=== PATIENT | female | born 1955 | race Caucasian/White ===

== ENCOUNTER → 2016-10-04 | Day surgery (SDC) | payer BC, OTHER ==
[2016-09-30 08:46] VITALS: Ht 149.9 cm; Wt 105.0 kg
[~2016-10-04] VITALS: Ht 149.9 cm; Wt 105.0 kg
[~2016-10-04] MED LIST: ALBU1AER9 INH; ASPI81TA28 PO; ASTN; ATROPINE SULFATE 0.1 MG/ML 5ML SYR IV PRN; BENZ100C7 PO; BIOT1CAP8 PO; CITA40TA4 PO; CYCL10TA6 PO; DOCU-94 PO; ETOD500T95 PO; EpHEDrine SULFATE INJ 50 MG/ML AMP IV PRN; FEXO1TAB46 PO; FURO-85 PO; GABA300C19 PO; HYDR-4383 PO; LEVO175T3 PO; LIDOCAINE HCL 2% 2 ML VIAL (20MG/ML) ONE; LPT40 PO; METF-384 PO; MULT-845 PO; NYSCR30 EXT; ONDANSETRON INJ 2 MG/ML 2 ML VIAL IV PRN; POTA-331 PO; PRLSR20 PO; PROPOFOL IV EMULSION 10 MG/ML 20 ML VIAL IV ONE; SUCCINYLCHOLINE CHLORIDE 20 MG/ML 10 ML VIAL IV ONE; TNR25 PO; TRAZ50TA35 PO; VITAMIN D2 PO
--- NOTE | 2016-10-04 14:17 | Endo History and Physical ---
History & Physical Date of Service: Oct 04, 2016. Chief Complaint: ABD pain, diarrhea Referring Physician: Giovani History of Present Illness Patient to have EGD for evaluation of cirrhosis. She was referred for colonosocpy to evalaute alteration of bowel habits, sometimes constipation and sometimes diarrhea. Past Medical History Diabetes, Arthritis, Asthma, Thyroid Disease Past Surgical History Hx Cardiac Surgery: No Hx Abdominal Surgery: Yes (, D&C) Hx of Implantable Prosthesis: No Hx Post-Op Nausea and Vomiting: No Hx Cancer Surgery: No Hx Thoracic Surgery: No Hx Orthopedic: Yes (LEFT HIP AND HARDWARE REMOVAL, RT/LEFT ACHILLES TENDON RECONSTRUCTION) Hx Urinary Tract Surgery: No Family History None Social History Smoking Status: Never Smoker Hx Substance Use: Yes (PAIN MEDS, SEE MED REC) Hx Alcohol Use: No Allergies Coded Allergies: Penicillins (Unverified Allergy, Intermediate, HIVES, 09/30/16) Current Medications Reported Home Medications Medications Dose Route/Sig Max Daily Dose Days Date Category Dose Instructions Colace (Docusate Sodium) 100 Mg Cap 1 Cap PO TID PRN 30 09/30/16 Reported Biotin 1 Mg Cap 1 Cap PO QAM 09/30/16 Reported [Vitamin D2] 1.25 Mg PO EVERY OTHER WEEK 09/30/16 Reported Prilosec (Omeprazole) 20 Mg Capcr 20 Mg PO QAM 09/30/16 Reported Levothyroxine Sodium 175 Mcg Tab 1 Tab PO QAM 90 09/30/16 Reported Citalopram Hydrobromide (Citalopram) 40 Mg Tab 1 Tab PO QAM 90 09/30/16 Reported Centrum Silver Adult 50+ (Multiple Vitamins W/ Minerals) 1 Tab Tab 1 Tab PO QAM 08/12/16 Reported Trazodone (Trazodone HCl) 50 Mg Tab 50 Mg PO HS 08/12/16 Reported Etodolac 500 Mg Tab 1 Tab PO BID 30 08/12/16 Reported Astelin Nasal [place] (Azelastine Hcl) 200 Sprays/30 Ml [place] 2 Sprays NA BID 08/12/16 Reported Benzonatate 100 Mg Cap 100 Mg PO TID PRN 08/12/16 Reported [place] 10/325 Tab (Acetaminophen/Hydrocodone Bitart) 1 Tab Tab 1 Tab PO BID PRN 08/03/15 Rx Proair Hfa (Albuterol) Aers 2 Puffs INH QID PRN 08/01/15 Reported Nystatin Cream (Nystatin) 90 Appln/30 Gm Cr 0 EXT BID PRN 08/01/15 Reported APPLY TO AFFECTED AREA BID Atenolol 25 Mg Tab 25 Mg PO HS 08/01/15 Rx Aspirin Ec (Aspirin) 81 Mg Tab 81 Mg PO QAM 01/05/15 Reported Atorvastatin Calcium (Atorvastatin) 40 Mg Tab 40 Mg PO HS 01/05/15 Reported Danita (Fexofenadine Hcl) 180 Mg Tab 180 Mg PO DAILY PRN 01/05/15 Reported Glucophage (Metformin Hcl) 1,000 Mg Tab 1,000 Mg PO BID 01/05/15 Reported Flexeril (Cyclobenzaprine Hcl) 10 Mg Tab 10 Mg PO HS 01/05/15 Reported Lasix (Furosemide) 20 Mg Tab 20 Mg PO BID PRN 01/05/15 Reported Klor-Con M10 (Potassium Chloride Microencaps) 10 Meq Tab 10 Meq PO BID 01/05/15 Reported TAKE THIS MEDICATION WITH FOOD. Neurontin (Gabapentin) 300 Mg Cap 300 Mg PO UD 04/28/12 Reported Take 1 tab (300 mg) by mouth in morning and midday, then 2 tabs (600 mg) in PM. Vital Signs Weight (Kilograms): 105 Height (Feet): 4 Height (Inches): 11 Date Time Temp Pulse Resp B/P Pulse Ox O2 Delivery O2 Flow Rate FiO2 10/04/16 14:00 36.8 72 20 146/85 94 Room Air Physical Exam General Appearance: no apparent distress Respiratory/Chest: Auscultation: deminished air movement Cardiovascular: Heart Auscultation: II/ JOSE Abdomen: Inspection & Palpation: soft Assessment and Plan EGD and colonoscopy today to evaluate for varices and a history of diarrhea. We have discussed the risks to include bleeding, infection, perforation, pain, and infection.
--- NOTE | 2016-10-04 15:12 | GI REPORT ---
Procedure Date: 10/04/2016 2:34 PM Procedure: Upper GI endoscopy Indications: Portal hypertension with suspected esophageal varices, Diarrhea Medicines: Monitored Anesthesia Care Complications: No immediate complications. Estimated blood loss: Minimal. Estimated Blood Loss: Estimated blood loss was minimal. Procedure: Pre-Anesthesia Assessment: - Prior to the procedure, a History and Physical was performed, and patient medications, allergies and sensitivities were reviewed. The patient's tolerance of previous anesthesia was reviewed. - The risks and benefits of the procedure and the sedation options and risks were discussed with the patient. All questions were answered and informed consent was obtained. - Patient identification and proposed procedure were verified prior to the procedure by the physician, the nurse and the independent contractor. The procedure was verified in the procedure room. - Pre-procedure physical examination revealed no contraindications to sedation. - ASA Grade Assessment: IV - A patient with severe systemic disease that is a constant threat to life. - After reviewing the risks and benefits, the patient was deemed in satisfactory condition to undergo the procedure. - The anesthesia plan was to use monitored anesthesia care (MAC). - Immediately prior to administration of medications, the patient was re-assessed for adequacy to receive sedatives. - The heart rate, respiratory rate, oxygen saturations, blood pressure, adequacy of pulmonary ventilation, and response to care were monitored throughout the procedure. - The physical status of the patient was re-assessed after the procedure. After obtaining informed consent, the endoscope was passed under direct vision. Throughout the procedure, the patient's blood pressure, pulse, and oxygen saturations were monitored continuously. The scope was introduced through the mouth, and advanced to the second part of duodenum. The upper GI endoscopy was accomplished without difficulty. The patient tolerated the procedure well. Findings: Two columns of grade I varices were found in the lower third of the esophagus, 34 to 38 cm from the incisors. They were 3 mm in largest diameter. No stigmata of recent bleeding were evident and no red fredo signs were present. The Z-line was regular and was found 38 cm from the incisors. Diffuse moderate inflammation characterized by erythema and granularity was found in the entire examined stomach. Biopsies were taken with a cold forceps for histology. Estimated blood loss was minimal. The examined duodenum was normal. Biopsies for histology were taken with a cold forceps for evaluation of celiac disease. Estimated blood loss was minimal. Impression: - Non-bleeding grade I esophageal varices. - Z-line regular, 38 cm from the incisors. - Gastritis. Biopsied. - Normal examined duodenum. Biopsied. Recommendation: - Perform a colonoscopy as previously scheduled. - Await pathology results. - Repeat the upper endoscopy in 1 year for surveillance. - Return to GI office in 6 months. Janis Hatch D.O. Janis Hatch, 10/04/2016 3:11:19 PM This report has been signed electronically. Note Initiated On: 10/04/2016 2:34 PM
--- NOTE | 2016-10-04 15:15 | GI REPORT ---
Procedure Date: 10/04/2016 2:44 PM Procedure: Colonoscopy Indications: Change in bowel habits Medicines: Monitored Anesthesia Care Complications: No immediate complications. Estimated blood loss: Minimal. Estimated Blood Loss: Estimated blood loss was minimal. Procedure: Pre-Anesthesia Assessment: - Prior to the procedure, a History and Physical was performed, and patient medications, allergies and sensitivities were reviewed. The patient's tolerance of previous anesthesia was reviewed. - The risks and benefits of the procedure and the sedation options and risks were discussed with the patient. All questions were answered and informed consent was obtained. - Patient identification and proposed procedure were verified prior to the procedure by the physician, the nurse and the clinical academic allergist. The procedure was verified in the procedure room. - Pre-procedure physical examination revealed no contraindications to sedation. - ASA Grade Assessment: IV - A patient with severe systemic disease that is a constant threat to life. - After reviewing the risks and benefits, the patient was deemed in satisfactory condition to undergo the procedure. - The anesthesia plan was to use monitored anesthesia care (MAC). - Immediately prior to administration of medications, the patient was re-assessed for adequacy to receive sedatives. - The heart rate, respiratory rate, oxygen saturations, blood pressure, adequacy of pulmonary ventilation, and response to care were monitored throughout the procedure. - The physical status of the patient was re-assessed after the procedure. After I obtained informed consent, the scope was passed under direct vision. Throughout the procedure, the patient's blood pressure, pulse, and oxygen saturations were monitored continuously. The Scope was introduced through the anus and advanced to the terminal ileum. The colonoscopy was performed without difficulty. The patient tolerated the procedure well. The quality of the bowel preparation was good. Findings: The perianal and digital rectal examinations were normal. Pertinent negatives include normal sphincter tone. The terminal ileum appeared normal. Normal mucosa was found in the entire colon. Fluid aspiration was performed through the scope suction channel. Sample(s) were sent for bacterial cultures, Clostridium difficile and ova and parasites. Biopsies for histology were taken with a cold forceps from the entire colon for evaluation of microscopic colitis. Estimated blood loss: 5 mL. Non-bleeding internal hemorrhoids were found during retroflexion. The hemorrhoids were moderate. The exam was otherwise without abnormality. Impression: - The examined portion of the ileum was normal. - Normal mucosa in the entire examined colon. Fluid aspiration performed. Biopsied. - Non-bleeding internal hemorrhoids. - The examination was otherwise normal. Recommendation: - Discharge patient to home (ambulatory). - Advance diet as tolerated today. - Await pathology results. - Repeat colonoscopy in 10 years for screening purposes. - Return to GI office as previously scheduled. - Alteration of bowel habits most likely related to medicaitons. Janis Hatch D.O. Janis Hatch, 10/04/2016 3:14:38 PM This report has been signed electronically. Note Initiated On: 10/04/2016 2:44 PM
--- NOTE | 2016-10-04 15:18 | Discharge Instructions ---
Endoscopy Patient Instructions Date / Procedure(s) Performed Oct 04, 2016. Colonoscopy, EGD Allergy Information Coded Allergies: Penicillins (Unverified Allergy, Intermediate, HIVES, 09/30/16) Discharge Date / Findings Oct 04, 2016. Small esophageal varices Moderate gastritis Internal hemorrhoids Medication Instructions Stopped Medication(s): Asprin 09/30/16 Reported Home Medications Medications Dose Route/Sig Max Daily Dose Days Date Category Dose Instructions Colace (Docusate Sodium) 100 Mg Cap 1 Cap PO TID PRN 30 09/30/16 Reported Biotin 1 Mg Cap 1 Cap PO QAM 09/30/16 Reported [Vitamin D2] 1.25 Mg PO EVERY OTHER WEEK 09/30/16 Reported Prilosec (Omeprazole) 20 Mg Capcr 20 Mg PO QAM 09/30/16 Reported Levothyroxine Sodium 175 Mcg Tab 1 Tab PO QAM 90 09/30/16 Reported Citalopram Hydrobromide (Citalopram) 40 Mg Tab 1 Tab PO QAM 90 09/30/16 Reported Centrum Silver Adult 50+ (Multiple Vitamins W/ Minerals) 1 Tab Tab 1 Tab PO QAM 08/12/16 Reported Trazodone (Trazodone HCl) 50 Mg Tab 50 Mg PO HS 08/12/16 Reported Etodolac 500 Mg Tab 1 Tab PO BID 30 08/12/16 Reported Astelin Nasal [place] (Azelastine Hcl) 200 Sprays/30 Ml [place] 2 Sprays NA BID 08/12/16 Reported Benzonatate 100 Mg Cap 100 Mg PO TID PRN 08/12/16 Reported [place] 10/325 Tab (Acetaminophen/Hydrocodone Bitart) 1 Tab Tab 1 Tab PO BID PRN 08/03/15 Rx Proair Hfa (Albuterol) Aers 2 Puffs INH QID PRN 08/01/15 Reported Nystatin Cream (Nystatin) 90 Appln/30 Gm Cr 0 EXT BID PRN 08/01/15 Reported APPLY TO AFFECTED AREA BID Atenolol 25 Mg Tab 25 Mg PO HS 08/01/15 Rx Aspirin Ec (Aspirin) 81 Mg Tab 81 Mg PO QAM 01/05/15 Reported Atorvastatin Calcium (Atorvastatin) 40 Mg Tab 40 Mg PO HS 01/05/15 Reported Danita (Fexofenadine Hcl) 180 Mg Tab 180 Mg PO DAILY PRN 4/27/15 Reported Glucophage (Metformin Hcl) 1,000 Mg Tab 1,000 Mg PO BID 01/05/15 Reported Flexeril (Cyclobenzaprine Hcl) 10 Mg Tab 10 Mg PO HS 01/05/15 Reported Lasix (Furosemide) 20 Mg Tab 20 Mg PO BID PRN 01/05/15 Reported Klor-Con M10 (Potassium Chloride Microencaps) 10 Meq Tab 10 Meq PO BID 01/05/15 Reported TAKE THIS MEDICATION WITH FOOD. Neurontin (Gabapentin) 300 Mg Cap 300 Mg PO UD 04/28/12 Reported Take 1 tab (300 mg) by mouth in morning and midday, then 2 tabs (600 mg) in PM. Provider Instructions Activity Restrictions - No exercising or heavy lifting for 24 hours. - Do not drink alcohol the day of the procedure. - Do not drive a car or operate machinery until the day after the procedure. - Do not make any important decisions or sign important papers in 24 hours after the procedure. Following Day: - Return to full activity which may include returning to work/school. Diet Start your diet with liquids and light foods (jello, soup, juice, toast). Then eat your usual diet if not nauseated. Treatment For Common After Affects For mild abdominal pain, bloating, or excessive gas: - Rest - Eat lightly - Lie on right side Follow-Up Information Follow-up with Dr. Matute as scheduled Repeat EGD in 1 year Alteration of bowel habits most likely medication related. Anesthesia Information What You Should Know You have had a procedure that required some medicine to reduce anxiety and discomfort. This treatment is called moderate sedation. After receiving the treatment, you may be sleepy, but you will be able to breathe on your own. The effects of the treatment may last for several hours. Follow these instructions along with Activity/Diet recommendations noted above: * Do NOT do anything where dizziness or clumsiness would be dangerous. * Rest quietly at home today, then you can be up and about tomorrow. * Have a responsible person stay with you the rest of today. * You may have had an I.V. today. If so, you may take the dressing off later today. Recommendations Call your doctor if: * Trouble breathing * Continuous vomiting for more than 24 hours * Temperature above 101 degrees * Severe abdominal pain or bloating * Pain not relieved by pain medicine ordered * There is increased drainage or redness from any incision * A large amount of rectal bleeding greater than 2-3 tablespoons. (If you had a polyp/s removed or have hemorrhoids, a small amount of blood - from the rectum is to be expected.) * You have any unanswered questions or concerns. IN THE EVENT OF A SERIOUS EMERGENCY, GO TO THE NEAREST EMERGENCY ROOM Your discharge instructions were prepared by provider Janis Hatch. Patient Instructions Signature Page Shaina Bustos Patient (or Guardian) Signature/Date: I have read and understand the instructions given to me by my caregivers. Caregiver/RN/Doctor Signature/Date: The above-named patient and/or guardian has received patient instructions on this date. + Original Patient Signature Page (only) stays with chart. Please make copy for patient.
--- NOTE | 2016-10-04 15:18 | Anesthesiology Progress Note ---
Anesthesia Post Op Note Date & Time Oct 04, 2016 at 15:17 Vital Signs Pain Intensity: 0 Vital Signs Past 12 Hours Date Time Temp Pulse Resp B/P Pulse Ox O2 Delivery O2 Flow Rate FiO2 10/04/16 14:00 36.8 72 20 146/85 94 Room Air Notes Mental Status: alert / awake / arousable, participated in evaluation Pt Amnestic to Procedure: Yes Nausea / Vomiting: adequately controlled Pain: adequately controlled Airway Patency, RR, SpO2: stable & adequate BP & HR: stable & adequate Hydration State: stable & adequate Anesthetic Complications: no major complications apparent
[2016-10-04 15:44] VITALS: BP 130/70; PULSE 68; O2SAT 97
[2016-10-07 01:27] LABS: O&P GIARDIA AG NOT DETECTED (NOT DETECTED)
== END | disposition home or self-care (01) ==
LOC: C.GI 13:21
PROVIDERS: ATTEND Internal Medicine Gastroenterology
DX: K29.50 Unspecified chronic gastritis without bleeding (principal); I85.10 Secondary esophageal varices without bleeding; K64.8 Other hemorrhoids; R19.4 Change in bowel habit; R10.9 Unspecified abdominal pain; E11.9 Type 2 diabetes mellitus without complications; E07.9 Disorder of thyroid, unspecified; Z79.899 Other long term (current) drug therapy

== ENCOUNTER → 2017-01-18 | Outpatient (CLI) | payer BC, OTHER ==
[~2017-01-18] MED LIST changes: +ALBU18002 INH; +ATEN-173 PO; -ATROPINE SULFATE 0.1 MG/ML 5ML SYR IV PRN; +CPR500 PO; +DFL50 PO; -EpHEDrine SULFATE INJ 50 MG/ML AMP IV PRN; +GABA-1218 PO; +GABA1CAP4 PO; -GABA300C19 PO; +HYDR-4079 PO; +IPRASOL4 INH; +LEVO100T7 PO; +LEVO88TA3 PO; -LIDOCAINE HCL 2% 2 ML VIAL (20MG/ML) ONE; +LXP10 PO; -ONDANSETRON INJ 2 MG/ML 2 ML VIAL IV PRN; +POTA10TA30 PO; -PROPOFOL IV EMULSION 10 MG/ML 20 ML VIAL IV ONE; -SUCCINYLCHOLINE CHLORIDE 20 MG/ML 10 ML VIAL IV ONE; +VANC1INJ94 IV
--- NOTE | 2017-01-19 08:15 | MAMMOGRAPHY REPORT ---
BILATERAL DIGITAL SCREENING MAMMOGRAM WITH CAD: 01/18/2017 CLINICAL HISTORY: Routine screening. Patient has no complaints. TECHNIQUE: Current study was also evaluated with a Computer Aided Detection (CAD) system. Bilatera l CC and MLO views were obtained. COMPARISON: Comparison is made to exams dated: 12/22/2015 mammogram, 10/09/2014 mammogram, 04/02/2013 mammogram, 03/22/2012 mammogram, 03/15/2011 mammogram, and 03/10/2010 mammogram - [facility]. BREAST COMPOSITION: There are scattered areas of fibroglandular density in both breasts. FINDINGS: No suspicious masses, calcifications, or areas of architectural distortion are noted in e ither breast. There has been no significant interval change compared to prior exams. IMPRESSION: ACR BI-RADS CATEGORY 1: NEGATIVE There is no mammographic evidence of malignancy. A 1 year screening mammogram is recommended. The p atient will receive written notification of the results. Approximately 10% of breast cancers are not detected with mammography. A negative mammographic repor t should not delay biopsy if a clinically suggestive mass is present. Bella Katz M.D. ah/:01/18/2017 14:04:49 Hand Tube Winder: Rajwinder TANNER(Elizabeth)(M), [facility] letter sent: Normal 1/2 BI-RADS Code: ACR BI-RADS Category 1: Negative
== END | disposition home or self-care (01) ==
LOC: C.MAMM 13:21
PROVIDERS: ATTEND Family Medicine
DX: Z12.31 Encounter for screening mammogram for malignant neoplasm of breast (principal)

== ENCOUNTER 2017-06-30 18:03 | Inpatient (IN) | payer BC, OTHER ==
[~2017-06-30] VITALS: Ht 149.9 cm; Wt 152.0 kg
[~2017-06-30 18:03] MED LIST changes: -ALBU18002 INH; -ATEN-173 PO; -BENZ100C7 PO; -BIOT1CAP8 PO; -CITA40TA4 PO; -CPR500 PO; -DFL50 PO; -DOCU-94 PO; -ETOD500T95 PO; -GABA-1218 PO; -GABA1CAP4 PO; -HYDR-4079 PO; -IPRASOL4 INH; -LEVO100T7 PO; -LEVO88TA3 PO; -LPT40 PO; -LXP10 PO; -POTA10TA30 PO; -TRAZ50TA35 PO; -VANC1INJ94 IV
[2017-06-30] MEDS ORDERED: ONDANSETRON INJ 2 MG/ML 2 ML VIAL IV STA (19:51)
[2017-06-30] MEDS ORDERED: SODIUM CHLORIDE 0.9% 1000ML 1,000 ML IV ONE (20:00)
--- NOTE | 2017-06-30 20:06 | EMERGENCY ROOM VISIT NOTE ---
History First contact with patient: 19:32 Chief Complaint: FLANK PAIN Stated Complaint: PAIN ON RIGHT SIDE BELOW RIBS History of Present Illness The patient is a 62 year old female who presents to the Emergency Room with complaints of severe right flank pain that radiates to her right abdomen for approximately 2 days. The pain was present yesterday. It temporarily got better. The pain returned today. The patient also notes urinary frequency and a little bit of burning with urination. The patient typically does have urinary incontinence. She denies any nausea or vomiting. She denies any fever or chills. No changes in bowel movements. She does get frequent UTIs. No history of kidney stones. Review of Systems 10 system review performed and negative unless noted in HPI or below Past Medical/Surgical History Medical Problems: (1) Asthma (2) Bilateral knee pain (3) Bilateral lower extremity edema (4) Cerebral palsy (5) Chronic pain (6) DM type 2 (diabetes mellitus, type 2) (7) Dyslipidemia (8) Fibromyalgia (9) History of migraine (10) History of pelvis/hip joint surgery (11) Hypothyroidism (12) NG (nonalcoholic steatohepatitis) (13) Obesity, morbid (more than 100 lbs over ideal weight or BMI > 40) (14) Obstructive sleep apnea (15) Osteoarthritis (16) Venous insufficiency Surgical Problems: (1) H/O Achilles tendon repair (2) H/O section (3) H/O wisdom tooth extraction (4) History of D&C Family History FH: CAD (coronary artery disease) MOTHER SISTER Social History Smoking Status: Never Smoker Alcohol Use: none Drug Use: none Marital Status: Housing Status: lives with family Occupation Status: disabled Current/Historical Medications Scheduled Aspirin (Aspirin Ec), 81 MG PO QAM Atenolol (Tenormin), 25 MG PO HS Atorvastatin (Atorvastatin Calcium), 40 MG PO HS Azelastine Hcl (Astelin Nasal [place]), 2 SPRAYS NA BID Biotin (Biotin), 1 CAP PO QAM Citalopram (Citalopram Hydrobromide), 1 TAB PO QAM Cyclobenzaprine Hcl (Flexeril), 10 MG PO HS Etodolac (Etodolac), 1 TAB PO BID Gabapentin (Neurontin), 300 MG PO UD Levothyroxine Sodium (Levothyroxine Sodium), 1 TAB PO DAILYBB Levothyroxine Sodium (Levothyroxine Sodium), 1 TAB PO DAILYBB Metformin Hcl (Glucophage), 1,000 MG PO BID Multiple Vitamins W/ Minerals (Centrum Silver Adult 50+), 1 TAB PO QAM Omeprazole (Prilosec), 20 MG PO QAM Potassium Chloride (Potassium Chloride Cr), 1 TAB PO BID Trazodone Hcl (Trazodone), 50 MG PO HS Scheduled PRN Albuterol Sulfate (Proair Respiclick), 2 PUFFS INH PRN PRN for SOB/Wheezing Benzonatate (Benzonatate), 100 MG PO TID PRN for Cough Docusate Sodium (Colace), 1 CAP PO TID PRN for Constipation Fexofenadine Hcl (Danita), 180 MG PO DAILY PRN for Allergies Furosemide (Lasix), 20 MG PO BID PRN for Edema Hydrocodone/Acetaminophen 10MG/325MG ([place] 10MG/325MG), 1 TAB PO BID PRN for Pain Nystatin (Nystatin Cream), 0 EXT BID PRN for rash Physical Exam Vital Signs Date Time Temp Pulse Resp B/P (MAP) Pulse Ox O2 Delivery O2 Flow Rate FiO2 06/30/17 23:12 90 18 146/103 93 Room Air 06/30/17 21:48 75 18 147/117 93 Room Air 06/30/17 18:06 36.8 96 18 181/84 95 Room Air Physical Exam VITALS: Vitals are noted on the nurse's note and reviewed by myself. Vital signs stable. GENERAL: 62-year-old female, obese, appears older than stated age, SKIN: The skin was brawny in appearance on the lower extremities HEAD: Normocephalic atraumatic. MOUTH: Mucous membranes dry NECK: . No JVD. HEART: Systolic murmur, regular rhythm without murmurs gallops or rubs. LUNGS: Clear to auscultation bilaterally without wheezes, rales or rhonchi. No accessory muscle use. ABDOMEN: Positive bowel sounds x 4.Soft, tenderness to palpation in the epigastric, right upper quadrant and right lower quadrant, without organomegaly. No guarding or rebound tenderness. MUSCULOSKELETAL: Trace nonpitting edema in the lower extremities bilaterally. No erythema or warmth appreciated bilaterally. Strength 5/5 throughout. NEURO: Patient was alert and oriented to person place and time. Normal sensation to touch. No focal neurological deficits. Medical Decision & Procedures ER Provider Diagnostic Interpretation: gallbladder ultrasound IMPRESSION: 1. Sludge within the gallbladder. No calculi identified 2. No ductal dilatation. 3. Suspected hepatic steatosis Electronically signed by: Caesar Pedroza M.D. 06/30/2017 10:[address] abd/pelvis IV contrast IMPRESSION: 1. 2.5 mm right renal calculus 2. Mild right-sided hydroureteronephrosis. No ureteral calculi identified 3. Indwelling Cline catheter 4. No evidence of bowel obstruction. No evidence of free air 5. No evidence of acute appendicitis. No evidence of acute diverticulitis 6. Mildly distended gallbladder 7. Mild hepatosplenomegaly. Possible early hepatic cirrhosis. Electronically signed by: Caesar Pedroza M.D. 06/30/2017 9:44 PM Dictated Date/Time: 06/30/2017 9:37 PM Laboratory Results 06/30/17 20:50 Red Blood Count 3.77, Mean Corpuscular Volume 97.9, Mean Corpuscular Hemoglobin 31.8, Mean Corpuscular Hemoglobin Concent 32.5, Mean Platelet Volume 12.4, Neutrophils (%) (Auto) 64.9, Lymphocytes (%) (Auto) 23.1, Monocytes (%) (Auto) 7.0, Eosinophils (%) (Auto) 4.4, Basophils (%) (Auto) 0.4, Neutrophils # (Auto) 3.55, Lymphocytes # (Auto) 1.26, Monocytes # (Auto) 0.38, Eosinophils # (Auto) 0.24, Basophils # (Auto) 0.02 06/30/17 20:50 Test 06/30/17 19:40 06/30/17 20:50 Urine Color YELLOW Urine Appearance CLEAR (CLEAR) Urine pH 5.0 (4.5-7.5) Urine Specific [place] 1.024 (1.000-1.030) Urine Protein NEG (NEG) Urine Glucose (UA) 3+ (NEG) Urine Ketones NEG (NEG) Urine Occult Blood 3+ (NEG) Urine Nitrite NEG (NEG) Urine Bilirubin NEG (NEG) Urine Urobilinogen NEG (NEG) Urine Leukocyte Esterase SMALL (NEG) Urine WBC (Auto) >30 /hpf (0-5) Urine RBC (Auto) 10-30 /hpf (0-4) Urine Hyaline Casts (Auto) 1-5 /lpf (0-5) Urine Epithelial Cells (Auto) >30 /lpf (0-5) Urine Bacteria (Auto) NEG (NEG) White Blood Count 5.46 K/uL (4.8-10.8) Red Blood Count 3.77 M/uL (4.2-5.4) Hemoglobin 12.0 g/dL (12.0-16.0) Hematocrit 36.9 % (37-47) Mean Corpuscular Volume 97.9 fL (80-100) Mean Corpuscular Hemoglobin 31.8 pg (25-34) Mean Corpuscular Hemoglobin Concent 32.5 g/dl (32-36) Platelet Count 97 K/uL (130-400) Mean Platelet Volume 12.4 fL (7.4-10.4) Neutrophils (%) (Auto) 64.9 % Lymphocytes (%) (Auto) 23.1 % Monocytes (%) (Auto) 7.0 % Eosinophils (%) (Auto) 4.4 % Basophils (%) (Auto) 0.4 % Neutrophils # (Auto) 3.55 K/uL (1.4-6.5) Lymphocytes # (Auto) 1.26 K/uL (1.2-3.4) Monocytes # (Auto) 0.38 K/uL (0.11-0.59) Eosinophils # (Auto) 0.24 K/uL (0-0.5) Basophils # (Auto) 0.02 K/uL (0-0.2) RDW Standard Deviation 48.9 fL (36.4-46.3) RDW Coefficient of Variation 13.7 % (11.5-14.5) Immature Granulocyte % (Auto) 0.2 % Immature Granulocyte # (Auto) 0.01 K/uL (0.00-0.02) Red Blood Cell Morphology Unremarkable Anion Gap 6.0 mmol/L (3-11) Estimated GFR () 80.5 Estimated GFR (Non- 69.5 BUN/Creatinine Ratio 10.5 (10-20) Calcium Level 9.3 mg/dl (8.5-10.1) Total Bilirubin 0.5 mg/dl (0.2-1) Aspartate Amino Transf (AST/SGOT) 30 U/L (15-37) Alanine Aminotransferase (ALT/SGPT) 32 U/L (12-78) Alkaline Phosphatase 156 U/L (45-117) Total Protein 7.5 gm/dl (6.4-8.2) Albumin 3.4 gm/dl (3.4-5.0) Globulin 4.1 gm/dl (2.5-4.0) Albumin/Globulin Ratio 0.8 (0.9-2) Lipase 92 U/L (73-393) Medications Administered Medications (Trade) Dose Ordered Sig/Betsy Route Start Time Stop Time Status Last Admin Dose Admin Morphine Sulfate (MoRPHine SULFATE INJ) 4 mg Q1H PRN IV 06/30/17 20:00 07/14/17 19:59 06/30/17 22:31 4 MG Ondansetron HCl (Zofran Inj) 4 mg NOW STAT IV 06/30/17 19:51 06/30/17 19:54 DC 06/30/17 20:50 4 MG Sodium Chloride 1,000 ml @ 999 mls/hr Q1H1M ONCE IV 06/30/17 20:00 06/30/17 21:00 DC 06/30/17 20:50 999 MLS/HR Hydromorphone HCl (Dilaudid Inj) 1 mg ONE ONCE IV 06/30/17 22:45 06/30/17 22:46 DC 06/30/17 23:08 1 MG Ciprofloxacin/ Dextrose (Cipro / D5W) 400 mg NOW STAT IV 06/30/17 22:34 06/30/17 22:35 DC 06/30/17 23:08 400 MG ED Course Patient was seen and examined Vital signs including blood pressure were reviewed medications list was verified with patient Labs were obtained, and a saline lock was established The patient was medicated with morphine, Zofran and fluids. Imaging was performed and reviewed Upon reassessment, the patient was still complaining of pain. She was ordered 1 dose of Dilaudid 1 mg IV. We discussed the results of her workup. A gallbladder ultrasound was performed and reviewed. The patient was again reassessed. She was still complaining of pain. The pain was exacerbated with deep breaths. Chest x-ray was ordered The case was discussed with case management in addition to the [facility] hospitalist group. They agreed to admit the patient for further workup. Medical Decision DIFFERENTIAL DIAGNOSIS: Ureteral stone, pyelonephritis, Gastroenteritis, Hepatitis, cholecystitis, cholangitis, biliary colic, pancreatitis, appendicitis, inguinal hernia, nephrolithiasis, inflammatory bowel disease, mesenteric adenitis, peptic ulcer disease, GERD, gastritis, pancreatitis,, bowel obstruction, splenic infarct, diverticulitis, mesenteric ischemia, metabolic, peritonitis, among others. This patient is a 62-year-old female that presents emergency department with complaints of right-sided flank pain into the right side of her abdomen. She also was complaining of urinary frequency. I thought that she had a kidney stone or UTI. It does appear that she has a urinary tract infection. CT of the abdomen and pelvis was performed. No ureteral stone was noted. Her labs revealed a elevation in her alkaline phosphatase. I ordered a gallbladder ultrasound to assess for possible stone. Sludge was noted. No stone or ductal dilatation was found. The patient had multiple doses of pain medication with minimal relief. The etiology of her pain is unclear. I believe she needs to be admitted for further workup and treatment This chart was completed in part utilizing [employer] Speech Voice Recognition software. Attempts were made to minimize the grammatical errors, random word insertions, pronoun errors and incomplete sentences. Any formal questions or concerns about the content, text or information contained within the body of this dictation should be directly addressed to the provider for clarification. Medication Reconcilliation Current Medication List: was personally reviewed by me Blood Pressure Screening Patient's blood pressure: Elevated blood pressure Blood pressure disposition: Did not require urgent referral Impression Primary Impression: Abdominal pain Additional Impression: UTI (urinary tract infection) Departure Information Referrals No Doctor, Assigned (PCP) Patient Instructions [facility] Problem Qualifiers
[2017-06-30 20:32] LABS: MANUAL MICROSCOPIC REQUIRED? NO; REVIEW REQ? NO; URINE APPEARANCE CLEAR (CLEAR); URINE BILIRUBIN NEG (NEG); URINE COLOR YELLOW; URINE EPITHELIAL CELL AUTO >30 /lpf (0-5); URINE NITRITE NEG (NEG); URINE SPECIFIC GRAVITY 1.024 (1.000-1.030); UROBILINOGEN NEG (NEG)
[2017-06-30] MEDS: MoRPHine SULFATE 4 MG/ML 1 ML CARP\\VIAL IV PRN ×2 (20:50→22:31)
[2017-06-30 21:40] LABS: ALT/SGPT 32 U/L (12-78); BLOOD UREA NITROGEN 9 mg/dl (7-18); BUN/CREATININE RATIO 10.5 (10-20); CALCIUM 9.3 mg/dl (8.5-10.1); CARBON DIOXIDE 26 mmol/L (21-32); CHLORIDE 106 mmol/L (98-107); CREATININE 0.89 mg/dl (0.60-1.20); GLUCOSE 290 mg/dl (70-99); SODIUM 138 mmol/L (136-145)
[2017-06-30 21:43] LABS: ALB/GLOB RATIO 0.8 (0.9-2); ALKALINE PHOSPHATASE 156 U/L (45-117); AST/SGOT 30 U/L (15-37)
--- NOTE | 2017-06-30 21:45 | DIAGNOSTIC IMAGING REPORT ---
CT SCAN OF THE ABDOMEN AND PELVIS WITHOUT CONTRAST CLINICAL HISTORY: Right flank pain COMPARISON STUDY: June 2010 TECHNIQUE: CT scan of the abdomen and pelvis was performed from the lung bases to the proximal femurs. Images are reviewed in the axial, sagittal, and coronal planes. IV contrast was not administered for this examination. A dose lowering technique was utilized adhering to the principles of ALARA. CT DOSE: 2210.82 mGy.cm FINDINGS: The examination is degraded by patient motion artifact Lower chest: There are minor basilar atelectatic changes. There is a stable 3 mm right middle lobe pulmonary nodule Liver: There is mild hepatic steatosis. There is a somewhat nodular hepatic contour. Cirrhosis cannot be excluded. The liver is mildly enlarged. Gallbladder: Mildly distended. No calculi are visualized. Spleen: Mild splenomegaly Pancreas: Unremarkable. Adrenal glands: Unremarkable. Kidneys: There is a 2.5 mm right renal calculus. There is mild right-sided hydronephrosis. There is mild right ureteral dilatation. There is an indwelling Cline catheter. No ureteral calculi are visualized. Bowel: There are no transition zone to indicate bowel obstruction. There is no evidence of acute appendicitis. There is colonic diverticulosis. There are no acute peridiverticular inflammatory changes. Peritoneum: There is no intraperitoneal free air or abdominal ascites. Vasculature: The abdominal aorta is normal in course and caliber. Adenopathy: None. Pelvic viscera: There is indwelling Cline catheter. Skeletal structures: No destructive osseous lesions are seen. IMPRESSION: 1. 2.5 mm right renal calculus 2. Mild right-sided hydroureteronephrosis. No ureteral calculi identified 3. Indwelling Cline catheter 4. No evidence of bowel obstruction. No evidence of free air 5. No evidence of acute appendicitis. No evidence of acute diverticulitis 6. Mildly distended gallbladder 7. Mild hepatosplenomegaly. Possible early hepatic cirrhosis. Electronically signed by: Caesar Pedroza M.D. 06/30/2017 9:44 PM Dictated Date/Time: 06/30/2017 9:37 PM
[2017-06-30 22:21] LABS: HEMATOCRIT 36.9 % (37-47); MEAN CELL VOLUME 97.9 fL (80-100); MEAN CORPUSCULAR HEMOGLOBIN 31.8 pg (25-34); MEAN CORPUSCULAR HGB CONC 32.5 g/dl (32-36); MEAN PLATELET VOLUME 12.4 fL (7.4-10.4); PLATELET COUNT 97 K/uL (130-400); RED BLOOD COUNT 3.77 M/uL (4.2-5.4); WHITE BLOOD COUNT 5.46 K/uL (4.8-10.8)
[2017-06-30 22:22] LABS: BASO % 0.4 %; BASO ABS # 0.02 K/uL (0-0.2); COMPLETE YES; EOS % 4.4 %; IG% 0.2 %; LYMPH % 23.1 %; LYMPH ABS # 1.26 K/uL (1.2-3.4); NEUT % 64.9 %
[2017-06-30] MEDS ORDERED: CIPROFLOXACIN 400MG / 200ML D5W IV STA (22:34)
[2017-06-30] MEDS ORDERED: HYDROmorphone INJ 1 MG/ML SYR IV ONE (22:45)
--- NOTE | 2017-06-30 22:59 | DIAGNOSTIC IMAGING REPORT ---
BILIARY ULTRASOUND CLINICAL HISTORY: Right upper quadrant abdominal pain. Elevated alkaline phosphatase. COMPARISON STUDY: CT scan dated 06/30/2017, ultrasound dated 10/02/2007. FINDINGS: The examination was limited from a technical standpoint secondary to the patient's body habitus, and inability to take deep breaths. The pancreas appears normal as visualized. There is no ductal dilatation. The common bile duct measures 3 mm. The liver was difficult to penetrate and of increased echogenicity. Hepatic steatosis is suspected. There is no right-sided hydronephrosis. No gallstones are visualized. There is sludge within the dependent gallbladder. IMPRESSION: 1. Sludge within the gallbladder. No calculi identified 2. No ductal dilatation. 3. Suspected hepatic steatosis Electronically signed by: Caesar Pedroza M.D. 06/30/2017 10:58 PM Dictated Date/Time: 06/30/2017 10:55 PM
--- NOTE | 2017-07-01 00:01 | DIAGNOSTIC IMAGING REPORT ---
SINGLE VIEW CHEST CLINICAL HISTORY: Hypoxia. FINDINGS: An AP, portable, upright chest radiograph is compared to chest x-ray and chest CT dated 08/12/2016. The examination is degraded by portable technique, large body habitus, and patient rotation. The heart is enlarged. The pulmonary vasculature is noncongested. There is mild elevation right hemidiaphragm and bibasilar atelectasis. The lungs and pleural spaces are otherwise clear. No pneumothorax is seen. The skeletal structures are osteopenic. The bony thorax is grossly intact. IMPRESSION: Mild cardiac enlargement with no acute cardiopulmonary abnormality. Electronically signed by: Selvin Barroso M.D. 07/01/2017 12:00 AM Dictated Date/Time: 06/30/2017 11:59 PM
[2017-07-01 01:42] LABS: MAGNESIUM 1.7 mg/dl (1.8-2.4)
[2017-07-01 02:20] VITALS: BP 139/77; PULSE 104; TEMP 36.9; O2SAT 97
[2017-07-01] MEDS ORDERED: INSULIN ASPART 100 UNITS/ML 3 ML PEN SC ONE (02:22)
[2017-07-01] MEDS ORDERED: INSULIN GLARGINE SOLOSTAR 100 UNITS/ML 3 ML PEN SC ONE ×2 (02:22→20:12)
[2017-07-01] MEDS ORDERED: GLUCOSE 40% GEL 15 GM TUBE PO PRN (02:30)
[2017-07-01] MEDS ORDERED: DOCUSATE SODIUM 100 MG CAP PO PRN (02:30)
[2017-07-01] MEDS ORDERED: GLUCAGON FOR INJ 1 MG VIAL SQ PRN (02:30)
[2017-07-01] MEDS ORDERED: GLUCOSE 10 TABS/TUBE PO PRN (02:30)
[2017-07-01] MEDS ORDERED: FEXOFENADINE HCL 180 MG TAB PO PRN (02:30)
[2017-07-01] MEDS ORDERED: DEXTROSE 50% 50 ML SYR IV PRN (02:30)
[2017-07-01] MEDS ORDERED: ACETAMINOPHEN 325 MG TAB PO PRN (02:30)
[2017-07-01] MEDS ORDERED: MAGNESIUM SULFATE 1GM / D5W 1 GM in PREMIXED IN D5W 100 ML IV STA (02:33)
[2017-07-01] MEDS ORDERED: HYDROmorphone INJ 0.5 MG/0.5 ML SYR IV PRN (02:45)
[2017-07-01] MEDS ORDERED: PATIENT'S HEIGHT AND/OR WEIGHT NEEDED SCH (03:00)
[2017-07-01] MEDS: HYDROCODONE/ACETAMI 10/325 TAB PO PRN (03:05)
[2017-07-01 03:27] VITALS: BP 139/77; PULSE 104; TEMP 36.9; BMI 67.7
[2017-07-01] MEDS: LEVOTHYROXINE 100 MCG TAB PO SCH (05:44)
[2017-07-01] MEDS: LEVOTHYROXINE 88 MCG TAB PO SCH (05:44)
--- NOTE | 2017-07-01 06:05 | HISTORY & PHYSICAL EXAMINATION ---
DATE OF ADMISSION: 07/01/2017 PRIMARY CARE DOCTOR: Jorge Matute MD CHIEF COMPLAINT: Right flank pain. HISTORY OF PRESENT ILLNESS: History obtained from patient and records. Medical history significant for hypertension, hyperlipidemia, fibromyalgia as per records, fatty liver disease, sleep apnea on CPAP, DM2 on oral meds. chronic thrombocytopenia. Recent confinement was August 2016 for atypical chest pain. Two days history of achy right flank pain going to her right lower belly with nausea. The patient also noted urinary frequency, burning. No vomiting, no fever, no chills. At the Emergency Room, the patient received ciprofloxacin for UTI. MEDICAL HISTORY: As above, SURGERIES: [place] tooth extraction, gynecologic procedures, section, Achilles tendon repair, dental surgery, hip surgery. HOME MEDICATIONS: Include benzonatate, Flexeril, citalopram, Colace, etodolac, Danita, Lasix, Neurontin, [place], levothyroxine, Glucophage, multivitamins, Prilosec, potassium chloride, trazodone, aspirin, Astelin, ProAir, atenolol, atorvastatin, biotin. ALLERGIES: ALLERGIC TO PENICILLIN. FAMILY HISTORY: Heart disease. PERSONAL SOCIAL HISTORY: Nonsmoker, no ETOH intake, retired [employer] employee. REVIEW OF SYSTEMS: As per HPI, all other ROS negative. PHYSICAL EXAMINATION: VITAL SIGNS: Blood pressure noted to be 146/103, later 124/94, pulse rate 90, RR 18, temperature 36.8, sats 98% on room air. GENERAL: Noted to be obese, slightly uncomfortable, no respiratory distress. SKIN: Normal color, warm. HEENT: [place] palpebral conjunctivae, No ptosis. dry mucosa. NECK: Short, supple. CHEST: Decreased breath sounds, no anterior wall chest tenderness. CV: Regular rate and rhythm, palpable lower extremity pulses. ABDOMEN: Some distention, tenderness in the right lower quadrant. EXTREMITIES: LE Venous stasis. No tenderness. NEUROLOGIC: Coherent. No gross focality. LABS: Hemoglobin was noted to be 12, hematocrit 36.1, white blood cell count 5.4, platelets 91. Sodium 138, potassium 4, chloride 106, CO2 of 26, BUN 9, creatinine 0.8, glucose 290 Hemoglobin A1c March 2017 was 6.9. UA: Small wbcs. IMAGING: Chest x-ray showed mild cardiomegaly. CT abdomen and pelvis showed right-sided hydroureteronephrosis. ASSESSMENT: 1. Complicated urinary tract infection, no sepsis. Right hydronephrosis on CT ? Passed stone 2. Hypertension, slightly elevated. 3. Fibromyalgia as per records 4. DM2 on oral meds, reasonable control as of recent outpatient HgA1c. 5. History of cirrhosis secondary to nonalcoholic fatty liver disease. 6. Thrombocytopenia, likely secondary to cirrhosis. PLAN: GMF CS, Ciprofloxacin Urology consult RE R hydronephrosis ISS BG goal 140-180 DVT prophylaxis SCDs RE thrombocytopenia. Full code. MTDD
[2017-07-01 07:08] VITALS: BP 139/95; PULSE 79; TEMP 36.8; O2SAT 94
[2017-07-01 07:34] LABS: BASO % 0.3 %; BASO ABS # 0.03 K/uL (0-0.2); COMPLETE YES; EOS % 3.9 %; HEMATOCRIT 37.8 % (37-47); IG% 0.2 %; LYMPH % 17.1 %; LYMPH ABS # 1.64 K/uL (1.2-3.4); MEAN CELL VOLUME 99.7 fL (80-100); MEAN CORPUSCULAR HEMOGLOBIN 32.5 pg (25-34); MEAN CORPUSCULAR HGB CONC 32.5 g/dl (32-36); MEAN PLATELET VOLUME 12.3 fL (7.4-10.4); MONO % 9.9 %; NEUT % 68.6 %; PLATELET COUNT 135 K/uL (130-400); RED BLOOD COUNT 3.79 M/uL (4.2-5.4); WHITE BLOOD COUNT 9.57 K/uL (4.8-10.8)
[2017-07-01 08:01] LABS: BUN/CREATININE RATIO 10.5 (10-20); CALCIUM 9.2 mg/dl (8.5-10.1); CREATININE 1.13 mg/dl (0.60-1.20); POTASSIUM 4.5 mmol/L (3.5-5.1)
[2017-07-01 08:04] LABS: ALB/GLOB RATIO 0.9 (0.9-2)
[2017-07-01] MEDS: GABAPENTIN 300 MG CAP PO SCH ×3 (08:21→21:08)
[2017-07-01] MEDS: PANTOprazole SOD 40 MG TAB PO SCH (08:22)
[2017-07-01] MEDS: CEROVITE ADV FORMULA TAB PO SCH (08:22)
[2017-07-01] MEDS: LACTOBACILLUS ACIDOPHILUS (FLORANEX) TAB PO SCH ×3 (08:22→17:12)
[2017-07-01] MEDS: ASPIRIN 81 MG ECTAB PO SCH (08:24)
[2017-07-01] MEDS: CITALOPRAM 40 MG TAB PO SCH (08:24)
[2017-07-01] MEDS: INSULIN ASPART 100 UNITS/ML 3 ML PEN SC SCH ×4 (08:27→21:11)
[2017-07-01] MEDS ORDERED: CIPROFLOXACIN CONSULT ACTIVE PRN ×2 (09:00)
--- NOTE | 2017-07-01 09:56 | Urology Consultation ---
History General Date of Service: Jul 01, 2017. Chief Complaint: UTI, Illness Primary Care Physician: No Doctor, Assigned Pt seen a urologist before?: No History of Present Illness Patient admitted with UTI and exacerbation of chronic medical issues. On abx. Mild improvement but overall feels "ill". Not ambulating. CT imaging reviewed mild hydroureteronephrosis to bladder without obvious obstruction. No history of stones. Moderate abd/pelvic/flank pain and discomfort. Comes in waves. Radiates to groin. Severe at times, but tolerable. Laboratory Labs were reviewed and are within normal limits unless listed below. Labs are available in the chart and at [facility] Problem List Medical Problems: (1) Abdominal pain Status: Acute (2) Contusion of left hip Status: Acute (3) Contusion of left shoulder Status: Acute (4) Dehydration Status: Acute (5) Elevated troponin Status: Acute (6) Frequent falls Status: Acute (7) Hypoxia Status: Acute (8) Lactic acidosis Status: Acute (9) Left sided chest pain Status: Acute (10) UTI (urinary tract infection) Status: Acute (11) Weakness Status: Acute Family History FH: CAD (coronary artery disease) MOTHER SISTER Social History Hx Tobacco Use In Past Year?: No Marital status: Housing status: lives with family Occupation status: disabled Immunizations History of Influenza Vaccine: Yes Influenza Vaccine Date: May 22, 2015 History of Pneumococcal: Yes Allergies Coded Allergies: Penicillins (Unverified Allergy, Intermediate, HIVES, 06/30/17) Medications Home Medications: Home Meds and Scripts Medications Dose Route/Sig Max Daily Dose Days Date Category Dose Instructions Tenormin (Atenolol) 25 Mg Tab 25 Mg PO HS 06/30/17 Reported [place] 10MG/325MG (Acetaminophen/Hydrocodone Bitart) Tab 1 Tab PO BID PRN 06/30/17 Reported PRN PAIN Potassium Chloride Cr (Potassium Chloride) 10 Meq Tab 1 Tab PO BID 06/30/17 Reported Levothyroxine Sodium 100 Mcg Tab 1 Tab PO DAILYBB 06/30/17 Reported TAKE WITH 88MCG TAB Levothyroxine Sodium 88 Mcg Tab 1 Tab PO DAILYBB 06/30/17 Reported TAKE WITH 100MCG TAB Proair Respiclick (Albuterol Sulfate) 108 Mcg/Act Aer 2 Puffs INH PRN PRN 06/30/17 Reported Colace (Docusate Sodium) 100 Mg Cap 1 Cap PO TID PRN 09/30/16 Reported Biotin 1 Mg Cap 1 Cap PO QAM 09/30/16 Reported Prilosec (Omeprazole) 20 Mg Capcr 20 Mg PO QAM 09/30/16 Reported Citalopram Hydrobromide (Citalopram) 40 Mg Tab 1 Tab PO QAM 09/30/16 Reported Centrum Silver Adult 50+ (Multiple Vitamins W/ Minerals) 1 Tab Tab 1 Tab PO QAM 08/12/16 Reported Trazodone (Trazodone HCl) 50 Mg Tab 50 Mg PO HS 08/12/16 Reported Etodolac 500 Mg Tab 1 Tab PO BID 08/12/16 Reported Astelin Nasal [place] (Azelastine Hcl) 200 Sprays/30 Ml [place] 2 Sprays NA BID 08/12/16 Reported Benzonatate 100 Mg Cap 100 Mg PO TID PRN 08/12/16 Reported Nystatin Cream (Nystatin) 90 Appln/30 Gm Cr 0 EXT BID PRN 08/01/15 Reported APPLY TO AFFECTED AREA BID Aspirin Ec (Aspirin) 81 Mg Tab 81 Mg PO QAM 01/05/15 Reported Atorvastatin Calcium (Atorvastatin) 40 Mg Tab 40 Mg PO HS 01/05/15 Reported Danita (Fexofenadine Hcl) 180 Mg Tab 180 Mg PO DAILY PRN 01/05/15 Reported Glucophage (Metformin Hcl) 1,000 Mg Tab 1,000 Mg PO BID 01/05/15 Reported Flexeril (Cyclobenzaprine Hcl) 10 Mg Tab 10 Mg PO HS 01/05/15 Reported Lasix (Furosemide) 20 Mg Tab 20 Mg PO BID PRN 01/05/15 Reported Neurontin (Gabapentin) 300 Mg Cap 300 Mg PO UD 04/28/12 Reported Take 1 tab (300 mg) by mouth in morning and midday, then 2 tabs (600 mg) in PM. Inpatient Medications: Current Inpatient Medications Medications (Trade) Dose Ordered Sig/Betsy Route Start Time Stop Time Status Last Admin Dose Admin Acetaminophen (Tylenol Tab) 325 mg Q6H PRN PO 07/01/17 02:30 07/31/17 02:29 07/01/17 08:36 325 MG Insulin Aspart (novoLOG ASPART) SLIDING SCALE If C... ACHS SC 07/01/17 06:30 07/31/17 06:29 07/01/17 08:27 2 UNITS Glucose (Glucose 40% Gel) 15-30 GRAMS 15 GRAMS... UD PRN PO 07/01/17 02:30 07/31/17 02:29 Glucose (Glucose Chew Tab) 4-8 Tablets 4 Tabl... UD PRN PO 07/01/17 02:30 07/31/17 02:29 Dextrose (Dextrose 50% 50ML Syringe) 25-50ML OF 50% DW IV FOR... UD PRN IV 07/01/17 02:30 07/31/17 02:29 Glucagon (Glucagon Inj) 1 mg UD PRN SQ 07/01/17 02:30 07/31/17 02:29 Ciprofloxacin (Consult) 1 ea DAILY PRN N/A 07/01/17 09:00 07/31/17 08:59 Aspirin (Ecotrin Tab) 81 mg QAM PO 07/01/17 09:00 07/31/17 08:59 07/01/17 08:24 81 MG Atenolol (Tenormin Tab) 25 mg HS PO 07/01/17 21:00 07/31/17 20:59 Atorvastatin Calcium (Lipitor Tab) 40 mg HS PO 07/01/17 21:00 07/31/17 20:59 Citalopram Hydrobromide (celeXA TAB) 40 mg QAM PO 07/01/17 09:00 07/31/17 08:59 07/01/17 08:24 40 MG Cyclobenzaprine HCl (Flexeril Tab) 10 mg HS PO 07/01/17 21:00 07/31/17 20:59 Docusate Sodium (coLACE CAP) 100 mg TID PRN PO 07/01/17 02:30 07/31/17 02:29 Fexofenadine HCl (Danita Tab) 180 mg DAILY PRN PO 07/01/17 02:30 07/31/17 02:29 Gabapentin (Neurontin Cap) 300 mg BID@0900,1400 PO 07/01/17 09:00 07/31/17 08:59 07/01/17 08:21 300 MG Acetaminophen/ Hydrocodone Bitart ([place] 10/325 Tab) 1 tab BID PRN PO 07/01/17 02:30 07/15/17 02:29 07/01/17 03:05 1 TAB Levothyroxine Sodium (Synthroid Tab) 88 mcg DAILYBB PO 07/01/17 06:30 07/31/17 06:29 07/01/17 05:44 88 MCG Levothyroxine Sodium (Synthroid Tab) 100 mcg DAILYBB PO 07/01/17 06:30 07/31/17 06:29 07/01/17 05:44 100 MCG Multivitamins/ Minerals (Multivitamin W/ Minerals Tab) 1 tab QAM PO 07/01/17 09:00 07/31/17 08:59 07/01/17 08:22 1 TAB Trazodone HCl (Desyrel Tab) 50 mg HS PO 07/01/17 21:00 07/31/17 20:59 Miscellaneous Information (Order Awaiting Action) 1 ea QS N/A 07/01/17 08:00 07/31/17 07:59 Pantoprazole Sodium (Protonix Tab) 40 mg QAM PO 07/01/17 09:00 07/31/17 08:59 07/01/17 08:22 40 MG Lactobacillus Acidophilus (Floranex Tab) 4 tab TIDM PO 07/01/17 08:00 07/31/17 07:59 07/01/17 08:22 4 TAB Hydromorphone HCl (Dilaudid Inj) 0.5 mg Q3H PRN IV 07/01/17 02:45 07/15/17 02:44 Gabapentin (Neurontin Cap) 600 mg PM PO 07/01/17 21:00 07/31/17 20:59 Ciprofloxacin/ Dextrose 400 mg/ Prmx 200 ml @ 100 mls/hr Q12H IV 07/01/17 11:00 07/10/17 12:59 Review of Systems Review of Systems All Other Systems: Reviewed and Negative Additional Comments: All reviewed, pertinent positives and negatives in HPI Physical Exam Vital Signs: Vital Signs Past 12 Hours Date Time Temp Pulse Resp B/P (MAP) Pulse Ox O2 Delivery O2 Flow Rate FiO2 07/01/17 08:00 Nasal Cannula 3.0 07/01/17 07:08 36.8 79 16 139/95 (110) 94 Nasal Cannula 3.0 07/01/17 03:27 36.9 104 20 139/77 Nasal Cannula 3.0 07/01/17 02:20 36.9 104 20 139/77 (97) 97 Nasal Cannula 3.0 07/01/17 01:51 104 20 124/94 98 Nasal Cannula 2.0 06/30/17 23:12 90 18 146/103 93 Room Air Physical Exam: General Appearance: WD/WN, no apparent distress, + obese Eyes: bilateral eyes normal inspection ENT: normal ENT inspection, hearing grossly normal Neck: supple, no JVD Respiratory/Chest: no respiratory distress, no accessory muscle use Cardiovascular: regular rate, rhythm Gastrointestinal: Abdomen: diffuse Bladder: normal bladder Genitourinary - Female: External Genitalia: pertinent finding (Nova in place draining urine with mild sediment) Extremities: normal range of motion 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 UTI 2. Right Hydroureteronephrosis 3. Small right nonobstructing renal stone Patient with multiple medical issues and comorbidities. Currently improving on antibiotics and nova catheter drainage. Will need to be monitored and await full culture and sensitivies. May need catheter for few days for maximum drainage and monitoring. May need repeat MALU to assess resolution of hydro. Possibly passed stone with residual hydronephrosis that should improve. Will need outpatient workup and assessment and monitoring to further assess system , bladder function, and stone disease. Will plan outpatient clinic follow up after resolution of acute illness. Imaging was reviewed and interpreted by myself. Agree with reported findings.
[2017-07-01] MEDS ORDERED: CIPROFLOXACIN 400MG / D5W IV SCH (11:00)
[2017-07-01 15:05] VITALS: BP 131/74; PULSE 78; TEMP 37.2; O2SAT 92
--- NOTE | 2017-07-01 18:10 | Progress Note ---
Progress Note Date of Service Jul 01, 2017. Progress Note ATTENDING NOTE : pt admitted earlier today 62 yo F presented with rt flank pain CT abdomen /pelvis shows - Right Hydroureteronephrosis, Small right nonobstructing renal stone UA grossly positive , started empirically with IV Ciprofloxacin no evidence of sepsis , normal white count , no fever or chills Urine culture > 3 type organism , possible contamination repeat urine culture ordered Urology eval requested , appreciate input cont empiric Abx , Cline catheter for adequate drainage ( hx of urinary retention ) no Urologic intervention needed out pt follow up with Urology Medicine follow up with Dr Matute
--- NOTE | 2017-07-01 18:15 | Discharge Instructions ---
Discharge Instructions Date of Service Jul 01, 2017. Admission Reason for Admission: Complicated Uti Discharge Discharge Diagnosis / Problem: KIDNEY STONE Discharge Goals Goal(s): Improve function, Improve disease control, Diagnostic testing, Therapeutic intervention Activity Recommendations Activity Limitations: resume your previous activity . Instructions / Follow-Up Instructions / Follow-Up HOSPITAL FOLLOW UP 07/10/2017 11:20 AM Carter Chan MD [facility] UROLOGY FOLLOW UP WITH DR MONIK KING IN 1-2 WEEKS , OFFICE WILL CALL FOR APPOINTMENT Current Hospital Diet Patient's current hospital diet: AHA Diet (Heart Healthy), Diabetes Type 2 Diet Discharge Diet Recommended Diet: AHA Diet (Heart Healthy), Diabetes Type 2 Diet Pending Studies Studies pending at discharge: no Medical Emergencies . Who to Call and When: Medical Emergencies: If at any time you feel your situation is an emergency, please call 911 immediately. . Non-Emergent Contact Non-Emergency issues call your: Primary Care Provider . . "Provider Documentation" section prepared by Ledy Ocasio. . VTE Core Measure Inpt VTE Proph given/why not?: Unfractionated heparin SQ
[2017-07-01] MEDS ORDERED: CPR500 PO (18:17)
[2017-07-01] MEDS: CIPROFLOXACIN 500 MG TAB PO SCH (21:07)
[2017-07-01] MEDS: TRAZODONE HCL 50 MG TAB PO SCH (21:07)
[2017-07-01] MEDS: ATORVASTATIN 40 MG TAB PO SCH (21:07)
[2017-07-01] MEDS: CYCLOBENZAPRINE HCL 10 MG TAB PO SCH (21:08)
[2017-07-01] MEDS ORDERED: LEVALBUTEROL/IPRATROPIUM NEB INH STA (21:22)
[2017-07-01] MEDS ORDERED: IPRATROPIUM BROMIDE NEB SOLN 0.02% 2.5 ML VIAL INH STA (21:27)
[2017-07-01] MEDS ORDERED: LEVALBUTEROL 1.25MG/0.5ML NEB INH STA (21:27)
[2017-07-01] MEDS ORDERED: IPRATROPIUM BROMIDE NEB SOLN 0.02% 2.5 ML VIAL INH PRN (21:30)
[2017-07-01] MEDS ORDERED: LEVALBUTEROL/IPRATROPIUM NEB INH PRN (21:30)
[2017-07-01] MEDS ORDERED: LEVALBUTEROL 1.25MG/0.5ML NEB INH PRN (21:30)
[2017-07-01 21:39] VITALS: PULSE 78; O2SAT 96
--- NOTE | 2017-07-01 22:04 | DIAGNOSTIC IMAGING REPORT ---
SINGLE VIEW CHEST CLINICAL HISTORY: Wheezing. FINDINGS: An AP, portable, upright chest radiograph is compared to chest x-ray and chest CT dated 06/30/2017. The examination is degraded by portable technique, large body habitus, and patient rotation. The heart is enlarged. The pulmonary vasculature is noncongested. There is mild elevation right hemidiaphragm and bibasilar atelectasis. The lungs and pleural spaces are otherwise clear. No pneumothorax is seen. The skeletal structures are osteopenic. The bony thorax is grossly intact. IMPRESSION: Mild cardiac enlargement with no acute cardiopulmonary abnormality. There has been no significant change from yesterday. Electronically signed by: Selvin Barroso M.D. 07/01/2017 10:03 PM Dictated Date/Time: 07/01/2017 10:02 PM
[2017-07-01 22:59] VITALS: BP 137/76; PULSE 78; TEMP 36.9; O2SAT 93
[2017-07-02] MEDS: LEVOTHYROXINE 88 MCG TAB PO SCH (05:37)
[2017-07-02] MEDS: CIPROFLOXACIN 500 MG TAB PO SCH ×2 (05:37→17:36)
[2017-07-02] MEDS: LEVOTHYROXINE 100 MCG TAB PO SCH (05:38)
[2017-07-02 07:14] VITALS: BP 102/67; PULSE 70; TEMP 36.8; O2SAT 94
[2017-07-02] MEDS: INSULIN ASPART 100 UNITS/ML 3 ML PEN SC SCH ×4 (07:44→20:53)
[2017-07-02] MEDS: LACTOBACILLUS ACIDOPHILUS (FLORANEX) TAB PO SCH ×3 (08:03→17:03)
[2017-07-02] MEDS: CITALOPRAM 40 MG TAB PO SCH (08:04)
[2017-07-02] MEDS: ASPIRIN 81 MG ECTAB PO SCH (08:04)
[2017-07-02] MEDS: GABAPENTIN 300 MG CAP PO SCH ×3 (08:04→20:41)
[2017-07-02] MEDS: PANTOprazole SOD 40 MG TAB PO SCH (08:05)
[2017-07-02] MEDS: CEROVITE ADV FORMULA TAB PO SCH (08:05)
[2017-07-02] MEDS ORDERED: INSULIN GLARGINE SOLOSTAR 100 UNITS/ML 3 ML PEN SC SCH ×2 (09:00)
[2017-07-02 10:05] LABS: ESTIMATED AVERAGE GLUCOSE 189 mg/dl; HA1C FLAG Normal (Normal)
[2017-07-02] MEDS ORDERED: SODIUM CHLORIDE 0.9% 1000ML 1,000 ML IV SCH (10:30)
--- NOTE | 2017-07-02 10:37 | Progress Note ---
Internal Med Progress Note Date of Service: Jul 02, 2017. Provider Documentation: SUBJECTIVE: complains of ongoing rt flank pain , mentions it is better than yesterday 5-03/20 , no nausea , no fever or chills pt mentions of having chronic back pain , not sure her rt flank pain is associated with that concerned about returning home too early when not feeling well still present at bedside OBJECTIVE: Vital Signs-as noted below Exam: General-obese, no sign of distress Eyes-sclera non icteric , PERRLA/EOMI ENT-NAD Neck-no thyromegaly Lungs-no rales or wheeze Heart-regular S1/S2 Abdomen-soft, non tender ; + rt CVA tenderness Extremities-no lower ext edema Neuro-AAO X , chronic motor weakness on lower ext due to Cerebral palsy Lab data as noted below. ASSESSMENT & PLAN: RT SIDED RENAL COLIC : presented with severe rt sided flank pain symptom has resolved CT abdomen /pelvis : 1. 2.5 mm right renal calculus 2. Mild right-sided hydroureteronephrosis. No ureteral calculi identified appreciate input form Urology -no urological intervention needed possible spontaneous passage of rt sided stone causing mild hydroureteronephrosis will order repeat renal USG tomorrow to assess improvement COMPLICATED UTI : due to ureteric stone /chronic urinary retention due to immobility /cerebral palsy no evidence of sepsis, no fever or chills, no normal WBC cont empiric Abx with Ciprofloxacin pt follows with Urology in [place] HTN : BP stable now cont out pt meds DEPRESSION : on Celexa TYPE 2 DM : hold Metformin for acute illness insulin SSI HYPOTHYROIDISM cont Levothyroxine DVT PROPHYLAXIS moderate to high risk due to inactivity ordered for Sub Q heparin DISPOSITION possible discharge home tomorrow if medically stable Lives at home with Medicine follow up with Dr Matute Vital Signs: Date Time Temp Pulse Resp B/P (MAP) Pulse Ox O2 Delivery O2 Flow Rate FiO2 07/02/17 08:00 Nasal Cannula 3.0 07/02/17 07:14 36.8 70 20 102/67 (79) 94 Nasal Cannula 3.0 07/02/17 00:00 Nasal Cannula 3.0 07/01/17 22:59 36.9 78 18 137/76 (96) 93 Nasal Cannula 3.0 07/01/17 21:39 78 16 96 Nasal Cannula 3.0 07/01/17 20:00 Nasal Cannula 3.0 07/01/17 16:00 Nasal Cannula 3.0 07/01/17 15:05 37.2 78 20 131/74 (93) 92 Nasal Cannula 3.0 Lab Results: Results Past 24 Hours Test 07/01/17 11:23 07/01/17 16:12 07/01/17 20:03 07/02/17 07:22 Range/Units Bedside Glucose 238 205 230 138 70-90 mg/dl Test 07/02/17 09:32 Range/Units Estimated Average Glucose 189 mg/dl Hemoglobin A1c 8.2 4.5-5.6 % Microbiology Results 07/01/17 Urine Culture, Received Pending
[2017-07-02 11:15] LABS: INR 1.1 (0.9-1.1); PROTHROMBIN TIME (PATIENT) 11.8 SECONDS (9.0-12.0)
[2017-07-02] MEDS: HEPARIN SOD 5000 UNIT/0.5 ML CARP SQ SCH ×2 (12:21→20:53)
[2017-07-02 14:34] VITALS: BP 158/79; PULSE 76; TEMP 37.1; O2SAT 93
[2017-07-02] MEDS ORDERED: NURSING DECISION MEDICATION ORDER SCH (15:30)
[2017-07-02] MEDS ORDERED: MICONAZOLE NITRATE POWDER 43 GM EXT PRN (16:30)
[2017-07-02] MEDS: HYDROCODONE/ACETAMI 10/325 TAB PO PRN (20:38)
[2017-07-02] MEDS: CYCLOBENZAPRINE HCL 10 MG TAB PO SCH (20:41)
[2017-07-02] MEDS: ATORVASTATIN 40 MG TAB PO SCH (20:42)
[2017-07-02] MEDS: TRAZODONE HCL 50 MG TAB PO SCH (20:42)
[2017-07-02 20:54] VITALS: BP 141/84; PULSE 78
[2017-07-02] MEDS ORDERED: INSULIN GLARGINE SOLOSTAR 100 UNITS/ML 3 ML PEN SC ONE (21:23)
[2017-07-02 23:04] VITALS: BP 120/77; PULSE 77; TEMP 36.7; O2SAT 94
[2017-07-03] MEDS: LEVOTHYROXINE 100 MCG TAB PO SCH (06:20)
[2017-07-03] MEDS: CIPROFLOXACIN 500 MG TAB PO SCH (06:20)
[2017-07-03] MEDS: LEVOTHYROXINE 88 MCG TAB PO SCH (06:20)
[2017-07-03] MEDS: INSULIN ASPART 100 UNITS/ML 3 ML PEN SC SCH (06:30)
[2017-07-03 07:33] VITALS: BP 133/81; PULSE 73; TEMP 36.6; O2SAT 98
[2017-07-03 08:00] VITALS: O2SAT 98
--- NOTE | 2017-07-03 08:20 | Progress Note ---
Subjective Date of Service: Jul 03, 2017. Subjective Pt evaluation today including: conversation w/ patient, chart review Voiding: incontinence 62 yo female with mild right hydro. Cline catheter has been removed. She reports urgency and incontinence which has been her baseline for quite some time. Denies dysuria or hematuria. UC&S noted to be negative. She reports her right flank pain has resolved. The pt states she is ready to go home today. Problem List Medical Problems: (1) Abdominal pain Status: Acute (2) Contusion of left hip Status: Acute (3) Contusion of left shoulder Status: Acute (4) Dehydration Status: Acute (5) Elevated troponin Status: Acute (6) Frequent falls Status: Acute (7) Hypoxia Status: Acute (8) Lactic acidosis Status: Acute (9) Left sided chest pain Status: Acute (10) UTI (urinary tract infection) Status: Acute (11) Weakness Status: Acute Review of Systems Constitutional: No fever, No chills Respiratory: No shortness of breath Cardiac: No chest pain Abdomen: No pain, No nausea, No vomiting Female : No hematuria Heme: No abnormal bleeding/bruising Objective Vital Signs Date Time Temp Pulse Resp B/P (MAP) Pulse Ox O2 Delivery O2 Flow Rate FiO2 07/03/17 07:33 36.6 73 20 133/81 (98) 98 Nasal Cannula 3.0 07/03/17 00:00 Nasal Cannula 3.0 07/02/17 23:04 36.7 77 18 120/77 (91) 94 Nasal Cannula 3.0 07/02/17 20:54 78 141/84 (103) 07/02/17 20:00 Nasal Cannula 3.0 07/02/17 16:00 Nasal Cannula 3.0 07/02/17 14:34 37.1 76 20 158/79 (105) 93 Nasal Cannula 3.0 Physical Exam General Appearance: no apparent distress, + obese Eyes: normal inspection ENT: hearing grossly normal Neck: no JVD Respiratory/Chest: no respiratory distress, no accessory muscle use, + pertinent finding (nasal cannula O2 in place) Cardiovascular: no JVD Extremities: normal inspection Neurologic/Psychiatric: alert, normal mood/affect, oriented x 3 Skin: normal color Laboratory Results Last 24 Hours Test 07/02/17 09:32 07/02/17 10:53 07/02/17 11:05 07/02/17 16:11 Estimated Average Glucose 189 mg/dl Hemoglobin A1c 8.2 % Prothrombin Time 11.8 SECONDS Prothromb Time International Ratio 1.1 Bedside Glucose 213 mg/dl 244 mg/dl Test 07/02/17 20:03 07/03/17 07:17 Bedside Glucose 301 mg/dl 158 mg/dl Assessment and Plan A/P: Mild right hydro AFVSS. ? passed stone Will repeat a renal u/s today to ensure hydro has improved. Sounds as though she has returned to her baseline LUTS. Consider a trial of an anticholinergic such as ditropan or detrol for urgency and incontinence. Pt ? has urology appt scheduled in [place], but is uncertain. She does feel [place] is closer for her to travel. Will arrange for outpatient f/u in 1- 2 weeks if she does not plan to f/u in [place]. Thanks for allowing us to participate in this pt's care. Recall PRN issues.
[2017-07-03] MEDS ORDERED: INSULIN GLARGINE SOLOSTAR 100 UNITS/ML 3 ML PEN SC SCH (09:00)
[2017-07-03] MEDS: HEPARIN SOD 5000 UNIT/0.5 ML CARP SQ SCH (09:24)
[2017-07-03] MEDS: LACTOBACILLUS ACIDOPHILUS (FLORANEX) TAB PO SCH (09:30)
[2017-07-03] MEDS: PANTOprazole SOD 40 MG TAB PO SCH (09:31)
[2017-07-03] MEDS: CITALOPRAM 40 MG TAB PO SCH (09:31)
[2017-07-03] MEDS: CEROVITE ADV FORMULA TAB PO SCH (09:31)
[2017-07-03] MEDS: GABAPENTIN 300 MG CAP PO SCH (09:31)
[2017-07-03] MEDS: ASPIRIN 81 MG ECTAB PO SCH (09:31)
[2017-07-03] MEDS: HYDROCODONE/ACETAMI 10/325 TAB PO PRN (09:38)
--- NOTE | 2017-07-03 09:45 | DIAGNOSTIC IMAGING REPORT ---
RENAL ULTRASOUND HISTORY: Follow-up right sided hydronephrosis. COMPARISON: Abdomen and pelvis CT 06/30/2017. FINDINGS: Right kidney: 11.8 cm. No hydronephrosis. Normal corticomedullary differentiation and cortical thickness. Left kidney: 12.5 cm. Not well visualized due to the patient's body habitus and overlying bowel gas. No hydronephrosis. Normal corticomedullary differentiation and cortical thickness. Bladder: No bladder wall thickening. The bilateral ureteral jets were identified. IMPRESSION: Normal renal ultrasound. No hydronephrosis. Electronically signed by: Cecil Matthew M.D. 07/03/2017 9:43 AM Dictated Date/Time: 07/03/2017 9:42 AM
[2017-07-03 11:12] VITALS: Ht 149.9 cm; Wt 152.0 kg
[2017-07-03 11:32] VITALS: BP 133/81; PULSE 73; TEMP 36.6; O2SAT 98
--- NOTE | 2017-07-03 17:56 | Progress Note ---
Internal Med Progress Note Date of Service: Jul 03, 2017. Provider Documentation: SUBJECTIVE: no complain of rt flank pain , no fever or chills denies of any discomfort feels well wants to be discharged home today OBJECTIVE: Vital Signs-as noted below Exam: General-obese, no sign of distress Eyes-sclera non icteric , PERRLA/EOMI ENT-NAD Neck-no thyromegaly Lungs-no rales or wheeze Heart-regular S1/S2 Abdomen-soft, non tender ; Extremities-no lower ext edema Neuro-AAO X , chronic motor weakness on lower ext due to Cerebral palsy Lab data as noted below. ASSESSMENT & PLAN: RT SIDED RENAL COLIC : symptom has resolved presented with severe rt sided flank pain symptom has resolved CT abdomen /pelvis : 1. 2.5 mm right renal calculus 2. Mild right-sided hydroureteronephrosis. 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 /cerebral palsy no evidence of sepsis, no fever or chills, no normal WBC cont empiric Abx with Ciprofloxacin pt will follow with [facility] in [place] HTN : BP stable cont out pt meds DEPRESSION : on Celexa TYPE 2 DM : resume Metformin on discharge insulin SSI HYPOTHYROIDISM cont Levothyroxine DVT PROPHYLAXIS moderate to high risk due to inactivity ordered for Sub Q heparin DISPOSITION discharge home today Lives at home with Medicine follow up with Dr Chan Urology follow up with Dr De La Fuente Vital Signs: Date Time Temp Pulse Resp B/P (MAP) Pulse Ox O2 Delivery O2 Flow Rate FiO2 07/03/17 11:32 36.6 73 20 98 Nasal Cannula 07/03/17 08:00 98 Nasal Cannula 3.0 07/03/17 07:33 36.6 73 20 133/81 (98) 98 Nasal Cannula 3.0 07/03/17 00:00 Nasal Cannula 3.0 07/02/17 23:04 36.7 77 18 120/77 (91) 94 Nasal Cannula 3.0 07/02/17 20:54 78 141/84 (103) 07/02/17 20:00 Nasal Cannula 3.0 Lab Results: Results Past 24 Hours Test 07/02/17 20:03 07/03/17 07:17 07/03/17 11:32 Range/Units Bedside Glucose 301 158 217 70-90 mg/dl
--- NOTE | 2017-07-03 17:58 | Discharge Summary ---
Discharge Summary Date of Service Jul 03, 2017. Discharge Summary Admission Date: Jul 01, 2017 at 01:42 Discharge Date: Jul 01, 2017 Discharge Disposition: Home Principal Diagnosis: KIDNEY STONE Procedures: CT ABDOMEN /PELVIS : IMPRESSION: 1. 2.5 mm right renal calculus 2. Mild right-sided hydroureteronephrosis. No ureteral calculi identified 3. Indwelling Cline catheter 4. No evidence of bowel obstruction. No evidence of free air 5. No evidence of acute appendicitis. No evidence of acute diverticulitis 6. Mildly distended gallbladder 7. Mild hepatosplenomegaly. Possible early hepatic cirrhosis. RENAL USG: IMPRESSION: Normal renal ultrasound. No hydronephrosis. Consultations: UROLOGY Medication Reconciliation New Medications: Ciprofloxacin (Ciprofloxacin HCl) 500 Mg Tab 1 TAB PO BID for 4 Days, #8 TABS Continued Medications: Albuterol Sulfate (Proair Respiclick) 108 Mcg/Act Aer 2 PUFFS INH PRN PRN for SOB/Wheezing Aspirin (Aspirin Ec) 81 Mg Tab 81 MG PO QAM Atenolol (Tenormin) 25 Mg Tab 25 MG PO HS, TAB Atorvastatin (Atorvastatin Calcium) 40 Mg Tab 40 MG PO HS Azelastine Hcl (Astelin Nasal [place]) 200 Sprays/30 Ml [place] 2 SPRAYS NA BID, BTL Benzonatate (Benzonatate) 100 Mg Cap 100 MG PO TID PRN for Cough, #30 Biotin (Biotin) 1 Mg Cap 1 CAP PO QAM Citalopram (Citalopram Hydrobromide) 40 Mg Tab 1 TAB PO QAM, TAB Cyclobenzaprine Hcl (Flexeril) 10 Mg Tab 10 MG PO HS, TAB Docusate Sodium (Colace) 100 Mg Cap 1 CAP PO TID PRN for Constipation, CAP Etodolac (Etodolac) 500 Mg Tab 1 TAB PO BID, TAB Fexofenadine Hcl (Danita) 180 Mg Tab 180 MG PO DAILY PRN for Allergies, TAB Furosemide (Lasix) 20 Mg Tab 20 MG PO BID PRN for Edema, TAB Gabapentin (Neurontin) 300 Mg Cap 300 MG PO UD, CAP Take 1 tab (300 mg) by mouth in morning and midday, then 2 tabs (600 mg) in PM. Hydrocodone/Acetaminophen 10MG/325MG ([place] 10MG/325MG) Tab 1 TAB PO BID PRN for Pain, TAB PRN PAIN Levothyroxine Sodium (Levothyroxine Sodium) 88 Mcg Tab 1 TAB PO DAILYBB TAKE WITH 100MCG TAB Levothyroxine Sodium (Levothyroxine Sodium) 100 Mcg Tab 1 TAB PO DAILYBB TAKE WITH 88MCG TAB Metformin Hcl (Glucophage) 1,000 Mg Tab 1000 MG PO BID, TAB Multiple Vitamins W/ Minerals (Centrum Silver Adult 50+) 1 Tab Tab 1 TAB PO QAM Nystatin (Nystatin Cream) 90 Appln/30 Gm Cr 0 EXT BID PRN for rash, #15 GM APPLY TO AFFECTED AREA BID Omeprazole (Prilosec) 20 Mg Capcr 20 MG PO QAM, CAP Potassium Chloride (Potassium Chloride Cr) 10 Meq Tab 1 TAB PO BID Trazodone Hcl (Trazodone) 50 Mg Tab 50 MG PO HS, TAB Referrals At Discharge Follow up Referrals: Urologist Referral - Within 1-2 Weeks with Tom Escobar D.O. Admission Information HPI (per Admitting provider): DATE OF ADMISSION: 07/01/2017 PRIMARY CARE DOCTOR: Jorge Matute MD CHIEF COMPLAINT: Right flank pain. HISTORY OF PRESENT ILLNESS: History obtained from patient and records. Medical history significant for hypertension, hyperlipidemia, fibromyalgia as per records, fatty liver disease, sleep apnea on CPAP, DM2 on oral meds. chronic thrombocytopenia. Recent confinement was August 2016 for atypical chest pain. Two days history of achy right flank pain going to her right lower belly with nausea. The patient also noted urinary frequency, burning. No vomiting, no fever, no chills. At the Emergency Room, the patient received ciprofloxacin for UTI. MEDICAL HISTORY: As above, SURGERIES: [place] tooth extraction, gynecologic procedures, section, Achilles tendon repair, dental surgery, hip surgery. HOME MEDICATIONS: Include benzonatate, Flexeril, citalopram, Colace, etodolac, Danita, Lasix, Neurontin, [place], levothyroxine, Glucophage, multivitamins, Prilosec, potassium chloride, trazodone, aspirin, Astelin, ProAir, atenolol, atorvastatin, biotin. ALLERGIES: ALLERGIC TO PENICILLIN. FAMILY HISTORY: Heart disease. PERSONAL SOCIAL HISTORY: Nonsmoker, no ETOH intake, retired [employer] employee. Physical Exam (per Admitting): REVIEW OF SYSTEMS: As per HPI, all other ROS negative. PHYSICAL EXAMINATION: VITAL SIGNS: Blood pressure noted to be 146/103, later 124/94, pulse rate 90, RR 18, temperature 36.8, sats 98% on room air. GENERAL: Noted to be obese, slightly uncomfortable, no respiratory distress. SKIN: Normal color, warm. HEENT: [place] palpebral conjunctivae, No ptosis. dry mucosa. NECK: Short, supple. CHEST: Decreased breath sounds, no anterior wall chest tenderness. CV: Regular rate and rhythm, palpable lower extremity pulses. ABDOMEN: Some distention, tenderness in the right lower quadrant. EXTREMITIES: LE Venous stasis. No tenderness. NEUROLOGIC: Coherent. No gross focality. Hospital Course RT SIDED RENAL COLIC : symptom has resolved presented with severe rt sided flank pain symptom has resolved CT abdomen /pelvis : 1. 2.5 mm right renal calculus 2. Mild right-sided hydroureteronephrosis. 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 /cerebral palsy no evidence of sepsis, no fever or chills, no normal WBC cont empiric Abx with Ciprofloxacin pt will follow with [facility] in [place] HTN : BP stable cont out pt meds DEPRESSION : on Celexa TYPE 2 DM : resume Metformin on discharge insulin SSI HYPOTHYROIDISM cont Levothyroxine DVT PROPHYLAXIS moderate to high risk due to inactivity ordered for Sub Q heparin DISPOSITION discharge home today Lives at home with Medicine follow up with Dr Chan Urology follow up with Dr King Total time spent on discharge = 40 MINS This includes examination of the patient, discharge planning, medication reconciliation, and communication with other providers. Discharge Instructions Discharge Instructions Date of Service Jul 01, 2017. Admission Reason for Admission: Complicated Uti Discharge Discharge Diagnosis / Problem: KIDNEY STONE Discharge Goals Goal(s): Improve function, Improve disease control, Diagnostic testing, Therapeutic intervention Activity Recommendations Activity Limitations: resume your previous activity . Instructions / Follow-Up Instructions / Follow-Up HOSPITAL FOLLOW UP 07/10/2017 11:20 AM Carter Chan MD [facility] UROLOGY FOLLOW UP WITH DR TOM KING IN 1-2 WEEKS , OFFICE WILL CALL FOR APPOINTMENT Current Hospital Diet Patient's current hospital diet: AHA Diet (Heart Healthy), Diabetes Type 2 Diet Discharge Diet Recommended Diet: AHA Diet (Heart Healthy), Diabetes Type 2 Diet Pending Studies Studies pending at discharge: no Medical Emergencies . Who to Call and When: Medical Emergencies: If at any time you feel your situation is an emergency, please call 911 immediately. . Non-Emergent Contact Non-Emergency issues call your: Primary Care Provider . . "Provider Documentation" section prepared by Ledy Ocasio. . VTE Core Measure Inpt VTE Proph given/why not?: Unfractionated heparin SQ Additional Copies To Carter Chan M.D.
[2017-07-12] MEDS ORDERED: BIOT1CAP8 PO (09:03)
[2017-07-12] MEDS ORDERED: CITA40TA4 PO (09:03)
[2017-07-12] MEDS ORDERED: DOCU-94 PO (09:04)
[2017-07-12] MEDS ORDERED: GABA-1218 PO (10:33)
[2017-07-12] MEDS ORDERED: LPT40 PO (17:20)
[2017-07-12] MEDS ORDERED: BENZ100C7 PO (17:45)
[2017-07-12] MEDS ORDERED: GABA1CAP4 PO (19:07)
[2017-07-12] MEDS ORDERED: IPRASOL4 INH (19:07)
[2017-07-12] MEDS ORDERED: HYDR-4079 PO (20:31)
[2017-07-12] MEDS ORDERED: ATEN-173 PO (20:31)
[2017-07-12] MEDS ORDERED: ALBU18002 INH (20:31)
[2017-07-12] MEDS ORDERED: LEVO100T7 PO (20:31)
[2017-07-12] MEDS ORDERED: LEVO88TA3 PO (20:31)
[2017-07-12] MEDS ORDERED: POTA10TA30 PO (20:31)
[2017-07-12] MEDS ORDERED: TRAZ50TA35 PO (22:25)
[2017-07-12] MEDS ORDERED: ETOD500T95 PO (22:25)
[2017-07-14] MEDS ORDERED: LXP10 PO (14:16)
== END 2017-07-03 12:15 | disposition home or self-care (01) | DRG 690 ==
LOC: C.EDB 18:05 → C.MED 07-01 01:42 → ENRESERV 07-01 01:55
PROVIDERS: ADMIT Internal Medicine; ATTEND Hospitalist
DX: N13.6 Pyonephrosis (principal); Z68.44 Body mass index [BMI] 60.0-69.9, adult; N39.0 Urinary tract infection, site not specified; R33.8 Other retention of urine; G80.9 Cerebral palsy, unspecified; D69.59 Other secondary thrombocytopenia; K82.8 Other specified diseases of gallbladder; I10 Essential (primary) hypertension; E11.9 Type 2 diabetes mellitus without complications; E03.9 Hypothyroidism, unspecified; J45.909 Unspecified asthma, uncomplicated; M79.7 Fibromyalgia; E78.5 Hyperlipidemia, unspecified; K75.81 Nonalcoholic steatohepatitis (NASH); K74.60 Unspecified cirrhosis of liver; G43.909 Migraine, unspecified, not intractable, without status migrainosus; F32.9 Major depressive disorder, single episode, unspecified; E66.01 Morbid (severe) obesity due to excess calories; Z51.81 Encounter for therapeutic drug level monitoring; Z79.899 Other long term (current) drug therapy; Z79.84 Long term (current) use of oral hypoglycemic drugs; Z79.82 Long term (current) use of aspirin; Z82.49 Family history of ischemic heart disease and other diseases of the circulatory system

== ENCOUNTER 2017-07-27 11:24 | Inpatient (IN) | payer BC, OTHER ==
[~2017-07-27] VITALS: Ht 149.9 cm; Wt 122.3 kg
[~2017-07-27 11:24] MED LIST changes: +ALBU18002 INH; -ALBU1AER9 INH; +ATEN-173 PO; +BENZ100C7 PO; +BIOT1CAP8 PO; +DOCU-94 PO; +GABA-1218 PO; +GABA1CAP4 PO; +HYDR-4079 PO; -HYDR-4383 PO; +IPRASOL4 INH; +LEVO100T7 PO; -LEVO175T3 PO; +LEVO88TA3 PO; +LPT40 PO; +LXP10 PO; -POTA-331 PO; +POTA10TA30 PO; -TNR25 PO; +TRAZ50TA35 PO; -VITAMIN D2 PO
[2017-07-27] MEDS ORDERED: LACTATED RINGER'S 1000ML 1,000 ML IV STA (12:14)
--- NOTE | 2017-07-27 12:15 | EMERGENCY ROOM VISIT NOTE ---
History Report prepared by Tarah: Jarett Lou Under the Supervision of: Dr. Liz Gallego D.O. First contact with patient: 12:01 Chief Complaint: ILLNESS Stated Complaint: POSS SEPSIS History of Present Illness The patient is a 62 year old female who presents to the Emergency Room from [facility] with complaints of a persistent illness for the past few days. She notes that she was told that she has positive outpatient blood cultures, and was started on an antibiotic 2 days ago for a possible urine infection. The patient states that she had 2 kidney stones recently, and only has passed one of them. She notes that she has been having intermittent right-sided flank pain recently, on the same side as her stones. The patient adds that she has been having intermittent headaches recently as well. She says that she has been feeling lousy, getting "hot and cold" starting 2 days ago. The patient notes that she has had her urine drawn, she was catheterized. She adds that she has not had any kidney stones before these 2 stones in the past, but she does have a history of bladder infections. She notes that she has had a lack of appetite recently. The patient denies any current nausea or vomiting, chest pain, shortness of breath, worsened leg swelling, or any pain. She also denies any new cough. Her blood culture results showed a decreased white blood cell count as well as decreased platelets. The patient is at [facility] for cerebral palsy and weakness. She adds that she had a bowel movement yesterday, but had to be given a pill to go. Review of paperwork coming the patient shows positive outpatient blood cultures 2 out of 2 bottles positive for gram-positive cocci. Patient with abnormal urinalysis, however no urine culture sent. Patient started on Levaquin on . Source of History: patient, family Onset: Past few days Position: other (global - illness) Quality: other (positive outpatient blood cultures) Timing: other (persistent) Associated Symptoms: + headache, No cough (any worsened), No chest pain, No SOB, No nausea, No vomiting Note: Associated symptoms: Intermittent right-sided flank pain. Lack or appetite. Feeling lousy. "Hot and cold". Denies worsened leg swelling. Review of Systems See HPI for pertinent positives & negatives. A total of 10 systems reviewed and were otherwise negative. Past Medical & Surgical Medical Problems: (1) Asthma (2) Bilateral lower extremity edema (3) Cerebral palsy (4) Chronic pain (5) DM type 2 (diabetes mellitus, type 2) (6) Dyslipidemia (7) Fibromyalgia (8) VIDA (generalized anxiety disorder) (9) History of migraine (10) Hypothyroidism (11) Major depressive disorder, recurrent, moderate (12) NG (nonalcoholic steatohepatitis) (13) Obesity, morbid (more than 100 lbs over ideal weight or BMI > 40) (14) Obstructive sleep apnea (15) Osteoarthritis (16) Venous insufficiency Surgical Problems: (1) H/O Achilles tendon repair (2) H/O section (3) H/O wisdom tooth extraction (4) History of D&C Family History FH: CAD (coronary artery disease) MOTHER ([place] in her 50s) Social History Smoking Status: Unknown if Ever Smoked Alcohol Use: none Marital Status: Housing Status: lives with family Occupation Status: disabled Current/Historical Medications Scheduled Aspirin (Aspirin Ec), 81 MG PO QAM Atenolol (Tenormin), 25 MG PO HS Atorvastatin (Atorvastatin Calcium), 40 MG PO HS Azelastine Hcl (Astelin Nasal [place]), 2 SPRAYS NA BID Biotin (Biotin), 1 CAP PO QAM Cyclobenzaprine Hcl (Flexeril), 10 MG PO HS Escitalopram Oxalate (Escitalopram Oxalate), 15 MG PO QAM Gabapentin (Neurontin), 300 MG PO BID Gabapentin (Gabapentin), 600 MG PO HS Levothyroxine Sodium (Levothyroxine Sodium), 1 TAB PO DAILYBB Levothyroxine Sodium (Levothyroxine Sodium), 1 TAB PO DAILYBB Metformin Hcl (Glucophage), 1,000 MG PO BID Multiple Vitamins W/ Minerals (Centrum Silver Adult 50+), 1 TAB PO QAM Omeprazole (Prilosec), 20 MG PO QAM Potassium Chloride (Potassium Chloride Cr), 1 TAB PO BID Trazodone Hcl (Trazodone), 50 MG PO HS Scheduled PRN Albuterol Sulfate (Proair Respiclick), 2 PUFFS INH PRN PRN for SOB/Wheezing Benzonatate (Benzonatate), 100 MG PO TID PRN for Cough Docusate Sodium (Colace), 1 CAP PO TID PRN for Constipation Fexofenadine Hcl (Danita), 180 MG PO DAILY PRN for Allergies Furosemide (Lasix), 20 MG PO BID PRN for Edema Hydrocodone/Acetaminophen 10MG/325MG ([place] 10MG/325MG), 1 TAB PO BID PRN for Pain Ipratropium-Albuterol (Duoneb), 1 TREATMENT INH QID PRN for SOB/Wheezing Nystatin (Nystatin Cream), 0 EXT BID PRN for rash Allergies Coded Allergies: Penicillins (Verified Allergy, Intermediate, HIVES, 07/27/17) Physical Exam Vital Signs Date Time Temp Pulse Resp B/P (MAP) Pulse Ox O2 Delivery O2 Flow Rate FiO2 07/27/17 14:23 78 18 124/82 95 Room Air 07/27/17 13:28 77 18 122/78 93 Room Air 07/27/17 11:36 37.1 78 18 139/80 94 Room Air Physical Exam GENERAL: Obese, edentulous, alert, well appearing, well nourished, no distress, non-toxic EYE EXAM: normal conjunctiva, PERRL and EOM's grossly intact OROPHARYNX: no exudate, no erythema, lips, buccal mucosa, and tongue normal and mucous membranes are moist NECK: supple, no nuchal rigidity, no adenopathy, non-tender LUNGS: Clear to auscultation. Normal chest wall mechanics HEART: no murmurs, S1 normal and S2 normal ABDOMEN: abdomen obese, soft, non-tender, normo-active bowel sounds, no masses, no rebound or guarding. BACK: Back is symmetrical on inspection and there is no deformity, no midline tenderness, no CVA tenderness. SKIN: no rashes and no bruising UPPER EXTREMITIES: upper extremities are grossly normal. LOWER EXTREMITIES: Right greater than left edema. Legs wrapped in YULI wraps. NEURO EXAM: Normal sensorium, cranial nerves II-XII grossly intact, normal speech, no gross weakness of arms, no gross weakness of legs. Medical Decision & Procedures ER Provider Diagnostic Interpretation: Radiology results have been interpreted by the radiologist and reviewed by me. CHEST ONE VIEW PORTABLE CLINICAL HISTORY: fever COMPARISON STUDY: 07/12/2017 FINDINGS: The heart is mildly enlarged. There is mild right hilar fullness finding which may be accentuated by the AP technique and patient's body habitus. There is no focal pulmonary consolidation. There is no failure. There are no pleural effusions.[ IMPRESSION: Mild cardiomegaly. No acute findings. Electronically signed by: Caesar Pedroza M.D. 07/27/2017 12:37 PM Dictated Date/Time: 07/27/2017 12:[address] SCAN OF THE ABDOMEN AND PELVIS WITHOUT IV CONTRAST CLINICAL HISTORY: Nephrolithiasis. Abnormal urinalysis. COMPARISON STUDY: Abdominal CT dated 07/13/2017. TECHNIQUE: CT scan of the abdomen and pelvis is performed from the lung bases to the proximal femora. Images are reviewed in the axial, sagittal, and coronal planes. IV contrast was not administered for this examination as per the referring clinician. A dose lowering technique was utilized adhering to the principles of ALARA. The examination is degraded by motion artifact. CT DOSE: 1441.63 mGy.cm FINDINGS: Lung bases: The heart is normal in size and without pericardial effusion. The coronary arteries are densely calcified. The lung bases are clear. There is a tiny hiatal hernia. Liver: The unenhanced liver is enlarged, measuring 20.3 cm in length. The liver is cirrhotic in morphology and heterogeneous in attenuation, with nodularity of the surface contour. There is no intrahepatic biliary ductal dilatation. Gallbladder: Small calcified gallstones are identified. There is no CT evidence of acute cholecystitis. Spleen: The spleen is enlarged, measuring 14.5 cm in length. Pancreas: The unenhanced pancreas is mildly atrophic and grossly unremarkable. Adrenal glands: Unremarkable. Kidneys: The unenhanced kidneys demonstrate cortical atrophy. There is mild right hydronephrosis, unchanged from 07/13/2017. Right-sided perinephric stranding is observed. No ureteral calculus is identified. There is a 3 mm nonobstructing calculus in the interpolar right kidney. No left renal calculi are identified. There is no evidence of contour deforming renal mass lesion. Abdominal vasculature: The abdominal aorta is normal in course and caliber noting mild atherosclerotic calcification. Bowel: There is mild to moderate sigmoid diverticulosis without CT evidence of acute diverticulitis. No bowel obstruction is seen. The appendix is well-visualized and normal. Peritoneum: There is no intraperitoneal free air or abdominal ascites. Lymphadenopathy: Calcification containing lymph nodes are identified in the right external iliac chain. Pelvic viscera: The bladder is largely decompressed around a Cline catheter. Foci of intraluminal gas are likely related to instrumentation. The uterus and adnexa are normal as visualized. Skeletal structures: The skeletal structures are osteopenic. Mild lumbosacral spondylosis is observed. No lytic or blastic lesions are seen. Chronic posterior matter deformity is noted in the left proximal femur. IMPRESSION: 1. There is mild right hydronephrosis, unchanged from 07/13/2017. Right-sided perinephric stranding persists. No obstructing kidney stone is identified in these findings are nonspecific. Correlate clinically and with urinalysis for evidence of pyelonephritis. 2. A nonobstructing right renal calculus is again noted. 3. Mild/moderate sigmoid diverticulosis without CT evidence of acute diverticulitis. 4. The liver is enlarged and cirrhotic in morphology. 5. Splenomegaly. 6. Cholelithiasis. 7. Additional findings as above. Electronically signed by: Selvin Barroso M.D. 07/27/2017 2:25 PM Dictated Date/Time: 07/27/2017 2:13 PM Laboratory Results 07/27/17 12:50 Red Blood Count 3.72, Mean Corpuscular Volume 98.1, Mean Corpuscular Hemoglobin 31.2, Mean Corpuscular Hemoglobin Concent 31.8, Mean Platelet Volume 12.6, Neutrophils (%) (Auto) 56.4, Lymphocytes (%) (Auto) 20.5, Monocytes (%) (Auto) 12.8, Eosinophils (%) (Auto) 9.3, Basophils (%) (Auto) 1.0, Neutrophils # (Auto ) 1.76, Lymphocytes # (Auto) 0.64, Monocytes # (Auto) 0.40, Eosinophils # (Auto ) 0.29, Basophils # (Auto) 0.03 07/27/17 12:50 Test 07/27/17 12:45 07/27/17 12:50 07/27/17 12:56 Urine Color DK YELLOW Urine Appearance CLEAR (CLEAR) Urine pH 5.5 (4.5-7.5) Urine Specific [place] 1.024 (1.000-1.030) Urine Protein NEG (NEG) Urine Glucose (UA) NEG (NEG) Urine Ketones NEG (NEG) Urine Occult Blood NEG (NEG) Urine Nitrite NEG (NEG) Urine Bilirubin NEG (NEG) Urine Urobilinogen NEG (NEG) Urine Leukocyte Esterase TRACE (NEG) Urine WBC (Auto) 1-5 /hpf (0-5) Urine RBC (Auto) 0-4 /hpf (0-4) Urine Hyaline Casts (Auto) 1-5 /lpf (0-5) Urine Epithelial Cells (Auto) >30 /lpf (0-5) Urine Bacteria (Auto) NEG (NEG) White Blood Count 3.12 K/uL (4.8-10.8) Red Blood Count 3.72 M/uL (4.2-5.4) Hemoglobin 11.6 g/dL (12.0-16.0) Hematocrit 36.5 % (37-47) Mean Corpuscular Volume 98.1 fL (80-100) Mean Corpuscular Hemoglobin 31.2 pg (25-34) Mean Corpuscular Hemoglobin Concent 31.8 g/dl (32-36) Platelet Count 85 K/uL (130-400) Mean Platelet Volume 12.6 fL (7.4-10.4) Neutrophils (%) (Auto) 56.4 % Lymphocytes (%) (Auto) 20.5 % Monocytes (%) (Auto) 12.8 % Eosinophils (%) (Auto) 9.3 % Basophils (%) (Auto) 1.0 % Neutrophils # (Auto) 1.76 K/uL (1.4-6.5) Lymphocytes # (Auto) 0.64 K/uL (1.2-3.4) Monocytes # (Auto) 0.40 K/uL (0.11-0.59) Eosinophils # (Auto) 0.29 K/uL (0-0.5) Basophils # (Auto) 0.03 K/uL (0-0.2) RDW Standard Deviation 53.2 fL (36.4-46.3) RDW Coefficient of Variation 14.9 % (11.5-14.5) Immature Granulocyte % (Auto) 0.0 % Immature Granulocyte # (Auto) 0.00 K/uL (0.00-0.02) Toxic Granulation 1+ Platelet Estimate DECREASED Prothrombin Time 11.9 SECONDS (9.0-12.0) Prothromb Time International Ratio 1.1 (0.9-1.1) Anion Gap 9.0 mmol/L (3-11) Est Creatinine Clear Calc Drug Dose 86.2 ml/min Estimated GFR () 91.6 Estimated GFR (Non- 79.0 BUN/Creatinine Ratio 20.8 (10-20) Calcium Level 9.0 mg/dl (8.5-10.1) Total Bilirubin 0.6 mg/dl (0.2-1) Aspartate Amino Transf (AST/SGOT) 46 U/L (15-37) Alanine Aminotransferase (ALT/SGPT) 35 U/L (12-78) Alkaline Phosphatase 117 U/L (45-117) Total Protein 7.5 gm/dl (6.4-8.2) Albumin 3.3 gm/dl (3.4-5.0) Globulin 4.2 gm/dl (2.5-4.0) Albumin/Globulin Ratio 0.8 (0.9-2) Thyroid Stimulating Hormone (TSH) 0.020 uIu/ml (0.300-4.500) Hepatitis C Antibody Screen NEG (NEG) Bedside Lactic Acid Venous 2.10 mmol/L (0.90-1.70) Laboratory results per my review. Medications Administered Medications (Trade) Dose Ordered Sig/Betsy Route Start Time Stop Time Status Last Admin Dose Admin Vancomycin HCl 1830 mg/Sodium Chloride 536.6 ml @ 200 mls/hr ONE STAT IV 07/27/17 12:35 07/27/17 15:15 DC 07/27/17 12:35 200 MLS/HR Metronidazole (Flagyl / Nss) 500 mg NOW STAT IV 07/27/17 12:37 07/27/17 12:39 DC 07/27/17 12:37 500 MG Cefepime HCl 1000 mg/Syringe 11 ml @ 5.5 mls/min 1237 IV 07/27/17 12:37 07/27/17 15:00 DC 07/27/17 12:37 5.5 MLS/MIN Sodium Chloride 1,000 ml @ 999 mls/hr Q1H1M STAT IV 07/27/17 13:18 07/27/17 14:18 DC 07/27/17 13:18 999 MLS/HR ECG Indication: other (sepsis) Rate (beats per minute): 77 Rhythm: normal sinus Findings: no acute ischemic change, no ectopy, other (low voltage, normal axis , normal intervals) ED Course 1202: The patient was evaluated in room B12B. A complete history and physical exam was performed. 1235: Ordered Vancomycin HCl 1830 mg/Sodium Chloride 536.ml @ 200 mls/hr IV. 1237: Ordered Cefepime HCl 1000 mg/Syringe 11 ml @ 5.5 mls/min IV, Flagyl / Nss 500 mg IV. 1240: Review of EMR done: Patient on July [address] scan done, which revealed a 2.5 right renal calculus. 1318: Ordered NSS 1000 ml @ 999 mls/hr IV. 1440: Upon reevaluation, the patient is resting. I discussed the findings and the treatment plan with the patient. She expresses agreement and understanding. She will be evaluated for further management. 1445: I reviewed the patient's case with Dr. Milton Fletcher equipment service associate. She will evaluate the patient for further management. Medical Decision Differential diagnosis: Etiologies such as viral syndrome, otitis, pharyngitis, pneumonia, influenza, meningitis, urinary tract infection, sepsis, bacteremia, as well as others were entertained. Patient with recent 2.5 mm kidney stone found on CT on 07/13. Patiently currently in a rehabilitation facility. Patient was started on Levaquin 2 days ago following fever to 103 per group home records, blood cultures sent which were positive, however no urine culture sent. Other labs reassuring despite chronic anemia, thrombocytopenia, and mild leukopenia. No evidence of acute kidney injury. Pt hemodynamically stable. Pt aware of all results. Patient covered with additional antibiotics as a precaution given blood cultures. No evidence of recurrent stone or worsening height or hydro on CAT scan. Doubt additional GI pathology or infection, doubt additional pulmonary infection. Medication Reconcilliation Current Medication List: was personally reviewed by me Blood Pressure Screening Patient's blood pressure: Normal blood pressure Consults Time Called: 1440 Consulting Physician: Dr. Milton Fletcher equipment service associate Returned Call: [phone] I reviewed the patient's case with Dr. Milton Fletcher equipment service associate. She will evaluate the patient for further management. Impression Primary Impression: Bacteremia Additional Impressions: UTI (urinary tract infection) Cerebral palsy Obesity, morbid (more than 100 lbs over ideal weight or BMI > 40) Anemia Thrombocytopenia Scribe Attestation The scribe's documentation has been prepared under my direction and personally reviewed by me in its entirety. I confirm that the note above accurately reflects all work, treatment, procedures, and medical decision making performed by me. Departure Information Dispostion Being Evaluated By Hospitalist Referrals Nancy Matute M.D. (MEDICAL) (PCP) Patient Instructions My [facility] Problem Qualifiers Additional Impressions: UTI (urinary tract infection) Urinary tract infection type: acute cystitis Hematuria presence: with hematuria Qualified Codes: N30.01 - Acute cystitis with hematuria Cerebral palsy Cerebral palsy type: unspecified type Qualified Codes: G80.9 - Cerebral palsy, unspecified Anemia Anemia type: unspecified type Qualified Codes: D64.9 - Anemia, unspecified
[2017-07-27] MEDS ORDERED: VANCOMYCIN IV STA (12:35)
[2017-07-27] MEDS ORDERED: SODIUM CHLORIDE 0.9% IV STA (12:35)
[2017-07-27] MEDS ORDERED: CEFEPIME IV 1,000 MG in DEXTROSE 5% 100ML 100 ML IV STA (12:37)
[2017-07-27] MEDS ORDERED: CEFEPIME IV 1,000 MG in SYRINGE 0 ML IV SCH (12:37)
[2017-07-27] MEDS ORDERED: METRONIDAZOLE 500MG / 100ML NSS IV STA (12:37)
--- NOTE | 2017-07-27 12:39 | DIAGNOSTIC IMAGING REPORT ---
CHEST ONE VIEW PORTABLE CLINICAL HISTORY: fever COMPARISON STUDY: 07/12/2017 FINDINGS: The heart is mildly enlarged. There is mild right hilar fullness finding which may be accentuated by the AP technique and patient's body habitus. There is no focal pulmonary consolidation. There is no failure. There are no pleural effusions.[ IMPRESSION: Mild cardiomegaly. No acute findings. Electronically signed by: Caesar Pedroza M.D. 07/27/2017 12:37 PM Dictated Date/Time: 07/27/2017 12:36 PM
[2017-07-27 13:01] LABS: URINE APPEARANCE CLEAR (CLEAR); URINE BILIRUBIN NEG (NEG); URINE COLOR DK YELLOW; URINE EPITHELIAL CELL AUTO >30 /lpf (0-5); URINE NITRITE NEG (NEG); URINE PH 5.5 (4.5-7.5); URINE SPECIFIC GRAVITY 1.024 (1.000-1.030); UROBILINOGEN NEG (NEG)
[2017-07-27 13:02] LABS: MANUAL MICROSCOPIC REQUIRED? NO; REVIEW REQ? NO
[2017-07-27] MEDS ORDERED: SODIUM CHLORIDE 0.9% 1000ML 1,000 ML IV STA (13:18)
[2017-07-27 13:22] LABS: INR 1.1 (0.9-1.1); PROTHROMBIN TIME (PATIENT) 11.9 SECONDS (9.0-12.0)
[2017-07-27 13:36] LABS: BUN/CREATININE RATIO 20.8 (10-20); CREATININE 0.8 mg/dl (0.60-1.20); POTASSIUM 4.3 mmol/L (3.5-5.1)
[2017-07-27 13:38] LABS: ALB/GLOB RATIO 0.8 (0.9-2)
[2017-07-27 13:56] LABS: HEMATOCRIT 36.5 % (37-47); MEAN CELL VOLUME 98.1 fL (80-100); MEAN CORPUSCULAR HEMOGLOBIN 31.2 pg (25-34); MEAN CORPUSCULAR HGB CONC 31.8 g/dl (32-36); MEAN PLATELET VOLUME 12.6 fL (7.4-10.4); PLATELET COUNT 85 K/uL (130-400); RED BLOOD COUNT 3.72 M/uL (4.2-5.4); WHITE BLOOD COUNT 3.12 K/uL (4.8-10.8)
[2017-07-27 13:59] LABS: BASO ABS # 0.03 K/uL (0-0.2); COMPLETE YES; EOS % 9.3 %; LYMPH % 20.5 %; LYMPH ABS # 0.64 K/uL (1.2-3.4); MONO % 12.8 %; NEUT % 56.4 %; PLT ESTIMATE DECREASED; TOXIC GRANULATION 1+
--- NOTE | 2017-07-27 14:26 | DIAGNOSTIC IMAGING REPORT ---
CT SCAN OF THE ABDOMEN AND PELVIS WITHOUT IV CONTRAST CLINICAL HISTORY: Nephrolithiasis. Abnormal urinalysis. COMPARISON STUDY: Abdominal CT dated 07/13/2017. TECHNIQUE: CT scan of the abdomen and pelvis is performed from the lung bases to the proximal femora. Images are reviewed in the axial, sagittal, and coronal planes. IV contrast was not administered for this examination as per the referring clinician. A dose lowering technique was utilized adhering to the principles of ALARA. The examination is degraded by motion artifact. CT DOSE: 1441.63 mGy.cm FINDINGS: Lung bases: The heart is normal in size and without pericardial effusion. The coronary arteries are densely calcified. The lung bases are clear. There is a tiny hiatal hernia. Liver: The unenhanced liver is enlarged, measuring 20.3 cm in length. The liver is cirrhotic in morphology and heterogeneous in attenuation, with nodularity of the surface contour. There is no intrahepatic biliary ductal dilatation. Gallbladder: Small calcified gallstones are identified. There is no CT evidence of acute cholecystitis. Spleen: The spleen is enlarged, measuring 14.5 cm in length. Pancreas: The unenhanced pancreas is mildly atrophic and grossly unremarkable. Adrenal glands: Unremarkable. Kidneys: The unenhanced kidneys demonstrate cortical atrophy. There is mild right hydronephrosis, unchanged from 07/13/2017. Right-sided perinephric stranding is observed. No ureteral calculus is identified. There is a 3 mm nonobstructing calculus in the interpolar right kidney. No left renal calculi are identified. There is no evidence of contour deforming renal mass lesion. Abdominal vasculature: The abdominal aorta is normal in course and caliber noting mild atherosclerotic calcification. Bowel: There is mild to moderate sigmoid diverticulosis without CT evidence of acute diverticulitis. No bowel obstruction is seen. The appendix is well-visualized and normal. Peritoneum: There is no intraperitoneal free air or abdominal ascites. Lymphadenopathy: Calcification containing lymph nodes are identified in the right external iliac chain. Pelvic viscera: The bladder is largely decompressed around a Cline catheter. Foci of intraluminal gas are likely related to instrumentation. The uterus and adnexa are normal as visualized. Skeletal structures: The skeletal structures are osteopenic. Mild lumbosacral spondylosis is observed. No lytic or blastic lesions are seen. Chronic posterior matter deformity is noted in the left proximal femur. IMPRESSION: 1. There is mild right hydronephrosis, unchanged from 07/13/2017. Right-sided perinephric stranding persists. No obstructing kidney stone is identified in these findings are nonspecific. Correlate clinically and with urinalysis for evidence of pyelonephritis. 2. A nonobstructing right renal calculus is again noted. 3. Mild/moderate sigmoid diverticulosis without CT evidence of acute diverticulitis. 4. The liver is enlarged and cirrhotic in morphology. 5. Splenomegaly. 6. Cholelithiasis. 7. Additional findings as above. Electronically signed by: Selvin Barroso M.D. 07/27/2017 2:25 PM Dictated Date/Time: 07/27/2017 2:13 PM
[2017-07-27] MEDS ORDERED: FUROSEMIDE 20 MG TAB PO PRN (15:45)
[2017-07-27] MEDS ORDERED: DOCUSATE SODIUM 100 MG CAP PO PRN (15:45)
[2017-07-27] MEDS ORDERED: ALBUTEROL HFA 8 GM INHALER INH PRN (15:45)
[2017-07-27] MEDS: ALBUT/IPRATROP 3MG/0.5MG NEB 3 ML VIAL INH SCH ×2 (16:00→18:48)
--- NOTE | 2017-07-27 16:27 | History and Physical ---
History & Physical Date & Time of Service: Jul 27, 2017 at 16:02 Chief Complaint: Poss Sepsis Primary Care Physician: Nancy Matute M.D. (MEDICAL) History of Present Illness Source: patient This is a 62 year old F with history of cerebral palsy who resides at [facility] with October hospital admission for right sided flank pain / right renal calculus/ mild right-sided hydroureteronephrosis for which patient was treated empirically with ciprofloxacin and patient was then discharged with follow up to [facility]. Patient last seen [facility] Dr. Escobar on 07/19/2017. As per ER physician, patient is back from [facility] because of positive cultures and also with fever 2 days ago at [facility] which was reportedly to be 103 F and that patient has been on Levquin the past 2 days. On presentation to the ED, patient is afebrile. She has baseline minimal mobility and chronic lower extremity swelling in leg dressings. Reports pain with urination but no acute abdominal pain. Patient also has a nova in the ED. She denies having a nova at [facility]. In the ED patient was given empirically vancomycin, cefepime, and flagyl. Patient also reports allergies to penicillin specifically which leads to rash. CT abdomen in the ED again showing mild right hydronephrosis and no obstructing calculi. Because of the history of cerebral palsy, patient is minimally ambulatory and leg strength weaker than upper extremity strength Past Medical/Surgical History Medical Problems: (1) Asthma Status: Chronic (2) Bilateral lower extremity edema Status: Chronic (3) Cerebral palsy Status: Chronic (4) Chronic pain Status: Chronic (5) DM type 2 (diabetes mellitus, type 2) Status: Chronic (6) Dyslipidemia Status: Chronic (7) Fibromyalgia Status: Chronic (8) History of migraine Status: Chronic (9) Hypothyroidism Status: Chronic (10) NG (nonalcoholic steatohepatitis) Status: Chronic (11) Obesity, morbid (more than 100 lbs over ideal weight or BMI > 40) Status: Chronic (12) Obstructive sleep apnea Status: Chronic (13) Osteoarthritis Status: Chronic (14) Venous insufficiency Status: Chronic Surgical Problems: (1) H/O Achilles tendon repair Status: Chronic (2) H/O section Status: Chronic (3) H/O wisdom tooth extraction Status: Chronic (4) History of D&C Status: Chronic Family History FH: CAD (coronary artery disease) MOTHER (MD in her 50s) Social History Smoking Status: Unknown if Ever Smoked Marital Status: Housing status: lives with family Occupational Status: disabled Immunizations History of Influenza Vaccine: Yes Influenza Vaccine Date: Jul 10, 2017 History of Tetanus Vaccine?: Yes Tetanus Immunization Date: May 01, 2017 History of Pneumococcal: Yes Pneumococcal Date: Jun 01, 2010 Allergies Coded Allergies: Penicillins (Verified Allergy, Intermediate, HIVES, 07/27/17) Home Medications Scheduled Aspirin (Aspirin Ec), 81 MG PO QAM Atenolol (Tenormin), 25 MG PO HS Atorvastatin (Atorvastatin Calcium), 40 MG PO HS Azelastine Hcl (Astelin Nasal [place]), 2 SPRAYS NA BID Biotin (Biotin), 1 CAP PO QAM Cyclobenzaprine Hcl (Flexeril), 10 MG PO HS Escitalopram Oxalate (Escitalopram Oxalate), 15 MG PO QAM Gabapentin (Neurontin), 300 MG PO BID Gabapentin (Gabapentin), 600 MG PO HS Levothyroxine Sodium (Levothyroxine Sodium), 1 TAB PO DAILYBB Levothyroxine Sodium (Levothyroxine Sodium), 1 TAB PO DAILYBB Metformin Hcl (Glucophage), 1,000 MG PO BID Multiple Vitamins W/ Minerals (Centrum Silver Adult 50+), 1 TAB PO QAM Omeprazole (Prilosec), 20 MG PO QAM Potassium Chloride (Potassium Chloride Cr), 1 TAB PO BID Trazodone Hcl (Trazodone), 50 MG PO HS Scheduled PRN Albuterol Sulfate (Proair Respiclick), 2 PUFFS INH PRN PRN for SOB/Wheezing Benzonatate (Benzonatate), 100 MG PO TID PRN for Cough Docusate Sodium (Colace), 1 CAP PO TID PRN for Constipation Fexofenadine Hcl (Danita), 180 MG PO DAILY PRN for Allergies Furosemide (Lasix), 20 MG PO BID PRN for Edema Hydrocodone/Acetaminophen 10MG/325MG ([place] 10MG/325MG), 1 TAB PO BID PRN for Pain Ipratropium-Albuterol (Duoneb), 1 TREATMENT INH QID PRN for SOB/Wheezing Nystatin (Nystatin Cream), 0 EXT BID PRN for rash Review of Systems Constitutional: + fever Eyes: No worsening of vision ENT: No hearing loss, No trouble swallowing Respiratory: No cough, No sputum, No shortness of breath Cardiovascular: + edema, No chest pain Abdomen: No pain, No nausea, No vomiting, No diarrhea, No constipation Musculoskeletal: + swelling Genitourinary - Female: + dysuria Neurologic: No numbness/tingling Psychiatric: No substance abuse Endocrine: No fatigue Integumentary: No rash, No itch Physical Exam Vital Signs Date Time Temp Pulse Resp B/P (MAP) Pulse Ox O2 Delivery O2 Flow Rate FiO2 07/27/17 15:57 75 20 126/71 94 Room Air 07/27/17 14:23 78 18 124/82 95 Room Air 07/27/17 13:28 77 18 122/78 93 Room Air 07/27/17 11:36 37.1 78 18 139/80 94 Room Air General Appearance: WD/WN, no apparent distress Head: normocephalic, atraumatic Eyes: normal inspection, EOMI, sclerae normal ENT: normal ENT inspection, hearing grossly normal, TMs normal, pharynx normal Neck: no JVD, trachea midline Respiratory/Chest: chest non-tender, lungs clear, normal breath sounds, no respiratory distress, no accessory muscle use, + wheezing (mild expiratory wheeze) Cardiovascular: regular rate, rhythm, no JVD Abdomen/GI: normal bowel sounds, non tender, soft Genitourinary - Female: + pertinent finding (nova) Back: normal inspection, no muscle spasm Extremities/Musculoskelatal: no calf tenderness, + swelling (swelling of bilateral lower extremities in dressings) Neurologic/Psych: alert, normal mood/affect, oriented x 3, + pertinent finding (patient has difficulty with raising legs above the bed) Skin: normal color, warm/dry, no rash Diagnostics Laboratory Results Results Past 24 Hours Test 07/27/17 12:45 07/27/17 12:50 07/27/17 12:56 Range/Units Urine Color DK YELLOW Urine Appearance CLEAR CLEAR Urine pH 5.5 4.5-7.5 Urine Specific [place] 1.024 1.000-1.030 Urine Protein NEG NEG Urine Glucose (UA) NEG NEG Urine Ketones NEG NEG Urine Occult Blood NEG NEG Urine Nitrite NEG NEG Urine Bilirubin NEG NEG Urine Urobilinogen NEG NEG Urine Leukocyte Esterase TRACE NEG Urine WBC (Auto) 1-5 0-5 /hpf Urine RBC (Auto) 0-4 0-4 /hpf Urine Hyaline Casts (Auto) 1-5 0-5 /lpf Urine Epithelial Cells (Auto) >30 0-5 /lpf Urine Bacteria (Auto) NEG NEG White Blood Count 3.12 4.8-10.8 K/uL Red Blood Count 3.72 4.2-5.4 M/uL Hemoglobin 11.6 12.0-16.0 g/dL Hematocrit 36.5 37-47 % Mean Corpuscular Volume 98.1 80-100 fL Mean Corpuscular Hemoglobin 31.2 25-34 pg Mean Corpuscular Hemoglobin Concent 31.8 32-36 g/dl Platelet Count 85 130-400 K/uL Mean Platelet Volume 12.6 7.4-10.4 fL Neutrophils (%) (Auto) 56.4 % Lymphocytes (%) (Auto) 20.5 % Monocytes (%) (Auto) 12.8 % Eosinophils (%) (Auto) 9.3 % Basophils (%) (Auto) 1.0 % Neutrophils # (Auto) 1.76 1.4-6.5 K/uL Lymphocytes # (Auto) 0.64 1.2-3.4 K/uL Monocytes # (Auto) 0.40 0.11-0.59 K/uL Eosinophils # (Auto) 0.29 0-0.5 K/uL Basophils # (Auto) 0.03 0-0.2 K/uL RDW Standard Deviation 53.2 36.4-46.3 fL RDW Coefficient of Variation 14.9 11.5-14.5 % Immature Granulocyte % (Auto) 0.0 % Immature Granulocyte # (Auto) 0.00 0.00-0.02 K/uL Toxic Granulation 1+ Platelet Estimate DECREASED Prothrombin Time 11.9 9.0-12.0 SECONDS Prothromb Time International Ratio 1.1 0.9-1.1 Sodium Level 142 136-145 mmol/L Potassium Level 4.3 3.5-5.1 mmol/L Chloride Level 108 98-107 mmol/L Carbon Dioxide Level 25 21-32 mmol/L Anion Gap 9.0 3-11 mmol/L Blood Urea Nitrogen 17 7-18 mg/dl Creatinine 0.80 0.60-1.20 mg/dl Est Creatinine Clear Calc Drug Dose 86.2 ml/min Estimated GFR () 91.6 Estimated GFR (Non- 79.0 BUN/Creatinine Ratio 20.8 10-20 Random Glucose 144 70-99 mg/dl Calcium Level 9.0 8.5-10.1 mg/dl Total Bilirubin 0.6 0.2-1 mg/dl Aspartate Amino Transf (AST/SGOT) 46 15-37 U/L Alanine Aminotransferase (ALT/SGPT) 35 12-78 U/L Alkaline Phosphatase 117 45-117 U/L Total Protein 7.5 6.4-8.2 gm/dl Albumin 3.3 3.4-5.0 gm/dl Globulin 4.2 2.5-4.0 gm/dl Albumin/Globulin Ratio 0.8 0.9-2 Bedside Lactic Acid Venous 2.10 0.90-1.70 mmol/L Microbiology Results 07/27/17 Blood Culture, Received Pending 07/27/17 Blood Culture, Received Pending Diagnostic Radiology CXR: MPRESSION: Mild cardiomegaly. No acute findings CT abdomen: 1. There is mild right hydronephrosis, unchanged from 07/13/2017. Right-sided perinephric stranding persists. No obstructing kidney stone is identified in these findings are nonspecific. Correlate clinically and with urinalysis for evidence of pyelonephritis. 2. A nonobstructing right renal calculus is again noted. 3. Mild/moderate sigmoid diverticulosis without CT evidence of acute diverticulitis. 4. The liver is enlarged and cirrhotic in morphology. 5. Splenomegaly. Impression Assessment and Plan This is a 62 year old F with history of cerebral palsy who resides at [facility] with October hospital admission for right sided flank pain / right renal calculus/ mild right-sided hydroureteronephrosis for which patient was treated empirically with ciprofloxacin and patient was then discharged with follow up to [facility]. Patient last seen [facility] Dr. Escobar on 07/19/2017. As per ER physician, patient is back from [facility] because of positive cultures and also with fever 2 days ago at [facility] which was reportedly to be 103 F and that patient has been on Levquin the past 2 days. On presentation to the ED, patient is afebrile. She has baseline minimal mobility and chronic lower extremity swelling in leg dressings. Reports pain with urination but no acute abdominal pain. Patient also has a nova in the ED. She denies having a nova at [facility]. In the ED patient was given empirically vancomycin, cefepime, and flagyl. Patient also reports allergies to penicillin specifically which leads to rash. CT abdomen in the ED again showing mild right hydronephrosis and no obstructing calculi. Because of the history of cerebral palsy, patient is minimally ambulatory and leg strength weaker than upper extremity strength UTI history -In the ED patient was given empirically vancomycin, cefepime, and flagyl -will continue cefepime 2 gram IV q12 hours for now -obtain [facility] outpatient lab records -UA on ED presentation negative for bacteria -follow up blood cultures sent by ED -patient has nova in the ED, patient prefers to keep nova because of minimal ambulation due to cerebral palsy history -request [facility] consult as inpatient Cerebral palsy -minimally ambulatory and leg strength weaker than upper extremity strength Lower extremity swelling -chronic as per patient, encourage leg elevation, wound care for dressings -Lasix 20 mg for leg swelling Cardiovascular -continue home dosed aspirin and atenolol and atorvastatin Hypothyroidism -continue home dose Levothyroxine 188 mcg daily -check TSH Asthma -nebulizer/inhaler treatments as needed Mood disorder -continue home dose escitalopram and trazodone Musculoskeletal -no acute musculoskeletal pain, hold home meds for now of [place], Neurontin, Flexeril DVT ppx: lovenox 40 mg subq Full Code Status Level of Care Med/Surg Resuscitation Status FULL RESUSCITATION VTE Prophylaxis VTE Risk Assessment Done? Y/N: Yes Risk Level: Moderate
[2017-07-27 17:00] VITALS: BP 142/67; PULSE 78; TEMP 36.9; O2SAT 93; BMI 54.5
[2017-07-27 17:01] VITALS: BP 142/67; PULSE 78; TEMP 36.9; O2SAT 93
[2017-07-27 18:48] VITALS: PULSE 62; O2SAT 93
[2017-07-27 19:10] VITALS: O2SAT 93
[2017-07-27] MEDS: TRAZODONE HCL 50 MG TAB PO SCH (20:36)
[2017-07-27] MEDS: POTASSIUM CHLORIDE 10 MEQ TABCR PO SCH (20:37)
[2017-07-27] MEDS: ATORVASTATIN 40 MG TAB PO SCH (20:37)
[2017-07-27] MEDS: METFORMIN HCL 500 MG TAB PO SCH (20:37)
--- NOTE | 2017-07-27 20:42 | GENITOURINARY CONSULTATION ---
DATE OF CONSULTATION: 07/27/2017 REASON FOR CONSULT: History of questionable right hydronephrosis with a 3 mm nonobstructing stone and intermittent pain, fever 2 days ago, somewhat elevated lactic acid and low white blood cell count. HISTORY OF PRESENT ILLNESS: The patient is a 62-year-old female who is somewhat of a difficult historian who says that she has had pain in her right side off and on prior to her admission on 06/30/2017. She came in and had a CAT scan at that time which showed the same stone on the right side. There were no ureteral stones identified. She had a mildly distended gallbladder with some hepatomegaly and mild right hydronephrosis. Subsequently, she was given antibiotics. Her urine culture grew out Rachelle, this was a catheterized culture. She began to feel better. She had a renal sonogram that showed no hydro on the right side on the and also showed bilateral ureteral jets. She was discharged to [facility] because of weakness. She has a history of cerebral palsy and some weakness. She returned in between this with chest pain but now 2 nights ago reportedly had a fever of 103 and she actually did not feel well and was transferred back here. She said that she had some pain again in her right side, but it was not as severe and she also had pain in her general stomach area and again it is difficult to pin down exactly severity and location of her pain. She came back to the Emergency Room today, had a cath urine that has showed a trace leukocyte esterase but greater than 30 epithelial cells and 1-5 white cells, 0-4 red cells and no bacteria. The patient does have a low white blood cell count and a somewhat high lactic acid. She has been admitted and placed on IV antibiotics because of the reported temperature of 103 two nights ago. There is some concerns that she could have some form of sepsis as well as because of lactic acid. Currently, she denies having any significant pain. She says she feels better now and felt better today than she did several days ago. The patient currently is eating and does not have a fever. Vital signs are stable. There is no tachycardia, blood pressure is normal and she does have a normal creatinine. She has seen Dr. Escobar in the interim who has ordered a CAT scan with contrast, which is pending. Suggest that we consider getting this while she is here. REVIEW OF SYSTEMS: Please refer to the history and physical to review her review of systems from today. PHYSICAL EXAMINATION: GENERAL: The patient looks alert and responsive. She does not appear to be in any distress. HEENT: Unremarkable. ABDOMEN: I did examine her abdomen and there is some slight tenderness to the right upper quadrant. There is no flank pain on the right to percussion. She said that she has had pain in her right flank previously but not currently. GENITOURINARY: Deferred. She has a Cline catheter in place. CT scan was reviewed. There does appear to be slight hydro and there is a nonobstructing right renal stone, no ureteral stone is seen. There is some mild stranding around the right kidney and she does have some diverticulosis without acute diverticulitis identified. She has a large liver edge, does have some gallstones. She did note at one point that she did have some loss of appetite and there is some pain in the right upper quadrant which could may mean that there is some possibility of gallstones being the primary problem. I would agree with getting a CT scan with contrast and an immediate KUB after this in the morning to rule out any obvious renal pathology. The patient's creatinine is normal. There is no evidence of any problem with iodine allergy. No obvious urologic intervention seems necessary at this time. We will continue to follow along with the service after the CAT scan for further recommendations.
[2017-07-27] MEDS ORDERED: POTASSIUM CHLORIDE 10 MEQ TABCR PO SCH (21:00)
[2017-07-27] MEDS ORDERED: CEFEPIME IV 2,000 MG in DEXTROSE 5% 100ML 100 ML IV SCH (21:00)
[2017-07-27 21:43] VITALS: BP 113/68; PULSE 83; TEMP 37; O2SAT 94
[2017-07-27] MEDS: CEFEPIME IV 2,000 MG in SYRINGE 7.5 ML IV SCH (23:29)
[2017-07-27 23:55] VITALS: BP 126/78; PULSE 77; TEMP 37.3; O2SAT 94
[2017-07-28] VITALS (9 sets, daily range): BP systolic 95–120; BP diastolic 60–75; PULSE 76–87; TEMP 36.8–37.1; O2SAT 92–95
[2017-07-28] MEDS: LEVOTHYROXINE 100 MCG TAB PO SCH (06:11)
[2017-07-28] MEDS: LEVOTHYROXINE 88 MCG TAB PO SCH (06:11)
[2017-07-28] MEDS: ALBUT/IPRATROP 3MG/0.5MG NEB 3 ML VIAL INH SCH ×4 (07:10→18:56)
[2017-07-28 07:19] LABS: BASO % 0.9 %; BASO ABS # 0.03 K/uL (0-0.2); EOS % 10.3 %; HEMATOCRIT 33.3 % (37-47); LYMPH ABS # 0.86 K/uL (1.2-3.4); MEAN CELL VOLUME 98.2 fL (80-100); MEAN CORPUSCULAR HGB CONC 31.5 g/dl (32-36); NEUT % 49.8 %; RED BLOOD COUNT 3.39 M/uL (4.2-5.4); WHITE BLOOD COUNT 3.31 K/uL (4.8-10.8)
[2017-07-28 07:21] LABS: BUN/CREATININE RATIO 20.3 (10-20); CALCIUM 8.9 mg/dl (8.5-10.1); CREATININE 0.82 mg/dl (0.60-1.20); POTASSIUM 3.8 mmol/L (3.5-5.1)
[2017-07-28 07:24] LABS: ALB/GLOB RATIO 0.7 (0.9-2)
[2017-07-28 07:53] LABS: COMPLETE YES; MEAN PLATELET VOLUME 12.3 fL (7.4-10.4); PLATELET COUNT 79 K/uL (130-400)
[2017-07-28] MEDS: ENOXAPARIN 40 MG/0.4 ML SYR SQ SCH (08:18)
[2017-07-28] MEDS: PANTOprazole SOD 40 MG TAB PO SCH (08:18)
[2017-07-28] MEDS: ESCITALOPRAM OXALATE 10 MG TAB PO SCH (08:18)
[2017-07-28] MEDS: ASPIRIN 81 MG ECTAB PO SCH (08:20)
[2017-07-28] MEDS: METFORMIN HCL 500 MG TAB PO SCH (08:20)
[2017-07-28] MEDS: POTASSIUM CHLORIDE 10 MEQ TABCR PO SCH ×2 (08:20→21:25)
[2017-07-28] MEDS ORDERED: NON-FORMULARY MEDICATION (Biotin 1 CAP) PO SCH (09:00)
--- NOTE | 2017-07-28 09:21 | Progress Note ---
Subjective Date of Service: Jul 28, 2017. Subjective Pt evaluation today including: conversation w/ patient, chart review, lab review Voiding: nova catheter in place (patent, draining clear, yellow urine) 62 yo female with suspected UTI, possible sepsis. Pt denies pain this morning. States she feels better, but still not well. Blood and urine cultures pending. She has been started on cefepime. Attempting to obtain urine culture results from [facility]. Non-contrast CT yesterday negative for ureteral stones. Persistent slight right hydro. Problem List Medical Problems: (1) Abdominal pain Status: Acute (2) Bacteremia Status: Acute (3) Contusion of left hip Status: Acute (4) Contusion of left shoulder Status: Acute (5) Dehydration Status: Acute (6) Elevated troponin Status: Acute (7) Frequent falls Status: Acute (8) Hypoxia Status: Acute (9) Lactic acidosis Status: Acute (10) Left sided chest pain Status: Acute (11) UTI (urinary tract infection) Status: Acute (12) UTI (urinary tract infection) Status: Acute (13) Weakness Status: Acute Review of Systems Constitutional: No fever, No chills Respiratory: No shortness of breath Cardiac: No chest pain Abdomen: No pain, No nausea, No vomiting Female : No hematuria Heme: No abnormal bleeding/bruising Objective Vital Signs Date Time Temp Pulse Resp B/P (MAP) Pulse Ox O2 Delivery O2 Flow Rate FiO2 07/28/17 07:10 76 16 94 Room Air 07/28/17 07:02 37.1 76 20 108/70 (83) 92 07/27/17 23:59 Room Air 07/27/17 23:55 37.3 77 18 126/78 (94) 94 07/27/17 21:43 37.0 83 18 113/68 (83) 94 Room Air 07/27/17 19:10 93 Room Air 07/27/17 18:48 62 16 93 Room Air 07/27/17 17:01 36.9 78 20 142/67 (92) 93 Room Air 07/27/17 17:00 36.9 78 20 142/67 93 Room Air 07/27/17 15:57 75 20 126/71 94 Room Air 07/27/17 14:23 78 18 124/82 95 Room Air 07/27/17 13:28 77 18 122/78 93 Room Air 07/27/17 11:36 37.1 78 18 139/80 94 Room Air Physical Exam General Appearance: no apparent distress, + obese Eyes: normal inspection ENT: hearing grossly normal Neck: no JVD Respiratory/Chest: no respiratory distress, no accessory muscle use Cardiovascular: no JVD Extremities: normal inspection Neurologic/Psychiatric: alert, normal mood/affect, oriented x 3 Skin: normal color Laboratory Results Last 24 Hours Test 07/27/17 12:45 07/27/17 12:50 07/27/17 12:56 07/27/17 16:23 Urine Color DK YELLOW Urine Appearance CLEAR Urine pH 5.5 Urine Specific [place] 1.024 Urine Protein NEG Urine Glucose (UA) NEG Urine Ketones NEG Urine Occult Blood NEG Urine Nitrite NEG Urine Bilirubin NEG Urine Urobilinogen NEG Urine Leukocyte Esterase TRACE Urine WBC (Auto) 1-5 /hpf Urine RBC (Auto) 0-4 /hpf Urine Hyaline Casts (Auto) 1-5 /lpf Urine Epithelial Cells (Auto) >30 /lpf Urine Bacteria (Auto) NEG White Blood Count 3.12 K/uL Red Blood Count 3.72 M/uL Hemoglobin 11.6 g/dL Hematocrit 36.5 % Mean Corpuscular Volume 98.1 fL Mean Corpuscular Hemoglobin 31.2 pg Mean Corpuscular Hemoglobin Concent 31.8 g/dl Platelet Count 85 K/uL Mean Platelet Volume 12.6 fL Neutrophils (%) (Auto) 56.4 % Lymphocytes (%) (Auto) 20.5 % Monocytes (%) (Auto) 12.8 % Eosinophils (%) (Auto) 9.3 % Basophils (%) (Auto) 1.0 % Neutrophils # (Auto) 1.76 K/uL Lymphocytes # (Auto) 0.64 K/uL Monocytes # (Auto) 0.40 K/uL Eosinophils # (Auto) 0.29 K/uL Basophils # (Auto) 0.03 K/uL RDW Standard Deviation 53.2 fL RDW Coefficient of Variation 14.9 % Immature Granulocyte % (Auto) 0.0 % Immature Granulocyte # (Auto) 0.00 K/uL Toxic Granulation 1+ Platelet Estimate DECREASED Prothrombin Time 11.9 SECONDS Prothromb Time International Ratio 1.1 Sodium Level 142 mmol/L Potassium Level 4.3 mmol/L Chloride Level 108 mmol/L Carbon Dioxide Level 25 mmol/L Anion Gap 9.0 mmol/L Blood Urea Nitrogen 17 mg/dl Creatinine 0.80 mg/dl Est Creatinine Clear Calc Drug Dose 86.2 ml/min Estimated GFR () 91.6 Estimated GFR (Non- 79.0 BUN/Creatinine Ratio 20.8 Random Glucose 144 mg/dl Calcium Level 9.0 mg/dl Total Bilirubin 0.6 mg/dl Aspartate Amino Transf (AST/SGOT) 46 U/L Alanine Aminotransferase (ALT/SGPT) 35 U/L Alkaline Phosphatase 117 U/L Total Protein 7.5 gm/dl Albumin 3.3 gm/dl Globulin 4.2 gm/dl Albumin/Globulin Ratio 0.8 Thyroid Stimulating Hormone (TSH) 0.020 uIu/ml Hepatitis C Antibody Screen NEG Bedside Lactic Acid Venous 2.10 mmol/L Bedside Glucose 110 mg/dl Test 07/27/17 16:57 07/27/17 20:08 07/28/17 06:38 07/28/17 07:40 Bedside Glucose 116 mg/dl 151 mg/dl 134 mg/dl White Blood Count 3.31 K/uL Red Blood Count 3.39 M/uL Hemoglobin 10.5 g/dL Hematocrit 33.3 % Mean Corpuscular Volume 98.2 fL Mean Corpuscular Hemoglobin 31.0 pg Mean Corpuscular Hemoglobin Concent 31.5 g/dl Platelet Count 79 K/uL Mean Platelet Volume 12.3 fL Neutrophils (%) (Auto) 49.8 % Lymphocytes (%) (Auto) 26.0 % Monocytes (%) (Auto) 13.0 % Eosinophils (%) (Auto) 10.3 % Basophils (%) (Auto) 0.9 % Neutrophils # (Auto) 1.65 K/uL Lymphocytes # (Auto) 0.86 K/uL Monocytes # (Auto) 0.43 K/uL Eosinophils # (Auto) 0.34 K/uL Basophils # (Auto) 0.03 K/uL RDW Standard Deviation 52.9 fL RDW Coefficient of Variation 14.9 % Immature Granulocyte % (Auto) 0.0 % Immature Granulocyte # (Auto) 0.00 K/uL Sodium Level 141 mmol/L Potassium Level 3.8 mmol/L Chloride Level 106 mmol/L Carbon Dioxide Level 27 mmol/L Anion Gap 9.0 mmol/L Blood Urea Nitrogen 17 mg/dl Creatinine 0.82 mg/dl Est Creatinine Clear Calc Drug Dose 84.1 ml/min Estimated GFR () 88.9 Estimated GFR (Non- 76.7 BUN/Creatinine Ratio 20.3 Random Glucose 132 mg/dl Calcium Level 8.9 mg/dl Total Bilirubin 0.6 mg/dl Aspartate Amino Transf (AST/SGOT) 34 U/L Alanine Aminotransferase (ALT/SGPT) 31 U/L Alkaline Phosphatase 107 U/L Total Protein 6.9 gm/dl Albumin 2.9 gm/dl Globulin 4.0 gm/dl Albumin/Globulin Ratio 0.7 Assessment and Plan A/P: UTI, right hydro, nephrolithiasis AFVSS. Continue IV abx pending culture sensitivities. Attempting to obtain culture results from [facility] (order placed) to aid in abx guidance as well. No ureteral stones seen on CT. Will avoid surgical intervention at this time. Will obtain a CT with IV contrast this morning per Dr. Vasquez to better assess right hydro and the kidney. Previously ordered as an outpatient by Dr. Escobar as well. Will continue to follow along with primary service.
--- NOTE | 2017-07-28 11:57 | DIAGNOSTIC IMAGING REPORT ---
KUB CLINICAL HISTORY: right hydronephrosis hydronephrosis COMPARISON STUDY: No previous studies for comparison. FINDINGS: Partial retrograde opacification of the upper right as well as left urinary tracts demonstrate moderate contrast bilaterally. No evidence for an obstructive pattern is present. There is slight fullness of the right renal pelvis compared to the left although again no distinct evidence for hydronephrosis. IMPRESSION: Slight fullness right renal collecting system and right ureter compared to the left. This may be an anatomic variant, with no definite obstructive process at the current time. The above report was generated using voice recognition software. It may contain grammatical, syntax or spelling errors. Electronically signed by: Carter Robison M.D. 07/28/2017 11:56 AM Dictated Date/Time: 07/28/2017 11:54 AM
--- NOTE | 2017-07-28 12:01 | DIAGNOSTIC IMAGING REPORT ---
ABD/PELVIS IV CONTRAST ONLY CLINICAL HISTORY: 62 years-old Female presenting with mild right hydro. TECHNIQUE: Multidetector CT of the abdomen and pelvis was performed after the administration of intravenous contrast. IV contrast: 110 mL of Optiray 320. A dose lowering technique was used consistent with the principles of ALARA (as low as reasonably achievable). COMPARISON: 07/27/2017. CT DOSE (mGy.cm): The estimated cumulative dose is 1809.89 mGy.cm. FINDINGS: [employer] topogram: Unremarkable. Lung bases: Minimal dependent changes in the right lower lobe, likely atelectasis. Nodular dependent opacity in the left lower lobe may also represent atypical atelectasis (series 3 image 1). Bronchial wall thickening suggested in the right lower lobe.. Coronary artery calcification. Normal heart size. No pericardial or pleural effusion. Liver: Cirrhotic morphology. Allowing for the single phase of contrast, no focal lesion. Patent hepatic vasculature. Biliary: No intrahepatic or extrahepatic biliary ductal dilatation. Gallbladder contains gallstones. Pancreas: Mild parenchymal atrophy. Spleen: Enlarged measuring 14.4 cm in maximal sagittal dimension. Adrenal glands: Normal. Kidneys and ureters: No abnormal parenchymal enhancement of the kidneys. No perinephric fat stranding. Previously noted calculus at the upper pole the right kidney is no longer visualized, consistent with passage. No calculus in the right ureter. Mild right pelvocaliectasis. No dilatation of the right ureter. Normal urothelial thickening may be present on the right. No left renal calculus. No left hydronephrosis. Left ureter normal. Bladder: Decompressed with a Cline catheter. Pelvic organs: Uterus and ovaries normal. Bowel: Limited scattered diverticulosis in the descending and sigmoid colon. Normal appendix. No bowel obstruction. Peritoneal cavity: No free fluid or intraperitoneal gas. Lymph nodes: Enlarged bilateral external iliac lymph nodes, on the right measuring up to 9 mm in the short axis and on the left measuring up to 11 mm in the short axis. Scattered subcentimeter retroperitoneal lymph nodes. Prominent portacaval lymph node measuring 11 mm in the short axis. Enlarged right inguinal lymph node measures 13 mm in the short axis. Vasculature: Atherosclerosis of the normal caliber abdominal aorta. IVC patent. Abdominal wall: Diastasis of the rectus abdominis. Musculoskeletal: Degenerative changes of the spine. IMPRESSION: 1. No CT evidence of pyelonephritis, which does not exclude the diagnosis. However, interval passage of the punctate right renal calculus could explain the presence of mild urothelial thickening from inflammation/irritation of the recently passed stone. 2. Mild right pelvocaliectasis. No convincing evidence of hydronephrosis. No ureteral obstruction. 3. Nonspecific bilateral external lymphadenopathy with scattered smaller retroperitoneal lymph nodes. Prominent lymph nodes have been visualized since 2009, although there may be minimal interval increase in size. These may be reactive. 4. Cirrhosis with portal hypertension evidenced by splenomegaly. Electronically signed by: Norris Pineda M.D. 07/28/2017 12:00 PM Dictated Date/Time: 07/28/2017 11:36 AM
[2017-07-28] MEDS: CEFEPIME IV 2,000 MG in SYRINGE 7.5 ML IV SCH (12:33)
[2017-07-28] MEDS ORDERED: VANCOMYCIN CONSULT ACTIVE PRN (12:45)
[2017-07-28] MEDS ORDERED: VANCOMYCIN INJ 2,750 MG in SODIUM CHLORIDE 0.9% 500ML 500 ML IV SCH (13:30)
--- NOTE | 2017-07-28 14:57 | Pharmacy Progress Note ---
Pharmacy Abx Initial Consult Date of Service Jul 28, 2017. Pharmacy Dosing Scope Date of Consult: 07/28/17 Consultation requested by: Dr. Ocasio Pharmacy is consulted to initiate Vancomycin IV dosing therapy, order appropriate labs and adjust drug dose/frequency. Subjective The patient is a 62 year old female admitted on Jul 27, 2017 at 15:23. Objective Height (Feet): 4 Height (Inches): 11.00 Weight (Kilograms): 122.300 Vital Signs (Past 12Hrs) Vital Signs Past 12 Hours Date Time Temp Pulse Resp B/P (MAP) Pulse Ox O2 Delivery O2 Flow Rate FiO2 07/28/17 14:39 36.8 78 20 104/67 (79) 92 07/28/17 08:00 94 Room Air 07/28/17 07:10 76 16 94 Room Air 07/28/17 07:02 37.1 76 20 108/70 (83) 92 Lab Results (24Hrs) Item Value Date Time Creatinine 0.82 mg/dl 07/28/17 0638 Est Creatinine Clear Calc Drug Dose 84.1 ml/min 07/28/17 0638 Estimated GFR () 88.9 07/28/17 0638 Estimated GFR (Non- 76.7 07/28/17 0638 BUN/Creatinine Ratio 20.3 H 07/28/17 0638 Laboratory Tests (24 Hours) Test 07/28/17 06:38 White Blood Count 3.31 K/uL (4.8-10.8) L Red Blood Count 3.39 M/uL (4.2-5.4) L Hemoglobin 10.5 g/dL (12.0-16.0) L Hematocrit 33.3 % (37-47) L Mean Corpuscular Volume 98.2 fL (80-100) Mean Corpuscular Hemoglobin 31.0 pg (25-34) Mean Corpuscular Hemoglobin Concent 31.5 g/dl (32-36) L Platelet Count 79 K/uL (130-400) L Mean Platelet Volume 12.3 fL (7.4-10.4) H Neutrophils (%) (Auto) 49.8 % Lymphocytes (%) (Auto) 26.0 % Monocytes (%) (Auto) 13.0 % Eosinophils (%) (Auto) 10.3 % Basophils (%) (Auto) 0.9 % Neutrophils # (Auto) 1.65 K/uL (1.4-6.5) Lymphocytes # (Auto) 0.86 K/uL (1.2-3.4) L Monocytes # (Auto) 0.43 K/uL (0.11-0.59) Eosinophils # (Auto) 0.34 K/uL (0-0.5) Basophils # (Auto) 0.03 K/uL (0-0.2) Micro Results Date/Time Source Procedure Growth Status 07/27/17 13:00 Blood Blood Culture Pending Received 07/27/17 12:50 Blood Blood Culture Pending Received 07/27/17 17:00 Nasal MRSA DNA Surveillance Screen - Final Specimen Negative for MRSA by DNA Probe Complete 07/27/17 00:00 Urine,Catheterized Urine Culture - Preliminary PIN-POINT GROWTH PRESENT, REINCUBATING. Resulted Risk Factors for Resistance * Resident in a usp or extended-care facility Assessment & Plan Assessment 62 yo female with suspected UTI, possible sepsis. Patient had a reported fever of 103 at [facility] 2 days ago. History of questionable right hydronephrosis with a 3 mm nonobstructing stone and intermittent pain. Plan Vancomycin for treatment of Bacteremia confirmed by blood cultures from reported as Staph species - methicillin resistant x 1 and gram positive cocci in clusters x 1. Blood cultures are from [facility]. Patient was febrile at [facility] prior to admission. Vancomycin IV * Loading dose: 2750 mg (22.5 mg/kg) given 07/28/17 @1430 * Maintenance dose: 1750 mg IV (14.3 mg/kg) every 12 hours * Goal trough level for Bacteremia : 15 to 20 mcg/mL * Trough/Random level ordered for 07/30/17 @1330 * A less than traditional dose and/or extended dosing interval has/have been selected due to likelihood of drug accumulation in obese patient. Pharmacy will continue to follow and will adjust dose/frequency as necessary. Thank you.
--- NOTE | 2017-07-28 15:01 | Medical Consult ---
Consultation Date of Consultation: Jul 28, 2017. Attending Physician: Ledy Ocasio M.D. Reason for Consultation: MRSA bacteremia History of Present Illness 62-year-old female with history of cerebral palsy, hospitalization in June for urinary tract infection with Rachelle with finding of mild right hydronephrosis and nonobstructive stone disease, who several days prior to admission developed recurrent fever up to 103, treated with levofloxacin without improvement. Blood cultures were drawn, and now reported positive, 1 set, for MRSA. Patient had right flank pain which has now resolved. Patient currently afebrile. Follow-up cultures are pending. CT scan shows no obvious obstruction. Patient states she is now feeling better. Past Medical/Surgical History Medical Problems: (1) Abdominal pain Status: Acute (2) Bacteremia Status: Acute (3) Contusion of left hip Status: Acute (4) Contusion of left shoulder Status: Acute (5) Dehydration Status: Acute (6) Elevated troponin Status: Acute (7) Frequent falls Status: Acute (8) Hypoxia Status: Acute (9) Lactic acidosis Status: Acute (10) Left sided chest pain Status: Acute (11) UTI (urinary tract infection) Status: Acute (12) UTI (urinary tract infection) Status: Acute (13) Weakness Status: Acute Medical Problems: (1) Asthma (2) Bilateral lower extremity edema (3) Cerebral palsy (4) Chronic pain (5) DM type 2 (diabetes mellitus, type 2) (6) Dyslipidemia (7) Fibromyalgia (8) VIDA (generalized anxiety disorder) (9) History of migraine (10) Hypothyroidism (11) Major depressive disorder, recurrent, moderate (12) NG (nonalcoholic steatohepatitis) (13) Obesity, morbid (more than 100 lbs over ideal weight or BMI > 40) (14) Obstructive sleep apnea (15) Osteoarthritis (16) Venous insufficiency Surgical Problems: (1) H/O Achilles tendon repair (2) H/O section (3) H/O wisdom tooth extraction (4) History of D&C Family History FH: CAD (coronary artery disease) MOTHER (ND in her 50s) Social History Smoking Status: Never Smoker Marital Status: Housing Status: lives with family Occupation Status: disabled Allergies Coded Allergies: Penicillins (Verified Allergy, Intermediate, HIVES, 07/27/17) Current Inpatient Medications Current Inpatient Medications Medications (Trade) Dose Ordered Sig/Betsy Route Start Time Stop Time Status Last Admin Dose Admin Aspirin (Ecotrin Tab) 81 mg QAM PO 07/28/17 09:00 08/27/17 08:59 07/28/17 08:20 81 MG Atenolol (Tenormin Tab) 25 mg HS PO 07/27/17 21:00 08/26/17 20:59 07/27/17 20:37 25 MG Atorvastatin Calcium (Lipitor Tab) 40 mg HS PO 07/27/17 21:00 08/26/17 20:59 07/27/17 20:37 40 MG Docusate Sodium (coLACE CAP) 100 mg TID PRN PO 07/27/17 15:45 08/26/17 15:44 Escitalopram Oxalate (Lexapro Tab) 15 mg QAM PO 07/28/17 09:00 08/27/17 08:59 07/28/17 08:18 15 MG Furosemide (Lasix Tab) 20 mg BID PRN PO 07/27/17 15:45 08/26/17 15:44 07/28/17 08:19 20 MG Levothyroxine Sodium (Synthroid Tab) 88 mcg DAILYBB PO 07/28/17 06:30 08/27/17 06:59 07/28/17 06:11 88 MCG Levothyroxine Sodium (Synthroid Tab) 100 mcg DAILYBB PO 07/28/17 06:30 08/27/17 06:59 07/28/17 06:11 100 MCG Metformin HCl (Glucophage Tab) 1,000 mg BID PO 07/27/17 21:00 08/26/17 20:59 07/28/17 08:20 1,000 MG Trazodone HCl (Desyrel Tab) 50 mg HS PO 07/27/17 21:00 08/26/17 20:59 07/27/17 20:36 50 MG Albuterol (Ventolin Hfa Inhaler) 2 puffs DAILY PRN INH 07/27/17 15:45 08/26/17 15:44 Pantoprazole Sodium (Protonix Tab) 40 mg QAM PO 07/28/17 09:00 08/27/17 08:59 07/28/17 08:18 40 MG Albuterol/ Ipratropium (Duoneb) 3 ml QIDR INH 07/27/17 16:00 08/26/17 15:59 07/28/17 14:40 3 ML Enoxaparin Sodium (Lovenox Inj) 40 mg QAM SQ 07/28/17 09:00 08/27/17 08:59 07/28/17 08:18 40 MG Potassium Chloride (Klor-Con M10) 10 meq BID PO 07/27/17 21:00 08/26/17 20:59 07/28/17 08:20 10 MEQ Cefepime HCl 2000 mg/Syringe 20 ml @ 5 mls/min Q12@0000,1200 IV 07/28/17 00:00 08/07/17 00:00 07/28/17 12:33 5 MLS/MIN Vancomycin HCl (Consult) 1 ea UD PRN N/A 07/28/17 12:45 08/27/17 12:44 Vancomycin HCl 2750 mg/Sodium Chloride 555 ml @ 200 mls/hr TODAY@1330 IV 07/28/17 13:30 07/28/17 16:17 07/28/17 14:34 200 MLS/HR Vancomycin HCl 1750 mg/Sodium Chloride 535 ml @ 200 mls/hr Q12H IV 07/29/17 02:00 08/11/17 01:59 Review of Systems All systems were reviewed and are negative except as per HPI Physical Exam Date Time Temp Pulse Resp B/P (MAP) Pulse Ox O2 Delivery O2 Flow Rate FiO2 07/28/17 14:40 80 16 95 Room Air 07/28/17 14:39 36.8 78 20 104/67 (79) 92 07/28/17 08:00 94 Room Air 07/28/17 07:10 76 16 94 Room Air 07/28/17 07:02 37.1 76 20 108/70 (83) 92 07/27/17 23:59 Room Air 07/27/17 23:55 37.3 77 18 126/78 (94) 94 07/27/17 21:43 37.0 83 18 113/68 (83) 94 Room Air 07/27/17 19:10 93 Room Air 07/27/17 18:48 62 16 93 Room Air 07/27/17 17:01 36.9 78 20 142/67 (92) 93 Room Air 07/27/17 17:00 36.9 78 20 142/67 93 Room Air 07/27/17 15:57 75 20 126/71 94 Room Air General Appearance: WD/WN, no apparent distress Head: normocephalic, atraumatic Eyes: normal inspection, EOMI, sclerae normal ENT: normal ENT inspection, pharynx normal Neck: supple, no adenopathy, thyroid normal, trachea midline Respiratory/Chest: chest non-tender, lungs clear, normal breath sounds, no respiratory distress Cardiovascular: regular rate, rhythm, no gallop, no murmur Abdomen/GI: normal bowel sounds, non tender, soft, no organomegaly Back: normal inspection, no CVA tenderness Extremities/Musculoskelatal: no calf tenderness, non-tender Neurologic/Psych: alert, oriented x 3 Skin: normal color, no rash Lymphatic: no adenopathy Laboratory Results Date/Time Source Procedure Growth Status 07/27/17 17:00 Nasal MRSA DNA Surveillance Screen - Final Specimen Negative for MRSA by DNA Probe Complete Last 24 Hours Test 07/27/17 16:23 07/27/17 16:57 07/27/17 20:08 07/28/17 06:38 Bedside Glucose 110 mg/dl 116 mg/dl 151 mg/dl White Blood Count 3.31 K/uL Red Blood Count 3.39 M/uL Hemoglobin 10.5 g/dL Hematocrit 33.3 % Mean Corpuscular Volume 98.2 fL Mean Corpuscular Hemoglobin 31.0 pg Mean Corpuscular Hemoglobin Concent 31.5 g/dl Platelet Count 79 K/uL Mean Platelet Volume 12.3 fL Neutrophils (%) (Auto) 49.8 % Lymphocytes (%) (Auto) 26.0 % Monocytes (%) (Auto) 13.0 % Eosinophils (%) (Auto) 10.3 % Basophils (%) (Auto) 0.9 % Neutrophils # (Auto) 1.65 K/uL Lymphocytes # (Auto) 0.86 K/uL Monocytes # (Auto) 0.43 K/uL Eosinophils # (Auto) 0.34 K/uL Basophils # (Auto) 0.03 K/uL RDW Standard Deviation 52.9 fL RDW Coefficient of Variation 14.9 % Immature Granulocyte % (Auto) 0.0 % Immature Granulocyte # (Auto) 0.00 K/uL Sodium Level 141 mmol/L Potassium Level 3.8 mmol/L Chloride Level 106 mmol/L Carbon Dioxide Level 27 mmol/L Anion Gap 9.0 mmol/L Blood Urea Nitrogen 17 mg/dl Creatinine 0.82 mg/dl Est Creatinine Clear Calc Drug Dose 84.1 ml/min Estimated GFR () 88.9 Estimated GFR (Non- 76.7 BUN/Creatinine Ratio 20.3 Random Glucose 132 mg/dl Calcium Level 8.9 mg/dl Total Bilirubin 0.6 mg/dl Aspartate Amino Transf (AST/SGOT) 34 U/L Alanine Aminotransferase (ALT/SGPT) 31 U/L Alkaline Phosphatase 107 U/L Total Protein 6.9 gm/dl Albumin 2.9 gm/dl Globulin 4.0 gm/dl Albumin/Globulin Ratio 0.7 Test 07/28/17 07:40 07/28/17 11:06 Bedside Glucose 134 mg/dl 141 mg/dl Patient Name: RYLAND SHAW Unit Number: [id number] Dictated: 07/28/171135 Transcribed: 07/28/171135 PBS Printed Date/Time: [~ rep prt dt]/[~ rep prt tm] [~ rep ct labl] - [~ rep ct ivnm] [facility] [place] [address] Dictated: 07/28/171135 Transcribed: 07/28/171135 PBS Printed Date/Time: [~ rep prt dt]/[~ rep prt tm] [~ rep ct labl] - [~ rep ct ivnm] CLINICAL HISTORY: 62 years-old Female presenting with mild right hydro. TECHNIQUE: Multidetector CT of the abdomen and pelvis was performed after the administration of intravenous contrast. IV contrast: 110 mL of Optiray 320. A dose lowering technique was used consistent with the principles of ALARA (as low as reasonably achievable). COMPARISON: 07/27/2017. CT DOSE (mGy.cm): The estimated cumulative dose is 1809.89 mGy.cm. FINDINGS: Exterior Work Helper topogram: Unremarkable. Lung bases: Minimal dependent changes in the right lower lobe, likely atelectasis. Nodular dependent opacity in the left lower lobe may also represent atypical atelectasis (series 3 image 1). Bronchial wall thickening suggested in the right lower lobe.. Coronary artery calcification. Normal heart size. No pericardial or pleural effusion. Liver: Cirrhotic morphology. Allowing for the single phase of contrast, no focal lesion. Patent hepatic vasculature. Biliary: No intrahepatic or extrahepatic biliary ductal dilatation. Gallbladder contains gallstones. Pancreas: Mild parenchymal atrophy. Spleen: Enlarged measuring 14.4 cm in maximal sagittal dimension. Adrenal glands: Normal. Kidneys and ureters: No abnormal parenchymal enhancement of the kidneys. No perinephric fat stranding. Previously noted calculus at the upper pole the right kidney is no longer visualized, consistent with passage. No calculus in the right ureter. Mild right pelvocaliectasis. No dilatation of the right ureter. Normal urothelial thickening may be present on the right. No left renal calculus. No left hydronephrosis. Left ureter normal. Bladder: Decompressed with a Cline catheter. Pelvic organs: Uterus and ovaries normal. Bowel: Limited scattered diverticulosis in the descending and sigmoid colon. Normal appendix. No bowel obstruction. Peritoneal cavity: No free fluid or intraperitoneal gas. Lymph nodes: Enlarged bilateral external iliac lymph nodes, on the right measuring up to 9 mm in the short axis and on the left measuring up to 11 mm in the short axis. Scattered subcentimeter retroperitoneal lymph nodes. Prominent portacaval lymph node measuring 11 mm in the short axis. Enlarged right inguinal lymph node measures 13 mm in the short axis. Vasculature: Atherosclerosis of the normal caliber abdominal aorta. IVC patent. Abdominal wall: Diastasis of the rectus abdominis. Musculoskeletal: Degenerative changes of the spine. IMPRESSION: 1. No CT evidence of pyelonephritis, which does not exclude the diagnosis. However, interval passage of the punctate right renal calculus could explain the presence of mild urothelial thickening from inflammation/irritation of the recently passed stone. 2. Mild right pelvocaliectasis. No convincing evidence of hydronephrosis. No ureteral obstruction. 3. Nonspecific bilateral external lymphadenopathy with scattered smaller retroperitoneal lymph nodes. Prominent lymph nodes have been visualized since 2009, although there may be minimal interval increase in size. These may be reactive. 4. Cirrhosis with portal hypertension evidenced by splenomegaly. Electronically signed by: Norris Pineda M.D. 07/28/2017 12:00 PM Dictated Date/Time: 07/28/2017 11:36 AM The status of this report is Signed. Draft = Not yet reviewed or approved by Radiologist. Signed = Reviewed and approved by Radiologist. <AttendingPhy>Ledy Ocasio M.D.</AttendingPhy> <FamilyPhy>Nancy Matute M.D. (MEDICAL)</FamilyPhy> <PrimaryPhy>Nancy Matute M.D. (MEDICAL)</ PrimaryPhy> <UnitNumber>[id number]</UnitNumber> <VisitNumber>[id number]</ VisitNumber> <PatientName>RYLAND SHAW</PatientName> <DateOfBirth>1955</ DateOfBirth> <Location>[facility]</Location> <ServiceDate>07/27/17</ServiceDate> < MNE>ESINDI</MNE> <OrderingPhy>Marie Cota</OrderingPhy> < OrderingPhyMNE>f rep ord dr rojas</OrderingPhyMNE> <DictatingPhyMNE>f rep dict dr rojas</DictatingPhyMNE> <CCListMNE>f rep ct eileene</CCListMNE> <AdmittingPhyMNE>f pt admit dr rojas</AdmittingPhyMNE> <AttendingPhyMNE>f pt attend dr rojas</ AttendingPhyMNE> <ConsultingPhyMNE>f pt consult dr rojas</ConsultingPhyMNE> <FamilyPhyMNE>f pt fam dr rojas</FamilyPhyMNE> <OtherPhyMNE>f pt other dr rojas</OtherPhyMNE> < PrimaryPhyMNE>f pt prim care dr rojas</PrimaryPhyMNE> <ReferringPhyMNE>f pt referring dr rojas</ReferringPhyMNE> Assessment & Plan 62-year-old female with MRSA bacteremia of unclear source, does not appear to be related to urinary tract infection given unremarkable urinalysis and abdominal CT findings. Recommend vancomycin pending further sensitivity results , and follow-up blood cultures have been drawn. Will need echocardiogram, with follow-up cultures to ensure clearance of bacteremia. Will follow.
--- NOTE | 2017-07-28 15:48 | Progress Note ---
Internal Med Progress Note Date of Service: Jul 28, 2017. Provider Documentation: SUBJECTIVE: flank pain has resolved no complain of abdominal pain or nausea no fever or chills worried about infection in blood present at bedside OBJECTIVE: Vital Signs-as noted below Exam: General-no apparent distress Eyes-sclera non icteric , PERRLA/EOMI ENT-moist oral mucosa, normal exam of oropharynx , hearing grossly normal Neck-no thyromegaly , trachea midline Lungs-diminished , no rales or wheeze Heart-regular S1/S2 Abdomen-soft, non tender Extremities-+ 1-2 bilateral lower ext edema Neuro-AAO x3, cerebral palsy , baseline lower ext weakness Lab data as noted below. ASSESSMENT & PLAN: FLANK PAIN /UTI : CT ABDOMEN /PELVIS : No CT evidence of pyelonephritis, which does not exclude the diagnosis. However, interval passage of the punctate right renal calculus could explain the presence of mild urothelial thickening from inflammation/irritation of the recently passed stone. appreciate Urology eval MRSA BACTEREMIA : ordered for vancomycin ID consulted , appreciate input ECHO ordered to rule out vegetation pt will need PICC line for lobsterman IV Abx /poor peripheral access Cerebral palsy -minimally ambulatory and leg strength weaker than upper extremity strength ordered PT/OT Lower extremity swelling -chronic as per patient, encourage leg elevation, wound care for dressings -Lasix 20 mg for leg swelling Cardiovascular -continue home dosed aspirin and atenolol and atorvastatin Hypothyroidism -continue home dose Levothyroxine 188 mcg daily Asthma -nebulizer/inhaler treatments as needed Mood disorder -continue home dose escitalopram and trazodone Musculoskeletal -no acute musculoskeletal pain, hold home meds for now of [place], Neurontin, Flexeril DVT ppx: moderate to high risk due to body habitus , non ambulatory status Lovenox 40 mg subq Full Code Status DISPOSITION return to [facility] for continued Rehab when medically stable updated at bedside Vital Signs: Date Time Temp Pulse Resp B/P (MAP) Pulse Ox O2 Delivery O2 Flow Rate FiO2 07/29/17 07:21 78 16 92 Room Air 07/29/17 07:06 36.9 68 20 133/80 (97) 95 Room Air 07/29/17 00:02 Room Air 07/28/17 23:26 37.1 76 18 95/60 (72) 94 Room Air 07/28/17 21:23 87 120/75 (90) 07/28/17 18:56 82 16 92 Room Air 07/28/17 15:30 92 Room Air 07/28/17 14:40 80 16 95 Room Air 07/28/17 14:39 36.8 78 20 104/67 (79) 92 Lab Results: Results Past 24 Hours Test 07/28/17 11:06 07/28/17 16:28 07/28/17 20:09 07/29/17 06:24 Range/Units Bedside Glucose 141 152 156 70-90 mg/dl Creatinine 0.71 0.60-1.20 mg/dl Est Creatinine Clear Calc Drug Dose 97.1 ml/min Estimated GFR () 105.8 Estimated GFR (Non- 91.3 Estimated Average Glucose 194 mg/dl Hemoglobin A1c 8.4 4.5-5.6 % Test 07/29/17 07:10 Range/Units Bedside Glucose 129 70-90 mg/dl
[2017-07-28] MEDS ORDERED: DEXTROSE 50% 50 ML SYR IV PRN (16:15)
[2017-07-28] MEDS ORDERED: GLUCAGON FOR INJ 1 MG VIAL SQ PRN (16:15)
[2017-07-28] MEDS ORDERED: GLUCOSE 40% GEL 15 GM TUBE PO PRN (16:15)
[2017-07-28] MEDS ORDERED: GLUCOSE 10 TABS/TUBE PO PRN (16:15)
[2017-07-28] MEDS: INSULIN HUMAN REGULAR SC SCH ×2 (18:22→21:22)
[2017-07-28] MEDS: TRAZODONE HCL 50 MG TAB PO SCH (21:24)
[2017-07-28] MEDS: ATORVASTATIN 40 MG TAB PO SCH (21:25)
[2017-07-29] VITALS (8 sets, daily range): BP systolic 125–150; BP diastolic 74–81; PULSE 68–84; TEMP 36.9–37.3; O2SAT 91–96
[2017-07-29] MEDS: CEFEPIME IV 2,000 MG in SYRINGE 7.5 ML IV SCH ×2 (00:16→12:31)
[2017-07-29] MEDS: VANCOMYCIN INJ 1,750 MG in SODIUM CHLORIDE 0.9% 500ML 500 ML IV SCH ×2 (02:30→14:03)
[2017-07-29] MEDS: LEVOTHYROXINE 100 MCG TAB PO SCH (06:34)
[2017-07-29] MEDS: LEVOTHYROXINE 88 MCG TAB PO SCH (06:35)
[2017-07-29 07:07] LABS: ESTIMATED AVERAGE GLUCOSE 194 mg/dl; HA1C FLAG Normal (Normal)
[2017-07-29 07:08] LABS: CREATININE 0.71 mg/dl (0.60-1.20)
[2017-07-29] MEDS: ALBUT/IPRATROP 3MG/0.5MG NEB 3 ML VIAL INH SCH ×4 (07:18→20:08)
[2017-07-29] MEDS: ESCITALOPRAM OXALATE 10 MG TAB PO SCH (08:57)
[2017-07-29] MEDS: PANTOprazole SOD 40 MG TAB PO SCH (08:57)
[2017-07-29] MEDS: ASPIRIN 81 MG ECTAB PO SCH (08:57)
[2017-07-29] MEDS: ENOXAPARIN 40 MG/0.4 ML SYR SQ SCH (08:58)
[2017-07-29] MEDS: INSULIN HUMAN REGULAR SC SCH ×4 (09:05→22:02)
[2017-07-29] MEDS: POTASSIUM CHLORIDE 10 MEQ TABCR PO SCH ×2 (09:24→21:56)
--- NOTE | 2017-07-29 10:37 | Progress Note ---
Subjective Date of Service: Jul 29, 2017. Subjective Pt evaluation today including: conversation w/ patient, physical exam, lab review Voiding: nova catheter in place Subjectively improved No flank pain No bother from the catheter No fevers/chills Problem List Medical Problems: (1) Abdominal pain Status: Acute (2) Bacteremia Status: Acute (3) Contusion of left hip Status: Acute (4) Contusion of left shoulder Status: Acute (5) Dehydration Status: Acute (6) Elevated troponin Status: Acute (7) Frequent falls Status: Acute (8) Hypoxia Status: Acute (9) Lactic acidosis Status: Acute (10) Left sided chest pain Status: Acute (11) UTI (urinary tract infection) Status: Acute (12) UTI (urinary tract infection) Status: Acute (13) Weakness Status: Acute Review of Systems Constitutional: No see HPI, No fever, No chills, No sweats, No weight loss, No weakness, No fatigue, No problem reported Abdomen: No see HPI, No pain, No nausea, No vomiting, No diarrhea, No constipation, No GI bleeding, No problem reported Objective Vital Signs Date Time Temp Pulse Resp B/P (MAP) Pulse Ox O2 Delivery O2 Flow Rate FiO2 07/29/17 09:51 Room Air 07/29/17 07:21 78 16 92 Room Air 07/29/17 07:06 36.9 68 20 133/80 (97) 95 Room Air 07/29/17 00:02 Room Air 07/28/17 23:26 37.1 76 18 95/60 (72) 94 Room Air 07/28/17 21:23 87 120/75 (90) 07/28/17 18:56 82 16 92 Room Air 07/28/17 15:30 92 Room Air 07/28/17 14:40 80 16 95 Room Air 07/28/17 14:39 36.8 78 20 104/67 (79) 92 Physical Exam General Appearance: WD/WN, no apparent distress Eyes: normal inspection ENT: hearing grossly normal Neck: no adenopathy Respiratory/Chest: no respiratory distress, no accessory muscle use Cardiovascular: regular rate, rhythm Abdomen: non tender, soft (obese, no CVA tenderness no superpubic tenderness) Neurologic/Psychiatric: alert, normal mood/affect, oriented x 3 Skin: warm/dry Lymphatic: no adenopathy Laboratory Results Last 24 Hours Test 07/28/17 11:06 07/28/17 16:28 07/28/17 20:09 07/29/17 06:24 Bedside Glucose 141 mg/dl 152 mg/dl 156 mg/dl Creatinine 0.71 mg/dl Est Creatinine Clear Calc Drug Dose 97.1 ml/min Estimated GFR () 105.8 Estimated GFR (Non- 91.3 Estimated Average Glucose 194 mg/dl Hemoglobin A1c 8.4 % Test 07/29/17 07:10 Bedside Glucose 129 mg/dl Assessment and Plan UTI; nonobstructing renal stone She has had a CT without contrast, CT with contrast, and the follow-up KUB I do not see any clear indication for intervention - there is no significant obstruction or structural abnormality that necessitates treatment at present Continuing Nova catheter seems reasonable secondary to her limited mobility Continue antibiotics and conservative management as per primary team
--- NOTE | 2017-07-29 12:35 | ECHOCARDIOGRAM REPORT ---
*NOTICE TO RECEIVING REPUBLICAN AGENCY This information is strictly Confidential and protected under [place] law. [place] law prohibits you from making any further disclosure of this information unless further disclosure is expressly permitted by the written consent of the person to whom it pertains or is authorized by law. A general authorization for the release of medical or other information is not sufficient for this purpose. Hospital accepts no responsibility if the information is made available to any other person, INCLUDING THE PATIENT. Interpretation Summary * Name: RYLAND SHAW Study Date: 07/29/2017 10:48 AM BP: 133/80 mmHg * Patient Location: [facility] HR: 78 * : 1955 (M/d/yyyy) Gender: Female Height: 59 in * Age: 62 yrs Ethnicity: CA Weight: 269 lb * Ordering Physician: Ledy Ocasio MD * Performed By: Aisha Maldonado RDCS * * Reason For Study: MRSA, Bacteremia, R/O Endocarditis * BSA: 2.1 m2 * The study was technically limited. * -- Conclusions -- * The study was technically limited. * Acoustic windows are poor and not adequate for evaluation of cardiac valves. Procedure Details * Limited views were obtained. * The study was technically difficult. Left Ventricle * The left ventricle is grossly normal size. * The left ventricular ejection fraction is grossly normal. Right Ventricle * The right ventricle is not well visualized. Mitral Valve * The mitral valve is not well visualized. * The mitral valve is grossly normal. Tricuspid Valve * The tricuspid valve is not well visualized. Aortic Valve * The aortic valve is not well visualized. * No hemodynamically significant valvular aortic stenosis. Pulmonic Valve * The pulmonic valve is not well visualized.
--- NOTE | 2017-07-29 16:33 | Progress Note ---
Internal Med Progress Note Date of Service: Jul 29, 2017. Provider Documentation: SUBJECTIVE: no fever or chills no complain of flank pain feels fine OBJECTIVE: Vital Signs-as noted below Exam: General-no apparent distress Eyes-sclera non icteric , PERRLA/EOMI ENT-moist oral mucosa, normal exam of oropharynx , hearing grossly normal Neck-no thyromegaly , trachea midline Lungs-diminished , no rales or wheeze Heart-regular S1/S2 Abdomen-soft, non tender Extremities-+ 1-2 bilateral lower ext edema Neuro-AAO x3, cerebral palsy , baseline lower ext weakness Lab data as noted below. ASSESSMENT & PLAN: MRSA BACTEREMIA : blood culture on 07/26/17 -at [employer] Anaerobic bottle -growth of gram positive cocci in Clusters MRSA Pt is continued with IV Vancomycin ID consulted , appreciate input repeat blood culture on admission -no growth ECHO -The study was technically limited. * Acoustic windows are poor and not adequate for evaluation of cardiac valves. ordered for PICC line for residential IV Abx /poor peripheral access FLANK PAIN /UTI : CT ABDOMEN /PELVIS : symptom has resolved No CT evidence of pyelonephritis However, interval passage of the punctate right renal calculus could explain the presence of mild urothelial thickening from inflammation/irritation of the recently passed stone. Xray of KUB : Slight fullness right renal collecting system and right ureter compared to the left. This may be an anatomic variant, with no definite obstructive process at the current time. appreciate Urology eval -non obstructive renal stone noted no urological intervention needed CEREBRAL PALSY : -minimally ambulatory and leg strength weaker than upper extremity strength ordered PT/OT CHRONIC BILATERAL LOWER EXT EDEMA /CHRONIC VENOUS STASIS -encourage leg elevation, wound care for dressings -Cont Lasix 20 mg for leg swelling HX OF CAD -continue home dosed aspirin and atenolol and atorvastatin HYPOTHYROIDISM -continue home dose Levothyroxine 188 mcg daily ASTHMA : no wheeze or rales -nebulizer/inhaler treatments as needed Mood disorder -continue home dose escitalopram and trazodone DVT ppx: moderate to high risk due to body habitus , non ambulatory status Lovenox 40 mg subq Full Code Status DISPOSITION return to [facility] for continued Rehab when medically stable updated at bedside Vital Signs: Date Time Temp Pulse Resp B/P (MAP) Pulse Ox O2 Delivery O2 Flow Rate FiO2 07/29/17 15:20 Room Air 07/29/17 15:18 36.9 81 18 125/74 (91) 92 Room Air 07/29/17 15:14 80 16 91 Room Air 07/29/17 11:08 73 16 96 Room Air 07/29/17 09:51 Room Air 07/29/17 07:21 78 16 92 Room Air 07/29/17 07:06 36.9 68 20 133/80 (97) 95 Room Air 07/29/17 00:02 Room Air 07/28/17 23:26 37.1 76 18 95/60 (72) 94 Room Air 07/28/17 21:23 87 120/75 (90) 07/28/17 18:56 82 16 92 Room Air Lab Results: Results Past 24 Hours Test 07/28/17 20:09 07/29/17 06:24 07/29/17 07:10 07/29/17 11:14 Range/Units Bedside Glucose 156 129 176 70-90 mg/dl Creatinine 0.71 0.60-1.20 mg/dl Est Creatinine Clear Calc Drug Dose 97.1 ml/min Estimated GFR () 105.8 Estimated GFR (Non- 91.3 Estimated Average Glucose 194 mg/dl Hemoglobin A1c 8.4 4.5-5.6 % Test 07/29/17 16:00 Range/Units Bedside Glucose 142 70-90 mg/dl
[2017-07-29] MEDS ORDERED: ALBUT/IPRATROP 3MG/0.5MG NEB 3 ML VIAL INH PRN (17:30)
[2017-07-29] MEDS ORDERED: BENZONATATE 100MG CAP PO PRN (17:30)
[2017-07-29] MEDS ORDERED: NYSTATIN CR 15 GM TUBE EXT PRN (17:30)
[2017-07-29] MEDS ORDERED: FEXOFENADINE HCL 180 MG TAB PO PRN (17:30)
--- NOTE | 2017-07-29 19:34 | Infectious Disease Progress Nt ---
Progress Note Date of Service Jul 29, 2017. Subjective Pt evaluation today including: conversation w/ patient, physical exam, chart review, lab review, review of studies, conversation w/ help desk consultant, review of inpatient medication list Patient states she is feeling better. No fever. No abdominal or flank pain. Tolerating antibiotic without apparent difficulty. All Other Systems: Reviewed and Negative Medications Current Inpatient Medications Medications (Trade) Dose Ordered Sig/Betsy Route Start Time Stop Time Status Last Admin Dose Admin Aspirin (Ecotrin Tab) 81 mg QAM PO 07/28/17 09:00 08/27/17 08:59 07/29/17 08:57 81 MG Atenolol (Tenormin Tab) 25 mg HS PO 07/27/17 21:00 08/26/17 20:59 07/28/17 21:26 25 MG Atorvastatin Calcium (Lipitor Tab) 40 mg HS PO 07/27/17 21:00 08/26/17 20:59 07/28/17 21:25 40 MG Docusate Sodium (coLACE CAP) 100 mg TID PRN PO 07/27/17 15:45 08/26/17 15:44 Escitalopram Oxalate (Lexapro Tab) 15 mg QAM PO 07/28/17 09:00 08/27/17 08:59 07/29/17 08:57 15 MG Furosemide (Lasix Tab) 20 mg BID PRN PO 07/27/17 15:45 08/26/17 15:44 07/28/17 08:19 20 MG Levothyroxine Sodium (Synthroid Tab) 88 mcg DAILYBB PO 07/28/17 06:30 08/27/17 06:59 07/29/17 06:35 88 MCG Levothyroxine Sodium (Synthroid Tab) 100 mcg DAILYBB PO 07/28/17 06:30 08/27/17 06:59 07/29/17 06:34 100 MCG Trazodone HCl (Desyrel Tab) 50 mg HS PO 07/27/17 21:00 08/26/17 20:59 07/28/17 21:24 50 MG Albuterol (Ventolin Hfa Inhaler) 2 puffs DAILY PRN INH 07/27/17 15:45 08/26/17 15:44 Pantoprazole Sodium (Protonix Tab) 40 mg QAM PO 07/28/17 09:00 08/27/17 08:59 07/29/17 08:57 40 MG Albuterol/ Ipratropium (Duoneb) 3 ml QIDR INH 07/27/17 16:00 08/26/17 15:59 07/29/17 15:12 3 ML Enoxaparin Sodium (Lovenox Inj) 40 mg QAM SQ 07/28/17 09:00 08/27/17 08:59 07/29/17 08:58 40 MG Potassium Chloride (Klor-Con M10) 10 meq BID PO 07/27/17 21:00 08/26/17 20:59 07/29/17 09:24 10 MEQ Vancomycin HCl (Consult) 1 ea UD PRN N/A 07/28/17 12:45 08/27/17 12:44 Vancomycin HCl 1750 mg/Sodium Chloride 535 ml @ 200 mls/hr Q12H IV 07/29/17 02:00 08/11/17 01:59 07/29/17 14:03 200 MLS/HR Insulin Human Regular (novoLIN-R) SLIDING SCALE IF C... ACHS SC 07/28/17 16:30 08/27/17 16:29 07/29/17 18:22 4 UNITS Glucose (Glucose 40% Gel) 15-30 GRAMS 15 GRAMS... UD PRN PO 07/28/17 16:15 08/27/17 16:14 Glucose (Glucose Chew Tab) 4-8 Tablets 4 Tabl... UD PRN PO 07/28/17 16:15 08/27/17 16:14 Dextrose (Dextrose 50% 50ML Syringe) 25-50ML OF 50% DW IV FOR... UD PRN IV 07/28/17 16:15 08/27/17 16:14 Glucagon (Glucagon Inj) 1 mg UD PRN SQ 07/28/17 16:15 08/27/17 16:14 Benzonatate (Tessalon Perles Cap) 100 mg TID PRN PO 07/29/17 17:30 08/28/17 17:29 Cyclobenzaprine HCl (Flexeril Tab) 10 mg HS PO 07/29/17 21:00 08/28/17 20:59 Fexofenadine HCl (Danita Tab) 180 mg DAILY PRN PO 07/29/17 17:30 08/28/17 17:29 Gabapentin (Neurontin Tab) 600 mg HS PO 07/29/17 21:00 08/28/17 20:59 Gabapentin (Neurontin Cap) 300 mg BID@0900,1400 PO 07/30/17 09:00 08/29/17 08:59 Acetaminophen/ Hydrocodone Bitart ([place] 10/325 Tab) 1 tab BID PRN PO 07/29/17 17:30 08/12/17 17:29 Albuterol/ Ipratropium (Duoneb) 3 ml QID PRN INH 07/29/17 17:30 08/28/17 17:29 Multivitamins/ Minerals (Multivitamin W/ Minerals Tab) 1 tab QAM PO 07/30/17 09:00 08/29/17 08:59 Nystatin (Mycostatin Crm) 1 appln BID PRN EXT 07/29/17 17:30 08/28/17 17:29 Miscellaneous Information (Order Awaiting Action) 1 ea QS N/A 07/30/17 00:00 08/29/17 00:00 Objective Vital Signs Date Time Temp Pulse Resp B/P (MAP) Pulse Ox O2 Delivery O2 Flow Rate FiO2 07/29/17 15:20 Room Air 07/29/17 15:18 36.9 81 18 125/74 (91) 92 Room Air 07/29/17 15:14 80 16 91 Room Air 07/29/17 11:08 73 16 96 Room Air 07/29/17 09:51 Room Air 07/29/17 07:21 78 16 92 Room Air 07/29/17 07:06 36.9 68 20 133/80 (97) 95 Room Air 07/29/17 00:02 Room Air 07/28/17 23:26 37.1 76 18 95/60 (72) 94 Room Air 07/28/17 21:23 87 120/75 (90) Physical Exam General Appearance: WD/WN, no apparent distress Eyes: normal inspection, EOMI, sclerae normal ENT: normal ENT inspection, pharynx normal Neck: supple, no adenopathy, trachea midline Respiratory/Chest: chest non-tender, lungs clear, normal breath sounds, no respiratory distress Cardiovascular: regular rate, rhythm, no gallop, no murmur Abdomen: normal bowel sounds, non tender, soft, no organomegaly, + pertinent finding ( No CVAT) Extremities: non-tender, no calf tenderness Neurologic/Psychiatric: alert, oriented x 3 Skin: normal color, no rash Lymphatic: no adenopathy Laboratory Results Last 24 Hours Test 07/28/17 20:09 07/29/17 06:24 07/29/17 07:10 07/29/17 11:14 Bedside Glucose 156 mg/dl 129 mg/dl 176 mg/dl Creatinine 0.71 mg/dl Est Creatinine Clear Calc Drug Dose 97.1 ml/min Estimated GFR () 105.8 Estimated GFR (Non- 91.3 Estimated Average Glucose 194 mg/dl Hemoglobin A1c 8.4 % Test 07/29/17 16:00 Bedside Glucose 142 mg/dl Assessment and Plan 62-year-old female with MRSA bacteremia of unclear source, does not appear to be related to urinary tract infection given unremarkable urinalysis and abdominal CT findings. Patient be continued on IV vancomycin, likely 14 day course if no evidence deep-seated infection. Will follow.
[2017-07-29] MEDS: GABAPENTIN 600 MG TAB PO SCH (21:54)
[2017-07-29] MEDS: CYCLOBENZAPRINE HCL 10 MG TAB PO SCH (21:54)
[2017-07-29] MEDS: ATORVASTATIN 40 MG TAB PO SCH (21:57)
[2017-07-29] MEDS: HYDROCODONE/ACETAMI 10/325 TAB PO PRN (22:07)
[2017-07-29] MEDS: TRAZODONE HCL 50 MG TAB PO SCH (22:11)
[2017-07-30] MEDS: VANCOMYCIN INJ 1,750 MG in SODIUM CHLORIDE 0.9% 500ML 500 ML IV SCH ×2 (02:19→14:24)
[2017-07-30 06:20] LABS: CREATININE 0.7 mg/dl (0.60-1.20)
[2017-07-30] MEDS: LEVOTHYROXINE 88 MCG TAB PO SCH (06:39)
[2017-07-30] MEDS: LEVOTHYROXINE 100 MCG TAB PO SCH (06:39)
[2017-07-30] MEDS: ALBUT/IPRATROP 3MG/0.5MG NEB 3 ML VIAL INH SCH ×4 (06:57→19:23)
[2017-07-30 07:02] VITALS: BP 111/68; PULSE 55; PULSE 66; TEMP 36.7; O2SAT 93
[2017-07-30] MEDS: POTASSIUM CHLORIDE 10 MEQ TABCR PO SCH ×2 (07:44→21:49)
[2017-07-30] MEDS: PANTOprazole SOD 40 MG TAB PO SCH (07:45)
[2017-07-30] MEDS: CEROVITE ADV FORMULA TAB PO SCH (07:45)
[2017-07-30] MEDS: GABAPENTIN 300 MG CAP PO SCH ×3 (07:46→21:51)
[2017-07-30] MEDS: ASPIRIN 81 MG ECTAB PO SCH (07:49)
[2017-07-30] MEDS: ESCITALOPRAM OXALATE 10 MG TAB PO SCH (07:50)
[2017-07-30] MEDS: ENOXAPARIN 40 MG/0.4 ML SYR SQ SCH (07:51)
[2017-07-30] MEDS: INSULIN HUMAN REGULAR SC SCH ×4 (07:57→21:55)
[2017-07-30 11:16] VITALS: PULSE 72; O2SAT 94
--- NOTE | 2017-07-30 11:47 | Progress Note ---
Subjective Date of Service: Jul 30, 2017. Subjective Pt evaluation today including: conversation w/ patient, physical exam, chart review, lab review Voiding: nova catheter in place doing ok overall - continues to progress - no major complaints Problem List Medical Problems: (1) Abdominal pain Status: Acute (2) Bacteremia Status: Acute (3) Contusion of left hip Status: Acute (4) Contusion of left shoulder Status: Acute (5) Dehydration Status: Acute (6) Elevated troponin Status: Acute (7) Frequent falls Status: Acute (8) Hypoxia Status: Acute (9) Lactic acidosis Status: Acute (10) Left sided chest pain Status: Acute (11) UTI (urinary tract infection) Status: Acute (12) UTI (urinary tract infection) Status: Acute (13) Weakness Status: Acute Objective Vital Signs Date Time Temp Pulse Resp B/P (MAP) Pulse Ox O2 Delivery O2 Flow Rate FiO2 07/30/17 11:16 72 16 94 Room Air 07/30/17 08:00 Room Air 07/30/17 07:02 66 16 93 Room Air 07/30/17 07:02 36.7 55 20 111/68 (82) 93 CPAP 07/30/17 00:05 Room Air 07/29/17 23:29 37.3 81 18 144/81 (102) 94 Room Air 07/29/17 21:10 80 150/75 (100) 07/29/17 20:05 Room Air 07/29/17 19:10 84 16 93 Room Air 07/29/17 15:20 Room Air 07/29/17 15:18 36.9 81 18 125/74 (91) 92 Room Air 07/29/17 15:14 80 16 91 Room Air Physical Exam General Appearance: no apparent distress Eyes: normal inspection ENT: hearing grossly normal Neck: no adenopathy Respiratory/Chest: no respiratory distress Abdomen: soft Laboratory Results Last 24 Hours Test 07/29/17 16:00 07/29/17 19:59 07/30/17 05:25 07/30/17 06:59 Bedside Glucose 142 mg/dl 158 mg/dl 135 mg/dl Creatinine 0.70 mg/dl Est Creatinine Clear Calc Drug Dose 98.4 ml/min Estimated GFR () 107.6 Estimated GFR (Non- 92.9 Test 07/30/17 11:12 Bedside Glucose 174 mg/dl Assessment and Plan bacteremia; nonobstructing renal stone infection (uncertain source) cont abx as per ID team cont nova no indication for intervention at this stage
[2017-07-30] MEDS ORDERED: VANCOMYCIN TROUGH ONE (13:30)
[2017-07-30 14:38] VITALS: BP 108/66; PULSE 75; TEMP 36.9; O2SAT 93
--- NOTE | 2017-07-30 15:08 | Pharmacy Progress Note ---
Pharmacy Abx Dose Progress Nt Date of Service Jul 30, 2017. Pharmacy Dosing Scope The patient is currently receiving the following antimicrobial agents per Pharmacy consult: Vancomycin 1750 mg IV every 12 hours Objective Height (Feet): 4 Height (Inches): 11.00 Weight (Kilograms): 122.300 Vital Signs (Past 12Hrs) Vital Signs Past 12 Hours Date Time Temp Pulse Resp B/P (MAP) Pulse Ox O2 Delivery O2 Flow Rate FiO2 07/30/17 14:38 36.9 75 18 108/66 (80) 93 07/30/17 11:16 72 16 94 Room Air 07/30/17 08:00 Room Air 07/30/17 07:02 66 16 93 Room Air 07/30/17 07:02 36.7 55 20 111/68 (82) 93 CPAP Lab Results (24Hrs) Item Value Date Time Vancomycin Level Trough 17.3 mcg/ml 07/30/17 1348 Micro Results Date/Time Source Procedure Growth Status 07/27/17 13:00 Blood Blood Culture - Preliminary NO GROWTH TO DATE. Resulted 07/27/17 12:50 Blood Blood Culture - Preliminary NO GROWTH TO DATE. Resulted 07/27/17 17:00 Nasal MRSA DNA Surveillance Screen - Final Specimen Negative for MRSA by DNA Probe Complete 07/27/17 00:00 Urine,Catheterized Urine Culture - Final Rachelle Albicans Complete Risk Factors for Resistance * Resident in a detention or extended-care facility Assessment & Plan Assessment 62 year old female receiving Vancomycin for treatment of positive MRSA bacteremia from blood cultures on 07/25. Day # 4 of antimicrobial therapy. Plan Vancomycin IV * Trough level of 17.3 mcg/mL is therapeutic. * Continue dose of Vancomycin 1750 mg IV every 12 hours. * Goal trough level for bacteremia: 15 to 20 mcg/mL * Renal function remains stable. * Will re-check a trough level in 3 to 5 days if pt is still admitted. Pharmacy will continue to follow and will adjust dose/frequency as necessary. Thank you.
[2017-07-30 15:16] VITALS: PULSE 71; O2SAT 93
--- NOTE | 2017-07-30 18:39 | Progress Note ---
Internal Med Progress Note Date of Service: Jul 30, 2017. Provider Documentation: SUBJECTIVE: no fever or chills no complain of flank pain complains of tenderness on left upper arm PICC line site OBJECTIVE: Vital Signs-as noted below Exam: General-no apparent distress Eyes-sclera non icteric , PERRLA/EOMI ENT-moist oral mucosa, normal exam of oropharynx , hearing grossly normal Neck-no thyromegaly , trachea midline Lungs-diminished , no rales or wheeze Heart-regular S1/S2 Abdomen-soft, non tender Extremities-+ 1-2 bilateral lower ext edema Neuro-AAO x3, cerebral palsy , baseline lower ext weakness Lab data as noted below. ASSESSMENT & PLAN: MRSA BACTEREMIA : blood culture on 07/26/17 -at [facility] bottle -growth of gram positive cocci in Clusters MRSA Pt is continued with IV Vancomycin ID consulted , appreciate input repeat blood culture on admission -no growth ECHO -The study was technically limited. * Acoustic windows are poor and not adequate for evaluation of cardiac valves. ordered for PICC line for [facility] IV Abx /poor peripheral access will D/w ID regarding duration of Abx use FLANK PAIN /UTI : CT ABDOMEN /PELVIS : symptom has resolved No CT evidence of pyelonephritis However, interval passage of the punctate right renal calculus could explain the presence of mild urothelial thickening from inflammation/irritation of the recently passed stone. Xray of KUB : Slight fullness right renal collecting system and right ureter compared to the left. This may be an anatomic variant, with no definite obstructive process at the current time. appreciate Urology eval -non obstructive renal stone noted no urological intervention needed Cline will be discontinued on discharge /transfer to [facility] CEREBRAL PALSY : -minimally ambulatory and leg strength weaker than upper extremity strength ordered PT/OT CHRONIC BILATERAL LOWER EXT EDEMA /CHRONIC VENOUS STASIS -encourage leg elevation, wound care for dressings -Cont Lasix 20 mg for leg swelling HX OF CAD -continue home dosed aspirin and atenolol and atorvastatin HYPOTHYROIDISM -continue home dose Levothyroxine 188 mcg daily ASTHMA : no wheeze or rales -nebulizer/inhaler treatments as needed Mood disorder -continue home dose escitalopram and trazodone DVT ppx: moderate to high risk due to body habitus , non ambulatory status Lovenox 40 mg subq Full Code Status DISPOSITION return to [facility] for continued Rehab possible tomorrow Vital Signs: Date Time Temp Pulse Resp B/P (MAP) Pulse Ox O2 Delivery O2 Flow Rate FiO2 07/31/17 07:31 37.1 70 18 119/82 (94) 92 Room Air 07/31/17 07:20 70 16 94 Room Air 07/31/17 00:05 Room Air 07/30/17 23:34 37.1 71 18 121/70 (87) 93 Room Air 07/30/17 20:05 Room Air 07/30/17 19:23 81 16 94 Room Air 07/30/17 15:16 71 16 93 Room Air 07/30/17 15:15 Room Air 07/30/17 14:38 36.9 75 18 108/66 (80) 93 07/30/17 11:16 72 16 94 Room Air 07/30/17 08:00 Room Air Lab Results: Results Past 24 Hours Test 07/30/17 11:12 07/30/17 13:48 07/30/17 16:03 07/30/17 20:14 Range/Units Bedside Glucose 174 134 218 70-90 mg/dl Vancomycin Level Trough 17.3 SEE COMMENT mcg/ml Test 07/31/17 05:22 07/31/17 06:59 Range/Units Creatinine 0.70 0.60-1.20 mg/dl Est Creatinine Clear Calc Drug Dose 98.4 ml/min Estimated GFR () 107.6 Estimated GFR (Non- 92.9 Bedside Glucose 123 70-90 mg/dl
[2017-07-30 19:23] VITALS: PULSE 81; O2SAT 94
[2017-07-30] MEDS ORDERED: HYDR-4079 PO (19:36)
--- NOTE | 2017-07-30 19:37 | Discharge Instructions ---
Discharge Instructions Date of Service Jul 30, 2017. Admission Reason for Admission: UTI Discharge Discharge Diagnosis / Problem: MRSA BACTEREMIA /LUIS UTI Discharge Goals Goal(s): Decrease discomfort, Improve function, Increase independence, Improve disease control, Diagnostic testing Activity Recommendations Activity Level: Assistance Required Therapies: Physical Therapy, Occupational Therapy . Additional Information Patient informed of condition: Yes Advance Directives: No DNR: No Level of Care: Acute Rehab Communicable Disease: No Prognosis: Stable Young Catheter: Yes Instructions / Follow-Up Instructions / Follow-Up FOLLOW UP WITH PHYSICIAN AT [facility] LAB WORK : Vancomycin IV * Continue dose of Vancomycin 1750 mg IV every 12 hours-10 MORE DAYS * Goal trough level for bacteremia: 15 to 20 mcg/mL * Re-check a trough level/BUN/Cr level in 3 to 5 days * if Trough level and renal function remains stable - * Lab check :trough level /BUN/Cr level once a week , while on IV Vancomycin PICC LINE NEEDS TO BE TAKEN OUT AFTER IV ANTIBIOTIC IS COMPLETED KEEP YOUNG CATHETER UROLOGY FOLLOW UP WITH DR KING ON 08/09/17 -PT WILL HAVE VOIDING TRIAL AT UROLOGY OFFICE Current Hospital Diet Patient's current hospital diet: Diabetes Type 2 Diet Discharge Diet Recommended Diet: Diabetes Type 2 Diet Pending Studies Studies pending at discharge: no Laboratory Results Hemoglobin A1c Test 07/29/17 06:24 Range/Units Estimated Average Glucose 194 mg/dl Hemoglobin A1c 8.4 H 4.5-5.6 % Medical Emergencies . Who to Call and When: Medical Emergencies: If at any time you feel your situation is an emergency, please call 911 immediately. . Non-Emergent Contact Non-Emergency issues call your: Primary Care Provider . . "Provider Documentation" section prepared by Ledy Ocasio. . Core Measure Problem Core Measures: None
[2017-07-30] MEDS: TRAZODONE HCL 50 MG TAB PO SCH (21:49)
[2017-07-30] MEDS: CYCLOBENZAPRINE HCL 10 MG TAB PO SCH (21:49)
[2017-07-30] MEDS: ATORVASTATIN 40 MG TAB PO SCH (21:50)
[2017-07-30] MEDS: GABAPENTIN 600 MG TAB PO SCH (21:51)
[2017-07-30] MEDS: HYDROCODONE/ACETAMI 10/325 TAB PO PRN (21:59)
[2017-07-30 23:34] VITALS: BP 121/70; PULSE 71; TEMP 37.1; O2SAT 93
[2017-07-31] VITALS (8 sets, daily range): BP systolic 106–132; BP diastolic 63–82; PULSE 53–92; TEMP 36.8–37.3; O2SAT 92–95; Ht 149.9 cm; Wt 122.3 kg
[2017-07-31] MEDS: VANCOMYCIN INJ 1,750 MG in SODIUM CHLORIDE 0.9% 500ML 500 ML IV SCH ×2 (02:04→13:31)
[2017-07-31] MEDS: LEVOTHYROXINE 88 MCG TAB PO SCH (05:57)
[2017-07-31] MEDS: LEVOTHYROXINE 100 MCG TAB PO SCH (05:57)
[2017-07-31 06:16] LABS: CREATININE 0.7 mg/dl (0.60-1.20)
[2017-07-31] MEDS: ALBUT/IPRATROP 3MG/0.5MG NEB 3 ML VIAL INH SCH ×4 (07:20→19:59)
[2017-07-31] MEDS: INSULIN HUMAN REGULAR SC SCH ×4 (09:06→20:27)
[2017-07-31] MEDS: ASPIRIN 81 MG ECTAB PO SCH (09:07)
[2017-07-31] MEDS: ESCITALOPRAM OXALATE 10 MG TAB PO SCH (09:08)
[2017-07-31] MEDS: POTASSIUM CHLORIDE 10 MEQ TABCR PO SCH ×2 (09:08→20:20)
[2017-07-31] MEDS: CEROVITE ADV FORMULA TAB PO SCH (09:09)
[2017-07-31] MEDS: ENOXAPARIN 40 MG/0.4 ML SYR SQ SCH (09:10)
[2017-07-31] MEDS: PANTOprazole SOD 40 MG TAB PO SCH (09:10)
--- NOTE | 2017-07-31 11:27 | Progress Note ---
Subjective Date of Service: Jul 31, 2017. (Marie Cota CRNP) Subjective Pt evaluation today including: conversation w/ patient, chart review, lab review Voiding: nova catheter in place (patent, draining clear, yellow urine ) Pt denies abdominal pain this morning. C/o productive cough with yellow-white sputum and a headache this morning. Receiving neb tx while in the room this morning. UC&S growing Rachelle. (Marie Cota CRNP) Problem List Medical Problems: (1) Abdominal pain Status: Acute (2) Bacteremia Status: Acute (3) Contusion of left hip Status: Acute (4) Contusion of left shoulder Status: Acute (5) Dehydration Status: Acute (6) Elevated troponin Status: Acute (7) Frequent falls Status: Acute (8) Hypoxia Status: Acute (9) Lactic acidosis Status: Acute (10) Left sided chest pain Status: Acute (11) UTI (urinary tract infection) Status: Acute (12) UTI (urinary tract infection) Status: Acute (13) Weakness Status: Acute (Marie Cota CRNP) Review of Systems Constitutional: + problem reported (headache), No fever, No chills Respiratory: + see HPI, + cough, No shortness of breath Cardiac: No chest pain Abdomen: No pain, No nausea, No vomiting Female : No hematuria Heme: No abnormal bleeding/bruising (Marie Cota CRNP) Objective Vital Signs Date Time Temp Pulse Resp B/P (MAP) Pulse Ox O2 Delivery O2 Flow Rate FiO2 07/31/17 11:11 79 16 93 Room Air 07/31/17 09:15 Room Air 07/31/17 07:31 37.1 70 18 119/82 (94) 92 Room Air 07/31/17 07:20 70 16 94 Room Air 07/31/17 00:05 Room Air 07/30/17 23:34 37.1 71 18 121/70 (87) 93 Room Air 07/30/17 20:05 Room Air 07/30/17 19:23 81 16 94 Room Air 07/30/17 15:16 71 16 93 Room Air 07/30/17 15:15 Room Air 07/30/17 14:38 36.9 75 18 108/66 (80) 93 (Marie Cota CRNP) Physical Exam General Appearance: no apparent distress, + obese (morbidly) Eyes: normal inspection ENT: hearing grossly normal Neck: no JVD Respiratory/Chest: no respiratory distress, no accessory muscle use Cardiovascular: no JVD Extremities: normal inspection Neurologic/Psychiatric: alert, normal mood/affect, oriented x 3 Skin: normal color (Marie Cota CRNP) Laboratory Results Last 24 Hours Test 07/30/17 13:48 07/30/17 16:03 07/30/17 20:14 07/31/17 05:22 Vancomycin Level Trough 17.3 mcg/ml Bedside Glucose 134 mg/dl 218 mg/dl Creatinine 0.70 mg/dl Est Creatinine Clear Calc Drug Dose 98.4 ml/min Estimated GFR () 107.6 Estimated GFR (Non- 92.9 Test 07/31/17 06:59 Bedside Glucose 123 mg/dl (Marie Cota CRNP) Assessment and Plan A/P: UTI, right hydro, nephrolithiasis AFVSS. Abx per ID. Consider adding Diflucan for Rachelle growing in urine. No ureteral stones seen on CT. No hydroneprhosis. Will avoid surgical intervention at this time. Will plan to leave nova catheter in place for now. No further intervention at this time. Recall PRN issues. Will arrange for outpatient f/u with Dr. Escobar in 1 week. Possible trial of void at that time. (Marie Cota CRNP)
[2017-07-31] MEDS: GABAPENTIN 300 MG CAP PO SCH (13:31)
[2017-07-31] MEDS ORDERED: VANC1INJ94 IV (13:50)
[2017-07-31] MEDS ORDERED: DFL50 PO (13:50)
--- NOTE | 2017-07-31 14:02 | Progress Note ---
Progress Note Date of Service Jul 31, 2017. Progress Note ATTENDING ADDENDUM : D/w ID -pt will need total 2 weeks of IV Vancomycin for MRSA bacteremia has PICC line received # 4/ days of IV Vancomycin appreciate input form Urology PO Diflucan 150 mg PO daily for 1 week for Rachelle UTI keep Cline Catheter in ; out pt voiding trail in a week with Urology will be transferred to [facility] today needs transport arrangement
[2017-07-31] MEDS: FLUCONAZOLE 50 MG TAB PO SCH (14:29)
--- NOTE | 2017-07-31 16:04 | Progress Note ---
Internal Med Progress Note Date of Service: Jul 31, 2017. Provider Documentation: SUBJECTIVE: pt sitting up on chair , feels fine denies of any discomfort no fever or chills had a lot of questions regarding her UTI , Cline management and PICC line all questions answered medically stable to be transferred to [facility] for continued rehab waiting for insurance Auth OBJECTIVE: Vital Signs-as noted below Exam: General-no apparent distress Eyes-sclera non icteric , PERRLA/EOMI ENT-moist oral mucosa, normal exam of oropharynx , hearing grossly normal Neck-no thyromegaly , trachea midline Lungs-diminished , no rales or wheeze Heart-regular S1/S2 Abdomen-soft, non tender Extremities-+ 1-2 bilateral lower ext edema Neuro-AAO x3, cerebral palsy , baseline lower ext weakness Lab data as noted below. ASSESSMENT & PLAN: MRSA BACTEREMIA : blood culture on 07/26/17 -at [facility] bottle -growth of gram positive cocci in Clusters MRSA repeat blood culture on admission -no growth Pt is continued with IV Vancomycin ordered for PICC line for senior living IV Abx /poor peripheral access ID consulted , appreciate input -will need total 2 weeks of IV Vancomycin currently on day # 4 /14 pt will need periodic blood draw to check Vanco trough level and renal function -while at [facility] ECHO -The study was technically limited. * Acoustic windows are poor and not adequate for evaluation of cardiac valves. FLANK PAIN /LUIS UTI : CT ABDOMEN /PELVIS : symptom has resolved No CT evidence of pyelonephritis However, interval passage of the punctate right renal calculus could explain the presence of mild urothelial thickening from inflammation/irritation of the recently passed stone. Xray of KUB : Slight fullness right renal collecting system and right ureter compared to the left. This may be an anatomic variant, with no definite obstructive process at the current time. appreciate Urology eval -non obstructive renal stone noted no urological intervention needed Urine culture -Luis Albicans pt started on PO Diflucan complete 7 days course per Urology -pt will be continued with Cline Catheter out pt follow up at Urology appointment scheduled for 08/09/17 for voiding trial CEREBRAL PALSY : -minimally ambulatory and leg strength weaker than upper extremity strength worsening of functional status due to acute illness appreciate PT/OT eval not safe to return home recommend return to [facility] for continued Rehab CHRONIC BILATERAL LOWER EXT EDEMA /CHRONIC VENOUS STASIS -encourage leg elevation, -Cont Lasix 20 mg for leg swelling HX OF CAD -continue home dosed aspirin and atenolol and atorvastatin HYPOTHYROIDISM -continue home dose Levothyroxine 188 mcg daily ASTHMA : no wheeze or rales -nebulizer/inhaler treatments as needed Mood disorder -continue home dose escitalopram and trazodone DVT ppx: moderate to high risk due to body habitus , non ambulatory status Lovenox 40 mg subq Full Code Status DISPOSITION Medically stable to return to [facility] for continued Rehab waiting for insurance Auth pt will need transport arrangement -wheel chair van Vital Signs: Date Time Temp Pulse Resp B/P (MAP) Pulse Ox O2 Delivery O2 Flow Rate FiO2 07/31/17 15:07 37.3 53 18 106/63 (77) 92 Room Air 07/31/17 14:47 87 16 95 Room Air 07/31/17 11:11 79 16 93 Room Air 07/31/17 09:15 Room Air 07/31/17 07:31 37.1 70 18 119/82 (94) 92 Room Air 07/31/17 07:20 70 16 94 Room Air 07/31/17 00:05 Room Air 07/30/17 23:34 37.1 71 18 121/70 (87) 93 Room Air 07/30/17 20:05 Room Air 07/30/17 19:23 81 16 94 Room Air Lab Results: Results Past 24 Hours Test 07/30/17 20:14 07/31/17 05:22 07/31/17 06:59 07/31/17 11:27 Range/Units Bedside Glucose 218 123 128 70-90 mg/dl Creatinine 0.70 0.60-1.20 mg/dl Est Creatinine Clear Calc Drug Dose 98.4 ml/min Estimated GFR () 107.6 Estimated GFR (Non- 92.9
--- NOTE | 2017-07-31 20:14 | Infectious Disease Progress Nt ---
Progress Note Date of Service Jul 31, 2017. Subjective Pt evaluation today including: conversation w/ patient, physical exam, chart review, lab review, review of studies, conversation w/ home service consultant, review of inpatient medication list patient offers no new specific complaints today. Remains afebrile. Tolerating vancomycin without apparent difficulty. All Other Systems: Reviewed and Negative Medications Current Inpatient Medications Medications (Trade) Dose Ordered Sig/Betsy Route Start Time Stop Time Status Last Admin Dose Admin Aspirin (Ecotrin Tab) 81 mg QAM PO 07/28/17 09:00 08/27/17 08:59 07/31/17 09:07 81 MG Atenolol (Tenormin Tab) 25 mg HS PO 07/27/17 21:00 08/26/17 20:59 07/30/17 21:47 25 MG Atorvastatin Calcium (Lipitor Tab) 40 mg HS PO 07/27/17 21:00 08/26/17 20:59 07/30/17 21:50 40 MG Docusate Sodium (coLACE CAP) 100 mg TID PRN PO 07/27/17 15:45 08/26/17 15:44 Escitalopram Oxalate (Lexapro Tab) 15 mg QAM PO 07/28/17 09:00 08/27/17 08:59 07/31/17 09:08 15 MG Furosemide (Lasix Tab) 20 mg BID PRN PO 07/27/17 15:45 08/26/17 15:44 07/28/17 08:19 20 MG Levothyroxine Sodium (Synthroid Tab) 88 mcg DAILYBB PO 07/28/17 06:30 08/27/17 06:59 07/31/17 05:57 88 MCG Levothyroxine Sodium (Synthroid Tab) 100 mcg DAILYBB PO 07/28/17 06:30 08/27/17 06:59 07/31/17 05:57 100 MCG Trazodone HCl (Desyrel Tab) 50 mg HS PO 07/27/17 21:00 08/26/17 20:59 07/30/17 21:49 50 MG Albuterol (Ventolin Hfa Inhaler) 2 puffs DAILY PRN INH 07/27/17 15:45 08/26/17 15:44 Pantoprazole Sodium (Protonix Tab) 40 mg QAM PO 07/28/17 09:00 08/27/17 08:59 07/31/17 09:10 40 MG Albuterol/ Ipratropium (Duoneb) 3 ml QIDR INH 07/27/17 16:00 08/26/17 15:59 07/31/17 19:59 3 ML Enoxaparin Sodium (Lovenox Inj) 40 mg QAM SQ 07/28/17 09:00 08/27/17 08:59 07/31/17 09:10 40 MG Potassium Chloride (Klor-Con M10) 10 meq BID PO 07/27/17 21:00 08/26/17 20:59 07/31/17 09:08 10 MEQ Vancomycin HCl (Consult) 1 ea UD PRN N/A 07/28/17 12:45 08/27/17 12:44 Vancomycin HCl 1750 mg/Sodium Chloride 535 ml @ 200 mls/hr Q12H IV 07/29/17 02:00 08/11/17 01:59 07/31/17 13:31 200 MLS/HR Insulin Human Regular (novoLIN-R) SLIDING SCALE IF C... ACHS SC 07/28/17 16:30 08/27/17 16:29 07/31/17 17:23 2 UNITS Glucose (Glucose 40% Gel) 15-30 GRAMS 15 GRAMS... UD PRN PO 07/28/17 16:15 08/27/17 16:14 Glucose (Glucose Chew Tab) 4-8 Tablets 4 Tabl... UD PRN PO 07/28/17 16:15 08/27/17 16:14 Dextrose (Dextrose 50% 50ML Syringe) 25-50ML OF 50% DW IV FOR... UD PRN IV 07/28/17 16:15 08/27/17 16:14 Glucagon (Glucagon Inj) 1 mg UD PRN SQ 07/28/17 16:15 08/27/17 16:14 Benzonatate (Tessalon Perles Cap) 100 mg TID PRN PO 07/29/17 17:30 08/28/17 17:29 07/30/17 07:45 100 MG Cyclobenzaprine HCl (Flexeril Tab) 10 mg HS PO 07/29/17 21:00 08/28/17 20:59 07/30/17 21:49 10 MG Fexofenadine HCl (Danita Tab) 180 mg DAILY PRN PO 07/29/17 17:30 08/28/17 17:29 Gabapentin (Neurontin Tab) 600 mg HS PO 07/29/17 21:00 08/28/17 20:59 07/30/17 21:51 600 MG Gabapentin (Neurontin Cap) 300 mg BID@0900,1400 PO 07/30/17 09:00 08/29/17 08:59 07/31/17 13:31 300 MG Acetaminophen/ Hydrocodone Bitart ([place] 10/325 Tab) 1 tab BID PRN PO 07/29/17 17:30 08/12/17 17:29 07/30/17 21:59 1 TAB Albuterol/ Ipratropium (Duoneb) 3 ml QID PRN INH 07/29/17 17:30 08/28/17 17:29 Multivitamins/ Minerals (Multivitamin W/ Minerals Tab) 1 tab QAM PO 07/30/17 09:00 08/29/17 08:59 07/31/17 09:09 1 TAB Nystatin (Mycostatin Crm) 1 appln BID PRN EXT 07/29/17 17:30 08/28/17 17:29 Miscellaneous Information (Order Awaiting Action) 1 ea QS N/A 07/30/17 00:00 08/29/17 00:00 Heparin Sodium (Porcine) (Heparin 10 Unit/ ml 5 ml Flush) 5 ml PRN PRN FLUSH 07/29/17 20:30 08/28/17 20:29 07/31/17 16:19 5 ML Fluconazole (Diflucan Tab) 150 mg QAM PO 07/31/17 13:45 08/05/17 13:44 07/31/17 14:29 150 MG Objective Vital Signs Date Time Temp Pulse Resp B/P (MAP) Pulse Ox O2 Delivery O2 Flow Rate FiO2 07/31/17 19:59 81 16 94 Room Air 07/31/17 15:55 Room Air 07/31/17 15:07 37.3 53 18 106/63 (77) 92 Room Air 07/31/17 14:47 87 16 95 Room Air 07/31/17 11:11 79 16 93 Room Air 07/31/17 09:15 Room Air 07/31/17 07:31 37.1 70 18 119/82 (94) 92 Room Air 07/31/17 07:20 70 16 94 Room Air 07/31/17 00:05 Room Air 07/30/17 23:34 37.1 71 18 121/70 (87) 93 Room Air Physical Exam General Appearance: WD/WN, no apparent distress Eyes: normal inspection, EOMI, sclerae normal ENT: normal ENT inspection, pharynx normal Neck: supple, no adenopathy, trachea midline Respiratory/Chest: chest non-tender, lungs clear, normal breath sounds, no respiratory distress Cardiovascular: regular rate, rhythm, no gallop, no murmur Abdomen: normal bowel sounds, non tender, soft, no organomegaly Extremities: non-tender, no calf tenderness Neurologic/Psychiatric: alert, oriented x 3 Skin: normal color, warm/dry, no rash Lymphatic: no adenopathy Laboratory Results Last 24 Hours Test 07/31/17 05:22 07/31/17 06:59 07/31/17 11:27 07/31/17 16:29 Creatinine 0.70 mg/dl Est Creatinine Clear Calc Drug Dose 98.4 ml/min Estimated GFR () 107.6 Estimated GFR (Non- 92.9 Bedside Glucose 123 mg/dl 128 mg/dl 132 mg/dl Assessment and Plan 62-year-old female with MRSA bacteremia of unclear source, does not appear to be related to urinary tract infection given unremarkable urinalysis and abdominal CT findings. Patient be continued on IV vancomycin, likely 14 day course if no evidence deep-seated infection. Will follow.
[2017-07-31] MEDS: TRAZODONE HCL 50 MG TAB PO SCH (20:19)
[2017-07-31] MEDS: ATORVASTATIN 40 MG TAB PO SCH (20:19)
[2017-07-31] MEDS: CYCLOBENZAPRINE HCL 10 MG TAB PO SCH (20:19)
[2017-07-31] MEDS: GABAPENTIN 600 MG TAB PO SCH (20:21)
[2017-08-01] MEDS: VANCOMYCIN INJ 1,750 MG in SODIUM CHLORIDE 0.9% 500ML 500 ML IV SCH (02:12)
[2017-08-01] MEDS: LEVOTHYROXINE 88 MCG TAB PO SCH (05:40)
[2017-08-01] MEDS: LEVOTHYROXINE 100 MCG TAB PO SCH (05:40)
[2017-08-01 07:05] VITALS: PULSE 70; O2SAT 95
[2017-08-01] MEDS: ALBUT/IPRATROP 3MG/0.5MG NEB 3 ML VIAL INH SCH (07:32)
[2017-08-01 07:53] VITALS: BP 127/79; PULSE 70; TEMP 36.8; O2SAT 95
[2017-08-01] MEDS: ESCITALOPRAM OXALATE 10 MG TAB PO SCH (08:12)
[2017-08-01] MEDS: ASPIRIN 81 MG ECTAB PO SCH (08:12)
[2017-08-01] MEDS: INSULIN HUMAN REGULAR SC SCH ×2 (08:14→12:06)
[2017-08-01] MEDS: CEROVITE ADV FORMULA TAB PO SCH (08:15)
[2017-08-01] MEDS: PANTOprazole SOD 40 MG TAB PO SCH (08:15)
[2017-08-01] MEDS: POTASSIUM CHLORIDE 10 MEQ TABCR PO SCH (08:16)
[2017-08-01] MEDS: FLUCONAZOLE 50 MG TAB PO SCH (08:17)
[2017-08-01] MEDS: GABAPENTIN 300 MG CAP PO SCH (08:18)
[2017-08-01] MEDS: ENOXAPARIN 40 MG/0.4 ML SYR SQ SCH (08:19)
[2017-08-01 10:20] VITALS: BP 127/79; PULSE 70; TEMP 36.8; O2SAT 95
--- NOTE | 2017-08-01 11:52 | Progress Note ---
Internal Med Progress Note Date of Service: Aug 01, 2017. Provider Documentation: SUBJECTIVE: Seen and examined at bedside Doing well today Planned for being discharged to [facility] today Denies any chest pain, SOB, dizziness OBJECTIVE: Vital Signs-as noted below Physical Exam: General Appearance:Obese, no apparent distress Head: normocephalic, Atraumatic Eyes: normal inspection, EOMI, PERRL Neck: supple, Trachea midline Respiratory/Chest: Normal breath sounds, CTA Cardiovascular: S1, S2, No murmur Abdomen/GI:Soft, Non tender, Bowel sounds present Extremities/Musculoskelatal:normal inspection, 1+ edema Neurologic/Psych:AAOX3, + Cerebral Palsy, chronic leg weakness Skin: normal color, warm Lab data as noted below. ASSESSMENT & PLAN: MRSA Bacteremia : blood culture on 07/26/17 -at [employer] Ana[facility] bottle -growth of gram positive cocci in Clusters MRSA repeat blood culture on 07/27: no growth Continue IV Vancomycin per ID Has PICC line in place Appreciate ID Input currently on day # 5 /14 Needs to get Vanco trough level and renal function checked while at [facility] Flank Pain/Rachelle UTI: CT ABDOMEN /PELVIS : symptom has resolved No CT evidence of pyelonephritis However, interval passage of the punctate right renal calculus could explain the presence of mild urothelial thickening from inflammation/irritation of the recently passed stone. appreciate Urology eval:non obstructive renal stone noted no urological intervention needed Needs Urology follow up as outpatient Urine culture: Rachelle Albicans Plan to treat with PO Diflucan for 7 days per Urology -pt will be continued with Cline Catheter out pt follow up at Urology appointment scheduled for 08/09/17 for voiding trial Cerebral Palsy: minimally ambulatory and leg strength weaker than upper extremity strength appreciate PT/OT eval not safe to return home recommend return to [facility] for continued Rehab Chronic B/L LE edema/Chronic Venous stasis: encourage leg elevation, Continue Lasix 20 mg for leg swelling H/O CAD continue aspirin, BB, atorvastatin HYPOTHYROIDISM continue Levothyroxine ASTHMA : no signs of exacerbation nebs as needed Mood disorder continue escitalopram and trazodone DVT px: Lovenox SQ Code Status: Full Code DISPOSITION Plan to discharge to [facility] today Vital Signs: Date Time Temp Pulse Resp B/P (MAP) Pulse Ox O2 Delivery O2 Flow Rate FiO2 08/01/17 10:20 36.8 70 18 95 Room Air 08/01/17 07:53 36.8 70 18 127/79 (95) 95 CPAP 08/01/17 07:40 Room Air 08/01/17 07:05 70 16 95 Room Air 08/01/17 00:00 CPAP 2.0 07/31/17 23:50 36.8 76 18 123/74 (90) 93 Room Air 07/31/17 20:13 92 132/80 (97) 07/31/17 19:59 81 16 94 Room Air 07/31/17 15:55 Room Air 07/31/17 15:07 37.3 53 18 106/63 (77) 92 Room Air 07/31/17 14:47 87 16 95 Room Air Lab Results: Results Past 24 Hours Test 07/31/17 16:29 07/31/17 20:02 08/01/17 07:31 Range/Units Bedside Glucose 132 158 133 70-90 mg/dl
--- NOTE | 2017-08-01 11:53 | Discharge Summary ---
Discharge Summary Date of Service Aug 01, 2017. Discharge Summary Admission Date: Jul 27, 2017 at 15:23 Discharge Date: Jul 31, 2017 Discharge Disposition: Rehab Principal Diagnosis: MRSA BACTEREMIA /LUIS UTI Procedures: CT ABD: 1. No CT evidence of pyelonephritis, which does not exclude the diagnosis. However, interval passage of the punctate right renal calculus could explain the presence of mild urothelial thickening from inflammation/irritation of the recently passed stone. 2. Mild right pelvocaliectasis. No convincing evidence of hydronephrosis. No ureteral obstruction. 3. Nonspecific bilateral external lymphadenopathy with scattered smaller retroperitoneal lymph nodes. Prominent lymph nodes have been visualized since 2009, although there may be minimal interval increase in size. These may be reactive. 4. Cirrhosis with portal hypertension evidenced by splenomegaly. Consultations: ID, Urology Pending Studies/Follow-Up: FOLLOW UP WITH PHYSICIAN AT [facility] WORK : Vancomycin IV * Continue dose of Vancomycin 1750 mg IV every 12 hours-10 MORE DAYS * Goal trough level for bacteremia: 15 to 20 mcg/mL * Re-check a trough level/BUN/Cr level in 3 to 5 days * if Trough level and renal function remains stable - * Lab check :trough level /BUN/Cr level once a week , while on IV Vancomycin PICC LINE NEEDS TO BE TAKEN OUT AFTER IV ANTIBIOTIC IS COMPLETED KEEP YOUNG CATHETER UROLOGY FOLLOW UP WITH DR KING ON 08/09/17 -PT WILL HAVE VOIDING TRIAL AT UROLOGY OFFICE Medication Reconciliation New Medications: Vancomycin HCl in Sodium Chlor (VANCOMYCIN in NSS) 1 Inj Inj 1750 MG IV Q12 for 10 Days, BAG MRSA BACTEREMIA Fluconazole (Fluconazole) 50 Mg Tab 150 MG PO QAM for 7 Days, #21 TAB LUIS UTI Continued Medications: Albuterol Sulfate (Proair Respiclick) 108 Mcg/Act Aer 2 PUFFS INH PRN PRN for SOB/Wheezing Aspirin (Aspirin Ec) 81 Mg Tab 81 MG PO QAM Atenolol (Tenormin) 25 Mg Tab 25 MG PO HS, TAB Atorvastatin (Atorvastatin Calcium) 40 Mg Tab 40 MG PO HS Azelastine Hcl (Astelin Nasal [place]) 200 Sprays/30 Ml [place] 2 SPRAYS NA BID, BTL Benzonatate (Benzonatate) 100 Mg Cap 100 MG PO TID PRN for Cough, #30 Biotin (Biotin) 1 Mg Cap 1 CAP PO QAM Cyclobenzaprine Hcl (Flexeril) 10 Mg Tab 10 MG PO HS, TAB Docusate Sodium (Colace) 100 Mg Cap 1 CAP PO TID PRN for Constipation, CAP Escitalopram Oxalate (Escitalopram Oxalate) 10 Mg Tab 15 MG PO QAM for 30 Days, #45 TAB Take 1.5 tab by mouth every day Fexofenadine Hcl (Danita) 180 Mg Tab 180 MG PO DAILY PRN for Allergies, TAB Furosemide (Lasix) 20 Mg Tab 20 MG PO BID PRN for Edema, TAB Gabapentin (Neurontin) 300 Mg Cap 300 MG PO BID, CAP Take 1 tab (300 mg) by mouth in morning and midday, then 2 tabs (600 mg) in PM. Gabapentin (Gabapentin) 300 Mg Cap 600 MG PO HS Hydrocodone/Acetaminophen 10MG/325MG ([place] 10MG/325MG) Tab 1 TAB PO BID PRN for Pain, #14 TAB (This prescription has been renewed) PRN PAIN Ipratropium-Albuterol (Duoneb) 3 Ml Nebu 1 TREATMENT INH QID PRN for SOB/Wheezing, INHA Levothyroxine Sodium (Levothyroxine Sodium) 88 Mcg Tab 1 TAB PO DAILYBB TAKE WITH 100MCG TAB Levothyroxine Sodium (Levothyroxine Sodium) 100 Mcg Tab 1 TAB PO DAILYBB TAKE WITH 88MCG TAB Metformin Hcl (Glucophage) 1,000 Mg Tab 1000 MG PO BID, TAB Multiple Vitamins W/ Minerals (Centrum Silver Adult 50+) 1 Tab Tab 1 TAB PO QAM Nystatin (Nystatin Cream) 90 Appln/30 Gm Cr 0 EXT BID PRN for rash, #15 GM APPLY TO AFFECTED AREA BID Omeprazole (Prilosec) 20 Mg Capcr 20 MG PO QAM, CAP Potassium Chloride (Potassium Chloride Cr) 10 Meq Tab 1 TAB PO BID Trazodone Hcl (Trazodone) 50 Mg Tab 50 MG PO HS, TAB Admission Information HPI (per Admitting provider): This is a 62 year old F with history of cerebral palsy who resides at [facility] with June hospital admission for right sided flank pain / right renal calculus/ mild right-sided hydroureteronephrosis for which patient was treated empirically with ciprofloxacin and patient was then discharged with follow up to [facility]. Patient last seen [facility] Dr. Escobar on 07/19/2017. As per ER physician, patient is back from [facility] because of positive cultures and also with fever 2 days ago at [facility] which was reportedly to be 103 F and that patient has been on Levquin the past 2 days. On presentation to the ED, patient is afebrile. She has baseline minimal mobility and chronic lower extremity swelling in leg dressings. Reports pain with urination but no acute abdominal pain. Patient also has a young in the ED. She denies having a young at [facility]. In the ED patient was given empirically vancomycin, cefepime, and flagyl. Patient also reports allergies to penicillin specifically which leads to rash. CT abdomen in the ED again showing mild right hydronephrosis and no obstructing calculi. Because of the history of cerebral palsy, patient is minimally ambulatory and leg strength weaker than upper extremity strength Physical Exam (per Admitting): General Appearance: WD/WN, no apparent distress Head: normocephalic, atraumatic Eyes: normal inspection, EOMI, sclerae normal ENT: normal ENT inspection, hearing grossly normal, TMs normal, pharynx normal Neck: no JVD, trachea midline Respiratory/Chest: chest non-tender, lungs clear, normal breath sounds, no respiratory distress, no accessory muscle use, + wheezing (mild expiratory wheeze) Cardiovascular: regular rate, rhythm, no JVD Abdomen/GI: normal bowel sounds, non tender, soft Genitourinary - Female: + pertinent finding (young) Back: normal inspection, no muscle spasm Extremities/Musculoskelatal: no calf tenderness, + swelling (swelling of bilateral lower extremities in dressings) Neurologic/Psych: alert, normal mood/affect, oriented x 3, + pertinent finding (patient has difficulty with raising legs above the bed) Skin: normal color, warm/dry, no rash Hospital Course MRSA Bacteremia : blood culture on 07/26/17 -at [employer] Anaerobic bottle -growth of gram positive cocci in Clusters MRSA repeat blood culture on 07/27: no growth Continue IV Vancomycin per ID Has PICC line in place Appreciate ID Input currently on day # 5 /14 Needs to get Vanco trough level and renal function checked while at [facility] Flank Pain/Luis UTI: CT ABDOMEN /PELVIS : symptom has resolved No CT evidence of pyelonephritis However, interval passage of the punctate right renal calculus could explain the presence of mild urothelial thickening from inflammation/irritation of the recently passed stone. appreciate Urology eval:non obstructive renal stone noted no urological intervention needed Needs Urology follow up as outpatient Urine culture: Luis Albicans Plan to treat with PO Diflucan for 7 days per Urology -pt will be continued with Young Catheter out pt follow up at Urology appointment scheduled for 08/09/17 for voiding trial Cerebral Palsy: minimally ambulatory and leg strength weaker than upper extremity strength appreciate PT/OT eval not safe to return home recommend return to [facility] for continued Rehab Chronic B/L LE edema/Chronic Venous stasis: encourage leg elevation, Continue Lasix 20 mg for leg swelling H/O CAD continue aspirin, BB, atorvastatin HYPOTHYROIDISM continue Levothyroxine ASTHMA : no signs of exacerbation nebs as needed Mood disorder continue escitalopram and trazodone DVT px: Lovenox SQ Code Status: Full Code DISPOSITION Plan to discharge to [facility] today Total time spent on discharge = 34 minutes This includes examination of the patient, discharge planning, medication reconciliation, and communication with other providers. Discharge Instructions Discharge Instructions Date of Service Jul 30, 2017. Admission Reason for Admission: UTI Discharge Discharge Diagnosis / Problem: MRSA BACTEREMIA /LUIS UTI Discharge Goals Goal(s): Decrease discomfort, Improve function, Increase independence, Improve disease control, Diagnostic testing Activity Recommendations Activity Level: Assistance Required Therapies: Physical Therapy, Occupational Therapy . Additional Information Patient informed of condition: Yes Advance Directives: No DNR: No Level of Care: Acute Rehab Communicable Disease: No Prognosis: Stable Young Catheter: Yes Instructions / Follow-Up Instructions / Follow-Up FOLLOW UP WITH PHYSICIAN AT [facility] WORK : Vancomycin IV * Continue dose of Vancomycin 1750 mg IV every 12 hours-10 MORE DAYS * Goal trough level for bacteremia: 15 to 20 mcg/mL * Re-check a trough level/BUN/Cr level in 3 to 5 days * if Trough level and renal function remains stable - * Lab check :trough level /BUN/Cr level once a week , while on IV Vancomycin PICC LINE NEEDS TO BE TAKEN OUT AFTER IV ANTIBIOTIC IS COMPLETED KEEP YOUNG CATHETER UROLOGY FOLLOW UP WITH DR KING ON 08/09/17 -PT WILL HAVE VOIDING TRIAL AT UROLOGY OFFICE Current Hospital Diet Patient's current hospital diet: Diabetes Type 2 Diet Discharge Diet Recommended Diet: Diabetes Type 2 Diet Pending Studies Studies pending at discharge: no Laboratory Results Hemoglobin A1c Test 07/29/17 06:24 Range/Units Estimated Average Glucose 194 mg/dl Hemoglobin A1c 8.4 H 4.5-5.6 % Medical Emergencies . Who to Call and When: Medical Emergencies: If at any time you feel your situation is an emergency, please call 911 immediately. . Non-Emergent Contact Non-Emergency issues call your: Primary Care Provider . . "Provider Documentation" section prepared by Ledy Ocasio. . Core Measure Problem Core Measures: None
[2017-08-01] MEDS ORDERED: IPRATROPIUM BROMIDE/ALBUTEROL respimat INH INH SCH (13:00)
== END 2017-08-01 13:50 | DRG 872 ==
LOC: EDBD 11:24 → C.EDB 11:25 → C.MS2W 15:23 → ENRESERV 15:33
PROVIDERS: ADMIT Hospitalist; ATTEND Internal Medicine
PROC: 0T9B70Z Drainage of Bladder with Drainage Device, Via Natural or Artificial Opening (ICD-10-PCS; principal; 2017-07-27)
PROC: 02HV33Z Insertion of Infusion Device into Superior Vena Cava, Percutaneous Approach (ICD-10-PCS; 2017-07-29)
DX: R78.81 Bacteremia (principal); B37.49 Other urogenital candidiasis; B95.62 Methicillin resistant Staphylococcus aureus infection as the cause of diseases classified elsewhere; N20.0 Calculus of kidney; G80.9 Cerebral palsy, unspecified; I87.8 Other specified disorders of veins; M79.89 Other specified soft tissue disorders; I25.10 Atherosclerotic heart disease of native coronary artery without angina pectoris; E03.9 Hypothyroidism, unspecified; J45.909 Unspecified asthma, uncomplicated; F39 Unspecified mood [affective] disorder; Z87.440 Personal history of urinary (tract) infections; Z87.442 Personal history of urinary calculi; Z79.82 Long term (current) use of aspirin; Z79.84 Long term (current) use of oral hypoglycemic drugs; Z79.899 Other long term (current) drug therapy; Z88.0 Allergy status to penicillin; Z82.49 Family history of ischemic heart disease and other diseases of the circulatory system

== ENCOUNTER 2017-09-14 14:52 | Inpatient (IN) | payer BC, OTHER ==
[~2017-09-14] VITALS: Ht 149.9 cm; Wt 117.2 kg
[~2017-09-14 14:52] MED LIST changes: +DFL50 PO; +VANC1INJ94 IV
[2017-09-14] MEDS ORDERED: MoRPHine SULFATE 4 MG/ML 1 ML CARP\\VIAL IV STA (15:11)
--- NOTE | 2017-09-14 15:18 | EMERGENCY ROOM VISIT NOTE ---
History First contact with patient: 14:59 Chief Complaint: ABDOMINAL PAIN Stated Complaint: FLANK AND ABDOMINAL PAIN,DIARRHEA,PT HAS MRSA History of Present Illness The patient is a 62 year old female who presents to the Emergency Room via private vehicle accompanied by male with complaints of "flank and abdominal pain , diarrhea, patient has MRSA ankle. The patient states that she has had C. difficile for quite some time and was found to be cleared. She had a course of vancomycin but notes that her diarrhea persists. She states that last night she noted left-sided upper quadrant abdominal pain and then this morning after eating and became right-sided. It radiates across the upper portions of her abdomen. She also notes that she is short of breath with walking. This is not new for her. She is concerned because of the abdominal pain rated as a 6/10. She denies any chest pain or shortness of breath. She also notes headaches of which she has had for quite some time. Review of Systems A complete 10-point Review of Systems was discussed with the patient, with pertinent positives and negatives listed in the History of Present Illness. All remaining Review of Systems questions can be considered negative unless otherwise specified. Past Medical/Surgical History Medical Problems: (1) Asthma (2) Bilateral lower extremity edema (3) Cerebral palsy (4) Chronic pain (5) Complicated UTI (urinary tract infection) (6) DM type 2 (diabetes mellitus, type 2) (7) Dyslipidemia (8) Fibromyalgia (9) VIDA (generalized anxiety disorder) (10) History of migraine (11) Hypothyroidism (12) Major depressive disorder, recurrent, moderate (13) NG (nonalcoholic steatohepatitis) (14) Obesity, morbid (more than 100 lbs over ideal weight or BMI > 40) (15) Obstructive sleep apnea (16) Osteoarthritis (17) Venous insufficiency Surgical Problems: (1) H/O Achilles tendon repair (2) H/O section (3) H/O wisdom tooth extraction (4) History of D&C Family History FH: CAD (coronary artery disease) MOTHER ([place] in her 50s) Social History Smoking Status: Never Smoker Alcohol Use: none Marital Status: Housing Status: lives with family Occupation Status: disabled Current/Historical Medications Scheduled Aspirin (Aspirin Ec), 81 MG PO QAM Atenolol (Tenormin), 25 MG PO HS Atorvastatin (Atorvastatin Calcium), 40 MG PO HS Azelastine Hcl (Astelin Nasal [place]), 2 SPRAYS NA BID Biotin (Biotin), 1 CAP PO QAM Cyclobenzaprine Hcl (Flexeril), 10 MG PO HS Escitalopram Oxalate (Escitalopram Oxalate), 15 MG PO QAM Gabapentin (Neurontin), 300 MG PO BID Gabapentin (Gabapentin), 600 MG PO HS Levothyroxine Sodium (Levothyroxine Sodium), 1 TAB PO DAILYBB Levothyroxine Sodium (Levothyroxine Sodium), 1 TAB PO DAILYBB Metformin Hcl (Glucophage), 1,000 MG PO BID Multiple Vitamins W/ Minerals (Centrum Silver Adult 50+), 1 TAB PO QAM Omeprazole (Prilosec), 20 MG PO QAM Potassium Chloride (Potassium Chloride Cr), 1 TAB PO BID Trazodone Hcl (Trazodone), 50 MG PO HS Scheduled PRN Albuterol Sulfate (Proair Respiclick), 2 PUFFS INH PRN PRN for SOB/Wheezing Benzonatate (Benzonatate), 100 MG PO TID PRN for Cough Docusate Sodium (Colace), 1 CAP PO TID PRN for Constipation Fexofenadine Hcl (Danita), 180 MG PO DAILY PRN for Allergies Furosemide (Lasix), 20 MG PO Q2D PRN for Edema Hydrocodone/Acetaminophen 10MG/325MG ([place] 10MG/325MG), 1 TAB PO BID PRN for Pain Ipratropium-Albuterol (Duoneb), 1 TREATMENT INH QID PRN for SOB/Wheezing Nystatin (Nystatin Cream), 0 EXT BID PRN for rash Physical Exam Vital Signs Date Time Temp Pulse Resp B/P (MAP) Pulse Ox O2 Delivery O2 Flow Rate FiO2 09/14/17 21:38 91 15 94 09/14/17 21:31 130/87 09/14/17 21:08 95 14 94 09/14/17 21:01 140/98 09/14/17 20:38 90 14 92 09/14/17 20:31 124/97 09/14/17 20:12 37.1 09/14/17 20:08 93 14 93 09/14/17 20:01 134/113 09/14/17 19:38 91 13 92 09/14/17 19:33 128/99 09/14/17 18:43 92 17 94 09/14/17 18:38 85 20 112/74 95 Room Air 09/14/17 17:31 /132 09/14/17 17:17 92 20 92 09/14/17 17:01 133/113 09/14/17 16:47 90 19 94 09/14/17 16:42 92 29 92 09/14/17 16:39 91 09/14/17 16:37 92 18 96 09/14/17 16:34 114/78 09/14/17 16:31 96 Room Air 09/14/17 14:56 36.9 80 16 160/85 97 Room Air Physical Exam VITAL SIGNS - Vital signs and nursing notes were reviewed. Stable. Afebrile. Hypertensive. GENERAL -62-year-old female appearing her stated age who is in no acute distress. She is nontoxic in appearance. Communicates well with provider and answers questions appropriately. SKIN - Without rashes. No petechial rashes. HEAD - NC/AT. EYES - PERRL with EOMI bilaterally. Sclera anicteric. Palpebral conjunctiva pink and moist with no injection noted. EARS - No deformities of external structures noted on gross examination bilaterally. NOSE - Midline and without cyanosis. No epistaxis or purulent drainage noted. MOUTH/OROPHARYNX - Without perioral cyanosis. LUNGS - Chest wall symmetric without accessory muscle use, intercostals retractions, or central cyanosis. Normal vesicular breath sounds CTA B/L. No wheezes, rales, or rhonchi appreciated. CARDIAC - RRR with S1/S2. No murmur, rubs, or gallops appreciated. ABDOMEN - Abdominal contour normal without pulsations or visible masses. BS normoactive all four quadrants. Minimal left and right upper quadrant abdominal tenderness. The abdomen is nonrigid. No surgical abdomen identified. No palpable masses, hepatosplenomegaly, or ascites noted. Medical Decision & Procedures ER Provider Diagnostic Interpretation: CHEST ONE VIEW PORTABLE CLINICAL HISTORY: 62 years-old Female presenting with Upper quadrant abd pain. TECHNIQUE: Portable upright AP view of the chest was obtained. COMPARISON: 07/27/2017. FINDINGS: Atherosclerosis of aortic arch. Cardiac silhouette enlarged. Mild pulmonary vascular prominence increased from prior. Mildly low lung volumes with hypoventilatory changes. No focal infiltrate. No large effusion or pneumothorax. Osseous structures normal. Upper abdomen normal. IMPRESSION: 1. Cardiomegaly with possible volume overload. No erma pulmonary edema or other evidence of acute cardiopulmonary disease. 2. Mildly low lung volumes. Electronically signed by: Norris Pineda M.D. 09/14/2017 3:40 PM Dictated Date/Time: 09/14/2017 3:39 PM BILIARY ULTRASOUND CLINICAL HISTORY: Right upper quadrant abdominal pain COMPARISON STUDY: CT scan dated 07/28/2017 FINDINGS: The pancreas appears normal as visualized. The liver has a nodular serosal surface suggestive of cirrhosis. There is mild increased hepatic echogenicity. There is no intrahepatic biliary ductal dilatation. The common bile duct measures 6 mm. There is a contracted gallbladder containing calculi. The wall measures 4 mm, but this may be secondary to a nondistended gallbladder. By history the patient was not n.p.o. prior to this study. The technologist reports a negative sonographic Holguin sign. There is no right-sided hydronephrosis. IMPRESSION: 1. Cholelithiasis. No evidence of ductal dilatation 2. Cirrhotic morphology of the liver Electronically signed by: Caesar Pedroza M.D. 09/14/2017 6:19 PM Dictated Date/Time: 09/14/2017 6:[address] ABD/PELVIS IV CONTRAST ONLY CLINICAL HISTORY: Upper abdominal pain and diarrhea COMPARISON STUDY: 07/28/2017 TECHNIQUE: Following the IV administration of 116 mL of Optiray-320, CT scan of the abdomen and pelvis was performed from the lung bases to the proximal femurs. Images are reviewed in the axial, sagittal, and coronal planes. IV contrast was administered without complication. A dose lowering technique was utilized adhering to the principles of ALARA. CT DOSE: 1546.79 mGy.cm FINDINGS: Lower chest: There are bibasilar groundglass opacities with a mosaic distribution. Liver: There is mild hepatic steatosis. There is mild hepatomegaly. The liver has a cirrhotic morphology. Gallbladder: Probable colloid lithiasis. Spleen: The spleen is enlarged measuring 15 cm. No splenic masses are visualized. Pancreas: Unremarkable. Adrenal glands: Unremarkable. Kidneys: There is symmetric renal cortical enhancement. No solid renal masses are visualized. There is minimal fullness of the right renal collecting system, unchanged the preceding study. There is no ureteral dilatation. Bowel: There are no transition zones indicate bowel obstruction. The appendix appears normal. There is no acute diverticulitis. Peritoneum: There is no intraperitoneal free air or abdominal ascites. Vasculature: The abdominal aorta is normal in course and caliber. Adenopathy: Mildly prominent external iliac lymph nodes remain unchanged the preceding study. Pelvic viscera: There is indwelling Cline catheter. The bladder is decompressed. Skeletal structures: No destructive osseous lesions are seen. IMPRESSION: 1. No evidence of bowel obstruction. No evidence of free air 2. Mild hepatomegaly. Cirrhotic morphology of the liver 3. Splenomegaly 4. Equivocal cholelithiasis 5. Normal appendix 6. No evidence of acute diverticulitis. Electronically signed by: Caesar Pedroza M.D. 09/14/2017 7:24 PM Dictated Date/Time: 09/14/2017 7:18 PM Laboratory Results 09/14/17 15:40 Red Blood Count 4.06, Mean Corpuscular Volume 95.8, Mean Corpuscular Hemoglobin 30.8, Mean Corpuscular Hemoglobin Concent 32.1, Mean Platelet Volume 12.0, Neutrophils (%) (Auto) 59.3, Lymphocytes (%) (Auto) 26.6, Monocytes (%) (Auto) 7.5, Eosinophils (%) (Auto) 5.6, Basophils (%) (Auto) 0.5, Neutrophils # (Auto) 2.55, Lymphocytes # (Auto) 1.14, Monocytes # (Auto) 0.32, Eosinophils # (Auto) 0.24, Basophils # (Auto) 0.02 09/14/17 15:40 Test 09/14/17 15:40 09/14/17 16:43 09/14/17 18:32 White Blood Count 4.29 K/uL (4.8-10.8) Red Blood Count 4.06 M/uL (4.2-5.4) Hemoglobin 12.5 g/dL (12.0-16.0) Hematocrit 38.9 % (37-47) Mean Corpuscular Volume 95.8 fL (80-100) Mean Corpuscular Hemoglobin 30.8 pg (25-34) Mean Corpuscular Hemoglobin Concent 32.1 g/dl (32-36) Platelet Count 150 K/uL (130-400) Mean Platelet Volume 12.0 fL (7.4-10.4) Neutrophils (%) (Auto) 59.3 % Lymphocytes (%) (Auto) 26.6 % Monocytes (%) (Auto) 7.5 % Eosinophils (%) (Auto) 5.6 % Basophils (%) (Auto) 0.5 % Neutrophils # (Auto) 2.55 K/uL (1.4-6.5) Lymphocytes # (Auto) 1.14 K/uL (1.2-3.4) Monocytes # (Auto) 0.32 K/uL (0.11-0.59) Eosinophils # (Auto) 0.24 K/uL (0-0.5) Basophils # (Auto) 0.02 K/uL (0-0.2) RDW Standard Deviation 53.3 fL (36.4-46.3) RDW Coefficient of Variation 15.2 % (11.5-14.5) Immature Granulocyte % (Auto) 0.5 % Immature Granulocyte # (Auto) 0.02 K/uL (0.00-0.02) Anion Gap 7.0 mmol/L (3-11) Est Creatinine Clear Calc Drug Dose 76.1 ml/min Estimated GFR () 81.6 Estimated GFR (Non- 70.4 BUN/Creatinine Ratio 13.2 (10-20) Calcium Level 8.8 mg/dl (8.5-10.1) Magnesium Level 1.8 mg/dl (1.8-2.4) Total Bilirubin 0.7 mg/dl (0.2-1) Aspartate Amino Transf (AST/SGOT) 30 U/L (15-37) Alanine Aminotransferase (ALT/SGPT) 33 U/L (12-78) Alkaline Phosphatase 124 U/L (45-117) Total Creatine Kinase 75 U/L (26-192) Creatine Kinase MB 1.2 ng/ml (0.5-3.6) Creatine Kinase MB Ratio 1.6 (0-3.0) Pro-B-Type Natriuretic Peptide 13 pg/ml (0-900) Total Protein 7.9 gm/dl (6.4-8.2) Albumin 3.4 gm/dl (3.4-5.0) Globulin 4.5 gm/dl (2.5-4.0) Albumin/Globulin Ratio 0.8 (0.9-2) Lipase 76 U/L (73-393) Urine Color YELLOW Urine Appearance CLOUDY (CLEAR) Urine pH 5.0 (4.5-7.5) Urine Specific [place] 1.022 (1.000-1.030) Urine Protein TRACE (NEG) Urine Glucose (UA) 2+ (NEG) Urine Ketones NEG (NEG) Urine Occult Blood 2+ (NEG) Urine Nitrite POS (NEG) Urine Bilirubin NEG (NEG) Urine Urobilinogen NEG (NEG) Urine Leukocyte Esterase LARGE (NEG) Urine WBC (Auto) >30 /hpf (0-5) Urine RBC (Auto) >30 /hpf (0-4) Urine Hyaline Casts (Auto) 5-10 /lpf (0-5) Urine Epithelial Cells (Auto) >30 /lpf (0-5) Urine Bacteria (Auto) 4+ (NEG) Urine Pathogenic Casts 1-5 GRANULAR CASTS /lpf (0) Troponin I < 0.015 ng/ml (0-0.045) Medications Administered Medications (Trade) Dose Ordered Sig/Betsy Route Start Time Stop Time Status Last Admin Dose Admin Morphine Sulfate (MoRPHine SULFATE INJ) 4 mg NOW STAT IV 09/14/17 15:11 09/14/17 15:14 DC 09/14/17 16:29 4 MG Ceftriaxone Sodium (Rocephin Inj) 1 gm NOW STAT IV 09/14/17 21:00 09/14/17 21:17 DC 09/14/17 21:35 1 GM Medical Decision Patient was seen and evaluated as above. She presents to us today with abdominal pain, diarrhea and generally not feeling well. She notes diarrhea 6 weeks. She also has a chronic Cline catheter in place. IV access was initiated , the above workup was performed. No concerning leukocytosis or anemia. Metabolic panel reveals no evidence of kidney or liver failure. Random glucose high at 221. Troponins negative 2. Urinalysis reveals positive nitrites, and evidence of a clear UTI with an indwelling Cline catheter. Bedside EKG was obtained and found to be normal sinus rhythm, and questionable anterior and anterior infarct. This was compared to previous EKGs and there is perhaps poor progression through the V1 to in 3 leads however a true large change was not found. This was repeated and found to be similar. Despite 2 negative troponins. The case was discussed with the attending physician, and the concern is that the patient clinically does not look well, has abdominal pain that despite morphine is persisting, and has a large UTI. She was also recently here for bacteremia. I will order blood cultures and lactic acid. I believe that inpatient management is warranted to further manage the abdominal pain, and the patient's poor clinical status. I did discuss the case with the hospitalist, and please refer to further documentation regarding her stay. In evaluation treatment this patient following differential diagnoses were entertained: [place], PE, peritonitis, pericarditis, ascending cholangitis, cholangitis, acute cholecystitis, pancreatitis, splenomegaly, acute intra- abdominal process, among others. Impression Primary Impression: Abdominal pain Additional Impression: UTI (urinary tract infection) Departure Information Dispostion Admitted as an inpatient Condition FAIR Referrals Nancy Matute M.D. (MEDICAL) (PCP) Patient Instructions My [facility] Problem Qualifiers Primary Impression: Abdominal pain Abdominal location: generalized Qualified Codes: R10.84 - Generalized abdominal pain
--- NOTE | 2017-09-14 15:41 | DIAGNOSTIC IMAGING REPORT ---
CHEST ONE VIEW PORTABLE CLINICAL HISTORY: 62 years-old Female presenting with Upper quadrant abd pain. TECHNIQUE: Portable upright AP view of the chest was obtained. COMPARISON: 07/27/2017. FINDINGS: Atherosclerosis of aortic arch. Cardiac silhouette enlarged. Mild pulmonary vascular prominence increased from prior. Mildly low lung volumes with hypoventilatory changes. No focal infiltrate. No large effusion or pneumothorax. Osseous structures normal. Upper abdomen normal. IMPRESSION: 1. Cardiomegaly with possible volume overload. No erma pulmonary edema or other evidence of acute cardiopulmonary disease. 2. Mildly low lung volumes. Electronically signed by: Norris Pineda M.D. 09/14/2017 3:40 PM Dictated Date/Time: 09/14/2017 3:39 PM
[2017-09-14 15:50] LABS: BASO % 0.5 %; BASO ABS # 0.02 K/uL (0-0.2); EOS % 5.6 %; EOS ABS # 0.24 K/uL (0-0.5); HEMATOCRIT 38.9 % (37-47); HEMOGLOBIN 12.5 g/dL (12.0-16.0); IG# 0.02 K/uL (0.00-0.02); LYMPH % 26.6 %; LYMPH ABS # 1.14 K/uL (1.2-3.4); MEAN CELL VOLUME 95.8 fL (80-100); MEAN CORPUSCULAR HEMOGLOBIN 30.8 pg (25-34); MEAN CORPUSCULAR HGB CONC 32.1 g/dl (32-36); MONO % 7.5 %; MONO ABS # 0.32 K/uL (0.11-0.59); NEUT % 59.3 %; NEUT ABS # 2.55 K/uL (1.4-6.5); PLATELET COUNT 150 K/uL (130-400); RED CELL DISTRIBUTION WIDTH CV 15.2 % (11.5-14.5); RED CELL DISTRIBUTION WIDTH SD 53.3 fL (36.4-46.3); WHITE BLOOD COUNT 4.29 K/uL (4.8-10.8)
[2017-09-14 16:23] LABS: ALBUMIN 3.4 gm/dl (3.4-5.0); ALT/SGPT 33 U/L (12-78); AST/SGOT 30 U/L (15-37); BLOOD UREA NITROGEN 12 mg/dl (7-18); CALCIUM 8.8 mg/dl (8.5-10.1); CARBON DIOXIDE 26 mmol/L (21-32); CREATININE 0.88 mg/dl (0.60-1.20); GLUCOSE 221 mg/dl (70-99); LIPASE 76 U/L (73-393); POTASSIUM 3.6 mmol/L (3.5-5.1); SODIUM 139 mmol/L (136-145)
[2017-09-14 16:30] LABS: ALKALINE PHOSPHATASE 124 U/L (45-117); CKMB 1.2 ng/ml (0.5-3.6); TOTAL PROTEIN 7.9 gm/dl (6.4-8.2)
--- NOTE | 2017-09-14 18:20 | DIAGNOSTIC IMAGING REPORT ---
BILIARY ULTRASOUND CLINICAL HISTORY: Right upper quadrant abdominal pain COMPARISON STUDY: CT scan dated 07/28/2017 FINDINGS: The pancreas appears normal as visualized. The liver has a nodular serosal surface suggestive of cirrhosis. There is mild increased hepatic echogenicity. There is no intrahepatic biliary ductal dilatation. The common bile duct measures 6 mm. There is a contracted gallbladder containing calculi. The wall measures 4 mm, but this may be secondary to a nondistended gallbladder. By history the patient was not n.p.o. prior to this study. The technologist reports a negative sonographic Holguin sign. There is no right-sided hydronephrosis. IMPRESSION: 1. Cholelithiasis. No evidence of ductal dilatation 2. Cirrhotic morphology of the liver Electronically signed by: Caesar Pedroza M.D. 09/14/2017 6:19 PM Dictated Date/Time: 09/14/2017 6:16 PM
[2017-09-14] MEDS ORDERED: OPTIRAY 320 IV PRN ×2 (18:45→19:30)
--- NOTE | 2017-09-14 19:26 | DIAGNOSTIC IMAGING REPORT ---
CT ABD/PELVIS IV CONTRAST ONLY CLINICAL HISTORY: Upper abdominal pain and diarrhea COMPARISON STUDY: 07/28/2017 TECHNIQUE: Following the IV administration of 116 mL of Optiray-320, CT scan of the abdomen and pelvis was performed from the lung bases to the proximal femurs. Images are reviewed in the axial, sagittal, and coronal planes. IV contrast was administered without complication. A dose lowering technique was utilized adhering to the principles of ALARA. CT DOSE: 1546.79 mGy.cm FINDINGS: Lower chest: There are bibasilar groundglass opacities with a mosaic distribution. Liver: There is mild hepatic steatosis. There is mild hepatomegaly. The liver has a cirrhotic morphology. Gallbladder: Probable colloid lithiasis. Spleen: The spleen is enlarged measuring 15 cm. No splenic masses are visualized. Pancreas: Unremarkable. Adrenal glands: Unremarkable. Kidneys: There is symmetric renal cortical enhancement. No solid renal masses are visualized. There is minimal fullness of the right renal collecting system, unchanged the preceding study. There is no ureteral dilatation. Bowel: There are no transition zones indicate bowel obstruction. The appendix appears normal. There is no acute diverticulitis. Peritoneum: There is no intraperitoneal free air or abdominal ascites. Vasculature: The abdominal aorta is normal in course and caliber. Adenopathy: Mildly prominent external iliac lymph nodes remain unchanged the preceding study. Pelvic viscera: There is indwelling Cline catheter. The bladder is decompressed. Skeletal structures: No destructive osseous lesions are seen. IMPRESSION: 1. No evidence of bowel obstruction. No evidence of free air 2. Mild hepatomegaly. Cirrhotic morphology of the liver 3. Splenomegaly 4. Equivocal cholelithiasis 5. Normal appendix 6. No evidence of acute diverticulitis. Electronically signed by: Caesar Pedroza M.D. 09/14/2017 7:24 PM Dictated Date/Time: 09/14/2017 7:18 PM
[2017-09-14] MEDS ORDERED: CEFTRIAXONE SOD INJ 1 GM ADDVIAL IV STA (21:00)
[2017-09-14 22:18] VITALS: BP 146/94; PULSE 86; TEMP 37; O2SAT 94; BMI 52.1; BMI 52.2
[2017-09-14] MEDS ORDERED: GABAPENTIN 300 MG CAP PO ONE (22:39)
[2017-09-14] MEDS ORDERED: MoRPHine SULFATE 4 MG/ML 1 ML CARP\\VIAL IV PRN (22:45)
[2017-09-14] MEDS ORDERED: PROCHLORPERAZINE INJ 5 MG in SYRINGE 4 ML IV PRN (22:45)
[2017-09-14] MEDS ORDERED: GLUCOSE 10 TABS/TUBE PO PRN (22:45)
[2017-09-14] MEDS ORDERED: GLUCOSE 40% GEL 15 GM TUBE PO PRN (22:45)
[2017-09-14] MEDS ORDERED: FEXOFENADINE HCL 180 MG TAB PO PRN (22:45)
[2017-09-14] MEDS ORDERED: GLUCAGON FOR INJ 1 MG VIAL SQ PRN (22:45)
[2017-09-14] MEDS ORDERED: DEXTROSE 50% 50 ML SYR IV PRN (22:45)
[2017-09-14 23:34] LABS: HEMATOCRIT 37.3 % (37-47)
[2017-09-14] MEDS ORDERED: INSULIN ASPART 100 UNITS/ML 3 ML PEN SC ONE (23:45)
[2017-09-14] MEDS ORDERED: INSULIN GLARGINE SOLOSTAR 100 UNITS/ML 3 ML PEN SC ONE (23:45)
[2017-09-15] MEDS ORDERED: NSS + 20MEQ KCL 1000ML 1,000 ML IV ONE
--- NOTE | 2017-09-15 04:59 | HISTORY & PHYSICAL EXAMINATION ---
DATE OF ADMISSION: 09/14/2017 PRIMARY CARE PHYSICIAN: Jorge Matute MD. HISTORY OF PRESENT ILLNESS: History obtained from the patient, , and records. Medical history significant for mood disorder, fibromyalgia, hypertension, hyperlipidemia, fatty liver disease; sleep apnea, THAD on CPAP, DM2 on oral meds, chronic thrombocytopenia. cerebral palsy as per records Recent confinement July 2017 for MRSA bacteremia, deanna UTI. As per notes, blood culture on 07/26/2017 done at [facility] showed MRSA. Patient discharged on IV Vancomycin as per ID recommendation. Patient also came in with flank pain attributed to interval passage of punctate kidney stone. Deanna UTI treated with p.o. Diflucan. Patient discharged to Rehab w/ indwelling Cline catheter. As per the patient, she developed C. diff at rehabilitation hospital. Patient completed by treatment. Patient discharged home with a Cline catheter as per Urology recommendations until follow-up at urologist office November 2017 as per patient. Patient believes she needs the indwelling Cline catheter because she is prone to "bladder accidents" because she has trouble getting out of bed to the commode in time without the Cline catheter. She has not had a followup with PCP since discharge from [facility]. Yesterday, the patient noted achy right-sided abdominal pain, with nausea. No emesis. Usual shortness of breath on exertion and cough productive of yellow sputum. Denies chest pain. Loose stools, intermittently bloody. No fevers. Some chills. Denies bladder discomfort. denies hematuria. Patient brought to the Emergency Room. MEDICAL HISTORY: As above. An EGD done September 2016 showed nonbleeding grade I esophageal varices, gastritis. Colonoscopy showed nonbleeding internal hemorrhoids. SURGICAL HISTORY: She has had dental surgery, gynecologic section, hip surgery, and tendon repair. HOME MEDICATIONS: Include gabapentin, DuoNeb, levothyroxine, Glucophage, Centrum, nystatin, Prilosec, potassium chloride, trazodone, benzonatate, Flexeril, Colace, Danita, Lasix, Neurontin, aspirin, Astelin, ProAir, atenolol, atorvastatin, and Biotin. ALLERGIES: PENICILLIN. FAMILY HISTORY: Heart disease. PERSONAL AND SOCIAL HISTORY: Nonsmoker. No chronic intake of alcoholic beverages, disabled. REVIEW OF SYSTEMS: As per HPI, all 10 systems, all other ROS are negative. PHYSICAL EXAMINATION: VITAL SIGNS: Blood pressure noted to be 110/70, pulse rate 85, RR 20, temperature 36.9, and sats 97 on room air. GENERAL: Noted to be obese, uncomfortable. No respiratory distress. SKIN: Normal color, warm. HEENT: [place] palpable conjunctivae. No ptosis. Dry mucosa. NECK: Short neck. No tenderness. CHEST: Decreased breath sounds. No tenderness. HEART: Regular rate and rhythm. No murmur. ABDOMEN: Right-sided abdominal tenderness. Some distention. EXTREMITIES: Minimal LE edema. No tenderness. No gross deformities NEUROLOGIC: Coherent. No gross focality. LABORATORY DATA: Hemoglobin was noted to be 12.5, wbc 9 platelets 150. Sodium 135, potassium 3.6, chloride 106, CO2 of 26, BUN 12, creatinine 0.8, glucose 221. Hemoglobin A1c from July 2017 was 8.4. UA was noted to be nitrite positive, occult blood, granular casts, hyaline casts noted. stool hemoccult in the ER was noted to be positive. IMAGING STUDIES: CT abdomen and pelvis showed no bowel obstruction, mild hepatomegaly, cirrhosis, splenomegaly, acalculous cholelithiasis, normal appendix, minimal fullness right renal collecting system noted on previous imaging . Chest x-ray, cardiomegaly. No erma pulmonary edema. ASSESSMENT: 1. Abdominal pain Multifactorial : Complicated urinary tract infection. History of indwelling Cline catheter for the last few months. No sepsis. Diarrhea ro recurrent C. diff with intermittent bleeding possibly from hemorrhoidal bleed. Hemoglobin stable. 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 hx MRSA bacteremia status post IV Vancomycin treatment (of note - MRSA from actual blood cultures results last July 2017 could not be found upon review of outpatient/inpatient records.) 4. Hypertension, stable. 5. DM2, on oral meds, suboptimal control as of recent HgA1c. 6. Mood disorder. stable 7. Cerebral palsy as per records PLAN: GMF Follow urine cultures, IV Ceftriaxone for now. Urology consult. Follow up eval for indwelling Cline catheter (Patient known to Dr. Escobar.) stool C. diff. ff H&H. May need GI consult if with progressive bleeding/Hg drop basal insulin, ISS BG goal 140-180 Carb count coverage indicated for suboptimal blood sugar control. DVT prophylaxis, SCDs RE LGI bleed. Full code. MTDD
[2017-09-15] MEDS: LEVOTHYROXINE 100 MCG TAB PO SCH (06:42)
[2017-09-15] MEDS: LEVOTHYROXINE 88 MCG TAB PO SCH (06:42)
[2017-09-15] MEDS: HYDROCODONE/ACETAMI 10/325 TAB PO PRN ×2 (06:47→16:25)
[2017-09-15 07:54] VITALS: BP 119/75; PULSE 70; TEMP 36.8; O2SAT 92
[2017-09-15] MEDS ORDERED: PANTOprazole SOD 40 MG TAB PO SCH (08:00)
[2017-09-15 08:08] LABS: BASO % 0.8 %; BASO ABS # 0.04 K/uL (0-0.2); EOS % 6.3 %; EOS ABS # 0.33 K/uL (0-0.5); HEMOGLOBIN 12.1 g/dL (12.0-16.0); IG# 0.02 K/uL (0.00-0.02); LYMPH % 27.1 %; LYMPH ABS # 1.42 K/uL (1.2-3.4); MEAN CELL VOLUME 96.2 fL (80-100); MEAN CORPUSCULAR HEMOGLOBIN 30.6 pg (25-34); MEAN CORPUSCULAR HGB CONC 31.8 g/dl (32-36); MEAN PLATELET VOLUME 11.8 fL (7.4-10.4); MONO % 9.2 %; MONO ABS # 0.48 K/uL (0.11-0.59); NEUT % 56.2 %; NEUT ABS # 2.95 K/uL (1.4-6.5); PLATELET COUNT 176 K/uL (130-400); RED CELL DISTRIBUTION WIDTH CV 15.5 % (11.5-14.5); RED CELL DISTRIBUTION WIDTH SD 54.6 fL (36.4-46.3); WHITE BLOOD COUNT 5.24 K/uL (4.8-10.8)
[2017-09-15] MEDS: GABAPENTIN 300 MG CAP PO SCH ×2 (08:56→16:26)
[2017-09-15] MEDS: PANTOprazole SOD 40 MG TAB PO SCH (08:56)
[2017-09-15] MEDS: CEROVITE ADV FORMULA TAB PO SCH (08:57)
[2017-09-15] MEDS: ESCITALOPRAM OXALATE 10 MG TAB PO SCH (08:57)
[2017-09-15] MEDS ORDERED: NURSING DECISION MEDICATION ORDER SCH (09:00)
[2017-09-15] MEDS: INSULIN ASPART 100 UNITS/ML 3 ML PEN SC SCH ×4 (09:07→21:07)
[2017-09-15] MEDS ORDERED: MICONAZOLE NITRATE POWDER 43 GM ONE (09:11)
[2017-09-15 12:12] LABS: HEMATOCRIT 39.3 % (37-47); HEMOGLOBIN 12.7 g/dL (12.0-16.0)
[2017-09-15 12:37] VITALS: Ht 149.9 cm; Wt 117.2 kg
[2017-09-15] MEDS ORDERED: MICONAZOLE NITRATE POWDER 43 GM EXT PRN (13:30)
[2017-09-15 15:57] VITALS: BP 104/68; PULSE 79; TEMP 37; O2SAT 95
[2017-09-15 16:00] VITALS: O2SAT 95
[2017-09-15] MEDS ORDERED: GABAPENTIN 300 MG CAP PO SCH (16:00)
--- NOTE | 2017-09-15 16:13 | Progress Note ---
Internal Med Progress Note Date of Service: Sep 15, 2017. Provider Documentation: SUBJECTIVE: Patient is seen and examined at bedside States abdominal pain, nausea, diarrhea resolved Denies any dysuria, chest pain, SOB, dizziness Eager to get discharged States Cline was last changed in August No other complaints OBJECTIVE: Vital Signs-as noted below Physical Exam: General Appearance:Obese, no apparent distress Head: normocephalic, Atraumatic Eyes: normal inspection, EOMI, PERRL Neck: supple, Trachea midline Respiratory/Chest: Decreased breath sounds, CTA Cardiovascular: S1, S2, No murmur Abdomen/GI:Soft, Non tender, Bowel sounds present, Obese Extremities/Musculoskelatal:normal inspection, Trace edema Neurologic/Psych:AAOX3, grossly no focal neurological deficits Skin: normal color, warm Lab data as noted below. ASSESSMENT & PLAN: Complicated UTI: Presented with right sided Abdominal pain, nausea, diarrhea Urine culture: Gram negative bacilli Continue Ceftriaxone Blood cultures:pending Change Cline catheter Urology consulted. Previously seen by Voiding trial as per Urology Stool studies pending DM II: Last A1C:8.4 on 07/29/17 Hold Metformin ISS, Lantus Monitor blood sugar levels H/O MRSA Bacteremia and C.diff : Completed IV Vancomycin therapy H/O Internal Hemorrhoids: Reports noticing blood in stools intermittently Hb at baseline Cerebral Palsy: minimally ambulatory and leg strength weaker than upper extremity strength PT/OT Chronic B/L LE edema/Chronic Venous stasis: encourage leg elevation, Continue Lasix 20 mg for leg swelling H/O CAD continue aspirin, BB, atorvastatin Hypothyroidism: continue Levothyroxine H/O Asthma: no signs of exacerbation Mood disorder continue escitalopram and trazodone DVT px: SCDs Code Status: Full Code Disposition: PT/OT, environmental services technician consulted Vital Signs: Date Time Temp Pulse Resp B/P (MAP) Pulse Ox O2 Delivery O2 Flow Rate FiO2 09/15/17 15:57 37.0 79 20 104/68 (80) 95 09/15/17 09:00 Room Air 09/15/17 07:54 36.8 70 16 119/75 (90) 92 Room Air 09/14/17 23:19 37.1 91 15 130/87 94 09/14/17 22:18 37.0 86 18 146/94 94 Room Air 09/14/17 21:38 91 15 94 1/4/18 21:31 130/87 09/14/17 21:08 95 14 94 09/14/17 21:01 140/98 09/14/17 20:38 90 14 92 09/14/17 20:31 124/97 09/14/17 20:12 37.1 09/14/17 20:08 93 14 93 09/14/17 20:01 134/113 09/14/17 19:38 91 13 92 09/14/17 19:33 128/99 09/14/17 18:43 92 17 94 09/14/17 18:38 85 20 112/74 95 Room Air Lab Results: Results Past 24 Hours Test 09/14/17 18:32 09/14/17 22:38 09/14/17 23:14 09/15/17 00:14 Range/Units Troponin I < 0.015 0-0.045 ng/ml Lactic Acid Level 2.1 0.4-2.0 mmol/L Hemoglobin 12.0 12.0-16.0 g/dL Hematocrit 37.3 37-47 % Bedside Glucose 121 70-90 mg/dl Test 09/15/17 07:44 09/15/17 07:59 09/15/17 11:33 09/15/17 12:01 Range/Units Bedside Glucose 146 155 70-90 mg/dl White Blood Count 5.24 4.8-10.8 K/uL Red Blood Count 3.95 4.2-5.4 M/uL Hemoglobin 12.1 12.7 12.0-16.0 g/dL Hematocrit 38.0 39.3 37-47 % Mean Corpuscular Volume 96.2 80-100 fL Mean Corpuscular Hemoglobin 30.6 25-34 pg Mean Corpuscular Hemoglobin Concent 31.8 32-36 g/dl Platelet Count 176 130-400 K/uL Mean Platelet Volume 11.8 7.4-10.4 fL Neutrophils (%) (Auto) 56.2 % Lymphocytes (%) (Auto) 27.1 % Monocytes (%) (Auto) 9.2 % Eosinophils (%) (Auto) 6.3 % Basophils (%) (Auto) 0.8 % Neutrophils # (Auto) 2.95 1.4-6.5 K/uL Lymphocytes # (Auto) 1.42 1.2-3.4 K/uL Monocytes # (Auto) 0.48 0.11-0.59 K/uL Eosinophils # (Auto) 0.33 0-0.5 K/uL Basophils # (Auto) 0.04 0-0.2 K/uL RDW Standard Deviation 54.6 36.4-46.3 fL RDW Coefficient of Variation 15.5 11.5-14.5 % Immature Granulocyte % (Auto) 0.4 % Immature Granulocyte # (Auto) 0.02 0.00-0.02 K/uL Lactic Acid Level 1.4 0.4-2.0 mmol/L Test 09/15/17 16:45 Range/Units Bedside Glucose 257 70-90 mg/dl Microbiology Results 09/14/17 Blood Culture, Received Pending 09/14/17 Blood Culture, Received Pending
[2017-09-15 18:24] LABS: HEMATOCRIT 36.6 % (37-47); HEMOGLOBIN 11.7 g/dL (12.0-16.0)
[2017-09-15 18:43] LABS: INR 1.1 (0.9-1.1); PTT PATIENT 28.3 SECONDS (21.0-31.0)
[2017-09-15] MEDS: CEFTRIAXONE SOD INJ 1 GM in DEXTROSE 5% ADD-VANTAGE 50ML 50 ML IV SCH (21:04)
[2017-09-15] MEDS: INSULIN GLARGINE SOLOSTAR 100 UNITS/ML 3 ML PEN SC SCH (21:08)
[2017-09-15] MEDS: GABAPENTIN 600 MG TAB PO SCH (21:09)
[2017-09-15] MEDS: ATORVASTATIN 40 MG TAB PO SCH (21:09)
[2017-09-15] MEDS: TRAZODONE HCL 50 MG TAB PO SCH (21:10)
[2017-09-15] MEDS: CYCLOBENZAPRINE HCL 10 MG TAB PO SCH (21:10)
[2017-09-15 21:11] VITALS: BP 105/71; PULSE 76
[2017-09-15 23:52] VITALS: BP 120/72; PULSE 72; TEMP 37.1; O2SAT 93
[2017-09-15 23:54] VITALS: PULSE 72; O2SAT 96
[2017-09-16] MEDS: LEVOTHYROXINE 100 MCG TAB PO SCH (06:14)
[2017-09-16] MEDS: LEVOTHYROXINE 88 MCG TAB PO SCH (06:15)
[2017-09-16 07:16] LABS: BASO ABS # 0.04 K/uL (0-0.2); EOS % 6.5 %; EOS ABS # 0.27 K/uL (0-0.5); HEMATOCRIT 35.6 % (37-47); HEMOGLOBIN 11.2 g/dL (12.0-16.0); IG# 0.01 K/uL (0.00-0.02); LYMPH % 26.2 %; LYMPH ABS # 1.08 K/uL (1.2-3.4); MEAN CELL VOLUME 96.5 fL (80-100); MEAN CORPUSCULAR HEMOGLOBIN 30.4 pg (25-34); MEAN CORPUSCULAR HGB CONC 31.5 g/dl (32-36); MEAN PLATELET VOLUME 11.9 fL (7.4-10.4); MONO ABS # 0.33 K/uL (0.11-0.59); NEUT % 58.1 %; PLATELET COUNT 149 K/uL (130-400); RED CELL DISTRIBUTION WIDTH CV 15.4 % (11.5-14.5); RED CELL DISTRIBUTION WIDTH SD 54.4 fL (36.4-46.3); WHITE BLOOD COUNT 4.13 K/uL (4.8-10.8)
[2017-09-16 07:26] VITALS: BP 96/65; PULSE 69; TEMP 36.9; O2SAT 95
[2017-09-16 07:48] LABS: CALCIUM 8.7 mg/dl (8.5-10.1); CREATININE 0.77 mg/dl (0.60-1.20); POTASSIUM 3.7 mmol/L (3.5-5.1)
[2017-09-16] MEDS: GABAPENTIN 300 MG CAP PO SCH ×2 (07:52→17:35)
[2017-09-16] MEDS: PANTOprazole SOD 40 MG TAB PO SCH (07:52)
[2017-09-16] MEDS: CEROVITE ADV FORMULA TAB PO SCH (07:52)
[2017-09-16] MEDS: ESCITALOPRAM OXALATE 10 MG TAB PO SCH (07:52)
[2017-09-16 08:15] VITALS: BP 142/79; PULSE 70
[2017-09-16] MEDS: INSULIN ASPART 100 UNITS/ML 3 ML PEN SC SCH ×4 (09:48→20:46)
[2017-09-16 15:12] VITALS: BP 107/71; PULSE 73; TEMP 37.3; O2SAT 91
--- NOTE | 2017-09-16 16:26 | Progress Note ---
Internal Med Progress Note Date of Service: Sep 16, 2017. Provider Documentation: SUBJECTIVE: Patient is seen and examined at bedside Reports having a brief episode of abdominal pain overnight which resolved Denies dysuria, chest pain, SOB, dizziness Family at bedside Needs Rehab placement. Patient agreeable No other complaints OBJECTIVE: Vital Signs-as noted below Physical Exam: General Appearance:Obese, no apparent distress Head: normocephalic, Atraumatic Eyes: normal inspection, EOMI, PERRL Neck: supple, Trachea midline Respiratory/Chest: Decreased breath sounds, CTA Cardiovascular: S1, S2, No murmur Abdomen/GI:Soft, Non tender, Bowel sounds present, Obese Extremities/Musculoskelatal:normal inspection, Trace edema Neurologic/Psych:AAOX3, grossly no focal neurological deficits Skin: normal color, warm Lab data as noted below. ASSESSMENT & PLAN: Complicated UTI: Presented with right sided Abdominal pain, nausea, diarrhea Urine culture: Enterobacter Continue Ceftriaxone Blood cultures:No growth to date Change Cline catheter Urology consulted. Previously seen by Voiding trial as per Urology Will get Stool studies if diarrhea recurs DM II: Last A1C:8.4 on 07/29/17 Hold Metformin ISS, Lantus Monitor blood sugar levels H/O MRSA Bacteremia and C.diff : Completed IV Vancomycin therapy prior to admission H/O Internal Hemorrhoids: Reports noticing blood in stools intermittently Hb at baseline Cerebral Palsy: minimally ambulatory and leg strength weaker than upper extremity strength PT/OT Chronic B/L LE edema/Chronic Venous stasis: encourage leg elevation, Continue Lasix 20 mg for leg swelling H/O CAD continue aspirin, BB, atorvastatin Hypothyroidism: continue Levothyroxine H/O Asthma: no signs of exacerbation Mood disorder continue escitalopram and trazodone DVT px: SCDs Code Status: Full Code Disposition: PT/OT, technical services specialist consulted Needs Rehab placement. Vital Signs: Date Time Temp Pulse Resp B/P (MAP) Pulse Ox O2 Delivery O2 Flow Rate FiO2 09/16/17 15:15 Room Air 09/16/17 15:12 37.3 73 20 107/71 (83) 91 09/16/17 08:25 Room Air 09/16/17 08:15 70 142/79 (100) 09/16/17 07:26 36.9 69 18 96/65 (75) 95 BiPAP 09/16/17 00:00 Room Air 09/15/17 23:54 72 96 3.0 09/15/17 23:52 37.1 72 18 120/72 (88) 93 Room Air 09/15/17 21:11 76 105/71 (82) Lab Results: Results Past 24 Hours Test 09/15/17 16:45 09/15/17 18:16 09/15/17 19:57 09/16/17 06:51 Range/Units Bedside Glucose 257 156 70-90 mg/dl Hemoglobin 11.7 11.2 12.0-16.0 g/dL Hematocrit 36.6 35.6 37-47 % Prothrombin Time 11.5 9.0-12.0 SECONDS Prothromb Time International Ratio 1.1 0.9-1.1 Activated Partial Thromboplast Time 28.3 21.0-31.0 SECONDS Partial Thromboplastin Ratio 1.1 White Blood Count 4.13 4.8-10.8 K/uL Red Blood Count 3.69 4.2-5.4 M/uL Mean Corpuscular Volume 96.5 80-100 fL Mean Corpuscular Hemoglobin 30.4 25-34 pg Mean Corpuscular Hemoglobin Concent 31.5 32-36 g/dl Platelet Count 149 130-400 K/uL Mean Platelet Volume 11.9 7.4-10.4 fL Neutrophils (%) (Auto) 58.1 % Lymphocytes (%) (Auto) 26.2 % Monocytes (%) (Auto) 8.0 % Eosinophils (%) (Auto) 6.5 % Basophils (%) (Auto) 1.0 % Neutrophils # (Auto) 2.40 1.4-6.5 K/uL Lymphocytes # (Auto) 1.08 1.2-3.4 K/uL Monocytes # (Auto) 0.33 0.11-0.59 K/uL Eosinophils # (Auto) 0.27 0-0.5 K/uL Basophils # (Auto) 0.04 0-0.2 K/uL RDW Standard Deviation 54.4 36.4-46.3 fL RDW Coefficient of Variation 15.4 11.5-14.5 % Immature Granulocyte % (Auto) 0.2 % Immature Granulocyte # (Auto) 0.01 0.00-0.02 K/uL Sodium Level 139 136-145 mmol/L Potassium Level 3.7 3.5-5.1 mmol/L Chloride Level 105 98-107 mmol/L Carbon Dioxide Level 27 21-32 mmol/L Anion Gap 7.0 3-11 mmol/L Blood Urea Nitrogen 12 7-18 mg/dl Creatinine 0.77 0.60-1.20 mg/dl Est Creatinine Clear Calc Drug Dose 87.1 ml/min Estimated GFR () 95.9 Estimated GFR (Non- 82.8 BUN/Creatinine Ratio 15.7 10-20 Random Glucose 149 70-99 mg/dl Calcium Level 8.7 8.5-10.1 mg/dl Magnesium Level 2.0 1.8-2.4 mg/dl Test 09/16/17 07:26 09/16/17 11:23 Range/Units Bedside Glucose 147 252 70-90 mg/dl
[2017-09-16] MEDS: GABAPENTIN 600 MG TAB PO SCH (20:42)
[2017-09-16] MEDS: CEFTRIAXONE SOD INJ 1 GM in DEXTROSE 5% ADD-VANTAGE 50ML 50 ML IV SCH (20:42)
[2017-09-16] MEDS: ATORVASTATIN 40 MG TAB PO SCH (20:43)
[2017-09-16] MEDS: CYCLOBENZAPRINE HCL 10 MG TAB PO SCH (20:43)
[2017-09-16] MEDS: TRAZODONE HCL 50 MG TAB PO SCH (20:43)
[2017-09-16] MEDS: INSULIN GLARGINE SOLOSTAR 100 UNITS/ML 3 ML PEN SC SCH (20:47)
[2017-09-16 23:17] VITALS: PULSE 70; O2SAT 98
[2017-09-16 23:22] VITALS: BP 117/69; PULSE 71; TEMP 36.9; O2SAT 95
[2017-09-17 06:28] LABS: HEMATOCRIT 34.7 % (37-47)
[2017-09-17] MEDS: LEVOTHYROXINE 100 MCG TAB PO SCH (06:35)
[2017-09-17] MEDS: LEVOTHYROXINE 88 MCG TAB PO SCH (06:35)
[2017-09-17 07:04] LABS: CALCIUM 8.6 mg/dl (8.5-10.1); CREATININE 0.76 mg/dl (0.60-1.20); POTASSIUM 3.7 mmol/L (3.5-5.1)
[2017-09-17 07:53] VITALS: BP 105/71; PULSE 67; TEMP 36.8; O2SAT 95
[2017-09-17] MEDS: GABAPENTIN 300 MG CAP PO SCH ×2 (08:33→15:43)
[2017-09-17] MEDS: PANTOprazole SOD 40 MG TAB PO SCH (08:33)
[2017-09-17] MEDS: ESCITALOPRAM OXALATE 10 MG TAB PO SCH (08:33)
[2017-09-17] MEDS: CEROVITE ADV FORMULA TAB PO SCH (08:33)
[2017-09-17] MEDS: INSULIN ASPART 100 UNITS/ML 3 ML PEN SC SCH ×4 (08:34→20:20)
--- NOTE | 2017-09-17 09:26 | Progress Note ---
Internal Med Progress Note Date of Service: Sep 17, 2017. Provider Documentation: SUBJECTIVE: Patient is seen and examined at bedside Doing well today Denies dysuria, abdominal pain, chest pain, SOB, dizziness Needs Rehab placement. No other complaints OBJECTIVE: Vital Signs-as noted below Physical Exam: General Appearance:Obese, no apparent distress Head: normocephalic, Atraumatic Eyes: normal inspection, EOMI, PERRL Neck: supple, Trachea midline Respiratory/Chest: Decreased breath sounds, CTA Cardiovascular: S1, S2, No murmur Abdomen/GI:Soft, Non tender, Bowel sounds present, Obese Extremities/Musculoskelatal:normal inspection, Trace edema Neurologic/Psych:AAOX3, grossly no focal neurological deficits Skin: normal color, warm Lab data as noted below. ASSESSMENT & PLAN: Complicated UTI: Presented with right sided Abdominal pain, nausea, diarrhea Urine culture: Enterobacter Continue Ceftriaxone Day # 4 Blood cultures:No growth to date Changed Cline catheter Urology consulted. Previously seen by Voiding trial as per Urology Will get Stool studies if diarrhea recurs DM II: Last A1C:8.4 on 07/29/17 Hold Metformin ISS, Lantus Monitor blood sugar levels H/O MRSA Bacteremia and C.diff : Completed IV Vancomycin therapy prior to admission H/O Internal Hemorrhoids: Reports noticing blood in stools intermittently Hb at baseline Cerebral Palsy: minimally ambulatory and leg strength weaker than upper extremity strength PT/OT Chronic B/L LE edema/Chronic Venous stasis: encourage leg elevation, Continue Lasix 20 mg for leg swelling H/O CAD continue aspirin, BB, atorvastatin Hypothyroidism: continue Levothyroxine H/O Asthma: no signs of exacerbation Mood disorder continue escitalopram and trazodone DVT px: SCDs Code Status: Full Code Disposition: PT/OT, enrollment services vice president consulted Needs Rehab placement. Vital Signs: Date Time Temp Pulse Resp B/P (MAP) Pulse Ox O2 Delivery O2 Flow Rate FiO2 09/17/17 07:53 36.8 67 20 105/71 (82) 95 09/17/17 00:00 Room Air 09/16/17 23:22 36.9 71 20 117/69 (85) 95 Room Air 09/16/17 23:17 70 98 2.0 09/16/17 20:00 Room Air 09/16/17 15:15 Room Air 09/16/17 15:12 37.3 73 20 107/71 (27) 91 Lab Results: Results Past 24 Hours Test 09/16/17 11:23 09/16/17 16:37 09/16/17 19:55 09/17/17 06:05 Range/Units Bedside Glucose 252 165 219 70-90 mg/dl Hemoglobin 11.0 12.0-16.0 g/dL Hematocrit 34.7 37-47 % Sodium Level 141 136-145 mmol/L Potassium Level 3.7 3.5-5.1 mmol/L Chloride Level 107 98-107 mmol/L Carbon Dioxide Level 27 21-32 mmol/L Anion Gap 7.0 3-11 mmol/L Blood Urea Nitrogen 12 7-18 mg/dl Creatinine 0.76 0.60-1.20 mg/dl Est Creatinine Clear Calc Drug Dose 88.2 ml/min Estimated GFR () 97.4 Estimated GFR (Non- 84.1 BUN/Creatinine Ratio 16.4 10-20 Random Glucose 148 70-99 mg/dl Calcium Level 8.6 8.5-10.1 mg/dl Magnesium Level 2.0 1.8-2.4 mg/dl Test 09/17/17 07:34 Range/Units Bedside Glucose 142 70-90 mg/dl
--- NOTE | 2017-09-17 09:37 | Urology Consultation ---
History General Date of Service: Sep 17, 2017. Primary Care Physician: Nancy Matute M.D. (MEDICAL) Pt seen a urologist before?: Yes If yes, why?: UTIs; kidney stones History of Present Illness Pt consulted on by our service for the same general complaint during her most recent admission UTI with fevers - culture this time growing enterococcus with a variety of abx options - previously with MRSA bacteremia and a fungal UCx - numerous chronic medical issues - neurogenic bladder? -indwelling catheter CT: no identifiable structural or anatomical issues (stones, cysts, masses, notable hydro). Nova in a decompressed bladder Vital Signs Past 12 Hours Date Time Temp Pulse Resp B/P (MAP) Pulse Ox O2 Delivery O2 Flow Rate FiO2 09/17/17 07:53 36.8 67 20 105/71 (82) 95 09/17/17 00:00 Room Air 09/16/17 23:22 36.9 71 20 117/69 (85) 95 Room Air 09/16/17 23:17 70 98 2.0 09/17/17 06:05 09/17/17 06:05 Test 09/17/17 06:05 09/17/17 07:34 Anion Gap 7.0 mmol/L (3-11) Est Creatinine Clear Calc Drug Dose 88.2 ml/min Estimated GFR () 97.4 Estimated GFR (Non- 84.1 BUN/Creatinine Ratio 16.4 (10-20) Calcium Level 8.6 mg/dl (8.5-10.1) Magnesium Level 2.0 mg/dl (1.8-2.4) Bedside Glucose 142 mg/dl (70-90) Laboratory Labs were reviewed and are within normal limits unless listed below. Labs are available in the chart and at [facility] Problem List Medical Problems: (1) Abdominal pain Status: Acute (2) Abdominal pain Status: Acute (3) Bacteremia Status: Acute (4) Contusion of left hip Status: Acute (5) Contusion of left shoulder Status: Acute (6) Dehydration Status: Acute (7) Elevated troponin Status: Acute (8) Frequent falls Status: Acute (9) Hypoxia Status: Acute (10) Lactic acidosis Status: Acute (11) Left sided chest pain Status: Acute (12) UTI (urinary tract infection) Status: Acute (13) UTI (urinary tract infection) Status: Acute (14) UTI (urinary tract infection) Status: Acute (15) Weakness Status: Acute Past History depression, diabetes, hypertension, kidney stones, liver disease, urinary tract infection, other (CP; THAD) Past Surgical History: , orthopedic surgery Family History FH: CAD (coronary artery disease) MOTHER ([place] in her 50s) Social History Hx Tobacco Use In Past Year?: No Marital status: Housing status: lives with family Occupation status: disabled Immunizations History of Influenza Vaccine: Yes Influenza Vaccine Date: Jul 10, 2017 History of Tetanus Vaccine?: Yes Tetanus Immunization Date: May 01, 2017 History of Pneumococcal: Yes Pneumococcal Date: Jun 01, 2010 Allergies Coded Allergies: Penicillins (Verified Allergy, Intermediate, HIVES, 09/14/17) Medications Home Medications: Home Meds and Scripts Medications Dose Route/Sig Max Daily Dose Days Date Category Dose Instructions [place] 10MG/325MG (Acetaminophen/Hydrocodone Bitart) Tab 1 Tab PO BID PRN 07/30/17 Rx PRN PAIN Escitalopram Oxalate 10 Mg Tab 15 Mg PO QAM 30 07/14/17 Rx Take 1.5 tab by mouth every day Gabapentin 300 Mg Cap 600 Mg PO HS 07/12/17 Reported Duoneb (Ipratropium-Albuterol) 3 Ml Nebu 1 Treatment INH QID PRN 07/12/17 Reported Tenormin (Atenolol) 25 Mg Tab 25 Mg PO HS 06/30/17 Reported Potassium Chloride Cr (Potassium Chloride) 10 Meq Tab 1 Tab PO BID 06/30/17 Reported Levothyroxine Sodium 100 Mcg Tab 1 Tab PO DAILYBB 06/30/17 Reported TAKE WITH 88MCG TAB Levothyroxine Sodium 88 Mcg Tab 1 Tab PO DAILYBB 06/30/17 Reported TAKE WITH 100MCG TAB Proair Respiclick (Albuterol Sulfate) 108 Mcg/Act Aer 2 Puffs INH PRN PRN 06/30/17 Reported Colace (Docusate Sodium) 100 Mg Cap 1 Cap PO TID PRN 09/30/16 Reported Biotin 1 Mg Cap 1 Cap PO QAM 09/30/16 Reported Prilosec (Omeprazole) 20 Mg Capcr 20 Mg PO QAM 09/30/16 Reported Centrum Silver Adult 50+ (Multiple Vitamins W/ Minerals) 1 Tab Tab 1 Tab PO QAM 08/12/16 Reported Trazodone (Trazodone HCl) 50 Mg Tab 50 Mg PO HS 08/12/16 Reported Astelin Nasal [place] (Azelastine Hcl) 200 Sprays/30 Ml [place] 2 Sprays NA BID 08/12/16 Reported Benzonatate 100 Mg Cap 100 Mg PO TID PRN 08/12/16 Reported Nystatin Cream (Nystatin) 90 Appln/30 Gm Cr 0 EXT BID PRN 08/01/15 Reported APPLY TO AFFECTED AREA BID Aspirin Ec (Aspirin) 81 Mg Tab 81 Mg PO QAM 01/05/15 Reported Atorvastatin Calcium (Atorvastatin) 40 Mg Tab 40 Mg PO HS 01/05/15 Reported Danita (Fexofenadine Hcl) 180 Mg Tab 180 Mg PO DAILY PRN 01/05/15 Reported Glucophage (Metformin Hcl) 1,000 Mg Tab 1,000 Mg PO BID 01/05/15 Reported Flexeril (Cyclobenzaprine Hcl) 10 Mg Tab 10 Mg PO HS 01/05/15 Reported Lasix (Furosemide) 20 Mg Tab 20 Mg PO Q2D PRN 01/05/15 Reported Neurontin (Gabapentin) 300 Mg Cap 300 Mg PO BID 04/28/12 Reported Take 1 tab (300 mg) by mouth in morning and midday, then 2 tabs (600 mg) in PM. Inpatient Medications: Current Inpatient Medications Medications (Trade) Dose Ordered Sig/Betsy Route Start Time Stop Time Status Last Admin Dose Admin Ioversol (Optiray 320) 100 ml UD PRN IV 09/14/17 18:45 09/18/17 18:44 Ioversol (Optiray 320) 100 ml UD PRN IV 09/14/17 19:30 09/18/17 19:29 Acetaminophen (Tylenol Tab) 325 mg Q6H PRN PO 09/14/17 22:45 10/14/17 22:44 Insulin Aspart (novoLOG ASPART) SLIDING SCALE If C... ACHS SC 09/15/17 06:30 10/15/17 06:59 09/17/17 08:34 4 UNITS Glucose (Glucose 40% Gel) 15-30 GRAMS 15 GRAMS... UD PRN PO 09/14/17 22:45 10/14/17 22:44 Glucose (Glucose Chew Tab) 4-8 Tablets 4 Tabl... UD PRN PO 09/14/17 22:45 10/14/17 22:44 Dextrose (Dextrose 50% 50ML Syringe) 25-50ML OF 50% DW IV FOR... UD PRN IV 09/14/17 22:45 10/14/17 22:44 Glucagon (Glucagon Inj) 1 mg UD PRN SQ 09/14/17 22:45 10/14/17 22:44 Atenolol (Tenormin Tab) 25 mg HS PO 09/15/17 21:00 10/15/17 20:59 09/16/17 20:44 25 MG Atorvastatin Calcium (Lipitor Tab) 40 mg HS PO 09/15/17 21:00 10/15/17 20:59 09/16/17 20:43 40 MG Cyclobenzaprine HCl (Flexeril Tab) 10 mg HS PO 09/15/17 21:00 10/15/17 20:59 09/16/17 20:43 10 MG Escitalopram Oxalate (Lexapro Tab) 15 mg QAM PO 09/15/17 08:00 10/15/17 08:59 09/17/17 08:33 15 MG Fexofenadine HCl (Danita Tab) 180 mg DAILY PRN PO 09/14/17 22:45 10/14/17 22:44 Gabapentin (Neurontin Tab) 600 mg HS PO 09/15/17 21:00 10/15/17 20:59 09/16/17 20:42 600 MG Acetaminophen/ Hydrocodone Bitart ([place] 10/325 Tab) 1 tab QID PRN PO 09/14/17 22:45 09/28/17 22:44 09/15/17 16:25 1 TAB Levothyroxine Sodium (Synthroid Tab) 88 mcg DAILYBB PO 09/15/17 06:30 10/15/17 06:59 09/17/17 06:35 88 MCG Levothyroxine Sodium (Synthroid Tab) 100 mcg DAILYBB PO 09/15/17 06:30 10/15/17 06:59 09/17/17 06:35 100 MCG Multivitamins/ Minerals (Multivitamin W/ Minerals Tab) 1 tab QAM PO 09/15/17 08:00 10/15/17 08:59 09/17/17 08:33 1 TAB Trazodone HCl (Desyrel Tab) 50 mg HS PO 1/5/18 21:00 10/15/17 20:59 09/16/17 20:43 50 MG Miscellaneous Information (Order Awaiting Action) 1 ea QS N/A 09/15/17 08:00 10/15/17 07:59 Morphine Sulfate (MoRPHine SULFATE INJ) 4 mg Q6H PRN IV 09/14/17 22:45 09/28/17 22:44 Prochlorperazine Edisylate 5 mg/ Syringe 5 ml @ 5 mls/min Q6H PRN IV 09/14/17 22:45 10/14/17 22:44 Insulin Glargine (Lantus Solostar Pen) 5 units HS SC 09/15/17 21:00 10/15/17 20:59 09/16/17 20:47 5 UNITS Pantoprazole Sodium (Protonix Tab) 40 mg QAM PO 09/15/17 08:00 10/15/17 07:59 09/17/17 08:33 40 MG Gabapentin (Neurontin Cap) 300 mg BID@0900,1600 PO 09/15/17 09:00 10/15/17 08:59 09/17/17 08:33 300 MG Miconazole Nitrate (Desenex Powder) 1 appln PRN PRN EXT 09/15/17 13:30 10/15/17 13:29 Review of Systems Review of Systems Constitutional: + fever Eyes: No see HPI, No blurred vision, No double vision, No eye pain, No loss of night vision, No problem reported Neurological: No see HPI, No dizzy, No passing out, No numbness/tingling, No seizures, No problem reported Endocrine: No see HPI, No excessive thirst, No too hot, No too cold, No tired/ sluggish, No problem reported Gastrointestinal: + abdominal pain Cardiovascular: No see HPI, No heart murmur, No chest pain, No angina, No irregular heartbeat, No palpitations, No swelling ankles/feet, No problem reported Respiratory: No see HPI, No shortness of breath, No wheezing, No coughing up blood, No chronic cough, No problem reported Skin: No see HPI, No rash, No boils, No dry skin, No problem reported Musculoskeletal: No see HPI, No joint pain, No neck pain, No back pain, No arthritis, No problem reported Blood / Lymphatic: No see HPI, No bleed easily, No bruise easily, No swollen glands, No problem reported Ears / Nose / Throat: No see HPI, No hearing loss, No sinus, No hoarse voice, No sore throat, No problem reported Psychologic / Mental: No see HPI, No nervous, No trouble remembering, No difficulty sleeping, No problem reported Female : + urinary retention, + infections, + problem reported All Other Systems: Reviewed and Negative Physical Exam Vital Signs: Vital Signs Past 12 Hours Date Time Temp Pulse Resp B/P (MAP) Pulse Ox O2 Delivery O2 Flow Rate FiO2 09/17/17 07:53 36.8 67 20 105/71 (82) 95 09/17/17 00:00 Room Air 09/16/17 23:22 36.9 71 20 117/69 (85) 95 Room Air 09/16/17 23:17 70 98 2.0 Physical Exam: General Appearance: WD/WN, no apparent distress (in bed, but comfortable appearing) Eyes: bilateral eyes normal inspection ENT: hearing grossly normal Neck: no adenopathy Respiratory/Chest: no respiratory distress, no accessory muscle use Cardiovascular: no edema Gastrointestinal: Abdomen: normal abdomen Extremities: normal inspection Neurologic/Psychiatric: alert, normal mood/affect, oriented x 3 Skin: normal color Lymphatic: no adenopathy Assessment & Plan Assessment & Plan UTI with fevers - no clear role for any surgical intervention - continue abx - follows with Dr. Bruce as an outpt - immobility, nova, recent abx, DM - all are risk factors for recurrence - unfortunately, these are not issues that can be easily corrected from a surgical/ standpoint - continue medical management of all issues
[2017-09-17 15:54] VITALS: BP 91/56; PULSE 66; TEMP 37; O2SAT 94
[2017-09-17 16:00] VITALS: O2SAT 94
[2017-09-17] MEDS: ACETAMINOPHEN 325 MG TAB PO PRN (18:22)
[2017-09-17] MEDS: ATORVASTATIN 40 MG TAB PO SCH (19:41)
[2017-09-17] MEDS: CYCLOBENZAPRINE HCL 10 MG TAB PO SCH (19:41)
[2017-09-17] MEDS: GABAPENTIN 600 MG TAB PO SCH (19:42)
[2017-09-17] MEDS: TRAZODONE HCL 50 MG TAB PO SCH (19:43)
[2017-09-17] MEDS: INSULIN GLARGINE SOLOSTAR 100 UNITS/ML 3 ML PEN SC SCH (20:21)
[2017-09-17 23:42] VITALS: PULSE 74; O2SAT 96
[2017-09-17 23:43] VITALS: BP 130/77; PULSE 74; TEMP 37; O2SAT 93
[2017-09-18] MEDS: LEVOTHYROXINE 100 MCG TAB PO SCH (06:26)
[2017-09-18] MEDS: LEVOTHYROXINE 88 MCG TAB PO SCH (06:26)
[2017-09-18 07:31] VITALS: BP 104/68; PULSE 68; TEMP 37; O2SAT 91
[2017-09-18] MEDS: PANTOprazole SOD 40 MG TAB PO SCH (09:03)
[2017-09-18] MEDS: ESCITALOPRAM OXALATE 10 MG TAB PO SCH (09:03)
[2017-09-18] MEDS: CEROVITE ADV FORMULA TAB PO SCH (09:04)
[2017-09-18] MEDS: GABAPENTIN 300 MG CAP PO SCH ×2 (09:05→16:26)
[2017-09-18] MEDS: INSULIN ASPART 100 UNITS/ML 3 ML PEN SC SCH ×4 (09:08→21:29)
[2017-09-18] MEDS: ACETAMINOPHEN 325 MG TAB PO PRN ×2 (09:17→20:18)
[2017-09-18] MEDS: HYDROCODONE/ACETAMI 10/325 TAB PO PRN (09:21)
--- NOTE | 2017-09-18 09:35 | Progress Note ---
Subjective Date of Service: Sep 18, 2017. Subjective Pt evaluation today including: conversation w/ patient, chart review, lab review Voiding: nova catheter in place (patent, draining clear, yellow urine ) 62 yo female admitted with UTI. Pt c/o some suprapubic discomfort, but otherwise feels well. UC&S growing enterobacter. It does not appear that she is currently on any abx. Problem List Medical Problems: (1) Abdominal pain Status: Acute (2) Abdominal pain Status: Acute (3) Bacteremia Status: Acute (4) Contusion of left hip Status: Acute (5) Contusion of left shoulder Status: Acute (6) Dehydration Status: Acute (7) Elevated troponin Status: Acute (8) Frequent falls Status: Acute (9) Hypoxia Status: Acute (10) Lactic acidosis Status: Acute (11) Left sided chest pain Status: Acute (12) UTI (urinary tract infection) Status: Acute (13) UTI (urinary tract infection) Status: Acute (14) UTI (urinary tract infection) Status: Acute (15) Weakness Status: Acute Review of Systems Constitutional: No fever, No chills Respiratory: No shortness of breath Cardiac: No chest pain Abdomen: No pain, No nausea, No vomiting Female : No hematuria Heme: No abnormal bleeding/bruising Objective Vital Signs Date Time Temp Pulse Resp B/P (MAP) Pulse Ox O2 Delivery O2 Flow Rate FiO2 09/18/17 07:31 37.0 68 20 104/68 (80) 91 Room Air 09/18/17 00:10 Room Air 09/17/17 23:43 37.0 74 20 130/77 (94) 93 Room Air 09/17/17 23:42 74 96 2.0 09/17/17 16:00 94 Room Air 2.0 09/17/17 15:54 37.0 66 20 91/56 (68) 94 Room Air Physical Exam General Appearance: no apparent distress, + obese Eyes: normal inspection ENT: hearing grossly normal Neck: no JVD Respiratory/Chest: no respiratory distress, no accessory muscle use Cardiovascular: no JVD Extremities: normal inspection Neurologic/Psychiatric: alert, normal mood/affect, oriented x 3 Skin: normal color Laboratory Results Last 24 Hours Test 09/17/17 11:15 09/17/17 16:30 09/17/17 20:13 09/18/17 07:46 Bedside Glucose 248 mg/dl 194 mg/dl 163 mg/dl 142 mg/dl Assessment and Plan A/P: UTI AFVSS. Continue nova catheter. Will start Cipro for positive UC&S. Recommend 7-10 days of therapy. Continue nova catheter. Will plan for outpatient cysto with Dr. Escobar as previously recommended at her outpatient f/u in July.
[2017-09-18] MEDS ORDERED: CIPROFLOXACIN 500 MG TAB PO SCH (10:00)
--- NOTE | 2017-09-18 10:57 | Clinical Documentation Query ---
Dr. JUAREZ [facility] : CLINICAL DOCUMENTATION QUERY Patient is a 62 year old female admitted for treatment of "complicated UTI". Noted to have presented with indwelling urethral catheter. As appropriate, consider documentation as suggested below in order to intimately link the catheter to the UTI, so as to avoid steel erector uncertainty at time of discharge. Thank you. In your clinical opinion is this patient being managed for: ( X ) UTI due to indwelling Cline catheter ( ) Not Agree ( ) Other explanation of clinical findings (Please Explain) ( ) Unable to determine (Please Define) ( ) Need to Discuss The medical record reflects the following clinical findings, treatment, and risk factors. Clinical Indicators: As above Treatment: IVF, antibiotics Risk Factors: Gender, obesity, indwelling urethral catheter. Please clarify and document your clinical opinion in the progress notes and discharge summary. Terms such as "probable", "suspected", "likely", "questionable", "possible", or "still to be ruled out" are acceptable. IF IN AGREEMENT, YOU MUST DOCUMENT ABOVE DIAGNOSTIC STATEMENT IN DAILY PROGRESS NOTES AND DISCHARGE SUMMARY. This document is not part of the patient's record. Thank You, Aubrey Poe, RN [phone]
--- NOTE | 2017-09-18 13:08 | Progress Note ---
Internal Med Progress Note Date of Service: Sep 18, 2017. Provider Documentation: SUBJECTIVE: Patient is seen and examined at bedside Denies dysuria, abdominal pain, chest pain, SOB, dizziness No other complaints Patient prefers to be discharged to Rehab as she doesn't feel comfortable going home OBJECTIVE: Vital Signs-as noted below Physical Exam: General Appearance:Obese, no apparent distress Head: normocephalic, Atraumatic Eyes: normal inspection, EOMI, PERRL Neck: supple, Trachea midline Respiratory/Chest: Decreased breath sounds, CTA Cardiovascular: S1, S2, No murmur Abdomen/GI:Soft, Non tender, Bowel sounds present, Obese Extremities/Musculoskelatal:normal inspection, Trace edema Neurologic/Psych:AAOX3, grossly no focal neurological deficits Skin: normal color, warm Lab data as noted below. ASSESSMENT & PLAN: Complicated UTI: Could be secondary to Indwelling catheter related Presented with right sided Abdominal pain, nausea, diarrhea Urine culture: Enterobacter Continue Ceftriaxone Day # 4>>Bactrim Day #1 Blood cultures:No growth to date Changed Cline catheter Urology consulted. Previously seen by Voiding trial as per Urology Diarrhea resolved DM II: Last A1C:8.4 on 07/29/17 Hold Metformin ISS, Lantus Monitor blood sugar levels H/O MRSA Bacteremia and C.diff : Completed IV Vancomycin therapy prior to admission H/O Internal Hemorrhoids: Reports noticing blood in stools intermittently Hb at baseline Cerebral Palsy: minimally ambulatory and leg strength weaker than upper extremity strength PT/OT Chronic B/L LE edema/Chronic Venous stasis: encourage leg elevation, Continue Lasix 20 mg for leg swelling H/O CAD continue aspirin, BB, atorvastatin Hypothyroidism: continue Levothyroxine H/O Asthma: no signs of exacerbation Mood disorder continue escitalopram and trazodone DVT px: SCDs Code Status: Full Code Disposition: Stable for discharge. Needs Rehab placement Follow up with your PCP on 09/22/17 at 1:45pm Complete the antibiotic course as prescribed Follow up with your Urologist as advised Seek immediate medical attention if your symptoms reoccur or worsen Vital Signs: Date Time Temp Pulse Resp B/P (MAP) Pulse Ox O2 Delivery O2 Flow Rate FiO2 09/18/17 09:00 Room Air 09/18/17 07:31 37.0 68 20 104/68 (80) 91 Room Air 09/18/17 00:10 Room Air 09/17/17 23:43 37.0 74 20 130/77 (94) 93 Room Air 09/17/17 23:42 74 96 2.0 09/17/17 16:00 94 Room Air 2.0 09/17/17 15:54 37.0 66 20 91/56 (68) 94 Room Air Lab Results: Results Past 24 Hours Test 09/17/17 16:30 09/17/17 20:13 09/18/17 07:46 09/18/17 11:42 Range/Units Bedside Glucose 194 163 142 199 70-90 mg/dl
[2017-09-18] MEDS ORDERED: SULF-302 PO (13:11)
[2017-09-18] MEDS ORDERED: DIPH25CA5 PO (13:11)
--- NOTE | 2017-09-18 13:13 | Discharge Summary ---
Discharge Summary Date of Service Sep 18, 2017. Discharge Summary Admission Date: Sep 14, 2017 at 21:50 Discharge Date: Sep 18, 2017 Discharge Disposition: Home with services
--- NOTE | 2017-09-18 13:13 | Discharge Instructions ---
Discharge Instructions Date of Service Sep 18, 2017. Admission Reason for Admission: Complicated Uti Discharge Discharge Diagnosis / Problem: Complicated UTI Discharge Goals Goal(s): Decrease discomfort, Improve function Activity Recommendations Activity Limitations: resume your previous activity Exercise/Sports Limitations: as tolerated . Instructions / Follow-Up Instructions / Follow-Up Follow up with your PCP on 09/22/17 at 1:45pm Complete the antibiotic course as prescribed Follow up with your Urologist as advised Seek immediate medical attention if your symptoms reoccur or worsen Current Hospital Diet Patient's current hospital diet: AHA Diet (Heart Healthy), Diabetes Type 2 Diet Discharge Diet Recommended Diet: AHA Diet (Heart Healthy), Diabetes Type 2 Diet Pending Studies Studies pending at discharge: no Laboratory Results Hemoglobin A1c Test 07/29/17 06:24 Range/Units Estimated Average Glucose 194 mg/dl Hemoglobin A1c 8.4 H 4.5-5.6 % Medical Emergencies . Who to Call and When: Medical Emergencies: If at any time you feel your situation is an emergency, please call 911 immediately. . Non-Emergent Contact Non-Emergency issues call your: Primary Care Provider, Urologist Call Non-Emergent contact if: you have a fever, your pain is not controlled, your pain is worsening, your pain is unusual for you, your pain is concerning you, you have any medication questions Seek immediate medical attention if your symptoms reoccur or worsen . . "Provider Documentation" section prepared by Que Dale. . VTE Core Measure Inpt VTE Proph given/why not?: SCD's
[2017-09-18] MEDS: SULFAMETHOXAZOLE/TRIMETHOPRIM DS 800/160MG TAB PO SCH ×2 (14:18→20:13)
[2017-09-18 14:41] VITALS: O2SAT 93
[2017-09-18 15:24] VITALS: BP 127/81; PULSE 76; TEMP 36.8; O2SAT 96
[2017-09-18] MEDS: GABAPENTIN 600 MG TAB PO SCH (20:13)
[2017-09-18] MEDS: ATORVASTATIN 40 MG TAB PO SCH (20:13)
[2017-09-18] MEDS: TRAZODONE HCL 50 MG TAB PO SCH (20:13)
[2017-09-18] MEDS: CYCLOBENZAPRINE HCL 10 MG TAB PO SCH (20:14)
[2017-09-18 20:20] VITALS: O2SAT 96
[2017-09-18] MEDS: INSULIN GLARGINE SOLOSTAR 100 UNITS/ML 3 ML PEN SC SCH (21:30)
[2017-09-18 23:14] VITALS: BP 104/62; PULSE 65; TEMP 37; O2SAT 94
[2017-09-18 23:59] VITALS: PULSE 76; O2SAT 96
[2017-09-19 06:07] LABS: BASO % 0.9 %; BASO ABS # 0.04 K/uL (0-0.2); EOS % 8.6 %; EOS ABS # 0.38 K/uL (0-0.5); HEMATOCRIT 34.9 % (37-47); HEMOGLOBIN 11.1 g/dL (12.0-16.0); IG# 0.01 K/uL (0.00-0.02); LYMPH ABS # 1.06 K/uL (1.2-3.4); MEAN CELL VOLUME 95.6 fL (80-100); MEAN CORPUSCULAR HEMOGLOBIN 30.4 pg (25-34); MEAN CORPUSCULAR HGB CONC 31.8 g/dl (32-36); MEAN PLATELET VOLUME 12.3 fL (7.4-10.4); MONO % 7.7 %; MONO ABS # 0.34 K/uL (0.11-0.59); NEUT % 58.6 %; NEUT ABS # 2.59 K/uL (1.4-6.5); PLATELET COUNT 133 K/uL (130-400); RED CELL DISTRIBUTION WIDTH CV 15.4 % (11.5-14.5); RED CELL DISTRIBUTION WIDTH SD 53.8 fL (36.4-46.3); WHITE BLOOD COUNT 4.42 K/uL (4.8-10.8)
[2017-09-19 06:49] LABS: CALCIUM 8.6 mg/dl (8.5-10.1); CREATININE 0.88 mg/dl (0.60-1.20); POTASSIUM 3.8 mmol/L (3.5-5.1)
[2017-09-19] MEDS: LEVOTHYROXINE 88 MCG TAB PO SCH (07:11)
[2017-09-19] MEDS: LEVOTHYROXINE 100 MCG TAB PO SCH (07:11)
[2017-09-19 07:16] VITALS: BP 116/65; PULSE 70; TEMP 37; O2SAT 94
[2017-09-19] MEDS: ESCITALOPRAM OXALATE 10 MG TAB PO SCH (08:49)
[2017-09-19] MEDS: CEROVITE ADV FORMULA TAB PO SCH (08:49)
[2017-09-19] MEDS: PANTOprazole SOD 40 MG TAB PO SCH (08:51)
[2017-09-19] MEDS: GABAPENTIN 300 MG CAP PO SCH ×2 (08:51→16:10)
[2017-09-19] MEDS: SULFAMETHOXAZOLE/TRIMETHOPRIM DS 800/160MG TAB PO SCH ×2 (08:51→21:11)
[2017-09-19] MEDS: INSULIN ASPART 100 UNITS/ML 3 ML PEN SC SCH ×4 (08:52→21:13)
--- NOTE | 2017-09-19 10:20 | Progress Note ---
Internal Med Progress Note Date of Service: Sep 19, 2017. Provider Documentation: SUBJECTIVE: Patient is seen and examined at bedside Doing well Denies dysuria, abdominal pain, chest pain, SOB, dizziness No other complaints Awaiting for rehab placement OBJECTIVE: Vital Signs-as noted below Physical Exam: General Appearance:Obese, no apparent distress Head: normocephalic, Atraumatic Eyes: normal inspection, EOMI, PERRL Neck: supple, Trachea midline Respiratory/Chest: Decreased breath sounds, CTA Cardiovascular: S1, S2, No murmur Abdomen/GI:Soft, Non tender, Bowel sounds present, Obese Extremities/Musculoskelatal:normal inspection, Trace edema Neurologic/Psych:AAOX3, grossly no focal neurological deficits Skin: normal color, warm Lab data as noted below. ASSESSMENT & PLAN: Complicated UTI: Could be secondary to Indwelling catheter related Presented with right sided Abdominal pain, nausea, diarrhea Urine culture: Enterobacter Continue Ceftriaxone Day # 4>>Bactrim Day #2 Blood cultures:No growth to date Changed Cline catheter Urology consulted. Previously seen by Voiding trial as per Urology as outpatient Diarrhea resolved DM II: Last A1C:8.4 on 07/29/17 Hold Metformin ISS, Lantus Monitor blood sugar levels H/O MRSA Bacteremia and C.diff : Completed IV Vancomycin therapy prior to admission H/O Internal Hemorrhoids: Reports noticing blood in stools intermittently Hb at baseline Cerebral Palsy: minimally ambulatory and leg strength weaker than upper extremity strength PT/OT Chronic B/L LE edema/Chronic Venous stasis: encourage leg elevation, Continue Lasix 20 mg for leg swelling H/O CAD continue aspirin, BB, atorvastatin Hypothyroidism: continue Levothyroxine H/O Asthma: no signs of exacerbation Mood disorder continue escitalopram and trazodone DVT px: SCDs Code Status: Full Code Disposition: Stable for discharge. Plan to discharge to Rehab facility when accepted Follow up with your PCP on 09/22/17 at 1:45pm Complete the antibiotic course as prescribed Follow up with your Urologist as advised Seek immediate medical attention if your symptoms reoccur or worsen Vital Signs: Date Time Temp Pulse Resp B/P (MAP) Pulse Ox O2 Delivery O2 Flow Rate FiO2 09/19/17 07:16 37.0 70 16 116/65 (82) 94 Room Air 09/19/17 00:25 Room Air 09/18/17 23:59 76 96 2.0 09/18/17 23:14 37.0 65 20 104/62 (76) 94 Room Air 09/18/17 20:20 96 Room Air 09/18/17 16:30 Room Air 09/18/17 15:24 36.8 76 20 127/81 (96) 96 Room Air 09/18/17 14:41 93 Lab Results: Results Past 24 Hours Test 09/18/17 11:42 09/18/17 16:47 09/18/17 20:33 09/19/17 05:54 Range/Units Bedside Glucose 199 198 210 70-90 mg/dl White Blood Count 4.42 4.8-10.8 K/uL Red Blood Count 3.65 4.2-5.4 M/uL Hemoglobin 11.1 12.0-16.0 g/dL Hematocrit 34.9 37-47 % Mean Corpuscular Volume 95.6 80-100 fL Mean Corpuscular Hemoglobin 30.4 25-34 pg Mean Corpuscular Hemoglobin Concent 31.8 32-36 g/dl Platelet Count 133 130-400 K/uL Mean Platelet Volume 12.3 7.4-10.4 fL Neutrophils (%) (Auto) 58.6 % Lymphocytes (%) (Auto) 24.0 % Monocytes (%) (Auto) 7.7 % Eosinophils (%) (Auto) 8.6 % Basophils (%) (Auto) 0.9 % Neutrophils # (Auto) 2.59 1.4-6.5 K/uL Lymphocytes # (Auto) 1.06 1.2-3.4 K/uL Monocytes # (Auto) 0.34 0.11-0.59 K/uL Eosinophils # (Auto) 0.38 0-0.5 K/uL Basophils # (Auto) 0.04 0-0.2 K/uL RDW Standard Deviation 53.8 36.4-46.3 fL RDW Coefficient of Variation 15.4 11.5-14.5 % Immature Granulocyte % (Auto) 0.2 % Immature Granulocyte # (Auto) 0.01 0.00-0.02 K/uL Sodium Level 140 136-145 mmol/L Potassium Level 3.8 3.5-5.1 mmol/L Chloride Level 107 98-107 mmol/L Carbon Dioxide Level 27 21-32 mmol/L Anion Gap 6.0 3-11 mmol/L Blood Urea Nitrogen 15 7-18 mg/dl Creatinine 0.88 0.60-1.20 mg/dl Est Creatinine Clear Calc Drug Dose 76.2 ml/min Estimated GFR () 81.6 Estimated GFR (Non- 70.4 BUN/Creatinine Ratio 17.2 10-20 Random Glucose 168 70-99 mg/dl Calcium Level 8.6 8.5-10.1 mg/dl Magnesium Level 2.0 1.8-2.4 mg/dl
[2017-09-19 11:23] VITALS: BP 116/65; PULSE 70; TEMP 37; O2SAT 94
[2017-09-19] MEDS: HYDROCODONE/ACETAMI 10/325 TAB PO PRN (12:46)
[2017-09-19] MEDS: ACETAMINOPHEN 325 MG TAB PO PRN (12:46)
[2017-09-19 15:09] VITALS: BP 118/76; PULSE 68; TEMP 36.9; O2SAT 92
[2017-09-19 21:10] VITALS: BP 117/71; PULSE 73
[2017-09-19] MEDS: CYCLOBENZAPRINE HCL 10 MG TAB PO SCH (21:11)
[2017-09-19] MEDS: TRAZODONE HCL 50 MG TAB PO SCH (21:11)
[2017-09-19] MEDS: GABAPENTIN 600 MG TAB PO SCH (21:11)
[2017-09-19] MEDS: ATORVASTATIN 40 MG TAB PO SCH (21:11)
[2017-09-19] MEDS: INSULIN GLARGINE SOLOSTAR 100 UNITS/ML 3 ML PEN SC SCH (21:12)
[2017-09-19 23:09] VITALS: BP 98/66; PULSE 72; TEMP 37; O2SAT 96
[2017-09-19 23:55] VITALS: PULSE 76; O2SAT 96
[2017-09-20] MEDS: LEVOTHYROXINE 88 MCG TAB PO SCH (06:50)
[2017-09-20] MEDS: LEVOTHYROXINE 100 MCG TAB PO SCH (06:50)
[2017-09-20 07:06] VITALS: BP 106/66; PULSE 62; TEMP 36.7; O2SAT 92
[2017-09-20 07:23] LABS: BASO % 0.7 %; BASO ABS # 0.03 K/uL (0-0.2); EOS % 8.1 %; EOS ABS # 0.36 K/uL (0-0.5); HEMATOCRIT 34.2 % (37-47); HEMOGLOBIN 10.8 g/dL (12.0-16.0); IG# 0.01 K/uL (0.00-0.02); LYMPH % 24.3 %; LYMPH ABS # 1.08 K/uL (1.2-3.4); MEAN CELL VOLUME 96.1 fL (80-100); MEAN CORPUSCULAR HEMOGLOBIN 30.3 pg (25-34); MEAN CORPUSCULAR HGB CONC 31.6 g/dl (32-36); MEAN PLATELET VOLUME 12.3 fL (7.4-10.4); MONO % 8.3 %; MONO ABS # 0.37 K/uL (0.11-0.59); NEUT % 58.4 %; PLATELET COUNT 135 K/uL (130-400); RED CELL DISTRIBUTION WIDTH CV 15.6 % (11.5-14.5); RED CELL DISTRIBUTION WIDTH SD 54.9 fL (36.4-46.3); WHITE BLOOD COUNT 4.45 K/uL (4.8-10.8)
[2017-09-20] MEDS: ESCITALOPRAM OXALATE 10 MG TAB PO SCH (07:41)
[2017-09-20] MEDS: SULFAMETHOXAZOLE/TRIMETHOPRIM DS 800/160MG TAB PO SCH (07:41)
[2017-09-20] MEDS: CEROVITE ADV FORMULA TAB PO SCH (07:41)
[2017-09-20] MEDS: PANTOprazole SOD 40 MG TAB PO SCH (07:41)
[2017-09-20] MEDS: GABAPENTIN 300 MG CAP PO SCH (07:42)
[2017-09-20] MEDS: INSULIN ASPART 100 UNITS/ML 3 ML PEN SC SCH ×2 (08:21→12:32)
--- NOTE | 2017-09-20 13:58 | Discharge Summary ---
Discharge Summary Date of Service Sep 20, 2017. Discharge Summary Admission Date: Sep 14, 2017 at 21:50 Discharge Date: Sep 20, 2017 Discharge Disposition: Rehab ([facility] ) Principal Diagnosis: COMPLICATED UTI Consultations: UROLOGY -[facility] Medication Reconciliation New Medications: Diphenhydramine Hcl (Benadryl) 25 Mg Cap 25 MG PO TID PRN for itching for 3 Days, #6 CAP Sulfamethoxazole-Trimethoprim (Smz-Tmp Ds) 1 Tab Tab 1 TAB PO Q12 for 4 Days, #8 TAB Continued Medications: Albuterol Sulfate (Proair Respiclick) 108 Mcg/Act Aer 2 PUFFS INH PRN PRN for SOB/Wheezing Aspirin (Aspirin Ec) 81 Mg Tab 81 MG PO QAM Atenolol (Tenormin) 25 Mg Tab 25 MG PO HS, TAB Atorvastatin (Atorvastatin Calcium) 40 Mg Tab 40 MG PO HS Azelastine Hcl (Astelin Nasal [place]) 200 Sprays/30 Ml [place] 2 SPRAYS NA BID, BTL Benzonatate (Benzonatate) 100 Mg Cap 100 MG PO TID PRN for Cough, #30 Biotin (Biotin) 1 Mg Cap 1 CAP PO QAM Cyclobenzaprine Hcl (Flexeril) 10 Mg Tab 10 MG PO HS, TAB Docusate Sodium (Colace) 100 Mg Cap 1 CAP PO TID PRN for Constipation, CAP Escitalopram Oxalate (Escitalopram Oxalate) 10 Mg Tab 15 MG PO QAM for 30 Days, #45 TAB Take 1.5 tab by mouth every day Fexofenadine Hcl (Danita) 180 Mg Tab 180 MG PO DAILY PRN for Allergies, TAB Furosemide (Lasix) 20 Mg Tab 20 MG PO Q2D PRN for Edema, TAB Gabapentin (Neurontin) 300 Mg Cap 300 MG PO BID, CAP Take 1 tab (300 mg) by mouth in morning and midday, then 2 tabs (600 mg) in PM. Gabapentin (Gabapentin) 300 Mg Cap 600 MG PO HS Hydrocodone/Acetaminophen 10MG/325MG ([place] 10MG/325MG) Tab 1 TAB PO BID PRN for Pain, #14 TAB PRN PAIN Ipratropium-Albuterol (Duoneb) 3 Ml Nebu 1 TREATMENT INH QID PRN for SOB/Wheezing, INHA Levothyroxine Sodium (Levothyroxine Sodium) 88 Mcg Tab 1 TAB PO DAILYBB TAKE WITH 100MCG TAB Levothyroxine Sodium (Levothyroxine Sodium) 100 Mcg Tab 1 TAB PO DAILYBB TAKE WITH 88MCG TAB Metformin Hcl (Glucophage) 1,000 Mg Tab 1000 MG PO BID, TAB Multiple Vitamins W/ Minerals (Centrum Silver Adult 50+) 1 Tab Tab 1 TAB PO QAM Nystatin (Nystatin Cream) 90 Appln/30 Gm Cr 0 EXT BID PRN for rash, #15 GM APPLY TO AFFECTED AREA BID Omeprazole (Prilosec) 20 Mg Capcr 20 MG PO QAM, CAP Potassium Chloride (Potassium Chloride Cr) 10 Meq Tab 1 TAB PO BID Trazodone Hcl (Trazodone) 50 Mg Tab 50 MG PO HS, TAB Admission Information HPI (per Admitting provider): DATE OF ADMISSION: 09/14/2017 PRIMARY CARE PHYSICIAN: Jorge Roberts MD. HISTORY OF PRESENT ILLNESS: History obtained from the patient, , and records. Medical history significant for mood disorder, fibromyalgia, hypertension, hyperlipidemia, fatty liver disease; sleep apnea, THAD on CPAP, DM2 on oral meds, chronic thrombocytopenia. cerebral palsy as per records Recent confinement July 2017 for MRSA bacteremia, deanna UTI. As per notes, blood culture on 07/26/2017 done at [facility] showed MRSA. Patient discharged on IV Vancomycin as per ID recommendation. Patient also came in with flank pain attributed to interval passage of punctate kidney stone. Deanna UTI treated with p.o. Diflucan. Patient discharged to Rehab w/ indwelling Cline catheter. As per the patient, she developed C. diff at rehabilitation hospital. Patient completed by treatment. Patient discharged home with a Cline catheter as per Urology recommendations until follow-up at urologist office November 2017 as per patient. Patient believes she needs the indwelling Cline catheter because she is prone to "bladder accidents" because she has trouble getting out of bed to the commode in time without the Cline catheter. She has not had a followup with PCP since discharge from rehabilitation hospital. Yesterday, the patient noted achy right-sided abdominal pain, with nausea. No emesis. Usual shortness of breath on exertion and cough productive of yellow sputum. Denies chest pain. Loose stools, intermittently bloody. No fevers. Some chills. Denies bladder discomfort. denies hematuria. Patient brought to the Emergency Room. MEDICAL HISTORY: As above. An EGD done September 2016 showed nonbleeding grade I esophageal varices, gastritis. Colonoscopy showed nonbleeding internal hemorrhoids. SURGICAL HISTORY: She has had dental surgery, gynecologic section, hip surgery, and tendon repair. HOME MEDICATIONS: Include gabapentin, DuoNeb, levothyroxine, Glucophage, Centrum, nystatin, Prilosec, potassium chloride, trazodone, benzonatate, Flexeril, Colace, Danita, Lasix, Neurontin, aspirin, Astelin, ProAir, atenolol, atorvastatin, and Biotin. ALLERGIES: PENICILLIN. FAMILY HISTORY: Heart disease. PERSONAL AND SOCIAL HISTORY: Nonsmoker. No chronic intake of alcoholic beverages, disabled. REVIEW OF SYSTEMS: As per HPI, all 10 systems, all other ROS are negative. Physical Exam (per Admitting): PHYSICAL EXAMINATION: VITAL SIGNS: Blood pressure noted to be 110/70, pulse rate 85, RR 20, temperature 36.9, and sats 97 on room air. GENERAL: Noted to be obese, uncomfortable. No respiratory distress. SKIN: Normal color, warm. HEENT: [place] palpable conjunctivae. No ptosis. Dry mucosa. NECK: Short neck. No tenderness. CHEST: Decreased breath sounds. No tenderness. HEART: Regular rate and rhythm. No murmur. ABDOMEN: Right-sided abdominal tenderness. Some distention. EXTREMITIES: Minimal LE edema. No tenderness. No gross deformities NEUROLOGIC: Coherent. No gross focality. Hospital Course Complicated UTI: secondary to Indwelling catheter related Presented with right sided Abdominal pain, nausea, diarrhea Urine culture: Enterobacter Treated with Ceftriaxone Day # 4> transitioned to Bactrim Day # 3 Blood cultures:No growth to date Changed Cline catheter Urology consulted. Previously seen by Voiding trial as per Urology as outpatient Diarrhea resolved medically stable to be transferred to acute rehab DM II: Last A1C:8.4 on 07/29/17 Metformin resumed on discharge ISS, Lantus Monitor blood sugar levels H/O MRSA Bacteremia and C.diff : Completed IV Vancomycin therapy prior to admission H/O Internal Hemorrhoids: Reports noticing blood in stools intermittently Hb at baseline Cerebral Palsy: minimally ambulatory and leg strength weaker than upper extremity strength PT/OT -recommends rehab Chronic B/L LE edema/Chronic Venous stasis: encourage leg elevation, Continue Lasix 20 mg for leg swelling H/O CAD continue aspirin, BB, atorvastatin Hypothyroidism: continue Levothyroxine H/O Asthma: no signs of exacerbation Mood disorder continue escitalopram and trazodone DVT px: SCDs Code Status: Full Code Disposition: Stable for discharge to [facility] for continued rehab Total time spent on discharge = 35 MINS This includes examination of the patient, discharge planning, medication reconciliation, and communication with other providers. Discharge Instructions Discharge Instructions Date of Service Sep 20, 2017. Admission Reason for Admission: Complicated Uti Discharge Discharge Diagnosis / Problem: COMPLICATED UTI Discharge Goals Goal(s): Decrease discomfort, Improve disease control, Diagnostic testing, Therapeutic intervention Activity Recommendations Activity Level: Assistance Required Therapies: Physical Therapy, Occupational Therapy . Additional Information Patient informed of condition: Yes Advance Directives: No DNR: No Level of Care: Acute Rehab Communicable Disease: No Prognosis: Stable Cline Catheter: Yes Instructions / Follow-Up Instructions / Follow-Up FOLLOW UP WITH FAMILY PHYSICIAN DR ROBERTS AFTER DISCHARGE FORM REHAB Complete the antibiotic course as prescribed Follow up with your Urologist as advised Seek immediate medical attention if your symptoms reoccur or worsen Current Hospital Diet Patient's current hospital diet: AHA Diet (Heart Healthy), Diabetes Type 2 Diet Discharge Diet Recommended Diet: AHA Diet (Heart Healthy), Diabetes Type 2 Diet Pending Studies Studies pending at discharge: no Laboratory Results Hemoglobin A1c Test 07/29/17 06:24 Range/Units Estimated Average Glucose 194 mg/dl Hemoglobin A1c 8.4 H 4.5-5.6 % Medical Emergencies . Who to Call and When: Medical Emergencies: If at any time you feel your situation is an emergency, please call 911 immediately. . Non-Emergent Contact Non-Emergency issues call your: Primary Care Provider . . "Provider Documentation" section prepared by Ledy Ocasio. . Core Measure Problem Core Measures: None Additional Copies To Nancy Roberts M.D. (MEDICAL)
== END 2017-09-20 14:10 | DRG 699 ==
LOC: C.EDB 14:53 → C.4E 21:50 → UNDOADMIN 21:50 → ENRESERV 22:03
PROVIDERS: ADMIT Internal Medicine; ATTEND Hospitalist
DX: T83.511A Infection and inflammatory reaction due to indwelling urethral catheter, initial encounter (principal); Z68.43 Body mass index [BMI] 50.0-59.9, adult; N39.0 Urinary tract infection, site not specified; E11.9 Type 2 diabetes mellitus without complications; E78.5 Hyperlipidemia, unspecified; E03.9 Hypothyroidism, unspecified; R19.7 Diarrhea, unspecified; K75.81 Nonalcoholic steatohepatitis (NASH); G80.9 Cerebral palsy, unspecified; R60.0 Localized edema; I87.8 Other specified disorders of veins; I25.10 Atherosclerotic heart disease of native coronary artery without angina pectoris; J45.909 Unspecified asthma, uncomplicated; E66.01 Morbid (severe) obesity due to excess calories; F39 Unspecified mood [affective] disorder; Z79.82 Long term (current) use of aspirin; Z79.84 Long term (current) use of oral hypoglycemic drugs; Z79.899 Other long term (current) drug therapy; Z86.14 Personal history of Methicillin resistant Staphylococcus aureus infection; Y84.6 Urinary catheterization as the cause of abnormal reaction of the patient, or of later complication, without mention of misadventure at the time of the procedure

== ENCOUNTER → 2017-10-19 | Outpatient (CLI) | payer BC, OTHER ==
[~2017-10-19] MED LIST changes: -DFL50 PO; +DIPH25CA5 PO; +ESCI10TA17 PO; +GABA-1219 PO; -GABA1CAP4 PO; -HYDR-4079 PO; +HYDR-4383 PO; +INSU100I23 SC; -LXP10 PO; +OXGN; -VANC1INJ94 IV
== END | disposition home or self-care (01) ==
LOC: C.LABSPEC 14:41
PROVIDERS: ATTEND Urology
DX: N20.0 Calculus of kidney (principal); N39.0 Urinary tract infection, site not specified

== ENCOUNTER 2017-10-30 10:41 | Day surgery (SDC) | payer BC, OTHER ==
[2017-10-18 14:52] VITALS: Ht 149.9 cm; Wt 118.2 kg
--- NOTE | 2017-10-18 14:59 | PAT Medication Instructions ---
Service Date Oct 18, 2017. Current Home Medication List Albuterol Sulfate (Proair Respiclick), 2 PUFFS INH PRN PRN for SOB/Wheezing Aspirin (Aspirin Ec), 81 MG PO QAM Atenolol (Tenormin), 25 MG PO HS Atorvastatin (Lipitor), 40 MG PO HS Azelastine Hcl (Astelin Nasal [place]), 2 SPRAYS NA BID Benzonatate (Benzonatate), 100 MG PO TID PRN for Cough Biotin (Biotin), 1 CAP PO QAM Cyclobenzaprine Hcl (Flexeril), 10 MG PO HS Diphenhydramine Hcl (Benadryl), 25 MG PO TID PRN for itching Docusate Sodium (Colace), 1 CAP PO TID PRN for Constipation Escitalopram (Lexapro), 15 MG PO HS Fexofenadine Hcl (Danita), 180 MG PO QAM PRN for Allergies Furosemide (Lasix), 20 MG PO Q2D PRN for Edema Gabapentin (Neurontin), 300 MG PO BID Gabapentin (Gabapentin), 600 MG PO HS Hydrocodone/Acetaminophen ([place] 10/325 Tab), 1 TAB PO BID PRN for N Ipratropium-Albuterol (Duoneb), 1 TREATMENT INH QID PRN for SOB/Wheezing Levothyroxine Sodium (Levothyroxine Sodium), 88 MCG PO QAM Levothyroxine Sodium (Levothyroxine Sodium), 100 MCG PO QAM Metformin Hcl (Glucophage), 1,000 MG PO BID Multiple Vitamins W/ Minerals (Centrum Silver Adult 50+), 1 TAB PO QAM Nystatin (Nystatin Cream), 0 EXT BID PRN for rash Omeprazole (Prilosec), 20 MG PO QAM Potassium Chloride (Potassium Chloride Cr), 1 TAB PO BID Trazodone Hcl (Trazodone), 50 MG PO HS [Vasaglar Kwikpen], 10 UNITS SC QPM Medication Instructions For Your Scheduled Surgery - Check with surgeon and prescribing physician for instructions: Aspirin (Aspirin Ec), 81 MG PO QAM - Hold the following medications 24 hours prior to surgery: Nystatin (Nystatin Cream), 0 EXT BID PRN for rash - Hold the following medications 48 hours prior to surgery: Metformin Hcl (Glucophage), 1,000 MG PO BID Azelastine Hcl (Astelin Nasal [place]), 2 SPRAYS NA BID Benzonatate (Benzonatate), 100 MG PO TID PRN for Cough Biotin (Biotin), 1 CAP PO QAM Diphenhydramine Hcl (Benadryl), 25 MG PO TID PRN for itching Docusate Sodium (Colace), 1 CAP PO TID PRN for Constipation Fexofenadine Hcl (Danita), 180 MG PO QAM PRN for Allergies Furosemide (Lasix), 20 MG PO Q2D PRN for Edema Multiple Vitamins W/ Minerals (Centrum Silver Adult 50+), 1 TAB PO QAM Potassium Chloride (Potassium Chloride Cr), 1 TAB PO BID - Take the following medications the morning of surgery with a sip of water: Omeprazole (Prilosec), 20 MG PO QAM Levothyroxine Sodium (Levothyroxine Sodium), 88 MCG PO QAM Levothyroxine Sodium (Levothyroxine Sodium), 100 MCG PO QAM Ipratropium-Albuterol (Duoneb), 1 TREATMENT INH QID PRN for SOB/Wheezing (if needed) Hydrocodone/Acetaminophen ([place] 10/325 Tab), 1 TAB PO BID PRN for N (okay to take up to 4 hours prior to surgery if needed) Gabapentin (Neurontin), 300 MG PO BID Albuterol Sulfate (Proair Respiclick), 2 PUFFS INH PRN PRN for SOB/Wheezing (if needed) - Take the following medications as scheduled the night before surgery: [Lisset Clement], 10 UNITS SC QPM Trazodone Hcl (Trazodone), 50 MG PO HS Potassium Chloride (Potassium Chloride Cr), 1 TAB PO BID Ipratropium-Albuterol (Duoneb), 1 TREATMENT INH QID PRN for SOB/Wheezing (if needed) Hydrocodone/Acetaminophen ([place] 10/325 Tab), 1 TAB PO BID PRN for N (if needed) Gabapentin (Gabapentin), 600 MG PO HS Gabapentin (Neurontin), 300 MG PO BID Furosemide (Lasix), 20 MG PO Q2D PRN for Edema (if needed) Fexofenadine Hcl (Danita), 180 MG PO QAM PRN for Allergies (if needed) Escitalopram (Lexapro), 15 MG PO HS Diphenhydramine Hcl (Benadryl), 25 MG PO TID PRN for itching (if needed) Docusate Sodium (Colace), 1 CAP PO TID PRN for Constipation (if needed) Cyclobenzaprine Hcl (Flexeril), 10 MG PO HS Benzonatate (Benzonatate), 100 MG PO TID PRN for Cough (if needed) Azelastine Hcl (Astelin Nasal [place]), 2 SPRAYS NA BID Atenolol (Tenormin), 25 MG PO HS Atorvastatin (Lipitor), 40 MG PO HS Albuterol Sulfate (Proair Respiclick), 2 PUFFS INH PRN PRN for SOB/Wheezing (if needed) If you have any questions please call us at [phone] or [phone] or [phone]
--- NOTE | 2017-10-18 16:04 | DIAGNOSTIC IMAGING REPORT ---
CHEST 2 VIEWS ROUTINE HISTORY: Preop. COMPARISON: Chest 09/14/2017. FINDINGS: There are low lung volumes. No pneumothorax. No pleural effusions. The heart is mildly enlarged. This remains unchanged. No evidence for edema. No focal lung consolidations. IMPRESSION: Stable mild cardiomegaly. Electronically signed by: Cecil Matthew M.D. 10/18/2017 4:03 PM Dictated Date/Time: 10/18/2017 4:01 PM
[~2017-10-30] VITALS: Ht 149.9 cm; Wt 118.2 kg
[~2017-10-30 10:41] MED LIST changes: -ALBU18002 INH; -ASPI81TA28 PO; -ASTN; -ATEN-173 PO; -BENZ100C7 PO; -BIOT1CAP8 PO; +CIPROFLOXACIN / D5W 400 MG IV SCH; -CYCL10TA6 PO; -DOCU-94 PO; -FEXO1TAB46 PO; -GABA-1218 PO; -GABA-1219 PO; -HYDR-4383 PO; -INSU100I23 SC; -IPRASOL4 INH; +LACTATED RINGER'S 1000ML 1,000 ML IV SCH; +LACTATED RINGER'S 1000ML 500 ML IV SCH; -LEVO100T7 PO; -LEVO88TA3 PO; -LPT40 PO; -METF-384 PO; -MULT-845 PO; -NYSCR30 EXT; -OXGN; -POTA10TA30 PO; -PRLSR20 PO
--- NOTE | 2017-10-30 11:07 | History & Physical Bridge Note ---
H&P Re-Evaluation Bridge Note: I have examined the patient, reviewed the History & Physical and in the interval since the performance of the History & Physical I have noted the following changes of clinical significance: No changes noted
--- NOTE | 2017-10-30 11:09 | Discharge Instructions ---
Discharge Instructions Date of Service Oct 30, 2017. Admission Reason for Admission: Gross Hematuria Discharge Discharge Diagnosis / Problem: Bladder mass Discharge Goals Goal(s): Decrease discomfort, Improve function Activity Recommendations Activity Limitations: resume your previous activity Lifting Limitations: until after follow-up appointment Exercise/Sports Limitations: until after follow-up appointment Shower/Bathe: no limitations . Instructions / Follow-Up Instructions / Follow-Up Cline catheter care instructions. may have blood in urine. May have pelvic pain or discomfort. Call if any issues. Call if fevers. Current Hospital Diet Patient's current hospital diet: Discharge Diet Recommended Diet: Regular Diet Procedures Procedures Performed: Cystoscopy and TURBT Pending Studies Studies pending at discharge: no Medical Emergencies . Who to Call and When: Medical Emergencies: If at any time you feel your situation is an emergency, please call 911 immediately. . Non-Emergent Contact Non-Emergency issues call your: Primary Care Provider, Urologist Call Non-Emergent contact if: you have a fever, temperature is above 101, temperature is above 101.5, your pain is not controlled, your pain is worsening . . "Provider Documentation" section prepared by Tom Escobar,. . VTE Core Measure Inpt VTE Proph given/why not?: SCD's
[2017-10-30] MEDS ORDERED: OXYCODONE/ACETAMINOPHEN 7.5-325 TAB PO PRN (11:15)
[2017-10-30 11:44] VITALS: BP 126/61; PULSE 68; TEMP 37; O2SAT 94
[2017-10-30] MEDS ORDERED: ONDANSETRON INJ 2 MG/ML 2 ML VIAL IV PRN (12:00)
[2017-10-30] MEDS ORDERED: HYDROmorphone INJ 1 MG/ML SYR IV PRN (12:00)
[2017-10-30] MEDS ORDERED: EpHEDrine SULFATE INJ 50 MG/ML AMP IV PRN (12:00)
[2017-10-30] MEDS ORDERED: ATROPINE SULFATE 0.1 MG/ML 5ML SYR IV PRN (12:00)
[2017-10-30] MEDS ORDERED: ALBUT/IPRATROP 3MG/0.5MG NEB 3 ML VIAL INH ONE (12:00)
[2017-10-30 12:06] VITALS: PULSE 78; O2SAT 95
[2017-10-30 12:16] LABS: HEMATOCRIT 37.9 % (37-47); HEMOGLOBIN 12.3 g/dL (12.0-16.0); MEAN CORPUSCULAR HEMOGLOBIN 30.8 pg (25-34); MEAN CORPUSCULAR HGB CONC 32.5 g/dl (32-36); MEAN PLATELET VOLUME 12.3 fL (7.4-10.4); PLATELET COUNT 110 K/uL (130-400); RED CELL DISTRIBUTION WIDTH CV 15.3 % (11.5-14.5); RED CELL DISTRIBUTION WIDTH SD 52.9 fL (36.4-46.3); WHITE BLOOD COUNT 4.33 K/uL (4.8-10.8)
[2017-10-30 12:17] LABS: BASO % 0.5 %; BASO ABS # 0.02 K/uL (0-0.2); EOS % 7.4 %; EOS ABS # 0.32 K/uL (0-0.5); IG# 0.01 K/uL (0.00-0.02); LYMPH % 28.6 %; LYMPH ABS # 1.24 K/uL (1.2-3.4); MONO % 8.5 %; MONO ABS # 0.37 K/uL (0.11-0.59); NEUT % 54.8 %; NEUT ABS # 2.37 K/uL (1.4-6.5)
[2017-10-30] MEDS ORDERED: LIDOCAINE HCL 2% 2 ML VIAL (20MG/ML) ONE (12:41)
[2017-10-30] MEDS ORDERED: ONDANSETRON INJ 2 MG/ML 2 ML VIAL ONE (12:41)
[2017-10-30] MEDS ORDERED: SUCCINYLCHOLINE CHLORIDE 20 MG/ML 10 ML VIAL IV ONE (12:41)
[2017-10-30] MEDS ORDERED: PHENYLEPHRINE 100MCG/ML 5ML SYR ONE (12:41)
[2017-10-30] MEDS ORDERED: PROPOFOL IV EMULSION 10 MG/ML 20 ML VIAL IV ONE (12:41)
[2017-10-30] MEDS ORDERED: EpHEDrine SULFATE 50MG/5ML SYR ONE (12:41)
[2017-10-30] MEDS ORDERED: FENTANYL CITRATE INJ 50 MCG/1 ML 2 ML VIAL ONE (12:41)
[2017-10-30] MEDS ORDERED: PHEN-775 PO (12:56)
[2017-10-30] MEDS ORDERED: CIPR-255 PO (12:56)
[2017-10-30] MEDS ORDERED: OXYC1TAB3 PO (12:56)
[2017-10-30] MEDS ORDERED: DTR/5 PO (12:56)
[2017-10-30] MEDS ORDERED: Cysto-Conray II 17.2% 250ML BOTTLE ONE (13:00)
[2017-10-30] MEDS ORDERED: LARYING-O-JET KIT (LTA) ONE (13:42)
--- NOTE | 2017-10-30 13:46 | [facility] Operative Report ---
Operative Report Operative Date Oct 30, 2017. Pre-Operative Diagnosis Bladder Tumor. Gross Hematuria Post-Operative Diagnosis Same Procedure(s) Performed Cystoscopy, Bilateral Retrograde pyelogram, TURBT, Large. Surgeon Shawn Estimated Blood Loss Minimal Findings Large (6.2cm) tumor of posterior bladder. Specimens 1. Bladder Tumor. Drains 18 Fr Cline Anesthesia Type General Complication(s) none Disposition Recovery Room / PACU Indications Gross Hematuria and recurrent UTI> Found to have large bladder mass. Risks and benefits discussed with patient. Description of Procedure Patient was consented and brought back to the operating room. Patient was placed under anesthesia in the supine position and moved to the dorsal lithotomy position. Patient was prepped and draped in the regular sterile fashion. A time out was completed. A 30degree Cystoscope was placed into the bladder and the entire bladder was examined. The UO's were identified. The left followed by the right was cannulized with a catheter and a retrograde pyelogram was completed. No obvious filling defect or area of concern was noted. The bladder was assessed. The tumor in the posterior wall was assessed. At this point, the resection scope was placed. The tumor was resected. This was sent for pathologic analysis. The base was then resected and sent with the specimen. The edges were fulgurated. All bleeding was controlled. The area was assessed. The bladder was left partially full and the scope removed. A 18 Fr Cline was placed with good drainage. The patient was cleaned, aroused from anesthesia, and transferred to the pacu in stable condition having tolerated the procedure well with no complications. I was present and participated in all aspects of the procedure. The patient will be monitored in the PACU until transferred. I attest to the content of the Intraoperative Record and any orders documented therein. Any exceptions are noted below.
--- NOTE | 2017-10-30 13:53 | DIAGNOSTIC IMAGING REPORT ---
RETROGRADE INCLUDES KUB CLINICAL HISTORY: Retrograde urogram COMPARISON STUDY: No previous studies for comparison. FINDINGS: 12 seconds of fluoroscopic time was utilized. 5 fluoroscopic spot images are provided for interpretation. Bilateral retrogrades were performed. No ureteral or collecting system filling defects are visualized on the provided images. IMPRESSION: No evidence of significant hydronephrosis. No collecting system or ureteral filling defects are visualized Electronically signed by: Caesar Pedroza M.D. 10/30/2017 1:52 PM Dictated Date/Time: 10/30/2017 1:51 PM
[2017-10-30] MEDS: FENTANYL CITRATE INJ 50 MCG/1 ML 2 ML VIAL IV PRN ×4 (14:09→14:24)
--- NOTE | 2017-10-30 14:43 | Anesthesiology Progress Note ---
Anesthesia Post Op Note Date & Time Oct 30, 2017 at 14:43 Vital Signs Pain Intensity: 2 Vital Signs Past 12 Hours Date Time Temp Pulse Resp B/P (MAP) Pulse Ox O2 Delivery O2 Flow Rate FiO2 10/30/17 14:31 36.8 63 20 140/83 (98) 93 Nasal Cannula 2 10/30/17 14:30 140/83 10/30/17 14:29 131/110 10/30/17 14:27 74 26 93 10/30/17 14:27 68 26 10/30/17 14:26 151/ 10/30/17 14:22 71 19 97 10/30/17 14:22 71 19 10/30/17 14:21 145/78 10/30/17 14:17 66 10 10/30/17 14:17 66 10 98 10/30/17 14:16 140/109 10/30/17 14:12 65 9 10/30/17 14:12 65 9 99 10/30/17 14:11 150/94 10/30/17 14:07 67 14 10/30/17 14:07 67 14 99 10/30/17 14:06 137/75 10/30/17 14:02 70 16 98 10/30/17 14:02 71 16 10/30/17 14:01 70 11 10/30/17 14:01 70 11 150/88 97 10/30/17 14:00 164/118 10/30/17 13:57 164/106 10/30/17 13:56 36.8 72 16 164/106 (113) 96 Oxymask 10 10/30/17 12:06 78 14 95 Room Air 10/30/17 11:44 37 68 20 126/61 (82) 94 Room Air Notes Mental Status: alert / awake / arousable, participated in evaluation Pt Amnestic to Procedure: Yes Nausea / Vomiting: adequately controlled Pain: adequately controlled Airway Patency, RR, SpO2: stable & adequate BP & HR: stable & adequate Hydration State: stable & adequate Anesthetic Complications: no major complications apparent
[2017-10-30 14:55] VITALS: BP 143/86; PULSE 68; TEMP 36.6; O2SAT 93
[2017-10-30 15:25] VITALS: BP 112/73; PULSE 71; O2SAT 94
[2017-10-30 15:55] VITALS: BP 105/75; PULSE 70; TEMP 36.9; O2SAT 94
[2017-11-01] MEDS ORDERED: PRLSR20 PO (09:03)
[2017-11-01] MEDS ORDERED: BIOT1CAP8 PO (09:03)
[2017-11-01] MEDS ORDERED: DOCU-94 PO (09:04)
[2017-11-01] MEDS ORDERED: GABA-1218 PO (10:33)
== END 2017-10-30 16:10 | disposition home or self-care (01) ==
LOC: C.ACU 10:41
PROVIDERS: ATTEND Urology
DX: N30.20 Other chronic cystitis without hematuria (principal); M19.90 Unspecified osteoarthritis, unspecified site; J45.909 Unspecified asthma, uncomplicated; G80.9 Cerebral palsy, unspecified; N93.8 Other specified abnormal uterine and vaginal bleeding; E78.00 Pure hypercholesterolemia, unspecified; I10 Essential (primary) hypertension; R33.9 Retention of urine, unspecified; E66.01 Morbid (severe) obesity due to excess calories; Z68.43 Body mass index [BMI] 50.0-59.9, adult; Z99.3 Dependence on wheelchair; Z86.14 Personal history of Methicillin resistant Staphylococcus aureus infection; Z88.1 Allergy status to other antibiotic agents; Z79.82 Long term (current) use of aspirin; Z87.440 Personal history of urinary (tract) infections; Z82.49 Family history of ischemic heart disease and other diseases of the circulatory system; Z83.3 Family history of diabetes mellitus

== ENCOUNTER 2017-11-01 13:26 | Emergency (ER) | payer BC, OTHER ==
[~2017-11-01] VITALS: Ht 149.9 cm; Wt 120.0 kg
[~2017-11-01 13:26] MED LIST changes: +BIOT1CAP8 PO; +CIPR-255 PO; -CIPROFLOXACIN / D5W 400 MG IV SCH; +DOCU-94 PO; +DTR/5 PO; +GABA-1218 PO; -LACTATED RINGER'S 1000ML 1,000 ML IV SCH; -LACTATED RINGER'S 1000ML 500 ML IV SCH; +OXYC1TAB3 PO; +PHEN-775 PO; +PRLSR20 PO
[2017-11-01 13:44] VITALS: TEMP 37.3; Ht 149.9 cm; Wt 120.0 kg
[2017-11-01] MEDS ORDERED: HYDR-4383 PO (14:46)
[2017-11-01] MEDS ORDERED: OXGN (14:57)
[2017-11-01] MEDS ORDERED: SODIUM CHLORIDE 0.9% 1000ML 1,000 ML IV STA (15:00)
[2017-11-01] MEDS ORDERED: INSU100I23 SC (15:23)
--- NOTE | 2017-11-01 15:23 | DIAGNOSTIC IMAGING REPORT ---
CHEST ONE VIEW PORTABLE CLINICAL HISTORY: weakness COMPARISON STUDY: 10/18/2017 FINDINGS: The heart is enlarged. There is stable mediastinal fullness which may be secondary to fat deposition given the patient's body habitus There is a suboptimal inspiration. There is mild interstitial thickening which may be related to technical factors. There is no lobar consolidation. There are no pleural effusions.[ IMPRESSION: Cardiomegaly and mild interstitial prominence, a finding which may in part be secondary to suboptimal inspiration. No evidence of focal pulmonary consolidation Electronically signed by: Caesar Pedroza M.D. 11/01/2017 3:22 PM Dictated Date/Time: 11/01/2017 3:21 PM
--- NOTE | 2017-11-01 15:27 | EMERGENCY ROOM VISIT NOTE ---
History First contact with patient: 14:47 Chief Complaint: URINARY SYMPTOMS Stated Complaint: POSSIBLE CATH MISPLACEMENT/MALFUNCTION History of Present Illness The patient is a 62 year old female who presents to the Emergency Room with complaints of irritation of her Cline catheter. The patient reports that she had a bladder biopsy 2 days ago. The catheter is irritating her. She states that it is draining well but does not feel like it is sitting in the correct position. She has a home health nurse, but they have not been in for the past 2 days. Patient also states that she is feeling "lousy." She states that she has not been feeling well since her surgery and has difficulty getting around. She does have a walker and has home nursing at the house frequently. She reports she has a chronic cough and shortness of breath. Her bowel movements have been normal. She denies any fever/chills or chest pain. Review of Systems A complete 10 point review of systems was reviewed with the patient with pertinent positives and negatives as per history of present illness. All else were negative. Past Medical/Surgical History Medical Problems: (1) Asthma (2) Bilateral lower extremity edema (3) Cerebral palsy (4) Chronic pain (5) Complicated UTI (urinary tract infection) (6) DM type 2 (diabetes mellitus, type 2) (7) Dyslipidemia (8) Fibromyalgia (9) VIDA (generalized anxiety disorder) (10) History of migraine (11) Hypothyroidism (12) Major depressive disorder, recurrent, moderate (13) NG (nonalcoholic steatohepatitis) (14) Obesity, morbid (more than 100 lbs over ideal weight or BMI > 40) (15) Obstructive sleep apnea (16) Osteoarthritis (17) Venous insufficiency Surgical Problems: (1) H/O Achilles tendon repair (2) H/O section (3) H/O wisdom tooth extraction (4) History of D&C Family History FH: CAD (coronary artery disease) MOTHER ([place] in her 50s) Social History Smoking Status: Never Smoker Alcohol Use: none Marital Status: Housing Status: lives with family Occupation Status: disabled Current/Historical Medications Scheduled Aspirin (Aspirin Ec), 81 MG PO QAM Atenolol (Tenormin), 25 MG PO HS Atorvastatin (Lipitor), 40 MG PO HS Biotin (Biotin), 1 CAP PO QAM Ciprofloxacin Hcl (Cipro), 500 MG PO BID Cyclobenzaprine Hcl (Flexeril), 10 MG PO HS Escitalopram Oxalate (Lexapro), 15 MG PO DAILY Gabapentin (Neurontin), 300 MG PO BID Gabapentin (Gabapentin), 600 MG PO HS Jteqvmquvcf-Kmeeqgkharh-Dnb C- (Glucosamine 1500 Complex), 1 CAP PO TID Home O2 Therapy (Oxygen), 2 LITERS NA HS Insulin Glargine (Basaglar Kwikpen), 10 SC QPM Levothyroxine Sodium (Levothyroxine Sodium), 88 MCG PO QAM Levothyroxine Sodium (Levothyroxine Sodium), 100 MCG PO QAM Metformin Hcl (Glucophage), 1,000 MG PO BID Multiple Vitamins W/ Minerals (Centrum Silver Adult 50+), 1 TAB PO QAM Omeprazole (Prilosec), 20 MG PO QAM Oxybutynin Chloride (Ditropan), 5 MG PO Q8 Phenazopyridine Hcl (Pyridium), 200 MG PO TID Potassium Chloride (Potassium Chloride Cr), 1 TAB PO BID Trazodone Hcl (Trazodone), 50 MG PO HS Scheduled PRN Albuterol Sulfate (Proair Respiclick), 2 PUFFS INH PRN PRN for SOB/Wheezing Azelastine Hcl (Astelin Nasal Henderson), 2 SPRAYS NA BID PRN for Nasal Congestion Benzonatate (Benzonatate), 100 MG PO TID PRN for Cough Diphenhydramine Hcl (Benadryl), 25 MG PO TID PRN for itching Docusate Sodium (Colace), 1 CAP PO TID PRN for Constipation Fexofenadine Hcl (Danita), 180 MG PO QAM PRN for Allergies Furosemide (Lasix), 20 MG PO DAILY PRN for Edema Hydrocodone/Acetaminophen ([place] 10/325 Tab), 1 TAB PO BID PRN for N Ipratropium-Albuterol (Duoneb), 1 TREATMENT INH QID PRN for SOB/Wheezing Nystatin (Nystatin Cream), 0 EXT BID PRN for rash Oxycodone Immediate Rel Tab (Roxicodone Ir), 10 MG PO Q4H PRN for Severe Pain Physical Exam Vital Signs Date Time Temp Pulse Resp B/P (MAP) Pulse Ox O2 Delivery O2 Flow Rate FiO2 11/01/17 18:38 87 22 122/78 92 11/01/17 18:00 72 20 110/63 Room Air 11/01/17 16:56 76 20 122/91 91 11/01/17 15:57 76 20 108/84 91 Room Air 11/01/17 13:44 37.3 76 18 138/87 90 Room Air Physical Exam VITALS: Vitals are noted on the nurse's note and reviewed by myself. Vital signs stable. GENERAL: This is a 62-year-old female, obese, sitting up in bed. SKIN: The skin was without rashes. HEAD: Normocephalic atraumatic. EARS: External auditory canals clear, tympanic membranes pearly juarez without erythema or effusion bilaterally. EYES: Exotropia. Pupils equal round and reactive to light and accommodation. MOUTH: Mucous membranes moist. NECK: Supple without nuchal rigidity. HEART: Regular rate and rhythm without murmurs gallops or rubs. LUNGS: Clear to auscultation bilaterally without wheezes, rales or rhonchi. ABDOMEN: Positive bowel sounds x 4. Soft, nontender to palpation. NEURO: Patient was alert and oriented to person place and time. Medical Decision & Procedures ER Provider Diagnostic Interpretation: CHEST ONE VIEW PORTABLE CLINICAL HISTORY: weakness COMPARISON STUDY: 10/18/2017 FINDINGS: The heart is enlarged. There is stable mediastinal fullness which may be secondary to fat deposition given the patient's body habitus There is a suboptimal inspiration. There is mild interstitial thickening which may be related to technical factors. There is no lobar consolidation. There are no pleural effusions.[ IMPRESSION: Cardiomegaly and mild interstitial prominence, a finding which may in part be secondary to suboptimal inspiration. No evidence of focal pulmonary consolidation Laboratory Results 11/01/17 16:52 Red Blood Count 3.70, Mean Corpuscular Volume 95.4, Mean Corpuscular Hemoglobin 30.0, Mean Corpuscular Hemoglobin Concent 31.4, Mean Platelet Volume 12.3, Neutrophils (%) (Auto) 49.1, Lymphocytes (%) (Auto) 31.1, Monocytes (%) (Auto) 13.4, Eosinophils (%) (Auto) 5.8, Basophils (%) (Auto) 0.3, Neutrophils # (Auto ) 1.61, Lymphocytes # (Auto) 1.02, Monocytes # (Auto) 0.44, Eosinophils # (Auto ) 0.19, Basophils # (Auto) 0.01 11/01/17 15:38 11/01/17 16:52 Test 11/01/17 15:38 11/01/17 15:47 11/01/17 16:00 11/01/17 16:05 Anion Gap 7.0 mmol/L (3-11) Est Creatinine Clear Calc Drug Dose 76.5 ml/min Estimated GFR () 80.5 Estimated GFR (Non- 69.5 BUN/Creatinine Ratio 17.1 (10-20) Calcium Level 8.6 mg/dl (8.5-10.1) Total Bilirubin 0.8 mg/dl (0.2-1) Alanine Aminotransferase (ALT/SGPT) 41 U/L (12-78) Alkaline Phosphatase 126 U/L (45-117) Troponin I < 0.015 ng/ml (0-0.045) Total Protein 7.5 gm/dl (6.4-8.2) Albumin 3.3 gm/dl (3.4-5.0) Globulin 4.2 gm/dl (2.5-4.0) Albumin/Globulin Ratio 0.8 (0.9-2) Bedside Glucose 178 mg/dl (70-90) Urine Color ORANGE Urine Appearance SL CLOUDY (CLEAR) Urine pH 5.0 (4.5-7.5) Urine Specific [place] >= 1.030 (1.000-1.030) Urine Protein 2+ (NEG) Urine Glucose (UA) NEG (NEG) Urine Ketones TRACE (NEG) Urine Occult Blood 3+ (NEG) Urine Nitrite POS (NEG) Urine Bilirubin NEG (NEG) Urine Urobilinogen POS (NEG) Urine Leukocyte Esterase NEG (NEG) Urine Hyaline Casts (Auto) 1-5 /lpf (0-5) Urine RBC 5-10 /hpf (0-4) Urine WBC 1-5 /hpf (0-5) Urine Epithelial Cells 5-10 /lpf (0-5) Urine Crystals CALCIUM OXALATE (NONE Urine Bacteria NEG (NEG) Influenza Type A Antigen Neg for Influ A (NEG) Influenza Type B Antigen Neg for Influ B (NEG) Test 11/01/17 16:52 White Blood Count 3.28 K/uL (4.8-10.8) Red Blood Count 3.70 M/uL (4.2-5.4) Hemoglobin 11.1 g/dL (12.0-16.0) Hematocrit 35.3 % (37-47) Mean Corpuscular Volume 95.4 fL (80-100) Mean Corpuscular Hemoglobin 30.0 pg (25-34) Mean Corpuscular Hemoglobin Concent 31.4 g/dl (32-36) Platelet Count 108 K/uL (130-400) Mean Platelet Volume 12.3 fL (7.4-10.4) Neutrophils (%) (Auto) 49.1 % Lymphocytes (%) (Auto) 31.1 % Monocytes (%) (Auto) 13.4 % Eosinophils (%) (Auto) 5.8 % Basophils (%) (Auto) 0.3 % Neutrophils # (Auto) 1.61 K/uL (1.4-6.5) Lymphocytes # (Auto) 1.02 K/uL (1.2-3.4) Monocytes # (Auto) 0.44 K/uL (0.11-0.59) Eosinophils # (Auto) 0.19 K/uL (0-0.5) Basophils # (Auto) 0.01 K/uL (0-0.2) RDW Standard Deviation 52.4 fL (36.4-46.3) RDW Coefficient of Variation 15.2 % (11.5-14.5) Immature Granulocyte % (Auto) 0.3 % Immature Granulocyte # (Auto) 0.01 K/uL (0.00-0.02) Platelet Estimate DECREASED Red Blood Cell Morphology Unremarkable Magnesium Level 1.8 mg/dl (1.8-2.4) Aspartate Amino Transf (AST/SGOT) 40 U/L (15-37) Date/Time Source Procedure Growth Status 11/01/17 16:00 Urine,Catheterized Urine Culture - Final NO GROWTH - LESS THAN 1,000 COLONIES/ML Complete Medications Administered Medications (Trade) Dose Ordered Sig/Betsy Route Start Time Stop Time Status Last Admin Dose Admin Sodium Chloride 1,000 ml @ 999 mls/hr Q1H1M STAT IV 11/01/17 15:00 11/01/17 16:00 DC 11/01/17 15:56 999 MLS/HR ECG Per My Interpretation Rate (beats per minute): 70 Rhythm: normal sinus Findings: 1st degree AV block, no acute ischemic change, no ectopy Change: no significant change Medical Decision Differential diagnosis includes pneumonia, influenza, electrolyte abnormality, anemia, urinary tract infection, among others. The patient is a 62-year-old female who presents today complaining of urinary catheter irritation. The patient's Cline catheter was adjusted and was draining well. She felt better after this adjustment. Patient also states that she is not feeling well for the past few days. I likely suspect this is due to recovering from surgery. Labs revealed a mild pancytopenia which is chronic for the patient. Her LFTs are slightly elevated which is also chronic for the patient. Patient is not hypoglycemic. Urinalysis did show 3+ blood and nitrites, likely due to the blood rather than infection. There were no white blood cells or bacteria. This will be sent for culture. The patient was instructed to follow-up closely with her primary care provider. The patient's case was reviewed with Dr. Rowe, ED attending physician, who agreed with my assessment and treatment plan. Based on the patient's presentation and work up, I feel the patient is stable for outpatient treatment. The patient was educated to return to the emergency department for any worsening of their current condition or new/concerning symptoms. She will follow up with her PCP. Medication Reconcilliation Current Medication List: was personally reviewed by me Blood Pressure Screening Patient's blood pressure: Normal blood pressure Impression Primary Impression: Urinary catheter dysfunction Departure Information Dispostion Home / Self-Care Condition GOOD Referrals Nancy Matute M.D. (MEDICAL) (PCP) Patient Instructions My [facility] Additional Instructions Continue your medications as prescribed. Make sure to rest and drink plenty of fluids. Contact your primary care provider to schedule follow-up within 2 days from this visit. Return to the emergency department for worsening symptoms, fevers, or any other new/concerning symptoms.
[2017-11-01] MEDS ORDERED: ESCI1TAB6 PO (16:07)
[2017-11-01] MEDS ORDERED: GLUC15002 PO (16:07)
[2017-11-01 16:32] LABS: INFLUENZA B ANTIGEN Neg for Influ B (NEG)
[2017-11-01 16:38] LABS: ALBUMIN 3.3 gm/dl (3.4-5.0); ALKALINE PHOSPHATASE 126 U/L (45-117); ALT/SGPT 41 U/L (12-78); BLOOD UREA NITROGEN 15 mg/dl (7-18); CALCIUM 8.6 mg/dl (8.5-10.1); CARBON DIOXIDE 25 mmol/L (21-32); CREATININE 0.89 mg/dl (0.60-1.20); GLUCOSE 188 mg/dl (70-99); SODIUM 139 mmol/L (136-145); TOTAL PROTEIN 7.5 gm/dl (6.4-8.2)
[2017-11-01] MEDS ORDERED: NYSCR30 EXT (16:42)
[2017-11-01] MEDS ORDERED: LPT40 PO (17:20)
[2017-11-01] MEDS ORDERED: METF-384 PO (17:20)
[2017-11-01] MEDS ORDERED: CYCL10TA6 PO (17:20)
[2017-11-01] MEDS ORDERED: FEXO1TAB46 PO (17:20)
[2017-11-01] MEDS ORDERED: ASPI81TA28 PO (17:24)
[2017-11-01 17:26] LABS: POTASSIUM 3.7 mmol/L (3.5-5.1)
[2017-11-01 17:35] LABS: BASO % 0.3 %; BASO ABS # 0.01 K/uL (0-0.2); EOS % 5.8 %; EOS ABS # 0.19 K/uL (0-0.5); HEMATOCRIT 35.3 % (37-47); HEMOGLOBIN 11.1 g/dL (12.0-16.0); IG# 0.01 K/uL (0.00-0.02); LYMPH % 31.1 %; LYMPH ABS # 1.02 K/uL (1.2-3.4); MEAN CELL VOLUME 95.4 fL (80-100); MEAN CORPUSCULAR HGB CONC 31.4 g/dl (32-36); MEAN PLATELET VOLUME 12.3 fL (7.4-10.4); MONO % 13.4 %; MONO ABS # 0.44 K/uL (0.11-0.59); NEUT % 49.1 %; NEUT ABS # 1.61 K/uL (1.4-6.5); PLATELET COUNT 108 K/uL (130-400); RED CELL DISTRIBUTION WIDTH CV 15.2 % (11.5-14.5); RED CELL DISTRIBUTION WIDTH SD 52.4 fL (36.4-46.3); WHITE BLOOD COUNT 3.28 K/uL (4.8-10.8)
[2017-11-01] MEDS ORDERED: BENZ100C7 PO (17:45)
[2017-11-01 18:38] VITALS: BP 122/78; PULSE 87; O2SAT 92
[2017-11-01] MEDS ORDERED: IPRASOL4 INH (19:07)
[2017-11-01] MEDS ORDERED: GABA-1219 PO (19:07)
[2017-11-01] MEDS ORDERED: POTA10TA30 PO (20:31)
[2017-11-01] MEDS ORDERED: ATEN-173 PO (20:31)
[2017-11-01] MEDS ORDERED: LEVO88TA3 PO (20:31)
[2017-11-01] MEDS ORDERED: ALBU18002 INH (20:31)
[2017-11-01] MEDS ORDERED: LEVO100T7 PO (20:31)
[2017-11-01] MEDS ORDERED: ASTN (22:25)
[2017-11-01] MEDS ORDERED: MULT-845 PO (22:39)
== END 2017-11-01 18:40 | disposition home or self-care (01) ==
LOC: C.EDB 13:28 → C.EDA 18:40
DX: Z46.6 Encounter for fitting and adjustment of urinary device (principal); Z98.890 Other specified postprocedural states; D61.818 Other pancytopenia; R79.89 Other specified abnormal findings of blood chemistry; J45.909 Unspecified asthma, uncomplicated; G80.9 Cerebral palsy, unspecified; E11.9 Type 2 diabetes mellitus without complications; E78.5 Hyperlipidemia, unspecified; M79.7 Fibromyalgia; F41.1 Generalized anxiety disorder; E03.9 Hypothyroidism, unspecified; F33.1 Major depressive disorder, recurrent, moderate; K75.81 Nonalcoholic steatohepatitis (NASH); E66.01 Morbid (severe) obesity due to excess calories; G47.33 Obstructive sleep apnea (adult) (pediatric); M19.90 Unspecified osteoarthritis, unspecified site; I87.2 Venous insufficiency (chronic) (peripheral); Z79.82 Long term (current) use of aspirin; Z79.4 Long term (current) use of insulin; Z82.49 Family history of ischemic heart disease and other diseases of the circulatory system

== ENCOUNTER 2017-11-07 14:45 | Emergency (ER) | payer BC, OTHER ==
[~2017-11-07] VITALS: Ht 149.9 cm; Wt 124.3 kg
[~2017-11-07 14:45] MED LIST changes: +ALBU18002 INH; +ASPI81TA28 PO; +ASTN; +ATEN-173 PO; +BENZ100C7 PO; +CYCL10TA6 PO; -ESCI10TA17 PO; +ESCI1TAB6 PO; +FEXO1TAB46 PO; +GABA-1219 PO; +GLUC15002 PO; +HYDR-4383 PO; +INSU100I23 SC; +IPRASOL4 INH; +LEVO100T7 PO; +LEVO88TA3 PO; +LPT40 PO; +METF-384 PO; +MULT-845 PO; +NYSCR30 EXT; +OXGN; +POTA10TA30 PO
[2017-11-07 14:49] VITALS: TEMP 36.9; Ht 149.9 cm; Wt 124.3 kg
[2017-11-07] MEDS ORDERED: OXYCODONE HCL IR 5 MG TAB (IMMEDIATE RELEASE) PO STA (15:01)
--- NOTE | 2017-11-07 15:38 | DIAGNOSTIC IMAGING REPORT ---
L TIBIA/FIBULA 2 VIEWS ROUTINE CLINICAL HISTORY: Left tibial pain. Trauma. COMPARISON: None. DISCUSSION: No acute fractures or dislocations are visualized. Soft tissue calcifications are visualized within the lower leg posteriorly. IMPRESSION: No acute fractures identified Electronically signed by: Caesar Pedroza M.D. 11/07/2017 3:37 PM Dictated Date/Time: 11/07/2017 3:37 PM
--- NOTE | 2017-11-07 15:39 | DIAGNOSTIC IMAGING REPORT ---
L FOOT MIN 3 VIEWS ROUTINE CLINICAL HISTORY: Left foot pain status post trauma COMPARISON: None. DISCUSSION: There are soft tissue calcifications in the region of the Achilles tendon. No acute fractures are visualized. There are mild osteoarthritic changes. IMPRESSION: 1. No acute fractures 2. Achilles tendon calcification Electronically signed by: Caesar Pedroza M.D. 11/07/2017 3:38 PM Dictated Date/Time: 11/07/2017 3:37 PM
--- NOTE | 2017-11-07 15:40 | DIAGNOSTIC IMAGING REPORT ---
L ANKLE MIN 3 VIEWS ROUTINE CLINICAL HISTORY: Left ankle pain status post trauma COMPARISON: None. DISCUSSION: No acute fractures or dislocations are visualized. There are Achilles calcifications. The ankle mortise appears intact on these nonstress views. IMPRESSION: No acute fractures or dislocations. Electronically signed by: Caesar Pedroza M.D. 11/07/2017 3:39 PM Dictated Date/Time: 11/07/2017 3:38 PM
[2017-11-07 16:10] VITALS: BP 123/75; PULSE 73; O2SAT 92
--- NOTE | 2017-11-07 20:43 | EMERGENCY ROOM VISIT NOTE ---
History Report prepared by Tarah: Ezequiel Ryan Under the Supervision of: Dr. Richard Marsh D.O. First contact with patient: 14:48 Chief Complaint: ANKLE PAIN Stated Complaint: LT ANKLE PAIN History of Present Illness The patient is a 62 year old female who presents to the Emergency Room with complaints of worsening pain in her left ankle and leg that began yesterday following a falling episode. She rates the current pain in her left ankle as a 10/10 in severity. The patient states that she was using a step stool to get into her vehicle while supporting herself on the vehicle door. The door swung forward and the patient lost her balance. She was not able to move her left leg fast enough and her left leg collapsed under her weight. The patient's was there guiding her and broke her fall to the ground. She has no other complaints from the fall. She denies any trauma to her head, neck, or back. The patient currently has a Cline Catheter placed which she notes that she has had intermittently for the past 3 months. She denies headache, change in vision, fevers, chest pain, shortness of breath, nausea, vomiting, diarrhea, pain with urination, and melena. Source of History: patient Onset: Yesterday Position: ankle (left) Symptom Intensity: 10/10 Timing: worsening Associated Symptoms: No headache, No neck pain, No chest pain, No SOB, No back pain Review of Systems See HPI for pertinent positives & negatives. A total of 10 systems reviewed and were otherwise negative. Past Medical & Surgical Medical Problems: (1) Asthma (2) Bilateral lower extremity edema (3) Cerebral palsy (4) Chronic pain (5) Complicated UTI (urinary tract infection) (6) DM type 2 (diabetes mellitus, type 2) (7) Dyslipidemia (8) Fibromyalgia (9) VIDA (generalized anxiety disorder) (10) History of migraine (11) Hypothyroidism (12) Major depressive disorder, recurrent, moderate (13) NG (nonalcoholic steatohepatitis) (14) Obesity, morbid (more than 100 lbs over ideal weight or BMI > 40) (15) Obstructive sleep apnea (16) Osteoarthritis (17) Venous insufficiency Surgical Problems: (1) H/O Achilles tendon repair (2) H/O section (3) H/O wisdom tooth extraction (4) History of D&C Family History FH: CAD (coronary artery disease) MOTHER (DE in her 50s) Social History Smoking Status: Never Smoker Alcohol Use: none Marital Status: Housing Status: lives with family Occupation Status: disabled Current/Historical Medications Scheduled Aspirin (Aspirin Ec), 81 MG PO QAM Atenolol (Tenormin), 25 MG PO HS Atorvastatin (Lipitor), 40 MG PO HS Biotin (Biotin), 1 CAP PO QAM Ciprofloxacin Hcl (Cipro), 500 MG PO BID Cyclobenzaprine Hcl (Flexeril), 10 MG PO HS Escitalopram Oxalate (Lexapro), 15 MG PO DAILY Gabapentin (Neurontin), 300 MG PO BID Gabapentin (Gabapentin), 600 MG PO HS Emjtabgfsgf-Izyxtiudkvs-Rbm C- (Glucosamine 1500 Complex), 1 CAP PO TID Home O2 Therapy (Oxygen), 2 LITERS NA HS Insulin Glargine (Basaglar Kwikpen), 10 SC QPM Levothyroxine Sodium (Levothyroxine Sodium), 88 MCG PO QAM Levothyroxine Sodium (Levothyroxine Sodium), 100 MCG PO QAM Metformin Hcl (Glucophage), 1,000 MG PO BID Multiple Vitamins W/ Minerals (Centrum Silver Adult 50+), 1 TAB PO QAM Omeprazole (Prilosec), 20 MG PO QAM Oxybutynin Chloride (Ditropan), 5 MG PO Q8 Phenazopyridine Hcl (Pyridium), 200 MG PO TID Potassium Chloride (Potassium Chloride Cr), 1 TAB PO BID Trazodone Hcl (Trazodone), 50 MG PO HS Scheduled PRN Albuterol Sulfate (Proair Respiclick), 2 PUFFS INH PRN PRN for SOB/Wheezing Azelastine Hcl (Astelin Nasal [place]), 2 SPRAYS NA BID PRN for Nasal Congestion Benzonatate (Benzonatate), 100 MG PO TID PRN for Cough Diphenhydramine Hcl (Benadryl), 25 MG PO TID PRN for itching Docusate Sodium (Colace), 1 CAP PO TID PRN for Constipation Fexofenadine Hcl (Danita), 180 MG PO QAM PRN for Allergies Furosemide (Lasix), 20 MG PO DAILY PRN for Edema Hydrocodone/Acetaminophen ([place] 10/325 Tab), 1 TAB PO BID PRN for N Ipratropium-Albuterol (Duoneb), 1 TREATMENT INH QID PRN for SOB/Wheezing Nystatin (Nystatin Cream), 0 EXT BID PRN for rash Oxycodone Immediate Rel Tab (Roxicodone Ir), 10 MG PO Q4H PRN for Severe Pain Allergies Coded Allergies: Penicillins (Verified Allergy, Intermediate, HIVES, 11/07/17) Physical Exam Vital Signs Date Time Temp Pulse Resp B/P (MAP) Pulse Ox O2 Delivery O2 Flow Rate FiO2 11/07/17 16:10 73 18 123/75 92 Room Air 11/07/17 14:49 36.9 73 20 134/84 95 Room Air Physical Exam GENERAL: Sitting up in bed, alert, morbidly obese, disheveled, morbidly obese appearing. HEAD: Normocephalic, atraumatic. EYE EXAM: normal conjunctiva. PERRL and EOM's grossly intact. OROPHARYNX: no exudate, no erythema, lips, buccal mucosa, and tongue normal and mucous membranes are moist NECK: supple, no nuchal rigidity, no adenopathy, non-tender LUNGS: Clear to auscultation. Normal chest wall mechanics CHEST: Stable to compression anteriorly and posteriorly. PELVIS: Stable to compression anteriorly and posteriorly. HEART: no murmurs, S1 normal and S2 normal ABDOMEN: abdomen soft, non-tender, normo-active bowel sounds, no masses, no rebound or guarding. BACK: Back is symmetrical on inspection and there is no deformity, no midline tenderness, no CVA tenderness. SKIN: no rashes and no bruising UPPER EXTREMITIES: upper extremities are grossly normal. There is no tenderness with ROM/palpation. LOWER EXTREMITIES: No pitting edema. The patient is tender to palpation over the left mid arch, tracking up the the mid christine where bruising is present. All other joints are non-tender. NEURO EXAM: Normal sensorium, cranial nerves II-XII intact, normal speech, no weakness of arms, No focal deficit in upper extremities, The lower extremities are weak bilaterally. Weakness is equal. Medical Decision & Procedures ER Provider Diagnostic Interpretation: Radiology results as stated below per my review and the radiologist's interpretation: L ANKLE MIN 3 VIEWS ROUTINE CLINICAL HISTORY: Left ankle pain status post trauma COMPARISON: None. DISCUSSION: No acute fractures or dislocations are visualized. There are Achilles calcifications. The ankle mortise appears intact on these nonstress views. IMPRESSION: No acute fractures or dislocations. Electronically signed by: Caesar Pedroza M.D. 11/07/2017 3:39 PM Dictated Date/Time: 11/07/2017 3:38 PM L FOOT MIN 3 VIEWS ROUTINE CLINICAL HISTORY: Left foot pain status post trauma COMPARISON: None. DISCUSSION: There are soft tissue calcifications in the region of the Achilles tendon. No acute fractures are visualized. There are mild osteoarthritic changes. IMPRESSION: 1. No acute fractures 2. Achilles tendon calcification Electronically signed by: Caesar Pedroza M.D. 11/07/2017 3:38 PM Dictated Date/Time: 11/07/2017 3:37 PM L TIBIA/FIBULA 2 VIEWS ROUTINE CLINICAL HISTORY: Left tibial pain. Trauma. COMPARISON: None. DISCUSSION: No acute fractures or dislocations are visualized. Soft tissue calcifications are visualized within the lower leg posteriorly. IMPRESSION: No acute fractures identified Electronically signed by: Caesar Pedroza M.D. 11/07/2017 3:37 PM Dictated Date/Time: 11/07/2017 3:37 PM Medications Administered Medications (Trade) Dose Ordered Sig/Betsy Route Start Time Stop Time Status Last Admin Dose Admin Oxycodone HCl (Roxicodone Immediate Rel Tab) 5 mg NOW STAT PO 11/07/17 15:01 11/07/17 15:04 DC 11/07/17 15:51 5 MG ED Course ED COURSE: Vital signs were reviewed and showed normal vitals The patients medical record was reviewed The above diagnostic studies were performed and reviewed. ED treatments and interventions as stated above. 1452: The patient was evaluated in room C9. A complete history and physical examination was performed. 1501: Ordered Oxycodone HCl 5 mg PO. 1542: I checked on the patient at this time. She is doing well and getting pain meds. 1617: Upon reevaluation, the patient is laying ni bed.I discussed my findings with the patient and she understands and agrees with the treatment plan. Based on the patients age, coexisting illnesses, exam and lab findings the decision to treat as an outpatient was made. The patient remained stable while under my care. The patient appeared well at the time of discharge. Medical Decision Differential diagnosis: Etiologies such as fracture, dislocation, neurovascular compromise, compartment syndrome, soft tissue injury, as well as others were entertained Patient 60-year-old female who presents to the ER for left leg pain. This started yesterday after mechanical fall. She is trying to get into the car and misplaced her foot and fell onto it. On exam she does have bruising. X-ray show no obvious fractures of the left lower extremity. She was updated at bedside. She was given OxyIR. She is discharged follow-up with PCP as an outpatient. did feel comfortable taking her home. no other signs of trauma. She did not hit her head. Discussed with Pt concerning signs and symptoms to watch out for. Pt was instructed to follow up with their PCP and discussed with the patient their option to return to the ED at anytime for persistent or worsening symptoms. The appropriate anticipatory guidance and out- patient management, including indications for return to the emergency department , were explained at length to the patient and understood. Medication Reconcilliation Current Medication List: was personally reviewed by me Blood Pressure Screening Patient's blood pressure: Normal blood pressure Impression Primary Impression: Contusion of leg Scribe Attestation The scribe's documentation has been prepared under my direction and personally reviewed by me in its entirety. I confirm that the note above accurately reflects all work, treatment, procedures, and medical decision making performed by me. Departure Information Dispostion Home / Self-Care Referrals Nancy Matute M.D. (MEDICAL) (PCP) Forms HOME CARE DOCUMENTATION FORM, IMPORTANT VISIT INFORMATION Patient Instructions [facility] Additional Instructions Please follow up with your primary care doctor with in the next 24 hours. Any worsening of your symptoms, please return to the ED immediately. This includes any fevers greater than 100.4, worsening pain, chest pain, shortness breath, persistent nausea, vomiting, unable to eat or drink, or any other concerning signs or symptoms from your standpoint. You were given medications during this visit that will inhibit your ability to drive, operate machinery and work. Please do NOT drive, operate machinery, drink alcohol or work for the next 12hrs. Problem Qualifiers Primary Impression: Contusion of leg Encounter type: initial encounter Laterality: left Qualified Codes: S80.12XA - Contusion of left lower leg, initial encounter
== END 2017-11-07 16:54 | disposition home or self-care (01) ==
LOC: C.EDB 14:47 → C.EDC 16:54
DX: S80.12XA Contusion of left lower leg, initial encounter (principal); W08.XXXA Fall from other furniture, initial encounter; J45.909 Unspecified asthma, uncomplicated; E11.9 Type 2 diabetes mellitus without complications; M19.90 Unspecified osteoarthritis, unspecified site; E03.9 Hypothyroidism, unspecified; F41.8 Other specified anxiety disorders; E78.5 Hyperlipidemia, unspecified; Z79.82 Long term (current) use of aspirin; Z79.84 Long term (current) use of oral hypoglycemic drugs; Z99.81 Dependence on supplemental oxygen; Z96.0 Presence of urogenital implants; Z79.4 Long term (current) use of insulin; Z88.0 Allergy status to penicillin; Z82.49 Family history of ischemic heart disease and other diseases of the circulatory system

== ENCOUNTER 2017-11-17 11:17 | Emergency (ER) | payer BC, OTHER ==
[~2017-11-17] VITALS: Ht 149.9 cm; Wt 119.0 kg
[~2017-11-17 11:17] MED LIST changes: -DTR/5 PO; -PHEN-775 PO
[2017-11-17 11:23] VITALS: TEMP 36.9; Ht 149.9 cm; Wt 119.0 kg
--- NOTE | 2017-11-17 12:12 | EMERGENCY ROOM VISIT NOTE ---
History Report prepared by Tarah: Jarett Lou Under the Supervision of: Dr. Selvin Parker M.D. First contact with patient: 11:57 Chief Complaint: HEMATURIA Stated Complaint: VAGINAL BLEEDING Nursing Triage Summary: pt states she had recent bladder surgery and started with blood in the toilet after using the toilet last night difficult to get further information from pt about the bleeding History of Present Illness The patient is a 62 year old female who presents to the Emergency Room with complaints of persistent hematuria that started last night. She states that she had a biopsy done of her bladder with Dr. Escobar of [facility] [place] on the 30 of October. The patient says that the biopsy results showed no malignancy. She notes that she had bleeding for a couple days after the biopsy, but it went away. The patient states that she was not having any urinary problems until last night, when there was blood when she urinated. She states that she is not sure whether the blood is from the urine however. The patient does deny any burning with urination. The patient says that she then woke up this morning with a diaper "full of blood". She says that she does not feel herself today, and feels a bit dizzy. She notes that she had a catheter removed 4 days ago in the office. The patient did not have any Aspirin today. The patient states that she was not told by Dr. Escobar that there would be issues with bleeding like this. She says that she still has her uterus. Source of History: patient, family Onset: Last night Position: other (vaginal) Symptom Intensity: diaper "full of blood" Quality: other (bleeding with urination) Timing: other (persistent) Note: Associated symptoms: Dizziness. Denies burning with urination or worsening leg swelling. Review of Systems See HPI for pertinent positives & negatives. A total of 10 systems reviewed and were otherwise negative. Past Medical & Surgical Medical Problems: (1) Asthma (2) Bilateral lower extremity edema (3) Cerebral palsy (4) Chronic pain (5) Complicated UTI (urinary tract infection) (6) DM type 2 (diabetes mellitus, type 2) (7) Dyslipidemia (8) Fibromyalgia (9) VIDA (generalized anxiety disorder) (10) History of migraine (11) Hypothyroidism (12) Major depressive disorder, recurrent, moderate (13) NG (nonalcoholic steatohepatitis) (14) Obesity, morbid (more than 100 lbs over ideal weight or BMI > 40) (15) Obstructive sleep apnea (16) Osteoarthritis (17) Venous insufficiency Surgical Problems: (1) H/O Achilles tendon repair (2) H/O section (3) H/O wisdom tooth extraction (4) History of D&C Family History FH: CAD (coronary artery disease) MOTHER ([place] in her 50s) Social History Smoking Status: Never Smoker Alcohol Use: none Marital Status: Housing Status: lives with family Occupation Status: disabled Current/Historical Medications Scheduled Aspirin (Aspirin Ec), 81 MG PO QAM Atenolol (Tenormin), 25 MG PO HS Atorvastatin (Lipitor), 40 MG PO HS Biotin (Biotin), 1 CAP PO QAM Cyclobenzaprine Hcl (Flexeril), 10 MG PO HS Escitalopram Oxalate (Lexapro), 15 MG PO DAILY Gabapentin (Neurontin), 300 MG PO BID Gabapentin (Gabapentin), 600 MG PO HS Skhirqbkxyl-Euaemhuayfh-Xsh C- (Glucosamine 1500 Complex), 1 CAP PO TID Home O2 Therapy (Oxygen), 2 LITERS NA HS Insulin Glargine (Basaglar Kwikpen), 13 UNITS SC QPM Levothyroxine Sodium (Levothyroxine Sodium), 88 MCG PO QAM Levothyroxine Sodium (Levothyroxine Sodium), 100 MCG PO QAM Metformin Hcl (Glucophage), 1,000 MG PO BID Multiple Vitamins W/ Minerals (Centrum Silver Adult 50+), 1 TAB PO QAM Omeprazole (Prilosec), 20 MG PO QAM Potassium Chloride (Potassium Chloride Cr), 1 TAB PO BID Sulfa/Trimethoprim (Bactrim Ds 800MG/160MG), 1 TAB PO BID Trazodone Hcl (Trazodone), 50 MG PO HS Scheduled PRN Albuterol Sulfate (Proair Respiclick), 2 PUFFS INH PRN PRN for SOB/Wheezing Azelastine Hcl (Astelin Nasal Amity), 2 SPRAYS NA BID PRN for Nasal Congestion Benzonatate (Benzonatate), 100 MG PO TID PRN for Cough Diphenhydramine Hcl (Benadryl), 25 MG PO TID PRN for itching Docusate Sodium (Colace), 1 CAP PO TID PRN for Constipation Fexofenadine Hcl (Danita), 180 MG PO QAM PRN for Allergies Furosemide (Lasix), 20 MG PO DAILY PRN for Edema Hydrocodone/Acetaminophen ([place] 10/325 Tab), 1 TAB PO BID PRN for N Ipratropium-Albuterol (Duoneb), 1 TREATMENT INH QID PRN for SOB/Wheezing Nystatin (Nystatin Cream), 0 EXT BID PRN for rash Oxycodone Immediate Rel Tab (Roxicodone Ir), 10 MG PO Q4H PRN for Severe Pain Allergies Coded Allergies: Penicillins (Verified Allergy, Intermediate, HIVES, 11/17/17) Physical Exam Vital Signs Date Time Temp Pulse Resp B/P (MAP) Pulse Ox O2 Delivery O2 Flow Rate FiO2 11/17/17 16:43 72 16 123/82 93 Room Air 11/17/17 15:20 69 18 123/82 92 Room Air 11/17/17 13:24 65 16 166/73 94 Room Air 11/17/17 12:35 72 11/17/17 11:23 36.9 78 20 137/78 92 Physical Exam GENERAL: Patient is in no acute distress. HEENT: No acute trauma, normocephalic atraumatic, mucous membranes moist, no nasal congestion, no scleral icterus. NECK: No stridor, no adenopathy, no meningismus, trachea is midline. LUNGS: Clear to auscultation bilaterally, no wheeze, no rhonchi, breath sounds equal. HEART: 3/6 systolic murmur. Regular rate and rhythm. ABDOMEN: Soft, nontender, bowel sounds positive, no hernias, no peritonitis. EXTREMITIES: No cyanosis. Right more-so than left pedal edema, no erythema. Chronic skin change noted. Full range of motion of all the joints without pain or difficulty, no signs for acute trauma. PELVIC: Difficult exam secondary to the patient's inability to rest her legs on the stirrups, but no obvious vaginal bleeding noted with the exam. NEUROLOGIC: Oriented x 3, no acute motor or sensory deficits, no focal weakness. SKIN: No rash, no jaundice, no diaphoresis. Medical Decision & Procedures ER Provider Diagnostic Interpretation: US results as stated below per my review and radiologist interpretation: ULTRASOUND OF THE PELVIS CLINICAL HISTORY: Vaginal bleeding.. COMPARISON STUDY: Pelvic CT dated 09/14/2017. TECHNIQUE: Real-time, grayscale, and color flow sonography of the pelvis is performed transabdominally. The endovaginal examination was deferred. Images are reviewed in the transverse and longitudinal planes. The examination is degraded by large body habitus. FINDINGS: Uterus: The uterus is normal in size and echotexture, measuring 6.3 x 4.0 x 4.2 cm. Endometrium: The endometrium is normal in appearance, and the endometrial stripe is normal in thickness measuring up to 0.4 cm. Ovaries: The ovaries were not visualized on this transabdominal examination. Pelvis: There is no free fluid in the cul-de-sac. No concerning adnexal lesion is seen. IMPRESSION: 1. No acute sonographic abnormality is identified in the pelvis on this suboptimal transabdominal examination. 2. The ovaries were not visualized. No adnexal lesion is seen. Electronically signed by: Selvin Barroso M.D. 11/17/2017 3:10 PM Dictated Date/Time: 11/17/2017 3:08 PM Laboratory Results 11/17/17 12:15 Red Blood Count 4.02, Mean Corpuscular Volume 94.8, Mean Corpuscular Hemoglobin 30.1, Mean Corpuscular Hemoglobin Concent 31.8, Mean Platelet Volume 12.6, Neutrophils (%) (Auto) 60.9, Lymphocytes (%) (Auto) 23.7, Monocytes (%) (Auto) 9.2, Eosinophils (%) (Auto) 5.6, Basophils (%) (Auto) 0.3, Neutrophils # (Auto) 2.18, Lymphocytes # (Auto) 0.85, Monocytes # (Auto) 0.33, Eosinophils # (Auto) 0.20, Basophils # (Auto) 0.01 11/17/17 12:15 Test 11/17/17 12:15 11/17/17 13:25 White Blood Count 3.58 K/uL (4.8-10.8) Red Blood Count 4.02 M/uL (4.2-5.4) Hemoglobin 12.1 g/dL (12.0-16.0) Hematocrit 38.1 % (37-47) Mean Corpuscular Volume 94.8 fL (80-100) Mean Corpuscular Hemoglobin 30.1 pg (25-34) Mean Corpuscular Hemoglobin Concent 31.8 g/dl (32-36) Platelet Count 123 K/uL (130-400) Mean Platelet Volume 12.6 fL (7.4-10.4) Neutrophils (%) (Auto) 60.9 % Lymphocytes (%) (Auto) 23.7 % Monocytes (%) (Auto) 9.2 % Eosinophils (%) (Auto) 5.6 % Basophils (%) (Auto) 0.3 % Neutrophils # (Auto) 2.18 K/uL (1.4-6.5) Lymphocytes # (Auto) 0.85 K/uL (1.2-3.4) Monocytes # (Auto) 0.33 K/uL (0.11-0.59) Eosinophils # (Auto) 0.20 K/uL (0-0.5) Basophils # (Auto) 0.01 K/uL (0-0.2) RDW Standard Deviation 53.9 fL (36.4-46.3) RDW Coefficient of Variation 15.5 % (11.5-14.5) Immature Granulocyte % (Auto) 0.3 % Immature Granulocyte # (Auto) 0.01 K/uL (0.00-0.02) Large Platelets 1+ Prothrombin Time 10.7 SECONDS (9.0-12.0) Prothromb Time International Ratio 1.0 (0.9-1.1) Activated Partial Thromboplast Time 25.5 SECONDS (21.0-31.0) Partial Thromboplastin Ratio 1.0 Anion Gap 7.0 mmol/L (3-11) Est Creatinine Clear Calc Drug Dose 79.7 ml/min Estimated GFR () 85.1 Estimated GFR (Non- 73.4 BUN/Creatinine Ratio 15.9 (10-20) Calcium Level 9.0 mg/dl (8.5-10.1) Total Bilirubin 0.5 mg/dl (0.2-1) Aspartate Amino Transf (AST/SGOT) 29 U/L (15-37) Alanine Aminotransferase (ALT/SGPT) 30 U/L (12-78) Alkaline Phosphatase 128 U/L (45-117) Total Protein 7.6 gm/dl (6.4-8.2) Albumin 3.5 gm/dl (3.4-5.0) Globulin 4.1 gm/dl (2.5-4.0) Albumin/Globulin Ratio 0.9 (0.9-2) Urine Color ORANGE Urine Appearance CLOUDY (CLEAR) Urine pH 5.0 (4.5-7.5) Urine Specific Guys 1.027 (1.000-1.030) Urine Protein 2+ (NEG) Urine Glucose (UA) NEG (NEG) Urine Ketones NEG (NEG) Urine Occult Blood 3+ (NEG) Urine Nitrite NEG (NEG) Urine Bilirubin NEG (NEG) Urine Urobilinogen NEG (NEG) Urine Leukocyte Esterase MODERATE (NEG) Urine WBC (Auto) >30 /hpf (0-5) Urine RBC (Auto) >30 /hpf (0-4) Urine Hyaline Casts (Auto) 1-5 /lpf (0-5) Urine Epithelial Cells (Auto) 0-5 /lpf (0-5) Urine Bacteria (Auto) NEG (NEG) Laboratory results reviewed by me. Medications Administered Medications (Trade) Dose Ordered Sig/Betsy Route Start Time Stop Time Status Last Admin Dose Admin Cefepime HCl 1000 mg/Dextrose 111 ml @ 200 mls/hr NOW STAT IV 11/17/17 15:25 11/17/17 15:58 DC 11/17/17 15:53 200 MLS/HR ED Course 1200: The patient was evaluated in room A2. A complete history and physical exam was performed. 1340: The nursing staff did a cath urine on the patient, and they feel that the patient had vaginal bleeding in addition to maybe some blood in the urine. 1520: I reevaluated and updated the patient. 1525: Cefepime HCl 1000 mg/Dextrose 111 ml @ 200 mls/hr IV. 1547: I discussed the patient with Dr. Iza ESPINOZA - he will see the patient next week. 1639: I reevaluated the patient and updated her. 1615: I discussed the patient with Dr. Angelina Vanegas [facility] [facility] urology - he says the patient can go home and follow-up next week. 1630: Reevaluated the patient and she is resting comfortably. Discussed results and discharge instructions: she verbalized understanding and agreement. The patient is ready for discharge. Medical Decision Differential diagnosis includes but is not limited to hematuria, UTI, coagulopathy, anemia, rectal or vaginal bleeding. There is no leukocytosis. The white count and platelet count are slightly low which is baseline for the patient. No concerning anemia. No significant electrolyte abnormality, kidney failure or hepatitis. Urinalysis does suggest infection, urine culture is pending. No coagulopathy. Pelvic ultrasound does not show any large uterine mass or concerning abnormality. On my exam, there was no vaginal bleeding when the speculum was inserted. The patient received IV cefepime as antibiotic coverage. She will be using Bactrim twice a day for a week for the UTI. I have given her some reassurance. Certainly, her weakness and tiredness may be from the UTI. She is not anemic or need of a blood transfusion. She is not toxic or febrile. I did speak with CHEMISTRY TUTOR as well as urology. Outpatient follow-up next week was suggested. If things are worsening, the patient can return for reassessment. Medication Reconcilliation Current Medication List: was personally reviewed by me Blood Pressure Screening Patient's blood pressure: Elevated blood pressure Blood pressure disposition: Elevated BP felt to be situational Consults Time Called: 1543 Consulting Physician: Dr. Dhaval ESPINOZA Returned Call: [phone] I discussed the patient with Dr. Iza ESPINOZA - he will see the patient next week. Additional Consults: Time Called: 1611 Consulted Physician: Dr. Angelina MCKEON urology Returned Call: [phone] Additional Comments: I discussed the patient with Dr. Angelina MCKEON urology - he says the patient can go home and follow-up next week. Impression Primary Impression: Weakness Additional Impressions: Hematuria UTI (urinary tract infection) Scribe Attestation The scribe's documentation has been prepared under my direction and personally reviewed by me in its entirety. I confirm that the note above accurately reflects all work, treatment, procedures, and medical decision making performed by me. Departure Information Dispostion Home / Self-Care Prescriptions Sulfa/Trimethoprim (Bactrim Ds 800MG/160MG) Tab 1 TAB PO BID, #14 TAB Prov: Selvin Parker M.D. 11/17/17 Referrals Nancy Matute M.D. (MEDICAL) (PCP) Patient Instructions 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
[2017-11-17 12:34] LABS: HEMATOCRIT 38.1 % (37-47); HEMOGLOBIN 12.1 g/dL (12.0-16.0); MEAN CELL VOLUME 94.8 fL (80-100); MEAN CORPUSCULAR HEMOGLOBIN 30.1 pg (25-34); MEAN CORPUSCULAR HGB CONC 31.8 g/dl (32-36); MEAN PLATELET VOLUME 12.6 fL (7.4-10.4); PLATELET COUNT 123 K/uL (130-400); RED CELL DISTRIBUTION WIDTH CV 15.5 % (11.5-14.5); RED CELL DISTRIBUTION WIDTH SD 53.9 fL (36.4-46.3); WHITE BLOOD COUNT 3.58 K/uL (4.8-10.8)
[2017-11-17 12:35] LABS: PTT PATIENT 25.5 SECONDS (21.0-31.0)
[2017-11-17 12:41] LABS: ALBUMIN 3.5 gm/dl (3.4-5.0); CREATININE 0.85 mg/dl (0.60-1.20); POTASSIUM 4.1 mmol/L (3.5-5.1)
[2017-11-17 12:44] LABS: TOTAL PROTEIN 7.6 gm/dl (6.4-8.2)
[2017-11-17 12:56] LABS: BASO % 0.3 %; BASO ABS # 0.01 K/uL (0-0.2); EOS % 5.6 %; IG# 0.01 K/uL (0.00-0.02); LYMPH % 23.7 %; LYMPH ABS # 0.85 K/uL (1.2-3.4); MONO % 9.2 %; MONO ABS # 0.33 K/uL (0.11-0.59); NEUT % 60.9 %; NEUT ABS # 2.18 K/uL (1.4-6.5)
--- NOTE | 2017-11-17 15:11 | DIAGNOSTIC IMAGING REPORT ---
ULTRASOUND OF THE PELVIS CLINICAL HISTORY: Vaginal bleeding.. COMPARISON STUDY: Pelvic CT dated 09/14/2017. TECHNIQUE: Real-time, grayscale, and color flow sonography of the pelvis is performed transabdominally. The endovaginal examination was deferred. Images are reviewed in the transverse and longitudinal planes. The examination is degraded by large body habitus. FINDINGS: Uterus: The uterus is normal in size and echotexture, measuring 6.3 x 4.0 x 4.2 cm. Endometrium: The endometrium is normal in appearance, and the endometrial stripe is normal in thickness measuring up to 0.4 cm. Ovaries: The ovaries were not visualized on this transabdominal examination. Pelvis: There is no free fluid in the cul-de-sac. No concerning adnexal lesion is seen. IMPRESSION: 1. No acute sonographic abnormality is identified in the pelvis on this suboptimal transabdominal examination. 2. The ovaries were not visualized. No adnexal lesion is seen. Electronically signed by: Selvin Barroso M.D. 11/17/2017 3:10 PM Dictated Date/Time: 11/17/2017 3:08 PM
[2017-11-17] MEDS ORDERED: CEFEPIME IV 1,000 MG in DEXTROSE 5% 100ML 100 ML IV STA (15:25)
[2017-11-17] MEDS ORDERED: SULF800T23 PO (16:34)
[2017-11-17 16:43] VITALS: BP 123/82; PULSE 72; O2SAT 93
== END 2017-11-17 16:58 | disposition home or self-care (01) ==
LOC: C.EDB 11:18 → C.EDA 16:58
DX: R53.1 Weakness (principal); R31.9 Hematuria, unspecified; N39.0 Urinary tract infection, site not specified; J45.909 Unspecified asthma, uncomplicated; G80.9 Cerebral palsy, unspecified; G89.29 Other chronic pain; Z87.440 Personal history of urinary (tract) infections; E11.9 Type 2 diabetes mellitus without complications; E78.5 Hyperlipidemia, unspecified; M79.7 Fibromyalgia; F41.9 Anxiety disorder, unspecified; E03.9 Hypothyroidism, unspecified; F32.9 Major depressive disorder, single episode, unspecified; E66.01 Morbid (severe) obesity due to excess calories; G47.33 Obstructive sleep apnea (adult) (pediatric); M19.90 Unspecified osteoarthritis, unspecified site; I87.2 Venous insufficiency (chronic) (peripheral); Z82.49 Family history of ischemic heart disease and other diseases of the circulatory system; Z79.82 Long term (current) use of aspirin; Z79.899 Other long term (current) drug therapy; Z88.0 Allergy status to penicillin

== ENCOUNTER 2017-11-19 20:26 | Emergency (ER) | payer BC, OTHER ==
[~2017-11-19] VITALS: Ht 149.9 cm; Wt 120.0 kg
[~2017-11-19 20:26] MED LIST changes: -CIPR-255 PO; +SULF800T23 PO
[2017-11-19 20:28] VITALS: TEMP 37.1; Ht 149.9 cm; Wt 120.0 kg
[2017-11-19] MEDS ORDERED: DAPTOmycin IV 600 MG in SODIUM CHLORIDE 0.9% 50ML 50 ML IV STA (20:44)
[2017-11-19 21:19] LABS: HEMATOCRIT 35.5 % (37-47); HEMOGLOBIN 11.3 g/dL (12.0-16.0); MEAN CELL VOLUME 94.7 fL (80-100); MEAN CORPUSCULAR HEMOGLOBIN 30.1 pg (25-34); MEAN CORPUSCULAR HGB CONC 31.8 g/dl (32-36); MEAN PLATELET VOLUME 12.9 fL (7.4-10.4); PLATELET COUNT 108 K/uL (130-400); RED CELL DISTRIBUTION WIDTH CV 15.4 % (11.5-14.5); RED CELL DISTRIBUTION WIDTH SD 53.4 fL (36.4-46.3); WHITE BLOOD COUNT 2.78 K/uL (4.8-10.8)
[2017-11-19 21:33] LABS: ALBUMIN 3.4 gm/dl (3.4-5.0); CALCIUM 8.9 mg/dl (8.5-10.1); CREATININE 0.91 mg/dl (0.60-1.20); POTASSIUM 4.2 mmol/L (3.5-5.1)
[2017-11-19 21:36] LABS: TOTAL PROTEIN 7.3 gm/dl (6.4-8.2)
[2017-11-19] MEDS ORDERED: ALBUAER INH (21:37)
[2017-11-19] MEDS ORDERED: FLUT0.15 NAE (21:37)
[2017-11-19] MEDS ORDERED: BUSP-8 PO (21:37)
[2017-11-19] MEDS ORDERED: SULF800T23 PO (21:37)
[2017-11-19] MEDS ORDERED: INSDGI SC (21:37)
[2017-11-19] MEDS ORDERED: KFL/250 PO (21:39)
[2017-11-19 21:58] LABS: BASO % 0.4 %; BASO ABS # 0.01 K/uL (0-0.2); EOS % 7.2 %; LYMPH % 24.5 %; LYMPH ABS # 0.68 K/uL (1.2-3.4); MONO % 11.9 %; MONO ABS # 0.33 K/uL (0.11-0.59); NEUT ABS # 1.56 K/uL (1.4-6.5)
[2017-11-19] MEDS ORDERED: ACETAMINOPHEN 500 MG TAB PO STA (22:13)
[2017-11-19] MEDS ORDERED: NITROFURANTOIN MONOHYDRATE 100 MG CAP PO ONE (22:15)
[2017-11-19] MEDS ORDERED: NITR-5 PO (22:23)
[2017-11-19] MEDS ORDERED: MACROBID 100MG HOME PACK 1 EA VIAL ONE (22:36)
[2017-11-19 22:43] VITALS: BP 143/75; PULSE 75; O2SAT 96
[2017-11-19] MEDS ORDERED: MACROBID 100MG HOME PACK 1 EA VIAL PO ONE (22:45)
--- NOTE | 2017-11-19 23:15 | EMERGENCY ROOM VISIT NOTE ---
History Report prepared by Tarah: Jarett Lou Under the Supervision of: Dr. Chema Acosta M.D. First contact with patient: 20:38 Chief Complaint: REFERRED BY DOCTOR Stated Complaint: GIVEN THE WRONG MEDS, WAS TOLD TO COME IN History of Present Illness The patient is a 62 year old female who presents to the Emergency Room with complaints of a persistent need for an antibiotic change that was detected today. The patient states that she was here 2 days ago for a UTI and bleeding, and was put on Bactrim. She has not been experiencing any urinary symptoms however. The patient notes that she has still been having some bleeding but it has been getting a bit better. She adds that she still is having the same nonradiating 5 out of 10 abdominal pain that she had the last time she was here. The patient states that she got a call about an hour ago, and was told to come here to because she was given the wrong antibiotic and it needed to be switched. The patient notes that she has been starting to feel lightheaded and dizzy since this morning. The patient adds that she has been in and out of the ED here 5 times since June due to recurrent UTI's. Pt denies LOC, headache, fevers, chills, diaphoresis, visual changes, change in appetite, neck pain, chest pain, breathing difficulties, nausea, vomiting, worsening back pain, melena, hematochezia, urinary symptoms, numbness, weakness, lymphadenopathy, rash, or other complaints. Source of History: patient Onset: Detected today Position: other (global) Symptom Intensity: stronger UTI than thought Quality: other (need for antibiotic change) Timing: other (persistent) Associated Symptoms: + abdominal pain Note: Associated symptoms: Vaginal bleeding but getting better. Dizziness and lightheadedness starting today. Review of Systems See HPI for pertinent positives and negatives. A total of ten systems were reviewed and were otherwise negative. Past Medical & Surgical Medical Problems: (1) Asthma (2) Bilateral lower extremity edema (3) Cerebral palsy (4) Chronic pain (5) Complicated UTI (urinary tract infection) (6) DM type 2 (diabetes mellitus, type 2) (7) Dyslipidemia (8) Fibromyalgia (9) VIDA (generalized anxiety disorder) (10) History of migraine (11) Hypothyroidism (12) Major depressive disorder, recurrent, moderate (13) NG (nonalcoholic steatohepatitis) (14) Obesity, morbid (more than 100 lbs over ideal weight or BMI > 40) (15) Obstructive sleep apnea (16) Osteoarthritis (17) Venous insufficiency Surgical Problems: (1) H/O Achilles tendon repair (2) H/O section (3) H/O wisdom tooth extraction (4) History of D&C Family History FH: CAD (coronary artery disease) MOTHER ([place] in her 50s) Social History Smoking Status: Never Smoker Alcohol Use: none Marital Status: Housing Status: lives with family Occupation Status: disabled Current/Historical Medications Scheduled Albuterol Sulfate (Proventil Hfa), 2 PUFFS INH QID Aspirin (Aspirin Ec), 81 MG PO QAM Atenolol (Tenormin), 25 MG PO HS Atorvastatin (Lipitor), 40 MG PO HS Cephalexin Monohydrate (Keflex), 250 MG PO QAM Cyclobenzaprine Hcl (Flexeril), 10 MG PO HS Escitalopram Oxalate (Lexapro), 15 MG PO DAILY Fluticasone Propionate (Nasal) (Flonase Allergy Relief), 2 SPRAYS MARIO DAILY Gabapentin (Neurontin), 300 MG PO BID AT AM & MIDDAY Gabapentin (Gabapentin), 600 MG PO HS Bzbpcdirekv-Alujnsosuuq-Txt C- (Glucosamine 1500 Complex), 1 CAP PO TID Home O2 Therapy (Oxygen), 2 LITERS NA HS Insulin Glargine (Lantus), 13 UNITS SC HS Levothyroxine Sodium (Levothyroxine Sodium), 88 MCG PO QAM Levothyroxine Sodium (Levothyroxine Sodium), 100 MCG PO QAM Metformin Hcl (Glucophage), 1,000 MG PO BIDM Multiple Vitamins W/ Minerals (Centrum Silver Adult 50+), 1 TAB PO QAM Nitrofurantoin Monohyd Macrocr (Macrobid), 100 MG PO BID Sulfa/Trimethoprim (Bactrim Ds 800MG/160MG), 1 TAB PO BID Scheduled PRN Azelastine Hcl (Astelin Nasal [place]), 2 SPRAYS NA BID PRN for Nasal Congestion Fexofenadine Hcl (Danita), 180 MG PO QAM PRN for Allergies Furosemide (Lasix), 20 MG PO DAILY PRN for Edema Hydrocodone/Acetaminophen (Gray 10/325 Tab), 1 TAB PO BID PRN for Pain Ipratropium-Albuterol (Duoneb), 1 TREATMENT INH QID PRN for SOB/Wheezing Nystatin (Nystatin Cream), 0 EXT BID PRN for rash Allergies Coded Allergies: Penicillins (Verified Allergy, Intermediate, HIVES, 11/17/17) Physical Exam Vital Signs Date Time Temp Pulse Resp B/P (MAP) Pulse Ox O2 Delivery O2 Flow Rate FiO2 11/19/17 22:43 75 18 143/75 96 11/19/17 20:28 37.1 94 18 148/72 95 Room Air Physical Exam GENERAL: Awake, alert, tired-appearing, in no distress, obese HENT: Normocephalic, atraumatic. Oropharynx unremarkable. EYES: Normal conjunctiva. Sclera non-icteric. NECK: Supple. No nuchal rigidity. FROM. No masses. RESPIRATORY: Clear to auscultation. No wheezes. No rales. Normal respiratory effort. CARDIAC: Normal rate. Normal rhythm. Systolic murmur noted. No rubs. Extremities warm and well perfused. Pulses equal. No JVD. GI: Soft, non-distended. No tenderness to palpation. No rebound or guarding. No masses. RECTAL: Deferred. MUSCULOSKELETAL: Atraumatic. Chest examination reveals no tenderness. The back is symmetrical on inspection without obvious abnormality. There is no CVA tenderness to palpation. No joint edema. LOWER EXTREMITIES: 2+ lower extremity edema. Calves are equal size bilaterally and non-tender. Chronic venous discoloration. NEURO: Normal sensorium. No sensory or motor deficits noted. SKIN: No rash or jaundice noted. Medical Decision & Procedures Laboratory Results 11/19/17 21:00 Red Blood Count 3.75, Mean Corpuscular Volume 94.7, Mean Corpuscular Hemoglobin 30.1, Mean Corpuscular Hemoglobin Concent 31.8, Mean Platelet Volume 12.9, Neutrophils (%) (Auto) 56.0, Lymphocytes (%) (Auto) 24.5, Monocytes (%) (Auto) 11.9, Eosinophils (%) (Auto) 7.2, Basophils (%) (Auto) 0.4, Neutrophils # (Auto ) 1.56, Lymphocytes # (Auto) 0.68, Monocytes # (Auto) 0.33, Eosinophils # (Auto ) 0.20, Basophils # (Auto) 0.01 3/11/18 21:00 Test 11/19/17 21:00 White Blood Count 2.78 K/uL (4.8-10.8) Red Blood Count 3.75 M/uL (4.2-5.4) Hemoglobin 11.3 g/dL (12.0-16.0) Hematocrit 35.5 % (37-47) Mean Corpuscular Volume 94.7 fL (80-100) Mean Corpuscular Hemoglobin 30.1 pg (25-34) Mean Corpuscular Hemoglobin Concent 31.8 g/dl (32-36) Platelet Count 108 K/uL (130-400) Mean Platelet Volume 12.9 fL (7.4-10.4) Neutrophils (%) (Auto) 56.0 % Lymphocytes (%) (Auto) 24.5 % Monocytes (%) (Auto) 11.9 % Eosinophils (%) (Auto) 7.2 % Basophils (%) (Auto) 0.4 % Neutrophils # (Auto) 1.56 K/uL (1.4-6.5) Lymphocytes # (Auto) 0.68 K/uL (1.2-3.4) Monocytes # (Auto) 0.33 K/uL (0.11-0.59) Eosinophils # (Auto) 0.20 K/uL (0-0.5) Basophils # (Auto) 0.01 K/uL (0-0.2) RDW Standard Deviation 53.4 fL (36.4-46.3) RDW Coefficient of Variation 15.4 % (11.5-14.5) Immature Granulocyte % (Auto) 0.0 % Immature Granulocyte # (Auto) 0.00 K/uL (0.00-0.02) Giant Platelets 1+ Anion Gap 10.0 mmol/L (3-11) Est Creatinine Clear Calc Drug Dose 74.8 ml/min Estimated GFR () 78.4 Estimated GFR (Non- 67.6 BUN/Creatinine Ratio 16.8 (10-20) Calcium Level 8.9 mg/dl (8.5-10.1) Total Bilirubin 0.3 mg/dl (0.2-1) Direct Bilirubin 0.1 mg/dl (0-0.2) Aspartate Amino Transf (AST/SGOT) 29 U/L (15-37) Alanine Aminotransferase (ALT/SGPT) 30 U/L (12-78) Alkaline Phosphatase 124 U/L (45-117) Total Protein 7.3 gm/dl (6.4-8.2) Albumin 3.4 gm/dl (3.4-5.0) Laboratory results reviewed by me Medications Administered Medications (Trade) Dose Ordered Sig/Betsy Route Start Time Stop Time Status Last Admin Dose Admin Daptomycin 600 mg/ Sodium Chloride 62 ml @ 100 mls/hr NOW STAT IV 11/19/17 20:44 11/19/17 21:21 DC 11/19/17 21:08 100 MLS/HR Acetaminophen (Tylenol Tab) 1,000 mg NOW STAT PO 11/19/17 22:13 11/19/17 22:18 DC 11/19/17 22:37 1,000 MG Nitrofurantoin (Macrobid Homepack 100MG) 1 homepack UD ONCE PO 11/19/17 22:45 11/19/17 22:46 DC 11/19/17 22:37 1 HOMEPACK ED Course 2042: I spoke with the pharmacist about the patient's antibiotic choice. The patient had a urine culture on November 17 which came back VRE and sensitive to only Daptomycin and Nitrofurantoin. 2043: Daptomycin 600 mg/Sodium Chloride 62 ml @ 100 mls/hr IV. 2051: The patient was evaluated in room C2B. A complete history and physical exam was performed. 3: Tylenol Tab 1000 mg PO. 5: Macrobid Cap 100 mg PO. 6: I reevaluated the patient and she is resting comfortably. Discussed results and discharge instructions: she verbalized understanding and agreement. The patient is ready for discharge. Medical Decision Triage Nursing notes reviewed. The patient's presentation and history were concerning for resistant UTI and intermittent abdominal pains. Etiologies such as UTI, cystitis, pyelonephritis, abscess, bacteremia, sepsis, appendicitis, diverticulitis, obstruction, inflammatory bowel disease, renal colic, PUD, biliary pathology, pancreatitis, mesenteric ischemia, aortic pathology, infections, genitourinary, perforated viscus, as well as others were entertained. The patient was evaluated. She was doing well overall. She was afebrile. She had a benign abdominal examination. Blood work is obtained. She has a pancytopenia but this is not much different than prior. She is not neutropenic. She is not significantly anemic. It appears the patient has a UTI that was resistant to her outpatient treatment. The patient was treated with a dose of IV daptomycin. She was given Tylenol because she developed some mild lower abdominal discomfort. She will be placed on Macrobid as this is the only reasonable choice. I did discuss the dosing with pharmacy. She will follow-up closely as an outpatient. She states that she has never been referred to hematology or had a workup regarding her pancytopenia. I encouraged her to see her primary physician this coming week and discuss this. The patient was also referred to gynecology and urology on her last visit. She was encouraged to continue these appointments. If she worsens in any way she will be back. I gave my usual and customary discussion regarding this issue. By the evaluation outlined above other emergent etiologies such as those listed in the differential, as well as others, were deemed relatively unlikely. The patient and her were educated about the findings as listed above. All questions were answered and they were pleased with the treatment. Return instructions were outlined and the patient was discharged in stable condition. Medication Reconcilliation Current Medication List: was personally reviewed by me Blood Pressure Screening Patient's blood pressure: Elevated blood pressure Blood pressure disposition: Referred to PCP Impression Primary Impression: VRE (vancomycin resistant enterococcus) culture positive Additional Impression: Complicated UTI (urinary tract infection) Scribe Attestation The scribe's documentation has been prepared under my direction and personally reviewed by me in its entirety. I confirm that the note above accurately reflects all work, treatment, procedures, and medical decision making performed by me. Departure Information Dispostion Home / Self-Care Prescriptions Nitrofurantoin Monohyd Macrocr (Macrobid) 100 Mg Cap 100 MG PO BID, #14 CAP Prov: Chema Acosta MD 11/19/17 Referrals Nancy Matute M.D. (MEDICAL) (PCP) Patient Instructions [facility] Additional Instructions Stop taking the Bactrim antibiotic prescribed on November 17. The urinary tract infection will not be treated with this medication. Start Macrobid(nitrofurantoin) 100 mg twice daily for 7 days. Tylenol: Take 1000 mg every 6 hours as needed for pain. Do not take more than 3000 mg in a 24 hour period. Continue other current medications. Rest and drink plenty of fluids. Diet as tolerated. Follow-up with Dr. Matute's office tomorrow to schedule an appointment. This should be a recheck from your recent visits and also discuss your blood pressure and low blood counts. Discuss a referral to hematology, a blood doctor. Follow-up with [facility] and urology as instructed on your last visit. The numbers are listed below for [facility] with Dr. Couch and for Dr. Alfaro in urology. Return to the ER for worsening abdominal pain, vomiting, fevers, bloody stools, or as needed. Problem Qualifiers
== END 2017-11-19 22:40 | disposition home or self-care (01) ==
LOC: C.EDB 20:27 → C.EDC 22:40
DX: Z16.21 Resistance to vancomycin (principal); N39.0 Urinary tract infection, site not specified; D61.818 Other pancytopenia; R03.0 Elevated blood-pressure reading, without diagnosis of hypertension; J45.909 Unspecified asthma, uncomplicated; E11.9 Type 2 diabetes mellitus without complications; E03.9 Hypothyroidism, unspecified; E78.5 Hyperlipidemia, unspecified; Z79.82 Long term (current) use of aspirin; Z99.81 Dependence on supplemental oxygen; Z79.4 Long term (current) use of insulin; Z79.84 Long term (current) use of oral hypoglycemic drugs; Z88.1 Allergy status to other antibiotic agents; Z82.49 Family history of ischemic heart disease and other diseases of the circulatory system

== ENCOUNTER 2017-11-20 17:40 | Inpatient (IN) | payer BC, OTHER ==
[~2017-11-20] VITALS: Ht 149.9 cm; Wt 122.5 kg
[~2017-11-20 17:40] MED LIST changes: -ALBU18002 INH; +ALBUAER INH; -BENZ100C7 PO; -BIOT1CAP8 PO; -DIPH25CA5 PO; -DOCU-94 PO; +FLUT0.15 NAE; +INSDGI SC; -INSU100I23 SC; +KFL/250 PO; +NITR-5 PO; -OXYC1TAB3 PO; -POTA10TA30 PO; -PRLSR20 PO; -TRAZ50TA35 PO
[2017-11-20] MEDS ORDERED: SODIUM CHLORIDE 0.9% 1000ML 1,000 ML IV STA (19:07)
--- NOTE | 2017-11-20 19:19 | EMERGENCY ROOM VISIT NOTE ---
History Report prepared by Tarah: Melvina Cortez Under the Supervision of: Dr. Chaim Ge M.D. First contact with patient: 18:49 Chief Complaint: DIZZY Stated Complaint: LIGHT HEADED, WAS HERE YESTERDAY Nursing Triage Summary: Patient presents to triage via wheelchair, states "I keep, for the last three days, getting dizzy in the mornings. I was here last night for lightheadedness and low blood counts. They told me if it happened again today, to come back. I was put on an antibiotic for a UTI but I didn't get to the pharmacy to pick it up." Patient reports dizziness for at least a month. Patient complaining of a headache. Patient talking on the phone while in triage. History of Present Illness The patient is a 62 year old female who presents to the Emergency Room with complaints of persistent dizziness that began 3 days ago. She reports that 3 days ago she was seen in the emergency department for persistent vaginal bleeding, noting she is unsure why it occurred. 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 She reports that she was seen here again one day ago for dizziness. She states that she was diagnosed with a urinary tract infection and was told that if her symptoms continued, she should return to the emergency department. The patient reports that this morning when she woke up she felt dizzy and lightheaded, noting it felt a little worse than yesterday. She notes that she has not picked up the medication she was prescribed one day ago. Today , she saw her GI doctor, who stated that her blood level was low, but they did not discuss her current symptoms. She reports that she had a normal bowel movement today. The patient denies being a smoker. Source of History: patient Onset: 3 days ago Position: other (neurological) Quality: other (dizziness) Timing: other (persistent) Note: Associated symptoms include: lightheaded Review of Systems See HPI for pertinent positives and negatives. A total of ten systems were reviewed and were otherwise negative. Past Medical & Surgical Medical Problems: (1) Acute cystitis (2) Asthma (3) Bilateral lower extremity edema (4) Cerebral palsy (5) Chronic pain (6) Complicated UTI (urinary tract infection) (7) DM type 2 (diabetes mellitus, type 2) (8) Dyslipidemia (9) Fibromyalgia (10) VIDA (generalized anxiety disorder) (11) History of migraine (12) Hypothyroidism (13) Major depressive disorder, recurrent, moderate (14) NG (nonalcoholic steatohepatitis) (15) Obesity, morbid (more than 100 lbs over ideal weight or BMI > 40) (16) Obstructive sleep apnea (17) Osteoarthritis (18) Venous insufficiency Surgical Problems: (1) H/O Achilles tendon repair (2) H/O section (3) H/O wisdom tooth extraction (4) History of D&C Family History FH: CAD (coronary artery disease) MOTHER (CT in her 50s) Social History Smoking Status: Never Smoker Alcohol Use: none Marital Status: Housing Status: lives with family Occupation Status: disabled Current/Historical Medications Scheduled Albuterol Sulfate (Proventil Hfa), 2 PUFFS INH QID Aspirin (Aspirin Ec), 81 MG PO QAM Atenolol (Tenormin), 25 MG PO HS Atorvastatin (Lipitor), 40 MG PO HS Cephalexin Monohydrate (Keflex), 250 MG PO QAM Cyclobenzaprine Hcl (Flexeril), 10 MG PO HS Escitalopram Oxalate (Lexapro), 15 MG PO DAILY Fluticasone Propionate (Nasal) (Flonase Allergy Relief), 2 SPRAYS MARIO DAILY Gabapentin (Neurontin), 300 MG PO BID AT AM & MIDDAY Gabapentin (Gabapentin), 600 MG PO HS Pqguxnrqtbl-Yhrnsybhhay-Emq C- (Glucosamine 1500 Complex), 1 CAP PO TID Home O2 Therapy (Oxygen), 2 LITERS NA HS Insulin Glargine (Lantus), 13 UNITS SC HS Levothyroxine Sodium (Levothyroxine Sodium), 88 MCG PO QAM Levothyroxine Sodium (Levothyroxine Sodium), 100 MCG PO QAM Metformin Hcl (Glucophage), 1,000 MG PO BIDM Multiple Vitamins W/ Minerals (Centrum Silver Adult 50+), 1 TAB PO QAM Nitrofurantoin Monohyd Macrocr (Macrobid), 100 MG PO BID Sulfa/Trimethoprim (Bactrim Ds 800MG/160MG), 1 TAB PO BID Scheduled PRN Azelastine Hcl (Astelin Nasal [place]), 2 SPRAYS NA BID PRN for Nasal Congestion Fexofenadine Hcl (Dnaita), 180 MG PO QAM PRN for Allergies Furosemide (Lasix), 20 MG PO DAILY PRN for Edema Hydrocodone/Acetaminophen ([place] 10/325 Tab), 1 TAB PO BID PRN for Pain Ipratropium-Albuterol (Duoneb), 1 TREATMENT INH QID PRN for SOB/Wheezing Nystatin (Nystatin Cream), 0 EXT BID PRN for rash Allergies Coded Allergies: Penicillins (Verified Allergy, Intermediate, HIVES, 11/20/17) Physical Exam Vital Signs Date Time Temp Pulse Resp B/P (MAP) Pulse Ox O2 Delivery O2 Flow Rate FiO2 11/21/17 00:02 119 117/79 95 Room Air 11/20/17 23:01 116 24 149/93 93 Room Air 11/20/17 22:37 112 22 159/86 92 Room Air 11/20/17 21:43 116 22 125/78 94 Room Air 11/20/17 20:26 112 25 107/58 93 Room Air 11/20/17 19:18 107 11/20/17 17:59 37.8 107 22 147/84 96 Room Air Physical Exam GENERAL: Awake, alert, anxious-appearing, in no distress HENT: Dry mucous membranes. Normocephalic, atraumatic. Oropharynx unremarkable. EYES: Normal conjunctiva. Sclera non-icteric. NECK: Supple. No nuchal rigidity. FROM. No JVD. RESPIRATORY: Clear to auscultation. CARDIAC: Regular rate, normal rhythm. Extremities warm and well perfused. Pulses equal. ABDOMEN: Obese, soft, non-distended. No tenderness to palpation. No rebound or guarding. No masses. RECTAL: Deferred. MUSCULOSKELETAL: Chest examination reveals no tenderness. The back is symmetrical on inspection without obvious abnormality. There is no CVA tenderness to palpation. No joint edema. LOWER EXTREMITIES: 1+ lower extremity edema. Calves are equal size bilaterally and non-tender. No discoloration. NEURO: Normal sensorium. No sensory or motor deficits noted. normal cerebellar function with [id number], alternating palms, [id number]-[id number] SKIN: No rash or jaundice noted. Medical Decision & Procedures ER Provider Diagnostic Interpretation: Radiology results as stated below per my review and radiologist interpretation: CHEST ONE VIEW PORTABLE HISTORY: fevers COMPARISON: Chest 11/01/2017. FINDINGS: Low lung volumes. No pneumothorax. The heart remains mildly enlarged. Mild interstitial prominence persists. No new focal lung consolidations. IMPRESSION: No change compared to the prior study. Cardiomegaly and mild interstitial thickening persists. This may be chronic. No new focal lung consolidations. Electronically signed by: Cecil Matthew M.D. 11/20/2017 7:30 PM Dictated Date/Time: 11/20/2017 7:[address] CT DOSE: 751.47 mGy.cm HISTORY: vertigo TECHNIQUE: Multiaxial CT images of the head were performed without the use of intravenous contrast. Automated exposure control was utilized for this study. A dose lowering technique was utilized adhering to the principles of ALARA. Comparison: Head CT 12/13/2015. Findings: The paranasal sinuses and mastoid air cells are clear. The calvarium and skull base are intact. The ventricles and sulci are within normal limits. There is no mass, hematoma, midline shift, or acute infarct. No change in the patchy periventricular white matter hypodensity. Motion artifact. Impression: Motion artifact. No significant change compared to the prior study. No acute intracranial abnormality. Electronically signed by: Cecil Matthew M.D. 11/20/2017 8:54 PM Dictated Date/Time: 11/20/2017 8:51 PM Laboratory Results 11/20/17 20:15 Red Blood Count 4.27, Mean Corpuscular Volume 95.6, Mean Corpuscular Hemoglobin 30.0, Mean Corpuscular Hemoglobin Concent 31.4, Mean Platelet Volume 12.9, Neutrophils (%) (Auto) 86.0, Lymphocytes (%) (Auto) 4.5, Monocytes (%) (Auto) 4.5, Eosinophils (%) (Auto) 4.4, Basophils (%) (Auto) 0.2, Neutrophils # (Auto) 4.54, Lymphocytes # (Auto) 0.24, Monocytes # (Auto) 0.24, Eosinophils # (Auto) 0.23, Basophils # (Auto) 0.01 11/20/17 20:59 Test 11/20/17 19:37 11/20/17 20:15 11/20/17 20:59 Urine Color DK YELLOW Urine Appearance CLEAR (CLEAR) Urine pH 5.0 (4.5-7.5) Urine Specific [place] 1.025 (1.000-1.030) Urine Protein NEG (NEG) Urine Glucose (UA) NEG (NEG) Urine Ketones TRACE (NEG) Urine Occult Blood 2+ (NEG) Urine Nitrite NEG (NEG) Urine Bilirubin NEG (NEG) Urine Urobilinogen NEG (NEG) Urine Leukocyte Esterase MODERATE (NEG) Urine WBC (Auto) >30 /hpf (0-5) Urine RBC (Auto) 10-30 /hpf (0-4) Urine Hyaline Casts (Auto) 1-5 /lpf (0-5) Urine Epithelial Cells (Auto) >30 /lpf (0-5) Urine Bacteria (Auto) NEG (NEG) Urine Yeast (Auto) PRESENT (NONE PRSENT) Influenza Type A Antigen Neg for Influ A (NEG) Influenza Type B Antigen Neg for Influ B (NEG) White Blood Count 5.28 K/uL (4.8-10.8) Red Blood Count 4.27 M/uL (4.2-5.4) Hemoglobin 12.8 g/dL (12.0-16.0) Hematocrit 40.8 % (37-47) Mean Corpuscular Volume 95.6 fL (80-100) Mean Corpuscular Hemoglobin 30.0 pg (25-34) Mean Corpuscular Hemoglobin Concent 31.4 g/dl (32-36) Platelet Count 109 K/uL (130-400) Mean Platelet Volume 12.9 fL (7.4-10.4) Neutrophils (%) (Auto) 86.0 % Lymphocytes (%) (Auto) 4.5 % Monocytes (%) (Auto) 4.5 % Eosinophils (%) (Auto) 4.4 % Basophils (%) (Auto) 0.2 % Neutrophils # (Auto) 4.54 K/uL (1.4-6.5) Lymphocytes # (Auto) 0.24 K/uL (1.2-3.4) Monocytes # (Auto) 0.24 K/uL (0.11-0.59) Eosinophils # (Auto) 0.23 K/uL (0-0.5) Basophils # (Auto) 0.01 K/uL (0-0.2) RDW Standard Deviation 53.9 fL (36.4-46.3) RDW Coefficient of Variation 15.5 % (11.5-14.5) Immature Granulocyte % (Auto) 0.4 % Immature Granulocyte # (Auto) 0.02 K/uL (0.00-0.02) Platelet Estimate DECREASED Prothrombin Time 11.1 SECONDS (9.0-12.0) Prothromb Time International Ratio 1.1 (0.9-1.1) Activated Partial Thromboplast Time 27.6 SECONDS (21.0-31.0) Partial Thromboplastin Ratio 1.1 Anion Gap 10.0 mmol/L (3-11) Est Creatinine Clear Calc Drug Dose 78.7 ml/min Estimated GFR () 83.9 Estimated GFR (Non- 72.4 BUN/Creatinine Ratio 14.2 (10-20) Calcium Level 8.9 mg/dl (8.5-10.1) Total Bilirubin 0.5 mg/dl (0.2-1) Direct Bilirubin 0.2 mg/dl (0-0.2) Aspartate Amino Transf (AST/SGOT) 34 U/L (15-37) Alanine Aminotransferase (ALT/SGPT) 29 U/L (12-78) Alkaline Phosphatase 124 U/L (45-117) Troponin I < 0.015 ng/ml (0-0.045) Pro-B-Type Natriuretic Peptide 45 pg/ml (0-900) Total Protein 7.3 gm/dl (6.4-8.2) Albumin 3.5 gm/dl (3.4-5.0) Lipase 87 U/L (73-393) Laboratory results reviewed by me Medications Administered Medications (Trade) Dose Ordered Sig/Betsy Route Start Time Stop Time Status Last Admin Dose Admin Sodium Chloride 1,000 ml @ 999 mls/hr Q1H1M STAT IV 11/20/17 19:07 11/20/17 20:07 DC 11/20/17 19:07 999 MLS/HR Nitrofurantoin Macrocrystals (Macrobid Cap) 100 mg ONE STAT PO 11/20/17 22:12 11/20/17 22:14 DC 11/20/17 22:12 100 MG Atenolol (Tenormin Tab) 25 mg NOW ONCE PO 11/21/17 00:00 11/21/17 00:01 DC 11/21/17 00:39 25 MG Daptomycin 715 mg/ Sodium Chloride 64.3 ml @ 100 mls/hr NOW STAT IV 11/21/17 00:12 11/21/17 00:50 DC 11/21/17 00:38 100 MLS/HR ECG Per My Interpretation Indication: syncope Rate (beats per minute): 107 Rhythm: sinus tachycardia Findings: no acute ischemic change, other (normal axis) ED Course 1853: The patient was evaluated in room C03. A complete history and physical exam was performed. 2157: I reevaluated the patient, who was resting. I discussed some test findings and she verbalized understanding. 2353: I reevaluated the patient and updated her on test findings. She verbalized complete understanding. 0007: Discussed patient's case with Dr. Michelle, internal medicine. She agrees on giving the patient a dose of Dapto. She will do an I&D. 0015: I reevaluated the patient and updated her on test findings. She verbalized agreement of the treatment plan. Medical Decision I reviewed the patient's past medical history, medications, and the nursing notes as described above. Differential diagnosis: Etiologies such as metabolic, infection, hypo/hyperglycemia, electrolyte abnormalities, cardiac sources, intracerebral event, toxicologic, neurologic, as well as others were entertained. The patient is a 60-year-old woman with a past medical history of insulin- dependent diabetes, chronic UTIs, recent bladder tumor resection, NG who presents to the emergency department with persistent dizziness and generalized weakness in the setting of being treated for a urinary tract infection per hpi. The patient was seen yesterday and her antibiotics were changed per culture sensitivities and received an IV dose of daptomycin and discharged on Macrobid secondary to her November 17 culture growing VRE sensitive only to daptomycin and Macrobid. 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 She was also referred to hematology to follow up for her chronic pancytopenia that had not been formally evaluated. Labs today essentially unchanged from yesterday. WBC improved to 5.2. H&H stable. Platelets unchanged. Patient was given IV fluid hydration with some mild improvement however heart rate still with mild tachycardia in the 100s- 110s. UA dirty but again in the setting of prior UA growing VRE. Patient reassessed after IV fluid hydration and still feeling weak and lightheaded. Thus, given this is the patient's third ED visit for similar symptoms in the setting of incompletely treated VRE UTI will admit the patient for further management including IV daptomycin per sensitivities. Case was discussed with Dr. Michelle, who will admit the patient for further management. Medication Reconcilliation Current Medication List: was personally reviewed by me Blood Pressure Screening Patient's blood pressure: Normal blood pressure Blood pressure disposition: Did not require urgent referral Consults Time Called: 6 Consulting Physician: Dr. Michelle, Internal medicine Returned Call: [phone] Discussed patient's case with Dr. Michelle, internal medicine. She agrees on giving the patient a dose of Dapto. She will do an I&D. Impression Primary Impression: UTI (urinary tract infection) Additional Impression: Generalized weakness Scribe Attestation The scribe's documentation has been prepared under my direction and personally reviewed by me in its entirety. I confirm that the note above accurately reflects all work, treatment, procedures, and medical decision making performed by me. Departure Information Dispostion Being Evaluated By Hospitalist Referrals Nancy Matute M.D. (MEDICAL) (PCP) Forms HOME CARE DOCUMENTATION FORM, IMPORTANT VISIT INFORMATION Patient Instructions My [facility] Problem Qualifiers
--- NOTE | 2017-11-20 19:31 | DIAGNOSTIC IMAGING REPORT ---
CHEST ONE VIEW PORTABLE HISTORY: fevers COMPARISON: Chest 11/01/2017. FINDINGS: Low lung volumes. No pneumothorax. The heart remains mildly enlarged. Mild interstitial prominence persists. No new focal lung consolidations. IMPRESSION: No change compared to the prior study. Cardiomegaly and mild interstitial thickening persists. This may be chronic. No new focal lung consolidations. Electronically signed by: Cecil Matthew M.D. 11/20/2017 7:30 PM Dictated Date/Time: 11/20/2017 7:29 PM
[2017-11-20 20:33] LABS: INFLUENZA B ANTIGEN Neg for Influ B (NEG)
--- NOTE | 2017-11-20 20:55 | DIAGNOSTIC IMAGING REPORT ---
HEAD CT NONCONTRAST CT DOSE: 751.47 mGy.cm HISTORY: vertigo TECHNIQUE: Multiaxial CT images of the head were performed without the use of intravenous contrast. Automated exposure control was utilized for this study. A dose lowering technique was utilized adhering to the principles of ALARA. Comparison: Head CT 12/13/2015. Findings: The paranasal sinuses and mastoid air cells are clear. The calvarium and skull base are intact. The ventricles and sulci are within normal limits. There is no mass, hematoma, midline shift, or acute infarct. No change in the patchy periventricular white matter hypodensity. Motion artifact. Impression: Motion artifact. No significant change compared to the prior study. No acute intracranial abnormality. Electronically signed by: Cecil Matthew M.D. 11/20/2017 8:54 PM Dictated Date/Time: 11/20/2017 8:51 PM
[2017-11-20 21:14] LABS: BASO % 0.2 %; BASO ABS # 0.01 K/uL (0-0.2); EOS % 4.4 %; EOS ABS # 0.23 K/uL (0-0.5); HEMATOCRIT 40.8 % (37-47); HEMOGLOBIN 12.8 g/dL (12.0-16.0); IG# 0.02 K/uL (0.00-0.02); LYMPH % 4.5 %; LYMPH ABS # 0.24 K/uL (1.2-3.4); MEAN CELL VOLUME 95.6 fL (80-100); MEAN CORPUSCULAR HGB CONC 31.4 g/dl (32-36); MEAN PLATELET VOLUME 12.9 fL (7.4-10.4); MONO % 4.5 %; MONO ABS # 0.24 K/uL (0.11-0.59); NEUT ABS # 4.54 K/uL (1.4-6.5); PLATELET COUNT 109 K/uL (130-400); RED CELL DISTRIBUTION WIDTH CV 15.5 % (11.5-14.5); RED CELL DISTRIBUTION WIDTH SD 53.9 fL (36.4-46.3); WHITE BLOOD COUNT 5.28 K/uL (4.8-10.8)
[2017-11-20 21:32] LABS: INR 1.1 (0.9-1.1); PTT PATIENT 27.6 SECONDS (21.0-31.0)
[2017-11-20 21:34] LABS: ALBUMIN 3.5 gm/dl (3.4-5.0); ALKALINE PHOSPHATASE 124 U/L (45-117); ALT/SGPT 29 U/L (12-78); AST/SGOT 34 U/L (15-37); BLOOD UREA NITROGEN 12 mg/dl (7-18); CALCIUM 8.9 mg/dl (8.5-10.1); CARBON DIOXIDE 23 mmol/L (21-32); CREATININE 0.86 mg/dl (0.60-1.20); GLUCOSE 183 mg/dl (70-99); LIPASE 87 U/L (73-393); POTASSIUM 4.3 mmol/L (3.5-5.1); SODIUM 139 mmol/L (136-145); TOTAL PROTEIN 7.3 gm/dl (6.4-8.2)
[2017-11-20] MEDS ORDERED: NITROFURANTOIN MONOHYDRATE 100 MG CAP PO STA (22:12)
[2017-11-21] VITALS (12 sets, daily range): BP systolic 101–162; BP diastolic 61–79; PULSE 88–110; TEMP 37.1–39.4; O2SAT 92–96; Ht 149.9 cm; Wt 122.5 kg
[2017-11-21] MEDS ORDERED: SODIUM CHLORIDE 0.9% IV STA (00:12)
[2017-11-21] MEDS ORDERED: DAPTOMYCIN IV STA (00:12)
[2017-11-21] MEDS ORDERED: ONDANSETRON INJ 2 MG/ML 2 ML VIAL IV PRN (02:00)
[2017-11-21] MEDS ORDERED: POLYETHYLENE (MIRALAX) 17 GM PACK PO PRN (02:00)
[2017-11-21] MEDS ORDERED: DAPTOMYCIN CONSULT ACTIVE PRN (02:41)
[2017-11-21] MEDS: SODIUM CHLORIDE 0.9% 1000ML 1,000 ML IV SCH ×2 (04:00→12:25)
[2017-11-21] MEDS ORDERED: DEXTROSE 50% 50 ML SYR IV PRN (04:15)
[2017-11-21] MEDS ORDERED: HYDROCODONE/ACETAMI 10/325 TAB PO PRN (04:15)
[2017-11-21] MEDS ORDERED: GLUCOSE 10 TABS/TUBE PO PRN (04:15)
[2017-11-21] MEDS ORDERED: GLUCAGON FOR INJ 1 MG VIAL SQ PRN (04:15)
[2017-11-21] MEDS ORDERED: GLUCOSE 40% GEL 15 GM TUBE PO PRN (04:15)
[2017-11-21] MEDS ORDERED: CYCLOBENZAPRINE HCL 10 MG TAB PO PRN (04:15)
--- NOTE | 2017-11-21 04:36 | History and Physical ---
History & Physical Date & Time of Service: Nov 21, 2017 at 04:12 Chief Complaint: Acute Cystitis Primary Care Physician: Nancy Matute M.D. (MEDICAL) History of Present Illness 62-year-old female presents with persistent. She initially was seen in the ER on 11/17 for persistent hematuria. She had about a biopsy of her bladder with Dr. Escobar on 10/30 which revealed no malignancy. She noted a couple of days of bleeding after the biopsy which spontaneously resolved. She denied any issues including burning with urination however woke up with a diaper full of blood prior to arrival. At that point she said she felt a bit dizzy. He urinalysis and urine culture revealed presence of VRE infection. She was initially sent home on Bactrim DS. She was later called when the culture returned and asked to return to the ER. She returned on 11/09 and reported again that she felt lightheaded and dizzy since that morning. During this visit nitrofurantoin was started and 1 dose of Daptomycin was given she went home and returned again tonight with her persistent lightheadedness, denying any further bleeding. Review of systems reveals no dysuria flank, flank pain, fevers, chills. The patient reports a chronic cough which she feels has gotten worse in the last 2 weeks. Her is also coughing. She also reports body aches. She denies any sick contacts or travel history. She states that her Cline was taken out on 11/15 and she had had a catheter in since August. She reports spontaneously voiding without issue. Past Medical/Surgical History Medical Problems: (1) Asthma Status: Chronic (2) Bilateral lower extremity edema Status: Chronic (3) Cerebral palsy Status: Chronic (4) Chronic pain Status: Chronic (5) DM type 2 (diabetes mellitus, type 2) Status: Chronic (6) Dyslipidemia Status: Chronic (7) Fibromyalgia Status: Chronic (8) VIDA (generalized anxiety disorder) Status: Chronic (9) History of migraine Status: Chronic (10) Hypothyroidism Status: Chronic (11) Major depressive disorder, recurrent, moderate Status: Chronic (12) NG (nonalcoholic steatohepatitis) Status: Chronic (13) Obesity, morbid (more than 100 lbs over ideal weight or BMI > 40) Status: Chronic (14) Obstructive sleep apnea Status: Chronic (15) Osteoarthritis Status: Chronic (16) Venous insufficiency Status: Chronic Surgical Problems: (1) H/O Achilles tendon repair Status: Chronic (2) H/O section Status: Chronic (3) H/O wisdom tooth extraction Status: Chronic (4) History of D&C Status: Chronic Family History FH: CAD (coronary artery disease) MOTHER ([place] in her 50s) Social History Smoking Status: Never Smoker Smokeless Tobacco Use: No Alcohol Use: none Drug Use: none Marital Status: Housing status: lives with significant other Occupational Status: disabled Immunizations History of Influenza Vaccine: Yes Influenza Vaccine Date: Jul 10, 2017 History of Tetanus Vaccine?: Yes Tetanus Immunization Date: May 01, 2017 History of Pneumococcal: Yes Pneumococcal Date: Jun 01, 2010 Allergies Coded Allergies: Penicillins (Verified Allergy, Intermediate, HIVES, 11/20/17) Home Medications Scheduled Albuterol Sulfate (Proventil Hfa), 2 PUFFS INH QID Aspirin (Aspirin Ec), 81 MG PO QAM Atenolol (Tenormin), 25 MG PO HS Atorvastatin (Lipitor), 40 MG PO HS Cyclobenzaprine Hcl (Flexeril), 10 MG PO HS Escitalopram Oxalate (Lexapro), 15 MG PO DAILY Fluticasone Propionate (Nasal) (Flonase Allergy Relief), 2 SPRAYS MARIO DAILY Gabapentin (Neurontin), 300 MG PO BID AT AM & MIDDAY Gabapentin (Gabapentin), 600 MG PO HS Xugzhwcdubz-Whixdxbmzfq-Jzt C- (Glucosamine 1500 Complex), 1 CAP PO TID Home O2 Therapy (Oxygen), 2 LITERS NA HS Insulin Glargine (Lantus), 13 UNITS SC HS Levothyroxine Sodium (Levothyroxine Sodium), 88 MCG PO QAM Levothyroxine Sodium (Levothyroxine Sodium), 100 MCG PO QAM Metformin Hcl (Glucophage), 1,000 MG PO BIDM Multiple Vitamins W/ Minerals (Centrum Silver Adult 50+), 1 TAB PO QAM Nitrofurantoin Monohyd Macrocr (Macrobid), 100 MG PO BID Scheduled PRN Azelastine Hcl (Astelin Nasal [place]), 2 SPRAYS NA BID PRN for Nasal Congestion Fexofenadine Hcl (Danita), 180 MG PO QAM PRN for Allergies Furosemide (Lasix), 20 MG PO DAILY PRN for Edema Hydrocodone/Acetaminophen ([place] 10/325 Tab), 1 TAB PO BID PRN for Pain Ipratropium-Albuterol (Duoneb), 1 TREATMENT INH QID PRN for SOB/Wheezing Nystatin (Nystatin Cream), 0 EXT BID PRN for rash Review of Systems At least 10 systems were reviewed and negative except as indicated in HPI. Physical Exam Vital Signs Date Time Temp Pulse Resp B/P (MAP) Pulse Ox O2 Delivery O2 Flow Rate FiO2 11/21/17 04:04 37.6 11/21/17 02:28 109 20 97/61 93 11/21/17 01:48 109 20 97/61 93 Room Air 11/21/17 00:02 119 117/79 95 Room Air 11/20/17 23:01 116 24 149/93 93 Room Air 11/20/17 22:37 112 22 159/86 92 Room Air 11/20/17 21:43 116 22 125/78 94 Room Air 11/20/17 20:26 112 25 107/58 93 Room Air 11/20/17 19:18 107 11/20/17 17:59 37.8 107 22 147/84 96 Room Air General Appearance: no apparent distress, + obese Head: normocephalic, atraumatic Eyes: normal inspection, sclerae normal ENT: hearing grossly normal, pharynx normal Neck: supple, trachea midline, + pertinent finding (Obese neck) Respiratory/Chest: lungs clear, normal breath sounds, no respiratory distress, no accessory muscle use Cardiovascular: regular rate, rhythm, no edema, no gallop, no JVD, + systolic murmur Abdomen/GI: normal bowel sounds, non tender, soft, + pertinent finding (obese abdomen) Extremities/Musculoskelatal: no calf tenderness, + pertinent finding ( Decreased range of motion, obesity, no edema) Neurologic/Psych: nitrocellulose maker II-XII nml as tested, alert, normal mood/affect, oriented x 3, + pertinent finding (General he cannot sit up without significant assistance, no focal deficits) Skin: normal color, warm/dry Diagnostics Laboratory Results 11/20/17 20:15 Red Blood Count 4.27, Mean Corpuscular Volume 95.6, Mean Corpuscular Hemoglobin 30.0, Mean Corpuscular Hemoglobin Concent 31.4, Mean Platelet Volume 12.9, Neutrophils (%) (Auto) 86.0, Lymphocytes (%) (Auto) 4.5, Monocytes (%) (Auto) 4.5, Eosinophils (%) (Auto) 4.4, Basophils (%) (Auto) 0.2, Neutrophils # (Auto) 4.54, Lymphocytes # (Auto) 0.24, Monocytes # (Auto) 0.24, Eosinophils # (Auto) 0.23, Basophils # (Auto) 0.01 11/20/17 20:59 Test 11/20/17 19:37 11/20/17 20:15 11/20/17 20:59 Urine Color DK YELLOW Urine Appearance CLEAR (CLEAR) Urine pH 5.0 (4.5-7.5) Urine Specific [place] 1.025 (1.000-1.030) Urine Protein NEG (NEG) Urine Glucose (UA) NEG (NEG) Urine Ketones TRACE (NEG) Urine Occult Blood 2+ (NEG) Urine Nitrite NEG (NEG) Urine Bilirubin NEG (NEG) Urine Urobilinogen NEG (NEG) Urine Leukocyte Esterase MODERATE (NEG) Urine WBC (Auto) >30 /hpf (0-5) Urine RBC (Auto) 10-30 /hpf (0-4) Urine Hyaline Casts (Auto) 1-5 /lpf (0-5) Urine Epithelial Cells (Auto) >30 /lpf (0-5) Urine Bacteria (Auto) NEG (NEG) Urine Yeast (Auto) PRESENT (NONE PRSENT) Influenza Type A Antigen Neg for Influ A (NEG) Influenza Type B Antigen Neg for Influ B (NEG) White Blood Count 5.28 K/uL (4.8-10.8) Red Blood Count 4.27 M/uL (4.2-5.4) Hemoglobin 12.8 g/dL (12.0-16.0) Hematocrit 40.8 % (37-47) Mean Corpuscular Volume 95.6 fL (80-100) Mean Corpuscular Hemoglobin 30.0 pg (25-34) Mean Corpuscular Hemoglobin Concent 31.4 g/dl (32-36) Platelet Count 109 K/uL (130-400) Mean Platelet Volume 12.9 fL (7.4-10.4) Neutrophils (%) (Auto) 86.0 % Lymphocytes (%) (Auto) 4.5 % Monocytes (%) (Auto) 4.5 % Eosinophils (%) (Auto) 4.4 % Basophils (%) (Auto) 0.2 % Neutrophils # (Auto) 4.54 K/uL (1.4-6.5) Lymphocytes # (Auto) 0.24 K/uL (1.2-3.4) Monocytes # (Auto) 0.24 K/uL (0.11-0.59) Eosinophils # (Auto) 0.23 K/uL (0-0.5) Basophils # (Auto) 0.01 K/uL (0-0.2) RDW Standard Deviation 53.9 fL (36.4-46.3) RDW Coefficient of Variation 15.5 % (11.5-14.5) Immature Granulocyte % (Auto) 0.4 % Immature Granulocyte # (Auto) 0.02 K/uL (0.00-0.02) Platelet Estimate DECREASED Prothrombin Time 11.1 SECONDS (9.0-12.0) Prothromb Time International Ratio 1.1 (0.9-1.1) Activated Partial Thromboplast Time 27.6 SECONDS (21.0-31.0) Partial Thromboplastin Ratio 1.1 Anion Gap 10.0 mmol/L (3-11) Est Creatinine Clear Calc Drug Dose 78.7 ml/min Estimated GFR () 83.9 Estimated GFR (Non- 72.4 BUN/Creatinine Ratio 14.2 (10-20) Calcium Level 8.9 mg/dl (8.5-10.1) Total Bilirubin 0.5 mg/dl (0.2-1) Direct Bilirubin 0.2 mg/dl (0-0.2) Aspartate Amino Transf (AST/SGOT) 34 U/L (15-37) Alanine Aminotransferase (ALT/SGPT) 29 U/L (12-78) Alkaline Phosphatase 124 U/L (45-117) Troponin I < 0.015 ng/ml (0-0.045) Pro-B-Type Natriuretic Peptide 45 pg/ml (0-900) Total Protein 7.3 gm/dl (6.4-8.2) Albumin 3.5 gm/dl (3.4-5.0) Lipase 87 U/L (73-393) Date/Time Source Procedure Growth Status 11/21/17 01:19 Blood Blood Culture Pending Received 11/20/17 19:37 Urine , Clean Catch Urine Culture Pending Received Results Past 24 Hours Test 11/20/17 19:37 11/20/17 20:15 11/20/17 20:59 Range/Units Urine Color DK YELLOW Urine Appearance CLEAR CLEAR Urine pH 5.0 4.5-7.5 Urine Specific [place] 1.025 1.000-1.030 Urine Protein NEG NEG Urine Glucose (UA) NEG NEG Urine Ketones TRACE NEG Urine Occult Blood 2+ NEG Urine Nitrite NEG NEG Urine Bilirubin NEG NEG Urine Urobilinogen NEG NEG Urine Leukocyte Esterase MODERATE NEG Urine WBC (Auto) >30 0-5 /hpf Urine RBC (Auto) 10-30 0-4 /hpf Urine Hyaline Casts (Auto) 1-5 0-5 /lpf Urine Epithelial Cells (Auto) >30 0-5 /lpf Urine Bacteria (Auto) NEG NEG Urine Yeast (Auto) PRESENT NONE PRSENT Influenza Type A Antigen Neg for Influ A NEG Influenza Type B Antigen Neg for Influ B NEG White Blood Count 5.28 4.8-10.8 K/uL Red Blood Count 4.27 4.2-5.4 M/uL Hemoglobin 12.8 12.0-16.0 g/dL Hematocrit 40.8 37-47 % Mean Corpuscular Volume 95.6 80-100 fL Mean Corpuscular Hemoglobin 30.0 25-34 pg Mean Corpuscular Hemoglobin Concent 31.4 32-36 g/dl Platelet Count 109 130-400 K/uL Mean Platelet Volume 12.9 7.4-10.4 fL Neutrophils (%) (Auto) 86.0 % Lymphocytes (%) (Auto) 4.5 % Monocytes (%) (Auto) 4.5 % Eosinophils (%) (Auto) 4.4 % Basophils (%) (Auto) 0.2 % Neutrophils # (Auto) 4.54 1.4-6.5 K/uL Lymphocytes # (Auto) 0.24 1.2-3.4 K/uL Monocytes # (Auto) 0.24 0.11-0.59 K/uL Eosinophils # (Auto) 0.23 0-0.5 K/uL Basophils # (Auto) 0.01 0-0.2 K/uL RDW Standard Deviation 53.9 36.4-46.3 fL RDW Coefficient of Variation 15.5 11.5-14.5 % Immature Granulocyte % (Auto) 0.4 % Immature Granulocyte # (Auto) 0.02 0.00-0.02 K/uL Platelet Estimate DECREASED Prothrombin Time 11.1 9.0-12.0 SECONDS Prothromb Time International Ratio 1.1 0.9-1.1 Activated Partial Thromboplast Time 27.6 21.0-31.0 SECONDS Partial Thromboplastin Ratio 1.1 Sodium Level 139 136-145 mmol/L Potassium Level 4.3 3.5-5.1 mmol/L Chloride Level 107 98-107 mmol/L Carbon Dioxide Level 23 21-32 mmol/L Anion Gap 10.0 3-11 mmol/L Blood Urea Nitrogen 12 7-18 mg/dl Creatinine 0.86 0.60-1.20 mg/dl Est Creatinine Clear Calc Drug Dose 78.7 ml/min Estimated GFR () 83.9 Estimated GFR (Non- 72.4 BUN/Creatinine Ratio 14.2 10-20 Random Glucose 183 70-99 mg/dl Calcium Level 8.9 8.5-10.1 mg/dl Total Bilirubin 0.5 0.2-1 mg/dl Direct Bilirubin 0.2 0-0.2 mg/dl Aspartate Amino Transf (AST/SGOT) 34 15-37 U/L Alanine Aminotransferase (ALT/SGPT) 29 12-78 U/L Alkaline Phosphatase 124 45-117 U/L Troponin I < 0.015 0-0.045 ng/ml Pro-B-Type Natriuretic Peptide 45 0-900 pg/ml Total Protein 7.3 6.4-8.2 gm/dl Albumin 3.5 3.4-5.0 gm/dl Lipase 87 73-393 U/L Microbiology Results 11/21/17 Blood Culture, Received Pending 11/21/17 Blood Culture, Received Pending 11/20/17 Urine Culture, Received Pending Diagnostic Radiology CHEST ONE VIEW PORTABLE HISTORY: fevers COMPARISON: Chest 11/01/2017. FINDINGS: Low lung volumes. No pneumothorax. The heart remains mildly enlarged. Mild interstitial prominence persists. No new focal lung consolidations. IMPRESSION: No change compared to the prior study. Cardiomegaly and mild interstitial thickening persists. This may be chronic. No new focal lung consolidations. HEAD CT NONCONTRAST CT DOSE: 751.47 mGy.cm HISTORY: vertigo TECHNIQUE: Multiaxial CT images of the head were performed without the use of intravenous contrast. Automated exposure control was utilized for this study. A dose lowering technique was utilized adhering to the principles of ALARA. Comparison: Head CT 12/13/2015. Findings: The paranasal sinuses and mastoid air cells are clear. The calvarium and skull base are intact. The ventricles and sulci are within normal limits. There is no mass, hematoma, midline shift, or acute infarct. No change in the patchy periventricular white matter hypodensity. Motion artifact. Impression: Motion artifact. No significant change compared to the prior study. No acute intracranial abnormality. EKG ST107 Impression Assessment and Plan 62-year-old female with cerebral palsy ambulatory dysfunction at baseline presents with worsening lightheadedness, recent hematuria, and VRE UTI. 1. Lightheadedness-likely multifactorial with etiologies including but not limited to recent UTI diagnosis, effects from medications including atenolol, gabapentin, and [place]. H&H is normal. Orthostatics were unobtainable secondary to the patient's inability to sit up in bed. PT OT were consulted. Continue to treat underlying infection and monitor for clinical response. Blood cultures and urine cultures are pending in setting of mild fever. 2. VRE UTI-continue daptomycin, ID consult. Normal white count, patient does not appear septic. Continue IV fluids with mild fever. 3. Systolic ejection murmur-history of MRSA bacteremia in July 2017. In setting of fever and lightheadedness will repeat echo at this time. Last echocardiogram was unable to assess cardiac valves. 4. Morbid obesity 5. Type 2 diabetes-insulin sliding scale with carb coverage and Lantus as inpatient. DVT prophylaxis-Lovenox Full code Disposition-telemetry [facility] VTE Prophylaxis Will order VTE Prophylaxis: Yes
[2017-11-21 05:24] LABS: INFLUENZA A PCR Neg for Influ A (NEG); INFLUENZA B PCR Neg for Influ B (NEG)
[2017-11-21] MEDS: LEVOTHYROXINE 100 MCG TAB PO SCH (05:49)
[2017-11-21] MEDS ORDERED: LEVOTHYROXINE 88 MCG TAB PO SCH (06:30)
[2017-11-21 07:08] LABS: HEMOGLOBIN A1C 6.9 % (4.5-5.6)
[2017-11-21] MEDS: ENOXAPARIN 40 MG/0.4 ML SYR SQ SCH (08:30)
[2017-11-21] MEDS: ASPIRIN 81 MG ECTAB PO SCH (08:31)
[2017-11-21] MEDS: ESCITALOPRAM OXALATE 10 MG TAB PO SCH (08:31)
[2017-11-21] MEDS: CEROVITE ADV FORMULA TAB PO SCH (08:31)
[2017-11-21] MEDS: GABAPENTIN 300 MG CAP PO SCH ×2 (08:31→14:17)
[2017-11-21] MEDS: FLUTICASONE PROPIONATE NA SPR 16 GM BTL NAE SCH (08:31)
[2017-11-21] MEDS: ALBUTEROL HFA 8 GM INHALER INH SCH ×4 (08:32→22:20)
[2017-11-21] MEDS: INSULIN GLARGINE SOLOSTAR 100 UNITS/ML 3 ML PEN SC SCH ×2 (08:34→22:24)
[2017-11-21] MEDS: INSULIN ASPART 100 UNITS/ML 3 ML PEN SC SCH ×4 (08:35→21:00)
--- NOTE | 2017-11-21 11:53 | Medical Consult ---
Consultation Date of Consultation: Nov 21, 2017. Attending Physician: Cornelius Gray M.D. Reason for Consultation: VRE, UTI, daptomycin on board History of Present Illness 62-year-old female with history of cerebral palsy, hypothyroidism, diabetes mellitus, non alcoholic steatohepatitis, who underwent biopsy of bladder lesion several weeks ago. Subsequently developed hematuria, was given course of Bactrim without help. Recently came to the emergency department were found to have evidence of possible urinary tract infection, was subsequently given dose of IV daptomycin and started on Macrodantin for positive culture for VRE, but patient continued with weakness and dizziness with episodes of hematuria and so was admitted to the hospital for further management and IV antibiotics. She has been started on IV daptomycin. She has not had any significant fever, no flank pain. Culture from emergency room several days ago now also growing gram- negative bacilli as well as Enterococcus. Past Medical/Surgical History Medical Problems: (1) Abdominal pain Status: Acute (2) Abdominal pain Status: Acute (3) Bacteremia Status: Acute (4) Contusion of left hip Status: Acute (5) Contusion of left shoulder Status: Acute (6) Contusion of leg Status: Acute (7) Dehydration Status: Acute (8) Elevated troponin Status: Acute (9) Frequent falls Status: Acute (10) Generalized weakness Status: Acute (11) Hematuria Status: Acute (12) Hypoxia Status: Acute (13) Lactic acidosis Status: Acute (14) Left sided chest pain Status: Acute (15) UTI (urinary tract infection) Status: Acute (16) UTI (urinary tract infection) Status: Acute (17) UTI (urinary tract infection) Status: Acute (18) UTI (urinary tract infection) Status: Acute (19) UTI (urinary tract infection) Status: Acute (20) Weakness Status: Acute (21) Weakness Status: Acute Medical Problems: (1) Acute cystitis (2) Asthma (3) Bilateral lower extremity edema (4) Cerebral palsy (5) Chronic pain (6) Complicated UTI (urinary tract infection) (7) DM type 2 (diabetes mellitus, type 2) (8) Dyslipidemia (9) Fibromyalgia (10) VIDA (generalized anxiety disorder) (11) History of migraine (12) Hypothyroidism (13) Major depressive disorder, recurrent, moderate (14) NG (nonalcoholic steatohepatitis) (15) Obesity, morbid (more than 100 lbs over ideal weight or BMI > 40) (16) Obstructive sleep apnea (17) Osteoarthritis (18) Venous insufficiency Surgical Problems: (1) H/O Achilles tendon repair (2) H/O section (3) H/O wisdom tooth extraction (4) History of D&C Family History FH: CAD (coronary artery disease) MOTHER ([place] in her 50s) Social History Smoking Status: Never Smoker Smokeless Tobacco Use: No Alcohol Use: none Drug Use: none Marital Status: Housing Status: lives with family Occupation Status: disabled Allergies Coded Allergies: Penicillins (Verified Allergy, Intermediate, HIVES, 11/20/17) Current Inpatient Medications Current Inpatient Medications Medications (Trade) Dose Ordered Sig/Betsy Route Start Time Stop Time Status Last Admin Dose Admin Acetaminophen (Tylenol Tab) 650 mg Q4H PRN PO 11/21/17 02:00 12/21/17 01:59 Ondansetron HCl (Zofran Inj) 4 mg Q6H PRN IV 11/21/17 02:00 12/21/17 01:59 Polyethylene (Miralax Powder Packet) 17 gm DAILY PRN PO 11/21/17 02:00 12/21/17 01:59 Daptomycin (Consult) 1 ea UD PRN N/A 11/21/17 02:41 12/21/17 02:40 Daptomycin 500 mg/ Syringe 10 ml @ 5 mls/min Q24H IV 11/22/17 01:00 11/30/17 01:01 Sodium Chloride 1,000 ml @ 125 mls/hr Q8H IV 11/21/17 04:00 11/21/17 19:59 11/21/17 04:00 125 MLS/HR Albuterol (Ventolin Hfa Inhaler) 2 puffs QID INH 11/21/17 09:00 12/21/17 08:59 11/21/17 08:32 2 PUFFS Aspirin (Ecotrin Tab) 81 mg QAM PO 11/21/17 09:00 12/21/17 08:59 11/21/17 08:31 81 MG Atenolol (Tenormin Tab) 25 mg HS PO 11/21/17 21:00 12/21/17 20:59 Atorvastatin Calcium (Lipitor Tab) 40 mg HS PO 11/21/17 21:00 12/21/17 20:59 Cyclobenzaprine HCl (Flexeril Tab) 10 mg HS PRN PO 11/21/17 04:15 12/21/17 04:14 Escitalopram Oxalate (Lexapro Tab) 15 mg DAILY PO 11/21/17 09:00 12/21/17 08:59 11/21/17 08:31 15 MG Fluticasone Propionate (Flonase Nasal [place]) 2 sprays DAILY MARIO 11/21/17 09:00 12/21/17 08:59 11/21/17 08:31 2 SPRAYS Gabapentin (Neurontin Tab) 600 mg HS PO 11/21/17 21:00 12/21/17 20:59 Gabapentin (Neurontin Cap) 300 mg DAILY@0900,1400 PO 11/21/17 09:00 12/21/17 08:59 11/21/17 08:31 300 MG Acetaminophen/ Hydrocodone Bitart ([place] 10/325 Tab) 1 tab BID PRN PO 11/21/17 04:15 12/05/17 04:14 Albuterol/ Ipratropium (Duoneb) 3 ml QID PRN INH 11/21/17 04:15 12/21/17 04:14 Levothyroxine Sodium (Synthroid Tab) 88 mcg DAILYBB PO 11/22/17 06:30 12/22/17 06:29 Levothyroxine Sodium (Synthroid Tab) 100 mcg DAILYBB PO 11/21/17 06:30 12/21/17 06:29 11/21/17 05:49 100 MCG Multivitamins/ Minerals (Multivitamin W/ Minerals Tab) 1 tab QAM PO 11/21/17 09:00 12/21/17 08:59 11/21/17 08:31 1 TAB Insulin Glargine (Lantus Solostar Pen) 11 units Q12 SC 11/21/17 09:00 12/21/17 08:59 11/21/17 08:34 11 UNITS Insulin Aspart (novoLOG ASPART) SLIDING SCALE If C... ACHS SC 11/21/17 06:30 12/21/17 06:29 Glucose (Glucose 40% Gel) 15-30 GRAMS 15 GRAMS... UD PRN PO 11/21/17 04:15 12/21/17 04:14 Glucose (Glucose Chew Tab) 4-8 Tablets 4 Tabl... UD PRN PO 11/21/17 04:15 12/21/17 04:14 Dextrose (Dextrose 50% 50ML Syringe) 25-50ML OF 50% DW IV FOR... UD PRN IV 11/21/17 04:15 12/21/17 04:14 Glucagon (Glucagon Inj) 1 mg UD PRN SQ 11/21/17 04:15 12/21/17 04:14 Enoxaparin Sodium (Lovenox Inj) 40 mg QAM SQ 11/21/17 09:00 12/21/17 08:59 11/21/17 08:30 40 MG Review of Systems Constitutional: + weakness, + fatigue, No fever Eyes: No problem reported ENT: No problem reported Respiratory: No problem reported Cardiovascular: No problem reported Abdomen: No problem reported Musculoskeletal: No problem reported Genitourinary - Female: + hematuria Neurologic: + problem reported (Dizziness) Psychiatric: No problem reported Endocrine: No problem reported Hematologic / Lymphatic: No problem reported Integumentary: No problem reported Allergic / Immunologic: No problem reported Physical Exam Date Time Temp Pulse Resp B/P (MAP) Pulse Ox O2 Delivery O2 Flow Rate FiO2 11/21/17 11:28 38.1 110 20 107/65 (79) 94 11/21/17 08:57 37.2 11/21/17 08:20 Room Air 11/21/17 07:50 39.4 105 18 114/71 (85) 94 11/21/17 04:04 37.6 11/21/17 03:00 38.4 99 20 162/79 Room Air 11/21/17 02:28 109 20 97/61 93 11/21/17 01:48 109 20 97/61 93 Room Air 11/21/17 00:02 119 117/79 95 Room Air 11/20/17 23:01 116 24 149/93 93 Room Air 11/20/17 22:37 112 22 159/86 92 Room Air 11/20/17 21:43 116 22 125/78 94 Room Air 11/20/17 20:26 112 25 107/58 93 Room Air 11/20/17 19:18 107 11/20/17 17:59 37.8 107 22 147/84 96 Room Air General Appearance: WD/WN, no apparent distress, + obese Head: normocephalic, atraumatic Eyes: normal inspection, EOMI, sclerae normal ENT: normal ENT inspection, hearing grossly normal, pharynx normal Neck: supple, no adenopathy, thyroid normal, trachea midline Respiratory/Chest: chest non-tender, lungs clear, normal breath sounds, no respiratory distress Cardiovascular: regular rate, rhythm, no gallop, + systolic murmur Abdomen/GI: normal bowel sounds, non tender, soft, no organomegaly Back: normal inspection, no CVA tenderness Extremities/Musculoskelatal: normal inspection, no calf tenderness, normal capillary refill, non-tender Neurologic/Psych: alert, oriented x 3 Skin: normal color, warm/dry, no rash Lymphatic: no adenopathy Laboratory Results Date/Time Source Procedure Growth Status 11/21/17 01:19 Blood Blood Culture Pending Received 11/21/17 01:12 Blood Blood Culture Pending Received 11/20/17 19:37 Urine , Clean Catch Urine Culture Pending Received Last 24 Hours Test 11/20/17 19:37 11/20/17 20:15 11/20/17 20:59 11/21/17 04:23 Urine Color DK YELLOW Urine Appearance CLEAR Urine pH 5.0 Urine Specific [place] 1.025 Urine Protein NEG Urine Glucose (UA) NEG Urine Ketones TRACE Urine Occult Blood 2+ Urine Nitrite NEG Urine Bilirubin NEG Urine Urobilinogen NEG Urine Leukocyte Esterase MODERATE Urine WBC (Auto) >30 /hpf Urine RBC (Auto) 10-30 /hpf Urine Hyaline Casts (Auto) 1-5 /lpf Urine Epithelial Cells (Auto) >30 /lpf Urine Bacteria (Auto) NEG Urine Yeast (Auto) PRESENT Influenza Type A Antigen Neg for Influ A Influenza Type B Antigen Neg for Influ B White Blood Count 5.28 K/uL Red Blood Count 4.27 M/uL Hemoglobin 12.8 g/dL Hematocrit 40.8 % Mean Corpuscular Volume 95.6 fL Mean Corpuscular Hemoglobin 30.0 pg Mean Corpuscular Hemoglobin Concent 31.4 g/dl Platelet Count 109 K/uL Mean Platelet Volume 12.9 fL Neutrophils (%) (Auto) 86.0 % Lymphocytes (%) (Auto) 4.5 % Monocytes (%) (Auto) 4.5 % Eosinophils (%) (Auto) 4.4 % Basophils (%) (Auto) 0.2 % Neutrophils # (Auto) 4.54 K/uL Lymphocytes # (Auto) 0.24 K/uL Monocytes # (Auto) 0.24 K/uL Eosinophils # (Auto) 0.23 K/uL Basophils # (Auto) 0.01 K/uL RDW Standard Deviation 53.9 fL RDW Coefficient of Variation 15.5 % Immature Granulocyte % (Auto) 0.4 % Immature Granulocyte # (Auto) 0.02 K/uL Platelet Estimate DECREASED Prothrombin Time 11.1 SECONDS Prothromb Time International Ratio 1.1 Activated Partial Thromboplast Time 27.6 SECONDS Partial Thromboplastin Ratio 1.1 Sodium Level 139 mmol/L Potassium Level 4.3 mmol/L Chloride Level 107 mmol/L Carbon Dioxide Level 23 mmol/L Anion Gap 10.0 mmol/L Blood Urea Nitrogen 12 mg/dl Creatinine 0.86 mg/dl Est Creatinine Clear Calc Drug Dose 78.7 ml/min Estimated GFR () 83.9 Estimated GFR (Non- 72.4 BUN/Creatinine Ratio 14.2 Random Glucose 183 mg/dl Calcium Level 8.9 mg/dl Total Bilirubin 0.5 mg/dl Direct Bilirubin 0.2 mg/dl Aspartate Amino Transf (AST/SGOT) 34 U/L Alanine Aminotransferase (ALT/SGPT) 29 U/L Alkaline Phosphatase 124 U/L Troponin I < 0.015 ng/ml Pro-B-Type Natriuretic Peptide 45 pg/ml Total Protein 7.3 gm/dl Albumin 3.5 gm/dl Lipase 87 U/L Influenza Type A (RT-PCR) Neg for Influ A Influenza Type B (RT-PCR) Neg for Influ B Test 11/21/17 06:27 11/21/17 07:28 Estimated Average Glucose 151 mg/dl Hemoglobin A1c 6.9 % Total Creatine Kinase 170 U/L Bedside Glucose 161 mg/dl Patient Name: RYLAND SHAW Unit Number: [id number] Dictated: 11/20/171928 Transcribed: 11/20/171928 PAJ Printed Date/Time: [~ rep prt dt]/[~ rep prt tm] [~ rep ct labl] - [~ rep ct ivnm] [facility] [place] [address] Dictated: 11/20/171928 Transcribed: 11/20/171928 PAJ Printed Date/Time: [~ rep prt dt]/[~ rep prt tm] [~ rep ct labl] - [~ rep ct ivnm] CHEST ONE VIEW PORTABLE HISTORY: fevers COMPARISON: Chest 11/01/2017. FINDINGS: Low lung volumes. No pneumothorax. The heart remains mildly enlarged. Mild interstitial prominence persists. No new focal lung consolidations. IMPRESSION: No change compared to the prior study. Cardiomegaly and mild interstitial thickening persists. This may be chronic. No new focal lung consolidations. Electronically signed by: Cecil Matthew M.D. 11/20/2017 7:30 PM Dictated Date/Time: 11/20/2017 7:29 PM The status of this report is Signed. Draft = Not yet reviewed or approved by Radiologist. Signed = Reviewed and approved by Radiologist. <AttendingPhy></AttendingPhy> <FamilyPhy>Nancy Matute M.D. (MEDICAL)</ FamilyPhy> <PrimaryPhy>Nancy Matute M.D. (MEDICAL)</PrimaryPhy> <UnitNumber> [id number]</UnitNumber> <VisitNumber>[id number]</VisitNumber> <PatientName> RYLAND SHAW</PatientName> <DateOfBirth>1955</DateOfBirth> <Location>[facility] </Location> <ServiceDate>11/20/17</ServiceDate> <MNE>ESINDI</MNE> <OrderingPhy> Chaim Ge M.D.</OrderingPhy> <OrderingPhyMNE>f rep ord dr rojas</ OrderingPhyMNE> <DictatingPhyMNE>f rep dict dr rojas</DictatingPhyMNE> <CCListMNE> f rep ct mne</CCListMNE> <AdmittingPhyMNE>f pt admit dr rojas</AdmittingPhyMNE> < AttendingPhyMNE>f pt attend dr rojas</AttendingPhyMNE> <ConsultingPhyMNE>f pt consult dr rojas</ConsultingPhyMNE> <FamilyPhyMNE>f pt fam dr rojas</FamilyPhyMNE> <OtherPhyMNE>f pt other dr rojas</OtherPhyMNE> < PrimaryPhyMNE>f pt prim care dr rojas</PrimaryPhyMNE> <ReferringPhyMNE>f pt referring dr rojas</ReferringPhyMNE> Assessment & Plan Probable urinary tract infection with VRE in gram-negative bacilli. Pending identification and sensitivity of gram-negative isolate, patient will be started on aztreonam and daptomycin will be continued. Will follow.
[2017-11-21] MEDS: ACETAMINOPHEN 325 MG TAB PO PRN ×2 (12:26→19:43)
[2017-11-21] MEDS: AZTREONAM IV 2,000 MG in DEXTROSE 5% 100ML 100 ML IV SCH ×2 (14:17→22:19)
--- NOTE | 2017-11-21 19:31 | Progress Note ---
Medicine Progress Note Date & Time of Visit: Nov 21, 2017 at 19:21. Subjective Pt was seen and examined Lying in bed with no distress Pt said that her dizziness seems to get better Denies any chest pain, palpitation and SOB Objective Last 8 Hrs Date Time Temp Pulse Resp B/P (MAP) Pulse Ox O2 Delivery O2 Flow Rate FiO2 11/21/17 15:47 37.1 101 20 101/61 (74) 96 11/21/17 14:17 37.2 11/21/17 12:30 Room Air 11/21/17 11:28 38.1 110 20 107/65 (79) 94 Physical Exam: General- No acute distress Head- atraumatic Eyes- PERRL, EOMI ENT- oropharynx clear Neck- supple, no JVD Lungs- clear to auscultation Heart- regular rhythm Abdomen- normal bowel sounds Extremities- no calf tenderness Neuro- alert, oriented x 3; PERRL, EOMI Skin- warm & dry Laboratory Results: Last 24 Hours Test 11/20/17 19:37 11/20/17 20:15 11/20/17 20:59 11/21/17 04:23 Urine Color DK YELLOW Urine Appearance CLEAR Urine pH 5.0 Urine Specific [place] 1.025 Urine Protein NEG Urine Glucose (UA) NEG Urine Ketones TRACE Urine Occult Blood 2+ Urine Nitrite NEG Urine Bilirubin NEG Urine Urobilinogen NEG Urine Leukocyte Esterase MODERATE Urine WBC (Auto) >30 /hpf Urine RBC (Auto) 10-30 /hpf Urine Hyaline Casts (Auto) 1-5 /lpf Urine Epithelial Cells (Auto) >30 /lpf Urine Bacteria (Auto) NEG Urine Yeast (Auto) PRESENT Influenza Type A Antigen Neg for Influ A Influenza Type B Antigen Neg for Influ B White Blood Count 5.28 K/uL Red Blood Count 4.27 M/uL Hemoglobin 12.8 g/dL Hematocrit 40.8 % Mean Corpuscular Volume 95.6 fL Mean Corpuscular Hemoglobin 30.0 pg Mean Corpuscular Hemoglobin Concent 31.4 g/dl Platelet Count 109 K/uL Mean Platelet Volume 12.9 fL Neutrophils (%) (Auto) 86.0 % Lymphocytes (%) (Auto) 4.5 % Monocytes (%) (Auto) 4.5 % Eosinophils (%) (Auto) 4.4 % Basophils (%) (Auto) 0.2 % Neutrophils # (Auto) 4.54 K/uL Lymphocytes # (Auto) 0.24 K/uL Monocytes # (Auto) 0.24 K/uL Eosinophils # (Auto) 0.23 K/uL Basophils # (Auto) 0.01 K/uL RDW Standard Deviation 53.9 fL RDW Coefficient of Variation 15.5 % Immature Granulocyte % (Auto) 0.4 % Immature Granulocyte # (Auto) 0.02 K/uL Platelet Estimate DECREASED Prothrombin Time 11.1 SECONDS Prothromb Time International Ratio 1.1 Activated Partial Thromboplast Time 27.6 SECONDS Partial Thromboplastin Ratio 1.1 Sodium Level 139 mmol/L Potassium Level 4.3 mmol/L Chloride Level 107 mmol/L Carbon Dioxide Level 23 mmol/L Anion Gap 10.0 mmol/L Blood Urea Nitrogen 12 mg/dl Creatinine 0.86 mg/dl Est Creatinine Clear Calc Drug Dose 78.7 ml/min Estimated GFR () 83.9 Estimated GFR (Non- 72.4 BUN/Creatinine Ratio 14.2 Random Glucose 183 mg/dl Calcium Level 8.9 mg/dl Total Bilirubin 0.5 mg/dl Direct Bilirubin 0.2 mg/dl Aspartate Amino Transf (AST/SGOT) 34 U/L Alanine Aminotransferase (ALT/SGPT) 29 U/L Alkaline Phosphatase 124 U/L Troponin I < 0.015 ng/ml Pro-B-Type Natriuretic Peptide 45 pg/ml Total Protein 7.3 gm/dl Albumin 3.5 gm/dl Lipase 87 U/L Influenza Type A (RT-PCR) Neg for Influ A Influenza Type B (RT-PCR) Neg for Influ B Test 11/21/17 06:27 11/21/17 07:28 11/21/17 11:46 11/21/17 16:13 Estimated Average Glucose 151 mg/dl Hemoglobin A1c 6.9 % Total Creatine Kinase 170 U/L Bedside Glucose 161 mg/dl 145 mg/dl 147 mg/dl Date/Time Source Procedure Growth Status 11/21/17 01:19 Blood Blood Culture Pending Received 11/21/17 01:12 Blood Blood Culture Pending Received 11/20/17 19:37 Urine , Clean Catch Urine Culture - Preliminary PIN-POINT GROWTH PRESENT, REINCUBATING. Resulted Assessment & Plan 62-year-old female with cerebral palsy ambulatory dysfunction at baseline presents with worsening lightheadedness, recent hematuria, and VRE UTI. Lightheadedness Might be related to medications such as gabapentin/George vs UTI? CT head showed No significant change compared to the prior study. No acute intracranial abnormality. Clinically improved Fall precaution unable to do orthostatic due to unsteadiness (chronic) VRE UTI UA positive for leukocytes, cultures pending ID consulted Recommended to continue dapto and adding Aztreonam Systolic ejection murmur Hx of MRSA bacteremia in July 2017. Repeat echo pending Morbid obesity Diet and and counseling on weight loss Type 2 diabetes Hba1c 6.9 insulin sliding scale with carb coverage and Lantus as inpatient. DVT prophylaxis-Lovenox Full code Disposition-telemetry Current Inpatient Medications: Current Inpatient Medications Medications (Trade) Dose Ordered Sig/Betsy Route Start Time Stop Time Status Last Admin Dose Admin Acetaminophen (Tylenol Tab) 650 mg Q4H PRN PO 11/21/17 02:00 12/21/17 01:59 11/21/17 12:26 650 MG Ondansetron HCl (Zofran Inj) 4 mg Q6H PRN IV 11/21/17 02:00 12/21/17 01:59 Polyethylene (Miralax Powder Packet) 17 gm DAILY PRN PO 11/21/17 02:00 12/21/17 01:59 Daptomycin (Consult) 1 ea UD PRN N/A 11/21/17 02:41 12/21/17 02:40 Daptomycin 500 mg/ Syringe 10 ml @ 5 mls/min Q24H IV 11/22/17 01:00 11/30/17 01:01 Sodium Chloride 1,000 ml @ 125 mls/hr Q8H IV 11/21/17 04:00 11/21/17 19:59 11/21/17 12:25 125 MLS/HR Albuterol (Ventolin Hfa Inhaler) 2 puffs QID INH 11/21/17 09:00 12/21/17 08:59 11/21/17 17:34 2 PUFFS Aspirin (Ecotrin Tab) 81 mg QAM PO 11/21/17 09:00 12/21/17 08:59 11/21/17 08:31 81 MG Atenolol (Tenormin Tab) 25 mg HS PO 11/21/17 21:00 12/21/17 20:59 Atorvastatin Calcium (Lipitor Tab) 40 mg HS PO 11/21/17 21:00 12/21/17 20:59 Cyclobenzaprine HCl (Flexeril Tab) 10 mg HS PRN PO 11/21/17 04:15 12/21/17 04:14 Escitalopram Oxalate (Lexapro Tab) 15 mg DAILY PO 11/21/17 09:00 12/21/17 08:59 11/21/17 08:31 15 MG Fluticasone Propionate (Flonase Nasal [place]) 2 sprays DAILY MRAIO 11/21/17 09:00 12/21/17 08:59 11/21/17 08:31 2 SPRAYS Gabapentin (Neurontin Tab) 600 mg HS PO 11/21/17 21:00 12/21/17 20:59 Gabapentin (Neurontin Cap) 300 mg DAILY@0900,1400 PO 11/21/17 09:00 12/21/17 08:59 11/21/17 14:17 300 MG Acetaminophen/ Hydrocodone Bitart ([place] 10/325 Tab) 1 tab BID PRN PO 11/21/17 04:15 12/05/17 04:14 Albuterol/ Ipratropium (Duoneb) 3 ml QID PRN INH 11/21/17 04:15 12/21/17 04:14 Levothyroxine Sodium (Synthroid Tab) 88 mcg DAILYBB PO 11/22/17 06:30 12/22/17 06:29 Levothyroxine Sodium (Synthroid Tab) 100 mcg DAILYBB PO 11/21/17 06:30 12/21/17 06:29 11/21/17 05:49 100 MCG Multivitamins/ Minerals (Multivitamin W/ Minerals Tab) 1 tab QAM PO 11/21/17 09:00 12/21/17 08:59 11/21/17 08:31 1 TAB Insulin Glargine (Lantus Solostar Pen) 11 units Q12 SC 11/21/17 09:00 12/21/17 08:59 11/21/17 08:34 11 UNITS Insulin Aspart (novoLOG ASPART) SLIDING SCALE If C... ACHS SC 11/21/17 06:30 12/21/17 06:29 11/21/17 12:25 1 UNITS Glucose (Glucose 40% Gel) 15-30 GRAMS 15 GRAMS... UD PRN PO 11/21/17 04:15 12/21/17 04:14 Glucose (Glucose Chew Tab) 4-8 Tablets 4 Tabl... UD PRN PO 11/21/17 04:15 12/21/17 04:14 Dextrose (Dextrose 50% 50ML Syringe) 25-50ML OF 50% DW IV FOR... UD PRN IV 11/21/17 04:15 12/21/17 04:14 Glucagon (Glucagon Inj) 1 mg UD PRN SQ 11/21/17 04:15 12/21/17 04:14 Enoxaparin Sodium (Lovenox Inj) 40 mg QAM SQ 11/21/17 09:00 12/21/17 08:59 11/21/17 08:30 40 MG Aztreonam 2000 mg/ Dextrose 110 ml @ 100 mls/hr Q8H IV 11/21/17 13:00 12/01/17 12:59 11/21/17 14:17 100 MLS/HR
--- NOTE | 2017-11-21 21:16 | ECHOCARDIOGRAM REPORT ---
*NOTICE TO RECEIVING REPUBLICAN AGENCY This information is strictly Confidential and protected under [place] law. [place] law prohibits you from making any further disclosure of this information unless further disclosure is expressly permitted by the written consent of the person to whom it pertains or is authorized by law. A general authorization for the release of medical or other information is not sufficient for this purpose. Hospital accepts no responsibility if the information is made available to any other person, INCLUDING THE PATIENT. Interpretation Summary * Name: RYLAND SHAW Study Date: 11/21/2017 02:28 PM BP: 101/61 mmHg * Patient Location: [facility]\S\N279\S\1 HR: 113 * : 1955 (M/d/yyyy) Gender: Female Height: 59 in * Age: 62 yrs Ethnicity: [place] Weight: 262 lb * Ordering Physician: Renetta Michelle * Referring Physician: Self, Referred * Performed By: Dominique Jaar RCS * * Reason For Study: MURMUR / H/O BACTEREMIA / LIGHTHEADED * BSA: 2.1 m2 * -- Conclusions -- * The study was technically limited. * Acoustic windows are poor and not adequate for evaluation of cardiac valves. * The aortic valve is not well visualized, but there appears to be focal thickening one of the aortic valve cusps. * Refer to below for additional details. Procedure Details * A complete two-dimensional transthoracic echocardiogram was performed (2D, M-mode, Doppler and color flow Doppler). * The study was technically difficult. Left Ventricle * The left ventricle is normal in size. * There is mild concentric left ventricular hypertrophy. * Ejection Fraction = 60-65%. * Left ventricular wall motion is grossly normal on technically limited assessment. Right Ventricle * The right ventricular systolic function is normal as assessed by tricuspid annular plane systolic excursion (TAPSE) (normal >1.5 cm). Mitral Valve * The mitral valve is not well visualized. * There is no mitral valve stenosis. * There is trace mitral regurgitation. Tricuspid Valve * The tricuspid valve is not well visualized. * Significant tricuspid regurgitation is absent. Aortic Valve * The aortic valve is not well visualized, but there appears to be focal thickening one of the aortic valve cusps. * No hemodynamically significant valvular aortic stenosis. * There is no significant aortic regurgitation. Left Ventricular Diastolic Function * Grade I diastolic dysfunction, (abnormal relaxation pattern). MMode 2D Measurements and Calculations IVSd 1.8 cm IVSs 2.1 cm LVIDd 4.8 cm LVIDs 2.8 cm LVPWd 1.1 cm LVPWs 1.7 cm IVS/LVPW 1.6 FS 42.3 % EDV(Teich) 108.6 ml ESV(Teich) 29.1 ml EF(Teich) 73.2 % EDV(cubed) 112.0 ml ESV(cubed) 21.5 ml EF(cubed) 80.8 % % IVS thick 16.3 % % LVPW thick 54.8 % LV mass(C)d 283.9 grams LV mass(C)dI 137.2 grams/m\S\2 LV mass(C)s 213.4 grams LV mass(C)sI 103.2 grams/m\S\2 SV(Teich) 79.5 ml SI(Teich) 38.5 ml/m\S\2 SV(cubed) 90.5 ml SI(cubed) 43.8 ml/m\S\2 LVOT diam 2.0 cm LVOT area 3.1 cm\S\2 LVAd ap4 31.7 cm\S\2 LVLd ap4 8.0 cm EDV(MOD-sp4) 103.9 ml EDV(sp4-el) 107.1 ml LVAs ap4 24.0 cm\S\2 LVLs ap4 7.6 cm ESV(MOD-sp4) 61.0 ml ESV(sp4-el) 64.3 ml EF(MOD-sp4) 41.2 % EF(sp4-el) 40.0 % LVAd ap2 23.6 cm\S\2 LVLd ap2 7.0 cm EDV(MOD-sp2) 63.7 ml EDV(sp2-el) 67.7 ml LVAs ap2 13.6 cm\S\2 LVLs ap2 5.6 cm ESV(MOD-sp2) 26.8 ml ESV(sp2-el) 28.0 ml EF(MOD-sp2) 57.9 % EF(sp2-el) 58.6 % LVLd %diff -13.95 % EDV(MOD-bp) 83.8 ml LVLs %diff -350 % ESV(MOD-bp) 46.7 ml EF(MOD-bp) 44.3 % SV(MOD-sp4) 42.8 ml SI(MOD-sp4) 20.7 ml/m\S\2 SV(MOD-sp2) 36.9 ml SI(MOD-sp2) 17.9 ml/m\S\2 SV(MOD-bp) 37.1 ml SI(MOD-bp) 17.9 ml/m\S\2 SV(sp4-el) 42.8 ml SI(sp4-el) 20.7 ml/m\S\2 SV(sp2-el) 39.7 ml SI(sp2-el) 19.2 ml/m\S\2 Doppler Measurements and Calculations MV E max victoriano 122.3 cm/sec MV A max victoriano 143.2 cm/sec MV E/A 0.85 MV P1/2t max victoriano 132.0 cm/sec MV P1/2t 95.5 msec MVA(P1/2t) 2.3 cm\S\2 MV dec slope 404.7 cm/sec\S\2 MV dec time 0.32 sec Ao V2 max 202.2 cm/sec Ao max PG 16.4 mmHg Ao max PG (full) 5.4 mmHg SAMPSON(V,A) 2.5 cm\S\2 SAMPSON(V,D) 2.5 cm\S\2 LV V1 max PG 10.9 mmHg LV V1 max 165.2 cm/sec MR max victoriano 530.0 cm/sec MR max PG 112.3 mmHg PA V2 max 119.1 cm/sec PA max PG 5.7 mmHg
[2017-11-21] MEDS: GABAPENTIN 600 MG TAB PO SCH (22:21)
[2017-11-22] VITALS (9 sets, daily range): BP systolic 109–149; BP diastolic 62–81; PULSE 78–95; TEMP 36.4–37.6; O2SAT 90–96
[2017-11-22] MEDS: DAPTOmycin IV 500 MG in SYRINGE 0 ML IV SCH (01:03)
[2017-11-22] MEDS: AZTREONAM IV 2,000 MG in DEXTROSE 5% 100ML 100 ML IV SCH ×3 (05:15→21:58)
[2017-11-22] MEDS: LEVOTHYROXINE 100 MCG TAB PO SCH (05:16)
[2017-11-22] MEDS: LEVOTHYROXINE 88 MCG TAB PO SCH (05:16)
[2017-11-22 07:45] LABS: HEMATOCRIT 30.9 % (37-47); MEAN CELL VOLUME 92.8 fL (80-100); MEAN CORPUSCULAR HGB CONC 32.4 g/dl (32-36); RED CELL DISTRIBUTION WIDTH CV 16.5 % (11.5-14.5); WHITE BLOOD COUNT 3.36 K/uL (4.8-10.8)
[2017-11-22 08:06] LABS: CREATININE 0.73 mg/dl (0.60-1.20); POTASSIUM 3.4 mmol/L (3.5-5.1)
[2017-11-22 08:26] LABS: MEAN PLATELET VOLUME 11.7 fL (7.4-10.4); PLATELET COUNT 75 K/uL (130-400)
[2017-11-22] MEDS ORDERED: POTASSIUM CHLORIDE 20 MEQ TABCR PO ONE (08:45)
[2017-11-22] MEDS: ATORVASTATIN 40 MG TAB PO SCH ×2 (08:54→21:59)
[2017-11-22] MEDS: ESCITALOPRAM OXALATE 10 MG TAB PO SCH (08:56)
[2017-11-22] MEDS: ALBUTEROL HFA 8 GM INHALER INH SCH ×4 (08:56→21:58)
[2017-11-22] MEDS: GABAPENTIN 300 MG CAP PO SCH ×2 (08:56→13:31)
[2017-11-22] MEDS: ASPIRIN 81 MG ECTAB PO SCH (08:56)
[2017-11-22] MEDS: CEROVITE ADV FORMULA TAB PO SCH (08:56)
[2017-11-22] MEDS: ENOXAPARIN 40 MG/0.4 ML SYR SQ SCH (08:57)
[2017-11-22] MEDS: FLUTICASONE PROPIONATE NA SPR 16 GM BTL NAE SCH (08:57)
[2017-11-22] MEDS: INSULIN ASPART 100 UNITS/ML 3 ML PEN SC SCH ×4 (09:07→22:00)
[2017-11-22] MEDS: INSULIN GLARGINE SOLOSTAR 100 UNITS/ML 3 ML PEN SC SCH ×2 (09:07→22:07)
--- NOTE | 2017-11-22 17:58 | Progress Note ---
Medicine Progress Note Date & Time of Visit: Nov 22, 2017 at 17:38. Subjective Pt was seen and examined Lying in bed with no distress Pt said that she feels much better She said that she does not have any more dizziness She said that she walked in her room to the doors Denies any chest pain, palpitation and SOB Objective Last 8 Hrs Date Time Temp Pulse Resp B/P (MAP) Pulse Ox O2 Delivery O2 Flow Rate FiO2 11/22/17 16:10 37.3 95 24 149/74 (99) 92 Room Air 11/22/17 14:17 37.2 88 20 109/69 (82) 91 Room Air Physical Exam: General- No acute distress Head- atraumatic Eyes- PERRL, EOMI ENT- oropharynx clear Neck- supple, no JVD Lungs- clear to auscultation Heart- regular rhythm Abdomen- normal bowel sounds Extremities- no calf tenderness Neuro- alert, oriented x 3; PERRL, EOMI Skin- warm & dry Laboratory Results: Last 24 Hours Test 11/21/17 21:02 11/22/17 07:29 11/22/17 07:51 11/22/17 11:55 Bedside Glucose 170 mg/dl 105 mg/dl 153 mg/dl White Blood Count 3.36 K/uL Red Blood Count 3.33 M/uL Hemoglobin 10.0 g/dL Hematocrit 30.9 % Mean Corpuscular Volume 92.8 fL Mean Corpuscular Hemoglobin 30.0 pg Mean Corpuscular Hemoglobin Concent 32.4 g/dl RDW Standard Deviation 56.0 fL RDW Coefficient of Variation 16.5 % Platelet Count 75 K/uL Mean Platelet Volume 11.7 fL Platelet Estimate DECREASED Sodium Level 138 mmol/L Potassium Level 3.4 mmol/L Chloride Level 107 mmol/L Carbon Dioxide Level 26 mmol/L Anion Gap 6.0 mmol/L Blood Urea Nitrogen 11 mg/dl Creatinine 0.73 mg/dl Est Creatinine Clear Calc Drug Dose 95.7 ml/min Estimated GFR () 102.3 Estimated GFR (Non- 88.3 BUN/Creatinine Ratio 14.9 Random Glucose 112 mg/dl Calcium Level 8.0 mg/dl Test 11/22/17 16:24 Bedside Glucose 102 mg/dl Date/Time Source Procedure Growth Status 11/22/17 16:20 Urine , Clean Catch Urine Culture Pending Received Assessment & Plan 62-year-old female with cerebral palsy ambulatory dysfunction at baseline presents with worsening lightheadedness, recent hematuria, and VRE UTI. Lightheadedness Might be related to medications such as gabapentin/[place] vs UTI? CT head showed No significant change compared to the prior study. No acute intracranial abnormality. Clinically improved Fall precaution unable to do orthostatic due to unsteadiness (chronic) Resolved VRE UTI UA positive for leukocytes, cultures pending ID consulted Recommended to continue dapto and adding Aztreonam Urine grew more than 3 organisms (Mostly contaminated) Will repeat urine cx Systolic ejection murmur Hx of MRSA bacteremia in July 2017. ECHO showed * The study was technically limited. * Acoustic windows are poor and not adequate for evaluation of cardiac valves. * The aortic valve is not well visualized, but there appears to be focal thickening one of the aortic valve cusps. Morbid obesity Diet and and counseling on weight loss Type 2 diabetes Hba1c 6.9 insulin sliding scale with carb coverage and Lantus as inpatient. DVT prophylaxis-Lovenox Full code Disposition-telemetry Current Inpatient Medications: Current Inpatient Medications Medications (Trade) Dose Ordered Sig/Betsy Route Start Time Stop Time Status Last Admin Dose Admin Acetaminophen (Tylenol Tab) 650 mg Q4H PRN PO 11/21/17 02:00 12/21/17 01:59 11/21/17 19:43 650 MG Ondansetron HCl (Zofran Inj) 4 mg Q6H PRN IV 11/21/17 02:00 12/21/17 01:59 Polyethylene (Miralax Powder Packet) 17 gm DAILY PRN PO 11/21/17 02:00 12/21/17 01:59 Daptomycin (Consult) 1 ea UD PRN N/A 11/21/17 02:41 12/21/17 02:40 Daptomycin 500 mg/ Syringe 10 ml @ 5 mls/min Q24H IV 11/22/17 01:00 11/30/17 01:01 11/22/17 01:03 5 MLS/MIN Albuterol (Ventolin Hfa Inhaler) 2 puffs QID INH 11/21/17 09:00 12/21/17 08:59 11/22/17 16:32 2 PUFFS Aspirin (Ecotrin Tab) 81 mg QAM PO 11/21/17 09:00 12/21/17 08:59 11/22/17 08:56 81 MG Atenolol (Tenormin Tab) 25 mg HS PO 11/21/17 21:00 12/21/17 20:59 11/21/17 22:22 25 MG Atorvastatin Calcium (Lipitor Tab) 40 mg HS PO 11/21/17 21:00 12/21/17 20:59 Cyclobenzaprine HCl (Flexeril Tab) 10 mg HS PRN PO 11/21/17 04:15 12/21/17 04:14 Escitalopram Oxalate (Lexapro Tab) 15 mg DAILY PO 11/21/17 09:00 12/21/17 08:59 11/22/17 08:56 15 MG Fluticasone Propionate (Flonase Nasal [place]) 2 sprays DAILY MARIO 11/21/17 09:00 12/21/17 08:59 11/22/17 08:57 2 SPRAYS Gabapentin (Neurontin Tab) 600 mg HS PO 11/21/17 21:00 12/21/17 20:59 11/21/17 22:21 600 MG Gabapentin (Neurontin Cap) 300 mg DAILY@0900,1400 PO 11/21/17 09:00 12/21/17 08:59 11/22/17 13:31 300 MG Acetaminophen/ Hydrocodone Bitart ([place] 10/325 Tab) 1 tab BID PRN PO 11/21/17 04:15 12/05/17 04:14 Albuterol/ Ipratropium (Duoneb) 3 ml QID PRN INH 11/21/17 04:15 12/21/17 04:14 Levothyroxine Sodium (Synthroid Tab) 88 mcg DAILYBB PO 11/22/17 06:30 12/22/17 06:29 11/22/17 05:16 88 MCG Levothyroxine Sodium (Synthroid Tab) 100 mcg DAILYBB PO 11/21/17 06:30 12/21/17 06:29 11/22/17 05:16 100 MCG Multivitamins/ Minerals (Multivitamin W/ Minerals Tab) 1 tab QAM PO 11/21/17 09:00 12/21/17 08:59 11/22/17 08:56 1 TAB Insulin Glargine (Lantus Solostar Pen) 11 units Q12 SC 11/21/17 09:00 12/21/17 08:59 11/22/17 09:07 11 UNITS Insulin Aspart (novoLOG ASPART) SLIDING SCALE If C... ACHS SC 11/21/17 06:30 12/21/17 06:29 11/22/17 12:35 4 UNITS Glucose (Glucose 40% Gel) 15-30 GRAMS 15 GRAMS... UD PRN PO 11/21/17 04:15 12/21/17 04:14 Glucose (Glucose Chew Tab) 4-8 Tablets 4 Tabl... UD PRN PO 11/21/17 04:15 12/21/17 04:14 Dextrose (Dextrose 50% 50ML Syringe) 25-50ML OF 50% DW IV FOR... UD PRN IV 11/21/17 04:15 12/21/17 04:14 Glucagon (Glucagon Inj) 1 mg UD PRN SQ 11/21/17 04:15 12/21/17 04:14 Enoxaparin Sodium (Lovenox Inj) 40 mg QAM SQ 11/21/17 09:00 12/21/17 08:59 11/22/17 08:57 40 MG Aztreonam 2000 mg/ Dextrose 110 ml @ 100 mls/hr Q8H IV 11/21/17 13:00 12/01/17 12:59 11/22/17 12:34 100 MLS/HR
[2017-11-22] MEDS: GABAPENTIN 600 MG TAB PO SCH (22:00)
[2017-11-23] MEDS: DAPTOmycin IV 500 MG in SYRINGE 0 ML IV SCH ×2 (01:44→23:48)
[2017-11-23 04:14] VITALS: BP 107/71; PULSE 60; TEMP 37; O2SAT 93
[2017-11-23] MEDS: AZTREONAM IV 2,000 MG in DEXTROSE 5% 100ML 100 ML IV SCH ×3 (05:54→20:48)
[2017-11-23] MEDS: LEVOTHYROXINE 88 MCG TAB PO SCH (05:54)
[2017-11-23] MEDS: LEVOTHYROXINE 100 MCG TAB PO SCH (05:54)
[2017-11-23 07:49] VITALS: BP 98/54; PULSE 64; TEMP 36.8; O2SAT 94
[2017-11-23] MEDS: CEROVITE ADV FORMULA TAB PO SCH (08:12)
[2017-11-23] MEDS: ALBUTEROL HFA 8 GM INHALER INH SCH ×4 (08:12→20:39)
[2017-11-23] MEDS: FLUTICASONE PROPIONATE NA SPR 16 GM BTL NAE SCH (08:12)
[2017-11-23] MEDS: GABAPENTIN 300 MG CAP PO SCH ×2 (08:13→13:55)
[2017-11-23] MEDS: ASPIRIN 81 MG ECTAB PO SCH (08:13)
[2017-11-23] MEDS: ESCITALOPRAM OXALATE 10 MG TAB PO SCH (08:13)
[2017-11-23] MEDS: ENOXAPARIN 40 MG/0.4 ML SYR SQ SCH (08:14)
[2017-11-23] MEDS: INSULIN ASPART 100 UNITS/ML 3 ML PEN SC SCH ×4 (08:16→20:48)
[2017-11-23] MEDS: INSULIN GLARGINE SOLOSTAR 100 UNITS/ML 3 ML PEN SC SCH ×2 (08:16→20:53)
[2017-11-23 11:57] VITALS: BP 147/72; PULSE 76; TEMP 36.9; O2SAT 95
[2017-11-23 15:30] VITALS: BP 129/75
[2017-11-23 16:10] VITALS: BP 117/69; PULSE 69; TEMP 37.1; O2SAT 95
--- NOTE | 2017-11-23 19:14 | Progress Note ---
Medicine Progress Note Date & Time of Visit: Nov 23, 2017 at 19:12. Subjective Pt was seen and examined Lying in bed with no distress Pt said that she feels fine Denies any fever, palpitation and SOB Objective Last 8 Hrs Date Time Temp Pulse Resp B/P (MAP) Pulse Ox O2 Delivery O2 Flow Rate FiO2 11/23/17 16:10 37.1 69 20 117/69 (85) 95 Room Air 11/23/17 16:00 Room Air 11/23/17 11:57 36.9 76 18 147/72 (97) 95 2.0 Physical Exam: General- No acute distress Head- atraumatic Eyes- PERRL, EOMI ENT- oropharynx clear Neck- supple, no JVD Lungs- clear to auscultation Heart- regular rhythm Abdomen- normal bowel sounds Extremities- no calf tenderness Neuro- alert, oriented x 3; PERRL, EOMI Skin- warm & dry Laboratory Results: Last 24 Hours Test 11/22/17 20:21 11/23/17 07:36 11/23/17 11:38 11/23/17 16:40 Bedside Glucose 121 mg/dl 131 mg/dl 119 mg/dl 87 mg/dl Assessment & Plan 62-year-old female with cerebral palsy ambulatory dysfunction at baseline presents with worsening lightheadedness, recent hematuria, and VRE UTI. Lightheadedness Might be related to medications such as gabapentin/[place] vs UTI? CT head showed No significant change compared to the prior study. No acute intracranial abnormality. Clinically improved Fall precaution unable to do orthostatic due to unsteadiness (chronic) Resolved VRE UTI UA positive for leukocytes, cultures pending ID consulted Recommended to continue dapto and adding Aztreonam Urine grew more than 3 organisms (Mostly contaminated) repeat urine cx no growth will discussed with ID for abx on discharge Systolic ejection murmur Hx of MRSA bacteremia in July 2017. ECHO showed * The study was technically limited. * Acoustic windows are poor and not adequate for evaluation of cardiac valves. * The aortic valve is not well visualized, but there appears to be focal thickening one of the aortic valve cusps. Morbid obesity Diet and and counseling on weight loss Type 2 diabetes Hba1c 6.9 insulin sliding scale with carb coverage and Lantus as inpatient. DVT prophylaxis-Lovenox Full code Disposition will discharge tomorrow Current Inpatient Medications: Current Inpatient Medications Medications (Trade) Dose Ordered Sig/Betsy Route Start Time Stop Time Status Last Admin Dose Admin Acetaminophen (Tylenol Tab) 650 mg Q4H PRN PO 11/21/17 02:00 12/21/17 01:59 11/21/17 19:43 650 MG Ondansetron HCl (Zofran Inj) 4 mg Q6H PRN IV 11/21/17 02:00 12/21/17 01:59 Polyethylene (Miralax Powder Packet) 17 gm DAILY PRN PO 11/21/17 02:00 12/21/17 01:59 Daptomycin (Consult) 1 ea UD PRN N/A 11/21/17 02:41 12/21/17 02:40 Daptomycin 500 mg/ Syringe 10 ml @ 5 mls/min Q24H IV 11/22/17 01:00 11/30/17 01:01 11/23/17 01:44 5 MLS/MIN Albuterol (Ventolin Hfa Inhaler) 2 puffs QID INH 11/21/17 09:00 12/21/17 08:59 11/23/17 17:32 2 PUFFS Aspirin (Ecotrin Tab) 81 mg QAM PO 11/21/17 09:00 12/21/17 08:59 11/23/17 08:13 81 MG Atenolol (Tenormin Tab) 25 mg HS PO 11/21/17 21:00 12/21/17 20:59 11/22/17 21:59 25 MG Atorvastatin Calcium (Lipitor Tab) 40 mg HS PO 11/21/17 21:00 12/21/17 20:59 11/22/17 21:59 40 MG Cyclobenzaprine HCl (Flexeril Tab) 10 mg HS PRN PO 11/21/17 04:15 12/21/17 04:14 Escitalopram Oxalate (Lexapro Tab) 15 mg DAILY PO 11/21/17 09:00 12/21/17 08:59 11/23/17 08:13 15 MG Fluticasone Propionate (Flonase Nasal [place]) 2 sprays DAILY MARIO 11/21/17 09:00 12/21/17 08:59 11/23/17 08:12 2 SPRAYS Gabapentin (Neurontin Tab) 600 mg HS PO 11/21/17 21:00 12/21/17 20:59 11/22/17 22:00 600 MG Gabapentin (Neurontin Cap) 300 mg DAILY@0900,1400 PO 11/21/17 09:00 12/21/17 08:59 11/23/17 13:55 300 MG Acetaminophen/ Hydrocodone Bitart ([place] 10/325 Tab) 1 tab BID PRN PO 11/21/17 04:15 12/05/17 04:14 Albuterol/ Ipratropium (Duoneb) 3 ml QID PRN INH 11/21/17 04:15 12/21/17 04:14 Levothyroxine Sodium (Synthroid Tab) 88 mcg DAILYBB PO 11/22/17 06:30 12/22/17 06:29 11/23/17 05:54 88 MCG Levothyroxine Sodium (Synthroid Tab) 100 mcg DAILYBB PO 11/21/17 06:30 12/21/17 06:29 11/23/17 05:54 100 MCG Multivitamins/ Minerals (Multivitamin W/ Minerals Tab) 1 tab QAM PO 11/21/17 09:00 12/21/17 08:59 11/23/17 08:12 1 TAB Insulin Glargine (Lantus Solostar Pen) 11 units Q12 SC 11/21/17 09:00 12/21/17 08:59 11/23/17 08:16 11 UNITS Insulin Aspart (novoLOG ASPART) SLIDING SCALE If C... ACHS SC 11/21/17 06:30 12/21/17 06:29 11/23/17 12:45 2 UNITS Glucose (Glucose 40% Gel) 15-30 GRAMS 15 GRAMS... UD PRN PO 11/21/17 04:15 12/21/17 04:14 Glucose (Glucose Chew Tab) 4-8 Tablets 4 Tabl... UD PRN PO 11/21/17 04:15 12/21/17 04:14 Dextrose (Dextrose 50% 50ML Syringe) 25-50ML OF 50% DW IV FOR... UD PRN IV 11/21/17 04:15 12/21/17 04:14 Glucagon (Glucagon Inj) 1 mg UD PRN SQ 11/21/17 04:15 12/21/17 04:14 Enoxaparin Sodium (Lovenox Inj) 40 mg QAM SQ 11/21/17 09:00 4/12/18 08:59 11/23/17 08:14 40 MG Aztreonam 2000 mg/ Dextrose 110 ml @ 100 mls/hr Q8H IV 11/21/17 13:00 12/01/17 12:59 11/23/17 12:41 100 MLS/HR
[2017-11-23] MEDS: ATORVASTATIN 40 MG TAB PO SCH (20:39)
[2017-11-23] MEDS: GABAPENTIN 600 MG TAB PO SCH (20:40)
[2017-11-23 23:59] VITALS: BP 127/79; PULSE 66; TEMP 36.8; O2SAT 94
[2017-11-24] VITALS: O2SAT 94
[2017-11-24] MEDS: LEVOTHYROXINE 88 MCG TAB PO SCH (05:31)
[2017-11-24] MEDS: LEVOTHYROXINE 100 MCG TAB PO SCH (05:31)
[2017-11-24] MEDS: AZTREONAM IV 2,000 MG in DEXTROSE 5% 100ML 100 ML IV SCH ×3 (05:31→21:17)
[2017-11-24 06:42] LABS: HEMATOCRIT 31.8 % (37-47); MEAN CELL VOLUME 93.8 fL (80-100); MEAN CORPUSCULAR HEMOGLOBIN 29.5 pg (25-34); MEAN CORPUSCULAR HGB CONC 31.4 g/dl (32-36); PLATELET COUNT 98 K/uL (130-400); RED CELL DISTRIBUTION WIDTH SD 54.6 fL (36.4-46.3); WHITE BLOOD COUNT 2.97 K/uL (4.8-10.8)
[2017-11-24 06:59] LABS: CREATININE 0.62 mg/dl (0.60-1.20)
[2017-11-24 08:00] VITALS: O2SAT 94
[2017-11-24 08:13] VITALS: BP 107/70; PULSE 66; TEMP 36.8; O2SAT 93
[2017-11-24] MEDS: INSULIN GLARGINE SOLOSTAR 100 UNITS/ML 3 ML PEN SC SCH ×2 (09:33→21:16)
[2017-11-24] MEDS: GABAPENTIN 300 MG CAP PO SCH ×2 (09:42→13:54)
[2017-11-24] MEDS: ESCITALOPRAM OXALATE 10 MG TAB PO SCH (09:42)
[2017-11-24] MEDS: FLUTICASONE PROPIONATE NA SPR 16 GM BTL NAE SCH (09:43)
[2017-11-24] MEDS: ENOXAPARIN 40 MG/0.4 ML SYR SQ SCH (09:43)
[2017-11-24] MEDS: INSULIN ASPART 100 UNITS/ML 3 ML PEN SC SCH ×4 (09:43→21:08)
[2017-11-24] MEDS: ALBUTEROL HFA 8 GM INHALER INH SCH ×4 (09:43→21:09)
[2017-11-24] MEDS: ASPIRIN 81 MG ECTAB PO SCH (09:43)
[2017-11-24] MEDS: CEROVITE ADV FORMULA TAB PO SCH (09:44)
[2017-11-24] MEDS: ACETAMINOPHEN 325 MG TAB PO PRN (13:51)
[2017-11-24 15:30] VITALS: BP 107/66; PULSE 76; TEMP 36.7; O2SAT 93
--- NOTE | 2017-11-24 20:09 | Progress Note ---
Medicine Progress Note Date & Time of Visit: Nov 24, 2017 at 20:04. Subjective Pt was seen and examined Lying in bed with no distress Pt said that she has been having a dry cough Denies any chest pain, palpitation and SOB Objective Last 8 Hrs Date Time Temp Pulse Resp B/P (MAP) Pulse Ox O2 Delivery O2 Flow Rate FiO2 11/24/17 16:00 Room Air 11/24/17 15:30 36.7 76 20 107/66 (80) 93 Physical Exam: General- No acute distress Head- atraumatic Eyes- PERRL, EOMI ENT- oropharynx clear Neck- supple, no JVD Lungs- clear to auscultation Heart- regular rhythm Abdomen- normal bowel sounds Extremities- no calf tenderness Neuro- alert, oriented x 3; PERRL, EOMI Skin- warm & dry Laboratory Results: Last 24 Hours Test 11/23/17 20:46 11/24/17 06:03 11/24/17 07:45 11/24/17 11:09 Bedside Glucose 104 mg/dl 95 mg/dl 126 mg/dl White Blood Count 2.97 K/uL Red Blood Count 3.39 M/uL Hemoglobin 10.0 g/dL Hematocrit 31.8 % Mean Corpuscular Volume 93.8 fL Mean Corpuscular Hemoglobin 29.5 pg Mean Corpuscular Hemoglobin Concent 31.4 g/dl RDW Standard Deviation 54.6 fL RDW Coefficient of Variation 16.0 % Platelet Count 98 K/uL Mean Platelet Volume 12.0 fL Potassium Level 3.6 mmol/L Creatinine 0.62 mg/dl Est Creatinine Clear Calc Drug Dose 111.3 ml/min Estimated GFR () 112.0 Estimated GFR (Non- 96.6 Test 11/24/17 16:03 Bedside Glucose 88 mg/dl Assessment & Plan 62-year-old female with cerebral palsy ambulatory dysfunction at baseline presents with worsening lightheadedness, recent hematuria, and VRE UTI. Lightheadedness Might be related to medications such as gabapentin/[place] vs UTI? CT head showed No significant change compared to the prior study. No acute intracranial abnormality. Clinically improved Fall precaution unable to do orthostatic due to unsteadiness (chronic) Resolved VRE UTI UA positive for leukocytes, cultures pending ID consulted Recommended to continue dapto and adding Aztreonam Urine grew more than 3 organisms (Mostly contaminated) repeat urine cx no growth Case discussed with ID to complete 7 days course of Dapto and Aztreonam Discussed with pt to arrange for out pt infusion for dapto and aztreonam would change to ertapenem Pt said that she rather stay in the hospital until Monday to complete the 7 days course. 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 Phoned to NICHOLAS RAY on 11/19/17 at 0736 by Krystyna Lozano. [facility] RESULTS WERE ALSO CALLED TO [facility] INFECTION CONTROL ANSWERING MACHINE ON 11/19/17 BY [facility]. 1. ENTEROCOCCUS FAECIUM VRE Target Route Dose RX AB Cost M.I.C. IQ ------ ----- ------ -- ------ -------- - ------ AMPICILLIN R >8 GENT SYNERGY R >500 VANCOMYCIN R >16 PENICILLIN R >8 TETRACYCLINE R >8 CIPROFLOXACIN R >2 LEVOFLOXACIN R >4 DAPTOMYCIN S 4 NITROFURANTOIN S <=32 RIFAMPIN R >2 STREP SYNERGY R >1000 Streptomycin Synergy Screen R Gentamicin Synergy Screen R S = SENSITIVE I = INTERMEDIATE R = RESISTANT Systolic ejection murmur Hx of MRSA bacteremia in July 2017. ECHO showed * The study was technically limited. * Acoustic windows are poor and not adequate for evaluation of cardiac valves. * The aortic valve is not well visualized, but there appears to be focal thickening one of the aortic valve cusps. Cough CXR showed any infiltrate Starting on Tessalon Morbid obesity Diet and and counseling on weight loss Type 2 diabetes Hba1c 6.9 insulin sliding scale with carb coverage and Lantus as inpatient. DVT prophylaxis-Lovenox Full code Disposition will discharge once complete abx course on Monday Current Inpatient Medications: Current Inpatient Medications Medications (Trade) Dose Ordered Sig/Betsy Route Start Time Stop Time Status Last Admin Dose Admin Acetaminophen (Tylenol Tab) 650 mg Q4H PRN PO 11/21/17 02:00 12/21/17 01:59 11/24/17 13:51 650 MG Ondansetron HCl (Zofran Inj) 4 mg Q6H PRN IV 11/21/17 02:00 12/21/17 01:59 Polyethylene (Miralax Powder Packet) 17 gm DAILY PRN PO 11/21/17 02:00 12/21/17 01:59 Daptomycin (Consult) 1 ea UD PRN N/A 11/21/17 02:41 12/21/17 02:40 Daptomycin 500 mg/ Syringe 10 ml @ 5 mls/min Q24H IV 11/22/17 01:00 11/30/17 01:01 11/23/17 23:48 5 MLS/MIN Albuterol (Ventolin Hfa Inhaler) 2 puffs QID INH 11/21/17 09:00 12/21/17 08:59 11/24/17 18:05 2 PUFFS Aspirin (Ecotrin Tab) 81 mg QAM PO 11/21/17 09:00 12/21/17 08:59 11/24/17 09:43 81 MG Atenolol (Tenormin Tab) 25 mg HS PO 11/21/17 21:00 12/21/17 20:59 11/23/17 20:39 25 MG Atorvastatin Calcium (Lipitor Tab) 40 mg HS PO 11/21/17 21:00 12/21/17 20:59 11/23/17 20:39 40 MG Cyclobenzaprine HCl (Flexeril Tab) 10 mg HS PRN PO 11/21/17 04:15 12/21/17 04:14 Escitalopram Oxalate (Lexapro Tab) 15 mg DAILY PO 11/21/17 09:00 12/21/17 08:59 11/24/17 09:42 15 MG Fluticasone Propionate (Flonase Nasal [place]) 2 sprays DAILY MARIO 11/21/17 09:00 12/21/17 08:59 11/24/17 09:43 2 SPRAYS Gabapentin (Neurontin Tab) 600 mg HS PO 11/21/17 21:00 12/21/17 20:59 11/23/17 20:40 600 MG Gabapentin (Neurontin Cap) 300 mg DAILY@0900,1400 PO 11/21/17 09:00 12/21/17 08:59 11/24/17 13:54 300 MG Acetaminophen/ Hydrocodone Bitart ([place] 10/325 Tab) 1 tab BID PRN PO 11/21/17 04:15 12/05/17 04:14 Albuterol/ Ipratropium (Duoneb) 3 ml QID PRN INH 11/21/17 04:15 12/21/17 04:14 Levothyroxine Sodium (Synthroid Tab) 88 mcg DAILYBB PO 11/22/17 06:30 12/22/17 06:29 11/24/17 05:31 88 MCG Levothyroxine Sodium (Synthroid Tab) 100 mcg DAILYBB PO 11/21/17 06:30 12/21/17 06:29 11/24/17 05:31 100 MCG Multivitamins/ Minerals (Multivitamin W/ Minerals Tab) 1 tab QAM PO 11/21/17 09:00 12/21/17 08:59 11/24/17 09:44 1 TAB Insulin Glargine (Lantus Solostar Pen) 11 units Q12 SC 11/21/17 09:00 12/21/17 08:59 11/24/17 09:33 11 UNITS Insulin Aspart (novoLOG ASPART) SLIDING SCALE If C... ACHS SC 11/21/17 06:30 12/21/17 06:29 11/24/17 13:45 3 UNITS Glucose (Glucose 40% Gel) 15-30 GRAMS 15 GRAMS... UD PRN PO 11/21/17 04:15 12/21/17 04:14 Glucose (Glucose Chew Tab) 4-8 Tablets 4 Tabl... UD PRN PO 11/21/17 04:15 12/21/17 04:14 Dextrose (Dextrose 50% 50ML Syringe) 25-50ML OF 50% DW IV FOR... UD PRN IV 11/21/17 04:15 12/21/17 04:14 Glucagon (Glucagon Inj) 1 mg UD PRN SQ 11/21/17 04:15 12/21/17 04:14 Enoxaparin Sodium (Lovenox Inj) 40 mg QAM SQ 11/21/17 09:00 12/21/17 08:59 11/24/17 09:43 40 MG Aztreonam 2000 mg/ Dextrose 110 ml @ 100 mls/hr Q8H IV 11/21/17 13:00 12/01/17 12:59 11/24/17 13:50 100 MLS/HR
[2017-11-24] MEDS: BENZONATATE 100MG CAP PO PRN (21:09)
[2017-11-24] MEDS: ATORVASTATIN 40 MG TAB PO SCH (21:11)
[2017-11-24 21:12] VITALS: BP 125/75; PULSE 79
[2017-11-24] MEDS: GABAPENTIN 600 MG TAB PO SCH (21:12)
[2017-11-25 00:27] VITALS: BP 135/84; PULSE 69; TEMP 36.9; O2SAT 94
[2017-11-25] MEDS: DAPTOmycin IV 500 MG in SYRINGE 0 ML IV SCH (01:07)
[2017-11-25] MEDS: AZTREONAM IV 2,000 MG in DEXTROSE 5% 100ML 100 ML IV SCH ×3 (05:20→21:33)
[2017-11-25] MEDS: LEVOTHYROXINE 100 MCG TAB PO SCH (06:16)
[2017-11-25] MEDS: LEVOTHYROXINE 88 MCG TAB PO SCH (06:16)
[2017-11-25 07:30] VITALS: BP 136/70; PULSE 72; TEMP 37.2; O2SAT 91
[2017-11-25] MEDS: INSULIN ASPART 100 UNITS/ML 3 ML PEN SC SCH ×4 (09:47→21:44)
[2017-11-25] MEDS: INSULIN GLARGINE SOLOSTAR 100 UNITS/ML 3 ML PEN SC SCH ×2 (09:48→21:44)
[2017-11-25] MEDS: GABAPENTIN 300 MG CAP PO SCH ×2 (10:06→13:08)
[2017-11-25] MEDS: ACETAMINOPHEN 325 MG TAB PO PRN (10:06)
[2017-11-25] MEDS: CEROVITE ADV FORMULA TAB PO SCH (10:07)
[2017-11-25] MEDS: ESCITALOPRAM OXALATE 10 MG TAB PO SCH (10:07)
[2017-11-25] MEDS: ALBUTEROL HFA 8 GM INHALER INH SCH ×4 (10:07→20:16)
[2017-11-25] MEDS: ASPIRIN 81 MG ECTAB PO SCH (10:07)
[2017-11-25] MEDS: FLUTICASONE PROPIONATE NA SPR 16 GM BTL NAE SCH (10:07)
[2017-11-25] MEDS: ENOXAPARIN 40 MG/0.4 ML SYR SQ SCH (10:08)
[2017-11-25] MEDS: BENZONATATE 100MG CAP PO PRN (13:13)
[2017-11-25 15:28] VITALS: BP 120/71; PULSE 78; TEMP 37; O2SAT 93
[2017-11-25] MEDS: ALBUT/IPRATROP 3MG/0.5MG NEB 3 ML VIAL INH PRN (16:01)
[2017-11-25 16:02] VITALS: PULSE 75; O2SAT 93
--- NOTE | 2017-11-25 17:13 | Progress Note ---
Medicine Progress Note Date & Time of Visit: Nov 25, 2017 at 17:08. Subjective Pt was seen and examined Lying in bed with no distress with TV Pt said that cough is not getting better Denies any chest pain, palpitation and SOB Objective Last 8 Hrs Date Time Temp Pulse Resp B/P (MAP) Pulse Ox O2 Delivery O2 Flow Rate FiO2 11/25/17 16:02 75 20 93 Room Air 11/25/17 16:00 Room Air 11/25/17 15:28 37.0 78 18 120/71 (87) 93 Room Air Physical Exam: General- No acute distress Head- atraumatic Eyes- PERRL, EOMI ENT- oropharynx clear Neck- supple, no JVD Lungs- mild wheezing Heart- regular rhythm Abdomen- normal bowel sounds Extremities- no calf tenderness Neuro- alert, oriented x 3; PERRL, EOMI Skin- warm & dry Laboratory Results: Last 24 Hours Test 11/24/17 19:59 11/25/17 07:17 11/25/17 11:22 Bedside Glucose 114 mg/dl 96 mg/dl 117 mg/dl Assessment & Plan 62-year-old female with cerebral palsy ambulatory dysfunction at baseline presents with worsening lightheadedness, recent hematuria, and VRE UTI. Lightheadedness Might be related to medications such as gabapentin/[place] vs UTI? CT head showed No significant change compared to the prior study. No acute intracranial abnormality. Clinically improved Fall precaution unable to do orthostatic due to unsteadiness (chronic) Resolved VRE UTI UA positive for leukocytes, cultures pending ID consulted Recommended to continue dapto and adding Aztreonam Urine grew more than 3 organisms (Mostly contaminated) repeat urine cx no growth Case discussed with ID to complete 7 days course of Dapto and Aztreonam Discussed with pt to arrange for out pt infusion for dapto and aztreonam would change to ertapenem Pt said that she rather stay in the hospital until Monday to complete the 7 days course. 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 Phoned to NICHOLAS RAY on 11/19/17 at 0736 by Krystyna Lozano. Results were verbalized back to [facility]. RESULTS WERE ALSO CALLED TO [facility] INFECTION CONTROL ANSWERING MACHINE ON 11/19/17 BY [facility]. 1. ENTEROCOCCUS FAECIUM VRE Target Route Dose RX AB Cost M.I.C. IQ ------ ----- ------ -- ------ -------- - ------ AMPICILLIN R >8 GENT SYNERGY R >500 VANCOMYCIN R >16 PENICILLIN R >8 TETRACYCLINE R >8 CIPROFLOXACIN R >2 LEVOFLOXACIN R >4 DAPTOMYCIN S 4 NITROFURANTOIN S <=32 RIFAMPIN R >2 STREP SYNERGY R >1000 Streptomycin Synergy Screen R Gentamicin Synergy Screen R S = SENSITIVE I = INTERMEDIATE R = RESISTANT Systolic ejection murmur Hx of MRSA bacteremia in July 2017. ECHO showed * The study was technically limited. * Acoustic windows are poor and not adequate for evaluation of cardiac valves. * The aortic valve is not well visualized, but there appears to be focal thickening one of the aortic valve cusps. Chronic Cough CXR showed any infiltrate continue Tessalon Will give prednisone 20mg Respiratory treatment Morbid obesity Diet and and counseling on weight loss Type 2 diabetes Hba1c 6.9 insulin sliding scale with carb coverage and Lantus as inpatient. DVT prophylaxis-Lovenox Full code Disposition will discharge once complete abx course on Monday Current Inpatient Medications: Current Inpatient Medications Medications (Trade) Dose Ordered Sig/Betsy Route Start Time Stop Time Status Last Admin Dose Admin Acetaminophen (Tylenol Tab) 650 mg Q4H PRN PO 11/21/17 02:00 12/21/17 01:59 11/25/17 10:06 650 MG Ondansetron HCl (Zofran Inj) 4 mg Q6H PRN IV 11/21/17 02:00 12/21/17 01:59 Polyethylene (Miralax Powder Packet) 17 gm DAILY PRN PO 11/21/17 02:00 12/21/17 01:59 Daptomycin (Consult) 1 ea UD PRN N/A 11/21/17 02:41 12/21/17 02:40 Daptomycin 500 mg/ Syringe 10 ml @ 5 mls/min Q24H IV 11/22/17 01:00 11/30/17 01:01 11/25/17 01:07 5 MLS/MIN Albuterol (Ventolin Hfa Inhaler) 2 puffs QID INH 11/21/17 09:00 12/21/17 08:59 11/25/17 13:08 2 PUFFS Aspirin (Ecotrin Tab) 81 mg QAM PO 11/21/17 09:00 12/21/17 08:59 11/25/17 10:07 81 MG Atenolol (Tenormin Tab) 25 mg HS PO 11/21/17 21:00 12/21/17 20:59 11/24/17 21:13 25 MG Atorvastatin Calcium (Lipitor Tab) 40 mg HS PO 11/21/17 21:00 12/21/17 20:59 11/24/17 21:11 40 MG Cyclobenzaprine HCl (Flexeril Tab) 10 mg HS PRN PO 11/21/17 04:15 12/21/17 04:14 Escitalopram Oxalate (Lexapro Tab) 15 mg DAILY PO 11/21/17 09:00 12/21/17 08:59 11/25/17 10:07 15 MG Fluticasone Propionate (Flonase Nasal [place]) 2 sprays DAILY MARIO 11/21/17 09:00 12/21/17 08:59 11/25/17 10:07 2 SPRAYS Gabapentin (Neurontin Tab) 600 mg HS PO 11/21/17 21:00 12/21/17 20:59 11/24/17 21:12 600 MG Gabapentin (Neurontin Cap) 300 mg DAILY@0900,1400 PO 11/21/17 09:00 12/21/17 08:59 11/25/17 13:08 300 MG Acetaminophen/ Hydrocodone Bitart ([place] 10/325 Tab) 1 tab BID PRN PO 11/21/17 04:15 12/05/17 04:14 Albuterol/ Ipratropium (Duoneb) 3 ml QID PRN INH 11/21/17 04:15 12/21/17 04:14 11/25/17 16:01 3 ML Levothyroxine Sodium (Synthroid Tab) 88 mcg DAILYBB PO 11/22/17 06:30 12/22/17 06:29 11/25/17 06:16 88 MCG Levothyroxine Sodium (Synthroid Tab) 100 mcg DAILYBB PO 11/21/17 06:30 12/21/17 06:29 11/25/17 06:16 100 MCG Multivitamins/ Minerals (Multivitamin W/ Minerals Tab) 1 tab QAM PO 11/21/17 09:00 12/21/17 08:59 11/25/17 10:07 1 TAB Insulin Glargine (Lantus Solostar Pen) 11 units Q12 SC 11/21/17 09:00 12/21/17 08:59 11/25/17 09:48 11 UNITS Insulin Aspart (novoLOG ASPART) SLIDING SCALE If C... ACHS SC 11/21/17 06:30 12/21/17 06:29 11/25/17 13:11 4 UNITS Glucose (Glucose 40% Gel) 15-30 GRAMS 15 GRAMS... UD PRN PO 11/21/17 04:15 12/21/17 04:14 Glucose (Glucose Chew Tab) 4-8 Tablets 4 Tabl... UD PRN PO 11/21/17 04:15 12/21/17 04:14 Dextrose (Dextrose 50% 50ML Syringe) 25-50ML OF 50% DW IV FOR... UD PRN IV 11/21/17 04:15 12/21/17 04:14 Glucagon (Glucagon Inj) 1 mg UD PRN SQ 11/21/17 04:15 12/21/17 04:14 Enoxaparin Sodium (Lovenox Inj) 40 mg QAM SQ 11/21/17 09:00 12/21/17 08:59 11/25/17 10:08 40 MG Aztreonam 2000 mg/ Dextrose 110 ml @ 100 mls/hr Q8H IV 11/21/17 13:00 12/01/17 12:59 11/25/17 13:11 100 MLS/HR Benzonatate (Tessalon Perles Cap) 100 mg TID PRN PO 11/24/17 20:15 12/24/17 20:14 11/25/17 13:13 100 MG
[2017-11-25] MEDS ORDERED: GUAIFENESIN 200 MG TAB PO ONE (17:20)
[2017-11-25] MEDS: ATORVASTATIN 40 MG TAB PO SCH (21:34)
[2017-11-25] MEDS: GABAPENTIN 600 MG TAB PO SCH (21:35)
[2017-11-25] MEDS: GUAIFENESIN 200 MG TAB PO SCH (21:35)
[2017-11-25 21:36] VITALS: BP 125/72; PULSE 78
[2017-11-25 22:49] VITALS: BP 106/63; PULSE 71; TEMP 37; O2SAT 93
[2017-11-26] MEDS: DAPTOmycin IV 500 MG in SYRINGE 0 ML IV SCH ×2 (01:10→16:28)
[2017-11-26] MEDS: AZTREONAM IV 2,000 MG in DEXTROSE 5% 100ML 100 ML IV SCH ×2 (04:46→12:39)
[2017-11-26] MEDS: LEVOTHYROXINE 100 MCG TAB PO SCH (06:05)
[2017-11-26] MEDS: LEVOTHYROXINE 88 MCG TAB PO SCH (06:05)
[2017-11-26] MEDS: GUAIFENESIN 200 MG TAB PO SCH ×2 (06:05→12:38)
[2017-11-26 07:34] VITALS: BP 108/75; PULSE 69; TEMP 37.1; O2SAT 94
[2017-11-26] MEDS: ALBUTEROL HFA 8 GM INHALER INH SCH ×2 (08:05→12:39)
[2017-11-26] MEDS: ESCITALOPRAM OXALATE 10 MG TAB PO SCH (08:05)
[2017-11-26] MEDS: GABAPENTIN 300 MG CAP PO SCH ×2 (08:06→12:38)
[2017-11-26] MEDS: BENZONATATE 100MG CAP PO PRN (08:06)
[2017-11-26] MEDS: ASPIRIN 81 MG ECTAB PO SCH (08:06)
[2017-11-26] MEDS: CEROVITE ADV FORMULA TAB PO SCH (08:06)
[2017-11-26] MEDS: FLUTICASONE PROPIONATE NA SPR 16 GM BTL NAE SCH (08:07)
[2017-11-26] MEDS: ENOXAPARIN 40 MG/0.4 ML SYR SQ SCH (08:08)
[2017-11-26] MEDS: INSULIN ASPART 100 UNITS/ML 3 ML PEN SC SCH ×2 (09:29→12:55)
[2017-11-26] MEDS: INSULIN GLARGINE SOLOSTAR 100 UNITS/ML 3 ML PEN SC SCH (09:29)
[2017-11-26] MEDS: ALBUT/IPRATROP 3MG/0.5MG NEB 3 ML VIAL INH PRN (12:14)
[2017-11-26 12:15] VITALS: PULSE 69; O2SAT 94
--- NOTE | 2017-11-26 16:30 | Progress Note ---
Medicine Progress Note Date & Time of Visit: Nov 26, 2017 at 16:22. Subjective Pt was seen and examined Lying in bed with no distress Pt said that she feels much better She said that she is starting to cough phlegm up Pt said that she would like to go home today after completing antibiotic Refused to go to inpatient rehab Denies any chest pain, palpitation, dizziness and SOB Objective Last 8 Hrs Date Time Temp Pulse Resp B/P (MAP) Pulse Ox O2 Delivery O2 Flow Rate FiO2 11/26/17 12:15 69 20 94 Room Air 11/26/17 08:30 Room Air Physical Exam: General- No acute distress Head- atraumatic Eyes- PERRL, EOMI ENT- oropharynx clear Neck- supple, no JVD Lungs- coarse BS Heart- regular rhythm Abdomen- normal bowel sounds Extremities- no calf tenderness Neuro- alert, oriented x 3; PERRL, EOMI Skin- warm & dry Laboratory Results: Last 24 Hours Test 11/25/17 16:24 11/25/17 20:06 11/26/17 07:13 11/26/17 11:13 Bedside Glucose 112 mg/dl 186 mg/dl 132 mg/dl 93 mg/dl Assessment & Plan 62-year-old female with cerebral palsy ambulatory dysfunction at baseline presents with worsening lightheadedness, recent hematuria, and VRE UTI. Lightheadedness Might be related to medications such as gabapentin/[place] vs UTI? CT head showed No significant change compared to the prior study. No acute intracranial abnormality. Clinically improved Fall precaution unable to do orthostatic due to unsteadiness (chronic) Resolved VRE UTI UA positive for leukocytes, cultures pending ID consulted Recommended to continue dapto and adding Aztreonam Urine grew more than 3 organisms (Mostly contaminated) repeat urine cx no growth Case discussed with ID to complete 7 days course of Dapto and Aztreonam Discussed with pt to arrange for out pt infusion for dapto and aztreonam would change to ertapenem Pt said that she rather stay in the hospital until Monday to complete the 7 days course. 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 Phoned to NICHOLAS GARLANDKARLENE on 11/19/17 at 0736 by Krystyna Lozano. Results were verbalized back to [facility]. RESULTS WERE ALSO CALLED TO [facility] INFECTION CONTROL ANSWERING MACHINE ON 11/19/17 BY [facility]. 1. ENTEROCOCCUS FAECIUM VRE Target Route Dose RX AB Cost M.I.C. IQ ------ ----- ------ -- ------ -------- - ------ AMPICILLIN R >8 GENT SYNERGY R >500 VANCOMYCIN R >16 PENICILLIN R >8 TETRACYCLINE R >8 CIPROFLOXACIN R >2 LEVOFLOXACIN R >4 DAPTOMYCIN S 4 NITROFURANTOIN S <=32 RIFAMPIN R >2 STREP SYNERGY R >1000 Streptomycin Synergy Screen R Gentamicin Synergy Screen R S = SENSITIVE I = INTERMEDIATE R = RESISTANT Systolic ejection murmur Hx of MRSA bacteremia in July 2017. ECHO showed * The study was technically limited. * Acoustic windows are poor and not adequate for evaluation of cardiac valves. * The aortic valve is not well visualized, but there appears to be focal thickening one of the aortic valve cusps. Chronic Cough Bronchitis CXR showed any infiltrate continue Tessalon Adding guaifenesin yesterday that seems to help her coughing phlegm out. Continue prednisone 20mg Continue respiratory treatment Morbid obesity Diet and and counseling on weight loss Type 2 diabetes Hba1c 6.9 insulin sliding scale with carb coverage and Lantus as inpatient. DVT prophylaxis-Lovenox Full code Disposition Will discharge home today Consultants: ID Current Inpatient Medications: Current Inpatient Medications Medications (Trade) Dose Ordered Sig/Betsy Route Start Time Stop Time Status Last Admin Dose Admin Acetaminophen (Tylenol Tab) 650 mg Q4H PRN PO 11/21/17 02:00 12/21/17 01:59 11/25/17 10:06 650 MG Ondansetron HCl (Zofran Inj) 4 mg Q6H PRN IV 11/21/17 02:00 12/21/17 01:59 Polyethylene (Miralax Powder Packet) 17 gm DAILY PRN PO 11/21/17 02:00 12/21/17 01:59 Daptomycin (Consult) 1 ea UD PRN N/A 11/21/17 02:41 12/21/17 02:40 Daptomycin 500 mg/ Syringe 10 ml @ 5 mls/min Q24H IV 11/22/17 01:00 11/30/17 01:01 11/26/17 01:10 5 MLS/MIN Albuterol (Ventolin Hfa Inhaler) 2 puffs QID INH 11/21/17 09:00 12/21/17 08:59 11/26/17 12:39 2 PUFFS Aspirin (Ecotrin Tab) 81 mg QAM PO 11/21/17 09:00 12/21/17 08:59 11/26/17 08:06 81 MG Atenolol (Tenormin Tab) 25 mg HS PO 11/21/17 21:00 12/21/17 20:59 11/25/17 21:37 25 MG Atorvastatin Calcium (Lipitor Tab) 40 mg HS PO 11/21/17 21:00 12/21/17 20:59 11/25/17 21:34 40 MG Cyclobenzaprine HCl (Flexeril Tab) 10 mg HS PRN PO 11/21/17 04:15 12/21/17 04:14 Escitalopram Oxalate (Lexapro Tab) 15 mg DAILY PO 11/21/17 09:00 12/21/17 08:59 11/26/17 08:05 15 MG Fluticasone Propionate (Flonase Nasal [place]) 2 sprays DAILY MARIO 11/21/17 09:00 12/21/17 08:59 11/26/17 08:07 2 SPRAYS Gabapentin (Neurontin Tab) 600 mg HS PO 11/21/17 21:00 12/21/17 20:59 11/25/17 21:35 600 MG Gabapentin (Neurontin Cap) 300 mg DAILY@0900,1400 PO 11/21/17 09:00 12/21/17 08:59 11/26/17 12:38 300 MG Acetaminophen/ Hydrocodone Bitart ([place] 10/325 Tab) 1 tab BID PRN PO 11/21/17 04:15 12/05/17 04:14 Albuterol/ Ipratropium (Duoneb) 3 ml QID PRN INH 11/21/17 04:15 12/21/17 04:14 11/26/17 12:14 3 ML Levothyroxine Sodium (Synthroid Tab) 88 mcg DAILYBB PO 11/22/17 06:30 12/22/17 06:29 11/26/17 06:05 88 MCG Levothyroxine Sodium (Synthroid Tab) 100 mcg DAILYBB PO 11/21/17 06:30 12/21/17 06:29 11/26/17 06:05 100 MCG Multivitamins/ Minerals (Multivitamin W/ Minerals Tab) 1 tab QAM PO 11/21/17 09:00 12/21/17 08:59 11/26/17 08:06 1 TAB Insulin Glargine (Lantus Solostar Pen) 11 units Q12 SC 11/21/17 09:00 12/21/17 08:59 11/26/17 09:29 11 UNITS Insulin Aspart (novoLOG ASPART) SLIDING SCALE If C... ACHS SC 11/21/17 06:30 12/21/17 06:29 11/26/17 12:55 2 UNITS Glucose (Glucose 40% Gel) 15-30 GRAMS 15 GRAMS... UD PRN PO 11/21/17 04:15 12/21/17 04:14 Glucose (Glucose Chew Tab) 4-8 Tablets 4 Tabl... UD PRN PO 11/21/17 04:15 12/21/17 04:14 Dextrose (Dextrose 50% 50ML Syringe) 25-50ML OF 50% DW IV FOR... UD PRN IV 11/21/17 04:15 12/21/17 04:14 Glucagon (Glucagon Inj) 1 mg UD PRN SQ 11/21/17 04:15 12/21/17 04:14 Enoxaparin Sodium (Lovenox Inj) 40 mg QAM SQ 11/21/17 09:00 12/21/17 08:59 11/26/17 08:08 40 MG Aztreonam 2000 mg/ Dextrose 110 ml @ 100 mls/hr Q8H IV 11/21/17 13:00 12/01/17 12:59 11/26/17 12:39 100 MLS/HR Benzonatate (Tessalon Perles Cap) 100 mg TID PRN PO 11/24/17 20:15 12/24/17 20:14 11/26/17 08:06 100 MG Guaifenesin (Organidin Nr Tab) 200 mg Q8 PO 11/25/17 22:00 12/25/17 21:59 11/26/17 12:38 200 MG Prednisone (PredniSONE TAB) 20 mg DAILY PO 11/27/17 08:00 12/27/17 07:59
[2017-11-26 16:36] VITALS: BP 108/75; PULSE 69; TEMP 37.1; O2SAT 94
[2017-11-26] MEDS ORDERED: ORG200 PO ×2 (16:36→16:52)
[2017-11-26] MEDS ORDERED: PRD20 PO (16:36)
--- NOTE | 2017-11-26 16:41 | Discharge Instructions ---
Discharge Instructions Date of Service Nov 26, 2017. Admission Reason for Admission: Acute Cystitis Discharge Discharge Diagnosis / Problem: VRE UTI, Cough/Bronchitis, Diabetes Discharge Goals Goal(s): Decrease discomfort, Improve function, Improve disease control Activity Recommendations Activity Limitations: resume your previous activity (as tolerated) . Instructions / Follow-Up Instructions / Follow-Up Follow up with your primary care provider Dr. Matute on 11/28 @ 2:05 PM Continue physical therapy and occupational therapy Monitor blood sugar Complete course of prednisone Fall precaution Current Hospital Diet Patient's current hospital diet: AHA Diet (Heart Healthy), Diabetes Type 2 Diet Discharge Diet Recommended Diet: AHA Diet (Heart Healthy), Diabetes Type 2 Diet Pending Studies Studies pending at discharge: no Laboratory Results Hemoglobin A1c Test 11/21/17 06:27 Range/Units Estimated Average Glucose 151 mg/dl Hemoglobin A1c 6.9 H 4.5-5.6 % Medical Emergencies . Who to Call and When: Medical Emergencies: If at any time you feel your situation is an emergency, please call 911 immediately. . Non-Emergent Contact Non-Emergency issues call your: Primary Care Provider Call Non-Emergent contact if: you have a fever, you have any medication questions . . "Provider Documentation" section prepared by Cornelius Gray. .
--- NOTE | 2017-11-29 01:04 | Discharge Summary ---
Discharge Summary Date of Service Nov 29, 2017. Discharge Summary Admission Date: Nov 21, 2017 at 00:14 Discharge Date: Nov 26, 2017 Discharge Disposition: Home with services Principal Diagnosis: VRE UTI Secondary Diagnoses/Problems: Lightheadedness Systolic ejection murmur Systolic ejection murmur Chronic Cough Bronchitis Morbid obesity Type 2 diabetes Procedures: HEAD CT NONCONTRAST CT DOSE: 751.47 mGy.cm HISTORY: vertigo TECHNIQUE: Multiaxial CT images of the head were performed without the use of intravenous contrast. Automated exposure control was utilized for this study. A dose lowering technique was utilized adhering to the principles of ALARA. Comparison: Head CT 12/13/2015. Findings: The paranasal sinuses and mastoid air cells are clear. The calvarium and skull base are intact. The ventricles and sulci are within normal limits. There is no mass, hematoma, midline shift, or acute infarct. No change in the patchy periventricular white matter hypodensity. Motion artifact. Impression: Motion artifact. No significant change compared to the prior study. No acute intracranial abnormality. Electronically signed by: Cecil Matthew M.D. 11/20/2017 8:54 PM Dictated Date/Time: 11/20/2017 8:51 PM CHEST ONE VIEW PORTABLE HISTORY: fevers COMPARISON: Chest 11/01/2017. FINDINGS: Low lung volumes. No pneumothorax. The heart remains mildly enlarged. Mild interstitial prominence persists. No new focal lung consolidations. IMPRESSION: No change compared to the prior study. Cardiomegaly and mild interstitial thickening persists. This may be chronic. No new focal lung consolidations. Electronically signed by: Cecil Matthew M.D. 11/20/2017 7:30 PM Dictated Date/Time: 11/20/2017 7:29 PM ECHO Interpretation Summary * Name: RYLAND SHAW Study Date: 11/21/2017 02:28 PM BP: 101/61 mmHg * Patient Location: [facility]\\S\\[id number]\\[id number]\\[id number] HR: 113 * : 1955 (M/d/yyyy) Gender: Female Height: 59 in * Age: 62 yrs Ethnicity: [place] Weight: 262 lb * Ordering Physician: Renetta Michelle * Referring Physician: Self, Referred * Performed By: Dominique Jara RCS * * Reason For Study: MURMUR / H/O BACTEREMIA / LIGHTHEADED * BSA: 2.1 m2 * -- Conclusions -- * The study was technically limited. * Acoustic windows are poor and not adequate for evaluation of cardiac valves. * The aortic valve is not well visualized, but there appears to be focal thickening one of the aortic valve cusps. * Refer to below for additional details. Procedure Details * A complete two-dimensional transthoracic echocardiogram was performed (2D, M- mode, Doppler and color flow Doppler). * The study was technically difficult. Left Ventricle * The left ventricle is normal in size. * There is mild concentric left ventricular hypertrophy. * Ejection Fraction = 60-65%. * Left ventricular wall motion is grossly normal on technically limited assessment. Right Ventricle * The right ventricular systolic function is normal as assessed by tricuspid annular plane systolic excursion (TAPSE) (normal >1.5 cm). Mitral Valve * The mitral valve is not well visualized. * There is no mitral valve stenosis. * There is trace mitral regurgitation. Tricuspid Valve * The tricuspid valve is not well visualized. * Significant tricuspid regurgitation is absent. Aortic Valve * The aortic valve is not well visualized, but there appears to be focal thickening one of the aortic valve cusps. * No hemodynamically significant valvular aortic stenosis. * There is no significant aortic regurgitation. Left Ventricular Diastolic Function * Grade I diastolic dysfunction, (abnormal relaxation pattern). Consultations: ID Medication Reconciliation New Medications: Guaifenesin (Organ-I Nr) 200 Mg Tab 200 MG PO Q8 PRN for Cough for 7 Days, #21 TAB Prednisone (Prednisone) 20 Mg Tab 20 MG PO DAILY for 5 Days, TAB Continued Medications: Albuterol Sulfate (Proventil Hfa) 108 Mcg/Act Aer 2 PUFFS INH QID Aspirin (Aspirin Ec) 81 Mg Tab 81 MG PO QAM Atenolol (Tenormin) 25 Mg Tab 25 MG PO HS, TAB Atorvastatin (Lipitor) 40 Mg Tab 40 MG PO HS Azelastine Hcl (Astelin Nasal [place]) 200 Sprays/30 Ml [place] 2 SPRAYS NA BID PRN for Nasal Congestion, BTL Cyclobenzaprine Hcl (Flexeril) 10 Mg Tab 10 MG PO HS, TAB Escitalopram Oxalate (Lexapro) 5 Mg Tab 15 MG PO DAILY Fexofenadine Hcl (Danita) 180 Mg Tab 180 MG PO QAM PRN for Allergies, TAB Fluticasone Propionate (Nasal) (Flonase Allergy Relief) 50 Mcg/Act Spr 2 SPRAYS MARIO DAILY Furosemide (Lasix) 20 Mg Tab 20 MG PO DAILY PRN for Edema, TAB Gabapentin (Neurontin) 300 Mg Cap 300 MG PO BID AT AM & MIDDAY, CAP Gabapentin (Gabapentin) 300 Mg Cap 600 MG PO HS Kakftlflwoy-Oetoogsabqu-Tiw C- (Glucosamine 1500 Complex) 1 Cap Cap 1 CAP PO TID Home O2 Therapy (Oxygen) Gas 2 LITERS NA HS, BTL WITH CPAP Hydrocodone/Acetaminophen ([place] 10/325 Tab) 1 Tab Tab 1 TAB PO BID PRN for Pain, TAB Insulin Glargine (Lantus) 100 Unit/Ml Inj 13 UNITS SC HS, VIAL Ipratropium-Albuterol (Duoneb) 3 Ml Nebu 1 TREATMENT INH QID PRN for SOB/Wheezing, INHA Levothyroxine Sodium (Levothyroxine Sodium) 88 Mcg Tab 88 MCG PO QAM TAKE WITH 100MCG TAB Levothyroxine Sodium (Levothyroxine Sodium) 100 Mcg Tab 100 MCG PO QAM TAKE WITH 88MCG TAB Metformin Hcl (Glucophage) 1,000 Mg Tab 1000 MG PO BIDM, TAB Multiple Vitamins W/ Minerals (Centrum Silver Adult 50+) 1 Tab Tab 1 TAB PO QAM Nystatin (Nystatin Cream) 90 Appln/30 Gm Cr 0 EXT BID PRN for rash, #15 GM APPLY TO AFFECTED AREA BID Discontinued Medications: Nitrofurantoin Monohyd Macrocr (Macrobid) 100 Mg Cap 100 MG PO BID, #14 CAP Admission Information HPI (per Admitting provider): 62-year-old female presents with persistent. She initially was seen in the ER on 11/17 for persistent hematuria. She had about a biopsy of her bladder with Dr. Escobar on 10/30 which revealed no malignancy. She noted a couple of days of bleeding after the biopsy which spontaneously resolved. She denied any issues including burning with urination however woke up with a diaper full of blood prior to arrival. At that point she said she felt a bit dizzy. He urinalysis and urine culture revealed presence of VRE infection. She was initially sent home on Bactrim DS. She was later called when the culture returned and asked to return to the ER. She returned on 11/09 and reported again that she felt lightheaded and dizzy since that morning. During this visit nitrofurantoin was started and 1 dose of Daptomycin was given she went home and returned again tonight with her persistent lightheadedness, denying any further bleeding. Review of systems reveals no dysuria flank, flank pain, fevers, chills. The patient reports a chronic cough which she feels has gotten worse in the last 2 weeks. Her is also coughing. She also reports body aches. She denies any sick contacts or travel history. She states that her Cline was taken out on 11/15 and she had had a catheter in since August. She reports spontaneously voiding without issue. Physical Exam (per Admitting): General Appearance: no apparent distress, + obese Head: normocephalic, atraumatic Eyes: normal inspection, sclerae normal ENT: hearing grossly normal, pharynx normal Neck: supple, trachea midline, + pertinent finding (Obese neck) Respiratory/Chest: lungs clear, normal breath sounds, no respiratory distress, no accessory muscle use Cardiovascular: regular rate, rhythm, no edema, no gallop, no JVD, + systolic murmur Abdomen/GI: normal bowel sounds, non tender, soft, + pertinent finding ( obese abdomen) Extremities/Musculoskelatal: no calf tenderness, + pertinent finding ( Decreased range of motion, obesity, no edema) 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 VRE UTI UA positive for leukocytes, cultures pending ID consulted Recommended to continue dapto and adding Aztreonam Urine grew more than 3 organisms (Mostly contaminated) repeat urine cx no growth Case discussed with ID to complete 7 days course of Dapto and Aztreonam Discussed with pt to arrange for out pt infusion for dapto and aztreonam would change to ertapenem Pt said that she rather stay in the hospital until Monday to complete the 7 days course. 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 Phoned to NICHOLAS RAY on 11/19/17 at 0736 by Krystyna Lozano. Results were verbalized back to [facility]. RESULTS WERE ALSO CALLED TO [facility] INFECTION CONTROL ANSWERING MACHINE ON 11/19/17 BY [facility]. 1. ENTEROCOCCUS FAECIUM VRE Target Route Dose RX AB Cost M.I.C. IQ ------ ----- ------ -- ------ -------- - ------ AMPICILLIN R >8 GENT SYNERGY R >500 VANCOMYCIN R >16 PENICILLIN R >8 TETRACYCLINE R >8 CIPROFLOXACIN R >2 LEVOFLOXACIN R >4 DAPTOMYCIN S 4 NITROFURANTOIN S <=32 RIFAMPIN R >2 STREP SYNERGY R >1000 Streptomycin Synergy Screen R Gentamicin Synergy Screen R S = SENSITIVE I = INTERMEDIATE R = RESISTANT Lightheadedness Might be related to medications such as gabapentin/[place] vs UTI? CT head showed No significant change compared to the prior study. No acute intracranial abnormality. Clinically improved Fall precaution unable to do orthostatic due to unsteadiness (chronic) Resolved Systolic ejection murmur Hx of MRSA bacteremia in July 2017. ECHO showed * The study was technically limited. * Acoustic windows are poor and not adequate for evaluation of cardiac valves. * The aortic valve is not well visualized, but there appears to be focal thickening one of the aortic valve cusps. Chronic Cough Bronchitis CXR showed any infiltrate continue Tessalon Adding guaifenesin yesterday that seems to help her coughing phlegm out. Continue prednisone 20mg Continue respiratory treatment Morbid obesity Diet and and counseling on weight loss Type 2 diabetes Hba1c 6.9 insulin sliding scale with carb coverage and Lantus as inpatient. DVT prophylaxis-Lovenox Full code Disposition Will discharge home today Total time spent on discharge = 35 minutes This includes examination of the patient, discharge planning, medication reconciliation, and communication with other providers. Discharge Instructions Discharge Instructions Date of Service Nov 26, 2017. Admission Reason for Admission: Acute Cystitis Discharge Discharge Diagnosis / Problem: VRE UTI, Cough/Bronchitis, Diabetes Discharge Goals Goal(s): Decrease discomfort, Improve function, Improve disease control Activity Recommendations Activity Limitations: resume your previous activity (as tolerated) . Instructions / Follow-Up Instructions / Follow-Up Follow up with your primary care provider Dr. Matute on 11/28 @ 2:05 PM Continue physical therapy and occupational therapy Monitor blood sugar Complete course of prednisone Fall precaution Current Hospital Diet Patient's current hospital diet: AHA Diet (Heart Healthy), Diabetes Type 2 Diet Discharge Diet Recommended Diet: AHA Diet (Heart Healthy), Diabetes Type 2 Diet Pending Studies Studies pending at discharge: no Laboratory Results Hemoglobin A1c Test 11/21/17 06:27 Range/Units Estimated Average Glucose 151 mg/dl Hemoglobin A1c 6.9 H 4.5-5.6 % Medical Emergencies . Who to Call and When: Medical Emergencies: If at any time you feel your situation is an emergency, please call 911 immediately. . Non-Emergent Contact Non-Emergency issues call your: Primary Care Provider Call Non-Emergent contact if: you have a fever, you have any medication questions . . "Provider Documentation" section prepared by Cornelius Gray. . Additional Copies To Nancy Matute M.D. (MEDICAL)
== END 2017-11-26 17:25 | disposition home health service (06) | DRG 690 ==
LOC: C.EDB 17:40 → C.MED 11-21 00:14 → EDBEDREQ 11-21 00:39 → ENRESERV 11-21 02:22 → EDBEDREQ 11-22 12:40 → CANBEDREQ 11-22 13:36 → ENRESERV 11-23 17:29 → C.MS4W 11-23 18:29
PROVIDERS: ADMIT Hospitalist; ATTEND Internal Medicine
DX: N39.0 Urinary tract infection, site not specified (principal); Z68.43 Body mass index [BMI] 50.0-59.9, adult; B95.2 Enterococcus as the cause of diseases classified elsewhere; Z16.21 Resistance to vancomycin; R42 Dizziness and giddiness; T44.7X5A Adverse effect of beta-adrenoreceptor antagonists, initial encounter; T43.8X5A Adverse effect of other psychotropic drugs, initial encounter; T40.2X5A Adverse effect of other opioids, initial encounter; R05 Cough; R01.1 Cardiac murmur, unspecified; E11.9 Type 2 diabetes mellitus without complications; E66.01 Morbid (severe) obesity due to excess calories; E03.9 Hypothyroidism, unspecified; G80.9 Cerebral palsy, unspecified; R26.9 Unspecified abnormalities of gait and mobility; Z86.14 Personal history of Methicillin resistant Staphylococcus aureus infection; Z79.4 Long term (current) use of insulin; Z79.82 Long term (current) use of aspirin; Z79.899 Other long term (current) drug therapy; Z88.0 Allergy status to penicillin; Z82.49 Family history of ischemic heart disease and other diseases of the circulatory system

== ENCOUNTER 2017-12-21 15:53 | Emergency (ER) | payer BC, OTHER ==
[~2017-12-21] VITALS: Ht 149.9 cm; Wt 117.0 kg
[~2017-12-21 15:53] MED LIST changes: -KFL/250 PO; -NITR-5 PO; +ORG200 PO; +PRD20 PO; -SULF800T23 PO
[2017-12-21 15:59] VITALS: Ht 149.9 cm; Wt 117.0 kg
[2017-12-21] MEDS ORDERED: SODIUM CHLORIDE 0.9% 1000ML 1,000 ML IV STA ×2 (16:07→20:09)
--- NOTE | 2017-12-21 16:13 | EMERGENCY ROOM VISIT NOTE ---
History Report prepared by Tarah: Jarett Lou Under the Supervision of: Dr. Sammy James M.D. First contact with patient: 16:04 Chief Complaint: HYPERGLYCEMIA Stated Complaint: HIGH SUGAR LEVEL History of Present Illness The patient is a 62 year old female with a history of diabetes who presents to the Emergency Room with complaints of persistent hyperglycemia that was detected earlier today. She states that her sugars have gone up to 562 today, and she called her doctor who told the patient to come here. The patient says that she was recently started on Prednisone for a cough that has been going on since last year. She adds that she was put on a Z-pack. The patient notes that her cough intermittently has blood lined in the mucous. She denies any fevers or pain with urination. She adds that she takes insulin for her diabetes. She wears oxygen at night for sleep apnea. The patient notes no history of heart problems or CHF. Source of History: patient, spouse/significant other Onset: Earlier today Position: other (global) Symptom Intensity: up to 562 Quality: other (hyperglycemia) Timing: other (persistent) Associated Symptoms: + cough (for a year), No fevers, No urinary symptoms Review of Systems See HPI for pertinent positives and negatives. A total of ten systems were reviewed and were otherwise negative. Past Medical & Surgical Medical Problems: (1) Acute cystitis (2) Asthma (3) Bilateral lower extremity edema (4) Cerebral palsy (5) Chronic pain (6) Complicated UTI (urinary tract infection) (7) DM type 2 (diabetes mellitus, type 2) (8) Dyslipidemia (9) Fibromyalgia (10) VIDA (generalized anxiety disorder) (11) History of migraine (12) Hypothyroidism (13) Major depressive disorder, recurrent, moderate (14) NG (nonalcoholic steatohepatitis) (15) Obesity, morbid (more than 100 lbs over ideal weight or BMI > 40) (16) Obstructive sleep apnea (17) Osteoarthritis (18) Venous insufficiency Surgical Problems: (1) H/O Achilles tendon repair (2) H/O section (3) H/O wisdom tooth extraction (4) History of D&C Family History FH: CAD (coronary artery disease) MOTHER ([place] in her 50s) Social History Smoking Status: Never Smoker Alcohol Use: none Drug Use: none Marital Status: Housing Status: lives with family Occupation Status: disabled Current/Historical Medications Scheduled Albuterol Sulfate (Proventil Hfa), 2 PUFFS INH QID Aspirin (Aspirin Ec), 81 MG PO QAM Atenolol (Tenormin), 25 MG PO HS Atorvastatin (Lipitor), 40 MG PO HS Azithromycin (Zithromax Z-Marcus), 1 PKT PO UD Cyclobenzaprine Hcl (Flexeril), 10 MG PO HS Escitalopram Oxalate (Lexapro), 15 MG PO DAILY Fluticasone Propionate (Nasal) (Flonase Allergy Relief), 2 SPRAYS MARIO DAILY Gabapentin (Neurontin), 300 MG PO BID AT AM & MIDDAY Gabapentin (Gabapentin), 600 MG PO HS Sitszipzvfa-Zzumqigoezk-Rbf C- (Glucosamine 1500 Complex), 1 CAP PO TID Home O2 Therapy (Oxygen), 2 LITERS NA HS Insulin Glargine (Lantus), 13 UNITS SC HS Levofloxacin (Levaquin), 1 TAB PO DAILY Levothyroxine Sodium (Levothyroxine Sodium), 88 MCG PO QAM Levothyroxine Sodium (Levothyroxine Sodium), 100 MCG PO QAM Metformin Hcl (Glucophage), 1,000 MG PO BIDM Multiple Vitamins W/ Minerals (Centrum Silver Adult 50+), 1 TAB PO QAM Prednisone (Prednisone), 20 MG PO DAILY Prednisone (Prednisone), 1 DOSE PO UD Scheduled PRN Azelastine Hcl (Astelin Nasal [place]), 2 SPRAYS NA BID PRN for Nasal Congestion Fexofenadine Hcl (Danita), 180 MG PO QAM PRN for Allergies Furosemide (Lasix), 20 MG PO DAILY PRN for Edema Guaifenesin (Organ-I Nr), 200 MG PO Q8 PRN for Cough Hydrocodone/Acetaminophen (Firth 10/325 Tab), 1 TAB PO BID PRN for Pain Ipratropium-Albuterol (Duoneb), 1 TREATMENT INH QID PRN for SOB/Wheezing Nystatin (Nystatin Cream), 0 EXT BID PRN for rash Allergies Coded Allergies: Penicillins (Verified Allergy, Intermediate, HIVES, 12/21/17) Physical Exam Vital Signs Date Time Temp Pulse Resp B/P (MAP) Pulse Ox O2 Delivery O2 Flow Rate FiO2 12/21/17 21:53 37.3 12/21/17 20:27 100 20 144/92 94 Room Air 12/21/17 18:36 104 20 114/82 91 Room Air 12/21/17 15:59 37.4 111 22 142/77 93 Room Air Physical Exam Physical Exam GENERAL: She is oriented to person, place, and time. She appears well- developed and well-nourished. She does not appear distressed. ____ HENT: Exam performed. Head: Normocephalic and atraumatic. Right Ear: External ear normal. No mastoid tenderness. Left Ear: External ear normal. No mastoid tenderness. Mouth/Throat: The oropharynx is clear and moist. No trismus in the jaw. No dental abscesses or uvula swelling. No oropharyngeal exudate or tonsillar abscesses. ____ EYES: Conjunctivae and EOM are normal. Pupils are equal, round, and reactive to light. Right eye exhibits no discharge. Left eye exhibits no discharge. No scleral icterus. ____ NECK: Normal range of motion. Neck supple. No JVD present. No spinous process tenderness present. No carotid bruit present. No rigidity. No tracheal deviation and normal range of motion present. No Brudzinski's sign and no Kernig 's sign noted. ____ CV: Normal rate, regular rhythm, normal heart sounds and intact distal pulses. There is no peripheral edema. Palpable radial pulses bue. ____ PULM/CHEST: Effort normal and breath sounds normal. No respiratory distress. No stridor. She has no wheezes. She has no rales. Chest Wall: She exhibits no tenderness. ____ ABD: The abdomen is obese. Bowel sounds are normal. She has no distension. No mass is present. There is no tenderness. There is no rebound, no guarding, no Holguin's sign and no tenderness at McBurney's point. Rovsig negative MUSC/SKEL: Normal range of motion. There is no peripheral edema, tenderness or deformity. LYMPH: No cervical adenopathy. ____ NEURO: She is alert and oriented to person, place, and time. She has normal strength. No cranial nerve deficit or sensory deficit. Coordination and gait normal. GCS eye subscore is 4. GCS verbal subscore is 5. GCS motor subscore is 6. Cerebellar tests wnl. ____ SKIN: Skin is warm and dry. She is not diaphoretic. ____ PSYCH: She has a normal mood and affect. She behavior is normal. Judgment and thought content normal. ____ Medical Decision & Procedures ER Provider Diagnostic Interpretation: X-ray: Per my interpretation, radiologist review. CHEST 2 VIEWS ROUTINE CLINICAL HISTORY: Cough. COMPARISON STUDY: Chest radiograph November 20, 2017. FINDINGS: No pneumothorax or pleural effusion is noted. There is no evidence for pulmonary edema. Mild cardiomegaly is noted. There is no consolidation to suggest pneumonia. IMPRESSION: No acute cardiopulmonary findings. Electronically signed by: Lucas Lambert M.D. 12/21/2017 7:05 PM Dictated Date/Time: 12/21/2017 7:04 PM Laboratory Results 12/21/17 17:18 Red Blood Count 3.89, Mean Corpuscular Volume 93.3, Mean Corpuscular Hemoglobin 30.6, Mean Corpuscular Hemoglobin Concent 32.8, Mean Platelet Volume 12.7, Neutrophils (%) (Auto) 69.7, Lymphocytes (%) (Auto) 20.1, Monocytes (%) (Auto) 8.5, Eosinophils (%) (Auto) 1.2, Basophils (%) (Auto) 0.2, Neutrophils # (Auto) 4.10, Lymphocytes # (Auto) 1.18, Monocytes # (Auto) 0.50, Eosinophils # (Auto) 0.07, Basophils # (Auto) 0.01 12/21/17 17:18 Test 12/21/17 17:18 12/21/17 17:31 12/21/17 17:33 12/21/17 20:09 White Blood Count 5.88 K/uL (4.8-10.8) Red Blood Count 3.89 M/uL (4.2-5.4) Hemoglobin 11.9 g/dL (12.0-16.0) Hematocrit 36.3 % (37-47) Mean Corpuscular Volume 93.3 fL (80-100) Mean Corpuscular Hemoglobin 30.6 pg (25-34) Mean Corpuscular Hemoglobin Concent 32.8 g/dl (32-36) Platelet Count 103 K/uL (130-400) Mean Platelet Volume 12.7 fL (7.4-10.4) Neutrophils (%) (Auto) 69.7 % Lymphocytes (%) (Auto) 20.1 % Monocytes (%) (Auto) 8.5 % Eosinophils (%) (Auto) 1.2 % Basophils (%) (Auto) 0.2 % Neutrophils # (Auto) 4.10 K/uL (1.4-6.5) Lymphocytes # (Auto) 1.18 K/uL (1.2-3.4) Monocytes # (Auto) 0.50 K/uL (0.11-0.59) Eosinophils # (Auto) 0.07 K/uL (0-0.5) Basophils # (Auto) 0.01 K/uL (0-0.2) RDW Standard Deviation 54.9 fL (36.4-46.3) RDW Coefficient of Variation 16.2 % (11.5-14.5) Immature Granulocyte % (Auto) 0.3 % Immature Granulocyte # (Auto) 0.02 K/uL (0.00-0.02) Platelet Estimate DECREASED Anion Gap 6.0 mmol/L (3-11) Est Creatinine Clear Calc Drug Dose 72.0 ml/min Estimated GFR () 76.3 Estimated GFR (Non- 65.9 BUN/Creatinine Ratio 12.4 (10-20) Calcium Level 9.6 mg/dl (8.5-10.1) Influenza Type A Antigen Neg for Influ A (NEG) Influenza Type B Antigen Neg for Influ B (NEG) Urine Color YELLOW Urine Appearance TURBID (CLEAR) Urine pH 6.5 (4.5-7.5) Urine Specific Gonzales 1.036 (1.000-1.030) Urine Protein NEG (NEG) Urine Glucose (UA) 3+ (NEG) Urine Ketones TRACE (NEG) Urine Occult Blood TRACE (NEG) Urine Nitrite NEG (NEG) Urine Bilirubin NEG (NEG) Urine Urobilinogen NEG (NEG) Urine Leukocyte Esterase NEG (NEG) Urine WBC (Auto) 1-5 /hpf (0-5) Urine RBC (Auto) 0-4 /hpf (0-4) Urine Hyaline Casts (Auto) 1-5 /lpf (0-5) Urine Epithelial Cells (Auto) >30 /lpf (0-5) Urine Bacteria (Auto) 1+ (NEG) Urine Yeast (Auto) (NONE PRSENT) Bedside Lactic Acid Venous 3.29 mmol/L (0.90-1.70) Test 12/21/17 20:22 Lactic Acid Level 3.1 mmol/L (0.4-2.0) Laboratory results reviewed by me Medications Administered Medications (Trade) Dose Ordered Sig/Betsy Route Start Time Stop Time Status Last Admin Dose Admin Sodium Chloride 1,000 ml @ 999 mls/hr Q1H1M STAT IV 12/21/17 16:07 12/21/17 17:07 DC 12/21/17 17:39 999 MLS/HR Sodium Chloride 1,000 ml @ 125 mls/hr Q8H STAT IV 12/21/17 20:09 12/22/17 04:08 12/21/17 20:18 125 MLS/HR Levofloxacin (Levaquin Tab) 750 mg STK-MED ONCE .ROUTE 12/21/17 21:51 12/21/17 21:52 DC 12/21/17 21:54 750 MG ECG Per My Interpretation Indication: other (hyperglycemia) Rate (beats per minute): 101 Rhythm: sinus tachycardia Findings: 1st degree AV block, other (MD increased at 206, QRS, QTC intervals within normal limits. No ST elevation or depression) ED Course 1605: The patient was evaluated in room C12B. A complete history and physical exam was performed. EMR was reviewed - the patient had an echo done on November 2015 and she had an ejection fraction of 65%. 1607: NSS 1000 ml @ 999 mls/hr IV. 2009: NSS 1000 ml @ 125 mls/hr IV. 2146: Vital signs stable. Labs within normal limits with the exception of a lactic acid of 3.3. Initial chest x-ray read by radiology showed no acute infiltrate. I reviewed the x-ray myself, and I thought there was a possibility of a developing infiltrate in the left lower lobe. I discussed this with radiology now, radiologist stated it could be a developing infiltrate however it is difficult to assess giving her increased breast tissue and body mass size. They stated if it clinically correlates, it is possible it could be a developing infiltrate. Given the patient's elevated lactic acid, she was hydrated with 1.25 L of fluids. Repeat lactic acid was still elevated at 3.1. Given this and the patient's chest x-ray, the diagnosis for bronchitis/ pneumonia was considered. Patient's CURB-65 is negative. However given the elevated lactic acid, I discussed the case with the [facility] hospitalist. He pointed out that the patient's lactic acid has been chronically elevated when the EMR is further reviewed, and that she is also on metformin which could be causing the lactic acidemia. Patient states she does not wish to stay in the hospital and prefers to be discharged. Given the patient is afebrile, her repeat lung exam was clear to auscultation bilaterally no wheezes rales or rhonchi, her curb 65 is negative, and she is on metformin chronically which would explain the elevated lactic acid, the patient will be discharged with close follow-up. Feeder Loader will help arrange for the patient to be seen by her PCP tomorrow. The patient will also have her antibiotic changed from azithromycin to Levaquin. First dose of Levaquin given in the emergency department. Patient to continue prednisone as prescribed by her PCP. Patient is in agreement with this plan.DISCHARGE - Plan of care discussed with patient and questions answered. The patient was given both verbal and printed discharge instructions. The patient verbalized understanding and ability to comply. The patient is to seek outpatient follow up as noted in the discharge instructions. The patient verbalized understanding and ability to comply. The patient is discharged in stable condition. The patient was instructed to return for worsening symptoms. Medical Decision Vital signs stable. Labs within normal limits with the exception of a lactic acid of 3.3. Initial chest x-ray read by radiology showed no acute infiltrate. I reviewed the x-ray myself, and I thought there was a possibility of a developing infiltrate in the left lower lobe. I discussed this with radiology now, radiologist stated it could be a developing infiltrate however it is difficult to assess giving her increased breast tissue and body mass size. They stated if it clinically correlates, it is possible it could be a developing infiltrate. Given the patient's elevated lactic acid, she was hydrated with 1.25 L of fluids. Repeat lactic acid was still elevated at 3.1. Given this and the patient's chest x-ray, the diagnosis for bronchitis/ pneumonia was considered. Patient's CURB-65 is negative. However given the elevated lactic acid, I discussed the case with the [facility] hospitalist. He pointed out that the patient's lactic acid has been chronically elevated when the EMR is further reviewed, and that she is also on metformin which could be causing the lactic acidemia. Patient states she does not wish to stay in the hospital and prefers to be discharged. Given the patient is afebrile, her repeat lung exam was clear to auscultation bilaterally no wheezes rales or rhonchi, her curb 65 is negative, and she is on metformin chronically which would explain the elevated lactic acid, the patient will be discharged with close follow-up. Feeder Loader will help arrange for the patient to be seen by her PCP tomorrow. The patient will also have her antibiotic changed from azithromycin to Levaquin. First dose of Levaquin given in the emergency department. Patient to continue prednisone as prescribed by her PCP. Patient is in agreement with this plan.DISCHARGE - Plan of care discussed with patient and questions answered. The patient was given both verbal and printed discharge instructions. The patient verbalized understanding and ability to comply. The patient is to seek outpatient follow up as noted in the discharge instructions. The patient verbalized understanding and ability to comply. The patient is discharged in stable condition. The patient was instructed to return for worsening symptoms. Medication Reconcilliation Current Medication List: was personally reviewed by me Blood Pressure Screening Patient's blood pressure: Normal blood pressure Impression Primary Impression: Bronchitis Additional Impression: Lactic acidemia Scribe Attestation The scribe's documentation has been prepared under my direction and personally reviewed by me in its entirety. I confirm that the note above accurately reflects all work, treatment, procedures, and medical decision making performed by me. The chart was completed utilizing [employer] Speech voice recognition software. Grammatical errors, random word insertions, pronoun errors, and incomplete sentences are an occasional consequence of this system due to software limitations, ambient noise, and hardware issues. Any formal questions or concerns about the content, text, or information contained within the body of this dictation should be directly addressed to the physician for clarification. Departure Information Prescriptions Levofloxacin (LEVAQUIN) 750 Mg Tab 1 TAB PO DAILY for 4 Days, #4 TAB Prov: Sammy James M.D. 12/21/17 Referrals No Doctor, Assigned (PCP) Patient Instructions My [facility] Problem Qualifiers
[2017-12-21] MEDS ORDERED: PRD/1 PO (17:14)
[2017-12-21] MEDS ORDERED: AZITTAB PO (17:14)
[2017-12-21 17:51] LABS: CALCIUM 9.6 mg/dl (8.5-10.1); CREATININE 0.93 mg/dl (0.60-1.20); POTASSIUM 3.9 mmol/L (3.5-5.1)
[2017-12-21 17:55] LABS: BASO % 0.2 %; BASO ABS # 0.01 K/uL (0-0.2); EOS % 1.2 %; EOS ABS # 0.07 K/uL (0-0.5); HEMATOCRIT 36.3 % (37-47); HEMOGLOBIN 11.9 g/dL (12.0-16.0); IG# 0.02 K/uL (0.00-0.02); LYMPH % 20.1 %; LYMPH ABS # 1.18 K/uL (1.2-3.4); MEAN CELL VOLUME 93.3 fL (80-100); MEAN CORPUSCULAR HEMOGLOBIN 30.6 pg (25-34); MEAN CORPUSCULAR HGB CONC 32.8 g/dl (32-36); MEAN PLATELET VOLUME 12.7 fL (7.4-10.4); MONO % 8.5 %; NEUT % 69.7 %; PLATELET COUNT 103 K/uL (130-400); RED CELL DISTRIBUTION WIDTH CV 16.2 % (11.5-14.5); RED CELL DISTRIBUTION WIDTH SD 54.9 fL (36.4-46.3); WHITE BLOOD COUNT 5.88 K/uL (4.8-10.8)
[2017-12-21 18:03] LABS: INFLUENZA B ANTIGEN Neg for Influ B (NEG)
--- NOTE | 2017-12-21 19:06 | DIAGNOSTIC IMAGING REPORT ---
CHEST 2 VIEWS ROUTINE CLINICAL HISTORY: Cough. COMPARISON STUDY: Chest radiograph November 20, 2017. FINDINGS: No pneumothorax or pleural effusion is noted. There is no evidence for pulmonary edema. Mild cardiomegaly is noted. There is no consolidation to suggest pneumonia. IMPRESSION: No acute cardiopulmonary findings. Electronically signed by: Lucas Lambert M.D. 12/21/2017 7:05 PM Dictated Date/Time: 12/21/2017 7:04 PM
[2017-12-21] MEDS ORDERED: LEVOFLOXACIN 750 MG TAB PO ONE (21:45)
[2017-12-21] MEDS ORDERED: LEVOFLOXACIN 250 MG TAB ONE (21:51)
[2017-12-21 21:53] VITALS: TEMP 37.3
[2017-12-21] MEDS ORDERED: LEVO750T23 PO (21:59)
[2017-12-21 22:27] VITALS: BP 144/76; PULSE 82; O2SAT 98
== END 2017-12-21 22:28 | disposition home or self-care (01) ==
LOC: C.EDB 15:54 → C.EDC 22:28
DX: J40 Bronchitis, not specified as acute or chronic (principal); E87.2 Acidosis; E11.65 Type 2 diabetes mellitus with hyperglycemia; M19.90 Unspecified osteoarthritis, unspecified site; J45.909 Unspecified asthma, uncomplicated; E03.9 Hypothyroidism, unspecified; Z79.4 Long term (current) use of insulin; Z99.81 Dependence on supplemental oxygen; Z79.899 Other long term (current) drug therapy; Z79.82 Long term (current) use of aspirin; Z79.84 Long term (current) use of oral hypoglycemic drugs; Z88.0 Allergy status to penicillin; Z82.49 Family history of ischemic heart disease and other diseases of the circulatory system

== ENCOUNTER → 2018-01-09 | Outpatient (CLI) | payer BC, OTHER ==
[~2018-01-09] MED LIST changes: +DULA1INJ SC; +ERGO500037 PO; +POTA10CA28 PO; -PRD20 PO; +PRLSR20 PO; +TRAZ50TA35 PO
--- NOTE | 2018-01-09 10:21 | DIAGNOSTIC IMAGING REPORT ---
RENAL ULTRASOUND CLINICAL HISTORY: Incomplete bladder emptying. Incontinence. COMPARISON STUDY: Renal ultrasound July 03, [address] of the abdomen and pelvis September 14, 2017. TECHNIQUE: Sonography of the kidneys and the urinary bladder was performed. FINDINGS: Exam is compromised by suboptimal penetration. The right kidney measures 10.6 cm in maximal dimension and the left measures 11.9 cm. There is no hydronephrosis. There is mild renal cortical thinning. No renal calculi or masses are identified by sonography. Both ureteral jets were identified. Note was made of a 7 mm echogenic focus within the left posterior aspect of the bladder. There is no associated shadowing. IMPRESSION: 1. No hydronephrosis. 2. 7 mm echogenic focus within the left posterior aspect of the bladder. This favors a small bladder calculus. A nonobstructing ureterovesical junction calculus is considered less likely. Electronically signed by: Lucas Lambert M.D. 01/09/2018 10:20 AM Dictated Date/Time: 01/09/2018 10:17 AM
== END | disposition home or self-care (01) ==
LOC: C.ULTR 09:34
PROVIDERS: ATTEND Urology
DX: R32 Unspecified urinary incontinence (principal); R33.9 Retention of urine, unspecified; R93.41 Abnormal radiologic findings on diagnostic imaging of renal pelvis, ureter, or bladder

== ENCOUNTER → 2018-01-11 | Day surgery (SDC) | payer BC, OTHER ==
[2018-01-04 13:48] VITALS: BMI 51.0
[~2018-01-11] VITALS: Ht 149.9 cm; Wt 115.0 kg
[~2018-01-11] MED LIST changes: +ALBUT/IPRATROP 3MG/0.5MG NEB 3 ML VIAL INH STA; +LIDOCAINE HCL 2% 2 ML VIAL (20MG/ML) ONE; +PROPOFOL IV EMULSION 10 MG/ML 20 ML VIAL ONE
[2018-01-11 08:43] VITALS: Ht 149.9 cm; Wt 115.0 kg
--- NOTE | 2018-01-11 08:51 | Endo History and Physical ---
History & Physical Date of Service: January 11, 2018. Chief Complaint: Cirrhosis Referring Physician: Girish History of Present Illness Patient with a history of cirrhosis from fatty infiltration of the liver presenting for surveillance upper endoscopy today. She denies having difficulty with swallowing pain with swallowing fevers chills or sweats. Past Medical History Diabetes, Arthritis, Asthma, Thyroid Disease Past Surgical History Hx Cardiac Surgery: No Hx Internal Defibrillator: No Hx Pacemaker: No Hx Abdominal Surgery: Yes (C Section) Hx of Implantable Prosthesis: No Hx Post-Op Nausea and Vomiting: No Hx Cancer Surgery: No Hx Thoracic Surgery: No Hx Orthopedic: Yes (L hip as a child due to cerebral palsy, Achilles tendon repair BILAT) Hx Urinary Tract Surgery: No Social History Smoking Status: Never Smoker Hx Substance Use: Yes (HYDROCODONE USE BID FOR PAIN) Hx Alcohol Use: No Allergies Coded Allergies: Penicillins (Verified Allergy, Intermediate, HIVES, 01/11/18) Current Medications Reported Home Medications Medications Dose Route/Sig Max Daily Dose Days Date Category Dose Instructions Vitamin D 32437 Unit (Ergocalciferol) 50,000 Unit Cap 1 Cap PO EVERY OTHER WEEK 28 01/04/18 Reported Trazodone (Trazodone HCl) 50 Mg Tab 50 Mg PO HS 01/04/18 Reported Micro-K Ext Rel (Potassium Chloride) 10 Meq Capcr 10 Meq PO DAILY 01/04/18 Reported Prilosec (Omeprazole) 20 Mg Capcr 20 Mg PO DAILY 01/04/18 Reported Trulicity (Dulaglutide) 0.75 Mg/0.5 Ml Inj 1 Syr SC WK 01/04/18 Reported Organ-I Nr (Guaifenesin) 200 Mg Tab 200 Mg PO Q8 PRN 7 11/26/17 Rx Proventil Hfa (Albuterol Sulfate) 108 Mcg/Act Aer 2 Puffs INH QID 11/19/17 Reported Flonase Allergy Relief (Fluticasone Propionate (Nasal)) 50 Mcg/Act Spr 2 Sprays MARIO DAILY 11/19/17 Reported Lantus (Insulin Glargine) 100 Unit/Ml Inj 13 Units SC HS 11/19/17 Reported Glucosamine 1500 Complex (Ynuwzjzryri-Awycuftqebo-Hsa C-) 1 Cap Cap 1 Cap PO TID 11/01/17 Reported Lexapro (Escitalopram Oxalate) 5 Mg Tab 15 Mg PO DAILY 11/01/17 Reported Oxygen Gas 2 Liters NA HS 10/18/17 Reported WITH CPAP Strat[place] 10/325 Tab (Acetaminophen/Hydrocodone Bitart) 1 Tab Tab 1 Tab PO BID PRN 10/18/17 Reported Gabapentin 300 Mg Cap 600 Mg PO HS 07/12/17 Reported Duoneb (Ipratropium-Albuterol) 3 Ml Nebu 1 Treatment INH QID PRN 07/12/17 Reported Tenormin (Atenolol) 25 Mg Tab 25 Mg PO HS 06/30/17 Reported Levothyroxine Sodium 100 Mcg Tab 100 Mcg PO QAM 06/30/17 Reported TAKE WITH 88MCG TAB Levothyroxine Sodium 88 Mcg Tab 88 Mcg PO QAM 06/30/17 Reported TAKE WITH 100MCG TAB Centrum Silver Adult 50+ (Multiple Vitamins W/ Minerals) 1 Tab Tab 1 Tab PO QAM 08/12/16 Reported Astelin Nasal Pierce (Azelastine Hcl) 200 Sprays/30 Ml Pierce 2 Sprays NA BID PRN 08/12/16 Reported Nystatin Cream (Nystatin) 90 Appln/30 Gm Cr 0 EXT BID PRN 08/01/15 Reported APPLY TO AFFECTED AREA BID Aspirin Ec (Aspirin) 81 Mg Tab 81 Mg PO QAM 01/05/15 Reported Lipitor (Atorvastatin Calcium) 40 Mg Tab 40 Mg PO HS 01/05/15 Reported Danita (Fexofenadine Hcl) 180 Mg Tab 180 Mg PO QAM PRN 01/05/15 Reported Glucophage (Metformin Hcl) 1,000 Mg Tab 1,000 Mg PO BIDM 01/05/15 Reported Flexeril (Cyclobenzaprine Hcl) 10 Mg Tab 10 Mg PO HS 01/05/15 Reported Lasix (Furosemide) 20 Mg Tab 20 Mg PO DAILY PRN 01/05/15 Reported Neurontin (Gabapentin) 300 Mg Cap 300 Mg PO BID AT AM & MIDDAY 04/28/12 Reported Vital Signs Weight (Kilograms): 115.00 Height (Feet): 4 Height (Inches): 11 Physical Exam General Appearance: no apparent distress Respiratory/Chest: Auscultation: deminished air movement Cardiovascular: Heart Auscultation: RRR Abdomen: Inspection & Palpation: soft Assessment and Plan We are planning to do an upper endoscopy to screen for esophageal varices. We have discussed the risks to include bleeding, infection, perforation, pain, aspiration and cardiovascular complications.
[2018-01-11 09:02] VITALS: PULSE 88; O2SAT 92
[2018-01-11 09:06] VITALS: TEMP 36.4
--- NOTE | 2018-01-11 09:41 | GI REPORT ---
Patient Name: Shaina Bustos Procedure Date: 01/11/2018 9:26 AM Date of : 1955 Admit Type: Outpatient Age: 62 Gender: Female Attending MD: Janis Hatch DO Procedure: Upper GI endoscopy Providers: Janis Hatch DO Referring MD: Norris Pineda Indications: Follow-up of esophageal varices Medicines: Monitored Anesthesia Care Complications: No immediate complications. Estimated blood loss: Minimal. Estimated Blood Loss: Estimated blood loss: none. Procedure: Pre-Anesthesia Assessment: - Prior to the procedure, a History and Physical was performed, and patient medications, allergies and sensitivities were reviewed. The patient's tolerance of previous anesthesia was reviewed. - The risks and benefits of the procedure and the sedation options and risks were discussed with the patient. All questions were answered and informed consent was obtained. - Patient identification and proposed procedure were verified prior to the procedure by the physician, the nurse and the yarn mercerizer operator helper. The procedure was verified in the procedure room. - Pre-procedure physical examination revealed no contraindications to sedation. - ASA Grade Assessment: III - A patient with severe systemic disease. - After reviewing the risks and benefits, the patient was deemed in satisfactory condition to undergo the procedure. - The anesthesia plan was to use monitored anesthesia care (MAC). - Immediately prior to administration of medications, the patient was re-assessed for adequacy to receive sedatives. - The heart rate, respiratory rate, oxygen saturations, blood pressure, adequacy of pulmonary ventilation, and response to care were monitored throughout the procedure. - The physical status of the patient was re-assessed after the procedure. After obtaining informed consent, the endoscope was passed under direct vision. Throughout the procedure, the patient's blood pressure, pulse, and oxygen saturations were monitored continuously. The scope was introduced through the mouth, with the intention of advancing to the duodenum. The scope was advanced to the gastric body before the procedure was aborted. Medications were given. The upper GI endoscopy was accomplished without difficulty. The patient tolerated the procedure well. Findings: Two columns of grade I varices were found in the lower third of the esophagus,. They were 3 mm in largest diameter. No stigmata of recent bleeding were evident and no red fredo signs were present. Estimated blood loss: none. The Z-line was regular and was found 37 cm from the incisors. A large amount of food (residue) was found in the entire examined stomach. Impression: - Non-bleeding grade I esophageal varices. - Z-line regular, 37 cm from the incisors. - A large amount of food (residue) in the stomach. This precluded visualization of the stomach and duodenum, howevr, we were able to evaluate the esophagus today (goal of the procedure) - No specimens collected. Recommendation: - Discharge patient to home (ambulatory). - Advance diet as tolerated today. - Repeat upper endoscopy in 1 year for surveillance. - Patient with need a liquid diet for 48 hours prior to her next EGD. Janis Hatch D.O. Janis Hatch, 01/11/2018 9:40:39 AM This report has been signed electronically. Note Initiated On: 01/11/2018 9:26 AM Number of Addenda: 0 I attest to the content of the Intraoperative Record and orders documented therein, exceptions below {[id number]}
--- NOTE | 2018-01-11 10:10 | Anesthesiology Progress Note ---
Anesthesia Post Op Note Date & Time January 11, 2018 at 10:09 Vital Signs Pain Intensity: 0 Vital Signs Past 12 Hours Date Time Temp Pulse Resp B/P (MAP) Pulse Ox O2 Delivery O2 Flow Rate FiO2 01/11/18 09:57 89 20 137/70 (92) 93 Room Air 01/11/18 09:49 86 20 126/87 (100) 92 Room Air 01/11/18 09:44 86 20 145/105 (118) 93 Room Air 01/11/18 09:06 36.4 90 20 120/98 (105) 93 Room Air 01/11/18 09:02 88 18 92 Room Air Notes Mental Status: alert / awake / arousable, participated in evaluation Pt Amnestic to Procedure: Yes Nausea / Vomiting: adequately controlled Pain: adequately controlled Airway Patency, RR, SpO2: stable & adequate BP & HR: stable & adequate Hydration State: stable & adequate Anesthetic Complications: no major complications apparent The patient will take her insulin when she goes home.
[2018-01-11 10:12] VITALS: PULSE 84
[2018-01-11 10:33] VITALS: BP 138/87; O2SAT 92
--- NOTE | 2018-01-11 10:38 | Discharge Instructions ---
Endoscopy Patient Instructions Date / Procedure(s) Performed January 11, 2018. EGD Allergy Information Coded Allergies: Penicillins (Verified Allergy, Intermediate, HIVES, 01/11/18) Discharge Date / Findings January 11, 2018. Grade 1 esophageal varices Medication Instructions Stopped Medication(s): SHE STOPPED ASA A WEEK AGO. DIDNT TAKE ANYTHING TODAY Reported Home Medications Medications Dose Route/Sig Max Daily Dose Days Date Category Dose Instructions Vitamin D 01950 Unit (Ergocalciferol) 50,000 Unit Cap 1 Cap PO EVERY OTHER WEEK 28 01/04/18 Reported Trazodone (Trazodone HCl) 50 Mg Tab 50 Mg PO HS 01/04/18 Reported Micro-K Ext Rel (Potassium Chloride) 10 Meq Capcr 10 Meq PO DAILY 01/04/18 Reported Prilosec (Omeprazole) 20 Mg Capcr 20 Mg PO DAILY 01/04/18 Reported Trulicity (Dulaglutide) 0.75 Mg/0.5 Ml Inj 1 Syr SC WK 01/04/18 Reported Organ-I Nr (Guaifenesin) 200 Mg Tab 200 Mg PO Q8 PRN 7 11/26/17 Rx Proventil Hfa (Albuterol Sulfate) 108 Mcg/Act Aer 2 Puffs INH QID 11/19/17 Reported Flonase Allergy Relief (Fluticasone Propionate (Nasal)) 50 Mcg/Act Spr 2 Sprays MARIO DAILY 11/19/17 Reported Lantus (Insulin Glargine) 100 Unit/Ml Inj 13 Units SC HS 11/19/17 Reported Glucosamine 1500 Complex (Apikibspbho-Ulzmeqdgpec-Jug C-) 1 Cap Cap 1 Cap PO TID 11/01/17 Reported Lexapro (Escitalopram Oxalate) 5 Mg Tab 15 Mg PO DAILY 11/01/17 Reported Oxygen Gas 2 Liters NA HS 10/18/17 Reported WITH CPAP [place] 10/325 Tab (Acetaminophen/Hydrocodone Bitart) 1 Tab Tab 1 Tab PO BID PRN 10/18/17 Reported Gabapentin 300 Mg Cap 600 Mg PO HS 07/12/17 Reported Duoneb (Ipratropium-Albuterol) 3 Ml Nebu 1 Treatment INH QID PRN 07/12/17 Reported Tenormin (Atenolol) 25 Mg Tab 25 Mg PO HS 06/30/17 Reported Levothyroxine Sodium 100 Mcg Tab 100 Mcg PO QAM 10/20/17 Reported TAKE WITH 88MCG TAB Levothyroxine Sodium 88 Mcg Tab 88 Mcg PO QAM 06/30/17 Reported TAKE WITH 100MCG TAB Centrum Silver Adult 50+ (Multiple Vitamins W/ Minerals) 1 Tab Tab 1 Tab PO QAM 08/12/16 Reported Astelin Nasal Vesuvius (Azelastine Hcl) 200 Sprays/30 Ml Vesuvius 2 Sprays NA BID PRN 08/12/16 Reported Nystatin Cream (Nystatin) 90 Appln/30 Gm Cr 0 EXT BID PRN 08/01/15 Reported APPLY TO AFFECTED AREA BID Aspirin Ec (Aspirin) 81 Mg Tab 81 Mg PO QAM 01/05/15 Reported Lipitor (Atorvastatin Calcium) 40 Mg Tab 40 Mg PO HS 01/05/15 Reported Danita (Fexofenadine Hcl) 180 Mg Tab 180 Mg PO QAM PRN 01/05/15 Reported Glucophage (Metformin Hcl) 1,000 Mg Tab 1,000 Mg PO BIDM 01/05/15 Reported Flexeril (Cyclobenzaprine Hcl) 10 Mg Tab 10 Mg PO HS 01/05/15 Reported Lasix (Furosemide) 20 Mg Tab 20 Mg PO DAILY PRN 01/05/15 Reported Neurontin (Gabapentin) 300 Mg Cap 300 Mg PO BID AT AM & MIDDAY 04/28/12 Reported Provider Instructions Activity Restrictions - No exercising or heavy lifting for 24 hours. - Do not drink alcohol the day of the procedure. - Do not drive a car or operate machinery until the day after the procedure. - Do not make any important decisions or sign important papers in 24 hours after the procedure. Following Day: - Return to full activity which may include returning to work/school. Diet Start your diet with liquids and light foods (jello, soup, juice, toast). Then eat your usual diet if not nauseated. Treatment For Common After Affects For mild abdominal pain, bloating, or excessive gas: - Rest - Eat lightly - Lie on right side Follow-Up Information Follow-up with DR. ROBERTS and as scheduled [facility] upper endoscopy in 1 year Anesthesia Information What You Should Know You have had a procedure that required some medicine to reduce anxiety and discomfort. This treatment is called moderate sedation. After receiving the treatment, you may be sleepy, but you will be able to breathe on your own. The effects of the treatment may last for several hours. Follow these instructions along with Activity/Diet recommendations noted above: * Do NOT do anything where dizziness or clumsiness would be dangerous. * Rest quietly at home today, then you can be up and about tomorrow. * Have a responsible person stay with you the rest of today. * You may have had an I.V. today. If so, you may take the dressing off later today. Recommendations Call your doctor if: * Trouble breathing * Continuous vomiting for more than 24 hours * Temperature above 101 degrees * Severe abdominal pain or bloating * Pain not relieved by pain medicine ordered * There is increased drainage or redness from any incision * A large amount of rectal bleeding greater than 2-3 tablespoons. (If you had a polyp/s removed or have hemorrhoids, a small amount of blood - from the rectum is to be expected.) * You have any unanswered questions or concerns. IN THE EVENT OF A SERIOUS EMERGENCY, GO TO THE NEAREST EMERGENCY ROOM Your discharge instructions were prepared by provider Janis Hatch. Patient Instructions Signature Page Shaina Bustos Patient (or Guardian) Signature/Date: I have read and understand the instructions given to me by my caregivers. Caregiver/RN/Doctor Signature/Date: The above-named patient and/or guardian has received patient instructions on this date. + Original Patient Signature Page (only) stays with chart. Please make copy for patient.
== END | disposition home or self-care (01) ==
LOC: C.GI 07:56
PROVIDERS: ATTEND Internal Medicine Gastroenterology
DX: K74.60 Unspecified cirrhosis of liver (principal); I85.00 Esophageal varices without bleeding; K76.6 Portal hypertension; J45.909 Unspecified asthma, uncomplicated; G47.33 Obstructive sleep apnea (adult) (pediatric); I10 Essential (primary) hypertension; E11.9 Type 2 diabetes mellitus without complications; F41.9 Anxiety disorder, unspecified; F32.9 Major depressive disorder, single episode, unspecified; Z88.0 Allergy status to penicillin; Z79.899 Other long term (current) drug therapy; Z79.82 Long term (current) use of aspirin; M19.90 Unspecified osteoarthritis, unspecified site

== ENCOUNTER → 2018-01-19 | Outpatient (CLI) | payer BC, OTHER ==
[~2018-01-19] MED LIST changes: -ALBUT/IPRATROP 3MG/0.5MG NEB 3 ML VIAL INH STA; -LIDOCAINE HCL 2% 2 ML VIAL (20MG/ML) ONE; -PROPOFOL IV EMULSION 10 MG/ML 20 ML VIAL ONE
== END | disposition home or self-care (01) ==
LOC: C.LAB1850 10:18
PROVIDERS: ATTEND Internal Medicine Infectious Disease
DX: N39.0 Urinary tract infection, site not specified (principal)

== ENCOUNTER → 2018-04-04 | Outpatient (CLI) | payer BC, OTHER ==
[~2018-04-04] MED LIST changes: +IPRA-64 INH; -IPRASOL4 INH; +LEVO75TA5 PO; -LEVO88TA3 PO; -ORG200 PO; +OXYC7.5T65 PO
--- NOTE | 2018-04-05 07:56 | MAMMOGRAPHY REPORT ---
BILATERAL DIGITAL SCREENING MAMMOGRAM WITH CAD: 04/04/2018 CLINICAL HISTORY: Routine screening examination. TECHNIQUE: Bilateral CC and MLO 2D images were obtained. Additional attempted right CC and left MLO views were obtained due to patient motion. Current study was also evaluated with a Computer Aided De tection (CAD) system. COMPARISON: Comparison is made to exams dated: 01/18/2017 mammogram, 12/22/2015 mammogram, 10/09/2014 m ammogram, 04/02/2013 mammogram, and 03/22/2012 mammogram - [facility]. BREAST COMPOSITION: There are scattered areas of fibroglandular density in both breasts. FINDINGS: The exam is suboptimal due to patient being wheelchair-bound and inability to adequately po sition and tolerate compression for the exam, despite assistance from a second mammography technologi st. Within this limitation, no obvious new masses, calcifications, asymmetries or areas of architecture professor ural distortion are identified. Recommend routine screening mammography in 1 year. IMPRESSION: ACR BI-RADS CATEGORY 1: NEGATIVE There is no mammographic evidence of malignancy, within the limitations of the exam. A 1 year screeni ng mammogram is recommended.(04/05/2019) The patient will receive written notification of the result s. Some breast cancers are not detected with mammography. A negative mammographic report should not lisa y biopsy if a clinically suggestive mass is present. Payal Alfaro M.D. ay/:04/04/2018 13:47:33 Attending Technologist: Rajwinder Stiles RT(R)(M), [facility] Greenhouse Grower: RT Prakash(R)(M)(BD), [facility] letter sent: Normal 1/2 BI-RADS Code: ACR BI-RADS Category 1: Negative
== END | disposition home or self-care (01) ==
LOC: C.MAMM 13:13
PROVIDERS: ATTEND Family Medicine
DX: Z12.31 Encounter for screening mammogram for malignant neoplasm of breast (principal)

== ENCOUNTER 2018-04-19 14:30 | Emergency (ER) | payer BC, OTHER ==
[~2018-04-19] VITALS: Ht 149.9 cm; Wt 121.7 kg
[~2018-04-19 14:30] MED LIST changes: -ASPI81TA28 PO; -CYCL10TA6 PO; -FEXO1TAB46 PO; -FLUT0.15 NAE; -FURO-85 PO; -GABA-1219 PO; -HYDR-4383 PO; -INSDGI SC; -IPRA-64 INH; -LPT40 PO; -METF-384 PO; -MULT-845 PO; -NYSCR30 EXT
[2018-04-19 14:35] VITALS: TEMP 37
[2018-04-19] MEDS ORDERED: HYDR-4383 PO (14:46)
[2018-04-19] MEDS ORDERED: ALUMINUM/MAGNESIUM SUSP 30 ML UDC PO STA (14:52)
--- NOTE | 2018-04-19 15:04 | EMERGENCY ROOM VISIT NOTE ---
History Report prepared by Keeibstiven: Carlos Mary Under the Supervision of: Dr. Papito Telles D.O. First contact with patient: 14:41 Chief Complaint: RIB PAIN Stated Complaint: PAIN IN LEFT SIDE BY RIBS History of Present Illness The patient is a 62 year old female who presents to the Emergency Room with complaints of intermittent bilateral rib pain that began a couple of days ago. Patient describes the pain as "sharp" and states it has been worse on the left side than right today. Patient adds she had centrally located chest pain last night but it has resolved. She denies taking any medication for her pain. Patient states she has been seen in the ER for similar symptoms but states they "only found a kidney stone and a bladder infection". Patient states she takes medication for her history of hypertension, diabetes, and asthma. She denies a history of blood clots or lung/stomach problems. She denies smoking, drinking, or taking blood thinners. She denies urinary symptoms, abdominal pain, or trouble breathing. Patient is present with her . Patient states she has not seen her PCP for her symptoms. Source of History: patient Onset: Couple days ago Position: chest Quality: sharp Timing: intermittent Modifying Factors (Relieving): other (None) Associated Symptoms: + chest pain, No SOB, No abdominal pain, No urinary symptoms Review of Systems See HPI for pertinent positives & negatives. A total of 10 systems reviewed and were otherwise negative. Past Medical & Surgical Medical Problems: (1) Acute cystitis (2) Asthma (3) Bilateral lower extremity edema (4) Cerebral palsy (5) Chronic pain (6) Complicated UTI (urinary tract infection) (7) DM type 2 (diabetes mellitus, type 2) (8) Dyslipidemia (9) Fibromyalgia (10) VIDA (generalized anxiety disorder) (11) History of migraine (12) Hypothyroidism (13) Major depressive disorder, recurrent, moderate (14) NG (nonalcoholic steatohepatitis) (15) Obesity, morbid (more than 100 lbs over ideal weight or BMI > 40) (16) Obstructive sleep apnea (17) Osteoarthritis (18) Venous insufficiency Surgical Problems: (1) H/O Achilles tendon repair (2) H/O section (3) H/O wisdom tooth extraction (4) History of D&C Family History FH: CAD (coronary artery disease) MOTHER ([place] in her 50s) Social History Smoking Status: Never Smoker Alcohol Use: none Drug Use: none Marital Status: Housing Status: lives with family Occupation Status: disabled Current/Historical Medications Scheduled Ascorbic Acid (Vitamin C), 500 MG PO DAILY Aspirin (Aspirin Ec), 81 MG PO QAM Atorvastatin (Lipitor), 40 MG PO HS Cephalexin Monohydrate (Cephalexin), 250 MG PO DAILY Cyclobenzaprine Hcl (Flexeril), 10 MG PO HS Dulaglutide (Trulicity), 1.5 MG INJ WK Escitalopram Oxalate (Escitalopram Oxalate), 15 MG PO DAILY Fluticasone Propionate (Nasal) (Flonase Allergy Relief), 2 SPRAYS MARIO DAILY Gabapentin (Neurontin), 300 MG PO BID AT AM & MIDDAY Gabapentin (Gabapentin), 600 MG PO HS Insulin Glargine (Lantus), 24 UNITS SC HS Levothyroxine Sodium (Levothyroxine Sodium), 150 MCG PO DAILY Metformin Hcl (Glucophage), 1,000 MG PO BIDM Multiple Vitamins W/ Minerals (Centrum Silver Adult 50+), 1 TAB PO QAM Nadolol (Corgard), 20 MG PO DAILY Omeprazole (Prilosec), 20 MG PO DAILY Oxybutynin Chloride (Oxybutynin Chloride), 5 MG PO BID Potassium Chloride (Potassium Chloride Cr), 10 MEQ PO DAILY Tamsulosin HCl (Tamsulosin HCl), 0.4 MG PO DAILY Trazodone Hcl (Trazodone), 50 MG PO HS Scheduled PRN Fexofenadine Hcl (Danita), 180 MG PO QAM PRN for Allergies Furosemide (Lasix), 20 MG PO DAILY PRN for Edema Hydrocodone/Acetaminophen ([place] 10/325 Tab), 1 TAB PO BID PRN for Pain Ipratropium-Albuterol (Duoneb), 1 TREATMENT INH QID PRN for SOB/Wheezing Nystatin (Nystatin Cream), 0 EXT BID PRN for rash Allergies Coded Allergies: Penicillins (Verified Allergy, Intermediate, HIVES, 02/26/18) Physical Exam Vital Signs Date Time Temp Pulse Resp B/P (MAP) Pulse Ox O2 Delivery O2 Flow Rate FiO2 04/19/18 16:48 74 18 117/88 93 04/19/18 16:37 74 18 117/88 93 Room Air 04/19/18 16:00 75 04/19/18 15:32 Room Air 04/19/18 15:32 Room Air 04/19/18 14:35 37.0 77 18 148/72 93 Room Air Physical Exam GENERAL: Patient is awake, alert, and in no acute distress. Patient is resting comfortably and showing no signs of anxiety EYES: The conjunctivae are clear. The pupils are round and reactive. EARS, NOSE, MOUTH AND THROAT: The nose is without any evidence of any deformity. Mucous membranes are moist. Tongue is midline NECK: The neck is nontender and supple. RESPIRATORY: Normal respiratory effort is noted. There is no evidence of wheezing rhonchi or rales to auscultation. CARDIOVASCULAR: Regular rate and rhythm noted. There no murmurs rubs or gallops normal S1 normal S2 GASTROINTESTINAL: The abdomen is soft. Bowel sounds are present in all quadrants. Abdomen is nontender. MUSCULOSKELETAL/EXTREMITIES: There is no evidence of gross deformity. Full range of motion is noted in the hips and shoulders. SKIN: Pedal edema bilaterally with right greater than left. There is no obvious evidence of any rash. There are no petechiae, pallor or cyanosis noted. NEUROLOGIC: Patient is awake alert and oriented x3. Medical Decision & Procedures ER Provider Diagnostic Interpretation: Radiology results as stated below per my review and radiologist interpretation: CHEST ONE VIEW PORTABLE CLINICAL HISTORY: EVALUATE RESPIRATORY DISTRESS.DYSPNEA dyspnea COMPARISON STUDY: 12/21/2017 FINDINGS: The bones soft tissues and hemidiaphragms are normal. The cardiomediastinal silhouette is normal. The lungs are clear. The pulmonary vasculature is normal. IMPRESSION: Negative chest. The above report was generated using voice recognition software. It may contain grammatical, syntax or spelling errors. Electronically signed by: Carter Robison M.D. 04/19/2018 4:14 PM Laboratory Results 04/19/18 15:25 Red Blood Count 3.95, Mean Corpuscular Volume 95.2, Mean Corpuscular Hemoglobin 30.4, Mean Corpuscular Hemoglobin Concent 31.9, Mean Platelet Volume 12.6, Neutrophils (%) (Auto) 53.7, Lymphocytes (%) (Auto) 29.6, Monocytes (%) (Auto) 7.4, Eosinophils (%) (Auto) 8.2, Basophils (%) (Auto) 0.8, Neutrophils # (Auto) 1.96, Lymphocytes # (Auto) 1.08, Monocytes # (Auto) 0.27, Eosinophils # (Auto) 0.30, Basophils # (Auto) 0.03 04/19/18 15:25 Test 04/19/18 15:25 04/19/18 15:36 White Blood Count 3.56 K/uL (4.8-10.8) Red Blood Count 3.95 M/uL (4.2-5.4) Hemoglobin 12.0 g/dL (12.0-16.0) Hematocrit 37.6 % (37-47) Mean Corpuscular Volume 95.2 fL (80-100) Mean Corpuscular Hemoglobin 30.4 pg (25-34) Mean Corpuscular Hemoglobin Concent 31.9 g/dl (32-36) Platelet Count 128 K/uL (130-400) Mean Platelet Volume 12.6 fL (7.4-10.4) Neutrophils (%) (Auto) 53.7 % Lymphocytes (%) (Auto) 29.6 % Monocytes (%) (Auto) 7.4 % Eosinophils (%) (Auto) 8.2 % Basophils (%) (Auto) 0.8 % Neutrophils # (Auto) 1.96 K/uL (1.4-6.5) Lymphocytes # (Auto) 1.08 K/uL (1.2-3.4) Monocytes # (Auto) 0.27 K/uL (0.11-0.59) Eosinophils # (Auto) 0.30 K/uL (0-0.5) Basophils # (Auto) 0.03 K/uL (0-0.2) RDW Standard Deviation 56.1 fL (36.4-46.3) RDW Coefficient of Variation 16.0 % (11.5-14.5) Immature Granulocyte % (Auto) 0.3 % Immature Granulocyte # (Auto) 0.01 K/uL (0.00-0.02) Platelet Estimate DECREASED Prothrombin Time 10.7 SECONDS (9.0-12.0) Prothromb Time International Ratio 1.0 (0.9-1.1) Activated Partial Thromboplast Time 26.4 SECONDS (21.0-31.0) Partial Thromboplastin Ratio 1.0 Anion Gap 11.0 mmol/L (3-11) Est Creatinine Clear Calc Drug Dose 88.1 ml/min Estimated GFR () 94.4 Estimated GFR (Non- 81.5 BUN/Creatinine Ratio 16.5 (10-20) Calcium Level 8.7 mg/dl (8.5-10.1) Total Bilirubin 0.6 mg/dl (0.2-1) Aspartate Amino Transf (AST/SGOT) 29 U/L (15-37) Alanine Aminotransferase (ALT/SGPT) 27 U/L (12-78) Alkaline Phosphatase 100 U/L (45-117) Troponin I < 0.015 ng/ml (0-0.045) Total Protein 7.0 gm/dl (6.4-8.2) Albumin 3.8 gm/dl (3.4-5.0) Globulin 3.2 gm/dl (2.5-4.0) Albumin/Globulin Ratio 1.2 (0.9-2) Bedside D-Dimer 323 ng/mlFEU (0-450) Laboratory results per my review. ECG Per My Interpretation Indication: chest pain Rate (beats per minute): 75 Rhythm: normal sinus Findings: no ectopy, other (No acute ST segment changes) Comparison ECG Date: 12/21/17 Change: no significant change ED Course 1442: The patient was evaluated in room C4. A complete history and physical examination were performed. 1452: Maalox Susp 30m PO 1649: Upon reevaluation, the patient is resting comfortably. I discussed the results and treatment plan with her. She verbalized agreement of the treatment plan. She was discharged home. Medical Decision Prior records/ancillary studies reviewed. Triage Nursing notes reviewed. The patient's history was concerning for chest pain. Differential diagnosis: Etiologies such as cardiac ischemia, aortic dissection, pulmonary embolism, pneumonia, pneumothorax, musculoskeletal, infections, pericarditis, myocarditis , esophageal rupture, gastrointestinal, as well as others were entertained. The patient is a 62-year-old female who presented to the emergency department for an evaluation of chest pain. The patient describes lower chest pain which was pleuritic in nature. The patient has had similar symptoms in the past. I discussed patient's laboratory and radiographic studies with her. Her d-dimer was not elevated. She did not appear to have an elevated troponin or change in her EKG despite having ongoing pain for greater than 24 hours. I discussed the limitations of the emergency department workup for chest pain with her. She was encouraged to rest and avoid any strenuous activity. I also encouraged her to call her primary care physician and schedule a follow-up appointment but return to the emergency department immediately if symptoms change worsen or the need arises. Medication Reconcilliation Current Medication List: was personally reviewed by me Blood Pressure Screening Patient's blood pressure: Normal blood pressure Blood pressure disposition: Did not require urgent referral Impression Primary Impression: Chest pain Additional Impression: Pleurisy Scribe Attestation The scribe's documentation has been prepared under my direction and personally reviewed by me in its entirety. I confirm that the note above accurately reflects all work, treatment, procedures, and medical decision making performed by me. Departure Information Dispostion Home / Self-Care Forms HOME CARE DOCUMENTATION FORM, IMPORTANT VISIT INFORMATION, WORK / SCHOOL INSTRUCTIONS Patient Instructions ED Chest Pain Atypical Unkn Cause, ED Chest Pain Pleurisy, My [facility] Additional Instructions Call your family doctor to schedule a follow-up appointment. Rest and avoid any strenuous activity. Continue using Motrin and Tylenol as directed for pain. Return to the emergency department immediately if symptoms change worsen or the need arises. Problem Qualifiers Primary Impression: Chest pain Chest pain type: unspecified Qualified Codes: R07.9 - Chest pain, unspecified
[2018-04-19] MEDS ORDERED: FLM4 PO (15:36)
[2018-04-19] MEDS ORDERED: LXP10 PO (15:36)
[2018-04-19] MEDS ORDERED: DULA0.5I INJ (15:36)
[2018-04-19] MEDS ORDERED: LEVO150T9 PO (15:36)
[2018-04-19] MEDS ORDERED: POTA10TA30 PO (15:36)
[2018-04-19] MEDS ORDERED: ASCO-63 PO (15:36)
[2018-04-19] MEDS ORDERED: DTR5 PO (15:36)
[2018-04-19] MEDS ORDERED: KFLHP PO (15:36)
[2018-04-19] MEDS ORDERED: CRG/20 PO (15:36)
[2018-04-19 15:45] VITALS: Ht 149.9 cm; Wt 121.7 kg
[2018-04-19 15:48] LABS: PTT PATIENT 26.4 SECONDS (21.0-31.0)
[2018-04-19 15:52] LABS: HEMATOCRIT 37.6 % (37-47); MEAN CELL VOLUME 95.2 fL (80-100); MEAN CORPUSCULAR HEMOGLOBIN 30.4 pg (25-34); MEAN CORPUSCULAR HGB CONC 31.9 g/dl (32-36); RED CELL DISTRIBUTION WIDTH SD 56.1 fL (36.4-46.3); WHITE BLOOD COUNT 3.56 K/uL (4.8-10.8)
[2018-04-19 15:59] LABS: BASO % 0.8 %; BASO ABS # 0.03 K/uL (0-0.2); EOS % 8.2 %; IG# 0.01 K/uL (0.00-0.02); LYMPH % 29.6 %; LYMPH ABS # 1.08 K/uL (1.2-3.4); MEAN PLATELET VOLUME 12.6 fL (7.4-10.4); MONO % 7.4 %; MONO ABS # 0.27 K/uL (0.11-0.59); NEUT % 53.7 %; NEUT ABS # 1.96 K/uL (1.4-6.5); PLATELET COUNT 128 K/uL (130-400)
[2018-04-19 16:03] LABS: ALBUMIN 3.8 gm/dl (3.4-5.0); ALKALINE PHOSPHATASE 100 U/L (45-117); ALT/SGPT 27 U/L (12-78); AST/SGOT 29 U/L (15-37); BLOOD UREA NITROGEN 13 mg/dl (7-18); CALCIUM 8.7 mg/dl (8.5-10.1); CARBON DIOXIDE 24 mmol/L (21-32); CREATININE 0.78 mg/dl (0.60-1.20); GLUCOSE 146 mg/dl (70-99); POTASSIUM 4.1 mmol/L (3.5-5.1); SODIUM 142 mmol/L (136-145)
--- NOTE | 2018-04-19 16:15 | DIAGNOSTIC IMAGING REPORT ---
CHEST ONE VIEW PORTABLE CLINICAL HISTORY: EVALUATE RESPIRATORY DISTRESS.DYSPNEA dyspnea COMPARISON STUDY: 12/21/2017 FINDINGS: The bones soft tissues and hemidiaphragms are normal. The cardiomediastinal silhouette is normal. The lungs are clear. The pulmonary vasculature is normal. IMPRESSION: Negative chest. The above report was generated using voice recognition software. It may contain grammatical, syntax or spelling errors. Electronically signed by: Carter Robison M.D. 04/19/2018 4:14 PM Dictated Date/Time: 04/19/2018 4:14 PM
[2018-04-19] MEDS ORDERED: NYSCR30 EXT (16:42)
[2018-04-19 16:48] VITALS: BP 117/88; PULSE 74; O2SAT 93
[2018-04-19] MEDS ORDERED: METF-384 PO (17:20)
[2018-04-19] MEDS ORDERED: LPT40 PO (17:20)
[2018-04-19] MEDS ORDERED: FURO-85 PO (17:20)
[2018-04-19] MEDS ORDERED: FEXO1TAB46 PO (17:20)
[2018-04-19] MEDS ORDERED: CYCL10TA6 PO (17:20)
[2018-04-19] MEDS ORDERED: ASPI81TA28 PO (17:24)
[2018-04-19] MEDS ORDERED: GABA-1219 PO (19:07)
[2018-04-19] MEDS ORDERED: IPRA-64 INH (19:07)
[2018-04-19] MEDS ORDERED: INSDGI SC (21:37)
[2018-04-19] MEDS ORDERED: FLUT0.15 NAE (21:37)
[2018-04-19] MEDS ORDERED: MULT-845 PO (22:39)
== END 2018-04-19 16:49 | disposition home or self-care (01) ==
LOC: C.EDB 14:32 → C.EDC 16:49
DX: R07.9 Chest pain, unspecified (principal); R09.1 Pleurisy; I10 Essential (primary) hypertension; E11.9 Type 2 diabetes mellitus without complications; J45.909 Unspecified asthma, uncomplicated; F33.9 Major depressive disorder, recurrent, unspecified; G80.9 Cerebral palsy, unspecified; K75.81 Nonalcoholic steatohepatitis (NASH); E78.5 Hyperlipidemia, unspecified; E03.9 Hypothyroidism, unspecified; M19.90 Unspecified osteoarthritis, unspecified site; M79.7 Fibromyalgia; Z88.0 Allergy status to penicillin; Z79.82 Long term (current) use of aspirin; Z79.84 Long term (current) use of oral hypoglycemic drugs; Z79.899 Other long term (current) drug therapy

== ENCOUNTER 2019-03-27 13:03 | Inpatient (IN) ==
[2019-03-27] MEDS ORDERED: OXYCODONE HCL IR 5 MG TAB (IMMEDIATE RELEASE) PO STA (13:15)
--- NOTE | 2019-03-27 13:48 | XRay Report ---
XR hip RT 2-3V w pelvis CLINICAL HISTORY: fall trauma. Pain. COMPARISON: None. DISCUSSION: The bones and joint spaces appear intact. There is no evidence of fracture, dislocation o r bony disease. There is no evidence for soft tissue swelling. IMPRESSION: Moderate degenerative change. No acute bony abnormality. The above report was generated using voice recognition software. It may contain grammatical, syntax or spelling errors. Electronically signed by: Carter Robison M.D. 03/27/2019 1:47 PM
--- NOTE | 2019-03-27 13:52 | XRay Report ---
XR knee RT 2V routine CLINICAL HISTORY: Knee pain status post trauma COMPARISON: 1118 DISCUSSION: The examination is somewhat limited from a positioning standpoint. Bones are osteopenic. There are moderate osteoarthritic changes present. No acute fractures are delineated. IMPRESSION: 1. Technically limited study from positioning standpoint 2. No acute fractures identified 3. Moderate osteoarthritic change Electronically signed by: Caesar Pedroza M.D. 03/27/2019 1:51 PM
--- NOTE | 2019-03-27 13:52 | XRay Report ---
XR ankle RT min 3V routine CLINICAL HISTORY: fall trauma. Pain. COMPARISON: None. DISCUSSION: The bones and joint spaces appear intact. There is no evidence of fracture, dislocation o r bony disease. Mild generalized soft tissue edema. Osteopenia. IMPRESSION: Mild degenerative change and osteopenia. No acute bony abnormality. The above report was generated using voice recognition software. It may contain grammatical, syntax or spelling errors. Electronically signed by: Carter Robison M.D. 03/27/2019 1:51 PM
--- NOTE | 2019-03-27 14:43 | CT Scan Report ---
CT tib/fib RT wo con CLINICAL HISTORY: Fall. COMPARISON STUDY: Right ankle radiographs July 19, 2018 and March 27, 2019. Right knee radiographs July 19, 2018 and March 27, 2019. TECHNIQUE: Axial images of the right tibia and fibula were obtained without IV contrast. Sagittal and coronal reconstructions were viewed. Study was performed utilizing automated exposure control and ac cording to ALARA principles. FINDINGS: No acute fracture of the right tibia or fibula is identified. There is no suspicious osseou s lesion. There is no CT evidence for osteomyelitis. Alignment of the right knee and ankle is anatomi c. There is moderate osteoarthritis of the right knee. Talar dome is intact. There is calcification w ithin the Achilles consistent with calcific tendinitis. Integrity of the Achilles is suboptimally ass essed by CT. No hematoma within the right lower leg is noted. There is subcutaneous edema at the leve l the ankle. IMPRESSION: 1. No acute fracture within the right tibia or fibula. 2. Calcific tendinitis of the right Achilles. 3. Moderate right knee osteoarthritis. Electronically signed by: Lucas Lambert M.D. 03/27/2019 2:42 PM
--- NOTE | 2019-03-27 16:26 | Emergency Department Note ---
Entered by Anastasia Hall acting as a scribe for Papito Telles DO History of Present Illness General Chief complaint: Fall Source: patient History of Present Illness Onset (ago): hour(s) 5 Location: right (knee) Pain Consistency: + intermittent Exacerbated By: + other (bearing weight) Associated symptoms: + denies other symptoms (right hip, right foot) and + other (right ankle, low back) The patient is a 63 year old female who presents to the ED with complaints of intermittent right knee pain that began 5 hours ago. The patient states that she fell this morning when she was trying to get into the car. The patient states that her right foot slipped and she fell on her right knee. The patient states that she feels the most pain in her right knee and ankle when she tries to bear weight on it. The patient reports that she feels some pain in her lower back. She denies pain in her right hip and right foot. She reports that she took no medication prior to arrival; She claims that she is allergic to Penicillin. The patient states that her knee is not reduced prior to arrival. Home Medications Home Medications Medication Instructions Recorded Confirmed Type Lantus Solostar U-100 Insulin 24 unit SUBCUT HS 06/16/18 03/27/19 History ascorbic acid (vitamin C) [Vitamin 500 mg PO QAM 06/16/18 03/27/19 History C] aspirin [Aspir-81] 81 mg PO QAM 06/16/18 03/27/19 History atorvastatin 40 mg PO HS 06/16/18 03/27/19 History cyclobenzaprine 10 mg PO HS 06/16/18 03/27/19 History dulaglutide 1.5 mg SUBCUT WK 06/16/18 03/27/19 History fexofenadine [Danita Allergy] 180 mg PO QAM PRN 06/16/18 03/27/19 History furosemide [Lasix] 20 mg PO QAM PRN 06/16/18 03/27/19 History gabapentin 300 mg PO UD 06/16/18 03/27/19 History levothyroxine 150 mcg PO QAM 06/16/18 03/27/19 History metformin 1,000 mg PO BIDM 06/16/18 03/27/19 History omeprazole 20 mg PO QAM 06/16/18 03/27/19 History oxybutynin chloride 5 mg PO BID 06/16/18 03/27/19 History potassium chloride 10 meq PO QAM 06/16/18 03/27/19 History trazodone 50 mg PO HS 06/16/18 03/27/19 History Centrum Silver 1 tab PO QAM 07/19/18 03/27/19 History escitalopram oxalate 20 mg PO QAM 07/19/18 03/27/19 History fluticasone propionate [Flonase 2 spray INTRANASAL QAM 07/19/18 03/27/19 History Allergy Relief] gabapentin 600 mg PO HS 07/19/18 03/27/19 History ferrous sulfate 325 mg PO QAM 02/21/19 03/27/19 History Allergies Allergy/AdvReac Type Severity Reaction Status Date / Time Penicillins Allergy Intermediate HIVES Verified 03/27/19 13:43 Past Med/Surg History Medical History Cerebral palsy (Chronic) Fibromyalgia (Chronic) Hypothyroidism (Chronic) NG (nonalcoholic steatohepatitis) (Chronic) Osteoarthritis (Chronic) DM type 2 (diabetes mellitus, type 2) (Chronic) IDDM Asthma (Chronic) DOES NOT USE INH. REPORTS USING NEB TREATMENTS BID. Dyslipidemia (Chronic) Obstructive sleep apnea (Chronic) CPAP + OXYGEN AT 2 LPM @ NIGHT History of migraine (Chronic) Venous insufficiency (Chronic) Bilateral lower extremity edema (Chronic) Anxiety Cardiac murmur Chronic back pain Cough CHRONIC PER PT REPORT Depression GERD (gastroesophageal reflux disease) History of kidney stones Hoarseness of voice CHRONIC PER PT REPORT Hypertension Obesity (BMI 30-39.9) On home oxygen therapy 2 LPM @ NIGHT + CPAP Poor historian SOB (shortness of breath) on exertion Surgical History History of Achilles tendon repair History of section History of colonoscopy History of dilatation and curettage History of esophagogastroduodenoscopy (EGD) History of tooth extraction Family History Father Family history of diabetes mellitus Other No pertinent family history Social History Preferred Language: Egyptian Communication Ability: Effective Experience Designer Required: No Beliefs That Will Affect Care: None Current Living Situation: Spouse Current Living Situation Comment: [employer] machine Other Information That Helps Us Care for You: No Feels Safe at Home: No Is there a partner from a previous relationship who is making you feel unsafe now?: No Safety Concerns: Feels Safe At This Time Smoking Status: Never smoker Second Hand Exposure: Yes (PREVIOUS EXPOSURE) Hx Alcohol Use: No Hx Substance Use: No Review of Systems See HPI for pertinent positives & negatives. and A total of 10 systems reviewed and were otherwise negative Physical Exam Vital Signs Vital Signs - 24 hr 03/27/19 13:28 03/27/19 15:42 Temperature 37.1 C Temperature Source Oral Sepsis Recent Fever Within 48 Hours No Sepsis New/Unexplained Change in Mental Status No Sepsis Action Taken by Nursing No Action Required Pulse Rate 75 Pulse Rate [Right Finger] 76 Pulse Rhythm Regular Pulse Strength Normal Respiratory Rate 20 18 Respiratory Effort / Characteristics Non-Labored Spontaneous Respiratory Depth Normal Respiratory Pattern Regular Blood Pressure 106/77 Blood Pressure [Right Arm] 127/61 Blood Pressure Mean 86 Blood Pressure Mean [Right Arm] 83 Blood Pressure Position Lying Pulse Oximetry 94 98 Oxygen Delivery Method Room Air GENERAL: Patient is awake, alert, and in no acute distress. Anxious appearing and uncomfortable appearing. EYES: The conjunctivae are clear. The pupils are round and reactive. EARS, NOSE, MOUTH AND THROAT: The nose is without any evidence of any deformity. Mucous membranes are moist.Tongue is midline NECK: The neck is nontender and supple. RESPIRATORY: Normal respiratory effort is noted. There is no evidence of wheezing rhonchi or rales to auscultation. CARDIOVASCULAR: Regular rate and rhythm noted. There no murmurs rubs or gallops normal S1 normal S2 GASTROINTESTINAL: The abdomen is soft. Bowel sounds are present in all quadrants. Abdomen is nontender. BACK: No midline tenderness or or step-off noted range of motion in flexion extension as well as rotation no signs of muscle spasm noted. MUSCULOSKELETAL/EXTREMITIES: There is no evidence of gross deformity. Full range of motion is noted in the hips and shoulders. Tenderness to palpation of the anterior part of the knee and right leg. No obvious deformity. Anterior and posterior drawer testing of the right knee showed no instability. SKIN: There is no obvious evidence of any rash. There are no petechiae, pallor or cyanosis noted. Trace pedal edema bilaterally. Skin was warm and pulses were symmetric in both feet. NEUROLOGIC: Patient is awake alert and oriented x3. Course 1309: Past medical records reviewed. The patient was evaluated in room A11B. A complete history and physical exam was performed. 1406: I reevaluated the patient and updated her on her test results thus far. 1601: Case management met with the patient and saw her. The patient needs to be bought into the hospital before she can go to rehab. 1609: I reevaluated the patient and updated her on her test results at this time. I discussed the treatment plan with her. She verbally agrees and understands. 1617: I discussed the patient's case with Dr[facility]. He will evaluate the patient for further management. Consultations Consultation #1: I discussed the patient's case with Dr. Tiffanie Finn. He will evaluate the patient for further management. Time: 16:17 Administered Medications Discontinued Medications Oxycodone HCl (Roxicodone Immediate Rel) 5 mg PO NOW STA Stop: 03/27/19 13:16 Last Admin: 03/27/19 13:22 Dose: 5 mg Documented by: [id number] Medical Decision Making Differential Diagnosis Differential diagnosis: Etiologies such as fracture, dislocation, neurovascular compromise, compartment syndrome, soft tissue injury, as well as others were entertained. Medical Records Attestation: I reviewed the patient's medical records. Home Medications Current Medication List: was personally reviewed by me Laboratory Data Attestation: I reviewed the patient's lab results. Result diagrams: 03/27/19 16:40 03/27/19 16:40 Imaging Data Radiologist's Impression: Radiology results as stated below per my review and the radiologist's interpretation: XR hip RT 2-3V w pelvis CLINICAL HISTORY: fall trauma. Pain. COMPARISON: None. DISCUSSION: The bones and joint spaces appear intact. There is no evidence of fracture, dislocation or bony disease. There is no evidence for soft tissue swelling. IMPRESSION: Moderate degenerative change. No acute bony abnormality. The above report was generated using voice recognition software. It may contain grammatical, syntax or spelling errors. Electronically signed by: Carter Robison M.D. 03/27/2019 1:47 PM XR knee RT 2V routine CLINICAL HISTORY: Knee pain status post trauma COMPARISON: 1118 DISCUSSION: The examination is somewhat limited from a positioning standpoint. Bones are osteopenic. There are moderate osteoarthritic changes present. No acu te fractures are delineated. IMPRESSION: 1. Technically limited study from positioning standpoint 2. No acute fractures identified 3. Moderate osteoarthritic change Electronically signed by: Caesar Pedroza M.D. 03/27/2019 1:[address] tib/fib RT wo con CLINICAL HISTORY: Fall. COMPARISON STUDY: Right ankle radiographs July 19, 2018 and March 27, 2019. Right knee radiographs July 19, 2018 and March 27, 2019. TECHNIQUE: Axial images of the right tibia and fibula were obtained without IV contrast. Sagittal and coronal reconstructions were viewed. Study was performed utilizing automated exposure control and according to ALARA principles. FINDINGS: No acute fracture of the right tibia or fibula is identified. There is no suspicious osseous lesion. There is no CT evidence for osteomyelitis. Alignment of the right knee and ankle is anatomic. There is moderate osteoarthritis of the right knee. Talar dome is intact. There is calcification within the Achilles consistent with calcific tendinitis. Integrity of the Achilles is suboptimally assessed by CT. No hematoma within the right lower leg is noted. There is subcutaneous edema at the level the ankle. IMPRESSION: 1. No acute fracture within the right tibia or fibula. 2. Calcific tendinitis of the right Achilles. 3. Moderate right knee osteoarthritis. Electronically signed by: Lucas Lambert M.D. 03/27/2019 2:42 PM XR ankle RT min 3V routine CLINICAL HISTORY: fall trauma. Pain. COMPARISON: None. DISCUSSION: The bones and joint spaces appear intact. There is no evidence of fracture, dislocation or bony disease. Mild generalized soft tissue edema. Osteopenia. IMPRESSION: Mild degenerative change and osteopenia. No acute bony abnormality. The above report was generated using voice recognition software. It may contain grammatical, syntax or spelling errors. Electronically signed by: Carter Robison M.D. 03/27/2019 1:51 PM Blood Pressure Blood Pressure Findings: Normal blood pressure Blood Pressure Disposition: did not require urgent referral MDM Narrative The patient is a 63-year-old female who presented to the emergency department after fall. The patient was at her primary care physician's office where she is trying to be placed for inpatient rehab when she was walking with her walker and fell. The patient landed on her right knee. There was no instability noted in anterior and posterior testing. Pulses were symmetric. X-rays did not reveal any acute bony injury. She had continued pain so CT was obtained which still did not show any acute signs of fracture. I discussed the patient's radiographic studies with her. She was given an ambulatory trial which she did not do well at. I discussed her case with the nurse case manager in the emergency department. A referral was made for inpatient rehab however given the patient's comorbidities she was felt to be a better candidate for observation and then obtain an OT/PT consult to determine her level of need. I discussed this with the patient and she was agreeable. I also discussed her case with the on-call [facility] hospitalist. They have agreed to evaluate the patient in the emergency department for further management disposition. The patient was treated with pain medication. Impression & Plan Fall, Ambulatory dysfunction, Contusion of knee, right, Right knee sprain, Right ankle sprain Discharge Plan Visit Data *Final* Discharge Date/Time: 03/27/19 17:42 Chief Complaint: Fall ED Provider: Papito Telles Discharge Problem: Fall, Ambulatory dysfunction, Contusion of knee, right, Right knee sprain, Right ankle sprain Patient Disposition: Being Evaluated by Hospitalist Discharge Instructions Interventions: ED Discharge Assessment Last Done: 03/27/19 17:42 Discharge Problem: Fall Qualifiers: Encounter type: initial encounter Qualified Code(s): W19.XXXA - Unspecified fall, initial encounter Contusion of knee, right Qualifiers: Encounter type: initial encounter Qualified Code(s): S80.01XA - Contusion of right knee, initial encounter Right knee sprain Qualifiers: Encounter type: initial encounter Involved ligament of knee: unspecified ligament Qualified Code(s): S83.91XA - Sprain of unspecified site of right knee, initial encounter Right ankle sprain Qualifiers: Encounter type: initial encounter Involved ligament of ankle: unspecified ligament Qualified Code(s): S93.401A - Sprain of unspecified ligament of right ankle, initial encounter The scribe's documentation has been prepared under my direction and personally reviewed by me in its entirety. I confirm that the note above accurately reflec ts all work, treatment, procedures, and medical decision making performed by me.
--- NOTE | 2019-03-27 16:39 | History & Physical Report ---
Date of Service March 27, 2019 Assessment & Plan (1) Ambulatory dysfunction: Morbid Obesity with BMI 56.1 Cerebral Palsy Osteoarthritis -patient has been having progressive decline in ambulation as per history -possible right ankle sprain -she fell when walking and while no acute fractures on imaging she continues to have ambulatory dysfunction in the emergency department -CT right leg 1. No acute fracture within the right tibia or fibula. 2. Calcific tendinitis of the right Achilles. 3. Moderate right knee osteoarthritis. -will monitor the patient in the hospital and have physical and occupation assessment -acetaminophen prn q6 hour for pain or fever, ibuprofen prn for moderate pain -check creatinine kinase and thyroid function -at home patient takes Lasix 20 mg prn, would hold off on lasix for now as no respiratory complaints and size of legs appeared to be reflective of obesity rather than fluid retention Type 2 diabetes mellitus with long term care phlebotomist current of insulin -hold home whiting metformin, hold home dose weekly Trulicity for now -continue Lantus home dose 24 units qhs -sliding scale insulin as needed -diabetic diet -continue gabapentin Hypothyroidism -continue home dose levothyroxine check thyroid function labs DVT ppx: Lovenox daily Full Code Syed [phone] Patient placed under observation by Dr. Rose and will be followed by colleague Dr. Dale starting on 03/28/19 History of Present Illness This is a 63 year old female who has been having progressive declines in ambulation, reports history of cerebral palsy who was at her primary acre doctor when she believes she fell after twisting her right ankle. Patient was evaluated in the emergency department and no acute fractures on imaging. At baseline, patient reports that she uses a walker. Patient is obese and a diabetic patient with diabetes medication including chcf insulin. Patient did not appeared to ahve loss consciousness any time since the initial fall but when evaluated by ED provider, main concern of her not being able to ambulate to leave the emergency department. On exam of admitting hospitalist, patient appears comfortable. She denies acute pain. No tenderness of the lower extremities. Perhaps some milder swelling of the right leg compared to the left leg. However both lower extremities are symmetrically weak on exam when laying on the bed. Patient denies fever, no chest pain, no shortness of breath, no palpitations, no abdomen pain, no dizziness, no headache, no back pain, no problems with bowel or urine output denies family history of health problems as per patient allergies are to penicillin which causes rash Primary Care Provider: Rajwinder Carter, Allergies Allergy/AdvReac Type Severity Reaction Status Date / Time Penicillins Allergy Intermediate HIVES Verified 03/27/19 13:43 Home Medications Home Medications Medication Instructions Recorded Confirmed Type Lantus Solostar U-100 Insulin 24 unit SUBCUT HS 06/16/18 03/27/19 History ascorbic acid (vitamin C) [Vitamin 500 mg PO QAM 06/16/18 03/27/19 History C] aspirin [Aspir-81] 81 mg PO QAM 06/16/18 03/27/19 History atorvastatin 40 mg PO HS 06/16/18 03/27/19 History cyclobenzaprine 10 mg PO HS 06/16/18 03/27/19 History dulaglutide 1.5 mg SUBCUT WK 06/16/18 03/27/19 History fexofenadine [Danita Allergy] 180 mg PO QAM PRN 06/16/18 03/27/19 History furosemide [Lasix] 20 mg PO QAM PRN 06/16/18 03/27/19 History gabapentin 300 mg PO UD 06/16/18 03/27/19 History levothyroxine 150 mcg PO QAM 06/16/18 03/27/19 History metformin 1,000 mg PO BIDM 06/16/18 03/27/19 History omeprazole 20 mg PO QAM 06/16/18 03/27/19 History oxybutynin chloride 5 mg PO BID 06/16/18 03/27/19 History potassium chloride 10 meq PO QAM 06/16/18 03/27/19 History trazodone 50 mg PO HS 06/16/18 03/27/19 History Centrum Silver 1 tab PO QAM 07/19/18 03/27/19 History escitalopram oxalate 20 mg PO QAM 07/19/18 03/27/19 History fluticasone propionate [Flonase 2 spray INTRANASAL QAM 07/19/18 03/27/19 History Allergy Relief] gabapentin 600 mg PO HS 07/19/18 03/27/19 History ferrous sulfate 325 mg PO QAM 02/21/19 03/27/19 History Past Med/Surg History Social History Preferred Language: Hungarian Communication Ability: Effective Beliefs That Will Affect Care: None Current Living Situation: Spouse and Family Feels Safe at Home: Yes Smoking Status: Never smoker Second Hand Exposure: Yes (PREVIOUS EXPOSURE) Hx Alcohol Use: No Hx Substance Use: No Review of Systems Review of Systems: All systems reviewed & are unremarkable except as noted in HPI & below Physical Exam Constitutional: + obese Eyes: PERRL, conjunctivae normal, anicteric sclerae EOM intact bilaterally ENMT: external ear and nose normal, oropharynx normal Neck: trachea midline, no thyromegaly Respiratory: normal respiratory effort, lungs clear to auscultation Cardiovascular: Rate/Rhythm: regular rate and regular rhythm Gastrointestinal (Abdomen): normal bowel sounds, soft, nontender, no hepatosplenomegaly Musculoskeletal: Head/Neck/Chest: normocephalic and head atraumatic no acute tenderness of the legs. patient has equally diminished strength of the legs when laying flat on the back, mild more swollen right leg than left leg Neurologic: PERRL, EOMI, accommodation nl, no face palsy, no dysarthria Psychiatric: A+Ox3, euthymic affect Results & Data Vital Signs (Past 12 Hours) Vital Signs Temp Pulse Pulse Resp BP BP Pulse Ox 03/27/19 15:42 76 18 127/61 98 03/27/19 13:28 37.1 C 75 20 106/77 94
[2019-03-27 17:13] LABS: Partial Thromboplastin Time 27.6 Seconds (21.0-31.0)
[2019-03-27 17:14] LABS: Albumin Level 3.4 gm/dl (3.4-5.0); BUN Creatinine Ratio 16.5 (10-20); C Reactive Protein 0.77 mg/dl (0-0.29); Calcium 8.8 mg/dl (8.5-10.1); Est GFR (African American) 101.6; Est GFR (Non-African American) 87.7; Magnesium 1.8 mg/dl (1.8-2.4); Potassium 3.9 mmol/L (3.5-5.1)
[2019-03-27 17:23] LABS: Bilirubin,Total 0.4 mg/dl (0.2-1); Globulin 3.6 gm/dl (2.5-4.0)
[2019-03-27 17:49] LABS: Anisocytosis Present; Basophils # (auto) 0.01 K/uL (0-0.2); Basophils % (auto) 0.3 %; Eosinophils # (auto) 0.31 K/uL (0-0.5); Eosinophils % (auto) 8.4 %; Hematocrit (blood only) 32.2 % (37-47); Immature Granulocytes # (auto) 0.02 K/uL (0.00-0.02); Immature Granulocytes % (auto) 0.5 %; Lymphocytes # (auto) 1.05 K/uL (1.2-3.4); Lymphocytes % (auto) 28.5 %; Mean Corpuscular Hgb Conc 31.1 g/dL (32-36); Mean Corpuscular Volume 92.5 fL (80-100); Monocytes # (auto) 0.37 K/uL (0.11-0.59); Neutrophils # (auto) 1.93 K/uL (1.4-6.5); Neutrophils % (auto) 52.3 %; Ovalocytes 1+; Platelet Count 90 K/uL (130-400); Platelet Estimate Decreased (Normal); RDW Coefficient of Variation 22.5 % (11.5-14.5); RDW Standard Deviation 76.7 fL (36.4-46.3); Red Blood Count 3.48 M/uL (4.2-5.4); Tear Drop Cells 1+; White Blood Count 3.69 K/uL (4.8-10.8)
[2019-03-27] MEDS ORDERED: GLUCAGON FOR INJ 1 MG VIAL IM PRN (18:15)
[2019-03-27] MEDS ORDERED: GLUCOSE 10 TABS/TUBE PO PRN ×2 (18:15→18:39)
[2019-03-27] MEDS ORDERED: CARBOHYDRATES FOR HYPOGLYCEMIA PO PRN ×2 (18:15→18:39)
[2019-03-27] MEDS ORDERED: DEXTROSE 50% 50 ML SYRINGE IV PRN ×2 (18:15→18:39)
[2019-03-27] MEDS ORDERED: GLUCOSE 40% GEL 15 GM TUBE PO PRN ×2 (18:15→18:39)
[2019-03-27 18:17] LABS: INR 1.1 (0.9-1.1); Prothrombin Time 11.4 Seconds (9.0-12.0)
[2019-03-27] MEDS ORDERED: GLUCAGON FOR INJ 1 MG VIAL SQ PRN (18:39)
[2019-03-27] MEDS: CYCLOBENZAPRINE HCL 10 MG TAB PO SCH (21:36)
[2019-03-27] MEDS: OXYBUTYNIN CHLORIDE 5 MG TAB PO SCH (21:36)
[2019-03-27] MEDS: GABAPENTIN 300 MG CAP PO SCH (21:36)
[2019-03-27] MEDS: ATORVASTATIN 40 MG TAB PO SCH (21:36)
[2019-03-27] MEDS: INSULIN GLARGINE SOLOSTAR 100 UNITS/ML 3 ML PEN SQ SCH (21:36)
[2019-03-27] MEDS: TRAZODONE HCL 50 MG TAB PO SCH (21:36)
[2019-03-27] MEDS: INSULIN ASPART 100 UNITS/ML 3 ML PEN SC SCH (21:37)
[2019-03-27] MEDS: ENOXAPARIN INJ 40 MG/0.4 ML SYR SQ SCH (21:37)
[2019-03-28] MEDS: LEVOTHYROXINE SODIUM 150 MCG TABLET PO SCH (05:39)
[2019-03-28 07:00] LABS: Mean Corpuscular Hgb Conc 30.4 g/dL (32-36)
[2019-03-28 07:09] LABS: Estimated Average Glucose 140 mg/dl
[2019-03-28 07:16] LABS: Hematocrit (blood only) 31.9 % (37-47); Hemoglobin 9.7 g/dL (12.0-16.0); Mean Corpuscular Volume 94.9 fL (80-100); RDW Coefficient of Variation 22.4 % (11.5-14.5); RDW Standard Deviation 78.6 fL (36.4-46.3); Red Blood Count 3.36 M/uL (4.2-5.4)
[2019-03-28 07:19] LABS: Albumin Level 3.1 gm/dl (3.4-5.0); BUN Creatinine Ratio 18.1 (10-20); Calcium 8.4 mg/dl (8.5-10.1); Creatinine Clr Calc Pharmacy 87.6 ml/min; Est GFR (African American) 95.2; Est GFR (Non-African American) 82.2; Potassium 3.4 mmol/L (3.5-5.1)
[2019-03-28 07:23] LABS: Anisocytosis Present; Basophils # (auto) 0.02 K/uL (0-0.2); Basophils % (auto) 0.6 %; Eosinophils # (auto) 0.26 K/uL (0-0.5); Eosinophils % (auto) 8.1 %; Giant Platelets 1+; Lymphocytes # (auto) 1.14 K/uL (1.2-3.4); Lymphocytes % (auto) 35.6 %; Monocytes # (auto) 0.31 K/uL (0.11-0.59); Monocytes % (auto) 9.7 %; Neutrophils # (auto) 1.47 K/uL (1.4-6.5); Platelet Count 79 K/uL (130-400); Platelet Estimate Decreased (Normal); Tear Drop Cells 1+
[2019-03-28 07:24] LABS: Albumin Globulin Ratio 0.9 (0.9-2); Bilirubin,Total 0.5 mg/dl (0.2-1); Globulin 3.4 gm/dl (2.5-4.0); Total Protein 6.5 gm/dl (6.4-8.2)
[2019-03-28] MEDS ORDERED: POTASSIUM CHLORIDE 10 MEQ TABCR PO STA (09:10)
[2019-03-28] MEDS: MULTIVITAMIN TAB PO SCH (09:13)
[2019-03-28] MEDS: ASCORBIC ACID 500 MG TAB PO SCH (09:13)
[2019-03-28] MEDS: FERROUS SULFATE 325 MG TAB PO SCH (09:13)
[2019-03-28] MEDS: OXYBUTYNIN CHLORIDE 5 MG TAB PO SCH ×2 (09:13→20:55)
[2019-03-28] MEDS: ASPIRIN 81 MG ECTAB PO SCH (09:13)
[2019-03-28] MEDS: ESCITALOPRAM OXALATE 20 MG TAB PO SCH (09:13)
[2019-03-28] MEDS: PANTOprazole 40 MG TAB PO SCH (09:13)
[2019-03-28] MEDS: FLUTICASONE PROPIONATE NA SPR 16 GM BTL SCH (09:14)
[2019-03-28] MEDS: INSULIN ASPART 100 UNITS/ML 3 ML PEN SC SCH ×4 (09:16→20:57)
[2019-03-28] MEDS ORDERED: MICONAZOLE NITRATE POWDER 43 GM EXT PRN (11:02)
--- NOTE | 2019-03-28 16:36 | Hospitalist Progress Note ---
Date of Service March 28, 2019 Assessment & Plan (1) Ambulatory dysfunction: Ambulatory Dysfunction Cerebral Palsy Osteoarthritis Possible right ankle sprain Fall CT right leg: No acute fracture within the right tibia or fibula. Calcific tendinitis of the right Achilles. Moderate right knee osteoarthritis. PT/OT eval Normal CK levels Not safe to be discharged home Needs rehab placement DM II: Well Controlled A1C:6.5 Hold metformin, Trulicity Continue Insulin therapy continue gabapentin Hypothyroidism Normal TSH continue levothyroxine Morbid Obesity BMI:53 VIDA: Fibromyalgia: Continue Trazodone DVT Px: Lovenox SQ Code Status Full Code Disposition: Needs Rehab Placement Subjective Patient is seen and examined at bedside Complains of right foot/ankle pain with ambulation Reports chronic cough which is unchanged Denies any chest pain, shortness of breath, dizziness Offers no other complaints Waiting for placement Review of Systems Review of Systems: All systems reviewed & are unremarkable except as noted in HPI & below Physical Exam Physical Exam: Physical Exam: Vitals signs as noted above General Appearance:Morbidly Obese, no apparent distress Head: normocephalic, Atraumatic Eyes: normal inspection, EOMI Neck: supple, Trachea midline Respiratory/Chest: Normal breath sounds, CTA Cardiovascular: S1, S2, No murmur Abdomen/GI:Soft, Non tender, Bowel sounds present Extremities/Musculoskelatal:normal inspection, 1+ B/L pedal edema Neurologic/Psych:AAOX3, grossly no focal neurological deficits Skin: normal color, warm Results & Data Vital Signs (Past 12 Hours) Vital Signs Temp Pulse Resp BP Pulse Ox 03/28/19 07:21 36.9 C 74 16 119/71 91 Laboratory Results Short CBC 03/27/19 03/28/19 Range/Units 16:40 06:32 WBC 3.69 L 3.20 L (4.8-10.8) K/uL Hgb 10.0 L 9.7 L (12.0-16.0) g/dL Hct 32.2 L 31.9 L (37-47) % Plt Count 90 L 79 L (130-400) K/uL BMP 03/27/19 03/28/19 16:40 06:32 Sodium 143 143 Potassium 3.9 3.4 L Chloride 111 H 109 H Carbon Dioxide 26 27 BUN 12 14 Creatinine 0.73 0.77 Glucose 114 H 115 H Calcium 8.8 8.4 L Cardiac Enzymes 07/17/19 Range/Units 16:40 Total Creatine Kinase 104 (26-192) U/L Liver Function 03/27/19 03/28/19 Range/Units 16:40 06:32 Total Bilirubin 0.4 0.5 (0.2-1) mg/dl AST 33 33 (15-37) U/L ALT 32 27 (12-78) U/L Alkaline Phosphatase 116 105 (45-117) U/L Albumin 3.4 3.1 L (3.4-5.0) gm/dl
[2019-03-28] MEDS ORDERED: FUROSEMIDE 20 MG TAB PO PRN (16:52)
[2019-03-28] MEDS: ACETAMINOPHEN 325 MG TAB PO PRN (20:53)
[2019-03-28] MEDS: GABAPENTIN 300 MG CAP PO SCH (20:54)
[2019-03-28] MEDS: ATORVASTATIN 40 MG TAB PO SCH (20:54)
[2019-03-28] MEDS: ENOXAPARIN INJ 40 MG/0.4 ML SYR SQ SCH (20:55)
[2019-03-28] MEDS: CYCLOBENZAPRINE HCL 10 MG TAB PO SCH (20:56)
[2019-03-28] MEDS: TRAZODONE HCL 50 MG TAB PO SCH (20:57)
[2019-03-28] MEDS: INSULIN GLARGINE SOLOSTAR 100 UNITS/ML 3 ML PEN SQ SCH ×2 (20:57→21:03)
[2019-03-29] MEDS: LEVOTHYROXINE SODIUM 150 MCG TABLET PO SCH (05:55)
[2019-03-29 06:11] LABS: Mean Corpuscular Hgb Conc 30.3 g/dL (32-36)
[2019-03-29 06:25] LABS: Mean Corpuscular Volume 94.8 fL (80-100); RDW Coefficient of Variation 22.3 % (11.5-14.5); Red Blood Count 3.48 M/uL (4.2-5.4); White Blood Count 2.88 K/uL (4.8-10.8)
[2019-03-29 06:48] LABS: BUN Creatinine Ratio 15.9 (10-20); Calcium 8.6 mg/dl (8.5-10.1); Creatinine Clr Calc Pharmacy 85.3 ml/min; Est GFR (African American) 92.3; Est GFR (Non-African American) 79.7; Platelet Count 89 K/uL (130-400); Platelet Estimate Decreased (Normal); Potassium 3.7 mmol/L (3.5-5.1)
[2019-03-29] MEDS: MULTIVITAMIN TAB PO SCH (07:38)
[2019-03-29] MEDS: ASPIRIN 81 MG ECTAB PO SCH (07:38)
[2019-03-29] MEDS: OXYBUTYNIN CHLORIDE 5 MG TAB PO SCH ×2 (07:38→20:52)
[2019-03-29] MEDS: ASCORBIC ACID 500 MG TAB PO SCH (07:38)
[2019-03-29] MEDS: ESCITALOPRAM OXALATE 20 MG TAB PO SCH (07:38)
[2019-03-29] MEDS: PANTOprazole 40 MG TAB PO SCH (07:39)
[2019-03-29] MEDS: FLUTICASONE PROPIONATE NA SPR 16 GM BTL SCH (07:39)
[2019-03-29] MEDS: FERROUS SULFATE 325 MG TAB PO SCH (07:40)
[2019-03-29] MEDS: INSULIN ASPART 100 UNITS/ML 3 ML PEN SC SCH ×4 (08:22→22:22)
--- NOTE | 2019-03-29 19:14 | Hospitalist Progress Note ---
Date of Service March 29, 2019 Assessment & Plan (1) Ambulatory dysfunction: Ambulatory Dysfunction Cerebral Palsy Osteoarthritis Possible right ankle sprain Fall CT right leg: No acute fracture within the right tibia or fibula. Calcific tendinitis of the right Achilles. Moderate right knee osteoarthritis. PT/OT eval Normal CK levels Not safe to be discharged home Continue physical therapy Plan to discharge once accepted at alf facility DM II: Well Controlled A1C:6.5 Hold metformin, Trulicity Continue Insulin therapy continue gabapentin Hypothyroidism Normal TSH continue levothyroxine Morbid Obesity BMI:53 VIDA: Fibromyalgia: Continue Trazodone DVT Px: Lovenox SQ Code Status Full Code Disposition: Rehab Placement once accepted Subjective Patient is seen and examined at bedside Complains of right knee pain today No other complaints Chronic cough which is unchanged Denies any chest pain, shortness of breath, dizziness Offers no other complaints Waiting for placement Review of Systems Review of Systems: All systems reviewed & are unremarkable except as noted in HPI & below Physical Exam Physical Exam: Physical Exam: Vitals signs as noted above General Appearance:Morbidly Obese, no apparent distress Head: normocephalic, Atraumatic Eyes: normal inspection, EOMI Neck: supple, Trachea midline Respiratory/Chest: Normal breath sounds, CTA Cardiovascular: S1, S2, No murmur Abdomen/GI:Soft, Non tender, Bowel sounds present Extremities/Musculoskelatal:normal inspection, 1+ B/L pedal edema Neurologic/Psych:AAOX3, grossly no focal neurological deficits Skin: normal color, warm Results & Data Vital Signs (Past 12 Hours) Vital Signs Temp Pulse Resp BP Pulse Ox 03/29/19 15:00 36.4 C L 72 18 107/58 L 90 03/29/19 09:42 114/68 03/29/19 07:30 36.5 C 68 20 98/67 L 92 Laboratory Results Short CBC 03/29/19 Range/Units 05:47 WBC 2.88 L (4.8-10.8) K/uL Hgb 10.0 L (12.0-16.0) g/dL Hct 33.0 L (37-47) % Plt Count 89 L (130-400) K/uL BMP 03/29/19 05:47 Sodium 142 Potassium 3.7 Chloride 109 H Carbon Dioxide 28 BUN 13 Creatinine 0.79 Glucose 133 H Calcium 8.6
[2019-03-29] MEDS: ATORVASTATIN 40 MG TAB PO SCH (20:52)
[2019-03-29] MEDS: TRAZODONE HCL 50 MG TAB PO SCH (20:52)
[2019-03-29] MEDS: CYCLOBENZAPRINE HCL 10 MG TAB PO SCH (20:53)
[2019-03-29] MEDS: GABAPENTIN 300 MG CAP PO SCH (20:53)
[2019-03-29] MEDS: ENOXAPARIN INJ 40 MG/0.4 ML SYR SQ SCH (20:54)
[2019-03-30 06:07] LABS: Mean Corpuscular Hgb Conc 30.6 g/dL (32-36)
[2019-03-30] MEDS: LEVOTHYROXINE SODIUM 150 MCG TABLET PO SCH (06:07)
[2019-03-30 06:19] LABS: Hematocrit (blood only) 33.7 % (37-47); Hemoglobin 10.3 g/dL (12.0-16.0); Mean Corpuscular Volume 93.6 fL (80-100); RDW Coefficient of Variation 22.2 % (11.5-14.5); RDW Standard Deviation 76.8 fL (36.4-46.3); White Blood Count 3.25 K/uL (4.8-10.8)
[2019-03-30 06:34] LABS: Platelet Count 77 K/uL (130-400); Platelet Estimate Decreased (Normal)
[2019-03-30] MEDS: MULTIVITAMIN TAB PO SCH (08:22)
[2019-03-30] MEDS: FERROUS SULFATE 325 MG TAB PO SCH (08:23)
[2019-03-30] MEDS: PANTOprazole 40 MG TAB PO SCH (08:23)
[2019-03-30] MEDS: ESCITALOPRAM OXALATE 20 MG TAB PO SCH (08:24)
[2019-03-30] MEDS: OXYBUTYNIN CHLORIDE 5 MG TAB PO SCH ×2 (08:24→20:39)
[2019-03-30] MEDS: ASCORBIC ACID 500 MG TAB PO SCH (08:24)
[2019-03-30] MEDS: ASPIRIN 81 MG ECTAB PO SCH (08:25)
[2019-03-30] MEDS: IBUPROFEN 200 MG TAB PO PRN (08:25)
[2019-03-30] MEDS: INSULIN ASPART 100 UNITS/ML 3 ML PEN SC SCH ×4 (08:29→20:43)
[2019-03-30] MEDS: FLUTICASONE PROPIONATE NA SPR 16 GM BTL SCH (08:29)
[2019-03-30] MEDS: ACETAMINOPHEN 325 MG TAB PO PRN (13:06)
--- NOTE | 2019-03-30 16:30 | Hospitalist Progress Note ---
Date of Service March 30, 2019 Assessment & Plan (1) Ambulatory dysfunction: Ambulatory Dysfunction Cerebral Palsy Osteoarthritis Possible right ankle sprain Fall CT right leg: No acute fracture within the right tibia or fibula. Calcific tendinitis of the right Achilles. Moderate right knee osteoarthritis. PT/OT eval Normal CK levels Not safe to be discharged home Continue physical therapy Plan to discharge once accepted at [facility] Continue current management DM II: Well Controlled A1C:6.5 Hold metformin, Trulicity Adjusted Insulin therapy continue gabapentin Monitor BGs Hypothyroidism Normal TSH continue levothyroxine Morbid Obesity BMI:53 VIDA: Fibromyalgia: Continue Trazodone DVT Px: Lovenox SQ Code Status Full Code Disposition: Rehab Placement once accepted Subjective Patient is seen and examined at bedside No new complaints Right knee/ankle pain is controlled Denies any chest pain, shortness of breath, dizziness Offers no other complaints Waiting for placement Review of Systems Review of Systems: All systems reviewed & are unremarkable except as noted in HPI & below Physical Exam Physical Exam: Physical Exam: Vitals signs as noted above General Appearance:Morbidly Obese, no apparent distress Head: normocephalic, Atraumatic Eyes: normal inspection, EOMI Neck: supple, Trachea midline Respiratory/Chest: Normal breath sounds, CTA Cardiovascular: S1, S2, No murmur Abdomen/GI:Soft, Non tender, Bowel sounds present Extremities/Musculoskelatal:normal inspection, 1+ B/L pedal edema Neurologic/Psych:AAOX3, grossly no focal neurological deficits Skin: normal color, warm Results & Data Vital Signs (Past 12 Hours) Vital Signs Temp Pulse Resp BP Pulse Ox 03/30/19 07:17 36.5 C 74 20 114/71 92 Laboratory Results Short CBC 03/30/19 Range/Units 05:42 WBC 3.25 L (4.8-10.8) K/uL Hgb 10.3 L (12.0-16.0) g/dL Hct 33.7 L (37-47) % Plt Count 77 L (130-400) K/uL
[2019-03-30] MEDS: CYCLOBENZAPRINE HCL 10 MG TAB PO SCH (20:38)
[2019-03-30] MEDS: ATORVASTATIN 40 MG TAB PO SCH (20:38)
[2019-03-30] MEDS: GABAPENTIN 300 MG CAP PO SCH (20:38)
[2019-03-30] MEDS: TRAZODONE HCL 50 MG TAB PO SCH (20:39)
[2019-03-30] MEDS: INSULIN GLARGINE SOLOSTAR 100 UNITS/ML 3 ML PEN SQ SCH (20:42)
[2019-03-30] MEDS: ENOXAPARIN INJ 40 MG/0.4 ML SYR SQ SCH (20:43)
[2019-03-31] MEDS: LEVOTHYROXINE SODIUM 150 MCG TABLET PO SCH (06:30)
[2019-03-31] MEDS: ASCORBIC ACID 500 MG TAB PO SCH (08:41)
[2019-03-31] MEDS: PANTOprazole 40 MG TAB PO SCH (08:41)
[2019-03-31] MEDS: MULTIVITAMIN TAB PO SCH (08:41)
[2019-03-31] MEDS: FLUTICASONE PROPIONATE NA SPR 16 GM BTL SCH (08:41)
[2019-03-31] MEDS: OXYBUTYNIN CHLORIDE 5 MG TAB PO SCH ×2 (08:41→20:16)
[2019-03-31] MEDS: FERROUS SULFATE 325 MG TAB PO SCH (08:41)
[2019-03-31] MEDS: ASPIRIN 81 MG ECTAB PO SCH (08:41)
[2019-03-31] MEDS: ESCITALOPRAM OXALATE 20 MG TAB PO SCH (08:41)
[2019-03-31] MEDS: INSULIN ASPART 100 UNITS/ML 3 ML PEN SC SCH ×4 (08:43→20:25)
[2019-03-31] MEDS: IBUPROFEN 200 MG TAB PO PRN (16:39)
--- NOTE | 2019-03-31 18:39 | Hospitalist Progress Note ---
Date of Service March 31, 2019 Assessment & Plan (1) Ambulatory dysfunction: Ambulatory Dysfunction Cerebral Palsy Osteoarthritis Possible right ankle sprain Fall CT right leg: No acute fracture within the right tibia or fibula. Calcific tendinitis of the right Achilles. Moderate right knee osteoarthritis. PT/OT eval Normal CK levels Not safe to be discharged home Continue physical therapy Plan to discharge once accepted at [facility] Leg pain is controlled today DM II: Well Controlled A1C:6.5 Hold metformin, Trulicity Adjusted Insulin therapy continue gabapentin Monitor BGs Hypothyroidism Normal TSH continue levothyroxine Morbid Obesity BMI:53 VIDA: Fibromyalgia: Continue Trazodone DVT Px: Lovenox SQ Code Status Full Code Disposition: Rehab Placement once accepted Subjective Patient is seen and examined at bedside Leg pain is well controlled today Offers no other complaints Denies any chest pain, shortness of breath, dizziness Offers no other complaints Waiting for placement Review of Systems Review of Systems: All systems reviewed & are unremarkable except as noted in HPI & below Physical Exam Physical Exam: Physical Exam: Vitals signs as noted above General Appearance:Morbidly Obese, no apparent distress Head: normocephalic, Atraumatic Eyes: normal inspection, EOMI Neck: supple, Trachea midline Respiratory/Chest: Normal breath sounds, CTA Cardiovascular: S1, S2, No murmur Abdomen/GI:Soft, Non tender, Bowel sounds present Extremities/Musculoskelatal:normal inspection, 1+ B/L pedal edema Neurologic/Psych:AAOX3, grossly no focal neurological deficits Skin: normal color, warm Results & Data Vital Signs (Past 12 Hours) Vital Signs Temp Pulse Resp BP Pulse Ox 03/31/19 15:11 37.0 C 84 20 109/74 91 03/31/19 07:26 36.7 C 64 20 112/70 93
[2019-03-31] MEDS: TRAZODONE HCL 50 MG TAB PO SCH (20:16)
[2019-03-31] MEDS: ATORVASTATIN 40 MG TAB PO SCH (20:16)
[2019-03-31] MEDS: GABAPENTIN 300 MG CAP PO SCH (20:17)
[2019-03-31] MEDS: CYCLOBENZAPRINE HCL 10 MG TAB PO SCH (20:18)
[2019-03-31] MEDS: INSULIN GLARGINE SOLOSTAR 100 UNITS/ML 3 ML PEN SQ SCH (20:24)
[2019-03-31] MEDS: ENOXAPARIN INJ 40 MG/0.4 ML SYR SQ SCH (20:24)
[2019-04-01] MEDS: LEVOTHYROXINE SODIUM 150 MCG TABLET PO SCH (06:47)
[2019-04-01] MEDS: MULTIVITAMIN TAB PO SCH (08:44)
[2019-04-01] MEDS: OXYBUTYNIN CHLORIDE 5 MG TAB PO SCH ×2 (08:44→21:41)
[2019-04-01] MEDS: FERROUS SULFATE 325 MG TAB PO SCH (08:44)
[2019-04-01] MEDS: ESCITALOPRAM OXALATE 20 MG TAB PO SCH (08:44)
[2019-04-01] MEDS: PANTOprazole 40 MG TAB PO SCH (08:44)
[2019-04-01] MEDS: ASPIRIN 81 MG ECTAB PO SCH (08:44)
[2019-04-01] MEDS: FLUTICASONE PROPIONATE NA SPR 16 GM BTL SCH (08:44)
[2019-04-01] MEDS: ASCORBIC ACID 500 MG TAB PO SCH (08:44)
[2019-04-01] MEDS: INSULIN ASPART 100 UNITS/ML 3 ML PEN SC SCH ×4 (08:48→21:42)
[2019-04-01] MEDS: IBUPROFEN 200 MG TAB PO PRN (13:16)
--- NOTE | 2019-04-01 17:28 | Hospitalist Progress Note ---
Date of Service April 01, 2019 Assessment & Plan (1) Ambulatory dysfunction: Ambulatory Dysfunction Cerebral Palsy Osteoarthritis Possible right ankle sprain Fall CT right leg: No acute fracture within the right tibia or fibula. Calcific tendinitis of the right Achilles. Moderate right knee osteoarthritis. PT/OT eval Normal CK levels Not safe to be discharged home Continue physical therapy Leg pain improved Waiting for placement to SNF DM II: Well Controlled A1C:6.5 Hold metformin, Trulicity Adjusted Insulin therapy continue gabapentin Monitor BGs Hypothyroidism Normal TSH continue levothyroxine Pancytopenia Chronic Follow-up as outpatient Morbid Obesity BMI:53 VIDA: Fibromyalgia: Continue Trazodone DVT Px: SCDs Re: Thrombocytopenia Code Status Full Code Disposition: Rehab Placement once accepted Subjective Patient is seen and examined at bedside No new complaints Waiting for placement Leg pain improved Denies any chest pain, shortness of breath, dizziness Review of Systems Review of Systems: All systems reviewed & are unremarkable except as noted in HPI & below Physical Exam Physical Exam: Physical Exam: Vitals signs as noted above General Appearance:Morbidly Obese, no apparent distress Head: normocephalic, Atraumatic Eyes: normal inspection, EOMI Neck: supple, Trachea midline Respiratory/Chest: Normal breath sounds, CTA Cardiovascular: S1, S2, No murmur Abdomen/GI:Soft, Non tender, Bowel sounds present Extremities/Musculoskelatal:normal inspection, 1+ B/L pedal edema Neurologic/Psych:AAOX3, grossly no focal neurological deficits Skin: normal color, warm Results & Data Vital Signs (Past 12 Hours) Vital Signs Temp Pulse Resp BP Pulse Ox 04/01/19 15:56 36.4 C L 86 22 108/67 93 04/01/19 07:27 36.6 C 68 20 124/73 94
[2019-04-01] MEDS: TRAZODONE HCL 50 MG TAB PO SCH (21:41)
[2019-04-01] MEDS: CYCLOBENZAPRINE HCL 10 MG TAB PO SCH (21:41)
[2019-04-01] MEDS: GABAPENTIN 300 MG CAP PO SCH (21:41)
[2019-04-01] MEDS: ATORVASTATIN 40 MG TAB PO SCH (21:41)
[2019-04-01] MEDS: INSULIN GLARGINE SOLOSTAR 100 UNITS/ML 3 ML PEN SQ SCH (21:41)
[2019-04-02 05:26] LABS: Mean Corpuscular Hgb Conc 31.2 g/dL (32-36)
[2019-04-02 05:37] LABS: Hematocrit (blood only) 32.4 % (37-47); Hemoglobin 10.1 g/dL (12.0-16.0); Mean Corpuscular Volume 93.9 fL (80-100); RDW Coefficient of Variation 22.5 % (11.5-14.5); RDW Standard Deviation 78.2 fL (36.4-46.3); Red Blood Count 3.45 M/uL (4.2-5.4); White Blood Count 3.14 K/uL (4.8-10.8)
[2019-04-02] MEDS: LEVOTHYROXINE SODIUM 150 MCG TABLET PO SCH (05:42)
[2019-04-02 05:58] LABS: Platelet Count 93 K/uL (130-400)
[2019-04-02 05:59] LABS: Platelet Estimate Decreased (Normal)
[2019-04-02] MEDS: PANTOprazole 40 MG TAB PO SCH (08:54)
[2019-04-02] MEDS: ASCORBIC ACID 500 MG TAB PO SCH (08:54)
[2019-04-02] MEDS: MULTIVITAMIN TAB PO SCH (08:54)
[2019-04-02] MEDS: OXYBUTYNIN CHLORIDE 5 MG TAB PO SCH ×2 (08:54→21:42)
[2019-04-02] MEDS: ESCITALOPRAM OXALATE 20 MG TAB PO SCH (08:54)
[2019-04-02] MEDS: ASPIRIN 81 MG ECTAB PO SCH (08:55)
[2019-04-02] MEDS: FERROUS SULFATE 325 MG TAB PO SCH (08:55)
[2019-04-02] MEDS: INSULIN ASPART 100 UNITS/ML 3 ML PEN SC SCH ×4 (08:58→21:38)
[2019-04-02] MEDS: FLUTICASONE PROPIONATE NA SPR 16 GM BTL SCH (08:58)
--- NOTE | 2019-04-02 17:57 | Hospitalist Progress Note ---
Date of Service April 02, 2019 Assessment & Plan (1) Ambulatory dysfunction: Ambulatory Dysfunction Cerebral Palsy Osteoarthritis Possible right ankle sprain Fall CT right leg: No acute fracture within the right tibia or fibula. Calcific tendinitis of the right Achilles. Moderate right knee osteoarthritis. PT/OT eval Normal CK levels Not safe to be discharged home Continue physical therapy Leg pain improved Waiting for placement to SNF Discussed with [facility] today DM II: Well Controlled A1C:6.5 Hold metformin, Trulicity Adjusted Insulin therapy continue gabapentin Monitor BGs Hypothyroidism Normal TSH continue levothyroxine Pancytopenia Chronic Follow-up as outpatient Morbid Obesity BMI:53 VIDA: Fibromyalgia: Continue Trazodone DVT Px: SCDs Re: Thrombocytopenia Code Status Full Code Disposition: Plan to discharge to longterm facility when accepted Case management on board Subjective Patient is seen and examined at bedside Expresses frustration regarding SNF placement issues No new complaints Family at bedside Denies Leg pain Also denies any chest pain, shortness of breath, dizziness Review of Systems Review of Systems: All systems reviewed & are unremarkable except as noted in HPI & below Physical Exam Physical Exam: Physical Exam: Vitals signs as noted above General Appearance:Morbidly Obese, no apparent distress Head: normocephalic, Atraumatic Eyes: normal inspection, EOMI Neck: supple, Trachea midline Respiratory/Chest: Normal breath sounds, CTA Cardiovascular: S1, S2, No murmur Abdomen/GI:Soft, Non tender, Bowel sounds present Extremities/Musculoskelatal:normal inspection, 1+ B/L pedal edema Neurologic/Psych:AAOX3, grossly no focal neurological deficits Skin: normal color, warm Results & Data Vital Signs (Past 12 Hours) Vital Signs Temp Pulse Resp BP BP Pulse Ox 04/02/19 15:33 36.7 C 82 20 111/72 91 04/02/19 07:30 36.5 C 59 L 20 119/71 94 Laboratory Results Short CBC 04/02/19 Range/Units 05:02 WBC 3.14 L (4.8-10.8) K/uL Hgb 10.1 L (12.0-16.0) g/dL Hct 32.4 L (37-47) % Plt Count 93 L (130-400) K/uL
[2019-04-02] MEDS: ACETAMINOPHEN 325 MG TAB PO PRN (20:20)
[2019-04-02] MEDS: INSULIN GLARGINE SOLOSTAR 100 UNITS/ML 3 ML PEN SQ SCH (21:39)
[2019-04-02] MEDS: TRAZODONE HCL 50 MG TAB PO SCH (21:41)
[2019-04-02] MEDS: ATORVASTATIN 40 MG TAB PO SCH (21:42)
[2019-04-02] MEDS: CYCLOBENZAPRINE HCL 10 MG TAB PO SCH (21:42)
[2019-04-02] MEDS: GABAPENTIN 300 MG CAP PO SCH (21:43)
[2019-04-03] MEDS: LEVOTHYROXINE SODIUM 150 MCG TABLET PO SCH (05:57)
[2019-04-03] MEDS: ASPIRIN 81 MG ECTAB PO SCH (08:09)
[2019-04-03] MEDS: OXYBUTYNIN CHLORIDE 5 MG TAB PO SCH (08:09)
[2019-04-03] MEDS: ESCITALOPRAM OXALATE 20 MG TAB PO SCH (08:09)
[2019-04-03] MEDS: ASCORBIC ACID 500 MG TAB PO SCH (08:10)
[2019-04-03] MEDS: FLUTICASONE PROPIONATE NA SPR 16 GM BTL SCH (08:10)
[2019-04-03] MEDS: MULTIVITAMIN TAB PO SCH (08:10)
[2019-04-03] MEDS: PANTOprazole 40 MG TAB PO SCH (08:10)
[2019-04-03] MEDS: FERROUS SULFATE 325 MG TAB PO SCH (08:10)
[2019-04-03] MEDS: INSULIN ASPART 100 UNITS/ML 3 ML PEN SC SCH ×2 (08:51→13:15)
--- NOTE | 2019-04-03 09:58 | Hospitalist Progress Note ---
Date of Service April 03, 2019 Assessment & Plan (1) Ambulatory dysfunction: Ambulatory Dysfunction Cerebral Palsy Osteoarthritis Possible right ankle sprain Fall CT right leg: No acute fracture within the right tibia or fibula. Calcific tendinitis of the right Achilles. Moderate right knee osteoarthritis. PT/OT eval Normal CK levels Not safe to be discharged home Continue physical therapy Waiting for placement to SNF Neck pain improved but still has balance issues DM II: Well Controlled A1C:6.5 Hold metformin, Trulicity Adjusted Insulin therapy continue gabapentin Monitor BGs Hypothyroidism Normal TSH continue levothyroxine Pancytopenia Chronic Follow-up as outpatient Morbid Obesity BMI:53 VIDA: Fibromyalgia: Continue Trazodone DVT Px: SCDs Re: Thrombocytopenia Code Status Full Code Disposition: Plan to discharge to long-term facility when accepted Case management following Subjective Patient is seen and examined at bedside Having her breakfast this morning Doing well today No new complaints Denies Leg pain today Also denies any chest pain, shortness of breath, dizziness, nausea, abd pain Waiting for insurance authorization to be approved Review of Systems Review of Systems: All systems reviewed & are unremarkable except as noted in HPI & below Physical Exam Physical Exam: Physical Exam: Vitals signs as noted above General Appearance:Morbidly Obese, no apparent distress Head: normocephalic, Atraumatic Eyes: normal inspection, EOMI Neck: supple, Trachea midline Respiratory/Chest: Normal breath sounds, CTA Cardiovascular: S1, S2, No murmur Abdomen/GI:Soft, Non tender, Bowel sounds present Extremities/Musculoskelatal:normal inspection, 1+ B/L pedal edema Neurologic/Psych:AAOX3, grossly no focal neurological deficits Skin: normal color, warm Results & Data Vital Signs (Past 12 Hours) Vital Signs Temp Pulse Resp BP Pulse Ox 04/03/19 07:41 36.8 C 63 20 109/72 93 04/02/19 23:38 36.6 C 72 16 103/63 91
--- NOTE | 2019-04-03 10:14 | Discharge Summary ---
Date of Service April 03, 2019 Admission HPI Per Admitting Provider This is a 63 year old female who has been having progressive declines in ambulation, reports history of cerebral palsy who was at her [facility] when she believes she fell after twisting her right ankle. Patient was evaluated in the emergency department and no acute fractures on imaging. At baseline, patient reports that she uses a walker. 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 Patient did not appeared to ahve loss consciousness any time since the initial fall but when evaluated by ED provider, main concern of her not being able to ambulate to leave the emergency department. On exam of admitting hospitalist, patient appears comfortable. She denies acute pain. No tenderness of the lower extremities. Perhaps some milder swelling of the right leg compared to the left leg. However both lower extremities are symmetrically weak on exam when laying on the bed. Patient denies fever, no chest pain, no shortness of breath, no palpitations, no abdomen pain, no dizziness, no headache, no back pain, no problems with bowel or urine output denies family history of health problems as per patient allergies are to penicillin which causes rash Primary Care Provider: Rajwinder Carter, DO Admission Exam Per Admitting Provider Constitutional: + obese Eyes: PERRL, conjunctivae normal, anicteric sclerae EOM intact bilaterally ENMT: external ear and nose normal, oropharynx normal Neck: trachea midline, no thyromegaly Respiratory: normal respiratory effort, lungs clear to auscultation Cardiovascular: Rate/Rhythm: regular rate and regular rhythm Gastrointestinal (Abdomen): normal bowel sounds, soft, nontender, no hepatosplenomegaly Musculoskeletal: Head/Neck/Chest: normocephalic and head atraumatic no acute tenderness of the legs. patient has equally diminished strength of the legs when laying flat on the back, mild more swollen right leg than left leg Neurologic: PERRL, EOMI, accommodation nl, no face palsy, no dysarthria Psychiatric: A+Ox3, euthymic affect Principal Diagnosis Discharge Information Discharge Diagnosis Ambulatory dysfunction Chronic Pancytopenia Discharge Goals Decrease discomfort,Improve disease control, Improve function Discharge Activity Limitations Resume your previous activity Discharge Data Allergies Allergy/AdvReac Type Severity Reaction Status Date / Time Penicillins Allergy Intermediate HIVES Verified 03/27/19 13:43 Consultations 03/27/19 16:17 ED Decision to Admit Stat 07/17/19 16:58 Consult Case Management - Discharge Planning Routine Procedures Performed R Knee X ray: 1. Technically limited study from positioning standpoint 2. No acute fractures identified 3. Moderate osteoarthritic change Hip and Pelvic X ray: Moderate degenerative change. No acute bony abnormality. Ankle X ray: Mild degenerative change and osteopenia. No acute bony abnormality. R leg CT: 1. No acute fracture within the right tibia or fibula. 2. Calcific tendinitis of the right Achilles. 3. Moderate right knee osteoarthritis. Ordered Studies 03/27/19 14:09 CT tib/fib RT wo con Stat Hospital Course (1) Ambulatory dysfunction: Ambulatory Dysfunction Cerebral Palsy Osteoarthritis Possible right ankle sprain Fall CT right leg: No acute fracture within the right tibia or fibula. Calcific tendinitis of the right Achilles. Moderate right knee osteoarthritis. PT/OT eval Normal CK levels Not safe to be discharged home Continue physical therapy Waiting for placement to SNF Neck pain improved but still has balance issues DM II: Well Controlled A1C:6.5 Hold metformin, Trulicity Adjusted Insulin therapy continue gabapentin Monitor BGs Hypothyroidism Normal TSH continue levothyroxine Pancytopenia Chronic Follow-up as outpatient Morbid Obesity BMI:53 VIDA: Fibromyalgia: Continue Trazodone DVT Px: SCDs Re: Thrombocytopenia Code Status Full Code Disposition: Plan to discharge to long term facility when accepted Case management following Total Time Total Time Spent Total Time Spent (In Minutes): 37 minutes Total Time Includes: Examination of the Patient, Discharge Planning, Medication Reconciliation, Communication With Other Providers and Other Discharge Plan Discharge Items Patient Disposition: Transfer [facility] Reason For Visit: ABULATORY DYSFUNTION,MORBID OBESITY,CEREBAL PALSY Discharge Diagnosis: Ambulatory dysfunction Chronic Pancytopenia Discharge Goals: Decrease discomfort, Improve disease control and Improve function Activity: Resume your previous activity Exercise/Sports: Gradually increase as tolerated Non-emergency contact: Primary Care Provider Call non-emergency contact if: you have any medication questions, your symptoms worsen, your pain is not controlled, your pain is worsening, your pain is unusual for you and you have a fever Follow-up/Referrals: Rajwinder Carter DO [Primary Care Provider] - Diet: Carb Consistent or DM2 Addtl Provider Instructions: Follow-up with your primary care physician Dr. Carter in 1 week after being discharged from rehab facility Seek immediate medical attention if your symptoms reoccur or worsen Prescriptions: Continued gabapentin 300 mg capsule 600 mg PO HS RF: 0 escitalopram oxalate 20 mg tablet 20 mg PO QAM RF: 0 fluticasone propionate [Flonase Allergy Relief] 50 mcg/actuation [place],Suspension 2 spray Intranasal QAM RF: 0 Centrum Silver 0.4-300-250 mg-mcg-mcg Tablet 1 tab PO QAM RF: 0 cyclobenzaprine 10 mg Tablet 10 mg PO HS RF: 0 atorvastatin 40 mg Tablet 40 mg PO HS RF: 0 trazodone 50 mg Tablet 50 mg PO HS RF: 0 potassium chloride 10 mEq Tablet Extended Release 10 meq PO QAM RF: 0 fexofenadine [Danita Allergy] 180 mg Tablet 180 mg PO QAM PRN (Reason: Allergy Symptoms) RF: 0 aspirin [Aspir-81] 81 mg Tablet,Delayed Release (Dr/Ec) 81 mg PO QAM RF: 0 ascorbic acid (vitamin C) [Vitamin C] 500 mg Tablet 500 mg PO QAM RF: 0 metformin 1,000 mg Tablet 1,000 mg PO BIDM RF: 0 levothyroxine 150 mcg Tablet 150 mcg PO QAM RF: 0 gabapentin 300 mg Capsule 300 mg PO UD RF: 0 omeprazole 20 mg Capsule,Delayed Release(Dr/Ec) 20 mg PO QAM RF: 0 furosemide [Lasix] 20 mg Tablet 20 mg PO QAM PRN (Reason: Edema) RF: 0 oxybutynin chloride 5 mg Tablet 5 mg PO BID RF: 0 Lantus Solostar U-100 Insulin 100 unit/mL (3 mL) Insulin Pen 24 unit SUBCUT HS RF: 0 dulaglutide 1.5 mg/0.5 mL Pen Injector 1.5 mg subcut WK RF: 0 ferrous sulfate 325 mg (65 mg iron) Tablet 325 mg PO QAM RF: 0 Stand-Alone Forms: My [facility] Skilled Items Patient informed of condition?: Yes DNR: No Discharge Level of Care: Skilled Communicable Disease: No Discharge Prognosis: Improving Admission Data Admit Date/Time: 03/29/19 08:46 Attending Provider: Que Dale Admit Provider: Edgar Rose Primary Care Provider: Rajwinder Carter Other Providers: Edgar Rose Service: Medical Other Pending Studies at Discharge: No
--- NOTE | 2019-04-04 11:32 | Coding Query ---
CODING QUERY To promote full compliance with coding requirements relating to patient care, provider participation is requested in all cases of rainbow [employer] farm manager uncertainty. Please assist us with the question(s) below: Coding Question(s): Patient admitted with repeat falls at home, sustaining sprained ankle and contusion leg. Patient morbidly obese , cerebral palsy with moderate osteoarthritis . Please document, if known or suspected, the etiology for the ambulatory dysfunction. Thanks for your help! Jaime Cannon PERMIT SPECIALIST [facility] Physician's Response(s): Ambulatory dysfunction could be multifactorial: Sprained ankle and morbid Obesity Principal Diagnosis: "that condition established after study, to be chiefly responsible for occasioning the admission of the patient to the hospital for care." Co-Existing Principal Diagnosis: "when two or more diagnoses equally meet the criteria for principal diagnosis as determined by the circumstances of admission, diagnostic work up, and/or therapy provided, and the Alphabetic Index, Tabular List, or another coding guideline does not provide sequencing direction, any one of the diagnoses may be sequenced first." "When the physician has documented what appears to be a current diagnosis in the body of the record, but has not included the diagnosis in the final diagnostic statement, the physician should be asked whether the diagnosis should be added." (Source Coding [facility] 2 QTR90. p3-4) [facility]
== END 2019-04-03 16:15 | DRG 563 ==
LOC: ED 13:03 → 4W 13:03 → SUATTDRO 16:29 → 4W 17:42 → SUATTDRO 03-29 08:46

== ENCOUNTER 2019-04-21 23:04 | Inpatient (IN) ==
[2019-04-22] MEDS ORDERED: IBUPROFEN 600 MG TAB PO STA (00:19)
[2019-04-22] MEDS ORDERED: ACETAMINOPHEN 500 MG TAB PO STA (00:19)
[2019-04-22 01:25] LABS: BUN Creatinine Ratio 17.2 (10-20); Calcium 8.9 mg/dl (8.5-10.1); Creatinine Clr Calc Pharmacy 75.9 ml/min; Est GFR (Non-African American) 69.9
[2019-04-22 02:24] LABS: Anisocytosis Present; Basophils # (auto) 0.03 K/uL (0-0.2); Basophils % (auto) 0.7 %; Eosinophils # (auto) 0.31 K/uL (0-0.5); Eosinophils % (auto) 6.7 %; Hematocrit (blood only) 33.3 % (37-47); Hemoglobin 10.5 g/dL (12.0-16.0); Immature Granulocytes # (auto) 0.01 K/uL (0.00-0.02); Immature Granulocytes % (auto) 0.2 %; Lymphocytes # (auto) 1.38 K/uL (1.2-3.4); Lymphocytes % (auto) 29.9 %; Monocytes # (auto) 0.39 K/uL (0.11-0.59); Monocytes % (auto) 8.5 %; Neutrophils # (auto) 2.49 K/uL (1.4-6.5); Platelet Count 79 K/uL (130-400); Platelet Estimate Decreased (Normal); RDW Standard Deviation 70.4 fL (36.4-46.3); Red Blood Count 3.47 M/uL (4.2-5.4); Schistocytes 1+; Tear Drop Cells 1+; White Blood Count 4.61 K/uL (4.8-10.8)
[2019-04-22] MEDS ORDERED: FEXOFENADINE HCL 180 MG TAB PO PRN (02:54)
[2019-04-22] MEDS ORDERED: POLYETHYLENE (MIRALAX) 17 GM PACK PO PRN (02:54)
[2019-04-22] MEDS ORDERED: ONDANSETRON INJ 2 MG/ML 2 ML VIAL IV PRN (02:54)
--- NOTE | 2019-04-22 02:58 | Emergency Department Note ---
Entered by Gume Padrno acting as a scribe for ED Provider Note Name: Shaina Bustos Age: 63, female Arrives Via: EMS Informant: Patient CC: Right knee pain HPI: The patient is a 63 year old female who presents to the emergency department with complaints of constant right knee pain following a fall occurring tonight. The patient states that she fell while transitioning from her wheelchair into her bed tonight. She notes that she is primarily having right knee pain, left knee pain, and left ankle pain following the fall; however, she reports that both of her legs hurt all over. The patient states that she also fell yesterday. She denies any left hip pain. She notes that she was released from a rehabilitation home two days ago. ROS: See above HPI for pertinent positives & negatives. A total of 6 systems reviewed and were otherwise negative. Past Medical History: Cerebral palsy, fibromyalgia, hypothyroidism, asthma, diabetes, hypertension, anxiety, depression, kidney stones Past Surgical History: section, EGD Family History: Diabetes Social History: , lives with spouse, does not use alcohol and drugs Home Medications: Please see medication list Allergies: Penicillins Physical: Vitals: BP 129/60, Pulse 70, Resp 18, Temp 98.1 F, O2 Sat 93 Exam: GENERAL: Patient is morbidly obese and in mild distress. EYES: No scleral icterus, unremarkable pupils. NECK: No masses appreciated, no meningismus, trachea is midline. RESPIRATORY: No dyspnea. Clear to auscultation and equal bilaterally. No wheeze, no rhonchi. CARDIOVASCULAR: Regular rate and rhythm. No murmurs, rubs, gallops appreciated. GASTROINTESTINAL: Abdomen soft, non-tender, no peritonitis. Bowel sounds positive. No masses appreciated. EXTREMITIES: No cyanosis, no edema. Vague tenderness everywhere in the bilateral legs, no bruising, no acute deformity appreciated, significantly decreased strength of both legs that is chronic, deformity of feet bilaterally which is chronic. NEUROLOGIC: Alert and oriented, no acute motor or sensory deficits, no focal weakness, cranial nerves grossly intact. SKIN: No rash, no jaundice, no diaphoresis. ED Course: Prior Medical Record, Triage/Nursing Notes, Medications, Allergies reviewed by Me [id number]: The patient was evaluated in room C6. A complete history and physical exam was performed. 0019: I reevaluated and updated the patient. She notes that she is feeling better. She states that she would like some Tylenol and Motrin which she has taken previously without any problems. I offered placement in a rehabilitation facility or admission for placement which the patient and her have declined. The patient would like to try going home. I stressed heavily that she should not try to walk due to her inability to due so. 0026: I rechecked the patient. The patient and her changed their minds and feel as though she is too weak to go home. They state that the patient will continue falling and is unsafe at home. Case management is going to look into rehabilitation facilities. 0037: I reevaluated and updated the patient. She states that she does not feel comfortable going home. Given her insurance, case management was unable to place her in a rehab facility at this time. Dr. Guardado - [facility], was paged. 0039: Upon reevaluation, the patient is stable. I discussed the findings and the treatment plan with the patient. She expresses agreement and understanding. [facility] The patient will be evaluated for further management. Vital Signs: reviewed and remarkable for wnl Labs: Reviewed and remarkable for wnl cbc/bmp Interventions: tylenol 1g po, motrin 600mg po Imaging: LEFT TIBIA/FIBULA X-RAY: Significant arthritic changes throughout no fracture nor dislocation RIGHT TIBIA/FIBULA X-RAY: Significant arthritic changes throughout no fracture nor dislocation RIGHT FEMUR X-RAY: Significant arthritic changes throughout no fracture nor dislocation LEFT FEMUR X-RAY: Significant arthritic changes throughout no fracture nor dislocation PELVIS X-RAY: Significant arthritic changes throughout no fracture nor dislocation Consults: 0039: I reviewed the patient's case with Dr. Guardado - [facility]. He will evaluate the patient for further management. Blood pressure: Elevated - Will be monitored by hospitalist. Disposition: Hospitalization Differentials: Etiologies such as fracture, dislocation, neurovascular comp romise, compartment syndrome, soft tissue injury, as well as others were entertained. Medical Decision Makin yr old female with fall at home. She has multiple medical issues including cerebral palsy resulting in being mostly wheelchair bound however has been walking some in last 48 hours at home since getting out of rehab. She feel again tonight for 2nd time in last 2 days. Diffuse bilateral leg pain though imaging without clear indication of fracture. Initially pt wanted to try going home, but eventually realized she is unable to due to she is unable to get around her house. Discussed with case management and will be brought in to hospitalist service for likely placement. Impression: Ambulatory dysfunction, right knee sprain, left ankle sprain Josh Duron MD The scribe's documentation has been prepared under my direction and personally reviewed by me in its entirety. I confirm that the note above accurately reflects all work, treatment, procedures, and medical decision making performed by me. Impression & Plan Ambulatory dysfunction, Right knee sprain, Left ankle sprain Past Med/Surg History Medical History Fall (Acute) Ambulatory dysfunction (Acute) Contusion of knee, right (Acute) Right knee sprain (Acute) Right ankle sprain (Acute) Ambulatory dysfunction Pancreatic cyst Encounter for pre-operative examination Chronic pain (Chronic) Obesity, morbid (more than 100 lbs over ideal weight or BMI > 40) (Chronic) Urinary catheter dysfunction (Acute) Contusion of leg (Acute) VRE (vancomycin resistant enterococcus) culture positive (Acute) Complicated UTI (urinary tract infection) Acute cystitis Chest pain (Acute) VIDA (generalized anxiety disorder) (Chronic) Major depressive disorder, recurrent, moderate (Chronic) Pleurisy (Acute) Cerebral palsy (Chronic) Fibromyalgia (Chronic) Hypothyroidism (Chronic) NG (nonalcoholic steatohepatitis) (Chronic) Osteoarthritis (Chronic) DM type 2 (diabetes mellitus, type 2) (Chronic) IDDM Asthma (Chronic) DOES NOT USE INH. REPORTS USING NEB TREATMENTS BID. Dyslipidemia (Chronic) Obstructive sleep apnea (Chronic) CPAP + OXYGEN AT 2 LPM @ NIGHT History of migraine (Chronic) Venous insufficiency (Chronic) Bilateral lower extremity edema (Chronic) Anxiety Cardiac murmur Chronic back pain Cough CHRONIC PER PT REPORT Depression GERD (gastroesophageal reflux disease) History of kidney stones Hoarseness of voice CHRONIC PER PT REPORT Hypertension Obesity (BMI 30-39.9) On home oxygen therapy 2 LPM @ NIGHT + CPAP Poor historian SOB (shortness of breath) on exertion Surgical History H/O Achilles tendon repair (Chronic) H/O section (Chronic) History of D&C (Chronic) H/O wisdom tooth extraction (Chronic) History of Achilles tendon repair History of section History of colonoscopy History of dilatation and curettage History of esophagogastroduodenoscopy (EGD) History of tooth extraction Social History Preferred Language: Japanese Communication Ability: Effective 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 Beliefs That Will Affect Care: None Current Living Situation: Spouse 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 Feels Safe at Home: Yes Smoking Status: Never smoker Second Hand Exposure: Yes (PREVIOUS EXPOSURE) ; Hx Alcohol Use: No Hx Substance Use: No Results & Data Vital Signs Vital Signs - 24 hr 04/21/19 23:12 04/22/19 00:26 Temperature 36.7 C Temperature Source Oral Sepsis Recent Fever Within 48 Hours No Sepsis Action Taken by Nursing No Action Required Pulse Rate 70 Pulse Rate [Right] 73 Pulse Rhythm Regular Pulse Rhythm [Right] Regular Pulse Strength [Right] Normal Respiratory Rate 18 16 Respiratory Effort / Characteristics Non-Labored Spontaneous Non-Labored Spontaneous Respiratory Depth Normal Normal Blood Pressure 129/60 Blood Pressure [Right Arm] 148/90 H Blood Pressure Mean 83 Blood Pressure Mean [Right Arm] 109 Blood Pressure Position Lying Blood Pressure Position [Right Arm] Lying Pulse Oximetry 93 93 Oxygen Delivery Method Room Air Room Air Home Medications Current Medication List: was personally reviewed by me Laboratory Data Attestation: I reviewed the patient's lab results. Result diagrams: 04/22/19 01:39 04/22/19 01:39 Lab Results 04/22/19 04/22/19 04/22/19 Range/Units 00:49 00:49 01:39 WBC Cancelled 4.61 L RBC Cancelled 3.47 L Hgb Cancelled 10.5 L Hct Cancelled 33.3 L MCV Cancelled 96.0 MCH Cancelled 30.3 MCHC Cancelled 31.0 L RDW Std Deviation Cancelled 70.4 H RDW Coeff of Bradley Cancelled 20.0 H Plt Count Cancelled 79 L MPV Cancelled Immature Gran % (Auto) Cancelled 0.2 Neut % (Auto) Cancelled 54.0 Lymph % (Auto) Cancelled 29.9 Archer % (Auto) Cancelled 8.5 Eos % (Auto) Cancelled 6.7 Baso % (Auto) Cancelled 0.7 Immature Gran # (Auto) Cancelled 0.01 Neut # (Auto) Cancelled 2.49 Lymph # (Auto) Cancelled 1.38 Archer # (Auto) Cancelled 0.39 Eos # (Auto) Cancelled 0.31 Baso # (Auto) Cancelled 0.03 Absolute Nucleated RBC Cancelled Nucleated RBC % (auto) Cancelled Neutrophils % (Manual) Cancelled Band Neutrophils % Cancelled Lymphocytes % (Manual) Cancelled Prolymphocyte % Cancelled Reactive Lymphs % (Man) Cancelled Monocytes % (Manual) Cancelled Eosinophils % (Manual) Cancelled Basophils % (Manual) Cancelled Metamyelocytes % (Man) Cancelled Myelocytes % (Man) Cancelled Promyelocytes % (Man) Cancelled Blast Cells % (Manual) Cancelled Plasma Cell % (Manual) Cancelled Other Cells % Cancelled Nucleated RBC % Cancelled Neutrophils # (Manual) Cancelled Band Neutrophils # Cancelled Total Absolute Neuts Cancelled Lymphocytes # (Manual) Cancelled Prolymphocyte # Cancelled Reactive Lymphs # Cancelled Total Abs Lymphocytes Cancelled Monocytes # (Manual) Cancelled Eosinophils # (Manual) Cancelled Basophils # (Manual) Cancelled Metamyelocytes # (Man) Cancelled Myelocytes # (Manual) Cancelled Promyelocytes # (Man) Cancelled Blast Cells # (Man) Cancelled Plasma Cell # (Manual) Cancelled Other Cells # Cancelled Nucleated RBCs # (Man) Cancelled Hypersegmented Neuts Cancelled Hyposegmented Neuts Cancelled Hypogranular Neuts Cancelled Large Granular Lymphs Cancelled # Lrg Granular Lymphs Cancelled Hairy Cells Cancelled Smudge Cells Cancelled Toxic Granulation Cancelled Toxic Vacuolation Cancelled Dohle Bodies Cancelled Ashlyn Rods Cancelled Platelet Estimate Cancelled Decreased L Hypogranular Platelets Cancelled Clumped Platelets Cancelled Giant Platelets Cancelled Platelet Satelliting Cancelled RBC Morphology Cancelled Polychromasia Cancelled Hypochromasia Cancelled Poikilocytosis Cancelled Basophilic Stippling Cancelled Anisocytosis Cancelled Present Microcytosis Cancelled Macrocytosis Cancelled Spherocytes Cancelled Pappenheimer Bodies Cancelled Sickle Cells Cancelled Target Cells Cancelled Tear Drop Cells Cancelled 1+ Ovalocytes Cancelled Stomatocytes Cancelled [place] Bodies Cancelled Echinocytes Cancelled Acanthocytes (Spur) Cancelled Rouleaux Cancelled RBC Agglutinates Cancelled Schistocytes Cancelled 1+ RBC Morph Comment Cancelled Sezary Cell Cancelled Sodium 145 (136-145) mmol/L Potassium (3.5-5.1) mmol/L Chloride 111 H (98-107) mmol/L Carbon Dioxide 26 (21-32) mmol/L Anion Gap 8.0 (3-11) BUN 15 (7-18) mg/dl Creatinine 0.88 (0.6-1.2) mg/dl Est Cr Clr Drug Dosing 75.9 ml/min Est GFR ( Amer) 81.0 Est GFR (Non-Af Amer) 69.9 BUN/Creatinine Ratio 17.2 (10-20) Glucose 157 H (70-99) mg/dl Calcium 8.9 (8.5-10.1) mg/dl 04/22/19 Range/Units 01:39 WBC RBC Hgb Hct MCV MCH MCHC RDW Std Deviation RDW Coeff of Bradley Plt Count MPV Immature Gran % (Auto) Neut % (Auto) Lymph % (Auto) Archer % (Auto) Eos % (Auto) Baso % (Auto) Immature Gran # (Auto) Neut # (Auto) Lymph # (Auto) Archer # (Auto) Eos # (Auto) Baso # (Auto) Absolute Nucleated RBC Nucleated RBC % (auto) Neutrophils % (Manual) Band Neutrophils % Lymphocytes % (Manual) Prolymphocyte % Reactive Lymphs % (Man) Monocytes % (Manual) Eosinophils % (Manual) Basophils % (Manual) Metamyelocytes % (Man) Myelocytes % (Man) Promyelocytes % (Man) Blast Cells % (Manual) Plasma Cell % (Manual) Other Cells % Nucleated RBC % Neutrophils # (Manual) Band Neutrophils # Total Absolute Neuts Lymphocytes # (Manual) Prolymphocyte # Reactive Lymphs # Total Abs Lymphocytes Monocytes # (Manual) Eosinophils # (Manual) Basophils # (Manual) Metamyelocytes # (Man) Myelocytes # (Manual) Promyelocytes # (Man) Blast Cells # (Man) Plasma Cell # (Manual) Other Cells # Nucleated RBCs # (Man) Hypersegmented Neuts Hyposegmented Neuts Hypogranular Neuts Large Granular Lymphs # Lrg Granular Lymphs Hairy Cells Smudge Cells Toxic Granulation Toxic Vacuolation Dohle Bodies Ashlyn Rods Platelet Estimate Hypogranular Platelets Clumped Platelets Giant Platelets Platelet Satelliting RBC Morphology Polychromasia Hypochromasia Poikilocytosis Basophilic Stippling Anisocytosis Microcytosis Macrocytosis Spherocytes Pappenheimer Bodies Sickle Cells Target Cells Tear Drop Cells Ovalocytes Stomatocytes [place] Bodies Echinocytes Acanthocytes (Spur) Rouleaux RBC Agglutinates Schistocytes RBC Morph Comment Sezary Cell Sodium (136-145) mmol/L Potassium 3.9 (3.5-5.1) mmol/L Chloride (98-107) mmol/L Carbon Dioxide (21-32) mmol/L Anion Gap (3-11) BUN (7-18) mg/dl Creatinine (0.6-1.2) mg/dl Est Cr Clr Drug Dosing ml/min Est GFR ( Amer) Est GFR (Non-Af Amer) BUN/Creatinine Ratio (10-20) Glucose (70-99) mg/dl Calcium (8.5-10.1) mg/dl Administered Medications Discontinued Medications Acetaminophen (Tylenol) 1,000 mg PO NOW STA Stop: 04/22/19 00:20 Last Admin: 04/22/19 00:25 Dose: 1,000 mg Documented by: [id number] Ibuprofen (Motrin) 600 mg PO NOW STA Stop: 04/22/19 00:20 Last Admin: 04/22/19 00:25 Dose: 600 mg Documented by: [id number] Discharge Plan Visit Data *Final* Discharge Date/Time: 04/22/19 02:31 Chief Complaint: Leg Injury/Pain Stated Complaint: LEG PAIN/FALL Other Complaint: Fall ED Provider: Josh Duron Discharge Problem: Ambulatory dysfunction, Right knee sprain, Left ankle sprain Patient Disposition: Admitted As Inpatient Discharge Instructions Interventions: ED Discharge Assessment Last Done: 04/22/19 02:31 Discharge Problem: Right knee sprain Qualifiers: Encounter type: initial encounter Involved ligament of knee: unspecified ligament Qualified Code(s): S83.91XA - Sprain of unspecified site of right knee, initial encounter Left ankle sprain Qualifiers: Encounter type: initial encounter Involved ligament of ankle: unspecified ligament Qualified Code(s): S93.402A - Sprain of unspecified ligament of left ankle, initial encounter The scribe's documentation has been prepared under my direction and personally reviewed by me in its entirety. I confirm that the note above accurately reflects all work, treatment, procedures, and medical decision making performed by me.
--- NOTE | 2019-04-22 04:18 | History and Physical Report ---
[facility] DATE OF ADMISSION: 04/22/2019 CHIEF COMPLAINT: Fall and ambulatory dysfunction. HISTORY OF PRESENT ILLNESS: This is a 63-year-old female with past medical history significant for progressive decline in ambulation, history of cerebral palsy, history of diabetes, NG cirrhosis of liver, morbid obesity, GERD, hypertension, venous insufficiency, obstructive sleep apnea on CPAP, restrictive lung disease,, hyperlipidemia, venous stasis dermatitis to both lower extremities, chronic pain syndrome, pancytopenia, depression, currently wheelchair dependent. Presents with fall and ambulatory dysfunction. The patient was here in the hospital, was admitted on 03/27/2019 with a fall and was discharged to [facility] on 04/03/2019. The patient just got discharged a couple of days ago from residential to home. As per the patient, she was still nonambulatory. She can only stand up, but she was discharged because of insurance issues. Yesterday, she was with family get together, she fell at home and has had some small bruise on her left ankle and there is a bandage applied and today while she was going to [facility] she could not get up, she fell down, and her legs went below her. They had to lay down her flat and they could not get her up. Ambulance was called in and brought in here. Imaging studies were reported unremarkable, but because of ambulatory dysfunction and frequent falls, she was getting admitted to hospital for possible placement. Currently, denies any headache, no blurred visions, no sore throat, no difficulty swallowing. No chest pain or shortness of breath. Has some occasional dry cough. No fever, no chills, no nausea, no abdominal pain. Normal bowel and bladder movements. Resting comfortably and hemodynamically stable. ALLERGIES: PENICILLIN. PAST MEDICAL HISTORY: As mentioned above. PAST SURGICAL HISTORY: , colonoscopy, dental surgery, dilatation and curettage, EGDs, repair of the Achilles tendon. MEDICATIONS: The patient is on Lasix 20 mg p.o. daily, ferrous sulfate 325 mg p.o. daily, Lantus 25 units daily, omeprazole 20 mg p.o. daily, Flonase 2 sprays into each nostril daily, Lexapro 20 mg p.o. daily, metformin 1000 mg p.o. b.i.d., trazodone 50 mg p.o. at bedtime, aspirin 81 mg p.o. daily, Trulicity 1.5 mg weekly, Flexeril 10 mg p.o. at bedtime, Ditropan 5 mg p.o. b.i.d., gabapentin 300 mg one pill in the a.m., one in midday, and two in p.m., levothyroxine 150 mcg daily, potassium chloride 10 mEq p.o. daily, vitamin C 500 mg p.o. daily, Centrum silver 1 tablet p.o. daily. FAMILY HISTORY: Significant for father has diabetes and heart disorder, mother has heart disorder, sister has hypertension and heart disorder. SOCIAL HISTORY: , lives with her . No smoking, no alcohol, no drug use. REVIEW OF SYMPTOMS: As per HPI. Rest of the review of systems negative. PHYSICAL EXAMINATION: GENERAL: The patient is morbidly obese, not in acute distress. VITAL SIGNS: Temperature 36.7, pulse 73, respiratory rate 16, blood pressure 148/90, oxygen 93% on room air. HEENT: No pallor, no icterus. Pupils equal, round, and reactive to light. NECK: No JVD, no neck masses, no carotid bruits. CARDIOVASCULAR: S1, S2 heard, regular rate and rhythm, no murmur, no gallop. RESPIRATORY SYSTEM: Normal AP diameter. No accessory muscle use. No wheezing, no crackles. ABDOMEN: Soft, bowel sounds present, nontender. No distention. CENTRAL NERVOUS SYSTEM: Nonfocal. EXTREMITIES: Lower extremity edema present. Small bruise in the left above ankle in the medial aspect. LABORATORY DATA: Sodium 145, potassium 3.9, chloride 111, CO2 of 26, BUN 15, creatinine 0.8, serum glucose 157, calcium 8.9. IMAGING DATA: Femur x-rays and tibia and fibula x-ray and pelvic x-ray unremarkable ASSESSMENT AND PLAN: This is a 63-year-old female who presents with frequent falls and ambulatory dysfunction. 1. Frequent falls and ambulatory dysfunction. She was just discharged from residential on 04/18/2019. Now she has a lift at home, but she fell yesterday and also she fell today while she was getting up from the potty. She is only standing up, not ambulating. Became wheelchair dependent. History of falls. We will observe the patient in the hospital. PT and OT and possible placement. 2. Morbid obesity, obstructive sleep apnea, on CPAP at bedtime. 3. Diabetes. We will hold metformin, Trulicity. Continue Lantus.. We will place on insulin sliding scale. Monitor the blood sugars. 4. Hypothyroidism, on Synthroid. 5. Pancytopenia, chronic, possibly from NG cirrhosis. Follow up as outpatient. 6. Lower extremity edema, on Lasix daily. 7. anxiety disorder, depression, on trazodone and Lexapro. 8. Cirrhosis possible. Question of been on nadolol. In [facility] GI notes has nadolol but on med rec its not present. Patient doesn't know what meds she takes. Pharmacy sends medicine in medicine box. Needs to clarify about it. 9. Deep vein thrombosis prophylaxis, sequential compression devices for now. 10. Code status. Full code. 11. Disposition: PT, OT. Social Service to help with discharge planning, may need placement. MTDD
[2019-04-22] MEDS: LEVOTHYROXINE SODIUM 150 MCG TABLET PO SCH (05:39)
--- NOTE | 2019-04-22 06:16 | XRay Report ---
XR pelvis 1-2V routine CLINICAL HISTORY: Fall, complaint of total leg pains trauma. Pain. COMPARISON: None. DISCUSSION: Moderate generalized degenerative change of the hips bilaterally. The patient is position ally rotated. No evidence for acetabular protrusion. There is no evidence for soft tissue swelling. IMPRESSION: Limited study due to body habitus. Moderate degenerative change. The above report was generated using voice recognition software. It may contain grammatical, syntax or spelling errors. Electronically signed by: Carter Robison M.D. 04/22/2019 6:15 AM
--- NOTE | 2019-04-22 06:18 | XRay Report ---
XR femur LT 2V routine CLINICAL HISTORY: Fall, complaint of total leg pains trauma. Pain. COMPARISON: None. DISCUSSION: The bones and joint spaces appear intact. There is no evidence of fracture, dislocation o r bony disease. There is no evidence for soft tissue swelling. Moderate generalized degenerative mir ge IMPRESSION: Negative study. Moderate generalized degenerative change. The above report was generated using voice recognition software. It may contain grammatical, syntax or spelling errors. Electronically signed by: Carter Robison M.D. 04/22/2019 6:17 AM
--- NOTE | 2019-04-22 06:21 | XRay Report ---
XR tibia fibula LT 2V CLINICAL HISTORY: Fall, complaint of total leg pains COMPARISON: None. DISCUSSION: Moderate generalized degenerative change. Benign bony exostosis/soft tissue myositis of t he distal tibial shaft. Moderate generalized soft tissue and pretibial soft tissue edematous change. IMPRESSION: Moderate generalized soft tissue edema. No acute bony abnormality. The above report was generated using voice recognition software. It may contain grammatical, syntax or spelling errors. Electronically signed by: Carter Robison M.D. 04/22/2019 6:19 AM
--- NOTE | 2019-04-22 06:22 | XRay Report ---
XR tibia fibula RT 2V CLINICAL HISTORY: Fall, complaint of total leg pains trauma. Pain. COMPARISON: None. DISCUSSION: The bones and joint spaces appear intact. There is no evidence of fracture, dislocation o r bony disease. Moderate generalized soft tissue edema IMPRESSION: No acute process. Soft tissue edema. The above report was generated using voice recognition software. It may contain grammatical, syntax or spelling errors. Electronically signed by: Carter Robison M.D. 04/22/2019 6:21 AM
--- NOTE | 2019-04-22 06:23 | XRay Report ---
XR femur RT 2V routine CLINICAL HISTORY: Fall, complaint of total leg pains trauma. Pain. COMPARISON: None. DISCUSSION: The bones and joint spaces appear intact. There is no evidence of fracture, dislocation o r bony disease. Moderate generalized soft tissue edema IMPRESSION: No acute process. Soft tissue edema. Moderate degenerative change. The above report was generated using voice recognition software. It may contain grammatical, syntax or spelling errors. Electronically signed by: Carter Robison M.D. 04/22/2019 6:21 AM
[2019-04-22] MEDS: NADOLOL 40 MG TAB PO SCH (08:32)
[2019-04-22] MEDS: ASPIRIN 81 MG ECTAB PO SCH (08:33)
[2019-04-22] MEDS: OXYBUTYNIN CHLORIDE 5 MG TAB PO SCH ×2 (08:33→20:31)
[2019-04-22] MEDS: FERROUS SULFATE 325 MG TAB PO SCH (08:34)
[2019-04-22] MEDS: FLUTICASONE PROPIONATE NA SPR 16 GM BTL SCH (08:34)
[2019-04-22] MEDS: TAMSULOSIN HCL 0.4 MG CAP PO SCH (08:34)
[2019-04-22] MEDS: POTASSIUM CHLORIDE 10 MEQ TABCR PO SCH (08:35)
[2019-04-22] MEDS: FUROSEMIDE 20 MG TAB PO SCH (08:35)
[2019-04-22] MEDS: ESCITALOPRAM OXALATE 20 MG TAB PO SCH (08:36)
[2019-04-22] MEDS: CEROVITE ADV FORMULA TAB PO SCH (08:36)
[2019-04-22] MEDS: PANTOprazole 40 MG TAB PO SCH (08:36)
[2019-04-22] MEDS: GABAPENTIN 300 MG CAP PO SCH ×2 (08:36→13:44)
[2019-04-22] MEDS: ASCORBIC ACID 500 MG TAB PO SCH (08:37)
[2019-04-22] MEDS: INSULIN ASPART 100 UNITS/ML 3 ML PEN SC SCH ×4 (08:40→20:47)
[2019-04-22] MEDS: ACETAMINOPHEN 325 MG TAB PO PRN (14:19)
[2019-04-22] MEDS ORDERED: IBUPROFEN 200 MG TAB PO PRN (18:35)
--- NOTE | 2019-04-22 19:13 | Hospitalist Progress Note ---
Date of Service April 22, 2019 Assessment & Plan (1) Ambulatory dysfunction: Patient is a 63 yr female who presents with frequent falls and ambulatory dysfunction. 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 Monitor CBC Lower extremity edema Continue Lasix Anxiety disorder Depression Fibromyalgia on trazodone, Lexapro DVT Px: SCD Re: Thrombocytopenia Code status Full code Disposition: PT, OT prior to DC Subjective Patient is seen and examined at bedside Denies any chest pain, shortness of breath, dizziness, nausea, abdominal pain Chronic ambulatory dysfunction, multiple falls Offers no other complaints Review of Systems Review of Systems: All systems reviewed & are unremarkable except as noted in HPI & below Physical Exam Physical Exam: Physical Exam: Vitals signs as noted above General Appearance:Morbidly Obese, no apparent distress Head: normocephalic, Atraumatic Eyes: normal inspection, EOMI Neck: supple, Trachea midline Respiratory/Chest: Normal breath sounds, CTA Cardiovascular: S1, S2, No murmur Abdomen/GI:Soft, Non tender, Bowel sounds present Extremities/Musculoskelatal:normal inspection, 1+ B/L pedal edema Neurologic/Psych:AAOX3, grossly no focal neurological deficits Skin: normal color, warm Results & Data Vital Signs (Past 12 Hours) Vital Signs Temp Pulse Resp BP Pulse Ox 04/22/19 15:14 36.9 C 67 20 110/69 92 Laboratory Results Short CBC 04/22/19 04/22/19 Range/Units 00:49 01:39 WBC Cancelled 4.61 L Hgb Cancelled 10.5 L Hct Cancelled 33.3 L Plt Count Cancelled 79 L BMP 04/22/19 04/22/19 00:49 01:39 Sodium 145 Potassium 3.9 Chloride 111 H Carbon Dioxide 26 BUN 15 Creatinine 0.88 Glucose 157 H Calcium 8.9
[2019-04-22] MEDS: ATORVASTATIN 40 MG TAB PO SCH (20:30)
[2019-04-22] MEDS: GABAPENTIN 600 MG TAB PO SCH (20:31)
[2019-04-22] MEDS: TRAZODONE HCL 50 MG TAB PO SCH (20:32)
[2019-04-22] MEDS: CYCLOBENZAPRINE HCL 10 MG TAB PO SCH (20:46)
[2019-04-22] MEDS: INSULIN GLARGINE SOLOSTAR 100 UNITS/ML 3 ML PEN SQ SCH (20:48)
[2019-04-23 05:34] LABS: Mean Corpuscular Hgb Conc 31.8 g/dL (32-36)
[2019-04-23 05:48] LABS: Hemoglobin 10.5 g/dL (12.0-16.0); Mean Corpuscular Volume 93.8 fL (80-100); RDW Coefficient of Variation 19.7 % (11.5-14.5); RDW Standard Deviation 67.9 fL (36.4-46.3); Red Blood Count 3.52 M/uL (4.2-5.4); White Blood Count 3.44 K/uL (4.8-10.8)
[2019-04-23 05:50] LABS: BUN Creatinine Ratio 23.3 (10-20); Calcium 8.3 mg/dl (8.5-10.1); Creatinine Clr Calc Pharmacy 92.7 ml/min; Est GFR (African American) 101.6; Est GFR (Non-African American) 87.7; Potassium 3.5 mmol/L (3.5-5.1)
[2019-04-23 06:07] LABS: Platelet Count 84 K/uL (130-400)
[2019-04-23 06:09] LABS: Basophils # (auto) 0.03 K/uL (0-0.2); Basophils % (auto) 0.9 %; Eosinophils # (auto) 0.27 K/uL (0-0.5); Eosinophils % (auto) 7.8 %; Giant Platelets 2+; Lymphocytes # (auto) 1.19 K/uL (1.2-3.4); Lymphocytes % (auto) 34.6 %; Monocytes # (auto) 0.29 K/uL (0.11-0.59); Monocytes % (auto) 8.4 %; Neutrophils # (auto) 1.66 K/uL (1.4-6.5); Neutrophils % (auto) 48.3 %; Ovalocytes 1+; Platelet Estimate Decreased (Normal); Poikilocytosis Present; Tear Drop Cells 1+
[2019-04-23 06:15] LABS: Estimated Average Glucose 146 mg/dl; Hemoglobin A1C 6.7 % (4.5-5.6)
[2019-04-23] MEDS: LEVOTHYROXINE SODIUM 150 MCG TABLET PO SCH (06:28)
[2019-04-23] MEDS: PANTOprazole 40 MG TAB PO SCH (09:07)
[2019-04-23] MEDS: OXYBUTYNIN CHLORIDE 5 MG TAB PO SCH ×2 (09:07→21:38)
[2019-04-23] MEDS: CEROVITE ADV FORMULA TAB PO SCH (09:07)
[2019-04-23] MEDS: FUROSEMIDE 20 MG TAB PO SCH (09:08)
[2019-04-23] MEDS: POTASSIUM CHLORIDE 10 MEQ TABCR PO SCH (09:08)
[2019-04-23] MEDS: ASCORBIC ACID 500 MG TAB PO SCH (09:08)
[2019-04-23] MEDS: NADOLOL 40 MG TAB PO SCH (09:09)
[2019-04-23] MEDS: ASPIRIN 81 MG ECTAB PO SCH (09:09)
[2019-04-23] MEDS: TAMSULOSIN HCL 0.4 MG CAP PO SCH (09:09)
[2019-04-23] MEDS: GABAPENTIN 300 MG CAP PO SCH ×2 (09:09→13:03)
[2019-04-23] MEDS: FERROUS SULFATE 325 MG TAB PO SCH (09:09)
[2019-04-23] MEDS: ESCITALOPRAM OXALATE 20 MG TAB PO SCH (09:10)
[2019-04-23] MEDS: FLUTICASONE PROPIONATE NA SPR 16 GM BTL SCH (09:10)
[2019-04-23] MEDS: INSULIN ASPART 100 UNITS/ML 3 ML PEN SC SCH ×4 (09:14→21:42)
--- NOTE | 2019-04-23 17:28 | Hospitalist Progress Note ---
Date of Service April 23, 2019 Assessment & Plan (1) Ambulatory dysfunction: Patient is a 63 yr female who presents with frequent falls and ambulatory dysfunction. 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 Monitor CBC Lower extremity edema Continue Lasix Anxiety disorder Depression Fibromyalgia on trazodone, Lexapro DVT Px: SCD Re: Thrombocytopenia Code status Full code Disposition: Needs rehab placement Subjective Patient is seen and examined at bedside Complains of mild right knee pain Denies any chest pain, shortness of breath, dizziness, nausea, abdominal pain Chronic ambulatory dysfunction, multiple falls No other complaints Waiting for SNF placement Review of Systems Review of Systems: All systems reviewed & are unremarkable except as noted in HPI & below Physical Exam Physical Exam: Physical Exam: Vitals signs as noted above General Appearance:Morbidly Obese, no apparent distress Head: normocephalic, Atraumatic Eyes: normal inspection, EOMI Neck: supple, Trachea midline Respiratory/Chest: Normal breath sounds, CTA Cardiovascular: S1, S2, No murmur Abdomen/GI:Soft, Non tender, Bowel sounds present Extremities/Musculoskelatal:normal inspection, 1+ B/L pedal edema Neurologic/Psych:AAOX3, grossly no focal neurological deficits Skin: normal color, warm Results & Data Vital Signs (Past 12 Hours) Vital Signs Temp Pulse Resp BP Pulse Ox 04/23/19 16:15 36.7 C 64 18 130/80 93 04/23/19 08:03 36.5 C 68 18 102/70 92 Laboratory Results Short CBC 04/23/19 Range/Units 05:22 WBC 3.44 L (4.8-10.8) K/uL Hgb 10.5 L (12.0-16.0) g/dL Hct 33.0 L (37-47) % Plt Count 84 L (130-400) K/uL BMP 04/23/19 05:22 Sodium 145 Potassium 3.5 Chloride 109 H Carbon Dioxide 30 BUN 17 Creatinine 0.73 Glucose 126 H Calcium 8.3 L
[2019-04-23] MEDS: ATORVASTATIN 40 MG TAB PO SCH (21:38)
[2019-04-23] MEDS: TRAZODONE HCL 50 MG TAB PO SCH (21:38)
[2019-04-23] MEDS: GABAPENTIN 600 MG TAB PO SCH (21:38)
[2019-04-23] MEDS: INSULIN GLARGINE SOLOSTAR 100 UNITS/ML 3 ML PEN SQ SCH (21:43)
[2019-04-23] MEDS: CYCLOBENZAPRINE HCL 10 MG TAB PO SCH (21:56)
[2019-04-24] MEDS: LEVOTHYROXINE SODIUM 150 MCG TABLET PO SCH (06:17)
[2019-04-24 06:47] LABS: BUN Creatinine Ratio 21.6 (10-20); Calcium 8.5 mg/dl (8.5-10.1); Est GFR (African American) 96.8; Est GFR (Non-African American) 83.5; Potassium 3.4 mmol/L (3.5-5.1)
[2019-04-24] MEDS: CEROVITE ADV FORMULA TAB PO SCH (08:37)
[2019-04-24] MEDS: GABAPENTIN 300 MG CAP PO SCH ×2 (08:37→13:23)
[2019-04-24] MEDS: ESCITALOPRAM OXALATE 20 MG TAB PO SCH (08:37)
[2019-04-24] MEDS: FUROSEMIDE 20 MG TAB PO SCH (08:38)
[2019-04-24] MEDS: POTASSIUM CHLORIDE 10 MEQ TABCR PO SCH (08:39)
[2019-04-24] MEDS: ASCORBIC ACID 500 MG TAB PO SCH (08:39)
[2019-04-24] MEDS: TAMSULOSIN HCL 0.4 MG CAP PO SCH (08:39)
[2019-04-24] MEDS: FERROUS SULFATE 325 MG TAB PO SCH (08:39)
[2019-04-24] MEDS: ASPIRIN 81 MG ECTAB PO SCH (08:40)
[2019-04-24] MEDS: NADOLOL 40 MG TAB PO SCH (08:40)
[2019-04-24] MEDS: PANTOprazole 40 MG TAB PO SCH (08:40)
[2019-04-24] MEDS: OXYBUTYNIN CHLORIDE 5 MG TAB PO SCH ×2 (08:40→21:08)
[2019-04-24] MEDS: FLUTICASONE PROPIONATE NA SPR 16 GM BTL SCH (08:40)
[2019-04-24] MEDS: INSULIN ASPART 100 UNITS/ML 3 ML PEN SC SCH ×4 (08:41→21:10)
[2019-04-24] MEDS ORDERED: POTASSIUM CHLORIDE 10 MEQ TABCR PO STA (08:45)
--- NOTE | 2019-04-24 18:40 | Hospitalist Progress Note ---
Date of Service April 24, 2019 Assessment & Plan (1) Ambulatory dysfunction: Patient is a 63 yr female who presents with frequent falls and ambulatory dysfunction. 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 Monitor CBC Lower extremity edema Continue Lasix Anxiety disorder Depression Fibromyalgia on trazodone, Lexapro DVT Px: SCD Re: Thrombocytopenia Code status Full code Disposition: Needs rehab placement Subjective Patient is seen and examined at bedside Leg edema slightly improving Right knee pain is controlled Denies any chest pain, shortness of breath, dizziness, nausea, abdominal pain Chronic ambulatory dysfunction, multiple falls No other complaints Review of Systems Review of Systems: All systems reviewed & are unremarkable except as noted in HPI & below Physical Exam Physical Exam: Physical Exam: Vitals signs as noted above General Appearance:Morbidly Obese, no apparent distress Head: normocephalic, Atraumatic Eyes: normal inspection, EOMI Neck: supple, Trachea midline Respiratory/Chest: Normal breath sounds, CTA Cardiovascular: S1, S2, No murmur Abdomen/GI:Soft, Non tender, Bowel sounds present Extremities/Musculoskelatal:normal inspection, 1+ B/L pedal edema Neurologic/Psych:AAOX3, grossly no focal neurological deficits Skin: normal color, warm Results & Data Vital Signs (Past 12 Hours) Vital Signs Temp Pulse Resp BP Pulse Ox 04/24/19 15:12 36.7 C 58 L 18 91/60 L 94 04/24/19 07:41 36.6 C 59 L 18 100/71 92 Laboratory Results [facility] [place] 04/24/19 05:38 Sodium 142 Potassium 3.4 L Chloride 107 Carbon Dioxide 29 BUN 16 Creatinine 0.76 Glucose 121 H Calcium 8.5
[2019-04-24] MEDS: TRAZODONE HCL 50 MG TAB PO SCH (21:08)
[2019-04-24] MEDS: INSULIN GLARGINE SOLOSTAR 100 UNITS/ML 3 ML PEN SQ SCH (21:10)
[2019-04-24] MEDS: GABAPENTIN 600 MG TAB PO SCH (21:12)
[2019-04-24] MEDS: ATORVASTATIN 40 MG TAB PO SCH (21:12)
[2019-04-24] MEDS: CYCLOBENZAPRINE HCL 10 MG TAB PO SCH (21:19)
[2019-04-24] MEDS: ACETAMINOPHEN 325 MG TAB PO PRN (22:27)
[2019-04-25] MEDS: LEVOTHYROXINE SODIUM 150 MCG TABLET PO SCH (06:03)
[2019-04-25 06:52] LABS: BUN Creatinine Ratio 21.7 (10-20); Calcium 8.6 mg/dl (8.5-10.1); Creatinine Clr Calc Pharmacy 81.5 ml/min; Potassium 3.7 mmol/L (3.5-5.1)
[2019-04-25] MEDS: INSULIN ASPART 100 UNITS/ML 3 ML PEN SC SCH ×4 (08:41→21:03)
[2019-04-25] MEDS: ESCITALOPRAM OXALATE 20 MG TAB PO SCH (09:13)
[2019-04-25] MEDS: NADOLOL 40 MG TAB PO SCH (09:13)
[2019-04-25] MEDS: ASCORBIC ACID 500 MG TAB PO SCH (09:13)
[2019-04-25] MEDS: ASPIRIN 81 MG ECTAB PO SCH (09:13)
[2019-04-25] MEDS: GABAPENTIN 300 MG CAP PO SCH ×2 (09:13→13:03)
[2019-04-25] MEDS: CEROVITE ADV FORMULA TAB PO SCH (09:13)
[2019-04-25] MEDS: FERROUS SULFATE 325 MG TAB PO SCH (09:13)
[2019-04-25] MEDS: TAMSULOSIN HCL 0.4 MG CAP PO SCH (09:13)
[2019-04-25] MEDS: FUROSEMIDE 20 MG TAB PO SCH (09:13)
[2019-04-25] MEDS: POTASSIUM CHLORIDE 10 MEQ TABCR PO SCH (09:14)
[2019-04-25] MEDS: PANTOprazole 40 MG TAB PO SCH (09:14)
[2019-04-25] MEDS: FLUTICASONE PROPIONATE NA SPR 16 GM BTL SCH (09:14)
[2019-04-25] MEDS: OXYBUTYNIN CHLORIDE 5 MG TAB PO SCH ×2 (09:14→21:09)
[2019-04-25] MEDS: ACETAMINOPHEN 325 MG TAB PO PRN ×2 (13:06→17:09)
--- NOTE | 2019-04-25 18:36 | Hospitalist Progress Note ---
Date of Service April 25, 2019 Assessment & Plan (1) Ambulatory dysfunction: Patient is a 63 yr female who presents with frequent falls and ambulatory dysfunction. 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 Monitor CBC Lower extremity edema Continue Lasix Anxiety disorder Depression Fibromyalgia on trazodone, Lexapro DVT Px: SCD Re: Thrombocytopenia Code status Full code Disposition: Needs rehab placement Subjective Patient is seen and examined at bedside No new complaints Right knee pain is improving Denies any chest pain, shortness of breath, dizziness, nausea, abdominal pain Chronic ambulatory dysfunction, multiple falls Waiting for SNF placement Review of Systems Review of Systems: All systems reviewed & are unremarkable except as noted in HPI & below Physical Exam Physical Exam: Physical Exam: Vitals signs as noted above General Appearance:Morbidly Obese, no apparent distress Head: normocephalic, Atraumatic Eyes: normal inspection, EOMI Neck: supple, Trachea midline Respiratory/Chest: Normal breath sounds, CTA Cardiovascular: S1, S2, No murmur Abdomen/GI:Soft, Non tender, Bowel sounds present Extremities/Musculoskelatal:normal inspection, 1+ B/L pedal edema Neurologic/Psych:AAOX3, grossly no focal neurological deficits Skin: normal color, warm Results & Data Vital Signs (Past 12 Hours) Vital Signs Temp Pulse Resp BP Pulse Ox 04/25/19 15:30 36.7 C 61 16 98/64 L 90 04/25/19 09:12 117/74 04/25/19 07:44 36.5 C 60 16 109/67 94 Laboratory Results [facility] 04/25/19 05:55 Sodium 143 Potassium 3.7 Chloride 108 H Carbon Dioxide 30 BUN 18 Creatinine 0.83 Glucose 137 H Calcium 8.6
[2019-04-25] MEDS: INSULIN GLARGINE SOLOSTAR 100 UNITS/ML 3 ML PEN SQ SCH (21:05)
[2019-04-25] MEDS: CYCLOBENZAPRINE HCL 10 MG TAB PO SCH (21:09)
[2019-04-25] MEDS: ATORVASTATIN 40 MG TAB PO SCH (21:09)
[2019-04-25] MEDS: TRAZODONE HCL 50 MG TAB PO SCH (21:09)
[2019-04-25] MEDS: GABAPENTIN 600 MG TAB PO SCH (21:09)
[2019-04-26] MEDS: LEVOTHYROXINE SODIUM 150 MCG TABLET PO SCH (05:28)
[2019-04-26 06:15] LABS: BUN Creatinine Ratio 21.9 (10-20); Calcium 8.2 mg/dl (8.5-10.1); Creatinine Clr Calc Pharmacy 92.7 ml/min; Est GFR (African American) 101.6; Est GFR (Non-African American) 87.7; Potassium 3.7 mmol/L (3.5-5.1)
[2019-04-26] MEDS: FUROSEMIDE 20 MG TAB PO SCH (08:22)
[2019-04-26] MEDS: POTASSIUM CHLORIDE 10 MEQ TABCR PO SCH (08:22)
[2019-04-26] MEDS: NADOLOL 40 MG TAB PO SCH (08:22)
[2019-04-26] MEDS: GABAPENTIN 300 MG CAP PO SCH ×2 (08:22→13:29)
[2019-04-26] MEDS: FERROUS SULFATE 325 MG TAB PO SCH (08:22)
[2019-04-26] MEDS: TAMSULOSIN HCL 0.4 MG CAP PO SCH (08:22)
[2019-04-26] MEDS: PANTOprazole 40 MG TAB PO SCH (08:22)
[2019-04-26] MEDS: ESCITALOPRAM OXALATE 20 MG TAB PO SCH (08:23)
[2019-04-26] MEDS: ASPIRIN 81 MG ECTAB PO SCH (08:23)
[2019-04-26] MEDS: FLUTICASONE PROPIONATE NA SPR 16 GM BTL SCH (08:23)
[2019-04-26] MEDS: CEROVITE ADV FORMULA TAB PO SCH (08:23)
[2019-04-26] MEDS: ASCORBIC ACID 500 MG TAB PO SCH (08:23)
[2019-04-26] MEDS: OXYBUTYNIN CHLORIDE 5 MG TAB PO SCH (08:23)
[2019-04-26] MEDS: INSULIN ASPART 100 UNITS/ML 3 ML PEN SC SCH ×2 (08:28→13:27)
--- NOTE | 2019-04-26 13:52 | Hospitalist Progress Note ---
Date of Service April 26, 2019 Assessment & Plan (1) Ambulatory dysfunction: Patient is a 63 yr female who presents with frequent falls and ambulatory dysfunction. 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 Monitor CBC Lower extremity edema Continue Lasix Anxiety disorder Depression Fibromyalgia on trazodone, Lexapro DVT Px: SCD Re: Thrombocytopenia Code status Full code Disposition: Plan to discharge home with Home Health Subjective Patient is seen and examined at bedside States feeling well today Prefers to be discharged home with Home Health Denies Right knee pain today Denies any chest pain, shortness of breath, dizziness, nausea, abdominal pain Chronic ambulatory dysfunction, multiple falls Review of Systems Review of Systems: All systems reviewed & are unremarkable except as noted in HPI & below Physical Exam Physical Exam: Physical Exam: Vitals signs as noted above General Appearance:Morbidly Obese, no apparent distress Head: normocephalic, Atraumatic Eyes: normal inspection, EOMI Neck: supple, Trachea midline Respiratory/Chest: Normal breath sounds, CTA Cardiovascular: S1, S2, No murmur Abdomen/GI:Soft, Non tender, Bowel sounds present Extremities/Musculoskelatal:normal inspection, 1+ B/L pedal edema Neurologic/Psych:AAOX3, grossly no focal neurological deficits Skin: normal color, warm Results & Data Vital Signs (Past 12 Hours) Vital Signs Temp Pulse Resp BP Pulse Ox 04/26/19 06:59 36.8 C 59 L 18 109/69 92 Laboratory Results [facility] 04/26/19 05:24 Sodium 143 Potassium 3.7 Chloride 109 H Carbon Dioxide 31 BUN 16 Creatinine 0.73 Glucose 139 H Calcium 8.2 L
--- NOTE | 2019-04-26 14:00 | Discharge Summary ---
Date of Service April 26, 2019 Admission HPI Per Admitting Provider CHIEF COMPLAINT: Fall and ambulatory dysfunction. HISTORY OF PRESENT ILLNESS: This is a 63-year-old female with past medical history significant for progressive decline in ambulation, history of cerebral palsy, history of diabetes, NG cirrhosis of liver, morbid obesity, GERD, hypertension, venous insufficiency, obstructive sleep apnea on CPAP, restrictive lung disease,, hyperlipidemia, venous stasis dermatitis to both lower extremities, chronic pain syndrome, pancytopenia, depression, currently wheelchair dependent. Presents with fall and ambulatory dysfunction. The patient was here in the hospital, was admitted on 03/27/2019 with a fall and [facility] The patient just got discharged a couple of days ago from [facility] to home. As per the patient, she was still nonambulatory. She can only stand up, but she was discharged because of insurance issues. Yesterday, she was with family get together, she fell at home and has had some small bruise on her left ankle and there is a bandage applied and today while she was going to [employer] she could not get up, she fell down, and her legs went below her. They had to lay down her flat and they could not get her up. Ambulance was called in and brought in here. Imaging studies were reported unremarkable, but because of ambulatory dysfunction and frequent falls, she was getting admitted to hospital for possible placement. Currently, denies any headache, no blurred visions, no sore throat, no difficulty swallowing. No chest pain or shortness of breath. Has some occasional dry cough. No fever, no chills, no nausea, no abdominal pain. Normal bowel and bladder movements. Resting comfortably and hemodynamically stable. Admission Exam Per Admitting Provider PHYSICAL EXAMINATION: GENERAL: The patient is morbidly obese, not in acute distress. VITAL SIGNS: Temperature 36.7, pulse 73, respiratory rate 16, blood pressure 148/90, oxygen 93% on room air. HEENT: No pallor, no icterus. Pupils equal, round, and reactive to light. NECK: No JVD, no neck masses, no carotid bruits. CARDIOVASCULAR: S1, S2 heard, regular rate and rhythm, no murmur, no gallop. RESPIRATORY SYSTEM: Normal AP diameter. No accessory muscle use. No wheezing, no crackles. ABDOMEN: Soft, bowel sounds present, nontender. No distention. CENTRAL NERVOUS SYSTEM: Nonfocal. EXTREMITIES: Lower extremity edema present. Small bruise in the left above ankle in the medial aspect. Principal Diagnosis Discharge Information Discharge Diagnosis Frequent falls Ambulatory dysfunction Discharge Goals Decrease discomfort,Improve disease control, Improve function Discharge Activity Limitations Resume your previous activity Discharge Data Allergies Allergy/AdvReac Type Severity Reaction Status Date / Time Penicillins Allergy Intermediate HIVES Verified 04/22/19 00:50 Consultations 04/22/19 00:37 ED Decision to Admit Stat 04/22/19 02:54 Consult Case Management - Discharge Planning Routine Procedures Performed R Tibia/Fibula X ray: No acute process. Soft tissue edema. L Tibia/Fibula X ray: Moderate generalized soft tissue edema. No acute bony abnormality. Pelvic X ray: Limited study due to body habitus. Moderate degenerative change. R Femur X ray: No acute process. Soft tissue edema. Moderate degenerative change. L Femur X ray: Negative study. Moderate generalized degenerative change. Hospital Course (1) Ambulatory dysfunction: Patient is a 63 yr female who presents with frequent falls and ambulatory dysfunction. 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 Monitor CBC Lower extremity edema Continue Lasix Anxiety disorder Depression Fibromyalgia on trazodone, Lexapro DVT Px: SCD Re: Thrombocytopenia Code status Full code Disposition: Plan to discharge home with Home Health Total Time Total Time Spent Total Time Spent (In Minutes): 34 minutes Total Time Includes: Examination of the Patient, Discharge Planning, Medication Reconciliation and Other Discharge Plan Discharge Items Patient Disposition: Home - Home Health Services Reason For Visit: FALL Discharge Diagnosis: Frequent falls Ambulatory dysfunction Discharge Goals: Decrease discomfort, Improve disease control and Improve function Activity: Resume your previous activity Exercise/Sports: Gradually increase as tolerated Non-emergency contact: Primary Care Provider Call non-emergency contact if: you have any medication questions, your symptoms worsen, your pain is not controlled, your pain is worsening, your pain is unusual for you, your pain is concerning for you and you have a fever Follow-up/Referrals: Rajwinder Carter DO [Primary Care Provider] - Diet: Carb Consistent or DM2 and Heart Healthy Addtl Provider Instructions: Follow up with your PCP on May 02, 2019 at 10:45 AM Seek immediate medical attention if your symptoms reoccur or worsen Prescriptions: Continued gabapentin 300 mg capsule 600 mg PO HS RF: 0 escitalopram oxalate 20 mg tablet 20 mg PO QAM RF: 0 fluticasone propionate [Flonase Allergy Relief] 50 mcg/actuation [place],Suspension 2 spray Intranasal QAM RF: 0 Centrum Silver 0.4-300-250 mg-mcg-mcg Tablet 1 tab PO QAM RF: 0 tamsulosin 0.4 mg capsule 0.4 mg PO DAILY RF: 0 nadolol 20 mg tablet 20 mg PO DAILY RF: 0 cyclobenzaprine 10 mg Tablet 10 mg PO HS RF: 0 atorvastatin 40 mg Tablet 40 mg PO HS RF: 0 trazodone 50 mg Tablet 50 mg PO HS RF: 0 potassium chloride 10 mEq Tablet Extended Release 10 meq PO QAM RF: 0 fexofenadine [Danita Allergy] 180 mg Tablet 180 mg PO QAM PRN (Reason: Allergy Symptoms) RF: 0 aspirin [Aspir-81] 81 mg Tablet,Delayed Release (Dr/Ec) 81 mg PO QAM RF: 0 ascorbic acid (vitamin C) [Vitamin C] 500 mg Tablet 500 mg PO QAM RF: 0 metformin 1,000 mg Tablet 1,000 mg PO BIDM RF: 0 levothyroxine 150 mcg Tablet 150 mcg PO QAM RF: 0 gabapentin 300 mg Capsule 300 mg PO UD RF: 0 omeprazole 20 mg Capsule,Delayed Release(Dr/Ec) 20 mg PO QAM RF: 0 furosemide [Lasix] 20 mg Tablet 20 mg PO QAM RF: 0 oxybutynin chloride 5 mg Tablet 5 mg PO BID RF: 0 Lantus Solostar U-100 Insulin 100 unit/mL (3 mL) Insulin Pen 24 unit SUBCUT HS RF: 0 dulaglutide 1.5 mg/0.5 mL Pen Injector 1.5 mg subcut WK RF: 0 ferrous sulfate 325 mg (65 mg iron) Tablet 325 mg PO QAM RF: 0 Stand-Alone Forms: [facility]/Other Patient Handouts: Diabetes Healthy Meals, Eat Healthy Discharge Orders: Discharge Order (Routine); Ordered 04/26/19 Ordered By: Que Dale Admission Data Admit Date/Time: 04/23/19 14:23 Attending Provider: Que Dale Admit Provider: Alexis Guardado Primary Care Provider: Rajwinder Carter Other Providers: Alexis Guardado Service: Medical Other Interventions: Discharge Summary Assessment (RN) Last Done: 04/26/19 14:03 Pending Studies at Discharge: No DC Date/Time DO NOT enter until pt leaves facility: 04/26/19 14:48
== END 2019-04-26 14:48 | disposition home health service (06) | DRG 92 ==
LOC: 3E 23:04 → ED 23:04 → 3E 04-22 02:31

== ENCOUNTER 2019-11-20 12:51 | Inpatient (IN) ==
--- NOTE | 2019-11-20 13:08 | Emergency Department Note ---
Entered by Silvia Duggan acting as a scribe for Chema Acosta MD ED Provider Note CHIEF COMPLAINT: SOB HISTORY OF PRESENT ILLNESS: The patient is a 64 year old female who presents to the Emergency Room with complaints of SOB. She notes cough, sputum production, weakness, fever and congestion. Symptoms started mildly a week or two ago but worsened over the last two days. She was in the ER for anemia 7 days ago. No relieving factors. Pain 0/10. Pt denies LOC, headache, chills, diaphoresis, visual changes, neck pain, chest pain, nausea, vomiting, abdominal pain, back pain, hematochezia, urinary symptoms, numbness, lymphadenopathy, rash, or other complaints. She is chair bound due to CP. She notes dark stools, but that has been present since taking iron supplements. REVIEW OF SYSTEMS: See HPI for pertinent positives and negatives. A total of ten systems were reviewed and were otherwise negative. PMHx/PSHx: CP Anemia SOCIAL HISTORY: Patient lives at home. . PHYSICAL EXAM: GENERAL: Awake, alert, tired-appearing, in no distress HENT: Normocephalic, atraumatic. Oropharynx unremarkable. EYES: PERRL. Pale conjunctiva. Sclera non-icteric. NECK: Inspection normal. Non-tender. Supple. No nuchal rigidity. FROM. No masses. RESPIRATORY: Clear to auscultation. No wheezes. No rales. Normal respiratory effort. CARDIAC: Normal rate. Normal rhythm. No murmurs. No rubs. Extremities warm and well perfused. Pulses equal. No JVD. GI: Soft, non-distended. No tenderness to palpation. No rebound or guarding. No masses. RECTAL: Deferred. MUSCULOSKELETAL: Atraumatic. Chest examination reveals no tenderness. The back is symmetrical on inspection without obvious abnormality. There is no CVA tenderness to palpation. No joint edema. LOWER EXTREMITIES: Calves are equal size bilaterally and non-tender. No discoloration. +1 lower extremity edema. Chronic venous discoloration. NEURO: Normal sensorium. No sensory deficits noted. Lower extremity weakness(chronic per patient) SKIN: No rash or jaundice noted. EMERGENCY DEPARTMENT COURSE: 1259: The patient was evaluated in room C10, and a complete history and physical examination were performed. Patient's past records were reviewed. Patient was seen in the ED on 11/13/2019 for anemia and black stools. Her hemoglobin was stable, and she was discharged to follow up with her PCP. 1530: I updated the patient on her current lab and imaging results. She reports feeling improved. A repeat lactate has been ordered. 1646: Patient's repeat lactate is elevated. I updated the patient on her current results. She verbalized agreement with the treatment plan. She will be evaluated for further care by a hospitalist. 1730: I discussed the patient's case with JEYSON Marshall, who will evaluate the patient for further management and care with Dr. Michelle as the attending physician. MEDICAL DECISION MAKING: Continuous Cardiac Monitoring: An order was placed for continuous cardiac monitoring. The monitor shows a rate of 69 with sinus rhythm. C10 Prior records/ancillary studies reviewed. Triage Nursing notes reviewed and agree them. The patient's history was concerning for shortness of breath, cough, congestion and weakness. Differential diagnosis: Etiologies such as pneumonia, bronchitis, COPD, reactive airway disease, CHF, cardiac ischemia, pulmonary embolism, pneumothorax, musculoskeletal, infections, gastrointestinal, as well as others were entertained. Physical examination: As above. No hypoxia. ER treatment provided: Saline hydration Monitoring On reassessment the patient felt better. Diagnostic interpretation by me: The electrocardiogram was negative for pathologic change. The labs revealed pancytopenia and significant anemia on CBC. Mild hyperglycemia on chemistry panel. Troponin and BNP negative. Urinalysis unremarkable. Lactate mildly elevated. Repeat lactate mildly elevated. Imaging studies: Chest x-ray question congestive change. There was no evidence of pneumonia. CT PE study was performed. No pulmonary embolus. No pneumonia or significant signs of CHF. The patient presented with flulike symptoms. Flu testing was negative. Pneumonia work-up was negative as well. She was short of breath. She is very anemic but is hemodynamically stable at the moment. Emergency transfusion was not performed. The patient had an elevated lactate. An infectious source was investigated but none found except for a clinical bronchitis. Repeat lactate was performed and was the same. This could be due to the patient's anemia and other medical issues. Given the anemia, symptoms and the above work-up further management in the hospital was deemed appropriate. Consultation: A consultation was placed with the hospitalist. The case was discussed and diagnostics were reviewed. The patient was evaluated in the ER for further treatment. IMPRESSION: Shortness of breath Cough Elevated serum lactate Anemia PLAN: Being evaluated by a hospitalist The scribe's documentation has been prepared under my direction and personally reviewed by me in its entirety. I confirm that the note above accurately reflects all work, treatment, procedures, and medical decision making performed by me. Impression & Plan Shortness of breath, Cough, Elevated serum lactate dehydrogenase, Anemia Past Med/Surg History Surgical History H/O Achilles tendon repair (Chronic) H/O section (Chronic) H/O wisdom tooth extraction (Chronic) History of Achilles tendon repair History of section History of colonoscopy History of D&C (Chronic) History of dilatation and curettage History of esophagogastroduodenoscopy (EGD) History of tooth extraction Family History Father Family history of diabetes mellitus Other No pertinent family history Social History Preferred Language: Icelandic Communication Ability: Effective Bariatric Physician Required: No Beliefs That Will Affect Care: None marital status: Current Living Situation: Spouse and Family Current Living Situation Comment: Lives with , Sister and grandson Other Information That Helps Us Care for You: No Feels Safe at Home: Yes Safety Concerns: Feels Safe At This Time Smoking Status: Never smoker Second Hand Exposure: Yes (PREVIOUS EXPOSURE) ; Hx Alcohol Use: No Hx Substance Use: No Results & Data Vital Signs Vital Signs - 24 hr 11/20/19 13:00 11/20/19 13:01 11/20/19 13:58 Temperature 36.7 C Temperature Source Oral Pulse Rate 69 68 68 Pulse Rate from SpO2 Sensor 69 68 Pulse Rhythm Regular Pulse Strength Normal Respiratory Rate 16 22 14 Respiratory Effort / Characteristics Non-Labored Spontaneous Respiratory Depth Normal Respiratory Pattern Regular Blood Pressure 122/90 122/90 111/82 Blood Pressure Mean 100 99 93 Blood Pressure Position Lying Pulse Oximetry 95 93 92 Oxygen Delivery Method Room Air Sepsis Recent Fever Within 48 Hours No Sepsis New/Unexplained Change in Mental Status No Sepsis Action Taken by Nursing No Action Required 11/20/19 14:00 11/20/19 14:30 11/20/19 15:00 Temperature Temperature Source Pulse Rate 69 67 68 Pulse Rate from SpO2 Sensor 69 67 68 Pulse Rhythm Pulse Strength Respiratory Rate 12 14 18 Respiratory Effort / Characteristics Respiratory Depth Respiratory Pattern Blood Pressure 122/82 114/79 127/68 Blood Pressure Mean 105 96 99 Blood Pressure Position Pulse Oximetry 92 92 94 Oxygen Delivery Method Sepsis Recent Fever Within 48 Hours Sepsis New/Unexplained Change in Mental Status Sepsis Action Taken by Nursing 11/20/19 15:01 11/20/19 15:41 11/20/19 16:00 Temperature Temperature Source Pulse Rate 68 64 Pulse Rate from SpO2 Sensor 68 64 Pulse Rhythm Pulse Strength Respiratory Rate 19 15 Respiratory Effort / Characteristics Respiratory Depth Respiratory Pattern Blood Pressure 114/83 135/85 Blood Pressure Mean 97 99 Blood Pressure Position Pulse Oximetry 94 94 Oxygen Delivery Method Sepsis Recent Fever Within 48 Hours Sepsis New/Unexplained Change in Mental Status Sepsis Action Taken by Nursing 11/20/19 16:01 11/20/19 16:30 11/20/19 17:00 Temperature Temperature Source Pulse Rate 64 66 65 Pulse Rate from SpO2 Sensor 65 66 63 Pulse Rhythm Pulse Strength Respiratory Rate 17 12 11 L Respiratory Effort / Characteristics Respiratory Depth Respiratory Pattern Blood Pressure 157/68 H 120/74 Blood Pressure Mean 76 79 Blood Pressure Position Pulse Oximetry 92 93 Oxygen Delivery Method Sepsis Recent Fever Within 48 Hours Sepsis New/Unexplained Change in Mental Status Sepsis Action Taken by Nursing 11/20/19 17:01 11/20/19 17:30 11/20/19 18:00 Temperature Temperature Source Pulse Rate 66 66 68 Pulse Rate from SpO2 Sensor 66 66 67 Pulse Rhythm Pulse Strength Respiratory Rate 13 13 13 Respiratory Effort / Characteristics Respiratory Depth Respiratory Pattern Blood Pressure 118/75 124/76 Blood Pressure Mean 99 99 Blood Pressure Position Pulse Oximetry 95 94 93 Oxygen Delivery Method Sepsis Recent Fever Within 48 Hours Sepsis New/Unexplained Change in Mental Status Sepsis Action Taken by Nursing 11/20/19 18:01 Temperature Temperature Source Pulse Rate 67 Pulse Rate from SpO2 Sensor 67 Pulse Rhythm Pulse Strength Respiratory Rate 13 Respiratory Effort / Characteristics Respiratory Depth Respiratory Pattern Blood Pressure Blood Pressure Mean Blood Pressure Position Pulse Oximetry 93 Oxygen Delivery Method Sepsis Recent Fever Within 48 Hours Sepsis New/Unexplained Change in Mental Status Sepsis Action Taken by Residential Medications Current Medication List: was personally reviewed by me Laboratory Data Attestation: I reviewed the patient's lab results. Result diagrams: 11/20/19 13:23 11/20/19 13:23 Lab Results 11/20/19 11/20/19 11/20/19 Range/Units 13:05 13:23 13:23 WBC (4.8-10.8) K/uL RBC (4.2-5.4) M/uL Hgb (12.0-16.0) g/dL Hct (37-47) % MCV (80-100) fL MCH (25-34) pg MCHC (32-36) g/dL RDW Std Deviation (36.4-46.3) fL RDW Coeff of Bradley (11.5-14.5) % Plt Count (130-400) K/uL MPV (7.4-10.4) fL Immature Gran % (Auto) % Neut % (Auto) % Lymph % (Auto) % [place] % (Auto) % Eos % (Auto) % Baso % (Auto) % Immature Gran # (Auto) (0.00-0.02) K/uL Neut # (Auto) (1.4-6.5) K/uL Lymph # (Auto) (1.2-3.4) K/uL [place] # (Auto) (0.11-0.59) K/uL Eos # (Auto) (0-0.5) K/uL Baso # (Auto) (0-0.2) K/uL Platelet Estimate (Normal) Giant Platelets Hypochromasia Ovalocytes Sodium (136-145) mmol/L Potassium (3.5-5.1) mmol/L Chloride (98-107) mmol/L Carbon Dioxide (21-32) mmol/L Anion Gap (3-11) BUN (7-18) mg/dl Creatinine (0.6-1.2) mg/dl Est Cr Clr Drug Dosing ml/min Est GFR ( Amer) Est GFR (Non-Af Amer) BUN/Creatinine Ratio (10-20) Glucose (70-99) mg/dl Lactate 2.2 H* (0.4-2.0) mmol/L Calcium (8.5-10.1) mg/dl Magnesium (1.8-2.4) mg/dl Total Bilirubin (0.2-1) mg/dl AST (15-37) U/L ALT (12-78) U/L Alkaline Phosphatase (45-117) U/L Troponin I (0-0.045) ng/ml NT-Pro-B Natriuret Pep (0-900) pg/ml Total Protein (6.4-8.2) gm/dl Albumin (3.4-5.0) gm/dl Globulin (2.5-4.0) gm/dl Albumin/Globulin Ratio (0.9-2) TSH (0.300-4.500) uIu/ml Free T4 (0.8-1.6) ng/dl Urine Color Urine Appearance (Clear) Urine pH (4.5-7.5) Ur Specific [place] (1.000-1.030) Urine Protein (Negative) Urine Glucose (UA) (Negative) Urine Ketones (Negative) Urine Blood (Negative) Urine Nitrite (Negative) Urine Bilirubin (Negative) Urine Urobilinogen (Negative) Ur Leukocyte Esterase (Negative) Influenza Type A Ag Neg for Influ A (Neg) Influenza Type B Ag Neg for Influ B (Neg) Blood Type A Positive Antibody Screen NEGATIVE Crossmatch See Detail 11/20/19 11/20/19 11/20/19 Range/Units 13:23 13:23 13:40 WBC 2.77 L (4.8-10.8) K/uL RBC 2.50 L (4.2-5.4) M/uL Hgb 7.3 L (12.0-16.0) g/dL Hct 24.7 L (37-47) % MCV 98.8 (80-100) fL MCH 29.2 (25-34) pg MCHC 29.6 L (32-36) g/dL RDW Std Deviation 61.2 H (36.4-46.3) fL RDW Coeff of Bradley 17.3 H (11.5-14.5) % Plt Count 99 L (130-400) K/uL MPV 12.3 H (7.4-10.4) fL Immature Gran % (Auto) 0.0 % Neut % (Auto) 57.1 % Lymph % (Auto) 27.4 % [place] % (Auto) 9.0 % Eos % (Auto) 5.8 % Baso % (Auto) 0.7 % Immature Gran # (Auto) 0.00 (0.00-0.02) K/uL Neut # (Auto) 1.58 (1.4-6.5) K/uL Lymph # (Auto) 0.76 L (1.2-3.4) K/uL [place] # (Auto) 0.25 (0.11-0.59) K/uL Eos # (Auto) 0.16 (0-0.5) K/uL Baso # (Auto) 0.02 (0-0.2) K/uL Platelet Estimate Decreased L (Normal) Giant Platelets 1+ Hypochromasia Present Ovalocytes 1+ Sodium 141 (136-145) mmol/L Potassium 3.7 (3.5-5.1) mmol/L Chloride 108 H (98-107) mmol/L Carbon Dioxide 28 (21-32) mmol/L Anion Gap 5.0 (3-11) BUN 12 (7-18) mg/dl Creatinine 0.68 (0.6-1.2) mg/dl Est Cr Clr Drug Dosing 99.1 ml/min Est GFR ( Amer) 107.1 Est GFR (Non-Af Amer) 92.4 BUN/Creatinine Ratio 17.7 (10-20) Glucose 261 H (70-99) mg/dl Lactate (0.4-2.0) mmol/L Calcium 8.9 (8.5-10.1) mg/dl Magnesium 1.9 (1.8-2.4) mg/dl Total Bilirubin 0.4 (0.2-1) mg/dl AST 33 (15-37) U/L ALT 29 (12-78) U/L Alkaline Phosphatase 111 (45-117) U/L Troponin I < 0.015 (0-0.045) ng/ml NT-Pro-B Natriuret Pep 88 (0-900) pg/ml Total Protein 7.1 (6.4-8.2) gm/dl Albumin 3.0 L (3.4-5.0) gm/dl Globulin 4.1 H (2.5-4.0) gm/dl Albumin/Globulin Ratio 0.7 L (0.9-2) TSH 15.500 H (0.300-4.500) uIu/ml Free T4 1.14 (0.8-1.6) ng/dl Urine Color Dark Yellow Urine Appearance Clear (Clear) Urine pH 5.5 (4.5-7.5) Ur Specific [place] 1.034 H (1.000-1.030) Urine Protein Negative (Negative) Urine Glucose (UA) Trace H (Negative) Urine Ketones Trace H (Negative) Urine Blood Negative (Negative) Urine Nitrite Negative (Negative) Urine Bilirubin Negative (Negative) Urine Urobilinogen Negative (Negative) Ur Leukocyte Esterase Negative (Negative) Influenza Type A Ag (Neg) Influenza Type B Ag (Neg) Blood Type Antibody Screen Crossmatch 11/20/19 Range/Units 16:02 WBC (4.8-10.8) K/uL RBC (4.2-5.4) M/uL Hgb (12.0-16.0) g/dL Hct (37-47) % MCV (80-100) fL MCH (25-34) pg MCHC (32-36) g/dL RDW Std Deviation (36.4-46.3) fL RDW Coeff of Bradley (11.5-14.5) % Plt Count (130-400) K/uL MPV (7.4-10.4) fL Immature Gran % (Auto) % Neut % (Auto) % Lymph % (Auto) % [place] % (Auto) % Eos % (Auto) % Baso % (Auto) % Immature Gran # (Auto) (0.00-0.02) K/uL Neut # (Auto) (1.4-6.5) K/uL Lymph # (Auto) (1.2-3.4) K/uL [place] # (Auto) (0.11-0.59) K/uL Eos # (Auto) (0-0.5) K/uL Baso # (Auto) (0-0.2) K/uL Platelet Estimate (Normal) Giant Platelets Hypochromasia Ovalocytes Sodium (136-145) mmol/L Potassium (3.5-5.1) mmol/L Chloride (98-107) mmol/L Carbon Dioxide (21-32) mmol/L Anion Gap (3-11) BUN (7-18) mg/dl Creatinine (0.6-1.2) mg/dl Est Cr Clr Drug Dosing ml/min Est GFR ( Amer) Est GFR (Non-Af Amer) BUN/Creatinine Ratio (10-20) Glucose (70-99) mg/dl Lactate 2.2 H* (0.4-2.0) mmol/L Calcium (8.5-10.1) mg/dl Magnesium (1.8-2.4) mg/dl Total Bilirubin (0.2-1) mg/dl AST (15-37) U/L ALT (12-78) U/L Alkaline Phosphatase (45-117) U/L Troponin I (0-0.045) ng/ml NT-Pro-B Natriuret Pep (0-900) pg/ml Total Protein (6.4-8.2) gm/dl Albumin (3.4-5.0) gm/dl Globulin (2.5-4.0) gm/dl Albumin/Globulin Ratio (0.9-2) TSH (0.300-4.500) uIu/ml Free T4 (0.8-1.6) ng/dl Urine Color Urine Appearance (Clear) Urine pH (4.5-7.5) Ur Specific [place] (1.000-1.030) Urine Protein (Negative) Urine Glucose (UA) (Negative) Urine Ketones (Negative) Urine Blood (Negative) Urine Nitrite (Negative) Urine Bilirubin (Negative) Urine Urobilinogen (Negative) Ur Leukocyte Esterase (Negative) Influenza Type A Ag (Neg) Influenza Type B Ag (Neg) Blood Type Antibody Screen Crossmatch Administered Medications Atorvastatin Calcium (Lipitor) 40 mg PO HS [facility] Stop: 12/20/19 20:59 Last Admin: 11/20/19 21:16 Dose: 40 mg Documented by: [id number] Gabapentin (Neurontin) 600 mg PO HS [facility] Stop: 12/20/19 20:59 Last Admin: 11/20/19 21:17 Dose: 600 mg Documented by: [id number] Furosemide 40 mg/ Syringe 4 mls @ 4 mls/min IV TODAY@2130 [facility] Stop: 11/20/19 23:59 Last Admin: 11/20/19 21:19 Dose: 4 mls/min Documented by: [id number] Insulin Aspart (Novolog Flexpen) 0 units SC ACHS [facility] Stop: 12/20/19 20:59 Last Admin: 11/20/19 21:18 Dose: 7 units Documented by: [id number] Cosigned by: [id number] Insulin Glargine (Lantus Solostar Pen) 15 units SC BID [facility] Stop: 12/20/19 20:59 Last Admin: 11/20/19 21:16 Dose: 15 units Documented by: [id number] Cosigned by: [id number] Ioversol (Optiray 320 125ml) 120 ml IV ONCE PRN PRN Reason: Interaction Checking Stop: 11/24/19 15:31 Last Admin: 11/20/19 15:32 Dose: 120 ml Documented by: [id number] Discontinued Medications Sodium Chloride (Nss 1000ml) 1,000 mls @ 125 mls/hr IV .Q8H [facility]ST[facility] Stop: 11/20/19 21:14 Last Infusion: 11/20/19 21:28 Dose: 0 mls/hr Documented by: [id number] Admin: 11/20/19 14:03 Dose: 125 mls/hr Documented by: [id number] Imaging Data Radiologist's Impression: Radiology results as stated below per my review and the radiologist's interpretation: SINGLE VIEW CHEST CLINICAL HISTORY: Generalized weakness. FINDINGS: An AP, portable, upright chest radiograph is compared to study dated 11/13/2019. The examination is degraded by portable technique and patient rotation. The heart is enlarged. There is mild pulmonary vascular congestion. There is mild chronic elevation right hemidiaphragm. Atelectasis is seen at the lung bases. No large pleural effusion is identified. No pneumothorax is seen. The skeletal structures are osteopenic. The bony thorax is grossly intact. IMPRESSION: Cardiomegaly with evidence of mild congestive failure. ACT 112: Negative or not required by law. Electronically signed by: Selvin Barroso M.D. 11/20/2019 1:[address] angio chest PE protocol CLINICAL HISTORY: 64 years-old Female presenting with shortness of breath, weakness, clinical concern for pulmonary bolus. TECHNIQUE: Multidetector CT angiography of the chest was performed after administration of intravenous contrast. 3-D volumetric and/or maximum intensity projection (MIP) images were subsequently reconstructed for review. IV contrast: 120 mL of Optiray 320. One or more dose lowering techniques were used consistent with the principles of ALARA (as low as reasonably achievable), including automatic exposure control, mA or kV adjustment to individual patient size, and/or use of iterative reconstruction. COMPARISON: 07/12/2017. CT DOSE (mGy.cm): The estimated cumulative dose is 799.93 mGy.cm. FINDINGS: Division Commander topogram: Unremarkable. Pulmonary vasculature: The study is adequate for assessment of the pulmonary vascular tree. No filling defect within the pulmonary arteries to suggest embolus. Main pulmonary artery is not enlarged. No flattening of the interventricular septum. No intracardiac filling defect. Reflux of contrast into the IVC and hepatic veins. This likely indicates elevated right heart pressure. Remaining chest: Soft tissues: Normal thoracic inlet. Thyroid not visualized or atrophic. No axillary, supraclavicular, mediastinal, or hilar lymphadenopathy. Normal aorta. Trace aortic valve calcification. Mild multichamber enlargement of the heart. No pericardial or pleural effusion. Nodular morphology of the liver suggesting underlying fibrosis. Lungs and airways: No pneumothorax. Central airways patent. Pulmonary arteries mildly enlarged relative to adjacent bronchi. No interlobular septal thickening. Mosaic attenuation. Minimal dependent subpleural consolidation likely atelectasis. No other focal infiltrate. Solid subpleural 4 mm left lower lobe nodule (series 4 image 92), unchanged. Few additional punctate solid nodules, nonspecific. Musculoskeletal: Degenerative changes of the spine. IMPRESSION: 1. No evidence of pulmonary embolus. No acute intrathoracic pathology. 2. Cardiomegaly with evidence of elevated right heart pressure. Minimal volume overload. No erma pulmonary edema. 3. Nodular morphology of the liver consistent with fibrosis. This could either represent primary cirrhosis or congestive hepatopathy. ACT 112: Negative or not required by law. Electronically signed by: Norris Pineda M.D. 11/20/2019 3:42 PM ECG Data Attestation: I personally reviewed and interpreted this ECG as follows: Indication: + weakness Rate (beats per minute): 68 Rhythm: sinus rhythm ECG Intervals/blocks: + First degree AV block and + Normal QRS ECG [place]: + Normal ECG ST segments: no ST depression and no ST elevation ECG Findings: + Other (low voltage QRS); no PACs and no PVCs Blood Pressure Blood Pressure Findings: Normal blood pressure Discharge Plan Visit Data *Final* Discharge Date/Time: 11/20/19 20:13 Chief Complaint: Flu Like Symptoms Stated Complaint: flu symptoms ED Provider: Chema Acosta Discharge Problem: Shortness of breath, Cough, Elevated serum lactate dehydrogenase, Anemia Patient Disposition: Admitted As Inpatient Discharge Instructions Interventions: ED Discharge Assessment Last Done: 11/20/19 20:13 Discharge Problem: Anemia Qualifiers: Anemia type: unspecified type Qualified Code(s): D64.9 - Anemia, unspecified The scribe's documentation has been prepared under my direction and personally reviewed by me in its entirety. I confirm that the note above accurately reflects all work, treatment, procedures, and medical decision making performed by me.
[2019-11-20] MEDS ORDERED: SODIUM CHLORIDE 0.9% 1000ML 1,000 ML IV SCH (13:15)
--- NOTE | 2019-11-20 13:32 | XRay Report ---
SINGLE VIEW CHEST CLINICAL HISTORY: Generalized weakness. FINDINGS: An AP, portable, upright chest radiograph is compared to study dated 11/13/2019. The examinat ion is degraded by portable technique and patient rotation. The heart is enlarged. There is mild pulm onary vascular congestion. There is mild chronic elevation right hemidiaphragm. Atelectasis is seen a t the lung bases. No large pleural effusion is identified. No pneumothorax is seen. The skeletal stru ctures are osteopenic. The bony thorax is grossly intact. IMPRESSION: Cardiomegaly with evidence of mild congestive failure. ACT 112: Negative or not required by law. Electronically signed by: Selvin Barroso M.D. 11/20/2019 1:31 PM
[2019-11-20 13:50] LABS: Alanine Aminotransferase 29 U/L (12-78); Aspartate Aminotransferase 33 U/L (15-37); BUN Creatinine Ratio 17.7 (10-20); Blood Urea Nitrogen 12 mg/dl (7-18); Calcium 8.9 mg/dl (8.5-10.1); Carbon Dioxide 28 mmol/L (21-32); Chloride 108 mmol/L (98-107); Creatinine Clr Calc Pharmacy 99.1 ml/min; Est GFR (African American) 107.1; Est GFR (Non-African American) 92.4; Glucose 261 mg/dl (70-99); Magnesium 1.9 mg/dl (1.8-2.4); Potassium 3.7 mmol/L (3.5-5.1); Sodium 141 mmol/L (136-145)
[2019-11-20 13:56] LABS: Basophils # (auto) 0.02 K/uL (0-0.2); Basophils % (auto) 0.7 %; Eosinophils # (auto) 0.16 K/uL (0-0.5); Eosinophils % (auto) 5.8 %; Giant Platelets 1+; Hematocrit (blood only) 24.7 % (37-47); Hemoglobin 7.3 g/dL (12.0-16.0); Hypochromasia Present; Lymphocytes # (auto) 0.76 K/uL (1.2-3.4); Lymphocytes % (auto) 27.4 %; Mean Corpuscular Hemoglobin 29.2 pg (25-34); Mean Corpuscular Hgb Conc 29.6 g/dL (32-36); Mean Corpuscular Volume 98.8 fL (80-100); Mean Platelet Volume 12.3 fL (7.4-10.4); Monocytes # (auto) 0.25 K/uL (0.11-0.59); Neutrophils # (auto) 1.58 K/uL (1.4-6.5); Neutrophils % (auto) 57.1 %; Ovalocytes 1+; Platelet Count 99 K/uL (130-400); Platelet Estimate Decreased (Normal); RDW Coefficient of Variation 17.3 % (11.5-14.5); RDW Standard Deviation 61.2 fL (36.4-46.3); White Blood Count 2.77 K/uL (4.8-10.8)
[2019-11-20 14:01] LABS: Albumin Globulin Ratio 0.7 (0.9-2); Alkaline Phosphatase 111 U/L (45-117); Bilirubin,Total 0.4 mg/dl (0.2-1); Globulin 4.1 gm/dl (2.5-4.0); NT Pro B Type Natriuretic Pept 88 pg/ml (0-900); Total Protein 7.1 gm/dl (6.4-8.2); Troponin I < 0.015 ng/ml (0-0.045)
[2019-11-20 14:13] LABS: T4 Free Thyroxine 1.14 ng/dl (0.8-1.6)
[2019-11-20 14:25] LABS: Appearance Urine Clear (Clear); Bilirubin Urine Negative (Negative); Blood Urine Negative (Negative); Color Urine Dark Yellow; Glucose Urine UA Trace (Negative); Ketones Urine Trace (Negative); Leukocyte Esterase Urine Negative (Negative); Nitrite Urine Negative (Negative); Protein Urine Negative (Negative); Specific Gravity Urine 1.034 (1.000-1.030); Urobilinogen Urine Negative (Negative); pH Urine 5.5 (4.5-7.5)
[2019-11-20] MEDS ORDERED: OPTIRAY 320 125ml IV PRN (15:32)
--- NOTE | 2019-11-20 15:44 | CT Scan Report ---
CT angio chest PE protocol CLINICAL HISTORY: 64 years-old Female presenting with shortness of breath, weakness, clinical concern for pulmonary bolus. TECHNIQUE: Multidetector CT angiography of the chest was performed after administration of intravenou s contrast. 3-D volumetric and/or maximum intensity projection (MIP) images were subsequently reconst ructed for review. IV contrast: 120 mL of Optiray 320. One or more dose lowering techniques were used consistent with the principles of ALARA (as low as reasonably achievable), including automatic expos ure control, mA or kV adjustment to individual patient size, and/or use of iterative reconstruction. COMPARISON: 07/12/2017. CT DOSE (mGy.cm): The estimated cumulative dose is 799.93 mGy.cm. FINDINGS: Senior Data Warehouse Architect topogram: Unremarkable. Pulmonary vasculature: The study is adequate for assessment of the pulmonary vascular tree. No filling defect within the pul monary arteries to suggest embolus. Main pulmonary artery is not enlarged. No flattening of the inter ventricular septum. No intracardiac filling defect. Reflux of contrast into the IVC and hepatic veins . This likely indicates elevated right heart pressure. Remaining chest: Soft tissues: Normal thoracic inlet. Thyroid not visualized or atrophic. No axillary, supraclavicular , mediastinal, or hilar lymphadenopathy. Normal aorta. Trace aortic valve calcification. Mild multich kevin enlargement of the heart. No pericardial or pleural effusion. Nodular morphology of the liver s uggesting underlying fibrosis. Lungs and airways: No pneumothorax. Central airways patent. Pulmonary arteries mildly enlarged relati ve to adjacent bronchi. No interlobular septal thickening. Mosaic attenuation. Minimal dependent subp leural consolidation likely atelectasis. No other focal infiltrate. Solid subpleural 4 mm left lower lobe nodule (series 4 image 92), unchanged. Few additional punctate solid nodules, nonspecific. Musculoskeletal: Degenerative changes of the spine. IMPRESSION: 1. No evidence of pulmonary embolus. No acute intrathoracic pathology. 2. Cardiomegaly with evidence of elevated right heart pressure. Minimal volume overload. No erma pu lmonary edema. 3. Nodular morphology of the liver consistent with fibrosis. This could either represent primary cir rhosis or congestive hepatopathy. ACT 112: Negative or not required by law. Electronically signed by: Norris Pineda M.D. 11/20/2019 3:42 PM
--- NOTE | 2019-11-20 16:35 | Electrocardiogram Report ---
Test Reason : Blood Pressure : / mmHG Vent. Rate : 068 BPM Atrial Rate : 068 BPM P-R Int : 216 ms QRS Dur : 094 ms QT Int : 420 ms P-R-T Axes : 058 -05 039 degrees QTc Int : 446 ms Sinus rhythm with 1st degree A-V block Low voltage QRS Diffuse Minor Nonspecific T wave abnormality Abnormal ECG When compared with ECG of 13-NOV-2019 15:02, No significant change was found Confirmed by Jose Ritter ([id number]) on 11/20/2019 4:34:41 PM Referred By: REFERRED SELF Confirmed By:Jose Ritter
--- NOTE | 2019-11-20 18:23 | History & Physical Report ---
Date of Service November 20, 2019 Assessment & Plan (1) Shortness of breath: Recent flulike symptoms reported, however, she does not appear to have any respiratory distress and did not cough the entire time I was in the examination room. Flu was checked and negative a CT PE was done revealing no evidence of PE and no evidence of pneumonia or other infiltrate. Travel history is negative. She is afebrile not requiring any supplemental oxygen. There is no tachypnea present. I believe her shortness of breath is likely secondary to symptomatic anemia as this has been approximately 2 to 3 g of hemoglobin less than her baseline. She is also bedbound so this is difficult to ascertain as she is not up and walking around. BNP was 88. She does not appear to be fluid overloaded. Chest x-ray was otherwise clear. Troponin was negative and no chest pain was reported. We will plan to transfuse 2 units of blood and reassess her symptoms in the morning. (2) Anemia: Plan as above. (3) Cirrhosis: Patient with a recent history of blackish stools after starting iron supplementation. There is some concern for possible chronic blood loss. She has a history of known esophageal varices that are nonbleeding as well as portal hypertension. She is on nadolol 40 daily and her heart rate is controlled in the 60s. She has no evidence of gross bleeding today. Last colonoscopy in 2016 revealed internal hemorrhoids with repeat due in 10 years. Last EGD was 02/2019 where above findings were noted. She does have chronic pancytopenia likely secondary to chronic disease. She is currently compensated (4) Pancytopenia: Chronic, likely secondary to comorbidities. Defer to outpatient work-up. (5) Cough: Possible bronchitis, as stated above no flu or pneumonia is evident. Continue supportive care efforts as needed. (6) Ambulatory dysfunction: Patient is mostly bedbound for my understanding of her baseline. She is physically deconditioned and cannot sit up on her own in bed. (7) Hypothyroidism: TSH is slightly high although would defer any adjustment of thyroid hormone to primary care doctor when patient is feeling better. This may be off as a result of her recent illness. (8) Cerebral palsy: (9) Obesity: (10) DMII (diabetes mellitus, type 2): Basal bolus insulin while hospitalized. Hold metformin and other injectables per home regimen. Recheck A1c in a.m. (11) DVT prophylaxis: SCDs for now with potential chronic blood loss being further investigated. Full code as discussed with patient and her on admission Disposition-to med telemetry Renetta Michelle DO [facility] Hospitalist History of Present Illness Chief Complaint: SOB Primary Care Provider: Rajwinder Carter DO 64-year-old female with cerebral palsy who is bedbound presents with 3 to 4 weeks of cough and shortness of breath, with shortness of breath becoming worse over the last week. She reports being more short of breath with lying flat and has to sit upright. She was recently seen in the ER on 11/12 as a referral from her physician for black stools and shortness of breath. She was noted to have been recently started on iron supplements and is known to be chronically anemic with a baseline H&H of 10 and 30. Her hemoglobin was rechecked in the ER and was 7.8 at which point a transfusion was not thought to be necessary so long as there was close outpatient follow-up. No significant treatments were rendered and she was worked up and sent home. She followed up with her primary care doctor again on 11/17 with H&H revealing 7.6/26.9 and a platelet count of 89 with a white blood cell count of 2.85. The patient is also scheduled to have an endoscopy in early December. She has a known history of NAFLD cirrhosis and has known nonbleeding varices with portal hypertension. Review of systems reveals reports of increased swelling in her legs, some intermittent productive cough, and a headache that is persisted all week. She denies recent fevers or chills but had those 1 week ago. Her mouth is dry and she reports not really eating or drinking much. She denies any abdominal symptoms or any diarrhea. She denies any gross blood in her stool. Her was present at the bedside and both were consented for blood. Allergies Allergy/AdvReac Type Severity Reaction Status Date / Time Penicillins Allergy Intermediate Hives Verified 11/20/19 14:59 Home Medications Home Medications Medication Instructions Recorded Confirmed Type Lantus Solostar U-100 Insulin 24 unit SUBCUT HS 06/16/18 11/20/19 History ascorbic acid (vitamin C) [Vitamin 500 mg PO QAM 06/16/18 11/20/19 History C] aspirin [Aspir-81] 81 mg PO QAM 06/16/18 11/20/19 History cyclobenzaprine 10 mg PO HS 06/16/18 11/20/19 History dulaglutide 1.5 mg SUBCUT MO 06/16/18 11/20/19 History furosemide [Lasix] 20 mg PO QAM 06/16/18 11/20/19 History gabapentin 300 mg PO UD 06/16/18 11/20/19 History levothyroxine 150 mcg PO QAM 06/16/18 11/20/19 History metformin 1,000 mg PO BIDM 06/16/18 11/20/19 History potassium chloride 10 meq PO QAM 06/16/18 11/20/19 History trazodone 50 mg PO HS 06/16/18 11/20/19 History Centrum Silver 1 tab PO QAM 07/19/18 11/20/19 History escitalopram oxalate 20 mg PO QAM 07/19/18 11/20/19 History fluticasone propionate [Flonase 2 spray INTRANASAL QAM 07/19/18 11/20/19 History Allergy Relief] gabapentin 600 mg PO HS 07/19/18 11/20/19 History ferrous sulfate 325 mg PO QAM 02/21/19 11/20/19 History tamsulosin 0.4 mg capsule 0.4 mg PO QAM #30 cap 06/26/19 11/20/19 History albuterol sulfate 2 puff INHALATION Q4H PRN 09/09/19 11/20/19 History atorvastatin 40 mg PO HS 09/09/19 11/20/19 History nadolol 40 mg PO QAM 09/09/19 11/20/19 History oxybutynin chloride 5 mg PO BID 09/09/19 11/20/19 History pantoprazole 40 mg PO QAM 09/09/19 11/20/19 History ketoconazole 1 applic TOPICAL 2XWK 11/20/19 11/20/19 History nystatin 1 applic TOPICAL TID 11/20/19 11/20/19 History Past Med/Surg History Medical History (Updated 11/20/19 @ 20:03 by Renetta Michelle DO) Acute cystitis Ambulatory dysfunction Ambulatory dysfunction (Acute) Anxiety Asthma (Chronic) DOES NOT USE INH. REPORTS USING NEB TREATMENTS BID. Bilateral lower extremity edema (Chronic) Cardiac murmur Cerebral palsy (Chronic) Chest pain (Acute) Chronic back pain Chronic pain (Chronic) Complicated UTI (urinary tract infection) Contusion of knee, right (Acute) Contusion of leg (Acute) Cough CHRONIC PER PT REPORT Depression DM type 2 (diabetes mellitus, type 2) (Chronic) IDDM Dyslipidemia (Chronic) Encounter for pre-operative examination Fall (Acute) Fibromyalgia (Chronic) VIDA (generalized anxiety disorder) (Chronic) GERD (gastroesophageal reflux disease) History of kidney stones History of migraine (Chronic) Hoarseness of voice CHRONIC PER PT REPORT Hypertension Hypothyroidism (Chronic) Major depressive disorder, recurrent, moderate (Chronic) NG (nonalcoholic steatohepatitis) (Chronic) Obesity (BMI 30-39.9) Obesity, morbid (more than 100 lbs over ideal weight or BMI > 40) (Chronic) Obstructive sleep apnea (Chronic) CPAP + OXYGEN AT 2 LPM @ NIGHT On home oxygen therapy 2 LPM @ NIGHT + CPAP Osteoarthritis (Chronic) Pancreatic cyst Pleurisy (Acute) Poor historian Right ankle sprain (Acute) Right knee sprain (Acute) SOB (shortness of breath) on exertion Urinary catheter dysfunction (Acute) Venous insufficiency (Chronic) VRE (vancomycin resistant enterococcus) culture positive (Acute) Surgical History H/O Achilles tendon repair (Chronic) H/O section (Chronic) H/O wisdom tooth extraction (Chronic) History of Achilles tendon repair History of section History of colonoscopy History of D&C (Chronic) History of dilatation and curettage History of esophagogastroduodenoscopy (EGD) History of tooth extraction Family History Father Family history of diabetes mellitus Other No pertinent family history Social History Preferred Language: Armenian Communication Ability: Effective 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: No Beliefs That Will Affect Care: Baptist Baptist Beliefs: Is Baptist marital status: Current Living Situation: Family Current Living Situation Comment: Lives with , Sister and grandson Feels Safe at Home: Yes, No Is there a partner from a previous relationship who is making you feel unsafe now?: No and Hesitant to Answer Smoking Status: Never smoker Second Hand Exposure: Yes (PREVIOUS EXPOSURE) ; Hx Alcohol Use: Yes Alcohol type: hard liquor Hx Substance Use: No Review of Systems Review of Systems: All systems reviewed & are unremarkable except as noted in HPI & below Physical Exam Physical Exam: CONSTITUTIONAL: obese, deconditioned, vitals as above, generally well-appearing EYES: PERRL, normal conjunctivae, no scleral icterus ENT: MMM RESPIRATORY: clear to auscultation bilaterally, no crackles, rales or wheezes, normal respiratory effort CARDIOVASCULAR: regular rate and rhythm, 3/6 JOSE , no gallops or rubs, no JVD, no peripheral edema GASTROINTESTINAL: soft, obese, nontender, nondistended, no guarding. MUSCULOSKELETAL: strength 5/5 throughout, head is normocephalic and atraumatic SKIN: warm and dry NEUROLOGIC: o facial palsy, no dysarthria. CN 2-12 grossly intact, normal cognition, normal speech, no gross focal deficits PSYCHIATRIC: alert cooperative and oriented to person, place and time. Results & Data Vital Signs (Past 12 Hours) Vital Signs Temp Pulse Resp BP Pulse Ox 11/20/19 18:01 67 13 93 11/20/19 18:00 68 13 124/76 93 11/20/19 17:30 66 13 118/75 94 11/20/19 17:01 66 13 95 11/20/19 17:00 65 11 L 120/74 11/20/19 16:30 66 12 157/68 H 93 11/20/19 16:01 64 17 92 11/20/19 16:00 64 15 135/85 94 11/20/19 15:41 114/83 11/20/19 15:01 68 19 94 11/20/19 15:00 68 18 127/68 94 11/20/19 14:30 67 14 114/79 92 11/20/19 14:00 69 12 122/82 92 11/20/19 13:58 68 14 111/82 92 11/20/19 13:01 68 22 122/90 93 11/20/19 13:00 36.7 C 69 16 122/90 95 Laboratory Results Short CBC 11/20/19 Range/Units 13:23 WBC 2.77 L (4.8-10.8) K/uL Hgb 7.3 L (12.0-16.0) g/dL Hct 24.7 L (37-47) % Plt Count 99 L (130-400) K/uL BMP 11/20/19 13:23 Sodium 141 Potassium 3.7 Chloride 108 H Carbon Dioxide 28 BUN 12 Creatinine 0.68 Glucose 261 H Calcium 8.9 Cardiac Enzymes 11/20/19 Range/Units 13:23 Troponin I < 0.015 (0-0.045) ng/ml Liver Function 11/20/19 Range/Units 13:23 Total Bilirubin 0.4 (0.2-1) mg/dl AST 33 (15-37) U/L ALT 29 (12-78) U/L Alkaline Phosphatase 111 (45-117) U/L Albumin 3.0 L (3.4-5.0) gm/dl Urine 11/20/19 Range/Units 13:40 Urine Color Dark Yellow Urine Appearance Clear (Clear) Urine pH 5.5 (4.5-7.5) Ur Specific Lambert 1.034 H (1.000-1.030) Urine Protein Negative (Negative) Urine Glucose (UA) Trace H (Negative) Diagnostic Findings CT angio chest PE protocol FINDINGS: Over Short And Damage Clerk topogram: Unremarkable. Pulmonary vasculature: The study is adequate for assessment of the pulmonary vascular tree. No filling defect within the pulmonary arteries to suggest embolus. Main pulmonary artery is not enlarged. No flattening of the interventricular septum. No intracardiac filling defect. Reflux of contrast into the IVC and hepatic veins. This likely indicates elevated right heart pressure. Remaining chest: Soft tissues: Normal thoracic inlet. Thyroid not visualized or atrophic. No axillary, supraclavicular, mediastinal, or hilar lymphadenopathy. Normal aorta. Trace aortic valve calcification. Mild multichamber enlargement of the heart. No pericardial or pleural effusion. Nodular morphology of the liver suggesting underlying fibrosis. Lungs and airways: No pneumothorax. Central airways patent. Pulmonary arteries mildly enlarged relative to adjacent bronchi. No interlobular septal thickening. Mosaic attenuation. Minimal dependent subpleural consolidation likely atelectasis. No other focal infiltrate. Solid subpleural 4 mm left lower lobe nodule (series 4 image 92), unchanged. Few additional punctate solid nodules, nonspecific. Musculoskeletal: Degenerative changes of the spine. IMPRESSION: 1. No evidence of pulmonary embolus. No acute intrathoracic pathology. 2. Cardiomegaly with evidence of elevated right heart pressure. Minimal volume overload. No erma pulmonary edema. 3. Nodular morphology of the liver consistent with fibrosis. This could either represent primary cirrhosis or congestive hepatopathy. SINGLE VIEW CHEST CLINICAL HISTORY: Generalized weakness. FINDINGS: An AP, portable, upright chest radiograph is compared to study dated 11/13/2019. The examination is degraded by portable technique and patient rotation. The heart is enlarged. There is mild pulmonary vascular congestion. There is mild chronic elevation right hemidiaphragm. Atelectasis is seen at the lung bases. No large pleural effusion is identified. No pneumothorax is seen. The skeletal structures are osteopenic. The bony thorax is grossly intact. IMPRESSION: Cardiomegaly with evidence of mild congestive failure. Medications Administered NSS Code Status & VTE Plan Code Status full (1) Anemia Anemia type: unspecified type Qualified Code(s): D64.9 - Anemia, unspecified (2) Cerebral palsy Cerebral palsy type: unspecified type Qualified Code(s): G80.9 - Cerebral palsy, unspecified
[2019-11-20] MEDS ORDERED: CARBOHYDRATES FOR HYPOGLYCEMIA PO PRN (20:17)
[2019-11-20] MEDS ORDERED: GLUCOSE 40% GEL 15 GM TUBE PO PRN (20:17)
[2019-11-20] MEDS ORDERED: GLUCAGON FOR INJ 1 MG VIAL SQ PRN (20:17)
[2019-11-20] MEDS ORDERED: POLYETHYLENE (MIRALAX) 17 GM PACK PO PRN (20:17)
[2019-11-20] MEDS ORDERED: SODIUM CHLORIDE 0.9% 250 ML IV PRN (20:17)
[2019-11-20] MEDS ORDERED: ACETAMINOPHEN 325 MG TAB PO PRN (20:17)
[2019-11-20] MEDS ORDERED: GLUCOSE 10 TABS/TUBE PO PRN (20:17)
[2019-11-20] MEDS ORDERED: DEXTROSE 50% 50 ML SYRINGE IV PRN (20:17)
[2019-11-20] MEDS ORDERED: ACETAMINOPHEN 325 MG TAB PO ONE (20:30)
[2019-11-20] MEDS: INSULIN GLARGINE SOLOSTAR 100 UNITS/ML 3 ML PEN SC SCH (21:16)
[2019-11-20] MEDS: ATORVASTATIN 40 MG TAB PO SCH (21:16)
[2019-11-20] MEDS: GABAPENTIN 600 MG TAB PO SCH (21:17)
[2019-11-20] MEDS: INSULIN ASPART 100 UNITS/ML 3 ML PEN SC SCH (21:18)
[2019-11-20] MEDS ORDERED: FUROSEMIDE 40 MG in SYRINGE 0 ML IV SCH (21:30)
[2019-11-21] MEDS: LEVOTHYROXINE SODIUM 150 MCG TABLET PO SCH (06:03)
[2019-11-21] MEDS: ASCORBIC ACID 500 MG TAB PO SCH (07:38)
[2019-11-21] MEDS: PANTOprazole 40 MG TAB PO SCH (07:38)
[2019-11-21] MEDS: POTASSIUM CHLORIDE 10 MEQ TABCR PO SCH (07:38)
[2019-11-21] MEDS: FLUTICASONE PROPIONATE NA SPR 16 GM BTL NAE SCH (07:38)
[2019-11-21] MEDS: GABAPENTIN 300 MG CAP PO SCH ×2 (07:38→13:24)
[2019-11-21] MEDS: ESCITALOPRAM OXALATE 20 MG TAB PO SCH (07:38)
[2019-11-21] MEDS: FUROSEMIDE 20 MG TAB PO SCH (07:38)
[2019-11-21] MEDS: nadoloL 40 MG TAB PO SCH (07:39)
[2019-11-21] MEDS: FERROUS SULFATE 325 MG TAB PO SCH (07:39)
[2019-11-21] MEDS: ASPIRIN 81 MG ECTAB PO SCH (07:39)
[2019-11-21] MEDS: TAMSULOSIN HCL 0.4 MG CAP PO SCH (07:39)
[2019-11-21] MEDS ORDERED: VANCOMYCIN CONSULT ACTIVE PRN (08:28)
[2019-11-21] MEDS: INSULIN ASPART 100 UNITS/ML 3 ML PEN SC SCH ×4 (08:31→21:10)
[2019-11-21] MEDS: INSULIN GLARGINE SOLOSTAR 100 UNITS/ML 3 ML PEN SC SCH ×2 (08:31→21:09)
[2019-11-21] MEDS ORDERED: VANCOMYCIN HCL 2,500 MG in SODIUM CHLORIDE 0.9% 500 ML IV ONE (09:00)
[2019-11-21 10:47] LABS: Hematocrit (blood only) 31.5 % (37-47); Hemoglobin 9.5 g/dL (12.0-16.0); Mean Corpuscular Hemoglobin 28.5 pg (25-34); Mean Corpuscular Hgb Conc 30.2 g/dL (32-36); Mean Corpuscular Volume 94.6 fL (80-100); RDW Coefficient of Variation 18.4 % (11.5-14.5); RDW Standard Deviation 62.7 fL (36.4-46.3); Red Blood Count 3.33 M/uL (4.2-5.4); White Blood Count 3.28 K/uL (4.8-10.8)
[2019-11-21 10:53] LABS: Mean Platelet Volume 11.7 fL (7.4-10.4); Platelet Count 97 K/uL (130-400)
[2019-11-21 11:07] LABS: Estimated Average Glucose 137 mg/dl; Hemoglobin A1C 6.4 % (4.5-5.6)
[2019-11-21 11:27] LABS: BUN Creatinine Ratio 16.9 (10-20); Calcium 8.6 mg/dl (8.5-10.1); Creatinine Clr Calc Pharmacy 107.3 ml/min; Est GFR (African American) 107.7; Est GFR (Non-African American) 92.9; Potassium 3.3 mmol/L (3.5-5.1)
[2019-11-21] MEDS ORDERED: GUAIFENESIN/DEXTROM SYRUP 200MG/20MG 10ML UDC PO ONE (14:45)
--- NOTE | 2019-11-21 16:01 | Pharmacy Report ---
Pharmacy Abx Dose Short Note - Date of Service November 21, 2019 - Assessment & Plan Assessment * 64 year old F receiving IV vancomycin for treatment of bacteremia. * Blood Cx are positive for GPC in 1 of 2 cultures. Plan Vancomycin * Vanc 2500mg IV x1 dose, then * Vanc 1500mg IV q12h * Goal trough level for bacteremia: 15 to 20 mcg/mL * Trough level ordered prior to the 4th maintenance dose. Pharmacy will continue to follow and will adjust dose/frequency as necessary. Thank you.
[2019-11-21] MEDS: ATORVASTATIN 40 MG TAB PO SCH (21:09)
[2019-11-21] MEDS: GABAPENTIN 600 MG TAB PO SCH (21:09)
[2019-11-21] MEDS: VANCOMYCIN HCL 1,500 MG in SODIUM CHLORIDE 0.9% 500 ML IV SCH (21:11)
--- NOTE | 2019-11-21 22:44 | Hospitalist Progress Note ---
Date of Service November 21, 2019 Assessment & Plan (1) Shortness of breath: Likely related to symptomatic anemia as this has improved with blood. (2) Anemia: Improved to expected level after overnight transfusion. (3) Cirrhosis: Patient with a recent history of blackish stools after starting iron supplementation. There is some concern for possible chronic blood loss. She has a history of known esophageal varices that are nonbleeding as well as portal hypertension. She is on nadolol 40 daily and her heart rate is controlled in the 60s. She has no evidence of gross bleeding. Last colonoscopy in 2017 revealed internal hemorrhoids with repeat due in 10 years. Last EGD was 02/2019. She does have chronic pancytopenia likely secondary to chronic disease. She is currently compensated. Cont outpatient workup as planned in one month. (4) Pancytopenia: Chronic, likely secondary to comorbidities. Defer to outpatient work-up. (5) Cough: Possible bronchitis, as stated above no flu or pneumonia is evident. Improved and she is afebrile. Continue supportive care efforts as needed. (6) Ambulatory dysfunction: Patient is mostly bedbound for my understanding of her baseline. She is physically deconditioned and cannot sit up on her own in bed. PT/OT and Case Management to assist with needs. Poss transfer to SNF (7) Hypothyroidism: TSH is slightly high although would defer any adjustment of thyroid hormone to primary care doctor when patient is feeling better. This may be off as a result of her recent illness. (8) Cerebral palsy: functional and has good insight into her medical history. (9) Obesity: Weight loss recommended. (10) DMII (diabetes mellitus, type 2): Basal bolus insulin while hospitalized. Hold metformin and other injectables per home regimen. A1C reflects good control. (11) DVT prophylaxis: SCDs for now with potential chronic blood loss being further investigated. Full code as discussed with patient and her on admission Disposition-cont hospitalization one more day at least to ensure GPCs are a contaminant (on vanc in case this is real) and want to ensure SOB has resolved completely after blood administration. Renetta Michelle DO [facility] Hospitalist Admission and Anticipated Discharge Date Admission Date: November 20, 2019 Subjective Recently finished last unit of blood. Feels better from a breathing standpoint but not sure how much better. Coughing improved. No fevers. Tolerating PO. Still weak and difficult to move around in bed independently. Vanc on board 2/2 +GPC in blood. Denies skin wounds or recent dental work. Review of Systems Review of Systems: All systems reviewed & are unremarkable except as noted in Subjective Physical Exam Physical Exam: CONSTITUTIONAL: obese, deconditioned, vitals as above, generally well-appearing EYES: normal conjunctivae, no scleral icterus ENT: MMM RESPIRATORY: clear to auscultation bilaterally, no crackles, rales or wheezes, normal respiratory effort CARDIOVASCULAR: regular rate and rhythm, 3/6 JOSE , no gallops or rubs, no JVD, no peripheral edema GASTROINTESTINAL: soft, obese, nontender, nondistended, no guarding. MUSCULOSKELETAL: strength 5/5 throughout, head is normocephalic and atraumatic SKIN: warm and dry NEUROLOGIC: o facial palsy, no dysarthria. CN 2-12 grossly intact, normal cognition, normal speech, no gross focal deficits PSYCHIATRIC: alert cooperative and oriented to person, place and time. Results & Data ([facility]) Vital Signs (Past 12 Hours) Vital Signs Temp Pulse Pulse Resp BP Pulse Ox 11/21/19 21:53 69 11/21/19 20:00 36.6 C 76 20 108/73 91 11/21/19 15:48 36.8 C 71 18 111/69 92 11/21/19 11:17 36.6 C 65 20 110/78 94 Laboratory Results Short CBC 11/21/19 Range/Units 10:33 WBC 3.28 L (4.8-10.8) K/uL Hgb 9.5 L (12.0-16.0) g/dL Hct 31.5 L (37-47) % Plt Count 97 L (130-400) K/uL BMP 11/21/19 10:33 Sodium 143 Potassium 3.3 L Chloride 108 H Carbon Dioxide 30 BUN 11 Creatinine 0.67 Glucose 150 H Calcium 8.6 Medications Administered Current Inpatient Medications Acetaminophen (Tylenol) 650 mg PO Q4H PRN PRN Reason: Pain or Fever Stop: 12/20/19 20:16 Ascorbic Acid (Vitamin C) 500 mg PO [facility] Stop: 12/21/19 08:59 Last Admin: 11/21/19 07:38 Dose: 500 mg Documented by: Aspirin (Ecotrin Ectab) [facility]: 12/21/19 08:59 Last Admin: 11/21/19 07:39 Dose: 81 mg Documented by: Atorvastatin Calcium (Lipitor) 40 mg PO HS COUNTS INCLUDE 234 BEDS AT [facility] Stop: 12/20/19 20:59 Last Admin: 11/21/19 21:09 Dose: 40 mg Documented by: Dextrose (Dextrose 50%) 25 - 50 ml IV UD PRN; Protocol PRN Reason: Hypoglycemia Protocol Stop: 12/20/19 20:16 Escitalopram Oxalate (Lexapro Tab) [facility]: 12/21/19 08:59 Last Admin: 11/21/19 07:38 Dose: 20 mg Documented by: Ferrous Sulfate (Feosol) 325 mg PO QAM COUNTS INCLUDE 234 BEDS AT THE [facility] Stop: 12/21/19 08:59 Last Admin: 11/21/19 07:39 Dose: 325 mg Documented by: Fluticasone Propionate (Flonase) 2 sprays [facility] Stop: 12/21/19 08:59 Last Admin: 11/21/19 07:38 Dose: 2 sprays Documented by: Furosemide (Lasix) 20 [facility] [place]: 12/21/19 08:59 Last Admin: 11/21/19 07:38 Dose: 20 mg Documented by: Gabapentin (Neurontin) 600 mg PO HS COUNTS INCLUDE 234 BEDS AT THE [facility] Stop: 12/20/19 20:59 Last Admin: 11/21/19 21:09 Dose: 600 mg Documented by: Gabapentin (Neurontin) 300 mg PO BID@0900,1400 COUNTS INCLUDE 234 BEDS AT THE [facility] Stop: 12/21/19 08:59 Last Admin: 11/21/19 13:24 Dose: 300 mg Documented by: Glucagon (Glucagen) 1 mg SQ UD PRN; Protocol PRN Reason: Hypoglycemia Protocol Stop: 12/20/19 20:16 Glucose (Dex4 Glucose) 4 - 8 tabs PO UD PRN; Protocol PRN Reason: Hypoglycemia Protocol Stop: 12/20/19 20:16 Glucose (Glucose 40%) 15 - 30 gm PO UD PRN; Protocol PRN Reason: Hypoglycemia Protocol Stop: 12/20/19 20:16 Vancomycin HCl 1,500 mg/ (Sodium Chloride) 530 mls @ 200 mls/hr IV Q12H KRISTY Stop: 12/05/19 20:59 Last Admin: 11/21/19 21:11 Dose: 200 mls/hr Documented by: Insulin Aspart (Novolog Flexpen) 0 units SC ACHS KRISTY Stop: 12/20/19 20:59 Last Admin: 11/21/19 21:10 Dose: 4 units Documented by: Insulin Glargine (Lantus Solostar Pen) 15 units SC BID KRISTY Stop: 12/20/19 20:59 Last Admin: 11/21/19 21:09 Dose: 15 units Documented by: Ioversol (Optiray 320 125ml) 120 ml IV ONCE PRN PRN Reason: Interaction Checking Stop: 11/24/19 15:31 Last Admin: 11/20/19 15:32 Dose: 120 ml Documented by: Levothyroxine Sodium (Synthroid) 150 mcg PO DAILYBB COUNTS INCLUDE 234 BEDS AT THE [facility] Stop: 12/21/19 06:29 Last Admin: 11/21/19 06:03 Dose: 150 mcg Documented by: Miscellaneous (Carbohydrates For Hypoglycemia) 15 - 30 gm PO UD PRN PRN Reason: Hypoglycemia Protocol Stop: 12/20/19 20:16 Miscellaneous Information (Consult) 1 ea N/A UD PRN PRN Reason: Consult Stop: 12/21/19 08:27 Nadolol (Corgard) 40 mg PO QAM COUNTS INCLUDE 234 BEDS AT THE [facility] Stop: 12/21/19 08:59 Last Admin: 11/21/19 07:39 Dose: 40 mg Documented by: Pantoprazole Sodium (Protonix) 40 mg PO QAM COUNTS INCLUDE 234 BEDS AT THE [facility] Stop: 12/21/19 08:59 Last Admin: 11/21/19 07:38 Dose: 40 mg Documented by: Polyethylene Glycol (Miralax Powder Packet) 17 gm PO DAILY PRN PRN Reason: Constipation Stop: 12/20/19 20:16 Potassium Chloride (Klor-Con M10) 10 meq PO QAM COUNTS INCLUDE 234 BEDS AT THE [facility] Stop: 12/21/19 08:59 Last Admin: 11/21/19 07:38 Dose: 10 meq Documented by: Tamsulosin HCl (Flomax) 0.4 mg PO QAM COUNTS INCLUDE 234 BEDS AT THE [facility] Stop: 12/21/19 08:59 Last Admin: 11/21/19 07:39 Dose: 0.4 mg Documented by: (1) Anemia Anemia type: unspecified type Qualified Code(s): D64.9 - Anemia, unspecified (2) Cerebral palsy Cerebral palsy type: unspecified type Qualified Code(s): G80.9 - Cerebral palsy, unspecified
[2019-11-22] MEDS: LEVOTHYROXINE SODIUM 150 MCG TABLET PO SCH (06:03)
[2019-11-22 08:28] LABS: Hematocrit (blood only) 31.2 % (37-47); Hemoglobin 9.5 g/dL (12.0-16.0); Mean Corpuscular Hemoglobin 28.5 pg (25-34); Mean Corpuscular Hgb Conc 30.4 g/dL (32-36); Mean Corpuscular Volume 93.7 fL (80-100); Mean Platelet Volume 13.3 fL (7.4-10.4); Platelet Count 79 K/uL (130-400); Platelet Estimate Decreased (Normal); RDW Coefficient of Variation 18.6 % (11.5-14.5); RDW Standard Deviation 61.3 fL (36.4-46.3); Red Blood Count 3.33 M/uL (4.2-5.4); White Blood Count 3.26 K/uL (4.8-10.8)
[2019-11-22 08:34] LABS: Est GFR (African American) 107.1; Potassium 3.4 mmol/L (3.5-5.1)
[2019-11-22 08:35] LABS: BUN Creatinine Ratio 19.1 (10-20); Calcium 8.7 mg/dl (8.5-10.1); Creatinine Clr Calc Pharmacy 106.2 ml/min; Est GFR (Non-African American) 92.4
[2019-11-22] MEDS: ASCORBIC ACID 500 MG TAB PO SCH (09:12)
[2019-11-22] MEDS: POTASSIUM CHLORIDE 10 MEQ TABCR PO SCH (09:12)
[2019-11-22] MEDS: VANCOMYCIN HCL 1,500 MG in SODIUM CHLORIDE 0.9% 500 ML IV SCH (09:12)
[2019-11-22] MEDS: FLUTICASONE PROPIONATE NA SPR 16 GM BTL NAE SCH (09:12)
[2019-11-22] MEDS: ESCITALOPRAM OXALATE 20 MG TAB PO SCH (09:12)
[2019-11-22] MEDS: FUROSEMIDE 20 MG TAB PO SCH (09:13)
[2019-11-22] MEDS: GABAPENTIN 300 MG CAP PO SCH ×2 (09:13→14:05)
[2019-11-22] MEDS: FERROUS SULFATE 325 MG TAB PO SCH (09:13)
[2019-11-22] MEDS: TAMSULOSIN HCL 0.4 MG CAP PO SCH (09:14)
[2019-11-22] MEDS: PANTOprazole 40 MG TAB PO SCH (09:14)
[2019-11-22] MEDS: INSULIN ASPART 100 UNITS/ML 3 ML PEN SC SCH ×2 (09:14→12:23)
[2019-11-22] MEDS: ASPIRIN 81 MG ECTAB PO SCH (09:14)
[2019-11-22] MEDS: INSULIN GLARGINE SOLOSTAR 100 UNITS/ML 3 ML PEN SC SCH (09:16)
[2019-11-22] MEDS: nadoloL 40 MG TAB PO SCH (09:18)
[2019-11-22] MEDS ORDERED: POTASSIUM CHLORIDE 20 MEQ TABCR PO STA (09:41)
--- NOTE | 2019-11-22 16:07 | Discharge Summary ---
Date of Service November 22, 2019 Admission HPI Per Admitting Provider 64-year-old female with cerebral palsy who is bedbound presents with 3 to 4 weeks of cough and shortness of breath, with shortness of breath becoming worse over the last week. She reports being more short of breath with lying flat and has to sit upright. She was recently seen in the ER on 11/12 as a referral from her physician for black stools and shortness of breath. She was noted to have been recently started on iron supplements and is known to be chronically anemic with a baseline H&H of 10 and 30. Her hemoglobin was rechecked in the ER and was 7.8 at which point a transfusion was not thought to be necessary so long as there was close outpatient follow-up. No significant treatments were rendered and she was worked up and sent home. She followed up with her primary care doctor again on 11/17 with H&H revealing 7.6/26.9 and a platelet count of 89 with a white blood cell count of 2.85. The patient is also scheduled to have an endoscopy in early December. She has a known history of NAFLD cirrhosis and has known nonbleeding varices with portal hypertension. Review of systems reveals reports of increased swelling in her legs, some intermittent productive cough, and a headache that is persisted all week. She denies recent fevers or chills but had those 1 week ago. Her mouth is dry and she reports not really eating or drinking much. She denies any abdominal symptoms or any diarrhea. She denies a ny gross blood in her stool. Her was present at the bedside and both were consented for blood. Admission Exam Per Admitting Provider CONSTITUTIONAL: obese, deconditioned, vitals as above, generally well-appearing EYES: PERRL, normal conjunctivae, no scleral icterus ENT: MMM RESPIRATORY: clear to auscultation bilaterally, no crackles, rales or wheezes, normal respiratory effort CARDIOVASCULAR: regular rate and rhythm, 3/6 JOSE , no gallops or rubs, no JVD, no peripheral edema GASTROINTESTINAL: soft, obese, nontender, nondistended, no guarding. MUSCULOSKELETAL: strength 5/5 throughout, head is normocephalic and atraumatic SKIN: warm and dry NEUROLOGIC: No facial palsy, no dysarthria. CN 2-12 grossly intact, normal cognition, normal speech, no gross focal deficits PSYCHIATRIC: alert cooperative and oriented to person, place and time. Principal Diagnosis Symptomatic anemia Acute bronchitis-improved Discharge Exam CONSTITUTIONAL: obese, deconditioned, vitals as above, generally well-appearing EYES: normal conjunctivae, no scleral icterus ENT: MMM RESPIRATORY: clear to auscultation bilaterally, no crackles, rales or wheezes, normal respiratory effort CARDIOVASCULAR: regular rate and rhythm, 3/6 JOSE , no gallops or rubs, no JVD, no peripheral edema GASTROINTESTINAL: soft, obese, nontender, nondistended, no guarding. MUSCULOSKELETAL: strength 5/5 throughout, but patient cannot sit up without assistance and she has difficulty transferring on her own, essentially bedbound. head is normocephalic and atraumatic SKIN: warm and dry NEUROLOGIC: No facial palsy, no dysarthria. CN 2-12 grossly intact, normal cognition, normal speech, no gross focal deficits, generalized weakness and physical deconditioning PSYCHIATRIC: alert cooperative and oriented to person, place and time. Discharge Data Allergies Allergy/AdvReac Type Severity Reaction Status Date / Time Penicillins Allergy Intermediate Hives Verified 11/20/19 14:59 Consultations 11/20/19 18:57 ED Decision to Admit Stat 11/20/19 20:17 Consult Case Management - Discharge Planning Routine Ordered Studies 11/20/19 14:28 CT angio chest PE protocol Stat Hospital Course (1) Shortness of breath: Recent flulike symptoms reported for two weeks but was flu PCR negative. Minimal respiratory symptoms. CT PE was done revealing no evidence of PE and no evidence of pneumonia or other infiltrate. Travel history was negative. She was afebrile not requiring any supplemental oxygen. There was no tachypnea present. Her H/H was noted to be 2 to 3 gm lower than her baseline and she was given two units of blood with improvement. Therefore, symptomatic anemia was thought to be the etiology of her dyspnea. She is also significantly deco nditioned and bedbound so respiratory status with function is difficult to ascertain. BNP was 88 and she did not appear to be fluid overloaded. Chest x- ray was otherwise clear. Troponin was negative and no chest pain was reported. (2) Anemia: (3) Cirrhosis: Patient with a recent history of blackish stools after starting iron supplementation. There was some concern for possible chronic blood loss. She has a history of known esophageal varices that are nonbleeding as well as portal hypertension. She is on nadolol 40 daily and her heart rate is controlled in the 60s. She had no evidence of gross bleeding during her hospitalization. Last colonoscopy in 2017 revealed internal hemorrhoids with repeat due in 10 years. Last EGD was 02/2019 where above findings were noted. She does have chronic pancytopenia likely secondary to chronic disease. She is currently compensated and is scheduled for an outpatient GI workup already. (4) Pancytopenia: Chronic, likely secondary to comorbidities. Defer to outpatient work-up. (5) Cough: Possible bronchitis, as stated above no flu or pneumonia is evident. Continue supportive care efforts as needed. (6) Ambulatory dysfunction: Patient is mostly bedbound for my understanding of her baseline. She is physically deconditioned and cannot sit up on her own in bed. (7) Hypothyroidism: TSH is slightly high although would defer any adjustment of thyroid hormone to primary care doctor when patient is feeling better. This may be off as a result of her recent illness. (8) Cerebral palsy: Total Time Total Time Spent Total Time Spent (In Minutes): 60 Total Time Includes: Examination of the Patient, Discharge Planning, Medication Reconciliation and Communication With Other Providers Discharge Plan Discharge Items Patient Disposition: Home - Home Health Services Reason For Visit: THAO,ANEMIA Discharge Diagnosis: Symptomatic anemia Acute bronchitis-improved Condition on Discharge: Good Activity: Resume your previous activity Non-emergency contact: Primary Care Provider Call non-emergency contact if: you have any medication questions and your sym ptoms worsen Follow-up/Referrals: Rajwinder Carter DO [Primary Care Provider] - Diet: Carb Consistent or DM2 and Heart Healthy Diet Texture: Easy to Chew Addtl Attending Provider Instructions: Please take all medications as instructed on discharge list below. You had some blood cultures drawn while in the hospital that appear to have a bacterial contaminant. The repeat blood cultures to confirm this are pending at the time of discharge. Someone will contact you if these are positive for any bacteria. It is recommended that you follow-up with your primary care physician within one week of discharge from the hospital to ensure you are still feeling well after hospital discharge. A repeat COMPLETE BLOOD COUNT may be considered in the next couple of weeks to monitor your anemia. It was a pleasure taking care of you! Please call if you have any questions or problems. You can reach a [facility] hospitalist on duty at [facility] 24 hours a day by calling [phone]. Take care of yourself. Renetta Michelle DO [facility] Hospitalist Pending Studies at Discharge: Yes Studies:: blood cultures Stand-Alone Forms: My [facility], Smoking Cessation Medications and DC Order Prescriptions: Continued tamsulosin 0.4 mg capsule 0.4 mg PO QAM Qty: 30 RF: 0 gabapentin 300 mg capsule 600 mg PO HS RF: 0 escitalopram oxalate 20 mg tablet 20 mg PO QAM RF: 0 fluticasone propionate [Flonase Allergy Relief] 50 mcg/actuation [place],Suspension 2 spray Intranasal QAM RF: 0 Centrum Silver 0.4-300-250 mg-mcg-mcg Tablet 1 tab PO QAM RF: 0 pantoprazole 20 mg tablet,delayed release (DR/EC) 40 mg PO QAM RF: 0 atorvastatin 40 mg tablet 40 mg PO HS RF: 0 albuterol sulfate 90 mcg/actuation Hfa Aerosol Inhaler 2 puff INHALATION Q4H PRN (Reason: Wheezing) RF: 0 oxybutynin chloride 5 mg tablet 5 mg PO BID RF: 0 nadolol 20 mg tablet 40 mg PO QAM RF: 0 cyclobenzaprine 10 mg Tablet 10 mg PO HS RF: 0 trazodone 50 mg Tablet 50 mg PO HS RF: 0 potassium chloride 10 mEq Tablet Extended Release 10 meq PO QAM RF: 0 aspirin [Aspir-81] 81 mg Tablet,Delayed Release (Dr/Ec) 81 mg PO QAM RF: 0 ascorbic acid (vitamin C) [Vitamin C] 500 mg Tablet 500 mg PO QAM RF: 0 metformin 1,000 mg Tablet 1,000 mg PO BIDM RF: 0 levothyroxine 150 mcg Tablet 150 mcg PO QAM RF: 0 gabapentin 300 mg Capsule 300 mg PO UD RF: 0 furosemide [Lasix] 20 mg Tablet 20 mg PO QAM RF: 0 Lantus Solostar U-100 Insulin 100 unit/mL (3 mL) Insulin Pen 24 unit SUBCUT HS RF: 0 dulaglutide 1.5 mg/0.5 mL Pen Injector 1.5 mg subcut MO RF: 0 ferrous sulfate 325 mg (65 mg iron) Tablet 325 mg PO QAM RF: 0 ketoconazole 2 % shampoo 1 applic TOPICAL 2XWK RF: 0 nystatin 100,000 unit/gram powder 1 applic TOPICAL TID RF: 0 Discharge Orders: Discharge Order (Routine); Ordered 11/22/19 Ordered By: Renetta Michelle Admission Data Admit Date/Time: 11/20/19 18:25 Attending Provider: Renetta Michelle Admit Provider: Renetta Michelle Primary Care Provider: Rajwinder Carter Other Providers: Renetta Michelle ; Keith Song Other Interventions: Discharge Summary Assessment (RN) Last Done: 11/22/19 16:20 DC Date/Time DO NOT enter until pt leaves facility: 11/22/19 17:34
[2019-11-22] MEDS ORDERED: INSULIN GLARGINE SOLOSTAR 100 UNITS/ML 3 ML PEN SC SCH (21:00)
[2019-11-23] MEDS ORDERED: VANCOMYCIN TROUGH ONE (08:30)
== END 2019-11-22 17:34 | disposition home health service (06) | DRG 809 ==
LOC: ED 12:51 → 2W 18:25

== ENCOUNTER 2019-12-12 21:13 | Observation (INO) ==
--- NOTE | 2019-12-12 22:21 | XRay Report ---
XR chest 1V portable CLINICAL HISTORY: cough fever COMPARISON STUDY: 11/28/2019 FINDINGS: Focal parenchymal infiltrate medial aspect right base possibly right middle lobe in distrib ution. Slight interstitial prominence throughout the remaining hemithoraces. Moderate stable cardiome thai. IMPRESSION: 1. Focal parenchymal infiltrate most likely medial aspect right middle lobe. 2. Slight interstitial prominence throughout both hemithoraces. ACT 112: Negative or not required by law. The above report was generated using voice recognition software. It may contain grammatical, syntax or spelling errors. Electronically signed by: Carter Robison M.D. 12/12/2019 10:20 PM
[2019-12-12 22:36] LABS: Base Excess VBG -1.2 mEq/L; Oxygen Saturation VBG 89.6 %; pH VBG 7.47 (7.36-7.41)
[2019-12-12 22:46] LABS: Alanine Aminotransferase 31 U/L (12-78); Albumin Level 2.8 gm/dl (3.4-5.0); Aspartate Aminotransferase 45 U/L (15-37); Bilirubin Direct 0.4 mg/dl (0-0.2); Blood Urea Nitrogen 12 mg/dl (7-18); Calcium 8.7 mg/dl (8.5-10.1); Carbon Dioxide 22 mmol/L (21-32); Chloride 110 mmol/L (98-107); Est GFR (African American) 80.5; Est GFR (Non-African American) 69.4; Glucose 199 mg/dl (70-99); Lipase 29 U/L (73-393); Magnesium 1.5 mg/dl (1.8-2.4); Sodium 140 mmol/L (136-145)
[2019-12-12 22:48] LABS: INR 1.3 (0.9-1.1); Partial Thromboplastin Ratio 1.1; Partial Thromboplastin Time 30.1 Seconds (21.0-31.0); Prothrombin Time 13.5 Seconds (9.0-12.0)
[2019-12-12 22:52] LABS: Alkaline Phosphatase 104 U/L (45-117); Bilirubin,Total 1.1 mg/dl (0.2-1); NT Pro B Type Natriuretic Pept 455 pg/ml (0-900); Total Protein 6.8 gm/dl (6.4-8.2); Troponin I < 0.015 ng/ml (0-0.045)
[2019-12-12] MEDS ORDERED: SODIUM CHLORIDE 0.9% 1000ML 1,000 ML IV ONE (22:54)
[2019-12-12 22:58] LABS: Hemoglobin 7.8 g/dL (12.0-16.0); Mean Corpuscular Hemoglobin 30.6 pg (25-34); Mean Platelet Volume 12.7 fL (7.4-10.4); Platelet Count 89 K/uL (130-400); RDW Coefficient of Variation 23.5 % (11.5-14.5); RDW Standard Deviation 86.2 fL (36.4-46.3); Red Blood Count 2.55 M/uL (4.2-5.4); White Blood Count 4.25 K/uL (4.8-10.8)
[2019-12-12] MEDS ORDERED: VANCOMYCIN HCL 2,000 MG in SODIUM CHLORIDE 0.9% 500 ML IV ONE (22:58)
[2019-12-12] MEDS ORDERED: ERTAPENEM SODIUM 10 ML IV STA (22:58)
[2019-12-12] MEDS ORDERED: VANCOMYCIN CONSULT ACTIVE PRN (22:58)
[2019-12-12 23:04] LABS: Anisocytosis Present; Basophils # (auto) 0.01 K/uL (0-0.2); Basophils % (auto) 0.2 %; Eosinophils # (auto) 0.14 K/uL (0-0.5); Eosinophils % (auto) 3.3 %; Lymphocytes # (auto) 0.34 K/uL (1.2-3.4); Monocytes # (auto) 0.22 K/uL (0.11-0.59); Monocytes % (auto) 5.2 %; Neutrophils # (auto) 3.54 K/uL (1.4-6.5); Neutrophils % (auto) 83.3 %; Ovalocytes 1+; Tear Drop Cells 1+
[2019-12-12] MEDS ORDERED: SODIUM CHLORIDE 0.9% 250 ML IV PRN (23:17)
[2019-12-12] MEDS ORDERED: PANTOprazole 80 MG in DEXTROSE 5% 100 ML IV ONE (23:18)
[2019-12-12 23:20] LABS: Influenza A virus by PCR Neg for Influ A (Neg); Influenza B virus by PCR Neg for Influ B (Neg)
--- NOTE | 2019-12-12 23:24 | Emergency Department Note ---
History of Present Illness General Chief complaint: Fever Stated complaint: FEVER COUGH SOB HAVENT FELT GOOD ALL DAY Time Seen by Provider: 12/12/19 21:35 History of Present Illness Provider complaint: Cough and fever Onset (ago): day(s) 1 Maximum Pain Intensity: 5 64-year-old female presents emergency department with cough and fever. She states her symptoms began today. She reports her T-max was 100.3. She reports difficulty breathing. No hemoptysis. She also reports that she is not currently on an antibiotic for UTI, Macrobid. She also reports dark stools. No nausea vomiting or diarrhea. She reports right-sided chest pain that does not radiate. Pain is sharp. No falls. Home Medications Home Medications Medication Instructions Recorded Confirmed Type Lantus Solostar U-100 Insulin 24 unit SUBCUT HS 06/16/18 12/12/19 History ascorbic acid (vitamin C) [Vitamin 500 mg PO QAM 06/16/18 12/12/19 History C] aspirin [Aspir-81] 81 mg PO QAM 06/16/18 12/12/19 History cyclobenzaprine 10 mg PO HS 06/16/18 12/12/19 History dulaglutide 1.5 mg SUBCUT MO 06/16/18 12/12/19 History furosemide [Lasix] 20 mg PO QAM 06/16/18 12/12/19 History gabapentin See Rx Instructions .ROUTE .COMPLEX 06/16/18 12/12/19 History levothyroxine 150 mcg PO DAILYBB 06/16/18 12/12/19 History metformin 1,000 mg PO BIDM 06/16/18 12/12/19 History potassium chloride 10 meq PO QAM 06/16/18 12/12/19 History trazodone 50 mg PO HS 06/16/18 12/12/19 History Centrum Silver 1 tab PO QAM 07/19/18 12/12/19 History escitalopram oxalate 20 mg PO QAM 07/19/18 12/12/19 History fluticasone propionate [Flonase 2 spray INTRANASAL QAM 07/19/18 12/12/19 History Allergy Relief] ferrous sulfate 325 mg PO QAM 02/21/19 12/12/19 History tamsulosin 0.4 mg capsule 0.4 mg PO QAM #30 cap 06/26/19 12/12/19 History albuterol sulfate 2 puff INHALATION Q4H PRN 09/09/19 12/12/19 History atorvastatin 40 mg PO HS 09/09/19 12/12/19 History nadolol 40 mg PO QAM 09/09/19 12/12/19 History oxybutynin chloride 5 mg PO BID 09/09/19 12/12/19 History pantoprazole 40 mg PO QAM 09/09/19 12/12/19 History nystatin 1 applic TOPICAL TID 11/20/19 12/12/19 History albuterol sulfate 2.5 mg INHALATION Q6H PRN 11/28/19 12/12/19 History semaglutide 1 mg SUBCUT WK 11/28/19 12/12/19 History famotidine 20 mg PO BID #20 tab 11/29/19 12/12/19 Rx sucralfate [Carafate] 10 ml PO QID #420 ml 11/29/19 12/12/19 Rx nitrofurantoin 100 mg PO BID 7 Days #14 cap 12/11/19 12/12/19 Rx monohydrate/macrocrystals 100 mg capsule Allergies Allergy/AdvReac Type Severity Reaction Status Date / Time Penicillins Allergy Intermediate Hives Verified 12/12/19 22:32 Past Med/Surg History Medical History Acute cystitis Ambulatory dysfunction Ambulatory dysfunction (Acute) Anxiety Asthma (Chronic) DOES NOT USE INH. REPORTS USING NEB TREATMENTS BID. Bilateral lower extremity edema (Chronic) Cardiac murmur Cerebral palsy (Chronic) Chest pain (Acute) Chronic back pain Chronic pain (Chronic) Complicated UTI (urinary tract infection) Contusion of knee, right (Acute) Contusion of leg (Acute) Cough CHRONIC PER PT REPORT Depression DM type 2 (diabetes mellitus, type 2) (Chronic) IDDM Dyslipidemia (Chronic) Encounter for pre-operative examination Fall (Acute) Fibromyalgia (Chronic) VIDA (generalized anxiety disorder) (Chronic) GERD (gastroesophageal reflux disease) History of kidney stones History of migraine (Chronic) Hoarseness of voice CHRONIC PER PT REPORT Hypertension Hypothyroidism (Chronic) Major depressive disorder, recurrent, moderate (Chronic) NG (nonalcoholic steatohepatitis) (Chronic) Obesity (BMI 30-39.9) Obesity, morbid (more than 100 lbs over ideal weight or BMI > 40) (Chronic) Obstructive sleep apnea (Chronic) CPAP + OXYGEN AT 2 LPM @ NIGHT On home oxygen therapy 2 LPM @ NIGHT + CPAP Osteoarthritis (Chronic) Pancreatic cyst Pleurisy (Acute) Poor historian Right ankle sprain (Acute) Right knee sprain (Acute) SOB (shortness of breath) on exertion Urinary catheter dysfunction (Acute) Venous insufficiency (Chronic) VRE (vancomycin resistant enterococcus) culture positive (Acute) Surgical History H/O Achilles tendon repair (Chronic) H/O section (Chronic) H/O wisdom tooth extraction (Chronic) History of Achilles tendon repair History of section History of colonoscopy History of D&C (Chronic) History of dilatation and curettage History of esophagogastroduodenoscopy (EGD) History of tooth extraction Family History Father Family history of diabetes mellitus Other No pertinent family history Social History Preferred Language: Faroese Communication Ability: Effective Cadmium Liquor Maker Required: No Beliefs That Will Affect Care: None marital status: Current Living Situation: Spouse and Family Current Living Situation Comment: Lives with , Sister and grandson Feels Safe at Home: Yes Smoking Status: Never smoker Second Hand Exposure: Yes (PREVIOUS EXPOSURE) ; Hx Alcohol Use: No Hx Substance Use: No Review of Systems A total of 10 systems reviewed and were otherwise negative Physical Exam Vital Signs Vital Signs - 24 hr 12/12/19 21:16 12/12/19 22:02 12/12/19 22:12 Temperature 37.3 C Temperature Source Oral Pulse Rate 83 81 Pulse Rate from SpO2 Sensor 81 Respiratory Rate 18 21 Respiratory Effort / Characteristics Non-Labored Respiratory Depth Normal Blood Pressure 111/70 Blood Pressure Mean 83 Pulse Oximetry 92 92 Oxygen Delivery Method Room Air Room Air Room Air Sepsis Recent Fever Within 48 Hours Yes Sepsis New/Unexplained Change in Mental Status No Sepsis Action Taken by Nursing No Action Required 12/12/19 22:14 12/12/19 22:20 12/12/19 22:30 Temperature Temperature Source Pulse Rate 78 79 79 Pulse Rate from SpO2 Sensor 77 80 79 Respiratory Rate 18 19 16 Respiratory Effort / Characteristics Respiratory Depth Blood Pressure 104/64 122/82 Blood Pressure Mean 82 103 Pulse Oximetry 91 92 95 Oxygen Delivery Method Room Air Room Air Room Air Sepsis Recent Fever Within 48 Hours Sepsis New/Unexplained Change in Mental Status Sepsis Action Taken by Nursing 12/12/19 22:31 12/12/19 22:40 12/12/19 22:50 Temperature Temperature Source Pulse Rate 80 80 79 Pulse Rate from SpO2 Sensor 80 79 81 Respiratory Rate 21 14 17 Respiratory Effort / Characteristics Respiratory Depth Blood Pressure Blood Pressure Mean Pulse Oximetry 93 92 91 Oxygen Delivery Method Room Air Room Air Room Air Sepsis Recent Fever Within 48 Hours Sepsis New/Unexplained Change in Mental Status Sepsis Action Taken by Nursing 12/12/19 23:06 12/12/19 23:41 Temperature Temperature Source Pulse Rate 82 81 Pulse Rate from SpO2 Sensor 80 81 Respiratory Rate 19 20 Respiratory Effort / Characteristics Respiratory Depth Blood Pressure 141/64 H 98/63 L Blood Pressure Mean 98 71 Pulse Oximetry 92 93 Oxygen Delivery Method Room Air Room Air Sepsis Recent Fever Within 48 Hours Sepsis New/Unexplained Change in Mental Status Sepsis Action Taken by Nursing Physical Exam GENERAL: She is oriented to person, place, and time. She appears well-developed and well-nourished. She does not appear distressed. HENT: Exam performed. -Head: Normocephalic and atraumatic. -Right Ear: External ear normal. No mastoid tenderness. -Left Ear: External ear normal. No mastoid tenderness. -Mouth/Throat: The oropharynx is clear and moist. No trismus in the jaw. No dental abscesses or uvula swelling. No oropharyngeal exudate or tonsillar abscesses. EYES: Conjunctivae and EOM are normal. Pupils are equal, round, and reactive to light. Right eye exhibits no discharge. Left eye exhibits no discharge. No scleral icterus. NECK: Normal range of motion. Neck supple. No JVD present. No spinous process tenderness present. No carotid bruit present. No rigidity. No tracheal deviation and normal range of motion present. No Brudzinski's sign and no Kernig's sign noted. CV: Normal rate, regular rhythm, normal heart sounds and intact distal pulses. There is no peripheral edema. Palpable radial pulses bue. PULM/CHEST: Rhonchi bilaterally. -Chest Wall: She exhibits no tenderness. ABD: The abdomen is soft. Bowel sounds are normal. She has no distension. No mass is present. There is no tenderness. There is no rebound, no guarding, no Holguin's sign and no tenderness at McBurney's point. Rovsig negative MUSC/SKEL: Normal range of motion. There is no peripheral edema, tenderness or deformity. LYMPH: No cervical adenopathy. NEURO: Paraplegic. No cranial nerve deficit. Monotype Keyboard Operator strength equal bilateral upper extremities. SKIN: Skin is warm and dry. She is not diaphoretic. PSYCH: She has a normal mood and affect. Behavior is normal. Judgment and thought content normal. Course Course 2139: The patient was evaluated in room C10. A complete history and physical exam was performed. 2300: Vital signs stable. Labs show white blood cell count of 4.25. Hemoglobin is 7.8. This is down from the patient's baseline of approximately 9.5. Patient has a lactic acid of 5. Magnesium 1.5. Patient's height will not allow us to calculate an ideal body weight. The patient does have a BMI greater than 57. She will be given judicious fluids for her sepsis presumed to be due to her pneumonia which is seen on the right sided of her lung on chest x-ray. 1 L normal saline bolus ordered. Patient was also Hemoccult positive when rectal exam was performed with female nursing switch repairer at bedside. She will also be started on Protonix bolus and drip. Empiric broad-spectrum antibiotics were ordered for the patient. I did discuss the case with [facility] hospitalist Dr. Guardado. Both Dr. Guardado and I agree that given the patient's low hemoglobin and Hemoccult positive she should be transfused 1 unit packed red blood cells in addition to a fluid bolus. Patient was in agreement for admission. The magnesium will also be replaced in the emergency department. Administered Medications Vancomycin HCl 2,000 mg/ (Sodium Chloride) 540 mls @ 200 mls/hr IV NOW ONE Stop: 12/13/19 01:39 Last Admin: 12/12/19 23:32 Dose: 200 mls/hr Documented by: [id number] Magnesium Sulfate/Dextrose (Magnesium Sulfate / D5w) 1 gm in 100 mls @ 100 mls/hr IV Q1H [facility] Stop: 12/13/19 01:29 Last Admin: 12/12/19 23:32 Dose: 100 mls/hr Documented by: [id number] Pantoprazole Sodium 40 mg/ (Dextrose) 100 mls @ 20 mls/hr IV Q5H [facility] Stop: 01/11/20 23:29 Last Admin: 12/13/19 00:01 Dose: 8 mg/hr, 20 mls/hr Documented by: [id number] Discontinued Medications Sodium Chloride (Nss 1000ml) 1,000 mls @ 999 mls/hr IV .Q1H1M ONE Stop: 12/12/19 23:54 Last Admin: 12/12/19 23:01 Dose: 999 mls/hr Documented by: [id number] Ertapenem (Invanz) 10 mls @ 2 mls/min IV NOW STA Stop: 12/12/19 23:02 Last Admin: 12/12/19 23:31 Dose: 2 mls/min Documented by: [id number] Pantoprazole Sodium 80 mg/ (Dextrose) 120 mls @ 400 mls/hr IV NOW ONE Stop: 12/12/19 23:35 Last Infusion: 12/13/19 00:02 Dose: 0 mls/hr Documented by: [id number] Admin: 12/12/19 23:42 Dose: 400 mls/hr Documented by: [id number] Medical Decision Making Laboratory Data Result diagrams: 12/12/19 22:17 12/12/19 22:17 Lab Results 12/12/19 12/12/19 12/12/19 Range/Units 22:15 22:15 22:17 WBC 4.25 L (4.8-10.8) K/uL RBC 2.55 L (4.2-5.4) M/uL Hgb 7.8 L (12.0-16.0) g/dL Hct 26.0 L (37-47) % MCV 102.0 H (80-100) fL MCH 30.6 (25-34) pg MCHC 30.0 L (32-36) g/dL RDW Std Deviation 86.2 H (36.4-46.3) fL RDW Coeff of Bradley 23.5 H (11.5-14.5) % Plt Count 89 L (130-400) K/uL MPV 12.7 H (7.4-10.4) fL Immature Gran % (Auto) 0.0 % Neut % (Auto) 83.3 % Lymph % (Auto) 8.0 % [place] % (Auto) 5.2 % Eos % (Auto) 3.3 % Baso % (Auto) 0.2 % Immature Gran # (Auto) 0.00 (0.00-0.02) K/uL Neut # (Auto) 3.54 (1.4-6.5) K/uL Lymph # (Auto) 0.34 L (1.2-3.4) K/uL Preble # (Auto) 0.22 (0.11-0.59) K/uL Eos # (Auto) 0.14 (0-0.5) K/uL Baso # (Auto) 0.01 (0-0.2) K/uL Anisocytosis Present Tear Drop Cells 1+ Ovalocytes 1+ PT (9.0-12.0) Seconds INR (0.9-1.1) APTT (21.0-31.0) Seconds PTT Ratio VBG pH 7.47 H (7.36-7.41) VBG pCO2 31 L (38-50) mmHg VBG pO2 61 mmHg VBG HCO3 22 mmol/L VBG O2 Saturation 89.6 % VBG Base Excess -1.2 mEq/L Barometric Pressure 728.7 mm/Hg Sodium (136-145) mmol/L Potassium (3.5-5.1) mmol/L Chloride (98-107) mmol/L Carbon Dioxide (21-32) mmol/L Anion Gap (3-11) BUN (7-18) mg/dl Creatinine (0.6-1.2) mg/dl Est Cr Clr Drug Dosing Est GFR ( Amer) Est GFR (Non-Af Amer) BUN/Creatinine Ratio (10-20) Glucose (70-99) mg/dl Lactate (0.4-2.0) mmol/L Calcium (8.5-10.1) mg/dl Magnesium (1.8-2.4) mg/dl Total Bilirubin (0.2-1) mg/dl Direct Bilirubin (0-0.2) mg/dl AST (15-37) U/L ALT (12-78) U/L Alkaline Phosphatase (45-117) U/L Troponin I (0-0.045) ng/ml NT-Pro-B Natriuret Pep (0-900) pg/ml Total Protein (6.4-8.2) gm/dl Albumin (3.4-5.0) gm/dl Lipase (73-393) U/L Influenza Type A (PCR) Neg for Influ A (Neg) Influenza Type B (PCR) Neg for Influ B (Neg) Blood Type Antibody Screen Crossmatch 12/12/19 12/12/19 12/12/19 Range/Units 22:17 22:17 22:17 WBC (4.8-10.8) K/uL RBC (4.2-5.4) M/uL Hgb (12.0-16.0) g/dL Hct (37-47) % MCV (80-100) fL MCH (25-34) pg MCHC (32-36) g/dL RDW Std Deviation (36.4-46.3) fL RDW Coeff of Bradley (11.5-14.5) % Plt Count (130-400) K/uL MPV (7.4-10.4) fL Immature Gran % (Auto) % Neut % (Auto) % Lymph % (Auto) % [place] % (Auto) % Eos % (Auto) % Baso % (Auto) % Immature Gran # (Auto) (0.00-0.02) K/uL Neut # (Auto) (1.4-6.5) K/uL Lymph # (Auto) (1.2-3.4) K/uL Preble # (Auto) (0.11-0.59) K/uL Eos # (Auto) (0-0.5) K/uL Baso # (Auto) (0-0.2) K/uL Anisocytosis Tear Drop Cells Ovalocytes PT 13.5 H (9.0-12.0) Seconds INR 1.3 H (0.9-1.1) APTT 30.1 (21.0-31.0) Seconds PTT Ratio 1.1 VBG pH (7.36-7.41) VBG pCO2 (38-50) mmHg VBG pO2 mmHg VBG HCO3 mmol/L VBG O2 Saturation % VBG Base Excess mEq/L Barometric Pressure mm/Hg Sodium 140 (136-145) mmol/L Potassium 4.0 (3.5-5.1) mmol/L Chloride 110 H (98-107) mmol/L Carbon Dioxide 22 (21-32) mmol/L Anion Gap 8.0 (3-11) BUN 12 (7-18) mg/dl Creatinine 0.88 (0.6-1.2) mg/dl Est Cr Clr Drug Dosing Not Reportable Est GFR ( Amer) 80.5 Est GFR (Non-Af Amer) 69.4 BUN/Creatinine Ratio 14.0 (10-20) Glucose 199 H (70-99) mg/dl Lactate 5.0 H* (0.4-2.0) mmol/L Calcium 8.7 (8.5-10.1) mg/dl Magnesium 1.5 L (1.8-2.4) mg/dl Total Bilirubin 1.1 H (0.2-1) mg/dl Direct Bilirubin 0.4 H (0-0.2) mg/dl AST 45 H (15-37) U/L ALT 31 (12-78) U/L Alkaline Phosphatase 104 (45-117) U/L Troponin I < 0.015 (0-0.045) ng/ml NT-Pro-B Natriuret Pep 455 (0-900) pg/ml Total Protein 6.8 (6.4-8.2) gm/dl Albumin 2.8 L (3.4-5.0) gm/dl Lipase 29 L (73-393) U/L Influenza Type A (PCR) (Neg) Influenza Type B (PCR) (Neg) Blood Type Antibody Screen Crossmatch 12/12/19 Range/Units 23:38 WBC (4.8-10.8) K/uL RBC (4.2-5.4) M/uL Hgb (12.0-16.0) g/dL Hct (37-47) % MCV (80-100) fL MCH (25-34) pg MCHC (32-36) g/dL RDW Std Deviation (36.4-46.3) fL RDW Coeff of Bradley (11.5-14.5) % Plt Count (130-400) K/uL MPV (7.4-10.4) fL Immature Gran % (Auto) % Neut % (Auto) % Lymph % (Auto) % Pre[place] % (Auto) % Eos % (Auto) % Baso % (Auto) % Immature Gran # (Auto) (0.00-0.02) K/uL Neut # (Auto) (1.4-6.5) K/uL Lymph # (Auto) (1.2-3.4) K/uL Preble # (Auto) (0.11-0.59) K/uL Eos # (Auto) (0-0.5) K/uL Baso # (Auto) (0-0.2) K/uL Anisocytosis Tear Drop Cells Ovalocytes PT (9.0-12.0) Seconds INR (0.9-1.1) APTT (21.0-31.0) Seconds PTT Ratio VBG pH (7.36-7.41) VBG pCO2 (38-50) mmHg VBG pO2 mmHg VBG HCO3 mmol/L VBG O2 Saturation % VBG Base Excess mEq/L Barometric Pressure mm/Hg Sodium (136-145) mmol/L Potassium (3.5-5.1) mmol/L Chloride (98-107) mmol/L Carbon Dioxide (21-32) mmol/L Anion Gap (3-11) BUN (7-18) mg/dl Creatinine (0.6-1.2) mg/dl Est Cr Clr Drug Dosing Est GFR ( Amer) Est GFR (Non-Af Amer) BUN/Creatinine Ratio (10-20) Glucose (70-99) mg/dl Lactate (0.4-2.0) mmol/L Calcium (8.5-10.1) mg/dl Magnesium (1.8-2.4) mg/dl Total Bilirubin (0.2-1) mg/dl Direct Bilirubin (0-0.2) mg/dl AST (15-37) U/L ALT (12-78) U/L Alkaline Phosphatase (45-117) U/L Troponin I (0-0.045) ng/ml NT-Pro-B Natriuret Pep (0-900) pg/ml Total Protein (6.4-8.2) gm/dl Albumin (3.4-5.0) gm/dl Lipase (73-393) U/L Influenza Type A (PCR) (Neg) Influenza Type B (PCR) (Neg) Blood Type A Positive Antibody Screen NEGATIVE Crossmatch See Detail Imaging Data Radiologist's Impression: XR chest 1V portable CLINICAL HISTORY: cough fever COMPARISON STUDY: 11/28/2019 FINDINGS: Focal parenchymal infiltrate medial aspect right base possibly right m iddle lobe in distribution. Slight interstitial prominence throughout the remaining hemithoraces. Moderate stable cardiomegaly. IMPRESSION: 1. Focal parenchymal infiltrate most likely medial aspect right middle lobe. 2. Slight interstitial prominence throughout both hemithoraces. ACT 112: Negative or not required by law. The above report was generated using voice recognition software. It may contain grammatical, syntax or spelling errors. Electronically signed by: Carter Robison M.D. 12/12/2019 10:20 PM Dictated: 12/12/192218 Transcribed: 12/12/192218 ECG Data Rate (beats per minute): 79 Rhythm: + normal sinus ECG Intervals/blocks: + Normal QRS, + Normal [place] and + Normal QT-c ECG ST segments: + Normal ST segments MDM Narrative Vital signs stable. Labs show white blood cell count of 4.25. Hemoglobin is 7.8. This is down from the patient's baseline of approximately 9.5. Patient has a lactic acid of 5. Magnesium 1.5. Patient's height will not allow us to calculate an ideal body weight. The patient does have a BMI greater than 57. She will be given judicious fluids for her sepsis presumed to be due to her pneumonia which is seen on the right sided of her lung on chest x-ray. 1 L normal saline bolus ordered. Patient was also Hemoccult positive when rectal exam was performed with female nursing switch repairer at bedside. She will also be started on Protonix bolus and drip. Empiric broad-spectrum antibiotics were ordered for the patient. I did discuss the case with [facility] hospitalist Dr. Guardado. Both Dr. Guardado and I agree that given the patient's low hemoglobin and Hemoccult positive she should be transfused 1 unit packed red blood cells in addition to a fluid bolus. Patient was in agreement for admission. The magnesium will also be replaced in the emergency department. Impression & Plan Sepsis, Pneumonia, Acute GI bleeding, Melena, Hypomagnesemia Discharge Plan Visit Data Chief Complaint: Fever Stated Complaint: FEVER COUGH SOB HAVENT FELT GOOD ALL DAY ED Provider: Sammy James Discharge Problem: Sepsis, Pneumonia, Acute GI bleeding, Melena, Hypomagnesemia Patient Disposition: Admitted As Inpatient Forms Stand Alone Forms: My [facility] Prescriptions Prescriptions: No Action nitrofurantoin monohyd/m-cryst [Macrobid] 100 mg capsule 100 mg PO BID 7 Days Qty: 14 RF: 0 tamsulosin 0.4 mg capsule 0.4 mg PO QAM Qty: 30 RF: 0 escitalopram oxalate 20 mg tablet 20 mg PO QAM RF: 0 fluticasone propionate [Flonase Allergy Relief] 50 mcg/actuation [place],Suspension 2 spray Intranasal QAM RF: 0 Centrum Silver 0.4-300-250 mg-mcg-mcg Tablet 1 tab PO QAM RF: 0 pantoprazole 20 mg tablet,delayed release (DR/EC) 40 mg PO QAM RF: 0 atorvastatin 40 mg tablet 40 mg PO HS RF: 0 albuterol sulfate 90 mcg/actuation Hfa Aerosol Inhaler 2 puff INHALATION Q4H PRN (Reason: Wheezing) RF: 0 oxybutynin chloride 5 mg tablet 5 mg PO BID RF: 0 nadolol 20 mg tablet 40 mg PO QAM RF: 0 cyclobenzaprine 10 mg Tablet 10 mg PO HS RF: 0 trazodone 50 mg Tablet 50 mg PO HS RF: 0 potassium chloride 10 mEq Tablet Extended Release 10 meq PO QAM RF: 0 aspirin [Aspir-81] 81 mg Tablet,Delayed Release (Dr/Ec) 81 mg PO QAM RF: 0 ascorbic acid (vitamin C) [Vitamin C] 500 mg Tablet 500 mg PO QAM RF: 0 metformin 1,000 mg Tablet 1,000 mg PO BIDM RF: 0 levothyroxine 150 mcg Tablet 150 mcg PO DAILYBB RF: 0 gabapentin 300 mg Capsule See Rx Instructions .ROUTE .COMPLEX RF: 0 furosemide [Lasix] 20 mg Tablet 20 mg PO QAM RF: 0 Lantus Solostar U-100 Insulin 100 unit/mL (3 mL) Insulin Pen 24 unit SUBCUT HS RF: 0 dulaglutide 1.5 mg/0.5 mL Pen Injector 1.5 mg subcut MO RF: 0 ferrous sulfate 325 mg (65 mg iron) Tablet 325 mg PO QAM RF: 0 nystatin 100,000 unit/gram powder 1 applic TOPICAL TID RF: 0 albuterol sulfate 2.5 mg /3 mL (0.083 %) solution for nebulization 2.5 mg inhalation Q6H PRN (Reason: Wheezing) RF: 0 semaglutide 1 mg/dose (2 mg/1.5 mL) Pen Injector 1 mg SUBCUT WK RF: 0 sucralfate [Carafate] 100 mg/mL suspension 10 ml PO QID Qty: 420 RF: 0 famotidine 20 mg tablet 20 mg PO BID Qty: 20 RF: 0 Referrals Referrals: Rajwinder Carter DO [Primary Care Provider] - Discharge Problem: Sepsis Qualifiers: Sepsis type: sepsis due to unspecified organism Sepsis acute organ dysfunction status: unspecified Qualified Code(s): A41.9 - Sepsis, unspecified organism Pneumonia Qualifiers: Pneumonia type: due to unspecified organism Laterality: right Lung location: middle lobe of lung Qualified Code(s): J18.9 - Pneumonia, unspecified organism
[2019-12-12] MEDS ORDERED: PANTOprazole 40 MG in DEXTROSE 5% 100 ML IV SCH (23:30)
[2019-12-12] MEDS: MAGNESIUM SULFATE / D5W 1 GM/100 ML BAG IV SCH (23:32)
[2019-12-13] MEDS ORDERED: SODIUM CHLORIDE 0.9% 1000ML 1,000 ML IV SCH (00:15)
[2019-12-13] MEDS: MAGNESIUM SULFATE / D5W 1 GM/100 ML BAG IV SCH (00:36)
[2019-12-13] MEDS ORDERED: ALBUTEROL 0.083% NEBU SOLN 3 ML VIAL INH PRN (01:30)
[2019-12-13] MEDS ORDERED: ONDANSETRON INJ 2 MG/ML 2 ML VIAL IV PRN (01:30)
[2019-12-13] MEDS ORDERED: ALBUTEROL HFA 8 GM INHALER INH PRN (01:30)
[2019-12-13] MEDS ORDERED: NITROGLYCERIN SL 0.4 MG/TAB TAB SL PRN (01:30)
[2019-12-13] MEDS: SODIUM CHLORIDE 0.9% 1000ML 1,000 ML IV SCH ×2 (01:59→12:41)
[2019-12-13] MEDS ORDERED: ERTAPENEM CONSULT ACTIVE PRN (02:00)
[2019-12-13] MEDS ORDERED: DEXTROSE 50% 50 ML SYRINGE IV PRN (02:15)
[2019-12-13] MEDS ORDERED: CARBOHYDRATES FOR HYPOGLYCEMIA PO PRN (02:15)
[2019-12-13] MEDS ORDERED: GLUCOSE 40% GEL 15 GM TUBE PO PRN (02:15)
[2019-12-13] MEDS ORDERED: GLUCAGON FOR INJ 1 MG VIAL SQ PRN (02:15)
[2019-12-13] MEDS ORDERED: GLUCOSE 10 TABS/TUBE PO PRN (02:15)
[2019-12-13] MEDS: DOXYCYCLINE HYCLATE 100 MG in DEXTROSE 5% 100 ML IV SCH ×2 (02:31→08:59)
--- NOTE | 2019-12-13 02:52 | History and Physical Report ---
DATE OF ADMISSION: 12/13/2019 CHIEF COMPLAINT: Shortness of breath, cough, and fever. HISTORY OF PRESENT ILLNESS: This is a 64-year-old female with past medical history significant for type 2 diabetes, hypothyroidism, asthma, chronic rhinitis, obstructive sleep apnea on CPAP, restrictive lung disease, venous insufficiency, hypertension, NG liver cirrhosis, obesity, GERD, urinary incontinence due to immobility, venous stasis dermatitis of both extremities, degenerative disk disease, osteoarthritis of right knee, fibromyalgia, tendinitis of right leg, cerebral palsy, chronic pain syndrome, pancytopenia, iron deficiency anemia due to chronic blood loss, splenomegaly, history of MRSA infection, recurrent depression, history of C. diff, ambulatory dysfunction, wheelchair dependent, generalized weakness, migraines. Lives with her . Presents with shortness of breath, cough, and fever at home. The patient was here in the hospital from 11/20/2019 to 11/22/2019, admitted for shortness of breath thought to be from anemia. At that time, her hemoglobin was 7.3. She is status post PRBC transfusion . She was on iron pill. She has chronic iron deficiency anemia. She followed with GI and had EGD done on 11/27/2019 which showed no active signs of bleeding, nonbleeding grade 1 varices found in the lower third of the esophagus, portal hypertensive gastropathy, gastritis. Advised to continue iron. She also followed with hematology/oncology for pancytopenia and iron deficiency anemia and the plans were to start her on IV Venofer. The patient is having dry cough since more than 1 month. She says today she had some fever of 100 degrees at home. And she was also getting short of breath. She did not sleep last night because of cough and her appetite is down today. So that is the reason she came to the ER and chest x-ray showed right middle lobe pneumonia. She has no travel history, no sick contacts. Currently, resting comfortably and hemodynamically stable. She is afebrile in the ER, blood pressure is okay. Her hemoglobin was again 7.8, platelets are 89, which is chronic, WBC 4.25. Lactic acid came back as 5.5, she has chronic lactic acidosis, last time it was 2.2, mostly secondary to her liver disease. Magnesium 1.5, which was replaced in the ER. In the ER, she is also getting 1 unit of PRBCs. Her influenza A and B are negative. We are admitting for pneumonia. Denies any headache, no blurred visions, no earache. Has some runny nose, some mild sore throat. She has mild pain from swallowing, but she recently had EGD done. No nausea, no vomiting, no diarrhea or constipation. Denies any blood in the stools or black stools. Normal bladder movements. Has chronic swelling in the lower extremities. She says she keeps her legs elevated when she is sleeping. No rash. ALLERGIES: PENICILLINS. PAST MEDICAL HISTORY: As mentioned above. PAST SURGICAL HISTORY: , colonoscopy, dental surgery, dilatation and curettage, EGDs, pelvic hip joint surgery as a teenager, repair of the Achilles tendon graft. MEDICATIONS: The patient is on cyclobenzaprine 5 mg p.o. at bedtime, Trulicity 1.5 injection once weekly, Lexapro 20 mg p.o. daily, Lantus 24 units at bedtime, levothyroxine 150 mcg p.o. daily, potassium chloride ER 10 mEq p.o. daily, aspirin 81 mg p.o. daily, trazodone 150 mg p.o. at bedtime, ferrous sulfate 325 mg p.o. b.i.d., gabapentin 300 mg 1 pill in a.m., one pill in midday and two in p.m., nadolol 40 mg p.o. daily, Flomax 0.4 mg p.o. daily, albuterol 2 puffs every 4 hours p.r.n., nystatin apply topically to affected area 3 times daily, semaglutide 1 mg under skin once a week, albuterol nebulization every 6 hours p.r.n., Lasix 20 mg p.o. daily, oxybutynin 5 mg p.o. b.i.d., Protonix 40 mg p.o. daily, atorvastatin 40 mg p.o. at bedtime, Flonase 2 sprays into each nostril daily as directed, metformin 1000 mg p.o. b.i.d., Lasix 20 mg daily, vitamin C 500 mg p.o. daily, Centrum Silver 1 capsule daily. FAMILY HISTORY: Significant for father had diabetes and of PA at age of 61, mother of PA at age of 72, sister has PA at age of 46, and sister has hypertension. SOCIAL HISTORY: , lives with her . No smoking, no alcohol, no drug use. REVIEW OF SYSTEMS: As per HPI. Rest of the review of systems are negative. PHYSICAL EXAMINATION: GENERAL: The patient is obese, not in acute distress. VITAL SIGNS: Temperature 37.3, pulse 81, respiratory rate 20, blood pressure 98/63, oxygen 93% on room air. HEENT: No pallor, no icterus. Pupils equal, round, reactive to light. NECK: No JVD, no neck masses. CARDIOVASCULAR: S1, S2 heard, regular rate and rhythm, no murmur, no gallop. RESPIRATORY SYSTEM: Normal AP diameter. No accessory muscle use. No wheezing, no crackles. ABDOMEN: Soft, bowel sounds present, nontender. No distention. CENTRAL NERVOUS SYSTEM: Alert and oriented x3. Obeys commands. Moves extremities. Nonfocal. EXTREMITIES: Bilateral lower extremity chronic edema present, no erythema seen. LABORATORY DATA: WBC 4.2, hemoglobin 7.8, hematocrit 26, platelets 89. PT 13.5, INR 1.3, APTT 30.1. Venous blood gas pH of 7.4, pCO2 of 31, pO2 of 61, bicarbonate of 22. Sodium 140, potassium 4, chloride 110, CO2 of 22, BUN 12, creatinine 0.8, serum glucose 199. Lactate 5.0, calcium 8.7, magnesium 1.5, total bilirubin 1.1, direct bilirubin 0.4, AST 45, ALT 31, alkaline phosphatase 104. Troponin I less than 0.015. Lipase 29. Influenza A and B negative. IMAGING DATA: Chest x-ray, focal parenchymal infiltrate, most likely medial aspect of the right middle lobe, slight interstitial prominence throughout both hemispheres. EKG: Normal sinus rhythm, rate of 79, no significant change was found. ASSESSMENT AND PLAN: This is a 64-year-old female who was recently in the hospital for shortness of breath, thought to be from anemia and also had EGD as outpatient, recently comes back with shortness of breath, cough, and fever at home and found to have pneumonia. 1. Pneumonia, presents with cough going for last more than a month and fever today and shortness of breath. Chest x-ray showed right middle lobe pneumonia, recently had EGD done on 11/27/2019, could be aspiration pneumonia. No travel history. No sick contacts. In Er she got IV Invanz and IV vancomycin. Will continue IV Invanz and instead of vancomycin we will start her on IV doxycycline b.i.d. Follow the cultures, follow the response. Continue her home inhalers and nebs. Also consider speech evaluation. 2. History of intermittent asthma, chronic rhinitis. Continue her home inhalers, currently stable. 3. Sleep apnea, on CPAP. 4. Diabetes. Continue her Lantus. Hold her Trulicity and metformin and semaglutide. Placed on insulin sliding scale. Follow the blood sugars, follow HbA1c levels. 5. History of liver cirrhosis secondary to NG. Holding the Lasix and potassium supplement because of the ongoing infection. Continue nadolol with holding parameters. 6. Anemia, chronic blood loss anemia, chronic iron deficiency anemia. Recently she received 2 units of PRBC last month. At that time, her hemoglobin improved from 7.3 to 9. Also followed with hematology/oncology and there is plan for IV Venofer. Again hemoglobin dropped to 7.8, today getting 1 unit of PRBCs. We have also sent stool for Hemoccult. Protonix drip, was started in the ER, which will continue. Recently had EGD which showed grade 1 nonbleeding esophageal ulcers and gastritis and portal hypertensive gastropathy. We will keep her n.p.o. and consult GI in a.m. Follow the morning labs. 7. Hypertension. Holding the Lasix. Nadolol with holding parameters. 8. Gastroesophageal reflux disease, continue on ppi drip. 9. 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. Continue Flomax and Ditropan. 10. Depression. Continue her Lexapro. 11. Hypothyroidism. Continue Synthroid. 12. Insomnia, continue trazodone. 13. Chronic pain syndrome, continue her gabapentin. 14. Hyperlipidemia. Continue her statin. 15. Deep vein thrombosis prophylaxis, sequential compression devices for now. 16. Disposition: Closely monitor in the med/surg tele. Level 1 full code as per as per my discussion with the patient. PT and OT prior to discharge. Social service to help with discharge planning. [facility]
[2019-12-13] MEDS ORDERED: SODIUM CHLORIDE 0.9% 250 ML IV PRN (03:22)
[2019-12-13] MEDS ORDERED: ACETAMINOPHEN 500 MG TAB PO ONE ×2 (04:00→04:30)
[2019-12-13] MEDS: ACETAMINOPHEN 325 MG TAB PO PRN ×2 (05:58→19:48)
[2019-12-13] MEDS: LEVOTHYROXINE SODIUM 150 MCG TABLET PO SCH (06:31)
[2019-12-13 07:59] LABS: Anisocytosis Present; Basophilic Stippling 1+; Basophils # (auto) 0.03 K/uL (0-0.2); Basophils % (auto) 0.9 %; Eosinophils # (auto) 0.12 K/uL (0-0.5); Eosinophils % (auto) 3.6 %; Hematocrit (blood only) 24.4 % (37-47); Hemoglobin 7.7 g/dL (12.0-16.0); Immature Granulocytes # (auto) 0.01 K/uL (0.00-0.02); Immature Granulocytes % (auto) 0.3 %; Lymphocytes # (auto) 0.26 K/uL (1.2-3.4); Lymphocytes % (auto) 7.8 %; Mean Corpuscular Hemoglobin 31.3 pg (25-34); Mean Corpuscular Hgb Conc 31.6 g/dL (32-36); Mean Corpuscular Volume 99.2 fL (80-100); Mean Platelet Volume 12.7 fL (7.4-10.4); Monocytes # (auto) 0.16 K/uL (0.11-0.59); Monocytes % (auto) 4.8 %; Neutrophils # (auto) 2.77 K/uL (1.4-6.5); Neutrophils % (auto) 82.6 %; Nucleated RBC # (auto) 0.04 K/uL (0-0); Nucleated RBC % (auto) 1.3 %; Platelet Count 74 K/uL (130-400); Platelet Estimate Decreased (Normal); RDW Coefficient of Variation 23.7 % (11.5-14.5); RDW Standard Deviation 83.3 fL (36.4-46.3); Red Blood Count 2.46 M/uL (4.2-5.4); Tear Drop Cells 1+; White Blood Count 3.35 K/uL (4.8-10.8)
[2019-12-13 08:09] LABS: BUN Creatinine Ratio 16.3 (10-20); Calcium 8.1 mg/dl (8.5-10.1); Est GFR (African American) 97.6; Est GFR (Non-African American) 84.2; Magnesium 1.8 mg/dl (1.8-2.4); Potassium 3.4 mmol/L (3.5-5.1)
[2019-12-13 08:36] LABS: Estimated Average Glucose 131 mg/dl; Hemoglobin A1C 6.2 % (4.5-5.6)
--- NOTE | 2019-12-13 08:48 | Gastrointestinal Consultation ---
Date of Consultation December 13, 2019 Assessment & Plan (1) Pneumonia: (2) Anemia: (3) LUQEU (nonalcoholic steatohepatitis): (4) Cirrhosis: Pt is a 64 y/o female currently admitted for pneumonia on Ertapenem and Doxycycline IV. She has hx of LUQUE cirrhosis (MELD 10), chronic anemia, reporting dark formed stools on PO iron but no tarry appearance or rectal bleeding, n/v. Recently baseline Hgb been about 7, which improves after blood transfusions. Plans were for her to start Iron IV outpt transfusions per Heme/Onc's direction. She just had recent EGD on 11/27/2019 which showed non bleeding grade I esophageal varices, portal HTN. On Nadolol 40mg daily. Last colonoscopy in 2016 showed int hemorrhoids. - Monitor H/H and transfuse prn - Protonix 40mg PO daily - Continue Nadolol 40mg daily ; Carafate 1g QID - Would defer endoscopic evaluation at this time given poor respiratory functi on, recent EGD, colonoscopy. - Defer pneumonia management to primary team. If persistent fever, or worsening respiratory conditions, would recommend to r/o Coronavirus (COVID- 19) Supervising Physician Co-Signing Physician Notes I have seen and examined the patient and disussed the management with ZAK Perdomo> 64 yo fm, known to be a luque cirrhotic, admitted thru the ED overnite with pna. Recent hosp admission mid 11/28 for anemia and underwent egd showing g1ev (non bleeding) and phg. She was noted to have fever, cough and cxray showing RML infiltrate through the ER. She is on baseline o2 of 2 liters at home, now on 3 liters. No recent history to suspect COVID. PE - well nourished obese fm in nad, HEENT - perrla, Pulm - belly breathing and as a result some mild use of accessory muscles but maintaining her o2 saturation, Abd - obese soft nt nd +bs, Leg - slightly swollen but has chronic venous stasis issues MELD eldon 7 with INR of 1.3 Last EGD reviewed Cxray reviewed A/P PNA- treat accordingly, if worsening fevers or increased o2 sat- would consider testing for coronavirus given she is immunocompromised from her cirrhosis Cirrhosis- meld stable Anemia- she refused 1 unit overnite, no overt signs of gi bleed, would keep on PO ppi, if overt melena- would add octreotide gtt, no current bun rise to s uspect active ugi bleed at this time. For a cirrhotic - her hgb should ideally be between 7-8 as a baseline as higher hemoglobin levels and overtransfusion in these patietns can precipitate worsening portal pressures. Continue nadolol for now. Outpatient GI fup with her regular provider. History of Present Illness Reason for Consultation: Anemia, hx of cirrhosis, esopahgeal varices Requesting Physician: Dr. Kourtney Hauser Attending Physician: Dr. Maritza Fernando History of Present Illness Pt is a 64 y/o female w hx of DM II, CP, HTN, dyslipidemia, THAD, chronic anemia, LUQUE cirrhosis w Grade I esophageal varices and portal HTN, who presented w c/o SOB, cough, fever at home. She was just admitted about 3 weeks ago w SOB suspected to be related to anemia. Hgb around 7 -> 9 after 2U PRBC transfusion. She was noted to be febrile, highest temp 38.8C last night. Lactic acid 5, CXR showed R mild lobe pneumonia. Flu negative. Blood culture pending. H/H 7.05/06 and she was given 1U PRBC transfusion last night. She reports dark formed stools, on ferrous sulfate 325mg BID. Denies any rectal, P[employer]MAN [employer]ER/ bleeding. Last EGD was done on 11/27/2019 w findings of no bleeding Grade I esophageal varices, portal HTN. Last colonoscopy in 2017 showed int hemorrhoids. She had seen Dr. Tono Sanchez (Heme/Onc) recently and planning to start Iron infusion series. Last Ferritin 1 month ago noted to be low at 10. Allergies Allergy/AdvReac Type Severity Reaction Status Date / Time Penicillins Allergy Intermediate Hives Verified 12/12/19 22:32 Home Medications Home Medications Medication Instructions Recorded Confirmed Type Lantus Solostar U-100 Insulin 24 unit SUBCUT HS 06/16/18 12/12/19 History ascorbic acid (vitamin C) [Vitamin 500 mg PO QAM 06/16/18 12/12/19 History C] aspirin [Aspir-81] 81 mg PO QAM 06/16/18 12/12/19 History cyclobenzaprine 10 mg PO HS 06/16/18 12/12/19 History dulaglutide 1.5 mg SUBCUT MO 06/16/18 12/12/19 History furosemide [Lasix] 20 mg PO QAM 06/16/18 12/12/19 History gabapentin See Rx Instructions .ROUTE .COMPLEX 06/16/18 12/12/19 History levothyroxine 150 mcg PO DAILYBB 06/16/18 12/12/19 History metformin 1,000 mg PO BIDM 06/16/18 12/12/19 History potassium chloride 10 meq PO QAM 06/16/18 12/12/19 History trazodone 50 mg PO HS 06/16/18 12/12/19 History Centrum Silver 1 tab PO QAM 07/19/18 12/12/19 History escitalopram oxalate 20 mg PO QAM 07/19/18 12/12/19 History fluticasone propionate [Flonase 2 spray INTRANASAL QAM 07/19/18 12/12/19 History Allergy Relief] ferrous sulfate 325 mg PO QAM 02/21/19 12/12/19 History tamsulosin 0.4 mg capsule 0.4 mg PO QAM #30 cap 06/26/19 12/12/19 History albuterol sulfate 2 puff INHALATION Q4H PRN 09/09/19 12/12/19 History atorvastatin 40 mg PO HS 09/09/19 12/12/19 History nadolol 40 mg PO QAM 09/09/19 12/12/19 History oxybutynin chloride 5 mg PO BID 09/09/19 12/12/19 History pantoprazole 40 mg PO QAM 09/09/19 12/12/19 History nystatin 1 applic TOPICAL TID 11/20/19 12/12/19 History albuterol sulfate 2.5 mg INHALATION Q6H PRN 11/28/19 12/12/19 History semaglutide 1 mg SUBCUT WK 11/28/19 12/12/19 History famotidine 20 mg PO BID #20 tab 11/29/19 12/12/19 Rx sucralfate [Carafate] 10 ml PO QID #420 ml 11/29/19 12/12/19 Rx nitrofurantoin 100 mg PO BID 7 Days #14 cap 12/11/19 12/12/19 Rx monohydrate/macrocrystals 100 mg capsule Patient History Medical History Acute cystitis Ambulatory dysfunction Ambulatory dysfunction (Acute) Anxiety Asthma (Chronic) DOES NOT USE INH. REPORTS USING NEB TREATMENTS BID. Bilateral lower extremity edema (Chronic) Cardiac murmur Cerebral palsy (Chronic) Chest pain (Acute) Chronic back pain Chronic pain (Chronic) Complicated UTI (urinary tract infection) Contusion of knee, right (Acute) Contusion of leg (Acute) Cough CHRONIC PER PT REPORT Depression DM type 2 (diabetes mellitus, type 2) (Chronic) IDDM Dyslipidemia (Chronic) Encounter for pre-operative examination Fall (Acute) Fibromyalgia (Chronic) VIDA (generalized anxiety disorder) (Chronic) GERD (gastroesophageal reflux disease) History of kidney stones History of migraine (Chronic) Hoarseness of voice CHRONIC PER PT REPORT Hypertension Hypothyroidism (Chronic) Major depressive disorder, recurrent, moderate (Chronic) LUQUE (nonalcoholic steatohepatitis) (Chronic) Obesity (BMI 30-39.9) Obesity, morbid (more than 100 lbs over ideal weight or BMI > 40) (Chronic) Obstructive sleep apnea (Chronic) CPAP + OXYGEN AT 2 LPM @ NIGHT On home oxygen therapy 2 LPM @ NIGHT + CPAP Osteoarthritis (Chronic) Pancreatic cyst Pleurisy (Acute) Poor historian Right ankle sprain (Acute) Right knee sprain (Acute) SOB (shortness of breath) on exertion Urinary catheter dysfunction (Acute) Venous insufficiency (Chronic) VRE (vancomycin resistant enterococcus) culture positive (Acute) Surgical History H/O Achilles tendon repair (Chronic) H/O section (Chronic) H/O wisdom tooth extraction (Chronic) History of Achilles tendon repair History of section History of colonoscopy History of D&C (Chronic) History of dilatation and curettage History of esophagogastroduodenoscopy (EGD) History of tooth extraction Family History Father Family history of diabetes mellitus Other No pertinent family history Social History Preferred Language: Liberian Communication Ability: Effective 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: No Beliefs That Will Affect Care: None marital status: Current Living Situation: Spouse and Family Current Living Situation Comment: Lives with , Sister and grandson Other Information That Helps Us Care for You: No Feels Safe at Home: Yes Safety Concerns: Feels Safe At This Time Smoking Status: Never smoker Second Hand Exposure: Yes (PREVIOUS EXPOSURE) ; Hx Alcohol Use: No Hx Substance Use: No Review of Systems Review of Systems: All systems reviewed & are unremarkable except as noted in HPI & below Physical Exam Constitutional: WD/WN, vitals as above + ill appearing, well groomed and cooperative Eyes: PERRL, conjunctivae normal, anicteric sclerae ENMT: external ear and nose normal, oropharynx normal Respiratory: + labored breathing and + cough upper lobes bilateral wheezes; diminished mid and lower lobes Cardiovascular: RRR, no murmur, no edema Gastrointestinal (Abdomen): normal bowel sounds, soft, nontender, no hepatosplenomegaly Skin: no rashes, warm and dry no jaundice Neurologic: Motor/Sensory: no asterixis Psychiatric: A+Ox3, euthymic affect Lymphatic: no lymphedema Results & Data ([facility]) Vital Signs (Past 12 Hours) Vital Signs Temp Pulse Pulse Resp BP BP Pulse Ox 12/13/19 07:07 37.6 C H 82 20 105/66 93 12/13/19 06:25 37.1 C 85 22 111/72 92 12/13/19 05:52 38.1 C H 86 19 112/71 93 12/13/19 04:52 38.6 C H 88 20 121/73 95 12/13/19 04:22 38.5 C H 88 21 135/46 L 94 12/13/19 04:07 37.6 C H 88 20 136/70 94 12/13/19 03:43 38.8 C H 89 121/76 90 12/13/19 03:24 89 20 91 12/13/19 02:10 37.7 C H 92 H 24 161/85 H 92 12/13/19 01:54 88 26 H 95 12/13/19 01:17 89 26 H 143/89 H 96 12/13/19 00:32 82 23 92/76 L 94 12/13/19 00:03 81 22 110/71 93 12/12/19 23:41 81 20 98/63 L 93 12/12/19 23:06 82 19 141/64 H 92 12/12/19 22:50 79 17 91 12/12/19 22:40 80 14 92 12/12/19 22:31 80 21 93 12/12/19 22:30 79 16 122/82 95 12/12/19 22:20 79 19 92 12/12/19 22:14 78 18 104/64 91 12/12/19 22:12 81 21 92 12/12/19 21:16 37.3 C 83 18 111/70 92 (1) Anemia Anemia type: unspecified type Qualified Code(s): D64.9 - Anemia, unspecified (2) Pneumonia Laterality: right Lung location: middle lobe of lung Pneumonia type: due to unspecified organism Qualified Code(s): J18.9 - Pneumonia, unspecified organism
[2019-12-13] MEDS: SUCRALFATE 1 GM/10 ML UDC PO SCH ×4 (08:56→20:36)
[2019-12-13] MEDS: FERROUS SULFATE 325 MG TAB PO SCH (08:57)
[2019-12-13] MEDS: OXYBUTYNIN CHLORIDE 5 MG TAB PO SCH ×2 (08:57→20:36)
[2019-12-13] MEDS: TAMSULOSIN HCL 0.4 MG CAP PO SCH (08:57)
[2019-12-13] MEDS: ASPIRIN 81 MG ECTAB PO SCH (08:57)
[2019-12-13] MEDS: FLUTICASONE PROPIONATE NA SPR 16 GM BTL SCH (08:57)
[2019-12-13] MEDS: nadoloL 40 MG TAB PO SCH (08:57)
[2019-12-13] MEDS: CEROVITE ADV FORMULA TAB PO SCH (08:58)
[2019-12-13] MEDS: PANTOprazole 40 MG TAB PO SCH (08:58)
[2019-12-13] MEDS: FAMOTIDINE 20 MG TAB PO SCH ×2 (08:58→20:36)
[2019-12-13] MEDS: NYSTATIN POWDER 15GM BTL EXT SCH ×3 (08:58→20:36)
[2019-12-13] MEDS: GABAPENTIN 300 MG CAP PO SCH ×2 (08:58→12:40)
[2019-12-13] MEDS: ESCITALOPRAM OXALATE 20 MG TAB PO SCH (08:58)
[2019-12-13] MEDS: ASCORBIC ACID 500 MG TAB PO SCH (08:59)
[2019-12-13] MEDS: INSULIN ASPART 100 UNITS/ML 3 ML PEN SC SCH ×4 (09:06→20:36)
--- NOTE | 2019-12-13 10:16 | Hospitalist Progress Note ---
Date of Service December 13, 2019 Assessment & Plan (1) Right middle lobe pneumonia: Has been complaining of cough with shortness of breath for 1 month and fever Chest x-ray noted to be right middle lobe infiltration Could be secondary to aspiration Started with intravenous Invanz and IV doxycycline Blood culture has been sent Clinically better (2) Shortness of breath: Secondary to pneumonia Has persistent asthma and restrictive lung disease which are complicating current pneumonia Has been improving (3) Cirrhosis: Has [place] cirrhosis with nonbleeding grade 1 varices as of endoscopy on 11/27/2019 Chronic anemia secondary to iron deficiency Pancytopenia secondary to cirrhosis Appreciate GI input and recommendation No overt bleeding Continue PPI (4) DMII (diabetes mellitus, type 2): We will hold any metformin SSI (5) Anemia: Chronic anemia as above Hemoglobin 7.7 today Monitor H&H while in the hospital (6) Ambulatory dysfunction: Has cerebral palsy and obesity is complicating with ambulation Uses wheelchair to move around (7) Cerebral palsy: As above Other medical conditions including Morbid obesity Obstructive sleep apnea Hypertension GERD Chronic pain syndrome Hypothyroidism Remain stable and will continue supportive medications as before DVT prophylaxis SCDs CODE STATUS Full We will discussed with the this afternoon Admission and Anticipated Discharge Date Admission Date: December 13, 2019 Subjective The patient was seen and examined in medical telemetry unit She is a 64-year-old obese female with significant past medical history of cerebral palsy with bedbound status, type 2 diabetes, sleep apnea, Thompson cirrhosis and other medical conditions as mentioned in H&P was admitted yesterday with cough, fever and shortness of breath which has been going on for about 1 month. Chest x-ray showed right middle lobe infiltration She has been feeling much better as of this morning Besides minimal shortness of breath denies any other significant symptoms Review of Systems Review of Systems: All systems reviewed and are unremarkable except as noted below Respiratory: + dyspnea (Minimal at rest) Physical Exam Physical Exam: Lying in bed with minimal distress due to shortness of breath Constitutional: well developed, well nourished, + acute distress (Minimal shortness of breath), + ill appearing and + morbidly obese Eyes: PERRL, conjunctivae normal, anicteric sclerae ENMT: external ear and nose normal, oropharynx normal Neck: trachea midline, no thyromegaly Respiratory: + respiratory distress (Minimal distress without desaturation on 2 L) Auscultation: + diminished lung sounds and + crackles (Right lower lung) Cardiovascular: Rate/Rhythm: regular rate and regular rhythm Heart Sounds: no murmur Gastrointestinal (Abdomen): Inspection/Auscultation: + abdomen distended Percussion/Palpation: abdomen soft; abdomen nontender Musculoskeletal: No acute arthritis involving any joints Neurologic: moves all extremities Has cerebral palsy and requires assistance in ADLs. Mobile with wheelchair Results & Data Results & Data ([facility]) Vital Signs (Past 12 Hours) Vital Signs Temp Pulse Pulse Resp BP BP Pulse Ox 12/13/19 07:07 37.6 C H 82 20 105/66 93 12/13/19 06:25 37.1 C 85 22 111/72 92 12/13/19 05:52 38.1 C H 86 19 112/71 93 12/13/19 04:52 38.6 C H 88 20 121/73 95 12/13/19 04:22 38.5 C H 88 21 135/46 L 94 12/13/19 04:07 37.6 C H 88 20 136/70 94 12/13/19 03:43 38.8 C H 89 121/76 90 12/13/19 03:24 89 20 91 12/13/19 02:10 37.7 C H 92 H 24 161/85 H 92 12/13/19 01:54 88 26 H 95 12/13/19 01:17 89 26 H 143/89 H 96 12/13/19 00:32 82 23 92/76 L 94 12/13/19 00:03 81 22 110/71 93 12/12/19 23:41 81 20 98/63 L 93 12/12/19 23:06 82 19 141/64 H 92 12/12/19 22:50 79 17 91 12/12/19 22:40 80 14 92 12/12/19 22:31 80 21 93 12/12/19 22:30 79 16 122/82 95 12/12/19 22:20 79 19 92 12/12/19 22:14 78 18 104/64 91 12/12/19 22:12 81 21 92 Laboratory Results Short CBC 12/12/19 12/13/19 Range/Units 22:17 07:13 WBC 4.25 L 3.35 L (4.8-10.8) K/uL Hgb 7.8 L 7.7 L (12.0-16.0) g/dL Hct 26.0 L 24.4 L (37-47) % Plt Count 89 L 74 L (130-400) K/uL BMP 12/12/19 12/13/19 22:17 07:13 Sodium 140 141 Potassium 4.0 3.4 L Chloride 110 H 110 H Carbon Dioxide 22 24 BUN 12 12 Creatinine 0.88 0.75 Glucose 199 H 205 H Calcium 8.7 8.1 L Cardiac Enzymes 12/12/19 Range/Units 22:17 Troponin I < 0.015 (0-0.045) ng/ml Liver Function 12/12/19 Range/Units 22:17 Total Bilirubin 1.1 H (0.2-1) mg/dl Direct Bilirubin 0.4 H (0-0.2) mg/dl AST 45 H (15-37) U/L ALT 31 (12-78) U/L Alkaline Phosphatase 104 (45-117) U/L Albumin 2.8 L (3.4-5.0) gm/dl Medications Administered Current Inpatient Medications Acetaminophen (Tylenol) 650 mg PO Q4H PRN PRN Reason: Pain or Fever Stop: 01/12/20 01:29 Last Admin: 12/13/19 05:58 Dose: 650 mg Documented by: Albuterol (Ventolin Hfa) 2 puffs INH Q4H PRN PRN Reason: Wheezing Stop: 01/12/20 01:29 Albuterol (Ventolin 0.083% 2.5mg/3ml) 2.5 mg INH Q6H PRN PRN Reason: Wheezing Stop: 01/12/20 01:29 Ascorbic Acid (Vitamin C) 500 mg PO [facility] Stop: 01/12/20 08:59 Last Admin: 12/13/19 08:59 Dose: 500 mg Documented by: Aspirin (Ecotrin Ectab) [facility] Stop: 01/12/20 08:59 Last Admin: 12/13/19 08:57 Dose: 81 mg Documented by: Atorvastatin Calcium (Lipitor) 40 mg PO [facility] Stop: 01/12/20 20:59 Cyclobenzaprine HCl (Flexeril) 10 mg PO [facility] Stop: 01/12/20 20:59 Dextrose (Dextrose 50%) 25 - 50 ml IV UD PRN; Protocol PRN Reason: Hypoglycemia Protocol Stop: 01/12/20 02:14 Ertapenem (Consult) 1 ea N/A UD PRN PRN Reason: Consult Stop: 01/12/20 01:59 Escitalopram Oxalate (Lexapro Tab) 20 mg PO QAM [facility] Stop: 01/12/20 08:59 Last Admin: 12/13/19 08:58 Dose: 20 mg Documented by: Famotidine (Pepcid) 20 mg PO BID COUNT [facility] Stop: 01/12/20 08:59 Last Admin: 12/13/19 08:58 Dose: 20 mg Documented by: Ferrous Sulfate (Feosol) 325 [facility] Stop: 01/12/20 08:59 Last Admin: 12/13/19 08:57 Dose: 325 mg Documented by: Fluticasone Propionate (Flonase) 2 sprays NA QAM COUNT [facility]CLUD[facility] Stop: 01/12/20 08:59 Last Admin: 12/13/19 08:57 Dose: 2 sprays Documented by: Gabapentin (Neurontin) 300 mg PO BID@0900,1400 COUNT [facility] Stop: 01/12/20 08:59 Last Admin: 12/13/19 08:58 Dose: 300 mg Documented by: Glucagon (Glucagen) 1 mg SQ UD PRN; Protocol PRN Reason: Hypoglycemia Protocol Stop: 01/12/20 02:14 Glucose (Glucose 40%) 15 - 30 gm PO UD PRN; Protocol PRN Reason: Hypoglycemia Protocol Stop: 01/12/20 02:14 Glucose (Dex4 Glucose) 4 - 8 tabs PO UD PRN; Protocol PRN Reason: Hypoglycemia Protocol Stop: 01/12/20 02:14 Ertapenem 1,000 mg/ Sodium (Chloride) 60 mls @ 100 mls/hr IV Q24H [facility] Stop: 12/18/19 23:35 Doxycycline Hyclate 100 mg/ (Dextrose) 110 mls @ 50 mls/hr IV BID COUNT [facility]CLUD[facility] Stop: 12/20/19 01:29 Last Admin: 12/13/19 08:59 Dose: 50 mls/hr Documented by: Sodium Chloride (Nss 1000ml) 1,000 mls @ 100 mls/hr IV .Q10H COUNT [facility]CLUDES [facility] Stop: 01/12/20 01:29 Last Admin: 12/13/19 01:59 Dose: 100 mls/hr Documented by: Sodium Chloride (Nss) 250 mls @ 15 mls/hr IV .[id number] PRN PRN Reason: For Transfusion Stop: 12/13/19 13:22 Insulin Aspart (Novolog Flexpen) 0 units SC ACHS COUNT [facility]CLUD[facility] Stop: 01/12/20 07:29 Last Admin: 12/13/19 09:06 Dose: 5 units Documented by: Insulin Glargine (Lantus Solostar Pen) 24 units SQ HS COUNT [facility]CLUD[facility] Stop: 01/12/20 20:59 Levothyroxine Sodium (Synthroid) 150 mcg PO DAILYBB COUNT [facility]CLUDES [facility] Stop: 01/12/20 06:29 Last Admin: 12/13/19 06:31 Dose: 150 mcg Documented by: Miscellaneous (Carbohydrates For Hypoglycemia) 15 - 30 gm PO UD PRN PRN Reason: Hypoglycemia Treatment Stop: 01/12/20 02:14 Multivitamins/Minerals (Multivitamin W/ Minerals Tab) [facility] Stop: 01/12/20 08:59 Last Admin: 12/13/19 08:58 Dose: 1 tab Documented by: Nadolol (Corgard) 40 mg PO QAM COUNT [facility]CLUD[facility] Stop: 01/12/20 08:59 Last Admin: 12/13/19 08:57 Dose: 40 mg Documented by: Nitroglycerin (Nitrostat) 0.4 mg SL UD PRN PRN Reason: Chest Pain Stop: 01/12/20 01:29 Nystatin (Mycostatin) 1 appln EXT TID COUNT [facility]CLUD[facility] Stop: 01/12/20 08:59 Last Admin: 12/13/19 08:58 Dose: 1 appln Documented by: Ondansetron HCl (Zofran) 4 mg IV Q6H PRN PRN Reason: Nausea Stop: 01/12/20 01:29 Oxybutynin Chloride (Ditropan) 5 mg PO BID COUNT [facility] Stop: 01/12/20 08:59 Last Admin: 12/13/19 08:57 Dose: 5 mg Documented by: Pantoprazole Sodium (Protonix) 40 mg PO QAM COUNT [facility]CLUDES [facility] Stop: 01/12/20 08:59 Last Admin: 12/13/19 08:58 Dose: 40 mg Documented by: Sucralfate (Carafate) 1 gm PO QID COUNT [facility]CLUD[facility] Stop: 01/12/20 08:59 Last Admin: 12/13/19 08:56 Dose: 1 gm Documented by: Tamsulosin HCl (Flomax) 0.4 mg [facility] Stop: 01/12/20 08:59 Last Admin: 12/13/19 08:57 Dose: 0.4 mg Documented by: Trazodone HCl (Desyrel) 50 mg PO [facility] Stop: 01/12/20 20:59 (1) Anemia Anemia type: unspecified type Qualified Code(s): D64.9 - Anemia, unspecified (2) Cerebral palsy Cerebral palsy type: unspecified type Qualified Code(s): G80.9 - Cerebral palsy, unspecified
[2019-12-13] MEDS ORDERED: POTASSIUM CHLORIDE 20 MEQ TABCR PO STA (11:34)
[2019-12-13] MEDS: LEVOFLOXACIN/D5W 750 MG/150 ML BAG IV SCH (14:11)
--- NOTE | 2019-12-13 14:47 | Electrocardiogram Report ---
Test Reason : Blood Pressure : / mmHG Vent. Rate : 079 BPM Atrial Rate : 079 BPM P-R Int : 200 ms QRS Dur : 092 ms QT Int : 406 ms P-R-T Axes : 063 -04 047 degrees QTc Int : 465 ms Normal sinus rhythm Low voltage QRS Borderline ECG When compared with ECG of 28-NOV-2019 22:36, No significant change was found Confirmed by Papito Hull ([id number]) on 12/13/2019 2:47:12 PM Referred By: REFERRED SELF Confirmed By:Papito Hull
[2019-12-13] MEDS: TRAZODONE HCL 50 MG TAB PO SCH (20:36)
[2019-12-13] MEDS: ATORVASTATIN 40 MG TAB PO SCH (20:36)
[2019-12-13] MEDS: CYCLOBENZAPRINE HCL 10 MG TAB PO SCH (20:36)
[2019-12-13] MEDS: INSULIN GLARGINE SOLOSTAR 100 UNITS/ML 3 ML PEN SQ SCH (20:37)
[2019-12-13] MEDS ORDERED: ERTAPENEM SODIUM 1,000 MG in SODIUM CHLORIDE 0.9% 50 ML IV SCH (23:00)
[2019-12-14] MEDS: SODIUM CHLORIDE 0.9% 1000ML 1,000 ML IV SCH ×2 (00:18→07:57)
[2019-12-14] MEDS: LEVOTHYROXINE SODIUM 150 MCG TABLET PO SCH (05:18)
[2019-12-14] MEDS: nadoloL 40 MG TAB PO SCH (07:57)
[2019-12-14] MEDS: SUCRALFATE 1 GM/10 ML UDC PO SCH ×4 (07:57→20:32)
[2019-12-14] MEDS: GABAPENTIN 300 MG CAP PO SCH ×2 (07:58→13:16)
[2019-12-14] MEDS: TAMSULOSIN HCL 0.4 MG CAP PO SCH (07:58)
[2019-12-14] MEDS: ASPIRIN 81 MG ECTAB PO SCH (07:58)
[2019-12-14] MEDS: NYSTATIN POWDER 15GM BTL EXT SCH ×3 (07:58→20:35)
[2019-12-14] MEDS: ASCORBIC ACID 500 MG TAB PO SCH (07:58)
[2019-12-14] MEDS: FAMOTIDINE 20 MG TAB PO SCH ×2 (07:58→20:33)
[2019-12-14] MEDS: CEROVITE ADV FORMULA TAB PO SCH (07:58)
[2019-12-14] MEDS: ESCITALOPRAM OXALATE 20 MG TAB PO SCH (07:58)
[2019-12-14] MEDS: PANTOprazole 40 MG TAB PO SCH (07:58)
[2019-12-14] MEDS: INSULIN ASPART 100 UNITS/ML 3 ML PEN SC SCH ×4 (07:58→20:34)
[2019-12-14] MEDS: FERROUS SULFATE 325 MG TAB PO SCH (07:58)
[2019-12-14] MEDS: FLUTICASONE PROPIONATE NA SPR 16 GM BTL SCH (07:58)
[2019-12-14] MEDS: OXYBUTYNIN CHLORIDE 5 MG TAB PO SCH ×2 (07:58→20:31)
[2019-12-14 09:59] LABS: Mean Corpuscular Hgb Conc 30.3 g/dL (32-36)
[2019-12-14 10:16] LABS: Hematocrit (blood only) 27.1 % (37-47); Hemoglobin 8.2 g/dL (12.0-16.0); Mean Corpuscular Hemoglobin 30.1 pg (25-34); Mean Corpuscular Volume 99.6 fL (80-100); RDW Coefficient of Variation 24.3 % (11.5-14.5); RDW Standard Deviation 85.8 fL (36.4-46.3); Red Blood Count 2.72 M/uL (4.2-5.4); White Blood Count 2.36 K/uL (4.8-10.8)
[2019-12-14 10:23] LABS: Anisocytosis Present; Basophils # (auto) 0.01 K/uL (0-0.2); Basophils % (auto) 0.4 %; Eosinophils # (auto) 0.19 K/uL (0-0.5); Eosinophils % (auto) 8.1 %; Lymphocytes # (auto) 0.57 K/uL (1.2-3.4); Lymphocytes % (auto) 24.2 %; Monocytes # (auto) 0.21 K/uL (0.11-0.59); Monocytes % (auto) 8.9 %; Neutrophils # (auto) 1.38 K/uL (1.4-6.5); Neutrophils % (auto) 58.4 %; Platelet Count 80 K/uL (130-400); Platelet Estimate Decreased (Normal); Polychromasia 1+; Tear Drop Cells 1+
--- NOTE | 2019-12-14 10:24 | Hospitalist Progress Note ---
Date of Service December 14, 2019 Assessment & Plan (1) Right middle lobe pneumonia: Has been complaining of cough with shortness of breath for 1 month and fever Chest x-ray noted to be right middle lobe infiltration Could be secondary to aspiration Started with intravenous Invanz and IV doxycycline Blood culture has been sent-pending for now Antibiotics were changed to IV Levaquin Clinically much better today We will provide incentive spirometry and EKG to rule out any QT prolongation (2) Shortness of breath: Secondary to pneumonia Has persistent asthma and restrictive lung disease which are complicating current pneumonia Has been improving Will DC intravenous fluid (3) Cirrhosis: 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 as of endoscopy on 11/27/2019 Chronic anemia secondary to iron deficiency Pancytopenia secondary to cirrhosis Appreciate GI input and recommendation No overt bleeding Continue PPI (4) DMII (diabetes mellitus, type 2): We will hold any metformin SSI (5) Anemia: Chronic anemia as above Hemoglobin 7.7 today Monitor H&H while in the hospital Hemoglobin is 8.2 as of 12/14/2019 (6) Ambulatory dysfunction: Has cerebral palsy and obesity is complicating with ambulation Uses wheelchair to move around (7) Cerebral palsy: As above Other medical conditions including Morbid obesity Obstructive sleep apnea Hypertension GERD Chronic pain syndrome Hypothyroidism Remain stable and will continue supportive medications as before DVT prophylaxis SCDs CODE STATUS Full We will discussed with the Likely discharge tomorrow Admission and Anticipated Discharge Date Admission Date: December 13, 2019 Subjective The patient was seen and examined in medical telemetry unit She is a 64-year-old obese female with significant past medical history of cerebral palsy with bedbound status, type 2 diabetes, sleep apnea, [place] cirrhosis and other medical conditions as mentioned in H&P was admitted yesterday with cough, fever and shortness of breath which has been going on for about 1 month. Chest x-ray showed right middle lobe infiltration She has been feeling much better as of this morning Besides minimal shortness of breath denies any other significant symptoms 12/14/2019 Patient is seen and examined in medical telemetry unit She feels lot better today and has minimal cough Denies any other significant symptoms No fever and/or chills She wants to go home Review of Systems Review of Systems: All systems reviewed and are unremarkable except as noted below Respiratory: + dyspnea (Minimal at rest) Physical Exam Physical Exam: Lying in bed with minimal distress due to shortness of breath Constitutional: well developed, well nourished and + morbidly obese; no acute distress (Minimal shortness of breath) Eyes: PERRL, conjunctivae normal, anicteric sclerae ENMT: external ear and nose normal, oropharynx normal Neck: trachea midline, no thyromegaly Respiratory: + respiratory distress (Minimal distress without desaturation on 2 L) Auscultation: + diminished lung sounds and + crackles (Right lower lung) Cardiovascular: Rate/Rhythm: regular rate and regular rhythm Heart Sounds: no murmur Extremities: + edema Chronic bilateral edema/lymphedema Gastrointestinal (Abdomen): Inspection/Auscultation: + abdomen distended Percussion/Palpation: abdomen soft; abdomen nontender Musculoskeletal: No acute arthritis in any joints Neurologic: moves all extremities Has cerebral palsy and is mostly bedbound Results & Data Results & Data ([facility]) Vital Signs (Past 12 Hours) Vital Signs Temp Pulse Pulse Resp BP Pulse Ox 12/14/19 08:58 59 L 12/14/19 06:55 36.9 C 57 L 18 98/65 L 92 12/14/19 04:33 36.3 C L 61 18 121/66 92 12/14/19 02:58 58 L 10 L 93 12/13/19 23:30 37.1 C 66 20 100/64 92 Laboratory Results Short CBC 12/14/19 Range/Units 09:46 WBC 2.36 L (4.8-10.8) K/uL Hgb 8.2 L (12.0-16.0) g/dL Hct 27.1 L (37-47) % Medications Administered Current Inpatient Medications Acetaminophen (Tylenol) 650 mg PO Q4H PRN PRN Reason: Pain or Fever Stop: 01/12/20 01:29 Last Admin: 12/13/19 19:48 Dose: 650 mg Documented by: Albuterol (Ventolin Hfa) 2 puffs INH Q4H PRN PRN Reason: Wheezing Stop: 01/12/20 01:29 Albuterol (Ventolin 0.083% 2.5mg/3ml) 2.5 mg INH Q6H PRN PRN Reason: Wheezing Stop: 01/12/20 01:29 Ascorbic Acid (Vitamin C) [address] [facility] Stop: 01/12/20 08:59 Last Admin: 12/14/19 07:58 Dose: 500 mg Documented by: Aspirin (Ecotrin Ectab) 81 [facility] Stop: 01/12/20 08:59 Last Admin: 12/14/19 07:58 Dose: 81 mg Documented by: Atorvastatin Calcium (Lipitor) 40 mg PO [facility] Stop: 01/12/20 20:59 Last Admin: 12/13/19 20:36 Dose: 40 mg Documented by: Cyclobenzaprine HCl (Flexeril) 10 mg PO [facility] Stop: 01/12/20 20:59 Last Admin: 12/13/19 20:36 Dose: 10 mg Documented by: Dextrose (Dextrose 50%) 25 - 50 ml IV UD PRN; Protocol PRN Reason: Hypoglycemia Protocol Stop: 01/12/20 02:14 Escitalopram Oxalate (Lexapro Tab) [address] [facility] Stop: 01/12/20 08:59 Last Admin: 12/14/19 07:58 Dose: 20 mg Documented by: Famotidine (Pepcid) 20 mg PO BID [facility] Stop: 01/12/20 08:59 Last Admin: 12/14/19 07:58 Dose: 20 mg Documented by: Ferrous Sulfate (Feosol) [address] [facility] Stop: 01/12/20 08:59 Last Admin: 12/14/19 07:58 Dose: 325 mg Documented by: Fluticasone Propionate (Flonase) 2 sprays [facility] Stop: 01/12/20 08:59 Last Admin: 12/14/19 07:58 Dose: 2 sprays Documented by: Gabapentin (Neurontin) 300 mg PO BID@0900,1400 [facility] Stop: 01/12/20 08:59 Last Admin: 12/14/19 07:58 Dose: 300 mg Documented by: Glucagon (Glucagen) 1 mg SQ UD PRN; Protocol PRN Reason: Hypoglycemia Protocol Stop: 01/12/20 02:14 Glucose (Glucose 40%) 15 - 30 gm PO UD PRN; Protocol PRN Reason: Hypoglycemia Protocol Stop: 01/12/20 02:14 Glucose (Dex4 Glucose) 4 - 8 tabs PO UD PRN; Protocol PRN Reason: Hypoglycemia Protocol Stop: 01/12/20 02:14 Levofloxacin/Dextrose (Levaquin/D5w) 750 mg in 150 mls @ 100 mls/hr IV Q24H [facility] Stop: 12/20/19 13:59 Last Infusion: 12/13/19 15:41 Dose: Infused Documented by: Insulin Aspart (Novolog Flexpen) 0 units SC ACHS [facility] Stop: 01/12/20 07:29 Last Admin: 12/14/19 07:58 Dose: 2 units Documented by: Insulin Glargine (Lantus Solostar Pen) 24 units SQ HS [facility] Stop: 01/12/20 20:59 Last Admin: 12/13/19 20:37 Dose: 24 units Documented by: Levothyroxine Sodium (Synthroid) 150 mcg PO DAILYBB [facility] Stop: 01/12/20 06:29 Last Admin: 12/14/19 05:18 Dose: 150 mcg Documented by: Miscellaneous (Carbohydrates For Hypoglycemia) 15 - 30 gm PO UD PRN PRN Reason: Hypoglycemia Treatment Stop: 01/12/20 02:14 Multivitamins/Minerals (Multivitamin W/ Minerals Tab) 1 tab PO QAM [facility] Stop: 01/12/20 08:59 Last Admin: 12/14/19 07:58 Dose: 1 tab Documented by: Nadolol (Corgard) 40 [facility] Stop: 01/12/20 08:59 Last Admin: 12/14/19 07:57 Dose: 40 mg Documented by: Nitroglycerin (Nitrostat) 0.4 mg SL UD PRN PRN Reason: Chest Pain Stop: 01/12/20 01:29 Nystatin (Mycostatin) 1 appln EXT TID [facility] Stop: 01/12/20 08:59 Last Admin: 12/14/19 07:58 Dose: 1 appln Documented by: Ondansetron HCl (Zofran) 4 mg IV Q6H PRN PRN Reason: Nausea Stop: 01/12/20 01:29 Oxybutynin Chloride (Ditropan) 5 mg PO BID [facility] Stop: 01/12/20 08:59 Last Admin: 12/14/19 07:58 Dose: 5 mg Documented by: Pantoprazole Sodium (Protonix) 40 mg PO QAM [facility] Stop: 01/12/20 08:59 Last Admin: 12/14/19 07:58 Dose: 40 mg Documented by: Sucralfate (Carafate) 1 gm PO QID [facility] Stop: 01/12/20 08:59 Last Admin: 12/14/19 07:57 Dose: 1 gm Documented by: Tamsulosin HCl (Flomax) 0.[address] [facility] Stop: 01/12/20 08:59 Last Admin: 12/14/19 07:58 Dose: 0.4 mg Documented by: Trazodone HCl (Desyrel) 50 mg PO [facility] Stop: 01/12/20 20:59 Last Admin: 12/13/19 20:36 Dose: 50 mg Documented by: (1) Anemia Anemia type: unspecified type Qualified Code(s): D64.9 - Anemia, unspecified (2) Cerebral palsy Cerebral palsy type: unspecified type Qualified Code(s): G80.9 - Cerebral palsy, unspecified
[2019-12-14 10:32] LABS: BUN Creatinine Ratio 18.8 (10-20); Calcium 8.2 mg/dl (8.5-10.1); Creatinine Clr Calc Pharmacy 98.6 ml/min; Est GFR (African American) 106.6
[2019-12-14] MEDS: ACETAMINOPHEN 325 MG TAB PO PRN (12:12)
[2019-12-14] MEDS: LEVOFLOXACIN/D5W 750 MG/150 ML BAG IV SCH (13:16)
[2019-12-14] MEDS: TRAZODONE HCL 50 MG TAB PO SCH (20:32)
[2019-12-14] MEDS: ATORVASTATIN 40 MG TAB PO SCH (20:32)
[2019-12-14] MEDS: CYCLOBENZAPRINE HCL 10 MG TAB PO SCH (20:32)
[2019-12-14] MEDS: INSULIN GLARGINE SOLOSTAR 100 UNITS/ML 3 ML PEN SQ SCH (20:34)
[2019-12-15] MEDS: LEVOTHYROXINE SODIUM 150 MCG TABLET PO SCH (06:29)
--- NOTE | 2019-12-15 08:04 | XRay Report ---
XR chest 1V portable CLINICAL HISTORY: pneumonia COMPARISON STUDY: Chest CT November 20, 2019. Chest radiograph December 12, 2019. FINDINGS: Moderate cardiomegaly is noted. There is no evidence for pulmonary edema. There is no pneum othorax or pleural effusion. Patient is mildly rotated. Right infrahilar opacity has mildly improved. IMPRESSION: 1. Mild improvement in right infrahilar opacity. 2. Moderate cardiomegaly without evidence for pulmonary edema. ACT 112: Negative or not required by law. Electronically signed by: Lucas Lambert M.D. 12/15/2019 8:03 AM
[2019-12-15] MEDS: ASCORBIC ACID 500 MG TAB PO SCH (08:35)
[2019-12-15] MEDS: FAMOTIDINE 20 MG TAB PO SCH (08:36)
[2019-12-15] MEDS: CEROVITE ADV FORMULA TAB PO SCH (08:36)
[2019-12-15] MEDS: OXYBUTYNIN CHLORIDE 5 MG TAB PO SCH (08:36)
[2019-12-15] MEDS: ASPIRIN 81 MG ECTAB PO SCH (08:36)
[2019-12-15] MEDS: GABAPENTIN 300 MG CAP PO SCH (08:37)
[2019-12-15] MEDS: nadoloL 40 MG TAB PO SCH (08:37)
[2019-12-15] MEDS: ESCITALOPRAM OXALATE 20 MG TAB PO SCH (08:37)
[2019-12-15] MEDS: TAMSULOSIN HCL 0.4 MG CAP PO SCH (08:38)
[2019-12-15] MEDS: FERROUS SULFATE 325 MG TAB PO SCH (08:38)
[2019-12-15] MEDS: PANTOprazole 40 MG TAB PO SCH (08:38)
[2019-12-15] MEDS: SUCRALFATE 1 GM/10 ML UDC PO SCH (08:39)
[2019-12-15] MEDS: NYSTATIN POWDER 15GM BTL EXT SCH (08:39)
[2019-12-15] MEDS: FLUTICASONE PROPIONATE NA SPR 16 GM BTL SCH (08:40)
[2019-12-15] MEDS: INSULIN ASPART 100 UNITS/ML 3 ML PEN SC SCH ×2 (08:41→12:07)
--- NOTE | 2019-12-15 09:34 | Hospitalist Progress Note ---
Date of Service December 15, 2019 Assessment & Plan (1) Right middle lobe pneumonia: Has been complaining of cough with shortness of breath for 1 month and fever Chest x-ray noted to be right middle lobe infiltration Could be secondary to aspiration Started with intravenous Invanz and IV doxycycline Blood culture has been sent-pending for now Antibiotics were changed to IV Levaquin Clinically much better today We will provide incentive spirometry and EKG to rule out any QT prolongation Clinically a lot better and the chest x-ray showing improvement of pneumonia EKG did not show any QT prolonging Will be discharged home this afternoon on oral Levaquin for a total of 10 days (2) Shortness of breath: Secondary to pneumonia Has persistent asthma and restrictive lung disease which are complicating current pneumonia Has been improving Will DC intravenous fluid Improved (3) Cirrhosis: 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 as of endoscopy on 11/27/2019 Chronic anemia secondary to iron deficiency Pancytopenia secondary to cirrhosis Appreciate GI input and recommendation No overt bleeding Continue PPI (4) DMII (diabetes mellitus, type 2): We will hold any metformin SSI (5) Anemia: Chronic anemia as above Hemoglobin 7.7 today Monitor H&H while in the hospital Hemoglobin is 8.2 as of 12/14/2019 (6) Ambulatory dysfunction: Has cerebral palsy and obesity is complicating with ambulation Uses wheelchair to move around (7) Cerebral palsy: As above Other medical conditions including Morbid obesity Obstructive sleep apnea Hypertension GERD Chronic pain syndrome Hypothyroidism Remain stable and will continue supportive medications as before DVT prophylaxis SCDs CODE STATUS Full We will discussed with the Discharge home this afternoon Admission and Anticipated Discharge Date Admission Date: December 13, 2019 Subjective The patient was seen and examined in medical telemetry unit She is a 64-year-old obese female with significant past medical history of cerebral palsy with bedbound status, type 2 diabetes, sleep apnea, Thompson cirrhosis and other medical conditions as mentioned in H&P was admitted yesterday with cough, fever and shortness of breath which has been going on for about 1 month. Chest x-ray showed right middle lobe infiltration She has been feeling much better as of this morning Besides minimal shortness of breath denies any other significant symptoms 12/14/2019 Patient is seen and examined in medical telemetry unit She feels lot better today and has minimal cough Denies any other significant symptoms No fever and/or chills She wants to go home 12/15/2019 Patient was seen and examined in medical telemetry unit She has been feeling a lot better and denies any cough, shortness of breath, no nausea and no vomiting and no fever no chills Review of Systems Review of Systems: All systems reviewed and are unremarkable except as noted below Respiratory: no dyspnea Physical Exam Physical Exam: Lying in bed comfortably Constitutional: well developed, well nourished and + morbidly obese; no acute distress (Minimal shortness of breath) Eyes: PERRL, conjunctivae normal, anicteric sclerae ENMT: external ear and nose normal, oropharynx normal Neck: trachea midline, no thyromegaly Respiratory: no respiratory distress (Minimal distress without desaturation on 2 L) Auscultation: + diminished lung sounds and + crackles (Right lower lung) Cardiovascular: Rate/Rhythm: regular rate and regular rhythm Heart Sounds: no murmur Extremities: + edema Gastrointestinal (Abdomen): Inspection/Auscultation: + abdomen distended Percussion/Palpation: abdomen soft; abdomen nontender Neurologic: moves all extremities Lymphatic: no cervical or axillary lymphadenopathy Results & Data Results & Data ([facility]) Vital Signs (Past 12 Hours) Vital Signs Temp Pulse Pulse Resp BP BP Pulse Ox 12/15/19 07:28 36.5 C 62 22 99/53 L 93 12/15/19 04:34 36.9 C 62 20 113/70 93 12/15/19 02:58 67 26 H 95 12/15/19 00:13 62 12/15/19 00:06 36.8 C 63 20 100/71 95 12/14/19 22:36 62 14 92 Laboratory Results Short CBC 12/14/19 Range/Units 09:46 WBC 2.36 L (4.8-10.8) K/uL Hgb 8.2 L (12.0-16.0) g/dL Hct 27.1 L (37-47) % Plt Count 80 L (130-400) K/uL BMP 12/14/19 09:46 Sodium 141 Potassium 4.0 D Chloride 113 H Carbon Dioxide 25 BUN 13 Creatinine 0.69 Glucose 169 H Calcium 8.2 L Medications Administered Current Inpatient Medications Acetaminophen (Tylenol) 650 mg PO Q4H PRN PRN Reason: Pain or Fever Stop: 01/12/20 01:29 Last Admin: 12/14/19 12:12 Dose: 650 mg Documented by: Albuterol (Ventolin Hfa) 2 puffs INH Q4H PRN PRN Reason: Wheezing Stop: 01/12/20 01:29 Albuterol (Ventolin 0.083% 2.5mg/3ml) 2.5 mg INH Q6H PRN PRN Reason: Wheezing Stop: 01/12/20 01:29 Ascorbic Acid (Vitamin C) 500 mg PO [facility] Stop: 01/12/20 08:59 Last Admin: 12/15/19 08:35 Dose: 500 mg Documented by: Aspirin (Ecotrin Ectab) 81 mg PO [facility] Stop: 01/12/20 08:59 Last Admin: 12/15/19 08:36 Dose: 81 mg Documented by: Atorvastatin Calcium (Lipitor) 40 mg PO [facility] Stop: 01/12/20 20:59 Last Admin: 12/14/19 20:32 Dose: 40 mg Documented by: Cyclobenzaprine HCl (Flexeril) 10 mg PO [facility] Stop: 01/12/20 20:59 Last Admin: 12/14/19 20:32 Dose: 10 mg Documented by: Dextrose (Dextrose 50%) 25 - 50 ml IV UD PRN; Protocol PRN Reason: Hypoglycemia Protocol Stop: 01/12/20 02:14 Escitalopram Oxalate (Lexapro Tab) 20 mg PO [facility] Stop: 01/12/20 08:59 Last Admin: 12/15/19 08:37 Dose: 20 mg Documented by: Famotidine (Pepcid) 20 mg PO BID [facility] Stop: 01/12/20 08:59 Last Admin: 12/15/19 08:36 Dose: 20 mg Documented by: Ferrous Sulfate (Feosol) 325 mg PO [facility] Stop: 01/12/20 08:59 Last Admin: 12/15/19 08:38 Dose: 325 mg Documented by: Fluticasone Propionate (Flonase) 2 sprays NA [facility] Stop: 01/12/20 08:59 Last Admin: 12/15/19 08:40 Dose: 2 sprays Documented by: Gabapentin (Neurontin) 300 mg PO BID@0900,1400 [facility] Stop: 01/12/20 08:59 Last Admin: 12/15/19 08:37 Dose: 300 mg Documented by: Glucagon (Glucagen) 1 mg SQ UD PRN; Protocol PRN Reason: Hypoglycemia Protocol Stop: 01/12/20 02:14 Glucose (Glucose 40%) 15 - 30 gm PO UD PRN; Protocol PRN Reason: Hypoglycemia Protocol Stop: 01/12/20 02:14 Glucose (Dex4 Glucose) 4 - 8 tabs PO UD PRN; Protocol PRN Reason: Hypoglycemia Protocol Stop: 01/12/20 02:14 Levofloxacin/Dextrose (Levaquin/D5w) 750 mg in 150 mls @ 100 mls/hr IV Q24H [facility] Stop: 12/20/19 13:59 Last Infusion: 12/14/19 16:51 Dose: Infused Documented by: Insulin Aspart (Novolog Flexpen) 0 units SC ACHS [facility] Stop: 01/12/20 07:29 Last Admin: 12/15/19 08:41 Dose: 3 units Documented by: Insulin Glargine (Lantus Solostar Pen) 24 units SQ HS [facility] Stop: 01/12/20 20:59 Last Admin: 12/14/19 20:34 Dose: 24 units Documented by: Levothyroxine Sodium (Synthroid) 150 mcg PO DAILYBB [facility] Stop: 01/12/20 06:29 Last Admin: 12/15/19 06:29 Dose: 150 mcg Documented by: Miscellaneous (Carbohydrates For Hypoglycemia) 15 - 30 gm PO UD PRN PRN Reason: Hypoglycemia Treatment Stop: 01/12/20 02:14 Multivitamins/Minerals (Multivitamin W/ Minerals Tab) 1 tab PO QAM [facility] Stop: 01/12/20 08:59 Last Admin: 12/15/19 08:36 Dose: 1 tab Documented by: Nadolol (Corgard) 40 mg PO QAM [facility] Stop: 01/12/20 08:59 Last Admin: 12/15/19 08:37 Dose: 40 mg Documented by: Nitroglycerin (Nitrostat) 0.4 mg SL UD PRN PRN Reason: Chest Pain Stop: 01/12/20 01:29 Nystatin (Mycostatin) 1 appln EXT TID [facility] Stop: 01/12/20 08:59 Last Admin: 12/15/19 08:39 Dose: 1 appln Documented by: Ondansetron HCl (Zofran) 4 mg IV Q6H PRN PRN Reason: Nausea Stop: 01/12/20 01:29 Oxybutynin Chloride (Ditropan) 5 mg PO BID [facility] Stop: 01/12/20 08:59 Last Admin: 12/15/19 08:36 Dose: 5 mg Documented by: Pantoprazole Sodium (Protonix) 40 mg PO QAM [facility] Stop: 01/12/20 08:59 Last Admin: 12/15/19 08:38 Dose: 40 mg Documented by: Sucralfate (Carafate) 1 gm PO QID [facility] Stop: 01/12/20 08:59 Last Admin: 12/15/19 08:39 Dose: 1 gm Documented by: Tamsulosin HCl (Flomax) 0.4 mg PO QAM [facility] Stop: 01/12/20 08:59 Last Admin: 12/15/19 08:38 Dose: 0.4 mg Documented by: Trazodone HCl (Desyrel) 50 mg PO HS [facility] Stop: 01/12/20 20:59 Last Admin: 12/14/19 20:32 Dose: 50 mg Documented by: (1) Anemia Anemia type: unspecified type Qualified Code(s): D64.9 - Anemia, unspecified (2) Cerebral palsy Cerebral palsy type: unspecified type Qualified Code(s): G80.9 - Cerebral palsy, unspecified
--- NOTE | 2019-12-15 10:18 | Electrocardiogram Report ---
Test Reason : Blood Pressure : / mmHG Vent. Rate : 063 BPM Atrial Rate : 063 BPM P-R Int : 196 ms QRS Dur : 092 ms QT Int : 432 ms P-R-T Axes : 065 007 065 degrees QTc Int : 442 ms Normal sinus rhythm Low voltage QRS Nonspecific ST abnormality When compared with ECG of 12-DEC-2019 22:11, No significant change was found Confirmed by Mushtaq Lazcano ([id number]) on 12/15/2019 10:17:38 AM Referred By: REFERRED SELF Confirmed By:Mushtaq Lazcano
[2019-12-15] MEDS ORDERED: levoFLOXacin 750 MG TAB PO ONE (11:45)
[2019-12-16] MEDS ORDERED: levoFLOXacin 750 MG TAB PO SCH (11:00)
--- NOTE | 2019-12-18 12:29 | Discharge Summary ---
Date of Service December 18, 2019 Admission HPI Per Admitting Provider DICTATED BY: Alexis Guardado MD DATE OF ADMISSION: 12/13/2019 CHIEF COMPLAINT: Shortness of breath, cough, and fever. HISTORY OF PRESENT ILLNESS: This is a 64-year-old female with past medical history significant for type 2 diabetes, hypothyroidism, asthma, chronic rhinitis, obstructive sleep apnea on CPAP, restrictive lung disease, venous insufficiency, hypertension, THOMPSON liver cirrhosis, obesity, GERD, urinary incontinence due to immobility, venous stasis dermatitis of both extremities, degenerative disk disease, osteoarthritis of right knee, fibromyalgia, tendinitis of right leg, cerebral palsy, chronic pain syndrome, pancytopenia, iron deficiency anemia due to chronic blood loss, splenomegaly, history of MRSA infection, recurrent depression, history of C. diff, ambulatory dysfunction, wheelchair dependent, generalized weakness, migraines. Lives with her . Presents with shortness of breath, cough, and fever at home. The patient was here in the hospital from 11/20/2019 to 11/22/2019, admitted for shortness of breath thought to be from anemia. At that time, her hemoglobin was 7.3. She is status post PRBC transfusion . She was on iron pill. She has chronic iron deficiency anemia. She followed with GI and had EGD done on 11/27/2019 which showed no active signs of bleeding, nonbleeding grade 1 varices found in the lower third of the esophagus, portal hypertensive gastropathy, gastritis. Advised to continue iron. She also followed with hematology/oncology for pancytopenia and iron deficiency anemia and the plans were to start her on IV Venofer. The patient is having dry cough since more than 1 month. She says today she had some fever of 100 degrees at home. And she was also getting short of breath. She did not sleep last night because of cough and her appetite is down today. So that is the reason she came to the ER and chest x-ray showed right middle lobe pneumonia. She has no travel history, no sick contacts. Currently, resting comfortably and hemodynamically stable. She is afebrile in the ER, blood pressure is okay. Her hemoglobin was again 7.8, platelets are 89, which is chronic, WBC 4.25. Lactic acid came back as 5.5, she has chronic lactic acidosis, last time it was 2.2, mostly secondary to her liver disease. Magnesium 1.5, which was replaced in the ER. In the ER, she is also getting 1 unit of PRBCs. Her influenza A and B are negative. We are admitting for pneumonia. Denies any headache, no blurred visions, no earache. Has some runny nose, some mild sore throat. She has mild pain from swallowing, but she recently had EGD done. No nausea, no vomiting, no diarrhea or constipation. Denies any blood in the stools or black stools. Normal bladder movements. Has chronic swelling in the lower extremities. She says she keeps her legs elevated when she is sleeping. No rash. Admission Exam Per Admitting Provider GENERAL: The patient is obese, not in acute distress. VITAL SIGNS: Temperature 37.3, pulse 81, respiratory rate 20, blood pressure 98/63, oxygen 93% on room air. HEENT: No pallor, no icterus. Pupils equal, round, reactive to light. NECK: No JVD, no neck masses. CARDIOVASCULAR: S1, S2 heard, regular rate and rhythm, no murmur, no gallop. RESPIRATORY SYSTEM: Normal AP diameter. No accessory muscle use. No wheezing, no crackles. ABDOMEN: Soft, bowel sounds present, nontender. No distention. CENTRAL NERVOUS SYSTEM: Alert and oriented x3. Obeys commands. Moves extremities. Nonfocal. EXTREMITIES: Bilateral lower extremity chronic edema present, no erythema seen. Principal Diagnosis Right middle lobe pneumonia, cirrhosis of liver due to THOMPSON Discharge Exam Constitutional well developed, well nourished and + morbidly obese; no acute distress (Minimal shortness of breath) Eyes PERRL, conjunctivae normal, anicteric sclerae ENMT external ear and nose normal, oropharynx normal Neck trachea midline, no thyromegaly Respiratory no respiratory distress (Minimal distress without desaturation on 2 L) Auscultation: + diminished lung sounds and + crackles (Right lower lung) Cardiovascular Rate/Rhythm: regular rate and regular rhythm Heart Sounds: no murmur Extremities: + edema Gastrointestinal (Abdomen) Inspection/Auscultation: + abdomen distended Percussion/Palpation: abdomen soft; abdomen nontender Neurologic moves all extremities Lymphatic no cervical or axillary lymphadenopathy Discharge Data Allergies Allergy/AdvReac Type Severity Reaction Status Date / Time Penicillins Allergy Intermediate Hives Verified 12/12/19 22:32 Consultations 12/12/19 23:03 ED Decision to Admit Stat 12/13/19 01:30 Consult Case Management - Discharge Planning Routine 12/13/19 08:00 Consult Gastroenterology Routine Hospital Course (1) Right middle lobe pneumonia: Has been complaining of cough with shortness of breath for 1 month and fever Chest x-ray noted to be right middle lobe infiltration Could be secondary to aspiration Started with intravenous Invanz and IV doxycycline Blood culture has been sent-pending for now Antibiotics were changed to IV Levaquin Clinically much better today We will provide incentive spirometry and EKG to rule out any QT prolongation Clinically a lot better and the chest x-ray showing improvement of pneumonia EKG did not show any QT prolonging Will be discharged home this afternoon on oral Levaquin for a total of 10 days (2) Shortness of breath: Secondary to pneumonia Has persistent asthma and restrictive lung disease which are complicating current pneumonia Has been improving Will DC intravenous fluid Improved (3) Cirrhosis: 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 as of endoscopy on 11/27/2019 Chronic anemia secondary to iron deficiency Pancytopenia secondary to cirrhosis Appreciate GI input and recommendation No overt bleeding Continue PPI (4) DMII (diabetes mellitus, type 2): We will hold any metformin SSI (5) Anemia: Chronic anemia as above Hemoglobin 7.7 today Monitor H&H while in the hospital Hemoglobin is 8.2 as of 12/14/2019 (6) Ambulatory dysfunction: Has cerebral palsy and obesity is complicating with ambulation Uses wheelchair to move around (7) Cerebral palsy: As above Other medical conditions including Morbid obesity Obstructive sleep apnea Hypertension GERD Chronic pain syndrome Hypothyroidism Remain stable and will continue supportive medications as before DVT prophylaxis SCDs CODE STATUS Full We will discussed with the Discharge home this afternoon Total Time Total Time Spent Total Time Spent (In Minutes): 35 minutes Total Time Includes: Examination of the Patient, Discharge Planning, Medication Reconciliation and Communication With Other Providers Discharge Plan Discharge Items Patient Disposition: Home - Self-Care Reason For Visit: SOB Discharge Diagnosis: Right middle lobe pneumonia, cirrhosis of liver due to THOMPSON Condition on Discharge: Good Activity: Resume your previous activity Non-emergency contact: Primary Care Provider Call non-emergency contact if: you have any medication questions Follow-up/Referrals: Rajwinder Carter DO [Primary Care Provider] - (Your doctor's office will call with an appointment) Diet: Heart Healthy Addtl Attending Provider Instructions: Please finish the course of antibiotic Take precaution to avoid falls Pending Studies at Discharge: No Stand-Alone Forms: [facility], Smoking Cessation Medications and DC Order Prescriptions: New levofloxacin 750 mg Tablet 750 mg PO DAILY@1100 7 Days Qty: 7 RF: 0 Lactinex 1 million cell tablet,chewable 1 tab PO TID Qty: 30 RF: 0 Continued tamsulosin 0.4 mg capsule 0.4 mg PO QAM Qty: 30 RF: 0 escitalopram oxalate 20 mg tablet 20 mg PO QAM RF: 0 fluticasone propionate [Flonase Allergy Relief] 50 mcg/actuation [place],Suspension 2 spray Intranasal QAM RF: 0 Centrum Silver 0.4-300-250 mg-mcg-mcg Tablet 1 tab PO QAM RF: 0 pantoprazole 20 mg tablet,delayed release (DR/EC) 40 mg PO QAM RF: 0 atorvastatin 40 mg tablet 40 mg PO HS RF: 0 albuterol sulfate 90 mcg/actuation Hfa Aerosol Inhaler 2 puff INHALATION Q4H PRN (Reason: Wheezing) RF: 0 oxybutynin chloride 5 mg tablet 5 mg PO BID RF: 0 nadolol 20 mg tablet 40 mg PO QAM RF: 0 cyclobenzaprine 10 mg Tablet 10 mg PO HS RF: 0 trazodone 50 mg Tablet 50 mg PO HS RF: 0 potassium chloride 10 mEq Tablet Extended Release 10 meq PO QAM RF: 0 aspirin [Aspir-81] 81 mg Tablet,Delayed Release (Dr/Ec) 81 mg PO QAM RF: 0 ascorbic acid (vitamin C) [Vitamin C] 500 mg Tablet 500 mg PO QAM RF: 0 metformin 1,000 mg Tablet 1,000 mg PO BIDM RF: 0 levothyroxine 150 mcg Tablet 150 mcg PO DAILYBB RF: 0 gabapentin 300 mg Capsule See Rx Instructions .ROUTE .COMPLEX RF: 0 furosemide [Lasix] 20 mg Tablet 20 mg PO QAM RF: 0 Lantus Solostar U-100 Insulin 100 unit/mL (3 mL) Insulin Pen 24 unit SUBCUT HS RF: 0 dulaglutide 1.5 mg/0.5 mL Pen Injector 1.5 mg subcut MO RF: 0 ferrous sulfate 325 mg (65 mg iron) Tablet 325 mg PO QAM RF: 0 nystatin 100,000 unit/gram powder 1 applic TOPICAL TID RF: 0 albuterol sulfate 2.5 mg /3 mL (0.083 %) solution for nebulization 2.5 mg inhalation Q6H PRN (Reason: Wheezing) RF: 0 semaglutide 1 mg/dose (2 mg/1.5 mL) Pen Injector 1 mg SUBCUT WK RF: 0 sucralfate [Carafate] 100 mg/mL suspension 10 ml PO QID Qty: 420 RF: 0 famotidine 20 mg tablet 20 mg PO BID Qty: 20 RF: 0 Discontinued nitrofurantoin monohyd/m-cryst [Macrobid] 100 mg capsule 100 mg PO BID 7 Days Qty: 14 RF: 0 Discharge Orders: Discharge Order (Routine); Ordered 12/15/19 Ordered By: Kourtney Hauser Admission Data Admit Date/Time: 12/13/19 00:15 Attending Provider: Kourtney Hauser Admit Provider: Alexis Guardado Primary Care Provider: Rajwinder Carter Other Providers: Alexis Guardado ; Silvia Motley Other Interventions: Discharge Summary Assessment (RN) Last Done: 12/15/19 13:19 DC Date/Time DO NOT enter until pt leaves facility: 12/15/19 13:45
== END 2019-12-15 13:45 | disposition home or self-care (01) ==
LOC: ED 21:13 → 2W 12-13 00:15 → INTOOBSV 12-13 00:15 → 2W 12-13 01:07

== ENCOUNTER 2019-12-23 15:30 | Observation (INO) ==
--- NOTE | 2019-12-23 16:20 | Emergency Department Note ---
History of Present Illness General Chief complaint: Sore Throat Stated complaint: SORSARAH BETHROATGINNAID TESTING Time Seen by Provider: 12/23/19 15:52 Source: patient Mode of arrival: EMS Limitations: other (poor historian) History of Present Illness Provider complaint: "I do not feel good" Onset (ago): hour(s) 8 Location: chest and abdomen Radiation: non-radiation Severity: moderate Pain Consistency: + constant Maximum Pain Intensity: 10 Quality: + constant Exacerbated By: + movement Associated symptoms: + chest pain, + cough and + malaise; no fever/chills Treatments prior to arrival: none This is a 64-year-old female with a complicated past medical history who is well-known to the emergency room as she is here frequently who states that her family doctor recommended she come in due to atypical lung sounds and "appearing juarez". Patient states she was in the hospital 2 weeks ago with influenza. She states she was discharged on antibiotics which she just finished last night. Patient states when she woke up she did not feel well and so she called her doctor and wanted to be seen. She states her doctor told her that she heard fluid in her left lung. Patient states she has had pneumonia previously. Patient states she has had intermittent chest pain which she felt was related to her recent illness. She states this morning the pain felt more like it was in her upper abdomen. Patient does acknowledge that she has a history of GERD and stomach problems. Patient states she is also has had headaches intermittently, although states she does get these chronically. Patient states she has swelling in her legs, however states this is a chronic finding and typically related to being in her wheelchair and her legs hanging down. Patient does not feel they are worse compared to prior episodes. Patient states she has a history of anemia and is recently needed blood transfusions. She states she has been told that she was "bleeding in her bowels" however they cannot find where. Patient i s a difficult historian. Pt seen during a time of high acuity and national emergency pandemic while wearing PPE. Home Medications Home Medications Medication Instructions Recorded Confirmed Type Lantus Solostar U-100 Insulin 24 unit SUBCUT HS 06/16/18 12/23/19 History ascorbic acid (vitamin C) [Vitamin 500 mg PO QAM 06/16/18 12/23/19 History C] aspirin [Aspir-81] 81 mg PO QAM 06/16/18 12/23/19 History cyclobenzaprine 10 mg PO HS 06/16/18 12/23/19 History dulaglutide 1.5 mg SUBCUT MO 06/16/18 12/23/19 History furosemide [Lasix] 20 mg PO QAM 06/16/18 12/23/19 History gabapentin See Rx Instructions .ROUTE .COMPLEX 06/16/18 12/23/19 History potassium chloride 10 meq PO QAM 06/16/18 12/23/19 History trazodone 50 mg PO HS 06/16/18 12/23/19 History Centrum Silver 1 tab PO QAM 07/19/18 12/23/19 History escitalopram oxalate 20 mg PO QAM 07/19/18 12/23/19 History fluticasone propionate [Flonase 2 spray INTRANASAL QAM 07/19/18 12/23/19 History Allergy Relief] ferrous sulfate 325 mg PO QAM 02/21/19 12/23/19 History tamsulosin 0.4 mg capsule 0.4 mg PO QAM #30 cap 06/26/19 12/23/19 History albuterol sulfate 2 puff INHALATION Q4H PRN 09/09/19 12/23/19 History atorvastatin 40 mg PO HS 09/09/19 12/23/19 History nadolol 40 mg PO QAM 09/09/19 12/23/19 History oxybutynin chloride 5 mg PO BID 09/09/19 12/23/19 History pantoprazole 40 mg PO QAM 09/09/19 12/23/19 History nystatin 1 applic TOPICAL TID 11/20/19 12/23/19 History albuterol sulfate 2.5 mg INHALATION Q6H PRN 11/28/19 12/23/19 History semaglutide 1 mg SUBCUT WK 11/28/19 12/23/19 History famotidine 20 mg PO BID #20 tab 11/29/19 12/23/19 Rx sucralfate [Carafate] 10 ml PO QID #420 ml 11/29/19 12/23/19 Rx Lactinex 1 tab PO TID #30 tab 12/15/19 12/23/19 Rx levothyroxine [Synthroid] 200 mcg PO DAILYBB 30 Days #30 tab 12/25/19 Rx magnesium oxide 400 mg PO QAM 10 Days #10 tab 12/25/19 Rx Allergies Allergy/AdvReac Type Severity Reaction Status Date / Time Penicillins Allergy Intermediate Hives Verified 12/23/19 16:49 Past Med/Surg History Medical History Acute cystitis Ambulatory dysfunction Ambulatory dysfunction (Acute) Anxiety Asthma (Chronic) DOES NOT USE INH. REPORTS USING NEB TREATMENTS BID. Bilateral lower extremity edema (Chronic) Cardiac murmur Cerebral palsy (Chronic) Chest pain (Acute) Chronic back pain Chronic pain (Chronic) Complicated UTI (urinary tract infection) Contusion of knee, right (Acute) Contusion of leg (Acute) Cough CHRONIC PER PT REPORT Depression DM type 2 (diabetes mellitus, type 2) (Chronic) IDDM Dyslipidemia (Chronic) Encounter for pre-operative examination Fall (Acute) Fibromyalgia (Chronic) VIDA (generalized anxiety disorder) (Chronic) GERD (gastroesophageal reflux disease) History of kidney stones History of migraine (Chronic) Hoarseness of voice CHRONIC PER PT REPORT Hypertension Hypothyroidism (Chronic) Major depressive disorder, recurrent, moderate (Chronic) NG (nonalcoholic steatohepatitis) (Chronic) Obesity (BMI 30-39.9) Obesity, morbid (more than 100 lbs over ideal weight or BMI > 40) (Chronic) Obstructive sleep apnea (Chronic) CPAP + OXYGEN AT 2 LPM @ NIGHT On home oxygen therapy 2 LPM @ NIGHT + CPAP Osteoarthritis (Chronic) Pancreatic cyst Pleurisy (Acute) Poor historian Right ankle sprain (Acute) Right knee sprain (Acute) SOB (shortness of breath) on exertion Urinary catheter dysfunction (Acute) Venous insufficiency (Chronic) VRE (vancomycin resistant enterococcus) culture positive (Acute) Surgical History H/O Achilles tendon repair (Chronic) H/O section (Chronic) H/O wisdom tooth extraction (Chronic) History of Achilles tendon repair History of section History of colonoscopy History of D&C (Chronic) History of dilatation and curettage History of esophagogastroduodenoscopy (EGD) History of tooth extraction Family History Father Family history of diabetes mellitus Other No pertinent family history Social History Preferred Language: Dutch Communication Ability: Effective Rolfer Required: No Beliefs That Will Affect Care: None marital status: Current Living Situation: Spouse and Family Current Living Situation Comment: Lives with , Sister and grandson Other Information That Helps Us Care for You: No Feels Safe at Home: Yes Safety Concerns: Feels Safe At This Time Smoking Status: Never smoker Second Hand Exposure: Yes (PREVIOUS EXPOSURE) ; Hx Alcohol Use: No Hx Substance Use: No Review of Systems See HPI for pertinent positives & negatives. and A total of 10 systems reviewed and were otherwise negative Physical Exam Vital Signs Vital Signs - 24 hr 12/23/19 15:44 12/23/19 16:39 12/23/19 16:50 Temperature 37.1 C Temperature Source Oral Pulse Rate 73 66 Pulse Rate [Right Finger] 66 Pulse Rhythm Regular Pulse Strength Normal Respiratory Rate 20 12 20 Respiratory Effort / Characteristics Non-Labored Spontaneous Non-Labored Spontaneous Respiratory Depth Normal Normal Respiratory Pattern Regular Blood Pressure 177/90 H 119/73 Blood Pressure [Right Arm] 119/73 Blood Pressure Mean 119 85 Blood Pressure Mean [Right Arm] 88 Blood Pressure Position Sitting Blood Pressure Position [Right Arm] Lying Pulse Oximetry 93 95 Oxygen Delivery Method Room Air Room Air Sepsis Recent Fever Within 48 Hours No Sepsis Action Taken by Nursing No Action Required 12/23/19 16:59 12/23/19 17:00 12/23/19 18:30 Temperature Temperature Source Pulse Rate 67 67 63 Pulse Rate [Right Finger] Pulse Rhythm Pulse Strength Respiratory Rate 19 14 14 Respiratory Effort / Characteristics Respiratory Depth Respiratory Pattern Blood Pressure 119/73 Blood Pressure [Right Arm] Blood Pressure Mean 88 Blood Pressure Mean [Right Arm] Blood Pressure Position Blood Pressure Position [Right Arm] Pulse Oximetry Oxygen Delivery Method Sepsis Recent Fever Within 48 Hours Sepsis Action Taken by Nursing 12/23/19 18:35 Temperature Temperature Source Pulse Rate 65 Pulse Rate [Right Finger] Pulse Rhythm Pulse Strength Respiratory Rate 16 Respiratory Effort / Characteristics Respiratory Depth Respiratory Pattern Blood Pressure 112/84 Blood Pressure [Right Arm] Blood Pressure Mean 91 Blood Pressure Mean [Right Arm] Blood Pressure Position Blood Pressure Position [Right Arm] Pulse Oximetry Oxygen Delivery Method Sepsis Recent Fever Within 48 Hours Sepsis Action Taken by Nursing GENERAL: alert, well appearing, well nourished, no distress, non-toxic, obese EYE EXAM: normal conjunctiva, PERRL and EOM's grossly intact OROPHARYNX: no exudate, no erythema, lips, buccal mucosa, and tongue normal and mucous membranes are moist NECK: supple, no nuchal rigidity, no adenopathy, non-tender LUNGS: Clear to auscultation. Normal chest wall mechanics, no w/r/r HEART: no murmurs, S1 normal and S2 normal ABDOMEN: abdomen soft, non-tender, normo-active bowel sounds, no masses, no rebound or guarding. BACK: Back is symmetrical on inspection and there is no deformity, no midline tenderness, no CVA tenderness. SKIN: no rashes and no bruising UPPER EXTREMITIES: upper extremities are grossly normal. FROM, nml pulses b/l. LOWER EXTREMITIES: 1+ pitting edema. Decreased range of motion chronically secondary to pain and chronic lymphedema, nml pulses b/l. No overlying cellulitis. NEURO EXAM: Normal sensorium, cranial nerves II-XII grossly intact, normal speech, no gross weakness of arms, no gross weakness of legs. Gross sensation intact. Course Course 1899: Case discussed with [facility] hospitalist who has seen and admitted the patient previously to discuss her recent admission, discharge, and return visit to the emergency room. 1919: Updated patient on results. Patient states she is feeling no better and feels she cannot safely return home or follow-up with her PCP. 1934: Case discussed with hospitalist for additional inpatient evaluation and management. Administered Medications Discontinued Medications Ascorbic Acid (Vitamin C) 500 mg PO [facility] Stop: 01/23/20 08:59 Last Admin: 12/25/19 08:56 Dose: 500 mg Documented by: [id number] Admin: 12/24/19 08:11 Dose: 500 mg Documented by: [id number] Aspirin (Ecotrin Ectab) 81 mg PO [facility] Stop: 01/23/20 08:59 Last Admin: 12/25/19 08:56 Dose: 81 mg Documented by: [id number] Admin: 12/24/19 08:10 Dose: 81 mg Documented by: [id number] Atorvastatin Calcium (Lipitor) 40 mg PO [facility] Stop: 01/23/20 20:59 Last Admin: 12/24/19 20:47 Dose: 40 mg Documented by: [id number] Cyclobenzaprine HCl (Flexeril) 10 mg PO [facility] Stop: 01/23/20 20:59 Last Admin: 12/24/19 20:47 Dose: 10 mg Documented by: [id number] Escitalopram Oxalate (Lexapro Tab) 20 mg PO QAM [facility] Stop: 01/23/20 08:59 Last Admin: 12/25/19 08:57 Dose: 20 mg Documented by: [id number] Admin: 12/24/19 08:10 Dose: 20 mg Documented by: [id number] Famotidine (Pepcid) 20 mg PO BID [facility] Stop: 01/23/20 08:59 Last Admin: 12/25/19 08:57 Dose: 20 mg Documented by: [id number] Admin: 12/24/19 20:47 Dose: 20 mg Documented by: [id number] Admin: 12/24/19 08:10 Dose: 20 mg Documented by: [id number] Ferrous Sulfate (Feosol) 325 mg PO QAM [facility] Stop: 01/23/20 08:59 Last Admin: 12/25/19 08:57 Dose: 325 mg Documented by: [id number] Admin: 12/24/19 08:10 Dose: 325 mg Documented by: [id number] Fluticasone Propionate (Flonase) 2 sprays NA QAM [facility] Stop: 01/23/20 08:59 Last Admin: 12/25/19 08:58 Dose: 2 sprays Documented by: [id number] Admin: 12/24/19 08:11 Dose: 2 sprays Documented by: [id number] Gabapentin (Neurontin) 300 mg PO BID@0900,1400 [facility] Stop: 01/23/20 08:59 Last Admin: 12/25/19 08:56 Dose: 300 mg Documented by: [id number] Admin: 12/24/19 12:05 Dose: 300 mg Documented by: [id number] Admin: 12/24/19 08:10 Dose: 300 mg Documented by: [id number] Gabapentin (Neurontin) 600 mg PO HS [facility] Stop: 01/23/20 20:59 Last Admin: 12/24/19 20:47 Dose: 600 mg Documented by: [id number] Sodium Chloride (Nss 1000ml) 1,000 mls @ 125 mls/hr IV .Q8H [facility] Stop: 01/22/20 18:59 Last Infusion: 12/24/19 00:31 Dose: 0 mls/hr Documented by: [id number] Admin: 12/23/19 20:11 Dose: 125 mls/hr Documented by: [id number] Parenteral Electrolytes (Normosol-R) 500 mls @ 999 mls/hr IV .Q31M ONE Stop: 12/23/19 21:15 Last Infusion: 12/23/19 23:32 Dose: 0 mls/hr Documented by: [id number] Admin: 12/23/19 22:28 Dose: 999 mls/hr Documented by: [id number] Lactated Ringer's (Lr) 1,000 mls @ 100 mls/hr IV .Q10H [facility] Stop: 12/24/19 06:29 Last Infusion: 12/24/19 08:01 Dose: 0 mls/hr Documented by: [id number] Admin: 12/24/19 05:56 Dose: 150 mls/hr Documented by: [id number] Infusion: 12/24/19 05:56 Dose: 150 mls/hr Documented by: [id number] Admin: 12/23/19 23:35 Dose: 150 mls/hr Documented by: [id number] Insulin Aspart (Novolog Flexpen) 0 units SC ACHS [facility] Stop: 01/22/20 22:59 Last Admin: 12/25/19 09:05 Dose: 4 units Documented by: [id number] Cosigned by: [id number] Admin: 12/24/19 20:49 Dose: Not Given Documented by: [id number] Cosigned by: [id number] Admin: 12/24/19 17:02 Dose: 3 units Documented by: [id number] Cosigned by: [id number] Admin: 12/24/19 12:00 Dose: 2 units Documented by: [id number] Cosigned by: [id number] Admin: 12/24/19 08:07 Dose: Not Given Documented by: [id number] Cosigned by: [id number] Admin: 12/24/19 00:30 Dose: Not Given Documented by: [id number] Cosigned by: [id number] Insulin Glargine (Lantus Solostar Pen) 5 units SC NOW ONE Stop: 12/23/19 23:01 Last Admin: 12/23/19 23:45 Dose: 5 units Documented by: [id number] Cosigned by: [id number] Insulin Glargine (Lantus Solostar Pen) 5 units SC BID [facility] Stop: 01/23/20 08:59 Last Admin: 12/25/19 09:06 Dose: 5 units Documented by: [id number] Cosigned by: [id number] Admin: 12/24/19 20:48 Dose: 5 units Documented by: [id number] Cosigned by: [id number] Admin: 12/24/19 08:07 Dose: 5 units Documented by: [id number] Cosigned by: [id number] Lactobacillus Acidophilus (Floranex) 4 tab PO TIDM [facility] Stop: 01/23/20 07:59 Last Admin: 12/25/19 08:57 Dose: 4 tab Documented by: [id number] Admin: 12/24/19 17:12 Dose: 4 tab Documented by: [id number] Admin: 12/24/19 12:05 Dose: 4 tab Documented by: [id number] Admin: 12/24/19 08:10 Dose: 4 tab Documented by: [id number] Levothyroxine Sodium (Synthroid) 200 mcg PO DAILYBB [facility] Stop: 01/23/20 06:29 Last Admin: 12/25/19 05:47 Dose: 200 mcg Documented by: [id number] Admin: 12/24/19 05:57 Dose: 200 mcg Documented by: [id number] [facility]) [facility]: 01/24/20 08:59 Last Admin: 12/25/19 08:56 Dose: 400 mg Documented by: [id number] Miconazole Nitrate (Desenex) 1 appln EXT BID [facility] Stop: 01/23/20 08:59 Last Admin: 12/25/19 08:58 Dose: 1 appln Documented by: [id number] Admin: 12/24/19 20:46 Dose: 1 appln Documented by: [id number] Admin: 12/24/19 10:06 Dose: 1 appln Documented by: [id number] Nadolol (Corgard) [facility] [place] [facility]: 01/23/20 08:59 Last Admin: 12/25/19 08:56 Dose: 40 mg Documented by: [id number] Admin: 12/24/19 08:10 Dose: 40 mg Documented by: [id number] Oxybutynin Chloride (Ditropan) 5 mg PO BID [facility] Stop: 01/23/20 08:59 Last Admin: 12/25/19 08:57 Dose: 5 mg Documented by: [id number] Admin: 12/24/19 20:48 Dose: 5 mg Documented by: [id number] Admin: 12/24/19 08:10 Dose: 5 mg Documented by: [id number] Pantoprazole Sodium (Protonix) 40 mg PO QAM [facility] Stop: 01/23/20 08:59 Last Admin: 12/25/19 08:56 Dose: 40 mg Documented by: [id number] Admin: 12/24/19 08:11 Dose: 40 mg Documented by: [id number] Potassium Chloride (Klor-Con M20) 40 meq PO NOW ONE Stop: 12/25/19 08:16 Last Admin: 12/25/19 08:56 Dose: 40 meq Documented by: [id number] Sucralfate (Carafate) 1 gm PO ACHS [facility] Stop: 01/23/20 07:29 Last Admin: 12/25/19 08:57 Dose: 1 gm Documented by: [id number] Admin: 12/24/19 20:46 Dose: 1 gm Documented by: [id number] Admin: 12/24/19 17:03 Dose: 1 gm Documented by: [id number] Admin: 12/24/19 12:01 Dose: 1 gm Documented by: [id number] Admin: 12/24/19 08:10 Dose: 1 gm Documented by: [id number] Tamsulosin HCl (Flomax) 0.4 mg PO QAM [facility] Stop: 01/23/20 08:59 Last Admin: 12/25/19 08:57 Dose: 0.4 mg Documented by: [id number] Admin: 12/24/19 08:10 Dose: 0.4 mg Documented by: [id number] Tramadol HCl (Ultram) 25 - 50 mg PO Q4H PRN PRN Reason: Pain Stop: 01/22/20 22:14 Last Admin: 12/24/19 12:05 Dose: 50 mg Documented by: [id number] Trazodone HCl (Desyrel) 50 mg PO HS [facility] Stop: 01/23/20 20:59 Last Admin: 12/24/19 20:47 Dose: 50 mg Documented by: [id number] Medical Decision Making Differential Diagnosis Differential diagnoses includes but is not limited to pneumonia, bronchitis, COPD/Asthma exacerbation, pneumothorax, pulmonary embolism, congestive heart failure, acute coronary syndrome Medical Records Attestation: I reviewed the patient's medical records. Home Medications Current Medication List: was personally reviewed by me Laboratory Data Attestation: I reviewed the patient's lab results. Result diagrams: 12/25/19 05:42 12/25/19 05:42 Lab Results 12/23/19 12/23/19 12/23/19 Range/Units 16:25 16:25 17:30 WBC 3.57 L (4.8-10.8) K/uL RBC 2.89 L (4.2-5.4) M/uL Hgb 8.8 L (12.0-16.0) g/dL Hct 29.6 L (37-47) % MCV 102.4 H (80-100) fL MCH 30.4 (25-34) pg MCHC 29.7 L (32-36) g/dL RDW Std Deviation 82.4 H (36.4-46.3) fL RDW Coeff of Bradley 22.1 H (11.5-14.5) % Plt Count 127 L (130-400) K/uL MPV 12.8 H (7.4-10.4) fL Immature Gran % (Auto) 0.3 % Neut % (Auto) 61.3 % Lymph % (Auto) 25.2 % [place] % (Auto) 6.2 % Eos % (Auto) 6.2 % Baso % (Auto) 0.8 % Immature Gran # (Auto) 0.01 (0.00-0.02) K/uL Neut # (Auto) 2.19 (1.4-6.5) K/uL Lymph # (Auto) 0.90 L (1.2-3.4) K/uL [place] # (Auto) 0.22 (0.11-0.59) K/uL Eos # (Auto) 0.22 (0-0.5) K/uL Baso # (Auto) 0.03 (0-0.2) K/uL Polychromasia 1+ Anisocytosis Present Ovalocytes 1+ Sodium (136-145) mmol/L Potassium (3.5-5.1) mmol/L Chloride (98-107) mmol/L Carbon Dioxide (21-32) mmol/L Anion Gap (3-11) BUN (7-18) mg/dl Creatinine (0.6-1.2) mg/dl Est Cr Clr Drug Dosing ml/min Est GFR ( Amer) Est GFR (Non-Af Amer) BUN/Creatinine Ratio (10-20) Glucose (70-99) mg/dl Lactate (0.4-2.0) mmol/L Calcium (8.5-10.1) mg/dl Magnesium (1.8-2.4) mg/dl Total Bilirubin (0.2-1) mg/dl AST (15-37) U/L ALT (12-78) U/L Alkaline Phosphatase (45-117) U/L Troponin I (0-0.045) ng/ml NT-Pro-B Natriuret Pep (0-900) pg/ml Total Protein (6.4-8.2) gm/dl Albumin (3.4-5.0) gm/dl Globulin (2.5-4.0) gm/dl Albumin/Globulin Ratio (0.9-2) Lipase (73-393) U/L Procalcitonin (0-0.5) ng/ml TSH (0.300-4.500) uIu/ml Free T4 (0.8-1.6) ng/dl Urine Color Urine Appearance (Clear) Urine pH (4.5-7.5) Ur Specific [place] (1.000-1.030) Urine Protein (Negative) Urine Glucose (UA) (Negative) Urine Ketones (Negative) Urine Blood (Negative) Urine Nitrite (Negative) Urine Bilirubin (Negative) Urine Urobilinogen (Negative) Ur Leukocyte Esterase (Negative) Urine WBC (Auto) (0-5) /hpf Urine RBC (Auto) (0-4) /hpf U Hyaline Cast (Auto) (0-5) /lpf U Epithel Cells (Auto) (0-5) /lpf Urine Bacteria (Auto) (Negative) Influenza Type A (PCR) Neg for Influ A (Neg) Influenza Type B (PCR) Neg for Influ B (Neg) SARS-CoV-2 RNA (RT-PCR) NOT DETECTED (NOT DETECTED) 12/23/19 12/23/19 12/23/19 Range/Units 17:30 17:30 17:30 WBC (4.8-10.8) K/uL RBC (4.2-5.4) M/uL Hgb (12.0-16.0) g/dL Hct (37-47) % MCV (80-100) fL MCH (25-34) pg MCHC (32-36) g/dL RDW Std Deviation (36.4-46.3) fL RDW Coeff of Bradley (11.5-14.5) % Plt Count (130-400) K/uL MPV (7.4-10.4) fL Immature Gran % (Auto) % Neut % (Auto) % Lymph % (Auto) % [place] % (Auto) % Eos % (Auto) % Baso % (Auto) % Immature Gran # (Auto) (0.00-0.02) K/uL Neut # (Auto) (1.4-6.5) K/uL Lymph # (Auto) (1.2-3.4) K/uL [place] # (Auto) (0.11-0.59) K/uL Eos # (Auto) (0-0.5) K/uL Baso # (Auto) (0-0.2) K/uL Polychromasia Anisocytosis Ovalocytes Sodium 142 (136-145) mmol/L Potassium 3.9 (3.5-5.1) mmol/L Chloride 107 (98-107) mmol/L Carbon Dioxide 29 (21-32) mmol/L Anion Gap 5.0 (3-11) BUN 7 (7-18) mg/dl Creatinine 0.67 (0.6-1.2) mg/dl Est Cr Clr Drug Dosing 104.3 ml/min Est GFR ( Amer) 107.7 Est GFR (Non-Af Amer) 92.9 BUN/Creatinine Ratio 10.5 (10-20) Glucose 145 H (70-99) mg/dl Lactate (0.4-2.0) mmol/L Calcium 8.9 (8.5-10.1) mg/dl Magnesium 1.8 (1.8-2.4) mg/dl Total Bilirubin 0.5 (0.2-1) mg/dl AST 34 (15-37) U/L ALT 27 (12-78) U/L Alkaline Phosphatase 113 (45-117) U/L Troponin I < 0.015 (0-0.045) ng/ml NT-Pro-B Natriuret Pep 52 (0-900) pg/ml Total Protein 6.7 (6.4-8.2) gm/dl Albumin 3.0 L (3.4-5.0) gm/dl Globulin 3.7 (2.5-4.0) gm/dl Albumin/Globulin Ratio 0.8 L (0.9-2) Lipase 60 L (73-393) U/L Procalcitonin 0.06 (0-0.5) ng/ml TSH 37.700 H (0.300-4.500) uIu/ml Free T4 0.85 (0.8-1.6) ng/dl Urine Color Urine Appearance (Clear) Urine pH (4.5-7.5) Ur Specific [place] (1.000-1.030) Urine Protein (Negative) Urine Glucose (UA) (Negative) Urine Ketones (Negative) Urine Blood (Negative) Urine Nitrite (Negative) Urine Bilirubin (Negative) Urine Urobilinogen (Negative) Ur Leukocyte Esterase (Negative) Urine WBC (Auto) (0-5) /hpf Urine RBC (Auto) (0-4) /hpf U Hyaline Cast (Auto) (0-5) /lpf U Epithel Cells (Auto) (0-5) /lpf Urine Bacteria (Auto) (Negative) Influenza Type A (PCR) (Neg) Influenza Type B (PCR) (Neg) SARS-CoV-2 RNA (RT-PCR) (NOT DETECTED) 12/23/19 12/23/19 12/23/19 Range/Units 17:55 19:55 20:05 WBC (4.8-10.8) K/uL RBC (4.2-5.4) M/uL Hgb (12.0-16.0) g/dL Hct (37-47) % MCV (80-100) fL MCH (25-34) pg MCHC (32-36) g/dL RDW Std Deviation (36.4-46.3) fL RDW Coeff of Bradley (11.5-14.5) % Plt Count (130-400) K/uL MPV (7.4-10.4) fL Immature Gran % (Auto) % Neut % (Auto) % Lymph % (Auto) % [place] % (Auto) % Eos % (Auto) % Baso % (Auto) % Immature Gran # (Auto) (0.00-0.02) K/uL Neut # (Auto) (1.4-6.5) K/uL Lymph # (Auto) (1.2-3.4) K/uL [place] # (Auto) (0.11-0.59) K/uL Eos # (Auto) (0-0.5) K/uL Baso # (Auto) (0-0.2) K/uL Polychromasia Anisocytosis Ovalocytes Sodium (136-145) mmol/L Potassium (3.5-5.1) mmol/L Chloride (98-107) mmol/L Carbon Dioxide (21-32) mmol/L Anion Gap (3-11) BUN (7-18) mg/dl Creatinine (0.6-1.2) mg/dl Est Cr Clr Drug Dosing ml/min Est GFR ( Amer) Est GFR (Non-Af Amer) BUN/Creatinine Ratio (10-20) Glucose (70-99) mg/dl Lactate 3.5 H* 3.0 H* (0.4-2.0) mmol/L Calcium (8.5-10.1) mg/dl Magnesium (1.8-2.4) mg/dl Total Bilirubin (0.2-1) mg/dl AST (15-37) U/L ALT (12-78) U/L Alkaline Phosphatase (45-117) U/L Troponin I (0-0.045) ng/ml NT-Pro-B Natriuret Pep (0-900) pg/ml Total Protein (6.4-8.2) gm/dl Albumin (3.4-5.0) gm/dl Globulin (2.5-4.0) gm/dl Albumin/Globulin Ratio (0.9-2) Lipase (73-393) U/L Procalcitonin (0-0.5) ng/ml TSH (0.300-4.500) uIu/ml Free T4 (0.8-1.6) ng/dl Urine Color Yellow Urine Appearance Clear (Clear) Urine pH 6.5 (4.5-7.5) Ur Specific [place] 1.015 (1.000-1.030) Urine Protein Negative (Negative) Urine Glucose (UA) Negative (Negative) Urine Ketones Negative (Negative) Urine Blood Negative (Negative) Urine Nitrite Negative (Negative) Urine Bilirubin Negative (Negative) Urine Urobilinogen Negative (Negative) Ur Leukocyte Esterase Trace H (Negative) Urine WBC (Auto) 1-5 (0-5) /hpf Urine RBC (Auto) 0-4 (0-4) /hpf U Hyaline Cast (Auto) 1-5 (0-5) /lpf U Epithel Cells (Auto) 10-20 H (0-5) /lpf Urine Bacteria (Auto) Negative (Negative) Influenza Type A (PCR) (Neg) Influenza Type B (PCR) (Neg) SARS-CoV-2 RNA (RT-PCR) (NOT DETECTED) Imaging Data Radiologist's Impression: XR chest 1V portable CLINICAL HISTORY: cough, recent pneumonia dyspnea COMPARISON STUDY: 12/15/2019 FINDINGS: Mild stable cardiomegaly. Lungs are considered clear. Diaphragms are smooth. Chronic hilar fullness bilaterally. IMPRESSION: Chronic change. No acute process. The lungs are clear. ACT 112: Negative or not required by law. The above report was generated using voice recognition software. It may contain grammatical, syntax or spelling errors. Electronically signed by: Carter Robison M.D. 12/23/2019 6:04 PM ECG Data Attestation: I personally reviewed and interpreted this ECG as follows: Indication: + chest pain Rate (beats per minute): 67 Rhythm: + normal sinus ECG Intervals/blocks: + First degree AV block, + Normal QRS and + Normal QT ECG [place]: + Normal ECG ST segments: + Nonspecific ST abnormalities Additional Comments: low voltage throughout Blood Pressure Blood Pressure Findings: Elevated blood pressure Blood Pressure Disposition: further management by hospitalist MDM Narrative An order was placed for continuous cardiac monitoring. The monitor shows a rate of 80 with normal sinus rhythm. Patient evaluated here in the emergency room. Patient well-known to the [facility] department as she is here frequently and has a long and complicated past medical history. Patient did have a recent hospitalization for a pneumonia. I did review the EMR including her hospital stay as well as discharge. Patient did then take a course of Levaquin for 1 week following discharge and just finished this yesterday. Patient does have a history of lactic acidemia although her level tonight seems higher than her previously recorded baseline and more in line with those that were measured during her hospitalization for pneumonia. There is no evidence of new or evolving pulmonary infection on her chest x-ray. Patient's other labs are reassuring and seem at baseline despite t heir abnormalities. Patient continues to complain of not feeling well. It is unclear if this is related to her elevated lactic acid level. Given patient does not feel safe going home, and feels her symptoms are worsening, case was discussed with hospitalist. Blood and urine cultures were sent. At the time my discussion with the hospitalist, a cath UA was still pending. A COVID-19 swab was sent on the patient as a precaution. Patient's procalcitonin was negative. Impression & Plan Generalized weakness, Lactic acidemia, Hypothyroidism, Bilateral lower extremity edema, Obesity, morbid (more than 100 lbs over ideal weight or BMI > 40), Pancytopenia Discharge Plan Visit Data *Final* Discharge Date/Time: 12/23/19 21:37 Chief Complaint: Sore Throat Stated Complaint: SORETHROAT, COVID TESTING ED Provider: Liz Gallego Discharge Problem: Generalized weakness, Lactic acidemia, Hypothyroidism, Bilateral lower extremity edema, Obesity, morbid (more than 100 lbs over ideal weight or BMI > 40), Pancytopenia Patient Disposition: Admitted As Inpatient Condition: Good Discharge Instructions Interventions: ED Discharge Assessment Last Done: 12/23/19 21:37 Discharge Problem: Hypothyroidism Qualifiers: Hypothyroidism type: unspecified Qualified Code(s): E03.9 - Hypothyroidism, unspecified
[2019-12-23 17:45] LABS: Influenza A virus by PCR Neg for Influ A (Neg); Influenza B virus by PCR Neg for Influ B (Neg)
--- NOTE | 2019-12-23 18:06 | XRay Report ---
XR chest 1V portable CLINICAL HISTORY: cough, recent pneumonia dyspnea COMPARISON STUDY: 12/15/2019 FINDINGS: Mild stable cardiomegaly. Lungs are considered clear. Diaphragms are smooth. Chronic hilar fullness bilaterally. IMPRESSION: Chronic change. No acute process. The lungs are clear. ACT 112: Negative or not required by law. The above report was generated using voice recognition software. It may contain grammatical, syntax or spelling errors. Electronically signed by: Carter Robison M.D. 12/23/2019 6:04 PM
[2019-12-23 18:09] LABS: Alanine Aminotransferase 27 U/L (12-78); Aspartate Aminotransferase 34 U/L (15-37); BUN Creatinine Ratio 10.5 (10-20); Blood Urea Nitrogen 7 mg/dl (7-18); Calcium 8.9 mg/dl (8.5-10.1); Carbon Dioxide 29 mmol/L (21-32); Chloride 107 mmol/L (98-107); Creatinine Clr Calc Pharmacy 104.3 ml/min; Est GFR (African American) 107.7; Est GFR (Non-African American) 92.9; Glucose 145 mg/dl (70-99); Lipase 60 U/L (73-393); Magnesium 1.8 mg/dl (1.8-2.4); Potassium 3.9 mmol/L (3.5-5.1); Sodium 142 mmol/L (136-145)
[2019-12-23 18:14] LABS: Albumin Globulin Ratio 0.8 (0.9-2); Alkaline Phosphatase 113 U/L (45-117); Bilirubin,Total 0.5 mg/dl (0.2-1); Globulin 3.7 gm/dl (2.5-4.0); NT Pro B Type Natriuretic Pept 52 pg/ml (0-900); Total Protein 6.7 gm/dl (6.4-8.2); Troponin I < 0.015 ng/ml (0-0.045)
[2019-12-23 18:33] LABS: Hematocrit (blood only) 29.6 % (37-47); Hemoglobin 8.8 g/dL (12.0-16.0); Mean Corpuscular Hemoglobin 30.4 pg (25-34); Mean Corpuscular Hgb Conc 29.7 g/dL (32-36); Mean Corpuscular Volume 102.4 fL (80-100); Mean Platelet Volume 12.8 fL (7.4-10.4); Platelet Count 127 K/uL (130-400); RDW Coefficient of Variation 22.1 % (11.5-14.5); RDW Standard Deviation 82.4 fL (36.4-46.3); Red Blood Count 2.89 M/uL (4.2-5.4); White Blood Count 3.57 K/uL (4.8-10.8)
[2019-12-23 18:53] LABS: Anisocytosis Present; Basophils # (auto) 0.03 K/uL (0-0.2); Basophils % (auto) 0.8 %; Eosinophils # (auto) 0.22 K/uL (0-0.5); Eosinophils % (auto) 6.2 %; Immature Granulocytes # (auto) 0.01 K/uL (0.00-0.02); Immature Granulocytes % (auto) 0.3 %; Lymphocytes % (auto) 25.2 %; Monocytes # (auto) 0.22 K/uL (0.11-0.59); Monocytes % (auto) 6.2 %; Neutrophils # (auto) 2.19 K/uL (1.4-6.5); Neutrophils % (auto) 61.3 %; Ovalocytes 1+; Polychromasia 1+
[2019-12-23] MEDS ORDERED: SODIUM CHLORIDE 0.9% 1000ML 1,000 ML IV SCH (19:00)
[2019-12-23 20:20] LABS: Appearance Urine Clear (Clear); Bacteria Urine Automated Negative (Negative); Bilirubin Urine Negative (Negative); Blood Urine Negative (Negative); Color Urine Yellow; Glucose Urine UA Negative (Negative); Ketones Urine Negative (Negative); Leukocyte Esterase Urine Trace (Negative); Nitrite Urine Negative (Negative); Protein Urine Negative (Negative); RBC Urine Automated 0-4 /hpf (0-4); Specific Gravity Urine 1.015 (1.000-1.030); Urobilinogen Urine Negative (Negative); pH Urine 6.5 (4.5-7.5)
[2019-12-23] MEDS ORDERED: NORMOSOL-R 500 ML IV ONE (20:45)
[2019-12-23 20:49] LABS: Thyroid Stimulating Hormone 37.7 uIu/ml (0.300-4.500)
[2019-12-23 21:02] LABS: T4 Free Thyroxine 0.85 ng/dl (0.8-1.6)
--- NOTE | 2019-12-23 21:03 | History & Physical Report ---
Date of Service December 23, 2019 Assessment & Plan (1) Malaise: Recent confinement for pneumonia status post Levaquin Rx Possible viral illness rule out COVID-19 ? Suboptimal tx of hypothyroidism given markedly elevated TSH Lactic acidosis secondary to illness restrictive lung disease as per records, lung status at baseline mood disorder, fibromyalgia, at baseline hypertension, BP on the lower side NAFLD cirrhosis, no overt decompensation DM2 insulin requiring, well-controlled as of recent hemoglobin A1c of 6.12 December 2019 chronic pancytopenia secondary to cirrhosis, hemoglobin at baseline cerebral palsy as per records, ? Deconditioning OBS GMF Supportive management of viral illness until COVID-19 results back Isolation precautions until COVID-19 results back IVF, follow lactic acid Increase maintenance levothyroxine dose from 150 mcg to 200 mcg daily and recheck TSH next month Basal insulin, ISS BG goal [id number], carb count coverage PT OT eval DVT prophylaxis. SCDs RE thrombocytopenia Full code Text document was generated using [employer] voice recognition software. It may contain grammatical or spelling errors. Kindly contact undersigned for clarification of any documentation item in question. History of Present Illness Chief Complaint: Not feeling well Primary Care Provider: Rajwinder Carter DO History obtained from the patient and records. Medical history significant for restrictive lung disease as per records, mood disorder, fibromyalgia, hypertension, hyperlipidemia, NAFLD cirrhosis, THAD on CPAP, DM2 insulin requiring chronic pancytopenia (baseline hemoglobin 8-9), cerebral palsy as per records, hypothyroidism Recent confinement last week for right middle lobe pneumonia. Patient di scharged on Levaquin course. Patient has not felt well since leaving the hospital. Junky cough now dry. No unusual shortness of breath. No chest pain. No abdominal pain. No diarrhea. Denies dysuria. Appetite not so good. Patient seen at PCPs office and subsequently directed to the ER for further evaluation. MEDICAL HISTORY: As above. SURGICAL HISTORY: She has had dental surgery, gynecologic section, hip surgery, and tendon repair. FAMILY HISTORY: Heart disease. Diabetes PERSONAL AND SOCIAL HISTORY: Nonsmoker. No chronic intake of alcoholic beverages, disabled. Allergies Allergy/AdvReac Type Severity Reaction Status Date / Time Penicillins Allergy Intermediate Hives Verified 12/23/19 16:49 Home Medications Home Medications Medication Instructions Recorded Confirmed Type Lantus Solostar U-100 Insulin 24 unit SUBCUT HS 06/16/18 12/23/19 History ascorbic acid (vitamin C) [Vitamin 500 mg PO QAM 06/16/18 12/23/19 History C] aspirin [Aspir-81] 81 mg PO QAM 06/16/18 12/23/19 History cyclobenzaprine 10 mg PO HS 06/16/18 12/23/19 History dulaglutide 1.5 mg SUBCUT MO 06/16/18 12/23/19 History furosemide [Lasix] 20 mg PO QAM 06/16/18 12/23/19 History gabapentin See Rx Instructions .ROUTE .COMPLEX 06/16/18 12/23/19 History levothyroxine 150 mcg PO DAILYBB 06/16/18 12/23/19 History metformin 1,000 mg PO BIDM 06/16/18 12/23/19 History potassium chloride 10 meq PO QAM 06/16/18 12/23/19 History trazodone 50 mg PO HS 06/16/18 12/23/19 History Centrum Silver 1 tab PO QAM 07/19/18 12/23/19 History escitalopram oxalate 20 mg PO QAM 07/19/18 12/23/19 History fluticasone propionate [Flonase 2 spray INTRANASAL QAM 07/19/18 12/23/19 History Allergy Relief] ferrous sulfate 325 mg PO QAM 02/21/19 12/23/19 History tamsulosin 0.4 mg capsule 0.4 mg PO QAM #30 cap 06/26/19 12/23/19 History albuterol sulfate 2 puff INHALATION Q4H PRN 09/09/19 12/23/19 History atorvastatin 40 mg PO HS 09/09/19 12/23/19 History nadolol 40 mg PO QAM 09/09/19 12/23/19 History oxybutynin chloride 5 mg PO BID 09/09/19 12/23/19 History pantoprazole 40 mg PO QAM 09/09/19 12/23/19 History nystatin 1 applic TOPICAL TID 11/20/19 12/23/19 History albuterol sulfate 2.5 mg INHALATION Q6H PRN 11/28/19 12/23/19 History semaglutide 1 mg SUBCUT WK 11/28/19 12/23/19 History famotidine 20 mg PO BID #20 tab 11/29/19 12/23/19 Rx sucralfate [Carafate] 10 ml PO QID #420 ml 11/29/19 12/23/19 Rx Lactobacillus acidoph-L.bulgar 1 tab PO TID #30 tab 12/15/19 12/23/19 Rx [Lactinex] Past Med/Surg History Medical History Acute cystitis Ambulatory dysfunction Ambulatory dysfunction (Acute) Anxiety Asthma (Chronic) DOES NOT USE INH. REPORTS USING NEB TREATMENTS BID. Bilateral lower extremity edema (Chronic) Cardiac murmur Cerebral palsy (Chronic) Chest pain (Acute) Chronic back pain Chronic pain (Chronic) Complicated UTI (urinary tract infection) Contusion of knee, right (Acute) Contusion of leg (Acute) Cough CHRONIC PER PT REPORT Depression DM type 2 (diabetes mellitus, type 2) (Chronic) IDDM Dyslipidemia (Chronic) Encounter for pre-operative examination Fall (Acute) Fibromyalgia (Chronic) VIDA (generalized anxiety disorder) (Chronic) GERD (gastroesophageal reflux disease) History of kidney stones History of migraine (Chronic) Hoarseness of voice CHRONIC PER PT REPORT Hypertension Hypothyroidism (Chronic) Major depressive disorder, recurrent, moderate (Chronic) NG (nonalcoholic steatohepatitis) (Chronic) Obesity (BMI 30-39.9) Obesity, morbid (more than 100 lbs over ideal weight or BMI > 40) (Chronic) Obstructive sleep apnea (Chronic) CPAP + OXYGEN AT 2 LPM @ NIGHT On home oxygen therapy 2 LPM @ NIGHT + CPAP Osteoarthritis (Chronic) Pancreatic cyst Pleurisy (Acute) Poor historian Right ankle sprain (Acute) Right knee sprain (Acute) SOB (shortness of breath) on exertion Urinary catheter dysfunction (Acute) Venous insufficiency (Chronic) VRE (vancomycin resistant enterococcus) culture positive (Acute) Surgical History H/O Achilles tendon repair (Chronic) H/O section (Chronic) H/O wisdom tooth extraction (Chronic) History of Achilles tendon repair History of section History of colonoscopy History of D&C (Chronic) History of dilatation and curettage History of esophagogastroduodenoscopy (EGD) History of tooth extraction Family History Father Family history of diabetes mellitus Other No pertinent family history Social History Preferred Language: Chilean Communication Ability: Effective 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: No Beliefs That Will Affect Care: None marital status: Current Living Situation: Spouse and Family Current Living Situation Comment: Lives with , Sister and grandson Other Information That Helps Us Care for You: No Feels Safe at Home: Yes Safety Concerns: Feels Safe At This Time Smoking Status: Never smoker Second Hand Exposure: Yes (PREVIOUS EXPOSURE) ; Hx Alcohol Use: No Hx Substance Use: No Review of Systems Review of Systems: As per HPI, all 10 systems reviewed, all other ROS negative Physical Exam Physical Exam: GENERAL: Comfortable, slightly anxious, obese, no respiratory distress SKIN: Pallor warm HEENT: Pale palpebral conjunctivae, no ptosis, dry buccal mucosa NECK : Supple, short neck, no tenderness CHEST : Decreased breath sounds , no tenderness HEART : RRR, no obvious murmurs ABDOMEN: Some distention, nontender EXTREMITIES : Minimal LE swelling, no LEtenderness, no other conspicuous deformities noted NEUROLOGIC : Coherent, no facial asymmetry, no other gross focality Results & Data Results & Data ([facility]) Vital Signs (Past 12 Hours) Vital Signs Temp Pulse Pulse Resp BP BP Pulse Ox 12/23/19 20:11 66 20 105/67 94 12/23/19 18:35 65 16 112/84 12/23/19 18:30 63 14 119/73 12/23/19 17:00 67 14 12/23/19 16:59 67 19 12/23/19 16:50 66 20 119/73 95 12/23/19 16:39 66 12 119/73 12/23/19 15:44 37.1 C 73 20 177/90 H 93 Laboratory Results Laboratory Results WBC 3.57 K/uL (4.8-10.8) L 12/23/19 17:30 RBC 2.89 M/uL (4.2-5.4) L 12/23/19 17:30 Hgb 8.8 g/dL (12.0-16.0) L 12/23/19 17:30 Hct 29.6 % (37-47) L 12/23/19 17:30 MCV 102.4 fL (80-100) H 12/23/19 17:30 MCH 30.4 pg (25-34) 12/23/19 17: MCHC 29.7 g/dL (32-36) L 12/23/19 17: RDW Std Deviation 82.4 fL (36.4-46.3) H 12/23/19 17: RDW Coeff of Bradley 22.1 % (11.5-14.5) H 12/23/19: Plt Count 127 K/uL (130-400) L 12/23/19: MPV 12.8 fL (7.4-10.4) H 12/23/19 17: Immature Gran % (Auto) 0.3 % 12/23/19 17: Neut % (Auto) 61.3 % 12/23/19: Lymph % (Auto) 25.2 % 12/23/19 17: Ida % (Auto) 6.2 % 12/23/19 17: Eos % (Auto) 6.2 % 12/23/19: Baso % (Auto) 0.8 % 12/23/19: Immature Gran # (Auto) 0.01 K/uL (0.00-0.02) 12/23/19 17: Neut # (Auto) 2.19 K/uL (1.4-6.5) 12/23/19 17: Lymph # (Auto) 0.90 K/uL (1.2-3.4) L 12/23/19: Ida # (Auto) 0.22 K/uL (0.11-0.59) 12/23/19: Eos # (Auto) 0.22 K/uL (0-0.5) 12/23/19: Baso # (Auto) 0.03 K/uL (0-0.2) 12/23/19: Polychromasia 1+ 12/23/19:30 Anisocytosis Present 12/23/19: Ovalocytes 1+ 12/23/19 17:30 Sodium 142 mmol/L (136-145) 12/23/19: Potassium 3.9 mmol/L (3.5-5.1) 12/23/19: Chloride 107 mmol/L (98-107) 12/23/19 17:30 Carbon Dioxide 29 mmol/L (21-32) 12/23/19 17:30 Anion Gap 5.0 (3-11) 12/23/19 17:30 BUN 7 mg/dl (7-18) 12/23/19 17:30 Creatinine 0.67 mg/dl (0.6-1.2) 12/23/19 17:30 Est Cr Clr Drug Dosing 104.3 ml/min 12/23/19 17:30 Est GFR ( Amer) 107.7 12/23/19 17:30 Est GFR (Non-Af Amer) 92.9 12/23/19 17:30 BUN/Creatinine Ratio 10.5 (10-20) 12/23/19 17:30 Glucose 145 mg/dl (70-99) H 12/23/19 17:30 Lactate 3.0 mmol/L (0.4-2.0) H* 12/23/19 19:55 Calcium 8.9 mg/dl (8.5-10.1) 12/23/19 17:30 Magnesium 1.8 mg/dl (1.8-2.4) 12/23/19 17:30 Total Bilirubin 0.5 mg/dl (0.2-1) 12/23/19 17:30 AST 34 U/L (15-37) 12/23/19 17:30 ALT 27 U/L (12-78) 12/23/19 17:30 Alkaline Phosphatase 113 U/L (45-117) 12/23/19 17:30 Troponin I < 0.015 ng/ml (0-0.045) 12/23/19 17:30 NT-Pro-B Natriuret Pep 52 pg/ml (0-900) 12/23/19 17:30 Total Protein 6.7 gm/dl (6.4-8.2) 12/23/19 17:30 Albumin 3.0 gm/dl (3.4-5.0) L 12/23/19 17:30 Globulin 3.7 gm/dl (2.5-4.0) 12/23/19 17:30 Albumin/Globulin Ratio 0.8 (0.9-2) L 12/23/19 17:30 Lipase 60 U/L (73-393) L 12/23/19 17:30 Procalcitonin 0.06 ng/ml (0-0.5) 12/23/19 17:30 TSH 37.700 uIu/ml (0.300-4.500) H 12/23/19 17:30 Free T4 0.85 ng/dl (0.8-1.6) 12/23/19 17:30 Urine Color Yellow 12/23/19 20:05 Urine Appearance Clear (Clear) 12/23/19 20: Urine pH 6.5 (4.5-7.5) 12/23/19 20:05 Ur Specific [place] 1.015 (1.000-1.030) 12/23/19 20:05 Urine Protein Negative (Negative) 12/23/19 20:05 Urine Glucose (UA) Negative (Negative) 12/23/19: Urine Ketones Negative (Negative) 12/23/19 20: Urine Blood Negative (Negative) 12/23/19 20:05 Urine Nitrite Negative (Negative) 12/23/19 20:05 Urine Bilirubin Negative (Negative) 12/23/19 20: Urine Urobilinogen Negative (Negative) 12/23/19 20:05 Ur Leukocyte Esterase Trace (Negative) H 12/23/19 20:05 Urine WBC (Auto) 1-5 /hpf (0-5) 12/23/19 20:05 Urine RBC (Auto) 0-4 /hpf (0-4) 12/23/19 20:05 U Hyaline Cast (Auto) 1-5 /lpf (0-5) 12/23/19 20:05 U Epithel Cells (Auto) 10-20 /lpf (0-5) H 12/23/19 20:05 Urine Bacteria (Auto) Negative (Negative) 12/23/19 20:05 Influenza Type A (PCR) Neg for Influ A (Neg) 12/23/19 16:25 Influenza Type B (PCR) Neg for Influ B (Neg) 12/23/19 16:25 Diagnostic Findings Chest x-ray : Chronic change. No acute process. The lungs are clear. EKG as per my interpretation : Rate 65, NSR, LAD, LAFB, 1 AVB, T wave flattening septal leads, low voltage
[2019-12-23] MEDS ORDERED: GLUCOSE 10 TABS/TUBE PO PRN (22:15)
[2019-12-23] MEDS ORDERED: GLUCOSE 40% GEL 15 GM TUBE PO PRN (22:15)
[2019-12-23] MEDS ORDERED: CARBOHYDRATES FOR HYPOGLYCEMIA PO PRN (22:15)
[2019-12-23] MEDS ORDERED: GLUCAGON FOR INJ 1 MG VIAL SQ PRN (22:15)
[2019-12-23] MEDS ORDERED: ACETAMINOPHEN 325 MG TAB PO PRN (22:15)
[2019-12-23] MEDS ORDERED: TRAMADOL HCL 50 MG TABLET PO PRN (22:15)
[2019-12-23] MEDS ORDERED: PROMETHAZINE HCL 12.5 MG in SODIUM CHLORIDE 0.9% 50 ML IV PRN (22:15)
[2019-12-23] MEDS ORDERED: DEXTROSE 50% 50 ML SYRINGE IV PRN (22:15)
[2019-12-23] MEDS ORDERED: INSULIN GLARGINE SOLOSTAR 100 UNITS/ML 3 ML PEN SC ONE (23:00)
[2019-12-23] MEDS ORDERED: LACTATED RINGER'S 1,000 ML IV SCH (23:00)
[2019-12-23] MEDS: LACTATED RINGER'S 1,000 ML IV SCH (23:35)
[2019-12-24] MEDS: INSULIN ASPART 100 UNITS/ML 3 ML PEN SC SCH ×5 (00:30→20:49)
[2019-12-24] MEDS: LACTATED RINGER'S 1,000 ML IV SCH (05:56)
[2019-12-24] MEDS: LEVOTHYROXINE SODIUM 200 MCG TABLET PO SCH (05:57)
[2019-12-24 07:55] LABS: Hematocrit (blood only) 26.6 % (37-47); Mean Corpuscular Hemoglobin 30.5 pg (25-34); Mean Corpuscular Hgb Conc 30.1 g/dL (32-36); Mean Corpuscular Volume 101.5 fL (80-100); Platelet Count 105 K/uL (130-400); RDW Coefficient of Variation 22.1 % (11.5-14.5); Red Blood Count 2.62 M/uL (4.2-5.4); White Blood Count 2.85 K/uL (4.8-10.8)
[2019-12-24] MEDS: INSULIN GLARGINE SOLOSTAR 100 UNITS/ML 3 ML PEN SC SCH ×2 (08:07→20:48)
[2019-12-24] MEDS: FERROUS SULFATE 325 MG TAB PO SCH (08:10)
[2019-12-24] MEDS: ESCITALOPRAM OXALATE 20 MG TAB PO SCH (08:10)
[2019-12-24] MEDS: LACTOBACILLUS ACIDOPHILUS (FLORANEX) TAB PO SCH ×3 (08:10→17:12)
[2019-12-24] MEDS: GABAPENTIN 300 MG CAP PO SCH ×2 (08:10→12:05)
[2019-12-24] MEDS: nadoloL 40 MG TAB PO SCH (08:10)
[2019-12-24] MEDS: OXYBUTYNIN CHLORIDE 5 MG TAB PO SCH ×2 (08:10→20:48)
[2019-12-24] MEDS: TAMSULOSIN HCL 0.4 MG CAP PO SCH (08:10)
[2019-12-24] MEDS: ASPIRIN 81 MG ECTAB PO SCH (08:10)
[2019-12-24] MEDS: FAMOTIDINE 20 MG TAB PO SCH ×2 (08:10→20:47)
[2019-12-24] MEDS: SUCRALFATE 1 GM/10 ML UDC PO SCH ×4 (08:10→20:46)
[2019-12-24] MEDS: ASCORBIC ACID 500 MG TAB PO SCH (08:11)
[2019-12-24] MEDS: PANTOprazole 40 MG TAB PO SCH (08:11)
[2019-12-24] MEDS: FLUTICASONE PROPIONATE NA SPR 16 GM BTL SCH (08:11)
[2019-12-24 08:19] LABS: Anisocytosis Present; Basophils # (auto) 0.02 K/uL (0-0.2); Basophils % (auto) 0.7 %; Eosinophils # (auto) 0.17 K/uL (0-0.5); Giant Platelets 1+; Immature Granulocytes # (auto) 0.01 K/uL (0.00-0.02); Immature Granulocytes % (auto) 0.4 %; Lymphocytes # (auto) 0.86 K/uL (1.2-3.4); Lymphocytes % (auto) 30.2 %; Monocytes # (auto) 0.21 K/uL (0.11-0.59); Monocytes % (auto) 7.4 %; Neutrophils # (auto) 1.58 K/uL (1.4-6.5); Neutrophils % (auto) 55.3 %; Polychromasia 1+; Tear Drop Cells 1+
[2019-12-24 08:29] LABS: BUN Creatinine Ratio 12.6 (10-20); Calcium 8.7 mg/dl (8.5-10.1); Creatinine Clr Calc Pharmacy 120.5 ml/min; Est GFR (African American) 112.9; Est GFR (Non-African American) 97.4; Potassium 3.7 mmol/L (3.5-5.1)
[2019-12-24] MEDS: MICONAZOLE NITRATE POWDER 43 GM EXT SCH ×2 (10:06→20:46)
--- NOTE | 2019-12-24 14:44 | Hospitalist Progress Note ---
Date of Service December 24, 2019 Assessment & Plan (1) Malaise: Generalized weakness Recent history of pneumonia Possible viral bronchitis Vs unresolved symptoms from recent Infection Rule out COVID-19 H/O restrictive lung disease Possible deconditioning from recent infection CXR:Chronic change. No acute process. The lungs are clear. Influenza screen negative SARS-CoV-2 RNA:pending Blood Cx:pending Saturating well on room air Continue isolation precautions until COVID ruled out PT/OT Lactic acidosis Also noted to have chronic elevation in setting of liver disease No clear source of infection Lactate levels improved with IV fluids Monitor Elevated TSH H/O hypothyroidism Levothyroxine increased from 150 mcg to 200 mcg Needs repeat thyroid function test as outpatient H/O Restrictive lung disease H/O THAD Continue CPAP at bedtime H/O Mood disorder Fibromyalgia Continue Trazodone, Escitalopram NAFLD Cirrhosis H/O grade 1 esophageal varices, portal hypertension No signs of decompensation Continue home medications Chronic Pancytopenia Secondary to cirrhosis Hb at baseline Monitor CBC Cerebral Palsy As per records DM II Last Hb A1C: 6.2 Hold PO meds Continue insulin therapy while hospitalized Monitor blood glucose level Morbid Obesity: BMI:57 Ambulatory dysfunction at baseline Uses wheelchair DVT Px: SCDs RE thrombocytopenia Code Status Full code Disposition Expected discharge home in stable Admission and Anticipated Discharge Date Admission Date: December 23, 2019 Subjective Patient is seen and examined at bedside Reports dry cough this AM States feeling better today Denies chest pain, SOB, dizziness, nausea, abd pain Offers no other complaints Review of Systems Review of Systems: All systems reviewed & are unremarkable except as noted in HPI & below Physical Exam Physical Exam: Physical Exam: Vitals signs as noted above General Appearance:Morbidly Obese, no apparent distress Head: normocephalic, Atraumatic Eyes: normal inspection, EOMI Neck: supple, Trachea midline Respiratory/Chest: Decreased breath sounds, CTA Cardiovascular: S1, S2, No murmur Abdomen/GI:Soft, Non tender, Bowel sounds present Extremities/Musculoskelatal:normal inspection, mild LE edema Neurologic/Psych:grossly no focal neurological deficits Skin: normal color, warm Results & Data Results & Data ([facility]) Vital Signs (Past 12 Hours) Vital Signs Temp Pulse Pulse Resp BP Pulse Ox 12/24/19 11:55 36.8 C 69 20 112/75 91 12/24/19 08:16 118/76 04/14/20 08:02 36.8 C 66 20 96 12/24/19 07:33 63 12/24/19 05:50 36.8 C 65 20 117/74 92 Laboratory Results Short CBC 12/23/19 12/24/19 Range/Units 17:30 07:42 WBC 3.57 L 2.85 L (4.8-10.8) K/uL Hgb 8.8 L 8.0 L (12.0-16.0) g/dL Hct 29.6 L 26.6 L (37-47) % Plt Count 127 L 105 L (130-400) K/uL BMP 12/23/19 12/24/19 17:30 07:42 Sodium 142 142 Potassium 3.9 3.7 Chloride 107 108 H Carbon Dioxide 29 30 BUN 7 7 Creatinine 0.67 0.58 L Glucose 145 H 96 Calcium 8.9 8.7 Cardiac Enzymes 12/23/19 Range/Units 17:30 Troponin I < 0.015 (0-0.045) ng/ml Liver Function 12/23/19 Range/Units 17:30 Total Bilirubin 0.5 (0.2-1) mg/dl AST 34 (15-37) U/L ALT 27 (12-78) U/L Alkaline Phosphatase 113 (45-117) U/L Albumin 3.0 L (3.4-5.0) gm/dl Urine 12/23/19 Range/Units 20:05 Urine Color Yellow Urine Appearance Clear (Clear) Urine pH 6.5 (4.5-7.5) Ur Specific [employer] 1.015 (1.000-1.030) Urine Protein Negative (Negative) Urine Glucose (UA) Negative (Negative)
--- NOTE | 2019-12-24 15:51 | Electrocardiogram Report ---
Test Reason : Blood Pressure : / mmHG Vent. Rate : 067 BPM Atrial Rate : 067 BPM P-R Int : 240 ms QRS Dur : 092 ms QT Int : 420 ms P-R-T Axes : 025 -05 055 degrees QTc Int : 443 ms Poor data quality, interpretation may be adversely affected Sinus rhythm with 1st degree A-V block Low voltage QRS Nonspecific ST and T wave abnormality Possible Inferior infarct Abnormal ECG When compared with ECG of 15-DEC-2019 08:38, IN interval has increased Confirmed by Fausto Headley ([id number]) on 12/24/2019 3:51:44 PM Referred By: REFERRED SELF Confirmed By:Fausto Headley
[2019-12-24] MEDS ORDERED: ATORVASTATIN 40 MG TAB PO SCH (21:00)
[2019-12-24] MEDS ORDERED: TRAZODONE HCL 50 MG TAB PO SCH (21:00)
[2019-12-24] MEDS ORDERED: GABAPENTIN 600 MG TAB PO SCH (21:00)
[2019-12-24] MEDS ORDERED: CYCLOBENZAPRINE HCL 10 MG TAB PO SCH (21:00)
[2019-12-25 03:25] LABS: SARS CoV2 RNA (COVID-19) NOT DETECTED (NOT DETECTED)
[2019-12-25] MEDS: LEVOTHYROXINE SODIUM 200 MCG TABLET PO SCH (05:47)
[2019-12-25 06:23] LABS: Hematocrit (blood only) 27.9 % (37-47); Hemoglobin 8.4 g/dL (12.0-16.0); Mean Corpuscular Hemoglobin 30.8 pg (25-34); Mean Corpuscular Hgb Conc 30.1 g/dL (32-36); Mean Corpuscular Volume 102.2 fL (80-100); Platelet Count 119 K/uL (130-400); RDW Coefficient of Variation 22.1 % (11.5-14.5); RDW Standard Deviation 82.7 fL (36.4-46.3); Red Blood Count 2.73 M/uL (4.2-5.4); White Blood Count 4.27 K/uL (4.8-10.8)
[2019-12-25 06:49] LABS: BUN Creatinine Ratio 11.8 (10-20); Calcium 8.5 mg/dl (8.5-10.1); Creatinine Clr Calc Pharmacy 122.7 ml/min; Est GFR (African American) 113.5; Magnesium 1.8 mg/dl (1.8-2.4); Potassium 3.3 mmol/L (3.5-5.1)
[2019-12-25 06:55] LABS: Anisocytosis Present; Basophils # (auto) 0.02 K/uL (0-0.2); Basophils % (auto) 0.5 %; Eosinophils # (auto) 0.23 K/uL (0-0.5); Eosinophils % (auto) 5.4 %; Lymphocytes # (auto) 0.89 K/uL (1.2-3.4); Lymphocytes % (auto) 20.8 %; Macrocytosis Present; Monocytes # (auto) 0.26 K/uL (0.11-0.59); Monocytes % (auto) 6.1 %; Neutrophils # (auto) 2.87 K/uL (1.4-6.5); Neutrophils % (auto) 67.2 %
[2019-12-25] MEDS ORDERED: POTASSIUM CHLORIDE 20 MEQ TABCR PO ONE (08:15)
--- NOTE | 2019-12-25 08:31 | Hospitalist Progress Note ---
Date of Service December 25, 2019 Assessment & Plan (1) Malaise: Generalized weakness Generalized weakness from recent history of pneumonia (Possible viral bronchitis Vs unresolved symptoms from recent Infection) COVID-19 screening is done and COVID 19 is ruled out as cause of symptoms H/O re strictive lung disease Possible deconditioning from recent infection -Admission CXR:Chronic change. No acute process. The lungs are clear. -Influenza screen negative -COVID-19 "Coronavirus" testing was done and patient does not have "Coronavirus" as SARS-CoV-2 RNA: is negative -12/24/2019 Blood Cultures: no growth to date -adjustments made to patients hypothyroid medications Lactic acidosis -appears to have chronic elevation in setting of liver disease -No clear source of infection. Admission Lactatic acid of 3.5 levels resolved with IV fluids by 12/24/2019 NAFLD Cirrhosis H/O grade 1 esophageal varices, portal hypertension -No signs of decompensation -Continue home medications Chronic Pancytopenia -Secondary to cirrhosis Hypomagnesemia -Patients seum magnesium levels generally under 2 chronically but not too extremely low -serum magnesium is 1.8 on 12/25/2019 and will give oral magnesium supplements of 400 mg daily Hypothyroidism -Levothyroxine increased from 150 mcg to 200 mcg on this admission because of elevated TSH of 37.7 -Needs repeat thyroid function test as outpatient as per family doctor likely in 3 to 6 weeks while on increased Levothyroxine medications H/O Restrictive lung disease H/O THAD -Continue CPAP at bedtime Type 2 Diabetes without nursing home current use of insulin -Last Hb A1C: 6.2 -resume home medications on discharge H/O Mood disorder Fibromyalgia -Continue Trazodone, Escitalopram Cerebral Palsy -As per records -patient minimally moves the legs when on the hospital bed which is baseline as per patient Morbid Obesity: -BMI:57 Ambulatory dysfunction at baseline -Uses wheelchair Discharge Diagnosis: Lactic Acid Acidosis, Malaise (COVID-19 "Coronavirus" testing was done and patient does not have "Coronavirus"), Pancytopenia from Nonalcoholic steatohepatitis/ Non-Alcoholic Fatty Liver Disease (NAFLD) cirrhosis, Hypothyroidism Admission and Anticipated Discharge Date Admission Date: December 23, 2019 discharge date 12/25/2019 Subjective Patient seen and examined laying on the bed resting comforatbly and breathing on room air. She is eating breakfast. The COVID-19 results have returned as negative. Patient denies shortness of breath. no chest pain. no abdomen pain. shes moves the legs minimally when on the hospital bed which is baseline as per patient. No new symptoms. She wishes to go home under care of her . We discussed discharge plans and follow ups and discharge medications Review of Systems Review of Systems: All systems reviewed & are unremarkable except as noted in HPI & below Physical Exam Constitutional: comfortable Eyes: PERRL, conjunctivae normal, anicteric sclerae EOM intact bilaterally ENMT: external ear and nose normal, oropharynx normal Neck: normal visual inspection Respiratory: normal respiratory effort, lungs clear to auscultation Cardiovascular: Rate/Rhythm: regular rate and regular rhythm Gastrointestinal (Abdomen): normal bowel sounds, soft, nontender, no hepatosplenomegaly Musculoskeletal: Head/Neck/Chest: normocephalic and head atraumatic Neurologic: PERRL, EOMI, accommodation nl, no face palsy, no dysarthria patient minimally moves the legs when on the hospital bed which is baseline as per patient Psychiatric: A+Ox3, euthymic affect Results & Data Results & Data ([facility]) Vital Signs (Past 12 Hours) Vital Signs Temp Pulse Pulse Resp BP Pulse Ox 12/25/19 07:39 36.4 C L 65 18 102/67 92 12/25/19 07:14 65 12/25/19 06:01 36.7 C 66 18 105/66 92 12/24/19 20:46 36.8 C 66 18 105/66 91
--- NOTE | 2019-12-25 08:46 | Discharge Summary ---
Date of Service December 25, 2019 Admission HPI Per Admitting Provider History obtained from the patient and records. Medical history significant for restrictive lung disease as per records, mood disorder, fibromyalgia, hypertension, hyperlipidemia, NAFLD cirrhosis, THAD on CPAP, DM2 insulin requiring chronic pancytopenia (baseline hemoglobin 8-9), cerebral palsy as per records, hypothyroidism Recent confinement last week for right middle lobe pneumonia. Patient discharged on Levaquin course. Patient has not felt well since leaving the hospital. Junky cough now dry. No unusual shortness of breath. No chest pain. No abdominal pain. No diarrhea. Denies dysuria. Appetite not so good. Patient seen at PCPs office and subsequently directed to the ER for further evaluation. MEDICAL HISTORY: As above. SURGICAL HISTORY: She has had dental surgery, gynecologic section, hip surgery, and tendon repair. FAMILY HISTORY: Heart disease. Diabetes PERSONAL AND SOCIAL HISTORY: Nonsmoker. No chronic intake of alcoholic beverages, disabled. Principal Diagnosis Lactic Acid Acidosis, Malaise (COVID-19 "Coronavirus" testing was done and patient does not have "Coronavirus"), Pancytopenia from Nonalcoholic steatohepatitis/ Non-Alcoholic Fatty Liver Disease (NAFLD) cirrhosis, Hypothyroidism, Hypomagnesemia Discharge Exam Constitutional comfortable Eyes PERRL, conjunctivae normal, anicteric sclerae EOM intact bilaterally ENMT external ear and nose normal, oropharynx normal Neck normal visual inspection Respiratory normal respiratory effort, lungs clear to auscultation Cardiovascular Rate/Rhythm: regular rate and regular rhythm Gastrointestinal (Abdomen) normal bowel sounds, soft, nontender, no hepatosplenomegaly Musculoskeletal Head/Neck/Chest: normocephalic and head atraumatic Neurologic PERRL, EOMI, accommodation nl, no face palsy, no dysarthria Psychiatric A+Ox3, euthymic affect Discharge Data Allergies Allergy/AdvReac Type Severity Reaction Status Date / Time Penicillins Allergy Intermediate Hives Verified 12/23/19 16:49 Consultations 12/23/19 19:48 ED Decision to Admit Stat 12/23/19 22:15 Consult Case Management - Discharge Planning Routine Hospital Course (1) Malaise: Generalized weakness Generalized weakness from recent history of pneumonia (Possible viral bronchitis Vs unresolved symptoms from recent Infection) COVID-19 screening is done and COVID 19 is ruled out as cause of symptoms H/O restrictive lung disease Possible deconditioning from recent infection -Admission CXR:Chronic change. No acute process. The lungs are clear. -Influenza screen negative -COVID-19 "Coronavirus" testing was done and patient does not have "Coronavirus" as SARS-CoV-2 RNA: is negative -12/24/2019 Blood Cultures: no growth to date -adjustments made to patients hypothyroid medications Lactic acidosis -appears to have chronic elevation in setting of liver disease -No clear source of infection. Admission Lactatic acid of 3.5 levels resolved with IV fluids by 12/24/2019 NAFLD Cirrhosis H/O grade 1 esophageal varices, portal hypertension -No signs of decompensation -Continue home medications Chronic Pancytopenia -Secondary to cirrhosis Hypomagnesemia -Patients seum magnesium levels generally under 2 chronically but not too extremely low -serum magnesium is 1.8 on 12/25/2019 and will give oral magnesium supplements of 400 mg daily Hypothyroidism -Levothyroxine increased from 150 mcg to 200 mcg on this admission because of elevated TSH of 37.7 -Needs repeat thyroid function test as outpatient as per family doctor likely in 3 to 6 weeks while on increased Levothyroxine medications H/O Restrictive lung disease H/O THAD -Continue CPAP at bedtime Diabetes Mellitus Type 2 with long term acute care registered nurse Current use of insulin -Last Hb A1C: 6.2 -because of recent lactic acidosis, patient advised to STOP TAKING METFORMIN at home because metformin can increase lactic acid levels. Patient may continue her other diabetes medications H/O Mood disorder Fibromyalgia -Continue Trazodone, Escitalopram Cerebral Palsy -As per records -patient minimally moves the legs when on the hospital bed which is baseline as per patient Morbid Obesity: -BMI:57 Ambulatory dysfunction at baseline -Uses wheelchair Discharge Diagnosis: Lactic Acid Acidosis, Malaise (COVID-19 "Coronavirus" testing was done and patient does not have "Coronavirus"), Pancytopenia from Nonalcoholic steatohepatitis/ Non-Alcoholic Fatty Liver Disease (NAFLD) cirrhosis, Hypothyro idism, Hypomagnesemia Total Time Total Time Spent Total Time Spent (In Minutes): 40 minutes Discharge Plan Discharge Items Patient Disposition: Home - Self-Care Reason For Visit: WEAKNESS Discharge Diagnosis: Lactic Acid Acidosis, Malaise (COVID-19 "Coronavirus" testing was done and patient does not have "Coronavirus"), Pancytopenia from Nonalcoholic steatohepatitis/ Non-Alcoholic Fatty Liver Disease (NAFLD) cirrhosis, Hypothyroidism, Hypomagnesemia Condition on Discharge: Good Activity: Resume your previous activity Non-emergency contact: Primary Care Provider Call non-emergency contact if: you have any medication questions Follow-up/Referrals: Rajwinder Carter DO [Primary Care Provider] - 01/01/20 11:20 am (01/01/2020 11:20 AM Provider Carter Chan MD Department Family Practice [facility] NOTE: This is a telephone appointment ) Diet: Carb Consistent or DM2 and Heart Healthy Addtl Attending Provider Instructions: COVID-19 "Coronavirus" testing was done and patient does not have "Coronavirus" Patient is to be discharged 30 day supply of increase with magnesium supplements of 400 mg daily for 10 days and Levothyroxine increased from 150 mcg to 200 mcg on this admission because of elevated TSH of 37.7 Needs repeat thyroid function test as outpatient as per family doctor likely in 3 to 6 weeks while on increased Levothyroxine medications Discharge medications sent electronically to [facility] [address] [place] [id number] also because of recent lactic acidosis, patient advised to STOP TAKING METFORMIN at home because metformin can increase lactic acid levels. Patient may continue her other diabetes medications recommend routine followup with primary care doctor in clinic or through telemedicine in 1 week upcoming appointments 01/02/2020 11:45 AM Provider Chair 10 Hem Onc [facility] [place] Department Hematology/Oncology Treatment, [place] 01/16/2020 11:45 AM Provider Chair 11 Hem Onc [facility] Department Hematology/Oncology Treatment, [place] 01/27/2020 2:20 PM Provider Rajwinder Carter DO Department [facility] 01/29/2020 12:30 PM Provider Melissa Omalley RDN Department Nutrition & Weight Management, [facility] Pending Studies at Discharge: No Stand-Alone Forms: My [employer], Smoking Cessation Medications and DC Order Prescriptions: New magnesium oxide 400 mg (241.3 mg magnesium) Tablet 400 mg PO QAM 10 Days Qty: 10 RF: 0 levothyroxine [Synthroid] 200 mcg Tablet 200 mcg PO DAILYBB 30 Days Qty: 30 RF: 1 Continued tamsulosin 0.4 mg capsule 0.4 mg PO QAM Qty: 30 RF: 0 escitalopram oxalate 20 mg tablet 20 mg PO QAM RF: 0 fluticasone propionate [Flonase Allergy Relief] 50 mcg/actuation [place],Suspension 2 spray Intranasal QAM RF: 0 Centrum Silver 0.4-300-250 mg-mcg-mcg Tablet 1 tab PO QAM RF: 0 pantoprazole 20 mg tablet,delayed release (DR/EC) 40 mg PO QAM RF: 0 atorvastatin 40 mg tablet 40 mg PO HS RF: 0 albuterol sulfate 90 mcg/actuation Hfa Aerosol Inhaler 2 puff INHALATION Q4H PRN (Reason: Wheezing) RF: 0 oxybutynin chloride 5 mg tablet 5 mg PO BID RF: 0 nadolol 20 mg tablet 40 mg PO QAM RF: 0 Lactinex 1 million cell tablet,chewable 1 tab PO TID Qty: 30 RF: 0 cyclobenzaprine 10 mg Tablet 10 mg PO HS RF: 0 trazodone 50 mg Tablet 50 mg PO HS RF: 0 potassium chloride 10 mEq Tablet Extended Release 10 meq PO QAM RF: 0 aspirin [Aspir-81] 81 mg Tablet,Delayed Release (Dr/Ec) 81 mg PO QAM RF: 0 ascorbic acid (vitamin C) [Vitamin C] 500 mg Tablet 500 mg PO QAM RF: 0 gabapentin 300 mg Capsule See Rx Instructions .ROUTE .COMPLEX RF: 0 furosemide [Lasix] 20 mg Tablet 20 mg PO QAM RF: 0 Lantus Solostar U-100 Insulin 100 unit/mL (3 mL) Insulin Pen 24 unit SUBCUT HS RF: 0 dulaglutide 1.5 mg/0.5 mL Pen Injector 1.5 mg subcut MO RF: 0 ferrous sulfate 325 mg (65 mg iron) Tablet 325 mg PO QAM RF: 0 nystatin 100,000 unit/gram powder 1 applic TOPICAL TID RF: 0 albuterol sulfate 2.5 mg /3 mL (0.083 %) solution for nebulization 2.5 mg inhalation Q6H PRN (Reason: Wheezing) RF: 0 semaglutide 1 mg/dose (2 mg/1.5 mL) Pen Injector 1 mg SUBCUT WK RF: 0 sucralfate [Carafate] 100 mg/mL suspension 10 ml PO QID Qty: 420 RF: 0 famotidine 20 mg tablet 20 mg PO BID Qty: 20 RF: 0 Discontinued metformin 1,000 mg Tablet 1,000 mg PO BIDM RF: 0 levothyroxine 150 mcg Tablet 150 mcg PO DAILYBB RF: 0 Discharge Orders: Discharge Order (Routine); Ordered 12/25/19 Ordered By: Edgar Rose Admission Data Admit Date/Time: 12/23/19 21:07 Attending Provider: Edgar Rose Admit Provider: Glen Huber Primary Care Provider: Rajwinder Carter Other Providers: Glen Huber
[2019-12-25] MEDS: PANTOprazole 40 MG TAB PO SCH (08:56)
[2019-12-25] MEDS: ASCORBIC ACID 500 MG TAB PO SCH (08:56)
[2019-12-25] MEDS: GABAPENTIN 300 MG CAP PO SCH (08:56)
[2019-12-25] MEDS: nadoloL 40 MG TAB PO SCH (08:56)
[2019-12-25] MEDS: ASPIRIN 81 MG ECTAB PO SCH (08:56)
[2019-12-25] MEDS: TAMSULOSIN HCL 0.4 MG CAP PO SCH (08:57)
[2019-12-25] MEDS: FAMOTIDINE 20 MG TAB PO SCH (08:57)
[2019-12-25] MEDS: ESCITALOPRAM OXALATE 20 MG TAB PO SCH (08:57)
[2019-12-25] MEDS: OXYBUTYNIN CHLORIDE 5 MG TAB PO SCH (08:57)
[2019-12-25] MEDS: FERROUS SULFATE 325 MG TAB PO SCH (08:57)
[2019-12-25] MEDS: SUCRALFATE 1 GM/10 ML UDC PO SCH (08:57)
[2019-12-25] MEDS: LACTOBACILLUS ACIDOPHILUS (FLORANEX) TAB PO SCH (08:57)
[2019-12-25] MEDS: FLUTICASONE PROPIONATE NA SPR 16 GM BTL SCH (08:58)
[2019-12-25] MEDS: MICONAZOLE NITRATE POWDER 43 GM EXT SCH (08:58)
[2019-12-25] MEDS ORDERED: MAGNESIUM OXIDE 400 MG TAB PO SCH (09:00)
[2019-12-25] MEDS: INSULIN ASPART 100 UNITS/ML 3 ML PEN SC SCH (09:05)
[2019-12-25] MEDS: INSULIN GLARGINE SOLOSTAR 100 UNITS/ML 3 ML PEN SC SCH (09:06)
== END 2019-12-25 11:24 | disposition home or self-care (01) ==
LOC: 2W 15:30 → ED 15:30 → SUATTDRO 21:07 → 2W 21:37

== ENCOUNTER 2020-01-15 13:12 | Observation (INO) ==
--- NOTE | 2020-01-15 14:12 | Emergency Department Note ---
History of Present Illness General Chief complaint: Illness Time Seen by Provider: 01/15/20 13:49 History of Present Illness Maximum Pain Intensity: 0 This is a 64-year-old female with an extensive and complex past medical history that presents to the emergency department via ambulance with complaints of "illness". The patient states that she was recently admitted here and discharged for what she believes was pneumonia. She was tested for coronavirus and was found to be negative (12/23/2019). She states that she has been doing well but last night she felt chilled and then warm and then today around 1230 was eating some food and felt as though it may have gotten stuck but she is still able to tolerate liquids. She now has an associated cough and when she tries to expectorate whenever may be stuck it does not seem to want to come up. She also has associated shortness of breath and some chest pain that she describes as a band across her chest. No recent trauma or injury. No nausea or vomiting. She denies any travel or recent contacts that have been ill that she is aware of. In review of her previous history and documentation here in the system it appears that she was indeed admitted on December 23, 2019 for what appear to be general malaise, with negative coronavirus testing noted on progress notes. Prior to that she did have recent history of pneumonia. The lactic acidosis that she had at the time appeared to been chronic elevation in setting of liver disease. After discharge she then presented to the emergency department on December 28. At that time she was diagnosed with a UTI and was prescribed Macrobid but does appear that she was changed to Cefdinir secondary to resistance on December 30. Home Medications Home Medications Medication Instructions Recorded Confirmed Type Lantus Solostar U-100 Insulin 24 unit SUBCUT HS 06/16/18 01/15/20 History ascorbic acid (vitamin C) [Vitamin 500 mg PO DAILY 06/16/18 01/15/20 History C] aspirin [Aspir-81] 81 mg PO QAM 06/16/18 01/15/20 History cyclobenzaprine 10 mg PO HS 06/16/18 01/15/20 History dulaglutide 1.5 mg SUBCUT WK 06/16/18 01/15/20 History furosemide [Lasix] 20 mg PO Q2D 06/16/18 01/15/20 History gabapentin 300 mg PO DAILY 06/16/18 01/15/20 History potassium chloride 10 meq PO DAILY 06/16/18 01/15/20 History trazodone 50 mg PO HS 06/16/18 01/15/20 History Centrum Silver 1 tab PO QAM 07/19/18 01/15/20 History escitalopram oxalate 20 mg PO DAILY 07/19/18 01/15/20 History fluticasone propionate [Flonase 2 spray INTRANASAL QAM 07/19/18 01/15/20 History Allergy Relief] ferrous sulfate 325 mg PO BID 02/21/19 01/15/20 History tamsulosin 0.4 mg capsule 0.4 mg PO QAM #30 cap 06/26/19 01/15/20 History albuterol sulfate 2 puff INHALATION Q4H PRN 09/09/19 01/15/20 History atorvastatin 40 mg PO HS 09/09/19 01/15/20 History nadolol 40 mg PO DAILY 09/09/19 01/15/20 History oxybutynin chloride 5 mg PO BID 09/09/19 01/15/20 History pantoprazole 40 mg PO DAILY 09/09/19 01/15/20 History nystatin 1 applic TOPICAL TID 11/20/19 01/15/20 History albuterol sulfate 2.5 mg INHALATION Q6H PRN 11/28/19 01/15/20 History semaglutide [Ozempic] 1 mg SUBCUT WK 11/28/19 01/15/20 History levothyroxine [Synthroid] 200 mcg PO DAILYBB 30 Days #30 tab 12/25/19 01/15/20 Rx gabapentin 300 mg PO DAILYBL 01/15/20 01/15/20 History gabapentin 600 mg PO HS 01/15/20 01/15/20 History metformin 1,000 mg PO BID 01/15/20 01/15/20 History Allergies Allergy/AdvReac Type Severity Reaction Status Date / Time Penicillins Allergy Intermediate Hives Verified 12/29/19 16:29 Past Med/Surg History Medical History Acute cystitis (Acute) Ambulatory dysfunction Ambulatory dysfunction (Acute) Anxiety Asthma (Chronic) DOES NOT USE INH. REPORTS USING NEB TREATMENTS BID. Bilateral lower extremity edema (Chronic) Cardiac murmur Cerebral palsy (Chronic) Chest pain (Acute) Chronic back pain Chronic pain (Chronic) Complicated UTI (urinary tract infection) Contusion of knee, right (Acute) Contusion of leg (Acute) Cough CHRONIC PER PT REPORT Depression DM type 2 (diabetes mellitus, type 2) (Chronic) IDDM Dyslipidemia (Chronic) Encounter for pre-operative examination Fall (Acute) Fibromyalgia (Chronic) VIDA (generalized anxiety disorder) (Chronic) GERD (gastroesophageal reflux disease) History of kidney stones History of migraine (Chronic) Hoarseness of voice CHRONIC PER PT REPORT Hypertension Hypothyroidism (Chronic) Major depressive disorder, recurrent, moderate (Chronic) NG (nonalcoholic steatohepatitis) (Chronic) Obesity (BMI 30-39.9) Obesity, morbid (more than 100 lbs over ideal weight or BMI > 40) (Chronic) Obstructive sleep apnea (Chronic) CPAP + OXYGEN AT 2 LPM @ NIGHT On home oxygen therapy 2 LPM @ NIGHT + CPAP Osteoarthritis (Chronic) Pancreatic cyst Pleurisy (Acute) Poor historian Right ankle sprain (Acute) Right knee sprain (Acute) SOB (shortness of breath) on exertion Urinary catheter dysfunction (Acute) Venous insufficiency (Chronic) VRE (vancomycin resistant enterococcus) culture positive (Acute) Surgical History H/O Achilles tendon repair (Chronic) H/O section (Chronic) H/O wisdom tooth extraction (Chronic) History of Achilles tendon repair History of section History of colonoscopy History of D&C (Chronic) History of dilatation and curettage History of esophagogastroduodenoscopy (EGD) History of tooth extraction Family History (Updated 01/15/20 @ 17:46 by aCron Jacobs PA-C) Father Family history of diabetes mellitus Myocardial infarction, Onset Age: 61 Mother Myocardial infarction, Onset Age: 72 Sister Myocardial infarction Social History Preferred Language: Japanese Communication Ability: Effective 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 Beliefs That Will Affect Care: None marital status: Current Living Situation: Spouse and Family Current Living Situation Comment: Lives with , Sister and grandson Other Information That Helps Us Care for You: No Feels Safe at Home: Yes Safety Concerns: Feels Safe At This Time Smoking Status: Never smoker Do You Dip or Chew Tobacco: No ; Second Hand Exposure: No ; Tobacco Cessation Education Requested by Patient: No Hx Alcohol Use: No Hx Substance Use: No Review of Systems A total of 10 systems reviewed and were otherwise negative Physical Exam Vital Signs Vital Signs - 24 hr 01/15/20 13:21 01/15/20 14:06 01/15/20 15:00 Temperature 37.1 C Temperature Source Oral Pulse Rate 70 67 Pulse Rate from SpO2 Sensor 68 Respiratory Rate 18 15 Blood Pressure 106/71 Blood Pressure Mean 82 Pulse Oximetry 96 96 93 Oxygen Delivery Method Room Air Room Air Nasal Cannula Oxygen Flow Rate 2 Sepsis Recent Fever Within 48 Hours No Sepsis New/Unexplained Change in Mental Status No Sepsis Action Taken by Nursing No Action Required 01/15/20 15:44 01/15/20 16:00 01/15/20 16:18 Temperature Temperature Source Pulse Rate 63 63 70 Pulse Rate from SpO2 Sensor 63 63 70 Respiratory Rate 12 15 15 Blood Pressure 110/80 92/61 L 85/63 L Blood Pressure Mean 91 79 79 Pulse Oximetry 95 95 95 Oxygen Delivery Method Nasal Cannula Nasal Cannula Nasal Cannula Oxygen Flow Rate 2 2 2 Sepsis Recent Fever Within 48 Hours Sepsis New/Unexplained Change in Mental Status Sepsis Action Taken by Nursing 01/15/20 16:42 01/15/20 16:50 01/15/20 16:51 Temperature Temperature Source Pulse Rate 63 63 63 Pulse Rate from SpO2 Sensor 62 62 62 Respiratory Rate 15 16 14 Blood Pressure 109/66 110/73 116/84 Blood Pressure Mean 69 92 94 Pulse Oximetry 97 97 96 Oxygen Delivery Method Nasal Cannula Nasal Cannula Nasal Cannula Oxygen Flow Rate 2 2 2 Sepsis Recent Fever Within 48 Hours Sepsis New/Unexplained Change in Mental Status Sepsis Action Taken by Nursing 01/15/20 17:01 01/15/20 17:21 01/15/20 17:24 Temperature Temperature Source Pulse Rate 62 61 Pulse Rate from SpO2 Sensor 63 62 61 Respiratory Rate 16 16 16 Blood Pressure 106/54 L 87/62 L 89/67 L Blood Pressure Mean 60 75 82 Pulse Oximetry 98 98 98 Oxygen Delivery Method Nasal Cannula Nasal Cannula Nasal Cannula Oxygen Flow Rate 2 2 2 Sepsis Recent Fever Within 48 Hours Sepsis New/Unexplained Change in Mental Status Sepsis Action Taken by Nursing 01/15/20 17:30 01/15/20 17:40 Temperature Temperature Source Pulse Rate Pulse Rate from SpO2 Sensor 62 63 Respiratory Rate 16 18 Blood Pressure 100/83 110/70 Blood Pressure Mean 93 77 Pulse Oximetry 98 96 Oxygen Delivery Method Nasal Cannula Nasal Cannula Oxygen Flow Rate 2 2 Sepsis Recent Fever Within 48 Hours Sepsis New/Unexplained Change in Mental Status Sepsis Action Taken by Nursing VITAL SIGNS - Vital signs and nursing notes were reviewed. Stable and afebrile. GENERAL - 64-year-old female appearing her stated age who is in no acute distress. Communicates well with provider and answers questions appropriately. SKIN - Without rashes. No meningeal or petechial rash. HEAD - NC/AT. EYES - PERRL with EOMI bilaterally. Sclera anicteric. EARS - No deformities of external structures noted on gross examination bilaterally. NOSE - Midline and without cyanosis. No epistaxis or purulent drainage noted. MOUTH/OROPHARYNX - Without perioral cyanosis. NECK - Neck with FROM. No nuchal rigidity. LUNGS - Chest wall symmetric without accessory muscle use, intercostals retractions, or central cyanosis. Lungs are clear to auscultation. CARDIAC - RRR with S1/S2. No murmur, rubs, or gallops appreciated. ABDOMEN -no tenderness to palpation. EXTREMITIES - No peripheral cyanosis. +5/5 strength noted in UE/LE bilaterally. NEUROLOGIC - Cranial nerves II through XII grossly intact. PSYCH - A&O, and cooperates fully with examiner. Pt is very pleasant and interacts well with examiner. Course Administered Medications Discontinued Medications Sodium Chloride (Nss 1000ml) 1,000 mls @ 500 mls/hr IV .Q2H KRISTY Stop: 01/15/20 17:59 Last Admin: 01/15/20 15:53 Dose: 250 mls/hr Documented by: [id number] Cefepime HCl (Maxipime) 2,000 mg in 20 mls @ 5 mls/min IV NOW STA; Protocol Stop: 01/15/20 16:09 Last Admin: 01/15/20 16:10 Dose: 5 mls/min Documented by: [id number] Medical Decision Making Laboratory Data Result diagrams: 01/15/20 14:23 01/15/20 14:23 Lab Results 01/15/20 01/15/20 01/15/20 Range/Units 13:36 14:23 14:23 WBC 3.69 L (4.8-10.8) K/uL RBC 2.91 L (4.2-5.4) M/uL Hgb 8.9 L (12.0-16.0) g/dL Hct 30.0 L (37-47) % MCV 103.1 H (80-100) fL MCH 30.6 (25-34) pg MCHC 29.7 L (32-36) g/dL RDW Std Deviation 80.0 H (36.4-46.3) fL RDW Coeff of Bradley 21.4 H (11.5-14.5) % Plt Count 114 L (130-400) K/uL MPV 12.9 H (7.4-10.4) fL Immature Gran % (Auto) 0.0 % Neut % (Auto) 57.5 % Lymph % (Auto) 19.5 % Wise % (Auto) 10.0 % Eos % (Auto) 12.2 % Baso % (Auto) 0.8 % Immature Gran # (Auto) 0.00 (0.00-0.02) K/uL Neut # (Auto) 2.12 (1.4-6.5) K/uL Lymph # (Auto) 0.72 L (1.2-3.4) K/uL Wise # (Auto) 0.37 (0.11-0.59) K/uL Eos # (Auto) 0.45 (0-0.5) K/uL Baso # (Auto) 0.03 (0-0.2) K/uL Anisocytosis Present Tear Drop Cells 1+ PT 11.9 (9.0-12.0) Seconds INR 1.1 (0.9-1.1) APTT 29.3 (21.0-31.0) Seconds PTT Ratio 1.1 Sodium (136-145) mmol/L Potassium (3.5-5.1) mmol/L Chloride (98-107) mmol/L Carbon Dioxide (21-32) mmol/L Anion Gap (3-11) BUN (7-18) mg/dl Creatinine (0.6-1.2) mg/dl Est Cr Clr Drug Dosing ml/min Est GFR ( Amer) Est GFR (Non-Af Amer) BUN/Creatinine Ratio (10-20) Glucose (70-99) mg/dl Lactate (0.4-2.0) mmol/L Calcium (8.5-10.1) mg/dl Magnesium (1.8-2.4) mg/dl Total Bilirubin (0.2-1) mg/dl AST (15-37) U/L ALT (12-78) U/L Alkaline Phosphatase (45-117) U/L Troponin I (0-0.045) ng/ml NT-Pro-B Natriuret Pep (0-900) pg/ml Total Protein (6.4-8.2) gm/dl Albumin (3.4-5.0) gm/dl Globulin (2.5-4.0) gm/dl Albumin/Globulin Ratio (0.9-2) Lipase (73-393) U/L TSH (0.300-4.500) uIu/ml Urine Color Yellow Urine Appearance Cloudy A (Clear) Urine pH 8.0 H (4.5-7.5) Ur Specific [place] 1.023 (1.000-1.030) Urine Protein 2+ H (Negative) Urine Glucose (UA) Trace H (Negative) Urine Ketones Negative (Negative) Urine Blood 3+ H (Negative) Urine Nitrite Negative (Negative) Urine Bilirubin Negative (Negative) Urine Urobilinogen Negative (Negative) Ur Leukocyte Esterase 3+ H (Negative) Urine WBC (Auto) >30 H (0-5) /hpf Urine RBC (Auto) >30 H (0-4) /hpf U Hyaline Cast (Auto) 1-5 (0-5) /lpf U Epithel Cells (Auto) 0-5 (0-5) /lpf Urine Bacteria (Auto) 4+ H (Negative) 01/15/20 01/15/20 01/15/20 Range/Units 14:23 14:23 16:29 WBC (4.8-10.8) K/uL RBC (4.2-5.4) M/uL Hgb (12.0-16.0) g/dL Hct (37-47) % MCV (80-100) fL MCH (25-34) pg MCHC (32-36) g/dL RDW Std Deviation (36.4-46.3) fL RDW Coeff of Bradley (11.5-14.5) % Plt Count (130-400) K/uL MPV (7.4-10.4) fL Immature Gran % (Auto) % Neut % (Auto) % Lymph % (Auto) % Wise % (Auto) % Eos % (Auto) % Baso % (Auto) % Immature Gran # (Auto) (0.00-0.02) K/uL Neut # (Auto) (1.4-6.5) K/uL Lymph # (Auto) (1.2-3.4) K/uL Wise # (Auto) (0.11-0.59) K/uL Eos # (Auto) (0-0.5) K/uL Baso # (Auto) (0-0.2) K/uL Anisocytosis Tear Drop Cells PT (9.0-12.0) Seconds INR (0.9-1.1) APTT (21.0-31.0) Seconds PTT Ratio Sodium 141 (136-145) mmol/L Potassium 4.0 (3.5-5.1) mmol/L Chloride 109 H (98-107) mmol/L Carbon Dioxide 25 (21-32) mmol/L Anion Gap 7.0 (3-11) BUN 13 (7-18) mg/dl Creatinine 0.74 (0.6-1.2) mg/dl Est Cr Clr Drug Dosing 93.5 ml/min Est GFR ( Amer) 99.2 Est GFR (Non-Af Amer) 85.6 BUN/Creatinine Ratio 17.4 (10-20) Glucose 300 H (70-99) mg/dl Lactate 2.4 H* 2.3 H* (0.4-2.0) mmol/L Calcium 8.5 (8.5-10.1) mg/dl Magnesium 2.0 (1.8-2.4) mg/dl Total Bilirubin 0.5 (0.2-1) mg/dl AST 33 (15-37) U/L ALT 25 (12-78) U/L Alkaline Phosphatase 112 (45-117) U/L Troponin I < 0.015 (0-0.045) ng/ml NT-Pro-B Natriuret Pep 67 (0-900) pg/ml Total Protein 6.9 (6.4-8.2) gm/dl Albumin 3.0 L (3.4-5.0) gm/dl Globulin 3.9 (2.5-4.0) gm/dl Albumin/Globulin Ratio 0.8 L (0.9-2) Lipase 65 L (73-393) U/L TSH 2.790 (0.300-4.500) uIu/ml Urine Color Urine Appearance (Clear) Urine pH (4.5-7.5) Ur Specific [place] (1.000-1.030) Urine Protein (Negative) Urine Glucose (UA) (Negative) Urine Ketones (Negative) Urine Blood (Negative) Urine Nitrite (Negative) Urine Bilirubin (Negative) Urine Urobilinogen (Negative) Ur Leukocyte Esterase (Negative) Urine WBC (Auto) (0-5) /hpf Urine RBC (Auto) (0-4) /hpf U Hyaline Cast (Auto) (0-5) /lpf U Epithel Cells (Auto) (0-5) /lpf Urine Bacteria (Auto) (Negative) Imaging Data Radiologist's Impression: XR chest 1V portable CLINICAL HISTORY: 64 years-old Female presenting with chest pain. TECHNIQUE: Portable upright AP view of the chest was obtained. COMPARISON: 12/23/2019. FINDINGS: Atherosclerosis of the aortic arch. Cardiac silhouette enlarged. Mildly low lung volumes. No focal opacity. No large effusion or pneumothorax. Degenerative changes of the thoracic spine. Degenerative changes of the glenohumeral joints. Upper abdomen normal. IMPRESSION: 1. Cardiomegaly. No other convincing evidence of acute cardiopulmonary disease. ACT 112: Negative or not required by law. Electronically signed by: Norris Pineda M.D. 01/15/2020 2:35 PM MDM Narrative Patient was seen and evaluated as above in room A09. Review was performed of nursing notes and vital signs. I did review pertinent previous visits and patient history. After obtaining a thorough history and physical examination the above work up was performed. She is stating she has chest pain, shortness of breath, and generalized not feeling well. Mild chills. She did have COVID-19 testing not long ago (12/23/2019) and was negative. EKG was performed on her arrival and reveals sinus rhythm with first-degree AV block. This was compared to December 23, 2019 no significant change was found. QTc 462. No evidence of ST elevation DC. Labs were drawn. There is decrease in white blood cell count, red blood cell count blood volume and hematocrit indicating pancytopenia. Hemoglobin is stable compared to previous. There is no coagulopathy. There is lactic acid elevation which is similar to previous and actually improved. This was repeated and was trending downward. Glucose is 300. TSH reveals a euthyroid state. Urinalysis was a cath sample and indicates UTI. I am concerned as I will note the patient's most recent visit to the emergency department was for acute cystitis and based on culture was changed from Macrobid to Omnicef. I do believe that given the presentation here today further evaluation and management in the inpatient setting is warranted. In discussion with our pharmacist here in house and reviewing her previous urine cultures 2 g of cefepime was ordered. Patient tolerated this well. Second IV line was placed as the patient was beginning to trend with some lower blood pressures and she was hydrated with normal saline and these responded nicely. Case discussed with the hospitalist. Please refer to further documentation regarding her stay. Patient was amenable to staying. I also after obtaining consent did discuss with the patient's today's findings and recommendations. Patient is tolerating p.o. fluids. I do not suspect food bolus. While in the department, I personally reevaluated the patient several times and each time the patient was found to be resting comfortably. The patient was educated upon management, educated upon todays findings/results, and will be admitted. Case was discussed with the attending physician. In the evaluation and treatment of this patient, the following differential diagnoses were considered: DC, ASC, Dysrhythmia, Angina, Mediastinitis, GERD, Esophagitis, PE, Pneumonia, Bronchitis, Costochondritis, Rib Fracture, Zoster, UTI, pyelonephritis, among others. Impression & Plan Acute cystitis, Chest pain, Cough, Lactic acidemia, Pancytopenia Discharge Plan Visit Data Chief Complaint: Illness ED Provider: Surya Villarreal ED Midlevel Provider: Noah Piña Discharge Problem: Acute cystitis, Chest pain, Cough, Lactic acidemia, Pancytopenia Patient Disposition: Admitted As Inpatient Condition: Fair Discharge Instructions Interventions: ED Discharge Assessment Last Done: 01/15/20 17:50 Forms Stand Alone Forms: [employer] Prescriptions Prescriptions: No Action tamsulosin 0.4 mg capsule 0.4 mg PO QAM Qty: 30 RF: 0 escitalopram oxalate 20 mg tablet 20 mg PO DAILY RF: 0 fluticasone propionate [Flonase Allergy Relief] 50 mcg/actuation [place],S uspension 2 spray Intranasal QAM RF: 0 Centrum Silver 0.4-300-250 mg-mcg-mcg Tablet 1 tab PO QAM RF: 0 pantoprazole 20 mg tablet,delayed release (DR/EC) 40 mg PO DAILY RF: 0 atorvastatin 40 mg tablet 40 mg PO HS RF: 0 albuterol sulfate 90 mcg/actuation Hfa Aerosol Inhaler 2 puff INHALATION Q4H PRN (Reason: Wheezing) RF: 0 oxybutynin chloride 5 mg tablet 5 mg PO BID RF: 0 nadolol 20 mg tablet 40 mg PO DAILY RF: 0 gabapentin 300 mg Capsule 600 mg PO HS RF: 0 gabapentin 300 mg Capsule 300 mg PO DAILYBL RF: 0 metformin 1,000 mg Tablet 1,000 mg PO BID RF: 0 cyclobenzaprine 10 mg Tablet 10 mg PO HS RF: 0 trazodone 50 mg Tablet 50 mg PO HS RF: 0 potassium chloride 10 mEq Tablet Extended Release 10 meq PO DAILY RF: 0 aspirin [Aspir-81] 81 mg Tablet,Delayed Release (Dr/Ec) 81 mg PO QAM RF: 0 ascorbic acid (vitamin C) [Vitamin C] 500 mg Tablet 500 mg PO DAILY RF: 0 gabapentin 300 mg Capsule 300 mg PO DAILY RF: 0 furosemide [Lasix] 20 mg Tablet 20 mg PO Q2D RF: 0 Lantus Solostar U-100 Insulin 100 unit/mL (3 mL) Insulin Pen 24 unit SUBCUT HS RF: 0 dulaglutide 1.5 mg/0.5 mL Pen Injector 1.5 mg subcut WK RF: 0 ferrous sulfate 325 mg (65 mg iron) Tablet 325 mg PO BID RF: 0 nystatin 100,000 unit/gram powder 1 applic TOPICAL TID RF: 0 albuterol sulfate 2.5 mg /3 mL (0.083 %) solution for nebulization 2.5 mg inhalation Q6H PRN (Reason: Wheezing) RF: 0 Ozempic 1 mg/dose (2 mg/1.5 mL) Pen Injector 1 mg SUBCUT WK RF: 0 levothyroxine [Synthroid] 200 mcg Tablet 200 mcg PO DAILYBB 30 Days Qty: 30 RF: 1 Referrals Referrals: Rajwinder Carter DO [Primary Care Provider] -
[2020-01-15 14:13] LABS: Appearance Urine Cloudy (Clear); Bacteria Urine Automated 4+ (Negative); Bilirubin Urine Negative (Negative); Blood Urine 3+ (Negative); Color Urine Yellow; Epithelial Cell Urine Auto 0-5 /lpf (0-5); Glucose Urine UA Trace (Negative); Ketones Urine Negative (Negative); Leukocyte Esterase Urine 3+ (Negative); Nitrite Urine Negative (Negative); RBC Urine Automated >30 /hpf (0-4); Specific Gravity Urine 1.023 (1.000-1.030); Urobilinogen Urine Negative (Negative); WBC Urine Automated >30 /hpf (0-5)
[2020-01-15 14:30] LABS: Protein Urine 2+ (Negative); Sulfosalicylic Acid Urine Positive (Negative)
--- NOTE | 2020-01-15 14:31 | Electrocardiogram Report ---
Test Reason : Blood Pressure : / mmHG Vent. Rate : 067 BPM Atrial Rate : 067 BPM P-R Int : 214 ms QRS Dur : 096 ms QT Int : 438 ms P-R-T Axes : 050 -05 052 degrees QTc Int : 462 ms Sinus rhythm with 1st degree A-V block Low voltage QRS Possible Old Inferior infarct Diffuse Minor Nonspecific T wave abnormality Borderline ECG When compared with ECG of 23-DEC-2019 16:20, No significant change Confirmed by Jose Ritter ([id number]) on 01/15/2020 2:31:45 PM Referred By: Confirmed By:Jose Ritter
[2020-01-15 14:35] LABS: Hemoglobin 8.9 g/dL (12.0-16.0); Mean Corpuscular Hemoglobin 30.6 pg (25-34); Mean Corpuscular Hgb Conc 29.7 g/dL (32-36); Mean Corpuscular Volume 103.1 fL (80-100); Mean Platelet Volume 12.9 fL (7.4-10.4); Platelet Count 114 K/uL (130-400); RDW Coefficient of Variation 21.4 % (11.5-14.5); Red Blood Count 2.91 M/uL (4.2-5.4); White Blood Count 3.69 K/uL (4.8-10.8)
--- NOTE | 2020-01-15 14:36 | XRay Report ---
XR chest 1V portable CLINICAL HISTORY: 64 years-old Female presenting with chest pain. TECHNIQUE: Portable upright AP view of the chest was obtained. COMPARISON: 12/23/2019. FINDINGS: Atherosclerosis of the aortic arch. Cardiac silhouette enlarged. Mildly low lung volumes. No focal op acity. No large effusion or pneumothorax. Degenerative changes of the thoracic spine. Degenerative ch anges of the glenohumeral joints. Upper abdomen normal. IMPRESSION: 1. Cardiomegaly. No other convincing evidence of acute cardiopulmonary disease. ACT 112: Negative or not required by law. Electronically signed by: Norris Pineda M.D. 01/15/2020 2:35 PM
[2020-01-15 14:45] LABS: INR 1.1 (0.9-1.1); Partial Thromboplastin Ratio 1.1; Partial Thromboplastin Time 29.3 Seconds (21.0-31.0); Prothrombin Time 11.9 Seconds (9.0-12.0)
[2020-01-15 14:51] LABS: Anisocytosis Present; Basophils # (auto) 0.03 K/uL (0-0.2); Basophils % (auto) 0.8 %; Eosinophils # (auto) 0.45 K/uL (0-0.5); Eosinophils % (auto) 12.2 %; Lymphocytes # (auto) 0.72 K/uL (1.2-3.4); Lymphocytes % (auto) 19.5 %; Monocytes # (auto) 0.37 K/uL (0.11-0.59); Neutrophils # (auto) 2.12 K/uL (1.4-6.5); Neutrophils % (auto) 57.5 %; Tear Drop Cells 1+
[2020-01-15 15:04] LABS: Alanine Aminotransferase 25 U/L (12-78); Aspartate Aminotransferase 33 U/L (15-37); BUN Creatinine Ratio 17.4 (10-20); Blood Urea Nitrogen 13 mg/dl (7-18); Calcium 8.5 mg/dl (8.5-10.1); Carbon Dioxide 25 mmol/L (21-32); Chloride 109 mmol/L (98-107); Creatinine Clr Calc Pharmacy 93.5 ml/min; Est GFR (African American) 99.2; Est GFR (Non-African American) 85.6; Glucose 300 mg/dl (70-99); Lipase 65 U/L (73-393); Sodium 141 mmol/L (136-145)
[2020-01-15 15:15] LABS: Albumin Globulin Ratio 0.8 (0.9-2); Alkaline Phosphatase 112 U/L (45-117); Bilirubin,Total 0.5 mg/dl (0.2-1); Globulin 3.9 gm/dl (2.5-4.0); NT Pro B Type Natriuretic Pept 67 pg/ml (0-900); Total Protein 6.9 gm/dl (6.4-8.2); Troponin I < 0.015 ng/ml (0-0.045)
[2020-01-15] MEDS ORDERED: SODIUM CHLORIDE 0.9% 1000ML 1,000 ML IV SCH ×2 (16:00→22:45)
[2020-01-15] MEDS ORDERED: CEFEPIME 2,000 MG/20 ML VIAL IV STA (16:06)
--- NOTE | 2020-01-15 17:36 | History & Physical Report ---
Date of Service January 15, 2020 Assessment & Plan (1) Generalized weakness: (2) UTI (urinary tract infection): This is a 64-year-old female who has significant past medical history of T2DM, HTN, HLD, THAD on bipap, restrictive lung disease, cerebral palsy, wheelchair- bound, Thompson cirrhosis, grade 1 esophageal varices, hypothyroidism, diabetic neuropathy, pancytopenia secondary to cirrhosis, iron deficiency anemia receiving IV Venofer, history of C. difficile who presents to ED secondary to i ll feeling x1 day. In ED patient remained hemodynamically unstable until called for evaluation. She become slightly hypotensive with SBP's in the 80s. She received a 250 mL IVF bolus which improved her blood pressures into the 110s. Lab work notable for chronic anemia of 8.9 and 30.0, WBC 3.69, platelet 114, BUN 13, creatinine 0.74, glucose 300, lactate 2.4, troponin WNL, proBNP WNL, TSH WNL. Urinalysis was obtained via straight catheterization which revealed +3 leukocyte esterase, greater than 30 WBCs and +4 bacteria. Patient previously had been seen in ED approximately 2 weeks ago secondary to UTI. Culture grew out Proteus mirabilis and initially she was placed on Macrobid. Was transitioned to cefdinir and she did complete full course of this. She feels as though she may have not completely cleared the infection. Due to this she was given 2 g of IV cefepime in the ED. Patient does not meet SIRS or sepsis criteria on admission. She did have transient episode of hypotension which resolved with a 250 mL fluid bolus. Sepsis not entirely ruled out pending cultures. admit to telemetry IV ceftriaxone 2g daily, +florastor due to hx of cdiff await blood and urine culture She will have received 1 L of IVF in ED. Monitor response prior to further IV fluid. Renal function is stable. Trend lactic acid Consult PT OT (3) Lactic acidemia: Lactic acid 2.4 with repeat 2.3 pt with chronic elevation in lactic acid, could be due to chronic metformin - hold this she did have episode of transient hypotension while in ED that responded to fluid bolus. Sepsis is not entirely ruled out in setting of likely urinary tract infection. will trend lactic acid (4) Hypoxia: Patient is currently on 2 L of O2 in ED but I am not seeing any documented hypoxia. She does complain of chronic ROCWKELL and wears oxygen at bedtime. Will have staff attempt to wean O2 (5) Chest pain: Patient complained of chest pain prior to arrival that occurred after eating. Initially felt like something was getting stuck but was able to swallow liquids. Chest pain resolved without treatment. Chest pain does not appear to be cardiac in nature. Was not reproducible to palpation. Initial troponin was WNL and EKG revealed no ST or T wave changes. Will cycle troponins for thoroughness. (6) DM type 2 (diabetes mellitus, type 2): Last A1c 6.9 on 11/26/2019 At recent discharge she was to discontinue metformin but I did confirm with pharmacy that she is still taking this Discontinue metformin in light of lactic acidosis Hold Trulicity and Ozempic Lantus/NovoLog per protocol (7) Cirrhosis: 2/2 to THOMPSON no s/sx of hepatic encephalopathy Grade 1 esophageal varcies and portal hypertension gastropathy per EGD on 11/2019 Continue nadolol, hold Lasix in setting of hypotension and acute infection Resume Lasix as able (8) Pancytopenia: Follows hematology Dr. Sanchez Secondary to cirrhosis and splenomegaly Anemia secondary to iron deficiency and is currently receiving IV Venofer, last treatment 01/01 H&H stable at 8.9 and 30.0, platelet 114, WBC 3.69 monitor CBC (9) Obstructive sleep apnea: on CPAP at HS with 2L O2 (10) Dyslipidemia: Continue statin (11) Hypothyroidism: Continue levothyroxine, TSH 2.79 Previous TSH on 12/22 was 37 and levothyroxine was increased from 150 mcg to 200 mcg Close monitoring as outpatient (12) Fibromyalgia: currently not complaining of pain continue gabapentin - also uses this for diabetic neuropathy (13) Asthma: No acute exacerbation continue PRN albuterol (14) Cerebral palsy: Supportive care will consult PT OT (15) Obesity: Encourage lifestyle modifications BMI 57 (16) DVT prophylaxis: SQ Heparin Disposition: Admit to telemetry Follow up: PCP Dr. Manriquez upon discharge Pt was seen and examined in collaboration with Dr. Martinez, please see addendum History of Present Illness Chief Complaint: Ill feeling x 1 day. Primary Care Provider: Rajwinder Carter, DO This is a 64-year-old female who has significant past medical history of T2DM, HTN, HLD, THAD on bipap, restrictive lung disease, cerebral palsy, wheelchair- bound, Thompson cirrhosis, grade 1 esophageal varices, hypothyroidism, diabetic neuropathy, pancytopenia secondary to cirrhosis, iron deficiency anemia receiving IV Venofer, history of C. difficile who presents to ED secondary to ill feeling x1 day. Patient is mostly wheelchair-bound however over the past 24 hours she has spent most of the time in bed. She is overall felt unwell, weak, chilled, dysuria, increased urinary urgency and frequency. He denies any documented fever, sweats, lightheadedness, dizziness, syncope, shortness of breath at rest, nausea, vomiting, abdominal pain. Her last BM was yesterday. Overall her appetite has been waxing and waning but overall not well the past 24 hours. She does have chronic shortness of breath secondary to restrictive lung disease and obesity along with a chronic dry cough. She feels these are unchanged. Does express an episode of chest pain that occurred prior to arrival. She states it occurred immediately after eating lunch and she developed substernal chest pain. Pain was nonradiating, felt like a dull ache, relieved within 1 hour, made worse with eating, denied any associated diaphoresis, n/v, dizziness, sob or palpitations. She lives at home with her , 2 other family members and has a caregiver for 8 hours of the day. She states that she was told she had some blood in her stool per her caregivers but she cannot confirm this. In ED patient remained hemodynamically unstable until called for evaluation. She become slightly hypotensive with SBP's in the 80s. She received a 250 mL IVF bolus which improved her blood pressures into the 110s. Lab work notable for chronic anemia of 8.9 and 30.0, WBC 3.69, platelet 114, BUN 13, creatinine 0.74, glucose 300, lactate 2.4, troponin WNL, proBNP WNL, TSH WNL. Urinalysis was obtained via straight catheterization which revealed +3 leukocyte esterase, greater than 30 WBCs and +4 bacteria. Patient previously had been seen in ED approximately 2 weeks ago secondary to UTI. Culture grew out Proteus mirabilis and initially she was placed on Macrobid. Was transitioned to cefdinir and she did complete full course of this. She feels as though she may have not completely cleared the infection. Due to this she was given 2 g of IV cefepime in the ED. Allergies Allergy/AdvReac Type Severity Reaction Status Date / Time Penicillins Allergy Intermediate Hives Verified 12/29/19 16:29 Home Medications Home Medications Medication Instructions Recorded Confirmed Type Danette Cornellostar U-100 Insulin 24 unit SUBCUT HS 06/16/18 01/15/20 History ascorbic acid (vitamin C) [Vitamin 500 mg PO DAILY 06/16/18 01/15/20 History C] aspirin [Aspir-81] 81 mg PO QAM 06/16/18 01/15/20 History cyclobenzaprine 10 mg PO HS 06/16/18 01/15/20 History dulaglutide 1.5 mg SUBCUT WK 06/16/18 01/15/20 History furosemide [Lasix] 20 mg PO Q2D 06/16/18 01/15/20 History gabapentin 300 mg PO DAILY 06/16/18 01/15/20 History potassium chloride 10 meq PO DAILY 06/16/18 01/15/20 History trazodone 50 mg PO HS 06/16/18 01/15/20 History Centrum Silver 1 tab PO QAM 07/19/18 01/15/20 History escitalopram oxalate 20 mg PO DAILY 07/19/18 01/15/20 History fluticasone propionate [Flonase 2 spray INTRANASAL QAM 07/19/18 01/15/20 History Allergy Relief] ferrous sulfate 325 mg PO BID 02/21/19 01/15/20 History tamsulosin 0.4 mg capsule 0.4 mg PO QAM #30 cap 06/26/19 01/15/20 History albuterol sulfate 2 puff INHALATION Q4H PRN 09/09/19 01/15/20 History atorvastatin 40 mg PO HS 09/09/19 01/15/20 History nadolol 40 mg PO DAILY 09/09/19 01/15/20 History oxybutynin chloride 5 mg PO BID 09/09/19 01/15/20 History pantoprazole 40 mg PO DAILY 09/09/19 01/15/20 History nystatin 1 applic TOPICAL TID 11/20/19 01/15/20 History albuterol sulfate 2.5 mg INHALATION Q6H PRN 11/28/19 01/15/20 History semaglutide [Ozempic] 1 mg SUBCUT WK 11/28/19 01/15/20 History levothyroxine [Synthroid] 200 mcg PO DAILYBB 30 Days #30 tab 12/25/19 01/15/20 Rx gabapentin 300 mg PO DAILYBL 01/15/20 01/15/20 History gabapentin 600 mg PO HS 01/15/20 01/15/20 History metformin 1,000 mg PO BID 01/15/20 01/15/20 History Past Med/Surg History Medical History Acute cystitis (Acute) Ambulatory dysfunction Ambulatory dysfunction (Acute) Anxiety Asthma (Chronic) DOES NOT USE INH. REPORTS USING NEB TREATMENTS BID. Bilateral lower extremity edema (Chronic) Cardiac murmur Cerebral palsy (Chronic) Chest pain (Acute) Chronic back pain Chronic pain (Chronic) Complicated UTI (urinary tract infection) Contusion of knee, right (Acute) Contusion of leg (Acute) Cough CHRONIC PER PT REPORT Depression DM type 2 (diabetes mellitus, type 2) (Chronic) IDDM Dyslipidemia (Chronic) Encounter for pre-operative examination Fall (Acute) Fibromyalgia (Chronic) VIDA (generalized anxiety disorder) (Chronic) GERD (gastroesophageal reflux disease) History of kidney stones History of migraine (Chronic) Hoarseness of voice CHRONIC PER PT REPORT Hypertension Hypothyroidism (Chronic) Major depressive disorder, recurrent, moderate (Chronic) THOMPSON (nonalcoholic steatohepatitis) (Chronic) Obesity (BMI 30-39.9) Obesity, morbid (more than 100 lbs over ideal weight or BMI > 40) (Chronic) Obstructive sleep apnea (Chronic) CPAP + OXYGEN AT 2 LPM @ NIGHT On home oxygen therapy 2 LPM @ NIGHT + CPAP Osteoarthritis (Chronic) Pancreatic cyst Pleurisy (Acute) Poor historian Right ankle sprain (Acute) Right knee sprain (Acute) SOB (shortness of breath) on exertion Urinary catheter dysfunction (Acute) Venous insufficiency (Chronic) VRE (vancomycin resistant enterococcus) culture positive (Acute) Surgical History H/O Achilles tendon repair (Chronic) H/O section (Chronic) H/O wisdom tooth extraction (Chronic) History of Achilles tendon repair History of section History of colonoscopy History of D&C (Chronic) History of dilatation and curettage History of esophagogastroduodenoscopy (EGD) History of tooth extraction Family History (Updated 01/15/20 @ 17:46 by Caron Jacobs PA-C) Father Family history of diabetes mellitus Myocardial infarction, Onset Age: 61 Mother Myocardial infarction, Onset Age: 72 Sister Myocardial infarction Social History Preferred Language: Chinese Communication Ability: Effective Tennis Professional Required: No Beliefs That Will Affect Care: None marital status: Current Living Situation: Spouse and Family Current Living Situation Comment: Lives with , Sister and grandson Other Information That Helps Us Care for You: No Feels Safe at Home: Yes Safety Concerns: Feels Safe At This Time Smoking Status: Never smoker Do You Dip or Chew Tobacco: No ; Second Hand Exposure: No ; Tobacco Cessation Education Requested by Patient: No Hx Alcohol Use: No Hx Substance Use: No Review of Systems Review of Systems: All systems reviewed & are unremarkable except as noted in HPI & below Physical Exam Physical Exam: Constitutional: Morbidly obese, female, pale, vitals as above, NAD, sitting up in bed, pleasant, conversing easily Head: Normocephalic, Atraumatic Eyes: PERRL, conjunctivae normal, anicteric sclerae ENMT: external ear and nose normal, oropharynx normal dry mucous membrane Neck: trachea midline, no thyromegaly normal visual inspection Respiratory: decreased breath sounds at bases secondary to poor inspiratory effort, lungs clear to auscultation, no wheeze, rales, rhonchi. no accessory muscle use Cardiovascular: RRR, 2/6 JOSE noted RUSB, bilateral lymphedema vessels: no JVD or carotid bruit Chest: normal inspection of chest, nontender to palpation Abdomen: Obese, protuberant abdomen, firm, hypoactive bowel sounds, nontender Musculoskeletal: no cyanosis or clubbing, active range of motion to bilateral upper extremities, poor truncal strength, bilateral lower extremity strength 3/5 Skin: no rashes, warm and dry normal turgor Neurologic: PERRL, EOMI, accommodation nl, no face palsy, no dysarthria CN's II-XI intact bilaterally and moves all extremities Psychiatric: A+Ox3, euthymic affect Lymphatic: no cervical or axillary lymphadenopathy : Catheter in place Results & Data Results & Data ([facility]) Vital Signs (Past 12 Hours) Vital Signs Temp Pulse Resp BP Pulse Ox 01/15/20 16:42 63 15 109/66 97 01/15/20 16:18 70 15 85/63 L 95 01/15/20 16:00 63 15 92/61 L 95 01/15/20 15:44 63 12 110/80 95 01/15/20 15:00 67 15 93 01/15/20 14:06 96 01/15/20 13:21 37.1 C 70 18 106/71 96 Laboratory Results Short CBC 01/15/20 01/15/20 Range/Units 14:23 14:23 WBC 3.69 L (4.8-10.8) K/uL Hgb 8.9 L (12.0-16.0) g/dL Hct 30.0 L (37-47) % Plt Count 114 L (130-400) K/uL Lactate 2.4 H* (0.4-2.0) mmol/L BMP 01/15/20 14:23 Sodium 141 Potassium 4.0 Chloride 109 H Carbon Dioxide 25 BUN 13 Creatinine 0.74 Glucose 300 H Calcium 8.5 Cardiac Enzymes 01/15/20 Range/Units 14:23 Troponin I < 0.015 (0-0.045) ng/ml Liver Function 01/15/20 Range/Units 14:23 Total Bilirubin 0.5 (0.2-1) mg/dl AST 33 (15-37) U/L ALT 25 (12-78) U/L Alkaline Phosphatase 112 (45-117) U/L Albumin 3.0 L (3.4-5.0) gm/dl Urine 01/15/20 Range/Units 13:36 Urine Color Yellow Urine Appearance Cloudy A (Clear) Urine pH 8.0 H (4.5-7.5) Ur Specific [place] 1.023 (1.000-1.030) Urine Protein 2+ H (Negative) Urine Glucose (UA) Trace H (Negative) Diagnostic Findings CXR: IMPRESSION: 1. Cardiomegaly. No other convincing evidence of acute cardiopulmonary disease. Medications Administered Sodium Chloride (Nss 1000ml) 1,000 mls @ 500 mls/hr IV .Q2H KRISTY Stop: 01/15/20 17:59 Last Admin: 01/15/20 15:53 Dose: 250 mls/hr Documented by: [id number] Discontinued Medications Cefepime HCl (Maxipime) 2,000 mg in 20 mls @ 5 mls/min IV NOW STA; Protocol Stop: 01/15/20 16:09 Last Admin: 01/15/20 16:10 Dose: 5 mls/min Documented by: [id number] ECG Rate (beats per minute): 67 Rhythm: normal sinus Findings: + 1st degree AV block Code Status & VTE Plan Code Status Full Code VTE Prophylaxis Plan VTE Prophylaxis will be ordered: Yes Supervising Physician Co-Signing Physician Notes Patient was seen and examined by me, care coordinated with Caron Jacobs PA-C. Please see her documentation above for further detail. Patient is a 64-year-old female with complex medical history and frequent hospitalizations, PMH significant for T2DM, HTN, HLD, THAD on bipap, restrictive lung disease, cerebral palsy, wheelchair-bound, Thompson cirrhosis, grade 1 esophageal varices, hypothyroidism, pancytopenia secondary to cirrhosis, iron deficiency anemia receiving IV Venofer, history of C. difficile who presents to ED secondary to ill feeling x1 day. Patient reports dysuria and urinary frequency, stating she has to go about every 15 minutes to use bathroom. Notably she was recently in the emergency room, diagnosed with cystitis started on Macrobid, and then switched to cefdinir when sensitivities were available. She reportedly completed the treatment however patient is a poor historian. She does state that she was feeling better initially and then not completely recovered. She also reports having chest pain day prior to admission, and then a mild chest pain this morning however she also associates this with eating. Patient recently had EGD done in November 2019, (at that time she was diagnosed with grade 1 varices). Currently denies any chest pain, reports chronic cough, no increased cough or increased sputum production. She does report having chills for past couple of days. Patient was recently hospitalized, in the beginning of December she was diagnosed with pneumonia. She was tested for COVID 19 on December 22, at that time test was negative. Chest x-ray obtained in the ED today unremarkable. EKG shows normal sinus rhythm with first-degree AV block, troponin negative. Repeat troponin pending. Patient has a history of chronic lactic acid acidosis, secondary to liver disease. Lactic acid 2.4, repeat lactic acid pending. Patient is currently sitting up in bed, in no acute distress, using 2 liters of supplemental oxygen even though there is no recorded hypoxia. At home she uses 2 L at night, with CPAP/BiPAP for THAD. Patient is morbidly obese, wheelchair- bound. There is no facial asymmetry, her speech is slow but fluent, she is alert and oriented. Lungs are overall clear to auscultation bilaterally, without any significant wheezing, rhonchi or crackles, however noted poor respiratory effort. Heart sounds regular. Abdomen is somewhat distended, but overall soft, bowel sounds appreciated, no tenderness to palpation in any quadrant. She has chronic lower extremity edema and states that she takes furosemide every other day for that. On my physical exam her right lower extremity seems to be more edematous than the left 1. We will obtain right lower extremity Doppler to rule out a DVT. Pt is unfortunately poor historian, states that her medications are sent from pharmacy and she cannot 100% confirm which ones she is taking. On her last discharge from hospital, metformin was discontinued by attending physician, however after further investigation it seems like patient continues to take metformin. Levothyroxine was increased to 200 from 150, TSH today within normal limits (2.79). At the last discharge she was also found somewhat hypomagnesemic and started on magnesium supplement for 10 days. Current magnesium is 2.0. She is pancytopenic, with hemoglobin 8.9, white blood cell count 3.7, platelets 114, which is overall better than her baseline. Blood cultures and urine cultures pending. Patient received cefepime in the emergency room, will continue with ceftriaxone for now given sensitivities from previous urine culture. Will adjust antibiotics as needed. MD Nicolasa (1) DM type 2 (diabetes mellitus, type 2) Diabetes mellitus complication status: with other specified complication Diabetes mellitus retirement insulin use: unspecified retirement insulin use status Qualified Code(s): E11.69 - Type 2 diabetes mellitus with other specified complication (2) Cerebral palsy Cerebral palsy type: unspecified type Qualified Code(s): G80.9 - Cerebral palsy, unspecified (3) Hypothyroidism Hypothyroidism type: unspecified Qualified Code(s): E03.9 - Hypothyroidism, unspecified
[2020-01-15] MEDS ORDERED: CARBOHYDRATES FOR HYPOGLYCEMIA PO PRN (18:28)
[2020-01-15] MEDS ORDERED: GLUCOSE 10 TABS/TUBE PO PRN (18:28)
[2020-01-15] MEDS ORDERED: GLUCOSE 40% GEL 15 GM TUBE PO PRN (18:28)
[2020-01-15] MEDS ORDERED: ALBUTEROL 0.083% NEBU SOLN 3 ML VIAL NEB PRN (18:28)
[2020-01-15] MEDS ORDERED: ONDANSETRON INJ 2 MG/ML 2 ML VIAL IV PRN (18:28)
[2020-01-15] MEDS ORDERED: DEXTROSE 50% 50 ML SYRINGE IV PRN (18:28)
[2020-01-15] MEDS ORDERED: ALUMINUM/MAGNESIUM SUSP 30 ML UDC PO PRN (18:28)
[2020-01-15] MEDS ORDERED: GLUCAGON FOR INJ 1 MG VIAL SQ PRN (18:28)
[2020-01-15] MEDS ORDERED: ACETAMINOPHEN 325 MG TAB PO PRN (18:28)
[2020-01-15] MEDS ORDERED: SODIUM CHLORIDE 0.9% 500 ML IV ONE (21:15)
[2020-01-15] MEDS: TRAZODONE HCL 50 MG TAB PO SCH (21:53)
[2020-01-15] MEDS: OXYBUTYNIN CHLORIDE 5 MG TAB PO SCH (21:53)
[2020-01-15] MEDS: FERROUS SULFATE 325 MG TAB PO SCH (21:54)
[2020-01-15] MEDS: GABAPENTIN 300 MG CAP PO SCH (21:55)
[2020-01-15] MEDS: ATORVASTATIN 40 MG TAB PO SCH (21:55)
[2020-01-15] MEDS: INSULIN ASPART 100 UNITS/ML 3 ML PEN SC SCH (21:56)
[2020-01-15] MEDS: HEPARIN SOD 5,000 UNIT/0.5 ML VIAL SQ SCH (21:57)
[2020-01-15] MEDS: cefTRIAXone SODIUM 2,000 MG in DEXTROSE 5% 50 ML IV SCH (21:58)
--- NOTE | 2020-01-15 22:54 | Ultrasound Report ---
US venous doppler LE RT CLINICAL HISTORY: RLE edema PAIN. EDEMA. COMPARISON STUDY: No previous studies for comparison. FINDINGS: Real-time and color flow Doppler imaging were performed. Flow was seen within the femoral, popliteal and calf veins with no intraluminal thrombus demonstrated. The saphenous vein is patent. IMPRESSION: No evidence of deep venous thrombosis. ACT 112: Negative or not required by law. The above report was generated using voice recognition software. It may contain grammatical, syntax or spelling errors. Electronically signed by: Carter Robison M.D. 01/15/2020 10:52 PM
[2020-01-15] MEDS: INSULIN GLARGINE SOLOSTAR 100 UNITS/ML 3 ML PEN SC SCH (23:51)
[2020-01-16 02:21] LABS: Albumin Level 2.8 gm/dl (3.4-5.0); BUN Creatinine Ratio 17.5 (10-20); Calcium 8.1 mg/dl (8.5-10.1); Creatinine Clr Calc Pharmacy 103.3 ml/min; Est GFR (African American) 107.7; Est GFR (Non-African American) 92.9; Potassium 3.8 mmol/L (3.5-5.1)
[2020-01-16 02:24] LABS: Albumin Globulin Ratio 0.7 (0.9-2); Bilirubin,Total 0.3 mg/dl (0.2-1); Globulin 3.9 gm/dl (2.5-4.0); Total Protein 6.7 gm/dl (6.4-8.2)
[2020-01-16 02:35] LABS: Hematocrit (blood only) 27.3 % (37-47); Hemoglobin 8.3 g/dL (12.0-16.0); Mean Corpuscular Hemoglobin 31.3 pg (25-34); Mean Corpuscular Hgb Conc 30.4 g/dL (32-36); Mean Platelet Volume 12.5 fL (7.4-10.4); Nucleated RBC # (auto) 0.02 K/uL (0-0); Nucleated RBC % (auto) 0.4 %; Platelet Count 106 K/uL (130-400); Red Blood Count 2.65 M/uL (4.2-5.4); White Blood Count 3.91 K/uL (4.8-10.8)
[2020-01-16 02:38] LABS: Anisocytosis Present; Basophilic Stippling 1+; Basophils # (auto) 0.02 K/uL (0-0.2); Basophils % (auto) 0.5 %; Eosinophils # (auto) 0.45 K/uL (0-0.5); Eosinophils % (auto) 11.5 %; Lymphocytes # (auto) 0.84 K/uL (1.2-3.4); Lymphocytes % (auto) 21.5 %; Monocytes # (auto) 0.32 K/uL (0.11-0.59); Monocytes % (auto) 8.2 %; Neutrophils # (auto) 2.28 K/uL (1.4-6.5); Neutrophils % (auto) 58.3 %; Pappenheimer Bodies 1+; Polychromasia 1+; Tear Drop Cells 1+
[2020-01-16] MEDS ORDERED: SODIUM CHLORIDE 0.9% 1000ML 1,000 ML IV ONE (04:16)
[2020-01-16] MEDS: LEVOTHYROXINE SODIUM 200 MCG TABLET PO SCH (06:20)
[2020-01-16] MEDS: HEPARIN SOD 5,000 UNIT/0.5 ML VIAL SQ SCH ×3 (06:20→21:13)
[2020-01-16] MEDS: TAMSULOSIN HCL 0.4 MG CAP PO SCH (08:16)
[2020-01-16] MEDS: OXYBUTYNIN CHLORIDE 5 MG TAB PO SCH ×2 (08:16→21:12)
[2020-01-16] MEDS: ASPIRIN 81 MG ECTAB PO SCH (08:16)
[2020-01-16] MEDS: nadoloL 40 MG TAB PO SCH (08:16)
[2020-01-16] MEDS: INSULIN GLARGINE SOLOSTAR 100 UNITS/ML 3 ML PEN SC SCH ×2 (08:17→21:13)
[2020-01-16] MEDS: POTASSIUM CHLORIDE 10 MEQ TABCR PO SCH (08:17)
[2020-01-16] MEDS: FLUTICASONE PROPIONATE NA SPR 16 GM BTL SCH (08:17)
[2020-01-16] MEDS: SACCHAROMYCES BOULARDII 250 MG CAP PO SCH (08:17)
[2020-01-16] MEDS: GABAPENTIN 300 MG CAP PO SCH ×3 (08:18→21:12)
[2020-01-16] MEDS: ESCITALOPRAM OXALATE 20 MG TAB PO SCH (08:18)
[2020-01-16] MEDS: ASCORBIC ACID 500 MG TAB PO SCH (08:18)
[2020-01-16] MEDS: PANTOprazole 40 MG TAB PO SCH (08:18)
[2020-01-16] MEDS: INSULIN ASPART 100 UNITS/ML 3 ML PEN SC SCH ×4 (08:21→21:14)
[2020-01-16] MEDS: FERROUS SULFATE 325 MG TAB PO SCH ×2 (10:23→21:12)
[2020-01-16] MEDS ORDERED: GABAPENTIN 300 MG CAP PO SCH (10:30)
--- NOTE | 2020-01-16 15:56 | Hospitalist Progress Note ---
Date of Service January 16, 2020 Assessment & Plan (1) Generalized weakness: (2) UTI (urinary tract infection): Patient is a 64 yr female with H/O DM II, HTN, HLD, THAD on bipap, restrictive lung disease, cerebral palsy, wheelchair-bound, Ng cirrhosis, grade 1 esophageal varices, hypothyroidism, diabetic neuropathy, pancytopenia secondary to cirrhosis, iron deficiency anemia receiving IV Venofer, history of C. difficile who presents to ED secondary to ill feeling x1 day. Urinary Tract Infection No signs of sepsis Received IV fluids for transient Hypotension Blood Cx:Pending Urine Cx:Proteus species Continue Rocephin Day#2 (3) Lactic acidemia: Lactic acid 2.4>>2.3>>1.8 Chronic elevation in lactic acid, could be due to Metformin/Liver disease Hold Metformin for now (4) Hypoxia: Chronic Oxygen Dependency On 2 L at bedtime. (5) Chest pain: Chest Pain resolved Troponin X2: Negative Patient believes it is likely due to anxiety EKG: No significant change from prior EKG (6) DM type 2 (diabetes mellitus, type 2): Last A1c 6.9 on 11/26/2019 Recent discharge:Planned to discontinue metformin but patient is still taking Discontinue metformin Hold Trulicity and Ozempic Lantus/NovoLog per protocol Monitor BGs (7) Cirrhosis: Secondary to NG No signs of hepatic encephalopathy Grade 1 esophageal varicies and portal hypertension gastropathy per EGD on 11/2019 Continue nadolol Hold Lasix in setting of hypotension Resume Lasix as able (8) Pancytopenia: Follows hematology Dr. Sanchez Secondary to cirrhosis and splenomegaly Anemia secondary to iron deficiency and is currently receiving IV Venofer, last treatment 01/01 monitor CBC (9) Obstructive sleep apnea: on CPAP at HS with 2L O2 (10) Dyslipidemia: Continue statin (11) Hypothyroidism: Continue levothyroxine, TSH 2.79 Previous TSH on 12/22 was 37 and levothyroxine was increased from 150 mcg to 200 mcg Close monitoring as outpatient (12) Fibromyalgia: continue gabapentin (13) Asthma: No acute exacerbation continue PRN albuterol (14) Cerebral palsy: Supportive care (15) Obesity: Encourage lifestyle modifications BMI 57 (16) DVT prophylaxis: SQ Heparin Disposition: Expect to discharge home when stable Admission and Anticipated Discharge Date Admission Date: January 15, 2020 Subjective Patient is seen and examined at bedside Dysuria, urinary frequency improved Denies hematuria, abdominal pain, nausea, dizziness, chest pain, shortness of breath Urine culture growing Proteus Offers no other complaints Review of Systems Review of Systems: All systems reviewed & are unremarkable except as noted in HPI & below Physical Exam 2 Physical Exam: Physical Exam: Vitals signs as noted above General Appearance:Morbidly Obese, no apparent distress Head: normocephalic, Atraumatic Eyes: normal inspection, EOMI Neck: supple, Trachea midline Respiratory/Chest: Decreased breath sounds, CTA Cardiovascular: S1, S2, No murmur Abdomen/GI:Soft, Non tender, Bowel sounds present Extremities/Musculoskelatal:normal inspection, mild LE edema Neurologic/Psych:grossly no focal neurological deficits Skin: normal color, warm Results & Data Results & Data ([facility]) Vital Signs (Past 12 Hours) Vital Signs Temp Pulse Pulse Resp BP Pulse Ox 01/16/20 15:33 36.8 C 68 18 117/70 90 01/16/20 11:59 37.1 C 69 20 103/54 L 92 01/16/20 08:13 37.0 C 72 18 115/67 94 01/16/20 08:00 63 Laboratory Results Short CBC 01/16/20 Range/Units 01:47 WBC 3.91 L (4.8-10.8) K/uL Hgb 8.3 L (12.0-16.0) g/dL Hct 27.3 L (37-47) % Plt Count 106 L (130-400) K/uL BMP 01/16/20 01:47 Sodium 143 Potassium 3.8 Chloride 114 H Carbon Dioxide 26 BUN 12 Creatinine 0.67 Glucose 168 H Calcium 8.1 L Cardiac Enzymes 01/15/20 Range/Units 19:09 Troponin I < 0.015 (0-0.045) ng/ml Liver Function 01/16/20 Range/Units 01:47 Total Bilirubin 0.3 (0.2-1) mg/dl AST 30 (15-37) U/L ALT 23 (12-78) U/L Alkaline Phosphatase 104 (45-117) U/L Albumin 2.8 L (3.4-5.0) gm/dl (1) DM type 2 (diabetes mellitus, type 2) Diabetes mellitus complication status: with other specified complication Diabetes mellitus alf insulin use: unspecified alf insulin use status Qualified Code(s): E11.69 - Type 2 diabetes mellitus with other specifi ed complication (2) Hypothyroidism Hypothyroidism type: unspecified Qualified Code(s): E03.9 - Hypothyroidism, unspecified (3) Cerebral palsy Cerebral palsy type: unspecified type Qualified Code(s): G80.9 - Cerebral palsy, unspecified
[2020-01-16] MEDS: POLYETHYLENE (MIRALAX) 17 GM PACK PO PRN (17:44)
[2020-01-16] MEDS: cefTRIAXone SODIUM 2,000 MG in DEXTROSE 5% 50 ML IV SCH (21:06)
[2020-01-16] MEDS: ATORVASTATIN 40 MG TAB PO SCH (21:12)
[2020-01-16] MEDS: TRAZODONE HCL 50 MG TAB PO SCH (21:12)
[2020-01-17 05:38] LABS: Hematocrit (blood only) 28.7 % (37-47); Hemoglobin 8.6 g/dL (12.0-16.0); Mean Corpuscular Volume 103.6 fL (80-100); RDW Coefficient of Variation 21.4 % (11.5-14.5); RDW Standard Deviation 81.2 fL (36.4-46.3); Red Blood Count 2.77 M/uL (4.2-5.4); White Blood Count 3.53 K/uL (4.8-10.8)
[2020-01-17 05:57] LABS: BUN Creatinine Ratio 18.7 (10-20); Calcium 8.5 mg/dl (8.5-10.1); Creatinine Clr Calc Pharmacy 108.5 ml/min; Est GFR (African American) 110.4; Est GFR (Non-African American) 95.3; Magnesium 1.9 mg/dl (1.8-2.4); Potassium 3.8 mmol/L (3.5-5.1)
[2020-01-17] MEDS: LEVOTHYROXINE SODIUM 200 MCG TABLET PO SCH (06:03)
[2020-01-17] MEDS: HEPARIN SOD 5,000 UNIT/0.5 ML VIAL SQ SCH ×3 (06:03→20:44)
[2020-01-17 06:09] LABS: Mean Platelet Volume 13.8 fL (7.4-10.4); Platelet Count 117 K/uL (130-400); Platelet Estimate Decreased (Normal)
[2020-01-17] MEDS: INSULIN ASPART 100 UNITS/ML 3 ML PEN SC SCH ×4 (08:37→20:44)
[2020-01-17] MEDS: INSULIN GLARGINE SOLOSTAR 100 UNITS/ML 3 ML PEN SC SCH ×2 (08:38→20:41)
[2020-01-17] MEDS: POTASSIUM CHLORIDE 10 MEQ TABCR PO SCH (08:40)
[2020-01-17] MEDS: OXYBUTYNIN CHLORIDE 5 MG TAB PO SCH ×2 (08:40→20:40)
[2020-01-17] MEDS: FLUTICASONE PROPIONATE NA SPR 16 GM BTL SCH (08:40)
[2020-01-17] MEDS: ASPIRIN 81 MG ECTAB PO SCH (08:40)
[2020-01-17] MEDS: ESCITALOPRAM OXALATE 20 MG TAB PO SCH (08:40)
[2020-01-17] MEDS: PANTOprazole 40 MG TAB PO SCH (08:40)
[2020-01-17] MEDS: ASCORBIC ACID 500 MG TAB PO SCH (08:40)
[2020-01-17] MEDS: TAMSULOSIN HCL 0.4 MG CAP PO SCH (08:40)
[2020-01-17] MEDS: GABAPENTIN 300 MG CAP PO SCH ×3 (08:41→20:41)
[2020-01-17] MEDS: FERROUS SULFATE 325 MG TAB PO SCH ×2 (08:41→20:42)
[2020-01-17] MEDS: SACCHAROMYCES BOULARDII 250 MG CAP PO SCH (08:41)
[2020-01-17] MEDS: nadoloL 40 MG TAB PO SCH (08:41)
--- NOTE | 2020-01-17 14:09 | Hospitalist Progress Note ---
Date of Service January 17, 2020 Assessment & Plan (1) Generalized weakness: (2) UTI (urinary tract infection): Patient is a 64 yr female with H/O DM II, HTN, HLD, THAD on bipap, restrictive lung disease, cerebral palsy, wheelchair-bound, Ng cirrhosis, grade 1 esophageal varices, hypothyroidism, diabetic neuropathy, pancytopenia secondary to cirrhosis, iron deficiency anemia receiving IV Venofer, history of C. difficile who presents to ED secondary to ill feeling x1 day. Complicated Urinary Tract Infection H/O Nephrolithiasis No signs of sepsis Received IV fluids for transient Hypotension Blood Cx: No growth to date Urine Cx:Proteus mirabilis Continue Rocephin Day#3 Discontinue Cline cath Needs prolonged course of Abx given Nephrolithiasis/persistence despite treatment May benefit from Urology evaluation as outpatient (3) Lactic acidemia: Lactic acid 2.4>>2.3>>1.8 Chronic elevation in lactic acid, could be due to Metformin/Liver disease Metformin discontinued on prior admission (4) Hypoxia: Chronic Oxygen Dependency On 2 L at bedtime. (5) Chest pain: Chest Pain resolved Troponin X2: Negative Patient believes it is likely due to anxiety EKG: No significant change from prior EKG (6) DM type 2 (diabetes mellitus, type 2): Last A1c 6.9 on 11/26/2019 Recent discharge:Planned to discontinue metformin but patient is still taking Discontinue metformin upon discharge as well Hold Trulicity and Ozempic Lantus/NovoLog per protocol Monitor BGs (7) Cirrhosis: Secondary to NG No signs of hepatic encephalopathy Grade 1 esophageal varices and portal hypertension gastropathy per EGD on 11/2019 Continue nadolol Resume Lasix (8) Pancytopenia: Follows hematology Dr. Sanchez Secondary to cirrhosis and splenomegaly Anemia secondary to iron deficiency and is currently receiving IV Venofer, last treatment 01/01 monitor CBC (9) Obstructive sleep apnea: on CPAP at HS with 2L O2 (10) Dyslipidemia: Continue statin (11) Hypothyroidism: Continue levothyroxine, TSH 2.79 Previous TSH on 12/22 was 37 and levothyroxine was increased from 150 mcg to 200 mcg Close monitoring as outpatient (12) Fibromyalgia: continue gabapentin (13) Asthma: No acute exacerbation continue PRN albuterol (14) Cerebral palsy: Supportive care (15) Obesity: Encourage lifestyle modifications BMI 57 (16) DVT prophylaxis: SQ Heparin Disposition: Bedbound/Wheelchair bound at baseline Expect to discharge home when stable Admission and Anticipated Discharge Date Admission Date: January 15, 2020 Subjective Patient is seen and examined at bedside No new complaints Dysuria, urinary frequency resolved Denies hematuria, abdominal pain, nausea, dizziness, chest pain, SOB Eager to get discharged Review of Systems Review of Systems: All systems reviewed & are unremarkable except as noted in HPI & below Physical Exam Physical Exam: Physical Exam: Vitals signs as noted above General Appearance:Morbidly Obese, no apparent distress Head: normocephalic, Atraumatic Eyes: normal inspection, EOMI Neck: supple, Trachea midline Respiratory/Chest: Decreased breath sounds, CTA Cardiovascular: S1, S2, No murmur Abdomen/GI:Soft, Non tender, Bowel sounds present Extremities/Musculoskelatal:normal inspection, mild LE edema Neurologic/Psych:grossly no focal neurological deficits Skin: normal color, warm Results & Data Results & Data ([facility]) Vital Signs (Past 12 Hours) Vital Signs Temp Pulse Pulse Pulse Resp BP Pulse Ox 01/17/20 11:23 36.7 C 65 20 112/70 90 01/17/20 09:56 63 01/17/20 08:35 65 01/17/20 08:00 36.8 C 60 20 101/62 93 01/17/20 05:18 68 01/17/20 04:00 36.6 C 60 17 99/63 L 94 01/17/20 03:17 60 17 93 Laboratory Results Short CBC 01/17/20 Range/Units 04:19 WBC 3.53 L (4.8-10.8) K/uL Hgb 8.6 L (12.0-16.0) g/dL Hct 28.7 L (37-47) % Plt Count 117 L (130-400) K/uL BMP 01/17/20 04:19 Sodium 144 Potassium 3.8 Chloride 111 H Carbon Dioxide 27 BUN 12 Creatinine 0.62 Glucose 132 H Calcium 8.5 (1) DM type 2 (diabetes mellitus, type 2) Diabetes mellitus complication status: with other specified complication Diabetes mellitus half-way insulin use: unspecified half-way insulin use status Qualified Code(s): E11.69 - Type 2 diabetes mellitus with other specified complication (2) Cerebral palsy Cerebral palsy type: unspecified type Qualified Code(s): G80.9 - Cerebral palsy, unspecified (3) Hypothyroidism Hypothyroidism type: unspecified Qualified Code(s): E03.9 - Hypothyroidism, unspecified
[2020-01-17] MEDS ORDERED: FUROSEMIDE 20 MG TAB PO SCH (16:00)
[2020-01-17] MEDS: ATORVASTATIN 40 MG TAB PO SCH (20:41)
[2020-01-17] MEDS: TRAZODONE HCL 50 MG TAB PO SCH (20:42)
[2020-01-17] MEDS: cefTRIAXone SODIUM 2,000 MG in DEXTROSE 5% 50 ML IV SCH (22:01)
[2020-01-18] MEDS: HEPARIN SOD 5,000 UNIT/0.5 ML VIAL SQ SCH ×2 (05:34→14:16)
[2020-01-18] MEDS: LEVOTHYROXINE SODIUM 200 MCG TABLET PO SCH (05:34)
[2020-01-18 06:26] LABS: BUN Creatinine Ratio 17.8 (10-20); Calcium 8.2 mg/dl (8.5-10.1); Creatinine Clr Calc Pharmacy 97.1 ml/min; Est GFR (African American) 106.1; Est GFR (Non-African American) 91.6; Potassium 3.4 mmol/L (3.5-5.1)
[2020-01-18] MEDS: POTASSIUM CHLORIDE 10 MEQ TABCR PO SCH (08:00)
[2020-01-18] MEDS: ASPIRIN 81 MG ECTAB PO SCH (08:00)
[2020-01-18] MEDS: PANTOprazole 40 MG TAB PO SCH (08:00)
[2020-01-18] MEDS: FERROUS SULFATE 325 MG TAB PO SCH ×2 (08:01→21:03)
[2020-01-18] MEDS: TAMSULOSIN HCL 0.4 MG CAP PO SCH (08:01)
[2020-01-18] MEDS: GABAPENTIN 300 MG CAP PO SCH ×3 (08:01→21:03)
[2020-01-18] MEDS: FLUTICASONE PROPIONATE NA SPR 16 GM BTL SCH (08:01)
[2020-01-18] MEDS: nadoloL 40 MG TAB PO SCH (08:01)
[2020-01-18] MEDS: SACCHAROMYCES BOULARDII 250 MG CAP PO SCH (08:01)
[2020-01-18] MEDS: ASCORBIC ACID 500 MG TAB PO SCH (08:01)
[2020-01-18] MEDS: OXYBUTYNIN CHLORIDE 5 MG TAB PO SCH ×2 (08:01→21:04)
[2020-01-18] MEDS: ESCITALOPRAM OXALATE 20 MG TAB PO SCH (08:01)
[2020-01-18] MEDS: INSULIN ASPART 100 UNITS/ML 3 ML PEN SC SCH ×3 (08:04→17:18)
[2020-01-18] MEDS: INSULIN GLARGINE SOLOSTAR 100 UNITS/ML 3 ML PEN SC SCH (08:04)
[2020-01-18] MEDS ORDERED: POTASSIUM CHLORIDE 20 MEQ TABCR PO STA (09:27)
[2020-01-18] MEDS: POLYETHYLENE (MIRALAX) 17 GM PACK PO PRN (11:17)
[2020-01-18] MEDS ORDERED: DOCUSATE SODIUM/SENNA 50/8.6MG TAB PO PRN ×2 (12:13→17:03)
--- NOTE | 2020-01-18 12:51 | XRay Report ---
XR KUB/Abdomen 1 view CLINICAL HISTORY: 64 years-old Female presenting with Abdominal pain. TECHNIQUE: Single supine view of the abdomen was obtained. COMPARISON: 07/28/[address] from 09/09/2019. FINDINGS: Distention of the stomach. Moderate stool burden throughout the colon. No evidence of bowel obstructi on. No gross pneumoperitoneum align for supine technique. Allowing for bowel gas and stool, no calcifications to suggest nephrolithiasis. Degenerative changes of the spine. Osteopenia may be present. Lung bases clear. IMPRESSION: 1. Moderate diffuse stool burden suggests constipation. No bowel obstruction is apparent. ACT 112: Negative or not required by law. Electronically signed by: Norris Pineda M.D. 01/18/2020 12:50 PM
[2020-01-18] MEDS: POTASSIUM CHLORIDE 10 MEQ in SODIUM CHLORIDE 0.9% 1000ML 1,000 ML IV SCH (17:56)
--- NOTE | 2020-01-18 17:58 | Hospitalist Progress Note ---
Date of Service January 18, 2020 Assessment & Plan (1) Generalized weakness: (2) UTI (urinary tract infection): Patient is a 64 yr female with H/O DM II, HTN, HLD, THAD on bipap, restrictive lung disease, cerebral palsy, wheelchair-bound, Ng cirrhosis, grade 1 esophageal varices, hypothyroidism, diabetic neuropathy, pancytopenia secondary to cirrhosis, iron deficiency anemia receiving IV Venofer, history of C. difficile who presents to ED secondary to ill feeling x1 day. Complicated Urinary Tract Infection H/O Nephrolithiasis No signs of sepsis Received IV fluids for transient Hypotension Blood Cx: No growth to date Urine Cx:Proteus mirabilis Continue Rocephin Day#4 Discontinue Cline cath Needs prolonged course of Abx given Nephrolithiasis/persistence despite treatment May benefit from Urology evaluation as outpatient Melena: H/O Grade I Esophageal varices and portal hypertension gastropathy Hold aspirin Continue IV Protonix Monitor H&H Gentle IV fluids N.p.o. for now GI consulted for input (3) Lactic acidemia: Lactic acid 2.4>>2.3>>1.8 Chronic elevation in lactic acid, could be due to Metformin/Liver disease Metformin discontinued on prior admission (4) Hypoxia: Chronic Oxygen Dependency On 2 L at bedtime. (5) Chest pain: Chest Pain resolved Troponin X2: Negative Patient believes it is likely due to anxiety EKG: No significant change from prior EKG (6) DM type 2 (diabetes mellitus, type 2): Last A1c 6.9 on 11/26/2019 Recent discharge:Planned to discontinue metformin but patient is still taking Discontinue metformin upon discharge as well Hold Trulicity and Ozempic Lantus/NovoLog per protocol Monitor BGs (7) Cirrhosis: Secondary to NG No signs of hepatic encephalopathy Grade I Esophageal varices and portal hypertension gastropathy per EGD on 11/2019 Continue nadolol Resume Lasix as able (8) Pancytopenia: Follows hematology Dr. Sanchez Secondary to cirrhosis and splenomegaly Anemia secondary to iron deficiency and is currently receiving IV Venofer, last treatment 01/01 monitor CBC (9) Obstructive sleep apnea: on CPAP at HS with 2L O2 (10) Dyslipidemia: Continue statin (11) Hypothyroidism: Continue levothyroxine, TSH 2.79 Previous TSH on 12/22 was 37 and levothyroxine was increased from 150 mcg to 200 mcg Close monitoring as outpatient (12) Fibromyalgia: continue gabapentin (13) Asthma: No acute exacerbation continue PRN albuterol (14) Cerebral palsy: Supportive care (15) Obesity: Encourage lifestyle modifications BMI 57 (16) DVT prophylaxis: SCDs Re:Melena Disposition: Bedbound/Wheelchair bound at baseline Expect to discharge home when stable Admission and Anticipated Discharge Date Admission Date: January 15, 2020 Subjective Patient is seen and examined at bedside Reports constipation and mild abdominal discomfort RN noted patient to have black-colored stool Patient offers no other complaints Review of Systems Review of Systems: All systems reviewed & are unremarkable except as noted in HPI & below Physical Exam Physical Exam: Physical Exam: Vitals signs as noted above General Appearance:Morbidly Obese, no apparent distress Head: normocephalic, Atraumatic Eyes: normal inspection, EOMI Neck: supple, Trachea midline Respiratory/Chest: Decreased breath sounds, CTA Cardiovascular: S1, S2, No murmur Abdomen/GI:Soft, Non tender, Bowel sounds present Extremities/Musculoskelatal:normal inspection, mild LE edema Neurologic/Psych:grossly no focal neurological deficits Skin: normal color, warm Results & Data Results & Data ([facility]) Vital Signs (Past 12 Hours) Vital Signs Temp Pulse Pulse Resp BP Pulse Ox 01/18/20 17:41 66 01/18/20 15:17 36.7 C 68 22 122/71 92 01/18/20 12:25 36.7 C 64 20 99/65 L 91 01/18/20 07:05 36.6 C 65 18 93/62 L 90 Laboratory Results [facility] 01/18/20 05:36 Sodium 142 Potassium 3.4 L Chloride 109 H Carbon Dioxide 29 BUN 12 Creatinine 0.70 Glucose 150 H Calcium 8.2 L (1) DM type 2 (diabetes mellitus, type 2) Diabetes mellitus complication status: with other specified complication 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
[2020-01-18 20:12] LABS: Hematocrit (blood only) 27.8 % (37-47); Hemoglobin 8.5 g/dL (12.0-16.0)
[2020-01-18] MEDS ORDERED: DOCUSATE SODIUM/SENNA 50/8.6MG TAB PO SCH (21:00)
[2020-01-18] MEDS: PANTOprazole 40 MG in SYRINGE 0 ML IV SCH (21:02)
[2020-01-18] MEDS: TRAZODONE HCL 50 MG TAB PO SCH (21:05)
[2020-01-18] MEDS: cefTRIAXone SODIUM 2,000 MG in DEXTROSE 5% 50 ML IV SCH (21:22)
[2020-01-19] MEDS: INSULIN GLARGINE SOLOSTAR 100 UNITS/ML 3 ML PEN SC SCH ×3 (00:06→21:29)
[2020-01-19] MEDS: INSULIN ASPART 100 UNITS/ML 3 ML PEN SC SCH ×5 (00:07→21:27)
[2020-01-19] MEDS: LEVOTHYROXINE SODIUM 200 MCG TABLET PO SCH (06:16)
[2020-01-19 07:00] LABS: BUN Creatinine Ratio 24.8 (10-20); Calcium 8.4 mg/dl (8.5-10.1); Creatinine Clr Calc Pharmacy 122.5 ml/min; Est GFR (African American) 114.9; Est GFR (Non-African American) 99.1; Magnesium 1.9 mg/dl (1.8-2.4); Potassium 3.8 mmol/L (3.5-5.1)
[2020-01-19 07:02] LABS: Hematocrit (blood only) 26.5 % (37-47); Hemoglobin 8.2 g/dL (12.0-16.0); Mean Corpuscular Hgb Conc 30.9 g/dL (32-36); Mean Corpuscular Volume 103.5 fL (80-100); Mean Platelet Volume 12.3 fL (7.4-10.4); Nucleated RBC # (auto) 0.02 K/uL (0-0); Nucleated RBC % (auto) 0.9 %; Platelet Count 99 K/uL (130-400); Platelet Estimate Decreased (Normal); RDW Coefficient of Variation 21.3 % (11.5-14.5); RDW Standard Deviation 80.1 fL (36.4-46.3); Red Blood Count 2.56 M/uL (4.2-5.4); White Blood Count 2.62 K/uL (4.8-10.8)
[2020-01-19] MEDS: PANTOprazole 40 MG in SYRINGE 0 ML IV SCH ×2 (07:54→21:26)
[2020-01-19] MEDS: ESCITALOPRAM OXALATE 20 MG TAB PO SCH (07:55)
[2020-01-19] MEDS: OXYBUTYNIN CHLORIDE 5 MG TAB PO SCH ×2 (07:55→21:24)
[2020-01-19] MEDS: nadoloL 40 MG TAB PO SCH (07:56)
[2020-01-19] MEDS: GABAPENTIN 300 MG CAP PO SCH ×3 (07:56→21:25)
[2020-01-19] MEDS: FERROUS SULFATE 325 MG TAB PO SCH ×2 (07:56→21:24)
[2020-01-19] MEDS: POTASSIUM CHLORIDE 10 MEQ TABCR PO SCH (07:57)
[2020-01-19] MEDS: TAMSULOSIN HCL 0.4 MG CAP PO SCH (07:58)
[2020-01-19] MEDS: SACCHAROMYCES BOULARDII 250 MG CAP PO SCH (07:58)
[2020-01-19] MEDS: FLUTICASONE PROPIONATE NA SPR 16 GM BTL SCH (07:58)
[2020-01-19] MEDS: POTASSIUM CHLORIDE 10 MEQ in SODIUM CHLORIDE 0.9% 1000ML 1,000 ML IV SCH (12:59)
--- NOTE | 2020-01-19 13:27 | Hospitalist Progress Note ---
Date of Service January 19, 2020 Assessment & Plan (1) Generalized weakness: (2) UTI (urinary tract infection): Patient is a 64 yr female with H/O DM II, HTN, HLD, THAD on bipap, restrictive lung disease, cerebral palsy, wheelchair-bound, Ng cirrhosis, grade 1 esophageal varices, hypothyroidism, diabetic neuropathy, pancytopenia secondary to cirrhosis, iron deficiency anemia receiving IV Venofer, history of C. difficile who presents to ED secondary to ill feeling x1 day. Complicated Urinary Tract Infection H/O Nephrolithiasis No signs of sepsis Received IV fluids for transient Hypotension Blood Cx: No growth to date Urine Cx:Proteus mirabilis Continue Rocephin Day#5 Discontinue Cline cath Needs prolonged course of Abx given Nephrolithiasis/persistence despite treatment May benefit from Urology evaluation as outpatient Melena: H/O Grade I Esophageal varices and portal hypertension gastropathy Hold aspirin Continue IV Protonix Monitor H&H Gentle IV fluids GI consulted Hb:8.2 today (3) Lactic acidemia: Lactic acid 2.4>>2.3>>1.8 Chronic elevation in lactic acid, could be due to Metformin/Liver disease Metformin discontinued on prior admission (4) Hypoxia: Chronic Oxygen Dependency On 2 L at bedtime. (5) Chest pain: Chest Pain resolved Troponin X2: Negative Patient believes it is likely due to anxiety EKG: No significant change from prior EKG (6) DM type 2 (diabetes mellitus, type 2): Last A1c 6.9 on 11/26/2019 Recent discharge:Planned to discontinue metformin but patient is still taking Discontinue metformin upon discharge as well Hold Trulicity and Ozempic Lantus/NovoLog per protocol Monitor BGs (7) Cirrhosis: Secondary to NG No signs of hepatic encephalopathy Grade I Esophageal varices and portal hypertension gastropathy per EGD on 11/2019 Continue nadolol Resume Lasix as able (8) Pancytopenia: Follows hematology Dr. Sanchez Secondary to cirrhosis and splenomegaly Anemia secondary to iron deficiency and is currently receiving IV Venofer, last treatment 01/01 monitor CBC (9) Obstructive sleep apnea: on CPAP at HS with 2L O2 (10) Dyslipidemia: Continue statin (11) Hypothyroidism: Continue levothyroxine, TSH 2.79 Previous TSH on 12/22 was 37 and levothyroxine was increased from 150 mcg to 200 mcg Close monitoring as outpatient (12) Fibromyalgia: continue gabapentin (13) Asthma: No acute exacerbation continue PRN albuterol (14) Cerebral palsy: Supportive care (15) Obesity: Encourage lifestyle modifications BMI 57 (16) DVT prophylaxis: SCDs Re:Melena Disposition: Bedbound/Wheelchair bound at baseline Expect to discharge home when stable Admission and Anticipated Discharge Date Admission Date: January 15, 2020 Subjective Patient is seen and examined at bedside No bleeding issues overnight Abdominal discomfort resolved Denies any chest pain, SOB, dizziness, nausea Hb 8.2 today Review of Systems Review of Systems: All systems reviewed & are unremarkable except as noted in HPI & below Physical Exam Physical Exam: Physical Exam: Vitals signs as noted above General Appearance:Morbidly Obese, no apparent distress Head: normocephalic, Atraumatic Eyes: normal inspection, EOMI Neck: supple, Trachea midline Respiratory/Chest: Decreased breath sounds, CTA Cardiovascular: S1, S2, No murmur Abdomen/GI:Soft, Non tender, Bowel sounds present Extremities/Musculoskelatal:normal inspection, mild LE edema Neurologic/Psych:grossly no focal neurological deficits Skin: normal color, warm Results & Data Results & Data ([facility]) Vital Signs (Past 12 Hours) Vital Signs Temp Pulse Pulse Resp BP Pulse Ox 01/19/20 11:46 36.9 C 60 18 108/68 90 01/19/20 08:00 36.7 C 65 20 129/81 90 01/19/20 04:00 36.6 C 64 18 106/66 90 01/19/20 03:22 66 20 95 01/19/20 01:57 69 Laboratory Results Short CBC 01/18/20 01/19/20 Range/Units 19:49 06:10 WBC 2.62 L (4.8-10.8) K/uL Hgb 8.5 L 8.2 L (12.0-16.0) g/dL Hct 27.8 L 26.5 L (37-47) % Plt Count 99 L (130-400) K/uL BMP 01/19/20 06:10 Sodium 140 Potassium 3.8 Chloride 109 H Carbon Dioxide 26 BUN 14 Creatinine 0.55 L Glucose 153 H Calcium 8.4 L (1) DM type 2 (diabetes mellitus, type 2) Diabetes mellitus complication status: with other specified complication 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
[2020-01-19 16:11] LABS: Hematocrit (blood only) 27.8 % (37-47); Hemoglobin 8.5 g/dL (12.0-16.0)
[2020-01-19] MEDS: TRAZODONE HCL 50 MG TAB PO SCH (21:23)
[2020-01-19] MEDS: cefTRIAXone SODIUM 2,000 MG in DEXTROSE 5% 50 ML IV SCH (21:32)
[2020-01-20] MEDS: LEVOTHYROXINE SODIUM 200 MCG TABLET PO SCH (06:06)
[2020-01-20] MEDS: INSULIN ASPART 100 UNITS/ML 3 ML PEN SC SCH ×2 (06:09→12:44)
[2020-01-20 07:03] LABS: Hematocrit (blood only) 29.3 % (37-47); Hemoglobin 8.8 g/dL (12.0-16.0)
[2020-01-20 07:29] LABS: Creatinine Clr Calc Pharmacy 122.9 ml/min; Est GFR (African American) 114.9; Est GFR (Non-African American) 99.1
[2020-01-20] MEDS: SACCHAROMYCES BOULARDII 250 MG CAP PO SCH (07:41)
[2020-01-20] MEDS: ESCITALOPRAM OXALATE 20 MG TAB PO SCH (07:41)
[2020-01-20] MEDS: GABAPENTIN 300 MG CAP PO SCH ×2 (07:41→12:43)
[2020-01-20] MEDS: POTASSIUM CHLORIDE 10 MEQ TABCR PO SCH (07:41)
[2020-01-20] MEDS: FERROUS SULFATE 325 MG TAB PO SCH (07:42)
[2020-01-20] MEDS: OXYBUTYNIN CHLORIDE 5 MG TAB PO SCH (07:42)
[2020-01-20] MEDS: TAMSULOSIN HCL 0.4 MG CAP PO SCH (07:42)
[2020-01-20] MEDS: nadoloL 40 MG TAB PO SCH (07:42)
[2020-01-20] MEDS: FLUTICASONE PROPIONATE NA SPR 16 GM BTL SCH (07:43)
[2020-01-20] MEDS: INSULIN GLARGINE SOLOSTAR 100 UNITS/ML 3 ML PEN SC SCH (07:44)
[2020-01-20] MEDS: PANTOprazole 40 MG in SYRINGE 0 ML IV SCH (08:26)
[2020-01-20] MEDS: POTASSIUM CHLORIDE 10 MEQ in SODIUM CHLORIDE 0.9% 1000ML 1,000 ML IV SCH (08:26)
[2020-01-20] MEDS ORDERED: MICONAZOLE NITRATE POWDER 43 GM EXT PRN (09:04)
--- NOTE | 2020-01-20 09:04 | Gastrointestinal Consultation ---
Date of Consultation January 20, 2020 Assessment & Plan (1) Dark stools: 64 year old female with history of DM II, CP, HTN, dyslipidemia, THAD, chronic anemia, NG cirrhosis w Grade I esophageal varices and portal HTN admitted w/ UTI concern for urinary sespsis with a dark stool documented on 01/18/20. She has since had documented brown stools, HGB stable without BUN elevation - Monitor H/H - Protonix 40mg PO daily - Continue Nadolol 40mg daily ; Carafate 1g QID - Would defer endoscopic evaluation at this time given poor respiratory function, recent EGD, colonoscopy. - No GI contraindication to diet. Will sign off. Thank you for allowing us to participate in the care of this patient. Please call with any acute changes, questions or concerns. Please see addendum below with additional recommendation from my supervising physician. Supervising Physician Co-Signing Physician Notes I have personally seen and examined the patient wit ZAK Pedroza. Her note reflects my exam and findings. I agree with her impression and plan. Stable H/H. Out patient follow up. Harinder Flood M.D. History of Present Illness Reason for Consultation: dark stool Requesting Physician: Suyapa Attending Physician: Que Dale MD History of Present Illness 64 y/o female w hx of DM II, CP, HTN, dyslipidemia, THAD, chronic anemia, NG cirrhosis w Grade I esophageal varices and portal HTN admitted w/ urinary symptoms, possible concern for urinary sepsis given slight hypotension - GI asked to evaluate for dark stools. Pt was seen and evaluated, chart reviewed. Pt notes today she is feeling well. No longer having any urinary symptoms. Denies abd pain. No nausea, vomiting. No bloody stools but tells me a nurse told her her stoosl were dark. Documented is large, formed brown stools. There was a black/brown stool documented 01/17. Has not received any blood products this admission HGB trending up BUN non elevated Last EGD in November Grade I esophageal varices, portal HTN Allergies Allergy/AdvReac Type Severity Reaction Status Date / Time Penicillins Allergy Intermediate Hives Verified 12/29/19 16:29 Home Medications Home Medications Medication Instructions Recorded Confirmed Type Lantus Solostar U-100 Insulin 24 unit SUBCUT HS 06/16/18 01/15/20 History ascorbic acid (vitamin C) [Vitamin 500 mg PO DAILY 06/16/18 01/15/20 History C] aspirin [Aspir-81] 81 mg PO QAM 06/16/18 01/15/20 History cyclobenzaprine 10 mg PO HS 06/16/18 01/15/20 History dulaglutide 1.5 mg SUBCUT WK 06/16/18 01/15/20 History furosemide [Lasix] 20 mg PO Q2D 06/16/18 01/15/20 History gabapentin 300 mg PO DAILY 06/16/18 01/15/20 History potassium chloride 10 meq PO DAILY 06/16/18 01/15/20 History trazodone 50 mg PO HS 06/16/18 01/15/20 History Centrum Silver 1 tab PO QAM 07/19/18 01/15/20 History escitalopram oxalate 20 mg PO DAILY 07/19/18 01/15/20 History fluticasone propionate [Flonase 2 spray INTRANASAL QAM 07/19/18 01/15/20 History Allergy Relief] ferrous sulfate 325 mg PO BID 02/21/19 01/15/20 History tamsulosin 0.4 mg capsule 0.4 mg PO QAM #30 cap 06/26/19 01/15/20 History albuterol sulfate 2 puff INHALATION Q4H PRN 09/09/19 01/15/20 History atorvastatin 40 mg PO HS 09/09/19 01/15/20 History nadolol 40 mg PO DAILY 09/09/19 01/15/20 History oxybutynin chloride 5 mg PO BID 09/09/19 01/15/20 History pantoprazole 40 mg PO DAILY 09/09/19 01/15/20 History nystatin 1 applic TOPICAL TID 11/20/19 01/15/20 History albuterol sulfate 2.5 mg INHALATION Q6H PRN 11/28/19 01/15/20 History semaglutide [Ozempic] 1 mg SUBCUT WK 11/28/19 01/15/20 History levothyroxine [Synthroid] 200 mcg PO DAILYBB 30 Days #30 tab 12/25/19 01/15/20 Rx gabapentin 300 mg PO DAILYBL 01/15/20 01/15/20 History gabapentin 600 mg PO HS 01/15/20 01/15/20 History metformin 1,000 mg PO BID 01/15/20 01/15/20 History Patient History Medical History (Updated 01/20/20 @ 09:16 by Valeri Cobian) Acute cystitis (Acute) Ambulatory dysfunction Ambulatory dysfunction (Acute) Anxiety Asthma (Chronic) DOES NOT USE INH. REPORTS USING NEB TREATMENTS BID. Bilateral lower extremity edema (Chronic) Cardiac murmur Cerebral palsy (Chronic) Chest pain (Acute) Chronic back pain Chronic pain (Chronic) Complicated UTI (urinary tract infection) Contusion of knee, right (Acute) Contusion of leg (Acute) Cough CHRONIC PER PT REPORT Dark stools Depression DM type 2 (diabetes mellitus, type 2) (Chronic) IDDM Dyslipidemia (Chronic) Encounter for pre-operative examination Fall (Acute) Fibromyalgia (Chronic) VIDA (generalized anxiety disorder) (Chronic) GERD (gastroesophageal reflux disease) History of kidney stones History of migraine (Chronic) Hoarseness of voice CHRONIC PER PT REPORT Hypertension Hypothyroidism (Chronic) Major depressive disorder, recurrent, moderate (Chronic) NG (nonalcoholic steatohepatitis) (Chronic) Obesity (BMI 30-39.9) Obesity, morbid (more than 100 lbs over ideal weight or BMI > 40) (Chronic) Obstructive sleep apnea (Chronic) CPAP + OXYGEN AT 2 LPM @ NIGHT On home oxygen therapy 2 LPM @ NIGHT + CPAP Osteoarthritis (Chronic) Pancreatic cyst Pleurisy (Acute) Poor historian Right ankle sprain (Acute) Right knee sprain (Acute) SOB (shortness of breath) on exertion Urinary catheter dysfunction (Acute) Venous insufficiency (Chronic) VRE (vancomycin resistant enterococcus) culture positive (Acute) Surgical History H/O Achilles tendon repair (Chronic) H/O section (Chronic) H/O wisdom tooth extraction (Chronic) History of Achilles tendon repair History of section History of colonoscopy History of D&C (Chronic) History of dilatation and curettage History of esophagogastroduodenoscopy (EGD) History of tooth extraction Family History (Updated 01/15/20 @ 17:46 by Caron Jacobs PA-C) Father Family history of diabetes mellitus Myocardial infarction, Onset Age: 61 Mother Myocardial infarction, Onset Age: 72 Sister Myocardial infarction Social History Preferred Language: Peruvian Communication Ability: Effective 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 Beliefs That Will Affect Care: None marital status: Current Living Situation: Spouse and Family Current Living Situation Comment: Lives with , Sister and grandson Other Information That Helps Us Care for You: No Feels Safe at Home: Yes Safety Concerns: Feels Safe At This Time Smoking Status: Never smoker Do You Dip or Chew Tobacco: No ; Second Hand Exposure: No ; Tobacco Cessation Education Requested by Patient: No Hx Alcohol Use: No Hx Substance Use: No Review of Systems Constitutional: no chills and no fatigue Respiratory: no cough, no chest congestion and no dyspnea Cardiovascular: no chest pain, no dyspnea and no dyspnea on exertion Gastrointestinal: no abdominal pain, no hematemesis, no dysphagia, no blood in stools and no melena Physical Exam Constitutional: no acute distress Neck: trachea midline Respiratory: normal respiratory effort Results & Data ([facility]) Vital Signs (Past 12 Hours) Vital Signs Temp Pulse Pulse Resp BP Pulse Ox 01/20/20 07:46 60 129/67 01/20/20 07:22 57 L 01/20/20 07:18 36.5 C 55 L 20 94/62 L 93 01/20/20 03:50 36.6 C 62 18 100/62 94 01/20/20 03:09 57 L 14 94 01/19/20 23:42 61 01/19/20 23:19 57 L 16 93 01/19/20 23:00 36.6 C 57 L 18 98/56 L 94
--- NOTE | 2020-01-20 11:58 | Hospitalist Progress Note ---
Date of Service January 20, 2020 Assessment & Plan (1) Generalized weakness: (2) UTI (urinary tract infection): Patient is a 64 yr female with H/O DM II, HTN, HLD, THAD on bipap, restrictive lung disease, cerebral palsy, wheelchair-bound, Ng cirrhosis, grade 1 esophageal varices, hypothyroidism, diabetic neuropathy, pancytopenia secondary to cirrhosis, iron deficiency anemia receiving IV Venofer, history of C. difficile who presents to ED secondary to ill feeling x1 day. Complicated Urinary Tract Infection H/O Nephrolithiasis No signs of sepsis Received IV fluids for transient Hypotension Blood Cx: No growth to date Urine Cx:Proteus mirabilis Continue Rocephin Day#6 Discontinue Cline cath Needs prolonged course of Abx given Nephrolithiasis/Recurrent UTI despite treatment Advised to follow up with Urology as outpatient Melena: H/O Grade I Esophageal varices and portal hypertension gastropathy Continue PO Protonix Ok to resume Aspirin as per GI Started on Carafate 1g QID Monitor H&H Received gentle IV fluids Appreciate GI Input Hb:8.8 today Endoscopic evaluation deferred as per GI. (3) Lactic acidemia: Lactic acid 2.4>>2.3>>1.8 Chronic elevation in lactic acid, could be due to Metformin/Liver disease Metformin discontinued on prior admission (4) Hypoxia: Chronic Oxygen Dependency On 2 L at bedtime. (5) Chest pain: Chest Pain resolved Troponin X2: Negative Patient believes it is likely due to anxiety EKG: No significant change from prior EKG (6) DM type 2 (diabetes mellitus, type 2): Last A1c 6.9 on 11/26/2019 Recent discharge:Planned to discontinue metformin but patient is still taking Discontinue metformin upon discharge as well Hold Trulicity and Ozempic Lantus/NovoLog per protocol Monitor BGs (7) Cirrhosis: Secondary to NG No signs of hepatic encephalopathy Grade I Esophageal varices and portal hypertension gastropathy per EGD on 11/2019 Continue nadolol Resume Lasix (8) Pancytopenia: Follows hematology Dr. Sanchez Secondary to cirrhosis and splenomegaly Anemia secondary to iron deficiency and is currently receiving IV Venofer, last treatment 01/01 monitor CBC (9) Obstructive sleep apnea: on CPAP at HS with 2L O2 (10) Dyslipidemia: Continue statin (11) Hypothyroidism: Continue levothyroxine, TSH 2.79 Previous TSH on 12/22 was 37 and levothyroxine was increased from 150 mcg to 200 mcg Close monitoring as outpatient (12) Fibromyalgia: continue gabapentin (13) Asthma: No acute exacerbation continue PRN albuterol (14) Cerebral palsy: Supportive care (15) Obesity: Encourage lifestyle modifications BMI 57 (16) DVT prophylaxis: SCDs Re:Melena Disposition: Bedbound/Wheelchair bound at baseline Expect to discharge home when stable Admission and Anticipated Discharge Date Admission Date: January 15, 2020 Subjective Patient is seen and examined at bedside Hb stable No new complaints Denies any chest pain, SOB, dizziness, nausea Hb 8.8 today Discussed with GI today Review of Systems Review of Systems: All systems reviewed & are unremarkable except as noted in HPI & below Physical Exam Physical Exam: Physical Exam: Vitals signs as noted above General Appearance:Morbidly Obese, no apparent distress Head: normocephalic, Atraumatic Eyes: normal inspection, EOMI Neck: supple, Trachea midline Respiratory/Chest: Decreased breath sounds, CTA Cardiovascular: S1, S2, No murmur Abdomen/GI:Soft, Non tender, Bowel sounds present Extremities/Musculoskelatal:normal inspection, mild LE edema Neurologic/Psych:grossly no focal neurological deficits Skin: normal color, warm Results & Data Results & Data ([facility]) Vital Signs (Past 12 Hours) Vital Signs Temp Pulse Pulse Resp BP Pulse Ox 01/20/20 10:29 36.5 C 60 20 129/67 93 01/20/20 07:46 60 129/67 01/20/20 07:22 57 L 01/20/20 07:18 36.5 C 55 L 20 94/62 L 93 01/20/20 03:50 36.6 C 62 18 100/62 94 01/20/20 03:09 57 L 14 94 Laboratory Results Short CBC 01/19/20 01/20/20 Range/Units 15:51 06:30 Hgb 8.5 L 8.8 L (12.0-16.0) g/dL Hct 27.8 L 29.3 L (37-47) % BMP 01/20/20 06:30 Creatinine 0.55 L (1) DM type 2 (diabetes mellitus, type 2) Diabetes mellitus complication status: with other specified complication 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
--- NOTE | 2020-01-20 12:27 | Discharge Summary ---
Date of Service January 20, 2020 Admission HPI Per Admitting Provider This is a 64-year-old female who has significant past medical history of T2DM, HTN, HLD, THAD on bipap, restrictive lung disease, cerebral palsy, wheelchair- bound, Thompson cirrhosis, grade 1 esophageal varices, hypothyroidism, diabetic neuropathy, pancytopenia secondary to cirrhosis, iron deficiency anemia receiving IV Venofer, history of C. difficile who presents to ED secondary to ill feeling x1 day. Patient is mostly wheelchair-bound however over the past 24 hours she has spent most of the time in bed. She is overall felt unwell, weak, chilled, dysuria, increased urinary urgency and frequency. He denies any docu mented fever, sweats, lightheadedness, dizziness, syncope, shortness of breath at rest, nausea, vomiting, abdominal pain. Her last BM was yesterday. Overall her appetite has been waxing and waning but overall not well the past 24 hours. She does have chronic shortness of breath secondary to restrictive lung disease and obesity along with a chronic dry cough. She feels these are unchanged. Dunlap s express an episode of chest pain that occurred prior to arrival. She states it occurred immediately after eating lunch and she developed substernal chest pain. Pain was nonradiating, felt like a dull ache, relieved within 1 hour, made worse with eating, denied any associated diaphoresis, n/v, dizziness, sob or palpitations. She lives at home with her , 2 other family members and has a caregiver for 8 hours of the day. She states that she was told she had some blood in her stool per her caregivers but she cannot confirm this. In ED patient remained hemodynamically unstable until called for evaluation. She become slightly hypotensive with SBP's in the 80s. She received a 250 mL IVF bolus which improved her blood pressures into the 110s. Lab work notable for chronic anemia of 8.9 and 30.0, WBC 3.69, platelet 114, BUN 13, creatinine 0.74, glucose 300, lactate 2.4, troponin WNL, proBNP WNL, TSH WNL. Urinalysis was obtained via straight catheterization which revealed +3 leukocyte esterase, greater than 30 WBCs and +4 bacteria. Patient previously had been seen in ED approximately 2 weeks ago secondary to UTI. Culture grew out Proteus mirabilis and initially she was placed on Macrobid. Was transitioned to cefdinir and she did complete full course of this. She feels as though she may have not completely cleared the infection. Due to this she was given 2 g of IV cefepime in the ED. Admission Exam Per Admitting Provider Physical Exam Physical Exam: Constitutional: Morbidly obese, female, pale, vitals as above, NAD, sitting up in bed, pleasant, conversing easily Head: Normocephalic, Atraumatic Eyes: PERRL, conjunctivae normal, anicteric sclerae ENMT: external ear and nose normal, oropharynx normal dry mucous membrane Neck: trachea midline, no thyromegaly normal visual inspection Respiratory: decreased breath sounds at bases secondary to poor inspiratory effort, lungs clear to auscultation, no wheeze, rales, rhonchi. no accessory muscle use Cardiovascular: RRR, 2/6 JOSE noted RUSB, bilateral lymphedema vessels: no JVD or carotid bruit Chest: normal inspection of chest, nontender to palpation Abdomen: Obese, protuberant abdomen, firm, hypoactive bowel sounds, nontender Musculoskeletal: no cyanosis or clubbing, active range of motion to bilateral upper extremities, poor truncal strength, bilateral lower extremity strength 3/5 Skin: no rashes, warm and dry normal turgor Neurologic: PERRL, EOMI, accommodation nl, no face palsy, no dysarthria CN's II-XI intact bilaterally and moves all extremities Psychiatric: A+Ox3, euthymic affect Lymphatic: no cervical or axillary lymphadenopathy : Catheter in place Principal Diagnosis Urinary tract infection Melena Lactic acidosis Discharge Data Allergies Allergy/AdvReac Type Severity Reaction Status Date / Time Penicillins Allergy Intermediate Hives Verified 12/29/19 16:29 Consultations 01/15/20 16:15 ED Decision to Admit Stat 01/19/20 08:00 Consult Gastroenterology Routine Procedures Performed CXR: Cardiomegaly. No other convincing evidence of acute cardiopulmonary disease. Venous Doppler: No evidence of deep venous thrombosis. KUB: Moderate diffuse stool burden suggests constipation. No bowel obstruction is apparent. Ordered Studies 01/15/20 19:19 US venous doppler LE RT Routine Hospital Course (1) Generalized weakness: (2) UTI (urinary tract infection): Patient is a 64 yr female with H/O DM II, HTN, HLD, THAD on bipap, restrictive lung disease, cerebral palsy, wheelchair-bound, Thompson cirrhosis, grade 1 esophageal varices, hypothyroidism, diabetic neuropathy, pancytopenia secondary to cirrhosis, iron deficiency anemia receiving IV Venofer, history of C. difficile who presents to ED secondary to ill feeling x1 day. Complicated Urinary Tract Infection H/O Nephrolithiasis No signs of sepsis Received IV fluids for transient Hypotension Blood Cx: No growth to date Urine Cx:Proteus mirabilis Continue Rocephin Day#6 Discontinue Cline cath Needs prolonged course of Abx given Nephrolithiasis/Recurrent UTI despite treatment Advised to follow up with Urology as outpatient Melena: H/O Grade I Esophageal varices and portal hypertension gastropathy Continue PO Protonix Ok to resume Aspirin as per GI Started on Carafate 1g QID Monitor H&H Received gentle IV fluids Appreciate GI Input Hb:8.8 today Endoscopic evaluation deferred as per GI. (3) Lactic acidemia: Lactic acid 2.4>>2.3>>1.8 Chronic elevation in lactic acid, could be due to Metformin/Liver disease Metformin discontinued on prior admission (4) Hypoxia: Chronic Oxygen Dependency On 2 L at bedtime. (5) Chest pain: Chest Pain resolved Troponin X2: Negative Patient believes it is likely due to anxiety EKG: No significant change from prior EKG (6) DM type 2 (diabetes mellitus, type 2): Last A1c 6.9 on 11/26/2019 Recent discharge:Planned to discontinue metformin but patient is still taking Discontinue metformin upon discharge as well Hold Trulicity and Ozempic Lantus/NovoLog per protocol Monitor BGs (7) Cirrhosis: Secondary to THOMPSON No signs of hepatic encephalopathy Grade I Esophageal varices and portal hypertension gastropathy per EGD on 11/2019 Continue nadolol Resume Lasix (8) Pancytopenia: Follows hematology Dr. Sanchez Secondary to cirrhosis and splenomegaly Anemia secondary to iron deficiency and is currently receiving IV Venofer, last treatment 01/01 monitor CBC (9) Obstructive sleep apnea: on CPAP at HS with 2L O2 (10) Dyslipidemia: Continue statin (11) Hypothyroidism: Continue levothyroxine, TSH 2.79 Previous TSH on 12/22 was 37 and levothyroxine was increased from 150 mcg to 200 mcg Close monitoring as outpatient (12) Fibromyalgia: continue gabapentin (13) Asthma: No acute exacerbation continue PRN albuterol (14) Cerebral palsy: Supportive care (15) Obesity: Encourage lifestyle modifications BMI 57 (16) DVT prophylaxis: SCDs Re:Melena Disposition: Bedbound/Wheelchair bound at baseline Expect to discharge home when stable Total Time Total Time Spent Total Time Spent (In Minutes): 34 minutes Total Time Includes: Examination of the Patient, Discharge Planning, Medication Reconciliation, Communication With Other Providers and Other Discharge Plan Discharge Items Patient Disposition: Home - Home Health Services Reason For Visit: UTI,WEAKNESS Discharge Diagnosis: Urinary tract infection Melena Lactic acidosis Condition on Discharge: Fair Activity: Resume your previous activity Exercise/Sports: Gradually increase as tolerated Non-emergency contact: Primary Care Provider and 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 Follow-up with your urologist as recommended for recurrent urinary tract infections and kidney stones. Complete the antibiotic course (Cefdinir) for urinary tract infection as Prescribed. Your Metformin is discontinued secondary to recurrent lactic acidosis. Discussed with the physician for further adjustment of your diabetic medications as needed. Your final blood cultures are pending at the time of discharge. Follow-up with your physician for results. Seek immediate medical attention if your symptoms reoccur or worsen Pending Studies at Discharge: Yes Studies:: Blood Culture Stand-Alone Forms: My [facility], Smoking Cessation Medications and DC Order Prescriptions: New sucralfate 1 gram Tablet 1 g PO QID 30 Days Qty: 120 RF: 0 Florastor 250 mg Capsule 250 mg PO DAILY Qty: 30 RF: 0 cefdinir 300 mg capsule 300 mg PO BID 9 Days Qty: 18 RF: 0 Continued tamsulosin 0.4 mg capsule 0.4 mg PO QAM Qty: 30 RF: 0 escitalopram oxalate 20 mg tablet 20 mg PO DAILY RF: 0 fluticasone propionate [Flonase Allergy Relief] 50 mcg/actuation Scurry,Suspension 2 spray Intranasal QAM RF: 0 Centrum Silver 0.4-300-250 mg-mcg-mcg Tablet 1 tab PO QAM RF: 0 pantoprazole 20 mg tablet,delayed release (DR/EC) 40 mg PO DAILY RF: 0 atorvastatin 40 mg tablet 40 mg PO HS RF: 0 albuterol sulfate 90 mcg/actuation Hfa Aerosol Inhaler 2 puff INHALATION Q4H PRN (Reason: Wheezing) RF: 0 oxybutynin chloride 5 mg tablet 5 mg PO BID RF: 0 nadolol 20 mg tablet 40 mg PO DAILY RF: 0 gabapentin 300 mg Capsule 600 mg PO HS RF: 0 gabapentin 300 mg Capsule 300 mg PO DAILYBL RF: 0 cyclobenzaprine 10 mg Tablet 10 mg PO HS RF: 0 trazodone 50 mg Tablet 50 mg PO HS RF: 0 potassium chloride 10 mEq Tablet Extended Release 10 meq PO DAILY RF: 0 aspirin [Aspir-81] 81 mg Tablet,Delayed Release (Dr/Ec) 81 mg PO QAM RF: 0 ascorbic acid (vitamin C) [Vitamin C] 500 mg Tablet 500 mg PO DAILY RF: 0 gabapentin 300 mg Capsule 300 mg PO DAILY RF: 0 furosemide [Lasix] 20 mg Tablet 20 mg PO Q2D RF: 0 Lantus Solostar U-100 Insulin 100 unit/mL (3 mL) Insulin Pen 24 unit SUBCUT HS RF: 0 dulaglutide 1.5 mg/0.5 mL Pen Injector 1.5 mg subcut WK RF: 0 ferrous sulfate 325 mg (65 mg iron) Tablet 325 mg PO BID RF: 0 nystatin 100,000 unit/gram powder 1 applic TOPICAL TID RF: 0 albuterol sulfate 2.5 mg /3 mL (0.083 %) solution for nebulization 2.5 mg inhalation Q6H PRN (Reason: Wheezing) RF: 0 Ozempic 1 mg/dose (2 mg/1.5 mL) Pen Injector 1 mg SUBCUT WK RF: 0 levothyroxine [Synthroid] 200 mcg Tablet 200 mcg PO DAILYBB 30 Days Qty: 30 RF: 1 Discontinued metformin 1,000 mg Tablet 1,000 mg PO BID RF: 0 Discharge Orders: Discharge Order (Routine); Ordered 01/20/20 Ordered By: Que Dale Admission Data Admit Date/Time: 01/15/20 16:34 Attending Provider: Que Dale Admit Provider: Ramez Martinez Primary Care Provider: Rajwinder Carter Other Providers: Ramez Martinez ; Silvia Motley Other Interventions: Discharge Summary Assessment (RN) Last Done: 01/20/20 10:29 DC Date/Time DO NOT enter until pt leaves facility: 01/20/20 14:04
[2020-01-20] MEDS ORDERED: SUCRALFATE 1 GM TAB PO SCH (13:00)
== END 2020-01-20 14:04 | disposition home health service (06) ==
LOC: ED 13:12 → INTOOBSV 16:34 → SUATTDRO 16:34 → 2W 16:34

== ENCOUNTER 2020-02-04 17:16 | Observation (INO) ==
[2020-02-04] MEDS ORDERED: ALBUT/IPRATROP 3MG/0.5MG NEB 3 ML VIAL INH STA (17:54)
--- NOTE | 2020-02-04 18:00 | Emergency Department Note ---
Impression & Plan SOB (shortness of breath), Acute bronchitis, Asthma exacerbation ED Provider Note NAME: RYLAND SHAW AGE: 64 SEX: F : 1955 ARRIVES VIA: Walk-In INFORMANT: [Patient] ED PROVIDER(S): [Selvin Parker MD] CHIEF COMPLAINT: Shortness of breath HISTORY OF PRESENT ILLNESS: The patient is a 64-year-old female who presents with several days of increasing shortness of breath and a productive cough. Today, she saw her doctors office, she had a very low-grade fever and she was referred to the ER. The patient had pneumonia about a month ago and is concerned that she never fully recovered. She has noticed an increase in fluid in her legs. She has no known coronavirus exposures. The patient is currently on antibiotics for a UTI. She is about correction through her course she states. The patient feels short of breath to talk and to do just about anything. She is chronically in a wheelchair because of cerebral palsy. There has been no stuffy nose, she has not had a sore throat. No vomiting or diarrhea. The patient wears oxygen at nighttime, she does not wear oxygen during the day. She used her nebulizer last yesterday. REVIEW OF SYSTEMS: See HPI for pertinent positives and negatives. A total of ten systems were reviewed and were otherwise negative. PMHx/PSHx: See Below SOCIAL HISTORY: See Below. PHYSICAL EXAM: GENERAL: Patient is in mild respiratory distress. Short of breath to speak. HEENT: No acute trauma, normocephalic atraumatic, mucous membranes moist, no nasal congestion, no scleral icterus. NECK: No stridor, no adenopathy, no meningismus, trachea is midline. LUNGS: Wheezing bilaterally, no crackles, she appears to have some mild respiratory distress. She is clearly short of breath to speak. Breath sounds are equal. HEART: Very distant heart tones, no obvious murmur, rhythm and rate seem regular. ABDOMEN: Soft, nontender, bowel sounds positive, no hernias, no peritonitis. EXTREMITIES: No cyanosis, mild bilateral pedal edema, no warmth or erythema to suggest cellulitis, full range of motion of all the joints without pain or difficulty, no signs for acute trauma. NEUROLOGIC: Oriented x 3, moves all extremities equally, does appear in general diffusely weak. SKIN: No rash, no jaundice, no diaphoresis. DIFFERENTIAL DIAGNOSIS: Reactive airway disease, pneumonia, bronchitis, pneumothorax, COPD, CHF, infections, cardiac ischemia, pulmonary embolism, musculoskeletal, gastrointestinal, as well as other pathologies. EMERGENCY DEPARTMENT COURSE/PROCEDURES: ECG: Indication was shortness of breath. The EKG shows a sinus rhythm with a first-degree AV block. There is some artifact present. The rate is 65. QTc is 447. There is no ST elevation, no PVCs. Continuous Cardiac Monitoring: An order was placed for continuous cardiac monitoring. The monitor shows a rate of 62 with sinus rhythm and a first-degree AV block. MEDICAL DECISION MAKING: There is a lower white count, hemoglobin and platelet count. This pancytopenia has been documented in the past. No coagulopathy. No significant electrolyte abnormality or kidney failure. No worrisome liver enzyme elevation. EKG shows a sinus rhythm, no acute ischemia. Cardiac enzyme testing x1 is not consistent with acute cardiac injury. Influenza and coronavirus testing returned negative. Chest film did not show pneumonia or CHF. Some chronic changes were noted. On exam, the patient seemed visibly short of breath. She had a hard time speaking without pausing to catch her breath. The patient was wheezing on exam. She was given a DuoNeb. She received IV ceftriaxone for presumed bronchitis/pneumonia. The patient is not doing well at home. She seems visibly short of breath just speaking while here in the ED. She was seen by her doctor earlier and referred to the ED because of her dyspnea. The patient appears to have at least an acute bronchitis, possibly early pneumonia not seen on chest film. This has flared her asthma and she has become short of breath. Hospitalization is warranted. I spoke to the patient, I talked to case management. The on-call hospitalist was consulted. Past Med/Surg History Medical History Acute cystitis (Acute) Ambulatory dysfunction Ambulatory dysfunction (Acute) Anxiety Asthma (Chronic) DOES NOT USE INH. REPORTS USING NEB TREATMENTS BID. Bilateral lower extremity edema (Chronic) Cardiac murmur Cerebral palsy (Chronic) Chest pain (Acute) Chronic back pain Chronic pain (Chronic) Complicated UTI (urinary tract infection) Contusion of knee, right (Acute) Contusion of leg (Acute) Cough CHRONIC PER PT REPORT Dark stools Depression DM type 2 (diabetes mellitus, type 2) (Chronic) IDDM Dyslipidemia (Chronic) Encounter for pre-operative examination Fall (Acute) Fibromyalgia (Chronic) VIDA (generalized anxiety disorder) (Chronic) GERD (gastroesophageal reflux disease) History of kidney stones History of migraine (Chronic) Hoarseness of voice CHRONIC PER PT REPORT Hypertension Hypothyroidism (Chronic) Major depressive disorder, recurrent, moderate (Chronic) NG (nonalcoholic steatohepatitis) (Chronic) Obesity (BMI 30-39.9) Obesity, morbid (more than 100 lbs over ideal weight or BMI > 40) (Chronic) Obstructive sleep apnea (Chronic) CPAP + OXYGEN AT 2 LPM @ NIGHT On home oxygen therapy 2 LPM @ NIGHT + CPAP Osteoarthritis (Chronic) Pancreatic cyst Pleurisy (Acute) Poor historian Right ankle sprain (Acute) Right knee sprain (Acute) SOB (shortness of breath) on exertion Urinary catheter dysfunction (Acute) Venous insufficiency (Chronic) VRE (vancomycin resistant enterococcus) culture positive (Acute) Surgical History H/O Achilles tendon repair (Chronic) H/O section (Chronic) H/O wisdom tooth extraction (Chronic) History of Achilles tendon repair History of section History of colonoscopy History of D&C (Chronic) History of dilatation and curettage History of esophagogastroduodenoscopy (EGD) History of tooth extraction Family History Father Family history of diabetes mellitus Myocardial infarction, Onset Age: 61 Mother Myocardial infarction, Onset Age: 72 Sister Myocardial infarction Social History Preferred Language: Kittitian Communication Ability: Effective Chromosomal Disorders Counselor Required: No Beliefs That Will Affect Care: None marital status: Current Living Situation: Spouse and Family Current Living Situation Comment: Lives with , Sister and grandson Feels Safe at Home: Yes Smoking Status: Never smoker Second Hand Exposure: No ; Hx Alcohol Use: No Hx Substance Use: No Allergies Allergies Allergy/AdvReac Type Severity Reaction Status Date / Time Penicillins Allergy Intermediate Rash Verified 02/04/20 19:30 Home Meds Home Medications Medication Instructions Recorded Confirmed Lantus Solostar U-100 Insulin 24 unit SUBCUT HS 06/16/18 02/04/20 ascorbic acid (vitamin C) [Vitamin 500 mg PO DAILY 06/16/18 02/04/20 C] aspirin [Aspir-81] 81 mg PO QAM 06/16/18 02/04/20 cyclobenzaprine 10 mg PO HS 06/16/18 02/04/20 furosemide [Lasix] 20 mg PO DAILY PRN 06/16/18 02/04/20 gabapentin 300 mg PO QAM 06/16/18 02/04/20 potassium chloride 10 meq PO DAILY 06/16/18 02/04/20 trazodone 50 mg PO HS 06/16/18 02/04/20 Centrum Silver 1 tab PO QAM 07/19/18 02/04/20 escitalopram oxalate 20 mg PO DAILY 07/19/18 02/04/20 fluticasone propionate [Flonase 2 spray INTRANASAL QAM 07/19/18 02/04/20 Allergy Relief] ferrous sulfate 325 mg PO BID 02/21/19 02/04/20 tamsulosin 0.4 mg capsule 0.4 mg PO QAM #30 cap 06/26/19 02/04/20 albuterol sulfate 2 puff INHALATION Q4H PRN 09/09/19 02/04/20 atorvastatin 40 mg PO HS 09/09/19 02/04/20 nadolol 40 mg PO DAILY 09/09/19 02/04/20 oxybutynin chloride 5 mg PO BID 09/09/19 02/04/20 pantoprazole 40 mg PO DAILY 09/09/19 02/04/20 nystatin 1 applic TOPICAL TID 11/20/19 02/04/20 Ozempic 1 mg SUBCUT WK 11/28/19 02/04/20 albuterol sulfate 2.5 mg INHALATION Q6H PRN 11/28/19 02/04/20 gabapentin 300 mg PO DAILYBL 01/15/20 02/04/20 gabapentin 600 mg PO HS 01/15/20 02/04/20 dulaglutide [Trulicity] 1.5 mg SUBCUT WK 02/04/20 02/04/20 levothyroxine [Synthroid] 200 mcg PO QAM 02/04/20 02/04/20 metformin 1,000 mg PO BID 02/04/20 02/04/20 Previous Rx's Medication Instructions Recorded sucralfate 1 g PO QID 30 Days #120 tab 01/20/20 Results & Data (ED) Vital Signs Vital Signs - 24 hr 02/04/20 17:28 02/04/20 18:01 02/04/20 18:03 Temperature 37 C Temperature Source Oral Pulse Rate 68 65 Pulse Rate [Apical] 65 Pulse Rate from SpO2 Sensor 66 Respiratory Rate 22 22 24 Respiratory Effort / Characteristics Non-Labored Spontaneous Blood Pressure 113/64 Blood Pressure Mean 80 Blood Pressure Position Sitting Pulse Oximetry 93 94 94 Oxygen Delivery Method Room Air Room Air Room Air Sepsis Recent Fever Within 48 Hours No Sepsis Action Taken by Nursing No Action Required 02/04/20 18:32 02/04/20 18:56 02/04/20 19:14 Temperature Temperature Source Pulse Rate 64 64 Pulse Rate [Apical] Pulse Rate from SpO2 Sensor 62 64 Respiratory Rate 22 13 Respiratory Effort / Characteristics Blood Pressure 125/74 112/89 Blood Pressure Mean 107 92 Blood Pressure Position Pulse Oximetry 93 94 94 Oxygen Delivery Method Room Air Room Air Sepsis Recent Fever Within 48 Hours Sepsis Action Taken by Nursing 02/04/20 19:31 02/04/20 20:04 02/04/20 20:30 Temperature Temperature Source Pulse Rate 64 63 62 Pulse Rate [Apical] Pulse Rate from SpO2 Sensor 64 64 63 Respiratory Rate 16 21 16 Respiratory Effort / Characteristics Blood Pressure 128/54 L 104/66 110/78 Blood Pressure Mean 68 76 89 Blood Pressure Position Pulse Oximetry 94 96 93 Oxygen Delivery Method Room Air Sepsis Recent Fever Within 48 Hours Sepsis Action Taken by Nursing 02/04/20 21:00 02/04/20 21:31 02/04/20 22:30 Temperature Temperature Source Pulse Rate 64 59 L 62 Pulse Rate [Apical] Pulse Rate from SpO2 Sensor 60 60 60 Respiratory Rate 18 13 15 Respiratory Effort / Characteristics Blood Pressure 138/82 110/57 L 107/84 Blood Pressure Mean 97 71 98 Blood Pressure Position Pulse Oximetry 90 96 94 Oxygen Delivery Method Sepsis Recent Fever Within 48 Hours Sepsis Action Taken by Nursing 02/04/20 23:00 02/04/20 23:30 Temperature Temperature Source Pulse Rate 58 L 59 L Pulse Rate [Apical] Pulse Rate from SpO2 Sensor 58 L Respiratory Rate 13 14 Respiratory Effort / Characteristics Blood Pressure 123/81 124/65 Blood Pressure Mean 110 79 Blood Pressure Position Pulse Oximetry 93 94 Oxygen Delivery Method Sepsis Recent Fever Within 48 Hours Sepsis Action Taken by Retirement Medications Current Medication List: was personally reviewed by wi Laboratory Data Attestation: I reviewed the patient's lab results. Result diagrams: 02/04/20 18:28 02/04/20 18:28 Lab Results 02/04/20 02/04/20 02/04/20 Range/Units 18:28 18:28 18:28 WBC 2.78 L (4.8-10.8) K/uL RBC 2.91 L (4.2-5.4) M/uL Hgb 9.3 L (12.0-16.0) g/dL Hct 30.7 L (37-47) % MCV 105.5 H (80-100) fL MCH 32.0 (25-34) pg MCHC 30.3 L (32-36) g/dL RDW Std Deviation 80.6 H (36.4-46.3) fL RDW Coeff of Bradley 20.6 H (11.5-14.5) % Plt Count 98 L (130-400) K/uL MPV 12.2 H (7.4-10.4) fL Immature Gran % (Auto) 0.0 % Neut % (Auto) 51.3 % Lymph % (Auto) 28.1 % [place] % (Auto) 10.1 % Eos % (Auto) 9.4 % Baso % (Auto) 1.1 % Immature Gran # (Auto) 0.00 (0.00-0.02) K/uL Neut # (Auto) 1.43 (1.4-6.5) K/uL Lymph # (Auto) 0.78 L (1.2-3.4) K/uL [place] # (Auto) 0.28 (0.11-0.59) K/uL Eos # (Auto) 0.26 (0-0.5) K/uL Baso # (Auto) 0.03 (0-0.2) K/uL Hypochromasia Present Anisocytosis Present Tear Drop Cells 1+ Schistocytes Occasional PT (9.0-12.0) Seconds INR (0.9-1.1) APTT (21.0-31.0) Seconds PTT Ratio Sodium 141 (136-145) mmol/L Potassium 3.9 (3.5-5.1) mmol/L Chloride 110 H (98-107) mmol/L Carbon Dioxide 26 (21-32) mmol/L Anion Gap 5.0 (3-11) BUN 12 (7-18) mg/dl Creatinine 0.64 (0.6-1.2) mg/dl Est Cr Clr Drug Dosing Not Reportable Est GFR ( Amer) 109.3 Est GFR (Non-Af Amer) 94.3 BUN/Creatinine Ratio 18.2 (10-20) Glucose 227 H (70-99) mg/dl POC Glucose (70-99) mg/dl Lactate 1.5 (0.4-2.0) mmol/L Calcium 8.7 (8.5-10.1) mg/dl Magnesium 2.1 (1.8-2.4) mg/dl Total Bilirubin 0.5 (0.2-1) mg/dl AST 36 (15-37) U/L ALT 30 (12-78) U/L Alkaline Phosphatase 125 H (45-117) U/L Troponin I < 0.015 (0-0.045) ng/ml NT-Pro-B Natriuret Pep 130 (0-900) pg/ml Total Protein 7.2 (6.4-8.2) gm/dl Albumin 3.2 L (3.4-5.0) gm/dl Globulin 4.0 (2.5-4.0) gm/dl Albumin/Globulin Ratio 0.8 L (0.9-2) COVID-19 PCR (Negative) Influenza Type A (PCR) (Neg) Influenza Type B (PCR) (Neg) 02/04/20 02/04/20 02/04/20 Range/Units 18:28 21:11 21:11 WBC (4.8-10.8) K/uL RBC (4.2-5.4) M/uL Hgb (12.0-16.0) g/dL Hct (37-47) % MCV (80-100) fL MCH (25-34) pg MCHC (32-36) g/dL RDW Std Deviation (36.4-46.3) fL RDW Coeff of Bradley (11.5-14.5) % Plt Count (130-400) K/uL MPV (7.4-10.4) fL Immature Gran % (Auto) % Neut % (Auto) % Lymph % (Auto) % [place] % (Auto) % Eos % (Auto) % Baso % (Auto) % Immature Gran # (Auto) (0.00-0.02) K/uL Neut # (Auto) (1.4-6.5) K/uL Lymph # (Auto) (1.2-3.4) K/uL [place] # (Auto) (0.11-0.59) K/uL Eos # (Auto) (0-0.5) K/uL Baso # (Auto) (0-0.2) K/uL Hypochromasia Anisocytosis Tear Drop Cells Schistocytes PT 12.0 (9.0-12.0) Seconds INR 1.1 (0.9-1.1) APTT 30.1 (21.0-31.0) Seconds PTT Ratio 1.1 Sodium (136-145) mmol/L Potassium (3.5-5.1) mmol/L Chloride (98-107) mmol/L Carbon Dioxide (21-32) mmol/L Anion Gap (3-11) BUN (7-18) mg/dl Creatinine (0.6-1.2) mg/dl Est Cr Clr Drug Dosing Est GFR ( Amer) Est GFR (Non-Af Amer) BUN/Creatinine Ratio (10-20) Glucose (70-99) mg/dl POC Glucose (70-99) mg/dl Lactate (0.4-2.0) mmol/L Calcium (8.5-10.1) mg/dl Magnesium (1.8-2.4) mg/dl Total Bilirubin (0.2-1) mg/dl AST (15-37) U/L ALT (12-78) U/L Alkaline Phosphatase (45-117) U/L Troponin I (0-0.045) ng/ml NT-Pro-B Natriuret Pep (0-900) pg/ml Total Protein (6.4-8.2) gm/dl Albumin (3.4-5.0) gm/dl Globulin (2.5-4.0) gm/dl Albumin/Globulin Ratio (0.9-2) COVID-19 PCR NEGATIVE (Negative) Influenza Type A (PCR) Neg for Influ A (Neg) Influenza Type B (PCR) Neg for Influ B (Neg) 02/04/20 Range/Units 23:02 WBC (4.8-10.8) K/uL RBC (4.2-5.4) M/uL Hgb (12.0-16.0) g/dL Hct (37-47) % MCV (80-100) fL MCH (25-34) pg MCHC (32-36) g/dL RDW Std Deviation (36.4-46.3) fL RDW Coeff of Bradley (11.5-14.5) % Plt Count (130-400) K/uL MPV (7.4-10.4) fL Immature Gran % (Auto) % Neut % (Auto) % Lymph % (Auto) % [place] % (Auto) % Eos % (Auto) % Baso % (Auto) % Immature Gran # (Auto) (0.00-0.02) K/uL Neut # (Auto) (1.4-6.5) K/uL Lymph # (Auto) (1.2-3.4) K/uL [place] # (Auto) (0.11-0.59) K/uL Eos # (Auto) (0-0.5) K/uL Baso # (Auto) (0-0.2) K/uL Hypochromasia Anisocytosis Tear Drop Cells Schistocytes PT (9.0-12.0) Seconds INR (0.9-1.1) APTT (21.0-31.0) Seconds PTT Ratio Sodium (136-145) mmol/L Potassium (3.5-5.1) mmol/L Chloride (98-107) mmol/L Carbon Dioxide (21-32) mmol/L Anion Gap (3-11) BUN (7-18) mg/dl Creatinine (0.6-1.2) mg/dl Est Cr Clr Drug Dosing Est GFR ( Amer) Est GFR (Non-Af Amer) BUN/Creatinine Ratio (10-20) Glucose (70-99) mg/dl POC Glucose 119 H (70-99) mg/dl Lactate (0.4-2.0) mmol/L Calcium (8.5-10.1) mg/dl Magnesium (1.8-2.4) mg/dl Total Bilirubin (0.2-1) mg/dl AST (15-37) U/L ALT (12-78) U/L Alkaline Phosphatase (45-117) U/L Troponin I (0-0.045) ng/ml NT-Pro-B Natriuret Pep (0-900) pg/ml Total Protein (6.4-8.2) gm/dl Albumin (3.4-5.0) gm/dl Globulin (2.5-4.0) gm/dl Albumin/Globulin Ratio (0.9-2) COVID-19 PCR (Negative) Influenza Type A (PCR) (Neg) Influenza Type B (PCR) (Neg) Administered Medications Insulin Aspart (Novolog Flexpen) 0 units SC ACHS KRISTY Stop: 03/05/20 22:39 Last Admin: 02/04/20 23:03 Dose: Not Given Documented by: [id number] Cosigned by: [id number] Discontinued Medications Albuterol (Duoneb) 3 ml INH NOW STA Stop: 02/04/20 17:55 Last Admin: 02/04/20 18:03 Dose: 3 ml Documented by: [id number] Ceftriaxone Sodium (Rocephin) 2,000 mg in 70 mls @ 140 mls/hr IV NOW STA Stop: 02/04/20 20:15 Last Infusion: 02/04/20 20:52 Dose: 0 mls/hr Documented by: [id number] Admin: 02/04/20 20:22 Dose: 140 mls/hr Documented by: [id number] Insulin Glargine (Lantus Solostar Pen) 25 units SC NOW STA Stop: 02/04/20 22:37 Last Admin: 02/04/20 23:03 Dose: 25 units Documented by: [id number] Cosigned by: [id number] Methylprednisolone (Solumedrol) 20 mg IV NOW STA Stop: 02/04/20 22:35 Last Admin: 02/04/20 23:03 Dose: 20 mg Documented by: [id number] Imaging Data Radiologist's Impression: XR chest 1V portable HISTORY: Shortness of breath. Cough. COMPARISON: Chest 01/15/2020. FINDINGS: There are low lung volumes. The heart remains mildly enlarged. No evidence for pulmonary edema.. No new focal lung consolidations to suggest pneum onia. Stable hilar prominence suggestive of pulmonary arterial enlargement. No pleural effusion. No pneumothorax. IMPRESSION: No significant change compared to the prior study. No acute process. Stable mild cardiomegaly. Blood Pressure Blood Pressure Findings: Elevated blood pressure Blood Pressure Disposition: further management by hospitalist Discharge Plan Visit Data Chief Complaint: Cough Stated Complaint: COUGH - FLUID IN LUNGS ED Provider: Selvin Parker Discharge Problem: SOB (shortness of breath), Acute bronchitis, Asthma exacerbation Patient Disposition: Being Evaluated by Hospitalist Condition: Fair Forms Stand Alone Forms: [facility] Prescriptions Prescriptions: No Action tamsulosin 0.4 mg capsule 0.4 mg PO QAM Qty: 30 RF: 0 escitalopram oxalate 20 mg tablet 20 mg PO DAILY RF: 0 fluticasone propionate [Flonase Allergy Relief] 50 mcg/actuation Wallace,Suspension 2 spray Intranasal QAM RF: 0 Centrum Silver 0.4-300-250 mg-mcg-mcg Tablet 1 tab PO QAM RF: 0 pantoprazole 20 mg tablet,delayed release (DR/EC) 40 mg PO DAILY RF: 0 atorvastatin 40 mg tablet 40 mg PO HS RF: 0 albuterol sulfate 90 mcg/actuation Hfa Aerosol Inhaler 2 puff INHALATION Q4H PRN (Reason: Cough or Wheezing) RF: 0 oxybutynin chloride 5 mg tablet 5 mg PO BID RF: 0 nadolol 20 mg tablet 40 mg PO DAILY RF: 0 gabapentin 300 mg Capsule 600 mg PO HS RF: 0 gabapentin 300 mg Capsule 300 mg PO DAILYBL RF: 0 sucralfate 1 gram Tablet 1 g PO QID 30 Days Qty: 120 RF: 0 cyclobenzaprine 10 mg Tablet 10 mg PO HS RF: 0 trazodone 50 mg Tablet 50 mg PO HS RF: 0 potassium chloride 10 mEq Tablet Extended Release 10 meq PO DAILY RF: 0 aspirin [Aspir-81] 81 mg Tablet,Delayed Release (Dr/Ec) 81 mg PO QAM RF: 0 ascorbic acid (vitamin C) [Vitamin C] 500 mg Tablet 500 mg PO DAILY RF: 0 gabapentin 300 mg Capsule 300 mg PO QAM RF: 0 furosemide [Lasix] 20 mg Tablet 20 mg PO DAILY PRN (Reason: Edema) RF: 0 Lantus Solostar U-100 Insulin 100 unit/mL (3 mL) Insulin Pen 24 unit SUBCUT HS RF: 0 ferrous sulfate 325 mg (65 mg iron) Tablet 325 mg PO BID RF: 0 nystatin 100,000 unit/gram powder 1 applic TOPICAL TID RF: 0 albuterol sulfate 2.5 mg /3 mL (0.083 %) solution for nebulization 2.5 mg inhalation Q6H PRN (Reason: Wheezing) RF: 0 Ozempic 1 mg/dose (2 mg/1.5 mL) Pen Injector 1 mg SUBCUT WK RF: 0 metformin 1,000 mg tablet 1,000 mg PO BID RF: 0 Trulicity 1.5 mg/0.5 mL pen injector 1.5 mg SUBCUT WK RF: 0 levothyroxine [Synthroid] 200 mcg tablet 200 mcg PO QAM RF: 0 Referrals Referrals: Rajwinder Carter DO [Primary Care Provider] - Discharge Problem: Acute bronchitis Qualifiers: Bronchitis organism: unspecified organism Qualified Code(s): J20.9 - Acute bronchitis, unspecified Asthma exacerbation Qualifiers: Asthma severity: moderate Asthma persistence: unspecified Qualified Code(s): J45.901 - Unspecified asthma with (acute) exacerbation
[2020-02-04 18:51] LABS: INR 1.1 (0.9-1.1); Partial Thromboplastin Ratio 1.1; Partial Thromboplastin Time 30.1 Seconds (21.0-31.0)
[2020-02-04 18:59] LABS: Alanine Aminotransferase 30 U/L (12-78); Albumin Level 3.2 gm/dl (3.4-5.0); Aspartate Aminotransferase 36 U/L (15-37); BUN Creatinine Ratio 18.2 (10-20); Blood Urea Nitrogen 12 mg/dl (7-18); Calcium 8.7 mg/dl (8.5-10.1); Carbon Dioxide 26 mmol/L (21-32); Chloride 110 mmol/L (98-107); Est GFR (African American) 109.3; Est GFR (Non-African American) 94.3; Glucose 227 mg/dl (70-99); Magnesium 2.1 mg/dl (1.8-2.4); Potassium 3.9 mmol/L (3.5-5.1); Sodium 141 mmol/L (136-145)
[2020-02-04 19:04] LABS: Albumin Globulin Ratio 0.8 (0.9-2); Alkaline Phosphatase 125 U/L (45-117); Bilirubin,Total 0.5 mg/dl (0.2-1); NT Pro B Type Natriuretic Pept 130 pg/ml (0-900); Total Protein 7.2 gm/dl (6.4-8.2); Troponin I < 0.015 ng/ml (0-0.045)
[2020-02-04 19:09] LABS: Anisocytosis Present; Basophils # (auto) 0.03 K/uL (0-0.2); Basophils % (auto) 1.1 %; Eosinophils # (auto) 0.26 K/uL (0-0.5); Eosinophils % (auto) 9.4 %; Hematocrit (blood only) 30.7 % (37-47); Hemoglobin 9.3 g/dL (12.0-16.0); Hypochromasia Present; Lymphocytes # (auto) 0.78 K/uL (1.2-3.4); Lymphocytes % (auto) 28.1 %; Mean Corpuscular Hgb Conc 30.3 g/dL (32-36); Mean Corpuscular Volume 105.5 fL (80-100); Mean Platelet Volume 12.2 fL (7.4-10.4); Monocytes # (auto) 0.28 K/uL (0.11-0.59); Monocytes % (auto) 10.1 %; Neutrophils # (auto) 1.43 K/uL (1.4-6.5); Neutrophils % (auto) 51.3 %; Platelet Count 98 K/uL (130-400); RDW Coefficient of Variation 20.6 % (11.5-14.5); RDW Standard Deviation 80.6 fL (36.4-46.3); Red Blood Count 2.91 M/uL (4.2-5.4); Schistocytes Occasional; Tear Drop Cells 1+; White Blood Count 2.78 K/uL (4.8-10.8)
--- NOTE | 2020-02-04 19:41 | XRay Report ---
XR chest 1V portable HISTORY: Shortness of breath. Cough. COMPARISON: Chest 01/15/2020. FINDINGS: There are low lung volumes. The heart remains mildly enlarged. No evidence for pulmonary ed darya.. No new focal lung consolidations to suggest pneumonia. Stable hilar prominence suggestive of pu lmonary arterial enlargement. No pleural effusion. No pneumothorax. IMPRESSION: No significant change compared to the prior study. No acute process. Stable mild cardiomegaly. ACT 112: Negative or not required by law. Electronically signed by: Cecil Matthew M.D. 02/04/2020 7:39 PM
[2020-02-04] MEDS ORDERED: cefTRIAXone SODIUM 2,000 MG/70 ML BAG IV STA (19:46)
--- NOTE | 2020-02-04 21:32 | History & Physical Report ---
Date of Service February 04, 2020 Assessment & Plan (1) SOB (shortness of breath): Multifactorial : ? RLD exacerbation secondary to viral bronchitis, no sepsis Deconditioning, recurrent monthly admissions the last 3 months mood disorder, fibromyalgia, at baseline hypertension, stable BP NAFLD cirrhosis, no overt decompensation DM2 insulin requiring, well-controlled as of recent hemoglobin A1c of 6.12 December 2019 chronic pancytopenia secondary to cirrhosis, hemoglobin at baseline LE swelling ? Secondary to chronic venous insufficiency rule out DVT cerebral palsy as per records, OBS Medical telemetry Supportive management of viral bronchitis Prednisone course, nebs RTC Basal insulin, ISS BG goal [id number], carb count coverage Lasix 1 dose LE venous dopplers ro DVT PT OT eval DVT prophylaxis. SCDs RE thrombocytopenia Full code Text document was generated using [employer] voice recognition software. It may contain grammatical or spelling errors. Kindly contact undersigned for clarification of any documentation item in question. History of Present Illness Primary Care Provider: Rajwinder Carter, Medical history significant for asthma/restrictive lung disease as per records, mood disorder, fibromyalgia, hypertension, hyperlipidemia, NAFLD cirrhosis, THAD on CPAP, DM2 insulin requiring chronic pancytopenia (baseline hemoglobin 8-9), cerebral p alsy as per records, hypothyroidism Recent confinement 2 weeks ago for complicated UTI. Few days history of junky cough symptoms productive of white sputum with shortness of breath and fatigue. No fever, no chest pain. Usual fluid retention that comes and goes as per patient. Denies aspiration. Patient seen at PCPs office. Bilateral rhonchi and wheezing noted on exam. Patient directed to the ER for further evaluation. Patient received ceftriaxone and neb treatment at the ER. MEDICAL HISTORY: As above. SURGICAL HISTORY: She has had dental surgery, gynecologic section, hip surgery, and tendon repair. FAMILY HISTORY: Heart disease. Diabetes PERSONAL AND SOCIAL HISTORY: Nonsmoker. No chronic intake of alcoholic beverages, disabled. Allergies Allergy/AdvReac Type Severity Reaction Status Date / Time Penicillins Allergy Intermediate Rash Verified 02/04/20 19:30 Home Medications Home Medications Medication Instructions Recorded Confirmed Type Lantus Solostar U-100 Insulin 24 unit SUBCUT HS 06/16/18 02/04/20 History ascorbic acid (vitamin C) [Vitamin 500 mg PO DAILY 06/16/18 02/04/20 History C] aspirin [Aspir-81] 81 mg PO QAM 06/16/18 02/04/20 History cyclobenzaprine 10 mg PO HS 06/16/18 02/04/20 History furosemide [Lasix] 20 mg PO DAILY PRN 06/16/18 02/04/20 History gabapentin 300 mg PO QAM 06/16/18 02/04/20 History potassium chloride 10 meq PO DAILY 06/16/18 02/04/20 History trazodone 50 mg PO HS 06/16/18 02/04/20 History Centrum Silver 1 tab PO QAM 07/19/18 02/04/20 History escitalopram oxalate 20 mg PO DAILY 07/19/18 02/04/20 History fluticasone propionate [Flonase 2 spray INTRANASAL QAM 07/19/18 02/04/20 History Allergy Relief] ferrous sulfate 325 mg PO BID 02/21/19 02/04/20 History tamsulosin 0.4 mg capsule 0.4 mg PO QAM #30 cap 06/26/19 02/04/20 History albuterol sulfate 2 puff INHALATION Q4H PRN 09/09/19 02/04/20 History atorvastatin 40 mg PO HS 09/09/19 02/04/20 History nadolol 40 mg PO DAILY 09/09/19 02/04/20 History oxybutynin chloride 5 mg PO BID 09/09/19 02/04/20 History pantoprazole 40 mg PO DAILY 09/09/19 02/04/20 History nystatin 1 applic TOPICAL TID 11/20/19 02/04/20 History Ozempic 1 mg SUBCUT WK 11/28/19 02/04/20 History albuterol sulfate 2.5 mg INHALATION Q6H PRN 11/28/19 02/04/20 History gabapentin 300 mg PO DAILYBL 01/15/20 02/04/20 History gabapentin 600 mg PO HS 01/15/20 02/04/20 History sucralfate 1 g PO QID 30 Days #120 tab 01/20/20 02/04/20 Rx dulaglutide [Trulicity] 1.5 mg SUBCUT WK 02/04/20 02/04/20 History levothyroxine [Synthroid] 200 mcg PO QAM 02/04/20 02/04/20 History metformin 1,000 mg PO BID 02/04/20 02/04/20 History Past Med/Surg History Medical History Acute cystitis (Acute) Ambulatory dysfunction Ambulatory dysfunction (Acute) Anxiety Asthma (Chronic) DOES NOT USE INH. REPORTS USING NEB TREATMENTS BID. Bilateral lower extremity edema (Chronic) Cardiac murmur Cerebral palsy (Chronic) Chest pain (Acute) Chronic back pain Chronic pain (Chronic) Complicated UTI (urinary tract infection) Contusion of knee, right (Acute) Contusion of leg (Acute) Cough CHRONIC PER PT REPORT Dark stools Depression DM type 2 (diabetes mellitus, type 2) (Chronic) IDDM Dyslipidemia (Chronic) Encounter for pre-operative examination Fall (Acute) Fibromyalgia (Chronic) VIDA (generalized anxiety disorder) (Chronic) GERD (gastroesophageal reflux disease) History of kidney stones History of migraine (Chronic) Hoarseness of voice CHRONIC PER PT REPORT Hypertension Hypothyroidism (Chronic) Major depressive disorder, recurrent, moderate (Chronic) NG (nonalcoholic steatohepatitis) (Chronic) Obesity (BMI 30-39.9) Obesity, morbid (more than 100 lbs over ideal weight or BMI > 40) (Chronic) Obstructive sleep apnea (Chronic) CPAP + OXYGEN AT 2 LPM @ NIGHT On home oxygen therapy 2 LPM @ NIGHT + CPAP Osteoarthritis (Chronic) Pancreatic cyst Pleurisy (Acute) Poor historian Right ankle sprain (Acute) Right knee sprain (Acute) SOB (shortness of breath) on exertion Urinary catheter dysfunction (Acute) Venous insufficiency (Chronic) VRE (vancomycin resistant enterococcus) culture positive (Acute) Surgical History H/O Achilles tendon repair (Chronic) H/O section (Chronic) H/O wisdom tooth extraction (Chronic) History of Achilles tendon repair History of section History of colonoscopy History of D&C (Chronic) History of dilatation and curettage History of esophagogastroduodenoscopy (EGD) History of tooth extraction Family History Father Family history of diabetes mellitus Myocardial infarction, Onset Age: 61 Mother Myocardial infarction, Onset Age: 72 Sister Myocardial infarction Social History Preferred Language: Latvian Communication Ability: Effective Nurse Outreach Case Manager Required: No Beliefs That Will Affect Care: None marital status: Current Living Situation: Spouse and Family Current Living Situation Comment: Lives with , Sister and grandson Other Information That Helps Us Care for You: No Feels Safe at Home: Yes Safety Concerns: Feels Safe At This Time Smoking Status: Never smoker Second Hand Exposure: No ; Hx Alcohol Use: No Hx Substance Use: No Review of Systems Review of Systems: GENERAL: Comfortable, slightly anxious, obese, no respiratory distress SKIN: Pallor warm HEENT: Pale palpebral conjunctivae, no ptosis, dry buccal mucosa NECK : Supple, short neck, no tenderness CHEST : Decreased breath sounds , no tenderness HEART : RRR, no obvious murmurs ABDOMEN: Some distention, nontender EXTREMITIES : Minimal LE swelling, no LEtenderness, no other conspicuous deformities noted NEUROLOGIC : Coherent, no facial asymmetry, no other gross focality Physical Exam Physical Exam: GENERAL: uncomfortable, slightly anxious, obese, no respiratory distress SKIN: Pallor warm HEENT: Pale palpebral conjunctivae, no ptosis, dry buccal mucosa NECK : Supple, short neck, no tenderness CHEST : Decreased breath sounds , no tenderness HEART : RRR, no obvious murmurs ABDOMEN: Some distention, nontender EXTREMITIES : LE swelling, no LE tenderness, no other conspicuous deformities noted NEUROLOGIC : Coherent, no facial asymmetry, no other gross focality Results & Data Results & Data ([facility]) Vital Signs (Past 12 Hours) Vital Signs Temp Pulse Pulse Resp BP Pulse Ox 02/04/20 21:00 64 18 138/82 90 02/04/20 20:30 62 16 110/78 93 02/04/20 20:04 63 21 104/66 96 02/04/20 19:31 64 16 128/54 L 94 02/04/20 19:14 64 13 112/89 94 02/04/20 18:56 64 22 125/74 94 02/04/20 18:32 93 02/04/20 18:03 65 24 94 02/04/20 18:01 65 22 94 02/04/20 17:28 37 C 68 22 113/64 93 Laboratory Results Laboratory Results WBC 2.78 K/uL (4.8-10.8) L 02/04/20 18:28 RBC 2.91 M/uL (4.2-5.4) L 02/04/20 18:28 Hgb 9.3 g/dL (12.0-16.0) L 02/04/20 18: Hct 30.7 % (37-47) L 02/04/20 18: MCV 105.5 fL (80-100) H 02/04/20 18: MCH 32.0 pg (25-34) 02/04/20 18: MCHC 30.3 g/dL (32-36) L 02/04/20 18: RDW Std Deviation 80.6 fL (36.4-46.3) H 02/04/20 18: RDW Coeff of Bradley 20.6 % (11.5-14.5) H 02/04/20 18: Plt Count 98 K/uL (130-400) L 02/04/20 18: MPV 12.2 fL (7.4-10.4) H 02/04/20 18: Immature Gran % (Auto) 0.0 % 02/04/20 18: Neut % (Auto) 51.3 % 02/04/20 18: Lymph % (Auto) 28.1 % 02/04/20 18: [place] % (Auto) 10.1 % 02/04/20 18: Eos % (Auto) 9.4 % 02/04/20 18: Baso % (Auto) 1.1 % 02/04/20 18: Immature Gran # (Auto) 0.00 K/uL (0.00-0.02) 02/04/20 18: Neut # (Auto) 1.43 K/uL (1.4-6.5) 02/04/20 18: Lymph # (Auto) 0.78 K/uL (1.2-3.4) L 02/04/20 18: [place] # (Auto) 0.28 K/uL (0.11-0.59) 02/04/20 18: Eos # (Auto) 0.26 K/uL (0-0.5) 02/04/20 18: Baso # (Auto) 0.03 K/uL (0-0.2) 02/04/20 18: Hypochromasia Present 02/04/20 18:28 Anisocytosis Present 02/04/20 18: Tear Drop Cells 1+ 02/04/20: Schistocytes Occasional 02/04/20 18: PT 12.0 Seconds (9.0-12.0) 02/04/20 18: INR 1.1 (0.9-1.1) 02/04/20 18: APTT 30.1 Seconds (21.0-31.0) 02/04/20 18: PTT Ratio 1.1 02/04/20 18: Sodium 141 mmol/L (136-145) 02/04/20 18: Potassium 3.9 mmol/L (3.5-5.1) 02/04/20 18: Chloride 110 mmol/L (98-107) H 02/04/20 18: Carbon Dioxide 26 mmol/L (21-32) 02/04/20: Anion Gap 5.0 (3-11) 02/04/20 18: BUN 12 mg/dl (7-18) 02/04/20: Creatinine 0.64 mg/dl (0.6-1.2) 02/04/20 Est Cr Clr Drug Dosing Not Reportable 02/04/20 18 Est GFR ( Amer) 109.3 02/04/20 18: Est GFR (Non-Af Amer) 94.3 02/04/20 18 BUN/Creatinine Ratio 18.2 (10-20) 02/04/20 18: Glucose 227 mg/dl (70-99) H 02/04/20 18: Lactate 1.5 mmol/L (0.4-2.0) 02/04/20 18: Calcium 8.7 mg/dl (8.5-10.1) 02/04/20 18: Magnesium 2.1 mg/dl (1.8-2.4) 02/04/20 18: Total Bilirubin 0.5 mg/dl (0.2-1) 02/04/20 18: AST 36 U/L (15-37) 02/04/20 18: ALT 30 U/L (12-78) 02/04/20 18: Alkaline Phosphatase 125 U/L (45-117) H 02/04/20 18: Troponin I < 0.015 ng/ml (0-0.045) 02/04/20 18:28 NT-Pro-B Natriuret Pep 130 pg/ml (0-900) 02/04/20 18:28 Total Protein 7.2 gm/dl (6.4-8.2) 02/04/20 18:28 Albumin 3.2 gm/dl (3.4-5.0) L 02/04/20 18:28 Globulin 4.0 gm/dl (2.5-4.0) 02/04/20 18: Albumin/Globulin Ratio 0.8 (0.9-2) L 02/04/20 18:28 Diagnostic Findings Chest x-ray : No significant change compared to the prior study. No acute process. Stable mild cardiomegaly. EKG as per my interpretation : Rate 65, NSR, normal axis, 1 AVB, T wave flattening septal leads, low voltage
[2020-02-04 22:01] LABS: Influenza A virus by PCR Neg for Influ A (Neg); Influenza B virus by PCR Neg for Influ B (Neg)
[2020-02-04] MEDS ORDERED: methylPREDNISolone 40 MG in SYRINGE 0 ML IV STA (22:25)
[2020-02-04] MEDS ORDERED: INSULIN GLARGINE SOLOSTAR 100 UNITS/ML 3 ML PEN SC STA (22:36)
[2020-02-04] MEDS ORDERED: DEXTROSE 50% 50 ML SYRINGE IV PRN (22:37)
[2020-02-04] MEDS ORDERED: GLUCAGON FOR INJ 1 MG VIAL SQ PRN (22:37)
[2020-02-04] MEDS ORDERED: CARBOHYDRATES FOR HYPOGLYCEMIA PO PRN (22:37)
[2020-02-04] MEDS ORDERED: GLUCOSE 10 TABS/TUBE PO PRN (22:37)
[2020-02-04] MEDS ORDERED: GLUCOSE 40% GEL 15 GM TUBE PO PRN (22:37)
[2020-02-04] MEDS: INSULIN ASPART 100 UNITS/ML 3 ML PEN SC SCH (23:03)
[2020-02-05] MEDS ORDERED: ALBUMIN 25% 50 ML with FUROSEMIDE 20 MG IV ONE (00:31)
[2020-02-05] MEDS: ALBUT/IPRATROP 3MG/0.5MG NEB 3 ML VIAL NEB SCH ×4 (02:07→15:48)
[2020-02-05] MEDS ORDERED: LEVOTHYROXINE SODIUM 200 MCG TABLET PO SCH (06:30)
[2020-02-05 06:49] LABS: Calcium 8.8 mg/dl (8.5-10.1); Creatinine Clr Calc Pharmacy 93.4 ml/min; Est GFR (African American) 104.3; Potassium 3.9 mmol/L (3.5-5.1)
[2020-02-05 06:56] LABS: Basophils # (auto) 0.01 K/uL (0-0.2); Basophils % (auto) 0.5 %; Eosinophils # (auto) 0.03 K/uL (0-0.5); Eosinophils % (auto) 1.5 %; Hematocrit (blood only) 30.7 % (37-47); Hemoglobin 9.5 g/dL (12.0-16.0); Lymphocytes # (auto) 0.54 K/uL (1.2-3.4); Lymphocytes % (auto) 26.7 %; Mean Corpuscular Hemoglobin 32.4 pg (25-34); Mean Corpuscular Hgb Conc 30.9 g/dL (32-36); Mean Corpuscular Volume 104.8 fL (80-100); Mean Platelet Volume 12.5 fL (7.4-10.4); Monocytes # (auto) 0.03 K/uL (0.11-0.59); Monocytes % (auto) 1.5 %; Neutrophils # (auto) 1.41 K/uL (1.4-6.5); Neutrophils % (auto) 69.8 %; Platelet Count 89 K/uL (130-400); Platelet Estimate Decreased (Normal); Red Blood Count 2.93 M/uL (4.2-5.4); Tear Drop Cells 1+; White Blood Count 2.02 K/uL (4.8-10.8)
--- NOTE | 2020-02-05 07:22 | Ultrasound Report ---
US venous doppler LE BI CLINICAL HISTORY: leg swelling COMPARISON STUDY: 01/15/2020 FINDINGS: Real-time and color flow Doppler imaging were performed. Flow was seen within the femoral, popliteal and calf veins with no intraluminal thrombus demonstrated. The saphenous vein is patent. Th ere are mildly prominent bilateral inguinal lymph nodes. IMPRESSION: 1. No evidence of lower extremity DVT 2. Mildly prominent bilateral inguinal lymph nodes. ACT 112: Negative or not required by law. Electronically signed by: Caesar Pedroza M.D. 02/05/2020 7:21 AM
[2020-02-05] MEDS ORDERED: INSULIN ASPART 100 UNITS/ML 3 ML PEN SC STA (08:47)
[2020-02-05] MEDS: SUCRALFATE 1 GM TAB PO SCH ×2 (08:52→11:49)
[2020-02-05] MEDS: INSULIN ASPART 100 UNITS/ML 3 ML PEN SC SCH ×2 (08:58→13:08)
[2020-02-05] MEDS ORDERED: GABAPENTIN 300 MG CAP PO SCH ×3 (09:00→21:00)
[2020-02-05] MEDS ORDERED: ASCORBIC ACID 500 MG TAB PO SCH (09:00)
[2020-02-05] MEDS ORDERED: TAMSULOSIN HCL 0.4 MG CAP PO SCH (09:00)
[2020-02-05] MEDS ORDERED: OXYBUTYNIN CHLORIDE 5 MG TAB PO SCH (09:00)
[2020-02-05] MEDS ORDERED: ASPIRIN 81 MG ECTAB PO SCH (09:00)
[2020-02-05] MEDS ORDERED: ESCITALOPRAM OXALATE 20 MG TAB PO SCH (09:00)
[2020-02-05] MEDS ORDERED: PANTOprazole 40 MG TAB PO SCH (09:00)
[2020-02-05] MEDS ORDERED: FERROUS SULFATE 325 MG TAB PO SCH (09:00)
[2020-02-05] MEDS ORDERED: predniSONE 20 MG TAB PO SCH (09:00)
[2020-02-05] MEDS ORDERED: nadoloL 40 MG TAB PO SCH (09:00)
[2020-02-05] MEDS ORDERED: FLUTICASONE PROPIONATE NA SPR 16 GM BTL SCH (09:00)
[2020-02-05] MEDS ORDERED: ACETAMINOPHEN 325 MG TAB PO PRN (11:12)
[2020-02-05 12:19] VITALS: BP 128/78; PULSE 84; TEMP 97.9; O2SAT 91
--- NOTE | 2020-02-05 13:21 | Electrocardiogram Report ---
Test Reason : Blood Pressure : / mmHG Vent. Rate : 065 BPM Atrial Rate : 065 BPM P-R Int : 248 ms QRS Dur : 094 ms QT Int : 430 ms P-R-T Axes : 027 -05 050 degrees QTc Int : 447 ms Poor data quality, interpretation may be adversely affected Sinus rhythm with 1st degree A-V block Low voltage QRS Abnormal ECG When compared with ECG of 15-JAN-2020 13:23, No significant change was found Confirmed by Papito Hull ([id number]) on 02/05/2020 1:20:59 PM Referred By: REFERRED SELF Confirmed By:Papito Hull
--- NOTE | 2020-02-05 13:49 | Hospitalist Progress Note ---
Date of Service February 05, 2020 Assessment & Plan (1) SOB (shortness of breath): Type 2 Diabetes Mellitus with intermediate designer current use of insulin -Patient was sent to hospital by primary care doctor because of shortness of breath, cough, and for rule out CHF and rule out pneumonia -XR chest 1V portable FINDINGS: There are low lung volumes. The heart remains mildly enlarged. No evidence for pulmonary edema.. No new focal lung consolidations to suggest pneumonia. Stable hilar prominence suggestive of pulmonary arterial enlargement. No pleural effusion. No pneumothorax. IMPRESSION: No significant change compared to the prior study. No acute process. Stable mild cardiomegaly. -Patient has not been hypoxic, no acute telemetry events were found -Patient's symptoms appears resolved after nebulizer treatment and steroids in the hospital. No further steroid course noted as clinically at baseline. No wheezing on current lung exam. Patient's blood glucose was somewhat elevated because of hospital steroids and was given additional insulin. -Patient should follow up: with primary care doctor 02/10/2020 10:20 AM Provider Rajwinder Carter DO Department [facility] 02/10/2020 1:30 PM Provider Chair 10 Hem Onc [facility] Department Hematology/Oncology Treatment, [place] 02/28/2020 12:00 PM Provider ZAK Bolton Department Gastroenterology, [facility] 03/11/2020 3:00 PM Provider Rajwinder Carter DO Department [facility] Admission and Anticipated Discharge Date Admission Date: February 04, 2020 Subjective Patient breathing on room air. no shortness of breath. no wheezing. no acute chest pain. no acute telemetry events. no abdominal pain. discharge plans discussed with patient Review of Systems Review of Systems: All systems reviewed & are unremarkable except as noted in Subjective Physical Exam Constitutional: + obese Eyes: PERRL, conjunctivae normal, anicteric sclerae EOM intact bilaterally ENMT: external ear and nose normal, oropharynx normal Respiratory: normal respiratory effort, lungs clear to auscultation Cardiovascular: Rate/Rhythm: regular rate and regular rhythm Gastrointestinal (Abdomen): normal bowel sounds, soft, nontender, no hepatosplenomegaly Musculoskeletal: Head/Neck/Chest: normocephalic and head atraumatic Neurologic: PERRL, EOMI, accommodation nl, no face palsy, no dysarthria CN's II-XI intact bilaterally Psychiatric: A+Ox3, euthymic affect Results & Data Results & Data ([facility]) Vital Signs (Past 12 Hours) Vital Signs Temp Pulse Pulse Resp BP Pulse Ox 02/05/20 12:19 36.6 C 84 18 128/78 91 02/05/20 11:15 71 16 96 02/05/20 07:01 65 16 94 02/05/20 06:40 36.5 C 56 L 19 115/63 90 02/05/20 04:48 61 18 94 02/05/20 04:22 59 L 14 96 02/05/20 02:07 75 18 91 02/05/20 01:56 60
--- NOTE | 2020-02-05 13:51 | Discharge Summary ---
Date of Service February 05, 2020 Admission HPI Per Admitting Provider Medical history significant for asthma/restrictive lung disease as per records, mood disorder, fibromyalgia, hypertension, hyperlipidemia, NAFLD cirrhosis, THAD on CPAP, DM2 insulin requiring chronic pancytopenia (baseline hemoglobin 8-9), cerebral palsy as per records, hypothyroidism Recent confinement 2 weeks ago for complicated UTI. Few days history of junky cough symptoms productive of white sputum with shortness of breath and fatigue. No fever, no chest pain. Usual fluid retention that comes and goes as per patient. Denies aspiration. Patient seen at PCPs office. Bilateral rhonchi and wheezing noted on exam. Patient directed to the ER for further evaluation. Patient received ceftriaxone and neb treatment at the ER. MEDICAL HISTORY: As above. SURGICAL HISTORY: She has had dental surgery, gynecologic section, hip surgery, and tendon repair. FAMILY HISTORY: Heart disease. Diabetes PERSONAL AND SOCIAL HISTORY: Nonsmoker. No chronic intake of alcoholic beverages, disabled. 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 Discharge Exam Constitutional + obese Eyes PERRL, conjunctivae normal, anicteric sclerae EOM intact bilaterally ENMT external ear and nose normal, oropharynx normal Respiratory normal respiratory effort, lungs clear to auscultation Cardiovascular Rate/Rhythm: regular rate and regular rhythm Gastrointestinal (Abdomen) normal bowel sounds, soft, nontender, no hepatosplenomegaly Musculoskeletal Head/Neck/Chest: normocephalic and head atraumatic Neurologic PERRL, EOMI, accommodation nl, no face palsy, no dysarthria CN's II-XI intact bilaterally Psychiatric A+Ox3, euthymic affect Discharge Data Allergies Allergy/AdvReac Type Severity Reaction Status Date / Time Penicillins Allergy Intermediate Rash Verified 02/04/20 19:30 Consultations 02/04/20 20:03 ED Decision to Admit Stat 02/05/20 01:51 Consult Case Management - Discharge Planning Routine Ordered Studies 02/05/20 01:51 US venous doppler MARCK JOEL Urgent Hospital Course (1) SOB (shortness of breath): Type 2 Diabetes Mellitus with intermediate teacher current use of insulin -Patient was sent to hospital by primary care doctor because of shortness of breath, cough, and for rule out CHF and rule out pneumonia -XR chest 1V portable FINDINGS: There are low lung volumes. The heart remains mildly enlarged. No evidence for pulmonary edema.. No new focal lung consolidations to suggest pneumonia. Stable hilar prominence suggestive of pulmonary arterial enlargement. No pleural effusion. No pneumothorax. IMPRESSION: No significant change compared to the prior study. No acute process. Stable mild cardiomegaly. -Patient has not been hypoxic, no acute telemetry events were found -Patient's symptoms appears resolved after nebulizer treatment and steroids in the hospital. No further steroid course noted as clinically at baseline. No wheezing on current lung exam. Patient's blood glucose was somewhat elevated because of hospital steroids and was given additional insulin. -Patient should follow up: with primary care doctor 02/10/2020 10:20 AM Provider Rajwinder Carter DO Department [facility] 02/10/2020 1:30 PM Provider Chair 10 [facility] Department Hematology/Oncology Treatment, [place] 02/28/2020 12:00 PM Provider ZAK Bolton Department Gastroenterology, [facility] 03/11/2020 3:00 PM Provider Rajwinder Carter DO Department [facility] Total Time Total Time Spent Total Time Spent (In Minutes): 40 minutes Total Time Includes: Examination of the Patient, Discharge Planning, Medication Reconciliation and Communication With Other Providers Discharge Plan Discharge Items Patient Disposition: Home - Self-Care Reason For Visit: SOB Discharge Diagnosis: Shortness of Breath. Type 2 diabetes mellitus with termite treater helper current of insulin Condition on Discharge: Fair Activity: Resume your previous activity Non-emergency contact: Primary Care Provider Call non-emergency contact if: you have any medication questions Follow-up/Referrals: Rajwinder Carter DO [Primary Care Provider] - Diet: Carb Consistent or DM2 and Heart Healthy Addtl Attending Provider Instructions: Patient was sent to hospital by primary care doctor because of shortness of breath, cough, and for rule out CHF and rule out pneumonia XR chest 1V portable FINDINGS: There are low lung volumes. The heart remains mildly enlarged. No evidence for pulmonary edema.. No new focal lung consolidations to suggest pneumonia. Stable hilar prominence suggestive of pulmonary arterial enlargement. No pleural effusion. No pneumothorax. IMPRESSION: No significant change compared to the prior study. No acute process. Stable mild cardiomegaly. Patient has not been hypoxic, no acute telemetry events were found Patient's symptoms appears resolved after nebulizer treatment and steroids in the hospital. No further steroid course noted as clinically at baseline. No wheezing on current lung exam. Patient's blood glucose was somewhat elevated because of hospital steroids and was given additional insulin. Patient should follow up with primary care doctor 02/10/2020 10:20 AM Provider Rajwinder Carter DO Department Family Practice [facility] 02/10/2020 1:30 PM Provider Chair 10 Hem Onc [facility] Department Hematology/Oncology Treatment, [place] 02/28/2020 12:00 PM Provider ZAK Bolton Department Gastroenterology, [facility] 03/11/2020 3:00 PM Provider DO Ciarra Andre [facility] Pending Studies at Discharge: No Stand-Alone Forms: My [facility], Smoking Cessation Medications and DC Order Prescriptions: Continued tamsulosin 0.4 mg capsule 0.4 mg PO QAM Qty: 30 RF: 0 escitalopram oxalate 20 mg tablet 20 mg PO DAILY RF: 0 fluticasone propionate [Flonase Allergy Relief] 50 mcg/actuation [place],Suspension 2 spray Intranasal QAM RF: 0 Centrum Silver 0.4-300-250 mg-mcg-mcg Tablet 1 tab PO QAM RF: 0 pantoprazole 20 mg tablet,delayed release (DR/EC) 40 mg PO DAILY RF: 0 atorvastatin 40 mg tablet 40 mg PO HS RF: 0 albuterol sulfate 90 mcg/actuation Hfa Aerosol Inhaler 2 puff INHALATION Q4H PRN (Reason: Cough or Wheezing) RF: 0 oxybutynin chloride 5 mg tablet 5 mg PO BID RF: 0 nadolol 20 mg tablet 40 mg PO DAILY RF: 0 gabapentin 300 mg Capsule 600 mg PO HS RF: 0 gabapentin 300 mg Capsule 300 mg PO DAILYBL RF: 0 sucralfate 1 gram Tablet 1 g PO QID 30 Days Qty: 120 RF: 0 cyclobenzaprine 10 mg Tablet 10 mg PO HS RF: 0 trazodone 50 mg Tablet 50 mg PO HS RF: 0 potassium chloride 10 mEq Tablet Extended Release 10 meq PO DAILY RF: 0 aspirin [Aspir-81] 81 mg Tablet,Delayed Release (Dr/Ec) 81 mg PO QAM RF: 0 ascorbic acid (vitamin C) [Vitamin C] 500 mg Tablet 500 mg PO DAILY RF: 0 gabapentin 300 mg Capsule 300 mg PO QAM RF: 0 furosemide [Lasix] 20 mg Tablet 20 mg PO DAILY PRN (Reason: Edema) RF: 0 Lantus Solostar U-100 Insulin 100 unit/mL (3 mL) Insulin Pen 24 unit SUBCUT HS RF: 0 ferrous sulfate 325 mg (65 mg iron) Tablet 325 mg PO BID RF: 0 nystatin 100,000 unit/gram powder 1 applic TOPICAL TID RF: 0 albuterol sulfate 2.5 mg /3 mL (0.083 %) solution for nebulization 2.5 mg inhalation Q6H PRN (Reason: Wheezing) RF: 0 Ozempic 1 mg/dose (2 mg/1.5 mL) Pen Injector 1 mg SUBCUT WK RF: 0 metformin 1,000 mg tablet 1,000 mg PO BID RF: 0 Trulicity 1.5 mg/0.5 mL pen injector 1.5 mg SUBCUT WK RF: 0 levothyroxine [Synthroid] 200 mcg tablet 200 mcg PO QAM RF: 0 Discharge Orders: Discharge Order (Routine); Ordered 02/05/20 Ordered By: Edgar Rose Admission Data Admit Date/Time: 02/04/20 22:30 Attending Provider: Edgar Rose Admit Provider: Glen Huber Primary Care Provider: Rajwinder Carter Other Providers: Glen Huber
[2020-02-05] MEDS ORDERED: INSULIN GLARGINE SOLOSTAR 100 UNITS/ML 3 ML PEN SC SCH (21:00)
[2020-02-05] MEDS ORDERED: TRAZODONE HCL 50 MG TAB PO SCH (21:00)
[2020-02-05] MEDS ORDERED: ATORVASTATIN 40 MG TAB PO SCH (21:00)
== END 2020-02-05 16:42 | disposition home or self-care (01) ==
LOC: 2W 17:16 → ED 17:16 → 2W 02-05 01:14

== ENCOUNTER 2020-02-21 18:02 | Observation (INO) ==
[2020-02-21] MEDS ORDERED: ONDANSETRON INJ 2 MG/ML 2 ML VIAL IV STA (19:10)
[2020-02-21] MEDS ORDERED: KETOROLAC TROMETHAMINE 15 MG/ML VIAL IV STA (19:10)
[2020-02-21] MEDS ORDERED: ACETAMINOPHEN 1000 MG/100 ML IV IV STA (19:10)
--- NOTE | 2020-02-21 19:14 | Emergency Department Note ---
Impression & Plan Right sided abdominal pain, Acute pyelonephritis, Acute hyperglycemia, Pancytopenia ED Provider Note NAME: RYLAND SHAW AGE: 64 SEX: F : 1955 ARRIVES VIA: Walk-In INFORMANT: [Patient] ED PROVIDER(S): [Selvin Parker MD] CHIEF COMPLAINT: Abdominal pain HISTORY OF PRESENT ILLNESS: The patient is a 64-year-old female who has had a right sided abdominal pain for about 1.5 days. The pain is a 10/10 and worse with movement and palpation. She has had one episode of vomiting. She feels nauseated. No documented fever. No urinary complaints, no diarrhea. No cough cold or congestion. No shortness of breath. She has not suffered trauma. She is concerned that this could be her appendix. Of note, the patient did have a catheterized urine specimen performed 3 days ago, so far, the urine culture has returned negative. REVIEW OF SYSTEMS: See HPI for pertinent positives and negatives. A total of ten systems were reviewed and were otherwise negative. PMHx/PSHx: See Below SOCIAL HISTORY: See Below. PHYSICAL EXAM: GENERAL: Patient is in no acute distress. HEENT: No acute trauma, normocephalic atraumatic, mucous membranes moist, no nasal congestion, no scleral icterus. NECK: No stridor, no adenopathy, no meningismus, trachea is midline. LUNGS: She has some scattered wheezes bilaterally, no crackles, no respiratory distress. Breath sounds are equal. HEART: Without murmurs gallops or rubs but heart tones are very distant, regular rate and rhythm. ABDOMEN: Soft, moderate tenderness along the entire right side of the abdomen, bowel sounds positive, no hernias, no peritonitis. EXTREMITIES: No cyanosis, significant bilateral pedal edema, full range of motion of all the joints without pain or difficulty, no signs for acute trauma. NEUROLOGIC: Oriented x 3, no acute motor or sensory deficits, no focal weakness. SKIN: No rash, no jaundice, no diaphoresis. Somewhat pale. DIFFERENTIAL DIAGNOSIS: Appendicitis, ovarian cyst, ovarian torsion, TOA, PID, infections, diverticulitis, UTI, obstruction, mesenteric ischemia, aortic pathology, inflammatory bowel disease, renal colic, PUD, pancreatitis, biliary pathology, hernia, volvulus, constipation, as well as other pathologies. EMERGENCY DEPARTMENT COURSE/PROCEDURES: Continuous Cardiac Monitoring: An order was placed for continuous cardiac monitoring. The monitor shows a rate of 66 with normal sinus rhythm. MEDICAL DECISION MAKING: There is a lower white count and hemoglobin and platelet count. This is baseline looking back at the patient's previous testing. No kidney failure. Glucose was quite high at 362. There were a few subtle liver enzyme elevations although, the bilirubin was normal. Urinalysis was consistent with infection. Urine culture is pending. Chest film showed some congestion consistent I think with her body habitus, there was no pneumonia or free air. Abdominal and pelvis CT does not show any appendicitis or urinary obstruction. No acute surgical process by CT scan. The patient received IV Tylenol for pain, IV Toradol for pain. She was given IV Zofran. She received IV saline, 1 L. She received a total of 16 units of IV insulin for her higher blood sugar. She was given 2 g of IV ceftriaxone for the presumed pyelonephritis. Of note, blood sugar is now in the 200s. The patient is borderline hypotensive. She has right-sided abdominal pain. She has a lot of ongoing past medical issues. She appears to have a pyelonephritis causing her presentation today. I think given her situation, given her findings, a hospitalization is warranted. I spoke to the patient, I talked with case management. The on-call hospitalist was consulted. Past Med/Surg History Medical History Acute cystitis (Acute) Ambulatory dysfunction Ambulatory dysfunction (Acute) Anxiety Asthma (Chronic) DOES NOT USE INH. REPORTS USING NEB TREATMENTS BID. Bilateral lower extremity edema (Chronic) Cardiac murmur Cerebral palsy (Chronic) Chest pain (Acute) Chronic back pain Chronic pain (Chronic) Complicated UTI (urinary tract infection) Contusion of knee, right (Acute) Contusion of leg (Acute) Cough CHRONIC PER PT REPORT Dark stools Depression DM type 2 (diabetes mellitus, type 2) (Chronic) IDDM Dyslipidemia (Chronic) Encounter for pre-operative examination Fall (Acute) Fibromyalgia (Chronic) VIDA (generalized anxiety disorder) (Chronic) GERD (gastroesophageal reflux disease) History of kidney stones History of migraine (Chronic) Hoarseness of voice CHRONIC PER PT REPORT Hypertension Hypothyroidism (Chronic) Major depressive disorder, recurrent, moderate (Chronic) NG (nonalcoholic steatohepatitis) (Chronic) Obesity (BMI 30-39.9) Obesity, morbid (more than 100 lbs over ideal weight or BMI > 40) (Chronic) Obstructive sleep apnea (Chronic) CPAP + OXYGEN AT 2 LPM @ NIGHT On home oxygen therapy 2 LPM @ NIGHT + CPAP Osteoarthritis (Chronic) Pancreatic cyst Pleurisy (Acute) Poor historian Right ankle sprain (Acute) Right knee sprain (Acute) SOB (shortness of breath) on exertion Urinary catheter dysfunction (Acute) Venous insufficiency (Chronic) VRE (vancomycin resistant enterococcus) culture positive (Acute) Surgical History H/O Achilles tendon repair (Chronic) H/O section (Chronic) H/O wisdom tooth extraction (Chronic) History of Achilles tendon repair History of section History of colonoscopy History of D&C (Chronic) History of dilatation and curettage History of esophagogastroduodenoscopy (EGD) History of tooth extraction Family History Father Family history of diabetes mellitus Myocardial infarction, Onset Age: 61 Mother Myocardial infarction, Onset Age: 72 Sister Myocardial infarction Social History Preferred Language: Palestinian Communication Ability: Effective House Admin Required: No Beliefs That Will Affect Care: None marital status: Current Living Situation: Spouse and Family Current Living Situation Comment: Lives with , Sister and grandson Feels Safe at Home: Yes Smoking Status: Unknown if ever smoked Hx Alcohol Use: No Hx Substance Use: No Allergies Allergies Allergy/AdvReac Type Severity Reaction Status Date / Time Penicillins Allergy Intermediate Rash Verified 02/21/20 20:53 Home Meds Home Medications Medication Instructions Recorded Confirmed Lantus Solostar U-100 Insulin 24 unit SUBCUT HS 06/16/18 02/21/20 ascorbic acid (vitamin C) [Vitamin 500 mg PO QAM 06/16/18 02/21/20 C] aspirin [Aspir-81] 81 mg PO QAM 06/16/18 02/21/20 cyclobenzaprine 10 mg PO HS 06/16/18 02/21/20 furosemide [Lasix] 20 mg PO QAM PRN 06/16/18 02/21/20 gabapentin [Neurontin] 300 mg PO QAM 06/16/18 02/21/20 potassium chloride [K-Tab] 10 meq PO QDL 06/16/18 02/21/20 trazodone 50 mg PO HS 06/16/18 02/21/20 Centrum Silver 1 tab PO QAM 07/19/18 02/21/20 escitalopram oxalate [Lexapro] 20 mg PO DAILY 07/19/18 02/21/20 fluticasone propionate [Flonase 2 spray INTRANASAL QAM 07/19/18 02/21/20 Allergy Relief] ferrous sulfate 325 mg PO BID 02/21/19 02/21/20 tamsulosin 0.4 mg capsule 0.4 mg PO QAM #30 cap 06/26/19 02/21/20 albuterol sulfate [Ventolin HFA] 2 puff INHALATION Q4H PRN 09/09/19 02/21/20 atorvastatin [Lipitor] 40 mg PO HS 09/09/19 02/21/20 nadolol [Corgard] 40 mg PO DAILY 09/09/19 02/21/20 oxybutynin chloride 5 mg PO BID 09/09/19 02/21/20 pantoprazole [Protonix] 40 mg PO QAM 09/09/19 02/21/20 nystatin [Nyamyc] 1 applic TOPICAL TID 11/20/19 02/21/20 Ozempic 1 mg SUBCUT MO 11/28/19 02/21/20 albuterol sulfate 2.5 mg INHALATION Q6H PRN 11/28/19 02/21/20 gabapentin [Neurontin] 300 mg PO DAILYBL 01/15/20 02/21/20 gabapentin [Neurontin] 600 mg PO HS 01/15/20 02/21/20 Trulicity 1.5 mg SUBCUT WK 02/04/20 02/21/20 levothyroxine [Synthroid] 200 mcg PO QAM 02/04/20 02/21/20 metformin [Glucophage] 1,000 mg PO BID 02/04/20 02/21/20 Results & Data (ED) Vital Signs Vital Signs - 24 hr 02/21/20 18:09 02/21/20 19:57 02/21/20 20:15 Temperature 36.8 C Temperature Source Oral Pulse Rate 66 Pulse Rate [Right Finger] Pulse Rhythm Regular Pulse Strength Normal Respiratory Rate 20 20 Respiratory Effort / Characteristics Non-Labored Respiratory Depth Normal Normal Respiratory Pattern Regular Blood Pressure 136/78 Blood Pressure [Right Arm] 99/76 L Blood Pressure Mean 97 Blood Pressure Mean [Right Arm] 83 Blood Pressure Position Sitting Blood Pressure Position [Right Arm] Lying Pulse Oximetry 92 97 94 Oxygen Delivery Method Room Air Room Air Room Air Sepsis Recent Fever Within 48 Hours No Sepsis Action Taken by Nursing No Action Required 02/21/20 22:00 Temperature Temperature Source Pulse Rate Pulse Rate [Right Finger] 72 Pulse Rhythm Pulse Strength Respiratory Rate 18 Respiratory Effort / Characteristics Respiratory Depth Respiratory Pattern Blood Pressure Blood Pressure [Right Arm] 112/68 Blood Pressure Mean Blood Pressure Mean [Right Arm] 82 Blood Pressure Position Blood Pressure Position [Right Arm] Lying Pulse Oximetry 94 Oxygen Delivery Method Room Air Sepsis Recent Fever Within 48 Hours Sepsis Action Taken by Custodial Medications Current Medication List: was personally reviewed by me Laboratory Data Attestation: I reviewed the patient's lab results. Result diagrams: 02/21/20 19:43 02/21/20 19:43 Lab Results 02/21/20 02/21/20 02/21/20 Range/Units 19:43 19:43 20:15 WBC 3.27 L (4.8-10.8) K/uL RBC 2.98 L (4.2-5.4) M/uL Hgb 9.8 L (12.0-16.0) g/dL Hct 32.2 L (37-47) % MCV 108.1 H (80-100) fL MCH 32.9 (25-34) pg MCHC 30.4 L (32-36) g/dL RDW Std Deviation 75.2 H (36.4-46.3) fL RDW Coeff of Bradley 19.0 H (11.5-14.5) % Plt Count 86 L (130-400) K/uL MPV 13.4 H (7.4-10.4) fL Immature Gran % (Auto) 0.0 % Neut % (Auto) 62.4 % Lymph % (Auto) 23.2 % [place] % (Auto) 8.6 % Eos % (Auto) 5.2 % Baso % (Auto) 0.6 % Immature Gran # (Auto) 0.00 (0.00-0.02) K/uL Neut # (Auto) 2.04 (1.4-6.5) K/uL Lymph # (Auto) 0.76 L (1.2-3.4) K/uL [place] # (Auto) 0.28 (0.11-0.59) K/uL Eos # (Auto) 0.17 (0-0.5) K/uL Baso # (Auto) 0.02 (0-0.2) K/uL Absolute Nucleated RBC 0.02 H (0-0) K/uL Nucleated RBC % (auto) 0.7 % Platelet Estimate Decreased L (Normal) Tear Drop Cells 1+ Sodium 140 (136-145) mmol/L Potassium 3.9 (3.5-5.1) mmol/L Chloride 107 (98-107) mmol/L Carbon Dioxide 25 (21-32) mmol/L Anion Gap 8.0 (3-11) BUN 10 (7-18) mg/dl Creatinine 0.89 (0.6-1.2) mg/dl Est Cr Clr Drug Dosing Not Reportable Est GFR ( Amer) 79.4 Est GFR (Non-Af Amer) 68.5 BUN/Creatinine Ratio 11.2 (10-20) Glucose 362 H* (70-99) mg/dl POC Glucose (70-99) mg/dl Calcium 8.6 (8.5-10.1) mg/dl Total Bilirubin 0.5 (0.2-1) mg/dl AST 40 H (15-37) U/L ALT 36 (12-78) U/L Alkaline Phosphatase 150 H (45-117) U/L Total Protein 7.0 (6.4-8.2) gm/dl Albumin 3.1 L (3.4-5.0) gm/dl Globulin 3.9 (2.5-4.0) gm/dl Albumin/Globulin Ratio 0.8 L (0.9-2) Lipase 62 L (73-393) U/L Beta-Hydroxybutyric Acd (0.2-2.81) mg/dl Urine Color Yellow Urine Appearance Cloudy A (Clear) Urine pH 5.0 (4.5-7.5) Ur Specific [place] 1.040 H (1.000-1.030) Urine Protein Negative (Negative) Urine Glucose (UA) 3+ H (Negative) Urine Ketones Trace H (Negative) Urine Blood 1+ H (Negative) Urine Nitrite Positive A (Negative) Urine Bilirubin Negative (Negative) Urine Urobilinogen Negative (Negative) Ur Leukocyte Esterase Trace H (Negative) Urine WBC (Auto) >30 H (0-5) /hpf Urine RBC (Auto) 5-10 H (0-4) /hpf U Hyaline Cast (Auto) 1-5 (0-5) /lpf U Epithel Cells (Auto) 10-20 H (0-5) /lpf Urine Bacteria (Auto) 3+ H (Negative) 02/21/20 02/21/20 Range/Units 21:45 22:09 WBC (4.8-10.8) K/uL RBC (4.2-5.4) M/uL Hgb (12.0-16.0) g/dL Hct (37-47) % MCV (80-100) fL MCH (25-34) pg MCHC (32-36) g/dL RDW Std Deviation (36.4-46.3) fL RDW Coeff of Bradley (11.5-14.5) % Plt Count (130-400) K/uL MPV (7.4-10.4) fL Immature Gran % (Auto) % Neut % (Auto) % Lymph % (Auto) % [place] % (Auto) % Eos % (Auto) % Baso % (Auto) % Immature Gran # (Auto) (0.00-0.02) K/uL Neut # (Auto) (1.4-6.5) K/uL Lymph # (Auto) (1.2-3.4) K/uL [place] # (Auto) (0.11-0.59) K/uL Eos # (Auto) (0-0.5) K/uL Baso # (Auto) (0-0.2) K/uL Absolute Nucleated RBC (0-0) K/uL Nucleated RBC % (auto) % Platelet Estimate (Normal) Tear Drop Cells Sodium (136-145) mmol/L Potassium (3.5-5.1) mmol/L Chloride (98-107) mmol/L Carbon Dioxide (21-32) mmol/L Anion Gap (3-11) BUN (7-18) mg/dl Creatinine (0.6-1.2) mg/dl Est Cr Clr Drug Dosing Est GFR ( Amer) Est GFR (Non-Af Amer) BUN/Creatinine Ratio (10-20) Glucose (70-99) mg/dl POC Glucose 318 H* 271 H (70-99) mg/dl Calcium (8.5-10.1) mg/dl Total Bilirubin (0.2-1) mg/dl AST (15-37) U/L ALT (12-78) U/L Alkaline Phosphatase (45-117) U/L Total Protein (6.4-8.2) gm/dl Albumin (3.4-5.0) gm/dl Globulin (2.5-4.0) gm/dl Albumin/Globulin Ratio (0.9-2) Lipase (73-393) U/L Beta-Hydroxybutyric Acd (0.2-2.81) mg/dl Urine Color Urine Appearance (Clear) Urine pH (4.5-7.5) Ur Specific [place] (1.000-1.030) Urine Protein (Negative) Urine Glucose (UA) (Negative) Urine Ketones (Negative) Urine Blood (Negative) Urine Nitrite (Negative) Urine Bilirubin (Negative) Urine Urobilinogen (Negative) Ur Leukocyte Esterase (Negative) Urine WBC (Auto) (0-5) /hpf Urine RBC (Auto) (0-4) /hpf U Hyaline Cast (Auto) (0-5) /lpf U Epithel Cells (Auto) (0-5) /lpf Urine Bacteria (Auto) (Negative) Administered Medications Ioversol (Optiray 320 100ml) 91 ml IV ONCE PRN PRN Reason: Interaction Checking Stop: 02/25/20 21:30 Last Admin: 02/21/20 21:32 Dose: 91 ml Documented by: [id number] Discontinued Medications Acetaminophen (Ofirmev) 1,000 mg IV NOW STA Stop: 02/21/20 19:11 Last Admin: 02/21/20 19:42 Dose: 1,000 mg Documented by: [id number] Sodium Chloride (Nss) 500 mls @ 999 mls/hr IV .Q31M KRISTY Stop: 02/21/20 19:45 Last Infusion: 02/21/20 20:28 Dose: 0 mls/hr Documented by: [id number] Admin: 02/21/20 19:42 Dose: 999 mls/hr Documented by: [id number] Sodium Chloride (Nss 1000ml) 500 mls @ 999 mls/hr IV .Q31M ONE Stop: 02/21/20 21:12 Last Infusion: 02/21/20 23:44 Dose: 0 mls/hr Documented by: [id number] Admin: 02/21/20 21:01 Dose: 999 mls/hr Documented by: [id number] Ceftriaxone Sodium (Rocephin) 2,000 mg in 70 mls @ 140 mls/hr IV NOW STA Stop: 02/21/20 21:27 Last Infusion: 02/21/20 23:44 Dose: 0 mls/hr Documented by: [id number] Admin: 02/21/20 23:12 Dose: 140 mls/hr Documented by: [id number] Insulin Human Regular (Novolin R U-100 Per Unit) 10 units IV NOW STA Stop: 02/21/20 20:43 Last Admin: 02/21/20 20:54 Dose: 10 units Documented by: [id number] Cosigned by: [id number] Insulin Human Regular (Novolin R U-100 Per Unit) 6 units IV NOW STA Stop: 02/21/20 22:13 Last Admin: 02/21/20 23:12 Dose: 6 units Documented by: [id number] Cosigned by: [id number] Ketorolac Tromethamine (Toradol) 15 mg IV NOW STA Stop: 02/21/20 19:11 Last Admin: 02/21/20 19:42 Dose: 15 mg Documented by: [id number] Ondansetron HCl (Zofran) 4 mg IV NOW STA Stop: 02/21/20 19:11 Last Admin: 02/21/20 19:42 Dose: 4 mg Documented by: [id number] Imaging Data Radiologist's Impression: XR chest 1V portable HISTORY: 64 years-old Female r chest pain acute right-sided chest pain COMPARISON: Chest radiograph 02/13/2020 TECHNIQUE: Portable AP view of the chest FINDINGS: The cardiac silhouette is enlarged, unchanged. No pneumothorax, pleural effusion, airspace consolidation or overt pulmonary edema. Degenerative changes of the shoulders and spine. Mild convex right curvature of the midthoracic spine. Bones appear grossly intact. IMPRESSION: Cardiomegaly without acute process. ABDOMEN AND PELVIS CT WITH IV CONTRAST CT DOSE: 1035.98 mGycm HISTORY: Acute right lower quadrant abdominal pain rlq pain TECHNIQUE: Multiaxial CT images of the abdomen and pelvis were performed following the IV administration of 91 cc of Optiray 320, A dose lowering technique was utilized adhering to the principles of ALARA. COMPARISON STUDY: CT abdomen and pelvis 09/09/2019. FINDINGS: Right greater than left bibasilar atelectasis. Mild right hemidiaphragmatic elevation. The study is motion degraded. No pneumatosis or pneumoperitoneum. Cardiomegaly. Coronary artery calcifications. Hepatosplenomegaly with cirrhosis. Upper abdominal collateral vessels. Patency of the hepatic and portal veins. Pancreas and adrenal glands are unremarkable. Unremarkable appearance of the left kidney. There are 2 nonobstructing calculi of the right kidney noted measuring up to 5 mm. Mild unchanged pelviectasis. No ureteral calculi or obstructive uropathy identified. Wall thickening of the bladder with partial distention. Anteflexed uterus. No adnexal mass lesions. No aortic aneurysm or adenopathy. Minimal nonspecific presacral edema. There is no bowel obstruction or bowel wall thickening. Colonic diverticulosis without acute diverticulitis. Mild fecal retention. Appendix appears noninflamed, image 293 of series 3. Mild nonspecific subcutaneous edema of the anterior abdominal wall. Hyperdense mildly enlarged right inguinal lymph nodes are unchanged. Partially calcified. Degenerative changes of the spine, pelvis and hips. IMPRESSION: 1. No acute intra-abdominal or intrapelvic abnormality. 2. Normal appendix. 3. Colonic diverticulosis without acute diverticulitis. 4. Cirrhosis. 5. Hepatosplenomegaly. 6. Nonobstructing right nephrolithiasis. Blood Pressure Blood Pressure Findings: Low blood pressure Blood Pressure Disposition: further management by hospitalist Discharge Plan Visit Data Chief Complaint: Abdominal Pain Stated Complaint: ABD PAIN RIGHT SIDE ED Provider: Selvin Parker Discharge Problem: Right sided abdominal pain, Acute pyelonephritis, Acute hyperglycemia, Ku cytopenia Patient Disposition: Being Evaluated by Hospitalist Condition: Good Forms Stand Alone Forms: [employer] Prescriptions Prescriptions: No Action tamsulosin [Flomax] 0.4 mg capsule 0.4 mg PO QAM Qty: 30 RF: 0 escitalopram oxalate [Lexapro] 20 mg tablet 20 mg PO DAILY RF: 0 fluticasone propionate [Flonase Allergy Relief] 50 mcg/actuation [place],Suspension 2 spray Intranasal QAM RF: 0 Centrum Silver 0.4-300-250 mg-mcg-mcg Tablet 1 tab PO QAM RF: 0 pantoprazole [Protonix] 20 mg tablet,delayed release (DR/EC) 40 mg PO QAM RF: 0 atorvastatin [Lipitor] 40 mg tablet 40 mg PO HS RF: 0 albuterol sulfate [Ventolin HFA] 90 mcg/actuation Hfa Aerosol Inhaler 2 puff INHALATION Q4H PRN (Reason: Cough or Wheezing) RF: 0 oxybutynin chloride 5 mg tablet 5 mg PO BID RF: 0 nadolol [Corgard] 20 mg tablet 40 mg PO DAILY RF: 0 gabapentin [Neurontin] 300 mg Capsule 600 mg PO HS RF: 0 gabapentin [Neurontin] 300 mg Capsule 300 mg PO DAILYBL RF: 0 cyclobenzaprine 10 mg Tablet 10 mg PO HS RF: 0 trazodone 50 mg Tablet 50 mg PO HS RF: 0 potassium chloride [K-Tab] 10 mEq Tablet Extended Release 10 meq PO QDL RF: 0 aspirin [Aspir-81] 81 mg Tablet,Delayed Release (Dr/Ec) 81 mg PO QAM RF: 0 ascorbic acid (vitamin C) [Vitamin C] 500 mg Tablet 500 mg PO QAM RF: 0 gabapentin [Neurontin] 300 mg Capsule 300 mg PO QAM RF: 0 furosemide [Lasix] 20 mg Tablet 20 mg PO QAM PRN (Reason: Edema) RF: 0 Lantus Solostar U-100 Insulin 100 unit/mL (3 mL) Insulin Pen 24 unit SUBCUT HS RF: 0 ferrous sulfate 325 mg (65 mg iron) Tablet 325 mg PO BID RF: 0 nystatin [Nyamyc] 100,000 unit/gram powder 1 applic TOPICAL TID RF: 0 albuterol sulfate 2.5 mg /3 mL (0.083 %) solution for nebulization 2.5 mg inhalation Q6H PRN (Reason: Wheezing) RF: 0 Ozempic 1 mg/dose (2 mg/1.5 mL) Pen Injector 1 mg SUBCUT MO RF: 0 metformin [Glucophage] 1,000 mg tablet 1,000 mg PO BID RF: 0 Trulicity 1.5 mg/0.5 mL pen injector 1.5 mg SUBCUT WK RF: 0 levothyroxine [Synthroid] 200 mcg tablet 200 mcg PO QAM RF: 0 Referrals Referrals: Rajwinder Carter DO [Primary Care Provider] -
[2020-02-21] MEDS ORDERED: SODIUM CHLORIDE 0.9% 500 ML IV SCH (19:15)
--- NOTE | 2020-02-21 19:35 | XRay Report ---
XR chest 1V portable HISTORY: 64 years-old Female r chest pain acute right-sided chest pain COMPARISON: Chest radiograph 02/13/2020 TECHNIQUE: Portable AP view of the chest FINDINGS: The cardiac silhouette is enlarged, unchanged. No pneumothorax, pleural effusion, airspace consolidat ion or overt pulmonary edema. Degenerative changes of the shoulders and spine. Mild convex right curv ature of the midthoracic spine. Bones appear grossly intact. IMPRESSION: Cardiomegaly without acute process. ACT 112: Negative or not required by law. The above report was generated using voice recognition software. It may contain grammatical, syntax o r spelling errors. Electronically signed by: Dewayne Torres M.D. 02/21/2020 7:34 PM
[2020-02-21 20:29] LABS: Basophils # (auto) 0.02 K/uL (0-0.2); Basophils % (auto) 0.6 %; Eosinophils # (auto) 0.17 K/uL (0-0.5); Eosinophils % (auto) 5.2 %; Hematocrit (blood only) 32.2 % (37-47); Hemoglobin 9.8 g/dL (12.0-16.0); Lymphocytes # (auto) 0.76 K/uL (1.2-3.4); Lymphocytes % (auto) 23.2 %; Mean Corpuscular Hemoglobin 32.9 pg (25-34); Mean Corpuscular Hgb Conc 30.4 g/dL (32-36); Mean Corpuscular Volume 108.1 fL (80-100); Mean Platelet Volume 13.4 fL (7.4-10.4); Monocytes # (auto) 0.28 K/uL (0.11-0.59); Monocytes % (auto) 8.6 %; Neutrophils # (auto) 2.04 K/uL (1.4-6.5); Neutrophils % (auto) 62.4 %; Nucleated RBC # (auto) 0.02 K/uL (0-0); Nucleated RBC % (auto) 0.7 %; Platelet Count 86 K/uL (130-400); Platelet Estimate Decreased (Normal); RDW Standard Deviation 75.2 fL (36.4-46.3); Red Blood Count 2.98 M/uL (4.2-5.4); Tear Drop Cells 1+; White Blood Count 3.27 K/uL (4.8-10.8)
[2020-02-21 20:39] LABS: Appearance Urine Cloudy (Clear); Bacteria Urine Automated 3+ (Negative); Bilirubin Urine Negative (Negative); Blood Urine 1+ (Negative); Color Urine Yellow; Glucose Urine UA 3+ (Negative); Ketones Urine Trace (Negative); Leukocyte Esterase Urine Trace (Negative); Nitrite Urine Positive (Negative); Protein Urine Negative (Negative); Urobilinogen Urine Negative (Negative); WBC Urine Automated >30 /hpf (0-5)
[2020-02-21 20:41] LABS: Alanine Aminotransferase 36 U/L (12-78); Albumin Globulin Ratio 0.8 (0.9-2); Albumin Level 3.1 gm/dl (3.4-5.0); Alkaline Phosphatase 150 U/L (45-117); Aspartate Aminotransferase 40 U/L (15-37); BUN Creatinine Ratio 11.2 (10-20); Bilirubin,Total 0.5 mg/dl (0.2-1); Blood Urea Nitrogen 10 mg/dl (7-18); Calcium 8.6 mg/dl (8.5-10.1); Carbon Dioxide 25 mmol/L (21-32); Chloride 107 mmol/L (98-107); Est GFR (African American) 79.4; Est GFR (Non-African American) 68.5; Globulin 3.9 gm/dl (2.5-4.0); Glucose 362 mg/dl (70-99); Lipase 62 U/L (73-393); Potassium 3.9 mmol/L (3.5-5.1); Sodium 140 mmol/L (136-145)
[2020-02-21] MEDS ORDERED: NovoLIN-R INSULIN PER UNIT CHARGE IV STA ×2 (20:42→22:12)
[2020-02-21] MEDS ORDERED: SODIUM CHLORIDE 0.9% 1000ML 500 ML IV ONE (20:42)
[2020-02-21] MEDS ORDERED: cefTRIAXone SODIUM 2,000 MG/70 ML BAG IV STA (20:58)
[2020-02-21] MEDS ORDERED: IOVERSOL 100ml IV PRN (21:31)
--- NOTE | 2020-02-21 22:03 | CT Scan Report ---
ABDOMEN AND PELVIS CT WITH IV CONTRAST CT DOSE: 1035.98 mGycm HISTORY: Acute right lower quadrant abdominal pain rlq pain TECHNIQUE: Multiaxial CT images of the abdomen and pelvis were performed following the IV administrat ion of 91 cc of Optiray 320, A dose lowering technique was utilized adhering to the principles of [place] PENNY. COMPARISON STUDY: CT abdomen and pelvis 09/09/2019. FINDINGS: Right greater than left bibasilar atelectasis. Mild right hemidiaphragmatic elevation. The study is m otion degraded. No pneumatosis or pneumoperitoneum. Cardiomegaly. Coronary artery calcifications. Hep atosplenomegaly with cirrhosis. Upper abdominal collateral vessels. Patency of the hepatic and portal veins. Pancreas and adrenal glands are unremarkable. Unremarkable appearance of the left kidney. The re are 2 nonobstructing calculi of the right kidney noted measuring up to 5 mm. Mild unchanged pelvie ctasis. No ureteral calculi or obstructive uropathy identified. Wall thickening of the bladder with p artial distention. Anteflexed uterus. No adnexal mass lesions. No aortic aneurysm or adenopathy. Mini mal nonspecific presacral edema. There is no bowel obstruction or bowel wall thickening. Colonic dive rticulosis without acute diverticulitis. Mild fecal retention. Appendix appears noninflamed, image 29 3 of series 3. Mild nonspecific subcutaneous edema of the anterior abdominal wall. Hyperdense mildly enlarged right inguinal lymph nodes are unchanged. Partially calcified. Degenerative changes of the s pine, pelvis and hips. IMPRESSION: 1. No acute intra-abdominal or intrapelvic abnormality. 2. Normal appendix. 3. Colonic diverticulosis without acute diverticulitis. 4. Cirrhosis. 5. Hepatosplenomegaly. 6. Nonobstructing right nephrolithiasis. ACT 112: Negative or not required by law. The above report was generated using voice recognition software. It may contain grammatical, syntax o r spelling errors. Electronically signed by: Dewayne Torres M.D. 02/21/2020 10:01 PM
--- NOTE | 2020-02-22 01:24 | History and Physical Report ---
DATE OF ADMISSION: 02/21/2020 CHIEF COMPLAINT: Right flank pain. HISTORY OF PRESENT ILLNESS: This is a 64-year-old female with past medical history significant for type 2 diabetes, hypertension, hyperlipidemia, obstructive sleep apnea on BiPAP, restrictive lung disease, cerebral palsy, wheelchair bound, NG cirrhosis, grade 1 esophageal varices, hypothyroidism, diabetic neuropathy, pancytopenia secondary to cirrhosis, iron deficiency anemia, receiving IV Venofer and also on iron tablet, history of C. diff, who presents with abdominal pain and found to have a UTI. The patient has history of recurrent UTIs. The patient lives with her and her [id number]. She states yesterday she had right flank pain and that is the reason she came to the ER and found to have UTI. The patient received IV Rocephin, fluids, Tylenol, and Toradol. Her pain is resolved. Currently resting comfortably and hemodynamically stable. The patient had some headache, but it is getting better. Had some blurred visions a couple of days ago, but that is better now. Currently, no earache, no runny nose, no sore throat. Once in a while, she has cough, which is chronic. Denies any chest pain, no shortness of breath. Was nauseous earlier. Abdominal pain improved now. No diarrhea or constipation. Her stools are black because of iron pills. She says she has no burning micturitions, no hematuria. Denies any fever, chills. Has chronic lower extremity edema. ALLERGIES: PENICILLIN. PAST MEDICAL HISTORY: As mentioned above. PAST SURGICAL HISTORY: , colonoscopy, dental surgery, dilatation and curettage, EGDs, pelvic hip joint surgery, repair of Achilles tendon. MEDICATIONS: The patient is on levothyroxine 200 mcg daily, Flexeril 10 mg p.o. at bedtime p.r.n., furosemide 20 mg p.o. daily p.r.n., metformin 1000 mg p.o. b.i.d., Lipitor 40 mg p.o. at bedtime, Trulicity 1.5 mg injection once weekly, Lexapro 20 mg p.o. daily, Lantus 24 units at bedtime, potassium chloride 20 mEq p.o. daily, aspirin 81 mg p.o. daily, trazodone 50 mg p.o. at bedtime, ferrous sulfate 325 mg p.o. b.i.d., gabapentin 300 mg 1 pill in a.m., 1 pill at midday, and 2 pills in p.m., nadolol 40 mg p.o. daily, Flomax 0.4 mg p.o. daily, albuterol 2 puffs every 4 hours p.r.n., nystatin apply topically t.i.d., albuterol nebulization every 6 hours p.r.n., oxybutynin 5 mg p.o. b.i.d., Protonix 40 mg p.o. daily, Flonase 2 sprays into each nostril daily as needed, Lasix 20 mg p.o. daily, vitamin C 500 mg p.o. daily, Centrum Silver 1 tablet p.o. daily. FAMILY HISTORY: Significant for father has diabetes and heart disorder; mother has heart disorder; sister has hypertension. SOCIAL HISTORY: , lives with her . No smoking, no alcohol, no drug use. REVIEW OF SYSTEMS: As per HPI. Rest of the review of systems negative. PHYSICAL EXAMINATION: GENERAL: The patient is morbidly obese, not in acute distress. VITAL SIGNS: Temperature 36.8, pulse 72, respiratory rate 18, blood pressure 112/68, oxygen 94% on room air. HEENT: No pallor, no icterus. Pupils equal, round, reactive to light. NECK: No JVD, no neck masses. CARDIOVASCULAR: S1, S2 heard, regular rate and rhythm, no murmur, no gallop. RESPIRATORY SYSTEM: Normal AP diameter. No accessory muscle use. No wheezing, no crackles. ABDOMEN: Soft, bowel sounds present, nontender. No distention. CENTRAL NERVOUS SYSTEM: Alert and oriented. Obeys simple commands. Can move upper extremities. EXTREMITIES: Chronic lower extremity edema present, no erythema seen. LABORATORY DATA: WBC 3.2, hemoglobin 9.8, platelets 86. Sodium 140, potassium 3.9, chloride 107, bicarbonate 25, BUN 10, creatinine 0.8, serum glucose 362, calcium 8.6, total bilirubin 0.5, AST 40, ALT 36, alkaline phosphatase 150, lipase 62. Urinalysis positive for urine nitrite and leukocyte esterase. IMAGING DATA: CT abdomen and pelvis with IV contrast, no acute intraabdominal or intrapelvic abnormality. Normal appendix, colonic diverticulosis without acute diverticulitis, cirrhosis, hepatosplenomegaly, nonobstructing right nephrolithiasis. ASSESSMENT AND PLAN: This is a 64-year-old female who presents with recurrent urinary tract infection. 1. Recurrent urinary tract infection. received Rocephin. Blood pressure was slightly borderline, but improved. On the CAT scan, she has 2 nonobstructing calculi of the right kidney measuring up to 5 mm. Maybe need to be followed with urology as outpatient for recurrent urinary tract infections. Continue the current antibiotics. 2. Diabetes. Continue home Lantus. We will place on insulin sliding scale. Hold home p.o. medications. 3. NG cirrhosis. Grade I esophageal varices and portal hypertension with gastropathy as per EGD in November 2019. On nadolol and Lasix as needed. 4. Pancytopenia secondary to cirrhosis. Follows with hematology, Dr. Sanchez. Gets iv iron . 6. Obstructive sleep apnea, on CPAP at bedtime. 7. Hyperlipidemia, on statin. 8. Hypothyroidism, on Synthroid. 9. Fibromyalgia, on gabapentin. 10. Asthma, continue home inhalers. 11. Cerebral palsy, wheelchair bound, supportive care. 12.. Obesity, needs counseling. 13. Deep venous thrombosis prophylaxis, sequential compression devices for now. DISPOSITION: Admit to medical floor. Expect to discharge home and follow with family doctor. Level 1 full code as per my discussion with the patient. MTDD
[2020-02-22] MEDS ORDERED: ALBUTEROL HFA 8 GM INHALER INH PRN (01:36)
[2020-02-22] MEDS ORDERED: FUROSEMIDE 20 MG TAB PO PRN (01:36)
[2020-02-22] MEDS ORDERED: ALBUTEROL 0.083% NEBU SOLN 3 ML VIAL INH PRN (01:36)
[2020-02-22] MEDS ORDERED: ONDANSETRON INJ 2 MG/ML 2 ML VIAL IV PRN (01:36)
[2020-02-22] MEDS ORDERED: GLUCAGON FOR INJ 1 MG VIAL SQ PRN (02:00)
[2020-02-22] MEDS ORDERED: CARBOHYDRATES FOR HYPOGLYCEMIA PO PRN (02:00)
[2020-02-22] MEDS ORDERED: GLUCOSE 10 TABS/TUBE PO PRN (02:00)
[2020-02-22] MEDS ORDERED: DEXTROSE 50% 50 ML SYRINGE IV PRN (02:00)
[2020-02-22] MEDS ORDERED: GLUCOSE 40% GEL 15 GM TUBE PO PRN (02:00)
[2020-02-22] MEDS: ACETAMINOPHEN 325 MG TAB PO PRN ×2 (02:02→15:55)
[2020-02-22] MEDS: LEVOTHYROXINE SODIUM 200 MCG TABLET PO SCH (05:39)
[2020-02-22 05:56] LABS: Mean Corpuscular Hgb Conc 30.4 g/dL (32-36); Nucleated RBC # (auto) 0.02 K/uL (0-0); Nucleated RBC % (auto) 1.1 %
[2020-02-22 06:05] LABS: Hematocrit (blood only) 30.3 % (37-47); Hemoglobin 9.2 g/dL (12.0-16.0); Mean Corpuscular Hemoglobin 32.5 pg (25-34); Mean Corpuscular Volume 107.1 fL (80-100); RDW Standard Deviation 74.1 fL (36.4-46.3); Red Blood Count 2.83 M/uL (4.2-5.4); White Blood Count 1.97 K/uL (4.8-10.8)
[2020-02-22 06:41] LABS: Eosinophils # (auto) 0.11 K/uL (0-0.5); Eosinophils % (auto) 5.6 %; Lymphocytes # (auto) 0.59 K/uL (1.2-3.4); Lymphocytes % (auto) 29.9 %; Monocytes # (auto) 0.13 K/uL (0.11-0.59); Monocytes % (auto) 6.6 %; Neutrophils # (auto) 1.14 K/uL (1.4-6.5); Neutrophils % (auto) 57.9 %; Platelet Count 66 K/uL (130-400); Platelet Estimate Decreased (Normal)
[2020-02-22 06:50] LABS: BUN Creatinine Ratio 15.5 (10-20); Calcium 8.2 mg/dl (8.5-10.1); Creatinine Clr Calc Pharmacy 95.5 ml/min; Est GFR (African American) 106.1; Est GFR (Non-African American) 91.6
[2020-02-22 07:17] LABS: Estimated Average Glucose 143 mg/dl; Hemoglobin A1C 6.6 % (4.5-5.6)
[2020-02-22 08:21] LABS: Potassium 4.1 mmol/L (3.5-5.1)
[2020-02-22 08:22] LABS: Magnesium 1.8 mg/dl (1.8-2.4)
[2020-02-22] MEDS: INSULIN ASPART 100 UNITS/ML 3 ML PEN SC SCH ×4 (08:57→21:29)
[2020-02-22] MEDS: nadoloL 40 MG TAB PO SCH ×2 (09:04→09:05)
[2020-02-22] MEDS: OXYBUTYNIN CHLORIDE 5 MG TAB PO SCH ×2 (09:06→21:30)
[2020-02-22] MEDS: ASPIRIN 81 MG ECTAB PO SCH (09:07)
[2020-02-22] MEDS: FERROUS SULFATE 325 MG TAB PO SCH ×2 (09:07→21:30)
[2020-02-22] MEDS: TAMSULOSIN HCL 0.4 MG CAP PO SCH (09:08)
[2020-02-22] MEDS: FLUTICASONE PROPIONATE NA SPR 16 GM BTL SCH (09:08)
[2020-02-22] MEDS: ESCITALOPRAM OXALATE 20 MG TAB PO SCH (09:09)
[2020-02-22] MEDS: CEROVITE ADV FORMULA TAB PO SCH (09:11)
[2020-02-22] MEDS: GABAPENTIN 300 MG CAP PO SCH (09:11)
[2020-02-22] MEDS: ASCORBIC ACID 500 MG TAB PO SCH (09:12)
[2020-02-22] MEDS: PANTOprazole 40 MG TAB PO SCH (09:12)
[2020-02-22] MEDS: POTASSIUM CHLORIDE 10 MEQ TABCR PO SCH (09:13)
[2020-02-22 10:25] LABS: Giant Platelets 1+
[2020-02-22] MEDS ORDERED: GABAPENTIN 300 MG CAP PO SCH ×2 (10:30→21:00)
[2020-02-22] MEDS: NYSTATIN POWDER 15GM BTL EXT SCH ×3 (12:42→21:15)
--- NOTE | 2020-02-22 13:08 | Hospitalist Progress Note ---
Date of Service February 22, 2020 Assessment & Plan (1) Right sided abdominal pain: possibly from urological etiology versus musculoskeletal pain vs from cirrhosis less likely (2) UTI (urinary tract infection): -as per admission physical notes in regards to 02/21/2020 ED presentation and then admission: "This is a 64-year-old female with past medical history significant for type 2 diabetes, hypertension, hyperlipidemia, obstructive sleep apnea on BiPAP, restrictive lung disease, cerebral palsy, wheelchair bound, NG cirrhosis, grade 1 esophageal varices, hypothyroidism, diabetic neuropathy, pancytopenia secondary to cirrhosis, iron deficiency anemia, receiving IV Venofer and also on iron tablet, history of C. diff, who presents with abdominal pain and found to have a UTI. The patient has history of recurrent UTIs. The patient lives with her and her [id number]. She states yesterday she had right flank pain and that is the reason she came to the ER and found to have UTI. The patient received IV Rocephin, fluids, Tylenol, and Toradol. -ceftriaxone is being continued as 2000 mg q24 hours. admission CT scan, she has 2 nonobstructing calculi of the right kidney measuring up to 5 mm. have requested [facility] urology consult but not clear at this time whether nonobstructing stones has any role in right sided pain. Patient is also obese and generally limited mobility and perhaps this could be contributory as non urological cause of pain -no acute abdomen or flank pain as of 02/22/2020 exam. last hospital documented record of bacteria in urine was in 01/15/2020 with Proteus mirabilis, a review of 02/18/2020 urine sample that was obtained via straight [facility] with no bacteria. 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 -on insulin sliding scale. -on gabapentin for neuropathic pain NG cirrhosis. -Grade I esophageal varices and portal hypertension with gastropathy as per EGD in November 2019. On nadolol and Lasix as needed. Pancytopenia secondary to cirrhosis -Follows with hematology, Dr. Sanchez, Gets IV iron as outpatient Obesity with BMI 54.1 Hyperlipidemia Obstructive sleep apnea with dependence on CPAP Cerebral palsy -on CPAP bedtime -uses wheel chair for mobility at home -on statin. Hypothyroidism -on Synthroid. Asthma -prn home inhalers Admission and Anticipated Discharge Date Admission Date: February 21, 2020 Subjective abdomen pain (anterior right side toward groin) from prior to admission not pre sent today. no chest pain. no shortness of breath. on room air. patient denies dsyuria Review of Systems Review of Systems: All systems reviewed & are unremarkable except as noted in Subjective Physical Exam Constitutional: + obese Eyes: PERRL, conjunctivae normal, anicteric sclerae EOM intact bilaterally ENMT: external ear and nose normal, oropharynx normal Neck: trachea midline, no thyromegaly normal visual inspection Respiratory: normal respiratory effort, lungs clear to auscultation Cardiovascular: Rate/Rhythm: regular rate Gastrointestinal (Abdomen): normal bowel sounds, soft, nontender, no hepatosplenomegaly Musculoskeletal: Head/Neck/Chest: normocephalic Neurologic: PERRL, EOMI, accommodation nl, no face palsy, no dysarthria Psychiatric: A+Ox3, euthymic affect Results & Data Results & Data ([facility]) Vital Signs (Past 12 Hours) Vital Signs Temp Pulse Pulse Resp BP BP Pulse Ox 02/22/20 07:14 36.3 C L 54 L 18 120/70 99 02/22/20 01:45 36.5 C 54 L 20 121/73 95 02/22/20 01:15 58 L 18 107/82 93
--- NOTE | 2020-02-22 14:54 | Urology Consultation ---
Date of Consultation February 22, 2020 Assessment & Plan (1) Right sided abdominal pain: possibly from urological etiology versus musculoskeletal pain vs from cirrhosis less likely (2) UTI (urinary tract infection): - The patient has history of recurrent UTIs and right flank/ab pain -ceftriaxone is being continued as 2000 mg q24 hours. admission CT scan, she has 2 nonobstructing calculi of the right kidney measuring up to 5 mm. The stones are non obstructing and their is no hydronephrosis - this is likely not the source of her pain. - 02/21/2020 urine with gram negative bacilli for now, give IV ceftriaxone - given her history of CP she may not empty well and could have an element of neurogenic bladder contributing to the infections. Bladder scan to document complete emptying History of Present Illness Reason for Consultation: UTIs Attending Physician: Edgar Rose MD History of Present Illness 64 y/o female w hx of DM II, CP, HTN, dyslipidemia, THAD, chronic anemia, NG cirrhosis w Grade I esophageal varices and portal HTN admitted w/ urinary symptoms, possible concern for urinary sepsis given slight hypotension - GI asked to evaluate for dark stools. Pt was seen and evaluated, chart reviewed. Pt notes today she is feeling well. No longer having any urinary symptoms. Denies abd pain. No nausea, vomiting. Patient reports right sided abominal pain at admission. + blood in her stools. She denies urgency and frequency. + history of UTIs in the past. She follows with Dr. Escobar in Urology. She feels as though she empties her bladder. She denies fevers, chills, n/v CT scan performed in the ER shows two nonobstructing 5mm stones in the right kidney. No hydronephrosis. No urologic cause of pain on the CT. Allergies Allergy/AdvReac Type Severity Reaction Status Date / Time Penicillins Allergy Intermediate Rash Verified 02/21/20 20:53 Home Medications Home Medications Medication Instructions Recorded Confirmed Type Lantus Solostar U-100 Insulin 24 unit SUBCUT HS 06/16/18 02/21/20 History ascorbic acid (vitamin C) [Vitamin 500 mg PO QAM 06/16/18 02/21/20 History C] aspirin [Aspir-81] 81 mg PO QAM 06/16/18 02/21/20 History cyclobenzaprine 10 mg PO HS 06/16/18 02/21/20 History furosemide [Lasix] 20 mg PO QAM PRN 06/16/18 02/21/20 History gabapentin [Neurontin] 300 mg PO QAM 06/16/18 02/21/20 History potassium chloride [K-Tab] 10 meq PO QDL 06/16/18 02/21/20 History trazodone 50 mg PO HS 06/16/18 02/21/20 History Centrum Silver 1 tab PO QAM 07/19/18 02/21/20 History escitalopram oxalate [Lexapro] 20 mg PO DAILY 07/19/18 02/21/20 History fluticasone propionate [Flonase 2 spray INTRANASAL QAM 07/19/18 02/21/20 History Allergy Relief] ferrous sulfate 325 mg PO BID 02/21/19 02/21/20 History tamsulosin 0.4 mg capsule 0.4 mg PO QAM #30 cap 06/26/19 02/21/20 History albuterol sulfate [Ventolin HFA] 2 puff INHALATION Q4H PRN 09/09/19 02/21/20 History atorvastatin [Lipitor] 40 mg PO HS 09/09/19 02/21/20 History nadolol [Corgard] 40 mg PO DAILY 09/09/19 02/21/20 History oxybutynin chloride 5 mg PO BID 09/09/19 02/21/20 History pantoprazole [Protonix] 40 mg PO QAM 09/09/19 02/21/20 History nystatin [Nyamyc] 1 applic TOPICAL TID 11/20/19 02/21/20 History Ozempic 1 mg SUBCUT MO 11/28/19 02/21/20 History albuterol sulfate 2.5 mg INHALATION Q6H PRN 11/28/19 02/21/20 History gabapentin [Neurontin] 300 mg PO DAILYBL 01/15/20 02/21/20 History gabapentin [Neurontin] 600 mg PO HS 01/15/20 02/21/20 History Trulicity 1.5 mg SUBCUT WK 02/04/20 02/21/20 History levothyroxine [Synthroid] 200 mcg PO QAM 02/04/20 02/21/20 History metformin [Glucophage] 1,000 mg PO BID 05/26/20 06/12/20 History Patient History Medical History Acute cystitis (Acute) Ambulatory dysfunction Ambulatory dysfunction (Acute) Anxiety Asthma (Chronic) DOES NOT USE INH. REPORTS USING NEB TREATMENTS BID. Bilateral lower extremity edema (Chronic) Cardiac murmur Cerebral palsy (Chronic) Chest pain (Acute) Chronic back pain Chronic pain (Chronic) Complicated UTI (urinary tract infection) Contusion of knee, right (Acute) Contusion of leg (Acute) Cough CHRONIC PER PT REPORT Dark stools Depression DM type 2 (diabetes mellitus, type 2) (Chronic) IDDM Dyslipidemia (Chronic) Encounter for pre-operative examination Fall (Acute) Fibromyalgia (Chronic) VIDA (generalized anxiety disorder) (Chronic) GERD (gastroesophageal reflux disease) History of kidney stones History of migraine (Chronic) Hoarseness of voice CHRONIC PER PT REPORT Hypertension Hypothyroidism (Chronic) Major depressive disorder, recurrent, moderate (Chronic) NG (nonalcoholic steatohepatitis) (Chronic) Obesity (BMI 30-39.9) Obesity, morbid (more than 100 lbs over ideal weight or BMI > 40) (Chronic) Obstructive sleep apnea (Chronic) CPAP + OXYGEN AT 2 LPM @ NIGHT On home oxygen therapy 2 LPM @ NIGHT + CPAP Osteoarthritis (Chronic) Pancreatic cyst Pleurisy (Acute) Poor historian Right ankle sprain (Acute) Right knee sprain (Acute) SOB (shortness of breath) on exertion Urinary catheter dysfunction (Acute) Venous insufficiency (Chronic) VRE (vancomycin resistant enterococcus) culture positive (Acute) Surgical History H/O Achilles tendon repair (Chronic) H/O section (Chronic) H/O wisdom tooth extraction (Chronic) History of Achilles tendon repair History of section History of colonoscopy History of D&C (Chronic) History of dilatation and curettage History of esophagogastroduodenoscopy (EGD) History of tooth extraction Family History Father Family history of diabetes mellitus Myocardial infarction, Onset Age: 61 Mother Myocardial infarction, Onset Age: 72 Sister Myocardial infarction Social History Preferred Language: Tunisian Communication Ability: Effective 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 Beliefs That Will Affect Care: None marital status: Current Living Situation: Spouse and Family Current Living Situation Comment: Lives with , Sister and grandson Other Information That Helps Us Care for You: No Feels Safe at Home: Yes Safety Concerns: Feels Safe At This Time Smoking Status: Never smoker Second Hand Exposure: No ; Hx Alcohol Use: No Hx Substance Use: No Review of Systems Review of Systems: All systems reviewed & are unremarkable except as noted in HPI & below Results & Data Vital Signs (Past 12 Hours) Vital Signs Temp Pulse Resp BP Pulse Ox 02/22/20 07:14 36.3 C L 54 L 18 120/70 99 PG Care Time/CCT Total # of Minutes Spent Total Time Spent with Patient: Total time spent is greater than 50% in coordination of care (as documented) at patient's floor/unit and/or counseling patient: [place] [address] Initial Inpt Care Lvl 2 Patient Type New Medical Decision Making Moderate Complexity Diagnoses Right sided abdominal pain R10.9 UTI (urinary tract infection) N39.0 Time Spent (min) 20
[2020-02-22] MEDS ORDERED: Nursing to Pharmacy Communication SCH (18:00)
[2020-02-22] MEDS ORDERED: TRAZODONE HCL 50 MG TAB PO SCH (21:00)
[2020-02-22] MEDS ORDERED: ATORVASTATIN 40 MG TAB PO SCH (21:00)
[2020-02-22] MEDS ORDERED: CYCLOBENZAPRINE HCL 10 MG TAB PO SCH (21:00)
[2020-02-22] MEDS ORDERED: INSULIN GLARGINE SOLOSTAR 100 UNITS/ML 3 ML PEN SQ SCH (21:00)
[2020-02-22] MEDS ORDERED: cefTRIAXone SODIUM 2,000 MG in DEXTROSE 5% 50 ML IV SCH (22:00)
[2020-02-23] MEDS: LEVOTHYROXINE SODIUM 200 MCG TABLET PO SCH (06:17)
[2020-02-23] MEDS: INSULIN ASPART 100 UNITS/ML 3 ML PEN SC SCH ×2 (08:53→13:02)
[2020-02-23] MEDS: nadoloL 40 MG TAB PO SCH (08:54)
[2020-02-23] MEDS: GABAPENTIN 300 MG CAP PO SCH (08:54)
[2020-02-23] MEDS: FERROUS SULFATE 325 MG TAB PO SCH (08:54)
[2020-02-23] MEDS: ASCORBIC ACID 500 MG TAB PO SCH (08:55)
[2020-02-23] MEDS: CEROVITE ADV FORMULA TAB PO SCH (08:55)
[2020-02-23] MEDS: OXYBUTYNIN CHLORIDE 5 MG TAB PO SCH (08:55)
[2020-02-23] MEDS: PANTOprazole 40 MG TAB PO SCH (08:56)
[2020-02-23] MEDS: TAMSULOSIN HCL 0.4 MG CAP PO SCH (08:56)
[2020-02-23] MEDS: FLUTICASONE PROPIONATE NA SPR 16 GM BTL SCH (08:56)
[2020-02-23] MEDS: ASPIRIN 81 MG ECTAB PO SCH (08:56)
[2020-02-23] MEDS: NYSTATIN POWDER 15GM BTL EXT SCH ×2 (08:58→14:14)
[2020-02-23] MEDS: ESCITALOPRAM OXALATE 20 MG TAB PO SCH (09:13)
[2020-02-23] MEDS ORDERED: INSULIN GLARGINE SOLOSTAR 100 UNITS/ML 3 ML PEN SC ONE (10:35)
[2020-02-23] MEDS ORDERED: cefTRIAXone SODIUM 2,000 MG in DEXTROSE 5% 50 ML IV ONE (10:45)
--- NOTE | 2020-02-23 10:57 | Hospitalist Progress Note ---
Date of Service February 23, 2020 Assessment & Plan (1) Right sided abdominal pain: possibly from urological etiology versus musculoskeletal pain vs from cirrhosis less likely (2) UTI (urinary tract infection): -as per admission physical notes in regards to 02/21/2020 ED presentation and then admission: "This is a 64-year-old female with past medical history significant for type 2 diabetes, hypertension, hyperlipidemia, obstructive sleep apnea on BiPAP, restrictive lung disease, cerebral palsy, wheelchair bound, NG cirrhosis, grade 1 esophageal varices, hypothyroidism, diabetic neuropathy, pancytopenia secondary to cirrhosis, iron deficiency anemia, receiving IV Venofer and also on iron tablet, history of C. diff, who presents with abdominal pain and found to have a UTI. The patient has history of recurrent UTIs. The patient lives with her and her [id number]. She states yesterday she had right flank pain and that is the reason she came to the ER and found to have UTI. The patient received IV Rocephin, fluids, Tylenol, and Toradol. admission CT scan, she has 2 nonobstructing calculi of the right kidney measuring up to 5 mm. the stones are non obstructing and their is no hydronephrosis and this is likely not the source of her pain as per [facility] urology consult -no acute abdomen or flank pain as of 02/22/2020 exam. last hospital documented record of bacteria in urine was in 01/15/2020 with Proteus mirabilis, a review of 02/18/2020 urine sample that was obtained via straight cath by [facility] with no bacteria. However the 02/21/2020 urine with gram negative bacilli for now that then returns on 02/23/2020 as Citrobacter braakii (resistant to ertapenem, imipenem, nitrofurantoin, zosyn) when patient admitted on 02/21/2020 she was given ceftriaxone daily and so last dose of ceftriaxone to be given on 02/23/2020 before leaving the hospital discharge medications of antibiotic for urinary coverage as Cefdinir 300 mg every 12 hours for 5 more days starting on 02/24/2020 electronically sent to [facility] [address] [place] [address] Patient was given 6 units of Lantus on 02/23/2020 on discharge day and should take the 24 units of Lantus tonight when she goes home. Then started the Lantus insulin as 30 units units every night. new insulin dosing is electronically sent to [facility] [address] [facility], [place] [address] which should be started on 02/24/2020 discharge to home under care of her Patient should make post hospital discharge followup with primary care doctor or [facility] (3) DMII (diabetes mellitus, type 2): Type 2 Diabetes Mellitus with [facility] current use of insulin -on gabapentin for neuropathic pain -home insulin of Lantus 24 units qhs titrated up on this hospital stay to be 30 units qhs on discharge as documented above the discharge instructions NG cirrhosis. -Grade I esophageal varices and portal hypertension with gastropathy as per EGD in November 2019. On nadolol and Lasix as needed. Pancytopenia secondary to cirrhosis -Follows with hematology, Dr. Sanchez, Gets IV iron as outpatient Obesity with BMI 54.1 Hyperlipidemia Obstructive sleep apnea with dependence on CPAP Cerebral palsy -on CPAP bedtime -uses wheel chair for mobility at home -on statin. Hypothyroidism -on Synthroid. Asthma -prn home inhalers Admission and Anticipated Discharge Date Admission Date: February 21, 2020 Subjective Patient does not have acute pain. made good urine output, no nausea. no vomiting. no fevers. no dizziness. no headache. discharge plans discussed with her and her on the phone Review of Systems Review of Systems: All systems reviewed & are unremarkable except as noted in Subjective Physical Exam Constitutional: + obese Eyes: PERRL, conjunctivae normal, anicteric sclerae EOM intact bilaterally ENMT: external ear and nose normal, oropharynx normal Neck: trachea midline, no thyromegaly normal visual inspection Respiratory: normal respiratory effort, lungs clear to auscultation Cardiovascular: Rate/Rhythm: regular rate Gastrointestinal (Abdomen): normal bowel sounds, soft, nontender, no hepatosplenomegaly Musculoskeletal: Head/Neck/Chest: normocephalic Neurologic: PERRL, EOMI, accommodation nl, no face palsy, no dysarthria Psychiatric: A+Ox3, euthymic affect Results & Data Results & Data ([facility]) Vital Signs (Past 12 Hours) Vital Signs Temp Pulse Pulse Resp BP Pulse Ox 02/23/20 07:18 36.5 C 63 18 111/69 94 02/23/20 03:40 56 L 16 93 02/22/20 23:34 36.7 C 64 14 123/73 93
--- NOTE | 2020-02-23 10:58 | Discharge Summary ---
Date of Service February 23, 2020 Admission HPI Per Admitting Provider CHIEF COMPLAINT: Right flank pain. HISTORY OF PRESENT ILLNESS: This is a 64-year-old female with past medical history significant for type 2 diabetes, hypertension, hyperlipidemia, obstructive sleep apnea on BiPAP, restrictive lung disease, cerebral palsy, wheelchair bound, NG cirrhosis, grade 1 esophageal varices, hypothyroidism, diabetic neuropathy, pancytopenia secondary to cirrhosis, iron deficiency anemia, receiving IV Venofer and also on iron tablet, history of C. diff, who presents with abdominal pain and found to have a UTI. The patient has history of recurrent UTIs. The patient lives with her and her [id number]. She states yesterday she had right flank pain and that is the reason she came to the ER and found to have UTI. The patient received IV Rocephin, fluids, Tylenol, and Toradol. Her pain is resolved. Currently resting comfortably and hemodynamically stable. The patient had some headache, but it is getting better. Had some blurred visions a couple of days ago, but that is better now. Currently, no earache, no runny nose, no sore throat. Once in a while, she has cough, which is chronic. Denies any chest pain, no shortness of breath. Was nauseous earlier. Abdominal pain improved now. No diarrhea or constipation. Her stools are black because of iron pills. She says she has no burning micturitions, no hematuria. Denies any fever, chills. Has chronic lower extremity edema. Principal Diagnosis Right sided abdominal pain urinary tract infection Type 2 Diabetes Mellitus with skilled nursing current use of insulin NG cirrhosis, Pancytopenia secondary to cirrhosis Obesity with BMI 54.1 Hyperlipidemia Obstructive sleep apnea with dependence on BIPAP Cerebral palsy Discharge Exam Constitutional + obese Eyes PERRL, conjunctivae normal, anicteric sclerae EOM intact bilaterally ENMT external ear and nose normal, oropharynx normal Neck trachea midline, no thyromegaly normal visual inspection Respiratory normal respiratory effort, lungs clear to auscultation Cardiovascular Rate/Rhythm: regular rate Gastrointestinal (Abdomen) normal bowel sounds, soft, nontender, no hepatosplenomegaly Musculoskeletal Head/Neck/Chest: normocephalic Neurologic PERRL, EOMI, accommodation nl, no face palsy, no dysarthria Psychiatric A+Ox3, euthymic affect Discharge Data Allergies Allergy/AdvReac Type Severity Reaction Status Date / Time Penicillins Allergy Intermediate Rash Verified 02/21/20 20:53 Consultations 02/21/20 22:40 ED Decision to Admit Stat 02/22/20 01:36 Consult Case Management - Discharge Planning Routine 02/22/20 06:58 Consult Urology Routine Ordered Studies 02/21/20 19:10 CT abd pelvis IV con only Stat Hospital Course (1) Right sided abdominal pain: possibly from urological etiology versus musculoskeletal pain vs from cirrhosis less likely (2) UTI (urinary tract infection): -as per admission physical notes in regards to 02/21/2020 ED presentation and then admission: "This is a 64-year-old female with past medical history significant for type 2 diabetes, hypertension, hyperlipidemia, obstructive sleep apnea on BiPAP, restrictive lung disease, cerebral palsy, wheelchair bound, NG cirrhosis, grade 1 esophageal varices, hypothyroidism, diabetic neuropathy, pancytopenia secondary to cirrhosis, iron deficiency anemia, receiving IV Ve nofer and also on iron tablet, history of C. diff, who presents with abdominal pain and found to have a UTI. The patient has history of recurrent UTIs. The patient lives with her and her [id number]. She states yesterday she had right flank pain and that is the reason she came to the ER and found to have UTI. The patient received IV Rocephin, fluids, Tylenol, and Toradol. admission CT scan, she has 2 nonobstructing calculi of the right kidney measuring up to 5 mm. the stones are non obstructing and their is no hydronephrosis and this is likely not the source of her pain as per [facility] consult -no acute abdomen or flank pain as of 02/22/2020 exam. last hospital documented record of bacteria in urine was in 01/15/2020 with Proteus mirabilis, a review of 02/18/2020 urine sample that was obtained via straight cath by [facility] with no bacteria. However the 02/21/2020 urine with gram negative bacilli for now that then returns on 02/23/2020 as Citrobacter braakii (resistant to ertapenem, imipenem, nitrofurantoin, zosyn) when patient admitted on 02/21/2020 she was given ceftriaxone daily and so last dose of ceftriaxone to be given on 02/23/2020 before leaving the hospital discharge medications of antibiotic for urinary coverage as Cefdinir 300 mg every 12 hours for 5 more days starting on 02/24/2020 [place] [address] Patient was given 6 units of Lantus on 02/23/2020 on discharge day and should take the 24 units of Lantus tonight when she goes home. Then started the Lantus insulin as 30 units units every night. new insulin dosing [facility] [place] [address] which should be started on 02/24/2020 discharge to home under care of her Patient should make post hospital discharge followup with primary care doctor or [facility] urology (3) DMII (diabetes mellitus, type 2): Type 2 Diabetes Mellitus with skilled nursing current use of insulin -on gabapentin for neuropathic pain -home insulin of Lantus 24 units qhs titrated up on this hospital stay to be 30 units qhs on discharge as documented above the discharge instructions NG cirrhosis. -Grade I esophageal varices and portal hypertension with gastropathy as per EGD in November 2019. On nadolol and Lasix as needed. Pancytopenia secondary to cirrhosis -Follows with hematology, Dr. Sanchez, Gets IV iron as outpatient Obesity with BMI 54.1 Hyperlipidemia Obstructive sleep apnea with dependence on CPAP Cerebral palsy -on CPAP bedtime -uses wheel chair for mobility at home -on statin. Hypothyroidism -on Synthroid. 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 the stones are non obstructing and their is no hydronephrosis and this is likely not the source of her pain as per [facility] urology consult urine culture from 02/21/2020 admission day returns on 02/23/2020 as Citrobacter braakii (resistant to ertapenem, imipenem, nitrofurantoin, zosyn) when patient admitted on 02/21/2020 she was given ceftriaxone daily. last dose of ceftriaxone to be given on 02/23/2020 before leaving the hospital discharge medications of antibiotic for urinary coverage as Cefdinir 300 mg every 12 hours for 5 more days starting on 02/24/2020 electronically [place] [address] Patient was given 6 units of Lantus on 02/23/2020 on discharge day and should rosendo e the 24 units of Lantus tonight when she goes home. Then started the Lantus insulin as 30 units units every night. new insulin dosing [place] [address] which should be started on 02/24/2020 discharge to home under care of her Patient should make post hospital discharge followup with primary care doctor or [facility] urology Pending Studies at Discharge: No Stand-Alone Forms: My [facility], Smoking Cessation Medications and DC Order Prescriptions: New Lantus Solostar U-100 Insulin 100 unit/mL (3 mL) Insulin Pen 30 unit subcut HS 30 Days Qty: 9 RF: 0 cefdinir 300 mg capsule 300 mg PO BID 5 Days Qty: 10 RF: 0 Continued tamsulosin [Flomax] 0.4 mg capsule 0.4 mg PO QAM Qty: 30 RF: 0 escitalopram oxalate [Lexapro] 20 mg tablet 20 mg PO DAILY RF: 0 fluticasone propionate [Flonase Allergy Relief] 50 mcg/actuation [place],Suspension 2 spray Intranasal QAM RF: 0 Centrum Silver 0.4-300-250 mg-mcg-mcg Tablet 1 tab PO QAM RF: 0 pantoprazole [Protonix] 20 mg tablet,delayed release (DR/EC) 40 mg PO QAM RF: 0 atorvastatin [Lipitor] 40 mg tablet 40 mg PO HS RF: 0 albuterol sulfate [Ventolin HFA] 90 mcg/actuation Hfa Aerosol Inhaler 2 puff INHALATION Q4H PRN (Reason: Cough or Wheezing) RF: 0 oxybutynin chloride 5 mg tablet 5 mg PO BID RF: 0 nadolol [Corgard] 20 mg tablet 40 mg PO DAILY RF: 0 gabapentin [Neurontin] 300 mg Capsule 600 mg PO HS RF: 0 gabapentin [Neurontin] 300 mg Capsule 300 mg PO DAILYBL RF: 0 cyclobenzaprine 10 mg Tablet 10 mg PO HS RF: 0 trazodone 50 mg Tablet 50 mg PO HS RF: 0 potassium chloride [K-Tab] 10 mEq Tablet Extended Release 10 meq PO QDL RF: 0 aspirin [Aspir-81] 81 mg Tablet,Delayed Release (Dr/Ec) 81 mg PO QAM RF: 0 ascorbic acid (vitamin C) [Vitamin C] 500 mg Tablet 500 mg PO QAM RF: 0 gabapentin [Neurontin] 300 mg Capsule 300 mg PO QAM RF: 0 furosemide [Lasix] 20 mg Tablet 20 mg PO QAM PRN (Reason: Edema) RF: 0 Lantus Solostar U-100 Insulin 100 unit/mL (3 mL) Insulin Pen 24 unit SUBCUT HS RF: 0 ferrous sulfate 325 mg (65 mg iron) Tablet 325 mg PO BID RF: 0 nystatin [Nyamyc] 100,000 unit/gram powder 1 applic TOPICAL TID RF: 0 albuterol sulfate 2.5 mg /3 mL (0.083 %) solution for nebulization 2.5 mg inhalation Q6H PRN (Reason: Wheezing) RF: 0 Ozempic 1 mg/dose (2 mg/1.5 mL) Pen Injector 1 mg SUBCUT MO RF: 0 metformin [Glucophage] 1,000 mg tablet 1,000 mg PO BID RF: 0 Trulicity 1.5 mg/0.5 mL pen injector 1.5 mg SUBCUT WK RF: 0 levothyroxine [Synthroid] 200 mcg tablet 200 mcg PO QAM RF: 0 Discharge Orders: Discharge Order (Routine); Ordered 02/23/20 Ordered By: Edgar Rose Admission Data Admit Date/Time: 02/21/20 23:51 Attending Provider: Edgar Rose Admit Provider: Alexis Guardado Primary Care Provider: Rajwinder Carter Other Providers: Alexis Guardado ; Janice Frias
[2020-02-23] MEDS: POTASSIUM CHLORIDE 10 MEQ TABCR PO SCH (11:02)
[2020-02-23] MEDS ORDERED: INSULIN ASPART 100 UNITS/ML 3 ML PEN SC STA (12:47)
[2020-02-23] MEDS ORDERED: SODIUM CHLORIDE 0.9% 1000ML 250 ML IV ONE (12:50)
[2020-02-23] MEDS ORDERED: GABAPENTIN 300 MG CAP PO SCH (13:00)
[2020-02-23] MEDS ORDERED: SODIUM CHLORIDE 0.9% 1000ML 1,000 ML IV SCH (14:15)
[2020-02-23] MEDS ORDERED: INSULIN ASPART 100 UNITS/ML 3 ML PEN SC ONE (15:15)
== END 2020-02-23 16:38 | disposition home or self-care (01) ==
LOC: ED 18:02 → INTOOBSV 23:51 → 3E 23:51

== ENCOUNTER 2021-06-30 12:32 | Observation (INO) ==
[2021-06-30] MEDS ORDERED: SODIUM CHLORIDE 0.9% 500 ML IV STA (16:28)
--- NOTE | 2021-06-30 16:35 | Emergency Department Note ---
Impression & Plan Back pain, Acute UTI ED Provider Note Provider: Surya Villarreal MD DATE OF SERVICE: 06/30/2021 CHIEF COMPLAINT: Weakness, back pain HISTORY OF PRESENT ILLNESS: Patient is a 66-year-old female history of UTIs, diabetes, pancytopenia, fibromyalgia, and hypothyroidism presenting here today referred from her primary doctor's office this morning. Was seen in the outpatient clinic in [place] by Chance and referred here she looked pale and still been having some back pain. Denies any trauma. Patient states not been improving while on antibiotics and Diflucan for possible kidney infection. Patient was seen here twice before this week and urine culture was growing yeast and has been started on Diflucan. Has only been approximately 3 days into course of treatment patient denies fever and states some intermittent back pain not present at the current time. Chronic leg swelling and cough is present but no change in these reported by the patient. Denies significant nausea. Gene ralized weakness and fatigue reported. States she is having difficulty transferring now with her wheelchair. REVIEW OF SYSTEMS: A total of 10 review of systems was obtained and negative except as stated above in the HPI. PAST MEDICAL HISTORY: As noted above MEDICATIONS: Reviewed home medication list SOCIAL HISTORY: Lives at home and wheelchair-bound PHYSICAL EXAM: GENERAL: alert and oriented in no acute distress on stretcher fatigued in appearance Head: normocephalic and atraumatic EYES: No injection, discharge or icterus. NECK: Trachea midline. Supple. ENT: Mucous membranes pink and moist. LUNGS: Airway patent. No retractions. Breath sounds clear anteriorly with occasional cough HEART: Regular rate and rhythm. No chest wall tenderness ABDOMEN: Soft and non-tender, without guarding or rebound. Back: Some slight right flank tenderness. SKIN: Acyanotic, warm, dry, without rashes EXTREMITIES: Bilateral 2+ lower extremity edema without significant tenderness. NEUROLOGICAL: No focal deficits moving all extremities. No aphasia. No facial droop or slurred speech. EK bpm appears to be sinus rhythm without PVC. No acute ST segment elevation or depression. QTC 466. CONTINUOUS CARDIAC MONITORING: was ordered and showed a heart rate of 50-70s bpm in normal sinus rhythm to sinus bradycardia Patient's laboratory studies and imaging reviewed. Differential includes Infection, dehydration, metabolic abnormality, hypo/hyperglycemia, electrolyte disturbance, anemia, hypoxia, cardiac sources, intracerebral event, toxicologic, neurologic, as well as other pathologies. IMPRESSION/MEDICAL DECISION MAKING: Reviewed recent medical encounters including culture results. Recent CT given some continued symptoms we will repeat CT today. Basic labs were ordered. Patient is been on Diflucan for several days for the recent urine cultures. Discussed with pharmacy changes and the patient may need caspofungin but will defer she does not appear grossly septic at this point until further testing here today. Also does not appear septic although question if her symptoms are related to the yeast growing in her urine she does have a complex past history. CT scan report per radiology without evidence of ureteral calculi or hydronephrosis. No comment of continued swelling is present on CT from several days ago. Patient does appear to have some worsened leukopenia and now with decreasing neutrophil counts have concerns that any minimal infection could blossom. Will defer any further antifungal coverage to the inpatient hospitalist team but was given an additional dose of Rocephin here for antibacterial coverage (would be due based on the twice daily cefdinir dosing). Blood cultures were obtained including 1 from the port and peripherally as she is at high risk for systemic infection with the indwelling port. Lower suspicion at this time for acute spinal infection or cauda equina based on the given history not having acute numbness or urinary retention symptoms/saddle anesthesia. Given some Toradol here for pain. Patient complains of some continued back pain however and with continued difficulty transferring she wishes further care here at the hospital which I believe is reasonable. The hospitalist was contacted for further care at the hospital DIAGNOSIS: Back pain, UTI DISPOSITION: Hospitalist will evaluate Patient was agreeable with this plan. Past Med/Surg History Medical History (Updated 06/30/21 @ 20:05 by Surya Villarreal M.D.) Ambulatory dysfunction Asthma DOES NOT USE INH. REPORTS USING NEB TREATMENTS BID. Bilateral lower extremity edema Cardiac murmur does not follow w/ cardio; echo 11/2017 [place] Cerebral palsy Chronic back pain Chronic pain Dark stools Diplopia reports intermittent x 1-2 weeks. pt reports PCP aware and scheduled for brain MRI 03/11 at [place]. 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 History of hip surgery History of strabismus surgery History of tooth extraction Family History Father Family history of diabetes mellitus Myocardial infarction, Onset Age: 61 Mother Myocardial infarction, Onset Age: 72 Sister Myocardial infarction Social History Smoking Status: Never smoker Second Hand Exposure: Yes; Hx Alcohol Use: No Hx Substance Use: No Preferred Language: Turkmen Communication Ability: Effective Heel Lift Gouger Required: No Beliefs That Will Affect Care: None marital status: Current Living Situation: Spouse and Family Current Living Situation Comment: Lives with , Sister and grandson Feels Safe at Home: Yes Assistive Devices: CPAP, Glasses, Nebulizer, Oxygen - at Night and Wheelchair Allergies Allergies Allergy/AdvReac Type Severity Reaction Status Date / Time Penicillins Allergy Intermediate Rash Verified 06/30/21 16:02 adhesive tape Allergy Mild ITCHING Verified 06/30/21 16:02 perflutren AdvReac Intermediate LOWER BACK Verified 06/30/21 16:02 PAIN Home Meds Home Medications Medication Instructions Recorded Confirmed ascorbic acid (vitamin C) 500 mg 500 mg PO QAM 06/16/18 06/30/21 tablet (Vitamin C) furosemide 20 mg tablet (Lasix) 20 mg PO QAM PRN 06/16/18 06/30/21 insulin glargine 100 unit/mL (3 32 unit SUBCUT HS 06/16/18 06/30/21 mL) subcutaneous pen (Lantus Solostar U-100 Insulin) potassium chloride 10 mEq 10 meq PO QDL 06/16/18 06/30/21 tablet,extended release (K-Tab) trazodone 50 mg tablet 50 mg PO HS 06/16/18 06/30/21 escitalopram oxalate 20 mg tablet 20 mg PO DAILY 07/19/18 06/30/21 (Lexapro) fluticasone propionate 50 2 spray INTRANASAL QAM 07/19/18 06/30/21 mcg/actuation nasal spray,suspension (Flonase Allergy Relief) [id number] acid 0.4 1 tab PO QAM 07/19/18 06/30/21 mg-lycopene 300 mcg-lutein 250 mcg tablet (Centrum Silver) albuterol sulfate 90 mcg/actuation 2 puff INHALATION Q4H PRN 09/09/19 06/30/21 aerosol inhaler (Ventolin HFA) nadolol 20 mg tablet (Corgard) 40 mg PO DAILY 09/09/19 06/30/21 oxybutynin chloride 5 mg tablet 5 mg PO BID 09/09/19 06/30/21 pantoprazole 20 mg tablet,delayed 40 mg PO BID 09/09/19 06/30/21 release (Protonix) albuterol sulfate 2.5 mg INHALATION Q6H PRN 11/28/19 06/30/21 gabapentin 300 mg capsule See Rx Instructions .ROUTE .COMPLEX 01/15/20 06/30/21 (Neurontin) aspirin 81 mg chewable tablet 81 mg PO DAILY 06/26/21 06/30/21 atorvastatin 80 mg tablet (Lipitor) 80 mg PO HS 06/26/21 06/30/21 dulaglutide 4.5 mg/0.5 mL 4.5 mg SUBCUT WK 06/26/21 06/30/21 subcutaneous pen injector (Trulicity) insulin aspart U-100 100 unit/mL 0 unit SUBCUT AC 06/26/21 06/30/21 (3 mL) subcutaneous pen (Novolog Flexpen U-100 Insulin aspart) isosorbide mononitrate 30 mg 30 mg PO DAILY 06/26/21 06/30/21 tablet,extended release 24 hr levothyroxine 175 mcg tablet 175 mcg PO DAILYBB 06/26/21 06/30/21 (Synthroid) linaclotide 290 mcg capsule 290 mcg PO DAILYBB 06/26/21 06/30/21 (Linzess) metformin 500 mg tablet,extended 500 mg PO QDB 06/26/21 06/30/21 release 24 hr cinnamon bark 500 mg capsule 500 mg PO DAILY 06/30/21 06/30/21 (Cinnamon) cyclobenzaprine 10 mg tablet 10 mg PO HS 06/30/21 06/30/21 docusate sodium 100 mg capsule 100 mg PO DAILY 06/30/21 06/30/21 fluticasone 250 mcg-salmeterol 50 1 inh INHALATION BID 06/30/21 06/30/21 mcg/dose blistr powdr for inhalation (Advair Diskus) ibuprofen 800 mg tablet 800 mg PO DAILY PRN 06/30/21 06/30/21 ipratropium 0.5 mg-albuterol 3 mg 3 ml INHALATION QID PRN 06/30/21 06/30/21 (2.5 mg base)/3 mL nebulization soln lidocaine-prilocaine 2.5 %-2.5 % 1 applic TOPICAL DIRECTED PRN 06/30/21 06/30/21 topical cream nitroglycerin 0.4 mg sublingual 0.4 mg SUBLINGUAL DIRECTED PRN 06/30/21 06/30/21 tablet (Nitrostat) nystatin 100,000 unit/gram topical 1 applic TOPICAL TID 06/30/21 06/30/21 powder sennosides 8.6 mg-docusate sodium 1 tab-cap PO DAILY 06/30/21 06/30/21 50 mg tablet (Senna with Docusate Sodium) silver sulfadiazine 1 % topical 1 applic TOPICAL BID 06/30/21 06/30/21 cream (Silvadene) spironolactone 25 mg tablet 50 mg PO DAILY 06/30/21 06/30/21 tamsulosin 0.4 mg capsule (Flomax) 0.4 mg PO DAILY 06/30/21 06/30/21 Previous Rx's Medication Instructions Recorded cefdinir 300 mg capsule 300 mg PO BID 7 Days #14 cap 06/26/21 Results & Data (ED) Vital Signs Vital Signs - 24 hr 06/30/21 12:45 06/30/21 16:39 06/30/21 17:00 Temperature 36.2 C L Temperature Source Temporal Artery Scan Pulse Rate 72 64 66 Pulse Rate from SpO2 Sensor 64 66 Pulse Rhythm Respiratory Rate 20 11 L 13 Respiratory Effort / Characteristics Non-Labored Spontaneous Respiratory Depth Normal Blood Pressure 108/73 Blood Pressure Mean 84 Blood Pressure Position Sitting Pulse Oximetry 94 92 95 Oxygen Delivery Method Room Air Sepsis Recent Fever Within 48 Hours No Sepsis New/Unexplained Change in Mental Status N/A Sepsis Action Taken by Nursing No Action Required 06/30/21 17:30 06/30/21 18:00 06/30/21 18:15 Temperature Temperature Source Pulse Rate 66 65 63 Pulse Rate from SpO2 Sensor 67 64 Pulse Rhythm Regular Respiratory Rate 14 18 Respiratory Effort / Characteristics Respiratory Depth Blood Pressure 113/89 Blood Pressure Mean 97 Blood Pressure Position Pulse Oximetry 94 94 93 Oxygen Delivery Method Room Air Sepsis Recent Fever Within 48 Hours Sepsis New/Unexplained Change in Mental Status Sepsis Action Taken by Nursing 06/30/21 18:30 06/30/21 19:00 06/30/21 19:30 Temperature Temperature Source Pulse Rate 61 66 68 Pulse Rate from SpO2 Sensor 61 69 Pulse Rhythm Respiratory Rate 12 18 18 Respiratory Effort / Characteristics Respiratory Depth Blood Pressure 127/63 129/79 Blood Pressure Mean 84 95 Blood Pressure Position Pulse Oximetry 95 95 Oxygen Delivery Method Sepsis Recent Fever Within 48 Hours Sepsis New/Unexplained Change in Mental Status Sepsis Action Taken by Nursing Laboratory Data Result diagrams: 06/30/21 18:10 06/30/21 18:10 Lab Results 06/30/21 06/30/21 06/30/21 Range/Units 18:10 18:10 18:10 WBC 1.94 L (4.8-10.8) K/uL RBC 2.93 L (4.2-5.4) M/uL Hgb 8.6 L (12.0-16.0) g/dL Hct 27.3 L (37-47) % MCV 93.2 (80-100) fL MCH 29.4 (25-34) pg MCHC 31.5 L (32-36) g/dL RDW Std Deviation 66.8 H (36.4-46.3) fL RDW Coeff of Bradley 19.4 H (11.5-14.5) % Plt Count 65 L (130-400) K/uL Neutrophils % (Manual) 54.8 % Lymphocytes % (Manual) 22.6 % Monocytes % (Manual) 10.4 % Eosinophils % (Manual) 11.3 % Basophils % (Manual) 0.9 % Neutrophils # (Manual) 1.06 L (1.4-6.5) K/uL Total Absolute Neuts 1.06 L (1.4-6.5) K/uL Lymphocytes # (Manual) 0.44 L (1.2-3.4) K/uL Total Abs Lymphocytes 0.44 L (1.2-3.4) K/uL Monocytes # (Manual) 0.20 (0.11-0.59) K/uL Eosinophils # (Manual) 0.22 (0-0.5) K/uL Basophils # (Manual) 0.02 (0-0.2) K/uL Platelet Estimate Decreased L (Normal) Tear Drop Cells 1+ Ovalocytes 1+ Schistocytes 1+ Sodium 144 (136-145) mmol/L Potassium 4.2 (3.5-5.1) mmol/L Chloride 114 H (98-107) mmol/L Carbon Dioxide 26 (21-32) mmol/L Anion Gap 4.0 (3-11) BUN 20 H (7-18) mg/dl Creatinine 0.78 (0.6-1.2) mg/dl Est Cr Clr Drug Dosing 83.2 ml/min Est GFR ( Amer) 91.8 ml/min Est GFR (Non-Af Amer) 79.2 ml/min BUN/Creatinine Ratio 25.7 H (10-20) Glucose 190 H (70-99) mg/dl Lactate 1.9 (0.4-2.0) mmol/L Calcium 8.8 (8.5-10.1) mg/dl Magnesium (1.8-2.4) mg/dl Total Bilirubin 0.7 (0.2-1) mg/dl AST 35 (15-37) U/L ALT 33 (12-78) U/L Alkaline Phosphatase 126 H (45-117) U/L Troponin I < 0.015 (0-0.045) ng/ml Total Protein 6.9 (6.4-8.2) gm/dl Albumin 2.8 L (3.4-5.0) gm/dl Globulin 4.1 H (2.5-4.0) gm/dl Albumin/Globulin Ratio 0.7 L (0.9-2) Lipase 124 (73-393) U/L Procalcitonin (0-0.5) ng/ml COVID-19 Eval Order SARS-CoV-2 (PCR) (Negative) 06/30/21 06/30/21 06/30/21 Range/Units 18:10 18:10 18:10 WBC (4.8-10.8) K/uL RBC (4.2-5.4) M/uL Hgb (12.0-16.0) g/dL Hct (37-47) % MCV (80-100) fL MCH (25-34) pg MCHC (32-36) g/dL RDW Std Deviation (36.4-46.3) fL RDW Coeff of Bradley (11.5-14.5) % Plt Count (130-400) K/uL Neutrophils % (Manual) % Lymphocytes % (Manual) % Monocytes % (Manual) % Eosinophils % (Manual) % Basophils % (Manual) % Neutrophils # (Manual) (1.4-6.5) K/uL Total Absolute Neuts (1.4-6.5) K/uL Lymphocytes # (Manual) (1.2-3.4) K/uL Total Abs Lymphocytes (1.2-3.4) K/uL Monocytes # (Manual) (0.11-0.59) K/uL Eosinophils # (Manual) (0-0.5) K/uL Basophils # (Manual) (0-0.2) K/uL Platelet Estimate (Normal) Tear Drop Cells Ovalocytes Schistocytes Sodium (136-145) mmol/L Potassium (3.5-5.1) mmol/L Chloride (98-107) mmol/L Carbon Dioxide (21-32) mmol/L Anion Gap (3-11) BUN (7-18) mg/dl Creatinine (0.6-1.2) mg/dl Est Cr Clr Drug Dosing ml/min Est GFR ( Amer) ml/min Est GFR (Non-Af Amer) ml/min BUN/Creatinine Ratio (10-20) Glucose (70-99) mg/dl Lactate (0.4-2.0) mmol/L Calcium (8.5-10.1) mg/dl Magnesium (1.8-2.4) mg/dl Total Bilirubin (0.2-1) mg/dl AST (15-37) U/L ALT (12-78) U/L Alkaline Phosphatase (45-117) U/L Troponin I (0-0.045) ng/ml Total Protein (6.4-8.2) gm/dl Albumin (3.4-5.0) gm/dl Globulin (2.5-4.0) gm/dl Albumin/Globulin Ratio (0.9-2) Lipase (73-393) U/L Procalcitonin 0.06 (0-0.5) ng/ml COVID-19 Eval Order Covid[address] [facility] SARS-CoV-2 (PCR) NEGATIVE (Negative) 06/30/21 Range/Units 18:10 WBC (4.8-10.8) K/uL RBC (4.2-5.4) M/uL Hgb (12.0-16.0) g/dL Hct (37-47) % MCV (80-100) fL MCH (25-34) pg MCHC (32-36) g/dL RDW Std Deviation (36.4-46.3) fL RDW Coeff of Bradley (11.5-14.5) % Plt Count (130-400) K/uL Neutrophils % (Manual) % Lymphocytes % (Manual) % Monocytes % (Manual) % Eosinophils % (Manual) % Basophils % (Manual) % Neutrophils # (Manual) (1.4-6.5) K/uL Total Absolute Neuts (1.4-6.5) K/uL Lymphocytes # (Manual) (1.2-3.4) K/uL Total Abs Lymphocytes (1.2-3.4) K/uL Monocytes # (Manual) (0.11-0.59) K/uL Eosinophils # (Manual) (0-0.5) K/uL Basophils # (Manual) (0-0.2) K/uL Platelet Estimate (Normal) Tear Drop Cells Ovalocytes Schistocytes Sodium (136-145) mmol/L Potassium (3.5-5.1) mmol/L Chloride (98-107) mmol/L Carbon Dioxide (21-32) mmol/L Anion Gap (3-11) BUN (7-18) mg/dl Creatinine (0.6-1.2) mg/dl Est Cr Clr Drug Dosing ml/min Est GFR ( Amer) ml/min Est GFR (Non-Af Amer) ml/min BUN/Creatinine Ratio (10-20) Glucose (70-99) mg/dl Lactate (0.4-2.0) mmol/L Calcium (8.5-10.1) mg/dl Magnesium 1.9 (1.8-2.4) mg/dl Total Bilirubin (0.2-1) mg/dl AST (15-37) U/L ALT (12-78) U/L Alkaline Phosphatase (45-117) U/L Troponin I (0-0.045) ng/ml Total Protein (6.4-8.2) gm/dl Albumin (3.4-5.0) gm/dl Globulin (2.5-4.0) gm/dl Albumin/Globulin Ratio (0.9-2) Lipase (73-393) U/L Procalcitonin (0-0.5) ng/ml COVID-19 Eval Order SARS-CoV-2 (PCR) (Negative) Administered Medications Discontinued Medications Sodium Chloride (Nss) 500 mls @ 999 mls/hr IV .Q31M STA Stop: 06/30/21 16:58 Last Infusion: 06/30/21 18:40 Dose: 0 mls/hr Documented by: [id number] Admin: 06/30/21 18:06 Dose: 999 mls/hr Documented by: [id number] Ceftriaxone Sodium (Rocephin) 2,000 mg in 70 mls @ 140 mls/hr IV NOW STA Stop: 06/30/21 19:27 Last Admin: 06/30/21 19:35 Dose: 140 mls/hr Documented by: [id number] Ketorolac Tromethamine (Ketorolac Tromethamine 15 Mg/Ml Vial) 10 mg IV NOW ONE Stop: 06/30/21 18:59 Last Admin: 06/30/21 19:34 Dose: 10 mg Documented by: [id number] Imaging Data Radiologist's Impression: Abdomen/Pelvis CT 06/30/21 16:28 CT OF THE ABDOMEN AND PELVIS WITHOUT CONTRAST CLINICAL HISTORY: Right flank pain. COMPARISON STUDY: CT of the abdomen and pelvis June 26, 2021. TECHNIQUE: Axial images of the abdomen and pelvis were obtained without IV contrast. Images were reviewed in the axial, sagittal, and coronal planes. Au tomated exposure control was utilized for the study. A dose lowering technique was utilized adhering to the principles of ALARA. FINDINGS: Lung bases are unremarkable. Several small bilateral renal calculi measure up to 3 mm. There are no ureteral calculi and there is no hydronephrosis. This exam is compromised by motion artifact. Evaluation of the remainder of the abdomen and pelvis is suboptimal on this unenhanced exam. The liver is cirrhotic. Splenomegaly and varices formation is again noted. There is no evidence for a bowel obstruction. Colonic diverticulosis is noted without evidence for acute diverticulitis. Normal size hyperdense pelvic lymph nodes are again noted. No acute fracture or suspicious lesion is identified within the visualized skeletal structures. No biliary or pancreatic ductal dilatation is present. There is no peripancreatic or pericholecystic infiltration. IMPRESSION: 1. Several small bilateral renal calculi. No ureteral calculi or hydronephrosis. 2. No bowel obstruction. 3. Cirrhosis with splenomegaly and varices formation, unchanged. ACT 112: Negative or not required by law. Electronically signed by: Lucas Lambert M.D. 06/30/2021 5:35 PM Discharge Plan Visit Data Chief Complaint: Urinary Symptoms Stated Complaint: YEAST INFECTION, KIDNEY STONES ED Provider: Surya Villarreal Discharge Problem: Back pain, Acute UTI Patient Disposition: Being Evaluated by Hospitalist Forms Stand Alone Forms: [facility] Prescriptions Prescriptions: No Action escitalopram oxalate [Lexapro] 20 mg tablet 20 mg PO DAILY RF: 0 fluticasone propionate [Flonase Allergy Relief] 50 mcg/actuation Martin,Suspension 2 spray Intranasal QAM RF: 0 Centrum Silver 0.4-300-250 mg-mcg-mcg Tablet 1 tab PO QAM RF: 0 pantoprazole [Protonix] 20 mg tablet,delayed release (DR/EC) 40 mg PO BID RF: 0 albuterol sulfate [Ventolin HFA] 90 mcg/actuation Hfa Aerosol Inhaler 2 puff INHALATION Q4H PRN (Reason: Cough or Wheezing) RF: 0 oxybutynin chloride 5 mg tablet 5 mg PO BID RF: 0 nadolol [Corgard] 20 mg tablet 40 mg PO DAILY RF: 0 gabapentin [Neurontin] 300 mg Capsule See Rx Instructions .ROUTE .COMPLEX RF: 0 trazodone 50 mg Tablet 50 mg PO HS RF: 0 potassium chloride [K-Tab] 10 mEq Tablet Extended Release 10 meq PO QDL RF: 0 ascorbic acid (vitamin C) [Vitamin C] 500 mg Tablet 500 mg PO QAM RF: 0 furosemide [Lasix] 20 mg Tablet 20 mg PO QAM PRN (Reason: Edema) RF: 0 Lantus Solostar U-100 Insulin 100 unit/mL (3 mL) Insulin Pen 32 unit SUBCUT HS RF: 0 albuterol sulfate 2.5 mg /3 mL (0.083 %) solution for nebulization 2.5 mg inhalation Q6H PRN (Reason: Wheezing) RF: 0 levothyroxine [Synthroid] 175 mcg tablet 175 mcg PO DAILYBB RF: 0 atorvastatin [Lipitor] 80 mg tablet 80 mg PO HS RF: 0 isosorbide mononitrate 30 mg tablet extended release 24 hr 30 mg PO DAILY RF: 0 metformin 500 mg tablet extended release 24 hr 500 mg PO QDB RF: 0 insulin aspart U-100 [Novolog Flexpen U-100 Insulin] 100 unit/mL (3 mL) insulin pen 0 unit SUBCUT AC RF: 0 Linzess 290 mcg capsule 290 mcg PO DAILYBB RF: 0 aspirin [Aspirin Child] 81 mg Tablet,Chewable 81 mg PO DAILY RF: 0 Trulicity 4.5 mg/0.5 mL pen injector 4.5 mg SUBCUT WK RF: 0 cefdinir 300 mg capsule 300 mg PO BID 7 Days Qty: 14 RF: 0 cyclobenzaprine 10 mg Tablet 10 mg PO HS RF: 0 silver sulfadiazine [Silvadene] 1 % Cream 1 applic TOPICAL BID RF: 0 fluticasone propion-salmeterol [Advair Diskus] 250-50 mcg/dose Blister With Device 1 inh INHALATION BID RF: 0 ipratropium-albuterol [DuoNeb] 0.5 mg-3 mg(2.5 mg base)/3 mL Solution For Nebulization 3 ml INHALATION QID PRN (Reason: Shortness Of Breath) RF: 0 ibuprofen 800 mg Tablet 800 mg PO DAILY PRN (Reason: Pain) RF: 0 sennosides-docusate sodium [Senna with Docusate Sodium] 8.6-50 mg Tablet 1 tab-cap PO DAILY RF: 0 spironolactone 25 mg Tablet 50 mg PO DAILY RF: 0 lidocaine-prilocaine 2.5-2.5 % Cream 1 applic topical DIRECTED PRN (Reason: APPLY TO SKIN AROUND APORT PRIOR TO ACCESS.) RF: 0 tamsulosin [Flomax] 0.4 mg Capsule 0.4 mg PO DAILY RF: 0 nitroglycerin [Nitrostat] 0.4 mg Tablet, Sublingual 0.4 mg sublingual DIRECTED PRN (Reason: Chest Pain) RF: 0 docusate sodium 100 mg Capsule 100 mg PO DAILY RF: 0 nystatin 100,000 unit/gram Powder 1 applic TOPICAL TID RF: 0 cinnamon bark [Cinnamon] 500 mg Capsule 500 mg PO DAILY RF: 0 Referrals Referrals: Roel Cedeno DO [Primary Care Provider] -
--- NOTE | 2021-06-30 17:36 | CT Scan Report ---
CT OF THE ABDOMEN AND PELVIS WITHOUT CONTRAST CLINICAL HISTORY: Right flank pain. COMPARISON STUDY: CT of the abdomen and pelvis June 26, 2021. TECHNIQUE: Axial images of the abdomen and pelvis were obtained without IV contrast. Images were revi ewed in the axial, sagittal, and coronal planes. Automated exposure control was utilized for the markus dy. A dose lowering technique was utilized adhering to the principles of ALARA. FINDINGS: Lung bases are unremarkable. Several small bilateral renal calculi measure up to 3 mm. Ther e are no ureteral calculi and there is no hydronephrosis. This exam is compromised by motion artifact . Evaluation of the remainder of the abdomen and pelvis is suboptimal on this unenhanced exam. The li deondre is cirrhotic. Splenomegaly and varices formation is again noted. There is no evidence for a bowel obstruction. Colonic diverticulosis is noted without evidence for acute diverticulitis. Normal size hyperdense pelvic lymph nodes are again noted. No acute fracture or suspicious lesion is identified w ithin the visualized skeletal structures. No biliary or pancreatic ductal dilatation is present. Ther e is no peripancreatic or pericholecystic infiltration. IMPRESSION: 1. Several small bilateral renal calculi. No ureteral calculi or hydronephrosis. 2. No bowel obstruction. 3. Cirrhosis with splenomegaly and varices formation, unchanged. ACT 112: Negative or not required by law. Electronically signed by: Lucas Lambert M.D. 06/30/2021 5:35 PM
[2021-06-30 18:16] LABS: Mean Corpuscular Hgb Conc 31.5 g/dL (32-36)
[2021-06-30 18:33] LABS: Albumin Level 2.8 gm/dl (3.4-5.0); Aspartate Aminotransferase 35 U/L (15-37); BUN Creatinine Ratio 25.7 (10-20); Blood Urea Nitrogen 20 mg/dl (7-18); Calcium 8.8 mg/dl (8.5-10.1); Carbon Dioxide 26 mmol/L (21-32); Chloride 114 mmol/L (98-107); Creatinine Clr Calc Pharmacy 83.2 ml/min; Est GFR (African American) 91.8 ml/min; Est GFR (Non-African American) 79.2 ml/min; Glucose 190 mg/dl (70-99); Lipase 124 U/L (73-393); Potassium 4.2 mmol/L (3.5-5.1); Sodium 144 mmol/L (136-145)
[2021-06-30 18:35] LABS: Hematocrit (blood only) 27.3 % (37-47); Hemoglobin 8.6 g/dL (12.0-16.0); Mean Corpuscular Hemoglobin 29.4 pg (25-34); Mean Corpuscular Volume 93.2 fL (80-100); RDW Coefficient of Variation 19.4 % (11.5-14.5); RDW Standard Deviation 66.8 fL (36.4-46.3); Red Blood Count 2.93 M/uL (4.2-5.4); White Blood Count 1.94 K/uL (4.8-10.8)
[2021-06-30 18:38] LABS: Alanine Aminotransferase 33 U/L (12-78); Albumin Globulin Ratio 0.7 (0.9-2); Alkaline Phosphatase 126 U/L (45-117); Bilirubin,Total 0.7 mg/dl (0.2-1); Globulin 4.1 gm/dl (2.5-4.0); Total Protein 6.9 gm/dl (6.4-8.2); Troponin I < 0.015 ng/ml (0-0.045)
[2021-06-30 18:39] LABS: Platelet Count 65 K/uL (130-400)
[2021-06-30 18:41] LABS: ALC (manual) 0.44 K/uL (1.2-3.4); ANC (manual) 1.06 K/uL (1.4-6.5); Basophils # (manual) 0.02 K/uL (0-0.2); Basophils % (manual) 0.9 %; Eosinophils # (manual) 0.22 K/uL (0-0.5); Eosinophils % (manual) 11.3 %; Lymphocytes # (manual) 0.44 K/uL (1.2-3.4); Lymphocytes % (manual) 22.6 %; Monocytes % (manual) 10.4 %; Neutrophils # (manual) 1.06 K/uL (1.4-6.5); Neutrophils % (manual) 54.8 %; Ovalocytes 1+; Platelet Estimate Decreased (Normal); Schistocytes 1+; Tear Drop Cells 1+
[2021-06-30] MEDS ORDERED: cefTRIAXone SODIUM 2,000 MG/70 ML BAG IV STA (18:58)
[2021-06-30] MEDS ORDERED: KETOROLAC TROMETHAMINE 15 MG/ML VIAL IV ONE (18:58)
--- NOTE | 2021-06-30 19:58 | History & Physical Report ---
Date of Service June 30, 2021 Assessment & Plan (1) Back pain: Plan: History chronic back pain, history of fibromyalgia as per records Rule out recurrent UTI, osteomyelitis given fever chills complaints restrictive lung disease as per records, lung status at baseline mood disorder, at baseline hypertension, BP on the lower side NAFLD cirrhosis, no overt decompensation DM2 insulin requiring, suboptimal control as of recent hemoglobin A1c of 7.14 June 2021 chronic pancytopenia secondary to cirrhosis, hemoglobin at baseline Hypothyroidism, TSH noted to be low cerebral palsy as per records Possible functional disability OBS GMF Recollect UA, hold off on antimicrobial RX until repeat UA obtained Lumbar spine MRI Further management pending work-up results Analgesia Basal insulin, ISS BG goal [id number], carb count coverage PT OT eval DVT prophylaxis. SCDs RE thrombocytopenia Full code Patient requesting updates from providers. Mr. Dick Bustos, contact numbers [phone]. Text document was generated using Mpay[employer] voice recognition software. It may contain grammatical or spelling errors. Kindly contact undersigned for clarification of any documentation item in question. History of Present Illness Chief Complaint: Back pain, feel crappy Primary Care Provider: Roel Cedeno DO History obtained from the patient and records. Medical history significant for restrictive lung disease as per records, mood disorder, fibromyalgia, hypertension, hyperlipidemia, NAFLD cirrhosis, THAD on CPAP, hypothyroidism DM2 insulin requiring chronic pancytopenia (baseline hemoglobin 8-9), cerebral palsy as per records, recurrent UTIs, hx MRSA/VRE as per records. Recent confinement February 2020 for complicated UTI. CS grew Citrobacter. Patient discharged on cefdinir course. 06/26/21 Patient seen at the ER for right flank pain symptoms. Unremarkable imaging. Patient discharged on cefdinir course for possible UTI. 06/29/21 Patient called back to the ER with urine CS growing Rachelle species. Diflucan course prescribed. Patient seen at PCPs office today on follow-up visit. Still with back discomfort and feeling terrible. Unable to move around as much as home as per patient. Low back pain without radiation to the legs. No recollection of recent trauma. No chest pain, no S OB. Patient with fever chills. No unusual headache symptoms. Patient adamant about returning to ER as per outpatient provider note. IV Ceftriaxone administered at the ER. MEDICAL HISTORY: As above. SURGICAL HISTORY: She has had dental surgery, gynecologic section, hip surgery and tendon repair, bone debridement, vascular procedure. FAMILY HISTORY: Heart disease. Diabetes PERSONAL AND SOCIAL HISTORY: Nonsmoker. No chronic intake of alcoholic beverages, disabled. Allergies Allergy/AdvReac Type Severity Reaction Status Date / Time Penicillins Allergy Intermediate Rash Verified 06/30/21 16:02 adhesive tape Allergy Mild ITCHING Verified 06/30/21 16:02 perflutren AdvReac Intermediate LOWER BACK Verified 06/30/21 16:02 PAIN Home Medications Medication Instructions Recorded Confirmed Type ascorbic acid (vitamin C) 500 mg 500 mg PO QAM 06/16/18 06/30/21 History tablet (Vitamin C) furosemide 20 mg tablet (Lasix) 20 mg PO QAM PRN 06/16/18 06/30/21 History insulin glargine 100 unit/mL (3 32 unit SUBCUT HS 06/16/18 06/30/21 History mL) subcutaneous pen (Lantus Solostar U-100 Insulin) potassium chloride 10 mEq 10 meq PO QDL 06/16/18 06/30/21 History tablet,extended release (K-Tab) trazodone 50 mg tablet 50 mg PO HS 06/16/18 06/30/21 History escitalopram oxalate 20 mg tablet 20 mg PO DAILY 07/19/18 06/30/21 History (Lexapro) fluticasone propionate 50 2 spray INTRANASAL QAM 07/19/18 06/30/21 History mcg/actuation nasal spray,suspension (Flonase Allergy Relief) obwshhrb-gwi-jtkfa acid 0.4 1 tab PO QAM 07/19/18 06/30/21 History mg-lycopene 300 mcg-lutein 250 mcg tablet (Centrum Silver) albuterol sulfate 90 mcg/actuation 2 puff INHALATION Q4H PRN 09/09/19 06/30/21 History aerosol inhaler (Ventolin HFA) nadolol 20 mg tablet (Corgard) 40 mg PO DAILY 09/09/19 06/30/21 History oxybutynin chloride 5 mg tablet 5 mg PO BID 09/09/19 06/30/21 History pantoprazole 20 mg tablet,delayed 40 mg PO BID 09/09/19 06/30/21 History release (Protonix) albuterol sulfate 2.5 mg INHALATION Q6H PRN 11/28/19 06/30/21 History gabapentin 300 mg capsule See Rx Instructions .ROUTE .COMPLEX 01/15/20 06/30/21 History (Neurontin) aspirin 81 mg chewable tablet 81 mg PO DAILY 06/26/21 06/30/21 History atorvastatin 80 mg tablet (Lipitor) 80 mg PO HS 06/26/21 06/30/21 History cefdinir 300 mg capsule 300 mg PO BID 7 Days #14 cap 06/26/21 06/30/21 Rx dulaglutide 4.5 mg/0.5 mL 4.5 mg SUBCUT WK 06/26/21 06/30/21 History subcutaneous pen injector (Trulicity) insulin aspart U-100 100 unit/mL 0 unit SUBCUT AC 06/26/21 06/30/21 History (3 mL) subcutaneous pen (Novolog Flexpen U-100 Insulin aspart) isosorbide mononitrate 30 mg 30 mg PO DAILY 06/26/21 06/30/21 History tablet,extended release 24 hr levothyroxine 175 mcg tablet 175 mcg PO DAILYBB 06/26/21 06/30/21 History (Synthroid) linaclotide 290 mcg capsule 290 mcg PO DAILYBB 06/26/21 06/30/21 History (Linzess) metformin 500 mg tablet,extended 500 mg PO QDB 06/26/21 06/30/21 History release 24 hr cinnamon bark 500 mg capsule 500 mg PO DAILY 06/30/21 06/30/21 History (Cinnamon) cyclobenzaprine 10 mg tablet 10 mg PO HS 06/30/21 06/30/21 History docusate sodium 100 mg capsule 100 mg PO DAILY 06/30/21 06/30/21 History fluticasone 250 mcg-salmeterol 50 1 inh INHALATION BID 06/30/21 06/30/21 History mcg/dose blistr powdr for inhalation (Advair Diskus) ibuprofen 800 mg tablet 800 mg PO DAILY PRN 06/30/21 06/30/21 History ipratropium 0.5 mg-albuterol 3 mg 3 ml INHALATION QID PRN 06/30/21 06/30/21 History (2.5 mg base)/3 mL nebulization soln lidocaine-prilocaine 2.5 %-2.5 % 1 applic TOPICAL DIRECTED PRN 06/30/21 06/30/21 History topical cream nitroglycerin 0.4 mg sublingual 0.4 mg SUBLINGUAL DIRECTED PRN 06/30/21 06/30/21 History tablet (Nitrostat) nystatin 100,000 unit/gram topical 1 applic TOPICAL TID 06/30/21 06/30/21 History powder sennosides 8.6 mg-docusate sodium 1 tab-cap PO DAILY 06/30/21 06/30/21 History 50 mg tablet (Senna with Docusate Sodium) silver sulfadiazine 1 % topical 1 applic TOPICAL BID 06/30/21 06/30/21 History cream (Silvadene) spironolactone 25 mg tablet 50 mg PO DAILY 06/30/21 06/30/21 History tamsulosin 0.4 mg capsule (Flomax) 0.4 mg PO DAILY 06/30/21 06/30/21 History Past Med/Surg History Medical History (Updated 06/30/21 @ 20:05 by Surya Villarreal M.D.) Ambulatory dysfunction Asthma DOES NOT USE INH. REPORTS USING NEB TREATMENTS BID. Bilateral lower extremity edema Cardiac murmur does not follow w/ cardio; echo 11/2017 [place] Cerebral palsy Chronic back pain Chronic pain Dark stools Diplopia reports intermittent x 1-2 weeks. pt reports PCP aware and scheduled for brain MRI 03/11 at [place]. 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 Major depressive disorder, recurrent, moderate Morbid obesity with BMI of 50.0-59.9, adult Obstructive sleep apnea CPAP + OXYGEN AT 2 LPM @ NIGHT On home oxygen therapy 2 LPM @ NIGHT + CPAP Osteoarthritis Pancreatic cyst Poor historian SOB (shortness of breath) on exertion Venous insufficiency Wheelchair bound Surgical History H/O wisdom tooth extraction History of Achilles tendon repair History of section History of colonoscopy History of dilatation and curettage History of esophagogastroduodenoscopy (EGD) EUS 02/22/2019 [facility] History of hip surgery History of strabismus surgery History of tooth extraction Family History Father Family history of diabetes mellitus Myocardial infarction, Onset Age: 61 Mother Myocardial infarction, Onset Age: 72 Sister Myocardial infarction Social History Smoking Status: Never smoker Second Hand Exposure: No; Do You Dip or Chew Tobacco: No; Tobacco Cessation Education Requested by Patient: No Hx Alcohol Use: No Hx Substance Use: No Preferred Language: Wolof Communication Ability: Effective Route Agent Required: No Beliefs That Will Affect Care: None marital status: Current Living Situation: Family Current Living Situation Comment: Lives with , Sister and grandson Other Information That Helps Us Care for You: No Feels Safe at Home: Yes Safety Concerns: Feels Safe At This Time Assistive Devices: Mechanical Lift Review of Systems Review of Systems: As per HPI, all 10 systems reviewed, all other ROS negative Physical Exam Physical Exam: GENERAL: uncomfortable, slightly anxious, obese, no respiratory distress SKIN: Pallor warm HEENT: Pale palpebral conjunctivae, no ptosis, dry buccal mucosa NECK : Supple, short neck, no tenderness CHEST : Decreased breath sounds , no tenderness HEART : RRR, no obvious murmurs ABDOMEN: Some distention, nontender BACK : Low back tenderness, limited leg raises (chronic as per patient) EXTREMITIES : Bilateral LE swelling, no LE tenderness, no other conspicuous deformities noted NEUROLOGIC : Coherent, no facial asymmetry, gait and stance not assessed Results & Data Results & Data ([facility]) Vital Signs (Past 12 Hours) Vital Signs Temp Pulse Resp BP Pulse Ox 06/30/21 19:30 68 18 129/79 95 06/30/21 19:00 66 18 06/30/21 18:30 61 12 127/63 95 06/30/21 18:15 63 93 06/30/21 18:00 65 18 113/89 94 06/30/21 17:30 66 14 94 06/30/21 17:00 66 13 95 06/30/21 16:39 64 11 L 92 06/30/21 12:45 36.2 C L 72 20 108/73 94 Laboratory Results Laboratory Results WBC 1.94 K/uL (4.8-10.8) L 06/30/21 18:10 RBC 2.93 M/uL (4.2-5.4) L 06/30/21 18:10 Hgb 8.6 g/dL (12.0-16.0) L 06/30/21 18:10 Hct 27.3 % (37-47) L 06/30/21 18:10 MCV 93.2 fL (80-100) 06/30/21 18:10 MCH 29.4 pg (25-34) 06/30/21 18:10 MCHC 31.5 g/dL (32-36) L 06/30/21 18:10 RDW Std Deviation 66.8 fL (36.4-46.3) H 06/30/21 18:10 RDW Coeff of Bradley 19.4 % (11.5-14.5) H 06/30/21 18:10 Plt Count 65 K/uL (130-400) L 06/30/21 18:10 Neutrophils % (Manual) 54.8 % 06/30/21 18:10 Lymphocytes % (Manual) 22.6 % 06/30/21 18:10 Monocytes % (Manual) 10.4 % 06/30/21 18:10 Eosinophils % (Manual) 11.3 % 06/30/21 18:10 Basophils % (Manual) 0.9 % 06/30/21 18:10 Neutrophils # (Manual) 1.06 K/uL (1.4-6.5) L 06/30/21 18:10 Total Absolute Neuts 1.06 K/uL (1.4-6.5) L 06/30/21 18:10 Lymphocytes # (Manual) 0.44 K/uL (1.2-3.4) L 06/30/21 18:10 Total Abs Lymphocytes 0.44 K/uL (1.2-3.4) L 06/30/21 18:10 Monocytes # (Manual) 0.20 K/uL (0.11-0.59) 06/30/21 18:10 Eosinophils # (Manual) 0.22 K/uL (0-0.5) 06/30/21 18:10 Basophils # (Manual) 0.02 K/uL (0-0.2) 06/30/21 18:10 Platelet Estimate Decreased (Normal) L 06/30/21 18:10 Tear Drop Cells 1+ 06/30/21 18:10 Ovalocytes 1+ 06/30/21 18:10 Schistocytes 1+ 06/30/21 18:10 Sodium 144 mmol/L (136-145) 06/30/21 18:10 Potassium 4.2 mmol/L (3.5-5.1) 06/30/21 18:10 Chloride 114 mmol/L (98-107) H 06/30/21 18:10 Carbon Dioxide 26 mmol/L (21-32) 06/30/21 18:10 Anion Gap 4.0 (3-11) 06/30/21 18:10 BUN 20 mg/dl (7-18) H 06/30/21 18:10 Creatinine 0.78 mg/dl (0.6-1.2) 06/30/21 18:10 Est Cr Clr Drug Dosing 83.2 ml/min 06/30/21 18:10 Est GFR ( Amer) 91.8 ml/min 06/30/21 18:10 Est GFR (Non-Af Amer) 79.2 ml/min 06/30/21 18:10 BUN/Creatinine Ratio 25.7 (10-20) H 06/30/21 18:10 Glucose 190 mg/dl (70-99) H 06/30/21 18:10 Lactate 1.9 mmol/L (0.4-2.0) 06/30/21 18:10 Calcium 8.8 mg/dl (8.5-10.1) 06/30/21 18:10 Magnesium 1.9 mg/dl (1.8-2.4) 06/30/21 18:10 Total Bilirubin 0.7 mg/dl (0.2-1) 06/30/21 18:10 AST 35 U/L (15-37) 06/30/21 18:10 ALT 33 U/L (12-78) 06/30/21 18:10 Alkaline Phosphatase 126 U/L (45-117) H 06/30/21 18:10 Troponin I < 0.015 ng/ml (0-0.045) 06/30/21 18:10 Total Protein 6.9 gm/dl (6.4-8.2) 06/30/21 18:10 Albumin 2.8 gm/dl (3.4-5.0) L 06/30/21 18:10 Globulin 4.1 gm/dl (2.5-4.0) H 06/30/21 18:10 Albumin/Globulin Ratio 0.7 (0.9-2) L 06/30/21 18:10 Lipase 124 U/L (73-393) 06/30/21 18:10 Procalcitonin 0.06 ng/ml (0-0.5) 06/30/21 18:10 COVID-19 Eval Order Covid19 at [facility] 06/30/21 18:10 SARS-CoV-2 (PCR) NEGATIVE (Negative) 06/30/21 18:10 Impressions Abdomen/Pelvis CT 06/30/21 16:28 CT OF THE ABDOMEN AND PELVIS WITHOUT CONTRAST CLINICAL HISTORY: Right flank pain. COMPARISON STUDY: CT of the abdomen and pelvis June 26, 2021. TECHNIQUE: Axial images of the abdomen and pelvis were obtained without IV contrast. Images were reviewed in the axial, sagittal, and coronal planes. Automated exposure control was utilized for the study. A dose lowering technique was utilized adhering to the principles of ALARA. FINDINGS: Lung bases are unremarkable. Several small bilateral renal calculi measure up to 3 mm. There are no ureteral calculi and there is no hydronephrosis. This exam is compromised by motion artifact. Evaluation of the remainder of the abdomen and pelvis is suboptimal on this unenhanced exam. The l iver is cirrhotic. Splenomegaly and varices formation is again noted. There is no evidence for a bowel obstruction. Colonic diverticulosis is noted without evidence for acute diverticulitis. Normal size hyperdense pelvic lymph nodes are again noted. No acute fracture or suspicious lesion is identified within the visualized skeletal structures. No biliary or pancreatic ductal dilatation is present. There is no peripancreatic or pericholecystic infiltration. IMPRESSION: 1. Several small bilateral renal calculi. No ureteral calculi or hydronephrosis. 2. No bowel obstruction. 3. Cirrhosis with splenomegaly and varices formation, unchanged. ACT 112: Negative or not required by law. Electronically signed by: Lucas Lambert M.D. 06/30/2021 5:35 PM (1) Back pain Back pain laterality: unspecified Back pain location: low back pain Chronicity: chronic Sciatica presence: without sciatica Qualified Code(s): M54.50 - Low back pain, unspecified; G89.29 - Other chronic pain
[2021-06-30] MEDS ORDERED: traMADol HCL 50 MG TABLET PO STA (20:06)
[2021-06-30 21:00] LABS: Lyme Ab IgG w/WB Rflx Negative (Negative); Lyme Ab IgM w/WB Rflx Negative (Negative)
[2021-06-30 21:04] LABS: Thyroid Stimulating Hormone 0.035 uIu/ml (0.300-4.500)
[2021-06-30 21:17] LABS: T4 Free Thyroxine 1.6 ng/dl (0.8-1.6)
[2021-06-30] MEDS ORDERED: ACETAMINOPHEN 325 MG TAB PO PRN (22:01)
[2021-06-30] MEDS ORDERED: PROMETHAZINE HCL 12.5 MG in SODIUM CHLORIDE 0.9% 50 ML IV PRN (22:01)
[2021-06-30] MEDS ORDERED: traMADol HCL 50 MG TABLET PO PRN (22:01)
[2021-06-30] MEDS ORDERED: GABAPENTIN 300 MG CAP PO PRN (22:19)
[2021-06-30] MEDS: ATORVASTATIN 40 MG TAB PO SCH (22:44)
[2021-06-30] MEDS: traZODone HCL 50 MG TAB PO SCH (22:45)
[2021-06-30] MEDS: OXYBUTYNIN CHLORIDE 5 MG TAB PO SCH (22:45)
[2021-06-30] MEDS: PANTOprazole 40 MG TAB PO SCH (22:45)
[2021-06-30] MEDS: GABAPENTIN 300 MG CAP PO SCH (22:46)
[2021-07-01] MEDS ORDERED: GADOBUTROL 65ML VIAL IV ONE (00:20)
[2021-07-01] MEDS ORDERED: GLUCOSE 10 TABS/TUBE PO PRN (00:58)
[2021-07-01] MEDS ORDERED: CARBOHYDRATES FOR HYPOGLYCEMIA PO PRN (00:58)
[2021-07-01] MEDS ORDERED: GLUCOSE 40% GEL 15 GM TUBE PO PRN (00:58)
[2021-07-01] MEDS ORDERED: DEXTROSE 50% 50 ML SYRINGE IV PRN (00:58)
[2021-07-01] MEDS ORDERED: GLUCAGON FOR INJ 1 MG VIAL SQ PRN (00:58)
[2021-07-01] MEDS: INSULIN ASPART 100 UNITS/ML 3 ML PEN SC SCH ×5 (01:55→21:47)
[2021-07-01] MEDS: LINACLOTIDE 145 MCG CAPSULE PO SCH (06:17)
[2021-07-01] MEDS: LEVOTHYROXINE SODIUM 175 MCG TABLET PO SCH (06:17)
[2021-07-01 06:47] LABS: Mean Corpuscular Hgb Conc 30.5 g/dL (32-36)
[2021-07-01 06:54] LABS: Hematocrit (blood only) 25.9 % (37-47); Hemoglobin 7.9 g/dL (12.0-16.0); Mean Corpuscular Hemoglobin 28.5 pg (25-34); Mean Corpuscular Volume 93.5 fL (80-100); RDW Coefficient of Variation 19.2 % (11.5-14.5); RDW Standard Deviation 66.5 fL (36.4-46.3); Red Blood Count 2.77 M/uL (4.2-5.4); White Blood Count 1.78 K/uL (4.8-10.8)
[2021-07-01 07:10] LABS: Platelet Count 73 K/uL (130-400)
[2021-07-01 07:11] LABS: Albumin Level 2.6 gm/dl (3.4-5.0); BUN Creatinine Ratio 32.6 (10-20); Calcium 8.8 mg/dl (8.5-10.1); Creatinine Clr Calc Pharmacy 106.3 ml/min; Est GFR (African American) 107.8 ml/min; Potassium 3.7 mmol/L (3.5-5.1)
[2021-07-01 07:12] LABS: Anisocytosis Present; Basophils # (auto) 0.01 K/uL (0-0.2); Basophils % (auto) 0.6 %; Eosinophils # (auto) 0.15 K/uL (0-0.5); Eosinophils % (auto) 8.4 %; Hypochromasia Present; Lymphocytes # (auto) 0.57 K/uL (1.2-3.4); Monocytes # (auto) 0.25 K/uL (0.11-0.59); Platelet Estimate Decreased (Normal)
[2021-07-01 07:14] LABS: Albumin Globulin Ratio 0.7 (0.9-2); Bilirubin,Total 0.7 mg/dl (0.2-1); Globulin 3.9 gm/dl (2.5-4.0); Total Protein 6.5 gm/dl (6.4-8.2)
[2021-07-01] MEDS ORDERED: DOCUSATE SODIUM/SENNA 50/8.6MG TAB PO SCH (09:00)
[2021-07-01] MEDS: INSULIN GLARGINE SOLOSTAR 100 UNITS/ML 3 ML PEN SC SCH (09:41)
[2021-07-01] MEDS: FLUTICASONE/VILANTEROL 200/25MCG 14 PUFFS/INHALER INH SCH (09:47)
[2021-07-01] MEDS: PANTOprazole 40 MG TAB PO SCH ×2 (09:47→21:45)
[2021-07-01] MEDS: OXYBUTYNIN CHLORIDE 5 MG TAB PO SCH ×2 (09:48→21:44)
[2021-07-01] MEDS: ASPIRIN 81 MG ECTAB PO SCH (09:48)
[2021-07-01] MEDS: TAMSULOSIN HCL 0.4 MG CAP PO SCH (09:49)
[2021-07-01] MEDS: ESCITALOPRAM OXALATE 20 MG TAB PO SCH (09:49)
[2021-07-01] MEDS: DOCUSATE SODIUM 100 MG CAP PO SCH (09:50)
[2021-07-01] MEDS: ISOSORBIDE MONO EXTENDED REL 30 MG TABCR PO SCH (09:50)
[2021-07-01] MEDS: FLUTICASONE PROPIONATE NA SPR 16 GM BTL SCH (09:50)
[2021-07-01] MEDS: GABAPENTIN 300 MG CAP PO SCH ×3 (09:51→21:43)
--- NOTE | 2021-07-01 10:12 | Magnetic Resonance Report ---
MRI OF THE LUMBAR SPINE WITH AND WITHOUT CONTRAST CLINICAL HISTORY: back pain, fever/chills COMPARISON STUDY: Lumbar spine MRI July 24, 2015. TECHNIQUE: Utilizing a 1.5 Deena magnet and dedicated coil, multiplanar, multiecho imaging of the mirella mbar spine was performed before and after uneventful IV administration of 13 mL of Gadavist. FINDINGS: For purposes of numbering on this exam, the L5-S1 disc space is assigned to axial image 2427. Alignme nt of the lumbar spine is anatomic. Vertebral body heights are maintained. Exam is mildly compromised by artifact. There is no intracanalicular mass or fluid collection. Conus terminates at the upper L1 level. Paravertebral soft tissues are unremarkable with the exception of mild edema and enhancement within the paraspinal musculature which is of doubtful significance. Moderate multilevel facet arthro sis and mild multilevel degenerative disc disease is present. There is no evidence for discitis. Ther e is no epidural abscess. L1-2: There is mild disc space narrowing with disc bulge. There is slight narrowing of the central ca nal. Neural foramen are patent. L2-3: Central canal and neural foramen are patent. There is facet arthrosis. L3-4: Central canal and neural foramen are patent. There is facet arthrosis. L4-5: Central canal and neural foramen are patent. There is facet arthrosis. L5-S1: Facet arthrosis is present. There is minimal disc bulge. Central canal and neural foramen are patent. IMPRESSION: 1. No evidence for discitis. No epidural abscess. 2. Mild edema and enhancement within the paraspinal musculature which is similar to previous MRI. Thi s is of doubtful significance. 3. Moderate multilevel facet arthrosis and mild multilevel degenerative disc disease. ACT 112: Negative or not required by law. Electronically signed by: Lucas Lambert M.D. 07/01/2021 10:11 AM
[2021-07-01 12:52] LABS: Appearance Urine Cloudy (Clear); Bacteria Urine Automated Negative (Negative); Bilirubin Urine Negative (Negative); Blood Urine 1+ (Negative); Color Urine Dark Yellow; Epithelial Cell Urine Auto >30 /lpf (0-5); Glucose Urine UA Negative (Negative); Ketones Urine Trace (Negative); Leukocyte Esterase Urine 1+ (Negative); Nitrite Urine Negative (Negative); Protein Urine Negative (Negative); Specific Gravity Urine 1.034 (1.000-1.030); Urobilinogen Urine Negative (Negative); WBC Urine Automated >30 /hpf (0-5); pH Urine 5.5 (4.5-7.5)
[2021-07-01 13:11] LABS: Renal Epithelial Cells Urine 0-5 /lpf (0-5)
--- NOTE | 2021-07-01 13:28 | Electrocardiogram Report ---
Test Reason : Blood Pressure : / mmHG Vent. Rate : 060 BPM Atrial Rate : 060 BPM P-R Int : 240 ms QRS Dur : 094 ms QT Int : 466 ms P-R-T Axes : 000 002 033 degrees QTc Int : 466 ms Sinus rhythm with 1st degree A-V block Abnormal ECG When compared with ECG of 26-JUN-2021 11:35, No significant change Confirmed by Joel Kim ([id number]) on 07/01/2021 1:28:15 PM Referred By: REFERRED SELF Confirmed By:Joel Kmi
[2021-07-01] MEDS ORDERED: ALBUTEROL 0.083% NEBU SOLN 3 ML VIAL INH PRN (19:02)
--- NOTE | 2021-07-01 19:02 | Hospitalist Progress Note ---
Date of Service July 01, 2021 Assessment & Plan (1) Back pain: Plan: Chronic back pain H/O fibromyalgia -MRI Lumbar Spine:No evidence for discitis. No epidural abscess. Mild edema and enhancement within the paraspinal musculature which is similar to previous MRI. This is of doubtful significance. Moderate multilevel facet arthrosis and mild multilevel degenerative disc disease. -Imaging studies unchanged from prior -PT OT Abnormal urinalysis--likely contaminated sample Follow-up urine culture Blood culture no growth to date Empirically received Rocephin in ED Consider starting IV antibiotics if develops fever again Pancytopenia Chronic Follows with Dr. Tono Sanchez hematology Secondary to cirrhosis, splenomegaly Gets frequent transfusions including IV Venofer Monitor CBC Restrictive lung disease THAD CPAP at HS Mood disorder At baseline Continue home medication NAFLD cirrhosis No overt decompensation Continue home diuretics DM II Recent Hb A1c of 7.14 June 2021 Continue insulin therapy Monitor BGs Hypothyroidism Continue levothyroxine Cerebral palsy As per records Possible functional disability Morbid obesity BMI 57 H/O Asthma Nebs PRN DVT Px: SCDs Re: Pancytopenia Admission and Anticipated Discharge Date Admission Date: June 30, 2021 Subjective Patient is seen and examined at bedside States having chronic lower back pain Denies any chest pain, shortness of breath, dizziness, nausea, abdominal pain Discussed with patient's family over the phone Offers no other complaints Review of Systems Review of Systems: All systems reviewed & are unremarkable except as noted in Subjective Physical Exam Physical Exam: Physical Exam: Vitals signs as noted above General Appearance:Morbidly obese, no apparent distress Head: normocephalic, Atraumatic Eyes: normal inspection, EOMI Neck: supple, Trachea midline Respiratory/Chest: Normal breath sounds, CTA Cardiovascular: S1, S2, No murmur Abdomen/GI:Soft, Non tender, Bowel sounds present Extremities/Musculoskeletal:normal inspection, B/L LE edema Neurologic/Psych:AAOX3, grossly no focal neurological deficits Skin: normal color, warm Results & Data Results & Data ([facility]) Vital Signs (Past 12 Hours) Vital Signs Temp Pulse Pulse Resp BP Pulse Ox 07/01/21 16:14 36.5 C 59 L 17 109/71 90 07/01/21 09:45 58 L 125/74 07/01/21 07:11 36.5 C 60 17 102/67 95 Laboratory Results Short CBC 07/01/21 Range/Units 06:32 WBC 1.78 L (4.8-10.8) K/uL Hgb 7.9 L (12.0-16.0) g/dL Hct 25.9 L (37-47) % Plt Count 73 L (130-400) K/uL BMP 07/01/21 06:32 Sodium 144 Potassium 3.7 Chloride 114 H Carbon Dioxide 25 BUN 21 H Creatinine 0.64 Glucose 111 H Calcium 8.8 Cardiac Enzymes 06/30/21 Range/Units 18:10 Total Creatine Kinase 172 (26-192) U/L Liver Function 07/01/21 Range/Units 06:32 Total Bilirubin 0.7 (0.2-1) mg/dl AST 35 (15-37) U/L ALT 31 (12-78) U/L Alkaline Phosphatase 108 (45-117) U/L Albumin 2.6 L (3.4-5.0) gm/dl Urine 07/01/21 Range/Units 12:30 Urine Color Dark Yellow Urine Appearance Cloudy A (Clear) Urine pH 5.5 (4.5-7.5) Ur Specific [place] 1.034 H (1.000-1.030) Urine Protein Negative (Negative) Urine Glucose (UA) Negative (Negative) (1) Back pain Back pain laterality: unspecified Back pain location: low back pain Chronicity: chronic Sciatica presence: without sciatica Qualified Code(s): M54.50 - Low back pain, unspecified; G89.29 - Other chronic pain
[2021-07-01] MEDS: ATORVASTATIN 40 MG TAB PO SCH (21:42)
[2021-07-01] MEDS: traZODone HCL 50 MG TAB PO SCH (21:44)
[2021-07-01] MEDS ORDERED: LACTULOSE SYRUP 30 GM/45 ML UDP PO STA (22:41)
[2021-07-01] MEDS: DOCUSATE SODIUM/SENNA 50/8.6MG TAB PO SCH (23:59)
[2021-07-02 04:57] LABS: Mean Corpuscular Hgb Conc 30.9 g/dL (32-36)
[2021-07-02 05:11] LABS: Hematocrit (blood only) 26.2 % (37-47); Hemoglobin 8.1 g/dL (12.0-16.0); Mean Corpuscular Volume 93.9 fL (80-100); RDW Coefficient of Variation 19.4 % (11.5-14.5); Red Blood Count 2.79 M/uL (4.2-5.4); White Blood Count 3.24 K/uL (4.8-10.8)
[2021-07-02 05:20] LABS: Calcium 8.4 mg/dl (8.5-10.1); Creatinine Clr Calc Pharmacy 87.2 ml/min; Est GFR (African American) 91.8 ml/min; Est GFR (Non-African American) 79.2 ml/min; Potassium 3.9 mmol/L (3.5-5.1)
[2021-07-02] MEDS: LINACLOTIDE 145 MCG CAPSULE PO SCH (05:28)
[2021-07-02] MEDS: LEVOTHYROXINE SODIUM 175 MCG TABLET PO SCH (05:28)
[2021-07-02 06:05] LABS: Platelet Count 64 K/uL (130-400)
[2021-07-02 06:08] LABS: Basophils # (auto) 0.02 K/uL (0-0.2); Basophils % (auto) 0.6 %; Eosinophils # (auto) 0.13 K/uL (0-0.5); Giant Platelets 1+; Immature Granulocytes # (auto) 0.04 K/uL (0.00-0.02); Immature Granulocytes % (auto) 1.2 %; Lymphocytes # (auto) 0.61 K/uL (1.2-3.4); Lymphocytes % (auto) 18.8 %; Monocytes # (auto) 0.33 K/uL (0.11-0.59); Monocytes % (auto) 10.2 %; Neutrophils # (auto) 2.11 K/uL (1.4-6.5); Neutrophils % (auto) 65.2 %; Ovalocytes 1+; Platelet Estimate Decreased (Normal); Tear Drop Cells 1+
[2021-07-02] MEDS ORDERED: FUROSEMIDE 20 MG TAB PO SCH (09:00)
[2021-07-02] MEDS ORDERED: SPIRONOLACTONE 25 MG TAB PO SCH (09:00)
[2021-07-02] MEDS: FLUTICASONE PROPIONATE NA SPR 16 GM BTL SCH (09:03)
[2021-07-02] MEDS: FLUTICASONE/VILANTEROL 200/25MCG 14 PUFFS/INHALER INH SCH (09:03)
[2021-07-02] MEDS: OXYBUTYNIN CHLORIDE 5 MG TAB PO SCH (09:04)
[2021-07-02] MEDS: ESCITALOPRAM OXALATE 20 MG TAB PO SCH (09:04)
[2021-07-02] MEDS: ASPIRIN 81 MG ECTAB PO SCH (09:05)
[2021-07-02] MEDS: PANTOprazole 40 MG TAB PO SCH (09:05)
[2021-07-02] MEDS: DOCUSATE SODIUM 100 MG CAP PO SCH (09:06)
[2021-07-02] MEDS: DOCUSATE SODIUM/SENNA 50/8.6MG TAB PO SCH (09:06)
[2021-07-02] MEDS: GABAPENTIN 300 MG CAP PO SCH ×2 (09:07→13:26)
[2021-07-02] MEDS: TAMSULOSIN HCL 0.4 MG CAP PO SCH (09:08)
[2021-07-02] MEDS: ISOSORBIDE MONO EXTENDED REL 30 MG TABCR PO SCH (09:13)
[2021-07-02] MEDS: INSULIN GLARGINE SOLOSTAR 100 UNITS/ML 3 ML PEN SC SCH (09:14)
[2021-07-02] MEDS: INSULIN ASPART 100 UNITS/ML 3 ML PEN SC SCH ×2 (09:15→13:25)
--- NOTE | 2021-07-02 13:22 | Hospitalist Progress Note ---
Date of Service July 02, 2021 Assessment & Plan (1) Back pain: Plan: Chronic back pain H/O fibromyalgia -MRI Lumbar Spine:No evidence for discitis. No epidural abscess. Mild edema and enhancement within the paraspinal musculature which is similar to previous MRI. This is of doubtful significance. Moderate multilevel facet arthrosis and mild multilevel degenerative disc disease. -Imaging studies unchanged from prior Wheelchair-bound at baseline Denies any pain currently Abnormal urinalysis--likely contaminated sample Urine culture: No growth Blood culture no growth to date Empirically received Rocephin in ED Indication for antibiotics currently Pancytopenia Chronic Follows with Dr. Tono Sanchez hematology Secondary to cirrhosis, splenomegaly Gets frequent transfusions including IV Venofer Monitor CBC Stable Restrictive lung disease THAD CPAP at HS Mood disorder At baseline Continue home medication NAFLD cirrhosis No overt decompensation Continue home diuretics DM II Recent Hb A1c of 7.14 June 2021 Continue insulin therapy Monitor BGs Hypothyroidism Continue levothyroxine Cerebral palsy As per records Possible functional disability Morbid obesity BMI 57 H/O Asthma Nebs PRN DVT Px: SCDs Re: Pancytopenia Admission and Anticipated Discharge Date Admission Date: June 30, 2021 Subjective Patient is seen and examined at bedside States feeling well today Denies any significant back pain No new complaints Urine culture is negative Denies any chest pain, shortness of breath, dizziness, nausea, abdominal pain Review of Systems Review of Systems: All systems reviewed & are unremarkable except as noted in Subjective Physical Exam Physical Exam: Physical Exam: Vitals signs as noted above General Appearance:Morbidly obese, no apparent distress Head: normocephalic, Atraumatic Eyes: normal inspection, EOMI Neck: supple, Trachea midline Respiratory/Chest: Normal breath sounds, CTA Cardiovascular: S1, S2, No murmur Abdomen/GI:Soft, Non tender, Bowel sounds present Extremities/Musculoskeletal:normal inspection, B/L LE edema Neurologic/Psych:AAOX3, grossly no focal neurological deficits Skin: normal color, warm Results & Data Results & Data ([facility]) Vital Signs (Past 12 Hours) Vital Signs Temp Pulse Pulse Resp BP Pulse Ox 07/02/21 09:12 82 108/67 07/02/21 07:24 37.1 C 72 16 118/69 95 07/02/21 02:52 74 20 95 Laboratory Results Short CBC 07/02/21 Range/Units 04:14 WBC 3.24 L (4.8-10.8) K/uL Hgb 8.1 L (12.0-16.0) g/dL Hct 26.2 L (37-47) % Plt Count 64 L (130-400) K/uL [facility] 07/02/21 04:14 Sodium 142 Potassium 3.9 Chloride 113 H Carbon Dioxide 27 BUN 16 Creatinine 0.78 Glucose 162 H Calcium 8.4 L (1) Back pain Back pain laterality: unspecified Back pain location: low back pain Chronicity: chronic Sciatica presence: without sciatica Qualified Code(s): M54.50 - Low back pain, unspecified; G89.29 - Other chronic pain
--- NOTE | 2021-07-02 13:33 | Discharge Summary ---
Date of Service July 02, 2021 Admission HPI Per Admitting Provider History obtained from the patient and records. Medical history significant for restrictive lung disease as per records, mood disorder, fibromyalgia, hypertension, hyperlipidemia, NAFLD cirrhosis, THAD on CPAP, hypothyroidism DM2 insulin requiring chronic pancytopenia (baseline hemoglobin 8-9), cerebral palsy as per records, recurrent UTIs, hx MRSA/VRE as per records. Recent confinement February 2020 for complicated UTI. CS grew Citrobacter. Patient discharged on cefdinir course. 06/26/21 Patient seen at the ER for right flank pain symptoms. Unremarkable imaging. Patient discharged on cefdinir course for possible UTI. 06/29/21 Patient called back to the ER with urine CS growing Rachelle species. Diflucan course prescribed. Patient seen at PCPs office today on follow-up visit. Still with back discomfort and feeling terrible. Unable to move around as much as home as per patient. Low back pain without radiation to the legs. No recollection of recent trauma. No chest pain, no S OB. Patient with fever chills. No unusual headache symptoms. Patient adamant about returning to ER as per outpatient provider note. IV Ceftriaxone administered at the ER. MEDICAL HISTORY: As above. SURGICAL HISTORY: She has had dental surgery, gynecologic section, hip surgery and tendon repair, bone debridement, vascular procedure. FAMILY HISTORY: Heart disease. Diabetes PERSONAL AND SOCIAL HISTORY: Nonsmoker. No chronic intake of alcoholic beverages, disabled. Admission Exam Per Admitting Provider Physical Exam Physical Exam: GENERAL: uncomfortable, slightly anxious, obese, no respiratory distress SKIN: Pallor warm HEENT: Pale palpebral conjunctivae, no ptosis, dry buccal mucosa NECK : Supple, short neck, no tenderness CHEST : Decreased breath sounds , no tenderness HEART : RRR, no obvious murmurs ABDOMEN: Some distention, nontender BACK : Low back tenderness, limited leg raises (chronic as per patient) EXTREMITIES : Bilateral LE swelling, no LE tenderness, no other conspicuous deformities noted NEUROLOGIC : Coherent, no facial asymmetry, gait and stance not assessed Principal Diagnosis Chronic Lower back pain Pancytopenia--Chronic Discharge Data Allergies Allergy/AdvReac Type Severity Reaction Status Date / Time Penicillins Allergy Intermediate Rash Verified 06/30/21 16:02 adhesive tape Allergy Mild ITCHING Verified 06/30/21 16:02 perflutren AdvReac Intermediate LOWER BACK Verified 10/20/21 16:02 PAIN Consultations 06/30/21 19:07 ED Decision to Admit Stat Ordered Studies 06/30/21 16:28 CT abd pelvis wo con Stat 06/30/21 19:50 MR lumbar spine wo/w con Routine Hospital Course (1) Back pain: Chronic back pain H/O fibromyalgia -MRI Lumbar Spine:No evidence for discitis. No epidural abscess. Mild edema and enhancement within the paraspinal musculature which is similar to previous MRI. This is of doubtful significance. Moderate multilevel facet arthrosis and mild multilevel degenerative disc disease. -Imaging studies unchanged from prior Wheelchair-bound at baseline Denies any pain currently Abnormal urinalysis--likely contaminated sample Urine culture: No growth Blood culture no growth to date Empirically received Rocephin in ED Indication for antibiotics currently Pancytopenia Chronic Follows with Dr. Tono Sanchez hematology Secondary to cirrhosis, splenomegaly Gets frequent transfusions including IV Venofer Monitor CBC Stable Restrictive lung disease THAD CPAP at HS Mood disorder At baseline Continue home medication NAFLD cirrhosis No overt decompensation Continue home diuretics DM II Recent Hb A1c of 7.14 June 2021 Continue insulin therapy Monitor BGs Hypothyroidism Continue levothyroxine Cerebral palsy As per records Possible functional disability Morbid obesity BMI 57 H/O Asthma Nebs PRN DVT Px: SCDs Re: Pancytopenia Total Time Total Time Spent Total Time Spent (In Minutes): 36 minutes Discharge Plan Discharge Items Patient Disposition: Home - Self-Care Reason For Visit: BACK PAIN Discharge Diagnosis: Chronic Lower back pain Pancytopenia--Chronic Activity: Per Instructions section Exercise/Sports: Gradually increase as tolerated Non-emergency contact: Primary Care Provider Call non-emergency contact if: you have any medication questions, your symptoms worsen, your pain is concerning for you and you have a fever Follow-up/Referrals: Tono Sanchez MD [Surgeon] - (Date & Time 07/06/2021 3:15 PM Provider Tono Sanchez MD Department Hematology/Oncology [facility] ) Roel Evans DO [Primary Care Provider] - (Date & Time 07/12/2021 12:00 PM Provider Joel Jordan MD Department [facility] ) Diet: Carb Consistent or DM2 and Heart Healthy Addtl Attending Provider Instructions: Follow-up with your primary care physician Dr. Evans on 07/12/2021 12:00 PM Follow-up with your oncologist Dr. Sanchez on 07/06/2021 3:15 PM Seek immediate medical attention if your symptoms reoccur or worsen Please take all medications as instructed on discharge list below. Please call if you have any questions or problems. You can reach a [facility] hospitalist on duty at [facility] 24 hours a day by calling [phone] Pending Studies at Discharge: No Stand-Alone Forms: [facility], Smoking Cessation Medications and DC Order Prescriptions: Continued escitalopram oxalate [Lexapro] 20 mg tablet 20 mg PO DAILY RF: 0 fluticasone propionate [Flonase Allergy Relief] 50 mcg/actuation [place],Suspension 2 spray Intranasal QAM RF: 0 Centrum Silver 0.4-300-250 mg-mcg-mcg Tablet 1 tab PO QAM RF: 0 pantoprazole [Protonix] 20 mg tablet,delayed release (DR/EC) 40 mg PO BID RF: 0 albuterol sulfate [Ventolin HFA] 90 mcg/actuation Hfa Aerosol Inhaler 2 puff INHALATION Q4H PRN (Reason: Cough or Wheezing) RF: 0 oxybutynin chloride 5 mg tablet 5 mg PO BID RF: 0 nadolol [Corgard] 20 mg tablet 40 mg PO DAILY RF: 0 gabapentin [Neurontin] 300 mg Capsule See Rx Instructions .ROUTE .COMPLEX RF: 0 trazodone 50 mg Tablet 50 mg PO HS RF: 0 potassium chloride [K-Tab] 10 mEq Tablet Extended Release 10 meq PO QDL RF: 0 ascorbic acid (vitamin C) [Vitamin C] 500 mg Tablet 500 mg PO QAM RF: 0 furosemide [Lasix] 20 mg Tablet 20 mg PO QAM PRN (Reason: Edema) RF: 0 Lantus Solostar U-100 Insulin 100 unit/mL (3 mL) Insulin Pen 32 unit SUBCUT HS RF: 0 albuterol sulfate 2.5 mg /3 mL (0.083 %) solution for nebulization 2.5 mg inhalation Q6H PRN (Reason: Wheezing) RF: 0 levothyroxine [Synthroid] 175 mcg tablet 175 mcg PO DAILYBB RF: 0 atorvastatin [Lipitor] 80 mg tablet 80 mg PO HS RF: 0 isosorbide mononitrate 30 mg tablet extended release 24 hr 30 mg PO DAILY RF: 0 metformin 500 mg tablet extended release 24 hr 500 mg PO QDB RF: 0 insulin aspart U-100 [Novolog Flexpen U-100 Insulin] 100 unit/mL (3 mL) insulin pen 0 unit SUBCUT AC RF: 0 Linzess 290 mcg capsule 290 mcg PO DAILYBB RF: 0 aspirin [Aspirin Child] 81 mg Tablet,Chewable 81 mg PO DAILY RF: 0 Trulicity 4.5 mg/0.5 mL pen injector 4.5 mg SUBCUT WK RF: 0 cefdinir 300 mg capsule 300 mg PO BID 7 Days Qty: 14 RF: 0 cyclobenzaprine 10 mg Tablet 10 mg PO HS RF: 0 silver sulfadiazine [Silvadene] 1 % Cream 1 applic TOPICAL BID RF: 0 fluticasone propion-salmeterol [Advair Diskus] 250-50 mcg/dose Blister With Device 1 inh INHALATION BID RF: 0 ipratropium-albuterol [DuoNeb] 0.5 mg-3 mg(2.5 mg base)/3 mL Solution For Nebulization 3 ml INHALATION QID PRN (Reason: Shortness Of Breath) RF: 0 ibuprofen 800 mg Tablet 800 mg PO DAILY PRN (Reason: Pain) RF: 0 sennosides-docusate sodium [Senna with Docusate Sodium] 8.6-50 mg Tablet 1 tab-cap PO DAILY RF: 0 spironolactone 25 mg Tablet 50 mg PO DAILY RF: 0 lidocaine-prilocaine 2.5-2.5 % Cream 1 applic topical DIRECTED PRN (Reason: APPLY TO SKIN AROUND APORT PRIOR TO ACCESS.) RF: 0 tamsulosin [Flomax] 0.4 mg Capsule 0.4 mg PO DAILY RF: 0 nitroglycerin [Nitrostat] 0.4 mg Tablet, Sublingual 0.4 mg sublingual DIRECTED PRN (Reason: Chest Pain) RF: 0 docusate sodium 100 mg Capsule 100 mg PO DAILY RF: 0 nystatin 100,000 unit/gram Powder 1 applic TOPICAL TID RF: 0 cinnamon bark [Cinnamon] 500 mg Capsule 500 mg PO DAILY RF: 0 Discharge Orders: Discharge Order (Routine); Ordered 07/02/21 Ordered By: Que Dale Admission Data Admit Date/Time: 06/30/21 20:02 Attending Provider: Que Dale Admit Provider: Glen Huber Primary Care Provider: Roel Evans Other Providers: Glen Huber
== END 2021-07-02 16:33 | disposition home or self-care (01) ==
LOC: 3E 12:32 → ED 12:32 → 3E 21:25

== ENCOUNTER 2022-04-30 19:30 | Inpatient (IN) ==
--- NOTE | 2022-04-30 19:59 | Emergency Department Note ---
History of Present Illness General Chief complaint: Dizziness Stated complaint: COLD, DIZZINESS Time Seen by Provider: 04/30/22 19:40 History of Present Illness 66-year-old wheelchair-bound female due to cerebral palsy presents to the ED with a chief complaint of " I am cold". Symptoms started around 3 PM today. She also has had a cough for the past 2 days. She has had a recent exposure to a [id number] with COVID. She also has history of Thompson and hyperammonemia. The states that she was driving her wheelchair around slightly erratically today. The was worried about elevated ammonia levels. Denies nausea, vomiting or diarrhea. She has had her usual dose of lactulose today but later than usual. No headaches, shortness of breath or abdominal pains. No other complaints. Home Medications Medication Instructions Recorded Confirmed Type albuterol sulfate 2.5 mg/3 mL 2.5 mg inhalation DIRECTED PRN 04/30/22 04/30/22 History (0.083 %) solution for nebulization Shortness Of Breath Or Wheezing albuterol sulfate 5 mg/mL(0.5 %) 2.5 mg inhalation DIRECTED PRN 04/30/22 04/30/22 History solution for nebulization Shortness Of Breath Or Wheezing aspirin 81 mg chewable tablet 81 mg PO DAILY 04/30/22 04/30/22 History atorvastatin 80 mg tablet 80 mg PO DAILY 04/30/22 04/30/22 History benzonatate 100 mg capsule 100 mg PO TID PRN Cough 04/30/22 04/30/22 History budesonide-formoterol HFA 160 2 puff inhalation BID 04/30/22 04/30/22 History mcg-4.5 mcg/actuation aerosol inhaler dulaglutide 4.5 mg/0.5 mL 4.5 mg subcut .Q MON 04/30/22 04/30/22 History subcutaneous pen injector (Trulicity) escitalopram oxalate 20 mg tablet 20 mg PO DAILY 04/30/22 04/30/22 History fluticasone propionate 50 2 spray intranasal DAILY 04/30/22 04/30/22 History mcg/actuation nasal spray,suspension (Flonase Allergy Relief) furosemide 20 mg tablet 20 mg PO DAILY PRN .LOWER 04/30/22 04/30/22 History EXTREMITY SWELLING gabapentin 300 mg capsule 300 mg PO BID 04/30/22 04/30/22 History gabapentin 300 mg capsule 600 mg PO QPM 04/30/22 04/30/22 History insulin aspart U-100 100 unit/mL See Rx Instructions .Route .COMPLEX 04/30/22 04/30/22 History (3 mL) subcutaneous pen (Novolog Flexpen U-100 Insulin aspart) insulin glargine 100 unit/mL (3 40 unit subcut HS 04/30/22 04/30/22 History mL) subcutaneous pen (Lantus Solostar U-100 Insulin) isosorbide mononitrate 30 mg 30 mg PO DAILY 04/30/22 04/30/22 History tablet,extended release 24 hr lactulose 10 gram/15 mL oral 30 ml PO TID 04/30/22 04/30/22 History solution levothyroxine 175 mcg tablet 175 mcg PO DAILY 04/30/22 04/30/22 History lidocaine-prilocaine 2.5 %-2.5 % 1 applic topical DIRECTED PRN 04/30/22 04/30/22 History topical cream MEDI-PORT linaclotide 290 mcg capsule 290 mcg PO QAM 04/30/22 04/30/22 History (Linzess) nadolol 40 mg tablet 40 mg PO DAILY 04/30/22 04/30/22 History oxybutynin chloride 5 mg tablet 5 mg PO BID 04/30/22 04/30/22 History pantoprazole 20 mg tablet,delayed 40 mg PO BID 04/30/22 04/30/22 History release potassium chloride 10 mEq 10 meq PO DAILY 04/30/22 04/30/22 History tablet,extended release silver sulfadiazine 1 % topical 1 applic topical DAILY apply to 04/30/22 04/30/22 History cream wound spironolactone 25 mg tablet 50 mg PO DAILY 04/30/22 04/30/22 History tramadol 50 mg tablet 50 mg PO BID PRN Severe Pain 04/30/22 04/30/22 History (Scale Score 7-10) trazodone 50 mg tablet 50 mg PO HS 04/30/22 04/30/22 History Allergies Allergy/AdvReac Type Severity Reaction Status Date / Time Penicillins Allergy Intermediate Rash Verified 08/10/21 00:30 adhesive tape Allergy Mild ITCHING Verified 08/10/21 00:30 perflutren AdvReac Intermediate LOWER BACK Verified 08/10/21 00:30 PAIN Past Med/Surg History Medical History Ambulatory dysfunction Asthma DOES NOT USE INH. REPORTS USING NEB TREATMENTS BID. Bilateral lower extremity edema Cardiac murmur does not follow w/ cardio; echo 11/2017 [facility] Cerebral palsy Chronic back pain Chronic pain Dark stools Diplopia reports intermittent x 1-2 weeks. pt reports PCP aware and scheduled for brain MRI 03/11 at [facility]. 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 Major depressive disorder, recurrent, moderate Morbid obesity with BMI of 50.0-59.9, adult Obstructive sleep apnea CPAP + OXYGEN AT 2 LPM @ NIGHT On home oxygen therapy 2 LPM @ NIGHT + CPAP Osteoarthritis Pancreatic cyst Poor historian SOB (shortness of breath) on exertion Venous insufficiency Wheelchair bound Surgical History H/O wisdom tooth extraction History of Achilles tendon repair History of section History of colonoscopy History of dilatation and curettage History of esophagogastroduodenoscopy (EGD) EUS 02/22/2019 [facility] History of hip surgery History of strabismus surgery History of tooth extraction Family History Father Family history of diabetes mellitus Myocardial infarction, Onset Age: 61 Mother Myocardial infarction, Onset Age: 72 Sister Myocardial infarction Social History Smoking Status: Never smoker Second Hand Exposure: No; Hx Alcohol Use: No Hx Substance Use: No Preferred Language: Indonesian Communication Ability: sleeping. [employer] Required: No Beliefs That Will Affect Care: None marital status: Current Living Situation: Family Current Living Situation Comment: Lives with , Sister and grandson Feels Safe at Home: Yes Assistive Devices: Mechanical Lift, Nebulizer, Oxygen - at Night and Wheelchair Review of Systems A total of 10 systems reviewed and were otherwise negative Physical Exam Vital Signs Vital Signs - 24 hr 04/30/22 19:32 04/30/22 20:16 04/30/22 20:16 Temperature 37.1 C Temperature Source Temporal Artery Scan Pulse Rate 86 83 Pulse Rate [Apical] Pulse Rhythm Regular Pulse Rhythm [Apical] Pulse Strength [Apical] Respiratory Rate 22 18 Respiratory Effort / Characteristics Respiratory Depth Normal Respiratory Pattern Blood Pressure 115/68 Blood Pressure [Right Arm] Blood Pressure Mean 83 Blood Pressure Mean [Right Arm] Blood Pressure Position [Right Arm] Pulse Oximetry 92 95 95 Oxygen Delivery Method Room Air Room Air Room Air Oxygen Flow Rate 0 Sepsis Recent Fever Within 48 Hours No Sepsis New/Unexplained Change in Mental Status N/A Sepsis Action Taken by Nursing No Action Required 04/30/22 20:43 Temperature 38.7 C H Temperature Source Oral Pulse Rate Pulse Rate [Apical] 83 Pulse Rhythm Pulse Rhythm [Apical] Regular Pulse Strength [Apical] Normal Respiratory Rate 18 Respiratory Effort / Characteristics Non-Labored Spontaneous Respiratory Depth Normal Respiratory Pattern Regular Blood Pressure Blood Pressure [Right Arm] 105/74 Blood Pressure Mean Blood Pressure Mean [Right Arm] 84 Blood Pressure Position [Right Arm] Lying Pulse Oximetry 95 Oxygen Delivery Method Room Air Oxygen Flow Rate Sepsis Recent Fever Within 48 Hours Sepsis New/Unexplained Change in Mental Status Sepsis Action Taken by Nursing CONSTITUTIONAL/VITAL SIGNS: Reviewed / noted above. GENERAL: Non-toxic in appearance. Wheelchair-bound. INTEGUMENTARY: Warm, dry, and [place]. HEAD: Normocephalic. EYES: without scleral icterus or trauma. ENT/OROPHARYNX: clear and moist. LYMPHADENOPATHY/NECK: Is supple without lymphadenopathy or meningismus. RESPIRATORY: Clear to auscultation bilaterally. No increased work of breathing. CARDIOVASCULAR: Regular rate and rhythm. GI/ABDOMEN: Soft and nontender. EXTREMITIES: Warm and well perfused. BACK: No CVA tenderness. NEUROLOGICAL: Awake and alert. Answers questions. PSYCHIATRIC: normal affect. MUSCULOSKELETAL: Normally developed with good muscle tone. TRIAGE NURSING DOCUMENTATION REVIEWED. Course Administered Medications Discontinued Medications Sodium Chloride (Nss) 500 mls @ 999 mls/hr IV .Q31M KRISTY Stop: 04/30/22 20:30 Last Infusion: 04/30/22 21:44 Dose: 0 mls/hr Documented By: Admin: 04/30/22 21:11 Dose: 999 mls/hr Documented By: ARLEEN Cefepime HCl (Maxipime) 2,000 mg in 20 mls @ 5 mls/min IV NOW STA; Protocol Stop: 04/30/22 22:08 Last Admin: 04/30/22 22:45 Dose: 5 mls/min Documented By: ARLEEN Medical Decision Making Differential Diagnosis Differential includes acute coronary syndrome, myocardial infarction, CVA, TIA, anemia, infection, pneumonia, UTI, pyelonephritis, poor nutrition, dehydration, electrolyte disturbance,hypoglycemia. Medical Records Attestation: I reviewed the patient's medical records. Home Medications Current Medication List: was personally reviewed by me Laboratory Data Attestation: I reviewed the patient's lab results. Result diagrams: 04/30/22 20:33 04/30/22 20:33 Lab Results 04/30/22 04/30/22 04/30/22 Range/Units 20:12 20:33 20:33 WBC 2.08 L (4.8-10.8) K/ul RBC 2.79 L (3.93-5.22) M/uL Hgb 10.3 L (12.0-16.0) g/dl Hct 30.6 L (34.1-44.9) % MCV 109.7 H (80.0-100.0) fL MCH 36.9 H (25.0-34.0) pg MCHC 33.7 (32.0-36.0) g/dL RDW Std Deviation 72.8 H (36.4-46.3) fL RDW Coeff of Bradley 18.0 H (11.5-14.5) % Plt Count 46 L (130-400) K/uL MPV 12.8 H (9.4-12.3) fL Immature Gran % (Auto) 0.5 % Neut % (Auto) 63.4 % Lymph % (Auto) 14.4 % Cloud % (Auto) 15.4 % Eos % (Auto) 5.3 % Baso % (Auto) 1.0 % Neut # (Auto) 1.32 L (1.4-6.5) K/uL Lymph # (Auto) 0.30 L (1.2-3.4) K/uL Cloud # (Auto) 0.32 (0.24-0.82) K/uL Eos # (Auto) 0.11 (0-0.50) K/uL Baso # (Auto) 0.02 (0-0.2) K/uL Immature Gran # (Auto) 0.01 (0.00-0.02) K/uL Sodium 135 L (136-145) mmol/L Potassium 4.1 (3.5-5.1) mmol/L Chloride 106 (98-107) mmol/L Carbon Dioxide 23 (21-32) mmol/L Anion Gap 6 (3-11) BUN 14 (6-23) mg/dl Creatinine 0.79 (0.6-1.2) mg/dl Est Cr Clr Drug Dosing 79.7 ml/min Est GFR ( Amer) 90.4 ml/min Est GFR (Non-Af Amer) 78.0 ml/min BUN/Creatinine Ratio 17.7 (10-20) Glucose 169 H (70-99(Fasting)) mg/dl Calcium 8.8 (8.5-10.1) mg/dl Total Bilirubin 2.1 H (0.2-1.0) mg/dl AST 80 H (13-39) U/L ALT 38 (7-52) U/L Alkaline Phosphatase 94 (34-104) U/L Ammonia (18-72) umol/L Total Creatine Kinase 239 H (26-192) U/L Total Protein 6.2 (6.0-8.3) gm/dl Albumin 3.1 L (3.4-5.0) gm/dl Globulin 3.1 (2.5-4.0) gm/dl Albumin/Globulin Ratio 1.0 (0.9-2) Urine Color Yellow Urine Appearance Cloudy A (Clear) Urine pH 5.0 (4.5-7.5) Ur Specific Reading 1.014 (1.000-1.030) Urine Protein 1+ H (Negative) Urine Glucose (UA) Negative (Negative) Urine Ketones Negative (Negative) Urine Blood 3+ H (Negative) Urine Nitrite Positive A (Negative) Urine Bilirubin Negative (Negative) Urine Urobilinogen Negative (Negative) Ur Leukocyte Esterase 2+ H (Negative) Urine WBC (Auto) >30 H (0-5) /hpf Urine RBC (Auto) >30 H (0-4) /hpf U Hyaline Cast (Auto) 1-5 (0-5) /lpf U Epithel Cells (Auto) >30 H (0-5) /lpf Urine Bacteria (Auto) 4+ H (Negative) Urine Yeast Not Reportable SARS-CoV-2, RNA, NAAT (NEGATIVE) 04/30/22 04/30/22 Range/Units 20:33 Unknown WBC (4.8-10.8) K/ul RBC (3.93-5.22) M/uL Hgb (12.0-16.0) g/dl Hct (34.1-44.9) % MCV (80.0-100.0) fL MCH (25.0-34.0) pg MCHC (32.0-36.0) g/dL RDW Std Deviation (36.4-46.3) fL RDW Coeff of Bradley (11.5-14.5) % Plt Count (130-400) K/uL MPV (9.4-12.3) fL Immature Gran % (Auto) % Neut % (Auto) % Lymph % (Auto) % Cloud % (Auto) % Eos % (Auto) % Baso % (Auto) % Neut # (Auto) (1.4-6.5) K/uL Lymph # (Auto) (1.2-3.4) K/uL Cloud # (Auto) (0.24-0.82) K/uL Eos # (Auto) (0-0.50) K/uL Baso # (Auto) (0-0.2) K/uL Immature Gran # (Auto) (0.00-0.02) K/uL Sodium (136-145) mmol/L Potassium (3.5-5.1) mmol/L Chloride (98-107) mmol/L Carbon Dioxide (21-32) mmol/L Anion Gap (3-11) BUN (6-23) mg/dl Creatinine (0.6-1.2) mg/dl Est Cr Clr Drug Dosing ml/min Est GFR ( Amer) ml/min Est GFR (Non-Af Amer) ml/min BUN/Creatinine Ratio (10-20) Glucose (70-99(Fasting)) mg/dl Calcium (8.5-10.1) mg/dl Total Bilirubin (0.2-1.0) mg/dl AST (13-39) U/L ALT (7-52) U/L Alkaline Phosphatase (34-104) U/L Ammonia 125.0 H (18-72) umol/L Total Creatine Kinase (26-192) U/L Total Protein (6.0-8.3) gm/dl Albumin (3.4-5.0) gm/dl Globulin (2.5-4.0) gm/dl Albumin/Globulin Ratio (0.9-2) Urine Color Urine Appearance (Clear) Urine pH (4.5-7.5) Ur Specific Reading (1.000-1.030) Urine Protein (Negative) Urine Glucose (UA) (Negative) Urine Ketones (Negative) Urine Blood (Negative) Urine Nitrite (Negative) Urine Bilirubin (Negative) Urine Urobilinogen (Negative) Ur Leukocyte Esterase (Negative) Urine WBC (Auto) (0-5) /hpf Urine RBC (Auto) (0-4) /hpf U Hyaline Cast (Auto) (0-5) /lpf U Epithel Cells (Auto) (0-5) /lpf Urine Bacteria (Auto) (Negative) Urine Yeast SARS-CoV-2, RNA, NAAT POSITIVE A* (NEGATIVE) Imaging Data Radiologist's Impression: Chest X-Ray 04/30/22 19:51 SINGLE VIEW CHEST CLINICAL HISTORY: Generalized weakness. FINDINGS: An AP, portable, upright chest radiograph is compared to study dated 12/18/2021. Correlation is made with chest CT dated 07/06/2021. The examination is degraded by portable technique and apical lordotic positioning. A right subclavian central venous infusion port is unchanged in position. The heart is enlarged. The pulmonary vasculature is noncongested. Chronic interstitial thickening is similar to previous. Scarring/atelectasis is noted at the lung bases. The lungs and pleural spaces are otherwise clear. No pneumothorax is seen. The skeletal structures are osteopenic. The bony thorax is grossly intact. IMPRESSION: Cardiomegaly with no active disease in the chest. ACT 112: Negative or not required by law. Electronically signed by: Selvin Barroso M.D. 04/30/2022 8:42 PM ECG Data Attestation: I personally reviewed and interpreted this ECG as follows: Additional Comments: Twelve-lead EKG: Per my interpretation shows a sinus rhythm at a rate of 84 with a first-degree AV block. No ST elevation. No PVCs. Normal QTC. MDM Narrative 66-year-old female presents with a cough for 2 days and a feeling of being cold. feels that the patient is a little "woozy". Recent COVID exposure. Concerns for COVID and hyperammonemia. Patient does also have a history of urinary tract infections. Twelve-lead EKG shows a normal sinus rhythm. A chest x-ray did not show acute disease. COVID test is positive. The patient's urinalysis appears to be infected. Her white blood cell count is low at 2.0. Hemoglobin is 10.3 which is also slightly low and her platelet count is low at 46. Glucose is 169. The patient's ammonia level is elevated at 125. The patient was treated with IV fluids, IV cefepime as well as lactulose p.o. She will be seen by the hospitalist for further evaluation and care. Impression & Plan UTI (urinary tract infection), COVID-19, Acute hepatic encephalopathy Discharge Plan Visit Data Chief Complaint: Dizziness Stated Complaint: COLD, DIZZINESS ED Provider: Alirio Miranda Discharge Problem: UTI (urinary tract infection), COVID-19, Acute hepatic encephalopathy Patient Disposition: Being Evaluated by Hospitalist Forms Stand Alone Forms: My [facility] Prescriptions Prescriptions: No Action silver sulfadiazine 1 % Cream 1 applic TOPICAL DAILY levothyroxine 175 mcg tablet 175 mcg PO DAILY atorvastatin 80 mg tablet 80 mg PO DAILY albuterol sulfate 2.5 mg /3 mL (0.083 %) Solution For Nebulization 2.5 mg INHALATION DIRECTED PRN (Reason: Shortness Of Breath Or Wheezing) isosorbide mononitrate 30 mg tablet extended release 24 hr 30 mg PO DAILY potassium chloride 10 mEq tablet extended release 10 meq PO DAILY spironolactone 25 mg tablet 50 mg PO DAILY pantoprazole 20 mg tablet,delayed release (DR/EC) 40 mg PO BID gabapentin 300 mg capsule 600 mg PO QPM gabapentin 300 mg capsule 300 mg PO BID Rx Instructions: Take 1 tab in am & mid day. May take extra dose in AM & MID DAY PRN. Total of 6 a day max. aspirin 81 mg tablet,chewable 81 mg PO DAILY furosemide 20 mg tablet 20 mg PO DAILY PRN (Reason: .LOWER EXTREMITY SWELLING) oxybutynin chloride 5 mg tablet 5 mg PO BID albuterol sulfate 5 mg/mL Solution For Nebulization 2.5 mg INHALATION DIRECTED PRN (Reason: Shortness Of Breath Or Wheezing) insulin aspart U-100 [Novolog Flexpen U-100 Insulin] 100 unit/mL (3 mL) insulin pen See Rx Instructions .ROUTE .COMPLEX Rx Instructions: 35 UNITS @ BREAKFAST, 39 UNITS @ BEFORE LUNCH, 45 UNITS BEFORE SUPPER lactulose 10 gram/15 mL solution 30 ml PO TID Rx Instructions: TITRATE DOSE FOR EFFECT OF 3-5 BM DAILY insulin glargine [Lantus Solostar U-100 Insulin] 100 unit/mL (3 mL) insulin pen 40 unit SUBCUT HS Trulicity 4.5 mg/0.5 mL pen injector 4.5 mg SUBCUT .Q MON trazodone 50 mg tablet 50 mg PO HS tramadol 50 mg Tablet 50 mg PO BID PRN (Reason: Severe Pain (Scale Score 7-10)) lidocaine-prilocaine 2.5-2.5 % Cream 1 applic topical DIRECTED PRN (Reason: MEDI-PORT) benzonatate 100 mg Capsule 100 mg PO TID PRN (Reason: Cough) nadolol 40 mg tablet 40 mg PO DAILY fluticasone propionate [Flonase Allergy Relief] 50 mcg/actuation [place],Suspension 2 spray INTRANASAL DAILY Rx Instructions: administer into each nostril escitalopram oxalate 20 mg tablet 20 mg PO DAILY budesonide-formoterol 160-4.5 mcg/actuation Hfa Aerosol Inhaler 2 puff INHALATION BID Linzess 290 mcg capsule 290 mcg PO QAM Referrals Referrals: Vanita Dunn MD [Primary Care Provider] -
[2022-04-30] MEDS ORDERED: SODIUM CHLORIDE 0.9% 500 ML IV SCH (20:00)
[2022-04-30 20:33] LABS: Appearance Urine Cloudy (Clear); Bacteria Urine Automated 4+ (Negative); Bilirubin Urine Negative (Negative); Blood Urine 3+ (Negative); Color Urine Yellow; Epithelial Cell Urine Auto >30 /lpf (0-5); Glucose Urine UA Negative (Negative); Ketones Urine Negative (Negative); Leukocyte Esterase Urine 2+ (Negative); Nitrite Urine Positive (Negative); Protein Urine 1+ (Negative); Specific Gravity Urine 1.014 (1.000-1.030); Urobilinogen Urine Negative (Negative); WBC Urine Automated >30 /hpf (0-5)
--- NOTE | 2022-04-30 20:44 | XRay Report ---
SINGLE VIEW CHEST CLINICAL HISTORY: Generalized weakness. FINDINGS: An AP, portable, upright chest radiograph is compared to study dated 12/18/2021. Correlation is made with chest CT dated 07/06/2021. The examination is degraded by portable technique and apical lordotic positioning. A right subclavian central venous infusion port is unchanged in position. The h eart is enlarged. The pulmonary vasculature is noncongested. Chronic interstitial thickening is simil ar to previous. Scarring/atelectasis is noted at the lung bases. The lungs and pleural spaces are oth erwise clear. No pneumothorax is seen. The skeletal structures are osteopenic. The bony thorax is saad ssly intact. IMPRESSION: Cardiomegaly with no active disease in the chest. ACT 112: Negative or not required by law. Electronically signed by: Selvin Barroso M.D. 04/30/2022 8:42 PM
[2022-04-30 21:03] LABS: RBC Urine Automated >30 /hpf (0-4)
[2022-04-30 21:34] LABS: Albumin Level 3.1 gm/dl (3.4-5.0); BUN Creatinine Ratio 17.7 (10-20); Bilirubin,Total 2.1 mg/dl (0.2-1.0); Calcium 8.8 mg/dl (8.5-10.1); Creatinine Clr Calc Pharmacy 79.7 ml/min; Est GFR (African American) 90.4 ml/min; Globulin 3.1 gm/dl (2.5-4.0); Potassium 4.1 mmol/L (3.5-5.1); Total Protein 6.2 gm/dl (6.0-8.3)
[2022-04-30] MEDS ORDERED: CEFEPIME 2,000 MG/20 ML VIAL IV STA (22:05)
[2022-04-30 22:38] LABS: Basophils # (auto) 0.02 K/uL (0-0.2); Eosinophils # (auto) 0.11 K/uL (0-0.50); Eosinophils % (auto) 5.3 %; Hematocrit (blood only) 30.6 % (34.1-44.9); Hemoglobin 10.3 g/dl (12.0-16.0); Immature Granulocytes # (auto) 0.01 K/uL (0.00-0.02); Immature Granulocytes % (auto) 0.5 %; Lymphocytes % (auto) 14.4 %; Mean Corpuscular Hemoglobin 36.9 pg (25.0-34.0); Mean Corpuscular Hgb Conc 33.7 g/dL (32.0-36.0); Mean Corpuscular Volume 109.7 fL (80.0-100.0); Mean Platelet Volume 12.8 fL (9.4-12.3); Monocytes # (auto) 0.32 K/uL (0.24-0.82); Monocytes % (auto) 15.4 %; Neutrophils # (auto) 1.32 K/uL (1.4-6.5); Neutrophils % (auto) 63.4 %; Platelet Count 46 K/uL (130-400); RDW Standard Deviation 72.8 fL (36.4-46.3); Red Blood Count 2.79 M/uL (3.93-5.22); White Blood Count 2.08 K/ul (4.8-10.8)
[2022-04-30] MEDS ORDERED: LACTULOSE SYRUP 30 GM/45 ML UDP PO STA (22:49)
[2022-05-01] MEDS ORDERED: LIDOCAINE/PRILOCAINE 2.5% EA CRM EXT PRN (02:45)
[2022-05-01] MEDS ORDERED: NON-FORMULARY MEDICATION (Albuterol Sulfate 5 mg/mL Solution For Nebulization) INH PRN (02:45)
[2022-05-01] MEDS ORDERED: ALBUTEROL 0.083% NEBU SOLN 3 ML VIAL INH PRN (02:45)
[2022-05-01] MEDS ORDERED: NITROGLYCERIN SL 0.4 MG/TAB TAB SL PRN (02:45)
[2022-05-01] MEDS ORDERED: BENZONATATE 100 MG CAPSULE PO PRN (02:45)
[2022-05-01] MEDS ORDERED: ONDANSETRON INJ 2 MG/ML 2 ML VIAL IV PRN (02:45)
[2022-05-01] MEDS ORDERED: FUROSEMIDE 20 MG TAB PO PRN (02:45)
[2022-05-01] MEDS ORDERED: CARBOHYDRATES FOR HYPOGLYCEMIA PO PRN (03:15)
[2022-05-01] MEDS ORDERED: DEXTROSE 50% 50 ML SYRINGE IV PRN (03:15)
[2022-05-01] MEDS ORDERED: GLUCAGON FOR INJ 1 MG VIAL IM PRN (03:15)
[2022-05-01] MEDS ORDERED: GLUCOSE 40% GEL 15 GM TUBE PO PRN (03:15)
[2022-05-01] MEDS ORDERED: GLUCOSE 10 TAB/TUBE PO PRN (03:15)
[2022-05-01 06:11] LABS: Hematocrit (blood only) 30.2 % (34.1-44.9); Hemoglobin 9.9 g/dl (12.0-16.0); White Blood Count 2.73 K/ul (4.8-10.8)
[2022-05-01] MEDS: LEVOTHYROXINE SODIUM 175 MCG TABLET PO SCH (06:28)
[2022-05-01 06:37] LABS: BUN Creatinine Ratio 17.1 (10-20); Calcium 8.6 mg/dl (8.5-10.1); Creatinine Clr Calc Pharmacy 76.3 ml/min; Est GFR (African American) 86.4 ml/min; Est GFR (Non-African American) 74.6 ml/min; Magnesium 1.7 mg/dl (1.7-2.4); Potassium 4.2 mmol/L (3.5-5.1)
[2022-05-01 06:47] LABS: Basophils # (auto) 0.02 K/uL (0-0.2); Basophils % (auto) 0.7 %; Echinocytes 1+; Eosinophils # (auto) 0.08 K/uL (0-0.50); Eosinophils % (auto) 2.9 %; Immature Granulocytes # (auto) 0.01 K/uL (0.00-0.02); Immature Granulocytes % (auto) 0.4 %; Lymphocytes # (auto) 0.59 K/uL (1.2-3.4); Lymphocytes % (auto) 21.6 %; Macrocytosis Present; Mean Corpuscular Hemoglobin 36.3 pg (25.0-34.0); Mean Corpuscular Hgb Conc 32.8 g/dL (32.0-36.0); Mean Corpuscular Volume 110.6 fL (80.0-100.0); Mean Platelet Volume 13.9 fL (9.4-12.3); Monocytes # (auto) 0.52 K/uL (0.24-0.82); Neutrophils # (auto) 1.51 K/uL (1.4-6.5); Neutrophils % (auto) 55.4 %; Ovalocytes 1+; Platelet Count 42 K/uL (130-400); Polychromasia 1+; RDW Coefficient of Variation 17.8 % (11.5-14.5); RDW Standard Deviation 72.7 fL (36.4-46.3); Red Blood Count 2.73 M/uL (3.93-5.22)
--- NOTE | 2022-05-01 06:51 | History and Physical Report ---
DATE OF ADMISSION: 05/01/2022. CHIEF COMPLAINT: Some mild confusion and not feeling well. HISTORY OF PRESENT ILLNESS: A 66-year-old female with a past medical history significant for type 2 diabetes, hyperlipidemia, hypothyroidism, restrictive lung disease, obstructive sleep apnea on CPAP, cirrhosis of liver, NG, portal hypertensive gastropathy, esophageal varices, venous insufficiency, chronic diastolic CHF, hypertension, morbid obesity, GERD, urinary incontinence due to immobility, venous stasis dermatitis of both lower extremities, fibromyalgia, wheelchair bound secondary to cerebral palsy, chronic pain syndrome, thrombocytopenia, iron deficiency anemia due to chronic blood loss, pancytopenia, depression, spinal stenosis, primary insomnia, impaired mobility and ADLs. Lives with her and [id number] and niece. Comes because of some mild confusion. As per , she is not able to operate her wheelchair and she seemed to be off, and she was feeling cold. She has cough since yesterday. One of the family members was diagnosed with COVID. The patient was brought in here, she was found to have ammonia of 125. Urinalysis positive, has temp spike in the ER and COVID came back positive. Currently, resting comfortably, hemodynamically stable. Can answers questions appropriately, seems to be doing okay. She felt some cold, has some cough, but denies any headache, has some mild neck pain. Has chronic back pain, and has some abdominal discomfort. Denies any chest pain, denies any shortness of breath. Appetite is okay. No difficulty swallowing. Has some mild runny nose, mild sore throat. No nausea, no vomiting. Normal bowel movements. Once in a while she has burning micturition. Also, as per the , she was having some skin ulcer in the right upper thigh in the posterior aspect and they are doing dressing at home. The patient has home health 5 times a week, someone is always with the patient as per the . ALLERGIES: PENICILLIN, ADHESIVE TAPE, PERFLUTREN. PAST MEDICAL HISTORY: As mentioned above. PAST SURGICAL HISTORY: Debridement of skin, right sided , colonoscopy, dental surgery, dilatation and curettage, EGD, hysteroscopy with biopsy, insertion of intrauterine device, pelvic and hip joint surgery as teenager, removal of loop electrode surgery, Repair/Graft Achilles tendon. MEDICATIONS: The patient is on albuterol 2 puffs inhalation p.r.n., albuterol nebulization p.r.n., aspirin 81 mg p.o. daily, atorvastatin 80 mg p.o. daily, benzonatate 100 mg p.o. t.i.d. p.r.n., Symbicort 2 puffs inhalation b.i.d., Trulicity 4.5 mg subcutaneous on Monday, Lexapro 20 mg p.o. daily, Flonase 2 sprays intranasal daily, Lasix 20 mg daily p.r.n., gabapentin 600 mg p.o. p.m., 300 mg p.o. b.i.d., NovoLog FlexPen as directed, Lantus 40 units subcutaneously at bedtime, isosorbide-mononitrate 30 mg p.o. daily, lactulose 30 mL p.o. t.i.d., levothyroxine 175 mcg p.o. daily, lidocaine p.r.n., Linzess 290 mcg p.o. a.m., nadolol 40 mg p.o. daily, oxybutynin 5 mg p.o. b.i.d., Protonix 40 mg p.o. b.i.d., potassium chloride 10 mEq p.o. daily, sulfasalazine topical daily apply to the wound, spironolactone 50 mg p.o. daily, tramadol 50 mg p.o. b.i.d. p.r.n., trazodone 50 mg p.o. at bedtime. FAMILY HISTORY: Significant for father has diabetes, of [place] at age of 61, mother of [place] at age 72. Sister had [place] at age of 46, she has hypertension. SOCIAL HISTORY: , lives with her and [id number]. No smoking, alcohol rare, no drug use. REVIEW OF SYSTEMS: As per HPI. Rest of review of systems negative. PHYSICAL EXAMINATION: GENERAL: The patient is morbidly obese, not in acute distress currently. VITAL SIGNS: Temperature 38.7, pulse 88, respiratory rate 20, blood pressure 100/56, oxygen 94% on room air. HEENT: Pupils equal, round and reactive to light. Oral mucosa moist. NECK: No JVD. No neck masses. CARDIOVASCULAR: S1 and S2 heard. Regular rate and rhythm. No murmur, no gallop. RESPIRATORY SYSTEM: Normal AP diameter. No accessory muscle use. No wheezing, no crackles. ABDOMEN: Soft, bowel sounds present. Mild abdominal discomfort, no guarding, no rigidity, no distention. CENTRAL NERVOUS SYSTEM: Alert, awake, and oriented. No facial droop. Speech is okay. Insight is okay. Moves extremities. EXTREMITIES: Bilateral lower extremity chronic edema present, no erythema seen. SKIN: Stage II skin ulcer seen in the right upper thigh in posterior aspect. No obvious drainage seen. LABORATORY DATA: WBC 2, hemoglobin 10.3, hematocrit 30.6, platelets 46. Sodium 135, potassium 4.1, chloride 106, bicarbonate 23, BUN 14, creatinine 0.7, serum glucose 169, calcium 8.8, total bilirubin 2.1, AST 80, ALT 38, alkaline phosphatase 94. Ammonia level was 125. Urinalysis positive +2 leukocyte esterase, +4 bacteria. SARS-CoV-2 rapid test positive. IMAGING DATA: Chest x-ray, no acute findings. EKG: Sinus rhythm, first-degree AV block at a rate of 84, no acute ST changes seen. ASSESSMENT AND PLAN: This 66-year-old female presents with mild confusion and found to have COVID and urinary tract infection. 1. Hepatic encephalopathy , ammonia level is 125. Getting lactulose. Follow the repeat ammonia level in a.m. and consult gastrointestinal in the a.m. 2. COVID. The patient is vaccinated, boosted twice, saturating okay. Chest x- ray unremarkable. We will monitor. Could be contributing for some confusion. 3. Urinary tract infection. Also will contributing for her encephalopathy, empirically started on cefepime, we will follow the cultures. 4. Pressure ulcer, stage II skin ulcer on the right upper thigh in posterior aspect; antibiotic as above and wound care consult. 5. Morbid obesity, obstructive sleep apnea, BIPAP at bedtime. 6. Liver cirrhosis, nonalcoholic steatohepatitis. Continue home medication of lactulose, nadolol and diuretics. 7. Chronic diastolic congestive heart failure: Diuretics as above. We will monitor for any volume overload. 8. Diabetes. Continue home Lantus 40 units at bedtime and insulin sliding scale. Follow the blood sugars, follow HbA1c levels. 9. Hypothyroidism. Continue Synthroid. 10. Hyperlipidemia. Continue statin. 11. Restrictive lung disease. Continue home inhalers. 12. Esophageal varices, on nadolol. 13. Hypertension. Continue home medication of diuretics isosorbide- mononitrate, nadolol. We will monitor the blood pressure. 14. Gastroesophageal reflux disease. On Protonix. 15. History of cerebral palsy, wheelchair bound. 16. Chronic pain, on gabapentin. 17. Hyperlipidemia. On statin. 18. Pancytopenia from liver cirrhosis. We will follow the labs, platelets in 40's 19. Deep venous thrombosis prophylaxis: Sequential compression devices as patient has thrombocytopenia. DISPOSITION: Admit to tele floor. Level I full code. Social service to help with discharge planning. Job ID: [id number] [facility]
[2022-05-01] MEDS: FLUTICASONE/VILANTEROL 200/25MCG 14 PUFFS/INHALER INH SCH (09:01)
[2022-05-01] MEDS: ISOSORBIDE MONO EXTENDED REL 30 MG TABCR PO SCH (09:04)
[2022-05-01] MEDS: GABAPENTIN 300 MG CAP PO SCH ×2 (09:04→14:37)
[2022-05-01] MEDS: ATORVASTATIN 40 MG TAB PO SCH (09:04)
[2022-05-01] MEDS: ASPIRIN 81 MG ECTAB PO SCH (09:05)
[2022-05-01] MEDS: LINACLOTIDE 145 MCG CAPSULE PO SCH (09:05)
[2022-05-01] MEDS: nadoloL 40 MG TAB PO SCH (09:05)
[2022-05-01] MEDS: PANTOprazole 40 MG TAB PO SCH ×2 (09:05→21:06)
[2022-05-01] MEDS: OXYBUTYNIN CHLORIDE 5 MG TAB PO SCH ×2 (09:05→21:06)
[2022-05-01] MEDS: POTASSIUM CHLORIDE 10 MEQ TABCR PO SCH (09:06)
[2022-05-01] MEDS: ESCITALOPRAM OXALATE 20 MG TAB PO SCH (09:06)
[2022-05-01] MEDS: SPIRONOLACTONE 25 MG TAB PO SCH (09:07)
[2022-05-01] MEDS: FLUTICASONE PROPIONATE NA SPR 16 GM BTL NAE SCH (09:10)
[2022-05-01] MEDS: ACETAMINOPHEN 325 MG TAB PO PRN ×2 (09:11→17:10)
[2022-05-01] MEDS: CEFEPIME 2,000 MG in SYRINGE 0 ML IV SCH ×2 (09:12→21:04)
[2022-05-01] MEDS: SILVER SULFADIAZINE 1% CR 50 GM JAR TOP SCH (09:14)
[2022-05-01] MEDS: LACTULOSE SYRUP 30 GM/45 ML UDP PO SCH ×3 (09:15→21:07)
[2022-05-01] MEDS: INSULIN ASPART PER UNIT SC SCH ×4 (09:28→21:10)
--- NOTE | 2022-05-01 11:17 | Gastrointestinal Consultation ---
Date of Consultation May 01, 2022 Assessment & Plan (1) Increased ammonia level: (2) Cirrhosis: Currently compensated. Her ammonia level is elevated but she is not in hepatic encephalopathy. Can keep on low dose Lactulose. Follow up as OP in Hepatology clinic. Treatment of ongoing UTI and COVID per primary team. Recall GI if needed. History of Present Illness Reason for Consultation: Elevated Ammonia Attending Physician: Kourtney Hauser MD History of Present Illness 66 years old female patient with multipls medical comorbids including NG cirrhosis, presented with feeling cold and dizzy, found to have COVID infection, her Ammonia level was checked and was elevated however the patient is fully alert and oriented with no clinical signs to suggest ongoing hepatic encephalopathy. She feels fine, denies any abdominal pain, nausea or vomiting. Has fever spikes due to COVID and ongoing UTI. Allergies Allergy/AdvReac Type Severity Reaction Status Date / Time Penicillins Allergy Intermediate Rash Verified 08/10/21 00:30 adhesive tape Allergy Mild ITCHING Verified 08/10/21 00:30 perflutren AdvReac Intermediate LOWER BACK Verified 08/10/21 00:30 PAIN Home Medications Medication Instructions Recorded Confirmed Type albuterol sulfate 2.5 mg/3 mL 2.5 mg inhalation DIRECTED PRN 04/30/22 04/30/22 History (0.083 %) solution for nebulization Shortness Of Breath Or Wheezing albuterol sulfate 5 mg/mL(0.5 %) 2.5 mg inhalation DIRECTED PRN 04/30/22 04/30/22 History solution for nebulization Shortness Of Breath Or Wheezing aspirin 81 mg chewable tablet 81 mg PO DAILY 04/30/22 04/30/22 History atorvastatin 80 mg tablet 80 mg PO DAILY 04/30/22 04/30/22 History benzonatate 100 mg capsule 100 mg PO TID PRN Cough 04/30/22 04/30/22 History budesonide-formoterol HFA 160 2 puff inhalation BID 04/30/22 04/30/22 History mcg-4.5 mcg/actuation aerosol inhaler dulaglutide 4.5 mg/0.5 mL 4.5 mg subcut .Q MON 04/30/22 04/30/22 History subcutaneous pen injector (Trulicity) escitalopram oxalate 20 mg tablet 20 mg PO DAILY 04/30/22 04/30/22 History fluticasone propionate 50 2 spray intranasal DAILY 04/30/22 04/30/22 History mcg/actuation nasal spray,suspension (Flonase Allergy Relief) furosemide 20 mg tablet 20 mg PO DAILY PRN .LOWER 04/30/22 04/30/22 History EXTREMITY SWELLING gabapentin 300 mg capsule 300 mg PO BID 04/30/22 04/30/22 History gabapentin 300 mg capsule 600 mg PO QPM 04/30/22 04/30/22 History insulin aspart U-100 100 unit/mL See Rx Instructions .Route .COMPLEX 04/30/22 04/30/22 History (3 mL) subcutaneous pen (Novolog Flexpen U-100 Insulin aspart) insulin glargine 100 unit/mL (3 40 unit subcut HS 04/30/22 04/30/22 History mL) subcutaneous pen (Lantus Solostar U-100 Insulin) isosorbide mononitrate 30 mg 30 mg PO DAILY 04/30/22 04/30/22 History tablet,extended release 24 hr lactulose 10 gram/15 mL oral 30 ml PO TID 04/30/22 04/30/22 History solution levothyroxine 175 mcg tablet 175 mcg PO DAILY 04/30/22 04/30/22 History lidocaine-prilocaine 2.5 %-2.5 % 1 applic topical DIRECTED PRN 04/30/22 04/30/22 History topical cream MEDI-PORT linaclotide 290 mcg capsule 290 mcg PO QAM 04/30/22 04/30/22 History (Linzess) nadolol 40 mg tablet 40 mg PO DAILY 04/30/22 04/30/22 History oxybutynin chloride 5 mg tablet 5 mg PO BID 04/30/22 04/30/22 History pantoprazole 20 mg tablet,delayed 40 mg PO BID 04/30/22 04/30/22 History release potassium chloride 10 mEq 10 meq PO DAILY 04/30/22 04/30/22 History tablet,extended release silver sulfadiazine 1 % topical 1 applic topical DAILY apply to 04/30/22 04/30/22 History cream wound spironolactone 25 mg tablet 50 mg PO DAILY 04/30/22 04/30/22 History tramadol 50 mg tablet 50 mg PO BID PRN Severe Pain 04/30/22 04/30/22 History (Scale Score 7-10) trazodone 50 mg tablet 50 mg PO HS 04/30/22 04/30/22 History Patient History Medical History Ambulatory dysfunction Asthma DOES NOT USE INH. REPORTS USING NEB TREATMENTS BID. Bilateral lower extremity edema Cardiac murmur does not follow w/ cardio; echo 11/2017 [place] Cerebral palsy Chronic back pain Chronic pain Dark stools Diplopia reports intermittent x 1-2 weeks. pt reports PCP aware and scheduled for brain MRI 03/11 at [place]. 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 Major depressive disorder, recurrent, moderate Morbid obesity with BMI of 50.0-59.9, adult Obstructive sleep apnea CPAP + OXYGEN AT 2 LPM @ NIGHT On home oxygen therapy 2 LPM @ NIGHT + CPAP Osteoarthritis Pancreatic cyst Poor historian SOB (shortness of breath) on exertion Venous insufficiency Wheelchair bound Surgical History H/O wisdom tooth extraction History of Achilles tendon repair History of section History of colonoscopy History of dilatation and curettage History of esophagogastroduodenoscopy (EGD) EUS 02/22/2019 [facility] History of hip surgery History of strabismus surgery History of tooth extraction Family History Father Family history of diabetes mellitus Myocardial infarction, Onset Age: 61 Mother Myocardial infarction, Onset Age: 72 Sister Myocardial infarction Social History Smoking Status: Never smoker Second Hand Exposure: No; Do You Dip or Chew Tobacco: No; Tobacco Cessation Education Requested by Patient: No Hx Alcohol Use: No Hx Substance Use: No Preferred Language: Swedish Communication Ability: Effective 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 Cafeteria Required: No Beliefs That Will Affect Care: None marital status: Current Living Situation: Spouse and Family Current Living Situation Comment: Lives with , Sister and grandson Other Information That Helps Us Care for You: No Feels Safe at Home: Yes Safety Concerns: Feels Safe At This Time Assistive Devices: Glasses, Wheelchair and Other Assistive Devices Comment: patient has candace lift and ramp to enter her home Review of Systems Review of Systems: All systems reviewed & are unremarkable except as noted in HPI & below Physical Exam Constitutional: comfortable; no acute distress Respiratory: normal respiratory effort, lungs clear to auscultation Cardiovascular: RRR, no murmur, no edema Gastrointestinal (Abdomen): normal bowel sounds, soft, nontender, no hepatosplenomegaly Results & Data ([facility]) Vital Signs (Past 12 Hours) Vital Signs Temp Pulse Pulse Pulse Resp BP BP 05/01/22 10:50 76 05/01/22 08:20 37.6 C H 76 18 133/73 05/01/22 04:45 78 05/01/22 04:11 77 19 05/01/22 02:30 37.7 C H 80 20 128/72 05/01/22 03:00 05/01/22 02:06 38.7 C H 80 20 115/67 05/01/22 01:50 85 20 115/67 04/30/22 23:32 88 20 100/56 L Pulse Ox O2 Del Method O2 Flow Rate 05/01/22 10:50 05/01/22 08:20 96 Room Air 05/01/22 04:45 05/01/22 04:11 99 2 05/01/22 02:30 96 Room Air 05/01/22 03:00 Nasal Cannula 2 05/01/22 02:06 96 Room Air 05/01/22 01:50 96 Room Air 04/30/22 23:32 94 Room Air Laboratory Results Laboratory Results - last 24 hr 04/30/22 04/30/22 04/30/22 20:12 20:33 20:33 WBC 2.08 L RBC 2.79 L Hgb 10.3 L Hct 30.6 L MCV 109.7 H MCH 36.9 H MCHC 33.7 RDW Std Deviation 72.8 H RDW Coeff of [place] 18.0 H Plt Count 46 L MPV 12.8 H Immature Gran % (Auto) 0.5 Neut % (Auto) 63.4 Lymph % (Auto) 14.4 [place] % (Auto) 15.4 Eos % (Auto) 5.3 Baso % (Auto) 1.0 Neut # (Auto) 1.32 L Lymph # (Auto) 0.30 L [place] # (Auto) 0.32 Eos # (Auto) 0.11 Baso # (Auto) 0.02 Immature Gran # (Auto) 0.01 Polychromasia Macrocytosis Ovalocytes Echinocytes Sodium 135 L Potassium 4.1 Chloride 106 Carbon Dioxide 23 Anion Gap 6 BUN 14 Creatinine 0.79 Est Cr Clr Drug Dosing 79.7 Est GFR ( Amer) 90.4 Est GFR (Non-Af Amer) 78.0 BUN/Creatinine Ratio 17.7 Glucose 169 H POC Glucose Estimat Average Glucose Hemoglobin A1c Calcium 8.8 Magnesium Total Bilirubin 2.1 H AST 80 H ALT 38 Alkaline Phosphatase 94 Ammonia Total Creatine Kinase 239 H Total Protein 6.2 Albumin 3.1 L Globulin 3.1 Albumin/Globulin Ratio 1.0 Urine Color Yellow Urine Appearance Cloudy A Urine pH 5.0 Ur Specific [place] 1.014 Urine Protein 1+ H Urine Glucose (UA) Negative Urine Ketones Negative Urine Blood 3+ H Urine Nitrite Positive A Urine Bilirubin Negative Urine Urobilinogen Negative Ur Leukocyte Esterase 2+ H Urine WBC (Auto) >30 H Urine RBC (Auto) >30 H U Hyaline Cast (Auto) 1-5 U Epithel Cells (Auto) >30 H Urine Bacteria (Auto) 4+ H Urine Yeast Not Reportable SARS-CoV-2, RNA, NAAT 04/30/22 04/30/22 05/01/22 20:33 Unknown 02:43 WBC RBC Hgb Hct MCV MCH MCHC RDW Std Deviation RDW Coeff of [place] Plt Count MPV Immature Gran % (Auto) Neut % (Auto) Lymph % (Auto) [place] % (Auto) Eos % (Auto) Baso % (Auto) Neut # (Auto) Lymph # (Auto) [place] # (Auto) Eos # (Auto) Baso # (Auto) Immature Gran # (Auto) Polychromasia Macrocytosis Ovalocytes Echinocytes Sodium Potassium Chloride Carbon Dioxide Anion Gap BUN Creatinine Est Cr Clr Drug Dosing Est GFR ( Amer) Est GFR (Non-Af Amer) BUN/Creatinine Ratio Glucose POC Glucose 147 H Estimat Average Glucose Hemoglobin A1c Calcium Magnesium Total Bilirubin AST ALT Alkaline Phosphatase Ammonia 125.0 H Total Creatine Kinase Total Protein Albumin Globulin Albumin/Globulin Ratio Urine Color Urine Appearance Urine pH Ur Specific [place] Urine Protein Urine Glucose (UA) Urine Ketones Urine Blood Urine Nitrite Urine Bilirubin Urine Urobilinogen Ur Leukocyte Esterase Urine WBC (Auto) Urine RBC (Auto) U Hyaline Cast (Auto) U Epithel Cells (Auto) Urine Bacteria (Auto) Urine Yeast SARS-CoV-2, RNA, NAAT POSITIVE A* 05/01/22 05/01/22 05/01/22 05:48 05:48 05:48 WBC 2.73 L RBC 2.73 L Hgb 9.9 L Hct 30.2 L MCV 110.6 H MCH 36.3 H MCHC 32.8 RDW Std Deviation 72.7 H RDW Coeff of [place] 17.8 H Plt Count 42 L MPV 13.9 H Immature Gran % (Auto) 0.4 Neut % (Auto) 55.4 Lymph % (Auto) 21.6 [place] % (Auto) 19.0 Eos % (Auto) 2.9 Baso % (Auto) 0.7 Neut # (Auto) 1.51 Lymph # (Auto) 0.59 L [place] # (Auto) 0.52 Eos # (Auto) 0.08 Baso # (Auto) 0.02 Immature Gran # (Auto) 0.01 Polychromasia 1+ Macrocytosis Present Ovalocytes 1+ Echinocytes 1+ Sodium 137 Potassium 4.2 Chloride 107 Carbon Dioxide 24 Anion Gap 6 BUN 14 Creatinine 0.82 Est Cr Clr Drug Dosing 76.3 Est GFR ( Amer) 86.4 Est GFR (Non-Af Amer) 74.6 BUN/Creatinine Ratio 17.1 Glucose 143 H POC Glucose Estimat Average Glucose Pending Hemoglobin A1c Pending Calcium 8.6 Magnesium 1.7 Total Bilirubin AST ALT Alkaline Phosphatase Ammonia Total Creatine Kinase Total Protein Albumin Globulin Albumin/Globulin Ratio Urine Color Urine Appearance Urine pH Ur Specific [place] Urine Protein Urine Glucose (UA) Urine Ketones Urine Blood Urine Nitrite Urine Bilirubin Urine Urobilinogen Ur Leukocyte Esterase Urine WBC (Auto) Urine RBC (Auto) U Hyaline Cast (Auto) U Epithel Cells (Auto) Urine Bacteria (Auto) Urine Yeast SARS-CoV-2, RNA, NAAT 05/01/22 05/01/22 05/01/22 05:48 07:50 11:13 WBC RBC Hgb Hct MCV MCH MCHC RDW Std Deviation RDW Coeff of [place] Plt Count MPV Immature Gran % (Auto) Neut % (Auto) Lymph % (Auto) [place] % (Auto) Eos % (Auto) Baso % (Auto) Neut # (Auto) Lymph # (Auto) [place] # (Auto) Eos # (Auto) Baso # (Auto) Immature Gran # (Auto) Polychromasia Macrocytosis Ovalocytes Echinocytes Sodium Potassium Chloride Carbon Dioxide Anion Gap BUN Creatinine Est Cr Clr Drug Dosing Est GFR ( Amer) Est GFR (Non-Af Amer) BUN/Creatinine Ratio Glucose POC Glucose 140 H 195 H Estimat Average Glucose Hemoglobin A1c Calcium Magnesium Total Bilirubin AST ALT Alkaline Phosphatase Ammonia 67.0 Total Creatine Kinase Total Protein Albumin Globulin Albumin/Globulin Ratio Urine Color Urine Appearance Urine pH Ur Specific [place] Urine Protein Urine Glucose (UA) Urine Ketones Urine Blood Urine Nitrite Urine Bilirubin Urine Urobilinogen Ur Leukocyte Esterase Urine WBC (Auto) Urine RBC (Auto) U Hyaline Cast (Auto) U Epithel Cells (Auto) Urine Bacteria (Auto) Urine Yeast SARS-CoV-2, RNA, NAAT
--- NOTE | 2022-05-01 12:02 | Hospitalist Progress Note ---
Date of Service May 01, 2022 Assessment & Plan (1) Acute hepatic encephalopathy: Plan: Admitted with change in mental status and noted to have high ammonia level of 125 and UTI Likely the cause of hepatic and colopathy Has been getting lactulose and intravenous antibiotic Clinically much better with mental status back to her baseline She wants to go home (2) Increased ammonia level: Plan: Ammonia level is noted to be high at 125.0 on admission and is reduced to 67 as of this morning Patient is mentally clear and is at her baseline We will continue lactulose to have at least 1-2 bowel movements a day (3) UTI (urinary tract infection): Plan: Noted to have gram-negative bacilli in the urine Has been getting intravenous antibiotic with cefepime Await culture and sensitivity Likely the cause for her in couple apathy (4) COVID-19: Plan: Noted to have COVID-19 virus infection Remains asymptomatic with minimal cough No desaturation Will maintain isolation and observation (5) NG (nonalcoholic steatohepatitis): Plan: History of nonalcoholic cirrhosis We will continue lactulose and other medication (6) Generalized weakness: Plan: Has generalized weakness with ambulatory dysfunction Patient is at bedbound status at home with hospital bed Gets home health nurse visit 5 days a week who helps her to get out of bed (7) Ambulatory dysfunction: Plan: As above (8) Obesity, morbid (more than 100 lbs over ideal weight or BMI > 40): (9) DM type 2 (diabetes mellitus, type 2): Plan: Continue current medications and put her on sliding scale insulin coverage (10) Obstructive sleep apnea: Plan: Continue BiPAP and of CPAP Plan DVT prophylaxis SCDs CODE STATUS Full Admission and Anticipated Discharge Date Admission Date: May 01, 2022 Subjective 05/01/2022 The patient was seen and examined in telemetry unit and in the COVID room She has been feeling much better and is still has high temperature Confusion is cleared Remains generally weak and denies any shortness of breath Review of Systems Review of Systems: All systems reviewed and are unremarkable except as noted below Neurologic: No confusion Physical Exam Physical Exam: Lying in bed comfortably Constitutional: well developed, well nourished, + ill appearing and + morbidly obese Eyes: PERRL, conjunctivae normal, anicteric sclerae ENMT: external ear and nose normal, oropharynx normal Neck: trachea midline, no thyromegaly Respiratory: no respiratory distress Auscultation: + diminished lung sounds and + crackles (Minimal crackles at the bases) Cardiovascular: Rate/Rhythm: regular rate and regular rhythm; not tachycardic Heart Sounds: normal S1 and normal S2; no murmur Extremities: + edema (2+ edema bilaterally with chronic skin changes. 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) Gastrointestinal (Abdomen): Inspection/Auscultation: normal bowel sounds; abdomen not distended Percussion/Palpation: abdomen soft; abdomen nontender Musculoskeletal: No acute arthritis in any joint Neurologic: normal touch/pain/proprioception and moves all extremities (Less so in the legs); no focal motor deficits (Generally weak and lethargic and is bedbound) and not confused Lymphatic: no cervical or axillary lymphadenopathy Results & Data Results & Data ([facility]) Vital Signs (Past 12 Hours) Vital Signs Temp Pulse Pulse Pulse Resp BP BP 05/01/22 10:50 76 05/01/22 08:20 37.6 C H 76 18 133/73 05/01/22 04:45 78 05/01/22 04:11 77 19 05/01/22 02:30 37.7 C H 80 20 128/72 05/01/22 03:00 05/01/22 02:06 38.7 C H 80 20 115/67 05/01/22 01:50 85 20 115/67 Pulse Ox O2 Del Method O2 Flow Rate 05/01/22 10:50 05/01/22 08:20 96 Room Air 05/01/22 04:45 05/01/22 04:11 99 2 05/01/22 02:30 96 Room Air 05/01/22 03:00 Nasal Cannula 2 05/01/22 02:06 96 Room Air 05/01/22 01:50 96 Room Air Laboratory Results Short CBC 04/30/22 05/01/22 Range/Units 20:33 05:48 WBC 2.08 L 2.73 L (4.8-10.8) K/ul Hgb 10.3 L 9.9 L (12.0-16.0) g/dl Hct 30.6 L 30.2 L (34.1-44.9) % Plt Count 46 L 42 L (130-400) K/uL BMP 04/30/22 05/01/22 20:33 05:48 Sodium 135 L 137 Potassium 4.1 4.2 Chloride 106 107 Carbon Dioxide 23 24 BUN 14 14 Creatinine 0.79 0.82 Glucose 169 H 143 H Calcium 8.8 8.6 Cardiac Enzymes 04/30/22 Range/Units 20:33 Total Creatine Kinase 239 H (26-192) U/L Liver Function 04/30/22 Range/Units 20:33 Total Bilirubin 2.1 H (0.2-1.0) mg/dl AST 80 H (13-39) U/L ALT 38 (7-52) U/L Alkaline Phosphatase 94 (34-104) U/L Albumin 3.1 L (3.4-5.0) gm/dl Urine 04/30/22 Range/Units 20:12 Urine Color Yellow Urine Appearance Cloudy A (Clear) Urine pH 5.0 (4.5-7.5) Ur Specific [place] 1.014 (1.000-1.030) Urine Protein 1+ H (Negative) Urine Glucose (UA) Negative (Negative) Medications Administered Current Inpatient Medications Acetaminophen (Acetaminophen 325 Mg Tab) 650 mg PO Q4H PRN PRN Reason: Pain or Fever Stop: 05/31/22 02:44 Last Admin: 05/01/22 09:11 Dose: 650 mg Albuterol (Albuterol 0.083% Nebu Soln 3 Ml Vial) 2.5 mg INH DAILY PRN; Protocol PRN Reason: Shortness Of Breath Or Wheezin Stop: 05/31/22 02:44 Aspirin (Aspirin 81 Mg Ectab) 81 mg PO DAILY KRISTY Stop: 05/31/22 08:59 Last Admin: 05/01/22 09:05 Dose: 81 mg Atorvastatin Calcium (Atorvastatin 40 Mg Tab) 80 mg PO DAILY K[facility]STY Stop: 05/31/22 08:59 Last Admin: 05/01/22 09:04 Dose: 80 mg Benzonatate (Benzonatate 100 Mg Capsule) 100 mg PO TID PRN PRN Reason: Cough Stop: 05/31/22 02:44 Dextrose (Dextrose 50% 50 Ml Syringe) 25 - 50 ml IV UD PRN; Protocol PRN Reason: Hypoglycemia Protocol Stop: 05/31/22 03:14 Escitalopram Oxalate (Escitalopram Oxalate 20 Mg Tab) 20 mg PO DAILY K[facility]STY Stop: 05/31/22 08:59 Last Admin: 05/01/22 09:06 Dose: 20 mg Fluticasone Propionate (Fluticasone Propionate Na Spr 16 Gm Btl) 2 sprays MARIO DAILY [facility] Stop: 05/31/22 08:59 Last Admin: 05/01/22 09:10 Dose: 2 sprays Fluticasone/Vilanterol (Fluticasone/Vilanterol 200/25mcg 14 Puffs/Inhaler) 1 puffs INH DAILY K[facility]STY Stop: 05/31/22 08:59 Last Admin: 05/01/22 09:01 Dose: 1 puffs Furosemide (Furosemide 20 Mg Tab) 20 mg PO DAILY PRN PRN Reason: .LOWER EXTREMITY SWELLING Stop: 05/31/22 02:44 Gabapentin (Gabapentin 600 Mg Tab) 600 mg PO QPM [facility] Stop: 05/31/22 20:59 Gabapentin (Gabapentin 300 Mg Cap) 300 mg PO BID@0900,1400 [facility] Stop: 05/31/22 08:59 Last Admin: 05/01/22 09:04 Dose: 300 mg Glucagon (Glucagon For Inj 1 Mg Vial) 1 mg IM UD PRN; Protocol PRN Reason: Hypoglycemia Protocol Stop: 05/31/22 03:14 Glucose (Glucose 40% Gel 15 Gm Tube) 15 - 30 gm PO UD PRN; Protocol PRN Reason: Hypoglycemia Protocol Stop: 05/31/22 03:14 Glucose (Glucose 10 Tab/Tube) 4 - 8 tab PO UD PRN; Protocol PRN Reason: Hypoglycemia Protocol Stop: 05/31/22 03:14 Cefepime HCl 2,000 mg/ Syringe 20 mls @ 5 mls/min IV Q12H [facility]; Protocol Stop: 05/11/22 08:59 Last Admin: 05/01/22 09:12 Dose: 5 mls/min Insulin Aspart (Insulin Aspart Per Unit) 0 units SC ACHS [facility] Stop: 05/31/22 07:29 Last Admin: 05/01/22 09:28 Dose: 3 units Insulin Glargine (Lantus Per Unit Charge) 40 units SQ HS [facility] Stop: 05/31/22 20:59 Isosorbide Mononitrate (Isosorbide [place] Extended Rel 30 Mg Tabcr) 30 mg PO DAILY [facility] Stop: 05/31/22 08:59 Last Admin: 05/01/22 09:04 Dose: 30 mg Lactulose (Lactulose Syrup 30 Gm/45 Ml Udp) 30 gm PO TID [facility] Stop: 05/31/22 08:59 Last Admin: 05/01/22 09:15 Dose: 30 gm Levothyroxine Sodium (Levothyroxine Sodium 175 Mcg Tablet) 175 mcg PO DAILYBB KRISTY Stop: 05/31/22 06:29 Last Admin: 05/01/22 06:28 Dose: 175 mcg Lidocaine/Prilocaine (Lidocaine/Prilocaine 2.5% Ea Crm) 1 each EXT UD PRN PRN Reason: MEDI-PORT Stop: 05/31/22 02:44 Linaclotide (Linaclotide 145 Mcg Capsule) 290 mcg PO QAM KRISTY Stop: 05/31/22 08:59 Last Admin: 05/01/22 09:05 Dose: 290 mcg Miscellaneous (Carbohydrates For Hypoglycemia ) 15 - 30 gm PO UD PRN PRN Reason: Hypoglycemia Treatment Stop: 05/31/22 03:14 Nadolol (Nadolol 40 Mg Tab) 40 mg PO DAILY KRISTY Stop: 05/31/22 08:59 Last Admin: 05/01/22 09:05 Dose: 40 mg Nitroglycerin (Nitroglycerin Sl 0.4 Mg/Tab Tab) 0.4 mg SL UD PRN PRN Reason: Chest Pain Stop: 05/31/22 02:44 Ondansetron HCl (Ondansetron Inj 2 Mg/Ml 2 Ml Vial) 4 mg IV Q6H PRN PRN Reason: Nausea Stop: 05/31/22 02:44 Oxybutynin Chloride (Oxybutynin Chloride 5 Mg Tab) 5 mg PO BID KRISTY Stop: 05/31/22 08:59 Last Admin: 05/01/22 09:05 Dose: 5 mg Pantoprazole Sodium (Pantoprazole 40 Mg Tab) 40 mg PO BID KRISTY Stop: 05/31/22 08:59 Last Admin: 05/01/22 09:05 Dose: 40 mg Potassium Chloride (Potassium Chloride 10 Meq Tabcr) 10 meq PO DAILY KRISTY Stop: 05/31/22 08:59 Last Admin: 05/01/22 09:06 Dose: 10 meq Silver Sulfadiazine (Silver Sulfadiazine 1% Cr 50 Gm Jar) 1 appln TOP DAILY [facility] Stop: 05/31/22 08:59 Last Admin: 05/01/22 09:14 Dose: 1 appln Spironolactone (Spironolactone 25 Mg Tab) 50 mg PO DAILY [facility] Stop: 05/31/22 08:59 Last Admin: 05/01/22 09:07 Dose: 50 mg Tramadol HCl (Tramadol Hcl 50 Mg Tablet) 50 mg PO BID PRN PRN Reason: Severe Pain (Scale Score 7-10) Stop: 05/31/22 02:44 Trazodone HCl (Trazodone Hcl 50 Mg Tab) 50 mg PO HS [facility] Stop: 05/31/22 20:59 (1) DM type 2 (diabetes mellitus, type 2) Diabetes mellitus complication status: with other specified complication Diabetes mellitus snf insulin use: unspecified snf insulin use status Qualified Code(s): E11.69 - Type 2 diabetes mellitus with other specified complication
--- NOTE | 2022-05-01 20:57 | Electrocardiogram Report ---
Test Reason : Blood Pressure : / mmHG Vent. Rate : 084 BPM Atrial Rate : 084 BPM P-R Int : 214 ms QRS Dur : 092 ms QT Int : 370 ms P-R-T Axes : 051 -11 047 degrees QTc Int : 437 ms Sinus rhythm with 1st degree A-V block Low voltage QRS Possible Inferior infarct When compared with ECG of 09-AUG-2021 20:35, Limb lead reversal is no longer present Confirmed by Fausto Headley ([id number]) on 05/01/2022 8:57:01 PM Referred By: REFERRED SELF Confirmed By:Fausto Headley
[2022-05-01] MEDS: GABAPENTIN 600 MG TAB PO SCH (21:06)
[2022-05-01] MEDS: traZODone HCL 50 MG TAB PO SCH (21:07)
[2022-05-01] MEDS: LANTUS PER UNIT CHARGE SQ SCH (21:11)
[2022-05-02] MEDS: LEVOTHYROXINE SODIUM 175 MCG TABLET PO SCH (05:37)
[2022-05-02 06:08] LABS: Hematocrit (blood only) 28.6 % (34.1-44.9); White Blood Count 1.97 K/ul (4.8-10.8)
[2022-05-02 06:33] LABS: Albumin Level 2.9 gm/dl (3.4-5.0); Bilirubin,Total 1.9 mg/dl (0.2-1.0); Calcium 8.4 mg/dl (8.5-10.1); Creatinine Clr Calc Pharmacy 69.8 ml/min; Est GFR (African American) 78.3 ml/min; Est GFR (Non-African American) 67.5 ml/min; Magnesium 1.9 mg/dl (1.7-2.4); Potassium 3.9 mmol/L (3.5-5.1); Total Protein 5.9 gm/dl (6.0-8.3)
[2022-05-02 06:57] LABS: Estimated Average Glucose 169 mg/dl; Hemoglobin A1C 7.5 % (4.5-5.6)
[2022-05-02 07:01] LABS: Basophils # (auto) 0.02 K/uL (0-0.2); Eosinophils # (auto) 0.12 K/uL (0-0.50); Eosinophils % (auto) 6.1 %; Immature Granulocytes # (auto) 0.01 K/uL (0.00-0.02); Immature Granulocytes % (auto) 0.5 %; Lymphocytes # (auto) 0.47 K/uL (1.2-3.4); Lymphocytes % (auto) 23.9 %; Mean Corpuscular Hemoglobin 38.5 pg (25.0-34.0); Mean Platelet Volume 13.2 fL (9.4-12.3); Monocytes # (auto) 0.29 K/uL (0.24-0.82); Monocytes % (auto) 14.7 %; Neutrophils # (auto) 1.06 K/uL (1.4-6.5); Neutrophils % (auto) 53.8 %; Platelet Count 44 K/uL (130-400); Platelet Estimate Decreased (Normal); RDW Coefficient of Variation 17.4 % (11.5-14.5); RDW Standard Deviation 70.4 fL (36.4-46.3)
[2022-05-02] MEDS: LACTULOSE SYRUP 30 GM/45 ML UDP PO SCH ×3 (07:54→21:30)
[2022-05-02] MEDS: SILVER SULFADIAZINE 1% CR 50 GM JAR TOP SCH (07:56)
[2022-05-02] MEDS: LINACLOTIDE 145 MCG CAPSULE PO SCH (07:57)
[2022-05-02] MEDS: SPIRONOLACTONE 25 MG TAB PO SCH (07:57)
[2022-05-02] MEDS: ISOSORBIDE MONO EXTENDED REL 30 MG TABCR PO SCH (07:57)
[2022-05-02] MEDS: GABAPENTIN 300 MG CAP PO SCH ×2 (07:58→14:00)
[2022-05-02] MEDS: nadoloL 40 MG TAB PO SCH (07:58)
[2022-05-02] MEDS: ATORVASTATIN 40 MG TAB PO SCH (07:58)
[2022-05-02] MEDS: OXYBUTYNIN CHLORIDE 5 MG TAB PO SCH ×2 (07:59→20:57)
[2022-05-02] MEDS: ASPIRIN 81 MG ECTAB PO SCH (07:59)
[2022-05-02] MEDS: ESCITALOPRAM OXALATE 20 MG TAB PO SCH (07:59)
[2022-05-02] MEDS: PANTOprazole 40 MG TAB PO SCH ×2 (08:00→20:58)
[2022-05-02] MEDS: POTASSIUM CHLORIDE 10 MEQ TABCR PO SCH (08:00)
[2022-05-02] MEDS: FLUTICASONE PROPIONATE NA SPR 16 GM BTL NAE SCH (09:59)
[2022-05-02] MEDS: FLUTICASONE/VILANTEROL 200/25MCG 14 PUFFS/INHALER INH SCH (10:00)
[2022-05-02] MEDS: INSULIN ASPART PER UNIT SC SCH ×4 (10:03→22:09)
[2022-05-02] MEDS: cefUROXime axetil 250 MG TABLET PO SCH ×2 (12:34→17:41)
--- NOTE | 2022-05-02 16:38 | Hospitalist Progress Note ---
Date of Service May 02, 2022 Assessment & Plan (1) Acute hepatic encephalopathy: Plan: Admitted with change in mental status and noted to have high ammonia level of 125 and UTI Likely the cause of hepatic and colopathy Has been getting lactulose and intravenous antibiotic Clinically much better with mental status back to her baseline She wants to go home Mentally clear but remains very weak and not yet ready to be discharged (2) Increased ammonia level: Plan: Ammonia level is noted to be high at 125.0 on admission and is reduced to 67 as of this morning Patient is mentally clear and is at her baseline We will continue lactulose to have at least 1-2 bowel movements a day Has been having diarrhea and lactulose is on hold (3) UTI (urinary tract infection): Plan: Noted to have gram-negative bacilli in the urine Has been getting intravenous antibiotic with cefepime Await culture and sensitivity-has been growing Klebsiella pneumonia which is pansensitive and alpha strep but not Enterococcus Likely the cause for her encephalopathy We will continue current antibiotic (4) COVID-19: Plan: Noted to have COVID-19 virus infection Remains asymptomatic with minimal cough No desaturation Will maintain isolation and observation No respiratory symptoms (5) NG (nonalcoholic steatohepatitis): Plan: History of nonalcoholic cirrhosis We will continue lactulose and other medication (6) Generalized weakness: Plan: Has generalized weakness with ambulatory dysfunction Patient is at bedbound status at home with hospital bed Gets home health nurse visit 5 days a week who helps her to get out of bed (7) Ambulatory dysfunction: Plan: As above (8) Obesity, morbid (more than 100 lbs over ideal weight or BMI > 40): (9) DM type 2 (diabetes mellitus, type 2): Plan: Continue current medications and put her on sliding scale insulin coverage (10) Obstructive sleep apnea: Plan: Continue BiPAP and of CPAP Plan DVT prophylaxis SCDs CODE STATUS Full Admission and Anticipated Discharge Date Admission Date: May 01, 2022 Subjective 05/01/2022 The patient was seen and examined in telemetry unit and in the COVID room She has been feeling much better and is still has high temperature Confusion is cleared Remains generally weak and denies any shortness of breath 05/02/2022 The patient was seen and examined in telemetry unit and in the COVID room She has been having diarrhea without any abdominal pain, nausea and or vomiting Denies any cough and/or shortness of breath No fever and or chills Review of Systems Review of Systems: All systems reviewed and are unremarkable except as noted below Neurologic: No confusion Physical Exam Physical Exam: Lying in bed comfortably but feels generally very weak and lethargic Constitutional: well developed, well nourished, + ill appearing and + morbidly obese Eyes: PERRL, conjunctivae normal, anicteric sclerae ENMT: external ear and nose normal, oropharynx normal Neck: trachea midline, no thyromegaly Respiratory: no respiratory distress Auscultation: + diminished lung sounds and + crackles (Minimal crackles at the bases) Cardiovascular: Rate/Rhythm: regular rate and regular rhythm; not tachycardic Heart Sounds: normal S1 and normal S2; no murmur Extremities: + edema (2+ edema bilaterally with chronic skin changes. 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) Gastrointestinal (Abdomen): Inspection/Auscultation: normal bowel sounds; abdomen not distended Percussion/Palpation: abdomen soft; abdomen nontender Musculoskeletal: No acute arthritis in any joint Neurologic: normal touch/pain/proprioception and moves all extremities (Less so in the legs); no focal motor deficits (Generally weak and lethargic and is bedbound) and not confused Lymphatic: no cervical or axillary lymphadenopathy Results & Data Results & Data ([facility]) Vital Signs (Past 12 Hours) Vital Signs Temp Pulse Pulse Pulse Resp BP Pulse Ox 05/02/22 16:17 71 05/02/22 11:41 36.6 C 71 16 120/70 94 05/02/22 07:24 36.7 C 57 L 19 105/73 100 05/02/22 07:17 62 O2 Del Method 05/02/22 16:17 05/02/22 11:41 Room Air 05/02/22 07:24 CPAP 05/02/22 07:17 Laboratory Results Short CBC 05/02/22 Range/Units 05:32 WBC 1.97 L (4.8-10.8) K/ul Hgb 10.0 L (12.0-16.0) g/dl Hct 28.6 L (34.1-44.9) % Plt Count 44 L (130-400) K/uL BMP 05/02/22 05:32 Sodium 137 Potassium 3.9 Chloride 110 H Carbon Dioxide 23 BUN 16 Creatinine 0.89 Glucose 144 H Calcium 8.4 L Liver Function 08/22/22 Range/Units 05:32 Total Bilirubin 1.9 H (0.2-1.0) mg/dl AST 90 H (13-39) U/L ALT 42 (7-52) U/L Alkaline Phosphatase 97 (34-104) U/L Albumin 2.9 L (3.4-5.0) gm/dl Medications Administered Current Inpatient Medications Acetaminophen (Acetaminophen 325 Mg Tab) 650 mg PO Q4H PRN PRN Reason: Pain or Fever Stop: 05/31/22 02:44 Last Admin: 05/01/22 17:10 Dose: 650 mg Albuterol (Albuterol 0.083% Nebu Soln 3 Ml Vial) 2.5 mg INH DAILY PRN; Protocol PRN Reason: Shortness Of Breath Or Wheezin Stop: 05/31/22 02:44 Aspirin (Aspirin 81 Mg Ectab) 81 mg PO DAILY [facility] Stop: 05/31/22 08:59 Last Admin: 05/02/22 07:59 Dose: 81 mg Atorvastatin Calcium (Atorvastatin 40 Mg Tab) 80 mg PO DAILY [facility] Stop: 05/31/22 08:59 Last Admin: 05/02/22 07:58 Dose: 80 mg Benzonatate (Benzonatate 100 Mg Capsule) 100 mg PO TID PRN PRN Reason: Cough Stop: 05/31/22 02:44 Cefuroxime Axetil (Cefuroxime Axetil 250 Mg Tablet) 250 mg PO BIDM KRISTY; Protocol Stop: 05/05/22 23:59 Last Admin: 05/02/22 12:34 Dose: 250 mg Dextrose (Dextrose 50% 50 Ml Syringe) 25 - 50 ml IV UD PRN; Protocol PRN Reason: Hypoglycemia Protocol Stop: 05/31/22 03:14 Escitalopram Oxalate (Escitalopram Oxalate 20 Mg Tab) 20 mg PO DAILY [facility] Stop: 05/31/22 08:59 Last Admin: 05/02/22 07:59 Dose: 20 mg Fluticasone Propionate (Fluticasone Propionate Na Spr 16 Gm Btl) 2 sprays MARIO DAILY [facility] Stop: 05/31/22 08:59 Last Admin: 05/02/22 09:59 Dose: 2 sprays Fluticasone/Vilanterol (Fluticasone/Vilanterol 200/25mcg 14 Puffs/Inhaler) 1 puffs INH DAILY KRISTY Stop: 05/31/22 08:59 Last Admin: 05/02/22 10:00 Dose: 1 puffs Furosemide (Furosemide 20 Mg Tab) 20 mg PO DAILY PRN PRN Reason: .LOWER EXTREMITY SWELLING Stop: 05/31/22 02:44 Gabapentin (Gabapentin 600 Mg Tab) 600 mg PO QPM K[facility]ST[facility] Stop: 05/31/22 20:59 Last Admin: 05/01/22 21:06 Dose: 600 mg Gabapentin (Gabapentin 300 Mg Cap) 300 mg PO BID@0900,1400 [facility] Stop: 05/31/22 08:59 Last Admin: 05/02/22 14:00 Dose: 300 mg Glucagon (Glucagon For Inj 1 Mg Vial) 1 mg IM UD PRN; Protocol PRN Reason: Hypoglycemia Protocol Stop: 05/31/22 03:14 Glucose (Glucose 40% Gel 15 Gm Tube) 15 - 30 gm PO UD PRN; Protocol PRN Reason: Hypoglycemia Protocol Stop: 05/31/22 03:14 Glucose (Glucose 10 Tab/Tube) 4 - 8 tab PO UD PRN; Protocol PRN Reason: Hypoglycemia Protocol Stop: 05/31/22 03:14 Insulin Aspart (Insulin Aspart Per Unit) 0 units SC ACHS [facility] Stop: 05/31/22 07:29 Last Admin: 05/02/22 12:50 Dose: 8 units Insulin Glargine (Lantus Per Unit Charge) 40 units SQ HS [facility] Stop: 05/31/22 20:59 Last Admin: 05/01/22 21:11 Dose: 40 units Isosorbide Mononitrate (Isosorbide [place] Extended Rel 30 Mg Tabcr) 30 mg PO DAILY KRISTY Stop: 05/31/22 08:59 Last Admin: 05/02/22 07:57 Dose: 30 mg Lactulose (Lactulose Syrup 30 Gm/45 Ml Udp) 30 gm PO TID [facility] Stop: 05/31/22 08:59 Last Admin: 05/02/22 14:00 Dose: Not Given Levothyroxine Sodium (Levothyroxine Sodium 175 Mcg Tablet) 175 mcg PO DAILYBB [facility] Stop: 05/31/22 06:29 Last Admin: 05/02/22 05:37 Dose: 175 mcg Lidocaine/Prilocaine (Lidocaine/Prilocaine 2.5% Ea Crm) 1 each EXT UD PRN PRN Reason: MEDI-PORT Stop: 05/31/22 02:44 Linaclotide (Linaclotide 145 Mcg Capsule) 290 mcg PO QAM [facility]ST[facility] Stop: 05/31/22 08:59 Last Admin: 05/02/22 07:57 Dose: 290 mcg Miscellaneous (Carbohydrates For Hypoglycemia ) 15 - 30 gm PO UD PRN PRN Reason: Hypoglycemia Treatment Stop: 05/31/22 03:14 Nadolol (Nadolol 40 Mg Tab) 40 mg PO DAILY [facility] Stop: 05/31/22 08:59 Last Admin: 05/02/22 07:58 Dose: 40 mg Nitroglycerin (Nitroglycerin Sl 0.4 Mg/Tab Tab) 0.4 mg SL UD PRN PRN Reason: Chest Pain Stop: 05/31/22 02:44 Ondansetron HCl (Ondansetron Inj 2 Mg/Ml 2 Ml Vial) 4 mg IV Q6H PRN PRN Reason: Nausea Stop: 05/31/22 02:44 Oxybutynin Chloride (Oxybutynin Chloride 5 Mg Tab) 5 mg PO BID [facility] Stop: 05/31/22 08:59 Last Admin: 05/02/22 07:59 Dose: 5 mg Pantoprazole Sodium (Pantoprazole 40 Mg Tab) 40 mg PO BID [facility] Stop: 05/31/22 08:59 Last Admin: 05/02/22 08:00 Dose: 40 mg Potassium Chloride (Potassium Chloride 10 Meq Tabcr) 10 meq PO DAILY [facility] Stop: 05/31/22 08:59 Last Admin: 05/02/22 08:00 Dose: 10 meq Silver Sulfadiazine (Silver Sulfadiazine 1% Cr 50 Gm Jar) 1 appln TOP DAILY [facility] Stop: 05/31/22 08:59 Last Admin: 05/02/22 07:56 Dose: 1 appln Spironolactone (Spironolactone 25 Mg Tab) 50 mg PO DAILY [facility] Stop: 05/31/22 08:59 Last Admin: 05/02/22 07:57 Dose: 50 mg Tramadol HCl (Tramadol Hcl 50 Mg Tablet) 50 mg PO BID PRN PRN Reason: Severe Pain (Scale Score 7-10) Stop: 05/31/22 02:44 Trazodone HCl (Trazodone Hcl 50 Mg Tab) 50 mg PO HS [facility] Stop: 05/31/22 20:59 Last Admin: 05/01/22 21:07 Dose: 50 mg (1) DM type 2 (diabetes mellitus, type 2) Diabetes mellitus complication status: with other specified complication Diabetes mellitus jail insulin use: unspecified long term care pharmacist insulin use status Qualified Code(s): E11.69 - Type 2 diabetes mellitus with other specified complication
[2022-05-02] MEDS: traMADol HCL 50 MG TABLET PO PRN (20:56)
[2022-05-02] MEDS: traZODone HCL 50 MG TAB PO SCH (20:57)
[2022-05-02] MEDS: GABAPENTIN 600 MG TAB PO SCH (20:57)
[2022-05-02] MEDS: LANTUS PER UNIT CHARGE SQ SCH (22:09)
[2022-05-03] MEDS ORDERED: HEPARIN 100 UNIT/ML 5ML FLUSH FLUSH PRN (03:58)
[2022-05-03] MEDS: LEVOTHYROXINE SODIUM 175 MCG TABLET PO SCH (06:11)
[2022-05-03 06:40] LABS: Hematocrit (blood only) 28.9 % (34.1-44.9); Hemoglobin 9.5 g/dl (12.0-16.0); White Blood Count 2.04 K/ul (4.8-10.8)
[2022-05-03 06:47] LABS: Mean Platelet Volume 13.3 fL (9.4-12.3); Platelet Count 47 K/uL (130-400)
[2022-05-03 07:11] LABS: Basophils # (auto) 0.02 K/uL (0-0.2); Echinocytes 1+; Eosinophils # (auto) 0.18 K/uL (0-0.50); Eosinophils % (auto) 8.8 %; Immature Granulocytes # (auto) 0.01 K/uL (0.00-0.02); Immature Granulocytes % (auto) 0.5 %; Lymphocytes # (auto) 0.56 K/uL (1.2-3.4); Lymphocytes % (auto) 27.5 %; Macrocytosis Present; Mean Corpuscular Hemoglobin 36.3 pg (25.0-34.0); Mean Corpuscular Hgb Conc 32.9 g/dL (32.0-36.0); Mean Corpuscular Volume 110.3 fL (80.0-100.0); Monocytes # (auto) 0.24 K/uL (0.24-0.82); Monocytes % (auto) 11.8 %; Neutrophils # (auto) 1.03 K/uL (1.4-6.5); Neutrophils % (auto) 50.4 %; Ovalocytes 1+; RDW Coefficient of Variation 17.7 % (11.5-14.5); RDW Standard Deviation 72.8 fL (36.4-46.3); Red Blood Count 2.62 M/uL (3.93-5.22); Tear Drop Cells 2+
[2022-05-03 07:12] LABS: BUN Creatinine Ratio 22.4 (10-20); Bilirubin,Total 1.7 mg/dl (0.2-1.0); Calcium 8.5 mg/dl (8.5-10.1); Creatinine Clr Calc Pharmacy 81.7 ml/min; Est GFR (African American) 94.7 ml/min; Est GFR (Non-African American) 81.7 ml/min; Magnesium 1.9 mg/dl (1.7-2.4); Potassium 4.1 mmol/L (3.5-5.1)
[2022-05-03] MEDS: FLUTICASONE PROPIONATE NA SPR 16 GM BTL NAE SCH (08:13)
[2022-05-03] MEDS: FLUTICASONE/VILANTEROL 200/25MCG 14 PUFFS/INHALER INH SCH (08:13)
[2022-05-03] MEDS: SILVER SULFADIAZINE 1% CR 50 GM JAR TOP SCH (08:20)
[2022-05-03] MEDS: POTASSIUM CHLORIDE 10 MEQ TABCR PO SCH (08:20)
[2022-05-03] MEDS: SPIRONOLACTONE 25 MG TAB PO SCH (08:20)
[2022-05-03] MEDS: PANTOprazole 40 MG TAB PO SCH ×2 (08:20→21:24)
[2022-05-03] MEDS: OXYBUTYNIN CHLORIDE 5 MG TAB PO SCH ×2 (08:21→21:24)
[2022-05-03] MEDS: nadoloL 40 MG TAB PO SCH (08:21)
[2022-05-03] MEDS: LINACLOTIDE 145 MCG CAPSULE PO SCH (08:21)
[2022-05-03] MEDS: ASPIRIN 81 MG ECTAB PO SCH (08:22)
[2022-05-03] MEDS: ATORVASTATIN 40 MG TAB PO SCH (08:22)
[2022-05-03] MEDS: ISOSORBIDE MONO EXTENDED REL 30 MG TABCR PO SCH (08:22)
[2022-05-03] MEDS: cefUROXime axetil 250 MG TABLET PO SCH ×2 (08:22→16:56)
[2022-05-03] MEDS: ESCITALOPRAM OXALATE 20 MG TAB PO SCH (08:22)
[2022-05-03] MEDS: GABAPENTIN 300 MG CAP PO SCH ×2 (08:22→12:32)
[2022-05-03] MEDS: LACTULOSE SYRUP 30 GM/45 ML UDP PO SCH ×3 (08:25→21:25)
[2022-05-03] MEDS: INSULIN ASPART PER UNIT SC SCH ×4 (08:38→21:08)
--- NOTE | 2022-05-03 15:39 | Hospitalist Progress Note ---
Date of Service May 03, 2022 Assessment & Plan (1) Acute hepatic encephalopathy: Plan: Admitted with change in mental status and noted to have high ammonia level of 125 and UTI Likely the cause of hepatic and colopathy Has been getting lactulose and intravenous antibiotic Clinically much better with mental status back to her baseline She wants to go home Mentally clear but remains very weak and not yet ready to be discharged No more and couple apathy and she is back to her baseline Has been having diarrhea which is seems to be under control Lactulose on hold now (2) Increased ammonia level: Plan: Ammonia level is noted to be high at 125.0 on admission and is reduced to 67 as of this morning Patient is mentally clear and is at her baseline We will continue lactulose to have at least 1-2 bowel movements a day Has been having diarrhea and lactulose is on hold (3) UTI (urinary tract infection): Plan: Noted to have gram-negative bacilli in the urine Has been getting intravenous antibiotic with cefepime Await culture and sensitivity-has been growing Klebsiella pneumonia which is pansensitive and alpha strep but not Enterococcus Likely the cause for her encephalopathy We will continue current antibiotic Denies any urinary symptoms (4) COVID-19: Plan: Noted to have COVID-19 virus infection Remains asymptomatic with minimal cough No desaturation Will maintain isolation and observation No respiratory symptoms (5) NG (nonalcoholic steatohepatitis): Plan: History of nonalcoholic cirrhosis We will continue lactulose and other medication (6) Generalized weakness: Plan: Has generalized weakness with ambulatory dysfunction Patient is at bedbound status at home with hospital bed Gets home health nurse visit 5 days a week who helps her to get out of bed Does not want to get any PT and OT evaluation (7) Ambulatory dysfunction: Plan: As above (8) Obesity, morbid (more than 100 lbs over ideal weight or BMI > 40): (9) DM type 2 (diabetes mellitus, type 2): Plan: Continue current medications and put her on sliding scale insulin coverage (10) Obstructive sleep apnea: Plan: Continue BiPAP and of CPAP Plan DVT prophylaxis SCDs CODE STATUS Full Her is sick at home with cough and she does not want to go home today Likely discharge tomorrow Admission and Anticipated Discharge Date Admission Date: May 01, 2022 Subjective 05/01/2022 The patient was seen and examined in telemetry unit and in the COVID room She has been feeling much better and is still has high temperature Confusion is cleared Remains generally weak and denies any shortness of breath 05/02/2022 The patient was seen and examined in telemetry unit and in the COVID room She has been having diarrhea without any abdominal pain, nausea and or vomiting Denies any cough and/or shortness of breath No fever and or chills 05/03/2022 The patient was seen and examined in telemetry unit in the COVID room She has been weak and lethargic and does not want to go home today Diarrhea seems to be controlling and denies any respiratory symptoms Review of Systems Review of Systems: All systems reviewed and are unremarkable except as noted below Neurologic: No confusion Physical Exam Physical Exam: Lying in bed comfortably but feels generally very weak and lethargic Constitutional: well developed, well nourished, + ill appearing and + morbidly obese Eyes: PERRL, conjunctivae normal, anicteric sclerae ENMT: external ear and nose normal, oropharynx normal Neck: trachea midline, no thyromegaly Respiratory: no respiratory distress Auscultation: + diminished lung sounds and + crackles (Minimal crackles at the bases) Cardiovascular: Rate/Rhythm: regular rate and regular rhythm; not tachycardic Heart Sounds: normal S1 and normal S2; no murmur Extremities: + edema (2+ edema bilaterally with chronic skin changes. 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) Gastrointestinal (Abdomen): Inspection/Auscultation: normal bowel sounds; abdomen not distended Percussion/Palpation: abdomen soft; abdomen nontender Musculoskeletal: No acute arthritis in any joint Neurologic: normal touch/pain/proprioception and moves all extremities (Less so in the legs); no focal motor deficits (Generally weak and lethargic and is bedbound) and not confused Lymphatic: no cervical or axillary lymphadenopathy Results & Data Results & Data ([facility]) Vital Signs (Past 12 Hours) Vital Signs Temp Pulse Pulse Resp BP Pulse Ox O2 Del Method 05/03/22 11:24 36.6 C 64 18 105/64 94 Room Air 05/03/22 07:21 Room Air 05/03/22 07:46 36.8 C 57 L 18 105/69 98 Nasal Cannula 05/03/22 07:00 56 L 05/03/22 04:01 36.5 C 57 L 18 112/62 92 CPAP O2 Flow Rate 05/03/22 11:24 05/03/22 07:21 05/03/22 07:46 05/03/22 07:00 05/03/22 04:01 2 Laboratory Results Short CBC 05/03/22 Range/Units 06:00 WBC 2.04 L (4.8-10.8) K/ul Hgb 9.5 L (12.0-16.0) g/dl Hct 28.9 L (34.1-44.9) % Plt Count 47 L (130-400) K/uL BMP 05/03/22 06:00 Sodium 135 L Potassium 4.1 Chloride 108 H Carbon Dioxide 23 BUN 17 Creatinine 0.76 Glucose 172 H Calcium 8.5 Liver Function 05/03/22 Range/Units 06:00 Total Bilirubin 1.7 H (0.2-1.0) mg/dl AST 82 H (13-39) U/L ALT 42 (7-52) U/L Alkaline Phosphatase 100 (34-104) U/L Albumin 3.0 L (3.4-5.0) gm/dl Medications Administered Current Inpatient Medications Acetaminophen (Acetaminophen 325 Mg Tab) 650 mg PO Q4H PRN PRN Reason: Pain or Fever Stop: 05/31/22 02:44 Last Admin: 05/01/22 17:10 Dose: 650 mg Albuterol (Albuterol 0.083% Nebu Soln 3 Ml Vial) 2.5 mg INH DAILY PRN; Protocol PRN Reason: Shortness Of Breath Or Wheezin Stop: 05/31/22 02:44 Aspirin (Aspirin 81 Mg Ectab) 81 mg PO DAILY [facility] Stop: 05/31/22 08:59 Last Admin: 05/03/22 08:22 Dose: 81 mg Atorvastatin Calcium (Atorvastatin 40 Mg Tab) 80 mg PO DAILY [facility] Stop: 05/31/22 08:59 Last Admin: 05/03/22 08:22 Dose: 80 mg Benzonatate (Benzonatate 100 Mg Capsule) 100 mg PO TID PRN PRN Reason: Cough Stop: 05/31/22 02:44 Cefuroxime Axetil (Cefuroxime Axetil 250 Mg Tablet) 250 mg PO BIDM [facility]; Protocol Stop: 05/05/22 23:59 Last Admin: 05/03/22 08:22 Dose: 250 mg Dextrose (Dextrose 50% 50 Ml Syringe) 25 - 50 ml IV UD PRN; Protocol PRN Reason: Hypoglycemia Protocol Stop: 05/31/22 03:14 Escitalopram Oxalate (Escitalopram Oxalate 20 Mg Tab) 20 mg PO DAILY [facility] Stop: 05/31/22 08:59 Last Admin: 05/03/22 08:22 Dose: 20 mg Fluticasone Propionate (Fluticasone Propionate Na Spr 16 Gm Btl) 2 sprays MARIO DAILY [facility] Stop: 05/31/22 08:59 Last Admin: 05/03/22 08:13 Dose: 2 sprays Fluticasone/Vilanterol (Fluticasone/Vilanterol 200/25mcg 14 Puffs/Inhaler) 1 puffs INH DAILY [facility] Stop: 05/31/22 08:59 Last Admin: 05/03/22 08:13 Dose: 1 puffs Furosemide (Furosemide 20 Mg Tab) 20 mg PO DAILY PRN PRN Reason: .LOWER EXTREMITY SWELLING Stop: 05/31/22 02:44 Gabapentin (Gabapentin 600 Mg Tab) 600 mg PO QPM [facility] Stop: 05/31/22 20:59 Last Admin: 05/02/22 20:57 Dose: 600 mg Gabapentin (Gabapentin 300 Mg Cap) 300 mg PO BID@0900,1400 [facility] Stop: 05/31/22 08:59 Last Admin: 05/03/22 12:32 Dose: 300 mg Glucagon (Glucagon For Inj 1 Mg Vial) 1 mg IM UD PRN; Protocol PRN Reason: Hypoglycemia Protocol Stop: 05/31/22 03:14 Glucose (Glucose 40% Gel 15 Gm Tube) 15 - 30 gm PO UD PRN; Protocol PRN Reason: Hypoglycemia Protocol Stop: 05/31/22 03:14 Glucose (Glucose 10 Tab/Tube) 4 - 8 tab PO UD PRN; Protocol PRN Reason: Hypoglycemia Protocol Stop: 05/31/22 03:14 Heparin Sodium (Porcine) (Heparin 100 Unit/Ml 5ml Flush) 5 ml FLUSH PRN PRN PRN Reason: Flush Stop: 06/02/22 03:57 Insulin Aspart (Insulin Aspart Per Unit) 0 units SC ACHS [facility] Stop: 05/31/22 07:29 Last Admin: 05/03/22 12:28 Dose: 5 units Insulin Glargine (Lantus Per Unit Charge) 40 units SQ HS [facility] Stop: 05/31/22 20:59 Last Admin: 05/02/22 22:09 Dose: 40 units Isosorbide Mononitrate (Isosorbide [place] Extended Rel 30 Mg Tabcr) 30 mg PO DAILY [facility] Stop: 05/31/22 08:59 Last Admin: 05/03/22 08:22 Dose: 30 mg Lactulose (Lactulose Syrup 30 Gm/45 Ml Udp) 30 gm PO TID [facility] Stop: 05/31/22 08:59 Last Admin: 05/03/22 12:31 Dose: Not Given Levothyroxine Sodium (Levothyroxine Sodium 175 Mcg Tablet) 175 mcg PO DAILYBB [facility] Stop: 05/31/22 06:29 Last Admin: 05/03/22 06:11 Dose: 175 mcg Lidocaine/Prilocaine (Lidocaine/Prilocaine 2.5% Ea Crm) 1 each EXT UD PRN PRN Reason: MEDI-PORT Stop: 05/31/22 02:44 Linaclotide (Linaclotide 145 Mcg Capsule) 290 mcg PO QAM [facility] Stop: 05/31/22 08:59 Last Admin: 05/03/22 08:21 Dose: 290 mcg Miscellaneous (Carbohydrates For Hypoglycemia ) 15 - 30 gm PO UD PRN PRN Reason: Hypoglycemia Treatment Stop: 05/31/22 03:14 Nadolol (Nadolol 40 Mg Tab) 40 mg PO DAILY [facility] Stop: 05/31/22 08:59 Last Admin: 05/03/22 08:21 Dose: 40 mg Nitroglycerin (Nitroglycerin Sl 0.4 Mg/Tab Tab) 0.4 mg SL UD PRN PRN Reason: Chest Pain Stop: 05/31/22 02:44 Ondansetron HCl (Ondansetron Inj 2 Mg/Ml 2 Ml Vial) 4 mg IV Q6H PRN PRN Reason: Nausea Stop: 05/31/22 02:44 Oxybutynin Chloride (Oxybutynin Chloride 5 Mg Tab) 5 mg PO BID [facility] Stop: 05/31/22 08:59 Last Admin: 05/03/22 08:21 Dose: 5 mg Pantoprazole Sodium (Pantoprazole 40 Mg Tab) 40 mg PO BID [facility] Stop: 05/31/22 08:59 Last Admin: 05/03/22 08:20 Dose: 40 mg Potassium Chloride (Potassium Chloride 10 Meq Tabcr) 10 meq PO DAILY [facility] Stop: 05/31/22 08:59 Last Admin: 05/03/22 08:20 Dose: 10 meq Silver Sulfadiazine (Silver Sulfadiazine 1% Cr 50 Gm Jar) 1 appln TOP DAILY [facility] Stop: 05/31/22 08:59 Last Admin: 05/03/22 08:20 Dose: 1 appln Spironolactone (Spironolactone 25 Mg Tab) 50 mg PO DAILY [facility] Stop: 05/31/22 08:59 Last Admin: 05/03/22 08:20 Dose: 50 mg Tramadol HCl (Tramadol Hcl 50 Mg Tablet) 50 mg PO BID PRN PRN Reason: Severe Pain (Scale Score 7-10) Stop: 05/31/22 02:44 Last Admin: 05/02/22 20:56 Dose: 50 mg Trazodone HCl (Trazodone Hcl 50 Mg Tab) 50 mg PO HS [facility] Stop: 05/31/22 20:59 Last Admin: 05/02/22 20:57 Dose: 50 mg (1) DM type 2 (diabetes mellitus, type 2) Diabetes mellitus complication status: with other specified complication 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
[2022-05-03] MEDS: LANTUS PER UNIT CHARGE SQ SCH (21:09)
[2022-05-03] MEDS: traMADol HCL 50 MG TABLET PO PRN (21:22)
[2022-05-03] MEDS: traZODone HCL 50 MG TAB PO SCH (21:24)
[2022-05-03] MEDS: GABAPENTIN 600 MG TAB PO SCH (21:24)
[2022-05-04] MEDS: LEVOTHYROXINE SODIUM 175 MCG TABLET PO SCH (05:33)
[2022-05-04] MEDS: SPIRONOLACTONE 25 MG TAB PO SCH (08:06)
[2022-05-04] MEDS: nadoloL 40 MG TAB PO SCH (08:06)
[2022-05-04] MEDS: PANTOprazole 40 MG TAB PO SCH (08:06)
[2022-05-04] MEDS: FLUTICASONE/VILANTEROL 200/25MCG 14 PUFFS/INHALER INH SCH (08:06)
[2022-05-04] MEDS: OXYBUTYNIN CHLORIDE 5 MG TAB PO SCH (08:06)
[2022-05-04] MEDS: FLUTICASONE PROPIONATE NA SPR 16 GM BTL NAE SCH (08:06)
[2022-05-04] MEDS: POTASSIUM CHLORIDE 10 MEQ TABCR PO SCH (08:08)
[2022-05-04] MEDS: LINACLOTIDE 145 MCG CAPSULE PO SCH (08:09)
[2022-05-04] MEDS: GABAPENTIN 300 MG CAP PO SCH (08:09)
[2022-05-04] MEDS: ISOSORBIDE MONO EXTENDED REL 30 MG TABCR PO SCH (08:09)
[2022-05-04] MEDS: ESCITALOPRAM OXALATE 20 MG TAB PO SCH (08:10)
[2022-05-04] MEDS: cefUROXime axetil 250 MG TABLET PO SCH (08:10)
[2022-05-04] MEDS: SILVER SULFADIAZINE 1% CR 50 GM JAR TOP SCH (08:10)
[2022-05-04] MEDS: ASPIRIN 81 MG ECTAB PO SCH (08:10)
[2022-05-04] MEDS: ATORVASTATIN 40 MG TAB PO SCH (08:10)
[2022-05-04] MEDS: LACTULOSE SYRUP 30 GM/45 ML UDP PO SCH (08:10)
[2022-05-04] MEDS: INSULIN ASPART PER UNIT SC SCH ×2 (08:31→11:40)
[2022-05-04 09:42] LABS: Hematocrit (blood only) 31.7 % (34.1-44.9); Hemoglobin 10.4 g/dl (12.0-16.0); White Blood Count 2.55 K/ul (4.8-10.8)
[2022-05-04 09:55] LABS: Mean Platelet Volume 12.9 fL (9.4-12.3); Platelet Count 56 K/uL (130-400)
[2022-05-04 10:17] LABS: Basophils # (auto) 0.01 K/uL (0-0.2); Basophils % (auto) 0.4 %; Eosinophils % (auto) 7.8 %; Immature Granulocytes # (auto) 0.01 K/uL (0.00-0.02); Immature Granulocytes % (auto) 0.4 %; Lymphocytes % (auto) 27.5 %; Mean Corpuscular Hgb Conc 32.8 g/dL (32.0-36.0); Mean Corpuscular Volume 109.7 fL (80.0-100.0); Monocytes # (auto) 0.28 K/uL (0.24-0.82); Neutrophils # (auto) 1.35 K/uL (1.4-6.5); Neutrophils % (auto) 52.9 %; RDW Coefficient of Variation 17.5 % (11.5-14.5); RDW Standard Deviation 71.2 fL (36.4-46.3); Red Blood Count 2.89 M/uL (3.93-5.22)
[2022-05-04 10:25] LABS: BUN Creatinine Ratio 22.4 (10-20); Calcium 8.9 mg/dl (8.5-10.1); Creatinine Clr Calc Pharmacy 92.7 ml/min; Est GFR (African American) 106.2 ml/min; Est GFR (Non-African American) 91.6 ml/min; Potassium 4.1 mmol/L (3.5-5.1)
--- NOTE | 2022-05-04 12:48 | Discharge Summary ---
Date of Service May 04, 2022 Admission HPI Per Admitting Provider DATE OF ADMISSION: 05/01/2022. CHIEF COMPLAINT: Some mild confusion and not feeling well. HISTORY OF PRESENT ILLNESS: A 66-year-old female with a past medical history significant for type 2 diabetes, hyperlipidemia, hypothyroidism, restrictive lung disease, obstructive sleep apnea on CPAP, cirrhosis of liver, NG, portal hypertensive gastropathy, esophageal varices, venous insufficiency, chronic diastolic CHF, hypertension, morbid obesity, GERD, urinary incontinence due to immobility, venous stasis dermatitis of both lower extremities, fibromyalgia, wheelchair bound secondary to cerebral palsy, chronic pain syndrome, thrombocytopenia, iron deficiency anemia due to chronic blood loss, pancytopenia, depression, spinal stenosis, primary insomnia, impaired mobility and ADLs. Lives with her and [id number] and niece. Comes because of some mild confusion. As per , she is not able to operate her wheelchair and she seemed to be off, and she was feeling cold. She has cough since yeste rday. One of the family members was diagnosed with COVID. The patient was brought in here, she was found to have ammonia of 125. Urinalysis positive, has temp spike in the ER and COVID came back positive. Currently, resting comfortably, hemodynamically stable. Can answers questions appropriately, seems to be doing okay. She felt some cold, has some cough, but denies any headache, has some mild neck pain. Has chronic back pain, and has some abdominal discomfort. Denies any chest pain, denies any shortness of breath. Appetite is okay. No difficulty swallowing. Has some mild runny nose, mild sore throat. No nausea, no vomiting. Normal bowel movements. Once in a while she has burning micturition. Also, as per the , she was having some skin ulcer in the right upper thigh in the posterior aspect and they are doing dressing at home. The patient has home health 5 times a week, someone is always with the patient as per the . ALLERGIES: PENICILLIN, ADHESIVE TAPE, PERFLUTREN. PAST MEDICAL HISTORY: As mentioned above. PAST SURGICAL HISTORY: Debridement of skin, right sided , colonoscopy, dental surgery, dilatation and curettage, EGD, hysteroscopy with biopsy, insertion of intrauterine device, pelvic and hip joint surgery as teenager, removal of loop electrode surgery, Repair/Graft Achilles tendon. MEDICATIONS: The patient is on albuterol 2 puffs inhalation p.r.n., albuterol nebulization p.r.n., aspirin 81 mg p.o. daily, atorvastatin 80 mg p.o. daily, benzonatate 100 mg p.o. t.i.d. p.r.n., Symbicort 2 puffs inhalation b.i.d., Trulicity 4.5 mg subcutaneous on Monday, Lexapro 20 mg p.o. daily, Flonase 2 sprays intranasal daily, Lasix 20 mg daily p.r.n., gabapentin 600 mg p.o. p.m., 300 mg p.o. b.i.d., NovoLog FlexPen as directed, Lantus 40 units subcutaneously at bedtime, isosorbide-mononitrate 30 mg p.o. daily, lactulose 30 mL p.o. t.i.d., levothyroxine 175 mcg p.o. daily, lidocaine p.r.n., Linzess 290 mcg p.o. a.m., nadolol 40 mg p.o. daily, oxybutynin 5 mg p.o. b.i.d., Protonix 40 mg p.o. b.i.d., potassium chloride 10 mEq p.o. daily, sulfasalazine topical daily apply to the wound, spironolactone 50 mg p.o. daily, tramadol 50 mg p.o. b.i.d. p.r.n., trazodone 50 mg p.o. at bedtime. FAMILY HISTORY: Significant for father has diabetes, of [place] at age of 61, mother of [place] at age 72. Sister had [place] at age of 46, she has hypertension. SOCIAL HISTORY: , lives with her and [id number]. No smoking, alcohol rare, no drug use. REVIEW OF SYSTEMS: As per HPI. Rest of review of systems negative. Admission Exam Per Admitting Provider GENERAL: The patient is morbidly obese, not in acute distress currently. VITAL SIGNS: Temperature 38.7, pulse 88, respiratory rate 20, blood pressure 100/56, oxygen 94% on room air. HEENT: Pupils equal, round and reactive to light. Oral mucosa moist. NECK: No JVD. No neck masses. CARDIOVASCULAR: S1 and S2 heard. Regular rate and rhythm. No murmur, no gallop. RESPIRATORY SYSTEM: Normal AP diameter. No accessory muscle use. No wheezing, no crackles. ABDOMEN: Soft, bowel sounds present. Mild abdominal discomfort, no guarding, no rigidity, no distention. CENTRAL NERVOUS SYSTEM: Alert, awake, and oriented. No facial droop. Speech is okay. Insight is okay. Moves extremities. EXTREMITIES: Bilateral lower extremity chronic edema present, no erythema seen. SKIN: Stage II skin ulcer seen in the right upper thigh in posterior aspect. No obvious drainage seen. Principal Diagnosis Acute hepatic encephalopathy UTI Asymptomatic COVID-19 infection Discharge Exam GENERAL: Alert and oriented x3. NAD, on RA. Class III obese, chronically ill/frail appearing HEENT: No pallor, no icterus. Pupils equal, round and reactive to light. Oral mucosa moist. NECK: No JVD, no neck masses. HEART: S1 and S2 heard. Regular rate and rhythm. No murmur, no gallop. RESPIRATORY SYSTEM: Normal AP diameter. No accessory muscle use. No wheezing, no crackles. ABDOMEN: Soft, bowel sounds present, nontender, no distention. CENTRAL NERVOUS SYSTEM: No facial droop. Speech is clear. Obeys simple commands. Moves extremities. EXTREMITIES: trace ble edema w/ chronic skin changes, no erythema seen. Discharge Data Allergies Allergy/AdvReac Type Severity Reaction Status Date / Time Penicillins Allergy Intermediate Rash Verified 08/10/21 00:30 adhesive tape Allergy Mild ITCHING Verified 08/10/21 00:30 perflutren AdvReac Intermediate LOWER BACK Verified 08/10/21 00:30 PAIN Consultations 05/01/22 08:00 Consult Gastroenterology Routine Hospital Course (1) Acute hepatic encephalopathy: Admitted with change in mental status and noted to have high ammonia level of 125 and UTI Likely the cause of hepatic and colopathy Has been getting lactulose and intravenous antibiotic Clinically much better with mental status back to her baseline She wants to go home Mentally clear but remains very weak and would like to go home Diarrhea better, can resume home lactulose. (2) Increased ammonia level: Ammonia level is noted to be high at 125.0 on admission and is reduced to 67 as of this morning Patient is mentally clear and is at her baseline We will continue lactulose to have at least 1-2 bowel movements a day (3) UTI (urinary tract infection): Noted to have gram-negative bacilli in the urine --> complete antbiotic course upon discharge. (4) COVID-19: Noted to have COVID-19 virus infection Remains asymptomatic with minimal cough No desaturation Will maintain isolation and observation for 5 days from diagnosis which is 04/30/22 No respiratory symptoms (5) NG (nonalcoholic steatohepatitis): History of nonalcoholic cirrhosis We will continue lactulose and other medication (6) Generalized weakness: Has generalized weakness with ambulatory dysfunction Patient is at bedbound status at home with hospital bed Gets home health nurse visit 5 days a week who helps her to get out of bed Does not want to get any PT and OT evaluation (7) Ambulatory dysfunction: As above (8) Obesity, morbid (more than 100 lbs over ideal weight or BMI > 40): (9) DM type 2 (diabetes mellitus, type 2): Continue current medications and put her on sliding scale insulin coverage (10) Obstructive sleep apnea: Continue BiPAP and of CPAP Plan DVT prophylaxis SCDs CODE STATUS Full Patient being discharged home with following instruction at the point of discharge: Follow-up with your primary care physician within a week time. Maintain self-isolation from the date of COVID diagnosis that is 04/30/2022 for total of 5 days followed by masking when around people for next 5 days. You are being discharged on antibiotics for UTI, complete the course. Get your blood work CBC and CMP done in a week time and have the results forwar ded to your primary care physician. You will have to call primary care office to set up the test. Continue with your home health and physical therapy. Take your medications as prescribed. Total Time Total Time Spent Total Time Spent (In Minutes): 35 Discharge Plan Discharge Items Patient Disposition: Home - Home Health Services Reason For Visit: ILLNESS Discharge Diagnosis: Acute hepatic encephalopathy UTI COVID-19 infection, asymptomatic Activity: Resume your previous activity Non-emergency contact: Primary Care Provider Call non-emergency contact if: you have any medication questions, your symptoms worsen and your temperature is above 101 Follow-up/Referrals: Vanita Dunn MD [Primary Care Provider] - (Date & Time 05/13/2022 11:00 AM Provider Vanita Dunn MD [facility] ) Diet: Carb Consistent or DM2 and Low Sodium (2gm) Addtl Attending Provider Instructions: Follow-up with your primary care physician within a week time. Maintain self-isolation from the date of COVID diagnosis that is 04/30/2022 for total of 5 days followed by masking when around people for next 5 days. You are being discharged on antibiotics for UTI, complete the course. Get your blood work CBC and CMP done in a week time and have the results forw arded to your primary care physician. You will have to call primary care office to set up the test. Continue with your home health and physical therapy. Take your medications as prescribed. Pending Studies at Discharge: No Stand-Alone Forms: My [facility] [employer], Smoking Cessation Medications and DC Order Prescriptions: New cefuroxime axetil 250 mg Tablet 250 mg PO BIDM 3 Days Qty: 6 0RF Continued silver sulfadiazine 1 % Cream 1 applic TOPICAL DAILY levothyroxine 175 mcg tablet 175 mcg PO DAILY atorvastatin 80 mg tablet 80 mg PO DAILY albuterol sulfate 2.5 mg /3 mL (0.083 %) Solution For Nebulization 2.5 mg INHALATION DIRECTED PRN (Reason: Shortness Of Breath Or Wheezing) isosorbide mononitrate 30 mg tablet extended release 24 hr 30 mg PO DAILY potassium chloride 10 mEq tablet extended release 10 meq PO DAILY spironolactone 25 mg tablet 50 mg PO DAILY pantoprazole 20 mg tablet,delayed release (DR/EC) 40 mg PO BID gabapentin 300 mg capsule 600 mg PO QPM gabapentin 300 mg capsule 300 mg PO BID Rx Instructions: Take 1 tab in am & mid day. May take extra dose in AM & MID DAY PRN. Total of 6 a day max. aspirin 81 mg tablet,chewable 81 mg PO DAILY furosemide 20 mg tablet 20 mg PO DAILY PRN (Reason: .LOWER EXTREMITY SWELLING) oxybutynin chloride 5 mg tablet 5 mg PO BID albuterol sulfate 5 mg/mL Solution For Nebulization 2.5 mg INHALATION DIRECTED PRN (Reason: Shortness Of Breath Or Wheezing) insulin aspart U-100 [Novolog Flexpen U-100 Insulin] 100 unit/mL (3 mL) insulin pen See Rx Instructions .ROUTE .COMPLEX Rx Instructions: 35 UNITS @ BREAKFAST, 39 UNITS @ BEFORE LUNCH, 45 UNITS BEFORE SUPPER lactulose 10 gram/15 mL solution 30 ml PO TID Rx Instructions: TITRATE DOSE FOR EFFECT OF 3-5 BM DAILY insulin glargine [Lantus Solostar U-100 Insulin] 100 unit/mL (3 mL) insulin pen 40 unit SUBCUT HS Trulicity 4.5 mg/0.5 mL pen injector 4.5 mg SUBCUT .Q MON trazodone 50 mg tablet 50 mg PO HS tramadol 50 mg Tablet 50 mg PO BID PRN (Reason: Severe Pain (Scale Score 7-10)) lidocaine-prilocaine 2.5-2.5 % Cream 1 applic topical DIRECTED PRN (Reason: MEDI-PORT) benzonatate 100 mg Capsule 100 mg PO TID PRN (Reason: Cough) nadolol 40 mg tablet 40 mg PO DAILY fluticasone propionate [Flonase Allergy Relief] 50 mcg/actuation [place],Suspension 2 spray INTRANASAL DAILY Rx Instructions: administer into each nostril escitalopram oxalate 20 mg tablet 20 mg PO DAILY budesonide-formoterol 160-4.5 mcg/actuation Hfa Aerosol Inhaler 2 puff INHALATION BID Linzess 290 mcg capsule 290 mcg PO QAM Discharge Orders: Discharge Order (Routine); Ordered 05/04/22 Ordered By: Elias Ayers Admission Data Admit Date/Time: 05/01/22 01:03 Attending Provider: Elias Ayers Admit Provider: Alexis Guardado Primary Care Provider: Vanita Dunn Other Providers: Isabel Farnsworth
== END 2022-05-04 15:16 | disposition home health service (06) | DRG 441 ==
LOC: ED 19:30 → 2S 05-01 01:03 → SUATTDRO 05-01 01:03 → 2S 05-01 02:06

== ENCOUNTER 2022-06-04 16:25 | Inpatient (IN) ==
--- NOTE | 2022-06-04 16:58 | Emergency Department Note ---
Impression & Plan Fatigue, Weakness, Acute UTI, Serum ammonia increased, Constipation, THOMPSON (nonalcoholic steatohepatitis) ED Provider Note Provider: Surya Villarreal MD DATE OF SERVICE: 06/04/2022 CHIEF COMPLAINT: Intermittent nausea, general weakness and aches and pains HISTORY OF PRESENT ILLNESS: Patient is a 67-year-old female past medical history including type 2 diabetes, fibromyalgia, hypothyroidism, venous stasis, Thompson, GERD, chronic back pain presenting here today reporting that she is just aching and hurting all over. Was seen here several times over the last several weeks. Had COVID the first half of April does not think she is totally recovered from this. Patient states that she was told that she had a urine infection last week and had a change in antibiotics several days ago for MRSA in this. Patient states that she has not had fevers but endorses some chills. No trauma reported. Has had some some constipation issues. Praful laxatives last several days but has not had a good bowel movement in almost a week. No sick contacts otherwise reported. REVIEW OF SYSTEMS: A total of 10 review of systems was obtained and negative except as stated above in the HPI. PAST MEDICAL HISTORY: As noted above MEDICATIONS: Reviewed home medications including most recently Bactrim 5 doses t aken thus far. SOCIAL HISTORY: and lives with PHYSICAL EXAM: GENERAL: alert and oriented sitting in her motorized wheelchair in room C1. Head: normocephalic and atraumatic EYES: No injection, discharge or icterus. NECK: Trachea midline. ENT: Mucous membranes pink and moist. LUNGS: Airway patent. No retractions. Breath sounds clear HEART: Regular rate and rhythm. No chest wall tenderness ABDOMEN: Soft and non-tender, without guarding or rebound. SKIN: Acyanotic, warm, dry EXTREMITIES: Patient with 1-2+ bilateral lower extremity swelling and venous stasis changes. NEUROLOGICAL: No aphasia. No facial droop or slurred speech. EK bpm normal sinus rhythm without PVC or PAC. No acute ST segment elevation or depression with a QTC of 449. CONTINUOUS CARDIAC MONITORING: was ordered and showed a heart rate of 60s-80s bpm in NSR Patient's laboratory studies and imaging reviewed. Differential includes Infection, dehydration, metabolic abnormality, hypo/hyperg lycemia, electrolyte disturbance, anemia, hypoxia, cardiac sources, intracerebral event, toxicologic, neurologic, as well as other pathologies. IMPRESSION/MEDICAL DECISION MAKING: Reviewed patient medical record and she has multiple comorbidities. MRSA urine culture from last week and switched to Bactrim several days ago. Afebrile here no fever reported at home although she subjectively reports some chills. Constipation reported but did eat today and not having acute obstructive symptoms at this point such as severe abdominal pain. Patient did have a abdominal CT on the and report reviewed. We will obtain a chest x-ray and KUB as well as basic blood work today. We will send cultures given the recent infection. Blood work with continued leukopenia in comparison to past WBC counts. Stable mild anemia. Stable thrombocytopenia. No severe electrolyte abnormalities noted without an elevated lactate. No lipase elevation. Troponin not elevated. Interestingly ammonia is somewhat elevated 77 and CK is elevated at 590. Has been taking lactulose report but not having bowel movements and now again ammonia is elevating. Negative COVID. Question if she is experiencing sign ificant myalgias causing the elevated creatinine kinase. Again does not clearly frankly appear to be rhabdomyolysis. Chest and abdominal x-rays per radiology no acute pneumonia and some fecal retention but no nonobstructive bowel gas pattern. Given her constipation with her lactulose elevated ammonia and her generalized fatigue and discussion with her given her significant plaints and fatigue symptoms could be the beginning development of hepatic encephalopathy discussed with her further care at the hospital. Given a dose of lactulose. Given evening dose of Bactrim. DIAGNOSIS: Weakness, fatigue, elevated ammonia, constipation, MRSA UTI DISPOSITION: Hospitalist will evaluate Patient was agreeable with this plan. Past Med/Surg History Medical History Ambulatory dysfunction Asthma DOES NOT USE INH. REPORTS USING NEB TREATMENTS BID. Bilateral lower extremity edema Cardiac murmur does not follow w/ cardio; echo 11/2017 [place] Cerebral palsy Chronic back pain Chronic pain Dark stools Diplopia reports intermittent x 1-2 weeks. pt reports PCP aware and scheduled for brain MRI 03/11 at [place]. 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 Major depressive disorder, recurrent, moderate Morbid obesity with BMI of 50.0-59.9, adult Obstructive sleep apnea CPAP + OXYGEN AT 2 LPM @ NIGHT On home oxygen therapy 2 LPM @ NIGHT + CPAP Osteoarthritis Pancreatic cyst Poor historian SOB (shortness of breath) on exertion Venous insufficiency Wheelchair bound Surgical History H/O wisdom tooth extraction History of Achilles tendon repair History of section History of colonoscopy History of dilatation and curettage History of esophagogastroduodenoscopy (EGD) EUS 02/22/2019 [facility] History of hip surgery History of strabismus surgery History of tooth extraction Family History Father Family history of diabetes mellitus Myocardial infarction, Onset Age: 61 Mother Myocardial infarction, Onset Age: 72 Sister Myocardial infarction Social History Smoking Status: Never smoker Second Hand Exposure: No; Hx Alcohol Use: No Hx Substance Use: No Preferred Language: Guamanian Communication Ability: Effective Parts Clerk Required: No Beliefs That Will Affect Care: None marital status: Current Living Situation: Spouse and Family Current Living Situation Comment: Lives with , Sister and grandson Feels Safe at Home: Yes Assistive Devices: Glasses, Wheelchair and Other Allergies Allergies Allergy/AdvReac Type Severity Reaction Status Date / Time Penicillins Allergy Intermediate Rash Verified 08/10/21 00:30 adhesive tape Allergy Mild ITCHING Verified 08/10/21 00:30 perflutren AdvReac Intermediate LOWER BACK Verified 08/10/21 00:30 PAIN Home Meds Home Medications Medication Instructions Recorded Confirmed albuterol sulfate 2.5 mg/3 mL 2.5 mg inhalation DIRECTED PRN 04/30/22 06/04/22 (0.083 %) solution for nebulization Shortness Of Breath Or Wheezing albuterol sulfate 5 mg/mL(0.5 %) 2.5 mg inhalation DIRECTED PRN 04/30/22 06/04/22 solution for nebulization Shortness Of Breath Or Wheezing aspirin 81 mg chewable tablet 81 mg PO DAILY 04/30/22 06/04/22 atorvastatin 80 mg tablet 80 mg PO DAILY 04/30/22 06/04/22 budesonide-formoterol HFA 160 2 puff inhalation BID 04/30/22 06/04/22 mcg-4.5 mcg/actuation aerosol inhaler dulaglutide 4.5 mg/0.5 mL 4.5 mg subcut .Q MON 04/30/22 06/04/22 subcutaneous pen injector (Trulicity) escitalopram oxalate 20 mg tablet 20 mg PO DAILY 04/30/22 06/04/22 fluticasone propionate 50 2 spray intranasal DAILY 04/30/22 06/04/22 mcg/actuation nasal spray,suspension (Flonase Allergy Relief) furosemide 20 mg tablet 20 mg PO DAILY PRN .LOWER 04/30/22 06/04/22 EXTREMITY SWELLING gabapentin 300 mg capsule 300 mg PO BID 04/30/22 06/04/22 gabapentin 300 mg capsule 600 mg PO QPM 04/30/22 06/04/22 insulin aspart U-100 100 unit/mL See Rx Instructions .Route .COMPLEX 04/30/22 06/04/22 (3 mL) subcutaneous pen (Novolog Flexpen U-100 Insulin aspart) insulin glargine 100 unit/mL (3 40 unit subcut HS 04/30/22 06/04/22 mL) subcutaneous pen (Lantus Solostar U-100 Insulin) isosorbide mononitrate 30 mg 30 mg PO DAILY 04/30/22 06/04/22 tablet,extended release 24 hr lactulose 10 gram/15 mL oral 30 ml PO TID 04/30/22 06/04/22 solution lidocaine-prilocaine 2.5 %-2.5 % 1 applic topical DIRECTED PRN 04/30/22 06/04/22 topical cream MEDI-PORT nadolol 40 mg tablet 40 mg PO DAILY 04/30/22 06/04/22 oxybutynin chloride 5 mg tablet 5 mg PO BID 04/30/22 06/04/22 pantoprazole 20 mg tablet,delayed 40 mg PO BID 04/30/22 06/04/22 release potassium chloride 10 mEq 10 meq PO DAILY 04/30/22 06/04/22 tablet,extended release silver sulfadiazine 1 % topical 1 applic topical DAILY apply to 04/30/22 06/04/22 cream wound spironolactone 25 mg tablet 50 mg PO DAILY 04/30/22 06/04/22 trazodone 50 mg tablet 50 mg PO HS 04/30/22 06/04/22 levothyroxine 150 mcg tablet 150 mcg PO DAILY 06/04/22 06/04/22 metformin 500 mg tablet,extended 500 mg PO DAILY 06/04/22 06/04/22 release 24 hr sulfamethoxazole 800 1 tab PO BID 06/04/22 06/04/22 mg-trimethoprim 160 mg tablet Previous Rx's Medication Instructions Recorded cefdinir 300 mg capsule 300 mg PO BID 10 days #20 caps 05/30/22 Results & Data (ED) Vital Signs Vital Signs - 24 hr 06/04/22 16:28 06/04/22 17:36 06/04/22 18:00 Temperature 36.5 C Temperature Source Oral Pulse Rate 79 Respiratory Rate 14 Respiratory Effort / Characteristics Non-Labored Spontaneous Respiratory Depth Normal Respiratory Pattern Regular Blood Pressure 114/65 116/67 Blood Pressure Mean 81 83 Blood Pressure Position Sitting Pulse Oximetry 93 96 Oxygen Delivery Method Room Air Room Air Sepsis Recent Fever Within 48 Hours No Sepsis New/Unexplained Change in Mental Status No Sepsis Action Taken by Nursing No Action Required 06/04/22 18:00 Temperature Temperature Source Pulse Rate 65 Respiratory Rate 22 Respiratory Effort / Characteristics Respiratory Depth Respiratory Pattern Blood Pressure Blood Pressure Mean Blood Pressure Position Pulse Oximetry Oxygen Delivery Method Sepsis Recent Fever Within 48 Hours Sepsis New/Unexplained Change in Mental Status Sepsis Action Taken by Nursing Laboratory Data Result diagrams: 06/04/22 17:25 06/04/22 17:25 Lab Results 06/04/22 06/04/22 06/04/22 Range/Units 17:25 17:25 17:25 WBC 3.44 L (4.8-10.8) K/ul RBC 2.99 L (3.93-5.22) M/uL Hgb 11.1 L (12.0-16.0) g/dl Hct 33.4 L (34.1-44.9) % MCV 111.7 H (80.0-100.0) fL MCH 37.1 H (25.0-34.0) pg MCHC 33.2 (32.0-36.0) g/dL RDW Std Deviation 76.2 H (36.4-46.3) fL RDW Coeff of Bradley 18.2 H (11.5-14.5) % Plt Count 76 L (130-400) K/uL MPV 13.7 H (9.4-12.3) fL Immature Gran % (Auto) 0.3 % Neut % (Auto) 57.5 % Lymph % (Auto) 19.8 % [place] % (Auto) 12.2 % Eos % (Auto) 9.0 % Baso % (Auto) 1.2 % Neut # (Auto) 1.98 (1.4-6.5) K/uL Lymph # (Auto) 0.68 L (1.2-3.4) K/uL [place] # (Auto) 0.42 (0.24-0.82) K/uL Eos # (Auto) 0.31 (0-0.50) K/uL Baso # (Auto) 0.04 (0-0.2) K/uL Immature Gran # (Auto) 0.01 (0.00-0.02) K/uL Platelet Estimate Decreased L (Normal) Sodium 135 L (136-145) mmol/L Potassium 4.9 (3.5-5.1) mmol/L Chloride 107 (98-107) mmol/L Carbon Dioxide 24 (21-32) mmol/L Anion Gap 4 (3-11) BUN 17 (6-23) mg/dl Creatinine 0.79 (0.6-1.2) mg/dl Est Cr Clr Drug Dosing Not Reportable Est GFR ( Amer) 89.8 ml/min Est GFR (Non-Af Amer) 77.5 ml/min BUN/Creatinine Ratio 21.5 H (10-20) Glucose 219 H (70-99(Fasting)) mg/dl Lactate (0.4-2.0) mmol/L Calcium 9.0 (8.5-10.1) mg/dl Magnesium 2.0 (1.7-2.4) mg/dl Total Bilirubin 1.4 H (0.2-1.0) mg/dl AST 66 H (13-39) U/L ALT 52 (7-52) U/L Alkaline Phosphatase 108 H (34-104) U/L Ammonia 77.0 H (18-72) umol/L Total Creatine Kinase 590 H (26-192) U/L Troponin I High Sens 7.1 (0-14) pg/ml Total Protein 6.4 (6.0-8.3) gm/dl Albumin 3.2 L (3.4-5.0) gm/dl Globulin 3.2 (2.5-4.0) gm/dl Albumin/Globulin Ratio 1.0 (0.9-2) Lipase 37 (11-82) U/L Procalcitonin (0-0.5) ng/ml TSH (0.300-4.500) uIu/ml Free T4 (0.61-1.60) ng/dl SARS-CoV-2, RNA, NAAT (NEGATIVE) 06/04/22 06/04/22 06/04/22 Range/Units 17:25 17:25 17:25 WBC (4.8-10.8) K/ul RBC (3.93-5.22) M/uL Hgb (12.0-16.0) g/dl Hct (34.1-44.9) % MCV (80.0-100.0) fL MCH (25.0-34.0) pg MCHC (32.0-36.0) g/dL RDW Std Deviation (36.4-46.3) fL RDW Coeff of Bradley (11.5-14.5) % Plt Count (130-400) K/uL MPV (9.4-12.3) fL Immature Gran % (Auto) % Neut % (Auto) % Lymph % (Auto) % [place] % (Auto) % Eos % (Auto) % Baso % (Auto) % Neut # (Auto) (1.4-6.5) K/uL Lymph # (Auto) (1.2-3.4) K/uL [place] # (Auto) (0.24-0.82) K/uL Eos # (Auto) (0-0.50) K/uL Baso # (Auto) (0-0.2) K/uL Immature Gran # (Auto) (0.00-0.02) K/uL Platelet Estimate (Normal) Sodium (136-145) mmol/L Potassium (3.5-5.1) mmol/L Chloride (98-107) mmol/L Carbon Dioxide (21-32) mmol/L Anion Gap (3-11) BUN (6-23) mg/dl Creatinine (0.6-1.2) mg/dl Est Cr Clr Drug Dosing Est GFR ( Amer) ml/min Est GFR (Non-Af Amer) ml/min BUN/Creatinine Ratio (10-20) Glucose (70-99(Fasting)) mg/dl Lactate 1.5 (0.4-2.0) mmol/L Calcium (8.5-10.1) mg/dl Magnesium (1.7-2.4) mg/dl Total Bilirubin (0.2-1.0) mg/dl AST (13-39) U/L ALT (7-52) U/L Alkaline Phosphatase (34-104) U/L Ammonia (18-72) umol/L Total Creatine Kinase (26-192) U/L Troponin I High Sens (0-14) pg/ml Total Protein (6.0-8.3) gm/dl Albumin (3.4-5.0) gm/dl Globulin (2.5-4.0) gm/dl Albumin/Globulin Ratio (0.9-2) Lipase (11-82) U/L Procalcitonin 0.11 (0-0.5) ng/ml TSH 0.034 L (0.300-4.500) uIu/ml Free T4 1.58 (0.61-1.60) ng/dl SARS-CoV-2, RNA, NAAT (NEGATIVE) 06/04/22 Range/Units 17:25 WBC (4.8-10.8) K/ul RBC (3.93-5.22) M/uL Hgb (12.0-16.0) g/dl Hct (34.1-44.9) % MCV (80.0-100.0) fL MCH (25.0-34.0) pg MCHC (32.0-36.0) g/dL RDW Std Deviation (36.4-46.3) fL RDW Coeff of Bradley (11.5-14.5) % Plt Count (130-400) K/uL MPV (9.4-12.3) fL Immature Gran % (Auto) % Neut % (Auto) % Lymph % (Auto) % [place] % (Auto) % Eos % (Auto) % Baso % (Auto) % Neut # (Auto) (1.4-6.5) K/uL Lymph # (Auto) (1.2-3.4) K/uL [place] # (Auto) (0.24-0.82) K/uL Eos # (Auto) (0-0.50) K/uL Baso # (Auto) (0-0.2) K/uL Immature Gran # (Auto) (0.00-0.02) K/uL Platelet Estimate (Normal) Sodium (136-145) mmol/L Potassium (3.5-5.1) mmol/L Chloride (98-107) mmol/L Carbon Dioxide (21-32) mmol/L Anion Gap (3-11) BUN (6-23) mg/dl Creatinine (0.6-1.2) mg/dl Est Cr Clr Drug Dosing Est GFR ( Amer) ml/min Est GFR (Non-Af Amer) ml/min BUN/Creatinine Ratio (10-20) Glucose (70-99(Fasting)) mg/dl Lactate (0.4-2.0) mmol/L Calcium (8.5-10.1) mg/dl Magnesium (1.7-2.4) mg/dl Total Bilirubin (0.2-1.0) mg/dl AST (13-39) U/L ALT (7-52) U/L Alkaline Phosphatase (34-104) U/L Ammonia (18-72) umol/L Total Creatine Kinase (26-192) U/L Troponin I High Sens (0-14) pg/ml Total Protein (6.0-8.3) gm/dl Albumin (3.4-5.0) gm/dl Globulin (2.5-4.0) gm/dl Albumin/Globulin Ratio (0.9-2) Lipase (11-82) U/L Procalcitonin (0-0.5) ng/ml TSH (0.300-4.500) uIu/ml Free T4 (0.61-1.60) ng/dl SARS-CoV-2, RNA, NAAT NEGATIVE (NEGATIVE) Imaging Data Radiologist's Impression: Chest X-Ray 06/04/22 16:49 XR chest 1V portable, XR KUB/Abdomen 1 view HISTORY: 67 years-old Female weakness acute weakness COMPARISON: CT abdomen and pelvis 05/29/2022, chest radiograph 05/22/2022 TECHNIQUE: AP view of the chest with KUB radiograph FINDINGS: CHEST: Right IJ central venous catheter is unchanged. Moderate cardiomegaly. No pneumothorax or large pleural effusion. Mild subsegmental bibasilar densities favoring atelectasis. Degenerative changes of the shoulders and spine. KUB: Moderate fecal retention with nonobstructive bowel gas pattern. IUD of the mid uterus. Renal shadows are obscured by bowel gas. No renal or ureteral calculi identified by radiography. Electronic device projects over the right midabdomen. Degenerative changes of the spine, pelvis and hips. IMPRESSION: 1. Cardiomegaly without acute process of the chest. 2. Nonobstructive bowel gas pattern. 3. Moderate fecal retention. ACT 112: Negative or not required by law. The above report was generated using voice recognition software. It may contain grammatical, syntax or spelling errors. Electronically signed by: Serg Torres M.D. 06/04/2022 6:22 PM KUB X-Ray 06/04/22 16:50 XR chest 1V portable, XR KUB/Abdomen 1 view HISTORY: 67 years-old Female weakness acute weakness COMPARISON: CT abdomen and pelvis 05/29/2022, chest radiograph 05/22/2022 TECHNIQUE: AP view of the chest with KUB radiograph FINDINGS: CHEST: Right IJ central venous catheter is unchanged. Moderate cardiomegaly. No pneumothorax or large pleural effusion. Mild subsegmental bibasilar densities favoring atelectasis. Degenerative changes of the shoulders and spine. KUB: Moderate fecal retention with nonobstructive bowel gas pattern. IUD of the mid uterus. Renal shadows are obscured by bowel gas. No renal or ureteral calculi identified by radiography. Electronic device projects over the right midabdomen. Degenerative changes of the spine, pelvis and hips. IMPRESSION: 1. Cardiomegaly without acute process of the chest. 2. Nonobstructive bowel gas pattern. 3. Moderate fecal retention. ACT 112: Negative or not required by law. The above report was generated using voice recognition software. It may contain grammatical, syntax or spelling errors. Electronically signed by: Serg Torres M.D. 06/04/2022 6:22 PM Discharge Plan Visit Data Chief Complaint: Infection Stated Complaint: MRSA, ANTIOBIOTICS NOT HELPING ED Provider: Cherelle,Surya T Discharge Problem: Fatigue, Weakness, Acute UTI, Serum ammonia increased, Constipation, THOMPSON (nonalcoholic steatohepatitis) Patient Disposition: Being Evaluated by Hospitalist Forms Stand Alone Forms: My [facility] Prescriptions Prescriptions: No Action cefdinir 300 mg capsule 300 mg PO BID 10 Days Qty: 20 0RF silver sulfadiazine 1 % Cream 1 applic TOPICAL DAILY atorvastatin 80 mg tablet 80 mg PO DAILY albuterol sulfate 2.5 mg /3 mL (0.083 %) Solution For Nebulization 2.5 mg INHALATION DIRECTED PRN (Reason: Shortness Of Breath Or Wheezing) isosorbide mononitrate 30 mg tablet extended release 24 hr 30 mg PO DAILY potassium chloride 10 mEq tablet extended release 10 meq PO DAILY spironolactone 25 mg tablet 50 mg PO DAILY pantoprazole 20 mg tablet,delayed release (DR/EC) 40 mg PO BID gabapentin 300 mg capsule 600 mg PO QPM gabapentin 300 mg capsule 300 mg PO BID Rx Instructions: Take 1 tab in am & mid day. May take extra dose in AM & MID DAY PRN. Total of 6 a day max. aspirin 81 mg tablet,chewable 81 mg PO DAILY furosemide 20 mg tablet 20 mg PO DAILY PRN (Reason: .LOWER EXTREMITY SWELLING) oxybutynin chloride 5 mg tablet 5 mg PO BID albuterol sulfate 5 mg/mL Solution For Nebulization 2.5 mg INHALATION DIRECTED PRN (Reason: Shortness Of Breath Or Wheezing) insulin aspart U-100 [Novolog Flexpen U-100 Insulin] 100 unit/mL (3 mL) insulin pen See Rx Instructions .ROUTE .COMPLEX Rx Instructions: 35 UNITS @ BREAKFAST, 39 UNITS @ BEFORE LUNCH, 45 UNITS BEFORE SUPPER lactulose 10 gram/15 mL solution 30 ml PO TID Rx Instructions: TITRATE DOSE FOR EFFECT OF 3-5 BM DAILY insulin glargine [Lantus Solostar U-100 Insulin] 100 unit/mL (3 mL) insulin pen 40 unit SUBCUT HS Trulicity 4.5 mg/0.5 mL pen injector 4.5 mg SUBCUT .Q MON trazodone 50 mg tablet 50 mg PO HS lidocaine-prilocaine 2.5-2.5 % Cream 1 applic topical DIRECTED PRN (Reason: MEDI-PORT) nadolol 40 mg tablet 40 mg PO DAILY fluticasone propionate [Flonase Allergy Relief] 50 mcg/actuation [place],Suspension 2 spray INTRANASAL DAILY Rx Instructions: administer into each nostril escitalopram oxalate 20 mg tablet 20 mg PO DAILY budesonide-formoterol 160-4.5 mcg/actuation Hfa Aerosol Inhaler 2 puff INHALATION BID sulfamethoxazole-trimethoprim 800-160 mg tablet 1 tab PO BID levothyroxine 150 mcg tablet 150 mcg PO DAILY metformin 500 mg tablet extended release 24 hr 500 mg PO DAILY Referrals Referrals: Vanita Dunn MD [Primary Care Provider] -
[2022-06-04 17:38] LABS: Hematocrit (blood only) 33.4 % (34.1-44.9); Hemoglobin 11.1 g/dl (12.0-16.0); White Blood Count 3.44 K/ul (4.8-10.8)
[2022-06-04 18:03] LABS: Alanine Aminotransferase 52 U/L (7-52); Albumin Level 3.2 gm/dl (3.4-5.0); Alkaline Phosphatase 108 U/L (34-104); Anion Gap 4 (3-11); Aspartate Aminotransferase 66 U/L (13-39); BUN Creatinine Ratio 21.5 (10-20); Bilirubin,Total 1.4 mg/dl (0.2-1.0); Blood Urea Nitrogen 17 mg/dl (6-23); Carbon Dioxide 24 mmol/L (21-32); Chloride 107 mmol/L (98-107); Creatine Kinase 590 U/L (26-192); Est GFR (African American) 89.8 ml/min; Est GFR (Non-African American) 77.5 ml/min; Globulin 3.2 gm/dl (2.5-4.0); Glucose 219 mg/dl (70-99(Fasting)); Lipase 37 U/L (11-82); Potassium 4.9 mmol/L (3.5-5.1); Sodium 135 mmol/L (136-145); Total Protein 6.4 gm/dl (6.0-8.3)
[2022-06-04 18:05] LABS: Troponin I High Sensitivity 7.1 pg/ml (0-14)
[2022-06-04 18:09] LABS: Basophils # (auto) 0.04 K/uL (0-0.2); Basophils % (auto) 1.2 %; Eosinophils # (auto) 0.31 K/uL (0-0.50); Immature Granulocytes # (auto) 0.01 K/uL (0.00-0.02); Immature Granulocytes % (auto) 0.3 %; Lymphocytes # (auto) 0.68 K/uL (1.2-3.4); Lymphocytes % (auto) 19.8 %; Mean Corpuscular Hemoglobin 37.1 pg (25.0-34.0); Mean Corpuscular Hgb Conc 33.2 g/dL (32.0-36.0); Mean Corpuscular Volume 111.7 fL (80.0-100.0); Mean Platelet Volume 13.7 fL (9.4-12.3); Monocytes # (auto) 0.42 K/uL (0.24-0.82); Monocytes % (auto) 12.2 %; Neutrophils # (auto) 1.98 K/uL (1.4-6.5); Neutrophils % (auto) 57.5 %; Platelet Count 76 K/uL (130-400); Platelet Estimate Decreased (Normal); RDW Coefficient of Variation 18.2 % (11.5-14.5); RDW Standard Deviation 76.2 fL (36.4-46.3); Red Blood Count 2.99 M/uL (3.93-5.22)
[2022-06-04 18:13] LABS: Thyroid Stimulating Hormone 0.034 uIu/ml (0.300-4.500)
--- NOTE | 2022-06-04 18:24 | XRay Report ---
XR chest 1V portable, XR KUB/Abdomen 1 view HISTORY: 67 years-old Female weakness acute weakness COMPARISON: CT abdomen and pelvis 05/29/2022, chest radiograph 05/22/2022 TECHNIQUE: AP view of the chest with KUB radiograph FINDINGS: CHEST: Right IJ central venous catheter is unchanged. Moderate cardiomegaly. No pneumothorax or large pleura l effusion. Mild subsegmental bibasilar densities favoring atelectasis. Degenerative changes of the s houlders and spine. KUB: Moderate fecal retention with nonobstructive bowel gas pattern. IUD of the mid uterus. Renal shadows are obscured by bowel gas. No renal or ureteral calculi identified by radiography. Electronic device projects over the right midabdomen. Degenerative changes of the spine, pelvis and hips. IMPRESSION: 1. Cardiomegaly without acute process of the chest. 2. Nonobstructive bowel gas pattern. 3. Moderate fecal retention. ACT 112: Negative or not required by law. The above report was generated using voice recognition software. It may contain grammatical, syntax o r spelling errors. Electronically signed by: Serg Torres M.D. 06/04/2022 6:22 PM
[2022-06-04] MEDS ORDERED: LACTULOSE SYRUP 30 GM/45 ML UDP PO STA (18:28)
[2022-06-04 18:45] LABS: T4 Free Thyroxine 1.58 ng/dl (0.61-1.60)
[2022-06-04] MEDS ORDERED: SULFAMETHOXAZOLE/TRIMETHOPRIM DS 800/160MG TAB PO ONE (18:46)
[2022-06-04] MEDS ORDERED: ALBUMIN 25% 100 mL 25 GM/100 ML VIAL IV ONE (19:19)
[2022-06-04] MEDS ORDERED: PROMETHAZINE HCL 12.5 MG in SODIUM CHLORIDE 0.9% 50 ML IV PRN (20:20)
[2022-06-04] MEDS ORDERED: ACETAMINOPHEN 325 MG TAB PO PRN (20:20)
--- NOTE | 2022-06-04 20:25 | History & Physical Report ---
Date of Service June 04, 2022 Assessment & Plan (1) Abdominal pain: Plan: Multifactorial Persistent UTI (MRSA on recent urine CS from recent ER visit) Constipation asthma/restrictive lung disease as per records, at baseline hx fibromyalgia Hypertension, stable hyperlipidemia, on statin Rx hx NAFLD cirrhosis, no overt decompensation THAD on BiPAP DM2 insulin requiring, reasonable control as of recent hemoglobin A1c of 7.13 April 2022 chronic pancytopenia secondary to cirrhosis hx cerebral palsy as per records, hypothyroidism, TSH noted to be low Borderline hyperkalemia secondary to home medications, mild rhabdomyolysis secondary to illness Possible functional disability OBS GMF Blood cultures (concern for bacteremia given MRSA in patient's urine) Facilitate lactulose and Linzess Hold spironolactone and supplemental potassium for now while on Bactrim given borderline hyperkalemia Follow CPK, appropriate hold statin for now basal bolus insulin, ISS BG goal [id number], carb count coverage PT OT eval DVT prophylaxis. SCDs RE thrombocytopenia Full code Patient requesting updates from providers. Mr. Syed Bustos, contact numbers [phone]. Text document was generated using [employer] voice recognition software. It may contain grammatical or spelling errors. Kindly contact undersigned for clarification of any documentation item in question. History of Present Illness Chief Complaint: Abdominal pain, constipated, achy all over Primary Care Provider: Vanita Dunn MD History obtained from patient, family, and records. Medical history significant for asthma/restrictive lung disease as per records, mood disorder, fibromyalgia, hypertension, hyperlipidemia, NAFLD cirrhosis, THAD on BiPAP, DM2 insulin requiring, chronic pancytopenia (baseline hemoglobin 11), cerebral palsy as per records, hypothyroidism, history of MRSA Recent confinement last month for hepatic encephalopathy. Last week, patient seen at the ER for right-sided abdominal pain nausea symptoms. Symptoms attributed to UTI. Patient discharged on cefdinir course. Urine CS later grew MRSA. Patient called by pharmacist and instructed to start Bactrim course and stop cefdinir. Worsening abdominal pain despite antibiotic Rx as per patient. Chills at home. Usual headache, chest pain, SOB complaints as per patient. Constipated for 2 days. Patient and claim somebody told him to stop her Linzess Rx. Fair compliance with lactulose. Patient brought to the ER for evaluation. MEDICAL HISTORY: As above. SURGICAL HISTORY: She has had dental surgery, gynecologic section, hip surgery, and tendon repair. FAMILY HISTORY: Heart disease. Diabetes PERSONAL AND SOCIAL HISTORY: Nonsmoker. No chronic intake of alcoholic beverages, disabled. Allergies Allergy/AdvReac Type Severity Reaction Status Date / Time Penicillins Allergy Intermediate Rash Verified 08/10/21 00:30 adhesive tape Allergy Mild ITCHING Verified 08/10/21 00:30 perflutren AdvReac Intermediate LOWER BACK Verified 08/10/21 00:30 PAIN Home Medications Medication Instructions Recorded Confirmed Type albuterol sulfate 2.5 mg/3 mL 2.5 mg inhalation DIRECTED PRN 04/30/22 06/04/22 History (0.083 %) solution for nebulization Shortness Of Breath Or Wheezing albuterol sulfate 5 mg/mL(0.5 %) 2.5 mg inhalation DIRECTED PRN 04/30/22 06/04/22 History solution for nebulization Shortness Of Breath Or Wheezing aspirin 81 mg chewable tablet 81 mg PO DAILY 04/30/22 06/04/22 History atorvastatin 80 mg tablet 80 mg PO DAILY 04/30/22 06/04/22 History budesonide-formoterol HFA 160 2 puff inhalation BID 04/30/22 06/04/22 History mcg-4.5 mcg/actuation aerosol inhaler dulaglutide 4.5 mg/0.5 mL 4.5 mg subcut .Q MON 04/30/22 06/04/22 History subcutaneous pen injector (Trulicity) escitalopram oxalate 20 mg tablet 20 mg PO DAILY 04/30/22 06/04/22 History fluticasone propionate 50 2 spray intranasal DAILY 04/30/22 06/04/22 History mcg/actuation nasal spray,suspension (Flonase Allergy Relief) furosemide 20 mg tablet 20 mg PO DAILY PRN .LOWER 04/30/22 06/04/22 History EXTREMITY SWELLING gabapentin 300 mg capsule 300 mg PO BID 04/30/22 06/04/22 History gabapentin 300 mg capsule 600 mg PO QPM 04/30/22 06/04/22 History insulin aspart U-100 100 unit/mL See Rx Instructions .Route .COMPLEX 04/30/22 06/04/22 History (3 mL) subcutaneous pen (Novolog Flexpen U-100 Insulin aspart) insulin glargine 100 unit/mL (3 40 unit subcut HS 04/30/22 06/04/22 History mL) subcutaneous pen (Lantus Solostar U-100 Insulin) isosorbide mononitrate 30 mg 30 mg PO DAILY 04/30/22 06/04/22 History tablet,extended release 24 hr lactulose 10 gram/15 mL oral 30 ml PO TID 04/30/22 06/04/22 History solution lidocaine-prilocaine 2.5 %-2.5 % 1 applic topical DIRECTED PRN 04/30/22 06/04/22 History topical cream MEDI-PORT nadolol 40 mg tablet 40 mg PO DAILY 04/30/22 06/04/22 History oxybutynin chloride 5 mg tablet 5 mg PO BID 04/30/22 06/04/22 History pantoprazole 20 mg tablet,delayed 40 mg PO BID 04/30/22 06/04/22 History release potassium chloride 10 mEq 10 meq PO DAILY 04/30/22 06/04/22 History tablet,extended release silver sulfadiazine 1 % topical 1 applic topical DAILY apply to 04/30/22 06/04/22 History cream wound spironolactone 25 mg tablet 50 mg PO DAILY 04/30/22 06/04/22 History trazodone 50 mg tablet 50 mg PO HS 04/30/22 06/04/22 History cefdinir 300 mg capsule 300 mg PO BID 10 days #20 caps 05/30/22 06/04/22 Rx levothyroxine 150 mcg tablet 150 mcg PO DAILY 06/04/22 06/04/22 History metformin 500 mg tablet,extended 500 mg PO DAILY 06/04/22 06/04/22 History release 24 hr sulfamethoxazole 800 1 tab PO BID 06/04/22 06/04/22 History mg-trimethoprim 160 mg tablet Past Med/Surg History Medical History Ambulatory dysfunction Asthma DOES NOT USE INH. REPORTS USING NEB TREATMENTS BID. Bilateral lower extremity edema Cardiac murmur does not follow w/ cardio; echo 11/2017 [place] Cerebral palsy Chronic back pain Chronic pain Dark stools Diplopia reports intermittent x 1-2 weeks. pt reports PCP aware and scheduled for brain MRI 03/11 at [place]. 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 Major depressive disorder, recurrent, moderate Morbid obesity with BMI of 50.0-59.9, adult Obstructive sleep apnea CPAP + OXYGEN AT 2 LPM @ NIGHT On home oxygen therapy 2 LPM @ NIGHT + CPAP Osteoarthritis Pancreatic cyst Poor historian SOB (shortness of breath) on exertion Venous insufficiency Wheelchair bound Surgical History H/O wisdom tooth extraction History of Achilles tendon repair History of section History of colonoscopy History of dilatation and curettage History of esophagogastroduodenoscopy (EGD) EUS 02/22/2019 [facility] History of hip surgery History of strabismus surgery History of tooth extraction Family History Father Family history of diabetes mellitus Myocardial infarction, Onset Age: 61 Mother Myocardial infarction, Onset Age: 72 Sister Myocardial infarction Social History Smoking Status: Never smoker Second Hand Exposure: No; Hx Alcohol Use: No Hx Substance Use: No Preferred Language: Burkinan Communication Ability: Effective Operators 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 Required: No Beliefs That Will Affect Care: None marital status: Current Living Situation: Spouse Current Living Situation Comment: Reports home health assists 5 times a week Feels Safe at Home: Yes Assistive Devices: CPAP, Denture - Upper, Denture - Lower, Mechanical Lift, Oxygen - at Night and Wheelchair Assistive Devices Comment: Dentures not at hospital Review of Systems Review of Systems: As per HPI, all other systems reviewed and negative Physical Exam Physical Exam: GENERAL: uncomfortable, slightly anxious, obese, no respiratory distress SKIN: Pallor, warm HEENT: Pale palpebral conjunctivae, no ptosis, dry buccal mucosa NECK : Supple, short neck, no tenderness CHEST : Decreased breath sounds , no tenderness HEART : RRR, no obvious murmurs ABDOMEN: Marked distention, central abdominal tenderness BACK : Low back tenderness, limited leg raises (chronic as per patient) EXTREMITIES : Bilateral LE swelling, no LE tenderness, no other conspicuous deformities noted NEUROLOGIC : Coherent, no facial asymmetry, gait and stance not assessed Results & Data Results & Data ([facility]) Vital Signs (Past 12 Hours) Vital Signs Temp Pulse Resp BP Pulse Ox O2 Del Method 06/04/22 18:30 60 15 06/04/22 18:30 117/79 06/04/22 18:00 65 22 06/04/22 18:00 116/67 06/04/22 17:36 96 Room Air 06/04/22 16:28 36.5 C 79 14 114/65 93 Room Air Laboratory Results Laboratory Results WBC 3.44 K/ul (4.8-10.8) L 06/04/22 17:25 RBC 2.99 M/uL (3.93-5.22) L 06/04/22 17:25 Hgb 11.1 g/dl (12.0-16.0) L 06/04/22 17:25 Hct 33.4 % (34.1-44.9) L 06/04/22 17:25 MCV 111.7 fL (80.0-100.0) H 06/04/22 17:25 MCH 37.1 pg (25.0-34.0) H 06/04/22 17:25 MCHC 33.2 g/dL (32.0-36.0) 06/04/22 17:25 RDW Std Deviation 76.2 fL (36.4-46.3) H 06/04/22 17:25 RDW Coeff of Bradley 18.2 % (11.5-14.5) H 06/04/22 17:25 Plt Count 76 K/uL (130-400) L 06/04/22 17:25 MPV 13.7 fL (9.4-12.3) H 06/04/22 17:25 Immature Gran % (Auto) 0.3 % 06/04/22 17:25 Neut % (Auto) 57.5 % 06/04/22 17:25 Lymph % (Auto) 19.8 % 06/04/22 17:25 Sandoval % (Auto) 12.2 % 06/04/22 17:25 Eos % (Auto) 9.0 % 06/04/22 17:25 Baso % (Auto) 1.2 % 06/04/22 17:25 Neut # (Auto) 1.98 K/uL (1.4-6.5) 06/04/22 17:25 Lymph # (Auto) 0.68 K/uL (1.2-3.4) L 06/04/22 17:25 Sandoval # (Auto) 0.42 K/uL (0.24-0.82) 06/04/22 17:25 Eos # (Auto) 0.31 K/uL (0-0.50) 06/04/22 17:25 Baso # (Auto) 0.04 K/uL (0-0.2) 06/04/22 17:25 Immature Gran # (Auto) 0.01 K/uL (0.00-0.02) 06/04/22 17:25 Platelet Estimate Decreased (Normal) L 06/04/22 17:25 Sodium 135 mmol/L (136-145) L 06/04/22 17:25 Potassium 4.9 mmol/L (3.5-5.1) 06/04/22 17:25 Chloride 107 mmol/L (98-107) 06/04/22 17:25 Carbon Dioxide 24 mmol/L (21-32) 06/04/22 17:25 Anion Gap 4 (3-11) 06/04/22 17:25 BUN 17 mg/dl (6-23) 06/04/22 17:25 Creatinine 0.79 mg/dl (0.6-1.2) 06/04/22 17:25 Est Cr Clr Drug Dosing Not Reportable 06/04/22 17:25 Est GFR ( Amer) 89.8 ml/min 06/04/22 17:25 Est GFR (Non-Af Amer) 77.5 ml/min 06/04/22 17:25 BUN/Creatinine Ratio 21.5 (10-20) H 06/04/22 17:25 Glucose 219 mg/dl (70-99(Fasting)) H 06/04/22 17:25 Lactate 1.5 mmol/L (0.4-2.0) 06/04/22 17:25 Calcium 9.0 mg/dl (8.5-10.1) 06/04/22 17:25 Magnesium 2.0 mg/dl (1.7-2.4) 06/04/22 17:25 Total Bilirubin 1.4 mg/dl (0.2-1.0) H 06/04/22 17:25 AST 66 U/L (13-39) H 06/04/22 17:25 ALT 52 U/L (7-52) 06/04/22 17:25 Alkaline Phosphatase 108 U/L (34-104) H 06/04/22 17:25 Ammonia 77.0 umol/L (18-72) H 06/04/22 17:25 Total Creatine Kinase 590 U/L (26-192) H 06/04/22 17:25 Troponin I High Sens 7.1 pg/ml (0-14) 06/04/22 17:25 Total Protein 6.4 gm/dl (6.0-8.3) 06/04/22 17:25 Albumin 3.2 gm/dl (3.4-5.0) L 06/04/22 17:25 Globulin 3.2 gm/dl (2.5-4.0) 06/04/22 17:25 Albumin/Globulin Ratio 1.0 (0.9-2) 06/04/22 17:25 Lipase 37 U/L (11-82) 06/04/22 17:25 Procalcitonin 0.11 ng/ml (0-0.5) 06/04/22 17:25 TSH 0.034 uIu/ml (0.300-4.500) L 06/04/22 17:25 Free T4 1.58 ng/dl (0.61-1.60) 06/04/22 17:25 SARS-CoV-2, RNA, NAAT NEGATIVE (NEGATIVE) 06/04/22 17:25 Impressions Chest X-Ray 06/04/22 16:49 XR chest 1V portable, XR KUB/Abdomen 1 view HISTORY: 67 years-old Female weakness acute weakness COMPARISON: CT abdomen and pelvis 05/29/2022, chest radiograph 05/22/2022 TECHNIQUE: AP view of the chest with KUB radiograph FINDINGS: CHEST: Right IJ central venous catheter is unchanged. Moderate cardiomegaly. No pneumothorax or large pleural effusion. Mild subsegmental bibasilar densities favoring atelectasis. Degenerative changes of the shoulders and spine. KUB: Moderate fecal retention with nonobstructive bowel gas pattern. IUD of the mid uterus. Renal shadows are obscured by bowel gas. No renal or ureteral calculi identified by radiography. Electronic device projects over the right midabdomen. Degenerative changes of the spine, pelvis and hips. IMPRESSION: 1. Cardiomegaly without acute process of the chest. 2. Nonobstructive bowel gas pattern. 3. Moderate fecal retention. ACT 112: Negative or not required by law. The above report was generated using voice recognition software. It may contain grammatical, syntax or spelling errors. Electronically signed by: Serg Torres M.D. 06/04/2022 6:22 PM KUB X-Ray 06/04/22 16:50 XR chest 1V portable, XR KUB/Abdomen 1 view HISTORY: 67 years-old Female weakness acute weakness COMPARISON: CT abdomen and pelvis 05/29/2022, chest radiograph 05/22/2022 TECHNIQUE: AP view of the chest with KUB radiograph FINDINGS: CHEST: Right IJ central venous catheter is unchanged. Moderate cardiomegaly. No pneumothorax or large pleural effusion. Mild subsegmental bibasilar densities favoring atelectasis. Degenerative changes of the shoulders and spine. KUB: Moderate fecal retention with nonobstructive bowel gas pattern. IUD of the mid uterus. Renal shadows are obscured by bowel gas. No renal or ureteral calculi identified by radiography. Electronic device projects over the right midabdomen. Degenerative changes of the spine, pelvis and hips. IMPRESSION: 1. Cardiomegaly without acute process of the chest. 2. Nonobstructive bowel gas pattern. 3. Moderate fecal retention. ACT 112: Negative or not required by law. The above report was generated using voice recognition software. It may contain grammatical, syntax or spelling errors. Electronically signed by: Serg Torres M.D. 06/04/2022 6:22 PM Diagnostic Findings EKG as per my interpretation : Rate 75, NSR, LAD, LAFB, inferior infarct Code Status & VTE Plan VTE Prophylaxis Plan VTE Prophylaxis will be ordered: Yes
[2022-06-04] MEDS ORDERED: OPTIRAY 300 500mL IV ONE (21:17)
--- NOTE | 2022-06-04 21:37 | CT Scan Report ---
ABDOMEN AND PELVIS CT WITH IV CONTRAST CT DOSE: 1528.82 mGy.cm HISTORY: Acute generalized abdominal pain worsening abd pain TECHNIQUE: Multiaxial CT images of the abdomen and pelvis were performed following the IV administrat ion of 88 cc of Optiray, A dose lowering technique was utilized adhering to the principles of ALARA. COMPARISON STUDY: CT abdomen and pelvis 05/29/2022 FINDINGS: Cardiomegaly. [id number] catheter distal tip noted within the right atrium. Mild subsegmental righ t basilar atelectasis. No pneumatosis or pneumoperitoneum. Spleen is enlarged, 14.3 cm in length. Unr emarkable pancreas and adrenal glands. Mild distention of the gallbladder. Cirrhotic morphology of th e liver. Trace abdominal ascites. Upper abdominal varicosities. Patency of the hepatic and portal vei ns. 4 mm nonobstructing calculus of the superior pole right kidney. There is symmetric enhancement of the kidneys. The previously noted nonobstructing right renal calculus is no longer identified. Mild urot helial thickening and enhancement of the right renal collecting system. Urinary bladder wall thickeni ng with mild perivesicular stranding. Satisfactory positioning of the intrauterine device. Subcentime ter cystic foci are noted within the ovaries. Atherosclerosis of the aorta without aneurysm. There is no lymphadenopathy identified. No bowel obstruction. Mild wall thickening of the rectum is likely secondary to partial distention. M oderate fecal retention. Colonic diverticulosis. Normal appendix. Unremarkable soft tissues. Degenera tive changes of the spine, pelvis and hips. IMPRESSION: 1. No bowel obstruction or bowel wall thickening. Normal appendix. 2. Cirrhosis with splenomegaly and varicosities redemonstrated suggestive of portal venous hypertensi on. Trace abdominal pelvic ascites redemonstrated. 3. Nonobstructing left renal calculus. 4. Mild urothelial thickening of the right renal collecting system. Correlate with urinalysis to excl ude infection. 5. Moderate fecal retention. ACT 112: Negative or not required by law. The above report was generated using voice recognition software. It may contain grammatical, syntax o r spelling errors. Electronically signed by: Serg Torres M.D. 06/04/2022 9:35 PM
[2022-06-04] MEDS ORDERED: LINACLOTIDE 145 MCG CAPSULE PO STA (21:43)
[2022-06-04] MEDS ORDERED: LANTUS PER UNIT CHARGE SQ SCH (21:45)
[2022-06-04] MEDS ORDERED: LIDOCAINE/PRILOCAINE 2.5% EA CRM EXT PRN (21:52)
[2022-06-04] MEDS ORDERED: GLUCAGON FOR INJ 1 MG VIAL IM PRN (22:00)
[2022-06-04] MEDS ORDERED: CARBOHYDRATES FOR HYPOGLYCEMIA PO PRN (22:00)
[2022-06-04] MEDS ORDERED: GLUCOSE 10 TAB/TUBE PO PRN (22:00)
[2022-06-04] MEDS ORDERED: GLUCOSE 40% GEL 15 GM TUBE PO PRN (22:00)
[2022-06-04] MEDS ORDERED: DEXTROSE 50% 50 ML SYRINGE IV PRN (22:00)
[2022-06-04] MEDS: LANTUS PER UNIT CHARGE SQ SCH (22:58)
[2022-06-04] MEDS: HEPARIN 100 UNIT/ML 5ML FLUSH FLUSH PRN (23:00)
[2022-06-04] MEDS: traZODone HCL 50 MG TAB PO SCH (23:01)
[2022-06-04] MEDS: GABAPENTIN 300 MG CAP PO SCH (23:01)
[2022-06-04] MEDS: OXYBUTYNIN CHLORIDE 5 MG TAB PO SCH (23:03)
[2022-06-04] MEDS: LACTULOSE SYRUP 30 GM/45 ML UDP PO SCH (23:03)
[2022-06-04] MEDS: PANTOprazole 40 MG TAB PO SCH (23:04)
[2022-06-04 23:27] LABS: Appearance Urine Clear (Clear); Bacteria Urine Automated Negative (Negative); Bilirubin Urine Negative (Negative); Blood Urine 3+ (Negative); Color Urine Yellow; Epithelial Cell Urine Auto >30 /lpf (0-5); Glucose Urine UA Negative (Negative); Ketones Urine Negative (Negative); Leukocyte Esterase Urine 1+ (Negative); Nitrite Urine Negative (Negative); Protein Urine Negative (Negative); RBC Urine Automated >30 /hpf (0-4); Specific Gravity Urine 1.041 (1.000-1.030); Urobilinogen Urine Positive (Negative)
[2022-06-05] MEDS: traMADol HCL 50 MG TABLET PO PRN (05:21)
[2022-06-05] MEDS ORDERED: LEVOTHYROXINE SODIUM 150 MCG TABLET PO SCH (06:30)
[2022-06-05 08:01] LABS: Basophils # (auto) 0.04 K/uL (0-0.2); Basophils % (auto) 1.1 %; Eosinophils # (auto) 0.26 K/uL (0-0.50); Eosinophils % (auto) 7.3 %; Hematocrit (blood only) 33.3 % (34.1-44.9); Hemoglobin 10.9 g/dl (12.0-16.0); Immature Granulocytes # (auto) 0.01 K/uL (0.00-0.02); Immature Granulocytes % (auto) 0.3 %; Lymphocytes # (auto) 0.75 K/uL (1.2-3.4); Mean Platelet Volume 12.2 fL (9.4-12.3); Monocytes # (auto) 0.42 K/uL (0.24-0.82); Monocytes % (auto) 11.8 %; Neutrophils # (auto) 2.09 K/uL (1.4-6.5); Neutrophils % (auto) 58.5 %; Platelet Count 73 K/uL (130-400); White Blood Count 3.57 K/ul (4.8-10.8)
[2022-06-05] MEDS: HEPARIN 100 UNIT/ML 5ML FLUSH FLUSH PRN (08:13)
[2022-06-05 08:22] LABS: Echinocytes 1+; Mean Corpuscular Hemoglobin 36.8 pg (25.0-34.0); Mean Corpuscular Hgb Conc 32.7 g/dL (32.0-36.0); Mean Corpuscular Volume 112.5 fL (80.0-100.0); Ovalocytes 1+; Polychromasia 1+; RDW Coefficient of Variation 18.1 % (11.5-14.5); Red Blood Count 2.96 M/uL (3.93-5.22); Tear Drop Cells 1+
[2022-06-05] MEDS: SULFAMETHOXAZOLE/TRIMETHOPRIM DS 800/160MG TAB PO SCH ×2 (08:32→20:18)
[2022-06-05] MEDS: PANTOprazole 40 MG TAB PO SCH ×2 (08:32→20:19)
[2022-06-05] MEDS: LINACLOTIDE 145 MCG CAPSULE PO SCH (08:33)
[2022-06-05] MEDS: OXYBUTYNIN CHLORIDE 5 MG TAB PO SCH ×2 (08:33→20:20)
[2022-06-05] MEDS: ISOSORBIDE MONO EXTENDED REL 30 MG TABCR PO SCH (08:33)
[2022-06-05] MEDS: ESCITALOPRAM OXALATE 20 MG TAB PO SCH (08:34)
[2022-06-05] MEDS: ATORVASTATIN 40 MG TAB PO SCH (08:34)
[2022-06-05] MEDS: GABAPENTIN 300 MG CAP PO SCH ×3 (08:34→20:19)
[2022-06-05] MEDS: ASPIRIN 81 MG ECTAB PO SCH (08:34)
[2022-06-05] MEDS ORDERED: PNEUMOCOCCAL POLYSACCHARIDES 25 MCG/0.5 ML VIAL/SYR IM ONE (09:00)
[2022-06-05 09:07] LABS: Albumin Globulin Ratio 1.1 (0.9-2); Albumin Level 3.5 gm/dl (3.4-5.0); BUN Creatinine Ratio 17.1 (10-20); Bilirubin,Total 1.6 mg/dl (0.2-1.0); Calcium 9.3 mg/dl (8.5-10.1); Creatinine Clr Calc Pharmacy 75.7 ml/min; Est GFR (African American) 94.1 ml/min; Est GFR (Non-African American) 81.2 ml/min; Globulin 3.1 gm/dl (2.5-4.0); Potassium 3.9 mmol/L (3.5-5.1); Total Protein 6.6 gm/dl (6.0-8.3)
[2022-06-05] MEDS: LACTULOSE SYRUP 30 GM/45 ML UDP PO SCH ×3 (09:26→20:20)
[2022-06-05] MEDS: FLUTICASONE/VILANTEROL 100/25MCG 14 PUFFS/INHALER INH SCH (09:27)
[2022-06-05] MEDS: FLUTICASONE PROPIONATE NA SPR 16 GM BTL SCH (09:27)
[2022-06-05] MEDS: nadoloL 40 MG TAB PO SCH (11:18)
--- NOTE | 2022-06-05 15:09 | Hospitalist Progress Note ---
Date of Service June 05, 2022 Assessment & Plan (1) Abdominal pain: Plan 67-year-old class III obese patient with PMH of T2DM, acquired hypothyroidism, restrictive lung disease, THAD on CPAP, asthma, esophageal varices, cirrhosis of liver, portal hypertensive gastropathy, NG, vitamin D deficiency, GERD, chronic diastolic heart failure, HTN, venous stasis dermatitis of both lower extremities, urinary incontinence due to immobility, DDD lumbar region, fibromyalgia, cerebral palsy, chronic pain syndrome, thrombocytopenia, ALEC due to chronic blood loss, pancytopenia, recurrent MDD, spinal stenosis of lumbar region without neurogenic claudication, lymphedema, wheelchair dependent, primary insomnia, impaired mobility and ADLs, history of MRSA presented to our ED 06/04 worsening abdominal pain [that started 1 week INFORMATION SYSTEMS CONSULTANT likely secondary to UTI] likely secondary to constipation versus delayed appropriate treatment for UTI. Patient was initially seen 1 week ago INFORMATION SYSTEMS CONSULTANT for abdominal pain, symptoms attributed to UTI, patient started on cefdinir course, urine culture later grew MRSA, patient's antibiotic was changed to Bactrim few days prior to arrival. Of note, recent confinement was last month for hepatic encephalopathy. Patient being managed for the following: Abdominal pain Complicated UTI Constipation Patient presenting with abdominal pain, see above. Patient also complained of chills at home and constipation prior to arrival. Patient was reported to not take Linzess lately. Lactulose and Linzess started, patient with bowel movement, improving belly pain. Continue with Bactrim 06/05 for UTI, continue to monitor. Follow admitting urine and blood culture. Holding spironolactone and potassium supplementation while on Bactrim given high normal potassium at admission. h/o NG cirrhosis h/o hepatic encephalopathy h/o esophageal varices h/o portal hypertensive gastropathy Continue with lactulose and Linzess Continue with nadolol [upon OP chart review it has associated diagnosis of hypertension but it can be used in portal hypertension/esophageal varices as well], patient to bring her home nadolol as our pharmacy does not carry it, per RN patient's daughter has been requested to bring nadolol and her daughter had agreed. Patient on propanolol until nadolol is available. Mild elevation of CPK/history of HLD: Trend CPK, hold statin. Hypothyroidism: Admitting TSH low with a 4 normal free T4. We will decrease home levothyroxine dose to 125 MCG daily, repeat thyroid function test in 6 weeks, coordinate with PCP. Possible functional disability: Likely secondary to class III obesity and multiple comorbidities. PT/OT, likely will need rehab. Other chronic medical conditions: Asthma/restrictive lung disease, fibromyalgia, HTN, THAD and CPAP, DM2 [A1c 7.13 April 2022], chronic pancytopenia secondary to cirrhosis, cerebral palsy --->> continue with/resume home meds as and when appropriate. Patient on sliding scale insulin. Uses Lasix as needed for swelling, will use as scheduled for now and monitor on a daily basis DVT prophylaxis: SCDs/thrombocytopenic. Full code Disposition: PT/OT, CM to assist with DC planning, patient will likely need placement. Patient's Mr. Syed Bustos [[phone]] Admission and Anticipated Discharge Date Admission Date: June 04, 2022 Subjective Patient seen and examined at bedside as a follow-up of abdominal pain multifactorial [likely constipation, persistent UTI] and possible functional disability. Patient was lying in bed, on room air, reports having multiple bowel movement overnight after lactulose dose, rectal tube in place, reports improvement in her belly pain, patient is on clear diet which can be advanced as tolerated, patient denies any headache or dizziness or chest pain or sore throat or cough or fever or other review of symptoms. Physical Exam Physical Exam: GENERAL: Alert and oriented x3. NAD, on RA. Class III obese. HEENT: No pallor, no icterus. Pupils equal, round and reactive to light. Oral mucosa moist. NECK: No JVD, no neck masses. HEART: S1 and S2 heard. Regular rate and rhythm. No murmur, no gallop. RESPIRATORY SYSTEM: Normal AP diameter. No accessory muscle use. No wheezing, no crackles. ABDOMEN: Soft, bowel sounds present, nontender, no distention. Rectal tube in place. CENTRAL NERVOUS SYSTEM: No facial droop. Speech is clear. Obeys simple commands. Moves extremities. EXTREMITIES: Trace BLE edema, chronic skin changes noted BLE. Results & Data Results & Data ([facility]) Vital Signs (Past 12 Hours) Vital Signs Temp Pulse Pulse Resp BP Pulse Ox O2 Del Method 06/05/22 12:29 Room Air 06/05/22 07:45 36.6 C 61 20 101/59 L 95 Room Air 06/05/22 04:30 64 27 H 96
--- NOTE | 2022-06-05 19:20 | Electrocardiogram Report ---
Test Reason : Blood Pressure : / mmHG Vent. Rate : 073 BPM Atrial Rate : 073 BPM P-R Int : 200 ms QRS Dur : 086 ms QT Int : 408 ms P-R-T Axes : 005 -22 032 degrees QTc Int : 449 ms Normal sinus rhythm Low voltage QRS Possible Lateral infarct (cited on or before 09-AUG-2021) Inferior infarct (cited on or before 16-JUL-2021) Abnormal ECG When compared with ECG of 22-MAY-2022 19:13, ME interval has decreased Questionable change in initial forces of Anterolateral leads Confirmed by Joel Kim ([id number]) on 06/05/2022 7:20:22 PM Referred By: REFERRED SELF Confirmed By:Joel Kim
[2022-06-05] MEDS: PROPRANOLOL HCL 20 MG TAB PO SCH (20:15)
[2022-06-05] MEDS: traZODone HCL 50 MG TAB PO SCH (20:15)
[2022-06-05] MEDS: LANTUS PER UNIT CHARGE SQ SCH (21:22)
[2022-06-06] MEDS: LEVOTHYROXINE SODIUM 125 MCG TABLET PO SCH (05:29)
[2022-06-06] MEDS: HEPARIN 100 UNIT/ML 5ML FLUSH FLUSH PRN (05:33)
[2022-06-06 05:47] LABS: Hematocrit (blood only) 29.7 % (34.1-44.9); Hemoglobin 9.7 g/dl (12.0-16.0)
[2022-06-06 06:06] LABS: BUN Creatinine Ratio 16.7 (10-20); Calcium 8.6 mg/dl (8.5-10.1); Creatinine Clr Calc Pharmacy 68.5 ml/min; Est GFR (African American) 83.4 ml/min; Est GFR (Non-African American) 71.9 ml/min; Magnesium 1.9 mg/dl (1.7-2.4)
[2022-06-06 06:32] LABS: Mean Corpuscular Hemoglobin 37.2 pg (25.0-34.0); Mean Corpuscular Hgb Conc 32.7 g/dL (32.0-36.0); Mean Corpuscular Volume 113.8 fL (80.0-100.0); Mean Platelet Volume 13.7 fL (9.4-12.3); Platelet Count 62 K/uL (130-400); RDW Coefficient of Variation 17.9 % (11.5-14.5); RDW Standard Deviation 75.2 fL (36.4-46.3); Red Blood Count 2.61 M/uL (3.93-5.22)
[2022-06-06] MEDS: PANTOprazole 40 MG TAB PO SCH ×2 (09:25→22:02)
[2022-06-06] MEDS: PROPRANOLOL HCL 20 MG TAB PO SCH ×2 (09:26→22:03)
[2022-06-06] MEDS: SULFAMETHOXAZOLE/TRIMETHOPRIM DS 800/160MG TAB PO SCH ×2 (09:26→22:02)
[2022-06-06] MEDS: FUROSEMIDE 20 MG TAB PO SCH (09:26)
[2022-06-06] MEDS: FLUTICASONE/VILANTEROL 100/25MCG 14 PUFFS/INHALER INH SCH (09:27)
[2022-06-06] MEDS: OXYBUTYNIN CHLORIDE 5 MG TAB PO SCH ×2 (09:27→22:03)
[2022-06-06] MEDS: FLUTICASONE PROPIONATE NA SPR 16 GM BTL SCH (09:28)
[2022-06-06] MEDS: LACTULOSE SYRUP 30 GM/45 ML UDP PO SCH ×3 (09:28→22:02)
[2022-06-06] MEDS: ASPIRIN 81 MG ECTAB PO SCH (09:29)
[2022-06-06] MEDS: LINACLOTIDE 145 MCG CAPSULE PO SCH (09:29)
[2022-06-06] MEDS: GABAPENTIN 300 MG CAP PO SCH ×4 (09:30→22:03)
[2022-06-06] MEDS: ESCITALOPRAM OXALATE 20 MG TAB PO SCH (09:30)
[2022-06-06] MEDS: ISOSORBIDE MONO EXTENDED REL 30 MG TABCR PO SCH (09:31)
[2022-06-06] MEDS: ATORVASTATIN 40 MG TAB PO SCH (09:32)
--- NOTE | 2022-06-06 14:35 | Hospitalist Progress Note ---
Date of Service June 06, 2022 Assessment & Plan (1) Abdominal pain: Plan 67-year-old class III obese patient with PMH of T2DM, acquired hypothyroidism, restrictive lung disease, THAD on CPAP, asthma, esophageal varices, cirrhosis of liver, portal hypertensive gastropathy, NG, vitamin D deficiency, GERD, chronic diastolic heart failure, HTN, venous stasis dermatitis of both lower extremities, urinary incontinence due to immobility, DDD lumbar region, fibromyalgia, cerebral palsy, chronic pain syndrome, thrombocytopenia, ALEC due to chronic blood loss, pancytopenia, recurrent MDD, spinal stenosis of lumbar region without neurogenic claudication, lymphedema, wheelchair dependent, primary insomnia, impaired mobility and ADLs, history of MRSA presented to our ED 06/04 worsening abdominal pain [that started 1 week [employer] likely secondary to UTI] likely secondary to constipation versus delayed appropriate treatment for UTI. Patient was initially seen 1 week ago [employer] for abdominal pain, symptoms attributed to UTI, patient started on cefdinir course, urine culture later grew MRSA, patient's antibiotic was changed to Bactrim few days prior to arrival. Of note, recent confinement was last month for hepatic encephalopathy. Patient being managed for the following: Abdominal pain Complicated UTI Constipation Patient presenting with abdominal pain, see above. Patient also complained of chills at home and constipation prior to arrival. Patient was reported to not take Linzess lately. Lactulose and Linzess started, patient with bowel movement, improving belly pain. Continue with Bactrim 06/05 for UTI, continue to monitor. Urine culture and b lood culture negative for any growth since the hospitalization. We will discontinue Bactrim after a 5-day course. Holding spironolactone and potassium supplementation while on Bactrim given high normal potassium at admission. h/o NG cirrhosis h/o hepatic encephalopathy h/o esophageal varices h/o portal hypertensive gastropathy Continue with lactulose and Linzess Continue with nadolol [upon OP chart review it has associated diagnosis of hypertension but it can be used in portal hypertension/esophageal varices as well], patient to bring her home nadolol as our pharmacy does not carry it, per RN patient's daughter has been requested to bring nadolol and her daughter had agreed. Patient on propanolol until nadolol is available. Mild elevation of CPK/history of HLD: Trend CPK, hold statin. Hypothyroidism: Admitting TSH low with a 4 normal free T4. We will decrease home levothyroxine dose to 125 MCG daily, repeat thyroid function test in 6 weeks, coordinate with PCP. Pancytopenia likely related to portal hypertension/cirrhosis. Possible functional disability: Likely secondary to class III obesity and multiple comorbidities. PT/OT, likely will need rehab. Patient prefers going back home; has caregiver 5 times a week. is agreeable for patient to return back home. Other chronic medical conditions: Asthma/restrictive lung disease, fibromyalgia, HTN, THAD and CPAP, DM2 [A1c 7.13 April 2022], chronic pancytopenia secondary to cirrhosis, cerebral palsy --->> continue with/resume home meds as and when appropriate. Patient on sliding scale insulin. Uses Lasix as needed for swelling, will use as scheduled for now and monitor on a daily basis DVT prophylaxis: SCDs/thrombocytopenic. Full code Disposition: PT/OT, CM to assist; likely dc back home. Patient's Mr. Syed Bustos [[phone]] Admission and Anticipated Discharge Date Admission Date: June 06, 2022 Subjective Patient seen and examined at bedside. Her abdominal pain is improved compared to presentation. She continues to have multiple episode of bowel movements. Review of Systems Review of Systems: All systems reviewed & are unremarkable except as noted in Subjective Physical Exam Physical Exam: GENERAL: Alert and oriented x3. NAD, on RA. Class III obese. HEENT: No pallor, no icterus. Pupils equal, round and reactive to light. Oral mucosa moist. NECK: No JVD, no neck masses. HEART: S1 and S2 heard. Regular rate and rhythm. No murmur, no gallop. RESPIRATORY SYSTEM: Normal AP diameter. No accessory muscle use. No wheezing, no crackles. ABDOMEN: Soft, bowel sounds present, nontender, no distention. Rectal tube in place. CENTRAL NERVOUS SYSTEM: No facial droop. Speech is clear. Obeys simple commands. Moves extremities. EXTREMITIES: Trace BLE edema, chronic skin changes noted BLE. Results & Data Results & Data ([facility]) Vital Signs (Past 12 Hours) Vital Signs Temp Pulse Resp BP Pulse Ox O2 Del Method 06/06/22 08:17 Room Air 06/06/22 07:50 36.6 C 56 L 16 102/64 95 Room Air 06/06/22 03:50 25 H Laboratory Results Laboratory Results WBC 2.90 K/ul (4.8-10.8) L 06/06/22 05:27 RBC 2.61 M/uL (3.93-5.22) L 06/06/22 05:27 Hgb 9.7 g/dl (12.0-16.0) L 06/06/22 05:27 Hct 29.7 % (34.1-44.9) L 06/06/22 05:27 MCV 113.8 fL (80.0-100.0) H 06/06/22 05:27 MCH 37.2 pg (25.0-34.0) H 06/06/22 05:27 MCHC 32.7 g/dL (32.0-36.0) 06/06/22 05:27 RDW Std Deviation 75.2 fL (36.4-46.3) H 06/06/22 05:27 RDW Coeff of Bradley 17.9 % (11.5-14.5) H 06/06/22 05:27 Plt Count 62 K/uL (130-400) L 06/06/22 05:27 MPV 13.7 fL (9.4-12.3) H 06/06/22 05:27 Immature Gran % (Auto) 0.3 % 06/05/22 07:34 Neut % (Auto) 58.5 % 06/05/22 07:34 Lymph % (Auto) 21.0 % 06/05/22 07:34 Graves % (Auto) 11.8 % 06/05/22 07:34 Eos % (Auto) 7.3 % 06/05/22 07:34 Baso % (Auto) 1.1 % 06/05/22 07:34 Neut # (Auto) 2.09 K/uL (1.4-6.5) 06/05/22 07:34 Lymph # (Auto) 0.75 K/uL (1.2-3.4) L 06/05/22 07:34 Graves # (Auto) 0.42 K/uL (0.24-0.82) 06/05/22 07:34 Eos # (Auto) 0.26 K/uL (0-0.50) 06/05/22 07:34 Baso # (Auto) 0.04 K/uL (0-0.2) 06/05/22 07:34 Immature Gran # (Auto) 0.01 K/uL (0.00-0.02) 06/05/22 07:34 Platelet Estimate Decreased (Normal) L 06/04/22 17:25 Polychromasia 1+ 06/05/22 07:34 Tear Drop Cells 1+ 06/05/22 07:34 Ovalocytes 1+ 06/05/22 07:34 Echinocytes 1+ 06/05/22 07:34 Sodium 138 mmol/L (136-145) 06/06/22 05:27 Potassium 4.0 mmol/L (3.5-5.1) 06/06/22 05:27 Chloride 110 mmol/L (98-107) H 06/06/22 05:27 Carbon Dioxide 24 mmol/L (21-32) 06/06/22 05:27 Anion Gap 4 (3-11) 06/06/22 05:27 BUN 14 mg/dl (6-23) 06/06/22 05:27 Creatinine 0.84 mg/dl (0.6-1.2) 06/06/22 05:27 Est Cr Clr Drug Dosing 68.5 ml/min 06/06/22 05:27 Est GFR ( Amer) 83.4 ml/min 06/06/22 05:27 Est GFR (Non-Af Amer) 71.9 ml/min 06/06/22 05:27 BUN/Creatinine Ratio 16.7 (10-20) 06/06/22 05:27 Glucose 143 mg/dl (70-99(Fasting)) H 06/06/22 05:27 POC Glucose 238 mg/dl (70-99) H 06/05/22 21:17 Lactate 1.5 mmol/L (0.4-2.0) 06/04/22 17:25 Calcium 8.6 mg/dl (8.5-10.1) 06/06/22 05:27 Magnesium 1.9 mg/dl (1.7-2.4) 06/06/22 05:27 Total Bilirubin 1.6 mg/dl (0.2-1.0) H 06/05/22 07:34 AST 60 U/L (13-39) H 06/05/22 07:34 ALT 49 U/L (7-52) 06/05/22 07:34 Alkaline Phosphatase 100 U/L (34-104) 06/05/22 07:34 Ammonia 63.0 umol/L (18-72) 06/06/22 05:29 Total Creatine Kinase 358 U/L (26-192) H 06/06/22 05:27 Troponin I High Sens 7.1 pg/ml (0-14) 06/04/22 17:25 Total Protein 6.6 gm/dl (6.0-8.3) 06/05/22 07:34 Albumin 3.5 gm/dl (3.4-5.0) 06/05/22 07:34 Globulin 3.1 gm/dl (2.5-4.0) 06/05/22 07:34 Albumin/Globulin Ratio 1.1 (0.9-2) 06/05/22 07:34 Lipase 37 U/L (11-82) 06/04/22 17:25 Vitamin B12 1138 pg/ml (180-914) H 06/06/22 11:19 Procalcitonin 0.11 ng/ml (0-0.5) 06/04/22 17:25 TSH 0.034 uIu/ml (0.300-4.500) L 06/04/22 17:25 Free T4 1.58 ng/dl (0.61-1.60) 06/04/22 17:25 Urine Color Yellow 06/04/22 23:13 Urine Appearance Clear (Clear) 06/04/22 23:13 Urine pH 6.0 (4.5-7.5) 06/04/22 23:13 Ur Specific [place] 1.041 (1.000-1.030) H 06/04/22 23:13 Urine Protein Negative (Negative) 06/04/22 23:13 Urine Glucose (UA) Negative (Negative) 06/04/22 23:13 Urine Ketones Negative (Negative) 06/04/22 23:13 Urine Blood 3+ (Negative) H 06/04/22 23:13 Urine Nitrite Negative (Negative) 06/04/22 23:13 Urine Bilirubin Negative (Negative) 06/04/22 23:13 Urine Urobilinogen Positive (Negative) H 06/04/22 23:13 Ur Leukocyte Esterase 1+ (Negative) H 06/04/22 23:13 Urine WBC (Auto) 10-30 /hpf (0-5) H 06/04/22 23:13 Urine RBC (Auto) >30 /hpf (0-4) H 06/04/22 23:13 U Hyaline Cast (Auto) 1-5 /lpf (0-5) 06/04/22 23:13 U Epithel Cells (Auto) >30 /lpf (0-5) H 06/04/22 23:13 Urine Bacteria (Auto) Negative (Negative) 06/04/22 23:13 Stl C. diff Tox B Gene Negative Cdiff Gene (Neg) 06/05/22 06:23 SARS-CoV-2, RNA, NAAT NEGATIVE (NEGATIVE) 06/04/22 17:25 Impressions Chest X-Ray 06/04/22 16:49 XR chest 1V portable, XR KUB/Abdomen 1 view HISTORY: 67 years-old Female weakness acute weakness COMPARISON: CT abdomen and pelvis 05/29/2022, chest radiograph 05/22/2022 TECHNIQUE: AP view of the chest with KUB radiograph FINDINGS: CHEST: Right IJ central venous catheter is unchanged. Moderate cardiomegaly. No pneumothorax or large pleural effusion. Mild subsegmental bibasilar densities favoring atelectasis. Degenerative changes of the shoulders and spine. KUB: Moderate fecal retention with nonobstructive bowel gas pattern. IUD of the mid uterus. Renal shadows are obscured by bowel gas. No renal or ureteral calculi identified by radiography. Electronic device projects over the right midabdomen. Degenerative changes of the spine, pelvis and hips. IMPRESSION: 1. Cardiomegaly without acute process of the chest. 2. Nonobstructive bowel gas pattern. 3. Moderate fecal retention. ACT 112: Negative or not required by law. The above report was generated using voice recognition software. It may contain grammatical, syntax or spelling errors. Electronically signed by: Serg Torres M.D. 06/04/2022 6:22 PM KUB X-Ray 06/04/22 16:50 XR chest 1V portable, XR KUB/Abdomen 1 view HISTORY: 67 years-old Female weakness acute weakness COMPARISON: CT abdomen and pelvis 05/29/2022, chest radiograph 05/22/2022 TECHNIQUE: AP view of the chest with KUB radiograph FINDINGS: CHEST: Right IJ central venous catheter is unchanged. Moderate cardiomegaly. No pneumothorax or large pleural effusion. Mild subsegmental bibasilar densities favoring atelectasis. Degenerative changes of the shoulders and spine. KUB: Moderate fecal retention with nonobstructive bowel gas pattern. IUD of the mid uterus. Renal shadows are obscured by bowel gas. No renal or ureteral calculi identified by radiography. Electronic device projects over the right midabdomen. Degenerative changes of the spine, pelvis and hips. IMPRESSION: 1. Cardiomegaly without acute process of the chest. 2. Nonobstructive bowel gas pattern. 3. Moderate fecal retention. ACT 112: Negative or not required by law. The above report was generated using voice recognition software. It may contain grammatical, syntax or spelling errors. Electronically signed by: Serg Torres M.D. 06/04/2022 6:22 PM Abdomen/Pelvis CT 06/04/22 20:[address] WITH IV CONTRAST CT DOSE: 1528.82 mGy.cm HISTORY: Acute generalized abdominal pain worsening abd pain TECHNIQUE: Multiaxial CT images of the abdomen and pelvis were performed following the IV administration of 88 cc of Optiray, A dose lowering technique was utilized adhering to the principles of ALARA. COMPARISON STUDY: CT abdomen and pelvis 05/29/2022 FINDINGS: Cardiomegaly. [id number] catheter distal tip noted within the right atrium. Mild subsegmental right basilar atelectasis. No pneumatosis or pneumoperitoneum. Spleen is enlarged, 14.3 cm in length. Unremarkable pancreas and adrenal glands. Mild distention of the gallbladder. Cirrhotic morphology of the liver. Trace abdominal ascites. Upper abdominal varicosities. Patency of the hepatic and portal veins. 4 mm nonobstructing calculus of the superior pole right kidney. There is symmetric enhancement of the kidneys. The previously noted nonobstructing right renal calculus is no longer identified. Mild urothelial thickening and enhancement of the right renal collecting system. Urinary bladder wall thickening with mild perivesicular stranding. Satisfactory positioning of the intrauterine device. Subcentimeter cystic foci are noted within the ovaries. Atherosclerosis of the aorta without aneurysm. There is no lymphadenopathy iden tified. No bowel obstruction. Mild wall thickening of the rectum is likely secondary to partial distention. Moderate fecal retention. Colonic diverticulosis. Normal appendix. Unremarkable soft tissues. Degenerative changes of the spine, pelvis and hips. IMPRESSION: 1. No bowel obstruction or bowel wall thickening. Normal appendix. 2. Cirrhosis with splenomegaly and varicosities redemonstrated suggestive of portal venous hypertension. Trace abdominal pelvic ascites redemonstrated. 3. Nonobstructing left renal calculus. 4. Mild urothelial thickening of the right renal collecting system. Correlate with urinalysis to exclude infection. 5. Moderate fecal retention. ACT 112: Negative or not required by law. The above report was generated using voice recognition software. It may contain grammatical, syntax or spelling errors. Electronically signed by: Serg Torres M.D. 06/04/2022 9:35 PM
[2022-06-06] MEDS: traZODone HCL 50 MG TAB PO SCH (22:02)
[2022-06-06] MEDS: LANTUS PER UNIT CHARGE SQ SCH (22:02)
[2022-06-07] MEDS: LEVOTHYROXINE SODIUM 125 MCG TABLET PO SCH (05:51)
[2022-06-07] MEDS: FLUTICASONE/VILANTEROL 100/25MCG 14 PUFFS/INHALER INH SCH (08:02)
[2022-06-07] MEDS: FLUTICASONE PROPIONATE NA SPR 16 GM BTL SCH (08:02)
[2022-06-07] MEDS: LACTULOSE SYRUP 30 GM/45 ML UDP PO SCH ×3 (08:02→20:38)
[2022-06-07] MEDS: ASPIRIN 81 MG ECTAB PO SCH (08:03)
[2022-06-07] MEDS: GABAPENTIN 300 MG CAP PO SCH ×3 (08:03→20:43)
[2022-06-07] MEDS: PANTOprazole 40 MG TAB PO SCH ×2 (08:04→20:43)
[2022-06-07] MEDS: LINACLOTIDE 145 MCG CAPSULE PO SCH (08:04)
[2022-06-07] MEDS: FUROSEMIDE 20 MG TAB PO SCH (08:04)
[2022-06-07] MEDS: PROPRANOLOL HCL 20 MG TAB PO SCH (08:05)
[2022-06-07] MEDS: ATORVASTATIN 40 MG TAB PO SCH (08:05)
[2022-06-07] MEDS: SULFAMETHOXAZOLE/TRIMETHOPRIM DS 800/160MG TAB PO SCH ×2 (08:05→20:43)
[2022-06-07] MEDS: ESCITALOPRAM OXALATE 20 MG TAB PO SCH (08:05)
[2022-06-07] MEDS: OXYBUTYNIN CHLORIDE 5 MG TAB PO SCH ×2 (08:05→20:43)
[2022-06-07] MEDS: ISOSORBIDE MONO EXTENDED REL 30 MG TABCR PO SCH (08:05)
[2022-06-07] MEDS ORDERED: DOCUSATE SODIUM 100 MG CAP PO SCH (10:00)
[2022-06-07] MEDS ORDERED: POLYETHYLENE (MIRALAX) 17 GM PACK PO SCH (10:00)
[2022-06-07] MEDS ORDERED: POLYETHYLENE (MIRALAX) 17 GM PACK PO PRN (14:23)
--- NOTE | 2022-06-07 17:20 | Hospitalist Progress Note ---
Date of Service June 07, 2022 Assessment & Plan (1) Abdominal pain: Plan 67-year-old class III obese patient with PMH of T2DM, acquired hypothyroidism, restrictive lung disease, THAD on CPAP, asthma, esophageal varices, cirrhosis of liver, portal hypertensive gastropathy, NG, vitamin D deficiency, GERD, chronic diastolic heart failure, HTN, venous stasis dermatitis of both lower extremities, urinary incontinence due to immobility, DDD lumbar region, fibromyalgia, cerebral palsy, chronic pain syndrome, thrombocytopenia, ALEC due to chronic blood loss, pancytopenia, recurrent MDD, spinal stenosis of lumbar region without neurogenic claudication, lymphedema, wheelchair dependent, primary insomnia, impaired mobility and ADLs, history of MRSA presented to our ED 06/04 worsening abdominal pain [that started 1 week [employer] likely secondary to UTI] likely secondary to constipation versus delayed appropriate treatment for UTI. Patient was initially seen 1 week ago [employer] for abdominal pain, symptoms attributed to UTI, patient started on cefdinir course, urine culture later grew MRSA, patient's antibiotic was changed to Bactrim few days prior to arrival. Of note, recent confinement was last month for hepatic encephalopathy. Patient being managed for the following: Abdominal pain Complicated UTI Constipation Patient presenting with abdominal pain, see above. Patient also complained of chills at home and constipation prior to arrival. Patient was reported to not taking Linzess lately Linzess restarted on 06/05. Patient home dose lactulose 20gm TID for history of Ng cirrhosis, reported fair compliance. Lactulose increased to 30gm TID. Patient had 3 large BMs today. On Bactrim for MRSA UTI (on day 6 including home doses prior to admission). Patient reports improvement in urinary symptoms today. Will d/c after 7 day course. Holding spironolactone and potassium supplementation while on Bactrim given high normal potassium at admission. h/o NG cirrhosis h/o hepatic encephalopathy h/o esophageal varices h/o portal hypertensive gastropathy Continue with lactulose and Linzess On nadolol at home, received propanolol while admitted due to nadolol being out of stock. Discussed with pharmacy, nadolol now available, resume per home regimen. Mild elevation of CPK CPK 590 --> 358 Outpatient follow-up Hypothyroidism: TSH on admission 0.034, normal T4 Home levothyroxine dose decreased to 125 mcg daily, repeat thyroid function test in 6 weeks Pancytopenia Likely related to portal hypertension/cirrhosis CBC stable DM type II Hgb A1c 7.5 04/2022 On Lantus, noted to be persistently hyperglycemic, will increase Lantus to 30 units HS Resume home regimen at discharge DVT prophylaxis: SCDs/thrombocytopenic. Disposition: PT/OT, CM to assist; has private duty caregivers in place and [facility] at home patient, likely dc back home. Patient's Mr. Syed Bustos [[phone]] Admission and Anticipated Discharge Date Admission Date: June 06, 2022 Supervising Physician Co-Signing Physician Notes Patient seen and examined at bedside. Agree with above assessment by Chen CRESPO. Patient continues to complain of abdominal discomfort. She did have 3 episodes of massive bowel movements in the morning. Plan is to continue bowel regimen. Discussed with her by bedside on the phone. Patient will complete course of Bactrim tomorrow for her UTI. Plan to discharge home tomorrow a.m. if patient continues to improve clinically. Subjective Follow-up for constipation, UTI. Patient seen and examined. Reports she is not feeling well this morning and does not want to be discharged. Reports intermittent RLQ abdominal cramping and states that she feels constipated again. Was able to eat a little bit of breakfast, denies nausea and vomiting. Urinary symptoms resolved. No chest pain or shortness of breath. After my exam, nursing reported patient had 3 large bowel movements. Review of Systems Review of Systems: ROS per HPI, all other systems reviewed and negative Physical Exam Constitutional: WD/WN, vitals as above + obese Respiratory: normal respiratory effort, lungs clear to auscultation Cardiovascular: Rate/Rhythm: regular rate and regular rhythm Vessels: normal peripheral pulses Extremities: no edema Gastrointestinal (Abdomen): Percussion/Palpation: abdomen soft; abdomen nontender Skin: no rashes, warm and dry Neurologic: no focal motor deficits Psychiatric: A+Ox3, euthymic affect Results & Data Results & Data ([facility]) Vital Signs (Past 12 Hours) Vital Signs Temp Pulse Resp BP Pulse Ox O2 Del Method 06/07/22 10:00 Room Air 06/07/22 15:05 37.0 C 63 16 97/59 L 90 Room Air 06/07/22 07:05 36.6 C 65 16 110/58 L 95 Room Air
[2022-06-07] MEDS: traZODone HCL 50 MG TAB PO SCH (20:42)
[2022-06-07] MEDS: traMADol HCL 50 MG TABLET PO PRN (20:49)
[2022-06-07] MEDS ORDERED: LANTUS PER UNIT CHARGE SQ SCH (21:00)
[2022-06-08] MEDS: LEVOTHYROXINE SODIUM 125 MCG TABLET PO SCH (05:30)
[2022-06-08] MEDS: HEPARIN 100 UNIT/ML 5ML FLUSH FLUSH PRN (07:46)
[2022-06-08] MEDS: FLUTICASONE PROPIONATE NA SPR 16 GM BTL SCH (07:48)
[2022-06-08] MEDS: FLUTICASONE/VILANTEROL 100/25MCG 14 PUFFS/INHALER INH SCH (07:48)
[2022-06-08] MEDS: LACTULOSE SYRUP 30 GM/45 ML UDP PO SCH (07:49)
[2022-06-08] MEDS: ESCITALOPRAM OXALATE 20 MG TAB PO SCH (07:49)
[2022-06-08] MEDS: ATORVASTATIN 40 MG TAB PO SCH (07:49)
[2022-06-08] MEDS: ASPIRIN 81 MG ECTAB PO SCH (07:49)
[2022-06-08] MEDS: GABAPENTIN 300 MG CAP PO SCH (07:49)
[2022-06-08] MEDS: FUROSEMIDE 20 MG TAB PO SCH (07:49)
[2022-06-08] MEDS: PANTOprazole 40 MG TAB PO SCH (07:50)
[2022-06-08] MEDS: ISOSORBIDE MONO EXTENDED REL 30 MG TABCR PO SCH (07:50)
[2022-06-08] MEDS: OXYBUTYNIN CHLORIDE 5 MG TAB PO SCH (07:50)
[2022-06-08] MEDS: SULFAMETHOXAZOLE/TRIMETHOPRIM DS 800/160MG TAB PO SCH (07:50)
[2022-06-08] MEDS: LINACLOTIDE 145 MCG CAPSULE PO SCH (07:50)
[2022-06-08] MEDS: nadoloL 40 MG TAB PO SCH (07:50)
[2022-06-08 07:54] LABS: Hematocrit (blood only) 31.5 % (34.1-44.9); Hemoglobin 10.5 g/dl (12.0-16.0)
[2022-06-08 08:25] LABS: Mean Corpuscular Hemoglobin 37.5 pg (25.0-34.0); Mean Corpuscular Hgb Conc 33.3 g/dL (32.0-36.0); Mean Corpuscular Volume 112.5 fL (80.0-100.0); Mean Platelet Volume 13.8 fL (9.4-12.3); Platelet Count 58 K/uL (130-400); RDW Coefficient of Variation 17.2 % (11.5-14.5); RDW Standard Deviation 71.7 fL (36.4-46.3)
[2022-06-08 08:26] LABS: Basophils # (auto) 0.03 K/uL (0-0.2); Basophils % (auto) 1.1 %; Echinocytes 1+; Eosinophils # (auto) 0.26 K/uL (0-0.50); Eosinophils % (auto) 9.3 %; Lymphocytes # (auto) 0.71 K/uL (1.2-3.4); Lymphocytes % (auto) 25.4 %; Monocytes % (auto) 10.7 %; Neutrophils % (auto) 53.5 %; Ovalocytes 1+; Polychromasia 1+; Tear Drop Cells 2+
[2022-06-08 08:36] LABS: BUN Creatinine Ratio 18.5 (10-20); Calcium 8.6 mg/dl (8.5-10.1); Creatinine Clr Calc Pharmacy 88.5 ml/min; Est GFR (African American) 106.5 ml/min; Est GFR (Non-African American) 91.9 ml/min; Potassium 3.8 mmol/L (3.5-5.1)
--- NOTE | 2022-06-08 10:15 | Discharge Summary ---
Date of Service June 08, 2022 Admission HPI Per Admitting Provider History obtained from patient, family, and records. Medical history significant for asthma/restrictive lung disease as per records, mood disorder, fibromyalgia, hypertension, hyperlipidemia, NAFLD cirrhosis, THAD on BiPAP, DM2 insulin requiring, chronic pancytopenia (baseline hemoglobin 11), cerebral palsy as per records, hypothyroidism, history of MRSA Recent confinement last month for hepatic encephalopathy. Last week, patient seen at the ER for right-sided abdominal pain nausea symptoms. Symptoms attributed to UTI. Patient discharged on cefdinir course. Urine CS later grew MRSA. Patient called by pharmacist and instructed to start Bactrim course and stop cefdinir. Worsening abdominal pain despite antibiotic Rx as per patient. Chills at home. Usual headache, chest pain, SOB complaints as per patient. Constipated for 2 days. Patient and claim somebody told him to stop her Linzess Rx. Fair compliance with lactulose. Patient brought to the ER for evaluation. MEDICAL HISTORY: As above. SURGICAL HISTORY: She has had dental surgery, gynecologic section, hip surgery, and tendon repair. FAMILY HISTORY: Heart disease. Diabetes PERSONAL AND SOCIAL HISTORY: Nonsmoker. No chronic intake of alcoholic beverages, disabled. Admission Exam Per Admitting Provider GENERAL: uncomfortable, slightly anxious, obese, no respiratory distress SKIN: Pallor, warm HEENT: Pale palpebral conjunctivae, no ptosis, dry buccal mucosa NECK : Supple, short neck, no tenderness CHEST : Decreased breath sounds , no tenderness HEART : RRR, no obvious murmurs ABDOMEN: Marked distention, central abdominal tenderness BACK : Low back tenderness, limited leg raises (chronic as per patient) EXTREMITIES : Bilateral LE swelling, no LE tenderness, no other conspicuous deformities noted NEUROLOGIC : Coherent, no facial asymmetry, gait and stance not assessed Principal Diagnosis Constipation Discharge Exam Constitutional WD/WN, vitals as above + obese Respiratory normal respiratory effort, lungs clear to auscultation Cardiovascular Rate/Rhythm: regular rate and regular rhythm Vessels: normal peripheral pulses Extremities: no edema Gastrointestinal (Abdomen) Percussion/Palpation: abdomen soft; abdomen nontender Skin no rashes, warm and dry Neurologic no focal motor deficits Psychiatric A+Ox3, euthymic affect Discharge Data Allergies Allergy/AdvReac Type Severity Reaction Status Date / Time Penicillins Allergy Intermediate Rash Verified 08/10/21 00:30 adhesive tape Allergy Mild ITCHING Verified 08/10/21 00:30 perflutren AdvReac Intermediate LOWER BACK Verified 08/10/21 00:30 PAIN Consultations None Ordered Studies Laboratory Results WBC 2.80 K/ul (4.8-10.8) L 06/08/22 07:41 RBC 2.80 M/uL (3.93-5.22) L 06/08/22 07:41 Hgb 10.5 g/dl (12.0-16.0) L 06/08/22 07:41 Hct 31.5 % (34.1-44.9) L 06/08/22 07:41 MCV 112.5 fL (80.0-100.0) H 06/08/22 07:41 MCH 37.5 pg (25.0-34.0) H 06/08/22 07:41 MCHC 33.3 g/dL (32.0-36.0) 06/08/22 07:41 RDW Std Deviation 71.7 fL (36.4-46.3) H 06/08/22 07:41 RDW Coeff of Bradley 17.2 % (11.5-14.5) H 06/08/22 07:41 Plt Count 58 K/uL (130-400) L 06/08/22 07:41 MPV 13.8 fL (9.4-12.3) H 06/08/22 07:41 Immature Gran % (Auto) 0.0 % 06/08/22 07:41 Neut % (Auto) 53.5 % 06/08/22 07:41 Lymph % (Auto) 25.4 % 06/08/22 07:41 [place] % (Auto) 10.7 % 06/08/22 07:41 Eos % (Auto) 9.3 % 06/08/22 07:41 Baso % (Auto) 1.1 % 06/08/22 07:41 Neut # (Auto) 1.50 K/uL (1.4-6.5) 06/08/22 07:41 Lymph # (Auto) 0.71 K/uL (1.2-3.4) L 06/08/22 07:41 [place] # (Auto) 0.30 K/uL (0.24-0.82) 06/08/22 07:41 Eos # (Auto) 0.26 K/uL (0-0.50) 06/08/22 07:41 Baso # (Auto) 0.03 K/uL (0-0.2) 06/08/22 07:41 Immature Gran # (Auto) 0.00 K/uL (0.00-0.02) 06/08/22 07:41 Platelet Estimate Decreased (Normal) L 06/04/22 17:25 Polychromasia 1+ 06/08/22 07:41 Tear Drop Cells 2+ 06/08/22 07:41 Ovalocytes 1+ 06/08/22 07:41 Echinocytes 1+ 06/08/22 07:41 Sodium 137 mmol/L (136-145) 06/08/22 07:40 Potassium 3.8 mmol/L (3.5-5.1) 06/08/22 07:40 Chloride 110 mmol/L (98-107) H 06/08/22 07:40 Carbon Dioxide 23 mmol/L (21-32) 06/08/22 07:40 Anion Gap 4 (3-11) 06/08/22 07:40 BUN 12 mg/dl (6-23) 06/08/22 07:40 Creatinine 0.65 mg/dl (0.6-1.2) 06/08/22 07:40 Est Cr Clr Drug Dosing 88.5 ml/min 06/08/22 07:40 Est GFR ( Amer) 106.5 ml/min 06/08/22 07:40 Est GFR (Non-Af Amer) 91.9 ml/min 06/08/22 07:40 BUN/Creatinine Ratio 18.5 (10-20) 06/08/22 07:40 Glucose 124 mg/dl (70-99(Fasting)) H 06/08/22 07:40 POC Glucose 137 mg/dl (70-99) H 06/08/22 08:15 Lactate 1.5 mmol/L (0.4-2.0) 06/04/22 17:25 Calcium 8.6 mg/dl (8.5-10.1) 06/08/22 07:40 Magnesium 1.9 mg/dl (1.7-2.4) 06/06/22 05:27 Total Bilirubin 1.6 mg/dl (0.2-1.0) H 06/05/22 07:34 AST 60 U/L (13-39) H 06/05/22 07:34 ALT 49 U/L (7-52) 06/05/22 07:34 Alkaline Phosphatase 100 U/L (34-104) 06/05/22 07:34 Ammonia 63.0 umol/L (18-72) 06/06/22 05:29 Total Creatine Kinase 358 U/L (26-192) H 06/06/22 05:27 Troponin I High Sens 7.1 pg/ml (0-14) 06/04/22 17:25 Total Protein 6.6 gm/dl (6.0-8.3) 06/05/22 07:34 Albumin 3.5 gm/dl (3.4-5.0) 06/05/22 07:34 Globulin 3.1 gm/dl (2.5-4.0) 06/05/22 07:34 Albumin/Globulin Ratio 1.1 (0.9-2) 06/05/22 07:34 Lipase 37 U/L (11-82) 06/04/22 17:25 Vitamin B12 1138 pg/ml (180-914) H 06/06/22 11:19 RBC Folate 1060 ng/mL RBC (>280) 06/06/22 11:19 Procalcitonin 0.11 ng/ml (0-0.5) 06/04/22 17:25 TSH 0.034 uIu/ml (0.300-4.500) L 06/04/22 17:25 Free T4 1.58 ng/dl (0.61-1.60) 06/04/22 17:25 Urine Color Yellow 06/04/22 23:13 Urine Appearance Clear (Clear) 06/04/22 23:13 Urine pH 6.0 (4.5-7.5) 06/04/22 23:13 Ur Specific [place] 1.041 (1.000-1.030) H 06/04/22 23:13 Urine Protein Negative (Negative) 06/04/22 23:13 Urine Glucose (UA) Negative (Negative) 06/04/22 23:13 Urine Ketones Negative (Negative) 06/04/22 23:13 Urine Blood 3+ (Negative) H 06/04/22 23:13 Urine Nitrite Negative (Negative) 06/04/22 23:13 Urine Bilirubin Negative (Negative) 06/04/22 23:13 Urine Urobilinogen Positive (Negative) H 06/04/22 23:13 Ur Leukocyte Esterase 1+ (Negative) H 06/04/22 23:13 Urine WBC (Auto) 10-30 /hpf (0-5) H 06/04/22 23:13 Urine RBC (Auto) >30 /hpf (0-4) H 06/04/22 23:13 U Hyaline Cast (Auto) 1-5 /lpf (0-5) 06/04/22 23:13 U Epithel Cells (Auto) >30 /lpf (0-5) H 06/04/22 23:13 Urine Bacteria (Auto) Negative (Negative) 06/04/22 23:13 Stl C. diff Tox B Gene Negative Cdiff Gene (Neg) 06/05/22 06:23 SARS-CoV-2, RNA, NAAT NEGATIVE (NEGATIVE) 06/04/22 17:25 Impressions Chest X-Ray 06/04/22 16:49 XR chest 1V portable, XR KUB/Abdomen 1 view HISTORY: 67 years-old Female weakness acute weakness COMPARISON: CT abdomen and pelvis 05/29/2022, chest radiograph 05/22/2022 TECHNIQUE: AP view of the chest with KUB radiograph FINDINGS: CHEST: Right IJ central venous catheter is unchanged. Moderate cardiomegaly. No pneumothorax or large pleural effusion. Mild subsegmental bibasilar densities favoring atelectasis. Degenerative changes of the shoulders and spine. KUB: Moderate fecal retention with nonobstructive bowel gas pattern. IUD of the mid uterus. Renal shadows are obscured by bowel gas. No renal or ureteral calculi identified by radiography. Electronic device projects over the right midabdomen. Degenerative changes of the spine, pelvis and hips. IMPRESSION: 1. Cardiomegaly without acute process of the chest. 2. Nonobstructive bowel gas pattern. 3. Moderate fecal retention. ACT 112: Negative or not required by law. The above report was generated using voice recognition software. It may contain grammatical, syntax or spelling errors. Electronically signed by: Serg Torres M.D. 06/04/2022 6:22 PM KUB X-Ray 06/04/22 16:50 XR chest 1V portable, XR KUB/Abdomen 1 view HISTORY: 67 years-old Female weakness acute weakness COMPARISON: CT abdomen and pelvis 05/29/2022, chest radiograph 05/22/2022 TECHNIQUE: AP view of the chest with KUB radiograph FINDINGS: CHEST: Right IJ central venous catheter is unchanged. Moderate cardiomegaly. No pneumothorax or large pleural effusion. Mild subsegmental bibasilar densities favoring atelectasis. Degenerative changes of the shoulders and spine. KUB: Moderate fecal retention with nonobstructive bowel gas pattern. IUD of the mid uterus. Renal shadows are obscured by bowel gas. No renal or ureteral calculi identified by radiography. Electronic device projects over the right midabdomen. Degenerative changes of the spine, pelvis and hips. IMPRESSION: 1. Cardiomegaly without acute process of the chest. 2. Nonobstructive bowel gas pattern. 3. Moderate fecal retention. ACT 112: Negative or not required by law. The above report was generated using voice recognition software. It may contain grammatical, syntax or spelling errors. Electronically signed by: Serg Torres M.D. 06/04/2022 6:22 PM Abdomen/Pelvis CT 06/04/22 20:[address] WITH IV CONTRAST CT DOSE: 1528.82 mGy.cm HISTORY: Acute generalized abdominal pain worsening abd pain TECHNIQUE: Multiaxial CT images of the abdomen and pelvis were performed following the IV administration of 88 cc of Optiray, A dose lowering technique was utilized adhering to the principles of ALARA. COMPARISON STUDY: CT abdomen and pelvis 05/29/2022 FINDINGS: Cardiomegaly. [id number] catheter distal tip noted within the right atrium. Mild subsegmental right basilar atelectasis. No pneumatosis or pneumoperitoneum. Spleen is enlarged, 14.3 cm in length. Unremarkable pancreas and adrenal glands. Mild distention of the gallbladder. Cirrhotic morphology of the liver. Trace abdominal ascites. Upper abdominal varicosities. Patency of the hepatic and portal veins. 4 mm nonobstructing calculus of the superior pole right kidney. There is symmetric enhancement of the kidneys. The previously noted nonobstructing right renal calculus is no longer identified. Mild urothelial thickening and enhancement of the right renal collecting system. Urinary bladder wall thickening with mild perivesicular stranding. Satisfactory positioning of the intrauterine device. Subcentimeter cystic foci are noted within the ovaries. Atherosclerosis of the aorta without aneurysm. There is no lymphadenopathy identified. No bowel obstruction. Mild wall thickening of the rectum is likely secondary to partial distention. Moderate fecal retention. Colonic diverticulosis. Normal appendix. Unremarkable soft tissues. Degenerative changes of the spine, pelvis and hips. IMPRESSION: 1. No bowel obstruction or bowel wall thickening. Normal appendix. 2. Cirrhosis with splenomegaly and varicosities redemonstrated suggestive of portal venous hypertension. Trace abdominal pelvic ascites redemonstrated. 3. Nonobstructing left renal calculus. 4. Mild urothelial thickening of the right renal collecting system. Correlate with urinalysis to exclude infection. 5. Moderate fecal retention. ACT 112: Negative or not required by law. The above report was generated using voice recognition software. It may contain grammatical, syntax or spelling errors. Electronically signed by: Serg Torres M.D. 06/04/2022 9:35 PM Hospital Course (1) Abdominal pain: Plan 67-year-old class III obese patient with PMH of T2DM, acquired hypothyroidism, restrictive lung disease, THAD on CPAP, asthma, esophageal varices, cirrhosis of liver, portal hypertensive gastropathy, THOMPSON, vitamin D deficiency, GERD, chronic diastolic heart failure, HTN, venous stasis dermatitis of both lower extremities, urinary incontinence due to immobility, DDD lumbar region, fibromyalgia, cerebral palsy, chronic pain syndrome, thrombocytopenia, ALEC due to chronic blood loss, pancytopenia, recurrent MDD, spinal stenosis of lumbar region without neurogenic claudication, lymphedema, wheelchair dependent, primary insomnia, impaired mobility and ADLs, history of MRSA presented to our ED 06/04 worsening abdominal pain [that started 1 week [facility] likely secondary to UTI] likely secondary to constipation versus delayed appropriate treatment for UTI. Patient was initially seen 1 week ago [facility] for abdominal pain, symptoms attributed to UTI, patient started on cefdinir course, urine culture later grew MRSA, patient's antibiotic was changed to Bactrim few days prior to arrival. Of note, recent confinement was last month for hepatic encephalopathy. Patient being managed for the following: Abdominal pain Complicated UTI Constipation Patient presenting with abdominal pain, see above. Patient also complained of chills at home and constipation prior to arrival. Patient was reported to not taking Linzess lately Linzess restarted on 06/05. Patient's home dose of lactulose was 20gm TID for history of Thompson cirrhosis, reported fair compliance. Lactulose increased to 30gm TID. Patient had 3 large BMs on 06/07. Completed Bactrim course for MRSA UTI Patient reports improvement in urinary symptoms. Held spironolactone and potassium supplementation while on Bactrim given high normal potassium at admission. h/o THOMPSON cirrhosis h/o hepatic encephalopathy h/o esophageal varices h/o portal hypertensive gastropathy Continue with lactulose and Linzess Continue Nadolol Mild elevation of CPK CPK 590 --> 358 Outpatient follow-up Hypothyroidism: TSH on admission 0.034, normal T4 Home levothyroxine dose decreased to 125 mcg daily, repeat thyroid function test in 6 weeks Pancytopenia Likely related to portal hypertension/cirrhosis CBC stable DM type II Hgb A1c 7.5 04/2022 Received Lantus and Novolog per protocol while hospitalized. Resume home regimen at discharge Total Time Total Time Spent Total Time Spent (In Minutes): 35 Discharge Plan Discharge Items Patient Disposition: Home - Self-Care Reason For Visit: Abdominal Pain, Constipation Discharge Diagnosis: Constipation Activity: Resume your previous activity Non-emergency contact: Primary Care Provider Call non-emergency contact if: you have any medication questions, your symptoms worsen, your pain is not controlled and you have a fever Follow-up/Referrals: [facility] [Other] (Date & Time 06/10/2022 8:30 AM Provider July Poe RN Department [facility], [facility] ) Vanita Dunn MD [Primary Care Provider] - (Date & Time 06/13/2022 2:00 PM Provider Vanita Dunn MD Department [facility] ) Diet: Carb Consistent or DM2 and Heart Healthy Addtl Attending Provider Instructions: You came to the hospital for abdominal pain and was found to have constipation. Your Lactulose dose was increased to Lactulose 30gm three times per day. It is very important that you do not miss any doses of this medication and are having at least 2 bowel movements per day. If you are not having 2 bowel movements per day, you may take Miralax 17gm daily as needed. Your previously prescribed Linzess was also resumed. You completed an antibiotic for UTI while admitted. Your thyroid function was found to be mildly low and your levothyroxine was reduced to 125mcg daily. Your PCP will need to recheck your thyroid labs in 6 weeks. It was a pleasure taking care of you. If you need to reach a member of the [facility] Hospitalist team at [facility], please call [phone]. ZAK Sarkar Pending Studies at Discharge: No Stand-Alone Forms: My [facility], Smoking Cessation Medications and DC Order Prescriptions: New polyethylene glycol 3350 [Miralax] 17 gram Powder In Packet 17 g PO DAILY PRN (Reason: constipation) Qty: 14 0RF levothyroxine [Synthroid] 125 mcg Tablet 125 mcg PO DAILYBB Qty: 30 0RF lactulose 20 gram/30 mL Solution 30 g PO TID Qty: 1200 0RF Linzess 145 mcg Capsule 290 mcg PO DAILY Qty: 30 0RF Continued silver sulfadiazine 1 % Cream 1 applic TOPICAL DAILY atorvastatin 80 mg tablet 80 mg PO DAILY albuterol sulfate 2.5 mg /3 mL (0.083 %) Solution For Nebulization 2.5 mg INHALATION DIRECTED PRN (Reason: Shortness Of Breath Or Wheezing) isosorbide mononitrate 30 mg tablet extended release 24 hr 30 mg PO DAILY potassium chloride 10 mEq tablet extended release 10 meq PO DAILY spironolactone 25 mg tablet 50 mg PO DAILY pantoprazole 20 mg tablet,delayed release (DR/EC) 40 mg PO BID gabapentin 300 mg capsule 600 mg PO QPM gabapentin 300 mg capsule 300 mg PO BID Rx Instructions: Take 1 tab in am & mid day. May take extra dose in AM & MID DAY PRN. Total of 6 a day max. aspirin 81 mg tablet,chewable 81 mg PO DAILY furosemide 20 mg tablet 20 mg PO DAILY PRN (Reason: .LOWER EXTREMITY SWELLING) oxybutynin chloride 5 mg tablet 5 mg PO BID albuterol sulfate 5 mg/mL Solution For Nebulization 2.5 mg INHALATION DIRECTED PRN (Reason: Shortness Of Breath Or Wheezing) insulin aspart U-100 [Novolog Flexpen U-100 Insulin] 100 unit/mL (3 mL) insulin pen See Rx Instructions .ROUTE .COMPLEX Rx Instructions: 35 UNITS @ BREAKFAST, 39 UNITS @ BEFORE LUNCH, 45 UNITS BEFORE SUPPER insulin glargine [Lantus Solostar U-100 Insulin] 100 unit/mL (3 mL) insulin pen 50 unit SUBCUT HS Trulicity 4.5 mg/0.5 mL pen injector 4.5 mg SUBCUT .Q MON trazodone 50 mg tablet 50 mg PO HS lidocaine-prilocaine 2.5-2.5 % Cream 1 applic topical DIRECTED PRN (Reason: MEDI-PORT) nadolol 40 mg tablet 40 mg PO DAILY fluticasone propionate [Flonase Allergy Relief] 50 mcg/actuation [place],Suspension 2 spray INTRANASAL DAILY Rx Instructions: administer into each nostril escitalopram oxalate 20 mg tablet 20 mg PO DAILY budesonide-formoterol 160-4.5 mcg/actuation Hfa Aerosol Inhaler 2 puff INHALATION BID metformin 500 mg tablet extended release 24 hr 500 mg PO DAILY Discontinued cefdinir 300 mg capsule 300 mg PO BID 10 Days Qty: 20 0RF lactulose 10 gram/15 mL solution 30 ml PO TID Rx Instructions: TITRATE DOSE FOR EFFECT OF 3-5 BM DAILY sulfamethoxazole-trimethoprim 800-160 mg tablet 1 tab PO BID levothyroxine 150 mcg tablet 150 mcg PO DAILY Discharge Orders: Discharge Order (Routine); Ordered 06/08/22 Ordered By: Chen Duval/Other Patient Handouts: Urinary Tract Infections in Women Admission Data Admit Date/Time: 06/06/22 07:34 Attending Provider: Kirit Rios Admit Provider: Glen Huber Primary Care Provider: Vanita Dunn Other Providers: Cornelius Gray Other Interventions: Discharge Summary Assessment (RN) Last Done: 06/08/22 11:34 Supervising Physician Co-Signing Physician Notes Patient seen and examined at bedside. Agree with above assessment by Chen CRESPO. Patient was comfortably sitting up on the bed; not in any distress. She felt her abdomen discomfort is much better. She denies any fever, chills, chest pain, shortness of breath or urinary symptoms. She also completed course of antibiotics for her UTI. Discharge coordinated with her . Patient to follow-up with her primary care doctor. She was discharged on increased dose of lactulose and MiraLAX.
== END 2022-06-08 14:13 | disposition home or self-care (01) | DRG 392 ==
LOC: 3W 16:25 → ED 16:25 → SUATTDRO 20:19 → 3W 20:53

== ENCOUNTER 2022-09-21 16:29 | Inpatient (IN) ==
--- NOTE | 2022-09-21 18:36 | Emergency Department Note ---
Impression & Plan Infection of right great toe due to methicillin resistant Staphylococcus aureus (MRSA), Diabetes ED Provider Note INFORMANT: Patient ED PROVIDER(S): Chema Acosta MD CHIEF COMPLAINT: Diabetic foot infection PLAN: Disposition: Admitted Condition: Good Outpatient prescription management: none Referral: None MEDICAL DECISION MAKING: Patient presented because of a MRSA diabetic foot infection. She had blood work obtained. Her CBC showed a pancytopenia which is chronic by record review. The patient was found to have a mildly elevated CRP. Chemistry panel was unremar kable. Patient was given a dose of IV daptomycin after cultures. [facility] Patient was evaluated in the ER admitted for further management. Triage Nursing notes reviewed and agree them. Vital Signs: reviewed and remarkable for no significant abnormalities Prior /Outside records reviewed: Prior cultures reviewed from clinic patient has MRSA. Differential diagnosis: Cellulitis, abscess, MRSA infection, DVT, necrotizing fasciitis, dermatitis, drug eruption, allergic reaction, as well as other pathologies. Diagnostics, as interpreted by me: ECG: none Cardiac Monitoring: Cardiac monitoring ordered by me: The patient was placed on continuous cardiac monitoring and observed. It revealed a normal sinus rhythm at 82 beats per minute without ectopy or evidence of dysrhythmia. Medical decision rules: none Imaging studies: X-ray imaging of the right foot is negative for acute osteomy elitis. I refer you to the EMR for further details. HPI: The patient is a 67year old female who presents to the Emergency Room with complaints of right great toe infection. This started over the last week and is found to be MRSA by the outpatient clinic. The patient also notes the following associated symptoms, pain on occasion in the right great toe. There was some blood in the discharge from the toe. Patient is diabetic. She was started on antibiotics from the outpatient clinic. Due to the patient's poor health and diabetes history she and the primary discussed admission to the [facility] for further treatment and care. Patient was required to come to the emergency department for admission here and hospitalist management prior to transfer to the [facility]. Current pain is 0. Pt denies LOC, headache, fevers, chills, diaphoresis, visual changes, neck pain, chest pain, breathing difficulties, nausea, vomiting, abdominal pain, back pain, diarrhea, urinary symptoms, numbness, new weakness, lymphadenopathy, or other complaints. PAST MEDICAL HISTORY: See Below, diabetes, COVID-19, anemia PAST SURGICAL HISTORY: See Below, hysterectomy SOCIAL HISTORY: See Below, HOME MEDICATIONS: See Below ALLERGIES: See Below VITALS: See Below PHYSICAL EXAMINATION: GENERAL: Awake, alert, uncomfortable-appearing, in no distress HENT: Normocephalic, atraumatic. Oropharynx unremarkable. EYES: Normal conjunctiva. Sclera non-icteric. PERRLA NECK: Inspection normal. Non-tender. Supple. No nuchal rigidity. FROM. No masses. RESPIRATORY: Clear to auscultation. No wheezes. No rales. Normal respiratory effort. CARDIAC: Normal rate. Normal rhythm. No murmurs. No rubs. Extremities warm and well perfused. Pulses equal. No JVD. GI: Soft, non-distended. No tenderness to palpation. No rebound or guarding. No masses. RECTAL: Deferred. MUSCULOSKELETAL: Atraumatic. Chest examination reveals no tenderness. The back is symmetrical on inspection without obvious abnormality. There is no CVA tenderness to palpation. No joint edema. LOWER EXTREMITIES: Calves are equal size bilaterally and non-tender. 2+ edema. Chronic venous discoloration. There is some mild bloody discharge that is dried on the lateral aspect of the right great toenail. The right great toe is cool to the touch and erythematous. There is some tenderness to palpation. NEURO: Normal sensorium. No sensory or motor deficits noted. SKIN: No rash or jaundice noted. Past Med/Surg History Medical History Ambulatory dysfunction Asthma DOES NOT USE INH. REPORTS USING NEB TREATMENTS BID. Bilateral lower extremity edema Cardiac murmur does not follow w/ cardio; echo 11/2017 [facility] Cerebral palsy Chronic back pain Chronic pain Dark stools Diplopia reports intermittent x 1-2 weeks. pt reports PCP aware and scheduled for brain MRI 03/11 at [facility]. 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 Major depressive disorder, recurrent, moderate Morbid obesity with BMI of 50.0-59.9, adult Obstructive sleep apnea CPAP + OXYGEN AT 2 LPM @ NIGHT On home oxygen therapy 2 LPM @ NIGHT + CPAP Osteoarthritis Pancreatic cyst Poor historian SOB (shortness of breath) on exertion Venous insufficiency Wheelchair bound Surgical History H/O wisdom tooth extraction History of Achilles tendon repair History of section History of colonoscopy History of dilatation and curettage History of esophagogastroduodenoscopy (EGD) EUS 02/22/2019 [facility] History of hip surgery History of strabismus surgery History of tooth extraction Family History Father Family history of diabetes mellitus Myocardial infarction, Onset Age: 61 Mother Myocardial infarction, Onset Age: 72 Sister Myocardial infarction Social History Smoking Status: Never smoker Second Hand Exposure: No; Hx Alcohol Use: No Hx Substance Use: No Preferred Language: Lao Communication Ability: Effective 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 Beliefs That Will Affect Care: None marital status: Current Living Situation: Spouse Current Living Situation Comment: Reports home health assists 5 times a week Feels Safe at Home: Yes Assistive Devices: Mechanical Lift and Wheelchair Allergies Allergies Allergy/AdvReac Type Severity Reaction Status Date / Time Penicillins Allergy Intermediate Rash Verified 09/21/22 20:53 adhesive tape Allergy Mild ITCHING Verified 09/21/22 20:53 perflutren AdvReac Intermediate LOWER BACK Verified 09/21/22 20:53 PAIN Home Meds Home Medications Medication Instructions Recorded Confirmed albuterol sulfate 2.5 mg/3 mL 2.5 mg inhalation DIRECTED PRN 04/30/22 09/21/22 (0.083 %) solution for nebulization Shortness Of Breath Or Wheezing albuterol sulfate 5 mg/mL(0.5 %) 2.5 mg inhalation DIRECTED PRN 04/30/22 09/21/22 solution for nebulization Shortness Of Breath Or Wheezing aspirin 81 mg chewable tablet 81 mg PO DAILY 04/30/22 09/21/22 atorvastatin 80 mg tablet 80 mg PO PM 04/30/22 09/21/22 budesonide-formoterol HFA 160 2 puff inhalation BID PRN 04/30/22 09/21/22 mcg-4.5 mcg/actuation aerosol Shortness Of Breath Or Wheezing inhaler escitalopram oxalate 20 mg tablet 20 mg PO DAILY 04/30/22 09/21/22 fluticasone propionate 50 2 spray intranasal DAILY 04/30/22 09/21/22 mcg/actuation nasal spray,suspension (Flonase Allergy Relief) furosemide 20 mg tablet 20 mg PO DAILY PRN .LOWER 04/30/22 09/21/22 EXTREMITY SWELLING gabapentin 300 mg capsule 300 mg PO BID 04/30/22 09/21/22 gabapentin 300 mg capsule 600 mg PO QPM 04/30/22 09/21/22 insulin aspart U-100 100 unit/mL See Rx Instructions .Route .COMPLEX 04/30/22 09/21/22 (3 mL) subcutaneous pen (Novolog Flexpen U-100 Insulin aspart) insulin glargine 100 unit/mL (3 50 unit subcut HS 04/30/22 09/21/22 mL) subcutaneous pen (Lantus Solostar U-100 Insulin) isosorbide mononitrate 30 mg 30 mg PO DAILY 04/30/22 09/21/22 tablet,extended release 24 hr lidocaine-prilocaine 2.5 %-2.5 % 1 applic topical DIRECTED PRN 04/30/22 09/21/22 topical cream MEDI-PORT nadolol 40 mg tablet 40 mg PO DAILY 04/30/22 09/21/22 pantoprazole 20 mg tablet,delayed 40 mg PO BID 04/30/22 09/21/22 release potassium chloride 10 mEq 10 meq PO QAM 04/30/22 09/21/22 tablet,extended release silver sulfadiazine 1 % topical 1 applic topical DAILY apply to 04/30/22 09/21/22 cream wound spironolactone 25 mg tablet 50 mg PO DAILY 04/30/22 09/21/22 trazodone 50 mg tablet 50 mg PO HS 04/30/22 09/21/22 metformin 500 mg tablet,extended 500 mg PO DAILY 06/04/22 09/21/22 release 24 hr doxycycline hyclate 100 mg capsule 100 mg PO AMHS 09/21/22 09/21/22 dulaglutide 4.5 mg/0.5 mL 4.5 mg subcut WK 09/21/22 09/21/22 subcutaneous pen injector (Trulicity) levothyroxine 150 mcg tablet 150 mcg PO QAM 09/21/22 09/21/22 mupirocin 2 % topical ointment 1 applic topical BID 09/21/22 09/21/22 oxybutynin chloride 5 mg tablet 5 mg PO BID 09/21/22 09/21/22 Previous Rx's Medication Instructions Recorded lactulose 20 gram/30 mL oral 30 g (45 mL) PO TID #1,200 mL 06/08/22 solution linaclotide 145 mcg capsule 290 mcg PO DAILY #30 caps 06/08/22 (Linzess) Results & Data (ED) Vital Signs Vital Signs - 24 hr 09/21/22 16:52 09/21/22 19:13 09/21/22 23:47 Temperature 36.6 C 36.7 C Temperature Source Temporal Artery Scan Oral Pulse Rate 63 Pulse Rate [Apical] 62 68 Pulse Rhythm [Apical] Regular Regular Pulse Strength [Apical] Normal Respiratory Rate 18 18 18 Respiratory Effort / Characteristics Non-Labored Spontaneous Non-Labored Non-Labored Respiratory Depth Normal Normal Normal Respiratory Pattern Regular Regular Regular Blood Pressure 97/61 L Blood Pressure [Right Arm] 110/69 115/74 Blood Pressure Mean 73 Blood Pressure Mean [Right Arm] 82 87 Blood Pressure Position Sitting Pulse Oximetry 95 95 96 Oxygen Delivery Method Room Air Room Air Sepsis Recent Fever Within 48 Hours No Sepsis New/Unexplained Change in Mental Status N/A Sepsis Action Taken by Nursing No Action Required 09/22/22 00:00 Temperature Temperature Source Pulse Rate Pulse Rate [Apical] 82 Pulse Rhythm [Apical] Regular Pulse Strength [Apical] Respiratory Rate 16 Respiratory Effort / Characteristics Non-Labored Respiratory Depth Normal Respiratory Pattern Regular Blood Pressure Blood Pressure [Right Arm] 106/60 Blood Pressure Mean Blood Pressure Mean [Right Arm] 75 Blood Pressure Position Pulse Oximetry 93 Oxygen Delivery Method Room Air Sepsis Recent Fever Within 48 Hours Sepsis New/Unexplained Change in Mental Status Sepsis Action Taken by Nursing Laboratory Data 09/21/22 18:13 09/21/22 18:13 Lab Results 09/21/22 09/21/22 09/21/22 Range/Units 18:13 18:13 18:13 WBC 2.87 L (4.8-10.8) K/ul RBC 2.80 L (3.93-5.22) M/uL Hgb 10.6 L (12.0-16.0) g/dl Hct 32.7 L (34.1-44.9) % MCV 116.8 H (80.0-100.0) fL MCH 37.9 H (25.0-34.0) pg MCHC 32.4 (32.0-36.0) g/dL RDW Std Deviation 70.8 H (36.4-46.3) fL RDW Coeff of Bradley 16.4 H (11.5-14.5) % Plt Count 67 L (130-400) K/uL MPV 13.3 H (9.4-12.3) fL Immature Gran % (Auto) 0.3 % Neut % (Auto) 50.6 % Lymph % (Auto) 26.5 % [place] % (Auto) 12.2 % Eos % (Auto) 9.4 % Baso % (Auto) 1.0 % Neut # (Auto) 1.45 (1.4-6.5) K/uL Lymph # (Auto) 0.76 L (1.2-3.4) K/uL [place] # (Auto) 0.35 (0.24-0.82) K/uL Eos # (Auto) 0.27 (0-0.50) K/uL Baso # (Auto) 0.03 (0-0.2) K/uL Immature Gran # (Auto) 0.01 (0.00-0.02) K/uL Platelet Estimate Decreased L (Normal) Polychromasia 1+ Macrocytosis Present ESR 30 (0-30) mm/hr Sodium 141 (136-145) mmol/L Potassium 4.0 (3.5-5.1) mmol/L Chloride 112 H (98-107) mmol/L Carbon Dioxide 23 (21-32) mmol/L Anion Gap 6 (3-11) BUN 11 (6-23) mg/dl Creatinine 0.60 (0.6-1.2) mg/dl Est Cr Clr Drug Dosing Not Reportable Est GFR ( Amer) 109.3 ml/min Est GFR (Non-Af Amer) 94.3 ml/min BUN/Creatinine Ratio 18.3 (10-20) Glucose 119 H (70-99(Fasting)) mg/dl POC Glucose (70-99) mg/dl Calcium 8.8 (8.5-10.1) mg/dl Total Bilirubin 1.4 H (0.2-1.0) mg/dl AST 38 (13-39) U/L ALT 29 (7-52) U/L Alkaline Phosphatase 94 (34-104) U/L C-Reactive Protein 0.93 H (0-0.5) mg/dl Total Protein 6.2 (6.0-8.3) gm/dl Albumin 3.0 L (3.4-5.0) gm/dl Globulin 3.2 (2.5-4.0) gm/dl Albumin/Globulin Ratio 0.9 (0.9-2) SARS-CoV-2, RNA, NAAT (NEGATIVE) 09/21/22 09/21/22 Range/Units 18:49 23:43 WBC (4.8-10.8) K/ul RBC (3.93-5.22) M/uL Hgb (12.0-16.0) g/dl Hct (34.1-44.9) % MCV (80.0-100.0) fL MCH (25.0-34.0) pg MCHC (32.0-36.0) g/dL RDW Std Deviation (36.4-46.3) fL RDW Coeff of Bradley (11.5-14.5) % Plt Count (130-400) K/uL MPV (9.4-12.3) fL Immature Gran % (Auto) % Neut % (Auto) % Lymph % (Auto) % [place] % (Auto) % Eos % (Auto) % Baso % (Auto) % Neut # (Auto) (1.4-6.5) K/uL Lymph # (Auto) (1.2-3.4) K/uL [place] # (Auto) (0.24-0.82) K/uL Eos # (Auto) (0-0.50) K/uL Baso # (Auto) (0-0.2) K/uL Immature Gran # (Auto) (0.00-0.02) K/uL Platelet Estimate (Normal) Polychromasia Macrocytosis ESR (0-30) mm/hr Sodium (136-145) mmol/L Potassium (3.5-5.1) mmol/L Chloride (98-107) mmol/L Carbon Dioxide (21-32) mmol/L Anion Gap (3-11) BUN (6-23) mg/dl Creatinine (0.6-1.2) mg/dl Est Cr Clr Drug Dosing Est GFR ( Amer) ml/min Est GFR (Non-Af Amer) ml/min BUN/Creatinine Ratio (10-20) Glucose (70-99(Fasting)) mg/dl POC Glucose 137 H (70-99) mg/dl Calcium (8.5-10.1) mg/dl Total Bilirubin (0.2-1.0) mg/dl AST (13-39) U/L ALT (7-52) U/L Alkaline Phosphatase (34-104) U/L C-Reactive Protein (0-0.5) mg/dl Total Protein (6.0-8.3) gm/dl Albumin (3.4-5.0) gm/dl Globulin (2.5-4.0) gm/dl Albumin/Globulin Ratio (0.9-2) SARS-CoV-2, RNA, NAAT NEGATIVE (NEGATIVE) Administered Medications Daptomycin 300 mg/ Syringe 6 mls @ 3 mls/min IV Q24H [facility]; Protocol Stop: 09/23/22 19:29 Last Admin: 09/21/22 20:11 Dose: 3 mls/min Documented By: SHELLEYF Discontinued Medications Insulin Aspart (Insulin Aspart Per Unit) 0 units SC ONE STA Stop: 09/21/22 23:20 Last Admin: 09/21/22 23:51 Dose: Not Given Documented By: ARTUR Co-signed By: ARLEEN Insulin Glargine (Lantus Per Unit Charge) 10 units SQ ONE STA Stop: 09/22/22 01:00 Last Admin: 09/22/22 01:08 Dose: 10 units Documented By: ARTUR Co-signed By: [facility] Imaging Data Radiologist's Impression: Foot X-Ray 09/21/22 19:04 XR foot RT 2V CLINICAL HISTORY: infected right great toe, ?osteo. +MRSA COMPARISON: Right first toe radiographs April 06, 2020. FINDINGS: This study is compromised given difficulty positioning. No acute fracture is noted. There is no evidence for acute osteomyelitis within the right foot by radiography. Soft tissue swelling is noted. There is moderate vascular calcification. Lower leg soft tissue calcifications are chronic. Moderate midfoot degenerative changes are present. IMPRESSION: 1. No acute fracture. No radiographic evidence for acute osteomyelitis. 2. Exam compromised given difficulty positioning. 3. Diffuse soft tissue swelling. ACT 112: Negative or not required by law. Electronically signed by: Lucas Lambert M.D. 09/21/2022 7:52 PM Discharge Plan Visit Data Chief Complaint: Skin Problem Stated Complaint: MERSA, ADVSD TO BE ADMIT TO GO TO [facility] ED Provider: Chema Acosta Discharge Problem: Infection of right great toe due to methicillin resistant Staphylococcus aureus (MRSA), Diabetes Forms Stand Alone Forms: My [facility] [employer] Prescriptions Prescriptions: No Action doxycycline hyclate 100 mg capsule 100 mg PO AMHS Rx Instructions: BEGIN 09/17/22 X 10 DAYS. oxybutynin chloride 5 mg tablet 5 mg PO BID levothyroxine 150 mcg tablet 150 mcg PO QAM Trulicity 4.5 mg/0.5 mL pen injector 4.5 mg SUBCUT WK Rx Instructions: TAKE THIS MED EVERY MONDAY. mupirocin 2 % ointment 1 applic TOPICAL BID silver sulfadiazine 1 % Cream 1 applic TOPICAL DAILY atorvastatin 80 mg tablet 80 mg PO PM albuterol sulfate 2.5 mg /3 mL (0.083 %) Solution For Nebulization 2.5 mg INHALATION DIRECTED PRN (Reason: Shortness Of Breath Or Wheezing) isosorbide mononitrate 30 mg tablet extended release 24 hr 30 mg PO DAILY potassium chloride 10 mEq tablet extended release 10 meq PO QAM Rx Instructions: TAKE WITH FOOD spironolactone 25 mg tablet 50 mg PO DAILY pantoprazole 20 mg tablet,delayed release (DR/EC) 40 mg PO BID Rx Instructions: TAKE TWO TABLETS TWICE DAILY gabapentin 300 mg capsule 600 mg PO QPM Rx Instructions: TAKE TWO CAPSULES IN THE EVENING. gabapentin 300 mg capsule 300 mg PO BID MDD 6 CAP Rx Instructions: Take 1 tab in am & mid day. May take extra dose in AM & MID DAY PRN. Total of 6 a day max. aspirin 81 mg tablet,chewable 81 mg PO DAILY furosemide 20 mg tablet 20 mg PO DAILY PRN (Reason: .LOWER EXTREMITY SWELLING) albuterol sulfate 5 mg/mL Solution For Nebulization 2.5 mg INHALATION DIRECTED PRN (Reason: Shortness Of Breath Or Wheezing) insulin aspart U-100 [Novolog Flexpen U-100 Insulin] 100 unit/mL (3 mL) insulin pen See Rx Instructions .ROUTE .COMPLEX Rx Instructions: 35 UNITS @ BREAKFAST, 39 UNITS @ BEFORE LUNCH, 45 UNITS BEFORE SUPPER insulin glargine [Lantus Solostar U-100 Insulin] 100 unit/mL (3 mL) insulin pen 50 unit SUBCUT HS trazodone 50 mg tablet 50 mg PO HS lidocaine-prilocaine 2.5-2.5 % Cream 1 applic topical DIRECTED PRN (Reason: MEDI-PORT) Rx Instructions: APPLY WHEN ACCESSING PORT; APPLY TO SKIN OVER MEDIPORT AND COVER OND HOUR PRIOR TO ACCESSING. nadolol 40 mg tablet 40 mg PO DAILY fluticasone propionate [Flonase Allergy Relief] 50 mcg/actuation [place],S uspension 2 spray INTRANASAL DAILY Rx Instructions: administer into each nostril escitalopram oxalate 20 mg tablet 20 mg PO DAILY budesonide-formoterol 160-4.5 mcg/actuation Hfa Aerosol Inhaler 2 puff INHALATION BID PRN (Reason: Shortness Of Breath Or Wheezing) metformin 500 mg tablet extended release 24 hr 500 mg PO DAILY Rx Instructions: TAKE WITH A MEAL lactulose 20 gram/30 mL Solution 30 g PO TID Qty: 1200 0RF Linzess 145 mcg Capsule 290 mcg PO DAILY Qty: 30 0RF Referrals Referrals: Vanita Dunn MD [Primary Care Provider] -
[2022-09-21 18:42] LABS: Basophils # (auto) 0.03 K/uL (0-0.2); Eosinophils # (auto) 0.27 K/uL (0-0.50); Eosinophils % (auto) 9.4 %; Hematocrit (blood only) 32.7 % (34.1-44.9); Hemoglobin 10.6 g/dl (12.0-16.0); Immature Granulocytes # (auto) 0.01 K/uL (0.00-0.02); Immature Granulocytes % (auto) 0.3 %; Lymphocytes # (auto) 0.76 K/uL (1.2-3.4); Lymphocytes % (auto) 26.5 %; Macrocytosis Present; Mean Corpuscular Hemoglobin 37.9 pg (25.0-34.0); Mean Corpuscular Hgb Conc 32.4 g/dL (32.0-36.0); Mean Corpuscular Volume 116.8 fL (80.0-100.0); Mean Platelet Volume 13.3 fL (9.4-12.3); Monocytes # (auto) 0.35 K/uL (0.24-0.82); Monocytes % (auto) 12.2 %; Neutrophils # (auto) 1.45 K/uL (1.4-6.5); Neutrophils % (auto) 50.6 %; Platelet Count 67 K/uL (130-400); Platelet Estimate Decreased (Normal); Polychromasia 1+; RDW Coefficient of Variation 16.4 % (11.5-14.5); RDW Standard Deviation 70.8 fL (36.4-46.3); White Blood Count 2.87 K/ul (4.8-10.8)
[2022-09-21 18:43] LABS: Alanine Aminotransferase 29 U/L (7-52); Albumin Globulin Ratio 0.9 (0.9-2); Alkaline Phosphatase 94 U/L (34-104); Anion Gap 6 (3-11); Aspartate Aminotransferase 38 U/L (13-39); BUN Creatinine Ratio 18.3 (10-20); Bilirubin,Total 1.4 mg/dl (0.2-1.0); Blood Urea Nitrogen 11 mg/dl (6-23); Calcium 8.8 mg/dl (8.5-10.1); Carbon Dioxide 23 mmol/L (21-32); Chloride 112 mmol/L (98-107); Est GFR (African American) 109.3 ml/min; Est GFR (Non-African American) 94.3 ml/min; Globulin 3.2 gm/dl (2.5-4.0); Glucose 119 mg/dl (70-99(Fasting)); Sodium 141 mmol/L (136-145); Total Protein 6.2 gm/dl (6.0-8.3)
[2022-09-21 19:02] LABS: C Reactive Protein 0.93 mg/dl (0-0.5)
[2022-09-21] MEDS ORDERED: DAPTOmycin 300 MG in SYRINGE 0 ML IV SCH (19:30)
--- NOTE | 2022-09-21 19:54 | XRay Report ---
XR foot RT 2V CLINICAL HISTORY: infected right great toe, ?osteo. +MRSA COMPARISON: Right first toe radiographs April 06, 2020. FINDINGS: This study is compromised given difficulty positioning. No acute fracture is noted. There is no evidence for acute osteomyelitis within the right foot by radiography. Soft tissue swelling is noted. There is moderate vascular calcification. Lower leg soft tissue calcifications are chronic. Mo derate midfoot degenerative changes are present. IMPRESSION: 1. No acute fracture. No radiographic evidence for acute osteomyelitis. 2. Exam compromised given difficulty positioning. 3. Diffuse soft tissue swelling. ACT 112: Negative or not required by law. Electronically signed by: Lucas Lambert M.D. 09/21/2022 7:52 PM
--- NOTE | 2022-09-21 21:17 | History & Physical Report ---
Date of Service September 21, 2022 Assessment & Plan (1) Infection of right great toe due to methicillin resistant Staphylococcus aureus (MRSA): Plan: Patient is 67-year-old female with PMH DM II, hypertension, hypothyroidism, asthma, restrictive lung disease, THAD on BiPAP with 2 L O2, NG cirrhosis, hepatic encephalopathy, history esophageal varices, portal hypertensive gastropathy, pancytopenia, hypothyroidism, venous insufficiency, venous stasis dermatitis, obesity, urinary incontinence, cerebral palsy, ambulatory dysfunction wheelchair dependent, history of MRSA and others listed below presented to ER with complaint of right great toe redness, edema x 1 week. Denies F/C. Seen in urgent care on 09/17/2022 for right great toe redness and swelling and was started on doxycycline and mupirocin ointment. 09/17/2022 wound culture + MRSA Further assessment and plan per Dr. Huber (2) Ambulatory dysfunction: Plan: Chronic ambulatory dysfunction. Wheelchair-bound Prior home caregiver unavailable. unable to care for patient at home Considering placement to [facility] History NG cirrhosis, hepatic encephalopathy, h/o esophageal varices, h/o portal hypertensive gastropathy On lactulose and Linzess On nadolol at home DM type II A1c 7.4 on 05/19/22 On NovoLog, Lantus, Trulicity at home Pancytopenia Chronic pancytopenia WBC: 2.8 (baseline 2.8-4), Hgb: 10.6 (baseline 10-11), PLT: 67 (baseline 60s- 70s) per outpatient chart review Stable Hypothyroidism: On levothyroxine Chronic diastolic heart failure On Lasix at home Asthma Home inhalers THAD On BiPAP at bedtime at home Pt was seen and care coordinated with Dr Huber. See addendum for further assessment and plan. History of Present Illness Chief Complaint: "Toe infection" Primary Care Provider: Vanita Dunn MD Patient is 67-year-old female with PMH DM II, hypertension, hypothyroidism, asthma, restrictive lung disease, THAD on BiPAP with 2 L O2, NG cirrhosis, hepatic encephalopathy, history esophageal varices, portal hypertensive gastropa thy, pancytopenia, hypothyroidism, venous insufficiency, venous stasis dermatitis, obesity, urinary incontinence, cerebral palsy, ambulatory dysfunction wheelchair dependent, history of MRSA and others listed below presented to ER with complaint of right great toe redness, edema x 1 week as well as seeking placement for possible rehab. History obtained from patient and patient's . Is unsure if patient had an injury to tell however states has long toenails and suspects she hit her foot on something. has been trying to clean toe at home however patient complains of pain with palpation so limited intervention attempted. Denies any known fever, chills. Outpatient records reviewed and pt was seen in urgent care on 09/17/2022 for right great toe redness and swelling and was started on doxycycline and mupirocin ointment. 09/17/2022 wound culture obtained with results of MRSA per review. Patient and patient's unsure if any improvement over the past couple of days with antibiotic treatment. Doesn't think worsening erythema or edema. Denies noted red streaking. reports prior caregiver has been unavailable and he is struggling to take care of patient at home. He is having difficulty with transferring patient from wheelchair and has been unable to bathe patient. Denies recent falls. Denies fever/chills, diaphoresis, N/V/D/C, COLON, dizziness, syncope, neck pain, CP, SOB, increased cough, sore throat, choking, otalgia, rhinorrhea, abdominal pain, increased paresthesias, increased extremity edema, rashes, dysuria, hematuria. Allergies Allergy/AdvReac Type Severity Reaction Status Date / Time Penicillins Allergy Intermediate Rash Verified 09/21/22 20:53 adhesive tape Allergy Mild ITCHING Verified 09/21/22 20:53 perflutren AdvReac Intermediate LOWER BACK Verified 09/21/22 20:53 PAIN Home Medications Medication Instructions Recorded Confirmed Type albuterol sulfate 2.5 mg/3 mL 2.5 mg inhalation DIRECTED PRN 04/30/22 09/21/22 History (0.083 %) solution for nebulization Shortness Of Breath Or Wheezing albuterol sulfate 5 mg/mL(0.5 %) 2.5 mg inhalation DIRECTED PRN 04/30/22 09/21/22 History solution for nebulization Shortness Of Breath Or Wheezing aspirin 81 mg chewable tablet 81 mg PO DAILY 04/30/22 09/21/22 History atorvastatin 80 mg tablet 80 mg PO PM 04/30/22 09/21/22 History budesonide-formoterol HFA 160 2 puff inhalation BID PRN 04/30/22 09/21/22 History mcg-4.5 mcg/actuation aerosol Shortness Of Breath Or Wheezing inhaler escitalopram oxalate 20 mg tablet 20 mg PO DAILY 04/30/22 09/21/22 History fluticasone propionate 50 2 spray intranasal DAILY 04/30/22 09/21/22 History mcg/actuation nasal spray,suspension (Flonase Allergy Relief) furosemide 20 mg tablet 20 mg PO DAILY PRN .LOWER 04/30/22 09/21/22 History EXTREMITY SWELLING gabapentin 300 mg capsule 300 mg PO BID 04/30/22 09/21/22 History gabapentin 300 mg capsule 600 mg PO QPM 04/30/22 09/21/22 History insulin aspart U-100 100 unit/mL See Rx Instructions .Route .COMPLEX 04/30/22 09/21/22 History (3 mL) subcutaneous pen (Novolog FlexPen U-100 Insulin aspart) insulin glargine 100 unit/mL (3 50 unit subcut HS 04/30/22 09/21/22 History mL) subcutaneous pen (Lantus Solostar U-100 Insulin) isosorbide mononitrate 30 mg 30 mg PO DAILY 04/30/22 09/21/22 History tablet,extended release 24 hr lidocaine-prilocaine 2.5 %-2.5 % 1 applic topical DIRECTED PRN 04/30/22 09/21/22 History topical cream MEDI-PORT nadolol 40 mg tablet 40 mg PO DAILY 04/30/22 09/21/22 History pantoprazole 20 mg tablet,delayed 40 mg PO BID 04/30/22 09/21/22 History release potassium chloride 10 mEq 10 meq PO QAM 04/30/22 09/21/22 History tablet,extended release silver sulfadiazine 1 % topical 1 applic topical DAILY apply to 04/30/22 0 09/21/22 History cream wound spironolactone 25 mg tablet 50 mg PO DAILY 04/30/22 09/21/22 History trazodone 50 mg tablet 50 mg PO HS 04/30/22 09/21/22 History metformin 500 mg tablet,extended 500 mg PO DAILY 06/04/22 09/21/22 History release 24 hr lactulose 20 gram/30 mL oral 30 g (45 mL) PO TID #1,200 mL 06/08/22 09/21/22 Rx solution linaclotide 145 mcg capsule 290 mcg PO DAILY #30 caps 06/08/22 09/21/22 Rx (Linzess) doxycycline hyclate 100 mg capsule 100 mg PO AMHS 09/21/22 09/21/22 History dulaglutide 4.5 mg/0.5 mL 4.5 mg subcut WK 09/21/22 09/21/22 History subcutaneous pen injector (Trulicity) levothyroxine 150 mcg tablet 150 mcg PO QAM 09/21/22 09/21/22 History mupirocin 2 % topical ointment 1 applic topical BID 09/21/22 09/21/22 History oxybutynin chloride 5 mg tablet 5 mg PO BID 09/21/22 09/21/22 History Past Med/Surg History Medical History Ambulatory dysfunction Asthma DOES NOT USE INH. REPORTS USING NEB TREATMENTS BID. Bilateral lower extremity edema Cardiac murmur does not follow w/ cardio; echo 11/2017 [place] Cerebral palsy Chronic back pain Chronic pain Dark stools Diplopia reports intermittent x 1-2 weeks. pt reports PCP aware and scheduled for brain MRI 03/11 at [place]. 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 Major depressive disorder, recurrent, moderate Morbid obesity with BMI of 50.0-59.9, adult Obstructive sleep apnea CPAP + OXYGEN AT 2 LPM @ NIGHT On home oxygen therapy 2 LPM @ NIGHT + CPAP Osteoarthritis Pancreatic cyst Poor historian SOB (shortness of breath) on exertion Venous insufficiency Wheelchair bound Surgical History H/O wisdom tooth extraction History of Achilles tendon repair History of section History of colonoscopy History of dilatation and curettage History of esophagogastroduodenoscopy (EGD) EUS 02/22/2019 [facility] History of hip surgery History of strabismus surgery History of tooth extraction Family History Father Family history of diabetes mellitus Myocardial infarction, Onset Age: 61 Mother Myocardial infarction, Onset Age: 72 Sister Myocardial infarction Social History Smoking Status: Never smoker Second Hand Exposure: No; Hx Alcohol Use: No Hx Substance Use: No Preferred Language: Greenlandic Communication Ability: Effective Corporate Administrative Assistant Required: No Beliefs That Will Affect Care: None marital status: Current Living Situation: Family Current Living Situation Comment: Reports home health assists 5 times a week Other Information That Helps Us Care for You: No Feels Safe at Home: Yes Assistive Devices: Wheelchair Review of Systems Review of Systems: All systems reviewed & are unremarkable except as noted in HPI & below Physical Exam Physical Exam: General: no acute distress, obese, disheveled Head: normocephalic, atraumatic Eyes: conjunctiva non-injected, anicteric ENT: normal inspection external ears, nose, mucous membranes moist Neck: supple, trachea midline Lungs: clear, no respiratory distress, no wheezing/rhonchi/rales CV: RRR, + pretibial edema Abd: protuberant, normal BS, soft, non-tender Ext: no cyanosis, no calf tenderness; BLE: + Chronic skin discoloration, right foot/toes:+ Long thickened toenails throughout, right great toe lateral aspect with erythema, edema, controlled bleeding, tenderness to palpation. No red streaking noted Neuro: A&O x 3, normal affect Skin: As above in ext, otherwise warm, dry Results & Data Results & Data ([facility]) Vital Signs (Past 12 Hours) Vital Signs Temp Pulse Pulse Resp BP BP Pulse Ox 09/21/22 19:13 62 18 110/69 95 09/21/22 16:52 36.6 C 63 18 97/61 L 95 O2 Del Method 09/21/22 19:13 09/21/22 16:52 Room Air Laboratory Results Short CBC 09/21/22 Range/Units 18:13 WBC 2.87 L (4.8-10.8) K/ul Hgb 10.6 L (12.0-16.0) g/dl Hct 32.7 L (34.1-44.9) % Plt Count 67 L (130-400) K/uL BMP 09/21/22 18:13 Sodium 141 Potassium 4.0 Chloride 112 H Carbon Dioxide 23 BUN 11 Creatinine 0.60 Glucose 119 H Calcium 8.8 Liver Function 09/21/22 Range/Units 18:13 Total Bilirubin 1.4 H (0.2-1.0) mg/dl AST 38 (13-39) U/L ALT 29 (7-52) U/L Alkaline Phosphatase 94 (34-104) U/L Albumin 3.0 L (3.4-5.0) gm/dl Diagnostic Findings Foot X-Ray 09/21/22 19:04 XR foot RT 2V CLINICAL HISTORY: infected right great toe, ?osteo. +MRSA COMPARISON: Right first toe radiographs April 06, 2020. FINDINGS: This study is compromised given difficulty positioning. No acute fracture is noted. There is no evidence for acute osteomyelitis within the right foot by radiography. Soft tissue swelling is noted. There is moderate vascular calcification. Lower leg soft tissue calcifications are chronic. Moderate midfoot degenerative changes are present. IMPRESSION: 1. No acute fracture. No radiographic evidence for acute osteomyelitis. 2. Exam compromised given difficulty positioning. 3. Diffuse soft tissue swelling. ACT 112: Negative or not required by law. Electronically signed by: Lucas Lambert M.D. 09/21/2022 7:52 PM Supervising Physician Co-Signing Physician Notes IM ATTENDING : Patient seen and examined. History obtained from patient, family, and records. Preceding documentation by Ms. Arlyn Carney PA-C reviewed. FINAL ASSESSMENT AND PLAN as follows : Diabetic right great toe infection MRSA on outpatient wound CS No overt sepsis for now asthma/restrictive lung disease as per records, at baseline hx fibromyalgia HTN, stable hyperlipidemia, on statin Rx hx NAFLD cirrhosis, no overt decompensation THAD on BiPAP DM2 insulin requiring, reasonable control as of recent hemoglobin A1c of 7.4 last May 2022 chronic pancytopenia secondary to cirrhosis hx cerebral palsy as per records, hypothyroidism, euthyroid as of recent outpatient TSH Ambulatory dysfunction/functional disability GMF Doxycycline Offload RLE Podiatry consult Re: Diabetic toe infection basal bolus insulin, ISS BG goal [id number], carb count coverage PT OT eval Social service re: rehab placement DVT prophylaxis. SCDs RE thrombocytopenia Full code Patient requesting updates from providers. Mr. Syed Bustos, contact numbers [phone]. Text document was generated using [employer] voice recognition software. It may contain grammatical or spelling errors. Kindly contact undersigned for clarification of any documentation item in question.
[2022-09-21] MEDS ORDERED: GLUCOSE 10 TAB/TUBE PO PRN (23:14)
[2022-09-21] MEDS ORDERED: GLUCOSE 40% GEL 15 GM TUBE PO PRN (23:14)
[2022-09-21] MEDS ORDERED: CARBOHYDRATES FOR HYPOGLYCEMIA PO PRN (23:14)
[2022-09-21] MEDS ORDERED: DEXTROSE 50% 50 ML SYRINGE IV PRN (23:14)
[2022-09-21] MEDS ORDERED: GLUCAGON FOR INJ 1 MG VIAL SQ PRN (23:14)
[2022-09-21] MEDS ORDERED: INSULIN ASPART PER UNIT SC STA (23:19)
[2022-09-22] MEDS ORDERED: LANTUS PER UNIT CHARGE SQ STA (00:59)
[2022-09-22 02:27] LABS: Appearance Urine Clear (Clear); Bacteria Urine Automated Negative (Negative); Bilirubin Urine Negative (Negative); Blood Urine 3+ (Negative); Color Urine Yellow; Epithelial Cell Urine Auto >30 /lpf (0-5); Glucose Urine UA Negative (Negative); Ketones Urine Negative (Negative); Leukocyte Esterase Urine 1+ (Negative); Nitrite Urine Negative (Negative); Protein Urine Trace (Negative); RBC Urine Automated >30 /hpf (0-4); Specific Gravity Urine 1.015 (1.000-1.030); Urobilinogen Urine Negative (Negative); pH Urine 5.5 (4.5-7.5)
[2022-09-22] MEDS ORDERED: LACTULOSE SYRUP 20 GM/30 ML UDC PO SCH (03:20)
[2022-09-22] MEDS ORDERED: FLUTICASONE/VILANTEROL 100/25MCG 14 PUFFS/INHALER INH PRN (04:28)
[2022-09-22] MEDS: LEVOTHYROXINE SODIUM 150 MCG TABLET PO SCH (05:52)
[2022-09-22 07:07] LABS: Hematocrit (blood only) 29.1 % (34.1-44.9); Hemoglobin 9.6 g/dl (12.0-16.0); Mean Corpuscular Hemoglobin 37.6 pg (25.0-34.0); Mean Corpuscular Volume 114.1 fL (80.0-100.0); Mean Platelet Volume 13.3 fL (9.4-12.3); Platelet Count 51 K/uL (130-400); RDW Standard Deviation 67.7 fL (36.4-46.3); Red Blood Count 2.55 M/uL (3.93-5.22); White Blood Count 2.19 K/ul (4.8-10.8)
[2022-09-22 07:25] LABS: Basophils # (auto) 0.02 K/uL (0-0.2); Basophils % (auto) 0.9 %; Eosinophils # (auto) 0.15 K/uL (0-0.50); Eosinophils % (auto) 6.8 %; Immature Granulocytes # (auto) 0.01 K/uL (0.00-0.02); Immature Granulocytes % (auto) 0.5 %; Lymphocytes # (auto) 0.61 K/uL (1.2-3.4); Lymphocytes % (auto) 27.9 %; Monocytes # (auto) 0.26 K/uL (0.24-0.82); Monocytes % (auto) 11.9 %; Neutrophils # (auto) 1.14 K/uL (1.4-6.5); Ovalocytes 1+; Polychromasia 1+; Tear Drop Cells 2+
[2022-09-22] MEDS: INSULIN ASPART PER UNIT SC SCH ×4 (08:08→20:38)
[2022-09-22] MEDS: ACETAMINOPHEN 325 MG TAB PO PRN (08:08)
[2022-09-22] MEDS: ISOSORBIDE MONO EXTENDED REL 30 MG TABCR PO SCH (08:09)
[2022-09-22] MEDS: LINACLOTIDE 145 MCG CAPSULE PO SCH (08:09)
[2022-09-22] MEDS: LANTUS PER UNIT CHARGE SQ SCH ×2 (08:09→20:39)
[2022-09-22] MEDS: OXYBUTYNIN CHLORIDE 5 MG TAB PO SCH ×2 (08:09→20:45)
[2022-09-22] MEDS: PANTOprazole 40 MG TAB PO SCH ×2 (08:10→20:37)
[2022-09-22] MEDS: ESCITALOPRAM OXALATE 20 MG TAB PO SCH (08:10)
[2022-09-22] MEDS: SPIRONOLACTONE 25 MG TAB PO SCH (08:10)
[2022-09-22] MEDS: DOXYCYCLINE HYCLATE 100 MG CAP PO SCH ×2 (08:10→20:37)
[2022-09-22] MEDS: nadoloL 40 MG TAB PO SCH (08:10)
[2022-09-22] MEDS: FLUTICASONE PROPIONATE NA SPR 16 GM BTL SCH (08:11)
[2022-09-22] MEDS: GABAPENTIN 300 MG CAP PO SCH ×3 (08:11→20:37)
[2022-09-22] MEDS: LACTULOSE SYRUP 30 GM/45 ML UDP PO SCH ×3 (08:12→20:44)
[2022-09-22] MEDS: MUPIROCIN 2% OINT 22 GM TUBE TOP SCH ×2 (08:12→20:45)
--- NOTE | 2022-09-22 09:02 | Electrocardiogram Report ---
Test Reason : Blood Pressure : / mmHG Vent. 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
[2022-09-22] MEDS: cefTRIAXone SODIUM 2,000 MG in DEXTROSE 5% 50 ML IV SCH (09:57)
[2022-09-22] MEDS: traMADol HCL 50 MG TABLET PO PRN ×2 (13:04→20:33)
--- NOTE | 2022-09-22 15:50 | Hospitalist Progress Note ---
Date of Service September 22, 2022 Assessment & Plan (1) Infection of right great toe due to methicillin resistant Staphylococcus aureus (MRSA): Plan: Patient is 67-year-old female with PMH DM II, hypertension, hypothyroidism, asthma, restrictive lung disease, THAD on BiPAP with 2 L O2, NG cirrhosis, hepatic encephalopathy, history esophageal varices, portal hypertensive gastropathy, pancytopenia, hypothyroidism, venous insufficiency, venous stasis dermatitis, obesity, urinary incontinence, cerebral palsy, ambulatory dysfunction wheelchair dependent, history of MRSA and others listed below presented to ER with complaint of right great toe redness, edema x 1 week. Denies F/C. Seen in urgent care on 09/17/2022 for right great toe redness and swelling and was started on doxycycline and mupirocin ointment. 09/17/2022 wound culture + MRSA Diabetic right great toe infection MRSA on outpatient wound CS -Foot X ray:No acute fracture. No radiographic evidence for acute osteomyelitis. Exam compromised given difficulty positioning. Diffuse soft tissue swelling. -Blood Cultures pending -- Empirically on doxycycline, Rocephin Continue wound care Podiatry consulted Abnormal urinalysis Urine culture pending Asymptomatic (2) Ambulatory dysfunction: Plan: Chronic ambulatory dysfunction. Wheelchair-bound Prior home caregiver unavailable. unable to care for patient at home H/O fibromyalgia Considering placement to [facility] H/O NG cirrhosis, hepatic encephalopathy, h/o esophageal varices, h/o portal hypertensive gastropathy On lactulose and Linzess Continue nadolol DM type II A1c 7.4 on 05/19/22 On NovoLog, Lantus, Trulicity at home Pancytopenia Chronic pancytopenia WBC: 2.8 (baseline 2.8-4), Hgb: 10.6 (baseline 10-11), PLT: 67 (baseline 60s- 70s) per outpatient chart review Monitor CBC Hypothyroidism: On levothyroxine Chronic diastolic heart failure Monitor volume status Continue home diuretics Asthma Restrictive lung disease Continue home inhalers No signs of exacerbation THAD On BiPAP at bedtime at home H/O cerebral palsy Morbid obesity BMI 53 DVT Px: SCDs Re: Thrombocytopenia, anemia Admission and Anticipated Discharge Date Admission Date: September 21, 2022 Subjective Patient is seen and examined at bedside Denies any right foot pain Offers no complaints Denies any chest pain, shortness of air, dizziness, nausea, abdominal pain No new complaints Review of Systems Review of Systems: All systems reviewed & are unremarkable except as noted in Subjective Physical Exam Physical Exam: Physical Exam: Vitals signs as noted above General Appearance:Morbidly Obese, no apparent distress Head: normocephalic, Atraumatic Eyes: normal inspection, EOMI Neck: supple, Trachea midline Respiratory/Chest: Normal breath sounds, CTA, No accessory muscle use Cardiovascular: S1, S2, No murmur Abdomen/GI:Soft, Non tender, Bowel sounds present Extremities/Musculoskeletal:normal inspection, B/L LE non pitting edema, wounds R Toes Neurologic/Psych:AAOX3, grossly no focal neurological deficits Skin: normal color, warm Results & Data Results & Data ([facility]) Vital Signs (Past 12 Hours) Vital Signs Temp Pulse Resp BP Pulse Ox O2 Del Method O2 Flow Rate 09/22/22 11:13 36.7 C 70 16 104/62 94 Nasal Cannula 2 09/22/22 07:35 36.7 C 62 16 100/66 94 Nasal Cannula 2 Laboratory Results Short CBC 09/21/22 09/22/22 Range/Units 18:13 06:23 WBC 2.87 L 2.19 L (4.8-10.8) K/ul Hgb 10.6 L 9.6 L (12.0-16.0) g/dl Hct 32.7 L 29.1 L (34.1-44.9) % Plt Count 67 L 51 L (130-400) K/uL BMP 09/21/22 18:13 Sodium 141 Potassium 4.0 Chloride 112 H Carbon Dioxide 23 BUN 11 Creatinine 0.60 Glucose 119 H Calcium 8.8 Liver Function 09/21/22 Range/Units 18:13 Total Bilirubin 1.4 H (0.2-1.0) mg/dl AST 38 (13-39) U/L ALT 29 (7-52) U/L Alkaline Phosphatase 94 (34-104) U/L Albumin 3.0 L (3.4-5.0) gm/dl Urine 09/22/22 Range/Units Unknown Urine Color Yellow Urine Appearance Clear (Clear) Urine pH 5.5 (4.5-7.5) Ur Specific [place] 1.015 (1.000-1.030) Urine Protein Trace H (Negative) Urine Glucose (UA) Negative (Negative)
[2022-09-22] MEDS: traZODone HCL 50 MG TAB PO SCH (20:33)
[2022-09-22] MEDS: ATORVASTATIN 40 MG TAB PO SCH (20:38)
--- NOTE | 2022-09-22 21:41 | Orthopedic Consultation ---
Date of Consultation September 22, 2022 Assessment & Plan (1) Infection of right great toe due to methicillin resistant Staphylococcus aureus (MRSA): Patient, seen, evaluated and treated. Patient failed outpatient antibiotics oral doxycycline and mupirocin ointment for treatment of MRSA. Reviewed x-rays showing no osseous involvement 09/17/2022 wound culture + MRSA Patient dystrophic nails appear to be causation of wound. Plan to reduce nail plates. Thank you for allowing me to participate in the care of this Patient (2) Diabetes: (3) Diabetic foot ulcer: (4) Gangrene of toe of right foot: History of Present Illness Attending Physician: Que Dale MD History of Present Illness Patient is 67-year-old female seen at bedside with present who helps with history and care. Patient has a PMH DM II, hypertension, hypothyroidism, asthma, restrictive lung disease, THAD on BiPAP with 2 L O2, NG cirrhosis, hepatic encephalopathy, history esophageal varices, portal hypertensive gastropathy, pancytopenia, hypothyroidism, venous insufficiency, venous stasis dermatitis, obesity, urinary incontinence, cerebral palsy, ambulatory dysfunction wheelchair dependent, history of MRSA. Patient was seen in [facility] ED with complaint of right great toe redness, edema x 1 week as well as seeking placement for possible rehab. Patient was seen in urgent care on 09/17/2022 for right great toe redness and swelling and was started on doxycycline and mupirocin ointment. 09/17/2022 wound culture obtained with results of MRSA. Allergies Allergy/AdvReac Type Severity Reaction Status Date / Time Penicillins Allergy Intermediate Rash Verified 09/21/22 20:53 adhesive tape Allergy Mild ITCHING Verified 09/21/22 20:53 perflutren AdvReac Intermediate LOWER BACK Verified 09/21/22 20:53 PAIN Home Medications Medication Instructions Recorded Confirmed Type albuterol sulfate 2.5 mg/3 mL 2.5 mg inhalation DIRECTED PRN 04/30/22 09/21/22 History (0.083 %) solution for nebulization Shortness Of Breath Or Wheezing albuterol sulfate 5 mg/mL(0.5 %) 2.5 mg inhalation DIRECTED PRN 04/30/22 09/21/22 History solution for nebulization Shortness Of Breath Or Wheezing aspirin 81 mg chewable tablet 81 mg PO DAILY 04/30/22 09/21/22 History atorvastatin 80 mg tablet 80 mg PO PM 04/30/22 09/21/22 History budesonide-formoterol HFA 160 2 puff inhalation BID PRN 04/30/22 09/21/22 History mcg-4.5 mcg/actuation aerosol Shortness Of Breath Or Wheezing inhaler escitalopram oxalate 20 mg tablet 20 mg PO DAILY 04/30/22 09/21/22 History fluticasone propionate 50 2 spray intranasal DAILY 04/30/22 09/21/22 History mcg/actuation nasal spray,suspension (Flonase Allergy Relief) furosemide 20 mg tablet 20 mg PO DAILY PRN .LOWER 04/30/22 09/21/22 History EXTREMITY SWELLING gabapentin 300 mg capsule 300 mg PO BID 04/30/22 09/21/22 History gabapentin 300 mg capsule 600 mg PO QPM 04/30/22 09/21/22 History insulin aspart U-100 100 unit/mL See Rx Instructions .Route .COMPLEX 04/30/22 09/21/22 History (3 mL) subcutaneous pen (Novolog FlexPen U-100 Insulin aspart) insulin glargine 100 unit/mL (3 50 unit subcut HS 04/30/22 09/21/22 History mL) subcutaneous pen (Lantus Solostar U-100 Insulin) isosorbide mononitrate 30 mg 30 mg PO DAILY 04/30/22 09/21/22 History tablet,extended release 24 hr lidocaine-prilocaine 2.5 %-2.5 % 1 applic topical DIRECTED PRN 04/30/22 09/21/22 History topical cream MEDI-PORT nadolol 40 mg tablet 40 mg PO DAILY 04/30/22 09/21/22 History pantoprazole 20 mg tablet,delayed 40 mg PO BID 04/30/22 09/21/22 History release potassium chloride 10 mEq 10 meq PO QAM 04/30/22 09/21/22 History tablet,extended release silver sulfadiazine 1 % topical 1 applic topical DAILY apply to 04/30/22 09/21/22 History cream wound spironolactone 25 mg tablet 50 mg PO DAILY 04/30/22 09/21/22 History trazodone 50 mg tablet 50 mg PO HS 04/30/22 09/21/22 History metformin 500 mg tablet,extended 500 mg PO DAILY 06/04/22 09/21/22 History release 24 hr lactulose 20 gram/30 mL oral 30 g (45 mL) PO TID #1,200 mL 06/08/22 09/21/22 Rx solution linaclotide 145 mcg capsule 290 mcg PO DAILY #30 caps 06/08/22 09/21/22 Rx (Linzess) doxycycline hyclate 100 mg capsule 100 mg PO AMHS 09/21/22 09/21/22 History dulaglutide 4.5 mg/0.5 mL 4.5 mg subcut WK 09/21/22 09/21/22 History subcutaneous pen injector (Trulicity) levothyroxine 150 mcg tablet 150 mcg PO QAM 09/21/22 09/21/22 History mupirocin 2 % topical ointment 1 applic topical BID 09/21/22 09/21/22 History oxybutynin chloride 5 mg tablet 5 mg PO BID 09/21/22 09/21/22 History Patient History Medical History Ambulatory dysfunction Asthma DOES NOT USE INH. REPORTS USING NEB TREATMENTS BID. Bilateral lower extremity edema Cardiac murmur does not follow w/ cardio; echo 11/2017 [place] Cerebral palsy Chronic back pain Chronic pain Dark stools Diplopia reports intermittent x 1-2 weeks. pt reports PCP aware and scheduled for brain MRI 03/11 at [place]. 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 Major depressive disorder, recurrent, moderate Morbid obesity with BMI of 50.0-59.9, adult Obstructive sleep apnea CPAP + OXYGEN AT 2 LPM @ NIGHT On home oxygen therapy 2 LPM @ NIGHT + CPAP Osteoarthritis Pancreatic cyst Poor historian SOB (shortness of breath) on exertion Venous insufficiency Wheelchair bound Surgical History H/O wisdom tooth extraction History of Achilles tendon repair History of section History of colonoscopy History of dilatation and curettage History of esophagogastroduodenoscopy (EGD) EUS 02/22/2019 [facility] History of hip surgery History of strabismus surgery History of tooth extraction Family History Father Family history of diabetes mellitus Myocardial infarction, Onset Age: 61 Mother Myocardial infarction, Onset Age: 72 Sister Myocardial infarction Social History Smoking Status: Never smoker Second Hand Exposure: No; Hx Alcohol Use: No Hx Substance Use: No Preferred Language: Estonian Communication Ability: Effective Kettle Operator Required: No Beliefs That Will Affect Care: None marital status: Current Living Situation: Family Current Living Situation Comment: Reports home health assists 5 times a week Other Information That Helps Us Care for You: No Feels Safe at Home: Yes Assistive Devices: CPAP, Hospital Bed, Mechanical Lift, Oxygen - at Night and Scooter/Electric Scooter Review of Systems Review of Systems: All systems reviewed & are unremarkable except as noted in HPI & below Physical Exam Constitutional: well developed, well nourished and + morbidly obese ENMT: external ear and nose normal, oropharynx normal Respiratory: normal respiratory effort Cardiovascular: Rate/Rhythm: regular rate and regular rhythm Pedal pulses palpable. FLOOR CARE TECHNICIAN wnl. Proximal to distal cooling wnl. Musculoskeletal: no cyanosis or clubbing, extremities motor strength 5/5 Neurologic: Epicritic sensation intact Psychiatric: A+Ox3, euthymic affect Results & Data ([facility]) Vital Signs (Past 12 Hours) Vital Signs Temp Pulse Pulse Resp BP BP Pulse Ox 09/22/22 19:00 37.2 C 75 20 90/55 L 94 09/22/22 11:13 36.7 C 70 16 104/62 94 O2 Del Method O2 Flow Rate 09/22/22 19:00 Room Air 09/22/22 11:13 Nasal Cannula 2 Diagnostic Findings XR foot RT 2V CLINICAL HISTORY: infected right great toe, ?osteo. +MRSA COMPARISON: Right first toe radiographs April 06, 2020. FINDINGS: This study is compromised given difficulty positioning. No acute fracture is noted. There is no evidence for acute osteomyelitis within the right foot by radiography. Soft tissue swelling is noted. There is moderate vascular calcification. Lower leg soft tissue calcifications are chronic. Moderate midfoot degenerative changes are present. IMPRESSION: 1. No acute fracture. No radiographic evidence for acute osteomyelitis. 2. Exam compromised given difficulty positioning. 3. Diffuse soft tissue swelling.
[2022-09-23] MEDS: LEVOTHYROXINE SODIUM 150 MCG TABLET PO SCH (05:11)
[2022-09-23] MEDS: FLUTICASONE PROPIONATE NA SPR 16 GM BTL SCH (08:42)
[2022-09-23] MEDS: INSULIN ASPART PER UNIT SC SCH ×4 (08:42→22:03)
[2022-09-23] MEDS: LANTUS PER UNIT CHARGE SQ SCH ×2 (08:42→22:04)
[2022-09-23] MEDS: LACTULOSE SYRUP 30 GM/45 ML UDP PO SCH ×3 (08:43→22:07)
[2022-09-23] MEDS: SPIRONOLACTONE 25 MG TAB PO SCH (08:43)
[2022-09-23] MEDS: nadoloL 40 MG TAB PO SCH (08:43)
[2022-09-23] MEDS: GABAPENTIN 300 MG CAP PO SCH ×3 (08:43→22:10)
[2022-09-23] MEDS: LINACLOTIDE 145 MCG CAPSULE PO SCH (08:43)
[2022-09-23] MEDS: PANTOprazole 40 MG TAB PO SCH ×2 (08:44→22:11)
[2022-09-23] MEDS: DOXYCYCLINE HYCLATE 100 MG CAP PO SCH ×2 (08:44→22:09)
[2022-09-23] MEDS: MUPIROCIN 2% OINT 22 GM TUBE TOP SCH ×2 (08:44→22:10)
[2022-09-23] MEDS: OXYBUTYNIN CHLORIDE 5 MG TAB PO SCH ×2 (08:44→22:11)
[2022-09-23] MEDS: ESCITALOPRAM OXALATE 20 MG TAB PO SCH (08:44)
[2022-09-23] MEDS: ISOSORBIDE MONO EXTENDED REL 30 MG TABCR PO SCH (08:44)
[2022-09-23] MEDS: cefTRIAXone SODIUM 2,000 MG in DEXTROSE 5% 50 ML IV SCH (08:48)
[2022-09-23] MEDS ORDERED: SODIUM CHLORIDE 0.9% 500 ML IV ONE (09:10)
[2022-09-23 09:17] LABS: Hematocrit (blood only) 30.4 % (34.1-44.9); Hemoglobin 9.9 g/dl (12.0-16.0); Mean Corpuscular Hemoglobin 37.8 pg (25.0-34.0); Mean Corpuscular Hgb Conc 32.6 g/dL (32.0-36.0); Mean Platelet Volume 12.9 fL (9.4-12.3); Platelet Count 67 K/uL (130-400); RDW Coefficient of Variation 16.2 % (11.5-14.5); RDW Standard Deviation 70.2 fL (36.4-46.3); Red Blood Count 2.62 M/uL (3.93-5.22); White Blood Count 2.46 K/ul (4.8-10.8)
[2022-09-23 10:14] LABS: BUN Creatinine Ratio 22.6 (10-20); Calcium 8.1 mg/dl (8.5-10.1); Creatinine Clr Calc Pharmacy 106.5 ml/min; Est GFR (African American) 108.1 ml/min; Est GFR (Non-African American) 93.3 ml/min; Magnesium 1.6 mg/dl (1.7-2.4); Potassium 3.6 mmol/L (3.5-5.1)
[2022-09-23] MEDS ORDERED: MAGNESIUM SULFATE / D5W 1 GM/100 ML BAG IV ONE (14:34)
--- NOTE | 2022-09-23 18:44 | Hospitalist Progress Note ---
Date of Service September 23, 2022 Assessment & Plan (1) Infection of right great toe due to methicillin resistant Staphylococcus aureus (MRSA): Plan: Patient is 67-year-old female with PMH DM II, hypertension, hypothyroidism, asthma, restrictive lung disease, THAD on BiPAP with 2 L O2, NG cirrhosis, hepatic encephalopathy, history esophageal varices, portal hypertensive gastropathy, pancytopenia, hypothyroidism, venous insufficiency, venous stasis dermatitis, obesity, urinary incontinence, cerebral palsy, ambulatory dysfunction wheelchair dependent, history of MRSA and others listed below presented to ER with complaint of right great toe redness, edema x 1 week. Denies F/C. Seen in urgent care on 09/17/2022 for right great toe redness and swelling and was started on doxycycline and mupirocin ointment. 09/17/2022 wound culture + MRSA Diabetic right great toe infection MRSA on outpatient wound CS Likely due to dystrophic nails Failed outpatient doxycycline, mupirocin -Foot X ray:No acute fracture. No radiographic evidence for acute osteomyelitis. Exam compromised given difficulty positioning. Diffuse soft tissue swelling. -Blood Cultures : Negative to date --Continue doxycycline, Rocephin Continue wound care Appreciate Podiatry Input Abnormal urinalysis Urine culture : Preliminary-Negative Asymptomatic (2) Ambulatory dysfunction: Plan: Chronic ambulatory dysfunction. Wheelchair-bound Prior home caregiver unavailable. unable to care for patient at home H/O fibromyalgia Considering placement to [facility] H/O NG cirrhosis, hepatic encephalopathy, h/o esophageal varices, h/o portal hypertensive gastropathy On lactulose and Linzess Continue nadolol DM type II A1c 7.4 on 05/19/22 On NovoLog, Lantus, Trulicity at home Pancytopenia Chronic pancytopenia WBC: 2.8 (baseline 2.8-4), Hgb: 10.6 (baseline 10-11), PLT: 67 (baseline 60s- 70s) per outpatient chart review Monitor CBC Hypothyroidism: On levothyroxine Chronic diastolic heart failure Monitor volume status Continue home diuretics Asthma Restrictive lung disease Continue home inhalers No signs of exacerbation THAD On BiPAP at bedtime at home H/O cerebral palsy Morbid obesity BMI 53 DVT Px: SCDs Re: Thrombocytopenia, anemia Admission and Anticipated Discharge Date Admission Date: September 21, 2022 Subjective Patient is seen and examined at bedside States having minimal right toe pain Denies any chest pain, dyspnea, dizziness, nausea, abdominal pain No other complaints Review of Systems Review of Systems: All systems reviewed & are unremarkable except as noted in Subjective Physical Exam Physical Exam: Physical Exam: Vitals signs as noted above General Appearance:Morbidly Obese, no apparent distress Head: normocephalic, Atraumatic Eyes: normal inspection, EOMI Neck: supple, Trachea midline Respiratory/Chest: Normal breath sounds, CTA, No accessory muscle use Cardiovascular: S1, S2, No murmur Abdomen/GI:Soft, Non tender, Bowel sounds present Extremities/Musculoskeletal:normal inspection, B/L LE non pitting edema, wounds R Toes Neurologic/Psych:AAOX3, grossly no focal neurological deficits Skin: normal color, warm Results & Data Results & Data ([facility]) Vital Signs (Past 12 Hours) Vital Signs Temp Pulse Pulse Resp BP BP Pulse Ox 09/23/22 15:15 36.8 C 70 20 84/46 L 93 09/23/22 10:48 36.9 C 70 18 115/76 92 09/23/22 09:55 95 09/23/22 08:11 37.4 C 74 18 90/60 L 92 09/23/22 07:37 36.7 C 69 20 86/54 L 94 O2 Del Method 09/23/22 15:15 Room Air 09/23/22 10:48 Room Air 09/23/22 09:55 Room Air 09/23/22 08:11 Room Air 09/23/22 07:37 Room Air Laboratory Results Short CBC 09/23/22 Range/Units 08:49 WBC 2.46 L (4.8-10.8) K/ul Hgb 9.9 L (12.0-16.0) g/dl Hct 30.4 L (34.1-44.9) % Plt Count 67 L (130-400) K/uL BMP 09/23/22 08:49 Sodium 140 Potassium 3.6 Chloride 111 H Carbon Dioxide 24 BUN 14 Creatinine 0.62 Glucose 146 H Calcium 8.1 L
[2022-09-23] MEDS: ATORVASTATIN 40 MG TAB PO SCH (22:08)
[2022-09-23] MEDS: traMADol HCL 50 MG TABLET PO PRN (22:09)
[2022-09-23] MEDS: traZODone HCL 50 MG TAB PO SCH (22:12)
[2022-09-24] MEDS: LEVOTHYROXINE SODIUM 150 MCG TABLET PO SCH (05:50)
--- NOTE | 2022-09-24 06:30 | Orthopedic Progress Note ---
Date of Service September 23, 2022 Assessment & Plan (1) Infection of right great toe due to methicillin resistant Staphylococcus aureus (MRSA): Plan: Patient, seen, evaluated and treated. 09/17/2022 wound culture + MRSA Reviewed x-rays showing no osseous involvement Patient dystrophic right hallux nail plate ingrown. Slant back procedure applied to right hallux nail plate with out incident. Patient tolerated procedure well. Thank you for allowing me to participate in the care of this Patient. (2) Diabetes: (3) Diabetic foot ulcer: (4) Gangrene of toe of right foot: Admission and Anticipated Discharge Date Admission Date: September 21, 2022 Subjective Patient is seen at bedside. Her is present who helps with history and care. Patient denies constitutional symptoms. She has no complaints. Physical Exam Constitutional: well developed, well nourished and + morbidly obese ENMT: external ear and nose normal, oropharynx normal Respiratory: normal respiratory effort Cardiovascular: Rate/Rhythm: regular rate and regular rhythm regular rate and regular rhythm Pedal pulses palpable. ORGANIC CHEMISTRY TEACHER wnl. Proximal to distal cooling wnl. Musculoskeletal: no cyanosis or clubbing, extremities motor strength 5/5 Skin: Right hallux medial border ingrown nail plate. Hyper granulation tissue at nail border. Serous sanguinous drainage. Neurologic: Epicritic sensation intact Psychiatric: A+Ox3, euthymic affect Results & Data ([facility]) Vital Signs (Past 12 Hours) Vital Signs Temp Pulse Resp BP Pulse Ox O2 Del Method 09/24/22 02:06 Room Air 09/23/22 22:13 36.9 C 72 18 136/65 94 Room Air
[2022-09-24 07:42] LABS: Hematocrit (blood only) 28.7 % (34.1-44.9); Hemoglobin 9.4 g/dl (12.0-16.0); Mean Corpuscular Hemoglobin 38.2 pg (25.0-34.0); Mean Corpuscular Hgb Conc 32.8 g/dL (32.0-36.0); Mean Corpuscular Volume 116.7 fL (80.0-100.0); Mean Platelet Volume 13.2 fL (9.4-12.3); Platelet Count 49 K/uL (130-400); RDW Standard Deviation 68.8 fL (36.4-46.3); Red Blood Count 2.46 M/uL (3.93-5.22)
[2022-09-24 07:59] LABS: BUN Creatinine Ratio 17.6 (10-20); Calcium 8.2 mg/dl (8.5-10.1); Creatinine Clr Calc Pharmacy 97.1 ml/min; Est GFR (African American) 104.9 ml/min; Est GFR (Non-African American) 90.5 ml/min; Magnesium 1.8 mg/dl (1.7-2.4); Potassium 3.7 mmol/L (3.5-5.1)
[2022-09-24] MEDS: ESCITALOPRAM OXALATE 20 MG TAB PO SCH (09:07)
[2022-09-24] MEDS: ISOSORBIDE MONO EXTENDED REL 30 MG TABCR PO SCH (09:07)
[2022-09-24] MEDS: PANTOprazole 40 MG TAB PO SCH ×2 (09:07→19:38)
[2022-09-24] MEDS: DOXYCYCLINE HYCLATE 100 MG CAP PO SCH ×2 (09:07→19:38)
[2022-09-24] MEDS: SPIRONOLACTONE 25 MG TAB PO SCH (09:08)
[2022-09-24] MEDS: LINACLOTIDE 145 MCG CAPSULE PO SCH (09:08)
[2022-09-24] MEDS: GABAPENTIN 300 MG CAP PO SCH ×3 (09:08→19:37)
[2022-09-24] MEDS: nadoloL 40 MG TAB PO SCH (09:09)
[2022-09-24] MEDS: OXYBUTYNIN CHLORIDE 5 MG TAB PO SCH ×2 (09:09→19:37)
[2022-09-24] MEDS: LACTULOSE SYRUP 30 GM/45 ML UDP PO SCH ×3 (09:09→19:39)
[2022-09-24] MEDS: FLUTICASONE PROPIONATE NA SPR 16 GM BTL SCH (09:10)
[2022-09-24] MEDS: INSULIN ASPART PER UNIT SC SCH ×4 (09:17→21:14)
[2022-09-24] MEDS: LANTUS PER UNIT CHARGE SQ SCH ×2 (09:18→21:14)
[2022-09-24] MEDS: cefTRIAXone SODIUM 2,000 MG in DEXTROSE 5% 50 ML IV SCH (10:00)
[2022-09-24] MEDS: MUPIROCIN 2% OINT 22 GM TUBE TOP SCH ×2 (12:55→19:40)
--- NOTE | 2022-09-24 15:30 | Hospitalist Progress Note ---
Date of Service September 24, 2022 Assessment & Plan (1) Infection of right great toe due to methicillin resistant Staphylococcus aureus (MRSA): Plan: Patient is 67-year-old female with PMH DM II, hypertension, hypothyroidism, asthma, restrictive lung disease, THAD on BiPAP with 2 L O2, NG cirrhosis, hepatic encephalopathy, history esophageal varices, portal hypertensive gastropathy, pancytopenia, hypothyroidism, venous insufficiency, venous stasis dermatitis, obesity, urinary incontinence, cerebral palsy, ambulatory dysfunction wheelchair dependent, history of MRSA and others listed below presented to ER with complaint of right great toe redness, edema x 1 week. Denies F/C. Seen in urgent care on 09/17/2022 for right great toe redness and swelling and was started on doxycycline and mupirocin ointment. 09/17/2022 wound culture + MRSA Diabetic right great toe infection MRSA on outpatient wound CS Likely due to dystrophic ingrowing nail plate of right hallux Failed outpatient doxycycline, mupirocin -Foot X ray:No acute fracture. No radiographic evidence for acute osteomyelitis. Exam compromised given difficulty positioning. Diffuse soft tissue swelling. -S/P Clipping of Toe Nail -Blood Cultures : Negative to date --Continue doxycycline, Rocephin Continue wound care Appreciate Podiatry Input Abnormal urinalysis Urine culture : Negative Asymptomatic (2) Ambulatory dysfunction: Plan: Chronic ambulatory dysfunction. Wheelchair-bound Prior home caregiver unavailable. unable to care for patient at home H/O fibromyalgia Considering placement to [facility] H/O NG cirrhosis, hepatic encephalopathy, h/o esophageal varices, h/o portal hypertensive gastropathy On lactulose and Linzess Continue nadolol DM type II A1c 7.4 on 05/19/22 On NovoLog, Lantus, Trulicity at home Pancytopenia Chronic pancytopenia WBC: 2.8 (baseline 2.8-4), Hgb: 10.6 (baseline 10-11), PLT: 67 (baseline 60s- 70s) per outpatient chart review Monitor CBC Hypothyroidism: On levothyroxine Chronic diastolic heart failure Monitor volume status Continue home diuretics Asthma Restrictive lung disease Continue home inhalers No signs of exacerbation THAD On BiPAP at bedtime at home H/O cerebral palsy Morbid obesity BMI 53 DVT Px: SCDs Re: Thrombocytopenia, anemia Admission and Anticipated Discharge Date Admission Date: September 21, 2022 Subjective Patient is seen and examined at bedside No new complaints Right toe pain is better Denies any chest pain, dyspnea, dizziness, nausea, abdominal pain No other complaints Review of Systems Review of Systems: All systems reviewed & are unremarkable except as noted in Subjective Physical Exam Physical Exam: Physical Exam: Vitals signs as noted above General Appearance:Morbidly Obese, no apparent distress Head: normocephalic, Atraumatic Eyes: normal inspection, EOMI Neck: supple, Trachea midline Respiratory/Chest: Normal breath sounds, CTA, No accessory muscle use Cardiovascular: S1, S2, No murmur Abdomen/GI:Soft, Non tender, Bowel sounds present Extremities/Musculoskeletal:normal inspection, B/L LE non pitting edema, wounds R Toes Neurologic/Psych:AAOX3, grossly no focal neurological deficits Skin: normal color, warm Results & Data Results & Data ([facility]) Vital Signs (Past 12 Hours) Vital Signs Temp Pulse Resp BP Pulse Ox O2 Del Method 09/24/22 07:51 36.9 C 67 20 116/73 94 Room Air
[2022-09-24] MEDS: traMADol HCL 50 MG TABLET PO PRN (19:36)
[2022-09-24] MEDS: ATORVASTATIN 40 MG TAB PO SCH (19:38)
[2022-09-24] MEDS: traZODone HCL 50 MG TAB PO SCH (19:39)
[2022-09-25] MEDS: LEVOTHYROXINE SODIUM 150 MCG TABLET PO SCH (06:26)
[2022-09-25] MEDS: GABAPENTIN 300 MG CAP PO SCH ×3 (08:10→21:05)
[2022-09-25] MEDS: ESCITALOPRAM OXALATE 20 MG TAB PO SCH (08:10)
[2022-09-25] MEDS: ISOSORBIDE MONO EXTENDED REL 30 MG TABCR PO SCH (08:10)
[2022-09-25] MEDS: PANTOprazole 40 MG TAB PO SCH ×2 (08:10→21:05)
[2022-09-25] MEDS: LINACLOTIDE 145 MCG CAPSULE PO SCH (08:10)
[2022-09-25] MEDS: DOXYCYCLINE HYCLATE 100 MG CAP PO SCH ×2 (08:10→21:04)
[2022-09-25] MEDS: SPIRONOLACTONE 25 MG TAB PO SCH (08:11)
[2022-09-25] MEDS: nadoloL 40 MG TAB PO SCH (08:11)
[2022-09-25] MEDS: FLUTICASONE PROPIONATE NA SPR 16 GM BTL SCH (08:12)
[2022-09-25] MEDS: MUPIROCIN 2% OINT 22 GM TUBE TOP SCH ×2 (08:12→21:06)
[2022-09-25] MEDS: LACTULOSE SYRUP 30 GM/45 ML UDP PO SCH ×3 (08:12→21:07)
[2022-09-25] MEDS: OXYBUTYNIN CHLORIDE 5 MG TAB PO SCH ×2 (08:13→21:05)
[2022-09-25] MEDS: LANTUS PER UNIT CHARGE SQ SCH ×2 (08:19→21:03)
[2022-09-25] MEDS: INSULIN ASPART PER UNIT SC SCH ×4 (08:19→21:02)
[2022-09-25] MEDS: cefTRIAXone SODIUM 2,000 MG in DEXTROSE 5% 50 ML IV SCH (09:37)
--- NOTE | 2022-09-25 16:30 | Hospitalist Progress Note ---
Date of Service September 25, 2022 Assessment & Plan (1) Infection of right great toe due to methicillin resistant Staphylococcus aureus (MRSA): Plan: Patient is 67-year-old female with PMH DM II, hypertension, hypothyroidism, asthma, restrictive lung disease, THAD on BiPAP with 2 L O2, GN cirrhosis, hepatic encephalopathy, history esophageal varices, portal hypertensive gastropathy, pancytopenia, hypothyroidism, venous insufficiency, venous stasis dermatitis, obesity, urinary incontinence, cerebral palsy, ambulatory dysfunction wheelchair dependent, history of MRSA and others listed below presented to ER with complaint of right great toe redness, edema x 1 week. Denies F/C. Seen in urgent care on 09/17/2022 for right great toe redness and swelling and was started on doxycycline and mupirocin ointment. 09/17/2022 wound culture + MRSA Diabetic right great toe infection MRSA on outpatient wound CS Likely due to dystrophic ingrowing nail plate of right hallux Failed outpatient doxycycline, mupirocin -Foot X ray:No acute fracture. No radiographic evidence for acute osteomyelitis. Exam compromised given difficulty positioning. Diffuse soft tissue swelling. -S/P Clipping of Toe Nail -Blood Cultures : Negative to date --Continue doxycycline, Rocephin Continue wound care Appreciate Podiatry Input Plan to discharge tomorrow if able Abnormal urinalysis Urine culture : Negative Asymptomatic (2) Ambulatory dysfunction: Plan: Chronic ambulatory dysfunction. Wheelchair-bound Prior home caregiver unavailable. unable to care for patient at home H/O fibromyalgia Considering placement to [facility] H/O NG cirrhosis, hepatic encephalopathy, h/o esophageal varices, h/o portal hypertensive gastropathy On lactulose and Linzess Continue nadolol DM type II A1c 7.4 on 05/19/22 On NovoLog, Lantus, Trulicity at home Pancytopenia Chronic pancytopenia WBC: 2.8 (baseline 2.8-4), Hgb: 10.6 (baseline 10-11), PLT: 67 (baseline 60s- 70s) per outpatient chart review Monitor CBC Hypothyroidism: On levothyroxine Chronic diastolic heart failure Monitor volume status Continue home diuretics Asthma Restrictive lung disease Continue home inhalers No signs of exacerbation THAD On BiPAP at bedtime at home H/O cerebral palsy Morbid obesity BMI 53 DVT Px: SCDs Re: Thrombocytopenia, anemia Admission and Anticipated Discharge Date Admission Date: September 21, 2022 Subjective Patient is seen and examined at bedside Right toe pain much improved Denies any chest pain, dyspnea, dizziness, nausea, abdominal pain Review of Systems Review of Systems: All systems reviewed & are unremarkable except as noted in Subjective Physical Exam Physical Exam: Physical Exam: Vitals signs as noted above General Appearance:Morbidly Obese, no apparent distress Head: normocephalic, Atraumatic Eyes: normal inspection, EOMI Neck: supple, Trachea midline Respiratory/Chest: Normal breath sounds, CTA, No accessory muscle use Cardiovascular: S1, S2, No murmur Abdomen/GI:Soft, Non tender, Bowel sounds present Extremities/Musculoskeletal:normal inspection, B/L LE non pitting edema, wounds R Toes Neurologic/Psych:AAOX3, grossly no focal neurological deficits Skin: normal color, warm Results & Data Results & Data ([facility]) Vital Signs (Past 12 Hours) Vital Signs Temp Pulse Pulse Resp BP BP Pulse Ox 09/25/22 15:44 36.9 C 62 16 102/68 95 09/25/22 14:00 09/25/22 13:00 36.9 C 67 16 114/76 96 09/25/22 08:00 09/25/22 08:21 66 116/72 09/25/22 07:25 36.7 C 66 20 96/55 L 94 O2 Del Method 09/25/22 15:44 Room Air 09/25/22 14:00 Room Air 09/25/22 13:00 Room Air 09/25/22 08:00 Room Air 09/25/22 08:21 09/25/22 07:25 Room Air
[2022-09-25] MEDS: ATORVASTATIN 40 MG TAB PO SCH (21:04)
[2022-09-25] MEDS: traZODone HCL 50 MG TAB PO SCH (21:06)
[2022-09-26] MEDS: LEVOTHYROXINE SODIUM 150 MCG TABLET PO SCH (05:58)
[2022-09-26 06:38] LABS: Hematocrit (blood only) 28.3 % (34.1-44.9); Hemoglobin 9.3 g/dl (12.0-16.0); Mean Corpuscular Hgb Conc 32.9 g/dL (32.0-36.0); Mean Corpuscular Volume 115.5 fL (80.0-100.0); Mean Platelet Volume 13.7 fL (9.4-12.3); Platelet Count 50 K/uL (130-400); RDW Standard Deviation 67.8 fL (36.4-46.3); Red Blood Count 2.45 M/uL (3.93-5.22); White Blood Count 2.29 K/ul (4.8-10.8)
[2022-09-26 06:42] LABS: Calcium 8.3 mg/dl (8.5-10.1); Creatinine Clr Calc Pharmacy 110.1 ml/min; Est GFR (African American) 109.3 ml/min; Est GFR (Non-African American) 94.3 ml/min; Magnesium 1.7 mg/dl (1.7-2.4); Potassium 3.8 mmol/L (3.5-5.1)
[2022-09-26] MEDS: DOXYCYCLINE HYCLATE 100 MG CAP PO SCH ×2 (09:03→21:54)
[2022-09-26] MEDS: GABAPENTIN 300 MG CAP PO SCH ×3 (09:03→21:52)
[2022-09-26] MEDS: OXYBUTYNIN CHLORIDE 5 MG TAB PO SCH ×2 (09:03→21:54)
[2022-09-26] MEDS: PANTOprazole 40 MG TAB PO SCH ×2 (09:03→21:54)
[2022-09-26] MEDS: LACTULOSE SYRUP 30 GM/45 ML UDP PO SCH ×3 (09:04→21:55)
[2022-09-26] MEDS: FLUTICASONE PROPIONATE NA SPR 16 GM BTL SCH (09:04)
[2022-09-26] MEDS: MUPIROCIN 2% OINT 22 GM TUBE TOP SCH ×2 (09:04→21:55)
[2022-09-26] MEDS: INSULIN ASPART PER UNIT SC SCH ×4 (09:12→21:55)
[2022-09-26] MEDS: LANTUS PER UNIT CHARGE SQ SCH ×2 (09:13→21:56)
[2022-09-26] MEDS: nadoloL 40 MG TAB PO SCH (09:14)
[2022-09-26] MEDS: ESCITALOPRAM OXALATE 20 MG TAB PO SCH (09:14)
[2022-09-26] MEDS: ISOSORBIDE MONO EXTENDED REL 30 MG TABCR PO SCH (09:14)
[2022-09-26] MEDS: LINACLOTIDE 145 MCG CAPSULE PO SCH (09:14)
[2022-09-26] MEDS: SPIRONOLACTONE 25 MG TAB PO SCH (09:14)
[2022-09-26] MEDS: cefTRIAXone SODIUM 2,000 MG in DEXTROSE 5% 50 ML IV SCH (10:11)
--- NOTE | 2022-09-26 10:37 | Orthopedic Progress Note ---
Date of Service September 26, 2022 Assessment & Plan (1) Infection of right great toe due to methicillin resistant Staphylococcus aureus (MRSA): Plan: Patient, seen, evaluated and treated. Resolving cellulitis. Excellent signs of healing. Thank you for allowing me to participate in the care of this Patient. (2) Diabetes: (3) Diabetic foot ulcer: (4) Gangrene of toe of right foot: Admission and Anticipated Discharge Date Admission Date: September 21, 2022 Subjective Patient is seen and examined at bedside. Patient is resting comfortably. She has no complaints. Review of Systems Review of Systems: All systems reviewed & are unremarkable except as noted in HPI & below Physical Exam Constitutional: well developed, well nourished and + morbidly obese ENMT: external ear and nose normal, oropharynx normal Respiratory: normal respiratory effort Cardiovascular: Rate/Rhythm: regular rate and regular rhythm Musculoskeletal: no cyanosis or clubbing, extremities motor strength 5/5 Skin: There are no open lesions. There are no signs of infection. Psychiatric: A+Ox3, euthymic affect Results & Data ([facility]) Vital Signs (Past 12 Hours) Vital Signs Temp Pulse Resp BP Pulse Ox O2 Del Method 09/26/22 07:43 37.0 C 70 16 102/63 96 Room Air
[2022-09-26] MEDS: ADVANCED PROBIOTIC 1250 MG CAPSULE PO SCH (12:57)
--- NOTE | 2022-09-26 18:06 | Hospitalist Progress Note ---
Date of Service September 26, 2022 Assessment & Plan (1) Infection of right great toe due to methicillin resistant Staphylococcus aureus (MRSA): Plan: Patient is 67-year-old female with PMH DM II, hypertension, hypothyroidism, asthma, restrictive lung disease, THAD on BiPAP with 2 L O2, NG cirrhosis, hepatic encephalopathy, history esophageal varices, portal hypertensive gastropathy, pancytopenia, hypothyroidism, venous insufficiency, venous stasis dermatitis, obesity, urinary incontinence, cerebral palsy, ambulatory dysfunction wheelchair dependent, history of MRSA and others listed below presented to ER with complaint of right great toe redness, edema x 1 week. Denies F/C. Seen in urgent care on 09/17/2022 for right great toe redness and swelling and was started on doxycycline and mupirocin ointment. 09/17/2022 wound culture + MRSA Diabetic right great toe infection MRSA on outpatient wound CS Likely due to dystrophic ingrowing nail plate of right hallux Failed outpatient doxycycline, mupirocin -Foot X ray:No acute fracture. No radiographic evidence for acute osteomyelitis. Exam compromised given difficulty positioning. Diffuse soft tissue swelling. -S/P Clipping of Toe Nail -Blood Cultures : Negative to date --Continue doxycycline, Rocephin Continue wound care Appreciate Podiatry Input Waiting for placement Abnormal urinalysis Urine culture : Negative Asymptomatic (2) Ambulatory dysfunction: Plan: Chronic ambulatory dysfunction. Wheelchair-bound Prior home caregiver unavailable. unable to care for patient at home H/O fibromyalgia Considering placement to [facility] H/O NG cirrhosis, hepatic encephalopathy, h/o esophageal varices, h/o portal hypertensive gastropathy On lactulose and Linzess Continue nadolol DM type II A1c 7.4 on 05/19/22 On NovoLog, Lantus, Trulicity at home Pancytopenia Chronic pancytopenia WBC: 2.8 (baseline 2.8-4), Hgb: 10.6 (baseline 10-11), PLT: 67 (baseline 60s- 70s) per outpatient chart review Monitor CBC Hypothyroidism: On levothyroxine Chronic diastolic heart failure Monitor volume status Continue home diuretics Asthma Restrictive lung disease Continue home inhalers No signs of exacerbation THAD On BiPAP at bedtime at home H/O cerebral palsy Morbid obesity BMI 53 DVT Px: SCDs Re: Thrombocytopenia, anemia Admission and Anticipated Discharge Date Admission Date: September 21, 2022 Subjective Patient is seen and examined at bedside Right toe pain resolved Had Large Loose BM today Eager to get discharged Denies any chest pain, dyspnea, dizziness, nausea, abdominal pain Review of Systems Review of Systems: All systems reviewed & are unremarkable except as noted in Subjective Physical Exam Physical Exam: Physical Exam: Vitals signs as noted above General Appearance:Morbidly Obese, no apparent distress Head: normocephalic, Atraumatic Eyes: normal inspection, EOMI Neck: supple, Trachea midline Respiratory/Chest: Normal breath sounds, CTA, No accessory muscle use Cardiovascular: S1, S2, No murmur Abdomen/GI:Soft, Non tender, Bowel sounds present Extremities/Musculoskeletal:normal inspection, B/L LE non pitting edema, wounds R Toes Neurologic/Psych:AAOX3, grossly no focal neurological deficits Skin: normal color, warm Results & Data Results & Data ([facility]) Vital Signs (Past 12 Hours) Vital Signs Temp Pulse Pulse Resp BP Pulse Ox O2 Del Method 09/26/22 08:00 Room Air 09/26/22 15:11 36.8 C 72 16 110/65 96 Room Air 09/26/22 07:43 37.0 C 70 16 102/63 96 Room Air Laboratory Results Short CBC 09/26/22 Range/Units 05:45 WBC 2.29 L (4.8-10.8) K/ul Hgb 9.3 L (12.0-16.0) g/dl Hct 28.3 L (34.1-44.9) % Plt Count 50 L (130-400) K/uL BMP 09/26/22 05:45 Sodium 139 Potassium 3.8 Chloride 110 H Carbon Dioxide 25 BUN 12 Creatinine 0.60 Glucose 158 H Calcium 8.3 L
[2022-09-26] MEDS: traZODone HCL 50 MG TAB PO SCH (21:53)
[2022-09-26] MEDS: ATORVASTATIN 40 MG TAB PO SCH (21:54)
[2022-09-27] MEDS: LEVOTHYROXINE SODIUM 150 MCG TABLET PO SCH (07:10)
[2022-09-27] MEDS: INSULIN ASPART PER UNIT SC SCH ×4 (08:45→21:11)
[2022-09-27] MEDS: LANTUS PER UNIT CHARGE SQ SCH ×2 (08:45→21:11)
[2022-09-27] MEDS: MUPIROCIN 2% OINT 22 GM TUBE TOP SCH ×2 (09:26→21:13)
[2022-09-27] MEDS: FLUTICASONE PROPIONATE NA SPR 16 GM BTL SCH (09:26)
[2022-09-27] MEDS: DOXYCYCLINE HYCLATE 100 MG CAP PO SCH ×2 (09:27→21:12)
[2022-09-27] MEDS: GABAPENTIN 300 MG CAP PO SCH ×3 (09:27→21:13)
[2022-09-27] MEDS: PANTOprazole 40 MG TAB PO SCH ×2 (09:27→21:14)
[2022-09-27] MEDS: ADVANCED PROBIOTIC 1250 MG CAPSULE PO SCH (09:27)
[2022-09-27] MEDS: OXYBUTYNIN CHLORIDE 5 MG TAB PO SCH ×2 (09:27→21:14)
[2022-09-27] MEDS: SPIRONOLACTONE 25 MG TAB PO SCH (09:27)
[2022-09-27] MEDS: LINACLOTIDE 145 MCG CAPSULE PO SCH (09:28)
[2022-09-27] MEDS: LACTULOSE SYRUP 30 GM/45 ML UDP PO SCH ×3 (09:28→21:13)
[2022-09-27] MEDS: nadoloL 40 MG TAB PO SCH (09:28)
[2022-09-27] MEDS: ISOSORBIDE MONO EXTENDED REL 30 MG TABCR PO SCH (09:28)
[2022-09-27] MEDS: ESCITALOPRAM OXALATE 20 MG TAB PO SCH (09:28)
--- NOTE | 2022-09-27 18:03 | Hospitalist Progress Note ---
Date of Service September 27, 2022 Assessment & Plan (1) Infection of right great toe due to methicillin resistant Staphylococcus aureus (MRSA): Plan: Patient is 67-year-old female with PMH DM II, hypertension, hypothyroidism, asthma, restrictive lung disease, THAD on BiPAP with 2 L O2, NG cirrhosis, hepatic encephalopathy, history esophageal varices, portal hypertensive gastropathy, pancytopenia, hypothyroidism, venous insufficiency, venous stasis dermatitis, obesity, urinary incontinence, cerebral palsy, ambulatory dysfunction wheelchair dependent, history of MRSA and others listed below presented to ER with complaint of right great toe redness, edema x 1 week. Denies F/C. Seen in urgent care on 09/17/2022 for right great toe redness and swelling and was started on doxycycline and mupirocin ointment. 09/17/2022 wound culture + MRSA Diabetic right great toe infection MRSA on outpatient wound CS Likely due to dystrophic ingrowing nail plate of right hallux Failed outpatient doxycycline, mupirocin -Foot X ray:No acute fracture. No radiographic evidence for acute osteomyelitis. Exam compromised given difficulty positioning. Diffuse soft tissue swelling. -S/P Clipping of Toe Nail -Blood Cultures : Negative to date --Continue doxycycline, Rocephin>>Doxy Continue wound care Appreciate Podiatry Input Waiting for placement We will complete antibiotic course in 2 days Abnormal urinalysis Urine culture : Negative Asymptomatic (2) Ambulatory dysfunction: Plan: Chronic ambulatory dysfunction. Wheelchair-bound Prior home caregiver unavailable. unable to care for patient at home H/O fibromyalgia Considering placement to [facility] H/O NG cirrhosis, hepatic encephalopathy, h/o esophageal varices, h/o portal hypertensive gastropathy On lactulose and Linzess Continue nadolol DM type II A1c 7.4 on 05/19/22 On NovoLog, Lantus, Trulicity at home Pancytopenia Chronic pancytopenia WBC: 2.8 (baseline 2.8-4), Hgb: 10.6 (baseline 10-11), PLT: 67 (baseline 60s- 70s) per outpatient chart review Monitor CBC Hypothyroidism: On levothyroxine Chronic diastolic heart failure Monitor volume status Continue home diuretics Asthma Restrictive lung disease Continue home inhalers No signs of exacerbation THAD On BiPAP at bedtime at home H/O cerebral palsy Morbid obesity BMI 53 DVT Px: SCDs Re: Thrombocytopenia, anemia Admission and Anticipated Discharge Date Admission Date: September 21, 2022 Subjective Patient is seen and examined at bedside No new complaints Denies any chest pain, dyspnea, dizziness, nausea, abdominal pain Waiting for placement Review of Systems Review of Systems: All systems reviewed & are unremarkable except as noted in Subjective Physical Exam Physical Exam: Physical Exam: Vitals signs as noted above General Appearance:Morbidly Obese, no apparent distress Head: normocephalic, Atraumatic Eyes: normal inspection, EOMI Neck: supple, Trachea midline Respiratory/Chest: Normal breath sounds, CTA, No accessory muscle use Cardiovascular: S1, S2, No murmur Abdomen/GI:Soft, Non tender, Bowel sounds present Extremities/Musculoskeletal:normal inspection, B/L LE non pitting edema, wounds R Toes Neurologic/Psych:AAOX3, grossly no focal neurological deficits Skin: normal color, warm Results & Data Results & Data ([facility]) Vital Signs (Past 12 Hours) Vital Signs Temp Pulse Resp BP BP Pulse Ox O2 Del Method 09/27/22 14:05 36.6 C 60 18 97/58 L 95 Room Air 09/27/22 07:12 36.8 C 58 L 18 97/63 L 95 Room Air
[2022-09-27] MEDS: ACETAMINOPHEN 325 MG TAB PO PRN (19:59)
[2022-09-27] MEDS: ATORVASTATIN 40 MG TAB PO SCH (21:12)
[2022-09-27] MEDS: traZODone HCL 50 MG TAB PO SCH (21:17)
[2022-09-28] MEDS: LEVOTHYROXINE SODIUM 150 MCG TABLET PO SCH (05:09)
[2022-09-28 07:39] LABS: Calcium 8.1 mg/dl (8.5-10.1); Potassium 3.8 mmol/L (3.5-5.1)
[2022-09-28 07:45] LABS: Creatinine Clr Calc Pharmacy 113.8 ml/min; Est GFR (African American) 110.5 ml/min; Est GFR (Non-African American) 95.4 ml/min
[2022-09-28 07:50] LABS: Hematocrit (blood only) 28.2 % (34.1-44.9); Hemoglobin 9.4 g/dl (12.0-16.0); Mean Corpuscular Hemoglobin 37.6 pg (25.0-34.0); Mean Corpuscular Hgb Conc 33.3 g/dL (32.0-36.0); Mean Corpuscular Volume 112.8 fL (80.0-100.0); Mean Platelet Volume 13.4 fL (9.4-12.3); Platelet Count 48 K/uL (130-400); RDW Coefficient of Variation 15.2 % (11.5-14.5); RDW Standard Deviation 63.5 fL (36.4-46.3); White Blood Count 1.76 K/ul (4.8-10.8)
[2022-09-28] MEDS: GABAPENTIN 300 MG CAP PO SCH ×3 (08:02→20:37)
[2022-09-28] MEDS: LINACLOTIDE 145 MCG CAPSULE PO SCH (08:03)
[2022-09-28] MEDS: ADVANCED PROBIOTIC 1250 MG CAPSULE PO SCH (08:03)
[2022-09-28] MEDS: DOXYCYCLINE HYCLATE 100 MG CAP PO SCH ×2 (08:03→20:37)
[2022-09-28] MEDS: SPIRONOLACTONE 25 MG TAB PO SCH (08:03)
[2022-09-28] MEDS: nadoloL 40 MG TAB PO SCH (08:03)
[2022-09-28] MEDS: PANTOprazole 40 MG TAB PO SCH ×2 (08:04→20:37)
[2022-09-28] MEDS: ESCITALOPRAM OXALATE 20 MG TAB PO SCH (08:04)
[2022-09-28] MEDS: MUPIROCIN 2% OINT 22 GM TUBE TOP SCH ×2 (08:04→20:37)
[2022-09-28] MEDS: LACTULOSE SYRUP 30 GM/45 ML UDP PO SCH ×3 (08:04→20:38)
[2022-09-28] MEDS: OXYBUTYNIN CHLORIDE 5 MG TAB PO SCH ×2 (08:04→20:37)
[2022-09-28] MEDS: ISOSORBIDE MONO EXTENDED REL 30 MG TABCR PO SCH (08:04)
[2022-09-28] MEDS: FLUTICASONE PROPIONATE NA SPR 16 GM BTL SCH (08:05)
[2022-09-28] MEDS: LANTUS PER UNIT CHARGE SQ SCH ×2 (08:28→20:47)
[2022-09-28] MEDS: INSULIN ASPART PER UNIT SC SCH ×4 (08:28→20:46)
--- NOTE | 2022-09-28 15:13 | Hospitalist Progress Note ---
Date of Service September 28, 2022 Assessment & Plan (1) Infection of right great toe due to methicillin resistant Staphylococcus aureus (MRSA): Plan: Patient is 67-year-old female with PMH DM II, hypertension, hypothyroidism, asthma, restrictive lung disease, THAD on BiPAP with 2 L O2, NG cirrhosis, hepatic encephalopathy, history esophageal varices, portal hypertensive gastropathy, pancytopenia, hypothyroidism, venous insufficiency, venous stasis dermatitis, obesity, urinary incontinence, cerebral palsy, ambulatory dysfunction wheelchair dependent, history of MRSA and others listed below presented to ER with complaint of right great toe redness, edema x 1 week. Denies F/C. Seen in urgent care on 09/17/2022 for right great toe redness and swelling and was started on doxycycline and mupirocin ointment. 09/17/2022 wound culture + MRSA Diabetic right great toe infection MRSA on outpatient wound CS Likely due to dystrophic ingrowing nail plate of right hallux Failed outpatient doxycycline, mupirocin -Foot X ray:No acute fracture. No radiographic evidence for acute osteomyelitis. Exam compromised given difficulty positioning. Diffuse soft tissue swelling. -S/P Clipping of Toe Nail -Blood Cultures : Negative to date --Continue doxycycline, Rocephin>>Doxy Continue wound care Appreciate Podiatry Input Will complete antibiotic course tomorrow Waiting for placement Abnormal urinalysis Urine culture : Negative Asymptomatic (2) Ambulatory dysfunction: Plan: Chronic ambulatory dysfunction. Wheelchair-bound Prior home caregiver unavailable. unable to care for patient at home H/O fibromyalgia Needs Placement H/O NG cirrhosis, hepatic encephalopathy, h/o esophageal varices, h/o portal hypertensive gastropathy On lactulose and Linzess Continue nadolol DM type II A1c 7.4 on 05/19/22 On NovoLog, Lantus, Trulicity at home Pancytopenia Chronic pancytopenia WBC: 2.8 (baseline 2.8-4), Hgb: 10.6 (baseline 10-11), PLT: 67 (baseline 60s- 70s) per outpatient chart review Monitor CBC Hypothyroidism: On levothyroxine Chronic diastolic heart failure Monitor volume status Continue home diuretics Asthma Restrictive lung disease Continue home inhalers No signs of exacerbation THAD On BiPAP at bedtime at home H/O cerebral palsy Morbid obesity BMI 53 DVT Px: SCDs Re: Thrombocytopenia, anemia Admission and Anticipated Discharge Date Admission Date: September 21, 2022 Subjective Patient is seen and examined at bedside Right total wound healing well, denies any pain Waiting for placement Denies any chest pain, dyspnea, dizziness, nausea, abdominal pain Review of Systems Review of Systems: All systems reviewed & are unremarkable except as noted in Subjective Physical Exam Physical Exam: Physical Exam: Vitals signs as noted above General Appearance:Morbidly Obese, no apparent distress Head: normocephalic, Atraumatic Eyes: normal inspection, EOMI Neck: supple, Trachea midline Respiratory/Chest: Normal breath sounds, CTA, No accessory muscle use Cardiovascular: S1, S2, No murmur Abdomen/GI:Soft, Non tender, Bowel sounds present Extremities/Musculoskeletal:normal inspection, B/L LE non pitting edema, wounds R Toes Neurologic/Psych:AAOX3, grossly no focal neurological deficits Skin: normal color, warm Results & Data Results & Data ([facility]) Vital Signs (Past 12 Hours) Vital Signs Temp Pulse Resp BP Pulse Ox O2 Del Method 09/28/22 13:23 36.8 C 60 16 110/72 95 Room Air 09/28/22 08:00 Room Air 09/28/22 07:33 36.8 C 56 L 20 110/63 96 Room Air Laboratory Results Short CBC 09/28/22 Range/Units 06:33 WBC 1.76 L (4.8-10.8) K/ul Hgb 9.4 L (12.0-16.0) g/dl Hct 28.2 L (34.1-44.9) % Plt Count 48 L (130-400) K/uL BMP 09/28/22 06:33 Sodium 142 Potassium 3.8 Chloride 108 H Carbon Dioxide 27 BUN 11 Creatinine 0.58 L Glucose 126 H Calcium 8.1 L
[2022-09-28] MEDS: ATORVASTATIN 40 MG TAB PO SCH (20:37)
[2022-09-28] MEDS: traZODone HCL 50 MG TAB PO SCH (20:37)
[2022-09-29] MEDS ORDERED: HEPARIN 100 UNIT/ML 5ML FLUSH FLUSH PRN (02:11)
[2022-09-29] MEDS: LEVOTHYROXINE SODIUM 150 MCG TABLET PO SCH (05:24)
[2022-09-29] MEDS: OXYBUTYNIN CHLORIDE 5 MG TAB PO SCH ×2 (07:35→20:59)
[2022-09-29] MEDS: GABAPENTIN 300 MG CAP PO SCH ×3 (07:35→20:59)
[2022-09-29] MEDS: LINACLOTIDE 145 MCG CAPSULE PO SCH (07:36)
[2022-09-29] MEDS: FLUTICASONE PROPIONATE NA SPR 16 GM BTL SCH (07:36)
[2022-09-29] MEDS: PANTOprazole 40 MG TAB PO SCH ×2 (07:36→20:59)
[2022-09-29] MEDS: ADVANCED PROBIOTIC 1250 MG CAPSULE PO SCH (07:36)
[2022-09-29] MEDS: SPIRONOLACTONE 25 MG TAB PO SCH (07:39)
[2022-09-29] MEDS: ISOSORBIDE MONO EXTENDED REL 30 MG TABCR PO SCH (07:39)
[2022-09-29] MEDS: MUPIROCIN 2% OINT 22 GM TUBE TOP SCH ×2 (07:40→20:59)
[2022-09-29] MEDS: nadoloL 40 MG TAB PO SCH (07:40)
[2022-09-29] MEDS: LACTULOSE SYRUP 30 GM/45 ML UDP PO SCH ×3 (07:40→20:59)
[2022-09-29] MEDS: ESCITALOPRAM OXALATE 20 MG TAB PO SCH (07:40)
[2022-09-29] MEDS: LANTUS PER UNIT CHARGE SQ SCH ×2 (08:28→20:57)
[2022-09-29] MEDS: INSULIN ASPART PER UNIT SC SCH ×4 (08:28→20:56)
--- NOTE | 2022-09-29 14:07 | Hospitalist Progress Note ---
Date of Service September 29, 2022 Assessment & Plan (1) Infection of right great toe due to methicillin resistant Staphylococcus aureus (MRSA): Plan: Patient is 67-year-old female with PMH DM II, hypertension, hypothyroidism, asthma, restrictive lung disease, THAD on BiPAP with 2 L O2, NG cirrhosis, hepatic encephalopathy, history esophageal varices, portal hypertensive gastropathy, pancytopenia, hypothyroidism, venous insufficiency, venous stasis dermatitis, obesity, urinary incontinence, cerebral palsy, ambulatory dysfunction wheelchair dependent, history of MRSA and others listed below presented to ER with complaint of right great toe redness, edema x 1 week. Denies F/C. Seen in urgent care on 09/17/2022 for right great toe redness and swelling and was started on doxycycline and mupirocin ointment. 09/17/2022 wound culture + MRSA Diabetic right great toe infection MRSA on outpatient wound CS Likely due to dystrophic ingrowing nail plate of right hallux Failed outpatient doxycycline, mupirocin Foot X ray:No acute fracture. No radiographic evidence for acute osteomyelitis. Exam compromised given difficulty positioning. Diffuse soft tissue swelling. S/P Clipping of Toe Nail Blood Cultures : Negative to date Completed antibiotic course of doxycycline today Continue wound care Appreciate Podiatry Input Waiting for placement Abnormal urinalysis Urine culture : Negative Asymptomatic Loose stool/diarrhea Multiple episodes since yesterday despite less lactulose. Soft but formed. C diff negative. Completed abx last evening. Transition to low fiber diet (2) Ambulatory dysfunction: Plan: Chronic ambulatory dysfunction. Wheelchair-bound Prior home caregiver unavailable. unable to care for patient at home H/O fibromyalgia Needs Placement H/O NG cirrhosis, hepatic encephalopathy, h/o esophageal varices, h/o portal hypertensive gastropathy On lactulose and Linzess Continue nadolol DM type II A1c 7.4 on 05/19/22 On NovoLog, Lantus, Trulicity at home Pancytopenia Chronic pancytopenia WBC: 2.8 (baseline 2.8-4), Hgb: 10.6 (baseline 10-11), PLT: 67 (baseline 60s- 70s) per outpatient chart review Monitor CBC Hypothyroidism: On levothyroxine Chronic diastolic heart failure Monitor volume status Continue home diuretics Asthma Restrictive lung disease Continue home inhalers No signs of exacerbation THAD On BiPAP at bedtime at home H/O cerebral palsy Morbid obesity BMI 53 DVT Px: SCDs Re: Thrombocytopenia, anemia A total of 35 minutes were spent with greater than 50% of that time face to face with the patient, personally reviewing all current laboratories, imaging studies, past medication reconciliation, outpatient chart review, and discussion with specialists to collaborate care for the patient with attending and utilization of translation services. Please see attending documentation for corrections and/or additions. Admission and Anticipated Discharge Date Admission Date: September 21, 2022 Supervising Physician Co-Signing Physician Notes Patient is seen and examined at bedside. States having multiple bowel movements. Eager to get discharged. No other complaints. Waiting for placement. Physical Exam: Vitals signs as noted above General Appearance:Morbidly Obese, no apparent distress Head: normocephalic, Atraumatic Eyes: normal inspection, EOMI Neck: supple, Trachea midline Respiratory/Chest: Normal breath sounds, CTA, No accessory muscle use Cardiovascular: S1, S2, No murmur Abdomen/GI:Soft, Non tender, Bowel sounds present Extremities/Musculoskeletal:normal inspection, B/L LE non pitting edema, wounds R Toes Neurologic/Psych:AAOX3, grossly no focal neurological deficits Skin: normal color, warm Diabetic right great toe infection MRSA on outpatient wound CS Likely due to dystrophic ingrowing nail plate of right hallux Failed outpatient doxycycline, mupirocin -Foot X ray:No acute fracture. No radiographic evidence for acute osteomyelitis. Exam compromised given difficulty positioning. Diffuse soft tissue swelling. -S/P Clipping of Toe Nail Blood cultures negative Completed doxycycline, Rocephin course Continue wound care Plan to discharge home once bed available at [facility] Diarrhea Secondary to antibiotics, lactulose use Can hold lactulose if patient has 3 good bowel movements or greater Stool for C. difficile negative I personally reviewed the record. Patient is interviewed and examined at bedside. Patient's care is coordinated with Franca Rivera PA-C. Please refer to the documentation above for details of patient's presentation and for discussion of other issues. Subjective Patient is seen and examined at bedside in 324. Right total wound healing well, denies any pain. Developed loose stool and have multiple episodes overnight, per patient and nursing. Denies any fever, chills, lightheadedness, CP, SOB, N/V, abdominal pain, dysuria. Mobility significantly limited 2/2 body habitus. Review of Systems Review of Systems: At least ten systems reviewed and negative except as noted in the HPI. Physical Exam Physical Exam: Gen: WD/WN, NAD, lying in bed, A&Ox3, morbidly obese HEENT: Normocephalic, atraumatic, conjunctivae moist, sclerae anicteric, mucous membranes moist Lung: Clear to Auscultation bilaterally, no wheezes/rales/rhonchi Heart: Regular rate, regular rhythm, no murmurs, rubs, or gallops Abdomen: Soft, NT, ND +BS x 4 Extremities/Musculoskeletal:normal inspection, B/L LE non pitting edema, wounds R Toes Neurologic/Psych:AAOX3, grossly no focal neurological deficits Skin: Warm, no rash Results & Data Results & Data ([facility]) Vital Signs (Past 12 Hours) Vital Signs Temp Pulse Resp BP Pulse Ox O2 Del Method 09/29/22 08:00 Room Air 09/29/22 07:45 36.7 C 60 16 131/68 96 Room Air
[2022-09-29] MEDS: traZODone HCL 50 MG TAB PO SCH (20:57)
[2022-09-29] MEDS: ATORVASTATIN 40 MG TAB PO SCH (20:59)
[2022-09-29] MEDS: traMADol HCL 50 MG TABLET PO PRN (22:48)
[2022-09-30] MEDS: LEVOTHYROXINE SODIUM 150 MCG TABLET PO SCH (05:30)
[2022-09-30] MEDS: MICONAZOLE NITRATE POWDER 43 GM EXT PRN ×2 (05:49→18:00)
[2022-09-30 06:19] LABS: Calcium 8.4 mg/dl (8.5-10.1); Potassium 3.7 mmol/L (3.5-5.1)
[2022-09-30 06:25] LABS: BUN Creatinine Ratio 18.3 (10-20); Creatinine Clr Calc Pharmacy 110.1 ml/min; Est GFR (African American) 109.3 ml/min; Est GFR (Non-African American) 94.3 ml/min
[2022-09-30 06:31] LABS: Hematocrit (blood only) 29.3 % (34.1-44.9); Hemoglobin 9.7 g/dl (12.0-16.0); Mean Corpuscular Hemoglobin 37.3 pg (25.0-34.0); Mean Corpuscular Hgb Conc 33.1 g/dL (32.0-36.0); Mean Corpuscular Volume 112.7 fL (80.0-100.0); Mean Platelet Volume 13.5 fL (9.4-12.3); Platelet Count 46 K/uL (130-400); RDW Coefficient of Variation 15.7 % (11.5-14.5); RDW Standard Deviation 65.1 fL (36.4-46.3); White Blood Count 2.11 K/ul (4.8-10.8)
[2022-09-30] MEDS: OXYBUTYNIN CHLORIDE 5 MG TAB PO SCH ×2 (08:33→21:45)
[2022-09-30] MEDS: GABAPENTIN 300 MG CAP PO SCH ×3 (08:33→21:46)
[2022-09-30] MEDS: PANTOprazole 40 MG TAB PO SCH ×2 (08:33→21:46)
[2022-09-30] MEDS: LINACLOTIDE 145 MCG CAPSULE PO SCH (08:34)
[2022-09-30] MEDS: ADVANCED PROBIOTIC 1250 MG CAPSULE PO SCH (08:34)
[2022-09-30] MEDS: INSULIN ASPART PER UNIT SC SCH ×4 (08:37→21:39)
[2022-09-30] MEDS: LACTULOSE SYRUP 30 GM/45 ML UDP PO SCH ×2 (08:41→21:46)
[2022-09-30] MEDS: LANTUS PER UNIT CHARGE SQ SCH ×2 (08:47→21:39)
[2022-09-30] MEDS: SPIRONOLACTONE 25 MG TAB PO SCH (08:49)
[2022-09-30] MEDS: ISOSORBIDE MONO EXTENDED REL 30 MG TABCR PO SCH (08:52)
[2022-09-30] MEDS: nadoloL 40 MG TAB PO SCH (08:52)
[2022-09-30] MEDS: ESCITALOPRAM OXALATE 20 MG TAB PO SCH (08:53)
[2022-09-30] MEDS: MUPIROCIN 2% OINT 22 GM TUBE TOP SCH ×2 (08:53→23:08)
[2022-09-30] MEDS: FLUTICASONE PROPIONATE NA SPR 16 GM BTL SCH (08:53)
--- NOTE | 2022-09-30 16:45 | Hospitalist Progress Note ---
Date of Service September 30, 2022 Assessment & Plan (1) Infection of right great toe due to methicillin resistant Staphylococcus aureus (MRSA): Plan: Patient is 67-year-old female with PMH DM II, hypertension, hypothyroidism, asthma, restrictive lung disease, THAD on BiPAP with 2 L O2, NG cirrhosis, hepatic encephalopathy, history esophageal varices, portal hypertensive gastropathy, pancytopenia, hypothyroidism, venous insufficiency, venous stasis dermatitis, obesity, urinary incontinence, cerebral palsy, ambulatory dysfunction wheelchair dependent, history of MRSA and others listed below presented to ER with complaint of right great toe redness, edema x 1 week. Denies F/C. Seen in urgent care on 09/17/2022 for right great toe redness and swelling and was started on doxycycline and mupirocin ointment. 09/17/2022 wound culture + MRSA Diabetic right great toe infection MRSA on outpatient wound CS Likely due to dystrophic ingrowing nail plate of right hallux Failed outpatient doxycycline, mupirocin Foot X ray:No acute fracture. No radiographic evidence for acute osteomyelitis. Exam compromised given difficulty positioning. Diffuse soft tissue swelling. S/P Clipping of Toe Nail Blood Cultures : Negative to date Completed antibiotic course of doxycycline 09/29 Continue wound care Appreciate Podiatry Input - Resolving cellulitis. Excellent signs of healing Home nursing and to help with foot care, keeping healing wound clean/dry Abnormal urinalysis Urine culture : Negative Asymptomatic Loose stool/diarrhea Multiple episodes since yesterday despite less lactulose. Soft but formed. C d iff negative. Completed abx last evening Lactulose decreased to BID - can hold evening dose if already had 3 bowel movements (2) Ambulatory dysfunction: Plan: Chronic ambulatory dysfunction. Wheelchair-bound H/O fibromyalgia No bed availability at their desired facility H/O NG cirrhosis, hepatic encephalopathy, h/o esophageal varices, h/o portal hypertensive gastropathy On lactulose and Linzess Continue nadolol DM type II A1c 7.4 on 05/19/22 On NovoLog, Lantus, Trulicity at home Pancytopenia Chronic pancytopenia WBC: 2.8 (baseline 2.8-4), Hgb: 10.6 (baseline 10-11), PLT: 67 (baseline 60s- 70s) per outpatient chart review Monitor CBC Hypothyroidism: On levothyroxine Chronic diastolic heart failure Monitor volume status Continue home diuretics Asthma Restrictive lung disease Continue home inhalers No signs of exacerbation THAD On BiPAP at bedtime at home H/O cerebral palsy Morbid obesity BMI 53 DVT Px: SCDs Re: Thrombocytopenia, anemia Bed unavailable at [facility] and patient not interested in other referrals. After extensive discussion with CM, interested in returning home with 's help. Also a [facility] at home patient. Case management attempting to get additional home nursing. Patient not interested in home PT/OT A total of 45 minutes were spent with greater than 50% of that time face to face with the patient, personally reviewing all current laboratories, imaging studies, past medication reconciliation, outpatient chart review, and discussion with specialists to collaborate care for the patient with attending and utilization of translation services. Please see attending documentation for corrections and/or additions. Admission and Anticipated Discharge Date Admission Date: September 21, 2022 Supervising Physician Co-Signing Physician Notes Patient seen and examined Completed antibiotics for toe infection CM had been working on placement. Patient is frustrated that [facility] had promised that they will take her only to be told they will not today Will follow up with CM tomorrow about dispo arrangements. If not able to send to [place], may have to discharge home with HH Remove nova Use puer wick Discussed with RN to only give lactulose if not up to 3 BM per day Other findings and plans as detailed by Franca Stone PA-c Subjective Patient is seen and examined at bedside in 324. Right total wound healing well, denies any pain. Has not had any additional episodes of loose stool this morning. Upset about remaining in hospital and difficulty transitioning to [facility]. Coordinate with case management and no bed is available. Patient wants to return home where she can be with . Case management coordinating for additional nursing care and already participates with [facility]. Denies any fever, chills, lightheadedness, CP, SOB, N/V, abdominal pain, dysuria. Mobility significantly limited 2/2 body habitus. Review of Systems Review of Systems: At least ten systems reviewed and negative except as noted in the HPI. Physical Exam Physical Exam: Gen: WD/WN, NAD, lying in bed, A&Ox3, morbidly obese HEENT: Normocephalic, atraumatic, conjunctivae moist, sclerae anicteric, mucous membranes moist Lung: Clear to Auscultation bilaterally, no wheezes/rales/rhonchi Heart: Regular rate, regular rhythm, no murmurs, rubs, or gallops Abdomen: Soft, NT, ND +BS x 4 Extremities/Musculoskeletal:normal inspection, B/L LE non pitting edema, wounds R Toes Neurologic/Psych:AAOX3, grossly no focal neurological deficits Skin: Warm, no rash Results & Data Results & Data ([facility]) Vital Signs (Past 12 Hours) Vital Signs Temp Pulse Resp BP Pulse Ox O2 Del Method 09/30/22 15:21 36.9 C 58 L 16 95/57 L 94 Room Air 09/30/22 07:43 Room Air 09/30/22 08:48 56 L 16 114/63 94 Room Air 09/30/22 07:31 36.9 C 53 L 16 93/55 L 94 Room Air Laboratory Results Short CBC 09/30/22 Range/Units 05:22 WBC 2.11 L (4.8-10.8) K/ul Hgb 9.7 L (12.0-16.0) g/dl Hct 29.3 L (34.1-44.9) % Plt Count 46 L (130-400) K/uL BMP 09/30/22 05:22 Sodium 140 Potassium 3.7 Chloride 109 H Carbon Dioxide 27 BUN 11 Creatinine 0.60 Glucose 114 H Calcium 8.4 L Diagnostic Findings Foot X-Ray 09/21/22 19:04 XR foot RT 2V CLINICAL HISTORY: infected right great toe, ?osteo. +MRSA COMPARISON: Right first toe radiographs April 06, 2020. FINDINGS: This study is compromised given difficulty positioning. No acute fracture is noted. There is no evidence for acute osteomyelitis within the right foot by radiography. Soft tissue swelling is noted. There is moderate vascular calcification. Lower leg soft tissue calcifications are chronic. Moderate midfoot degenerative changes are present. IMPRESSION: 1. No acute fracture. No radiographic evidence for acute osteomyelitis. 2. Exam compromised given difficulty positioning. 3. Diffuse soft tissue swelling. ACT 112: Negative or not required by law. Electronically signed by: Lucas Lambert M.D. 09/21/2022 7:52 PM
[2022-09-30] MEDS: traZODone HCL 50 MG TAB PO SCH (21:45)
[2022-09-30] MEDS: ATORVASTATIN 40 MG TAB PO SCH (21:45)
[2022-09-30] MEDS ORDERED: ZOLPIDEM TARTRATE 5 MG TAB PO STA (23:04)
[2022-10-01] MEDS: LEVOTHYROXINE SODIUM 150 MCG TABLET PO SCH (05:53)
[2022-10-01] MEDS: ISOSORBIDE MONO EXTENDED REL 30 MG TABCR PO SCH (08:32)
[2022-10-01] MEDS: LINACLOTIDE 145 MCG CAPSULE PO SCH (08:32)
[2022-10-01] MEDS: ESCITALOPRAM OXALATE 20 MG TAB PO SCH (08:34)
[2022-10-01] MEDS: SPIRONOLACTONE 25 MG TAB PO SCH (08:34)
[2022-10-01] MEDS: OXYBUTYNIN CHLORIDE 5 MG TAB PO SCH (08:35)
[2022-10-01] MEDS: PANTOprazole 40 MG TAB PO SCH (08:35)
[2022-10-01] MEDS: ADVANCED PROBIOTIC 1250 MG CAPSULE PO SCH (08:35)
[2022-10-01] MEDS: GABAPENTIN 300 MG CAP PO SCH ×2 (08:36→13:27)
[2022-10-01] MEDS: FLUTICASONE PROPIONATE NA SPR 16 GM BTL SCH (08:36)
[2022-10-01] MEDS: MUPIROCIN 2% OINT 22 GM TUBE TOP SCH (08:36)
[2022-10-01] MEDS: LACTULOSE SYRUP 30 GM/45 ML UDP PO SCH (08:37)
[2022-10-01] MEDS: nadoloL 40 MG TAB PO SCH (08:41)
[2022-10-01] MEDS: INSULIN ASPART PER UNIT SC SCH ×2 (09:07→13:21)
[2022-10-01] MEDS: LANTUS PER UNIT CHARGE SQ SCH (09:07)
--- NOTE | 2022-10-01 12:42 | Discharge Summary ---
Discharge Summary Date of Service October 01, 2022 Notes For Next Care Provider Continue management of chronic medical problems Continue to provide diabetes education and foot care education Medication Changes From Visit No changes Admission HPI Per Admitting Provider Patient is 67-year-old female with PMH DM II, hypertension, hypothyroidism, asthma, restrictive lung disease, THAD on BiPAP with 2 L O2, NG cirrhosis, hepatic encephalopathy, history esophageal varices, portal hypertensive gastropathy, pancytopenia, hypothyroidism, venous insufficiency, venous stasis dermatitis, obesity, urinary incontinence, cerebral palsy, ambulatory dysfunction wheelchair dependent, history of MRSA and others listed below presented to ER with complaint of right great toe redness, edema x 1 week as well as seeking placement for possible rehab. History obtained from patient and patient's . Is unsure if patient had an injury to tell however states has long toenails and suspects she hit her foot on something. has been trying to clean toe at home however patient complains of pain with palpation so limited intervention attempted. Denies any known fever, chills. Outpatient records reviewed and pt was seen in urgent care on 09/17/2022 for right great toe redness and swelling and was started on doxycycline and mupirocin ointment. 09/17/2022 wound culture obtained with results of MRSA per review. Patient and patient's unsure if any improvement over the past couple of days with antibiotic treatment. Doesn't think worsening erythema or edema. Denies noted red streaking. reports prior caregiver has been unavailable and he is struggling to take care of patient at home. He is having difficulty with transferring patient from wheelchair and has been unable to bathe patient. Denies recent falls. Denies fever/chills, diaphoresis, N/V/D/C, COLON, dizziness, syncope, neck pain, CP, SOB, increased cough, sore throat, choking, otalgia, rhinorrhea, abdominal pain, increased paresthesias, increased extremity edema, rashes, dysuria, hematuria. Admission Exam Per Admitting Provider General: no acute distress, obese, disheveled Head: normocephalic, atraumatic Eyes: conjunctiva non-injected, anicteric ENT: normal inspection external ears, nose, mucous membranes moist Neck: supple, trachea midline Lungs: clear, no respiratory distress, no wheezing/rhonchi/rales CV: RRR, + pretibial edema Abd: protuberant, normal BS, soft, non-tender Ext: no cyanosis, no calf tenderness; BLE: + Chronic skin discoloration, right foot/toes:+ Long thickened toenails throughout, right great toe lateral aspect with erythema, edema, controlled bleeding, tenderness to palpation. No red streaking noted Neuro: A&O x 3, normal affect Skin: As above in ext, otherwise warm, dry Principal Dx & Hospital Course #1 = Principal Diagnosis (1) Infection of right great toe due to methicillin resistant Staphylococcus aureus (MRSA): 67-year-old female with PMH DM II, hypertension, hypothyroidism, asthma, restrictive lung disease, THAD on BiPAP with 2 L O2, NG cirrhosis, hepatic encephalopathy, history esophageal varices, portal hypertensive gastropathy, pancytopenia, hypothyroidism, venous insufficiency, venous stasis dermatitis, obesity, urinary incontinence, cerebral palsy, ambulatory dysfunction wheelchair dependent, history of MRSA and others listed below presented to ER with complain t of right great toe redness, edema x 1 week. Denies F/C. Seen in urgent care on 09/17/2022 for right great toe redness and swelling and was started on doxycycline and mupirocin ointment. 09/17/2022 wound culture + MRSA Diabetic right great toe infection MRSA on outpatient wound culture Likely due to dystrophic ingrowing nail plate of right hallux Failed outpatient doxycycline, mupirocin Foot X ray:No acute fracture. No radiographic evidence for acute osteomyelitis. Exam compromised given difficulty positioning. Diffuse soft tissue swelling. S/P Clipping of Toe Nail Blood Cultures : Negative to date Completed antibiotic course of doxycycline on 09/29/22 Educated patient on need for proper foot care with the aid of her (2) Ambulatory dysfunction: Chronic ambulatory dysfunction. Wheelchair-bound H/O fibromyalgia Initially, patient was hoping to be discharged to [facility]. However, that did not work out. Patient now wants to go home. I called and updated him. He stated he will be able to take care of her at home until they can get home health services H/O NG cirrhosis, hepatic encephalopathy, h/o esophageal varices, h/o portal hypertensive gastropathy On lactulose and Linzess Continue nadolol Patient advised to hold further doses of lactulose once she has 3 BM in 24 hours DM type II A1c 7.4 on 9/8/22 Continue home insulin, metformin and trulicity Pancytopenia Chronic pancytopenia Hypothyroidism: On levothyroxine Chronic diastolic heart failure Continue home diuretics Asthma Restrictive lung disease Continue home inhalers THAD On BiPAP at bedtime at home H/O cerebral palsy Morbid obesity BMI 53 Discharge Exam Constitutional + well hydrated and + morbidly obese; no acute distress ENMT external ear and nose normal, oropharynx normal Respiratory normal respiratory effort, lungs clear to auscultation Cardiovascular Rate/Rhythm: regular rate and regular rhythm S1 S2 Gastrointestinal (Abdomen) normal bowel sounds, soft, nontender, no hepatosplenomegaly Neurologic PERRL, EOMI, accommodation nl, no face palsy, no dysarthria Psychiatric A+Ox3, euthymic affect Updated Medication List Medication Instructions Recorded Confirmed Type albuterol sulfate 2.5 mg/3 mL 2.5 mg inhalation DIRECTED PRN 04/30/22 09/21/22 History (0.083 %) solution for nebulization Shortness Of Breath Or Wheezing albuterol sulfate 5 mg/mL(0.5 %) 2.5 mg inhalation DIRECTED PRN 04/30/22 09/21/22 History solution for nebulization Shortness Of Breath Or Wheezing aspirin 81 mg chewable tablet 81 mg PO DAILY 04/30/22 09/21/22 History atorvastatin 80 mg tablet 80 mg PO PM 04/30/22 09/21/22 History budesonide-formoterol HFA 160 2 puff inhalation BID PRN 04/30/22 09/21/22 History mcg-4.5 mcg/actuation aerosol Shortness Of Breath Or Wheezing inhaler escitalopram oxalate 20 mg tablet 20 mg PO DAILY 04/30/22 09/21/22 History fluticasone propionate 50 2 spray intranasal DAILY 04/30/22 09/21/22 History mcg/actuation nasal spray,suspension (Flonase Allergy Relief) furosemide 20 mg tablet 20 mg PO DAILY PRN .LOWER 04/30/22 09/21/22 History EXTREMITY SWELLING gabapentin 300 mg capsule 300 mg PO BID 04/30/22 09/21/22 History gabapentin 300 mg capsule 600 mg PO QPM 04/30/22 09/21/22 History insulin aspart U-100 100 unit/mL See Rx Instructions .Route .COMPLEX 04/30/22 09/21/22 History (3 mL) subcutaneous pen (Novolog FlexPen U-100 Insulin aspart) insulin glargine 100 unit/mL (3 50 unit subcut HS 04/30/22 09/21/22 History mL) subcutaneous pen (Lantus Solostar U-100 Insulin) isosorbide mononitrate 30 mg 30 mg PO DAILY 04/30/22 09/21/22 History tablet,extended release 24 hr lidocaine-prilocaine 2.5 %-2.5 % 1 applic topical DIRECTED PRN 04/30/22 09/21/22 History topical cream MEDI-PORT nadolol 40 mg tablet 40 mg PO DAILY 04/30/22 09/21/22 History pantoprazole 20 mg tablet,delayed 40 mg PO BID 04/30/22 09/21/22 History release potassium chloride 10 mEq 10 meq PO QAM 04/30/22 09/21/22 History tablet,extended release silver sulfadiazine 1 % topical 1 applic topical DAILY apply to 04/30/22 09/21/22 History cream wound spironolactone 25 mg tablet 50 mg PO DAILY 04/30/22 09/21/22 History trazodone 50 mg tablet 50 mg PO HS 04/30/22 09/21/22 History metformin 500 mg tablet,extended 500 mg PO DAILY 06/04/22 09/21/22 History release 24 hr lactulose 20 gram/30 mL oral 30 g (45 mL) PO TID #1,200 mL 06/08/22 09/21/22 Rx solution linaclotide 145 mcg capsule 290 mcg PO DAILY #30 caps 06/08/22 09/21/22 Rx (Linzess) dulaglutide 4.5 mg/0.5 mL 4.5 mg subcut WK 09/21/22 09/21/22 History subcutaneous pen injector (Trulicity) levothyroxine 150 mcg tablet 150 mcg PO QAM 09/21/22 09/21/22 History mupirocin 2 % topical ointment 1 applic topical BID 09/21/22 09/21/22 History oxybutynin chloride 5 mg tablet 5 mg PO BID 09/21/22 09/21/22 History Hospital Stay Data Consultations 09/21/22 19:20 ED Decision to Admit Stat 09/21/22 23:14 Consult Podiatry Stat Pending Results Patient Have Any Pending Studies at Discharge: No Discharge Instructions Given to Patient (Per Discharging Provider) Mrs Bustos You came to the hospital complaining of right great toe redness and swelling. You were evaluated and managed for diabetic toe infection. You completed antibiotics and being discharged home with home health services. Please ensure daily feet exam. Ensure follow up with your Primary Doctor It was a pleasure taking care of you. Total Time Total Time Spent Total Time Spent (In Minutes): 40 Total Time Includes: Examination of the Patient, Discharge Planning, Medication Reconciliation and Other
[2022-10-01] MEDS: MICONAZOLE NITRATE POWDER 43 GM EXT PRN (12:45)
== END 2022-10-01 14:52 | disposition home health service (06) | DRG 638 ==
LOC: ED 16:29 → SUATTDRO 23:12 → 2W 09-22 → 3E 09-25 13:03

== ENCOUNTER 2022-10-19 12:44 | Observation (INO) ==
[2022-10-19] MEDS ORDERED: ALBUTEROL 0.083% NEBU SOLN 3 ML VIAL NEB STA (13:00)
[2022-10-19] MEDS ORDERED: GI COCKTAIL ED USE PO ONE (13:01)
--- NOTE | 2022-10-19 13:12 | Emergency Department Note ---
Impression & Plan Choking, Shortness of breath ED Provider Note NAME: YRLAND SHAW AGE: 67 SEX: F : 1955 ARRIVES VIA: Ambulance INFORMANT: Patient ED PROVIDER(S): Richard Marsh DO CHIEF COMPLAINT: Shortness of breath HPI: Patient is a 67-year-old female morbidly obese with a past medical history anxiety, hypoxia, cirrhosis, UTI's, NG who presents to the ER who was eating Ramen noodles and started choking. She was coughing and struggling to breathe and was turning blue and EMS pulled multiple needles out of her throat per her report. Her breathing had improved and she was transported to the ER. She denies any headache or change in vision. No chest pain but does admit to some shortness of breath. No belly pain nausea vomiting or diarrhea. No dysuria urgency or frequency. PAST MEDICAL HISTORY:See Below PAST SURGICAL HISTORY:See Below FAMILY HISTORY:See Below SOCIAL HISTORY:See Below HOME MEDICATIONS:See Below ALLERGIES:See Below VITALS:See Below PHYSICAL EXAMINATION: GENERAL: Sitting up in bed, alert, morbidly obese and disheveled with a persistent cough and mild distress EYE EXAM: normal conjunctiva. PERRL and EOM's grossly intact. OROPHARYNX:mucous membranes are moist NECK: supple, no nuchal rigidity, no adenopathy, non-tender, no stridor LUNGS: Diminished bilaterally. Normal chest wall mechanics HEART: no murmurs, S1 normal and S2 normal ABDOMEN: abdomen soft, non-tender, normo-active bowel sounds, no masses, no rebound or guarding. UPPER EXTREMITIES: upper extremities are grossly normal. LOWER EXTREMITIES: No pitting edema. NEURO EXAM: Normal sensorium, cranial nerves II-XII grossly intact, normal speech, no gross weakness of arms, no gross weakness of legs. MEDICAL DECISION MAKING: Patient is a 67-year-old female who presents to the respiratory distress secondary to choking on Ramen noodles. IV was established blood work was obtained. BMP shows slightly elevated glucose of 194. Total bili at 1.6 which is slightly up from baseline. LFTs and lipase is unremarkable. COVID was negative. External records were reviewed. Chest x-ray without any focal infiltrate. Everything started after choking on the noodles. She was given neb treatments and steroids while in the ER and her coughing has improved significantly. Pulse ox has remained slightly low at 91-90 with a mild hypotension with systolics in the upper 90s. Patient was updated in regards to these findings. She was given IV fluids. No other complaints at this time. Discussed with case or hospitalist for further evaluation and treatment. She is able to drink without difficulty. She was given a GI cocktail as well as half a glass of water and drank this without difficulty. Triage Nursing notes reviewed. Limited review of prior medical records performed Vital Signs: reviewed and remarkable for no significant abnormalities Differential diagnosis: Differential diagnoses includes but is not limited to pneumonia, bronchitis, COPD/Asthma exacerbation, pneumothorax, pulmonary embolism, congestive heart jaymie lure, acute coronary syndrome ER treatment provided: See below Diagnostics interpreted by me include EKG and cardiac monitoring as listed below: -Cardiac Monitoring: An order was placed for continuous cardiac monitoring. The monitor shows a rate of 70 with sinus rhythm. -ECG: none -Laboratory studies:Interpreted by me as stated above in MDM and shown below. Imaging studies: Xrays: As interpreted by me: Portable AP upright 1 view of the chest shows no focal infiltrate CTs show: none Consultation(s): Discussed with case to hospitalist for further evaluation treatment and observation overnight due to aspiration Procedures:none Critical Care: None Past Med/Surg History Medical History Ambulatory dysfunction Asthma DOES NOT USE INH. REPORTS USING NEB TREATMENTS BID. Bilateral lower extremity edema Cardiac murmur does not follow w/ cardio; echo 11/2017 [facility] Cerebral palsy Chronic back pain Chronic pain Dark stools Diplopia reports intermittent x 1-2 weeks. pt reports PCP aware and scheduled for brain MRI 03/11 at [facility]. 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 Major depressive disorder, recurrent, moderate Morbid obesity with BMI of 50.0-59.9, adult Obstructive sleep apnea CPAP + OXYGEN AT 2 LPM @ NIGHT On home oxygen therapy 2 LPM @ NIGHT + CPAP Osteoarthritis Pancreatic cyst Poor historian SOB (shortness of breath) on exertion Venous insufficiency Wheelchair bound Surgical History H/O wisdom tooth extraction History of Achilles tendon repair History of section History of colonoscopy History of dilatation and curettage History of esophagogastroduodenoscopy (EGD) EUS 02/22/2019 [facility] History of hip surgery History of strabismus surgery History of tooth extraction Family History Father Family history of diabetes mellitus Myocardial infarction, Onset Age: 61 Mother Myocardial infarction, Onset Age: 72 Sister Myocardial infarction Social History Smoking Status: Never smoker Second Hand Exposure: No; Hx Alcohol Use: No Hx Substance Use: No Preferred Language: Congolese Communication Ability: Effective Bi Lead Required: No Beliefs That Will Affect Care: None marital status: Current Living Situation: Family Current Living Situation Comment: Reports home health assists 5 times a week Feels Safe at Home: Yes Assistive Devices: CPAP, Hospital Bed, Mechanical Lift, Oxygen - at Night and Scooter/Electric Scooter Allergies Allergies Allergy/AdvReac Type Severity Reaction Status Date / Time adhesive tape Allergy Intermediate ITCHING Verified 10/19/22 16:42 Penicillins Allergy Intermediate Rash Verified 10/19/22 16:42 perflutren AdvReac Intermediate LOWER BACK Verified 10/19/22 16:42 PAIN Home Meds Home Medications Medication Instructions Recorded Confirmed albuterol sulfate 2.5 mg/3 mL 2.5 mg inhalation DIRECTED PRN 04/30/22 10/19/22 (0.083 %) solution for nebulization Shortness Of Breath Or Wheezing albuterol sulfate 5 mg/mL(0.5 %) 2.5 mg inhalation DIRECTED PRN 04/30/22 10/19/22 solution for nebulization Shortness Of Breath Or Wheezing aspirin 81 mg chewable tablet 81 mg PO DAILY 04/30/22 10/19/22 atorvastatin 80 mg tablet 80 mg PO PM 04/30/22 10/19/22 budesonide-formoterol HFA 160 2 puff inhalation BID PRN 04/30/22 10/19/22 mcg-4.5 mcg/actuation aerosol Shortness Of Breath Or Wheezing inhaler escitalopram oxalate 20 mg tablet 20 mg PO DAILY 04/30/22 10/19/22 fluticasone propionate 50 2 spray intranasal DAILY 04/30/22 10/19/22 mcg/actuation nasal spray,suspension (Flonase Allergy Relief) furosemide 20 mg tablet 20 mg PO DAILY PRN .LOWER 04/30/22 10/19/22 EXTREMITY SWELLING gabapentin 300 mg capsule 300 mg PO BID 04/30/22 10/19/22 gabapentin 300 mg capsule 600 mg PO QPM 04/30/22 10/19/22 insulin aspart U-100 100 unit/mL See Rx Instructions .Route .COMPLEX 04/30/22 10/19/22 (3 mL) subcutaneous pen (Novolog FlexPen U-100 Insulin aspart) insulin glargine 100 unit/mL (3 50 unit subcut HS 04/30/22 10/19/22 mL) subcutaneous pen (Lantus Solostar U-100 Insulin) isosorbide mononitrate 30 mg 30 mg PO DAILY 04/30/22 10/19/22 tablet,extended release 24 hr lidocaine-prilocaine 2.5 %-2.5 % 1 applic topical DIRECTED PRN 04/30/22 10/19/22 topical cream MEDI-PORT nadolol 40 mg tablet 40 mg PO DAILY 04/30/22 10/19/22 pantoprazole 20 mg tablet,delayed 40 mg PO BID 04/30/22 10/19/22 release potassium chloride 10 mEq 10 meq PO QAM 04/30/22 10/19/22 tablet,extended release silver sulfadiazine 1 % topical 1 applic topical DAILY apply to 04/30/22 10/19/22 cream wound spironolactone 25 mg tablet 50 mg PO DAILY 04/30/22 10/19/22 trazodone 50 mg tablet 50 mg PO HS 04/30/22 10/19/22 metformin 500 mg tablet,extended 500 mg PO DAILY 06/04/22 10/19/22 release 24 hr dulaglutide 4.5 mg/0.5 mL 4.5 mg subcut WK 09/21/22 10/19/22 subcutaneous pen injector (Trulicity) levothyroxine 150 mcg tablet 150 mcg PO QAM 09/21/22 10/19/22 mupirocin 2 % topical ointment 1 applic topical BID 09/21/22 10/19/22 oxybutynin chloride 5 mg tablet 5 mg PO BID 09/21/22 10/19/22 Previous Rx's Medication Instructions Recorded lactulose 20 gram/30 mL oral 30 g (45 mL) PO TID #1,200 mL 06/08/22 solution linaclotide 145 mcg capsule 290 mcg PO DAILY #30 caps 06/08/22 (Linzess) oxycodone 5 mg tablet 5 mg PO Q6H PRN pain #20 tabs 10/13/22 cefdinir 300 mg capsule 300 mg PO BID 10 days #20 caps 10/17/22 metronidazole 500 mg tablet 500 mg PO TID 10 days #30 tabs 10/17/22 Results & Data (ED) Vital Signs Vital Signs - 24 hr 10/19/22 13:00 10/19/22 13:00 10/19/22 13:05 Pulse Rate 88 Pulse Rate [Apical] Pulse Rate from SpO2 Sensor Pulse Rhythm Regular Pulse Strength Normal Respiratory Rate 22 Respiratory Effort / Characteristics Non-Labored Spontaneous Respiratory Pattern Regular Blood Pressure 127/70 Blood Pressure [Right Arm] Blood Pressure Mean 89 Blood Pressure Mean [Right Arm] Pulse Oximetry 94 94 94 Oxygen Delivery Method Nasal Cannula Nasal Cannula Nasal Cannula Oxygen Flow Rate 3 3 3 Sepsis Recent Fever Within 48 Hours No Sepsis New/Unexplained Change in Mental Status N/A Sepsis Action Taken by Nursing No Action Required 10/19/22 13:08 10/19/22 13:30 10/19/22 14:00 Pulse Rate 83 78 74 Pulse Rate [Apical] Pulse Rate from SpO2 Sensor 82 78 75 Pulse Rhythm Pulse Strength Respiratory Rate 15 17 13 Respiratory Effort / Characteristics Respiratory Pattern Blood Pressure Blood Pressure [Right Arm] Blood Pressure Mean Blood Pressure Mean [Right Arm] Pulse Oximetry 94 96 93 Oxygen Delivery Method Oxygen Flow Rate Sepsis Recent Fever Within 48 Hours Sepsis New/Unexplained Change in Mental Status Sepsis Action Taken by Nursing 10/19/22 15:26 10/19/22 14:08 10/19/22 14:08 Pulse Rate 72 74 Pulse Rate [Apical] Pulse Rate from SpO2 Sensor 75 Pulse Rhythm Pulse Strength Respiratory Rate 12 20 Respiratory Effort / Characteristics Respiratory Pattern Blood Pressure 93/58 L 100/54 L Blood Pressure [Right Arm] Blood Pressure Mean 69 69 Blood Pressure Mean [Right Arm] Pulse Oximetry 91 81 L Oxygen Delivery Method Room Air Oxygen Flow Rate Sepsis Recent Fever Within 48 Hours Sepsis New/Unexplained Change in Mental Status Sepsis Action Taken by Nursing 10/19/22 14:30 10/19/22 14:30 10/19/22 15:00 Pulse Rate 74 Pulse Rate [Apical] Pulse Rate from SpO2 Sensor 73 Pulse Rhythm Pulse Strength Respiratory Rate 16 Respiratory Effort / Characteristics Respiratory Pattern Blood Pressure 86/53 L 93/58 L Blood Pressure [Right Arm] Blood Pressure Mean 64 69 Blood Pressure Mean [Right Arm] Pulse Oximetry 99 Oxygen Delivery Method Oxygen Flow Rate Sepsis Recent Fever Within 48 Hours Sepsis New/Unexplained Change in Mental Status Sepsis Action Taken by Nursing 10/19/22 15:00 10/19/22 15:30 10/19/22 15:30 Pulse Rate 73 71 Pulse Rate [Apical] Pulse Rate from SpO2 Sensor 73 71 Pulse Rhythm Pulse Strength Respiratory Rate 15 10 L Respiratory Effort / Characteristics Respiratory Pattern Blood Pressure 91/56 L Blood Pressure [Right Arm] Blood Pressure Mean 67 Blood Pressure Mean [Right Arm] Pulse Oximetry 94 91 Oxygen Delivery Method Oxygen Flow Rate Sepsis Recent Fever Within 48 Hours Sepsis New/Unexplained Change in Mental Status Sepsis Action Taken by Nursing 10/19/22 15:53 10/19/22 15:53 10/19/22 16:29 Pulse Rate 70 Pulse Rate [Apical] 71 Pulse Rate from SpO2 Sensor 70 Pulse Rhythm Pulse Strength Respiratory Rate 12 18 Respiratory Effort / Characteristics Respiratory Pattern Blood Pressure 106/60 Blood Pressure [Right Arm] 99/54 L Blood Pressure Mean 75 Blood Pressure Mean [Right Arm] 69 Pulse Oximetry 91 92 Oxygen Delivery Method Room Air Oxygen Flow Rate Sepsis Recent Fever Within 48 Hours Sepsis New/Unexplained Change in Mental Status Sepsis Action Taken by Nursing Laboratory Data 10/19/22 14:30 10/19/22 14:30 Lab Results 10/19/22 10/19/22 10/19/22 Range/Units 14:30 14:30 14:30 WBC 2.07 L (4.8-10.8) K/ul RBC 2.49 L (4.20-5.40) M/uL Hgb 9.3 L (12.0-16.0) g/dl Hct 28.1 L (37.0-47.0) % MCV 112.9 H (80.0-100.0) fL MCH 37.3 H (25.0-34.0) pg MCHC 33.1 (32.0-36.0) g/dL RDW Std Deviation 68.3 H (36.4-46.3) fL RDW Coeff of Bradley 16.5 H (11.5-14.5) % Plt Count 47 L (130-400) K/uL MPV 13.4 H (9.4-12.4) fL Immature Gran % (Auto) 0.5 % Neut % (Auto) 56.9 % Lymph % (Auto) 14.0 % Dukes % (Auto) 21.3 % Eos % (Auto) 6.3 % Baso % (Auto) 1.0 % Neut # (Auto) 1.18 L (1.40-6.50) K/uL Lymph # (Auto) 0.29 L (1.2-3.4) K/uL Dukes # (Auto) 0.44 (0.11-0.59) K/uL Eos # (Auto) 0.13 (0-0.50) K/uL Baso # (Auto) 0.02 (0-0.2) K/uL Immature Gran # (Auto) 0.01 (0.01-0.20) K/uL Sodium 136 (136-145) mmol/L Potassium 4.6 (3.5-5.1) mmol/L Chloride 108 H (98-107) mmol/L Carbon Dioxide 23 (21-32) mmol/L Anion Gap 5 (3-11) BUN 21 (6-23) mg/dl Creatinine 0.92 (0.6-1.2) mg/dl Est Cr Clr Drug Dosing 75.5 ml/min Est GFR ( Amer) 74.7 ml/min Est GFR (Non-Af Amer) 64.4 ml/min BUN/Creatinine Ratio 22.8 H (10-20) Glucose 194 H (70-99(Fasting)) mg/dl Calcium 8.8 (8.5-10.1) mg/dl Total Bilirubin 1.6 H (0.2-1.0) mg/dl AST 31 (13-39) U/L ALT 21 (7-52) U/L Alkaline Phosphatase 88 (34-104) U/L Total Protein 5.9 L (6.0-8.3) gm/dl Albumin 2.9 L (3.4-5.0) gm/dl Globulin 3.0 (2.5-4.0) gm/dl Albumin/Globulin Ratio 1.0 (0.9-2) Lipase 17 (11-82) U/L SARS-CoV-2, RNA, NAAT NEGATIVE (NEGATIVE) Administered Medications Discontinued Medications Al Hydrox/Mg Hydrox/Simethicone (Gi Cocktail Ed Use) 1 dose PO ONE ONE Stop: 10/19/22 13:02 Last Admin: 10/19/22 13:30 Dose: 1 dose Documented By: STEVE Albuterol (Albuterol 0.083% Nebu Soln 3 Ml Vial) 5 mg NEB NOW STA; Protocol Stop: 10/19/22 13:01 Last Admin: 10/19/22 13:34 Dose: 5 mg Documented By: TSEVE Sodium Chloride (Nss 1000ml) 500 mls @ 999 mls/hr IV .Q31M ONE Stop: 10/19/22 16:10 Last Admin: 10/19/22 15:58 Dose: 999 mls/hr Documented By: AM Methylprednisolone (Methylprednisolone 40 Mg/Ml Vial) 40 mg IV NOW STA Stop: 10/19/22 13:02 Last Admin: 10/19/22 13:36 Dose: 40 mg Documented By: STEVE Imaging Data Radiologist's Impression: Chest X-Ray 10/19/22 12:59 SINGLE VIEW CHEST CLINICAL HISTORY: Cough FINDINGS: An AP, portable, semierect chest radiograph is compared to study dated 10/13/2022 and correlated with chest CT dated 10/16/2022. The examination is degraded by portable technique and patient rotation. A right internal jugular central venous infusion port is unchanged in position. The heart is enlarged. The pulmonary vasculature is noncongested. Chronic interstitial thickening is similar to previous. Atelectasis is seen at the lung bases. The lungs and pleural spaces are otherwise clear. No pneumothorax is seen. The skeletal structures are osteopenic. The bony thorax is grossly intact. IMPRESSION: Cardiomegaly with no acute cardiopulmonary abnormality identified. ACT 112: Negative or not required by law. Electronically signed by: Selvin Barroso M.D. 10/19/2022 1:25 PM Discharge Plan Visit Data Chief Complaint: Choking Stated Complaint: CHOKING, COUGHING, POSSIBLE FOOD BOLUS ED Provider: Richard Marsh Discharge Problem: Choking, Shortness of breath Forms Stand Alone Forms: My [facility] Prescriptions Prescriptions: No Action oxybutynin chloride 5 mg tablet 5 mg PO BID levothyroxine 150 mcg tablet 150 mcg PO QAM Trulicity 4.5 mg/0.5 mL pen injector 4.5 mg SUBCUT WK Rx Instructions: TAKE THIS MED EVERY MONDAY. mupirocin 2 % ointment 1 applic TOPICAL BID oxycodone 5 mg tablet 5 mg PO Q6H PRN (Reason: pain) Qty: 20 0RF silver sulfadiazine 1 % Cream 1 applic TOPICAL DAILY atorvastatin 80 mg tablet 80 mg PO PM albuterol sulfate 2.5 mg /3 mL (0.083 %) Solution For Nebulization 2.5 mg INHALATION DIRECTED PRN (Reason: Shortness Of Breath Or Wheezing) isosorbide mononitrate 30 mg tablet extended release 24 hr 30 mg PO DAILY potassium chloride 10 mEq tablet extended release 10 meq PO QAM Rx Instructions: TAKE WITH FOOD spironolactone 25 mg tablet 50 mg PO DAILY pantoprazole 20 mg tablet,delayed release (DR/EC) 40 mg PO BID Rx Instructions: TAKE TWO TABLETS TWICE DAILY gabapentin 300 mg capsule 600 mg PO QPM Rx Instructions: TAKE TWO CAPSULES IN THE EVENING. gabapentin 300 mg capsule 300 mg PO BID MDD 6 CAP Rx Instructions: Take 1 tab in am & mid day. May take extra dose in AM & MID DAY PRN. Total of 6 a day max. aspirin 81 mg tablet,chewable 81 mg PO DAILY furosemide 20 mg tablet 20 mg PO DAILY PRN (Reason: .LOWER EXTREMITY SWELLING) albuterol sulfate 5 mg/mL Solution For Nebulization 2.5 mg INHALATION DIRECTED PRN (Reason: Shortness Of Breath Or Wheezing) insulin aspart U-100 [Novolog FlexPen U-100 Insulin] 100 unit/mL (3 mL) insulin pen See Rx Instructions .ROUTE .COMPLEX Rx Instructions: 35 UNITS @ BREAKFAST, 39 UNITS @ BEFORE LUNCH, 45 UNITS BEFORE SUPPER insulin glargine [Lantus Solostar U-100 Insulin] 100 unit/mL (3 mL) insulin pen 50 unit SUBCUT HS trazodone 50 mg tablet 50 mg PO HS lidocaine-prilocaine 2.5-2.5 % Cream 1 applic topical DIRECTED PRN (Reason: MEDI-PORT) Rx Instructions: APPLY WHEN ACCESSING PORT; APPLY TO SKIN OVER MEDIPORT AND COVER OND HOUR PRIOR TO ACCESSING. nadolol 40 mg tablet 40 mg PO DAILY fluticasone propionate [Flonase Allergy Relief] 50 mcg/actuation [place],Suspension 2 spray INTRANASAL DAILY Rx Instructions: administer into each nostril escitalopram oxalate 20 mg tablet 20 mg PO DAILY budesonide-formoterol 160-4.5 mcg/actuation Hfa Aerosol Inhaler 2 puff INHALATION BID PRN (Reason: Shortness Of Breath Or Wheezing) metformin 500 mg tablet extended release 24 hr 500 mg PO DAILY Rx Instructions: TAKE WITH A MEAL lactulose 20 gram/30 mL Solution 30 g PO TID Qty: 1200 0RF Linzess 145 mcg Capsule 290 mcg PO DAILY Qty: 30 0RF cefdinir 300 mg capsule 300 mg PO BID 10 Days Qty: 20 0RF Rx Instructions: ORDERED 10/17/22, NOT ON EXT MED HX, UNSURE IF PT TAKING. metronidazole 500 mg tablet 500 mg PO TID 10 Days Qty: 30 0RF Rx Instructions: ORDERED 10/17/22, NOT ON EXT MED HX, UNSURE IF STARTED THIS MED. Referrals Referrals: Vanita Dunn MD [Primary Care Provider] -
--- NOTE | 2022-10-19 13:26 | XRay Report ---
SINGLE VIEW CHEST CLINICAL HISTORY: Cough FINDINGS: An AP, portable, semierect chest radiograph is compared to study dated 10/13/2022 and correla tucker with chest CT dated 10/16/2022. The examination is degraded by portable technique and patient rotat ion. A right internal jugular central venous infusion port is unchanged in position. The heart is enl arged. The pulmonary vasculature is noncongested. Chronic interstitial thickening is similar to previ ous. Atelectasis is seen at the lung bases. The lungs and pleural spaces are otherwise clear. No pneu mothorax is seen. The skeletal structures are osteopenic. The bony thorax is grossly intact. IMPRESSION: Cardiomegaly with no acute cardiopulmonary abnormality identified. ACT 112: Negative or not required by law. Electronically signed by: Selvin Barroso M.D. 10/19/2022 1:25 PM
[2022-10-19] MEDS ORDERED: SODIUM CHLORIDE 0.9% 1000ML 500 ML IV ONE (15:40)
[2022-10-19 16:10] LABS: Albumin Level 2.9 gm/dl (3.4-5.0); BUN Creatinine Ratio 22.8 (10-20); Bilirubin,Total 1.6 mg/dl (0.2-1.0); Calcium 8.8 mg/dl (8.5-10.1); Creatinine Clr Calc Pharmacy 75.5 ml/min; Est GFR (African American) 74.7 ml/min; Est GFR (Non-African American) 64.4 ml/min; Potassium 4.6 mmol/L (3.5-5.1); Total Protein 5.9 gm/dl (6.0-8.3)
[2022-10-19 16:40] LABS: Basophils # (auto) 0.02 K/uL (0-0.2); Eosinophils # (auto) 0.13 K/uL (0-0.50); Eosinophils % (auto) 6.3 %; Hematocrit (blood only) 28.1 % (37.0-47.0); Hemoglobin 9.3 g/dl (12.0-16.0); Immature Granulocytes # (auto) 0.01 K/uL (0.01-0.20); Immature Granulocytes % (auto) 0.5 %; Lymphocytes # (auto) 0.29 K/uL (1.2-3.4); Mean Corpuscular Hemoglobin 37.3 pg (25.0-34.0); Mean Corpuscular Hgb Conc 33.1 g/dL (32.0-36.0); Mean Corpuscular Volume 112.9 fL (80.0-100.0); Mean Platelet Volume 13.4 fL (9.4-12.4); Monocytes # (auto) 0.44 K/uL (0.11-0.59); Monocytes % (auto) 21.3 %; Neutrophils # (auto) 1.18 K/uL (1.40-6.50); Neutrophils % (auto) 56.9 %; Platelet Count 47 K/uL (130-400); RDW Coefficient of Variation 16.5 % (11.5-14.5); RDW Standard Deviation 68.3 fL (36.4-46.3); Red Blood Count 2.49 M/uL (4.20-5.40); White Blood Count 2.07 K/ul (4.8-10.8)
--- NOTE | 2022-10-19 17:23 | History & Physical Report ---
Date of Service October 19, 2022 Assessment & Plan (1) Choking: Plan: One episode of choking today. EMS pulled Latonya carrasco from her throat after the home health nurses could not clear her airway. She is oxygenating well at this time, but this episode was very concerning to patient and family, so we are admitting to observe her overnight. She has multiple comorbidities including cerebral palsy and cirrhosis and she has been bedbound for years, using a candace lift to transfer. (2) Cough: Plan: Reports an ongoing cough for the past week that is nonproductive. Multple chest images this week, negative for pneumonia. COVID negative. She is not ill- appearing. Reports she is kept up all night by coughing. Will support with Tbaitha AYALA to see if this will help. (3) Colitis: Plan: Recently evaluated in the ER on 10/13 and was diagnosed with a possible colitis. Patient reports chronic abdominal pain, but this history is not clear. She has no guarding on abdominal exam and no fevers. There is no sepsis present. Cont with the antibiotic course of cefdinir and flagyl that was previously prescribed and then resent on 10/17. (4) Chronic back pain: Plan: chronic, no changes from her baseline. Cont home gabapentin and oxycodone PRN (5) Major depressive disorder, recurrent, moderate: Plan: chronic, stable. Cont lexapro per home regimen. (6) Hypothyroidism: Plan: chronic, stable. Cont synthroid per home regimen. (7) DM type 2 (diabetes mellitus, type 2): Plan: chronic, stable. Repeat A1C pending. Requires insulin. Cont basal bolus insulin while admitted with carb coverage and correction factor. (8) Obstructive sleep apnea: Plan: CPAP qHS (9) History of migraine: Plan: Patient reports headaches more frequent in the past week. Possibly related to her excessive coughing. Cont to monitor with cough suppressant therapy. (10) Pancytopenia: Plan: She has a history of anemia at this current level of 9.3/28 earlier this month. Recent checks have shown her H/H to be higher in the last week including 12/36.5 on 10/16. There is no overt bleeding present. Cont to monitor with repeat CBC in am. Chronically low platelet count is at baseline. (11) Cerebral palsy: (12) Obesity, morbid (more than 100 lbs over ideal weight or BMI > 40): Plan: SCDs-chemoprophy contraindicated in setting of thrombocytopenia Full Code Dispo to home in am after observation from her choking spell today. [facility] History of Present Illness Chief Complaint: choking episode Primary Care Provider: Vanita Dunn MD 67 yo F with multiple medical problems presents after a choking episode at home today. She reports a cough worse in the last week. Tolerating PO fine. Doesn't normally choke on food. Takes lactulose and has frequent liquid bowels. Denies fevers or chills. Reports taking OTC cough medication. Reports coughing all night long. Patient is not concerned about confusion but her asks about her ammonia level, stating that she has been confused. ROS also reveals headaches, frontal. They are lasting half the day to all day long. She has a history of headaches. Denies caffeine use on a regular basis. reports that she is forgetful. She is currently oriented and gives a clear history. She is bedbound and uses a candace lift to transfer. h/o cerebral palsy and is morbidly obese. Over the past week she has presented to the ER twice. The first was related to chest pain and abdominal imaging reported possible ascending colon wall thickening. She was started on cefdinir and flagyl and sent home. She then returned two days later reporting cough and SOB. She admitted to not taking the antibiotics and these were re-prescribed. Allergies Allergy/AdvReac Type Severity Reaction Status Date / Time adhesive tape Allergy Intermediate ITCHING Verified 10/19/22 16:42 Penicillins Allergy Intermediate Rash Verified 10/19/22 16:42 perflutren AdvReac Intermediate LOWER BACK Verified 10/19/22 16:42 PAIN Home Medications Medication Instructions Recorded Confirmed Type albuterol sulfate 2.5 mg/3 mL 2.5 mg inhalation DIRECTED PRN 04/30/22 10/19/22 History (0.083 %) solution for nebulization Shortness Of Breath Or Wheezing albuterol sulfate 5 mg/mL(0.5 %) 2.5 mg inhalation DIRECTED PRN 04/30/22 10/19/22 History solution for nebulization Shortness Of Breath Or Wheezing aspirin 81 mg chewable tablet 81 mg PO DAILY 04/30/22 10/19/22 History atorvastatin 80 mg tablet 80 mg PO PM 04/30/22 10/19/22 History budesonide-formoterol HFA 160 2 puff inhalation BID PRN 04/30/22 10/19/22 History mcg-4.5 mcg/actuation aerosol Shortness Of Breath Or Wheezing inhaler escitalopram oxalate 20 mg tablet 20 mg PO DAILY 04/30/22 10/19/22 History fluticasone propionate 50 2 spray intranasal DAILY 04/30/22 10/19/22 History mcg/actuation nasal spray,suspension (Flonase Allergy Relief) furosemide 20 mg tablet 20 mg PO DAILY PRN .LOWER 04/30/22 10/19/22 History EXTREMITY SWELLING gabapentin 300 mg capsule 300 mg PO BID 04/30/22 10/19/22 History gabapentin 300 mg capsule 600 mg PO QPM 04/30/22 10/19/22 History insulin aspart U-100 100 unit/mL See Rx Instructions .Route .COMPLEX 04/30/22 10/19/22 History (3 mL) subcutaneous pen (Novolog FlexPen U-100 Insulin aspart) insulin glargine 100 unit/mL (3 50 unit subcut HS 04/30/22 10/19/22 History mL) subcutaneous pen (Lantus Solostar U-100 Insulin) isosorbide mononitrate 30 mg 30 mg PO DAILY 04/30/22 10/19/22 History tablet,extended release 24 hr lidocaine-prilocaine 2.5 %-2.5 % 1 applic topical DIRECTED PRN 04/30/22 10/19/22 History topical cream MEDI-PORT nadolol 40 mg tablet 40 mg PO DAILY 04/30/22 10/19/22 History pantoprazole 20 mg tablet,delayed 40 mg PO BID 04/30/22 10/19/22 History release potassium chloride 10 mEq 10 meq PO QAM 04/30/22 10/19/22 History tablet,extended release silver sulfadiazine 1 % topical 1 applic topical DAILY apply to 04/30/22 10/19/22 History cream wound spironolactone 25 mg tablet 50 mg PO DAILY 04/30/22 10/19/22 History trazodone 50 mg tablet 50 mg PO HS 04/30/22 10/19/22 History metformin 500 mg tablet,extended 500 mg PO DAILY 06/04/22 10/19/22 History release 24 hr lactulose 20 gram/30 mL oral 30 g (45 mL) PO TID #1,200 mL 06/08/22 10/19/22 Rx solution linaclotide 145 mcg capsule 290 mcg PO DAILY #30 caps 06/08/22 10/19/22 Rx (Linzess) dulaglutide 4.5 mg/0.5 mL 4.5 mg subcut WK 09/21/22 10/19/22 History subcutaneous pen injector (Trulicity) levothyroxine 150 mcg tablet 150 mcg PO QAM 09/21/22 10/19/22 History mupirocin 2 % topical ointment 1 applic topical BID 09/21/22 10/19/22 History oxybutynin chloride 5 mg tablet 5 mg PO BID 09/21/22 10/19/22 History oxycodone 5 mg tablet 5 mg PO Q6H PRN pain #20 tabs 10/13/22 10/19/22 Rx cefdinir 300 mg capsule 300 mg PO BID 10 days #20 caps 10/17/22 10/19/22 Rx metronidazole 500 mg tablet 500 mg PO TID 10 days #30 tabs 10/17/22 10/19/22 Rx Past Med/Surg History Medical History Ambulatory dysfunction Asthma DOES NOT USE INH. REPORTS USING NEB TREATMENTS BID. Bilateral lower extremity edema Cardiac murmur does not follow w/ cardio; echo 11/2017 [place] Cerebral palsy Chronic back pain Chronic pain Dark stools Diplopia reports intermittent x 1-2 weeks. pt reports PCP aware and scheduled for brain MRI 03/11 at [facility]. 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 Major depressive disorder, recurrent, moderate Morbid obesity with BMI of 50.0-59.9, adult Obstructive sleep apnea CPAP + OXYGEN AT 2 LPM @ NIGHT On home oxygen therapy 2 LPM @ NIGHT + CPAP Osteoarthritis Pancreatic cyst Poor historian SOB (shortness of breath) on exertion Venous insufficiency Wheelchair bound Surgical History H/O wisdom tooth extraction History of Achilles tendon repair History of section History of colonoscopy History of dilatation and curettage History of esophagogastroduodenoscopy (EGD) EUS 02/22/2019 [facility] History of hip surgery History of strabismus surgery History of tooth extraction Family History Father Family history of diabetes mellitus Myocardial infarction, Onset Age: 61 Mother Myocardial infarction, Onset Age: 72 Sister Myocardial infarction Social History Smoking Status: Never smoker Second Hand Exposure: No; Hx Alcohol Use: No Hx Substance Use: No Preferred Language: German Communication Ability: Effective Examination Supervisor Required: No Beliefs That Will Affect Care: None marital status: Current Living Situation: Family Current Living Situation Comment: Reports home health assists 5 times a week Feels Safe at Home: Yes Assistive Devices: CPAP, Hospital Bed, Mechanical Lift, Oxygen - at Night and Scooter/Electric Scooter Review of Systems Review of Systems: All systems were reviewed and negative except as indicated on HPI above. Physical Exam Physical Exam: CONSTITUTIONAL: morbid obesity, vitals as above, chronically ill-appearing, NAD EYES: pupils are round and equal bilaterally, appears to have an element of proptosis to eyes, normal conjunctivae, no scleral icterus ENT: external ear and nose normal, oropharynx clear, +coughing during exam-nonp roductive. NECK: trachea midline RESPIRATORY: clear to auscultation bilaterally, no crackles, rales or wheezes, normal respiratory effort CARDIOVASCULAR: regular rate and rhythm, 3/6 JOSE throughout precordium, no peripheral edema CHEST: inspection of chest was normal GASTROINTESTINAL: soft, nontender, ND, protuberant, no guarding MUSCULOSKELETAL: strength 5/5 throughout, head is normocephalic and atraumatic SKIN: warm and dry NEUROLOGIC: CN 2-12 grossly intact, no sensory deficit, normal cognition, normal speech, no tremor PSYCHIATRIC: alert cooperative and oriented to person, place and time. Euthymic mood, makes good eye contact, language grossly intact, recent and remote memory grossly intact. Results & Data Results & Data ([facility]) Vital Signs (Past 12 Hours) Vital Signs Pulse Pulse Resp BP BP Pulse Ox O2 Del Method 10/19/22 16:29 71 18 99/54 L 92 Room Air 10/19/22 15:53 106/60 10/19/22 15:53 70 12 91 10/19/22 15:30 71 10 L 91 10/19/22 15:30 91/56 L 10/19/22 15:00 73 15 94 10/19/22 15:00 93/58 L 10/19/22 14:30 74 16 99 10/19/22 14:30 86/53 L 10/19/22 14:08 74 20 81 L 10/19/22 14:08 100/54 L 10/19/22 15:26 72 12 93/58 L 91 Room Air 10/19/22 14:00 74 13 93 10/19/22 13:30 78 17 96 10/19/22 13:08 83 15 94 10/19/22 13:05 94 Nasal Cannula 10/19/22 13:00 94 Nasal Cannula 10/19/22 13:00 88 22 127/70 94 Nasal Cannula O2 Flow Rate 10/19/22 16:29 10/19/22 15:53 10/19/22 15:53 10/19/22 15:30 10/19/22 15:30 10/19/22 15:00 10/19/22 15:00 10/19/22 14:30 10/19/22 14:30 10/19/22 14:08 10/19/22 14:08 10/19/22 15:26 10/19/22 14:00 10/19/22 13:30 10/19/22 13:08 10/19/22 13:05 3 10/19/22 13:00 3 10/19/22 13:00 3 Laboratory Results Short CBC 10/19/22 Range/Units 14:30 WBC 2.07 L (4.8-10.8) K/ul Hgb 9.3 L (12.0-16.0) g/dl Hct 28.1 L (37.0-47.0) % Plt Count 47 L (130-400) K/uL BMP 10/19/22 14:30 Sodium 136 Potassium 4.6 Chloride 108 H Carbon Dioxide 23 BUN 21 Creatinine 0.92 Glucose 194 H Calcium 8.8 Liver Function 10/19/22 Range/Units 14:30 Total Bilirubin 1.6 H (0.2-1.0) mg/dl AST 31 (13-39) U/L ALT 21 (7-52) U/L Alkaline Phosphatase 88 (34-104) U/L Albumin 2.9 L (3.4-5.0) gm/dl Diagnostic Findings Chest X-Ray 10/19/22 12:59 SINGLE VIEW CHEST CLINICAL HISTORY: Cough FINDINGS: An AP, portable, semierect chest radiograph is compared to study dated 10/13/2022 and correlated with chest CT dated 10/16/2022. The examination is degraded by portable technique and patient rotation. A right internal jugular central venous infusion port is unchanged in position. The heart is enlarged. The pulmonary vasculature is noncongested. Chronic interstitial thickening is similar to previous. Atelectasis is seen at the lung bases. The lungs and pleural spaces are otherwise clear. No pneumothorax is seen. The skeletal structures are osteopenic. The bony thorax is grossly intact. IMPRESSION: Cardiomegaly with no acute cardiopulmonary abnormality identified. ACT 112: Negative or not required by law. Electronically signed by: Selvin Barroso M.D. 10/19/2022 1:25 PM (1) Cerebral palsy Cerebral palsy type: unspecified type Qualified Code(s): G80.9 - Cerebral palsy, unspecified (2) Hypothyroidism Hypothyroidism type: unspecified Qualified Code(s): E03.9 - Hypothyroidism, unspecified (3) DM type 2 (diabetes mellitus, type 2) Diabetes mellitus complication status: with other specified complication Diabetes mellitus correction insulin use: unspecified correction insulin use status Qualified Code(s): E11.69 - Type 2 diabetes mellitus with other specified complication
[2022-10-19 18:01] LABS: Troponin I High Sensitivity 13.8 pg/ml (0-14)
[2022-10-19] MEDS ORDERED: guaiFENesin/CODEINE 100MG/10MG 5ML UDC PO STA (18:43)
[2022-10-19] MEDS ORDERED: GABAPENTIN 300 MG CAP PO SCH (23:48)
[2022-10-19] MEDS ORDERED: FUROSEMIDE 20 MG TAB PO PRN (23:48)
[2022-10-19] MEDS ORDERED: CARBOHYDRATES FOR HYPOGLYCEMIA PO PRN (23:48)
[2022-10-19] MEDS ORDERED: ACETAMINOPHEN 500 MG TAB PO PRN (23:48)
[2022-10-19] MEDS ORDERED: oxyCODONE HCL IR 5 MG TAB (IMMEDIATE RELEASE) PO PRN (23:48)
[2022-10-19] MEDS ORDERED: GLUCOSE 40% GEL 15 GM TUBE PO PRN (23:48)
[2022-10-19] MEDS ORDERED: ALBUTEROL 0.083% NEBU SOLN 3 ML VIAL INH PRN (23:48)
[2022-10-19] MEDS ORDERED: ATORVASTATIN 40 MG TAB PO SCH (23:48)
[2022-10-19] MEDS ORDERED: NON-FORMULARY MEDICATION (Albuterol Sulfate 5 mg/mL Solution For Nebulization) INH PRN (23:48)
[2022-10-19] MEDS ORDERED: GLUCOSE 10 TAB/TUBE PO PRN (23:48)
[2022-10-19] MEDS ORDERED: DEXTROSE 50% 50 ML SYRINGE IV PRN (23:48)
[2022-10-19] MEDS ORDERED: GLUCAGON FOR INJ 1 MG VIAL SQ PRN (23:48)
[2022-10-20] MEDS ORDERED: FLUTICASONE/VILANTEROL 100/25MCG 14 PUFFS/INHALER INH PRN (00:37)
[2022-10-20] MEDS: INSULIN ASPART PER UNIT SC SCH ×3 (02:06→12:58)
[2022-10-20] MEDS: LANTUS PER UNIT CHARGE SQ SCH ×2 (02:07→09:48)
[2022-10-20] MEDS: CEFDINIR 300 MG CAP PO SCH ×2 (02:10→09:40)
[2022-10-20] MEDS: metroNIDAZOLE 500 MG TAB PO SCH ×3 (02:10→13:04)
[2022-10-20] MEDS: OXYBUTYNIN CHLORIDE 5 MG TAB PO SCH ×2 (02:10→09:41)
[2022-10-20] MEDS: PANTOprazole 40 MG TAB PO SCH ×2 (02:11→09:41)
[2022-10-20] MEDS ORDERED: LEVOTHYROXINE SODIUM 150 MCG TABLET PO SCH (06:30)
[2022-10-20 07:05] LABS: INR 1.4 (0.9-1.1); Prothrombin Time 14.6 Seconds (9.0-12.0)
[2022-10-20 07:55] LABS: Albumin Globulin Ratio 0.8 (0.9-2); Albumin Level 2.7 gm/dl (3.4-5.0); BUN Creatinine Ratio 29.9 (10-20); Bilirubin,Total 1.6 mg/dl (0.2-1.0); Calcium 8.5 mg/dl (8.5-10.1); Creatinine Clr Calc Pharmacy 79.3 ml/min; Est GFR (African American) 92.6 ml/min; Est GFR (Non-African American) 79.9 ml/min; Globulin 3.2 gm/dl (2.5-4.0); Magnesium 1.9 mg/dl (1.7-2.4); Phosphorus 2.7 mg/dl (2.5-4.9); Potassium 4.6 mmol/L (3.5-5.1); Total Protein 5.9 gm/dl (6.0-8.3)
[2022-10-20 08:40] LABS: Estimated Average Glucose 140 mg/dl; Hemoglobin A1C 6.5 % (4.5-5.6)
[2022-10-20] MEDS ORDERED: FLUTICASONE PROPIONATE NA SPR 16 GM BTL NAE SCH (09:00)
[2022-10-20] MEDS ORDERED: LACTULOSE SYRUP 20 GM/30 ML UDC PO SCH (09:00)
[2022-10-20] MEDS ORDERED: ISOSORBIDE MONO EXTENDED REL 30 MG TABCR PO SCH (09:00)
[2022-10-20] MEDS ORDERED: nadoloL 40 MG TAB PO SCH (09:00)
[2022-10-20] MEDS ORDERED: POTASSIUM CHLORIDE 10 MEQ TABCR PO SCH (09:00)
[2022-10-20] MEDS ORDERED: ASPIRIN 81 MG ECTAB PO SCH (09:00)
[2022-10-20] MEDS ORDERED: SPIRONOLACTONE 25 MG TAB PO SCH (09:00)
[2022-10-20] MEDS ORDERED: ESCITALOPRAM OXALATE 20 MG TAB PO SCH (09:00)
[2022-10-20] MEDS ORDERED: LINACLOTIDE 145 MCG CAPSULE PO SCH (09:00)
[2022-10-20] MEDS: GABAPENTIN 300 MG CAP PO SCH ×2 (09:40→13:04)
[2022-10-20] MEDS: LACTULOSE SYRUP 30 GM/45 ML UDP PO SCH ×2 (09:41→13:04)
--- NOTE | 2022-10-20 09:51 | Hospitalist Progress Note ---
Date of Service October 20, 2022 Assessment & Plan (1) Choking: Plan: per Dr. Michelle's notes with addendum: One episode of choking today. EMS pulled Latonya carrasco from her throat after the home health nurses could not clear her airway. She is oxygenating well at t his time, but this episode was very concerning to patient and family, so we are admitting to observe her overnight. She has multiple comorbidities including cerebral palsy and cirrhosis and she has been bedbound for years, using a candace lift to transfer. 10/20 doing fine overall no symptoms awaiting speech therapy recommendations anticipate d/c this afternoon (2) Cough: Plan: Reports an ongoing cough for the past week that is nonproductive. Multiple chest images this week, negative for pneumonia. COVID negative. She is not ill-appearing. Reports she is kept up all night by coughing. Will support with Tabitha AC to see if this will help. 10/17 reports cough is chronic- years non productive CXR: no infiltrates outpatient follow up (3) Colitis: Plan: Recently evaluated in the ER on 10/13 and was diagnosed with a possible colitis. Patient reports chronic abdominal pain, but this history is not clear. She has no guarding on abdominal exam and no fevers. There is no sepsis present. Cont with the antibiotic course of cefdinir and flagyl that was previously prescribed and then resent on 10/17. 10/20 no diarrhea complete course of previously prescribed Cefdinir and Flagyl (4) Chronic back pain: Plan: chronic, no changes from her baseline. Cont home gabapentin and oxycodone PRN 10/20 denies back pain today (5) Major depressive disorder, recurrent, moderate: Plan: chronic, stable. Cont lexapro per home regimen. (6) Hypothyroidism: Plan: chronic, stable. Cont synthroid per home regimen. (7) DM type 2 (diabetes mellitus, type 2): Plan: chronic, stable. Repeat A1C 6.5. Requires insulin. Cont basal bolus insulin while admitted with carb coverage and correction factor. (8) Obstructive sleep apnea: Plan: CPAP qHS (9) History of migraine: Plan: Patient reports headaches more frequent in the past week. Possibly related to her excessive coughing. Cont to monitor with cough suppressant therapy. 10/20 no headache (10) Pancytopenia: Plan: She has a history of anemia at this current level of 9.3/28 earlier this month. Recent checks have shown her H/H to be higher in the last week including 12/36.5 on 10/16. There is no overt bleeding present. Cont to monitor with repeat CBC in am. Chronically low platelet count is at baseline. 10/20 CBC pending repeat CBC on ff up with PCP (11) Cerebral palsy: (12) Obesity, morbid (more than 100 lbs over ideal weight or BMI > 40): Plan: SCDs-chemoprophy contraindicated in setting of thrombocytopenia Full Code Disposition anticipate d/c this afternoon after speech eval Admission and Anticipated Discharge Date Admission Date: October 19, 2022 Subjective ff up for choking episode, etc seen resting in bed, comfortable awake, alert, not in distress states she feels fine overall no sore throat, dyspnea, chest pain no other symptoms states she is ready for discharge today Review of Systems Review of Systems: all noted and negative except for above Physical Exam Physical Exam: General- oriented x 3, not in distress, speaks in sentences with no effort or accessory muscle use Eyes- anicteric Neck- no JVD Lungs- clear breath sounds bilaterally, no rales/wheezes Heart- normal rate, regular rhythm; no murmurs Abdomen- normal bowel sounds, nondistended, soft, nontender Extremities- no pretibial edema, no calf tenderness Neuro- alert, oriented x 3; no gross focal neurologic deficits Skin- warm & dry Results & Data Results & Data ([facility]) Vital Signs (Past 12 Hours) Vital Signs Temp Pulse Pulse Resp BP Pulse Ox O2 Del Method 10/20/22 08:10 63 10/20/22 06:43 36.3 C L 67 20 123/68 93 Room Air 10/20/22 02:45 36.7 C 62 20 110/63 95 BiPAP 10/19/22 23:48 CPAP 10/20/22 01:23 61 18 97 10/19/22 23:48 36.7 C 63 12 116/63 94 Room Air O2 Flow Rate 10/20/22 08:10 10/20/22 06:43 10/20/22 02:45 10/19/22 23:48 10/20/22 01:23 2 10/19/22 23:48 all noted and reviewed including below (1) Hypothyroidism Hypothyroidism type: unspecified Qualified Code(s): E03.9 - Hypothyroidism, unspecified (2) DM type 2 (diabetes mellitus, type 2) Diabetes mellitus complication status: with other specified complication Diabetes mellitus terminal supervisor insulin use: unspecified terminal supervisor insulin use status Qualified Code(s): E11.69 - Type 2 diabetes mellitus with other specified complication (3) Cerebral palsy Cerebral palsy type: unspecified type Qualified Code(s): G80.9 - Cerebral palsy, unspecified
--- NOTE | 2022-10-20 12:15 | Discharge Summary ---
Discharge Summary Date of Service October 20, 2022 Notes For Next Care Provider Medication Changes From Visit none Admission HPI Per Admitting Provider 67 yo F with multiple medical problems presents after a choking episode at home today. She reports a cough worse in the last week. Tolerating PO fine. Doesn't normally choke on food. Takes lactulose and has frequent liquid bowels. Denies fevers or chills. Reports taking OTC cough medication. Reports coughing all night long. Patient is not concerned about confusion but her asks about her ammonia level, stating that she has been confused. ROS also reveals headaches, frontal. They are lasting half the day to all day long. She has a history of headaches. Denies caffeine use on a regular basis. reports that she is forgetful. She is currently oriented and gives a clear history. She is bedbound and uses a candace lift to transfer. h/o cerebral palsy and is morbidly obese. Over the past week she has presented to the ER twice. The first was related to chest pain and abdominal imaging reported possible ascending colon wall thickening. She was started on cefdinir and flagyl and sent home. She then returned two days later reporting cough and SOB. She admitted to not taking the antibiotics and these were re-prescribed. Admission Exam Per Admitting Provider CONSTITUTIONAL: morbid obesity, vitals as above, chronically ill-appearing, NAD EYES: pupils are round and equal bilaterally, appears to have an element of proptosis to eyes, normal conjunctivae, no scleral icterus ENT: external ear and nose normal, oropharynx clear, +coughing during exam- nonproductive. NECK: trachea midline RESPIRATORY: clear to auscultation bilaterally, no crackles, rales or wheezes, normal respiratory effort CARDIOVASCULAR: regular rate and rhythm, 3/6 JOSE throughout precordium, no peripheral edema CHEST: inspection of chest was normal GASTROINTESTINAL: soft, nontender, ND, protuberant, no guarding MUSCULOSKELETAL: strength 5/5 throughout, head is normocephalic and atraumatic SKIN: warm and dry NEUROLOGIC: CN 2-12 grossly intact, no sensory deficit, normal cognition, normal speech, no tremor PSYCHIATRIC: alert cooperative and oriented to person, place and time. Euthymic mood, makes good eye contact, language grossly intact, recent and remote memory grossly intact. Principal Dx & Hospital Course #1 = Principal Diagnosis (1) Choking: (1) Choking: Plan: per Dr. Michelle's notes with addendum: One episode of choking today. EMS pulled Latonya carrasco from her throat after the home health nurses could not clear her airway. She is oxygenating well at this time, but this episode was very concerning to patient and family, so we are admitting to observe her overnight. She has multiple comorbidities including cerebral palsy and cirrhosis and she has been bedbound for years, using a candace lift to transfer. 10/20 doing fine overall no symptoms awaiting speech therapy recommendations anticipate d/c this afternoon (2) Cough: Plan: Reports an ongoing cough for the past week that is nonproductive. Multiple chest images this week, negative for pneumonia. COVID negative. She is not ill-appearing. Reports she is kept up all night by coughing. Will support with Tabitha AYALA to see if this will help. 10/17 reports cough is chronic- years non productive CXR: no infiltrates outpatient follow up (3) Colitis: Plan: Recently evaluated in the ER on 10/13 and was diagnosed with a possible colitis. Patient reports chronic abdominal pain, but this history is not clear. She has no guarding on abdominal exam and no fevers. There is no sepsis present. Cont with the antibiotic course of cefdinir and flagyl that was previously prescribed and then resent on 10/17. 10/20 no diarrhea complete course of previously prescribed Cefdinir and Flagyl (4) Chronic back pain: Plan: chronic, no changes from her baseline. Cont home gabapentin and oxycodone PRN 10/20 denies back pain today (5) Major depressive disorder, recurrent, moderate: Plan: chronic, stable. Cont lexapro per home regimen. (6) Hypothyroidism: Plan: chronic, stable. Cont synthroid per home regimen. (7) DM type 2 (diabetes mellitus, type 2): Plan: chronic, stable. Repeat A1C 6.5. Requires insulin. Cont basal bolus insulin while admitted with carb coverage and correction factor. (8) Obstructive sleep apnea: Plan: CPAP qHS (9) History of migraine: Plan: Patient reports headaches more frequent in the past week. Possibly related to her excessive coughing. Cont to monitor with cough suppressant therapy. 10/20 no headache (10) Pancytopenia: Plan: She has a history of anemia at this current level of 9.3/28 earlier this month. Recent checks have shown her H/H to be higher in the last week including 12/36.5 on 10/16. There is no overt bleeding present. Cont to monitor with repeat CBC in am. Chronically low platelet count is at baseline. 10/20 CBC pending repeat CBC on ff up with PCP (11) Cerebral palsy: (12) Obesity, morbid (more than 100 lbs over ideal weight or BMI > 40): Plan: SCDs-chemoprophy contraindicated in setting of thrombocytopenia Full Code Disposition anticipate d/c this afternoon after speech eval Discharge Exam General- oriented x 3, not in distress, speaks in sentences with no effort or accessory muscle use Eyes- anicteric Neck- no JVD Lungs- clear breath sounds bilaterally, no rales/wheezes Heart- normal rate, regular rhythm; no murmurs Abdomen- normal bowel sounds, nondistended, soft, nontender Extremities- no pretibial edema, no calf tenderness Neuro- alert, oriented x 3; no gross focal neurologic deficits Skin- warm & dry Updated Medication List Medication Instructions Recorded Confirmed Type albuterol sulfate 2.5 mg/3 mL 2.5 mg inhalation DIRECTED PRN 04/30/22 10/19/22 History (0.083 %) solution for nebulization Shortness Of Breath Or Wheezing albuterol sulfate 5 mg/mL(0.5 %) 2.5 mg inhalation DIRECTED PRN 04/30/22 10/19/22 History solution for nebulization Shortness Of Breath Or Wheezing aspirin 81 mg chewable tablet 81 mg PO DAILY 04/30/22 10/19/22 History atorvastatin 80 mg tablet 80 mg PO PM 04/30/22 10/19/22 History budesonide-formoterol HFA 160 2 puff inhalation BID PRN 04/30/22 10/19/22 History mcg-4.5 mcg/actuation aerosol Shortness Of Breath Or Wheezing inhaler escitalopram oxalate 20 mg tablet 20 mg PO DAILY 04/30/22 10/19/22 History fluticasone propionate 50 2 spray intranasal DAILY 04/30/22 10/19/22 History mcg/actuation nasal spray,suspension (Flonase Allergy Relief) furosemide 20 mg tablet 20 mg PO DAILY PRN .LOWER 04/30/22 10/19/22 History EXTREMITY SWELLING gabapentin 300 mg capsule 300 mg PO BID 04/30/22 10/19/22 History gabapentin 300 mg capsule 600 mg PO QPM 04/30/22 10/19/22 History insulin aspart U-100 100 unit/mL See Rx Instructions .Route .COMPLEX 04/30/22 10/19/22 History (3 mL) subcutaneous pen (Novolog FlexPen U-100 Insulin aspart) insulin glargine 100 unit/mL (3 50 unit subcut HS 04/30/22 10/19/22 History mL) subcutaneous pen (Lantus Solostar U-100 Insulin) isosorbide mononitrate 30 mg 30 mg PO DAILY 04/30/22 10/19/22 History tablet,extended release 24 hr lidocaine-prilocaine 2.5 %-2.5 % 1 applic topical DIRECTED PRN 04/30/22 10/19/22 History topical cream MEDI-PORT nadolol 40 mg tablet 40 mg PO DAILY 04/30/22 10/19/22 History pantoprazole 20 mg tablet,delayed 40 mg PO BID 04/30/22 10/19/22 History release potassium chloride 10 mEq 10 meq PO QAM 04/30/22 10/19/22 History tablet,extended release silver sulfadiazine 1 % topical 1 applic topical DAILY apply to 04/30/22 10/19/22 History cream wound spironolactone 25 mg tablet 50 mg PO DAILY 04/30/22 10/19/22 History trazodone 50 mg tablet 50 mg PO HS 04/30/22 10/19/22 History metformin 500 mg tablet,extended 500 mg PO DAILY 06/04/22 10/19/22 History release 24 hr lactulose 20 gram/30 mL oral 30 g (45 mL) PO TID #1,200 mL 06/08/22 10/19/22 Rx solution linaclotide 145 mcg capsule 290 mcg PO DAILY #30 caps 06/08/22 10/19/22 Rx (Linzess) dulaglutide 4.5 mg/0.5 mL 4.5 mg subcut WK 09/21/22 10/19/22 History subcutaneous pen injector (Trulicity) levothyroxine 150 mcg tablet 150 mcg PO QAM 09/21/22 10/19/22 History mupirocin 2 % topical ointment 1 applic topical BID 09/21/22 10/19/22 History oxybutynin chloride 5 mg tablet 5 mg PO BID 09/21/22 10/19/22 History oxycodone 5 mg tablet 5 mg PO Q6H PRN pain #20 tabs 10/13/22 10/19/22 Rx cefdinir 300 mg capsule 300 mg PO BID 10 days #20 caps 10/17/22 10/19/22 Rx metronidazole 500 mg tablet 500 mg PO TID 10 days #30 tabs 10/17/22 10/19/22 Rx Hospital Stay Data Consultations 10/19/22 16:51 ED Decision to Admit Stat Pending Results Patient Have Any Pending Studies at Discharge: Yes Discharge Instructions Given to Patient (Per Discharging Provider) PLEASE RESUME YOUR USUAL MEDICATION REGIMEN. ALWAYS HAVE MINCED AND MOIST DIET. PLEASE FOLLOW SPEECH THERAPY RECOMMENDATIONS TO PREVENT EPISODES OF CHOKING OR ASPIRATION. PLEASE CALL YOUR PRIMARY CARE PHYSICIAN OR RETURN TO THE ER IF WITH WORSENING OF SYMPTOMS, INCLUDING WORSENING COUGH, SHORTNESS OF BREATH, FEVER/CHILLS, ETC. FOLLOW UP WITH PRIMARY CARE PHYSICIAN OUTLINED ABOVE. Total Time Total Time Spent Total Time Spent (In Minutes): >30 minutes
[2022-10-20 12:24] LABS: Hematocrit (blood only) 26.2 % (37.0-47.0); Hemoglobin 8.7 g/dl (12.0-16.0); Mean Corpuscular Hemoglobin 37.3 pg (25.0-34.0); Mean Corpuscular Hgb Conc 33.2 g/dL (32.0-36.0); Mean Corpuscular Volume 112.4 fL (80.0-100.0); RDW Standard Deviation 66.2 fL (36.4-46.3); Red Blood Count 2.33 M/uL (4.20-5.40); White Blood Count 1.38 K/ul (4.8-10.8)
[2022-10-20 12:42] LABS: Basophils # (auto) 0.01 K/uL (0-0.2); Basophils % (auto) 0.7 %; Echinocytes 1+; Immature Granulocytes # (auto) 0.01 K/uL (0.01-0.20); Immature Granulocytes % (auto) 0.7 %; Lymphocytes # (auto) 0.23 K/uL (1.2-3.4); Lymphocytes % (auto) 16.7 %; Mean Platelet Volume 14.2 fL (9.4-12.4); Monocytes # (auto) 0.15 K/uL (0.11-0.59); Monocytes % (auto) 10.9 %; Neutrophils # (auto) 0.98 K/uL (1.40-6.50); Platelet Count 45 K/uL (130-400); Tear Drop Cells 1+
== END 2022-10-20 15:00 | disposition home or self-care (01) ==
LOC: 2N 12:44 → ED 12:44 → SUATTDRO 18:43 → 2N 23:39

== ENCOUNTER 2022-10-28 14:02 | Inpatient (IN) ==
--- NOTE | 2022-10-28 14:19 | Emergency Department Note ---
Impression & Plan SOB (shortness of breath), Nausea, Generalized weakness, Urinary tract infection ED Provider Note INFORMANT: Patient and ED PROVIDER(S): Chema Acosta MD CHIEF COMPLAINT: Shortness of breath and weakness PLAN: Disposition: Admitted Condition: Good Outpatient prescription management: none Referral: None MEDICAL DECISION MAKING: Patient presented because of the complaints noted below. She had a work-up initiated. Her history is complicated by her CP, diabetes, multiple UTIs, and morbid obesity. She had pancytopenia noted on her CBC. Chemistry panel was un remarkable. Troponin was negative as well as her LFTs. Urinalysis was concerning for infection. Prior cultures were reviewed and the patient has had numerous different types of infections but most recently a Klebsiella sensitive to cephalosporins and MRSA. Patient was given a dose of IV Rocephin and oral Bactrim. Patient and her do not feel that she is well enough to go home given her chronic disabling conditions. Discussed with marketing segment manager. Consulted with Dr. Guardado of the [facility]. Patient was evaluated in the ER and admitted for further management. After review of the information above and other included data, I feel the patient requires further management in the hospital. Triage Nursing notes reviewed and agree them. Vital Signs: reviewed and remarkable for no significant abnormalities Prior /Outside records reviewed: none Differential diagnosis: Infection, dehydration, metabolic abnormality, hypo/hyperglycemia, electrolyte disturbance, anemia, hypoxia, cardiac sources, intracerebral event, toxicologic, neurologic, as well as other pathologies. Diagnostics, as interpreted by me: ECG: Twelve-lead ECG reveals sinus rhythm with first-degree block and low voltage QRS at [address] elevation or depression. Cardiac Monitoring: Cardiac monitoring ordered by me: The patient was placed on continuous cardiac monitoring and observed. It revealed a normal sinus rhythm at 67 beats per minute without ectopy or evidence of dysrhythmia. Medical decision rules: none Imaging studies: Chest x-ray. Findings: A chest x-ray was performed and revealed no pneumothorax, effusion, infiltrate, pulmonary edema, free air under the diaphragm, or wide mediastinum. Impression: No acute disease. HPI: The patient is a 67year old female who presents to the Emergency Room with complaints of illness. This started today and is described as not feeling well nausea, shortness of breath. The patient also notes the following associated symptoms, upset stomach. Patient was recently admitted to the hospital after a choking episode. She was also being treated for colitis. She is unsure if she finished her antibiotics. EMS was summoned. Oral Zofran the patient has relieving factors. Current pain is rated as 0/10. Patient has chronic lower extremity edema. Pt denies LOC, headache, fevers, chills, diaphoresis, visual changes, neck pain, chest pain, vomiting, abdominal pain, back pain, melena, hematochezia, urinary symptoms, numbness, weakness, lymphadenopathy, rash, or other complaints. PAST MEDICAL HISTORY: See Below, colitis, COPD, COVID-19, UTI, diabetes PAST SURGICAL HISTORY:, SOCIAL HISTORY: See Below, HOME MEDICATIONS: See Below ALLERGIES: See Below VITALS: See Below PHYSICAL EXAMINATION: GENERAL: Awake, tired-appearing, in no distress HENT: Normocephalic, atraumatic. Oropharynx unremarkable. EYES: Normal conjunctiva. Sclera non-icteric. NECK: Inspection normal. Non-tender. Supple. No nuchal rigidity. FROM. No masses. RESPIRATORY: Clear to auscultation. No wheezes. No rales. Normal respiratory effort. CARDIAC: Normal rate. Normal rhythm. No murmurs. No rubs. Extremities warm and well perfused. Pulses equal. No JVD. GI: Soft, non-distended. Dexcom noted in the anterior abdominal wall. No tenderness to palpation. No rebound or guarding. No masses. RECTAL: Deferred. MUSCULOSKELETAL: Atraumatic. Chest examination reveals Mediport in the right upper chest. The back is symmetrical on inspection without obvious abnormality. There is no CVA tenderness to palpation. No joint edema. LOWER EXTREMITIES: Calves are equal size bilaterally and non-tender. 3+ edema. Chronic for discoloration. NEURO: Normal sensorium. No sensory or motor deficits noted. SKIN: No rash or jaundice noted. Past Med/Surg History Medical History Ambulatory dysfunction Asthma DOES NOT USE INH. REPORTS USING NEB TREATMENTS BID. Bilateral lower extremity edema Cardiac murmur does not follow w/ cardio; echo 11/2017 OR Cerebral palsy Chronic back pain Chronic pain Dark stools Diplopia reports intermittent x 1-2 weeks. pt reports PCP aware and scheduled for brain MRI 03/11 at OR. 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 Major depressive disorder, recurrent, moderate Morbid obesity with BMI of 50.0-59.9, adult Obstructive sleep apnea CPAP + OXYGEN AT 2 LPM @ NIGHT On home oxygen therapy 2 LPM @ NIGHT + CPAP Osteoarthritis Pancreatic cyst Poor historian SOB (shortness of breath) on exertion Venous insufficiency Wheelchair bound Surgical History H/O wisdom tooth extraction History of Achilles tendon repair History of section History of colonoscopy History of dilatation and curettage History of esophagogastroduodenoscopy (EGD) EUS 02/22/2019 [facility] History of hip surgery History of strabismus surgery History of tooth extraction Family History Father Family history of diabetes mellitus Myocardial infarction, Onset Age: 61 Mother Myocardial infarction, Onset Age: 72 Sister Myocardial infarction Social History Smoking Status: Never smoker Second Hand Exposure: No; Hx Alcohol Use: Yes Alcohol type: hard liquor Hx Substance Use: No Preferred Language: Latvian Communication Ability: Effective Command And Control Officer Required: No Beliefs That Will Affect Care: None marital status: Current Living Situation: Spouse Current Living Situation Comment: Reports home health assists 5 times a week Feels Safe at Home: Yes Assistive Devices: Hospital Bed, Lift Chair, Mechanical Lift, Walker and Wheelchair Allergies Allergies Allergy/AdvReac Type Severity Reaction Status Date / Time adhesive tape Allergy Intermediate ITCHING Verified 10/19/22 16:42 Penicillins Allergy Intermediate Rash Verified 10/19/22 16:42 perflutren AdvReac Intermediate LOWER BACK Verified 10/19/22 16:42 PAIN Home Meds Home Medications Medication Instructions Recorded Confirmed albuterol sulfate 2.5 mg/3 mL 2.5 mg inhalation DIRECTED PRN 04/30/22 10/19/22 (0.083 %) solution for nebulization Shortness Of Breath Or Wheezing albuterol sulfate 5 mg/mL(0.5 %) 2.5 mg inhalation DIRECTED PRN 04/30/22 10/19/22 solution for nebulization Shortness Of Breath Or Wheezing aspirin 81 mg chewable tablet 81 mg PO DAILY 04/30/22 10/19/22 atorvastatin 80 mg tablet 80 mg PO PM 04/30/22 10/19/22 budesonide-formoterol HFA 160 2 puff inhalation BID PRN 04/30/22 10/19/22 mcg-4.5 mcg/actuation aerosol Shortness Of Breath Or Wheezing inhaler escitalopram oxalate 20 mg tablet 20 mg PO DAILY 04/30/22 10/19/22 fluticasone propionate 50 2 spray intranasal DAILY 04/30/22 10/19/22 mcg/actuation nasal spray,suspension (Flonase Allergy Relief) furosemide 20 mg tablet 20 mg PO DAILY PRN .LOWER 04/30/22 10/19/22 EXTREMITY SWELLING gabapentin 300 mg capsule 300 mg PO BID 04/30/22 10/19/22 gabapentin 300 mg capsule 600 mg PO QPM 04/30/22 10/19/22 insulin aspart U-100 100 unit/mL See Rx Instructions .Route .COMPLEX 04/30/22 10/19/22 (3 mL) subcutaneous pen (Novolog FlexPen U-100 Insulin aspart) insulin glargine 100 unit/mL (3 50 unit subcut HS 04/30/22 10/19/22 mL) subcutaneous pen (Lantus Solostar U-100 Insulin) isosorbide mononitrate 30 mg 30 mg PO DAILY 04/30/22 10/19/22 tablet,extended release 24 hr lidocaine-prilocaine 2.5 %-2.5 % 1 applic topical DIRECTED PRN 04/30/22 10/19/22 topical cream MEDI-PORT nadolol 40 mg tablet 40 mg PO DAILY 04/30/22 10/19/22 pantoprazole 20 mg tablet,delayed 40 mg PO BID 04/30/22 10/19/22 release potassium chloride 10 mEq 10 meq PO QAM 04/30/22 10/19/22 tablet,extended release silver sulfadiazine 1 % topical 1 applic topical DAILY apply to 04/30/22 10/19/22 cream wound spironolactone 25 mg tablet 50 mg PO DAILY 04/30/22 10/19/22 trazodone 50 mg tablet 50 mg PO HS 04/30/22 10/19/22 metformin 500 mg tablet,extended 500 mg PO DAILY 06/04/22 10/19/22 release 24 hr dulaglutide 4.5 mg/0.5 mL 4.5 mg subcut WK 09/21/22 10/19/22 subcutaneous pen injector (Trulicity) levothyroxine 150 mcg tablet 150 mcg PO QAM 09/21/22 10/19/22 mupirocin 2 % topical ointment 1 applic topical BID 09/21/22 10/19/22 oxybutynin chloride 5 mg tablet 5 mg PO BID 09/21/22 10/19/22 Previous Rx's Medication Instructions Recorded lactulose 20 gram/30 mL oral 30 g (45 mL) PO TID #1,200 mL 06/08/22 solution linaclotide 145 mcg capsule 290 mcg PO DAILY #30 caps 06/08/22 (Linzess) oxycodone 5 mg tablet 5 mg PO Q6H PRN pain #20 tabs 10/13/22 Results & Data (ED) Vital Signs Vital Signs - 24 hr 10/28/22 14:16 10/28/22 14:16 10/28/22 14:14 Temperature 36.8 C Temperature Source Oral Pulse Rate 67 70 67 Pulse Rate from SpO2 Sensor 67 Pulse Rhythm Regular Pulse Strength Normal Respiratory Rate 18 16 Respiratory Effort / Characteristics Non-Labored Spontaneous Respiratory Depth Normal Respiratory Pattern Regular Blood Pressure 111/84 Blood Pressure Mean 93 Blood Pressure Position Lying Pulse Oximetry 95 95 Oxygen Delivery Method Room Air Oxygen Flow Rate Sepsis Recent Fever Within 48 Hours No Sepsis New/Unexplained Change in Mental Status N/A Sepsis Action Taken by Nursing No Action Required 10/28/22 14:30 10/28/22 15:00 10/28/22 15:00 Temperature Temperature Source Pulse Rate 70 65 Pulse Rate from SpO2 Sensor 69 66 Pulse Rhythm Pulse Strength Respiratory Rate 17 14 Respiratory Effort / Characteristics Respiratory Depth Respiratory Pattern Blood Pressure 119/69 Blood Pressure Mean 85 Blood Pressure Position Pulse Oximetry 94 93 Oxygen Delivery Method Oxygen Flow Rate Sepsis Recent Fever Within 48 Hours Sepsis New/Unexplained Change in Mental Status Sepsis Action Taken by Nursing 10/28/22 15:30 10/28/22 15:30 10/28/22 16:00 Temperature Temperature Source Pulse Rate 68 Pulse Rate from SpO2 Sensor 68 Pulse Rhythm Pulse Strength Respiratory Rate 13 Respiratory Effort / Characteristics Respiratory Depth Respiratory Pattern Blood Pressure 118/65 112/89 Blood Pressure Mean 82 96 Blood Pressure Position Pulse Oximetry 93 Oxygen Delivery Method Oxygen Flow Rate Sepsis Recent Fever Within 48 Hours Sepsis New/Unexplained Change in Mental Status Sepsis Action Taken by Nursing 10/28/22 16:00 10/28/22 16:30 10/28/22 16:30 Temperature Temperature Source Pulse Rate 64 61 Pulse Rate from SpO2 Sensor 64 62 Pulse Rhythm Pulse Strength Respiratory Rate 15 14 Respiratory Effort / Characteristics Respiratory Depth Respiratory Pattern Blood Pressure 114/74 Blood Pressure Mean 87 Blood Pressure Position Pulse Oximetry 94 94 Oxygen Delivery Method Oxygen Flow Rate Sepsis Recent Fever Within 48 Hours Sepsis New/Unexplained Change in Mental Status Sepsis Action Taken by Nursing 10/28/22 17:00 10/28/22 17:00 10/28/22 17:30 Temperature Temperature Source Pulse Rate 61 Pulse Rate from SpO2 Sensor 61 Pulse Rhythm Pulse Strength Respiratory Rate 15 Respiratory Effort / Characteristics Respiratory Depth Respiratory Pattern Blood Pressure 124/67 113/68 Blood Pressure Mean 86 83 Blood Pressure Position Pulse Oximetry 98 Oxygen Delivery Method Oxygen Flow Rate Sepsis Recent Fever Within 48 Hours Sepsis New/Unexplained Change in Mental Status Sepsis Action Taken by Nursing 10/28/22 17:30 10/28/22 18:01 10/28/22 18:00 Temperature Temperature Source Pulse Rate 61 62 Pulse Rate from SpO2 Sensor 61 Pulse Rhythm Pulse Strength Respiratory Rate 13 Respiratory Effort / Characteristics Respiratory Depth Respiratory Pattern Blood Pressure 129/70 Blood Pressure Mean 89 Blood Pressure Position Pulse Oximetry 97 Oxygen Delivery Method Nasal Cannula Oxygen Flow Rate 2 Sepsis Recent Fever Within 48 Hours Sepsis New/Unexplained Change in Mental Status Sepsis Action Taken by Nursing 10/28/22 18:00 10/28/22 18:30 10/28/22 18:30 Temperature Temperature Source Pulse Rate 64 61 Pulse Rate from SpO2 Sensor 62 61 Pulse Rhythm Pulse Strength Respiratory Rate 13 15 Respiratory Effort / Characteristics Respiratory Depth Respiratory Pattern Blood Pressure 125/87 Blood Pressure Mean 99 Blood Pressure Position Pulse Oximetry 99 97 Oxygen Delivery Method Oxygen Flow Rate Sepsis Recent Fever Within 48 Hours Sepsis New/Unexplained Change in Mental Status Sepsis Action Taken by Nursing 10/28/22 19:00 10/28/22 19:30 10/28/22 20:00 Temperature Temperature Source Pulse Rate 63 64 61 Pulse Rate from SpO2 Sensor 63 65 61 Pulse Rhythm Pulse Strength Respiratory Rate 17 15 22 Respiratory Effort / Characteristics Respiratory Depth Respiratory Pattern Blood Pressure 128/68 127/77 123/68 Blood Pressure Mean 88 93 86 Blood Pressure Position Pulse Oximetry 98 94 98 Oxygen Delivery Method Oxygen Flow Rate Sepsis Recent Fever Within 48 Hours Sepsis New/Unexplained Change in Mental Status Sepsis Action Taken by Nursing 10/28/22 20:30 10/28/22 21:00 10/28/22 21:30 Temperature Temperature Source Pulse Rate 64 61 64 Pulse Rate from SpO2 Sensor 65 61 64 Pulse Rhythm Pulse Strength Respiratory Rate 11 L 11 L 13 Respiratory Effort / Characteristics Respiratory Depth Respiratory Pattern Blood Pressure 127/62 120/73 129/73 Blood Pressure Mean 83 88 91 Blood Pressure Position Pulse Oximetry 96 96 95 Oxygen Delivery Method Oxygen Flow Rate 0 0 Sepsis Recent Fever Within 48 Hours Sepsis New/Unexplained Change in Mental Status Sepsis Action Taken by Nursing 10/28/22 22:00 Temperature Temperature Source Pulse Rate 67 Pulse Rate from SpO2 Sensor 68 Pulse Rhythm Pulse Strength Respiratory Rate 15 Respiratory Effort / Characteristics Respiratory Depth Respiratory Pattern Blood Pressure 116/71 Blood Pressure Mean 86 Blood Pressure Position Pulse Oximetry 93 Oxygen Delivery Method Oxygen Flow Rate Sepsis Recent Fever Within 48 Hours Sepsis New/Unexplained Change in Mental Status Sepsis Action Taken by Nursing Laboratory Data 10/28/22 15:13 10/28/22 15:13 Lab Results 10/28/22 10/28/22 10/28/22 Range/Units 15:13 15:13 15:13 WBC 4.18 L (4.8-10.8) K/ul RBC 2.58 L (4.20-5.40) M/uL Hgb 9.6 L (12.0-16.0) g/dl Hct 29.3 L (37.0-47.0) % MCV 113.6 H (80.0-100.0) fL MCH 37.2 H (25.0-34.0) pg MCHC 32.8 (32.0-36.0) g/dL RDW Std Deviation 71.7 H (36.4-46.3) fL RDW Coeff of [place] 17.3 H (11.5-14.5) % Plt Count 76 L (130-400) K/uL MPV 12.9 H (9.4-12.4) fL Immature Gran % (Auto) 0.5 % Neut % (Auto) 67.5 % Lymph % (Auto) 18.4 % [place] % (Auto) 8.4 % Eos % (Auto) 4.5 % Baso % (Auto) 0.7 % Neut # (Auto) 2.82 (1.40-6.50) K/uL Lymph # (Auto) 0.77 L (1.2-3.4) K/uL [place] # (Auto) 0.35 (0.11-0.59) K/uL Eos # (Auto) 0.19 (0-0.50) K/uL Baso # (Auto) 0.03 (0-0.2) K/uL Immature Gran # (Auto) 0.02 (0.01-0.20) K/uL Platelet Estimate Decreased L (Normal) Polychromasia 1+ Macrocytosis Present Tear Drop Cells 2+ Ovalocytes 1+ Sodium 139 (136-145) mmol/L Potassium 4.3 (3.5-5.1) mmol/L Chloride 110 H (98-107) mmol/L Carbon Dioxide 29 (21-32) mmol/L Anion Gap 0 L (3-11) BUN 13 (6-23) mg/dl Creatinine 0.53 L (0.6-1.2) mg/dl Est Cr Clr Drug Dosing 132.3 ml/min Est GFR ( Amer) 113.9 ml/min Est GFR (Non-Af Amer) 98.2 ml/min BUN/Creatinine Ratio 24.5 H (10-20) Glucose 158 H (70-99(Fasting)) mg/dl Calcium 8.5 (8.5-10.1) mg/dl Magnesium 1.7 (1.7-2.4) mg/dl Total Bilirubin 1.4 H (0.2-1.0) mg/dl AST 37 (13-39) U/L ALT 20 (7-52) U/L Alkaline Phosphatase 77 (34-104) U/L Troponin I High Sens 6.1 (0-14) pg/ml B-Natriuretic Peptide (0-100) pg/ml Total Protein 5.6 L (6.0-8.3) gm/dl Albumin 2.9 L (3.4-5.0) gm/dl Globulin 2.7 (2.5-4.0) gm/dl Albumin/Globulin Ratio 1.1 (0.9-2) TSH 0.505 (0.300-4.500) uIu/ml Urine Color Urine Appearance (Clear) Urine pH (4.5-7.5) Ur Specific [place] (1.000-1.030) Urine Protein (Negative) Urine Glucose (UA) (Negative) Urine Ketones (Negative) Urine Blood (Negative) Urine Nitrite (Negative) Urine Bilirubin (Negative) Urine Urobilinogen (Negative) Ur Leukocyte Esterase (Negative) Urine WBC (Auto) (0-5) /hpf Urine RBC (Auto) (0-4) /hpf U Hyaline Cast (Auto) (0-5) /lpf U Epithel Cells (Auto) (0-5) /lpf Urine Bacteria (Auto) (Negative) SARS-CoV-2, RNA, NAAT (NEGATIVE) 10/28/22 10/28/22 10/28/22 Range/Units 15:13 15:13 17:56 WBC (4.8-10.8) K/ul RBC (4.20-5.40) M/uL Hgb (12.0-16.0) g/dl Hct (37.0-47.0) % MCV (80.0-100.0) fL MCH (25.0-34.0) pg MCHC (32.0-36.0) g/dL RDW Std Deviation (36.4-46.3) fL RDW Coeff of [place] (11.5-14.5) % Plt Count (130-400) K/uL MPV (9.4-12.4) fL Immature Gran % (Auto) % Neut % (Auto) % Lymph % (Auto) % [place] % (Auto) % Eos % (Auto) % Baso % (Auto) % Neut # (Auto) (1.40-6.50) K/uL Lymph # (Auto) (1.2-3.4) K/uL [place] # (Auto) (0.11-0.59) K/uL Eos # (Auto) (0-0.50) K/uL Baso # (Auto) (0-0.2) K/uL Immature Gran # (Auto) (0.01-0.20) K/uL Platelet Estimate (Normal) Polychromasia Macrocytosis Tear Drop Cells Ovalocytes Sodium (136-145) mmol/L Potassium (3.5-5.1) mmol/L Chloride (98-107) mmol/L Carbon Dioxide (21-32) mmol/L Anion Gap (3-11) BUN (6-23) mg/dl Creatinine (0.6-1.2) mg/dl Est Cr Clr Drug Dosing ml/min Est GFR ( Amer) ml/min Est GFR (Non-Af Amer) ml/min BUN/Creatinine Ratio (10-20) Glucose (70-99(Fasting)) mg/dl Calcium (8.5-10.1) mg/dl Magnesium (1.7-2.4) mg/dl Total Bilirubin (0.2-1.0) mg/dl AST (13-39) U/L ALT (7-52) U/L Alkaline Phosphatase (34-104) U/L Troponin I High Sens (0-14) pg/ml B-Natriuretic Peptide 78 (0-100) pg/ml Total Protein (6.0-8.3) gm/dl Albumin (3.4-5.0) gm/dl Globulin (2.5-4.0) gm/dl Albumin/Globulin Ratio (0.9-2) TSH (0.300-4.500) uIu/ml Urine Color Dark Yellow Urine Appearance Cloudy A (Clear) Urine pH 6.5 (4.5-7.5) Ur Specific [place] 1.024 (1.000-1.030) Urine Protein 1+ H (Negative) Urine Glucose (UA) Negative (Negative) Urine Ketones Trace H (Negative) Urine Blood 3+ H (Negative) Urine Nitrite Negative (Negative) Urine Bilirubin Negative (Negative) Urine Urobilinogen Negative (Negative) Ur Leukocyte Esterase 2+ H (Negative) Urine WBC (Auto) >30 H (0-5) /hpf Urine RBC (Auto) >30 H (0-4) /hpf U Hyaline Cast (Auto) 0 (0-5) /lpf U Epithel Cells (Auto) 10-20 H (0-5) /lpf Urine Bacteria (Auto) Negative (Negative) SARS-CoV-2, RNA, NAAT NEGATIVE (NEGATIVE) Administered Medications Discontinued Medications Ceftriaxone Sodium 1,000 mg/ (Dextrose) 50 mls @ 100 mls/hr IV NOW STA Stop: 10/28/22 20:02 Last Infusion: 10/28/22 21:07 Dose: 0 mls/hr Documented By: Admin: 10/28/22 20:30 Dose: 100 mls/hr Documented By: UMER Trimethoprim/Sulfamethoxazole (Sulfamethoxazole/Trimethoprim Ds 800/160mg Tab) 1 tab PO NOW ONE Stop: 10/28/22 19:34 Last Admin: 10/28/22 19:43 Dose: 1 tab Documented By: UMER Imaging Data Radiologist's Impression: Chest X-Ray 10/28/22 14:09 XR chest 1V portable CLINICAL HISTORY: Dysrhythmia TECHNIQUE: Single frontal radiograph of the chest was obtained. Comparison: Comparison is made to chest radiograph 2 04/16/2023 FINDINGS: A port catheter is seen. Cardiomegaly is noted. The lungs are clear. No evidence of pleural effusion or pneumothorax. IMPRESSION: No acute chest disease. Cardiomegaly is noted. ACT 112: Negative or not required by law. Electronically signed by: Barak John M.D. 10/28/2022 2:53 PM Discharge Plan Visit Data Chief Complaint: Illness Stated Complaint: SOB, NAUSEA ED Provider: Chema Acosta Discharge Problem: SOB (shortness of breath), Nausea, Generalized weakness, Urinary tract infection Forms Stand Alone Forms: [facility] Prescriptions Prescriptions: No Action oxybutynin chloride 5 mg tablet 5 mg PO BID levothyroxine 150 mcg tablet 150 mcg PO QAM Trulicity 4.5 mg/0.5 mL pen injector 4.5 mg SUBCUT WK Rx Instructions: TAKE THIS MED EVERY MONDAY. mupirocin 2 % ointment 1 applic TOPICAL BID oxycodone 5 mg tablet 5 mg PO Q6H PRN (Reason: pain) Qty: 20 0RF silver sulfadiazine 1 % Cream 1 applic TOPICAL DAILY atorvastatin 80 mg tablet 80 mg PO PM albuterol sulfate 2.5 mg /3 mL (0.083 %) Solution For Nebulization 2.5 mg INHALATION DIRECTED PRN (Reason: Shortness Of Breath Or Wheezing) isosorbide mononitrate 30 mg tablet extended release 24 hr 30 mg PO DAILY potassium chloride 10 mEq tablet extended release 10 meq PO QAM Rx Instructions: TAKE WITH FOOD spironolactone 25 mg tablet 50 mg PO DAILY pantoprazole 20 mg tablet,delayed release (DR/EC) 40 mg PO BID Rx Instructions: TAKE TWO TABLETS TWICE DAILY gabapentin 300 mg capsule 600 mg PO QPM Rx Instructions: TAKE TWO CAPSULES IN THE EVENING. gabapentin 300 mg capsule 300 mg PO BID MDD 6 CAP Rx Instructions: Take 1 tab in am & mid day. May take extra dose in AM & MID DAY PRN. Total of 6 a day max. aspirin 81 mg tablet,chewable 81 mg PO DAILY furosemide 20 mg tablet 20 mg PO DAILY PRN (Reason: .LOWER EXTREMITY SWELLING) albuterol sulfate 5 mg/mL Solution For Nebulization 2.5 mg INHALATION DIRECTED PRN (Reason: Shortness Of Breath Or Wheezing) insulin aspart U-100 [Novolog FlexPen U-100 Insulin] 100 unit/mL (3 mL) insulin pen See Rx Instructions .ROUTE .COMPLEX Rx Instructions: 35 UNITS @ BREAKFAST, 39 UNITS @ BEFORE LUNCH, 45 UNITS BEFORE SUPPER insulin glargine [Lantus Solostar U-100 Insulin] 100 unit/mL (3 mL) insulin pen 50 unit SUBCUT HS trazodone 50 mg tablet 50 mg PO HS lidocaine-prilocaine 2.5-2.5 % Cream 1 applic topical DIRECTED PRN (Reason: MEDI-PORT) Rx Instructions: APPLY WHEN ACCESSING PORT; APPLY TO SKIN OVER MEDIPORT AND COVER OND HOUR PRIOR TO ACCESSING. nadolol 40 mg tablet 40 mg PO DAILY fluticasone propionate [Flonase Allergy Relief] 50 mcg/actuation [place],Suspension 2 spray INTRANASAL DAILY Rx Instructions: administer into each nostril escitalopram oxalate 20 mg tablet 20 mg PO DAILY budesonide-formoterol 160-4.5 mcg/actuation Hfa Aerosol Inhaler 2 puff INHALATION BID PRN (Reason: Shortness Of Breath Or Wheezing) metformin 500 mg tablet extended release 24 hr 500 mg PO DAILY Rx Instructions: TAKE WITH A MEAL lactulose 20 gram/30 mL Solution 30 g PO TID Qty: 1200 0RF Linzess 145 mcg Capsule 290 mcg PO DAILY Qty: 30 0RF Referrals Referrals: Vanita Dunn MD [Primary Care Provider] -
--- NOTE | 2022-10-28 14:54 | XRay Report ---
XR chest 1V portable CLINICAL HISTORY: Dysrhythmia TECHNIQUE: Single frontal radiograph of the chest was obtained. Comparison: Comparison is made to chest radiograph 2 04/16/2023 FINDINGS: A port catheter is seen. Cardiomegaly is noted. The lungs are clear. No evidence of pleural effusion or pneumothorax. IMPRESSION: No acute chest disease. Cardiomegaly is noted. ACT 112: Negative or not required by law. Electronically signed by: Barak John M.D. 10/28/2022 2:53 PM
[2022-10-28 15:56] LABS: Albumin Globulin Ratio 1.1 (0.9-2); Albumin Level 2.9 gm/dl (3.4-5.0); BUN Creatinine Ratio 24.5 (10-20); Bilirubin,Total 1.4 mg/dl (0.2-1.0); Calcium 8.5 mg/dl (8.5-10.1); Creatinine Clr Calc Pharmacy 132.3 ml/min; Est GFR (African American) 113.9 ml/min; Est GFR (Non-African American) 98.2 ml/min; Globulin 2.7 gm/dl (2.5-4.0); Magnesium 1.7 mg/dl (1.7-2.4); Potassium 4.3 mmol/L (3.5-5.1); Total Protein 5.6 gm/dl (6.0-8.3)
[2022-10-28 15:58] LABS: Hematocrit (blood only) 29.3 % (37.0-47.0); Hemoglobin 9.6 g/dl (12.0-16.0); Mean Corpuscular Hemoglobin 37.2 pg (25.0-34.0); Mean Corpuscular Hgb Conc 32.8 g/dL (32.0-36.0); Mean Corpuscular Volume 113.6 fL (80.0-100.0); Mean Platelet Volume 12.9 fL (9.4-12.4); Platelet Count 76 K/uL (130-400); RDW Coefficient of Variation 17.3 % (11.5-14.5); RDW Standard Deviation 71.7 fL (36.4-46.3); Red Blood Count 2.58 M/uL (4.20-5.40); White Blood Count 4.18 K/ul (4.8-10.8)
[2022-10-28 16:02] LABS: Troponin I High Sensitivity 6.1 pg/ml (0-14)
[2022-10-28 16:18] LABS: Basophils # (auto) 0.03 K/uL (0-0.2); Basophils % (auto) 0.7 %; Eosinophils # (auto) 0.19 K/uL (0-0.50); Eosinophils % (auto) 4.5 %; Immature Granulocytes # (auto) 0.02 K/uL (0.01-0.20); Immature Granulocytes % (auto) 0.5 %; Lymphocytes # (auto) 0.77 K/uL (1.2-3.4); Lymphocytes % (auto) 18.4 %; Macrocytosis Present; Monocytes # (auto) 0.35 K/uL (0.11-0.59); Monocytes % (auto) 8.4 %; Neutrophils # (auto) 2.82 K/uL (1.40-6.50); Neutrophils % (auto) 67.5 %; Ovalocytes 1+; Platelet Estimate Decreased (Normal); Polychromasia 1+; Tear Drop Cells 2+
[2022-10-28 18:08] LABS: Appearance Urine Cloudy (Clear); Bacteria Urine Automated Negative (Negative); Bilirubin Urine Negative (Negative); Blood Urine 3+ (Negative); Cast Urine Automated 0 /lpf (0-5); Color Urine Dark Yellow; Glucose Urine UA Negative (Negative); Ketones Urine Trace (Negative); Leukocyte Esterase Urine 2+ (Negative); Nitrite Urine Negative (Negative); Protein Urine 1+ (Negative); RBC Urine Automated >30 /hpf (0-4); Specific Gravity Urine 1.024 (1.000-1.030); Urobilinogen Urine Negative (Negative); WBC Urine Automated >30 /hpf (0-5); pH Urine 6.5 (4.5-7.5)
[2022-10-28] MEDS ORDERED: SULFAMETHOXAZOLE/TRIMETHOPRIM DS 800/160MG TAB PO ONE (19:33)
[2022-10-28] MEDS ORDERED: cefTRIAXone SODIUM 1,000 MG in DEXTROSE 5% AD-VAN 50 ML IV STA (19:33)
[2022-10-29] MEDS ORDERED: GLUCOSE 40% GEL 15 GM TUBE PO PRN (00:46)
[2022-10-29] MEDS ORDERED: FUROSEMIDE 20 MG TAB PO PRN (00:46)
[2022-10-29] MEDS ORDERED: POLYETHYLENE (MIRALAX) 17 GM PACK PO PRN (00:46)
[2022-10-29] MEDS ORDERED: ALBUTEROL 0.083% NEBU SOLN 3 ML VIAL INH PRN (00:46)
[2022-10-29] MEDS ORDERED: GLUCAGON FOR INJ 1 MG VIAL SQ PRN (00:46)
[2022-10-29] MEDS ORDERED: ACETAMINOPHEN 325 MG TAB PO PRN (00:46)
[2022-10-29] MEDS ORDERED: GLUCOSE 10 TAB/TUBE PO PRN (00:46)
[2022-10-29] MEDS ORDERED: NITROGLYCERIN SL 0.4 MG/TAB TAB SL PRN (00:46)
[2022-10-29] MEDS ORDERED: oxyCODONE HCL IR 5 MG TAB (IMMEDIATE RELEASE) PO PRN (00:46)
[2022-10-29] MEDS ORDERED: LIDOCAINE/PRILOCAINE 2.5% EA CRM EXT PRN (00:46)
[2022-10-29] MEDS ORDERED: DEXTROSE 50% 50 ML SYRINGE IV PRN (00:46)
[2022-10-29] MEDS ORDERED: CARBOHYDRATES FOR HYPOGLYCEMIA PO PRN (00:46)
[2022-10-29] MEDS ORDERED: FLUTICASONE/VILANTEROL 200/25MCG 14 PUFFS/INHALER INH PRN (01:12)
[2022-10-29] MEDS ORDERED: GABAPENTIN 300 MG CAP PO PRN (01:16)
--- NOTE | 2022-10-29 01:37 | History and Physical Report ---
DATE OF ADMISSION: 10/28/2022. CHIEF COMPLAINT: Shortness of breath. HISTORY OF PRESENT ILLNESS: This is a 67-year-old female with past medical history significant for diabetes, diabetic peripheral neuropathy, hyperlipidemia, hypothyroidism, obstructive sleep apnea, on CPAP, obstructive lung disease, history of cirrhosis of liver, esophageal varices, chronic diastolic CHF, hypertension,NG, portal hypertensive gastropathy, obesity, GERD, urinary incontinence, venous stasis dermatitis of both lower extremities, fibromyalgia, degenerative disk disease, history of cerebral palsy, chronic pain syndrome, thrombocytopenia, iron deficiency anemia due to chronic blood loss, pancytopenia, recurrent depression, insomnia, currently bedbound since last one year because of history of cerebral palsy and arthritis. Lives at home with her , presents with shortness of breath. The patient was recently in the hospital with choking episode. At that time, the patient was having lot of coughing.When she was eating noodles, she coughed and the noodles went inside, struck in her throat. EMS was able to pull noodles from her throat . She did fine. Currently, she is eating regular food. Recommendation was to eat minced and moist food, and she was discharged on Flagyl and Omnicef and she has couple more days of antibiotics . Comes today because of feeling short of breath . Here, she is saturating okay on room air. Chest x-ray looks okay. and the patient was not comfortable going home and also she was found to have UTI, resting comfortably, hemodynamically stable. She has chronic headaches, no blurred visions, no runny nose, no sore throat at this time. History of chronic cough .. Denies any chest pain. She has some left-sided chest pain at home but none now. Complains of some shortness of breath, but seems better now. No nausea, no abdominal pain. Normal bowel and bladder movements. She has chronic swelling in the legs. ALLERGIES: ADHESIVE TAPE, PENICILLIN, PERFLUTREN. PAST MEDICAL HISTORY: As mentioned above. PAST SURGICAL HISTORY: Bone debridement, , colonoscopy, dental surgery, dilatation and curettage, EGD, hysteroscopy with biopsy, insertion of intrauterine device, MediPort placement, loop electrode surgery, repair of Achilles tendon. MEDICATIONS: The patient is on albuterol nebulization p.r.n., aspirin 81 mg p.o. daily, atorvastatin 80 mg p.o. p.m., budesonide/formoterol 2 puffs inhalation b.i.d. p.r.n., Lexapro 20 mg p.o. daily, Flonase 2 sprays intranasal daily, Lasix 20 mg p.o. daily p.r.n., gabapentin 600 mg p.o. p.m., gabapentin 300 mg p.o. b.i.d., NovoLog FlexPen sliding scale, Lantus 15 units subcutaneous at bedtime, isosorbide mononitrate 30 mg p.o. daily, lactulose 30 gm p.o. t.i.d., levothyroxine 150 mcg p.o. daily, lidocaine-prilocaine application topical p.r.n., Linzess 290 mcg p.o. daily, metformin 500 mg p.o. daily, mupirocin 1 application topical b.i.d., nadolol 40 mg p.o. daily, oxybutynin chloride 5 mg p.o. b.i.d., oxycodone 5 mg p.o. q. 6 hours p.r.n., Protonix 40 mg p.o. b.i.d., potassium chloride 10 mEq p.o. a.m., spironolactone 50 mg p.o. daily, trazodone 50 mg p.o. at bedtime, Trulicity 4.5 mg subcutaneous weekly. FAMILY HISTORY: Significant for father has diabetes, [place]; mother has [place]; sister has [place], hypertension. SOCIAL HISTORY: . Lives with her . No smoking, alcohol rare, no drug use. REVIEW OF SYSTEMS: As per HPI. Rest of review of systems is negative. PHYSICAL EXAMINATION: GENERAL: The patient is morbidly obese, not in acute distress. VITAL SIGNS: Temperature 36.8, pulse 57, respiratory rate 15, blood pressure 125/85, oxygen 93% on nasal cannula. HEENT: Pupils equal, round and reactive to light. Oral mucosa moist. NECK: No JVD, no neck masses. CARDIOVASCULAR: S1 and S2 heard, regular rate and rhythm. No obvious murmur. RESPIRATORY SYSTEM: Normal AP diameter. No accessory muscle use. No wheezing or crackles. ABDOMEN: Soft, bowel sounds present, nontender, no distention. CENTRAL NERVOUS SYSTEM: Alert and oriented. Speech is clear. No facial droop. Obeys simple commands. Moves extremities. EXTREMITIES: Lower extremity swelling and chronic skin changes seen. LABORATORY DATA: WBC 4.1, hemoglobin 9.8, hematocrit 39.9 currently, platelets 76. Sodium 139, potassium 4.3, chloride 110, bicarbonate 29, BUN 13, creatinine 0.5, serum glucose 158, calcium 8.5, magnesium 1.7, total bilirubin 1.4, AST 37, ALT 20, alkaline phosphatase 77. Troponin I high sensitivity 6.1. BNP 78. TSH 0.5. Urinalysis, +2 leukocyte esterase. SARS-CoV-2 rapid test negative. IMAGING DATA: Chest x-ray, no acute chest disease. Cardiomegaly noted. EKG: Sinus rhythm with first-degree AV block at a rate of 63, nonspecific ST changes seen. ASSESSMENT AND PLAN: This is a 67-year-old female, who presents with shortness of breath. 1. Shortness of breath: Oxygen sats okay. recently had choking episode. We will continue to monitor. Aspiration precautions.Will complete her antibiotics, Flagyl for two more days. Placed on Rocephin. 2. Urinary tract infection: MRSA and klebsiella in in the past.ER gave Rocephin and Bactrim, which will be continued. Follow the cultures. Follow the response. 3. Obstructive sleep apnea: On CPAP at bedtime. 4. Hypothyroidism: On Synthroid. 5. Diabetes. Continue home Lantus and insulin sliding scale. Follow the blood sugars. 6. History of migraines, history of chronic headaches. We will monitor. 7. Pancytopenia. We will follow the labs. 8. History of cerebral palsy, morbid obesity, ambulatory dysfunction, mostly bedbound. 9. History of cirrhosis of liver, NG: Continue home nadolol, Protonix, lactulose and diuretics. Monitor for any volume overload. 10. Chronic diastolic congestive heart failure: On diuretics. Monitor for volume overload. 11. Depression: Continue Lexapro. 12. Deep venous thrombosis prophylaxis: Sequential compression devices for now as the patient has thrombocytopenia. DISPOSITION: Closely monitor in the med tele. Expect to discharge home and follow with family doctor. Social service to help with discharge planning. Job ID: [id number] [facility]
[2022-10-29] MEDS ORDERED: HEPARIN 100 UNIT/ML 5ML FLUSH FLUSH PRN (03:21)
[2022-10-29 06:26] LABS: Hematocrit (blood only) 29.3 % (37.0-47.0); Hemoglobin 9.7 g/dl (12.0-16.0); Mean Corpuscular Hgb Conc 33.1 g/dL (32.0-36.0); Mean Corpuscular Volume 111.8 fL (80.0-100.0); Mean Platelet Volume 12.8 fL (9.4-12.4); Platelet Count 74 K/uL (130-400); RDW Coefficient of Variation 17.3 % (11.5-14.5); RDW Standard Deviation 72.1 fL (36.4-46.3); Red Blood Count 2.62 M/uL (4.20-5.40); White Blood Count 3.61 K/ul (4.8-10.8)
[2022-10-29] MEDS ORDERED: LEVOTHYROXINE SODIUM 150 MCG TABLET PO SCH (06:30)
[2022-10-29 06:35] LABS: Calcium 8.6 mg/dl (8.5-10.1); Creatinine Clr Calc Pharmacy 122.8 ml/min; Est GFR (African American) 109.9 ml/min; Est GFR (Non-African American) 94.8 ml/min; Magnesium 1.8 mg/dl (1.7-2.4); Potassium 4.3 mmol/L (3.5-5.1)
[2022-10-29 07:10] LABS: Basophils # (auto) 0.03 K/uL (0-0.2); Basophils % (auto) 0.8 %; Eosinophils # (auto) 0.16 K/uL (0-0.50); Eosinophils % (auto) 4.4 %; Immature Granulocytes # (auto) 0.01 K/uL (0.01-0.20); Immature Granulocytes % (auto) 0.3 %; Lymphocytes % (auto) 19.4 %; Monocytes # (auto) 0.33 K/uL (0.11-0.59); Monocytes % (auto) 9.1 %; Neutrophils # (auto) 2.38 K/uL (1.40-6.50); Ovalocytes 2+; Polychromasia 1+; Tear Drop Cells 2+
[2022-10-29] MEDS: metroNIDAZOLE 500 MG TAB PO SCH ×2 (07:53→14:09)
[2022-10-29] MEDS: GABAPENTIN 300 MG CAP PO SCH ×2 (07:56→14:09)
[2022-10-29] MEDS: LACTULOSE SYRUP 30 GM/45 ML UDP PO SCH ×2 (07:57→11:51)
[2022-10-29] MEDS: INSULIN ASPART PER UNIT SC SCH ×2 (08:01→11:53)
[2022-10-29 08:22] LABS: Estimated Average Glucose 143 mg/dl; Hemoglobin A1C 6.6 % (4.5-5.6)
[2022-10-29] MEDS ORDERED: LINACLOTIDE 145 MCG CAPSULE PO SCH (09:00)
[2022-10-29] MEDS ORDERED: SULFAMETHOXAZOLE/TRIMETHOPRIM DS 800/160MG TAB PO SCH (09:00)
[2022-10-29] MEDS ORDERED: PANTOprazole 40 MG TAB PO SCH (09:00)
[2022-10-29] MEDS ORDERED: ESCITALOPRAM OXALATE 20 MG TAB PO SCH (09:00)
[2022-10-29] MEDS ORDERED: ASPIRIN 81 MG ECTAB PO SCH (09:00)
[2022-10-29] MEDS ORDERED: nadoloL 40 MG TAB PO SCH (09:00)
[2022-10-29] MEDS ORDERED: FLUTICASONE PROPIONATE NA SPR 16 GM BTL SCH (09:00)
[2022-10-29] MEDS ORDERED: cefTRIAXone SODIUM 2,000 MG in DEXTROSE 5% 50 ML IV SCH (09:00)
[2022-10-29] MEDS ORDERED: MUPIROCIN 2% OINT 22 GM TUBE TOP SCH (09:00)
[2022-10-29] MEDS ORDERED: ISOSORBIDE MONO EXTENDED REL 30 MG TABCR PO SCH (09:00)
[2022-10-29] MEDS ORDERED: SPIRONOLACTONE 25 MG TAB PO SCH (09:00)
[2022-10-29] MEDS ORDERED: OXYBUTYNIN CHLORIDE 5 MG TAB PO SCH (09:00)
[2022-10-29] MEDS ORDERED: POTASSIUM CHLORIDE 10 MEQ TABCR PO SCH (09:00)
--- NOTE | 2022-10-29 10:47 | Electrocardiogram Report ---
Test Reason : Blood Pressure : / mmHG Vent. Rate : 063 BPM Atrial Rate : 063 BPM P-R Int : 218 ms QRS Dur : 086 ms QT Int : 438 ms P-R-T Axes : 056 001 046 degrees QTc Int : 448 ms Sinus rhythm with 1st degree A-V block Low voltage QRS Borderline ECG When compared with ECG of 16-OCT-2022 22:13, WA interval has increased Borderline criteria for Anterior infarct are no longer Present Borderline criteria for Anterolateral infarct are no longer Present Criteria for Inferior infarct are no longer Present Confirmed by Mushtaq Lazcano ([id number]) on 10/29/2022 10:47:14 AM Referred By: REFERRED SELF Confirmed By:Mushtaq Lazcano
--- NOTE | 2022-10-29 12:05 | Discharge Summary ---
Date of Service October 29, 2022 Admission HPI Per Admitting Provider CHIEF COMPLAINT: Shortness of breath. HISTORY OF PRESENT ILLNESS: This is a 67-year-old female with past medical history significant for diabetes, diabetic peripheral neuropathy, hyperlipidemia, hypothyroidism, obstructive sleep apnea, on CPAP, obstructive lung disease, history of cirrhosis of liver, esophageal varices, chronic diastolic CHF, hypertension,NG, portal hypertensive gastropathy, obesity, GERD, urinary incontinence, venous stasis dermatitis of both lower extremities, fibromyalgia, degenerative disk disease, history of cerebral palsy, chronic pain syndrome, thrombocytopenia, iron deficiency anemia due to chronic blood loss, pancytopenia, recurrent depression, insomnia, currently bedbound since last one year because of history of cerebral palsy and arthritis. Lives at home with her , presents with shortness of breath. The patient was recently in the hospital with choking episode. At that time, the patient was having lot of coughing.When she was eating noodles, she coughed and the noodles went inside, struck in her throat. EMS was able to pull noodles from her throat . She did fine. Currently, she is eating regular food. Recommendation was to eat minced and moist food, and she was discharged on Flagyl and Omnicef and she has couple more days of antibiotics . Comes today because of feeling short of breath . Here, she is saturating okay on room air. Chest x-ray looks okay. and the patient was not comfortable going home and also she was found to have UTI, resting comfortably, hemodynamically stable. She has chronic headaches, no blurred visions, no runny nose, no sore throat at this time. History of chronic cough .. Denies any chest pain. She has some left-sided chest pain at home but none now. Complains of some shortness of breath, but seems better now. No nausea, no abdominal pain. Normal bowel and bladder movements. She has chronic swelling in the legs. ALLERGIES: ADHESIVE TAPE, PENICILLIN, PERFLUTREN. PAST MEDICAL HISTORY: As mentioned above. PAST SURGICAL HISTORY: Bone debridement, , colonoscopy, dental surgery, dilatation and curettage, EGD, hysteroscopy with biopsy, insertion of intrauterine device, MediPort placement, loop electrode surgery, repair of Achilles tendon. MEDICATIONS: The patient is on albuterol nebulization p.r.n., aspirin 81 mg p.o. daily, atorvastatin 80 mg p.o. p.m., budesonide/formoterol 2 puffs inhalation b.i.d. p.r.n., Lexapro 20 mg p.o. daily, Flonase 2 sprays intranasal daily, Lasix 20 mg p.o. daily p.r.n., gabapentin 600 mg p.o. p.m., gabapentin 300 mg p.o. b.i.d., NovoLog FlexPen sliding scale, Lantus 15 units subcutaneous at bedtime, isosorbide mononitrate 30 mg p.o. daily, lactulose 30 gm p.o. t.i.d., levothyroxine 150 mcg p.o. daily, lidocaine-prilocaine application topical p.r.n., Linzess 290 mcg p.o. daily, metformin 500 mg p.o. daily, mupirocin 1 application topical b.i.d., nadolol 40 mg p.o. daily, oxybutynin chloride 5 mg p.o. b.i.d., oxycodone 5 mg p.o. q. 6 hours p.r.n., Protonix 40 mg p.o. b.i.d., potassium chloride 10 mEq p.o. a.m., spironolactone 50 mg p.o. daily, trazodone 50 mg p.o. at bedtime, Trulicity 4.5 mg subcutaneous weekly. FAMILY HISTORY: Significant for father has diabetes, [place]; mother has [place]; sister has [place], hypertension. SOCIAL HISTORY: . Lives with her . No smoking, alcohol rare, no drug use. REVIEW OF SYSTEMS: As per HPI. Rest of review of systems is negative. Admission Exam Per Admitting Provider GENERAL: The patient is morbidly obese, not in acute distress. VITAL SIGNS: Temperature 36.8, pulse 57, respiratory rate 15, blood pressure 125/85, oxygen 93% on nasal cannula. HEENT: Pupils equal, round and reactive to light. Oral mucosa moist. NECK: No JVD, no neck masses. CARDIOVASCULAR: S1 and S2 heard, regular rate and rhythm. No obvious murmur. RESPIRATORY SYSTEM: Normal AP diameter. No accessory muscle use. No wheezing or crackles. ABDOMEN: Soft, bowel sounds present, nontender, no distention. CENTRAL NERVOUS SYSTEM: Alert and oriented. Speech is clear. No facial droop. Obeys simple commands. Moves extremities. EXTREMITIES: Lower extremity swelling and chronic skin changes seen. Principal Diagnosis Possible uti Discharge Exam GENERAL: Alert and oriented x3. NAD, on RA. Morbidly obese. HEENT: No pallor, no icterus. Pupils equal, round and reactive to light. Oral mucosa moist. NECK: No JVD, no neck masses. HEART: S1 and S2 heard. Regular rate and rhythm. No murmur, no gallop. RESPIRATORY SYSTEM: Normal AP diameter. No accessory muscle use. No wheezing, no crackles. ABDOMEN: Soft, bowel sounds present, nontender, no distention. CENTRAL NERVOUS SYSTEM: No facial droop. Speech is clear. Obeys simple commands. Moves extremities. EXTREMITIES: trace edema, chronic skin changes seen Discharge Data Allergies Allergy/AdvReac Type Severity Reaction Status Date / Time adhesive tape Allergy Intermediate ITCHING Verified 10/19/22 16:42 Penicillins Allergy Intermediate Rash Verified 10/19/22 16:42 perflutren AdvReac Intermediate LOWER BACK Verified 10/19/22 16:42 PAIN Hospital Course (1) Urinary tract infection: Plan 67-year-old female with past medical history significant for diabetes, diabetic peripheral neuropathy, hyperlipidemia, hypothyroidism, obstructive sleep apnea, on CPAP, obstructive lung disease, history of cirrhosis of liver, esophageal varices, chronic diastolic CHF, hypertension,NG, portal hypertensive gastropathy, obesity, GERD, urinary incontinence, venous stasis dermatitis of both lower extremities, fibromyalgia, degenerative disk disease, history of cerebral palsy, chronic pain syndrome, thrombocytopenia, iron deficiency anemia due to chronic blood loss, pancytopenia, recurrent depression, insomnia, currently bedbound since last one year because of history of cerebral palsy and arthritis. Lives at home with her , presents with shortness of breath. Of note, patient was recently admitted to the hospital with choking episode and was discharged on cefdinir and metronidazole which she is due to complete within the next few days. She was recommended minced and moist food but has been eating regular consistency food. Patient reports having shortness of breath briefly and also states her measured her oxygen and it was "95" and is not sure whether she had chest pain or not. During admission process, she was found to be hemodynamically stable and on room air without any complaints but since the and the patient was not comfortable going home, she was admitted. Her urine analysis was also suggestive of questionable UTI and urine culture is pending. Patient was started on Rocephin and Bactrim given history of Klebsiella and MRSA UTI. As the patient was taking her cefdinir since last 1 week (due to complete the course within next few days), will discharge her on Bactrim only and patient is to follow-up with the final urine culture results when she visits her PCP within a week time upon discharge. Patient aware. During my bedside exam, patient states that " I would like to go home, I am back to my baseline and does not need to be here". She wasn't interested in PT/OT eval as well, she was fixed that she wanted to go home. Following instructions were communicated at the point of discharge: Follow-up with your primary care physician within a week time and likely you will need labs CBC/CMP/magnesium/phosphorus. Complete your prior antibiotics as prescribed to complete the course. For possible UTI, you will be discharged on Bactrim based on your previous urine culture reports, your admitting urine culture needs to be followed up with your PCP office when you visit your PCP in a week time upon discharge. At that point, your antibiotics may change depending on the culture results. Take your medications as prescribed. Please make sure that you are able to get your medications today by calling your pharmacy before you leave the hospital so that your treatment continuity is not broken. Home Health Attestation I certify that this patient is under my care and that I, or a physicians chemistry research assistant working with me, had a face to-face encounter that meets the home health [id number] encounter requirements with this patient. The encounter with the patient was in whole, or in part, for the following medical condition, which is the primary reason for home health care (list medical condition): I certify that, based on my findings, the following services are medically necessary home health services: My clinical findings support the need for the above services because: Further, I certify that my clinical findings support that this patient is homebound (i.e. absences from home require considerable and taxing effort and are for medical reasons or scientologist services or infrequently or of short duration when for other reasons) because: Certification for Home Health Services: Based on the above findings, I certify that this patient is confined to the home and needs intermittent longterm care, physical therapy and/or speech therapy or continues to need occupational therapy. The patient is under my care, and I have initiated the establishment of the plan of care. This patient will be followed by a physician who will periodically review the plan of care. Total Time Total Time Spent Total Time Spent (In Minutes): 50 Discharge Plan Discharge Items Patient Disposition: Home - Self-Care Reason For Visit: SOB Discharge Diagnosis: Possible UTI Activity: Resume your previous activity Non-emergency contact: Primary Care Provider Call non-emergency contact if: you have any medication questions, your pain is not controlled and your temperature is above 101 Follow-up/Referrals: Vanita Dunn MD [Primary Care Provider] - Diet: Carb Consistent or DM2, Heart Healthy and Low Fat Diet Comment: Minced and moist diet Addtl Attending Provider Instructions: Follow-up with your primary care physician within a week time and likely you will need labs CBC/CMP/magnesium/phosphorus. Complete your prior antibiotics as prescribed to complete the course. For possible UTI, you will be discharged on Bactrim based on your previous urine culture reports, your admitting urine culture needs to be followed up with your PCP office when you visit your PCP in a week time upon discharge. At that point, your antibiotics may change depending on the culture results. Take your medications as prescribed. Please make sure that you are able to get your medications today by calling your pharmacy before you leave the hospital so that your treatment continuity is not broken. Pending Studies at Discharge: Yes (Admitting urine culture final results) Stand-Alone Forms: My [facility] [place], Smoking Cessation Medications and DC Order Prescriptions: New sulfamethoxazole-trimethoprim [Bactrim DS] 800-160 mg Tablet 1 tab PO Q12 7 Days Qty: 14 0RF Continued oxybutynin chloride 5 mg tablet 5 mg PO BID levothyroxine 150 mcg tablet 150 mcg PO QAM Trulicity 4.5 mg/0.5 mL pen injector 4.5 mg SUBCUT WK Rx Instructions: TAKE THIS MED EVERY MONDAY. mupirocin 2 % ointment 1 applic TOPICAL BID oxycodone 5 mg tablet 5 mg PO Q6H PRN (Reason: pain) Qty: 20 0RF silver sulfadiazine 1 % Cream 1 applic TOPICAL DAILY atorvastatin 80 mg tablet 80 mg PO PM albuterol sulfate 2.5 mg /3 mL (0.083 %) Solution For Nebulization 2.5 mg INHALATION DIRECTED PRN (Reason: Shortness Of Breath Or Wheezing) isosorbide mononitrate 30 mg tablet extended release 24 hr 30 mg PO DAILY potassium chloride 10 mEq tablet extended release 10 meq PO QAM Rx Instructions: TAKE WITH FOOD spironolactone 25 mg tablet 50 mg PO DAILY pantoprazole 20 mg tablet,delayed release (DR/EC) 40 mg PO BID Rx Instructions: TAKE TWO TABLETS TWICE DAILY gabapentin 300 mg capsule 600 mg PO QPM Rx Instructions: TAKE TWO CAPSULES IN THE EVENING. gabapentin 300 mg capsule 300 mg PO BID MDD 6 CAP Rx Instructions: Take 1 tab in am & mid day. May take extra dose in AM & MID DAY PRN. Total of 6 a day max. aspirin 81 mg tablet,chewable 81 mg PO DAILY furosemide 20 mg tablet 20 mg PO DAILY PRN (Reason: .LOWER EXTREMITY SWELLING) albuterol sulfate 5 mg/mL Solution For Nebulization 2.5 mg INHALATION DIRECTED PRN (Reason: Shortness Of Breath Or Wheezing) insulin aspart U-100 [Novolog FlexPen U-100 Insulin] 100 unit/mL (3 mL) insulin pen See Rx Instructions .ROUTE .COMPLEX Rx Instructions: 35 UNITS @ BREAKFAST, 39 UNITS @ BEFORE LUNCH, 45 UNITS BEFORE SUPPER insulin glargine [Lantus Solostar U-100 Insulin] 100 unit/mL (3 mL) insulin pen 50 unit SUBCUT HS trazodone 50 mg tablet 50 mg PO HS lidocaine-prilocaine 2.5-2.5 % Cream 1 applic topical DIRECTED PRN (Reason: MEDI-PORT) Rx Instructions: APPLY WHEN ACCESSING PORT; APPLY TO SKIN OVER MEDIPORT AND COVER OND HOUR PRIOR TO ACCESSING. nadolol 40 mg tablet 40 mg PO DAILY fluticasone propionate [Flonase Allergy Relief] 50 mcg/actuation [place],Suspension 2 spray INTRANASAL DAILY Rx Instructions: administer into each nostril escitalopram oxalate 20 mg tablet 20 mg PO DAILY budesonide-formoterol 160-4.5 mcg/actuation Hfa Aerosol Inhaler 2 puff INHALATION BID PRN (Reason: Shortness Of Breath Or Wheezing) metformin 500 mg tablet extended release 24 hr 500 mg PO DAILY Rx Instructions: TAKE WITH A MEAL lactulose 20 gram/30 mL Solution 30 g PO TID Qty: 1200 0RF Linzess 145 mcg Capsule 290 mcg PO DAILY Qty: 30 0RF Discharge Orders: Discharge Order (Routine); Ordered 10/29/22 Ordered By: Elias Ayers Admission Data Admit Date/Time: 10/28/22 22:13 Attending Provider: Elias Ayers Admit Provider: Alexis Guardado Primary Care Provider: Vanita Dunn
[2022-10-29] MEDS ORDERED: ATORVASTATIN 40 MG TAB PO SCH (21:00)
[2022-10-29] MEDS ORDERED: traZODone HCL 50 MG TAB PO SCH (21:00)
[2022-10-29] MEDS ORDERED: GABAPENTIN 300 MG CAP PO SCH (21:00)
[2022-10-29] MEDS ORDERED: LANTUS PER UNIT CHARGE SQ SCH (21:00)
== END 2022-10-29 17:36 | disposition home or self-care (01) | DRG 690 ==
LOC: ED 14:02 → SUATTDRO 22:13 → 2E 22:13

== ENCOUNTER 2023-05-09 20:29 | Inpatient (IN) ==
[2023-05-09] MEDS ORDERED: CEFEPIME 2,000 MG/20 ML VIAL IV STA (20:42)
[2023-05-09] MEDS ORDERED: ALBUT/IPRATROP 3MG/0.5MG NEB 3 ML VIAL NEB STA (20:42)
[2023-05-09] MEDS ORDERED: methylPREDNISolone 125 MG/2 ML VIAL IV STA (20:42)
[2023-05-09] MEDS ORDERED: SODIUM CHLORIDE 0.9% 1,000 ML IV ONE ×2 (20:46→22:54)
--- NOTE | 2023-05-09 20:47 | Emergency Department Note ---
Impression & Plan Acute respiratory failure with hypoxia, Cirrhosis, Urinary tract infection, Aspiration into airway, Elevated troponin, Elevated lactic acid level ED Provider Note NAME: RYLAND SHAW AGE: 68 SEX: F ARRIVES VIA: Ambulance INFORMANT: Patient ED PROVIDER(S): Chaim Ge MD CHIEF COMPLAINT: Shortness of breath, respiratory failure PLAN: Disposition: Admit MEDICAL DECISION MAKING: The patient is a pleasant 68-year-old woman with a past medical history of cereb ral palsy, Thompson cirrhosis, fibromyalgia, obesity, chronic pain, nonambulatory at baseline, migraines, THAD, hyperlipidemia who presents to the emergency department via EMS for acute respiratory failure with worsening shortness of breath tonight in the setting of having worsening cough and productive sputum over the past couple of days. Patient reports she had a vomiting episode where she thinks she may have choked prior to onset of worsening symptoms. She reports having nausea and vomiting since Monday. Patient denies fevers, diarrhea or urinary symptoms. Per EMS patient was found with O2 saturation 60% on room air with yellow/green productive sputum requiring suctioning and subsequently placed on CPAP. On arrival to emergency department the patient is ill-appearing in mild respiratory distress but improving on CPAP/BiPAP by EMS. She is afebrile with heart rate in the 90s and blood pressure 80s/60s on CPAP. She has diffuse wheezes and rhonchi bilateral lung tuttle. She appears clinically dry despite mild bilateral lower extremity edema in setting of her cirrhosis. EKG without overt acute ischemia. Chest x-ray without overt focal infiltrates per my preliminary review. WBC 4.7K,, nonspecific. H/H similar to prior. Platelets 69K also similar to prior in the setting of cirrhosis. INR 1.4, similar to prior in setting of cirrhosis. VBG with pH of 7.28 with normal PCO2. Chemistry with bicarbonate of 18 with normal anion gap. Initial lactic acid 3.8 with repeat improved to 3.7 after initial IV fluid hydration administered cautiously in the setting of cirrhosis. Total bilirubin and direct bilirubin elevated at 2.9 and 1.2, respectively, increased from recent. LFTs otherwise within prior range of values in the setting of cirrhosis. Initial high-sensitivity troponin 22 nonspecific. Lipase not elevated. Procalcitonin is elevated 0.97. UA suspicious for infection with positive nitrites, leuk esterase, 3+ bacteria albeit with epithelial cells present. Respiratory viral panel/BioFire was negative. Patient was treated empirically with cefepime on initial pr esentation. MRSA swab pending. She is additionally treated with Solu-Medrol and DuoNeb for component of bronchospasm. Patient was treated with IV fluid hydration with 1 L normal saline and administered cautiously to avoid excess IV fluid in the setting of cirrhosis. Blood pressure did improve remained stable following IV fluid hydration. Case was discussed with [facility] who will evaluate the patient for admission. Further management per admitting team. Triage Nursing notes reviewed and agree them. Prior/outside medical records reviewed Vital Signs: reviewed Differential diagnosis: Reactive airway disease, pneumonia, pneumothorax, COPD, CHF, infections, cardiac ischemia, pulmonary embolism, musculoskeletal, gastrointestinal, as well as other pathologies. ER treatment provided: See below. Diagnostics interpreted by me: ECG: Sinus rhythm with sinus arrhythmia, 92 bpm, no ectopy, no overt ST elevation or depression, QTc 469, QRS 96 Cardiac Monitoring: An order for continuous cardiac monitoring was placed and demonstrated Sinus rhythm with sinus arrhythmia, 92 bpm, no ectopy. Laboratory studies: See below Imaging studies: See below Consultation(s): Case was discussed with Dr. [facility] who will evaluate the patient for admission. HPI: The patient is a pleasant 68-year-old woman with a past medical history of cerebral palsy, Thompson cirrhosis, fibromyalgia, obesity, chronic pain, nonambulatory at baseline, migraines, THAD, hyperlipidemia who presents to the emergency department via EMS for acute respiratory failure with worsening shortness of breath tonight in the setting of having worsening cough and productive sputum over the past couple of days. Patient reports she had a vomiting episode where she thinks she may have choked prior to onset of worsening symptoms. She reports having nausea and vomiting since Monday. Patient denies fevers, diarrhea or urinary symptoms. Per EMS patient was found with O2 saturation 60% on room air with yellow/green productive sputum requiring suctioning and subsequently placed on CPAP. ROS: See above HPI for pertinent positives & negatives. A total of 10 systems reviewed and were otherwise negative. VITALS:See Below PHYSICAL EXAMINATION: GENERAL: Awake, alert, ill-appearing, mild-moderate respiratory distress, BMI 49.6 HENT: Normocephalic, atraumatic. Oropharynx with dry mucous membranes and otherwise unremarkable. EYES: Normal conjunctiva. Sclera non-icteric. NECK: Supple. No nuchal rigidity. FROM. No JVD. RESPIRATORY: Wheezes and rhonchi of bilateral lung tuttle. CARDIAC: Regular rate, normal rhythm. Extremities warm and well perfused. Pulses equal. ABDOMEN: Soft, non-distended. No tenderness to palpation. No rebound or guarding. No masses. RECTAL: Deferred. MUSCULOSKELETAL: Chest examination reveals no tenderness. The back is symmetrical on inspection without obvious abnormality. There is no CVA tenderness to palpation. No joint edema. LOWER EXTREMITIES: Calves are equal size bilaterally and non-tender. Mild bilateral lower extremity edema. No discoloration. NEURO: Normal sensorium. No sensory or motor deficits noted. SKIN: No rash or jaundice noted. ED COURSE: Critical Care: I have personally spent greater than 45 minutes of critical care time in the direct management of this patient. This includes bedside care, interpretation of diagnostic studies, and testing, discussion with consultants, patient, and family members, and other required patient management activities. This 45 minutes is in excess of all separately billable procedures. Chaim Ge MD Past Med/Surg History Medical History Ambulatory dysfunction Asthma DOES NOT USE INH. REPORTS USING NEB TREATMENTS BID. Bilateral lower extremity edema Cardiac murmur does not follow w/ cardio; echo 11/2017 OR Cerebral palsy Chronic back pain Chronic pain Dark stools Diplopia reports intermittent x 1-2 weeks. pt reports PCP aware and scheduled for brain MRI 03/11 at OR. 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 Major depressive disorder, recurrent, moderate Morbid obesity with BMI of 50.0-59.9, adult Obstructive sleep apnea CPAP + OXYGEN AT 2 LPM @ NIGHT On home oxygen therapy 2 LPM @ NIGHT + CPAP Osteoarthritis Pancreatic cyst Poor historian SOB (shortness of breath) on exertion Venous insufficiency Wheelchair bound Surgical History H/O wisdom tooth extraction History of Achilles tendon repair History of section History of colonoscopy History of dilatation and curettage History of esophagogastroduodenoscopy (EGD) EUS 02/22/2019 [facility] History of hip surgery History of strabismus surgery History of tooth extraction Family History Father Family history of diabetes mellitus Myocardial infarction, Onset Age: 61 Mother Myocardial infarction, Onset Age: 72 Sister Myocardial infarction Social History Smoking Status: Never smoker Second Hand Exposure: No; Do You Dip or Chew Tobacco: No; Hx Alcohol Use: No Hx Substance Use: No Preferred Language: Montenegrin Communication Ability: Effective Brick Veneer Maker Required: No Beliefs That Will Affect Care: None marital status: Current Living Situation: Spouse and Family Current Living Situation Comment: Reports home health assists 5 times a week Feels Safe at Home: Yes Assistive Devices: Glasses and Wheelchair Allergies Allergies Allergy/AdvReac Type Severity Reaction Status Date / Time adhesive tape Allergy Intermediate ITCHING Verified 05/09/23 21:28 Penicillins Allergy Intermediate Rash Verified 05/09/23 21:28 perflutren AdvReac Intermediate LOWER BACK Verified 05/09/23 21:28 PAIN Home Meds Home Medications Medication Instructions Recorded Confirmed albuterol sulfate 2.5 mg/3 mL 2.5 mg inhalation Q6H PRN Wheezing 04/30/22 05/09/23 (0.083 %) solution for nebulization aspirin 81 mg chewable tablet 81 mg PO DAILY 04/30/22 05/09/23 atorvastatin 80 mg tablet 80 mg PO PM 04/30/22 05/09/23 escitalopram oxalate 20 mg tablet 20 mg PO DAILY 04/30/22 05/09/23 fluticasone propionate 50 2 spray intranasal DAILY 04/30/22 05/09/23 mcg/actuation nasal spray,suspension (Flonase Allergy Relief) furosemide 20 mg tablet 20 mg PO DAILY 04/30/22 05/09/23 gabapentin 300 mg capsule 300 mg PO BID 04/30/22 05/09/23 gabapentin 300 mg capsule 600 mg PO QPM 04/30/22 05/09/23 insulin aspart U-100 100 unit/mL See Rx Instructions .Route .COMPLEX 04/30/22 05/09/23 (3 mL) subcutaneous pen (Novolog FlexPen U-100 Insulin aspart) insulin glargine 100 unit/mL (3 46 unit subcut DAILY 04/30/22 05/09/23 mL) subcutaneous pen (Lantus Solostar U-100 Insulin) isosorbide mononitrate 30 mg 30 mg PO DAILY 04/30/22 05/09/23 tablet,extended release 24 hr lidocaine-prilocaine 2.5 %-2.5 % 1 applic topical DIRECTED PRN 04/30/22 05/09/23 topical cream MEDI-PORT nadolol 40 mg tablet 40 mg PO DAILY 04/30/22 05/09/23 pantoprazole 20 mg tablet,delayed 40 mg PO BID 04/30/22 05/09/23 release potassium chloride 10 mEq 10 meq PO QAM 04/30/22 05/09/23 tablet,extended release silver sulfadiazine 1 % topical 1 applic topical DAILY apply to 04/30/22 05/09/23 cream wound spironolactone 25 mg tablet 50 mg PO DAILY 04/30/22 05/09/23 trazodone 50 mg tablet 50 mg PO HS 04/30/22 05/09/23 metformin 500 mg tablet,extended 500 mg PO DAILY 06/04/22 05/09/23 release 24 hr dulaglutide 4.5 mg/0.5 mL 4.5 mg subcut WK 09/21/22 05/09/23 subcutaneous pen injector (Trulicity) levothyroxine 150 mcg tablet 150 mcg PO DAILYBB 09/21/22 05/09/23 oxybutynin chloride 5 mg tablet 5 mg PO BID 09/21/22 05/09/23 benzonatate 200 mg capsule 200 mg PO TID PRN Cough 02/25/23 05/09/23 cetirizine 10 mg tablet (Zyrtec) 5 mg PO DAILY 02/25/23 05/09/23 docusate sodium 100 mg capsule 100 mg PO DAILY 02/25/23 05/09/23 fluticasone 250 mcg-salmeterol 50 1 inh inhalation BID 02/25/23 05/09/23 mcg/dose blistr powdr for inhalation (Advair Diskus) linaclotide 290 mcg capsule 290 mcg PO DAILYBB 02/25/23 05/09/23 (Linzess) nitroglycerin 0.4 mg sublingual 0.4 mg sublingual DIRECTED PRN 02/25/23 05/09/23 tablet (Nitrostat) Chest Pain nystatin 100,000 unit/gram topical 1 applic topical TID PRN NEEDED 02/25/23 05/09/23 powder doxycycline hyclate 100 mg capsule 100 mg PO BID 05/09/23 05/09/23 [id number] ac 400 1 tab PO QAM 05/09/23 05/09/23 mcg-calcium carb 500 mg-vit K1 20 mcg tablet (Women's 50 Plus Multivitamin) prednisone 20 mg tablet 40 mg PO DAILY 05/09/23 05/09/23 Previous Rx's Medication Instructions Recorded lactulose 20 gram/30 mL oral 30 g (45 mL) PO TID #1,200 mL 06/08/22 solution Results & Data (ED) Vital Signs Vital Signs - 24 hr 05/09/23 20:45 05/09/23 20:45 05/09/23 20:37 Temperature 37.2 C Temperature Source Oral Pulse Rate 92 H 92 H Pulse Rate [Apical] Pulse Rate from SpO2 Sensor Pulse Rhythm Regular Pulse Strength Normal Respiratory Rate 18 16 Respiratory Effort / Characteristics Spontaneous Labored Short of Breath Spontaneous Labored Short of Breath Non-Labored Spontaneous Respiratory Depth Normal Normal Normal Respiratory Pattern Regular Regular Regular Blood Pressure 89/64 L Blood Pressure Mean 72 Blood Pressure Position Semi-fowlers Pulse Oximetry 96 96 Oxygen Delivery Method CPAP CPAP Fraction of Inspired Oxygen 40 SaO2/FiO2 Ratio Sepsis Recent Fever Within 48 Hours No Sepsis New/Unexplained Change in Mental Status No Sepsis Action Taken by Nursing No Action Required 05/09/23 20:43 05/09/23 21:33 05/09/23 21:33 Temperature Temperature Source Pulse Rate 83 79 Pulse Rate [Apical] Pulse Rate from SpO2 Sensor Pulse Rhythm Regular Pulse Strength Respiratory Rate 18 Respiratory Effort / Characteristics Respiratory Depth Respiratory Pattern Blood Pressure Blood Pressure Mean Blood Pressure Position Pulse Oximetry 95 95 Oxygen Delivery Method CPAP CPAP Fraction of Inspired Oxygen 40 40 SaO2/FiO2 Ratio 237 Sepsis Recent Fever Within 48 Hours Sepsis New/Unexplained Change in Mental Status Sepsis Action Taken by Nursing 05/09/23 20:42 05/09/23 20:50 05/09/23 21:00 Temperature Temperature Source Pulse Rate 83 92 H Pulse Rate [Apical] Pulse Rate from SpO2 Sensor 93 H 91 H Pulse Rhythm Pulse Strength Respiratory Rate 21 19 Respiratory Effort / Characteristics Respiratory Depth Respiratory Pattern Blood Pressure 91/65 L Blood Pressure Mean 73 Blood Pressure Position Pulse Oximetry 94 95 Oxygen Delivery Method Fraction of Inspired Oxygen SaO2/FiO2 Ratio Sepsis Recent Fever Within 48 Hours Sepsis New/Unexplained Change in Mental Status Sepsis Action Taken by Nursing 05/09/23 21:00 05/09/23 21:27 05/09/23 21:30 Temperature Temperature Source Pulse Rate 82 Pulse Rate [Apical] Pulse Rate from SpO2 Sensor 84 81 Pulse Rhythm Pulse Strength Respiratory Rate 16 Respiratory Effort / Characteristics Respiratory Depth Respiratory Pattern Blood Pressure 96/57 L Blood Pressure Mean 70 Blood Pressure Position Pulse Oximetry 95 93 Oxygen Delivery Method Fraction of Inspired Oxygen SaO2/FiO2 Ratio Sepsis Recent Fever Within 48 Hours Sepsis New/Unexplained Change in Mental Status Sepsis Action Taken by Nursing 05/09/23 21:30 05/09/23 22:00 05/09/23 21:40 Temperature Temperature Source Pulse Rate 80 79 Pulse Rate [Apical] 79 Pulse Rate from SpO2 Sensor 80 79 Pulse Rhythm Pulse Strength Respiratory Rate 15 16 15 Respiratory Effort / Characteristics Spontaneous Respiratory Depth Respiratory Pattern Blood Pressure Blood Pressure Mean Blood Pressure Position Pulse Oximetry 95 96 95 Oxygen Delivery Method CPAP Fraction of Inspired Oxygen SaO2/FiO2 Ratio Sepsis Recent Fever Within 48 Hours Sepsis New/Unexplained Change in Mental Status Sepsis Action Taken by Nursing 05/09/23 21:50 05/09/23 22:00 05/09/23 22:00 Temperature Temperature Source Pulse Rate 73 81 Pulse Rate [Apical] Pulse Rate from SpO2 Sensor 80 81 Pulse Rhythm Pulse Strength Respiratory Rate 15 15 Respiratory Effort / Characteristics Respiratory Depth Respiratory Pattern Blood Pressure 103/72 Blood Pressure Mean 82 Blood Pressure Position Pulse Oximetry 94 96 Oxygen Delivery Method Fraction of Inspired Oxygen SaO2/FiO2 Ratio Sepsis Recent Fever Within 48 Hours Sepsis New/Unexplained Change in Mental Status Sepsis Action Taken by Nursing 05/09/23 23:14 05/09/23 23:30 05/09/23 23:56 Temperature Temperature Source Pulse Rate 75 77 76 Pulse Rate [Apical] Pulse Rate from SpO2 Sensor Pulse Rhythm Pulse Strength Respiratory Rate 16 18 21 Respiratory Effort / Characteristics Non-Labored Spontaneous Respiratory Depth Normal Respiratory Pattern Regular Blood Pressure 91/58 L 99/49 L Blood Pressure Mean 69 65 Blood Pressure Position Pulse Oximetry 95 93 94 Oxygen Delivery Method CPAP Fraction of Inspired Oxygen 40 40 SaO2/FiO2 Ratio Sepsis Recent Fever Within 48 Hours Sepsis New/Unexplained Change in Mental Status Sepsis Action Taken by Nursing 05/10/23 00:00 05/10/23 00:30 05/10/23 01:00 Temperature Temperature Source Pulse Rate 74 76 79 Pulse Rate [Apical] Pulse Rate from SpO2 Sensor Pulse Rhythm Pulse Strength Respiratory Rate 18 18 16 Respiratory Effort / Characteristics Respiratory Depth Respiratory Pattern Blood Pressure 107/62 111/67 110/74 Blood Pressure Mean 77 81 86 Blood Pressure Position Pulse Oximetry 94 96 93 Oxygen Delivery Method Fraction of Inspired Oxygen SaO2/FiO2 Ratio Sepsis Recent Fever Within 48 Hours Sepsis New/Unexplained Change in Mental Status Sepsis Action Taken by Nursing Laboratory Data Attestation: I reviewed the patient's lab results. 05/09/23 20:59 05/09/23 23:14 Lab Results 05/09/23 05/09/23 05/09/23 Range/Units 20:59 20:59 20:59 WBC 4.74 L (4.8-10.8) K/ul RBC 3.04 L (4.20-5.40) M/uL Hgb 11.0 L (12.0-16.0) g/dl Hct 35.5 L (37.0-47.0) % MCV 116.8 H (80.0-100.0) fL MCH 36.2 H (25.0-34.0) pg MCHC 31.0 L (32.0-36.0) g/dL RDW Std Deviation 77.7 H (36.4-46.3) fL RDW Coeff of Bradley 18.0 H (11.5-14.5) % Plt Count 69 L (130-400) K/uL MPV 12.9 H (9.4-12.4) fL Immature Gran % (Auto) 0.8 % Neut % (Auto) 73.7 % Lymph % (Auto) 12.7 % [place] % (Auto) 10.5 % Eos % (Auto) 1.5 % Baso % (Auto) 0.8 % Neut # (Auto) 3.49 (1.40-6.50) K/uL Lymph # (Auto) 0.60 L (1.20-3.40) K/uL [place] # (Auto) 0.50 (0.11-0.59) K/uL Eos # (Auto) 0.07 (0.00-0.50) K/uL Baso # (Auto) 0.04 (0.00-0.20) K/uL Immature Gran # (Auto) 0.04 (0.01-0.20) K/uL Tear Drop Cells 2+ Echinocytes 2+ PT 15.4 H (9.0-12.0) Seconds INR 1.4 H (0.9-1.1) ABG pH (7.35-7.45) ABG pCO2 (35-46) mmHg ABG pO2 (80-95) mmHg ABG HCO3 (19-24) mmol/L ABG O2 Saturation (90-95) % ABG Base Excess (-9-1.8) mEq/L Jorge Test (Pos) VBG pH (7.36-7.41) VBG pCO2 (38-50) mmHg VBG pO2 mmHg VBG HCO3 mmol/L VBG O2 Saturation % VBG Base Excess mEq/L Oxygen Given Sodium 137 (136-145) mmol/L Potassium 5.3 H (3.5-5.1) mmol/L Chloride 110 H (98-107) mmol/L Carbon Dioxide 18 L (21-32) mmol/L Anion Gap 9 (3-11) BUN 20 (6-23) mg/dl Creatinine 0.96 (0.6-1.2) mg/dl Est Cr Clr Drug Dosing 64.9 ml/min Est GFR ( Amer) 70.4 ml/min Est GFR (Non-Af Amer) 60.8 ml/min BUN/Creatinine Ratio 20.8 H (10-20) Glucose 162 H (70-99(Fasting)) mg/dl Lactate (0.4-2.0) mmol/L Calcium 9.0 (8.6-10.3) mg/dl Magnesium 1.9 (1.7-2.4) mg/dl Total Bilirubin 2.9 H (0.2-1.0) mg/dl Direct Bilirubin 1.2 H (0-0.2) mg/dl AST 90 H (13-39) U/L ALT 59 H (7-52) U/L Alkaline Phosphatase 115 H (34-104) U/L Troponin I High Sens 22.0 H (0-14) pg/ml Total Protein 6.0 (6.0-8.3) gm/dl Albumin 2.9 L (3.4-5.0) gm/dl Lipase 8 L (11-82) U/L Procalcitonin (0-0.5) ng/ml Urine Color Urine Appearance (Clear) Urine pH (4.5-7.5) Ur Specific [place] (1.000-1.030) Urine Protein (Negative) Urine Glucose (UA) (Negative) Urine Ketones (Negative) Urine Blood (Negative) Urine Nitrite (Negative) Urine Bilirubin (Negative) Urine Urobilinogen (Negative) Ur Leukocyte Esterase (Negative) Urine WBC (Auto) (0-5) /hpf Urine RBC (Auto) (0-4) /hpf U Hyaline Cast (Auto) (0-5) /lpf U Epithel Cells (Auto) (0-5) /lpf Urine Bacteria (Auto) (Negative) Urine Yeast Nasal Screen MRSA (PCR) (Negative) Adenovirus (PCR) (NotDetected) B. pertussis DNA (PCR) (NotDetected) B.parapertussis DNA PCR (NotDetected) C. pneumoniae DNA (PCR) (NotDetected) Coronavirus OC43 (PCR) (NotDetected) Coronavirus HKU1 (PCR) (NotDetected) Coronavirus 229E (PCR) (NotDetected) SARS-CoV-2 (PCR) (NotDetected) Coronavirus NL63 (PCR) (NotDetected) Human Metapneumovir PCR (NotDetected) Influenza Type A (PCR) (NotDetected) Influenza Type B (PCR) (NotDetected) M. pneumoniae (PCR) (NotDetected) Parainfluenza 1 (PCR) (NotDetected) Parainfluenza 2 (PCR) (NotDetected) Parainfluenza 3 (PCR) (NotDetected) Parainfluenza 4 (PCR) (NotDetected) RSV (PCR) (NotDetected) Entero/Rhino (PCR) (NotDetected) 05/09/23 05/09/23 05/09/23 Range/Units 20:59 20:59 20:59 WBC (4.8-10.8) K/ul RBC (4.20-5.40) M/uL Hgb (12.0-16.0) g/dl Hct (37.0-47.0) % MCV (80.0-100.0) fL MCH (25.0-34.0) pg MCHC (32.0-36.0) g/dL RDW Std Deviation (36.4-46.3) fL RDW Coeff of Bradley (11.5-14.5) % Plt Count (130-400) K/uL MPV (9.4-12.4) fL Immature Gran % (Auto) % Neut % (Auto) % Lymph % (Auto) % [place] % (Auto) % Eos % (Auto) % Baso % (Auto) % Neut # (Auto) (1.40-6.50) K/uL Lymph # (Auto) (1.20-3.40) K/uL [place] # (Auto) (0.11-0.59) K/uL Eos # (Auto) (0.00-0.50) K/uL Baso # (Auto) (0.00-0.20) K/uL Immature Gran # (Auto) (0.01-0.20) K/uL Tear Drop Cells Echinocytes PT (9.0-12.0) Seconds INR (0.9-1.1) ABG pH (7.35-7.45) ABG pCO2 (35-46) mmHg ABG pO2 (80-95) mmHg ABG HCO3 (19-24) mmol/L ABG O2 Saturation (90-95) % ABG Base Excess (-9-1.8) mEq/L Jorge Test (Pos) VBG pH (7.36-7.41) VBG pCO2 (38-50) mmHg VBG pO2 mmHg VBG HCO3 mmol/L VBG O2 Saturation % VBG Base Excess mEq/L Oxygen Given Sodium (136-145) mmol/L Potassium (3.5-5.1) mmol/L Chloride (98-107) mmol/L Carbon Dioxide (21-32) mmol/L Anion Gap (3-11) BUN (6-23) mg/dl Creatinine (0.6-1.2) mg/dl Est Cr Clr Drug Dosing ml/min Est GFR ( Amer) ml/min Est GFR (Non-Af Amer) ml/min BUN/Creatinine Ratio (10-20) Glucose (70-99(Fasting)) mg/dl Lactate 3.8 H* (0.4-2.0) mmol/L Calcium (8.6-10.3) mg/dl Magnesium (1.7-2.4) mg/dl Total Bilirubin (0.2-1.0) mg/dl Direct Bilirubin Cancelled (0-0.2) mg/dl AST (13-39) U/L ALT (7-52) U/L Alkaline Phosphatase (34-104) U/L Troponin I High Sens (0-14) pg/ml Total Protein (6.0-8.3) gm/dl Albumin (3.4-5.0) gm/dl Lipase Cancelled (11-82) U/L Procalcitonin 0.97 H (0-0.5) ng/ml Urine Color Urine Appearance (Clear) Urine pH (4.5-7.5) Ur Specific [place] (1.000-1.030) Urine Protein (Negative) Urine Glucose (UA) (Negative) Urine Ketones (Negative) Urine Blood (Negative) Urine Nitrite (Negative) Urine Bilirubin (Negative) Urine Urobilinogen (Negative) Ur Leukocyte Esterase (Negative) Urine WBC (Auto) (0-5) /hpf Urine RBC (Auto) (0-4) /hpf U Hyaline Cast (Auto) (0-5) /lpf U Epithel Cells (Auto) (0-5) /lpf Urine Bacteria (Auto) (Negative) Urine Yeast Nasal Screen MRSA (PCR) (Negative) Adenovirus (PCR) (NotDetected) B. pertussis DNA (PCR) (NotDetected) B.parapertussis DNA PCR (NotDetected) C. pneumoniae DNA (PCR) (NotDetected) Coronavirus OC43 (PCR) (NotDetected) Coronavirus HKU1 (PCR) (NotDetected) Coronavirus 229E (PCR) (NotDetected) SARS-CoV-2 (PCR) (NotDetected) Coronavirus NL63 (PCR) (NotDetected) Human Metapneumovir PCR (NotDetected) Influenza Type A (PCR) (NotDetected) Influenza Type B (PCR) (NotDetected) M. pneumoniae (PCR) (NotDetected) Parainfluenza 1 (PCR) (NotDetected) Parainfluenza 2 (PCR) (NotDetected) Parainfluenza 3 (PCR) (NotDetected) Parainfluenza 4 (PCR) (NotDetected) RSV (PCR) (NotDetected) Entero/Rhino (PCR) (NotDetected) 05/09/23 05/09/23 05/09/23 Range/Units 21:00 21:04 21:20 WBC (4.8-10.8) K/ul RBC (4.20-5.40) M/uL Hgb (12.0-16.0) g/dl Hct (37.0-47.0) % MCV (80.0-100.0) fL MCH (25.0-34.0) pg MCHC (32.0-36.0) g/dL RDW Std Deviation (36.4-46.3) fL RDW Coeff of Bradley (11.5-14.5) % Plt Count (130-400) K/uL MPV (9.4-12.4) fL Immature Gran % (Auto) % Neut % (Auto) % Lymph % (Auto) % [place] % (Auto) % Eos % (Auto) % Baso % (Auto) % Neut # (Auto) (1.40-6.50) K/uL Lymph # (Auto) (1.20-3.40) K/uL [place] # (Auto) (0.11-0.59) K/uL Eos # (Auto) (0.00-0.50) K/uL Baso # (Auto) (0.00-0.20) K/uL Immature Gran # (Auto) (0.01-0.20) K/uL Tear Drop Cells Echinocytes PT (9.0-12.0) Seconds INR (0.9-1.1) ABG pH (7.35-7.45) ABG pCO2 (35-46) mmHg ABG pO2 (80-95) mmHg ABG HCO3 (19-24) mmol/L ABG O2 Saturation (90-95) % ABG Base Excess (-9-1.8) mEq/L Jorge Test (Pos) VBG pH 7.28 L (7.36-7.41) VBG pCO2 40 (38-50) mmHg VBG pO2 71 mmHg VBG HCO3 19 mmol/L VBG O2 Saturation 93.5 % VBG Base Excess -7.5 mEq/L Oxygen Given Sodium (136-145) mmol/L Potassium (3.5-5.1) mmol/L Chloride (98-107) mmol/L Carbon Dioxide (21-32) mmol/L Anion Gap (3-11) BUN (6-23) mg/dl Creatinine (0.6-1.2) mg/dl Est Cr Clr Drug Dosing ml/min Est GFR ( Amer) ml/min Est GFR (Non-Af Amer) ml/min BUN/Creatinine Ratio (10-20) Glucose (70-99(Fasting)) mg/dl Lactate (0.4-2.0) mmol/L Calcium (8.6-10.3) mg/dl Magnesium (1.7-2.4) mg/dl Total Bilirubin (0.2-1.0) mg/dl Direct Bilirubin (0-0.2) mg/dl AST (13-39) U/L ALT (7-52) U/L Alkaline Phosphatase (34-104) U/L Troponin I High Sens (0-14) pg/ml Total Protein (6.0-8.3) gm/dl Albumin (3.4-5.0) gm/dl Lipase (11-82) U/L Procalcitonin (0-0.5) ng/ml Urine Color [place] Urine Appearance Cloudy A (Clear) Urine pH 5.5 (4.5-7.5) Ur Specific [place] 1.026 (1.000-1.030) Urine Protein 3+ H (Negative) Urine Glucose (UA) Negative (Negative) Urine Ketones Trace H (Negative) Urine Blood 3+ H (Negative) Urine Nitrite Positive A (Negative) Urine Bilirubin 1+ H (Negative) Urine Urobilinogen Negative (Negative) Ur Leukocyte Esterase 1+ H (Negative) Urine WBC (Auto) >30 H (0-5) /hpf Urine RBC (Auto) >30 H (0-4) /hpf U Hyaline Cast (Auto) 1-5 (0-5) /lpf U Epithel Cells (Auto) >30 H (0-5) /lpf Urine Bacteria (Auto) 3+ H (Negative) Urine Yeast Not Reportable Nasal Screen MRSA (PCR) (Negative) Adenovirus (PCR) Not Detected (NotDetected) B. pertussis DNA (PCR) Not Detected (NotDetected) B.parapertussis DNA PCR Not Detected (NotDetected) C. pneumoniae DNA (PCR) Not Detected (NotDetected) Coronavirus OC43 (PCR) Not Detected (NotDetected) Coronavirus HKU1 (PCR) Not Detected (NotDetected) Coronavirus 229E (PCR) Not Detected (NotDetected) SARS-CoV-2 (PCR) Not Detected (NotDetected) Coronavirus NL63 (PCR) Not Detected (NotDetected) Human Metapneumovir PCR Not Detected (NotDetected) Influenza Type A (PCR) Not Detected (NotDetected) Influenza Type B (PCR) Not Detected (NotDetected) M. pneumoniae (PCR) Not Detected (NotDetected) Parainfluenza 1 (PCR) Not Detected (NotDetected) Parainfluenza 2 (PCR) Not Detected (NotDetected) Parainfluenza 3 (PCR) Not Detected (NotDetected) Parainfluenza 4 (PCR) Not Detected (NotDetected) RSV (PCR) Not Detected (NotDetected) Entero/Rhino (PCR) Not Detected (NotDetected) 05/09/23 05/09/23 05/09/23 Range/Units 22:40 22:53 23:14 WBC (4.8-10.8) K/ul RBC (4.20-5.40) M/uL Hgb (12.0-16.0) g/dl Hct (37.0-47.0) % MCV (80.0-100.0) fL MCH (25.0-34.0) pg MCHC (32.0-36.0) g/dL RDW Std Deviation (36.4-46.3) fL RDW Coeff of Bradley (11.5-14.5) % Plt Count (130-400) K/uL MPV (9.4-12.4) fL Immature Gran % (Auto) % Neut % (Auto) % Lymph % (Auto) % [place] % (Auto) % Eos % (Auto) % Baso % (Auto) % Neut # (Auto) (1.40-6.50) K/uL Lymph # (Auto) (1.20-3.40) K/uL [place] # (Auto) (0.11-0.59) K/uL Eos # (Auto) (0.00-0.50) K/uL Baso # (Auto) (0.00-0.20) K/uL Immature Gran # (Auto) (0.01-0.20) K/uL Tear Drop Cells Echinocytes PT (9.0-12.0) Seconds INR (0.9-1.1) ABG pH (7.35-7.45) ABG pCO2 (35-46) mmHg ABG pO2 (80-95) mmHg ABG HCO3 (19-24) mmol/L ABG O2 Saturation (90-95) % ABG Base Excess (-9-1.8) mEq/L Jorge Test (Pos) VBG pH (7.36-7.41) VBG pCO2 (38-50) mmHg VBG pO2 mmHg VBG HCO3 mmol/L VBG O2 Saturation % VBG Base Excess mEq/L Oxygen Given Sodium (136-145) mmol/L Potassium 5.3 H (3.5-5.1) mmol/L Chloride (98-107) mmol/L Carbon Dioxide (21-32) mmol/L Anion Gap (3-11) BUN (6-23) mg/dl Creatinine (0.6-1.2) mg/dl Est Cr Clr Drug Dosing ml/min Est GFR ( Amer) ml/min Est GFR (Non-Af Amer) ml/min BUN/Creatinine Ratio (10-20) Glucose (70-99(Fasting)) mg/dl Lactate 3.7 H* (0.4-2.0) mmol/L Calcium (8.6-10.3) mg/dl Magnesium (1.7-2.4) mg/dl Total Bilirubin (0.2-1.0) mg/dl Direct Bilirubin (0-0.2) mg/dl AST (13-39) U/L ALT (7-52) U/L Alkaline Phosphatase (34-104) U/L Troponin I High Sens 37.0 H D (0-14) pg/ml Total Protein (6.0-8.3) gm/dl Albumin (3.4-5.0) gm/dl Lipase (11-82) U/L Procalcitonin (0-0.5) ng/ml Urine Color Urine Appearance (Clear) Urine pH (4.5-7.5) Ur Specific [place] (1.000-1.030) Urine Protein (Negative) Urine Glucose (UA) (Negative) Urine Ketones (Negative) Urine Blood (Negative) Urine Nitrite (Negative) Urine Bilirubin (Negative) Urine Urobilinogen (Negative) Ur Leukocyte Esterase (Negative) Urine WBC (Auto) (0-5) /hpf Urine RBC (Auto) (0-4) /hpf U Hyaline Cast (Auto) (0-5) /lpf U Epithel Cells (Auto) (0-5) /lpf Urine Bacteria (Auto) (Negative) Urine Yeast Nasal Screen MRSA (PCR) Positive A (Negative) Adenovirus (PCR) (NotDetected) B. pertussis DNA (PCR) (NotDetected) B.parapertussis DNA PCR (NotDetected) C. pneumoniae DNA (PCR) (NotDetected) Coronavirus OC43 (PCR) (NotDetected) Coronavirus HKU1 (PCR) (NotDetected) Coronavirus 229E (PCR) (NotDetected) SARS-CoV-2 (PCR) (NotDetected) Coronavirus NL63 (PCR) (NotDetected) Human Metapneumovir PCR (NotDetected) Influenza Type A (PCR) (NotDetected) Influenza Type B (PCR) (NotDetected) M. pneumoniae (PCR) (NotDetected) Parainfluenza 1 (PCR) (NotDetected) Parainfluenza 2 (PCR) (NotDetected) Parainfluenza 3 (PCR) (NotDetected) Parainfluenza 4 (PCR) (NotDetected) RSV (PCR) (NotDetected) Entero/Rhino (PCR) (NotDetected) 05/09/23 Range/Units 23:14 WBC (4.8-10.8) K/ul RBC (4.20-5.40) M/uL Hgb (12.0-16.0) g/dl Hct (37.0-47.0) % MCV (80.0-100.0) fL MCH (25.0-34.0) pg MCHC (32.0-36.0) g/dL RDW Std Deviation (36.4-46.3) fL RDW Coeff of Bradley (11.5-14.5) % Plt Count (130-400) K/uL MPV (9.4-12.4) fL Immature Gran % (Auto) % Neut % (Auto) % Lymph % (Auto) % [place] % (Auto) % Eos % (Auto) % Baso % (Auto) % Neut # (Auto) (1.40-6.50) K/uL Lymph # (Auto) (1.20-3.40) K/uL [place] # (Auto) (0.11-0.59) K/uL Eos # (Auto) (0.00-0.50) K/uL Baso # (Auto) (0.00-0.20) K/uL Immature Gran # (Auto) (0.01-0.20) K/uL Tear Drop Cells Echinocytes PT (9.0-12.0) Seconds INR (0.9-1.1) ABG pH 7.34 L (7.35-7.45) ABG pCO2 40 (35-46) mmHg ABG pO2 88 (80-95) mmHg ABG HCO3 22 (19-24) mmol/L ABG O2 Saturation 96.7 H (90-95) % ABG Base Excess -3.9 (-9-1.8) mEq/L Jorge Test Pos (Pos) VBG pH (7.36-7.41) VBG pCO2 (38-50) mmHg VBG pO2 mmHg VBG HCO3 mmol/L VBG O2 Saturation % VBG Base Excess mEq/L Oxygen Given CPAP 40% Sodium (136-145) mmol/L Potassium (3.5-5.1) mmol/L Chloride (98-107) mmol/L Carbon Dioxide (21-32) mmol/L Anion Gap (3-11) BUN (6-23) mg/dl Creatinine (0.6-1.2) mg/dl Est Cr Clr Drug Dosing ml/min Est GFR ( Amer) ml/min Est GFR (Non-Af Amer) ml/min BUN/Creatinine Ratio (10-20) Glucose (70-99(Fasting)) mg/dl Lactate (0.4-2.0) mmol/L Calcium (8.6-10.3) mg/dl Magnesium (1.7-2.4) mg/dl Total Bilirubin (0.2-1.0) mg/dl Direct Bilirubin (0-0.2) mg/dl AST (13-39) U/L ALT (7-52) U/L Alkaline Phosphatase (34-104) U/L Troponin I High Sens (0-14) pg/ml Total Protein (6.0-8.3) gm/dl Albumin (3.4-5.0) gm/dl Lipase (11-82) U/L Procalcitonin (0-0.5) ng/ml Urine Color Urine Appearance (Clear) Urine pH (4.5-7.5) Ur Specific [place] (1.000-1.030) Urine Protein (Negative) Urine Glucose (UA) (Negative) Urine Ketones (Negative) Urine Blood (Negative) Urine Nitrite (Negative) Urine Bilirubin (Negative) Urine Urobilinogen (Negative) Ur Leukocyte Esterase (Negative) Urine WBC (Auto) (0-5) /hpf Urine RBC (Auto) (0-4) /hpf U Hyaline Cast (Auto) (0-5) /lpf U Epithel Cells (Auto) (0-5) /lpf Urine Bacteria (Auto) (Negative) Urine Yeast Nasal Screen MRSA (PCR) (Negative) Adenovirus (PCR) (NotDetected) B. pertussis DNA (PCR) (NotDetected) B.parapertussis DNA PCR (NotDetected) C. pneumoniae DNA (PCR) (NotDetected) Coronavirus OC43 (PCR) (NotDetected) Coronavirus HKU1 (PCR) (NotDetected) Coronavirus 229E (PCR) (NotDetected) SARS-CoV-2 (PCR) (NotDetected) Coronavirus NL63 (PCR) (NotDetected) Human Metapneumovir PCR (NotDetected) Influenza Type A (PCR) (NotDetected) Influenza Type B (PCR) (NotDetected) M. pneumoniae (PCR) (NotDetected) Parainfluenza 1 (PCR) (NotDetected) Parainfluenza 2 (PCR) (NotDetected) Parainfluenza 3 (PCR) (NotDetected) Parainfluenza 4 (PCR) (NotDetected) RSV (PCR) (NotDetected) Entero/Rhino (PCR) (NotDetected) Administered Medications Sodium Chloride (Nss 1000ml) 1,000 mls @ 200 mls/hr IV .Q5H ONE Stop: 05/10/23 03:53 Last Admin: 05/09/23 23:30 Dose: 200 mls/hr Documented By: CANDE Doxycycline Hyclate 100 mg/ (Dextrose) 110 mls @ 50 mls/hr IV NOW STA Stop: 05/10/23 01:51 Last Admin: 05/09/23 23:55 Dose: 50 mls/hr Documented By: CANDE Discontinued Medications Albuterol (Albut/Ipratrop 3mg/0.5mg Neb 3 Ml Vial) 3 ml NEB NOW STA; Protocol Stop: 05/09/23 20:43 Last Admin: 05/09/23 22:00 Dose: 3 ml Documented By: DARREL Cefepime HCl (Maxipime) 2,000 mg in 20 mls @ 5 mls/min IV NOW STA; Protocol Stop: 05/09/23 20:45 Last Admin: 05/09/23 21:50 Dose: 5 mls/min Documented By: ARLEEN Sodium Chloride (Nss 1000ml) 1,000 mls @ 999 mls/hr IV .Q1H1M ONE Stop: 05/09/23 21:46 Last Infusion: 05/09/23 23:30 Dose: 0 mls/hr Documented By: Admin: 05/09/23 21:38 Dose: 999 mls/hr Documented By: ARLEEN Metronidazole (Flagyl) 500 mg in 100 mls @ 100 mls/hr IV NOW STA; Protocol Stop: 05/09/23 23:50 Last Admin: 05/09/23 23:20 Dose: Not Given Documented By: CANDE Ertapenem (Invanz) 10 mls @ 2 mls/min IV NOW STA Stop: 05/09/23 22:56 Last Admin: 05/09/23 23:12 Dose: 2 mls/min Documented By: CANDE Magnesium Sulfate/Dextrose (Magnesium Sulfate / D5w) 1 gm in 100 mls @ 50 mls/hr IV ONE ONE Stop: 05/10/23 00:56 Last Infusion: 05/10/23 01:23 Dose: 0 mls/hr Documented By: Admin: 05/09/23 23:18 Dose: 50 mls/hr Documented By: CANDE Methylprednisolone (Methylprednisolone 125 Mg/2 Ml Vial) 125 mg IV NOW STA Stop: 05/09/23 20:43 Last Admin: 05/09/23 21:46 Dose: 125 mg Documented By: ARLEEN Sodium Bicarbonate (Sodium Bicarb 8.4% Inj 50 Meq/50 Ml Syr) 50 meq IV NOW STA Stop: 05/09/23 22:56 Last Admin: 05/09/23 23:03 Dose: 50 meq Documented By: CANDE Imaging Data Radiologist's Impression: Chest X-Ray 05/09/23 20:42 SINGLE VIEW CHEST CLINICAL HISTORY: Sepsis. FINDINGS: An AP, portable, upright chest radiograph is compared to study dated 02/25/2023. The examination is degraded by portable technique and patient rotation. A right subclavian central venous infusion port is unchanged in position. The tip projects over the right atrium. The heart is enlarged. The pulmonary vasculature is noncongested. Chronic interstitial thickening similar to previous. There is bibasilar scarring/atelectasis. No airspace consolidation or large pleural effusion is identified. No pneumothorax is seen. The skeletal structures are osteopenic. The bony thorax is grossly intact. Degenerative change is noted in the shoulders and spine. IMPRESSION: Cardiomegaly with no active disease in the chest. ACT 112: Negative or not required by law. Electronically signed by: Selvin Barroso M.D. 05/09/2023 10:39 PM Discharge Plan Visit Data Chief Complaint: Respiratory Distress Stated Complaint: RESPIRATORY DISTRESS ED Provider: Chaim Ge Discharge Problem: Acute respiratory failure with hypoxia, Cirrhosis, Urinary tract infection, Aspiration into airway, Elevated troponin, Elevated lactic acid level Forms Stand Alone Forms: My LookIt Prescriptions Prescriptions: No Action oxybutynin chloride 5 mg tablet 5 mg PO BID levothyroxine 150 mcg tablet 150 mcg PO DAILYBB Trulicity 4.5 mg/0.5 mL pen injector 4.5 mg SUBCUT WK Rx Instructions: TAKE THIS MED EVERY MONDAY. fluticasone propion-salmeterol [Advair Diskus] 250-50 mcg/dose Blister With Device 1 inh INHALATION BID cetirizine [Zyrtec] 10 mg Tablet 5 mg PO DAILY benzonatate 200 mg capsule 200 mg PO TID PRN (Reason: Cough) nitroglycerin [Nitrostat] 0.4 mg Tablet, Sublingual 0.4 mg sublingual DIRECTED MDD 3 DOSES/15 MINUTES PRN (Reason: Chest Pain) docusate sodium 100 mg Capsule 100 mg PO DAILY nystatin 100,000 unit/gram Powder 1 applic TOPICAL TID PRN (Reason: NEEDED) Linzess 290 mcg capsule 290 mcg PO DAILYBB doxycycline hyclate 100 mg capsule 100 mg PO BID Rx Instructions: STARTED 05/08/23 FOR 10 DAYS. prednisone 20 mg tablet 40 mg PO DAILY Rx Instructions: STARTED 05/08/23 FOR 5 DAYS. Women's 50 Plus Multivitamin 400 mcg-500 mg calcium-20 mcg Tablet 1 tab PO QAM silver sulfadiazine 1 % Cream 1 applic TOPICAL DAILY atorvastatin 80 mg tablet 80 mg PO PM albuterol sulfate 2.5 mg /3 mL (0.083 %) Solution For Nebulization 2.5 mg INHALATION Q6H PRN (Reason: Wheezing) isosorbide mononitrate 30 mg tablet extended release 24 hr 30 mg PO DAILY potassium chloride 10 mEq tablet extended release 10 meq PO QAM Rx Instructions: TAKE WITH FOOD spironolactone 25 mg tablet 50 mg PO DAILY pantoprazole 20 mg tablet,delayed release (DR/EC) 40 mg PO BID Rx Instructions: TAKE TWO TABLETS TWICE DAILY gabapentin 300 mg capsule 600 mg PO QPM Rx Instructions: TAKE TWO CAPSULES IN THE EVENING. gabapentin 300 mg capsule 300 mg PO BID MDD 6 CAP Rx Instructions: Take 1 tab in am & mid day. May take extra dose in AM & MID DAY PRN. Total of 6 a day max. aspirin 81 mg tablet,chewable 81 mg PO DAILY furosemide 20 mg tablet 20 mg PO DAILY insulin aspart U-100 [Novolog FlexPen U-100 Insulin] 100 unit/mL (3 mL) insulin pen See Rx Instructions .ROUTE .COMPLEX Rx Instructions: 35 UNITS @ BREAKFAST, 45 UNITS @ BEFORE LUNCH, 82 UNITS BEFORE SUPPER insulin glargine [Lantus Solostar U-100 Insulin] 100 unit/mL (3 mL) insulin pen 46 unit SUBCUT DAILY trazodone 50 mg tablet 50 mg PO HS lidocaine-prilocaine 2.5-2.5 % Cream 1 applic topical DIRECTED PRN (Reason: MEDI-PORT) Rx Instructions: APPLY WHEN ACCESSING PORT; APPLY TO SKIN OVER MEDIPORT AND COVER OND HOUR PRIOR TO ACCESSING. nadolol 40 mg tablet 40 mg PO DAILY fluticasone propionate [Flonase Allergy Relief] 50 mcg/actuation Barton,Collins spension 2 spray INTRANASAL DAILY Rx Instructions: administer into each nostril escitalopram oxalate 20 mg tablet 20 mg PO DAILY metformin 500 mg tablet extended release 24 hr 500 mg PO DAILY Rx Instructions: TAKE WITH A MEAL lactulose 20 gram/30 mL Solution 30 g PO TID Qty: 1200 0RF Rx Instructions: TAKES 45 ML TID. Referrals Referrals: Vanita Dunn MD [Primary Care Provider] -
[2023-05-09 21:11] LABS: Base Excess VBG -7.5 mEq/L; HCO3 VBG 19 mmol/L; Oxygen Saturation VBG 93.5 %; PCO2 VBG 40 mmHg (38-50); PO2 VBG 71 mmHg; pH VBG 7.28 (7.36-7.41)
[2023-05-09 21:28] LABS: INR 1.4 (0.9-1.1); Prothrombin Time 15.4 Seconds (9.0-12.0)
[2023-05-09 21:34] LABS: Albumin Level 2.9 gm/dl (3.4-5.0); Bilirubin Direct 1.2 mg/dl (0-0.2); Bilirubin,Total 2.9 mg/dl (0.2-1.0); Magnesium 1.9 mg/dl (1.7-2.4); Potassium 5.3 mmol/L (3.5-5.1)
[2023-05-09 21:40] LABS: BUN Creatinine Ratio 20.8 (10-20); Creatinine Clr Calc Pharmacy 64.9 ml/min; Est GFR (African American) 70.4 ml/min; Est GFR (Non-African American) 60.8 ml/min
[2023-05-09 22:02] LABS: Appearance Urine Cloudy (Clear); Bacteria Urine Automated 3+ (Negative); Blood Urine 3+ (Negative); Color Urine Orange; Epithelial Cell Urine Auto >30 /lpf (0-5); Glucose Urine UA Negative (Negative); Ketones Urine Trace (Negative); Leukocyte Esterase Urine 1+ (Negative); Nitrite Urine Positive (Negative); Protein Urine 3+ (Negative); Specific Gravity Urine 1.026 (1.000-1.030); Urobilinogen Urine Negative (Negative); WBC Urine Automated >30 /hpf (0-5); pH Urine 5.5 (4.5-7.5)
[2023-05-09 22:03] LABS: Bilirubin Urine 1+ (Negative)
[2023-05-09 22:10] LABS: Adenovirus PCR Not Detected (NotDetected); Bordetella parapertussis PCR Not Detected (NotDetected); Bordetella pertussis PCR Not Detected (NotDetected); Chlamydia pneumoniae PCR Not Detected (NotDetected); Coronavirus 229E PCR Not Detected (NotDetected); Coronavirus CoV-2 (COVID19)PCR Not Detected (NotDetected); Coronavirus HKU1 PCR Not Detected (NotDetected); Coronavirus NL63 PCR Not Detected (NotDetected); Coronavirus OC43PCR Not Detected (NotDetected); Human Metapneumovirus PCR Not Detected (NotDetected); Influenza A PCR Not Detected (NotDetected); Influenza B PCR Not Detected (NotDetected); Mycoplasma pneumoniae PCR Not Detected (NotDetected); Parainfluenza Virus 1 PCR Not Detected (NotDetected); Parainfluenza Virus 2 PCR Not Detected (NotDetected); Parainfluenza Virus 3 PCR Not Detected (NotDetected); Parainfluenza Virus 4 PCR Not Detected (NotDetected); Respiratory Syncytial VirusPCR Not Detected (NotDetected); Rhinovirus/Enterovirus PCR Not Detected (NotDetected)
[2023-05-09 22:18] LABS: RBC Urine Automated >30 /hpf (0-4)
[2023-05-09 22:35] LABS: Hematocrit (blood only) 35.5 % (37.0-47.0); Mean Corpuscular Hemoglobin 36.2 pg (25.0-34.0); Mean Corpuscular Volume 116.8 fL (80.0-100.0); Mean Platelet Volume 12.9 fL (9.4-12.4); Platelet Count 69 K/uL (130-400); RDW Standard Deviation 77.7 fL (36.4-46.3); Red Blood Count 3.04 M/uL (4.20-5.40); White Blood Count 4.74 K/ul (4.8-10.8)
[2023-05-09 22:37] LABS: Basophils # (auto) 0.04 K/uL (0.00-0.20); Basophils % (auto) 0.8 %; Echinocytes 2+; Eosinophils # (auto) 0.07 K/uL (0.00-0.50); Eosinophils % (auto) 1.5 %; Immature Granulocytes # (auto) 0.04 K/uL (0.01-0.20); Immature Granulocytes % (auto) 0.8 %; Lymphocytes % (auto) 12.7 %; Monocytes % (auto) 10.5 %; Neutrophils # (auto) 3.49 K/uL (1.40-6.50); Neutrophils % (auto) 73.7 %; Tear Drop Cells 2+
--- NOTE | 2023-05-09 22:40 | XRay Report ---
SINGLE VIEW CHEST CLINICAL HISTORY: Sepsis. FINDINGS: An AP, portable, upright chest radiograph is compared to study dated 02/25/2023. The examina tion is degraded by portable technique and patient rotation. A right subclavian central venous infusi on port is unchanged in position. The tip projects over the right atrium. The heart is enlarged. The pulmonary vasculature is noncongested. Chronic interstitial thickening similar to previous. There is bibasilar scarring/atelectasis. No airspace consolidation or large pleural effusion is identified. No pneumothorax is seen. The skeletal structures are osteopenic. The bony thorax is grossly intact. Deg enerative change is noted in the shoulders and spine. IMPRESSION: Cardiomegaly with no active disease in the chest. ACT 112: Negative or not required by law. Electronically signed by: Selvin Barroso M.D. 05/09/2023 10:39 PM
[2023-05-09] MEDS ORDERED: metroNIDAZOLE 500 MG/100 ML BAG IV STA (22:51)
[2023-05-09] MEDS ORDERED: ERTAPENEM SODIUM 10 ML IV STA (22:52)
[2023-05-09] MEDS ORDERED: SODIUM BICARB 8.4% INJ 50 MEQ/50 ML SYR IV STA (22:55)
[2023-05-09] MEDS ORDERED: MAGNESIUM SULFATE / D5W 1 GM/100 ML BAG IV ONE (22:57)
[2023-05-09 23:18] LABS: Base Excess ABG -3.9 mEq/L (-9-1.8); HCO3 ABG 22 mmol/L (19-24); Oxygen Saturation ABG 96.7 % (90-95); PCO2 ABG 40 mmHg (35-46); PO2 ABG 88 mmHg (80-95); pH ABG 7.34 (7.35-7.45)
[2023-05-09 23:30] LABS: Allen Test Pos (Pos)
[2023-05-09] MEDS ORDERED: DOXYCYCLINE HYCLATE 100 MG in DEXTROSE 5% 100 ML IV STA (23:40)
[2023-05-09 23:44] LABS: Potassium 5.3 mmol/L (3.5-5.1)
--- NOTE | 2023-05-09 23:48 | History & Physical Report ---
Date of Service May 09, 2023 Assessment & Plan (1) Acute hypoxemic respiratory failure: Plan: Secondary to asthma/restrictive lung disease exacerbation secondary to aspiration pneumonitis/complicated bronchitis, possible sepsis Complicated UTI, past history ESBL organism lactic acidosis secondary to illness Hyperkalemia secondary to illness, home medications contributory Encephalopathy secondary to illness, home neuropsychotropic meds contributory HTN, BP on the lower side mood disorder, at baseline hx fibromyalgia hyperlipidemia, on statin Rx hx NAFLD cirrhosis,patient with some intra-abdominal third spacing on CT DM2 insulin requiring, well-controlled as of recent hemoglobin A1c of 6.17 October 2022 chronic pancytopenia secondary to cirrhosis, hemoglobin at baseline hx cerebral palsy as per records hypothyroidism, euthyroid as of recent TSH PCU Continue CPAP Doxycycline, Ertapenem for complicated bronchitis/possible aspiration pneumonitis causing asthma/RLD exacerbation Nebs RTC, prednisone course Aspiration precautions, swallow eval Pulmonary consult if without improvement Ertapenem for complicated UTI given history ESBL Follow lactic acid response to IVF Hold BP meds and home diuretics until BP stable Bicarb 1 dose now for hyperkalemia given metabolic acidosis Appropriate hold spironolactone and supplemental potassium for now given hyperkalemia Hold neuropsychotropic medications until mentation improved basal bolus insulin, ISS BG goal [id number], carb count coverage DVT prophylaxis. SCDs RE thrombocytopenia Full code Patient requesting updates from providers. Mr. Syed Bustos, contact numbers [phone]. Total critical care time was 40 minutes. Text document was generated using Slack voice recognition software. It may contain grammatical or spelling errors. Kindly contact undersigned for clarification of any documentation item in question. History of Present Illness Chief Complaint: Worsening cough, shortness of breath Primary Care Provider: Vanita Dunn MD History obtained from patient, family, and records. Limited history from patient secondary to CPAP. Medical history significant for asthma/restrictive lung disease as per records, mood disorder, fibromyalgia, hypertension, hyperlipidemia, NAFLD cirrhosis, THAD on BiPAP, DM2 insulin requiring, chronic pancytopenia (baseline hemoglobin 10-11), cerebral palsy as per records, hypothyroidism, history of MRSA, hx ESBL UTI. Recent confinement October 2022 for UTI. Patient noted to have junky cough symptoms for about a week. Not sure about sick contacts because she had a recent birthday alliance party. Coughing occasional choking with swallowing. No headache, no chest pain. Achy left-sided abdominal pain with hematuria symptoms as per . Some emesis. Outpatient prednisone and doxycycline course recommended by outpatient provider yesterday. Patient yet to start prescription. Patient noted to be somewhat confused and weak today as per . Worsening respiratory distress at home. O2 sats 60s on room air. Patient coughing out yellow-green sputum. CPAP initiated. Patient brought to the ER for evaluation. IV cefepime, Solu-Medrol, neb treatment administered at the ER. MEDICAL HISTORY: As above. SURGICAL HISTORY: She has had dental surgery, gynecologic section, hip surgery, and tendon repair. FAMILY HISTORY: Heart disease. Diabetes PERSONAL AND SOCIAL HISTORY: Nonsmoker. No chronic intake of alcoholic beverages, disabled. Allergies Allergy/AdvReac Type Severity Reaction Status Date / Time adhesive tape Allergy Intermediate ITCHING Verified 05/09/23 21:28 Penicillins Allergy Intermediate Rash Verified 05/09/23 21:28 perflutren AdvReac Intermediate LOWER BACK Verified 05/09/23 21:28 PAIN Home Medications Medication Instructions Recorded Confirmed Type albuterol sulfate 2.5 mg/3 mL 2.5 mg inhalation Q6H PRN Wheezing 04/30/22 05/09/23 History (0.083 %) solution for nebulization aspirin 81 mg chewable tablet 81 mg PO DAILY 04/30/22 05/09/23 History atorvastatin 80 mg tablet 80 mg PO PM 04/30/22 05/09/23 History escitalopram oxalate 20 mg tablet 20 mg PO DAILY 04/30/22 05/09/23 History fluticasone propionate 50 2 spray intranasal DAILY 04/30/22 05/09/23 History mcg/actuation nasal spray,suspension (Flonase Allergy Relief) furosemide 20 mg tablet 20 mg PO DAILY 04/30/22 05/09/23 History gabapentin 300 mg capsule 300 mg PO BID 04/30/22 05/09/23 History gabapentin 300 mg capsule 600 mg PO QPM 04/30/22 05/09/23 History insulin aspart U-100 100 unit/mL See Rx Instructions .Route .COMPLEX 04/30/22 05/09/23 History (3 mL) subcutaneous pen (Novolog FlexPen U-100 Insulin aspart) insulin glargine 100 unit/mL (3 46 unit subcut DAILY 04/30/22 05/09/23 History mL) subcutaneous pen (Lantus Solostar U-100 Insulin) isosorbide mononitrate 30 mg 30 mg PO DAILY 04/30/22 05/09/23 History tablet,extended release 24 hr lidocaine-prilocaine 2.5 %-2.5 % 1 applic topical DIRECTED PRN 04/30/22 05/09/23 History topical cream MEDI-PORT nadolol 40 mg tablet 40 mg PO DAILY 04/30/22 05/09/23 History pantoprazole 20 mg tablet,delayed 40 mg PO BID 04/30/22 05/09/23 History release potassium chloride 10 mEq 10 meq PO QAM 04/30/22 05/09/23 History tablet,extended release silver sulfadiazine 1 % topical 1 applic topical DAILY apply to 04/30/22 05/09/23 History cream wound spironolactone 25 mg tablet 50 mg PO DAILY 04/30/22 05/09/23 History trazodone 50 mg tablet 50 mg PO HS 04/30/22 05/09/23 History metformin 500 mg tablet,extended 500 mg PO DAILY 06/04/22 05/09/23 History release 24 hr lactulose 20 gram/30 mL oral 30 g (45 mL) PO TID #1,200 mL 06/08/22 05/09/23 Rx solution dulaglutide 4.5 mg/0.5 mL 4.5 mg subcut WK 09/21/22 05/09/23 History subcutaneous pen injector (Trulicity) levothyroxine 150 mcg tablet 150 mcg PO DAILYBB 09/21/22 05/09/23 History oxybutynin chloride 5 mg tablet 5 mg PO BID 09/21/22 05/09/23 History benzonatate 200 mg capsule 200 mg PO TID PRN Cough 02/25/23 05/09/23 History cetirizine 10 mg tablet (Zyrtec) 5 mg PO DAILY 02/25/23 05/09/23 History docusate sodium 100 mg capsule 100 mg PO DAILY 02/25/23 05/09/23 History fluticasone 250 mcg-salmeterol 50 1 inh inhalation BID 02/25/23 05/09/23 History mcg/dose blistr powdr for inhalation (Advair Diskus) linaclotide 290 mcg capsule 290 mcg PO DAILYBB 02/25/23 05/09/23 History (Linzess) nitroglycerin 0.4 mg sublingual 0.4 mg sublingual DIRECTED PRN 02/25/23 05/09/23 History tablet (Nitrostat) Chest Pain nystatin 100,000 unit/gram topical 1 applic topical TID PRN NEEDED 02/25/23 05/09/23 History powder doxycycline hyclate 100 mg capsule 100 mg PO BID 05/09/23 05/09/23 History pyjjjqsr-bqq-ajfru ac 400 1 tab PO QAM 05/09/23 05/09/23 History mcg-calcium carb 500 mg-vit K1 20 mcg tablet (Women's 50 Plus Multivitamin) prednisone 20 mg tablet 40 mg PO DAILY 05/09/23 05/09/23 History Past Med/Surg History Medical History Ambulatory dysfunction Asthma DOES NOT USE INH. REPORTS USING NEB TREATMENTS BID. Bilateral lower extremity edema Cardiac murmur does not follow w/ cardio; echo 11/2017 [facility] Cerebral palsy Chronic back pain Chronic pain Dark stools Diplopia reports intermittent x 1-2 weeks. pt reports PCP aware and scheduled for brain MRI 03/11 at [facility]. 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 Major depressive disorder, recurrent, moderate Morbid obesity with BMI of 50.0-59.9, adult Obstructive sleep apnea CPAP + OXYGEN AT 2 LPM @ NIGHT On home oxygen therapy 2 LPM @ NIGHT + CPAP Osteoarthritis Pancreatic cyst Poor historian SOB (shortness of breath) on exertion Venous insufficiency Wheelchair bound Surgical History H/O wisdom tooth extraction History of Achilles tendon repair History of section History of colonoscopy History of dilatation and curettage History of esophagogastroduodenoscopy (EGD) EUS 02/22/2019 [facility] History of hip surgery History of strabismus surgery History of tooth extraction Family History Father Family history of diabetes mellitus Myocardial infarction, Onset Age: 61 Mother Myocardial infarction, Onset Age: 72 Sister Myocardial infarction Social History Smoking Status: Never smoker Second Hand Exposure: No; Do You Dip or Chew Tobacco: No; Tobacco Cessation Education Requested by Patient: No Hx Alcohol Use: No Hx Substance Use: No Preferred Language: Cantonese Syriac Communication Ability: Impaired Communication Ability Comment: Cerberal Palsy Seasonal Customer Service Associate Required: No Beliefs That Will Affect Care: None marital status: Current Living Situation: Spouse Current Living Situation Comment: Reports home health assists 5 times a week Other Information That Helps Us Care for You: No Feels Safe at Home: Yes Safety Concerns: Feels Safe At This Time Assistive Devices: Oxygen - Continuous and Wheelchair Review of Systems Review of Systems: Could not be reliably obtained secondary to CPAP Physical Exam Physical Exam: GENERAL: comfortable, obese, no respiratory distress, CPAP in place SKIN: Pallor, warm HEENT: Pale palpebral conjunctivae, no ptosis, dry buccal mucosa NECK : Supple, short neck, no tenderness CHEST : Decreased breath sounds , no tenderness HEART : RRR, no obvious murmurs ABDOMEN: Marked distention, central abdominal tenderness EXTREMITIES : Bilateral LE swelling, no LE tenderness, no other conspicuous deformities noted NEUROLOGIC : Coherent, no facial asymmetry, gait and stance not assessed Results & Data Results & Data Vital Signs (Past 12 Hours) Vital Signs Temp Pulse Pulse Resp BP Pulse Ox O2 Del Method 05/09/23 23:14 75 16 91/58 L 95 05/09/23 22:00 81 15 96 05/09/23 22:00 103/72 05/09/23 21:50 73 15 94 05/09/23 21:40 79 15 95 05/09/23 22:00 79 16 96 CPAP 05/09/23 21:30 80 15 95 05/09/23 21:30 96/57 L 05/09/23 21:27 93 05/09/23 21:00 82 16 95 05/09/23 21:00 91/65 L 05/09/23 20:50 92 H 19 95 05/09/23 20:42 83 21 94 05/09/23 21:33 79 18 95 CPAP 05/09/23 21:33 95 CPAP 05/09/23 20:43 83 05/09/23 20:37 92 H 16 96 05/09/23 20:45 CPAP 05/09/23 20:45 37.2 C 92 H 18 89/64 L 96 CPAP FiO2 05/09/23 23:14 05/09/23 22:00 05/09/23 22:00 05/09/23 21:50 05/09/23 21:40 05/09/23 22:00 05/09/23 21:30 05/09/23 21:30 05/09/23 21:27 05/09/23 21:00 05/09/23 21:00 05/09/23 20:50 05/09/23 20:42 05/09/23 21:33 40 05/09/23 21:33 40 05/09/23 20:43 05/09/23 20:37 40 05/09/23 20:45 05/09/23 20:45 Laboratory Results Laboratory Results WBC 4.74 K/ul (4.8-10.8) L 05/09/23 20:59 RBC 3.04 M/uL (4.20-5.40) L 05/09/23 20:59 Hgb 11.0 g/dl (12.0-16.0) L 05/09/23 20:59 Hct 35.5 % (37.0-47.0) L 05/09/23 20:59 MCV 116.8 fL (80.0-100.0) H 05/09/23 20:59 MCH 36.2 pg (25.0-34.0) H 05/09/23 20:59 MCHC 31.0 g/dL (32.0-36.0) L 05/09/23 20:59 RDW Std Deviation 77.7 fL (36.4-46.3) H 05/09/23 20:59 RDW Coeff of Bradley 18.0 % (11.5-14.5) H 05/09/23 20:59 Plt Count 69 K/uL (130-400) L 05/09/23 20:59 MPV 12.9 fL (9.4-12.4) H 05/09/23 20:59 Immature Gran % (Auto) 0.8 % 05/09/23 20:59 Neut % (Auto) 73.7 % 05/09/23 20:59 Lymph % (Auto) 12.7 % 05/09/23 20:59 Bond % (Auto) 10.5 % 05/09/23 20:59 Eos % (Auto) 1.5 % 05/09/23 20:59 Baso % (Auto) 0.8 % 05/09/23 20:59 Neut # (Auto) 3.49 K/uL (1.40-6.50) 05/09/23 20:59 Lymph # (Auto) 0.60 K/uL (1.20-3.40) L 05/09/23 20:59 Bond # (Auto) 0.50 K/uL (0.11-0.59) 05/09/23 20:59 Eos # (Auto) 0.07 K/uL (0.00-0.50) 05/09/23 20:59 Baso # (Auto) 0.04 K/uL (0.00-0.20) 05/09/23 20:59 Immature Gran # (Auto) 0.04 K/uL (0.01-0.20) 05/09/23 20:59 Tear Drop Cells 2+ 05/09/23 20:59 Echinocytes 2+ 05/09/23 20:59 PT 15.4 Seconds (9.0-12.0) H 05/09/23 20:59 INR 1.4 (0.9-1.1) H 05/09/23 20:59 ABG pH 7.34 (7.35-7.45) L 05/09/23 23:14 ABG pCO2 40 mmHg (35-46) 05/09/23 23:14 ABG pO2 88 mmHg (80-95) 05/09/23 23:14 ABG HCO3 22 mmol/L (19-24) 05/09/23 23:14 ABG O2 Saturation 96.7 % (90-95) H 05/09/23 23:14 ABG Base Excess -3.9 mEq/L (-9-1.8) 05/09/23 23:14 Jorge Test Pos (Pos) 05/09/23 23:14 VBG pH 7.28 (7.36-7.41) L 05/09/23 21:04 VBG pCO2 40 mmHg (38-50) 05/09/23 21:04 VBG pO2 71 mmHg 05/09/23 21:04 VBG HCO3 19 mmol/L 05/09/23 21:04 VBG O2 Saturation 93.5 % 05/09/23 21:04 VBG Base Excess -7.5 mEq/L 05/09/23 21:04 Oxygen Given CPAP 40% 05/09/23 23:14 Sodium 137 mmol/L (136-145) 05/09/23 20:59 Potassium 5.3 mmol/L (3.5-5.1) H 05/09/23 23:14 Chloride 110 mmol/L (98-107) H 05/09/23 20:59 Carbon Dioxide 18 mmol/L (21-32) L 05/09/23 20:59 Anion Gap 9 (3-11) 05/09/23 20:59 BUN 20 mg/dl (6-23) 05/09/23 20:59 Creatinine 0.96 mg/dl (0.6-1.2) 05/09/23 20:59 Est Cr Clr Drug Dosing 64.9 ml/min 05/09/23 20:59 Est GFR ( Amer) 70.4 ml/min 05/09/23 20:59 Est GFR (Non-Af Amer) 60.8 ml/min 05/09/23 20:59 BUN/Creatinine Ratio 20.8 (10-20) H 05/09/23 20:59 Glucose 162 mg/dl (70-99(Fasting)) H 05/09/23 20:59 Lactate 3.7 mmol/L (0.4-2.0) H* 05/09/23 22:53 Calcium 9.0 mg/dl (8.6-10.3) 05/09/23 20:59 Magnesium 1.9 mg/dl (1.7-2.4) 05/09/23 20:59 Total Bilirubin 2.9 mg/dl (0.2-1.0) H 05/09/23 20:59 Direct Bilirubin 1.2 mg/dl (0-0.2) H 05/09/23 20:59 Direct Bilirubin Cancelled 05/09/23 20:59 AST 90 U/L (13-39) H 05/09/23 20:59 ALT 59 U/L (7-52) H 05/09/23 20:59 Alkaline Phosphatase 115 U/L (34-104) H 05/09/23 20:59 Troponin I High Sens 22.0 pg/ml (0-14) H 05/09/23 20:59 Total Protein 6.0 gm/dl (6.0-8.3) 05/09/23 20:59 Albumin 2.9 gm/dl (3.4-5.0) L 05/09/23 20:59 Lipase 8 U/L (11-82) L 05/09/23 20:59 Lipase Cancelled 05/09/23 20:59 Procalcitonin 0.97 ng/ml (0-0.5) H 05/09/23 20:59 Urine Color [place] 05/09/23 21:20 Urine Appearance Cloudy (Clear) A 05/09/23 21:20 Urine pH 5.5 (4.5-7.5) 05/09/23 21:20 Ur Specific [place] 1.026 (1.000-1.030) 05/09/23 21:20 Urine Protein 3+ (Negative) H 05/09/23 21:20 Urine Glucose (UA) Negative (Negative) 05/09/23 21:20 Urine Ketones Trace (Negative) H 05/09/23 21:20 Urine Blood 3+ (Negative) H 05/09/23 21:20 Urine Nitrite Positive (Negative) A 05/09/23 21:20 Urine Bilirubin 1+ (Negative) H 05/09/23 21:20 Urine Urobilinogen Negative (Negative) 05/09/23 21:20 Ur Leukocyte Esterase 1+ (Negative) H 05/09/23 21:20 Urine WBC (Auto) >30 /hpf (0-5) H 05/09/23 21:20 Urine RBC (Auto) >30 /hpf (0-4) H 05/09/23 21:20 U Hyaline Cast (Auto) 1-5 /lpf (0-5) 05/09/23 21:20 U Epithel Cells (Auto) >30 /lpf (0-5) H 05/09/23 21:20 Urine Bacteria (Auto) 3+ (Negative) H 05/09/23 21:20 Urine Yeast Not Reportable 05/09/23 21:20 Nasal Screen MRSA (PCR) Positive (Negative) A 05/09/23 22:40 Adenovirus (PCR) Not Detected (NotDetected) 05/09/23 21:00 B. pertussis DNA (PCR) Not Detected (NotDetected) 05/09/23 21:00 B.parapertussis DNA PCR Not Detected (NotDetected) 05/09/23 21:00 C. pneumoniae DNA (PCR) Not Detected (NotDetected) 05/09/23 21:00 Coronavirus OC43 (PCR) Not Detected (NotDetected) 05/09/23 21:00 Coronavirus HKU1 (PCR) Not Detected (NotDetected) 05/09/23 21:00 Coronavirus 229E (PCR) Not Detected (NotDetected) 05/09/23 21:00 SARS-CoV-2 (PCR) Not Detected (NotDetected) 05/09/23 21:00 Coronavirus NL63 (PCR) Not Detected (NotDetected) 05/09/23 21:00 Human Metapneumovir PCR Not Detected (NotDetected) 05/09/23 21:00 Influenza Type A (PCR) Not Detected (NotDetected) 05/09/23 21:00 Influenza Type B (PCR) Not Detected (NotDetected) 05/09/23 21:00 M. pneumoniae (PCR) Not Detected (NotDetected) 05/09/23 21:00 Parainfluenza 1 (PCR) Not Detected (NotDetected) 05/09/23 21:00 Parainfluenza 2 (PCR) Not Detected (NotDetected) 05/09/23 21:00 Parainfluenza 3 (PCR) Not Detected (NotDetected) 05/09/23 21:00 Parainfluenza 4 (PCR) Not Detected (NotDetected) 05/09/23 21:00 RSV (PCR) Not Detected (NotDetected) 05/09/23 21:00 Entero/Rhino (PCR) Not Detected (NotDetected) 05/09/23 21:00 Impressions Chest X-Ray 05/09/23 20:42 SINGLE VIEW CHEST CLINICAL HISTORY: Sepsis. FINDINGS: An AP, portable, upright chest radiograph is compared to study dated 02/25/2023. The examination is degraded by portable technique and patient rotation. A right subclavian central venous infusion port is unchanged in position. The tip projects over the right atrium. The heart is enlarged. The pulmonary vasculature is noncongested. Chronic interstitial thickening similar to previous. There is bibasilar scarring/atelectasis. No airspace consolidation or large pleural effusion is identified. No pneumothorax is seen. The skeletal structures are osteopenic. The bony thorax is grossly intact. Degenerative change is noted in the shoulders and spine. IMPRESSION: Cardiomegaly with no active disease in the chest. ACT 112: Negative or not required by law. Electronically signed by: Selvin Barroso M.D. 05/09/2023 10:[address] head: No acute intracranial hemorrhage, no evidence of acute territorial infarction or other acute intracranial disease process. CT abdomen pelvis: 1. No evidence of obstructive renal calculi or signs of collecting system dilatation. Nonobstructive calculi noted within the kidneys, the largest within the interpolar left kidney measuring up to 6 mm. 2. Small foci of gas noted within the left renal collecting system. Findings may be due to sequelae of ascending urinary tract infection. Consider correlation with laboratory values. 3. Cline within the bladder with gas the bladder dome. This may be due to Cline placement. Cystitis also possible. 4. Cirrhotic morphology of the liver with sequela of portal hypertension including moderate mesenteric ascites and esophageal, gastric, and splenic varices. Additional splenomegaly noted. 5. Moderate volume of abdominal and pelvic ascites. Diagnostic Findings EKG as per my interpretation : Rate 90, NSR, LAD, LSB, 1 AVB, no ischemia, low voltage
[2023-05-09] MEDS ORDERED: PROMETHAZINE HCL 12.5 MG in SODIUM CHLORIDE 0.9% 50 ML IV PRN (23:55)
[2023-05-10 02:34] LABS: Albumin Globulin Ratio 0.8 (0.9-2); Albumin Level 2.6 gm/dl (3.4-5.0); BUN Creatinine Ratio 24.2 (10-20); Bilirubin,Total 2.7 mg/dl (0.2-1.0); Calcium 8.3 mg/dl (8.6-10.3); Creatinine Clr Calc Pharmacy 65.6 ml/min; Est GFR (African American) 71.3 ml/min; Est GFR (Non-African American) 61.5 ml/min; Globulin 3.2 gm/dl (2.5-4.0); Total Protein 5.8 gm/dl (6.0-8.3)
[2023-05-10 02:37] LABS: Hematocrit (blood only) 30.8 % (37.0-47.0); Hemoglobin 9.8 g/dl (12.0-16.0); Mean Corpuscular Hgb Conc 31.8 g/dL (32.0-36.0); Mean Corpuscular Volume 116.2 fL (80.0-100.0); Mean Platelet Volume 13.3 fL (9.4-12.4); Platelet Count 46 K/uL (130-400); RDW Coefficient of Variation 17.7 % (11.5-14.5); RDW Standard Deviation 77.7 fL (36.4-46.3); Red Blood Count 2.65 M/uL (4.20-5.40); White Blood Count 2.45 K/ul (4.8-10.8)
[2023-05-10] MEDS ORDERED: LACTATED RINGER'S 1,000 ML IV ONE (02:37)
[2023-05-10 02:41] LABS: Troponin I High Sensitivity 44.1 pg/ml (0-14)
[2023-05-10 02:42] LABS: Basophils # (auto) 0.03 K/uL (0.00-0.20); Basophils % (auto) 1.2 %; Echinocytes 2+; Eosinophils # (auto) 0.01 K/uL (0.00-0.50); Eosinophils % (auto) 0.4 %; Immature Granulocytes # (auto) 0.01 K/uL (0.01-0.20); Immature Granulocytes % (auto) 0.4 %; Lymphocytes # (auto) 0.36 K/uL (1.20-3.40); Lymphocytes % (auto) 14.7 %; Monocytes # (auto) 0.28 K/uL (0.11-0.59); Monocytes % (auto) 11.4 %; Neutrophils # (auto) 1.76 K/uL (1.40-6.50); Neutrophils % (auto) 71.9 %; Polychromasia 1+; Tear Drop Cells 2+
[2023-05-10] MEDS ORDERED: GLUCOSE 40% GEL 15 GM TUBE PO PRN (04:25)
[2023-05-10] MEDS ORDERED: DEXTROSE 50% 50 ML SYRINGE IV PRN (04:25)
[2023-05-10] MEDS ORDERED: CARBOHYDRATES FOR HYPOGLYCEMIA PO PRN (04:25)
[2023-05-10] MEDS ORDERED: GLUCOSE 10 TAB/TUBE PO PRN (04:25)
[2023-05-10] MEDS ORDERED: GLUCAGON FOR INJ 1 MG VIAL SQ PRN (04:25)
[2023-05-10] MEDS: INSULIN ASPART PER UNIT CHARGE SC SCH ×3 (05:29→22:46)
[2023-05-10] MEDS: LANTUS PER UNIT CHARGE SQ SCH (05:29)
[2023-05-10] MEDS: LEVOTHYROXINE SODIUM 150 MCG TABLET PO SCH (05:30)
[2023-05-10] MEDS: LINACLOTIDE 145 MCG CAPSULE PO SCH (05:30)
--- NOTE | 2023-05-10 06:38 | CT Scan Report ---
Exam(s): CT ABDOMEN + PELVIS Without Contrast EXAM: CT Abdomen and Pelvis Without Intravenous Contrast CLINICAL HISTORY: Reason for exam: hematuria. TECHNIQUE: Axial computed tomography images of the abdomen and pelvis without intravenous contrast. Automated exposure control was utilized for the study. A dose lowering technique was utilized adhering to the principles of ALARA. COMPARISON: No relevant prior studies available. FINDINGS: Limitations: Limited evaluation in the absence of contrast. Lung bases: Dependent consolidation within the right greater than left lower lobes which likely relates to infection/aspiration changes. ABDOMEN: Liver: Cirrhotic morphology of the liver. Gallbladder and bile ducts: Unremarkable. No calcified stones. No ductal dilation. Pancreas: Unremarkable. No ductal dilation. Spleen: Unremarkable. The spleen measures 13.4 cm in maximum dimension. Adrenals: Unremarkable. No mass. Kidneys and ureters: No evidence of obstructive renal calculi or signs of collecting system dilatation. Nonobstructive calculi noted within the kidneys, the largest within the interpolar left kidney measuring up to 6 mm. Small foci of gas noted within the left renal collecting system. Findings may be due to sequelae of ascending urinary tract infection. Consider correlation with laboratory values. Stomach and bowel: Unremarkable. No obstruction. No mucosal thickening. PELVIS: Appendix: No findings to suggest acute appendicitis. Bladder: Cline within the bladder with gas the bladder dome. This may be due to Cline placement. Cystitis also possible. No stones. Reproductive: IUD in situ. ABDOMEN and PELVIS: Intraperitoneal space: Moderate volume of abdominal and pelvic ascites. No free air. Bones/joints: Degenerative changes in the spine. No acute fracture. No dislocation. Soft tissues: Unremarkable. Vasculature: Atherosclerotic disease. Esophageal, gastric, and splenic varices. No abdominal aortic aneurysm. Lymph nodes: Unremarkable. No enlarged lymph nodes. IMPRESSION: 1. No evidence of obstructive renal calculi or signs of collecting system dilatation. Nonobstructive calculi noted within the kidneys, the largest within the interpolar left kidney measuring up to 6 mm. 2. Small foci of gas noted within the left renal collecting system. Findings may be due to sequelae of ascending urinary tract infection. Consider correlation with laboratory values. 3. Cline within the bladder with gas the bladder dome. This may be due to Cline placement. Cystitis also possible. 4. Cirrhotic morphology of the liver with sequela of portal hypertension including moderate mesenteric ascites and esophageal, gastric, and splenic varices. Additional splenomegaly noted. 5. Moderate volume of abdominal and pelvic ascites. 6. No other acute findings. Electronically signed by: Jarett Zarate MD 05/10/23 06:37 AM
[2023-05-10 06:39] LABS: Hematocrit (blood only) 32.8 % (37.0-47.0); Hemoglobin 10.3 g/dl (12.0-16.0)
--- NOTE | 2023-05-10 06:40 | CT Scan Report ---
CT head/brain wo con CLINICAL HISTORY: ams Technique: Contiguous axial CT images of the head were acquired from the base of the skull to the deondre nito without intravenous contrast administration. Images were viewed in brain, subdural and [facility]. Automated dose lowering techniques and/or adjustment according to patient size were utilized for this exam. Comparison: Comparison is made to CT head 05/22/2022 Findings: Areas of decreased attenuation are present in the periventricular and subcortical white matter bilate rally consistent with small vessel ischemic disease. Generalized cerebral atrophy with commensurate e nlargement of the ventricles, sulci, and cisterns is also present. There is no acute intracranial hem orrhage or evidence of acute territorial infarction. No shift of the midline structures, mass effect, or extra-axial abnormalities are shown. Atherosclerotic calcifications are present in the intracran ial segments of the internal carotid arteries. Imaged portions of the paranasal sinuses and mastoid air cells are clear. The orbits appear normal. There are no acute fractures of the calvaria or scalp swelling. Impression: No acute intracranial hemorrhage, no evidence of acute territorial infarction or other acute intracra nial disease process. ACT 112: Negative or not required by law. Electronically signed by: Barak John M.D. 05/10/2023 6:38 AM
[2023-05-10 06:52] LABS: Troponin I High Sensitivity 38.4 pg/ml (0-14)
[2023-05-10] MEDS: predniSONE 20 MG TAB PO SCH (08:08)
[2023-05-10] MEDS: LACTULOSE SYRUP 30 GM/45 ML UDP PO SCH ×3 (08:08→22:43)
[2023-05-10] MEDS: FLUTICASONE/VILANTEROL 200/25MCG 14 PUFFS/INHALER INH SCH (08:08)
[2023-05-10] MEDS: FLUTICASONE PROPIONATE NA SPR 16 GM BTL SCH (08:09)
[2023-05-10] MEDS: oxyBUTYnin chloride 5 MG TAB PO SCH ×2 (08:10→22:42)
[2023-05-10] MEDS: ASPIRIN 81 MG CHEW PO SCH (08:10)
[2023-05-10] MEDS: DOXYCYCLINE HYCLATE 100 MG CAP PO SCH ×2 (08:10→22:43)
[2023-05-10] MEDS: CETIRIZINE HCL 10 MG TABLET PO SCH (08:10)
[2023-05-10] MEDS: ESCITALOPRAM OXALATE 20 MG TAB PO SCH (08:10)
[2023-05-10] MEDS: DOCUSATE SODIUM 100 MG CAP PO SCH (08:10)
[2023-05-10] MEDS: PANTOprazole 40 MG TAB PO SCH ×2 (08:10→22:42)
[2023-05-10] MEDS: ACETAMINOPHEN 500 MG TAB PO PRN (08:14)
[2023-05-10] MEDS ORDERED: methylPREDNISolone 40 MG in SYRINGE 0 ML IV SCH (09:00)
--- NOTE | 2023-05-10 10:17 | Hospitalist Progress Note ---
Date of Service May 10, 2023 Assessment & Plan (1) Acute hypoxemic respiratory failure: Plan: Likely due to aspiration pneumonia Reports of vomiting episodes at home CXR noted chronic interstitial thickening, bibasilar scarring/atelectasis CT abd/pelvis noted dependent consolidation in right greater than left lower lobes Abdominal pain Urinary Tract Infection UA suggestive of UTI History of ESBL UTI Though patient did not meet 2 SIRS criteria on admission (Had only leukopenia), Sepsis is still a possibility considering possible UTI/pneumonia and lactic acidosis Continue IV ertapenem and doxycycline Follow up urine and blood cultures Lactic acidosis likely due to infectious process in the background of cirrhosis and home metformin. Got IVF bolus, Lactate peaked at 5. Not yet normalized Continue to monitor Considering history of cirrhosis and abd CT showing moderate ascites, will have IR take a look to see if fluids can be obtained to rule out SBP as well Hyperkalemia on admission may be related to home potassium/aldactone. Holding home po potassium for now Was reported to have had confusion per on day of admission CT head did not show any acute abnormalities Encephalopathy may be related to current illness Hypotension BP was low on admission. Currently running 100s/60s Continue to monitor NAFLD Cirrhosis Continue lactulose Holding lasix, aldactone, potassium due to hypotension and above diagnoses Mood disorder Fibromyalgia Continue home medication Hyperlipidemia On atorvastatin Chronic pancytopenia Likely secondary to cirrhosis Gets regular PRBC approximately every 2 weeks per patient via chest port Hemoglobin at baseline Monitor Hypothyroidism Continue levothyroxine Diabetes mellitus Hold home antidiabetic agents Continue ISS per protocol Monitor Elevated troponin Maybe due to demand ischemia from infection Will get TTE DVT prophylaxis. SCDs RE thrombocytopenia Full code Patient requesting updates from providers. Mr. Syed Bustos, contact numbers [phone]. I spent a total of 50 minutes coordinating, documenting and providing care for this patient excluding time spent in performance of separately billed services Admission and Anticipated Discharge Date Admission Date: May 09, 2023 Subjective Patient seen and examined Reports malaise, nausea, generalized abd pain No vomiting today Reports nonproductive cough. Denied chest pain/SOB Denied fever, chills Denied dysuria/freq prior to coming to the hospital Denied diarrhea, hematochezia Reports she is non ambulatory at baseline (uses wheel chair) and uses oxygen at night with her CPAP Physical Exam Constitutional: + ill appearing and + obese Eyes: PERRL, conjunctivae normal, anicteric sclerae ENMT: external ear and nose normal, oropharynx normal Respiratory: Normal respiratory effort, no respiratory distress, on nasal cannula, diminished breath sounds lung bases Cardiovascular: Rate/Rhythm: regular rate and regular rhythm S1 S2 Gastrointestinal (Abdomen): Soft, mild tenderness (generalized), no guarding/rebound, +bowel sounds Musculoskeletal: +ALEX, chronic stasis changes Neurologic: PERRL, EOMI, accommodation nl, no face palsy, no dysarthria Psychiatric: A+Ox3, euthymic affect Results & Data Results & Data Vital Signs (Past 12 Hours) Vital Signs Temp Pulse Pulse Resp BP BP Pulse Ox 05/10/23 07:42 37.1 C 78 19 108/65 91 05/10/23 05:49 05/10/23 04:47 78 05/10/23 04:35 36.7 C 81 20 117/91 92 05/10/23 04:29 79 19 94 05/10/23 02:33 76 12 96 05/10/23 00:28 77 05/10/23 03:00 75 16 91/65 L 95 05/10/23 02:30 74 12 104/58 L 96 05/10/23 01:30 75 14 100/65 95 05/10/23 01:00 79 16 110/74 93 05/10/23 00:30 76 18 111/67 96 05/10/23 00:00 74 18 107/62 94 05/09/23 23:56 76 21 94 05/09/23 23:30 77 18 99/49 L 93 05/09/23 23:14 75 16 91/58 L 95 O2 Del Method O2 Flow Rate FiO2 05/10/23 07:42 Nasal Cannula 3.0 05/10/23 05:49 CPAP 2 05/10/23 04:47 05/10/23 04:35 Nasal Cannula 4 05/10/23 04:29 5 05/10/23 02:33 40 05/10/23 00:28 05/10/23 03:00 05/10/23 02:30 05/10/23 01:30 05/10/23 01:00 05/10/23 00:30 05/10/23 00:00 05/09/23 23:56 40 05/09/23 23:30 CPAP 40 05/09/23 23:14 Laboratory Results Abnormal lab results 05/09/23 05/09/23 05/09/23 Range/Units 20:59 20:59 20:59 WBC 4.74 L (4.8-10.8) K/ul RBC 3.04 L (4.20-5.40) M/uL Hgb 11.0 L (12.0-16.0) g/dl Hct 35.5 L (37.0-47.0) % MCV 116.8 H (80.0-100.0) fL MCH 36.2 H (25.0-34.0) pg MCHC 31.0 L (32.0-36.0) g/dL RDW Std Deviation 77.7 H (36.4-46.3) fL RDW Coeff of Bradley 18.0 H (11.5-14.5) % Plt Count 69 L (130-400) K/uL MPV 12.9 H (9.4-12.4) fL Lymph # (Auto) 0.60 L (1.20-3.40) K/uL PT 15.4 H (9.0-12.0) Seconds INR 1.4 H (0.9-1.1) ABG pH (7.35-7.45) ABG O2 Saturation (90-95) % VBG pH (7.36-7.41) Potassium 5.3 H (3.5-5.1) mmol/L Chloride 110 H (98-107) mmol/L Carbon Dioxide 18 L (21-32) mmol/L BUN/Creatinine Ratio 20.8 H (10-20) Glucose 162 H (70-99(Fasting)) mg/dl POC Glucose (70-99) mg/dl Lactate (0.4-2.0) mmol/L Calcium (8.6-10.3) mg/dl Total Bilirubin 2.9 H (0.2-1.0) mg/dl Direct Bilirubin 1.2 H (0-0.2) mg/dl AST 90 H (13-39) U/L ALT 59 H (7-52) U/L Alkaline Phosphatase 115 H (34-104) U/L Troponin I High Sens 22.0 H (0-14) pg/ml Total Protein (6.0-8.3) gm/dl Albumin 2.9 L (3.4-5.0) gm/dl Albumin/Globulin Ratio (0.9-2) Lipase 8 L (11-82) U/L Procalcitonin (0-0.5) ng/ml Urine Appearance (Clear) Urine Protein (Negative) Urine Ketones (Negative) Urine Blood (Negative) Urine Nitrite (Negative) Urine Bilirubin (Negative) Ur Leukocyte Esterase (Negative) Urine WBC (Auto) (0-5) /hpf Urine RBC (Auto) (0-4) /hpf U Epithel Cells (Auto) (0-5) /lpf Urine Bacteria (Auto) (Negative) Nasal Screen MRSA (PCR) (Negative) 05/09/23 05/09/23 05/09/23 Range/Units 20:59 20:59 21:04 WBC (4.8-10.8) K/ul RBC (4.20-5.40) M/uL Hgb (12.0-16.0) g/dl Hct (37.0-47.0) % MCV (80.0-100.0) fL MCH (25.0-34.0) pg MCHC (32.0-36.0) g/dL RDW Std Deviation (36.4-46.3) fL RDW Coeff of Bradley (11.5-14.5) % Plt Count (130-400) K/uL MPV (9.4-12.4) fL Lymph # (Auto) (1.20-3.40) K/uL PT (9.0-12.0) Seconds INR (0.9-1.1) ABG pH (7.35-7.45) ABG O2 Saturation (90-95) % VBG pH 7.28 L (7.36-7.41) Potassium (3.5-5.1) mmol/L Chloride (98-107) mmol/L Carbon Dioxide (21-32) mmol/L BUN/Creatinine Ratio (10-20) Glucose (70-99(Fasting)) mg/dl POC Glucose (70-99) mg/dl Lactate 3.8 H* (0.4-2.0) mmol/L Calcium (8.6-10.3) mg/dl Total Bilirubin (0.2-1.0) mg/dl Direct Bilirubin (0-0.2) mg/dl AST (13-39) U/L ALT (7-52) U/L Alkaline Phosphatase (34-104) U/L Troponin I High Sens (0-14) pg/ml Total Protein (6.0-8.3) gm/dl Albumin (3.4-5.0) gm/dl Albumin/Globulin Ratio (0.9-2) Lipase (11-82) U/L Procalcitonin 0.97 H (0-0.5) ng/ml Urine Appearance (Clear) Urine Protein (Negative) Urine Ketones (Negative) Urine Blood (Negative) Urine Nitrite (Negative) Urine Bilirubin (Negative) Ur Leukocyte Esterase (Negative) Urine WBC (Auto) (0-5) /hpf Urine RBC (Auto) (0-4) /hpf U Epithel Cells (Auto) (0-5) /lpf Urine Bacteria (Auto) (Negative) Nasal Screen MRSA (PCR) (Negative) 05/09/23 05/09/23 05/09/23 Range/Units 21:20 22:40 22:53 WBC (4.8-10.8) K/ul RBC (4.20-5.40) M/uL Hgb (12.0-16.0) g/dl Hct (37.0-47.0) % MCV (80.0-100.0) fL MCH (25.0-34.0) pg MCHC (32.0-36.0) g/dL RDW Std Deviation (36.4-46.3) fL RDW Coeff of Bradley (11.5-14.5) % Plt Count (130-400) K/uL MPV (9.4-12.4) fL Lymph # (Auto) (1.20-3.40) K/uL PT (9.0-12.0) Seconds INR (0.9-1.1) ABG pH (7.35-7.45) ABG O2 Saturation (90-95) % VBG pH (7.36-7.41) Potassium (3.5-5.1) mmol/L Chloride (98-107) mmol/L Carbon Dioxide (21-32) mmol/L BUN/Creatinine Ratio (10-20) Glucose (70-99(Fasting)) mg/dl POC Glucose (70-99) mg/dl Lactate 3.7 H* (0.4-2.0) mmol/L Calcium (8.6-10.3) mg/dl Total Bilirubin (0.2-1.0) mg/dl Direct Bilirubin (0-0.2) mg/dl AST (13-39) U/L ALT (7-52) U/L Alkaline Phosphatase (34-104) U/L Troponin I High Sens (0-14) pg/ml Total Protein (6.0-8.3) gm/dl Albumin (3.4-5.0) gm/dl Albumin/Globulin Ratio (0.9-2) Lipase (11-82) U/L Procalcitonin (0-0.5) ng/ml Urine Appearance Cloudy A (Clear) Urine Protein 3+ H (Negative) Urine Ketones Trace H (Negative) Urine Blood 3+ H (Negative) Urine Nitrite Positive A (Negative) Urine Bilirubin 1+ H (Negative) Ur Leukocyte Esterase 1+ H (Negative) Urine WBC (Auto) >30 H (0-5) /hpf Urine RBC (Auto) >30 H (0-4) /hpf U Epithel Cells (Auto) >30 H (0-5) /lpf Urine Bacteria (Auto) 3+ H (Negative) Nasal Screen MRSA (PCR) Positive A (Negative) 05/09/23 05/09/23 05/10/23 Range/Units 23:14 23:14 02:00 WBC (4.8-10.8) K/ul RBC (4.20-5.40) M/uL Hgb (12.0-16.0) g/dl Hct (37.0-47.0) % MCV (80.0-100.0) fL MCH (25.0-34.0) pg MCHC (32.0-36.0) g/dL RDW Std Deviation (36.4-46.3) fL RDW Coeff of Bradley (11.5-14.5) % Plt Count (130-400) K/uL MPV (9.4-12.4) fL Lymph # (Auto) (1.20-3.40) K/uL PT (9.0-12.0) Seconds INR (0.9-1.1) ABG pH 7.34 L (7.35-7.45) ABG O2 Saturation 96.7 H (90-95) % VBG pH (7.36-7.41) Potassium 5.3 H (3.5-5.1) mmol/L Chloride (98-107) mmol/L Carbon Dioxide (21-32) mmol/L BUN/Creatinine Ratio (10-20) Glucose (70-99(Fasting)) mg/dl POC Glucose (70-99) mg/dl Lactate 3.1 H* (0.4-2.0) mmol/L Calcium (8.6-10.3) mg/dl Total Bilirubin (0.2-1.0) mg/dl Direct Bilirubin (0-0.2) mg/dl AST (13-39) U/L ALT (7-52) U/L Alkaline Phosphatase (34-104) U/L Troponin I High Sens 37.0 H D (0-14) pg/ml Total Protein (6.0-8.3) gm/dl Albumin (3.4-5.0) gm/dl Albumin/Globulin Ratio (0.9-2) Lipase (11-82) U/L Procalcitonin (0-0.5) ng/ml Urine Appearance (Clear) Urine Protein (Negative) Urine Ketones (Negative) Urine Blood (Negative) Urine Nitrite (Negative) Urine Bilirubin (Negative) Ur Leukocyte Esterase (Negative) Urine WBC (Auto) (0-5) /hpf Urine RBC (Auto) (0-4) /hpf U Epithel Cells (Auto) (0-5) /lpf Urine Bacteria (Auto) (Negative) Nasal Screen MRSA (PCR) (Negative) 05/10/23 05/10/23 05/10/23 Range/Units 02:00 02:00 05:03 WBC 2.45 L (4.8-10.8) K/ul RBC 2.65 L (4.20-5.40) M/uL Hgb 9.8 L (12.0-16.0) g/dl Hct 30.8 L (37.0-47.0) % MCV 116.2 H (80.0-100.0) fL MCH 37.0 H (25.0-34.0) pg MCHC 31.8 L (32.0-36.0) g/dL RDW Std Deviation 77.7 H (36.4-46.3) fL RDW Coeff of Bradley 17.7 H (11.5-14.5) % Plt Count 46 L (130-400) K/uL MPV 13.3 H (9.4-12.4) fL Lymph # (Auto) 0.36 L (1.20-3.40) K/uL PT (9.0-12.0) Seconds INR (0.9-1.1) ABG pH (7.35-7.45) ABG O2 Saturation (90-95) % VBG pH (7.36-7.41) Potassium (3.5-5.1) mmol/L Chloride 111 H (98-107) mmol/L Carbon Dioxide 20 L (21-32) mmol/L BUN/Creatinine Ratio 24.2 H (10-20) Glucose 210 H (70-99(Fasting)) mg/dl POC Glucose 187 H (70-99) mg/dl Lactate (0.4-2.0) mmol/L Calcium 8.3 L (8.6-10.3) mg/dl Total Bilirubin 2.7 H (0.2-1.0) mg/dl Direct Bilirubin (0-0.2) mg/dl AST 81 H (13-39) U/L ALT 55 H (7-52) U/L Alkaline Phosphatase (34-104) U/L Troponin I High Sens 44.1 H (0-14) pg/ml Total Protein 5.8 L (6.0-8.3) gm/dl Albumin 2.6 L (3.4-5.0) gm/dl Albumin/Globulin Ratio 0.8 L (0.9-2) Lipase (11-82) U/L Procalcitonin (0-0.5) ng/ml Urine Appearance (Clear) Urine Protein (Negative) Urine Ketones (Negative) Urine Blood (Negative) Urine Nitrite (Negative) Urine Bilirubin (Negative) Ur Leukocyte Esterase (Negative) Urine WBC (Auto) (0-5) /hpf Urine RBC (Auto) (0-4) /hpf U Epithel Cells (Auto) (0-5) /lpf Urine Bacteria (Auto) (Negative) Nasal Screen MRSA (PCR) (Negative) 08/30/23 08/30/23 08/30/23 Range/Units 05:55 05:55 05:55 WBC (4.8-10.8) K/ul RBC (4.20-5.40) M/uL Hgb 10.3 L (12.0-16.0) g/dl Hct 32.8 L (37.0-47.0) % MCV (80.0-100.0) fL MCH (25.0-34.0) pg MCHC (32.0-36.0) g/dL RDW Std Deviation (36.4-46.3) fL RDW Coeff of Bradley (11.5-14.5) % Plt Count (130-400) K/uL MPV (9.4-12.4) fL Lymph # (Auto) (1.20-3.40) K/uL PT (9.0-12.0) Seconds INR (0.9-1.1) ABG pH (7.35-7.45) ABG O2 Saturation (90-95) % VBG pH (7.36-7.41) Potassium (3.5-5.1) mmol/L Chloride (98-107) mmol/L Carbon Dioxide (21-32) mmol/L BUN/Creatinine Ratio (10-20) Glucose (70-99(Fasting)) mg/dl POC Glucose (70-99) mg/dl Lactate 5.0 H* (0.4-2.0) mmol/L Calcium (8.6-10.3) mg/dl Total Bilirubin (0.2-1.0) mg/dl Direct Bilirubin (0-0.2) mg/dl AST (13-39) U/L ALT (7-52) U/L Alkaline Phosphatase (34-104) U/L Troponin I High Sens 38.4 H (0-14) pg/ml Total Protein (6.0-8.3) gm/dl Albumin (3.4-5.0) gm/dl Albumin/Globulin Ratio (0.9-2) Lipase (11-82) U/L Procalcitonin (0-0.5) ng/ml Urine Appearance (Clear) Urine Protein (Negative) Urine Ketones (Negative) Urine Blood (Negative) Urine Nitrite (Negative) Urine Bilirubin (Negative) Ur Leukocyte Esterase (Negative) Urine WBC (Auto) (0-5) /hpf Urine RBC (Auto) (0-4) /hpf U Epithel Cells (Auto) (0-5) /lpf Urine Bacteria (Auto) (Negative) Nasal Screen MRSA (PCR) (Negative) 05/10/23 05/10/23 Range/Units 07:39 09:35 WBC (4.8-10.8) K/ul RBC (4.20-5.40) M/uL Hgb (12.0-16.0) g/dl Hct (37.0-47.0) % MCV (80.0-100.0) fL MCH (25.0-34.0) pg MCHC (32.0-36.0) g/dL RDW Std Deviation (36.4-46.3) fL RDW Coeff of Bradley (11.5-14.5) % Plt Count (130-400) K/uL MPV (9.4-12.4) fL Lymph # (Auto) (1.20-3.40) K/uL PT (9.0-12.0) Seconds INR (0.9-1.1) ABG pH (7.35-7.45) ABG O2 Saturation (90-95) % VBG pH (7.36-7.41) Potassium (3.5-5.1) mmol/L Chloride (98-107) mmol/L Carbon Dioxide (21-32) mmol/L BUN/Creatinine Ratio (10-20) Glucose (70-99(Fasting)) mg/dl POC Glucose 198 H (70-99) mg/dl Lactate 4.0 H* (0.4-2.0) mmol/L Calcium (8.6-10.3) mg/dl Total Bilirubin (0.2-1.0) mg/dl Direct Bilirubin (0-0.2) mg/dl AST (13-39) U/L ALT (7-52) U/L Alkaline Phosphatase (34-104) U/L Troponin I High Sens (0-14) pg/ml Total Protein (6.0-8.3) gm/dl Albumin (3.4-5.0) gm/dl Albumin/Globulin Ratio (0.9-2) Lipase (11-82) U/L Procalcitonin (0-0.5) ng/ml Urine Appearance (Clear) Urine Protein (Negative) Urine Ketones (Negative) Urine Blood (Negative) Urine Nitrite (Negative) Urine Bilirubin (Negative) Ur Leukocyte Esterase (Negative) Urine WBC (Auto) (0-5) /hpf Urine RBC (Auto) (0-4) /hpf U Epithel Cells (Auto) (0-5) /lpf Urine Bacteria (Auto) (Negative) Nasal Screen MRSA (PCR) (Negative)
[2023-05-10] MEDS: ALBUT/IPRATROP 3MG/0.5MG NEB 3 ML VIAL NEB SCH ×4 (11:13→19:48)
--- NOTE | 2023-05-10 11:52 | Radiology Progress Note ---
Date of Service May 10, 2023 Radiology Progress Note Pt for diagnostic paracentesis. CT this morning at 0339hrs showed scant ascites fluid at dome of the liver. Real time US imaging now did not show any significant ascites to aspirate. No paracentesis performed. Results & Data Vital Signs (Past 12 Hours) Vital Signs Temp Pulse Pulse Resp BP BP Pulse Ox 05/10/23 08:00 76 05/10/23 08:00 05/10/23 11:13 78 18 93 05/10/23 07:42 37.1 C 78 19 108/65 91 05/10/23 05:49 05/10/23 04:47 78 05/10/23 04:35 36.7 C 81 20 117/91 92 05/10/23 04:29 79 19 94 05/10/23 02:33 76 12 96 05/10/23 00:28 77 05/10/23 03:00 75 16 91/65 L 95 05/10/23 02:30 74 12 104/58 L 96 05/10/23 01:30 75 14 100/65 95 05/10/23 01:00 79 16 110/74 93 05/10/23 00:30 76 18 111/67 96 05/10/23 00:00 74 18 107/62 94 05/09/23 23:56 76 21 94 O2 Del Method O2 Flow Rate FiO2 05/10/23 08:00 05/10/23 08:00 Nasal Cannula 05/10/23 11:13 Nasal Cannula 3 05/10/23 07:42 Nasal Cannula 3.0 05/10/23 05:49 CPAP 2 05/10/23 04:47 05/10/23 04:35 Nasal Cannula 4 05/10/23 04:29 5 05/10/23 02:33 40 05/10/23 00:28 05/10/23 03:00 05/10/23 02:30 05/10/23 01:30 05/10/23 01:00 05/10/23 00:30 05/10/23 00:00 05/09/23 23:56 40
[2023-05-10] MEDS: CEROVITE ADV FORMULA TAB PO SCH (13:42)
--- NOTE | 2023-05-10 14:56 | Ultrasound Report ---
ULTRASOUND ASCITES CHECK CLINICAL HISTORY: Paracentesis to evaluate for spontaneous bacterial peritonitis. COMPARISON STUDY: Abdominal CT dated 05/10/2023. FINDINGS: Real-time grayscale sonography of all 4 quadrants of the abdomen is performed to evaluate a bdominal ascites in preparation for a paracentesis procedure. There is a small volume of abdominal as cites, greatest overlying the liver. This was insufficient for paracentesis. IMPRESSION: Small volume of abdominal ascites, which was insufficient for paracentesis. The procedure was deferred. Electronically signed by: Selvin Barroso M.D. 05/10/2023 2:54 PM
--- OUTSIDE RECORDS SUMMARY | 2023-05-10 16:34 | External Medical Summary | Summary of Care ---
Author Name Unknown Organization [facility] Address [address] [facility] [place] [address] Phone [phone] Care Team Providers Care Umbrella Finisher Name Role Phone Vanita Dunn MD Primary Care Provid er Reason for Visit * Reason Onset Date Comments [facility]: Maintenance 05/09/2023 Encounter Details Date Type Department Care Team Description 05/09/2023 Scheduled Telephone [facility], [facility] [address] [facility] [place] [address] Coordinator, [facility] [address] [facility] [place] [address] Allergies Active Allergy Reactions Severity Noted Date Comments Adhesive Tape Itching 04/29/2020 Penicillins Rash 02/12/2008 Penicillin G 07/20/2018 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 documented as of this encounter (statuses as of 05/09/2023) Medications Medication Sig Dispensed Refills Start Date End Date Status nystatin (NYSTOP) 307643 UNIT/GM powder Apply topically to affected area 3 times a day. 60 g 1 10/16/2019 Active Dexcom G6 R D Intern Device Use as directed. To test blood sugars 4 times a day Dx E11.9 1 Each 0 09/14/2020 Active Dexcom G6 Transmitter Use as directed. To test blood sugars 4 times a day. Change every 90 days. Dx E11.9 1 Each 3 09/14/2020 Active OneTouch Verio In Vitro Strip (Glucose Blood) TESTING once daily 100 Strip 3 10/29/2020 Active OneTouch Delica Plus [id number] TESTING once daily 100 Each 3 10/29/2020 Active BiPAP every night at bedtime. 0 Active MEDICAL INSTRUCTIONSIndicati ons:Iron deficiency anemia due to chronic blood loss Please de-access patient's port. Please flush with 10 mL of NS, followed by 500 units (5 mL) of heparin. 1 Each 0 03/12/2021 Active Docusate Sodium 100 MG Oral Capsule (Colace) TAKE 1 CAPSULE BY MOUTH ONCE DAILY 68 Cap 0 05/29/2021 Active Fluticasone Propionate 50 MCG/ACT Nasal Suspension (Flonase)Indications :Sinus congestion USE 2 SPRAYS IN EACH NOSTRIL ONCE DAILY DIRECTED 16 g 5 06/11/2021 Active Dexcom G6 Sensor use as directed to test blood sugar 4 times daily. change sensor every 10 days 3 Each 3 09/27/2021 Active Disposable Brief X-LargeIndications:H ypertensive heart disease with chronic diastolic congestive heart failure (HCC),Hepatic cirrhosis, unspecified hepatic cirrhosis type, unspecified whether ascites present (HCC),Other cerebral palsy (HCC),Urinary incontinence, unspecified type,Frequent fecal incontinence Use as directed 60 Each 5 10/06/2021 Active Levothyroxine Sodium 150 MCG Oral Tablet (Levoxyl)Indications :Acquired hypothyroidism Take by mouth 1 Tablet in the morning. (at least 30 min prior to breakfast or other meds). 30 Tablet 11 05/20/2022 Active BD Pen Needle Mini U/F 31G X 5 MM (Insulin Pen Needle)Indications:T ype 2 diabetes mellitus with hemoglobin A1c goal of less than 7.0% ([facility]) USE TO INJECT INSULIN FOUR TIMES DAILY. 400 Each 3 05/23/2022 Active Silver sulfADIAZINE 1 % External Cream (Silvadene)Indicatio ns:Pressure injury of skin of sacral region, unspecified injury stage Apply topically to affected area daily . Apply to wound 85 g 11 07/06/2022 Active Furosemide 20 MG Oral Tablet (Lasix) TAKE 1 TABLET BY MOUTH DAILY as needed for lower extremity swelling 90 Tablet 3 09/09/2022 Active Additional Information Patient taking differently: 20 mg Oral Daily(AM), Reported on 03/09/2023 Pantoprazole Sodium 20 MG Oral Tablet Delayed Release (Protonix)Indication s:NAFLD (nonalcoholic fatty liver disease),Other cirrhosis of liver (HCC) Take 2 Tablets by mouth in the morning and 2 Tablets before bedtime. 360 Tablet 1 10/18/2022 Active Albuterol Sulfate (2.5 MG/3ML) 0.083% Inhalation Nebulization Solution (Proventil)Indicatio ns:Restrictive lung disease Inhale 1 Vial via nebulizer every 6 hours as needed for Wheezing. 120 mL 1 11/21/2022 Active Aspirin Low Dose 81 MG Oral Tablet Chewable (aspirin) CHEW AND SWALLOW 1 TABLET BY MOUTH DAILY 30 Tablet 5 12/03/2022 Active Cetirizine HCl 10 MG Oral Tablet (ZyrTEC) Take 0.5 Tablets by mouth in the morning. 30 Tablet 2 12/09/2022 Active Linzess 290 MCG Oral Capsule (linaCLOtide) TAKE 1 CAPSULE BY MOUTH once DAILY before breakfast 90 Capsule 3 12/23/2022 Active Potassium Chloride ER 10 MEQ Oral Tablet Extended ReleaseIndications:H ypokalemia Take by mouth 1 tablet in the morning with food. 90 Tablet 3 01/01/2023 Active Nadolol 40 MG Oral Tablet (Corgard)Indications :HTN, goal below 140/90 TAKE 1 TABLET BY MOUTH DAILY 90 Tablet 3 01/26/2023 Active Oxybutynin Chloride 5 MG Oral Tablet (Ditropan)Indication s: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,Other cerebral palsy (HCC) TAKE 1 TABLET BY MOUTH TWICE DAILY 180 Tablet 1 01/27/2023 Active Gabapentin 300 MG Oral Capsule (Neurontin)Indicatio ns:DM type 2 with diabetic peripheral neuropathy (HCC),Diabetic foot (HCC) TAKE 1 CAPSULE BY MOUTH IN THE MORNING, 1 CAPSULE MIDDAY, 2 CAPSULES IN THE EVENING. MAY TAKE AN EXTRA DOSE IN THE MORNING AND MIDDAY IF NEEDED FOR PAIN. MAX DAILY AMOUNT: 6 CAPSULES 360 Capsule 1 01/27/2023 Active Escitalopram Oxalate 20 MG Oral Tablet (Lexapro)Indications :Recurrent major depressive disorder, in partial remission (HCC) TAKE 1 TABLET BY MOUTH DAILY 90 Tablet 3 01/26/2023 Active Lidocaine-Prilocaine 2.5-2.5 % External Cream (Emla)Indications:En counter for antineoplastic chemotherapy,Iron deficiency anemia due to chronic blood loss Apply topically to affected area as needed for Other (when accessing port). APPLY TO SKIN OVER MEDIPORT & COVER 1HR PRIOR TO ACCESSING. 30 g 0 02/01/2023 Active Fluticasone-Salmeter ol 250-50 MCG/ACT Inhalation Aerosol Powder Breath Activated (Advair Diskus) INHALE 1 PUFF BY MOUTH TWICE DAILY 180 Each 1 02/19/2023 Active Isosorbide Mononitrate ER 30 MG Oral Tablet Extended Release 24 Hour (Imdur) TAKE 1 TABLET BY MOUTH DAILY 90 Tablet 1 02/19/2023 Active metFORMIN HCl ER 500 MG Oral Tablet Extended Release 24 Hour (Glucophage XR) TAKE 1 TABLET BY MOUTH DAILY with food. 90 Tablet 1 02/19/2023 Active Atorvastatin Calcium 80 MG Oral Tablet (Lipitor) TAKE 1 TABLET BY MOUTH EVERY DAY AT BEDTIME 90 Tablet 1 02/19/2023 Active Benzonatate 200 MG Oral CapsuleIndications:B ronchitis, complicated Take 1 Capsule by mouth 3 times a day as needed for Cough. 30 Capsule 1 03/07/2023 Active One-A-Day Womens 50+ Oral Tablet Take 1 Tablet by mouth in the morning. 0 Active NovoLOG FlexPen 100 UNIT/ML Subcutaneous Solution Pen-injectorIndicati ons:Type 2 diabetes mellitus with hemoglobin A1c goal of less than 8.0% ([facility]) 35 Units at breakfast, 45 Units before lunch, 82 Units before supper 150 mL 3 03/21/2023 Active Trulicity 4.5 MG/0.5ML Subcutaneous Solution Pen-injector (Dulaglutide)Indicat ions:Type 2 diabetes mellitus with hemoglobin A1c goal of less than 7.0% ([facility]) inject 4.5mg ( 1 pen) under skin once weekly 6 mL 3 03/25/2023 Active Lactulose 10 GM/15ML Oral Solution (Constulose) Take 45 mL by mouth in the morning and 45 mL at noon and 45 mL before bedtime. take 45ml by mouth three times daily. 3784 mL 6 03/27/2023 Active traZODone HCl 50 MG Oral Tablet (Desyrel)Indications :Sleep disturbances TAKE 1 TABLET BY MOUTH AT BEDTIME 90 Tablet 2 04/30/2023 Active Spironolactone 25 MG Oral Tablet (Aldactone)Indicatio ns:Chronic diastolic (congestive) heart failure (HCC) TAKE 2 TABLETS BY MOUTH EVERY MORNING 180 Tablet 0 05/01/2023 Active Insulin Glargine Solostar 100 UNIT/ML Subcutaneous Solution Pen-injector (Basaglar KwikPen)Indications: Type 2 diabetes mellitus with hemoglobin A1c goal of less than 8.0% ([facility]) Inject 46 Units under the skin daily. 45 mL 3 05/01/2023 Active Nitroglycerin 0.4 MG Sublingual Tablet Sublingual (Nitrostat) PLACE 1 TABLET UNDER THE TONGUE EVERY 5 MINUTES, NEEDED FOR CHEST PAIN. UP TO 3 DOSES IN 15 MINUTES. 25 Tablet 11 05/04/2023 Active Doxycycline Hyclate 100 MG Oral CapsuleIndications:R estrictive lung disease Take 1 Capsule by mouth in the morning and 1 Capsule before bedtime. Do all this for 10 days. Until gone.. 20 Capsule 0 2023 3 Active predniSONE 20 MG Oral Tablet (Deltasone)Indicatio ns:Restrictive lung disease Take 2 Tablets by mouth in the morning for 5 days. 10 Tablet 0 2023 3 Active Hospital, Clinic, or Other Facility Administered Medication Ordered Dose Route Frequency Start Date End Date Status Albuterol Sulfate (Proventil) (5 MG/ML) 0.5% *conc* inhalation solution 2.5 mgIndications:Moderate persistent asthma without complication 2.5 mg NEBULIZER PRN 12/09/2022 12/09/2023 Acti ve Albuterol Sulfate (Proventil) (2.5 MG/3ML) 0.083% inhalation solution 2.5 mgIndications:Moderate persistent asthma without complication 2.5 mg NEBULIZER PRN 12/09/2022 12/09/2023 Acti ve documented as of this encounter (statuses as of 05/09/2023) Active Problems Problem Noted Date Thrombocytopenia 01/17/2023 Hypertensive heart failure 11/21/2022 Major depressive disorder, recurrent, mo derate 11/01/2022 Last Assessment & Plan: Stable on Lexapro Generalized anxiety disorder 11/01/2022 Pancytopenia 04/29/2022 Chronic diastolic (congestive) heart jaymie lure 09/13/2021 Last Assessment & Plan: Current Status: "Stable" for patient / At or near baseline Degree of Condition Awareness: Demonstrates very good awareness of condition, disease course, and prognosis "RED FLAG" HF Symptoms: o Leg Swelling (Examples: "I can't wear certain socks or shoes", "My pants feel tight") o Increased shortness of breath at rest (Example: "I struggle to breathe even when watching TV") Current Heart Failure Classifications: o With less than ordinary activity ([employer] CLASS III) Diagnostic Review: Recent Labs Units 01/04/23 1337 12/14/22 1528 12/06/22 1408 12/27/21 0956 12/20/21 1448 08/09/21 0000 06/24/21 1456 LEFT VENTRICULAR EJECTION FRACTION % -- -- -- -- -- -- 55 BNP (NT-PRO-BNP) - [facility] pg/mL -- -- -- -- 175 < > -- ESTIMATED GLOMERULAR FILTRATION RATE - [facility] mL/min -- -- >90 < > >90 < > -- EGFR-OUTSIDE LAB -- -- -- -- -- < > -- HGB - [facility] g/dL 10.3* < > -- < > 10.6* < > -- HEMOGLOBIN-OUTSIDE LAB -- -- -- -- -- < > -- < > = values in this interval not displayed. Medication Regimen: o Beta Jose Carlos Therapy: Other: none ? due to low bp o ZAY Inhibitor/ARB Therapy: Other: none o Diuretic therapy: Lasix Self - Management Plan o Double dose of Furosemide for 3 days Exacerbation Plan o Chest X-Ray Appears euvolemic today. Not on a beta-jose carlos or an Zay. Could be due to lower BP. Will defer to PCP as she is seeing patient tomorrow. Portal hypertensive gastropathy 03/16/20 21 Esophageal varices 07/06/2020 Last Assessment & Plan: Continue pantoprazole and Nadolol Iron deficiency anemia due to chronic bl ood loss 12/03/2019 Last Assessment & Plan: Last hemoglobin stable at 10.3 on 01/04/2023 Gastroesophageal reflux disease 04/08/20 19 Last Assessment & Plan: Continue pantoprazole Fibromyalgia 04/08/2019 DM type 2 with diabetic peripheral neuro heather 04/04/2019 Primary insomnia 04/04/2019 Impaired mobility and ADLs 04/04/2019 Wheelchair dependent 12/21/2018 THAD on CPAP 12/26/2017 Last Assessment & Plan: Compliant with CPAP Cirrhosis of liver 11/20/2017 Last Assessment & Plan: Per pt and significant other, taking lactulose at least BID. BM several times per day Chronic pain syndrome 01/17/2017 MEDICATION USE AGREEMENT 01/17/2017 Overview: 01/17/17 Acquired hypothyroidism 12/12/2016 Last Assessment & Plan: TSH low during last admission. T4 WNL. Synthroid reduced. Recheck in 6 weeks 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 1 10/09/2015 Obesity, morbid (more than 100 lbs over ideal weight or BMI > 40) 02/09/2015 Restrictive lung disease 12/10/2014 Last Assessment & Plan: Denies breathing issues today but has had "bad days" Using advair daily and pulmicort inhaler on occasion Instructed on proper use of both inhalers. Verbalizes understanding Type 2 diabetes mellitus with hemoglobin A1c goal of less than 8.0% 09/26/2013 Overview: ICD-10 update of inactive term Last Assessment & Plan: Current Status: "Stable" for patient / At or near baseline Degree of Condition Awareness: Demonstrates poor understanding of condition, disease course, and/or prognosis "RED FLAG" Diabetic symptoms: o none Goal HgbA1c o <8 Diabetic Complications o Vascular (examples: PVD, PAD, CAD, CVA) Medication Regimen o Metformin o Basal/Long Acting Insulin o Bolus/Short Acting Insulin o GLP-1 Agonist (ex: Victoza, Trulicity, Ozempic) DM Secondary Prevention o Moderate-High Intensity Statin o Aspirin lantus 60 u HS, novolog 35 u with breakfast, 39 u at lunch, 45 u at dinner. Vitamin D deficiency 09/26/2013 Lymphedema 03/11/2013 Venous stasis dermatitis of both lower e xtremities 05/07/2012 NG (nonalcoholic steatohepatitis) 04/12 Last Assessment & Plan: Only taking lactulose twice daily. Encouraged to take as prescribed. HTN, goal below 130/80 03/27/2012 Last Assessment & Plan: BP stable -continue isosorbide, nadolol Cerebral palsy 01/24/2012 Spinal stenosis of lumbar region without neurogenic claudication 12/27/2010 DDD (degenerative disc disease), lumbar Dyslipidemia documented as of this encounter (statuses as of 05/09/2023) Resolved Problems Problem Noted Date Resolved Date Aspiration pneumonia 11/01/2022 11/21/2022 Last Assessment & Plan: Finished flagyl and omnicef from admission 10/19 Still having cough difficulty clearing secretions. Reportedly seen by speech. Recommended thickened liquids. Pt not compliant. Urged aspiration preventions Hypertensive heart disease with congestive heart failure 04/29/2022 10/18/2022 Overview: More specified code listed on PL I13.0 Food insecurity 09/20/2021 02/24/2022 Overview: Per [facility] Protocol Food insecurity 04/19/2021 09/13/2021 Overview: Per [facility] Protocol Lactic acidosis 03/22/2021 09/13/2021 Anginal chest pain at rest 02/20/202109/13 Acute on chronic heart failu re with preserved ejection fraction (HFpEF) 02/18/2021 09/13/2021 Melena 02/15/2021 09/13/2021 Vancomycin resistant enterococcus culture positi ve 02/15/2021 09/13/2021 Urinary catheter dysfunction 02/15/202111/2021 Cyst of pancreas 02/15/2021 10/01/2021 AMS (altered mental status) 02/04/2021 0505/2021 Cardiomegaly 01/30/2021 09/13/2021 SOB (shortness of breath) 01/30/20212021 Uncontrolled type 2 diabetes mellitus with hyper glycemia 07/15/2020 09/13/2021 Acute blood loss anemia 07/06/2020 12/01/19 21 Esophagitis 07/06/2020 09/13/2021 Bacteremia 07/04/2020 11/30/2020 Diabetic ulcer of right great toe 05/25/2020 04/05/2021 Pain of upper abdomen 04/23/2020 05/05/2020 Cellulitis of right toe 04/18/2020 12/01/19 21 Cellulitis of right lower extremity 04/15/2020 11/30/2020 Splenomegaly 12/03/2019 09/13/2021 Thrombocytopenia 05/02/2019 11/01/2022 History of kidney stones 04/08/2019 020 History of Achilles tendon repair 04/08/2019 09/13/2021 History of delivery 04/08/2019 History of MRSA infection 04/08/20192019 History of migraine 04/08/2019 05/05/2020 Chronic hypoxemic respiratory failure 04/08/2019 04/18/2019 Oxygen dependent 04/08/2019 04/18/2019 Anemia 04/08/2019 09/13/2021 Achilles tendinitis, right leg 04/08/2019 0 09/13/2021 long-term resident 04/08/2019 05/02/2019 Ambulatory dysfunction 04/04/2019 2 Fall 04/04/2019 05/05/2020 Sprain of right ankle 04/04/2019 05/05/2020 Recurrent major depressive disorder, in partial remission 04/04/2019 11/08/2022 Overview: More recent Dx noted on PL Last Assessment & Plan: Seems very depressed about current situation. 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 if a fci plan is made -continue lexapro Generalized weakness 04/04/2019 09/13/2021 Preop examination 02/21/2019 04/04/2019 Pancytopenia 02/21/2019 09/13/2021 History of recent fall 12/21/2018 0 Bladder tumor 10/11/2017 02/13/2018 Chronic indwelling Cline catheter 10/11/2017 02/13/2018 Recurrent UTI 10/11/2017 02/13/2018 Preoperative cardiovascular examination 10/11/19 18 02/13/2018 History of Clostridium difficile colitis 017 05/05/2020 Calculus of kidney 08/01/2017 09/13/2021 Debility 07/19/2017 02/13/2018 Body mass index (BMI) of 50.0 to 59.9 in adult 1 12/19/2017 Overview: Per Obesity protocol #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 7 02/13/2018 Atypical chest pain 08/19/2016 09/13/2021 Depression with anxiety 08/19/2016 02/14/20 18 Hepatic cirrhosis 08/19/2016 03/28/2017 Polyuria 08/09/2016 01/17/2017 Urinary frequency 08/09/2016 01/17/2017 Generalized OA 06/14/2016 03/28/2017 Body mass index (BMI) of 45.0-49.9 in adult 11/1101/17/2017 Overview: bmi= 48.04 12/09/15 Need for shingles vaccine 12/09/20152015 Bilateral shoulder pain 08/25/2015 06/07/20 16 Bilateral shoulder pain 07/16/2015 06/07/20 16 Cerebral palsy 04/23/2015 03/28/2017 Candidal vulvovaginitis 02/12/2015 06/07/20 16 THAD (obstructive sleep apnea) 02/09/2015 Leg weakness, bilateral 01/01/2015 06/07/20 16 Allergic rhinitis 05/29/2014 02/13/2018 Allergic conjunctivitis of both eyes 05/29/2014 07/02/2014 Allergic conjunctivitis of both eyes 02/27/2014 03/28/2017 Declining mobility 01/27/2014 06/07/2016 Intertrigo 01/10/2014 06/07/2016 Cutaneous candidiasis 01/10/2014 06/07/2016 DJD (degenerative joint disease), ankle and foot 01/10/2014 03/28/2017 Obesity, morbid (more than 1 00 lbs over ideal weight or BMI > 40) 10/28/2013 01/17/2017 Overview: bmi= 53.93 2/17/14 Sleep disturbance 05/21/2013 03/28/2017 Insect bites 04/19/2013 06/07/2016 Pruritus 04/19/2013 07/02/2014 Dermatitis 04/19/2013 03/28/2017 Hypokalemia 03/25/2013 06/07/2016 DJD (degenerative joint disease), ankle and foot 03/11/2013 07/02/2014 Primary osteoarthritis of right knee 03/11/2013 09/13/2021 Moderate persistent asthma without complication 01/09/2013 09/28/2021 Asthma exacerbation 01/09/2013 06/07/2016 Cough 01/09/2013 06/07/2016 Vitamin D deficiency 10/19/2012 07/02/2014 Obesity, morbid (more than 1 00 lbs over ideal weight or BMI > 40) 05/25/2012 01/17/2017 Overview: BMI= 55.27 05/25/12 Impacted cerumen 05/25/2012 06/07/2016 Hemorrhage of rectum and anus 05/07/2012 Internal hemorrhoids with other complication 01/17/2017 Edema 05/07/2012 03/28/2017 Insect bite 05/07/2012 07/02/2014 Pruritic disorder 05/07/2012 07/02/2014 Hyperglycemia 05/02/2012 09/13/2021 Diverticulosis of colon 05/02/2012 02/14/20 18 Constipation 05/02/2012 11/16/2022 Overview: Noted in 2011 Historical Internal hemorrhoids 04/12/2012 07/02/2014 Migraine variant, intractable 03/28/2012 Flatulence, eructation and gas pain 03/28/2012 06/07/2016 Shoulder joint pain 03/27/2012 06/07/2016 Myalgia and myositis 03/27/2012 07/02/2014 Chronic pain 03/27/2012 07/02/2014 Shoulder joint pain 03/27/2012 07/02/2014 Dyslipidemia, goal LDL below 100 03/27/2012 06/07/2016 Hypothyroidism 03/27/2012 01/17/2017 MEDICATION USE AGREEMENT 03/27/2012 012 MEDICATION USE AGREEMENT 03/27/2012 017 Overview: 03/27/12 Chronic rhinitis 03/27/2012 09/13/2021 UTI (urinary tract infection) 01/27/2012 Overview: Noted in 2011 historical Last Assessment & Plan: Unable to see urine cx from recent hospitalization 10/29 Currently on bactrim. Repeat straight cath UA this week Sleep disturbance 01/24/2012 07/02/2014 Malaise and fatigue 01/24/2012 06/07/2016 Myalgia and myositis 01/24/2012 06/07/2016 Urinary frequency 01/24/2012 07/02/2014 Urgency of urination 01/24/2012 06/07/2016 Kidney disease, chronic, stage III (GFR 30-59 ml /min) 01/24/2012 03/27/2012 Chronic pain 01/24/2012 01/17/2017 Genetic Sleep Disorder Research Other*[id number] 05/13/2011 04/07/2016 Obstructive sleep apnea 01/18/2011 12/27/19 18 Overview: 08/18/11 -- BIPAP auto: max IPAP to 18, min EPAP 10. SD card in 3 months. 06/29/11 Auto BIPAP -- max IPAP 15, min EPAP 9 with pressure support of 4. AHP ICD-10 update of inactive term Lumbosacral spondylosis 12/27/2010 05/25/20 12 Dyslipidemia, goal LDL below 130 06/01/2010 03/28/2012 Asthma with severity to be determined 03/04/2010 11/01/2011 Overview: Per Asthma Taxonomy ICD-10 update of inactive term Asthma in remission 03/04/2010 01/09/2013 Overview: Per Provider Protocol. Obesity, morbid (more than 1 00 lbs over ideal weight or BMI > 40) 12/08/2009 07/02/2014 Overview: Per Obesity Taxonomy ICD-10 update of inactive term Dyslipidemia, goal to be determined 08/25/2009 06/01/2010 Overview: Per Lipid Taxonomy. Lumbago 06/30/2009 03/28/2012 Pain in joint involving lower leg 06/30/2009 06/07/2016 Asthma, allergic 06/30/2009 03/04/2010 Hypothyroidism 06/30/2009 03/28/2012 HTN, goal below 140/90 06/30/2009 2 Dyslipidemia, goal to be determined 06/30/2009 08/05/2009 Overview: Per Lipid Taxonomy Hypersomnia with sleep apnea 06/30/2009 Obesity, BMI not known 06/04/2009 0 Overview: Per Obesity Taxonomy Other lymphedema 01/09/2009 06/07/2016 STASIS DERMATITIS 01/09/2009 05/07/2012 Edema 01/09/2009 05/05/2020 Venous insufficiency 01/09/2009 07/18/2022 Overview: duplicate Sleep apnea 02/08/2008 03/28/2012 Overview: Compliance 12/21 to 01/09/11 -- used device 19 of 20 days, average use on days used 4:15 hrs, >=4 hr use for 45% days, mean 12, average 14.4, AHI 6.7 12/06/10 -- unable to change to auto CPAP, download requested 03/25/2008 Split PSG -- AHI 33.5, final setting CPAP 13 cwp with oxygen CPAP -- 13 cwp with 2 LPM AHP Cervical spondylosis 12/25/2007 06/07/2016 ADVANCE DIRECTIVE INFORMATION 10/29/2007 Overview: No, Advance Directive brochure given to patient. Hypothyroidism 09/24/2007 04/08/2019 Dyslipidemia, goal LDL below 160 09/24/2007 08/25/2009 Overview: Per Lipid Taxonomy. Other specified infantile cerebral palsy 008 01/24/2012 Abdominal pain, right upper quadrant 09/24/2007 07/25/2011 OA OF LUMBAR SPINE 09/24/2007 06/07/2016 Prediabetes 10/28/2013 documented as of this encounter (statuses as of 05/09/2023) Immunizations Name Administration Dates Next Due COVID-19 mRNA, LNP-s, No Pre serve, 2-Dose Series (Moderna) 01/05/2022,07/26/2021,12/21/2020,11/09 HEP A - Hepatitis A (Adult > 18 yrs) 09/24/2018, 03/26/2018 Hepatitis B, 20+ yrs 09/24/2018,04/23/2018,03/26 Pneumococcal Conjugate Vacc, 13 Valent (Prevnar) 05/02/2019 Pneumococcal Conjugate Vacci ne, 20-valent ([id number]) 10/21/2022 Pneumococcal Polysaccharide PPV23 (Pneumovax) 06/01/2010 Seasonal Influenza, PF, 6 mo ns & Above, IM , (Flulaval) 06/01/2020,06/05/2019,05/16/2018,06/1306/05/2020 Seasonal Influenza, Quadriva lent Hd (Fluzone Hd) 07/28/2022,06/10/2021 Seasonal Influenza, Quadriva lent, No Preserve, IM 06/07/2016 Seasonal Influenza, Split, I IV3, With Preserve, Inj 05/22/2015,05/29/2014,07/25/2013,05/12,06/02/2011,06/01/2010,06/04/20 09,08/18/2008 05/22/2016 TDAP (age 10 and older)(Boostrix) 05/01/2017 05/01/2027 TDAP (age 11 and older)(Adacel) 05/26/2008 Varicella Zoster Vaccine (Adult) 12/09/2015 Zoster Vaccine Recombinant (Shingrix) 04/28/2020 documented as of this encounter Social History Tobacco Use Types Packs/Day Years Used Date Smoking Tobacco: Never Smokeless Tobacco: Never Alcohol Use Standard Drinks/Week Comments Not Currently 0 (1 standard drink = 0.6 oz pur e alcohol) rare Food Insecurity Answer Date Recorded Within the past 12 months, y ou worried that your food would run out before you got money to buy more. Sometimes true 2019 Within the past 12 months, t he food you bought just didn't last and you didn't have money to get more. Sometimes true Sex Assigned at Date Recorded Female 04/22/2020 3:35 PM E [employer] Job Start Date Occupation Industry Not on file Not on file Not on file documented as of this encounter Functional Status Functional Status Response Date of Assess ment Are you deaf or do you have serious difficulty h earing? No 03/31/2021 Are you blind or do you have serious difficulty seeing, even when wearing glasses? No 03/31/2021 Do you have serious difficul ty walking or climbing stairs? (5 years old or older) No 03/31/2021 Do you have difficulty dress ing or bathing? 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 03/31/2021 Because of a physical, menta l, or emotional condition, do you have difficulty doing errands alone such as visiting a doctor s office or shopping? (15 years old or older) No 03/31/20 Cognitive Status Response Date of Assessm ent Because of a physical, menta l, or emotional condition, do you have serious difficulty concentrating, remembering, or making decisions? (5 years old or older No 03/31/2021 documented as of this encounter Miscellaneous Notes * Telephone Encounter - Josh Main PA-C - 05/09/2023 10:30 AM EDT [facility] Phone Encounter Thank you for your assistance in the care of this patient today. Recommendations: Continue current plan: CXR, Pred and doxy 48 hr f/u call back This note was prepared with the help of fluency and if there is any mis-spelled words , sentences or something which doesn't represent the content of the subject that could be technical error and please refer to the author for clarification. * Telephone Encounter - Rachel Tomlinson RN - 05/09/2023 8:50 AM EDT [facility] Telephonic Nurse Follow-Up Call [facility] Subprogram: Focused Care Management (3-9 months) Follow Up Call Type: 24 hour follow up Acute issue requiring follow-up call: Other: follow up on resp swab and chest xray, acute HV yesterday Objective: 2023 12:29 PM 04/25/2023 2:40 PM 04/13/2023 8:52 AM 04/07/2023 9:56 AM 04/01/2023 2:16 PM VITALS ACROSS ENCOUNTERS BP 102/62 105/75 108/64 116/64 108/64 Pulse 64 73 66 70 80 Lab Results Component Value Date WBC AUTO - [facility] 3.22 (L) 04/25/2023 Lab Results Component Value Date WBC AUTO - [facility] 3.22 (L) 04/25/2023 HGB - [facility] 10.2 (L) 04/25/2023 PLATELET AUTO - [facility] 58 (L) 04/25/2023 No results found for: SODIUM - [facility], POTASSIUM - [facility], MAGNESIUM - [facility], CO2 - [facility], CREATININE - [facility], ESTIMATED GLOMERULAR FILTRATION RATE - [facility], ALBUMIN - [facility],AST - [facility], ALT - [facility], ALKALINE PHOSPHATASE - [facility] No results found for: PRO BNP, LEFT VENTRICULAR EJECTION FRACTION Remote Patient Monitoring: NONE Oxygen Needs: NO supplemental oxygen needs identified DME Needs: Nebulizer machine and supplies Medications: New medication(s) added: Doxycycline and Prednisone Subjective: Condition Status: No change in symptoms Current Concerns: Called and spoke with patient, she stated she is still coughing but feels a little better today. She did not start Doxycycline or Prednisone yet stating medications need to picked up at the pharmacy, I then spoke with he will pick up man medications today and have patient start taking them as ordered. stated she is out of Mucinex, he will pick up man more of that medication too. Informed patient respiratory swab panel was NEGATIVE. Chest x-ray was not done yet and no one has called concerning same. I called [facility] spoke with Jennifer, she stated chest xray order was not received. Chest xray order, insurance and demographics faxed to the fax number Jennifer provided.[phone]. Called [facility] again, spoke with Marisa, she stated order is not in system yet, call back I about 30 minutes to confirm order transmitted. Disposition: [place] [facility] [place]or [facility] Care Team for further advice Future Visits Scheduled: Future Appointments-next 60 days Date/Time Provider Specialty Dept Phone 05/09/2023 9:30 AM Matheus Scott DeckerModel Maker Scale [facility] [phone] 05/10/2023 9:30 AM [facility] Scott DeckerModel Maker Scale [facility] [phone] 05/17/2023 2:00 PM [facility] Pharmacist1 Pharmacy [phone] 05/17/2023 3:00 PM Chair 10 Hem Onc [facility] Hematology Oncology [phone] 05/19/2023 1:30 PM [facility]ora [facility] Air Operations Manager; ZAK Lara [facility] [phone] 05/22/2023 1:30 PM (Arrive by 1:15 PM) ZAK Bolton Gastroenterology [phone] 06/27/2023 1:45 PM (Arrive by 1:30 PM) Tono Sanchez MD Hematology Oncology [phone] 06/27/2023 2:20 PM [facility] Pharmacist1 Pharmacy [phone] 07/13/2023 1:00 PM (Arrive by 12:45 PM) ZAK Rios Sleep Disorders [phone] 07/31/2023 1:20 PM (Arrive by 1:05 PM) Vanita Dunn MD Family Medicine [phone] 07/31/2023 2:20 PM Laboratory [facility] [phone] 09/05/2023 2:00 PM (Arrive by 1:45 PM) ZAK Rangel Cardiology [phone] 10/04/2023 4:00 PM (Arrive by 3:45 PM) Renetta Martinez MD Gynecology Obstetrics [phone] Rachel Tomlinson extractor and wringer operatorAssurance Analyst [facility] documented in this encounter Plan of Treatment Upcoming Encounters Date Type Specialty Care Team Description 05/10/2023 Scheduled Telephone [facility] Mail Carrier Technician, [facility] Scott Decker [address] [place] [address] 05/17/2023 Office Visit Pharmacy Pharmacist1, [facility] [address] [facility] [place] [address] 05/17/2023 Hem/Onc Treatment Hematology Oncology [place], Chair 10 Hem Onc [place] [address] [place] [address] 05/19/2023 Telemedicine [facility] Joselin Dawson CRNP [address] [place] [address] Monika Zamora, [address] [place] [address] 05/22/2023 Office Visit Gastroenterology Lyssa Stout CRNP [address] [place] [address] 06/27/2023 Office Visit Hematology Oncology Tono Sanchez MD [address] [place] [address] 06/27/2023 Office Visit Pharmacy Pharmacist1, [facility] Sp [address] [facility] [place] [address] 07/13/2023 Office Visit Sleep Disorders Lanette Fields CRNP [address] [place] [address] 07/31/2023 Office Visit Family Medicine Vanita Dunn MD [address] [place] [address] 07/31/2023 Laboratory Laboratory [facility] [address] [place] [address] 09/05/2023 Office Visit Cardiology Quyen Canseco CRNP [address] [place] [address] 10/04/2023 Office Visit Gynecology Obstetrics Renetta Martinez MD [address] [place] [address] Scheduled Procedures Name Priority Associated Diagnoses Date/Ti me ESOPHAGOGASTRODUODENOSCOPY ( EGD), FLEXIBLE, TRANSORAL, DIAGNOSTIC Recall Esophagitis COLONOSCOPY FLEXIBLE PROXIMAL DIAGNOSTIC Recall History of colonic polyps Health Maintenance Due Date Last Done Comments DXA Scan 1955 DIABETES-EYE EXAM 06/12/2019 06/12/2018, , 06/12/2018, Additional history exists Zoster Vaccines (3 of 3) 06/23/2020 04/28/2020, 11/11 Depression Screening, Annual for Pts 12 and Over 07/27/2021 07/27/2020, 12/09/2015, 10/20/2014 COVID-19 Vaccine (5 - Moderna series) 03/02/2022 01/05/2022, 07/26/2021, 12/21/2020, Additional history exists DIABETES-FOOT EXAM 04/05/2022 04/05/2021, 0 11/06/2019, 01/09/2019, Additional history exists Albumin/Creatinine Ratio 03/30/2023 022, 01/11/2019, 02/03/2017, Additional history exists Influenza Vaccine (FLU shot) (#1) 2023 07/28/2022, 06/10/2021, 06/01/2020, Additional history exists TSH 07/06/2023 07/06/2022, 0 04/2022, 06/10/2021, Additional history exists HbA1c 10/26/2023 04/25/2023, 11/10, 05/19/2022, Additional history exists Mammogram 12/10/2023 12/09/2022, 08/13, 09/08/2020, Additional history exists GFR 02/02/2024 02/01/2023, 11/10, 08/30/2022, Additional history exists B-12 02/23/2024 02/22/2023, 01/2022, 07/06/2021, Additional history exists COLONOSCOPY-EVERY 5 YRS AGES 18-100 06/03/2025 06/03/2020, 06/03/2020, 03/17/2020, Additional history exists DTaP,Tdap,and Td Vaccines (3 - Td or Tdap) 05/01/2027 05/01/2017, 05/26/2008 Lipid Panel 02/23/2028 02/22/2023, 12/2021, 02/21/2020, Additional history exists Pap Smear Discontinued 10/10/2016, 06/12, 07/02/2014, Additional history exists Hepatitis B Completed 09/24/2018, 04/11, 03/26/2018 Pneumococcal Vaccine: 65+ Years Completed 10/21/2022, 05/02/2019, 06/01/2010 GARDASIL-HPV IMMUNIZATION SERIES Aged Out No longer eligible based on patient's age to complete this topic MENINGOCOCCAL (MENACTRA/MENVEO) Aged Out No longer eligible based on patient's age to complete this topic documented as of this encounter Medical Devices Implanted Type Area Therapy Administrative Assistant Device Identifier Shelf Expiration Date Model / Serial / Lot Microtech Sure Clip Implanted:Qty: 2 on 06/03/2020 by Janis Hatch, DO at OR [facility] Clip N/A: Colon 04/21/2022 [facility]-F-26-2 35-C-R / / [id number] documented as of this encounter Advance Directives Documents on File Type Date Recorded 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 Question Answer Comments Discussion of Advance Directives occurred with: Not Discussed Does the patient have a Living Will? No Does the patient have Health Care Power of Tool Polisher? No Code Status History Code Status Date Activated Date Inactivated Comments Full Code 12/27/2021 2:50 PM 12/27/2021 8:02 PM This order reflects the patients wishes and were consensually agreed upon. Question Answer Comments Discussion of Advance Directives occurred with: Not Discussed Does the patient have a Living Will? No Does the patient have Health Care Power of Tool Polisher? No Full Code 03/31/2021 8:57 PM 04/03/2021 4:30 PM This order reflects the patients wishes and were consensually agreed upon. Question Answer Comments Discussion of Advance Directives occurred with: Patient Full Code 03/21/2021 10:44 PM 03/24/2021 4:43 PM This order reflects the patients wishes and were consensually agreed upon. Question Answer Comments Discussion of Advance Directives occurred with: Patient Full Code 03/08/2021 3:24 AM 03/11/2021 6:09 PM This o rder reflects the patients wishes and were consensually agreed upon. Question Answer Comments Discussion of Advance Directives occurred with: Patient Healthcare Agents on File Name Relationship Healthcare Agent Relationshi p Communication Syed Bustos Spouse Emergency Contact Care Teams Umbrella Finisher Relationship Specialty Start Date End Date Vanita Dunn MD [address] [place] [address] PCP - General Family Medicine 03/16/21 documented as of this encounter
--- OUTSIDE RECORDS SUMMARY | 2023-05-10 16:34 | External Medical Summary | Summary of Care ---
Author Name Unknown Organization [facility] Address [address] [facility] [address] [place] [address] Phone [phone] Care Team Providers Care Admin Secretary Name Role Phone Vanita Dunn MD Primary Care Provid er Reason for Visit * Reason Onset Date Comments [facility]: Maintenance 05/09/2023 Encounter Details Date Type Department Care Team Description 05/09/2023 Scheduled Telephone [facility], [facility] [address] [facility] [place] [address] Coordinator, [facility] 132 [facility] [place] [address] Allergies Active Allergy Reactions Severity Noted Date Comments Adhesive Tape Itching 04/29/2020 Penicillins Rash 02/12/2008 Penicillin G 07/20/2018 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 documented as of this encounter (statuses as of 05/09/2023) Medications Medication Sig Dispensed Refills Start Date End Date Status nystatin (NYSTOP) 593616 UNIT/GM powder Apply topically to affected area 3 times a day. 60 g 1 10/16/2019 Active Dexcom G6 School Counsellor Device Use as directed. To test blood sugars 4 times a day Dx E11.9 1 Each 0 09/14/2020 Active Dexcom G6 Transmitter Use as directed. To test blood sugars 4 times a day. Change every 90 days. Dx E11.9 1 Each 3 09/14/2020 Active OneTouch Verio In Vitro Strip (Glucose Blood) TESTING once daily 100 Strip 3 10/29/2020 Active OneTouch Delica Plus [id number] TESTING once daily 100 Each 3 10/29/2020 [...] hemoglobin A1c goal of less than 7.0% ([facility]) USE TO INJECT INSULIN FOUR TIMES DAILY. [...] hemoglobin A1c goal of less than 8.0% ([facility]) 35 Units at breakfast, 45 Units before lunch, 82 Units before supper 150 mL 3 03/21/2023 Active Trulicity 4.5 MG/0.5ML Subcutaneous Solution Pen-injector (Dulaglutide)Indicat ions:Type 2 diabetes mellitus with hemoglobin A1c goal of less than 7.0% ([facility]) inject 4.5mg ( 1 pen) under skin [...] hemoglobin A1c goal of less than 8.0% ([facility]) Inject 46 Units under the skin daily. [...] Achilles tendinitis, right leg 04/08/2019 0 09/13/2021 [facility] resident 04/08/2019 05/02/2019 Ambulatory dysfunction 04/04/2019 2 Fall 04/04/2019 05/05/2020 Sprain of right ankle 04/04/2019 05/05/2020 Recurrent major depressive disorder, in partial remission 04/04/2019 11/08/2022 Overview: More recent Dx noted on PL Last Assessment & Plan: Seems very depressed about current situation. 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 if a residential plan is made -continue lexapro Generalized weakness [...] pain 01/24/2012 01/17/2017 Genetic Sleep Disorder Research Other*[id number] 05/13/2011 04/07/2016 Obstructive sleep apnea 01/18/2011 12/27/19 [...] (Prevnar) 05/02/2019 Pneumococcal Conjugate Vacci ne, 20-valent ([id number]) 10/21/2022 Pneumococcal Polysaccharide PPV23 (Pneumovax) 06/01/2010 Seasonal [...] encounter Miscellaneous Notes * Telephone Encounter - Rachel Tomlinson RN - 05/09/2023 10:44 AM EDT Called [facility] spoke with Shannan, she stated chest xray order was received and has been dispatched to a tech to complete. She could not confirm when it will be done. Rachel Tomlinson RN Director Custom [facility] * Telephone Encounter - Josh Main PA-C - 05/09/2023 10:30 AM EDT [facility] Phone Encounter [...] [facility] Telephonic Nurse Follow-Up Call [facility] Subprogram: Focused Care Management (3-9 months) Follow [...] then spoke with he will pick up attendant medications today and have patient start taking them as ordered. stated she is out of Mucinex, he will pick up attendant more of that medication too. Informed patient respiratory swab panel was NEGATIVE. Chest x-ray was not done yet and no one has called concerning same. I called [facility] spoke with Jennifer, she stated chest xray order was not received. Chest xray order, insurance and demographics faxed to the fax number Jennifer provided.[phone]. Called [facility] again, spoke with Marisa, she stated order is not in system yet, call back I about 30 minutes to confirm order transmitted. Disposition: [place]ed [place] [facility] and[place]or [facility] Care Team for further advice Future Visits Scheduled: Future Appointments-next 60 days Date/Time Provider Specialty Dept Phone 05/09/2023 9:30 AM [facility] [phone] 05/10/2023 9:30 AM [facility] [phone] 05/17/2023 2:00 PM [facility] Sp Pharmacist1 Pharmacy [phone] 05/17/2023 3:00 PM Chair 10 Hem Onc [facility] Hematology Oncology [phone] 05/19/2023 1:30 PM Monika Zamora [facility] Burial Needs Salesperson; ZAK Lara [facility] [phone] 05/22/2023 1:30 PM (Arrive by 1:15 PM) ZAK Bolton Gastroenterology [phone] 06/27/2023 1:45 PM (Arrive by 1:30 PM) Tono Sanchez MD Hematology Oncology [phone] 06/27/2023 2:20 PM [facility] Sp Pharmacist1 Pharmacy [phone] 07/13/2023 1:00 PM (Arrive by 12:45 PM) ZAK Rios Sleep Disorders [phone] 07/31/2023 1:20 PM (Arrive by 1:05 PM) Vanita Dunn MD Family Medicine [phone] 07/31/2023 2:20 PM Laboratory [facility] [phone] 09/05/2023 2:00 PM (Arrive by 1:45 PM) ZAK Rangel Cardiology [phone] 10/04/2023 4:00 PM (Arrive by 3:45 PM) Renetta Martinez MD Gynecology Obstetrics [phone] Rachel Tomlinson director of collectionsDirector Custom [facility] documented in this encounter Plan of Treatment Upcoming Encounters Date Type Specialty Care Team Description 05/10/2023 Scheduled Telephone [facility] Tower Director, [facility] [address] [place] [address] 05/17/2023 Office Visit Pharmacy Pharmacist1, [facility] Sp [address] [facility] [place] [address] 05/17/2023 Hem/Onc Treatment Hematology Oncology [place], Chair 10 Hem Onc Scenery [address] [facility] [place] [address] 05/19/2023 Telemedicine [facility] Joselin Dawson CRNP [address] [place] [address] Monika Zamora, [facility] [address] [place] [address] 05/22/2023 Office Visit Gastroenterology Lyssa Stout CRNP [address] [place] [address] 06/27/2023 Office Visit Hematology Oncology Tono Sanchez MD [address] [place] [address] 06/27/2023 Office Visit Pharmacy Pharmacist1, [facility] Sp [address] [place] [address] 07/13/2023 Office Visit Sleep Disorders Lanette Fields CRNP [address] [place] [address] 07/31/2023 Office Visit Family Medicine Vanita Dunn MD [address] [place] [address] 07/31/2023 Laboratory Laboratory [facility] [address] [place] [address] 09/05/2023 Office Visit Cardiology Quyen Canseco CRNP [address] [place] [address] 10/04/2023 Office Visit Gynecology Obstetrics Renetta Martinez MD [address] [place] [address] Scheduled Procedures Name Priority Associated Diagnoses Date/Ti [...] 06/01/2020, Additional history exists TSH 07/06/2023 07/06/2022, 090 04/2022, 06/10/2021, Additional history exists HbA1c 10/26/2023 04/25/2023, 2 04/2023, 05/19/2022, Additional history exists Mammogram 12/10/2023 12/09/2022, 08/13, 09/08/2020, Additional history exists GFR 02/02/2024 02/01/2023, 11/10, 08/30/2022, Additional history exists B-12 02/23/2024 02/22/2023, 0 01/2022, 07/06/2021, Additional history exists COLONOSCOPY-EVERY 5 YRS AGES 18-100 06/03/2025 06/03/2020, 06/03/2020, 03/17/2020, Additional history exists DTaP,Tdap,and Td Vaccines (3 - Td or Tdap) 05/01/2027 05/01/2017, 05/26/2008 Lipid Panel 02/23/2028 02/22/2023, 010 12/2021, 02/21/2020, Additional history exists Pap Smear [...] this encounter Medical Devices Implanted Type Area Architectural Engineer Device Identifier Shelf Expiration Date Model / Serial / Lot Microtech Sure Clip Implanted:Qty: 2 on 06/03/2020 by Janis Hatch DO at OR [facility] Clip N/A: Colon 04/21/2022 [facility]-F-26-2 35-C-R / / [id number] documented as of this encounter Advance Directives Documents on File Type Date Recorded Patient Pairer Odds Expl anation Advance Directives and Living Will 04/29/2021 ADVANCE DIRECTIVE / LIVING WILL LIVING WILL AND HEALTH CARE POA Power of Elevator Examiner And Adjuster 04/29/2021 POWER OF A [facility] [...] the patient have Health Care Power of Elevator Examiner And Adjuster? No Code Status History Code Status Date Activated Date Inactivated Comments Full Code 12/27/2021 2:50 PM 12/27/2021 8:02 PM This order reflects the patients wishes and were consensually agreed upon. Question Answer Comments Discussion of Advance Directives occurred with: Not Discussed Does the patient have a Living Will? No Does the patient have Health Care Power of Elevator Examiner And Adjuster? No Full Code 03/31/2021 8:57 PM 04/03/2021 [...] Syed Bustos Spouse Emergency Contact Care Teams Admin Secretary Relationship Specialty Start Date End Date Vanita Dunn MD [address], [place] [id number] PCP - General Family Medicine 03/16/21 documented as of this encounter
--- OUTSIDE RECORDS SUMMARY | 2023-05-10 16:34 | External Medical Summary | Summary of Care ---
Author Name Unknown Organization [facility] Address [address] [facility] [place] [address] Phone [phone] Care Team Providers Care Welt Wheeler Name Role Phone Vanita Dunn MD Primary Care Provid er Reason for Visit * Reason Onset Date Comments [facility]: Maintenance 05/09/2023 Encounter Details Date Type Department Care Team Description 05/09/2023 Scheduled Telephone [facility], [facility] [address] [facility] [place] [address] Coordinator, [facility] 132 [facility] [place] [address] Allergies Active Allergy Reactions Severity Noted Date Comments Adhesive Tape Itching 04/29/2020 Penicillins Rash 02/12/2008 Penicillin G 07/20/2018 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 documented as of this encounter (statuses as of 05/09/2023) Medications Medication Sig Dispensed Refills Start Date End Date Status nystatin (NYSTOP) 563553 UNIT/GM powder Apply topically to affected area 3 times a day. 60 g 1 10/16/2019 Active Dexcom G6 Cigar Sorter Device Use as directed. To test blood sugars 4 times a day Dx E11.9 1 Each 0 09/14/2020 Active Dexcom G6 Transmitter Use as directed. To test blood sugars 4 times a day. Change every 90 days. Dx E11.9 1 Each 3 09/14/2020 Active OneTouch Verio In Vitro Strip (Glucose Blood) TESTING once daily 100 Strip 3 10/29/2020 Active OneTouch Delica Plus [id number] TESTING once daily 100 Each 3 10/29/2020 [...] hemoglobin A1c goal of less than 7.0% ([facility]) USE TO INJECT INSULIN FOUR TIMES DAILY. [...] hemoglobin A1c goal of less than 8.0% ([facility]) 35 Units at breakfast, 45 Units before lunch, 82 Units before supper 150 mL 3 03/21/2023 Active Trulicity 4.5 MG/0.5ML Subcutaneous Solution Pen-injector (Dulaglutide)Indicat ions:Type 2 diabetes mellitus with hemoglobin A1c goal of less than 7.0% ([facility]) inject 4.5mg ( 1 pen) under skin [...] hemoglobin A1c goal of less than 8.0% ([facility]) Inject 46 Units under the skin daily. [...] Achilles tendinitis, right leg 04/08/2019 0 09/13/2021 custodial resident 04/08/2019 05/02/2019 Ambulatory dysfunction 04/04/2019 2 Fall 04/04/2019 05/05/2020 Sprain of right ankle 04/04/2019 05/05/2020 Recurrent major depressive disorder, in partial remission 04/04/2019 11/08/2022 Overview: More recent Dx noted on PL Last Assessment & Plan: Seems very depressed about current situation. 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 if a group home plan is made -continue lexapro Generalized weakness [...] pain 01/24/2012 01/17/2017 Genetic Sleep Disorder Research Other*[id number] 05/13/2011 04/07/2016 Obstructive sleep apnea 01/18/2011 12/27/19 [...] (Prevnar) 05/02/2019 Pneumococcal Conjugate Vacci ne, 20-valent ([id number]) 10/21/2022 Pneumococcal Polysaccharide PPV23 (Pneumovax) 06/01/2010 Seasonal [...] [facility] Telephonic Nurse Follow-Up [facility] Subprogram: Focused Care Management (3-9 months) Follow [...] pharmacy, I then spoke with he will picker and packer medications today and have patient start taking them as ordered. stated she is out of Mucinex, he will picker and packer more of that medication too. Informed patient respiratory swab panel was NEGATIVE. Chest x-ray was not done yet and no one has called concerning same. I called [facility] spoke with Jennifer, she stated chest xray order was not received. Chest xray order, insurance and demographics faxed to the fax number Jennifer provided.[phone]. Called [facility] again, spoke with Marisa, she stated order is not in system yet, call back I about 30 minutes to confirm order transmitted. Disposition: Routed to [facility] and/or [facility] at Home Care Team for further advice Future Visits Scheduled: Future Appointments-next 60 days Date/Time Provider Specialty Dept Phone 05/09[facility]2023 9[facility] [phone] 05/10/2023 9:30 AM [facility] [phone] 05/17/2023 2:00 PM [facility] Sp Pharmacist1 Pharmacy [phone] 05/17/2023 3:[address] [facility] Onc [facility] Hematology Oncology [phone] 05/19/2023 1:30 PM Monika Zamora [facility] Office Rn; ZAK Lara [facility] [phone] 05/22/2023 1:30 PM (Arrive by 1:15 PM) ZAK Bolton Gastroenterology [phone] 06/27/2023 1:45 PM (Arrive by 1:30 PM) Tono Sanchez MD Hematology Oncology [phone] 06/27/2023 2:20 PM [facility] Sp Pharmacist1 Pharmacy [phone] 07/13/2023 1:00 PM (Arrive by 12:45 PM) ZAK Rios Sleep Disorders [phone] 07/31/2023 1:20 PM (Arrive by 1:05 PM) Vanita Dunn MD Family Medicine [phone] 07/31/2023 2:20 PM Laboratory [facility] [phone] 09/05/2023 2:00 PM (Arrive by 1:45 PM) ZAK Rangel Cardiology [phone] 10/04/2023 4:00 PM (Arrive by 3:45 PM) Renetta Martinez MD Gynecology Obstetrics [phone] Rachel Tomlinson enrollment clerkFire Extinguisher Repairer [facility] documented in this encounter Plan of Treatment Upcoming Encounters Date Type Specialty Care Team Description 05/10/2023 Scheduled Telephone [facility]using Furnace Loader, [facility] [place] [address] 05/17/2023 Office Visit Pharmacy Pharmacist1, [facility] [address] [place] [address] 05/17/2023 Hem/Onc Treatment Hematology Oncology [place], Chair 10 Hem Onc Scenery [address] [place] [address] 05/19/2023 Telemedicine [facility] Joselin Dawson CRNP [address] [place] [address] Monika Zamora, [facility] [address] [place] [address] 05/22/2023 Office Visit Gastroenterology yLssa Stout CRNP [address] [place] [address] 06/27/2023 Office Visit Hematology Oncology Tono Sanchez MD [address] [place] [address] 06/27/2023 Office Visit Pharmacy Pharmacist1, [facility] [address] [place] [address] 07/13/2023 Office Visit Sleep Disorders Lanette Fields CRNP [address] [place] [address] 07/31/2023 Office Visit Family Medicine MonaVanita MD [address] [place] [address] 07/31/2023 Laboratory Laboratory [facility] [address] [place] [address] 09/05/2023 Office Visit Cardiology Quyen Canseco CRNP [address] [place] [address] 10/04/2023 Office Visit Gynecology Obstetrics Renetta Martinez MD [address] [place] [address] Scheduled Procedures Name Priority Associated Diagnoses Date/Ti [...] 06/01/2020, Additional history exists TSH 07/06/2023 07/06/2022, 09/0 04/2022, 06/10/2021, Additional history exists HbA1c 10/26/2023 04/25/2023, 2 04/2023, 05/19/2022, Additional history exists Mammogram 12/10/2023 12/09/2022, 08/13, 09/08/2020, Additional history exists GFR 02/02/2024 02/01/2023, 11/10, 08/30/2022, Additional history exists B-12 02/23/2024 02/22/2023, 01/0 01/2022, 07/06/2021, Additional history exists COLONOSCOPY-EVERY 5 [...] this encounter Medical Devices Implanted Type Area Occupational Health Physiotherapist Device Identifier Shelf Expiration Date Model / Serial / Lot Microtech Sure Clip Implanted:Qty: 2 on 06/03/2020 by Janis Hatch DO at OR [facility] Clip N/A: Colon 04/21/2022 [facility]-F-26-2 35-C-R / / [id number] documented as of this encounter Advance Directives Documents on File Type Date Recorded Patient Sound Mixer Expl anation Advance Directives and Living Will 04/29/2021 ADVANCE DIRECTIVE / LIVING WILL LIVING WILL AND HEALTH CARE POA Power of Inker And Opaquer 04/29/2021 [facility] [...] the patient have Health Care Power of Inker And Opaquer? No Code Status History Code Status Date Activated Date Inactivated Comments Full Code 12/27/2021 2:50 PM 12/27/2021 8:02 PM This order reflects the patients wishes and were consensually agreed upon. Question Answer Comments Discussion of Advance Directives occurred with: Not Discussed Does the patient have a Living Will? No Does the patient have Health Care Power of Inker And Opaquer? No Full Code 03/31/2021 8:57 PM 04/03/2021 [...] Agents on File Name Relationship Healthcare Agent [facility] p Communication Syed Bustos Spouse Emergency Contact Care Teams Welt Wheeler Relationship Specialty Start Date End Date Vanita Dunn MD [address] [place] [facility] [place] [address] PCP - General Family Medicine 03/16/21 documented as of this encounter
--- OUTSIDE RECORDS SUMMARY | 2023-05-10 16:35 | External Medical Summary | Summary of Care ---
Author Name Unknown Organization [facility] Address [address] [facility] [place] [address] Phone [phone] Care Team Providers Care Tank Pumper Panelboard Name Role Phone Vanita Dunn MD Primary Care Provid er Reason for Visit * Reason Comments [facility]: Acute Encounter Details Date Type Department Care Team Description 2023 Home Visit [facility], [facility] [address] [place] [address] July Poe, RN [address] [place] [address] Restrictive lung disease* Allergies Active Allergy Reactions Severity Noted Date Comments Adhesive Tape Itching 04/29/2020 Penicillins Rash 02/12/2008 Penicillin G 07/20/2018 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 documented as of this encounter (statuses as of 2023) Medications Medication Sig Dispensed Refills Start Date End Date Status nystatin (NYSTOP) 952511 UNIT/GM powder Apply topically to affected area 3 times a day. 60 g 1 10/16/2019 Active Dexcom G6 Pan Shover Device Use as directed. To test blood sugars 4 times a day Dx E11.9 1 Each 0 09/14/2020 Active Dexcom G6 Transmitter Use as directed. To test blood sugars 4 times a day. Change every 90 days. Dx E11.9 1 Each 3 09/14/2020 Active OneTouch Verio In Vitro Strip (Glucose Blood) TESTING once daily 100 Strip 3 10/29/2020 Active OneTouch Delica Plus [id number] TESTING once daily 100 Each 3 10/29/2020 [...] hemoglobin A1c goal of less than 7.0% ([facility]) USE TO INJECT INSULIN FOUR [...] hemoglobin A1c goal of less than 8.0% ([facility]) 35 Units at breakfast, 45 Units before lunch, 82 Units before supper 150 mL 3 03/21/2023 Active Trulicity 4.5 MG/0.5ML Subcutaneous Solution Pen-injector (Dulaglutide)Indicat ions:Type 2 diabetes mellitus with hemoglobin A1c goal of less than 7.0% ([facility]) inject 4.5mg ( 1 pen) [...] hemoglobin A1c goal of less than 8.0% ([facility]) Inject 46 Units under the [...] as of this encounter (statuses as of 2023) Active Problems Problem Noted Date Thrombocytopenia 01/17/2023 [...] as of this encounter (statuses as of 2023) Resolved Problems Problem Noted Date Resolved Date [...] pancreas 02/15/2021 10/01/2021 AMS (altered mental status) 02/04/202101/10 Cardiomegaly 01/30/2021 09/13/2021 SOB (shortness of breath) [...] Achilles tendinitis, right leg 04/08/2019 0 09/13/2021 detention resident 04/08/2019 05/02/2019 Ambulatory dysfunction 04/04/2019 2 Fall 04/04/2019 05/05/2020 Sprain of right ankle 04/04/2019 05/05/2020 Recurrent major depressive disorder, in partial remission 04/04/2019 11/08/2022 Overview: More recent Dx noted on PL Last Assessment & Plan: Seems very depressed about current situation. 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 if a halfway plan is made -continue lexapro Generalized weakness [...] > 40) 10/28/2013 01/17/2017 Overview: bmi= 53.93 10/28/13 Sleep disturbance 05/21/2013 03/28/2017 Insect bites 04/19/2013 [...] pain 01/24/2012 01/17/2017 Genetic Sleep Disorder Research Other*[id number] 05/13/2011 04/07/2016 Obstructive sleep apnea 01/18/2011 12/27/19 [...] as of this encounter (statuses as of 2023) Immunizations Name Administration Dates Next Due COVID-19 mRNA, LNP-s, No Pre serve, 2-Dose Series (Moderna) 01/05/2022,07/26/2021,12/21/2020,11/09 HEP A - Hepatitis A (Adult > 18 yrs) 09/24/2018, 03/26/2018 Hepatitis B, 20+ yrs 09/24/2018,04/23/2018,03/26 Pneumococcal Conjugate Vacc, 13 Valent (Prevnar) 05/02/2019 Pneumococcal Conjugate Vacci ne, 20-valent ([id number]) 10/21/2022 Pneumococcal Polysaccharide PPV23 (Pneumovax) 06/01/2010 Seasonal [...] on file documented as of this encounter Last Filed Vital Signs Vital Sign Reading Time Taken Comments Blood Pressure 102/62 2023 12:29 PM EDT Pulse 64 2023 12:29 PM EDT Temperature 36.3 C (97.4 F) 2023 12:29 PM E DT Respiratory Rate 20 2023 12:29 PM EDT Oxygen Saturation 96% 2023 12:29 PM EDT Inhaled Oxygen Concentration - - Weight - - Height - - Body Mass Index - - documented in this encounter Functional Status Functional Status Response [...] No 03/31/2021 documented as of this encounter Progress Notes * Lam Carroll MD - 2023 12:49 PM EDT Collaborated with July during her visit. History of interstitial lung disease, heart failure Cough, rhonchi. Unable to expectorate sputum Recommend: Mucinex per package instructions Adequate fluid Albuterol nebulized every 6 hours +every 3 hours as needed Presumptive treatment with doxycycline and prednisone Chest x-ray Respiratory panel Follow-up call tomorrow Call us if symptoms worsen Lam Carroll MD, [facility] [place], FAAFP [employer] ([facility]) Chance at Available on Intela * July Poe RN - 2023 10:32 AM EDT [facility] Brand Marketing CoordinatorStopper Setter Visit Date: 2023 Time: 10:33 AM Name: Shaina Bustos : 1955 Current Concerns: Communication Note Name: Shaina Bustos Situation: Pt called in yesterday to report increased cough, sore throat, and generally not feelingwell States it started 3 days ago Has been using nebulizer more and taking mucinex Background: 68 y/o female with Cerebral Palsy, Cirrhosis of the liver, obstructive lung disease, HTN, CHF, iron def anermia, THAD on CPAP, DM Assessment: + frequent cough and congestion - unable to expectorate mucus Lungs with rhonci throughout Wearing CPAP at HS Aferile Denies dizziness , headaches + poor appetite No loss of taste or smell BP 102/62 | Pulse 64 | Temp 36.3 C (97.4 F) | Resp 20 | SpO2 96% Recommendation: TT to [facility] Use albuterol neb at lease every 6 hours routinely and could use every 3 hours if feeling worse Use Mucinex twice daily Obtain respiratory pathogen panel CXR ordered Sending script in for Doxycycline and prenisone Problems/Symptoms: Review of Systems HENT: Positive for congestion and sore throat. Respiratory: Positive for cough. Cardiovascular: Positive for leg swelling (+1 BLE - baseline). Gastrointestinal: Negative. Physical Exam: BP 102/62 | Pulse 64 | Temp 36.3 C (97.4 F) | Resp 20 | SpO2 96% Pain 0 Physical Exam Constitutional: Appearance: She is ill-appearing. Cardiovascular: Rate and Rhythm: Normal rate and regular rhythm. Pulses: Normal pulses. Heart sounds: Normal heart sounds. Pulmonary: Effort: Pulmonary effort is normal. Breath sounds: Rhonchi (throughout all tuttle) present. Abdominal: General: Bowel sounds are normal. Palpations: Abdomen is soft. Neurological: Mental Status: She is alert. Mental status is at baseline. [facility] Completed this Visit: Yes. [facility]: Reason Completed: Status post acute event/change in baseline [facility]-10 Interventions: Fall education provided, reviewed/provided Fall brochure Treatment/Plan: Use albuterol neb at lease every 6 hours routinely and could use every 3 hours if feeling worse Use Mucinex twice daily Obtain respiratory pathogen panel - [place] to [facility] CXR ordered Sending script in for Doxycycline and prenisone Home Interventions Provided: Labs/Specimen Collection Performed Resp pathogen panel Lab/Imaging Ordered CR Home Intervention: Other; evaluation Consulted PCP/Specialist Reinforced current Plan of Care, including self-management and medication regimen Patient's 'Red Flags': Increased SOB Change in mental status, sleeping more Pulse ox <90% Patient Needs to Remember: Call [facility] at with any new or worsening health concerns or problems, red flag symptoms. Referrals Needed: Other none Follow Up: Is there cellular connectivity/connectivity in the home? Yes Does the patient have internet in the home? No Patient encouraged to call the intake phone number for all urgent but not emergent issues. Scheduled to follow up with patient in 24 and 48 hrs. July Poe RN 2023 10:33 AM documented in this encounter Plan of Treatment Upcoming Encounters Date Type Specialty Care Team Description 2023 [facility] [address] [place] [address] Restrictive lung disease 05/09/2023 Scheduled Telephone [facility] Country Director, [facility] [address] [facility] [place] [address] 05/10/2023 Scheduled Telephone [facility] Country Director, [facility] [address] [facility] [place] [address] 05/17/2023 Office Visit Pharmacy Pharmacist1, [facility] [address] [place] [address] 05/17/2023 Hem/Onc Treatment Hematology Oncology [place], Chair 10 Hem Onc [facility] [address] [facility] [place] [address] 05/19/2023 Telemedicine [facility] Joselin Dawson CRNP [address] [place] [address] Monika Zamora [address] [place] [address] 05/22/2023 Office Visit Gastroenterology Lyssa Stout CRNP [address] [place] [address] 06/27/2023 Office Visit Hematology Oncology Tono Sanchez MD [address] [facility] [place] [address] 06/27/2023 Office Visit [facility] Pharmacist1, [facility] [address] 07/13/2023 Office Visit Sleep Disorders Lanette Fields CRNP [address] [place] [address] 07/31/2023 Office Visit Family Medicine Vanita Dunn MD [address] [place] [address] 07/31/2023 Laboratory Laboratory [facility] [address] [place] [address] 09/05/2023 Office Visit Cardiology Quyen Canseco CRNP [address] [place] [address] 10/04/2023 Office Visit Gynecology Obstetrics Renetta Martinez MD [address] [place] [address] Pending Results Name Type Priority Associated Diagnoses Date /Time RESPIRATORY PATHOGEN PANEL, PCR Lab Routine Restrictive lung disease 2023 1:15 PM EDT Scheduled Orders Name Type Priority Associated Diagnoses Orde r Schedule XR CHEST 2 VIEWS Medical Imaging STAT Restrictive lung disease Ordered: 2023 RESPIRATORY PATHOGEN PANEL, PCR Lab Routine Restrictive lung disease Expected: 2023 (Approximate), Expires: 05/07/2024 Scheduled Procedures Name Priority Associated Diagnoses Date/Ti [...] 06/10/2021, Additional history exists HbA1c 10/26/2023 04/25/2023, 03/2 04/2023, 05/19/2022, Additional history exists Mammogram 12/10/2023 12/09/2022, 08/13, 09/08/2020, Additional history exists GFR 02/02/2024 02/01/2023, 11/10, 08/30/2022, Additional history exists B-12 02/23/2024 02/22/2023, 0 01/2022, 07/06/2021, Additional history exists COLONOSCOPY-EVERY 5 YRS AGES 18-100 06/03/2025 06/03/2020, 06/03/2020, 03/17/2020, Additional history exists DTaP,Tdap,and Td Vaccines (3 - Td or Tdap) 05/01/2027 05/01/2017, 05/26/2008 Lipid Panel 02/23/2028 02/22/2023, 0 12/2021, 02/21/2020, Additional history exists Pap Smear [...] this encounter Medical Devices Implanted Type Area Technician Automated Equipment Device Identifier Shelf Expiration Date Model / Serial / Lot Microtech Sure Clip Implanted:Qty: 2 on 06/03/2020 by Janis Hatch DO at OR [facility] Clip N/A: Colon 04/21/2022 [facility]-F-26-2 35-C-R / / [id number] documented as of this encounter Visit Diagnoses Diagnosis Restrictive lung disease- Primary Other diseases of lung, not elsewhere classified Restrictive lung disease Other diseases of lung, not elsewhere classified documented in this encounter Additional Health Concerns Infection Onset Date Last Indicated Resolved Time Respiratory Rule-Out 2023 2023 documented as of this encounter Advance Directives Documents on File Type Date Recorded Patient Credit Control Manager Expl anation Advance Directives and Living Will 04/29/2021 ADVANCE DIRECTIVE / LIVING WILL LIVING WILL AND HEALTH CARE POA Power of International Student Counselor 04/29/2021 [facility]OWER [facility] A [facility] [...] the patient have Health Care Power of International Student Counselor? No Code Status History Code Status Date Activated Date Inactivated Comments Full Code 12/27/2021 2:50 PM 12/27/2021 8:02 PM This order reflects the patients wishes and were consensually agreed upon. Question Answer Comments Discussion of Advance Directives occurred with: Not Discussed Does the patient have a Living Will? No Does the patient have Health Care Power of International Student Counselor? No Full Code 03/31/2021 8:57 PM 04/03/2021 [...] Agents on File Name Relationship [facility] Communication Syed Bustos Spouse Emergency Contact Care Teams Tank Pumper Panelboard Relationship Specialty Start Date End Date Vanita Dunn MD [address] [place] [facility] [place] [address] PCP - General Family Medicine 03/16/21 documented as of this encounter
--- OUTSIDE RECORDS SUMMARY | 2023-05-10 16:35 | External Medical Summary | Summary of Care ---
Author Name Unknown Organization [facility] Address [address] [facility] [place] [address] Phone [phone] Care Team Providers Care Department Supervisor Name Role Phone Vanita Dunn MD Primary Care Provid er Reason for Visit * Reason Comments [facility]: Acute Encounter Details Date Type Department Care Team Description 2023 Home Visit [facility], [facility] [address] [place] [address] July Poe, RN [address] [place] [address] Restrictive lung disease* Allergies Active Allergy Reactions Severity Noted Date Comments Adhesive Tape Itching 04/29/2020 Penicillins Rash 02/12/2008 Penicillin G 07/20/2018 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 documented as of this encounter (statuses as of 2023) Medications Medication Sig Dispensed Refills Start Date End Date Status nystatin (NYSTOP) 722997 UNIT/GM powder Apply topically to affected area 3 times a day. 60 g 1 10/16/2019 Active Dexcom G6 Bindery Chief Device Use as directed. To test blood sugars 4 times a day Dx E11.9 1 Each 0 09/14/2020 Active Dexcom G6 Transmitter Use as directed. To test blood sugars 4 times a day. Change every 90 days. Dx E11.9 1 Each 3 09/14/2020 Active OneTouch Verio In Vitro Strip (Glucose Blood) TESTING once daily 100 Strip 3 10/29/2020 Active OneTouch Delica Plus [id number] TESTING once daily 100 Each 3 10/29/2020 [...] hemoglobin A1c goal of less than 7.0% ([facility]) USE TO INJECT INSULIN FOUR TIMES DAILY. [...] hemoglobin A1c goal of less than 8.0% ([facility]) 35 Units at breakfast, 45 Units before lunch, 82 Units before supper 150 mL 3 03/21/2023 Active Trulicity 4.5 MG/0.5ML Subcutaneous Solution Pen-injector (Dulaglutide)Indicat ions:Type 2 diabetes mellitus with hemoglobin A1c goal of less than 7.0% ([facility]) inject 4.5mg ( 1 pen) under skin [...] hemoglobin A1c goal of less than 8.0% ([facility]) Inject 46 Units under the skin daily. [...] Appears euvolemic today. Not on a beta-jose carlso or an Zay. Could be due to [...] Achilles tendinitis, right leg 04/08/2019 0 09/13/2021 long term resident 04/08/2019 05/02/2019 Ambulatory dysfunction 04/04/2019 2 Fall 04/04/2019 05/05/2020 Sprain of right ankle 04/04/2019 05/05/2020 Recurrent major depressive disorder, in partial remission 04/04/2019 11/08/2022 Overview: More recent Dx noted on PL Last Assessment & Plan: Seems very depressed about current situation. 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 if a skilled nursing plan is made -continue lexapro Generalized weakness [...] pain 01/24/2012 01/17/2017 Genetic Sleep Disorder Research Other*[id number] 05/13/2011 04/07/2016 Obstructive sleep apnea 01/18/2011 12/27/19 [...] (Prevnar) 05/02/2019 Pneumococcal Conjugate Vacci ne, 20-valent ([id number]) 10/21/2022 Pneumococcal Polysaccharide PPV23 (Pneumovax) 06/01/2010 Seasonal [...] us if symptoms worsen Lam Carroll MD, [facility] [place], FAAFP [employer] ([facility]) Chance at Available on XGIMI * July Poe RN - 2023 10:32 AM EDT [facility] [employer]aser[employer] Telecommunicator Visit Date: 2023 Time: 10:33 AM Name: [...] 20 | SpO2 96% Recommendation: TT to [facility] Use albuterol neb at lease every 6 [...] is alert. Mental status is at baseline. [facility] Completed this Visit: Yes. [facility]: Reason Completed: Status post acute event/change in baseline [facility]-10 Interventions: Fall education provided, reviewed/provided Fall brochure Treatment/Plan: Use albuterol neb at lease every 6 hours routinely and could use every 3 hours if feeling worse Use Mucinex twice daily Obtain respiratory pathogen panel - taken to [facility] ordered Sending script in for Doxycycline and prenisone Home Interventions Provided: Labs/Specimen Collection Performed Resp pathogen panel Lab/Imaging Ordered CR Home Intervention: Other; evaluation Consulted PCP/Specialist Reinforced current Plan of Care, including self-management and medication regimen Patient's 'Red Flags': Increased SOB Change in mental status, sleeping more Pulse ox <90% Patient Needs to Remember: Call [facility] at with any new or worsening [...] Specialty Care Team Description 2023 [facility] [address] [place] [address] Restrictive lung disease 05/09/2023 Scheduled Telephone [facility], [facility] [address] [facility] [place] [address] 05/10/2023 Scheduled Telephone [facility], [facility] [address] [facility] [place] [address] 05/17/2023 Office Visit Pharmacy Pharmacist1, [facility] [address] [place] [address] 05/17/2023 Hem/Onc Treatment [facility] [place], Chair 10 Hem Onc [facility] [address] [facility] [place] [address] 05/19/2023 Telemedicine [facility] Joselin Dawson CRNP [address] [place] [address] Monika Zamora [address] [place] [address] 05/22/2023 Office Visit Gastroenterology Lyssa Stout CRNP [address] [place] [address] 06/27/2023 Office Visit Hematology Oncology Tono Sanchez MD [address] [facility] [place] [address] 06/27/2023 Office Visit [facility] Pharmacist1[facility] [address] 07/13/2023 Office Visit Sleep Disorders Lanette Fields CRNP [address] [place] [address] 07/31/2023 Office Visit Family Medicine Vanita Dunn MD [address] [place] [address] 07/31/2023 Laboratory Laboratory [facility] [address] [place] [address] 09/05/2023 Office Visit Cardiology Quyen Canseco CRNP [address] [place] [address] 10/04/2023 Office Visit Gynecology Obstetrics Renetta Martinez MD [address] [place] [address] Pending Results Name Type Priority Associated Diagnoses [...] this encounter Medical Devices Implanted Type Area Farm Laborer Device Identifier Shelf Expiration Date Model / Serial / Lot Microtech Sure Clip Implanted:Qty: 2 on 06/03/2020 by Janis Hatch DO at OR [facility] Clip N/A: Colon 04/21/2022 [facility]-F-26-2 35-C-R / / [id number] documented as of this encounter Visit Diagnoses Diagnosis Restrictive lung disease- Primary Other diseases of lung, not elsewhere classified Restrictive lung disease Other diseases of lung, not elsewhere classified documented in this encounter Additional Health Concerns Infection Onset Date Last Indicated Resolved Time Respiratory Rule-Out 2023 2023 documented as of this encounter Advance Directives Documents on File Type Date Recorded Patient Print Cutter Expl anation Advance Directives and Living Will 04/29/2021 ADVANCE DIRECTIVE / LIVING WILL LIVING WILL AND HEALTH CARE POA Power of Business Librarian 04/29/2021 [facility] [...] the patient have Health Care Power of Business Librarian? No Code Status History Code Status Date Activated Date Inactivated Comments Full Code 12/27/2021 2:50 PM 12/27/2021 8:02 PM This order reflects the patients wishes and were consensually agreed upon. Question Answer Comments Discussion of Advance Directives occurred with: Not Discussed Does the patient have a Living Will? No Does the patient have Health Care Power of Business Librarian? No Full Code 03/31/2021 8:57 PM 04/03/2021 [...] Agents on File Name Relationship [facility] Syed Bustos Spouse Emergency Contact Care Teams Department Supervisor Relationship Specialty Start Date End Date Vanita Dunn MD [address] [place] [facility] [place] [address] PCP - General Family Medicine 03/16/21 documented as of this encounter
--- OUTSIDE RECORDS SUMMARY | 2023-05-10 16:35 | External Medical Summary | Summary of Care ---
Author Name Unknown Organization [facility] Address [address] [facility] [place] [address] Phone [phone] Care Team Providers Care Cashiers Bussers Food Runners Name Role Phone Vanita Dunn MD Primary Care Provid er Reason for Visit * Reason Comments Outpatient Testing Encounter Details Date Type Department Care Team Description 2023 Laboratory Laboratory, [place] [address] [place] [address] [place], Laboratory [address] [place] [address] Restrictive lung disease Allergies Active Allergy Reactions Severity Noted Date Comments Adhesive Tape Itching 04/29/2020 Penicillins Rash 02/12/2008 Penicillin G 07/20/2018 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 documented as of this encounter (statuses as of 2023) Medications Medication Sig Dispensed Refills Start Date End Date Status nystatin (NYSTOP) 717264 UNIT/GM powder Apply topically to affected area 3 times a day. 60 g 1 10/16/2019 Active Dexcom G6 Application Security Specialist Device Use as directed. To test blood sugars 4 times a day Dx E11.9 1 Each 0 09/14/2020 Active Dexcom G6 Transmitter Use as directed. To test blood sugars 4 times a day. Change every 90 days. Dx E11.9 1 Each 3 09/14/2020 Active OneTouch Verio In Vitro Strip (Glucose Blood) TESTING once daily 100 Strip 3 10/29/2020 Active OneTouch Delica Plus [id number] TESTING once daily 100 Each 3 10/29/2020 [...] hemoglobin A1c goal of less than 7.0% ([facility]) USE TO INJECT INSULIN FOUR TIMES DAILY. [...] hemoglobin A1c goal of less than 8.0% ([facility]) 35 Units at breakfast, 45 Units before lunch, 82 Units before supper 150 mL 3 03/21/2023 Active Trulicity 4.5 MG/0.5ML Subcutaneous Solution Pen-injector (Dulaglutide)Indicat ions:Type 2 diabetes mellitus with hemoglobin A1c goal of less than 7.0% ([facility]) inject 4.5mg ( 1 pen) under skin [...] hemoglobin A1c goal of less than 8.0% ([facility]) Inject 46 Units under the skin daily. [...] pain 01/24/2012 01/17/2017 Genetic Sleep Disorder Research Other*[id number] 05/13/2011 04/07/2016 Obstructive sleep apnea 01/18/2011 12/27/19 [...] (Prevnar) 05/02/2019 Pneumococcal Conjugate Vacci ne, 20-valent ([id number]) 10/21/2022 Pneumococcal Polysaccharide PPV23 (Pneumovax) 06/01/2010 Seasonal [...] No 03/31/2021 documented as of this encounter Plan of Treatment Upcoming Encounters Date Type Specialty Care Team Description 05/17/2023 Office Visit Pharmacy Pharmacist1, [facility] [address] [facility] [place] [address] 05/17/2023 Hem/Onc Treatment H[facility]ology [facility] [place], Chair 10 Hem Onc [facility] [address] [facility] [place] [address] 05/19/2023 Telemedicine [facility] Joselin Dawson CRNP [address] [place] [address] Monika Zamora, Community [facility] Senior Environmental Practice Leader [address] [place] [address] [place] [address] 05/22/2023 Office Visit Gastroenterology Lyssa Stout CRNP [address] [place] [address] 06/27/2023 Office Visit Hematology Oncology Tono Sanchez MD [address] [place] [address] 06/27/2023 Office Visit Pharmacy Pharmacist1, [facility] [address] [facility] [place] [address] 07/13/2023 Office Visit Sleep Disorders Lanette Fields CRNP [address] [place] [address] 07/31/2023 Office Visit Family Medicine Vanita Dunn MD [address] [place] [address] 07/31/2023 Laboratory Laboratory [facility] [address] [place] [address] 09/05/2023 Office Visit Cardiology Quyen Canseco CRNP [address] [place] [address] 10/04/2023 Office Visit Gynecology Obstetrics Renetta Martinez MD [address] [place] [address] Pending Results Name Type Priority Associated Diagnoses Date /Time RESPIRATORY PATHOGEN PANEL, PCR Lab Routine Restrictive lung disease 2023 1:15 PM EDT Scheduled Procedures Name Priority Associated Diagnoses Date/Ti me ESOPHAGOGASTRODUODENOSCOPY ( EGD), FLEXIBLE, TRANSORAL, DIAGNOSTIC Recall Esophagitis COLONOSCOPY FLEXIBLE PROXIMAL DIAGNOSTIC Recall History of colonic polyps Health Maintenance Due Date Last Done Comments DXA Scan 1955 DIABETES-EYE EXAM 06/12/2019 06/12/2018, , 06/12/2018, Additional history exists Zoster Vaccines (3 of 3) 06/23/2020 04/28/2020, 03/3 Depression Screening, Annual for Pts 12 and [...] this encounter Medical Devices Implanted Type Area Cabinetmaker Helper Device Identifier Shelf Expiration Date Model / Serial / Lot Microtech Sure Clip Implanted:Qty: 2 on 06/03/2020 by Janis Hatch, DO at OR [facility] Clip N/A: Colon 04/21/2022 [facility]-F-26-2 35-C-R / / [id number] documented as of this encounter Visit Diagnoses Diagnosis Restrictive lung disease Other diseases of lung, not elsewhere classified documented in this encounter Additional Health Concerns Infection Onset Date Last Indicated Resolved Time Respiratory Rule-Out 2023 2023 documented as of this encounter Advance Directives Documents on File Type Date Recorded Patient Language Teacher Expl anation Advance Directives and Living Will 04/29/2021 ADVANCE DIRECTIVE / LIVING WILL LIVING WILL AND HEALTH CARE POA Power of Local Hazmat Driver 04/29/2021 [facility] [...] the patient have Health Care Power of Local Hazmat Driver? No Code Status History Code Status Date Activated Date Inactivated Comments Full Code 12/27/2021 2:50 PM 12/27/2021 8:02 PM This order reflects the patients wishes and were consensually agreed upon. Question Answer Comments Discussion of Advance Directives occurred with: Not Discussed Does the patient have a Living Will? No Does the patient have Health Care Power of Local Hazmat Driver? No Full Code 03/31/2021 8:57 PM 04/03/2021 [...] Agents on File Name Relationship Healthcare Agent [facility] p Communication Syed Bustos Spouse Emergency Contact Care Teams Cashiers Bussers Food Runners Relationship Specialty Start Date End Date Vanita Dunn MD [address] [place] [facility] [place] [address] PCP - General Family Medicine 03/16/21 documented as of this encounter
--- OUTSIDE RECORDS SUMMARY | 2023-05-10 16:35 | External Medical Summary | Summary of Care ---
Author Name Unknown Organization [facility] Address [address] [facility] [place] [address] Phone [phone] Care Team Providers Care Housecleaner Floor Name Role Phone Vanita Dunn MD Primary Care Provid er Reason for Visit * Reason Onset Date Comments [facility]: Acute 05/07/2023 Encounter Details Date Type Department Care Team Description 05/07/2023 Scheduled Telephone [facility], [facility] [address] [place] [address] [facility], Nurse [facility] [address] [place] [address] Allergies Active Allergy Reactions Severity Noted Date Comments Adhesive Tape Itching 04/29/2020 Penicillins Rash 02/12/2008 Penicillin G 07/20/2018 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 documented as of this encounter (statuses as of 05/07/2023) Medications Medication Sig Dispensed Refills Start Date End Date Status nystatin (NYSTOP) 860998 UNIT/GM powder Apply topically to affected area 3 times a day. 60 g 1 10/16/2019 Active Dexcom G6 Oiler Bander Device Use as directed. To test blood sugars 4 times a day Dx E11.9 1 Each 0 09/14/2020 Active Dexcom G6 Transmitter Use as directed. To test blood sugars 4 times a day. Change every 90 days. Dx E11.9 1 Each 3 09/14/2020 Active OneTouch Verio In Vitro Strip (Glucose Blood) TESTING once daily 100 Strip 3 10/29/2020 Active OneTouch Delica Plus [id number] TESTING once daily 100 Each 3 10/29/2020 [...] hemoglobin A1c goal of less than 7.0% ([facility]) USE TO INJECT INSULIN FOUR [...] hemoglobin A1c goal of less than 8.0% ([facility]) 35 Units at breakfast, 45 Units before lunch, 82 Units before supper 150 mL 3 03/21/2023 Active Trulicity 4.5 MG/0.5ML Subcutaneous Solution Pen-injector (Dulaglutide)Indicat ions:Type 2 diabetes mellitus with hemoglobin A1c goal of less than 7.0% ([facility]) inject 4.5mg ( 1 pen) [...] hemoglobin A1c goal of less than 8.0% ([facility]) Inject 46 Units under the skin daily. 45 mL 3 05/01/2023 Active Nitroglycerin 0.4 MG Sublingual Tablet Sublingual (Nitrostat) PLACE 1 TABLET UNDER THE TONGUE EVERY 5 MINUTES, NEEDED FOR CHEST PAIN. UP TO 3 DOSES IN 15 MINUTES. 25 Tablet 11 05/04/2023 Active Hospital, Clinic, or Other Facility Administered [...] as of this encounter (statuses as of 05/07/2023) Active Problems Problem Noted Date Thrombocytopenia 01/17/2023 [...] as of this encounter (statuses as of 05/07/2023) Resolved Problems Problem Noted Date Resolved Date [...] 02/15/2021 10/01/2021 AMS (altered mental status) 02/04/2021 05/2 05/2021 Cardiomegaly 01/30/2021 09/13/2021 SOB (shortness of breath) [...] Achilles tendinitis, right leg 04/08/2019 0 09/13/2021 intermediate resident 04/08/2019 05/02/2019 Ambulatory dysfunction 04/04/2019 2 Fall 04/04/2019 05/05/2020 Sprain of right ankle 04/04/2019 05/05/2020 Recurrent major depressive disorder, in partial remission 04/04/2019 11/08/2022 Overview: More recent Dx noted on PL Last Assessment & Plan: Seems very depressed about current situation. 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 if a medical terminologist plan is made -continue lexapro Generalized weakness [...] pain 01/24/2012 01/17/2017 Genetic Sleep Disorder Research Other*[id number] 05/13/2011 04/07/2016 Obstructive sleep apnea 01/18/2011 12/27/19 [...] as of this encounter (statuses as of 05/07/2023) Immunizations Name Administration Dates Next Due COVID-19 mRNA, LNP-s, No Pre serve, 2-Dose Series (Moderna) 01/05/2022,07/26/2021,12/21/2020,11/09 HEP A - Hepatitis A (Adult > 18 yrs) 09/24/2018, 03/26/2018 Hepatitis B, 20+ yrs 09/24/2018,04/23/2018,03/26 Pneumococcal Conjugate Vacc, 13 Valent (Prevnar) 05/02/2019 Pneumococcal Conjugate Vacci ne, 20-valent ([id number]) 10/21/2022 Pneumococcal Polysaccharide PPV23 (Pneumovax) 06/01/2010 Seasonal Influenza, PF, 6 mo ns & Above, IM , (Flulaval) 06/01/2020,06/05/2019,05/16/2018,06/1306/05/2020 Seasonal Influenza, Quadriva lent Hd (Fluzone Hd) 07/28/2022,06/10/2021 Seasonal Influenza, Quadriva lent, No Preserve, IM 06/07/2016 Seasonal Influenza, Split, I IV3, With Preserve, Inj 05/22/2015,05/29/2014,07/25/2013,05/12,06/02/2011,06/01/2010,06/04/20,08/18/2008 05/22/2016 TDAP (age 10 and older)(Boostrix) 05/01/2017 [...] encounter Miscellaneous Notes * Telephone Encounter - Isabel Hamm RN - 05/07/2023 2:02 PM EDT [facility] Telephonic Nurse Follow-Up Call [facility] Subprogram: Focused Care Management (3-9 months) Follow Up Call Type: Same-day acute follow up 1417:PC to H # Spoke with spouse Syed. Patient identified by full name and date of Acute issue requiring follow-up call: Other: + cough & sore throat , started yesterday Objective: 04/25/2023 2:40 PM 04/13/2023 8:52 AM 04/07/2023 9:56 AM 04/01/2023 2:16 PM 03/21/2023 2:41 PM VITALS ACROSS ENCOUNTERS BP 105/75 108/64 116/64 108/64 109/63 Pulse 73 66 70 80 67 Lab Results Component Value Date WBC AUTO [...] Remote Patient Monitoring: NONE Oxygen Needs: NO CHANGE from baseline supplemental oxygen needs - 2 LPM @ HS only DME Needs: NO DME needs identified Medications: No medication or dose adjustments made during acute episode Subjective: Condition Status: New symptoms - cough, sore throat, doesn't feel good Current Concerns: Pt calling in c/o a sore throat & cough that started yesterday which she says is in her "chest". She denies fever, SOB, chest pain, body aches or headaches, but states "I just don't feel good". Pt states she uses oxygen at home at night. Difficult to get information from pt, I asked her to put her on the line and he was able toanswer my questions. Pt's HR=79 & pulse Ox 99% Disposition: RNCM visit scheduled for tomorrow - CM will contact with ETA on Monday05/08/23. Future Visits Scheduled: Future Appointments-next 60 days Date/Time Provider Specialty Dept Phone 05/17/2023 2:00 PM [facility] Pharmacist1 Pharmacy [phone] 05/17/2023 3:00 PM Chair 10 [facility] Onc [facility] Hematology Oncology [phone] 05/19/2023 1:30 PM [facility] C[facility]; [facility] [phone] 05/22/2023 1:30 PM (Arrive by 1:15 PM) [facility] Bolton Gastroenterology [phone] 06/27/2023 1:45 PM (Arrive by 1:30 PM) Tono Sanchez MD Hematology Oncology [phone] 06/27/2023 2:20 PM [facility] Pharmacist1 Pharmacy [phone] 07/13/2023 1:00 PM (Arrive by 12:45 PM) ZAK Rios Sleep Disorders [phone] 07/31/2023 1:20 PM (Arrive by 1:05 PM) Vanita Dunn MD Family Medicine [phone] 07/31/2023 2:20 PM Laboratory [facility] [phone] 09/05/2023 2:00 PM (Arrive by 1:45 PM) ZAK Rangel Cardiology [phone] 10/04/2023 4:00 PM (Arrive by 3:45 PM) Renetta Martinez MD Gynecology Obstetrics [phone] Zelda Hamm RN [facility] Surgical Asst/ [place] Toll Free Number: documented in this encounter Plan of Treatment Upcoming Encounters Date Type Specialty Care Team Description 2023 Home Visit [facility] July Poe RN [address] [place] [address] 05/17/2023 Office Visit Pharmacy Pharmacist1, [facility] [address] [place] [address] 05/17/2023 Hem/Onc Treatment Hematology Oncology [place], Chair 10 Hem Onc [address] [place] [address] 05/19/2023 Telemedicine [facility] Joselin Dawson CRNP [address] [place] [address] [facility] [address] [place] [address] 05/22/2023 Office Visit Gastroenterology Lyssa Stout CRNP [address] [place] [address] 06/27/2023 Office Visit Hematology Oncology Tono Sanchez MD [address] [place] [address] 06/27/2023 Office Visit Pharmacy Pharmacist1, [facility] [address] [place] [address] 07/13/2023 Office Visit Sleep Disorders Lanette Fields CRNP [address] [place] [address] 07/31/2023 Office Visit Family Medicine Vanita Dunn MD [address] [place] [address] 07/31/2023 Laboratory Laboratory [facility] [address] [place] [address] 09/05/2023 Office Visit Cardiology Quyen Canseco CRNP [address] [place] [address] 10/04/2023 Office Visit Gynecology Obstetrics Renetta Martinez MD [address] [place] [address] Scheduled Procedures Name Priority Associated Diagnoses Date/Ti [...] 06/01/2020, Additional history exists TSH 07/06/2023 07/06/2022, 04/2022, 06/10/2021, Additional history exists HbA1c 10/26/2023 [...] this encounter Medical Devices Implanted Type Area Rn Cardiology Device Identifier Shelf Expiration Date Model / Serial / Lot [employer] Sure Clip Implanted:Qty: 2 on 06/03/2020 by Janis Hatch DO at OR [facility] Clip N/A: Colon 04/21/2022 [facility]-F-26-2 35-C-R / / [id number] documented as of this encounter Advance Directives Documents on File Type Date Recorded Patient Supervisor [employer] Expl anation Advance Directives and Living Will 04/29/2021 ADVANCE DIRECTIVE / LIVING WILL LIVING WILL AND HEALTH CARE POA Power of Chairman Emeritus 04/29/2021 [facility] [...] the patient have Health Care Power of Chairman Emeritus? No Code Status History Code Status Date Activated Date Inactivated Comments Full Code 12/27/2021 2:50 PM 12/27/2021 8:02 PM This order reflects the patients wishes and were consensually agreed upon. Question Answer Comments Discussion of Advance Directives occurred with: Not Discussed Does the patient have a Living Will? No Does the patient have Health Care Power of Chairman Emeritus? No Full Code 03/31/2021 8:57 PM 04/03/2021 [...] Agents on File Name Relationship Healthcare Agent Romainhi p Communication Syed Bustos Spouse Emergency Contact Care Teams Housecleaner Floor Relationship Specialty Start Date End Date Vanita Dunn MD [address] [place] [address] PCP - General Family Medicine 03/16/21 documented as of this encounter
--- OUTSIDE RECORDS SUMMARY | 2023-05-10 16:35 | External Medical Summary | Summary of Care ---
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 Name Role Phone Vanita Dunn MD Primary Care Provid er Reason for Visit * Reason Comments eRx-Medication Refill Encounter Details Date Type Department Care Team Description 04/29/2023 Refill Cardiology, [facility] [address] [place] [address] Mega Hagen MD [address] [place] [address] Chronic diastolic (congestive) heart failure (HCC)* Allergies Active Allergy Reactions Severity Noted Date Comments Adhesive Tape Itching 04/29/2020 Penicillins Rash 02/12/2008 Penicillin G 07/20/2018 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 documented as of this encounter (statuses as of 05/03/2023) Medications Medication Sig Dispensed Refills Start Date End Date Status nystatin (NYSTOP) 478726 UNIT/GM powder Apply topically to affected area 3 times a day. 60 g 1 0 Active Dexcom G6 Computer Technology Teacher Device Use as directed. To test blood sugars 4 times a day Dx E11.9 1 Each 0 1 Active Dexcom G6 Transmitter Use as directed. To test blood sugars 4 times a day. Change every 90 days. Dx E11.9 1 Each 3 1 Active OneTouch Verio In Vitro Strip (Glucose Blood) TESTING once daily 100 Strip 3 1 Active OneTouch Delica Plus [id number] TESTING once daily 100 Each 3 1 Active Nitroglycerin 0.4 MG Sublingual Tablet Sublingual (Nitrostat) Place 1 Tab under the tongue every 5 minutes as needed for Pain, Chest. up to 3 doses in 15 minutes 25 Tab 11 1 Active BiPAP every night at bedtime. 0 Active MEDICAL INSTRUCTIONSIndicat ions:Iron deficiency anemia due to chronic blood loss Please de-access patient's port. Please flush with 10 mL of NS, followed by 500 units (5 mL) of heparin. 1 Each 0 1 Active Docusate Sodium 100 MG Oral Capsule (Colace) TAKE 1 CAPSULE BY MOUTH ONCE DAILY 68 Cap 0 1 Active Fluticasone Propionate 50 MCG/ACT Nasal Suspension (Flonase)Indication s:Sinus congestion USE 2 SPRAYS IN EACH NOSTRIL ONCE DAILY DIRECTED 16 g 5 1 Active Dexcom G6 Sensor use as directed to test blood sugar 4 times daily. change sensor every 10 days 3 Each 3 2 Active Disposable Brief X-LargeIndications: Hypertensive heart disease with chronic diastolic congestive heart failure (HCC),Hepatic cirrhosis, unspecified hepatic cirrhosis type, unspecified whether ascites present (HCC),Other cerebral palsy (HCC),Urinary incontinence, unspecified type,Frequent fecal incontinence Use as directed 60 Each 5 2 Active Levothyroxine Sodium 150 MCG Oral Tablet (Levoxyl)Indication s:Acquired hypothyroidism Take by mouth 1 Tablet in the morning. (at least 30 min prior to breakfast or other meds). 30 Tablet 11 2 Active BD Pen Needle Mini U/F 31G X 5 MM (Insulin Pen Needle)Indications: Type 2 diabetes mellitus with hemoglobin A1c goal of less than 7.0% ([facility]) USE TO INJECT INSULIN FOUR TIMES DAILY. 400 Each 3 2 Active Silver sulfADIAZINE 1 % External Cream (Silvadene)Indicati ons:Pressure injury of skin of sacral region, unspecified injury stage Apply topically to affected area daily . Apply to wound 85 g 11 2 Active Furosemide 20 MG Oral Tablet (Lasix) TAKE 1 TABLET BY MOUTH DAILY as needed for lower extremity swelling 90 Tablet 3 2 Active Additional Information Patient taking differently: 20 mg Oral Daily(AM), Reported on 03/09/2023 Pantoprazole Sodium 20 MG Oral Tablet Delayed Release (Protonix)Indicatio ns:NAFLD (nonalcoholic fatty liver disease),Other cirrhosis of liver (HCC) Take 2 Tablets by mouth in the morning and 2 Tablets before bedtime. 360 Tablet 1 3 Active Albuterol Sulfate (2.5 MG/3ML) 0.083% Inhalation Nebulization Solution (Proventil)Indicati ons:Restrictive lung disease Inhale 1 Vial via nebulizer every 6 hours as needed for Wheezing. 120 mL 1 3 Active Aspirin Low Dose 81 MG Oral Tablet Chewable (aspirin) CHEW AND SWALLOW 1 TABLET BY MOUTH DAILY 30 Tablet 5 3 Active Cetirizine HCl 10 MG Oral Tablet (ZyrTEC) Take 0.5 Tablets by mouth in the morning. 30 Tablet 2 3 Active Linzess 290 MCG Oral Capsule (linaCLOtide) TAKE 1 CAPSULE BY MOUTH once DAILY before breakfast 90 Capsule 3 3 Active Potassium Chloride ER 10 MEQ Oral Tablet Extended ReleaseIndications: Hypokalemia Take by mouth 1 tablet in the morning with food. 90 Tablet 3 3 Active Nadolol 40 MG Oral Tablet (Corgard)Indication s:HTN, goal below 140/90 TAKE 1 TABLET BY MOUTH DAILY 90 Tablet 3 3 Active Oxybutynin Chloride 5 MG Oral Tablet (Ditropan)Indicatio ns: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,Other cerebral palsy (HCC) TAKE 1 TABLET BY MOUTH TWICE DAILY 180 Tablet 1 3 Active Gabapentin 300 MG Oral Capsule (Neurontin)Indicati ons:DM type 2 with diabetic peripheral neuropathy (HCC),Diabetic foot (HCC) TAKE 1 CAPSULE BY MOUTH IN THE MORNING, 1 CAPSULE MIDDAY, 2 CAPSULES IN THE EVENING. MAY TAKE AN EXTRA DOSE IN THE MORNING AND MIDDAY IF NEEDED FOR PAIN. MAX DAILY AMOUNT: 6 CAPSULES 360 Capsule 1 3 Active Escitalopram Oxalate 20 MG Oral Tablet (Lexapro)Indication s:Recurrent major depressive disorder, in partial remission (HCC) TAKE 1 TABLET BY MOUTH DAILY 90 Tablet 3 3 Active Lidocaine-Prilocain e 2.5-2.5 % External Cream (Emla)Indications:E ncounter for antineoplastic chemotherapy,Iron deficiency anemia due to chronic blood loss Apply topically to affected area as needed for Other (when accessing port). APPLY TO SKIN OVER MEDIPORT & COVER 1HR PRIOR TO ACCESSING. 30 g 0 3 Active Fluticasone-Salmete rol 250-50 MCG/ACT Inhalation Aerosol Powder Breath Activated (Advair Diskus) INHALE 1 PUFF BY MOUTH TWICE DAILY 180 Each 1 3 Active Isosorbide Mononitrate ER 30 MG Oral Tablet Extended Release 24 Hour (Imdur) TAKE 1 TABLET BY MOUTH DAILY 90 Tablet 1 3 Active metFORMIN HCl ER 500 MG Oral Tablet Extended Release 24 Hour (Glucophage XR) TAKE 1 TABLET BY MOUTH DAILY with food. 90 Tablet 1 3 Active Atorvastatin Calcium 80 MG Oral Tablet (Lipitor) TAKE 1 TABLET BY MOUTH EVERY DAY AT BEDTIME 90 Tablet 1 3 Active Benzonatate 200 MG Oral CapsuleIndications: Bronchitis, complicated Take 1 Capsule by mouth 3 times a day as needed for Cough. 30 Capsule 1 3 Active One-A-Day Womens 50+ Oral Tablet Take 1 Tablet by mouth in the morning. 0 Active NovoLOG FlexPen 100 UNIT/ML Subcutaneous Solution Pen-injectorIndicat ions:Type 2 diabetes mellitus with hemoglobin A1c goal of less than 8.0% (HCC) 35 Units at breakfast, 45 Units before lunch, 82 Units before supper 150 mL 3 3 Active Trulicity 4.5 MG/0.5ML Subcutaneous Solution Pen-injector (Dulaglutide)Indica tions:Type 2 diabetes mellitus with hemoglobin A1c goal of less than 7.0% (HCC) inject 4.5mg ( 1 pen) under skin once weekly 6 mL 3 3 Active Lactulose 10 GM/15ML Oral Solution (Constulose) Take 45 mL by mouth in the morning and 45 mL at noon and 45 mL before bedtime. take 45ml by mouth three times daily. 3784 mL 6 3 Active traZODone HCl 50 MG Oral Tablet (Desyrel)Indication s:Sleep disturbances TAKE 1 TABLET BY MOUTH AT BEDTIME 90 Tablet 2 3 Active Spironolactone 25 MG Oral Tablet (Aldactone)Indicati ons:Chronic diastolic (congestive) heart failure (HCC) TAKE 2 TABLETS BY MOUTH EVERY MORNING 180 Tablet 0 3 Active Spironolactone 25 MG Oral Tablet (Aldactone) Take by mouth 2 Tablets in the morning. 180 Tablet 3 2 05/01/20 23 Discontinued Hospital, Clinic, or Other Facility Administered Medication [...] as of this encounter (statuses as of 05/03/2023) Active Problems Problem Noted Date Thrombocytopenia 01/17/2023 [...] as of this encounter (statuses as of 05/03/2023) Resolved Problems Problem Noted Date Resolved Date [...] Achilles tendinitis, right leg 04/08/2019 0 09/13/2021 assisted resident 04/08/2019 05/02/2019 Ambulatory dysfunction 04/04/2019 2 Fall 04/04/2019 05/05/2020 Sprain of right ankle 04/04/2019 05/05/2020 Recurrent major depressive disorder, in partial remission 04/04/2019 11/08/2022 Overview: More recent Dx noted on PL Last Assessment & Plan: Seems very depressed about current situation. 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 if a shelter plan is made -continue lexapro Generalized weakness [...] pain 01/24/2012 01/17/2017 Genetic Sleep Disorder Research Other*[id number] 05/13/2011 04/07/2016 Obstructive sleep apnea 01/18/2011 12/27/19 [...] as of this encounter (statuses as of 05/03/2023) Immunizations Name Administration Dates Next Due COVID-19 mRNA, LNP-s, No Pre serve, 2-Dose Series (Moderna) 01/05/2022,07/26/2021,12/21/2020,11/09 HEP A - Hepatitis A (Adult > 18 yrs) 09/24/2018, 03/26/2018 Hepatitis B, 20+ yrs 09/24/2018,04/23/2018,03/26 Pneumococcal Conjugate Vacc, 13 Valent (Prevnar) 05/02/2019 Pneumococcal Conjugate Vacci ne, 20-valent ([id number]) 10/21/2022 Pneumococcal Polysaccharide PPV23 (Pneumovax) 06/01/2010 Seasonal [...] encounter Miscellaneous Notes * Telephone Encounter - THAD Andrade - 05/03/2023 11:08 AM EDT Spoke with pt. Pt is scheduled 09/05/23 with Irma Deng * Telephone Encounter - THAD Andrade - 05/01/2023 3:17 PM EDTSigned Prescriptions: Disp Refills Spironolactone 25 MG Oral Tablet (Aldacton*180 Ta*0 Sig: TAKE 2 TABLETS BY MOUTH EVERY MORNINGAuthorizing Provider: IRMA FOUNTAIN * Telephone Encounter - THAD Andrade - 05/01/2023 3:16 PM EDT Reached female at home. States pt is sleeping and asking for me to call back tomorrow. Schedule return with Irma Deng * Telephone Encounter - NATE Brice - 05/01/2023 11:11 AM EDTPending Prescriptions: Disp Refills Spironolactone 25 MG Oral Tablet (Aldacton*180 Ta*0 Sig: TAKE 2 TABLETS BY MOUTH EVERY MORNING * Telephone Encounter - NATE Brice - 05/01/2023 11:10 AM EDT Scheduling -- please contact pt for follow up. Pt no showed 05-05-2023 appt, but I do not see that aletter was sent or that appt was rescheduled. * Telephone Encounter - NATE Brice - 05/01/2023 11:10 AM EDT Did you pend patient's preferred pharmacy and medication before forwarding?yes Pharmacy: [facility] # [id number] Pending Prescriptions: Disp Refills Spironolactone 25 MG Oral Tablet (Aldacto*180 Ta*0 Sig: TAKE 2 TABLETS BY MOUTH EVERY MORNING Last Visit: 11/04/2021 (in office), Visit date not found (telemedicine) Next Visit: Visit date not found If no future appointments scheduled, and last appointment is greater than a year ago, please schedule patient for a follow-up appointment Last date the medication was ordered: 05-06-2022 Is this request for a controlled substance?No Urine Drug Screen:No results found. However, due to the size of the patient record, not all encounters were searched. Please check Results Review for a complete set of results. Patient Phone Numbers Labs: Lab Results Component Value Date/Time CREAT 0.7 02/01/2023 01:50 PM CREAT 0.72 12/18/2021 12:00 AM CREAT 0.6 09/24/2020 05:16 PM POTASSIUM 4.6 12/06/2022 02:08 PM POTASSIUM 4.3 12/18/2021 12:00 AM POTASSIUM 4.0 09/24/2020 05:16 PM TSH 0.70 07/06/2022 01:37 PM TSH 0.69 07/14/2020 04:24 PM LDLCALC 45 02/22/2023 12:58 PM LDLCALC 43 04/05/2019 06:40 AM LDLDIRECT 46 02/21/2020 11:43 AM ALT 32 12/06/2022 02:08 PM ALT 23 08/21/2020 04:35 PM HGBA1C 6.3 (H) 04/25/2023 03:21 PM HGBA1C 9.9 (H) 07/06/2020 05:24 AM * Telephone Encounter - Interface, E-Rx Ss Inbound - 05/01/2023 10:33 AM EDT Pending Prescriptions: Disp Refills Spironolactone 25 MG Oral Tablet [Pharmacy*180 Ta*0 Sig: TAKE 2TABLETS BY MOUTH EVERY MORNING documented in this encounter Plan of Treatment Upcoming Encounters Date Type Specialty Care Team Description 05/17/2023 Office Visit Pharmacy Pharmacist1, [facility] [address] [facility] [place] [address] 05/17/2023 Hem/Onc Treatment Hematology Oncology [place], Chair 10 Hem Onc [facility] [address] [place] [address] 05/19/2023 Telemedicine [facility] Joselin Dawson CRNP [address] [facility] [place] [address] Monika Zamora, [address] [place] [address] 05/22/2023 Office Visit Gastroenterology Lyssa Stout CRNP [address] [place] [address] 06/27/2023 Office Visit Hematology Oncology Tono Sanchez MD [address] [facility] [place] [address] 06/27/2023 Office Visit Pharmacy Pharmacist, [facility] [address] [facility] [place] [address] 07/13/2023 Office Visit Sleep Disorders Lanette Fields CRNP [address] [place] [address] 07/31/2023 Office Visit Family Medicine Mona, Vanita Barbour MD [address] [place] [address] 07/31/2023 Laboratory Laboratory [facility] [address] [place] [address] 09/05/2023 Office Visit Cardiology Irma Fountain CRNP [address] [place] [address] 10/04/2023 Office Visit Gynecology Obstetrics Renetta Martinez MD [address] [place] [address] Scheduled Procedures Name Priority Associated Diagnoses Date/Ti [...] 06/10/2021, Additional history exists HbA1c 10/26/2023 04/25/2023, 032 04/2023, 05/19/2022, Additional history exists Mammogram 12/10/2023 12/09/2022, 08/13, 09/08/2020, Additional history exists GFR 02/02/2024 02/01/2023, 2 04/2023, 08/30/2022, Additional history exists B-12 02/23/2024 02/22/2023, 01/0 01/2022, 07/06/2021, Additional history exists COLONOSCOPY-EVERY 5 YRS AGES 18-100 06/03/2025 06/03/2020, 06/03/2020, 03/17/2020, Additional history exists DTaP,Tdap,and Td Vaccines (3 - Td or Tdap) 05/01/2027 05/01/2017, 05/26/2008 Lipid Panel 02/23/2028 02/22/2023, 01/0 12/2021, 02/21/2020, Additional history exists Pap Smear Discontinued 10/10/2016, 06/12, 04/16/2013, Additional history exists Hepatitis B Completed 09/24/2018, 04/11, 03/26/2018 Pneumococcal Vaccine: 65+ Years Completed 10/21/2022, 05/02/2019, 06/01/2010 GARDASIL-HPV IMMUNIZATION SERIES Aged Out No longer eligible based on patient's age to complete this topic MENINGOCOCCAL (MENACTRA/MENVEO) Aged Out No longer eligible based on patient's age to complete this topic documented as of this encounter Medical Devices Implanted Type Area Research Interviewer Device Identifier Shelf Expiration Date Model / Serial / Lot [employer] Sure Clip Implanted:Qty: 2 on 06/03/2020 by Janis Hatch DO at OR [facility] Clip N/A: Colon 04/21/2022 [facility]-F-26-2 35-C-R / / [id number] documented as of this encounter Visit Diagnoses Diagnosis Chronic diastolic (congestive) heart failure (HCC)- Primary documented in this encounter Advance Directives Documents on File Type Date Recorded Patient Special Education Tutor Expl anation Advance Directives and Living Will 04/29/2021 ADVANCE DIRECTIVE / LIVING WILL LIVING WILL AND HEALTH CARE POA Power of Shrimp Boat Captain 04/29/2021 [facility] [...] the patient have Health Care Power of Shrimp Boat Captain? No Code Status History Code Status Date Activated Date Inactivated Comments Full Code 12/27/2021 2:50 PM 12/27/2021 8:02 PM This order reflects the patients wishes and were consensually agreed upon. Question Answer Comments Discussion of Advance Directives occurred with: Not Discussed Does the patient have a Living Will? No Does the patient have Health Care Power of Shrimp Boat Captain? No Full Code 03/31/2021 8:57 PM 04/03/2021 [...] Agents on File Name Relationship Healthcare Agent [facility] p Communication Syed Bustos Spouse Emergency Contact Care Teams Field Ironworker Relationship Specialty Start Date End Date Vanita Dunn MD [address] [place] [address] PCP - General Family Medicine 03/16/21 documented as of this encounter
--- OUTSIDE RECORDS SUMMARY | 2023-05-10 16:35 | External Medical Summary ---
Author Name Unknown Address Unknown Organization [id number][facility] [address] [facility] [place] [address] Laboratory Report Ordering Provider Test Date Status JERMAINE RAMSAY 2023 13:15:15 Final Observation Date Value Abnormality Reference (Units ) Status Adenovirus DNA [Presence] in Nasopharynx by JANY with non-probe detection 2023 13:15:15 Negative Negative Final Human coronavirus 229E RNA [Presence] in Nasopharynx by JANY with non-probe detection 2023 13:15:15 Negative Negative Final Human coronavirus HKU1 RNA [Presence] in Nasopharynx by JANY with non-probe detection 2023 13:15:15 Negative Negative Final Human coronavirus NL63 RNA [Presence] in Nasopharynx by JANY with non-probe detection 2023 13:15:15 Negative Negative Final Human coronavirus OC43 RNA [Presence] in Nasopharynx by JANY with non-probe detection 2023 13:15:15 Negative Negative Final SARS-CoV-2 (COVID-19) RNA [Presence] in Nasopharynx by JANY with non-probe detection 2023 13:15:15 Negative Negative Final Human metapneumovirus RNA [Presence] in Nasopharynx by JANY with non-probe detection 2023 13:15:15 Negative Negative Final Rhinovirus+Enterovirus RNA [Presence] in Nasopharynx by JANY with non-probe detection 2023 13:15:15 Negative Negative Final Influenza virus A RNA [Presence] in Nasopharynx by JANY with non-probe detection 2023 13:15:15 Negative Negative Final Influenza virus B RNA [Presence] in Nasopharynx by JANY with non-probe detection 2023 13:15:15 Negative Negative Final Parainfluenza virus 1 RNA [Presence] in Nasopharynx by JANY with non-probe detection 2023 13:15:15 Negative Negative Final Parainfluenza virus 2 RNA [Presence] in Nasopharynx by JANY with non-probe detection 2023 13:15:15 Negative Negative Final Parainfluenza virus 3 RNA [Presence] in Nasopharynx by JANY with non-probe detection 2023 13:15:15 Negative Negative Final Parainfluenza virus 4 RNA [Presence] in Nasopharynx by JANY with non-probe detection 2023 13:15:15 Negative Negative Final Respiratory syncytial virus RNA [Presence] in Nasopharynx by JANY with non-probe detection 2023 13:15:15 Negative Negative Final Bordetella pertussis.pertussis toxin promoter region [Presence] in Nasopharynx by JANY with non-probe detection 2023 13:15:15 Negative Negative Final Chlamydophila pneumoniae DNA [Presence] in Nasopharynx by JANY with non-probe detection 2023 13:15:15 Negative Negative Final Mycoplasma pneumoniae DNA [Presence] in Nasopharynx by JANY with non-probe detection 2023 13:15:15 Negative Negative Final Bordetella parapertussis [id number] DNA [Presence] in Nasopharynx by JANY with non-probe detection 2023 13:15:15 Negative Negative Final Performing Location [facility] [address] [facility] [address]
--- OUTSIDE RECORDS SUMMARY | 2023-05-10 16:35 | External Medical Summary | Summary of Care ---
Author Name Unknown Organization [facility] Address [address] [facility] [place] [address] Phone [phone] Care Team Providers Care Bug Trimmer Name Role Phone Vanita Dunn MD Primary Care Provid er Reason for Visit * Reason Comments eRx-Medication Refill Encounter Details Date Type Department Care Team Description 05/03/2023 Refill Cardiology, [facility] [address] [facility] [place] [id number] Vanita Dunn MD [address] [place] [address] Allergies Active Allergy Reactions Severity Noted Date Comments Adhesive Tape Itching 04/29/2020 Penicillins Rash 02/12/2008 Penicillin G 07/20/2018 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 documented as of this encounter (statuses as of 05/04/2023) Medications Medication Sig Dispensed Refills Start Date End Date Status nystatin (NYSTOP) 791117 UNIT/GM powder Apply topically to affected area 3 times a day. 60 g 1 0 Active Dexcom G6 Separating Machine Operator Device Use as directed. To test blood sugars 4 times a day Dx E11.9 1 Each 0 1 Active Dexcom G6 Transmitter Use as directed. To test blood sugars 4 times a day. Change every 90 days. Dx E11.9 1 Each 3 1 Active OneTouch Verio In Vitro Strip (Glucose Blood) TESTING once daily 100 Strip 3 1 Active OneTouch Delica Plus [id number] TESTING once daily 100 Each 3 1 Active BiPAP every night at bedtime. [...] hemoglobin A1c goal of less than 7.0% ([facility]) USE TO INJECT INSULIN FOUR TIMES [...] hemoglobin A1c goal of less than 8.0% ([facility]) 35 Units at breakfast, 45 Units before lunch, 82 Units before supper 150 mL 3 3 Active Trulicity 4.5 MG/0.5ML Subcutaneous Solution Pen-injector (Dulaglutide)Indica tions:Type 2 diabetes mellitus with hemoglobin A1c goal of less than 7.0% ([facility]) inject 4.5mg ( 1 pen) under [...] EVERY MORNING 180 Tablet 0 3 Active Insulin Glargine Solostar 100 UNIT/ML Subcutaneous Solution Pen-injector (Basaglar KwikPen)Indications :Type 2 diabetes mellitus with hemoglobin A1c goal of less than 8.0% ([facility]) Inject 46 Units under the skin daily. 45 mL 3 3 Active Nitroglycerin 0.4 MG Sublingual Tablet Sublingual (Nitrostat) PLACE 1 TABLET UNDER THE TONGUE EVERY 5 MINUTES, NEEDED FOR CHEST PAIN. UP TO 3 DOSES IN 15 MINUTES. 25 Tablet 11 3 Active Nitroglycerin 0.4 MG Sublingual Tablet Sublingual (Nitrostat) Place 1 Tab under the tongue every 5 minutes as needed for Pain, Chest. up to 3 doses in 15 minutes 25 Tab 11 05/04/20 23 Discontinued Hospital, Clinic, or Other Facility [...] as of this encounter (statuses as of 05/04/2023) Active Problems Problem Noted Date Thrombocytopenia 01/17/2023 [...] as of this encounter (statuses as of 05/04/2023) Resolved Problems Problem Noted Date Resolved Date [...] 02/15/2021 10/01/2021 AMS (altered mental status) 02/04/2021 05/05/2021 Cardiomegaly 01/30/2021 09/13/2021 SOB (shortness of breath) 01/30/20212021 Uncontrolled type 2 diabetes mellitus with hyper glycemia 07/15/2020 09/13/2021 Acute blood loss anemia 07/06/2020 12/01/19 Esophagitis 07/06/2020 09/13/2021 Bacteremia 07/04/2020 11/30/2020 Diabetic [...] Achilles tendinitis, right leg 04/08/2019 0 09/13/2021 [facility] resident 04/08/2019 05/02/2019 Ambulatory dysfunction 04/04/2019 2 Fall 04/04/2019 05/05/2020 Sprain of right ankle 04/04/2019 05/05/2020 Recurrent major depressive disorder, in partial remission 04/04/2019 11/08/2022 Overview: More recent Dx noted on PL Last Assessment & Plan: Seems very depressed about current situation. 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 if a intermediate accountant plan is made -continue lexapro Generalized weakness [...] pain 01/24/2012 01/17/2017 Genetic Sleep Disorder Research Other*[id number] 05/13/2011 04/07/2016 Obstructive sleep apnea 01/18/2011 12/27/19 [...] as of this encounter (statuses as of 05/04/2023) Immunizations Name Administration Dates Next Due COVID-19 mRNA, LNP-s, No Pre serve, 2-Dose Series (Moderna) 01/05/2022,07/26/2021,12/21/2020,11/09 HEP A - Hepatitis A (Adult > 18 yrs) 09/24/2018, 03/26/2018 Hepatitis B, 20+ yrs 09/24/2018,04/23/2018,03/26 Pneumococcal Conjugate Vacc, 13 Valent (Prevnar) 05/02/2019 Pneumococcal Conjugate Vacci ne, 20-valent ([id number]) 10/21/2022 Pneumococcal Polysaccharide PPV23 (Pneumovax) 06/01/2010 Seasonal [...] encounter Miscellaneous Notes * Telephone Encounter - ZAK Rangel - 05/04/2023 10:14 AM EDT Signed Prescriptions: Disp Refills Nitroglycerin 0.4 MG Sublingual Tablet Sub*25 Tab*11 Sig: PLACE 1 TABLET UNDER THE TONGUE EVERY 5 MINUTES, NEEDED FOR CHEST PAIN. UP TO 3 DOSES IN 15 MINUTES. Authorizing Provider: IRMA FOUNTAIN * Telephone Encounter - Neftali Kirk RN - 05/04/2023 9:47 AM EDTPending Prescriptions: Disp Refills Nitroglycerin 0.4 MG Sublingual Tablet Sub*25 Tab*11 Sig: PLACE 1 TABLET UNDER THE TONGUE EVERY 5 MINUTES, NEEDED FOR CHEST PAIN. UP TO 3 DOSES IN 15 MINUTES. * Telephone Encounter - Neftali Kirk RN - 05/04/2023 9:46 AM EDT Pending Prescriptions: Disp Refills Nitroglycerin 0.4 MG Sublingual Tablet Collins*25 Tab*11 Sig: PLACE 1 TABLET UNDER THE TONGUE EVERY 5 MINUTES, NEEDED FOR CHEST PAIN. UP TO 3 DOSES IN 15 MINUTES. Last Visit: 11/04/2021 (in office), Visit date not found (telemedicine) Next Visit: 09/05/2023 Last medication order date: 03/03/2021 Have you choosen a preferred pharm?? yes Patient Active Problem List Diagnosis Code Spinal stenosis of lumbar region without neurogenic claudication M48.061 Cerebral palsy (HCC) G80.9 HTN, goal below 130/80 I10 NG (nonalcoholic steatohepatitis) K75.81 Venous stasis dermatitis of both lower extremities I87.2 DDD (degenerative disc disease), lumbar M51.36 Lymphedema I89.0 Type 2 diabetes mellitus with hemoglobin A1c goal of less than 8.0% (HCC) E11.9 Vitamin D deficiency E55.9 Restrictive lung disease J98.4 Obesity, morbid (more than 100 lbs over ideal weight or BMI > 40) ([facility]) E66.01 Dyslipidemia E78.5 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 R39.81 Acquired hypothyroidism E03.9 Chronic pain syndrome G89.4 MEDICATION USE AGREEMENT [id number] Cirrhosis of liver (HCC) K74.60 THAD on CPAP G47.33, Z99.89 Wheelchair dependent Z99.3 DM type 2 with diabetic peripheral neuropathy (HCC) E11.42 Primary insomnia F51.01 Impaired mobility and ADLs Z74.09, Z78.9 Gastroesophageal reflux disease K21.9 Fibromyalgia M79.7 Iron deficiency anemia due to chronic blood loss D50.0 Esophageal varices (HCC) I85.00 Portal hypertensive gastropathy (HCC) K76.6, K31.89 Chronic diastolic (congestive) heart failure (HCC) I50.32 Pancytopenia (HCC) D61.818 Major depressive disorder, recurrent, moderate ([facility]) F33.1 Generalized anxiety disorder F41.1 Hypertensive heart failure ([facility]) I11.0 Thrombocytopenia ([facility]) D69.6 Labs: Lab Results Component Value Date/Time CREATININE - [facility] 0.7 02/01/2023 01:50 PM CREATININE - [facility] 0.6 09/24/2020 05:16 PM CREATININE, RANDOM URINE - [facility] 131 03/30/2022 02:02 PM CREATININE, RANDOM URINE - [facility] 115 01/11/2019 01:29 PM CREATININE-OUTSIDE LAB 0.72 12/18/2021 12:00 AM Lab Results Component Value Date/Time POTASSIUM - [facility] 4.6 12/06/2022 02:08 PM POTASSIUM - [facility] 4.0 09/24/2020 05:16 PM POTASSIUM-OUTSIDE LAB 4.3 12/18/2021 12:00 AM Lab Results Component Value Date/Time TSH - [facility] 0.70 07/06/2022 01:37 PM TSH - [facility] 0.69 07/14/2020 04:24 PM TSH - OUTSIDE LAB 0.725 08/24/2018 12:00 AM Lab Results Component Value Date/Time LDL CHOLESTEROL (CALCULATED) - [facility] 45 02/22/2023 12:58 PM LDL CHOLESTEROL (CALCULATED) - [facility] 46 09/14/2021 03:22 PM LDL CHOLESTEROL (CALCULATED) - [facility] 43 04/05/2019 06:40 AM LDL CHOLESTEROL (CALCULATED) - [facility] 57 05/05/2016 10:19 AM LDL CHOLESTEROL (DIRECT MEASURE) - [facility] 46 02/21/2020 11:43 AM LDL CHOLESTEROL (DIRECT MEASURE) - [facility] 57 10/11/2017 01:18 PM Lab Results Component Value Date/Time ALT - [facility] 32 12/06/2022 02:08 PM ALT - [facility] 23 08/21/2020 04:35 PM ALTERNARIA IGE - [facility] <0.20 08/19/2021 04:18 PM Hemoglobin AIC Results: Lab Results Component Value Date/Time HEMOGLOBIN A1C - [facility] 6.3 (H) 04/25/2023 03:21 PM HEMOGLOBIN A1C - [facility] 6.0 (H) 12/06/2022 02:08 PM HEMOGLOBIN A1C - [facility] 7.4 (H) 05/19/2022 02:49 PM HEMOGLOBIN A1C - [facility] 9.9 (H) 07/06/2020 05:24 AM HEMOGLOBIN A1C - [facility] 11.0 (H) 05/26/2020 04:44 AM HEMOGLOBIN A1C - [facility] 9.9 (H) 04/28/2020 04:37 PM documented in this encounter Plan of Treatment Upcoming Encounters Date Type Specialty Care Team Description 05/17/2023 Office Visit Pharmacy Pharmacist1, [facility] [address] [facility] [place] [address] 05/17/2023 Hem/Onc Treatment Hematology Oncology [place], Chair 10 Hem Onc [facility] [address] [facility] [place] [address] 05/19/2023 [facility]medicine [facility] Joselin Dawson CRNP [address] [place] [address] Monika Zamora [address] [place] [address] 05/22/2023 Office Visit Gastroenterology Lyssa Stout CRNP [address] [place] [address] 06/27/2023 Office Visit Hematology Oncology Tono Sanchez MD [address] [place] [address] 06/27/2023 Office Visit Pharmacy Pharmacist1, [facility] [address] [facility] [place] [address] 07/13/2023 Office Visit Sleep Disorders Lanette Fields CRNP [address] [place] [address] 07/31/2023 Office Visit Family Medicine Vanita Dunn MD [address] [place] [address] 07/31/2023 Laboratory Laboratory [facility] [address] [place] [address] 09/05/2023 Office Visit Cardiology Irma Fountain CRNP [address] [place] [address] 10/04/2023 Office Visit Gynecology Obstetrics Renetta Martinez MD [address] [place] [address] Scheduled Procedures Name Priority Associated Diagnoses Date/Ti [...] this encounter Medical Devices Implanted Type Area Banquet Line Cook Device Identifier Shelf Expiration Date Model / Serial / Lot Microtech Sure Clip Implanted:Qty: 2 on 06/03/2020 by Janis Hatch DO at OR [facility] Clip N/A: Colon 04/21/2022 [facility]-F-26-2 35-C-R / / [id number] documented as of this encounter Advance Directives Documents on File Type Date Recorded Patient Targeteer Expl anation Advance Directives and Living Will 04/29/2021 ADVANCE DIRECTIVE / LIVING WILL LIVING WILL AND HEALTH CARE POA Power of Cost Estimating Engineer 04/29/2021 [facility]OWER [facility] A [facility] [...] the patient have Health Care Power of Cost Estimating Engineer? No Code Status History Code Status Date Activated Date Inactivated Comments Full Code 12/27/2021 2:50 PM 12/27/2021 8:02 PM This order reflects the patients wishes and were consensually agreed upon. Question Answer Comments Discussion of Advance Directives occurred with: Not Discussed Does the patient have a Living Will? No Does the patient have Health Care Power of Cost Estimating Engineer? No Full Code 03/31/2021 8:57 PM 04/03/2021 [...] Agents on File Name Relationship Healthcare Agent [facility] p Communication Syed Bustos Spouse Emergency Contact Care Teams Bug Trimmer Relationship Specialty Start Date End Date Vanita Dunn MD [address] [place] [address] PCP - General Family Medicine 03/16/21 documented as of this encounter
--- OUTSIDE RECORDS SUMMARY | 2023-05-10 16:35 | External Medical Summary | Summary of Care ---
Author Name Unknown Organization [facility] Address [address] [facility] [place] [address] Phone [phone] Care Team Providers Care Keyseating Machine Set Up Operator Name Role Phone Vanita Dunn MD Primary Care Provid er Reason for Visit * Reason Comments eRx-Medication Refill Encounter Details Date Type Department Care Team Description 04/29/2023 Refill Cardiology, [facility] [address] [place] [address] Mega Hagen MD [address] [place] [address] Chronic diastolic (congestive) heart failure (HCC)* Allergies Active Allergy Reactions Severity Noted Date Comments Adhesive Tape Itching 04/29/2020 Penicillins Rash 02/12/2008 Penicillin G 07/20/2018 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 documented as of this encounter (statuses as of 05/01/2023) Medications Medication Sig Dispensed Refills Start Date End Date Status nystatin (NYSTOP) 610857 UNIT/GM powder Apply topically to affected area 3 times a day. 60 g 1 0 Active Dexcom G6 Electrical Equipment Technician Device Use as directed. To test blood sugars 4 times a day Dx E11.9 1 Each 0 1 Active Dexcom G6 Transmitter Use as directed. To test blood sugars 4 times a day. Change every 90 days. Dx E11.9 1 Each 3 1 Active OneTouch Verio In Vitro Strip (Glucose Blood) TESTING once daily 100 Strip 3 1 Active OneTouch Delica Plus [id number] TESTING once daily 100 Each 3 1 [...] A1c goal of less than 7.0% ([facility]) USE TO INJECT INSULIN FOUR [...] as of this encounter (statuses as of 05/01/2023) Active Problems Problem Noted Date Thrombocytopenia 01/17/2023 [...] as of this encounter (statuses as of 05/01/2023) Resolved Problems Problem Noted Date Resolved Date [...] Achilles tendinitis, right leg 04/08/2019 0 09/13/2021 [facility] resident 04/08/2019 05/02/2019 Ambulatory dysfunction 04/04/2019 2 Fall 04/04/2019 05/05/2020 Sprain of right ankle 04/04/2019 05/05/2020 Recurrent major depressive disorder, in partial remission 04/04/2019 11/08/2022 Overview: More recent Dx noted on PL Last Assessment & Plan: Seems very depressed about current situation. 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 if a longterm plan is made -continue lexapro Generalized weakness [...] pain 01/24/2012 01/17/2017 Genetic Sleep Disorder Research Other*[id number] 05/13/2011 04/07/2016 Obstructive sleep apnea 01/18/2011 12/27/19 [...] as of this encounter (statuses as of 05/01/2023) Immunizations Name Administration Dates Next Due COVID-19 mRNA, LNP-s, No Pre serve, 2-Dose Series (Moderna) 01/05/2022,07/26/2021,12/21/2020,11/09 HEP A - Hepatitis A (Adult > 18 yrs) 09/24/2018, 03/26/2018 Hepatitis B, 20+ yrs 09/24/2018,04/23/2018,03/26 Pneumococcal Conjugate Vacc, 13 Valent (Prevnar) 05/02/2019 Pneumococcal Conjugate Vacci ne, 20-valent ([id number]) 10/21/2022 Pneumococcal Polysaccharide PPV23 (Pneumovax) 06/01/2010 Seasonal [...] before forwarding?yes Pharmacy: [facility] [id number] Pending Prescriptions: Disp Refills Spironolactone 25 [...] Team Description 05/17/2023 Office Visit Pharmacy Pharmacist1, [facility] 200 [facility] [place] [address] 05/17/2023 Hem/Onc Treatment Hematology Oncology [place], Chair 10 Hem Onc [facility] 200 [facility] [place] [address] 05/19/2023 Telemedicine [facility] Joselin Dawson CRNP [address] [place] [address] Monika Zamora, [facility] Public Information Director [address] [place] [address] [place] [address] 05/22/2023 Office Visit Gastroenterology Lyssa Stout CRNP [address] [place] [address] 06/27/2023 Office Visit Hematology Oncology Tono Sanchez MD [address] [place] [address] 06/27/2023 Office Visit Pharmacy Pharmacist1, [facility] 200 [place] [address] 07/13/2023 Office Visit Sleep Disorders Lanette Fields CRNP [address] [place] [address] 07/31/2023 Office Visit Family Medicine Vanita Dunn MD [address] [place] [address] 07/31/2023 Laboratory Laboratory [facility] Laboratory [address] [place] [address] 10/04/2023 Office Visit Gynecology Obstetrics Renetta Martinez MD [address] [place] [address] Scheduled Procedures Name Priority Associated Diagnoses Date/Ti [...] 08/30/2022, Additional history exists B-12 02/23/2024 02/22/2023, 010 01/2022, 07/06/2021, Additional history exists COLONOSCOPY-EVERY 5 [...] this encounter Medical Devices Implanted Type Area Gasoline Locomotive Crane Operator Device Identifier Shelf Expiration Date Model / Serial / Lot Microtech Sure Clip Implanted:Qty: 2 on 06/03/2020 by Janis Hatch DO at OR [facility] Clip N/A: Colon 04/21/2022 [facility]-F-26-2 35-C-R / / [id number] documented as of this encounter Visit Diagnoses Diagnosis Chronic diastolic (congestive) heart failure (HCC)- Primary documented in this encounter Advance Directives Documents on File Type Date Recorded Patient Equipment Inspector Expl anation Advance Directives and Living Will 04/29/2021 ADVANCE DIRECTIVE / LIVING WILL LIVING WILL AND HEALTH CARE POA Power of Frame Bender 04/29/2021 [facility]OWER [facility] A [facility] [...] the patient have Health Care Power of Frame Bender? No Code Status History Code Status Date Activated Date Inactivated Comments Full Code 12/27/2021 2:50 PM 12/27/2021 8:02 PM This order reflects the patients wishes and were consensually agreed upon. Question Answer Comments Discussion of Advance Directives occurred with: Not Discussed Does the patient have a Living Will? No Does the patient have Health Care Power of Frame Bender? No Full Code 03/31/2021 8:57 PM 04/03/2021 [...] Syed Bustos Spouse Emergency Contact Care Teams Keyseating Machine Set Up Operator Relationship Specialty Start Date End Date Vanita Dunn MD [address] [facility] [place] [phone] PCP - General Family Medicine 03/16/21 documented as of this encounter
--- OUTSIDE RECORDS SUMMARY | 2023-05-10 16:36 | External Medical Summary | Summary of Care ---
Author Name Unknown Organization [facility] Address [address] [facility] [place] [address] Phone [phone] Care Team Providers Care Coding Analyst Name Role Phone Vanita Dunn MD Primary Care Provid er Reason for Visit * Reason Comments eRx-Medication Refill Encounter Details Date Type Department Care Team Description 04/29/2023 Refill Cardiology, [facility] [address] [place] [address] Mega Hagen MD [address] [place] [address] Chronic diastolic (congestive) heart failure (HCC)* Allergies Active Allergy Reactions Severity Noted Date Comments Adhesive Tape Itching 04/29/2020 Penicillins Rash 02/12/2008 Penicillin G 07/20/2018 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 documented as of this encounter (statuses as of 05/01/2023) Medications Medication Sig Dispensed Refills Start Date End Date Status nystatin (NYSTOP) 393883 UNIT/GM powder Apply topically to affected area 3 times a day. 60 g 1 0 Active Dexcom G6 Stock Chaser Device Use as directed. To test blood sugars 4 times a day Dx E11.9 1 Each 0 1 Active Dexcom G6 Transmitter Use as directed. To test blood sugars 4 times a day. Change every 90 days. Dx E11.9 1 Each 3 1 Active OneTouch Verio In Vitro Strip (Glucose Blood) TESTING once daily 100 Strip 3 1 Active OneTouch Delica Plus Meaqiw83Q TESTING once daily 100 Each 3 1 [...] hemoglobin A1c goal of less than 7.0% ([facility]) USE TO INJECT INSULIN FOUR TIMES [...] Achilles tendinitis, right leg 04/08/2019 0 09/13/2021 longterm resident 04/08/2019 05/02/2019 Ambulatory dysfunction 04/04/2019 2 [...] pain 01/24/2012 01/17/2017 Genetic Sleep Disorder Research Other*[id number] 05/13/2011 04/07/2016 Obstructive sleep apnea 01/18/2011 12/27/19 [...] (Prevnar) 05/02/2019 Pneumococcal Conjugate Vacci ne, 20-valent ([id number]) 10/21/2022 Pneumococcal Polysaccharide PPV23 (Pneumovax) 06/01/2010 Seasonal [...] encounter Miscellaneous Notes * Telephone Encounter - NATE Brice - [...] before forwarding?yes Pharmacy: [facility] [id number] Pending Prescriptions: Disp Refills Spironolactone 25 [...] Team Description 05/17/2023 Office Visit Pharmacy Pharmacist1, [facility] [address] [facility] [place] [address] 05/17/2023 Hem/Onc Treatment Hematology Oncology [place], Chair 10 Hem Onc [facility] 200 [facility] [place] [address] 05/19/2023 Telemedicine [facility] Joselin Dawson CRNP [address] [place] [address] Monika Zamora, [address] [place] [address] 05/22/2023 Office Visit Gastroenterology Lyssa Stout CRNP [address] [place] [address] 06/27/2023 Office Visit Hematology Oncology Tono Sanchez MD 200 [facility] [place] [address] 06/27/2023 Office Visit Pharmacy Pharmacist1, [facility] [address] [facility] [place] [address] 07/13/2023 Office Visit Sleep Disorders Lanette Fields CRNP [address] [place] [address] 07/31/2023 Office Visit Family Medicine Vanita Dunn MD [address] [place] [address] 07/31/2023 Laboratory Laboratory [facility] [address] [place] [address] 10/04/2023 Office Visit Gynecology Obstetrics Renetta Martinez MD [address] [place] [address] Scheduled Procedures Name Priority Associated Diagnoses Date/Ti [...] this encounter Medical Devices Implanted Type Area Court Collections Officer Device Identifier Shelf Expiration Date Model / Serial / Lot Microtech Sure Clip Implanted:Qty: 2 on 06/03/2020 by Janis Hatch DO at OR [facility] Clip N/A: Colon 04/21/2022 [facility]-F-26-2 35-C-R / / [id number] documented as of this encounter Visit Diagnoses Diagnosis Chronic diastolic (congestive) heart failure (HCC)- Primary documented in this encounter Advance Directives Documents on File Type Date Recorded Patient Railroad Police Expl anation Advance Directives and Living Will 04/29/2021 ADVANCE DIRECTIVE / LIVING WILL LIVING WILL AND HEALTH CARE POA Power of Developer Relations Manager 04/29/2021 POWER [facility] A [facility] [...] the patient have Health Care Power of Developer Relations Manager? No Code Status History Code Status Date Activated Date Inactivated Comments Full Code 12/27/2021 2:50 PM 12/27/2021 8:02 PM This order reflects the patients wishes and were consensually agreed upon. Question Answer Comments Discussion of Advance Directives occurred with: Not Discussed Does the patient have a Living Will? No Does the patient have Health Care Power of Developer Relations Manager? No Full Code 03/31/2021 8:57 PM 04/03/2021 [...] Agents on File Name Relationship Healthcare Agent [facility] p Communication Syed Bustos Spouse Emergency Contact Care Teams Coding Analyst Relationship Specialty Start Date End Date Vanita Dunn MD [address] [place] [address] PCP - General Family Medicine 03/16/21 documented as of this encounter
--- OUTSIDE RECORDS SUMMARY | 2023-05-10 16:36 | External Medical Summary | Summary of Care ---
Author Name Unknown Organization [facility] Address [address] [facility] [place] [address] Phone [phone] Care Team Providers Care Boilermaker Industrial Boilers Name Role Phone Kojo Dunn MD Primary Care Provid er Reason for Visit * Reason Comments eRx-Medication Refill Encounter Details Date Type Department Care Team Description 04/29/2023 Refill [facility] [address] [place] [address] Kojo Dunn MD [address] [place] [address] Sleep disturbances Allergies Active Allergy Reactions Severity Noted Date Comments Adhesive Tape Itching 04/29/2020 Penicillins Rash 02/12/2008 Penicillin G 07/20/2018 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 documented as of this encounter (statuses as of 04/30/2023) Medications Medication Sig Dispensed Refills Start Date End Date Status nystatin (NYSTOP) 298531 UNIT/GM powder Apply topically to affected area 3 times a day. 60 g 1 0 Active Dexcom G6 Dog Beautician Device Use as directed. To test blood sugars 4 times a day Dx E11.9 1 Each 0 1 Active Dexcom G6 Transmitter Use as directed. To test blood sugars 4 times a day. Change every 90 days. Dx E11.9 1 Each 3 1 Active OneTouch Verio In Vitro Strip (Glucose Blood) TESTING once daily 100 Strip 3 1 Active Ciris EnergyTouch Delica Plus [id number] TESTING once daily 100 Each 3 1 [...] as directed 60 Each 5 2 Active Spironolactone 25 MG Oral Tablet (Aldactone) Take by mouth 2 Tablets in the morning. 180 Tablet 3 2 Active Levothyroxine Sodium 150 MCG Oral Tablet (Levoxyl)Indication s:Acquired hypothyroidism Take by mouth 1 Tablet in the morning. (at least 30 min prior to breakfast or other meds). 30 Tablet 11 2 Active BD Pen Needle Mini U/F 31G X 5 MM (Insulin Pen Needle)Indications: Type 2 diabetes mellitus with hemoglobin A1c goal of less than 7.0% ([facility]) USE TO INJECT INSULIN FOUR TIMES [...] by mouth in the morning. 0 Active Lantus SoloStar 100 UNIT/ML Subcutaneous Solution Pen-injectorIndicat ions:Type 2 diabetes mellitus with hemoglobin A1c goal of less than 8.0% ([facility]) Inject 46 Units under the skin daily. 45 mL 3 3 Active NovoLOG FlexPen 100 UNIT/ML Subcutaneous Solution Pen-injectorIndicat ions:Type 2 diabetes mellitus with hemoglobin A1c goal of less than 8.0% ([facility]) 35 Units at breakfast, 45 Units before lunch, 82 Units before supper 150 mL 3 3 Active Trulicity 4.5 MG/0.5ML Subcutaneous Solution Pen-injector (Dulaglutide)Indica tions:Type 2 diabetes mellitus with hemoglobin A1c goal of less than 7.0% ([facility]) inject 4.5mg ( 1 pen) under [...] AT BEDTIME 90 Tablet 2 3 Active traZODone HCl 50 MG Oral Tablet (Desyrel)Indication s:Sleep disturbances TAKE 1 TABLET BY MOUTH AT BEDTIME 90 Tablet 3 2 04/30/20 23 Discontinued Hospital, Clinic, or Other Facility [...] as of this encounter (statuses as of 04/30/2023) Active Problems Problem Noted Date Thrombocytopenia 01/17/2023 [...] as of this encounter (statuses as of 04/30/2023) Resolved Problems Problem Noted Date Resolved Date [...] Achilles tendinitis, right leg 04/08/2019 0 09/13/2021 halfway resident 04/08/2019 05/02/2019 Ambulatory dysfunction 04/04/2019 2 Fall 04/04/2019 05/05/2020 Sprain of right ankle 04/04/2019 05/05/2020 Recurrent major depressive disorder, in partial remission 04/04/2019 11/08/2022 Overview: More recent Dx noted on PL Last Assessment & Plan: Seems very depressed about current situation. 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 if a prison plan is made -continue lexapro Generalized weakness [...] pain 01/24/2012 01/17/2017 Genetic Sleep Disorder Research Other*[id number] 05/13/2011 04/07/2016 Obstructive sleep apnea 01/18/2011 12/27/19 [...] as of this encounter (statuses as of 04/30/2023) Immunizations Name Administration Dates Next Due COVID-19 mRNA, LNP-s, No Pre serve, 2-Dose Series (Moderna) 01/05/2022,07/26/2021,12/21/2020,11/09 HEP A - Hepatitis A (Adult > 18 yrs) 09/24/2018, 03/26/2018 Hepatitis B, 20+ yrs 09/24/2018,04/23/2018,03/26 Pneumococcal Conjugate Vacc, 13 Valent (Prevnar) 05/02/2019 Pneumococcal Conjugate Vacci ne, 20-valent ([id number]) 10/21/2022 Pneumococcal Polysaccharide PPV23 (Pneumovax) 06/01/2010 Seasonal [...] encounter Miscellaneous Notes * Telephone Encounter - Danilo Talavera [facility] - 04/30/2023 4:15 PM EDTSigned Prescriptions: Disp Refills traZODone HCl 50 MG Oral Tablet (Desyrel) 90 Tab*2 Sig: TAKE 1 TABLET BY MOUTH AT BEDTIMEAuthorizing Provider: KOJO DUNN User: DANILO TALAVERA documented in this encounter Plan of Treatment Upcoming Encounters Date Type Specialty Care Team Description 05/17/2023 Office Visit Pharmacy Pharmacist1, [facility] [address] [place] [id number] 05/17/2023 Hem/Onc Treatment H[facility]ology [facility] [place], Chair [address] Hem Onc [address]ery [address] [facility] [place] [address] 05/19/2023 Telemedicine [facility] Joselin Dawson CRNP [address] [place] [address] Monika Zamora, [facility] [address] [place] [address] 05/22/2023 Office Visit Gastroenterology Lyssa Stout CRNP [address] [place] [address] 06/27/2023 Office Visit Hematology Oncology Tono Sanchez MD [address] [place] [address] 06/27/2023 Office Visit Pharmacy Pharmacist1, [facility] [address] [facility] [place] [address] 07/13/2023 Office Visit Sleep Disorders Lanette Fields CRNP [address] [place] [address] 07/31/2023 Office Visit Family Medicine Kojo Dunn MD [address] [place] [address] 07/31/2023 Laboratory Laboratory [facility] [address] [place] [address] 10/04/2023 Office Visit Gynecology Obstetrics Renetta Martinez MD [address] [place] [address] Scheduled Procedures Name Priority Associated Diagnoses Date/Ti [...] 08/30/2022, Additional history exists B-12 02/23/2024 02/22/2023, /0 01/2022, 07/06/2021, Additional history exists COLONOSCOPY-EVERY 5 [...] this encounter Medical Devices Implanted Type Area Mattress And Boxsprings Supervisor Device Identifier Shelf Expiration Date Model / Serial / Lot Microtech Sure Clip Implanted:Qty: 2 on 06/03/2020 by Janis Hatch DO at OR [facility] Clip N/A: Colon 04/21/2022 [facility]-F-26-2 35-C-R / / [id number] documented as of this encounter Visit Diagnoses Diagnosis Sleep disturbances Sleep disturbance, unspecified documented in this encounter Advance Directives Documents on File Type Date Recorded Patient Instructional Support Assistant Expl anation Advance Directives and Living Will 04/29/2021 ADVANCE DIRECTIVE / LIVING WILL LIVING WILL AND HEALTH CARE POA Power of Embroidery Machine Operator 04/29/2021 [facility] [...] the patient have Health Care Power of Embroidery Machine Operator? No Code Status History Code Status Date Activated Date Inactivated Comments Full Code 12/27/2021 2:50 PM 12/27/2021 8:02 PM This order reflects the patients wishes and were consensually agreed upon. Question Answer Comments Discussion of Advance Directives occurred with: Not Discussed Does the patient have a Living Will? No Does the patient have Health Care Power of Embroidery Machine Operator? No Full Code 03/31/2021 8:57 PM 04/03/2021 [...] Agents on File Name Relationship Healthcare Agent [facility] p Communication Syed Bustos Spouse Emergency Contact Care Teams Boilermaker Industrial Boilers Relationship Specialty Start Date End Date Kojo Dunn MD [address] [facility] [place] [id number] PCP - General Family Medicine 03/16/21 documented as of this encounter
--- OUTSIDE RECORDS SUMMARY | 2023-05-10 16:36 | External Medical Summary | Summary of Care ---
Author Name Unknown Organization [facility] Address [address] [facility] [address] Phone [phone] Care Team Providers Care Box Toe Buffer Name Role Phone Vanita Dunn MD Primary Care Provid er Reason for Visit * Reason Onset Date Comments Medication Refill 05/01/2023 Encounter Details Date Type Department Care Team Description 05/01/2023 Refill Pharmacy, [facility] [address] [facility] [place] [address] Jonas Estrada, [place] [facility] [address] [place] [address] Type 2 diabetes mellitus with hemoglobin A1c goal of less than 8.0% ([facility])* Allergies Active Allergy Reactions Severity Noted Date Comments Adhesive Tape Itching 04/29/2020 Penicillins Rash 02/12/2008 Penicillin G 07/20/2018 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 documented as of this encounter (statuses as of 05/01/2023) Medications Medication Sig Dispensed Refills Start Date End Date Status nystatin (NYSTOP) 719254 UNIT/GM powder Apply topically to affected area 3 times a day. 60 g 1 10/16/2019 Active Dexcom G6 Scada Operator Device Use as directed. To test blood sugars 4 times a day Dx E11.9 1 Each 0 09/14/2020 Active Dexcom G6 Transmitter Use as directed. To test blood sugars 4 times a day. Change every 90 days. Dx E11.9 1 Each 3 09/14/2020 Active OneTouch Verio In Vitro Strip (Glucose Blood) TESTING once daily 100 Strip 3 10/29/2020 Active OneTouch Delica Plus [id number] TESTING once daily 100 Each 10/29/2020 Active Nitroglycerin 0.4 MG Sublingual Tablet Sublingual (Nitrostat) Place 1 Tab under the tongue every 5 minutes as needed for Pain, Chest. up to 3 doses in 15 minutes 25 Tab 11 03/03/2021 Active BiPAP every night at bedtime. 0 [...] change sensor every 10 days 3 Each 09/27/2021 Active Disposable Brief X-LargeIndications: Hypertensive heart disease with chronic diastolic congestive heart failure (HCC),Hepatic cirrhosis, unspecified hepatic cirrhosis type, unspecified whether ascites present (HCC),Other cerebral palsy (HCC),Urinary incontinence, unspecified type,Frequent fecal incontinence Use as directed 60 Each 10/06/2021 Active Spironolactone 25 MG Oral Tablet (Aldactone) Take by mouth 2 Tablets in the morning. 180 Tablet 05/06/2022 Active Levothyroxine Sodium 150 MCG Oral Tablet (Levoxyl)Indication s:Acquired hypothyroidism Take by mouth 1 Tablet in the morning. (at least 30 min prior to breakfast or other meds). 30 Tablet 05/20/2022 Active BD Pen Needle Mini U/F 31G X 5 MM (Insulin Pen Needle)Indications: Type 2 diabetes mellitus with hemoglobin A1c goal of less than 7.0% (HCC) USE TO INJECT INSULIN FOUR TIMES DAILY. 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 APPLY TO SKIN OVER MEDIPORT & COVER 1HR PRIOR TO ACCESSING. 30 g 0 02/01/2023 Active Fluticasone-Salmete rol 250-50 MCG/ACT Inhalation Aerosol [...] 1 02/19/2023 Active Benzonatate 200 MG Oral CapsuleIndications: Bronchitis, complicated Take 1 Capsule by mouth 3 times a day as needed for Cough. 30 Capsule 1 03/07/2023 Active One-A-Day Womens 50+ Oral Tablet Take 1 Tablet by mouth in the morning. 0 Active NovoLOG FlexPen 100 UNIT/ML Subcutaneous Solution Pen-injectorIndicat ions:Type 2 diabetes mellitus with hemoglobin A1c goal of less than 8.0% ([facility]) 35 Units at breakfast, 45 Units before lunch, 82 Units before supper 150 mL 3 03/21/2023 Active Trulicity 4.5 MG/0.5ML Subcutaneous Solution Pen-injector (Dulaglutide)Indica tions:Type 2 diabetes mellitus with hemoglobin A1c goal of less than 7.0% ([facility]) inject 4.5mg ( 1 pen) under [...] AT BEDTIME 90 Tablet 2 04/30/2023 Active Insulin Glargine Solostar 100 UNIT/ML Subcutaneous Solution Pen-injector (Basaglar KwikPen)Indications :Type 2 diabetes mellitus with hemoglobin A1c goal of less than 8.0% (HCC) Inject 46 Units under the skin daily. 45 mL 3 05/01/2023 Active Lantus SoloStar 100 UNIT/ML Subcutaneous Solution Pen-injectorIndicat ions:Type 2 diabetes mellitus with hemoglobin A1c goal of less than 8.0% (HCC) Inject 46 Units under the skin daily. 45 mL 3 03/21/2023 05/01/20 23 Discontinu ed(Medicat ion/Dose Changed) Hospital, Clinic, or Other Facility Administered Medication [...] situation. 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 if a intermediate manager plan is made -continue lexapro Generalized weakness [...] mass index (BMI) of 45.0-49.9 in adult /01/17/2017 Overview: bmi= 48.04 12/09/15 Need for shingles [...] pain 01/24/2012 01/17/2017 Genetic Sleep Disorder Research Other*[id number] 05/13/2011 04/07/2016 Obstructive sleep apnea 01/18/2011 12/27/19 [...] (Prevnar) 05/02/2019 Pneumococcal Conjugate Vacci ne, 20-valent ([id number]) 10/21/2022 Pneumococcal Polysaccharide PPV23 (Pneumovax) 06/01/2010 Seasonal [...] encounter Miscellaneous Notes * Telephone Encounter - Jonas Adhikari RPh - 05/01/2023 10:37 AM EDT Lantus non-formulary. Jonas Atwood RPh, CACP, CDE Clinical Pharmacist [facility] 05/01/2023, 10:40 AM documented in this encounter Plan of Treatment Upcoming Encounters Date Type Specialty Care Team Description 05/17/2023 Office Visit Pharmacy Pharmacist1, [facility] [address] [facility] [place] [address] 05/17/2023 Hem/Onc Treatment Hematology Oncology [place], Chair [address] Hem Onc [address]ery [address] [place] [address] 05/19/2023 Telemedicine [facility] Joselin Dawson CRNP [address] [place] [address] Monika Zamora [facility] [address] [place] [address] 05/22/2023 Office Visit Gastroenterology Lyssa Stout CRNP [address] [place] [address] 06/27/2023 Office Visit Hematology Oncology Tono Sanchez MD [address] [facility] [place] [address] 06/27/2023 Office Visit Pharmacy Pharmacist, [facility] [address] [facility] [place] [place] [address] 07/13/2023 Office Visit Sleep Disorders Lanette Fields CRNP [address] [place] [address] 07/31/2023 Office Visit Family Medicine Vanita Dunn MD [address] [place] [address] 07/31/2023 Laboratory Laboratory [facility] [address] [place] [address] 10/04/2023 Office Visit Gynecology Obstetrics Renetta Martinez MD [address] [place] [address] Scheduled Procedures Name Priority Associated Diagnoses Date/Ti me ESOPHAGOGASTRODUODENOSCOPY ( EGD), FLEXIBLE, TRANSORAL, DIAGNOSTIC Recall Esophagitis COLONOSCOPY FLEXIBLE PROXIMAL DIAGNOSTIC Recall History of colonic polyps Health Maintenance Due Date Last Done Comments DXA Scan 1955 DIABETES-EYE EXAM 06/12/2019 06/12/2018, , 06/12/2018, Additional history exists Zoster Vaccines (3 of 3) 06/23/2020 04/28/2020, 03/ Depression Screening, Annual for Pts 12 and [...] this encounter Medical Devices Implanted Type Area Newscast Producer Device Identifier Shelf Expiration Date Model / Serial / Lot Microtech Sure Clip Implanted:Qty: 2 on 06/03/2020 by Janis Hatch, DO at OR [facility] Clip N/A: Colon 04/21/2022 [facility]-F-26-2 35-C-R / / [id number] documented as of this encounter Visit Diagnoses Diagnosis Type 2 diabetes mellitus with hemoglobin A1c goal of less than 8.0% ([facility])- Primary documented in this encounter Advance Directives Documents on File Type Date Recorded Patient Corporate Financial Analyst Expl anation Advance Directives and Living Will 04/29/2021 ADVANCE DIRECTIVE / LIVING WILL LIVING WILL AND HEALTH CARE POA Power of Associate Data Scientist 04/29/2021 [facility] [...] the patient have Health Care Power of Associate Data Scientist? No Code Status History Code Status Date Activated Date Inactivated Comments Full Code 12/27/2021 2:50 PM 12/27/2021 8:02 PM This order reflects the patients wishes and were consensually agreed upon. Question Answer Comments Discussion of Advance Directives occurred with: Not Discussed Does the patient have a Living Will? No Does the patient have Health Care Power of Associate Data Scientist? No Full Code 03/31/2021 8:57 PM 04/03/2021 [...] Agents on File Name Relationship Healthcare Agent [facility] p Communication Syed Bustos Spouse Emergency Contact Care Teams Box Toe Buffer Relationship Specialty Start Date End Date Vanita Dunn MD [address] [place] [address] PCP - General Family Medicine 03/16/21 documented as of this encounter
--- OUTSIDE RECORDS SUMMARY | 2023-05-10 16:37 | External Medical Summary ---
Author Name Unknown Address Unknown Organization K01:[facility] - [address] [place] [address] Laboratory Report Ordering Provider Test Date Status JACOB CORBETT 04/25/2023 15:21:00 Final Observation Date Value Abnormality Reference (Units ) Status Ferritin 04/25/2023 15:21:00 97 13-150 (ng /mL) Final Performing Location [facility] - [address] [place] [address]
--- OUTSIDE RECORDS SUMMARY | 2023-05-10 16:37 | External Medical Summary | Summary of Care ---
Author Name Unknown Organization [facility] Address [address] [facility] [place] [address] Phone [phone] Care Team Providers Care Luster Applicator Name Role Phone Vanita Dunn MD Primary Care Provid er Reason for Visit * Reason Onset Date Comments [facility]: Maintenance 04/24/2023 Encounter Details Date Type Department Care Team Description 04/24/2023 Telephone [facility], [facility] [address] [place] [address] [facility], Nurse [facility] [address] [place] [address] [facility]: Maintenance Allergies Active Allergy Reactions Severity Noted Date Comments Adhesive Tape Itching 04/29/2020 Penicillins Rash 02/12/2008 Penicillin G 07/20/2018 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 documented as of this encounter (statuses as of 04/24/2023) Medications Medication Sig Dispensed Refills Start Date End Date Status nystatin (NYSTOP) 305180 UNIT/GM powder Apply topically to affected area 3 times a day. 60 g 1 10/16/2019 Active Dexcom G6 Tennis Centre Manager Device Use as directed. To test blood sugars 4 times a day Dx E11.9 1 Each 0 09/14/2020 Active Dexcom G6 Transmitter Use as directed. To test blood sugars 4 times a day. Change every 90 days. Dx E11.9 1 Each 3 09/14/2020 Active OneTouch Verio In Vitro Strip (Glucose Blood) TESTING once daily 100 Strip 3 10/29/2020 Active OneTouch Delica Plus [id number] TESTING once daily 100 Each 10/29/2020 Active [...] as directed 60 Each 5 10/06/2021 Active Spironolactone 25 MG Oral Tablet (Aldactone) Take by mouth 2 Tablets in the morning. 180 Tablet 3 05/06/2022 Active traZODone HCl 50 MG Oral Tablet (Desyrel)Indications :Sleep disturbances TAKE 1 TABLET BY MOUTH AT BEDTIME 90 Tablet 3 05/12/2022 Active Levothyroxine Sodium 150 MCG Oral Tablet (Levoxyl)Indications :Acquired hypothyroidism Take by mouth 1 Tablet in the morning. (at least 30 min prior to breakfast or other meds). 30 Tablet 11 05/20/2022 Active BD Pen Needle Mini U/F 31G X 5 MM (Insulin Pen Needle)Indications:T ype 2 diabetes mellitus with hemoglobin A1c goal of less than 7.0% ([facility]) USE TO INJECT INSULIN FOUR TIMES DAILY. [...] BY MOUTH DAILY with food. 90 Tablet 02/19/2023 Active Atorvastatin Calcium 80 MG Oral [...] Active Lantus SoloStar 100 UNIT/ML Subcutaneous Solution Pen-injectorIndicati ons:Type 2 diabetes mellitus with hemoglobin A1c goal of less than 8.0% (HCC) Inject 46 Units under the skin daily. 45 mL 3 03/21/2023 Active NovoLOG FlexPen 100 UNIT/ML Subcutaneous Solution Pen-injectorIndicati ons:Type 2 diabetes mellitus with hemoglobin A1c goal of less than 8.0% (HCC) 35 Units at breakfast, 45 Units before lunch, 82 Units before supper 150 mL 03/21/2023 Active Trulicity 4.5 MG/0.5ML Subcutaneous Solution Pen-injector (Dulaglutide)Indicat ions:Type 2 diabetes mellitus with hemoglobin A1c goal of less than 7.0% ([facility]) inject 4.5mg ( 1 pen) under skin once weekly 6 mL 3 03/25/2023 Active Lactulose 10 GM/15ML Oral Solution (Constulose) Take 45 mL by mouth in the morning and 45 mL at noon and 45 mL before bedtime. take 45ml by mouth three times daily. 3784 mL 6 03/27/2023 Active Hospital, Clinic, or Other Facility Administered [...] as of this encounter (statuses as of 04/24/2023) Active Problems Problem Noted Date Thrombocytopenia 01/17/2023 [...] as of this encounter (statuses as of 04/24/2023) Resolved Problems Problem Noted Date Resolved Date [...] Achilles tendinitis, right leg 04/08/2019 0 09/13/2021 group home resident 04/08/2019 05/02/2019 Ambulatory dysfunction 04/04/2019 2 Fall 04/04/2019 05/05/2020 Sprain of right ankle 04/04/2019 05/05/2020 Recurrent major depressive disorder, in partial remission 04/04/2019 11/08/2022 Overview: More recent Dx noted on PL Last Assessment & Plan: Seems very depressed about current situation. 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 -continue lexapro Generalized weakness [...] pain 01/24/2012 01/17/2017 Genetic Sleep Disorder Research Other*[id number] 05/13/2011 04/07/2016 Obstructive sleep apnea 01/18/2011 12/27/19 [...] as of this encounter (statuses as of 04/24/2023) Immunizations Name Administration Dates Next Due COVID-19 mRNA, LNP-s, No Pre serve, 2-Dose Series (Moderna) 01/05/2022,07/26/2021,12/21/2020,11/09 HEP A - Hepatitis A (Adult > 18 yrs) 09/24/2018, 03/26/2018 Hepatitis B, 20+ yrs 09/24/2018,04/23/2018,03/26 Pneumococcal Conjugate Vacc, 13 Valent (Prevnar) 05/02/2019 Pneumococcal Conjugate Vacci ne, 20-valent ([id number]) 10/21/2022 Pneumococcal Polysaccharide PPV23 (Pneumovax) 06/01/2010 Seasonal Influenza, Quadriva lent Hd (Fluzone Hd) 07/28/2022,06/10/2021 Seasonal Influenza, Quadriva lent, No Preserve, 6 Mons & Above, IM 06/01/2020,06/05/2019,05/16/2018,06/1306/05/2020 Seasonal Influenza, Quadriva lent, No Preserve, IM [...] encounter Miscellaneous Notes * Telephone Encounter - Michelle Vyas RN - 04/24/2023 9:45 AM EDT Syed, patient's calling to let us now that the patient's Medicare B has been reinstated. Do not see any [facility]. CSI was checked and not active. Routing to UMA Martin. RN [place] materials handler [phone] documented in this encounter Plan of Treatment Upcoming Encounters Date Type Specialty Care Team Description 04/25/2023 Hem/Onc Treatment Hematology Oncology [place], Chair 6 Hem Onc Scenery [address] [facility] [address] 04/25/2023 Office Visit Pharmacy Pharmacist1, [facility] [address] [place] [address] 05/19/2023 Telemedicine [facility] Joselin Dawson CRNP [address] [place] [address] Monika Zamora, [facility] [address] [place] [address] 05/22/2023 Office Visit Gastroenterology Lyssa Stout CRNP [address] [place] [address] 06/27/2023 Office Visit Hematology Oncology Tono Sanchez MD [address] [facility] [address] 07/13/2023 Office Visit Sleep Disorders Lanette Fields CRNP [address] [place] [address] 07/31/2023 Office Visit Family Medicine MonaVanita MD [address] [place] [address] 07/31/2023 Laboratory Laboratory [facility] [address] [place] [address] 10/04/2023 Office Visit Gynecology Obstetrics Renetta Martinez MD [address] [place] [address] Scheduled Procedures Name Priority Associated Diagnoses Date/Ti [...] 2023 07/28/2022, 06/10/2021, 06/01/2020, Additional history exists HbA1c 06/08/2023 12/06/2022, 09/0 04/2022, 01/24/2022, Additional history exists TSH 07/06/2023 07/06/2022, 090 04/2022, 06/10/2021, Additional history exists Mammogram 12/10/2023 12/09/2022, 08/13, [...] this encounter Medical Devices Implanted Type Area Pcb Design Engineer Device Identifier Shelf Expiration Date Model / Serial / Lot Microtech Sure Clip Implanted:Qty: 2 on 06/03/2020 by Janis Hatch DO at OR [facility] Clip N/A: Colon 04/21/2022 [facility] 35-C-R / / [id number] documented as of this encounter Advance Directives Documents on File Type Date Recorded 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 No Code Status History Code Status Date Activated Date Inactivated Comments Full Code 12/27/2021 2:50 PM 12/27/2021 8:02 PM This order reflects the patients wishes and were consensually agreed upon. Question Answer Comments Discussion of Advance Directives occurred with: Not Discussed Does the patient have a Living Will? No Does the patient have Health Care Power of Orthotic Practitioner? No Full Code 03/31/2021 8:57 PM 04/03/2021 [...] Syed Bustos Spouse Emergency Contact Care Teams Luster Applicator Relationship Specialty Start Date End Date Vanita Dunn MD [address], [place] [id number] PCP - General Family Medicine 03/16/21 documented as of this encounter
--- OUTSIDE RECORDS SUMMARY | 2023-05-10 16:37 | External Medical Summary | Summary of Care ---
Author Name Unknown Organization [facility] Address [address] [facility] [place] [address] Phone [phone] Care Team Providers Care Human Resources Executive Name Role Phone Vanita Dunn MD Primary Care Provid er Reason for Visit * Reason Onset Date Comments [facility]: Maintenance 04/21/2023 Encounter Details Date Type Department Care Team Description 04/21/2023 Scheduled Telephone [facility], [facility] [address] [place] [address] July Poe RN [address] [facility] [place] [address] Allergies Active Allergy Reactions Severity Noted Date Comments Adhesive Tape Itching 04/29/2020 Penicillins Rash 02/12/2008 Penicillin G 07/20/2018 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 documented as of this encounter (statuses as of 04/21/2023) Medications Medication Sig Dispensed Refills Start Date End Date Status nystatin (NYSTOP) 060537 UNIT/GM powder Apply topically to affected area 3 times a day. 60 g 1 10/16/2019 Active Dexcom G6 Plating Operator Device Use as directed. To test blood sugars 4 times a day Dx E11.9 1 Each 0 09/14/2020 Active Dexcom G6 Transmitter Use as directed. To test blood sugars 4 times a day. Change every 90 days. Dx E11.9 1 Each 3 09/14/2020 Active OneTouch Verio In Vitro Strip (Glucose Blood) TESTING once daily 100 Strip 3 10/29/2020 Active OneTouch Delica Plus [id number] TESTING once daily 100 Each 3 10/29/2020 Active Nitroglycerin 0.4 MG Sublingual Tablet [...] goal of less than 7.0% ([facility]) USE TO INJECT INSULIN FOUR TIMES [...] goal of less than 8.0% ([facility]) Inject 46 Units under the skin [...] goal of less than 7.0% ([facility]) inject 4.5mg ( 1 pen) under [...] as of this encounter (statuses as of 04/21/2023) Active Problems Problem Noted Date Thrombocytopenia 01/17/2023 [...] as of this encounter (statuses as of 04/21/2023) Resolved Problems Problem Noted Date Resolved Date [...] Achilles tendinitis, right leg 04/08/2019 0 09/13/2021 shelter resident 04/08/2019 05/02/2019 Ambulatory dysfunction 04/04/2019 2 Fall 04/04/2019 05/05/2020 Sprain of right ankle 04/04/2019 05/05/2020 Recurrent major depressive disorder, in partial remission 04/04/2019 11/08/2022 Overview: More recent Dx noted on PL Last Assessment & Plan: Seems very depressed about current situation. 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 if a retirement plan is made -continue lexapro Generalized weakness [...] pain 01/24/2012 01/17/2017 Genetic Sleep Disorder Research Other*[id number] 05/13/2011 04/07/2016 Obstructive sleep apnea 01/18/2011 12/27/19 [...] as of this encounter (statuses as of 04/21/2023) Immunizations Name Administration Dates Next Due COVID-19 mRNA, LNP-s, No Pre serve, 2-Dose Series (Moderna) 01/05/2022,07/26/2021,12/21/2020,11/09 HEP A - Hepatitis A (Adult > 18 yrs) 09/24/2018, 03/26/2018 Hepatitis B, 20+ yrs 09/24/2018,04/23/2018,03/26 Pneumococcal Conjugate Vacc, 13 Valent (Prevnar) 05/02/2019 Pneumococcal Conjugate Vacci ne, 20-valent ([id number]) 10/21/2022 Pneumococcal Polysaccharide PPV23 (Pneumovax) 06/01/2010 Seasonal [...] encounter Miscellaneous Notes * Telephone Encounter - July Poe RN - 04/21/2023 11:35 AM EDT Called and spoke with . He reports they did go up to the Social Security office and was told"they were looking into it". He has not received anything in the mail either. Then said that he did get a letter and took it with them to the social security office but was told they didn't need it. States he was told they were going to get in touch with the clinical nutrition manager and they would be called, but they have not received any call back yet documented in this encounter Plan of Treatment Upcoming Encounters Date Type Specialty Care Team Description 04/25/2023 Hem/Onc Treatment Hematology Oncology [place], Chair 6 Hem Onc Scenery [address] [place] [address] 04/25/2023 Office Visit Pharmacy Pharmacist1, [facility] Sp [address] [place] [address] 05/19/2023 Telemedicine [facility] Joselin Dawson CRNP [address] [place] [address] Monika Zamora, [facility] [address] [place] [address] 05/22/2023 Office Visit Gastroenterology Lyssa Stout CRNP [address] [place] [address] 06/27/2023 Office Visit Hematology Oncology Tono Sanchez MD [address] [place] [address] 07/13/2023 Office Visit Sleep Disorders Lanette Fields CRNP [address] [place] [address] 07/31/2023 Office Visit Family Medicine Vanita Dunn MD [address] [place] [address] 07/31/2023 Laboratory Laboratory [facility] Laboratory [address] [place] [address] 10/04/2023 Office Visit Gynecology Obstetrics Renetta Martinez MD [address] [place] [address] Scheduled Procedures Name Priority Associated Diagnoses Date/Ti [...] 06/01/2020, Additional history exists HbA1c 06/08/2023 12/06/2022, 090 04/2022, 01/24/2022, Additional history exists TSH 07/06/2023 07/06/2022, 0 04/2022, 06/10/2021, Additional history exists Mammogram 12/10/2023 [...] this encounter Medical Devices Implanted Type Area Graduate Recruiter Device Identifier Shelf Expiration Date Model / Serial / Lot Microtech Sure Clip Implanted:Qty: 2 on 06/03/2020 by Janis Hatch DO at OR [facility] Clip N/A: Colon 04/21/2022 [facility]-F-26-2 35-C-R / / [id number] documented as of this encounter Advance Directives Documents on File Type Date Recorded 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 No Code Status History Code Status Date Activated Date Inactivated Comments Full Code 12/27/2021 2:50 PM 12/27/2021 8:02 PM This order reflects the patients wishes and were consensually agreed upon. Question Answer Comments Discussion of Advance Directives occurred with: Not Discussed Does the patient have a Living Will? No Does the patient have Health Care Power of Earth Science Technician? No Full Code 03/31/2021 8:57 PM 04/03/2021 [...] Agents on File Name Relationship Healthcare Agent [facility] Syed Bustos Spouse Emergency Contact [phone] (Mobile) Care Teams Human Resources Executive Relationship Specialty Start Date End Date Vanita Dunn MD [address] [place] [facility] [place] [address] PCP - General Family Medicine 03/16/21 documented as of this encounter
--- OUTSIDE RECORDS SUMMARY | 2023-05-10 16:37 | External Medical Summary | Summary of Care ---
Author Name Unknown Organization [facility] Address [address] [facility] [place] [address] Phone [phone] Care Team Providers Care Mild Disabilities Teacher Name Role Phone Vanita Dunn MD Primary Care Provid er Reason for Visit * Reason Comments IV Therapy Venofer Encounter Details Date Type Department Care Team Description 04/25/2023 Hem/Onc Treatment Hematology/Oncology Treatment, [place] [address] [place] [address] [place], Chair 6 Hem Onc [place] [address] [place] [address] Iron deficiency anemia due to chronic blood loss*; Type 2 diabetes mellitus with hemoglobin A1c goal of less than 8.0% ([facility]) Allergies Active Allergy Reactions Severity Noted Date Comments Adhesive Tape Itching 04/29/2020 Penicillins Rash 02/12/2008 Penicillin G 07/20/2018 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 documented as of this encounter (statuses as of 04/25/2023) Medications Medication Sig Dispensed Refills Start Date End Date Status nystatin (NYSTOP) 875766 UNIT/GM powder Apply topically to affected area 3 times a day. 60 g 1 10/16/2019 Active Dexcom G6 Psychologist Personnel Device Use as directed. To test blood sugars 4 times a day Dx E11.9 1 Each 0 09/14/2020 Active Dexcom G6 Transmitter Use as directed. To test blood sugars 4 times a day. Change every 90 days. Dx E11.9 1 Each 3 09/14/2020 Active OneTouch Verio In Vitro Strip (Glucose Blood) TESTING once daily 100 Strip 3 10/29/2020 Active OneTouch Delica Plus [id number] TESTING once daily 100 Each 10/29/2020 Active [...] days 3 Each 09/27/2021 Active Disposable Brief X-LargeIndications:H ypertensive heart [...] goal of less than 8.0% ([facility]) Inject 46 Units under the skin daily. [...] goal of less than 7.0% ([facility]) inject 4.5mg ( 1 pen) under skin [...] as of this encounter (statuses as of 04/25/2023) Active Problems Problem Noted Date Thrombocytopenia 01/17/2023 [...] as of this encounter (statuses as of 04/25/2023) Resolved Problems Problem Noted Date Resolved Date [...] Achilles tendinitis, right leg 04/08/2019 0 09/13/2021 penitentiary resident 04/08/2019 05/02/2019 Ambulatory dysfunction 04/04/2019 2 Fall 04/04/2019 05/05/2020 Sprain of right ankle 04/04/2019 05/05/2020 Recurrent major depressive disorder, in partial remission 04/04/2019 11/08/2022 Overview: More recent Dx noted on PL Last Assessment & Plan: Seems very depressed about current situation. 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 if a remote computer terminal operator plan is made -continue lexapro Generalized [...] pain 01/24/2012 01/17/2017 Genetic Sleep Disorder Research Other*[id number] 05/13/2011 04/07/2016 Obstructive sleep apnea 01/18/2011 12/27/19 [...] as of this encounter (statuses as of 04/25/2023) Immunizations Name Administration Dates Next Due COVID-19 mRNA, LNP-s, No Pre serve, 2-Dose Series (Moderna) 01/05/2022,07/26/2021,12/21/2020,11/09 HEP A - Hepatitis A (Adult > 18 yrs) 09/24/2018, 03/26/2018 Hepatitis B, 20+ yrs 09/24/2018,04/23/2018,03/26 Pneumococcal Conjugate Vacc, 13 Valent (Prevnar) 05/02/2019 Pneumococcal Conjugate Vacci ne, 20-valent ([id number]) 10/21/2022 Pneumococcal Polysaccharide PPV23 (Pneumovax) 06/01/2010 Seasonal [...] Sign Reading Time Taken Comments Blood Pressure 105/75 04/25/2023 2:40 PM EDT Pulse 73 04/25/2023 2:40 PM EDT Temperature 36.9 C (98.4 F) 04/25/2023 2:40 PM ED T Respiratory Rate 16 04/25/2023 2:40 PM EDT Oxygen Saturation 93% 04/25/2023 2:40 PM EDT Inhaled Oxygen Concentration - - [...] No 03/31/2021 documented as of this encounter Nursing Notes * Shantal Hurtado RN - 04/25/2023 4:37 PM EDT Goals: Patient will remain free from injury. Possible barriers to meeting goals: need for mechanical lift Stability of the patient: Moderately stable - low risk of patient condition declining or worsening Summary regarding today's goals: Met: patient without injury during treatment today Pt tolerated venofer infusion well. No complaints. Discharged in stable condition. * Shantal Hurtado RN - 04/25/2023 4:13 PM EDT Chair 1 Pt here for venofer infusion. No complaints. L port accessed and labs drawn. Safety and Risk for Injury Patient will remain free from injury. Ensure appropriate safety devices are available. Provide and maintain safe environment. documented in this encounter Plan of Treatment Upcoming Encounters Date Type Specialty Care Team Description 05/17/2023 Hem/Onc Treatment Hematology [place], Chair 10 Hem Onc Scene [address] [facility] [place] [address] 05/19/2023 Telemedicine [facility] Joselin Dawson CRNP [address] [place] [address] Monika Zamora, [address] [place] [address] 05/22/2023 Office Visit Gastroenterology Lyssa Stout CRNP [address] [place] [address] 06/27/2023 Office Visit Hematology Oncology Tono Sanchez MD [address] [place] [address] 06/27/2023 Office Visit Pharmacy Pharmacist1, [facility] [address] [facility] [place] [address] 07/13/2023 Office Visit Sleep Disorders Lanette Fields CRNP [address] [place] [address] 07/31/2023 Office Visit Family Medicine Vanita Dunn MD [address] [place] [address] 07/31/2023 Laboratory Laboratory [facility], Laboratory [address] [place] [address] 10/04/2023 Office Visit Gynecology Obstetrics Renetta Martinez MD [address] [place] [address] Pending Results Name Type Priority Associated Diagnoses Date /Time HEMOGLOBIN A1C Lab Routine Type 2 diabetes mellitus with hemoglobin A1c goal of less than 8.0% (HCC) 04/25/2023 3:21 PM EDT FERRITIN Lab STAT Iron deficiency anemia due to chronic blood loss 04/25/2023 3:21 PM EDT Scheduled Orders Name Type Priority Associated Diagnoses Orde r Schedule HEMOGLOBIN A1C Lab Routine Type 2 diabetes mellitus with hemoglobin A1c goal of less than 8.0% (HCC) Expected: 04/25/2023, Expires: 04/25/2024 Scheduled Procedures Name Priority Associated Diagnoses Date/Ti [...] 11/06/2019, 01/09/2019, Additional history exists Albumin/Creatinine Ratio 03/30/202303/30/2 022, 01/11/2019, 02/03/2017, Additional history exists Influenza Vaccine (FLU shot) (#1) 2023 07/28/2022, 06/10/2021, 06/01/2020, Additional history exists HbA1c 06/08/2023 12/06/2022, 09/0 04/2022, 01/24/2022, Additional history exists TSH 07/06/2023 07/06/2022, 09/0 04/2022, 06/10/2021, Additional history exists Mammogram 12/10/2023 [...] this encounter Medical Devices Implanted Type Area Bilingual Operator Device Identifier Shelf Expiration Date Model / Serial / Lot [employer] Sure Clip Implanted:Qty: 2 on 06/03/2020 by Janis Hatch DO at OR [facility] Clip N/A: Colon 04/21/2022 [facility]-F-26-2 35-C-R / / [id number] documented as of this encounter Procedures Procedure Name Priority Date/Time Associated Diagnosis Comments DIFFERENTIAL, AUTOMATED STAT 04/25/2023 3:21 PM EDT Iron deficiency anemia due to chronic blood loss CBC WITH WBC DIFFERENTIAL STAT 04/25/2023 3:21 PM EDT Iron deficiency anemia due to chronic blood loss CBC STAT 04/25/2023 3:21 PM EDT Iron deficiency anemia due to chronic blood loss DIFFERENTIAL, TECHNOLOGIST REVIEW Routine 04/25/2023 3:21 PM EDT Iron deficiency anemia due to chronic blood loss documented in this encounter Results * DIFFERENTIAL, TECHNOLOGIST REVIEW (04/25/2023 3:21 PM EDT) [facility] nRBCs 04/25/2023 4:08 PM EDT [facility] 56-02 Blood Venous blood specimen / Unknown Venipuncture / Unknown 04/25/2023 3:21 PM EDT 04/25/2023 3:32 PM EDT Tono Sanchez MD LAB BLOOD ORDERABLES [facility] [address] [place] [address] * (ABNORMAL) DIFFERENTIAL, AUTOMATED (04/25/2023 3:21 PM EDT) [facility] WBC 3.22(L) 4.00 - 10.80 K/uL 04/25/2023 4:08 PM EDT [facility] 56-02 Neutrophils % 55.7 40.0 - 75.0 % 04/25/2023 4:08 PM EDT [facility] 56-02 Lymphocytes % 19.0 18.0 - 42.0 % 04/25/2023 4:08 PM EDT [facility] 56-02 Monocytes % 17.0(H) 1.0 - 11.0 % 04/25/2023 4:08 PM EDT [facility] 56-02 Eosinophils % 7.7(H) 0.0 - 6.0 % 04/25/2023 4:08 PM EDT [facility] 56-02 Basophils % 0.6 0.0 - 2.0 % 04/25/2023 4:08 PM EDT [facility] 56-02 Absolute Neutrophils 1.73(L) 1.80 - 7.70 K/uL 04/25/2023 4:08 PM EDT [facility] 56-02 Absolute Lymphocytes 0.59(L) 1.00 - 4.80 K/ul 04/25/2023 4:08 PM EDT [facility] 56-02 Absolute Monocytes 0.53 0.00 - 1.10 K/uL 04/25/2023 4:08 PM EDT [facility] 56 Absolute Eosinophils 0.24 0.00 - 0.70 K/uL 04/25/2023 4:08 PM EDT [facility] 56 Absolute Basophils 0.02 0.00 - 0.20 K/uL 04/25/2023 4:08 PM EDT [facility] 56 Blood Venous blood specimen / Unknown Venipuncture / Unknown 04/25/2023 3:21 PM EDT 04/25/2023 3:32 PM EDT Tono Sanchez MD LAB BLOOD ORDERABLES [address] [place] [address] * (ABNORMAL) CBC (04/25/2023 3:21 PM EDT) WBC 3.22(L) 4.00 - 10.80 K/uL 04/25/2023 4:[address] RBC 2.76 3.85 - 5.15 M/uL 04/25/2023 4:08 PM EDT [address] HGB 10.2(L) 12.0 - 15.3 g/dL 04/25/2023 4:08 PM EDT [facility] HCT 31.5(L) 36.0 - 45.2 % 04/25/2023 4:08 PM EDT [facility] 56 MCV 114.1 81.5 - 97.5 fL 04/25/2023 4:08 PM EDT [facility] 56 MCH 37.0 27.0 - 34.0 pg 04/25/2023 4:08 PM EDT [facility] 56 MCHC 32.4 32.0 - 36.0 g/dL 04/25/2023 4:08 PM EDT [facility] 56 RDW 17.2 11.5 - 15.5 % 04/25/2023 4:08 PM EDT [facility] 56 PLT 58(L) 140 - 400 K/uL 04/25/2023 4:08 PM EDT [facility] Comment: Results rechecked. MPV 12.1 6.6 - 11.1 fL 04/25/2023 4:08 PM EDT [facility] Blood Venous blood specimen / Unknown Venipuncture / Unknown 04/25/2023 3:21 PM EDT 04/25/2023 3:32 PM EDT Tono Sanchez MD LAB BLOOD ORDERABLES [facility] [address] [place] [id number] documented in this encounter Visit Diagnoses Diagnosis Iron deficiency anemia due to chronic blood loss- Primary Iron deficiency anemia secondary to blood loss (chronic) Type 2 diabetes mellitus with hemoglobin A1c goal of less than 8.0% ([facility]) documented in this encounter Administered Medications Active Administered Medications - up to 3 most recent administrations Medication Order MAR Action Action Date Dose Rate Site diphenhydrAMINE (Benadryl) inj 50 mg 50 mg, IV Push, ONCE PRN Other, Hypersensitivity Reaction, Starting on Mon04/25/23 at 1502, Until Mon04/26/23 at 1501, For 24 hours EPINEPHrine 1 MG/ML inj 0.3 mg 0.3 mg, Intramuscular, ONCE PRN Other, Hypersensitivity Reaction or Anaphylaxis, Starting on Mon04/25/23 at 1502, Until Mon04/26/23 at 1501, For 24 hours hEParin 100 UNIT/ML Lock Flush inj 500 Units 500 Units (5 mL), IV Lock, PRN Other, IV Flush, Starting on Mon04/25/23 at 1502, Until Mon04/26/23 at 1501, For 24 hours, Do not flush if lock, PICC, or central line not in place; IV infusing or unable to flush. Given 04/25/2023 4:32 PM EDT 500 Units Hydrocortisone Sod Suc (PF) (Solu-Cortef) inj 100 mg 100 mg, IV Push, ONCE PRN Other, Hypersensitivity Reaction, Starting on Mon04/25/23 at 1502, Until Mon04/26/23 at 1501, For 24 hours NSS infusion 500 mL, Intravenous, at 50 mL/hr, CONTINUOUS, Starting on Mon04/25/23 at 1615, Until Mon04/26/23 at 0214 Start Infusion 04/25/2023 2:55 PM EDT 500 mL 50 mL/hr sodium chloride 0.9 % flush/inj 10 mL 10 mL, IV Push, PRN Other, IV Flush, Starting on Mon04/25/23 at 1502, Until Mon04/26/23 at 1501, For 24 hours, Do not flush if lock, PICC, or central line not in place; IV infusing or unable to flush. Given 04/25/2023 4:32 PM EDT 10 mL Inactive Administered Medications - up to 3 most recent administrations Medication Order MAR Action Action Date Dose Rate Site Iron Sucrose (Venofer) 300 mg in NSS 250 mL ivpb 300 mg, IV Piggyback, ONCE, 1 dose, On Mon04/25/23 at 1645, Administer over 90 Minutes Start Infusion 04/25/2023 3:02 PM EDT 300 mg 166.67 mL/hr documented in this encounter Advance Directives Documents on File Type Date Recorded Patient Probate Judge Expl anation Advance Directives and Living Will 04/29/2021 ADVANCE DIRECTIVE / LIVING WILL LIVING WILL AND HEALTH CARE POA Power of Manager Project Management 04/29/2021 [facility] [...] the patient have Health Care Power of Manager Project Management? No Code Status History Code Status Date Activated Date Inactivated Comments Full Code 12/27/2021 2:50 PM 12/27/2021 8:02 PM This order reflects the patients wishes and were consensually agreed upon. Question Answer Comments Discussion of Advance Directives occurred with: Not Discussed Does the patient have a Living Will? No Does the patient have Health Care Power of Manager Project Management? No Full Code 03/31/2021 8:57 PM 04/03/2021 [...] Agents on File Name Relationship Healthcare Agent [facility] p Communication Syed Bustos Spouse Emergency Contact Care Teams Mild Disabilities Teacher Relationship Specialty Start Date End Date Vanita Dunn MD [address] [place] [address] PCP - General Family Medicine 03/16/21 documented as of this encounter
--- OUTSIDE RECORDS SUMMARY | 2023-05-10 16:37 | External Medical Summary ---
Author Name Unknown Address Unknown Organization [facility] [address] Laboratory Report Ordering Provider Test Date Status JACOB CORBETT 04/25/2023 15:21:00 Final Observation Date Value Abnormality Reference (Units ) Status SYNC LEUKOCYTES IN BLOOD BY AUTOMATED COUNT 04/25/2023 15:21:00 3.22 Below low normal 4.00-10.80 (K/uL) Final Segs 04/25/2023 15:21:00 55.7 40.0-75.0 (%) Final Lymphs % 04/25/2023 15:21:00 19.0 18.0-42.0 (%) Final Monos 04/25/2023 15:21:00 17.0 Above high normal 1.0-11.0 (%) Final Eosinophils 04/25/2023 15:21:00 7.7 Above high normal 0.0-6.0 (%) Final Basos 04/25/2023 15:21:00 0.6 0.0-2.0 (%) Final Absolute Segs 04/25/2023 15:21:00 1.73 Below low normal 1.80-7.70 (K/uL) Final Lymphs, absolute 04/25/2023 15:21:00 0.59 Below low normal 1.00-4.80 (K/ul) Final Monos, Abs 04/25/2023 15:21:00 0.53 0.00-1.10 (K/uL) Final Eos, Abs 04/25/2023 15:21:00 0.24 0.00-0.70 (K/uL) Final Basos, Abs 04/25/2023 15:21:00 0.02 0.00-0.20 (K/uL) Final Performing Location [facility] [address]
--- OUTSIDE RECORDS SUMMARY | 2023-05-10 16:37 | External Medical Summary ---
Author Name Unknown Address Unknown Organization [facility] [place] [id number] Laboratory Report Ordering Provider Test Date Status JACOB CORBETT 04/25/2023 15:21:00 Final Observation Date Value Abnormality Reference (Units ) Status Nucleated erythrocytes/100 leukocytes [Ratio] in Blood by Automated count 04/25/2023 15:21:00 Final Performing Location [facility] [place] [id number]
--- OUTSIDE RECORDS SUMMARY | 2023-05-10 16:37 | External Medical Summary | Summary of Care ---
Author Name Unknown Organization [facility] Address [address] [facility] [place] [address] Phone [phone] Care Team Providers Care Assembler Truck Trailer Name Role Phone Vanita Dunn MD Primary Care Provid er Reason for Visit * Reason Comments Diabetes Follow-Up Dosage Adjustment In Person (Anticoag Cl inic) Encounter Details Date Type Department Care Team Description 04/25/2023 Office Visit Pharmacy, [facility] [place] [address] [facility] [place] [address] Pharmacist1, [facility] [address] [place] [address] Type 2 diabetes mellitus with hemoglobin A1c goal of less than 8.0% ([facility])* Allergies Active Allergy Reactions Severity Noted Date Comments Adhesive Tape Itching 04/29/2020 Penicillins Rash 02/12/2008 Penicillin G 07/20/2018 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 documented as of this encounter (statuses as of 04/26/2023) Medications Medication Sig Dispensed Refills Start Date End Date Status nystatin (NYSTOP) 806653 UNIT/GM powder Apply topically to affected area 3 times a day. 60 g 1 10/16/2019 Active Dexcom G6 Receiving Distribution Station Operator Device Use as directed. To test blood sugars 4 times a day Dx E11.9 1 Each 0 09/14/2020 Active Dexcom G6 Transmitter Use as directed. To test blood sugars 4 times a day. Change every 90 days. Dx E11.9 1 Each 3 09/14/2020 Active OneTouch Verio In Vitro Strip (Glucose Blood) TESTING once daily 100 Strip 3 10/29/2020 Active OneTouch Delica Plus [id number] TESTING once daily 100 Each 3 10/29/2020 [...] hemoglobin A1c goal of less than 7.0% ([facility]) USE TO INJECT INSULIN FOUR [...] hemoglobin A1c goal of less than 8.0% ([facility]) Inject 46 Units under the [...] hemoglobin A1c goal of less than 7.0% ([facility]) inject 4.5mg ( 1 pen) [...] as of this encounter (statuses as of 04/26/2023) Active Problems Problem Noted Date Thrombocytopenia 01/17/2023 [...] as of this encounter (statuses as of 04/26/2023) Resolved Problems Problem Noted Date Resolved Date [...] Achilles tendinitis, right leg 04/08/2019 0 09/13/2021 alf resident 04/08/2019 05/02/2019 Ambulatory dysfunction 04/04/2019 2 Fall 04/04/2019 05/05/2020 Sprain of right ankle 04/04/2019 05/05/2020 Recurrent major depressive disorder, in partial remission 04/04/2019 11/08/2022 Overview: More recent Dx noted on PL Last Assessment & Plan: Seems very depressed about current situation. 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 if a fpc plan is made -continue lexapro Generalized weakness [...] pain 01/24/2012 01/17/2017 Genetic Sleep Disorder Research Other*[id number] 05/13/2011 04/07/2016 Obstructive sleep apnea 01/18/2011 12/27/19 [...] as of this encounter (statuses as of 04/26/2023) Immunizations Name Administration Dates Next Due COVID-19 mRNA, LNP-s, No Pre serve, 2-Dose Series (Moderna) 01/05/2022,07/26/2021,12/21/2020,11/09 HEP A - Hepatitis A (Adult > 18 yrs) 09/24/2018, 03/26/2018 Hepatitis B, 20+ yrs 09/24/2018,04/23/2018,03/26 Pneumococcal Conjugate Vacc, 13 Valent (Prevnar) 05/02/2019 Pneumococcal Conjugate Vacci ne, 20-valent ([id number]) 10/21/2022 Pneumococcal Polysaccharide PPV23 (Pneumovax) 06/01/2010 Seasonal [...] as of this encounter Progress Notes * Jonas Atwood V, [facility] - 04/25/2023 2:52 PM EDT Images from the original note were not included. Medication Therapy Disease Management Clinic - Diabetes Management Progress Note Shaina Bustos, identified by name and date of , is a 67 year old female being seen for diabetesmanagement/education. Patient presents for return diabetic visit. DIABETES: Current diabetic medications: INCREASE: Novolog, Inject 35 units before breakfast, 45 units before lunch, and 82 units before supper giving 30U/0U/45U) DECREASE: Lantus pen 46 units daily Metformin ER 500mg daily Trulicity 4.5mg SQ weekly Medication Injection Site: Abdomen. Instructed patient to use thigh or back of arm if out and unable to use abdomen. Lifestyle: Diet: unchanged History of Treatment Barriers: Lifestyle: wheelchair bound Therapy considerations: None Medication: Metformin IR: GM ? Glucose Review/SMBG: Readings obtained from patient device Hypoglycemia: Does your blood sugar go below 70 mg/dL? No Hyperglycemia symptoms present: none Goal <7 Recent Labs Units 04/25/23 1521 12/06/22 1408 05/19/22 1449 HEMOGLOBIN A1C - [facility] % 6.3* 6.0* 7.4* Recent Labs Units 02/01/23 1350 12/06/22 1408 08/30/22 1552 ESTIMATED GLOMERULAR FILTRATION RATE - [facility] mL/min >90 >90 >90 CREATININE - [facility] mg/dL 0.7 0.6 0.6 Lab Results Component Value Date/Time CREATININE - [facility] 0.7 02/01/2023 01:50 PM CREATININE - [facility] 0.6 12/06/2022 02:08 PM CREATININE - [facility] 0.6 08/30/2022 03:52 PM CREATININE - [facility] 0.6 09/24/2020 05:16 PM CREATININE - [facility] 0.6 09/23/2020 02:36 PM CREATININE - [facility] 0.7 08/21/2020 04:35 PM CREATININE, RANDOM URINE - [facility] 131 03/30/2022 02:02 PM CREATININE, RANDOM URINE - [facility] 115 01/11/2019 01:29 PM CREATININE, RANDOM URINE - [facility] 81 02/03/2017 09:58 AM CREATININE, RANDOM URINE - [facility] 168 08/25/2015 01:56 PM CREATININE-OUTSIDE LAB 0.72 12/18/2021 12:00 AM CREATININE-OUTSIDE LAB 0.80 08/09/2021 12:00 AM CREATININE-OUTSIDE LAB 0.77 08/24/2018 12:00 AM HYPERTENSION: Patient on ACEi/ARB: no, BP at goal BP Readings from Last 3 Encounters: 04/13/23 108/64 04/07/23 116/64 04/01/23 108/64 Blood pressure at goal: yes HYPERLIPIDEMIA: Patient is taking moderate or high intensity statin: yes, Atorvastatin 80mg daily HEALTH MAINTENANCE REVIEW: Health Maintenance Due Topic Date Due DXA Scan Never done DIABETES-EYE EXAM 06/12/2019 Zoster Vaccines (3 of 3) 06/23/2020 Depression Screening, Annual for Pts 12 and Over 07/27/2021 COVID-19 Vaccine (5 - Moderna series) 03/02/2022 DIABETES-FOOT EXAM 04/05/2022 Albumin/Creatinine Ratio 03/30/2023 ASSESSMENT & PLAN: ICD-10-CM 1. Type 2 diabetes mellitus with hemoglobin A1c goal of less than 8.0% ([facility]) E11.9 BG Readings - Blood sugars uncontrolled. See above. Medications - Reviewed current regimen, patient is not adherent to regimen. was not giving correct dose of Novolog at meals. Diet, Exercise, Lifestyle - No significant lifestyle changes since last visit. Discussed with patient today. Patient is agreeable to wear Dexcom CGM. Patient aware to contact clinic if any hypoglycemia before next visit. MEDICATION CHANGES: yes, see below; preferred pharmacy: [facility] Medications: INCREASE: Novolog, Inject 35 units before breakfast, 15 units before lunch, and 60 units before supper Lantus pen 46 units daily Metformin ER 500mg daily Trulicity 4.5mg SQ weekly HEALTH MAINTENANCE INTERVENTIONS: Labs: Ordered & Scheduled: HgA1c and Urine Microalbumin Immunizations: needs 3rd shingles and covid booster Foot Exam: needs completed Eye Exam: needs completed Annual Wellness Visit: N/A FOLLOW UP: Return to clinic in 3 weeks 05/17/2023 Jonas Atwood RPh, [facility] Clinical Pharmacist - Baggage Checker Medication Therapy Management Clinic 04/25/2023, 2:53 PM documented in this encounter Plan of Treatment Upcoming Encounters Date Type Specialty Care Team Description 05/17/2023 Office Visit Pharmacy Pharmacist1, [facility] [address] [facility] [place] [address] 05/17/2023 Hem/Onc Treatment Hematology [facility] [place], Chair [address] [place] [address] 05/19/2023 Telemedicine [facility] Joselin Dawson CRNP [address] [place] [address] Monika Zamora [facility] [address] [place] [address] 05/22/2023 Office Visit Gastroenterology Lyssa Stout CRNP [address] [place] [address] 06/27/2023 Office Visit Hematology Oncology Tono Sanchez MD [address] [facility] [place] [address] 06/27/2023 Office Visit Pharmacy Pharmacist1, [facility] [address] [facility] [place] [address] 07/13/2023 Office Visit Sleep Disorders Lanette Fields CRNP [address] [place] [address] 07/31/2023 Office Visit Family Medicine Vanita Dunn MD [address] [place] [address] 07/31/2023 Laboratory Laboratory [facility] [address] [place] [address] 10/04/2023 Office Visit Gynecology Obstetrics Renetta Martinez MD [address] [place] [address] Scheduled Procedures Name Priority Associated Diagnoses Date/Ti [...] this encounter Medical Devices Implanted Type Area Honing Machine Operator Semiautomatic Device Identifier Shelf Expiration Date Model / Serial / Lot Microtech Sure Clip Implanted:Qty: 2 on 06/03/2020 by Janis Hatch DO at OR [facility] Clip N/A: Colon 04/21/2022 [id number]-F-26-2 35-C-R / / [id number] documented as of this encounter Visit Diagnoses Diagnosis Type 2 diabetes mellitus with hemoglobin A1c goal of less than 8.0% (HCC)- Primary documented in this encounter Advance Directives Documents on File Type Date Recorded Patient Operating Engineer Expl anation Advance Directives and Living Will 04/29/2021 ADVANCE DIRECTIVE / LIVING WILL LIVING WILL AND HEALTH CARE POA Power of Route Sales Associate 04/29/2021 [facility]OWER [facility] [...] the patient have Health Care Power of Route Sales Associate? No Code Status History Code Status Date Activated Date Inactivated Comments Full Code 12/27/2021 2:50 PM 12/27/2021 8:02 PM This order reflects the patients wishes and were consensually agreed upon. Question Answer Comments Discussion of Advance Directives occurred with: Not Discussed Does the patient have a Living Will? No Does the patient have Health Care Power of Route Sales Associate? No Full Code 03/31/2021 8:57 PM 04/03/2021 [...] Syed Bustos Spouse Emergency Contact Care Teams Assembler Truck Trailer Relationship Specialty Start Date End Date Vanita Dunn MD [address] [place], [place] [phone] PCP - General Family Medicine 03/16/21 documented as of this encounter
--- OUTSIDE RECORDS SUMMARY | 2023-05-10 16:37 | External Medical Summary | Summary of Care ---
Author Name Unknown Organization [facility] Address [address] [facility] [place] [address] Phone [phone] Care Team Providers Care Mult Au Matic Operator Name Role Phone Vanita Dunn MD Primary Care Provid er Reason for Visit * Reason Comments [facility]: Maintenance Encounter Details Date Type Department Care Team Description 04/13/2023 Home Visit [facility], [facility] [address] [place] [address] July Poe, RN [address] [facility] [place] [address] Allergies Active Allergy Reactions Severity Noted Date Comments Adhesive Tape Itching 04/29/2020 Penicillins Rash 02/12/2008 Penicillin G 07/20/2018 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 documented as of this encounter (statuses as of 04/13/2023) Medications Medication Sig Dispensed Refills Start Date End Date Status nystatin (NYSTOP) 959349 UNIT/GM powder Apply topically to affected area 3 times a day. 60 g 1 10/16/2019 Active Dexcom G6 Deckhand Tuna Boat Device Use as directed. To test blood sugars 4 times a day Dx E11.9 1 Each 0 09/14/2020 Active Dexcom G6 Transmitter Use as directed. To test blood sugars 4 times a day. Change every 90 days. Dx E11.9 1 Each 3 09/14/2020 Active OneTouch Verio In Vitro Strip (Glucose Blood) TESTING once daily 100 Strip 3 10/29/2020 Active OneTouch Delica Plus [id number] TESTING once daily 100 Each 10/29/2020 Active [...] goal of less than 8.0% ([facility]) Inject 46 Units under the [...] goal of less than 7.0% ([facility]) inject 4.5mg ( 1 pen) [...] as of this encounter (statuses as of 04/13/2023) Active Problems Problem Noted Date Thrombocytopenia 01/17/2023 [...] as of this encounter (statuses as of 04/13/2023) Resolved Problems Problem Noted Date Resolved Date [...] Achilles tendinitis, right leg 04/08/2019 0 09/13/2021 snf resident 04/08/2019 05/02/2019 Ambulatory dysfunction 04/04/2019 2 Fall 04/04/2019 05/05/2020 Sprain of right ankle 04/04/2019 05/05/2020 Recurrent major depressive disorder, in partial remission 04/04/2019 11/08/2022 Overview: More recent Dx noted on PL Last Assessment & Plan: Seems very depressed about current situation. 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 if a senior care plan is made -continue lexapro Generalized weakness [...] pain 01/24/2012 01/17/2017 Genetic Sleep Disorder Research Other*[id number] 05/13/2011 04/07/2016 Obstructive sleep apnea 01/18/2011 12/27/19 [...] as of this encounter (statuses as of 04/13/2023) Immunizations Name Administration Dates Next Due COVID-19 mRNA, LNP-s, No Pre serve, 2-Dose Series (Moderna) 01/05/2022,07/26/2021,12/21/2020,11/09 HEP A - Hepatitis A (Adult > 18 yrs) 09/24/2018, 03/26/2018 Hepatitis B, 20+ yrs 09/24/2018,04/23/2018,03/26 Pneumococcal Conjugate Vacc, 13 Valent (Prevnar) 05/02/2019 Pneumococcal Conjugate Vacci ne, 20-valent ([id number]) 10/21/2022 Pneumococcal Polysaccharide PPV23 (Pneumovax) 06/01/2010 Seasonal [...] Sign Reading Time Taken Comments Blood Pressure 108/64 04/13/2023 8:52 AM EDT Pulse 66 04/13/2023 8:52 AM EDT Temperature 36.8 C (98.2 F) 04/13/2023 8:52 AM ED T Respiratory Rate 18 04/13/2023 8:52 AM EDT Oxygen Saturation 96% 04/13/2023 8:52 AM EDT Inhaled Oxygen Concentration - - Weight [...] as of this encounter Progress Notes * July Poe RN - 04/13/2023 7:31 AM EDT [facility] [employer] Repair Supervisor Visit Date: 04/13/2023 Time: 8:31 AM Name: Shaina Bustos : 1955 Current Concerns: Pt seen for return RNCM visit and pt reports bowels have been moving "a couple times a day" Last bowel movement this morning. reports she has been taking the Lactulose 2-3 x a day Pt denies issues with abdominal pain this week Breathing has been at baseline Denies increase in cough Lungs clear throughout Denies pain today Edema is at baseline Vitals stable Has not received paperwork from [employer] yet to get Medicare part B back into effect - was told it would take 10 days (from last week) - plans to go to social security office if does not receive by next week Physical Exam: BP 108/64 | Pulse 66 | Temp 36.8 C (98.2 F) | Resp 18 | SpO2 96% Pain 0 Physical Exam Constitutional: Appearance: She is obese. Cardiovascular: Rate and Rhythm: Normal rate and regular rhythm. Pulses: Normal pulses. Heart sounds: Normal heart sounds. Pulmonary: Effort: Pulmonary effort is normal. Breath sounds: Normal breath sounds. Abdominal: General: Bowel sounds are normal. Palpations: Abdomen is soft. Musculoskeletal: Right lower leg: Edema present. Left lower leg: Edema present. Skin: General: Skin is warm and dry. Neurological: Mental Status: She is alert and oriented to person, place, and time. Problems/Symptoms: Review of Systems Constitutional: Negative. HENT: Negative. Eyes: Negative. Respiratory: Positive for cough (chronic, at baseline) and shortness of breath (at baseline). Cardiovascular: Positive for leg swelling. Gastrointestinal: Negative. Endocrine: Negative. Genitourinary: Negative. Musculoskeletal: Positive for arthralgias and gait problem (non-ambulatory). Skin: Negative. Psychiatric/Behavioral: Negative. Medication Reconciliation: (See medication list) Does patient take medications as ordered: Yes Patient Well Being: PHQ2/9: No questionnaires available. No change in living situation Denies falls [facility]-10 Completed this Visit: No. Routine visit and No falls since last visit Advanced Care Planning: Living Will. Patient's Goals of Care: 1. Remain in home 2. Have a inspector timers cg 3. Get out more Reinforcement/Education: DIABETES: -Blood sugar testing schedule: Twice a day, once in the morning and again 2 hours after a meal. -Blood sugar goals: Less than 120, fasting and less than 180, 2 hours after a meal -Record and take to PCP appointments -Notify your doctor if your blood sugar is consistently above goal -Hypoglycemia (low blood sugar) action plan: If blood sugar is less than 70 or having symptoms of low blood sugar eat or drink a snack of 15gm of carbohydrate (2-3 glucose tablets, glass juice, 1Cnon-fat milk, etc) wait 15 min if blood sugar still low repeat snack, wait 15 minutes if still low call health care provider. Ask provider if a medication adjustment is needed if experiencing low blood sugars frequently, twice a week or more. -Hyperglycemia (high blood sugar) action Plan: Take medications as directed, test blood sugars frequently, if above goal, contact your health care provider. Ask for changes to medication if blood sugars continue to run above goal. -Eat three well balanced meals a day 5 servings fruit/vegetable per day COPD: Pt instructed to: -Call with increased SOB, wheezing, chest tightness, increased cough, increased sputum with change in color or consistency and fever. -Wash hands often -Drink plenty of fluids -Use inhalers as directed, do not stop or skip doses -Avoid stress -Rest when tired or SOB -Avoid triggers -Clean inhalers once a week Reinforced safety education and fall prevention. and Reinforced medication regimen. Timing., Dosing. and Purspose. Treatment/Plan: Continue meds as prescribed Use cpap to keep pulse ox above 90% Use nebs 4x a day Frequent repositioning Low Na , CCD diet Svetlana lift for transfers F/U with heme/onc Be sure to take lactulose to haveat least2 bowel movements per day May take Miralax daily if no bm within 24 hrs Home Interventions Provided: Home Intervention: Other; Evaluation Reinforced current Plan of Care, including self-management and medication regimen Patient's 'Red Flags': 1. No bm in 24 hrs 2. Increased cough with yellow or green sputum 3. Lethargy, sleeping more Patient Needs to Remember: Call [facility] at with any new or worsening health concerns or problems, red flag symptoms. Referrals Needed: Other none Follow Up: Is there cellular connectivity/connectivity in the home? Yes Does the patient have internet in the home? No Patient encouraged to call the intake phone number for all urgent but not emergent issues. Is the patient new to [facility] within the last 30 days? No, Assess appropriateness for upcoming telehealth visits. Cancel telehealth visits & schedule home visit with care team automobile assembler(s)as indicated. Provider is in agreement with Plan of Care: Yes Scheduled to follow up with patient in one week with phone call. July Poe RN 04/13/2023 8:31 AM documented in this encounter Plan of Treatment Upcoming Encounters Date Type Specialty Care Team Description 04/21/2023 Scheduled Telephone [facility] July Poe RN [address] [place] [address] 04/25/2023 Hem/Onc Treatment Hematology Oncology [place], Chair 8 Hem Onc Scenery [address] [facility] [address] [place] [facility] [address] 04/25/2023 Office Visit Pharmacy Pharmacist1, [facility] [address] [place] [address] 05/19/2023 Telemedicine [facility] Joselin Dawson CRNP [address] [place] [address] Monika Zamora [address] [place] [address] 05/22/2023 Office Visit Gastroenterology Lyssa Stout CRNP [address] [place] [address] 06/27/2023 Office Visit Hematology Oncology Tono Sanchez MD [address] [place] [address] 07/13/2023 Office Visit Sleep Disorders Lanette Fields CRNP [address] [place] [address] 07/31/2023 Office Visit Family Medicine Vanita Dunn MD [address] [place] [address] 07/31/2023 Laboratory Laboratory [facility] [address] [place] [address] 10/04/2023 Office Visit Gynecology Obstetrics Renetta Martinez MD [address] [place] [address] Scheduled Procedures Name Priority Associated Diagnoses Date/Ti [...] this encounter Medical Devices Implanted Type Area Avionics Engineer Device Identifier Shelf Expiration Date Model / Serial / Lot Microtech Sure Clip Implanted:Qty: 2 on 06/03/2020 by Janis Hatch DO at OR [facility] Clip N/A: Colon 04/21/2022 [facility]-F-26-2 35-C-R / / [id number] documented as of this encounter Advance Directives Documents on File Type Date Recorded Patient Help Desk Consultant Expl anation Advance Directives and Living Will 04/29/2021 ADVANCE DIRECTIVE / LIVING WILL LIVING WILL AND HEALTH CARE POA Power of Labor Relations Representative 04/29/2021 POWER [facility] A [facility] [...] the patient have Health Care Power of Labor Relations Representative? No Code Status History Code Status Date Activated Date Inactivated Comments Full Code 12/27/2021 2:50 PM 12/27/2021 8:02 PM This order reflects the patients wishes and were consensually agreed upon. Question Answer Comments Discussion of Advance Directives occurred with: Not Discussed Does the patient have a Living Will? No Does the patient have Health Care Power of Labor Relations Representative? No Full Code 03/31/2021 8:57 PM 04/03/2021 [...] Agents on File Name Relationship Healthcare Agent [facility] p Communication Syed Bustos Spouse Emergency Contact Care Teams Mult Au Matic Operator Relationship Specialty Start Date End Date Vanita Dunn MD [address] [place] [address] PCP - General Family Medicine 03/16/21 documented as of this encounter
--- OUTSIDE RECORDS SUMMARY | 2023-05-10 16:37 | External Medical Summary | Summary of Care ---
Author Name Unknown Organization [facility] Address [address] [facility] [place] [address] Phone [phone] Care Team Providers Care Annual Giving Director Name Role Phone Vanita Dunn MD Primary Care Provid er Reason for Visit * Reason Onset Date Comments [facility]: Maintenance 04/24/2023 Encounter Details Date Type Department Care Team Description 04/24/2023 Telephone [facility], [facility] 132 [place] [address] [facility], Nurse [facility] 132 [place] [address] [facility]: Maintenance Allergies Active Allergy Reactions Severity Noted Date Comments Adhesive Tape Itching 04/29/2020 Penicillins Rash 02/12/2008 Penicillin G 07/20/2018 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 documented as of this encounter (statuses as of 04/24/2023) Medications Medication Sig Dispensed Refills Start Date End Date Status nystatin (NYSTOP) 660388 UNIT/GM powder Apply topically to affected area 3 times a day. 60 g 1 10/16/2019 Active Dexcom G6 Catering Associate Device Use as directed. To test blood sugars 4 times a day Dx E11.9 1 Each 0 09/14/2020 Active Dexcom G6 Transmitter Use as directed. To test blood sugars 4 times a day. Change every 90 days. Dx E11.9 1 Each 3 09/14/2020 Active OneTouch Verio In Vitro Strip (Glucose Blood) TESTING once daily 100 Strip 3 10/29/2020 Active OneTouch Delica Plus [id number] TESTING once daily 100 Each 10/29/2020 Active [...] goal of less than 7.0% ([facility]) USE TO INJECT INSULIN FOUR TIMES DAILY. [...] goal of less than 7.0% ([facility]) inject 4.5mg ( 1 pen) under skin [...] current situation. 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 Michelle Vyas. RN GA manager operations and procurement [phone] documented in this encounter Plan of Treatment Upcoming Encounters Date Type Specialty Care Team Description 04/25/2023 Hem/Onc Treatment Hematology Oncology Park, Chair 6 Hem Onc Scenery [address] [place] [address] 04/25/2023 Office Visit Pharmacy Pharmacist1, [facility] Sp [address] [place] [address] 05/19/2023 [facility]medicine [facility] Joselin Dawson CRNP [address] [place] [address] Monika Zamora, [facility] [place] Skating Front Desk Clerk [address] [place] [address] [place] [address] 05/22/2023 Office Visit Gastroenterology Lyssa Stout CRNP [address] [place] [address] 06/27/2023 Office Visit Hematology Oncology Tono Sanchez MD 200 [place] [address] 07/13/2023 Office Visit Sleep Disorders Lanette Fields CRNP [address] [place] [address] 07/31/2023 Office Visit Family Medicine Vanita Dunn MD [address] [place] [address] 07/31/2023 Laboratory Laboratory [facility] Laboratory [address] [place] [address] 10/04/2023 Office Visit Gynecology Obstetrics Renetta Martinez MD [address] [place] [address] Scheduled Procedures Name Priority Associated Diagnoses Date/Ti [...] 06/01/2020, Additional history exists HbA1c 06/08/2023 12/06/2022, 0 04/2022, 01/24/2022, Additional history exists TSH 07/06/2023 [...] this encounter Medical Devices Implanted Type Area Elevator Conductor Device Identifier Shelf Expiration Date Model / Serial / Lot Microtech Sure Clip Implanted:Qty: 2 on 06/03/2020 by Janis Hatch DO at OR [facility] Clip N/A: Colon 04/21/2022 [facility]-F-26-2 35-C-R / / [id number] documented as of this encounter Advance Directives Documents on File Type Date Recorded Patient Adobe Ball Mixer Expl anation Advance Directives and Living Will 04/29/2021 ADVANCE DIRECTIVE / LIVING WILL LIVING WILL AND HEALTH CARE POA Power of Whirley Operator 04/29/2021 POWER OF A [facility] [...] the patient have Health Care Power of Whirley Operator? No Code Status History Code Status Date Activated Date Inactivated Comments Full Code 12/27/2021 2:50 PM 12/27/2021 8:02 PM This order reflects the patients wishes and were consensually agreed upon. Question Answer Comments Discussion of Advance Directives occurred with: Not Discussed Does the patient have a Living Will? No Does the patient have Health Care Power of Whirley Operator? No Full Code 03/31/2021 8:57 PM [...] Syed Bustos Spouse Emergency Contact Care Teams Annual Giving Director Relationship Specialty Start Date End Date Vanita Dunn MD [address] [facility] [place] [phone] PCP - General Family Medicine 03/16/21 documented as of this encounter
--- OUTSIDE RECORDS SUMMARY | 2023-05-10 16:37 | External Medical Summary ---
Author Name Unknown Address Unknown Organization [id number][facility] [place] [address] [facility] [address] Laboratory Report Ordering Provider Test Date Status NITISH REYES V 04/25/2023 15:21:00 Final Observation Date Value Abnormality Reference (Units ) Status HbA1C 04/25/2023 15:21:00 6.3 Above high normal 4. 0-5.6 (%) Final Performing Location [facility] [place] [address] [facility] [address]
--- OUTSIDE RECORDS SUMMARY | 2023-05-10 16:37 | External Medical Summary ---
Author Name Unknown Address Unknown Organization K09:[facility] [place] [address] [address] Laboratory Report Ordering Provider Test Date Status JACOB CORBETT 04/25/2023 15:21:00 Final Observation Date Value Abnormality Reference (Units ) Status WBC, Total 04/25/2023 15:21:00 3.22 Below low normal 4. 00-10.80 (K/uL) Final RBC 04/25/2023 15:21:00 2.76 3.85-5.15 (M/uL) Final Hemoglobin 04/25/2023 15:21:00 10.2 Below low normal 12 .0-15.3 (g/dL) Final HCT 04/25/2023 15:21:00 31.5 Below low normal 36. 0-45.2 (%) Final MCV 04/25/2023 15:21:00 114.1 81.5-97.5 (fL) Final MCH 04/25/2023 15:21:00 37.0 27.0-34.0 (pg) Final MCHC 04/25/2023 15:21:00 32.4 32.0-36.0 (g/dL) Final RDW 04/25/2023 15:21:00 17.2 11.5-15.5 (%) Final Platelets 04/25/2023 15:21:00 58 Below low normal 140 -400 (K/uL) Final Performing Location [facility] [place] [address] [address]
--- OUTSIDE RECORDS SUMMARY | 2023-05-10 16:38 | External Medical Summary | Summary of Care ---
Author Name Unknown Organization [facility] Address [address] [facility] [place] [address] Phone [phone] Care Team Providers Care Fiberglass Quality Technician Name Role Phone Vanita Dunn MD Primary Care Provid er Reason for Visit * Reason Onset Date Comments [facility]: Maintenance 04/05/2023 Encounter Details Date Type Department Care Team Description 04/05/2023 Telephone [facility], [facility] 132 [facility] [place] [address] [facility], Nurse [facility] 132 [place] [address] [facility]: Maintenance Allergies Active Allergy Reactions Severity Noted Date Comments Adhesive Tape Itching 04/29/2020 Penicillins Rash 02/12/2008 Penicillin G 07/20/2018 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 documented as of this encounter (statuses as of 04/05/2023) Medications Medication Sig Dispensed Refills Start Date End Date Status nystatin (NYSTOP) 282927 UNIT/GM powder Apply topically to affected area 3 times a day. 60 g 1 10/16/2019 Active Dexcom G6 Hearing Consultant Device Use as directed. To test blood sugars 4 times a day Dx E11.9 1 Each 0 09/14/2020 Active Dexcom G6 Transmitter Use as directed. To test blood sugars 4 times a day. Change every 90 days. Dx E11.9 1 Each 3 09/14/2020 Active OneTouch Verio In Vitro Strip (Glucose Blood) TESTING once daily 100 Strip 3 10/29/2020 Active OneTouch Delica Plus [id number] TESTING once daily 100 Each 10/29/2020 Active [...] hemoglobin A1c goal of less than 7.0% ([facility]) USE TO INJECT INSULIN FOUR [...] hemoglobin A1c goal of less than 7.0% ([facility]) inject 4.5mg ( 1 pen) [...] as of this encounter (statuses as of 04/05/2023) Active Problems Problem Noted Date Thrombocytopenia 01/17/2023 [...] as of this encounter (statuses as of 04/05/2023) Resolved Problems Problem Noted Date Resolved Date [...] Achilles tendinitis, right leg 04/08/2019 0 09/13/2021 senior care resident 04/08/2019 05/02/2019 Ambulatory dysfunction 04/04/2019 2 Fall 04/04/2019 05/05/2020 Sprain of right ankle 04/04/2019 05/05/2020 Recurrent major depressive disorder, in partial remission 04/04/2019 11/08/2022 Overview: More recent Dx noted on PL Last Assessment & Plan: Seems very depressed about current situation. 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 -continue lexapro Generalized [...] pain 01/24/2012 01/17/2017 Genetic Sleep Disorder Research Other*[id number] 05/13/2011 04/07/2016 Obstructive sleep apnea 01/18/2011 12/27/19 [...] as of this encounter (statuses as of 04/05/2023) Immunizations Name Administration Dates Next Due COVID-19 mRNA, LNP-s, No Pre serve, 2-Dose Series (Moderna) 01/05/2022,07/26/2021,12/21/2020,11/09 HEP A - Hepatitis A (Adult > 18 yrs) 09/24/2018, 03/26/2018 Hepatitis B, 20+ yrs 09/24/2018,04/23/2018,03/26 Pneumococcal Conjugate Vacc, 13 Valent (Prevnar) 05/02/2019 Pneumococcal Conjugate Vacci ne, 20-valent ([id number]) 10/21/2022 Pneumococcal Polysaccharide PPV23 (Pneumovax) 06/01/2010 Seasonal [...] Telephone Encounter - Michelle Vyas RN - 04/05/2023 11:33 AM EDT Syed, patient's calling to see if the results xray results were available. Chart reviewed. No bowel obstruction of or ileus. He said his is doing good. He said she will continue to take lactulose as ordered. Will call with new/worsening symptoms. Routed to care team Michelle Vyas. RN GA mica inspector [phone] documented in this encounter Plan of Treatment Upcoming Encounters Date Type Specialty Care Team Description 04/11/2023 Hem/Onc Treatment Hematology Oncology Park, Chair 11 Hem Onc Scenery 200 [facility] [place] [address] 04/11/2023 Office Visit Pharmacy Pharmacist1, [facility] [address] [place] [address] 04/13/2023 Home Visit [facility] July Poe RN [address] [address] 05/19/2023 Telemedicine [facility] Joselin Dawson CRNP [address] [place] [address] Monika Zamora, [facility] Loan Secretary [address] [place] [address] [place] [address] 05/22/2023 Office Visit Gastroenterology Lyssa Stout CRNP [address] [place] [address] 06/27/2023 Office Visit Hematology Oncology Tono Sanchez MD [address] [place] [address] 07/13/2023 Office Visit Sleep Disorders Lanette Fields CRNP [address] [place] [address] 07/31/2023 Office Visit Family Medicine Vanita Dunn MD [address] [place] [address] 07/31/2023 Laboratory Laboratory [facility] Laboratory [address] [place] [address] 10/04/2023 Office Visit Gynecology Obstetrics Renetta Martinez MD [address] [place] [address] Scheduled Procedures Name Priority Associated Diagnoses Date/Ti [...] this encounter Medical Devices Implanted Type Area Limb Driver Device Identifier Shelf Expiration Date Model / Serial / Lot Microtech Sure Clip Implanted:Qty: 2 on 06/03/2020 by Janis Hatch DO at OR [facility] Clip N/A: Colon 04/21/2022 [facility]-F-26-2 35-C-R / / [id number] documented as of this encounter Advance Directives Documents on File Type Date Recorded Patient Insurance Customer Service Specialist Expl anation Advance Directives and Living Will 04/29/2021 ADVANCE DIRECTIVE / LIVING WILL LIVING WILL AND HEALTH CARE POA Power of Nnp 04/29/2021 POWER OF A [facility] [...] the patient have Health Care Power of Nnp? No Code Status History Code Status Date Activated Date Inactivated Comments Full Code 12/27/2021 2:50 PM 12/27/2021 8:02 PM This order reflects the patients wishes and were consensually agreed upon. Question Answer Comments Discussion of Advance Directives occurred with: Not Discussed Does the patient have a Living Will? No Does the patient have Health Care Power of Nnp? No Full Code 03/31/2021 8:57 PM 04/03/2021 [...] Agents on File Name Relationship Healthcare Agent [facility] p Communication Syed Bustos Spouse Emergency Contact Care Teams Fiberglass Quality Technician Relationship Specialty Start Date End Date Vanita Dunn MD [address] [place] [address] PCP - General Family Medicine 03/16/21 documented as of this encounter
--- OUTSIDE RECORDS SUMMARY | 2023-05-10 16:38 | External Medical Summary | Summary of Care ---
Author Name Unknown Organization [facility] Address [address] [facility] [place] [address] Phone [phone] Care Team Providers Care Creative Services Manager Name Role Phone Vanita Dunn MD Primary Care Provid er Reason for Visit * Reason Onset Date Comments Follow Up 04/02/2023 Encounter Details Date Type Department Care Team Description 04/02/2023 Scheduled Telephone [facility], [facility] 132 [facility] [place] [address] [facility], Nurse [facility] 132 [place] [address] Allergies Active Allergy Reactions Severity Noted Date Comments Adhesive Tape Itching 04/29/2020 Penicillins Rash 02/12/2008 Penicillin G 07/20/2018 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 documented as of this encounter (statuses as of 04/02/2023) Medications Medication Sig Dispensed Refills Start Date End Date Status nystatin (NYSTOP) 760727 UNIT/GM powder Apply topically to affected area 3 times a day. 60 g 1 10/16/2019 Active Dexcom G6 Presentation Designer Device Use as directed. To test blood sugars 4 times a day Dx E11.9 1 Each 0 09/14/2020 Active Dexcom G6 Transmitter Use as directed. To test blood sugars 4 times a day. Change every 90 days. Dx E11.9 1 Each 3 09/14/2020 Active OneTouch Verio In Vitro Strip (Glucose Blood) TESTING once daily 100 Strip 3 10/29/2020 Active OneTouch Delica Plus [id number] TESTING once daily 100 Each 3 10/29/2020 [...] than 8.0% ([facility]) Inject 46 Units under the skin [...] as of this encounter (statuses as of 04/02/2023) Active Problems Problem Noted Date Thrombocytopenia 01/17/2023 [...] as of this encounter (statuses as of 04/02/2023) Resolved Problems Problem Noted Date Resolved Date [...] current situation. 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 -continue lexapro Generalized weakness [...] pain 01/24/2012 01/17/2017 Genetic Sleep Disorder Research Other*[id number] 05/13/2011 04/07/2016 Obstructive sleep apnea 01/18/2011 12/27/19 [...] as of this encounter (statuses as of 04/02/2023) Immunizations Name Administration Dates Next Due COVID-19 mRNA, LNP-s, No Pre serve, 2-Dose Series (Moderna) 01/05/2022,07/26/2021,12/21/2020,11/09 HEP A - Hepatitis A (Adult > 18 yrs) 09/24/2018, 03/26/2018 Hepatitis B, 20+ yrs 09/24/2018,04/23/2018,03/26 Pneumococcal Conjugate Vacc, 13 Valent (Prevnar) 05/02/2019 Pneumococcal Conjugate Vacci ne, 20-valent ([id number]) 10/21/2022 Pneumococcal Polysaccharide PPV23 (Pneumovax) 06/01/2010 Seasonal [...] encounter Miscellaneous Notes * Telephone Encounter - Rosy White RN - 04/02/2023 10:30 AM EDT Phone call for follow up abdominal discomfort. Mobile abd xray ordered yesterday. Xray completed this am. Patient reports feeling better today. Denies pain. Denies nausea/vomiting. Bowels have slowed down-encouraged to take Lactulose as prescribed. to call [facility] with any worsening symptoms. documented in this encounter Plan of Treatment Upcoming Encounters Date Type Specialty Care Team Description 04/11/2023 Hem/Onc Treatment Hematology Oncology [place], Chair 2 Hem Onc [facility] 200 [facility] [place] [address] 04/11/2023 Office Visit Pharmacy Pharmacist1, [facility] Sp 200 [facility] [place] [address] 04/13/2023 Home Visit [facility] July Poe RN [address] [place] [address] 05/19/2023 Telemedicine [facility] Joselin Dawson CRNP [address] [place] [address] Monika Zamora, [facility] Morning Show Newscast Producer [address] [place] [address] [place] [address] 05/22/2023 Office Visit Gastroenterology Lyssa Stout CRNP [address] [place] [address] 06/27/2023 Office Visit Hematology Oncology Tono Sanchez MD 200 [facility] [place] [address] 07/13/2023 Office Visit Sleep Disorders Lanette Fields CRNP [address] [place] [address] 07/31/2023 Office Visit Family Medicine Vanita Dunn MD [address] [place] [address] 07/31/2023 Laboratory Laboratory [facility] Laboratory [address] [place] [address] 10/04/2023 Office Visit Gynecology Obstetrics Renetta Martinez MD [address] [place] [address] Scheduled Procedures Name Priority Associated Diagnoses Date/Ti [...] this encounter Medical Devices Implanted Type Area Dimensional Integration Engineer Device Identifier Shelf Expiration Date Model / Serial / Lot Microtech Sure Clip Implanted:Qty: 2 on 06/03/2020 by Janis Hatch DO at OR [facility] Clip N/A: Colon 04/21/2022 [facility]-F-26-2 35-C-R / / [id number] documented as of this encounter Advance Directives Documents on File Type Date Recorded Patient 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 No Code Status History Code Status Date Activated Date Inactivated Comments Full Code 12/27/2021 2:50 PM 12/27/2021 8:02 PM This order reflects the patients wishes and were consensually agreed upon. Question Answer Comments Discussion of Advance Directives occurred with: Not Discussed Does the patient have a Living Will? No Does the patient have Health Care Power of Research Director? No Full Code 03/31/2021 8:57 PM 04/03/2021 [...] Agents on File Name Relationship Healthcare Agent [facility] Communication Syed Bustos Spouse Emergency Contact Care Teams Creative Services Manager Relationship Specialty Start Date End Date Vanita Dunn MD [address] [place] [phone] PCP - General Family Medicine 03/16/21 documented as of this encounter
--- OUTSIDE RECORDS SUMMARY | 2023-05-10 16:38 | External Medical Summary | Summary of Care ---
Author Name Unknown Organization [facility] Address [address] [facility] [place] [place] [address] Phone [phone] Care Team Providers Care Paving Foreman Name Role Phone Vanita Dunn MD Primary Care Provid er Reason for Visit * Reason Onset Date Comments [facility]: Acute 04/01/2023 Encounter Details Date Type Department Care Team Description 04/01/2023 Scheduled Telephone [facility], [facility] [address] [place] [address] [facility], Nurse [facility] [address] [place] [address] Canceled (Clinician Appt Cancel Appt Not Needed) Allergies Active Allergy Reactions Severity Noted Date Comments Adhesive Tape Itching 04/29/2020 Penicillins Rash 02/12/2008 Penicillin G 07/20/2018 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 documented as of this encounter (statuses as of 04/04/2023) Medications Medication Sig Dispensed Refills Start Date End Date Status nystatin (NYSTOP) 774824 UNIT/GM powder Apply topically to affected area 3 times a day. 60 g 1 10/16/2019 Active Dexcom G6 Superintendent Recreation Device Use as directed. To test blood sugars 4 times a day Dx E11.9 1 Each 0 09/14/2020 Active Dexcom G6 Transmitter Use as directed. To test blood sugars 4 times a day. Change every 90 days. Dx E11.9 1 Each 3 09/14/2020 Active OneTouch Verio In Vitro Strip (Glucose Blood) TESTING once daily 100 Strip 3 10/29/2020 Active OneTouch Delica Plus [id number] TESTING once daily 100 Each 10/29/2020 Active [...] A1c goal of less than 8.0% ([facility]ER[facility]) Inject 46 Units under the [...] A1c goal of less than 7.0% ([facility]) inject 4.5mg ( 1 pen) [...] as of this encounter (statuses as of 04/04/2023) Active Problems Problem Noted Date Thrombocytopenia 01/17/2023 [...] as of this encounter (statuses as of 04/04/2023) Resolved Problems Problem Noted Date Resolved Date [...] current situation. 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 -continue lexapro [...] pain 01/24/2012 01/17/2017 Genetic Sleep Disorder Research Other*[id number] 05/13/2011 04/07/2016 Obstructive sleep apnea 01/18/2011 12/27/19 [...] as of this encounter (statuses as of 04/04/2023) Immunizations Name Administration Dates Next Due COVID-19 mRNA, LNP-s, No Pre serve, 2-Dose Series (Moderna) 01/05/2022,07/26/2021,12/21/2020,11/09 HEP A - Hepatitis A (Adult > 18 yrs) 09/24/2018, 03/26/2018 Hepatitis B, 20+ yrs 09/24/2018,04/23/2018,03/26 Pneumococcal Conjugate Vacc, 13 Valent (Prevnar) 05/02/2019 Pneumococcal Conjugate Vacci ne, 20-valent ([id number]) 10/21/2022 Pneumococcal Polysaccharide PPV23 (Pneumovax) 06/01/2010 Seasonal [...] encounter Miscellaneous Notes * Telephone Encounter - Lakeshia Flores RN - 04/01/2023 10:54 AM EDT [facility] hydroelectric machinery mechanic helper Acute Call Date: 04/01/2023 Time: 10:55 AM Name: Shaina Bustos : 1955 Caller: Syed Relationship to spouse No chief complaint on file. HPI: Shaina Bustos is a 67 year old female whose spouse is calling [facility] to report that patient was constipated yesterday and took her lactulose along with dulcolax and started having diarrhea yesterday all day and has had 2 loose BM's this morning. Spouse did administer AM dose of lactulose, 30ml today. Spoke with Shaina, notes her bilateral lower abdomen hurts, primarily the side region is hard and tender to touch. Is passing gas since yesterday, denies nausea, denies vomiting, -SOB, -CP, -dizziness, -light headedness, + incontinent of bowel Nursing Assessment: Patient's chief complaint for this call: Other, describe diarrhea Pain Has pain Pain level: 5 Location: bilateral lower abdomen, primarily on the sides Quality of Pain: aching Does the pain radiate: No Baseline Assessment Able to performing ADLs at baseline (walking, daily tasks, etc.): No Chief Complaint is related to a chronic condition: Unknown Patient prescribed oxygen? Yes, 2lpm at HSL/min Patient has been ordered DME equipment (assistive devices, respiratory equipment, etc.): Unknown Medication Reconciliation: Received flu shot this season: Yes Taking medication as ordered: Yes Medications ordered/taking to treat reason for call: No Heart failure symptoms: Unknown COPD exacerbation symptoms: No Reinforcement Education: Follow BRAT diet today Routed to Dr. Sneed for recommendations/X-ray 24/48 hour phone call follow ups scheduled Treatment/Plan: Level of call: Acute Appointment scheduled for same day: TBD Provider Name: Rosy Koch Treatment plan until appointment: BRAT Diet ARASH Rodriguez Crop Farm Helper [facility] documented in this encounter Plan of Treatment Upcoming Encounters Date Type Specialty Care Team Description 04/11/2023 Hem/Onc Treatment Hematology Oncology [place], Chair 11 Hem Onc [facility] [address] [facility] [place] [address] 04/11/2023 Office Visit Pharmacy Pharmacist1, [facility] [address] [facility] [place] [address] 04/13/2023 Home Visit [facility] July Poe RN [address] [place] [address] 05/19/2023 Telemedicine [facility] Joselin Dawson CRNP [address] [place] [address] Monika Zamora, [facility] [address] [place] [address] 05/22/2023 Office Visit Gastroenterology Lyssa Stout CRNP [address] [place] [address] 06/27/2023 Office Visit Hematology Oncology Tono Sanchez MD [address] [place] [address] 07/13/2023 Office Visit Sleep Disorders Lanette Fields CRNP [address] [place] [address] 07/31/2023 Office Visit Family Medicine Vanita Dunn MD [address] [place] [address] 07/31/2023 Laboratory Laboratory [facility] Laboratory [address] [place] [address] 10/04/2023 Office Visit Gynecology Obstetrics Renetta Martinez MD [address] [place] [address] Scheduled Procedures Name Priority Associated Diagnoses Date/Ti [...] this encounter Medical Devices Implanted Type Area Global Head Advertiser Solutions Device Identifier Shelf Expiration Date Model / Serial / Lot Microtech Sure Clip Implanted:Qty: 2 on 06/03/2020 by Janis Hatch DO at OR [facility] Clip N/A: Colon 04/21/2022 [facility]-F-26-2 35-C-R / / [id number] documented as of this encounter Advance Directives Documents on File Type Date Recorded Patient Third Cook Expl anation Advance Directives and Living Will 04/29/2021 ADVANCE DIRECTIVE / LIVING WILL LIVING WILL AND HEALTH CARE POA Power of Chocolate Temperer 04/29/2021 POWER OF A [facility] [...] the patient have Health Care Power of Chocolate Temperer? No Code Status History Code Status Date Activated Date Inactivated Comments Full Code 12/27/2021 2:50 PM 12/27/2021 8:02 PM This order reflects the patients wishes and were consensually agreed upon. Question Answer Comments Discussion of Advance Directives occurred with: Not Discussed Does the patient have a Living Will? No Does the patient have Health Care Power of Chocolate Temperer? No Full Code 03/31/2021 8:57 PM 04/03/2021 [...] Agents on File Name Relationship Healthcare Agent [facility] p Communication Syed Bustos Spouse Emergency Contact Care Teams Paving Foreman Relationship Specialty Start Date End Date Vanita Dunn MD [address] [place] [address] PCP - General Family Medicine 03/16/21 documented as of this encounter
--- OUTSIDE RECORDS SUMMARY | 2023-05-10 16:38 | External Medical Summary | Summary of Care ---
Author Name Unknown Organization [facility] Address [address] [facility] [address] Phone [phone] Care Team Providers Care Splicing Supervisor Name Role Phone Vanita Dunn MD Primary Care Provid er Reason for Visit * Reason Onset Date Comments Appointment 04/11/2023 Encounter Details Date Type Department Care Team Description 04/11/2023 Telephone Pharmacy Call Center [address] [place] [address] Pharmacist1, [facility] [place] [address] Appointment Allergies Active Allergy Reactions Severity Noted Date Comments Adhesive Tape Itching 04/29/2020 Penicillins Rash 02/12/2008 Penicillin G 07/20/2018 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 documented as of this encounter (statuses as of 04/11/2023) Medications Medication Sig Dispensed Refills Start Date End Date Status nystatin (NYSTOP) 226832 UNIT/GM powder Apply topically to affected area 3 times a day. 60 g 1 10/16/2019 Active Dexcom G6 Surgical Pathologist Device Use as directed. To test blood sugars 4 times a day Dx E11.9 1 Each 0 09/14/2020 Active Dexcom G6 Transmitter Use as directed. To test blood sugars 4 times a day. Change every 90 days. Dx E11.9 1 Each 3 09/14/2020 Active OneTouch Verio In Vitro Strip (Glucose Blood) TESTING once daily 100 Strip 3 10/29/2020 Active OneTouch Delica Plus [id number] TESTING once daily 100 Each 3 10/29/2020 [...] less than 8.0% ([facility]) 35 Units at breakfast, 45 [...] as of this encounter (statuses as of 04/11/2023) Active Problems Problem Noted Date Thrombocytopenia 01/17/2023 [...] as of this encounter (statuses as of 04/11/2023) Resolved Problems Problem Noted Date Resolved Date [...] Achilles tendinitis, right leg 04/08/2019 0 09/13/2021 skilled nursing resident 04/08/2019 05/02/2019 Ambulatory dysfunction 04/04/2019 2 Fall 04/04/2019 05/05/2020 Sprain of right ankle 04/04/2019 05/05/2020 Recurrent major depressive disorder, in partial remission 04/04/2019 11/08/2022 Overview: More recent Dx noted on PL Last Assessment & Plan: Seems very depressed about current situation. 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 -continue lexapro [...] pain 01/24/2012 01/17/2017 Genetic Sleep Disorder Research Other*[id number] 05/13/2011 04/07/2016 Obstructive sleep apnea 01/18/2011 12/27/19 [...] as of this encounter (statuses as of 04/11/2023) Immunizations Name Administration Dates Next Due COVID-19 mRNA, LNP-s, No Pre serve, 2-Dose Series (Moderna) 01/05/2022,07/26/2021,12/21/2020,11/09 HEP A - Hepatitis A (Adult > 18 yrs) 09/24/2018, 03/26/2018 Hepatitis B, 20+ yrs 09/24/2018,04/23/2018,03/26 Pneumococcal Conjugate Vacc, 13 Valent (Prevnar) 05/02/2019 Pneumococcal Conjugate Vacci ne, 20-valent ([id number]) 10/21/2022 Pneumococcal Polysaccharide PPV23 (Pneumovax) 06/01/2010 Seasonal [...] Telephone Encounter - Jonas Adhikari RPh - 04/11/2023 12:52 PM EDT Patient scheduled with chemo 04/25. Jonas Atwood RPh, CACP, CDE Clinical Pharmacist [facility] 04/11/2023, 12:53 PM * Telephone Encounter - DEVIKA Decker - 04/11/2023 12:30 PM EDT Caller's name: Syed Preferred call back number(OFFICE NUMBER FOR ): [phone] Reason for call: Patient's calling to see if they can have an appt same day as their infusion for the 04/25 I didn't have anything to offer them. Please return his call and advise. Thank you, Lelia Suarez Grouter Helper [facility] 04/11/2023,12:30 PM documented in this encounter Plan of Treatment Upcoming Encounters Date Type Specialty Care Team Description 04/13/2023 Home Visit [facility] July Poe RN [address] [place] [address] 04/25/2023 Hem/Onc Treatment Hematology Oncology [place], Chair 8 Hem Onc [address] [place] [address] 04/25/2023 Office Visit Pharmacy Pharmacist1, [facility] [address] [facility] [address] [facility] [address] 05/19/2023 Telemedicine [facility] Joselin Dawson CRNP [address] [place] [address] Monika Zamora, Community [facility] Television Specialist [address] [place] [address] [place] [address] 05/22/2023 Office Visit Gastroenterology Lyssa Stout CRNP [address] [place] [address] 06/27/2023 Office Visit Hematology Oncology Tono Sanchez MD [address] [place] [address] 07/13/2023 Office Visit Sleep Disorders Lanette Fields CRNP [address] [place] [address] 07/31/2023 Office Visit Family Medicine Vanita Dunn MD [address] [place] [address] 07/31/2023 Laboratory Laboratory [facility] [address] [place] [address] 10/04/2023 Office Visit Gynecology Obstetrics Renetta Martinez MD [address] [place] [address] Scheduled Procedures Name Priority Associated Diagnoses Date/Ti [...] this encounter Medical Devices Implanted Type Area Telephone Quotation Clerk Device Identifier Shelf Expiration Date Model / Serial / Lot Microtech Sure Clip Implanted:Qty: 2 on 06/03/2020 by Janis Hatch DO at OR [facility] Clip N/A: Colon 04/21/2022 [facility]-F-26-2 35-C-R / / [id number] documented as of this encounter Advance Directives Documents on File Type Date Recorded Patient Machining Supervisor Expl anation Advance Directives and Living Will 04/29/2021 ADVANCE DIRECTIVE / LIVING WILL LIVING WILL AND HEALTH CARE POA Power of Apparel Sales Associate 04/29/2021 POWER OF A TTORNEY [...] the patient have Health Care Power of Apparel Sales Associate? No Code Status History Code Status Date Activated Date Inactivated Comments Full Code 12/27/2021 2:50 PM 12/27/2021 8:02 PM This order reflects the patients wishes and were consensually agreed upon. Question Answer Comments Discussion of Advance Directives occurred with: Not Discussed Does the patient have a Living Will? No Does the patient have Health Care Power of Apparel Sales Associate? No Full Code 03/31/2021 8:57 [...] Agents on File Name Relationship Healthcare Agent [facility] p Communication Syed Bustos Spouse Emergency Contact Care Teams Splicing Supervisor Relationship Specialty Start Date End Date Vanita Dunn MD [address] [place], [place] [id number] PCP - General Family Medicine 03/16/21 documented as of this encounter
--- OUTSIDE RECORDS SUMMARY | 2023-05-10 16:38 | External Medical Summary | Summary of Care ---
Author Name Unknown Organization [facility] Address [address] [facility] [place] [address] Phone [phone] Care Team Providers Care Speech And Hearing Director Name Role Phone Vanita Dunn MD Primary Care Provid er Reason for Visit * Reason Onset Date Comments Appointment 04/10/2023 Encounter Details Date Type Department Care Team Description 04/10/2023 Telephone Hematology/Oncology [facility] Gasper Bojorquez 200 [facility] [place] [address] Tono Sanchez MD [address] [place] [address] Appointment Allergies Active Allergy Reactions Severity Noted Date Comments Adhesive Tape Itching 04/29/2020 Penicillins Rash 02/12/2008 Penicillin G 07/20/2018 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 documented as of this encounter (statuses as of 04/10/2023) Medications Medication Sig Dispensed Refills Start Date End Date Status nystatin (NYSTOP) 683308 UNIT/GM powder Apply topically to affected area 3 times a day. 60 g 1 10/16/2019 Active Dexcom G6 Otr Owner Operator Device Use as directed. To test blood sugars 4 times a day Dx E11.9 1 Each 0 09/14/2020 Active Dexcom G6 Transmitter Use as directed. To test blood sugars 4 times a day. Change every 90 days. Dx E11.9 1 Each 3 09/14/2020 Active OneTouch Verio In Vitro Strip (Glucose Blood) TESTING once daily 100 Strip 3 10/29/2020 Active OneTouch Delica Plus Degvzh99N TESTING once daily 100 Each 10/29/2020 Active [...] A1c goal of less than 7.0% ([facility] USE TO INJECT INSULIN FOUR [...] A1c goal of less than 7.0% ([facility]) inject 4.5mg ( 1 pen) [...] as of this encounter (statuses as of 04/10/2023) Active Problems Problem Noted Date Thrombocytopenia 01/17/2023 [...] as of this encounter (statuses as of 04/10/2023) Resolved Problems Problem Noted Date Resolved Date [...] mass index (BMI) of 45.0-49.9 in adult 03/01/17/2017 Overview: bmi= 48.04 12/09/15 Need for shingles [...] pain 01/24/2012 01/17/2017 Genetic Sleep Disorder Research Other*[id number] 05/13/2011 04/07/2016 Obstructive sleep apnea 01/18/2011 12/27/19 [...] as of this encounter (statuses as of 04/10/2023) Immunizations Name Administration Dates Next Due COVID-19 mRNA, LNP-s, No Pre serve, 2-Dose Series (Moderna) 01/05/2022,07/26/2021,12/21/2020,11/09 HEP A - Hepatitis A (Adult > 18 yrs) 09/24/2018, 03/26/2018 Hepatitis B, 20+ yrs 09/24/2018,04/23/2018,03/26 Pneumococcal Conjugate Vacc, 13 Valent (Prevnar) 05/02/2019 Pneumococcal Conjugate Vacci ne, 20-valent ([id number]) 10/21/2022 Pneumococcal Polysaccharide PPV23 (Pneumovax) 06/01/2010 Seasonal [...] Miscellaneous Notes * Telephone Encounter - THAD Lopes - 04/10/2023 2:18 PM EDT Patient called in, stated she needs to reschedule tomorrow's iron infusion because their car is in the shop and she doesn't know for how long. Patient stated she would like to reschedule it for at least 2 weeks out. Moved appointment to 04/25 @ 2:30 pm documented in this encounter Plan of Treatment Upcoming Encounters Date Type Specialty Care Team Description 04/11/2023 Hem/Onc Treatment Hematology Oncology [place], Chair 11 Hem Onc [address] [place] [address] 04/11/2023 Office Visit Pharmacy Pharmacist1, [facility] [address] [place] [address] 04/13/2023 Home Visit [facility] July Poe RN [address] [place] [address] 04/25/2023 Hem/Onc Treatment Hematology Oncology [place], Chair 8 Hem Onc [address] [place] [address] 05/19/2023 Telemedicine [facility] Joselin Dawson CRNP [address] [place] [address] Monika Zamora, Community Health Lab Engineer [address] [place] [address] [place] [address] 05/22/2023 Office Visit Gastroenterology Lyssa Stout CRNP [address] [place] [address] 06/27/2023 Office Visit Hematology Oncology Tono Sanchez MD [address] [facility] [address] 07/13/2023 Office Visit Sleep Disorders Lanette Fields CRNP [address] [place] [address] 07/31/2023 [facility] [address] [place] [address] 07/31/2023 Laboratory Laboratory [facility] [address] [place] [address] 10/04/2023 Office Visit Gynecology Obstetrics Renetta Martinez MD [address] [place] [address] Scheduled Procedures Name Priority Associated Diagnoses Date/Ti [...] this encounter Medical Devices Implanted Type Area Fleet Manager Device Identifier Shelf Expiration Date Model / Serial / Lot Microtech Sure Clip Implanted:Qty: 2 on 06/03/2020 by Janis Hatch, DO at OR [facility] Clip N/A: Colon 04/21/2022 [facility]-F-26-2 35-C-R / / [id number] documented as of this encounter Advance Directives Documents on File Type Date Recorded Patient Medical Biller Expl anation Advance Directives and Living Will 04/29/2021 ADVANCE DIRECTIVE / LIVING WILL LIVING WILL AND HEALTH CARE POA Power of Steamfitter Apprentice 04/29/2021 POWER OF A T[facility]NEY [facility] CARE [...] the patient have Health Care Power of Steamfitter Apprentice? No Code Status History Code Status Date Activated Date Inactivated Comments Full Code 12/27/2021 2:50 PM 12/27/2021 8:02 PM This order reflects the patients wishes and were consensually agreed upon. Question Answer Comments Discussion of Advance Directives occurred with: Not Discussed Does the patient have a Living Will? No Does the patient have Health Care Power of Steamfitter Apprentice? No Full Code 03/31/2021 8:57 PM 04/03/2021 [...] Syed Bustos Spouse Emergency Contact Care Teams Speech And Hearing Director Relationship Specialty Start Date End Date Vanita Dunn MD [address] [place] [phone] PCP - General Family Medicine 03/16/21 documented as of this encounter
--- OUTSIDE RECORDS SUMMARY | 2023-05-10 16:38 | External Medical Summary | Summary of Care ---
Author Name Unknown Organization [facility] Address [address] [facility] [place] [address] Phone [phone] Care Team Providers Care Warehouse Foreman Name Role Phone Vanita Dunn MD Primary Care Provid er Reason for Visit * Reason Comments [facility]: Maintenance Encounter Details Date Type Department Care Team Description 04/07/2023 Home Visit [facility], [facility] [address] [place] [address] July Poe, RN [address] [facility] [place] [address] Allergies Active Allergy Reactions Severity Noted Date Comments Adhesive Tape Itching 04/29/2020 Penicillins Rash 02/12/2008 Penicillin G 07/20/2018 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 documented as of this encounter (statuses as of 04/07/2023) Medications Medication Sig Dispensed Refills Start Date End Date Status nystatin (NYSTOP) 708746 UNIT/GM powder Apply topically to affected area 3 times a day. 60 g 1 10/16/2019 Active Dexcom G6 Algebra Teacher Device Use as directed. To test blood sugars 4 times a day Dx E11.9 1 Each 0 09/14/2020 Active Dexcom G6 Transmitter Use as directed. To test blood sugars 4 times a day. Change every 90 days. Dx E11.9 1 Each 3 09/14/2020 Active OneTouch Verio In Vitro Strip (Glucose Blood) TESTING once daily 100 Strip 3 10/29/2020 Active OneTouch Delica Plus [id number] TESTING once daily 100 Each 10/29/2020 Active [...] A1c goal of less than 8.0% ([facility]) Inject 46 Units under the skin daily. [...] A1c goal of less than 7.0% ([facility]) inject 4.5mg ( 1 pen) under skin [...] as of this encounter (statuses as of 04/07/2023) Active Problems Problem Noted Date Thrombocytopenia 01/17/2023 [...] Appears euvolemic today. Not on a beta-jose cralos or an Zay. Could be due to [...] as of this encounter (statuses as of 04/07/2023) Resolved Problems Problem Noted Date Resolved Date [...] Achilles tendinitis, right leg 04/08/2019 0 09/13/2021 jail resident 04/08/2019 05/02/2019 Ambulatory dysfunction 04/04/2019 2 [...] pain 01/24/2012 01/17/2017 Genetic Sleep Disorder Research Other*[id number] 05/13/2011 04/07/2016 Obstructive sleep apnea 01/18/2011 12/27/19 [...] as of this encounter (statuses as of 04/07/2023) Immunizations Name Administration Dates Next Due COVID-19 mRNA, LNP-s, No Pre serve, 2-Dose Series (Moderna) 01/05/2022,07/26/2021,12/21/2020,11/09 HEP A - Hepatitis A (Adult > 18 yrs) 09/24/2018, 03/26/2018 Hepatitis B, 20+ yrs 09/24/2018,04/23/2018,03/26 Pneumococcal Conjugate Vacc, 13 Valent (Prevnar) 05/02/2019 Pneumococcal Conjugate Vacci ne, 20-valent ([id number]) 10/21/2022 Pneumococcal Polysaccharide PPV23 (Pneumovax) 06/01/2010 Seasonal [...] Sign Reading Time Taken Comments Blood Pressure 116/64 04/07/2023 9:56 AM EDT Pulse 70 04/07/2023 9:56 AM EDT Temperature 36 C (96.8 F) 04/07/2023 9:56 AM EDT Respiratory Rate 18 04/07/2023 9:56 AM EDT Oxygen Saturation 96% 04/07/2023 9:56 AM EDT Inhaled Oxygen Concentration - - [...] Progress Notes * July Poe RN - 04/07/2023 8:01 AM EDT [facility] [employer] [facility] Visit Date: 04/07/2023 Time: 8:01 AM Name: Shaina Bustos : 1955 Current Concerns: Pt seen for return RNCM visit to f/u on insurance Pt's ghp insurance termed September 2022 At prior visit, had called p insurance and it was supposed to be reinstated as of 03/11/23 That had not happened and found out that pt's Medicare part B was stopped d/t non-payment Had called and he was calling to get that reinstated, saying that he was making payments tocatch up. GHP insurance is still not active and pt is active with [employer] Advised that we will have to disenroll pt if no longer has GHP insurance. Made home visit to help navigate through to get GHP/medicare insurance back Called medicare and pt does have part A but no part B. It termed in September and pt did not get it back d/t non-payment reports he went to social security office and got it straight and has been making payments. Medicare rep gave phone number for Social Security Called social security and was on hold for 25 minutes Spoke with direct marketing representative Marj, And told there should have been a form submitted stating why they could not make payments and then has to be approved by social security - if denied will have to wait until September to re-enroll Phone number for social security office is [phone] Asked Marj to mail form as pt does not have internet to do online - she reports she will mail butmay take up to 10 days, otherwise can go back to social security office to do Physical Exam: BP 116/64 | Pulse 70 | Temp 36 C (96.8 F) | Resp 18 | SpO2 96% Pain 0 Problems/Symptoms: Medication Reconciliation: (See medication list) Does patient take medications as ordered: Yes Patient Well Being: PHQ2/9: No questionnaires available. No change in living situation No falls [facility] Completed this Visit: No. Routine visit and No falls since last visit Advanced Care Planning: Living Will. Patient's Goals of Care: 1. Remain in home 2. Have a evp global multimedia sales cg 3. Get out more Reinforcement/Education: DIABETES: [...] hrs Home Interventions Provided: Home Intervention: Other; eval Reinforced current Plan of Care, including self-management and medication regimen Patient's 'Red Flags': 1. Increased cough with yellow/green sputum 2. Lethargy, sleeping more 3. No bm in 24 hrs Patient Needs to Remember: Call [facility] at with any new or worsening health concerns or problems, red flag symptoms. Referrals Needed: Other none Follow Up: Is there cellular connectivity/connectivity in the home? Yes Does the patient have internet in the home? No Patient encouraged to call the intake phone number for all urgent but not emergent issues. Is the patient new to [employer] [facility] within the last 30 days? No, Assess appropriateness for upcoming telehealth visits. Cancel telehealth visits & schedule home visit with care tennis desk team member(s)as indicated. Provider is in agreement with Plan of Care: Yes Scheduled to follow up with patient in one week. July Poe RN 04/07/2023 8:01 AM documented in this encounter Plan of Treatment Upcoming Encounters Date Type Specialty Care Team Description 04/11/2023 Hem/Onc Treatment Hematology Oncology [place], Chair [address] [place] [address] 04/11/2023 Office Visit Pharmacy Pharmacist1, [facility] [address] [place] [address] 04/13/2023 Home Visit [facility] July Poe, RN [address] [place] [address] 05/19/2023 Telemedicine [facility] Joselin Dawson CRNP [address] [place] [address] Monika Zamora, [address] [place] [address] 05/22/2023 Office Visit Gastroenterology Lyssa Stout CRNP [address] [place] [address] 06/27/2023 Office Visit Hematology Oncology Tono Sanchez MD [address] [place] [address] 07/13/2023 Office Visit Sleep Disorders Lanette Fields CRNP [address] [place] [address] 07/31/2023 Office Visit Family Medicine Vanita Dunn MD [address] [place] [address] 07/31/2023 Laboratory Laboratory [facility] [address] [place] [address] 10/04/2023 Office Visit Gynecology Obstetrics Renetta Martinez MD [address] [place] [address] Scheduled Procedures Name Priority Associated Diagnoses Date/Ti [...] this encounter Medical Devices Implanted Type Area Personnel Monitor Device Identifier Shelf Expiration Date Model / Serial / Lot Microtech Sure Clip Implanted:Qty: 2 on 06/03/2020 by Janis Hatch DO at OR [facility] Clip N/A: Colon 04/21/2022 [facility]-F-26-2 35-C-R / / [id number] documented as of this encounter Advance Directives Documents on File Type Date Recorded Patient Stamp Pad Maker Expl anation Advance Directives and Living Will 04/29/2021 ADVANCE DIRECTIVE / LIVING WILL LIVING WILL AND HEALTH CARE POA Power of Natural Sciences Department Chair 04/29/2021 POWER OF A [facility] [...] the patient have Health Care Power of Natural Sciences Department Chair? No Code Status History Code Status Date Activated Date Inactivated Comments Full Code 12/27/2021 2:50 PM 12/27/2021 8:02 PM This order reflects the patients wishes and were consensually agreed upon. Question Answer Comments Discussion of Advance Directives occurred with: Not Discussed Does the patient have a Living Will? No Does the patient have Health Care Power of Natural Sciences Department Chair? No Full Code 03/31/2021 8:57 PM 04/03/2021 [...] Relationship Healthcare Agent [facility] p Communication Syed Bustos Spouse Emergency Contact Care Teams Warehouse Foreman Relationship Specialty Start Date End Date Vanita Dunn MD [address] [place] [address] PCP - General Family Medicine 03/16/21 documented as of this encounter
--- OUTSIDE RECORDS SUMMARY | 2023-05-10 16:38 | External Medical Summary | Summary of Care ---
Author Name Unknown Organization [facility] Address [address] [place] [address] Phone [phone] Care Team Providers Care Support Team Member Name Role Phone Vanita Dunn MD Primary Care Provid er Reason for Visit * Reason Onset Date Comments Appointment 04/03/2023 Infusions Encounter Details Date Type Department Care Team Description 04/03/2023 Telephone Access Center, [place] [address] [facility] *DO NOT REMOVE THIS DEPARTMENT* [place] [address] Services, Scheduling [address] [place] [address] Appointment (Infusions) Allergies Active Allergy Reactions Severity Noted Date Comments Adhesive Tape Itching 04/29/2020 Penicillins Rash 02/12/2008 Penicillin G 07/20/2018 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 documented as of this encounter (statuses as of 04/03/2023) Medications Medication Sig Dispensed Refills Start Date End Date Status nystatin (NYSTOP) 738624 UNIT/GM powder Apply topically to affected area 3 times a day. 60 g 1 10/16/2019 Active Dexcom G6 Hand Embroiderer Device Use as directed. To test blood sugars 4 times a day Dx E11.9 1 Each 0 09/14/2020 Active Dexcom G6 Transmitter Use as directed. To test blood sugars 4 times a day. Change every 90 days. Dx E11.9 1 Each 3 09/14/2020 Active OneTouch Verio In Vitro Strip (Glucose Blood) TESTING once daily 100 Strip 3 10/29/2020 Active OneTouch Delica Plus [id number] TESTING once daily 100 Each 3 10/29/2020 [...] A1c goal of less than 8.0% ([facility]) Inject 46 Units under the skin daily. 45 mL 3 03/21/2023 Active NovoLOG FlexPen 100 UNIT/ML Subcutaneous Solution Pen-injectorIndicati ons:Type 2 diabetes mellitus with hemoglobin A1c goal of less than 8.0% ([facility]) 35 Units at breakfast, 45 Units before lunch, 82 Units before supper 150 mL 3 03/21/2023 Active Trulicity 4.5 MG/0.5ML Subcutaneous Solution Pen-injector (Dulaglutide)Indicat ions:Type 2 diabetes mellitus with hemoglobin A1c goal of less than 7.0% ([facility]) inject 4.5mg ( 1 [...] as of this encounter (statuses as of 04/03/2023) Active Problems Problem Noted Date Thrombocytopenia 01/17/2023 [...] as of this encounter (statuses as of 04/03/2023) Resolved Problems Problem Noted Date Resolved Date [...] Achilles tendinitis, right leg 04/08/2019 0 09/13/2021 correction resident 04/08/2019 05/02/2019 Ambulatory dysfunction 04/04/2019 2 Fall 04/04/2019 05/05/2020 Sprain of right ankle 04/04/2019 05/05/2020 Recurrent major depressive disorder, in partial remission 04/04/2019 11/08/2022 Overview: More recent Dx noted on PL Last Assessment & Plan: Seems very depressed about current situation. 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 if a truck terminal manager plan is made -continue lexapro Generalized [...] pain 08/19/2016 09/13/2021 Depression with anxiety 08/19/2016 06/05/20 18 Hepatic cirrhosis 08/19/2016 03/28/2017 Polyuria 08/09/2016 [...] pain 01/24/2012 01/17/2017 Genetic Sleep Disorder Research Other*[id number] 05/13/2011 04/07/2016 Obstructive sleep apnea 01/18/2011 12/27/19 [...] as of this encounter (statuses as of 04/03/2023) Immunizations Name Administration Dates Next Due COVID-19 mRNA, LNP-s, No Pre serve, 2-Dose Series (Moderna) 01/05/2022,07/26/2021,12/21/2020,11/09 HEP A - Hepatitis A (Adult > 18 yrs) 09/24/2018, 03/26/2018 Hepatitis B, 20+ yrs 09/24/2018,04/23/2018,03/26 Pneumococcal Conjugate Vacc, 13 Valent (Prevnar) 05/02/2019 Pneumococcal Conjugate Vacci ne, 20-valent ([id number]) 10/21/2022 Pneumococcal Polysaccharide PPV23 (Pneumovax) 06/01/2010 Seasonal [...] * Telephone Encounter - THAD Lopes - 04/03/2023 2:18 PM EDT Spoke to Brice, moved apportionment to earlier in the day. * Telephone Encounter - THAD Jennings - 04/03/2023 2:06 PM EDT Pts Brice called in stating that their transmission in their car went out so they are currently taking the bus back and fourth for their appts. The bus does not go after a certain and he will need to reschedule Kathis treatment that is scheduled fir 04/11/23. He is asking for a return call to [phone] documented in this encounter Plan of Treatment Upcoming Encounters Date Type Specialty Care Team Description 04/11/2023 Hem/Onc Treatment Hematology Oncology [place], Chair 11 Hem Onc Scenery [address] [facility] [place] [address] 04/11/2023 Office Visit Pharmacy Pharmacist1, [facility] Sp [address] [facility] [place] [address] 04/13/2023 Home Visit [facility] July Poe RN [address] [facility] [place] [address] 05/19/2023 Telemedicine [facility] Joselin Dawson CRNP [address] [place] [address] Monika Zamora, Community Health Professor Of Business Administration [address] [place] [address] [place] [address] 05/22/2023 Office Visit Gastroenterology Lyssa Stout CRNP [address] [place] [address] 06/27/2023 Office Visit Hematology Oncology Tono Sanchez MD [address] [place] [address] 07/13/2023 Office Visit Sleep Disorders Lanette Fields CRNP [address] [place] [address] 07/31/2023 Office Visit Family Medicine Mona, Vanita Barbour MD [address] [place] [address] 07/31/2023 Laboratory Laboratory [facility] [address] [place] [address] 10/04/2023 Office Visit Gynecology Obstetrics Renetta Martinez MD [address] [place] [address] Scheduled Procedures Name Priority Associated Diagnoses Date/Ti me ESOPHAGOGASTRODUODENOSCOPY ( EGD), FLEXIBLE, TRANSORAL, DIAGNOSTIC Recall Esophagitis COLONOSCOPY FLEXIBLE PROXIMAL DIAGNOSTIC Recall History of colonic polyps Health Maintenance Due Date Last Done Comments DXA Scan 1955 DIABETES-EYE EXAM 06/12/2019 06/12/2018, , 06/12/2018, Additional history exists Zoster Vaccines (3 of 3) 06/23/2020 04/28/2020, 03 Depression Screening, Annual for Pts 12 and [...] this encounter Medical Devices Implanted Type Area Director Quality Assurance Device Identifier Shelf Expiration Date Model / Serial / Lot Microtech Sure Clip Implanted:Qty: 2 on 06/03/2020 by Janis Hatch DO at OR [facility] Clip N/A: Colon 04/21/2022 [facility]-F-26-2 35-C-R / / [id number] documented as of this encounter Advance Directives Documents on File Type Date Recorded Patient Head Of Talent Management Expl anation Advance Directives and Living Will 04/29/2021 ADVANCE DIRECTIVE / LIVING WILL LIVING WILL AND HEALTH CARE POA Power of Telecommunicator Supervisor 04/29/2021 POWER [facility] A [facility] [...] the patient have Health Care Power of Telecommunicator Supervisor? No Code Status History Code Status Date Activated Date Inactivated Comments Full Code 12/27/2021 2:50 PM 12/27/2021 8:02 PM This order reflects the patients wishes and were consensually agreed upon. Question Answer Comments Discussion of Advance Directives occurred with: Not Discussed Does the patient have a Living Will? No Does the patient have Health Care Power of Telecommunicator Supervisor? No Full Code 03/31/2021 8:57 PM 04/03/2021 [...] Agents on File Name Relationship [facility] Syed Bustos Spouse Emergency Contact Care Teams Support Team Member Relationship Specialty Start Date End Date Vanita Dunn MD [address] [place] [address] PCP - General Family Medicine 03/16/21 documented as of this encounter
--- OUTSIDE RECORDS SUMMARY | 2023-05-10 16:39 | External Medical Summary | Summary of Care ---
Author Name Unknown Organization [facility] Address [address] [facility] [place] [address] Phone [phone] Care Team Providers Care Wheel Loader Operator Name Role Phone Vanita Dunn MD Primary Care Provid er Reason for Visit * Reason Onset Date Comments [facility]: Maintenance 04/01/2023 Encounter Details Date Type Department Care Team Description 04/01/2023 Telephone Family Practice [address] [facility] [address] [place] [id number] Shane Sneed, [address] [place], [place] [id number] [facility]: Maintenance Allergies Active Allergy Reactions Severity Noted Date Comments Adhesive Tape Itching 04/29/2020 Penicillins Rash 02/12/2008 Penicillin G 07/20/2018 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 documented as of this encounter (statuses as of 04/01/2023) Medications Medication Sig Dispensed Refills Start Date End Date Status nystatin (NYSTOP) 940527 UNIT/GM powder Apply topically to affected area 3 times a day. 60 g 1 10/16/2019 Active Dexcom G6 Rotor Blade Installer Device Use as directed. To test blood sugars 4 times a day Dx E11.9 1 Each 0 09/14/2020 Active Dexcom G6 Transmitter Use as directed. To test blood sugars 4 times a day. Change every 90 days. Dx E11.9 1 Each 3 09/14/2020 Active OneTouch Verio In Vitro Strip (Glucose Blood) TESTING once daily 100 Strip 3 10/29/2020 Active OneTouch Delica Plus Kadmla29I TESTING once daily 100 Each 3 10/29/2020 [...] hemoglobin A1c goal of less than 7.0% ([facility]) USE TO INJECT INSULIN [...] MOUTH EVERY DAY AT BEDTIME 90 Tablet 02/19/2023 Active Benzonatate 200 MG Oral CapsuleIndications:B [...] hemoglobin A1c goal of less than 7.0% ([facility]) inject 4.5mg ( 1 [...] as of this encounter (statuses as of 04/01/2023) Active Problems Problem Noted Date Thrombocytopenia 01/17/2023 [...] as of this encounter (statuses as of 04/01/2023) Resolved Problems Problem Noted Date Resolved Date [...] current situation. 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 if a fdc plan is made -continue lexapro Generalized weakness [...] pain 01/24/2012 01/17/2017 Genetic Sleep Disorder Research Other*[id number] 05/13/2011 04/07/2016 Obstructive sleep apnea 01/18/2011 12/27/19 [...] as of this encounter (statuses as of 04/01/2023) Immunizations Name Administration Dates Next Due COVID-19 mRNA, LNP-s, No Pre serve, 2-Dose Series (Moderna) 01/05/2022,07/26/2021,12/21/2020,11/09 HEP A - Hepatitis A (Adult > 18 yrs) 09/24/2018, 03/26/2018 Hepatitis B, 20+ yrs 09/24/2018,04/23/2018,03/26 Pneumococcal Conjugate Vacc, 13 Valent (Prevnar) 05/02/2019 Pneumococcal Conjugate Vacci ne, 20-valent ([id number]) 10/21/2022 Pneumococcal Polysaccharide PPV23 (Pneumovax) 06/01/2010 Seasonal [...] Encounter - Lakeshia Flores RN - 04/01/2023 2:53 PM EDT Abdominal x-ray called into and faxed to [facility], spoke with Lien, Claim number #[id number] Order faxed to [phone] per Lien Call placde to patient/spouse to make them aware that [email or web address] would be contacting them to arrange for the in home abdominal x-ray, several calls attempted, but call went straight to voicemail and unable to leave message due to mail box being full. Call to patient, able to get through this time, spoke with and is aware of X-ray to be doneat home. ARASH Rodriguez White Lead Grinder [facility] * Telephone Encounter - Shane Sneed DO - 04/01/2023 2:15 PM EDT Shaina Bustos is a 67 year old female whose spouse is calling [employer] [facility] Intake to report that patient [...] denies vomiting, -SOB, -CP, -dizziness, -light headedness, Abdominal x-ray ordered Due to distention and pain documented in this encounter Plan of Treatment Upcoming Encounters Date Type Specialty Care Team Description 04/01/2023 Home Visit [facility], Nurse [place] [address] [address] [address] 04/02/2023 Scheduled Telephone [facility], Nurse [place] [address] [place] [address] 04/11/2023 Hem/Onc Treatment Hematology Oncology [place], Chair 2 Hem Onc Scenery [address] [facility] [place] [address] 04/11/2023 Office Visit Pharmacy Pharmacist1, [facility] Sp [address] [place] [address] 04/13/2023 Home Visit [facility] July Poe RN [address] [address] 05/19/2023 Telemedicine [facility] Joselin Dawson CRNP [address] [place] [address] Monika Zamora [facility] [address] [place] [address] 05/22/2023 Office Visit Gastroenterology Lyssa Stout CRNP [address] [place] [address] 06/27/2023 Office Visit Hematology Oncology Tono Sanchez MD [address] [place] [address] 07/13/2023 Office Visit Sleep Disorders Lanette Fields CRNP [address] [place] [address] 07/31/2023 Office Visit Family Medicine Vanita Dunn MD [address] [place] [address] 07/31/2023 Laboratory Laboratory [facility] [address] [place] [address] 10/04/2023 Office Visit Gynecology Obstetrics Renetta Martinez MD [address] [place] [address] Scheduled Orders Name Type Priority Associated Diagnoses Orde r Schedule XR ABDOMEN 1 VIEW Medical Imaging Routine Other constipation Abdominal pain, generalized Ordered: 04/01/2023 Scheduled Procedures Name Priority Associated Diagnoses Date/Ti [...] this encounter Medical Devices Implanted Type Area Addictions Recovery Specialist Device Identifier Shelf Expiration Date Model / Serial / Lot Microtech Sure Clip Implanted:Qty: 2 on 06/03/2020 by Janis Hatch DO at OR [facility] Clip N/A: Colon 04/21/2022 [facility]-F-26-2 35-C-R / / [id number] documented as of this encounter Visit Diagnoses Diagnosis Other constipation- Primary Abdominal pain, generalized documented in this encounter Advance Directives Documents on File Type Date Recorded Patient Sports Management Internship Expl anation Advance Directives and Living Will 04/29/2021 ADVANCE DIRECTIVE / LIVING WILL LIVING WILL AND HEALTH CARE POA Power of Metal Dealer 04/29/2021 POWER OF A [facility] [...] the patient have Health Care Power of Metal Dealer? No Code Status History Code Status Date Activated Date Inactivated Comments Full Code 12/27/2021 2:50 PM 12/27/2021 8:02 PM This order reflects the patients wishes and were consensually agreed upon. Question Answer Comments Discussion of Advance Directives occurred with: Not Discussed Does the patient have a Living Will? No Does the patient have Health Care Power of Metal Dealer? No Full Code 03/31/2021 8:57 PM 04/03/2021 [...] Agents on File Name Relationship Healthcare [facility] Communication Syed Bustos Spouse Emergency Contact Care Teams Wheel Loader Operator Relationship Specialty Start Date End Date Vanita Dunn MD [address] [place] [address] PCP - General Family Medicine 03/16/21 documented as of this encounter
--- OUTSIDE RECORDS SUMMARY | 2023-05-10 16:39 | External Medical Summary | Summary of Care ---
Author Name Unknown Organization [facility] Address [address] [facility] [place] [address] Phone [phone] Care Team Providers Care Intermediate Frame Tender Name Role Phone Vanita Dunn MD Primary Care Provid er Reason for Visit * Reason Comments [facility]: Acute Encounter Details Date Type Department Care Team Description 04/01/2023 [facility] Visit [facility], [facility] [place] [address] [facility], Nurse [facility] 132 [place] [address] Allergies Active Allergy Reactions Severity Noted Date Comments Adhesive Tape Itching 04/29/2020 Penicillins Rash 02/12/2008 Penicillin G 07/20/2018 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 documented as of this encounter (statuses as of 04/01/2023) Medications Medication Sig Dispensed Refills Start Date End Date Status nystatin (NYSTOP) 465900 UNIT/GM powder Apply topically to affected area 3 times a day. 60 g 1 10/16/2019 Active Dexcom G6 Tower Loader Operator Device Use as directed. To test blood sugars 4 times a day Dx E11.9 1 Each 0 09/14/2020 Active Dexcom G6 Transmitter Use as directed. To test blood sugars 4 times a day. Change every 90 days. Dx E11.9 1 Each 3 09/14/2020 Active OneTouch Verio In Vitro Strip (Glucose Blood) TESTING once daily 100 Strip 3 10/29/2020 Active OneTouch Delica Plus [id number] TESTING once daily 100 Each 10/29/2020 Active [...] hemoglobin A1c goal of less than 7.0% ([facility]) USE TO INJECT INSULIN FOUR [...] hemoglobin A1c goal of less than 7.0% ([facility]) inject 4.5mg ( 1 pen) [...] pain 01/24/2012 01/17/2017 Genetic Sleep Disorder Research Other*[id number] 05/13/2011 04/07/2016 Obstructive sleep apnea 01/18/2011 12/27/19 [...] sleep apnea 06/30/2009 Obesity, BMI not known 06/04/200912/08/ 0 Overview: Per Obesity Taxonomy Other lymphedema [...] (Prevnar) 05/02/2019 Pneumococcal Conjugate Vacci ne, 20-valent ([id number]) 10/21/2022 Pneumococcal Polysaccharide PPV23 (Pneumovax) 06/01/2010 Seasonal [...] Reading Time Taken Comments Blood Pressure 108/64 04/01/2023 2:16 PM EDT Pulse 80 04/01/2023 2:16 PM EDT Temperature 36.9 C (98.5 F) 04/01/2023 2:16 PM ED T Respiratory Rate 18 04/01/2023 2:16 PM EDT Oxygen Saturation 97% 04/01/2023 2:16 PM EDT Inhaled Oxygen Concentration - - [...] as of this encounter Progress Notes * Rosy White RN - 04/01/2023 2:14 PM EDT [facility] Supervisor Mold Cleaning And StorageEmergency Medical Technician Visit Date: 04/01/2023 Time: 12:30 PM Name: Shaina Bustos : 1955 Current Concerns: Patient seen for acute visit- patient reporting lower abdominal pain- constipation yesterday- took lactulose and dulcolax last evening- resulting in watery stools- has had 2 since this morning. Took lactulose this am. Upon arrival, patient in bed. Has not been able to get out of bed d/t loose stools. Reports abdominal discomfort has subsided. Pain 0/10. Abdomen distended firm Hypoactive bowel sounds all quads. Denies nausea/vomiting/abdominal cramping. Taking fluids well Appetite good VS wnl Lungs clear bilaterally Sob with exertion Voiding without difficulty TT to Dr. Tiffany samano ordered Problems/Symptoms: Review of Systems Constitutional: Negative. HENT: Negative. Respiratory: Positive for shortness of breath. Gastrointestinal: Positive for abdominal distention and diarrhea. Endocrine: Negative. Genitourinary: Negative. Musculoskeletal: Positive for gait problem. Skin: Negative. Allergic/Immunologic: Negative. Hematological: Negative. Physical Exam: BP 108/64 (BP Site: Right Arm, BP Position: Sitting, BP Cuff Size: Regular) | Pulse 80 | Temp 36.9 C (98.5 F) (Tympanic) | Resp 18 | SpO2 97% Pain 0 Physical Exam Constitutional: Appearance: She is obese. Abdominal: General: There is distension. Comments: Distended, firm Musculoskeletal: General: Normal range of motion. Skin: General: Skin is warm and dry. Neurological: Mental Status: She is alert and oriented to person, place, and time. Psychiatric: Mood and Affect: Mood normal. Behavior: Behavior normal. MAHC-10 Completed this Visit: No. No falls since last visit Treatment/Plan: Mobile abdominal xray ordered. BRAT diet Encouraged 1/2 dose lactulose today- resume full dose tomorrow. Continue medications as prescribed Keep all upcoming MD appointments Svetlana lift with transfers. Follow up phone call tomorrow Home Interventions Provided: Lab/Imaging Ordered Abdominal xray Consulted PCP/Specialist Reinforced current Plan of Care, including self-management and medication regimen Patient Needs to Remember: Call [facility] with any medical concerns/red flags Referrals Needed: n/a Follow Up: Is there cellular connectivity/connectivity in the home? Yes Does the patient have internet in the home? No Patient encouraged to call the intake phone number for all urgent but not emergent issues. Scheduled to follow up with patient in 1 day. Rosy Self RN 04/01/2023 12:30 PM documented in this encounter Plan of Treatment Upcoming Encounters Date Type Specialty Care Team Description 04/02/2023 Scheduled Telephone [facility], Nurse [address] [place] [address] 04/11/2023 Hem/Onc Treatment Hematology Oncology [place], Chair 2 Hem Onc Scenery [address] [place] [address] 04/11/2023 Office Visit Pharmacy Pharmacist1, [facility] 200 [facility], [place] [address] 04/13/2023 Home Visit [facility] July Poe, RN [address] [place] [address] 05/19/2023 Telemedicine [facility] Joselin Dawson CRNP [address] [place] [address] Monika Zamora, [address] [place] [address] 05/22/2023 Office Visit Gastroenterology Lyssa Stout CRNP [address] [place] [address] 06/27/2023 Office Visit Hematology Oncology Tono Sanchez MD 200 [facility], [place] [address] 07/13/2023 Office Visit Sleep Disorders Lanette Fields CRNP [address] [place] [address] 07/31/2023 Office Visit Family Medicine MonaVanita MD [address] [place] [address] 07/31/2023 Laboratory Laboratory [place], Laboratory [address] [place] [address] 10/04/2023 Office Visit Gynecology Obstetrics Renetta Martinez MD [address] [place] [address] Scheduled Procedures Name Priority Associated Diagnoses Date/Ti [...] this encounter Medical Devices Implanted Type Area Mix Technician Device Identifier Shelf Expiration Date Model / Serial / Lot Microtech Sure Clip Implanted:Qty: 2 on 06/03/2020 by Janis Hatch DO at OR [facility] Clip N/A: Colon 04/21/2022 [facility]-F-26-2 35-C-R / / [id number] documented as of this encounter Advance Directives Documents on File Type Date Recorded Patient Sales Product Specialist Expl anation Advance Directives and Living Will 04/29/2021 ADVANCE DIRECTIVE / LIVING WILL LIVING WILL AND HEALTH CARE POA Power of Telecom Network Manager 04/29/2021 POWER OF A [facility] [...] the patient have Health Care Power of Telecom Network Manager? No Code Status History Code Status Date Activated Date Inactivated Comments Full Code 12/27/2021 2:50 PM 12/27/2021 8:02 PM This order reflects the patients wishes and were consensually agreed upon. Question Answer Comments Discussion of Advance Directives occurred with: Not Discussed Does the patient have a Living Will? No Does the patient have Health Care Power of Telecom Network Manager? No Full Code 03/31/2021 8:57 PM [...] Syed Bustos Spouse Emergency Contact Care Teams Intermediate Frame Tender Relationship Specialty Start Date End Date Vanita Dunn MD [address] [place] [address] PCP - General Family Medicine 03/16/21 documented as of this encounter
--- OUTSIDE RECORDS SUMMARY | 2023-05-10 16:39 | External Medical Summary | Summary of Care ---
Author Name Unknown Organization [facility] Address [address] [facility] [place] [address] Phone [phone] Care Team Providers Care Pipe Cleaning Machine Operator Name Role Phone Vanita Dunn MD Primary Care Provid er Reason for Visit * Reason Onset Date Comments [facility]: Maintenance 04/01/2023 Encounter Details Date Type Department Care Team Description 04/01/2023 Telephone Family Practice [address] [facility] [address] [place] [id number] Shane Sneed, [address] [place], [place] [id number] [facility]: Maintenance Allergies Active Allergy Reactions Severity Noted Date Comments Adhesive Tape Itching 04/29/2020 Penicillins Rash 02/12/2008 Penicillin G 07/20/2018 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 documented as of this encounter (statuses as of 04/01/2023) Medications Medication Sig Dispensed Refills Start Date End Date Status nystatin (NYSTOP) 872013 UNIT/GM powder Apply topically to affected area 3 times a day. 60 g 1 10/16/2019 Active Dexcom G6 Pmo Analyst Device Use as directed. To test blood sugars 4 times a day Dx E11.9 1 Each 0 09/14/2020 Active Dexcom G6 Transmitter Use as directed. To test blood sugars 4 times a day. Change every 90 days. Dx E11.9 1 Each 3 09/14/2020 Active OneTouch Verio In Vitro Strip (Glucose Blood) TESTING once daily 100 Strip 3 10/29/2020 Active OneTouch Delica Plus [id number] TESTING once daily 100 Each 3 10/29/2020 [...] goal of less than 7.0% ([facility]) USE TO INJECT INSULIN FOUR [...] goal of less than 7.0% ([facility]) inject 4.5mg ( 1 pen) [...] current situation. 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 if a alf plan is made -continue lexapro Generalized weakness [...] pain 01/24/2012 01/17/2017 Genetic Sleep Disorder Research Other*[id number] 05/13/2011 04/07/2016 Obstructive sleep apnea 01/18/2011 12/27/19 [...] (Prevnar) 05/02/2019 Pneumococcal Conjugate Vacci ne, 20-valent ([id number]) 10/21/2022 Pneumococcal Polysaccharide PPV23 (Pneumovax) 06/01/2010 Seasonal [...] Abdominal x-ray called into and faxed to [email or web address], spoke with Lien, Claim number #[id number] Order faxed to [phone] per Lien Call placde to patient/spouse to make them aware that [employer] [facility] would be contacting them to arrange for the in home abdominal x-ray ARASH Rodriguez Marketing Program Manager [facility] * Telephone Encounter - Shane Sneed DO - 04/01/2023 2:15 PM EDT Shaina Bustos is a 67 year old female whose spouse is calling [facility] to report that patient [...] Description 04/01/2023 Home Visit [facility], Nurse [facility] 132 [place] [address] 04/02/2023 Scheduled Telephone [facility] [place], Nurse [address] [place] [address] [place] [address] 04/11/2023 Hem/Onc Treatment Hematology Oncology [place], Chair 2 Hem Onc [facility] 200 [facility] [place] [address] 04/11/2023 Office Visit Pharmacy Pharmacist1, [facility] 200 [facility] [place] [address] 04/13/2023 Home Visit [facility] July Poe RN 132 [place] [address] 05/19/2023 [facility]medicine [facility] Joselin Dawson CRNP 132 [place] [address] Monika Zamora [address] [place] [address] 05/22/2023 Office Visit Gastroenterology Lyssa Stout CRNP [address] [place] [address] 06/27/2023 Office Visit Hematology Oncology Tono Sanchez MD 200 [facility] [place] [address] 07/13/2023 Office Visit Sleep Disorders Lanette Fields CRNP [address] [place] [address] 07/31/2023 Office Visit Family Medicine Vanita Dunn MD [address] [place] [address] 07/31/2023 Laboratory Laboratory [facility] [address] [place] [address] 10/04/2023 Office Visit Gynecology Obstetrics Renetta Martinez MD [address] [place] [address] Scheduled Orders Name Type Priority Associated Diagnoses [...] 06/01/2020, Additional history exists HbA1c 06/08/2023 12/06/2022, 04/2022, 01/24/2022, Additional history exists TSH 07/06/2023 [...] this encounter Medical Devices Implanted Type Area Office Aide Device Identifier Shelf Expiration Date Model / Serial / Lot Microtech Sure Clip Implanted:Qty: 2 on 06/03/2020 by Janis Hatch DO at OR [facility] Clip N/A: Colon 04/21/2022 [facility]-F-26-2 35-C-R / / [id number] documented as of this encounter Visit Diagnoses Diagnosis Other constipation- Primary Abdominal pain, generalized documented in this encounter Advance Directives Documents on File Type Date Recorded Patient Assistant Media Planner Expl anation Advance Directives and Living Will 04/29/2021 ADVANCE DIRECTIVE / LIVING WILL LIVING WILL AND HEALTH CARE POA Power of Ammunition Assembly I Laborer 04/29/2021 POWER OF A [facility] [...] the patient have Health Care Power of Ammunition Assembly I Laborer? No Code Status History Code Status Date Activated Date Inactivated Comments Full Code 12/27/2021 2:50 PM 12/27/2021 8:02 PM This order reflects the patients wishes and were consensually agreed upon. Question Answer Comments Discussion of Advance Directives occurred with: Not Discussed Does the patient have a Living Will? No Does the patient have Health Care Power of Ammunition Assembly I Laborer? No Full Code 03/31/2021 8:57 PM 04/03/2021 [...] File Name Relationship [facility] Communication Syed Bustos Spouse Emergency Contact Care Teams Pipe Cleaning Machine Operator Relationship Specialty Start Date End Date Vanita Dunn MD [address] [place] [address] PCP - General Family Medicine 03/16/21 documented as of this encounter
--- OUTSIDE RECORDS SUMMARY | 2023-05-10 16:39 | External Medical Summary | Summary of Care ---
Author Name Unknown Organization [facility] Address [address] [facility] [place] [address] Phone [phone] Care Team Providers Care Video Poker Floorman Name Role Phone Vanita Dunn MD Primary Care Provid er Reason for Visit * Reason Onset Date Comments [facility]: Acute 03/31/2023 Encounter Details Date Type Department Care Team Description 03/31/2023 Telephone [facility], [facility] 132 [facility] [address] [facility], Nurse [facility] 132 [place] [address] [facility]: Acute Allergies Active Allergy Reactions Severity Noted Date Comments Adhesive Tape Itching 04/29/2020 Penicillins Rash 02/12/2008 Penicillin G 07/20/2018 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 documented as of this encounter (statuses as of 03/31/2023) Medications Medication Sig Dispensed Refills Start Date End Date Status nystatin (NYSTOP) 893703 UNIT/GM powder Apply topically to affected area 3 times a day. 60 g 1 10/16/2019 Active Dexcom G6 Agricultural Crop Farm Manager Device Use as directed. To test blood sugars 4 times a day Dx E11.9 1 Each 0 09/14/2020 Active Dexcom G6 Transmitter Use as directed. To test blood sugars 4 times a day. Change every 90 days. Dx E11.9 1 Each 3 09/14/2020 Active OneTouch Verio In Vitro Strip (Glucose Blood) TESTING once daily 100 Strip 3 10/29/2020 Active OneTouch Delica Plus [id number] TESTING once daily 100 Each 10/29/2020 Active [...] hemoglobin A1c goal of less than 7.0% ([facility]) USE TO INJECT INSULIN FOUR TIMES DAILY. [...] hemoglobin A1c goal of less than 7.0% ([facility]) inject 4.5mg ( 1 pen) under skin [...] as of this encounter (statuses as of 03/31/2023) Active Problems Problem Noted Date Thrombocytopenia 01/17/2023 [...] as of this encounter (statuses as of 03/31/2023) Resolved Problems Problem Noted Date Resolved Date [...] current situation. 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 if a custodial plan is made -continue lexapro Generalized weakness [...] pain 01/24/2012 01/17/2017 Genetic Sleep Disorder Research Other*[id number] 05/13/2011 04/07/2016 Obstructive sleep apnea 01/18/2011 12/27/19 [...] as of this encounter (statuses as of 03/31/2023) Immunizations Name Administration Dates Next Due COVID-19 mRNA, LNP-s, No Pre serve, 2-Dose Series (Moderna) 01/05/2022,07/26/2021,12/21/2020,11/09 HEP A - Hepatitis A (Adult > 18 yrs) 09/24/2018, 03/26/2018 Hepatitis B, 20+ yrs 09/24/2018,04/23/2018,03/26 Pneumococcal Conjugate Vacc, 13 Valent (Prevnar) 05/02/2019 Pneumococcal Conjugate Vacci ne, 20-valent ([id number]) 10/21/2022 Pneumococcal Polysaccharide PPV23 (Pneumovax) 06/01/2010 Seasonal [...] encounter Miscellaneous Notes * Telephone Encounter - Jose Barlow DO - 03/31/2023 11:42 AM EDT [facility] [place] [facility] QuickNote [facility] Subprogram: Focused Care Management (3-9 months) [facility] Episode Start Date: Noted: 09/16/2021 Recommendations: Agree with plan and excellent education given to pt and family Orders: No orders of the defined types were placed in this encounter. To Do: Please see below for follow up items to be completed and correspondence: Agree with advice given and plan of care. No further action needed. Routed to sender as an FYI thatmessage was addressed. Jose Barlow DO [facility] - [facility] 03/31/2023 Scheduled appointments in the next 60 days: Future Appointments-next 60 days Date/Time Provider Specialty Dept Phone 04/01/2023 11:30 AM Nurse [facility] [phone] 04/02/2023 10:00 AM Nurse [facility] [phone] 04/11/2023 2:00 PM Chair 2 Hem Onc [facility] Hematology Oncology [phone] 04/11/2023 2:20 PM [facility] Pharmacist1 Pharmacy [phone] 04/13/2023 8:30 AM July Poe RN [facility] [phone] 05/19/2023 1:30 PM Monika Zamora, [facility] Transfer Table Operator; ZAK Lara [facility] [phone] 05/22/2023 1:30 PM (Arrive by 1:15 PM) ZAK Bolton Gastroenterology [phone] 06/27/2023 1:45 PM (Arrive by 1:30 PM) Tono Sanchez MD Hematology Oncology [phone] 07/13/2023 1:00 PM (Arrive by 12:45 PM) ZAK Rios Sleep Disorders [phone] 07/31/2023 1:20 PM (Arrive by 1:05 PM) Vanita Dunn MD Family Medicine [phone] 07/31/2023 2:20 PM Laboratory [facility] [phone] 10/04/2023 4:00 PM (Arrive by 3:45 PM) Renetta Martinez MD Gynecology Obstetrics [phone] * Telephone Encounter - Michelle Vyas RN - 03/31/2023 11:11 AM EDT [facility] weekend caregiver Acute Call Date: 03/31/2023 Time: 11:12 AM Name: Shaina Bustos : 1955 Caller: Mercedes Relationship to Caregiver No chief complaint on file. HPI: Shaina Bustos is a 67 year old old female that caregiver is calling [facility] to report headache and constipation Nursing Assessment: Call from caregiver Mercedes (patient and were on speaker). Patient complaining of headache and constipation. No visual changes with headache. Abdomen is distended and firm. She had a very small formed BM today along with slight pink urine in bedpan along with BM. No clots. No other urinary symptoms. Patient strains. Patient uses Bedpan. I asked if she could sit on a BS commode or toilet. They said she cant. said he gave her Lactulose this am. Chart reviewed and order for Lactulose is not as neededit is 3 x day. He has only been given when she is constipated. I suggested he give her the Lactulose so she does not get constipated. I explained that it is very uncomfortable to constipated. He saidhe would give it as ordered. I did explain to her that due to his being bed and w/c bound, not activity, uses bedpan and cannot sit upright when having BM, this puts her at risk for constipation. Patient's chief complaint for this call: Other, describe constipation and headache Pain Denies pain Baseline Assessment Able to performing ADLs at baseline (walking, daily tasks, etc.): Yes Chief Complaint is related to a chronic condition: Unknown Patient prescribed oxygen? No Patient has been ordered DME equipment (assistive devices, respiratory equipment, etc.): Yes Describe DME devices: Wheelchair, nebulizer, Bipap Patient is using DME device as directed: Yes Medication Reconciliation: (See medication list) Received flu shot this season: Yes Taking medication as ordered: No, Taking Lactulose as needed instead of 3 x day. Medications ordered/taking to treat reason for call: Yes, PRN medication(s) tylenol Heart failure symptoms: No COPD exacerbation symptoms: No Reinforcement Education: Take medications as ordered. Tylenol for headache as needed Take Lactulose as ordered Drink fluids up to restrictions. Avoid caffeinated drinks Treatment/Plan: (need to report) Level of call: Non-Acute Recommended treatment plan: Phone calls 24/48 hrs Clinical advice given over the phone Routing to care team to review and make recommendations if warranted. Patient's Pharmacy is [facility] in [place] Call back instructions provided to patient. Michelle Vyas. RN [facility] weekend caregiver [phone] documented in this encounter Plan of Treatment Upcoming Encounters Date Type Specialty Care Team Description 04/01/2023 Scheduled Telephone [facility], Nurse [address] [place] [address] [address] [place] [address] 04/02/2023 Scheduled Telephone [facility] [place] [facility], Nurse [place] [address] [place] [address] 04/11/2023 Hem/Onc Treatment Hematology Oncology [place], Chair 2 Hem Onc Scenery 200 [facility] [place], [place] [address] 04/11/2023 Office Visit Pharmacy Pharmacist1, [facility] [address], [place] [address] 04/13/2023 Home Visit [facility] July Poe RN [address] [place] [address] 05/19/2023 [facility]medicine [facility] Joselin Dawson CRNP [address] [place] [address] Monika Zamora, [address] [place] [address] 05/22/2023 Office Visit Gastroenterology Lyssa Stout CRNP [address] [place] [address] 06/27/2023 Office Visit Hematology Oncology Tono Sanchez MD [address] [place], [place] [address] 07/13/2023 Office Visit Sleep Disorders Lanette Fields CRNP [address] [place] [address] 07/31/2023 Office Visit Family Medicine Vanita Dunn MD [address] [place] [address] 07/31/2023 Laboratory Laboratory [facility] [address] [place] [address] 10/04/2023 Office Visit Gynecology Obstetrics Renetta Martinez MD [address] [place] [address] Scheduled Procedures Name Priority Associated Diagnoses Date/Ti [...] this encounter Medical Devices Implanted Type Area Author Agent Device Identifier Shelf Expiration Date Model / Serial / Lot Microtech Sure Clip Implanted:Qty: 2 on 06/03/2020 by Janis Hatch DO at OR [facility] Clip N/A: Colon 04/21/2022 [facility]-F-26-2 35-C-R / / [id number] documented as of this encounter Advance Directives Documents on File Type Date Recorded Patient Ship'S Officer Expl anation Advance Directives and Living Will 04/29/2021 ADVANCE DIRECTIVE / LIVING WILL LIVING WILL AND HEALTH CARE POA Power of Pricing Coordinator 04/29/2021 POWER OF A [facility] [...] the patient have Health Care Power of Pricing Coordinator? No Code Status History Code Status Date Activated Date Inactivated Comments Full Code 12/27/2021 2:50 PM 12/27/2021 8:02 PM This order reflects the patients wishes and were consensually agreed upon. Question Answer Comments Discussion of Advance Directives occurred with: Not Discussed Does the patient have a Living Will? No Does the patient have Health Care Power of Pricing Coordinator? No Full Code 03/31/2021 8:57 PM 04/03/2021 [...] Agents on File Name Relationship [facility] Syed Bustos Spouse Emergency Contact Care Teams Video Poker Floorman Relationship Specialty Start Date End Date Vanita Dunn MD [address] [place] [address] PCP - General Family Medicine 03/16/21 documented as of this encounter
--- OUTSIDE RECORDS SUMMARY | 2023-05-10 16:39 | External Medical Summary | Summary of Care ---
Author Name Unknown Organization [facility] Address [address] [facility] [place] [address] Phone [phone] Care Team Providers Care Greens Cutter Name Role Phone Vanita Dunn MD Primary Care Provid er Reason for Visit * Reason Onset Date Comments [facility]: Acute 03/31/2023 Encounter Details Date Type Department Care Team Description 03/31/2023 Telephone [facility] 132 [place] [address] [facility], Nurse [facility] 132 [place] [address] [facility]: Acute Allergies Active Allergy Reactions Severity Noted Date Comments Adhesive Tape Itching 04/29/2020 Penicillins Rash 02/12/2008 Penicillin G 07/20/2018 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 documented as of this encounter (statuses as of 03/31/2023) Medications Medication Sig Dispensed Refills Start Date End Date Status nystatin (NYSTOP) 234424 UNIT/GM powder Apply topically to affected area 3 times a day. 60 g 1 10/16/2019 Active Dexcom G6 Electric Motor Assembler And Tester Device Use as directed. To test blood sugars 4 times a day Dx E11.9 1 Each 0 09/14/2020 Active Dexcom G6 Transmitter Use as directed. To test blood sugars 4 times a day. Change every 90 days. Dx E11.9 1 Each 3 09/14/2020 Active OneTouch Verio In Vitro Strip (Glucose Blood) TESTING once daily 100 Strip 3 10/29/2020 Active OneTouch Delica Plus [id number] TESTING once daily 100 Each 10/29/2020 Active [...] than 7.0% ([facility]) USE TO INJECT INSULIN [...] situation. 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 if a intermediate plan is made -continue lexapro Generalized weakness [...] pain 01/24/2012 01/17/2017 Genetic Sleep Disorder Research Other*[id number] 05/13/2011 04/07/2016 Obstructive sleep apnea 01/18/2011 12/27/19 [...] (Prevnar) 05/02/2019 Pneumococcal Conjugate Vacci ne, 20-valent ([id number]) 10/21/2022 Pneumococcal Polysaccharide PPV23 (Pneumovax) 06/01/2010 Seasonal [...] Encounter - Michelle Vyas RN - 03/31/2023 1:10 PM EDT Call patient and spoke with Syed. Advised him to give lactulose as ordered to prevent constipation. Drinking fluids up to fluids restrictions. He said he will start giving the lactulose as ordered. Michelle Vyas. RN [facility] dross skimmer [phone] * Telephone Encounter - Jose Barlow DO - 03/31/2023 11:42 AM EDT [facility] Remote Medical Command QuickNote [facility] Subprogram: Focused Care Management (3-[address] months) [facility] Episode Start Date: Noted: 09/16/2021 Recommendations: [...] DO Remote Medical Command - [facility] 03/31/2023 Scheduled appointments in the next 60 days: Future Appointments-next 60 days Date/Time Provider Specialty Dept Phone 04/01/2023 11:30 AM Nurse [facility] [phone] 04/02/2023 10:00 AM Nurse [facility] [phone] 04/11/2023 2:00 PM Chair 2 Hem Onc Jesús Norton Hematology Oncology [phone] 04/11/2023 2:20 PM [facility] Pharmacist1 Pharmacy [phone] 04/13/2023 8:30 AM July Poe RN [facility] [phone] 05/19/2023 1:30 PM Monika Zamora [facility] Air Brake Tester; ZAK Lara [facility] [phone] 05/22/2023 1:30 PM (Arrive by 1:15 PM) ZAK Bolton Gastroenterology [phone] 06/27/2023 1:45 PM (Arrive by 1:30 PM) Tono Sanchez MD Hematology Oncology [phone] 07/13/2023 1:00 PM (Arrive by 12:45 PM) ZAK Rios Sleep Disorders [phone] 07/31/2023 1:20 PM (Arrive by 1:05 PM) Vanita Dunn MD Family Medicine [phone] 07/31/2023 2:20 PM Laboratory [facility] [phone] 10/04/2023 4:00 PM (Arrive by 3:45 PM) Renetta Martinez MD Gynecology Obstetrics [phone] * Telephone Encounter - Michelle Vyas RN - 03/31/2023 11:11 AM EDT [facility] dross skimmer Acute Call Date: 03/31/2023 Time: 11:12 AM Name: Shaina Bustos : 1955 Caller: Mercedes Relationship to Caregiver No chief complaint on file. HPI: Shaina Bustos is a 67 year old old female that caregiver is calling [facility] Intake to report headache and [...] make recommendations if warranted. Patient's Pharmacy is [facility] in [place] Call back instructions provided to patient. Michelle Vyas. UMA [facility] dross skimmer [phone] documented in this encounter Plan of Treatment Upcoming Encounters Date Type Specialty Care Team Description 04/01/2023 Scheduled Telephone [facility], Nurse [facility] [address] [place] [address] 04/02/2023 Scheduled Telephone [facility], Nurse [place] [address] [place] [address] 04/11/2023 Hem/Onc Treatment Hematology Oncology [place], Chair 2 Hem Onc [facility] [address] [facility] [place] [address] 04/11/2023 Office Visit Pharmacy Pharmacist1, [facility] 200 [facility] [place] [address] 04/13/2023 Home Visit [facility] July Poe RN [address] [place] [address] 05/19/2023 Telemedicine [facility] Joselin Dawson CRNP [address] [place] [address] Monika Zamora, [address] [place] [address] 05/22/2023 Office Visit Gastroenterology Lyssa Stout CRNP [address] [place] [address] 06/27/2023 Office Visit Hematology Oncology Tono Sanchez MD 200 [facility] [place] [address] 07/13/2023 Office Visit Sleep Disorders Lanette Fields CRNP [address] [place] [address] 07/31/2023 Office Visit Family Medicine Vanita Dunn MD [address] [place] [address] 07/31/2023 Laboratory Laboratory [facility] Laboratory [address] [place] [address] 10/04/2023 Office Visit Gynecology Obstetrics Renetta Martinez MD [address] [place] [address] Scheduled Procedures Name Priority Associated Diagnoses Date/Ti [...] 01/24/2022, Additional history exists TSH 07/06/2023 07/06/2022, 04/2022, 06/10/2021, Additional history exists Mammogram 12/10/2023 [...] this encounter Medical Devices Implanted Type Area Data Entry Representative Device Identifier Shelf Expiration Date Model / Serial / Lot Microtech Sure Clip Implanted:Qty: 2 on 06/03/2020 by Janis Hatch DO at OR [facility] Clip N/A: Colon 04/21/2022 [facility]-F-26-2 35-C-R / / [id number] documented as of this encounter Advance Directives Documents on File Type Date Recorded Patient Institutional Aide Expl anation Advance Directives and Living Will 04/29/2021 ADVANCE DIRECTIVE / LIVING WILL LIVING WILL AND HEALTH CARE POA Power of Agricultural Equipment Test Engineer 04/29/2021 POWER OF A [facility] [...] the patient have Health Care Power of Agricultural Equipment Test Engineer? No Code Status History Code Status Date Activated Date Inactivated Comments Full Code 12/27/2021 2:50 PM 12/27/2021 8:02 PM This order reflects the patients wishes and were consensually agreed upon. Question Answer Comments Discussion of Advance Directives occurred with: Not Discussed Does the patient have a Living Will? No Does the patient have Health Care Power of Agricultural Equipment Test Engineer? No Full Code 03/31/2021 8:57 PM [...] Agents on File Name Relationship Healthcare Agent [facility] p Communication Syde Bustos Spouse Emergency Contact Care Teams Greens Cutter Relationship Specialty Start Date End Date Vanita Dunn MD [address], [place] [phone] PCP - General Family Medicine 03/16/21 documented as of this encounter
--- OUTSIDE RECORDS SUMMARY | 2023-05-10 16:39 | External Medical Summary | Summary of Care ---
Author Name Unknown Organization [facility] Address [address] [facility] [place] [address] Phone [phone] Care Team Providers Care Staff Accountant Name Role Phone Vanita Dunn MD Primary Care Provid er Reason for Visit * Reason Onset Date Comments [facility]: Acute 03/31/2023 Encounter Details Date Type Department Care Team Description 03/31/2023 Telephone [facility], [facility] 132 [place] [address] [facility], Nurse [facility] 132 [place] [address] [facility]: Acute Allergies Active Allergy Reactions Severity Noted Date Comments Adhesive Tape Itching 04/29/2020 Penicillins Rash 02/12/2008 Penicillin G 07/20/2018 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 documented as of this encounter (statuses as of 03/31/2023) Medications Medication Sig Dispensed Refills Start Date End Date Status nystatin (NYSTOP) 230087 UNIT/GM powder Apply topically to affected area 3 times a day. 60 g 1 10/16/2019 Active Dexcom G6 Valet Parking Attendant Device Use as directed. To test blood sugars 4 times a day Dx E11.9 1 Each 0 09/14/2020 Active Dexcom G6 Transmitter Use as directed. To test blood sugars 4 times a day. Change every 90 days. Dx E11.9 1 Each 3 09/14/2020 Active OneTouch Verio In Vitro Strip (Glucose Blood) TESTING once daily 100 Strip 3 10/29/2020 Active OneTouch Delica Plus [id number] TESTING once daily 100 Each 10/29/2020 Active [...] current situation. 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 if a usp plan is made -continue lexapro Generalized weakness [...] pain 01/24/2012 01/17/2017 Genetic Sleep Disorder Research Other*[id number] 05/13/2011 04/07/2016 Obstructive sleep apnea 01/18/2011 12/27/19 [...] (Prevnar) 05/02/2019 Pneumococcal Conjugate Vacci ne, 20-valent ([id number]) 10/21/2022 Pneumococcal Polysaccharide PPV23 (Pneumovax) 06/01/2010 Seasonal [...] - 03/31/2023 11:42 AM EDT [facility] [place] Remote Medical [facility] QuickNote [facility] Subprogram: Focused Care Management (3-9 months) [facility] Episode Start Date: Noted: 09/16/2021 Recommendations: [...] Specialty Dept Phone 04/01/2023 11:30 AM Nurse [facility] [phone] 04/02/2023 10:00 AM Nurse [facility] [phone] 04/11/2023 2:00 PM Chair 2 Hem Onc [facility] Hematology Oncology [phone] 04/11/2023 2:20 PM [facility] Sp Pharmacist1 Pharmacy [phone] 04/13/2023 8:30 AM July Poe RN [facility] [phone] 05/19/2023 1:30 PM Monika Zamora, [facility] Cellophane Tester; ZAK Lara [facility] [phone] 05/22/2023 1:30 PM (Arrive by 1:15 PM) ZAK Bolton Gastroenterology [phone] 06/27/2023 1:45 PM (Arrive by 1:30 PM) Tono Sanchez MD Hematology Oncology [phone] 07/13/2023 1:00 PM (Arrive by 12:45 PM) ZAK Rios Sleep Disorders [phone] 07/31/2023 1:20 PM (Arrive by 1:05 PM) Vanita Dunn MD Family Medicine [phone] 07/31/2023 2:20 PM Laboratory [facility] [phone] 10/04/2023 4:00 PM (Arrive by 3:45 PM) Renetta Martinez MD Gynecology Obstetrics [phone] * Telephone Encounter - Michelle Vyas RN - 03/31/2023 11:11 AM EDT [facility] bad credit collector Acute Call Date: 03/31/2023 Time: 11:12 AM [...] if warranted. Patient's Pharmacy is [facility] in [place] Call back instructions provided to patient. Michelle Vyas. RN [facility] bad credit collector [phone] documented in this encounter Plan of Treatment Upcoming Encounters Date Type Specialty Care Team Description 04/01/2023 Scheduled Telephone [facility], Nurse [place] [address] [address] [place] [address] 04/02/2023 Scheduled Telephone [facility] [place] [facility], Nurse [place] [address] [place] [address] 04/11/2023 Hem/Onc Treatment Hematology Oncology [place], Chair 2 Hem Onc [place] 200 [facility] [place], [place] [address] 04/11/2023 Office Visit Pharmacy Pharmacist1, [facility] Sp [address] [place], [place] [address] 04/13/2023 Home Visit [facility] July Poe RN [address] [place] [address] 05/19/2023 Telemedicine [facility] Joselin Dawson CRNP [address] [place] [address] Monika Zamora, [address] [place] [address] 05/22/2023 Office Visit Gastroenterology Lyssa Stout CRNP [address] [place] [address] 06/27/2023 Office Visit Hematology Oncology Tono Sanchez MD [address] [place], [place] [address] 07/13/2023 Office Visit Sleep Disorders Lanette Fields CRNP [address] [place] [address] 07/31/2023 Office Visit Family Medicine Vanita Dunn MD [address] [place] [address] 07/31/2023 Laboratory Laboratory [facility] Laboratory [address] [place] [address] 10/04/2023 Office Visit Gynecology Obstetrics Renetta Martinez MD [address] [place] [address] Scheduled Procedures Name Priority Associated Diagnoses Date/Ti [...] this encounter Medical Devices Implanted Type Area Licensed Physical Therapy Assistant Device Identifier Shelf Expiration Date Model / Serial / Lot Microtech Sure Clip Implanted:Qty: 2 on 06/03/2020 by Janis Hatch DO at OR [facility] Clip N/A: Colon 04/21/2022 [facility]-F-26-2 35-C-R / / [id number] documented as of this encounter Advance Directives Documents on File Type Date Recorded Patient Cloud Systems Architect Expl anation Advance Directives and Living Will 04/29/2021 ADVANCE DIRECTIVE / LIVING WILL LIVING WILL AND HEALTH CARE POA Power of Regional Retail Sales Manager 04/29/2021 POWER OF A [facility]TORNEY HEALTH [...] the patient have Health Care Power of Regional Retail Sales Manager? No Code Status History Code Status Date Activated Date Inactivated Comments Full Code 12/27/2021 2:50 PM 12/27/2021 8:02 PM This order reflects the patients wishes and were consensually agreed upon. Question Answer Comments Discussion of Advance Directives occurred with: Not Discussed Does the patient have a Living Will? No Does the patient have Health Care Power of Regional Retail Sales Manager? No Full Code 03/31/2021 8:57 PM [...] Agents on File Name Relationship Healthcare [facility] Communication Syed Bustos Spouse Emergency Contact Care Teams Staff Accountant Relationship Specialty Start Date End Date Vanita Dunn MD [address] [place] [address] PCP - General Family Medicine 03/16/21 documented as of this encounter
--- OUTSIDE RECORDS SUMMARY | 2023-05-10 16:40 | External Medical Summary | Summary of Care ---
Author Name Unknown Organization [facility] Address [address] [facility] [place] [address] Phone [phone] Care Team Providers Care Production Leader Name Role Phone Vanita Dunn MD Primary Care Provid er Reason for Visit * Reason Onset Date Comments No Show 03/16/2023 Venofer Encounter Details Date Type Department Care Team Description 03/16/2023 Telephone Hematology/Oncology Treatment, [place] [address] [place] [id number] Tono Sanchez MD [address] [place] [address] No Show (Venofer) Allergies Active Allergy Reactions Severity Noted Date Comments Adhesive Tape Itching 04/29/2020 Penicillins Rash 02/12/2008 Penicillin G 07/20/2018 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 documented as of this encounter (statuses as of 03/17/2023) Medications Medication Sig Dispensed Refills Start Date End Date Status nystatin (NYSTOP) 766220 UNIT/GM powder Apply topically to affected area 3 times a day. 60 g 1 10/16/2019 Active Dexcom G6 Hvac Refrigeration Technician Device Use as directed. To test blood sugars 4 times a day Dx E11.9 1 Each 0 09/14/2020 Active Dexcom G6 Transmitter Use as directed. To test blood sugars 4 times a day. Change every 90 days. Dx E11.9 1 Each 3 09/14/2020 Active OneTouch Verio In Vitro Strip (Glucose Blood) TESTING once daily 100 Strip 3 10/29/2020 Active BasecampTouch Delica Plus [id number] TESTING once daily 100 Each 3 10/29/2020 [...] 3 Each 3 09/27/2021 Active Disposable Brief X-LargeIndications: Hypertensive heart disease with chronic diastolic congestive heart failure (HCC),Hepatic cirrhosis, unspecified hepatic cirrhosis type, unspecified whether ascites present (HCC),Other cerebral palsy (HCC),Urinary incontinence, unspecified type,Frequent fecal incontinence Use as directed 60 Each 5 10/06/2021 Active Trulicity 4.5 MG/0.5ML Subcutaneous Solution Pen-injector (Dulaglutide)Indica tions:Type 2 diabetes mellitus with hemoglobin A1c goal of less than 7.0% (HCC) inject 4.5mg (1 pen) under the skin once weekly 6 mL 5 02/22/2022 Active Spironolactone 25 MG Oral Tablet (Aldactone) [...] to wound 85 g 11 07/06/2022 Active NovoLOG FlexPen 100 UNIT/ML Subcutaneous Solution Pen-injectorIndicat ions:Type 2 diabetes mellitus with hemoglobin A1c goal of less than 8.0% (HCC) 35 Units at breakfast, 39 Units before lunch, 45 Units before supper 120 mL 3 07/28/2022 Active Furosemide 20 MG Oral Tablet (Lasix) [...] with food. 90 Tablet 3 01/01/2023 Active Lantus SoloStar 100 UNIT/ML Subcutaneous Solution Pen-injectorIndicat ions:Type 2 diabetes mellitus with hemoglobin A1c goal of less than 8.0% (HCC) Inject 60 units subcutaneously at bedtime 45 mL 3 01/24/2023 Active Nadolol 40 MG Oral Tablet (Corgard)Indication [...] MAX DAILY AMOUNT: 6 CAPSULES 360 Capsule 01/27/2023 Active Escitalopram Oxalate 20 MG Oral [...] 1 TABLET BY MOUTH DAILY 90 Tablet 02/19/2023 Active metFORMIN HCl ER 500 MG Oral Tablet Extended Release 24 Hour (Glucophage XR) TAKE 1 TABLET BY MOUTH DAILY with food. 90 Tablet 02/19/2023 Active Atorvastatin Calcium 80 MG Oral Tablet (Lipitor) TAKE 1 TABLET BY MOUTH EVERY DAY AT BEDTIME 90 Tablet 02/19/2023 Active Lactulose 10 GM/15ML Oral Solution (Constulose) take 45 ml by mouth 3 times daily 1200 mL 0 03/01/2023 Active Benzonatate 200 MG Oral CapsuleIndications: Bronchitis, complicated Take 1 Capsule by mouth 3 times a day as needed for Cough. 30 Capsule 1 03/07/2023 Active One-A-Day Womens 50+ Oral Tablet Take 1 Tablet by mouth in the morning. 0 Active Hospital, Clinic, or Other Facility Administered [...] as of this encounter (statuses as of 03/17/2023) Active Problems Problem Noted Date Thrombocytopenia 01/17/2023 [...] syndrome 01/17/2017 MEDICATION USE AGREEMENT 01/17/2017 Overview: 5/9/17 Acquired hypothyroidism 12/12/2016 Last Assessment & Plan: [...] as of this encounter (statuses as of 03/17/2023) Resolved Problems Problem Noted Date Resolved Date [...] Achilles tendinitis, right leg 04/08/2019 0 09/13/2021 half-way resident 04/08/2019 05/02/2019 Ambulatory dysfunction 04/04/2019 2 Fall 04/04/2019 05/05/2020 Sprain of right ankle 04/04/2019 05/05/2020 Recurrent major depressive disorder, in partial remission 04/04/2019 11/08/2022 Overview: More recent Dx noted on PL Last Assessment & Plan: Seems very depressed about current situation. 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 -continue [...] pain 01/24/2012 01/17/2017 Genetic Sleep Disorder Research Other*[id number] 05/13/2011 04/07/2016 Obstructive sleep apnea 01/18/2011 12/27/19 [...] as of this encounter (statuses as of 03/17/2023) Immunizations Name Administration Dates Next Due COVID-19 mRNA, LNP-s, No Pre serve, 2-Dose Series (Moderna) 01/05/2022,07/26/2021,12/21/2020,11/09 HEP A - Hepatitis A (Adult > 18 yrs) 09/24/2018, 03/26/2018 Hepatitis B, 20+ yrs 09/24/2018,04/23/2018,03/26 Pneumococcal Conjugate Vacc, 13 Valent (Prevnar) 05/02/2019 Pneumococcal Conjugate Vacci ne, 20-valent ([id number]) 10/21/2022 Pneumococcal Polysaccharide PPV23 (Pneumovax) 06/01/2010 Seasonal [...] (15 years old or older) No 03/31/20 21 Cognitive Status Response Date of Assessm ent Because of a physical, menta l, or emotional condition, do you have serious difficulty concentrating, remembering, or making decisions? (5 years old or older No 03/31/2021 documented as of this encounter Miscellaneous Notes * Telephone Encounter - THDA Serna - 03/17/2023 7:44 AM EDT Per nursing patient is rescheduled for venofer for 03/21/23. * Telephone Encounter - Renetta Schuler RN - 03/16/2023 4:38 PM EDT Pt did not show for Venofer infusion today. Called and spoke to pt; pt stated she forgot about the appointment. Scheduling: Please schedule pt for Venofer/labs from port on Monday03/21/23 at 1330 if space is available. If space is not available, please contact pt to arrange another appointment time. documented in this encounter Plan of Treatment Upcoming Encounters Date Type Specialty Care Team Description 03/21/2023 Hem/Onc Treatment Hematology Oncology [place], Chair 8 Hem Onc Scenery 200 [facility] [place] [address] 03/30/2023 Pharmacy Pharmacy Pharmacist1, [facility] [address] [place] [address] 04/13/2023 [facility] July Poe, RN [address] [place] [address] 04/19/2023 Office Visit Sleep Disorders Lanette Fields CRNP [address] [place] [address] 05/19/2023 Telemedicine [facility] Samir JoselinZAK Iyer [address] [place] [address] Monika Zamora, Community [facility] Registered Nurse Obstetrics [address] [place] [address] [place] [address] 05/22/2023 Office Visit Gastroenterology Lyssa Stout CRNP [address] [place] [address] 06/27/2023 Office Visit Hematology Oncology Tono Sanchez MD 200 [facility] [place] [address] 07/31/2023 Office Visit Family Medicine Mona, Vanita Barbour MD [address] [place] [address] 07/31/2023 Laboratory Laboratory [facility] Laboratory [address] [place] [address] 10/04/2023 Office Visit Gynecology Obstetrics Renetta Martinez MD [address] [place] [address] Scheduled Procedures Name Priority Associated Diagnoses Date/Ti [...] 02/02/2024 02/01/2023, 11/10, 08/30/2022, Additional history exists Yearly B-12 02/23/2024 02/22/2023, 010 01/2022, 07/06/2021, Additional [...] this encounter Medical Devices Implanted Type Area Dispensing And Measuring Optician Device Identifier Shelf Expiration Date Model / Serial / Lot Microtech Sure Clip Implanted:Qty: 2 on 06/03/2020 by Janis Hatch, at OR [facility] Clip N/A: Colon 04/21/2022 [facility]-F-26-2 35-C-R / / [id number] documented as of this encounter Advance Directives Documents on File Type Date Recorded Patient Attraction Attendant Expl anation Advance Directives and Living Will 04/29/2021 ADVANCE DIRECTIVE / LIVING WILL LIVING WILL AND HEALTH CARE POA Power of Tubing Mill Operator 04/29/2021 POWER OF A [facility]TORNEY HEALTH [...] the patient have Health Care Power of Tubing Mill Operator? No Code Status History Code Status Date Activated Date Inactivated Comments Full Code 12/27/2021 2:50 PM 12/27/2021 8:02 PM This order reflects the patients wishes and were consensually agreed upon. Question Answer Comments Discussion of Advance Directives occurred with: Not Discussed Does the patient have a Living Will? No Does the patient have Health Care Power of Tubing Mill Operator? No Full Code 03/31/2021 8:57 PM [...] 03/08/2021 3:24 AM 03/11/2021 6:09 PM This order reflects the patients wishes and were consensually agreed upon. Question Answer Comments Discussion of Advance Directives occurred with: Patient Healthcare Agents on File Name Relationship [facility] Communication Syed Bustos Spouse Emergency Contact Care Teams Production Leader Relationship Specialty Start Date End Date Vanita Dunn MD [address], [place] [phone] PCP - General Family Medicine 03/16/21 documented as of this encounter
--- OUTSIDE RECORDS SUMMARY | 2023-05-10 16:40 | External Medical Summary ---
Author Name Unknown Address Unknown Organization K09:[facility] [place] [address] Laboratory Report Ordering Provider Test Date Status JACOB CORBETT 03/21/2023 14:43:27 Final Observation Date Value Abnormality Reference (Units ) Status SYNC LEUKOCYTES IN BLOOD BY AUTOMATED COUNT 03/21/2023 14:43:27 3.38 Below low normal 4.00-10.80 (K/uL) Final Segs 03/21/2023 14:43:27 53.8 40.0-75.0 (%) Final Lymphs % 03/21/2023 14:43:27 22.8 18.0-42.0 (%) Final Monos 03/21/2023 14:43:27 13.3 Above high normal 1.0-11.0 (%) Final Eosinophils 03/21/2023 14:43:27 8.9 Above high normal 0.0-6.0 (%) Final Basos 03/21/2023 14:43:27 1.2 0.0-2.0 (%) Final Absolute Segs 03/21/2023 14:43:27 1.82 1.80-7.70 (K/uL) Final Lymphs, absolute 03/21/2023 14:43:27 0.77 Below low normal 1.00-4.80 (K/ul) Final Monos, Abs 03/21/2023 14:43:27 0.45 0.00-1.10 (K/uL) Final Eos, Abs 03/21/2023 14:43:27 0.30 0.00-0.70 (K/uL) Final Basos, Abs 03/21/2023 14:43:27 0.04 0.00-0.20 (K/uL) Final Performing Location [facility] [address]
--- OUTSIDE RECORDS SUMMARY | 2023-05-10 16:40 | External Medical Summary ---
Author Name Unknown Address Unknown Organization K09:[facility] [place] [place] [address] Laboratory Report Ordering Provider Test Date Status JACOB CORBETT 03/21/2023 14:43:27 Final Observation Date Value Abnormality Reference (Units ) Status Nucleated erythrocytes/100 leukocytes [Ratio] in Blood by Automated count 03/21/2023 14:43:27 Final Performing Location [facility] [place] [address]
--- OUTSIDE RECORDS SUMMARY | 2023-05-10 16:40 | External Medical Summary ---
Author Name Unknown Address Unknown Organization K09:[facility] [place] [address] Laboratory Report Ordering Provider Test Date Status JACOB CORBETT 03/21/2023 14:43:27 Final Observation Date Value Abnormality Reference (Units ) Status WBC, Total 03/21/2023 14:43:27 3.38 Below low normal 4. 00-10.80 (K/uL) Final RBC 03/21/2023 14:43:27 2.63 3.85-5.15 (M/uL) Final Hemoglobin 03/21/2023 14:43:27 9.8 Below low normal 12 .0-15.3 (g/dL) Final HCT 03/21/2023 14:43:27 32.4 Below low normal 36. 0-45.2 (%) Final MCV 03/21/2023 14:43:27 123.2 81.5-97.5 (fL) Final MCH 03/21/2023 14:43:27 37.3 27.0-34.0 (pg) Final MCHC 03/21/2023 14:43:27 30.2 32.0-36.0 (g/dL) Final RDW 03/21/2023 14:43:27 17.4 11.5-15.5 (%) Final Platelets 03/21/2023 14:43:27 69 Below low normal 140 -400 (K/uL) Final MPV 03/21/2023 14:43:27 12.6 6.6-11.1 ( fL) Final Performing Location [facility] [place] [address]
--- OUTSIDE RECORDS SUMMARY | 2023-05-10 16:40 | External Medical Summary ---
Author Name Unknown Address Unknown Organization K01:[facility] [address] [place] [address] Laboratory Report Ordering Provider Test Date Status JACOB CORBETT 03/21/2023 14:43:27 Final Observation Date Value Abnormality Reference (Units ) Status Ferritin 03/21/2023 14:43:27 122 13-150 (ng /mL) Final Performing Location [facility] - [address] [place] [address]
--- OUTSIDE RECORDS SUMMARY | 2023-05-10 16:40 | External Medical Summary | Summary of Care ---
Author Name Unknown Organization [facility] Address [address] [facility] [place] [address] Phone [phone] Care Team Providers Care Top Frame Fitter Name Role Phone Vanita Dunn MD Primary Care Provid er Reason for Visit * Reason Comments eRx-Medication Refill Encounter Details Date Type Department Care Team Description 03/25/[address] [place] [address] Lyssa [facility] [address] [facility] [address] Allergies Active Allergy Reactions Severity Noted Date Comments Adhesive Tape Itching 04/29/2020 Penicillins Rash 02/12/2008 Penicillin G 07/20/2018 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 documented as of this encounter (statuses as of 03/27/2023) Medications Medication Sig Dispensed Refills Start Date End Date Status nystatin (NYSTOP) 083258 UNIT/GM powder Apply topically to affected area 3 times a day. 60 g 1 0 Active Dexcom G6 Guardian Family Member Device Use as directed. To test blood sugars 4 times a day Dx E11.9 1 Each 0 1 Active Dexcom G6 Transmitter Use as directed. To test blood sugars 4 times a day. Change every 90 days. Dx E11.9 1 Each 3 1 Active OneTouch Verio In Vitro Strip (Glucose Blood) TESTING once daily 100 Strip 3 1 Active ApplangoTouch Delica Plus [id number] TESTING once daily 100 Each 3 1 [...] the morning. 180 Tablet 3 2 Active traZODone HCl 50 MG Oral Tablet (Desyrel)Indication s:Sleep disturbances TAKE 1 TABLET BY MOUTH AT BEDTIME 90 Tablet 3 2 Active Levothyroxine Sodium 150 MCG Oral Tablet (Levoxyl)Indication s:Acquired hypothyroidism Take by mouth 1 Tablet in the morning. (at least 30 min prior to breakfast or other meds). 30 Tablet 11 2 Active BD Pen Needle Mini U/F 31G X 5 MM (Insulin Pen Needle)Indications: Type 2 diabetes mellitus with hemoglobin A1c goal of less than 7.0% ([facility]) USE TO INJECT INSULIN FOUR [...] goal of less than 8.0% ([facility]) Inject 46 Units under the skin daily. 45 mL 3 3 Active NovoLOG FlexPen 100 UNIT/ML Subcutaneous Solution Pen-injectorIndicat ions:Type 2 diabetes mellitus with hemoglobin A1c goal of less than 8.0% ([facility]) 35 Units at breakfast, 45 Units before lunch, 82 Units before supper 150 mL 3 3 Active Trulicity 4.5 MG/0.5ML Subcutaneous Solution Pen-injector (Dulaglutide)Indica tions:Type 2 diabetes mellitus with hemoglobin A1c goal of less than 7.0% ([facility]) inject 4.5mg ( 1 pen) under skin once weekly 6 mL 3 3 Active Lactulose 10 GM/15ML Oral Solution (Constulose) Take 45 mL by mouth in the morning and 45 mL at noon and 45 mL before bedtime. take 45ml by mouth three times daily. 3784 mL 6 3 Active Lactulose 10 GM/15ML Oral Solution (Constulose) take 45 ml by mouth 3 times daily 1200 mL 0 3 03/27/20 23 Discontinued Hospital, Clinic, or Other Facility [...] as of this encounter (statuses as of 03/27/2023) Active Problems Problem Noted Date Thrombocytopenia 01/17/2023 [...] as of this encounter (statuses as of 03/27/2023) Resolved Problems Problem Noted Date Resolved Date [...] current situation. 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 if a chcf plan is made -continue lexapro Generalized weakness [...] to see urine cx from recent hospitalization 2/18 Currently on bactrim. Repeat straight cath UA this week Sleep disturbance 01/24/2012 07/02/2014 Malaise and fatigue 01/24/2012 06/07/2016 Myalgia and myositis 01/24/2012 06/07/2016 Urinary frequency 01/24/2012 07/02/2014 Urgency of urination 01/24/2012 06/07/2016 Kidney disease, chronic, stage III (GFR 30-59 ml /min) 01/24/2012 03/27/2012 Chronic pain 01/24/2012 01/17/2017 Genetic Sleep Disorder Research Other*[id number] 05/13/2011 04/07/2016 Obstructive sleep apnea 01/18/2011 12/27/19 [...] as of this encounter (statuses as of 03/27/2023) Immunizations Name Administration Dates Next Due COVID-19 mRNA, LNP-s, No Pre serve, 2-Dose Series (Moderna) 01/05/2022,07/26/2021,12/21/2020,11/09 HEP A - Hepatitis A (Adult > 18 yrs) 09/24/2018, 03/26/2018 Hepatitis B, 20+ yrs 09/24/2018,04/23/2018,03/26 Pneumococcal Conjugate Vacc, 13 Valent (Prevnar) 05/02/2019 Pneumococcal Conjugate Vacci ne, 20-valent ([id number]) 10/21/2022 Pneumococcal Polysaccharide PPV23 (Pneumovax) 06/01/2010 Seasonal [...] Miscellaneous Notes * Telephone Encounter - ZAK Bolton - 03/27/2023 10:08 AM EDT Signed Prescriptions: Disp Refills Lactulose 10 GM/15ML Oral Solution (Constu*3784 mL6 Sig: Take 45 mL by mouth in the morning and 45 mL at noon and 45 mL before bedtime. take 45ml by mouth three times daily. Authorizing Provider: LYSSA SAXENA * Telephone Encounter - Cecil Padilla RN - 03/27/2023 10:07 AM EDTPending Prescriptions: Disp Refills Lactulose 10 GM/15ML Oral Solution (Constu*3784 mL6 Sig: Take 45 mL by mouth in the morning and 45 mL at noon and 45 mL before bedtime. take 45ml by mouth three times daily. * Telephone Encounter - Preethi Colón LPN - 03/27/2023 8:17 AM EDTPending Prescriptions: Disp Refills Lactulose 10 GM/15ML Oral Solution [Pharma*1,200 *0 Sig: take 45ml by mouth three times daily * Telephone Encounter - Sowmya Poon - 03/25/2023 3:54 PM EDTPending Prescriptions: Disp Refills Lactulose 10 GM/15ML Oral Solution [Pharma*1,200 *0 Sig: take 45ml by mouth three times daily documented in this encounter Plan of Treatment Upcoming Encounters Date Type Specialty Care Team Description 04/11/2023 Hem/Onc Treatment Hematology Oncology [place], Chair 2 Hem Onc Scenery [address] [place] [address] 04/11/2023 Office Visit Pharmacy Pharmacist1, [facility] [address] [facility] [place] [address] 04/13/2023 Home Visit [facility] July Poe RN 132 [facility] [place] [address] 05/19/2023 Telemedicine [facility] Joselin Dawson CRNP [address] [place] [address] Monika Zamora, Community Health Rehabilitation Manager [address] [place] [address] [place] [address] 05/22/2023 Office Visit Gastroenterology Lyssa Saxena CRNP [address] [place] [address] 06/27/2023 Office Visit Hematology Oncology Tono Sanchez MD 200 [place] [address] 07/31/2023 Office Visit Family Medicine Vanita Dunn MD [address] [place] [address] 07/31/2023 Laboratory Laboratory [facility] [address] [place] [address] 10/04/2023 Office Visit Gynecology Obstetrics Renetta [place] MD [address] [place] [address] Scheduled Procedures Name Priority Associated Diagnoses Date/Ti [...] this encounter Medical Devices Implanted Type Area Academic Tutor Device Identifier Shelf Expiration Date Model / Serial / Lot Microtech Sure Clip Implanted:Qty: 2 on 06/03/2020 by Janis Hatch DO at OR [facility] Clip N/A: Colon 04/21/2022 ROCC-F-26-2 35-C-R / / [id number] documented as of this encounter Advance Directives Documents on File Type Date Recorded Patient Carousel Operator Expl anation Advance Directives and Living Will 04/29/2021 ADVANCE DIRECTIVE / LIVING WILL LIVING WILL AND HEALTH CARE POA Power of Associate Product Integrity Engineer 04/29/2021 POWER OF A [facility] [...] patient have Health Care Power of Associate Product Integrity Engineer? No Code Status History Code Status Date Activated Date Inactivated Comments Full Code 12/27/2021 2:50 PM 12/27/2021 8:02 PM This order reflects the patients wishes and were consensually agreed upon. Question Answer Comments Discussion of Advance Directives occurred with: Not Discussed Does the patient have a Living Will? No Does the patient have Health Care Power of Associate Product Integrity Engineer? No Full Code 03/31/2021 8:57 PM [...] Agents on File Name Relationship Healthcare Agent [facility] Communication Syed Bustos Spouse Emergency Contact Care Teams Top Frame Fitter Relationship Specialty Start Date End Date Vanita Dunn MD [address] [place] [address] PCP - General Family Medicine 03/16/21 documented as of this encounter
--- OUTSIDE RECORDS SUMMARY | 2023-05-10 16:40 | External Medical Summary | Summary of Care ---
Author Name Unknown Organization [facility] Address [address] [facility] [place] [address] Phone [phone] Care Team Providers Care Account Coordinator Name Role Phone Vanita Dunn MD Primary Care Provid er Reason for Visit * Reason Comments IV Therapy Venofer Encounter Details Date Type Department Care Team Description 03/21/2023 Hem/Onc Treatment Hematology/Oncology [place], [place] [address] [place] [address] Mary[place], Chair 8 Hem Onc Scenery [address] [place] [address] Iron deficiency anemia due to chronic blood loss* Allergies Active Allergy Reactions Severity Noted Date Comments Adhesive Tape Itching 04/29/2020 Penicillins Rash 02/12/2008 Penicillin G 07/20/2018 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 documented as of this encounter (statuses as of 03/21/2023) Medications Medication Sig Dispensed Refills Start Date End Date Status nystatin (NYSTOP) 193799 UNIT/GM powder Apply topically to affected area 3 times a day. 60 g 1 10/16/2019 Active Dexcom G6 Training Representative Device Use as directed. To test blood sugars 4 times a day Dx E11.9 1 Each 0 09/14/2020 Active Dexcom G6 Transmitter Use as directed. To test blood sugars 4 times a day. Change every 90 days. Dx E11.9 1 Each 3 09/14/2020 Active OneTouch Verio In Vitro Strip (Glucose Blood) TESTING once daily 100 Strip 3 10/29/2020 Active OneTouch Delica Plus [id number] TESTING once daily 100 Each 3 10/29/2020 [...] hemoglobin A1c goal of less than 7.0% ([facility]) USE TO INJECT INSULIN FOUR TIMES DAILY. [...] AT BEDTIME 90 Tablet 1 02/19/2023 Active Lactulose 10 GM/15ML Oral Solution (Constulose) take 45 ml by mouth 3 times daily 1200 mL 0 03/01/2023 Active Benzonatate 200 MG Oral CapsuleIndications:B ronchitis, [...] as of this encounter (statuses as of 03/21/2023) Active Problems Problem Noted Date Thrombocytopenia 01/17/2023 [...] as of this encounter (statuses as of 03/21/2023) Resolved Problems Problem Noted Date Resolved Date [...] Achilles tendinitis, right leg 04/08/2019 0 09/13/2021 retirement resident 04/08/2019 05/02/2019 Ambulatory dysfunction 04/04/2019 2 [...] pain 01/24/2012 01/17/2017 Genetic Sleep Disorder Research Other*[id number] 05/13/2011 04/07/2016 Obstructive sleep apnea 01/18/2011 12/27/19 [...] duplicate Sleep apnea 02/08/2008 03/28/2012 Overview: Compliance 4/12 to 01/09/11 -- used device 19 of [...] as of this encounter (statuses as of 03/21/2023) Immunizations Name Administration Dates Next Due COVID-19 mRNA, LNP-s, No Pre serve, 2-Dose Series (Moderna) 01/05/2022,07/26/2021,12/21/2020,11/09 HEP A - Hepatitis A (Adult > 18 yrs) 09/24/2018, 03/26/2018 Hepatitis B, 20+ yrs 09/24/2018,04/23/2018,03/26 Pneumococcal Conjugate Vacc, 13 Valent (Prevnar) 05/02/2019 Pneumococcal Conjugate Vacci ne, 20-valent ([id number]) 10/21/2022 Pneumococcal Polysaccharide PPV23 (Pneumovax) 06/01/2010 Seasonal [...] Sign Reading Time Taken Comments Blood Pressure 109/63 03/21/2023 2:41 PM EDT Pulse 67 03/21/2023 2:41 PM EDT Temperature 36.6 C (97.8 F) 03/21/2023 2:41 PM ED T Respiratory Rate 20 03/21/2023 2:41 PM EDT Oxygen Saturation 95% 03/21/2023 2:41 PM EDT Inhaled Oxygen Concentration - - [...] as of this encounter Nursing Notes * Renetta Schuler RN - 03/21/2023 4:44 PM EDT Pt completed treatment without issues. VAD flushed with 10 ml NSS and Heparin 5 ml (100 units/ml). Mason needle removed intact. Goals: Pt will remain free from injury. Possible barriers to meeting goals: pt is a high fall risk Stability of the patient: Moderately unstable - medium risk of patient condition declining or worsening Summary regarding today's goals: Met: Pt remained free from injury during treatment today. Discharged in stable condition. No coverage. * Renetta Schuler RN - 03/21/2023 2:50 PM EDT Chair 1, [place]. Pt has no acute concerns to report today. VAD accessed yielding positive blood return; unable to collect adequate specimen for ordered labs. Staple Cutter from lab collected specimenperipherally. Venofer infusing. Safety and Risk for Injury Patient will remain free from injury. Ensure appropriate safety devices are available. Provide and maintain safe environment. documented in this encounter Plan of Treatment Upcoming Encounters Date Type Specialty Care Team Description 04/11/2023 Hem/Onc Treatment Hematology [place]cology [place], Chair 2 Hem Onc Scenery [address] [place] [address] 04/11/2023 Office Visit Pharmacy Pharmacist1, [facility] [address] [place] [address] 04/13/2023 Home Visit [facility] July Poe, RN [address] [place] [address] 04/19/2023 Office Visit Sleep Disorders Lanette Fields CRNP [address] [place] [address] 05/19/2023 Telemedicine [facility] Joselin Dawson CRNP [address] [place] [address] Monika Zamora, [address] [place] [address] 05/22/2023 Office Visit Gastroenterology Lyssa Stout CRNP [address] [place] [address] 06/27/2023 Office Visit Hematology Oncology Tono Sanchez MD 200 [place] [address] 07/31/2023 Office Visit Family Medicine Vanita Dunn MD [address] [place] [address] 07/31/2023 Laboratory Laboratory [facility] [address] [place] [address] 10/04/2023 Office Visit Gynecology Obstetrics Renetta Martinez MD [address] [place] [address] Pending Results Name Type Priority Associated Diagnoses Date /Time FERRITIN Lab STAT Iron deficiency anemia due to chronic blood loss 03/21/2023 2:43 PM EDT Scheduled Procedures Name Priority Associated [...] this encounter Medical Devices Implanted Type Area Airborne Mission Systems Superintendent Device Identifier Shelf Expiration Date Model / Serial / Lot Microtech Sure Clip Implanted:Qty: 2 on 06/03/2020 by Janis Hatch DO at OR [facility] Clip N/A: Colon 04/21/2022 [facility]-F-26-2 35-C-R / / [id number] documented as of this encounter Procedures Procedure Name Priority Date/Time Associated Diagnosis Comments DIFFERENTIAL, AUTOMATED STAT 03/21/2023 2:43 PM EDT Iron deficiency anemia due to chronic blood loss CBC WITH WBC DIFFERENTIAL STAT 03/21/2023 2:43 PM EDT Iron deficiency anemia due to chronic blood loss CBC STAT 03/21/2023 2:43 PM EDT Iron deficiency anemia due to chronic blood loss DIFFERENTIAL, TECHNOLOGIST REVIEW Routine 03/21/2023 2:43 PM EDT Iron deficiency anemia due to chronic blood loss documented in this encounter Results * DIFFERENTIAL, TECHNOLOGIST REVIEW (03/21/2023 2:43 PM EDT) nRBCs 03/21/2023 3:08 PM EDT [facility] 56-02 Blood Venous blood specimen / Unknown Venipuncture / Unknown 03/21/2023 2:43 PM EDT 03/21/2023 2:43 PM EDT Tono Sanchez MD LAB BLOOD ORDERABLES [facility] 56-[address] [place] [address] * (ABNORMAL) DIFFERENTIAL, AUTOMATED (03/21/2023 2:43 PM EDT) WBC 3.38(L) 4.00 - 10.80 K/uL 03/21/2023 3:08 PM EDT [facility] 56-02 Neutrophils % 53.8 40.0 - 75.0 % 03/21/2023 3:08 PM EDT [facility] 56- Lymphocytes % 22.8 18.0 - 42.0 % 03/21/2023 3:08 PM EDT [facility] 56- Monocytes % 13.3(H) 1.0 - 11.0 % 03/21/2023 3:08 PM EDT [facility] 56- Eosinophils % 8.9(H) 0.0 - 6.0 % 03/21/2023 3:08 PM EDT [facility] 56-02 Basophils % 1.2 0.0 - 2.0 % 03/21/2023 3:08 PM EDT [facility] 56-02 Absolute Neutrophils 1.82 1.80 - 7.70 K/uL 03/21/2023 3:08 PM EDT [facility] 56-02 Absolute Lymphocytes 0.77(L) 1.00 - 4.80 K/ul 03/21/2023 3:08 PM EDT [facility] 56-02 Absolute Monocytes 0.45 0.00 - 1.10 K/uL 03/21/2023 3:08 PM EDT [facility] 56-02 Absolute Eosinophils 0.30 0.00 - 0.70 K/uL 03/21/2023 3:08 PM EDT [facility] 56-02 Absolute Basophils 0.04 0.00 - 0.20 K/uL 03/21/2023 3:08 PM EDT [facility] 56-02 Blood Venous blood specimen / Unknown Venipuncture / Unknown 03/21/2023 2:43 PM EDT 03/21/2023 2:43 PM EDT Tono Sanchez MD LAB BLOOD ORDERABLES [facility] [address] [place], [place] [id number] * (ABNORMAL) CBC (03/21/2023 2:43 PM EDT) WBC 3.38(L) 4.00 - 10.80 K/uL 03/21/2023 3:[address]T [address] RBC 2.63 3.85 - 5.15 M/uL 03/21/2023 3:[address]T [address] HGB 9.8(L) 12.0 - 15.3 g/dL 03/21/2023 3:08 PM EDT [facility] 56 HCT 32.4(L) 36.0 - 45.2 % 03/21/2023 3:[address]T [address] MCV 123.2 81.5 - 97.5 fL 03/21/2023 3:[address]T [address] MCH 37.3 27.0 - 34.0 pg 03/21/2023 3:08 PM EDT [facility] MCHC 30.2 32.0 - 36.0 g/dL 03/21/2023 3:08 PM EDT [facility] 56 RDW 17.4 11.5 - 15.5 % 03/21/2023 3:08 PM EDT [facility] 56 PLT 69(L) 140 - 400 K/uL 03/21/2023 3:08 PM EDT [facility] 56 MPV 12.6 6.6 - 11.1 fL 03/21/2023 3:08 PM EDT [facility] 56 Blood Venous blood specimen / Unknown Venipuncture / Unknown 03/21/2023 2:43 PM EDT 03/21/2023 2:43 PM EDT Tono Sanchez MD LAB BLOOD ORDERABLES [facility] 56 [address] [place] [address] documented in this encounter Visit Diagnoses Diagnosis Iron deficiency anemia due to chronic blood loss- Primary Iron deficiency anemia secondary to blood loss (chronic) documented in this encounter Administered Medications Active Administered Medications - up to 3 most recent administrations Medication Order MAR Action Action Date Dose Rate Site diphenhydrAMINE (Benadryl) inj 50 mg 50 mg, IV Push, ONCE PRN Other, Hypersensitivity Reaction, Starting on Mon03/21/23 at 1443, Until Mon03/22/23 at 1442, For 24 hours EPINEPHrine 1 MG/ML inj 0.3 mg 0.3 mg, Intramuscular, ONCE PRN Other, Hypersensitivity Reaction or Anaphylaxis, Starting on Mon03/21/23 at 1443, Until Mon03/22/23 at 1442, For 24 hours hEParin 100 UNIT/ML Lock Flush inj 500 Units 500 Units (5 mL), IV Lock, PRN Other, IV Flush, Starting on Mon03/21/23 at 1443, Until Mon03/22/23 at 1442, For 24 hours, Do not flush if lock, PICC, or central line not in place; IV infusing or unable to flush. Given 03/21/2023 4:17 PM EDT 500 Units Hydrocortisone Sod Suc (PF) (Solu-Cortef) inj 100 mg 100 mg, IV Push, ONCE PRN Other, Hypersensitivity Reaction, Starting on Mon03/21/23 at 1443, Until Mon03/22/23 at 1442, For 24 hours NSS infusion 500 mL, Intravenous, at 50 mL/hr, CONTINUOUS, Starting on Mon03/21/23 at 1545, Until Mon03/22/23 at 0144 Start Infusion 03/21/2023 2:40 PM EDT 500 mL 50 mL/hr sodium chloride 0.9 % flush/inj 10 mL 10 mL, IV Push, PRN Other, IV Flush, Starting on Mon03/21/23 at 1443, Until Mon03/22/23 at 1442, For 24 hours, Do not flush if lock, PICC, or central line not in place; IV infusing or unable to flush. Given 03/21/2023 4:17 PM EDT 10 mL Inactive Administered Medications - up to 3 most recent administrations Medication Order MAR Action Action Date Dose Rate Site Iron Sucrose (Venofer) 300 mg in NSS 250 mL ivpb 300 mg, IV Piggyback, ONCE, 1 dose, On Mon03/21/23 at 1615, Administer over 90 Minutes Start Infusion 03/21/2023 2:43 PM EDT 300 mg 166.67 mL/hr documented in this encounter Advance Directives Documents on File Type Date Recorded Patient Typing Checker Expl anation Advance Directives and Living Will 04/29/2021 ADVANCE DIRECTIVE / LIVING WILL LIVING WILL AND HEALTH CARE POA Power of Mailing Jogger 04/29/2021 POWER OF A [facility] [...] the patient have Health Care Power of Mailing Jogger? No Code Status History Code Status Date Activated Date Inactivated Comments Full Code 12/27/2021 2:50 PM 12/27/2021 8:02 PM This order reflects the patients wishes and were consensually agreed upon. Question Answer Comments Discussion of Advance Directives occurred with: Not Discussed Does the patient have a Living Will? No Does the patient have Health Care Power of Mailing Jogger? No Full Code 03/31/2021 8:57 PM 04/03/2021 [...] Agents on File Name Relationship [facility] Communication Syed Bustos Spouse Emergency Contact Care Teams Account Coordinator Relationship Specialty Start Date End Date Vanita Dunn MD [address] [place] [address] PCP - General Family Medicine 03/16/21 documented as of this encounter
--- OUTSIDE RECORDS SUMMARY | 2023-05-10 16:40 | External Medical Summary | Summary of Care ---
Author Name Unknown Organization [facility] Address [address] [facility] [place] [address] Phone [phone] Care Team Providers Care Religion Professor Name Role Phone Vanita Dunn MD Primary Care Provid er Reason for Visit * Reason Comments Diabetes Follow-Up Dosage Adjustment In Person (Anticoag Cl inic) Encounter Details Date Type Department Care Team Description 03/21/2023 Office Visit Pharmacy, [facility] [place] [address] [facility] [place] [address] Pharmacist1, [facility] [address] [facility] [place] [address] Type 2 diabetes mellitus with hemoglobin A1c goal of less than 8.0% ([facility])*; DM type 2 with diabetic peripheral neuropathy ([facility]) Allergies Active Allergy Reactions Severity Noted Date Comments Adhesive Tape Itching 04/29/2020 Penicillins Rash 02/12/2008 Penicillin G 07/20/2018 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 documented as of this encounter (statuses as of 03/21/2023) Medications Medication Sig Dispensed Refills Start Date End Date Status nystatin (NYSTOP) 229105 UNIT/GM powder Apply topically to affected area 3 times a day. 60 g 1 0 Active Dexcom G6 Umbrella Mender Device Use as directed. To test blood sugars 4 times a day Dx E11.9 1 Each 0 1 Active Dexcom G6 Transmitter Use as directed. To test blood sugars 4 times a day. Change every 90 days. Dx E11.9 1 Each 3 1 Active OneTouch Verio In Vitro Strip (Glucose Blood) TESTING once daily 100 Strip 3 1 Active OneTouch Delica Plus [id number] TESTING once daily 100 Each 3 1 [...] as directed 60 Each 5 2 Active Trulicity 4.5 MG/0.5ML Subcutaneous Solution Pen-injector (Dulaglutide)Indica tions:Type 2 diabetes mellitus with hemoglobin A1c goal of less than 7.0% (HCC) inject 4.5mg (1 pen) under the skin once weekly 6 mL 5 2 Active Spironolactone 25 MG Oral [...] MAX DAILY AMOUNT: 6 CAPSULES 360 Capsule 3 Active Escitalopram Oxalate 20 MG Oral [...] AT BEDTIME 90 Tablet 1 3 Active Lactulose 10 GM/15ML Oral Solution (Constulose) take 45 ml by mouth 3 times daily 1200 mL 0 3 Active Benzonatate 200 MG Oral CapsuleIndications: [...] before supper 150 mL 3 3 Active NovoLOG FlexPen 100 UNIT/ML Subcutaneous Solution Pen-injectorIndicat ions:Type 2 diabetes mellitus with hemoglobin A1c goal of less than 8.0% (HCC) 35 Units at breakfast, 39 Units before lunch, 45 Units before supper 120 mL 3 2 03/21/20 23 Discontinued Lantus SoloStar 100 UNIT/ML Subcutaneous Solution Pen-injectorIndicat ions:Type 2 diabetes mellitus with hemoglobin A1c goal of less than 8.0% (HCC) INJECT 60 UNITS UNDER THE SKIN AT BEDTIME 45 mL 3 3 03/21/20 23 Discontinued Hospital, Clinic, or Other Facility [...] current situation. 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 if a mcc plan is made -continue lexapro Generalized weakness [...] pain 01/24/2012 01/17/2017 Genetic Sleep Disorder Research Other*[id number] 05/13/2011 04/07/2016 Obstructive sleep apnea 01/18/2011 12/27/19 [...] (Prevnar) 05/02/2019 Pneumococcal Conjugate Vacci ne, 20-valent ([id number]) 10/21/2022 Pneumococcal Polysaccharide PPV23 (Pneumovax) 06/01/2010 Seasonal [...] Notes * Jonas Atwood V, [facility] - 03/21/2023 1:07 PM EDT Images from the original note were not included. Medication Therapy Disease Management Clinic - Diabetes Management Progress Note Shaina Bustos, identified by name and date of , is a 67 year old female being seen for diabetesmanagement/education. Patient presents for return diabetic visit. DIABETES: Current diabetic medications: INCREASE:Novolog, Inject 35 units before breakfast, 40units before lunch, [id number] beforesupper DECREASE:Lantus [id number] daily Metformin ER 500mg daily Trulicity 4.5mg SQ weekly Medication Injection Site: Abdomen Lifestyle: Diet: unchanged History of Treatment Barriers: Lifestyle: wheelchair bound Therapy considerations: None Medication: Metformin IR:GM? Glucose Review/SMBG: Readings obtained from patient device Hypoglycemia: Does your blood sugar go below 70 mg/dL? Yes, per sensor before breakfast. will hold breakfast Novolog if her BG is <70. Hyperglycemia symptoms present: none Recent Labs Units 12/06/22 1408 05/19/22 1449 01/24/22 0834 HEMOGLOBIN A1C - [facility] % 6.0* 7.4* 6.9* Recent Labs Units 02/01/23 1350 12/06/22 1408 [...] goal BP Readings from Last 3 Encounters: 03/09/23 112/64 02/22/23 104/68 02/16/23 124/64 Blood pressure at goal: yes HYPERLIPIDEMIA: Patient [...] A1c goal of less than 8.0% ([facility]) E11.9 2. DM type 2 with diabetic peripheral neuropathy ([facility]) E11.42 BG Readings - Blood sugars uncontrolled. Rising after lunch and staying elevated overnight Medications - Reviewed current regimen, patient is adherent to regimen. Diet, Exercise, Lifestyle - No significant lifestyle changes since last visit. Discussed with patient today. Patient is agreeable to wear Dexcom CGM. Patient aware to contact clinic if any hypoglycemia before next visit. MEDICATION CHANGES: yes, see below; preferred pharmacy: [facility] Medications: INCREASE:Novolog, Inject 35 units before breakfast, 45units before lunch, [id number] beforesupper DECREASE:Lantus [id number] daily Metformin ER 500mg daily Trulicity 4.5mg SQ weekly HEALTH MAINTENANCE INTERVENTIONS: Labs: Ordered & Scheduled: HgA1c and Vitamin B12 Immunizations:[id number] shingles and covid booster Foot Exam:needs completed Eye Exam:needs completed Annual Wellness Visit:N/A FOLLOW UP: Return to clinic in 3 weeks 04/11/2023 Jonas Atwood RPh, CDE Clinical Pharmacist - Brain Picker Medication Therapy Management [facility] 03/21/2023, 1:07 PM documented in this encounter Plan of Treatment Upcoming Encounters Date Type Specialty Care Team Description 04/11/2023 Office Visit Pharmacy Pharmacist1, [facility] [address] [facility] [place] [address] 04/13/2023 Home Visit [facility] July Poe RN [address] [place] [id number] 04/19/2023 Office Visit Sleep Disorders Lanette Fields CRNP [address] [address] 05/19/2023 Telemedicine [facility] Joselin Dawson CRNP [address] [place] [address] Monika Zamora, [facility] [address] [place] [address] 05/22/2023 Office Visit Gastroenterology Lyssa Stout CRNP [address] [place] [address] 06/27/2023 Office Visit Hematology Oncology Tono Sanchez MD 200 [facility] [place] [address] 07/31/2023 Office Visit Family Medicine Vanita Dunn MD [address] [place] [address] 07/31/2023 Laboratory Laboratory [facility] [address] [place] [address] 10/04/2023 Office Visit Gynecology Obstetrics Renetta Martinez MD [address] [place] [address] Scheduled Procedures Name Priority Associated Diagnoses Date/Ti [...] this encounter Medical Devices Implanted Type Area Scrum Project Manager Device Identifier Shelf Expiration Date Model / Serial / Lot Microtech Sure Clip Implanted:Qty: 2 on 06/03/2020 by Janis Hatch DO at OR [facility] Clip N/A: Colon 04/21/2022 [facility]-F-26-2 35-C-R / / [id number] documented as of this encounter Visit Diagnoses Diagnosis Type 2 diabetes mellitus with hemoglobin A1c goal of less than 8.0% (HCC)- Primary DM type 2 with diabetic peripheral neuropathy (HCC) Type II or unspecified type diabetes mellitus with neurological manifestations, not stated as uncontrolled documented in this encounter Advance Directives Documents on File Type Date Recorded Patient Barrel Roller Expl anation Advance Directives and Living Will 04/29/2021 ADVANCE DIRECTIVE / LIVING WILL LIVING WILL AND HEALTH CARE POA Power of Cutter Helper 04/29/2021 [facility]OWER [facility] A [facility] [...] the patient have Health Care Power of Cutter Helper? No Code Status History Code Status Date Activated Date Inactivated Comments Full Code 12/27/2021 2:50 PM 12/27/2021 8:02 PM This order reflects the patients wishes and were consensually agreed upon. Question Answer Comments Discussion of Advance Directives occurred with: Not Discussed Does the patient have a Living Will? No Does the patient have Health Care Power of Cutter Helper? No Full Code 03/31/2021 8:57 PM 04/03/2021 [...] Agents on File Name Relationship Healthcare Agent [facility] p Communication Syed Bustos Spouse Emergency Contact Care Teams Religion Professor Relationship Specialty Start Date End Date Vanita Dunn MD [address] [place] [address] PCP - General Family Medicine 03/16/21 documented as of this encounter
--- OUTSIDE RECORDS SUMMARY | 2023-05-10 16:41 | External Medical Summary | Summary of Care ---
Author Name Unknown Organization [facility] Address [address] [facility] [place] [address] Phone [phone] Care Team Providers Care Liquor Establishment Manager Name Role Phone Vanita Dunn MD Primary Care Provid er Reason for Visit * Reason Onset Date Comments No Show 03/16/2023 Venofer Encounter Details Date Type Department Care Team Description 03/16/2023 Telephone Hematology/Oncology Treatment, [place] [address] [place] [id number] Tono Sanchez MD [address] [place] [address] No Show (Venofer) Allergies Active Allergy Reactions Severity Noted Date Comments Adhesive Tape Itching 04/29/2020 Penicillins Rash 02/12/2008 Penicillin G 07/20/2018 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 documented as of this encounter (statuses as of 03/16/2023) Medications Medication Sig Dispensed Refills Start Date End Date Status nystatin (NYSTOP) 038174 UNIT/GM powder Apply topically to affected area 3 times a day. 60 g 1 10/16/2019 Active Dexcom G6 Bobbin Disker Device Use as directed. To test blood sugars 4 times a day Dx E11.9 1 Each 0 09/14/2020 Active Dexcom G6 Transmitter Use as directed. To test blood sugars 4 times a day. Change every 90 days. Dx E11.9 1 Each 3 09/14/2020 Active OneTouch Verio In Vitro Strip (Glucose Blood) TESTING once daily 100 Strip 3 10/29/2020 Active Mindset StudioTouch Delica Plus [id number] TESTING once daily 100 Each 3 10/29/2020 [...] as of this encounter (statuses as of 03/16/2023) Active Problems Problem Noted Date Thrombocytopenia 01/17/2023 [...] as of this encounter (statuses as of 03/16/2023) Resolved Problems Problem Noted Date Resolved Date [...] current situation. 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 if a adjunct faculty for medical terminology plan is made -continue lexapro Generalized weakness [...] pain 01/24/2012 01/17/2017 Genetic Sleep Disorder Research Other*[id number] 05/13/2011 04/07/2016 Obstructive sleep apnea 01/18/2011 12/27/19 [...] as of this encounter (statuses as of 03/16/2023) Immunizations Name Administration Dates Next Due COVID-19 mRNA, LNP-s, No Pre serve, 2-Dose Series (Moderna) 01/05/2022,07/26/2021,12/21/2020,11/09 HEP A - Hepatitis A (Adult > 18 yrs) 09/24/2018, 03/26/2018 Hepatitis B, 20+ yrs 09/24/2018,04/23/2018,03/26 Pneumococcal Conjugate Vacc, 13 Valent (Prevnar) 05/02/2019 Pneumococcal Conjugate Vacci ne, 20-valent ([id number]) 10/21/2022 Pneumococcal Polysaccharide PPV23 (Pneumovax) 06/01/2010 Seasonal [...] encounter Miscellaneous Notes * Telephone Encounter - Renetta Schuler RN [...] Encounters Date Type Specialty Care Team Description 03/30/2023 Pharmacy Pharmacy Pharmacist1, [facility] [address] [facility] [place] [address] 04/13/2023 Home Visit [facility] July Poe RN [address] [place] [address] 04/19/2023 Office Visit Sleep Disorders Lanette Fields CRNP [address] [place] [address] 05/19/2023 Telemedicine [facility] Joselin Dawson CRNP [address] [place] [address] Monika Zamora, [address] [place] [address] 05/22/2023 Office Visit Gastroenterology Lyssa Stout CRNP [address] [place] [address] 06/27/2023 Office Visit Hematology Oncology Tono Sanchez MD 200 [place] [address] 07/31/2023 Office Visit Family Medicine Vanita Dunn MD [address] [place] [address] 07/31/2023 Laboratory Laboratory [facility] [address] [place] [address] 10/04/2023 Office Visit Gynecology Obstetrics Renetta Martinez MD [address] [place] [address] Scheduled Procedures Name Priority Associated Diagnoses Date/Ti [...] Additional history exists Yearly B-12 02/23/2024 02/22/2023, 01/2022, 07/06/2021, Additional history [...] this encounter Medical Devices Implanted Type Area Flight Readiness Technician Device Identifier Shelf Expiration Date Model / Serial / Lot Microtech Sure Clip Implanted:Qty: 2 on 06/03/2020 by Janis Hatch DO at OR [facility] Clip N/A: Colon 04/21/2022 [facility]-F-26-2 35-C-R / / [id number] documented as of this encounter Advance Directives Documents on File Type Date Recorded 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 No Code Status History Code Status Date Activated Date Inactivated Comments Full Code 12/27/2021 2:50 PM 12/27/2021 8:02 PM This order reflects the patients wishes and were consensually agreed upon. Question Answer Comments Discussion of Advance Directives occurred with: Not Discussed Does the patient have a Living Will? No Does the patient have Health Care Power of Director Of Parks And Recreation? No Full Code 03/31/2021 8:57 PM 04/03/2021 [...] Syed Bustos Spouse Emergency Contact Care Teams Liquor Establishment Manager Relationship Specialty Start Date End Date Vanita Dunn MD [address], [place] [phone] PCP - General Family Medicine 03/16/21 documented as of this encounter
--- OUTSIDE RECORDS SUMMARY | 2023-05-10 16:41 | External Medical Summary | Summary of Care ---
Author Name Unknown Organization [facility] Address [address] [facility] [place] [address] Phone [phone] Care Team Providers Care Cilnical Scientist Name Role Phone Vanita Dunn MD Primary Care Provid er Reason for Visit * Reason Onset Date Comments Health Maintenance 03/13/2023 Encounter Details Date Type Department Care Team Description 03/13/2023 Telephone [facility] [address] [place] [address] Vanita Dunn MD [address] [place] [address] Health Maintenance Allergies Active Allergy Reactions Severity Noted Date Comments Adhesive Tape Itching 04/29/2020 Penicillins Rash 02/12/2008 Penicillin G 07/20/2018 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 documented as of this encounter (statuses as of 03/13/2023) Medications Medication Sig Dispensed Refills Start Date End Date Status nystatin (NYSTOP) 047301 UNIT/GM powder Apply topically to affected area 3 times a day. 60 g 1 10/16/2019 Active Dexcom G6 Consulting Software Engineer Device Use as directed. To test blood sugars 4 times a day Dx E11.9 1 Each 0 09/14/2020 Active Dexcom G6 Transmitter Use as directed. To test blood sugars 4 times a day. Change every 90 days. Dx E11.9 1 Each 3 09/14/2020 Active OneTouch Verio In Vitro Strip (Glucose Blood) TESTING once daily 100 Strip 3 10/29/2020 Active OneTouch Delica Plus [id number] TESTING once daily 100 Each 3 10/29/2020 [...] 7.0% ([facility]) inject 4.5mg (1 pen) under the skin [...] hemoglobin A1c goal of less than 8.0% ([facility]) 35 Units at breakfast, 39 Units before [...] as of this encounter (statuses as of 03/13/2023) Active Problems Problem Noted Date Thrombocytopenia 01/17/2023 [...] as of this encounter (statuses as of 03/13/2023) Resolved Problems Problem Noted Date Resolved Date [...] pain 01/24/2012 01/17/2017 Genetic Sleep Disorder Research Other*[id number] 05/13/2011 04/07/2016 Obstructive sleep apnea 01/18/2011 12/27/19 [...] as of this encounter (statuses as of 03/13/2023) Immunizations Name Administration Dates Next Due COVID-19 mRNA, LNP-s, No Pre serve, 2-Dose Series (Moderna) 01/05/2022,07/26/2021,12/21/2020,11/09 HEP A - Hepatitis A (Adult > 18 yrs) 09/24/2018, 03/26/2018 Hepatitis B, 20+ yrs 09/24/2018,04/23/2018,03/26 Pneumococcal Conjugate Vacc, 13 Valent (Prevnar) 05/02/2019 Pneumococcal Conjugate Vacci ne, 20-valent ([id number]) 10/21/2022 Pneumococcal Polysaccharide PPV23 (Pneumovax) 06/01/2010 Seasonal [...] encounter Miscellaneous Notes * Telephone Encounter - Bebe Roque LPN - 03/13/2023 8:17 AM EDT Care Gaps Comprehensive Care Outreach Last Office/Telemedicine Visit: 01/24/2023 (in office), 09/17/2021 (telemedicine) Next Office Visit: 07/31/2023 Hemoglobin AIC Results: Lab Results Component Value Date/Time HEMOGLOBIN A1C - [facility] 6.0 (H) 12/06/2022 02:08 PM HEMOGLOBIN A1C - [facility] 7.4 (H) 05/19/2022 02:49 PM HEMOGLOBIN A1C - [facility] 6.9 (H) 01/24/2022 08:34 AM HEMOGLOBIN A1C - [facility] 9.9 (H) 07/06/2020 05:24 AM HEMOGLOBIN A1C - [facility] 11.0 (H) 05/26/2020 04:44 AM HEMOGLOBIN A1C - [facility] 9.9 (H) 04/28/2020 04:37 PM Reviewed Health Maintenance below: Health Maintenance Topic Date Due DXA Scan Never done DIABETES-EYE EXAM 06/12/2019 Zoster Vaccines (3 of 3) 06/23/2020 Depression Screening, Annual for Pts 12 and Over 07/27/2021 COVID-19 Vaccine (5 - Moderna series) 03/02/2022 DIABETES-FOOT EXAM 04/05/2022 Albumin/Creatinine Ratio 03/30/2023 Influenza Vaccine (FLU shot) (1) 05/12/2023 HbA1c 06/08/2023 TSH 07/06/2023 dexa Eye requested she saw [facility] Labs/urine fall ordered and scheduled foot Care Gap Outreach Action Taken: Spoke to patient documented in this encounter Plan of Treatment Upcoming Encounters Date Type Specialty Care Team Description 03/16/2023 Hem/Onc Treatment Hematology Oncology [place], Chair 3 Hem Onc [address]en[address] [place] [address] 03/16/2023 Office Visit Pharmacy Pharmacist1, [facility] [address] [place] [address] 04/13/2023 Home Visit [facility] July Poe RN [address] [place] [address] 04/19/2023 Office Visit Sleep Disorders Lanette Fields CRNP [address] [place] [address] 05/19/2023 Telemedicine [facility] Joselin Dawson CRNP [address] [place] [address] Monika Zamora, [facility] [address] [place] [address] 05/22/2023 Office Visit Gastroenterology Lyssa Stout CRNP [address] [place] [address] 06/27/2023 Office Visit Hematology Oncology Tono Sanchez MD [address] [place] [address] 07/31/2023 Office Visit Family Medicine Vanita Dunn MD [address] [place] [address] 07/31/2023 Laboratory Laboratory [place], [facility] [address] [place] [address] 10/04/2023 Office Visit Gynecology Obstetrics Renetta Martinez MD [address] [place] [address] Scheduled Orders Name Type Priority Associated Diagnoses Orde r Schedule HEMOGLOBIN A1C Lab Routine Type 2 diabetes mellitus with hemoglobin A1c goal of less than 8.0% (HCC) Expected: 07/12/2023, Expires: 03/13/2024 TSH WITH FREE T4 IF INDICATED Lab Routine Screening for thyroid disorder Expected: 07/12/2023, Expires: 03/13/2024 Scheduled Procedures Name Priority Associated Diagnoses Date/Ti [...] this encounter Medical Devices Implanted Type Area Antique Clock Repairer Device Identifier Shelf Expiration Date Model / Serial / Lot Microtech Sure Clip Implanted:Qty: 2 on 06/03/2020 by Janis Hatch DO at OR [facility] Clip N/A: Colon 04/21/2022 [facility]-F-26-2 35-C-R / / [id number] documented as of this encounter Visit Diagnoses Diagnosis Type 2 diabetes mellitus with hemoglobin A1c goal of less than 8.0% ([facility])- Primary Diabetes mellitus screening Screening for diabetes mellitus Screening for thyroid disorder documented in this encounter Advance Directives Documents on File Type Date Recorded 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 No Code Status History Code Status Date Activated Date Inactivated Comments Full Code 12/27/2021 2:50 PM 12/27/2021 8:02 PM This order reflects the patients wishes and were consensually agreed upon. Question Answer Comments Discussion of Advance Directives occurred with: Not Discussed Does the patient have a Living Will? No Does the patient have Health Care Power of Web Marketing Analyst? No Full Code 03/31/2021 8:57 PM 04/03/2021 [...] Syed Bustos Spouse Emergency Contact Care Teams Cilnical Scientist Relationship Specialty Start Date End Date Vanita Dunn MD [address] [place] [address] PCP - General Family Medicine 03/16/21 documented as of this encounter
--- OUTSIDE RECORDS SUMMARY | 2023-05-10 16:41 | External Medical Summary | Summary of Care ---
Author Name Unknown Organization [facility] Address [address] [facility] [place] [address] Phone [phone] Care Team Providers Care Quality Engineer Name Role Phone Vanita Dunn MD Primary Care Provid er Reason for Visit * Reason Onset Date Comments [facility]: Maintenance 03/09/2023 Encounter Details Date Type Department Care Team Description 03/09/2023 Telephone [facility], [facility] [address] [facility] [place] [address] July Poe, RN [address] [facility] [place] [address] [facility]: Maintenance Allergies Active Allergy Reactions Severity Noted Date Comments Adhesive Tape Itching 04/29/2020 Penicillins Rash 02/12/2008 Penicillin G 07/20/2018 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 documented as of this encounter (statuses as of 03/10/2023) Medications Medication Sig Dispensed Refills Start Date End Date Status nystatin (NYSTOP) 714094 UNIT/GM powder Apply topically to affected area 3 times a day. 60 g 1 10/16/2019 Active Dexcom G6 Looseleaf Binder Coverer Device Use as directed. To test blood sugars 4 times a day Dx E11.9 1 Each 0 09/14/2020 Active Dexcom G6 Transmitter Use as directed. To test blood sugars 4 times a day. Change every 90 days. Dx E11.9 1 Each 3 09/14/2020 Active OneTouch Verio In Vitro Strip (Glucose Blood) TESTING once daily 100 Strip 3 10/29/2020 Active OneTouch Delica Plus [id number] TESTING once daily 100 Each 3 10/29/2020 [...] A1c goal of less than 7.0% ([facility]) inject 4.5mg (1 pen) under the skin [...] A1c goal of less than 8.0% ([facility]) 35 Units at breakfast, 39 Units before [...] s:Recurrent major depressive disorder, in partial remission ([facility]) TAKE 1 TABLET BY MOUTH DAILY 90 [...] as of this encounter (statuses as of 03/10/2023) Active Problems Problem Noted Date Thrombocytopenia 01/17/2023 [...] as of this encounter (statuses as of 03/10/2023) Resolved Problems Problem Noted Date Resolved Date [...] situation. 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 -continue lexapro Generalized weakness [...] pain 01/24/2012 01/17/2017 Genetic Sleep Disorder Research Other*[id number] 05/13/2011 04/07/2016 Obstructive sleep apnea 01/18/2011 12/27/19 [...] as of this encounter (statuses as of 03/10/2023) Immunizations Name Administration Dates Next Due COVID-19 mRNA, LNP-s, No Pre serve, 2-Dose Series (Moderna) 01/05/2022,07/26/2021,12/21/2020,11/09 HEP A - Hepatitis A (Adult > 18 yrs) 09/24/2018, 03/26/2018 Hepatitis B, 20+ yrs 09/24/2018,04/23/2018,03/26 Pneumococcal Conjugate Vacc, 13 Valent (Prevnar) 05/02/2019 Pneumococcal Conjugate Vacci ne, 20-valent ([id number]) 10/21/2022 Pneumococcal Polysaccharide PPV23 (Pneumovax) 06/01/2010 Seasonal [...] encounter Miscellaneous Notes * Telephone Encounter - Vanita Dunn MD - 03/10/2023 7:29 AM EDT Order placed Please send after March 11. * Telephone Encounter - July Poe RN - 03/09/2023 8:05 AM EDT Good morning, Pt has had purewick catheter in the past and it was covered by [employer] insurance. She then switched to [employer] and it was not covered. Pt is switching back to [employer] and will go into effect on 03/11/23. She will need a new order for the purewick catheter sent to [facility]. I see there is an order in from January but it will need resent after [employer] goes into effect so that it can be covered. Thank you! documented in this encounter Plan of Treatment Upcoming Encounters Date Type Specialty Care Team Description 03/16/2023 Hem/Onc Treatment Hematology Oncology [place], Chair 3 Hem Onc Scenery [address] [place] [address] 03/16/2023 Office Visit Pharmacy Pharmacist1, [facility] Sp [address] [place] [address] 04/13/2023 Home Visit [facility] July Poe RN [address] [place] [address] 04/19/2023 Office Visit Sleep Disorders Lanette Fields CRNP [address] [place] [address] 05/19/2023 Telemedicine [facility] Joselin Dawson CRNP [address] [place] [address] Monika Zamora, Community [facility] [address] [place] [address] 05/22/2023 Office Visit Gastroenterology Lyssa Stout CRNP [address] [place] [address] 06/27/2023 Office Visit Hematology Oncology Tono Sanchez MD 200 [place] [address] 07/31/2023 Office Visit Family Medicine Vanita Dunn MD [address] [place] [address] 10/04/2023 Office Visit Gynecology Obstetrics Renetta Martinez MD [address] [place] [address] Scheduled Procedures Name Priority Associated Diagnoses Date/Ti [...] 03/30/2023 022, 01/11/2019, 02/03/2017, Additional history exists HbA1c 06/08/2023 12/06/2022, 090 04/2022, 01/24/2022, Additional history exists TSH 07/06/2023 07/06/2022, 090 04/2022, 06/10/2021, Additional history exists Mammogram 12/10/2023 12/09/2022, 08/13, 09/08/2020, Additional history exists GFR 02/02/2024 02/01/2023, 11/10, 08/30/2022, Additional history exists Yearly B-12 02/23/2024 02/22/2023, 01/0 01/2022, 07/06/2021, Additional history exists COLONOSCOPY-EVERY 5 YRS AGES 18-100 06/03/2025 06/03/2020, 06/03/2020, 03/17/2020, Additional history exists DTaP,Tdap,and Td Vaccines (3 - Td or Tdap) 05/01/2027 05/01/2017, 05/26/2008 Lipid Panel 02/23/2028 02/22/2023, 01/0 12/2021, 02/21/2020, Additional history exists Pap Smear Discontinued 10/10/2016, 06/12, 04/16/2013, Additional history exists Hepatitis B Completed 09/24/2018, 04/11, 03/26/2018 Influenza Vaccine (FLU shot) Completed 07/28/2022, 06/10/2021, 06/01/2020, Additional history exists Pneumococcal Vaccine: 65+ Years Completed 10/21/2022, 05/02/2019, 06/01/2010 GARDASIL-HPV IMMUNIZATION SERIES Aged Out No longer eligible based on patient's age to complete this topic MENINGOCOCCAL (MENACTRA/MENVEO) Aged Out No longer eligible based on patient's age to complete this topic documented as of this encounter Medical Devices Implanted Type Area Paving Foreman Device Identifier Shelf Expiration Date Model / Serial / Lot Microtech Sure Clip Implanted:Qty: 2 on 06/03/2020 by Janis Hatch, DO at OR [facility] Clip N/A: Colon 04/21/2022 [facility]-F-26-2 35-C-R / / [id number] documented as of this encounter Visit Diagnoses Diagnosis 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 No Code Status History Code Status Date Activated Date Inactivated Comments Full Code 12/27/2021 2:50 PM 12/27/2021 8:02 PM This order reflects the patients wishes and were consensually agreed upon. Question Answer Comments Discussion of Advance Directives occurred with: Not Discussed Does the patient have a Living Will? No Does the patient have Health Care Power of Manager Community Development? No Full Code 03/31/2021 8:57 PM 04/03/2021 [...] File Name Relationship [facility] Syed Bustos Spouse Emergency Contact Care Teams Quality Engineer Relationship Specialty Start Date End Date Vanita Dunn MD [address], [place] [phone] PCP - General Family Medicine 03/16/21 documented as of this encounter
--- OUTSIDE RECORDS SUMMARY | 2023-05-10 16:41 | External Medical Summary | Summary of Care ---
Author Name Unknown Organization [facility] Address [address] [facility] [place] [address] Phone [phone] Care Team Providers Care Special Agent In Charge Name Role Phone Vanita Dunn MD Primary Care Provid er Encounter Details Date Type Department Care Team Description 03/15/2023 Orders Only Hematology/Oncology Treatment, [place] [address] [place] [address] Chaparrita Cifuentes MD [address] [place] [address] Allergies Active Allergy Reactions Severity Noted Date Comments Adhesive Tape Itching 04/29/2020 Penicillins Rash 02/12/2008 Penicillin G 07/20/2018 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 documented as of this encounter (statuses as of 03/15/2023) Medications Medication Sig Dispensed Refills Start Date End Date Status nystatin (NYSTOP) 009038 UNIT/GM powder Apply topically to affected area 3 times a day. 60 g 1 10/16/2019 Active Dexcom G6 Manager Material Device Use as directed. To test blood sugars 4 times a day Dx E11.9 1 Each 0 09/14/2020 Active Dexcom G6 Transmitter Use as directed. To test blood sugars 4 times a day. Change every 90 days. 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 MAY TAKE AN EXTRA DOSE IN THE MORNING AND MIDDAY IF NEEDED FOR PAIN. MAX DAILY AMOUNT: 6 CAPSULES 360 Capsule 1 01/27/2023 Active Escitalopram Oxalate 20 MG Oral Tablet (Lexapro)Indication s:Recurrent major depressive disorder, in partial remission ([facility]) TAKE 1 TABLET BY MOUTH DAILY 90 [...] as of this encounter (statuses as of 03/15/2023) Active Problems Problem Noted Date Thrombocytopenia 01/17/2023 [...] as of this encounter (statuses as of 03/15/2023) Resolved Problems Problem Noted Date Resolved Date [...] current situation. 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 if a correction plan is made -continue lexapro Generalized weakness [...] 04/23/2015 03/28/2017 Candidal vulvovaginitis 02/12/2015 06/07/20 16 TAHD (obstructive sleep apnea) 02/09/2015 Leg weakness, bilateral [...] pain 01/24/2012 01/17/2017 Genetic Sleep Disorder Research Other*[id number] 05/13/2011 04/07/2016 Obstructive sleep apnea 01/18/2011 12/27/19 [...] as of this encounter (statuses as of 03/15/2023) Immunizations Name Administration Dates Next Due COVID-19 mRNA, LNP-s, No Pre serve, 2-Dose Series (Moderna) 01/05/2022,07/26/2021,12/21/2020,11/09 HEP A - Hepatitis A (Adult > 18 yrs) 09/24/2018, 03/26/2018 Hepatitis B, 20+ yrs 09/24/2018,04/23/2018,03/26 Pneumococcal Conjugate Vacc, 13 Valent (Prevnar) 05/02/2019 Pneumococcal Conjugate Vacci ne, 20-valent ([id number]) 10/21/2022 Pneumococcal Polysaccharide PPV23 (Pneumovax) 06/01/2010 Seasonal [...] [place], Chair 3 Hem Onc Scenery [address] [facility] [place] [address] 03/16/2023 Office Visit Pharmacy Pharmacist1, [facility] Sp [address] [facility] [place] [address] 04/13/2023 Home Visit [facility] July Poe RN [address] [place] [address] 04/19/2023 Office Visit Sleep Disorders Lanette Fields CRNP [address] [place] [address] 05/19/2023 Telemedicine [facility] Joselin Dawson CRNP [address] [place] [address] Monika Zamora, Community [facility] Vice President Of Software Development [address] [place] [address] [place] [address] 05/22/2023 Office Visit Gastroenterology Lyssa Stout CRNP [address] [place] [address] 06/27/2023 Office Visit Hematology Oncology Tono Sanchez MD [address] [facility] [place] [address] 07/31/2023 Office Visit Family Medicine Vanita Dunn MD [address] [place] [address] 07/31/2023 Laboratory Laboratory [facility] [address] [place] [address] 10/04/2023 Office Visit Gynecology Obstetrics Renetta Martinez MD [address] [place] [address] Scheduled Procedures Name Priority Associated Diagnoses Date/Ti [...] this encounter Medical Devices Implanted Type Area District Administrative Assistant Device Identifier Shelf Expiration Date Model / Serial / Lot Microtech Sure Clip Implanted:Qty: 2 on 06/03/2020 by Janis Hatch DO at OR [facility] Clip N/A: Colon 04/21/2022 [facility]-F-26-2 35-C-R / / [id number] documented as of this encounter Advance Directives Documents on File Type Date Recorded 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 No Code Status History Code Status Date Activated Date Inactivated Comments Full Code 12/27/2021 2:50 PM 12/27/2021 8:02 PM This order reflects the patients wishes and were consensually agreed upon. Question Answer Comments Discussion of Advance Directives occurred with: Not Discussed Does the patient have a Living Will? No Does the patient have Health Care Power of Police Liaison Officer? No Full Code 03/31/2021 8:57 PM 04/03/2021 [...] Agents on File Name Relationship Healthcare Agent [facility] p Communication Syed Bustos Spouse Emergency Contact Care Teams Special Agent In Charge Relationship Specialty Start Date End Date Vanita Dunn MD [address] [place] [address] PCP - General Family Medicine 03/16/21 documented as of this encounter
--- OUTSIDE RECORDS SUMMARY | 2023-05-10 16:41 | External Medical Summary | Summary of Care ---
Author Name Unknown Organization [facility] Address [address] [facility] [place] [address] Phone [phone] Care Team Providers Care Drag Seiner Name Role Phone Vanita Dunn MD Primary Care Provid er Reason for Visit * Reason Comments [facility]: Maintenance Encounter Details Date Type Department Care Team Description 03/09/2023 Home Visit [facility], [facility] [address] [place] [address] July Poe, RN [address] [facility] [place] [address] Allergies Active Allergy Reactions Severity Noted Date Comments Adhesive Tape Itching 04/29/2020 Penicillins Rash 02/12/2008 Penicillin G 07/20/2018 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 documented as of this encounter (statuses as of 03/09/2023) Medications Medication Sig Dispensed Refills Start Date End Date Status nystatin (NYSTOP) 171084 UNIT/GM powder Apply topically to affected area 3 times a day. 60 g 1 10/16/2019 Active Dexcom G6 Bus Cleaner Device Use as directed. To test blood sugars 4 times a day Dx E11.9 1 Each 0 09/14/2020 Active Dexcom G6 Transmitter Use as directed. To test blood sugars 4 times a day. Change every 90 days. Dx E11.9 1 Each 3 09/14/2020 Active OneTouch Verio In Vitro Strip (Glucose Blood) TESTING once daily 100 Strip 3 10/29/2020 Active OneTouch Delica Plus [id number] TESTING once daily 100 Each 3 10/29/2020 [...] s:Recurrent major depressive disorder, in partial remission ([facility]) TAKE 1 TABLET BY MOUTH [...] as of this encounter (statuses as of 03/09/2023) Active Problems Problem Noted Date Thrombocytopenia 01/17/2023 [...] Not on a beta-jose carlos or an Zya. Could be due to lower BP. Will [...] as of this encounter (statuses as of 03/09/2023) Resolved Problems Problem Noted Date Resolved Date [...] tendinitis, right leg 04/08/2019 0 09/13/2021 senior living resident 04/08/2019 05/02/2019 Ambulatory dysfunction 04/04/2019 2 Fall 04/04/2019 05/05/2020 Sprain of right ankle 04/04/2019 05/05/2020 Recurrent major depressive disorder, in partial remission 04/04/2019 11/08/2022 Overview: More recent Dx noted on PL Last Assessment & Plan: Seems very depressed about current situation. 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 if a lens coater plan is made -continue lexapro Generalized weakness [...] pain 01/24/2012 01/17/2017 Genetic Sleep Disorder Research Other*[id number] 05/13/2011 04/07/2016 Obstructive sleep apnea 01/18/2011 12/27/19 [...] apnea 06/30/2009 Obesity, BMI not known 06/04/2009 03/30/201 0 Overview: Per Obesity Taxonomy Other lymphedema [...] as of this encounter (statuses as of 03/09/2023) Immunizations Name Administration Dates Next Due COVID-19 mRNA, LNP-s, No Pre serve, 2-Dose Series (Moderna) 01/05/2022,07/26/2021,12/21/2020,11/09 HEP A - Hepatitis A (Adult > 18 yrs) 09/24/2018, 03/26/2018 Hepatitis B, 20+ yrs 09/24/2018,04/23/2018,03/26 Pneumococcal Conjugate Vacc, 13 Valent (Prevnar) 05/02/2019 Pneumococcal Conjugate Vacci ne, 20-valent ([id number]) 10/21/2022 Pneumococcal Polysaccharide PPV23 (Pneumovax) 06/01/2010 Seasonal [...] Sign Reading Time Taken Comments Blood Pressure 112/64 03/09/2023 9:26 AM EDT Pulse 62 03/09/2023 9:26 AM EDT Temperature 36.7 C (98 F) 03/09/2023 9:26 AM EDT Respiratory Rate 18 03/09/2023 9:26 AM EDT Oxygen Saturation 95% 03/09/2023 9:26 AM EDT Inhaled Oxygen Concentration - - [...] Progress Notes * July Poe RN - 03/09/2023 8:00 AM EDT [employer] Visit Date: 03/09/2023 Time: 9:00 AM Name: Shaina Bustos : 1955 Current Concerns: Pt seen for return RNCM visit Requesting purewick catheter system be reordered - had in the past but had switched insurance and it wasn't covered. Now has [facility] insurance back and will be covered TE sent to PCP to get new order sent after 03/11 reports pt was on an abx for 5 days for bleeding"down below", meaning vaginal bleeding or possible hematuria He reports there has been little to no bleeding the past few days Pt and deny any concerns at this time Continues to get pill packs from [facility] Blood sugar 211 this am Has dexcom sensor and MTM for DM management Physical Exam: BP 112/64 | Pulse 62 | Temp 36.7 C (98 F) | Resp 18 | SpO2 95% Pain 0 Physical Exam Constitutional: General: She is not in acute distress. Appearance: She is obese. Cardiovascular: Rate and Rhythm: Normal rate and regular rhythm. Pulses: Normal pulses. Heart sounds: Normal heart sounds. Pulmonary: Effort: Pulmonary effort is normal. Breath sounds: Normal breath sounds. Abdominal: General: Bowel sounds are normal. Palpations: Abdomen is soft. Musculoskeletal: Right lower leg: Edema (+1) present. Left lower leg: Edema (+1) present. Skin: General: Skin is warm and dry. Neurological: Mental Status: She is alert and oriented to person, place, and time. Problems/Symptoms: Review of Systems Constitutional: Negative. HENT: Negative. Eyes: Negative. Respiratory: Positive for cough (chronic - "not as much lately") and shortness of breath (at baseline). Cardiovascular: Positive for leg swelling. Gastrointestinal: Negative. Endocrine: Negative. Genitourinary: Positive for vaginal bleeding (fluctuates ). Musculoskeletal: Positive for arthralgias and gait problem (non-ambulatory). Skin: Negative. Psychiatric/Behavioral: Negative. Medication Reconciliation: (See medication list) Does patient take medications as ordered: Yes Patient Well Being: PHQ2/9: No questionnaires available. No change in living situation No falls [facility]-10 Completed this Visit: No. Routine visit and No falls since last visit Advanced Care Planning: Living Will. Patient's Goals of Care: 1. Remain in home 2. Have a manager maritime cg 3. Get out more Reinforcement/Education: DIABETES: [...] daily if no bm within 24 hrs TE sent to pcp for order for [employer] system Home Interventions Provided: Home Intervention: Other; Evaluation Reinforced current Plan of Care, including self-management and medication regimen Patient's 'Red Flags': 1. Increased cough with yellow/green sputum 2. Lethargy, sleeping more 3. No bm in 24 hrs Patient Needs to Remember: Call [facility] at with any new or worsening health concerns or problems, red flag symptoms. Referrals Needed: Other none Follow Up: Is there cellular connectivity/connectivity in the home? Yes Does the patient have internet in the home? No Patient encouraged to call the intake phone number for all urgent but not emergent issues. Is the patient new to [facility] within the last 30 days? No, Assess appropriateness for upcoming telehealth visits. Cancel telehealth visits & schedule home visit with care steam setter(s)as indicated. Provider is in agreement with Plan of Care: Yes Scheduled to follow up with patient in 6 weeks. July Poe RN 03/09/2023 9:00 AM documented in this encounter Plan of Treatment Upcoming Encounters Date Type Specialty Care Team Description 03/16/2023 Hem/Onc Treatment Hematology Oncology [place], Chair 3 Hem Onc Scenery [address] [place], [place] [address] 03/16/2023 Office Visit Pharmacy Pharmacist1, [facility] Sp [address] [place] [address] 04/13/2023 Home Visit [facility] July Poe RN [address] [place] [address] 04/19/2023 Office Visit Sleep Disorders Lanette Fields CRNP [address] [place] [address] 05/19/2023 Telemedicine [facility] Joselin Dawson CRNP [address] [place] [address] Monika Zamora, [address] [place] [address] 05/22/2023 Office Visit Gastroenterology Lyssa Stout CRNP [address] [place] [address] 06/27/2023 Office Visit Hematology Oncology Tono Sanchez MD 200 [place] [address] 07/31/2023 Office Visit Family Medicine Vanita Dunn MD [address] [place] [address] 10/04/2023 Office Visit Gynecology Obstetrics Renetta Martinez MD [address] [place] [address] Scheduled Procedures Name Priority Associated Diagnoses Date/Ti [...] 02/03/2017, Additional history exists HbA1c 06/08/2023 12/06/2022, 09/0 [...] this encounter Medical Devices Implanted Type Area Therapeutic Massage Technician Device Identifier Shelf Expiration Date Model / Serial / Lot Microtech Sure Clip Implanted:Qty: 2 on 06/03/2020 by Janis Hatch DO at OR [facility] Clip N/A: Colon 04/21/2022 [facility]-F-26-2 35-C-R / / [id number] documented as of this encounter Advance Directives Documents on File Type Date Recorded 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 No Code Status History Code Status Date Activated Date Inactivated Comments Full Code 12/27/2021 2:50 PM 12/27/2021 8:02 PM This order reflects the patients wishes and were consensually agreed upon. Question Answer Comments Discussion of Advance Directives occurred with: Not Discussed Does the patient have a Living Will? No Does the patient have Health Care Power of Tent Worker? No Full Code 03/31/2021 8:57 PM 04/03/2021 [...] Agents on File Name Relationship Healthcare Agent [facility] p Communication Syed Bustos Spouse Emergency Contact Care Teams Drag Seiner Relationship Specialty Start Date End Date Vanita Dunn MD [address] [place], [place] [phone] PCP - General Family Medicine 03/16/21 documented as of this encounter
--- OUTSIDE RECORDS SUMMARY | 2023-05-10 16:41 | External Medical Summary | Summary of Care ---
Author Name Unknown Organization [facility] Address [address] [facility] [place] [address] Phone [phone] Care Team Providers Care Welt Sewer Name Role Phone Vanita Dunn MD Primary Care Provid er Reason for Visit * Reason Onset Date Comments [facility]: Maintenance 03/09/2023 Encounter Details Date Type Department Care Team Description 03/09/2023 Telephone [facility], [facility] [address] [facility] [place] [address] Juyl Poe, RN [address] [facility] [place] [address] [facility]: Maintenance Allergies Active Allergy Reactions Severity Noted Date Comments Adhesive Tape Itching 04/29/2020 Penicillins Rash 02/12/2008 Penicillin G 07/20/2018 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 documented as of this encounter (statuses as of 03/10/2023) Medications Medication Sig Dispensed Refills Start Date End Date Status nystatin (NYSTOP) 188122 UNIT/GM powder Apply topically to affected area 3 times a day. 60 g 1 10/16/2019 Active Dexcom G6 Certified Personal Finance Counselor Device Use as directed. To test blood sugars 4 times a day Dx E11.9 1 Each 0 09/14/2020 Active Dexcom G6 Transmitter Use as directed. To test blood sugars 4 times a day. Change every 90 days. Dx E11.9 1 Each 3 09/14/2020 Active OneTouch Verio In Vitro Strip (Glucose Blood) TESTING once daily 100 Strip 3 10/29/2020 Active OneTouch Delica Plus [id number] TESTING once daily 100 Each 3 10/29/2020 [...] A1c goal of less than 7.0% ([facility]) inject 4.5mg (1 pen) under the [...] hemoglobin A1c goal of less than 8.0% ([facility]) 35 Units at breakfast, 39 Units [...] s:Recurrent major depressive disorder, in partial remission ([facility]) TAKE 1 TABLET BY MOUTH DAILY [...] situation. 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 if a terminal carman plan is made -continue lexapro Generalized weakness [...] pain 01/24/2012 01/17/2017 Genetic Sleep Disorder Research Other*[id number] 05/13/2011 04/07/2016 Obstructive sleep apnea 01/18/2011 12/27/19 [...] (Prevnar) 05/02/2019 Pneumococcal Conjugate Vacci ne, 20-valent ([id number]) 10/21/2022 Pneumococcal Polysaccharide PPV23 (Pneumovax) 06/01/2010 Seasonal [...] order for the purewick catheter sent to [facility]. I see there is an order in from January but it will need resent after GHP goes into effect so that it can be covered. Thank you! documented in this encounter Plan of Treatment Upcoming Encounters Date Type Specialty Care Team Description 03/16/2023 Hem/Onc Treatment Hematology Oncology [place], Chair 3 Hem Onc Scenery [address] [place] [id number] 03/16/2023 Office Visit Pharmacy Pharmacist1, [facility] [address] [place] [address] 04/13/2023 Home Visit [facility] July Poe RN [address] [place] [address] 04/19/2023 Office Visit Sleep Disorders Lanette Fields CRNP [address] [place] [address] 05/19/2023 Telemedicine [facility] Joselin Dawson CRNP [address] [place] [address] Monika Zamora, [facility] [address] [place] [address] 05/22/2023 Office Visit Gastroenterology Lyssa Stout CRNP [address] [place] [address] 06/27/2023 Office Visit Hematology Oncology Tono Sanchez MD [address] [place] [address] 07/31/2023 Office Visit Family Medicine Vanita Dunn MD [address] [place] [address] 10/04/2023 Office Visit Gynecology Obstetrics Renetta Martinez MD [address] [place] [address] Scheduled Procedures Name Priority Associated Diagnoses Date/Ti [...] this encounter Medical Devices Implanted Type Area Garnisher Device Identifier Shelf Expiration Date Model / Serial / Lot Microtech Sure Clip Implanted:Qty: 2 on 06/03/2020 by Janis Hatch, DO at OR [facility] Clip N/A: Colon 04/21/2022 [facility]-F-26-2 35-C-R / / [id number] documented as of this encounter Visit Diagnoses Diagnosis 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 No Code Status History Code Status Date Activated Date Inactivated Comments Full Code 12/27/2021 2:50 PM 12/27/2021 8:02 PM This order reflects the patients wishes and were consensually agreed upon. Question Answer Comments Discussion of Advance Directives occurred with: Not Discussed Does the patient have a Living Will? No Does the patient have Health Care Power of Furnace Hand? No Full Code 03/31/2021 8:57 PM 04/03/2021 [...] Agents on File Name [facility] Syed Bustos Spouse Emergency Contact Care Teams Welt Sewer Relationship Specialty Start Date End Date Vanita Dunn MD [address], [place] [id number] PCP - General Family Medicine 03/16/21 documented as of this encounter
--- OUTSIDE RECORDS SUMMARY | 2023-05-10 16:42 | External Medical Summary | Summary of Care ---
Author Name Unknown Organization [facility] Address [address] [facility] [place] [address] Phone [phone] Care Team Providers Care Loss Prevention Auditor Name Role Phone Vanita Dunn MD Primary Care Provid er Reason for Visit * Reason Comments Pulmonary Function Test PFT with broncho dilator Encounter Details Date Type Department Care Team Description 03/01/2023 PulmDiagnostic Pulmonary Function Lab, [facility] [address] [facility] [place] [place] [address] [place], [address] [place] [address] Moderate persistent asthma without complication* Allergies Active Allergy Reactions Severity Noted Date Comments Adhesive Tape Itching 04/29/2020 Penicillins Rash 02/12/2008 Penicillin G 07/20/2018 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 documented as of this encounter (statuses as of 03/01/2023) Medications Medication Sig Dispensed Refills Start Date End Date Status nystatin (NYSTOP) 075399 UNIT/GM powder Apply topically to affected area 3 times a day. 60 g 1 10/16/2019 Active Dexcom G6 Direct Marketing Intern Device Use as directed. To test blood sugars 4 times a day Dx E11.9 1 Each 0 09/14/2020 Active Dexcom G6 Transmitter Use as directed. To test blood sugars 4 times a day. Change every 90 days. Dx E11.9 1 Each 3 09/14/2020 Active OneTouch Verio In Vitro Strip (Glucose Blood) TESTING once daily 100 Strip 3 10/29/2020 Active OneTouch Delica Plus [id number] TESTING once daily 100 Each 3 10/29/2020 [...] hemoglobin A1c goal of less than 7.0% ([facility]) inject 4.5mg (1 pen) under the skin [...] hemoglobin A1c goal of less than 7.0% ([facility]) USE TO INJECT INSULIN FOUR TIMES [...] hemoglobin A1c goal of less than 8.0% ([facility]) 35 Units at breakfast, 39 Units before lunch, 45 Units before supper 120 mL 3 07/28/2022 Active Furosemide 20 MG Oral Tablet (Lasix) TAKE 1 TABLET BY MOUTH DAILY as needed for lower extremity swelling 90 Tablet 3 09/09/2022 Active Pantoprazole Sodium 20 MG Oral Tablet Delayed [...] the morning. 30 Tablet 2 12/09/2022 Active Benzonatate 200 MG Oral CapsuleIndications: Bronchitis, complicated Take 1 Capsule by mouth 3 times a day as needed for Cough. 30 Capsule 1 12/12/2022 Active Linzess 290 MCG Oral Capsule (linaCLOtide) [...] s:Recurrent major depressive disorder, in partial remission ([facility]) TAKE 1 TABLET BY MOUTH DAILY 90 [...] times daily 1200 mL 0 03/01/2023 Active Hospital, Clinic, or Other Facility Administered [...] as of this encounter (statuses as of 03/01/2023) Active Problems Problem Noted Date Thrombocytopenia 01/17/2023 [...] as of this encounter (statuses as of 03/01/2023) Resolved Problems Problem Noted Date Resolved Date [...] current situation. 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 if a floor manager plan is made -continue lexapro Generalized [...] pain 01/24/2012 01/17/2017 Genetic Sleep Disorder Research Other*[id number] 05/13/2011 04/07/2016 Obstructive sleep apnea 01/18/2011 12/27/19 [...] as of this encounter (statuses as of 03/01/2023) Immunizations Name Administration Dates Next Due COVID-19 mRNA, LNP-s, No Pre serve, 2-Dose Series (Moderna) 01/05/2022,07/26/2021,12/21/2020,11/09 HEP A - Hepatitis A (Adult > 18 yrs) 09/24/2018, 03/26/2018 Hepatitis B, 20+ yrs 09/24/2018,04/23/2018,03/26 Pneumococcal Conjugate Vacc, 13 Valent (Prevnar) 05/02/2019 Pneumococcal Conjugate Vacci ne, 20-valent ([id number]) 10/21/2022 Pneumococcal Polysaccharide PPV23 (Pneumovax) 06/01/2010 Seasonal [...] Date Smoking Tobacco: Never Smokeless Tobacco: Never Tobacco Cessation:Counseling Given: Not Answered Alcohol Use Standard Drinks/Week Comments Not Currently [...] as of this encounter Nursing Notes * Rain Damon RRT - 03/01/2023 1:34 PM EDT Shaina Bustos was identified by name, Date of : (1955), and . Vitals were obtained from patient. Pt was in wheelchair and is unable to ambulate or stand. Pt does not have a smoking history. Pt wears BIPAP@ HS. Spirometry and DLCO performed. A slow volume nebulizer treatment of 0.5ml of albuterol in 3 ml of NSS was given. The proper method of use, as well as anticipated side effects, of this svn are discussed and demonstrated to the patient. Patient demonstrates adequate delivery. Administrations This Visit Albuterol Sulfate (Proventil) (2.5 MG/3ML) 0.083% inhalation solution 2.5 mg Admin Date 03/01/2023 Action Given Dose 2.5 mg Route Nebulizer Administered By Rain Damon RRT documented in this encounter Plan of Treatment Upcoming Encounters Date Type Specialty Care Team Description 03/09/2023 [facility] Visit [facility] July Poe RN [address] [facility] [place] [address] 03/16/2023 Hem/Onc Treatment Hematology Oncology [place], Chair 10 Hem Onc Scenery [address] [facility] [place] [address] 03/16/2023 Office Visit Pharmacy Pharmacist1, [facility] [address] [facility] [place] [address] 04/19/2023 Office Visit Sleep Disorders Lanette Fields CRNP [address] [place] [address] 05/19/2023 Telemedicine [facility] Samir JoselinZAK Iyer [address] [place] [address] Monika Zamora, [address] [place] [address] 05/22/2023 Office Visit Gastroenterology Lyssa Stout CRNP [address] [place] [address] 06/27/2023 Office Visit Hematology Oncology Tono Sanchez MD [address] [place] [address] 07/31/2023 Office Visit Family Medicine Vanita Dunn MD [address] [place] [address] 10/04/2023 Office Visit Gynecology Obstetrics Renetta Martinez MD [address] [place] [address] Pending Results Name Type Priority Associated Diagnoses Date /Time SPIROMETRY B/A BRONCHODILATOR Procedures Routine Moderate persistent asthma without complication 03/01/2023 1:16 PM EDT DIFFUSION CAPACITY (DLCO) Procedures Routine Moderate persistent asthma without complication 03/01/2023 1:16 PM EDT Scheduled Procedures Name Priority Associated [...] Additional history exists Yearly B-12 02/23/2024 02/22/2023, 0 01/2022, 07/06/2021, Additional [...] this encounter Medical Devices Implanted Type Area Behavioral Health Associate Device Identifier Shelf Expiration Date Model / Serial / Lot Microtech Sure Clip Implanted:Qty: 2 on 06/03/2020 by Janis Hatch DO at OR [facility] Clip N/A: Colon 04/21/2022 [facility]-F-26-2 35-C-R / / [id number] documented as of this encounter Procedures Procedure Name Priority Date/Time Associated Diagnosis Comments DIFFUSION CAPACITY (DLCO) Routine 2022 1:16 PM EDT Moderate persistent asthma without complication SPIROMETRY B/A BRONCHODILATOR Routine 03/01/2023 1:16 PM EDT Moderate persistent asthma without complication documented in this encounter Visit Diagnoses Diagnosis Moderate persistent asthma without complication- Primary Unspecified asthma documented in this encounter Administered Medications Active Administered Medications - up to 3 most recent administrations Medication Order MAR Action Action Date Dose Rate Site Albuterol Sulfate (Proventil) (2.5 MG/3ML) 0.083% inhalation solution 2.5 mg 2.5 mg, Nebulizer, PRN Other, ONCE FOR PFT, Starting on 12/09/22 at 1354, Until 12/09/23 at 1353, For 365 days Given 03/01/2023 1:09 PM EDT 2.5 mg documented in this encounter Advance Directives Documents on File Type Date Recorded Patient Child Study Team Director Expl anation Advance Directives and Living Will 04/29/2021 ADVANCE DIRECTIVE / LIVING WILL LIVING WILL AND HEALTH CARE POA Power of Tare Weigher 04/29/2021 [facility] [...] the patient have Health Care Power of Tare Weigher? No Code Status History Code Status Date Activated Date Inactivated Comments Full Code 12/27/2021 2:50 PM 12/27/2021 8:02 PM This order reflects the patients wishes and were consensually agreed upon. Question Answer Comments Discussion of Advance Directives occurred with: Not Discussed Does the patient have a Living Will? No Does the patient have Health Care Power of Tare Weigher? No Full Code 03/31/2021 8:57 PM 04/03/2021 [...] Agents on File Name Relationship Healthcare Agent [employer] p Communication Syed Bustos Spouse Emergency Contact Care Teams Loss Prevention Auditor Relationship Specialty Start Date End Date Vanita Dunn MD [address] [place] [address] PCP - General Family Medicine 03/16/21 documented as of this encounter
--- OUTSIDE RECORDS SUMMARY | 2023-05-10 16:42 | External Medical Summary | Summary of Care ---
Author Name Unknown Organization [facility] Address [address] [facility] [place] [address] Phone [phone] Care Team Providers Care Bar 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 Name Role Phone Vanita Dunn MD Primary Care Provid er Reason for Visit * Reason Comments eRx-Medication Refill Encounter Details Date Type Department Care Team Description 02/28/[address] [address] Lyssa Saxena CRNP [address] [facility] [place] [address] Allergies Active Allergy Reactions Severity Noted Date Comments Adhesive Tape Itching 04/29/2020 Penicillins Rash 02/12/2008 Penicillin G 07/20/2018 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 documented as of this encounter (statuses as of 03/01/2023) Medications Medication Sig Dispensed Refills Start Date End Date Status nystatin (NYSTOP) 877120 UNIT/GM powder Apply topically to affected area 3 times a day. 60 g 1 10/16/19 20 Active Dexcom G6 Medicaid Specialist Device Use as directed. To test blood sugars 4 times a day Dx E11.9 1 Each 0 09/14/19 21 Active Dexcom G6 Transmitter Use as directed. To test blood sugars 4 times a day. Change every 90 days. Dx E11.9 1 Each 3 09/14/19 21 Active OneTouch Verio In Vitro Strip (Glucose Blood) TESTING once daily 100 Strip 3 10/29/19 21 Active OneTouch Delica Plus [id number] TESTING once daily 100 Each 3 10/29/19 21 Active Nitroglycerin 0.4 MG Sublingual Tablet Sublingual (Nitrostat) Place 1 Tab under the tongue every 5 minutes as needed for Pain, Chest. up to 3 doses in 15 minutes 25 Tab 11 03/03/20 21 Active BiPAP every night at bedtime. 0 Active MEDICAL INSTRUCTIONSIndica tions:Iron deficiency anemia due to chronic blood loss Please de-access patient's port. Please flush with 10 mL of NS, followed by 500 units (5 mL) of heparin. 1 Each 0 03/12/20 21 Active Docusate Sodium 100 MG Oral Capsule (Colace) TAKE 1 CAPSULE BY MOUTH ONCE DAILY 68 Cap 0 05/29/20 21 Active Fluticasone Propionate 50 MCG/ACT Nasal Suspension (Flonase)Indicatio ns:Sinus congestion USE 2 SPRAYS IN EACH NOSTRIL ONCE DAILY DIRECTED 16 g 5 06/11/20 21 Active Dexcom G6 Sensor use as directed to test blood sugar 4 times daily. change sensor every 10 days 3 Each 3 09/27/19 22 Active Disposable Brief X-LargeIndications :Hypertensive heart disease with chronic diastolic congestive heart failure (HCC),Hepatic cirrhosis, unspecified hepatic cirrhosis type, unspecified whether ascites present (HCC),Other cerebral palsy (HCC),Urinary incontinence, unspecified type,Frequent fecal incontinence Use as directed 60 Each 5 10/06/19 22 Active Trulicity 4.5 MG/0.5ML Subcutaneous Solution Pen-injector (Dulaglutide)Indic ations:Type 2 diabetes mellitus with hemoglobin A1c goal of less than 7.0% (HCC) inject 4.5mg (1 pen) under the skin once weekly 6 mL 5 02/23/20 22 Active Spironolactone 25 MG Oral Tablet (Aldactone) Take by mouth 2 Tablets in the morning. 180 Tablet 3 05/06/20 22 Active traZODone HCl 50 MG Oral Tablet (Desyrel)Indicatio ns:Sleep disturbances TAKE 1 TABLET BY MOUTH AT BEDTIME 90 Tablet 3 05/12/20 22 Active Levothyroxine Sodium 150 MCG Oral Tablet (Levoxyl)Indicatio ns:Acquired hypothyroidism Take by mouth 1 Tablet in the morning. (at least 30 min prior to breakfast or other meds). 30 Tablet 11 05/20/20 22 Active BD Pen Needle Mini U/F 31G X 5 MM (Insulin Pen Needle)Indications :Type 2 diabetes mellitus with hemoglobin A1c goal of less than 7.0% ([facility]) USE TO INJECT INSULIN FOUR TIMES DAILY. 400 Each 3 05/23/20 22 Active Silver sulfADIAZINE 1 % External Cream (Silvadene)Indicat ions:Pressure injury of skin of sacral region, unspecified injury stage Apply topically to affected area daily . Apply to wound 85 g 11 07/06/20 22 Active NovoLOG FlexPen 100 UNIT/ML Subcutaneous Solution Pen-injectorIndica tions:Type 2 diabetes mellitus with hemoglobin A1c goal of less than 8.0% ([facility]) 35 Units at breakfast, 39 Units before lunch, 45 Units before supper 120 mL 3 07/28/20 22 Active Furosemide 20 MG Oral Tablet (Lasix) TAKE 1 TABLET BY MOUTH DAILY as needed for lower extremity swelling 90 Tablet 3 09/09/20 22 Active Pantoprazole Sodium 20 MG Oral Tablet Delayed Release (Protonix)Indicati ons:NAFLD (nonalcoholic fatty liver disease),Other cirrhosis of liver (HCC) Take 2 Tablets by mouth in the morning and 2 Tablets before bedtime. 360 Tablet 1 10/18/19 23 Active Albuterol Sulfate (2.5 MG/3ML) 0.083% Inhalation Nebulization Solution (Proventil)Indicat ions:Restrictive lung disease Inhale 1 Vial via nebulizer every 6 hours as needed for Wheezing. 120 mL 1 11/22/19 23 Active Aspirin Low Dose 81 MG Oral Tablet Chewable (aspirin) CHEW AND SWALLOW 1 TABLET BY MOUTH DAILY 30 Tablet 5 12/04/19 23 Active Cetirizine HCl 10 MG Oral Tablet (ZyrTEC) Take 0.5 Tablets by mouth in the morning. 30 Tablet 2 12/10/19 23 Active Benzonatate 200 MG Oral CapsuleIndications :Bronchitis, complicated Take 1 Capsule by mouth 3 times a day as needed for Cough. 30 Capsule 1 12/13/19 23 Active Linzess 290 MCG Oral Capsule (linaCLOtide) TAKE 1 CAPSULE BY MOUTH once DAILY before breakfast 90 Capsule 3 12/24/19 23 Active Potassium Chloride ER 10 MEQ Oral Tablet Extended ReleaseIndications :Hypokalemia Take by mouth 1 tablet in the morning with food. 90 Tablet 3 01/02/20 23 Active Lantus SoloStar 100 UNIT/ML Subcutaneous Solution Pen-injectorIndica tions:Type 2 diabetes mellitus with hemoglobin A1c goal of less than 8.0% (HCC) Inject 60 units subcutaneously at bedtime 45 mL 3 01/25/20 23 Active Nadolol 40 MG Oral Tablet (Corgard)Indicatio ns:HTN, goal below 140/90 TAKE 1 TABLET BY MOUTH DAILY 90 Tablet 01/27/20 23 Active Oxybutynin Chloride 5 MG Oral Tablet (Ditropan)Indicati ons: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,Other cerebral palsy (HCC) TAKE 1 TABLET BY MOUTH TWICE DAILY 180 Tablet 1 01/28/20 23 Active Gabapentin 300 MG Oral Capsule (Neurontin)Indicat ions:DM type 2 with diabetic peripheral neuropathy (HCC),Diabetic foot (HCC) TAKE 1 CAPSULE BY MOUTH IN THE MORNING, 1 CAPSULE MIDDAY, 2 CAPSULES IN THE EVENING. MAY TAKE AN EXTRA DOSE IN THE MORNING AND MIDDAY IF NEEDED FOR PAIN. MAX DAILY AMOUNT: 6 CAPSULES 360 Capsule 01/28/20 23 Active Escitalopram Oxalate 20 MG Oral Tablet (Lexapro)Indicatio ns:Recurrent major depressive disorder, in partial remission (HCC) TAKE 1 TABLET BY MOUTH DAILY 90 Tablet 3 01/27/20 23 Active Lidocaine-Prilocai ne 2.5-2.5 % External Cream (Emla)Indications: Encounter for antineoplastic chemotherapy,Iron deficiency anemia due to chronic blood loss Apply topically to affected area as needed for Other (when accessing port). APPLY TO SKIN OVER MEDIPORT & COVER 1HR PRIOR TO ACCESSING. 30 g 0 02/02/20 23 Active Fluticasone-Salmet jayme 250-50 MCG/ACT Inhalation Aerosol Powder Breath Activated (Advair Diskus) INHALE 1 PUFF BY MOUTH TWICE DAILY 180 Each 02/20/20 23 Active Isosorbide Mononitrate ER 30 MG Oral Tablet Extended Release 24 Hour (Imdur) TAKE 1 TABLET BY MOUTH DAILY 90 Tablet 02/20/20 23 Active metFORMIN HCl ER 500 MG Oral Tablet Extended Release 24 Hour (Glucophage XR) TAKE 1 TABLET BY MOUTH DAILY with food. 90 Tablet 1 02/20/20 23 Active Atorvastatin Calcium 80 MG Oral Tablet (Lipitor) TAKE 1 TABLET BY MOUTH EVERY DAY AT BEDTIME 90 Tablet 1 02/20/20 Active Lactulose 10 GM/15ML Oral Solution (Constulose) take 45 ml by mouth 3 times daily 1200 mL 0 03/01/20 Active Lactulose 10 GM/15ML Oral Solution (Constulose) TAKE 30G (45ML) BY MOUTH 3 TIMES DAILY 1200 mL 0 01/17/20 23 023 Discontinued Hospital, Clinic, or Other Facility Administered [...] Achilles tendinitis, right leg 04/08/2019 0 09/13/2021 [facility] resident 04/08/2019 05/02/2019 Ambulatory dysfunction 04/04/2019 2 Fall 04/04/2019 05/05/2020 Sprain of right ankle 04/04/2019 05/05/2020 Recurrent major depressive disorder, in partial remission 04/04/2019 11/08/2022 Overview: More recent Dx noted on PL Last Assessment & Plan: Seems very depressed about current situation. 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 if a intermediate project manager plan is made -continue lexapro Generalized [...] pain 01/24/2012 01/17/2017 Genetic Sleep Disorder Research Other*[id number] 05/13/2011 04/07/2016 Obstructive sleep apnea 01/18/2011 12/27/19 [...] (Prevnar) 05/02/2019 Pneumococcal Conjugate Vacci ne, 20-valent ([id number]) 10/21/2022 Pneumococcal Polysaccharide PPV23 (Pneumovax) 06/01/2010 Seasonal [...] * Telephone Encounter - ZAK Bolton - 03/01/2023 12:58 PM EDT Signed Prescriptions: Disp Refills Lactulose 10 GM/15ML Oral Solution (Constu*1200 mL0 Sig: take 45 ml by mouth 3 times daily Authorizing Provider: LYSSA SAXENA * Telephone Encounter - Tamara Fabian LPN - 03/01/2023 12:25 PM EDTPending Prescriptions: Disp Refills Lactulose 10 GM/15ML Oral Solution [Pharma*1,200 *0 Sig: take 45 ml by mouth 3 times daily * Telephone Encounter - Tamara Fabian LPN - 03/01/2023 12:24 PM EDT Provider to address: Vanita Dunn MD Reason for Call: eRx-Medication Refill Contact: My Chance Contact Type: Medication Outcome: Pending Prescriptions: Disp Refills Lactulose 10 GM/15ML Oral Solution (Const* 0 Sig: take 45 ml by mouth 3 times daily Last Visit: 01/24/2023 (in office), 09/17/2021 (telemedicine) Next Visit: 07/31/2023 Last date the medication was ordered: 01/16/2023 Patient Active Problem List Diagnosis Code Spinal stenosis of lumbar region without neurogenic claudication M48.061 Cerebral palsy (HCC) G80.9 HTN, goal below 130/80 I10 NG (nonalcoholic steatohepatitis) K75.81 Venous stasis dermatitis of both lower extremities I87.2 DDD (degenerative disc disease), lumbar M51.36 Lymphedema I89.0 Type 2 diabetes mellitus with hemoglobin A1c goal of less than 8.0% ([facility]) E11.9 Vitamin D deficiency E55.9 Restrictive lung disease J98.4 Obesity, morbid (more than 100 lbs over ideal weight or BMI > 40) ([facility]) E66.01 Dyslipidemia E78.5 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 R39.81 Acquired hypothyroidism E03.9 Chronic pain syndrome G89.4 MEDICATION USE AGREEMENT [id number] Cirrhosis of liver (HCC) K74.60 THAD on [...] (HCC) D61.818 Major depressive disorder, recurrent, moderate (HCC) F33.1 Generalized anxiety disorder F41.1 Hypertensive heart failure (HCC) I11.0 Thrombocytopenia (HCC) D69.6 Labs: Lab Results Component Value Date/Time [...] - [facility] 9.9 (H) 04/28/2020 04:37 PM Total Time including non face to face (minutes): 10 * Telephone Encounter - Sowmya Poon - 02/28/2023 11:25 PM EDTPending Prescriptions: Disp Refills Lactulose 10 GM/15ML Oral Solution [Pharma*1,200 *0 Sig: take 45 ml by mouth 3 times daily documented in this encounter Plan of Treatment Upcoming Encounters Date Type Specialty Care Team Description 03/09/2023 Home Visit [facility] July Poe RN [address] [place] [address] 03/16/2023 Hem/Onc Treatment Hematology [place] [place], Chair 10 Hem Onc [facility] [address] [facility], [place] [address] 03/16/2023 Office Visit Pharmacy Pharmacist1, [facility] [address] [facility], [place] [address] 04/19/2023 Office Visit Sleep Disorders Lanette Fields CRNP [address] [place] [address] 05/19/2023 [facility]medicine [facility] Joselin Dawson CRNP [address] [place] [address] Monika Zamora, [facility] [address] [place] [address] 05/22/2023 Office Visit Gastroenterology Lyssa Saxean CRNP [address] [place] [address] 06/27/2023 Office Visit Hematology Oncology Tono Sanchez MD [address] [place] [address] 07/31/2023 Office Visit Family Medicine Vanita Dunn MD [address], [place] [id number] 10/04/2023 Office Visit Gynecology Obstetrics Renetta Martinez MD [address] [place] [address] Scheduled Procedures Name Priority Associated Diagnoses Date/Ti [...] 02/03/2017, Additional history exists HbA1c 06/08/2023 12/06/2022, 0 [...] this encounter Medical Devices Implanted Type Area Brick And Block Mason Device Identifier Shelf Expiration Date Model / Serial / Lot Microtech Sure Clip Implanted:Qty: 2 on 06/03/2020 by Janis Hatch DO at OR [facility] Clip N/A: Colon 04/21/2022 [facility]-F-26-2 35-C-R / / [id number] documented as of this encounter Advance Directives Documents on File Type Date Recorded Patient Dormitory Keeper Expl anation Advance Directives and Living Will 04/29/2021 ADVANCE DIRECTIVE / LIVING WILL LIVING WILL AND HEALTH CARE POA Power of Change Director 04/29/2021 POWER OF A [facility] [...] the patient have Health Care Power of Change Director? No Code Status History Code Status Date Activated Date Inactivated Comments Full Code 12/27/2021 2:50 PM 12/27/2021 8:02 PM This order reflects the patients wishes and were consensually agreed upon. Question Answer Comments Discussion of Advance Directives occurred with: Not Discussed Does the patient have a Living Will? No Does the patient have Health Care Power of Change Director? No Full Code 03/31/2021 8:57 PM [...] Agents on File Name [facility] Syed [facility]ustos Spouse Emergency Contact Care Teams Bar 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 Relationship Specialty Start Date End Date Vanita Dunn MD [address] [place] [address] PCP - General Family Medicine 03/16/21 documented as of this encounter
--- OUTSIDE RECORDS SUMMARY | 2023-05-10 16:42 | External Medical Summary | Summary of Care ---
Author Name Unknown Organization [facility] Address [address] [facility] [place] [address] Phone [phone] Care Team Providers Care Paralegal Secretary Name Role Phone Vanita Dunn MD Primary Care Provid er Reason for Visit * Reason Onset Date Comments Medication Refill 03/01/2023 Please refill Benzonatate 200 mg capsules. Pt was here for PFT and requested refill. Encounter Details Date Type Department Care Team Description 03/01/2023 Telephone [facility] [address] [place] [address] Vanita Dunn MD [address] [place] [address] Medication Refill (Please refill Benzonata... Allergies Active Allergy Reactions Severity Noted Date Comments Adhesive Tape Itching 04/29/2020 Penicillins Rash 02/12/2008 Penicillin G 07/20/2018 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 documented as of this encounter (statuses as of 03/07/2023) Medications Medication Sig Dispensed Refills Start Date End Date Status nystatin (NYSTOP) 755844 UNIT/GM powder Apply topically to affected area 3 times a day. 60 g 1 0 Active Dexcom G6 Planing Machine Operator Device Use as directed. To [...] Strip 3 1 Active OneTouch Delica Plus [id number] TESTING once daily 100 Each 3 1 [...] hemoglobin A1c goal of less than 7.0% ([facility]) inject 4.5mg (1 pen) under the skin [...] to wound 85 g 11 2 Active NovoLOG FlexPen 100 UNIT/ML Subcutaneous Solution Pen-injectorIndicat ions:Type 2 diabetes mellitus with hemoglobin A1c goal of less than 8.0% (HCC) 35 Units at breakfast, 39 Units before lunch, 45 Units before supper 120 mL 3 2 Active Furosemide 20 MG Oral Tablet (Lasix) TAKE 1 TABLET BY MOUTH DAILY as needed for lower extremity swelling 90 Tablet 3 2 Active Pantoprazole Sodium 20 MG Oral Tablet [...] with food. 90 Tablet 3 3 Active Lantus SoloStar 100 UNIT/ML Subcutaneous Solution Pen-injectorIndicat ions:Type 2 diabetes mellitus with hemoglobin A1c goal of less than 8.0% (HCC) Inject 60 units subcutaneously at bedtime 45 mL 3 3 Active Nadolol 40 MG Oral [...] for Cough. 30 Capsule 1 3 Active Benzonatate 200 MG Oral CapsuleIndications: Bronchitis, complicated Take 1 Capsule by mouth 3 times a day as needed for Cough. 30 Capsule 1 3 03/07/20 Discontinu ed(Refill) Hospital, Clinic, or Other Facility Administered Medication [...] as of this encounter (statuses as of 03/07/2023) Active Problems Problem Noted Date Thrombocytopenia 01/17/2023 [...] as of this encounter (statuses as of 03/07/2023) Resolved Problems Problem Noted Date Resolved Date [...] Achilles tendinitis, right leg 04/08/2019 0 09/13/2021 [facility] resident 04/08/2019 05/02/2019 Ambulatory dysfunction 04/04/2019 2 Fall 04/04/2019 05/05/2020 Sprain of right ankle 04/04/2019 05/05/2020 Recurrent major depressive disorder, in partial remission 04/04/2019 11/08/2022 Overview: More recent Dx noted on PL Last Assessment & Plan: Seems very depressed about current situation. 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 if a technician terminal and repeater plan is made -continue lexapro Generalized weakness [...] pain 01/24/2012 01/17/2017 Genetic Sleep Disorder Research Other*[id number] 05/13/2011 04/07/2016 Obstructive sleep apnea 01/18/2011 12/27/19 [...] as of this encounter (statuses as of 03/07/2023) Immunizations Name Administration Dates Next Due COVID-19 mRNA, LNP-s, No Pre serve, 2-Dose Series (Moderna) 01/05/2022,07/26/2021,12/21/2020,11/09 HEP A - Hepatitis A (Adult > 18 yrs) 09/24/2018, 03/26/2018 Hepatitis B, 20+ yrs 09/24/2018,04/23/2018,03/26 Pneumococcal Conjugate Vacc, 13 Valent (Prevnar) 05/02/2019 Pneumococcal Conjugate Vacci ne, 20-valent ([id number]) 10/21/2022 Pneumococcal Polysaccharide PPV23 (Pneumovax) 06/01/2010 Seasonal [...] Telephone Encounter - Vanita Dunn MD - 03/07/2023 8:37 AM EDT signed * Telephone Encounter - Rain Damon RRT - 03/01/2023 1:31 PM EDT lease refill Benzonatate 200 mg capsules. Pt was here for PFT and requested refill. documented in this encounter Plan of Treatment Upcoming Encounters Date Type Specialty Care Team Description 03/09/2023 Home Visit [facility] July Poe RN [address] [place] [address] 03/16/2023 Hem/Onc Treatment Hematology [facility] [place], Chair 3 Hem Onc Sc[facility] [address] [facility] [place] [address] 03/16/2023 Office Visit Pharmacy Pharmacist1, [facility] [address] [place] [address] 04/19/2023 Office Visit Sleep Disorders Lanette Fields CRNP [address] [place] [address] 05/19/2023 Telemedicine [facility] Joselin Dawson CRNP [address] [place] [address] Moinka Zamora, [address] [place] [address] 05/22/2023 Office Visit Gastroenterology Lyssa Stout CRNP [address] [place] [address] 06/27/2023 Office Visit Hematology Oncology Tono Sanchez MD [address] [facility] [place] [address] 07/31/2023 Office Visit Family Medicine MonaVanita MD [address] [place] [address] 10/04/2023 Office Visit Gynecology Obstetrics Renetta Martinez MD [address] [place] [address] Scheduled Procedures Name Priority Associated Diagnoses Date/Ti [...] this encounter Medical Devices Implanted Type Area Surveillance Analyst Device Identifier Shelf Expiration Date Model / Serial / Lot Microtech Sure Clip Implanted:Qty: 2 on 06/03/2020 by Janis Hatch DO at OR [facility] Clip N/A: Colon 04/21/2022 [facility]-F-26-2 35-C-R / / [id number] documented as of this encounter Visit Diagnoses Diagnosis Bronchitis, complicated Bronchitis, not specified as acute or chronic documented in this encounter Advance Directives Documents on File Type Date Recorded Patient Car Mover Expl anation Advance Directives and Living Will 04/29/2021 ADVANCE DIRECTIVE / LIVING WILL LIVING WILL AND HEALTH CARE POA Power of Parcel Post Truck Driver 04/29/2021 POWER OF A [facility] [...] the patient have Health Care Power of Parcel Post Truck Driver? No Code Status History Code Status Date Activated Date Inactivated Comments Full Code 12/27/2021 2:50 PM 12/27/2021 8:02 PM This order reflects the patients wishes and were consensually agreed upon. Question Answer Comments Discussion of Advance Directives occurred with: Not Discussed Does the patient have a Living Will? No Does the patient have Health Care Power of Parcel Post Truck Driver? No Full Code 03/31/2021 8:57 PM [...] Agents on File Name Relationship Healthcare Agent [facility] Communication Syed Bustos Spouse Emergency Contact Care Teams Paralegal Secretary Relationship Specialty Start Date End Date Vanita Dunn MD [address] [place] [id number] PCP - General Family Medicine 03/16/21 documented as of this encounter
--- OUTSIDE RECORDS SUMMARY | 2023-05-10 16:42 | External Medical Summary | Summary of Care ---
Author Name Unknown Organization [facility] Address [address] [place] [address] Phone [phone] Care Team Providers Care Market Risk Specialist Name Role Phone Vanita Dunn MD Primary Care Provid er Reason for Visit * Reason Onset Date Comments Appointment 02/28/2023 Encounter Details Date Type Department Care Team Description 02/28/2023 Telephone [facility], [place] [address] [facility] [place] [phone] Services, Scheduling [address] [place] [address] Appointment (//) Allergies Active Allergy Reactions Severity Noted Date Comments Adhesive Tape Itching 04/29/2020 Penicillins Rash 02/12/2008 Penicillin G 07/20/2018 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 documented as of this encounter (statuses as of 02/28/2023) Medications Medication Sig Dispensed Refills Start Date End Date Status nystatin (NYSTOP) 625949 UNIT/GM powder Apply topically to affected area 3 times a day. 60 g 1 10/16/2019 Active Dexcom G6 Home Service Director Device Use as directed. To test blood sugars 4 times a day Dx E11.9 1 Each 0 09/14/2020 Active Dexcom G6 Transmitter Use as directed. To test blood sugars 4 times a day. Change every 90 days. Dx E11.9 1 Each 3 09/14/2020 Active OneTouch Verio In Vitro Strip (Glucose Blood) TESTING once daily 100 Strip 3 10/29/2020 Active OneTouch Delica Plus [id number] TESTING once daily 100 Each 3 10/29/2020 [...] than 7.0% ([facility]) inject 4.5mg (1 pen) under the skin [...] with food. 90 Tablet 3 01/01/2023 Active Lactulose 10 GM/15ML Oral Solution (Constulose) TAKE 30G (45ML) BY MOUTH 3 TIMES DAILY 1200 mL 0 01/16/2023 Active Lantus SoloStar 100 UNIT/ML Subcutaneous Solution [...] AT BEDTIME 90 Tablet 1 02/19/2023 Active Hospital, Clinic, or Other Facility Administered [...] as of this encounter (statuses as of 02/28/2023) Active Problems Problem Noted Date Thrombocytopenia 01/17/2023 [...] as of this encounter (statuses as of 02/28/2023) Resolved Problems Problem Noted Date Resolved Date [...] mass index (BMI) of 45.0-49.9 in adult 0301/17/2017 Overview: bmi= 48.04 12/09/15 Need for shingles [...] pain 01/24/2012 01/17/2017 Genetic Sleep Disorder Research Other*[id number] 05/13/2011 04/07/2016 Obstructive sleep apnea 01/18/2011 12/27/19 [...] as of this encounter (statuses as of 02/28/2023) Immunizations Name Administration Dates Next Due COVID-19 mRNA, LNP-s, No Pre serve, 2-Dose Series (Moderna) 01/05/2022,07/26/2021,12/21/2020,11/09 HEP A - Hepatitis A (Adult > 18 yrs) 09/24/2018, 03/26/2018 Hepatitis B, 20+ yrs 09/24/2018,04/23/2018,03/26 Pneumococcal Conjugate Vacc, 13 Valent (Prevnar) 05/02/2019 Pneumococcal Conjugate Vacci ne, 20-valent ([id number]) 10/21/2022 Pneumococcal Polysaccharide PPV23 (Pneumovax) 06/01/2010 Seasonal [...] shopping? (15 years old or older) No 07/21/20 21 Cognitive Status Response Date of Assessm ent Because of a physical, menta l, or emotional condition, do you have serious difficulty concentrating, remembering, or making decisions? (5 years old or older No 03/31/2021 documented as of this encounter Miscellaneous Notes * Telephone Encounter - THAD Graves - 02/28/2023 11:05 AM EDT Request to schedule a ret telemed in May I called and gave info of appt on 05/19@130 to Spouse documented in this encounter Plan of Treatment Upcoming Encounters Date Type Specialty Care Team Description 03/01/2023 PulmDiagnostic Pulmonary Function [place], Pft [address] [place] [address] 03/09/2023 Home Visit [facility] July Poe RN [address] [place] [address] 03/16/2023 Hem/Onc Treatment Hematology Oncology [place], Chair 10 Hem Onc Scenery [address] [facility] [place] [address] 03/16/2023 Office Visit Pharmacy Pharmacist1, [facility] [address] [place] [address] 04/19/2023 Office Visit Sleep Disorders Lanette Fields CRNP [address] [place] [address] 05/19/2023 Telemedicine [facility] Joselin Dawson CRNP [address] [place] [address] Monika Zamora, [facility] Dynamometer Tester Engine [address] [place] [address] [place] [address] 05/22/2023 Office Visit Gastroenterology Lyssa Stout CRNP [address] [place] [address] 06/27/2023 Office Visit Hematology Oncology Tono Sanchez MD 200 [place] [address] 07/31/2023 Office Visit Family Medicine Vanita Dunn MD [address] [place] [address] 10/04/2023 Office Visit Gynecology Obstetrics Renetta Martinez MD [address] [place] [address] Scheduled Procedures Name Priority Associated Diagnoses Date/Ti [...] this encounter Medical Devices Implanted Type Area Falafel Cart Cook Device Identifier Shelf Expiration Date Model / Serial / Lot Microtech Sure Clip Implanted:Qty: 2 on 06/03/2020 by Janis Hatch DO at OR [facility] Clip N/A: Colon 04/21/2022 [facility]-F-26-2 35-C-R / / [id number] documented as of this encounter Advance Directives Documents on File Type Date Recorded Patient Tip Length Checker Expl anation Advance Directives and Living Will 04/29/2021 ADVANCE DIRECTIVE / LIVING WILL LIVING WILL AND HEALTH CARE POA Power of Drapery Installer 04/29/2021 [facility] [...] the patient have Health Care Power of Drapery Installer? No Code Status History Code Status Date Activated Date Inactivated Comments Full Code 12/27/2021 2:50 PM 12/27/2021 8:02 PM This order reflects the patients wishes and were consensually agreed upon. Question Answer Comments Discussion of Advance Directives occurred with: Not Discussed Does the patient have a Living Will? No Does the patient have Health Care Power of Drapery Installer? No Full Code 03/31/2021 8:57 PM 04/03/2021 [...] Syed Bustos Spouse Emergency Contact Care Teams Market Risk Specialist Relationship Specialty Start Date End Date Vanita Dunn MD [address] [place] [address] PCP - General Family Medicine 03/16/21 documented as of this encounter
--- OUTSIDE RECORDS SUMMARY | 2023-05-10 16:43 | External Medical Summary ---
Author Name Unknown Address Unknown Organization K09:[facility] [place] [address] Laboratory Report Ordering Provider Test Date Status JACOB CORBETT 02/22/2023 12:58:44 Final Observation Date Value Abnormality Reference (Units ) Status Nucleated erythrocytes/100 leukocytes [Ratio] in Blood by Automated count 02/22/2023 12:58:44 Final Performing Location [facility] [place] [address]
--- OUTSIDE RECORDS SUMMARY | 2023-05-10 16:43 | External Medical Summary ---
Author Name Unknown Address Unknown Organization K01:[facility] [place] - [address] [place] [address] Laboratory Report Ordering Provider Test Date Status NITISH REYES V 02/22/2023 12:58:44 Final Observation Date Value Abnormality Reference (Units ) Status Vitamin B12 02/22/2023 12:58:44 1583 Above high normal 232-1245 (pg/mL) Final Performing Location [facility] - [address] [place] [address]
--- OUTSIDE RECORDS SUMMARY | 2023-05-10 16:43 | External Medical Summary ---
Author Name Unknown Address Unknown Organization K09:[facility] [place] [place] [address] Laboratory Report Ordering Provider Test Date Status JACOB CORBETT 02/22/2023 12:58:44 Final Observation Date Value Abnormality Reference (Units ) Status SYNC LEUKOCYTES IN BLOOD BY AUTOMATED COUNT 02/22/2023 12:58:44 3.94 Below low normal 4.00-10.80 (K/uL) Final Segs 02/22/2023 12:58:44 51.4 40.0-75.0 (%) Final Lymphs % 02/22/2023 12:58:44 18.3 18.0-42.0 (%) Final Monos 02/22/2023 12:58:44 17.3 Above high normal 1.0-11.0 (%) Final Eosinophils 02/22/2023 12:58:44 12.2 Above high normal 0.0-6.0 (%) Final Basos 02/22/2023 12:58:44 0.8 0.0-2.0 (%) Final Absolute Segs 02/22/2023 12:58:44 2.03 1.80-7.70 (K/uL) Final Lymphs, absolute 02/22/2023 12:58:44 0.72 Below low normal 1.00-4.80 (K/ul) Final Monos, Abs 02/22/2023 12:58:44 0.68 0.00-1.10 (K/uL) Final Eos, Abs 02/22/2023 12:58:44 0.48 0.00-0.70 (K/uL) Final Basos, Abs 02/22/2023 12:58:44 0.03 0.00-0.20 (K/uL) Final Performing Location [facility] [place] [address] [address]
--- OUTSIDE RECORDS SUMMARY | 2023-05-10 16:43 | External Medical Summary | Summary of Care ---
Author Name Unknown Organization [facility] Address [address] [facility] [place] [address] Phone [phone] Care Team Providers Care Quencher Operator Name Role Phone Vanita Dunn MD Primary Care Provid er Reason for Visit * Reason Comments Diabetes Follow-Up Dosage Adjustment In Person (Anticoag Cl inic) Encounter Details Date Type Department Care Team Description 02/22/2023 Office Visit Pharmacy, [facility] [place] [address] [facility] [place] [address] Pharmacist1, [facility] 200 [facility] [place] [address] Type 2 diabetes mellitus with hemoglobin A1c goal of less than 8.0% ([facility])* Allergies Active Allergy Reactions Severity Noted Date Comments Adhesive Tape Itching 04/29/2020 Penicillins Rash 02/12/2008 Penicillin G 07/20/2018 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 documented as of this encounter (statuses as of 02/22/2023) Medications Medication Sig Dispensed Refills Start Date End Date Status nystatin (NYSTOP) 085661 UNIT/GM powder Apply topically to affected area 3 times a day. 60 g 1 10/16/2019 Active Dexcom G6 Director Of Midwifery/Staff Midwife Device Use as directed. To test blood sugars 4 times a day Dx E11.9 1 Each 0 09/14/2020 Active Dexcom G6 Transmitter Use as directed. To test blood sugars 4 times a day. Change every 90 days. Dx E11.9 1 Each 3 09/14/2020 Active OneTouch Verio In Vitro Strip (Glucose Blood) TESTING once daily 100 Strip 3 10/29/2020 Active OneTouch Delica Plus [id number] TESTING once daily 100 Each 3 10/29/2020 [...] goal of less than 7.0% ([facility]) inject 4.5mg (1 pen) under the skin [...] goal of less than 7.0% ([facility]) USE TO INJECT INSULIN FOUR TIMES DAILY. [...] goal of less than 8.0% ([facility]) 35 Units at breakfast, 39 Units before [...] as of this encounter (statuses as of 02/22/2023) Active Problems Problem Noted Date Thrombocytopenia 01/17/2023 [...] as of this encounter (statuses as of 02/22/2023) Resolved Problems Problem Noted Date Resolved Date [...] situation. 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 if a long term care administrator plan is made -continue lexapro Generalized weakness [...] pain 01/24/2012 01/17/2017 Genetic Sleep Disorder Research Other*[id number] 05/13/2011 04/07/2016 Obstructive sleep apnea 01/18/2011 12/27/19 [...] as of this encounter (statuses as of 02/22/2023) Immunizations Name Administration Dates Next Due COVID-19 mRNA, LNP-s, No Pre serve, 2-Dose Series (Moderna) 01/05/2022,07/26/2021,12/21/2020,11/09 HEP A - Hepatitis A (Adult > 18 yrs) 09/24/2018, 03/26/2018 Hepatitis B, 20+ yrs 09/24/2018,04/23/2018,03/26 Pneumococcal Conjugate Vacc, 13 Valent (Prevnar) 05/02/2019 Pneumococcal Conjugate Vacci ne, 20-valent ([id number]) 10/21/2022 Pneumococcal Polysaccharide PPV23 (Pneumovax) 06/01/2010 Seasonal [...] encounter Progress Notes * Jonas Atwood V, [facility] - 02/22/2023 12:51 PM EDT Images from the original note were not included. Medication Therapy Disease Management [facility] - Diabetes Management Progress Note Shaina Bustos, identified by name and date of , is a 67 year old female being seen for diabetesmanagement/education. Patient presents for return diabetic visit. DIABETES: Current diabetic medications: INCREASE: Novolog, Inject 35 units before breakfast, 39units before lunch, [id number] before supper DECREASE: Lantus pen54 units daily Metformin ER 500mg daily Trulicity 4.5mg SQ weekly Medication Injection Site: Abdomen Lifestyle: Diet: unchanged History of Treatment Barriers: Lifestyle: wheelchair bound Therapy considerations: None Medication: Metformin IR:GM? Glucose Review/SMBG: Readings obtained from patient device Hypoglycemia: Does your blood sugar go below 70 mg/dL? Yes, before breakfast Hyperglycemia symptoms present: none Goal <8 Recent Labs Units 12/06/22 1408 05/19/22 1449 [...] goal BP Readings from Last 3 Encounters: 02/16/23 124/64 02/13/23 128/66 02/09/23 120/70 Blood pressure at goal: yes HYPERLIPIDEMIA: Patient is taking moderate or high intensity statin: yes, Atorvastatin 80mg daily HEALTH MAINTENANCE REVIEW: Health Maintenance Due Topic Date Due DXA Scan Never done DIABETES-EYE EXAM 06/12/2019 Zoster Vaccines (3 of 3) 06/23/2020 Depression Screening, Annual for Pts 12 and Over 07/27/2021 COVID-19 Vaccine (5 - Moderna series) 03/02/2022 DIABETES-FOOT EXAM 04/05/2022 Yearly B-12 09/15/2022 Albumin/Creatinine Ratio 03/30/2023 ASSESSMENT & PLAN: ICD-10-CM 1. Type 2 diabetes mellitus with hemoglobin A1c goal of less than 8.0% (HCC) E11.9 BG Readings - Blood sugars uncontrolled. Improved on average by 46 points Medications - Reviewed current regimen, patient is adherent to regimen. Diet, Exercise, Lifestyle - No significant lifestyle changes since last visit. Discussed with patient today. Patient is agreeable to wear Dexcom G6 CGM. Patient aware to contact clinic if any hypoglycemia before next visit. MEDICATION CHANGES: yes, see below; preferred pharmacy: [facility] Medications: INCREASE: Novolog, Inject 35 units before breakfast, 40units before lunch, [id number] before supper DECREASE: Lantus pen50 units daily Metformin ER 500mg daily Trulicity 4.5mg SQ weekly HEALTH MAINTENANCE INTERVENTIONS: Labs: Ordered & Scheduled: Urine Microalbumin and Vitamin B12 Immunizations:[id number] shingles and covid booster Foot Exam:needs completed Eye Exam:needs completed Annual Wellness Visit:N/A FOLLOW UP: Return to clinic in 3 weeks 03/16/2023 Jonas Atwood RPh, CDE Clinical Pharmacist - Joy Operator Helper Medication Therapy Management Clinic 02/22/2023, 12:51 PM documented in this encounter Plan of Treatment Upcoming Encounters Date Type Specialty Care Team Description 03/01/2023 PulmDiagnostic Pulmonary Function [place], P[address] [place] [address] 03/09/2023 Home Visit [facility] July Poe, RN [address] [place] [address] 03/16/2023 Hem/Onc Treatment Hematology Oncology [place], Chair [address] [address] 03/16/2023 Office Visit Pharmacy Pharmacist1, [facility] [address] [facility] [address] 04/19/2023 Office Visit Sleep Disorders Lanette Fields CRNP [address] [place] [address] 05/22/2023 Office Visit Gastroenterology Lyssa Stout CRNP [address] [place] [address] 06/27/2023 Office Visit [facility]ematology [facility]cology [facility] [address] [facility] [address] 07/31/2023 Office Visit Family Medicine Vanita Dunn MD [address] [place] [address] 10/04/2023 Office Visit Gynecology Obstetrics Renetta Martinez MD [address] [place] [address] Scheduled Procedures Name Priority Associated Diagnoses Date/Ti [...] 04/05/2021, 0 11/06/2019, 01/09/2019, Additional history exists Yearly B-12 09/15/2022 09/15/2021, 06/12, 04/01/2021, Additional history exists Albumin/Creatinine Ratio 03/30/2023 022, 01/11/2019, 02/03/2017, Additional history exists HbA1c 06/08/2023 12/06/2022, 09/0 04/2022, 01/24/2022, Additional history exists TSH 07/06/2023 07/06/2022, 09/0 04/2022, 06/10/2021, Additional history exists Mammogram 12/10/2023 12/09/2022, 08/13, 09/08/2020, Additional history exists GFR 02/02/2024 02/01/2023, 11/10, 08/30/2022, Additional history exists COLONOSCOPY-EVERY 5 YRS AGES 18-100 06/03/2025 06/03/2020, 06/03/2020, 03/17/2020, Additional history exists Lipid Panel 09/14/2026 09/14/2021, 02/09, 04/05/2019, Additional history exists DTaP,Tdap,and Td Vaccines (3 - Td or Tdap) 05/01/2027 05/01/2017, 05/26/2008 Pap Smear Discontinued 10/10/2016, 06/12, 04/16/2013, Additional [...] this encounter Medical Devices Implanted Type Area Cloud Administrator Device Identifier Shelf Expiration Date Model / Serial / Lot Microtech Sure Clip Implanted:Qty: 2 on 06/03/2020 by Janis Hatch DO at OR [facility] Clip N/A: Colon 04/21/2022 [facility]-F-26-2 35-C-R / / [id number] documented as of this encounter Visit Diagnoses Diagnosis Type 2 diabetes mellitus with hemoglobin A1c goal of less than 8.0% ([facility])- Primary documented in this encounter Advance Directives Documents on File Type Date Recorded Patient Sports Information Director Expl anation Advance Directives and Living Will 04/29/2021 ADVANCE DIRECTIVE / LIVING WILL LIVING WILL AND HEALTH CARE POA Power of Extension Division Director 04/29/2021 POWER OF A [facility] [...] the patient have Health Care Power of Extension Division Director? No Code Status History Code Status Date Activated Date Inactivated Comments Full Code 12/27/2021 2:50 PM 12/27/2021 8:02 PM This order reflects the patients wishes and were consensually agreed upon. Question Answer Comments Discussion of Advance Directives occurred with: Not Discussed Does the patient have a Living Will? No Does the patient have Health Care Power of Extension Division Director? No Full Code 03/31/2021 8:57 PM [...] Syed Bustos Spouse Emergency Contact Care Teams Quencher Operator Relationship Specialty Start Date End Date Vanita Dunn MD [address] [place] [address] PCP - General Family Medicine 03/16/21 documented as of this encounter
--- OUTSIDE RECORDS SUMMARY | 2023-05-10 16:43 | External Medical Summary | Summary of Care ---
Author Name Unknown Organization [facility] Address [address] [facility] [place] [address] Phone [phone] Care Team Providers Care Practical Nurse Name Role Phone Vanita Dunn MD Primary Care Provid er Reason for Visit * Reason Comments IV Therapy Venofer Encounter Details Date Type Department Care Team Description 02/22/2023 Hem/Onc Treatment Hematology/Oncology Treatment, [place] [address] [place] [address] [place], Chair 10 Hem Onc [place] [address] [place] [address] Iron deficiency anemia due to chronic blood loss*; Dyslipidemia; Encounter for long-term (current) use of medications Allergies Active Allergy Reactions Severity Noted Date Comments Adhesive Tape Itching 04/29/2020 Penicillins Rash 02/12/2008 Penicillin G 07/20/2018 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 documented as of this encounter (statuses as of 02/22/2023) Medications Medication Sig Dispensed Refills Start Date End Date Status nystatin (NYSTOP) 637433 UNIT/GM powder Apply topically to affected area 3 times a day. 60 g 1 10/16/2019 Active Dexcom G6 Tassel Making Machine Operator Device Use as directed. To [...] Strip 3 10/29/2020 Active OneTouch Delica Plus [id number] TESTING once daily 100 Each 3 10/29/2020 [...] goal of less than 8.0% ([facility]) 35 Units at breakfast, 39 Units before [...] current situation. 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 if a superintendent container terminal plan is made -continue lexapro Generalized [...] pain 01/24/2012 01/17/2017 Genetic Sleep Disorder Research Other*[id number] 05/13/2011 04/07/2016 Obstructive sleep apnea 01/18/2011 12/27/19 [...] (Prevnar) 05/02/2019 Pneumococcal Conjugate Vacci ne, 20-valent ([id number]) 10/21/2022 Pneumococcal Polysaccharide PPV23 (Pneumovax) 06/01/2010 Seasonal [...] Sign Reading Time Taken Comments Blood Pressure 104/68 02/22/2023 2:00 PM EDT Pulse 72 02/22/2023 2:00 PM EDT Temperature 36.4 C (97.6 F) 02/22/2023 2:00 PM ED T Respiratory Rate 18 02/22/2023 2:00 PM EDT Oxygen Saturation 93% 02/22/2023 2:00 PM EDT Inhaled Oxygen Concentration - - [...] as of this encounter Nursing Notes * Shelli Barakat RN - 02/22/2023 3:07 PM EDT Chair 12. Port accessed without difficulty. Labs drawn from port. Patient feeling okay overall but states that lately patient has had some bleeding mixed in with her urination/BM. Per , patient has been taking Lactulose lately and having BMs with this. Patient has recently seen Dr. Stout with GI regarding the bleeding and will f/u with Dr. Stout in 3 months. CBC drawn today and hgb/hct stable. Platelets are within patient's norm. Patient and are overall comfortable and deny further needs at this time. Safety and Risk for Injury Patient will remain free from injury. Ensure appropriate safety devices are available. Provide and maintain safe environment. Goals: Patient will remain free from injury. Possible barriers to meeting goals: ambulating with IV pole Stability of the patient: Moderately stable - low risk of patient condition declining or worsening Summary regarding today's goals: Met: Patient remained free of harm today Patient tolerated treatment well without any acute issues or problems. Patient left facility in stable condition and denied any further needs. documented in this encounter Plan of Treatment Upcoming Encounters Date Type Specialty Care Team Description 03/01/2023 PulmDiagnostic Pulmonary Function [place], [address] [place] [address] 03/09/2023 Home Visit [facility] July Poe, RN [address] [place] [address] 03/16/2023 Hem/Onc Treatment Hematology Oncology [place], Chair 10 Hem Onc [facility] [address] [place] [address] 03/16/2023 Office Visit Pharmacy Pharmacist1, [facility] [address] [place] [address] 04/19/2023 Office Visit Sleep Disorders Lanette Fields CRNP [address] [place] [address] 05/22/2023 Office Visit Gastroenterology Lyssa Stout CRNP [address] [place] [address] 06/27/2023 Office Visit Hematology Oncology Tono Sanchez MD [address] [place] [address] 07/31/2023 Office Visit Family Medicine Vanita Dunn MD [address] [place] [address] 10/04/2023 Office Visit Gynecology Obstetrics Renetta Martinez MD [address] [place] [address] Pending Results Name Type Priority Associated Diagnoses Date /Time LIPID PANEL WITH DIRECT LDL IF TG IS HIGH Lab Routine Dyslipidemia 02/22/2023 12:58 PM EDT VITAMIN B12 Lab Routine Encounter for long-term (current) use of medications 02/22/2023 12:58 PM EDT Scheduled Procedures Name Priority Associated [...] this encounter Medical Devices Implanted Type Area Recreation Engineer Device Identifier Shelf Expiration Date Model / Serial / Lot Microtech Sure Clip Implanted:Qty: 2 on 06/03/2020 by Janis Hatch DO at OR [facility] Clip N/A: Colon 04/21/2022 [facility]2 35-C-R / / [id number] documented as of this encounter Procedures Procedure Name Priority Date/Time Associated Diagnosis Comments DIFFERENTIAL, AUTOMATED STAT 02/22/2023 12:58 PM EDT Iron deficiency anemia due to chronic blood loss CBC WITH WBC DIFFERENTIAL STAT 02/22/2023 12:58 PM EDT Iron deficiency anemia due to chronic blood loss CBC STAT 02/22/2023 12:58 PM EDT Iron deficiency anemia due to chronic blood loss DIFFERENTIAL, TECHNOLOGIST REVIEW Routine 02/22/2023 12:58 PM EDT Iron deficiency anemia due to chronic blood loss documented in this encounter Results * DIFFERENTIAL, TECHNOLOGIST REVIEW (02/22/2023 12:58 PM EDT) nRBCs 02/22/2023 2:13 PM EDT [facility] [place] 56-02 Blood Venous blood specimen / Unknown Central Line / Unknown 02/22/2023 12:58 PM EDT 02/22/2023 1:44 PM EDT Tono Sanchez MD LAB BLOOD ORDERABLES [facility] [address] [place] [address] * (ABNORMAL) DIFFERENTIAL, AUTOMATED (02/22/2023 12:58 PM EDT) WBC 3.94(L) 4.00 - 10.80 K/uL 02/22/2023 2:13 PM EDT [facility] 56-02 Neutrophils % 51.4 40.0 - 75.0 % 02/22/2023 2:13 PM EDT [facility] 56- Lymphocytes % 18.3 18.0 - 42.0 % 02/22/2023 2:13 PM EDT [facility] 56- Monocytes % 17.3(H) 1.0 - 11.0 % 02/22/2023 2:13 PM EDT [facility] 56- Eosinophils % 12.2(H) 0.0 - 6.0 % 02/22/2023 2:13 PM EDT [facility] 56-02 Basophils % 0.8 0.0 - 2.0 % 02/22/2023 2:13 PM EDT [facility] 56-02 Absolute Neutrophils 2.03 1.80 - 7.70 K/uL 02/22/2023 2:13 PM EDT [facility] 56-02 Absolute Lymphocytes 0.72(L) 1.00 - 4.80 K/ul 02/22/2023 2:13 PM EDT [facility] 56-02 Absolute Monocytes 0.68 0.00 - 1.10 K/uL 02/22/2023 2:13 PM EDT [facility] 56-02 Absolute Eosinophils 0.48 0.00 - 0.70 K/uL 02/22/2023 2:13 PM EDT [facility] 56-02 Absolute Basophils 0.03 0.00 - 0.20 K/uL 02/22/2023 2:13 PM EDT [facility] 56-02 Blood Venous blood specimen / Unknown Central Line / Unknown 02/22/2023 12:58 PM EDT 02/22/2023 1:44 PM EDT Tono Sanchez MD LAB BLOOD ORDERABLES [facility] [address] [place] [address] * (ABNORMAL) CBC (02/22/2023 12:58 PM EDT) WBC 3.94(L) 4.00 - 10.80 K/uL 02/22/2023 2:13 PM EDT [facility] 56 RBC 2.93 3.85 - 5.15 M/uL 02/22/2023 2:13 PM EDT [facility] 56 HGB 11.1(L) 12.0 - 15.3 g/dL 02/22/2023 2:13 PM EDT [facility] 56 HCT 33.2(L) 36.0 - 45.2 % 02/22/2023 2:13 PM EDT [facility] 56 MCV 113.3 81.5 - 97.5 fL 02/22/2023 2:13 PM EDT [facility] 56 MCH 37.9 27.0 - 34.0 pg 02/22/2023 2:13 PM EDT [facility] 56 MCHC 33.4 32.0 - 36.0 g/dL 02/22/2023 2:13 PM EDT [facility] 56 RDW 17.1 11.5 - 15.5 % 02/22/2023 2:13 PM EDT [facility] 56 PLT 84(L) 140 - 400 K/uL 02/22/2023 2:13 PM EDT [facility] 56 MPV 12.8 6.6 - 11.1 fL 02/22/2023 2:13 PM EDT [facility] 56 Blood Venous blood specimen / Unknown Central Line / Unknown 02/22/2023 12:58 PM EDT 02/22/2023 1:44 PM EDT Tono Sanchez MD LAB BLOOD ORDERABLES [facility] [address] [place] [address] documented in this encounter Visit Diagnoses Diagnosis Iron deficiency anemia due to chronic blood loss- Primary Iron deficiency anemia secondary to blood loss (chronic) Dyslipidemia Other and unspecified hyperlipidemia Encounter for long-term (current) use of medications Encounter for long-term (current) use of other medications documented in this encounter Administered Medications Active Administered Medications - up to 3 most recent administrations Medication Order MAR Action Action Date Dose Rate Site diphenhydrAMINE (Benadryl) inj 50 mg 50 mg, IV Push, ONCE PRN Other, Hypersensitivity Reaction, Starting on Mon02/22/23 at 1324, Until [place] 02/23/23 at 1323, For 24 hours EPINEPHrine 1 MG/ML inj 0.3 mg 0.3 mg, Intramuscular, ONCE PRN Other, Hypersensitivity Reaction or Anaphylaxis, Starting on Mon02/22/23 at 1324, Until [place] 02/23/23 at 1323, For 24 hours hEParin 100 UNIT/ML Lock Flush inj 500 Units 500 Units (5 mL), IV Lock, PRN Other, IV Flush, Starting on Mon02/22/23 at 1324, Until [place] 02/23/23 at 1323, For 24 hours, Do not flush if lock, PICC, or central line not in place; IV infusing or unable to flush. Given 02/22/2023 2:57 PM EDT 500 Units Hydrocortisone Sod Suc (PF) (Solu-Cortef) inj 100 mg 100 mg, IV Push, ONCE PRN Other, Hypersensitivity Reaction, Starting on Mon02/22/23 at 1324, Until [place] 02/23/23 at 1323, For 24 hours NSS infusion 500 mL, Intravenous, at 50 mL/hr, CONTINUOUS, Starting on Mon02/22/23 at 1430, Until [place] 02/23/23 at 0029 Start Infusion 02/22/2023 1:24 PM EDT 500 mL 50 mL/hr sodium chloride 0.9 % flush central line 10 mL 10 mL, IV Push, PRN Other, IV Flush, Starting on Mon02/22/23 at 1324, Until [place] 02/23/23 at 1323, For 24 hours, Do not flush if lock, PICC, or central line not in place; IV infusing or unable to flush. Given 02/22/2023 2:57 PM EDT 10 mL Inactive Administered Medications - up to 3 most recent administrations Medication Order MAR Action Action Date Dose Rate Site Iron Sucrose (Venofer) 300 mg in NSS 250 mL ivpb 300 mg, IV Piggyback, ONCE, 1 dose, On Mon02/22/23 at 1500, Administer over 90 Minutes Start Infusion 02/22/2023 1:25 PM EDT 300 mg 166.67 mL/hr documented in this encounter Advance Directives Documents on File Type Date Recorded Patient Meat Stuffer Expl anation Advance Directives and Living Will 04/29/2021 ADVANCE DIRECTIVE / LIVING WILL LIVING WILL AND HEALTH CARE POA Power of Human Resources Professional 04/29/2021 [facility] [...] the patient have Health Care Power of Human Resources Professional? No Code Status History Code Status Date Activated Date Inactivated Comments Full Code 12/27/2021 2:50 PM 12/27/2021 8:02 PM This order reflects the patients wishes and were consensually agreed upon. Question Answer Comments Discussion of Advance Directives occurred with: Not Discussed Does the patient have a Living Will? No Does the patient have Health Care Power of Human Resources Professional? No Full Code 03/31/2021 8:57 PM 04/03/2021 [...] Agents on File Name Relationship Healthcare Agent [facility] p Communication Syed Bustos Spouse Emergency Contact Care Teams Practical Nurse Relationship Specialty Start Date End Date Vanita Dunn MD [address] [place] [phone] PCP - General Family Medicine 03/16/21 documented as of this encounter
--- OUTSIDE RECORDS SUMMARY | 2023-05-10 16:43 | External Medical Summary | Summary of Care ---
Author Name Unknown Organization [facility] Address [address] [facility] [place] [address] Phone [phone] Care Team Providers Care Document Advisor Name Role Phone Kojo Dunn MD Primary Care Provid er Reason for Visit * Reason Comments eRx-Medication Refill Encounter Details Date Type Department Care Team Description 02/17/2023 Refill [facility] [address] [place] [address] Kojo Dunn MD [address] [place] [address] Allergies Active Allergy Reactions Severity Noted Date Comments Adhesive Tape Itching 04/29/2020 Penicillins Rash 02/12/2008 Penicillin G 07/20/2018 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 documented as of this encounter (statuses as of 02/19/2023) Medications Medication Sig Dispensed Refills Start Date End Date Status nystatin (NYSTOP) [id number] UNIT/GM powder Apply topically to affected area 3 times a day. 60 g 1 10/16/19 20 Active Dexcom G6 General Maintenance Mechanic Device Use as directed. To test blood [...] 3 10/29/19 21 Active OneTouch Delica Plus [id number] TESTING once daily 100 Each 3 10/29/19 [...] [facility]) 35 Units at breakfast, 39 Units [...] food. 90 Tablet 3 01/02/20 23 Active Lactulose 10 GM/15ML Oral Solution (Constulose) TAKE 30G (45ML) BY MOUTH 3 TIMES DAILY 1200 mL 0 01/17/20 23 Active Lantus SoloStar 100 UNIT/ML Subcutaneous Solution Pen-injectorIndica tions:Type 2 diabetes mellitus with hemoglobin A1c goal of less than 8.0% (HCC) Inject 60 units subcutaneously at bedtime 45 mL 3 01/25/20 23 Active Nadolol 40 MG Oral Tablet (Corgard)Indicatio ns:HTN, goal below 140/90 TAKE 1 TABLET BY MOUTH DAILY 90 Tablet 3 01/27/20 23 Active Oxybutynin Chloride 5 MG [...] DAILY AMOUNT: 6 CAPSULES 360 Capsule 1 01/28/20 23 Active Escitalopram Oxalate 20 MG [...] 30 g 0 02/02/20 23 Active Fluticasone-Salmet jamye 250-50 MCG/ACT Inhalation Aerosol Powder Breath Activated (Advair Diskus) INHALE 1 PUFF BY MOUTH TWICE DAILY 180 Each 1 02/20/20 23 Active Isosorbide Mononitrate ER 30 MG Oral Tablet Extended Release 24 Hour (Imdur) TAKE 1 TABLET BY MOUTH DAILY 90 Tablet 1 02/20/20 23 Active metFORMIN HCl ER 500 MG Oral Tablet Extended Release 24 Hour (Glucophage XR) TAKE 1 TABLET BY MOUTH DAILY with food. 90 Tablet 1 02/20/20 23 Active Atorvastatin Calcium 80 MG Oral Tablet (Lipitor) TAKE 1 TABLET BY MOUTH EVERY DAY AT BEDTIME 90 Tablet 1 02/20/20 23 Active Budesonide-Formote rol Fumarate 160-4.5 MCG/ACT Inhalation Aerosol Inhale 2 Puffs by mouth in the morning and 2 Puffs before bedtime. 10.2 g 1 09/27/19 22 023 Discontinued(Dc dication List Clean Up) Atorvastatin Calcium 80 MG Oral Tablet (Lipitor) TAKE 1 TABLET BY MOUTH AT BEDTIME 90 Tablet 1 07/29/20 22 023 Discontinued metFORMIN HCl ER 500 MG Oral Tablet Extended Release 24 Hour (Glucophage XR) TAKE 1 TABLET EVERY DAY WITH A MEAL 90 Tablet 1 07/29/20 22 023 Discontinued Isosorbide Mononitrate ER 30 MG Oral Tablet Extended Release 24 Hour (Imdur) TAKE 1 TABLET BY MOUTH DAILY 90 Tablet 1 07/29/20 22 023 Discontinued Fluticasone-Salmet jayme 250-50 MCG/ACT Inhalation Aerosol Powder Breath Activated (Advair Diskus) INHALE 1 PUFF BY MOUTH 2 TIMES DAILY. 60 Each 0 11/24/19 23 023 Discontinued Hospital, Clinic, or Other [...] as of this encounter (statuses as of 02/19/2023) Active Problems Problem Noted Date Thrombocytopenia 01/17/2023 Hypertensive heart failure 11/21/2022 Major depressive disorder, recurrent, mo derate 11/01/2022 Last Assessment & Plan: Stable on Lexapro Generalized anxiety disorder 11/01/2022 Pancytopenia 04/29/2022 Chronic diastolic (congestive) heart jaymie mirellare 09/13/2021 Last Assessment & Plan: Current Status: [...] as of this encounter (statuses as of 02/19/2023) Resolved Problems Problem Noted Date Resolved Date [...] pancreas 02/15/2021 10/01/2021 AMS (altered mental status) 02/04/20212 05/2021 Cardiomegaly 01/30/2021 09/13/2021 SOB (shortness of [...] pain 01/24/2012 01/17/2017 Genetic Sleep Disorder Research Other*[id number] 05/13/2011 04/07/2016 Obstructive sleep apnea 01/18/2011 12/27/19 [...] as of this encounter (statuses as of 02/19/2023) Immunizations Name Administration Dates Next Due COVID-19 mRNA, LNP-s, No Pre serve, 2-Dose Series (Moderna) 01/05/2022,07/26/2021,12/21/2020,11/09 HEP A - Hepatitis A (Adult > 18 yrs) 09/24/2018, 03/26/2018 Hepatitis B, 20+ yrs 09/24/2018,04/23/2018,03/26 Pneumococcal Conjugate Vacc, 13 Valent (Prevnar) 05/02/2019 Pneumococcal Conjugate Vacci ne, 20-valent ([id number]) 10/21/2022 Pneumococcal Polysaccharide PPV23 (Pneumovax) 06/01/2010 Seasonal [...] encounter Miscellaneous Notes * Telephone Encounter - Lizzie Sanon Suh, [facility] - 02/19/2023 8:53 PM EDTSigned Prescriptions: Disp Refills Fluticasone-Salmeterol 250-50 MCG/ACT Inha*180 Ea*1 Sig: INHALE 1 PUFF BY MOUTH TWICE DAILYAuthorizing Provider: KOJO DUNN User: LIZZIE SUH Isosorbide Mononitrate ER 30 MG Oral Table*90 Tab*1 Sig: TAKE 1 TABLET BY MOUTH DAILYAuthorizing Provider: KOJO DUNN User: LIZZIE SUH metFORMIN HCl ER 500 MG Oral Tablet Extend*90 Tab*1 Sig: TAKE 1 TABLET BY MOUTH DAILY with food.Authorizing Provider: KOJO DUNN User: LIZZIE SUH Atorvastatin Calcium 80 MG Oral Tablet (Li*90 Tab*1 Sig: TAKE 1 TABLET BY MOUTH EVERY DAY AT BEDTIMEAuthorizing Provider: KOJO DUNN User: LIZZIE SUH * Telephone Encounter - Lizzie Suh [facility] - 02/19/2023 8:50 PM EDT Lipid panel previously ordered pending completion. Statin approved until next OV. Thank you, Lizzie Suh, PharmD Clinical Pharmacist [facility] ([facility]) (formally Telepharmacy) 02/19/23 8:53 PM [phone] * Telephone Encounter - Interface, [facility] - 02/19/2023 11:38 AM EDT Pending Prescriptions: Disp Refills Fluticasone-Salmeterol 250-50 MCG/ACT Inha* 0 Sig: INHALE 1 PUFF BY MOUTH TWICE DAILY Isosorbide Mononitrate ER 30 MG Oral Table*90 Tab*0 Sig: TAKE 1 TABLET BY MOUTH DAILY metFORMIN HCl ER 500 MG Oral Tablet Extend*90 Tab*0 Sig: TAKE 1 TABLET BY MOUTH DAILY with food. Atorvastatin Calcium 80 MG Oral Tablet [Ph*90 Tab*0 Sig: TAKE 1 TABLET BY MOUTH EVERY DAY AT BEDTIME documented in this encounter Plan of Treatment Upcoming Encounters Date Type Specialty Care Team Description 02/22/2023 Hem/Onc Treatment Hematology Oncology [place], Chair 10 Hem Onc [facility] [address] [place] [address] 02/22/2023 Office Visit Pharmacy Pharmacist1, [facility] [address] [facility] [address] 03/01/2023 PulmDiagnostic Pulmonary Function [place], [address] [place] [address] 03/09/2023 Home Visit [facility] July Poe RN [address] [place] [address] 04/19/2023 Office Visit Sleep Disorders Lanette Fields CRNP [address] [place] [address] 05/22/2023 Office Visit Gastroenterology Lyssa Stout CRNP [address] [place] [address] 06/27/2023 Office Visit Hematology Oncology Tono Sanchez MD [address] [place] [address] 07/31/2023 Office Visit Family Medicine Kojo Dunn MD [address] [place] [address] 10/04/2023 Office Visit Gynecology Obstetrics Renetta Martinez MD [address] [place] [address] Scheduled Procedures Name Priority Associated Diagnoses Date/Ti [...] this encounter Medical Devices Implanted Type Area Shove Up Device Identifier Shelf Expiration Date Model / Serial / Lot Microtech Sure Clip Implanted:Qty: 2 on 06/03/2020 by Janis Hatch DO at OR [facility] Clip N/A: Colon 04/21/2022 [facility]-F-26-2 35-C-R / / [id number] documented as of this encounter Advance Directives Documents on File Type Date Recorded 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 No Code Status History Code Status Date Activated Date Inactivated Comments Full Code 12/27/2021 2:50 PM 12/27/2021 8:02 PM This order reflects the patients wishes and were consensually agreed upon. Question Answer Comments Discussion of Advance Directives occurred with: Not Discussed Does the patient have a Living Will? No Does the patient have Health Care Power of Flight Line Service Attendant? No Full Code 03/31/2021 8:57 PM 04/03/2021 [...] Agents on File Name Relationship Healthcare Agent [facility] p Communication Syed Bustos Spouse Emergency Contact Care Teams Document Advisor Relationship Specialty Start Date End Date Kojo Dunn MD [address] [place] [facility] [place] [address] PCP - General Family Medicine 03/16/21 documented as of this encounter
--- OUTSIDE RECORDS SUMMARY | 2023-05-10 16:43 | External Medical Summary ---
Author Name Unknown Address Unknown Organization K01:[facility] [address] [place] [address] Laboratory Report Ordering Provider Test Date Status NITISH REYES V 02/22/2023 12:58:44 Final Observation Date Value Abnormality Reference (Units ) Status Triglyceride 02/22/2023 12:58:44 60 <=174 ( mg/dL) Final Performing Location LABORATORY [facility] - [address] [place] [address]
--- OUTSIDE RECORDS SUMMARY | 2023-05-10 16:43 | External Medical Summary ---
Author Name Unknown Address Unknown Organization K09:[facility]ATORY [place] [address] Laboratory Report Ordering Provider Test Date Status JACOB CORBETT 02/22/2023 12:58:44 Final Observation Date Value Abnormality Reference (Units ) Status WBC, Total 02/22/2023 12:58:44 3.94 Below low normal 4. 00-10.80 (K/uL) Final RBC 02/22/2023 12:58:44 2.93 3.85-5.15 (M/uL) Final Hemoglobin 02/22/2023 12:58:44 11.1 Below low normal 12 .0-15.3 (g/dL) Final HCT 02/22/2023 12:58:44 33.2 Below low normal 36. 0-45.2 (%) Final MCV 02/22/2023 12:58:44 113.3 81.5-97.5 (fL) Final MCH 02/22/2023 12:58:44 37.9 27.0-34.0 (pg) Final MCHC 02/22/2023 12:58:44 33.4 32.0-36.0 (g/dL) Final RDW 02/22/2023 12:58:44 17.1 11.5-15.5 (%) Final Platelets 02/22/2023 12:58:44 84 Below low normal 140 -400 (K/uL) Final MPV 02/22/2023 12:58:44 12.8 6.6-11.1 ( fL) Final Performing Location [facility]ATORY [place] [place] [address]
--- OUTSIDE RECORDS SUMMARY | 2023-05-10 16:44 | External Medical Summary | Summary of Care ---
Author Name Unknown Organization [facility] Address [address] [place] [address] Phone [phone] Care Team Providers Care Expense Clerk Name Role Phone Vanita Dunn MD Primary Care Provid er Reason for Visit * Reason Comments [facility]: Telehealth Encounter Details Date Type Department Care Team Description 02/16/2023 Telemedicine [facility], [facility] [address] [place] [facility] [place] [address] Emmy Aparicio CRNP [address] [place] [address] Garrett Bush, Community Health Shirt Finisher [address], [place] [id number] Restrictive lung disease* Allergies Active Allergy Reactions Severity Noted Date Comments Adhesive Tape Itching 04/29/2020 Penicillins Rash 02/12/2008 Penicillin G 07/20/2018 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 documented as of this encounter (statuses as of 02/16/2023) Medications Medication Sig Dispensed Refills Start Date End Date Status nystatin (NYSTOP) 510370 UNIT/GM powder Apply topically to affected area 3 times a day. 60 g 1 10/16/2019 Active Dexcom G6 Consultant Education Device Use as directed. To test blood sugars 4 times a day Dx E11.9 1 Each 0 09/14/2020 Active Dexcom G6 Transmitter Use as directed. To test blood sugars 4 times a day. Change every 90 days. Dx E11.9 1 Each 3 09/14/2020 Active OneTouch Verio In Vitro Strip (Glucose Blood) TESTING once daily 100 Strip 3 10/29/2020 Active OneTouch Delica Plus [id number] TESTING once daily 100 Each 3 10/29/2020 [...] DAILY DIRECTED 16 g 5 06/11/2021 Active Budesonide-Formoter ol Fumarate 160-4.5 MCG/ACT Inhalation Aerosol Inhale 2 Puffs by mouth in the morning and 2 Puffs before bedtime. 10.2 g 1 09/27/2021 Active Dexcom G6 Sensor use as directed [...] hemoglobin A1c goal of less than 7.0% ([facility]) inject 4.5mg (1 pen) under the skin [...] to wound 85 g 11 07/06/2022 Active Atorvastatin Calcium 80 MG Oral Tablet (Lipitor) TAKE 1 TABLET BY MOUTH AT BEDTIME 90 Tablet 1 07/29/2022 Active metFORMIN HCl ER 500 MG Oral Tablet Extended Release 24 Hour (Glucophage XR) TAKE 1 TABLET EVERY DAY WITH A MEAL 90 Tablet 1 07/29/2022 Active Isosorbide Mononitrate ER 30 MG Oral Tablet Extended Release 24 Hour (Imdur) TAKE 1 TABLET BY MOUTH DAILY 90 Tablet 1 07/29/2022 Active NovoLOG FlexPen 100 UNIT/ML Subcutaneous Solution [...] before bedtime. 360 Tablet 1 10/18/2022 Active Fluticasone-Salmete rol 250-50 MCG/ACT Inhalation Aerosol Powder Breath Activated (Advair Diskus) INHALE 1 PUFF BY MOUTH 2 TIMES DAILY. 60 Each 0 11/23/2022 Active Albuterol Sulfate (2.5 MG/3ML) 0.083% Inhalation [...] hemoglobin A1c goal of less than 8.0% ([facility]) Inject 60 units subcutaneously at bedtime 45 [...] TO ACCESSING. 30 g 0 02/01/2023 Active Hospital, Clinic, or Other Facility Administered [...] as of this encounter (statuses as of 02/16/2023) Active Problems Problem Noted Date Thrombocytopenia 01/17/2023 [...] as of this encounter (statuses as of 02/16/2023) Resolved Problems Problem Noted Date Resolved Date [...] Achilles tendinitis, right leg 04/08/2019 0 09/13/2021 [facility] resident 04/08/2019 05/02/2019 Ambulatory dysfunction 04/04/2019 2 Fall 04/04/2019 05/05/2020 Sprain of right ankle 04/04/2019 05/05/2020 Recurrent major depressive disorder, in partial remission 04/04/2019 11/08/2022 Overview: More recent Dx noted on PL Last Assessment & Plan: Seems very depressed about current situation. 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 if a nursing home plan is made -continue lexapro Generalized [...] pain 01/24/2012 01/17/2017 Genetic Sleep Disorder Research Other*[id number] 05/13/2011 04/07/2016 Obstructive sleep apnea 01/18/2011 12/27/19 [...] as of this encounter (statuses as of 02/16/2023) Immunizations Name Administration Dates Next Due COVID-19 mRNA, LNP-s, No Pre serve, 2-Dose Series (Moderna) 01/05/2022,07/26/2021,12/21/2020,11/09 HEP A - Hepatitis A (Adult > 18 yrs) 09/24/2018, 03/26/2018 Hepatitis B, 20+ yrs 09/24/2018,04/23/2018,03/26 Pneumococcal Conjugate Vacc, 13 Valent (Prevnar) 05/02/2019 Pneumococcal Conjugate Vacci ne, 20-valent ([id number]) 10/21/2022 Pneumococcal Polysaccharide PPV23 (Pneumovax) 06/01/2010 Seasonal [...] Sign Reading Time Taken Comments Blood Pressure 124/64 02/16/2023 12:44 PM EDT Pulse 64 02/16/2023 12:44 PM EDT Temperature 36.7 C (98 F) 02/16/2023 12:44 PM EDT Respiratory Rate 16 02/16/2023 12:44 PM EDT Oxygen Saturation 94% 02/16/2023 12:44 PM EDT Inhaled Oxygen Concentration - - [...] as of this encounter Progress Notes * ZAK Bowden - 02/16/2023 12:50 PM EDT Images from the original note were not included. [facility] Problem Oriented Charting Provider Visit Date: 02/16/2023 Time: 12:50 PM [facility] Sub-Program: Focused Care Management (3-9 months) [facility] Episode Start Date: Noted: 09/16/2021 Assessment and Plan #1 Restrictive lung disease Assessment & Plan: Denies breathing issues today but has had "bad days" Using advair daily and pulmicort inhaler on occasion Instructed on proper use of both inhalers. Verbalizes understanding Follow Up: Return in about 3 months (around 05/19/2023) for Video to Home. | For: Video to Home | Check-out note: Please help in scheduling the recommended follow up as listed below: [facility] AP (see care team) within approx 3 months for Telemedicine Visit F/u with Aleyda Campos PA-C Scheduled appointments in the next 60 days: Future Appointments-next 60 days Date/Time Provider Specialty Dept Phone 02/22/2023 1:00 PM Chair 10 Hem Onc [facility] Hematology Oncology [phone] 02/22/2023 2:00 PM [facility] Pharmacist1 Pharmacy [phone] 03/01/2023 1:00 PM [facility] [place] Pulmonary Function [phone] 03/09/2023 8:30 AM July Poe RN [facility] [phone] 04/19/2023 4:00 PM (Arrive by 3:45 PM) ZAK Rios Sleep Disorders [phone] 05/22/2023 1:30 PM (Arrive by 1:15 PM) ZAK Bolton Gastroenterology [phone] 06/27/2023 1:45 PM (Arrive by 1:30 PM) Tono Sanchez MD Hematology Oncology [phone] 07/31/2023 1:20 PM (Arrive by 1:05 PM) Vanita Dunn MD Family Medicine [phone] 10/04/2023 4:00 PM (Arrive by 3:45 PM) Renetta Martinez MD Gynecology Obstetrics [phone] A total of 20 minutes was spent face to face (via video-based telemedicine if designated as a telemedicine visit) Subjective Subjective Is this a Telemedicine Visit? Yes, Patient location: HOME. I was not in a hospital or clinic location. After connecting through televideo, patient was verified with two unique identifiers. Patient (or authorized legal disability representative) was then informed that this was a Telemedicine visit and being conducted confidentially over secure lines. Methods to assure confidentiality were taken. Patient acknowledged consent and understanding of privacy and security of the Telemedicine visit. The patient agreed to participate. Reason For [facility] Visit: Follow-Up Current Concerns: Shaina Bustos is a 67 year old female seen today for a [facility] provider visit. Today's concerns are: Restrictive lung disease-not taking Symbicort BID or pulmicort as ordered. Using HHN prn Additional Review of Systems Constitutional: Negative for appetite change, chills and fever. Respiratory: Positive for cough (productive at times) and shortness of breath (with activity). Cardiovascular: Positive for chest pain (on occasion). Gastrointestinal: Negative for constipation and diarrhea. Endocrine: Positive for cold intolerance. Genitourinary: Positive for hematuria (chronic). Objective Objective Vitals: 02/16/23 1244 Temp: 36.7 C (98 F) Pulse: 64 Resp: 16 SpO2: 94% BP: 124/64 Last Weights: Wt Readings from Last 3 Encounters: 01/24/23 113.4 kg (250 lb) 12/09/22 113.4 kg (250 lb) 10/13/22 113.4 kg (250 lb) Last BPs: BP Readings from Last 4 Encounters: 02/16/23 124/64 02/13/23 128/66 02/09/23 120/70 01/24/23 122/70 Physical Exam Constitutional: Appearance: She is obese. Cardiovascular: Rate and Rhythm: Normal rate and regular rhythm. Heart sounds: Murmur heard. Pulmonary: Effort: Pulmonary effort is normal. Breath sounds: Wheezing (inspiratory wheeze) present. Neurological: Mental Status: She is alert and oriented to person, place, and time. Psychiatric: Behavior: Behavior normal. Lab Review: I have reviewed the following results: Medication Review "Bottles Out" medication review not performed today due to done by RN with medication list reviewedand updated in the EMR as appropriate ZAK Ramírez 12:50 PM *Communication sent to PCP (via autofax if non-[facility]), [facility] Care Team members,relevant Specialty Care Physicians* * Garrett Bush [facility] Health Shirt Finisher - 02/16/2023 12:33 PM EDT Community Health Shirt Finisher Visit Date: 02/16/2023 Time: 12:33 PM Name: Shaina Bustos : 1955 Referral Source: manager of application development Source of Information: Patient Spoken language: Puerto Rican Patient can read in Puerto Rican: Yes. Welt Maker needed: No. COVID-19 screening completed: Yes Vitals: Vital signs completed: Yes, vital signs within normal range. BP 124/64 (BP Site: Left Arm, BP Position: Sitting, BP Cuff Size: Regular) | Pulse 64 | Temp 36.7 C (98 F) (Infrared ) | Resp 16 | SpO2 94% Condition Changes: Changes in health or social status since last visit: Pt reports no new concerns or questions at this time. The patient has new concerns since last visit: No Progress towards goals since last visit: Pt has been home and independent as possible. Medications: Medication review completed? Yes, no gaps identified Does the patient have barriers to medication adherence? No. Patient reports difficulty paying for medications or might in the future: No. Telehealth: This is a telehealth visit: Yes. Type of telehealth visit: Return/Routine Visit conducted with: Physician/AP Symptoms Surveys and Evaluations: [facility] completed this visit: No. Last flowsheet values for [facility]: Age 65+: 1 (11/21/2022 2:00 PM) Diagnosis (3 or more co-existing): 1 (11/21/2022 2:00 PM) Prior history of falls within 3 months: 0 (11/21/2022 2:00 PM) Incontinence: 1 (11/21/2022 2:00 PM) Visual impairment: 1 (11/21/2022 2:00 PM) Impaired functional mobility: 1 (11/21/2022 2:00 PM) Environmental hazards: 1 (11/21/2022 2:00 PM) Poly Pharmacy (4 or more prescriptions - any type): 1 (11/21/2022 2:00 PM) Pain affecting level of function: 0 (11/21/2022 2:00 PM) Cognitive impairment: 1 (11/21/2022 2:00 PM) Score - a score of 4 or more is considered at risk for fallin (11/21/2022 2:00 PM) Patient has had home health services in the past: No Social Determinants of Health: Safety: o Patient reports feeling unsafe in their home: No. Housing: o Patient reports they are at risk of becoming homeless: No. Home/Living situation: o Patient lives alone: No, o Bathroom is located 1st floor o Bedroom is located 1st floor o Patient has to go up and down steps: No. Patient receives help from family/friends/neighbors/community agencies etc.: Yes. Type of help the patient receives: helps. Patient perceives the help they receive as adequate: o No. Specify plan/referrals/care team members notified: Caregivers start on Monday DME: o DME used: Wheelchair, O2, Hospital bed and Bedside commode o Patient has concerns related to DME: No. Financial: o Patient reports experiencing a financial hardship: No. Employment: o Patient is unemployed or without regular income: No. Utilities: o Patient reports difficulty paying heating, water, or electric bill: No. Transportation: o Patient drives: No. o Does anyone drive patient to appointments and shopping? Yes. o Patient receives community or public transportation assistance: No. o Patient reports trouble getting a ride to medical visits or work: Never True. Clothing: o Patient reports being unable to get clothing when it was really needed: No. Food insecurity: o Patient has concerns surrounding meals/food: No. o Within the past 12 months patient worried food would run out before having money to buy more: Never True. o Within the past 12 months the food patient bought did not last and did not have money to get more: Never True o Food is needed for this week: No. Caregiver/Childcare: o Patient feels overwhelmed with taking care of a child, family member or friend: No. o If caregiver is present, patient reports adequate support: Yes. Connections: o How often do you feel lonely or isolated from those around you? Never. Plan: Reinforced patient's three red flags by the care team 1. Increased cough with yellow or green sputum 2. Lethargy, sleeping more 3. No bowel movement in 24 hours Pts goals of care 1. Remain in home 2. Have a junior net developer cg 3. Get out more Follow Up: Patient encouraged to call the intake phone number for all urgent but not emergent issues. Scheduled to follow up with patient as needed and scheduled. [facility] 02/16/2023 12:33 PM documented in this encounter Miscellaneous Notes * Assessment & Plan Note - ZAK Bowden - 02/16/2023 1:17 PM EDT Associated Problem(s): Restrictive lung disease Denies breathing issues today but has had "bad days" Using advair daily and pulmicort inhaler on occasion Instructed on proper use of both inhalers. Verbalizes understanding documented in this encounter Plan of Treatment Upcoming Encounters Date Type Specialty Care Team Description 02/22/2023 Hem/Onc Treatment Hematology Oncology [place], Chair 10 Hem Onc [facility] [address] [place] [address] 02/22/2023 Office Visit Pharmacy Pharmacist1, [facility] [address] [place] [address] 03/01/2023 PulmDiagnostic Pulmonary Function [place], [address] [place] [phone] 03/09/2023 Home Visit [facility] July Poe RN [address] [place] [address] 04/19/2023 Office Visit Sleep Disorders Lanette Fields CRNP [address] [place] [address] 05/22/2023 Office Visit Gastroenterology Lyssa Stout CRNP [address] [place] [address] 06/27/2023 Office Visit Hematology Oncology Tono Sanchez MD [address] [place] [address] 07/31/2023 Office Visit Family Medicine Vanita Dunn MD [address] [place] [address] 10/04/2023 Office Visit Gynecology Obstetrics Renetta Martinez MD [address] [place] [address] Scheduled Procedures Name Priority Associated Diagnoses Date/Ti [...] 07/27/2020, 12/09/2015, 10/20/2014 COVID-19 Vaccine (5 - Booster for Moderna series) 03/02/2022 01/05/2022, 07/26/2021, 12/21/2020, Additional [...] this encounter Medical Devices Implanted Type Area New Car Salesperson Device Identifier Shelf Expiration Date Model / Serial / Lot Microtech Sure Clip Implanted:Qty: 2 on 06/03/2020 by Janis Hatch, at OR [facility] Clip N/A: Colon 04/21/2022 [facility]-F-26-2 35-C-R / / [id number] documented as of this encounter Visit Diagnoses Diagnosis Restrictive lung disease- Primary Other diseases of lung, not elsewhere classified documented in this encounter Advance Directives Documents on File Type Date Recorded Patient Generation Technologist Expl anation Advance Directives and Living Will 04/29/2021 ADVANCE DIRECTIVE / LIVING WILL LIVING WILL AND HEALTH CARE POA Power of Engineer Steam 04/29/2021 POWER OF A [facility] [...] the patient have Health Care Power of Engineer Steam? No Code Status History Code Status Date Activated Date Inactivated Comments Full Code 12/27/2021 2:50 PM 12/27/2021 8:02 PM This order reflects the patients wishes and were consensually agreed upon. Question Answer Comments Discussion of Advance Directives occurred with: Not Discussed Does the patient have a Living Will? No Does the patient have Health Care Power of Engineer Steam? No Full Code 03/31/2021 8:57 PM 04/03/2021 [...] Syed Bustos Spouse Emergency Contact Care Teams Expense Clerk Relationship Specialty Start Date End Date Vanita Dunn MD [address] [place] [address] PCP - General Family Medicine 03/16/21 documented as of this encounter
--- OUTSIDE RECORDS SUMMARY | 2023-05-10 16:46 | External Medical Summary | Summary of Care ---
Author Name Unknown Organization [facility] Address [address] [place] [address] Phone [phone] Care Team Providers Care Labor And Delivery Nurse Name Role Phone Vanita Dunn MD Primary Care Provid er Reason for Visit * Precert (Within 24 hrs (call dept; emergent)) - Not Required [facility] Specialty Diagnoses / Procedures Referred By Evangelina t Referred To Contact Radiology Diagnoses New abnormality on chest x-ray Procedures CT CHEST W CONTRAST CT CHEST W WO CONTRAST Josh Main PA-C [address] [place] [address] Referral ID Status Reason Start Date Expiration Date V isits Requested Visits Authorized [id number] Not Required [facility] 01/26/2023 999 999 Encounter Details Date Type Department Care Team Description 02/02/2023 Hospital Encounter Radiology, [facility] [address] [place] [address] Arrived Allergies Active Allergy Reactions Severity Noted Date Comments Adhesive Tape Itching 04/29/2020 Penicillins Rash 02/12/2008 Penicillin G 07/20/2018 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 documented as of this encounter (statuses as of 02/03/2023) Medications Medication Sig Dispensed Refills Start Date End Date Status nystatin (NYSTOP) 526040 UNIT/GM powder Apply topically to affected area 3 times a day. 60 g 1 10/16/2019 Active Dexcom G6 Supervisor Forming And Tempering Device Use as directed. To test blood sugars 4 times a day Dx E11.9 1 Each 0 09/14/2020 Active Dexcom G6 Transmitter Use as directed. To test blood sugars 4 times a day. Change every 90 days. Dx E11.9 1 Each 3 09/14/2020 Active OneTouch Verio In Vitro Strip (Glucose Blood) TESTING once daily 100 Strip 3 10/29/2020 Active OneTouch Delica Plus [id number] TESTING once daily 100 Each 3 10/29/2020 [...] goal of less than 7.0% ([facility]) USE TO INJECT INSULIN FOUR TIMES DAILY. 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 Oxygen stable. -continue Advair. Was only using once per day. Encouraged to use twice per day. Also encouraged to use nebulizers every 6 hours today. Patient patient's in agreement. Type 2 diabetes mellitus with hemoglobin A1c [...] as of this encounter (statuses as of 02/03/2023) Resolved Problems Problem Noted Date Resolved Date [...] situation. 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 if a terminal operations supervisor plan is made -continue lexapro Generalized weakness [...] pain 01/24/2012 01/17/2017 Genetic Sleep Disorder Research Other*[id number] 05/13/2011 04/07/2016 Obstructive sleep apnea 01/18/2011 12/27/19 [...] as of this encounter (statuses as of 02/03/2023) Immunizations Name Administration Dates Next Due COVID-19 mRNA, LNP-s, No Pre serve, 2-Dose Series (Moderna) 01/05/2022,07/26/2021,12/21/2020,11/09 HEP A - Hepatitis A (Adult > 18 yrs) 09/24/2018, 03/26/2018 Hepatitis B, 20+ yrs 09/24/2018,04/23/2018,03/26 Pneumococcal Conjugate Vacc, 13 Valent (Prevnar) 05/02/2019 Pneumococcal Conjugate Vacci ne, 20-valent ([id number]) 10/21/2022 Pneumococcal Polysaccharide PPV23 (Pneumovax) 06/01/2010 Seasonal [...] Encounters Date Type Specialty Care Team Description 02/09/2023 Home Visit [facility] July Poe RN [address] [place] [address] 02/14/2023 Office Visit Gastroenterology Lyssa Stout CRNP [address] [place] [address] 02/16/2023 [facility]medicine [facility] [address] [facility] [address] Garrett Bush, Community Health Occupational Therapist Home Based [address] [place] [address] 02/22/2023 Hem/Onc Treatment Hematology Oncology [place], Chair 10 Hem Onc Sc[place] [address] [facility] [place] [address] 02/22/2023 Office Visit Pharmacy Pharmacist1, [facility] [address] [facility] [place] [address] 03/01/2023 PulmDiagnostic Pulmonary Function [place], [address] [place] [address] 06/27/2023 Office Visit Hematology Oncology Tono Sanchez MD [address] [place] [address] 07/31/2023 Office Visit Family Medicine Vanita Dunn MD [address] [place] [address] 10/04/2023 Office Visit Gynecology Obstetrics Renetta Martinez MD [address] [place] [address] Scheduled Procedures Name Priority Associated Diagnoses Date/Ti [...] this encounter Medical Devices Implanted Type Area Administration Assistant Device Identifier Shelf Expiration Date Model / Serial / Lot Microtech Sure Clip Implanted:Qty: 2 on 06/03/2020 by Janis Hatch DO at OR [facility] Clip N/A: Colon 04/21/2022 [facility]-F-26-2 35-C-R / / [id number] documented as of this encounter Procedures Procedure Name Priority Date/Time Associated Diagnosis Comments CT CHEST W CONTRAST STAT 02/02/2023 1 :50 PM EDT New abnormality on chest x-ray documented in this encounter Administered Medications Inactive Administered Medications - up to 3 most recent administrations Medication Order MAR Action Action Date Dose Rate Site Ioversol (Optiray 320) inj 100 mL 100 mL, Intravenous, ONCE, On [place] 02/02/23 at 1353, For 1 dose, Radiology Medication Routing (Non-IR) Given 02/02/2023 1:53 PM EDT 100 mL documented in this encounter Advance Directives Documents on File Type Date Recorded Patient Chucker Expl anation Advance Directives and Living Will 04/29/2021 ADVANCE DIRECTIVE / LIVING WILL LIVING WILL AND HEALTH CARE POA Power of Tmd Teacher 04/29/2021 [facility]OWER [facility] A [facility] [...] the patient have Health Care Power of Tmd Teacher? No Code Status History Code Status Date Activated Date Inactivated Comments Full Code 12/27/2021 2:50 PM 12/27/2021 8:02 PM This order reflects the patients wishes and were consensually agreed upon. Question Answer Comments Discussion of Advance Directives occurred with: Not Discussed Does the patient have a Living Will? No Does the patient have Health Care Power of Tmd Teacher? No Full Code 03/31/2021 8:57 PM 04/03/2021 [...] on File Name Relationship Healthcare Agent [facility] Communication Syed Bustos Spouse Emergency Contact Care Teams Labor And Delivery Nurse Relationship Specialty Start Date End Date Vanita Dunn MD [address] [place] [phone] PCP - General Family Medicine 03/16/21 documented as of this encounter
--- OUTSIDE RECORDS SUMMARY | 2023-05-10 16:46 | External Medical Summary | Summary of Care ---
Author Name Unknown Organization [facility] Address [address] [facility] [place] [address] Phone [phone] Care Team Providers Care Detective Sergeant Name Role Phone Vanita Dunn MD Primary Care Provid er Reason for Visit * Reason Comments Follow Up Hepatic cirrhosis, N AFLD Encounter Details Date Type Department Care Team Description 02/13/2023 Office Visit Gastroenterology, [facility] [address] [place] [address] Lyssa Stout CRNP [address] [place] [address] Cirrhosis of liver without ascites, unspecified hepatic cirrhosis type (HCC)* Allergies Active Allergy Reactions Severity Noted Date Comments Adhesive Tape Itching 04/29/2020 Penicillins Rash 02/12/2008 Penicillin G 07/20/2018 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 documented as of this encounter (statuses as of 02/13/2023) Medications Medication Sig Dispensed Refills Start Date End Date Status nystatin (NYSTOP) 952969 UNIT/GM powder Apply topically to affected area 3 times a day. 60 g 1 10/16/2019 Active Dexcom G6 Inspector Weights And Measures Device Use as directed. To test blood sugars 4 times a day Dx E11.9 1 Each 0 09/14/2020 Active Dexcom G6 Transmitter Use as directed. To test blood sugars 4 times a day. Change every 90 days. Dx E11.9 1 Each 3 09/14/2020 Active OneTouch Verio In Vitro Strip (Glucose Blood) TESTING once daily 100 Strip 3 10/29/2020 Active OneTouch Delica Plus [id number] TESTING once daily 100 Each 3 10/29/2020 [...] hemoglobin A1c goal of less than 7.0% ([facility]) inject 4.5mg (1 pen) under the skin [...] hemoglobin A1c goal of less than 8.0% ([facility]) Inject 60 units subcutaneously at bedtime 45 mL 3 01/24/2023 Active Nadolol 40 MG Oral Tablet (Corgard)Indication s:HTN, goal below 140/90 TAKE 1 TABLET BY MOUTH DAILY 90 Tablet 3 01/26/2023 Active Oxybutynin Chloride 5 MG Oral Tablet (Ditropan)Indicatio ns: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,Other cerebral palsy ([facility]) TAKE 1 TABLET BY MOUTH TWICE DAILY [...] as of this encounter (statuses as of 02/13/2023) Active Problems Problem Noted Date Thrombocytopenia 01/17/2023 [...] as of this encounter (statuses as of 02/13/2023) Resolved Problems Problem Noted Date Resolved Date [...] pain 01/24/2012 01/17/2017 Genetic Sleep Disorder Research Other*[id number] 05/13/2011 04/07/2016 Obstructive sleep apnea 01/18/2011 12/27/19 [...] as of this encounter (statuses as of 02/13/2023) Immunizations Name Administration Dates Next Due COVID-19 mRNA, LNP-s, No Pre serve, 2-Dose Series (Moderna) 01/05/2022,07/26/2021,12/21/2020,11/09 HEP A - Hepatitis A (Adult > 18 yrs) 09/24/2018, 03/26/2018 Hepatitis B, 20+ yrs 09/24/2018,04/23/2018,03/26 Pneumococcal Conjugate Vacc, 13 Valent (Prevnar) 05/02/2019 Pneumococcal Conjugate Vacci ne, 20-valent ([id number]) 10/21/2022 Pneumococcal Polysaccharide PPV23 (Pneumovax) 06/01/2010 Seasonal [...] Sign Reading Time Taken Comments Blood Pressure 128/66 02/13/2023 1:10 PM EDT Pulse 65 02/13/2023 1:10 PM EDT Temperature 36.7 C (98.1 F) 02/13/2023 1:10 PM ED T Respiratory Rate - - Oxygen Saturation - - Inhaled Oxygen Concentration - - Weight - [...] of this encounter Progress Notes * ZAK Bolton - 02/13/2023 1:35 PM EDT DATE OF SERVICE: 02/13/23 REFERRING PHYSICIAN: Rajwinder Carter DO CC: F/U NG cirrhosis HPI: 02/13/23: Pt c/o heartburn after eating. Denies food triggers. No dysphagia, n/v, abd pain. Bowels move every other day wo soft stools wo rectal bleeding. Denies dizziness, HAs, CP, SOB. 12/06/22: Pt denies abd pain, n/v. Notices small amt of hematochezia infrequently, blood ct stable. 08/30/22: Patient has been having headaches and vertigo symptoms, also getting nasal congestion. She is seeing Family Medicine this afternoon. She denies any chest pain, shortness of breath, abdominal pain, nausea or vomiting. Bowels move regularly. No signs of rectal bleeding or dark tarry stools. 04/28/22: Patient report that she occasionally gets constipated. On Linzess daily however he may give her an additional dose of lactulose to help her move her bowels. When she gets constipated she may have bilateral lower abdominal this comfort. No chest pain, shortness of breath. She is having some productive cough but no sore throat fevers or chills. She denies any nausea or vomiting, no abdominal pain currently. 12/23/21:Pt is still having vaginal bleeding and ? Hematuria. She is getting hysteroscopy exam on Monday. She denies abd pain, n/v. Bowels moving daily. Not taking Linzess but still on Lactulose. Unsure if she has rectal bleeding or not. Blood ct stable. She gets Venofer IV routinely. 09/14/21: Patient reports having hematuria and shoulder pain, had just been seen by Dr. Herring in Family Practice this morning. She reports that she was having lots of loose stools on lactulose however noted that she is also on Linzess, Dulcolax, senna Plus docusate sodium. has discontinue her lactulose. She is now having 2 formed bowel movements a day. She denies feeling confused, no asterixis noted. She denies having any abdominal pain, nausea, vomiting, jaundice or increased swelling of her legs. Also denies any signs or symptoms of GI bleeding such as hematemesis or dark tarry stools 05/11/2021 (seen by [facility] Hepatology, Dr. 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 She was recently admitted to [facility] 03/07/21-03/11/21 with chest/epigastric pain. She was noted to have AoC anemia with Hgb around 7's, baseline 11 without signs of active bleeding. She underwent EGD 03/10/21 showing PHG and erythema within the gastric antrum. She is here today for follow up care of her NG cirrhosis. Overall doing well. No acute issues today. Eating fine. No abd pain, N/V. Currently taking lasix 40mg daily and spironolactone 12.5 mg daily. does endorse leg swelling but unchanged over the last few months. Denies any paracentesis in the past. Denies any confusion episodes. 01/21/21: Pt report BRBPR at last BM but had hard stools. Denies abd pain, n/v, cramping. 09/23/20: Pt voices no concerns today. She is getting IV Venofer transfusions. She denies increasedSOB, CP, abd pain, distension. Leg edema same. No GI bleeding symptoms. 07/27/2020 -Shaina Bustos is 65 yr old female pt w Hx of CP, NG cirrhosis, DM- 2, hypothyroidism, Sleep apnea on CPAP, anemia, constipation who is here for f/u. She is c/o mostly of R sided abd pain.Pain not associated w eating and she reports bowels move daily. No signs of dark tarry stools or rectal bleeding. No n/v. She recently had UTI and repeat urine cx was negative. She has mild burning after urination but otherwise no flank pain. No n/v, or changes in appetite. Of note she had recent EGD/colonoscopy done 06/03 for anemai, noted to have erosive esophatitis, ? Pill esophagitis, grade II varices, gastritis. Colon polyps (TAs), internal hemorrhoids. EGD 08/05/2020: - Normal esophagus. - A large amount of food (residue) in the stomach. - No specimens collected. EGD/Colonoscopy 06/03/2020: - One 5 mm polyp in the ascending colon, removed with a cold snare. Resected and retrieved. - One 10 mm polyp in the ascending colon, removed with a hot snare. Resected and retrieved. Clip (MR conditional) was placed. - One 4 mm polyp at the splenic flexure, removed with a cold snare. Resected and retrieved. Clip (MR conditional) was placed. - One 5 mm polyp in the sigmoid colon, removed with a hot snare. Resected and retrieved. - Internal hemorrhoids. - The examination was otherwise normal. - Severe erosive esophagitis. Biopsied. Cells for cytology obtained. This could represent a candidal infection or perhaps injury from impaction of a medication. - Non-bleeding grade II esophageal varices. - Gastritis. Biopsied. - Normal examined duodenum. A. Stomach, biopsy: -Benign gastric mucosa with mild chronic inflammation. B. Esophagus, biopsy: -Benign, denuded, squamous epithelium with increased acute inflammation. -Fragments of pigmented, inorganic material. C. Ascending colon, polyps: -Tubular adenomas. D. Left colon, polyps: -Tubular adenomas. Colonoscopy attempt on 03/17/[address] Fernando - with very poor prep: - She has an extremely difficulty body habitus requiring a lift and a poor prep - Her last colonoscopy was in 2017. - Her anemia is now a macrocytic anemia without evidence of iron deficiency per ferritin values. - Extremely low threshold to recall for a colonoscopy in my opinion. EGD 11/27/19: - Non-bleeding grade I esophageal varices. - Portal hypertensive gastropathy. - Gastritis. - Normal examined duodenum. - No specimens collected. Colonoscopy 04/21/2009: The colon is normal. Past Medical History: Diagnosis Date Anemia Anxiety and depression Arthritis Aspiration pneumonia (HCC) 11/01/2022 Cerebral palsy (HCC) 01/24/2012 Chronic constipation Chronic diastolic (congestive) heart failure (HCC) 09/13/2021 Chronic hypoxemic respiratory failure ([facility]) 04/08/2019 Chronic pain 03/27/2012 Cirrhosis of liver (HCC) 11/20/2017 Constipation 05/02/2012 Noted in 2011 Historical DDD (degenerative disc disease), lumbar DM type 2, goal A1c below 7 Dyslipidemia Dyslipidemia, goal LDL below 70 Fibromyalgia GERD (gastroesophageal reflux disease) HTN (hypertension) Hypertensive heart disease with congestive heart failure ([facility]) 04/29/2022 More specified code listed on PL I13.0 Hypothyroidism Intermittent asthma with reliever use up to twice per week 01/09/2013 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 12/27/2010 Lymphedema 03/11/2013 MEDICATION USE AGREEMENT 03/27/2012 03/27/12 Myalgia and myositis 03/27/2012 NG (nonalcoholic steatohepatitis) 05/02/2012 Neuropathy Other specified infantile cerebral palsy Oxygen dependent 04/08/2019 Primary insomnia 04/04/2019 Recurrent major depressive disorder, in partial remission ([facility]) 04/04/2019 More recent Dx noted on PL Restrictive lung disease 12/2014 Sleep apnea CPAP Sleep apnea, obstructive Sleep disturbance 01/24/2012 Type 2 diabetes mellitus with hemoglobin A1c goal of less than 8.0% ([facility]) 09/26/2013 ICD-10 update of inactive term UTI (urinary tract infection) 01/27/2012 Noted in 2011 historical Venous insufficiency 01/09/2009 duplicate Family History Problem Relation Age of Onset Heart Disorder Father of [place] at age 61 Diabetes Father Heart Disorder Mother of [place] age 72 Heart Disorder Sister Mi at age 46 Hypertension Sister Cancer No significant family history Arthritis No significant family history Mental Disorder No significant family history Stroke No significant family history Past Surgical History: Procedure Laterality Date BONE DEBRIDEMENT, FIRST 20 CM2 Right 04/16/2020 DEBRIDEMENT SKIN SUBCUTANEOUS TISSUE MUSCLE AND BONE performed by Josh Vazquez MD at OR [facility] DELIVERY 04/20/1982 COLONOSCOPY 04/21/2009 repeat in 10 years COLONOSCOPY, DIAGNOSTIC (RECTUM) 10/04/2016 normal bx, repeat 10 yrs/[facility] COLONOSCOPY, DIAGNOSTIC (RECTUM) N/A 06/03/2020 internal hemorrhoids/biopsies show adenomatous polyps/recall 5 years/COLONOSCOPY FLEXIBLE PROXIMAL DIAGNOSTIC performed by Janis Hatch DO at OR [facility] COLONOSCOPY, DIAGNOSTIC (RECTUM) 03/17/2020 poor prep / [facility] DENTAL SURGERY PROCEDURE NEC wisdom teeth x 4 DILATION AND CURETTAGE (D&C) EGD, FLEXIBLE, DIAGNOSTIC 10/04/2016 gastritis/[facility] EGD, FLEXIBLE, DIAGNOSTIC 01/11/2018 eso varices, retained food, repeat 1 yr/[facility] EGD, FLEXIBLE, DIAGNOSTIC N/A 06/03/2020 severe erosive esophagitis/non-bleeding grade II esophageal varices/gastritis/biopsies show inflammatory changes/repeat 3-4 months/ESOPHAGOGASTRODUODENOSCOPY (EGD), FLEXIBLE, TRANSORAL, DIAGNOSTIC per formed by Janis Hatch DO at [facility] EGD, FLEXIBLE, DIAGNOSTIC 11/27/2019 eso varices, portal hypertensive gastropathy, gastritis / [facility] EGD, FLEXIBLE, DIAGNOSTIC N/A 08/05/2020 large amount of food in stomach/repeat 1.5 years/ESOPHAGOGASTRODUODENOSCOPY (EGD), FLEXIBLE, TRANSORAL, DIAGNOSTIC performed by Janis Hatch DO at [facility] EGD, FLEXIBLE, DIAGNOSTIC N/A 03/10/2021 ESOPHAGOGASTRODUODENOSCOPY (EGD), FLEXIBLE, TRANSORAL, DIAGNOSTIC performed by Kris Blankenship MD at ENDOSCOPY [facility] HYSTEROSCOPY W/BIOPSY AND/OR POLYPECTOMY W/WO D&C N/A 12/27/2021 HYSTEROSCOPY WITH BIOPSY AND/OR POLYPECTOMY WITH OR WITHOUT D&C performed by Concetta Khan MD at OR [facility] HYSTEROSCOPY W/BIOPSY AND/OR POLYPECTOMY W/WO D&C N/A 02/14/2022 HYSTEROSCOPY WITH BIOPSY AND/OR POLYPECTOMY WITH OR WITHOUT D&C performed by Concetta Khan MD at OR [facility] INSERT INTRAUTERINE DEVICE (IUD) N/A 02/14/2022 INSERTION OF INTRAUTERINE DEVICE performed by Concetta Khan MD at OR [facility] IR VENOUS ACCESS MEDIPORT 10/05/2020 PELVIS/HIP JOINT SURGERY NEC teenager aid in walking REMOVE CERVIX CONE W/LOOP ELECTRODE N/A 12/27/2021 LOOP ELECTROSURGERY EXCISION PROCEDURE performed by Concetta Khan MD at OR [facility] REPAIR/GRAFT ACHILLES TENDON age 40 aid in walking Social History Tobacco Use Smoking status: Never Smokeless tobacco: Never Vaping Use Vaping Use: Never used Substance Use Topics Alcohol use: Not Currently Comment: rare Drug use: No Comment: too much soda Review of patient's allergies indicates: Allergen Reactions Adhesive Tape Itching Pcn [Penicillins] Rash Penicillin G Perflutren Protein A Microsph Definity-lower back pain Current Outpatient Medications Medication Sig Dispense Refill nystatin (NYSTOP) 474966 UNIT/GM powder Apply topically to affected area 3 times a day. 60 g 1 Dexcom G6 Inspector Weights And Measures Device Use as directed. To test blood sugars 4 times a day Dx E11.9 1 Each 0 Dexcom G6 Transmitter Use as directed. To test blood sugars 4 times a day. Change every 90 days. Dx E11.9 1 Each 3 OneTouch Verio In Vitro Strip (Glucose Blood) TESTING once daily 100 Strip 3 OneTouch Delica Plus Crxmol50C TESTING once daily 100 Each 3 Nitroglycerin 0.4 MG Sublingual Tablet Sublingual (Nitrostat) Place 1 Tab under the tongue every 5 minutes as needed for Pain, Chest. up to 3 doses in 15 minutes 25 Tab 11 BiPAP every night at bedtime. MEDICAL INSTRUCTIONS Please de-access patient's port. Please flush with 10 mL of NS, followed by 500 units (5 mL) of heparin. 1 Each N/A Docusate Sodium 100 MG Oral Capsule (Colace) TAKE 1 CAPSULE BY MOUTH ONCE DAILY 68 Cap 0 Fluticasone Propionate 50 MCG/ACT Nasal Suspension (Flonase) USE 2 SPRAYS IN EACH NOSTRIL ONCE DAILY DIRECTED 16 g 5 Budesonide-Formoterol Fumarate 160-4.5 MCG/ACT Inhalation Aerosol Inhale 2 Puffs by mouth in the morning and 2 Puffs before bedtime. 10.2 g 1 Dexcom G6 Sensor use as directed to test blood sugar 4 times daily. change sensor every 10 days3 Each 3 Disposable Brief X-Large Use as directed 60 Each 5 Trulicity 4.5 MG/0.5ML Subcutaneous Solution Pen-injector (Dulaglutide) inject 4.5mg (1 pen) under the skin once weekly 6 mL 5 Spironolactone 25 MG Oral Tablet (Aldactone) Take by mouth 2 Tablets in the morning. 180 Tablet3 traZODone HCl 50 MG Oral Tablet (Desyrel) TAKE 1 TABLET BY MOUTH AT BEDTIME 90 Tablet 3 Levothyroxine Sodium 150 MCG Oral Tablet (Levoxyl) Take by mouth 1 Tablet in the morning. (at least 30 min prior to breakfast or other meds). 30 Tablet 11 BD Pen Needle Mini U/F 31G X 5 MM (Insulin Pen Needle) USE TO INJECT INSULIN FOUR TIMES DAILY. 400 Each 3 Silver sulfADIAZINE 1 % External Cream (Silvadene) Apply topically to affected area daily . Apply to wound 85 g 11 Atorvastatin Calcium 80 MG Oral Tablet (Lipitor) TAKE 1 TABLET BY MOUTH AT BEDTIME 90 Tablet 1 metFORMIN HCl ER 500 MG Oral Tablet Extended Release 24 Hour (Glucophage XR) TAKE 1 TABLET EVERY DAY WITH A MEAL 90 Tablet 1 Isosorbide Mononitrate ER 30 MG Oral Tablet Extended Release 24 Hour (Imdur) TAKE 1 TABLET BY MOUTH DAILY 90 Tablet 1 NovoLOG FlexPen 100 UNIT/ML Subcutaneous Solution Pen-injector 35 Units at breakfast, 39 Units before lunch, 45 Units before supper 120 mL 3 Furosemide 20 MG Oral Tablet (Lasix) TAKE 1 TABLET BY MOUTH DAILY as needed for lower extremityswelling 90 Tablet 3 Pantoprazole Sodium 20 MG Oral Tablet Delayed Release (Protonix) Take 2 Tablets by mouth in themorning and 2 Tablets before bedtime. 360 Tablet 1 Fluticasone-Salmeterol 250-50 MCG/ACT Inhalation Aerosol Powder Breath Activated (Advair Diskus) INHALE 1 PUFF BY MOUTH 2 TIMES DAILY. 60 Each 0 Albuterol Sulfate (2.5 MG/3ML) 0.083% Inhalation Nebulization Solution (Proventil) Inhale 1 Vial via nebulizer every 6 hours as needed for Wheezing. 120 mL 1 Aspirin Low Dose 81 MG Oral Tablet Chewable (aspirin) CHEW AND SWALLOW 1 TABLET BY MOUTH DAILY 30 Tablet 5 Cetirizine HCl 10 MG Oral Tablet (ZyrTEC) Take 0.5 Tablets by mouth in the morning. 30 Tablet 2 Benzonatate 200 MG Oral Capsule Take 1 Capsule by mouth 3 times a day as needed for Cough. 30 Capsule 1 Linzess 290 MCG Oral Capsule (linaCLOtide) TAKE 1 CAPSULE BY MOUTH once DAILY before breakfast 90 Capsule 3 Potassium Chloride ER 10 MEQ Oral Tablet Extended Release Take by mouth 1 tablet in the morningwith food. 90 Tablet 3 Lactulose 10 GM/15ML Oral Solution (Constulose) TAKE 30G (45ML) BY MOUTH 3 TIMES DAILY 1200 mL 0 Lantus SoloStar 100 UNIT/ML Subcutaneous Solution Pen-injector Inject 60 units subcutaneously at bedtime 45 mL 3 Nadolol 40 MG Oral Tablet (Corgard) TAKE 1 TABLET BY MOUTH DAILY 90 Tablet 3 Oxybutynin Chloride 5 MG Oral Tablet (Ditropan) TAKE 1 TABLET BY MOUTH TWICE DAILY 180 Tablet 1 Gabapentin 300 MG Oral Capsule (Neurontin) TAKE 1 CAPSULE BY MOUTH IN THE MORNING, 1 CAPSULE MIDDAY, 2 CAPSULES IN THE EVENING. MAY TAKE AN EXTRA DOSE IN THE MORNING AND MIDDAY IF NEEDED FOR PAIN. MAX DAILY AMOUNT: 6 CAPSULES 360 Capsule 1 Escitalopram Oxalate 20 MG Oral Tablet (Lexapro) TAKE 1 TABLET BY MOUTH DAILY 90 Tablet 3 Lidocaine-Prilocaine 2.5-2.5 % External Cream (Emla) Apply topically to affected area as neededfor Other (when accessing port). APPLY TO SKIN OVER MEDIPORT & COVER 1HR PRIOR TO ACCESSING. 30g 0 Current Facility-Administered Medications Medication Dose Route Frequency Provider Last Rate Last Admin Albuterol Sulfate (Proventil) (5 MG/ML) 0.5% *conc* inhalation solution 2.5 mg 2.5 mg NebulizerPRN ZAK Connolly Albuterol Sulfate (Proventil) (2.5 MG/3ML) 0.083% inhalation solution 2.5 mg 2.5 mg Nebulizer PRN ZAK Connolly REVIEW OF SYSTEMS: See HPI above; All other findings negative. EXAM: Filed Vitals: 02/13/23 1310 BP: 128/66 Pulse: 65 Temp: 36.7 C (98.1 F) GENERAL: Well developed and well nourished in no acute distress. SKIN: No rashes, ulcers, jaundice or spider angiomata. HEENT: Normocephalic, sclera clear. NECK: Supple, trachea midline, no JVD LUNGS: Clear to auscultation bilaterally, no respiratory distress or accessory muscles used. HEART: Regular rate & rhythm, no murmurs and no gallops. ABDOMEN: Normal bowel sounds, soft, non tender to palpation EXTREMITIES: No palmar erythema, + generalized leg edema, no skin discoloration, no clubbing, no cyanosis. NEURO: Pt has CP, wheelchair dependent. ASSESSMENT AND PLAN: Shaina Bustos is a 67 year old female w NALFD Cirrhosis, varices, anemia, constipation. MELD 12 - Continue Protonix to 40mg BID given indigestion, GERD control, Carafate slurry. May use Gaviscon prn - Obtain MELD labs q3-6months. - Last EGD 02/2021 (Grade I varices, PHG). She is on Nadolol 40mg daily, goal HR 55-65 (not increased due to vertigo/HAs) - Last Colonoscopy: 05/2020, recall 5 yrs for hx of TA polyps - Hep A immunity: completed series - Hep B immunity: completed series - HCC screening [id number]. Next imaging due 06/2023. - Encouraged to abstain from ETOH, illicit drugs, APAP no more than 2g daily - Low salt (2g) daily - Advised good control of blood sugars - Per Hepatology's last notes, consider TIPS if persistent anemia 2/2 portal HTN gastropathy. Will monitor blood ct I spent a total of 30 minutes on the date of service in review of patient's record, and previously obtained information in person and appropriate medical visit, discussion and education of plan, withpatient and/or caregiver, placing orders for tests/referral/procedures as medically necessary and documentation of pertinent clinical information in patient's medical records for their visit today. RETURN TO CLINIC: 3 months or sooner prn Esteban Pineda [facility] Gastroenterology, [facility] documented in this encounter Nursing Notes * Sabine Valencia LPN - 02/13/2023 1:11 PM EDT Patient identified by name and date of . Chief Complaint Patient presents with Follow Up Hepatic cirrhosis, NAFLD Symptoms: headache, fluid build up in her feet Bowel Movement Frequency: every other day Bowel Movement Consistency: formed Straining: no Rectal Pain: no Blood in Stool: No documented in this encounter Plan of Treatment Upcoming Encounters Date Type Specialty Care Team Description 02/16/2023 Telemedicine [facility] Emmy Aparicio CRNP [address] [facility] [place] [address] [place], Community Health Server Engineer [address] [place] [address] 02/22/2023 Hem/Onc Treatment Hematology Oncology [place], Chair [address] Hem Onc Scenery [address] [facility] [place] [address] 02/22/2023 Office Visit Pharmacy Pharmacist1, [facility] [address] [place] [address] 03/01/2023 PulmDiagnostic Pulmonary Function [place], [address] [place] [address] 03/09/2023 Home Visit [facility] July Poe RN [address] [place] [address] 04/19/2023 Office Visit Sleep Disorders Lanette Fields CRNP [address] [address] 05/22/2023 Office Visit Gastroenterology Lyssa Stout CRNP [address] [address] [address] 06/27/2023 Office Visit Hematology Oncology Tono Sanchez MD [address] [place] [address] 07/31/2023 Office Visit Family Medicine Vanita Dunn MD [address] [place] [address] 10/04/2023 Office Visit Gynecology Obstetrics Renetta Martinez MD [address] [place] [address] Scheduled Orders Name Type Priority Associated Diagnoses Orde r Schedule CBC WITH WBC DIFFERENTIAL Lab Routine Cirrhosis of liver without ascites, unspecified hepatic cirrhosis type (HCC) Ordered: 02/13/2023 COMPREHENSIVE METABOLIC PANEL Lab Routine Cirrhosis of liver without ascites, unspecified hepatic cirrhosis type (HCC) Ordered: 02/13/2023 PT INR Lab Routine Cirrhosis of liver without ascites, unspecified hepatic cirrhosis type (HCC) Ordered: 02/13/2023 ALPHA-FETOPROTEIN TUMOR MARKER Lab Routine Cirrhosis of liver without ascites, unspecified hepatic cirrhosis type (HCC) Ordered: 02/13/2023 VITAMIN B12 Lab Routine Cirrhosis of liver without ascites, unspecified hepatic cirrhosis type (HCC) Ordered: 02/13/2023 MAGNESIUM Lab Routine Cirrhosis of liver without ascites, unspecified hepatic cirrhosis type (HCC) Ordered: 02/13/2023 Scheduled Procedures Name Priority Associated Diagnoses Date/Ti [...] this encounter Medical Devices Implanted Type Area Electronic Gluer Device Identifier Shelf Expiration Date Model / Serial / Lot [employer] Sure Clip Implanted:Qty: 2 on 06/03/2020 by Janis Hatch DO at OR [facility] Clip N/A: Colon 04/21/2022 [facility]-F-[id number] 35-C-R / / [id number] documented as of this encounter Visit Diagnoses Diagnosis Cirrhosis of liver without ascites, unspecified hepatic cirrhosis type (HCC)- Primary documented in this encounter Advance Directives Documents on File Type Date Recorded Patient Jazz Singer Expl anation Advance Directives and Living Will 04/29/2021 ADVANCE DIRECTIVE / LIVING WILL LIVING WILL AND HEALTH CARE POA Power of Technical Assistant 04/29/2021 [facility] A [facility] [...] the patient have Health Care Power of Technical Assistant? No Code Status History Code Status Date Activated Date Inactivated Comments Full Code 12/27/2021 2:50 PM 12/27/2021 8:02 PM This order reflects the patients wishes and were consensually agreed upon. Question Answer Comments Discussion of Advance Directives occurred with: Not Discussed Does the patient have a Living Will? No Does the patient have Health Care Power of Technical Assistant? No Full Code 03/31/2021 8:57 PM 04/03/2021 [...] Agents on File Name Relationship Healthcare Agent [facility] Communication Syed Bustos Spouse Emergency Contact Care Teams Detective Sergeant Relationship Specialty Start Date End Date Vanita Dunn MD [address] [place] [phone] PCP - General Family Medicine 03/16/21 documented as of this encounter
--- OUTSIDE RECORDS SUMMARY | 2023-05-10 16:46 | External Medical Summary | Summary of Care ---
Author Name Unknown Organization [facility] Address [address] [facility] [place] [address] Phone [phone] Care Team Providers Care Internet And E Business Project Manager Name Role Phone Vanita Dunn MD Primary Care Provid er Reason for Visit * Reason Onset Date Comments FYI 10/24/2022 Encounter Details Date Type Department Care Team Description 10/24/2022 Telephone [facility] [address] [place] [address] Vanita Dunn MD [address] [place] [address] FY Allergies Active Allergy Reactions Severity Noted Date Comments Adhesive Tape Itching 04/29/2020 Penicillins Rash 02/12/2008 Penicillin G 07/20/2018 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 documented as of this encounter (statuses as of 02/14/2023) Medications Medication Sig Dispensed Refills Start Date End Date Status nystatin (NYSTOP) 816751 UNIT/GM powder Apply topically to affected area 3 times a day. 60 g 1 10/16/19 20 Active Dexcom G6 Blow Off Worker Device Use as directed. To test blood [...] 3 10/29/19 21 Active OneTouch Delica Plus [id number] TESTING once daily 100 Each 3 10/29/19 [...] DIRECTED 16 g 5 06/11/20 21 Active Budesonide-Formote rol Fumarate 160-4.5 MCG/ACT Inhalation Aerosol Inhale 2 Puffs by mouth in the morning and 2 Puffs before bedtime. 10.2 g 1 09/27/19 22 Active Dexcom G6 Sensor use as directed [...] or other meds). 30 Tablet 11 05/20/20 Active BD Pen Needle Mini U/F 31G [...] Apply to wound 85 g 11 07/06/20 Active Atorvastatin Calcium 80 MG Oral Tablet (Lipitor) TAKE 1 TABLET BY MOUTH AT BEDTIME 90 Tablet 1 07/29/20 22 Active metFORMIN HCl ER 500 MG Oral Tablet Extended Release 24 Hour (Glucophage XR) TAKE 1 TABLET EVERY DAY WITH A MEAL 90 Tablet 1 07/29/20 22 Active Isosorbide Mononitrate ER 30 MG Oral Tablet Extended Release 24 Hour (Imdur) TAKE 1 TABLET BY MOUTH DAILY 90 Tablet 1 07/29/20 22 Active NovoLOG FlexPen 100 UNIT/ML Subcutaneous [...] bedtime. 360 Tablet 1 10/18/19 23 Active Potassium Chloride ER 10 MEQ Oral Tablet Extended ReleaseIndications :Hypokalemia Take by mouth 1 Tablet in the morning. With food.. 90 Tablet 3 12/22/19 22 023 Discontinued Lidocaine-Prilocai ne 2.5-2.5 % External Cream (Emla)Indications: Encounter for antineoplastic chemotherapy Apply topically to affected area as needed for Other (when accessing port). APPLY TO SKIN OVER MEDIPORT & COVER 1HR PRIOR TO ACCESSING. 30 g 0 02/11/20 22 023 Discontinued(Re fill) Aspirin 81 MG Oral Tablet Chewable CHEW AND SWALLOW 1 TABLET BY MOUTH ONCE DAILY 30 Tablet 8 03/12/20 22 023 Discontinued Oxybutynin Chloride 5 MG Oral Tablet (Ditropan) TAKE 1 TABLET BY MOUTH TWICE DAILY 180 Tablet 1 04/10/20 22 023 Discontinued Linzess 290 MCG Oral Capsule (linaCLOtide) TAKE 1 CAPSULE BY MOUTH ONCE DAILY BEFORE BREAKFAST 90 Capsule 1 06/13/20 22 023 Discontinued traMADol HCl 50 MG Oral Tablet (Ultram)Indication s:Abdominal pain, generalized Take by mouth 2 Tablets every 6 hours as needed for Pain, Severe (abdominal pain). 40 Tablet 0 06/13/20 22 023 Discontinued(Sd dication List Clean Up) Nadolol 40 MG Oral Tablet (Corgard)Indicatio ns:HTN, goal below 140/90 TAKE 1 TABLET BY MOUTH DAILY 90 Tablet 1 07/29/20 22 023 Discontinued Gabapentin 300 MG Oral Capsule (Neurontin)Indicat ions:DM type 2 with diabetic peripheral neuropathy (HCC),Diabetic foot (HCC) TAKE 1 CAPSULE BY MOUTH EVERY MORNING, 1 CAPSULE MIDDAY, AND 2 CAPSULES IN THE EVENING, MAY TAKE AN EXTRA DOSE IN THE MORNING AND MIDDAY IF NEEDED FOR PAIN MAX DAILY AMOUNT: 6 CAPSULES 360 Capsule 0 07/29/20 22 023 Discontinued Escitalopram Oxalate 20 MG Oral Tablet (Lexapro)Indicatio ns:Recurrent major depressive disorder, in partial remission (HCC) TAKE 1 TABLET BY MOUTH DAILY 90 Tablet 0 08/04/20 22 023 Discontinued Fluticasone-Salmet jayme 250-50 MCG/ACT Inhalation Aerosol Powder Breath Activated Inhale 1 Puff by mouth in the morning and 1 Puff before bedtime. 0 023 Discontinued Lactulose 10 GM/15ML Oral Solution (Constulose) TAKE 30G (45ML) BY MOUTH 3 TIMES DAILY 1200 mL 0 09/16/19 23 023 Discontinued(Re fill) Lantus SoloStar 100 UNIT/ML Subcutaneous Solution Pen-injectorIndica tions:Type 2 diabetes mellitus with hemoglobin A1c goal of less than 8.0% (HCC) Inject 27 units subcutaneously at bedtime and 27 units subcutaneously in the morning. 45 mL 3 10/13/19 23 023 Discontinued(Re fill) Benzonatate 200 MG Oral CapsuleIndications :Bronchitis, complicated Take 1 Capsule by mouth 3 times a day as needed for Cough. 30 Capsule 1 10/18/19 23 023 Discontinued(Re fill) oxyCODONE HCl 5 MG Oral Tablet (Oxy IR)Indications:Chr onic pain syndrome Take 1 Tablet by mouth every 6 hours as needed for Pain, Moderate or Pain, Severe. 30 Tablet 0 10/18/19 23 023 Discontinued(Sd dication List Clean Up) Hospital, Clinic, or Other Facility Administered Medication Ordered Dose Route Frequency Start Date End Date Status Albuterol Sulfate (Proventil) (2.5 MG/3ML) 0.083% inhalation solution 2.5 mgIndications:SOB (shortness of breath),Restrictiv e lung disease 2.5 mg NEBULIZER PRN 04/23/2022 12/09/2022 Discontinu ed Albuterol Sulfate (Proventil) (5 MG/ML) 0.5% *conc* inhalation solution 2.5 mgIndications:SOB (shortness of breath),Restrictiv e lung disease 2.5 mg NEBULIZER PRN 04/23/2022 12/09/2022 Discontinu ed documented as of this encounter (statuses as of 02/14/2023) Active Problems Problem Noted Date Thrombocytopenia 01/17/2023 [...] as of this encounter (statuses as of 02/14/2023) Resolved Problems Problem Noted Date Resolved Date [...] current situation. 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 if a long-term plan is made -continue lexapro Generalized weakness [...] pain 01/24/2012 01/17/2017 Genetic Sleep Disorder Research Other*[id number] 05/13/2011 04/07/2016 Obstructive sleep apnea 01/18/2011 12/27/19 [...] as of this encounter (statuses as of 02/14/2023) Immunizations Name Administration Dates Next Due COVID-19 mRNA, LNP-s, No Pre serve, 2-Dose Series (Moderna) 01/05/2022,07/26/2021,12/21/2020,11/09 HEP A - Hepatitis A (Adult > 18 yrs) 09/24/2018, 03/26/2018 Hepatitis B, 20+ yrs 09/24/2018,04/23/2018,03/26 Pneumococcal Conjugate Vacc, 13 Valent (Prevnar) 05/02/2019 Pneumococcal Conjugate Vacci ne, 20-valent ([id number]) 10/21/2022 Pneumococcal Polysaccharide PPV23 (Pneumovax) 06/01/2010 Seasonal [...] Miscellaneous Notes * Telephone Encounter - THAD Griffiths - 10/24/2022 2:07 PM EST Gilbert from [facility] called to give a progress update on this patients speech therapy. She wants to see Shaina two more times this week and then two times a week for a week then once a week for two weeks. Gilbert also recommends a slight downgrade in her textures. Soft and bite sized solids are okay as well as mildly thick liquids. documented in this encounter Plan of Treatment Upcoming Encounters Date Type Specialty Care Team Description 02/16/2023 Telemedicine [facility] Emmy Aparicio CRNP [address] [place] [address] [place] Bush, Community Health Patient Partner [address] [place] [address] 02/22/2023 Hem/Onc Treatment Hematology Oncology [place], Chair 10 Hem Onc [facility] [address] [facility], [place] [address] 02/22/2023 Office Visit Pharmacy Pharmacist1, [facility] [address] [facility], [place] [address] 03/01/2023 PulmDiagnostic Pulmonary Function [place], Pft [address] [place] [address] 03/09/2023 Home Visit [facility] July Poe RN [address] [place] [address] 04/19/2023 Office Visit Sleep Disorders Lanette Fields CRNP [address] [place] [address] 05/22/2023 Office Visit Gastroenterology Lyssa Stout CRNP [address] [place] [address] 06/27/2023 Office Visit Hematology Oncology Tono Sanchez MD [address] [facility], [place] [address] 07/31/2023 Office Visit Family Medicine Vanita Dunn MD [address] [place] [address] 10/04/2023 Office Visit Gynecology Obstetrics Renetta Martinez MD [address] [place] [address] Scheduled Procedures Name Priority Associated Diagnoses Date/Ti [...] this encounter Medical Devices Implanted Type Area Dairy Grazer Device Identifier Shelf Expiration Date Model / Serial / Lot Microtech Sure Clip Implanted:Qty: 2 on 06/03/2020 by Janis Hatch DO at OR [facility] Clip N/A: Colon 04/21/2022 [facility]-F-26-2 35-C-R / / [id number] documented as of this encounter Additional Health Concerns Infection Onset Date Last Indicated Resolved Time MRSA 09/17/2022 09/17/2022 11/16/2022 12:2 0 AM EST documented as of this encounter Advance Directives Documents on File Type Date Recorded Patient Abalone Sheller Expl anation Advance Directives and Living Will 04/29/2021 ADVANCE DIRECTIVE / LIVING WILL LIVING WILL AND HEALTH CARE POA Power of Paintings Restorer 04/29/2021 [facility] [...] the patient have Health Care Power of Paintings Restorer? No Code Status History Code Status Date Activated Date Inactivated Comments Full Code 12/27/2021 2:50 PM 12/27/2021 8:02 PM This order reflects the patients wishes and were consensually agreed upon. Question Answer Comments Discussion of Advance Directives occurred with: Not Discussed Does the patient have a Living Will? No Does the patient have Health Care Power of Paintings Restorer? No Full Code 03/31/2021 8:57 PM 04/03/2021 [...] on File Name Relationship Healthcare Agent [facility] p Communication Syed Bustos Spouse Emergency Contact Care Teams Internet And E Business Project Manager Relationship Specialty Start Date End Date Vanita Dunn MD [address] [place] [facility] [place] [address] PCP - General Family Medicine 03/16/21 documented as of this encounter
--- OUTSIDE RECORDS SUMMARY | 2023-05-10 16:46 | External Medical Summary | Summary of Care ---
Author Name Unknown Organization [facility] Address [address] [facility] [place] [address] Phone [phone] Care Team Providers Care Quality Assurance Name Role Phone Vanita Dunn MD Primary Care Provid er Reason for Visit * Reason Comments [facility]: Maintenance Disability Encounter Details Date Type Department Care Team Description 02/09/2023 Home Visit [facility], [facility] [address] [place] [address] July Poe, RN [address] [place] [address] Allergies Active Allergy Reactions Severity Noted Date Comments Adhesive Tape Itching 04/29/2020 Penicillins Rash 02/12/2008 Penicillin G 07/20/2018 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 documented as of this encounter (statuses as of 02/09/2023) Medications Medication Sig Dispensed Refills Start Date End Date Status nystatin (NYSTOP) 787964 UNIT/GM powder Apply topically to affected area 3 times a day. 60 g 1 10/16/2019 Active Dexcom G6 Store Team Member Device Use as directed. To test blood sugars 4 times a day Dx E11.9 1 Each 0 09/14/2020 Active Dexcom G6 Transmitter Use as directed. To test blood sugars 4 times a day. Change every 90 days. Dx E11.9 1 Each 3 09/14/2020 Active OneTouch Verio In Vitro Strip (Glucose Blood) TESTING once daily 100 Strip 3 10/29/2020 Active OneTouch Delica Plus [id number] TESTING once daily 100 Each 3 10/29/2020 [...] than 7.0% ([facility]) inject 4.5mg (1 pen) under the [...] than 8.0% ([facility]) Inject 60 units subcutaneously at bedtime 45 [...] as of this encounter (statuses as of 02/09/2023) Active Problems Problem Noted Date Thrombocytopenia 01/17/2023 [...] as of this encounter (statuses as of 02/09/2023) Resolved Problems Problem Noted Date Resolved Date [...] current situation. 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 if a laborer marine terminal plan is made -continue lexapro Generalized [...] pain 01/24/2012 01/17/2017 Genetic Sleep Disorder Research Other*[id number] 05/13/2011 04/07/2016 Obstructive sleep apnea 01/18/2011 12/27/19 [...] as of this encounter (statuses as of 02/09/2023) Immunizations Name Administration Dates Next Due COVID-19 mRNA, LNP-s, No Pre serve, 2-Dose Series (Moderna) 01/05/2022,07/26/2021,12/21/2020,11/09 HEP A - Hepatitis A (Adult > 18 yrs) 09/24/2018, 03/26/2018 Hepatitis B, 20+ yrs 09/24/2018,04/23/2018,03/26 Pneumococcal Conjugate Vacc, 13 Valent (Prevnar) 05/02/2019 Pneumococcal Conjugate Vacci ne, 20-valent ([id number]) 10/21/2022 Pneumococcal Polysaccharide PPV23 (Pneumovax) 06/01/2010 Seasonal [...] Sign Reading Time Taken Comments Blood Pressure 120/70 02/09/2023 9:02 AM EDT Pulse 72 02/09/2023 9:02 AM EDT Temperature 36.4 C (97.6 F) 02/09/2023 9:02 AM ED T Respiratory Rate 18 02/09/2023 9:02 AM EDT Oxygen Saturation 96% 02/09/2023 9:02 AM EDT Inhaled Oxygen Concentration - - [...] Progress Notes * July Poe RN - 02/09/2023 7:43 AM EDT [facility] Special Investigator Visit Date: 02/09/2023 Time: 8:43 AM Name: Shaina Bustos : 1955 Current Concerns: Pt seen for return [facility] visit Recently had CT scan done and shows: Hypoventilatory changes and right basilar subsegmental atelectatic changes. Otherwise no focal consolidation or ground-glass opacity. 2. Cirrhosis with splenomegaly and small volume ascites visualized in the upper abdomen. 3. Nonobstructing left renal calculi measure up to 4 millimeters. Pt/ under the impression that they had [employer], Medicare and [employer] insurance - calledP and confirmed that [facility] termed in September 2022 Discussed current plans and called for application process during visit - he is unsure about switching Did discuss further and called [facility] for further details - found that it is better for them to switchback to [facility]. did application over phone and P will go back into effect on 7/1/23 Pt denies any concerns at this time She does want purewick system back, was not covered under current plan but will be covered under [employer] - will have ordered once [employer] take effect 03/11 No longer has a cg - has not had anyone consistent or reliable Physical Exam: BP 120/70 | Pulse 72 | Temp 36.4 C (97.6 F) | Resp 18 | SpO2 96% Pain 0 Physical Exam Constitutional: Appearance: She is obese. HENT: Nose: Nose normal. Cardiovascular: Rate and Rhythm: Normal rate and regular rhythm. Pulses: Normal pulses. Heart sounds: Normal heart sounds. Pulmonary: Effort: Pulmonary effort is normal. Breath sounds: Normal breath sounds. Abdominal: General: Bowel sounds are normal. Palpations: Abdomen is soft. Musculoskeletal: Right lower leg: Edema (mod non-pitting) present. Left lower leg: Edema (mod non-pitting) present. Skin: General: Skin is warm and dry. Neurological: Mental Status: She is alert and oriented to person, place, and time. Problems/Symptoms: Review of Systems Constitutional: Negative. Eyes: Negative. Respiratory: Positive for cough (chronic- mucus, not new, unsure of color) and shortness of breath (at baseline). Cardiovascular: Positive for leg swelling. Genitourinary: Negative. Musculoskeletal: Positive for gait problem (non-ambulatory). Skin: Negative. Psychiatric/Behavioral: Negative. Medication Reconciliation: (See medication list) Does patient take medications as ordered: Yes Patient Well Being: PHQ2/9: No questionnaires available. No change in living situation No falls [facility]-10 Completed this Visit: No. Routine visit and No falls since last visit Advanced Care Planning: Living Will. Patient's Goals of Care: 1. Remain in home 2. Have a blending machine operator cg 3. Get out more Reinforcement/Education: DIABETES: [...] hrs Home Interventions Provided: Home Intervention: Other; Eval Reinforced current Plan of Care, including self-management and medication regimen Patient's 'Red Flags': 1. Increased cough with yellow or green sputum 2. Lethargy, sleeping more 3. No bowel movement in 24 hours Patient Needs to Remember: Call PCP with any new or worsening health concerns or problems, red flag symptoms. Referrals Needed: Other none Follow Up: Is there cellular connectivity/connectivity in the home? Yes Does the patient have internet in the home? Yes Patient encouraged to call the intake phone number for all urgent but not emergent issues. Is the patient new to [employer] at Home within the last 30 days? No, Assess appropriateness for upcoming telehealth visits. Cancel telehealth visits & schedule home visit with care donor services team leader(s)as indicated. Provider is in agreement with Plan of Care: Yes Scheduled to follow up with patient in one week with provider and 3 weeks with RNCM. July Poe RN 02/09/2023 8:43 AM documented in this encounter Plan of Treatment Upcoming Encounters Date Type Specialty Care Team Description 02/14/2023 Office Visit Gastroenterology Lyssa Stout CRNP [address] [place] [address] 02/16/2023 Telemedicine [facility] Emmy Aparicio CRNP [address] [facility] [place] [address] [place], Community Health Fine Arts Instructor [address] [place] [address] 02/22/2023 Hem/Onc Treatment Hematology Oncology [place], Chair 10 Hem On[address] [address] 02/22/2023 Office Visit Pharmacy Pharmacist1, [facility] [address] [place] [address] 03/01/2023 PulmDiagnostic Pulmonary Function [place], [address] [place] [address] 03/09/2023 Home Visit [facility] July Poe RN [address] [place] [address] 04/19/2023 Office Visit Sleep Disorders Lanette Fields CRNP [address] [place] [address] 06/27/2023 Office Visit Hematology Oncology Tono Sanchez MD [address] [place] [address] 07/31/2023 Office Visit Family Medicine Vanita Dunn MD [address] [place] [address] 10/04/2023 Office Visit Gynecology Obstetrics Renetta Martinez MD [address] [place] [address] Scheduled Procedures Name Priority Associated Diagnoses Date/Ti [...] this encounter Medical Devices Implanted Type Area Metal Wire Technician Device Identifier Shelf Expiration Date Model / Serial / Lot Microtech Sure Clip Implanted:Qty: 2 on 06/03/2020 by Janis Hatch DO at OR [facility] Clip N/A: Colon 04/21/2022 [facility]-F-26-2 35-C-R / / [id number] documented as of this encounter Advance Directives Documents on File Type Date Recorded Patient 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 No Code Status History Code Status Date Activated Date Inactivated Comments Full Code 12/27/2021 2:50 PM 12/27/2021 8:02 PM This order reflects the patients wishes and were consensually agreed upon. Question Answer Comments Discussion of Advance Directives occurred with: Not Discussed Does the patient have a Living Will? No Does the patient have Health Care Power of Bait Tier? No Full Code 03/31/2021 8:57 PM 04/03/2021 [...] Agents on File Name Relationship Healthcare Agent [facility] p Communication Syed Bustos Spouse Emergency Contact Care Teams Quality Assurance Relationship Specialty Start Date End Date Vanita Dunn MD [address] [place] [address] PCP - General Family Medicine 03/16/21 documented as of this encounter
--- OUTSIDE RECORDS SUMMARY | 2023-05-10 16:47 | External Medical Summary ---
Author Name Unknown Address Unknown Organization K09:[facility] [address] [address] [place] [address] Laboratory Report Ordering Provider Test Date Status ABDULAZIZ BORJAS 02/01/2023 13:50:24 Final Observation Date Value Abnormality Reference (Units ) Status Creatinine 02/01/2023 13:50:24 0.7 0.5-1.0 (mg/dL) Final Glomerular filtration rate/1.73 sq M.predicted [Volume Rate/Area] in Serum, Plasma or Blood by Creatinine-based formula (CKD-EPI) 02/01/2023 13:50:24 >90 >=60 (mL/min) Final Performing Location [facility] [address] [address] [place] [address]
--- OUTSIDE RECORDS SUMMARY | 2023-05-10 16:47 | External Medical Summary | Summary of Care ---
Author Name Unknown Organization [facility] Address [address] [facility] [place] [address] Phone [phone] Care Team Providers Care Biofuels Technology Manager Name Role Phone Vanita Dunn MD Primary Care Provid er Reason for Visit * Reason Comments Diabetes Follow-Up Dosage Adjustment In Person (Anticoag Cl inic) Encounter Details Date Type Department Care Team Description 02/01/2023 Office Visit Pharmacy, [facility] [address] [facility] [place] [address] Pharmacist1, [facility] [address] [place] [address] Type 2 diabetes mellitus with hemoglobin A1c goal of less than 8.0% ([facility])*; Dyslipidemia; Anticoagulation management encounter; Encounter for long-term (current) use of medications Allergies Active Allergy Reactions Severity Noted Date Comments Adhesive Tape Itching 04/29/2020 Penicillins Rash 02/12/2008 Penicillin G 07/20/2018 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 documented as of this encounter (statuses as of 02/01/2023) Medications Medication Sig Dispensed Refills Start Date End Date Status nystatin (NYSTOP) 730807 UNIT/GM powder Apply topically to affected area 3 times a day. 60 g 1 10/16/2019 Active Dexcom G6 Front Line Supervisor Device Use as directed. To test blood sugars 4 times a day Dx E11.9 1 Each 0 09/14/2020 Active Dexcom G6 Transmitter Use as directed. To test blood sugars 4 times a day. Change every 90 days. Dx E11.9 1 Each 3 09/14/2020 Active OneTouch Verio In Vitro Strip (Glucose Blood) TESTING once daily 100 Strip 3 10/29/2020 Active OneTouch Delica Plus [id number] TESTING once daily 100 Each 3 10/29/2020 [...] as directed 60 Each 5 10/06/2021 Active Lidocaine-Prilocain e 2.5-2.5 % External Cream (Emla)Indications:E ncounter for antineoplastic chemotherapy Apply topically to affected area as needed for Other (when accessing port). APPLY TO SKIN OVER MEDIPORT & COVER 1HR PRIOR TO ACCESSING. 30 g 0 02/10/2022 Active Trulicity 4.5 MG/0.5ML Subcutaneous Solution Pen-injector [...] MOUTH DAILY 90 Tablet 3 01/26/2023 Active Hospital, Clinic, or Other Facility Administered [...] as of this encounter (statuses as of 02/01/2023) Active Problems Problem Noted Date Thrombocytopenia 01/17/2023 [...] as of this encounter (statuses as of 02/01/2023) Resolved Problems Problem Noted Date Resolved Date [...] pain 01/24/2012 01/17/2017 Genetic Sleep Disorder Research Other*[id number] 05/13/2011 04/07/2016 Obstructive sleep apnea 01/18/2011 12/27/19 [...] as of this encounter (statuses as of 02/01/2023) Immunizations Name Administration Dates Next Due COVID-19 mRNA, LNP-s, No Pre serve, 2-Dose Series (Moderna) 01/05/2022,07/26/2021,12/21/2020,11/09 HEP A - Hepatitis A (Adult > 18 yrs) 09/24/2018, 03/26/2018 Hepatitis B, 20+ yrs 09/24/2018,04/23/2018,03/26 Pneumococcal Conjugate Vacc, 13 Valent (Prevnar) 05/02/2019 Pneumococcal Conjugate Vacci ne, 20-valent ([id number]) 10/21/2022 Pneumococcal Polysaccharide PPV23 (Pneumovax) 06/01/2010 Seasonal [...] encounter Progress Notes * Jonas Atwood V, [facility] - 02/01/2023 1:42 PM EDT Images from the original note were not included. Medication Therapy Disease [facility] - Diabetes Management Progress Note Shaina Bustos, identified by name and date of , is a 67 year old female being seen for diabetesmanagement/education. Patient presents for return diabetic visit. DIABETES: Current diabetic medications: INCREASE:Novolog, Inject 35 units before breakfast, 39units before lunch, [id number] beforesupper DECREASE:Lantus pen,60units daily Metformin ER 500mg daily Trulicity 4.5mg SQ weekly Medication Injection Site: Abdomen Lifestyle: Diet: unchanged History of Treatment Barriers: Lifestyle: wheelchair bound Therapy considerations: None Medication: Metformin IR:GM? Glucose Review/SMBG: Readings obtained from patient device Hypoglycemia: Does your blood sugar go below 70 mg/dL? Yes, per sensor before breakfast and after lunch. Hyperglycemia symptoms present: none Goal <8 Recent Labs Units 12/06/22 1408 05/19/22 1449 01/24/22 0834 HEMOGLOBIN A1C - [facility] % 6.0* 7.4* 6.9* Recent Labs Units 12/06/22 1408 08/30/22 1552 05/19/22 1449 ESTIMATED GLOMERULAR FILTRATION RATE - [facility] mL/min >90 >90 83 CREATININE - [facility] mg/dL 0.6 0.6 0.8 Lab Results Component Value Date/Time CREATININE - [facility] 0.6 12/06/2022 02:08 PM CREATININE - [facility] 0.6 08/30/2022 03:52 PM CREATININE - [facility] 0.8 05/19/2022 02:49 PM CREATININE - [facility] 0.6 09/24/2020 05:16 [...] goal BP Readings from Last 3 Encounters: 01/24/23 122/70 01/24/23 112/62 01/17/23 110/70 Blood pressure at goal: yes HYPERLIPIDEMIA: Patient is taking moderate or high intensity statin: yes, Atorvastatin 80mg daily HEALTH MAINTENANCE REVIEW: Health Maintenance Due Topic Date Due DXA Scan Never done DIABETES-EYE EXAM 06/12/2019 Zoster Vaccines (3 of 3) 06/23/2020 Depression Screening, Annual for Pts 12 and Over 07/27/2021 COVID-19 Vaccine (5 - Booster for Moderna series) 03/02/2022 DIABETES-FOOT EXAM 04/05/2022 Yearly B-12 09/15/2022 Albumin/Creatinine Ratio 03/30/2023 ASSESSMENT & PLAN: ICD-10-CM 1. Type 2 diabetes mellitus with hemoglobin A1c goal of less than 8.0% ([facility]) E11.9 BG Readings - Blood sugars uncontrolled. Still huge rise after dinner Medications - Reviewed current regimen, patient is adherent to regimen. Diet, Exercise, Lifestyle - No significant lifestyle changes since last visit. Discussed with patient today. Patient is agreeable to wear Dexcom CGm. Patient aware to contact clinic if any hypoglycemia before next visit. MEDICATION CHANGES: yes, see below; preferred pharmacy: [facility] Medications: INCREASE: Novolog, Inject 35 units before breakfast, 39units before lunch, [id number] before supper DECREASE: Lantus pen54 units daily Metformin ER 500mg daily Trulicity 4.5mg SQ weekly HEALTH MAINTENANCE INTERVENTIONS: Labs: Ordered & Scheduled: Vitamin B12 and Lipid Panel Immunizations:needs 3rd shingles and covid booster Foot Exam:needs completed Eye Exam:needs completed Annual Wellness Visit:N/A FOLLOW UP: Return to clinic in 3 weeks Visit date not found Jonas Atwood RPh, CDE Clinical Pharmacist - Cake Inspector Medication Therapy Management Clinic 02/01/2023, 1:43 PM documented in this encounter Plan of Treatment Upcoming Encounters Date Type Specialty Care Team Description 02/02/2023 Hospital Encounter Radiology 02/09/2023 Home Visit [facility] July Poe RN [address] [place] [address] 02/14/2023 Office Visit Gastroenterology Lyssa Stout CRNP [address] [place] [address] 02/16/2023 Telemedicine [facility] Emmy Aparicio CRNP [address] [facility] [place] [address] Garrett Bush, Community Health Bridge Opener [address] [place] [address] 03/01/2023 PulmDiagnostic Pulmonary Function [place], P[address] [place] [address] 06/27/2023 Office Visit Hematology Oncology Tono Sanchez MD [address] [facility] [place] [address] 07/31/2023 Office Visit [facility] [address] [facility] [address] 10/04/2023 Office Visit Gynecology Obstetrics Renetta Martinez MD [address] [place] [address] Scheduled Orders Name Type Priority Associated Diagnoses Orde r Schedule LIPID PANEL WITH DIRECT LDL IF TG IS HIGH Lab Routine Dyslipidemia Expected: 02/22/2023, Expires: 02/02/2024 VITAMIN B12 Lab Routine Encounter for long-term (current) use of medications Expected: 02/22/2023, Expires: 02/02/2024 ALBUMIN / CREATININE RATIO, URINE Lab Routine Type 2 diabetes mellitus with hemoglobin A1c goal of less than 8.0% (HCC) Expected: 02/22/2023, Expires: 02/02/2024 Scheduled Procedures Name Priority Associated Diagnoses Date/Ti [...] 02/03/2017, Additional history exists HbA1c 06/08/2023 12/06/2022, 04/2022, 01/24/2022, Additional history exists TSH 07/06/2023 07/06/2022, 04/2022, 06/10/2021, Additional history exists GFR 12/07/2023 12/06/2022, 08/12, 05/19/2022, Additional history exists Mammogram 12/10/2023 12/09/2022, 08/13, 09/08/2020, Additional history exists COLONOSCOPY-EVERY 5 YRS AGES [...] this encounter Medical Devices Implanted Type Area Gold Marker Device Identifier Shelf Expiration Date Model / Serial / Lot Microtech Sure Clip Implanted:Qty: 2 on 06/03/2020 by Janis Hatch DO at OR [facility] Clip N/A: Colon 04/21/2022 [facility]-F-26-2 35-C-R / / [id number] documented as of this encounter Visit Diagnoses Diagnosis Type 2 diabetes mellitus with hemoglobin A1c goal of less than 8.0% (HCC)- Primary Dyslipidemia Other and unspecified hyperlipidemia Anticoagulation management encounter Encounter for therapeutic drug monitoring Encounter for long-term (current) use of medications Encounter for long-term (current) use of other medications documented in this encounter Advance Directives Documents on File Type Date Recorded Patient Granulizing Machine Operator Expl anation Advance Directives and Living Will 04/29/2021 ADVANCE DIRECTIVE / LIVING WILL LIVING WILL AND HEALTH CARE POA Power of Generation Engineer 04/29/2021 POWER OF A [facility] HE[facility] [...] the patient have Health Care Power of Generation Engineer? No Code Status History Code Status Date Activated Date Inactivated Comments Full Code 12/27/2021 2:50 PM 12/27/2021 8:02 PM This order reflects the patients wishes and were consensually agreed upon. Question Answer Comments Discussion of Advance Directives occurred with: Not Discussed Does the patient have a Living Will? No Does the patient have Health Care Power of Generation Engineer? No Full Code 03/31/2021 8:57 PM [...] Syed Bustos Spouse Emergency Contact Care Teams Biofuels Technology Manager Relationship Specialty Start Date End Date Vanita Dunn MD [address] [place] [address], [place] [phone] PCP - General Family Medicine 03/16/21 documented as of this encounter
--- OUTSIDE RECORDS SUMMARY | 2023-05-10 16:47 | External Medical Summary | Summary of Care ---
Author Name Unknown Organization [facility] Address [address] [facility] [place] [address] Phone [phone] Care Team Providers Care Casting Room Operator Name Role Phone Vanita Dunn MD Primary Care Provid er Reason for Visit * Reason Comments IV Therapy Venofer Encounter Details Date Type Department Care Team Description 02/01/2023 Hem/Onc Treatment Hematology/Oncology Treatment, [place] [address] [place] [address] [place], Chair 5 Hem Onc [place] [address] [place] [address] Iron deficiency anemia due to chronic blood loss*; New abnormality on chest x-ray Allergies Active Allergy Reactions Severity Noted Date Comments Adhesive Tape Itching 04/29/2020 Penicillins Rash 02/12/2008 Penicillin G 07/20/2018 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 documented as of this encounter (statuses as of 02/01/2023) Medications Medication Sig Dispensed Refills Start Date End Date Status nystatin (NYSTOP) 407033 UNIT/GM powder Apply topically to affected area 3 times a day. 60 g 1 0 Active Dexcom G6 Timber Hand Device Use as directed. To test blood sugars 4 times a day Dx E11.9 1 Each 0 1 Active Dexcom G6 Transmitter Use as directed. To test blood sugars 4 times a day. Change every 90 days. Dx E11.9 1 Each 3 1 Active OneTouch Verio In Vitro Strip (Glucose Blood) TESTING once daily 100 Strip 3 1 Active MitoGeneticsTouch Delica Plus [id number] TESTING once daily 100 Each 3 1 [...] DAILY DIRECTED 16 g 5 1 Active Budesonide-Formoter ol Fumarate 160-4.5 MCG/ACT Inhalation Aerosol Inhale 2 Puffs by mouth in the morning and 2 Puffs before bedtime. 10.2 g 1 2 Active Dexcom G6 Sensor use as directed [...] ([facility]) inject 4.5mg (1 pen) under the [...] to wound 85 g 11 2 Active Atorvastatin Calcium 80 MG Oral Tablet (Lipitor) TAKE 1 TABLET BY MOUTH AT BEDTIME 90 Tablet 1 2 Active metFORMIN HCl ER 500 MG Oral Tablet Extended Release 24 Hour (Glucophage XR) TAKE 1 TABLET EVERY DAY WITH A MEAL 90 Tablet 1 2 Active Isosorbide Mononitrate ER 30 MG Oral Tablet Extended Release 24 Hour (Imdur) TAKE 1 TABLET BY MOUTH DAILY 90 Tablet 1 2 Active NovoLOG FlexPen 100 UNIT/ML Subcutaneous [...] before bedtime. 360 Tablet 1 3 Active Fluticasone-Salmete rol 250-50 MCG/ACT Inhalation Aerosol Powder Breath Activated (Advair Diskus) INHALE 1 PUFF BY MOUTH 2 TIMES DAILY. 60 Each 0 3 Active Albuterol Sulfate (2.5 MG/3ML) 0.083% [...] the morning. 30 Tablet 2 3 Active Benzonatate 200 MG Oral CapsuleIndications: Bronchitis, complicated Take 1 Capsule by mouth 3 times a day as needed for Cough. 30 Capsule 1 3 Active Linzess 290 MCG Oral Capsule (linaCLOtide) TAKE 1 CAPSULE BY MOUTH once DAILY before breakfast 90 Capsule 3 3 Active Potassium Chloride ER 10 MEQ Oral Tablet Extended ReleaseIndications: Hypokalemia Take by mouth 1 tablet in the morning with food. 90 Tablet 3 3 Active Lactulose 10 GM/15ML Oral Solution (Constulose) TAKE 30G (45ML) BY MOUTH 3 TIMES DAILY 1200 mL 0 3 Active Lantus SoloStar 100 UNIT/ML Subcutaneous Solution Pen-injectorIndicat ions:Type 2 diabetes mellitus with hemoglobin A1c goal of less than 8.0% ([facility]) Inject 60 units subcutaneously at bedtime [...] 1HR PRIOR TO ACCESSING. 30 g 0 2 02/02/20 23 Discontinu ed(Refill) Hospital, Clinic, or Other Facility [...] pain 01/24/2012 01/17/2017 Genetic Sleep Disorder Research Other*[id number] 05/13/2011 04/07/2016 Obstructive sleep apnea 01/18/2011 12/27/19 [...] (Prevnar) 05/02/2019 Pneumococcal Conjugate Vacci ne, 20-valent ([id number]) 10/21/2022 Pneumococcal Polysaccharide PPV23 (Pneumovax) 06/01/2010 Seasonal [...] Nursing Notes * Shelli Barakat RN - 02/01/2023 4:38 PM EDT Goals: Patient will remain free from injury. Possible barriers to meeting goals: ambulating with IV pole, use of mobile scooter to ambulate Stability of the patient: Moderately stable - low risk of patient condition declining or worsening Summary regarding today's goals: Met: Patient remained free of harm today Patient tolerated treatment well without any acute issues or problems. Patient will return in 3 weeks. Patient left facility in stable condition and denied any further needs. * Shelli Barakat RN - 02/01/2023 2:30 PM EDT Chair 1. Patient came in for Venofer infusion today -- labs also drawn via R chest port. Patient overall is feeling well today. Port accessed without difficulty and labs drawn. Patient is comfortable and denies further needs at this time. Safety and Risk for Injury Patient will remain free from injury. Ensure appropriate safety devices are available. Provide and maintain safe environment. documented in this encounter Plan of Treatment Upcoming Encounters Date Type Specialty Care Team Description 02/02/2023 Hospital Encounter Radiology 02/09/2023 Home Visit [facility] July Poe, RN [address] [place] [address] 02/14/2023 Office Visit Gastroenterology Lyssa Stout CRNP [address] [place] [address] 02/16/2023 Telemedicine [facility] Emmy Aparicio CRNP [address] [facility] [place] [address] Garrett Bush, Community Health Trust Manager Assistant [address] [place] [address] 02/22/2023 Hem/Onc Treatment Hematology Oncology [place], Chair 10 Hem Onc [facility] [address] [place] [address] 02/22/2023 Office Visit Pharmacy Pharmacist1, [facility] [address] [facility] [place] [address] 03/01/2023 PulmDiagnostic Pulmonary Function West, P[address] [place] [address] 06/27/2023 Office Visit Hematology Oncology Tono Sanchez MD [address] [place] [address] 07/31/2023 Office Visit Family Medicine Vanita Dunn MD [address] [place] [address] 10/04/2023 Office Visit Gynecology Obstetrics Renetta Martinez MD [address] [place] [address] Pending Results Name Type Priority Associated Diagnoses Date /Time FERRITIN Lab STAT Iron deficiency anemia due to chronic blood loss 02/01/2023 1:50 PM EDT Scheduled Procedures Name Priority Associated [...] this encounter Medical Devices Implanted Type Area Diploma Maker Device Identifier Shelf Expiration Date Model / Serial / Lot Microtech Sure Clip Implanted:Qty: 2 on 06/03/2020 by Janis Hatch DO at OR [facility] Clip N/A: Colon 04/21/2022 [facility]-F-26-2 35-C-R / / [id number] documented as of this encounter Procedures Procedure Name Priority Date/Time Associated Diagnosis Comments DIFFERENTIAL, AUTOMATED STAT 02/01/2023 1:50 PM EDT Iron deficiency anemia due to chronic blood loss CBC WITH WBC DIFFERENTIAL STAT 02/01/2023 1:50 PM EDT Iron deficiency anemia due to chronic blood loss CREATININE Routine 02/01/2023 1:50 PM EDT New abnormality on chest x-ray CBC STAT 02/01/2023 1:50 PM EDT Iron deficiency anemia due to chronic blood loss DIFFERENTIAL, TECHNOLOGIST REVIEW Routine 02/01/2023 1:50 PM EDT Iron deficiency anemia due to chronic blood loss documented in this encounter Results * DIFFERENTIAL, TECHNOLOGIST REVIEW (02/01/2023 1:50 PM EDT) Pathologist [facility] nRs 02/01/2023 2:49 PM EDT [facility] 56-02 Blood Venous blood specimen / Unknown Central Line / Unknown 02/01/2023 1:50 PM EDT 02/01/2023 2:12 PM EDT Tono Sanchez MD LAB BLOOD ORDERABLES [facility] [address] [place] [address] * (ABNORMAL) DIFFERENTIAL, AUTOMATED (02/01/2023 1:50 PM EDT) WBC 3.16(L) 4.00 - 10.80 K/uL 02/01/2023 2:49 PM EDT [facility] 56 Neutrophils % 53.8 40.0 - 75.0 % 02/01/2023 2:49 PM EDT [facility] 56 Lymphocytes % 20.6 18.0 - 42.0 % 02/01/2023 2:49 PM EDT [facility] Monocytes % 11.4(H) 1.0 - 11.0 % 02/01/2023 2:49 PM EDT [facility] Eosinophils % 13.3(H) 0.0 - 6.0 % 02/01/2023 2:49 PM EDT [facility] 56 Basophils % 0.9 0.0 - 2.0 % 02/01/2023 2:49 PM EDT [facility] 56- Absolute Neutrophils 1.70(L) 1.80 - 7.70 K/uL 02/01/2023 2:49 PM EDT [facility] 56 Absolute Lymphocytes 0.65(L) 1.00 - 4.80 K/ul 02/01/2023 2:49 PM EDT [facility] 56- Absolute Monocytes 0.36 0.00 - 1.10 K/uL 02/01/2023 2:49 PM EDT [facility] 56-02 Absolute Eosinophils 0.42 0.00 - 0.70 K/uL 02/01/2023 2:49 PM EDT [facility] 56-02 Absolute Basophils 0.03 0.00 - 0.20 K/uL 02/01/2023 2:49 PM EDT [facility] 56 Blood Venous blood specimen / Unknown Central Line / Unknown 02/01/2023 1:50 PM EDT 02/01/2023 2:12 PM EDT Tono Sanchez MD LAB BLOOD ORDERABLES [facility] [address] [place] [address] * (ABNORMAL) CBC (02/01/2023 1:50 PM EDT) WBC 3.16(L) 4.00 - 10.80 K/uL 02/01/2023 2:49 PM EDT [facility] RBC 2.63 3.85 - 5.15 M/uL 02/01/2023 2:49 PM EDT [facility] HGB 9.8(L) 12.0 - 15.3 g/dL 02/01/2023 2:49 PM EDT [facility] HCT 30.7(L) 36.0 - 45.2 % 02/01/2023 2:49 PM EDT [facility] MCV 116.7 81.5 - 97.5 fL 02/01/2023 2:49 PM EDT [facility] MCH 37.3 27.0 - 34.0 pg 02/01/2023 2:49 PM EDT [facility] MCHC 31.9 32.0 - 36.0 g/dL 02/01/2023 2:49 PM EDT [facility] 56 RDW 16.5 11.5 - 15.5 % 02/01/2023 2:49 PM EDT [facility] PLT 70(L) 140 - 400 K/uL 02/01/2023 2:49 PM EDT [facility] 56 MPV 13.3 6.6 - 11.1 fL 02/01/2023 2:49 PM EDT [facility] Blood Venous blood specimen / Unknown Central Line / Unknown 02/01/2023 1:50 PM EDT 02/01/2023 2:12 PM EDT Tono Sanchez MD LAB BLOOD ORDERABLES [facility] [address] [place] [address] * CREATININE (02/01/2023 1:50 PM EDT) Creatinine 0.7 0.5 - 1.0 mg/dL 02/01/2023 2:37 PM EDT [facility] 56- Estimated Glomerular Filtration Rate >90 >=60 mL/min 02/01/2023 2:37 PM EDT [facility] 56 Comment:eGFR is calculated b ased on the CKD-EPI 2020 equation Blood Venous blood specimen / Unknown Central Line / Unknown 02/01/2023 1:50 PM EDT 02/01/2023 2:12 PM EDT Josh Main PA-C LAB BLOOD ORDERA BLES [facility] [address] [place] [address] documented in this encounter Visit Diagnoses Diagnosis Iron deficiency anemia due to chronic blood loss- Primary Iron deficiency anemia secondary to blood loss (chronic) New abnormality on chest x-ray Other nonspecific abnormal finding of lung field documented in this encounter Administered Medications Active Administered Medications - up to 3 most recent administrations Medication Order MAR Action Action Date Dose Rate Site diphenhydrAMINE (Benadryl) inj 50 mg 50 mg, IV Push, ONCE PRN Other, Hypersensitivity Reaction, Starting on Mon02/01/23 at 1405, Until [place] 02/02/23 at 1404, For 24 hours EPINEPHrine 1 MG/ML inj 0.3 mg 0.3 mg, Intramuscular, ONCE PRN Other, Hypersensitivity Reaction or Anaphylaxis, Starting on Mon02/01/23 at 1405, Until [place] 02/02/23 at 1404, For 24 hours hEParin 100 UNIT/ML Lock Flush inj 500 Units 500 Units (5 mL), IV Lock, PRN Other, IV Flush, Starting on Mon02/01/23 at 1405, Until [place] 02/02/23 at 1404, For 24 hours, Do not flush if lock, PICC, or central line not in place; IV infusing or unable to flush. Given 02/01/2023 3:37 PM EDT 500 Units Hydrocortisone Sod Suc (PF) (Solu-Cortef) inj 100 mg 100 mg, IV Push, ONCE PRN Other, Hypersensitivity Reaction, Starting on Mon02/01/23 at 1405, Until [place] 02/02/23 at 1404, For 24 hours NSS infusion 500 mL, Intravenous, at 50 mL/hr, CONTINUOUS, Starting on Mon02/01/23 at 1515, Until [place] 02/02/23 at 0114 Start Infusion 02/01/2023 2:05 PM EDT 500 mL 50 mL/hr sodium chloride 0.9 % flush central line 10 mL 10 mL, IV Push, PRN Other, IV Flush, Starting on Mon02/01/23 at 1405, Until [place] 02/02/23 at 1404, For 24 hours, Do not flush if lock, PICC, or central line not in place; IV infusing or unable to flush. Given 02/01/2023 3:37 PM EDT 10 mL Inactive Administered Medications - up to 3 most recent administrations Medication Order MAR Action Action Date Dose Rate Site Iron Sucrose (Venofer) 300 mg in NSS 250 mL ivpb 300 mg, IV Piggyback, ONCE, 1 dose, On Mon02/01/23 at 1545, Administer over 90 Minutes Start Infusion 02/01/2023 2:07 PM EDT 300 mg 166.67 mL/hr documented in this encounter Advance Directives Documents on File Type Date Recorded Patient Registered Route Associate Expl anation Advance Directives and Living Will 04/29/2021 ADVANCE DIRECTIVE / LIVING WILL LIVING WILL AND HEALTH CARE POA Power of Imaging Technician 04/29/2021 POWER OF A TTORNEY HEALTH [...] the patient have Health Care Power of Imaging Technician? No Code Status History Code Status Date Activated Date Inactivated Comments Full Code 12/27/2021 2:50 PM 12/27/2021 8:02 PM This order reflects the patients wishes and were consensually agreed upon. Question Answer Comments Discussion of Advance Directives occurred with: Not Discussed Does the patient have a Living Will? No Does the patient have Health Care Power of Imaging Technician? No Full Code 03/31/2021 8:57 PM [...] Syed Bustos Spouse Emergency Contact Care Teams Casting Room Operator Relationship Specialty Start Date End Date Vanita Dunn MD [address] [place] [address] PCP - General Family Medicine 03/16/21 documented as of this encounter
--- OUTSIDE RECORDS SUMMARY | 2023-05-10 16:47 | External Medical Summary ---
Author Name Unknown Address Unknown Organization K[facility] [place] [address] Laboratory Report Ordering Provider Test Date Status CHELLEJAMES 02/01/2023 13:50:24 Final Observation Date Value Abnormality Reference (Units ) Status Nucleated erythrocytes/100 leukocytes [Ratio] in Blood by Automated count 02/01/2023 13:50:24 Final Performing Location [facility] [place] [address]
--- OUTSIDE RECORDS SUMMARY | 2023-05-10 16:47 | External Medical Summary ---
Author Name Unknown Address Unknown Organization K09:[facility] [place] [address] Laboratory Report Ordering Provider Test Date Status JACOB CORBETT 02/01/2023 13:50:24 Final Observation Date Value Abnormality Reference (Units ) Status SYNC LEUKOCYTES IN BLOOD BY AUTOMATED COUNT 02/01/2023 13:50:24 3.16 Below low normal 4.00-10.80 (K/uL) Final Segs 02/01/2023 13:50:24 53.8 40.0-75.0 (%) Final Lymphs % 02/01/2023 13:50:24 20.6 18.0-42.0 (%) Final Monos 02/01/2023 13:50:24 11.4 Above high normal 1.0-11.0 (%) Final Eosinophils 02/01/2023 13:50:24 13.3 Above high normal 0.0-6.0 (%) Final Basos 02/01/2023 13:50:24 0.9 0.0-2.0 (%) Final Absolute Segs 02/01/2023 13:50:24 1.70 Below low normal 1.80-7.70 (K/uL) Final Lymphs, absolute 02/01/2023 13:50:24 0.65 Below low normal 1.00-4.80 (K/ul) Final Monos, Abs 02/01/2023 13:50:24 0.36 0.00-1.10 (K/uL) Final Eos, Abs 02/01/2023 13:50:24 0.42 0.00-0.70 (K/uL) Final Basos, Abs 02/01/2023 13:50:24 0.03 0.00-0.20 (K/uL) Final Performing Location [facility] [address]
--- OUTSIDE RECORDS SUMMARY | 2023-05-10 16:47 | External Medical Summary ---
Author Name Unknown Address Unknown Organization K09:[facility] [place] [address] Laboratory Report Ordering Provider Test Date Status JACOB CORBETT 02/01/2023 13:50:24 Final Observation Date Value Abnormality Reference (Units ) Status WBC, Total 02/01/2023 13:50:24 3.16 Below low normal 4. 00-10.80 (K/uL) Final RBC 02/01/2023 13:50:24 2.63 3.85-5.15 (M/uL) Final Hemoglobin 02/01/2023 13:50:24 9.8 Below low normal 12 .0-15.3 (g/dL) Final HCT 02/01/2023 13:50:24 30.7 Below low normal 36. 0-45.2 (%) Final MCV 02/01/2023 13:50:24 116.7 81.5-97.5 (fL) Final MCH 02/01/2023 13:50:24 37.3 27.0-34.0 (pg) Final MCHC 02/01/2023 13:50:24 31.9 32.0-36.0 (g/dL) Final RDW 02/01/2023 13:50:24 16.5 11.5-15.5 (%) Final Platelets 02/01/2023 13:50:24 70 Below low normal 140 -400 (K/uL) Final MPV 02/01/2023 13:50:24 13.3 6.6-11.1 ( fL) Final Performing Location [facility] [place] [address]
--- OUTSIDE RECORDS SUMMARY | 2023-05-10 16:47 | External Medical Summary | Summary of Care ---
Author Name Unknown Organization [facility] Address [address] [place] [address] Phone [phone] Care Team Providers Care Liner Man Name Role Phone Vanita Dunn MD Primary Care Provid er Encounter Details Date Type Department Care Team Description 02/01/2023 Refill Hematology/Oncology Treatment, [address] [address] Chelle Sanchez MD [address] [place] [address] Iron deficiency anemia due to chronic blood loss*; Encounter for antineoplastic chemotherapy; Encounter for central line care Allergies Active Allergy Reactions Severity Noted Date Comments Adhesive Tape Itching 04/29/2020 Penicillins Rash 02/12/2008 Penicillin G 07/20/2018 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 documented as of this encounter (statuses as of 02/01/2023) Medications Medication Sig Dispensed Refills Start Date End Date Status nystatin (NYSTOP) 248922 UNIT/GM powder Apply topically to affected area 3 times a day. 60 g 1 0 Active Dexcom G6 Starting Gate Driver Device Use as directed. To test blood sugars 4 times a day Dx E11.9 1 Each 0 1 Active Dexcom G6 Transmitter Use as directed. To test blood sugars 4 times a day. Change every 90 days. Dx E11.9 1 Each 3 1 Active OneTouch Verio In Vitro Strip (Glucose Blood) TESTING once daily 100 Strip 3 1 Active OneTouch Delica Plus [id number] TESTING once daily 100 Each 3 1 [...] hemoglobin A1c goal of less than 7.0% ([facility]) inject 4.5mg (1 pen) under [...] hemoglobin A1c goal of less than 8.0% ([facility]) Inject 60 units subcutaneously at [...] TO ACCESSING. 30 g 0 3 Active Lidocaine-Prilocain e 2.5-2.5 % External [...] situation. 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 if a terminal clerk plan is made -continue lexapro Generalized weakness [...] pain 01/24/2012 01/17/2017 Genetic Sleep Disorder Research Other*[id number] 05/13/2011 04/07/2016 Obstructive sleep apnea 01/18/2011 12/27/19 [...] (Prevnar) 05/02/2019 Pneumococcal Conjugate Vacci ne, 20-valent ([id number]) 10/21/2022 Pneumococcal Polysaccharide PPV23 (Pneumovax) 06/01/2010 Seasonal [...] encounter Miscellaneous Notes * Telephone Encounter - Francine Okeefe RN - 02/01/2023 4:10 PM EDTSigned Prescriptions: Disp Refills Lidocaine-Prilocaine 2.5-2.5 % External Cr*30 g 0 Sig: Apply topically to affected area as needed for Other (when accessing port). APPLY TO SKIN OVER MEDIPORT &COVER 1HR PRIOR TO ACCESSING.Authorizing Provider: CHELLE SANCHEZ * Telephone Encounter - Chelle Sanchez MD - 02/01/2023 4:08 PM EDT E-prescribed Chelle Sanchez MD Hem/Onc * Telephone Encounter - Shelli Barakat RN - 02/01/2023 3:27 PM EDT Patient here today for Venofer infusion and says she is out of the Emla cream for her port and thiswill need reordered. documented in this encounter Plan of Treatment Upcoming Encounters Date Type Specialty Care Team Description 02/02/2023 Hospital Encounter Radiology 02/09/2023 Home Visit [facility] July Poe RN [address] [place] [address] 02/14/2023 Office Visit Gastroenterology Lyssa Stout CRNP [address] [place] [address] 02/16/2023 Telemedicine [facility] Emmy Aparicio CRNP [address] [facility] [place] [address] Garrett Bush, [facility] Wire Splicer [address] [place] [address] 02/22/2023 Hem/Onc Treatment Hematology Oncology [place], Chair [address] [address] 02/22/2023 Office Visit Pharmacy Pharmacist1, [facility] Sp [address] [place] [address] 03/01/2023 PulmDiagnostic Pulmonary Function West, Pft [address] [place] [address] 06/27/2023 Office Visit Hematology Oncology Chelle Sanchez MD [address] [place] [address] 07/31/2023 Office Visit Family Medicine [facility] [address] [facility] [place] [address] 10/04/2023 Office Visit Gynecology Obstetrics Renetta Martinez MD [address] [place] [address] Scheduled Procedures Name Priority Associated Diagnoses Date/Ti [...] this encounter Medical Devices Implanted Type Area Automatic Lathe Setter Device Identifier Shelf Expiration Date Model / Serial / Lot Microtech Sure Clip Implanted:Qty: 2 on 06/03/2020 by Janis Hatch DO at OR [facility] Clip N/A: Colon 04/21/2022 [facility]-F-[id number] 35-C-R / / [id number] documented as of this encounter Visit Diagnoses Diagnosis Iron deficiency anemia due to chronic blood loss- Primary Iron deficiency anemia secondary to blood loss (chronic) Encounter for antineoplastic chemotherapy Encounter for central line care Fitting and adjustment of vascular catheter documented in this encounter Advance Directives Documents on File Type Date Recorded Patient Global Sourcing Manager Expl anation Advance Directives and Living Will 04/29/2021 ADVANCE DIRECTIVE / LIVING WILL LIVING WILL AND HEALTH CARE POA Power of Virtual Assistant 04/29/2021 POWER OF A [facility] [...] the patient have Health Care Power of Virtual Assistant? No Code Status History Code Status Date Activated Date Inactivated Comments Full Code 12/27/2021 2:50 PM 12/27/2021 8:02 PM This order reflects the patients wishes and were consensually agreed upon. Question Answer Comments Discussion of Advance Directives occurred with: Not Discussed Does the patient have a Living Will? No Does the patient have Health Care Power of Virtual Assistant? No Full Code 03/31/2021 8:57 PM [...] Syed Bustos Spouse Emergency Contact Care Teams Liner Man Relationship Specialty Start Date End Date Vanita Dunn MD [address] [place], [place] [phone] PCP - General Family Medicine 03/16/21 documented as of this encounter
--- OUTSIDE RECORDS SUMMARY | 2023-05-10 16:47 | External Medical Summary ---
Author Name Unknown Address Unknown Organization K01:[facility] [address] [place] [address] Laboratory Report Ordering Provider Test Date Status JACOB CORBETT 02/01/2023 13:50:24 Final Observation Date Value Abnormality Reference (Units ) Status Ferritin 02/01/2023 13:50:24 87 13-150 (ng /mL) Final Performing Location [facility] [address] [place] [address]
--- OUTSIDE RECORDS SUMMARY | 2023-05-10 16:48 | External Medical Summary | Summary of Care ---
Author Name Unknown Organization [facility] Address [address] [facility] [place] [address] Phone [phone] Care Team Providers Care Hooker Off Name Role Phone Vanita Dunn MD Primary Care Provid er Reason for Visit * Reason Onset Date Comments [facility]: Maintenance 01/27/2023 Encounter Details Date Type Department Care Team Description 01/27/2023 Scheduled Telephone [facility], [facility] [address] [facility] [place] [address] Coordinator, [facility] [address] [facility] [place] [address] Allergies Active Allergy Reactions Severity Noted Date Comments Adhesive Tape Itching 04/29/2020 Penicillins Rash 02/12/2008 Penicillin G 07/20/2018 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 documented as of this encounter (statuses as of 01/27/2023) Medications Medication Sig Dispensed Refills Start Date End Date Status nystatin (NYSTOP) 169500 UNIT/GM powder Apply topically to affected area 3 times a day. 60 g 1 10/16/2019 Active Dexcom G6 Senior Drafter Device Use as directed. To test blood sugars 4 times a day Dx E11.9 1 Each 0 09/14/2020 Active Dexcom G6 Transmitter Use as directed. To test blood sugars 4 times a day. Change every 90 days. 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 if a stretch box tender plan is made -continue lexapro Generalized weakness [...] pain 01/24/2012 01/17/2017 Genetic Sleep Disorder Research Other*[id number] 05/13/2011 04/07/2016 Obstructive sleep apnea 01/18/2011 12/27/19 [...] as of this encounter (statuses as of 01/27/2023) Immunizations Name Administration Dates Next Due COVID-19 mRNA, LNP-s, No Pre serve, 2-Dose Series (Moderna) 01/05/2022,07/26/2021,12/21/2020,11/09 HEP A - Hepatitis A (Adult > 18 yrs) 09/24/2018, 03/26/2018 Hepatitis B, 20+ yrs 09/24/2018,04/23/2018,03/26 Pneumococcal Conjugate Vacc, 13 Valent (Prevnar) 05/02/2019 Pneumococcal Conjugate Vacci ne, 20-valent ([id number]) 10/21/2022 Pneumococcal Polysaccharide PPV23 (Pneumovax) 06/01/2010 Seasonal [...] encounter Miscellaneous Notes * Telephone Encounter - Jennifer Alexander RN - 01/27/2023 11:27 AM EDT [facility] Telephonic Nurse Follow-Up Call [facility] Subprogram: Focused Care Management (3-9 months) Follow Up Call Type: 24 hour follow up Acute issue requiring follow-up call: Other: status post chest x-ray demonstrated mild haziness in the right lung possibly last infiltrate Objective: 01/24/2023 2:50 PM 01/24/2023 11:28 AM 01/17/2023 10:28 AM 01/11/2023 11:11 AM 01/04/2023 1:30 PM VITALS ACROSS ENCOUNTERS BP 112/62 122/70 110/70 108/60 122/75 Pulse 68 75 80 67 70 Weight 113.4 kg BMI 50.47 BMI 50.49 kg/m2 Lab Results Component Value Date BLOOD, URINE - [facility] Large (A) 11/30/2022 PROTEIN - [facility] 6.1 12/06/2022 PROTEIN, URINE - [facility] 30 (A) 11/30/2022 ESTERASE, URINE - [facility] Moderate (A) 11/30/2022 WBC AUTO - [facility] 4.56 01/04/2023 WBC, URINE - [facility] 50+ (A) 11/30/2022 NITRITE, URINE - [facility] Negative 11/30/2022 QUANT URINE CULTURE GROWTH 10,000 to 100,000 colonies/mL Yeast (A) 11/30/2022 Lab Results Component Value Date WBC AUTO - [facility] 4.56 01/04/2023 HGB - [facility] 10.3 (L) 01/04/2023 PLATELET AUTO - [facility] 97 (L) 01/04/2023 Lab Results Component Value Date SODIUM - [facility] 144 12/06/2022 POTASSIUM - [facility] 4.6 12/06/2022 CO2 - [facility] 25 12/06/2022 CREATININE - [facility] 0.6 12/06/2022 ESTIMATED GLOMERULAR FILTRATION RATE - [facility] >90 12/06/2022 ALBUMIN - [facility] 3.1 (L) 12/06/2022 AST - [facility] 37 (H) 12/06/2022 ALT - [facility] 32 12/06/2022 ALKALINE PHOSPHATASE - [facility] 103 12/06/2022 No results found for: PRO BNP, LEFT VENTRICULAR EJECTION FRACTION Remote Patient Monitoring: NONE Oxygen Needs: NO supplemental oxygen needs identified DME Needs: NO DME needs identified Medications: No medication or dose adjustments made during acute episode Subjective: Condition Status: Improvement in symptoms but not at baseline Current Concerns: FC call for f/u on patient s/p CXR per [facility] PAC states demonstrated mild haziness in the right lung possibly last infiltrate . JEYSON ordered CT of chest to be done stat today. Other asset protection officer sent tiger text to [facility] master scheduler Angela Duque , on [facility] [employer] Medicine text master scheduler roletoday to schedule same. JEYSON yesterday also sent msg to Pulmonolgist stating patient needed an appt as previous appt was cancelled. Patient did not have current pulmonary appt scheduled. Call to patient and spoke to patient. O2 sat today 95% on room air HR 64 Uses bipap at HS Has cough- non productive Has not been using HHN Instructed to use HHN as ordered Edema in bilateral feet- at baseline Taking Benzonate Increase fluid intake to aide in expectoration Patient to schedule f/u appt with pulmonary Denies SOB, chest pain, chest tightness Disposition: Follow up call scheduled for tomorrow with DEVAN Fixture Maker Future Visits Scheduled: Future Appointments-next 60 days Date/Time Provider Specialty Dept Phone 01/27/2023 5:00 PM [facility] Fixture Maker [facility] [phone] 01/28/2023 2:30 PM Nurse [facility] [phone] 02/01/2023 1:30 PM Chair 5 Hem Onc [place] [facility] Oncology [phone] 02/01/2023 1:40 PM [facility] Pharmacist1 Pharmacy [phone] 02/09/2023 8:30 AM July Poe RN [facility] [phone] 02/14/2023 12:30 PM (Arrive by 12:15 PM) ZAK Bolton Gastroenterology [phone] 02/16/2023 12:30 PM Garrett Bush [facility] Concrete Sculptor; ZAK Bowden [facility] [phone] 03/01/2023 1:00 PM P[facility] [phone] 06/27/2023 1:45 PM (Arrive by 1:30 PM) Tono Sanchez MD Hematology Oncology [phone] 07/31/2023 1:20 PM (Arrive by 1:05 PM) Vanita Dunn MD Family Medicine [phone] 10/04/2023 4:00 PM (Arrive by 3:45 PM) Renetta Martinez MD Gynecology Obstetrics [phone] Jennifer Alexander RN documented in this encounter Plan of Treatment Upcoming Encounters Date Type Specialty Care Team Description 01/28/2023 Scheduled Telephone [facility], Nurse [facility] [address] [place] [address] 02/01/2023 Hem/Onc Treatment Hematology [place]cology [place], Chair 5 Hem Onc [place] [place] [address] 02/01/2023 Office Visit Pharmacy Pharmacist1, [facility] [address] [place] [address] 02/02/2023 Appointment Radiology 02/09/2023 Home Visit [facility] July Poe RN [address] [facility] [place] [address] 02/14/2023 Office Visit Gastroenterology Lyssa Stout CRNP [address] [facility] [place] [address] 02/16/2023 Telemedicine [facility] Emmy Aparicio CRNP [address] [facility] [place] [address] Garrett Bush, [facility] Concrete Sculptor [address] [place] [address] 03/01/2023 PulmDiagnostic Pulmonary Function [place], Pft [address] [facility] [place] [address] 06/27/2023 Office Visit Hematology Oncology Tono Sanchez MD [address] [place] [address] 07/31/2023 Office Visit Family Medicine Vanita Dunn MD [address] [place] [address] 10/04/2023 Office Visit Gynecology Obstetrics Renetta Martinez MD [address] [facility] [place] [address] Scheduled Procedures Name Priority Associated Diagnoses Date/Ti [...] 03/30/2023 022, 01/11/2019, 02/03/2017, Additional history exists HgA1C 06/08/2023 12/06/2022, 09/0 04/2022, 01/24/2022, Additional history exists TSH FOR THYROID MEDICATION MONITORING YEARLY 07/06/2023 07/06/2022, 05/19/2022, 06/10/2021, Additional history exists GFR - Renal Function 12/07/2023 12/06/2022, 08/30/2022, 05/19/2022, Additional history exists Mammogram 12/10/2023 12/09/2022, [...] this encounter Medical Devices Implanted Type Area Filler Shredding Machine Loader Device Identifier Shelf Expiration Date Model / Serial / Lot Microtech Sure Clip Implanted:Qty: 2 on 06/03/2020 by Janis Hatch, DO at OR [facility] Clip N/A: Colon 04/21/2022 [facility]-F-26-2 35-C-R / / [id number] documented as of this encounter Advance Directives Documents on File Type Date Recorded Patient Technical Support Analyst Expl anation Advance Directives and Living Will 04/29/2021 ADVANCE DIRECTIVE / LIVING WILL LIVING WILL AND HEALTH CARE POA Power of Metrology Specialist 04/29/2021 POWER OF A [facility] [...] the patient have Health Care Power of Metrology Specialist? No Code Status History Code Status Date Activated Date Inactivated Comments Full Code 12/27/2021 2:50 PM 12/27/2021 8:02 PM This order reflects the patients wishes and were consensually agreed upon. Question Answer Comments Discussion of Advance Directives occurred with: Not Discussed Does the patient have a Living Will? No Does the patient have Health Care Power of Metrology Specialist? No Full Code 03/31/2021 8:57 PM 04/03/2021 [...] Agents on File Name Relationship Healthcare Agent [facility] Communication Syed Bustos Spouse Emergency Contact Care Teams Hooker Off Relationship Specialty Start Date End Date Vanita Dunn MD [address] [place], [place] [id number] PCP - General Family Medicine 03/16/21 documented as of this encounter
--- OUTSIDE RECORDS SUMMARY | 2023-05-10 16:48 | External Medical Summary | Summary of Care ---
Author Name Unknown Organization [facility] Address [address] [facility] [place] [address] Phone [phone] Care Team Providers Care Social Sciences Chair Name Role Phone Vanita Dunn MD Primary Care Provid er Reason for Visit * Reason Onset Date Comments [facility]: Maintenance 01/28/2023 Encounter Details Date Type Department Care Team Description 01/28/2023 Scheduled Telephone [facility], [facility] [address] [place] [address] [facility], Nurse [facility] [address] [place] [address] Allergies Active Allergy Reactions Severity Noted Date Comments Adhesive Tape Itching 04/29/2020 Penicillins Rash 02/12/2008 Penicillin G 07/20/2018 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 documented as of this encounter (statuses as of 01/28/2023) Medications Medication Sig Dispensed Refills Start Date End Date Status nystatin (NYSTOP) 876345 UNIT/GM powder Apply topically to affected area 3 times a day. 60 g 1 10/16/2019 Active Dexcom G6 Vine Pruner Device Use as directed. To test blood sugars 4 times a day Dx E11.9 1 Each 0 09/14/2020 Active Dexcom G6 Transmitter Use as directed. To test blood sugars 4 times a day. Change every 90 days. 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) TAKE 1 TABLET BY MOUTH TWICE DAILY [...] as of this encounter (statuses as of 01/28/2023) Active Problems Problem Noted Date Thrombocytopenia 01/17/2023 [...] as of this encounter (statuses as of 01/28/2023) Resolved Problems Problem Noted Date Resolved Date [...] will improve if a long term care phlebotomist plan is made -continue lexapro Generalized weakness [...] pain 01/24/2012 01/17/2017 Genetic Sleep Disorder Research Other*[id number] 05/13/2011 04/07/2016 Obstructive sleep apnea 01/18/2011 12/27/19 [...] as of this encounter (statuses as of 01/28/2023) Immunizations Name Administration Dates Next Due COVID-19 mRNA, LNP-s, No Pre serve, 2-Dose Series (Moderna) 01/05/2022,07/26/2021,12/21/2020,11/09 HEP A - Hepatitis A (Adult > 18 yrs) 09/24/2018, 03/26/2018 Hepatitis B, 20+ yrs 09/24/2018,04/23/2018,03/26 Pneumococcal Conjugate Vacc, 13 Valent (Prevnar) 05/02/2019 Pneumococcal Conjugate Vacci ne, 20-valent ([id number]) 10/21/2022 Pneumococcal Polysaccharide PPV23 (Pneumovax) 06/01/2010 Seasonal [...] encounter Miscellaneous Notes * Telephone Encounter - Tamara Arias RN - 01/28/2023 11:13 AM EDT FC call for f/u on patient s/p CXR PA-C states demonstrated mild haziness in the right lung possibly last infiltrate . PA-C ordered CT of chest to be done stat 01/27. Spoke to family member who reports Frida is in [place] for the weekend, she is unsure if CT completed. Reports she thinks she is feeling well since she did leave town. documented in this encounter Plan of Treatment Upcoming Encounters Date Type Specialty Care Team Description 02/01/2023 Hem/Onc Treatment Hematology Oncology Park, Chair 5 Hem Onc Scenery 200 [facility] [place] [address] 02/01/2023 Office Visit Pharmacy Pharmacist1, [facility] 200 [facility] [place] [address] 02/02/2023 Appointment Radiology 02/09/2023 Home Visit [facility] July Poe RN [address] [place] [address] 02/14/2023 Office Visit Gastroenterology Lyssa Stout CRNP [address] [place] [address] 02/16/2023 Telemedicine [facility] Emmy Aparicio, ZAK [address] [place] [address] Garrett Bush, Community Health Import Customer Service Manager [address] [place] [address] 03/01/2023 PulmDiagnostic Pulmonary Function West, Pft [address] [place] [address] 06/27/2023 Office Visit Hematology Oncology Tono Sanchez MD 200 [place] [address] 07/31/2023 Office Visit Family Medicine Vanita Dunn MD [address] [place], [place] [address] 10/04/2023 Office Visit Gynecology Obstetrics Renetta Martinez MD [address] [facility] [place] [address] Scheduled Procedures Name Priority Associated Diagnoses Date/Ti [...] this encounter Medical Devices Implanted Type Area Metallurgical Inspector Device Identifier Shelf Expiration Date Model / Serial / Lot Microtech Sure Clip Implanted:Qty: 2 on 06/03/2020 by Janis Hatch DO at OR [facility] Clip N/A: Colon 04/21/2022 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 No Code Status History Code Status Date Activated Date Inactivated Comments Full Code 12/27/2021 2:50 PM 12/27/2021 8:02 PM This order reflects the patients wishes and were consensually agreed upon. Question Answer Comments Discussion of Advance Directives occurred with: Not Discussed Does the patient have a Living Will? No Does the patient have Health Care Power of Color Tester? No Full Code 03/31/2021 8:57 PM 04/03/2021 [...] File Name Relationship Healthcare Agent [facility] p Communication Syed Bustos Spouse Emergency Contact Care Teams Social Sciences Chair Relationship Specialty Start Date End Date Vanita Dunn MD [address] [place] [address] PCP - General Family Medicine 03/16/21 documented as of this encounter
--- OUTSIDE RECORDS SUMMARY | 2023-05-10 16:48 | External Medical Summary | Summary of Care ---
Author Name Unknown Organization [facility] Address [address] [facility] [place] [address] Phone [phone] Care Team Providers Care Shrimp Packer Name Role Phone Vanita Dunn MD Primary Care Provid er Encounter Details Date Type Department Care Team Description 01/24/2023 Telephone [facility] [address] [place] [address] Vanita Dunn MD [address] [place] [address] Allergies Active Allergy Reactions Severity Noted Date Comments Adhesive Tape Itching 04/29/2020 Penicillins Rash 02/12/2008 Penicillin G 07/20/2018 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 documented as of this encounter (statuses as of 01/27/2023) Medications Medication Sig Dispensed Refills Start Date End Date Status nystatin (NYSTOP) 333136 UNIT/GM powder Apply topically to affected area 3 times a day. 60 g 1 10/16/19 20 Active Dexcom G6 Mobile Homes Repairer Device Use as directed. To test blood [...] 3 10/29/19 21 Active OneTouch Delica Plus Owluvo27C TESTING once daily 100 Each 3 10/29/19 [...] directed 60 Each 5 10/06/19 22 Active Lidocaine-Prilocai ne 2.5-2.5 % External Cream (Emla)Indications: Encounter for antineoplastic chemotherapy Apply topically to affected area as needed for Other (when accessing port). APPLY TO SKIN OVER MEDIPORT & COVER 1HR PRIOR TO ACCESSING. 30 g 0 02/11/20 22 Active Trulicity 4.5 MG/0.5ML Subcutaneous Solution [...] wound 85 g 11 07/06/20 22 Active Atorvastatin Calcium 80 MG Oral Tablet [...] bedtime. 360 Tablet 1 10/18/19 23 Active Fluticasone-Salmet jayme 250-50 MCG/ACT Inhalation Aerosol Powder Breath Activated (Advair Diskus) INHALE 1 PUFF BY MOUTH 2 TIMES DAILY. 60 Each 0 11/24/19 23 Active Albuterol Sulfate (2.5 MG/3ML) 0.083% [...] 90 Tablet 1 07/29/20 22 023 Discontinued Escitalopram Oxalate 20 MG Oral Tablet (Lexapro)Indicatio ns:Recurrent major depressive disorder, in partial remission (HCC) TAKE 1 TABLET BY MOUTH DAILY 90 Tablet 0 08/04/20 22 023 Discontinued Gabapentin 300 MG Oral Capsule (Neurontin)Indicat ions:DM type 2 with diabetic peripheral neuropathy (HCC),Diabetic foot (HCC) TAKE 1 CAPSULE BY MOUTH EVERY MORNING, 1 CAPSULE MIDDAY, AND 2 CAPSULES IN THE EVENING, MAY TAKE AN EXTRA DOSE IN THE MORNING AND MIDDAY IF NEEDED FOR PAIN *MAX DAILY AMOUNT: 6 CAPSULES* 360 Capsule 0 11/11/19 023 Discontinued Oxybutynin Chloride 5 MG Oral Tablet (Ditropan)Indicati ons: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,Other cerebral palsy (HCC) TAKE 1 TABLET BY MOUTH TWICE DAILY 180 Tablet 0 11/11/19 23 023 Discontinued Hospital, Clinic, or Other [...] Achilles tendinitis, right leg 04/08/2019 0 09/13/2021 residential resident 04/08/2019 05/02/2019 Ambulatory dysfunction 04/04/2019 2 [...] pain 01/24/2012 01/17/2017 Genetic Sleep Disorder Research Other*[id number] 05/13/2011 04/07/2016 Obstructive sleep apnea 01/18/2011 12/27/19 [...] (Prevnar) 05/02/2019 Pneumococcal Conjugate Vacci ne, 20-valent ([id number]) 10/21/2022 Pneumococcal Polysaccharide PPV23 (Pneumovax) 06/01/2010 Seasonal [...] encounter Miscellaneous Notes * Telephone Encounter - Preethi Colón LPN - 01/27/2023 3:18 PM EDT Faxed to [facility] * Telephone Encounter - Vanita Dunn MD - 01/24/2023 5:18 PM EDT Please see #2 DME orders from today's office visit for processing. Thank you in advance. AG documented in this encounter Plan of Treatment Upcoming Encounters Date Type Specialty Care Team Description 01/27/2023 Scheduled Telephone [facility] Technician, [facility] [address] [place] [address] 01/28/2023 Scheduled Telephone [facility], Nurse [facility] [address] [place] [address] 02/01/2023 Hem/Onc Treatment Hematology Oncology Park, Chair 5 Hem Onc Scenery 200 [facility] [place] [address] 02/01/2023 Office Visit Pharmacy Pharmacist1, [facility] 200 [facility] [place] [address] 02/02/2023 Appointment Radiology 02/09/2023 Home Visit [facility] July Poe RN [address] [place] [address] 02/14/2023 Office Visit Gastroenterology Lyssa Stout CRNP [address] [place] [address] 02/16/2023 Telemedicine [facility] Emmy Aparicio CRNP [address] [facility] [place] [address] Garrett Bush, Community Health Support Services Manager [address] [place] [address] 03/01/2023 PulmDiagnostic Pulmonary Function West, Pft 132 [facility] [place] [address] 06/27/2023 Office Visit Hematology Oncology Tono Sanchez MD [address] [place] [address] 07/31/2023 Office Visit Family Medicine Vanita Dunn MD [address] [place] [address] 10/04/2023 Office Visit Gynecology Obstetrics Renetta Martinez MD [address] [place] [address] Scheduled Procedures Name Priority Associated Diagnoses Date/Ti [...] this encounter Medical Devices Implanted Type Area Market Consultant Device Identifier Shelf Expiration Date Model / Serial / Lot Microtech Sure Clip Implanted:Qty: 2 on 06/03/2020 by Janis Hatch, DO at OR [facility] Clip N/A: Colon 04/21/2022 [facility]-F-26-2 35-C-R / / [id number] documented as of this encounter Advance Directives Documents on File Type Date Recorded Patient Resource Specialist Expl anation Advance Directives and Living Will 04/29/2021 ADVANCE DIRECTIVE / LIVING WILL LIVING WILL AND HEALTH CARE POA Power of Wire Charger 04/29/2021 POWER OF A [facility] [...] the patient have Health Care Power of Wire Charger? No Code Status History Code Status Date Activated Date Inactivated Comments Full Code 12/27/2021 2:50 PM 12/27/2021 8:02 PM This order reflects the patients wishes and were consensually agreed upon. Question Answer Comments Discussion of Advance Directives occurred with: Not Discussed Does the patient have a Living Will? No Does the patient have Health Care Power of Wire Charger? No Full Code 03/31/2021 8:57 PM 04/03/2021 [...] on File Name [facility] Communication Syed Bustos Spouse Emergency Contact Care Teams Shrimp Packer Relationship Specialty Start Date End Date Vanita Dunn MD [address] [place] [address] PCP - General Family Medicine 03/16/21 documented as of this encounter
--- OUTSIDE RECORDS SUMMARY | 2023-05-10 16:48 | External Medical Summary | Summary of Care ---
Author Name Unknown Organization [facility] Address [address] [facility] [place] [address] Phone [phone] Care Team Providers Care Sleeve Baster Name Role Phone Vanita Dunn MD Primary Care Provid er Reason for Visit * Reason Onset Date Comments [facility]: Maintenance 01/30/2023 Encounter Details Date Type Department Care Team Description 01/30/2023 Telephone [facility], [facility] 132 [place] [address] [facility], Nurse [facility] [address] [place] [address] [facility]: Maintenance Allergies Active Allergy Reactions Severity Noted Date Comments Adhesive Tape Itching 04/29/2020 Penicillins Rash 02/12/2008 Penicillin G 07/20/2018 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 documented as of this encounter (statuses as of 01/30/2023) Medications Medication Sig Dispensed Refills Start Date End Date Status nystatin (NYSTOP) 345862 UNIT/GM powder Apply topically to affected area 3 times a day. 60 g 1 10/16/2019 Active Dexcom G6 Planning Management It Specialist Device Use as directed. To test blood sugars 4 times a day Dx E11.9 1 Each 0 09/14/2020 Active Dexcom G6 Transmitter Use as directed. To test blood sugars 4 times a day. Change every 90 days. Dx E11.9 1 Each 3 09/14/2020 Active OneTouch Verio In Vitro Strip (Glucose Blood) TESTING once daily 100 Strip 3 10/29/2020 Active OneTouch Delica Plus Cyfnaz93Q TESTING once daily 100 Each 3 10/29/2020 [...] goal of less than 8.0% ([facility]) 35 Units at breakfast, 39 Units [...] goal of less than 8.0% ([facility]) Inject 60 units subcutaneously at bedtime 45 mL 3 01/24/2023 Active Nadolol 40 MG Oral Tablet (Corgard)Indication s:HTN, goal below 140/90 TAKE 1 TABLET BY MOUTH DAILY 90 Tablet 3 01/26/2023 Active Oxybutynin Chloride 5 MG Oral Tablet (Ditropan)Indicatio ns: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,Other cerebral palsy ([facility]) TAKE 1 TABLET BY MOUTH TWICE [...] as of this encounter (statuses as of 01/30/2023) Active Problems Problem Noted Date Thrombocytopenia 01/17/2023 [...] as of this encounter (statuses as of 01/30/2023) Resolved Problems Problem Noted Date Resolved Date [...] pain 01/24/2012 01/17/2017 Genetic Sleep Disorder Research Other*[id number] 05/13/2011 04/07/2016 Obstructive sleep apnea 01/18/2011 12/27/19 [...] as of this encounter (statuses as of 01/30/2023) Immunizations Name Administration Dates Next Due COVID-19 mRNA, LNP-s, No Pre serve, 2-Dose Series (Moderna) 01/05/2022,07/26/2021,12/21/2020,11/09 HEP A - Hepatitis A (Adult > 18 yrs) 09/24/2018, 03/26/2018 Hepatitis B, 20+ yrs 09/24/2018,04/23/2018,03/26 Pneumococcal Conjugate Vacc, 13 Valent (Prevnar) 05/02/2019 Pneumococcal Conjugate Vacci ne, 20-valent ([id number]) 10/21/2022 Pneumococcal Polysaccharide PPV23 (Pneumovax) 06/01/2010 Seasonal [...] Telephone Encounter - Michelle Vyas RN - 01/30/2023 9:30 AM EDT Marla from [employer] calling to let us know that they are canceling chest xray. She said thepatient told her it was already completed. Xray results in chart form 01/26/23 Michelle Vyas. RN [facility] technical product manager [phone] documented in this encounter Plan of Treatment Upcoming Encounters Date Type Specialty Care Team Description 02/01/2023 Hem/Onc Treatment Hematology Oncology Park, Chair 5 Hem Onc Scenery [address] [facility] [place] [address] 02/01/2023 Office Visit Pharmacy Pharmacist1, [facility] [address] [place] [address] 02/02/2023 Appointment Radiology 02/09/2023 Home Visit [facility] July Poe RN [address] [place] [address] 02/14/2023 Office Visit Gastroenterology Lyssa Stout CRNP [address] [place] [address] 02/16/2023 Telemedicine [facility] Emmy Aparicio CRNP [address] [facility] [place] [address] Garrett Bush, Community Health Motorman/Woman [address] [place] [address] 03/01/2023 PulmDiagnostic Pulmonary Function West, Pft [address] [place] [address] 06/27/2023 Office Visit Hematology Oncology Tono Sanchez MD 200 [place] [address] 07/31/2023 Office Visit Family Medicine Vanita Dunn MD [address] [place] [address] 10/04/2023 Office Visit Gynecology Obstetrics Renetta Martinez MD [address] [place] [address] Scheduled Procedures Name Priority Associated Diagnoses Date/Ti [...] this encounter Medical Devices Implanted Type Area Corporate Manager Device Identifier Shelf Expiration Date Model / Serial / Lot Microtech Sure Clip Implanted:Qty: 2 on 06/03/2020 by Hatch, Marten B, DO at OR [facility] Clip N/A: Colon 04/21/2022 [facility]-F-26-2 35-C-R / / [id number] documented as of this encounter Advance Directives Documents on File Type Date Recorded Patient Qa Specialist Expl anation Advance Directives and Living Will 04/29/2021 ADVANCE DIRECTIVE / LIVING WILL LIVING WILL AND HEALTH CARE POA Power of Mobile Application Engineer 04/29/2021 POWER OF A TTORNEY HEALTH [...] the patient have Health Care Power of Mobile Application Engineer? No Code Status History Code Status Date Activated Date Inactivated Comments Full Code 12/27/2021 2:50 PM 12/27/2021 8:02 PM This order reflects the patients wishes and were consensually agreed upon. Question Answer Comments Discussion of Advance Directives occurred with: Not Discussed Does the patient have a Living Will? No Does the patient have Health Care Power of Mobile Application Engineer? No Full Code 03/31/2021 8:57 PM [...] Syed Bustos Spouse Emergency Contact Care Teams Sleeve Baster Relationship Specialty Start Date End Date Vanita Dunn MD [address] [place] [address] PCP - General Family Medicine 03/16/21 documented as of this encounter
--- OUTSIDE RECORDS SUMMARY | 2023-05-10 16:48 | External Medical Summary | Summary of Care ---
Author Name Unknown Organization [facility] Address [address] [place] [address] Phone [phone] Care Team Providers Care Account Manager Forest Service Name Role Phone Vaniat Dunn MD Primary Care Provid er Reason for Visit * Reason Onset Date Comments Appointment 01/27/2023 Encounter Details Date Type Department Care Team Description 01/27/2023 Telephone [facility], [facility] [address] [facility] [place] [address] Services, Scheduling [address] [place] [address] Appointment (/) Allergies Active Allergy Reactions Severity Noted Date Comments Adhesive Tape Itching 04/29/2020 Penicillins Rash 02/12/2008 Penicillin G 07/20/2018 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 documented as of this encounter (statuses as of 01/27/2023) Medications Medication Sig Dispensed Refills Start Date End Date Status nystatin (NYSTOP) 106883 UNIT/GM powder Apply topically to affected area 3 times a day. 60 g 1 10/16/2019 Active Dexcom G6 Japanese Professor Device Use as directed. To test blood sugars 4 times a day Dx E11.9 1 Each 0 09/14/2020 Active Dexcom G6 Transmitter Use as directed. To test blood sugars 4 times a day. Change every 90 days. Dx E11.9 1 Each 3 09/14/2020 Active OneTouch Verio In Vitro Strip (Glucose Blood) TESTING once daily 100 Strip 3 10/29/2020 Active OneTouch Delica Plus Xpychv14M TESTING once daily 100 Each 3 10/29/2020 [...] 8.0% ([facility]) Inject 60 units subcutaneously at [...] pain 01/24/2012 01/17/2017 Genetic Sleep Disorder Research Other*[id number] 05/13/2011 04/07/2016 Obstructive sleep apnea 01/18/2011 12/27/19 [...] (Prevnar) 05/02/2019 Pneumococcal Conjugate Vacci ne, 20-valent ([id number]) 10/21/2022 Pneumococcal Polysaccharide PPV23 (Pneumovax) 06/01/2010 Seasonal [...] Miscellaneous Notes * Telephone Encounter - THAD Melissa - 01/27/2023 10:10 AM EDT Per Request via Rachel Tomlinson she advised to fax over referral for xray.... Called [employer] was unable to s/w rep.. fax over referral. documented in this encounter Plan of Treatment Upcoming Encounters Date Type Specialty Care Team Description 01/27/2023 Scheduled Telephone [facility] Game Repair Technician, [facility] [address] [place] [address] 01/28/2023 Scheduled Telephone [facility], Nurse [facility] [address] [place] [address] 02/01/2023 Hem/Onc Treatment Hematology Oncology Park, Chair 5 Hem Onc Scenery [address] [place] [address] 02/01/2023 Office Visit Pharmacy Pharmacist1, [facility] [address] [place] [address] 02/09/2023 Home Visit [facility] July Poe RN [address] [place] [address] 02/16/2023 Telemedicine [facility] Emmy Aparicio CRNP [address] [facility] [place] [address] Garrett Bush, Community Health Real Estate Salesperson [address] [place] [address] 03/01/2023 PulmDiagnostic Pulmonary Function West, Pft [address] [place] [address] 03/08/2023 Office Visit Gastroenterology Lyssa Stout CRNP [address] [place] [address] 06/27/2023 Office Visit Hematology Oncology Tono Sanchez MD [address] [place] [address] 07/31/2023 Office Visit Family Medicine MonaVantia MD [address] [place] [address] 10/04/2023 Office Visit Gynecology Obstetrics Renetta Martinez MD [address] [facility] [place] [address] Scheduled Procedures Name Priority Associated Diagnoses Date/Ti [...] this encounter Medical Devices Implanted Type Area Dianetic Counselor Device Identifier Shelf Expiration Date Model / Serial / Lot Microtech Sure Clip Implanted:Qty: 2 on 06/03/2020 by Janis Hatch DO at OR [facility] Clip N/A: Colon 04/21/2022 [facility]-F-26-2 35-C-R / / [id number] documented as of this encounter Advance Directives Documents on File Type Date Recorded Patient Hosiery Mater Expl anation Advance Directives and Living Will 04/29/2021 ADVANCE DIRECTIVE / LIVING WILL LIVING WILL AND HEALTH CARE POA Power of Interlibrary Loan Services Librarian 04/29/2021 POWER OF A TTORNEY HEALTH [...] the patient have Health Care Power of Interlibrary Loan Services Librarian? No Code Status History Code Status Date Activated Date Inactivated Comments Full Code 12/27/2021 2:50 PM 12/27/2021 8:02 PM This order reflects the patients wishes and were consensually agreed upon. Question Answer Comments Discussion of Advance Directives occurred with: Not Discussed Does the patient have a Living Will? No Does the patient have Health Care Power of Interlibrary Loan Services Librarian? No Full Code 03/31/2021 8:57 PM [...] Bustos Spouse Emergency Contact Care Teams Account Manager Forest Service Relationship Specialty Start Date End Date Vanita Dunn MD [address] [facility] [place] [address] PCP - General Family Medicine 03/16/21 documented as of this encounter
--- OUTSIDE RECORDS SUMMARY | 2023-05-10 16:48 | External Medical Summary | Summary of Care ---
Author Name Unknown Organization [facility] Address [address] [place] [address] Phone [phone] Care Team Providers Care Leak Detection Engineer Name Role Phone Vanita Dunn MD Primary Care Provid er Reason for Visit * Reason Onset Date Comments Appointment 01/27/2023 Encounter Details Date Type Department Care Team Description 01/27/2023 Telephone [facility], [facility] [address] [facility] [place] [address] Services, Scheduling [address] [place] [address] Appointment (///) Allergies Active Allergy Reactions Severity Noted Date Comments Adhesive Tape Itching 04/29/2020 Penicillins Rash 02/12/2008 Penicillin G 07/20/2018 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 documented as of this encounter (statuses as of 01/27/2023) Medications Medication Sig Dispensed Refills Start Date End Date Status nystatin (NYSTOP) 872322 UNIT/GM powder Apply topically to affected area 3 times a day. 60 g 1 10/16/2019 Active Dexcom G6 Barmaid Device Use as directed. To test blood sugars 4 times a day Dx E11.9 1 Each 0 09/14/2020 Active Dexcom G6 Transmitter Use as directed. To test blood sugars 4 times a day. Change every 90 days. Dx E11.9 1 Each 3 09/14/2020 Active OneTouch Verio In Vitro Strip (Glucose Blood) TESTING once daily 100 Strip 3 10/29/2020 Active OneTouch Delica Plus [id number] TESTING once daily 100 Each 3 10/29/2020 [...] goal of less than 8.0% ([facility]) Inject 60 units subcutaneously at [...] pain 01/24/2012 01/17/2017 Genetic Sleep Disorder Research Other*[id number] 05/13/2011 04/07/2016 Obstructive sleep apnea 01/18/2011 12/27/19 [...] (Prevnar) 05/02/2019 Pneumococcal Conjugate Vacci ne, 20-valent ([id number]) 10/21/2022 Pneumococcal Polysaccharide PPV23 (Pneumovax) 06/01/2010 Seasonal [...] Telephone Encounter - THAD Melissa - 01/27/2023 12:55 PM EDT Per Request via TT Yoly Tomlinson to schedule CT Scan... Called Jose David jenkins s/w Renetta and schedule appt at 3:00pm. Called pt she advised that should be fine she might be a couple mins late I advised her if they feel she is running late to call jose david jenkins. documented in this encounter Plan of Treatment Upcoming Encounters Date Type Specialty Care Team Description 01/27/2023 Imaging Radiology 01/27/2023 Scheduled Telephone [facility] Refrigeration Engineer, [facility] [address] [place] [address] 01/28/2023 Scheduled Telephone [facility] Region, Nurse [place] [address] [place] [address] 02/01/2023 Hem/Onc Treatment Hematology Oncology Park, Chair 5 Hem Onc Scenery 200 [facility] [place] [address] 02/01/2023 Office Visit Pharmacy Pharmacist1, [facility] [address] [facility] [place] [address] 02/09/2023 Home Visit [facility] July Poe RN [address] [place] [address] 02/14/2023 Office Visit Gastroenterology Lyssa Stout CRNP [address] [facility] [place] [address] 02/16/2023 Telemedicine [facility] Emmy Aparicio CRNP [address] [facility] [place] [address] Garrett Bush, Community [facility] Sweat Band Sewer [address] [place] [address] 03/01/2023 PulmDiagnostic Pulmonary Function West, Pft [address] [place] [address] 06/27/2023 Office Visit Hematology Oncology Tono Sanchez MD 200 [place] [place] [address] 07/31/2023 Office Visit Family Medicine OmnaVanita MD [address] [place] [address] 10/04/2023 Office Visit Gynecology Obstetrics Renetta Martinez MD [address] [facility] [place] [address] Scheduled Procedures Name Priority Associated Diagnoses Date/Ti [...] this encounter Medical Devices Implanted Type Area Cable Ferry Operator Device Identifier Shelf Expiration Date Model / Serial / Lot Microtech Sure Clip Implanted:Qty: 2 on 06/03/2020 by Janis Hatch, DO at OR [facility] Clip N/A: Colon 04/21/2022 [id number]-F-[id number] 35-C-R / / [id number] documented as of this encounter Advance Directives Documents on File Type Date Recorded Patient Police Artist Expl anation Advance Directives and Living Will 04/29/2021 ADVANCE DIRECTIVE / LIVING WILL LIVING WILL AND HEALTH CARE POA Power of Chip Machine Operator 04/29/2021 POWER OF A TTORNEY [...] the patient have Health Care Power of Chip Machine Operator? No Code Status History Code Status Date Activated Date Inactivated Comments Full Code 12/27/2021 2:50 PM 12/27/2021 8:02 PM This order reflects the patients wishes and were consensually agreed upon. Question Answer Comments Discussion of Advance Directives occurred with: Not Discussed Does the patient have a Living Will? No Does the patient have Health Care Power of Chip Machine Operator? No Full Code 03/31/2021 8:57 [...] Agents on File Name Relationship Healthcare Agent [facility] p Communication Syed Bustos Spouse Emergency Contact Care Teams Leak Detection Engineer Relationship Specialty Start Date End Date Vanita Dunn MD [address] [place] [phone] PCP - General Family Medicine 03/16/21 documented as of this encounter
--- OUTSIDE RECORDS SUMMARY | 2023-05-10 16:48 | External Medical Summary | Summary of Care ---
Author Name Unknown Organization [facility] Address [address] [facility] [place] [place] [address] Phone [phone] Care Team Providers Care Floor Specialist Name Role Phone Vanita Dunn MD Primary Care Provid er Reason for Visit * Reason Onset Date Comments [facility]: Maintenance 01/27/2023 Encounter Details Date Type Department Care Team Description 01/27/2023 Scheduled Telephone [facility], [facility] [address] [facility] [place] [address] Coordinator, [facility] [address] [facility] [place] [address] Allergies Active Allergy Reactions Severity Noted Date Comments Adhesive Tape Itching 04/29/2020 Penicillins Rash 02/12/2008 Penicillin G 07/20/2018 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 documented as of this encounter (statuses as of 01/27/2023) Medications Medication Sig Dispensed Refills Start Date End Date Status nystatin (NYSTOP) 338922 UNIT/GM powder Apply topically to affected area 3 times a day. 60 g 1 10/16/2019 Active Dexcom G6 Table Cover Folder Device Use as directed. To test blood sugars 4 times a day Dx E11.9 1 Each 0 09/14/2020 Active Dexcom G6 Transmitter Use as directed. To test blood sugars 4 times a day. Change every 90 days. Dx E11.9 1 Each 3 09/14/2020 Active OneTouch Verio In Vitro Strip (Glucose Blood) TESTING once daily 100 Strip 3 10/29/2020 Active AnalizaTouch Delica Plus [id number] TESTING once daily 100 Each 3 10/29/2020 [...] goal of less than 7.0% ([facility]) USE TO INJECT INSULIN FOUR TIMES [...] goal of less than 8.0% ([facility]) 35 Units at breakfast, 39 Units [...] goal of less than 8.0% ([facility]) Inject 60 units subcutaneously at bedtime 45 mL 3 01/24/2023 Active Nadolol 40 MG Oral Tablet (Corgard)Indication s:HTN, goal below 140/90 TAKE 1 TABLET BY MOUTH DAILY 90 Tablet 3 01/26/2023 Active Oxybutynin Chloride 5 MG Oral Tablet (Ditropan)Indicatio ns: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 if a exterminator helper termite plan is made -continue lexapro Generalized weakness [...] pain 01/24/2012 01/17/2017 Genetic Sleep Disorder Research Other*[id number] 05/13/2011 04/07/2016 Obstructive sleep apnea 01/18/2011 12/27/19 [...] (Prevnar) 05/02/2019 Pneumococcal Conjugate Vacci ne, 20-valent ([id number]) 10/21/2022 Pneumococcal Polysaccharide PPV23 (Pneumovax) 06/01/2010 Seasonal [...] [facility] Telephonic Nurse Follow-Up Call [facility] Subprogram: Focused Care Management (3-9 months) [...] for f/u on patient s/p CXR per [facility] PAC states demonstrated mild haziness in the right lung possibly last infiltrate . JEYSON ordered CT of chest to be done stat today. Other burlesque dancer sent tiger text to [facility] block greaser Angela Duque , on [facility] Instant API text block greaser roletoday to schedule same. JEYSON yesterday also [...] up call scheduled for tomorrow with DEVAN Air Pollution Inspector Future Visits Scheduled: Future Appointments-next 60 days Date/Time Provider Specialty Dept Phone 01/27/2023 5:00 PM [facility] Air Pollution Inspector [facility] [phone] 01/28/2023 2:30 PM Nurse [facility] [phone] 02/01/2023 1:30 PM Chair 5 Hem Onc Scenery Park Hematology Oncology [phone] 02/01/2023 1:40 PM [facility] Sp Pharmacist1 Pharmacy [phone] 02/09/2023 8:30 AM July Poe RN [facility] [phone] 02/14/2023 12:30 PM (Arrive by 12:15 PM) ZAK Bolton Gastroenterology [phone] 02/16/2023 12:30 PM Garrett Bush [facility] Health Hard Tile Setter; ZAK Bowden [facility] [phone] 03/01/2023 1:00 PM [place] [facility] Function [phone] 06/27/2023 1:45 PM (Arrive by 1:30 PM) Tono Sanchez MD Hematology Oncology [phone] 07/31/2023 1:20 PM (Arrive by 1:05 PM) Vanita Dunn MD Family Medicine [phone] 10/04/2023 4:00 PM (Arrive by 3:45 PM) Renetta Martinez MD Gynecology Obstetrics [phone] Jennifer Alexander RN documented in this encounter Plan of Treatment Upcoming Encounters Date Type Specialty Care Team Description 01/28/2023 Scheduled Telephone [facility], Nurse [place] [address] [place] [address] 02/01/2023 Hem/Onc Treatment Hematology Oncology Park, Chair 5 Hem Onc Scenery [address] [place] [address] 02/01/2023 Office Visit Pharmacy Pharmacist1, [facility] Sp [address] [place] [address] 02/09/2023 Home Visit [facility] July Poe RN [address] [facility] [place] [address] 02/14/2023 Office Visit [facility]ology [facility] [place] [address] 02/16/2023 Telemedicine [facility] Emmy Aparicio CRNP [address] [facility] [place] [address] Garrett Bush, Community [facility] Hard Tile Setter [address] [place] [address] 03/01/2023 PulmDiagnostic Pulmonary Function West, Pft [facility] [place] [address] 06/27/2023 Office Visit Hematology Oncology Tono Sanchez MD [address] [place] [address] 07/31/2023 Office Visit Family Medicine Vanita Dunn MD [address] [place] [address] 10/04/2023 Office Visit Gynecology Obstetrics [facility]etta [facility] [place] [address] Scheduled Procedures Name Priority Associated Diagnoses Date/Ti [...] 02/03/2017, Additional history exists HgA1C 06/08/2023 12/06/2022, 0904/2022, 01/24/2022, Additional history exists TSH FOR THYROID [...] this encounter Medical Devices Implanted Type Area Song Writer Device Identifier Shelf Expiration Date Model / Serial / Lot Microtech Sure Clip Implanted:Qty: 2 on 06/03/2020 by Janis Hatch, DO at OR [facility] Clip N/A: Colon 04/21/2022 [facility]-F-26-2 35-C-R / / [id number] documented as of this encounter Advance Directives Documents on File Type Date Recorded Patient Education Intern Expl anation Advance Directives and Living Will 04/29/2021 ADVANCE DIRECTIVE / LIVING WILL LIVING WILL AND HEALTH CARE POA Power of Naval Aircrewman Helicopter 04/29/2021 POWER OF A TTORNEY HEALTH CARE [...] the patient have Health Care Power of Naval Aircrewman Helicopter? No Code Status History Code Status Date Activated Date Inactivated Comments Full Code 12/27/2021 2:50 PM 12/27/2021 8:02 PM This order reflects the patients wishes and were consensually agreed upon. Question Answer Comments Discussion of Advance Directives occurred with: Not Discussed Does the patient have a Living Will? No Does the patient have Health Care Power of Naval Aircrewman Helicopter? No Full Code 03/31/2021 8:57 PM 04/03/2021 [...] Syed Bustos Spouse Emergency Contact Care Teams Floor Specialist Relationship Specialty Start Date End Date Vanita Dunn MD [address] [place] [address] PCP - General Family Medicine 03/16/21 documented as of this encounter
--- OUTSIDE RECORDS SUMMARY | 2023-05-10 16:49 | External Medical Summary | Summary of Care ---
Author Name Unknown Organization [facility] Address [address] [facility] [address] Phone [phone] Care Team Providers Care Phlebotomist Associate Name Role Phone Vanita Dunn MD Primary Care Provid er Reason for Referral * Precert (Within 24 hrs (call dept; emergent)) - Pending Review Specialty Diagnoses / Procedures Referred By Evangelina jeter Referred To Contact Radiology Diagnoses New abnormality on chest x-ray Procedures CT CHEST W WO Josh Hernandez PA-C [address] [facility] [place] [address] Referral ID Status Reason Start Date Expiration Date V isits Requested Visits Authorized [id number] Pending Review 01/26/2023 999 999 Reason for Visit * Reason Onset Date Comments [facility]: Maintenance 01/26/2023 Encounter Details Date Type Department Care Team Description 01/26/2023 Telephone [facility], [facility] 132 [facility] [place] [address] [facility], Nurse [facility] 132 [facility] [place] [address] [facility]: Maintenance Allergies Active Allergy Reactions Severity Noted Date Comments Adhesive Tape Itching 04/29/2020 Penicillins Rash 02/12/2008 Penicillin G 07/20/2018 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 documented as of this encounter (statuses as of 01/27/2023) Medications Medication Sig Dispensed Refills Start Date End Date Status nystatin (NYSTOP) 951884 UNIT/GM powder Apply topically to affected area 3 times a day. 60 g 1 10/16/19 20 Active Dexcom G6 Melter Clerk Device Use as directed. To test blood [...] 3 10/29/19 21 Active OneTouch Delica Plus [id number] TESTING once daily 100 Each 3 10/29/19 [...] fecal incontinence Use as directed 60 Each 10/06/19 Active Lidocaine-Prilocai ne 2.5-2.5 % External Cream (Emla)Indications: Encounter for antineoplastic chemotherapy Apply topically to affected area as needed for Other (when accessing port). APPLY TO SKIN OVER MEDIPORT & COVER 1HR PRIOR TO ACCESSING. 30 g 0 02/11/20 22 Active Trulicity 4.5 MG/0.5ML Subcutaneous Solution Pen-injector (Dulaglutide)Indic ations:Type 2 diabetes mellitus with hemoglobin A1c goal of less than 7.0% ([facility]) inject 4.5mg (1 pen) under the skin once weekly 6 mL 02/23/20 Active Spironolactone 25 MG Oral Tablet (Aldactone) Take by mouth 2 Tablets in the morning. 180 Tablet 05/06/20 Active traZODone HCl 50 MG Oral Tablet (Desyrel)Indicatio ns:Sleep disturbances TAKE 1 TABLET BY MOUTH AT BEDTIME 90 Tablet 05/12/20 Active Levothyroxine Sodium 150 MCG Oral Tablet (Levoxyl)Indicatio ns:Acquired hypothyroidism Take by mouth 1 Tablet in the morning. (at least 30 min prior to breakfast or other meds). 30 Tablet 05/20/20 Active BD Pen Needle Mini U/F 31G X 5 MM (Insulin Pen Needle)Indications :Type 2 diabetes mellitus with hemoglobin A1c goal of less than 7.0% ([facility]) USE TO INJECT INSULIN FOUR TIMES DAILY. 400 Each 05/23/20 Active Silver sulfADIAZINE 1 % External Cream (Silvadene)Indicat ions:Pressure injury of skin of sacral region, unspecified injury stage Apply topically to affected area daily . Apply to wound 85 g 07/06/20 Active Atorvastatin Calcium 80 MG Oral Tablet (Lipitor) TAKE 1 TABLET BY MOUTH AT BEDTIME 90 Tablet 1 07/29/20 Active metFORMIN HCl ER 500 MG Oral Tablet Extended Release 24 Hour (Glucophage XR) TAKE 1 TABLET EVERY DAY WITH A MEAL 90 Tablet 1 07/29/20 Active Isosorbide Mononitrate ER 30 MG Oral [...] DAILY 90 Tablet 3 01/27/20 23 Active Escitalopram Oxalate 20 MG Oral Tablet (Lexapro)Indicatio ns:Recurrent major depressive disorder, in partial remission (HCC) TAKE 1 TABLET BY MOUTH DAILY 90 Tablet 3 01/27/20 23 Active Gabapentin 300 MG Oral Capsule (Neurontin)Indicat ions:DM type 2 with diabetic peripheral neuropathy (HCC),Diabetic foot (HCC) TAKE 1 CAPSULE BY MOUTH EVERY MORNING, 1 CAPSULE MIDDAY, AND 2 CAPSULES IN THE EVENING, MAY TAKE AN EXTRA DOSE IN THE MORNING AND MIDDAY IF NEEDED FOR PAIN *MAX DAILY AMOUNT: 6 CAPSULES* 360 Capsule 0 11/11/19 23 023 Discontinued Oxybutynin Chloride 5 MG Oral Tablet (Ditropan)Indicati ons: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 if a manager long term care plan is made -continue lexapro Generalized [...] pain 01/24/2012 01/17/2017 Genetic Sleep Disorder Research Other*[id number] 05/13/2011 04/07/2016 Obstructive sleep apnea 01/18/2011 12/27/19 [...] (Prevnar) 05/02/2019 Pneumococcal Conjugate Vacci ne, 20-valent ([id number]) 10/21/2022 Pneumococcal Polysaccharide PPV23 (Pneumovax) 06/01/2010 Seasonal [...] Telephone Encounter - Rachel Tomlinson RN - 01/27/2023 8:51 AM EDT Message sent to underground mining section foreman/ Angela Duque to set up CT Scan of Chest today for patient, and to schedule appointment with Pulmonology. Rachel Tomlinson RN Butter Production Supervisor [facility] * Telephone Encounter - Jennifer Alexander RN - 01/26/2023 5:09 PM EDT 24/48 hr f/u calls scheduled Routed to scheduling to schedule telemed appt Monday as per provider request. Also sent teams msg to scheduling regarding same. Shannan Alexander RN [facility] Butter Production Supervisor [facility] * Addendum Note - Josh Main PA-C - 01/26/2023 4:27 PM EDTAddended by: JOSH MAIN on: 01/26/2023 04:27 PM Modules accepted: Orders * Telephone Encounter - Josh Main PA-C - 01/26/2023 3:52 PM EDT [facility] Remote Medical Command Phone Encounter Thank you Rachel for your assistance in the care of this patient today. 67 year old year old female patient who presents today status post chest x-ray demonstrated mild haziness in the right lung possibly last infiltrate. Review the patient's chart I note that she was COVID 19 positive end of last year but at that point there was no imaging demonstrating these findings. Also recognize that the patient has a chronic immunocompromise with her absolute lymphs being significantly low chronic basis. When things come this situation would be something like aspergillosis. However the patient has remained afebrile it really demonstrates no signs or symptoms. The patient does follow with Cardiology but I noted that the cardiology visit was canceled while the PFTs are still scheduled. Recommendations: Given the above findings recommending that the patient a follow-up CT of the chest I will send a note to the manager corporate responsibility so that they are aware on what I ordering and what I have noticed, but also let them know that the patient is no longer on their schedule the appointment was canceled. Follow-up phone call 24 and 48 hours. Can we have this patient is scheduled on Monday for a minimum a telemedicine visit with a provider This note was prepared with the help of fluency and if there is any mis-spelled words , sentences or something which doesn't represent the content of the subject that could be technical error and please refer to the author for clarification. * Telephone Encounter - Rachel Tomlinson RN - 01/26/2023 2:59 PM EDT Phone call from Kaylee in Radiology stating patient has an abnormal finding on chest xray that wasdone today and she tried to contact Aleyda Campos PA-C but could not get a hold of her . Chest x-ray impression: Mild Haziness in the right lower lung, possibly underlying ground glass infiltrate. Informed Kaylee I will send her message to Aleyda and [facility] Provider. Rachel Tomlinson RN Butter Production Supervisor [facility] documented in this encounter Plan of Treatment Upcoming Encounters Date Type Specialty Care Team Description 01/27/2023 Scheduled Telephone [facility] Trainer, [facility] [address] [place] [address] 01/28/2023 Scheduled Telephone [facility], Nurse [place] [address] [place] [address] 01/30/2023 [facility]medicine [facility] Kelsey [facility] [address] [facility] [place] [address] Mary Barnett, Community [facility] Armhole Baster Jumpbasting [address], [place] [address] 02/01/2023 Hem/Onc Treatment Hematology Oncology Park, Chair 5 Hem Onc Scenery [address] [place] [address] 02/01/2023 Office Visit Pharmacy Pharmacist1, [facility] [address] [place] [address] 02/09/2023 Home Visit [facility] July Poe RN [address] [place] [address] 03/01/2023 PulmDiagnostic Pulmonary Function West, Pft [address] [place] [address] 03/08/2023 Office Visit Gastroenterology Lyssa Stout CRNP [address] [place] [address] 06/27/2023 Office Visit Hematology Oncology Tono Sanchez MD [address] [facility] [place] [address] 07/31/2023 Office Visit Family Medicine Vanita Dunn MD [address] [place] [address] 10/04/2023 Office Visit Gynecology Obstetrics Renetta Martinez MD [address] [place] [address] Scheduled Orders Name Type Priority Associated Diagnoses Orde r Schedule CT CHEST W WO CONTRAST Medical Imaging STAT New abnormality on chest x-ray Ordered: 01/26/2023 CREATININE Lab Routine New abnormality on chest x-ray Expected: 01/26/2023, Expires: 01/27/2024 Scheduled Procedures Name Priority Associated Diagnoses Date/Ti [...] this encounter Medical Devices Implanted Type Area Precision Jig Grinder Device Identifier Shelf Expiration Date Model / Serial / Lot Microtech Sure Clip Implanted:Qty: 2 on 06/03/2020 by Janis Hatch DO at OR [facility] Clip N/A: Colon 04/21/2022 [facility]-F-26-2 35-C-R / / [id number] documented as of this encounter Visit Diagnoses Diagnosis New abnormality on chest x-ray- Primary Other nonspecific abnormal finding of lung field documented in this encounter Advance Directives Documents on File Type Date Recorded Patient Customer Account Representative Expl anation Advance Directives and Living Will 04/29/2021 ADVANCE DIRECTIVE / LIVING WILL LIVING WILL AND HEALTH CARE POA Power of Search Marketing Coordinator 04/29/2021 POWER OF A TTORNEY HEALTH [...] the patient have Health Care Power of Search Marketing Coordinator? No Code Status History Code Status Date Activated Date Inactivated Comments Full Code 12/27/2021 2:50 PM 12/27/2021 8:02 PM This order reflects the patients wishes and were consensually agreed upon. Question Answer Comments Discussion of Advance Directives occurred with: Not Discussed Does the patient have a Living Will? No Does the patient have Health Care Power of Search Marketing Coordinator? No Full Code 03/31/2021 8:57 PM [...] Syed Bustos Spouse Emergency Contact Care Teams Phlebotomist Associate Relationship Specialty Start Date End Date Vanita Dunn MD [address] [place] [address] PCP - General Family Medicine 03/16/21 documented as of this encounter
--- OUTSIDE RECORDS SUMMARY | 2023-05-10 16:49 | External Medical Summary | Summary of Care ---
Author Name Unknown Organization [facility] Address [address] [facility] [place] [address] Phone [phone] Care Team Providers Care Nursing Assistants Teacher Name Role Phone Vanita Dunn MD Primary Care Provid er Reason for Visit * Reason Onset Date Comments [facility]: Maintenance 01/26/2023 Encounter Details Date Type Department Care Team Description 01/26/2023 Telephone [facility], [facility] 132 [place] [address] [facility], Nurse [facility] 132 [place] [address] [facility]: Maintenance Allergies Active Allergy Reactions Severity Noted Date Comments Adhesive Tape Itching 04/29/2020 Penicillins Rash 02/12/2008 Penicillin G 07/20/2018 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 documented as of this encounter (statuses as of 01/26/2023) Medications Medication Sig Dispensed Refills Start Date End Date Status nystatin (NYSTOP) 034763 UNIT/GM powder Apply topically to affected area 3 times a day. 60 g 1 10/16/2019 Active Dexcom G6 Lodging Facilities Manager Device Use as directed. To test blood sugars 4 times a day Dx E11.9 1 Each 0 09/14/2020 Active Dexcom G6 Transmitter Use as directed. To test blood sugars 4 times a day. Change every 90 days. Dx E11.9 1 Each 3 09/14/2020 Active OneTouch Verio In Vitro Strip (Glucose Blood) TESTING once daily 100 Strip 3 10/29/2020 Active OneTouch Delica Plus [id number] TESTING once daily 100 Each 3 10/29/2020 [...] hemoglobin A1c goal of less than 8.0% ([facility]) 35 Units at breakfast, 39 [...] before bedtime. 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,Other cerebral palsy ([facility]) TAKE 1 TABLET BY MOUTH TWICE DAILY 180 Tablet 0 11/10/2022 Active Fluticasone-Salmete rol 250-50 MCG/ACT Inhalation Aerosol [...] hemoglobin A1c goal of less than 8.0% ([facility]) Inject 60 units subcutaneously at bedtime 45 mL 3 01/24/2023 Active Nadolol 40 MG Oral Tablet (Corgard)Indication s:HTN, goal below 140/90 TAKE 1 TABLET BY MOUTH DAILY 90 Tablet 3 01/26/2023 Active Escitalopram Oxalate 20 MG Oral Tablet [...] as of this encounter (statuses as of 01/26/2023) Active Problems Problem Noted Date Thrombocytopenia 01/17/2023 [...] as of this encounter (statuses as of 01/26/2023) Resolved Problems Problem Noted Date Resolved Date [...] current situation. 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 if a dedicated intermodal truck driver plan is made -continue [...] pain 01/24/2012 01/17/2017 Genetic Sleep Disorder Research Other*[id number] 05/13/2011 04/07/2016 Obstructive sleep apnea 01/18/2011 12/27/19 [...] as of this encounter (statuses as of 01/26/2023) Immunizations Name Administration Dates Next Due COVID-19 mRNA, LNP-s, No Pre serve, 2-Dose Series (Moderna) 01/05/2022,07/26/2021,12/21/2020,11/09 HEP A - Hepatitis A (Adult > 18 yrs) 09/24/2018, 03/26/2018 Hepatitis B, 20+ yrs 09/24/2018,04/23/2018,03/26 Pneumococcal Conjugate Vacc, 13 Valent (Prevnar) 05/02/2019 Pneumococcal Conjugate Vacci ne, 20-valent ([id number]) 10/21/2022 Pneumococcal Polysaccharide PPV23 (Pneumovax) 06/01/2010 Seasonal [...] will send her message to Aleyda and [facility] Provider. Rachel Tomlinson linoleum layer apprenticeElectrical Wiring Lineman [facility] documented in this encounter Plan of Treatment Upcoming Encounters Date Type Specialty Care Team Description 02/01/2023 Hem/Onc Treatment Hematology Oncology [place], Chair 5 Hem Onc [facility] 200 [facility] [place] [address] 02/01/2023 Office Visit Pharmacy Pharmacist1, [facility] 200 [facility] [place] [address] 02/09/2023 Home Visit [facility] July Poe RN 132 [place] [address] 03/01/2023 PulmDiagnostic Pulmonary Function West, Pft [address] [place] [address] 03/08/2023 Office Visit Gastroenterology Lyssa Stout CRNP [address] [place] [address] 06/27/2023 Office Visit Hematology Oncology Tono Sanchez MD 200 [place] [address] 07/31/2023 Office Visit Family Medicine Vanita Dunn MD [address] [place] [address] 10/04/2023 Office Visit Gynecology Obstetrics Renetta Martinez MD [address] [place] [address] Scheduled Procedures Name Priority Associated Diagnoses Date/Ti [...] 02/03/2017, Additional history exists HgA1C 06/08/2023 12/06/2022, 04/2022, 01/24/2022, Additional history exists TSH FOR [...] this encounter Medical Devices Implanted Type Area Customer Consulting Manager Device Identifier Shelf Expiration Date Model / Serial / Lot Microtech Sure Clip Implanted:Qty: 2 on 06/03/2020 by Janis Hatch DO at OR [facility] Clip N/A: Colon 04/21/2022 [facility]-F-26-2 35-C-R / / [id number] documented as of this encounter Advance Directives Documents on File Type Date Recorded Patient Vice President Quality Improvement Expl anation Advance Directives and Living Will 04/29/2021 ADVANCE DIRECTIVE / LIVING WILL LIVING WILL AND HEALTH CARE POA Power of Store Deli Manager 04/29/2021 POWER OF A [facility] [...] the patient have Health Care Power of Store Deli Manager? No Code Status History Code Status Date Activated Date Inactivated Comments Full Code 12/27/2021 2:50 PM 12/27/2021 8:02 PM This order reflects the patients wishes and were consensually agreed upon. Question Answer Comments Discussion of Advance Directives occurred with: Not Discussed Does the patient have a Living Will? No Does the patient have Health Care Power of Store Deli Manager? No Full Code 03/31/2021 8:57 PM [...] Syed Bustos Spouse Emergency Contact Care Teams Nursing Assistants Teacher Relationship Specialty Start Date End Date Vanita Dunn MD [address] [place] [address] PCP - General Family Medicine 03/16/21 documented as of this encounter
--- OUTSIDE RECORDS SUMMARY | 2023-05-10 16:49 | External Medical Summary | Summary of Care ---
Author Name Unknown Organization [facility] Address [address] [place] [address] Phone [phone] Care Team Providers Care Buyers' Agent Name Role Phone Vanita Dunn MD Primary Care Provid er Reason for Visit * Reason Onset Date Comments Appointment 01/26/2023 Encounter Details Date Type Department Care Team Description 01/26/2023 Telephone [facility], [place] [address] [facility] [place] [id number] Services, Scheduling [address] [place] [address] Appointment (//) Allergies Active Allergy Reactions Severity Noted Date Comments Adhesive Tape Itching 04/29/2020 Penicillins Rash 02/12/2008 Penicillin G 07/20/2018 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 documented as of this encounter (statuses as of 01/26/2023) Medications Medication Sig Dispensed Refills Start Date End Date Status nystatin (NYSTOP) 718765 UNIT/GM powder Apply topically to affected area 3 times a day. 60 g 1 10/16/2019 Active Dexcom G6 Automotive Sales Executive Device Use as directed. To test blood sugars 4 times a day Dx E11.9 1 Each 0 09/14/2020 Active Dexcom G6 Transmitter Use as directed. To test blood sugars 4 times a day. Change every 90 days. Dx E11.9 1 Each 3 09/14/2020 Active OneTouch Verio In Vitro Strip (Glucose Blood) TESTING once daily 100 Strip 3 10/29/2020 Active OneTouch Delica Plus [id number] TESTING once daily 100 Each 3 10/29/2020 [...] due to immobility,Other cerebral palsy ([facility]) TAKE 1 TABLET BY MOUTH TWICE [...] goal of less than 8.0% ([facility]) Inject 60 units subcutaneously at bedtime [...] Achilles tendinitis, right leg 04/08/2019 0 09/13/2021 [facility] resident 04/08/2019 05/02/2019 Ambulatory dysfunction 04/04/2019 2 [...] 07/02/2014 Hyperglycemia 05/02/2012 09/13/2021 Diverticulosis of colon 05/02/2012/01/28 18 Constipation 05/02/2012 11/16/2022 Overview: Noted in [...] pain 01/24/2012 01/17/2017 Genetic Sleep Disorder Research Other*[id number] 05/13/2011 04/07/2016 Obstructive sleep apnea 01/18/2011 12/27/19 [...] (Prevnar) 05/02/2019 Pneumococcal Conjugate Vacci ne, 20-valent ([id number]) 10/21/2022 Pneumococcal Polysaccharide PPV23 (Pneumovax) 06/01/2010 Seasonal [...] * Telephone Encounter - THAD Graves - 01/26/2023 5:22 PM EDT Request form Abhishek Mani to schedule a telemed Mon 01/30-I called and spoke to Shaina and she was agreeable to 4pm Mon documented in this encounter Plan of Treatment Upcoming Encounters Date Type Specialty Care Team Description 01/27/2023 Scheduled Telephone [facility] Aircraft Maintenance Instructor, Brady Chavez [facility] [address] [place] [address] 01/28/2023 Scheduled Telephone [facility], Nurse [facility] [place] [address] [place] [address] 01/30/2023 [facility]icine [facility] [address] [facility] [address] [facility] Track Repair Worker [address] [place] [address] 02/01/2023 Hem/Onc Treatment Hematology Oncology [place], Chair 5 Hem Onc Scenery [address] [place] [address] 02/01/2023 Office Visit Pharmacy Pharmacist1, [facility] Sp [address] [place] [address] 02/09/2023 Home Visit [facility] July Poe RN [address] [facility] [address] 03/01/2023 PulmDiagnostic Pulmonary Function West, Pft [address] [place] [address] 03/08/2023 Office Visit Gastroenterology Lyssa Stout CRNP [address] [address] 06/27/2023 Office Visit Hematology Oncology Tono Sanchez MD [address] [place] [address] 07/31/2023 Office Visit Family Medicine Vanita Dunn MD [address] [place] [address] 10/04/2023 Office Visit Gynecology Obstetrics Renetta Martinez MD [address] [facility] [address] Scheduled Procedures Name Priority Associated Diagnoses Date/Ti [...] this encounter Medical Devices Implanted Type Area Radiation Oncology Therapist Device Identifier Shelf Expiration Date Model / Serial / Lot Microtech Sure Clip Implanted:Qty: 2 on 06/03/2020 by Janis Hatch DO at OR [facility] Clip N/A: Colon 04/21/2022 [facility]-F-26-2 35-C-R / / [id number] documented as of this encounter Advance Directives Documents on File Type Date Recorded Patient Addiction Social Worker Expl anation Advance Directives and Living Will 04/29/2021 ADVANCE DIRECTIVE / LIVING WILL LIVING WILL AND HEALTH CARE POA Power of Mask Inspector 04/29/2021 POWER OF A [facility] [...] the patient have Health Care Power of Mask Inspector? No Code Status History Code Status Date Activated Date Inactivated Comments Full Code 12/27/2021 2:50 PM 12/27/2021 8:02 PM This order reflects the patients wishes and were consensually agreed upon. Question Answer Comments Discussion of Advance Directives occurred with: Not Discussed Does the patient have a Living Will? No Does the patient have Health Care Power of Mask Inspector? No Full Code 03/31/2021 8:57 PM 04/03/2021 [...] Syed Bustos Spouse Emergency Contact Care Teams Buyers' Agent Relationship Specialty Start Date End Date Vanita Dunn MD [address] [address] PCP - General Family Medicine 03/16/21 documented as of this encounter
--- OUTSIDE RECORDS SUMMARY | 2023-05-10 16:49 | External Medical Summary | Summary of Care ---
Author Name Unknown Organization [facility] Address [address] [facility] [address] Phone [phone] Care Team Providers Care Kick Press Setter Name Role Phone Vanita Dunn MD Primary Care Provid er Reason for Referral * Precert (Within 24 hrs (call dept; emergent)) - Pending Review Specialty Diagnoses / Procedures Referred By Evangelina jeter Referred To Contact Radiology Diagnoses New abnormality on chest x-ray Procedures CT CHEST W WO Josh Hernandez PA-C [address] [place] [address] Referral ID Status Reason Start Date Expiration Date V isits Requested Visits Authorized [id number] Pending Review 01/26/2023 999 999 Reason for Visit * Reason Onset Date Comments [facility]: Maintenance 01/26/2023 Encounter Details Date Type Department Care Team Description 01/26/2023 Telephone [facility], [facility] 132 [facility] [place] [address] [facility], Nurse [facility] 132 [facility] [place] [address] [facility]: Maintenance Allergies Active Allergy Reactions Severity Noted Date Comments Adhesive Tape Itching 04/29/2020 Penicillins Rash 02/12/2008 Penicillin G 07/20/2018 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 documented as of this encounter (statuses as of 01/26/2023) Medications Medication Sig Dispensed Refills Start Date End Date Status nystatin (NYSTOP) 032332 UNIT/GM powder Apply topically to affected area 3 times a day. 60 g 1 10/16/2019 Active Dexcom G6 Electro Mechanical Technician Device Use as directed. To test blood sugars 4 times a day Dx E11.9 1 Each 0 09/14/2020 Active Dexcom G6 Transmitter Use as directed. To test blood sugars 4 times a day. Change every 90 days. Dx E11.9 1 Each 3 09/14/2020 Active OneTouch Verio In Vitro Strip (Glucose Blood) TESTING once daily 100 Strip 3 10/29/2020 Active OneTouch Delica Plus [id number] TESTING once daily 100 Each 3 10/29/2020 [...] [facility] inject 4.5mg (1 pen) under the skin [...] [facility]) 35 Units at breakfast, 39 Units before [...] ([facility]) Inject 60 units subcutaneously at bedtime 45 mL 3 01/24/2023 Active Nadolol 40 MG Oral Tablet (Corgard)Indication s:HTN, goal below 140/90 TAKE 1 TABLET BY MOUTH DAILY 90 Tablet 3 01/26/2023 Active Escitalopram Oxalate 20 MG Oral Tablet (Lexapro)Indication s:Recurrent major depressive disorder, in partial remission ([facility]) TAKE 1 TABLET BY MOUTH DAILY 90 [...] Cardiomegaly 01/30/2021 09/13/2021 SOB (shortness of breath) 01/30/20212 Uncontrolled type 2 diabetes mellitus with hyper [...] pain 01/24/2012 01/17/2017 Genetic Sleep Disorder Research Other*[id number] 05/13/2011 04/07/2016 Obstructive sleep apnea 01/18/2011 12/27/19 [...] (Prevnar) 05/02/2019 Pneumococcal Conjugate Vacci ne, 20-valent ([id number]) 10/21/2022 Pneumococcal Polysaccharide PPV23 (Pneumovax) 06/01/2010 Seasonal [...] as of this encounter Miscellaneous Notes * Addendum Note - Josh Main PA-C - 01/26/2023 4:27 PM EDTAddended by: JOSH MAIN on: 01/26/2023 04:27 PM Modules accepted: Orders * Telephone Encounter - Josh Main PA-C - 01/26/2023 3:52 PM EDT [facility] Phone Encounter [...] I will send a note to the banana carrier so that they are aware on what [...] Kaylee I will send her message to [place] Provider. Rachel Tomlinson RN Chartered Wealth Manager [facility] documented in this encounter Plan of Treatment Upcoming Encounters Date Type Specialty Care Team Description 02/01/2023 Hem/Onc Treatment Hematology Oncology [place], Chair 5 Hem Onc Scenery [address] [place] [address] 02/01/2023 Office Visit Pharmacy Pharmacist1, [facility] Sp [address] [place] [address] 02/09/2023 [facility] [place] [address] 03/01/2023 PulmDiagnostic Pulmonary Function West, Pft [address] [place] [address] 03/08/2023 Office Visit Gastroenterology Lyssa Stout CRNP [address] [place] [address] 06/27/2023 Office Visit Hematology Oncology Tono Sanchez MD 200 [facility] [place] [address] 07/31/2023 Office Visit Family Medicine Vanita Dunn MD [address] [place] [address] 10/04/2023 Office Visit Gynecology Obstetrics Renetta Martinez [facility] [place] [address] Scheduled Orders Name Type Priority Associated Diagnoses [...] this encounter Medical Devices Implanted Type Area Discount Clerk Device Identifier Shelf Expiration Date Model / Serial / Lot Microtech Sure Clip Implanted:Qty: 2 on 06/03/2020 by Janis Hatch DO at OR [facility] Clip N/A: Colon 04/21/2022 [facility]-F-26-2 35-C-R / / [id number] documented as of this encounter Visit Diagnoses Diagnosis New abnormality on chest x-ray- Primary Other nonspecific abnormal finding of lung field documented in this encounter Advance Directives Documents on File Type Date Recorded Patient Plastics Seasoner Operator Expl anation Advance Directives and Living Will 04/29/2021 ADVANCE DIRECTIVE / LIVING WILL LIVING WILL AND HEALTH CARE POA Power of Tax Manager Public 04/29/2021 POWER OF A [facility] [...] the patient have Health Care Power of Tax Manager Public? No Code Status History Code Status Date Activated Date Inactivated Comments Full Code 12/27/2021 2:50 PM 12/27/2021 8:02 PM This order reflects the patients wishes and were consensually agreed upon. Question Answer Comments Discussion of Advance Directives occurred with: Not Discussed Does the patient have a Living Will? No Does the patient have Health Care Power of Tax Manager Public? No Full Code 03/31/2021 8:57 PM 04/03/2021 [...] Syed Bustos Spouse Emergency Contact Care Teams Kick Press Setter Relationship Specialty Start Date End Date Vanita Dunn MD [address] [place] [id number] PCP - General Family Medicine 03/16/21 documented as of this encounter
--- OUTSIDE RECORDS SUMMARY | 2023-05-10 16:49 | External Medical Summary | Summary of Care ---
Author Name Unknown Organization [facility] Address [address] [place] [address] Phone [phone] Care Team Providers Care Parts Counter Sales Person Name Role Phone Vanita Dunn MD Primary Care Provid er Reason for Visit * Reason Onset Date Comments Appointment 01/27/2023 Encounter Details Date Type Department Care Team Description 01/27/2023 Telephone [facility], [facility] [address] [facility] [place] [address] Services, Scheduling [address] [place] [address] Appointment (//) Allergies Active Allergy Reactions Severity Noted Date Comments Adhesive Tape Itching 04/29/2020 Penicillins Rash 02/12/2008 Penicillin G 07/20/2018 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 documented as of this encounter (statuses as of 01/27/2023) Medications Medication Sig Dispensed Refills Start Date End Date Status nystatin (NYSTOP) 289898 UNIT/GM powder Apply topically to affected area 3 times a day. 60 g 1 10/16/2019 Active Dexcom G6 Reed Fixer Device Use as directed. To test blood sugars 4 times a day Dx E11.9 1 Each 0 09/14/2020 Active Dexcom G6 Transmitter Use as directed. To test blood sugars 4 times a day. Change every 90 days. Dx E11.9 1 Each 3 09/14/2020 Active OneTouch Verio In Vitro Strip (Glucose Blood) TESTING once daily 100 Strip 3 10/29/2020 Active OneTouch Delica Plus [id number] TESTING once daily 100 Each 3 10/29/2020 [...] than 8.0% ([facility]) Inject 60 units subcutaneously at bedtime [...] current situation. 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 if a [place] health care facility plan is made -continue lexapro Generalized weakness [...] pain 01/24/2012 01/17/2017 Genetic Sleep Disorder Research Other*[id number] 05/13/2011 04/07/2016 Obstructive sleep apnea 01/18/2011 12/27/19 [...] (Prevnar) 05/02/2019 Pneumococcal Conjugate Vacci ne, 20-valent ([id number]) 10/21/2022 Pneumococcal Polysaccharide PPV23 (Pneumovax) 06/01/2010 Seasonal [...] Telephone Encounter - THAD Melissa - 01/27/2023 9:27 AM EDT Per Request via TT Jacqueline Barnett she advise this pt needs to be reschedule... Called s/w pt she advised 02/16 at 12:30/12:30pm is a good date and time. documented in this encounter Plan of Treatment Upcoming Encounters Date Type Specialty Care Team Description 01/27/2023 Scheduled Telephone [facility] Vending Enterprises Supervisor, [facility] [address] [place] [address] 01/28/2023 Scheduled Telephone [facility], Nurse [facility] [address] [place] [address] 02/01/2023 Hem/Onc Treatment Hematology Oncology Park, Chair 5 Hem Onc Scenery 200 [facility] [place] [address] 02/01/2023 Office Visit Pharmacy Pharmacist1, [facility] Sp [address] [facility] [place] [address] 02/09/2023 Home Visit [facility] July Poe RN [address] [place] [address] 02/16/2023 Telemedicine [facility] Emmy Aparicio CRNP [address] [facility] [place] [address] [place], Community [facility] Degree Clerk [address] [place] [address] 03/01/2023 PulmDiagnostic Pulmonary Function West, Pft [address] [place] [address] 03/08/2023 Office Visit Gastroenterology Lyssa Stout CRNP [address] [place] [address] 06/27/2023 Office Visit Hematology Oncology Tono Sanchez MD [address] [place] [address] 07/31/2023 Office Visit Family Medicine Mona, Vanita Barbour MD [address] [place] [address] 10/04/2023 Office Visit Gynecology Obstetrics Renetta Martinez MD [address] [place] [address] Scheduled Procedures Name Priority Associated Diagnoses Date/Ti [...] this encounter Medical Devices Implanted Type Area Entry Level Sales Representative Device Identifier Shelf Expiration Date Model / Serial / Lot Microtech Sure Clip Implanted:Qty: 2 on 06/03/2020 by Janis Hatch DO at OR [facility] Clip N/A: Colon 04/21/2022 [facility]-F-26-2 35-C-R / / [id number] documented as of this encounter Advance Directives Documents on File Type Date Recorded Patient Clinical Cytogenetics Director Expl anation Advance Directives and Living Will 04/29/2021 ADVANCE DIRECTIVE / LIVING WILL LIVING WILL AND HEALTH CARE POA Power of Inspector Wire Products 04/29/2021 POWER [facility] A [facility] [...] the patient have Health Care Power of Inspector Wire Products? No Code Status History Code Status Date Activated Date Inactivated Comments Full Code 12/27/2021 2:50 PM 12/27/2021 8:02 PM This order reflects the patients wishes and were consensually agreed upon. Question Answer Comments Discussion of Advance Directives occurred with: Not Discussed Does the patient have a Living Will? No Does the patient have Health Care Power of Inspector Wire Products? No Full Code 03/31/2021 8:57 PM 04/03/2021 [...] on File Name Relationship Healthcare Agent [facility] Syed Bustos Spouse Emergency Contact Care Teams Parts Counter Sales Person Relationship Specialty Start Date End Date Vanita Dunn MD [address] [place] [address] PCP - General Family Medicine 03/16/21 documented as of this encounter
--- OUTSIDE RECORDS SUMMARY | 2023-05-10 16:49 | External Medical Summary | Summary of Care ---
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; Other cerebral palsy (HCC); DM type 2 with diabetic peripheral neuropathy (HCC); Diabetic foot (HCC); Recurrent major depressive disorder, in partial remission ([facility]) Allergies Active Allergy Reactions Severity Noted Date Comments Adhesive Tape Itching 04/29/2020 Penicillins Rash 02/12/2008 Penicillin G 07/20/2018 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 documented as of this encounter (statuses as of 01/27/2023) Medications Medication Sig Dispensed Refills Start Date End Date Status nystatin (NYSTOP) 123410 UNIT/GM powder Apply topically to affected area 3 times a day. 60 g 1 10/16/19 20 Active Dexcom G6 Warehouse Sorter Device Use as directed. To test blood sugars 4 times a day Dx E11.9 1 Each 0 01/04/20 21 Active Dexcom G6 Transmitter Use as directed. To test blood sugars 4 times a day. Change every 90 days. Dx E11.9 1 Each 3 09/14/19 21 Active OneTouch Verio In Vitro Strip (Glucose Blood) TESTING once daily 100 Strip 3 10/29/19 21 Active OneTouch Delica Plus [id number] TESTING once daily 100 Each 3 10/29/19 [...] skin once weekly 6 mL 5 02/23/20 Active Spironolactone 25 MG Oral Tablet (Aldactone) Take by mouth 2 Tablets in the morning. 180 Tablet 3 05/06/20 Active traZODone HCl 50 MG Oral Tablet (Desyrel)Indicatio ns:Sleep disturbances TAKE 1 TABLET BY MOUTH AT BEDTIME 90 Tablet 3 05/12/20 Active Levothyroxine Sodium 150 MCG Oral [...] FOUR TIMES DAILY. 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 if a mcfp plan is made -continue lexapro Generalized weakness [...] pain 01/24/2012 01/17/2017 Genetic Sleep Disorder Research Other*[id number] 05/13/2011 04/07/2016 Obstructive sleep apnea 01/18/2011 12/27/19 [...] (Prevnar) 05/02/2019 Pneumococcal Conjugate Vacci ne, 20-valent ([id number]) 10/21/2022 Pneumococcal Polysaccharide PPV23 (Pneumovax) 06/01/2010 Seasonal [...] encounter Miscellaneous Notes * Telephone Encounter - Kojo Dunn MD - 01/27/2023 7:05 AM EDT Signed Prescriptions: Disp Refills Nadolol 40 MG Oral Tablet (Corgard) 90 Tab*3 Sig: TAKE 1 TABLET BY MOUTH DAILY Authorizing Provider: KOJO DUNN Ordering User: DANILO TALAVERA Oxybutynin Chloride 5 MG Oral Tablet (Ditr*180 Ta*1 Sig: TAKE 1 TABLET BY MOUTH TWICE DAILY Authorizing Provider: KOJO DUNN Gabapentin 300 MG Oral Capsule (Neurontin) 360 Ca*1 Sig: TAKE 1 CAPSULE BY MOUTH IN THE MORNING, 1 CAPSULE MIDDAY, 2 CAPSULES IN THE EVENING. MAY TAKE AN EXTRA DOSE IN THE MORNING AND MIDDAY IF NEEDED FOR PAIN. MAX DAILY AMOUNT: 6 CAPSULES Authorizing Provider: KOJO DUNN Escitalopram Oxalate 20 MG Oral Tablet (Le*90 Tab*3 Sig: TAKE 1 TABLET BY MOUTH DAILY Authorizing Provider: Ashley DUNN User: DANILO TALAVERA * Telephone Encounter - Danilo Talavera, [facility] - 01/26/2023 1:04 PM EDTPending Prescriptions: Disp Refills Oxybutynin Chloride 5 MG Oral Tablet (Ditr*180 Ta*1 Sig: TAKE 1 TABLET BY MOUTH TWICE DAILY Gabapentin 300 MG Oral Capsule (Neurontin) 360 Ca*1 Sig: TAKE 1 CAPSULE BY MOUTH IN THE MORNING, 1 CAPSULE MIDDAY, 2 CAPSULES IN THE EVENING. MAY TAKE AN EXTRA DOSE IN THE MORNING AND MIDDAY IF NEEDED FOR PAIN. MAX DAILY [place] UNT: 6 CAPSULES Signed Prescriptions: Disp Refills Nadolol 40 MG Oral Tablet (Corgard) 90 Tab*3 Sig: TAKE 1 TABLET BY MOUTH DAILY Authorizing Provider: KOJO DUNN Ordering User: DANILO TALAVERA Escitalopram Oxalate 20 MG Oral Tablet (Le*90 Tab*3 Sig: TAKE 1 TABLET BY MOUTH DAILY Authorizing Provider: KOJO DUNN Ordering User: DANILO COTTO * Telephone Encounter - Danilo Ladi Talavera [facility] - 01/26/2023 1:04 PM EDT Refill pharmacists currently not authorized to approve refills for this class of medication per refill protocol. Please approve if appropriate. Pending Prescriptions: Disp Refills Oxybutynin Chloride 5 MG Oral Tablet (Ditr*180 Ta*1 Sig: TAKE 1 TABLET BY MOUTH TWICE DAILY Gabapentin 300 MG Oral Capsule (Neurontin) 360 Ca*1 Sig: TAKE 1 CAPSULE BY MOUTH IN THE MORNING, 1 CAPSULE MIDDAY, 2 CAPSULES IN THE EVENING. MAY TAKE AN EXTRA DOSE IN THE MORNING AND MIDDAY IF NEEDED FOR PAIN. MAX DAILY AMOUNT: 6 CAPSULES Signed Prescriptions: Disp Refills Nadolol 40 MG Oral Tablet (Corgard) 90 Tab*3 Sig: TAKE 1 TABLET BY MOUTH DAILY Authorizing Provider: KOJO DUNN Ordering User: DANILO TALAVERA Escitalopram Oxalate 20 MG Oral Tablet (Le*90 Tab*3 Sig: TAKE 1 TABLET BY MOUTH DAILY Authorizing Provider: KOJO DUNN Ordering User: DANILO TALAVERA 01/24/2023 (in office), 09/17/2021 (telemedicine) 07/31/2023 If no future appointments scheduled, and last appointment is greater than a year ago, please schedule patient for a follow-up appointment Last date the medication was ordered: 11/10/22 Pharmacy: [id number] [facility] Is this request for a controlled substance? no Urine Drug Screen:No results found. However, due to the size of the patient record, not all encounters were searched. Please check Results Review for a complete set of results. Patient Phone Numbers Labs: Lab Results Component Value Date/Time CREAT 0.6 12/06/2022 02:08 PM CREAT 0.72 12/18/2021 12:00 AM CREAT 0.6 09/24/2020 05:16 PM POTASSIUM 4.6 12/06/2022 02:08 PM POTASSIUM 4.3 12/18/2021 12:00 AM POTASSIUM 4.0 09/24/2020 05:16 PM TSH 0.70 07/06/2022 01:37 PM TSH 0.69 07/14/2020 04:24 PM LDLCALC 46 09/14/2021 03:22 PM LDLCALC 43 04/05/2019 06:40 AM LDLDIRECT 46 02/21/2020 11:43 AM ALT 32 12/06/2022 02:08 PM ALT 23 08/21/2020 04:35 PM HGBA1C 6.0 (H) 12/06/2022 02:08 PM HGBA1C 9.9 (H) 07/06/2020 05:24 AM documented in this encounter Plan of Treatment Upcoming Encounters Date Type Specialty Care Team Description 01/27/2023 Scheduled Telephone [facility] Design Drafter, [address] [place] [address] 01/28/2023 Scheduled Telephone [facility], Nurse [address] [place] [address] 01/30/2023 [facility]medicine [facility] Eleni Kelsey CRNP [address] [facility] [place] [address] [facility] Shoe Laster [address] [facility] [place] [address] 02/01/2023 Hem/Onc Treatment Hematology Oncology [place], Chair 5 Hem Onc Scenery [address] [facility] [place] [address] 02/01/2023 Office Visit Pharmacy Pharmacist1, [facility] [address] [place] [address] 02/09/2023 Home Visit [facility] July Poe, RN [address] [place] [address] 03/01/2023 PulmDiagnostic Pulmonary Function [place], Pft [address] [place] [address] 03/08/2023 Office Visit Gastroenterology Lyssa Stout CRNP [address] [place] [address] 06/27/2023 Office Visit Hematology Oncology Tono Sanchez MD [address] [place] [address] 07/31/2023 Office Visit Family Medicine [facility] [address] [place] [address] 10/04/2023 Office Visit Gynecology Obstetrics Renetta Martinez MD [address] [place] [address] Scheduled Procedures Name Priority Associated Diagnoses Date/Ti [...] this encounter Medical Devices Implanted Type Area Automotive Sales Executive Device Identifier Shelf Expiration Date Model / Serial / Lot Microtech Sure Clip Implanted:Qty: 2 on 06/03/2020 by Janis Hatch DO at OR [facility] Clip N/A: Colon 04/21/2022 [facility]-F-26-2 35-C-R / / [id number] documented as of this encounter Visit Diagnoses Diagnosis HTN, goal below 140/90 Unspecified essential hypertension 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 Functional urinary incontinence Other cerebral palsy (HCC) DM type 2 with diabetic peripheral neuropathy (HCC) Type II or unspecified type diabetes mellitus with neurological manifestations, not stated as uncontrolled Diabetic foot (HCC) Type II or unspecified type diabetes mellitus with other specified manifestations, not stated as uncontrolled Recurrent major depressive disorder, in partial remission (HCC) documented in this encounter Advance Directives Documents on File Type Date Recorded Patient Bottled Beverage Inspector Expl anation Advance Directives and Living Will 04/29/2021 ADVANCE DIRECTIVE / LIVING WILL LIVING WILL AND HEALTH CARE POA Power of Ramp Supervisor 04/29/2021 POWER OF A [facility] [...] the patient have Health Care Power of Ramp Supervisor? No Code Status History Code Status Date Activated Date Inactivated Comments Full Code 12/27/2021 2:50 PM 12/27/2021 8:02 PM This order reflects the patients wishes and were consensually agreed upon. Question Answer Comments Discussion of Advance Directives occurred with: Not Discussed Does the patient have a Living Will? No Does the patient have Health Care Power of Ramp Supervisor? No Full Code 03/31/2021 8:57 PM [...] Syed Bustos Spouse Emergency Contact Care Teams Research Scientist Relationship Specialty Start Date End Date Kojo Dunn MD [address] [place] [address] PCP - General Family Medicine 03/16/21 documented as of this encounter
--- OUTSIDE RECORDS SUMMARY | 2023-05-10 16:49 | External Medical Summary | Summary of Care ---
Author Name Unknown Organization [facility] Address [address] [facility] [address] Phone [phone] Care Team Providers Care Fluorescent Solution Mixer Name Role Phone Vanita Dunn MD Primary Care Provid er Reason for Referral * Precert (Within 24 hrs (call dept; emergent)) - Pending Review Specialty Diagnoses / Procedures Referred By Evangelina jeter Referred To Contact Radiology Diagnoses New abnormality on chest x-ray Procedures CT CHEST W WO Josh Hernandez PA-C [address] [place] [address] Referral ID Status Reason Start Date Expiration Date V isits Requested Visits Authorized [id number] Pending Review 01/26/2023 999 999 Reason for Visit * Reason Onset Date Comments [facility]: Maintenance 01/26/2023 Encounter Details Date Type Department Care Team Description 01/26/2023 Telephone [facility], [facility] [address] [facility] [place] [address] [facility], Nurse [facility] [address] [facility] [place] [address] [facility]: Maintenance Allergies Active Allergy Reactions Severity Noted Date Comments Adhesive Tape Itching 04/29/2020 Penicillins Rash 02/12/2008 Penicillin G 07/20/2018 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 documented as of this encounter (statuses as of 01/26/2023) Medications Medication Sig Dispensed Refills Start Date End Date Status nystatin (NYSTOP) 727229 UNIT/GM powder Apply topically to affected area 3 times a day. 60 g 1 10/16/2019 Active Dexcom G6 Wood Bucker Device Use as directed. To test blood sugars 4 times a day Dx E11.9 1 Each 0 09/14/2020 Active Dexcom G6 Transmitter Use as directed. To test blood sugars 4 times a day. Change every 90 days. Dx E11.9 1 Each 3 09/14/2020 Active OneTouch Verio In Vitro Strip (Glucose Blood) TESTING once daily 100 Strip 3 10/29/2020 Active OneTouch Delica Plus [id number] TESTING once daily 100 Each 3 10/29/2020 [...] hemoglobin A1c goal of less than 7.0% ([facility]) inject 4.5mg (1 pen) under the skin [...] hemoglobin A1c goal of less than 7.0% ([facility]) USE TO INJECT INSULIN FOUR TIMES DAILY. [...] hemoglobin A1c goal of less than 8.0% ([facility]) 35 Units at breakfast, 39 Units before [...] hemoglobin A1c goal of less than 8.0% ([facility]) Inject 60 units subcutaneously at bedtime 45 mL 3 01/24/2023 Active Nadolol 40 MG Oral Tablet (Corgard)Indication s:HTN, goal below 140/90 TAKE 1 TABLET BY MOUTH DAILY 90 Tablet 3 01/26/2023 Active Escitalopram Oxalate 20 MG Oral Tablet (Lexapro)Indication s:Recurrent major depressive disorder, in partial remission ([facility]) TAKE 1 TABLET BY MOUTH DAILY 90 [...] current situation. 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 if a dispatch machine runner plan is made -continue lexapro Generalized weakness [...] pain 01/24/2012 01/17/2017 Genetic Sleep Disorder Research Other*[id number] 05/13/2011 04/07/2016 Obstructive sleep apnea 01/18/2011 12/27/19 [...] (Prevnar) 05/02/2019 Pneumococcal Conjugate Vacci ne, 20-valent ([id number]) 10/21/2022 Pneumococcal Polysaccharide PPV23 (Pneumovax) 06/01/2010 Seasonal [...] to scheduling regarding same. Shannan Alexander RN [facility] Sandwich Board Carrier [facility] at Home * Addendum Note - Josh [...] I will send a note to the paper slitter so that they are aware on what [...] message to Rosmery Provider. Rachel Tomlinson RN Sandwich Board Carrier DMITRIY documented in this encounter Plan of Treatment Upcoming Encounters Date Type Specialty Care Team Description 01/27/2023 Scheduled Telephone [facility] Spa Technician, [facility] Scott Decker [address] [place] [address] 01/28/2023 Scheduled Telephone [facility], Nurse [facility] [address] [place] [address] 02/01/2023 Hem/Onc Treatment Hematology Oncology [place], Chair [address] [place] [address] 02/01/2023 Office Visit Pharmacy Pharmacist1, [facility] [address] [facility] [place] [address] 02/09/2023 Home Visit [facility] July Poe RN [address] [place] [address] 03/01/2023 PulmDiagnostic Pulmonary Function [place], Pft [address] [place] [address] 03/08/2023 Office Visit Gastroenterology Lyssa Stout CRNP [address] [place] [address] 06/27/2023 Office Visit Hematology Oncology Tono Sanchez MD [address] [facility] [place] [address] 07/31/2023 Office Visit Family Medicine Vanita Dunn MD [address] [place] [address] 10/04/2023 Office Visit Gynecology Obstetrics Renetta Martinez MD [address] [place] [address] Scheduled Orders Name Type Priority Associated Diagnoses [...] this encounter Medical Devices Implanted Type Area Back Feeder Plywood Layup Line Device Identifier Shelf Expiration Date Model / Serial / Lot Microtech Sure Clip Implanted:Qty: 2 on 06/03/2020 by Janis Hatch DO at OR [facility] Clip N/A: Colon 04/21/2022 [facility]-F-26-2 35-C-R / / [id number] documented as of this encounter Visit Diagnoses Diagnosis New abnormality on chest x-ray- Primary Other nonspecific abnormal finding of lung field documented in this encounter Advance Directives Documents on File Type Date Recorded 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 No Code Status History Code Status Date Activated Date Inactivated Comments Full Code 12/27/2021 2:50 PM 12/27/2021 8:02 PM This order reflects the patients wishes and were consensually agreed upon. Question Answer Comments Discussion of Advance Directives occurred with: Not Discussed Does the patient have a Living Will? No Does the patient have Health Care Power of Civil Draftsman? No Full Code 03/31/2021 8:57 PM 04/03/2021 [...] Syed Bustos Spouse Emergency Contact Care Teams Fluorescent Solution Mixer Relationship Specialty Start Date End Date Vanita Dunn MD [address] [place] [address] PCP - General Family Medicine 03/16/21 documented as of this encounter
--- OUTSIDE RECORDS SUMMARY | 2023-05-10 16:50 | External Medical Summary | Summary of Care ---
Author Name Unknown Organization [facility] Address [address] [facility] [place] [address] Phone [phone] Care Team Providers Care Ticket Manager Name Role Phone Vanita Dunn MD Primary Care Provid er Reason for Referral * Evaluate & Treat - Unlimited Visits (Within 30 days (routine)) - Pending Review Specialty Diagnoses / Procedures Referred By Evangelina jeter Referred To Contact Obstetrics/Gynecology / Gynecology Obstetrics Diagnoses Postmenopausal bleeding Vanita Dunn MD [address] [place] [address] Referral ID Status Reason Start Date Expiration Date Visits Requested Visits Authorized [id number] Pending Review Specialty Services Required 01/24/[phone] Question Answer Referral Priority Within 30 days (routine) What condition is the patient being seen for? Bleeding Specific Condition: Irregular Comments Was seen in [place] - is requesting evaluation at [facility]. Not urgent. Reason for Visit * Reason Comments Acute Kidney stones Encounter Details Date Type Department Care Team Description 01/24/2023 Office Visit [facility] [address] [place] [address] Vanita Dunn MD [address] [place] [address] Obesity, morbid (more than 100 lbs over ideal weight or BMI > 40) (HCC)*; Other cerebral palsy (HCC); Wheelchair dependent; Impaired mobility and ADLs; 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; Postmenopausal bleeding Allergies Active Allergy Reactions Severity Noted Date Comments Adhesive Tape Itching 04/29/2020 Penicillins Rash 02/12/2008 Penicillin G 07/20/2018 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 documented as of this encounter (statuses as of 01/24/2023) Medications Medication Sig Dispensed Refills Start Date End Date Status nystatin (NYSTOP) 111685 UNIT/GM powder Apply topically to affected area 3 times a day. 60 g 1 0 Active Dexcom G6 Teletype Mechanic Device Use as directed. To test blood sugars 4 times a day Dx E11.9 1 Each 0 1 Active Dexcom G6 Transmitter Use as directed. To test blood sugars 4 times a day. Change every 90 days. Dx E11.9 1 Each 3 1 Active OneTouch Verio In Vitro Strip (Glucose Blood) TESTING once daily 100 Strip 3 1 Active OneTouch Delica Plus [id number] TESTING once daily 100 Each 3 1 [...] as directed 60 Each 5 2 Active Lidocaine-Prilocain e 2.5-2.5 % External Cream (Emla)Indications:E ncounter for antineoplastic chemotherapy Apply topically to affected area as needed for Other (when accessing port). APPLY TO SKIN OVER MEDIPORT & COVER 1HR PRIOR TO ACCESSING. 30 g 0 2 Active Trulicity 4.5 MG/0.5ML Subcutaneous Solution [...] of less than 7.0% ([facility]) USE TO INJECT INSULIN FOUR TIMES DAILY. 400 Each 3 2 Active Silver sulfADIAZINE 1 % External Cream (Silvadene)Indicati ons:Pressure injury of skin of sacral region, unspecified injury stage Apply topically to affected area daily . Apply to wound 85 g 11 2 Active Nadolol 40 MG Oral Tablet (Corgard)Indication s:HTN, goal below 140/90 TAKE 1 TABLET BY MOUTH DAILY 90 Tablet 1 2 Active Atorvastatin Calcium 80 MG Oral [...] before supper 120 mL 3 2 Active Escitalopram Oxalate 20 MG Oral Tablet (Lexapro)Indication s:Recurrent major depressive disorder, in partial remission (HCC) TAKE 1 TABLET BY MOUTH DAILY 90 Tablet 0 2 Active Furosemide 20 MG Oral Tablet (Lasix) TAKE 1 TABLET BY MOUTH DAILY as needed for lower extremity swelling 90 Tablet 3 2 Active Pantoprazole Sodium 20 MG Oral Tablet Delayed Release (Protonix)Indicatio ns:NAFLD (nonalcoholic fatty liver disease),Other cirrhosis of liver (HCC) Take 2 Tablets by mouth in the morning and 2 Tablets before bedtime. 360 Tablet 1 3 Active Gabapentin 300 MG Oral Capsule (Neurontin)Indicati ons:DM type 2 with diabetic peripheral neuropathy (HCC),Diabetic foot (HCC) TAKE 1 CAPSULE BY MOUTH EVERY MORNING, 1 CAPSULE MIDDAY, AND 2 CAPSULES IN THE EVENING, MAY TAKE AN EXTRA DOSE IN THE MORNING AND MIDDAY IF NEEDED FOR PAIN *MAX DAILY AMOUNT: 6 CAPSULES* 360 Capsule 0 3 Active Oxybutynin Chloride 5 MG Oral Tablet (Ditropan)Indicatio ns: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,Other cerebral palsy (HCC) TAKE 1 TABLET BY MOUTH TWICE DAILY 180 Tablet 0 3 Active Fluticasone-Salmete rol 250-50 MCG/ACT [...] of less than 8.0% ([facility]) Inject 27 units subcutaneously at bedtime and 27 units subcutaneously in the morning. 45 mL 3 3 01/25/20 23 Discontinu ed(Refill) Hospital, Clinic, or Other [...] as of this encounter (statuses as of 01/24/2023) Active Problems Problem Noted Date Thrombocytopenia 01/17/2023 [...] as of this encounter (statuses as of 01/24/2023) Resolved Problems Problem Noted Date Resolved Date [...] pain 01/24/2012 01/17/2017 Genetic Sleep Disorder Research Other*[id number] 05/13/2011 04/07/2016 Obstructive sleep apnea 01/18/2011 12/27/19 [...] as of this encounter (statuses as of 01/24/2023) Immunizations Name Administration Dates Next Due COVID-19 mRNA, LNP-s, No Pre serve, 2-Dose Series (Moderna) 01/05/2022,07/26/2021,12/21/2020,11/09 HEP A - Hepatitis A (Adult > 18 yrs) 09/24/2018, 03/26/2018 Hepatitis B, 20+ yrs 09/24/2018,04/23/2018,03/26 Pneumococcal Conjugate Vacc, 13 Valent (Prevnar) 05/02/2019 Pneumococcal Conjugate Vacci ne, 20-valent ([id number]) 10/21/2022 Pneumococcal Polysaccharide PPV23 (Pneumovax) 06/01/2010 Seasonal [...] Sign Reading Time Taken Comments Blood Pressure 122/70 01/24/2023 11:28 AM EDT Pulse 75 01/24/2023 11:28 AM EDT Temperature - - Respiratory Rate 16 01/24/2023 11:28 AM EDT Oxygen Saturation 97% 01/24/2023 11:28 AM EDT Inhaled Oxygen Concentration - - Weight 113.4 kg (250 lb) 01/24/2023 11:28 AM EDT Height 149.9 cm (4' 11") 01/24/2023 11:28 AM EDT Body Mass Index 50.49 01/24/2023 11:28 AM EDT documented in this encounter Functional Status Functional [...] as of this encounter Progress Notes * Vanita Dunn MD - 01/24/2023 11:40 AM EDT ASSESSMENT / PLAN: Shaina Bustos is a 67 year old female with PMHx wheelchair bound, h/o CP, chronic diastolic HF, cirrhosis of liverNAFLDcomplicated by esoph varices and portal hypertensive gastropathy, T2DM, morbid obesity, htn, hld , THAD on CPAP,restrictive lung disease, moderate persistent asthma,and chronic pain - here for acute concern She is in her usual state of health today. She will continue nebulizer treatments for her breathing. Her pain is managed with OTC pain medicine no more than 2g tylenol. DME orders placed, see below. Pt is wheel chair bound, has severe neuromuscular disease (CP) and requires aids. She is still having ongoing postmenopausal bleeding. Interested in a local provider. Order placed. Obesity, morbid (more than 100 lbs over ideal weight or BMI > 40) (HCC) (Primary) - DURABLE MEDICAL EQUIPMENT - DURABLE MEDICAL EQUIPMENT Other cerebral palsy (HCC) - DURABLE MEDICAL EQUIPMENT - DURABLE MEDICAL EQUIPMENT Wheelchair dependent - DURABLE MEDICAL EQUIPMENT - DURABLE MEDICAL EQUIPMENT Impaired mobility and ADLs - DURABLE MEDICAL EQUIPMENT - DURABLE MEDICAL EQUIPMENT 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 - DURABLE MEDICAL EQUIPMENT Postmenopausal bleeding - CLASSIFICATION CONTROL CLERK REFERRAL OP If needed, prefers contact by: Ok to leave message on phone: SUBJECTIVE: Nursing Notes: Julieth Banerjee [facility] 01/24/23 1133 Signed Shaina Bustos is a 67 year old female who presents today for Chief Complaint Patient presents with Acute Kidney stones HPI: Shaina Bustos is a 67 year old female. Here for recheck. Nurse triage reviewed - 01/24/23 - SOB - GA was able to manage - angeline says that the nebulizer treatment helped and her breathing is better though. Had 2 BMs yesterday Taking the lactulose only twice a day, because more that that makes it runny Still having blood in her pee, which may be from the vagina given that her postmenopausal bleeding is still as of yet uncontrolled. Says she's been told that she has ?kidney stones. Denies flank pain. Tylenol and tramadol helps a little bit. Patient Active Problem List Diagnosis Code Spinal stenosis of lumbar region without neurogenic claudication M48.061 Cerebral palsy ([facility]) G80.9 HTN, goal below 130/80 I10 NG (nonalcoholic steatohepatitis) K75.81 Venous stasis dermatitis of both lower extremities I87.2 DDD (degenerative disc disease), lumbar M51.36 Lymphedema I89.0 Type 2 diabetes mellitus with hemoglobin A1c goal of less than 8.0% ([facility]) E11.9 Vitamin D deficiency E55.9 Restrictive lung disease J98.4 Obesity, morbid (more than 100 lbs over ideal weight or BMI > 40) ([facility]) E66.01 Dyslipidemia E78.5 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 R39.81 Acquired hypothyroidism E03.9 Chronic pain syndrome G89.4 MEDICATION USE AGREEMENT [id number] Cirrhosis of liver ([facility]) K74.60 THAD on CPAP G47.33, Z99.89 Wheelchair dependent Z99.3 DM type 2 with diabetic peripheral neuropathy ([facility]) E11.42 Primary insomnia F51.01 Impaired mobility and ADLs Z74.09, Z78.9 Gastroesophageal reflux disease K21.9 Fibromyalgia M79.7 Iron deficiency anemia due to chronic blood loss D50.0 Esophageal varices (HCC) I85.00 Portal hypertensive gastropathy (HCC) K76.6, K31.89 Chronic diastolic (congestive) heart failure ([facility]) I50.32 Pancytopenia ([facility]) D61.818 Major depressive disorder, recurrent, moderate ([facility]) F33.1 Generalized anxiety disorder F41.1 Hypertensive heart failure (HCC) I11.0 Thrombocytopenia ([facility]) D69.6 Current Outpatient Medications Medication Sig Dispense Refill nystatin (NYSTOP) 585274 UNIT/GM powder Apply topically to affected area 3 times a day. 60 g 1 Dexcom G6 Teletype Mechanic Device Use as directed. To test blood sugars 4 times a day Dx E11.9 1 Each 0 Dexcom G6 Transmitter Use as directed. To test blood sugars 4 times a day. Change every 90 days. Dx E11.9 1 Each 3 OneTouch Verio In Vitro Strip (Glucose Blood) TESTING once daily 100 Strip 3 OneTouch Delica Plus [id number] TESTING once daily 100 Each 3 Nitroglycerin [...] X-Large Use as directed 60 Each 5 Lidocaine-Prilocaine 2.5-2.5 % External Cream (Emla) Apply topically to affected area as neededfor Other (when accessing port). APPLY TO SKIN OVER MEDIPORT & COVER 1HR PRIOR TO ACCESSING. 30g 0 Trulicity 4.5 MG/0.5ML Subcutaneous Solution Pen-injector (Dulaglutide) [...] . Apply to wound 85 g 11 Nadolol 40 MG Oral Tablet (Corgard) TAKE 1 TABLET BY MOUTH DAILY 90 Tablet 1 Atorvastatin Calcium 80 MG Oral Tablet (Lipitor) [...] 45 Units before supper 120 mL 3 Escitalopram Oxalate 20 MG Oral Tablet (Lexapro) TAKE 1 TABLET BY MOUTH DAILY 90 Tablet 0 Furosemide 20 MG Oral Tablet (Lasix) TAKE 1 TABLET BY MOUTH DAILY as needed for lower extremityswelling 90 Tablet 3 Pantoprazole Sodium 20 MG Oral Tablet Delayed Release (Protonix) Take 2 Tablets by mouth in themorning and 2 Tablets before bedtime. 360 Tablet 1 Gabapentin 300 MG Oral Capsule (Neurontin) TAKE 1 CAPSULE BY MOUTH EVERY MORNING, 1 CAPSULE MIDDAY, AND 2 CAPSULES IN THE EVENING, MAY TAKE AN EXTRA DOSE IN THE MORNING AND MIDDAY IF NEEDED FOR PAIN *MAX DAILY AMOUNT: 6 CAPSULES* 360 Capsule 0 Oxybutynin Chloride 5 MG Oral Tablet (Ditropan) TAKE 1 TABLET BY MOUTH TWICE DAILY 180 Tablet 0 Fluticasone-Salmeterol 250-50 MCG/ACT Inhalation Aerosol Powder Breath [...] units subcutaneously at bedtime 45 mL 3 Current Facility-Administered Medications Medication Dose Route Frequency Provider Last Rate Last Admin Albuterol Sulfate (Proventil) (5 MG/ML) 0.5% *conc* inhalation solution 2.5 mg 2.5 mg NebulizerPRN ZAK Connolly Albuterol Sulfate (Proventil) (2.5 MG/3ML) 0.083% inhalation solution 2.5 mg 2.5 mg Nebulizer PRN ZAK Connolly OBJECTIVE: BP 122/70 (BP Site: Right Arm, BP Position: Sitting, BP Cuff Size: Large) | Pulse 75 | Resp 16 | Ht1.499 m (4' 11") | Wt 113.4 kg (250 lb) | SpO2 97% | BMI 50.49 kg/m | BSA 2.17 m Vitals reviewed and is normotensive afebrile and not tachycardic General: No acute distress. Neuro: Alert Pleasant & interactive. Respiratory: Good inspiratory effort, no labored breathing. CTAB CV: holosystolic murmur 3/6 no rubs or gallops HEENT: Conjunctivae appear clear. No swelling noted face or lips. Skin: No rash visible on exposed skin areas, normal coloration & appears dry. Psych: Normal affect. Fluent speech. Total time: I spent a total of 20-29 minutes (exact time 20 mins) on the date of service in preparation, delivery, and documentation of the care provided to Shaina Bustos excluding any time spent in the performance of separately billed services. Vanita Dunn MD [address] [address] There are no Patient Instructions on file for this visit. documented in this encounter Nursing Notes * DEBBIE Mckenzie - 01/24/2023 11:33 AM EDT Shaina Bustos is a 67 year old female who presents today for Chief Complaint Patient presents with Acute Kidney stones documented in this encounter Plan of Treatment Upcoming Encounters Date Type Specialty Care Team Description 01/25/2023 Hem/Onc Treatment Hematology Oncology [place], Chair 11 Hem Onc [facility] [address] [place] [address] 01/25/2023 Office Visit Pharmacy Pharmacist2, [facility] [address] [place] [address] 02/09/2023 Home Visit [facility] July Poe RN [address] [place] [address] 03/01/2023 PulmDiagnostic Pulmonary Function [place], Pft [address] [place] [address] 03/08/2023 Office Visit Gastroenterology Lyssa Stout CRNP [address] [place] [address] 06/27/2023 Office Visit Hematology Oncology Tono Sanchez MD [address] [place] [address] 07/31/2023 Office Visit Family Medicine Vanita Dunn MD [address] [place] [address] 10/04/2023 Office Visit Gynecology Obstetrics Renetta Martinez MD [address] [place] [address] Scheduled Procedures Name Priority Associated Diagnoses Date/Ti me ESOPHAGOGASTRODUODENOSCOPY ( EGD), FLEXIBLE, TRANSORAL, DIAGNOSTIC Recall Esophagitis COLONOSCOPY FLEXIBLE PROXIMAL DIAGNOSTIC Recall History of colonic polyps Scheduled Referrals Name Type Priority Associated Diagnoses Orde r Schedule CLASSIFICATION CONTROL CLERK REFERRAL OP Referral Within 30 days (routine) Postmenopausal bleeding Ordered: 01/24/2023 Health Maintenance Due Date Last Done Comments [...] this encounter Medical Devices Implanted Type Area Animal Skinner Device Identifier Shelf Expiration Date Model / Serial / Lot Microtech Sure Clip Implanted:Qty: 2 on 06/03/2020 by Janis Hatch DO at OR [facility] Clip N/A: Colon 04/21/2022 [facility]-F-26-2 35-C-R / / [id number] documented as of this encounter Visit Diagnoses Diagnosis Obesity, morbid (more than 100 lbs over ideal weight or BMI > 40) (HCC)- Primary Morbid obesity Other cerebral palsy (HCC) Wheelchair dependent Wheelchair dependence Impaired mobility and ADLs Mechanical problems with limbs 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 Functional urinary incontinence Postmenopausal bleeding documented in this encounter Advance Directives Documents on File Type Date Recorded Patient Aoc Plans Intelligence Officer Chief Expl anation Advance Directives and Living Will 04/29/2021 ADVANCE DIRECTIVE / LIVING WILL LIVING WILL AND HEALTH CARE POA Power of Manager Mining 04/29/2021 [facility] [...] patient have Health Care Power of Manager Mining? No Code Status History Code Status Date Activated Date Inactivated Comments Full Code 12/27/2021 2:50 PM 12/27/2021 8:02 PM This order reflects the patients wishes and were consensually agreed upon. Question Answer Comments Discussion of Advance Directives occurred with: Not Discussed Does the patient have a Living Will? No Does the patient have Health Care Power of Manager Mining? No Full Code 03/31/2021 8:57 PM 04/03/2021 [...] Syed Bustos Spouse Emergency Contact Care Teams Ticket Manager Relationship Specialty Start Date End Date Vanita Dunn MD [address] [place] [address] PCP - General Family Medicine 03/16/21 documented as of this encounter
--- OUTSIDE RECORDS SUMMARY | 2023-05-10 16:50 | External Medical Summary | Summary of Care ---
Author Name Unknown Organization [facility] Address [address] [facility] [place] [address] Phone [phone] Care Team Providers Care Bevel Operator Name Role Phone Vanita Dunn MD Primary Care Provid er Encounter Details Date Type Department Care Team Description 01/24/[address] [facility] [address] [place] [address] Vanita Dunn MD [address] [place] [address] Allergies Active Allergy Reactions Severity Noted Date Comments Adhesive Tape Itching 04/29/2020 Penicillins Rash 02/12/2008 Penicillin G 07/20/2018 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 documented as of this encounter (statuses as of 01/24/2023) Medications Medication Sig Dispensed Refills Start Date End Date Status nystatin (NYSTOP) 076435 UNIT/GM powder Apply topically to affected area 3 times a day. 60 g 1 10/16/2019 Active Dexcom G6 Project Estimator Device Use as directed. To test blood sugars 4 times a day Dx E11.9 1 Each 0 09/14/2020 Active Dexcom G6 Transmitter Use as directed. To test blood sugars 4 times a day. Change every 90 days. Dx E11.9 1 Each 3 09/14/2020 Active OneTouch Verio In Vitro Strip (Glucose Blood) TESTING once daily 100 Strip 3 10/29/2020 Active OneTouch Delica Plus [id number] TESTING once daily 100 Each 3 10/29/2020 [...] hemoglobin A1c goal of less than 7.0% ([facility]) USE TO INJECT INSULIN FOUR TIMES DAILY. 400 Each 3 05/23/2022 Active Silver sulfADIAZINE 1 % External Cream (Silvadene)Indicati ons:Pressure injury of skin of sacral region, unspecified injury stage Apply topically to affected area daily . Apply to wound 85 g 11 07/06/2022 Active Nadolol 40 MG Oral Tablet (Corgard)Indication s:HTN, goal below 140/90 TAKE 1 TABLET BY MOUTH DAILY 90 Tablet 1 07/29/2022 Active Atorvastatin Calcium 80 MG Oral Tablet [...] hemoglobin A1c goal of less than 8.0% ([facility]) 35 Units at breakfast, 39 Units before lunch, 45 Units before supper 120 mL 3 07/28/2022 Active Escitalopram Oxalate 20 MG Oral Tablet (Lexapro)Indication s:Recurrent major depressive disorder, in partial remission (HCC) TAKE 1 TABLET BY MOUTH DAILY 90 Tablet 0 08/04/2022 Active Furosemide 20 MG Oral Tablet (Lasix) [...] hemoglobin A1c goal of less than 8.0% ([facility]) Inject 60 units subcutaneously at bedtime 45 mL 3 01/24/2023 Active Hospital, Clinic, or Other Facility Administered [...] pain 01/24/2012 01/17/2017 Genetic Sleep Disorder Research Other*[id number] 05/13/2011 04/07/2016 Obstructive sleep apnea 01/18/2011 12/27/19 [...] (Prevnar) 05/02/2019 Pneumococcal Conjugate Vacci ne, 20-valent ([id number]) 10/21/2022 Pneumococcal Polysaccharide PPV23 (Pneumovax) 06/01/2010 Seasonal [...] Team Description 01/25/2023 Hem/Onc Treatment Hematology Oncology [place], Chair 11 Hem On[address] [place] [address] 01/25/2023 Office Visit Pharm[facility] Pharmacist2, [facility] [address] [facility] [address] 02/09/2023 [facility] Visit [facility] July Poe RN [address] [place] [address] 03/01/2023 PulmDiagnostic Pulmonary Function [place], Pft [address] [place] [address] 03/08/2023 Office Visit Gastroenterology Lyssa Stout CRNP [address] [place] [address] 06/27/2023 Office Visit Hematology Oncology Tono Sanchez MD [address] [place] [address] 07/31/2023 Office Visit Family Medicine Vanita Dunn MD [address] [facility] [address] 10/04/2023 Office Visit Gynecology Obstetrics Renetta Martinez MD [address] [place] [address] Scheduled Procedures Name Priority Associated Diagnoses Date/Ti [...] this encounter Medical Devices Implanted Type Area Camp Tender Device Identifier Shelf Expiration Date Model / Serial / Lot Microtech Sure Clip Implanted:Qty: 2 on 06/03/2020 by Janis Hatch DO at OR [facility] Clip N/A: Colon 04/21/2022 [facility]-F-26-2 35-C-R / / [id number] documented as of this encounter Advance Directives Documents on File Type Date Recorded Patient Pier Worker Expl anation Advance Directives and Living Will 04/29/2021 ADVANCE DIRECTIVE / LIVING WILL LIVING WILL AND HEALTH CARE POA Power of Purse Framer 04/29/2021 [facility] [...] the patient have Health Care Power of Purse Framer? No Code Status History Code Status Date Activated Date Inactivated Comments Full Code 12/27/2021 2:50 PM 12/27/2021 8:02 PM This order reflects the patients wishes and were consensually agreed upon. Question Answer Comments Discussion of Advance Directives occurred with: Not Discussed Does the patient have a Living Will? No Does the patient have Health Care Power of Purse Framer? No Full Code 03/31/2021 8:57 PM 04/03/2021 [...] Syed Bustos Spouse Emergency Contact Care Teams Bevel Operator Relationship Specialty Start Date End Date Vanita Dunn MD [address] [place] [address] PCP - General Family Medicine 03/16/21 documented as of this encounter
--- OUTSIDE RECORDS SUMMARY | 2023-05-10 16:50 | External Medical Summary | Summary of Care ---
Author Name Unknown Organization [facility] Address [address] [place] [address] Phone [phone] Care Team Providers Care Seo Professional Name Role Phone Vanita Dunn MD Primary Care Provid er Reason for Visit * Reason Onset Date Comments Information 01/25/2023 Encounter Details Date Type Department Care Team Description 01/25/2023 Telephone [facility], [place] [address] [facility] [place] [id number] Services, Scheduling [address] [place] [address] Information (/) Allergies Active Allergy Reactions Severity Noted Date Comments Adhesive Tape Itching 04/29/2020 Penicillins Rash 02/12/2008 Penicillin G 07/20/2018 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 documented as of this encounter (statuses as of 01/25/2023) Medications Medication Sig Dispensed Refills Start Date End Date Status nystatin (NYSTOP) 164819 UNIT/GM powder Apply topically to affected area 3 times a day. 60 g 1 10/16/2019 Active Dexcom G6 Boom Master Device Use as directed. To test blood sugars 4 times a day Dx E11.9 1 Each 0 09/14/2020 Active Dexcom G6 Transmitter Use as directed. To test blood sugars 4 times a day. Change every 90 days. Dx E11.9 1 Each 3 09/14/2020 Active OneTouch Verio In Vitro Strip (Glucose Blood) TESTING once daily 100 Strip 3 10/29/2020 Active OneTouch Delica Plus [id number] TESTING once daily 100 Each 3 10/29/2020 [...] less than 8.0% ([facility]) Inject 60 units subcutaneously at bedtime [...] as of this encounter (statuses as of 01/25/2023) Active Problems Problem Noted Date Thrombocytopenia 01/17/2023 [...] not displayed. Medication Regimen: o Beta Jose Cralos Therapy: Other: none ? due to low [...] as of this encounter (statuses as of 01/25/2023) Resolved Problems Problem Noted Date Resolved Date [...] current situation. 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 if a watermelon harvesting supervisor plan is made -continue lexapro Generalized [...] pain 01/24/2012 01/17/2017 Genetic Sleep Disorder Research Other*[id number] 05/13/2011 04/07/2016 Obstructive sleep apnea 01/18/2011 12/27/19 [...] as of this encounter (statuses as of 01/25/2023) Immunizations Name Administration Dates Next Due COVID-19 mRNA, LNP-s, No Pre serve, 2-Dose Series (Moderna) 01/05/2022,07/26/2021,12/21/2020,11/09 HEP A - Hepatitis A (Adult > 18 yrs) 09/24/2018, 03/26/2018 Hepatitis B, 20+ yrs 09/24/2018,04/23/2018,03/26 Pneumococcal Conjugate Vacc, 13 Valent (Prevnar) 05/02/2019 Pneumococcal Conjugate Vacci ne, 20-valent ([id number]) 10/21/2022 Pneumococcal Polysaccharide PPV23 (Pneumovax) 06/01/2010 Seasonal [...] Miscellaneous Notes * Telephone Encounter - THAD Coleman - 01/25/2023 11:14 AM EDT Call to cxr scheduling and they will reach out to pt to explain walk ins for cxr documented in this encounter Plan of Treatment Upcoming Encounters Date Type Specialty Care Team Description 01/25/2023 Hem/Onc Treatment Hematology Oncology [place], Chair [address] [address] 01/25/2023 Office Visit Pharm[facility] Pharmacist2, [facility] [address] 02/09/2023 Home Visit [facility] July Poe RN [address] [place] [address] 03/01/2023 PulmDiagnostic Pulmonary Function [place], Pft [address] [place] [address] 03/08/2023 Office Visit Gastroenterology Lyssa Stout CRNP [address] [place] [address] 06/27/2023 Office Visit Hematology Oncology Tono Sanchez MD [address] [place] [address] 07/31/2023 Office Visit Family Medicine Vanita Dunn MD [address] [facility] [id number] 10/04/2023 Office Visit Gynecology Obstetrics Renetta Martinez MD [address] [place] [address] Scheduled Procedures Name Priority Associated Diagnoses Date/Ti [...] 05/19/2022, Additional history exists Mammogram 12/10/2023 12/09/2022, 12, 09/08/2020, Additional history exists COLONOSCOPY-EVERY 5 YRS [...] this encounter Medical Devices Implanted Type Area Shaping Machine Tender Device Identifier Shelf Expiration Date Model / Serial / Lot Microtech Sure Clip Implanted:Qty: 2 on 06/03/2020 by Janis Hatch DO at OR [facility] Clip N/A: Colon 04/21/2022 [facility]-F-26-2 35-C-R / / [id number] documented as of this encounter Advance Directives Documents on File Type Date Recorded 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 No Code Status History Code Status Date Activated Date Inactivated Comments Full Code 12/27/2021 2:50 PM 12/27/2021 8:02 PM This order reflects the patients wishes and were consensually agreed upon. Question Answer Comments Discussion of Advance Directives occurred with: Not Discussed Does the patient have a Living Will? No Does the patient have Health Care Power of Glass Inserter? No Full Code 03/31/2021 8:57 PM 04/03/2021 [...] Syed Bustos Spouse Emergency Contact Care Teams Seo Professional Relationship Specialty Start Date End Date Vanita Dunn MD [address] [place] [address] PCP - General Family Medicine 03/16/21 documented as of this encounter
--- OUTSIDE RECORDS SUMMARY | 2023-05-10 16:50 | External Medical Summary | Summary of Care ---
Author Name Unknown Organization [facility] Address [address] [facility] [place] [address] Phone [phone] Care Team Providers Care Tire Duster Name Role Phone Vanita Dunn MD Primary Care Provid er Reason for Visit * Reason Onset Date Comments [facility]: Maintenance 01/18/2023 Encounter Details Date Type Department Care Team Description 01/18/2023 Telephone [facility], [facility] [address] [facility] [place] [address] July Poe, RN [address] [facility] [address] [facility]: Maintenance Allergies Active Allergy Reactions Severity Noted Date Comments Adhesive Tape Itching 04/29/2020 Penicillins Rash 02/12/2008 Penicillin G 07/20/2018 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 documented as of this encounter (statuses as of 01/24/2023) Medications Medication Sig Dispensed Refills Start Date End Date Status nystatin (NYSTOP) 722236 UNIT/GM powder Apply topically to affected area 3 times a day. 60 g 1 0 Active Dexcom G6 Sound Engineering Technician Device Use as directed. To test blood sugars 4 times a day Dx E11.9 1 Each 0 1 Active Dexcom G6 Transmitter Use as directed. To test blood sugars 4 times a day. Change every 90 days. Dx E11.9 1 Each 3 1 Active OneTouch Verio In Vitro Strip (Glucose Blood) TESTING once daily 100 Strip 3 1 Active OneTouch Delica Plus [id number] TESTING once daily 100 Each 3 1 [...] hemoglobin A1c goal of less than 8.0% ([facility]) 35 Units at breakfast, 39 Units [...] MOUTH 3 TIMES DAILY 1200 mL 0 Active Lantus SoloStar 100 UNIT/ML Subcutaneous Solution Pen-injectorIndicat ions:Type 2 diabetes mellitus with hemoglobin A1c goal of less than 8.0% ([facility]) Inject 27 units subcutaneously at bedtime and 27 units subcutaneously in the morning. 45 mL 3 3 01/25/20 Discontinu ed(Refill) Hospital, Clinic, or Other Facility [...] situation. 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 if a terminal gauger plan is made -continue lexapro Generalized weakness [...] pain 01/24/2012 01/17/2017 Genetic Sleep Disorder Research Other*[id number] 05/13/2011 04/07/2016 Obstructive sleep apnea 01/18/2011 12/27/19 [...] (Prevnar) 05/02/2019 Pneumococcal Conjugate Vacci ne, 20-valent ([id number]) 10/21/2022 Pneumococcal Polysaccharide PPV23 (Pneumovax) 06/01/2010 Seasonal [...] Encounter - Vanita Dunn MD - 01/24/2023 6:37 PM EDT Reviewed during todays ov * Telephone Encounter - July Poe RN - 01/18/2023 1:57 PM EDT Pt requesting an order for a new lift chair. Is this something that can be ordered through insurance? Please advise. Thank you. documented in this encounter Plan of Treatment Upcoming Encounters Date Type Specialty Care Team Description 01/25/2023 Hem/Onc Treatment Hematology Oncology [place], Chair 11 Hem Onc Scenery [address] [facility] [place] [address] 01/25/2023 Office Visit Pharmacy Pharmacist2, [facility] Sp [address] [facility] [place] [address] 02/09/2023 Home Visit [facility] July Poe, RN [address] [place] [address] 03/01/2023 PulmDiagnostic Pulmonary Function [place], Pft [address] [place] [address] 03/08/2023 Office Visit Gastroenterology Lyssa Stout CRNP [address] [place] [address] 06/27/2023 Office Visit Hematology Oncology Tono Sanchez MD [address] [place] [address] 07/31/2023 Office Visit Family Medicine Vanita Dunn MD [address] [place] [address] 10/04/2023 Office Visit Gynecology Obstetrics Renetta Martinez [facility] [address] [facility] [address] Scheduled Procedures Name Priority Associated Diagnoses Date/Ti [...] this encounter Medical Devices Implanted Type Area Hand Cutter Device Identifier Shelf Expiration Date Model / Serial / Lot Microtech Sure Clip Implanted:Qty: 2 on 06/03/2020 by Janis Hatch DO at OR [facility] Clip N/A: Colon 04/21/2022 [facility]-F-26-2 35-C-R / / [id number] documented as of this encounter Advance Directives Documents on File Type Date Recorded Patient Vamp Maker Expl anation Advance Directives and Living Will 04/29/2021 ADVANCE DIRECTIVE / LIVING WILL LIVING WILL AND HEALTH CARE POA Power of Quality Control Engineer 04/29/2021 POWER OF A [facility] [...] the patient have Health Care Power of Quality Control Engineer? No Code Status History Code Status Date Activated Date Inactivated Comments Full Code 12/27/2021 2:50 PM 12/27/2021 8:02 PM This order reflects the patients wishes and were consensually agreed upon. Question Answer Comments Discussion of Advance Directives occurred with: Not Discussed Does the patient have a Living Will? No Does the patient have Health Care Power of Quality Control Engineer? No Full Code 03/31/2021 8:57 PM [...] Syed Bustos Spouse Emergency Contact Care Teams Tire Duster Relationship Specialty Start Date End Date Vanita Dunn MD [address] [place] [address] PCP - General Family Medicine 03/16/21 documented as of this encounter
--- OUTSIDE RECORDS SUMMARY | 2023-05-10 16:51 | External Medical Summary | Summary of Care ---
Author Name Unknown Organization [facility] Address [address] [facility] [place] [address] Phone [phone] Care Team Providers Care Mirror Finishing Machine Operator Name Role Phone Vanita Dunn MD Primary Care Provid er Reason for Visit * Reason Comments [facility]: Maintenance Encounter Details Date Type Department Care Team Description 01/11/2023 Home Visit [facility], [facility] [address] [place] [address] July Poe, RN [address] [place] [address] Allergies Active Allergy Reactions Severity Noted Date Comments Adhesive Tape Itching 04/29/2020 Penicillins Rash 02/12/2008 Penicillin G 07/20/2018 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 documented as of this encounter (statuses as of 01/18/2023) Medications Medication Sig Dispensed Refills Start Date End Date Status nystatin (NYSTOP) 500125 UNIT/GM powder Apply topically to affected area 3 times a day. 60 g 1 10/16/19 20 Active Dexcom G6 Certified Master Safe Technician Device Use as directed. To test [...] 3 10/29/19 21 Active OneTouch Delica Plus [id number] TESTING once daily 100 Each 3 10/29/19 [...] DAILY 68 Cap 0 05/29/20 21 Active Additional Information Patient not taking.Reported on 12/06/2022 Fluticasone Propionate 50 MCG/ACT Nasal Suspension (Flonase)Indicatio [...] to wound 85 g 11 07/06/20 Active Nadolol 40 MG Oral Tablet (Corgard)Indicatio ns:HTN, goal below 140/90 TAKE 1 TABLET BY MOUTH DAILY 90 Tablet 1 07/29/20 22 Active Atorvastatin Calcium 80 MG Oral [...] supper 120 mL 3 07/28/20 22 Active Escitalopram Oxalate 20 MG Oral Tablet (Lexapro)Indicatio ns:Recurrent major depressive disorder, in partial remission (HCC) TAKE 1 TABLET BY MOUTH DAILY 90 Tablet 0 08/04/20 22 Active Furosemide 20 MG Oral Tablet (Lasix) TAKE 1 TABLET BY MOUTH DAILY as needed for lower extremity swelling 90 Tablet 3 09/09/20 22 Active Lantus SoloStar 100 UNIT/ML Subcutaneous Solution Pen-injectorIndica tions:Type 2 diabetes mellitus with hemoglobin A1c goal of less than 8.0% (HCC) Inject 27 units subcutaneously at bedtime and 27 units subcutaneously in the morning. 45 mL 3 10/13/19 23 Active Pantoprazole Sodium 20 MG Oral Tablet Delayed Release (Protonix)Indicati ons:NAFLD (nonalcoholic fatty liver disease),Other cirrhosis of liver (HCC) Take 2 Tablets by mouth in the morning and 2 Tablets before bedtime. 360 Tablet 1 10/18/19 23 Active Gabapentin 300 MG Oral Capsule (Neurontin)Indicat ions:DM type 2 with diabetic peripheral neuropathy (HCC),Diabetic foot (HCC) TAKE 1 CAPSULE BY MOUTH EVERY MORNING, 1 CAPSULE MIDDAY, AND 2 CAPSULES IN THE EVENING, MAY TAKE AN EXTRA DOSE IN THE MORNING AND MIDDAY IF NEEDED FOR PAIN *MAX DAILY AMOUNT: 6 CAPSULES* 360 Capsule 0 11/11/19 23 Active Oxybutynin Chloride 5 MG Oral Tablet (Ditropan)Indicati ons: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,Other cerebral palsy (HCC) TAKE 1 TABLET BY MOUTH TWICE DAILY 180 Tablet 0 11/11/19 23 Active Fluticasone-Salmet jayme 250-50 MCG/ACT Inhalation [...] DAILY before breakfast 90 Capsule 3 12/24/19 Active Potassium Chloride ER 10 MEQ Oral Tablet Extended ReleaseIndications :Hypokalemia Take by mouth 1 tablet in the morning with food. 90 Tablet 3 01/02/20 23 Active Lactulose 10 GM/15ML Oral Solution (Constulose) TAKE 30G (45ML) BY MOUTH 3 TIMES DAILY 1200 mL 0 10/28/19 23 023 Discontinued(Re fill) Macrobid 100 MG Oral Capsule Take 1 Capsule by mouth in the morning and 1 Capsule before bedtime. With food until gone. 10 Capsule 0 12/05/19 23 023 Discontinued Hospital, Clinic, or Other [...] as of this encounter (statuses as of 01/18/2023) Active Problems Problem Noted Date Thrombocytopenia 01/17/2023 Hypertensive heart failure 11/21/2022 Major depressive disorder, recurrent, mo derate 11/01/2022 Generalized anxiety disorder 11/01/2022 Pancytopenia 04/29/2022 Chronic diastolic (congestive) heart jaymie lure 09/13/2021 Last Assessment & Plan: Not doing daily weights. Taking "a fluid pill." Unsure of meds. Edema in legs seems to be at baseline Portal hypertensive gastropathy 03/16/20 21 Esophageal varices 07/06/2020 Last Assessment & Plan: Continue pantoprazole and Nadolol Iron deficiency anemia due to chronic bl ood loss 12/03/2019 Last Assessment & Plan: Last hgb 11.2 10/14/22. stable Gastroesophageal reflux disease 04/08/20 19 Fibromyalgia 04/08/2019 DM type 2 with diabetic peripheral neuro heather 04/04/2019 Primary insomnia 04/04/2019 Impaired mobility and ADLs 04/04/2019 Wheelchair dependent 12/21/2018 THAD on CPAP 12/26/2017 Last Assessment & Plan: compliant Cirrhosis of liver 11/20/2017 Last Assessment & [...] lung disease 12/10/2014 Last Assessment & Plan: Has not been using nebs. Lost top piece. EMILE provided replacement today Agreed to start using nebs again for SOB. Type 2 diabetes mellitus with hemoglobin A1c goal of less than 8.0% 09/26/2013 Overview: ICD-10 update of inactive term Last Assessment & Plan: Vague on what blood sugars have been running. "high" today Continue current regimen: lantus 60 u HS, novolog 35 u with breakfast, 39 u at lunch, 55 u at dinner. Brice adjusts prn. Trulicity, metformin Vitamin D deficiency 09/26/2013 Lymphedema 03/11/2013 Venous stasis dermatitis of both lower e xtremities 05/07/2012 NG (nonalcoholic steatohepatitis) 04/12 Last Assessment & Plan: Noncompliant with lactuose HTN, goal below 130/80 03/27/2012 Last Assessment & Plan: BP stable -continue isosorbide, nadolol Cerebral palsy 01/24/2012 Spinal stenosis of lumbar region without neurogenic claudication 12/27/2010 DDD (degenerative disc disease), lumbar Dyslipidemia documented as of this encounter (statuses as of 01/18/2023) Resolved Problems Problem Noted Date Resolved Date [...] current situation. 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 if a snf plan is made -continue lexapro Generalized weakness [...] pain 01/24/2012 01/17/2017 Genetic Sleep Disorder Research Other*[id number] 05/13/2011 04/07/2016 Obstructive sleep apnea 01/18/2011 12/27/19 [...] as of this encounter (statuses as of 01/18/2023) Immunizations Name Administration Dates Next Due COVID-19 mRNA, LNP-s, No Pre serve, 2-Dose Series (Moderna) 01/05/2022,07/26/2021,12/21/2020,11/09 HEP A - Hepatitis A (Adult > 18 yrs) 09/24/2018, 03/26/2018 Hepatitis B, 20+ yrs 09/24/2018,04/23/2018,03/26 Pneumococcal Conjugate Vacc, 13 Valent (Prevnar) 05/02/2019 Pneumococcal Conjugate Vacci ne, 20-valent ([id number]) 10/21/2022 Pneumococcal Polysaccharide PPV23 (Pneumovax) 06/01/2010 Seasonal [...] Sign Reading Time Taken Comments Blood Pressure 108/60 01/11/2023 11:11 AM EDT Pulse 67 01/11/2023 11:11 AM EDT Temperature 36.7 C (98.1 F) 01/11/2023 11:11 AM E DT Respiratory Rate 18 01/11/2023 11:11 AM EDT Oxygen Saturation 97% 01/11/2023 11:11 AM EDT Inhaled Oxygen Concentration - - [...] of this encounter Progress Notes * July Poe, RN - 01/11/2023 10:52 AM EDT [facility] Visit Date: 01/11/2023 Time: 10:52 AM Name: Shaina Bustos : 1955 Current Concerns: Pt seen for return RNCM visit Pt concerned because she did not receive a new purewick and canister - last visit was told will notbe covered by insurance by [employer] but [facility] was supposed to look into that and call pt back - she has not heard anything since. Msg sent to intake to f/u on Pt also requesting an order for a new lift chair TE sent to pcp to see if this is something that could go through insurance. Pt denies any other concerns at this time. Has a M-F caregiver now Vitals stable. Area on buttocks is closed, no skin breakdown noted. Breathing and cough is at baseline Discussed possible graduation at next RNCM visit. Physical Exam: BP 108/60 | Pulse 67 | Temp 36.7 C (98.1 F) | Resp 18 | SpO2 97% Pain 0 Physical Exam Constitutional: General: She is not in acute distress. Appearance: She is obese. Cardiovascular: Rate and Rhythm: Normal rate and regular rhythm. Pulses: Normal pulses. Heart sounds: Normal heart sounds. Pulmonary: Effort: Pulmonary effort is normal. Breath sounds: Normal breath sounds. Musculoskeletal: Right lower leg: Edema (+1) present. Left lower leg: Edema (+1) present. Skin: General: Skin is warm and dry. Neurological: Mental Status: She is alert and oriented to person, place, and time. Problems/Symptoms: Review of Systems Constitutional: Negative. HENT: Negative. Eyes: Negative. Respiratory: Positive for cough ("off and on") and shortness of breath (at baseline). Cardiovascular: Positive for leg swelling. Gastrointestinal: Negative. Genitourinary: Negative. Musculoskeletal: Positive for arthralgias and gait problem (non ambulatory). Skin: Negative. Psychiatric/Behavioral: Negative. Medication Reconciliation: (See medication list) Does patient take medications as ordered: Yes Patient Well Being: PHQ2/9: No questionnaires available. No change in living situation Now has cg 5 days a week No falls [facility]-10 Completed this Visit: No. Routine visit and No falls since last visit Advanced Care Planning: Living Will. Patient's Goals of Care: 1. Remain in home 2. Get a time clock mechanic cg 3. Get out more Reinforcement/Education: DIABETES: [...] daily if no bm within 24 hrs Possible graduation next RNCM visit Home Interventions Provided: Home Intervention: Other; tara Consulted PCP/Specialist Reinforced current Plan of Care, including self-management and medication regimen Patient's 'Red Flags': 1. Increased cough with green or yellow sputum 2. Lethargy, sleeping more 3. No bm in 24 hrs Patient Needs to Remember: Call [facility] at with any new or worsening health concerns or problems, red flag symptoms. Referrals Needed: Other none Follow Up: Is there cellular connectivity/connectivity in the home? Yes Does the patient have internet in the home? Yes Patient encouraged to call the intake phone number for all urgent but not emergent issues. Is the patient new to [facility] within the last 30 days? No, Assess appropriateness for upcoming telehealth visits. Cancel telehealth visits & schedule home visit with care steam box operator(s)as indicated. Provider is in agreement with Plan of Care: Yes Scheduled to follow up with patient in 2 weeks with provider and 2 weeks after with RNCM. July Poe RN 01/11/2023 10:52 AM documented in this encounter Plan of Treatment Upcoming Encounters Date Type Specialty Care Team Description 01/23/2023 Home Visit [facility] Aleyda Campos PA-C [address] [place] [address] 01/25/2023 Hem/Onc Treatment Hematology Oncology [place], Chair 11 Hem Onc [facility] [address] [facility] [address] 01/25/2023 Office Visit Pharmacy Pharmacist2, [facility] [address] 02/09/2023 Home Visit [facility] July Poe RN [address] [place] [address] 03/01/2023 PulmDiagnostic Pulmonary Function [place], [address]ft [address] [address] 03/08/2023 Office Visit Gastroenterology Lyssa Stout CRNP [address] [place] [address] 06/27/2023 Office Visit Hematology Oncology Tono Sanchez [facility] [address] [facility] [address] Scheduled Procedures Name Priority Associated Diagnoses Date/Ti [...] this encounter Medical Devices Implanted Type Area Gre Instructor Device Identifier Shelf Expiration Date Model / Serial / Lot Microtech Sure Clip Implanted:Qty: 2 on 06/03/2020 by Janis Hatch, DO at OR [facility] Clip N/A: Colon 04/21/2022 [facility]-F-26-2 35-C-R / / [id number] documented as of this encounter Advance Directives Documents on File Type Date Recorded Patient Director Of Student Affairs Expl anation Advance Directives and Living Will 04/29/2021 ADVANCE DIRECTIVE / LIVING WILL LIVING WILL AND HEALTH CARE POA Power of Deputy Sheriff Building Guard 04/29/2021 POWER OF A [facility] C[facility] [...] the patient have Health Care Power of Deputy Sheriff Building Guard? No Code Status History Code Status Date Activated Date Inactivated Comments Full Code 12/27/2021 2:50 PM 12/27/2021 8:02 PM This order reflects the patients wishes and were consensually agreed upon. Question Answer Comments Discussion of Advance Directives occurred with: Not Discussed Does the patient have a Living Will? No Does the patient have Health Care Power of Deputy Sheriff Building Guard? No Full Code 03/31/2021 8:57 PM 04/03/2021 [...] Syed Bustos Spouse Emergency Contact Care Teams Mirror Finishing Machine Operator Relationship Specialty Start Date End Date Vanita Dunn MD [address] [facility] [place] [id number] PCP - General Family Medicine 03/16/21 documented as of this encounter
--- OUTSIDE RECORDS SUMMARY | 2023-05-10 16:51 | External Medical Summary | Summary of Care ---
Author Name Unknown Organization [facility] Address [address] [facility] [place] [address] Phone [phone] Care Team Providers Care Solar Energy Engineer Name Role Phone Vanita Dunn MD Primary Care Provid er Reason for Visit * Reason Comments Acute Right knee pain x 2- 3 weeks, no known injuries Encounter Details Date Type Department Care Team Description 01/17/2023 Office Visit [facility] [address] [place] [address] Memo Snider MD [address] [place] [address] Chronic pain of right knee*; Thrombocytopenia ([facility]); Other cerebral palsy ([facility]); Type 2 diabetes mellitus with hemoglobin A1c goal of less than 8.0% ([facility]) Allergies Active Allergy Reactions Severity Noted Date Comments Adhesive Tape Itching 04/29/2020 Penicillins Rash 02/12/2008 Penicillin G 07/20/2018 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 documented as of this encounter (statuses as of 01/17/2023) Medications Medication Sig Dispensed Refills Start Date End Date Status nystatin (NYSTOP) 093293 UNIT/GM powder Apply topically to affected area 3 times a day. 60 g 1 10/16/19 20 Active Dexcom G6 Senior Pricing Analyst Device Use as directed. To test [...] 3 10/29/19 21 Active OneTouch Delica Plus [id number] TESTING once daily 100 Each 3 10/29/19 [...] MOUTH ONCE DAILY 68 Cap 0 05/29/20 Active Additional Information Patient not taking.Reported on [...] . Apply to wound 85 g 07/06/20 22 Active Nadolol 40 MG Oral Tablet (Corgard)Indicatio [...] needed for Cough. 30 Capsule 1 12/13/19 Active Linzess 290 MCG Oral Capsule (linaCLOtide) TAKE 1 CAPSULE BY MOUTH once DAILY before breakfast 90 Capsule 3 12/24/19 Active Potassium Chloride ER 10 MEQ Oral Tablet Extended ReleaseIndications :Hypokalemia Take by mouth 1 tablet in the morning with food. 90 Tablet 3 01/02/20 Active Lactulose 10 GM/15ML Oral Solution (Constulose) TAKE 30G (45ML) BY MOUTH 3 TIMES DAILY 1200 mL 0 01/17/20 Active Macrobid 100 MG Oral Capsule Take 1 [...] as of this encounter (statuses as of 01/17/2023) Active Problems Problem Noted Date Thrombocytopenia 01/17/2023 Hypertensive heart failure 11/21/2022 Major depressive disorder, recurrent, mo derate 11/01/2022 Generalized anxiety disorder 11/01/2022 Pancytopenia 04/29/2022 Chronic diastolic (congestive) heart jaymie lure 09/13/2021 Last Assessment & Plan: Not doing daily weights. Taking "a fluid pill." Unsure of meds. Edema in legs seems to be at baseline Portal hypertensive gastropathy 03/16/20 Esophageal varices 07/06/2020 Last Assessment & Plan: [...] dermatitis of both lower e xtremities 05/07/2012 THOMPSON (nonalcoholic steatohepatitis) 04/12 Last Assessment & Plan: Noncompliant with lactuose HTN, goal below 130/80 03/27/2012 Last Assessment & Plan: BP stable -continue isosorbide, nadolol Cerebral palsy 01/24/2012 Spinal stenosis of lumbar region without neurogenic claudication 12/27/2010 DDD (degenerative disc disease), lumbar Dyslipidemia documented as of this encounter (statuses as of 01/17/2023) Resolved Problems Problem Noted Date Resolved Date [...] situation. 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 if a intermodal customer service plan is made -continue lexapro Generalized weakness [...] pain 01/24/2012 01/17/2017 Genetic Sleep Disorder Research Other*[id number] 05/13/2011 04/07/2016 Obstructive sleep apnea 01/18/2011 12/27/19 [...] as of this encounter (statuses as of 01/17/2023) Immunizations Name Administration Dates Next Due COVID-19 mRNA, LNP-s, No Pre serve, 2-Dose Series (Moderna) 01/05/2022,07/26/2021,12/21/2020,11/09 HEP A - Hepatitis A (Adult > 18 yrs) 09/24/2018, 03/26/2018 Hepatitis B, 20+ yrs 09/24/2018,04/23/2018,03/26 Pneumococcal Conjugate Vacc, 13 Valent (Prevnar) 05/02/2019 Pneumococcal Conjugate Vacci ne, 20-valent ([id number]) 10/21/2022 Pneumococcal Polysaccharide PPV23 (Pneumovax) 06/01/2010 Seasonal [...] Sign Reading Time Taken Comments Blood Pressure 110/70 01/17/2023 10:28 AM EDT Pulse 80 01/17/2023 10:28 AM EDT Temperature - - Respiratory Rate 18 01/17/2023 10:28 AM EDT Oxygen Saturation 95% 01/17/2023 10:28 AM EDT Inhaled Oxygen Concentration - - [...] as of this encounter Progress Notes * Memo Snider MD - 01/17/2023 10:56 AM EDT Images from the original note were not included. Assessment and Plan 67-year-old female presenting with right knee pain. I suspect this is most likely osteoarthritis given reassuring exam. She does have chronic swelling of the right greater than left leg. I do not believe this is contributory to her knee pain. At this point conservative management is appropriate given the patient does not ambulate and has significant medical comorbidities. Discussed use of icy hot, Voltaren gel, sparing use of Tylenol orally. Patient will let the office know if she is not seeingimprovement over the next couple of weeks. At that time could consider steroid injection of the knee, however, body habitus would make this slightly challenging. 1. Chronic pain of right knee 2. Thrombocytopenia (HCC) 3. Other cerebral palsy (HCC) 4. Type 2 diabetes mellitus with hemoglobin A1c goal of less than 8.0% (HCC) Wrap-Up Follow up as needed. History of Present Illness The patient is a 67 year old female with fairly extensive past medical history including cerebral palsy, type 2 diabetes, THAD, chronic diastolic heart failure, Thompson cirrhosis who presents with right knee pain. 2-3 weeks of right knee pain. Anterior knee. No known injury. Patient is exclusively wheelchair-bound. No fevers, chills, other signs of systemic infection. No redness or other rashes at the knee. Right leg is chronically more swollen than the left. Using icy hot and infrequent Tylenol. Physical Exam Vitals: 01/17/23 1028 Pulse: 80 Resp: 18 SpO2: 95% BP: 110/70 Physical Exam Physical Exam Vitals reviewed. Constitutional: Comments: Wheelchair-bound Musculoskeletal: Comments: Right knee with mild pain to palpation over the anterior joint line and patella. No erythema or warmth to the right knee. No pain to palpation over the popliteal fossa. Limited exam due to patient's wheelchair-bound status and body habitus. I spent a total of 30-39 minutes (exact time 32 mins) on the date of service in preparation, delivery, and documentation of the care provided to Shaina Bustos excluding any time spent in the performance of separately billed services. documented in this encounter Nursing Notes * Shahnaz Francis LPN - 01/17/2023 10:28 AM EDT The patient has been properly identified by confirmation of name and date of . Chief Complaint Patient presents with Acute Right knee pain x 2-3 weeks, no known injuries documented in this encounter Plan of Treatment Upcoming Encounters Date Type Specialty Care Team Description 01/23/2023 Home Visit [facility] Aleyda Campos PA-C [address] [facility] [place] [address] 01/25/2023 Hem/Onc Treatment Hematology Oncology Serafina, Chair 11 Hem Onc [facility] [address] [place] [address] 01/25/2023 Office Visit Pharmacy Pharmacist2, [facility] [address] [place] [address] 02/09/2023 Home Visit [facility] July Poe RN [address] [place] [address] 03/01/2023 PulmDiagnostic Pulmonary Function West, Pft [address] [place] [address] 03/08/2023 Office Visit Gastroenterology Lyssa Stout CRNP [address] [place] [address] 06/27/2023 Office Visit Hematology Oncology Tono Sanchez MD [address] [place] [address] Scheduled Procedures Name Priority Associated Diagnoses Date/Ti [...] 02/03/2017, Additional history exists HgA1C 06/08/2023 12/06/2022, 090 04/2022, 01/24/2022, Additional history exists TSH FOR [...] this encounter Medical Devices Implanted Type Area Clinical Material Handler Device Identifier Shelf Expiration Date Model / Serial / Lot Microtech Sure Clip Implanted:Qty: 2 on 06/03/2020 by Janis Hatch DO at OR [facility] Clip N/A: Colon 04/21/2022 [facility]-F-26-2 35-C-R / / [id number] documented as of this encounter Visit Diagnoses Diagnosis Chronic pain of right knee- Primary Thrombocytopenia (HCC) Thrombocytopenia, unspecified Other cerebral palsy (HCC) Type 2 diabetes mellitus with hemoglobin A1c goal of less than 8.0% (HCC) documented in this encounter Advance Directives Documents on File Type Date Recorded 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 No Code Status History Code Status Date Activated Date Inactivated Comments Full Code 12/27/2021 2:50 PM 12/27/2021 8:02 PM This order reflects the patients wishes and were consensually agreed upon. Question Answer Comments Discussion of Advance Directives occurred with: Not Discussed Does the patient have a Living Will? No Does the patient have Health Care Power of Bible Worker? No Full Code 03/31/2021 8:57 PM [...] on File Name Relationship [facility] Syed Bustos Spouse Emergency Contact Care Teams Solar Energy Engineer Relationship Specialty Start Date End Date Vanita Dunn MD [address] [place] [address] PCP - General Family Medicine 03/16/21 documented as of this encounter
--- OUTSIDE RECORDS SUMMARY | 2023-05-10 16:51 | External Medical Summary | Summary of Care ---
Author Name Unknown Organization [facility] Address [address] [facility] [place] [address] Phone [phone] Care Team Providers Care Label Coder Name Role Phone Kojo Hinojosa MD Primary Care Provid er Reason for Visit * Reason Comments eRx-Medication Refill Encounter Details Date Type Department Care Team Description 01/15/[address] [address] Lyssa Stout CRNP [address] [facility] [address] Allergies Active Allergy Reactions Severity Noted Date Comments Adhesive Tape Itching 04/29/2020 Penicillins Rash 02/12/2008 Penicillin G 07/20/2018 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 documented as of this encounter (statuses as of 01/16/2023) Medications Medication Sig Dispensed Refills Start Date End Date Status nystatin (NYSTOP) 221462 UNIT/GM powder Apply topically to affected area 3 times a day. 60 g 1 0 Active Dexcom G6 Pie Filling Mixer Device Use as directed. To test blood sugars 4 times a day Dx E11.9 1 Each 0 1 Active Dexcom G6 Transmitter Use as directed. To test blood sugars 4 times a day. Change every 90 days. Dx E11.9 1 Each 3 1 Active OneTouch Verio In Vitro Strip (Glucose Blood) TESTING once daily 100 Strip 3 1 Active GelSightTouch Delica Plus [id number] TESTING once daily 100 Each 3 1 [...] ONCE DAILY 68 Cap 0 1 Active Additional Information Patient not taking.Reported on 12/06/2022 Fluticasone Propionate 50 MCG/ACT Nasal Suspension (Flonase)Indication [...] less than 8.0% ([facility]) 35 Units at breakfast, 39 Units before [...] extremity swelling 90 Tablet 3 2 Active Lantus SoloStar 100 UNIT/ML Subcutaneous Solution Pen-injectorIndicat ions:Type 2 diabetes mellitus with hemoglobin A1c goal of less than 8.0% (HCC) Inject 27 units subcutaneously at bedtime and 27 units subcutaneously in the morning. 45 mL 3 3 Active Pantoprazole Sodium 20 MG Oral Tablet [...] MOUTH DAILY 30 Tablet 5 3 Active Macrobid 100 MG Oral Capsule Take 1 Capsule by mouth in the morning and 1 Capsule before bedtime. With food until gone. 10 Capsule 0 3 Active Additional Information Patient not taking.Reported on 12/09/2022 Cetirizine HCl 10 MG Oral Tablet (ZyrTEC) [...] TIMES DAILY 1200 mL 0 3 Active Lactulose 10 GM/15ML Oral Solution (Constulose) TAKE 30G (45ML) BY MOUTH 3 TIMES DAILY 1200 mL 0 3 01/17/20 Discontinu ed(Refill) Hospital, Clinic, or Other Facility [...] as of this encounter (statuses as of 01/16/2023) Active Problems Problem Noted Date Hypertensive heart failure 11/21/2022 Major depressive disorder, [...] as of this encounter (statuses as of 01/16/2023) Resolved Problems Problem Noted Date Resolved Date [...] pain 01/24/2012 01/17/2017 Genetic Sleep Disorder Research Other*[id number] 05/13/2011 04/07/2016 Obstructive sleep apnea 01/18/2011 12/27/19 [...] as of this encounter (statuses as of 01/16/2023) Immunizations Name Administration Dates Next Due COVID-19 mRNA, LNP-s, No Pre serve, 2-Dose Series (Moderna) 01/05/2022,07/26/2021,12/21/2020,11/09 HEP A - Hepatitis A (Adult > 18 yrs) 09/24/2018, 03/26/2018 Hepatitis B, 20+ yrs 09/24/2018,04/23/2018,03/26 Pneumococcal Conjugate Vacc, 13 Valent (Prevnar) 05/02/2019 Pneumococcal Conjugate Vacci ne, 20-valent ([id number]) 10/21/2022 Pneumococcal Polysaccharide PPV23 (Pneumovax) 06/01/2010 Seasonal [...] Miscellaneous Notes * Telephone Encounter - Kojo Hinojosa MD - 01/16/2023 12:42 PM EDT Forwarding to managing provider * Telephone Encounter - Kojo Hinojosa MD - 01/16/2023 12:42 PM EDT Refused Prescriptions: Disp Refills Lactulose 10 GM/15ML Oral Solution (Constu* 0 Sig: take 45 ml by mouth 3 times a day. Refused By: KOJO HINOJOSA Reason for Refusal: Managed by another physician * Telephone Encounter - Tamara Fabian LPN - 01/16/2023 9:11 AM EDTPending Prescriptions: Disp Refills Lactulose 10 GM/15ML Oral Solution [Pharma*1,200 *0 Sig: take 45 ml by mouth 3 times a day. * Telephone Encounter - Tamara Fabian LPN - 01/16/2023 9:10 AM EDT Pending Prescriptions: Disp Refills Lactulose 10 GM/15ML Oral Solution (Const* 0 Sig: take 45 ml by mouth 3 times a day. Last Visit: 12/26/2022 (in office), 09/17/2021 (telemedicine) Next Visit: Visit date not found Last date the medication was ordered: 10/28/2022 Patient Active Problem List Diagnosis Code Spinal stenosis of lumbar region without neurogenic claudication M48.061 Cerebral palsy (HCC) G80.9 HTN, goal below 130/80 I10 NG (nonalcoholic steatohepatitis) K75.81 Venous stasis dermatitis of both lower extremities I87.2 DDD (degenerative disc disease), lumbar M51.36 Lymphedema I89.0 Type 2 diabetes mellitus with hemoglobin A1c goal of less than 8.0% ([facility]) E11.9 Vitamin D deficiency E55.9 Restrictive lung disease J98.4 Obesity, morbid (more than 100 lbs over ideal weight or BMI > 40) ([facility]) E66.01 Dyslipidemia E78.5 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 R39.81 Acquired hypothyroidism E03.9 Chronic pain syndrome G89.4 MEDICATION USE AGREEMENT [id number] Cirrhosis of liver (HCC) K74.60 THAD on CPAP G47.33, Z99.89 Wheelchair dependent Z99.3 DM type 2 with diabetic peripheral neuropathy ([facility]) E11.42 Primary insomnia F51.01 Impaired mobility and ADLs Z74.09, Z78.9 Gastroesophageal reflux disease K21.9 Fibromyalgia M79.7 Iron deficiency anemia due to chronic blood loss D50.0 Esophageal varices ([facility]) I85.00 Portal hypertensive gastropathy (HCC) K76.6, K31.89 Chronic diastolic (congestive) heart failure (HCC) I50.32 Pancytopenia ([facility]) D61.818 Major depressive disorder, recurrent, moderate (HCC) F33.1 Generalized anxiety disorder F41.1 Hypertensive heart failure (HCC) I11.0 Labs: Lab Results Component Value Date/Time CREATININE - [facility] 0.6 12/06/2022 02:08 PM CREATININE - [facility] 0.6 09/24/2020 05:16 [...] Value Date/Time LDL CHOLESTEROL (CALCULATED) - [facility] 46 09/14/2021 [...] - [facility] 9.9 (H) 04/28/2020 04:37 PM * Telephone Encounter - Sowmya Poon - 01/15/2023 4:53 PM EDTPending Prescriptions: Disp Refills Lactulose 10 GM/15ML Oral Solution [Pharma*1,200 *0 Sig: take 45 ml by mouth 3 times a day. documented in this encounter Plan of Treatment Upcoming Encounters Date Type Specialty Care Team Description 01/23/2023 Home Visit [facility] Aleyda Campos PA-C [address] [place] [address] 01/25/2023 Hem/Onc Treatment Hematology Oncology [place], Chair [address] [facility] [address] [place] [address] 01/25/2023 Office Visit Pharmacy Pharmacist2, [facility] [address] [facility] [place] [address] 02/09/2023 Home Visit [facility] July Poe, RN [address] [place] [address] 03/01/2023 PulmDiagnostic Pulmonary Function West, Pft [address] [place] [address] 03/08/2023 Office Visit Gastroenterology Lyssa Stout, ZAK [address] [place] [address] 06/27/2023 Office Visit Hematology Oncology Tono Sanchez MD [address] 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 No Code Status History Code Status Date Activated Date Inactivated Comments Full Code 12/27/2021 2:50 PM 12/27/2021 8:02 PM This order reflects the patients wishes and were consensually agreed upon. Question Answer Comments Discussion of Advance Directives occurred with: Not Discussed Does the patient have a Living Will? No Does the patient have Health Care Power of E Commerce Manager? No Full Code 03/31/2021 8:57 PM [...] on File Name Relationship [facility] Communication Syed Bustos Spouse Emergency Contact Care Teams Label Coder Relationship Specialty Start Date End Date Kojo Hinojosa MD [address] [place] [address] PCP - General Family Medicine 03/16/21 documented as of this encounter
--- OUTSIDE RECORDS SUMMARY | 2023-05-10 16:51 | External Medical Summary | Summary of Care ---
Author Name Unknown Organization [facility] Address [address] [facility] [facility] [place] [address] Phone [phone] Care Team Providers Care Bridge Saw Operator Name Role Phone Vanita Dunn MD Primary Care Provid er Encounter Details Date Type Department Care Team Description 01/23/2023 Home Visit [facility] [address] [place] [id number] Aleyda Campos PA-C [address] [place] [address] SOB (shortness of breath)*; Chronic diastolic (congestive) heart failure (HCC); THAD on CPAP; Iron deficiency anemia due to chronic blood loss; NG (nonalcoholic steatohepatitis); Type 2 diabetes mellitus with hemoglobin A1c goal of less than 8.0% (HCC); Other cirrhosis of liver (HCC); Gastroesophageal reflux disease with esophagitis without hemorrhage; Portal hypertensive gastropathy (HCC); Other cerebral palsy (HCC); Impaired mobility and ADLs; Generalized anxiety disorder; Major depressive disorder, recurrent, moderate (HCC); Restrictive lung disease; Advanced care planning/counseling discussion Allergies Active Allergy Reactions Severity Noted Date Comments Adhesive Tape Itching 04/29/2020 Penicillins Rash 02/12/2008 Penicillin G 07/20/2018 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 documented as of this encounter (statuses as of 01/24/2023) Medications Medication Sig Dispensed Refills Start Date End Date Status nystatin (NYSTOP) 850749 UNIT/GM powder Apply topically to affected area 3 times a day. 60 g 1 0 Active Dexcom G6 [employer] Secretary Device Use as directed. To test blood sugars 4 times a day Dx E11.9 1 Each 0 1 Active Dexcom G6 Transmitter Use as directed. To test blood sugars 4 times a day. Change every 90 days. Dx E11.9 1 Each 3 1 Active OneTouch Verio In Vitro Strip (Glucose Blood) TESTING once daily 100 Strip 3 1 Active OneTouch Delica Plus [id number] TESTING once daily 100 Each 3 1 [...] ([facility]) inject 4.5mg (1 pen) under [...] than 7.0% ([facility]) USE TO INJECT INSULIN FOUR [...] than 8.0% ([facility]) 35 Units at breakfast, 39 Units before [...] ns: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,Other cerebral palsy ([facility]) TAKE 1 TABLET BY MOUTH [...] at bedtime 45 mL 3 3 Active Lantus SoloStar 100 UNIT/ML [...] current situation. 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 if a pecan sheller plan is made -continue lexapro Generalized weakness [...] pain 01/24/2012 01/17/2017 Genetic Sleep Disorder Research Other*[id number] 05/13/2011 04/07/2016 Obstructive sleep apnea 01/18/2011 12/27/19 [...] (Prevnar) 05/02/2019 Pneumococcal Conjugate Vacci ne, 20-valent ([id number]) 10/21/2022 Pneumococcal Polysaccharide PPV23 (Pneumovax) 06/01/2010 Seasonal [...] Sign Reading Time Taken Comments Blood Pressure 112/62 01/24/2023 2:50 PM EDT Pulse 68 01/24/2023 2:50 PM EDT Temperature 36.2 C (97.2 F) 01/24/2023 2:50 PM ED T Respiratory Rate 18 01/24/2023 2:50 PM EDT Oxygen Saturation 98% 01/24/2023 2:50 PM EDT Inhaled Oxygen Concentration - - [...] as of this encounter Progress Notes * Aleyda Campos PA-C - 01/24/2023 3:13 PM EDT Images from the original note were not included. [facility] Problem Oriented Charting Provider Visit Date: 01/24/2023 Time: 2:36 PM [facility] Sub-Program: Focused Care Management (3-9 months) [facility] Episode Start Date: Noted: 09/16/2021 Assessment and Plan Additional Medical Decision Making: Shaina reports SOB this AM. Wheezing on exam, but O2 stable. Nebs today. F/u pcp tmrw. Will likely graduate if stable next visit Scheduled appointments in the next 60 days: Future Appointments-next 60 days Date/Time Provider Specialty Dept Phone 01/25/2023 1:30 PM Chair 11 Hem Onc [facility] Hematology Oncology [phone] 01/25/2023 2:00 PM [facility] Pharmacist2 Pharmacy [phone] 02/09/2023 8:30 AM July Poe RN [facility] [phone] 03/01/2023 1:00 PM [facility] Pul[facility] Function [phone] 03/08/2023 1:30 PM (Arrive by 1:15 PM) [facility] [phone] 06/27/2023 1:45 PM (Arrive by 1:30 PM) Tono Sanchez MD Hematology Oncology [phone] 07/31/2023 1:20 PM (Arrive by 1:05 PM) Vanita Dunn MD Family Medicine [phone] 10/04/2023 4:00 PM (Arrive by 3:45 PM) Renetta Martinez MD Gynecology Obstetrics [phone] A total of 28 minutes was spent face to face (via video-based telemedicine if designated as a telemedicine visit) Subjective Subjective Is this a Telemedicine Visit? Yes, Patient location: HOME. I was not in a hospital or clinic location. After connecting through televideo, patient was verified with two unique identifiers. Patient (or authorized legal players club representative) was then informed that this was a Telemedicine visit and being conducted confidentially over secure lines. Methods to assure confidentiality were taken. Patient acknowledged consent and understanding of privacy and security of the Telemedicine visit. The patient agreed to participate. Reason For [facility] Visit: Follow-Up Current Concerns: Shaina Bustos is a 67 year old female seen today for a [facility] provider visit. Today's concerns: Breathing. Patient reports shortness of breath that is worse than usual this morning. She denies any fever. Patient and patient's , Brice, report occasional cough. There has been no reported choking on food. Has not been using nebulizer treatments. Encouraged to do so every 6 hours. Chest x-ray ordered. Patient does have a follow-up appointment scheduled for tomorrow with her primary care physician. Cirrhosis. Patient reports being compliant with lactulose 30 mL twice daily. Occasionally, Brice willgive her an additional dose. They are reluctant to give her anymore than this as it results in diarrhea. Bowel movements have been soft. No nausea reported. Diabetes. Blood sugars last week were running very high. The patient ran out of Novalact. Now thatshe got a dose few days ago, blood sugars have been better running in the 150s. No lows reported. The patient and the patient's are unsure of how much NovoLog the patient is getting. He reports recently changing her Lantus to 60 units in the evening. Encouraged to take entire med list and al l insulin to family doctor appointment tomorrow for a thorough med wound care evaluation as there seems to be confusion Urinary incontinence. Pure homero never came. Too expensive. Just using chucks. No burning Additional Review of Systems All other systems reviewed and are negative. Objective Objective Vitals: 01/24/23 1450 Temp: 36.2 C (97.2 F) Pulse: 68 Resp: 18 SpO2: 98% BP: 112/62 Last Weights: Wt Readings from Last 3 Encounters: 01/24/23 113.4 kg (250 lb) 12/09/22 113.4 kg (250 lb) 10/13/22 113.4 kg (250 lb) Last BPs: BP Readings from Last 4 Encounters: 01/24/23 122/70 01/24/23 112/62 01/17/23 110/70 01/11/23 108/60 Physical Exam Constitutional: Comments: Obese. Chronically ill in appearance. HENT: Head: Normocephalic. Mouth/Throat: Mouth: Mucous membranes are moist. Eyes: Extraocular Movements: Extraocular movements intact. Cardiovascular: Rate and Rhythm: Normal rate and regular rhythm. Heart sounds: No murmur heard. Pulmonary: Comments: Diffuse wheezing throughout. No crackles or rhonchi. Musculoskeletal: Cervical back: Neck supple. Comments: Plus one nonpitting edema noted to the lower extremities bilaterally. Brawny in appearance bilaterally. No erythema or warmth appreciated. Small area of erythema noted on the right 3rd toe. Skin: General: Skin is warm and dry. Neurological: Comments: Answering questions appropriately. Psychiatric: Mood and Affect: Mood normal. Lab Review: I have reviewed the following results: BMP results Recent Labs Units 12/06/22 1408 08/30/22 1552 05/19/22 1449 SODIUM - [facility] mmol/L 144 139 143 POTASSIUM - [facility] mmol/L 4.6 4.6 4.0 CHLORIDE - [facility] mmol/L 112* 106 111* CO2 - [facility] mmol/L 23 CREATININE - [facility] mg/dL 0.6 0.6 0.8 BUN - [facility] mg/dL 12 18 CBC results Recent Labs Units 01/04/23 1337 12/14/22 1528 11/23/22 1412 WBC AUTO - [facility] K/uL 4.56 3.65* 3.80* HGB - [facility] g/dL 10.3* 10.7* 10.3* HCT - [facility] % 32.3* 34.3* 32.1* PLATELET AUTO - [facility] K/uL 97* 66* 65* HbA1c results Recent Labs Units 12/06/22 1408 05/19/22 1449 01/24/22 0834 HEMOGLOBIN A1C - [facility] % 6.0* 7.4* 6.9* Vitamin D results No results for input(s): 25OHVITAMIND in the last 09625 hours. Hepatic panel results Recent Labs Units 12/06/22 1408 08/30/22 1552 04/28/22 1421 PROTEIN - [facility] g/dL 6.1 6.3 6.5 BILIRUBIN, TOTAL - [facility] mg/dL 1.7* 1.8* 1.4* ALKALINE PHOSPHATASE - [facility] U/L 103 106 127 AST - [facility] U/L 37* 113* 51* ALT - [facility] U/L 32 65* 30 Protein/cr ratio results No results for input(s): PROCRRATIO in the last 81154 hours. Medication Review "Bottles Out" medication review performed today and medication list in EMR updated Mobility Evaluation: MAHC10 Assessment: Assistive Devices Used in the Home: Powered Wheelchair or Scooter Aleyda Campos PA-C 2:36 PM *Communication sent to PCP (via [facility]ofax if [facility]), [facility] Care Team members,relevant Specialty Care Physicians* * Aleyda Campos PA-C - 01/24/2023 2:36 PM EDT Images from the original note were not included. [facility] Problem Oriented Charting Provider Visit Date: 01/24/2023 Time: 2:36 PM [facility] Sub-Program: Focused Care Management (3-9 months) [facility] Episode Start Date: Noted: 09/16/2021 Assessment and Plan Additional Medical Decision Making: Shaina reports SOB this AM. Wheezing on exam, but O2 stable. Nebs today. F/u pcp tmrw. Will likely graduate if stable next visit Scheduled appointments in the next 60 days: Future Appointments-next 60 days Date/Time Provider Specialty Dept Phone 01/25/2023 1:30 PM Chair 11 Hem Onc [facility] Hematology Oncology [phone] 01/25/2023 2:00 PM [facility] Pharmacist2 Pharmacy [phone] 02/09/2023 8:30 AM July Poe RN [facility] [phone] 03/01/2023 1:00 PM [facility] [phone] 03/08/2023 1:30 PM (Arrive by 1:15 PM) [facility] [phone] 06/27/2023 1:45 PM (Arrive by 1:30 PM) Tono Sanchez MD Hematology Oncology [phone] 07/31/2023 1:20 PM (Arrive by 1:05 PM) Vanita Dunn MD Family Medicine [phone] 10/04/2023 4:00 PM (Arrive by 3:45 PM) Renetta Martinez MD Gynecology Obstetrics [phone] A total of 28 minutes was spent face to face (via video-based telemedicine if designated as a telemedicine visit) Subjective Subjective Is this a Telemedicine Visit? Yes, Patient location: HOME. I was not in a hospital or clinic location. After connecting through televideo, patient was verified with two unique identifiers. Patient (or authorized legal players club representative) was then informed that this was a Telemedicine visit and being conducted confidentially over secure lines. Methods to assure confidentiality were taken. Patient acknowledged consent and understanding of privacy and security of the Telemedicine visit. The patient agreed to participate. Reason For [facility] Visit: Follow-Up Current Concerns: Shaina Bustos is a 67 year old female seen today for a [facility] provider visit. Today's concerns: Breathing. Patient reports shortness of breath that is worse than usual this morning. She denies any fever. Patient and patient's , Brice, report occasional cough. There has been no reported choking on food. Has not been using nebulizer treatments. Encouraged to do so every 6 hours. Chest x-ray ordered. Patient does have a follow-up appointment scheduled for tomorrow with her primary care physician. Cirrhosis. Patient reports being compliant with lactulose 30 mL twice daily. Occasionally, Brice willgive her an additional dose. They are reluctant to give her anymore than this as it results in diarrhea. Bowel movements have been soft. No nausea reported. Diabetes. Blood sugars last week were running very high. The patient ran out of Trulicity. Now thatshe got a dose few days ago, blood sugars have been better running in the 150s. No lows reported. The patient and the patient's are unsure of how much NovoLog the patient is getting. He reports recently changing her Lantus to 60 units in the evening. Encouraged to take entire med list and al l insulin to family doctor appointment tomorrow for a thorough med wound care evaluation as there seems to be confusion Urinary incontinence. Pure homero never came. Too expensive. Just using chucks. No burning Additional Review of Systems All other systems reviewed and are negative. Objective Objective Vitals: 01/24/23 1450 Temp: 36.2 C (97.2 F) Pulse: 68 Resp: 18 SpO2: 98% BP: 112/62 Last Weights: Wt Readings from Last 3 Encounters: 01/24/23 113.4 kg (250 lb) 12/09/22 113.4 kg (250 lb) 10/13/22 113.4 kg (250 lb) Last BPs: BP Readings from Last 4 Encounters: 01/24/23 122/70 01/24/23 112/62 01/17/23 110/70 01/11/23 108/60 Physical Exam Constitutional: Comments: Obese. Chronically ill in appearance. HENT: Head: Normocephalic. Mouth/Throat: Mouth: Mucous membranes are moist. Eyes: Extraocular Movements: Extraocular movements intact. Cardiovascular: Rate and Rhythm: Normal rate and regular rhythm. Heart sounds: No murmur heard. Pulmonary: Comments: Diffuse wheezing throughout. No crackles or rhonchi. Musculoskeletal: Cervical back: Neck supple. Comments: Plus one nonpitting edema noted to the lower extremities bilaterally. Brawny in appearance bilaterally. No erythema or warmth appreciated. Small area of erythema noted on the right 3rd toe. Skin: General: Skin is warm and dry. Neurological: Comments: Answering questions appropriately. Psychiatric: Mood and Affect: Mood normal. Lab Review: I have reviewed the following results: BMP results Recent Labs Units 12/06/22 1408 08/30/22 1552 05/19/22 1449 SODIUM - [facility] mmol/L 144 139 143 POTASSIUM - [facility] mmol/L 4.6 4.6 4.0 CHLORIDE - [facility] mmol/L 112* 106 111* CO2 - [facility] mmol/L 25 23 CREATININE - [facility] mg/dL 0.6 0.6 0.8 BUN - [facility] mg/dL 12 17 18 CBC results Recent Labs Units 01/04/23 1337 12/14/22 1528 11/23/22 1412 WBC AUTO - [facility] K/uL 4.56 3.65* 3.80* HGB - [facility] g/dL 10.3* 10.7* 10.3* HCT - [facility] % 32.3* 34.3* 32.1* PLATELET AUTO - [facility] K/uL 97* 66* 65* HbA1c results Recent Labs Units 12/06/22 1408 05/19/22 1449 01/24/22 0834 HEMOGLOBIN A1C - [facility] % 6.0* 7.4* 6.9* Vitamin D results No results for input(s): 25OHVITAMIND in the last 58742 hours. Hepatic panel results Recent Labs Units 12/06/22 1408 08/30/22 1552 04/28/22 1421 PROTEIN - [facility] g/dL 6.1 6.3 6.5 BILIRUBIN, TOTAL - [facility] mg/dL 1.7* 1.8* 1.4* ALKALINE PHOSPHATASE - [facility] U/L 103 106 127 AST - [facility] U/L 37* 113* 51* ALT - [facility] U/L 32 65* 30 Protein/cr ratio results No results for input(s): PROCRRATIO in the last 43589 hours. Medication Review "Bottles Out" medication review performed today and medication list in EMR updated Mobility Evaluation: MAHC10 Assessment: Assistive Devices Used in the Home: Powered Wheelchair or Scooter Aleyda Campos PA-C 2:36 PM *Communication sent to PCP (via [employer] if non-[facility]), [facility] Care Team members,relevant Specialty Care Physicians* documented in this encounter Miscellaneous Notes * ACP (Advance Care Planning) - Aleyda Campos PA-C - 01/24/2023 3:05 PM EDT Patient-centered Communication 01/24/2023 The patient/surrogate voluntarily agreed to participate in advance care planning discussion. They were advised that this is a separate service which may incur out of pocket cost in the form of copayment and/or deductibles. Location: Home Individual(s) present for conversation: Patient and Spouse Decisions Contains data within 01/24/2023 to 01/24/2023 and each row's most recent data. Newer data is on the left. Synopsis SmartLink Most Recent Value Past ~10 years 01/24/2023 15:06 Decisions CPR decision: Patient chooses CPR 01/24/2023 Patient chooses CPR Intubation/Mechanical Ventilation decision: Patient chooses Intubation/mechanical ventilation 01/24/2023 Patient chooses Intubation/mechanical ventilation Non-invasive ventilation or BIPAP decision: Patient chooses non-invasive ventilation. Select interventions below 01/24/2023 Patient chooses non-invasive ventilation. Select interventions below Non-Invasive Ventilation Interventions: Oxygen only;CPAP;BIPAP;NIV 10/04/2022 Antibiotic therapy decision: Patient chooses Antibiotic therapy 01/24/2023 Patient chooses Antibiotic therapy Artificial nutrition decision: Patient chooses Artificial nutrition 01/24/2023 Patient chooses Artificial nutrition IV hydration decision: Patient chooses IV hydration 01/24/2023 Patient chooses IV hydration Chemotherapy decision: Patient chooses Chemotherapy 10/04/2022 Radiation therapy decision: Patient chooses Radiation therapy 10/04/2022 Surgical procedure(s) decision: Patient chooses Surgical procedure 10/04/2022 Blood transfusion decision: Patient chooses Blood transfusion 01/24/2023 Patient chooses Blood transfusion Lab draw decision: Patient chooses Lab draws 01/24/2023 Patient chooses Lab draws Transport decision: Patient chooses Transport 10/04/2022 Dying at home decision: Patient chooses Dying at home 10/04/2022 Dialysis decision: Patient chooses Dialysis 10/04/2022 Additional Comments Discerning What Matters Most to the Patient: Contains data within 10/21/2021 to 10/21/2021 and each row's most recent data. Newer data is on the left. Synopsis SmartLink Most Recent Value Past ~10 years 10/21/2021 08:48 Discerning What Matters Most to the Patient In their own words, patient's UNDERSTANDING of their illness is: I don't understand where the bloodis coming from - most of the problem is my liver 10/21/2021 I don't understand where the blood is coming from - most of the problem is my liver Their current SYMPTOMS include: Lack of appetite;Shortnes of breath;Depression;Reduced overall wellbeing 10/21/2021 Lack of appetite;Shortnes of breath;Depression;Reduced overall well being They say their illness has CHANGED THEIR LIFE by: Feel like a burden to family/loved ones 10/21/2021 Feel like a burden to family/loved ones The patient thinks COMPLICATIONS in the future may be: Prefers information regarding prognosis 10/21/2021 Prefers information regarding prognosis Was PROGNOSIS discussed? No 10/21/2021 No Prognosis was not discussed due to: Other, please comment 10/21/2021 Other, please comment The patient's HOPES are: Avoid the skilled nursing 10/21/2021 Avoid the skilled nursing The patient defines LIVING WELL as: stay out of skilled nursing 10/21/2021 stay out of skilled nursing The patient's FEARS/WORRIES about illness are: Going to a skilled nursing 10/21/2021 Going to a skilled nursing The patient considers these as 'UNACCEPTABLE OUTCOMES': Prolonged skilled nursing stay (define below) 10/21/2021 Prolonged skilled nursing stay (define below) Prolonged skilled nursing stay, patient defines as: I won't come home 10/21/2021 I won't come home The patient's cultural or spiritual BELIEFS that may affect health care decisions: no 10/21/2021 no Source: Content from [employer] Program Aligning Care With What Matters Most: Contains data within 01/24/2023 to 01/24/2023 and each row's most recent data. Newer data is on the left. Synopsis FORVM Most Recent Value Past ~10 years 01/24/2023 15:06 Aligning Care With What Matters Most Interventions/Choices: CPR;Intubation/mechanical ventilation;Antibiotic therapy;Artificial nutrition;IV hydration;Blood transfusion;Lab draws;Non- invasive ventilation or BIPAP 01/24/2023 CPR;Intubation/mechanical ventilation;Antibiotic therapy;Artificial nutrition;IV hydration;Blood transfusion;Lab draws;Non-invasive ventilation or BIPAP Rationale for Decisions Contains data within 10/21/2021 to 10/21/2021 and each row's most recent data. Newer data is on the left. Synopsis FORVM Most Recent Value Past ~10 years 10/21/2021 08:56 CPR They describe the benefits and burdens of CPR treatment as: to keep going 10/21/2021 to keep going Their goals for CPR treatment are: to keep going 10/21/2021 to keep going Source: Content from [employer] Program 10 minutes spent in direct [id number] discussion today, Aleyda Campos PA-C * Assessment & Plan Note - Aleyda Campos PA-C - 01/24/2023 3:04 PM EDT Associated Problem(s): Restrictive lung disease Breathing worse today. Oxygen stable. -continue Advair. Was only using once per day. Encouraged to use twice per day. Also encouraged to use nebulizers every 6 hours today. Patient patient's in agreement. * Assessment & Plan Note - Aleyda Campos PA-C - 01/24/2023 3:03 PM EDT Associated Problem(s): Major depressive disorder, recurrent, moderate (HCC) Stable on Lexapro * Assessment & Plan Note - Aleyda Campos PA-C - 01/24/2023 3:02 PM EDT Associated Problem(s): Gastroesophageal reflux disease Continue pantoprazole * Assessment & Plan Note - Aleyda Campos PA-C - 01/24/2023 2:57 PM EDT Associated Problem(s): Type 2 diabetes mellitus with hemoglobin A1c goal of less than 8.0% (HCC) Current Status: "Stable" for patient / At [...] u at lunch, 45 u at dinner. * Assessment & Plan Note - Aleyda Campos PA-C - 01/24/2023 2:56 PM EDT Associated Problem(s): NG (nonalcoholic steatohepatitis) Only taking lactulose twice daily. Encouraged to take as prescribed. * Assessment & Plan Note - Aleyda Campos PA-C - 01/24/2023 2:55 PM EDT Associated Problem(s): Iron deficiency anemia due to chronic blood loss Last hemoglobin stable at 10.3 on 01/04/2023 * Assessment & Plan Note - Aleyda Campos PA-C - 01/24/2023 2:55 PM EDT Associated Problem(s): THAD on CPAP Compliant with CPAP * Assessment & Plan Note - Aleyda Campos PA-C - 01/24/2023 2:51 PM EDT Associated Problem(s): Chronic diastolic (congestive) heart failure (HCC) Current Status: "Stable" for patient / At [...] PCP as she is seeing patient tomorrow. documented in this encounter Plan of Treatment Upcoming Encounters Date Type Specialty Care Team Description 01/25/2023 Hem/Onc Treatment Hematology Oncology [place], Chair [address] [address] 01/25/2023 [facility] [address] [facility] [address] 02/09/[facility]23 Home Visit [facility] July Poe RN [address] [place] [address] 03/01/2023 PulmDiagnostic Pulmonary Function [place], [facility] [address] [phone] 03/08/2023 Office Visit Gastroenterology Lyssa Stout CRNP [address] [place] [phone] 06/27/2023 [facility] [address] [facility] [address] 07/31[facility]2023 [facility] [address] 10/04/2023 Office Visit Gynecology Obstetrics Renetta Martinez MD [address] [place] [address] Scheduled Orders Name Type Priority Associated Diagnoses Orde r Schedule XR CHEST 2 VIEWS Medical Imaging STAT SOB (shortness of breath) Ordered: 01/24/2023 Scheduled Procedures Name Priority Associated Diagnoses Date/Ti [...] this encounter Medical Devices Implanted Type Area Digital Marketing Lead Device Identifier Shelf Expiration Date Model / Serial / Lot [employer] Sure Clip Implanted:Qty: 2 on 06/03/2020 by Janis Hatch DO at OR [facility] Clip N/A: Colon 04/21/2022 [id number] 35-C-[id number] / / [id number] documented as of this encounter Visit Diagnoses Diagnosis SOB (shortness of breath)- Primary Shortness of breath Chronic diastolic (congestive) heart failure (HCC) THAD on CPAP Obstructive sleep apnea (adult) (pediatric) 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 (chronic) NG (nonalcoholic steatohepatitis) Other chronic nonalcoholic liver disease Type 2 diabetes mellitus with hemoglobin A1c goal of less than 8.0% (HCC) Other cirrhosis of liver (HCC) Gastroesophageal reflux disease with esophagitis without hemorrhage Portal hypertensive gastropathy (HCC) Other specified disorder of stomach and duodenum Other cerebral palsy (HCC) Impaired mobility and ADLs Mechanical problems with limbs Generalized anxiety disorder Major depressive disorder, recurrent, moderate (HCC) Major depressive disorder, recurrent episode, moderate Restrictive lung disease Other diseases of lung, not elsewhere classified Advanced care planning/counseling discussion Other specified counseling documented in this encounter Advance Directives Documents on File Type Date Recorded Patient Stockroom Supervisor Expl anation Advance Directives and Living Will 04/29/2021 ADVANCE DIRECTIVE / LIVING WILL LIVING WILL AND HEALTH CARE POA Power of Beam Dyer Recessed Vat 04/29/2021 [facility]OWER [facility] A [facility] [...] the patient have Health Care Power of Beam Dyer Recessed Vat? No Code Status History Code Status Date Activated Date Inactivated Comments Full Code 12/27/2021 2:50 PM 12/27/2021 8:02 PM This order reflects the patients wishes and were consensually agreed upon. Question Answer Comments Discussion of Advance Directives occurred with: Not Discussed Does the patient have a Living Will? No Does the patient have Health Care Power of Beam Dyer Recessed Vat? No Full Code 03/31/2021 8:57 PM 04/03/2021 [...] Agents on File Name Relationship Healthcare Agent Romainnv p Communication Syed Bustos Spouse Emergency Contact Care Teams Bridge Saw Operator Relationship Specialty Start Date End Date Vanita Dunn MD [address] [place] [address] PCP - General Family Medicine 03/16/21 documented as of this encounter
--- OUTSIDE RECORDS SUMMARY | 2023-05-10 16:52 | External Medical Summary | Summary of Care ---
Author Name Unknown Organization [facility] Address [address] [facility] [place] [address] Phone [phone] Care Team Providers Care Typer Name Role Phone Kojo Dunn MD Primary Care Provid er Reason for Visit * Reason Comments eRx-Medication Refill Encounter Details Date Type Department Care Team Description 12/31/2022 Refill [facility] [address] [place] [address] Kojo Dunn MD [address] [place] [address] Hypokalemia Allergies Active Allergy Reactions Severity Noted Date Comments Adhesive Tape Itching 04/29/2020 Penicillins Rash 02/12/2008 Penicillin G 07/20/2018 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 documented as of this encounter (statuses as of 01/01/2023) Medications Medication Sig Dispensed Refills Start Date End Date Status nystatin (NYSTOP) 423779 UNIT/GM powder Apply topically to affected area 3 times a day. 60 g 1 10/16/19 20 Active Dexcom G6 Log Washer Device Use as directed. To test blood [...] 3 10/29/19 21 Active OneTouch Delica Plus [id number] TESTING once daily 100 Each 3 10/29/19 [...] Apply to wound 85 g 07/06/20 Active Nadolol 40 MG Oral Tablet [...] bedtime. 360 Tablet 1 10/18/19 23 Active Lactulose 10 GM/15ML Oral Solution (Constulose) TAKE 30G (45ML) BY MOUTH 3 TIMES DAILY 1200 mL 0 10/28/19 23 Active Gabapentin 300 MG Oral Capsule [...] DAILY 30 Tablet 5 12/04/19 23 Active Macrobid 100 MG Oral Capsule Take 1 Capsule by mouth in the morning and 1 Capsule before bedtime. With food until gone. 10 Capsule 0 12/05/19 23 Active Additional Information Patient not taking.Reported on 12/09/2022 Cetirizine HCl 10 MG Oral Tablet (ZyrTEC) Take 0.5 Tablets by mouth in the morning. 30 Tablet 2 12/10/19 Active Benzonatate 200 MG Oral CapsuleIndications :Bronchitis, complicated Take 1 Capsule by mouth 3 times a day as needed for Cough. 30 Capsule 1 12/13/19 Active Fluconazole 100 MG Oral Tablet (Diflucan) Take 1 Tablet by mouth in the morning for 21 days. two tablets on first day, then one tablet once a day for 3 weeks.. 22 Tablet 0 12/14/19 23 023 Active Linzess 290 MCG Oral Capsule (linaCLOtide) TAKE 1 CAPSULE BY MOUTH once DAILY before breakfast 90 Capsule 3 12/24/19 23 Active Potassium Chloride ER 10 MEQ Oral Tablet Extended ReleaseIndications :Hypokalemia Take by mouth 1 tablet in the morning with food. 90 Tablet 3 01/02/20 Active Potassium Chloride ER 10 MEQ Oral Tablet Extended ReleaseIndications :Hypokalemia Take by mouth 1 Tablet in the morning. With food.. 90 Tablet 3 12/22/19 22 023 Discontinued Hospital, Clinic, or Other Facility [...] as of this encounter (statuses as of 01/01/2023) Active Problems Problem Noted Date Hypertensive heart [...] as of this encounter (statuses as of 01/01/2023) Resolved Problems Problem Noted Date Resolved Date [...] pain 01/24/2012 01/17/2017 Genetic Sleep Disorder Research Other*[id number] 05/13/2011 04/07/2016 Obstructive sleep apnea 01/18/2011 12/27/19 [...] as of this encounter (statuses as of 01/01/2023) Immunizations Name Administration Dates Next Due COVID-19 mRNA, LNP-s, No Pre serve, 2-Dose Series (Moderna) 01/05/2022,07/26/2021,12/21/2020,11/09 HEP A - Hepatitis A (Adult > 18 yrs) 09/24/2018, 03/26/2018 Hepatitis B, 20+ yrs 09/24/2018,04/23/2018,03/26 Pneumococcal Conjugate Vacc, 13 Valent (Prevnar) 05/02/2019 Pneumococcal Conjugate Vacci ne, 20-valent ([id number]) 10/21/2022 Pneumococcal Polysaccharide PPV23 (Pneumovax) 06/01/2010 Seasonal [...] encounter Miscellaneous Notes * Telephone Encounter - Lurdes Zavala RPh - 01/01/2023 12:27 PM EDTSigned Prescriptions: Disp Refills Potassium Chloride ER 10 MEQ Oral Tablet E*90 Tab*3 Sig: Take by mouth 1 tablet in the morning with food.Authorizing Provider: KOJO DUNN User: LURDES ZAVALA documented in this encounter Plan of Treatment Upcoming Encounters Date Type Specialty Care Team Description 01/04/2023 Hem/Onc Treatment Hematology Oncology [place], Chair [address] [place], [place] [address] 01/04/2023 Office Visit Pharmacy Pharmacist1, [facility] [address] [facility], [place] [address] 01/11/2023 [facility] Visit [facility] July Poe, RN [address] [place] [address] 01/23/2023 Home Visit [facility] Aleyda Campos PA-C [address] [place] [address] 01/25/2023 Hem/Onc Treatment Hematology Oncology [place], Chair 11 Hem Onc [facility] [address] [facility], [place] [address] 03/01/2023 PulmDiagnostic Pulmonary Function [place], [address] [place] [address] 03/01/2023 Office Visit Pulmonary Vivian Phillips CRNP [address] [place] [address] 03/08/2023 Office Visit Gastroenterology Lyssa Stout CRNP [address] [place] [address] 06/27/2023 Office Visit Hematology Oncology Tono Sanchez MD [address] [facility], [place] [address] Scheduled Procedures Name Priority Associated Diagnoses Date/Ti [...] encounter Medical Devices Implanted Type Area Digital Pre Press Operator Device Identifier Shelf Expiration Date Model / Serial / Lot Microtech Sure Clip Implanted:Qty: 2 on 06/03/2020 by Janis Hatch DO at OR [facility] Clip N/A: Colon 04/21/2022 [facility]-F-26-2 35-C-R / / [id number] documented as of this encounter Visit Diagnoses Diagnosis Hypokalemia Hypopotassemia documented in this encounter Advance Directives Documents on File Type Date Recorded Patient Assistant Account Executive Expl anation Advance Directives and Living Will 04/29/2021 ADVANCE DIRECTIVE / LIVING WILL LIVING WILL AND HEALTH CARE POA Power of Shift Stacker 04/29/2021 [facility]OWER [facility] [...] the patient have Health Care Power of Shift Stacker? No Code Status History Code Status Date Activated Date Inactivated Comments Full Code 12/27/2021 2:50 PM 12/27/2021 8:02 PM This order reflects the patients wishes and were consensually agreed upon. Question Answer Comments Discussion of Advance Directives occurred with: Not Discussed Does the patient have a Living Will? No Does the patient have Health Care Power of Shift Stacker? No Full Code 03/31/2021 8:57 PM 04/03/2021 [...] Agents on File Name Relationship Healthcare Agent [facility] p Communication Syed Bustos Spouse Emergency Contact Care Teams Typer Relationship Specialty Start Date End Date Kojo Dunn MD [address], [place] [id number] PCP - General Family Medicine 03/16/21 documented as of this encounter
--- OUTSIDE RECORDS SUMMARY | 2023-05-10 16:52 | External Medical Summary | Summary of Care ---
Author Name Unknown Organization [facility] Address [address] [facility] [place] [address] Phone [phone] Care Team Providers Care Vocational Auto Body Instructor Name Role Phone Vanita Dunn MD Primary Care Provid er Reason for Visit * Reason Onset Date Comments FYI 01/04/2023 Encounter Details Date Type Department Care Team Description 01/04/2023 Telephone [facility] [address] [place] [address] Vanita Dunn MD [address] [place] [address] FYI Allergies Active Allergy Reactions Severity Noted Date Comments Adhesive Tape Itching 04/29/2020 Penicillins Rash 02/12/2008 Penicillin G 07/20/2018 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 documented as of this encounter (statuses as of 01/04/2023) Medications Medication Sig Dispensed Refills Start Date End Date Status nystatin (NYSTOP) 100281 UNIT/GM powder Apply topically to affected area 3 times a day. 60 g 1 10/16/2019 Active Dexcom G6 Yard Specialist Device Use as directed. To test blood sugars 4 times a day Dx E11.9 1 Each 0 09/14/2020 Active Dexcom G6 Transmitter Use as directed. To test blood sugars 4 times a day. Change every 90 days. Dx E11.9 1 Each 3 09/14/2020 Active OneTouch Verio In Vitro Strip (Glucose Blood) TESTING once daily 100 Strip 3 10/29/2020 Active OneTouch Delica Plus [id number] TESTING once daily 100 Each 3 10/29/2020 [...] ONCE DAILY 68 Cap 0 05/29/2021 Active Additional Information Patient not taking.Reported on [...] goal of less than 8.0% ([facility]) 35 Units at breakfast, 39 [...] extremity swelling 90 Tablet 3 09/09/2022 Active Lantus SoloStar 100 UNIT/ML Subcutaneous Solution Pen-injectorIndicat ions:Type 2 diabetes mellitus with hemoglobin A1c goal of less than 8.0% (HCC) Inject 27 units subcutaneously at bedtime and 27 units subcutaneously in the morning. 45 mL 3 10/13/2022 Active Pantoprazole Sodium 20 MG Oral Tablet Delayed Release (Protonix)Indicatio ns:NAFLD (nonalcoholic fatty liver disease),Other cirrhosis of liver (HCC) Take 2 Tablets by mouth in the morning and 2 Tablets before bedtime. 360 Tablet 1 10/18/2022 Active Lactulose 10 GM/15ML Oral Solution (Constulose) TAKE 30G (45ML) BY MOUTH 3 TIMES DAILY 1200 mL 0 10/28/2022 Active Gabapentin 300 MG Oral Capsule (Neurontin)Indicati [...] MOUTH DAILY 30 Tablet 5 12/03/2022 Active Macrobid 100 MG Oral Capsule Take 1 Capsule by mouth in the morning and 1 Capsule before bedtime. With food until gone. 10 Capsule 0 12/04/2022 Active Additional Information Patient not taking.Reported on [...] with food. 90 Tablet 3 01/01/2023 Active Hospital, Clinic, or Other Facility Administered [...] as of this encounter (statuses as of 01/04/2023) Active Problems Problem Noted Date Hypertensive heart [...] as of this encounter (statuses as of 01/04/2023) Resolved Problems Problem Noted Date Resolved Date [...] pain 01/24/2012 01/17/2017 Genetic Sleep Disorder Research Other*[id number] 05/13/2011 04/07/2016 Obstructive sleep apnea 01/18/2011 12/27/19 [...] as of this encounter (statuses as of 01/04/2023) Immunizations Name Administration Dates Next Due COVID-19 mRNA, LNP-s, No Pre serve, 2-Dose Series (Moderna) 01/05/2022,07/26/2021,12/21/2020,03/1 01/2021 HEP A - Hepatitis A (Adult > 18 yrs) 09/24/2018, 03/26/2018 Hepatitis B, 20+ yrs 09/24/2018,04/23/2018,03/26 Pneumococcal Conjugate Vacc, 13 Valent (Prevnar) 05/02/2019 Pneumococcal Conjugate Vacci ne, 20-valent ([id number]) 10/21/2022 Pneumococcal Polysaccharide PPV23 (Pneumovax) 06/01/2010 Seasonal [...] Miscellaneous Notes * Telephone Encounter - THAD Jones - 01/04/2023 11:08 AM EDT [facility] for Home care Delivered. I sent request to Suzie. documented in this encounter Plan of Treatment Upcoming Encounters Date Type Specialty Care Team Description 01/04/2023 Hem/Onc Treatment Hematology Oncology Mary[place], Chair 11 Hem Onc Sc[address] [place] [address] 01/04/2023 Office Visit Pharmacy Pharmacist1, [facility] [address] [place] [address] 01/11/2023 Home Visit [facility] July Poe RN [address] [place] [address] 01/23/2023 Home Visit [facility] Aleyda Campos PA-C [address] [place] [address] 01/25/2023 Hem/Onc Treatment Hematology Oncology [place], Chair 11 Hem On[address] [place] [address] 03/01/2023 PulmDiagnostic Pulmonary Function [place], [address] [place] [address] 03/01/2023 Office Visit Pulmonary Vivian Phillips CRNP [address] [place] [address] 03/08/2023 Office Visit Gastroenterology Lyssa Stout CRNP [address] [place] [address] 06/27/2023 Office Visit Hematology Oncology Tono Sanchez MD 200 [place] [address] Scheduled Procedures Name Priority Associated Diagnoses Date/Ti [...] 02/03/2017, Additional history exists HgA1C 06/08/2023 12/06/2022, 09/04/2022, 01/24/2022, Additional history exists TSH FOR THYROID [...] this encounter Medical Devices Implanted Type Area Doll Wig Hackler Device Identifier Shelf Expiration Date Model / Serial / Lot Microtech Sure Clip Implanted:Qty: 2 on 06/03/2020 by Janis Hatch DO at OR [facility] Clip N/A: Colon 04/21/2022 [facility]-F-26-2 35-C-R / / [id number] documented as of this encounter Advance Directives Documents on File Type Date Recorded Patient Regional Account Executive Expl anation Advance Directives and Living Will 04/29/2021 ADVANCE DIRECTIVE / LIVING WILL LIVING WILL AND HEALTH CARE POA Power of Biology Adjunct Instructor 04/29/2021 POWER [facility] A [facility] [...] the patient have Health Care Power of Biology Adjunct Instructor? No Code Status History Code Status Date Activated Date Inactivated Comments Full Code 12/27/2021 2:50 PM 12/27/2021 8:02 PM This order reflects the patients wishes and were consensually agreed upon. Question Answer Comments Discussion of Advance Directives occurred with: Not Discussed Does the patient have a Living Will? No Does the patient have Health Care Power of Biology Adjunct Instructor? No Full Code 03/31/2021 8:57 PM 04/03/2021 [...] Agents on File Name Relationship Healthcare Agent [facility] p Communication Syed Bustos Spouse Emergency Contact Care Teams Vocational Auto Body Instructor Relationship Specialty Start Date End Date Vanita Dunn MD [address] [place] [facility] [place] [address] PCP - General Family Medicine 03/16/21 documented as of this encounter
--- OUTSIDE RECORDS SUMMARY | 2023-05-10 16:52 | External Medical Summary ---
Author Name Unknown Address Unknown Organization [facility] [place] [address] Laboratory Report Ordering Provider Test Date Status JACOB CORBETT 01/04/2023 13:37:15 Final Observation Date Value Abnormality Reference (Units ) Status WBC, Total 01/04/2023 13:37:15 4.56 4.00-10.8 0 (K/uL) Final RBC 01/04/2023 13:37:15 2.75 3.85-5.15 (M/uL) Final Hemoglobin 01/04/2023 13:37:15 10.3 Below low normal 12 .0-15.3 (g/dL) Final HCT 01/04/2023 13:37:15 32.3 Below low normal 36. 0-45.2 (%) Final MCV 01/04/2023 13:37:15 117.5 81.5-97.5 (fL) Final MCH 01/04/2023 13:37:15 37.5 27.0-34.0 (pg) Final MCHC 01/04/2023 13:37:15 31.9 32.0-36.0 (g/dL) Final RDW 01/04/2023 13:37:15 17.0 11.5-15.5 (%) Final Platelets 01/04/2023 13:37:15 97 Below low normal 140 -400 (K/uL) Final MPV 01/04/2023 13:37:15 12.6 6.6-11.1 ( fL) Final Performing Location [facility] [place] [place] [address]
--- OUTSIDE RECORDS SUMMARY | 2023-05-10 16:52 | External Medical Summary | Summary of Care ---
Author Name Unknown Organization [facility] Address [address] [facility] [place] [address] Phone [phone] Care Team Providers Care Senior Qa Tester Name Role Phone Vanita Dunn MD Primary Care Provid er Reason for Visit * Reason Onset Date Comments Fax 12/29/2022 Encounter Details Date Type Department Care Team Description 12/29/[address] [facility] [address] [place] [address] Vanita Dunn MD [address] [place] [address] Fax Allergies Active Allergy Reactions Severity Noted Date Comments Adhesive Tape Itching 04/29/2020 Penicillins Rash 02/12/2008 Penicillin G 07/20/2018 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 documented as of this encounter (statuses as of 01/02/2023) Medications Medication Sig Dispensed Refills Start Date End Date Status nystatin (NYSTOP) 134264 UNIT/GM powder Apply topically to affected area 3 times a day. 60 g 1 10/16/19 20 Active Dexcom G6 Registrar Assistant Device Use as directed. To test blood [...] 3 10/29/19 21 Active OneTouch Delica Plus [id number] TESTING once daily 100 Each 3 10/29/19 [...] TABLET BY MOUTH DAILY 90 Tablet 0 11/24/20 22 Active Furosemide 20 MG Oral Tablet [...] Cough. 30 Capsule 1 12/13/19 23 Active Fluconazole 100 MG Oral Tablet (Diflucan) [...] as of this encounter (statuses as of 01/02/2023) Active Problems Problem Noted Date Hypertensive heart [...] as of this encounter (statuses as of 01/02/2023) Resolved Problems Problem Noted Date Resolved Date [...] current situation. 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 if a regulator operator plan is made -continue lexapro Generalized [...] pain 01/24/2012 01/17/2017 Genetic Sleep Disorder Research Other*[id number] 05/13/2011 04/07/2016 Obstructive sleep apnea 01/18/2011 12/27/19 [...] as of this encounter (statuses as of 01/02/2023) Immunizations Name Administration Dates Next Due COVID-19 mRNA, LNP-s, No Pre serve, 2-Dose Series (Moderna) 01/05/2022,07/26/2021,12/21/2020,11/09 HEP A - Hepatitis A (Adult > 18 yrs) 09/24/2018, 03/26/2018 Hepatitis B, 20+ yrs 09/24/2018,04/23/2018,03/26 Pneumococcal Conjugate Vacc, 13 Valent (Prevnar) 05/02/2019 Pneumococcal Conjugate Vacci ne, 20-valent ([id number]) 10/21/2022 Pneumococcal Polysaccharide PPV23 (Pneumovax) 06/01/2010 Seasonal [...] Telephone Encounter - Vanita Dunn MD - 01/02/2023 5:29 PM EDT Form signed and submitted to nursing for processing. * Telephone Encounter - Michaelle Lindquist LPN - 12/29/2022 2:53 PM EDT Placed on PCP desk for review and completion. * Telephone Encounter - THAD Page - 12/29/2022 9:16 AM EDT Received. Home Care notified. 12/29/2022 * Telephone Encounter - THAD Bruner - 12/29/2022 8:54 AM EDT Received a call asking if fax was received by office. Name/Company sending fax: [facility] What fax is pertaining to: Incontinence supplies order form Date(s) they sent request: 12/26/2022 Verified fax number they are sending to is correct (Y or N): Yes Callback Number for the clinic to call to verified if fax was received: [phone] documented in this encounter Plan of Treatment Upcoming Encounters Date Type Specialty Care Team Description 01/04/2023 Hem/Onc Treatment Hematology Oncology Maryellen, Chair 11 Hem Onc Scenery [address] [facility] [place] [address] 01/04/2023 Office Visit Pharmacy Pharmacist1, [facility] [address] [place] [address] 01/11/2023 Home Visit [facility] July Poe RN [address] [place] [address] 01/23/2023 [facility] Visit [facility] Aleyda Campos PA-C [address] [place] [address] 01/25/2023 Hem/Onc Treatment Hematology Oncology [place], Chair 11 Hem Onc [address] [place] [address] 03/01/2023 PulmDiagnostic Pulmonary Function [place], [address] [place] [address] 03/01/2023 Office Visit Pulmonary Vivian Phillips CRNP [address] [place] [address] 03/08/2023 Office Visit Gastroenterology Lyssa Stout CRNP [address] [place] [address] 06/27/2023 Office Visit Hematology Oncology Tono Sanchez MD [address] [place] [address] Scheduled Procedures Name Priority Associated Diagnoses Date/Ti [...] this encounter Medical Devices Implanted Type Area Envelope Stamping Machine Operator Device Identifier Shelf Expiration Date Model / Serial / Lot Microtech Sure Clip Implanted:Qty: 2 on 06/03/2020 by Janis Hatch DO at OR [facility] Clip N/A: Colon 04/21/2022 [facility]-R / / [id number] documented as of this encounter Advance Directives Documents on File Type Date Recorded Patient Barytes Grinder Expl anation Advance Directives and Living Will 04/29/2021 ADVANCE DIRECTIVE / LIVING WILL LIVING WILL AND HEALTH CARE POA Power of Lacquer Pin Press Operator 04/29/2021 POWER [facility] A [facility] [...] the patient have Health Care Power of Lacquer Pin Press Operator? No Code Status History Code Status Date Activated Date Inactivated Comments Full Code 12/27/2021 2:50 PM 12/27/2021 8:02 PM This order reflects the patients wishes and were consensually agreed upon. Question Answer Comments Discussion of Advance Directives occurred with: Not Discussed Does the patient have a Living Will? No Does the patient have Health Care Power of Lacquer Pin Press Operator? No Full Code 03/31/2021 8:57 PM [...] Agents on File Name Relationship [facility] Syed Bustos Spouse Emergency Contact Care Teams Senior Qa Tester Relationship Specialty Start Date End Date Vanita Dunn MD [address] [place] [address] PCP - General Family Medicine 03/16/21 documented as of this encounter
--- OUTSIDE RECORDS SUMMARY | 2023-05-10 16:52 | External Medical Summary ---
Author Name Unknown Address Unknown Organization [facility] [place] [address] Laboratory Report Ordering Provider Test Date Status JACOB CORBETT 01/04/2023 13:37:15 Final Observation Date Value Abnormality Reference (Units ) Status Nucleated erythrocytes/100 leukocytes [Ratio] in Blood by Automated count 01/04/2023 13:37:15 Final Performing Location [facility] [place] [address]
--- OUTSIDE RECORDS SUMMARY | 2023-05-10 16:52 | External Medical Summary ---
Author Name Unknown Address Unknown Organization [facility] [address] [address] Laboratory Report Ordering Provider Test Date Status JACOB CORBETT 01/04/2023 13:37:15 Final Observation Date Value Abnormality Reference (Units ) Status SYNC LEUKOCYTES IN BLOOD BY AUTOMATED COUNT 01/04/2023 13:37:15 4.56 4.00-10.80 (K/uL) Final Segs 01/04/2023 13:37:15 63.6 40.0-75.0 (%) Final Lymphs % 01/04/2023 13:37:15 14.0 Below low normal 18.0-42.0 (%) Final Monos 01/04/2023 13:37:15 14.0 Above high normal 1.0-11.0 (%) Final Eosinophils 01/04/2023 13:37:15 7.7 Above high normal 0.0-6.0 (%) Final Basos 01/04/2023 13:37:15 0.7 0.0-2.0 (%) Final Absolute Segs 01/04/2023 13:37:15 2.90 1.80-7.70 (K/uL) Final Lymphs, absolute 01/04/2023 13:37:15 0.64 Below low normal 1.00-4.80 (K/ul) Final Monos, Abs 01/04/2023 13:37:15 0.64 0.00-1.10 (K/uL) Final Eos, Abs 01/04/2023 13:37:15 0.35 0.00-0.70 (K/uL) Final Basos, Abs 01/04/2023 13:37:15 0.03 0.00-0.20 (K/uL) Final Performing Location [facility] [address] [address]
--- OUTSIDE RECORDS SUMMARY | 2023-05-10 16:52 | External Medical Summary | Summary of Care ---
Author Name Unknown Organization [facility] Address [address] [facility] [place] [address] Phone [phone] Care Team Providers Care [employer] Dean Name Role Phone Vanita Dunn MD Primary Care Provid er Reason for Visit * Reason Onset Date Comments [facility]: Maintenance 01/11/2023 Encounter Details Date Type Department Care Team Description 01/11/2023 Telephone [facility], [facility] [address] [place] [address] July Poe, RN [address] [place] [address] [facility]: Maintenance Allergies Active Allergy Reactions Severity Noted Date Comments Adhesive Tape Itching 04/29/2020 Penicillins Rash 02/12/2008 Penicillin G 07/20/2018 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 documented as of this encounter (statuses as of 01/11/2023) Medications Medication Sig Dispensed Refills Start Date End Date Status nystatin (NYSTOP) 364137 UNIT/GM powder Apply topically to affected area 3 times a day. 60 g 1 10/16/2019 Active Dexcom G6 Sales Forecast Analyst Device Use as directed. To test blood sugars 4 times a day Dx E11.9 1 Each 0 09/14/2020 Active Dexcom G6 Transmitter Use as directed. To test blood sugars 4 times a day. Change every 90 days. Dx E11.9 1 Each 3 09/14/2020 Active OneTouch Verio In Vitro Strip (Glucose Blood) TESTING once daily 100 Strip 3 10/29/2020 Active OneTouch Delica Plus [id number] TESTING once daily 100 Each 3 10/29/2020 [...] as of this encounter (statuses as of 01/11/2023) Active Problems Problem Noted Date Hypertensive heart [...] as of this encounter (statuses as of 01/11/2023) Resolved Problems Problem Noted Date Resolved Date [...] pain 01/24/2012 01/17/2017 Genetic Sleep Disorder Research Other*[id number] 05/13/2011 04/07/2016 Obstructive sleep apnea 01/18/2011 12/27/19 [...] as of this encounter (statuses as of 01/11/2023) Immunizations Name Administration Dates Next Due COVID-19 mRNA, LNP-s, No Pre serve, 2-Dose Series (Moderna) 01/05/2022,07/26/2021,12/21/2020,11/09 HEP A - Hepatitis A (Adult > 18 yrs) 09/24/2018, 03/26/2018 Hepatitis B, 20+ yrs 09/24/2018,04/23/2018,03/26 Pneumococcal Conjugate Vacc, 13 Valent (Prevnar) 05/02/2019 Pneumococcal Conjugate Vacci ne, 20-valent ([id number]) 10/21/2022 Pneumococcal Polysaccharide PPV23 (Pneumovax) 06/01/2010 Seasonal [...] encounter Miscellaneous Notes * Telephone Encounter - Shantal Keys LPN - 01/11/2023 1:00 PM EDT Call placed to [employer] regarding pure wick system Spoke with Zelda Stovall [facility] could not bill insurance due to change in patients insurancefrom September 2022 Patient will need to pay out of pocket and contact [employer] at [phone] for payment information. Call placed to patient to make her aware states she does not want to pay out of pocket for same Advised to call if she changed her mind FYI to care team * Telephone Encounter - July Poe RN - 01/11/2023 11:07 AM EDT Please call [employer] and check status of Pure Wick system. Order is from 12/07. Pt has not received it yet - was told they would have to pay out of pocket but then someone from [facility] to recheck on that and call back. Has not heard anything since. Thank you! documented in this encounter Plan of Treatment Upcoming Encounters Date Type Specialty Care Team Description 01/23/2023 Home Visit [facility] Aleyda Campos PA-C [address] [place] [address] 01/25/2023 Hem/Onc Treatment [facility] [place], Chair 11 Hem Onc [address] [place] [address] 01/25/2023 Office Visit Pharmacy Pharmacist2, [facility] [address] [place] [address] 02/09/2023 Home Visit [facility] July Poe, UMA [address] [place] [address] 03/01/2023 PulmDiagnostic Pulmonary Function [place], Pft [address] [place] [address] 03/01/2023 Office Visit Pulmonary Vivian Phillips CRNP [address] [place] [address] 03/08/2023 Office Visit Gastroenterology Lyssa Stout CRNP [address] [place] [address] 06/27/2023 Office Visit Hematology Oncology Tono Sanchez MD [address] [place] [address] Scheduled Procedures Name Priority Associated Diagnoses Date/Ti [...] this encounter Medical Devices Implanted Type Area Lens Examiner Device Identifier Shelf Expiration Date Model / Serial / Lot Microtech Sure Clip Implanted:Qty: 2 on 06/03/2020 by Janis Hatch DO at OR [facility] Clip N/A: Colon 04/21/2022 [facility]-F-26-2 35-C-R / / [id number] documented as of this encounter Advance Directives Documents on File Type Date Recorded Patient Radio Station Engineer Expl anation Advance Directives and Living Will 04/29/2021 ADVANCE DIRECTIVE / LIVING WILL LIVING WILL AND HEALTH CARE POA Power of Branch Service Associate 04/29/2021 POWER OF A [facility] [...] the patient have Health Care Power of Branch Service Associate? No Code Status History Code Status Date Activated Date Inactivated Comments Full Code 12/27/2021 2:50 PM 12/27/2021 8:02 PM This order reflects the patients wishes and were consensually agreed upon. Question Answer Comments Discussion of Advance Directives occurred with: Not Discussed Does the patient have a Living Will? No Does the patient have Health Care Power of Branch Service Associate? No Full Code 03/31/2021 8:57 PM [...] Agents on File Name Relationship Healthcare Agent [facility] p Communication Syed Bustos Spouse Emergency Contact Care Teams [employer] Dean Relationship Specialty Start Date End Date Vanita Dunn MD [address] [place] [address] PCP - General Family Medicine 03/16/21 documented as of this encounter
--- OUTSIDE RECORDS SUMMARY | 2023-05-10 16:52 | External Medical Summary | Summary of Care ---
Author Name Unknown Organization [facility] Address [address] [facility] [place] [address] Phone [phone] Care Team Providers Care Medicare Biller Name Role Phone Vanita Dunn MD Primary Care Provid er Reason for Visit * Reason Comments Diabetes Follow-Up Dosage Adjustment In Person (Anticoag Cl inic) Encounter Details Date Type Department Care Team Description 01/04/2023 Office Visit Pharmacy, [facility] [place] [address] [place] [place] [address] Pharmacist1, [facility] [address] [place] [address] Type 2 diabetes mellitus with hemoglobin A1c goal of less than 8.0% ([facility] [place])* Allergies Active Allergy Reactions Severity Noted Date Comments Adhesive Tape Itching 04/29/2020 Penicillins Rash 02/12/2008 Penicillin G 07/20/2018 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 documented as of this encounter (statuses as of 01/04/2023) Medications Medication Sig Dispensed Refills Start Date End Date Status nystatin (NYSTOP) 923593 UNIT/GM powder Apply topically to affected area 3 times a day. 60 g 1 10/16/2019 Active Dexcom G6 Bicycle Assembler Device Use as directed. To test blood sugars 4 times a day Dx E11.9 1 Each 0 09/14/2020 Active Dexcom G6 Transmitter Use as directed. To test blood sugars 4 times a day. Change every 90 days. Dx E11.9 1 Each 3 09/14/2020 Active OneTouch Verio In Vitro Strip (Glucose Blood) TESTING once daily 100 Strip 3 10/29/2020 Active OneTouch Delica Plus [id number] TESTING once daily 100 Each 3 10/29/2020 [...] hemoglobin A1c goal of less than 8.0% ([facility]) 35 Units at breakfast, 39 Units [...] current situation. 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 if a diagram clerk plan is made -continue lexapro Generalized [...] pain 01/24/2012 01/17/2017 Genetic Sleep Disorder Research Other*[id number] 05/13/2011 04/07/2016 Obstructive sleep apnea 01/18/2011 12/27/19 [...] (Prevnar) 05/02/2019 Pneumococcal Conjugate Vacci ne, 20-valent ([id number]) 10/21/2022 Pneumococcal Polysaccharide PPV23 (Pneumovax) 06/01/2010 Seasonal [...] [facility] - 01/04/2023 1:00 PM EDT Images from the original note were not included. Medication Therapy [facility] - Diabetes Management Progress Note Shaina Bustos, identified by name and date of , is a 67 year old female being seen for diabetesmanagement/education. Patient presents for return diabetic visit. DIABETES: Current diabetic medications: INCREASE:Novolog, Inject 35 units before breakfast, 39units before lunch, [id number] beforesupper INCREASE:Lantus pen,62units daily Metformin ER 500mg daily Trulicity 4.5mg SQ weekly Medication Injection Site: Abdomen Lifestyle: Diet: unchanged History of Treatment Barriers: Lifestyle: wheelchair bound Therapy considerations: None Medication: Metformin IR:GM? Glucose Review/SMBG: Readings obtained from patient device Hypoglycemia: Does your blood sugar go below 70 mg/dL? Yes, a few times around breakfast and after lunch. BG per sensor was 64 when I downloaded reader today. Patient had minor hypo symptoms. She drank some iced tea w/sugar and BG was 75 and rising 15 minutes later. Hyperglycemia symptoms present: none Goal < 8 Recent Labs Units 12/06/22 1408 05/19/22 1449 01/24/22 0834 HEMOGLOBIN A[facility]C - [facility] % 6.0* 7.4* 6.9* Recent Labs Units [...] goal BP Readings from Last 3 Encounters: 12/26/22 118/58 12/26/22 114/70 12/16/22 116/64 Blood pressure at goal: yes HYPERLIPIDEMIA: Patient [...] hemoglobin A1c goal of less than 8.0% ([facility]) E11.9 BG Readings - Blood sugars uncontrolled. Rising after dinner. Medications - Reviewed current regimen, patient is adherent to regimen. stated he forgets to give insulin before the meal and will give it afterwards. Diet, Exercise, Lifestyle - No significant lifestyle changes since last visit. Discussed with patient today. Patient is agreeable to wear Dexcom CGM. Patient aware to contact clinic if any hypoglycemia before next visit. MEDICATION CHANGES: yes, see below; preferred pharmacy: [facility] Medications: INCREASE:Novolog, Inject 35 units before breakfast, 39units before lunch, [id number] beforesupper DECREASE:Lantus pen,60units daily Metformin ER 500mg daily Trulicity 4.5mg SQ weekly HEALTH MAINTENANCE INTERVENTIONS: Labs: Ordered & Scheduled: Vitamin B12 and Lipid Panel Immunizations: needs 3rd shingles and covid booster Foot Exam: needs completed Eye Exam: needs completed Annual Wellness Visit: N/A FOLLOW UP: Return to clinic in 3 weeks 01/25/2023 Jonas Atwood RPh, CDE Clinical Pharmacist - [facility] Medication [facility] 01/04/2023, 1:01 PM documented in this encounter Plan of Treatment Upcoming Encounters Date Type Specialty Care Team Description 01/11/2023 Home Visit [facility] July Poe RN [address] [address] 01/23/2023 Home Visit [facility] Aleyda Campos PA-C [address] [address] 01/25/2023 Hem/Onc Treatment Hematology Oncology [place], Chair 11 Hem Onc [facility] [address] [facility] [place] [address] 01/25/2023 Office Visit Pharmacy Pharmacist2, [facility] [address] [facility] [place] [address] 03/01/2023 PulmDiagnostic Pulmonary Function [place], Pft [address] [place] [address] 03/01/2023 Office Visit Pulmonary Vivian Phillips CRNP [address] [place] [address] 03/08/2023 Office Visit Gastroenterology Lyssa Stout CRNP [address] [place] [address] 06/27/2023 Office Visit Hematology Oncology Tono Sanchez MD [address] [place] [address] Scheduled Procedures Name Priority Associated Diagnoses Date/Ti [...] encounter Medical Devices Implanted Type Area Rn Cvicu Device Identifier Shelf Expiration Date Model / Serial / Lot Microtech Sure Clip Implanted:Qty: 2 on 06/03/2020 by Janis Hatch DO at OR [facility] Clip N/A: Colon 04/21/2022 [facility]-F-26-2 35-C-R / / [id number] documented as of this encounter Visit Diagnoses Diagnosis Type 2 diabetes mellitus with hemoglobin A1c goal of less than 8.0% (HCC)- Primary documented in this encounter Advance Directives Documents on File Type Date Recorded 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 No Code Status History Code Status Date Activated Date Inactivated Comments Full Code 12/27/2021 2:50 PM 12/27/2021 8:02 PM This order reflects the patients wishes and were consensually agreed upon. Question Answer Comments Discussion of Advance Directives occurred with: Not Discussed Does the patient have a Living Will? No Does the patient have Health Care Power of Group Account Director? No Full Code 03/31/2021 8:57 PM [...] Syed Bustos Spouse Emergency Contact Care Teams Medicare Biller Relationship Specialty Start Date End Date Vanita Dunn MD [address] [place] [address] PCP - General Family Medicine 03/16/21 documented as of this encounter
--- OUTSIDE RECORDS SUMMARY | 2023-05-10 16:52 | External Medical Summary | Summary of Care ---
Author Name Unknown Organization [facility] Address [address] [facility] [place] [address] Phone [phone] Care Team Providers Care Junior Net Developer Name Role Phone Vanita Dunn MD Primary Care Provid er Reason for Visit * Reason Comments IV Therapy Venofer Encounter Details Date Type Department Care Team Description 01/04/2023 Hem/Onc Treatment Hematology/Oncology Treatment, [place] [address] [place] [address] [place], Chair 11 Hem Onc [place] [address] [place] [id number] Iron deficiency anemia due to chronic blood loss* Allergies Active Allergy Reactions Severity Noted Date Comments Adhesive Tape Itching 04/29/2020 Penicillins Rash 02/12/2008 Penicillin G 07/20/2018 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 documented as of this encounter (statuses as of 01/04/2023) Medications Medication Sig Dispensed Refills Start Date End Date Status nystatin (NYSTOP) 485746 UNIT/GM powder Apply topically to affected area 3 times a day. 60 g 1 10/16/2019 Active Dexcom G6 Jewelry Technician Device Use as directed. To test blood sugars 4 times a day Dx E11.9 1 Each 0 09/14/2020 Active Dexcom G6 Transmitter Use as directed. To test blood sugars 4 times a day. Change every 90 days. Dx E11.9 1 Each 3 09/14/2020 Active OneTouch Verio In Vitro Strip (Glucose Blood) TESTING once daily 100 Strip 3 10/29/2020 Active OneTouch Delica Plus [id number] TESTING once daily 100 Each 3 10/29/2020 [...] hemoglobin A1c goal of less than 7.0% ([facility]) USE TO INJECT INSULIN FOUR TIMES DAILY. [...] hemoglobin A1c goal of less than 8.0% ([facility]) 35 Units at breakfast, 39 Units before [...] before breakfast 90 Capsule 3 12/23/2022 Active Hospital, Clinic, or Other Facility Administered [...] pain 01/24/2012 01/17/2017 Genetic Sleep Disorder Research Other*[id number] 05/13/2011 04/07/2016 Obstructive sleep apnea 01/18/2011 12/27/19 [...] (Prevnar) 05/02/2019 Pneumococcal Conjugate Vacci ne, 20-valent ([id number]) 10/21/2022 Pneumococcal Polysaccharide PPV23 (Pneumovax) 06/01/2010 Seasonal [...] Sign Reading Time Taken Comments Blood Pressure 122/75 01/04/2023 1:30 PM EDT Pulse 70 01/04/2023 1:30 PM EDT Temperature 36.3 C (97.3 F) 01/04/2023 1:30 PM ED T Respiratory Rate 18 01/04/2023 1:30 PM EDT Oxygen Saturation 94% 01/04/2023 1:30 PM EDT Inhaled Oxygen Concentration - - [...] Nursing Notes * Shelli Barakat RN - 01/04/2023 3:41 PM EDT Chair 3. Port accessed without difficulty. Patient feeling well today upon assessment, here today for Venofer infusion. Patient comfortable and denies further needs at this time. Safety and Risk for Injury Patient will remain free from injury. Ensure appropriate safety devices are available. Provide and maintain safe environment. Goals: Patient will remain free from injury. Possible barriers to meeting goals: ambulating with IV pole, use of scooter to get around Stability of the patient: Moderately stable - low risk of patient condition declining or worsening Summary regarding today's goals: Met: pt remained free of harm today Patient tolerated treatment well without any acute issues or problems. Patient left facility in stable condition and denied any further needs. documented in this encounter Plan of Treatment Upcoming Encounters Date Type Specialty Care Team Description 01/11/2023 [facility] Visit [facility]oe [facility] [address] [facility] [place] [address] 01/23/2023 Home Visit [facility] Aleyda Campos PA-C [address] [place] [address] 01/25/2023 Hem/Onc Treatment Hematology Oncology [place], Chair 11 Hem Onc [facility] [address] [place] [address] 01/25/2023 Office Visit Pharmacy Pharmacist2, [facility] [address] [facility], [place] [address] 03/01/2023 PulmDiagnostic Pulmonary Function [place], Pft [address] [facility] [place] [address] 03/01/2023 Office Visit Pulmonary [facility]ian Phillips CRNP [address] [facility] [place] [address] 03/08/2023 Office Visit Gastroenterology Lyssa Stout CRNP [address] [place] [address] 06/27/2023 Office Visit Hematology Oncology Tono Sanchez MD [address] [place] [address] Scheduled Procedures Name Priority Associated Diagnoses Date/Ti [...] encounter Medical Devices Implanted Type Area Hand Picker Device Identifier Shelf Expiration Date Model / Serial / Lot [employer] Sure Clip Implanted:Qty: 2 on 06/03/2020 by Janis Hatch DO at OR [facility] Clip N/A: Colon 04/21/2022 [facility]-F-26-2 35-C-R / / [id number] documented as of this encounter Procedures Procedure Name Priority Date/Time Associated Diagnosis Comments DIFFERENTIAL, AUTOMATED STAT 01/04/2023 1:37 PM EDT Iron deficiency anemia due to chronic blood loss CBC WITH WBC DIFFERENTIAL STAT 01/04/2023 1:37 PM EDT Iron deficiency anemia due to chronic blood loss CBC STAT 01/04/2023 1:37 PM EDT Iron deficiency anemia due to chronic blood loss DIFFERENTIAL, TECHNOLOGIST REVIEW Routine 01/04/2023 1:37 PM EDT Iron deficiency anemia due to chronic blood loss documented in this encounter Results * DIFFERENTIAL, TECHNOLOGIST REVIEW (01/04/2023 1:37 PM EDT) Pathologist [facility] nRBCs 01/04/2023 3:25 PM EDT [facility] 56- Blood Venous blood specimen / Unknown Central Line / Unknown 01/04/2023 1:37 PM EDT 01/04/2023 2:03 PM EDT Tono Sanchez MD LAB BLOOD ORDERABLES [facility] 56- [address] [place] [address] * (ABNORMAL) DIFFERENTIAL, AUTOMATED (01/04/2023 1:37 PM EDT) WBC 4.56 4.00 - 10.80 K/uL 01/04/2023 3:25 PM EDT [facility] 56- Neutrophils % 63.6 40.0 - 75.0 % 01/04/2023 3:25 PM EDT [facility] 56- Lymphocytes % 14.0(L) 18.0 - 42.0 % 01/04/2023 3:25 PM EDT [facility] 56- Monocytes % 14.0(H) 1.0 - 11.0 % 01/04/2023 3:25 PM EDT [facility] 56- Eosinophils % 7.7(H) 0.0 - 6.0 % 01/04/2023 3:25 PM EDT [facility] 56- Basophils % 0.7 0.0 - 2.0 % 01/04/2023 3:25 PM EDT [facility] 56- Absolute Neutrophils 2.90 1.80 - 7.70 K/uL 01/04/2023 3:25 PM EDT [facility] 56- Absolute Lymphocytes 0.64(L) 1.00 - 4.80 K/ul 01/04/2023 3:25 PM EDT [facility] 56- Absolute Monocytes 0.64 0.00 - 1.10 K/uL 01/04/2023 3:25 PM EDT [facility] 56- Absolute Eosinophils 0.35 0.00 - 0.70 K/uL 01/04/2023 3:25 PM EDT [facility] 56- Absolute Basophils 0.03 0.00 - 0.20 K/uL 01/04/2023 3:25 PM EDT [facility] 56 Blood Venous blood specimen / Unknown Central Line / Unknown 01/04/2023 1:37 PM EDT 01/04/2023 2:03 PM EDT Tono Sanchez MD LAB BLOOD ORDERABLES [facility] 56- [address] [place] [address] * (ABNORMAL) CBC (01/04/2023 1:37 PM EDT) [facility] WBC 4.56 4.00 - 10.80 K/uL 01/04/2023 3:25 PM EDT [facility] 56 RBC 2.75 3.85 - 5.15 M/uL 01/04/2023 3:25 PM EDT [facility] 56 HGB 10.3(L) 12.0 - 15.3 g/dL 01/04/2023 3:25 PM EDT [facility] 56 HCT 32.3(L) 36.0 - 45.2 % 01/04/2023 3:25 PM EDT [facility] 56 MCV 117.5 81.5 - 97.5 fL 01/04/2023 3:25 PM EDT [facility] 56 MCH 37.5 27.0 - 34.0 pg 01/04/2023 3:25 PM EDT [facility] 56 MCHC 31.9 32.0 - 36.0 g/dL 01/04/2023 3:25 PM EDT [facility] 56 RDW 17.0 11.5 - 15.5 % 01/04/2023 3:25 PM EDT [facility] PLT 97(L) 140 - 400 K/uL 01/04/2023 3:25 PM EDT [facility] 56 MPV 12.6 6.6 - 11.1 fL 01/04/2023 3:25 PM EDT [facility] 56 Blood Venous blood specimen / Unknown Central Line / Unknown 01/04/2023 1:37 PM EDT 01/04/2023 2:03 PM EDT Tono Sanchez MD LAB BLOOD ORDERABLES Performing Organization Address City/State/[facility] Co de Phone Number [facility] [address] [place], [place] [id number] documented in this encounter Visit Diagnoses Diagnosis [...] ONCE PRN Other, Hypersensitivity Reaction, Starting on Mon01/04/23 at 1355, Until [place] 01/05/23 at 1354, For 24 hours EPINEPHrine 1 MG/ML inj 0.3 mg 0.3 mg, Intramuscular, ONCE PRN Other, Hypersensitivity Reaction or Anaphylaxis, Starting on Mon01/04/23 at 1355, Until [place] 01/05/23 at 1354, For 24 hours hEParin 100 UNIT/ML Lock Flush inj 500 Units 500 Units (5 mL), IV Lock, PRN Other, IV Flush, Starting on Mon01/04/23 at 1355, Until [place] 01/05/23 at 1354, For 24 hours, Do not flush if lock, PICC, or central line not in place; IV infusing or unable to flush. Given 01/04/2023 3:23 PM EDT 500 Units Hydrocortisone Sod Suc (PF) (Solu-Cortef) inj 100 mg 100 mg, IV Push, ONCE PRN Other, Hypersensitivity Reaction, Starting on Mon01/04/23 at 1355, Until [place] 01/05/23 at 1354, For 24 hours NSS infusion 500 mL, Intravenous, at 50 mL/hr, CONTINUOUS, Starting on Mon01/04/23 at 1500, Until Mon01/05/23 at 0059 Start Infusion 01/04/2023 1:50 PM EDT 500 mL 50 mL/hr sodium chloride 0.9 % flush central line 10 mL 10 mL, IV Push, PRN Other, IV Flush, Starting on Mon01/04/23 at 1355, Until [place] 01/05/23 at 1354, For 24 hours, Do not flush if lock, PICC, or central line not in place; IV infusing or unable to flush. Given 01/04/2023 3:23 PM EDT 10 mL Inactive Administered Medications - up to 3 most recent administrations Medication Order MAR Action Action Date Dose Rate Site Iron Sucrose (Venofer) 300 mg in NSS 250 mL ivpb 300 mg, IV Piggyback, ONCE, 1 dose, On Mon01/04/23 at 1530, Administer over 90 Minutes Start Infusion 01/04/2023 1:50 PM EDT 300 mg 166.67 mL/hr documented in this encounter Advance Directives Documents on File Type Date Recorded Patient Rn Private Duty Expl anation Advance Directives and Living Will 04/29/2021 ADVANCE DIRECTIVE / LIVING WILL LIVING WILL AND HEALTH CARE POA Power of Milieu Technician 04/29/2021 [facility] [...] the patient have Health Care Power of Milieu Technician? No Code Status History Code Status Date Activated Date Inactivated Comments Full Code 12/27/2021 2:50 PM 12/27/2021 8:02 PM This order reflects the patients wishes and were consensually agreed upon. Question Answer Comments Discussion of Advance Directives occurred with: Not Discussed Does the patient have a Living Will? No Does the patient have Health Care Power of Milieu Technician? No Full Code 03/31/2021 8:57 PM [...] Agents on File Name Relationship [facility] Syed Bustos Spouse Emergency Contact Care Teams Junior Net Developer Relationship Specialty Start Date End Date Vanita Dunn MD [address] [place] [address] PCP - General Family Medicine 03/16/21 documented as of this encounter
--- OUTSIDE RECORDS SUMMARY | 2023-05-10 16:53 | External Medical Summary | Summary of Care ---
Author Name Unknown Organization [facility] Address [address] [facility] [address] Phone [phone] Care Team Providers Care Boardmarker Name Role Phone Vanita Dunn MD Primary Care Provid er Reason for Visit * Reason Comments Follow Up Encounter Details Date Type Department Care Team Description 12/26/2022 Office Visit [facility]ematology[facility]On[facility] [address] [facility] [id number] [facility]NP [address] [facility] [place] [phone] Pancytopenia (HCC)*; Splenomegaly; Iron deficiency anemia due to chronic blood loss Allergies Active Allergy Reactions Severity Noted Date Comments Adhesive Tape Itching 04/29/2020 Penicillins Rash 02/12/2008 Penicillin G 07/20/2018 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 documented as of this encounter (statuses as of 12/28/2022) Medications Medication Sig Dispensed Refills Start Date End Date Status nystatin (NYSTOP) 435448 UNIT/GM powder Apply topically to affected area 3 times a day. 60 g 1 10/16/2019 Active Dexcom G6 Promotions Team Leader Device Use as directed. To test blood sugars 4 times a day Dx E11.9 1 Each 0 09/14/2020 Active Dexcom G6 Transmitter Use as directed. To test blood sugars 4 times a day. Change every 90 days. Dx E11.9 1 Each 3 09/14/2020 Active Local.comTouch Verio In Vitro Strip (Glucose Blood) TESTING once daily 100 Strip 3 10/29/2020 Active Local.comTouch Delica Plus [id number] TESTING once daily 100 Each 3 10/29/2020 [...] as directed 60 Each 5 10/06/2021 Active Potassium Chloride ER 10 MEQ Oral Tablet Extended ReleaseIndications: Hypokalemia Take by mouth 1 Tablet in the morning. With food.. 90 Tablet 3 12/21/2021 Active Lidocaine-Prilocain e 2.5-2.5 % External Cream [...] for Cough. 30 Capsule 1 12/12/2022 Active Fluconazole 100 MG Oral Tablet (Diflucan) Take 1 Tablet by mouth in the morning for 21 days. two tablets on first day, then one tablet once a day for 3 weeks.. 22 Tablet 0 12/13/2022 01/04/20 23 Active Linzess 290 MCG Oral Capsule [...] as of this encounter (statuses as of 12/28/2022) Active Problems Problem Noted Date Hypertensive heart [...] as of this encounter (statuses as of 12/28/2022) Resolved Problems Problem Noted Date Resolved Date [...] pain 01/24/2012 01/17/2017 Genetic Sleep Disorder Research Other*[id number] 05/13/2011 04/07/2016 Obstructive sleep apnea 01/18/2011 12/27/19 [...] as of this encounter (statuses as of 12/28/2022) Immunizations Name Administration Dates Next Due COVID-19 mRNA, LNP-s, No Pre serve, 2-Dose Series (Moderna) 01/05/2022,07/26/2021,12/21/2020,11/09 HEP A - Hepatitis A (Adult > 18 yrs) 09/24/2018, 03/26/2018 Hepatitis B, 20+ yrs 09/24/2018,04/23/2018,03/26 Pneumococcal Conjugate Vacc, 13 Valent (Prevnar) 05/02/2019 Pneumococcal Conjugate Vacci ne, 20-valent ([id number]) 10/21/2022 Pneumococcal Polysaccharide PPV23 (Pneumovax) 06/01/2010 Seasonal [...] Sign Reading Time Taken Comments Blood Pressure 118/58 12/26/2022 4:01 PM EDT Pulse 70 12/26/2022 4:01 PM EDT Temperature 36.3 C (97.3 F) 12/26/2022 4:01 PM ED T Respiratory Rate 20 12/26/2022 4:01 PM EDT Oxygen Saturation 92% 12/26/2022 4:01 PM EDT Inhaled Oxygen Concentration - - [...] as of this encounter Progress Notes * Dinorah Teixeira LPN - 12/26/2022 4:01 PM EDT Patient identifed by name and birthdate Do you have any concerns about pain management for today's visit? No Living Will or Advance Directive for Health Care as noted on the problem list. [facility] is a way you can talk to your provider on line through e-mail. Would you like to sign up? I can activate it for you? Pending Filed Vitals: 12/26/22 1601 BP: 118/58 Pulse: 70 Resp: 20 Temp: 36.3 C (97.3 F) TempSrc: Tympanic SpO2: 92% * ZAK River - 12/26/2022 4:00 PM EDT Hematology/Oncology Outpatient Clinic note [facility] [address] [place] [address] Name: Shaina Bustos Date: 12/26/2022 CHIEF COMPLAINT: Shaina Bustos is a 67 year old female here today for f/u visit today. Patient of Dr. Tono Sanchez. From Patient chart confirmed with patient. From Dr. Tono Sanchez note 04/20/22. HEMATOLOGY/ONCOLOGY DIAGNOSIS: Pancytopenia related to underlying cirrhosis of liver and splenomegaly Iron deficiency anemia. Vaginal bleeding. Recently she had trell IUD placement CURRENT TREATMENT: Venofer 300mg IV every 3 weeks, no end date at this time (10/08/21 - ) DIAGNOSTIC WORKUP: She is referred to hematology for evaluation of the anemia. Dr. Sanchez has reviewed her medical records. He also reviewed her medical records from [facility]. She has underlying cirrhosis of liver, has evidence of iron deficiency for the last 1 year, Ferritin level was less than 10 earlier in December 2018, she was on oral iron replacement therapy once a day,lately increase to twice a day. She was admitted at [facility] in November 2019, she received 1 to PRBC at that time. She also had endoscopic evaluation, last upper GI endoscopy done on 11/27/2019Which showed nonbleeding grade 1 esophageal varices, portal hypertensive gastropathy, normal examined duodenum noted. OTHER IMPORTANT HISTORY: -she has underlying cerebral palsy, nowadays she ambulates with the help of the motorized scooter. -Diabetes mellitus, neuropathy -chronic bilateral leg edema, she is on diuretic treatment. -Post menopausal bleeding. Hysteroscopy, w/ bx, and polypectomy on 12/27/2021 - benign pathology HISTORY OF PRESENT ILLNESS: Shaina Bustos is a 67 year old female with a history as outlined above. Currently here for f/u visittoday. Patient here after appointment with PCP today. Having pain in her chest and just overall notfeeling well. Husbands says this happens when her ammonia levels get high. Is on lactulose but did not take it yet today d/t having multiple appointments. Does continue to have some minor vaginal blee ding but this has improved since IUD placement. Gets some mild rectal bleeding d/t hemorrhoids but this is not often. Past Medical History: Diagnosis Date Anemia Anxiety and depression Arthritis Aspiration pneumonia ([facility]) 11/01/2022 Cerebral palsy ([facility]) 01/24/2012 Chronic constipation Chronic diastolic (congestive) heart failure ([facility]) 09/13/2021 Chronic hypoxemic respiratory failure ([facility]) 04/08/2019 Chronic pain 03/27/2012 Cirrhosis of liver ([facility]) 11/20/2017 Constipation 05/02/2012 Noted in 2011 Historical DDD (degenerative disc disease), lumbar DM type 2, goal A1c below 7 Dyslipidemia Dyslipidemia, goal LDL below 70 Fibromyalgia GERD (gastroesophageal reflux disease) HTN (hypertension) Hypertensive heart disease with congestive heart failure ([facility]) 04/29/2022 More specified code listed on PL I13.0 Hypothyroidism Intermittent asthma with reliever use up to twice per week 01/09/2013 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 12/27/2010 Lymphedema 03/11/2013 MEDICATION USE AGREEMENT 03/27/2012 03/27/12 Myalgia and myositis 03/27/2012 NG (nonalcoholic steatohepatitis) 05/02/2012 Neuropathy Other specified infantile cerebral palsy Oxygen dependent 04/08/2019 Primary insomnia 04/04/2019 Recurrent major depressive disorder, in partial remission ([facility]) 04/04/2019 More recent Dx noted on PL Restrictive lung disease 12/2014 Sleep apnea CPAP Sleep apnea, obstructive Sleep disturbance 01/24/2012 Type 2 diabetes mellitus with hemoglobin A1c goal of less than 8.0% ([facility]) 09/26/2013 ICD-10 update of inactive term UTI (urinary tract infection) 01/27/2012 Noted in 2011 historical Venous insufficiency 01/09/2009 duplicate Past Surgical History: Procedure Laterality Date BONE DEBRIDEMENT, FIRST 20 CM2 Right 04/16/2020 DEBRIDEMENT SKIN SUBCUTANEOUS TISSUE MUSCLE AND BONE performed by Josh Vazquez MD at OR [facility] DELIVERY 04/20/1982 COLONOSCOPY 04/21/2009 repeat in 10 years COLONOSCOPY, DIAGNOSTIC (RECTUM) 10/04/2016 normal bx, repeat 10 yrs/[facility] COLONOSCOPY, DIAGNOSTIC (RECTUM) N/A 06/03/2020 internal hemorrhoids/biopsies show adenomatous polyps/recall 5 years/COLONOSCOPY FLEXIBLE PROXIMAL DIAGNOSTIC performed by Janis Hatch DO at OR [facility] COLONOSCOPY, DIAGNOSTIC (RECTUM) 03/17/2020 poor prep / [facility] DENTAL SURGERY PROCEDURE NEC wisdom teeth x 4 DILATION AND CURETTAGE (D&C) EGD, FLEXIBLE, DIAGNOSTIC 10/04/2016 gastritis/[facility] EGD, FLEXIBLE, DIAGNOSTIC 01/11/2018 eso varices, retained food, repeat 1 yr/[facility] EGD, FLEXIBLE, DIAGNOSTIC N/A 06/03/2020 severe erosive esophagitis/non-bleeding grade II esophageal varices/gastritis/biopsies show inflammatory changes/repeat 3-4 months/ESOPHAGOGASTRODUODENOSCOPY (EGD), FLEXIBLE, TRANSORAL, DIAGNOSTIC per formed by Janis Hatch DO at [facility] EGD, FLEXIBLE, DIAGNOSTIC 11/27/2019 eso varices, portal hypertensive gastropathy, gastritis / [facility] EGD, FLEXIBLE, DIAGNOSTIC N/A 08/05/2020 large amount of food in stomach/repeat 1.5 years/ESOPHAGOGASTRODUODENOSCOPY (EGD), FLEXIBLE, TRANSORAL, DIAGNOSTIC performed by Janis Hatch DO at OR [facility] EGD, FLEXIBLE, DIAGNOSTIC N/A 03/10/2021 ESOPHAGOGASTRODUODENOSCOPY (EGD), FLEXIBLE, TRANSORAL, DIAGNOSTIC performed by Kris Blankenship MD at ENDOSCOPY [facility] HYSTEROSCOPY W/BIOPSY AND/OR POLYPECTOMY W/WO D&C N/A 12/27/2021 HYSTEROSCOPY WITH BIOPSY AND/OR POLYPECTOMY WITH OR WITHOUT D&C performed by Concetta Khan MD at OR [facility] HYSTEROSCOPY W/BIOPSY AND/OR POLYPECTOMY W/WO D&C N/A 02/14/2022 HYSTEROSCOPY WITH BIOPSY AND/OR POLYPECTOMY WITH OR WITHOUT D&C performed by Concetta Khan MD at OR [facility] INSERT INTRAUTERINE DEVICE (IUD) N/A 02/14/2022 INSERTION OF INTRAUTERINE DEVICE performed by Concetta Khan MD at OR [facility] IR VENOUS ACCESS MEDIPORT 10/05/2020 PELVIS/HIP JOINT SURGERY NEC teenager aid in walking REMOVE CERVIX CONE W/LOOP ELECTRODE N/A 12/27/2021 LOOP ELECTROSURGERY EXCISION PROCEDURE performed by Concetta Khan MD at OR [facility] REPAIR/GRAFT ACHILLES TENDON age 40 aid in walking Social History Tobacco Use Smoking status: Never Smokeless tobacco: Never Vaping Use Vaping Use: Never used Substance and Sexual Activity Alcohol use: Not Currently Comment: rare Drug use: No Comment: too much soda Sexual activity: Not Currently Partners: Male Review of patient's allergies indicates: Allergen Reactions Adhesive Tape Itching Pcn [Penicillins] Rash Penicillin G Perflutren Protein A Microsph Definity-lower back pain Current Outpatient Medications Medication Sig Dispense Refill nystatin (NYSTOP) 875977 UNIT/GM powder Apply topically to affected area 3 times a day. 60 g 1 Dexcom G6 Promotions Team Leader Device Use as directed. To test blood sugars 4 times a day Dx E11.9 1 Each 0 Dexcom G6 Transmitter Use as directed. To test blood sugars 4 times a day. Change every 90 days. Dx E11.9 1 Each 3 OneTouch Verio In Vitro Strip (Glucose Blood) TESTING once daily 100 Strip 3 OneTouch Delica Plus [id number] TESTING once daily 100 Each 3 Nitroglycerin [...] TAKE 1 CAPSULE BY MOUTH ONCE DAILY (Patient not taking: Reported on 12/06/2022) 68 Cap 0 Fluticasone Propionate 50 MCG/ACT [...] X-Large Use as directed 60 Each 5 Potassium Chloride ER 10 MEQ Oral Tablet Extended Release Take by mouth 1 Tablet in the morning. With food.. 90 Tablet 3 Lidocaine-Prilocaine 2.5-2.5 % External [...] needed for lower extremityswelling 90 Tablet 3 Lantus SoloStar 100 UNIT/ML Subcutaneous Solution Pen-injector Inject 27 units subcutaneously at bedtime and 27 units subcutaneously in the morning. 45 mL 3 Pantoprazole Sodium 20 MG Oral Tablet Delayed Release (Protonix) Take 2 Tablets by mouth in themorning and 2 Tablets before bedtime. 360 Tablet 1 Lactulose 10 GM/15ML Oral Solution (Constulose) TAKE 30G (45ML) BY MOUTH 3 TIMES DAILY 1200 mL 0 Gabapentin 300 MG Oral Capsule (Neurontin) TAKE [...] TABLET BY MOUTH DAILY 30 Tablet 5 Macrobid 100 MG Oral Capsule Take 1 Capsule by mouth in the morning and 1 Capsule before bedtime. With food until gone. (Patient not taking: Reported on 12/09/2022) 10 Capsule 0 Cetirizine HCl 10 MG Oral Tablet (ZyrTEC) Take 0.5 Tablets by mouth in the morning. 30 Tablet 2 Benzonatate 200 MG Oral Capsule Take 1 Capsule by mouth 3 times a day as needed for Cough. 30 Capsule 1 Fluconazole 100 MG Oral Tablet (Diflucan) Take 1 Tablet by mouth in the morning for 21 days. two tablets on first day, then one tablet once a day for 3 weeks.. 22 Tablet 0 Linzess 290 MCG Oral Capsule (linaCLOtide) TAKE 1 CAPSULE BY MOUTH once DAILY before breakfast 90 Capsule 3 Current Facility-Administered Medications Medication Dose Route Frequency Provider Last Rate Last Admin Albuterol Sulfate (Proventil) (5 MG/ML) 0.5% *conc* inhalation solution 2.5 mg 2.5 mg NebulizerPRN ZAK Connolly Albuterol Sulfate (Proventil) (2.5 MG/3ML) 0.083% inhalation solution 2.5 mg 2.5 mg Nebulizer PRN ZAK Connolly REVIEW OF SYSTEMS: See HPI - otherwise negative OBJECTIVE: Filed Vitals: 12/26/22 1601 BP: 118/58 Pulse: 70 Resp: 20 Temp: 36.3 C (97.3 F) TempSrc: Tympanic SpO2: 92% Wt Readings from Last 5 Encounters: 12/09/22 113.4 kg (250 lb) 10/13/22 113.4 kg (250 lb) 08/12/22 113.4 kg (250 lb) 05/31/22 113.4 kg (250 lb) 03/03/22 113.4 kg (250 lb) PHYSICAL EXAM: General Appearance: +chronically ill Lymph Nodes: Normal - No palpable lymph nodes in the neck or supraclavicular areas Lungs/Thorax: Diminished with I+E wheezing throughout Heart: Regular rate and rhythm, normal S1, S2, +murmur Pulses/Extremities: +2 RLE edema with venous stasis changes Neurologic: alert and oriented x 4, in wheelchair today LABS: Results for orders placed or performed in visit on 12/14/22 FERRITIN Result Value Ref Range Ferritin 87 13 - 150 ng/mL CBC Result Value Ref Range WBC 3.65 (L) 4.00 - 10.80 K/uL RBC 2.89 3.85 - 5.15 M/uL HGB 10.7 (L) 12.0 - 15.3 g/dL HCT 34.3 (L) 36.0 - 45.2 % MCV 118.7 81.5 - 97.5 fL MCH 37.0 27.0 - 34.0 pg MCHC 31.2 32.0 - 36.0 g/dL RDW 17.6 11.5 - 15.5 % PLT 66 (L) 140 - 400 K/uL MPV nRBCs 0 <=0 /100 WBCs DIFFERENTIAL, AUTOMATED Result Value Ref Range WBC 3.65 (L) 4.00 - 10.80 K/uL Neutrophils % 59.7 40.0 - 75.0 % Lymphocytes % 18.1 18.0 - 42.0 % Monocytes % 12.3 (H) 1.0 - 11.0 % Eosinophils % 8.2 (H) 0.0 - 6.0 % Basophils % 1.4 0.0 - 2.0 % Immature Granulocytes % 0.3 0.0 - 2.0 % Absolute Neutrophils 2.18 1.80 - 7.70 K/uL Absolute Lymphocytes 0.66 (L) 1.00 - 4.80 K/ul Absolute Monocytes 0.45 0.00 - 1.10 K/uL Absolute Eosinophils 0.30 0.00 - 0.70 K/uL Absolute Basophils 0.05 0.00 - 0.20 K/uL Absolute Immature Granulocytes 0.01 0.00 - 0.20 K/uL *Note: Due to a large number of results and/or encounters for the requested time period, some results have not been displayed. A complete set of results can be found in Results Review. IMPRESSION/PLAN: Pancytopenia related to underlying cirrhosis of liver and splenomegaly Iron deficiency anemia d/t chronic blood loss Lab results reviewed: CBC showing stable pancytopenia Ferritin stable at 87 Will continue current treatment plan Maintenance IV Venofer 300 mg every three weeks Monitor cbc/diff and ferritin every six weeks Encouraged patient to schedule follow up with ACCESS REPRESENTATIVE regarding ongoing vaginal bleeding Follow up with all other specialist as recommended RTC in 6 months with physician with cbc/diff, cmp, iron screen and ferritin ZAK Valentino documented in this encounter Plan of Treatment Upcoming Encounters Date Type Specialty Care Team Description 01/04/2023 Hem/Onc Treatment Hematology Oncology [place], Chair 11 [facility] [address] [facility] [place] [address] 01/04/2023 Office Visit Pharmacy Pharmacist1, [facility] [address] [facility] [place] [address] 01/11/2023 Home Visit [facility] July Poe RN [address] [place] [address] 01/23/2023 [facility] Visit [facility] Aleyda Campos [facility]-C [address] [facility] [place] [address] 01/25/2023 Hem/Onc Treatment Hematology Oncology [place], Chair 11 Hem Onc [address] [place] [address] 03/01/2023 PulmDiagnostic Pulmonary Function [place], Pft [address] [place] [address] 03/01/2023 Office Visit Pulmonary Vivian Phillips CRNP [address] [place] [address] 03/08/2023 Office Visit Gastroenterology Lyssa Stout CRNP [address] [place] [address] 06/27/2023 Office Visit Hematology Oncology Tono Sanchez MD 200 [place] [address] Scheduled Orders Name Type Priority Associated Diagnoses Orde r Schedule COMPREHENSIVE METABOLIC PANEL Lab STAT Pancytopenia (HCC) Splenomegaly Iron deficiency anemia due to chronic blood loss Expected: 06/27/2023 (Approximate), Expires: 12/27/2023 IRON SCREEN, INCLUDING TIBC Lab STAT Pancytopenia (HCC) Splenomegaly Iron deficiency anemia due to chronic blood loss Expected: 06/27/2023 (Approximate), Expires: 12/27/2023 Scheduled Procedures Name Priority Associated Diagnoses Date/Ti [...] this encounter Medical Devices Implanted Type Area Glass Embosser Device Identifier Shelf Expiration Date Model / Serial / Lot Microtech Sure Clip Implanted:Qty: 2 on 06/03/2020 by Janis Hatch DO at OR [facility] Clip N/A: Colon 04/21/2022 [facility]-F-26-2 35-C-R / / [id number] documented as of this encounter Visit Diagnoses Diagnosis Pancytopenia (HCC)- Primary Other pancytopenia Splenomegaly 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 (chronic) documented in this encounter Advance Directives Documents on File Type Date Recorded Patient Pants Closer Expl anation Advance Directives and Living Will 04/29/2021 ADVANCE DIRECTIVE / LIVING WILL LIVING WILL AND HEALTH CARE POA Power of Rubber Extrusion Machine Operator 04/29/2021 POWER OF A TTORNEY [...] the patient have Health Care Power of Rubber Extrusion Machine Operator? No Code Status History Code Status Date Activated Date Inactivated Comments Full Code 12/27/2021 2:50 PM 12/27/2021 8:02 PM This order reflects the patients wishes and were consensually agreed upon. Question Answer Comments Discussion of Advance Directives occurred with: Not Discussed Does the patient have a Living Will? No Does the patient have Health Care Power of Rubber Extrusion Machine Operator? No Full Code 03/31/2021 8:57 [...] Agents on File Name Relationship Healthcare Agent [facility] p Communication Syed Bustos Spouse Emergency Contact Care Teams Boardmarker Relationship Specialty Start Date End Date Vanita Dunn MD [address] [facility] [place] [id number] PCP - General Family Medicine 03/16/21 documented as of this encounter
--- OUTSIDE RECORDS SUMMARY | 2023-05-10 16:53 | External Medical Summary | Summary of Care ---
Author Name Unknown Organization [facility] Address [address] [place] [address] Phone [phone] Care Team Providers Care Street Worker Name Role Phone Vanita Dunn MD Primary Care Provid er Reason for Visit * Reason Onset Date Comments Appointment 12/23/2022 Encounter Details Date Type Department Care Team Description 12/23/2022 Telephone [facility], [facility] [address] [facility] [place] [address] Services, Scheduling [address] [place] [address] Appointment (////) Allergies Active Allergy Reactions Severity Noted Date Comments Adhesive Tape Itching 04/29/2020 Penicillins Rash 02/12/2008 Penicillin G 07/20/2018 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 documented as of this encounter (statuses as of 12/23/2022) Medications Medication Sig Dispensed Refills Start Date End Date Status nystatin (NYSTOP) 722468 UNIT/GM powder Apply topically to affected area 3 times a day. 60 g 1 10/16/2019 Active Dexcom G6 Nitrator Operator Device Use as directed. To test blood sugars 4 times a day Dx E11.9 1 Each 0 09/14/2020 Active Dexcom G6 Transmitter Use as directed. To test blood sugars 4 times a day. Change every 90 days. Dx E11.9 1 Each 3 09/14/2020 Active OneTouch Verio In Vitro Strip (Glucose Blood) TESTING once daily 100 Strip 3 10/29/2020 Active OneTouch Delica Plus [id number] TESTING once daily 100 Each 3 10/29/2020 [...] as of this encounter (statuses as of 12/23/2022) Active Problems Problem Noted Date Hypertensive heart [...] as of this encounter (statuses as of 12/23/2022) Resolved Problems Problem Noted Date Resolved Date [...] pain 01/24/2012 01/17/2017 Genetic Sleep Disorder Research Other*[id number] 05/13/2011 04/07/2016 Obstructive sleep apnea 01/18/2011 12/27/19 [...] as of this encounter (statuses as of 12/23/2022) Immunizations Name Administration Dates Next Due COVID-19 mRNA, LNP-s, No Pre serve, 2-Dose Series (Moderna) 01/05/2022,07/26/2021,12/21/2020,11/09 HEP A - Hepatitis A (Adult > 18 yrs) 09/24/2018, 03/26/2018 Hepatitis B, 20+ yrs 09/24/2018,04/23/2018,03/26 Pneumococcal Conjugate Vacc, 13 Valent (Prevnar) 05/02/2019 Pneumococcal Conjugate Vacci ne, 20-valent ([id number]) 10/21/2022 Pneumococcal Polysaccharide PPV23 (Pneumovax) 06/01/2010 Seasonal [...] * Telephone Encounter - THAD Melissa - 12/23/2022 2:21 PM EDT Rcvd call from pt's he advised they need to reschedule his wifes appt that was scheduled on12/28... Rescheduled appt on 01/23 at 10:00am is a good date and time. documented in this encounter Plan of Treatment Upcoming Encounters Date Type Specialty Care Team Description 12/26/2022 Office Visit [facility] [address] 12/26/2022 Office Visit Hematology Oncology Kenya Gonzalez CRNP [address] [place] [id number] 01/04/2023 Hem/Onc Treatment Hematology Oncology [place], Chair 11 Hem Onc [address] [place] [address] 01/04/2023 Office Visit Pharmacy Pharmacist1, [facility] [address] [place] [address] 01/11/2023 Home Visit [facility] July Poe, RN [address] [place] [address] 01/23/2023 Home Visit [facility] Aleyda Campos PA-C [address] [place] [address] 01/25/2023 Hem/Onc Treatment Hematology Oncology [place], Chair 11 Hem Onc [address] [place] [address] 03/01/2023 PulmDiagnostic Pulmonary Function [place], Pft [address] [place] [address] 03/01/2023 Office Visit Pulmonary Vivian Phillips CRNP [address] [place] [address] 03/08/2023 Office Visit Gastroenterology Lyssa Stout CRNP [address] [place] [address] Scheduled Procedures Name Priority Associated Diagnoses Date/Ti [...] this encounter Medical Devices Implanted Type Area Network Development Coordinator Device Identifier Shelf Expiration Date Model / Serial / Lot Microtech Sure Clip Implanted:Qty: 2 on 06/03/2020 by Janis Hatch DO at OR [facility] Clip N/A: Colon 04/21/2022 [facility]-F-26-2 35-C-R / / [id number] documented as of this encounter Advance Directives Documents on File Type Date Recorded Patient Liquor Tester Expl anation Advance Directives and Living Will 04/29/2021 ADVANCE DIRECTIVE / LIVING WILL LIVING WILL AND HEALTH CARE POA Power of Bead Trimmer 04/29/2021 POWER OF A TTORNEY HEALTH CARE [...] the patient have Health Care Power of Bead Trimmer? No Code Status History Code Status Date Activated Date Inactivated Comments Full Code 12/27/2021 2:50 PM 12/27/2021 8:02 PM This order reflects the patients wishes and were consensually agreed upon. Question Answer Comments Discussion of Advance Directives occurred with: Not Discussed Does the patient have a Living Will? No Does the patient have Health Care Power of Bead Trimmer? No Full Code 03/31/2021 8:57 PM 04/03/2021 [...] Syed Bustos Spouse Emergency Contact Care Teams Street Worker Relationship Specialty Start Date End Date Vanita Dunn MD [address] [place] [address] PCP - General Family Medicine 03/16/21 documented as of this encounter
--- OUTSIDE RECORDS SUMMARY | 2023-05-10 16:53 | External Medical Summary | Summary of Care ---
Author Name Unknown Organization [facility] Address [address] [place] [address] Phone [phone] Care Team Providers Care Rim Fire Priming Operator Name Role Phone Vanita Dunn MD Primary Care Provid er Reason for Referral * Precert (Within 10 days (routine)) - Pending Review Specialty Diagnoses / Procedures Referred By Contac t Referred To Contact Radiology Diagnoses Cirrhosis of liver without ascites, unspecified hepatic cirrhosis type (HCC) Procedures CT LIVER 4-PHASE W WO IV CONTRAST - WO ORAL CONT CT ABDOMEN W WO IV AND W ORAL CONTRAST Lyssa Stout CRNP [address] [place] [address] Referral ID Status Reason Start Date Expiration Date Visits Requested Visits Authorized [id number] Pending Review Precert 09/08/2022 03/07/[phone] Reason for Visit * Reason Comments Follow Up Cirrhosis Encounter Details Date Type Department Care Team Description 08/30/2022 Office Visit Gastroenterology, [facility] [address] [place] [address] Lyssa Stout CRNP [address] [place] [address] Cirrhosis of liver without ascites, unspecified hepatic cirrhosis type (HCC)*; NAFLD (nonalcoholic fatty liver disease) Allergies Active Allergy Reactions Severity Noted Date Comments Adhesive Tape Itching 04/29/2020 Penicillins Rash 02/12/2008 Penicillin G 07/20/2018 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 documented as of this encounter (statuses as of 12/20/2022) Medications Medication Sig Dispensed Refills Start Date End Date Status nystatin (NYSTOP) 159797 UNIT/GM powder Apply topically to affected area 3 times a day. 60 g 1 0 Active Dexcom G6 Shoe Reconditioner Device Use as directed. To test blood sugars 4 times a day Dx E11.9 1 Each 0 1 Active Dexcom G6 Transmitter Use as directed. To test blood sugars 4 times a day. Change every 90 days. Dx E11.9 1 Each 3 1 Active OneTouch Verio In Vitro Strip (Glucose Blood) TESTING once daily 100 Strip 3 1 Active ComparisimTouch Delica Plus [id number] TESTING once daily 100 Each 3 1 [...] DAILY DIRECTED 16 g 5 1 Active Budesonide-Formote rol Fumarate 160-4.5 MCG/ACT Inhalation Aerosol Inhale 2 Puffs by mouth in the morning and 2 Puffs before bedtime. 10.2 g 1 2 Active Dexcom G6 Sensor use as directed to test blood sugar 4 times daily. change sensor every 10 days 3 Each 3 2 Active Disposable Brief X-LargeIndications :Hypertensive heart disease with chronic diastolic congestive heart failure (HCC),Hepatic cirrhosis, unspecified hepatic cirrhosis type, unspecified whether ascites present (HCC),Other cerebral palsy (HCC),Urinary incontinence, unspecified type,Frequent fecal incontinence Use as directed 60 Each 5 2 Active Potassium Chloride ER 10 MEQ Oral Tablet Extended ReleaseIndications :Hypokalemia Take by mouth 1 Tablet in the morning. With food.. 90 Tablet 3 2 Active Lidocaine-Prilocai ne 2.5-2.5 % External Cream (Emla)Indications: Encounter for antineoplastic chemotherapy Apply topically to affected area as needed for Other (when accessing port). APPLY TO SKIN OVER MEDIPORT & COVER 1HR PRIOR TO ACCESSING. 30 g 0 2 Active Trulicity 4.5 MG/0.5ML Subcutaneous Solution Pen-injector (Dulaglutide)Indic ations:Type 2 diabetes mellitus with hemoglobin A1c goal of less than 7.0% ([facility]) inject 4.5mg (1 pen) under [...] goal of less than 7.0% ([facility]) USE TO INJECT INSULIN FOUR TIMES DAILY. 400 Each 3 2 Active Linzess 290 MCG Oral Capsule (linaCLOtide) TAKE 1 CAPSULE BY MOUTH ONCE DAILY BEFORE BREAKFAST 90 Capsule 1 2 Active Silver sulfADIAZINE 1 % External Cream (Silvadene)Indicat ions:Pressure injury of skin of sacral region, unspecified injury stage Apply topically to affected area daily . Apply to wound 85 g 11 2 Active Nadolol 40 MG Oral Tablet (Corgard)Indicatio [...] MOUTH DAILY 90 Tablet 0 2 Active Mupirocin 2 % External Ointment (Bactroban) Apply to the right side of the nose twice daily 22 g 0 2 023 Discontinued Furosemide 20 MG Oral Tablet (Lasix) TAKE 1 TABLET BY MOUTH DAILY as needed for lower extremity swelling 90 Tablet 1 2 022 Discontinued Lactulose 10 GM/15ML Oral Solution (Constulose) Take 30mL by mouth 3 TIMES daily, titrate dose for effect of 3-5 bowel movements daily 1892 mL 3 2 023 Discontinued Aspirin 81 MG Oral Tablet Chewable CHEW AND SWALLOW 1 TABLET BY MOUTH ONCE DAILY 30 Tablet 8 2 023 Discontinued Oxybutynin Chloride 5 MG Oral Tablet (Ditropan) TAKE 1 TABLET BY MOUTH TWICE DAILY 180 Tablet 1 2 023 Discontinued Pantoprazole Sodium 20 MG Oral Tablet Delayed Release (Protonix)Indicati ons:NAFLD (nonalcoholic fatty liver disease),Other cirrhosis of liver (HCC) TAKE 2 TABLETS BY MOUTH TWICE DAILY 360 Tablet 1 2 023 Discontinued(Re fill) Benzonatate 200 MG Oral CapsuleIndications :Bronchitis, complicated Take by mouth 1 Capsule as needed in the morning AND 1 Capsule as needed at noon AND 1 Capsule as needed in the evening for Cough. 30 Capsule 1 2 023 Discontinued traMADol HCl 50 MG Oral Tablet (Ultram)Indication s:Abdominal pain, generalized Take by mouth 2 Tablets every 6 hours as needed for Pain, Severe (abdominal pain). 40 Tablet 0 2 023 Discontinued(Ny dication List Clean Up) Gabapentin 300 MG Oral Capsule (Neurontin)Indicat ions:DM type 2 with diabetic peripheral neuropathy (HCC),Diabetic foot (HCC) TAKE 1 CAPSULE BY MOUTH EVERY MORNING, 1 CAPSULE MIDDAY, AND 2 CAPSULES IN THE EVENING, MAY TAKE AN EXTRA DOSE IN THE MORNING AND MIDDAY IF NEEDED FOR PAIN MAX DAILY AMOUNT: 6 CAPSULES 360 Capsule 0 2 023 Discontinued Lantus SoloStar 100 UNIT/ML Subcutaneous Solution Pen-injectorIndica tions:Type 2 diabetes mellitus with hemoglobin A1c goal of less than 8.0% ([facility]) Inject 50 Units under the skin every night at bedtime. 45 mL 3 2 023 Discontinued(Re fill) Fluticasone-Salmet jayme 250-50 MCG/ACT Inhalation Aerosol Powder Breath Activated Inhale 1 Puff by mouth in the morning and 1 Puff before bedtime. 0 023 Discontinued methylPREDNISolone 4 MG Oral Tablet Therapy Pack (Medrol Dosepack) follow package directions 21 Tablet 0 2 023 Discontinued(En d of Procedure) Hospital, Clinic, or Other Facility Administered Medication [...] as of this encounter (statuses as of 12/20/2022) Active Problems Problem Noted Date Hypertensive heart [...] as of this encounter (statuses as of 12/20/2022) Resolved Problems Problem Noted Date Resolved Date [...] pain 01/24/2012 01/17/2017 Genetic Sleep Disorder Research Other*[id number] 05/13/2011 04/07/2016 Obstructive sleep apnea 01/18/2011 12/27/19 [...] as of this encounter (statuses as of 12/20/2022) Immunizations Name Administration Dates Next Due COVID-19 mRNA, LNP-s, No Pre serve, 2-Dose Series (Moderna) 01/05/2022,07/26/2021,12/21/2020,11/09 HEP A - Hepatitis A (Adult > 18 yrs) 09/24/2018, 03/26/2018 Hepatitis B, 20+ yrs 09/24/2018,04/23/2018,03/26 Pneumococcal Conjugate Vacc, 13 Valent (Prevnar) 05/02/2019 Pneumococcal Conjugate Vacci ne, 20-valent ([id number]) 10/21/2022 Pneumococcal Polysaccharide PPV23 (Pneumovax) 06/01/2010 Seasonal [...] Sign Reading Time Taken Comments Blood Pressure 120/82 08/30/2022 12:54 PM EST Pulse 75 08/30/2022 12:54 PM EST Temperature 36.6 C (97.8 F) 08/30/2022 12:[address] Respiratory Rate 16 08/30/2022 12:54 PM EST Oxygen Saturation 98% 08/30/2022 12:54 PM EST Inhaled Oxygen Concentration - - Weight - [...] as of this encounter Progress Notes * Lyssa Stout, ZAK - 08/30/2022 1:22 PM EST DATE OF SERVICE: 08/30/22 REFERRING PHYSICIAN: Rajwinder Carter DO CC: F/U NG cirrhosis HPI: 08/30/22: Patient has been having headaches and [...] or dark tarry stools 05/11/2021 (seen by [facility] Hepatology, Dr. Sergei Sanchez): 65 year old female with hx ofNASH cirrhosis with portal HTN (G1-2EV on nadolol), THAD (CPAP), DM II, hypothyroidism, HFpEF, DLD who presents to [facility] hepatology clinic for follow up. She was recently admitted to [facility] 03/07/21-03/11/21 with chest/epigastric pain. 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 12/27/2010 Lymphedema 03/11/2013 MEDICATION USE AGREEMENT 03/27/2012 03/27/12 Myalgia and myositis 03/27/2012 NG (nonalcoholic steatohepatitis) 05/02/2012 Neuropathy Other specified infantile cerebral palsy Oxygen dependent 04/08/2019 Primary insomnia 04/04/2019 Restrictive lung disease 12/2014 Sleep apnea CPAP Sleep apnea, obstructive Sleep disturbance 01/24/2012 Type 2 diabetes mellitus with hemoglobin A1c goal of less than 8.0% ([facility]) 09/26/2013 ICD-10 update of inactive term Venous insufficiency 01/09/2009 duplicate Family History Problem Relation Age of Onset Heart Disorder Father of SD at age 61 Diabetes Father Heart Disorder Mother of SD age 72 Heart Disorder Sister Mi at age 46 Hypertension Sister Cancer No significant family history Arthritis No significant family history Mental Disorder No significant family history Stroke No significant family history Past Surgical History: Procedure Laterality Date BONE DEBRIDEMENT, FIRST 20 CM2 Right 04/16/2020 DEBRIDEMENT SKIN SUBCUTANEOUS TISSUE MUSCLE AND BONE performed by Josh Vazquez MD at OR [facility] DELIVERY 04/20/1982 COLONOSCOPY 04/21/2009 repeat in 10 years COLONOSCOPY, DIAGNOSTIC (RECTUM) 10/04/2016 normal bx, repeat 10 yrs/[facility] COLONOSCOPY, DIAGNOSTIC (RECTUM) N/A 06/03/2020 internal hemorrhoids/biopsies show adenomatous polyps/recall 5 years/COLONOSCOPY FLEXIBLE PROXIMAL DIAGNOSTIC performed by Janis Hatch DO at OR [facility] COLONOSCOPY, DIAGNOSTIC (RECTUM) 03/17/2020 poor prep / [facility] DENTAL SURGERY PROCEDURE NEC wisdom teeth x 4 DILATION AND CURETTAGE (D&C) EGD, FLEXIBLE, DIAGNOSTIC 10/04/2016 gastritis/[facility] EGD, FLEXIBLE, DIAGNOSTIC 01/11/2018 eso varices, retained food, repeat 1 yr/[facility] EGD, FLEXIBLE, DIAGNOSTIC N/A 06/03/2020 severe erosive esophagitis/non-bleeding grade II esophageal varices/gastritis/biopsies show inflammatory changes/repeat 3-4 months/ESOPHAGOGASTRODUODENOSCOPY (EGD), FLEXIBLE, TRANSORAL, DIAGNOSTIC per formed by Janis Hatch DO at OR [facility] EGD, FLEXIBLE, DIAGNOSTIC 11/27/2019 eso varices, portal hypertensive gastropathy, gastritis / [facility] EGD, FLEXIBLE, DIAGNOSTIC N/A 08/05/2020 large amount of food in stomach/repeat 1.5 years/ESOPHAGOGASTRODUODENOSCOPY (EGD), FLEXIBLE, TRANSORAL, DIAGNOSTIC performed by Janis Hatch DO at OR [facility] EGD, FLEXIBLE, DIAGNOSTIC N/A 03/10/2021 ESOPHAGOGASTRODUODENOSCOPY (EGD), FLEXIBLE, TRANSORAL, DIAGNOSTIC performed by Kris Blankenship MD at ENDOSCOPY [facility] HYSTEROSCOPY W/BIOPSY AND/OR POLYPECTOMY W/WO D&C N/A 12/27/2021 HYSTEROSCOPY WITH BIOPSY AND/OR POLYPECTOMY WITH OR WITHOUT D&C performed by Concetta Khan MD at OR [facility] HYSTEROSCOPY W/BIOPSY AND/OR POLYPECTOMY W/WO D&C N/A 02/14/2022 HYSTEROSCOPY WITH BIOPSY AND/OR POLYPECTOMY WITH OR WITHOUT D&C performed by Concetta Khan MD at OR [facility] INSERT INTRAUTERINE DEVICE (IUD) N/A 02/14/2022 INSERTION OF INTRAUTERINE DEVICE performed by Concetta Khan MD at OR [facility] IR VENOUS ACCESS MEDIPORT 10/05/2020 PELVIS/HIP JOINT SURGERY NEC teenager aid in walking REMOVE CERVIX CONE W/LOOP ELECTRODE N/A 12/27/2021 LOOP ELECTROSURGERY EXCISION PROCEDURE performed by Concetta Khan MD at OR [facility] REPAIR/GRAFT ACHILLES TENDON age 40 aid [...] Medications Medication Sig Dispense Refill nystatin (NYSTOP) 717441 UNIT/GM powder Apply topically to affected area 3 times a day. 60 g 1 Dexcom G6 Shoe Reconditioner Device Use as directed. To test blood sugars 4 times a day Dx E11.9 1 Each 0 Dexcom G6 Transmitter Use as directed. To test blood sugars 4 times a day. Change every 90 days. Dx E11.9 1 Each 3 OneTouch Verio In Vitro Strip (Glucose Blood) TESTING once daily 100 Strip 3 Nitroglycerin 0.4 MG Sublingual Tablet Sublingual [...] change sensor every 10 days3 Each 3 Mupirocin 2 % External Ointment (Bactroban) Apply to the right side of the nose twice daily 22 g 0 Potassium Chloride ER 10 MEQ Oral Tablet Extended Release Take by mouth 1 Tablet in the morning. With food.. 90 Tablet 3 Lidocaine-Prilocaine 2.5-2.5 % External Cream (Emla) Apply topically to affected area as neededfor Other (when accessing port). APPLY TO SKIN OVER MEDIPORT & COVER 1HR PRIOR TO ACCESSING. 30g 0 Furosemide 20 MG Oral Tablet (Lasix) TAKE 1 TABLET BY MOUTH DAILY as needed for lower extremityswelling 90 Tablet 1 Lactulose 10 GM/15ML Oral Solution (Constulose) Take 30mL by mouth 3 TIMES daily, titrate dose for effect of 3-5 bowel movements daily 1892 mL 3 Trulicity 4.5 MG/0.5ML Subcutaneous Solution Pen-injector (Dulaglutide) inject 4.5mg (1 pen) under the skin once weekly 6 mL 5 Aspirin 81 MG Oral Tablet Chewable CHEW AND SWALLOW 1 TABLET BY MOUTH ONCE DAILY 30 Tablet 8 Oxybutynin Chloride 5 MG Oral Tablet (Ditropan) TAKE 1 TABLET BY MOUTH TWICE DAILY 180 Tablet 1 Spironolactone 25 MG Oral Tablet (Aldactone) Take by mouth 2 Tablets in the morning. 180 Tablet3 Pantoprazole Sodium 20 MG Oral Tablet Delayed Release (Protonix) TAKE 2 TABLETS BY MOUTH TWICE DAILY 360 Tablet 1 traZODone HCl 50 MG Oral Tablet (Desyrel) TAKE 1 TABLET BY MOUTH AT BEDTIME 90 Tablet 3 Benzonatate 200 MG Oral Capsule Take by mouth 1 Capsule as needed in the morning AND 1 Capsule as needed at noon AND 1 Capsule as needed in the evening for Cough. 30 Capsule 1 Levothyroxine Sodium 150 MCG Oral Tablet (Levoxyl) Take by mouth 1 Tablet in the morning. (at least 30 min prior to breakfast or other meds). 30 Tablet 11 BD Pen Needle Mini U/F 31G X 5 MM (Insulin Pen Needle) USE TO INJECT INSULIN FOUR TIMES DAILY. 400 Each 3 Linzess 290 MCG Oral Capsule (linaCLOtide) TAKE 1 CAPSULE BY MOUTH ONCE DAILY BEFORE BREAKFAST 90 Capsule 1 Silver sulfADIAZINE 1 % External Cream (Silvadene) [...] DAY WITH A MEAL 90 Tablet 1 Gabapentin 300 MG Oral Capsule (Neurontin) TAKE 1 CAPSULE BY MOUTH EVERY MORNING, 1 CAPSULE MIDDAY, AND 2 CAPSULES IN THE EVENING, MAY TAKE AN EXTRA DOSE IN THE MORNING AND MIDDAY IF NEEDED FOR PAIN MAX DAILY AMOUNT: 6 CAPSULES 360 Capsule 0 Isosorbide Mononitrate ER 30 MG Oral Tablet Extended Release 24 Hour (Imdur) TAKE 1 TABLET BY MOUTH DAILY 90 Tablet 1 NovoLOG FlexPen 100 UNIT/ML Subcutaneous Solution Pen-injector 35 Units at breakfast, 39 Units before lunch, 45 Units before supper 120 mL 3 Lantus SoloStar 100 UNIT/ML Subcutaneous Solution Pen-injector Inject 50 Units under the skin every night at bedtime. 45 mL 3 Escitalopram Oxalate 20 MG Oral Tablet (Lexapro) TAKE 1 TABLET BY MOUTH DAILY 90 Tablet 0 Fluticasone-Salmeterol 250-50 MCG/ACT Inhalation Aerosol Powder Breath Activated Inhale 1 Puff by mouth in the morning and 1 Puff before bedtime. methylPREDNISolone 4 MG Oral Tablet Therapy Pack (Medrol Dosepack) follow package directions 21Tablet 0 OneTouch Delica Plus [id number] TESTING once daily 100 Each 3 Disposable Brief X-Large Use as directed 60 Each 5 traMADol HCl 50 MG Oral Tablet (Ultram) Take by mouth 2 Tablets every 6 hours as needed for Pain, Severe (abdominal pain). (Patient not taking: Reported on 08/12/2022) 40 Tablet 0 Current Facility-Administered Medications Medication Dose Route Frequency Provider Last Rate Last Admin Albuterol Sulfate (Proventil) (2.5 MG/3ML) 0.083% inhalation solution 2.5 mg 2.5 mg Nebulizer PRN William Morales PA-C Albuterol Sulfate (Proventil) (5 MG/ML) 0.5% *conc* inhalation solution 2.5 mg 2.5 mg NebulizerPRN William Morales PA-C REVIEW OF SYSTEMS: See HPI above; All other findings negative. EXAM: Filed Vitals: 08/30/22 1254 BP: 120/82 Pulse: 75 Resp: 16 Temp: 36.6 C (97.8 F) SpO2: 98% GENERAL: Well developed and well nourished in [...] w NALFD Cirrhosis, varices, anemia, constipation. MELD 9. - Continue Protonix to 40mg BID given indigestion, GERD control, Carafate slurry. - Obtain MELD labs q3-6months. - Last EGD 07/2020. She is on Nadolol 40mg daily, goal HR 55-65 (not increased due to vertigo/HAs) - Last Colonoscopy: 05/2020, recall 5 yrs for hx of TA polyps - Hep A immunity: completed series - Hep B immunity: completed series - HCC screening [id number]: AFP and obtain CT liver for next HCC screening. - Encouraged to abstain from ETOH, illicit [...] for their visit today. RETURN TO CLINIC: 3- 4 months or sooner shantin Esteban Pineda Gastroenterology, [facility] documented in this encounter Nursing Notes * Josefina Irvin RN - 08/30/2022 1:02 PM EST Patient identified by name and date of . Chief Complaint Patient presents with Follow Up Cirrhosis Accompanied by titus. Symptoms: NO symptoms Bowel Movement Frequency: varies ; 2-3 a day Bowel Movement Consistency: loose and formed Straining: no Rectal Pain: no Blood in Stool: No documented in this encounter Miscellaneous Notes * Result Encounter Note - ZAK Bolton - 08/31/2022 9:29 AM EST Pt informed of lab results ZAK Schreiber documented in this encounter Plan of Treatment Upcoming Encounters Date Type Specialty Care Team Description 12/26/2022 Office Visit [facility] [address] [facility] [address] 12/26/2022 Office Visit Hematology Oncology Kenya Gonzalez CRNP [address] [place] [address] 12/28/2022 [facility] Visit [facility] Aleyda Campos PA-C [address] [address] 01/04/2023 Hem/Onc Treatment Hematology [address] [place] [place] [address] 01/04/2023 Office Visit Pharmacy Pharmacist1, [facility] [address] [place] [address] 01/11/2023 Home Visit [facility] July Poe, RN [address] [place] [address] 01/25/2023 Hem/Onc Treatment Hematology [address] [place] [place] [address] 03/01/2023 PulmDiagnostic Pulmonary Function [place], [address] [place] [address] 03/01/2023 Office Visit Pulmonary Vivian Phillips CRNP [address] [place] [address] 03/08/2023 Office Visit Gastroenterology Lyssa Stout CRNP [address] [place] [address] Scheduled Procedures Name Priority Associated Diagnoses Date/Ti [...] this encounter Medical Devices Implanted Type Area Executive Pilot Device Identifier Shelf Expiration Date Model / Serial / Lot [employer] Sure Clip Implanted:Qty: 2 on 06/03/2020 by Janis Hatch DO at OR [facility] Clip N/A: Colon 04/21/2022 [facility]-F-[id number] 35-C-R / / [id number] documented as of this encounter Procedures Procedure Name Priority Date/Time Associated Diagnosis Comments CT LIVER 4-PHASE W WO IV CONTRAST - WO ORAL CONT Routine 12/16/2022 Cirrhosis of liver without ascites, unspecified hepatic cirrhosis type (HCC) DIFFERENTIAL, AUTOMATED Routine 08/30/2022 3:52 PM EST Cirrhosis of liver without ascites, unspecified hepatic cirrhosis type (HCC) COMPREHENSIVE METABOLIC PANEL Routine 08/30/2022 3:52 PM EST Cirrhosis of liver without ascites, unspecified hepatic cirrhosis type (HCC) CBC WITH WBC DIFFERENTIAL Routine 08/30/2022 3:52 PM EST Cirrhosis of liver without ascites, unspecified hepatic cirrhosis type (HCC) PT INR Routine 08/30/2022 3:52 PM EST Cirrhosis of liver without ascites, unspecified hepatic cirrhosis type (HCC) CBC Routine 08/30/2022 3:52 PM EST Cirrhosis of liver without ascites, unspecified hepatic cirrhosis type (HCC) DIFFERENTIAL, TECHNOLOGIST REVIEW Routine 08/30/2022 3:52 PM EST Cirrhosis of liver without ascites, unspecified hepatic cirrhosis type (HCC) ALPHA-FETOPROTEIN TUMOR MARKER Routine 08/30/2022 3:52 PM EST Cirrhosis of liver without ascites, unspecified hepatic cirrhosis type (HCC) documented in this encounter Results * CT LIVER 4-PHASE W WO IV CONTRAST - WO ORAL CONT (12/16/2022) Anatomical Region Laterality Modality Abdomen, Body Other 12/16/[address] * (ABNORMAL) DIFFERENTIAL, TECHNOLOGIST REVIEW (08/30/2022 3:52 PM EST) [facility] Anisocytosis Slight(A) None Seen 08/31/2022 1:35 AM EST [facility] Macrocytosis Present(A) None Seen 08/31/2022 1:35 AM EST [facility] Ovalocytes Few(A) None Seen 08/31/2022 1:35 AM EST [facility] Blood Venous blood specimen / Unknown Venipuncture / Unknown 08/30/2022 3:52 PM EST 08/30/2022 4:01 PM EST Lyssa CRESPO LAB BLOOD ORDER DHARA Performing Organization Address City/State/[facility] Co de Phone Number [facility] [address] [place] [address] * (ABNORMAL) DIFFERENTIAL, AUTOMATED (08/30/2022 3:52 PM EST) [facility] WBC 5.26 4.00 - 10.80 K/uL 08/31/2022 1:35 AM EST [facility] Neutrophils % 78.0(H) 40.0 - 75.0 % 08/31/2022 1:35 AM EST [facility] Lymphocytes % 12.5(L) 18.0 - 42.0 % 08/31/2022 1:35 AM EST [facility] Monocytes % 7.8 1.0 - 11.0 % 08/31/2022 1:35 AM EST [facility] Eosinophils % 0.4 0.0 - 6.0 % 08/31/2022 1:35 AM EST [facility] Basophils % 0.2 0.0 - 2.0 % 08/31/2022 1:35 AM EST [facility] Immature Granulocytes % 1.1 0.0 - 2.0 % 08/31/2022 1:35 AM EST [facility] Absolute Neutrophils 4.10 1.80 - 7.70 K/uL 08/31/2022 1:35 AM EST [facility] Absolute Lymphocytes 0.66(L) 1.00 - 4.80 K/ul 08/31/2022 1:35 AM EST [facility] Absolute Monocytes 0.41 0.00 - 1.10 K/uL 08/31/2022 1:35 AM EST [facility] Absolute Eosinophils 0.02 0.00 - 0.70 K/uL 08/31/2022 1:35 AM EST [facility] Absolute Basophils 0.01 0.00 - 0.20 K/uL 08/31/2022 1:35 AM EST [facility] Absolute Immature Granulocytes 0.06 0.00 - 0.20 K/uL 08/31/2022 1:35 AM EST [facility] Blood Venous blood specimen / Unknown Venipuncture / Unknown 08/30/2022 3:52 PM EST 08/30/2022 4:01 PM EST Lyssa CRESPO LAB BLOOD ORDER DHARA [facility] [address] [place] [address] * (ABNORMAL) CBC (08/30/2022 3:52 PM EST) WBC 5.26 4.00 - 10.80 K/uL 08/31/2022 1:35 AM EST [facility] RBC 2.74 3.85 - 5.15 M/uL 08/31/2022 1:35 AM EST [facility] HGB 10.3(L) 12.0 - 15.3 g/dL 08/31/2022 1:35 AM EST [facility] HCT 33.2(L) 36.0 - 45.2 % 08/31/2022 1:35 AM EST [facility] MCV 121.2 81.5 - 97.5 fL 08/31/2022 1:35 AM EST [facility] MCH 37.6 27.0 - 34.0 pg 08/31/2022 1:35 AM EST [facility] MCHC 31.0 32.0 - 36.0 g/dL 08/31/2022 1:35 AM EST [facility] RDW 17.0 11.5 - 15.5 % 08/31/2022 1:35 AM EST [facility] PLT 63(L) 140 - 400 K/uL 08/31/2022 1:35 AM EST [facility] MPV 08/31/2022 1:35 AM EST [facility] Comment:No result - abnormal platelet distribution. nRBCs 0 <=0 /100 WBCs 08/31/2022 1:35 AM EST LABORATORY C Blood Venous blood specimen / Unknown Venipuncture / Unknown 08/30/2022 3:52 PM EST 08/30/2022 4:01 PM EST Lyssa Travis Girish CRESPO LAB BLOOD ORDER DHARA Performing Organization Address City/[facility]/ZIP Co de Phone Number LABORATORY [facility] [address] [place] [address] * ALPHA-FETOPROTEIN TUMOR MARKER (08/30/2022 3:52 PM EST) Pathologist [facility] Alpha-Fetoprot ein Tumor Marker 7.3 0.0 - 8.3 ng/mL 08/31/2022 2:38 AM EST LABORATORY [facility] Blood Venous blood specimen / Unknown Venipuncture / Unknown 08/30/2022 3:52 PM EST 08/30/2022 4:01 PM EST Lyssa Travis Girish CRESPO LAB BLOOD ORDER DHARA Performing Organization Address City/[facility]/ZIP Co de Phone Number LABORATORY [facility] [address] [place] [address] * (ABNORMAL) PT INR (08/30/2022 3:52 PM EST) Prothrombin Time 17.4(H) 11.6 - 15.2 seconds 08/30/2022 10:05 PM EST LABORATORY C INR 1.4(H) 0.8 - 1.2 08/30/2022 10:05 PM EST LABORATORY C Blood Venous blood specimen / Unknown Venipuncture / Unknown 08/30/2022 3:52 PM EST 08/30/2022 4:01 PM EST Narrative LABORATORY [facility] - 08/30/2022 10:05 PM EST Warfarin Therapy INR: 2.0-3.0 conventional anticoagulation INR: 2.5-3.5 high intensity anticoagulation Lyssa Stout SPORTS MEDICINE TRAINER LAB BLOOD ORDER [facility] [address] [place] [address] * (ABNORMAL) COMPREHENSIVE METABOLIC PANEL (08/30/2022 3:52 PM EST) BUN 17 6 - 20 mg/dL 08/31/2022 1:48 AM EST LABORATORY [facility] Creatinine 0.6 0.5 - 1.0 mg/dL 08/31/2022 1:48 AM EST LABORATORY [facility] Estimated Glomerular Filtration Rate >90 >=60 mL/min 08/31/2022 1:48 AM EST LABORATORY [facility] Comment:eGFR is calculated b ased on the CKD-EPI 2020 equation Sodium 139 135 - 146 mmol/L 08/31/2022 1:48 AM EST LABORATORY [facility] Potassium 4.6 3.5 - 5.1 mmol/L 08/31/2022 1:48 AM EST LABORATORY [facility] Chloride 106 98 - 107 mmol/L 08/31/2022 1:48 AM EST LABORATORY [facility] CO2 23 22 - 32 mmol/L 08/31/2022 1:48 AM EST LABORATORY [facility] Anion Gap 10 7 - 15 mmol/L 08/31/2022 1:48 AM EST LABORATORY G[facility] Glucose 205(H) 70 - 120 mg/dL 08/31/2022 1:48 AM EST LABORATORY [facility] Albumin 3.4(L) 3.8 - 5.0 g/dL 08/31/2022 1:48 AM EST LABORATORY [facility] AST 113(H) 10 - 35 U/L 08/31/2022 1:48 AM EST LABORATORY [facility] Alkaline Phosphatase 106 35 - 130 U/L 08/31/2022 1:48 AM EST LABORATORY [facility] Bilirubin, Total 1.8(H) <=1.2 mg/dL 08/31/2022 1:48 AM EST LABORATORY [facility] Calcium 8.8 8.4 - 10.2 mg/dL 08/31/2022 1:48 AM EST LABORATORY [facility] Protein 6.3 6.0 - 8.3 g/dL 08/31/2022 1:48 AM EST LABORATORY [facility] ALT 65(H) 10 - 35 U/L 08/31/2022 1:48 AM EST LABORATORY [facility] Blood Venous blood specimen / Unknown Venipuncture / Unknown 08/30/2022 3:52 PM EST 08/30/2022 4:01 PM EST Lyssa Stout ZAK LAB BLOOD ORDER [facility] [address] [place] [address] documented in this encounter Visit Diagnoses Diagnosis Cirrhosis of liver without ascites, unspecified hepatic cirrhosis type (HCC)- Primary NAFLD (nonalcoholic fatty liver disease) Other chronic nonalcoholic liver disease documented in this encounter Additional Health Concerns Infection Onset Date Last Indicated Resolved Time MRSA 09/17/2022 09/17/2022 11/16/2022 12:2 0 AM EST documented as of this encounter Advance Directives Documents on File Type Date Recorded Patient Journalism Intern Expl anation Advance Directives and Living Will 04/29/2021 ADVANCE DIRECTIVE / LIVING WILL LIVING WILL AND HEALTH CARE POA Power of Clinical Physician Assistant 04/29/2021 [facility]OWER [facility] A [facility] [...] the patient have Health Care Power of Clinical Physician Assistant? No Code Status History Code Status Date Activated Date Inactivated Comments Full Code 12/27/2021 2:50 PM 12/27/2021 8:02 PM This order reflects the patients wishes and were consensually agreed upon. Question Answer Comments Discussion of Advance Directives occurred with: Not Discussed Does the patient have a Living Will? No Does the patient have Health Care Power of Clinical Physician Assistant? No Full Code 03/31/2021 8:57 PM [...] Agents on File Name Relationship Healthcare Agent [facility] p Communication Titsu Bustos Spouse Emergency Contact Care Teams Rim Fire Priming Operator Relationship Specialty Start Date End Date Vanita Dunn MD [address] [facility] [place] [address] PCP - General Family Medicine 03/16/21 documented as of this encounter
--- OUTSIDE RECORDS SUMMARY | 2023-05-10 16:53 | External Medical Summary | Summary of Care ---
Author Name Unknown Organization [facility] Address [address] [facility] [place] [address] Phone [phone] Care Team Providers Care Production Dispatcher Name Role Phone Vanita Dunn MD Primary Care Provid er Reason for Visit * Reason Onset Date Comments Fax 12/29/2022 Encounter Details Date Type Department Care Team Description 12/29/2022 Telephone [facility] [address] [place] [address] Vanita Dunn MD [address] [place] [address] Fax Allergies Active Allergy Reactions Severity Noted Date Comments Adhesive Tape Itching 04/29/2020 Penicillins Rash 02/12/2008 Penicillin G 07/20/2018 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 documented as of this encounter (statuses as of 12/29/2022) Medications Medication Sig Dispensed Refills Start Date End Date Status nystatin (NYSTOP) 590688 UNIT/GM powder Apply topically to affected area 3 times a day. 60 g 1 10/16/2019 Active Dexcom G6 Drum Attendant Device Use as directed. To test blood sugars 4 times a day Dx E11.9 1 Each 0 09/14/2020 Active Dexcom G6 Transmitter Use as directed. To test blood sugars 4 times a day. Change every 90 days. Dx E11.9 1 Each 3 09/14/2020 Active OneTouch Verio In Vitro Strip (Glucose Blood) TESTING once daily 100 Strip 3 10/29/2020 Active The Broadband Computer CompanyTouch Delica Plus [id number] TESTING once daily 100 Each 3 10/29/2020 [...] as of this encounter (statuses as of 12/29/2022) Active Problems Problem Noted Date Hypertensive heart [...] as of this encounter (statuses as of 12/29/2022) Resolved Problems Problem Noted Date Resolved Date [...] pain 01/24/2012 01/17/2017 Genetic Sleep Disorder Research Other*[id number] 05/13/2011 04/07/2016 Obstructive sleep apnea 01/18/2011 12/27/19 [...] as of this encounter (statuses as of 12/29/2022) Immunizations Name Administration Dates Next Due COVID-19 mRNA, LNP-s, No Pre serve, 2-Dose Series (Moderna) 01/05/2022,07/26/2021,12/21/2020,11/09 HEP A - Hepatitis A (Adult > 18 yrs) 09/24/2018, 03/26/2018 Hepatitis B, 20+ yrs 09/24/2018,04/23/2018,03/26 Pneumococcal Conjugate Vacc, 13 Valent (Prevnar) 05/02/2019 Pneumococcal Conjugate Vacci ne, 20-valent ([id number]) 10/21/2022 Pneumococcal Polysaccharide PPV23 (Pneumovax) 06/01/2010 Seasonal [...] encounter Miscellaneous Notes * Telephone Encounter - Michaelle Lindquist LPN - 12/29/2022 2:53 PM EDT Placed on PCP desk for review and completion. * Telephone Encounter - THAD Page - 12/29/2022 9:16 AM EDT Received. Home Care notified. 12/29/2022 * Telephone Encounter - THAD Bruner - 12/29/2022 8:54 AM EDT Received a call asking if fax was received by office. Name/Company sending fax: [facility] What fax is pertaining to: Incontinence supplies order form Date(s) they sent request: 12/26/2022 Verified fax number they are sending to is correct (Y or N): Yes Callback Number for the clinic to call to verified if fax was received: [phone] documented in this encounter Plan of Treatment Upcoming Encounters Date Type Specialty Care Team Description 01/04/2023 Hem/Onc Treatment Hematology Oncology [place], Chair 11 Hem Onc [facility] [address] [facility], [place] [address] 01/04/2023 Office Visit Pharmacy Pharmacist1, [facility] [address] [facility], [place] [address] 01/11/2023 Home Visit [facility] July Poe RN [address] [place] [address] 01/23/2023 Home Visit [facility] Aleyda Campos PA-C [address] [place] [address] 01/25/2023 Hem/Onc Treatment Hematology Oncology Maryellen, Chair 11 Hem Onc [facility] [address] [facility], [place] [address] 03/01/2023 PulmDiagnostic Pulmonary Function [place], P[address] [place] [address] 03/01/2023 Office Visit Pulmonary Vivian Phillips CRNP [address] [place] [address] 03/08/2023 Office Visit Gastroenterology Lyssa Stout CRNP [address] [place] [address] 06/27/2023 Office Visit Hematology Oncology Tono Sanchez MD [address] [facility], [place] [address] Scheduled Procedures Name Priority Associated Diagnoses Date/Ti [...] this encounter Medical Devices Implanted Type Area Shipwright Apprentice Device Identifier Shelf Expiration Date Model / Serial / Lot Microtech Sure Clip Implanted:Qty: 2 on 06/03/2020 by Janis Hatch DO at OR [facility] Clip N/A: Colon 04/21/2022 [facility]-F-26-2 35-C-R / / [id number] documented as of this encounter Advance Directives Documents on File Type Date Recorded Patient Filter 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 No Code Status History Code Status Date Activated Date Inactivated Comments Full Code 12/27/2021 2:50 PM 12/27/2021 8:02 PM This order reflects the patients wishes and were consensually agreed upon. Question Answer Comments Discussion of Advance Directives occurred with: Not Discussed Does the patient have a Living Will? No Does the patient have Health Care Power of Cytogeneticist? No Full Code 03/31/2021 8:57 PM 04/03/2021 [...] on File Name Relationship Healthcare Agent [facility] p Communication Syed Bustos Spouse Emergency Contact Care Teams Production Dispatcher Relationship Specialty Start Date End Date Vanita Dunn MD [address] [place], [place] [id number] PCP - General Family Medicine 03/16/21 documented as of this encounter
--- OUTSIDE RECORDS SUMMARY | 2023-05-10 16:53 | External Medical Summary | Summary of Care ---
Author Name Unknown Organization [facility] Address [address] [facility] [place] [address] Phone [phone] Care Team Providers Care Clip Baker Name Role Phone Vanita Dunn MD Primary Care Provid er Reason for Visit * Reason Comments Follow Up Encounter Details Date Type Department Care Team Description 12/26/2022 Office Visit [facility] [address] [place] [address] Vanita Dunn MD [address] [place] [address] Wheelchair dependent*; Obesity, morbid (more than 100 lbs over ideal weight or BMI > 40) (HCC); 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; Other cerebral palsy (HCC); Impaired mobility and ADLs; Portal hypertensive gastropathy (HCC); Other cirrhosis of liver (HCC) Allergies Active Allergy Reactions Severity Noted Date Comments Adhesive Tape Itching 04/29/2020 Penicillins Rash 02/12/2008 Penicillin G 07/20/2018 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 documented as of this encounter (statuses as of 12/26/2022) Medications Medication Sig Dispensed Refills Start Date End Date Status nystatin (NYSTOP) 345527 UNIT/GM powder Apply topically to affected area 3 times a day. 60 g 1 10/16/2019 Active Dexcom G6 Civil Engineering Specialist Device Use as directed. To test blood sugars 4 times a day Dx E11.9 1 Each 0 09/14/2020 Active Dexcom G6 Transmitter Use as directed. To test blood sugars 4 times a day. Change every 90 days. Dx E11.9 1 Each 3 09/14/2020 Active OneTouch Verio In Vitro Strip (Glucose Blood) TESTING once daily 100 Strip 3 10/29/2020 Active OneTouch Delica Plus [id number] TESTING once daily 100 Each 3 10/29/2020 [...] goal of less than 7.0% ([facility]) inject 4.5mg (1 pen) under the [...] goal of less than 7.0% ([facility]) USE TO INJECT INSULIN FOUR TIMES [...] as of this encounter (statuses as of 12/26/2022) Active Problems Problem Noted Date Hypertensive heart [...] as of this encounter (statuses as of 12/26/2022) Resolved Problems Problem Noted Date Resolved Date [...] current situation. 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 if a salvage determiner plan is made -continue lexapro Generalized weakness [...] pain 01/24/2012 01/17/2017 Genetic Sleep Disorder Research Other*[id number] 05/13/2011 04/07/2016 Obstructive sleep apnea 01/18/2011 12/27/19 [...] as of this encounter (statuses as of 12/26/2022) Immunizations Name Administration Dates Next Due COVID-19 mRNA, LNP-s, No Pre serve, 2-Dose Series (Moderna) 01/05/2022,07/26/2021,12/21/2020,11/09 HEP A - Hepatitis A (Adult > 18 yrs) 09/24/2018, 03/26/2018 Hepatitis B, 20+ yrs 09/24/2018,04/23/2018,03/26 Pneumococcal Conjugate Vacc, 13 Valent (Prevnar) 05/02/2019 Pneumococcal Conjugate Vacci ne, 20-valent ([id number]) 10/21/2022 Pneumococcal Polysaccharide PPV23 (Pneumovax) 06/01/2010 Seasonal [...] Sign Reading Time Taken Comments Blood Pressure 114/70 12/26/2022 1:52 PM EDT Pulse 71 12/26/2022 1:52 PM EDT Temperature 36.3 C (97.3 F) 12/26/2022 1:52 PM ED T Respiratory Rate 18 12/26/2022 1:52 PM EDT Oxygen Saturation 92% 12/26/2022 1:52 PM EDT Inhaled Oxygen Concentration - - [...] Progress Notes * Vanita Dunn MD - 12/26/2022 2:20 PM EDT ASSESSMENT / PLAN: Shaina Bustos is a 67 year old female with PMHx wheelchair bound, h/o CP, chronic diastolic HF, cirrhosis of liverNAFLDcomplicated by esoph varices and portal hypertensive gastropathy, T2DM, morbid obesity, htn, hld , THAD on CPAP,restrictive lung disease, moderate persistent asthma,and chronic pain - here for recheck #Wheelchair dependent Needs repair of her chair with regard to arm rests and motor - DME order placed #Urinary incontinence Pt is in need of new Pure Wick system, but would like to defer ordering one for now due to insurance reasons. They will let me know when one is needed #Liver cirrhosis Reviewed most recent liver MRI - no new masses, cirrhosis and varices redemonstrated. Answered all questions. #AUB Recommend continue to follow with gynecology - do not recommend removal of iud at this point given that bleeding has improved over all. She will continue to follow with learning administrator for this. Wheelchair dependent (Primary) - DURABLE MEDICAL EQUIPMENT Obesity, morbid (more than 100 lbs over ideal weight or BMI > 40) (HCC) - DURABLE MEDICAL EQUIPMENT 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 - DURABLE MEDICAL EQUIPMENT Other cerebral palsy (HCC) - DURABLE MEDICAL EQUIPMENT Impaired mobility and ADLs Portal hypertensive gastropathy (HCC) Other cirrhosis of liver (HCC) If needed, prefers contact by: Ok to leave message on phone: SUBJECTIVE: Nursing Notes: Preethi Colón, DEVAN 12/26/22 1404 Signed Follow up. Pt not sure what she is following up on. Would like an order for work on her power chair Chief Complaint Patient presents with Follow Up HPI: Shaina Bustos is a 67 year old female. Here for recheck. Here with Brice - voice concerns about her wheel chair, needs some repair. Is doing well with her IUD placed in May - but bleeding has begun to recur and wondering if shouldbe removed? Also notes occasionally will have blood in urine - notes that hydration is limited, drinks mostly sweetened tea. Patient Active Problem List Diagnosis Code Spinal [...] ideal weight or BMI > 40) (HCC) E66.01 Dyslipidemia E78.5 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 R39.81 Acquired hypothyroidism E03.9 Chronic pain syndrome G89.4 MEDICATION USE AGREEMENT [id number] Cirrhosis of liver (HCC) K74.60 THAD on [...] disorder F41.1 Hypertensive heart failure (HCC) I11.0 Current Outpatient Medications Medication Sig Dispense Refill nystatin (NYSTOP) 343912 UNIT/GM powder Apply topically to affected area 3 times a day. 60 g 1 BiPAP every night at bedtime. Fluticasone Propionate 50 MCG/ACT Nasal Suspension (Flonase) USE 2 SPRAYS IN EACH NOSTRIL ONCE DAILY DIRECTED 16 g 5 Budesonide-Formoterol Fumarate 160-4.5 MCG/ACT Inhalation Aerosol Inhale 2 Puffs by mouth in the morning and 2 Puffs before bedtime. 10.2 g 1 Potassium Chloride ER 10 MEQ Oral Tablet [...] breakfast or other meds). 30 Tablet 11 Nadolol 40 MG Oral Tablet (Corgard) [...] mouth in the morning. 30 Tablet 2 Linzess 290 MCG Oral Capsule (linaCLOtide) TAKE 1 CAPSULE BY MOUTH once DAILY before breakfast 90 Capsule 3 Dexcom G6 Civil Engineering Specialist Device Use as directed. To test blood sugars 4 times a day Dx E11.9 1 Each 0 Dexcom G6 Transmitter Use as directed. To test blood sugars 4 times a day. Change every 90 days. Dx E11.9 1 Each 3 OneTouch Verio In Vitro Strip (Glucose Blood) TESTING once daily 100 Strip 3 OneTouch Delica Plus [id number] TESTING once daily 100 Each 3 Nitroglycerin 0.4 MG Sublingual Tablet Sublingual (Nitrostat) Place 1 Tab under the tongue every 5 minutes as needed for Pain, Chest. up to 3 doses in 15 minutes 25 Tab 11 MEDICAL INSTRUCTIONS Please de-access patient's port. Please flush with 10 mL of NS, followed by 500 units (5 mL) of heparin. 1 Each N/A Docusate Sodium 100 MG Oral Capsule (Colace) TAKE 1 CAPSULE BY MOUTH ONCE DAILY (Patient not taking: Reported on 12/06/2022) 68 Cap 0 Dexcom G6 Sensor use as directed to test blood sugar 4 times daily. change sensor every 10 days3 Each 3 Disposable Brief X-Large Use as directed 60 Each 5 BD Pen Needle Mini U/F 31G X 5 MM (Insulin Pen Needle) USE TO INJECT INSULIN FOUR TIMES DAILY. 400 Each 3 Silver sulfADIAZINE 1 % External Cream (Silvadene) Apply topically to affected area daily . Apply to wound 85 g 11 Macrobid 100 MG Oral Capsule Take 1 Capsule by mouth in the morning and 1 Capsule before bedtime. With food until gone. (Patient not taking: Reported on 12/09/2022) 10 Capsule 0 Benzonatate 200 MG Oral Capsule Take 1 Capsule by mouth 3 times a day as needed for Cough. 30 Capsule 1 Fluconazole 100 MG Oral Tablet (Diflucan) Take 1 Tablet by mouth in the morning for 21 days. two tablets on first day, then one tablet once a day for 3 weeks.. 22 Tablet 0 Current Facility-Administered Medications Medication Dose Route Frequency Provider Last Rate Last Admin Albuterol Sulfate (Proventil) (5 MG/ML) 0.5% *conc* inhalation solution 2.5 mg 2.5 mg NebulizerZAK Puri Albuterol Sulfate (Proventil) (2.5 MG/3ML) 0.083% inhalation solution 2.5 mg 2.5 mg Nebulizer PRN ZAK Connolly OBJECTIVE: BP 114/70 | Pulse 71 | Temp 36.3 C (97.3 F) | Resp 18 | SpO2 92% Vitals reviewed and is normotensive afebrile and not tachycardic General: No acute distress. Neuro: Alert Pleasant & interactive. Respiratory: Good inspiratory effort, no labored breathing. HEENT: Conjunctivae appear clear. No swelling noted [...] of separately billed services. Vanita Dunn MD [address] [address] There are no Patient Instructions on file for this visit. documented in this encounter Nursing Notes * Preethi Colón LPN - 12/26/2022 1:57 PM EDT Follow up. Pt not sure what she is following up on. Would like an order for work on her power chair documented in this encounter Plan of Treatment Upcoming Encounters Date Type Specialty Care Team Description 12/26/2022 Office Visit Hematology Oncology Kenya Gonzalez CRNP [address] [place] [address] 01/04/2023 Hem/Onc Treatment Hematology Oncology Maryellen, Chair 11 Hem Onc [address] [place] [address] 01/04/2023 Office Visit Pharmacy Pharmacist1, [facility] [address] [facility] [place], [place] [address] 01/11/2023 Home Visit [facility] July Poe, RN [address] [place] [address] 01/23/2023 Home Visit [facility] Aleyda Campos PA-C [address] [place] [address] 01/25/2023 Hem/Onc Treatment Hematology Oncology [place], Chair 11 Hem Onc [address] [facility] [place] [address] 03/01/2023 PulmDiagnostic Pulmonary Function [place], [address] [place] [address] 03/01/2023 Office Visit Pulmonary Vivian Phillips CRNP [address] [place] [address] 03/08/2023 Office Visit Gastroenterology Lyssa Stout CRNP [address] [place] [address] Scheduled Procedures Name Priority Associated Diagnoses Date/Ti [...] this encounter Medical Devices Implanted Type Area Mat Cleaning Machine Operator Device Identifier Shelf Expiration Date Model / Serial / Lot Microtech Sure Clip Implanted:Qty: 2 on 06/03/2020 by Janis Hatch DO at OR [facility] Clip N/A: Colon 04/21/2022 [facility]-F-26-2 35-C-R / / [id number] documented as of this encounter Visit Diagnoses Diagnosis Wheelchair dependent- Primary Wheelchair dependence Obesity, morbid (more than 100 lbs over ideal weight or BMI > 40) (HCC) Morbid obesity 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 Functional urinary incontinence Other cerebral palsy (HCC) Impaired mobility and ADLs Mechanical problems with limbs Portal hypertensive gastropathy (HCC) Other specified disorder of stomach and duodenum Other cirrhosis of liver (HCC) documented in this encounter Advance Directives Documents on File Type Date Recorded Patient Networking Administrator Expl anation Advance Directives and Living Will 04/29/2021 ADVANCE DIRECTIVE / LIVING WILL LIVING WILL AND HEALTH CARE POA Power of Valve Steamer 04/29/2021 [facility]OWER [facility] [...] the patient have Health Care Power of Valve Steamer? No Code Status History Code Status Date Activated Date Inactivated Comments Full Code 12/27/2021 2:50 PM 12/27/2021 8:02 PM This order reflects the patients wishes and were consensually agreed upon. Question Answer Comments Discussion of Advance Directives occurred with: Not Discussed Does the patient have a Living Will? No Does the patient have Health Care Power of Valve Steamer? No Full Code 03/31/2021 8:57 PM 04/03/2021 [...] Agents on File Name Relationship Healthcare Agent [facility] Communication Syed Bustos Spouse Emergency Contact Care Teams Clip Baker Relationship Specialty Start Date End Date Vanita Dunn MD [address] [place], [place] [id number] PCP - General Family Medicine 03/16/21 documented as of this encounter
--- OUTSIDE RECORDS SUMMARY | 2023-05-10 16:53 | External Medical Summary | Summary of Care ---
Author Name Unknown Organization [facility] Address [address] [facility] [place] [address] Phone [phone] Care Team Providers Care Metal Products Viewer Name Role Phone Vanita Dunn MD Primary Care Provid er Reason for Visit * Reason Onset Date Comments Fax 12/29/2022 Encounter Details Date Type Department Care Team Description 12/29/2022 Telephone [facility] [address] [place] [address] Vanita Dunn MD [address] [place] [address] Fax Allergies Active Allergy Reactions Severity Noted Date Comments Adhesive Tape Itching 04/29/2020 Penicillins Rash 02/12/2008 Penicillin G 07/20/2018 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 documented as of this encounter (statuses as of 12/29/2022) Medications Medication Sig Dispensed Refills Start Date End Date Status nystatin (NYSTOP) 403597 UNIT/GM powder Apply topically to affected area 3 times a day. 60 g 1 10/16/2019 Active Dexcom G6 Downstream Biomanufacturing Technician Device Use as directed. To test blood sugars 4 times a day Dx E11.9 1 Each 0 09/14/2020 Active Dexcom G6 Transmitter Use as directed. To test blood sugars 4 times a day. Change every 90 days. Dx E11.9 1 Each 3 09/14/2020 Active OneTouch Verio In Vitro Strip (Glucose Blood) TESTING once daily 100 Strip 3 10/29/2020 Active [facility] Plus [id number] TESTING once daily 100 Each 3 10/29/2020 [...] pain 01/24/2012 01/17/2017 Genetic Sleep Disorder Research Other*[id number] 05/13/2011 04/07/2016 Obstructive sleep apnea 01/18/2011 12/27/19 [...] (Prevnar) 05/02/2019 Pneumococcal Conjugate Vacci ne, 20-valent ([id number]) 10/21/2022 Pneumococcal Polysaccharide PPV23 (Pneumovax) 06/01/2010 Seasonal [...] Miscellaneous Notes * Telephone Encounter - THAD Page - 12/29/2022 9:16 AM EDT Received. Home Care notified. 12/29/2022 * Telephone Encounter - THAD Bruner - 12/29/2022 8:54 AM EDT Received a call asking if fax was received by office. Name/Company sending fax: [facility] Delivered What fax is pertaining to: Incontinence supplies order form Date(s) they sent request: 12/26/2022 Verified fax number they are sending to is correct (Y or N): Yes Callback Number for the clinic to call to verified if fax was received: [phone] documented in this encounter Plan of Treatment Upcoming Encounters Date Type Specialty Care Team Description 01/04/2023 Hem/Onc Treatment Hematology Oncology [place], Chair [address] [place] [address] 01/04/2023 Office Visit Pharmacy Pharmacist1, [facility] [address] [facility], [place] [address] 01/11/2023 Home Visit [facility] July Poe, RN [address] [place] [address] 01/23/2023 Home Visit [facility] Aleyda Campos PA-C [address] [place] [address] 01/25/2023 Hem/Onc Treatment Hematology Oncology [place], Chair 11 Hem Onc [facility] [address] [facility], [place] [address] 03/01/2023 PulmDiagnostic Pulmonary Function [place], [address] [place] [address] 03/01/2023 Office Visit Pulmonary Vivian Phillips CRNP [address] [place] [address] 03/08/2023 Office Visit Gastroenterology Lyssa Stout CRNP [address] [place] [address] 06/27/2023 Office Visit Hematology Oncology Tono Sanchez MD [address] [facility], [place] [address] Scheduled Procedures Name Priority Associated Diagnoses Date/Ti [...] encounter Medical Devices Implanted Type Area New Vehicle Sales Consultant Device Identifier Shelf Expiration Date Model / Serial / Lot Microtech Sure Clip Implanted:Qty: 2 on 06/03/2020 by Janis Hatch, DO at OR [facility] Clip N/A: Colon 04/21/2022 [facility]-F-26-2 35-C-R / / [id number] documented as of this encounter Advance Directives Documents on File Type Date Recorded Patient Division Controller Expl anation Advance Directives and Living Will 04/29/2021 ADVANCE DIRECTIVE / LIVING WILL LIVING WILL AND HEALTH CARE POA Power of Geometry Tutor 04/29/2021 [facility] [...] the patient have Health Care Power of Geometry Tutor? No Code Status History Code Status Date Activated Date Inactivated Comments Full Code 12/27/2021 2:50 PM 12/27/2021 8:02 PM This order reflects the patients wishes and were consensually agreed upon. Question Answer Comments Discussion of Advance Directives occurred with: Not Discussed Does the patient have a Living Will? No Does the patient have Health Care Power of Geometry Tutor? No Full Code 03/31/2021 8:57 PM 04/03/2021 [...] File Name Relationship Healthcare Agent [facility] p Communication Syed Bustos Spouse Emergency Contact Care Teams Metal Products Viewer Relationship Specialty Start Date End Date Vanita Dunn MD [address] [place] [address] PCP - General Family Medicine 03/16/21 documented as of this encounter
--- OUTSIDE RECORDS SUMMARY | 2023-05-10 16:54 | External Medical Summary | Summary of Care ---
Author Name Unknown Organization [facility] Address [address] [facility] [place] [address] Phone [phone] Care Team Providers Care Carbide Powder Processor Name Role Phone Vanita Dunn MD Primary Care Provid er Reason for Visit * Reason Comments IV Therapy Venofer Procedure Labs from port Encounter Details Date Type Department Care Team Description 12/14/2022 Hem/Onc Treatment Hematology/Oncology Treatment, [place] [address] [place] [address] [place], Chair 5 Hem Onc Sc[address] [facility] [place] [id number] Iron deficiency anemia due to chronic blood loss* Allergies Active Allergy Reactions Severity Noted Date Comments Adhesive Tape Itching 04/29/2020 Penicillins Rash 02/12/2008 Penicillin G 07/20/2018 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 documented as of this encounter (statuses as of 12/14/2022) Medications Medication Sig Dispensed Refills Start Date End Date Status nystatin (NYSTOP) 680046 UNIT/GM powder Apply topically to affected area 3 times a day. 60 g 1 10/16/2019 Active Dexcom G6 Research Statistician Device Use as directed. To test blood sugars 4 times a day Dx E11.9 1 Each 0 09/14/2020 Active Dexcom G6 Transmitter Use as directed. To test blood sugars 4 times a day. Change every 90 days. Dx E11.9 1 Each 3 09/14/2020 Active OneTouch Verio In Vitro Strip (Glucose Blood) TESTING once daily 100 Strip 3 10/29/2020 Active [facility] Delica Plus [id number] TESTING once daily 100 Each 3 10/29/2020 [...] TIMES DAILY. 400 Each 3 05/23/2022 Active Linzess 290 MCG Oral Capsule (linaCLOtide) TAKE 1 CAPSULE BY MOUTH ONCE DAILY BEFORE BREAKFAST 90 Capsule 1 06/13/2022 Active Silver sulfADIAZINE 1 % External Cream [...] major depressive disorder, in partial remission ([facility]) TAKE 1 TABLET BY MOUTH DAILY 90 Tablet 0 08/04/2022 Active Furosemide 20 MG Oral Tablet (Lasix) TAKE 1 TABLET BY MOUTH DAILY as needed for lower extremity swelling 90 Tablet 3 09/09/2022 Active Lantus SoloStar 100 UNIT/ML Subcutaneous Solution Pen-injectorIndicat ions:Type 2 diabetes mellitus with hemoglobin A1c goal of less than 8.0% ([facility]) Inject 27 units subcutaneously at bedtime and [...] the morning. 30 Tablet 2 12/09/2022 Active Hospital, Clinic, or Other Facility Administered [...] as of this encounter (statuses as of 12/14/2022) Active Problems Problem Noted Date Hypertensive heart [...] as of this encounter (statuses as of 12/14/2022) Resolved Problems Problem Noted Date Resolved Date [...] pain 01/24/2012 01/17/2017 Genetic Sleep Disorder Research Other*[id number] 05/13/2011 04/07/2016 Obstructive sleep apnea 01/18/2011 12/27/19 [...] as of this encounter (statuses as of 12/14/2022) Immunizations Name Administration Dates Next Due COVID-19 mRNA, LNP-s, No Pre serve, 2-Dose Series (Moderna) 01/05/2022,07/26/2021,12/21/2020,11/09 HEP A - Hepatitis A (Adult > 18 yrs) 09/24/2018, 03/26/2018 Hepatitis B, 20+ yrs 09/24/2018,04/23/2018,03/26 Pneumococcal Conjugate Vacc, 13 Valent (Prevnar) 05/02/2019 Pneumococcal Conjugate Vacci ne, 20-valent ([id number]) 10/21/2022 Pneumococcal Polysaccharide PPV23 (Pneumovax) 06/01/2010 Seasonal [...] Sign Reading Time Taken Comments Blood Pressure 114/50 12/14/2022 3:23 PM EDT Pulse - - Temperature - - Respiratory Rate - - Oxygen Saturation - [...] as of this encounter Nursing Notes * Dulce Montes De Oca RN - 12/14/2022 4:46 PM EDT Goals: Patient will remain free from injury. Possible barriers to meeting goals: wheelchair bound Stability of the patient: Moderately unstable - medium risk of patient condition declining or worsening Summary regarding today's goals: Met: Pt remained free of injury during treatment today. Patient tolerated treatment well and was discharged in stable condition. Coverage by Elizabeth Okeefe RN. * Renetta Schuler RN - 12/14/2022 3:39 PM EDT Pt presents to clinic in own power w/c; directed to chair 10 pod for treatment. Pt has no acute concerns to report at this time. VAD accessed; specimen collected for ordered labs. Venofer infusing. Safety and Risk for Injury Patient will remain free from injury. Ensure appropriate safety devices are available. Provide and maintain safe environment. documented in this encounter Plan of Treatment Upcoming Encounters Date Type Specialty Care Team Description 12/16/2022 Home Visit [facility] July Poe RN [address] [place] [address] 12/19/2022 Office Visit Family Medicine [facility] [address] [facility] [address] 12/26/2022 Office Visit Hematology Oncology Kenya Gonzalez CRNP [address] [place] [id number] 12/28/2022 Home Visit [facility] Aleyda Campos PA-C [address] [place] [address] 01/04/2023 Hem/Onc Treatment Hematology Oncology [place], Chair 11 Hem Onc Scen[address] [place] [address] 01/04/2023 Office Visit Pharmacy Pharmacist1, [facility] [address] [place] [address] 01/25/2023 Hem/Onc Treatment Hematology Oncology [place], Chair 11 Hem Onc Sc[address] [place] [address] 03/01/2023 PulmDiagnostic Pulmonary Function [place], [address] [address] 03/01/2023 Office Visit Pulmonary Vivian Phillips CRNP [address] [place] [address] 03/08/2023 Office Visit Gastroenterology Lyssa Stout CRNP [address] [place] [address] Pending Results Name Type Priority Associated Diagnoses Date /Time CBC WITH WBC DIFFERENTIAL Lab STAT Iron deficiency anemia due to chronic blood loss 12/14/2022 3:28 PM EDT FERRITIN Lab STAT Iron deficiency anemia due to chronic blood loss 12/14/2022 3:28 PM EDT CBC Lab STAT Iron deficiency anemia due to chronic blood loss 12/14/2022 3:28 PM EDT DIFFERENTIAL, AUTOMATED Lab STAT Iron deficiency anemia due to chronic blood loss 12/14/2022 3:28 PM EDT Scheduled Procedures Name Priority Associated [...] this encounter Medical Devices Implanted Type Area Dog Groomer Device Identifier Shelf Expiration Date Model / Serial / Lot Microtech Sure Clip Implanted:Qty: 2 on 06/03/2020 by Janis Hatch DO at OR [facility] Clip N/A: Colon 04/21/2022 [facility]-F-26-2 35-C-R / / [id number] documented as of this encounter Visit Diagnoses [...] ONCE PRN Other, Hypersensitivity Reaction, Starting on Mon12/14/22 at 1524, Until [place] 12/15/22 at 1523, For 24 hours EPINEPHrine 1 MG/ML inj 0.3 mg 0.3 mg, Intramuscular, ONCE PRN Other, Hypersensitivity Reaction or Anaphylaxis, Starting on Mon12/14/22 at 1524, Until [place] 12/15/22 at 1523, For 24 hours hEParin 100 UNIT/ML Lock Flush inj 500 Units 500 Units (5 mL), IV Lock, PRN Other, IV Flush, Starting on Mon12/14/22 at 1524, Until [place] 12/15/22 at 1523, For 24 hours, Do not flush if lock, PICC, or central line not in place; IV infusing or unable to flush. Given 12/14/2022 4:46 PM EDT 500 Units Hydrocortisone Sod Suc (PF) (Solu-Cortef) inj 100 mg 100 mg, IV Push, ONCE PRN Other, Hypersensitivity Reaction, Starting on Mon12/14/22 at 1524, Until [place] 12/15/22 at 1523, For 24 hours NSS infusion 500 mL, Intravenous, at 50 mL/hr, CONTINUOUS, Starting on Mon12/14/22 at 1630, Until [place] 12/15/22 at 0229 Start Infusion 12/14/2022 3:24 PM EDT 500 mL 50 mL/hr sodium chloride 0.9 % flush central line 10 mL 10 mL, IV Push, PRN Other, IV Flush, Starting on Mon12/14/22 at 1524, Until [place] 12/15/22 at 1523, For 24 hours, Do not flush if lock, PICC, or central line not in place; IV infusing or unable to flush. Given 12/14/2022 4:46 PM EDT 10 mL Inactive Administered Medications - up to 3 most recent administrations Medication Order MAR Action Action Date Dose Rate Site Iron Sucrose (Venofer) 300 mg in NSS 250 mL ivpb 300 mg, IV Piggyback, ONCE, 1 dose, On Mon12/14/22 at 1700, Administer over 90 Minutes Start Infusion 12/14/2022 3:24 PM EDT 300 mg 166.67 mL/hr documented in this encounter Advance Directives Documents on File Type Date Recorded Patient Sign Fabricator Expl anation Advance Directives and Living Will 04/29/2021 ADVANCE DIRECTIVE / LIVING WILL LIVING WILL AND HEALTH CARE POA Power of Vice President Of Contracts 04/29/2021 [facility] [...] the patient have Health Care Power of Vice President Of Contracts? No Code Status History Code Status Date Activated Date Inactivated Comments Full Code 12/27/2021 2:50 PM 12/27/2021 8:02 PM This order reflects the patients wishes and were consensually agreed upon. Question Answer Comments Discussion of Advance Directives occurred with: Not Discussed Does the patient have a Living Will? No Does the patient have Health Care Power of Vice President Of Contracts? No Full Code 03/31/2021 8:57 PM 04/03/2021 [...] Agents on File Name [facility] Syed Bustos Spouse Emergency Contact Care Teams Carbide Powder Processor Relationship Specialty Start Date End Date Vanita Dunn MD [address] [place] [address] PCP - General Family Medicine 03/16/21 documented as of this encounter
--- OUTSIDE RECORDS SUMMARY | 2023-05-10 16:54 | External Medical Summary | Summary of Care ---
Author Name Unknown Organization [facility] Address [address] [facility] [place] [address] Phone [phone] Care Team Providers Care Online Retailer Name Role Phone Vanita Dunn MD Primary Care Provid er Reason for Visit * Reason Comments Follow Up Restrictive lung dis ease Encounter Details Date Type Department Care Team Description 12/09/2022 Office Visit Pulmonary Medicine, 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 60 g 1 0 Active Dexcom G6 Mold Maker Device Use as directed. To test blood sugars 4 times a day Dx E11.9 1 Each 0 1 Active Dexcom G6 Transmitter Use as directed. To test blood sugars 4 times a day. Change every 90 days. Dx E11.9 1 Each 3 1 Active OneTouch Verio In Vitro Strip (Glucose Blood) TESTING once daily 100 Strip 3 1 Active OneTouch Delica Plus [id number] TESTING once daily 100 Each 3 1 [...] before bedtime. 360 Tablet 1 3 Active Lactulose 10 GM/15ML Oral Solution (Constulose) TAKE 30G (45ML) BY MOUTH 3 TIMES DAILY 1200 mL 0 3 Active Gabapentin 300 MG Oral Capsule (Neurontin)Indicat [...] TWICE DAILY 180 Tablet 0 3 Active Fluticasone-Salmet jayme 250-50 MCG/ACT Inhalation Aerosol [...] 2 3 Active Benzonatate 200 MG Oral CapsuleIndications :Bronchitis, complicated Take 1 Capsule by mouth 3 times a day as needed for Cough. 30 Capsule 1 3 12/13/19 23 Discontinue d(Refill) Fluconazole 150 MG Oral Tablet (Diflucan) Take 1 Tablet by mouth in the morning for 3 days. 3 Tablet 0 3 12/10/19 23 Hospital, Clinic, or Other Facility Administered Medication Ordered Dose Route Frequency Start Date End Date Status Albuterol Sulfate (Proventil) (5 MG/ML) 0.5% *conc* inhalation solution 2.5 mgIndications:Mode rate persistent asthma without complication 2.5 mg NEBULIZER PRN 12/09/2022 12/09/2023 Active Albuterol Sulfate (Proventil) (2.5 MG/3ML) 0.083% inhalation solution 2.5 mgIndications:Mode rate persistent asthma without complication 2.5 mg NEBULIZER PRN 12/09/2022 12/09/2023 Active Albuterol Sulfate (Proventil) (2.5 MG/3ML) 0.083% inhalation [...] pain 01/24/2012 01/17/2017 Genetic Sleep Disorder Research Other*[id number] 05/13/2011 04/07/2016 Obstructive sleep apnea 01/18/2011 12/27/19 [...] (Prevnar) 05/02/2019 Pneumococcal Conjugate Vacci ne, 20-valent ([id number]) 10/21/2022 Pneumococcal Polysaccharide PPV23 (Pneumovax) 06/01/2010 Seasonal [...] Sign Reading Time Taken Comments Blood Pressure 128/86 12/09/2022 1:09 PM EDT Pulse 75 12/09/2022 1:09 PM EDT Temperature 36.9 C (98.5 F) 12/09/2022 1:09 PM ED T Respiratory Rate 16 12/09/2022 1:09 PM EDT Oxygen Saturation 96% 12/09/2022 1:09 PM EDT Inhaled Oxygen Concentration - - Weight 113.4 kg (250 lb) 12/09/2022 1:09 PM EDT Height 149.9 cm (4' 11") 12/09/2022 1:09 PM EDT Body Mass Index 50.49 12/09/2022 1:09 PM EDT documented in this encounter Functional Status [...] of this encounter Progress Notes * ZAK Connolly - 12/09/2022 1:30 PM EDT [facility] PULMONARY PROGRESS NOTE Shaina Bustos is a(n) 67 year old female presents for multifactorial SOB, RLD, asthma, obesity, CP (wheelchair bound), chronic hypercarbic respiratory failure with NIV. Other significant PMH type 2 diabetes, acquired hypothyroidism, dyslipidemia, esophageal varices, chronic diastolic heart failure, hypertension, portal hypertensive gastropathy, Thompson, vitamin-D deficiency, GERD, degenerative disc disease, chronic pain, iron deficiency anemia, wheelchair dependent, depression, anxiety. Last seen 03/2022, by Dr. Marquez. Noted trouble with NIV at this time-- trouble with mask fit. Wearing 8 hours a night. requested ABG and PFTs and bugle pressures. She follows with sleep medicine in regards to THAD. HPI: Today, reports she is at her baseline. Coughing spells at times. She is accompanied by her and today's visit. She confirms coughs She confirms sputum, but usually unable to produce due to her mobility issues (she is wheelchair bound). She cannot properly use a flutter device without assistance. One time was dark red. Mentions she is bleeding, but unsure where from. She confirms wheezes She denies night time cough or choking episodes Sleeps semi elevated. NIV nightly with [address] Francisco ordered NPO at last visit in August due to c/o headache. reports this is daily She may have hemoptysis She confirms shortness of breath. She has had 0 ER visits/hospitalization and 0 courses of prednisone related to their breathing in the past year She is a never smoker She denies hx of pneumonia Current inhalers are advair 250, prn albuterol (used this morning) via nebulizer, She confirms history of hay fever/seasonal allergies. Occasional bloody noses- using flonase. Suggested adding nasal saline She confirms acid reflux. Taking PPI 40 mg BID Patient Active Problem List Diagnosis Code Spinal stenosis of lumbar region without neurogenic claudication M48.061 Cerebral palsy (HCC) G80.9 HTN, goal below 130/80 I10 THOMPSON (nonalcoholic steatohepatitis) K75.81 Venous stasis dermatitis of both lower extremities I87.2 DDD (degenerative disc disease), lumbar M51.36 Lymphedema I89.0 Type 2 diabetes mellitus with hemoglobin A1c goal of less than 8.0% ([facility]) E11.9 Vitamin D deficiency E55.9 Restrictive lung disease J98.4 Obesity, morbid (more than 100 lbs over ideal weight or BMI > 40) ([facility]) E66.01 Dyslipidemia E78.5 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 R39.81 Acquired hypothyroidism E03.9 Chronic pain syndrome G89.4 MEDICATION USE AGREEMENT [id number] Cirrhosis of liver (HCC) K74.60 THAD on CPAP G47.33, Z99.89 Wheelchair dependent Z99.3 DM type 2 with diabetic peripheral neuropathy ([facility]) E11.42 Primary insomnia F51.01 Impaired mobility and ADLs Z74.09, Z78.9 Gastroesophageal reflux disease K21.9 Fibromyalgia M79.7 Iron deficiency anemia due to chronic blood loss D50.0 Esophageal varices (HCC) I85.00 Portal hypertensive gastropathy (HCC) K76.6, K31.89 Chronic diastolic (congestive) heart failure (HCC) I50.32 Pancytopenia (HCC) D61.818 Major depressive disorder, recurrent, moderate (HCC) F33.1 Generalized anxiety disorder F41.1 Hypertensive heart failure (HCC) I11.0 Past Medical History: Diagnosis Date Anemia Anxiety [...] Hypertensive heart disease with congestive heart failure ([facility]) 04/29/2022 More specified code listed on PL I13.0 Hypothyroidism Intermittent asthma with reliever use up to twice per week 01/09/2013 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 12/27/2010 Lymphedema 03/11/2013 MEDICATION USE AGREEMENT 03/27/2012 03/27/12 Myalgia and myositis 03/27/2012 THOMPSON (nonalcoholic steatohepatitis) 05/02/2012 Neuropathy Other specified infantile cerebral palsy Oxygen dependent 04/08/2019 Primary insomnia 04/04/2019 Recurrent major depressive disorder, in partial remission ([facility]) 04/04/2019 More recent Dx noted on PL Restrictive lung disease 12/2014 Sleep apnea CPAP Sleep apnea, obstructive Sleep disturbance 01/24/2012 Type 2 diabetes mellitus with hemoglobin A1c goal of less than 8.0% ([facility]) 09/26/2013 ICD-10 update of inactive term UTI (urinary tract infection) 01/27/2012 Noted in 2011 historical Venous insufficiency 01/09/2009 duplicate Past Surgical History: Procedure Laterality Date BONE DEBRIDEMENT, FIRST 20 CM2 Right 04/16/2020 DEBRIDEMENT SKIN SUBCUTANEOUS TISSUE MUSCLE AND BONE performed by Josh Vazquez MD at OR [facility] DELIVERY 04/20/1982 COLONOSCOPY 04/21/2009 repeat in 10 years COLONOSCOPY, DIAGNOSTIC (RECTUM) 10/04/2016 normal bx, repeat 10 yrs/[facility] COLONOSCOPY, DIAGNOSTIC (RECTUM) N/A 06/03/2020 internal hemorrhoids/biopsies show adenomatous polyps/recall 5 years/COLONOSCOPY FLEXIBLE PROXIMAL DIAGNOSTIC performed by Janis Hatch DO at OR [facility] COLONOSCOPY, DIAGNOSTIC (RECTUM) 03/17/2020 poor prep / [facility] DENTAL SURGERY PROCEDURE NEC wisdom teeth x 4 DILATION AND CURETTAGE (D&C) EGD, FLEXIBLE, DIAGNOSTIC 10/04/2016 gastritis/[facility] EGD, FLEXIBLE, DIAGNOSTIC 01/11/2018 eso varices, retained food, repeat 1 yr/[facility] EGD, FLEXIBLE, DIAGNOSTIC N/A 06/03/2020 severe erosive esophagitis/non-bleeding grade II esophageal varices/gastritis/biopsies show inflammatory changes/repeat 3-4 months/ESOPHAGOGASTRODUODENOSCOPY (EGD), FLEXIBLE, TRANSORAL, DIAGNOSTIC per formed by Janis Hatch DO at OR [facility] EGD, FLEXIBLE, DIAGNOSTIC 11/27/2019 eso varices, portal hypertensive gastropathy, gastritis / [facility] EGD, FLEXIBLE, DIAGNOSTIC N/A 08/05/2020 large amount of food in stomach/repeat 1.5 years/ESOPHAGOGASTRODUODENOSCOPY (EGD), FLEXIBLE, TRANSORAL, DIAGNOSTIC performed by Janis Hatch DO at OR [facility] EGD, FLEXIBLE, DIAGNOSTIC N/A 03/10/2021 ESOPHAGOGASTRODUODENOSCOPY (EGD), FLEXIBLE, TRANSORAL, DIAGNOSTIC performed by Kris Blankenship MD at ENDOSCOPY [facility] HYSTEROSCOPY W/BIOPSY AND/OR POLYPECTOMY W/WO D&C N/A 12/27/2021 HYSTEROSCOPY WITH BIOPSY AND/OR POLYPECTOMY WITH OR WITHOUT D&C performed by Concetta Khan MD at OR [facility] HYSTEROSCOPY W/BIOPSY AND/OR POLYPECTOMY W/WO D&C N/A 02/14/2022 HYSTEROSCOPY WITH BIOPSY AND/OR POLYPECTOMY WITH OR WITHOUT D&C performed by Concetta Khan MD at OR [facility] INSERT INTRAUTERINE DEVICE (IUD) N/A 02/14/2022 INSERTION OF INTRAUTERINE DEVICE performed by Concetta Khan MD at OR [facility] IR VENOUS ACCESS MEDIPORT 10/05/2020 PELVIS/HIP JOINT SURGERY NEC teenager aid in walking REMOVE CERVIX CONE W/LOOP ELECTRODE N/A 12/27/2021 LOOP ELECTROSURGERY EXCISION PROCEDURE performed by Concetta Khan MD at OR [facility] REPAIR/GRAFT ACHILLES TENDON age 40 aid in walking Allergies: Adhesive tape, Pcn [penicillins], Penicillin g, and Perflutren protein a microsph Current Outpatient Medications Medication Sig Dispense Refill nystatin (NYSTOP) 630520 UNIT/GM powder Apply topically to affected area 3 times a day. 60 g 1 Dexcom G6 Mold Maker Device Use as directed. To test blood sugars 4 times a day Dx E11.9 1 Each 0 Dexcom G6 Transmitter Use as directed. To test blood sugars 4 times a day. Change every 90 days. Dx E11.9 1 Each 3 OneTouch Verio In Vitro Strip (Glucose Blood) TESTING once daily 100 Strip 3 OneTouch Delica Plus [id number] TESTING once daily 100 Each 3 Nitroglycerin [...] (5 mL) of heparin. 1 Each N/A Fluticasone Propionate 50 MCG/ACT Nasal Suspension (Flonase) [...] subcutaneously in the morning. 45 mL 3 Benzonatate 200 MG Oral Capsule Take 1 Capsule by mouth 3 times a day as needed for Cough. 30 Capsule 1 Pantoprazole Sodium 20 MG Oral Tablet Delayed [...] TABLET BY MOUTH DAILY 30 Tablet 5 Fluconazole 150 MG Oral Tablet (Diflucan) Take 1 Tablet by mouth in the morning for 3 days. 3 Tablet 0 Docusate Sodium 100 MG Oral Capsule (Colace) TAKE 1 CAPSULE BY MOUTH ONCE DAILY (Patient not taking: Reported on 12/06/2022) 68 Cap 0 Macrobid 100 MG Oral Capsule Take 1 Capsule by mouth in the morning and 1 Capsule before bedtime. With food until gone. (Patient not taking: Reported on 12/09/2022) 10 Capsule 0 Current Facility-Administered Medications Medication Dose Route Frequency Provider Last Rate Last Admin Albuterol Sulfate (Proventil) (2.5 MG/3ML) 0.083% inhalation solution 2.5 mg 2.5 mg Nebulizer MALLORY Morales PA-C Albuterol Sulfate (Proventil) (5 MG/ML) 0.5% *conc* inhalation solution 2.5 mg 2.5 mg NebulizerPRShae Morales PA-C Social/occupational/living/family history: Home environment: Lives with and sister in law, and granddaughter, oil heat, pets- 5 cats and 1 dog, no recent renovations Work environment: n/a Exercise: none Alcohol: none Illicit Drugs: none SYSTEMS REVIEW: REVIEW OF SYSTEMS Review of Systems Constitutional: Positive for chills. Negative for fever. HENT: Positive for congestion, nosebleeds and postnasal drip. Negative for sore throat and trouble swallowing. Respiratory: See HPI Cardiovascular: Positive for leg swelling. Negative for chest pain. Neurological: Positive for dizziness and headaches. Negative for syncope. DATA Relevant Lab work: 08/2021: ne rast positive for dust mites, grasses, IGE 75. Latest Reference Range & Units 09/07/22 12:04 10/14/22 11:21 11/23/22 14:12 HGB 12.0 - 15.3 g/dL 10.5 (L) 11.2 (L) 10.3 (L) (L): Data is abnormally low Pulmonary Function Test Results: Performed on 2014: Spirometry revealed evidence of restriction. Measurement of lung Fines is recommended for verification of the restriction, and for quantification of its agreement measurement of TLC. In comparison to testing that was last performed on February 27, 2013, there had been significant reductions in the FVC and FEV1.This interpretation has been electronically signed: JAGDISH MARIEE MD 12/12/2014 02:51:00 PM Chest X-ray: Performed on 10/2022, reviewed report ( no image) from [facility]: Limited inspiration. No activepulmonary infiltrates or pleural effusions seen. Heart appears mildly enlarged. Pulmonary vasculature is normal. A right venous line has its tip near the cavoatrial junction. Chest CTA scan: Performed 2016, report only: Negative for Pulmonary embolism. Thoracic aorta is unremarkable. For in vascular enhances appropriately. No significant filling defects. Mild interstitial changes throughout both fe thoraces. Several small axillary mediastinal and upper abdominal lymph nodes unchangedprior to previous exam in 2015 Performed 2020: FINDINGS LINES AND DEVICES: A right chest wall MediPort catheter terminates in the right atrium. VESSELS: No filling defects in the central, lobar, or proximal segmental pulmonary arteries. Moderate atherosclerotic calcifications of the coronary arteries. LUNGS: Hypoventilatory changes. LARGE AIRWAYS: Patent. PLEURA: No pleural effusion. HEART: Normal in size. No pericardial effusion. LYMPH NODES: Not enlarged. CHEST WALL/SOFT TISSUES: No axillary lymphadenopathy. UPPER ABDOMEN: Nodular liver contour. Paraesophageal and perisplenic varices. BONES: Degenerative osseous changes. IMPRESSION IMPRESSION No central, lobar, or proximal segmental pulmonary emboli Echocardiogram: Performed on 06/2021: Interpretation Summary The study was technically limited. Study was performed with patient seated in motorized wheelchair. Patient has documented allergy to Definity ultrasound contrast. Mild aortic valve stenosis is suggested by technically limited Doppler evaluation. The left ventricular ejection fraction is grossly norm PHYSICAL EXAM: BP 128/86 | Pulse 75 | Temp 36.9 C (98.5 F) | Resp 16 | Ht 1.499 m (4' 11") | Wt 113.4 kg (250 lb) | SpO2 96% | BMI 50.49 kg/m | BSA 2.17 m Limited due to patient's wheelchair bound status Physical Exam Constitutional: General: She is not in acute distress. Appearance: She is obese. She is not ill-appearing. HENT: Nose: Congestion present. Eyes: Extraocular Movements: Extraocular movements intact. Pupils: Pupils are equal, round, and reactive to light. Cardiovascular: Rate and Rhythm: Normal rate. Pulmonary: Effort: Pulmonary effort is normal. No respiratory distress. Breath sounds: No wheezing or rhonchi. Comments: Diminished in bilateral lower lobes, limited posterior assessment Musculoskeletal: Cervical back: Normal range of motion and neck supple. Lymphadenopathy: Cervical: No cervical adenopathy. Neurological: Mental Status: She is alert. Assessment/ Recommendations and Plans: 1. Shortness of breath a. Likely multifactorial: asthma vs CHF vs obesity vs physical deconditioning (as she is sedentary) 2. Moderate, persistent asthma. ACT not taken. a. Continue advair 250 and prn albuterol via nebulizer 3. RLD a. Related to wheelchair bound status as well as CP and Obesity. Review of CT from 2020 doesn't show any interstitial disease b. Update PFTs with lung volumes and DLCO 4. CP a. Wheel chair bound 5. Liver cirrhosis secondary to THOMPSON, Portal hypertension, secondary esophageal varices a. Noted some episodes of dark red production. Discussed if this occurs more often or becomes bright red in color she should be evaluated by emergency medicine for active bleeding 6. Allergic rhinitis a. Continue flonase, add on nasal saline due to epistaxis b. Add on zyrtec due to increased PND-- suspect this may be the cause for recent cough, as she doeshave known allergies to grasses and just started with changes in seasons 7. Chronic respiratory failure with hypercapnia and THAD a. Follows with sleep medicine b. Continue NIV with 2 LPM bled in. NPO ordered by Dr. Maryam villaseñor. Requested patient get ABG she has yet to performe - Follow up in 3-4 months after PFTs, sooner if needed. - All questions and concerns answered to patient's apparent satisfaction. I spent a total of 30-39 minutes (exact time 38 mins) on the date of service in preparation, delivery, and documentation of the care provided to Shaina Bustos excluding any time spent in the performance of separately billed services. ZAK Peterson Pulmonary Medicine, [facility] [address] [place] [id number] (This note was completed using the dictation program Fluency Direct. As such, there may be misspellings, word substitutions, or other variations that should not change the essence of the clinical content of this encounter note.If there is need for further clarification, please direct questions to the provider listed above.) documented in this encounter Nursing Notes * Reyna Vee LPN - 12/09/2022 1:12 PM EDT Chief Complaint Patient presents with Follow Up Restrictive lung disease Interm History/Respiratory Symptoms Cough: persistent cough, non productive Hemoptysis: no Sinus Symptoms: no Hospitalizations: no ED Trips: no Triggers: dry throat Nocturnal: no problems CPAP/BiPAP/O2: CPAP 2l @ night Flu Vaccine: 2021 Pneumovax: 2022 Prevnar: 2019 COVID 19: 11/23/2020, 12/21/2020, 07/26/2021, 01/05/2021 MMRC Dyspnea Scale = 4 (I am too breathless to leave the house or I am breathless when dressing) documented in this encounter Plan of Treatment Upcoming Encounters Date Type Specialty Care Team Description 12/14/2022 Hem/Onc Treatment Hematology Oncology [place], Chair 5 Hem Onc Sc[address] [place] [id number] 12/16/2022 Home Visit [facility] July Poe RN [address] [place] [address] 12/19/2022 Office Visit [facility] [address] [facility] [address] 12/26/2022 [facility] [address] [facility] [place] [id number] 12/28/2022 Home Visit [facility] Aleyda Campos PA-C [address] [place] [address] 01/04/2023 Hem/Onc Treatment Hematology Oncology [place], Chair 11 Hem Onc [address]ery [address] [place] [address] 01/04/2023 Office Visit Pharmacy Pharmacist1, [facility] [address] [place] [address] 01/25/2023 Hem/Onc Treatment Hematology Oncology [place], Chair 11 [address] [place] [address] 03/01/2023 PulmDiagnostic Pulmonary Function [place], [address] [place] [address] 03/01/2023 Office Visit Pulmonary Vivian Phillips CRNP [address] [place] [address] 03/08/2023 Office Visit Gastroenterology Lyssa Stout CRNP [address] [place] [address] Scheduled Orders Name Type Priority Associated Diagnoses Orde r Schedule BLOOD GAS, ARTERIAL Lab Routine Restrictive lung disease Expected: 12/10/2022, Expires: 12/10/2023 SPIROMETRY B/A BRONCHODILATOR Procedures Routine Moderate persistent asthma without complication Expected: 12/10/2022, Expires: 01/09/2024 LUNG VOLUMES (PLETHYSMOGRAPHY) Procedures Routine Moderate persistent asthma without complication Expected: 12/10/2022, Expires: 01/09/2024 DIFFUSION CAPACITY (DLCO) Procedures Routine Moderate persistent asthma without complication Expected: 12/10/2022, Expires: 01/09/2024 Scheduled Procedures Name Priority Associated Diagnoses Date/Ti [...] this encounter Medical Devices Implanted Type Area Manager Enterprise Device Identifier Shelf Expiration Date Model / Serial / Lot [employer] Sure Clip Implanted:Qty: 2 on 06/03/2020 by Janis Hatch DO at OR 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) Other chronic nonalcoholic liver disease Portal hypertension (HCC) Portal hypertension THAD (obstructive sleep apnea) Obstructive sleep apnea (adult) (pediatric) Chronic respiratory failure with hypercapnia (HCC) Chronic respiratory failure Other congenital myopathy (HCC) documented in this encounter Advance Directives Documents on File Type Date Recorded Patient Mold Maker Expl anation Advance Directives and Living Will 04/29/2021 ADVANCE DIRECTIVE / LIVING WILL LIVING WILL AND HEALTH CARE POA Power of Neurology Director 04/29/2021 POWER OF A [facility] [...] the patient have Health Care Power of Neurology Director? No Code Status History Code Status Date Activated Date Inactivated Comments Full Code 12/27/2021 2:50 PM 12/27/2021 8:02 PM This order reflects the patients wishes and were consensually agreed upon. Question Answer Comments Discussion of Advance Directives occurred with: Not Discussed Does the patient have a Living Will? No Does the patient have Health Care Power of Neurology Director? No Full Code 03/31/2021 8:57 PM [...] Syed Bustos Spouse Emergency Contact Care Teams Online Retailer Relationship Specialty Start Date End Date Vanita Dunn MD [address] [place] [address] PCP - General Family Medicine 03/16/21 documented as of this encounter
--- OUTSIDE RECORDS SUMMARY | 2023-05-10 16:54 | External Medical Summary | Summary of Care ---
Author Name Unknown Organization [facility] Address [address] [facility] [place] [address] Phone [phone] Care Team Providers Care Edge Baster Name Role Phone Vanita Dunn MD Primary Care Provid er Encounter Details Date Type Department Care Team Description 12/09/2022 Result Scan Unspecified Department Vivian Phillips CRNP [address] [place] [address] <No scans attached> Allergies Active Allergy Reactions Severity Noted Date Comments Adhesive Tape Itching 04/29/2020 Penicillins Rash 02/12/2008 Penicillin G 07/20/2018 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 documented as of this encounter (statuses as of 12/15/2022) Medications Medication Sig Dispensed Refills Start Date End Date Status nystatin (NYSTOP) 255487 UNIT/GM powder Apply topically to affected area 3 times a day. 60 g 1 10/16/2019 Active Dexcom G6 Education Technician Device Use as directed. To test blood sugars 4 times a day Dx E11.9 1 Each 0 09/14/2020 Active Dexcom G6 Transmitter Use as directed. To test blood sugars 4 times a day. Change every 90 days. Dx E11.9 1 Each 3 09/14/2020 Active OneTouch Verio In Vitro Strip (Glucose Blood) TESTING once daily 100 Strip 3 10/29/2020 Active OneTouch Delica Plus [id number] TESTING once daily 100 Each 3 10/29/2020 [...] as of this encounter (statuses as of 12/15/2022) Active Problems Problem Noted Date Hypertensive heart [...] as of this encounter (statuses as of 12/15/2022) Resolved Problems Problem Noted Date Resolved Date [...] pain 01/24/2012 01/17/2017 Genetic Sleep Disorder Research Other*[id number] 05/13/2011 04/07/2016 Obstructive sleep apnea 01/18/2011 12/27/19 [...] as of this encounter (statuses as of 12/15/2022) Immunizations Name Administration Dates Next Due COVID-19 mRNA, LNP-s, No Pre serve, 2-Dose Series (Moderna) 01/05/2022,07/26/2021,12/21/2020,11/09 HEP A - Hepatitis A (Adult > 18 yrs) 09/24/2018, 03/26/2018 Hepatitis B, 20+ yrs 09/24/2018,04/23/2018,03/26 Pneumococcal Conjugate Vacc, 13 Valent (Prevnar) 05/02/2019 Pneumococcal Conjugate Vacci ne, 20-valent ([id number]) 10/21/2022 Pneumococcal Polysaccharide PPV23 (Pneumovax) 06/01/2010 Seasonal [...] July Poe RN [address] [place] [address] 12/19/2022 Office Visit Family Medicine Vanita Dunn MD [address] [place] [address] 12/26/2022 [facility] [address] [facility] [address] 12/28/2022 [facility] Visit [facility] Aleyda Campos PA-C [address] [place] [address] 01/04/2023 Hem/Onc Treatment Hematology Oncology Maryellen, Chair [address] [place] [address] 01/04/2023 Office Visit Pharmacy Pharmacist1, [facility] [address] [place] [address] 01/25/2023 Hem/Onc Treatment Hematology Oncology Maryellen, Chair [address] [place] [address] 03/01/2023 PulmDiagnostic Pulmonary Function West, Pft [address] [place] [address] 03/01/2023 Office Visit Pulmonary Vivian Phillips CRNP [address] [place] [address] 03/08/2023 Office Visit Gastroenterology yLssa Stout CRNP [address] [place] [address] Scheduled Procedures Name Priority Associated Diagnoses Date/Ti [...] this encounter Medical Devices Implanted Type Area Diabetes Solutions Specialist Device Identifier Shelf Expiration Date Model / Serial / Lot Microtech Sure Clip Implanted:Qty: 2 on 06/03/2020 by Janis Hatch DO at OR [facility] Clip N/A: Colon 04/21/2022 [facility]-F-26-2 35-C-R / / [id number] documented as of this encounter Procedures Procedure Name Priority Date/Time Associated Diagnosis Comments OUTSIDE LAB RESULTS 12/09/2022 documented in this encounter Results * OUTSIDE LAB RESULTS (12/09/2022) 12/09/2022 [facility] documented in this encounter Advance Directives Documents on File Type Date Recorded 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 No Code Status History Code Status Date Activated Date Inactivated Comments Full Code 12/27/2021 2:50 PM 12/27/2021 8:02 PM This order reflects the patients wishes and were consensually agreed upon. Question Answer Comments Discussion of Advance Directives occurred with: Not Discussed Does the patient have a Living Will? No Does the patient have Health Care Power of Farm Marketer? No Full Code 03/31/2021 8:57 PM 04/03/2021 [...] on File Name Relationship [facility] Syed Bustos Spouse Emergency Contact Care Teams Edge Baster Relationship Specialty Start Date End Date Vanita Dunn MD [address] [facility] [place] [address] PCP - General Family Medicine 03/16/21 documented as of this encounter
--- OUTSIDE RECORDS SUMMARY | 2023-05-10 16:54 | External Medical Summary | Summary of Care ---
Author Name Unknown Organization [facility] Address [address] [facility] [place] [address] Phone [phone] Care Team Providers Care Credit Adjuster Name Role Phone Vanita Dunn MD Primary Care Provid er Reason for Visit * Reason Comments [facility]: Maintenance Encounter Details Date Type Department Care Team Description 12/16/2022 Home Visit [facility], [facility] [address] [place] [address] July Poe, RN [address] [place] [address] Allergies Active Allergy Reactions Severity Noted Date Comments Adhesive Tape Itching 04/29/2020 Penicillins Rash 02/12/2008 Penicillin G 07/20/2018 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 documented as of this encounter (statuses as of 12/19/2022) Medications Medication Sig Dispensed Refills Start Date End Date Status nystatin (NYSTOP) 086478 UNIT/GM powder Apply topically to affected area 3 times a day. 60 g 1 10/16/2019 Active Dexcom G6 Twisting Frame Operator Device Use as directed. To test blood sugars 4 times a day Dx E11.9 1 Each 0 09/14/2020 Active Dexcom G6 Transmitter Use as directed. To test blood sugars 4 times a day. Change every 90 days. Dx E11.9 1 Each 3 09/14/2020 Active OneTouch Verio In Vitro Strip (Glucose Blood) TESTING once daily 100 Strip 3 10/29/2020 Active OneTouch Delica Plus [id number] TESTING once daily 100 Each 3 10/29/2020 [...] s:Recurrent major depressive disorder, in partial remission ([facility]) TAKE 1 TABLET BY MOUTH DAILY 90 Tablet 0 08/04/2022 Active Furosemide 20 MG Oral Tablet (Lasix) TAKE 1 TABLET BY MOUTH DAILY as needed for lower extremity swelling 90 Tablet 3 09/09/2022 Active Lantus SoloStar 100 UNIT/ML Subcutaneous Solution Pen-injectorIndicat ions:Type 2 diabetes mellitus with hemoglobin A1c goal of less than 8.0% ([facility]) Inject 27 units subcutaneously at [...] ns: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 -continue lexapro Generalized weakness [...] pain 01/24/2012 01/17/2017 Genetic Sleep Disorder Research Other*[id number] 05/13/2011 04/07/2016 Obstructive sleep apnea 01/18/2011 12/27/19 [...] as of this encounter (statuses as of 12/19/2022) Immunizations Name Administration Dates Next Due COVID-19 mRNA, LNP-s, No Pre serve, 2-Dose Series (Moderna) 01/05/2022,07/26/2021,12/21/2020,11/09 HEP A - Hepatitis A (Adult > 18 yrs) 09/24/2018, 03/26/2018 Hepatitis B, 20+ yrs 09/24/2018,04/23/2018,03/26 Pneumococcal Conjugate Vacc, 13 Valent (Prevnar) 05/02/2019 Pneumococcal Conjugate Vacci ne, 20-valent ([id number]) 10/21/2022 Pneumococcal Polysaccharide PPV23 (Pneumovax) 06/01/2010 Seasonal [...] Reading Time Taken Comments Blood Pressure 116/64 12/16/2022 12:15 PM EDT Pulse 67 12/16/2022 12:15 PM EDT Temperature 36.2 C (97.2 F) 12/16/2022 12:15 PM E DT Respiratory Rate 20 12/16/2022 12:15 PM EDT Oxygen Saturation 99% 12/16/2022 12:15 PM EDT Inhaled Oxygen Concentration - - [...] Progress Notes * July Poe RN - 12/16/2022 4:40 PM EDT [facility] Visit Date: 12/16/2022 Time: 4:41 PM Name: Shaina Bustos : 1955 Current Concerns: Pt seen for return RNCM visit Sitting up in motorized chair upon arrival, getting readying to go to [facility] to have "liver scan" done Pt reports feeling well today Continues to have cough that "comes and goes" Still has not received [email or web address] supplies. Called [email or web address] and they gave information to contact [employer]. Spoke with deepali crowe from [employer] and he reports they do not work with a 3rd green party, however, pt received supplies from them in the past, per [employer] states they have no record of this Called [facility] back and they are to be calling [employer] to get straightened out Waiting aegis operations specialist backHakeem Song came to home during visit to check for bed bugs Last cg in the home told her pipe manufacture supervisor that she wasn't going back because of bed bugs No bugs noted during visit Physical Exam: BP 116/64 | Pulse 67 | Temp 36.2 C (97.2 F) | Resp 20 | SpO2 99% Pain 0 Physical Exam Constitutional: General: She [...] Negative. Respiratory: Positive for cough (chronic - white mucus) and shortness of breath (at baseline). Cardiovascular: Positive for leg swelling. Gastrointestinal: Negative. Genitourinary: Negative. Musculoskeletal: Positive for gait problem. Hematological: Negative. Psychiatric/Behavioral: Negative. Medication Reconciliation: (See medication list) Does patient take medications as ordered: Yes Patient Well Being: PHQ2/9: No questionnaires available. No change in living situation NO falls [facility] Completed this Visit: No. Routine visit and No falls since last visit Advanced Care Planning: No documentation, ACP on file. Patient's Goals of Care: 1. Remain in home 2. Get a time motion analyst cg 3. Get out more Reinforcement/Education: DIABETES: [...] 1. Increased cough with yellow/green sputum 2. Change in ms, confusion 3. No bm in 24 hrs Patient Needs to Remember: Call [facility] at with any new or worsening health concerns or problems, red flag symptoms. Referrals Needed: Other none Follow Up: Is there cellular connectivity/connectivity in the home? Yes Does the patient have internet in the home? Yes Patient encouraged to call the intake phone number for all urgent but not emergent issues. Is the patient new to [facility] within the last 30 days? No, Assess appropriateness for upcoming telehealth visits. Cancel telehealth visits & schedule home visit with care senior project leader/team lead(s)as indicated. Provider is in agreement with Plan of Care: Yes Scheduled to follow up with patient in 2 weeks with provider and 2 weeks after with RNCM. July Poe RN 12/16/2022 4:41 PM documented in this encounter Plan of Treatment Upcoming Encounters Date Type Specialty Care Team Description 12/19/2022 Office Visit Family [facility] [address] [facility] [address] 12/26/2022 Office Visit Hematology Oncology Kenya Gonzalez CRNP [address] [place] [id number] 12/28/2022 Home Visit [facility] Aleyda Campos PA-C [address] [place] [address] 01/04/2023 Hem/Onc Treatment Hematology Oncology Maryellen, Chair [address] [facility] [place] [address] 01/04/2023 Office Visit Pharmacy Pharmacist1, [facility] [address] [facility] [place] [address] 01/11/2023 Home Visit [facility] July Poe RN [address] [place] [address] 01/25/2023 Hem/Onc Treatment Hematology Oncology Maryellen, Chair [address] [facility] [place] [address] 03/01/2023 PulmDiagnostic Pulmonary Function West, Pft [address] [place] [address] 03/01/2023 Office Visit Pulmonary Vivian Phillips CRNP [address] [place] [address] 03/08/2023 Office Visit Gastroenterology Lyssa Stout CRNP [address] [place] [address] Scheduled Procedures Name Priority Associated Diagnoses Date/Ti [...] this encounter Medical Devices Implanted Type Area Transcript Clerk Device Identifier Shelf Expiration Date Model / Serial / Lot Microtech Sure Clip Implanted:Qty: 2 on 06/03/2020 by Janis Hatch DO at OR [facility] Clip N/A: Colon 04/21/2022 [facility]-F-26-2 35-C-R / / [id number] documented as of this encounter Advance Directives Documents on File Type Date Recorded 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 No Code Status History Code Status Date Activated Date Inactivated Comments Full Code 12/27/2021 2:50 PM 12/27/2021 8:02 PM This order reflects the patients wishes and were consensually agreed upon. Question Answer Comments Discussion of Advance Directives occurred with: Not Discussed Does the patient have a Living Will? No Does the patient have Health Care Power of Ux Developer Designer? No Full Code 03/31/2021 8:57 PM 04/03/2021 [...] on File Name Relationship Healthcare Agent [facility] p Communication Syed Bustos Spouse Emergency Contact Care Teams Credit Adjuster Relationship Specialty Start Date End Date Vanita Dunn MD [address] [facility] [place] [id number] PCP - General Family Medicine 03/16/21 documented as of this encounter
--- OUTSIDE RECORDS SUMMARY | 2023-05-10 16:54 | External Medical Summary | Summary of Care ---
Author Name Unknown Organization [facility] Address [address] [facility] [place] [address] Phone [phone] Care Team Providers Care Pbx Mechanic Name Role Phone Vanita Dunn MD Primary Care Provid er Reason for Visit * Reason Onset Date Comments Order Request 12/15/2022 AffloVest Encounter Details Date Type Department Care Team Description 12/15/2022 Telephone Pulmonary Medicine, [facility] [address] [place] [address] Vivian Phillips CRNP [address] [place] [address] Order Request (AffloVest) Allergies Active Allergy Reactions Severity Noted Date Comments Adhesive Tape Itching 04/29/2020 Penicillins Rash 02/12/2008 Penicillin G 07/20/2018 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 documented as of this encounter (statuses as of 12/20/2022) Medications Medication Sig Dispensed Refills Start Date End Date Status nystatin (NYSTOP) 074283 UNIT/GM powder Apply topically to affected area 3 times a day. 60 g 1 10/16/2019 Active Dexcom G6 Computer Networking Instructor Adjunct Device Use as directed. To test blood sugars 4 times a day Dx E11.9 1 Each 0 09/14/2020 Active Dexcom G6 Transmitter Use as directed. To test blood sugars 4 times a day. Change every 90 days. Dx E11.9 1 Each 3 09/14/2020 Active OneTouch Verio In Vitro Strip (Glucose Blood) TESTING once daily 100 Strip 3 10/29/2020 Active OneTouch Delica Plus [id number] TESTING once daily 100 Each 3 10/29/2020 [...] current situation. 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 if a middle or intermediate school principal plan is made -continue lexapro Generalized weakness [...] 012 MEDICATION USE AGREEMENT 03/27/2012 017 Overview: 7/17/12 Chronic rhinitis 03/27/2012 09/13/2021 UTI (urinary tract [...] pain 01/24/2012 01/17/2017 Genetic Sleep Disorder Research Other*[id number] 05/13/2011 04/07/2016 Obstructive sleep apnea 01/18/2011 12/27/19 [...] (Prevnar) 05/02/2019 Pneumococcal Conjugate Vacci ne, 20-valent ([id number]) 10/21/2022 Pneumococcal Polysaccharide PPV23 (Pneumovax) 06/01/2010 Seasonal [...] encounter Miscellaneous Notes * Telephone Encounter - Reyna Vee LPN - 12/15/2022 9:06 AM EDT [facility] rep brought in a script for an AffloVest to be filled out along with a care plan written by their RT who since has quit. Provider filled out the AffloVest script and we faxed OV note, script, andcare plan to [facility]. Received a phone call from Gerri at [facility] requesting that pt have an updated OV regarding the vest. Pt was here 12/09 and did not mention the vest to nurse or provider. Called pt and left a message requesting a call back to see if she would like to move forward with the vest if soshe needs to come in for an OV regarding the vest. documented in this encounter Plan of Treatment Upcoming Encounters Date Type Specialty Care Team Description 12/26/2022 Office Visit Family Medicine Vanita Dunn MD [address] [place] [address] 12/26/2022 Office Visit Hematology Oncology Kenya Gonzalez CRNP [address] [place] [phone] 12/28/2022 Home Visit [facility] Aleyda Campos PA-C [address] [place] [address] 01/04/2023 Hem/Onc Treatment Hematology Oncology Maryellen, Chair [address] [place] [address] 01/04/2023 Office Visit Pharmacy Pharmacist1, [facility] [address] [place] [address] 01/11/2023 Home Visit [facility] July Poe RN [address] [place] [address] 01/25/2023 Hem/Onc Treatment Hematology Oncology Maryellen, Chair [address] [place] [address] 03/01/2023 PulmDiagnostic Pulmonary Function West, Pft [address] [place] [address] 03/01/2023 Office Visit Pulmonary Vivian Phillips CRNP [address] [place] [address] 03/08/2023 Office Visit Gastroenterology Lyssa Stout CRNP [address] [place] [address] Scheduled Procedures Name Priority Associated Diagnoses Date/Ti [...] this encounter Medical Devices Implanted Type Area Building Supplies Salesperson Retail Device Identifier Shelf Expiration Date Model / Serial / Lot Microtech Sure Clip Implanted:Qty: 2 on 06/03/2020 by Janis Hatch DO at OR [facility] Clip N/A: Colon 04/21/2022 [facility]-F-26-2 35-C-R / / [id number] documented as of this encounter Advance Directives Documents on File Type Date Recorded 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 No Code Status History Code Status Date Activated Date Inactivated Comments Full Code 12/27/2021 2:50 PM 12/27/2021 8:02 PM This order reflects the patients wishes and were consensually agreed upon. Question Answer Comments Discussion of Advance Directives occurred with: Not Discussed Does the patient have a Living Will? No Does the patient have Health Care Power of Blankbook Forwarder? No Full Code 03/31/2021 8:57 PM 04/03/2021 [...] Syed Bustos Spouse Emergency Contact Care Teams Pbx Mechanic Relationship Specialty Start Date End Date Vanita Dunn MD [address] [facility] [place] [address] PCP - General Family Medicine 03/16/21 documented as of this encounter
--- OUTSIDE RECORDS SUMMARY | 2023-05-10 16:54 | External Medical Summary | Summary of Care ---
Author Name Unknown Organization [facility] Address [address] [facility] [place] [address] Phone [phone] Care Team Providers Care Curator Horticultural Museum Name Role Phone Vanita Dunn MD Primary Care Provid er Reason for Visit * Reason Onset Date Comments Oxygen Assessment 12/09/2022 Noc ox Encounter Details Date Type Department Care Team Description 12/09/2022 Telephone Pulmonary Medicine, [facility] [address] [place] [address] Vivian Phillips CRNP [address] [place] [address] Oxygen Assessment (Noc ox) Allergies Active Allergy Reactions Severity Noted Date Comments Adhesive Tape Itching 04/29/2020 Penicillins Rash 02/12/2008 Penicillin G 07/20/2018 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 documented as of this encounter (statuses as of 12/14/2022) Medications Medication Sig Dispensed Refills Start Date End Date Status nystatin (NYSTOP) 331336 UNIT/GM powder Apply topically to affected area 3 times a day. 60 g 1 0 Active Dexcom G6 Shrinker Device Use as directed. To test blood sugars 4 times a day Dx E11.9 1 Each 0 1 Active Dexcom G6 Transmitter Use as directed. To test blood sugars 4 times a day. Change every 90 days. Dx E11.9 1 Each 3 1 Active RapidleaTouch Verio In Vitro Strip (Glucose Blood) TESTING once daily 100 Strip 3 1 Active RapidleaTouch Delica Plus [id number] TESTING once daily 100 Each 3 1 [...] current situation. 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 if a extermination supervisor plan is made -continue lexapro Generalized [...] pain 01/24/2012 01/17/2017 Genetic Sleep Disorder Research Other*[id number] 05/13/2011 04/07/2016 Obstructive sleep apnea 01/18/2011 12/27/19 [...] (Prevnar) 05/02/2019 Pneumococcal Conjugate Vacci ne, 20-valent ([id number]) 10/21/2022 Pneumococcal Polysaccharide PPV23 (Pneumovax) 06/01/2010 Seasonal [...] Miscellaneous Notes * Telephone Encounter - ZAK Connolly - 12/09/2022 3:45 PM EDT Noted Thank you * Telephone Encounter - Reyna Vee LPN - 12/09/2022 3:36 PM EDT Attempted to contact pt and she did not call back to get it set up. Advised [facility] to try to contact pt again. * Telephone Encounter - ZAK Connolly - 12/09/2022 2:42 PM EDT Can we see if [facility] ever got the NPO placed by Dr. Francisco in August? Patient still complaining of Headaches documented in this encounter Plan of Treatment Upcoming Encounters Date Type Specialty Care Team Description 12/16/2022 Home Visit [facility] July Poe, RN [address] [place] [address] 12/19/2022 Office Visit Family Medicine Vanita Dunn MD [address] [facility] [place] [address] 12/26/2022 Office Visit Hematology Oncology Kenya Gonzalez CRNP [address] [place] [id number] 12/28/2022 Home Visit [facility] Aleyda Campos PA-C [address] [place] [address] 01/04/2023 Hem/Onc Treatment Hematology Oncology [place], Chair 11 Hem Onc Scenery [address] [place] [address] 01/04/2023 Office Visit Pharmacy Pharmacist1, [facility] [address] [place] [address] 01/25/2023 Hem/Onc Treatment Hematology Oncology [place], Chair 11 Hem Onc Scenery [address] [place] [address] 03/01/2023 PulmDiagnostic Pulmonary Function [place], Pft [address] [place] [address] 03/01/2023 Office Visit Pulmonary Vivian Phillips CRNP [address] [place] [address] 03/08/2023 Office Visit Gastroenterology Lyssa Stout CRNP [address] [place] [address] Scheduled Procedures Name Priority Associated Diagnoses Date/Ti [...] this encounter Medical Devices Implanted Type Area Paint Mixer Device Identifier Shelf Expiration Date Model / Serial / Lot Microtech Sure Clip Implanted:Qty: 2 on 06/03/2020 by Janis Hatch DO at OR [facility] Clip N/A: Colon 04/21/2022 [facility]-F-26-2 35-C-R / / [id number] documented as of this encounter Advance Directives Documents on File Type Date Recorded 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 No Code Status History Code Status Date Activated Date Inactivated Comments Full Code 12/27/2021 2:50 PM 12/27/2021 8:02 PM This order reflects the patients wishes and were consensually agreed upon. Question Answer Comments Discussion of Advance Directives occurred with: Not Discussed Does the patient have a Living Will? No Does the patient have Health Care Power of Rn Transplant? No Full Code 03/31/2021 8:57 PM 04/03/2021 [...] Syed Bustos Spouse Emergency Contact Care Teams Curator Horticultural Museum Relationship Specialty Start Date End Date Vanita Dunn MD [address] [place] [address] PCP - General Family Medicine 03/16/21 documented as of this encounter
--- OUTSIDE RECORDS SUMMARY | 2023-05-10 16:54 | External Medical Summary ---
Author Name Unknown Address Unknown Organization [id number]:[facility] [place] [address] [facility] [place] [address] Laboratory Report Ordering Provider Test Date Status JACOB CORBETT 12/14/2022 15:28:53 Final Observation Date Value Abnormality Reference (Units ) Status SYNC LEUKOCYTES IN BLOOD BY AUTOMATED COUNT 12/14/2022 15:28:53 3.65 Below low normal 4.00-10.80 (K/uL) Final Segs 12/14/2022 15:28:53 59.7 40.0-75.0 (%) Final Lymphs % 12/14/2022 15:28:53 18.1 18.0-42.0 (%) Final Monos 12/14/2022 15:28:53 12.3 Above high normal 1.0-11.0 (%) Final Eosinophils 12/14/2022 15:28:53 8.2 Above high normal 0.0-6.0 (%) Final Basos 12/14/2022 15:28:53 1.4 0.0-2.0 (%) Final Immature Granulocyte, Percent 12/14/2022 15:28:53 0.3 0.0-2.0 (%) Final Absolute Segs 12/14/2022 15:28:53 2.18 1.80-7.70 (K/uL) Final Lymphs, absolute 12/14/2022 15:28:53 0.66 Below low normal 1.00-4.80 (K/ul) Final Monos, Abs 12/14/2022 15:28:53 0.45 0.00-1.10 (K/uL) Final Eos, Abs 12/14/2022 15:28:53 0.30 0.00-0.70 (K/uL) Final Basos, Abs 12/14/2022 15:28:53 0.05 0.00-0.20 (K/uL) Final Immature Granulocytes, Number 12/14/2022 15:28:53 0.01 0.00-0.20 (K/uL) Final Performing Location [facility] [place] [facility] [place] [address] [facility] [address]
--- OUTSIDE RECORDS SUMMARY | 2023-05-10 16:54 | External Medical Summary ---
Author Name Unknown Address Unknown Organization [id number]:[facility] [place] [address] [facility] [address] [place] [address] Laboratory Report Ordering Provider Test Date Status JACOB CORBETT 12/14/2022 15:28:53 Final Observation Date Value Abnormality Reference (Units ) Status WBC, Total 12/14/2022 15:28:53 3.65 Below low normal 4. 00-10.80 (K/uL) Final RBC 12/14/2022 15:28:53 2.89 3.85-5.15 (M/uL) Final Hemoglobin 12/14/2022 15:28:53 10.7 Below low normal 12 .0-15.3 (g/dL) Final HCT 12/14/2022 15:28:53 34.3 Below low normal 36. 0-45.2 (%) Final MCV 12/14/2022 15:28:53 118.7 81.5-97.5 (fL) Final MCH 12/14/2022 15:28:53 37.0 27.0-34.0 (pg) Final MCHC 12/14/2022 15:28:53 31.2 32.0-36.0 (g/dL) Final RDW 12/14/2022 15:28:53 17.6 11.5-15.5 (%) Final Platelets 12/14/2022 15:28:53 66 Below low normal 140 -400 (K/uL) Final MPV 12/14/2022 15:28:53 Final Performing Location [facility] [place] [address] [place] [address]
--- OUTSIDE RECORDS SUMMARY | 2023-05-10 16:54 | External Medical Summary ---
Author Name Unknown Address Unknown Organization K01:LAB[facility]ATORY [facility] - [address] [place] [address] Laboratory Report Ordering Provider Test Date Status JACOB CORBETT 12/14/2022 15:28:53 Final Observation Date Value Abnormality Reference (Units ) Status Ferritin 12/14/2022 15:28:53 87 13-150 (ng /mL) Final Performing Location LABORATORY [facility] - [address] [place] [address]
--- OUTSIDE RECORDS SUMMARY | 2023-05-10 16:55 | External Medical Summary | Summary of Care ---
Author Name Unknown Organization [facility] Address [address] [facility] [place] [address] Phone [phone] Care Team Providers Care Referral Manager Name Role Phone Vanita Dunn MD Primary Care Provid er Reason for Visit * Reason Onset Date Comments [facility]: Acute 12/13/2022 Encounter Details Date Type Department Care Team Description 12/13/2022 Telephone [facility], [facility] [address] [place] [address] [facility], Nurse [address] [place] [address] [facility]: Acute Allergies Active Allergy Reactions Severity Noted Date Comments Adhesive Tape Itching 04/29/2020 Penicillins Rash 02/12/2008 Penicillin G 07/20/2018 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 documented as of this encounter (statuses as of 12/13/2022) Medications Medication Sig Dispensed Refills Start Date End Date Status nystatin (NYSTOP) 680890 UNIT/GM powder Apply topically to affected area 3 times a day. 60 g 1 10/16/2019 Active Dexcom G6 Grain Mill Products Inspector Device Use as directed. To test blood sugars 4 times a day Dx E11.9 1 Each 0 09/14/2020 Active Dexcom G6 Transmitter Use as directed. To test blood sugars 4 times a day. Change every 90 days. Dx E11.9 1 Each 3 09/14/2020 Active ClariticsTouch Verio In Vitro Strip (Glucose Blood) TESTING once daily 100 Strip 3 10/29/2020 Active ClariticsTouch Delica Plus [id number] TESTING once daily 100 Each 3 10/29/2020 [...] as of this encounter (statuses as of 12/13/2022) Active Problems Problem Noted Date Hypertensive heart [...] as of this encounter (statuses as of 12/13/2022) Resolved Problems Problem Noted Date Resolved Date [...] pain 01/24/2012 01/17/2017 Genetic Sleep Disorder Research Other*[id number] 05/13/2011 04/07/2016 Obstructive sleep apnea 01/18/2011 12/27/19 [...] as of this encounter (statuses as of 12/13/2022) Immunizations Name Administration Dates Next Due COVID-19 mRNA, LNP-s, No Pre serve, 2-Dose Series (Moderna) 01/05/2022,07/26/2021,12/21/2020,11/09 HEP A - Hepatitis A (Adult > 18 yrs) 09/24/2018, 03/26/2018 Hepatitis B, 20+ yrs 09/24/2018,04/23/2018,03/26 Pneumococcal Conjugate Vacc, 13 Valent (Prevnar) 05/02/2019 Pneumococcal Conjugate Vacci ne, 20-valent ([id number]) 10/21/2022 Pneumococcal Polysaccharide PPV23 (Pneumovax) 06/01/2010 Seasonal [...] encounter Miscellaneous Notes * Telephone Encounter - Misty Dunn RN - 12/13/2022 4:49 PM EDT Routing to Dr Shae Sanchez for tomorrow's visit. Misty Dunn RN [facility] Intake Triage Coordinator [phone] * Addendum Note - Josh Main PA-C - 12/13/2022 4:31 PM EDTAddended by: JOSH MIAN on: 12/13/2022 04:31 PM Modules accepted: Orders * Telephone Encounter - Josh Main PA-C - 12/13/2022 4:17 PM EDT [facility] Phone Encounter Thank you Misty for your assistance in the care of this patient today. Patient is a 67-year-old female who is currently being treated with chemotherapy as well as a diabetic receiving inhaled is corticosteroids which increases risk of esophageal RO candidiasis. Since the patient has appointment with Oncology tomorrow discuss this with her oncology visit tomorrow. I would be inclined to give the patient Diflucan current trial of thrush This note was prepared with the help of fluency and if there is any mis-spelled words , sentences or something which doesn't represent the content of the subject that could be technical error and please refer to the author for clarification. * Telephone Encounter - Misty Dunn RN - 12/13/2022 2:37 PM EDT [facility] meal miller Acute Call Date: 12/13/2022 Time: 2:44 PM Name: Shaina Bustos : 1955 Caller: Patient HPI: Shaina Bustos is a 67 year old female that is calling [facility] Intake to report : Burning in her throat. Pt states she has burning in her throat, not a sore throat. Onset of sxs 10-15 min prior to this call. Denies GERD. Takes Protonix, which she took prior to the call. Denies bleeding from mouth, throat. Pt has multiple comorbitites including Cirrhosis and esophageal varices. Denies regurg of stomach contents. She states this happened last week as well. Dneiesbloating, belching, or spitting up. Denies fever. She has not needed Zofran-denies nausea BM yesterday. States she is def taking Lactulose. BS today + = 127. Pt just awakened a short time ago so she has not had any food or hydration yet. Pt has Portal hypertensive gastropathy She uses BiPAP at hs. I mentioned possibility of acid reflux but she denies this. Pt has obesity. Pt has peripheral edema - at baseline SOB at baseline. Occasional cough. Pt has no CG but is present. Pt has chermo appt tomorrow. RNCM HV on 12/16/22. Nursing Assessment: Patient's chief complaint for this call: Other, describe Esophageal burning Pain Denies pain Baseline Assessment Able to performing ADLs at baseline (walking, daily tasks, etc.): Yes Chief Complaint is related to a chronic condition: Unknown Patient prescribed oxygen? No. Pt using Bipap at for THAD. Patient has been ordered DME equipment (assistive devices, respiratory equipment, etc.): Yes Describe DME devices: Nebulizer, BIPAP Patient is using DME device as directed: Yes Medication Reconciliation: Received flu shot this season: Unknown Medications ordered/taking to treat reason for call: No Heart failure symptoms: No COPD exacerbation symptoms: No Reinforcement Education: Try Maalox or Mylanta OTC for burning. Take Lactulose as ordered. Eat slow and small amounts: avoid soda. Coffee, tea and all high acid drinks. Avoid hot, spicy foods. [place] foods today. Sip fluids in between mouthfuls. 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 Call 911 if bleeding from the mouth (varices) occurs Do not lie down after eating. Call back instructions provided to patient. Treatment/Plan: (need to report) Level of call: Non-Acute Recommended treatment plan: Clinical advice given over the phone Routing to [facility] for further recommendations. Pt sees hem/onc for chemo tomorrow. RNCM visit 12/16/22. Call [facility] if sxs worsen. Misty Dunn RN [facility] Intake Triage Coordinator [phone] documented in this encounter Plan of Treatment Upcoming Encounters Date Type Specialty Care Team Description 12/14/2022 Hem/Onc Treatment Hematology Oncology [place], Chair 5 Hem Onc Scenery [address] [place] [address] 12/16/2022 Home Visit [facility] July Poe RN [address] [place] [address] 12/26/2022 Office Visit Hematology Oncology Kenya Gonzalez CRNP [address] [place] [address] [place] [id number] 12/28/2022 Home Visit [facility] Aleyda Campos PA-C [address] [address] 01/04/2023 Hem/Onc Treatment Hematology Oncology [place], Chair 11 Hem Onc Scenery [address] [place] [address] 01/04/2023 Office Visit Pharmacy Pharmacist1, [facility] [address] [place] [address] 01/25/2023 Hem/Onc Treatment Hematology Oncology [place], Chair 11 Hem Onc Scenery [address] [place] [address] 03/01/2023 PulmDiagnostic Pulmonary Function [place], P[address] [place] [address] 03/01/2023 Office Visit Pulmonary Vivian Phillips CRNP [address] [place] [address] 03/08/2023 Office Visit Gastroenterology Lyssa Stout CRNP [address] [place] [address] Scheduled Procedures Name Priority Associated Diagnoses Date/Ti [...] this encounter Medical Devices Implanted Type Area Telehealth Nurse Educator Device Identifier Shelf Expiration Date Model / Serial / Lot Microtech Sure Clip Implanted:Qty: 2 on 06/03/2020 by Janis Hatch DO at OR [facility] Clip N/A: Colon 04/21/2022 [facility]-F-26-2 35-C-R / / [id number] documented as of this encounter Advance Directives Documents on File Type Date Recorded Patient Finance Attorney Expl anation Advance Directives and Living Will 04/29/2021 ADVANCE DIRECTIVE / LIVING WILL LIVING WILL AND HEALTH CARE POA Power of Technology Applications Teacher 04/29/2021 POWER OF A [facility] [...] the patient have Health Care Power of Technology Applications Teacher? No Code Status History Code Status Date Activated Date Inactivated Comments Full Code 12/27/2021 2:50 PM 12/27/2021 8:02 PM This order reflects the patients wishes and were consensually agreed upon. Question Answer Comments Discussion of Advance Directives occurred with: Not Discussed Does the patient have a Living Will? No Does the patient have Health Care Power of Technology Applications Teacher? No Full Code 03/31/2021 8:57 PM [...] File Name Relationship Healthcare Agent [facility] Communication Syed Bustos Spouse Emergency Contact Care Teams Referral Manager Relationship Specialty Start Date End Date Vanita Dunn MD [address] [place] [address] PCP - General Family Medicine 03/16/21 documented as of this encounter
--- OUTSIDE RECORDS SUMMARY | 2023-05-10 16:55 | External Medical Summary | Summary of Care ---
Author Name Unknown Organization [facility] Address [address] [facility] [place] [address] Phone [phone] Care Team Providers Care Marketing Lead Name Role Phone Vanita Dunn MD Primary Care Provid er Reason for Visit * Reason Onset Date Comments [facility]: Acute 12/13/2022 Encounter Details Date Type Department Care Team Description 12/13/2022 Telephone [facility], [facility] [address] [place] [address] [facility], Nurse [address] [place] [address] [facility]: Acute Allergies Active Allergy Reactions Severity Noted Date Comments Adhesive Tape Itching 04/29/2020 Penicillins Rash 02/12/2008 Penicillin G 07/20/2018 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 documented as of this encounter (statuses as of 12/14/2022) Medications Medication Sig Dispensed Refills Start Date End Date Status nystatin (NYSTOP) 808327 UNIT/GM powder Apply topically to affected area 3 times a day. 60 g 1 10/16/2019 Active Dexcom G6 Medical Staff Physician Device Use as directed. To test blood sugars 4 times a day Dx E11.9 1 Each 0 09/14/2020 Active Dexcom G6 Transmitter Use as directed. To test blood sugars 4 times a day. Change every 90 days. Dx E11.9 1 Each 3 09/14/2020 Active SonavationTouch Verio In Vitro Strip (Glucose Blood) TESTING once daily 100 Strip 3 10/29/2020 Active SonavationTouch Delica Plus [id number] TESTING once daily 100 Each 3 10/29/2020 [...] pain 01/24/2012 01/17/2017 Genetic Sleep Disorder Research Other*[id number] 05/13/2011 04/07/2016 Obstructive sleep apnea 01/18/2011 12/27/19 [...] (Prevnar) 05/02/2019 Pneumococcal Conjugate Vacci ne, 20-valent ([id number]) 10/21/2022 Pneumococcal Polysaccharide PPV23 (Pneumovax) 06/01/2010 Seasonal [...] encounter Miscellaneous Notes * Telephone Encounter - Tono Sanchez MD - 12/14/2022 7:51 AM EDT She is come in to the infusion room for intravenous iron ( Venofer every 3 weekly) I am not seeing her in the clinic today. Currently she is not on any chemotherapy treatment. ( she has no cancer diagnosis). I see that Diflucan has been started in her case. * Telephone Encounter - Misty Dunn RN - 12/13/2022 4:49 PM EDT Routing to Dr Shae Sanchez for tomorrow's visit. Misty Dunn RN [facility] Intake Triage Coordinator [phone] * Addendum Note - Josh Main PA-C - 12/13/2022 4:31 PM EDTAddended by: JOSH MAIN on: 12/13/2022 04:31 PM Modules accepted: Orders [...] 12/13/2022 2:37 PM EDT [facility] dish cloth inspector Acute Call Date: 12/13/2022 Time: 2:44 PM Name: Shaina Bustos : 1955 Caller: Patient HPI: Shaina Bustos is a 67 year old female that is calling [facility] Intake to report : Burning [...] prescribed oxygen? No. Pt using Bipap at hs for THAD. Patient has been ordered DME [...] high acid drinks. Avoid hot, spicy foods. [place] foods today. Sip fluids in between mouthfuls. 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 Call 911 if bleeding from the mouth (varices) occurs Do not lie down after eating. Call back instructions provided to patient. Treatment/Plan: (need to report) Level of call: Non-Acute Recommended treatment plan: Clinical advice given over the phone Routing to [facility] for further recommendations. Pt sees hem/onc for chemo tomorrow. RNCM visit 12/16/22. Call [facility] if sxs worsen. Misty Dunn RN [facility] Intake Triage Coordinator [phone] documented in this encounter Plan of Treatment Upcoming Encounters Date Type Specialty Care Team Description 12/14/2022 Hem/Onc Treatment Hematology Oncology [place], Chair 5 Hem Onc Scenery [address] [place] [address] 12/16/2022 [facility] Visit [facility] July Poe RN [address] [place] [address] 12/19/2022 Office Visit Family Medicine Vanita Dunn MD [address] [facility] [place] [address] 12/26/2022 Office Visit Hematology Oncology Kenya Gonzalez CRNP [address] [place] [address] 12/28/2022 Home Visit [facility] Aleyda Campos PA-C [address] [place] [address] 01/04/2023 Hem/Onc Treatment Hematology Oncology [place], Chair 11 Hem Onc Scenery [address] [place] [address] 01/04/2023 Office Visit Pharmacy Pharmacist1, [facility] Sp [address] [place] [address] 01/25/2023 Hem/Onc Treatment Hematology Oncology [place], Chair 11 Hem Onc Scenery [address] [place] [address] 03/01/2023 PulmDiagnostic Pulmonary Function [place], [address] [place] [address] 03/01/2023 Office Visit Pulmonary Vivian Phillips CRNP [address] [place] [address] 03/08/2023 Office Visit Gastroenterology Lyssa Stout CRNP [address] [place] [address] Scheduled Procedures Name Priority Associated Diagnoses Date/Ti [...] this encounter Medical Devices Implanted Type Area Giant Tire Repairer Device Identifier Shelf Expiration Date Model / Serial / Lot Microtech Sure Clip Implanted:Qty: 2 on 06/03/2020 by Janis Hatch DO at OR [facility] Clip N/A: Colon 04/21/2022 [facility]-F-26-2 35-C-R / / [id number] documented as of this encounter Advance Directives Documents on File Type Date Recorded Patient Tubing Tester Expl anation Advance Directives and Living Will 04/29/2021 ADVANCE DIRECTIVE / LIVING WILL LIVING WILL AND HEALTH CARE POA Power of Jailer 04/29/2021 POWER [facility] A [facility] [...] the patient have Health Care Power of Jailer? No Code Status History Code Status Date Activated Date Inactivated Comments Full Code 12/27/2021 2:50 PM 12/27/2021 8:02 PM This order reflects the patients wishes and were consensually agreed upon. Question Answer Comments Discussion of Advance Directives occurred with: Not Discussed Does the patient have a Living Will? No Does the patient have Health Care Power of Jailer? No Full Code 03/31/2021 8:57 PM 04/03/2021 [...] Syed Bustos Spouse Emergency Contact Care Teams Marketing Lead Relationship Specialty Start Date End Date Vanita Dunn MD [address] [place] [address] PCP - General Family Medicine 03/16/21 documented as of this encounter
--- OUTSIDE RECORDS SUMMARY | 2023-05-10 16:55 | External Medical Summary | Summary of Care ---
Author Name Unknown Organization [facility] Address [address] [facility] [place] [address] Phone [phone] Care Team Providers Care Scheme Technician Name Role Phone Vanita Dunn MD Primary Care Provid er Reason for Visit * Reason Onset Date Comments [facility]: Acute 12/13/2022 Encounter Details Date Type Department Care Team Description 12/13/2022 Telephone [facility] [address] [place] [address] [facility], Nurse [address] [place] [address] [facility]: Acute Allergies Active Allergy Reactions Severity Noted Date Comments Adhesive Tape Itching 04/29/2020 Penicillins Rash 02/12/2008 Penicillin G 07/20/2018 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 documented as of this encounter (statuses as of 12/13/2022) Medications Medication Sig Dispensed Refills Start Date End Date Status nystatin (NYSTOP) 498918 UNIT/GM powder Apply topically to affected area 3 times a day. 60 g 1 10/16/2019 Active Dexcom G6 Supervisor Shipping Device Use as directed. To test blood sugars 4 times a day Dx E11.9 1 Each 0 09/14/2020 Active Dexcom G6 Transmitter Use as directed. To test blood sugars 4 times a day. Change every 90 days. Dx E11.9 1 Each 3 09/14/2020 Active Revealr Software LimitedTouch Verio In Vitro Strip (Glucose Blood) TESTING once daily 100 Strip 3 10/29/2020 Active Revealr Software LimitedTouch Delica Plus [id number] TESTING once daily 100 Each 3 10/29/2020 [...] of less than 8.0% ([facility]) 35 Units at breakfast, 39 Units [...] for Cough. 30 Capsule 1 12/12/2022 Active Hospital, Clinic, or Other Facility Administered [...] Achilles tendinitis, right leg 04/08/2019 0 09/13/2021 [facility] resident 04/08/2019 05/02/2019 Ambulatory dysfunction 04/04/2019 2 [...] pain 01/24/2012 01/17/2017 Genetic Sleep Disorder Research Other*[id number] 05/13/2011 04/07/2016 Obstructive sleep apnea 01/18/2011 12/27/19 [...] (Prevnar) 05/02/2019 Pneumococcal Conjugate Vacci ne, 20-valent ([id number]) 10/21/2022 Pneumococcal Polysaccharide PPV23 (Pneumovax) 06/01/2010 Seasonal [...] Miscellaneous Notes * Telephone Encounter - Misty uDnn RN - 12/13/2022 2:37 PM EDT [facility] wood mechanist Acute Call Date: 12/13/2022 Time: 2:44 PM Name: Shaina Bustos : 1955 Caller: Patient HPI: Shaina Bustos is a 67 year old female that is calling [facility] Intake to report : Burning [...] high acid drinks. Avoid hot, spicy foods. [place] foods today. Sip fluids in between mouthfuls. 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 Call 911 if bleeding from the mouth (varices) occurs Do not lie down after eating. Call back instructions provided to patient. Treatment/Plan: (need to report) Level of call: Non-Acute Recommended treatment plan: Clinical advice given over the phone Routing to [facility] for further recommendations. Pt sees hem/onc for chemo tomorrow. RNCM visit 12/16/22. Call [facility] if sxs worsen. Misty Dunn RN [facility] Intake Triage Coordinator [phone] documented in this encounter Plan of Treatment Upcoming Encounters Date Type Specialty Care Team Description 12/14/2022 Hem/Onc Treatment Hematology Oncology Maryellen, Chair 5 Hem Onc Scenery [address] [place] [address] 12/16/2022 Home Visit [facility] July Poe RN 132 [place] [address] 12/26/2022 Office Visit Hematology Oncology Kenya Gonzalez CRNP [address] [place] [address] 12/28/2022 Home Visit [facility] Aleyda Campos PA-C [address] [place] [address] 01/04/2023 Hem/Onc Treatment Hematology Oncology [place], Chair 11 Hem Onc Scenery [address] [place] [address] 01/04/2023 Office Visit Pharmacy Pharmacist1, [facility] [address] [place] [address] 01/25/2023 Hem/Onc Treatment Hematology Oncology [place], Chair 11 Hem Onc Scenery [address] [place] [address] 03/01/2023 PulmDiagnostic Pulmonary Function [place], Pft [address] [place] [address] 03/01/2023 Office Visit Pulmonary Vivian Phillips CRNP [address] [place] [address] 03/08/2023 Office Visit Gastroenterology Lyssa Stout CRNP [address] [place] [address] Scheduled Procedures Name Priority Associated Diagnoses Date/Ti [...] this encounter Medical Devices Implanted Type Area Supply Chain Tech Device Identifier Shelf Expiration Date Model / Serial / Lot Microtech Sure Clip Implanted:Qty: 2 on 06/03/2020 by Janis Hatch, DO at OR [facility] Clip N/A: Colon 04/21/2022 [facility]-F-26-2 35-C-R / / [id number] documented as of this encounter Advance Directives Documents on File Type Date Recorded 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 No Code Status History Code Status Date Activated Date Inactivated Comments Full Code 12/27/2021 2:50 PM 12/27/2021 8:02 PM This order reflects the patients wishes and were consensually agreed upon. Question Answer Comments Discussion of Advance Directives occurred with: Not Discussed Does the patient have a Living Will? No Does the patient have Health Care Power of Staffing Manager? No Full Code 03/31/2021 8:57 PM [...] File Name Relationship [facility] Communication Syed Bustos Spouse Emergency Contact Care Teams Scheme Technician Relationship Specialty Start Date End Date Vanita Dunn MD [address] [place], [place] [id number] PCP - General Family Medicine 03/16/21 documented as of this encounter
--- OUTSIDE RECORDS SUMMARY | 2023-05-10 16:55 | External Medical Summary | Summary of Care ---
Author Name Unknown Organization [facility] Address [address] [facility] [place] [address] Phone [phone] Care Team Providers Care Supervisor Real Estate Office Name Role Phone Vanita Dunn MD Primary Care Provid er Reason for Visit * Reason Onset Date Comments [facility]: Acute 12/13/2022 Encounter Details Date Type Department Care Team Description 12/13/2022 Telephone [facility], [facility] [address] [place] [address] [facility], Nurse [address] [place] [address] [facility]: Acute Allergies Active Allergy Reactions Severity Noted Date Comments Adhesive Tape Itching 04/29/2020 Penicillins Rash 02/12/2008 Penicillin G 07/20/2018 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 documented as of this encounter (statuses as of 12/13/2022) Medications Medication Sig Dispensed Refills Start Date End Date Status nystatin (NYSTOP) 112495 UNIT/GM powder Apply topically to affected area 3 times a day. 60 g 1 10/16/2019 Active Dexcom G6 Power Barker Device Use as directed. To test blood sugars 4 times a day Dx E11.9 1 Each 0 09/14/2020 Active Dexcom G6 Transmitter Use as directed. To test blood sugars 4 times a day. Change every 90 days. Dx E11.9 1 Each 3 09/14/2020 Active Camera Service & IntegrationTouch Verio In Vitro Strip (Glucose Blood) TESTING once daily 100 Strip 3 10/29/2020 Active Camera Service & IntegrationTouch Delica Plus [id number] TESTING once daily 100 Each 3 10/29/2020 [...] goal of less than 8.0% ([facility]) 35 Units at breakfast, 39 [...] Achilles tendinitis, right leg 04/08/2019 0 09/13/2021 care home resident 04/08/2019 05/02/2019 Ambulatory dysfunction 04/04/2019 [...] pain 01/24/2012 01/17/2017 Genetic Sleep Disorder Research Other*[id number] 05/13/2011 04/07/2016 Obstructive sleep apnea 01/18/2011 12/27/19 [...] (Prevnar) 05/02/2019 Pneumococcal Conjugate Vacci ne, 20-valent ([id number]) 10/21/2022 Pneumococcal Polysaccharide PPV23 (Pneumovax) 06/01/2010 Seasonal [...] Main PA-C - 12/13/2022 4:17 PM EDT [facility] Command [...] 12/13/2022 2:37 PM EDT [facility] it manager Acute Call Date: 12/13/2022 Time: 2:44 PM [...] present. Pt has chermo appt tomorrow. RNCM on 12/16/22. Nursing Assessment: Patient's chief complaint [...] high acid drinks. Avoid hot, spicy foods. [place]ccre[place] foods today. Sip fluids in between mouthfuls. Service Center Coordinator Protonix time to work. Call 911 if bleeding from the mouth (varices) occurs Do not lie down after eating. Call back instructions provided to patient. Treatment/Plan: (need to report) Level of call: Non-Acute Recommended treatment plan: Clinical advice given over the phone Routing to [facility] for further recommendations. Pt sees hem/onc for chemo tomorrow. RNCM visit 12/16/22. Call [facility] if sxs worsen. Misty Dunn RN [facility] Intake Triage Coordinator [phone] documented in this encounter Plan of Treatment Upcoming Encounters Date Type Specialty Care Team Description 12/14/2022 Hem/Onc Treatment Hematology Oncology [place], Chair 5 Hem Onc Scenery [address] [place] [address] 12/16/2022 Home Visit [facility] July Poe RN [address] [place] [address] 12/26/2022 Office Visit Hematology Oncology Kenya Gonzalez CRNP [address] [place] [address] [place] [address] 12/28/2022 Home Visit [facility] Aleyda Campos PA-C [address] [place] [address] 01/04/2023 Hem/Onc Treatment Hematology Oncology [place], Chair 11 Hem Onc Scenery [address] [place] [address] 01/04/2023 Office Visit Pharmacy Pharmacist1, [facility] Sp [address] [place] [address] 01/25/2023 Hem/Onc Treatment Hematology Oncology [place], Chair 11 Hem Onc Scenery [address] [facility] [address] [place] [address] 03/01/2023 PulmDiagnostic Pulmonary Function [place], Pft [address] [place] [place] [address] 03/01/2023 Office Visit Pulmonary Vivian Phillips CRNP [address] [place] [address] 03/08/2023 Office Visit Gastroenterology Lyssa Stout CRNP [address] [place] [address] Scheduled Procedures Name Priority Associated Diagnoses Date/Ti [...] this encounter Medical Devices Implanted Type Area Bridge Inspector Device Identifier Shelf Expiration Date Model / Serial / Lot Microtech Sure Clip Implanted:Qty: 2 on 06/03/2020 by Janis Hatch DO at OR [facility] Clip N/A: Colon 04/21/2022 [id number]-F-[id number] 35-C-R / / [id number] documented as of this encounter Advance Directives Documents on File Type Date Recorded Patient Dog Warden Expl anation Advance Directives and Living Will 04/29/2021 ADVANCE DIRECTIVE / LIVING WILL LIVING WILL AND HEALTH CARE POA Power of Granite Polisher Apprentice 04/29/2021 POWER OF A [facility] [...] the patient have Health Care Power of Granite Polisher Apprentice? No Code Status History Code Status Date Activated Date Inactivated Comments Full Code 12/27/2021 2:50 PM 12/27/2021 8:02 PM This order reflects the patients wishes and were consensually agreed upon. Question Answer Comments Discussion of Advance Directives occurred with: Not Discussed Does the patient have a Living Will? No Does the patient have Health Care Power of Granite Polisher Apprentice? No Full Code 03/31/2021 8:57 PM [...] File Name Relationship [facility] Syed Bustos Spouse Emergency Contact Care Teams Supervisor Real Estate Office Relationship Specialty Start Date End Date Vanita Dunn MD [address] [place] [address] PCP - General Family Medicine 03/16/21 documented as of this encounter
--- OUTSIDE RECORDS SUMMARY | 2023-05-10 16:56 | External Medical Summary | Summary of Care ---
Author Name Unknown Organization [facility] Address [address] [facility] [place] [address] Phone [phone] Care Team Providers Care Vice President Sales And Marketing Name Role Phone Vanita Dunn MD Primary Care Provid er Reason for Visit * Reason Onset Date Comments [facility]: Maintenance 12/07/2022 Encounter Details Date Type Department Care Team Description 12/07/2022 Telephone [facility], [facility] [address] [place] [address] [facility], Nurse [facility] [address] [place] [address] [facility]: Maintenance Allergies Active Allergy Reactions Severity Noted Date Comments Adhesive Tape Itching 04/29/2020 Penicillins Rash 02/12/2008 Penicillin G 07/20/2018 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 documented as of this encounter (statuses as of 12/07/2022) Medications Medication Sig Dispensed Refills Start Date End Date Status nystatin (NYSTOP) 347745 UNIT/GM powder Apply topically to affected area 3 times a day. 60 g 1 10/16/2019 Active Dexcom G6 Cranberry Farm Supervisor Device Use as directed. To test blood sugars 4 times a day Dx E11.9 1 Each 0 09/14/2020 Active Dexcom G6 Transmitter Use as directed. To test blood sugars 4 times a day. Change every 90 days. Dx E11.9 1 Each 3 09/14/2020 Active OneTouch Verio In Vitro Strip (Glucose Blood) TESTING once daily 100 Strip 3 10/29/2020 Active ElastifileTouch Delica Plus [id number] TESTING once daily 100 Each 3 10/29/2020 [...] than 8.0% ([facility]) Inject 27 units subcutaneously at bedtime and 27 units subcutaneously in the morning. 45 mL 3 10/13/2022 Active Benzonatate 200 MG Oral CapsuleIndications: Bronchitis, complicated Take 1 Capsule by mouth 3 times a day as needed for Cough. 30 Capsule 1 10/18/2022 Active Pantoprazole Sodium 20 MG Oral Tablet [...] Additional Information Patient not taking.Reported on 12/06/2022 Fluconazole 150 MG Oral Tablet (Diflucan) Take 1 Tablet by mouth in the morning for 3 days. 3 Tablet 0 12/06/2022 12/10/19 23 Active Hospital, Clinic, or Other Facility Administered Medication Ordered Dose Route Frequency Start Date End Date Status Albuterol Sulfate (Proventil) (2.5 MG/3ML) 0.083% inhalation solution 2.5 mgIndications:SOB (shortness of breath),Restrictive lung disease 2.5 mg NEBULIZER PRN 04/23/2022 04/23/2023 Active Albuterol Sulfate (Proventil) (5 MG/ML) 0.5% *conc* inhalation solution 2.5 mgIndications:SOB (shortness of breath),Restrictive lung disease 2.5 mg NEBULIZER PRN 04/23/2022 04/23/2023 Active documented as of this encounter (statuses as of 12/07/2022) Active Problems Problem Noted Date Hypertensive heart [...] Last Assessment & Plan: Last hgb 11.2 2/3/23. stable Gastroesophageal reflux disease 04/08/20 19 Fibromyalgia [...] as of this encounter (statuses as of 12/07/2022) Resolved Problems Problem Noted Date Resolved Date [...] pain 01/24/2012 01/17/2017 Genetic Sleep Disorder Research Other*[id number] 05/13/2011 04/07/2016 Obstructive sleep apnea 01/18/2011 12/27/19 [...] as of this encounter (statuses as of 12/07/2022) Immunizations Name Administration Dates Next Due COVID-19 mRNA, LNP-s, No Pre serve, 2-Dose Series (Moderna) 01/05/2022,07/26/2021,12/21/2020,11/09 HEP A - Hepatitis A (Adult > 18 yrs) 09/24/2018, 03/26/2018 Hepatitis B, 20+ yrs 09/24/2018,04/23/2018,03/26 Pneumococcal Conjugate Vacc, 13 Valent (Prevnar) 05/02/2019 Pneumococcal Conjugate Vacci ne, 20-valent ([id number]) 10/21/2022 Pneumococcal Polysaccharide PPV23 (Pneumovax) 06/01/2010 Seasonal [...] encounter Miscellaneous Notes * Addendum Note - Dolly London PA-C - 12/07/2022 6:58 PM EDTAddended by: DOLLY LONDON on: 12/07/2022 06:58 PM Modules accepted: Orders * Telephone Encounter - Dolly London PA-C - 12/07/2022 6:55 PM EDT New order placed for pure wick. Please fax Thank you Qi * Telephone Encounter - Rachel Tomlinson RN - 12/07/2022 9:48 AM EDT Called [facility] spoke with Gilma, she stated they will need a new order to be sent to supplier. Notes in [facility] on 11/30/ July Poe RNCM charted patient needs more Purewick catheters, [id number] and a replacement canister . Rachel Tomlinson RN Finish Mill Operator [facility] * Telephone Encounter - Rachel Tomlinson RN - 12/07/2022 9:26 AM EDT Phone call from patient requesting to speak to July EATONCM. Asked patient what I can help her with , she stated she has a Purwick catheter and needs supplies for same. She does not have any number for supplier and needs more of the " the blue pads that she places between her legs". She is not sure of what the name is for the pad. Patient also stated she is scheduled for a home visit with July on 12/16 at 2:30 but she needs to reschedule because she has an appointment at [facility] at 2:40. Patient rescheduled for 12:30 on and is agreeable. Patient then asked if she is getting a recliner chair from somewhere? Rachel Tomlinson RN Finish Mill Operator [facility] documented in this encounter Plan of Treatment Upcoming Encounters Date Type Specialty Care Team Description 12/08/2022 Office Visit Hematology Oncology Tono Sanchez MD [address] [facility], [place] [address] 12/09/2022 Office Visit Pulmonary Vivian Phillips CRNP [address] [place] [address] 12/09/2022 Imaging Radiology 12/14/2022 Hem/Onc Treatment Hematology Oncology [place], Chair 5 Hem [address]c [address] [address] 12/16/2022 [facility] Visit [facility] July Poe RN [address] [place] [address] 12/28/2022 Home Visit [facility] Dolly London PA-C [address] [place] [address] 01/04/2023 Hem/Onc Treatment Hematology Oncology [place], Chair 11 Hem Onc Scenery [address] [place] [address] 01/04/2023 Office Visit Pharmacy Pharmacist2, [facility] [address] [place] [address] 01/25/2023 Hem/Onc Treatment Hematology Oncology [place], Chair 11 Hem Onc Scenery [address] [place] [address] 02/10/2023 Office Visit Sleep Disorders Love Francisco DO [address] [place] [address] 03/01/2023 PulmDiagnostic Pulmonary Function [place], Pft [address] [place] [address] 03/08/2023 Office Visit Gastroenterology Lyssa Stout CRNP [address] [place] [address] Scheduled Procedures Name Priority Associated Diagnoses Date/Ti [...] 04/05/2021, 0 11/06/2019, 01/09/2019, Additional history exists Mammogram 09/09/2022 09/09/2021, 08/12, 09/02/2019, Additional history exists Yearly B-12 09/15/2022 09/15/2021, 06/12, 04/01/2021, Additional history exists Albumin/Creatinine Ratio 03/30/2023 022, 01/11/2019, 02/03/2017, Additional history exists HgA1C 06/08/2023 12/06/2022, 09/0 04/2022, 01/24/2022, Additional history exists TSH FOR THYROID MEDICATION MONITORING YEARLY 07/06/2023 07/06/2022, 05/19/2022, 06/10/2021, Additional history exists GFR - Renal Function 12/07/2023 12/06/2022, 08/30/2022, 05/19/2022, Additional history exists COLONOSCOPY-EVERY 5 YRS AGES 18-100 06/03/2025 06/03/2020, 06/03/2020, 03/17/2020, Additional history exists Lipid Panel 09/14/2026 09/14/2021, 02/09, 04/05/2019, Additional history exists DTaP,Tdap,and Td Vaccines (3 - Td or Tdap) 05/01/2027 05/01/2017, 05/26/2008 Hepatitis B Completed 09/24/2018, 04/11, 03/26/2018 Influenza Vaccine (FLU shot) Completed , 06/10/2021, 06/01/2020, Additional history exists Pneumococcal Vaccine: 65+ Years Completed 10/21/2022, 05/02/2019, 06/01/2010 GARDASIL-HPV IMMUNIZATION SERIES Aged Out No longer eligible based on patient's age to complete this topic MENINGOCOCCAL (MENACTRA/MENVEO) Aged Out No longer eligible based on patient's age to complete this topic documented as of this encounter Medical Devices Implanted Type Area Development Planner Device Identifier Shelf Expiration Date Model / Serial / Lot Microtech Sure Clip Implanted:Qty: 2 on 06/03/2020 by Janis Hatch DO at OR [facility] Clip N/A: Colon 04/21/2022 [facility]-F-26-2 35-C-R / / [id number] documented as of this encounter Visit Diagnoses Diagnosis Urinary incontinence, unspecified type- Primary documented in this encounter Advance Directives Documents on File Type Date Recorded Patient Air And Water Filler Expl anation Advance Directives and Living Will 04/29/2021 ADVANCE DIRECTIVE / LIVING WILL LIVING WILL AND HEALTH CARE POA Power of Rand Cementer 04/29/2021 POWER OF A [facility] [...] the patient have Health Care Power of Rand Cementer? No Code Status History Code Status Date Activated Date Inactivated Comments Full Code 12/27/2021 2:50 PM 12/27/2021 8:02 PM This order reflects the patients wishes and were consensually agreed upon. Question Answer Comments Discussion of Advance Directives occurred with: Not Discussed Does the patient have a Living Will? No Does the patient have Health Care Power of Rand Cementer? No Full Code 03/31/2021 8:57 PM 04/03/2021 [...] Syed Bustos Spouse Emergency Contact Care Teams Vice President Sales And Marketing Relationship Specialty Start Date End Date Vanita Dunn MD [address] [place] [address] PCP - General Family Medicine 03/16/21 documented as of this encounter
--- OUTSIDE RECORDS SUMMARY | 2023-05-10 16:56 | External Medical Summary | Summary of Care ---
Author Name Unknown Organization [facility] Address [address] [facility] [place] [address] Phone [phone] Care Team Providers Care Carpenter General Name Role Phone Vanita Dunn MD Primary Care Provid er Reason for Visit * Reason Onset Date Comments [facility]: Maintenance 12/07/2022 Encounter Details Date Type Department Care Team Description 12/07/2022 Telephone [facility], [facility] [address] [place] [address] [facility], Nurse [facility] [address] [place] [address] [facility]: Maintenance Allergies Active Allergy Reactions Severity Noted Date Comments Adhesive Tape Itching 04/29/2020 Penicillins Rash 02/12/2008 Penicillin G 07/20/2018 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 documented as of this encounter (statuses as of 12/08/2022) Medications Medication Sig Dispensed Refills Start Date End Date Status nystatin (NYSTOP) 383414 UNIT/GM powder Apply topically to affected area 3 times a day. 60 g 1 10/16/2019 Active Dexcom G6 Technical Sales Advisor Device Use as directed. To test blood sugars 4 times a day Dx E11.9 1 Each 0 09/14/2020 Active Dexcom G6 Transmitter Use as directed. To test blood sugars 4 times a day. Change every 90 days. Dx E11.9 1 Each 3 09/14/2020 Active OneTouch Verio In Vitro Strip (Glucose Blood) TESTING once daily 100 Strip 3 10/29/2020 Active Stax NetworksTouch Delica Plus [id number] TESTING once daily 100 Each 3 10/29/2020 [...] [facility]) 35 Units at breakfast, 39 Units [...] than 8.0% ([facility]) Inject 27 units subcutaneously at bedtime and [...] as of this encounter (statuses as of 12/08/2022) Active Problems Problem Noted Date Hypertensive heart [...] as of this encounter (statuses as of 12/08/2022) Resolved Problems Problem Noted Date Resolved Date [...] pain 01/24/2012 01/17/2017 Genetic Sleep Disorder Research Other*[id number] 05/13/2011 04/07/2016 Obstructive sleep apnea 01/18/2011 12/27/19 [...] as of this encounter (statuses as of 12/08/2022) Immunizations Name Administration Dates Next Due COVID-19 mRNA, LNP-s, No Pre serve, 2-Dose Series (Moderna) 01/05/2022,07/26/2021,12/21/2020,11/09 HEP A - Hepatitis A (Adult > 18 yrs) 09/24/2018, 03/26/2018 Hepatitis B, 20+ yrs 09/24/2018,04/23/2018,03/26 Pneumococcal Conjugate Vacc, 13 Valent (Prevnar) 05/02/2019 Pneumococcal Conjugate Vacci ne, 20-valent ([id number]) 10/21/2022 Pneumococcal Polysaccharide PPV23 (Pneumovax) 06/01/2010 Seasonal [...] Telephone Encounter - Rachel Tomlinson RN - 12/08/2022 8:53 AM EDT Shannon catheter supply order, insurance and demographic's faxed to [employer], , Called , spoke with Dion,order was received and is being processed by team Rachel Tomlinson RN Polysomnography Tech [facility] * Addendum Note - Dolly London PA-C - 12/07/2022 6:58 PM EDTAddended by: DOLLY LONDON on: 12/07/2022 06:58 PM Modules accepted: Orders * Telephone Encounter - Dolly London PA-C - 12/07/2022 6:55 PM EDT New order placed for ric martin. Please fax Thank you Qi * Telephone Encounter - Rachel Tomlinson RN - 12/07/2022 9:48 AM EDT Called [facility] spoke with Gilma, she stated they will need a new order to be sent to supplier. Notes in epic on 11/30/ July ZEPEDA charted patient needs more Purewick catheters, [id number] and a replacement canister . Rachel Tomlinson RN Polysomnography Tech [place] * Telephone Encounter - Rachel Tomlinson RN - 12/07/2022 9:26 AM EDT Phone call from patient requesting to speak to July ZEPEDA. Asked patient what I can help her [...] reschedule because she has an appointment at [facility] at 2:40. Patient rescheduled for 12:30 on and is agreeable. Patient then asked if she is getting a recliner chair from somewhere? Rachel Tomlinson RN Polysomnography Tech [facility] documented in this encounter Plan of Treatment Upcoming Encounters Date Type Specialty Care Team Description 12/08/2022 Office Visit [facility]cology [facility] [address] [facility] [address] 12/09/2022 Office Visit Pulmonary Vivian Phillips CRNP [address] [place] [address] 12/09/2022 Imaging Radiology 12/14/2022 Hem/Onc Treatment Hematology Oncology [place], Chair 5 Hem [place] [place] [address] 12/16/2022 Home Visit [facility] July Poe, RN [address] [place] [address] 12/28/2022 Home Visit [facility] Dolly London PA-C [address] [place] [address] 01/04/2023 Hem/Onc Treatment Hematology Oncology [place], Chair 11 Hem Onc Scenery [address] [place] [address] 01/04/2023 Office Visit Pharmacy Pharmacist2, [facility] [address] [place] [address] 01/25/2023 Hem/Onc Treatment Hematology Oncology [place], Chair 11 Hem Onc Scenery [address] [place] [address] 02/10/2023 Office Visit Sleep Disorders Love Francisco DO [address] [place] [address] 03/01/2023 PulmDiagnostic Pulmonary Function [place], Pft [address] [place] [address] 03/08/2023 Office Visit Gastroenterology Lyssa Stout CRNP [address] [place] [address] Scheduled Procedures Name Priority Associated Diagnoses Date/Ti [...] this encounter Medical Devices Implanted Type Area Auto Customize Painter Device Identifier Shelf Expiration Date Model / Serial / Lot Microtech Sure Clip Implanted:Qty: 2 on 06/03/2020 by Janis Hatch DO at OR [facility] Clip N/A: Colon 04/21/2022 [facility]-F-26-2 35-C-R / / [id number] documented as of this encounter Visit Diagnoses Diagnosis Urinary incontinence, unspecified type- Primary documented in this encounter Advance Directives Documents on File Type Date Recorded Patient Gas Station Attendant Expl anation Advance Directives and Living Will 04/29/2021 ADVANCE DIRECTIVE / LIVING WILL LIVING WILL AND HEALTH CARE POA Power of Technician Assistant 04/29/2021 POWER OF A [facility] [...] the patient have Health Care Power of Technician Assistant? No Code Status History Code Status Date Activated Date Inactivated Comments Full Code 12/27/2021 2:50 PM 12/27/2021 8:02 PM This order reflects the patients wishes and were consensually agreed upon. Question Answer Comments Discussion of Advance Directives occurred with: Not Discussed Does the patient have a Living Will? No Does the patient have Health Care Power of Technician Assistant? No Full Code 03/31/2021 8:57 PM [...] Agents on File Name Relationship Healthcare Agent Romainky navya Communication Syed Bustos Spouse Emergency Contact Care Teams Carpenter General Relationship Specialty Start Date End Date Vanita Dunn MD [address] [place] [address] PCP - General Family Medicine 03/16/21 documented as of this encounter
--- OUTSIDE RECORDS SUMMARY | 2023-05-10 16:56 | External Medical Summary | Summary of Care ---
Author Name Unknown Organization [facility] Address [address] [facility] [place] [address] Phone [phone] Care Team Providers Care Manager Beverage Name Role Phone Vanita Dunn MD Primary Care Provid er Reason for Visit * Reason Onset Date Comments [facility]: Maintenance 12/08/2022 Encounter Details Date Type Department Care Team Description 12/08/2022 Telephone [facility], [facility] [address] [place] [address] [facility], Nurse [facility] [address] [place] [address] [facility]: Maintenance Allergies Active Allergy Reactions Severity Noted Date Comments Adhesive Tape Itching 04/29/2020 Penicillins Rash 02/12/2008 Penicillin G 07/20/2018 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 documented as of this encounter (statuses as of 12/08/2022) Medications Medication Sig Dispensed Refills Start Date End Date Status nystatin (NYSTOP) 620424 UNIT/GM powder Apply topically to affected area 3 times a day. 60 g 1 10/16/2019 Active Dexcom G6 Patternmaker Plastics Device Use as directed. To test blood sugars 4 times a day Dx E11.9 1 Each 0 09/14/2020 Active Dexcom G6 Transmitter Use as directed. To test blood sugars 4 times a day. Change every 90 days. Dx E11.9 1 Each 3 09/14/2020 Active OneTouch Verio In Vitro Strip (Glucose Blood) TESTING once daily 100 Strip 3 10/29/2020 Active amiandoTouch Delica Plus [id number] TESTING once daily 100 Each 3 10/29/2020 [...] [facility]) 35 Units at breakfast, 39 [...] 8.0% ([facility]) Inject 27 units subcutaneously at [...] pain 01/24/2012 01/17/2017 Genetic Sleep Disorder Research Other*[id number] 05/13/2011 04/07/2016 Obstructive sleep apnea 01/18/2011 12/27/19 [...] (Prevnar) 05/02/2019 Pneumococcal Conjugate Vacci ne, 20-valent ([id number]) 10/21/2022 Pneumococcal Polysaccharide PPV23 (Pneumovax) 06/01/2010 Seasonal [...] Telephone Encounter - Michelle Vyas RN - 12/08/2022 9:44 AM EDT Patient calling to see if we got the order for the Purewick catheter replacements. Chart reviewed and order in and sent to [facility]. Michelle Vyas. RN [facility] RN [phone] documented in this encounter Plan of Treatment Upcoming Encounters Date Type Specialty Care Team Description 12/08/2022 Office Visit Hematology Oncology Tono Sanchez MD [address] [place] [address] 12/09/2022 Office Visit Pulmonary Vivian Phillips CRNP [address] [place] [address] 12/09/2022 Imaging Radiology 12/14/2022 Hem/Onc Treatment Hematology Oncology [place], Chair [address] On[address] [place] [address] 12/16/2022 Home Visit [facility] Jluy Poe RN [address] [place] [address] 12/28/2022 Home Visit [facility] Aleyda Campos PA-C [address] [place] [address] 01/04/2023 Hem/Onc Treatment Hematology Oncology [place], Chair 11 Hem Onc Scenery [address] [place] [address] 01/04/2023 Office Visit Pharmacy Pharmacist1, [facility] [address] [place] [address] 01/25/2023 Hem/Onc Treatment Hematology Oncology [place], Chair 11 Hem Onc Scenery [address] [place] [address] 02/10/2023 Office Visit Sleep Disorders Love Francisco DO [address] [place] [address] 03/01/2023 PulmDiagnostic Pulmonary Function [place], Pft [address] [place] [address] 03/08/2023 Office Visit Gastroenterology Lyssa Stout CRNP [address] [place] [address] Scheduled Procedures Name Priority Associated Diagnoses Date/Ti [...] this encounter Medical Devices Implanted Type Area Boat Worker Device Identifier Shelf Expiration Date Model / Serial / Lot Microtech Sure Clip Implanted:Qty: 2 on 06/03/2020 by Janis Hatch, DO at OR [facility] Clip N/A: Colon 04/21/2022 [facility]-F-26-2 35-C-R / / [id number] documented as of this encounter Advance Directives Documents on File Type Date Recorded Patient 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 No Code Status History Code Status Date Activated Date Inactivated Comments Full Code 12/27/2021 2:50 PM 12/27/2021 8:02 PM This order reflects the patients wishes and were consensually agreed upon. Question Answer Comments Discussion of Advance Directives occurred with: Not Discussed Does the patient have a Living Will? No Does the patient have Health Care Power of Check Services Clerk? No Full Code 03/31/2021 8:57 PM 04/03/2021 [...] Relationship Healthcare Agent Relationshi p Communication Syed Juli Spouse Emergency Contact Care Teams Manager Beverage Relationship Specialty Start Date End Date Vanita Dunn MD [address] [place] [address] PCP - General Family Medicine 03/16/21 documented as of this encounter
--- OUTSIDE RECORDS SUMMARY | 2023-05-10 16:56 | External Medical Summary | Summary of Care ---
Author Name Unknown Organization [facility] Address [address] [facility] [place] [address] Phone [phone] Care Team Providers Care Roll Inspector Name Role Phone Vanita Dunn MD Primary Care Provid er Reason for Visit * Reason Onset Date Comments Oxygen Assessment 12/09/2022 Encounter Details Date Type Department Care Team Description 12/09/2022 Telephone Pulmonary Medicine, [facility] [address] [place] [address] Vivian Phillips CRNP [address] [place] [address] Oxygen Assessment Allergies Active Allergy Reactions Severity Noted Date Comments Adhesive Tape Itching 04/29/2020 Penicillins Rash 02/12/2008 Penicillin G 07/20/2018 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 documented as of this encounter (statuses as of 12/09/2022) Medications Medication Sig Dispensed Refills Start Date End Date Status nystatin (NYSTOP) 486352 UNIT/GM powder Apply topically to affected area 3 times a day. 60 g 1 10/16/2019 Active Dexcom G6 Tire Trucker Device Use as directed. To test blood sugars 4 times a day Dx E11.9 1 Each 0 09/14/2020 Active Dexcom G6 Transmitter Use as directed. To test blood sugars 4 times a day. Change every 90 days. Dx E11.9 1 Each 3 09/14/2020 Active OneTouch Verio In Vitro Strip (Glucose Blood) TESTING once daily 100 Strip 3 10/29/2020 Active AccertifyTouch Delica Plus [id number] TESTING once daily 100 Each 3 10/29/2020 [...] goal of less than 8.0% ([facility]) Inject 27 units subcutaneously at [...] Additional Information Patient not taking.Reported on 12/09/2022 Fluconazole 150 MG Oral Tablet (Diflucan) Take 1 Tablet by mouth in the morning for 3 days. 3 Tablet 0 12/06/2022 12/10/19 23 Active Cetirizine HCl 10 MG Oral [...] as of this encounter (statuses as of 12/09/2022) Active Problems Problem Noted Date Hypertensive heart [...] as of this encounter (statuses as of 12/09/2022) Resolved Problems Problem Noted Date Resolved Date [...] 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 if a terminal operations manager plan is made -continue lexapro Generalized [...] pain 01/24/2012 01/17/2017 Genetic Sleep Disorder Research Other*[id number] 05/13/2011 04/07/2016 Obstructive sleep apnea 01/18/2011 12/27/19 [...] as of this encounter (statuses as of 12/09/2022) Immunizations Name Administration Dates Next Due COVID-19 mRNA, LNP-s, No Pre serve, 2-Dose Series (Moderna) 01/05/2022,07/26/2021,12/21/2020,11/09 HEP A - Hepatitis A (Adult > 18 yrs) 09/24/2018, 03/26/2018 Hepatitis B, 20+ yrs 09/24/2018,04/23/2018,03/26 Pneumococcal Conjugate Vacc, 13 Valent (Prevnar) 05/02/2019 Pneumococcal Conjugate Vacci ne, 20-valent ([id number]) 10/21/2022 Pneumococcal Polysaccharide PPV23 (Pneumovax) 06/01/2010 Seasonal [...] back to get it set up. Advised [facility] to try to contact pt again. * Telephone Encounter - ZAK Connolly - 12/09/2022 2:42 PM EDT Can we see if [facility] ever got the NPO placed by Dr. Francisco in August? Patient still complaining of Headaches documented in this encounter Plan of Treatment Upcoming Encounters Date Type Specialty Care Team Description 12/14/2022 Hem/Onc Treatment Hematology Oncology [place], Chair 5 Hem Onc Scenery [address] [place] [address] 12/16/2022 Home Visit [facility] July Poe, RN [address] [place] [address] 12/26/2022 Office Visit Hematology Oncology Kenya Gonzalez CRNP [address] [place] [address] [place] [address] 12/28/2022 Home Visit [facility] Aleyda Campos PA-C [address] [place] [address] 01/04/2023 Hem/Onc Treatment Hematology Oncology [place], Chair 11 Hem Onc Scenery [address] [place] [address] 01/04/2023 Office Visit Pharmacy Pharmacist1, [facility] [address] [place] [address] 01/25/2023 Hem/Onc Treatment Hematology Oncology [place], Chair 11 Hem Onc Scenery [address] [place] [address] 03/01/2023 PulmDiagnostic Pulmonary Function [place], Pft [address] [place] [address] 03/01/2023 Office Visit Pulmonary Vivian Phillips CRNP [address] [place] [address] 03/08/2023 Office Visit Gastroenterology Lyssa Stout CRNP [address] [place] [address] Scheduled Procedures Name Priority Associated Diagnoses Date/Ti [...] this encounter Medical Devices Implanted Type Area Rigging Worker Device Identifier Shelf Expiration Date Model / Serial / Lot Microtech Sure Clip Implanted:Qty: 2 on 06/03/2020 by Janis Hatch DO at OR [facility] Clip N/A: Colon 04/21/2022 [facility]-F-26-2 35-C-R / / [id number] documented as of this encounter Advance Directives Documents on File Type Date Recorded Patient Statue Maker Expl anation Advance Directives and Living Will 04/29/2021 ADVANCE DIRECTIVE / LIVING WILL LIVING WILL AND HEALTH CARE POA Power of Rubber Compounder Formulator 04/29/2021 POWER OF A [facility] [...] patient have Health Care Power of Rubber Compounder Formulator? No Code Status History Code Status Date Activated Date Inactivated Comments Full Code 12/27/2021 2:50 PM 12/27/2021 8:02 PM This order reflects the patients wishes and were consensually agreed upon. Question Answer Comments Discussion of Advance Directives occurred with: Not Discussed Does the patient have a Living Will? No Does the patient have Health Care Power of Rubber Compounder Formulator? No Full Code 03/31/2021 8:57 PM 04/03/2021 [...] Syed Bustos Spouse Emergency Contact Care Teams Roll Inspector Relationship Specialty Start Date End Date Vanita Dunn MD [address] [place] [address] PCP - General Family Medicine 03/16/21 documented as of this encounter
--- OUTSIDE RECORDS SUMMARY | 2023-05-10 16:56 | External Medical Summary | Summary of Care ---
Author Name Unknown Organization [facility] Address [address] [facility] [place] [address] Phone [phone] Care Team Providers Care Electrical Engineering Teacher Name Role Phone Vanita Dunn MD Primary Care Provid er Reason for Visit * Reason Onset Date Comments [facility]: Acute 12/12/2022 Encounter Details Date Type Department Care Team Description 12/12/2022 Telephone [facility], [facility] [address] [facility] [place] [address] Coordinator, [facility] [address] [facility] [place] [address] [facility]: Acute Allergies Active Allergy Reactions Severity Noted Date Comments Adhesive Tape Itching 04/29/2020 Penicillins Rash 02/12/2008 Penicillin G 07/20/2018 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 documented as of this encounter (statuses as of 12/12/2022) Medications Medication Sig Dispensed Refills Start Date End Date Status nystatin (NYSTOP) 638753 UNIT/GM powder Apply topically to affected area 3 times a day. 60 g 1 0 Active Dexcom G6 Doll Eye Setter Device Use as directed. To test blood sugars 4 times a day Dx E11.9 1 Each 0 1 Active Dexcom G6 Transmitter Use as directed. To test blood sugars 4 times a day. Change every 90 days. Dx E11.9 1 Each 3 1 Active AttributorTouch Verio In Vitro Strip (Glucose Blood) TESTING once daily 100 Strip 3 1 Active AttributorTouch Delica Plus [id number] TESTING once daily 100 Each 3 1 [...] With food.. 90 Tablet 3 2 Active Lidocaine-Prilocain e 2.5-2.5 % External [...] Cough. 30 Capsule 1 3 12/13/19 23 Discontinu ed(Refill) Hospital, Clinic, or Other [...] as of this encounter (statuses as of 12/12/2022) Active Problems Problem Noted Date Hypertensive heart [...] as of this encounter (statuses as of 12/12/2022) Resolved Problems Problem Noted Date Resolved Date [...] pain 01/24/2012 01/17/2017 Genetic Sleep Disorder Research Other*[id number] 05/13/2011 04/07/2016 Obstructive sleep apnea 01/18/2011 12/27/19 [...] as of this encounter (statuses as of 12/12/2022) Immunizations Name Administration Dates Next Due COVID-19 mRNA, LNP-s, No Pre serve, 2-Dose Series (Moderna) 01/05/2022,07/26/2021,12/21/2020,11/09 HEP A - Hepatitis A (Adult > 18 yrs) 09/24/2018, 03/26/2018 Hepatitis B, 20+ yrs 09/24/2018,04/23/2018,03/26 Pneumococcal Conjugate Vacc, 13 Valent (Prevnar) 05/02/2019 Pneumococcal Conjugate Vacci ne, 20-valent ([id number]) 10/21/2022 Pneumococcal Polysaccharide PPV23 (Pneumovax) 06/01/2010 Seasonal [...] encounter Miscellaneous Notes * Telephone Encounter - Beckie Squires RN - 12/12/2022 12:02 PM EDT Call to patient had to leave voice message Aware script sent to [facility] pharmacy, pickling machine operator this afternoon and start Use nebulizer up to 4x/day for her cough Contact [facility] regarding deliver of purewick system 24/48 hr follow up calls scheduled Call [facility] with any new or worsening symptoms Frida Squires RN, BSN [facility] Intake Triage Coordinator [phone] * Telephone Encounter - Josh Main PA-C - 12/12/2022 11:21 AM EDT [facility] Remote Medical Command Phone Encounter Thank you Beckie for your assistance in the care of this patient today. Reviewed phone message. I agree w/ the advice offered via phone by our intake nursing team. [facility] A new Rx for the Tessalon Perles was provided. Patient needs to use nebulized treatments as prescribed. Please let me know via encounter or TT message if there is any change Thank you in advance, I appreciate it. Josh Main PA-C * Telephone Encounter - Beckie Squires RN - 12/12/2022 10:53 AM EDT [facility] major donor coordinator Acute Call Date: 12/12/2022 Time: 10:53 AM Name: Shaina Bustos : 1955 Caller: patient and , Syed Relationship to No chief complaint on file. HPI: Shaina Bustos is a 67 year old female who is calling [facility] to report 2 things 1. Her purewick system is not working correctly, needs replacement. Reviewed chart, made her aware this was dealt with on 12/08, provided contact # for [facility] so they can find out when to expect delivery 2. She has increased coughing last couple of days. Occasional clear sputum. Using inhaler as ordered, has NOT been using nebulizer and is out of Amintasalon Perlmelia, would like a refill. O2 @[facility] only, RA sat 97-98%, heart rate in the 60's. No edema noted, No SOB Afebrile Nursing Assessment: Patient's chief complaint for this call: Other, describe Cough, Purewick system not working Pain Denies pain Baseline Assessment Able to performing ADLs at baseline (walking, daily tasks, etc.): Yes Chief Complaint is related to a chronic condition: Unknown Patient prescribed oxygen? Yes, 2lpm at [facility] onlyL/min Patient has been ordered DME equipment (assistive devices, respiratory equipment, etc.): No Medication Reconciliation: Received flu shot this season: Yes Taking medication as ordered: Yes Medications ordered/taking to treat reason for call: No Heart failure symptoms: Unknown COPD exacerbation symptoms: Unknown Reinforcement Education: Use nebulizer up to 4x/day Use Inhaler as ordered Take all medications as ordered Monitor pulse on 1-2x/day and with any increased SOB, call [facility] if < 90% Follow up calls scheduled [facility]ed [facility] [place] Tessalon Perles re-order and any other recommendations Treatment/Plan: Level of call: Non-Acute Recommended treatment plan: Clinical advice given over the phone Call back instructions provided to patient. Frida Squires RN, BSN [facility] Intake Triage Coordinator [phone] documented in this encounter Plan of Treatment Upcoming Encounters Date Type Specialty Care Team Description 12/14/2022 Hem/Onc Treatment Hematology Oncology [place], Chair 5 Hem Onc Scenery [address] [place] [address] 12/16/2022 Home Visit [facility] July Poe RN [address] [place] [address] 12/26/2022 Office Visit Hematology Oncology Kenya Gonzalez CRNP [address] [facility] [place] [address] 12/28/2022 Home Visit [facility] Aleyda Campos PA-C [address] [place] [address] 01/04/2023 Hem/Onc Treatment Hematology Oncology [place], Chair 11 Hem Onc Scenery [address] [place] [address] 01/04/2023 Office Visit Pharmacy Pharmacist1, [facility] [address] [place] [address] 01/25/2023 Hem/Onc Treatment Hematology Oncology [place], Chair 11 Hem Onc Scenery [address] [place] [address] 03/01/2023 PulmDiagnostic Pulmonary Function [place], Pft [address] [place] [address] 03/01/2023 Office Visit Pulmonary Vivian Phillips CRNP [address] [place] [address] 03/08/2023 Office Visit Gastroenterology Lysas Stout CRNP [address] [place] [address] Scheduled Procedures Name Priority Associated Diagnoses Date/Ti [...] this encounter Medical Devices Implanted Type Area Limehouse Worker Device Identifier Shelf Expiration Date Model / Serial / Lot Microtech Sure Clip Implanted:Qty: 2 on 06/03/2020 by Janis Hatch DO at OR [facility] Clip N/A: Colon 04/21/2022 [facility]-F-26-2 35-C-R / / [id number] documented as of this encounter Visit Diagnoses Diagnosis Bronchitis, complicated Bronchitis, not specified as acute or chronic documented in this encounter Advance Directives Documents on File Type Date Recorded Patient Personnel Psychologist Expl anation Advance Directives and Living Will 04/29/2021 ADVANCE DIRECTIVE / LIVING WILL LIVING WILL AND HEALTH CARE POA Power of Outboard Motor Assembler 04/29/2021 [facility] [...] the patient have Health Care Power of Outboard Motor Assembler? No Code Status History Code Status Date Activated Date Inactivated Comments Full Code 12/27/2021 2:50 PM 12/27/2021 8:02 PM This order reflects the patients wishes and were consensually agreed upon. Question Answer Comments Discussion of Advance Directives occurred with: Not Discussed Does the patient have a Living Will? No Does the patient have Health Care Power of Outboard Motor Assembler? No Full Code 03/31/2021 8:57 PM 04/03/2021 [...] Syed Bustos Spouse Emergency Contact Care Teams Electrical Engineering Teacher Relationship Specialty Start Date End Date Vanita Dunn MD [address] [place] [address] PCP - General Family Medicine 03/16/21 documented as of this encounter
--- OUTSIDE RECORDS SUMMARY | 2023-05-10 16:56 | External Medical Summary | Summary of Care ---
Author Name Unknown Organization [facility] Address [address] [facility] [place] [address] Phone [phone] Care Team Providers Care Network Design Architect Name Role Phone Vanita Dunn MD Primary Care Provid er Encounter Details Date Type Department Care Team Description 11/02/2022 Documentation [facility], [place] [address] [place] [address] Janett Reynolds RN [address] [place] [address] Allergies Active Allergy Reactions Severity Noted Date Comments Adhesive Tape Itching 04/29/2020 Penicillins Rash 02/12/2008 Penicillin G 07/20/2018 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 documented as of this encounter (statuses as of 12/13/2022) Medications Medication Sig Dispensed Refills Start Date End Date Status nystatin (NYSTOP) 097475 UNIT/GM powder Apply topically to affected area 3 times a day. 60 g 1 10/16/2019 Active Dexcom G6 Lumber Tailer Device Use as directed. To test blood sugars 4 times a day Dx E11.9 1 Each 0 09/14/2020 Active Dexcom G6 Transmitter Use as directed. To test blood sugars 4 times a day. Change every 90 days. Dx E11.9 1 Each 3 09/14/2020 Active OneTouch Verio In Vitro Strip (Glucose Blood) TESTING once daily 100 Strip 3 10/29/2020 Active OneTouch Delica Plus [id number] TESTING once daily 100 Each 3 10/29/2020 [...] TIMES DAILY 1200 mL 0 10/28/2022 Active documented as of this encounter (statuses [...] situation. 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 if a long lines operator plan is made -continue lexapro Generalized [...] pain 01/24/2012 01/17/2017 Genetic Sleep Disorder Research Other*[id number] 05/13/2011 04/07/2016 Obstructive sleep apnea 01/18/2011 12/27/19 [...] (Prevnar) 05/02/2019 Pneumococcal Conjugate Vacci ne, 20-valent ([id number]) 10/21/2022 Pneumococcal Polysaccharide PPV23 (Pneumovax) 06/01/2010 Seasonal [...] as of this encounter Progress Notes * Janett Reynolds, RN - 11/02/2022 12:30 PM EST [facility] CARE TEAM MEETING DOCUMENTATION 11/02/2022 Patient Name/MRN: Shaina Bustos / [id number] [facility] Sub-Program: Focused Care Management (3-9 months) [facility] Episode Start Date: Noted: 09/16/2021 Participating Care Team Members: Advanced Practitioner/Physician: Aleyda Campos PA-C, Home-Based RN: Daisha Poe RN and EMILE: Kaylee Barakat Driving Problem(s): Heart Failure End Stage Liver Disease Care Plan Current goals: Patient's Goals of Care: Feel better Control Pain Get out of the house more Current [facility] exacerbation plan: [facility] Exacerbation Plan [facility]: [facility] Connectivity Is there cellular connectivity/connectivity in the home? Yes Does the patient have internet in the home? No Patient's Goals of Care: Feel better Go to son's wedding in February Treatment/Plan: Continue meds as prescribed/reviewed Use nebulizer 4x a day as needed Finish entire course of abxs APAP prn for discomfort/fever Cough and deep breathing Low Na, CCD diet Frequent repositioning, every 2 hours CG 5 days a week, 8-9 hrs each day Svetlana lift for transfers Patient's 'Red Flags': 1. S/s of UTI - Fever, confusion 2. Increased SOB 3. Fever [facility] is the agenct for WAIVER> [facility] [phone] Evaluation and Update of Care Plan Evaluation of progress to established goals: Update of Care Plan: closer follow up. Pt needs pulmonology follow up scheduled Patient needs to call [facility] prior to going to ED for changes in health Action Items: Action Item 1: closer follow up with RNCM and Provider Anticipated date of completion: 11/10/11 Responsible care team truck driver: Ashley Cade PA-C Action Item 2: get pt follow up with GI and Pulmonology Anticipated date of completion: 11/09/22 Responsible care team truck driver: Daisha Poe RN Action Item 3: follow up Anticipated date of completion: 11/23 Responsible care team truck driver: Ruam Reynolds RN, CEP Communication and follow up with patient: [facility] Cade, RN documented in this encounter Plan of Treatment Upcoming Encounters Date Type Specialty Care Team Description 12/14/2022 Hem/Onc Treatment Hematology Oncology [place], Chair 5 Hem Onc Scenery [address] [place] [address] 12/16/2022 Home Visit [facility] July Poe RN [address] [place] [address] 12/26/2022 Office Visit Hematology Oncology Kenya Gonzalez CRNP [address] [facility] [place] [address] 12/28/2022 Home Visit [facility] Aleyda Campos PA-C [address] [place] [address] 01/04/2023 Hem/Onc Treatment Hematology Oncology [place], Chair 11 Hem Onc Scenery [address] [place] [address] 01/04/2023 Office Visit Pharmacy Pharmacist1, [facility] [address] [place] [address] 01/25/2023 Hem/Onc Treatment Hematology Oncology [place], Chair 11 Hem Onc Scenery [address] [place] [address] 03/01/2023 PulmDiagnostic Pulmonary Function [place], [address]ft [address] [place] [address] 03/01/2023 Office Visit Pulmonary Vivian Phillips CRNP [address] [place] [address] 03/08/2023 Office Visit Gastroenterology Lyssa Stout CRNP [address] [place] [address] Scheduled Procedures Name Priority Associated Diagnoses Date/Ti [...] this encounter Medical Devices Implanted Type Area Set Up Machinist Device Identifier Shelf Expiration Date Model / Serial / Lot Microtech Sure Clip Implanted:Qty: 2 on 06/03/2020 by Janis Hatch DO at OR [facility] Clip N/A: Colon 04/21/2022 [facility]-F-26-2 35-C-R / / [id number] documented as of this encounter Additional Health Concerns Infection Onset Date Last Indicated Resolved Time MRSA 09/17/2022 09/17/2022 11/16/2022 12:2 0 AM EST documented as of this encounter Advance Directives Documents on File Type Date Recorded Patient Chrome Tanning Drum Operator Expl anation Advance Directives and Living Will 04/29/2021 ADVANCE DIRECTIVE / LIVING WILL LIVING WILL AND HEALTH CARE POA Power of Repairer Hairspring 04/29/2021 [facility]OWER [facility] A [facility] [...] the patient have Health Care Power of Repairer Hairspring? No Code Status History Code Status Date Activated Date Inactivated Comments Full Code 12/27/2021 2:50 PM 12/27/2021 8:02 PM This order reflects the patients wishes and were consensually agreed upon. Question Answer Comments Discussion of Advance Directives occurred with: Not Discussed Does the patient have a Living Will? No Does the patient have Health Care Power of Repairer Hairspring? No Full Code 03/31/2021 8:57 PM 04/03/2021 [...] Agents on File Name Relationship [facility] Syed Bustos Spouse Emergency Contact Care Teams Network Design Architect Relationship Specialty Start Date End Date Vanita Dunn MD [address] [place] [address] PCP - General Family Medicine 03/16/21 documented as of this encounter
--- OUTSIDE RECORDS SUMMARY | 2023-05-10 16:56 | External Medical Summary | Summary of Care ---
Author Name Unknown Organization [facility] Address [address] [facility] [place] [address] Phone [phone] Care Team Providers Care Battery Recharger Name Role Phone Vanita Dunn MD Primary Care Provid er Reason for Visit * Reason Comments Follow Up Restrictive lung dis ease Encounter Details Date Type Department Care Team Description 12/09/2022 Office Visit Pulmonary Medicine, [facility] [address] [place] [address] Vivian Phillips CRNP [address] [place] [address] SOB (shortness of breath)*; Moderate persistent asthma without complication; Restrictive lung disease; Other cerebral palsy (HCC); Secondary esophageal varices without bleeding (HCC); 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 60 g 1 10/16/2019 Active Dexcom G6 Fnp Device Use as directed. To test blood sugars 4 times a day Dx E11.9 1 Each 0 09/14/2020 Active Dexcom G6 Transmitter Use as directed. To test blood sugars 4 times a day. Change every 90 days. Dx E11.9 1 Each 3 09/14/2020 Active OneTouch Verio In Vitro Strip (Glucose Blood) TESTING once daily 100 Strip 3 10/29/2020 Active OneTouch Delica Plus [id number] TESTING once daily 100 Each 3 10/29/2020 [...] A1c goal of less than 7.0% ([facility]) USE TO INJECT INSULIN FOUR TIMES [...] situation. 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 if a intermediate teacher plan is made -continue lexapro Generalized weakness [...] pain 01/24/2012 01/17/2017 Genetic Sleep Disorder Research Other*[id number] 05/13/2011 04/07/2016 Obstructive sleep apnea 01/18/2011 12/27/19 [...] (Prevnar) 05/02/2019 Pneumococcal Conjugate Vacci ne, 20-valent ([id number]) 10/21/2022 Pneumococcal Polysaccharide PPV23 (Pneumovax) 06/01/2010 Seasonal [...] as of this encounter Progress Notes * Vivian Maxwellraegan Phillips, ZAK - 12/09/2022 1:30 PM EDT [facility] PULMONARY PROGRESS NOTE [...] and bugle pressures. She follows with sleep medicinein regards to THAD. HPI: Today, reports she is at her baseline. Coughing spells at times. She is accompanied by her and today's visit. She confirms coughs She confirms sputum, but usually unable to produce. One time was dark red. 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 12/27/2010 Lymphedema 03/11/2013 MEDICATION USE AGREEMENT 03/27/2012 03/27/12 Myalgia and myositis 03/27/2012 THOMPSON (nonalcoholic steatohepatitis) 05/02/2012 Neuropathy Other specified infantile cerebral palsy Oxygen dependent 04/08/2019 Primary insomnia 04/04/2019 Recurrent major depressive disorder, in partial remission ([facility]) 04/04/2019 More recent Dx noted on PL Restrictive lung disease 12/2014 Sleep apnea CPAP Sleep apnea, obstructive Sleep disturbance 01/24/2012 Type 2 diabetes mellitus with hemoglobin A1c goal of less than 8.0% ([facility]) 09/26/2013 ICD-10 update of inactive term UTI (urinary tract infection) 01/27/2012 Noted in 2011 historical Venous insufficiency 01/09/2009 duplicate Past Surgical History: Procedure Laterality Date BONE DEBRIDEMENT, FIRST 20 CM2 Right 04/16/2020 DEBRIDEMENT SKIN SUBCUTANEOUS TISSUE MUSCLE AND BONE performed by Josh Vazquez MD [place] [facility] [place]ERY 04/20/1982 COLONOSCOPY 04/21/2009 repeat in 10 years COLONOSCOPY, DIAGNOSTIC (RECTUM) 10/04/2016 normal bx, repeat 10 yrs/[facility] COLONOSCOPY, DIAGNOSTIC (RECTUM) N/A 06/03/2020 internal hemorrhoids/biopsies show adenomatous polyps/recall 5 years/COLONOSCOPY FLEXIBLE PROXIMAL DIAGNOSTIC performed by Janis Hatch DO at OR [facility] COLONOSCOPY, DIAGNOSTIC (RECTUM) 03/17/2020 poor prep / [facility] DENTAL SURGERY PROCEDURE NEC wisdom teeth x 4 DILATION AND CURETTAGE (D&C) EGD, FLEXIBLE, DIAGNOSTIC 10/04/2016 gastritis/[facility] EGD, FLEXIBLE, DIAGNOSTIC 01/11/2018 eso varices, retained food, repeat 1 yr/[facility] EGD, FLEXIBLE, DIAGNOSTIC N/A 06/03/2020 severe erosive esophagitis/non-bleeding grade II esophageal varices/gastritis/biopsies show inflammatory changes/repeat 3-4 months/ESOPHAGOGASTRODUODENOSCOPY (EGD), FLEXIBLE, TRANSORAL, DIAGNOSTIC per formed by Janis Hatch DO at OR [facility] EGD, FLEXIBLE, DIAGNOSTIC 11/27/2019 eso varices, portal hypertensive gastropathy, gastritis / [facility] EGD, FLEXIBLE, DIAGNOSTIC N/A 08/05/2020 large amount of food in stomach/repeat 1.5 years/ESOPHAGOGASTRODUODENOSCOPY (EGD), FLEXIBLE, TRANSORAL, DIAGNOSTIC performed by Janis Hatch DO at OR [facility] EGD, FLEXIBLE, DIAGNOSTIC N/A 03/10/2021 ESOPHAGOGASTRODUODENOSCOPY (EGD), FLEXIBLE, TRANSORAL, DIAGNOSTIC performed by Kris Blankenship MD at [place] [facility] HYSTEROSCOPY W/BIOPSY AND/OR POLYPECTOMY W/WO D&C N/A 12/27/2021 HYSTEROSCOPY WITH BIOPSY AND/OR POLYPECTOMY WITH OR WITHOUT D&C performed by Concetta Khan MD at OR [facility] HYSTEROSCOPY W/BIOPSY AND/OR POLYPECTOMY W/WO D&C N/A 02/14/2022 HYSTEROSCOPY WITH BIOPSY AND/OR POLYPECTOMY WITH OR WITHOUT D&C performed by Concetta Khan MD at OR [facility] INSERT INTRAUTERINE DEVICE (IUD) N/A 02/14/2022 INSERTION OF INTRAUTERINE DEVICE performed by Concetta Khan MD at OR [facility] IR VENOUS ACCESS MEDIPORT 10/05/2020 PELVIS/HIP JOINT SURGERY NEC teenager aid in walking REMOVE CERVIX CONE W/LOOP ELECTRODE N/A 12/27/2021 LOOP ELECTROSURGERY EXCISION PROCEDURE performed by Concetta Khan MD at OR [facility] REPAIR/GRAFT ACHILLES TENDON age 40 aid in walking Allergies: Adhesive tape, Pcn [penicillins], Penicillin g, and Perflutren protein a microsph Current Outpatient Medications Medication Sig Dispense Refill nystatin (NYSTOP) 091956 UNIT/GM powder Apply topically to affected area 3 times a day. 60 g 1 Dexcom G6 Fnp Device Use as directed. To test blood sugars 4 times a day Dx E11.9 1 Each 0 Dexcom G6 Transmitter Use as directed. To test blood sugars 4 times a day. Change every 90 days. Dx E11.9 1 Each 3 OneTouch Verio In Vitro Strip (Glucose Blood) TESTING once daily 100 Strip 3 OneTouch Delica Plus [id number] TESTING once daily 100 Each 3 Nitroglycerin [...] solution 2.5 mg 2.5 mg Nebulizer MALLORY Mroales PA-C Albuterol Sulfate (Proventil) (5 MG/ML) 0.5% *conc* inhalation solution 2.5 mg 2.5 mg NebulizerPRRaegan Morales PA-C Social/occupational/living/family history: Home environment: Lives [...] 10/2022, reviewed report ( no image) from [facility] Care: Limited inspiration. No activepulmonary infiltrates or pleural [...] lymph nodes unchangedprior to previous exam in 2016 Performed 2020: FINDINGS LINES AND DEVICES: A [...] separately billed services. ZAK Peterson Pulmonary Medicine, [facility] [address] [facility] [place] [address] (This note was completed using the dictation [...] Chair 5 Hem On[address] [place] [address] 12/16/2022 Home Visit [facility] July Poe, RN [address] [facility] [place] [address] 12/26/2022 Office Visit Hematology Oncology Kenya Gonzalez CRNP [address] [place], [place] [address], [place] [address] 12/28/2022 Home Visit [facility] Aleyda Campos PA-C [address] [place] [address] 01/04/2023 Hem/Onc Treatment Hematology Oncology [place], Chair [address] [place] [address] 01/04/2023 Office Visit Pharmacy Pharmacist1, [facility] [address] [place] [address] 01/25/2023 Hem/Onc Treatment Hematology Oncology [place], Chair [address] [place] [address] 03/01/2023 PulmDiagnostic Pulmonary Function [place], [address] [place] [address] 03/01/2023 Office Visit Pulmonary Vivian Phillips CRNP [address] [place] [address] 03/08/2023 Office Visit Gastroenterology Lyssa Stout CRNP [address] [place] [address] Scheduled Orders Name Type Priority Associated Diagnoses [...] this encounter Medical Devices Implanted Type Area Radio Frequency Design Engineer Device Identifier Shelf Expiration Date Model / Serial / Lot Microtech Sure Clip Implanted:Qty: 2 on 06/03/2020 by Janis Hatch DO at OR [facility] Clip N/A: Colon 04/21/2022 [facility]-F-26-2 35-C-R / / [id number] documented as of this encounter Visit Diagnoses [...] failure with hypercapnia (HCC) Chronic respiratory failure documented in this encounter Advance Directives Documents on File Type Date Recorded 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 No Code Status History Code Status Date Activated Date Inactivated Comments Full Code 12/27/2021 2:50 PM 12/27/2021 8:02 PM This order reflects the patients wishes and were consensually agreed upon. Question Answer Comments Discussion of Advance Directives occurred with: Not Discussed Does the patient have a Living Will? No Does the patient have Health Care Power of Substation Mechanic? No Full Code 03/31/2021 8:57 PM 04/03/2021 [...] Syed Bustos Spouse Emergency Contact Care Teams Battery Recharger Relationship Specialty Start Date End Date Vanita Dunn MD [address], [place] [phone] PCP - General Family Medicine 03/16/21 documented as of this encounter
--- OUTSIDE RECORDS SUMMARY | 2023-05-10 16:57 | External Medical Summary | Summary of Care ---
Author Name Unknown Organization [facility] Address [address] [facility] [place] [address] Phone [phone] Care Team Providers Care Jewel Hole Finish Opener Name Role Phone Vanita Dunn MD Primary Care Provid er Reason for Visit * Reason Onset Date Comments Health Maintenance 12/06/2022 Encounter Details Date Type Department Care Team Description 12/06/2022 Telephone [facility], [facility] [address] [place] [address] [facility], Nurse [facility] [address] [place] [address] Health Maintenance Allergies Active Allergy Reactions Severity Noted Date Comments Adhesive Tape Itching 04/29/2020 Penicillins Rash 02/12/2008 Penicillin G 07/20/2018 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 documented as of this encounter (statuses as of 12/06/2022) Medications Medication Sig Dispensed Refills Start Date End Date Status nystatin (NYSTOP) 074321 UNIT/GM powder Apply topically to affected area 3 times a day. 60 g 1 10/16/2019 Active Dexcom G6 Bale Sewer Device Use as directed. To test blood sugars 4 times a day Dx E11.9 1 Each 0 09/14/2020 Active Dexcom G6 Transmitter Use as directed. To test blood sugars 4 times a day. Change every 90 days. Dx E11.9 1 Each 3 09/14/2020 Active OneTouch Verio In Vitro Strip (Glucose Blood) TESTING once daily 100 Strip 3 10/29/2020 Active Emulation and Verification EngineeringTouch Delica Plus [id number] TESTING once daily 100 Each 3 10/29/2020 [...] A1c goal of less than 8.0% ([facility]) Inject 27 units subcutaneously at [...] 3 days. 3 Tablet 0 12/06/2022 12/10/19 Active Hospital, Clinic, or Other Facility Administered [...] as of this encounter (statuses as of 12/06/2022) Active Problems Problem Noted Date Hypertensive heart [...] as of this encounter (statuses as of 12/06/2022) Resolved Problems Problem Noted Date Resolved Date [...] current situation. 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 if a jail plan is made -continue lexapro Generalized weakness [...] pain 01/24/2012 01/17/2017 Genetic Sleep Disorder Research Other*[id number] 05/13/2011 04/07/2016 Obstructive sleep apnea 01/18/2011 12/27/19 [...] as of this encounter (statuses as of 12/06/2022) Immunizations Name Administration Dates Next Due COVID-19 mRNA, LNP-s, No Pre serve, 2-Dose Series (Moderna) 01/05/2022,07/26/2021,12/21/2020,11/09 HEP A - Hepatitis A (Adult > 18 yrs) 09/24/2018, 03/26/2018 Hepatitis B, 20+ yrs 09/24/2018,04/23/2018,03/26 Pneumococcal Conjugate Vacc, 13 Valent (Prevnar) 05/02/2019 Pneumococcal Conjugate Vacci ne, 20-valent ([id number]) 10/21/2022 Pneumococcal Polysaccharide PPV23 (Pneumovax) 06/01/2010 Seasonal [...] Telephone Encounter - Michelle Vyas RN - 12/06/2022 6:03 PM EDT Patient calling because she said a rx for Macrobid. It is not at pharmacy. Call to Juan, It cannot be filled unless a prior auth or written for generic. TT to Dr. Barlow will send in rx for Diflucan for yeast infections. More appropriate. Patient called and made aware. Michelle Vyas. [facility] copier technician [phone] documented in this encounter Plan of Treatment Upcoming Encounters Date Type Specialty Care Team Description 12/07/2022 Scheduled Telephone [facility]ight[facility], [address] [place] [address] 12/07/2022 Office Visit Pulmonary Joe Anglin MD [address] [place] [address] 12/08/2022 Office Visit Hematology Oncology Tono Sanchez MD [address] [facility], [place] [phone] 12/09/2022 Imaging Radiology 12/14/2022 Hem/Onc Treatment Hematology Oncology [place], Chair 2 Hem Onc Scenery [address] [place] [address] 12/16/2022 Home Visit [facility] July Poe, RN [address] [place] [address] 12/28/2022 Home Visit [facility] Aleyda Campos PA-C [address] [place] [address] 01/04/2023 Hem/Onc Treatment Hematology Oncology [place], Chair 11 [address] [place] [address] 01/04/2023 Office Visit Pharmacy Pharmacist2, [facility] Sp [address] [place] [address] 01/25/2023 Hem/Onc Treatment Hematology Oncology [place], Chair 11 [address] [place] [address] 02/10/2023 Office Visit Sleep Disorders Love Francisco DO [address] [place] [address] 03/01/2023 PulmDiagnostic Pulmonary Function [place], Pft [address] [place] [address] 03/08/2023 Office Visit Gastroenterology Lyssa Stout CRNP [address] [place] [address] Scheduled Procedures Name Priority Associated Diagnoses Date/Ti [...] 09/15/2022 09/15/2021, 06/12, 04/01/2021, Additional history exists HgA1C 11/16/2022 05/19/2022, 01/09, 08/19/2021, Additional history exists Albumin/Creatinine Ratio 03/30/2023 022, 01/11/2019, 02/03/2017, Additional history exists TSH FOR THYROID MEDICATION MONITORING YEARLY 07/06/2023 07/06/2022, 05/19/2022, 06/10/2021, Additional history exists GFR - Renal Function 08/30/2023 08/30/2022, 05/19/2022, 12/20/2021, Additional history exists COLONOSCOPY-EVERY 5 YRS AGES [...] this encounter Medical Devices Implanted Type Area Campus Administrative Assistant Device Identifier Shelf Expiration Date Model / Serial / Lot Microtech Sure Clip Implanted:Qty: 2 on 06/03/2020 by Janis Hatch DO at OR [facility] Clip N/A: Colon 04/21/2022 [facility]-F-26-2 35-C-R / / [id number] documented as of this encounter Advance Directives Documents on File Type Date Recorded Patient Child Care Cook Expl anation Advance Directives and Living Will 04/29/2021 ADVANCE DIRECTIVE / LIVING WILL LIVING WILL AND HEALTH CARE POA Power of Jv Baseball Coach 04/29/2021 [facility] [...] the patient have Health Care Power of Jv Baseball Coach? No Code Status History Code Status Date Activated Date Inactivated Comments Full Code 12/27/2021 2:50 PM 12/27/2021 8:02 PM This order reflects the patients wishes and were consensually agreed upon. Question Answer Comments Discussion of Advance Directives occurred with: Not Discussed Does the patient have a Living Will? No Does the patient have Health Care Power of Jv Baseball Coach? No Full Code 03/31/2021 8:57 PM 04/03/2021 [...] File Name Relationship Healthcare Agent [facility] Syed Bustos Spouse Emergency Contact Care Teams Jewel Hole Finish Opener Relationship Specialty Start Date End Date Vanita Dunn MD [address] [place] [phone] PCP - General Family Medicine 03/16/21 documented as of this encounter
--- OUTSIDE RECORDS SUMMARY | 2023-05-10 16:57 | External Medical Summary | Summary of Care ---
Author Name Unknown Organization [facility] Address [address] [facility] [place] [address] Phone [phone] Care Team Providers Care Home Appliance Installer Name Role Phone Vanita Dunn MD Primary Care Provid er Reason for Visit * Reason Onset Date Comments [facility]: Maintenance 12/07/2022 Encounter Details Date Type Department Care Team Description 12/07/2022 Scheduled Telephone [facility], [facility] [address] [facility] [place] [address] Coordinator, [facility] [address] [facility] [place] [address] Allergies Active Allergy Reactions Severity Noted Date Comments Adhesive Tape Itching 04/29/2020 Penicillins Rash 02/12/2008 Penicillin G 07/20/2018 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 documented as of this encounter (statuses as of 12/07/2022) Medications Medication Sig Dispensed Refills Start Date End Date Status nystatin (NYSTOP) 510413 UNIT/GM powder Apply topically to affected area 3 times a day. 60 g 1 10/16/2019 Active Dexcom G6 Painting Department Supervisor Device Use as directed. To test blood sugars 4 times a day Dx E11.9 1 Each 0 09/14/2020 Active Dexcom G6 Transmitter Use as directed. To test blood sugars 4 times a day. Change every 90 days. 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 if a senior living plan is made -continue lexapro Generalized weakness [...] pain 01/24/2012 01/17/2017 Genetic Sleep Disorder Research Other*[id number] 05/13/2011 04/07/2016 Obstructive sleep apnea 01/18/2011 12/27/19 [...] 03/04/2010 Hypothyroidism 06/30/2009 03/28/2012 HTN, goal below 140/06/30/2009 2 Dyslipidemia, goal to be determined 06/30/2009 [...] (Prevnar) 05/02/2019 Pneumococcal Conjugate Vacci ne, 20-valent ([id number]) 10/21/2022 Pneumococcal Polysaccharide PPV23 (Pneumovax) 06/01/2010 Seasonal [...] encounter Miscellaneous Notes * Telephone Encounter - Silvia Tavia, DEVAN - 12/07/2022 12:09 PM EDT [facility] Telephonic Nurse Follow-Up Call [facility] Subprogram: Focused Care Management (3-9 months) Follow Up Call Type: Routine follow up call / Status Check Acute issue requiring follow-up call: Other: f/u UTI Objective: 12/06/2022 12:54 PM 11/30/2022 10:17 AM 11/23/2022 2:26 PM 11/21/2022 2:21 PM 11/17/2022 3:53 PM VITALS ACROSS ENCOUNTERS BP 120/78 120/72 128/87 100/60 102/62 Pulse 62 76 70 63 62 Lab Results Component Value Date BLOOD, URINE - [facility] Large (A) 11/30/2022 PROTEIN - [facility] 6.1 12/06/2022 PROTEIN, URINE - [facility] 30 (A) 11/30/2022 ESTERASE, URINE - [facility] Moderate (A) 11/30/2022 WBC AUTO - [facility] 3.80 (L) 11/23/2022 WBC, URINE - [facility] 50+ (A) 11/30/2022 NITRITE, URINE - [facility] Negative 11/30/2022 QUANT URINE CULTURE GROWTH 10,000 to 100,000 colonies/mL Yeast (A) 11/30/2022 Lab Results Component Value Date WBC AUTO - [facility] 3.80 (L) 11/23/2022 HGB - [facility] 10.3 (L) 11/23/2022 PLATELET AUTO - [facility] 65 (L) 11/23/2022 Lab Results Component Value Date SODIUM - [...] made during acute episode Subjective: Condition Status: No change in symptoms Current Concerns: Called and spoke to patients spouse. He reports that he called pharmacy today and they have the Diflucan ready to be picked up. Patient continues with the same sx as reported previously. Spouse to gopickup script today. Disposition: Issue resolved. All appropriate follow up scheduled. Future Visits Scheduled: Future Appointments-next 60 days Date/Time Provider Specialty Dept Phone 12/07/2022 12:30 PM [facility] Hardscape Foreman [facility] [phone] 12/08/2022 1:15 PM (Arrive by 1:00 PM) Tono Sanchez MD Hematology Oncology [phone] 12/09/2022 1:30 PM (Arrive by 1:15 PM) ZAK Connolly Pulmonary [phone] 12/09/2022 2:15 PM (Arrive by 2:00 PM) [address] Radiology [phone] 12/14/2022 3:00 PM Chair 5 Hem Onc [facility] Hematology Oncology [phone] 12/16/2022 12:30 PM July Poe RN [facility] [phone] 12/16/2022 2:40 PM 12/28/2022 10:00 AM Aleyda Campos PA-C [facility] [phone] 01/04/2023 1:30 PM Chair 11 Hem Onc [facility] Hematology Oncology [phone] 01/04/2023 3:40 PM [facility] Pharmacist2 Pharmacy [phone] 01/25/2023 1:30 PM Chair 11 Hem Onc [facility] Hematology Oncology [phone] 02/10/2023 12:00 PM (Arrive by 11:45 AM) Love Francisco, Sleep Disorders [phone] 03/01/2023 1:00 PM [facility] Pulmonary Function [phone] 03/08/2023 1:30 PM (Arrive by 1:15 PM) ZAK Bolton Gastroenterology [phone] Silvia Squires LPN documented in this encounter Plan of Treatment Upcoming Encounters Date Type Specialty Care Team Description 12/08/2022 Office Visit Hematology Oncology Tono Sanchez MD [address] [place] [address] 12/09/2022 Office Visit Pulmonary Vivian Phillips CRNP [address] [place] [address] 12/09/2022 Imaging Radiology 12/14/2022 Hem/Onc Treatment Hematology Oncology [place], Chair 5 Hem Onc [facility] [address] [facility] [place] [address] 12/16/2022 Home Visit [facility] July Poe RN [address] [place] [address] 12/28/2022 Home Visit [facility] Aleyda Campos PA-C [address] [place] [address] 01/04/2023 Hem/Onc Treatment Hematology Oncology [place], Chair 11 Hem Onc [address] [place] [address] 01/04/2023 Office Visit Pharmacy Pharmacist2, [facility] Sp [address] [place] [address] 01/25/2023 Hem/Onc Treatment Hematology Oncology [place], Chair 11 Hem Onc Sc[address] [place] [address] 02/10/2023 Office Visit Sleep Disorders Love Francisco, [address] [place] [address] 03/01/2023 PulmDiagnostic Pulmonary Function [place], Pft [address] [place] [address] 03/08/2023 Office Visit Gastroenterology Lyssa Stout CRNP [address] [place] [address] Scheduled Procedures Name Priority Associated Diagnoses Date/Ti [...] this encounter Medical Devices Implanted Type Area Registered Nurse Maternal Child Device Identifier Shelf Expiration Date Model / Serial / Lot Microtech Sure Clip Implanted:Qty: 2 on 06/03/2020 by Janis Hatch DO at OR [facility] Clip N/A: Colon 04/21/2022 [facility]-F-26-2 35-C-R / / [id number] documented as of this encounter Advance Directives Documents on File Type Date Recorded Patient Carpenter Repairer Expl anation Advance Directives and Living Will 04/29/2021 ADVANCE DIRECTIVE / LIVING WILL LIVING WILL AND HEALTH CARE POA Power of Pay Station Attendant 04/29/2021 POWER OF A [facility] [...] the patient have Health Care Power of Pay Station Attendant? No Code Status History Code Status Date Activated Date Inactivated Comments Full Code 12/27/2021 2:50 PM 12/27/2021 8:02 PM This order reflects the patients wishes and were consensually agreed upon. Question Answer Comments Discussion of Advance Directives occurred with: Not Discussed Does the patient have a Living Will? No Does the patient have Health Care Power of Pay Station Attendant? No Full Code 03/31/2021 8:57 PM [...] Syed Bustos Spouse Emergency Contact Care Teams Home Appliance Installer Relationship Specialty Start Date End Date Vanita Dunn MD [address] [place] [address] PCP - General Family Medicine 03/16/21 documented as of this encounter
--- OUTSIDE RECORDS SUMMARY | 2023-05-10 16:57 | External Medical Summary | Summary of Care ---
Author Name Unknown Organization [facility] Address [address] [facility] [place] [address] Phone [phone] Care Team Providers Care Title Camera Operator Name Role Phone Vanita Dunn MD Primary Care Provid er Reason for Visit * Reason Onset Date Comments [facility]: Maintenance 12/07/2022 Encounter Details Date Type Department Care Team Description 12/07/2022 Telephone [facility], [facility] [address] [place] [address] [facility], Nurse [facility] [address] [place] [address] [facility]: Maintenance Allergies Active Allergy Reactions Severity Noted Date Comments Adhesive Tape Itching 04/29/2020 Penicillins Rash 02/12/2008 Penicillin G 07/20/2018 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 documented as of this encounter (statuses as of 12/07/2022) Medications Medication Sig Dispensed Refills Start Date End Date Status nystatin (NYSTOP) 004194 UNIT/GM powder Apply topically to affected area 3 times a day. 60 g 1 10/16/2019 Active Dexcom G6 Phlebotomy Technician Device Use as directed. To test blood sugars 4 times a day Dx E11.9 1 Each 0 09/14/2020 Active Dexcom G6 Transmitter Use as directed. To test blood sugars 4 times a day. Change every 90 days. Dx E11.9 1 Each 3 09/14/2020 Active OneTouch Verio In Vitro Strip (Glucose Blood) TESTING once daily 100 Strip 3 10/29/2020 Active ClassLinkTouch Delica Plus [id number] TESTING once daily 100 Each 3 10/29/2020 [...] hemoglobin A1c goal of less than 8.0% ([facility]) 35 Units at breakfast, 39 [...] hemoglobin A1c goal of less than 8.0% ([facility]) Inject 27 units subcutaneously at [...] pain 01/24/2012 01/17/2017 Genetic Sleep Disorder Research Other*[id number] 05/13/2011 04/07/2016 Obstructive sleep apnea 01/18/2011 12/27/19 [...] (Prevnar) 05/02/2019 Pneumococcal Conjugate Vacci ne, 20-valent ([id number]) 10/21/2022 Pneumococcal Polysaccharide PPV23 (Pneumovax) 06/01/2010 Seasonal [...] RN - 12/07/2022 9:48 AM EDT Called [facility] spoke with Gilma, she stated they will need a new order to be sent to supplier. Notes in [facility] on 11/30/ July ZEPEDA charted patient needs more Purewick catheters, [id number] and a replacement canister . Rachel Tomlinson RN Ceramic Artist [facility] * Telephone Encounter - Rachel Tomlinson RN [...] reschedule because she has an appointment at [facility] at 2:40. Patient rescheduled for 12:30 on and is agreeable. Patient then asked if she is getting a recliner chair from somewhere? Rachel Tomlinson bag bundlerCeramic Artist [facility] documented in this encounter Plan of Treatment Upcoming Encounters Date Type Specialty Care Team Description 12/07/2022 Scheduled Telephone [facility] Plycor Operator, [facility] 132 [place] [address] 12/07/2022 Office Visit Pulmonary Joe Anglin MD [address] [place] [address] 12/08/2022 Office Visit Hematology Oncology [facility]ono [facility] [address] 12/09/2022 Imaging Radiology 12/14/2022 Hem/Onc Treatment Hematology Oncology [place], Chair 2 Hem Onc Scenery [address] [facility] [address] [facility] [address] 12/16/2022 Home Visit [facility] July Poe RN [address] [place] [address] 12/28/2022 Home Visit [facility] Aleyda Campos PA-C [address] [place] [address] 01/04/2023 Hem/Onc Treatment Hematology Oncology [place], Chair 11 Hem Onc Scenery [address] [facility] [place] [address] 01/04/2023 Office Visit Pharmacy Pharmacist2, [facility] Sp [address] [facility] [place] [address] 01/25/2023 Hem/Onc Treatment Hematology Oncology [place], Chair 11 Hem Onc [address]ery [address] [place] [address] 02/10/2023 Office Visit Sleep Disorders Love Francisco, DO [address] [place] [address] 03/01/2023 PulmDiagnostic Pulmonary Function [place], Pft [address] [place] [address] 03/08/2023 Office Visit Gastroenterology Lyssa Stout CRNP [address] [place] [address] Scheduled Procedures Name Priority Associated Diagnoses Date/Ti [...] this encounter Medical Devices Implanted Type Area Water Gas Operator Device Identifier Shelf Expiration Date Model / Serial / Lot Microtech Sure Clip Implanted:Qty: 2 on 06/03/2020 by Janis Hatch DO at OR [facility] Clip N/A: Colon 04/21/2022 [facility]-F-26-2 35-C-R / / [id number] documented as of this encounter Advance Directives Documents on File Type Date Recorded Patient Vegetable Tester Expl anation Advance Directives and Living Will 04/29/2021 ADVANCE DIRECTIVE / LIVING WILL LIVING WILL AND HEALTH CARE POA Power of Oceanographer Geological 04/29/2021 POWER [facility] A [facility] [...] the patient have Health Care Power of Oceanographer Geological? No Code Status History Code Status Date Activated Date Inactivated Comments Full Code 12/27/2021 2:50 PM 12/27/2021 8:02 PM This order reflects the patients wishes and were consensually agreed upon. Question Answer Comments Discussion of Advance Directives occurred with: Not Discussed Does the patient have a Living Will? No Does the patient have Health Care Power of Oceanographer Geological? No Full Code 03/31/2021 8:57 PM 04/03/2021 [...] Syed Bustos Spouse Emergency Contact Care Teams Title Camera Operator Relationship Specialty Start Date End Date Vanita Dunn MD [address] [place] [address] PCP - General Family Medicine 03/16/21 documented as of this encounter
--- OUTSIDE RECORDS SUMMARY | 2023-05-10 16:57 | External Medical Summary | Summary of Care ---
Author Name Unknown Organization [facility] Address [address] [facility] [place] [address] Phone [phone] Care Team Providers Care Principal Product Manager Name Role Phone Vanita Dunn MD Primary Care Provid er Encounter Details Date Type Department Care Team Description 12/06/2022 Orders Only [facility], [facility] [address] [facility] [place] [address] Jose Barlow DO [address] [place] [facility] [place] [address] Allergies Active Allergy Reactions Severity Noted Date Comments Adhesive Tape Itching 04/29/2020 Penicillins Rash 02/12/2008 Penicillin G 07/20/2018 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 documented as of this encounter (statuses as of 12/06/2022) Medications Medication Sig Dispensed Refills Start Date End Date Status nystatin (NYSTOP) 697375 UNIT/GM powder Apply topically to affected area 3 times a day. 60 g 1 10/16/2019 Active Dexcom G6 Water Treatment Plant Supervisor Device Use as directed. To test blood sugars 4 times a day Dx E11.9 1 Each 0 09/14/2020 Active Dexcom G6 Transmitter Use as directed. To test blood sugars 4 times a day. Change every 90 days. Dx E11.9 1 Each 3 09/14/2020 Active OneTouch Verio In Vitro Strip (Glucose Blood) TESTING once daily 100 Strip 3 10/29/2020 Active OneTouch Delica Plus Indkhk28U TESTING once daily 100 Each 3 10/29/2020 [...] pain 01/24/2012 01/17/2017 Genetic Sleep Disorder Research Other*[id number] 05/13/2011 04/07/2016 Obstructive sleep apnea 01/18/2011 12/27/19 [...] (Prevnar) 05/02/2019 Pneumococcal Conjugate Vacci ne, 20-valent ([id number]) 10/21/2022 Pneumococcal Polysaccharide PPV23 (Pneumovax) 06/01/2010 Seasonal [...] Team Description 12/07/2022 Scheduled Telephone [facility] Electrostatic Painter, Brady Decker [address] [place] [address] 12/07/2022 Office Visit Pulmonary LinnetteJoe MD [address] [place] [address] 12/08/2022 Office Visit Hematology Oncology Tono Sanchez MD 200 [place] [address] 12/09/2022 Imaging Radiology 12/14/2022 Hem/Onc Treatment Hematology Oncology [place], Chair 2 Hem Onc [facility] [address] [place] [address] 12/16/2022 Home Visit [facility] July Poe RN [address] [place] [address] 12/28/2022 Home Visit [facility] Aleyda Campos PA-C [address] [address] 01/04/2023 Hem/Onc Treatment Hematology Oncology [place], Chair 11 Hem Onc [address]enery [address] [place] [address] 01/04/2023 Office Visit Pharmacy Pharmacist2, [facility] [address] [place] [address] 01/25/2023 Hem/Onc Treatment Hematology Oncology [place], Chair 11 Hem Onc [address] [place] [address] 02/10/2023 Office Visit Sleep Disorders Love Francisco DO [address] [place] [address] 03/01/2023 PulmDiagnostic Pulmonary Function [place], Pft [address] [place] [address] 03/08/2023 Office Visit Gastroenterology Lyssa Stout CRNP [address] [place] [address] Scheduled Procedures Name Priority Associated Diagnoses Date/Ti [...] this encounter Medical Devices Implanted Type Area Grain Scooper Device Identifier Shelf Expiration Date Model / Serial / Lot Microtech Sure Clip Implanted:Qty: 2 on 06/03/2020 by Janis Hatch DO at OR [facility] Clip N/A: Colon 04/21/2022 [facility]-F-26-2 35-C-R / / [id number] documented as of this encounter Advance Directives Documents on File Type Date Recorded Patient Freezer Machine Operator Expl anation Advance Directives and Living Will 04/29/2021 ADVANCE DIRECTIVE / LIVING WILL LIVING WILL AND HEALTH CARE POA Power of Iron Guardrail Installer 04/29/2021 POWER OF A [facility] [...] the patient have Health Care Power of Iron Guardrail Installer? No Code Status History Code Status Date Activated Date Inactivated Comments Full Code 12/27/2021 2:50 PM 12/27/2021 8:02 PM This order reflects the patients wishes and were consensually agreed upon. Question Answer Comments Discussion of Advance Directives occurred with: Not Discussed Does the patient have a Living Will? No Does the patient have Health Care Power of Iron Guardrail Installer? No Full Code 03/31/2021 8:57 PM [...] File Name Relationship [facility] Syed Bustos Spouse Emergency Contact Care Teams Principal Product Manager Relationship Specialty Start Date End Date Vanita Dunn MD [address] [place] [address] PCP - General Family Medicine 03/16/21 documented as of this encounter
--- OUTSIDE RECORDS SUMMARY | 2023-05-10 16:57 | External Medical Summary | Summary of Care ---
Author Name Unknown Organization [facility] Address [address] [facility] [place] [address] Phone [phone] Care Team Providers Care Account Support Associate Name Role Phone Vanita Dunn MD Primary Care Provid er Reason for Visit * Reason Onset Date Comments [facility]: Maintenance 12/07/2022 Encounter Details Date Type Department Care Team Description 12/07/2022 Telephone [facility], [facility] [address] [facility] [place] [address] [facility], Nurse [facility] [address] [facility] [place] [address] [facility]: Maintenance Allergies Active Allergy Reactions Severity Noted Date Comments Adhesive Tape Itching 04/29/2020 Penicillins Rash 02/12/2008 Penicillin G 07/20/2018 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 documented as of this encounter (statuses as of 12/07/2022) Medications Medication Sig Dispensed Refills Start Date End Date Status nystatin (NYSTOP) 039711 UNIT/GM powder Apply topically to affected area 3 times a day. 60 g 1 10/16/2019 Active Dexcom G6 Phlebotomy Instructor Device Use as directed. To test blood sugars 4 times a day Dx E11.9 1 Each 0 09/14/2020 Active Dexcom G6 Transmitter Use as directed. To test blood sugars 4 times a day. Change every 90 days. Dx E11.9 1 Each 3 09/14/2020 Active OneTouch Verio In Vitro Strip (Glucose Blood) TESTING once daily 100 Strip 3 10/29/2020 Active TeleDNATouch Delica Plus [id number] TESTING once daily 100 Each 3 10/29/2020 [...] of less than 8.0% ([facility]) 35 Units at breakfast, 39 [...] less than 8.0% ([facility]) Inject 27 units subcutaneously at [...] current situation. 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 if a assisted plan is made -continue lexapro Generalized weakness [...] pain 01/24/2012 01/17/2017 Genetic Sleep Disorder Research Other*[id number] 05/13/2011 04/07/2016 Obstructive sleep apnea 01/18/2011 12/27/19 [...] (Prevnar) 05/02/2019 Pneumococcal Conjugate Vacci ne, 20-valent ([id number]) 10/21/2022 Pneumococcal Polysaccharide PPV23 (Pneumovax) 06/01/2010 Seasonal [...] RN - 12/07/2022 9:48 AM EDT Called [facility] spoke with Gilma, she stated they will need a new order to be sent to supplier. Notes in [facility] on 11/30/ July ZEPEDA charted patient needs more Purewick catheters, [id number] and a replacement canister . Rachel Tomlinson RN Design Supervisor [facility] * Telephone Encounter - Rachel Tomlinson RN [...] reschedule because she has an appointment at [facility] at 2:40. Patient rescheduled for 12:30 on and is agreeable. Patient then asked if she is getting a recliner chair from somewhere? Rachel Tomlinson belt changerDesign Supervisor [facility] documented in this encounter Plan of Treatment Upcoming Encounters Date Type Specialty Care Team Description 12/07/2022 Scheduled Telephone [facility], [facility] [address] [place] [address] 12/07/2022 Office Visit Pulmonary Joe Anglin MD [address] [place] [address] 12/08/2022 Office Visit Hematology Oncology [facility] [address] [facility] [address] 12/09/2022 Imaging Radiology 12/14/2022 Hem/Onc Treatment Hematology Oncology [place], Chair 2 Hem Onc Scenery [address] [facility] [address] [facility] [address] 12/16/2022 [facility] Visit [facility] July Poe RN [address] [place] [address] 12/28/2022 Home Visit [facility] Aleyda Campos PA-C [address] [place] [address] 01/04/2023 Hem/Onc Treatment Hematology Oncology [place], Chair 11 Hem Onc Scenery [address] [facility] ON LICENSE OF [facility] [place] [address] 01/04/2023 Office Visit Pharmacy Pharmacist2, [facility] [address] [facility] [place] [address] 01/25/2023 Hem/Onc Treatment Hematology Oncology [place], Chair 11 Hem Onc Scenery [address] [place] [address] 02/10/2023 Office Visit Sleep Disorders Love Francisco, DO [address] [place] [address] 03/01/2023 PulmDiagnostic Pulmonary Function [place], Pft [address] [place] [address] 03/08/2023 Office Visit Gastroenterology Lyssa Stout CRNP [address] [place] [address] Scheduled Procedures Name Priority Associated Diagnoses Date/Ti [...] this encounter Medical Devices Implanted Type Area Merchandise Adjustment Clerk Device Identifier Shelf Expiration Date Model / Serial / Lot Microtech Sure Clip Implanted:Qty: 2 on 06/03/2020 by Janis Hatch DO at OR [facility] Clip N/A: Colon 04/21/2022 [facility]-F-26-2 35-C-R / / [id number] documented as of this encounter Advance Directives Documents on File Type Date Recorded Patient Balance Recesser Expl anation Advance Directives and Living Will 04/29/2021 ADVANCE DIRECTIVE / LIVING WILL LIVING WILL AND HEALTH CARE POA Power of Defective Cigarette Slitter 04/29/2021 [facility] [...] the patient have Health Care Power of Defective Cigarette Slitter? No Code Status History Code Status Date Activated Date Inactivated Comments Full Code 12/27/2021 2:50 PM 12/27/2021 8:02 PM This order reflects the patients wishes and were consensually agreed upon. Question Answer Comments Discussion of Advance Directives occurred with: Not Discussed Does the patient have a Living Will? No Does the patient have Health Care Power of Defective Cigarette Slitter? No Full Code 03/31/2021 8:57 PM 04/03/2021 [...] Bustos Spouse Emergency Contact Care Teams Account Support Associate Relationship Specialty Start Date End Date Vanita Dunn MD [address] [place] [address] PCP - General Family Medicine 03/16/21 documented as of this encounter
--- OUTSIDE RECORDS SUMMARY | 2023-05-10 16:58 | External Medical Summary ---
Author Name Unknown Address Unknown Organization K01:[facility] [place] [address] [place] [address] Laboratory Report Ordering Provider Test Date Status SEBASTIÁN KOEHLER 12/06/2022 14:08:44 Final Observation Date Value Abnormality Reference (Units ) Status HbA1C 12/06/2022 14:08:44 6.0 Above high normal 4. 0-5.6 (%) Final Performing Location [facility] [address] [facility] [address]
--- OUTSIDE RECORDS SUMMARY | 2023-05-10 16:58 | External Medical Summary | Summary of Care ---
Author Name Unknown Organization [facility] Address [address] [facility] [place] [address] Phone [phone] Care Team Providers Care Cancer Genetic Counselor Name Role Phone Vanita Dunn MD Primary Care Provid er Reason for Visit * Reason Comments Follow Up NAFLD, anemia, const ipation, cirrhosis of the liver , varices Encounter Details Date Type Department Care Team Description 12/06/2022 Office Visit Gastroenterology, [facility] [address] [place] [address] Lyssa Stout CRNP [address] [place] [place] [address] Hepatic cirrhosis, unspecified hepatic cirrhosis type, unspecified whether ascites present (HCC)*; NAFLD (nonalcoholic fatty liver disease) Allergies Active Allergy Reactions Severity Noted Date Comments Adhesive Tape Itching 04/29/2020 Penicillins Rash 02/12/2008 Penicillin G 07/20/2018 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 documented as of this encounter (statuses as of 12/06/2022) Medications Medication Sig Dispensed Refills Start Date End Date Status nystatin (NYSTOP) 442277 UNIT/GM powder Apply topically to affected area 3 times a day. 60 g 1 0 Active Dexcom G6 Butcher Head Device Use as directed. To test blood sugars 4 times a day Dx E11.9 1 Each 0 1 Active Dexcom G6 Transmitter Use as directed. To test blood sugars 4 times a day. Change every 90 days. Dx E11.9 1 Each 3 1 Active OneTouch Verio In Vitro Strip (Glucose Blood) TESTING once daily 100 Strip 3 1 Active OneTouch Delica Plus [id number] TESTING once daily 100 Each 3 1 [...] the morning. 45 mL 3 3 Active Benzonatate 200 MG Oral CapsuleIndications: Bronchitis, complicated Take 1 Capsule by mouth 3 times a day as needed for Cough. 30 Capsule 1 3 Active Pantoprazole Sodium 20 MG Oral [...] MOUTH 2 TIMES DAILY. 60 Each 0 03/15/202 3 Active Albuterol Sulfate (2.5 MG/3ML) 0.083% [...] Additional Information Patient not taking.Reported on 12/06/2022 traMADol HCl 50 MG Oral Tablet (Ultram)Indications :Abdominal pain, generalized Take by mouth 2 Tablets every 6 hours as needed for Pain, Severe (abdominal pain). 40 Tablet 0 2 12/07/19 23 Discontinu ed(Medicat ion List Clean Up) oxyCODONE HCl 5 MG Oral Tablet (Oxy IR)Indications:Bending Roll Hand kai pain syndrome Take 1 Tablet by mouth every 6 hours as needed for Pain, Moderate or Pain, Severe. 30 Tablet 0 3 12/07/19 23 Discontinu ed(Medicat ion List Clean Up) Hospital, Clinic, or Other [...] pancreas 02/15/2021 10/01/2021 AMS (altered mental status) 02/04/202101/101 Cardiomegaly 01/30/2021 09/13/2021 SOB (shortness of breath) [...] pain 01/24/2012 01/17/2017 Genetic Sleep Disorder Research Other*[id number] 05/13/2011 04/07/2016 Obstructive sleep apnea 01/18/2011 12/27/19 [...] (Prevnar) 05/02/2019 Pneumococcal Conjugate Vacci ne, 20-valent ([id number]) 10/21/2022 Pneumococcal Polysaccharide PPV23 (Pneumovax) 06/01/2010 Seasonal [...] Sign Reading Time Taken Comments Blood Pressure 120/78 12/06/2022 12:54 PM EDT Pulse 62 12/06/2022 12:54 PM EDT Temperature 36.6 C (97.9 F) 12/06/2022 12:54 PM E DT Respiratory Rate - - Oxygen Saturation 97% 12/06/2022 12:54 PM EDT Inhaled Oxygen Concentration - - [...] encounter Progress Notes * ZAK Bolton - 12/06/2022 1:34 PM EDT DATE OF SERVICE: 12/06/22 REFERRING PHYSICIAN: Rajwinder Carter DO CC: F/U NG cirrhosis HPI: 03/28/23: Pt denies abd pain, n/v. Notices small [...] or dark tarry stools 05/11/2021 (seen by [facility] Hepatology, Dr. 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 She was recently admitted to [facility] 03/07/21-03/11/21 with chest/epigastric pain. She was noted [...] Recurrent major depressive disorder, in partial remission ([facility]) 04/04/2019 More recent Dx noted on PL Restrictive lung disease 12/2014 Sleep apnea CPAP Sleep apnea, obstructive Sleep disturbance 01/24/2012 Type 2 diabetes mellitus with hemoglobin A1c goal of less than 8.0% ([facility]) 09/26/2013 ICD-10 update of inactive term UTI (urinary tract infection) 01/27/2012 Noted in 2011 historical Venous insufficiency 01/09/2009 duplicate Family History Problem Relation Age of Onset Heart Disorder Father of [place] at age 61 Diabetes Father Heart Disorder Mother of [place] age 72 Heart Disorder Sister Mi at age 46 Hypertension Sister Cancer No significant family history Arthritis No significant family history Mental Disorder No significant family history Stroke No significant family history Past Surgical History: Procedure Laterality Date BONE DEBRIDEMENT, FIRST 20 CM2 Right 04/16/2020 DEBRIDEMENT SKIN SUBCUTANEOUS TISSUE MUSCLE AND BONE performed by Josh Vazquez MD at OR [facility] DELIVERY 04/20/1982 COLONOSCOPY 04/21/2009 repeat in 10 years COLONOSCOPY, DIAGNOSTIC (RECTUM) 10/04/2016 normal bx, repeat 10 yrs/[facility] COLONOSCOPY, DIAGNOSTIC (RECTUM) N/A 06/03/2020 internal hemorrhoids/biopsies show adenomatous polyps/recall 5 years/COLONOSCOPY FLEXIBLE PROXIMAL DIAGNOSTIC performed by Janis Hatch DO at OR [facility] COLONOSCOPY, DIAGNOSTIC (RECTUM) 03/17/2020 poor prep / [facility] DENTAL SURGERY PROCEDURE NEC wisdom teeth x 4 DILATION AND CURETTAGE (D&C) EGD, FLEXIBLE, DIAGNOSTIC 10/04/2016 gastritis/[facility] EGD, FLEXIBLE, DIAGNOSTIC 01/11/2018 eso varices, retained food, repeat 1 yr/[facility] EGD, FLEXIBLE, DIAGNOSTIC N/A 06/03/2020 severe erosive esophagitis/non-bleeding grade II esophageal varices/gastritis/biopsies show inflammatory changes/repeat 3-4 months/ESOPHAGOGASTRODUODENOSCOPY (EGD), FLEXIBLE, TRANSORAL, DIAGNOSTIC per formed by Janis Hatch DO at OR [facility] EGD, FLEXIBLE, DIAGNOSTIC 11/27/2019 eso varices, portal hypertensive gastropathy, gastritis / [facility] EGD, FLEXIBLE, DIAGNOSTIC N/A 08/05/2020 large amount of food in stomach/repeat 1.5 years/ESOPHAGOGASTRODUODENOSCOPY (EGD), FLEXIBLE, TRANSORAL, DIAGNOSTIC performed by Janis Hatch DO at OR [facility] EGD, FLEXIBLE, DIAGNOSTIC N/A 03/10/2021 ESOPHAGOGASTRODUODENOSCOPY (EGD), FLEXIBLE, TRANSORAL, DIAGNOSTIC performed by Kris Blankenship MD at ENDOSCOPY [facility] HYSTEROSCOPY W/BIOPSY AND/OR POLYPECTOMY W/WO D&C N/A 12/27/2021 HYSTEROSCOPY WITH BIOPSY AND/OR POLYPECTOMY WITH OR WITHOUT D&C performed by Concetta Khan MD at OR [facility] HYSTEROSCOPY W/BIOPSY AND/OR POLYPECTOMY W/WO D&C N/A 02/14/2022 HYSTEROSCOPY WITH BIOPSY AND/OR POLYPECTOMY WITH OR WITHOUT D&C performed by Concetta Khan MD at OR [facility] INSERT INTRAUTERINE DEVICE (IUD) N/A 02/14/2022 INSERTION OF INTRAUTERINE DEVICE performed by Concetta Khan MD at OR [facility] IR VENOUS ACCESS MEDIPORT 10/05/2020 PELVIS/HIP JOINT SURGERY NEC teenager aid in walking REMOVE CERVIX CONE W/LOOP ELECTRODE N/A 12/27/2021 LOOP ELECTROSURGERY EXCISION PROCEDURE performed by Concetta Khan MD at OR [facility] REPAIR/GRAFT ACHILLES TENDON age 40 aid in [...] Medications Medication Sig Dispense Refill nystatin (NYSTOP) 826581 UNIT/GM powder Apply topically to affected area 3 times a day. 60 g 1 Dexcom G6 Butcher Head Device Use as directed. To test blood sugars 4 times a day Dx E11.9 1 Each 0 Dexcom G6 Transmitter Use as directed. To test blood sugars 4 times a day. Change every 90 days. Dx E11.9 1 Each 3 OneTouch Verio In Vitro Strip (Glucose Blood) TESTING once daily 100 Strip 3 OneTouch Delica Plus Ttplzk23D TESTING once daily 100 Each 3 Nitroglycerin [...] TABLET BY MOUTH DAILY 30 Tablet 5 Docusate Sodium 100 MG Oral Capsule (Colace) TAKE 1 CAPSULE BY MOUTH ONCE DAILY (Patient not taking: Reported on 12/06/2022) 68 Cap 0 Macrobid 100 MG Oral Capsule Take 1 Capsule by mouth in the morning and 1 Capsule before bedtime. With food until gone. (Patient not taking: Reported on 12/06/2022) 10 Capsule 0 Current Facility-Administered Medications Medication Dose Route Frequency Provider Last Rate Last Admin Albuterol Sulfate (Proventil) (2.5 MG/3ML) 0.083% inhalation solution 2.5 mg 2.5 mg Nebulizer PRN William Morales PA-C Albuterol Sulfate (Proventil) (5 MG/ML) 0.5% *conc* inhalation solution 2.5 mg 2.5 mg NebulizerPRN William Morales PA-C REVIEW OF SYSTEMS: See HPI above; All other findings negative. EXAM: Filed Vitals: 12/06/22 1254 BP: 120/78 Pulse: 62 Temp: 36.6 C (97.9 F) SpO2: 97% GENERAL: Well developed and well nourished in [...] w NALFD Cirrhosis, varices, anemia, constipation. MELD 12. - Continue Protonix to 40mg BID given indigestion, GERD control, Carafate slurry. - Obtain MELD labs q3-6months. - Last EGD 07/2020. She is on Nadolol 40mg daily, goal HR 55-65 (not increased due to vertigo/HAs) - Last Colonoscopy: 05/2020, recall 5 yrs for hx of TA polyps - Hep A immunity: completed series - Hep B immunity: completed series - HCC screening [id number]: AFP and obtain CT liver for next [...] their visit today. RETURN TO CLINIC: 3- 6 months or sooner [facility], [facility] Fernandes documented in this encounter Nursing Notes * Sabine Valencia LPN - 12/06/2022 12:54 PM EDT Patient identified by name and date of . Chief Complaint Patient presents with Follow Up NAFLD, anemia, constipation, cirrhosis of the liver , varices documented in this encounter Plan of Treatment Upcoming Encounters Date Type Specialty Care Team Description 12/06/2022 Laboratory Laboratory Dom [facility] [address] [place] [address] Type 2 diabetes mellitus with hemoglobin A1c goal of less than 8.0% (HCC); Hepatic cirrhosis, unspecified hepatic cirrhosis type, unspecified whether ascites present (HCC) 12/07/2022 Scheduled Telephone ising at Client Executive, [facility] [address] [facility] [place] [address] 12/07/2022 Office Visit Pulmonary LinnetteJoe MD [address] [facility] [place] [address] 12/08/2022 Office Visit Hematology Oncology Tono Sanchez MD [address] [place] [address] 12/09/2022 Imaging Radiology 12/14/2022 Hem/Onc Treatment Hematology Oncology [place], Chair 2 Hem Onc Scenery [address] [place] [address] 12/16/2022 [facility] July Poe, RN [address] [place] [address] 12/28/2022 [facility] Aleyda Campos PA-C [address] [place] [address] 01/04/2023 Hem/Onc Treatment Hematology Oncology [place], Chair 11 Hem Onc Sc[address]ery [address] [place] [address] 01/04/2023 Office Visit Pharmacy Pharmacist2, [facility] [address] [place] [address] 01/25/2023 Hem/Onc Treatment Hematology Oncology [place], Chair 11 Hem Onc [address] [place] [address] 02/10/2023 Office Visit Sleep Disorders Love Francisco DO [address] [place] [address] 03/01/2023 PulmDiagnostic Pulmonary Function [place], Pft [address] [place] [address] 03/08/2023 Office Visit Gastroenterology Lyssa Stout CRNP [address] [place] [address] Scheduled Orders Name Type Priority Associated Diagnoses Orde r Schedule PT INR Lab Routine Hepatic cirrhosis, unspecified hepatic cirrhosis type, unspecified whether ascites present (HCC) Ordered: 12/06/2022 ALPHA-FETOPROTEIN TUMOR MARKER Lab Routine Hepatic cirrhosis, unspecified hepatic cirrhosis type, unspecified whether ascites present (HCC) Ordered: 12/06/2022 Scheduled Procedures Name Priority Associated Diagnoses Date/Ti [...] encounter Medical Devices Implanted Type Area Water And Sewer Systems Supervisor Device Identifier Shelf Expiration Date Model / Serial / Lot Microtech Sure Clip Implanted:Qty: 2 on 06/03/2020 by Janis Hatch, at OR [facility] Clip N/A: Colon 04/21/2022 [facility]-F-26-2 35-C-R / / [id number] documented as of this encounter Visit Diagnoses Diagnosis Hepatic cirrhosis, unspecified hepatic cirrhosis type, unspecified whether ascites present (HCC)- Primary NAFLD (nonalcoholic fatty liver disease) Other chronic nonalcoholic liver disease Type 2 diabetes mellitus with hemoglobin A1c goal of less than 8.0% (HCC) Hepatic cirrhosis, unspecified hepatic cirrhosis type, unspecified whether ascites present (HCC) documented in this encounter Advance Directives Documents on File Type Date Recorded Patient Easement Worker Expl anation Advance Directives and Living Will 04/29/2021 ADVANCE DIRECTIVE / LIVING WILL LIVING WILL AND HEALTH CARE POA Power of Stock Manager 04/29/2021 POWER OF A [facility] [...] the patient have Health Care Power of Stock Manager? No Code Status History Code Status Date Activated Date Inactivated Comments Full Code 12/27/2021 2:50 PM 12/27/2021 8:02 PM This order reflects the patients wishes and were consensually agreed upon. Question Answer Comments Discussion of Advance Directives occurred with: Not Discussed Does the patient have a Living Will? No Does the patient have Health Care Power of Stock Manager? No Full Code 03/31/2021 8:57 PM [...] Syed Bustos Spouse Emergency Contact Care Teams Cancer Genetic Counselor Relationship Specialty Start Date End Date Vanita Dunn MD [address] [place] [address] PCP - General Family Medicine 03/16/21 documented as of this encounter
--- OUTSIDE RECORDS SUMMARY | 2023-05-10 16:58 | External Medical Summary | Summary of Care ---
Author Name Unknown Organization [facility] Address [address] [facility] [place] [address] Phone [phone] Care Team Providers Care Workers Compensation Claims Supervisor Name Role Phone Vanita Dunn MD Primary Care Provid er Reason for Visit * Reason Onset Date Comments [facility]: Maintenance 12/06/2022 Encounter Details Date Type Department Care Team Description 12/06/2022 Scheduled Telephone [facility], [facility] [address] [facility] [place] [address] Coordinator, [facility] [address] [facility] [place] [address] Allergies Active Allergy Reactions Severity Noted Date Comments Adhesive Tape Itching 04/29/2020 Penicillins Rash 02/12/2008 Penicillin G 07/20/2018 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 documented as of this encounter (statuses as of 12/06/2022) Medications Medication Sig Dispensed Refills Start Date End Date Status nystatin (NYSTOP) 220917 UNIT/GM powder Apply topically to affected area 3 times a day. 60 g 1 10/16/2019 Active Dexcom G6 Child Study Team Director Device Use as directed. To test blood sugars 4 times a day Dx E11.9 1 Each 0 09/14/2020 Active Dexcom G6 Transmitter Use as directed. To test blood sugars 4 times a day. Change every 90 days. Dx E11.9 1 Each 3 09/14/2020 Active OneTouch Verio In Vitro Strip (Glucose Blood) TESTING once daily 100 Strip 3 10/29/2020 Active TastyKhanaTouch Delica Plus [id number] TESTING once daily 100 Each 3 10/29/2020 [...] Active Additional Information Patient not taking.Reported on 11/30/2022 Fluticasone Propionate 50 MCG/ACT Nasal Suspension (Flonase)Indication [...] BEFORE BREAKFAST 90 Capsule 1 06/13/2022 Active traMADol HCl 50 MG Oral Tablet (Ultram)Indications :Abdominal pain, generalized Take by mouth 2 Tablets every 6 hours as needed for Pain, Severe (abdominal pain). 40 Tablet 0 06/13/2022 Active Additional Information Patient not taking.Reported on 11/30/2022 Silver sulfADIAZINE 1 % External Cream (Silvadene)Indicati [...] before bedtime. 360 Tablet 1 10/18/2022 Active oxyCODONE HCl 5 MG Oral Tablet (Oxy IR)Indications:Entry Level Account Manager kai pain syndrome Take 1 Tablet by mouth every 6 hours as needed for Pain, Moderate or Pain, Severe. 30 Tablet 0 10/18/2022 Active Additional Information Patient not taking.Reported on 11/30/2022 Lactulose 10 GM/15ML Oral Solution (Constulose) TAKE [...] until gone. 10 Capsule 0 12/04/2022 Active Hospital, Clinic, or Other Facility Administered [...] pain 01/24/2012 01/17/2017 Genetic Sleep Disorder Research Other*[id number] 05/13/2011 04/07/2016 Obstructive sleep apnea 01/18/2011 12/27/19 [...] (Prevnar) 05/02/2019 Pneumococcal Conjugate Vacci ne, 20-valent ([id number]) 10/21/2022 Pneumococcal Polysaccharide PPV23 (Pneumovax) 06/01/2010 Seasonal [...] Miscellaneous Notes * Telephone Encounter - Silvia Squires LPN - 12/06/2022 10:17 AM EDT [facility] Telephonic Nurse Follow-Up Call [facility] Subprogram: Focused Care Management (3-9 months) Follow Up Call Type: 24 hour follow up Acute issue requiring follow-up call: Other: f/u UTI/abx started? Objective: 11/30/2022 10:17 AM 11/23/2022 2:26 PM 11/21/2022 2:21 PM 11/17/2022 3:53 PM 11/03/2022 11:59 AM VITALS ACROSS ENCOUNTERS BP 120/72 128/87 100/60 102/62 114/68 Pulse 76 70 63 62 62 Lab Results Component Value Date BLOOD, URINE - [facility] Large (A) 11/30/2022 PROTEIN, URINE - [facility] 30 (A) 11/30/2022 [...] PLATELET AUTO - [facility] 65 (L) 11/23/2022 No results found for: SODIUM - [facility], [...] Status: No change in symptoms Current Concerns: Spoke with patient today. She reports that they did not pickup the abx but she has appt with [facility] and will stop at pharmacy to pick them up. She does continue with urinary symptoms. Instructed patient to call [facility] if script is not ready at pharmacy. Disposition: Follow up call scheduled for tomorrow with [facility] [employer]head Weigher Future Visits Scheduled: Future Appointments-next 60 days Date/Time Provider Specialty Dept Phone 12/06/2022 1:30 PM (Arrive by 1:15 PM) ZAK Bolton Gastroenterology [phone] 12/07/2022 12:30 PM [facility] Weigher [facility] [phone] 12/07/2022 3:20 PM (Arrive by 3:05 PM) Joe Anglin MD Pulmonary [phone] 12/08/2022 1:15 PM (Arrive by 1:00 PM) Tono Sanchez MD Hematology Oncology [phone] 12/09/2022 2:15 PM (Arrive by 2:00 PM) [address] Radiology [phone] 12/14/2022 1:30 PM CHAIR 12 HEM ONC [facility] Hematology Oncology [phone] 12/16/2022 2:30 PM July Poe RN [facility] [phone] 12/28/2022 10:00 AM Aleyda Campos PA-C [facility] [phone] 01/04/2023 1:30 PM Chair 11 Hem Onc [facility] Hematology Oncology [phone] 01/04/2023 3:40 PM [facility] Sp Pharmacist2 Pharmacy [phone] 01/25/2023 1:30 PM Chair 11 Hem Onc [facility] Hematology Oncology [phone] 02/10/2023 12:00 PM (Arrive by 11:45 AM) Love Francisco DO Sleep Disorders [phone] 03/01/2023 1:00 PM [facility] [place] Pulmonary Function [phone] Silvia Squires LPN documented in this encounter Plan of Treatment Upcoming Encounters Date Type Specialty Care Team Description 12/06/2022 Office Visit Gastroenterology Lyssa Stout CRNP [address] [place] [address] 12/07/2022 Scheduled Telephone [facility] Engineering Advisor, [facility] [place] [address] 12/07/2022 Office Visit Pulmonary LinnetteJoe MD [address] [place] [address] 12/08/2022 Office Visit Hematology Oncology Tono Sanchez MD [address] [place] [address] 12/09/2022 Imaging Radiology 12/14/2022 Hem/Onc Treatment Hematology Oncology 12/16/2022 Home Visit [facility] July Poe, RN [address] [place] [address] 12/28/2022 Home Visit [facility] Aleyda Campos PA-C [address] [place] [address] 01/04/2023 Hem/Onc Treatment Hematology Oncology [place], Chair 11 Hem Onc [address] [place] [address] 01/04/2023 Office Visit Pharmacy Pharmacist2, [facility] Sp [address] [place] [address] 01/25/2023 Hem/Onc Treatment Hematology Oncology [place], Chair 11 Hem Onc [address] [place] [address] 02/10/2023 Office Visit Sleep Disorders Love Francisco DO [address] [place] [address] 03/01/2023 PulmDiagnostic Pulmonary Function [place], P[address] [place] [address] Scheduled Procedures Name Priority Associated Diagnoses Date/Ti [...] this encounter Medical Devices Implanted Type Area Quality Consultant Device Identifier Shelf Expiration Date Model / Serial / Lot Microtech Sure Clip Implanted:Qty: 2 on 06/03/2020 by Janis Hatch DO at OR [facility] Clip N/A: Colon 04/21/2022 [facility]-F-26-2 35-C-R / / [id number] documented as of this encounter Advance Directives Documents on File Type Date Recorded Patient Facility Examiner Expl anation Advance Directives and Living Will 04/29/2021 ADVANCE DIRECTIVE / LIVING WILL LIVING WILL AND HEALTH CARE POA Power of Physical Director 04/29/2021 POWER OF A [facility] [...] the patient have Health Care Power of Physical Director? No Code Status History Code Status Date Activated Date Inactivated Comments Full Code 12/27/2021 2:50 PM 12/27/2021 8:02 PM This order reflects the patients wishes and were consensually agreed upon. Question Answer Comments Discussion of Advance Directives occurred with: Not Discussed Does the patient have a Living Will? No Does the patient have Health Care Power of Physical Director? No Full Code 03/31/2021 8:57 PM [...] Agents on File Name Relationship Healthcare Agent [facility] p Communication Syed Bustos Spouse Emergency Contact Care Teams Workers Compensation Claims Supervisor Relationship Specialty Start Date End Date Mona, Vanita Carissa Chipe, MD [address] [place] [phone] PCP - General Family Medicine 03/16/21 documented as of this encounter
--- OUTSIDE RECORDS SUMMARY | 2023-05-10 16:58 | External Medical Summary | Summary of Care ---
Author Name Unknown Organization [facility] Address [address] [facility] [place] [address] Phone [phone] Care Team Providers Care Reservationist Name Role Phone Vanita Dunn MD Primary Care Provid er Reason for Visit * Reason Comments Follow Up NAFLD, anemia, const ipation, cirrhosis of the liver , varices Encounter Details Date Type Department Care Team Description 12/06/2022 Office Visit Gastroenterology, [facility] [address] [place] [address] Lyssa Stout CRNP [address] [facility] [place] [address] Hepatic cirrhosis, unspecified hepatic cirrhosis type, unspecified whether ascites present (HCC)*; NAFLD (nonalcoholic fatty liver disease) Allergies Active Allergy Reactions Severity Noted Date Comments Adhesive Tape Itching 04/29/2020 Penicillins Rash 02/12/2008 Penicillin G 07/20/2018 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 documented as of this encounter (statuses as of 12/06/2022) Medications Medication Sig Dispensed Refills Start Date End Date Status nystatin (NYSTOP) 789741 UNIT/GM powder Apply topically to affected area 3 times a day. 60 g 1 0 Active Dexcom G6 Field Artillery Cannoneer Device Use as directed. To test blood sugars 4 times a day Dx E11.9 1 Each 0 1 Active Dexcom G6 Transmitter Use as directed. To test blood sugars 4 times a day. Change every 90 days. Dx E11.9 1 Each 3 1 Active OneTouch Verio In Vitro Strip (Glucose Blood) TESTING once daily 100 Strip 3 1 Active OneTouch Delica Plus [id number] TESTING once daily 100 Each 3 1 [...] oxyCODONE HCl 5 MG Oral Tablet (Oxy IR)Indications:Process Eng kai pain syndrome Take 1 Tablet by [...] u at lunch, 55 u at dinner. Brcie adjusts prn. Trulicity, metformin Vitamin D deficiency [...] pain 01/24/2012 01/17/2017 Genetic Sleep Disorder Research Other*[id number] 05/13/2011 04/07/2016 Obstructive sleep apnea 01/18/2011 12/27/19 [...] (Prevnar) 05/02/2019 Pneumococcal Conjugate Vacci ne, 20-valent ([id number]) 10/21/2022 Pneumococcal Polysaccharide PPV23 (Pneumovax) 06/01/2010 Seasonal [...] or dark tarry stools 05/11/2021 (seen by [facility] Hepatology, Dr. Sergei Sanchez): 65 year old female with hx ofNASH cirrhosis with portal HTN (G1-2EV on nadolol), THAD (CPAP), DM II, hypothyroidism, HFpEF, DLD who presents to [facility] hepatology clinic for follow up. She was recently admitted to [facility] 03/07/21-03/11/21 with chest/epigastric pain. She was noted [...] depressive disorder, in partial remission ([facility]) 04/04/2019 More recent Dx noted on PL Restrictive lung disease 12/2014 Sleep apnea CPAP Sleep apnea, obstructive Sleep disturbance 01/24/2012 Type 2 diabetes mellitus with hemoglobin A1c goal of less than 8.0% ([facility]) 09/26/2013 ICD-10 update of inactive term UTI (urinary tract infection) 01/27/2012 Noted in 2011 historical Venous insufficiency 01/09/2009 duplicate Family History Problem Relation Age of Onset Heart Disorder Father of [place] at age 61 Diabetes Father Heart Disorder Mother of [place] age 72 Heart Disorder Sister Mi at age 46 Hypertension Sister Cancer No significant family history Arthritis No significant family history Mental Disorder No significant family history Stroke No significant family history Past Surgical History: Procedure Laterality Date BONE DEBRIDEMENT, FIRST 20 CM2 Right 04/16/2020 DEBRIDEMENT SKIN SUBCUTANEOUS TISSUE MUSCLE AND BONE performed by Josh Vazquez MD at OR [facility] DELIVERY 04/20/1982 COLONOSCOPY 04/21/2009 repeat in 10 years COLONOSCOPY, DIAGNOSTIC (RECTUM) 10/04/2016 normal bx, repeat 10 yrs/[facility] COLONOSCOPY, DIAGNOSTIC (RECTUM) N/A 06/03/2020 internal hemorrhoids/biopsies show adenomatous polyps/recall 5 years/COLONOSCOPY FLEXIBLE PROXIMAL DIAGNOSTIC performed by Janis Hatch DO at OR [facility] COLONOSCOPY, DIAGNOSTIC (RECTUM) 03/17/2020 poor prep / [facility] DENTAL SURGERY PROCEDURE NEC wisdom teeth x 4 DILATION AND CURETTAGE (D&C) EGD, FLEXIBLE, DIAGNOSTIC 10/04/2016 gastritis/[facility] EGD, FLEXIBLE, DIAGNOSTIC 01/11/2018 eso varices, retained food, repeat 1 yr/[facility] EGD, FLEXIBLE, DIAGNOSTIC N/A 06/03/2020 severe erosive esophagitis/non-bleeding grade II esophageal varices/gastritis/biopsies show inflammatory changes/repeat 3-4 months/ESOPHAGOGASTRODUODENOSCOPY (EGD), FLEXIBLE, TRANSORAL, DIAGNOSTIC per formed by Janis Hatch DO at OR [facility] EGD, FLEXIBLE, DIAGNOSTIC 11/27/2019 eso varices, portal hypertensive gastropathy, gastritis / [facility] EGD, FLEXIBLE, DIAGNOSTIC N/A 08/05/2020 large amount of food in stomach/repeat 1.5 years/ESOPHAGOGASTRODUODENOSCOPY (EGD), FLEXIBLE, TRANSORAL, DIAGNOSTIC performed by Janis Hatch DO at OR [facility] EGD, FLEXIBLE, DIAGNOSTIC N/A 03/10/2021 ESOPHAGOGASTRODUODENOSCOPY (EGD), FLEXIBLE, TRANSORAL, DIAGNOSTIC performed by Kris Blankenship MD at ENDOSCOPY [facility] HYSTEROSCOPY W/BIOPSY AND/OR POLYPECTOMY W/WO D&C N/A 12/27/2021 HYSTEROSCOPY WITH BIOPSY AND/OR POLYPECTOMY WITH OR WITHOUT D&C performed by Concetta Khan MD at OR [facility] HYSTEROSCOPY W/BIOPSY AND/OR POLYPECTOMY W/WO D&C N/A 02/14/2022 HYSTEROSCOPY WITH BIOPSY AND/OR POLYPECTOMY WITH OR WITHOUT D&C performed by Concetta Khan MD at OR [facility] INSERT INTRAUTERINE DEVICE (IUD) N/A 02/14/2022 INSERTION OF INTRAUTERINE DEVICE performed by Concetta Khan MD at OR [facility] IR VENOUS ACCESS MEDIPORT 10/05/2020 PELVIS/HIP JOINT SURGERY NEC teenager aid in walking REMOVE CERVIX CONE W/LOOP ELECTRODE N/A 12/27/2021 LOOP ELECTROSURGERY EXCISION PROCEDURE performed by Concetta Khan MD at OR [facility] REPAIR/GRAFT ACHILLES TENDON age 40 aid [...] Medications Medication Sig Dispense Refill nystatin (NYSTOP) 210598 UNIT/GM powder Apply topically to affected area 3 times a day. 60 g 1 Dexcom G6 Field Artillery Cannoneer Device Use as directed. To test blood sugars 4 times a day Dx E11.9 1 Each 0 Dexcom G6 Transmitter Use as directed. To test blood sugars 4 times a day. Change every 90 days. Dx E11.9 1 Each 3 OneTouch Verio In Vitro Strip (Glucose Blood) TESTING once daily 100 Strip 3 OneTouch Delica Plus [id number] TESTING once daily 100 Each 3 Nitroglycerin [...] B immunity: completed series - HCC screening [id number]: AFP and obtain CT liver for next [...] 12/06/2022 Laboratory Laboratory [facility] [address] [place] [address] Type 2 diabetes mellitus with hemoglobin A1c goal of less than 8.0% (HCC); Hepatic cirrhosis, unspecified hepatic cirrhosis type, unspecified whether ascites present (HCC) 12/07/2022 Scheduled Telephone ising at Development Coach, [facility] [address] [facility] [place] [address] 12/07/2022 Office Visit Pulmonary [facility]etteJoe [facility] [address] [facility] [place] [address] 12/08/2022 Office Visit Hematology Oncology Tono Sanchez MD [address] [place] [address] 12/09/2022 Imaging Radiology 12/14/2022 Hem/Onc Treatment Hematology Oncology [place], Chair 2 Hem Onc Scenery [address] [place] [address] 12/16/2022 [facility] Visit [facility] July Poe, RN [address] [place] [address] 12/28/2022 Home Visit [facility] Aleyda Campos PA-C [address] [place] [address] 01/04/2023 Hem/Onc Treatment Hematology Oncology [place], Chair 11 Hem Onc Scenery [address] [place] [address] 01/04/2023 Office Visit Pharmacy Pharmacist2, [facility] [address] [place] [address] 01/25/2023 Hem/Onc Treatment Hematology Oncology [place], Chair 11 Hem Onc [address] [place] [address] 02/10/2023 Office Visit Sleep Disorders Love Francisco DO [address] [place] [address] 03/01/2023 PulmDiagnostic Pulmonary Function [place], [address] [place] [address] 03/08/2023 Office Visit Gastroenterology Lyssa Stout CRNP [address] [place] [address] Scheduled Orders Name Type Priority Associated Diagnoses [...] this encounter Medical Devices Implanted Type Area Fuel Dock Attendant Device Identifier Shelf Expiration Date Model / Serial / Lot Microtech Sure Clip Implanted:Qty: 2 on 06/03/2020 by Janis Hatch, at OR [facility] Clip N/A: Colon 04/21/2022 [facility]-F-26-2 35-C-R / / [id number] documented as of this encounter Visit Diagnoses [...] Documents on File Type Date Recorded Patient Trip Follower Expl anation Advance Directives and Living Will 04/29/2021 ADVANCE DIRECTIVE / LIVING WILL LIVING WILL AND HEALTH CARE POA Power of Welder Fitter Apprentice 04/29/2021 POWER OF A [facility] [...] the patient have Health Care Power of Welder Fitter Apprentice? No Code Status History Code Status Date Activated Date Inactivated Comments Full Code 12/27/2021 2:50 PM 12/27/2021 8:02 PM This order reflects the patients wishes and were consensually agreed upon. Question Answer Comments Discussion of Advance Directives occurred with: Not Discussed Does the patient have a Living Will? No Does the patient have Health Care Power of Welder Fitter Apprentice? No Full Code 03/31/2021 8:57 PM [...] on File Name Relationship Healthcare Agent [facility] p Communication Syed Bustos Spouse Emergency Contact Care Teams Reservationist Relationship Specialty Start Date End Date Vanita Dunn MD [address] [place] [address] PCP - General Family Medicine 03/16/21 documented as of this encounter
--- OUTSIDE RECORDS SUMMARY | 2023-05-10 16:58 | External Medical Summary ---
Author Name Unknown Address Unknown Organization K01:[facility] [place] [address] [place] [address] Laboratory Report Ordering Provider Test Date Status ODESSA GUSMAN 12/06/2022 14:08:44 Final Observation Date Value Abnormality Reference (Units ) Status Alpha-Fetoprotein 12/06/2022 14:08:44 6.5 0. 0-8.3 (ng/mL) Final Performing Location [facility] - [address] [place] [id number]
--- OUTSIDE RECORDS SUMMARY | 2023-05-10 16:58 | External Medical Summary | Summary of Care ---
Author Name Unknown Organization [facility] Address [address] [facility] [place] [address] Phone [phone] Care Team Providers Care Global Engineering Manager Name Role Phone Vanita Dunn MD Primary Care Provid er Reason for Visit * Reason Comments Follow Up NAFLD, anemia, const ipation, cirrhosis of the liver , varices Encounter Details Date Type Department Care Team Description 12/06/2022 Office Visit Gastroenterology, [facility] [address] [place] [address] Lyssa Stout CRNP [address] [place] [address] Hepatic cirrhosis, unspecified hepatic cirrhosis type, unspecified whether ascites present (HCC)*; NAFLD (nonalcoholic fatty liver disease) Allergies Active Allergy Reactions Severity Noted Date Comments Adhesive Tape Itching 04/29/2020 Penicillins Rash 02/12/2008 Penicillin G 07/20/2018 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 documented as of this encounter (statuses as of 12/06/2022) Medications Medication Sig Dispensed Refills Start Date End Date Status nystatin (NYSTOP) 429984 UNIT/GM powder Apply topically to affected area 3 times a day. 60 g 1 0 Active Dexcom G6 Electronic Parts Salesperson Device Use as directed. To test blood sugars 4 times a day Dx E11.9 1 Each 0 1 Active Dexcom G6 Transmitter Use as directed. To test blood sugars 4 times a day. Change every 90 days. Dx E11.9 1 Each 3 1 Active OneTouch Verio In Vitro Strip (Glucose Blood) TESTING once daily 100 Strip 3 1 Active OneTouch Delica Plus [id number] TESTING once daily 100 Each 3 1 [...] oxyCODONE HCl 5 MG Oral Tablet (Oxy IR)Indications:Tie Puller kai pain syndrome Take 1 Tablet by [...] pain 01/24/2012 01/17/2017 Genetic Sleep Disorder Research Other*[id number] 05/13/2011 04/07/2016 Obstructive sleep apnea 01/18/2011 12/27/19 [...] (Prevnar) 05/02/2019 Pneumococcal Conjugate Vacci ne, 20-valent ([id number]) 10/21/2022 Pneumococcal Polysaccharide PPV23 (Pneumovax) 06/01/2010 Seasonal [...] or dark tarry stools 05/11/2021 (seen by [facility] Hepatology, Dr. Sergei Sanchez): 65 year old female with hx ofNASH cirrhosis with portal HTN (G1-2EV on nadolol), THAD (CPAP), DM II, hypothyroidism, HFpEF, DLD who presents to [facility] hepatology clinic for follow up. She was recently admitted to [facility] 03/07/21-03/11/21 with chest/epigastric pain. She was noted [...] Recurrent major depressive disorder, in partial remission ([facility]) 04/04/2019 More recent Dx noted on PL Restrictive lung disease 12/2014 Sleep apnea CPAP Sleep apnea, obstructive Sleep disturbance 01/24/2012 Type 2 diabetes mellitus with hemoglobin A1c goal of less than 8.0% ([facility]) 09/26/2013 ICD-10 update of inactive term UTI (urinary tract infection) 01/27/2012 Noted in 2011 historical Venous insufficiency 01/09/2009 duplicate Family History Problem Relation Age of Onset Heart Disorder Father of [place] at age 61 Diabetes Father Heart Disorder Mother of [place] age 72 Heart Disorder Sister Mi at age 46 Hypertension Sister Cancer No significant family history Arthritis No significant family history Mental Disorder No significant family history Stroke No significant family history Past Surgical History: Procedure Laterality Date BONE DEBRIDEMENT, FIRST 20 CM2 Right 04/16/2020 DEBRIDEMENT SKIN SUBCUTANEOUS TISSUE MUSCLE AND BONE performed by Josh Vazquez MD at OR [facility] DELIVERY 04/20/1982 COLONOSCOPY 04/21/2009 repeat in 10 years COLONOSCOPY, DIAGNOSTIC (RECTUM) 10/04/2016 normal bx, repeat 10 yrs/[facility] COLONOSCOPY, DIAGNOSTIC (RECTUM) N/A 06/03/2020 internal hemorrhoids/biopsies show adenomatous polyps/recall 5 years/COLONOSCOPY FLEXIBLE PROXIMAL DIAGNOSTIC performed by Janis Hatch DO at OR [facility] COLONOSCOPY, DIAGNOSTIC (RECTUM) 03/17/2020 poor prep / [facility] DENTAL SURGERY PROCEDURE NEC wisdom teeth x 4 DILATION AND CURETTAGE (D&C) EGD, FLEXIBLE, DIAGNOSTIC 10/04/2016 gastritis/[facility] EGD, FLEXIBLE, DIAGNOSTIC 01/11/2018 eso varices, retained food, repeat 1 yr/[facility] EGD, FLEXIBLE, DIAGNOSTIC N/A 06/03/2020 severe erosive esophagitis/non-bleeding grade II esophageal varices/gastritis/biopsies show inflammatory changes/repeat 3-4 months/ESOPHAGOGASTRODUODENOSCOPY (EGD), FLEXIBLE, TRANSORAL, DIAGNOSTIC per formed by Janis Hatch DO at OR [facility] EGD, FLEXIBLE, DIAGNOSTIC 11/27/2019 eso varices, portal hypertensive gastropathy, gastritis / [facility] EGD, FLEXIBLE, DIAGNOSTIC N/A 08/05/2020 large amount of food in stomach/repeat 1.5 years/ESOPHAGOGASTRODUODENOSCOPY (EGD), FLEXIBLE, TRANSORAL, DIAGNOSTIC performed by Janis Hatch DO at OR [facility] EGD, FLEXIBLE, DIAGNOSTIC N/A 03/10/2021 ESOPHAGOGASTRODUODENOSCOPY (EGD), FLEXIBLE, TRANSORAL, DIAGNOSTIC performed by Kris Blankenship MD at ENDOSCOPY [facility] HYSTEROSCOPY W/BIOPSY AND/OR POLYPECTOMY W/WO D&C N/A 12/27/2021 HYSTEROSCOPY WITH BIOPSY AND/OR POLYPECTOMY WITH OR WITHOUT D&C performed by Concetta Khan MD at OR [facility] HYSTEROSCOPY W/BIOPSY AND/OR POLYPECTOMY W/WO D&C N/A 02/14/2022 HYSTEROSCOPY WITH BIOPSY AND/OR POLYPECTOMY WITH OR WITHOUT D&C performed by Concetta Khan MD at OR [facility] INSERT INTRAUTERINE DEVICE (IUD) N/A 02/14/2022 INSERTION OF INTRAUTERINE DEVICE performed by Concetta Khan MD at OR [facility] IR VENOUS ACCESS MEDIPORT 10/05/2020 PELVIS/HIP JOINT SURGERY NEC teenager aid in walking REMOVE CERVIX CONE W/LOOP ELECTRODE N/A 12/27/2021 LOOP ELECTROSURGERY EXCISION PROCEDURE performed by Concetta Khan MD at OR [facility] REPAIR/GRAFT ACHILLES TENDON age 40 aid [...] Medications Medication Sig Dispense Refill nystatin (NYSTOP) 201503 UNIT/GM powder Apply topically to affected area 3 times a day. 60 g 1 Dexcom G6 Electronic Parts Salesperson Device Use as directed. To test blood sugars 4 times a day Dx E11.9 1 Each 0 Dexcom G6 Transmitter Use as directed. To test blood sugars 4 times a day. Change every 90 days. Dx E11.9 1 Each 3 OneTouch Verio In Vitro Strip (Glucose Blood) TESTING once daily 100 Strip 3 OneTouch Delica Plus [id number] TESTING once daily 100 Each 3 Nitroglycerin [...] B immunity: completed series - HCC screening [id number]: AFP and obtain CT liver for next [...] 6 months or sooner Esteban Grayson Gastroenterology, [facility] documented in this encounter Nursing Notes * Sabine Valencia LPN - 12/06/2022 12:54 PM EDT Patient identified by name and date of . Chief Complaint Patient presents with Follow Up NAFLD, anemia, constipation, cirrhosis of the liver , varices documented in this encounter Plan of Treatment Upcoming Encounters Date Type Specialty Care Team Description 12/07/2022 Scheduled Telephone [facility] Revenue Integrity Analyst, [facility] [address] [place] [address] 12/07/2022 Office Visit Pulmonary Joe Anglin MD [address] [place] [address] 12/08/2022 Office Visit Hematology Oncology Tono Sanchez MD [address] [facility] [place] [address] 12/09/2022 Imaging Radiology 12/14/2022 Hem/Onc Treatment Hematology Oncology [place], Chair 2 Hem On[address] [address] 12/16/2022 [facility] July Poe RN [address] [place] [address] 12/28/2022 Home Visit [facility] Aleyda Campos PA-C [address] [place] [address] 01/04/2023 Hem/Onc Treatment Hematology Oncology [place], Chair 11 Hem Onc Scenery [address] [place] [address] 01/04/2023 Office Visit Pharmacy Pharmacist2, [facility] [address] [place] [address] 01/25/2023 Hem/Onc Treatment Hematology Oncology [place], Chair 11 Hem Onc [address] [place] [address] 02/10/2023 Office Visit Sleep Disorders Love Francisco DO [address] [place] [address] 03/01/2023 PulmDiagnostic Pulmonary Function [place], Pft [address] [place] [address] 03/08/2023 Office Visit Gastroenterology Lyssa Stout CRNP [address] [place] [address] Pending Results Name Type Priority Associated Diagnoses Date /Time PT INR Lab Routine Hepatic cirrhosis, unspecified hepatic cirrhosis type, unspecified whether ascites present (HCC) 12/06/2022 2:08 PM EDT ALPHA-FETOPROTEIN TUMOR MARKER Lab Routine Hepatic cirrhosis, unspecified hepatic cirrhosis type, unspecified whether ascites present (HCC) 12/06/2022 2:08 PM EDT Scheduled Procedures Name Priority Associated [...] this encounter Medical Devices Implanted Type Area Airline Captain Device Identifier Shelf Expiration Date Model / Serial / Lot Microtech Sure Clip Implanted:Qty: 2 on 06/03/2020 by Janis Hatch DO at OR [facility] Clip N/A: Colon 04/21/2022 [facility]-F-26-2 35-C-R / / [id number] documented as of this encounter Visit Diagnoses Diagnosis Hepatic cirrhosis, unspecified hepatic cirrhosis type, unspecified whether ascites present (HCC)- Primary NAFLD (nonalcoholic fatty liver disease) Other chronic nonalcoholic liver disease documented in this encounter Advance Directives Documents on File Type Date Recorded Patient Flow Trader Expl anation Advance Directives and Living Will 04/29/2021 ADVANCE DIRECTIVE / LIVING WILL LIVING WILL AND HEALTH CARE POA Power of Product Handler 04/29/2021 POWER OF A [facility] [...] the patient have Health Care Power of Product Handler? No Code Status History Code Status Date Activated Date Inactivated Comments Full Code 12/27/2021 2:50 PM 12/27/2021 8:02 PM This order reflects the patients wishes and were consensually agreed upon. Question Answer Comments Discussion of Advance Directives occurred with: Not Discussed Does the patient have a Living Will? No Does the patient have Health Care Power of Product Handler? No Full Code 03/31/2021 8:57 PM 04/03/2021 [...] Syed Bustos Spouse Emergency Contact Care Teams Global Engineering Manager Relationship Specialty Start Date End Date Vanita Dunn MD [address], [place] [id number] PCP - General Family Medicine 03/16/21 documented as of this encounter
--- OUTSIDE RECORDS SUMMARY | 2023-05-10 16:58 | External Medical Summary | Summary of Care ---
Author Name Unknown Organization [facility] Address [address] [facility] [place] [address] Phone [phone] Care Team Providers Care Tissue Coordinator Name Role Phone Vanita Dunn MD Primary Care Provid er Reason for Visit * Reason Comments Outpatient Testing Encounter Details Date Type Department Care Team Description 12/06/2022 Laboratory Laboratory, [facility] [address] [facility] [address] [place] [address] Type 2 diabetes mellitus with hemoglobin A1c goal of less than 8.0% (HCC); Hepatic cirrhosis, unspecified hepatic cirrhosis type, unspecified whether ascites present (HCC) Allergies Active Allergy Reactions Severity Noted Date Comments Adhesive Tape Itching 04/29/2020 Penicillins Rash 02/12/2008 Penicillin G 07/20/2018 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 documented as of this encounter (statuses as of 12/06/2022) Medications Medication Sig Dispensed Refills Start Date End Date Status nystatin (NYSTOP) 143125 UNIT/GM powder Apply topically to affected area 3 times a day. 60 g 1 10/16/2019 Active Dexcom G6 Assembly Machine Operator Device Use as directed. To [...] Strip 3 10/29/2020 Active OneTouch Delica Plus [id number] TESTING once daily 100 Each 3 10/29/2020 [...] Additional Information Patient not taking.Reported on 12/06/2022 Hospital, Clinic, or Other Facility Administered Medication [...] pain 01/24/2012 01/17/2017 Genetic Sleep Disorder Research Other*[id number] 05/13/2011 04/07/2016 Obstructive sleep apnea 01/18/2011 12/27/19 [...] (Prevnar) 05/02/2019 Pneumococcal Conjugate Vacci ne, 20-valent ([id number]) 10/21/2022 Pneumococcal Polysaccharide PPV23 (Pneumovax) 06/01/2010 Seasonal [...] Team Description 12/07/2022 Scheduled Telephone [facility] Supervisor Dry Cell Assembly, Brady Decker [address] [place] [address] 12/07/2022 Office Visit Pulmonary Joe Anglin MD [address] [place] [address] 12/08/2022 Office Visit Hematology Oncology Tono Sanchez MD [address] [place] [address] 12/09/2022 Imaging Radiology 12/14/2022 Hem/Onc Treatment Hematology Oncology [place], Chair 2 Hem Onc [facility] 200 [place] [address] 12/16/2022 [facility] July Poe RN [address] [address] 12/28/2022 [facility] Visit [facility] Aleyda Campos PA-C [address] [address] 01/04/2023 Hem/Onc Treatment Hematology Oncology [place], Chair 11 Hem Onc Scenery [address] [place] [address] 01/04/2023 Office Visit Pharmacy Pharmacist2, [facility] [address] [place] [address] 01/25/2023 Hem/Onc Treatment Hematology Oncology [place], Chair 11 Hem Onc Scenery [address] [place] [address] 02/10/2023 Office Visit Sleep Disorders Love Francisco, [address] [place] [address] 03/01/2023 PulmDiagnostic Pulmonary Function [place], Pft [address] [place] [address] 03/08/2023 Office Visit Gastroenterology Lyssa Stout CRNP [address] [place] [address] Pending Results Name Type Priority Associated Diagnoses Date /Time HEMOGLOBIN A1C Lab Routine Type 2 diabetes mellitus with hemoglobin A1c goal of less than 8.0% ([facility]) 12/06/2022 2:08 PM EDT COMPREHENSIVE METABOLIC PANEL Lab Routine Type 2 diabetes mellitus with hemoglobin A1c goal of less than 8.0% ([facility]) 12/06/2022 2:08 PM EDT Scheduled Procedures Name [...] this encounter Medical Devices Implanted Type Area Beverage Specialist Device Identifier Shelf Expiration Date Model / Serial / Lot Microtech Sure Clip Implanted:Qty: 2 on 06/03/2020 by Janis Hatch, DO at OR [facility] Clip N/A: Colon 04/21/2022 [facility]-F-26-2 35-C-R / / [id number] documented as of this encounter Visit Diagnoses Diagnosis Type 2 diabetes mellitus with hemoglobin A1c goal of less than 8.0% (HCC) Hepatic cirrhosis, unspecified hepatic cirrhosis type, unspecified whether ascites present (HCC) documented in this encounter Advance Directives Documents on File Type Date Recorded Patient Master Coastwise Yacht Expl anation Advance Directives and Living Will 04/29/2021 ADVANCE DIRECTIVE / LIVING WILL LIVING WILL AND HEALTH CARE POA Power of Goodwill Ambassador 04/29/2021 POWER OF A [facility] [...] the patient have Health Care Power of Goodwill Ambassador? No Code Status History Code Status Date Activated Date Inactivated Comments Full Code 12/27/2021 2:50 PM 12/27/2021 8:02 PM This order reflects the patients wishes and were consensually agreed upon. Question Answer Comments Discussion of Advance Directives occurred with: Not Discussed Does the patient have a Living Will? No Does the patient have Health Care Power of Goodwill Ambassador? No Full Code 03/31/2021 8:57 PM 04/03/2021 [...] Healthcare Agent [facility] Syed Bustos Spouse Emergency Contact Care Teams Tissue Coordinator Relationship Specialty Start Date End Date Vanita Dunn MD [address] [place] [address] PCP - General Family Medicine 03/16/21 documented as of this encounter
--- OUTSIDE RECORDS SUMMARY | 2023-05-10 16:59 | External Medical Summary ---
Author Name Unknown Address Unknown Organization K01:[facility] [place] [place] [address] [place] [address] Laboratory Report Ordering Provider Test Date Status ZAKIASEANDENNIS 12/06/2022 14:08:44 Final Observation Date Value Abnormality Reference (Units ) Status BUN 12/06/2022 14:08:44 12 6-20 (mg/dL) Final Creatinine 12/06/2022 14:08:44 0.6 0.5-1.0 (mg/dL) Final Glomerular filtration rate/1.73 sq M.predicted [Volume Rate/Area] in Serum, Plasma or Blood by Creatinine-based formula (CKD-EPI) 12/06/2022 14:08:44 >90 >=60 (mL/min) Final Performing Location [facility] [address] [facility] [address]
--- OUTSIDE RECORDS SUMMARY | 2023-05-10 16:59 | External Medical Summary | Summary of Care ---
Author Name Unknown Organization [facility] Address [address] [facility] [place] [address] Phone [phone] Care Team Providers Care Sister Superior Name Role Phone Vanita Dunn MD Primary Care Provid er Reason for Visit * Reason Onset Date Comments [facility]: Maintenance 12/04/2022 Encounter Details Date Type Department Care Team Description 12/04/2022 Scheduled Telephone [facility], [facility] [address] [place] [address] [facility], Nurse [facility] [address] [place] [address] Allergies Active Allergy Reactions Severity Noted Date Comments Adhesive Tape Itching 04/29/2020 Penicillins Rash 02/12/2008 Penicillin G 07/20/2018 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 documented as of this encounter (statuses as of 12/04/2022) Medications Medication Sig Dispensed Refills Start Date End Date Status nystatin (NYSTOP) 984887 UNIT/GM powder Apply topically to affected area 3 times a day. 60 g 1 10/16/2019 Active Dexcom G6 Cmm Programmer Device Use as directed. To test blood sugars 4 times a day Dx E11.9 1 Each 0 09/14/2020 Active Dexcom G6 Transmitter Use as directed. To test blood sugars 4 times a day. Change every 90 days. Dx E11.9 1 Each 3 09/14/2020 Active OneTouch Verio In Vitro Strip (Glucose Blood) TESTING once daily 100 Strip 3 10/29/2020 Active RegaloCardTouch Delica Plus [id number] TESTING once daily 100 Each 3 10/29/2020 [...] oxyCODONE HCl 5 MG Oral Tablet (Oxy IR)Indications:High Court Justice kai pain syndrome Take 1 Tablet by [...] MOUTH DAILY 30 Tablet 5 12/03/2022 Active Nitrofurantoin Monohyd Macro 100 MG Oral Capsule (Macrobid) Take 1 Capsule by mouth in the morning and 1 Capsule before bedtime. Do all this for 5 days. With food until gone. 10 Capsule 0 12/03/2022 12/09/19 23 Active Hospital, Clinic, or Other Facility [...] as of this encounter (statuses as of 12/04/2022) Active Problems Problem Noted Date Hypertensive heart [...] as of this encounter (statuses as of 12/04/2022) Resolved Problems Problem Noted Date Resolved Date [...] current situation. 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 if a rat exterminator plan is made -continue lexapro Generalized weakness [...] pain 01/24/2012 01/17/2017 Genetic Sleep Disorder Research Other*[id number] 05/13/2011 04/07/2016 Obstructive sleep apnea 01/18/2011 12/27/19 [...] as of this encounter (statuses as of 12/04/2022) Immunizations Name Administration Dates Next Due COVID-19 mRNA, LNP-s, No Pre serve, 2-Dose Series (Moderna) 01/05/2022,07/26/2021,12/21/2020,11/09 HEP A - Hepatitis A (Adult > 18 yrs) 09/24/2018, 03/26/2018 Hepatitis B, 20+ yrs 09/24/2018,04/23/2018,03/26 Pneumococcal Conjugate Vacc, 13 Valent (Prevnar) 05/02/2019 Pneumococcal Conjugate Vacci ne, 20-valent ([id number]) 10/21/2022 Pneumococcal Polysaccharide PPV23 (Pneumovax) 06/01/2010 Seasonal [...] encounter Miscellaneous Notes * Telephone Encounter - Yoselin Eastman RN - 12/04/2022 2:56 PM EDT Follow up call related to UTI and sore throat. Pt started on Macrobid for 5 days. Pt was leaving home to go to [place] to pick pulling machine tender antibiotic at time of phone call. Pt alert and oriented. Pt reports her throat feels better on this date. Denies any burning with urination. Has no pain on this date. Denies CP or shortness of breath. Encourage pt to increase PO fluid intake. And may use cough drops to help sore throat. Reminded pt to Call [facility] at with any new or worsening health concerns or problems, red flag symptoms. documented in this encounter Plan of Treatment Upcoming Encounters Date Type Specialty Care Team Description 12/05/2022 Scheduled Telephone [facility] Manager Action, [facility] Scott Decker [address] [place] [address] 12/06/2022 Office Visit Gastroenterology Lyssa Stout CRNP [address] [place] [address] 12/07/2022 Office Visit Pulmonary Joe Anglin MD [address] [place] [address] 12/08/2022 Office Visit Hematology Oncology Tono Sanchez MD [facility] [address] 12/09/2022 Imaging Radiology 12/14/2022 Hem/Onc Treatment Hematology Oncology 12/16/2022 [facility] Visit [facility] July Poe RN [address] [place] [address] 12/28/2022 [facility] Visit [facility] Aleyda Campos PA-C [address] [place] [address] 01/04/2023 Hem/Onc Treatment Hematology Oncology [place], Chair 11 Hem Onc Scenery [facility] [address] 01/04/2023 Office Visit Pharmacy Pharmacist2, [facility] 200 [facility] [place] [address] 01/25/2023 Hem/Onc Treatment Hematology Oncology [place], Chair 11 Hem Onc Scenery 200 [facility] [place] [address] 02/10/2023 Office Visit Sleep Disorders Love Francisco DO [address] [place] [address] 03/01/2023 PulmDiagnostic Pulmonary Function [place], Pft [address] [place] [address] Scheduled Procedures Name Priority Associated Diagnoses Date/Ti [...] this encounter Medical Devices Implanted Type Area Consumer Marketing Analyst Device Identifier Shelf Expiration Date Model / Serial / Lot Microtech Sure Clip Implanted:Qty: 2 on 06/03/2020 by Janis Hatch DO at OR [facility] Clip N/A: Colon 04/21/2022 [facility]-F-26-2 35-C-R / / [id number] documented as of this encounter Advance Directives Documents on File Type Date Recorded 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 No Code Status History Code Status Date Activated Date Inactivated Comments Full Code 12/27/2021 2:50 PM 12/27/2021 8:02 PM This order reflects the patients wishes and were consensually agreed upon. Question Answer Comments Discussion of Advance Directives occurred with: Not Discussed Does the patient have a Living Will? No Does the patient have Health Care Power of Back Shoe Worker? No Full Code 03/31/2021 8:57 PM [...] Syed Bustos Spouse Emergency Contact Care Teams Sister Superior Relationship Specialty Start Date End Date Vanita Dunn MD [address], [place] [phone] PCP - General Family Medicine 03/16/21 documented as of this encounter
--- OUTSIDE RECORDS SUMMARY | 2023-05-10 16:59 | External Medical Summary ---
Author Name Unknown Address Unknown Organization K0G:[facility] [place] [address] - [address] [place] [address] Laboratory Report Ordering Provider Test Date Status VALENTINE GUSMANHON 12/06/2022 14:08:44 Final Observation Date Value Abnormality Reference (Units ) Status PT 12/06/2022 14:08:44 17.3 Above high normal 11 .6-15.2 (seconds) Final INR 12/06/2022 14:08:44 1.4 Above high normal 0. 8-1.2 Final Performing Location [facility] [place] [address] - [address] [place] [address]
--- OUTSIDE RECORDS SUMMARY | 2023-05-10 16:59 | External Medical Summary | Summary of Care ---
Author Name Unknown Organization [facility] Address [address] [facility] [place] [address] Phone [phone] Care Team Providers Care Butcher Supervisor Name Role Phone Vanita Dunn MD Primary Care Provid er Reason for Visit * Reason Onset Date Comments Medication Question 12/04/2022 Encounter Details Date Type Department Care Team Description 12/04/2022 Telephone Family Practice [address] [facility], [place] [address] [place] [address] Jackie Treadwell MD [address] [place] [address] Medication Question Allergies Active Allergy Reactions Severity Noted Date Comments Adhesive Tape Itching 04/29/2020 Penicillins Rash 02/12/2008 Penicillin G 07/20/2018 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 documented as of this encounter (statuses as of 12/04/2022) Medications Medication Sig Dispensed Refills Start Date End Date Status nystatin (NYSTOP) 662235 UNIT/GM powder Apply topically to affected area 3 times a day. 60 g 1 0 Active Dexcom G6 Estimator And Drafter Supervisor Device Use as directed. To test blood sugars 4 times a day Dx E11.9 1 Each 0 1 Active Dexcom G6 Transmitter Use as directed. To test blood sugars 4 times a day. Change every 90 days. Dx E11.9 1 Each 3 1 Active OneTouch Verio In Vitro Strip (Glucose Blood) TESTING once daily 100 Strip 3 1 Active Idea ShowerTouch Delica Plus [id number] TESTING once daily 100 Each 3 1 [...] BEFORE BREAKFAST 90 Capsule 1 2 Active traMADol HCl 50 MG Oral Tablet (Ultram)Indications :Abdominal pain, generalized Take by mouth 2 Tablets every 6 hours as needed for Pain, Severe (abdominal pain). 40 Tablet 0 2 Active Additional Information Patient not taking.Reported on [...] before bedtime. 360 Tablet 1 3 Active oxyCODONE HCl 5 MG Oral Tablet (Oxy IR)Indications:Due Diligence Coordinator kai pain syndrome Take 1 Tablet by mouth every 6 hours as needed for Pain, Moderate or Pain, Severe. 30 Tablet 0 3 Active Additional Information Patient not [...] until gone. 10 Capsule 0 3 Active Nitrofurantoin Monohyd Macro 100 MG Oral Capsule (Macrobid) Take 1 Capsule by mouth in the morning and 1 Capsule before bedtime. Do all this for 5 days. With food until gone. 10 Capsule 0 3 12/05/19 23 Discontinu ed(Refill) Hospital, Clinic, or Other [...] 02/15/2021 10/01/2021 AMS (altered mental status) 02/04/2021 052 05/2021 Cardiomegaly 01/30/2021 09/13/2021 SOB (shortness of [...] current situation. 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 if a penitentiary plan is made -continue lexapro Generalized weakness [...] pain 01/24/2012 01/17/2017 Genetic Sleep Disorder Research Other*[id number] 05/13/2011 04/07/2016 Obstructive sleep apnea 01/18/2011 12/27/19 [...] (Prevnar) 05/02/2019 Pneumococcal Conjugate Vacci ne, 20-valent ([id number]) 10/21/2022 Pneumococcal Polysaccharide PPV23 (Pneumovax) 06/01/2010 Seasonal [...] encounter Miscellaneous Notes * Telephone Encounter - Jackie Treadwell MD - 12/04/2022 6:43 PM EDT Tried calling [facility] pharmacy to check why the escript that was sent yesterday did not go through; no answer and pharmacy was closed. Called pt and spoke to pt's who asked to resent the scriptto same pharmacy and he will fill the script tomorrow am; Advised pt to call office if the escript did not received by [facility] documented in this encounter Plan of Treatment Upcoming Encounters Date Type Specialty Care Team Description 12/05/2022 Scheduled Telephone [facility] [employer], [place] [address] [place] [address] 12/06/2022 Office Visit Gastroenterology Lyssa Stout CRNP [address] [place] [address] 12/07/2022 Office Visit Pulmonary Joe Anglin MD [address] [place] [address] 12/08/2022 Office Visit [facility]emat[facility]cology [facility] [address] 12/09/2022 Imaging Radiology 12/14/2022 Hem/Onc Treatment Hematology Oncology 12/16/2022 [facility] Visit [facility] July Poe RN [address] [place] [address] 12/28/2022 [facility] Visit [facility] Aleyda Campos PA-C [address] [place] [address] 01/04/2023 Hem/Onc Treatment Hematology Oncology [place], Chair 11 Hem Onc Scenery 200 [facility] [place] [address] 01/04/2023 Office Visit Pharmacy Pharmacist2, [facility] [address] [facility] [place] [address] 01/25/2023 Hem/Onc Treatment Hematology Oncology [place], Chair 11 Hem Onc Scenery 200 [facility] TO [facility] [place] [address] 02/10/2023 Office Visit Sleep Disorders Love Francisco DO [address] [place] [address] 03/01/2023 PulmDiagnostic Pulmonary Function [place], Pft [address] [place] [address] Scheduled Procedures Name Priority Associated Diagnoses Date/Ti [...] this encounter Medical Devices Implanted Type Area Casualty Underwriter Device Identifier Shelf Expiration Date Model / Serial / Lot Microtech Sure Clip Implanted:Qty: 2 on 06/03/2020 by Janis Hatch DO at OR [facility] Clip N/A: Colon 04/21/2022 [facility]-F-26-2 35-C-R / / [id number] documented as of this encounter Visit Diagnoses Diagnosis Acute cystitis without hematuria- Primary Acute cystitis documented in this encounter Advance Directives Documents on File Type Date Recorded Patient Back Facer Expl anation Advance Directives and Living Will 04/29/2021 ADVANCE DIRECTIVE / LIVING WILL LIVING WILL AND HEALTH CARE POA Power of Form Carpenter 04/29/2021 POWER OF A [facility] [...] the patient have Health Care Power of Form Carpenter? No Code Status History Code Status Date Activated Date Inactivated Comments Full Code 12/27/2021 2:50 PM 12/27/2021 8:02 PM This order reflects the patients wishes and were consensually agreed upon. Question Answer Comments Discussion of Advance Directives occurred with: Not Discussed Does the patient have a Living Will? No Does the patient have Health Care Power of Form Carpenter? No Full Code 03/31/2021 8:57 PM 04/03/2021 [...] Syed Bustos Spouse Emergency Contact Care Teams Butcher Supervisor Relationship Specialty Start Date End Date Vanita Dunn MD [address] [place], [place] [id number] PCP - General Family Medicine 03/16/21 documented as of this encounter
--- OUTSIDE RECORDS SUMMARY | 2023-05-10 16:59 | External Medical Summary | Summary of Care ---
Author Name Unknown Organization [facility] Address [address] [facility] [place] [address] Phone [phone] Care Team Providers Care Wildlife Biologist Name Role Phone Vanita Dunn MD Primary Care Provid er Reason for Visit * Reason Onset Date Comments [facility]: Maintenance 12/05/2022 Encounter Details Date Type Department Care Team Description 12/05/2022 Scheduled Telephone [facility], [facility] 132 [facility] [place] [address] Coordinator, [facility] 132 [facility] [place] [address] Allergies Active Allergy Reactions Severity Noted Date Comments Adhesive Tape Itching 04/29/2020 Penicillins Rash 02/12/2008 Penicillin G 07/20/2018 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 documented as of this encounter (statuses as of 12/05/2022) Medications Medication Sig Dispensed Refills Start Date End Date Status nystatin (NYSTOP) 441394 UNIT/GM powder Apply topically to affected area 3 times a day. 60 g 1 10/16/2019 Active Dexcom G6 Lead Sustainability Specialist Device Use as directed. To test blood sugars 4 times a day Dx E11.9 1 Each 0 09/14/2020 Active Dexcom G6 Transmitter Use as directed. To test blood sugars 4 times a day. Change every 90 days. Dx E11.9 1 Each 3 09/14/2020 Active OneTouch Verio In Vitro Strip (Glucose Blood) TESTING once daily 100 Strip 3 10/29/2020 Active PixableTouch Delica Plus [id number] TESTING once daily 100 Each 3 10/29/2020 [...] oxyCODONE HCl 5 MG Oral Tablet (Oxy IR)Indications:Institutional Aide kai pain syndrome Take 1 Tablet by [...] as of this encounter (statuses as of 12/05/2022) Active Problems Problem Noted Date Hypertensive heart [...] as of this encounter (statuses as of 12/05/2022) Resolved Problems Problem Noted Date Resolved Date [...] pain 01/24/2012 01/17/2017 Genetic Sleep Disorder Research Other*[id number] 05/13/2011 04/07/2016 Obstructive sleep apnea 01/18/2011 12/27/19 [...] as of this encounter (statuses as of 12/05/2022) Immunizations Name Administration Dates Next Due COVID-19 mRNA, LNP-s, No Pre serve, 2-Dose Series (Moderna) 01/05/2022,07/26/2021,12/21/2020,11/09 HEP A - Hepatitis A (Adult > 18 yrs) 09/24/2018, 03/26/2018 Hepatitis B, 20+ yrs 09/24/2018,04/23/2018,03/26 Pneumococcal Conjugate Vacc, 13 Valent (Prevnar) 05/02/2019 Pneumococcal Conjugate Vacci ne, 20-valent ([id number]) 10/21/2022 Pneumococcal Polysaccharide PPV23 (Pneumovax) 06/01/2010 Seasonal [...] Miscellaneous Notes * Telephone Encounter - Silvia Squires, DEVAN - 12/05/2022 1:32 PM EDT [facility] Tele[facility]onic Nurse Follow-Up Call [facility] Subprogram: Focused Care Management (3-9 months) Follow Up Call Type: Routine follow up call / Status Check Acute issue requiring follow-up call: Other: f/u sore throat/UTI sx Objective: 11/30/2022 10:17 AM 11/23/2022 2:26 PM [...] made during acute episode Subjective: Condition Status: Unknown Current Concerns: Called to speak with patient but she was not home at the time of call. Spoke to caregiver/family member and she reports that patient did not c/o sore throat or UTI sx today. Disposition: Issue resolved. All appropriate follow up scheduled. Future Visits Scheduled: Future Appointments-next 60 days Date/Time Provider Specialty Dept Phone 12/06/2022 1:30 PM (Arrive by 1:15 PM) ZAK Bolton Gastroenterology [phone] 12/07/2022 3:20 PM (Arrive by 3:05 PM) Joe Anglin MD Pulmonary [phone] 12/08/2022 1:15 PM (Arrive by 1:00 PM) Tono Sanchez MD Hematology Oncology [phone] 12/09/2022 2:15 PM (Arrive by 2:00 PM) [address] Radiology [phone] 12/14/2022 1:30 PM [facility] 12 HEM ONC [facility] Hematology Oncology [phone] 12/16/2022 2:30 PM July Poe RN [facility] [phone] 12/28/2022 10:00 AM Aleyda Campos PA-C [facility] [phone] 01/04/2023 1:30 PM Chair 11 Hem Onc [facility] Hematology Oncology [phone] 01/04/2023 3:40 PM [facility] Pharmacist2 Pharmacy [phone] 01/25/2023 1:30 PM Chair 11 Hem Onc [facility] Hematology Oncology [phone] 02/10/2023 12:00 PM (Arrive by 11:45 AM) Love Francisco, DO Sleep Disorders [phone] 03/01/2023 1:00 PM Pft [place] Pulmonary Function [phone] Silvia Squires LPN documented in this encounter Plan of Treatment Upcoming Encounters Date Type Specialty Care Team Description 12/06/2022 Office Visit Gastroenterology Lyssa Stout CRNP [address] [place] [address] 12/07/2022 Office Visit Pulmonary LinnetteJoe MD [address] [facility] [address] 12/08/2022 Office Visit Hematology Oncology Tono Sanchez MD [address] [place] [address] 12/09/2022 Imaging Radiology 12/14/2022 Hem/Onc Treatment Hematology Oncology 12/16/2022 Home Visit [facility] July Poe RN [address] [place] [address] 12/28/2022 [facility] Visit [facility] Aleyda Campos PA-C [address] [place] [address] 01/04/2023 Hem/Onc Treatment Hematology Oncology [place], Chair 11 Hem Onc Scenery [address] [place] [address] 01/04/2023 Office Visit Pharmacy Pharmacist2, [facility] Sp [address] [place] [address] 01/25/2023 Hem/Onc Treatment Hematology Oncology [place], Chair 11 Hem Onc [address] [place] [address] 02/10/2023 Office Visit Sleep Disorders Love Francisco, DO [address] [place] [address] 03/01/2023 PulmDiagnostic Pulmonary Function [place], Pft [address] [place] [address] Scheduled Procedures Name Priority Associated Diagnoses Date/Ti [...] this encounter Medical Devices Implanted Type Area Mailroom Supervisor Device Identifier Shelf Expiration Date Model / Serial / Lot Microtech Sure Clip Implanted:Qty: 2 on 06/03/2020 by Janis Hatch DO at OR [facility] Clip N/A: Colon 04/21/2022 [facility]-F-26-2 35-C-R / / [id number] documented as of this encounter Advance Directives Documents on File Type Date Recorded Patient Family Medicine Physician Expl anation Advance Directives and Living Will 04/29/2021 ADVANCE DIRECTIVE / LIVING WILL LIVING WILL AND HEALTH CARE POA Power of Grease Man 04/29/2021 POWER [facility] A [facility] [...] the patient have Health Care Power of Grease Man? No Code Status History Code Status Date Activated Date Inactivated Comments Full Code 12/27/2021 2:50 PM 12/27/2021 8:02 PM This order reflects the patients wishes and were consensually agreed upon. Question Answer Comments Discussion of Advance Directives occurred with: Not Discussed Does the patient have a Living Will? No Does the patient have Health Care Power of Grease Man? No Full Code 03/31/2021 8:57 PM 04/03/2021 [...] Syed Bustos Spouse Emergency Contact Care Teams Wildlife Biologist Relationship Specialty Start Date End Date Vanita Dunn MD [address] [place] [facility] [place] [address] PCP - General Family Medicine 03/16/21 documented as of this encounter
--- OUTSIDE RECORDS SUMMARY | 2023-05-10 17:00 | External Medical Summary | Summary of Care ---
Author Name Unknown Organization [facility] Address [address] [facility] [place] [address] Phone [phone] Care Team Providers Care Director Child Name Role Phone Vanita Dunn MD Primary Care Provid er Reason for Visit * Reason Onset Date Comments [facility]: Maintenance 12/03/2022 Encounter Details Date Type Department Care Team Description 12/03/2022 Scheduled Telephone [facility], [facility] [address] [place] [address] [facility], Nurse [facility] [address] [place] [address] Allergies Active Allergy Reactions Severity Noted Date Comments Adhesive Tape Itching 04/29/2020 Penicillins Rash 02/12/2008 Penicillin G 07/20/2018 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 documented as of this encounter (statuses as of 12/03/2022) Medications Medication Sig Dispensed Refills Start Date End Date Status nystatin (NYSTOP) 523068 UNIT/GM powder Apply topically to affected area 3 times a day. 60 g 1 10/16/2019 Active Dexcom G6 Safety Teacher Device Use as directed. To test blood sugars 4 times a day Dx E11.9 1 Each 0 09/14/2020 Active Dexcom G6 Transmitter Use as directed. To test blood sugars 4 times a day. Change every 90 days. Dx E11.9 1 Each 3 09/14/2020 Active OneTouch Verio In Vitro Strip (Glucose Blood) TESTING once daily 100 Strip 3 10/29/2020 Active GoFishTouch Delica Plus Glzbli94C TESTING once daily 100 Each 3 10/29/2020 [...] oxyCODONE HCl 5 MG Oral Tablet (Oxy IR)Indications:Online Activist kai pain syndrome Take 1 Tablet by [...] as of this encounter (statuses as of 12/03/2022) Active Problems Problem Noted Date Hypertensive heart [...] as of this encounter (statuses as of 12/03/2022) Resolved Problems Problem Noted Date Resolved Date [...] current situation. 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 if a meterman plan is made -continue lexapro Generalized weakness [...] pain 01/24/2012 01/17/2017 Genetic Sleep Disorder Research Other*[id number] 05/13/2011 04/07/2016 Obstructive sleep apnea 01/18/2011 12/27/19 [...] as of this encounter (statuses as of 12/03/2022) Immunizations Name Administration Dates Next Due COVID-19 mRNA, LNP-s, No Pre serve, 2-Dose Series (Moderna) 01/05/2022,07/26/2021,12/21/2020,11/09 HEP A - Hepatitis A (Adult > 18 yrs) 09/24/2018, 03/26/2018 Hepatitis B, 20+ yrs 09/24/2018,04/23/2018,03/26 Pneumococcal Conjugate Vacc, 13 Valent (Prevnar) 05/02/2019 Pneumococcal Conjugate Vacci ne, 20-valent ([id number]) 10/21/2022 Pneumococcal Polysaccharide PPV23 (Pneumovax) 06/01/2010 Seasonal [...] encounter Miscellaneous Notes * Telephone Encounter - Zoe Bradshaw RN - 12/03/2022 2:32 PM EDT Triage- pts urine was addressed yesterday. Appeared she was asymptomatic & was told to continueto monitor. Pt calling today reporting burning with urination. TT to [facility] She will call in Macrobid x 5 days. Spoke with patient about the above. She states the burning is back & uncomfortable. She also reports a sore throat on and off. Instructed to try warm salt water rinse or throat spray. No other respiratory symptoms noted. No fever, cough. Will continue to monitor. Added for f/u call tomorrow & Monday Patient encouraged to call [facility] at Home intake phone number for all urgent, non-emergent health issues, phone number provided. documented in this encounter Plan of Treatment Upcoming Encounters Date Type Specialty Care Team Description 12/04/2022 Scheduled Telephone [facility], Nurse [facility] [address] [place] [address] 12/05/2022 Scheduled Telephone [facility] Faculty Support Coordinator, [facility] [address] [place] [address] 12/06/2022 Office Visit Gastroenterology Lyssa Stout CRNP [address] [place] [address] 12/07/2022 Office Visit Pulmonary Joe Anglin MD [address] [place] [address] 12/08/2022 Office Visit Hematology Oncology [facility]ono [facility] [address] 12/09/2022 Imaging Radiology 12/14/2022 Hem/Onc Treatment Hematology Oncology 12/16/2022 [facility] Visit [facility] July Poe RN [address] [place] [address] 12/28/2022 [facility] Visit [facility] Aleyda Campos PA-C [address] [place] [address] 01/04/2023 Hem/Onc Treatment Hematology Oncology [place], Chair 11 Hem Onc [facility] [address] 01/04/2023 Office Visit [facility] Pharmacist2, [facility] [address] 01/25/2023 Hem/Onc Treatment Hematology Oncology [place], Chair 11 Hem Onc [address] [place] [address] 02/10/2023 Office Visit Sleep Disorders Love Francisco, DO [address] [place] [address] 03/01/2023 PulmDiagnostic Pulmonary Function [place], Pft [address] [place] [address] Scheduled Procedures Name Priority Associated Diagnoses Date/Ti [...] this encounter Medical Devices Implanted Type Area Fur Trimmer Device Identifier Shelf Expiration Date Model / Serial / Lot Microtech Sure Clip Implanted:Qty: 2 on 06/03/2020 by Janis Hatch DO at OR [facility] Clip N/A: Colon 04/21/2022 [facility]-F-26-2 35-C-R / / [id number] documented as of this encounter Advance Directives Documents on File Type Date Recorded 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 No Code Status History Code Status Date Activated Date Inactivated Comments Full Code 12/27/2021 2:50 PM 12/27/2021 8:02 PM This order reflects the patients wishes and were consensually agreed upon. Question Answer Comments Discussion of Advance Directives occurred with: Not Discussed Does the patient have a Living Will? No Does the patient have Health Care Power of Clinical Appeals Rn? No Full Code 03/31/2021 8:57 PM 04/03/2021 [...] Syed Bustos Spouse Emergency Contact Care Teams Director Child Relationship Specialty Start Date End Date Vanita Dunn MD [address] [place] [address] PCP - General Family Medicine 03/16/21 documented as of this encounter
--- OUTSIDE RECORDS SUMMARY | 2023-05-10 17:00 | External Medical Summary | Summary of Care ---
Author Name Unknown Organization [facility] Address [address] [facility] [place] [address] Phone [phone] Care Team Providers Care Supervisor Roller Shop Name Role Phone Vanita Dunn MD Primary Care Provid er Reason for Visit * Reason Onset Date Comments [facility]: Maintenance 12/02/2022 Encounter Details Date Type Department Care Team Description 12/02/2022 Scheduled Telephone [facility], [facility] [address] [facility] [place] [address] Coordinator, [facility] 132 [facility] [place] [address] Allergies Active Allergy Reactions Severity Noted Date Comments Adhesive Tape Itching 04/29/2020 Penicillins Rash 02/12/2008 Penicillin G 07/20/2018 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 documented as of this encounter (statuses as of 12/02/2022) Medications Medication Sig Dispensed Refills Start Date End Date Status nystatin (NYSTOP) 025559 UNIT/GM powder Apply topically to affected area 3 times a day. 60 g 1 10/16/2019 Active Dexcom G6 Geophysical Observer Device Use as directed. To test blood sugars 4 times a day Dx E11.9 1 Each 0 09/14/2020 Active Dexcom G6 Transmitter Use as directed. To test blood sugars 4 times a day. Change every 90 days. Dx E11.9 1 Each 3 09/14/2020 Active OneTouch Verio In Vitro Strip (Glucose Blood) TESTING once daily 100 Strip 3 10/29/2020 Active GreenextTouch Delica Plus [id number] TESTING once daily 100 Each 3 10/29/2020 [...] once weekly 6 mL 5 02/22/2022 Active Aspirin 81 MG Oral Tablet Chewable CHEW AND SWALLOW 1 TABLET BY MOUTH ONCE DAILY 30 Tablet 8 03/12/2022 Active Spironolactone 25 MG Oral Tablet (Aldactone) [...] oxyCODONE HCl 5 MG Oral Tablet (Oxy IR)Indications:Chemistry Lab Instructor kai pain syndrome Take 1 Tablet by [...] for Wheezing. 120 mL 1 11/21/2022 Active Hospital, Clinic, or Other Facility Administered [...] as of this encounter (statuses as of 12/02/2022) Active Problems Problem Noted Date Hypertensive heart [...] as of this encounter (statuses as of 12/02/2022) Resolved Problems Problem Noted Date Resolved Date [...] 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 if a terminal gauger supervisor plan is made -continue lexapro Generalized [...] pain 01/24/2012 01/17/2017 Genetic Sleep Disorder Research Other*[id number] 05/13/2011 04/07/2016 Obstructive sleep apnea 01/18/2011 12/27/19 [...] as of this encounter (statuses as of 12/02/2022) Immunizations Name Administration Dates Next Due COVID-19 mRNA, LNP-s, No Pre serve, 2-Dose Series (Moderna) 01/05/2022,07/26/2021,12/21/2020,11/09 HEP A - Hepatitis A (Adult > 18 yrs) 09/24/2018, 03/26/2018 Hepatitis B, 20+ yrs 09/24/2018,04/23/2018,03/26 Pneumococcal Conjugate Vacc, 13 Valent (Prevnar) 05/02/2019 Pneumococcal Conjugate Vacci ne, 20-valent ([id number]) 10/21/2022 Pneumococcal Polysaccharide PPV23 (Pneumovax) 06/01/2010 Seasonal [...] encounter Miscellaneous Notes * Telephone Encounter - Melissa Muhammad LPN - 12/02/2022 2:24 PM EDT aware and verbalizes understanding * Telephone Encounter - Carlos Khoury DO - 12/02/2022 2:16 PM EDT Continue to monitor symptoms. If they continue improving, no treatment indicated. * Telephone Encounter - Melissa Muhammad LPN - 12/02/2022 1:40 PM EDT Images from the original note were not included. [facility] Telephonic Nurse Follow-Up Call [facility] Subprogram: Focused Care Management (3-9 months) Follow Up Call Type: Routine follow up call / Status Check Acute issue requiring follow-up call: Complicated UTI Objective: 11/30/2022 10:17 AM 11/23/2022 2:26 PM [...] symptoms but not at baseline Current Concerns: Call to patient who states she is fine. Burning has decreased, and seems to be getting a little security system analyst in color. Denies fever. Aware to call for any new or worsening symptoms. Results forwarded to care team for further advice. Disposition: Routed to [facility] and/or [facility] Care Team for further advice Future Visits Scheduled: Future Appointments-next 60 days Date/Time Provider Specialty Dept Phone 12/06/2022 1:30 PM (Arrive by 1:15 PM) ZAK Bolton Gastroenterology [phone] 12/07/2022 3:20 PM (Arrive by 3:05 PM) Joe Anglin MD Pulmonary [phone] 12/08/2022 1:15 PM (Arrive by 1:00 PM) Tono Sanchez MD Hematology Oncology [phone] 12/09/2022 2:15 PM (Arrive by 2:00 PM) [email or web address] Radiology [phone] 12/14/2022 1:30 PM CHAIR 12 HEM ONC [facility] Hematology Oncology [phone] 12/16/2022 2:30 PM July Poe RN [facility] [phone] 12/28/2022 10:00 AM Aleyda Campos PA-C [facility] [phone] 01/04/2023 1:30 PM Chair 11 Hem Onc [facility] Hematology Oncology [phone] 01/04/2023 3:40 PM [facility] Pharmacist2 Pharmacy [phone] 01/25/2023 1:30 PM Chair 11 Hem Onc [facility] Hematology Oncology [phone] 02/10/2023 12:00 PM (Arrive by 11:45 AM) Love Farncisco, Sleep Disorders [phone] 03/01/2023 1:00 PM Pft [place] Pulmonary Function [phone] Melissa Muhammad LPN documented in this encounter Plan of Treatment Upcoming Encounters Date Type Specialty Care Team Description 12/06/2022 Office Visit Gastroenterology Lyssa Stout CRNP [address] [place] [address] 12/07/2022 Office Visit Pulmonary Joe Anglin MD [address] [place] [address] 12/08/2022 Office Visit Hematology Oncology Tono Sanchez MD [address] [place] [address], [place] [address] 12/09/2022 Imaging Radiology 12/14/2022 Hem/Onc Treatment Hematology Oncology 12/16/2022 Home Visit [facility] July Poe RN [address] [place] [address] 12/28/2022 Home Visit [facility] Aleyda Campos PA-C [address] [place] [address] 01/04/2023 Hem/Onc Treatment Hematology Oncology [place], Chair 11 Hem Onc [address] [place] [address] 01/04/2023 Office Visit Pharmacy Pharmacist2, [facility] Sp [address] [place] [address] 01/25/2023 Hem/Onc Treatment Hematology Oncology [place], Chair 11 Hem Onc [address] [place] [address] 02/10/2023 Office Visit Sleep Disorders Love Francisco DO [address] [place] [address] 03/01/2023 PulmDiagnostic Pulmonary Function [place], Pft [address] [place] [address] Scheduled Procedures Name Priority Associated Diagnoses Date/Ti [...] this encounter Medical Devices Implanted Type Area Inside Sales Lead Device Identifier Shelf Expiration Date Model / Serial / Lot Microtech Sure Clip Implanted:Qty: 2 on 06/03/2020 by Janis Hatch DO at OR [facility] Clip N/A: Colon 04/21/2022 RO[facility]-F-26-2 35-C-R / / [id number] documented as of this encounter Advance Directives Documents on File Type Date Recorded Patient Etl Bi Developer Expl anation Advance Directives and Living Will 04/29/2021 ADVANCE DIRECTIVE / LIVING WILL LIVING WILL AND HEALTH CARE POA Power of Mystery Shopper 04/29/2021 [facility]OWER [facility] A [facility] [...] the patient have Health Care Power of Mystery Shopper? No Code Status History Code Status Date Activated Date Inactivated Comments Full Code 12/27/2021 2:50 PM 12/27/2021 8:02 PM This order reflects the patients wishes and were consensually agreed upon. Question Answer Comments Discussion of Advance Directives occurred with: Not Discussed Does the patient have a Living Will? No Does the patient have Health Care Power of Mystery Shopper? No Full Code 03/31/2021 8:57 PM 04/03/2021 [...] File Name Relationship Healthcare Agent [facility] p Communication Syed Juli Spouse Emergency Contact Care Teams Supervisor Roller Shop Relationship Specialty Start Date End Date aVnita Dunn MD [address] [place] [address] PCP - General Family Medicine 03/16/21 documented as of this encounter
--- OUTSIDE RECORDS SUMMARY | 2023-05-10 17:00 | External Medical Summary | Summary of Care ---
Author Name Unknown Organization [facility] Address [address] [facility] [place] [address] Phone [phone] Care Team Providers Care Commercial Maintenance Technician Name Role Phone Kojo Dunn MD Primary Care Provid er Reason for Visit * Reason Comments eRx-Medication Refill Encounter Details Date Type Department Care Team Description 12/02/2022 Refill [facility] [address] [place] [address] Kojo Dunn MD [address] [place] [address] Allergies Active Allergy Reactions Severity Noted Date Comments Adhesive Tape Itching 04/29/2020 Penicillins Rash 02/12/2008 Penicillin G 07/20/2018 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 documented as of this encounter (statuses as of 12/03/2022) Medications Medication Sig Dispensed Refills Start Date End Date Status nystatin (NYSTOP) 130223 UNIT/GM powder Apply topically to affected area 3 times a day. 60 g 1 10/16/19 20 Active Dexcom G6 Floriculture Professor Device Use as directed. To test blood sugars 4 times a day Dx E11.9 1 Each 0 09/14/19 21 Active Dexcom G6 Transmitter Use as directed. To test blood sugars 4 times a day. Change every 90 days. Dx E11.9 1 Each 3 09/14/19 21 Active OneTouch Verio In Vitro Strip (Glucose Blood) TESTING once daily 100 Strip 3 10/29/19 21 Active OxsensisTouch Delica Plus [id number] TESTING once daily 100 Each 3 10/29/19 [...] 11/30/2022 Fluticasone Propionate 50 MCG/ACT Nasal Suspension (Flonase)Indicatio [...] directed 60 Each 5 10/06/19 22 Active Potassium Chloride ER 10 MEQ Oral Tablet Extended ReleaseIndications :Hypokalemia Take by mouth 1 Tablet in the morning. With food.. 90 Tablet 3 12/22/19 22 Active Lidocaine-Prilocai ne 2.5-2.5 % External Cream (Emla)Indications: Encounter for antineoplastic chemotherapy Apply topically to affected area as needed for Other (when accessing port). APPLY TO SKIN OVER MEDIPORT & COVER 1HR PRIOR TO ACCESSING. 30 g 0 02/11/20 Active Trulicity 4.5 MG/0.5ML Subcutaneous Solution Pen-injector [...] TIMES DAILY. 400 Each 3 05/23/20 Active Linzess 290 MCG Oral Capsule (linaCLOtide) TAKE 1 CAPSULE BY MOUTH ONCE DAILY BEFORE BREAKFAST 90 Capsule 1 06/13/20 Active traMADol HCl 50 MG Oral Tablet (Ultram)Indication s:Abdominal pain, generalized Take by mouth 2 Tablets every 6 hours as needed for Pain, Severe (abdominal pain). 40 Tablet 0 06/13/20 Active Additional Information Patient not taking.Reported on 11/30/2022 Silver sulfADIAZINE 1 % External Cream (Silvadene)Indicat ions:Pressure injury of skin of sacral region, unspecified injury stage Apply topically to affected area daily . Apply to wound 85 g 11 07/06/20 Active Nadolol 40 MG Oral Tablet (Corgard)Indicatio ns:HTN, goal below 140/90 TAKE 1 TABLET BY MOUTH DAILY 90 Tablet 1 07/29/20 Active Atorvastatin Calcium 80 MG Oral Tablet [...] morning. 45 mL 3 10/13/19 23 Active Benzonatate 200 MG Oral CapsuleIndications :Bronchitis, complicated Take 1 Capsule by mouth 3 times a day as needed for Cough. 30 Capsule 1 10/18/19 23 Active Pantoprazole Sodium 20 MG Oral Tablet Delayed Release (Protonix)Indicati ons:NAFLD (nonalcoholic fatty liver disease),Other cirrhosis of liver (HCC) Take 2 Tablets by mouth in the morning and 2 Tablets before bedtime. 360 Tablet 1 10/18/19 23 Active oxyCODONE HCl 5 MG Oral Tablet (Oxy IR)Indications:Chr onic pain syndrome Take 1 Tablet by mouth every 6 hours as needed for Pain, Moderate or Pain, Severe. 30 Tablet 0 10/18/19 23 Active Additional Information Patient not taking.Reported [...] DAILY 30 Tablet 5 12/04/19 23 Active Aspirin 81 MG Oral Tablet Chewable CHEW AND SWALLOW 1 TABLET BY MOUTH ONCE DAILY 30 Tablet 8 03/12/20 22 023 Discontinued Hospital, Clinic, or Other [...] pain 01/24/2012 01/17/2017 Genetic Sleep Disorder Research Other*[id number] 05/13/2011 04/07/2016 Obstructive sleep apnea 01/18/2011 12/27/19 [...] (Prevnar) 05/02/2019 Pneumococcal Conjugate Vacci ne, 20-valent ([id number]) 10/21/2022 Pneumococcal Polysaccharide PPV23 (Pneumovax) 06/01/2010 Seasonal [...] encounter Miscellaneous Notes * Telephone Encounter - Linda Ag RPh - 12/03/2022 7:29 AM EDTSigned Prescriptions: Disp Refills Aspirin Low Dose 81 MG Oral Tablet Chewabl*30 Tab*5 Sig: CHEW AND SWALLOW 1 TABLET BY MOUTH DAILYAuthorizing Provider: KOJO DUNN User: LINDA AG documented in this encounter Plan of Treatment Upcoming Encounters Date Type Specialty Care Team Description 12/06/2022 Office Visit Gastroenterology Lyssa Stout CRNP [address] [facility] [place] [address] 12/07/2022 Office Visit Pulmonary LinnetteoJe MD [address] [place] [address] 12/08/2022 Office Visit Hematology Oncology Tono Sanchez MD [address] [facility], [place] [address] 12/09/2022 Imaging Radiology 12/14/2022 Hem/Onc Treatment Hematology Oncology 12/16/2022 Home Visit [facility] July Poe RN [address] [place] [address] 12/28/2022 Home Visit [facility] Aleyda Campos PA-C [address] [place] [address] 01/04/2023 Hem/Onc Treatment Hematology Oncology [place], Chair 11 Hem Onc [facility] 200 [facility], [place] [address] 01/04/2023 Office Visit Pharmacy Pharmacist2, [facility] 200 [facility], [place] [address] 01/25/2023 Hem/Onc Treatment Hematology Oncology [place], Chair 11 Hem Onc [facility] 200 [facility], [place] [address] 02/10/2023 Office Visit Sleep Disorders Love Francisco DO [address] [place] [address] 03/01/2023 PulmDiagnostic Pulmonary Function [place], Pft [address] [place] [address] Scheduled Procedures Name Priority Associated Diagnoses Date/Ti [...] this encounter Medical Devices Implanted Type Area Linux Kernel Developer Device Identifier Shelf Expiration Date Model / Serial / Lot Microtech Sure Clip Implanted:Qty: 2 on 06/03/2020 by Janis Hatch DO at OR [facility] Clip N/A: Colon 04/21/2022 [facility]-F-26-2 35-C-R / / [id number] documented as of this encounter Advance Directives Documents on File Type Date Recorded 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 No Code Status History Code Status Date Activated Date Inactivated Comments Full Code 12/27/2021 2:50 PM 12/27/2021 8:02 PM This order reflects the patients wishes and were consensually agreed upon. Question Answer Comments Discussion of Advance Directives occurred with: Not Discussed Does the patient have a Living Will? No Does the patient have Health Care Power of Sql Dba? No Full Code 03/31/2021 8:57 PM 04/03/2021 [...] Agents on File Name Relationship Healthcare Agent [facility] p Communication Syed Bustos Spouse Emergency Contact Care Teams Commercial Maintenance Technician Relationship Specialty Start Date End Date Kojo Dunn MD [address], [place] [id number] PCP - General Family Medicine 03/16/21 documented as of this encounter
--- OUTSIDE RECORDS SUMMARY | 2023-05-10 17:01 | External Medical Summary | Summary of Care ---
Author Name Unknown Organization [facility] Address [address] [facility] [place] [place] [address] Phone [phone] Care Team Providers Care Bottle Blower Name Role Phone Vanita Dunn MD Primary Care Provid er Reason for Visit * Reason Onset Date Comments [facility]: Maintenance 12/02/2022 Encounter Details Date Type Department Care Team Description 12/02/2022 Scheduled Telephone [facility], [facility] 132 [facility] [place] [address] Coordinator, [facility] 132 [facility] [place] [address] Allergies Active Allergy Reactions Severity Noted Date Comments Adhesive Tape Itching 04/29/2020 Penicillins Rash 02/12/2008 Penicillin G 07/20/2018 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 documented as of this encounter (statuses as of 12/02/2022) Medications Medication Sig Dispensed Refills Start Date End Date Status nystatin (NYSTOP) 475303 UNIT/GM powder Apply topically to affected area 3 times a day. 60 g 1 10/16/2019 Active Dexcom G6 Political Worker Device Use as directed. To test blood sugars 4 times a day Dx E11.9 1 Each 0 09/14/2020 Active Dexcom G6 Transmitter Use as directed. To test blood sugars 4 times a day. Change every 90 days. Dx E11.9 1 Each 3 09/14/2020 Active OneTouch Verio In Vitro Strip (Glucose Blood) TESTING once daily 100 Strip 3 10/29/2020 Active MakstrTouch Delica Plus Ptzlal90F TESTING once daily 100 Each 3 10/29/2020 [...] oxyCODONE HCl 5 MG Oral Tablet (Oxy IR)Indications:Shipping & Receiving Lead kai pain syndrome Take 1 Tablet by [...] current situation. 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 Denies fever. Aware to call for any new or worsening symptoms. Results forwarded to care team for further advice. Disposition: Routed to [facility] and/or [facility] Care Team for further advice Future Visits Scheduled: Future Appointments-next 60 days Date/Time Provider Specialty Dept Phone 12/06/2022 1:30 PM (Arrive by 1:15 PM) ZAK [facility] Gastroenterology [phone] 12/07/2022 3:20 PM (Arrive by 3:05 PM) Joe Anglin MD Pulmonary [phone] 12/08/2022 1:15 PM (Arrive by 1:00 PM) Tono Sanchez MD Hematology Oncology [phone] 12/09/2022 2:15 PM (Arrive by 2:00 PM) [facility] Radiology [phone] 12/14/2022 1:30 PM [facility] 12 HEM ONC [facility] Hematology Oncology [phone] 12/16/2022 2:30 PM July Poe RN [facility] [phone] 12/28/2022 10:00 AM [facility] [phone] 01/04/2023 1:30 PM Chair 11 Hem Onc [facility] Hematology Oncology [phone] 01/04/2023 3:40 PM [facility] Sp Pharmacist2 Pharmacy [phone] 01/25/2023 1:30 PM Chair 11 Hem Onc [facility] Hematology Oncology [phone] 02/10/2023 12:00 PM (Arrive by 11:45 AM) Love Francisco DO Sleep Disorders [phone] 03/01/2023 1:00 PM [facility] [place] Pulmonary Function [phone] Melissa Muhammad LPN documented in this encounter Plan of Treatment Upcoming Encounters Date Type Specialty Care Team Description 12/06/2022 Office Visit Gastroenterology Lyssa Stout CRNP [address] [place] [address] 12/07/2022 Office Visit Pulmonary LinnetteJoe MD [address] [place] [address] 12/08/2022 Office Visit Hematology Oncology Tono Sanchez MD [address] [place] [address] 12/09/2022 Imaging Radiology 12/14/2022 Hem/Onc Treatment Hematology Oncology 12/16/2022 Home Visit [facility] July Poe RN [address] [place] [address] 12/28/2022 Home Visit [facility] Aleyda Campos PA-C [address] [place] [address] 01/04/2023 Hem/Onc Treatment Hematology Oncology [place], Chair 11 Hem Onc [address] [place] [address] 01/04/2023 Office Visit Pharmacy Pharmacist2, [facility] [address] [place] [address] 01/25/2023 Hem/Onc Treatment Hematology Oncology [place], Chair 11 Hem Onc [address] [place] [address] 02/10/2023 Office Visit Sleep Disorders Love Francisco, [address] [place] [address] 03/01/2023 PulmDiagnostic Pulmonary Function [place], Pft [address] [place] [address] Scheduled Procedures Name Priority Associated Diagnoses Date/Ti [...] this encounter Medical Devices Implanted Type Area Bleacher Sulfite Pulp Device Identifier Shelf Expiration Date Model / Serial / Lot Microtech Sure Clip Implanted:Qty: 2 on 06/03/2020 by Janis Hatch DO at OR [facility] Clip N/A: Colon 04/21/2022 [facility]-F-26-2 35-C-R / / [id number] documented as of this encounter Advance Directives Documents on File Type Date Recorded Patient 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 No Code Status History Code Status Date Activated Date Inactivated Comments Full Code 12/27/2021 2:50 PM 12/27/2021 8:02 PM This order reflects the patients wishes and were consensually agreed upon. Question Answer Comments Discussion of Advance Directives occurred with: Not Discussed Does the patient have a Living Will? No Does the patient have Health Care Power of Casualty Claim Adjuster? No Full Code 03/31/2021 8:57 PM [...] Syed Bustos Spouse Emergency Contact Care Teams Bottle Blower Relationship Specialty Start Date End Date Vanita Dunn MD [address] [place] [address] PCP - General Family Medicine 03/16/21 documented as of this encounter
--- OUTSIDE RECORDS SUMMARY | 2023-05-10 17:01 | External Medical Summary | Summary of Care ---
Author Name Unknown Organization [facility] Address [address] [facility] [place] [address] Phone [phone] Care Team Providers Care Slp Teacher Name Role Phone Vanita Dunn MD Primary Care Provid er Reason for Visit * Reason Onset Date Comments [facility]: Maintenance 12/02/2022 Encounter Details Date Type Department Care Team Description 12/02/2022 Scheduled Telephone [facility], [facility] [address] [facility] [place] [address] Coordinator, [facility] 132 [facility] [place] [address] Allergies Active Allergy Reactions Severity Noted Date Comments Adhesive Tape Itching 04/29/2020 Penicillins Rash 02/12/2008 Penicillin G 07/20/2018 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 documented as of this encounter (statuses as of 12/02/2022) Medications Medication Sig Dispensed Refills Start Date End Date Status nystatin (NYSTOP) 131100 UNIT/GM powder Apply topically to affected area 3 times a day. 60 g 1 10/16/2019 Active Dexcom G6 Patient Account Representative Device Use as directed. To test blood sugars 4 times a day Dx E11.9 1 Each 0 09/14/2020 Active Dexcom G6 Transmitter Use as directed. To test blood sugars 4 times a day. Change every 90 days. Dx E11.9 1 Each 3 09/14/2020 Active OneTouch Verio In Vitro Strip (Glucose Blood) TESTING once daily 100 Strip 3 10/29/2020 Active RoundrateTouch Delica Plus [id number] TESTING once daily 100 Each 3 10/29/2020 [...] oxyCODONE HCl 5 MG Oral Tablet (Oxy IR)Indications:Aitchbone Breaker kai pain syndrome Take 1 Tablet by [...] pain 01/24/2012 01/17/2017 Genetic Sleep Disorder Research Other*[id number] 05/13/2011 04/07/2016 Obstructive sleep apnea 01/18/2011 12/27/19 [...] (Prevnar) 05/02/2019 Pneumococcal Conjugate Vacci ne, 20-valent ([id number]) 10/21/2022 Pneumococcal Polysaccharide PPV23 (Pneumovax) 06/01/2010 Seasonal [...] encounter Miscellaneous Notes * Telephone Encounter - Carlos Khoury DO - 12/02/2022 2:16 PM EDT Continue to monitor symptoms. If they continue improving, no treatment indicated. * Telephone Encounter - Melissa Muhammad LPN - 12/02/2022 1:40 PM EDT Images from the original note were not included. [facility] Telephonic Nurse Follow-Up Call [facility] Subprogram: Focused Care Management (3-9 months) Follow [...] and seems to be getting a little wire weaver cloth in color. Denies fever. Aware to call for any new or worsening symptoms. Results forwarded to care team for further advice. Disposition: Routed to [facility] and/or [facility] at Home Care Team for further advice Future Visits Scheduled: Future Appointments-next 60 days Date/Time Provider Specialty Dept Phone 12/06/2022 1:30 PM (Arrive by 1:15 PM) ZAK Bolton Gastroenterology [phone] 12/07/2022 3:20 PM (Arrive by 3:05 PM) Joe Anglin MD Pulmonary [phone] 12/08/2022 1:15 PM (Arrive by 1:00 PM) Tono Sanchez MD Hematology Oncology [phone] 12/09/2022 2:15 PM (Arrive by 2:00 PM) [address] Radiology [phone] 12/14/2022 1:30 PM CHAIR 12 HEM ONC [facility] Hematology Oncology [phone] 12/16/2022 2:30 PM July Poe RN [facility] [phone] 12/28/2022 10:00 AM Aleyda Campos PA-C [facility] [phone] 01/04/2023 1:30 PM Chair 11 Hem Onc [facility] Hematology Oncology [phone] 01/04/2023 3:40 PM [facility] Pharmacist2 Pharmacy [phone] 01/25/2023 1:30 PM Chair 11 Hem Onc [facility] Hematology Oncology [phone] 02/10/2023 12:00 PM (Arrive by 11:45 AM) Love Francisco DO Sleep Disorders [phone] 03/01/2023 1:00 PM [facility] [place] Pulmonary Function [phone] Melissa Muhammad LPN documented in this encounter Plan of Treatment Upcoming Encounters Date Type Specialty Care Team Description 12/06/2022 Office Visit Gastroenterology Lyssa Stout CRNP [address] [place] [address] 12/07/2022 Office Visit Pulmonary LinnetteJoe MD [address] [facility] [place] [address] 12/08/2022 Office Visit Hematology Oncology Tono Sanchez MD [address] [place] [address] 12/09/2022 Imaging Radiology 12/14/2022 Hem/Onc Treatment Hematology Oncology 12/16/2022 Home Visit [facility] July Poe RN [address] [place] [address] 12/28/2022 Home Visit [facility] Aleyda Campos PA-C [address] [place] [address] 01/04/2023 Hem/Onc Treatment Hematology Oncology [place], Chair 11 Hem Onc [address] [place] [address] 01/04/2023 Office Visit Pharmacy Pharmacist2, [facility] [address] [place] [address] 01/25/2023 Hem/Onc Treatment Hematology Oncology [place], Chair 11 Hem Onc [address] [place] [address] 02/10/2023 Office Visit Sleep Disorders Love Francisco, [address] [place] [address] 03/01/2023 PulmDiagnostic Pulmonary Function [place], Pft [address] [place] [address] Scheduled Procedures Name Priority Associated Diagnoses Date/Ti [...] this encounter Medical Devices Implanted Type Area Systems Test Engineer Device Identifier Shelf Expiration Date Model / Serial / Lot Microtech Sure Clip Implanted:Qty: 2 on 06/03/2020 by Hatch, Marten B, DO at OR [facility] Clip N/A: Colon 04/21/2022 [facility]-F-26-2 35-C-R / / [id number] documented as of this encounter Advance Directives Documents on File Type Date Recorded Patient Health Commissioner Expl anation Advance Directives and Living Will 04/29/2021 ADVANCE DIRECTIVE / LIVING WILL LIVING WILL AND HEALTH CARE POA Power of Car Worker Helper 04/29/2021 POWER OF A TTORNEY HEALTH [...] the patient have Health Care Power of Car Worker Helper? No Code Status History Code Status Date Activated Date Inactivated Comments Full Code 12/27/2021 2:50 PM 12/27/2021 8:02 PM This order reflects the patients wishes and were consensually agreed upon. Question Answer Comments Discussion of Advance Directives occurred with: Not Discussed Does the patient have a Living Will? No Does the patient have Health Care Power of Car Worker Helper? No Full Code 03/31/2021 8:57 PM [...] Syed Bustos Spouse Emergency Contact Care Teams Slp Teacher Relationship Specialty Start Date End Date Vanita Dunn MD [address] [place] [address] PCP - General Family Medicine 03/16/21 documented as of this encounter
--- OUTSIDE RECORDS SUMMARY | 2023-05-10 17:01 | External Medical Summary | Summary of Care ---
Author Name Unknown Organization [facility] Address [address] [place] [address] Phone [phone] Care Team Providers Care Rv Parts And Service Director Name Role Phone Vanita Dunn MD Primary Care Provid er Reason for Visit * Reason Onset Date Comments Information 12/02/2022 Encounter Details Date Type Department Care Team Description 12/02/2022 Telephone [facility], [place] [address] [place] [address] Services, Scheduling [address] [place] [address] Information Allergies Active Allergy Reactions Severity Noted Date Comments Adhesive Tape Itching 04/29/2020 Penicillins Rash 02/12/2008 Penicillin G 07/20/2018 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 documented as of this encounter (statuses as of 12/02/2022) Medications Medication Sig Dispensed Refills Start Date End Date Status nystatin (NYSTOP) 764836 UNIT/GM powder Apply topically to affected area 3 times a day. 60 g 1 10/16/2019 Active Dexcom G6 Windows Server Architect Device Use as directed. To test blood sugars 4 times a day Dx E11.9 1 Each 0 09/14/2020 Active Dexcom G6 Transmitter Use as directed. To test blood sugars 4 times a day. Change every 90 days. Dx E11.9 1 Each 3 09/14/2020 Active OneTouch Verio In Vitro Strip (Glucose Blood) TESTING once daily 100 Strip 3 10/29/2020 Active OneTouch Delica Plus [id number] TESTING once daily 100 Each 3 10/29/2020 [...] oxyCODONE HCl 5 MG Oral Tablet (Oxy IR)Indications:Mate First kai pain syndrome Take 1 Tablet by [...] not been using nebs. Lost top piece. MEILE provided replacement today Agreed to start using [...] pain 01/24/2012 01/17/2017 Genetic Sleep Disorder Research Other*[id number] 05/13/2011 04/07/2016 Obstructive sleep apnea 01/18/2011 12/27/19 [...] (Prevnar) 05/02/2019 Pneumococcal Conjugate Vacci ne, 20-valent ([id number]) 10/21/2022 Pneumococcal Polysaccharide PPV23 (Pneumovax) 06/01/2010 Seasonal [...] Miscellaneous Notes * Telephone Encounter - THAD Perales - 12/02/2022 9:31 AM EDT Incoming call from [employer], regarding Ken's call about Purewick Catheters. Rep stated in order to refill the supply we would need to reach out to supplier directly. That is [employer], . This would include a new supply order since patient does not have [employer] insurance. Rep also stated most insurance does not cover this item, so it may need to be paid for out of pocket. Made GRAPHIC TECHNICIAN aware. THAD Perales documented in this encounter Plan of Treatment Upcoming Encounters Date Type Specialty Care Team Description 12/02/2022 Scheduled Telephone [facility]k Pen Set Assembler, [facility] Scott Decker [address] [place] [address] 12/06/2022 Office Visit Gastroenterology Lyssa Stout CRNP [address] [place] [address] 12/08/2022 Office Visit [facility]ematology Oncology [facility] [address] 12/09/2022 Imaging Radiology 12/14/2022 Hem/Onc Treatment Hematology Oncology 12/16/2022 Home Visit [facility] July Poe, RN [address] [place] [address] 12/28/2022 Home Visit [facility] Aleyda Campos PA-C [address] [place] [address] 01/04/2023 Hem/Onc Treatment Hematology Oncology [place], Chair 11 Hem Onc Scenery [address] [place] [address] 01/04/2023 Office Visit Pharmacy Pharmacist2, [facility] [address] [place] [address] 01/25/2023 Hem/Onc Treatment Hematology Oncology [place], Chair 11 Hem Onc [address] [place] [address] 02/10/2023 Office Visit Sleep Disorders Love Francisco DO [address] [place] [address] 03/01/2023 PulmDiagnostic Pulmonary Function [place], [facility] [address] [place] [address] Scheduled Procedures Name Priority Associated Diagnoses Date/Ti [...] this encounter Medical Devices Implanted Type Area Supervisor Cigarette Making Department Device Identifier Shelf Expiration Date Model / Serial / Lot Microtech Sure Clip Implanted:Qty: 2 on 06/03/2020 by Janis Hatch, DO at OR [facility] Clip N/A: Colon 04/21/2022 [facility]-F-26-2 35-C-R / / [id number] documented as of this encounter Advance Directives Documents on File Type Date Recorded Patient Winter Intern Expl anation Advance Directives and Living Will 04/29/2021 ADVANCE DIRECTIVE / LIVING WILL LIVING WILL AND HEALTH CARE POA Power of Babysitter 04/29/2021 POWER OF A TTORNEY HEALTH CARE [...] the patient have Health Care Power of Babysitter? No Code Status History Code Status Date Activated Date Inactivated Comments Full Code 12/27/2021 2:50 PM 12/27/2021 8:02 PM This order reflects the patients wishes and were consensually agreed upon. Question Answer Comments Discussion of Advance Directives occurred with: Not Discussed Does the patient have a Living Will? No Does the patient have Health Care Power of Babysitter? No Full Code 03/31/2021 8:57 PM 04/03/2021 [...] Syed Bustos Spouse Emergency Contact Care Teams Rv Parts And Service Director Relationship Specialty Start Date End Date Vanita Dunn MD [address] [place] [phone] PCP - General Family Medicine 03/16/21 documented as of this encounter
--- OUTSIDE RECORDS SUMMARY | 2023-05-10 17:01 | External Medical Summary | Summary of Care ---
Author Name Unknown Organization [facility] Address [address] [facility] [place] [address] Phone [phone] Care Team Providers Care Job Development Specialist Name Role Phone Vanita Dunn MD Primary Care Provid er Reason for Visit * Reason Onset Date Comments [facility]: Maintenance 11/30/2022 Encounter Details Date Type Department Care Team Description 11/30/2022 Telephone [facility], [facility] [address] [employer] [address] [place] [address] July Poe, RN [address] [facility] [place] [address] [facility]: Maintenance Allergies Active Allergy Reactions Severity Noted Date Comments Adhesive Tape Itching 04/29/2020 Penicillins Rash 02/12/2008 Penicillin G 07/20/2018 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 documented as of this encounter (statuses as of 12/01/2022) Medications Medication Sig Dispensed Refills Start Date End Date Status nystatin (NYSTOP) 195848 UNIT/GM powder Apply topically to affected area 3 times a day. 60 g 1 10/16/2019 Active Dexcom G6 Engraver Rubber Device Use as directed. To test blood sugars 4 times a day Dx E11.9 1 Each 0 09/14/2020 Active Dexcom G6 Transmitter Use as directed. To test blood sugars 4 times a day. Change every 90 days. Dx E11.9 1 Each 3 09/14/2020 Active OneTouch Verio In Vitro Strip (Glucose Blood) TESTING once daily 100 Strip 3 10/29/2020 Active OneTouch Delica Plus [id number] TESTING once daily 100 Each 3 10/29/2020 [...] oxyCODONE HCl 5 MG Oral Tablet (Oxy IR)Indications:Photographic Technician kai pain syndrome Take 1 Tablet by [...] as of this encounter (statuses as of 12/01/2022) Active Problems Problem Noted Date Hypertensive heart [...] as of this encounter (statuses as of 12/01/2022) Resolved Problems Problem Noted Date Resolved Date [...] current situation. 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 if a keno terminal operator plan is made -continue lexapro [...] pain 01/24/2012 01/17/2017 Genetic Sleep Disorder Research Other*[id number] 05/13/2011 04/07/2016 Obstructive sleep apnea 01/18/2011 12/27/19 [...] as of this encounter (statuses as of 12/01/2022) Immunizations Name Administration Dates Next Due COVID-19 mRNA, LNP-s, No Pre serve, 2-Dose Series (Moderna) 01/05/2022,07/26/2021,12/21/2020,11/09 HEP A - Hepatitis A (Adult > 18 yrs) 09/24/2018, 03/26/2018 Hepatitis B, 20+ yrs 09/24/2018,04/23/2018,03/26 Pneumococcal Conjugate Vacc, 13 Valent (Prevnar) 05/02/2019 Pneumococcal Conjugate Vacci ne, 20-valent ([id number]) 10/21/2022 Pneumococcal Polysaccharide PPV23 (Pneumovax) 06/01/2010 Seasonal [...] * Telephone Encounter - THAD Coleman - 12/01/2022 2:01 PM EDT Per request, [facility] Purewick catheters? REF- [id number] and also a replacement canister, left [facility] # * Telephone Encounter - Marie Johnson LPN - 11/30/2022 1:51 PM EDT Scheduling can you assist with below * Telephone Encounter - July Poe RN - 11/30/2022 10:35 AM EDT Intake - [facility] Purewick catheters? REF- [id number] Could you also ask for a replacement canister? Thank you documented in this encounter Plan of Treatment Upcoming Encounters Date Type Specialty Care Team Description 12/02/2022 Scheduled Telephone [facility] Systems Software Manager, Brady Decker [address] [place] [address] 12/06/2022 Office Visit Gastroenterology Lyssa Stout CRNP [address] [place] [address] 12/08/2022 Office Visit [facility]ematology [facility]cology [facility] [address] 12/09/2022 Imaging Radiology 12/14/2022 Hem/Onc Treatment Hematology Oncology 12/16/2022 Home Visit [facility] July Poe RN [address] [place] [address] 12/28/2022 Home Visit [facility] Aleyda Campos PA-C [address] [place] [address] 01/04/2023 Hem/Onc Treatment Hematology Oncology [place], Chair 11 Hem Onc Scen[address] [facility] [address] 01/04/2023 Office Visit Pharmacy Pharmacist2, [facility] [address] 01/25/2023 Hem/Onc Treatment Hematology Oncology [place], Chair 11 Hem Onc [facility] [address] [place] [address] 02/10/2023 Office Visit Sleep Disorders Love Francisco DO [address] [place] [address] 03/01/2023 PulmDiagnostic Pulmonary Function [place], Pft [address] [place] [address] Scheduled Procedures Name Priority Associated Diagnoses Date/Ti [...] this encounter Medical Devices Implanted Type Area Historical Manuscripts Curator Device Identifier Shelf Expiration Date Model / Serial / Lot Microtech Sure Clip Implanted:Qty: 2 on 06/03/2020 by Janis Hatch DO at OR [facility] Clip N/A: Colon 04/21/2022 [facility]-F-26-2 35-C-R / / [id number] documented as of this encounter Advance Directives Documents on File Type Date Recorded Patient Clothing Cutter Expl anation Advance Directives and Living Will 04/29/2021 ADVANCE DIRECTIVE / LIVING WILL LIVING WILL AND HEALTH CARE POA Power of Research Program Internship 04/29/2021 POWER OF A TTORNEY HEALTH CARE [...] patient have Health Care Power of Research Program Internship? No Code Status History Code Status Date Activated Date Inactivated Comments Full Code 12/27/2021 2:50 PM 12/27/2021 8:02 PM This order reflects the patients wishes and were consensually agreed upon. Question Answer Comments Discussion of Advance Directives occurred with: Not Discussed Does the patient have a Living Will? No Does the patient have Health Care Power of Research Program Internship? No Full Code 03/31/2021 8:57 PM 04/03/2021 [...] Agents on File Name Relationship Healthcare Agent [facility] Communication Syed Bustos Spouse Emergency Contact Care Teams Job Development Specialist Relationship Specialty Start Date End Date Vanita Dunn MD [address] [place] [address] PCP - General Family Medicine 03/16/21 documented as of this encounter
--- OUTSIDE RECORDS SUMMARY | 2023-05-10 17:02 | External Medical Summary | Summary of Care ---
Author Name Unknown Organization [facility] Address [address] [facility] [place] [address] Phone [phone] Care Team Providers Care Mounting Machine Operator Name Role Phone Vanita Dunn MD Primary Care Provid er Reason for Visit * Reason Onset Date Comments [facility]: Maintenance 12/01/2022 Encounter Details Date Type Department Care Team Description 12/01/2022 Scheduled Telephone [facility], [facility] 132 [facility] [place] [address] Coordinator, [facility] 132 [facility] [place] [address] Allergies Active Allergy Reactions Severity Noted Date Comments Adhesive Tape Itching 04/29/2020 Penicillins Rash 02/12/2008 Penicillin G 07/20/2018 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 documented as of this encounter (statuses as of 12/01/2022) Medications Medication Sig Dispensed Refills Start Date End Date Status nystatin (NYSTOP) 452524 UNIT/GM powder Apply topically to affected area 3 times a day. 60 g 1 10/16/2019 Active Dexcom G6 Wire Frame Lampshade Maker Device Use as directed. To test blood sugars 4 times a day Dx E11.9 1 Each 0 09/14/2020 Active Dexcom G6 Transmitter Use as directed. To test blood sugars 4 times a day. Change every 90 days. 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 kai pain syndrome Take 1 Tablet by [...] pain 01/24/2012 01/17/2017 Genetic Sleep Disorder Research Other*[id number] 05/13/2011 04/07/2016 Obstructive sleep apnea 01/18/2011 12/27/19 [...] (Prevnar) 05/02/2019 Pneumococcal Conjugate Vacci ne, 20-valent ([id number]) 10/21/2022 Pneumococcal Polysaccharide PPV23 (Pneumovax) 06/01/2010 Seasonal [...] Telephone Encounter - Lakeshia Flores RN - 12/01/2022 8:28 AM EDT [facility] Telephonic Nurse Follow-Up Call [facility] Subprogram: Focused Care Management (3-9 months) Follow Up Call Type: Routine follow up call / Status Check Acute issue requiring follow-up call: Complicated UTI Objective: 11/30/2022 11/23/2022 11/21/2022 11/17/2022 11/03/2022 VITALS ACROSS ENCOUNTERS BP 120/72 128/87 100/60 102/62 114/68 Pulse 76 70 63 62 62 Multiple values from one day are sorted in reverse-chronological order Lab Results Component Value Date BLOOD, URINE - [facility] Large (A) 11/30/2022 PROTEIN, URINE - [facility] 30 (A) 11/30/2022 ESTERASE, URINE - [facility] Moderate (A) 11/30/2022 WBC AUTO - [facility] 3.80 (L) 11/23/2022 WBC, URINE - [facility] 50+ (A) 11/30/2022 NITRITE, URINE - [facility] Negative 11/30/2022 QUANT URINE CULTURE GROWTH No significant growth 11/03/2022 Lab Results Component Value Date WBC AUTO [...] in symptoms Current Concerns: Spoke with patient and spouse, notes urine is still dark, notes +burning at times Spouse notes that the last caregiver that was in the home left with a rash and the spouse said the agency told her it was a bed bug rash and will not let anymore caregivers in the home. Spouse instructed to call [facility] waiver at [phone] to follow up Disposition: Follow up call scheduled for tomorrow with [facility] Companion Future Visits Scheduled: Future Appointments-next 60 days Date/Time Provider Specialty Dept Phone 12/01/2022 1:15 PM (Arrive by 1:00 PM) [address] Radiology [phone] 12/01/2022 2:00 PM [facility] [phone] 12/02/2022 1:00 PM [facility]ion [facility] [phone] 12/06/2022 1:30 PM (Arrive by 1:15 PM) ZAK Bolton Gastroenterology [phone] 12/08/2022 1:15 PM (Arrive by 1:00 PM) Tono Sanchez MD Hematology Oncology [phone] 12/14/2022 1:30 PM [facility] 12 HEM ONC [facility] Hematology Oncology [phone] 12/16/2022 2:30 PM July Poe RN [facility] [phone] 12/28/2022 10:00 AM Aleyda Campos PA-C [facility] [phone] 01/04/2023 1:30 PM Chair 11 Hem Onc [facility] Hematology Oncology [phone] 01/04/2023 3:40 PM [facility] Pharmacist2 Pharmacy [phone] 01/25/2023 1:30 PM Chair 11 Hem Onc [facility] Hematology Oncology [phone] 02/10/2023 12:00 PM (Arrive by 11:45 AM) Love Francisco, Sleep Disorders [phone] 03/01/2023 1:00 PM Pft [place] Pulmonary Function [phone] Lakeshia Flores RN documented in this encounter Plan of Treatment Upcoming Encounters Date Type Specialty Care Team Description 12/01/2022 Imaging Radiology 12/02/2022 Scheduled Telephone [facility] [place] Worker, Wysteph Chavez [facility] [address] [place] [address] 12/06/2022 Office Visit Gastroenterology Lyssa Stout CRNP [address] [place] [address] 12/08/2022 Office Visit Hematology Oncology Tono Sanchez MD [address] [place] [address], [place] [address] 12/14/2022 Hem/Onc Treatment Hematology Oncology 12/16/2022 Home Visit [facility] July Poe RN [address] [place] [address] 12/28/2022 Home Visit [facility] Aleyda Campos PA-C [address] [place] [address] 01/04/2023 Hem/Onc Treatment Hematology Oncology [place], Chair 11 Hem Onc [address] [place] [address] 01/04/2023 Office Visit Pharmacy Pharmacist2, [facility] Sp [address] [place] [address] 01/25/2023 Hem/Onc Treatment Hematology Oncology [place], Chair 11 Hem Onc [address] [place] [address] 02/10/2023 Office Visit Sleep Disorders Love Francisco, [address] [place] [address] 03/01/2023 PulmDiagnostic Pulmonary Function [place], Pft [address] [place] [address] Scheduled Procedures Name Priority Associated Diagnoses Date/Ti [...] this encounter Medical Devices Implanted Type Area Veterinary Medicine Scientist Device Identifier Shelf Expiration Date Model / Serial / Lot Microtech Sure Clip Implanted:Qty: 2 on 06/03/2020 by Janis Hatch DO at OR [facility] Clip N/A: Colon 04/21/2022 [facility]-F-26-2 35-C-R / / [id number] documented as of this encounter Advance Directives Documents on File Type Date Recorded Patient Patient Registration Specialist Expl anation Advance Directives and Living Will 04/29/2021 ADVANCE DIRECTIVE / LIVING WILL LIVING WILL AND HEALTH CARE POA Power of Title Checker 04/29/2021 POWER OF A [facility] [...] the patient have Health Care Power of Title Checker? No Code Status History Code Status Date Activated Date Inactivated Comments Full Code 12/27/2021 2:50 PM 12/27/2021 8:02 PM This order reflects the patients wishes and were consensually agreed upon. Question Answer Comments Discussion of Advance Directives occurred with: Not Discussed Does the patient have a Living Will? No Does the patient have Health Care Power of Title Checker? No Full Code 03/31/2021 8:57 PM 04/03/2021 [...] File Name Relationship [facility] Syed Bustos Spouse Emergency Contact Care Teams Mounting Machine Operator Relationship Specialty Start Date End Date Vanita Dunn MD [address] [place] [address] PCP - General Family Medicine 03/16/21 documented as of this encounter
--- OUTSIDE RECORDS SUMMARY | 2023-05-10 17:02 | External Medical Summary | Summary of Care ---
Author Name Unknown Organization [facility] Address [address] [facility] [place] [address] Phone [phone] Care Team Providers Care Roof Bolting Coal Miner Name Role Phone Vanita Dunn MD Primary Care Provid er Reason for Visit * Reason Onset Date Comments [facility]: Maintenance 11/30/2022 Encounter Details Date Type Department Care Team Description 11/30/2022 Telephone [facility], [facility] [address] [place] [address] July Poe, RN [address] [place] [address] [facility]: Maintenance Allergies Active Allergy Reactions Severity Noted Date Comments Adhesive Tape Itching 04/29/2020 Penicillins Rash 02/12/2008 Penicillin G 07/20/2018 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 documented as of this encounter (statuses as of 11/30/2022) Medications Medication Sig Dispensed Refills Start Date End Date Status nystatin (NYSTOP) 863540 UNIT/GM powder Apply topically to affected area 3 times a day. 60 g 1 10/16/2019 Active Dexcom G6 Toe Closing Machine Tender Device Use as directed. To test blood sugars 4 times a day Dx E11.9 1 Each 0 09/14/2020 Active Dexcom G6 Transmitter Use as directed. To test blood sugars 4 times a day. Change every 90 days. 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 if a intermediate card tender plan is made -continue lexapro Generalized [...] pain 01/24/2012 01/17/2017 Genetic Sleep Disorder Research Other*[id number] 05/13/2011 04/07/2016 Obstructive sleep apnea 01/18/2011 12/27/19 [...] as of this encounter (statuses as of 11/30/2022) Immunizations Name Administration Dates Next Due COVID-19 mRNA, LNP-s, No Pre serve, 2-Dose Series (Moderna) 01/05/2022,07/26/2021,12/21/2020,11/09 HEP A - Hepatitis A (Adult > 18 yrs) 09/24/2018, 03/26/2018 Hepatitis B, 20+ yrs 09/24/2018,04/23/2018,03/26 Pneumococcal Conjugate Vacc, 13 Valent (Prevnar) 05/02/2019 Pneumococcal Conjugate Vacci ne, 20-valent ([id number]) 10/21/2022 Pneumococcal Polysaccharide PPV23 (Pneumovax) 06/01/2010 Seasonal [...] Encounter - July Poe RN - 11/30/2022 11:08 AM EDT Pt has appt scheduled with Aleyda Campos on 12/08 at 11:30 am but she has to be at an appointment with Dr. Sanchez at 1pm. Can Aleyda's visit be changed please? Thank you documented in this encounter Plan of Treatment Upcoming Encounters Date Type Specialty Care Team Description 12/01/2022 Imaging Radiology 12/01/2022 Scheduled Telephone [facility] Jukebox Route Driver, [facility] [address] [place] [address] 12/02/2022 Scheduled Telephone [facility]ukebox [facility] Driver, [facility] [address] [place] [address] 12/06/2022 Office Visit Gastroenterology Lyssa Stout CRNP [address] [place] [address] 12/08/2022 Office Visit Hematology Oncology Tono Sanchez MD [address] [facility] [place] [address] 12/14/2022 Hem/Onc Treatment Hematology Oncology 12/16/2022 Home Visit [facility] July Poe RN [address] [place] [address] 12/28/2022 Home Visit [facility] Aleyda Campos PA-C [address] [place] [address] 01/04/2023 Hem/Onc Treatment Hematology Oncology [place], Chair 11 Hem Onc [address] [facility] [address] 01/04/2023 Office Visit Pharmacy Pharmacist2, [facility] 200 [place] [address] 01/25/2023 Hem/Onc Treatment Hematology Oncology [place], Chair 11 Hem Onc Scenery [address] [facility] [place] [address] 02/10/2023 Office Visit Sleep Disorders Love Francisco, 132 [place] [address] 03/01/2023 PulmDiagnostic Pulmonary Function [place], Pft [address] [place] [address] Scheduled Procedures Name Priority Associated Diagnoses Date/Ti [...] this encounter Medical Devices Implanted Type Area Acid Tank Cleaner Device Identifier Shelf Expiration Date Model / Serial / Lot Microtech Sure Clip Implanted:Qty: 2 on 06/03/2020 by Janis Hatch, DO at OR [facility] Clip N/A: Colon 04/21/2022 [facility]-F-26-2 35-C-R / / [id number] documented as of this encounter Advance Directives Documents on File Type Date Recorded Patient Rent And Miscellaneous Remittance Clerk Expl anation Advance Directives and Living Will 04/29/2021 ADVANCE DIRECTIVE / LIVING WILL LIVING WILL AND HEALTH CARE POA Power of Manager Medical Writing 04/29/2021 POWER OF A [facility] [...] patient have Health Care Power of Manager Medical Writing? No Code Status History Code Status Date Activated Date Inactivated Comments Full Code 12/27/2021 2:50 PM 12/27/2021 8:02 PM This order reflects the patients wishes and were consensually agreed upon. Question Answer Comments Discussion of Advance Directives occurred with: Not Discussed Does the patient have a Living Will? No Does the patient have Health Care Power of Manager Medical Writing? No Full Code 03/31/2021 8:57 PM 04/03/2021 [...] Agents on File Name Relationship Healthcare Agent [facility] Communication Syed Bustos Spouse Emergency Contact Care Teams Roof Bolting Coal Miner Relationship Specialty Start Date End Date Vanita Dunn MD [address] [place] [address] PCP - General Family Medicine 03/16/21 documented as of this encounter
--- OUTSIDE RECORDS SUMMARY | 2023-05-10 17:03 | External Medical Summary | Summary of Care ---
Author Name Unknown Organization [facility] Address [address] [place] [address] Phone [phone] Care Team Providers Care Supervisor Bonding Name Role Phone Vanita Dunn MD Primary Care Provid er Reason for Visit * Reason Onset Date Comments Appointment 11/30/2022 Encounter Details Date Type Department Care Team Description 11/30/2022 Telephone [facility], [facility] [address] [facility] [place] [address] Services, Scheduling [address] [place] [address] Appointment (/) Allergies Active Allergy Reactions Severity Noted Date Comments Adhesive Tape Itching 04/29/2020 Penicillins Rash 02/12/2008 Penicillin G 07/20/2018 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 documented as of this encounter (statuses as of 11/30/2022) Medications Medication Sig Dispensed Refills Start Date End Date Status nystatin (NYSTOP) 311349 UNIT/GM powder Apply topically to affected area 3 times a day. 60 g 1 10/16/2019 Active Dexcom G6 Power Supply Engineer Device Use as directed. To test blood sugars 4 times a day Dx E11.9 1 Each 0 09/14/2020 Active Dexcom G6 Transmitter Use as directed. To test blood sugars 4 times a day. Change every 90 days. Dx E11.9 1 Each 3 09/14/2020 Active OneTouch Verio In Vitro Strip (Glucose Blood) TESTING once daily 100 Strip 3 10/29/2020 Active OneTouch Delica Plus [id number] TESTING once daily 100 Each 3 10/29/2020 [...] oxyCODONE HCl 5 MG Oral Tablet (Oxy IR)Indications:Low Raw Sugar Cutter kai pain syndrome Take 1 Tablet by [...] pain 01/24/2012 01/17/2017 Genetic Sleep Disorder Research Other*[id number] 05/13/2011 04/07/2016 Obstructive sleep apnea 01/18/2011 12/27/19 [...] (Prevnar) 05/02/2019 Pneumococcal Conjugate Vacci ne, 20-valent ([id number]) 10/21/2022 Pneumococcal Polysaccharide PPV23 (Pneumovax) 06/01/2010 Seasonal [...] * Telephone Encounter - THAD Melissa - 11/30/2022 2:10 PM EDT Called pt back to reschedule appt.... Called lmom to confirm if 12/28 at 10:00am is a good date and time. documented in this encounter Plan of Treatment Upcoming Encounters Date Type Specialty Care Team Description 12/01/2022 Imaging Radiology 12/01/2022 Scheduled Telephone [facility] Insurance Sales Professional, [facility] [address] [place] [address] 12/02/2022 Scheduled Telephone [facility] Insurance Sales Professional, [facility] [address] [place] [address] 12/06/2022 Office Visit Gastroenterology Lyssa Stout CRNP [address] [place] [address] 12/08/2022 Office Visit Hematology Oncology Tono Sanchez MD [address] [place] [address], [place] [address] 12/14/2022 Hem/Onc Treatment Hematology Oncology 12/16/2022 Home Visit [facility] July Poe, RN [address] [place] [address] 12/28/2022 Home Visit [facility] Aleyda Campos PA-C [address] [place] [address] 01/04/2023 Hem/Onc Treatment Hematology Oncology [place], Chair 11 Hem Onc Scen[address] [place] [address] 01/04/2023 Office Visit Pharmacy Pharmacist2, [facility] Sp [address] [place] [address] 01/25/2023 Hem/Onc Treatment Hematology Oncology [place], Chair 11 Hem Onc [address] [place] [address] 02/10/2023 Office Visit Sleep Disorders Love Francisco, [address] [place] [address] 03/01/2023 PulmDiagnostic Pulmonary Function [place], Pft [address] [place] [address] Scheduled Procedures Name Priority Associated Diagnoses Date/Ti [...] encounter Medical Devices Implanted Type Area Manager Banking Device Identifier Shelf Expiration Date Model / Serial / Lot Microtech Sure Clip Implanted:Qty: 2 on 06/03/2020 by Janis Hatch, DO at OR [facility] Clip N/A: Colon 04/21/2022 [facility]-F-26-2 35-C-R / / [id number] documented as of this encounter Advance Directives Documents on File Type Date Recorded Patient Cutter Finisher Expl anation Advance Directives and Living Will 04/29/2021 ADVANCE DIRECTIVE / LIVING WILL LIVING WILL AND HEALTH CARE POA Power of Pipe Fitter Marine 04/29/2021 POWER OF A [facility] [...] the patient have Health Care Power of Pipe Fitter Marine? No Code Status History Code Status Date Activated Date Inactivated Comments Full Code 12/27/2021 2:50 PM 12/27/2021 8:02 PM This order reflects the patients wishes and were consensually agreed upon. Question Answer Comments Discussion of Advance Directives occurred with: Not Discussed Does the patient have a Living Will? No Does the patient have Health Care Power of Pipe Fitter Marine? No Full Code 03/31/2021 8:57 PM 04/03/2021 [...] Bustos Spouse Emergency Contact Care Teams Supervisor Bonding Relationship Specialty Start Date End Date Vanita Dunn MD [address] [place] [address] PCP - General Family Medicine 03/16/21 documented as of this encounter
--- OUTSIDE RECORDS SUMMARY | 2023-05-10 17:03 | External Medical Summary | Summary of Care ---
Author Name Unknown Organization [facility] Address [address] [facility] [place] [address] Phone [phone] Care Team Providers Care Gas Station Service Attendant Name Role Phone Vanita Dunn MD Primary Care Provid er Reason for Visit * Reason Onset Date Comments [facility]: Maintenance 11/30/2022 Encounter Details Date Type Department Care Team Description 11/30/2022 Telephone [facility], [facility] [address] [place] [address] July Poe, RN [address] [facility] [place] [address] [facility]: Maintenance Allergies Active Allergy Reactions Severity Noted Date Comments Adhesive Tape Itching 04/29/2020 Penicillins Rash 02/12/2008 Penicillin G 07/20/2018 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 documented as of this encounter (statuses as of 11/30/2022) Medications Medication Sig Dispensed Refills Start Date End Date Status nystatin (NYSTOP) 170440 UNIT/GM powder Apply topically to affected area 3 times a day. 60 g 1 10/16/2019 Active Dexcom G6 Correctional Substance Abuse Counselor Device Use as directed. To test blood sugars 4 times a day Dx E11.9 1 Each 0 09/14/2020 Active Dexcom G6 Transmitter Use as directed. To test blood sugars 4 times a day. Change every 90 days. 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 if a tank terminal gauger plan is made -continue lexapro [...] pain 01/24/2012 01/17/2017 Genetic Sleep Disorder Research Other*[id number] 05/13/2011 04/07/2016 Obstructive sleep apnea 01/18/2011 12/27/19 [...] (Prevnar) 05/02/2019 Pneumococcal Conjugate Vacci ne, 20-valent ([id number]) 10/21/2022 Pneumococcal Polysaccharide PPV23 (Pneumovax) 06/01/2010 Seasonal [...] encounter Miscellaneous Notes * Telephone Encounter - Marie Johnson LPN - 11/30/2022 1:51 PM EDT Scheduling can you assist with below * Telephone Encounter - July Poe RN - 11/30/2022 10:35 AM EDT Intake - can you please reach out to [facility] and see if they can send more Purewick catheters? REF- [id number] Could you also ask for a replacement canister? Thank you documented in this encounter Plan of Treatment Upcoming Encounters Date Type Specialty Care Team Description 12/01/2022 Imaging Radiology 12/01/2022 Scheduled Telephone [facility] Undertaker Helper, [place] [address] 12/02/2022 Scheduled Telephone [facility] Undertaker Helper, [facility] [place] [address] 12/06/2022 Office Visit Gastroenterology Lyssa Stout CRNP [address] [address] 12/08/2022 Office Visit Hematology Oncology Tono Sanchez MD [address] [facility] [address] 12/14/2022 Hem/Onc Treatment Hematology Oncology 12/16/2022 Home Visit [facility] July Poe RN [address] [place] [address] 12/28/2022 Home Visit [facility] Aleyda Campos PA-C [address] [address] 01/04/2023 Hem/Onc Treatment Hematology Oncology [place], Chair 11 Hem Onc [facility] [address] 01/04/2023 Office Visit Pharmacy Pharmacist2, [facility] Sp 200 [facility], [place] [address] 01/25/2023 Hem/Onc Treatment Hematology Oncology [place], Chair 11 Hem Onc [address] 200 [place] [address] 02/10/2023 Office Visit Sleep Disorders Love Francisco DO [address] [place] [address] 03/01/2023 PulmDiagnostic Pulmonary Function [place], Pft [address] [place] [address] Scheduled Procedures Name Priority Associated Diagnoses Date/Ti [...] this encounter Medical Devices Implanted Type Area Accounting Manager Device Identifier Shelf Expiration Date Model / Serial / Lot Microtech Sure Clip Implanted:Qty: 2 on 06/03/2020 by Janis Hatch DO at OR [facility] Clip N/A: Colon 04/21/2022 [facility]-F-26-2 35-C-R / / [id number] documented as of this encounter Advance Directives Documents on File Type Date Recorded Patient Microsoft Architect Expl anation Advance Directives and Living Will 04/29/2021 ADVANCE DIRECTIVE / LIVING WILL LIVING WILL AND HEALTH CARE POA Power of Dining Room Helper 04/29/2021 POWER OF A [facility] [...] the patient have Health Care Power of Dining Room Helper? No Code Status History Code Status Date Activated Date Inactivated Comments Full Code 12/27/2021 2:50 PM 12/27/2021 8:02 PM This order reflects the patients wishes and were consensually agreed upon. Question Answer Comments Discussion of Advance Directives occurred with: Not Discussed Does the patient have a Living Will? No Does the patient have Health Care Power of Dining Room Helper? No Full Code 03/31/2021 8:57 PM [...] Syed Bustos Spouse Emergency Contact Care Teams Gas Station Service Attendant Relationship Specialty Start Date End Date Vanita Dunn MD [address] [place] [address] PCP - General Family Medicine 03/16/21 documented as of this encounter
--- OUTSIDE RECORDS SUMMARY | 2023-05-10 17:03 | External Medical Summary | Summary of Care ---
Author Name Unknown Organization [facility] Address [address] [facility] [place] [address] Phone [phone] Care Team Providers Care Retort Setter Name Role Phone Vanita Dunn MD Primary Care Provid er Reason for Visit * Reason Onset Date Comments [facility]: Maintenance 11/30/2022 Encounter Details Date Type Department Care Team Description 11/30/2022 Telephone [facility] [address] [place] [facility] [place] [place] [address] Carlos Khoury, [address] [facility] [place] [id number] [facility]: Maintenance Allergies Active Allergy Reactions Severity Noted Date Comments Adhesive Tape Itching 04/29/2020 Penicillins Rash 02/12/2008 Penicillin G 07/20/2018 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 documented as of this encounter (statuses as of 11/30/2022) Medications Medication Sig Dispensed Refills Start Date End Date Status nystatin (NYSTOP) 167475 UNIT/GM powder Apply topically to affected area 3 times a day. 60 g 1 10/16/2019 Active Dexcom G6 Hand Woodworking Sander Device Use as directed. To test blood sugars 4 times a day Dx E11.9 1 Each 0 09/14/2020 Active Dexcom G6 Transmitter Use as directed. To test blood sugars 4 times a day. Change every 90 days. Dx E11.9 1 Each 3 09/14/2020 Active Design ClinicalsTouch Verio In Vitro Strip (Glucose Blood) TESTING once daily 100 Strip 3 10/29/2020 Active Design ClinicalsTouch Delica Plus [id number] TESTING once daily 100 Each 3 10/29/2020 [...] oxyCODONE HCl 5 MG Oral Tablet (Oxy IR)Indications:Camera Storage Clerk kai pain syndrome Take 1 Tablet by [...] current situation. 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 -continue lexapro Generalized weakness [...] pain 01/24/2012 01/17/2017 Genetic Sleep Disorder Research Other*[id number] 05/13/2011 04/07/2016 Obstructive sleep apnea 01/18/2011 12/27/19 [...] (Prevnar) 05/02/2019 Pneumococcal Conjugate Vacci ne, 20-valent (Tcdayvs29) 10/21/2022 Pneumococcal Polysaccharide PPV23 (Pneumovax) 06/01/2010 Seasonal [...] encounter Miscellaneous Notes * Telephone Encounter - Liz Grullon LPN - 11/30/2022 2:17 PM EDT calls scheduled * Telephone Encounter - Carlos Khoury DO - 11/30/2022 11:06 AM EDT [facility] Command Phone Encounter [facility] Subprogram: Focused Care Management (3-9 months) [facility] Episode Start Date: Noted: 09/16/2021 Assessment and Recommendations: Dark urine (Primary) - URINALYSIS, REFLEX TO CULTURE (NOT FOR NEUTROPENIC PATIENTS); Future; Expected date: 11/30/2022 Addt'l Comments: TT from RNCM Patient and reporting dark, concentrated urine. Recently admitted for UTI and they feltthis is how it started with the previous episode. Patient uses pure wick catheter system. Agreeable to straight cath urine. Will obtain straight cath urine and treat if indicated. To Do: Please see below for follow up items to be completed and correspondence: Telephonic DEVAN Grove please work on the following: place on schedule for 24 / 48 hour phone calls Carlos Khoury DO Remote Medical Command - [facility] 11/30/2022 Scheduled appointments in the next 60 days: Future Appointments-next 60 days Date/Time Provider Specialty Dept Phone 11/30/2022 3:30 PM [facility] Pharmacist2 Pharmacy [phone] 12/01/2022 1:15 PM (Arrive by 1:00 PM) [email or web address] [facility] Radiology [phone] 12/01/2022 2:00 PM [facility] [phone] 12/02/2022 1:00 PM [facility] [phone] 12/06/2022 1:30 PM (Arrive by 1:15 PM) ZAK Bolton Gastroenterology [phone] 12/08/2022 11:30 AM Aleyda Campos PA-C [facility] [phone] 12/08/2022 1:15 PM (Arrive by 1:00 PM) Tono Sanchez MD Hematology Oncology [phone] 12/14/2022 1:30 PM CHAIR 12 HEM ONC [place] Hematology Oncology [phone] 01/04/2023 1:30 PM Chair 11 Hem Onc [place] Hematology Oncology [phone] 01/25/2023 1:30 PM Chair 11 Hem Onc [place] Hematology Oncology [phone] 02/10/2023 12:00 PM (Arrive by 11:45 AM) Love Francisco DO Sleep Disorders [phone] 03/01/2023 1:00 PM Pft [place] Pulmonary Function [phone] documented in this encounter Plan of Treatment Upcoming Encounters Date Type Specialty Care Team Description 12/01/2022 Imaging Radiology 12/01/2022 Scheduled Telephone [facility] Scientist, [facility] Scott Decker [address] [address] 12/02/2022 Scheduled Telephone [facility] Scientist, [place] [address] [place] [address] 12/06/2022 Office Visit Gastroenterology Lyssa Stout CRNP [address] [place] [address] 12/08/2022 Office Visit Hematology Oncology [facility] [address] [facility] [address] 12/14/2022 Hem/Onc Treatment Hematology Oncology 12/16/2022 Home Visit [facility] July Poe RN [address] [place] [address] 12/28/2022 Home Visit [facility] Aleyda Campos PA-C [address] [place] [address] 01/04/2023 Hem/Onc Treatment Hematology Oncology [place], Chair 11 Hem Onc [facility] [address] [facility] [address] 01/04/2023 Office Visit Pharmacy Pharmacist, [facility] [address] [facility] [address] 01/25/2023 Hem/Onc Treatment Hematology Oncology [place], Chair 11 Hem Onc [place] [address] [facility] [address] 02/10/2023 Office Visit Sleep Disorders Love Francisco, [address] [place] [address] 03/01/2023 PulmDiagnostic Pulmonary Function [place], Pft [address] [place] [address] Pending Results Name Type Priority Associated Diagnoses Date /Time URINALYSIS, REFLEX TO CULTURE (NOT FOR NEUTROPENIC PATIENTS) Lab Routine Dark urine 11/30/2022 11:45 AM EDT Scheduled Orders Name Type Priority Associated Diagnoses Orde r Schedule URINALYSIS, REFLEX TO CULTURE (NOT FOR NEUTROPENIC PATIENTS) Lab Routine Dark urine Expected: 11/30/2022, Expires: 12/01/2023 Scheduled Procedures Name Priority Associated Diagnoses Date/Ti mt ESOPHAGOGASTRODUODENOSCOPY ( EGD), FLEXIBLE, TRANSORAL, DIAGNOSTIC Recall [...] this encounter Medical Devices Implanted Type Area Web Services Architect Device Identifier Shelf Expiration Date Model / Serial / Lot Microtech Sure Clip Implanted:Qty: 2 on 06/03/2020 by Janis Hatch DO at OR [facility] Clip N/A: Colon 04/21/2022 [facility]-F-26-2 35-C-R / / [id number] documented as of this encounter Visit Diagnoses Diagnosis Dark urine- Primary Other nonspecific finding on examination of urine documented in this encounter Advance Directives Documents on File Type Date Recorded Patient Plate Gauger Expl anation Advance Directives and Living Will 04/29/2021 ADVANCE DIRECTIVE / LIVING WILL LIVING WILL AND HEALTH CARE POA Power of Csm Consultant 04/29/2021 POWER OF A [facility] [...] the patient have Health Care Power of Csm Consultant? No Code Status History Code Status Date Activated Date Inactivated Comments Full Code 12/27/2021 2:50 PM 12/27/2021 8:02 PM This order reflects the patients wishes and were consensually agreed upon. Question Answer Comments Discussion of Advance Directives occurred with: Not Discussed Does the patient have a Living Will? No Does the patient have Health Care Power of Csm Consultant? No Full Code 03/31/2021 8:57 PM 04/03/2021 [...] Syed Bustos Spouse Emergency Contact Care Teams Retort Setter Relationship Specialty Start Date End Date Vanita Dunn MD [address] [place] [address] PCP - General Family Medicine 03/16/21 documented as of this encounter
--- OUTSIDE RECORDS SUMMARY | 2023-05-10 17:04 | External Medical Summary | Summary of Care ---
Author Name Unknown Organization [facility] Address [address] [place] [address] Phone [phone] Care Team Providers Care Infant Teacher Name Role Phone Vanita Dunn MD Primary Care Provid er Reason for Visit * Reason Onset Date Comments Appointment 11/30/2022 Encounter Details Date Type Department Care Team Description 11/30/2022 Telephone [facility], [facility] [address] [facility] [place] [address] Services, Scheduling [address] [place] [address] Appointment (//) Allergies Active Allergy Reactions Severity Noted Date Comments Adhesive Tape Itching 04/29/2020 Penicillins Rash 02/12/2008 Penicillin G 07/20/2018 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 documented as of this encounter (statuses as of 11/30/2022) Medications Medication Sig Dispensed Refills Start Date End Date Status nystatin (NYSTOP) 375793 UNIT/GM powder Apply topically to affected area 3 times a day. 60 g 1 10/16/2019 Active Dexcom G6 Bilingual Inside Sales Representative Device Use as directed. To test blood sugars 4 times a day Dx E11.9 1 Each 0 09/14/2020 Active Dexcom G6 Transmitter Use as directed. To test blood sugars 4 times a day. Change every 90 days. 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 Called s/w pt she advised she is on the other line and to call back later.. Will reschedule appt on 12/28 at 10:00am will try to call back later on . documented in this encounter Plan of Treatment Upcoming Encounters Date Type Specialty Care Team Description 12/01/2022 Imaging Radiology 12/01/2022 Scheduled Telephone [facility] Skills Instructor, [facility] [address] [place] [address] 12/02/2022 Scheduled Telephone [facility] Skills Instructor, [facility] [address] [place] [address] 12/06/2022 Office Visit Gastroenterology Lyssa Stout CRNP [address] [place] [address] 12/08/2022 Office Visit Hematology Oncology [facility]ono Sanchez [facility] [address] [facility] [address] 12/14/2022 Hem/Onc Treatment Hematology Oncology 12/16/2022 Home Visit [facility] July Poe, RN [address] [place] [address] 12/28/2022 Home Visit [facility] Aleyda Campos PA-C [address] [place] [address] 01/04/2023 Hem/Onc Treatment Hematology Oncology [place], Chair 11 Hem Onc [facility] [address] 01/04/2023 Office Visit Pharmacy Pharmacist2, [facility] Sp [address] [place] [address] 01/25/2023 Hem/Onc Treatment [facility] Oncology [place], Chair 11 Hem Onc [place] [address] [facility] [place] [address] 02/10/2023 Office Visit Sleep Disorders Love Francisco DO [address] [place] [address] 03/01/2023 PulmDiagnostic Pulmonary Function [place], Pft [address] [place] [address] Scheduled Procedures Name Priority Associated Diagnoses Date/Ti [...] this encounter Medical Devices Implanted Type Area Wall Taper Helper Device Identifier Shelf Expiration Date Model / Serial / Lot Microtech Sure Clip Implanted:Qty: 2 on 06/03/2020 by Janis Hatch, DO at OR [facility] Clip N/A: Colon 04/21/2022 [facility]-F-26-2 35-C-R / / [id number] documented as of this encounter Advance Directives Documents on File Type Date Recorded Patient Publishing Agent Expl anation Advance Directives and Living Will 04/29/2021 ADVANCE DIRECTIVE / LIVING WILL LIVING WILL AND HEALTH CARE POA Power of Tie Tamper 04/29/2021 POWER OF A [facility] [...] the patient have Health Care Power of Tie Tamper? No Code Status History Code Status Date Activated Date Inactivated Comments Full Code 12/27/2021 2:50 PM 12/27/2021 8:02 PM This order reflects the patients wishes and were consensually agreed upon. Question Answer Comments Discussion of Advance Directives occurred with: Not Discussed Does the patient have a Living Will? No Does the patient have Health Care Power of Tie Tamper? No Full Code 03/31/2021 8:57 PM 04/03/2021 [...] Syed Bustos Spouse Emergency Contact Care Teams Infant Teacher Relationship Specialty Start Date End Date Vanita Dunn MD [address] [place] [id number] PCP - General Family Medicine 03/16/21 documented as of this encounter
--- OUTSIDE RECORDS SUMMARY | 2023-05-10 17:04 | External Medical Summary | Summary of Care ---
Author Name Unknown Organization [facility] Address [address] [facility] [place] [address] Phone [phone] Care Team Providers Care Marketing Planner Name Role Phone Vanita Dunn MD Primary Care Provid er Reason for Visit * Reason Comments [facility]: Maintenance Encounter Details Date Type Department Care Team Description 11/30/2022 Home Visit [facility], [facility] [address] [place] [address] July Poe, RN [address] [facility] [place] [address] Allergies Active Allergy Reactions Severity Noted Date Comments Adhesive Tape Itching 04/29/2020 Penicillins Rash 02/12/2008 Penicillin G 07/20/2018 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 documented as of this encounter (statuses as of 11/30/2022) Medications Medication Sig Dispensed Refills Start Date End Date Status nystatin (NYSTOP) 908955 UNIT/GM powder Apply topically to affected area 3 times a day. 60 g 1 10/16/2019 Active Dexcom G6 Buffet 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 Device Use as directed. To test blood sugars 4 times a day Dx E11.9 1 Each 0 09/14/2020 Active Dexcom G6 Transmitter Use as directed. To test blood sugars 4 times a day. Change every 90 days. 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 kai pain syndrome Take 1 Tablet by [...] pain 01/24/2012 01/17/2017 Genetic Sleep Disorder Research Other*[id number] 05/13/2011 04/07/2016 Obstructive sleep apnea 01/18/2011 12/27/19 [...] (Prevnar) 05/02/2019 Pneumococcal Conjugate Vacci ne, 20-valent (Gqubcev89) 10/21/2022 Pneumococcal Polysaccharide PPV23 (Pneumovax) 06/01/2010 Seasonal [...] Sign Reading Time Taken Comments Blood Pressure 120/72 11/30/2022 10:17 AM EDT Pulse 76 11/30/2022 10:17 AM EDT Temperature 35.8 C (96.5 F) 11/30/2022 10:17 AM E DT Respiratory Rate 18 11/30/2022 10:17 AM EDT Oxygen Saturation 96% 11/30/2022 10:17 AM EDT Inhaled Oxygen Concentration - - [...] Progress Notes * July Poe RN - 11/30/2022 9:29 AM EDT [facility] Mercerizing Machine Operator Visit Date: 11/30/2022 Time: 10:29 AM Name: Shaina Bustos : 1955 Current Concerns: Pt seen for return RNCM visit Blood sugars have been mostly in the 100's up to 300- wears dexcom Has appt with [facility] today Meds reviewed - called [facility] pharmacy in [place] and confirmed what meds are in pill packs Has bottles for all other meds (list added to specialty comments Has a new cg but did not show up past two days - has not heard from the agency if she will be coming back Urine in [place] system is very dark kevin in color - reports it started yesterday Pt denies dysuria or pelvic pain TT sent to [facility] Communication Note Name: Shaina Bustos Situation: Dark, kevin colored urine, started yesterday. has been trying to encourage fluids. Background: 67 y.o female with cerebral palsy, COPD, CHF, DM, Last hospitalization was for UTI and treated with Bactrim - had f/u urine after home and abx was completed, 3 weeks ago Assessment: Pt uses pure wick system and urine in canister if very dark/kevin colored. Pt denies urinary symptoms - denies dysuria, pelvic pain, urgency/frequency No fever/chills Recommendation: Obtained UA via Straight cath Physical Exam: BP 120/72 | Pulse 76 | Temp 35.8 C (96.5 F) | Resp 18 | SpO2 96% Pain 0 Physical Exam Constitutional: General: She [...] Eyes: Negative. Respiratory: Positive for cough (chronic, white mucus) and shortness of breath (at baseline). Cardiovascular: Positive for leg swelling. Gastrointestinal: Negative. Genitourinary: Urine is dark, kevin colored Musculoskeletal: Positive for gait problem (non-ambulatory). Psychiatric/Behavioral: Negative. Medication Reconciliation: (See medication list) Does patient take medications as ordered: Yes Patient Well Being: PHQ2/9: No questionnaires available. No change in living situation No falls [facility] Completed this Visit: No. Routine visit and No falls since last visit Advanced Care Planning: No documentation, ACP on file. Patient's Goals of Care: 1. Remain in home 2. Get a realtime captioner cg 3. Get out more Reinforcement/Education: DIABETES: [...] a day 5 servings fruit/vegetable per day Reviewed HF symptom monitoring: -Weigh self daily in am, post-void and record -Do not add salt to food, avoid foods high in sodium -Limit fluids to 2 liters per day -Report the following: ->2 lb weight gain in one day or 5 lbs in a week to PCP -increased edema in feet, abdomen or hands -increased SOB and cough, especially if at night -increased fatigue or vertigo COPD: Pt instructed to: -Call with increased [...] Frequent repositioning Low Na , CCD diet Cg 5 days a week for 8-9 hrs each day Svetlana lift for transfers F/U with heme/onc Be sure to take lactulose to haveat least2 bowel movements per day May take Miralax daily if no bm within 24 hrs UA taken to [facility] lab Home Interventions Provided: Labs/Specimen Collection Performed UA with reflex to culture Home Intervention: Other; Eval, straight cath for urine Consulted PCP/Specialist Reinforced current Plan of Care, including self-management and medication regimen Patient's 'Red Flags': 1. Increased cough with yellow/green sputum 2. Change in MS, confusion 3. No bm in 24 hrs Patient Needs to Remember: Call [facility] at with any new or worsening health concerns or problems, red flag symptoms. Referrals Needed: Other none Follow Up: Is there cellular connectivity/connectivity in the home? Yes Does the patient have internet in the home? Yes Patient encouraged to call the intake phone number for all urgent but not emergent issues. Is the patient new to [facility] within the last 30 days? No, Assess appropriateness for upcoming telehealth visits. Cancel telehealth visits & schedule home visit with care state farm agent team member(s)as indicated. Provider is in agreement with Plan of Care: Yes Scheduled to follow up with patient in 24 hrs and 48 hrs July Poe RN 11/30/2022 10:29 AM documented in this encounter Plan of Treatment Upcoming Encounters Date Type Specialty Care Team Description 11/30/2022 Laboratory Laboratory [place] [id number] [place] [address] Dark urine 11/30/2022 Office Visit Pharmacy Pharmacist2, [facility] [address] [place] [address] 12/01/2022 Imaging Radiology 12/01/2022 Scheduled Telephone [facility] [place], [facility] [address] [place] [address] 12/02/2022 Scheduled Telephone [facility] [place], [facility] [address] [place] [address] 12/06/2022 Office Visit Gastroenterology Lyssa Stout CRNP [address] [place] [address] 12/08/2022 Home Visit [facility] Aleyda Campos PA-C [address] [place] [address] 12/08/2022 Office Visit Hematology Oncology Tono Sanchez MD 200 [place] [address] 12/14/2022 Hem/Onc Treatment Hematology Oncology 12/16/2022 Home Visit [facility] July Poe RN [address] [place] [address] 01/04/2023 Hem/Onc Treatment Hematology Oncology [place], Chair 11 Hem Onc [address] [place] [address] 01/25/2023 Hem/Onc Treatment Hematology Oncology [place], Chair 11 Hem Onc [address] [place] [address] 02/10/2023 Office Visit Sleep Disorders Love Francisco DO [address] [place] [address] 03/01/2023 PulmDiagnostic Pulmonary Function [place], Pft [address] [place] [address] Scheduled Procedures Name Priority Associated Diagnoses Date/Ti [...] this encounter Medical Devices Implanted Type Area Top Installer Device Identifier Shelf Expiration Date Model / Serial / Lot Microtech Sure Clip Implanted:Qty: 2 on 06/03/2020 by Janis Hatch DO at OR [facility] Clip N/A: Colon 04/21/2022 [facility]-F-26-2 35-C-R / / [id number] documented as of this encounter Advance Directives Documents on File Type Date Recorded 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 No Code Status History Code Status Date Activated Date Inactivated Comments Full Code 12/27/2021 2:50 PM 12/27/2021 8:02 PM This order reflects the patients wishes and were consensually agreed upon. Question Answer Comments Discussion of Advance Directives occurred with: Not Discussed Does the patient have a Living Will? No Does the patient have Health Care Power of Parts Puller? No Full Code 03/31/2021 8:57 PM 04/03/2021 [...] File Name Relationship Healthcare Agent [facility] Communication Syed Bustos Spouse Emergency Contact Care Teams Marketing Planner Relationship Specialty Start Date End Date Vanita Dunn MD [address] [place] [address] PCP - General Family Medicine 03/16/21 documented as of this encounter
--- OUTSIDE RECORDS SUMMARY | 2023-05-10 17:04 | External Medical Summary | Summary of Care ---
Author Name Unknown Organization [facility] Address [address] [facility] [place] [address] Phone [phone] Care Team Providers Care Force Adjustment Supervisor Name Role Phone Vanita Dunn MD Primary Care Provid er Reason for Visit * Reason Comments Outpatient Testing Encounter Details Date Type Department Care Team Description 11/30/2022 Laboratory Laboratory, [place] [address] [place] [address] [place] [address] [place] [address] Dark urine Allergies Active Allergy Reactions Severity Noted Date Comments Adhesive Tape Itching 04/29/2020 Penicillins Rash 02/12/2008 Penicillin G 07/20/2018 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 documented as of this encounter (statuses as of 11/30/2022) Medications Medication Sig Dispensed Refills Start Date End Date Status nystatin (NYSTOP) 221740 UNIT/GM powder Apply topically to affected area 3 times a day. 60 g 1 10/16/2019 Active Dexcom G6 Drafter Patent Device Use as directed. To test blood sugars 4 times a day Dx E11.9 1 Each 0 09/14/2020 Active Dexcom G6 Transmitter Use as directed. To test blood sugars 4 times a day. Change every 90 days. Dx E11.9 1 Each 3 09/14/2020 Active OneTouch Verio In Vitro Strip (Glucose Blood) TESTING once daily 100 Strip 3 10/29/2020 Active OneTouch Delica Plus [id number] TESTING once daily 100 Each 3 10/29/2020 [...] oxyCODONE HCl 5 MG Oral Tablet (Oxy IR)Indications:Oakes Machine Operator kai pain syndrome Take 1 Tablet by [...] pain 01/24/2012 01/17/2017 Genetic Sleep Disorder Research Other*[id number] 05/13/2011 04/07/2016 Obstructive sleep apnea 01/18/2011 12/27/19 [...] (Prevnar) 05/02/2019 Pneumococcal Conjugate Vacci ne, 20-valent ([id number]) 10/21/2022 Pneumococcal Polysaccharide PPV23 (Pneumovax) 06/01/2010 Seasonal [...] Date Type Specialty Care Team Description 11/30/2022 Office Visit Pharmacy Pharmacist2, [facility] [address] [facility] [address] 12/01/2022 Imaging Radiology 12/01/2022 Scheduled Telephone [facility] Operator, Brady Decker [address] [place] [address] 12/02/2022 Scheduled Telephone [facility] Operator, Brady Decker [address] [place] [address] 12/06/2022 Office Visit Gastroenterology Lyssa Stout CRNP [address] [place] [address] 12/08/2022 [facility] Aleyda Campos PA-C [address] [place] [address] 12/08/2022 Office Visit Hematology Oncology Tono Sanchez MD 200 [place] [address] 12/14/2022 Hem/Onc Treatment Hematology Oncology 12/16/2022 [facility] Visit [facility] July Poe, RN [address] [place] [address] 01/04/2023 Hem/Onc Treatment Hematology Oncology [place], Chair 11 Hem Onc [facility] [address] [facility] [place] [address] 01/25/2023 Hem/Onc Treatment Hematology Oncology [place], Chair 11 Hem Onc [facility] 200 [facility] [place] [address] 02/10/2023 Office Visit Sleep Disorders Love Francisco DO [address] [place] [address] 03/01/2023 PulmDiagnostic Pulmonary Function [place], Pft [address] [place] [address] Pending Results Name Type Priority Associated Diagnoses Date /Time URINALYSIS, REFLEX TO CULTURE (NOT FOR NEUTROPENIC PATIENTS) Lab Routine Dark urine 11/30/2022 11:45 AM EDT URINALYSIS, REFLEX TO CULTURE (CUP ONLY) Lab Routine Dark urine 11/30/2022 11:45 AM EDT URINALYSIS, REFLEX TO CULTURE Lab Routine Dark urine 11/30/2022 11:45 AM EDT Scheduled Procedures Name Priority Associated Diagnoses [...] this encounter Medical Devices Implanted Type Area Group Home Counselor Device Identifier Shelf Expiration Date Model / Serial / Lot Microtech Sure Clip Implanted:Qty: 2 on 06/03/2020 by Janis Hatch DO at OR [facility] Clip N/A: Colon 04/21/2022 [facility]-F-26-2 35-C-R / / [id number] documented as of this encounter Visit Diagnoses Diagnosis Dark urine Other nonspecific finding on examination of urine documented in this encounter Advance Directives Documents on File Type Date Recorded Patient General Assignment Reporter Expl anation Advance Directives and Living Will 04/29/2021 ADVANCE DIRECTIVE / LIVING WILL LIVING WILL AND HEALTH CARE POA Power of Energy Manager 04/29/2021 POWER OF A [facility] [...] the patient have Health Care Power of Energy Manager? No Code Status History Code Status Date Activated Date Inactivated Comments Full Code 12/27/2021 2:50 PM 12/27/2021 8:02 PM This order reflects the patients wishes and were consensually agreed upon. Question Answer Comments Discussion of Advance Directives occurred with: Not Discussed Does the patient have a Living Will? No Does the patient have Health Care Power of Energy Manager? No Full Code 03/31/2021 8:57 PM [...] Syed Bustos Spouse Emergency Contact Care Teams Force Adjustment Supervisor Relationship Specialty Start Date End Date Vanita Dunn MD [address], [place] [phone] PCP - General Family Medicine 03/16/21 documented as of this encounter
--- OUTSIDE RECORDS SUMMARY | 2023-05-10 17:05 | External Medical Summary | Summary of Care ---
Author Name Unknown Organization [facility] Address [address] [facility] [place] [address] Phone [phone] Care Team Providers Care Hr Director Name Role Phone Vanita Dunn MD Primary Care Provid er Reason for Visit * Reason Comments Dosage Adjustment Via Phone (anticoag Cl inic) Encounter Details Date Type Department Care Team Description 11/28/2022 Pharmacy Pharmacy, [facility] [address] [place] [address] Pharmacist2, [facility] [address] [facility] [place] [address] Type 2 diabetes mellitus with hemoglobin A1c goal of less than 7.0% (FORM[facility]LY [facility])* Allergies Active Allergy Reactions Severity Noted Date Comments Adhesive Tape Itching 04/29/2020 Penicillins Rash 02/12/2008 Penicillin G 07/20/2018 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 documented as of this encounter (statuses as of 11/28/2022) Medications Medication Sig Dispensed Refills Start Date End Date Status nystatin (NYSTOP) 941637 UNIT/GM powder Apply topically to affected area 3 times a day. 60 g 1 10/16/2019 Active Dexcom G6 Real Estate Specialist Device Use as directed. To test blood sugars 4 times a day Dx E11.9 1 Each 0 09/14/2020 Active Dexcom G6 Transmitter Use as directed. To test blood sugars 4 times a day. Change every 90 days. Dx E11.9 1 Each 3 09/14/2020 Active OneTouch Verio In Vitro Strip (Glucose Blood) TESTING once daily 100 Strip 3 10/29/2020 Active OneTouch Delica Plus [id number] TESTING once daily 100 Each 3 10/29/2020 [...] (abdominal pain). 40 Tablet 0 06/13/2022 Active Silver sulfADIAZINE 1 % External [...] for Cough. 30 Capsule 1 10/18/2022 Active Additional Information Patient not taking.Reported on 11/21/2022 Pantoprazole Sodium 20 MG Oral Tablet Delayed Release (Protonix)Indicatio ns:NAFLD (nonalcoholic fatty liver disease),Other cirrhosis of liver (HCC) Take 2 Tablets by mouth in the morning and 2 Tablets before bedtime. 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 30 Tablet 0 10/18/2022 Active Lactulose 10 GM/15ML Oral Solution [...] as of this encounter (statuses as of 11/28/2022) Active Problems Problem Noted Date Hypertensive heart [...] as of this encounter (statuses as of 11/28/2022) Resolved Problems Problem Noted Date Resolved Date [...] situation. 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 if a intermediate school teacher plan is made -continue lexapro Generalized [...] pain 01/24/2012 01/17/2017 Genetic Sleep Disorder Research Other*[id number] 05/13/2011 04/07/2016 Obstructive sleep apnea 01/18/2011 12/27/19 [...] as of this encounter (statuses as of 11/28/2022) Immunizations Name Administration Dates Next Due COVID-19 mRNA, LNP-s, No Pre serve, 2-Dose Series (Moderna) 01/05/2022,07/26/2021,12/21/2020,11/09 HEP A - Hepatitis A (Adult > 18 yrs) 09/24/2018, 03/26/2018 Hepatitis B, 20+ yrs 09/24/2018,04/23/2018,03/26 Pneumococcal Conjugate Vacc, 13 Valent (Prevnar) 05/02/2019 Pneumococcal Conjugate Vacci ne, 20-valent ([id number]) 10/21/2022 Pneumococcal Polysaccharide PPV23 (Pneumovax) 06/01/2010 Seasonal [...] as of this encounter Progress Notes * DEVIKA Downing - 11/28/2022 9:23 AM EDT Patient Phone Numbers Spoke with patient to schedule [facility] appointment for diabetes management. Appointment scheduled as noted below. 11/30/2022 Thank you, Meng Kern Chronograph Operator [facility] 11/28/2022, 9:23 AM documented in this encounter Plan of Treatment Upcoming Encounters Date Type Specialty Care Team Description 11/30/2022 [facility] Visit [facility] July Poe RN [address] [place] [address] 11/30/2022 Office Visit Pharmacy Pharmacist2, [facility] [address] [facility] [place] [address] 12/01/2022 Imaging Radiology 12/06/2022 Office Visit Gastroenterology Lyssa Stout CRNP [address] [place] [address] 12/08/2022 [facility] Aleyda Campos PA-C [address] [place] [address] 12/08/2022 Office Visit Hematology Oncology Tono Sanchez MD [facility] [place] [address] 12/14/2022 Hem/Onc Treatment Hematology Oncology 01/04/2023 Hem/Onc Treatment Hematology Oncology [place], Chair [facility] [place] [address] 01/25/2023 Hem/Onc Treatment Hematology Oncology [place], Chair 11 [facility] [address] 02/10/2023 Office Visit Sleep Disorders Love Francisco DO [address] [place] [address] 03/01/2023 PulmDiagnostic Pulmonary Function [place], Pft [address] [place] [address] Scheduled Procedures Name Priority Associated Diagnoses Date/Ti [...] encounter Medical Devices Implanted Type Area Research Epidemiologist Device Identifier Shelf Expiration Date Model / Serial / Lot Microtech Sure Clip Implanted:Qty: 2 on 06/03/2020 by Janis Hatch DO at OR [facility] Clip N/A: Colon 04/21/2022 [facility]-F-26-2 35-C-R / / [id number] documented as of this encounter Visit Diagnoses Diagnosis Type 2 diabetes mellitus with hemoglobin A1c goal of less than 7.0% (HCC)- Primary documented in this encounter Advance Directives Documents on File Type Date Recorded Patient Vac Press Operator Expl anation Advance Directives and Living Will 04/29/2021 ADVANCE DIRECTIVE / LIVING WILL LIVING WILL AND HEALTH CARE POA Power of Trimmer Helper 04/29/2021 POWER OF A [facility]NEY HEALTH [...] the patient have Health Care Power of Trimmer Helper? No Code Status History Code Status Date Activated Date Inactivated Comments Full Code 12/27/2021 2:50 PM 12/27/2021 8:02 PM This order reflects the patients wishes and were consensually agreed upon. Question Answer Comments Discussion of Advance Directives occurred with: Not Discussed Does the patient have a Living Will? No Does the patient have Health Care Power of Trimmer Helper? No Full Code 03/31/2021 8:57 PM [...] Syed Bustos Spouse Emergency Contact Care Teams Hr Director Relationship Specialty Start Date End Date Vanita Dunn MD [address] [facility] [place] [phone] PCP - General Family Medicine 03/16/21 documented as of this encounter
--- OUTSIDE RECORDS SUMMARY | 2023-05-10 17:05 | External Medical Summary ---
Author Name Unknown Address Unknown Organization [id number]:[facility] [place] - [address] [facility] [address] Laboratory Report Ordering Provider Test Date Status ODALYS SOTELO 11/30/2022 11:45:12 Final Observation Date Value Abnormality Reference (Units ) Status Bacteria identified in Unspecified specimen by Culture 11/30/2022 11:45:12 [id number]^YEAST Abnormal Final Performing Location [facility] - [address] [facility] [address]
--- OUTSIDE RECORDS SUMMARY | 2023-05-10 17:05 | External Medical Summary ---
Author Name Unknown Address Unknown Organization [id number]:[facility] - [address] [facility] [place] [address] Laboratory Report Ordering Provider Test Date Status ODALYS SOTELO 11/30/2022 11:45:12 Final Observation Date Value Abnormality Reference (Units ) Status Color of Urine by Auto 11/30/2022 11:45:12 Yellow Colorless, Light Yellow, Yellow, Dark Yellow Final Clarity, Urine 11/30/2022 11:45:12 Clear Clear Final Glucose [Mass/volume] in Urine by Automated test strip 11/30/2022 11:45:12 Negative Negative (mg/dL) Final Bilirubin.total [Presence] in Urine by Automated test strip 11/30/2022 11:45:12 Negative Negative Final Ketones [Mass/volume] in Urine by Automated test strip 11/30/2022 11:45:12 Negative Negative (mg/dL) Final Specific gravity, Urine 11/30/2022 11:45:12 1.032 Above high normal 1.003-1.030 Final Hemoglobin [Presence] in Urine by Automated test strip 11/30/2022 11:45:12 Large Abnormal Negative Final pH, Urine 11/30/2022 11:45:12 6.5 5.0-7.5 (Units) Final Protein [Mass/volume] in Urine by Automated test strip 11/30/2022 11:45:12 30 Abnormal Negative (mg/dL) Final Urobilinogen [Mass/volume] in Urine by Automated test strip 11/30/2022 11:45:12 4.0 Abnormal Normal (mg/dL) Final Nitrite [Presence] in Urine by Automated test strip 11/30/2022 11:45:12 Negative Negative Final Leukocyte esterase [Presence] in Urine by Automated test strip 11/30/2022 11:45:12 Moderate Abnormal Negative Final RBC, Urine 11/30/2022 11:45:12 50+ Abnormal 0-2 (/HPF) Final WBC, Urine 11/30/2022 11:45:12 50+ Abnormal 0-2 (/HPF) Final Bacteria [#/area] in Urine sediment by Microscopy high power field 11/30/2022 11:45:12 51-100 Abnormal 0-25 (/HPF) Final Hyaline casts, Urine 11/30/2022 11:45:12 1-4 Abnormal None (/LPF) Final CULTURE, URINE - [facility] 11/30/2022 11:45:12 Final Performing Location [facility] - [facility] [address] [facility] [address]
--- OUTSIDE RECORDS SUMMARY | 2023-05-10 17:06 | External Medical Summary ---
Author Name Unknown Address Unknown Organization K01:[facility] - [address] [place] [address] Laboratory Report Ordering Provider Test Date Status EVETTE CORBETTEL 11/23/2022 14:12:02 Final Observation Date Value Abnormality Reference (Units ) Status Ferritin 11/23/2022 14:12:02 63 13-150 (ng /mL) Final Performing Location LAB[facility]ATORY [facility] - [address] [place] [address]
--- OUTSIDE RECORDS SUMMARY | 2023-05-10 17:06 | External Medical Summary | Summary of Care ---
Author Name Unknown Organization [facility] Address [address] [facility] [place] [address] Phone [phone] Care Team Providers Care Channel Cementer Name Role Phone Kojo Dunn MD Primary Care Provid er Reason for Visit * Reason Comments eRx-Medication Refill Encounter Details Date Type Department Care Team Description 11/21/2022 Refill [facility] [address] [place] [address] Alexandra Caceres [address] [place] [address] Allergies Active Allergy Reactions Severity Noted Date Comments Adhesive Tape Itching 04/29/2020 Penicillins Rash 02/12/2008 Penicillin G 07/20/2018 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 documented as of this encounter (statuses as of 11/23/2022) Medications Medication Sig Dispensed Refills Start Date End Date Status nystatin (NYSTOP) 088047 UNIT/GM powder Apply topically to affected area 3 times a day. 60 g 1 10/16/19 20 Active Dexcom G6 Android Ios Developer Device Use as directed. To test blood [...] 3 10/29/19 21 Active OneTouch Delica Plus [id number] TESTING once daily 100 Each 3 10/29/19 [...] weekly 6 mL 5 02/23/20 22 Active Aspirin 81 MG Oral Tablet Chewable CHEW AND SWALLOW 1 TABLET BY MOUTH ONCE DAILY 30 Tablet 8 03/12/20 22 Active Spironolactone 25 MG Oral Tablet [...] DAILY. 400 Each 3 05/23/20 22 Active Linzess 290 MCG Oral Capsule (linaCLOtide) TAKE 1 CAPSULE BY MOUTH ONCE DAILY BEFORE BREAKFAST 90 Capsule 1 06/13/20 22 Active traMADol HCl 50 MG Oral Tablet (Ultram)Indication s:Abdominal pain, generalized Take by mouth 2 Tablets every 6 hours as needed for Pain, Severe (abdominal pain). 40 Tablet 0 06/13/20 22 Active Silver sulfADIAZINE 1 % External Cream (Silvadene)Indicat ions:Pressure injury of skin of sacral region, unspecified injury stage Apply topically to affected area daily . Apply to wound 85 g 11 07/06/20 22 Active Nadolol 40 MG Oral [...] Cough. 30 Capsule 1 10/18/19 23 Active Additional Information Patient not [...] Severe. 30 Tablet 0 10/18/19 23 Active Lactulose 10 GM/15ML Oral [...] Wheezing. 120 mL 1 11/22/19 23 Active Fluticasone-Salmet jayme 250-50 MCG/ACT Inhalation Aerosol Powder Breath Activated Inhale 1 Puff by mouth in the morning and 1 Puff before bedtime. 0 023 Discontinued Hospital, Clinic, or Other Facility [...] as of this encounter (statuses as of 11/23/2022) Active Problems Problem Noted Date Hypertensive heart [...] as of this encounter (statuses as of 11/23/2022) Resolved Problems Problem Noted Date Resolved Date [...] current situation. 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 if a buttermaker continuous churn plan is made -continue lexapro Generalized weakness [...] pain 01/24/2012 01/17/2017 Genetic Sleep Disorder Research Other*[id number] 05/13/2011 04/07/2016 Obstructive sleep apnea 01/18/2011 12/27/19 [...] as of this encounter (statuses as of 11/23/2022) Immunizations Name Administration Dates Next Due COVID-19 mRNA, LNP-s, No Pre serve, 2-Dose Series (Moderna) 01/05/2022,07/26/2021,12/21/2020,11/09 HEP A - Hepatitis A (Adult > 18 yrs) 09/24/2018, 03/26/2018 Hepatitis B, 20+ yrs 09/24/2018,04/23/2018,03/26 Pneumococcal Conjugate Vacc, 13 Valent (Prevnar) 05/02/2019 Pneumococcal Conjugate Vacci ne, 20-valent ([id number]) 10/21/2022 Pneumococcal Polysaccharide PPV23 (Pneumovax) 06/01/2010 Seasonal [...] Telephone Encounter - Kojo Dunn MD - 11/23/2022 12:35 PM EDT Signed Prescriptions: Disp Refills Fluticasone-Salmeterol 250-50 MCG/ACT Inha*60 Each0 Sig: INHALE 1 PUFF BY MOUTH 2 TIMES DAILY. Authorizing Provider: KOJO DUNN * Telephone Encounter - Duncan, E-Rx Ss Inbound - 11/23/2022 9:31 AM EDT Pending Prescriptions: Disp Refills Fluticasone-Salmeterol 250-50 MCG/ACT Inha* 0 Sig: INHALE 1 PUFF BY MOUTH 2 TIMES DAILY. * Telephone Encounter - Josh Hayes [facility] - 11/22/2022 4:21 PM EDT Pending Prescriptions: Disp Refills Fluticasone-Salmeterol 250-50 MCG/ACT Inha* 0 Sig: INHALE 1 PUFF BY MOUTH 2 TIMES DAILY. * Telephone Encounter - Josh Hayes [facility] - 11/22/2022 4:20 PM EDT Pharmacists cannot authorize refills for meds listed as "historical" in chart. Please approve if appropriate. Pending Prescriptions: Disp Refills Fluticasone-Salmeterol 250-50 MCG/ACT Inha* 0 Sig: INHALE 1 PUFF BY MOUTH 2 TIMES DAILY. 10/21/2022 (in office), 09/17/2021 (telemedicine) 11/25/2022 If no future appointments scheduled, and last appointment is greater than a year ago, please schedule patient for a follow-up appointment Last date the medication was ordered: HISTORICAL Pharmacy: [facility] [id number] Is this request for a controlled substance?No Urine Drug Screen:No results found. However, due to the size of the patient record, not all encounters were searched. Please check Results Review for a complete set of results. Patient Phone Numbers Labs: Lab Results Component Value Date/Time CREAT 0.6 08/30/2022 03:52 PM CREAT 0.72 12/18/2021 12:00 AM CREAT 0.6 09/24/2020 05:16 PM POTASSIUM 4.6 08/30/2022 03:52 PM POTASSIUM 4.3 12/18/2021 12:00 AM POTASSIUM 4.0 09/24/2020 05:16 PM TSH 0.70 07/06/2022 01:37 PM TSH 0.69 07/14/2020 04:24 PM LDLCALC 46 09/14/2021 03:22 PM LDLCALC 43 04/05/2019 06:40 AM LDLDIRECT 46 02/21/2020 11:43 AM ALT 65 (H) 08/30/2022 03:52 PM ALT 23 08/21/2020 04:35 PM HGBA1C 7.4 (H) 05/19/2022 02:49 PM HGBA1C 9.9 (H) 07/06/2020 05:24 AM documented in this encounter Plan of Treatment Upcoming Encounters Date Type Specialty Care Team Description 11/23/2022 Hem/Onc Treatment Hematology Oncology [place], Chair 11 Hem Onc Scenery [address] [facility] [place] [address] 11/25/2022 Office Visit Family Medicine Memo Snider MD [address] [place] [address] 11/28/2022 Pharmacy Pharmacy Pharmacist2, [facility] [address] [place] [address] 11/30/2022 [facility] July Poe RN [address] [place] [address] 12/06/2022 Office Visit Gastroenterology Lyssa Stout CRNP [address] [place] [address] 12/08/2022 [facility] Aleyda Campos PA-C [address] [place] [address] 12/08/2022 Office Visit Hematology Oncology Tono Sanchez MD 200 [place] [address] 02/10/2023 Office Visit Sleep Disorders Love Francisco, DO [address] [place] [address] 03/01/2023 PulmDiagnostic Pulmonary Function [place], Pft [address] [place] [address] Scheduled Procedures Name Priority Associated Diagnoses Date/Ti [...] this encounter Medical Devices Implanted Type Area Beef Cattle Farm Manager Device Identifier Shelf Expiration Date Model / Serial / Lot Microtech Sure Clip Implanted:Qty: 2 on 06/03/2020 by Janis Hatch DO at OR [facility] Clip N/A: Colon 04/21/2022 [facility]-F-26-2 35-C-R / / [id number] documented as of this encounter Advance Directives Documents on File Type Date Recorded 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 No Code Status History Code Status Date Activated Date Inactivated Comments Full Code 12/27/2021 2:50 PM 12/27/2021 8:02 PM This order reflects the patients wishes and were consensually agreed upon. Question Answer Comments Discussion of Advance Directives occurred with: Not Discussed Does the patient have a Living Will? No Does the patient have Health Care Power of Director Community Health Nursing? No Full Code 03/31/2021 8:57 PM 04/03/2021 [...] Agents on File Name Relationship Healthcare Agent [facility] p Communication Syed Bustos Spouse Emergency Contact Care Teams Channel Cementer Relationship Specialty Start Date End Date Kooj Dunn MD [address] [place] [address] PCP - General Family Medicine 03/16/21 documented as of this encounter
--- OUTSIDE RECORDS SUMMARY | 2023-05-10 17:06 | External Medical Summary | Summary of Care ---
Author Name Unknown Organization [facility] Address [address] [facility] [place] [address] Phone [phone] Care Team Providers Care Home Health Physical Therapist Name Role Phone Vanita Dunn MD Primary Care Provid er Reason for Visit * Reason Comments IV Therapy Venofer Encounter Details Date Type Department Care Team Description 11/23/2022 Hem/Onc Treatment Hematology/Oncology Treatment, [place] [address] [place] [address] [place], Chair 11 Hem Onc [place] [address] [place] [address] Iron deficiency anemia due to chronic blood loss* Allergies Active Allergy Reactions Severity Noted Date Comments Adhesive Tape Itching 04/29/2020 Penicillins Rash 02/12/2008 Penicillin G 07/20/2018 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 documented as of this encounter (statuses as of 11/23/2022) Medications Medication Sig Dispensed Refills Start Date End Date Status nystatin (NYSTOP) 017440 UNIT/GM powder Apply topically to affected area 3 times a day. 60 g 1 10/16/2019 Active Dexcom G6 Ethnographer Device Use as directed. To test blood sugars 4 times a day Dx E11.9 1 Each 0 09/14/2020 Active Dexcom G6 Transmitter Use as directed. To test blood sugars 4 times a day. Change every 90 days. Dx E11.9 1 Each 3 09/14/2020 Active OneTouch Verio In Vitro Strip (Glucose Blood) TESTING once daily 100 Strip 3 10/29/2020 Active OneTouch Delica Plus [id number] TESTING once daily 100 Each 3 10/29/2020 [...] oxyCODONE HCl 5 MG Oral Tablet (Oxy IR)Indications:Hr Specialist kai pain syndrome Take 1 Tablet by [...] pain 01/24/2012 01/17/2017 Genetic Sleep Disorder Research Other*[id number] 05/13/2011 04/07/2016 Obstructive sleep apnea 01/18/2011 12/27/19 [...] (Prevnar) 05/02/2019 Pneumococcal Conjugate Vacci ne, 20-valent ([id number]) 10/21/2022 Pneumococcal Polysaccharide PPV23 (Pneumovax) 06/01/2010 Seasonal [...] Sign Reading Time Taken Comments Blood Pressure 128/87 11/23/2022 2:26 PM EDT Pulse 70 11/23/2022 2:26 PM EDT Temperature 37.3 C (99.1 F) 11/23/2022 2:26 PM ED T Respiratory Rate 22 11/23/2022 2:26 PM EDT Oxygen Saturation - - Inhaled Oxygen Concentration [...] as of this encounter Nursing Notes * Francine Okeefe RN - 11/23/2022 4:06 PM EDT Goals: Patient will remain free from injury. Possible barriers to meeting goals: possible reaction to treatment Stability of the patient: Moderately stable - low risk of patient condition declining or worsening Summary regarding today's goals: Met: pt tolerated treatment well and remained free from injury Pt discharged in stable condition. * Francine Okeefe RN - 11/23/2022 2:29 PM EDT Chair 11 Patient presents to the clinic today for IV venofer. Patient has no complaints besides she did not want to get out of bed to come today. CVAD accessed, positive blood return noted. Labs Drawn. Venofer infusing. Safety and Risk for Injury Patient will remain free from injury. Ensure appropriate safety devices are available. Provide and maintain safe environment. documented in this encounter Plan of Treatment Upcoming Encounters Date Type Specialty Care Team Description 11/25/2022 Office Visit Family Medicine Memo Snider MD [address] [place] [address] 11/28/2022 Pharmacy Pharmacy Pharmacist2, [facility] [address] [facility] [place] [address] 11/30/2022 [facility] Visit [facility] July Poe RN [address] [place] [address] 12/06/2022 Office Visit Gastroenterology Lyssa Stout CRNP [address] [place] [address] 12/08/2022 [facility] Visit [facility] Aledya Campos PA-C [address] [place] [address] 12/08/2022 Office Visit Hematology Oncology Tono Sanchez MD [address] [facility] [place] [address] 12/14/2022 Hem/Onc Treatment Hematology Oncology 01/04/2023 Hem/Onc Treatment Hematology Oncology [place], Chair 11 Hem Onc [facility] [address] [place] [address] 01/25/2023 Hem/Onc Treatment Hematology Oncology [place], Chair 11 Hem Onc [facility] [address] [place] [address] 02/10/2023 Office Visit Sleep Disorders Love Francisco DO [address] [place] [address] 03/01/2023 PulmDiagnostic Pulmonary Function [place], [place] [address] [place] [address] Pending Results Name Type Priority Associated Diagnoses Date /Time FERRITIN Lab STAT Iron deficiency anemia due to chronic blood loss 11/23/2022 2:12 PM EDT Scheduled Procedures Name Priority Associated [...] encounter Medical Devices Implanted Type Area Clinical Data Management Director Device Identifier Shelf Expiration Date Model / Serial / Lot Microtech Sure Clip Implanted:Qty: 2 on 06/03/2020 by Janis Hatch DO at OR [facility] Clip N/A: Colon 04/21/2022 [facility]-F-26-2 35-C-R / / [id number] documented as of this encounter Procedures Procedure Name Priority Date/Time Associated Diagnosis Comments DIFFERENTIAL, AUTOMATED STAT 11/23/2022 2:12 PM EDT Iron deficiency anemia due to chronic blood loss CBC WITH WBC DIFFERENTIAL STAT 11/23/2022 2:12 PM EDT Iron deficiency anemia due to chronic blood loss CBC STAT 11/23/2022 2:12 PM EDT Iron deficiency anemia due to chronic blood loss DIFFERENTIAL, TECHNOLOGIST REVIEW Routine 11/23/2022 2:12 PM EDT Iron deficiency anemia due to chronic blood loss documented in this encounter Results * (ABNORMAL) DIFFERENTIAL, TECHNOLOGIST REVIEW (11/23/2022 2:12 PM EDT) [facility] nRBCs 11/23/2022 2:40 PM EDT [facility]- Anisocytosis Slight(A) None Seen 11/23/2022 2:40 PM EDT [facility]- Macrocytosis Present(A ) None Seen 11/23/2022 2:40 PM EDT [facility] 56- Tear Drop Cells Few(A) None Seen 2:40 PM EDT [facility]- Blood Blood sample taken from central line / Unknown Central Line / Unknown 11/23/2022 2:12 PM EDT 11/23/2022 2:28 PM EDT Tono Sanchez MD LAB BLOOD ORDERABLES [facility] [address]- [address] [place] [address] * (ABNORMAL) DIFFERENTIAL, AUTOMATED (11/23/2022 2:12 PM EDT) [facility] WBC 3.80(L) 4.00 - 10.80 K/uL 11/23/2022 2:40 PM EDT [facility] 56- Neutrophils % 65.3 40.0 - 75.0 % 11/23/2022 2:40 PM EDT [facility] 56- Lymphocytes % 18.9 18.0 - 42.0 % 11/23/2022 2:40 PM EDT [facility] 56- Monocytes % 10.0 1.0 - 11.0 % 11/23/2022 2:40 PM EDT [facility] 56- Eosinophils % 5.0 0.0 - 6.0 % 11/23/2022 2:40 PM EDT [facility] 56- Basophils % 0.8 0.0 - 2.0 % 11/23/2022 2:40 PM EDT [facility] 56- Absolute Neutrophils 2.48 1.80 - 7.70 K/uL 11/23/2022 2:40 PM EDT [facility] 56- Absolute Lymphocytes 0.72(L) 1.00 - 4.80 K/ul 11/23/2022 2:40 PM EDT [facility] 56 Absolute Monocytes 0.38 0.00 - 1.10 K/uL 11/23/2022 2:40 PM EDT [facility] Absolute Eosinophils 0.19 0.00 - 0.70 K/uL 11/23/2022 2:40 PM EDT [facility] Absolute Basophils 0.03 0.00 - 0.20 K/uL 11/23/2022 2:40 PM EDT [facility] Blood Blood sample taken from central line / Unknown Central Line / Unknown 11/23/2022 2:12 PM EDT 11/23/2022 2:28 PM EDT Tono Sanchez MD LAB BLOOD ORDERABLES [facility] [address] [place] [id number] * (ABNORMAL) CBC (11/23/2022 2:12 PM EDT) WBC 3.80(L) 4.00 - 10.80 K/uL 11/23/2022 2:40 PM EDT [facility] RBC 2.77 3.85 - 5.15 M/uL 11/23/2022 2:40 PM EDT [facility] HGB 10.3(L) 12.0 - 15.3 g/dL 11/23/2022 2:40 PM EDT [facility] HCT 32.1(L) 36.0 - 45.2 % 11/23/2022 2:40 PM EDT [facility] MCV 115.9 81.5 - 97.5 fL 11/23/2022 2:40 PM EDT [facility] MCH 37.2 27.0 - 34.0 pg 11/23/2022 2:40 PM EDT [facility] 56 MCHC 32.1 32.0 - 36.0 g/dL 11/23/2022 2:40 PM EDT [facility] 56 RDW 17.7 11.5 - 15.5 % 11/23/2022 2:40 PM EDT [facility] 56 PLT 65(L) 140 - 400 K/uL 11/23/2022 2:40 PM EDT [facility] 56 MPV 11.5 6.6 - 11.1 fL 11/23/2022 2:40 PM EDT [facility] 56 Blood Blood sample taken from central line / Unknown Central Line / Unknown 11/23/2022 2:12 PM EDT 11/23/2022 2:28 PM EDT Tono Sanchez MD LAB BLOOD ORDERABLES [facility] [address] [place] [address] documented in this encounter Visit Diagnoses Diagnosis [...] ONCE PRN Other, Hypersensitivity Reaction, Starting on Mon11/23/22 at 1412, Until [place] 11/24/22 at 1411, For 24 hours EPINEPHrine 1 MG/ML inj 0.3 mg 0.3 mg, Intramuscular, ONCE PRN Other, Hypersensitivity Reaction or Anaphylaxis, Starting on Mon11/23/22 at 1412, Until [place] 11/24/22 at 1411, For 24 hours hEParin 100 UNIT/ML Lock Flush inj 500 Units 500 Units (5 mL), IV Lock, PRN Other, IV Flush, Starting on Mon11/23/22 at 1412, Until [place] 11/24/22 at 1411, For 24 hours, Do not flush if lock, PICC, or central line not in place; IV infusing or unable to flush. Given 11/23/2022 3:47 PM EDT 500 Units Hydrocortisone Sod Suc (PF) (Solu-Cortef) inj 100 mg 100 mg, IV Push, ONCE PRN Other, Hypersensitivity Reaction, Starting on Mon11/23/22 at 1412, Until [place] 3/16/23 at 1411, For 24 hours NSS infusion 500 mL, Intravenous, at 50 mL/hr, CONTINUOUS, Starting on Mon11/23/22 at 1515, Until [place] 11/24/22 at 0114 Start Infusion 11/23/2022 2:22 PM EDT 500 mL 50 mL/hr sodium chloride 0.9 % flush central line 10 mL 10 mL, IV Push, PRN Other, IV Flush, Starting on Mon11/23/22 at 1412, Until [place] 11/24/22 at 1411, For 24 hours, Do not flush if lock, PICC, or central line not in place; IV infusing or unable to flush. Given 11/23/2022 3:47 PM EDT 10 mL Inactive Administered Medications - up to 3 most recent administrations Medication Order MAR Action Action Date Dose Rate Site Iron Sucrose (Venofer) 300 mg in NSS 250 mL ivpb 300 mg, IV Piggyback, ONCE, 1 dose, On Mon11/23/22 at 1545, Administer over 90 Minutes Start Infusion 11/23/2022 2:23 PM EDT 300 mg 176.67 mL/hr documented in this encounter Advance Directives Documents on File Type Date Recorded Patient Foreign Collection Clerk Expl anation Advance Directives and Living Will 04/29/2021 ADVANCE DIRECTIVE / LIVING WILL LIVING WILL AND HEALTH CARE POA Power of Optical Lathe Operator 04/29/2021 [facility]OWER [facility] A [facility] [...] the patient have Health Care Power of Optical Lathe Operator? No Code Status History Code Status Date Activated Date Inactivated Comments Full Code 12/27/2021 2:50 PM 12/27/2021 8:02 PM This order reflects the patients wishes and were consensually agreed upon. Question Answer Comments Discussion of Advance Directives occurred with: Not Discussed Does the patient have a Living Will? No Does the patient have Health Care Power of Optical Lathe Operator? No Full Code 03/31/2021 8:57 PM [...] Bustos Spouse Emergency Contact Care Teams Home Health Physical Therapist Relationship Specialty Start Date End Date Vanita Dunn MD [address] [place] [address] PCP - General Family Medicine 03/16/21 documented as of this encounter
--- OUTSIDE RECORDS SUMMARY | 2023-05-10 17:06 | External Medical Summary ---
Author Name Unknown Address Unknown Organization [facility] [place] [address] Laboratory Report Ordering Provider Test Date Status JACOB CORBETT 11/23/2022 14:12:02 Final Observation Date Value Abnormality Reference (Units ) Status WBC, Total 11/23/2022 14:12:02 3.80 Below low normal 4. 00-10.80 (K/uL) Final RBC 11/23/2022 14:12:02 2.77 3.85-5.15 (M/uL) Final Hemoglobin 11/23/2022 14:12:02 10.3 Below low normal 12 .0-15.3 (g/dL) Final HCT 11/23/2022 14:12:02 32.1 Below low normal 36. 0-45.2 (%) Final MCV 11/23/2022 14:12:02 115.9 81.5-97.5 (fL) Final MCH 11/23/2022 14:12:02 37.2 27.0-34.0 (pg) Final MCHC 11/23/2022 14:12:02 32.1 32.0-36.0 (g/dL) Final RDW 11/23/2022 14:12:02 17.7 11.5-15.5 (%) Final Platelets 11/23/2022 14:12:02 65 Below low normal 140 -400 (K/uL) Final MPV 11/23/2022 14:12:02 11.5 6.6-11.1 ( fL) Final Performing Location [facility] [place] [address]
--- OUTSIDE RECORDS SUMMARY | 2023-05-10 17:06 | External Medical Summary | Summary of Care ---
Author Name Unknown Organization [facility] Address [address] [facility] [address] Phone [phone] Care Team Providers Care Supervisor Gluing Name Role Phone Vanita Dunn MD Primary Care Provid er Encounter Details Date Type Department Care Team Description 06/14/2022 Orders Only Hematology/Oncology [facility] [address] [place] [address] Chaparrita Cifuentes MD [address] [place] [address] 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 documented as of this encounter (statuses as of 11/24/2022) Medications Medication Sig Dispensed Refills Start Date End Date Status nystatin (NYSTOP) 869120 UNIT/GM powder Apply topically to affected area 3 times a day. 60 g 1 0 Active Dexcom G6 Spool Hauler Device Use as directed. To test blood sugars 4 times a day Dx E11.9 1 Each 0 1 Active Dexcom G6 Transmitter Use as directed. To test blood sugars 4 times a day. Change every 90 days. Dx E11.9 1 Each 3 1 Active OneTouch Verio In Vitro Strip (Glucose Blood) TESTING once daily 100 Strip 3 1 Active OneTouch Delica Plus [id number] TESTING once daily 100 Each 3 1 [...] once weekly 6 mL 5 2 Active Aspirin 81 MG Oral Tablet Chewable CHEW AND SWALLOW 1 TABLET BY MOUTH ONCE DAILY 30 Tablet 8 2 Active Spironolactone 25 MG Oral Tablet [...] (abdominal pain). 40 Tablet 0 2 Active metFORMIN HCl ER 500 MG Oral Tablet Extended Release 24 Hour (Glucophage XR) Take one tablet by mouth daily with a meal 90 Tab 3 1 07/29/20 22 Discontinued Mupirocin 2 % External Ointment (Bactroban) Apply to the right side of the nose twice daily 22 g 0 2 09/17/19 23 Discontinued Escitalopram Oxalate 20 MG Oral Tablet (Lexapro)Indicatio ns:Recurrent major depressive disorder, in partial remission (HCC) TAKE 1 TABLET BY MOUTH DAILY 90 Tablet 3 2 08/04/20 22 Discontinued Nadolol 40 MG Oral Tablet (Corgard)Indicatio ns:HTN, goal below 140/90 TAKE 1 TABLET BY MOUTH ONCE DAILY 90 Tablet 1 2 07/29/20 22 Discontinued Atorvastatin Calcium 80 MG Oral Tablet (Lipitor) TAKE 1 TABLET BY MOUTH AT BEDTIME 90 Tablet 1 2 07/29/20 22 Discontinued Furosemide 20 MG Oral Tablet (Lasix) TAKE 1 TABLET BY MOUTH DAILY as needed for lower extremity swelling 90 Tablet 1 2 09/09/20 22 Discontinued Isosorbide Mononitrate ER 30 MG Oral Tablet Extended Release 24 Hour (Imdur) TAKE 1 TABLET BY MOUTH DAILY 90 Tablet 1 2 07/29/20 22 Discontinued Lactulose 10 GM/15ML Oral Solution (Constulose) Take 30mL by mouth 3 TIMES daily, titrate dose for effect of 3-5 bowel movements daily 1892 mL 3 2 09/16/19 23 Discontinued NovoLOG FlexPen 100 UNIT/ML Subcutaneous Solution Pen-injectorIndica tions:Type 2 diabetes mellitus with hemoglobin A1c goal of less than 8.0% (HCC) 35 Units at breakfast, 39 Units before lunch, 45 Units before supper 120 mL 3 2 07/28/20 22 Discontinued(Ref ill) Oxybutynin Chloride 5 MG Oral Tablet (Ditropan) TAKE 1 TABLET BY MOUTH TWICE DAILY 180 Tablet 1 2 11/11/19 23 Discontinued Lantus SoloStar 100 UNIT/ML Subcutaneous Solution Pen-injectorIndica tions:Type 2 diabetes mellitus with hemoglobin A1c goal of less than 8.0% (HCC) Inject under the skin 50 Units every night at bedtime . 45 mL 3 2 07/28/20 22 Discontinued(Ref ill) Silver sulfADIAZINE 1 % External Cream (Silvadene)Indicat ions:Pressure injury of skin of sacral region, unspecified injury stage Apply topically to affected area daily . Apply to wound 85 g 2 07/05/20 22 Discontinued(Ref ill) Gabapentin 300 MG Oral Capsule (Neurontin)Indicat ions:DM type 2 with diabetic peripheral neuropathy (HCC),Diabetic foot (HCC) take 1 capsule by mouth every morning, 1 capsule midday and 2 capsules in the evening. may take an extra dose in the morning and midday if needed for pain. max daily amount:6 capsules 360 Capsule 0 2 07/29/20 22 Discontinued Pantoprazole Sodium 20 MG Oral Tablet Delayed Release (Protonix)Indicati ons:NAFLD (nonalcoholic fatty liver disease),Other cirrhosis of liver (HCC) TAKE 2 TABLETS BY MOUTH TWICE DAILY 360 Tablet 1 2 10/17/19 23 Discontinued(Ref ill) Benzonatate 200 MG Oral CapsuleIndications :Bronchitis, complicated Take by mouth 1 Capsule as needed in the morning AND 1 Capsule as needed at noon AND 1 Capsule as needed in the evening for Cough. 30 Capsule 1 2 10/18/19 23 Discontinued Hospital, Clinic, or Other Facility [...] as of this encounter (statuses as of 11/24/2022) Active Problems Problem Noted Date Pancytopenia 04/29/2022 Chronic diastolic (congestive) heart jaymie [...] as of this encounter (statuses as of 11/24/2022) Resolved Problems Problem Noted Date Resolved Date Hypertensive heart disease with congestive heart failure [...] pain 01/24/2012 01/17/2017 Genetic Sleep Disorder Research Other*[id number] 05/13/2011 04/07/2016 Obstructive sleep apnea 01/18/2011 12/27/19 [...] as of this encounter (statuses as of 11/24/2022) Immunizations Name Administration Dates Next Due COVID-19 mRNA, LNP-s, No Pre serve, 2-Dose Series (Moderna) 01/05/2022,07/26/2021,12/21/2020,11/09 HEP A - Hepatitis A (Adult > 18 yrs) 09/24/2018, 03/26/2018 Hepatitis B, 20+ yrs 09/24/2018,04/23/2018,03/26 Pneumococcal Conjugate Vacc, 13 Valent (Prevnar) 05/02/2019 Pneumococcal Polysaccharide PPV23 (Pneumovax) 06/01/2010 Seasonal Influenza, Quadriva lent Hd (Fluzone Hd) 06/10/2021 Seasonal Influenza, Quadriva lent, No Preserve, 6 [...] Family Medicine Memo Snider MD [address] [place] [address] 11/28/2022 Pharmacy Pharmacy Pharmacist2, [facility] [address] [place] [address] 11/30/2022 Home Visit [facility] July Poe, [place] [address] [place] [address] 12/06/2022 Office Visit Gastroenterology Lyssa Stout CRNP [address] [place] [address] 12/08/2022 [facility] Visit [facility] Aleyda Campos PA-C [address] [place] [address] 12/08/2022 Office Visit Hematology Oncology Tono Sanchez MD [address] [place] [address] 12/14/2022 Hem/Onc Treatment Hematology Oncology 01/04/2023 Hem/Onc Treatment Hematology Oncology [place], Chair 11 Hem Onc [facility] [address] [facility], [place] [address] 01/25/2023 Hem/Onc Treatment Hematology Oncology [place], Chair 11 Hem Onc [facility] [address] [facility], [place] [address] 02/10/2023 Office Visit Sleep Disorders Love Francisco DO [address] [place] [address] 03/01/2023 PulmDiagnostic Pulmonary Function [place], [address] [place] [address] Scheduled Procedures Name Priority Associated Diagnoses Date/Ti [...] this encounter Medical Devices Implanted Type Area Customs Agent Device Identifier Shelf Expiration Date Model / Serial / Lot Microtech Sure Clip Implanted:Qty: 2 on 06/03/2020 by Janis Hatch DO at OR [facility] Clip N/A: Colon 04/21/2022 [facility]-F-26-2 35-C-R / / [id number] documented as of this encounter Advance Directives Documents on File Type Date Recorded Patient Machine Adjuster Leader Expl anation Advance Directives and Living Will 04/29/2021 ADVANCE DIRECTIVE / LIVING WILL LIVING WILL AND HEALTH CARE POA Power of Spanish Medical Interpreter 04/29/2021 POWER OF A [facility] [...] the patient have Health Care Power of Spanish Medical Interpreter? No Code Status History Code Status Date Activated Date Inactivated Comments Full Code 12/27/2021 2:50 PM 12/27/2021 8:02 PM This order reflects the patients wishes and were consensually agreed upon. Question Answer Comments Discussion of Advance Directives occurred with: Not Discussed Does the patient have a Living Will? No Does the patient have Health Care Power of Spanish Medical Interpreter? No Full Code 03/31/2021 8:57 PM 04/03/2021 [...] Agents on File Name Relationship Healthcare Agent [facility] p Communication Syed Bustos Spouse Emergency Contact Care Teams Supervisor Gluing Relationship Specialty Start Date End Date Vanita Dunn MD [address] [place] [address] PCP - General Family Medicine 03/16/21 documented as of this encounter
--- OUTSIDE RECORDS SUMMARY | 2023-05-10 17:06 | External Medical Summary ---
Author Name Unknown Address Unknown Organization K09[facility] [place] [address] Laboratory Report Ordering Provider Test Date Status JACOB CORBETT 11/23/2022 14:12:02 Final Observation Date Value Abnormality Reference (Units ) Status Nucleated erythrocytes/100 leukocytes [Ratio] in Blood by Automated count 11/23/2022 14:12:02 Final Anisocytosis [Presence] in Blood by Light microscopy 11/23/2022 14:12:02 Slight Abnormal None Seen Final Macrocytes [Presence] in Blood by Light microscopy 11/23/2022 14:12:02 Present Abnormal None Seen Final Dacrocytes [Presence] in Blood by Light microscopy 11/23/2022 14:12:02 Few Abnormal None Seen Final Performing Location [facility] [place] [address]
--- OUTSIDE RECORDS SUMMARY | 2023-05-10 17:06 | External Medical Summary | Summary of Care ---
Author Name Unknown Organization [facility] Address [address] [place] [address] Phone [phone] Care Team Providers Care Drawing Press Operator Name Role Phone Vanita Dunn MD Primary Care Provid er Reason for Visit * Reason Comments [facility]: Transition of Care Encounter Details Date Type Department Care Team Description 11/21/2022 Telemedicine [facility], [facility] [address] [place] [address] Eleni Kelsey CRNP [address] [place] [address] Kaylee Khan, [facility] [address], [place] [id number] History of UTI*; Hypertensive heart failure (HCC); Restrictive lung disease; THAD on CPAP; NG (nonalcoholic steatohepatitis) Allergies Active Allergy Reactions Severity Noted Date Comments Adhesive Tape Itching 04/29/2020 Penicillins Rash 02/12/2008 Penicillin G 07/20/2018 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 documented as of this encounter (statuses as of 11/21/2022) Medications Medication Sig Dispensed Refills Start Date End Date Status nystatin (NYSTOP) 943645 UNIT/GM powder Apply topically to affected area 3 times a day. 60 g 1 10/16/2019 Active Dexcom G6 Meteorological Engineer Device Use as directed. To test blood sugars 4 times a day Dx E11.9 1 Each 0 09/14/2020 Active Dexcom G6 Transmitter Use as directed. To test blood sugars 4 times a day. Change every 90 days. Dx E11.9 1 Each 3 09/14/2020 Active OneTouch Verio In Vitro Strip (Glucose Blood) TESTING once daily 100 Strip 3 10/29/2020 Active Sofie BiosciencesTouch Delica Plus [id number] TESTING once daily 100 Each 3 10/29/2020 [...] MOUTH DAILY 90 Tablet 0 08/04/2022 Active Fluticasone-Salmete rol 250-50 MCG/ACT Inhalation Aerosol Powder Breath Activated Inhale 1 Puff by mouth in the morning and 1 Puff before bedtime. 0 Active Furosemide 20 MG Oral Tablet (Lasix) [...] oxyCODONE HCl 5 MG Oral Tablet (Oxy IR)Indications:Birth Attendant kai pain syndrome Take 1 Tablet by [...] TWICE DAILY 180 Tablet 0 11/10/2022 Active Albuterol Sulfate (2.5 MG/3ML) 0.083% Inhalation [...] as of this encounter (statuses as of 11/21/2022) Active Problems Problem Noted Date Hypertensive heart [...] as of this encounter (statuses as of 11/21/2022) Resolved Problems Problem Noted Date Resolved Date [...] situation. 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 if a termite exterminator helper plan is made -continue lexapro Generalized weakness [...] pain 01/24/2012 01/17/2017 Genetic Sleep Disorder Research Other*[id number] 05/13/2011 04/07/2016 Obstructive sleep apnea 01/18/2011 12/27/19 [...] as of this encounter (statuses as of 11/21/2022) Immunizations Name Administration Dates Next Due COVID-19 mRNA, LNP-s, No Pre serve, 2-Dose Series (Moderna) 01/05/2022,07/26/2021,12/21/2020,11/09 HEP A - Hepatitis A (Adult > 18 yrs) 09/24/2018, 03/26/2018 Hepatitis B, 20+ yrs 09/24/2018,04/23/2018,03/26 Pneumococcal Conjugate Vacc, 13 Valent (Prevnar) 05/02/2019 Pneumococcal Conjugate Vacci ne, 20-valent ([id number]) 10/21/2022 Pneumococcal Polysaccharide PPV23 (Pneumovax) 06/01/2010 Seasonal [...] Sign Reading Time Taken Comments Blood Pressure 100/60 11/21/2022 2:21 PM EDT Pulse 63 11/21/2022 2:21 PM EDT Temperature 36.7 C (98.1 F) 11/21/2022 2:21 PM ED T Respiratory Rate 20 11/21/2022 2:21 PM EDT Oxygen Saturation 95% 11/21/2022 2:21 PM EDT Inhaled Oxygen Concentration - - [...] of this encounter Progress Notes * ZAK Monson - 11/21/2022 2:30 PM EDT Images from the original note were not included. [facility] Problem Oriented Charting Provider Visit Date: 11/21/2022 Time: 2:30 PM [facility] Sub-Program: Focused Care Management (3-9 months) [facility] Episode Start Date: Noted: 09/16/2021 Assessment and Plan History of UTI Recurrent Completed Bactrim and repeat UA/cx neg No sx now ? pessary use - wants to discuss removal but can't find evidence of insertion Hypertensive heart failure (HCC) BP at goal Imdur 30 mg Nadolol 40 mg -> caution with non-selective BB in lung dz but hx of cirrhosis Restrictive lung disease Advair BID Alb neb q6hr prn Tussin prn to follow directions on bottle for cough if found in pharmacy - Albuterol Sulfate; Inhale 1 Vial via nebulizer every 6 hours as needed for Wheezing. THAD on CPAP BiPap at HS and prn BMI 50 NG (nonalcoholic steatohepatitis) Hx DM BMI 50 Metformin ER 500 mg Lactulose 45 ml TID Daily BM Nadolol 40 mg Aldactone 50 mg Lasix prn Additional Medical Decision Making: Lives with spouse, Brice, and has pd CG. Is bedbound but does useHoyer to get OOB. Has HH. Does not adhere with aspiration precautions. Goes to outpt appts when needed. Has [facility] appt on 11/23 and PCP vs on 11/25. Scheduled appointments in the next 60 days: Future Appointments-next 60 days Date/Time Provider Specialty Dept Phone 11/23/2022 2:00 PM Chair 11 Hem Onc [facility] Hematology Oncology [phone] 11/25/2022 2:40 PM (Arrive by 2:25 PM) Memo Snider MD Family Medicine [phone] 11/28/2022 6:10 PM [facility] Pharmacist2 Pharmacy [phone] 11/30/2022 10:00 AM July Poe RN [facility] [phone] 12/06/2022 1:30 PM (Arrive by 1:15 PM) ZAK Bolton Gastroenterology [phone] 12/08/2022 11:30 AM Aleyda Campos PA-C [facility] [phone] 12/08/2022 1:15 PM (Arrive by 1:00 PM) Tono Sanchez MD Hematology Oncology [phone] 02/10/2023 12:00 PM (Arrive by 11:45 AM) Love Francisco DO Sleep Disorders [phone] 03/01/2023 1:00 PM P[facility] [place] [facility] [phone] A total of 30 minutes was spent face to face (via video-based telemedicine if designated as a telemedicine visit) Subjective Subjective Is this a Telemedicine Visit? Yes, Patient location: HOME. I was not in a hospital or clinic location. After connecting through televideo, patient was verified with two unique identifiers. Patient (or authorized legal associate financial representative) was then informed that this was a Telemedicine visit and being conducted confidentially over secure lines. Methods to assure confidentiality were taken. Patient acknowledged consent and understan ding of privacy and security of the Telemedicine visit. The patient agreed to participate. Reason For [facility] Visit: Transition of Care Current Concerns: Shaina Bustos is a 67 year old female seen today for a [facility] provider visit. Seen today for BALDOMERO video vs with EMILE; EMR reviewed and admitted to [facility] on 10/28 for UTI and shortness of breath. Treated with Bactrim. Recent hx of aspiration pneumonia 10/19/22 and completed Omnicef and Flagyl. Is non-adherent with thickened liquids. Had repeat UA and cx neg on 11/03. Seen by usual care team for BALDOMERO. Seen last week on 11/17 by RNCM. Completed Bactrim. Is non-ambulatory but uses Svetlana to get OOB and has stage 2 buttock wound. SW contacted family re: CG concerns. Has pills in blister packs but no med list noted. Requests refill of alb neb solution; discussed use of Tussin prn and not using Tessalon to suppress cough. Has BiPap and has been using mask. Has nebulizer but no medication -> albuterol soln may be in short supply locally also. States [facility] physician "put something in me and I want it out" Unable to find evidence of insertion of ?? pessary and will need HV to discuss in person with her. Today's concerns are: Add alb soln for nebs if can be filled Buttock wound healed per spouse Chronic COLON relieved with low dose Tylenol Needs HV with primary FACS TEACHER to discuss ? pessary removal Has iron follow up this week and PCP vs Review of Systems Constitutional: Positive for fatigue. Negative for activity change, appetite change and fever. HENT: Negative for sore throat. Respiratory: Positive for cough. Negative for wheezing. Uses BiPap Cardiovascular: Negative for chest pain. Gastrointestinal: Negative for constipation. Endocrine: FBS 164 Genitourinary: Negative for difficulty urinating, dysuria and hematuria. Musculoskeletal: Positive for back pain and gait problem (bedbound). Uses Svetlana lift to get OOB Skin: Positive for wound (buttock wound healed). Neurological: Positive for weakness and headaches (daily chronic, uses Tylenol with relief). Psychiatric/Behavioral: The patient is nervous/anxious. Objective Objective Vitals: 11/21/22 1421 Temp: 36.7 C (98.1 F) Pulse: 63 Resp: 20 SpO2: 95% BP: 100/60 Last Weights: Wt Readings from Last 3 Encounters: 10/13/22 113.4 kg (250 lb) 08/12/22 113.4 kg (250 lb) 05/31/22 113.4 kg (250 lb) Last BPs: BP Readings from Last 4 Encounters: 11/21/22 100/60 11/17/22 102/62 11/03/22 114/68 11/01/22 104/60 Physical Exam Vitals reviewed. Constitutional: General: She is not in acute distress. HENT: Head: Normocephalic. Cardiovascular: Rate and Rhythm: Normal rate and regular rhythm. Heart sounds: Murmur heard. Pulmonary: Effort: Pulmonary effort is normal. No respiratory distress. Comments: Diminished BS throughout Genitourinary: Comments: deferred Musculoskeletal: Right lower leg: No edema. Left lower leg: No edema. Skin: Coloration: Skin is not pale. Neurological: Mental Status: She is alert. Mental status is at baseline. Psychiatric: Mood and Affect: Mood normal. Behavior: Behavior normal. Thought Content: Thought content normal. Lab Review: I have reviewed the following results: BMP results Recent Labs Units 08/30/22 1552 05/19/22 1449 12/20/21 1448 SODIUM - [facility] mmol/L 139 143 138 POTASSIUM - [facility] mmol/L 4.6 4.0 4.3 CHLORIDE - [facility] mmol/L 106 111* 103 CO2 - [facility] mmol/L 23 23 26 CREATININE - [facility] mg/dL 0.6 0.8 0.7 BUN - [facility] mg/dL 17 18 13 CBC results Recent Labs Units 10/14/22 1121 09/07/22 1204 08/30/22 1552 WBC AUTO - [facility] K/uL 3.85* 3.98* 5.26 HGB - [facility] g/dL 11.2* 10.5* 10.3* HCT - [facility] % 35.7* 33.4* 33.2* PLATELET AUTO - [facility] K/uL 75* 70* 63* HbA1c results Recent Labs Units 05/19/22 1449 01/24/22 0834 08/19/21 1619 HEMOGLOBIN A1C - [facility] % 7.4* 6.9* 7.1* TSH results Recent Labs Units 07/06/22 1337 05/19/22 1449 06/10/21 1445 TSH - [facility] uIU/mL 0.70 0.04* 0.02* Hepatic panel results Recent Labs Units 08/30/22 1552 04/28/22 1421 12/20/21 1448 PROTEIN - [facility] g/dL 6.3 6.5 6.7 BILIRUBIN, TOTAL - [facility] mg/dL 1.8* 1.4* 1.2 ALKALINE PHOSPHATASE - [facility] U/L 106 127 112 AST - [facility] U/L 113* 51* 41* ALT - [facility] U/L 65* 30 25 Medication Review "Bottles Out" medication review not performed today due to uses blister packs with no label with medication list reviewed and updated in the EMR as appropriate Mobility Evaluation: [facility] Assessment: [facility] ([facility] Care) Fall Risk Assessment Tool Age 65+: Yes (11/21/221399) Diagnosis (3 or more co-existing): Yes (11/21/221399) Prior history of falls within 3 months: No (11/21/221399) Incontinence: Yes (11/21/221399) Visual impairment: Yes (11/21/221399) Impaired functional mobility: Yes (11/21/221399) Environmental hazards: Yes (11/21/221399) Poly Pharmacy (4 or more prescriptions - any type): Yes (11/21/221399) Pain affecting level of function: No (11/21/221399) Cognitive impairment: Yes (11/21/221399) Score - a score of 4 or more is considered at risk for fallin (11/21/221399) Assistive Devices Used in the Home: Manual Wheelchair Hospital bed bound Svetlana lift ZAK Hart 2:30 PM *Communication sent to PCP (via [facility] if [facility]), [facility]/Population Health Care Team members,relevant Specialty Care Physicians* * Kaylee Khan, [facility] Regulatory Affairs Internship - 11/21/2022 2:27 PM EDT Community [facility] Regulatory Affairs Internship Visit Date: 11/21/2022 Time: 2:27 PM Name: Shaina Bustos : 1955 Referral Source: manufacturing project manager Source of Information: Patient Spoken language: yakut Patient can read in Thai: Yes. Garbage Pick Up Worker needed: No. COVID-19 screening completed: Yes Vitals: Vital signs completed: Yes, vital signs within normal range. BP 100/60 | Pulse 63 | Temp 36.7 C (98.1 F) | Resp 20 | SpO2 95% Condition Changes: Changes in health or social status since last visit: Patient reporting Ongoing cough BSG 172 after GOALS Feel better Control pain in Back Getting out of the house more The patient has new concerns since last visit: No Progress towards goals since last visit: Medications: Medication review completed? Does the patient have barriers to medication adherence? Yes. Remembering to reorder prescriptions: . sometimes is confused on when to give medication Patient reports difficulty paying for medications or might in the future: No. Telehealth: This is a telehealth visit: Yes. Type of telehealth visit: Return/Routine Visit conducted with: Physician/AP Symptoms Surveys and Evaluations: MAHC10 completed this visit: Yes. Score is 4 or more? Yes, notified Provider/Director Of Infection Prevention Last flowsheet values for MAHC10: Age 65+: 1 (11/21/2022 2:00 PM) Diagnosis [...] at risk for fallin (11/21/2022 2:00 PM) Plan: Plan for the patient . Patient's 'Red Flags': 1. S/s of UTI - Fever, confusion 2. Increased SOB 3. Fever Follow Up: Patient encouraged to call the intake phone number for all urgent but not emergent issues. Treatment/Plan: Continue meds as prescribed/reviewed Use nebulizer 4x a day as needed Finish entire course of abxs APAP prn for discomfort/fever Cough and deep breathing Low Na, CCD diet Frequent repositioning, every 2 hours CG 5 days a week, 8-9 hrs each day Svetlana lift for transfers Scheduled to follow up with patient as needed Kaylee Khan [facility] Intern[facility] 11/21/2022 2:27 PM Electronically signed by Kaylee Khan [facility] Internship at 11/21/2022 4:23 PM EDT documented in this encounter Plan of Treatment Upcoming Encounters Date Type Specialty Care Team Description 11/23/2022 Hem/Onc Treatment Hematology Oncology [place], Chair 11 Hem Onc [facility] [address] [facility] [address] 11/25/2022 Office Visit Family Medicine Memo Snider MD [address] [place] [id number] 11/28/2022 Pharmacy Pharmacy Pharmacist2, [facility] [address] [facility] [place] [address] 11/30/2022 Home Visit [facility] July Poe RN [address] [place] [phone] 12/06/2022 Office Visit Gastroenterology Lyssa Stout CRNP [address] [place] [address] 12/08/2022 Home Visit [facility] Aleyda Campos PA-C [address] [place] [address] 12/08/2022 Office Visit Hematology Oncology Tono Sanchez MD [address] [place] [address] 02/10/2023 Office Visit Sleep Disorders Love Francisco, DO [address] [place] [address] 03/01/2023 PulmDiagnostic Pulmonary Function [place], Pft [address] [place] [address] Scheduled Procedures Name Priority Associated Diagnoses Date/Ti [...] this encounter Medical Devices Implanted Type Area Machine Setter Sheet Metal Device Identifier Shelf Expiration Date Model / Serial / Lot [employer] Sure Clip Implanted:Qty: 2 on 06/03/2020 by Janis Hatch DO at OR [facility] Clip N/A: Colon 04/21/2022 [facility]-F-26-2 35-C-R / / [id number] documented as of this encounter Visit Diagnoses Diagnosis History of UTI- Primary Personal history of urinary (tract) infection Hypertensive heart failure (HCC) Unspecified hypertensive heart disease with heart failure Restrictive lung disease Other diseases of lung, not elsewhere classified THAD on CPAP Obstructive sleep apnea (adult) (pediatric) NG (nonalcoholic steatohepatitis) Other chronic nonalcoholic liver disease documented in this encounter Advance Directives Documents on File Type Date Recorded Patient Audio Visual Collections Coordinator Expl anation Advance Directives and Living Will 04/29/2021 ADVANCE DIRECTIVE / LIVING WILL LIVING WILL AND HEALTH CARE POA Power of Humanities Teacher 04/29/2021 POWER OF A [facility] [...] the patient have Health Care Power of Humanities Teacher? No Code Status History Code Status Date Activated Date Inactivated Comments Full Code 12/27/2021 2:50 PM 12/27/2021 8:02 PM This order reflects the patients wishes and were consensually agreed upon. Question Answer Comments Discussion of Advance Directives occurred with: Not Discussed Does the patient have a Living Will? No Does the patient have Health Care Power of Humanities Teacher? No Full Code 03/31/2021 8:57 PM [...] Agents on File Name Relationship Healthcare Agent [facility] p Communication Syed Bustos Spouse Emergency Contact Care Teams Drawing Press Operator Relationship Specialty Start Date End Date Vanita Dunn MD [address], [place] [phone] PCP - General Family Medicine 03/16/21 documented as of this encounter
--- OUTSIDE RECORDS SUMMARY | 2023-05-10 17:06 | External Medical Summary ---
Author Name Unknown Address Unknown Organization K09:[facility] [place] [address] Laboratory Report Ordering Provider Test Date Status JACOB CORBETT 11/23/2022 14:12:02 Final Observation Date Value Abnormality Reference (Units ) Status SYNC LEUKOCYTES IN BLOOD BY AUTOMATED COUNT 11/23/2022 14:12:02 3.80 Below low normal 4.00-10.80 (K/uL) Final Segs 11/23/2022 14:12:02 65.3 40.0-75.0 (%) Final Lymphs % 11/23/2022 14:12:02 18.9 18.0-42.0 (%) Final Monos 11/23/2022 14:12:02 10.0 1.0-11.0 (%) Final Eosinophils 11/23/2022 14:12:02 5.0 0.0-6.0 (%) Final Basos 11/23/2022 14:12:02 0.8 0.0-2.0 (%) Final Absolute Segs 11/23/2022 14:12:02 2.48 1.80-7.70 (K/uL) Final Lymphs, absolute 11/23/2022 14:12:02 0.72 Below low normal 1.00-4.80 (K/ul) Final Monos, Abs 11/23/2022 14:12:02 0.38 0.00-1.10 (K/uL) Final Eos, Abs 11/23/2022 14:12:02 0.19 0.00-0.70 (K/uL) Final Basos, Abs 11/23/2022 14:12:02 0.03 0.00-0.20 (K/uL) Final Performing Location [facility] [place] [address]
--- OUTSIDE RECORDS SUMMARY | 2023-05-10 17:07 | External Medical Summary | Summary of Care ---
Author Name Unknown Organization [facility] Address [address] [place] [address] Phone [phone] Care Team Providers Care Base Brander Name Role Phone Vanita Dunn MD Primary Care Provid er Reason for Visit * Reason Comments [facility]: Transition of Care Encounter Details Date Type Department Care Team Description 11/21/2022 Telemedicine [facility] [address] [place] [address] Eleni Kelsey CRNP [address] [place] [address] Kaylee Khan, Community Health Environmental Engineering Aide [address], [place] [id number] History of UTI*; Hypertensive heart failure (HCC); Restrictive lung disease; THAD on CPAP; NG (nonalcoholic steatohepatitis) Allergies Active Allergy Reactions Severity Noted Date Comments Adhesive Tape Itching 04/29/2020 Penicillins Rash 02/12/2008 Penicillin G 07/20/2018 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 documented as of this encounter (statuses as of 11/21/2022) Medications Medication Sig Dispensed Refills Start Date End Date Status nystatin (NYSTOP) 707925 UNIT/GM powder Apply topically to affected area 3 times a day. 60 g 1 10/16/2019 Active Dexcom G6 Shingles Roofer Helper Device Use as directed. To test blood sugars 4 times a day Dx E11.9 1 Each 0 09/14/2020 Active Dexcom G6 Transmitter Use as directed. To test blood sugars 4 times a day. Change every 90 days. Dx E11.9 1 Each 3 09/14/2020 Active OneTouch Verio In Vitro Strip (Glucose Blood) TESTING once daily 100 Strip 3 10/29/2020 Active MentorDOTMeTouch Delica Plus [id number] TESTING once daily 100 Each 3 10/29/2020 [...] oxyCODONE HCl 5 MG Oral Tablet (Oxy IR)Indications:Cotton Farmer kai pain syndrome Take 1 Tablet by [...] pain 01/24/2012 01/17/2017 Genetic Sleep Disorder Research Other*[id number] 05/13/2011 04/07/2016 Obstructive sleep apnea 01/18/2011 12/27/19 [...] (Prevnar) 05/02/2019 Pneumococcal Conjugate Vacci ne, 20-valent ([id number]) 10/21/2022 Pneumococcal Polysaccharide PPV23 (Pneumovax) 06/01/2010 Seasonal [...] Provider Visit Date: 11/21/2022 Time: 2:30 PM [facility] Sub-Program: Focused Care Management (3-9 months) [facility] Episode Start Date: Noted: 09/16/2021 Assessment [...] 11/23/2022 2:00 PM Chair 11 Hem Onc [facility] Hematology Oncology [phone] 11/25/2022 2:40 PM (Arrive by 2:25 PM) eMmo Snider MD Family Medicine [phone] 11/28/2022 6:10 PM [facility] Pharmacist2 Pharmacy [phone] 11/30/2022 10:00 AM July Poe RN [facility] [phone] 12/06/2022 1:30 PM (Arrive by 1:15 PM) [facility] Gastroenterology [phone] 12/08/2022 11:30 AM Aleyda Campos PA-C [facility] [phone] 12/08/2022 1:15 PM (Arrive by 1:00 PM) Tono Sanchez MD Hematology Oncology [phone] 02/10/2023 12:00 PM (Arrive by 11:45 AM) Love Francisco DO Sleep Disorders [phone] 03/01/2023 1:00 PM [facility] [place] [facility] Function [phone] A total of 30 minutes was spent face to face (via video-based telemedicine if designated as a telemedicine visit) Subjective Subjective Is this a Telemedicine Visit? Yes, Patient location: HOME. I was not in a hospital or clinic location. After connecting through televideo, patient was verified with two unique identifiers. Patient (or authorized legal sales representative marine supplies) was then informed that this was a Telemedicine visit and being conducted confidentially over secure lines. Methods to assure confidentiality were taken. Patient acknowledged consent and understanding of privacy and security of the Telemedicine visit. The patient agreed to participate. Reason For [facility] Visit: Transition of Care Current Concerns: Shaina Bustos is a 67 year old female seen today for a [facility] provider visit. Seen today for BALDOMERO video vs with EMILE; EMR reviewed and admitted to [facility] on 10/28 for UTI and shortness of [...] be in short supply locally also. States [facility] physician "put something in me and I want it out" Unable to find evidence of insertion of ?? pessary and will need HV to discuss in person with her. Today's concerns are: Add alb soln for nebs if can be filled Buttock wound healed per spouse Chronic COLON relieved with low dose Tylenol Needs HV with primary REPAIRER RECREATIONAL VEHICLE to discuss ? pessary removal Has iron [...] in the EMR as appropriate Mobility Evaluation: [facility] Assessment: [facility] ([facility] Care) Fall Risk Assessment Tool Age [...] 2:30 PM *Communication sent to PCP (via autofax if [facility]), [facility]/Population Health Care Team members,relevant Specialty Care Physicians* * Kaylee Khan, [facility] Health Environmental Engineering Aide - 11/21/2022 2:27 PM EDT Community Health Environmental Engineering Aide Visit Date: 11/21/2022 Time: 2:27 PM Name: Shaina Bustos : 1955 Referral Source: microbiology lab manager Source of Information: Patient Spoken language: croatian Patient can read in Bermudian: Yes. Lacer And Tier needed: No. COVID-19 screening completed: Yes Vitals: [...] Score is 4 or more? Yes, notified Provider/Pheresis Nurse Last flowsheet values for MAHC10: Age 65+: [...] up with patient as needed Kaylee Khan [facility] Health Environmental Engineering Aide 11/21/2022 2:27 PM Electronically signed by Kaylee Khan [facility] Health Environmental Engineering Aide at 11/21/2022 4:23 PM EDT documented in this encounter Plan of Treatment Upcoming Encounters Date Type Specialty Care Team Description 11/23/2022 Hem/Onc Treatment Hematology Oncology [place], Chair [address] [facility] [address] [facility] [place] [address] 11/25/2022 Office Visit Family Medicine Memo Snider MD [address] [place] [address] 11/28/2022 Pharmacy Pharmacy Pharmacist2, [facility] 200 [facility] [place] [address] 11/30/2022 Home Visit [facility] July Poe RN [address] [place] [address] 12/06/2022 Office Visit Gastroenterology Lyssa Stout CRNP [address] [place] [address] 12/08/2022 Home Visit [facility] Aleyda Campos PA-C [address] [place] [address] 12/08/2022 Office Visit Hematology Oncology Tono Sanchez MD 200 [place] [address] 02/10/2023 Office Visit Sleep Disorders Love Francisco, DO [address] [facility] [place] [address] 03/01/2023 PulmDiagnostic Pulmonary Function [place], Pft [address] [place] [address] Scheduled Procedures Name Priority Associated Diagnoses Date/Ti [...] encounter Medical Devices Implanted Type Area Clinical Reimbursement Specialist Device Identifier Shelf Expiration Date Model / Serial / Lot Microtech Sure Clip Implanted:Qty: 2 on 06/03/2020 by Janis Hatch DO at OR [facility] Clip N/A: Colon 04/21/2022 [facility]-F-26-2 35-C-R / / [id number] documented as of this encounter Visit Diagnoses [...] Documents on File Type Date Recorded Patient Public Policy Analyst Expl anation Advance Directives and Living Will 04/29/2021 ADVANCE DIRECTIVE / LIVING WILL LIVING WILL AND HEALTH CARE POA Power of Radiocommunications Technician 04/29/2021 POWER OF A TTORNEY HEALTH [...] the patient have Health Care Power of Radiocommunications Technician? No Code Status History Code Status Date Activated Date Inactivated Comments Full Code 12/27/2021 2:50 PM 12/27/2021 8:02 PM This order reflects the patients wishes and were consensually agreed upon. Question Answer Comments Discussion of Advance Directives occurred with: Not Discussed Does the patient have a Living Will? No Does the patient have Health Care Power of Radiocommunications Technician? No Full Code 03/31/2021 8:57 PM [...] Syed Bustos Spouse Emergency Contact Care Teams Base Brander Relationship Specialty Start Date End Date Vanita Dunn MD [address] [place], [place] [phone] PCP - General Family Medicine 03/16/21 documented as of this encounter
--- OUTSIDE RECORDS SUMMARY | 2023-05-10 17:09 | External Medical Summary | Summary of Care ---
Author Name Unknown Organization [facility] Address [address] [facility] [place] [address] Phone [phone] Care Team Providers Care Process Control Technician Name Role Phone Vanita Dunn MD Primary Care Provid er Reason for Visit * Reason Comments Diabetes Management Encounter Details Date Type Department Care Team Description 11/14/2022 Office Visit Pharmacy, [facility] [place] [address] [facility] [place] [address] Pharmacist2, [facility] [address] [facility] [place] [address] Type 2 diabetes mellitus with hemoglobin A1c goal of less than 8.0% ([facility])* Allergies Active Allergy Reactions Severity Noted Date Comments Adhesive Tape Itching 04/29/2020 Penicillins Rash 02/12/2008 Penicillin G 07/20/2018 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 documented as of this encounter (statuses as of 11/14/2022) Medications Medication Sig Dispensed Refills Start Date End Date Status nystatin (NYSTOP) 636514 UNIT/GM powder Apply topically to affected area 3 times a day. 60 g 1 10/16/2019 Active Dexcom G6 Weigher And Crusher Device Use as directed. To test blood sugars 4 times a day Dx E11.9 1 Each 0 09/14/2020 Active Dexcom G6 Transmitter Use as directed. To test blood sugars 4 times a day. Change every 90 days. Dx E11.9 1 Each 3 09/14/2020 Active OneTouch Verio In Vitro Strip (Glucose Blood) TESTING once daily 100 Strip 3 10/29/2020 Active TraxoTouch Delica Plus [id number] TESTING once daily 100 Each 3 10/29/2020 [...] oxyCODONE HCl 5 MG Oral Tablet (Oxy IR)Indications:Biscuit Packer kai pain syndrome Take 1 Tablet by [...] TWICE DAILY 180 Tablet 0 11/10/2022 Active Hospital, Clinic, or Other Facility Administered [...] as of this encounter (statuses as of 11/14/2022) Active Problems Problem Noted Date Aspiration pneumonia 11/01/2022 Last Assessment & Plan: Finished flagyl and omnicef from admission 10/19 Still having cough difficulty clearing secretions. Reportedly seen by speech. Recommended thickened liquids. Pt not compliant. Urged aspiration preventions Major depressive disorder, recurrent, mo derate 11/01/2022 [...] Last Assessment & Plan: Noncompliant with lactuose Constipation 05/02/2012 HTN, goal below 130/80 03/27/2012 Last Assessment & Plan: BP stable -continue isosorbide, nadolol UTI (urinary tract infection) 01/27/2012 Last Assessment & Plan: Unable to see urine cx from recent hospitalization 10/29 Currently on bactrim. Repeat straight cath UA this week Cerebral palsy 01/24/2012 Spinal stenosis of lumbar region without neurogenic claudication 12/27/2010 DDD (degenerative disc disease), lumbar Dyslipidemia documented as of this encounter (statuses as of 11/14/2022) Resolved Problems Problem Noted Date Resolved Date [...] 09/13/2021 Diverticulosis of colon 05/02/2012 02/14/20 18 Internal hemorrhoids 04/12/2012 07/02/2014 Migraine variant, intractable 03/28/2012 Flatulence, eructation and gas pain 03/28/2012 06/07/2016 Shoulder joint pain 03/27/2012 06/07/2016 Myalgia and myositis 03/27/2012 07/02/2014 Chronic pain 03/27/2012 07/02/2014 Shoulder joint pain 03/27/2012 07/02/2014 Dyslipidemia, goal LDL below 100 03/27/2012 06/07/2016 Hypothyroidism 03/27/2012 01/17/2017 MEDICATION USE AGREEMENT 03/27/2012 012 MEDICATION USE AGREEMENT 03/27/2012 017 Overview: 03/27/12 Chronic rhinitis 03/27/2012 09/13/2021 Sleep disturbance 01/24/2012 07/02/2014 Malaise and fatigue 01/24/2012 06/07/2016 Myalgia and myositis 01/24/2012 06/07/2016 Urinary frequency 01/24/2012 07/02/2014 Urgency of urination 01/24/2012 06/07/2016 Kidney disease, chronic, stage III (GFR 30-59 ml /min) 01/24/2012 03/27/2012 Chronic pain 01/24/2012 01/17/2017 Genetic Sleep Disorder Research Other*[id number] 05/13/2011 04/07/2016 Obstructive sleep apnea 01/18/2011 12/27/19 [...] as of this encounter (statuses as of 11/14/2022) Immunizations Name Administration Dates Next Due COVID-19 mRNA, LNP-s, No Pre serve, 2-Dose Series (Moderna) 01/05/2022,07/26/2021,12/21/2020,11/09 HEP A - Hepatitis A (Adult > 18 yrs) 09/24/2018, 03/26/2018 Hepatitis B, 20+ yrs 09/24/2018,04/23/2018,03/26 Pneumococcal Conjugate Vacc, 13 Valent (Prevnar) 05/02/2019 Pneumococcal Conjugate Vacci ne, 20-valent ([id number]) 10/21/2022 Pneumococcal Polysaccharide PPV23 (Pneumovax) 06/01/2010 Seasonal [...] as of this encounter Progress Notes * Joe Hoff [facility] - 11/14/2022 2:00 PM EST Patient had to reschedule today's chemo appointment. Unable to download dexcom at this time. Will plan to reschedule DM appointment when offical time is set for next chemo infusion day. Joe Hoff PharmD, [facility] Clinical Pharmacist 11/14/2022, 1:30 PM Electronically signed by Joe Hoff [facility] at 11/14/2022 1:35 PM EST documented in this encounter Plan of Treatment Upcoming Encounters Date Type Specialty Care Team Description 11/15/2022 Office Visit Family Medicine Vanita Dunn MD [address] [place] [address] 11/17/2022 Home Visit [facility] July Poe RN [address] [place] [address] 11/18/2022 Imaging Radiology 11/21/2022 Telemedicine [facility] Eleni Kelsey CRNP [address] [place] [facility] [place] [address] Kaylee Khan, Community Health Ophthalmology Technician [address] [place] [address] 11/28/2022 Pharmacy Pharmacy Pharmacist2, [facility] [address] [place] [address] 12/06/2022 Office Visit Gastroenterology Lyssa Stout CRNP [address] [place] [address] 12/08/2022 Home Visit [facility] Aleyda Campos PA-C 132 [facility] [place] [address] 12/08/2022 Office Visit Hematology Oncology Tono Sanchez MD 200 [facility] [place] [address] 02/10/2023 Office Visit Sleep Disorders Love Francisco, DO 132 [facility] [place] [address] 03/01/2023 PulmDiagnostic Pulmonary Function West, Pft [address] [place] [address] Scheduled Procedures Name Priority Associated Diagnoses Date/Ti [...] this encounter Medical Devices Implanted Type Area Senior Sous Chef Device Identifier Shelf Expiration Date Model / Serial / Lot Microtech Sure Clip Implanted:Qty: 2 on 06/03/2020 by Janis Hatch DO at OR [facility] Clip N/A: Colon 04/21/2022 [facility]-F-26-2 35-C-R / / [id number] documented as of this encounter Visit Diagnoses Diagnosis Type 2 diabetes mellitus with hemoglobin A1c goal of less than 8.0% (HCC)- Primary documented in this encounter Additional Health Concerns Infection Onset Date Last Indicated Resolved Time MRSA 09/17/2022 09/17/2022 documented as of this encounter Advance Directives Documents on File Type Date Recorded Patient Transition Teacher Expl anation Advance Directives and Living Will 04/29/2021 ADVANCE DIRECTIVE / LIVING WILL LIVING WILL AND HEALTH CARE POA Power of Tool Setter Apprentice 04/29/2021 POWER OF A TTORNEY HEALTH [...] patient have Health Care Power of Tool Setter Apprentice? No Code Status History Code Status Date Activated Date Inactivated Comments Full Code 12/27/2021 2:50 PM 12/27/2021 8:02 PM This order reflects the patients wishes and were consensually agreed upon. Question Answer Comments Discussion of Advance Directives occurred with: Not Discussed Does the patient have a Living Will? No Does the patient have Health Care Power of Tool Setter Apprentice? No Full Code 03/31/2021 8:57 PM [...] Syed Bustos Spouse Emergency Contact Care Teams Process Control Technician Relationship Specialty Start Date End Date Vanita Dunn MD [address] [place] [address] PCP - General Family Medicine 03/16/21 documented as of this encounter
--- OUTSIDE RECORDS SUMMARY | 2023-05-10 17:09 | External Medical Summary | Summary of Care ---
Author Name Unknown Organization [facility] [address] [facility] [place] [address] Phone [phone] Care Team Providers Care Light Air Defense Artillery Crewmember Name Role Phone Vanita Dunn MD Primary Care Provid er Reason for Visit * Reason Onset Date Comments Appointment Canceled 11/14/2022 Encounter Details Date Type Department Care Team Description 11/14/2022 Telephone Hematology/Oncology [facility] [address] [place] [address] Tono Sanchez MD [address] [place] [address] Appointment Canceled Allergies Active Allergy Reactions Severity Noted Date Comments Adhesive Tape Itching 04/29/2020 Penicillins Rash 02/12/2008 Penicillin G 07/20/2018 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 documented as of this encounter (statuses as of 11/14/2022) Medications Medication Sig Dispensed Refills Start Date End Date Status nystatin (NYSTOP) 092898 UNIT/GM powder Apply topically to affected area 3 times a day. 60 g 1 10/16/2019 Active Dexcom G6 Lead Performance Support Analyst Device Use as directed. To test blood sugars 4 times a day Dx E11.9 1 Each 0 09/14/2020 Active Dexcom G6 Transmitter Use as directed. To test blood sugars 4 times a day. Change every 90 days. Dx E11.9 1 Each 3 09/14/2020 Active OneTouch Verio In Vitro Strip (Glucose Blood) TESTING once daily 100 Strip 3 10/29/2020 Active OneTouch Delica Plus Drfona11I TESTING once daily 100 Each 3 10/29/2020 [...] oxyCODONE HCl 5 MG Oral Tablet (Oxy IR)Indications:Transformation Consultant kai pain syndrome Take 1 Tablet by [...] situation. 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 if a termite inspector plan is made -continue lexapro Generalized [...] pain 01/24/2012 01/17/2017 Genetic Sleep Disorder Research Other*[id number] 05/13/2011 04/07/2016 Obstructive sleep apnea 01/18/2011 12/27/19 [...] (Prevnar) 05/02/2019 Pneumococcal Conjugate Vacci ne, 20-valent ([id number]) 10/21/2022 Pneumococcal Polysaccharide PPV23 (Pneumovax) 06/01/2010 Seasonal [...] encounter Miscellaneous Notes * Telephone Encounter - Dinorah Teixeira LPN - 11/14/2022 11:26 AM EST Shaina's Syed called office and left message with no other information. Returned call to Shaina Lynch also on line. Frida will not be coming to Venofer infusion appointment today at 1pm. Asked Syed and Shaina when they would like to reschedule and ySed states he does not know at this time. Scheduling: - -Please contact patient to re-schedule Venofer on 503 schedule -Please cancel Venofer appointment on 503 schedule today at 1 pm, patient is not coming. documented in this encounter Plan of Treatment Upcoming Encounters Date Type Specialty Care Team Description 11/14/2022 Office Visit Pharmacy Pharmacist2, [facility] Sp [address] [place] [address] 11/15/2022 Office Visit Family Medicine Vanita Dunn MD [address], [place] [phone] 11/17/2022 [facility] Visit [facility] [address] [facility] [address] 11/18/2022 Imaging Radiology 11/21/2022 Telemedicine [facility] Eleni Kelsey CRNP [address] [facility] [place] [address] Kaylee Khan, Community Health Repair Manager [address] [place] [address] 12/06/2022 Office Visit Gastroenterology Lyssa Stout CRNP [address] [place] [address] 12/08/2022 Home Visit [facility] Aleyda Campos PA-C [address] [address] 12/08/2022 Office Visit Hematology Oncology Tono Sanchez MD 200 [place] [address] 02/10/2023 Office Visit Sleep Disorders Love Francisco DO [address] [place] [address] 03/01/2023 PulmDiagnostic Pulmonary Function West, Pft [address] [facility] [place] [address] Scheduled Procedures Name Priority Associated Diagnoses Date/Ti [...] encounter Medical Devices Implanted Type Area Customer Logistics Manager Device Identifier Shelf Expiration Date Model / Serial / Lot Microtech Sure Clip Implanted:Qty: 2 on 06/03/2020 by Janis Hatch DO at OR [facility] Clip N/A: Colon 04/21/2022 [facility]-F-26-2 35-C-R / / [id number] documented as of this encounter Additional Health Concerns Infection Onset Date Last Indicated Resolved Time MRSA 09/17/2022 09/17/2022 documented as of this encounter Advance Directives Documents on File Type Date Recorded Patient Technology Engineer Expl anation Advance Directives and Living Will 04/29/2021 ADVANCE DIRECTIVE / LIVING WILL LIVING WILL AND HEALTH CARE POA Power of Smt Machine Operator 04/29/2021 POWER OF A TTORNEY [...] the patient have Health Care Power of Smt Machine Operator? No Code Status History Code Status Date Activated Date Inactivated Comments Full Code 12/27/2021 2:50 PM 12/27/2021 8:02 PM This order reflects the patients wishes and were consensually agreed upon. Question Answer Comments Discussion of Advance Directives occurred with: Not Discussed Does the patient have a Living Will? No Does the patient have Health Care Power of Smt Machine Operator? No Full Code 03/31/2021 8:57 [...] Syed Bustos Spouse Emergency Contact Care Teams Light Air Defense Artillery Crewmember Relationship Specialty Start Date End Date Vanita Dunn MD [address] [place] [phone] PCP - General Family Medicine 03/16/21 documented as of this encounter
--- OUTSIDE RECORDS SUMMARY | 2023-05-10 17:09 | External Medical Summary | Summary of Care ---
Author Name Unknown Organization [facility] Address [address] [facility] [address] Phone [phone] Care Team Providers Care Business Support Specialist Name Role Phone Vanita Dunn MD Primary Care Provid er Reason for Visit * Reason Onset Date Comments Appointment Canceled 11/14/2022 Encounter Details Date Type Department Care Team Description 11/14/2022 Telephone Hematology/Oncology [facility] [address] [place] [address] Tono Sanchez MD [address] [place] [address] Appointment Canceled Allergies Active Allergy Reactions Severity Noted Date Comments Adhesive Tape Itching 04/29/2020 Penicillins Rash 02/12/2008 Penicillin G 07/20/2018 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 documented as of this encounter (statuses as of 11/15/2022) Medications Medication Sig Dispensed Refills Start Date End Date Status nystatin (NYSTOP) 373420 UNIT/GM powder Apply topically to affected area 3 times a day. 60 g 1 10/16/2019 Active Dexcom G6 Hospitalist Physician Device Use as directed. To test blood sugars 4 times a day Dx E11.9 1 Each 0 09/14/2020 Active Dexcom G6 Transmitter Use as directed. To test blood sugars 4 times a day. Change every 90 days. Dx E11.9 1 Each 3 09/14/2020 Active OneTouch Verio In Vitro Strip (Glucose Blood) TESTING once daily 100 Strip 3 10/29/2020 Active OneTouch Delica Plus [id number] TESTING once daily 100 Each 3 10/29/2020 [...] oxyCODONE HCl 5 MG Oral Tablet (Oxy IR)Indications:Siding Mechanic kai pain syndrome Take 1 Tablet by [...] as of this encounter (statuses as of 11/15/2022) Active Problems Problem Noted Date Aspiration pneumonia [...] as of this encounter (statuses as of 11/15/2022) Resolved Problems Problem Noted Date Resolved Date [...] pain 01/24/2012 01/17/2017 Genetic Sleep Disorder Research Other*[id number] 05/13/2011 04/07/2016 Obstructive sleep apnea 01/18/2011 12/27/19 [...] as of this encounter (statuses as of 11/15/2022) Immunizations Name Administration Dates Next Due COVID-19 mRNA, LNP-s, No Pre serve, 2-Dose Series (Moderna) 01/05/2022,07/26/2021,12/21/2020,11/09 HEP A - Hepatitis A (Adult > 18 yrs) 09/24/2018, 03/26/2018 Hepatitis B, 20+ yrs 09/24/2018,04/23/2018,03/26 Pneumococcal Conjugate Vacc, 13 Valent (Prevnar) 05/02/2019 Pneumococcal Conjugate Vacci ne, 20-valent ([id number]) 10/21/2022 Pneumococcal Polysaccharide PPV23 (Pneumovax) 06/01/2010 Seasonal [...] Miscellaneous Notes * Telephone Encounter - THAD Gastelum - 11/15/2022 8:39 AM EST Patient scheduled for venofer 11/23 @ 2:00 pm ( did not realize he canceled an iron infusion yesterday- he thought it was only a doctors appointment or he wouldn't have cancelled it) * Telephone Encounter - Dinorah Teixeira LPN - 11/14/2022 11:26 AM EST Shaina's Syed called office and left message with no other information. Returned call to Shaina Lynch also on line. Frida will not be coming to Venofer infusion appointment today at 1pm. Asked Syed and Shaina when they would like to reschedule and Syed states he does not know at this time. Scheduling: - -Please contact patient to re-schedule Venofer on 503 schedule -Please cancel Venofer appointment on 503 schedule today at 1 pm, patient is not coming. documented in this encounter Plan of Treatment Upcoming Encounters Date Type Specialty Care Team Description 11/17/2022 Home Visit [facility] July Poe RN [address] [place] [address] 11/18/2022 Office Visit [facility] Medicine [facility] [address] [facility] [id number] 11/18/2022 Imaging Radiology 11/21/2022 Telemedicine [facility] Eleni Kelsey CRNP [address] [facility] [place] [address] Kaylee Khan, Community Health Substance Abuse Rn [address] [place] [address] 11/23/2022 Hem/Onc Treatment Hematology Oncology [place], Chair [address] Hem On[address] [place] [address] 11/28/2022 Pharmacy Pharmacy Pharmacist2, [facility] [address] [facility] [place] [address] 12/06/2022 Office Visit Gastroenterology Lyssa Stout CRNP [address] [place] [address] 12/08/2022 Home Visit [facility] Aleyda Campos PA-C [address] [place] [address] 12/08/2022 Office Visit Hematology Oncology Toon Sanchez MD 200 [place] [address] 02/10/2023 Office Visit Sleep Disorders Love Francisco DO [address] [place] [address] 03/01/2023 PulmDiagnostic Pulmonary Function [place], Pft [address] [place] [address] Scheduled Procedures Name Priority Associated Diagnoses Date/Ti [...] this encounter Medical Devices Implanted Type Area Awake Overnight Counselor Device Identifier Shelf Expiration Date Model / Serial / Lot Microtech Sure Clip Implanted:Qty: 2 on 06/03/2020 by Janis Hatch DO at OR [facility] Clip N/A: Colon 04/21/2022 [facility]-F-26-2 35-C-R / / [id number] documented as of this encounter Additional Health Concerns Infection Onset Date Last Indicated Resolved Time MRSA 09/17/2022 09/17/2022 documented as of this encounter Advance Directives Documents on File Type Date Recorded Patient Supervisor Insecticide Expl anation Advance Directives and Living Will 04/29/2021 ADVANCE DIRECTIVE / LIVING WILL LIVING WILL AND HEALTH CARE POA Power of Warp Tying Machine Tender 04/29/2021 POWER [facility] A [facility] [...] the patient have Health Care Power of Warp Tying Machine Tender? No Code Status History Code Status Date Activated Date Inactivated Comments Full Code 12/27/2021 2:50 PM 12/27/2021 8:02 PM This order reflects the patients wishes and were consensually agreed upon. Question Answer Comments Discussion of Advance Directives occurred with: Not Discussed Does the patient have a Living Will? No Does the patient have Health Care Power of Warp Tying Machine Tender? No Full Code 03/31/2021 8:57 PM 04/03/2021 [...] Agents on File Name Relationship Healthcare Agent [facility] p Communication Syed Bustos Spouse Emergency Contact Care Teams Business Support Specialist Relationship Specialty Start Date End Date Vanita Dunn MD [address] [place] [address] PCP - General Family Medicine 03/16/21 documented as of this encounter
--- OUTSIDE RECORDS SUMMARY | 2023-05-10 17:09 | External Medical Summary | Summary of Care ---
Author Name Unknown Organization [facility] Address [address] [facility] [address] Phone [phone] Care Team Providers Care Space And Missile Operations Name Role Phone Vanita Dunn MD Primary Care Provid er Reason for Visit * Reason Comments Mortgage Operations Manager Documentation Encounter Details Date Type Department Care Team Description 11/18/2022 Mortgage Operations Manager [facility] [place] [address] [place] [address] Preethi Rivera, DIESEL TRACTOR OPERATOR [address] [place] [address] Allergies Active Allergy Reactions Severity Noted Date Comments Adhesive Tape Itching 04/29/2020 Penicillins Rash 02/12/2008 Penicillin G 07/20/2018 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 documented as of this encounter (statuses as of 11/18/2022) Medications Medication Sig Dispensed Refills Start Date End Date Status nystatin (NYSTOP) 850740 UNIT/GM powder Apply topically to affected area 3 times a day. 60 g 1 10/16/2019 Active Dexcom G6 Gamma Facilities Operator Device Use as directed. To test blood sugars 4 times a day Dx E11.9 1 Each 0 09/14/2020 Active Dexcom G6 Transmitter Use as directed. To test blood sugars 4 times a day. Change every 90 days. Dx E11.9 1 Each 3 09/14/2020 Active OneTouch Verio In Vitro Strip (Glucose Blood) TESTING once daily 100 Strip 3 10/29/2020 Active OneTouch Delica Plus [id number] TESTING once daily 100 Each 3 10/29/2020 [...] oxyCODONE HCl 5 MG Oral Tablet (Oxy IR)Indications:Decorator Lighting Fixtures kai pain syndrome Take 1 Tablet by [...] as of this encounter (statuses as of 11/18/2022) Active Problems Problem Noted Date Aspiration pneumonia [...] as of this encounter (statuses as of 11/18/2022) Resolved Problems Problem Noted Date Resolved Date [...] pain 01/24/2012 01/17/2017 Genetic Sleep Disorder Research Other*[id number] 05/13/2011 04/07/2016 Obstructive sleep apnea 01/18/2011 12/27/19 [...] as of this encounter (statuses as of 11/18/2022) Immunizations Name Administration Dates Next Due COVID-19 mRNA, LNP-s, No Pre serve, 2-Dose Series (Moderna) 01/05/2022,07/26/2021,12/21/2020,11/09 HEP A - Hepatitis A (Adult > 18 yrs) 09/24/2018, 03/26/2018 Hepatitis B, 20+ yrs 09/24/2018,04/23/2018,03/26 Pneumococcal Conjugate Vacc, 13 Valent (Prevnar) 05/02/2019 Pneumococcal Conjugate Vacci ne, 20-valent ([id number]) 10/21/2022 Pneumococcal Polysaccharide PPV23 (Pneumovax) 06/01/2010 Seasonal [...] as of this encounter Progress Notes * CHRISSY Velázquez - 11/18/2022 1:13 PM EST This worker placed follow up to Shaina at [phone]. Spoke to pt's spouse, Syed. Syed reportsthat Shaina's aide is present and caregiver hours are M-F from 9-5 pm. Seyd reported that at this time he has no other concerns or questions for this worker. Reviewed upcoming appointment on asscheduled, time given to Syed. Patient's spouse, Syed offered no other complaints or concerns at this time. Fall precautions were stressed. No falls were recently reported. Emotional Support was offered. Patient's spouse, Syed was encouraged to contact the [facility] Team with any questions orconcerns . Phone number for [facility] was provided . Worker provided contact number [phone]. CHRISSY Velázquez Terra Cotta Mold Maker [facility] documented in this encounter Plan of Treatment Upcoming Encounters Date Type Specialty Care Team Description 11/21/2022 Telemedicine [facility] Eleni Kelsey CRNP [address] [facility] [place] [address] Kaylee Khan, Community Health Wheel Worker [address] [facility] [place] [address] 11/23/2022 Hem/Onc Treatment Hematology Oncology [place], Chair 11 Hem Onc [address] [facility] [address] 11/25/2022 Office Visit Family Medicine MayMemo MD [address] [place] [address] 11/28/2022 Pharmacy Pharmacy Pharmacist2, [facility] 200 [place] [address] 12/06/2022 Office Visit Gastroenterology Lyssa Stout CRNP [address] [place] [address] 12/08/2022 Home Visit [facility] Aleyda Campos PA-C [address] [place] [address] 12/08/2022 Office Visit Hematology Oncology Tono Sanchez MD 200 [facility] [place] [address] 02/10/2023 Office Visit Sleep Disorders Love Francisco, [address] [place] [address] 03/01/2023 PulmDiagnostic Pulmonary Function [place], Pft [address] [place] [address] Scheduled Procedures Name Priority Associated Diagnoses Date/Ti [...] this encounter Medical Devices Implanted Type Area Healthcare Social Worker Device Identifier Shelf Expiration Date Model / Serial / Lot Microtech Sure Clip Implanted:Qty: 2 on 06/03/2020 by Janis Hatch DO at OR [facility] Clip N/A: Colon 04/21/2022 [facility]-F-26-2 35-C-R / / [id number] documented as of this encounter Advance Directives Documents on File Type Date Recorded Patient 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 No Code Status History Code Status Date Activated Date Inactivated Comments Full Code 12/27/2021 2:50 PM 12/27/2021 8:02 PM This order reflects the patients wishes and were consensually agreed upon. Question Answer Comments Discussion of Advance Directives occurred with: Not Discussed Does the patient have a Living Will? No Does the patient have Health Care Power of District Customs Director? No Full Code 03/31/2021 8:57 PM [...] Syed Bustos Spouse Emergency Contact Care Teams Space And Missile Operations Relationship Specialty Start Date End Date Vanita Dunn MD [address] [place] [address] PCP - General Family Medicine 03/16/21 documented as of this encounter
--- OUTSIDE RECORDS SUMMARY | 2023-05-10 17:09 | External Medical Summary | Summary of Care ---
Author Name Unknown Organization [facility] Address [address] [facility] [place] [address] Phone [phone] Care Team Providers Care Charging Board Operator Name Role Phone Vanita Dunn MD Primary Care Provid er Reason for Visit * Reason Comments [facility]: Maintenance Encounter Details Date Type Department Care Team Description 11/17/2022 Home Visit [facility], [facility] [address] [facility] [place] [address] July Poe, RN 132 [place] [address] Allergies Active Allergy Reactions Severity Noted Date Comments Adhesive Tape Itching 04/29/2020 Penicillins Rash 02/12/2008 Penicillin G 07/20/2018 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 documented as of this encounter (statuses as of 11/18/2022) Medications Medication Sig Dispensed Refills Start Date End Date Status nystatin (NYSTOP) 779634 UNIT/GM powder Apply topically to affected area 3 times a day. 60 g 1 10/16/2019 Active Dexcom G6 Tire Stripper Device Use as directed. To test blood sugars 4 times a day Dx E11.9 1 Each 0 09/14/2020 Active Dexcom G6 Transmitter Use as directed. To test blood sugars 4 times a day. Change every 90 days. Dx E11.9 1 Each 3 09/14/2020 Active OneTouch Verio In Vitro Strip (Glucose Blood) TESTING once daily 100 Strip 3 10/29/2020 Active OneTouch Delica Plus [id number] TESTING once daily 100 Each 3 10/29/2020 [...] oxyCODONE HCl 5 MG Oral Tablet (Oxy IR)Indications:Bull Driver kai pain syndrome Take 1 Tablet by [...] current situation. 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 if a watermaster plan is made -continue lexapro Generalized weakness [...] pain 01/24/2012 01/17/2017 Genetic Sleep Disorder Research Other*[id number] 05/13/2011 04/07/2016 Obstructive sleep apnea 01/18/2011 12/27/19 [...] (Prevnar) 05/02/2019 Pneumococcal Conjugate Vacci ne, 20-valent ([id number]) 10/21/2022 Pneumococcal Polysaccharide PPV23 (Pneumovax) 06/01/2010 Seasonal [...] Reading Time Taken Comments Blood Pressure 102/62 11/17/2022 3:53 PM EST Pulse 62 11/17/2022 3:53 PM EST Temperature 35.9 C (96.7 F) 11/17/2022 3:53 PM ES T Respiratory Rate 18 11/17/2022 3:53 PM EST Oxygen Saturation 94% 11/17/2022 3:53 PM EST Inhaled Oxygen Concentration - - [...] Progress Notes * July Poe RN - 11/17/2022 7:37 AM EST [facility] Setter BALDOMERO Visit Date: 11/17/2022 Time: 8:37 AM Name: Shaina Bustos : 1955 Current Concerns: Pt seen for BALDOMERO #3 Admitted to [facility] 10/28 - 10/29/22 for SOB, possible UTI Discharged home on Bactrim DS - has completed course No pain No falls Reports bowels moved twice yesterday Lungs clear Has 1cm x 2cm stage 2 of right buttock fold - apply silver sulfate cream as previously ordered Still has no cg -has contacted [facility] food service hotel runner and requested they try another agency as [facility]harmesh medication manager has no one to send or when they do the cg does not show up Physical Exam: BP 102/62 | Pulse 62 | Temp 35.9 C (96.7 F) | Resp 18 | SpO2 94% Pain 0 Physical Exam Constitutional: General: She [...] HENT: Negative. Eyes: Negative. Respiratory: Positive for shortness of breath (at baseline). Cardiovascular: Positive for leg swelling. Gastrointestinal: Negative. Endocrine: Negative. Genitourinary: Negative. Musculoskeletal: Positive for gait problem (non-ambulatory). Skin: Positive for wound (1cm x 2cm stage 2 of right buttock fold). Hematological: Negative. Psychiatric/Behavioral: Negative. Medication Reconciliation: (See medication list) Does patient take medications as ordered: Yes Patient Well Being: PHQ2/9: No questionnaires available. No change in living situation No falls - svetlana lift for transfers [facility]-10 Completed this Visit: No. Routine visit and No falls since last visit Advanced Care Planning: No documentation, ACP on file. Patient's Goals of Care: 1. Remain in home 2. Get a middle school director cg 3. Get out more Reinforcement/Education: DIABETES: [...] hrs each day Svetlana lift for transfers F/Uwith gyne F/U with heme/onc Be sure to take lactulose to haveat least2 bowel movements per day May take Miralax daily if no bm within 24 hrs Home Interventions Provided: Home Intervention: Other; Eval Reinforced current Plan of Care, including self-management and medication regimen Patient's 'Red Flags': 1. Increased cough with yellow/green sputum 2. Change in mental status, confusion 3. No BM in 24 hrs Patient Needs to Remember: Call [facility] at with any new or worsening health concerns or problems, red flag symptoms. Referrals Needed: Other none Follow Up: Is there cellular connectivity/connectivity in the home? Yes Does the patient have internet in the home? Yes Patient encouraged to call the intake phone number for all urgent but not emergent issues. Is the patient new to [facility] within the last 30 days? No, Assess appropriateness for upcoming telehealth visits. Cancel telehealth visits & schedule home visit with care steam locomotive firer/fireman(s)as indicated. Provider is in agreement with Plan of Care: Yes Scheduled to follow up with patient in 4 days with provider. July Poe RN 11/17/2022 8:37 AM documented in this encounter Plan of Treatment Upcoming Encounters Date Type Specialty Care Team Description 11/21/2022 Telemedicine [facility] Eleni Kelsey CRNP [address] [facility] [place] [address] Kaylee Khan, Community Health Brazer Resistance [address] [place] [address] 11/23/2022 Hem/Onc Treatment Hematology Oncology [place], Chair [address] [facility] [address] [place] [address] 11/25/2022 Office Visit Family Medicine Memo Snider MD [address] [place] [address] 11/28/2022 Pharmacy Pharmacy Pharmacist2, [facility] 200 [place] [address] 12/06/2022 Office Visit Gastroenterology Lyssa Stout CRNP [address] [place] [address] 12/08/2022 Home Visit [facility] Aleyda Campos PA-C [address] [place] [address] 12/08/2022 Office Visit Hematology Oncology Tono Sanchez MD 200 [facility], [place] [address] 02/10/2023 Office Visit Sleep Disorders Love Francisco DO [address] [place] [address] 03/01/2023 PulmDiagnostic Pulmonary Function [place], Pft [address] [place] [address] Scheduled Procedures Name Priority Associated Diagnoses Date/Ti [...] this encounter Medical Devices Implanted Type Area Nurse Substance Abuse Device Identifier Shelf Expiration Date Model / Serial / Lot Microtech Sure Clip Implanted:Qty: 2 on 06/03/2020 by Janis Hatch DO at OR [facility] Clip N/A: Colon 04/21/2022 [facility]-F-26-2 35-C-R / / [id number] documented as of this encounter Advance Directives Documents on File Type Date Recorded Patient 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 No Code Status History Code Status Date Activated Date Inactivated Comments Full Code 12/27/2021 2:50 PM 12/27/2021 8:02 PM This order reflects the patients wishes and were consensually agreed upon. Question Answer Comments Discussion of Advance Directives occurred with: Not Discussed Does the patient have a Living Will? No Does the patient have Health Care Power of Safety Aide? No Full Code 03/31/2021 8:57 PM 04/03/2021 [...] Agents on File Name Relationship Healthcare Agent [facility] p Communication Syed Bustos Spouse Emergency Contact Care Teams Charging Board Operator Relationship Specialty Start Date End Date Vanita Dunn MD [address] [place] [address] PCP - General Family Medicine 03/16/21 documented as of this encounter
--- OUTSIDE RECORDS SUMMARY | 2023-05-10 17:10 | External Medical Summary | Summary of Care ---
Author Name Unknown Organization [facility] Address [address] [facility] [place] [address] Phone [phone] Care Team Providers Care Engineer Fishing Vessel Name Role Phone Kojo Dunn MD Primary Care Provid er Reason for Visit * Reason Onset Date Comments Order Request 11/09/2022 mammogram Encounter Details Date Type Department Care Team Description 11/09/2022 Telephone [facility] [address] [place] [address] Kojo Dunn MD [address] [place] [address] Order Request (mammogram) Allergies Active Allergy Reactions Severity Noted Date Comments Adhesive Tape Itching 04/29/2020 Penicillins Rash 02/12/2008 Penicillin G 07/20/2018 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 documented as of this encounter (statuses as of 11/10/2022) Medications Medication Sig Dispensed Refills Start Date End Date Status nystatin (NYSTOP) 925071 UNIT/GM powder Apply topically to affected area 3 times a day. 60 g 1 10/16/2019 Active Dexcom G6 Safety Net Maker Device Use as directed. To test blood sugars 4 times a day Dx E11.9 1 Each 0 09/14/2020 Active Dexcom G6 Transmitter Use as directed. To test blood sugars 4 times a day. Change every 90 days. Dx E11.9 1 Each 3 09/14/2020 Active OneTouch Verio In Vitro Strip (Glucose Blood) TESTING once daily 100 Strip 3 10/29/2020 Active OneTouch Delica Plus [id number] TESTING once daily 100 Each 3 10/29/2020 [...] ONCE DAILY 30 Tablet 8 03/12/2022 Active Oxybutynin Chloride 5 MG Oral Tablet (Ditropan) TAKE 1 TABLET BY MOUTH TWICE DAILY 180 Tablet 1 04/10/2022 Active Spironolactone 25 MG Oral Tablet (Aldactone) [...] A MEAL 90 Tablet 1 07/29/2022 Active Gabapentin 300 MG Oral Capsule (Neurontin)Indicati ons:DM type 2 with diabetic peripheral neuropathy (HCC),Diabetic foot (HCC) TAKE 1 CAPSULE BY MOUTH EVERY MORNING, 1 CAPSULE MIDDAY, AND 2 CAPSULES IN THE EVENING, MAY TAKE AN EXTRA DOSE IN THE MORNING AND MIDDAY IF NEEDED FOR PAIN MAX DAILY AMOUNT: 6 CAPSULES 360 Capsule 0 07/29/2022 Active Isosorbide Mononitrate ER 30 MG [...] oxyCODONE HCl 5 MG Oral Tablet (Oxy IR)Indications:Adult Protective Caseworker kai pain syndrome Take 1 Tablet by mouth every 6 hours as needed for Pain, Moderate or Pain, Severe. 30 Tablet 0 10/18/2022 Active Lactulose 10 GM/15ML Oral Solution (Constulose) TAKE 30G (45ML) BY MOUTH 3 TIMES DAILY 1200 mL 0 10/28/2022 Active Hospital, Clinic, or Other Facility Administered [...] as of this encounter (statuses as of 11/10/2022) Active Problems Problem Noted Date Aspiration pneumonia [...] as of this encounter (statuses as of 11/10/2022) Resolved Problems Problem Noted Date Resolved Date [...] pain 01/24/2012 01/17/2017 Genetic Sleep Disorder Research Other*[id number] 05/13/2011 04/07/2016 Obstructive sleep apnea 01/18/2011 12/27/19 [...] as of this encounter (statuses as of 11/10/2022) Immunizations Name Administration Dates Next Due COVID-19 mRNA, LNP-s, No Pre serve, 2-Dose Series (Moderna) 01/05/2022,07/26/2021,12/21/2020,11/09 HEP A - Hepatitis A (Adult > 18 yrs) 09/24/2018, 03/26/2018 Hepatitis B, 20+ yrs 09/24/2018,04/23/2018,03/26 Pneumococcal Conjugate Vacc, 13 Valent (Prevnar) 05/02/2019 Pneumococcal Conjugate Vacci ne, 20-valent ([id number]) 10/21/2022 Pneumococcal Polysaccharide PPV23 (Pneumovax) 06/01/2010 Seasonal [...] encounter Miscellaneous Notes * Addendum Note - Kojo Dunn MD - 11/10/2022 11:08 AM ESTAddended by: KOJO DUNN on: 11/10/2022 11:08 AM Modules accepted: Orders * Addendum Note - Katie Vegas LPN - 11/09/2022 1:43 PM ESTAddended by: KATIE VEGAS on: 11/09/2022 01:43 PM Modules accepted: Orders * Telephone Encounter - THAD Cole - 11/09/2022 7:25 AM EST Shaina needs an order placed for her upcoming screening mammogram appointment. Thank you! documented in this encounter Plan of Treatment Upcoming Encounters Date Type Specialty Care Team Description 11/14/2022 Hem/Onc Treatment Hematology Oncology Park, Chair 6 Hem Onc [facility] [address] [facility] [place] [address] 11/14/2022 Office Visit Pharmacy Pharmacist2, [facility] [address] [facility] [place] [address] 11/15/2022 Office Visit Family Medicine Kojo Dunn MD [address] [place], [place] [address] [address] 11/17/2022 Home Visit [facility] July Poe RN 132 [facility] [place] [address] 11/18/2022 Imaging Radiology 11/21/2022 Telemedicine [facility] Eleni Kelsey CRNP [address] [facility] [place] [address] Kaylee Khan, Community Health Trial Manager [address] [place] [address] 12/06/2022 Office Visit Gastroenterology Lyssa Stout CRNP [address] [place] [address] 12/08/2022 Home Visit [facility] Aleyda Campos PA-C [address] [place] [address] 12/08/2022 Office Visit Hematology Oncology Tono Sanchez MD 200 [place] [place] [address] 02/10/2023 Office Visit Sleep Disorders Love Francisco, [address] [facility] [place] [address] 03/01/2023 PulmDiagnostic Pulmonary Function West, Pft [address] [facility] [place] [address] Scheduled Orders Name Type Priority Associated Diagnoses Orde r Schedule MAMMOGRAM SCREENING BILATERAL Medical Imaging Routine Screening mammogram for breast cancer Expected: 11/10/2022, Expires: 12/11/2023 Scheduled Procedures Name Priority Associated Diagnoses Date/Ti [...] this encounter Medical Devices Implanted Type Area Embossing Machine Operator Device Identifier Shelf Expiration Date Model / Serial / Lot Microtech Sure Clip Implanted:Qty: 2 on 06/03/2020 by Janis Hatch DO at OR [facility] Clip N/A: Colon 04/21/2022 [facility]-F-26-2 35-C-R / / [id number] documented as of this encounter Visit Diagnoses Diagnosis Screening mammogram for breast cancer- Primary documented in this encounter Additional Health Concerns Infection Onset Date Last Indicated Resolved Time MRSA 09/17/2022 09/17/2022 documented as of this encounter Advance Directives Documents on File Type Date Recorded 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 No Code Status History Code Status Date Activated Date Inactivated Comments Full Code 12/27/2021 2:50 PM 12/27/2021 8:02 PM This order reflects the patients wishes and were consensually agreed upon. Question Answer Comments Discussion of Advance Directives occurred with: Not Discussed Does the patient have a Living Will? No Does the patient have Health Care Power of Lawn Care Professional? No Full Code 03/31/2021 8:57 PM [...] Agents on File Name Relationship Healthcare Agent [facility] p Communication Syed Bustos Spouse Emergency Contact Care Teams Engineer Fishing Vessel Relationship Specialty Start Date End Date Kojo Dunn MD [address] [place] [address] PCP - General Family Medicine 03/16/21 documented as of this encounter
--- OUTSIDE RECORDS SUMMARY | 2023-05-10 17:10 | External Medical Summary | Summary of Care ---
Author Name Unknown Organization [facility] Address [address] [facility] [place] [address] Phone [phone] Care Team Providers Care Chief Hospital Administrator Name Role Phone Vanita Dunn MD Primary Care Provid er Reason for Visit * Reason Onset Date Comments Order Request 11/09/2022 mammogram Encounter Details Date Type Department Care Team Description 11/09/2022 Telephone [facility] [address] [place] [address] Vanita Dunn MD [address] [place] [address] Order Request (mammogram) Allergies Active Allergy Reactions Severity Noted Date Comments Adhesive Tape Itching 04/29/2020 Penicillins Rash 02/12/2008 Penicillin G 07/20/2018 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 documented as of this encounter (statuses as of 11/09/2022) Medications Medication Sig Dispensed Refills Start Date End Date Status nystatin (NYSTOP) 225765 UNIT/GM powder Apply topically to affected area 3 times a day. 60 g 1 10/16/2019 Active Dexcom G6 Mobile Application Architect Device Use as directed. To test blood sugars 4 times a day Dx E11.9 1 Each 0 09/14/2020 Active Dexcom G6 Transmitter Use as directed. To test blood sugars 4 times a day. Change every 90 days. Dx E11.9 1 Each 3 09/14/2020 Active OneTouch Verio In Vitro Strip (Glucose Blood) TESTING once daily 100 Strip 3 10/29/2020 Active OneTouch Delica Plus [id number] TESTING once daily 100 Each 3 10/29/2020 [...] oxyCODONE HCl 5 MG Oral Tablet (Oxy IR)Indications:Switch Engineer kai pain syndrome Take 1 Tablet by [...] as of this encounter (statuses as of 11/09/2022) Active Problems Problem Noted Date Aspiration pneumonia [...] as of this encounter (statuses as of 11/09/2022) Resolved Problems Problem Noted Date Resolved Date [...] pain 01/24/2012 01/17/2017 Genetic Sleep Disorder Research Other*[id number] 05/13/2011 04/07/2016 Obstructive sleep apnea 01/18/2011 12/27/19 [...] as of this encounter (statuses as of 11/09/2022) Immunizations Name Administration Dates Next Due COVID-19 mRNA, LNP-s, No Pre serve, 2-Dose Series (Moderna) 01/05/2022,07/26/2021,12/21/2020,11/09 HEP A - Hepatitis A (Adult > 18 yrs) 09/24/2018, 03/26/2018 Hepatitis B, 20+ yrs 09/24/2018,04/23/2018,03/26 Pneumococcal Conjugate Vacc, 13 Valent (Prevnar) 05/02/2019 Pneumococcal Conjugate Vacci ne, 20-valent ([id number]) 10/21/2022 Pneumococcal Polysaccharide PPV23 (Pneumovax) 06/01/2010 Seasonal [...] encounter Miscellaneous Notes * Addendum Note - Katie Vegas LPN [...] Park, Chair 6 Hem Onc Scenery [address] [facility] [place] [address] 11/14/2022 Office Visit Pharmacy Pharmacist2, [facility] Sp 200 [place] [address] 11/15/2022 Office Visit Family Medicine Vanita Dunn MD [address] [place] [address] 11/17/2022 Home Visit [facility] July Poe, RN 132 [facility] [place] [address] 11/18/2022 Imaging Radiology 11/21/2022 Telemedicine [facility] Eleni Kelsey CRNP [address] [facility] [place] [address] Kaylee Khan, Community Health Computer Network Support Specialist [address] [place] [address] 12/06/2022 Office Visit Gastroenterology Lyssa Stout CRNP 132 [facility] [place] [address] 12/08/2022 Home Visit [facility] Aleyda Campos PA-C [address] [facility] [place] [address] 12/08/2022 Office Visit Hematology Oncology Tono Sanchez MD [address] [place] [address] 02/10/2023 Office Visit Sleep Disorders Love Francisco DO [address] [facility] [place] [address] 03/01/2023 PulmDiagnostic Pulmonary Function West, Pft [address] [facility] [place] [address] Scheduled Procedures Name Priority Associated Diagnoses Date/Ti [...] encounter Medical Devices Implanted Type Area Machine Joiner Cementer Device Identifier Shelf Expiration Date Model / Serial / Lot Microtech Sure Clip Implanted:Qty: 2 on 06/03/2020 by Janis Hatch DO at OR [facility] Clip N/A: Colon 04/21/2022 [facility]-F-26-2 35-C-R / / [id number] documented as of this encounter Additional Health Concerns Infection Onset Date Last Indicated Resolved Time MRSA 09/17/2022 09/17/2022 documented as of this encounter Advance Directives Documents on File Type Date Recorded 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 No Code Status History Code Status Date Activated Date Inactivated Comments Full Code 12/27/2021 2:50 PM 12/27/2021 8:02 PM This order reflects the patients wishes and were consensually agreed upon. Question Answer Comments Discussion of Advance Directives occurred with: Not Discussed Does the patient have a Living Will? No Does the patient have Health Care Power of Biological Technical Officer? No Full Code 03/31/2021 8:57 PM [...] Agents on File Name Relationship Healthcare Agent [facility] p Communication Syed Bustos Spouse Emergency Contact Care Teams Chief Hospital Administrator Relationship Specialty Start Date End Date Vanita Dunn MD [address] [place] [address] PCP - General Family Medicine 03/16/21 documented as of this encounter
--- OUTSIDE RECORDS SUMMARY | 2023-05-10 17:10 | External Medical Summary | Summary of Care ---
Author Name Unknown Organization [facility] Address [address] [facility] [place] [address] Phone [phone] Care Team Providers Care Technician Assistant Name Role Phone Vanita Dunn MD Primary Care Provid er Reason for Visit * Reason Onset Date Comments [facility]: Maintenance 11/02/2022 Encounter Details Date Type Department Care Team Description 11/02/2022 Telephone [facility], [facility] [place] [address] July Poe, RN 132 [place] [address] [facility]: Maintenance Allergies Active Allergy Reactions Severity Noted Date Comments Adhesive Tape Itching 04/29/2020 Penicillins Rash 02/12/2008 Penicillin G 07/20/2018 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 documented as of this encounter (statuses as of 11/14/2022) Medications Medication Sig Dispensed Refills Start Date End Date Status nystatin (NYSTOP) 235761 UNIT/GM powder Apply topically to affected area 3 times a day. 60 g 1 10/16/2019 Active Dexcom G6 Mechanical Assembly Device Use as directed. To test blood sugars 4 times a day Dx E11.9 1 Each 0 09/14/2020 Active Dexcom G6 Transmitter Use as directed. To test blood sugars 4 times a day. Change every 90 days. Dx E11.9 1 Each 3 09/14/2020 Active OneTouch Verio In Vitro Strip (Glucose Blood) TESTING once daily 100 Strip 3 10/29/2020 Active OneTouch Delica Plus [id number] TESTING once daily 100 Each 3 10/29/2020 [...] oxyCODONE HCl 5 MG Oral Tablet (Oxy IR)Indications:Mycology Teacher kai pain syndrome Take 1 Tablet [...] pain 01/24/2012 01/17/2017 Genetic Sleep Disorder Research Other*[id number] 05/13/2011 04/07/2016 Obstructive sleep apnea 01/18/2011 12/27/19 [...] (Prevnar) 05/02/2019 Pneumococcal Conjugate Vacci ne, 20-valent ([id number]) 10/21/2022 Pneumococcal Polysaccharide PPV23 (Pneumovax) 06/01/2010 Seasonal [...] Telephone Encounter - July Poe RN - 11/02/2022 12:45 PM EST Hi Preethi, There has been difficulty getting Shaina a cg back in the home. There was talk about getting an aidefrom [place] talent acquisition relationship manager. Could you please follow up on the progress of this? I see she has a [facility] Waiver service coordinatorinvolved but I have not heard anything further. Could you please check into this? She definitely needs help in the home. Thank you! documented in this encounter Plan of Treatment Upcoming Encounters Date Type Specialty Care Team Description 11/14/2022 Hem/Onc Treatment Hematology Oncology [place], Chair 6 Hem Onc Scenery [address] [place] [address] 11/14/2022 Office Visit Pharmacy Pharmacist2, [facility] Sp [address] [place] [address] 11/15/2022 Office Visit Family Medicine Vanita Dunn MD [address] [place] [address] 11/17/2022 Home Visit [facility] July Poe RN 132 [place] [address] 11/18/2022 Imaging Radiology 11/21/2022 Telemedicine [facility] Eleni Kelsey CRNP [address] [place] [facility] [place] [address] Kaylee Khan, Community Health Golf Course Ranger [address] [place] [address] 12/06/2022 Office Visit Gastroenterology Lyssa Stout CRNP 132 [place] [address] 12/08/2022 Home Visit [facility] Aleyda Campos PA-C 132 [place] [address] 12/08/2022 Office Visit Hematology Oncology Tono Sanchez MD 200 [place] [address] 02/10/2023 Office Visit Sleep Disorders Love Francisco, DO [address] [place] [address] 03/01/2023 PulmDiagnostic Pulmonary Function West, Pft [address] [place] [address] Scheduled Procedures Name Priority Associated Diagnoses Date/Ti [...] this encounter Medical Devices Implanted Type Area Stereotyper Device Identifier Shelf Expiration Date Model / Serial / Lot Microtech Sure Clip Implanted:Qty: 2 on 06/03/2020 by Janis Hatch DO at OR [facility] Clip N/A: Colon 04/21/2022 [facility]-F-26-2 35-C-R / / [id number] documented as of this encounter Additional Health Concerns Infection Onset Date Last Indicated Resolved Time MRSA 09/17/2022 09/17/2022 documented as of this encounter Advance Directives Documents on File Type Date Recorded Patient Carding Doubler Expl anation Advance Directives and Living Will 04/29/2021 ADVANCE DIRECTIVE / LIVING WILL LIVING WILL AND HEALTH CARE POA Power of Director Of Global Sales 04/29/2021 POWER OF A TTORNEY HEALTH CARE [...] have Health Care Power of Director Of Global Sales? No Code Status History Code Status Date Activated Date Inactivated Comments Full Code 12/27/2021 2:50 PM 12/27/2021 8:02 PM This order reflects the patients wishes and were consensually agreed upon. Question Answer Comments Discussion of Advance Directives occurred with: Not Discussed Does the patient have a Living Will? No Does the patient have Health Care Power of Director Of Global Sales? No Full Code 03/31/2021 8:57 PM 04/03/2021 [...] on File Name Relationship Healthcare Agent [facility] p Communication Syed Bustos Spouse Emergency Contact Care Teams Technician Assistant Relationship Specialty Start Date End Date Vanita Dunn MD [address] [place] [address] PCP - General Family Medicine 03/16/21 documented as of this encounter
--- OUTSIDE RECORDS SUMMARY | 2023-05-10 17:11 | External Medical Summary | Summary of Care ---
Author Name Unknown Organization [facility] Address [address] [facility] [place] [address] Phone [phone] Care Team Providers Care Heading Machine Operator Name Role Phone Vanita Dunn MD Primary Care Provid er Reason for Visit * Reason Onset Date Comments Order Request 11/09/2022 mammogram Encounter Details Date Type Department Care Team Description 11/09/2022 Telephone [facility] [address] [place] [address] Vanita Dunn MD [address] [place] [address] Order Request (mammogram) Allergies Active Allergy Reactions Severity Noted Date Comments Adhesive Tape Itching 04/29/2020 Penicillins Rash 02/12/2008 Penicillin G 07/20/2018 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 documented as of this encounter (statuses as of 11/09/2022) Medications Medication Sig Dispensed Refills Start Date End Date Status nystatin (NYSTOP) 446685 UNIT/GM powder Apply topically to affected area 3 times a day. 60 g 1 10/16/2019 Active Dexcom G6 Voip Network Engineer Device Use as directed. To test blood sugars 4 times a day Dx E11.9 1 Each 0 09/14/2020 Active Dexcom G6 Transmitter Use as directed. To test blood sugars 4 times a day. Change every 90 days. 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 Thank you! documented in this encounter Plan of Treatment Upcoming Encounters Date Type Specialty Care Team Description 11/09/2022 Home Visit [facility] July Poe RN 132 [place] [address] 11/14/2022 Hem/Onc Treatment Hematology Oncology [place], Chair 6 Hem Onc Scenery [address] [place] [address] 11/14/2022 Office Visit Pharmacy Pharmacist2, [facility] Sp [address] [place] [address] 11/15/2022 Office Visit Family Medicine Vanita Dunn MD [address] [place] [address] 11/18/2022 Imaging Radiology 11/21/2022 Telemedicine [facility]sey [facility] [address] [facility] [address] Kaylee Khan, Community Health Supplier Development Manager [address] [place] [address] 12/06/2022 Office Visit Gastroenterology Lyssa Stout CRNP [address] [place] [address] 12/08/2022 Home Visit [facility] Aleyda Campos PA-C 132 [facility] [place] [address] 12/08/2022 Office Visit Hematology Oncology Tono Sanchez MD [address] [place] [address] 02/10/2023 Office Visit Sleep Disorders Love Francisco, DO 132 [facility] [place] [address] 03/01/2023 PulmDiagnostic Pulmonary Function West, Pft [address] [place] [address] Scheduled Procedures Name Priority Associated Diagnoses Date/Ti [...] this encounter Medical Devices Implanted Type Area Admissions Clerk Device Identifier Shelf Expiration Date Model / Serial / Lot Microtech Sure Clip Implanted:Qty: 2 on 06/03/2020 by Janis Hatch DO at OR [facility] Clip N/A: Colon 04/21/2022 [facility]-F-26-2 35-C-R / / [id number] documented as of this encounter Additional Health Concerns Infection Onset Date Last Indicated Resolved Time MRSA 09/17/2022 09/17/2022 documented as of this encounter Advance Directives Documents on File Type Date Recorded 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 No Code Status History Code Status Date Activated Date Inactivated Comments Full Code 12/27/2021 2:50 PM 12/27/2021 8:02 PM This order reflects the patients wishes and were consensually agreed upon. Question Answer Comments Discussion of Advance Directives occurred with: Not Discussed Does the patient have a Living Will? No Does the patient have Health Care Power of Management Retail Intern? No Full Code 03/31/2021 8:57 PM 04/03/2021 [...] Syed Bustos Spouse Emergency Contact Care Teams Heading Machine Operator Relationship Specialty Start Date End Date Vanita Dunn MD [address] [place] [address] PCP - General Family Medicine 03/16/21 documented as of this encounter
--- OUTSIDE RECORDS SUMMARY | 2023-05-10 17:11 | External Medical Summary | Summary of Care ---
Author Name Unknown Organization [place] [address] Care Team Providers Care Cartography Professor Name Role Phone Vanita Dunn MD Primary Care Provid er Reason for Visit * Reason Onset Date Comments Abnormal Test Results 11/06/2022 Encounter Details Date Type Department Care Team Description 11/06/2022 Telephone [facility], [facility] [address] [place] [address] [facility] [address] [facility] [place] [address] Abnormal Test Results Allergies Active Allergy Reactions Severity Noted Date Comments Adhesive Tape Itching 04/29/2020 Penicillins Rash 02/12/2008 Penicillin G 07/20/2018 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 documented as of this encounter (statuses as of 11/07/2022) Medications Medication Sig Dispensed Refills Start Date End Date Status nystatin (NYSTOP) 637451 UNIT/GM powder Apply topically to affected area 3 times a day. 60 g 1 10/16/2019 Active Dexcom G6 Day Habilitation Supervisor Device Use as directed. To test blood sugars 4 times a day Dx E11.9 1 Each 0 09/14/2020 Active Dexcom G6 Transmitter Use as directed. To test blood sugars 4 times a day. Change every 90 days. Dx E11.9 1 Each 3 09/14/2020 Active OneTouch Verio In Vitro Strip (Glucose Blood) TESTING once daily 100 Strip 3 10/29/2020 Active OneTouch Delica Plus [id number] TESTING once daily 100 Each 3 10/29/2020 [...] [facility]) 35 Units at breakfast, 39 Units [...] 8.0% ([facility]) Inject 27 units subcutaneously at bedtime [...] oxyCODONE HCl 5 MG Oral Tablet (Oxy IR)Indications:Fraud Analyst kai pain syndrome Take 1 Tablet by [...] as of this encounter (statuses as of 11/07/2022) Active Problems Problem Noted Date Aspiration pneumonia [...] peripheral neuro heather 04/04/2019 Primary insomnia 04/04/2019 Recurrent major depressive disorder, in partial remission 04/04/2019 Last Assessment & Plan: Seems very depressed about current situation. 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 if a long-term plan is made -continue lexapro Impaired mobility and ADLs 04/04/2019 Wheelchair dependent [...] as of this encounter (statuses as of 11/07/2022) Resolved Problems Problem Noted Date Resolved Date [...] 05/05/2020 Sprain of right ankle 04/04/2019 05/05/2020 Generalized weakness 04/04/2019 09/13/2021 Preop examination 02/21/2019 [...] 05/02/2012 09/13/2021 Diverticulosis of colon 05/02/2012 02/14/20 Internal hemorrhoids 04/12/2012 07/02/2014 Migraine variant, intractable [...] pain 01/24/2012 01/17/2017 Genetic Sleep Disorder Research Other*[id number] 05/13/2011 04/07/2016 Obstructive sleep apnea 01/18/2011 12/27/19 [...] as of this encounter (statuses as of 11/07/2022) Immunizations Name Administration Dates Next Due COVID-19 mRNA, LNP-s, No Pre serve, 2-Dose Series (Moderna) 01/05/2022,07/26/2021,12/21/2020,11/09 HEP A - Hepatitis A (Adult > 18 yrs) 09/24/2018, 03/26/2018 Hepatitis B, 20+ yrs 09/24/2018,04/23/2018,03/26 Pneumococcal Conjugate Vacc, 13 Valent (Prevnar) 05/02/2019 Pneumococcal Conjugate Vacci ne, 20-valent ([id number]) 10/21/2022 Pneumococcal Polysaccharide PPV23 (Pneumovax) 06/01/2010 Seasonal [...] Telephone Encounter - Shantal Keys LPN - 11/07/2022 4:04 PM EST Call placed to patient on home number, left message for return call to [facility] * Telephone Encounter - Aleyda Campos PA-C - 11/06/2022 4:44 PM EST Could you please make sure pt finished all of her oral ABX from the hospital? Dx UTI, but no growth Thank you Qi documented in this encounter Plan of Treatment Upcoming Encounters Date Type Specialty Care Team Description 11/09/2022 [facility] Visit [facility] [address] 11/14/2022 Hem/Onc Treatment Hematology Oncology [place], Chair 6 Hem Onc Scenery [address] [facility] [address] 11/14/2022 Office Visit Pharmacy Pharmacist2, [facility] [address] [facility] [address] 11/15/2022 Office Visit Family Medicine Vanita Dunn MD [address], [place] [id number] 11/18/2022 Imaging Radiology 11/21/2022 Telemedicine [facility] Eleni Kelsey CRNP [address] [facility] [place] [address] Kaylee Khan, Community Health Environmental Property Assessor [address] [place] [address] 12/06/2022 Office Visit Gastroenterology Lyssa Stout CRNP 132 [facility] [place] [address] 12/08/2022 Home Visit [facility]da Campos [facility]C [facility] [place] [address] 12/08/2022 Office Visit Hematology Oncology Tono Sanchez MD 200 [place] [address] 02/10/2023 Office Visit Sleep Disorders Love Francisco, [address] [place] [address] 03/01/2023 PulmDiagnostic Pulmonary Function West, Pft [address] [place] [address] Scheduled Procedures Name Priority Associated Diagnoses Date/Ti [...] encounter Medical Devices Implanted Type Area Senior Project Accountant Device Identifier Shelf Expiration Date Model / Serial / Lot Microtech Sure Clip Implanted:Qty: 2 on 06/03/2020 by Janis Hatch DO at OR [facility] Clip N/A: Colon 04/21/2022 ROCC-F-26-2 35-C-R / / [id number] documented as of this encounter Additional Health Concerns Infection Onset Date Last Indicated Resolved Time MRSA 09/17/2022 09/17/2022 documented as of this encounter Advance Directives Documents on File Type Date Recorded Patient Siphoner Expl anation Advance Directives and Living Will 04/29/2021 ADVANCE DIRECTIVE / LIVING WILL LIVING WILL AND HEALTH CARE POA Power of Transportation Design Engineer 04/29/2021 POWER OF A TTORNEY HEALTH [...] the patient have Health Care Power of Transportation Design Engineer? No Code Status History Code Status Date Activated Date Inactivated Comments Full Code 12/27/2021 2:50 PM 12/27/2021 8:02 PM This order reflects the patients wishes and were consensually agreed upon. Question Answer Comments Discussion of Advance Directives occurred with: Not Discussed Does the patient have a Living Will? No Does the patient have Health Care Power of Transportation Design Engineer? No Full Code 03/31/2021 8:57 PM [...] Syed Bustos Spouse Emergency Contact Care Teams Cartography Professor Relationship Specialty Start Date End Date Vanita Dunn MD [address] [place] [address] PCP - General Family Medicine 03/16/21 documented as of this encounter
--- OUTSIDE RECORDS SUMMARY | 2023-05-10 17:11 | External Medical Summary | Summary of Care ---
Author Name Unknown Organization [facility] Address [address] [facility] [place] [address] Phone [phone] Care Team Providers Care Tool Repair Technician Name Role Phone Vanita Dunn MD Primary Care Provid er Reason for Visit * Reason Onset Date Comments [facility]: Maintenance 11/09/2022 Encounter Details Date Type Department Care Team Description 11/09/2022 Telephone [facility], [facility] 132 [place] [address] [facility], Nurse [facility] 132 [place] [address] [facility]: Maintenance Allergies Active Allergy Reactions Severity Noted Date Comments Adhesive Tape Itching 04/29/2020 Penicillins Rash 02/12/2008 Penicillin G 07/20/2018 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 documented as of this encounter (statuses as of 11/09/2022) Medications Medication Sig Dispensed Refills Start Date End Date Status nystatin (NYSTOP) 750552 UNIT/GM powder Apply topically to affected area 3 times a day. 60 g 1 10/16/2019 Active Dexcom G6 Hydrostatic Tubing Tester Device Use as directed. To test blood sugars 4 times a day Dx E11.9 1 Each 0 09/14/2020 Active Dexcom G6 Transmitter Use as directed. To test blood sugars 4 times a day. Change every 90 days. 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 She will not be home. Patientrequested morning appt. Appt rescheduled to 11/17 at 8:30 am. TT to July Poe RN made aware of cancel. Michelle Vyas. RN [facility] waxer [phone] documented in this encounter Plan of Treatment Upcoming Encounters Date Type Specialty Care Team Description 11/14/2022 Hem/Onc Treatment Hematology Oncology [place], Chair 6 Hem Onc Scenery [address] [place] [address] 11/14/2022 Office Visit Pharmacy Pharmacist2, [facility] Sp [address] [place] [address] 11/15/2022 Office Visit Family Medicine Vanita Dunn MD [address] [place] [address] 11/17/2022 Home Visit [facility] July Poe [facility] 132 [facility] [address] 11/18/2022 Imaging Radiology 11/21/2022 Telemedicine [facility] Eleni Kelsey CRNP [address] [facility] [place] [address] Kaylee Khan, Community Health Brush Washer [address] [place] [address] 12/06/2022 Office Visit Gastroenterology Lyssa Stout CRNP 132 [facility] [place] [address] 12/08/2022 Home Visit [facility] Aleyda Campos PA-C [address] [place] [address] 12/08/2022 Office Visit Hematology Oncology Tono Sanchez MD 200 [place] [address] 02/10/2023 Office Visit Sleep Disorders Love Francisco DO [address] [place] [address] 03/01/2023 PulmDiagnostic Pulmonary Function West, Pft [address] [place] [address] Scheduled Procedures Name Priority Associated Diagnoses Date/Ti [...] this encounter Medical Devices Implanted Type Area Brake Lining Maker Device Identifier Shelf Expiration Date Model / Serial / Lot Microtech Sure Clip Implanted:Qty: 2 on 06/03/2020 by Janis Hatch DO at OR [facility] Clip N/A: Colon 04/21/2022 ROCC-F-26-2 35-C-R / / [id number] documented as of this encounter Additional Health Concerns Infection Onset Date Last Indicated Resolved Time MRSA 09/17/2022 09/17/2022 documented as of this encounter Advance Directives Documents on File Type Date Recorded Patient Chain Sales Representative Expl anation Advance Directives and Living Will 04/29/2021 ADVANCE DIRECTIVE / LIVING WILL LIVING WILL AND HEALTH CARE POA Power of Senior Drupal Developer 04/29/2021 POWER OF A [facility]TOR[facility] C[facility] [...] the patient have Health Care Power of Senior Drupal Developer? No Code Status History Code Status Date Activated Date Inactivated Comments Full Code 12/27/2021 2:50 PM 12/27/2021 8:02 PM This order reflects the patients wishes and were consensually agreed upon. Question Answer Comments Discussion of Advance Directives occurred with: Not Discussed Does the patient have a Living Will? No Does the patient have Health Care Power of Senior Drupal Developer? No Full Code 03/31/2021 8:57 PM 04/03/2021 [...] Agents on File Name Relationship Healthcare Agent Counts Include [facility] Communication Syed Bustos Spouse Emergency Contact Care Teams Tool Repair Technician Relationship Specialty Start Date End Date Vanita Dunn MD [address] [place], [place] [phone] PCP - General Family Medicine 03/16/21 documented as of this encounter
--- OUTSIDE RECORDS SUMMARY | 2023-05-10 17:12 | External Medical Summary | Summary of Care ---
Author Name Unknown Organization [facility] [place] [address] Care Team Providers Care Produce Department Supervisor Name Role Phone Vanita Dunn MD Primary Care Provid er Reason for Visit * Reason Onset Date Comments [facility]: Maintenance 11/07/2022 Encounter Details Date Type Department Care Team Description 11/07/2022 Telephone [facility], [facility] 132 [facility] [place] [address] [facility], Nurse [facility] [address] [facility] [place] [address] [facility]: Maintenance Allergies Active Allergy Reactions Severity Noted Date Comments Adhesive Tape Itching 04/29/2020 Penicillins Rash 02/12/2008 Penicillin G 07/20/2018 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 documented as of this encounter (statuses as of 11/07/2022) Medications Medication Sig Dispensed Refills Start Date End Date Status nystatin (NYSTOP) 515535 UNIT/GM powder Apply topically to affected area 3 times a day. 60 g 1 10/16/2019 Active Dexcom G6 Dialysis Registered Nurse Device Use as directed. To test blood sugars 4 times a day Dx E11.9 1 Each 0 09/14/2020 Active Dexcom G6 Transmitter Use as directed. To test blood sugars 4 times a day. Change every 90 days. 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 11ED visit in 1 year. Said she usually goes to [facility] ED. Routed to care team Michelle Vyas. RN [facility] RN [phone] documented in this encounter Plan of Treatment Upcoming Encounters Date Type Specialty Care Team Description 11/09/2022 Home Visit [facility] July Poe RN [address] [place] [address] 11/14/2022 Hem/Onc Treatment Hematology Oncology [place], Chair 6 Hem Onc Scenery [address] [place] [address] 11/14/2022 Office Visit Pharmacy Pharmacist2, [facility] Sp [address] [place] [address] 11/15/2022 Office Visit Family Medicine Vanita Dunn MD [address] [place] [address] 11/18/2022 Imaging Radiology 11/21/2022 Telemedicine [facility] Eleni Kelsey CRNP [address] [facility] [place] [address] Kaylee Khan, Community Health Telecommunication Equipment Repairer [address] [facility] [place] [address] 12/06/2022 Office Visit Gastroenterology Lyssa Stout CRNP [address] [place] [address] 12/08/2022 Home Visit [facility] Aleyda Campos PA-C 132 [facility] [place] [address] 12/08/2022 Office Visit Hematology Oncology Tono Sanchez MD 200 [place] [address] 02/10/2023 Office Visit [facility] Disorders Love Francisco[facility] [place] [address] 03/01/2023 PulmDiagnostic Pulmonary Function West, Pft [address] [place] [address] Scheduled Procedures Name Priority Associated Diagnoses Date/Ti [...] this encounter Medical Devices Implanted Type Area Direct Sales Professional Device Identifier Shelf Expiration Date Model / Serial / Lot Microtech Sure Clip Implanted:Qty: 2 on 06/03/2020 by Janis Hatch DO at OR [facility] Clip N/A: Colon 04/21/2022 [facility]-F-26-2 35-C-R / / [id number] documented as of this encounter Additional Health Concerns Infection Onset Date Last Indicated Resolved Time MRSA 09/17/2022 09/17/2022 documented as of this encounter Advance Directives Documents on File Type Date Recorded Patient Handy Worker Expl anation Advance Directives and Living Will 04/29/2021 ADVANCE DIRECTIVE / LIVING WILL LIVING WILL AND HEALTH CARE POA Power of Boom Conveyor Operator 04/29/2021 POWER OF A TTORNEY HEALTH [...] the patient have Health Care Power of Boom Conveyor Operator? No Code Status History Code Status Date Activated Date Inactivated Comments Full Code 12/27/2021 2:50 PM 12/27/2021 8:02 PM This order reflects the patients wishes and were consensually agreed upon. Question Answer Comments Discussion of Advance Directives occurred with: Not Discussed Does the patient have a Living Will? No Does the patient have Health Care Power of Boom Conveyor Operator? No Full Code 03/31/2021 8:57 PM [...] Agents on File Name Relationship Healthcare Agent [facility] Communication Syed Bustos Spouse Emergency Contact Care Teams Produce Department Supervisor Relationship Specialty Start Date End Date Vanita Dunn MD [address] [place] [address] PCP - General Family Medicine 03/16/21 documented as of this encounter
--- OUTSIDE RECORDS SUMMARY | 2023-05-10 17:12 | External Medical Summary | Summary of Care ---
Author Name Unknown Organization [place] [address] Care Team Providers Care Superintendent Service Name Role Phone Vanita Dunn MD Primary Care Provid er Reason for Visit * Reason Onset Date Comments Abnormal Test Results 11/06/2022 Encounter Details Date Type Department Care Team Description 11/06/2022 Telephone [facility], [facility] [address] [place] [address] [facility] [address] [place] [address] Abnormal Test Results Allergies Active Allergy Reactions Severity Noted Date Comments Adhesive Tape Itching 04/29/2020 Penicillins Rash 02/12/2008 Penicillin G 07/20/2018 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 documented as of this encounter (statuses as of 11/06/2022) Medications Medication Sig Dispensed Refills Start Date End Date Status nystatin (NYSTOP) 669547 UNIT/GM powder Apply topically to affected area 3 times a day. 60 g 1 10/16/2019 Active Dexcom G6 Cabin Supervisor Device Use as directed. To test blood sugars 4 times a day Dx E11.9 1 Each 0 09/14/2020 Active Dexcom G6 Transmitter Use as directed. To test blood sugars 4 times a day. Change every 90 days. Dx E11.9 1 Each 3 09/14/2020 Active OneTouch Verio In Vitro Strip (Glucose Blood) TESTING once daily 100 Strip 3 10/29/2020 Active OneTouch Delica Plus Xecxtl70S TESTING once daily 100 Each 3 10/29/2020 [...] 8.0% ([facility]) 35 Units at breakfast, 39 Units [...] 8.0% ([facility]) Inject 27 units subcutaneously at bedtime [...] oxyCODONE HCl 5 MG Oral Tablet (Oxy IR)Indications:Change Director kai pain syndrome Take 1 Tablet by [...] as of this encounter (statuses as of 11/06/2022) Active Problems Problem Noted Date Aspiration pneumonia [...] a correction plan is made -continue lexapro Impaired mobility [...] as of this encounter (statuses as of 11/06/2022) Resolved Problems Problem Noted Date Resolved Date [...] pain 01/24/2012 01/17/2017 Genetic Sleep Disorder Research Other*[id number] 05/13/2011 04/07/2016 Obstructive sleep apnea 01/18/2011 12/27/19 [...] as of this encounter (statuses as of 11/06/2022) Immunizations Name Administration Dates Next Due COVID-19 mRNA, LNP-s, No Pre serve, 2-Dose Series (Moderna) 01/05/2022,07/26/2021,12/21/2020,11/09 HEP A - Hepatitis A (Adult > 18 yrs) 09/24/2018, 03/26/2018 Hepatitis B, 20+ yrs 09/24/2018,04/23/2018,03/26 Pneumococcal Conjugate Vacc, 13 Valent (Prevnar) 05/02/2019 Pneumococcal Conjugate Vacci ne, 20-valent ([id number]) 10/21/2022 Pneumococcal Polysaccharide PPV23 (Pneumovax) 06/01/2010 Seasonal [...] encounter Miscellaneous Notes * Telephone Encounter - Aleyda Campos PA-C - 11/06/2022 4:44 PM EST Could you please make sure pt finished all of her oral ABX from the hospital? Dx UTI, but no growth Thank you Qi documented in this encounter Plan of Treatment Upcoming Encounters Date Type Specialty Care Team Description 11/07/2022 Office Visit Family Medicine Vanita Dunn MD [address] [place] [address] 11/09/2022 Home Visit [facility] July Poe RN [address] [place] [address] 11/14/2022 Hem/Onc Treatment Hematology Oncology [place], Chair 6 Hem Onc Scenery [address] [facility] [address] 11/14/2022 Office Visit Pharmacy Pharmacist2, [facility] Sp [address] [facility] [address] 11/21/2022 Telemedicine [facility] Eleni Kelsey CRNP [address] [facility] [place] [address] Kaylee Khan, Community Health Cis Coordinator [address] [place] [address] 12/06/2022 Office Visit Gastroenterology Lyssa Stout CRNP [address] [place] [address] 12/08/2022 Home Visit [facility] Aleyda Campos PA-C [address] [place] [address] 12/08/2022 Office Visit Hematology Oncology Tono Sanchez MD 200 [place] [address] 02/10/2023 Office Visit Sleep Disorders Cheng Franciscoy Tracie, DO [address] [place] [address] 03/01/2023 PulmDiagnostic Pulmonary Function West, Pft [address] [place] [address] Scheduled Procedures Name Priority Associated Diagnoses Date/Ti [...] this encounter Medical Devices Implanted Type Area Lead Cargoman Device Identifier Shelf Expiration Date Model / Serial / Lot Microtech Sure Clip Implanted:Qty: 2 on 06/03/2020 by Janis Hatch DO at OR [facility] Clip N/A: Colon 04/21/2022 [facility]-F-26-2 35-C-R / / [id number] documented as of this encounter Additional Health Concerns Infection Onset Date Last Indicated Resolved Time MRSA 09/17/2022 09/17/2022 documented as of this encounter Advance Directives Documents on File Type Date Recorded Patient Resin Mixer Expl anation Advance Directives and Living Will 04/29/2021 ADVANCE DIRECTIVE / LIVING WILL LIVING WILL AND HEALTH CARE POA Power of Conveyor Monitor 04/29/2021 POWER OF A TTOR[facility] CARE [...] the patient have Health Care Power of Conveyor Monitor? No Code Status History Code Status Date Activated Date Inactivated Comments Full Code 12/27/2021 2:50 PM 12/27/2021 8:02 PM This order reflects the patients wishes and were consensually agreed upon. Question Answer Comments Discussion of Advance Directives occurred with: Not Discussed Does the patient have a Living Will? No Does the patient have Health Care Power of Conveyor Monitor? No Full Code 03/31/2021 8:57 PM 04/03/2021 [...] Agents on File Name Relationship Healthcare Agent [facility] p Communication Syed Bustos Spouse Emergency Contact Care Teams Superintendent Service Relationship Specialty Start Date End Date Vanita Dunn MD [address] [place], [place] [phone] PCP - General Family Medicine 03/16/21 documented as of this encounter
--- OUTSIDE RECORDS SUMMARY | 2023-05-10 17:13 | External Medical Summary | Summary of Care ---
Author Name Unknown Organization [place] [address] Care Team Providers Care Robotype Operator Name Role Phone Vanita Dunn MD Primary Care Provid er Reason for Visit * Reason Onset Date Comments Appointment 11/04/2022 Appointment Canceled 11/04/2022 Encounter Details Date Type Department Care Team Description 11/04/2022 Telephone Hematology/Oncology Treatment, [address] [address] Tono Sanchez MD [address] [place] [address] Appointment; Appointment Canceled Allergies Active Allergy Reactions Severity Noted Date Comments Adhesive Tape Itching 04/29/2020 Penicillins Rash 02/12/2008 Penicillin G 07/20/2018 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 documented as of this encounter (statuses as of 11/04/2022) Medications Medication Sig Dispensed Refills Start Date End Date Status nystatin (NYSTOP) 258969 UNIT/GM powder Apply topically to affected area 3 times a day. 60 g 1 10/16/2019 Active Dexcom G6 Industrial Relations Worker Device Use as directed. To test blood sugars 4 times a day Dx E11.9 1 Each 0 09/14/2020 Active Dexcom G6 Transmitter Use as directed. To test blood sugars 4 times a day. Change every 90 days. Dx E11.9 1 Each 3 09/14/2020 Active OneTouch Verio In Vitro Strip (Glucose Blood) TESTING once daily 100 Strip 3 10/29/2020 Active OneTouch Delica Plus [id number] TESTING once daily 100 Each 3 10/29/2020 [...] hemoglobin A1c goal of less than 8.0% ([facility]) 35 Units at breakfast, 39 Units [...] hemoglobin A1c goal of less than 8.0% (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 05/13/2011 04/07/2016 Obstructive sleep apnea 01/18/2011 12/27/19 [...] as of this encounter (statuses as of 11/04/2022) Immunizations Name Administration Dates Next Due COVID-19 mRNA, LNP-s, No Pre serve, 2-Dose Series (Moderna) 01/05/2022,07/26/2021,12/21/2020,11/09 HEP A - Hepatitis A (Adult > 18 yrs) 09/24/2018, 03/26/2018 Hepatitis B, 20+ yrs 09/24/2018,04/23/2018,03/26 Pneumococcal Conjugate Vacc, 13 Valent (Prevnar) 05/02/2019 Pneumococcal Conjugate Vacci ne, 20-valent ([id number]) 10/21/2022 Pneumococcal Polysaccharide PPV23 (Pneumovax) 06/01/2010 Seasonal [...] Miscellaneous Notes * Telephone Encounter - THAD Serna - 11/04/2022 3:48 PM EST Pt missed appt car broke down, please call to assist in rescheduling. Her was wondering if they can do this on november 14 before or after MTM appt. Called and spoke to patients and he is aware of appt for 11/14/22 for venofer. * Telephone Encounter - Francine Okeefe RN - 11/04/2022 3:32 PM EST Patient did not show up for venofer. Scheduling: please call patient to re-schedule. Thank you! * Telephone Encounter - Cassie Barboza RN - 11/04/2022 9:04 AM EST Received message from someone stating that they were calling to confirm patients appt for iron infusion. Call back number [phone]. Called and spoke to both patient and on speakerphone, advised appt is at 1pm today. They verbalized understanding, confirmed that they will be coming to appt. documented in this encounter Plan of Treatment Upcoming Encounters Date Type Specialty Care Team Description 11/07/2022 Office Visit Family Medicine [facility] [address] [id number] 11/09/2022 [facility] Visit [facility] July Poe RN [address] [place] [address] 11/14/2022 Hem/Onc Treatment Hematology Oncology Park, Chair 6 Hem Onc Sc[address] [place] [address] 11/14/2022 Office Visit Pharmacy Pharmacist2, [facility] [address] [facility] [place] [address] 11/21/2022 [facility]medicine [facility] Eleni Kelsey CRNP [address] [place] [address] Kaylee Khan, Community Health Scheduler Conveyor [address] [place], [place] [id number] 12/06/2022 Office Visit Gastroenterology Lyssa Stout CRNP 132 [facility] [place] [address] 12/08/2022 [facility] Visit [facility]pos [facility]-C [facility] [place] [address] 12/08/2022 Office Visit Hematology Oncology Tono Sanchez MD 200 [facility] [place] [address] 02/10/2023 Office Visit Sleep Disorders Love Francisco DO [address] [place] [address] 03/01/2023 PulmDiagnostic Pulmonary Function West, Pft 132 [facility] [place] [address] Scheduled Procedures Name Priority Associated Diagnoses Date/Ti [...] this encounter Medical Devices Implanted Type Area Basket Turner Device Identifier Shelf Expiration Date Model / Serial / Lot Microtech Sure Clip Implanted:Qty: 2 on 06/03/2020 by Janis Hatch DO at OR [facility] Clip N/A: Colon 04/21/2022 [facility]-F-26-2 35-C-R / / [id number] documented as of this encounter Additional Health Concerns Infection Onset Date Last Indicated Resolved Time MRSA 09/17/2022 09/17/2022 documented as of this encounter Advance Directives Documents on File Type Date Recorded Patient Manager Marketing Communication Expl anation Advance Directives and Living Will 04/29/2021 ADVANCE DIRECTIVE / LIVING WILL LIVING WILL AND HEALTH CARE POA Power of Ranch Supervisor 04/29/2021 POWER OF A TTORNEY HEALTH [...] the patient have Health Care Power of Ranch Supervisor? No Code Status History Code Status Date Activated Date Inactivated Comments Full Code 12/27/2021 2:50 PM 12/27/2021 8:02 PM This order reflects the patients wishes and were consensually agreed upon. Question Answer Comments Discussion of Advance Directives occurred with: Not Discussed Does the patient have a Living Will? No Does the patient have Health Care Power of Ranch Supervisor? No Full Code 03/31/2021 8:57 PM [...] Syed Bustos Spouse Emergency Contact Care Teams Robotype Operator Relationship Specialty Start Date End Date Vanita Dunn MD [address] [place] [address] PCP - General Family Medicine 03/16/21 documented as of this encounter
--- OUTSIDE RECORDS SUMMARY | 2023-05-10 17:13 | External Medical Summary | Summary of Care ---
Author Name Unknown Organization [facility] Address [facility] [place] [address] Care Team Providers Care Tap Builder Name Role Phone Vanita Dunn MD Primary Care Provid er Reason for Visit * Reason Onset Date Comments Appointment 11/01/2022 Encounter Details Date Type Department Care Team Description 11/01/2022 Telephone [facility], [facility] [address] [place] [address] [facility] [address] [facility] [place] [address] Appointment Allergies Active Allergy Reactions Severity Noted Date Comments Adhesive Tape Itching 04/29/2020 Penicillins Rash 02/12/2008 Penicillin G 07/20/2018 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 documented as of this encounter (statuses as of 11/06/2022) Medications Medication Sig Dispensed Refills Start Date End Date Status nystatin (NYSTOP) 244096 UNIT/GM powder Apply topically to affected area 3 times a day. 60 g 1 10/16/2019 Active Dexcom G6 Family Dinner Service Specialist Device Use as directed. To test blood sugars 4 times a day Dx E11.9 1 Each 0 09/14/2020 Active Dexcom G6 Transmitter Use as directed. To test blood sugars 4 times a day. Change every 90 days. 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:Psychology Clinician kai pain syndrome Take 1 Tablet by [...] pain 01/24/2012 01/17/2017 Genetic Sleep Disorder Research Other*[id number] 05/13/2011 04/07/2016 Obstructive sleep apnea 01/18/2011 12/27/19 [...] (Prevnar) 05/02/2019 Pneumococcal Conjugate Vacci ne, 20-valent ([id number]) 10/21/2022 Pneumococcal Polysaccharide PPV23 (Pneumovax) 06/01/2010 Seasonal Influenza, Quadriva lent Hd (Fluzone Hd) 07/28/2022,06/10/2021 Seasonal Influenza, Quadriva lent, No Preserve, 6 Mons & Above, IM 06/01/2020,06/05/2019,05/16/2018,/06/05/2020 Seasonal Influenza, Quadriva lent, No Preserve, IM [...] as of this encounter Miscellaneous Notes * Result Encounter Note - Aleyda Campos PA-C - 11/06/2022 4:52 PM EST No acute process Recently treated for aspiration PNA * Telephone Encounter - Liz Grullon LPN - 11/01/2022 5:18 PM EST Images from the original note were not included. Call to [facility] spoke with Maggie gave verbal order for chest x-ray. She stated she will schedule x-ray for tomorrow 11/02/22. Claim# [id number] Faxed order and pt demograhics to [facility] at [phone] Call to [facility] spoke with Alejandro requested an updated med list be faxed to [facility] at [phone]. Per Alejandro she will fax to us at requested number Scheduled [facility] KATELYN Poe for 11/03 @ 4:00 pm for straight cath and repeat UA Will forward to care team as FYI * Telephone Encounter - Aleyda Campos PA-C - 11/01/2022 10:29 AM EST Please fax order for mobile CXR JONO Please schedule for repeat UA straight cath Please get updated med list from [facility] and scan into chart Thank you documented in this encounter Plan of Treatment Upcoming Encounters Date Type Specialty Care Team Description 11/07/2022 Office Visit Family Medicine [facility] [address] [facility] [address] 11/09/2022 [facility] Visit [facility] July Poe RN 132 [facility] [place] [address] 11/14/2022 Hem/Onc Treatment Hematology Oncology [place], Chair 6 Hem Onc [facility] 200 [facility], [place] [address] 11/14/2022 Office Visit Pharmacy Pharmacist2, [facility] [address] [facility], [place] [address] 11/21/2022 [facility]medicine [facility] Eleni Kelsey CRNP [address] [facility] [place] [address] Kaylee Khan, Community Health Supervisor [employer] [address] [place] [address] 12/06/2022 Office Visit Gastroenterology Lyssa Stout CRNP 132 [facility] [place] [address] 12/08/2022 Home Visit [facility] Aleyda Campos PA-C 132 [facility] [place] [address] 12/08/2022 Office Visit Hematology Oncology Tono Sanchez MD 200 [facility], [place] [address] 02/10/2023 Office Visit Sleep Disorders Love Francisco, [address] [place] [address] 03/01/2023 PulmDiagnostic Pulmonary Function West, Pft [address] [place] [address] Scheduled Procedures Name Priority Associated Diagnoses Date/Ti [...] this encounter Medical Devices Implanted Type Area Underground Supervisor Device Identifier Shelf Expiration Date Model / Serial / Lot Microtech Sure Clip Implanted:Qty: 2 on 06/03/2020 by Janis Hatch DO at OR [facility] Clip N/A: Colon 04/21/2022 [facility]-F-26-2 35-C-R / / [id number] documented as of this encounter Procedures Procedure Name Priority Date/Time Associated Diagnosis Comments XR CHEST 2 VIEWS Routine 11/02/2022 Aspiration pneumonia, unspecified aspiration pneumonia type, unspecified laterality, unspecified part of lung (HCC) documented in this encounter Results * (ABNORMAL) URINALYSIS WITH MICROSCOPIC EXAM (11/03/2022 12:15 PM EST) Color, Urine Yellow Colorless, Light Yellow, Yellow, Dark Yellow 11/03/2022 10:08 PM EST [facility] Clarity, Urine Slightly Cloudy(A) Clear 11/03/2022 10:08 PM EST [facility] Glucose, Urine Negative Negative mg/dL 11/03/2022 10:08 PM EST [facility] Bilirubin, Urine Negative Negative 11/03/2022 10:08 PM EST [facility] Ketone, Urine Negative Negative mg/dL 11/03/2022 10:08 PM EST [facility] Specific Leonore, Urine 1.025 1.003 - 1.030 11/03/2022 10:08 PM EST [facility] Blood, Urine Large(A) Negative 11/03/2022 10:08 PM EST [facility] pH, Urine 6.5 5.0 - 7.5 Units 11/03/2022 10:08 PM EST [facility] Protein, Urine 30(A) Negative mg/dL 11/03/2022 10:08 PM EST [facility] Urobilinogen, Urine Normal Normal mg/dL 11/03/2022 10:08 PM EST [facility] Nitrite, Urine Negative Negative 11/03/2022 10:08 PM EST [facility] Esterase, Urine Large(A) Negative 11/03/2022 10:08 PM EST [facility] RBC, Urine 50+(A) 0 - 2 /HPF 11/03/2022 10:08 PM EST [facility] WBC, Urine 50+(A) 0 - 2 /HPF 11/03/2022 10:08 PM EST [facility] Bacteria, Urine 101-150(A) 0 - 25 /HPF 11/03/2022 10:08 PM EST [facility] Calcium Oxalate Crystal, Urine 30-49(A) None /HPF 11/03/2022 10:08 PM EST [facility] Hyaline, Cast, Urine 1-4(A) None /LPF 11/03/2022 10:08 PM EST [facility] Yeast, Urine Present(A) None /HPF 11/03/2022 10:08 PM EST [facility] Urine Non-blood Collection / Unknown 11/03/2022 12:15 PM EST 11/03/2022 1:29 PM EST Aleyda FIGUEROA-C LAB URINE ORD ERABLES [facility] [address] [place] [address] * XR CHEST 2 VIEWS (11/02/2022) Anatomical Region Laterality Modality Chest Other Aleyda FIGUEROA-C RADIOLOGY (RA D GENERAL) documented in this encounter Visit Diagnoses Diagnosis Aspiration pneumonia, unspecified aspiration pneumonia type, unspecified laterality, unspecified part of lung (HCC)- Primary Acute cystitis without hematuria Acute cystitis documented in this encounter Additional Health Concerns Infection Onset Date Last Indicated Resolved Time MRSA 09/17/2022 09/17/2022 documented as of this encounter Advance Directives Documents on File Type Date Recorded Patient Psychiatric Mental Health Nurse Expl anation Advance Directives and Living Will 04/29/2021 ADVANCE DIRECTIVE / LIVING WILL LIVING WILL AND HEALTH CARE POA Power of Broodmare Barn Groom 04/29/2021 POWER OF A TTORNEY HEALTH CARE [...] the patient have Health Care Power of Broodmare Barn Groom? No Code Status History Code Status Date Activated Date Inactivated Comments Full Code 12/27/2021 2:50 PM 12/27/2021 8:02 PM This order reflects the patients wishes and were consensually agreed upon. Question Answer Comments Discussion of Advance Directives occurred with: Not Discussed Does the patient have a Living Will? No Does the patient have Health Care Power of Broodmare Barn Groom? No Full Code 03/31/2021 8:57 PM 04/03/2021 [...] Agents on File Name Relationship Healthcare Agent [facility] p Communication Syed Bustos Spouse Emergency Contact Care Teams Tap Builder Relationship Specialty Start Date End Date Vanita Dunn MD [address] [place] [address] PCP - General Family Medicine 03/16/21 documented as of this encounter
--- OUTSIDE RECORDS SUMMARY | 2023-05-10 17:13 | External Medical Summary | Summary of Care ---
Author Name Unknown Organization [place] [address] Care Team Providers Care Hospitality Ambassador Name Role Phone Vanita Dunn MD Primary Care Provid er Reason for Visit * Reason Onset Date Comments Appointment 11/04/2022 Encounter Details Date Type Department Care Team Description 11/04/2022 Telephone Hematology/Oncology Treatment, [address] [address] Tono Sanchez MD [address] [place] [address] Appointment Allergies Active Allergy Reactions Severity Noted Date Comments Adhesive Tape Itching 04/29/2020 Penicillins Rash 02/12/2008 Penicillin G 07/20/2018 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 documented as of this encounter (statuses as of 11/04/2022) Medications Medication Sig Dispensed Refills Start Date End Date Status nystatin (NYSTOP) 252921 UNIT/GM powder Apply topically to affected area 3 times a day. 60 g 1 10/16/2019 Active Dexcom G6 Buffet Attendant Device Use as directed. To test blood sugars 4 times a day Dx E11.9 1 Each 0 09/14/2020 Active Dexcom G6 Transmitter Use as directed. To test blood sugars 4 times a day. Change every 90 days. 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 Call back number [phone]. Called and spoke to both patient and on speakerphone, advised appt is at 1pm today. They verbalized understanding, confirmed that they will be coming to appt. documented in this encounter Plan of Treatment Upcoming Encounters Date Type Specialty Care Team Description 11/07/2022 Office Visit Family Medicine Vanita Dunn MD [address] [place] [address] 11/09/2022 Home Visit [facility] July Poe RN [address] [place] [address] 11/14/2022 Office Visit Pharmacy Pharmacist2, [address] [address] 11/21/2022 Telemedicine [facility] Eleni Kelsey CRNP [address] [facility] [place] [address] Kaylee Khan, Community Health Costume Rental Clerk [address] [place] [address] 12/06/2022 Office Visit Gastroenterology Lyssa Stout CRNP 132 [facility] [place] [address] 12/08/2022 Home Visit [facility] Aleyda Campos PA-C [address] [place] [address] 12/08/2022 Office Visit Hematology Oncology Tono Sanchez MD 200 [place] [address] 02/10/2023 Office Visit Sleep Disorders Love Francisco, DO 132 [facility] [place] [address] 03/01/2023 PulmDiagnostic Pulmonary Function West, Pft 132 [facility] [place] [address] Scheduled Procedures Name Priority Associated Diagnoses Date/Ti [...] encounter Medical Devices Implanted Type Area Manager Behavior Device Identifier Shelf Expiration Date Model / Serial / Lot Microtech Sure Clip Implanted:Qty: 2 on 06/03/2020 by Janis Hatch DO at OR [facility] Clip N/A: Colon 04/21/2022 [facility]-F-26-2 35-C-R / / [id number] documented as of this encounter Additional Health Concerns Infection Onset Date Last Indicated Resolved Time MRSA 09/17/2022 09/17/2022 documented as of this encounter Advance Directives Documents on File Type Date Recorded Patient Supplier Relationship Director Expl anation Advance Directives and Living Will 04/29/2021 ADVANCE DIRECTIVE / LIVING WILL LIVING WILL AND HEALTH CARE POA Power of Insulation Inspector 04/29/2021 POWER OF A TTORNEY HEALTH [...] the patient have Health Care Power of Insulation Inspector? No Code Status History Code Status Date Activated Date Inactivated Comments Full Code 12/27/2021 2:50 PM 12/27/2021 8:02 PM This order reflects the patients wishes and were consensually agreed upon. Question Answer Comments Discussion of Advance Directives occurred with: Not Discussed Does the patient have a Living Will? No Does the patient have Health Care Power of Insulation Inspector? No Full Code 03/31/2021 8:57 PM [...] Syed Bustos Spouse Emergency Contact Care Teams Hospitality Ambassador Relationship Specialty Start Date End Date Vanita Dunn MD [address] [place] [facility] [place] [address] PCP - General Family Medicine 03/16/21 documented as of this encounter
--- OUTSIDE RECORDS SUMMARY | 2023-05-10 17:14 | External Medical Summary | Summary of Care ---
Author Name Unknown Organization [place] [address] Care Team Providers Care Business Development Associate Name Role Phone Vanita Dunn MD Primary Care Provid er Reason for Visit * Reason Onset Date Comments Appointment 11/04/2022 Encounter Details Date Type Department Care Team Description 11/04/2022 Telephone Hematology/Oncology Treatment, [address] [address] Tono Sanchez MD [address] [place] [address] Appointment Allergies Active Allergy Reactions Severity Noted Date Comments Adhesive Tape Itching 04/29/2020 Penicillins Rash 02/12/2008 Penicillin G 07/20/2018 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 documented as of this encounter (statuses as of 11/04/2022) Medications Medication Sig Dispensed Refills Start Date End Date Status nystatin (NYSTOP) 978198 UNIT/GM powder Apply topically to affected area 3 times a day. 60 g 1 10/16/2019 Active Dexcom G6 Projection Technician Device Use as directed. To test blood sugars 4 times a day Dx E11.9 1 Each 0 09/14/2020 Active Dexcom G6 Transmitter Use as directed. To test blood sugars 4 times a day. Change every 90 days. 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 kai pain syndrome Take 1 Tablet [...] a fdc plan is made -continue lexapro Impaired mobility [...] pain 01/24/2012 01/17/2017 Genetic Sleep Disorder Research Other*[id number] 05/13/2011 04/07/2016 Obstructive sleep apnea 01/18/2011 12/27/19 [...] (Prevnar) 05/02/2019 Pneumococcal Conjugate Vacci ne, 20-valent ([id number]) 10/21/2022 Pneumococcal Polysaccharide PPV23 (Pneumovax) 06/01/2010 Seasonal [...] encounter Miscellaneous Notes * Telephone Encounter - Cassie Barboza RN - 11/04/2022 9:04 AM EST Received message from someone stating that they were calling to confirm patients appt for iron infusion. Call back number [phone]. Called and spoke to both patient and on speakerphone, advised appt is at 1pm today. They verbalized understanding, confirmed that they will be coming to appt. documented in this encounter Plan of Treatment Upcoming Encounters Date Type Specialty Care Team Description 11/04/2022 Hem/Onc Treatment Hematology Oncology [place], Chair 10 Hem Onc [address] [place] [address] 11/04/2022 Office Visit Pharmacy Pharmacist2, [facility] Sp [address] [place] [address] 11/07/2022 Office Visit Family Medicine Vanita Dunn MD [address] [place] [address] 11/09/2022 Home Visit [facility] July Poe RN 132 [place] [address] 11/21/2022 Telemedicine [facility] Kelsey CR[facility] [address] [facility] [address] Kaylee Khan, Community Health [place] Agricultural Agent [address] [place] [address] 12/06/2022 Office Visit Gastroenterology Lyssa Stout CRNP 132 [place] [address] 12/08/2022 Home Visit [facility] Aleyda Campos PA-C 132 [facility] [place] [address] 12/08/2022 Office Visit Hematology Oncology Tono Sanchez MD 200 [place] [address] 02/10/2023 Office Visit Sleep Disorders Love Francisco, [address] [place] [address] 03/01/2023 PulmDiagnostic Pulmonary Function [place], Pft [address] [place] [address] Scheduled Procedures Name Priority Associated Diagnoses Date/Ti [...] this encounter Medical Devices Implanted Type Area [employer] Device Identifier Shelf Expiration Date Model / Serial / Lot Microtech Sure Clip Implanted:Qty: 2 on 06/03/2020 by Janis Hatch DO at OR [facility] Clip N/A: Colon 04/21/2022 [facility]-F-26-2 35-C-R / / [id number] documented as of this encounter Additional Health Concerns Infection Onset Date Last Indicated Resolved Time MRSA 09/17/2022 09/17/2022 documented as of this encounter Advance Directives Documents on File Type Date Recorded Patient Medical Oncology Physician Expl anation Advance Directives and Living Will 04/29/2021 ADVANCE DIRECTIVE / LIVING WILL LIVING WILL AND HEALTH CARE POA Power of Supervisor Drawing 04/29/2021 [facility]OWER [facility] A [facility] [...] the patient have Health Care Power of Supervisor Drawing? No Code Status History Code Status Date Activated Date Inactivated Comments Full Code 12/27/2021 2:50 PM 12/27/2021 8:02 PM This order reflects the patients wishes and were consensually agreed upon. Question Answer Comments Discussion of Advance Directives occurred with: Not Discussed Does the patient have a Living Will? No Does the patient have Health Care Power of Supervisor Drawing? No Full Code 03/31/2021 8:57 PM 04/03/2021 [...] Agents on File Name Relationship Healthcare Agent [facility] p Communication Syed Bustos Spouse Emergency Contact Care Teams Business Development Associate Relationship Specialty Start Date End Date Vanita Dunn MD [address] [place] [address] PCP - General Family Medicine 03/16/21 documented as of this encounter
--- OUTSIDE RECORDS SUMMARY | 2023-05-10 17:14 | External Medical Summary | Summary of Care ---
Author Name Unknown Organization [place] [address] Care Team Providers Care Hand Edge Bander Name Role Phone Vanita Dunn MD Primary Care Provid er Reason for Visit * Reason Comments Outpatient Testing Encounter Details Date Type Department Care Team Description 11/03/2022 Laboratory Laboratory, [place] [address] [place] [address] St, Specimen Drop Off [address] [address] Acute cystitis without hematuria Allergies Active Allergy Reactions Severity Noted Date Comments Adhesive Tape Itching 04/29/2020 Penicillins Rash 02/12/2008 Penicillin G 07/20/2018 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 documented as of this encounter (statuses as of 11/03/2022) Medications Medication Sig Dispensed Refills Start Date End Date Status nystatin (NYSTOP) 832662 UNIT/GM powder Apply topically to affected area 3 times a day. 60 g 1 10/16/2019 Active Dexcom G6 Dietary Director Device Use as directed. To test blood sugars 4 times a day Dx E11.9 1 Each 0 09/14/2020 Active Dexcom G6 Transmitter Use as directed. To test blood sugars 4 times a day. Change every 90 days. Dx E11.9 1 Each 3 09/14/2020 Active OneTouch Verio In Vitro Strip (Glucose Blood) TESTING once daily 100 Strip 3 10/29/2020 Active OneTouch Delica Plus [id number] TESTING once daily 100 Each 3 10/29/2020 [...] oxyCODONE HCl 5 MG Oral Tablet (Oxy IR)Indications:Cell Attendant Helper kai pain syndrome Take 1 Tablet by [...] as of this encounter (statuses as of 11/03/2022) Active Problems Problem Noted Date Aspiration pneumonia [...] a halfway plan is made -continue lexapro Impaired mobility [...] as of this encounter (statuses as of 11/03/2022) Resolved Problems Problem Noted Date Resolved Date [...] pain 01/24/2012 01/17/2017 Genetic Sleep Disorder Research Other*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 05/13/2011 04/07/2016 Obstructive sleep apnea 01/18/2011 12/27/19 [...] as of this encounter (statuses as of 11/03/2022) Immunizations Name Administration Dates Next Due COVID-19 mRNA, LNP-s, No Pre serve, 2-Dose Series (Moderna) 01/05/2022,07/26/2021,12/21/2020,11/09 HEP A - Hepatitis A (Adult > 18 yrs) 09/24/2018, 03/26/2018 Hepatitis B, 20+ yrs 09/24/2018,04/23/2018,03/26 Pneumococcal Conjugate Vacc, 13 Valent (Prevnar) 05/02/2019 Pneumococcal Conjugate Vacci ne, 20-valent ([id number]) 10/21/2022 Pneumococcal Polysaccharide PPV23 (Pneumovax) 06/01/2010 Seasonal [...] Encounters Date Type Specialty Care Team Description 11/03/2022 Home Visit [facility] July Poe RN [address] [place] [address] UTI (urinary tract infection)* 11/04/2022 Hem/Onc Treatment Hematology Oncology [place], Chair 10 Hem Onc [facility] 200 [place] [address] 11/04/2022 Office Visit Pharmacy Pharmacist2, [facility] 200 [place] [address] 11/07/2022 Office Visit Family Medicine Vanita Dunn MD [address] [place] [address] 11/09/2022 Home Visit [facility] July Poe RN [address] [place] [address] 11/21/2022 [facility]medicine [facility]NP [address] [facility] [address] Kaylee Khan, Community Health Funnel Coater [address] [place] [address] 12/06/2022 Office Visit Gastroenterology Lyssa Stout CRNP [address] [place] [address] 12/08/2022 Home Visit [facility] Aleyda Camops PA-C [address] [place] [address] 12/08/2022 Office Visit Hematology Oncology Tono Sanchez MD 200 [facility] [place] [address] 02/10/2023 Office Visit Sleep Disorders Love Francisco, DO [address] [place] [address] 03/01/2023 PulmDiagnostic Pulmonary Function [place], Pft [address] [place] [address] Pending Results Name Type Priority Associated Diagnoses Date /Time URINALYSIS WITH MICROSCOPIC EXAM Lab Routine Acute cystitis without hematuria 11/03/2022 12:15 PM EST Scheduled Procedures Name Priority Associated Diagnoses Date/Ti [...] this encounter Medical Devices Implanted Type Area Cashier General Device Identifier Shelf Expiration Date Model / Serial / Lot Microtech Sure Clip Implanted:Qty: 2 on 06/03/2020 by Janis Hatch DO at OR [facility] Clip N/A: Colon 04/21/2022 [facility]-F-26-2 35-C-R / / [id number] documented as of this encounter Visit Diagnoses Diagnosis UTI (urinary tract infection)- Primary Urinary tract infection, site not specified Acute cystitis without hematuria Acute cystitis documented in this encounter Additional Health Concerns Infection Onset Date Last Indicated Resolved Time MRSA 09/17/2022 09/17/2022 documented as of this encounter Advance Directives Documents on File Type Date Recorded 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 No Code Status History Code Status Date Activated Date Inactivated Comments Full Code 12/27/2021 2:50 PM 12/27/2021 8:02 PM This order reflects the patients wishes and were consensually agreed upon. Question Answer Comments Discussion of Advance Directives occurred with: Not Discussed Does the patient have a Living Will? No Does the patient have Health Care Power of Firearms Assembly Supervisor? No Full Code 03/31/2021 8:57 PM [...] Syed Bustos Spouse Emergency Contact Care Teams Hand Edge Bander Relationship Specialty Start Date End Date Vanita Dunn MD [address] [place] [address] PCP - General Family Medicine 03/16/21 documented as of this encounter
--- OUTSIDE RECORDS SUMMARY | 2023-05-10 17:14 | External Medical Summary | Summary of Care ---
Author Name Unknown Organization [place] [address] Care Team Providers Care Director Of Patient Safety Name Role Phone Vanita Dunn MD Primary Care Provid er Reason for Visit * Reason Comments [facility]: Maintenance Encounter Details Date Type Department Care Team Description 11/03/2022 Home Visit [facility], [facility] 132 [facility] [place] [address] July Poe, RN 132 [facility] [place] [address] UTI (urinary tract infection)* Allergies Active Allergy Reactions Severity Noted Date Comments Adhesive Tape Itching 04/29/2020 Penicillins Rash 02/12/2008 Penicillin G 07/20/2018 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 documented as of this encounter (statuses as of 11/03/2022) Medications Medication Sig Dispensed Refills Start Date End Date Status nystatin (NYSTOP) 374070 UNIT/GM powder Apply topically to affected area 3 times a day. 60 g 1 10/16/2019 Active Dexcom G6 Accounting Technician Device Use as directed. To test blood sugars 4 times a day Dx E11.9 1 Each 0 09/14/2020 Active Dexcom G6 Transmitter Use as directed. To test blood sugars 4 times a day. Change every 90 days. Dx E11.9 1 Each 3 09/14/2020 Active OneTouch Verio In Vitro Strip (Glucose Blood) TESTING once daily 100 Strip 3 10/29/2020 Active OneTouch Delica Plus [id number] TESTING once daily 100 Each 3 10/29/2020 [...] than 8.0% ([facility]) Inject 27 units subcutaneously at bedtime [...] HCl 5 MG Oral Tablet (Oxy IR)Indications:Tire Service Technician kai pain syndrome Take 1 Tablet [...] pain 01/24/2012 01/17/2017 Genetic Sleep Disorder Research Other*[id number] 05/13/2011 04/07/2016 Obstructive sleep apnea 01/18/2011 12/27/19 [...] (Prevnar) 05/02/2019 Pneumococcal Conjugate Vacci ne, 20-valent ([id number]) 10/21/2022 Pneumococcal Polysaccharide PPV23 (Pneumovax) 06/01/2010 Seasonal [...] Sign Reading Time Taken Comments Blood Pressure 114/68 11/03/2022 11:59 AM EST Pulse 62 11/03/2022 11:59 AM EST Temperature 36.1 C (97 F) 11/03/2022 11:59 AM EST Respiratory Rate 18 11/03/2022 11:59 AM EST Oxygen Saturation 96% 11/03/2022 11:59 AM EST Inhaled Oxygen Concentration - - Weight [...] Progress Notes * July Poe RN - 11/03/2022 11:24 AM EST [facility] Cotton Ginner Helper Visit Date: 11/03/2022 Time: 11:24 AM Name: Shaina Bustos : 1955 Current Concerns: Pt seen for return RNCM visit and BALDOMERO #2 Admitted to [facility] 10/28 - 10/29/22 for SOB, possible UTI Discharged home on Bactrim DS - has 7 doses left Pt denies any pain or concerns at this time. She did report that she has not had a bm yesterday or today yet She and report she is not taking lactulose until she gets home today because they are goingout and do not want a "mess" while out Advised again on the importance of having several bowel movements a day - they verbalize understanding - reports, "I do what she wants me to" Blood sugars have been ranging low 100's to mid 300's - reports he is giving 60 units of Lantus q hs and if high or low blood sugar, will adjust it - he can't say how much he adjusts it by. This am gave 35 units of Novolog and blood sugar is 109 now. Pt straight cathed today for urine sample Specimen obtained and taken to [facility] Physical Exam: BP 114/68 | Pulse 62 | Temp 36.1 C (97 F) | Resp 18 | SpO2 96% [...] is soft. Musculoskeletal: Right lower leg: Edema (baseline) present. Left lower leg: Edema (baseline) present. Skin: General: Skin is warm and dry. Neurological: Mental Status: She is alert and oriented to person, place, and time. Problems/Symptoms: Review of Systems Constitutional: Negative. HENT: Negative. Respiratory: Positive for cough (white mucus) and shortness of breath (at baseline). Cardiovascular: Positive for leg swelling. Gastrointestinal: Negative. Genitourinary: Negative. Musculoskeletal: Positive for arthralgias and gait problem (non-ambulatory). Skin: Negative. Psychiatric/Behavioral: Negative. Medication Reconciliation: (See medication list) Does patient take medications as ordered: No Continues to miss doses of Lactulose because she refuses to take it Patient Well Being: PHQ2/9: No questionnaires available. No change in living situation. No falls - non ambulatory - uses svetlana lift for transfers [facility]-10 Completed this Visit: No. Routine visit and No falls since last visit Advanced Care Planning: No documentation, ACP on file. Patient's Goals of Care: 1. Remain in home 2. Get a cg auto porter 3. Get out more Reinforcement/Education: Reviewed HF symptom monitoring: -Weigh self daily [...] if at night -increased fatigue or vertigo DIABETES: -Blood sugar testing schedule: Twice a [...] daily if no bm within 24 hrs Complete abx until gone Home Interventions Provided: Labs/Specimen Collection Performed UA with reflex to cx Home Intervention: Other; Eval Reinforced current Plan of Care, including self-management and medication regimen Patient's 'Red Flags': 1. Increased cough with yellow/green sputum 2. Change in mental status/confusion 3. No bm in 24 hrs Patient Needs to Remember: Call [facility] at with any new or worsening health concerns or problems, red flag symptoms. Referrals Needed: Other none Follow Up: Is there cellular connectivity/connectivity in the home? Yes Does the patient have internet in the home? Yes Patient encouraged to call the intake phone number for all urgent but not emergent issues. Is the patient new to [facility] within the last 30 days? No, Assess appropriateness for upcoming telehealth visits. Cancel telehealth visits & schedule home visit with care steam train driver(s)as indicated. Provider is in agreement with Plan of Care: Yes Scheduled to follow up with patient next week with provider, following week with RNCM. July Poe RN 11/03/2022 11:24 AM documented in this encounter Plan of Treatment Upcoming Encounters Date Type Specialty Care Team Description 11/04/2022 Hem/Onc Treatment Hematology Oncology [place], Chair 10 Hem On[address] [place] [address] 11/04/2022 Office Visit Pharmacy Pharmacist2, [facility] Sp 200 [place] [address] 11/07/2022 Office Visit Family Medicine Vanita Dunn MD [address] [place] [address] 11/09/2022 Home Visit [facility] July Poe RN [address] [place] [address] 11/21/2022 [facility]medicine [facility]sey [facility]NP [address] [facility] [address] Kaylee Khan, Community Health Farrowing Manager [address] [place] [address] 12/06/2022 Office Visit Gastroenterology Lyssa Stout CRNP [address] [place] [address] 12/08/2022 Home Visit [facility] lAeyda Campos PA-C [address] [place] [address] 12/08/2022 Office Visit Hematology Oncology Tono Sanchez MD 200 [facility], [place] [address] 02/10/2023 Office Visit Sleep Disorders Love Francisco, DO [address] [place] [address] 03/01/2023 PulmDiagnostic Pulmonary Function [place], [address]ft [address] [place] [address] Pending Results Name Type Priority Associated Diagnoses Date /Time CULTURE, URINE, QUANTITATIVE Lab Routine UTI (urinary tract infection) 11/03/2022 12:15 PM EST Scheduled Procedures Name [...] this encounter Medical Devices Implanted Type Area Compilation Clerk Device Identifier Shelf Expiration Date Model / Serial / Lot Microtech Sure Clip Implanted:Qty: 2 on 06/03/2020 by Janis Hatch DO at OR [facility] Clip N/A: Colon 04/21/2022 [facility]-F-26-2 35-C-R / / [id number] documented as of this encounter Visit Diagnoses Diagnosis UTI (urinary tract infection)- Primary Urinary tract infection, site not specified documented in this encounter Additional Health Concerns Infection Onset Date Last Indicated Resolved Time MRSA 09/17/2022 09/17/2022 documented as of this encounter Advance Directives Documents on File Type Date Recorded 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 No Code Status History Code Status Date Activated Date Inactivated Comments Full Code 12/27/2021 2:50 PM 12/27/2021 8:02 PM This order reflects the patients wishes and were consensually agreed upon. Question Answer Comments Discussion of Advance Directives occurred with: Not Discussed Does the patient have a Living Will? No Does the patient have Health Care Power of Tar Boiler? No Full Code 03/31/2021 8:57 PM 04/03/2021 [...] File Name Relationship [facility] Communication Syed Bustos Spouse Emergency Contact Care Teams Director Of Patient Safety Relationship Specialty Start Date End Date Vanita Dunn MD [address] [place] [address] PCP - General Family Medicine 03/16/21 documented as of this encounter
--- OUTSIDE RECORDS SUMMARY | 2023-05-10 17:15 | External Medical Summary | Summary of Care ---
Author Name Unknown Organization [place] [address] Care Team Providers Care Supervisor Public Health Nursing Name Role Phone Vanita Dunn MD Primary Care Provid er Reason for Visit * Reason Comments Outpatient Testing Encounter Details Date Type Department Care Team Description 11/03/2022 Laboratory Laboratory, [place] [address] [place] [address] [address], Specimen Drop Off [address] [address] Acute cystitis without hematuria Allergies Active Allergy Reactions Severity Noted Date Comments Adhesive Tape Itching 04/29/2020 Penicillins Rash 02/12/2008 Penicillin G 07/20/2018 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 documented as of this encounter (statuses as of 11/03/2022) Medications Medication Sig Dispensed Refills Start Date End Date Status nystatin (NYSTOP) 424322 UNIT/GM powder Apply topically to affected area 3 times a day. 60 g 1 10/16/2019 Active Dexcom G6 Police Justice Device Use as directed. To test blood sugars 4 times a day Dx E11.9 1 Each 0 09/14/2020 Active Dexcom G6 Transmitter Use as directed. To test blood sugars 4 times a day. Change every 90 days. Dx E11.9 1 Each 3 09/14/2020 Active OneTouch Verio In Vitro Strip (Glucose Blood) TESTING once daily 100 Strip 3 10/29/2020 Active OneTouch Delica Plus [id number] TESTING once daily 100 Each 3 10/29/2020 [...] oxyCODONE HCl 5 MG Oral Tablet (Oxy IR)Indications:Senior Buyer Planner kai pain syndrome Take 1 Tablet by [...] pain 01/24/2012 01/17/2017 Genetic Sleep Disorder Research Other*[id number] 05/13/2011 04/07/2016 Obstructive sleep apnea 01/18/2011 12/27/19 [...] (Prevnar) 05/02/2019 Pneumococcal Conjugate Vacci ne, 20-valent ([id number]) 10/21/2022 Pneumococcal Polysaccharide PPV23 (Pneumovax) 06/01/2010 Seasonal [...] Home July Poe RN [address] [place] [address] 11/04/2022 Hem/Onc Treatment Hematology Oncology [place], Chair 10 Hem Onc [facility] [address] [place] [address] 11/04/2022 Office Visit Pharmacy Pharmacist2, [facility] 200 [place] [address] 11/07/2022 Office Visit Family Medicine Vanita Dunn MD [address] [place] [address] 11/09/2022 Home Visit [facility] July Poe RN [address] [place] [address] 11/21/2022 Telemedicine [facility] [address] [facility] [address] Kaylee Khan, Community Health Associate Field Service Engineer [address] [place] [address] 12/06/2022 Office Visit Gastroenterology Lyssa Stout CRNP [address] [place] [address] 12/08/2022 Home Visit [facility] Aleyda Campos PA-C [address] [place] [address] 12/08/2022 Office Visit Hematology Oncology Tono Sanchez MD 200 [place] [address] 02/10/2023 Office Visit Sleep Disorders Love Francisco, DO [address] [place] [address] 03/01/2023 PulmDiagnostic Pulmonary Function [place], Pft [address] [place] [address] Pending Results Name Type Priority Associated Diagnoses [...] this encounter Medical Devices Implanted Type Area Pit Furnace Melter Device Identifier Shelf Expiration Date Model / Serial / Lot Microtech Sure Clip Implanted:Qty: 2 on 06/03/2020 by Janis Hatch DO at OR [facility] Clip N/A: Colon 04/21/2022 [facility]-F-26-2 35-C-R / / [id number] documented as of this encounter Visit Diagnoses Diagnosis Acute cystitis without hematuria Acute cystitis documented in this encounter Additional Health Concerns Infection Onset Date Last Indicated Resolved Time MRSA 09/17/2022 09/17/2022 documented as of this encounter Advance Directives Documents on File Type Date Recorded 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 No Code Status History Code Status Date Activated Date Inactivated Comments Full Code 12/27/2021 2:50 PM 12/27/2021 8:02 PM This order reflects the patients wishes and were consensually agreed upon. Question Answer Comments Discussion of Advance Directives occurred with: Not Discussed Does the patient have a Living Will? No Does the patient have Health Care Power of Piping Blocker? No Full Code 03/31/2021 8:57 PM 04/03/2021 [...] Bustos Spouse Emergency Contact Care Teams Supervisor Public Health Nursing Relationship Specialty Start Date End Date Vanita Dunn MD [address] [place] [address] PCP - General Family Medicine 03/16/21 documented as of this encounter
--- OUTSIDE RECORDS SUMMARY | 2023-05-10 17:15 | External Medical Summary | Summary of Care ---
Author Name Unknown Organization [place] [address] Care Team Providers Care Tool Setter Name Role Phone Vanita Dunn MD Primary Care Provid er Reason for Visit * Reason Comments Application Lead Documentation Encounter Details Date Type Department Care Team Description 11/03/2022 Application Lead [facility], [place] [address] [place] [address] Preethi Rivera, TIMBER FRAMER HELPER [address] [place] [address] Allergies Active Allergy Reactions Severity Noted Date Comments Adhesive Tape Itching 04/29/2020 Penicillins Rash 02/12/2008 Penicillin G 07/20/2018 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 documented as of this encounter (statuses as of 11/03/2022) Medications Medication Sig Dispensed Refills Start Date End Date Status nystatin (NYSTOP) 618293 UNIT/GM powder Apply topically to affected area 3 times a day. 60 g 1 10/16/2019 Active Dexcom G6 Harness Rigger Device Use as directed. To test blood sugars 4 times a day Dx E11.9 1 Each 0 09/14/2020 Active Dexcom G6 Transmitter Use as directed. To test blood sugars 4 times a day. Change every 90 days. Dx E11.9 1 Each 3 09/14/2020 Active OneTouch Verio In Vitro Strip (Glucose Blood) TESTING once daily 100 Strip 3 10/29/2020 Active OneTouch Delica Plus [id number] TESTING once daily 100 Each 3 10/29/2020 [...] goal of less than 7.0% ([facility]) inject 4.5mg (1 pen) under [...] goal of less than 7.0% ([facility]) USE TO INJECT INSULIN FOUR [...] oxyCODONE HCl 5 MG Oral Tablet (Oxy IR)Indications:Dialysis Technician kai pain syndrome Take 1 Tablet [...] a jail plan is made -continue lexapro Impaired mobility [...] pain 01/24/2012 01/17/2017 Genetic Sleep Disorder Research Other*[id number] 05/13/2011 04/07/2016 Obstructive sleep apnea 01/18/2011 12/27/19 [...] (Prevnar) 05/02/2019 Pneumococcal Conjugate Vacci ne, 20-valent ([id number]) 10/21/2022 Pneumococcal Polysaccharide PPV23 (Pneumovax) 06/01/2010 Seasonal [...] encounter Progress Notes * CHRISSY Velázquez - 11/03/2022 9:39 AM EST This worker was consulted by [facility]. Caregivers. Chart was reviewed. This worker placed a call to Shaina at [phone]. Shaina reports that she had a caregiver 2 days ago and the CG never showed up again. [facility] is supposed to be working the caregiver hours through the agency to be covered. This worker placed a call to [facility] at [phone]. Asked to speak to Aleyda BARNES. Unable to connect with Aleyda at this time. This worker left voicemail requesting return phone call to this worker in regards to Shaina. CHRISSY Velázquez Medical Data Entry Clerk [facility] documented in this encounter Plan of Treatment Upcoming Encounters Date Type Specialty Care Team Description 11/03/2022 Home Visit [facility] July Poe RN [address] [place] [address] 11/04/2022 Hem/Onc Treatment Hematology Oncology [place], Chair 10 Hem Onc [place] [address] [facility] [address] 11/04/2022 Office Visit Pharmacy Pharmacist2, [facility] [address] [place] [address] 11/07/2022 Office Visit Family Medicine Vanita Dunn MD [address] [place] [address] 11/09/2022 Home Visit [facility] July Poe RN [address] [place] [address] 11/21/2022 Telemedicine [facility] Eleni Kelsey CRNP [address] [facility] [place] [address] Kaylee Khan, Community Health Stock Mixer [address] [place] [address] 12/06/2022 Office Visit [facility]astroenterology [facility] [address] 12/08/2022 [facility] Visit [facility] Aleyda Campos PA-C [address] [facility] [address] 12/08/2022 Office Visit Hematology Oncology Tono Sanchez MD [address] [facility] [place] [address] 02/10/2023 Office Visit Sleep Disorders Love Francisco, 132 [facility] [place] [address] 03/01/2023 PulmDiagnostic Pulmonary Function [place], Pft [address] [facility] [place] [address] Scheduled Procedures Name Priority Associated Diagnoses Date/Ti [...] this encounter Medical Devices Implanted Type Area Rug Measurer Device Identifier Shelf Expiration Date Model / Serial / Lot Microtech Sure Clip Implanted:Qty: 2 on 06/03/2020 by Janis Hatch DO at OR [facility] Clip N/A: Colon 04/21/2022 [facility]-F-26-2 35-C-R / / [id number] documented as of this encounter Additional Health Concerns Infection Onset Date Last Indicated Resolved Time MRSA 09/17/2022 09/17/2022 documented as of this encounter Advance Directives Documents on File Type Date Recorded Patient Bank Vault Custodian Expl anation Advance Directives and Living Will 04/29/2021 ADVANCE DIRECTIVE / LIVING WILL LIVING WILL AND HEALTH CARE POA Power of Lokie Engineer 04/29/2021 POWER OF A [facility] [...] the patient have Health Care Power of Lokie Engineer? No Code Status History Code Status Date Activated Date Inactivated Comments Full Code 12/27/2021 2:50 PM 12/27/2021 8:02 PM This order reflects the patients wishes and were consensually agreed upon. Question Answer Comments Discussion of Advance Directives occurred with: Not Discussed Does the patient have a Living Will? No Does the patient have Health Care Power of Lokie Engineer? No Full Code 03/31/2021 8:57 PM [...] Agents on File Name Relationship Healthcare Agent [facility] p Communication Syed Bustos Spouse Emergency Contact Care Teams Tool Setter Relationship Specialty Start Date End Date Vanita Dunn MD [address] [place] [address] PCP - General Family Medicine 03/16/21 documented as of this encounter
--- OUTSIDE RECORDS SUMMARY | 2023-05-10 17:15 | External Medical Summary ---
Author Name Unknown Address Unknown Organization K01:[facility] [place] [address] [facility] [place] [address] Laboratory Report Ordering Provider Test Date Status LITA ALBERTO 11/03/2022 12:15:00 Final Observation Date Value Abnormality Reference (Units ) Status Color of Urine by Auto 11/03/2022 12:15:00 Yellow Colorless, Light Yellow, Yellow, Dark Yellow Final Clarity, Urine 11/03/2022 12:15:00 Slightly Cloudy Abnormal Clear Final Glucose [Mass/volume] in Urine by Automated test strip 11/03/2022 12:15:00 Negative Negative (mg/dL) Final Bilirubin.total [Presence] in Urine by Automated test strip 11/03/2022 12:15:00 Negative Negative Final Ketones [Mass/volume] in Urine by Automated test strip 11/03/2022 12:15:00 Negative Negative (mg/dL) Final Specific gravity, Urine 11/03/2022 12:15:00 1.025 1.003-1.030 Final Hemoglobin [Presence] in Urine by Automated test strip 11/03/2022 12:15:00 Large Abnormal Negative Final pH, Urine 11/03/2022 12:15:00 6.5 5.0-7.5 (Units) Final Protein [Mass/volume] in Urine by Automated test strip 11/03/2022 12:15:00 30 Abnormal Negative (mg/dL) Final Urobilinogen [Mass/volume] in Urine by Automated test strip 11/03/2022 12:15:00 Normal Normal (mg/dL) Final Nitrite [Presence] in Urine by Automated test strip 11/03/2022 12:15:00 Negative Negative Final Leukocyte esterase [Presence] in Urine by Automated test strip 11/03/2022 12:15:00 Large Abnormal Negative Final RBC, Urine 11/03/2022 12:15:00 50+ Abnormal 0-2 (/HPF) Final WBC, Urine 11/03/2022 12:15:00 50+ Abnormal 0-2 (/HPF) Final Bacteria [#/area] in Urine sediment by Microscopy high power field 11/03/2022 12:15:00 101-150 Abnormal 0-25 (/HPF) Final Calcium oxalate crystals [#/area] in Urine sediment by Microscopy high power field 11/03/2022 12:15:00 30-49 Abnormal None (/HPF) Final Hyaline casts, Urine 11/03/2022 12:15:00 1-4 Abnormal None (/LPF) Final Yeast [#/area] in Urine sediment by Microscopy high power field 11/03/2022 12:15:00 Present Abnormal None (/HPF) Final Performing Location [facility] [place] [address] [facility] [address]
--- OUTSIDE RECORDS SUMMARY | 2023-05-10 17:15 | External Medical Summary | Summary of Care ---
Author Name Unknown Organization [place] [address] Care Team Providers Care Restaurant Culinary Manager Name Role Phone Vanita Dunn MD Primary Care Provid er Reason for Visit * Reason Comments Outpatient Testing Encounter Details Date Type Department Care Team Description 11/03/2022 Laboratory Laboratory, [place] [address] [place] [address] [address], Specimen Drop Off [address] [address] Acute cystitis without hematuria Allergies Active Allergy Reactions Severity Noted Date Comments Adhesive Tape Itching 04/29/2020 Penicillins Rash 02/12/2008 Penicillin G 07/20/2018 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 documented as of this encounter (statuses as of 11/03/2022) Medications Medication Sig Dispensed Refills Start Date End Date Status nystatin (NYSTOP) 215230 UNIT/GM powder Apply topically to affected area 3 times a day. 60 g 1 10/16/2019 Active Dexcom G6 Patient Services Representative Device Use as directed. To test blood sugars 4 times a day Dx E11.9 1 Each 0 09/14/2020 Active Dexcom G6 Transmitter Use as directed. To test blood sugars 4 times a day. Change every 90 days. 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 kai pain syndrome Take 1 Tablet by [...] a usp plan is made -continue lexapro Impaired mobility [...] pain 01/24/2012 01/17/2017 Genetic Sleep Disorder Research Other*[id number] 05/13/2011 04/07/2016 Obstructive sleep apnea 01/18/2011 12/27/19 [...] (Prevnar) 05/02/2019 Pneumococcal Conjugate Vacci ne, 20-valent ([id number]) 10/21/2022 Pneumococcal Polysaccharide PPV23 (Pneumovax) 06/01/2010 Seasonal [...] Home July Poe RN [address] [place] [address] UTI (urinary tract infection)* 11/04/2022 Hem/Onc Treatment Hematology Oncology [place], Chair 10 Hem Onc [facility] 200 [facility] [place] [address] 11/04/2022 Office Visit Pharmacy Pharmacist2, [facility] 200 [place] [address] 11/07/2022 Office Visit Family Medicine Vanita Dunn MD [address] [place] [address] 11/09/2022 Home Visit [facility] July Poe RN [address] [place] [address] 11/21/2022 Telemedicine [facility] Eleni Kelsey CRNP [address] [facility] [address] Kaylee Khan, Community Health Well Logging Captain Mud Analysis [address] [place] [address] 12/06/2022 Office Visit Gastroenterology Lyssa Stout CRNP [address] [place] [address] 12/08/2022 Home Visit [facility] Aleyda Campos PA-C [address] [place] [address] 12/08/2022 Office Visit Hematology Oncology Tono Sanchez MD 200 [place] [address] 02/10/2023 Office Visit Sleep Disorders Love Francisco, DO [address] [place] [address] 03/01/2023 PulmDiagnostic Pulmonary Function [place], Pft [address] [place] [address] Pending Results Name Type Priority Associated Diagnoses [...] this encounter Medical Devices Implanted Type Area Reheater Device Identifier Shelf Expiration Date Model / Serial / Lot Microtech Sure Clip Implanted:Qty: 2 on 06/03/2020 by Janis Hatch DO at OR [facility] Clip N/A: Colon 04/21/2022 [facility]-F-26-2 35-C-R / / [id number] documented as of this encounter Visit Diagnoses Diagnosis UTI (urinary tract infection)- Primary Urinary tract infection, site not specified Acute cystitis without hematuria Acute cystitis documented in this encounter Additional Health Concerns Infection Onset Date Last Indicated Resolved Time MRSA 09/17/2022 09/17/2022 documented as of this encounter Advance Directives Documents on File Type Date Recorded 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 No Code Status History Code Status Date Activated Date Inactivated Comments Full Code 12/27/2021 2:50 PM 12/27/2021 8:02 PM This order reflects the patients wishes and were consensually agreed upon. Question Answer Comments Discussion of Advance Directives occurred with: Not Discussed Does the patient have a Living Will? No Does the patient have Health Care Power of Hanger? No Full Code 03/31/2021 8:57 PM 04/03/2021 [...] Agents on File Name Relationship [facility] Syed Bustos Spouse Emergency Contact Care Teams Restaurant Culinary Manager Relationship Specialty Start Date End Date Vanita Dunn MD [address] [place] [address] PCP - General Family Medicine 03/16/21 documented as of this encounter
--- OUTSIDE RECORDS SUMMARY | 2023-05-10 17:15 | External Medical Summary ---
Author Name Unknown Address Unknown Organization K01[place] [place] [address] [place] [address] Laboratory Report Ordering Provider Test Date Status ODALYS SOTELO 11/03/2022 12:15:00 Final Observation Date Value Abnormality Reference (Units) Status Bacteria identified in Unspecified specimen by Culture 11/03/2022 12:15:00 No significant growth Final Performing Location LABORATORY [facility] - [address] [place] [address]
--- OUTSIDE RECORDS SUMMARY | 2023-05-10 17:16 | External Medical Summary | Summary of Care ---
Author Name Unknown Organization [facility] Address [facility] [place] [address] Care Team Providers Care Artificial Plastic Eye Maker Name Role Phone Vanita Dunn MD Primary Care Provid er Reason for Visit * Reason Onset Date Comments Appointment 11/01/2022 Encounter Details Date Type Department Care Team Description 11/01/2022 Telephone [facility], [facility] [address] [place] [address] [facility] [address] [facility] [place] [address] Appointment Allergies Active Allergy Reactions Severity Noted Date Comments Adhesive Tape Itching 04/29/2020 Penicillins Rash 02/12/2008 Penicillin G 07/20/2018 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 documented as of this encounter (statuses as of 11/01/2022) Medications Medication Sig Dispensed Refills Start Date End Date Status nystatin (NYSTOP) 137911 UNIT/GM powder Apply topically to affected area 3 times a day. 60 g 1 10/16/2019 Active Dexcom G6 Smoke Jumper Device Use as directed. To test blood sugars 4 times a day Dx E11.9 1 Each 0 09/14/2020 Active Dexcom G6 Transmitter Use as directed. To test blood sugars 4 times a day. Change every 90 days. 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 kai pain syndrome Take 1 Tablet by [...] as of this encounter (statuses as of 11/01/2022) Active Problems Problem Noted Date Aspiration pneumonia [...] a mcc plan is made -continue lexapro Impaired mobility [...] as of this encounter (statuses as of 11/01/2022) Resolved Problems Problem Noted Date Resolved Date [...] pain 01/24/2012 01/17/2017 Genetic Sleep Disorder Research Other*[id number] 05/13/2011 04/07/2016 Obstructive sleep apnea 01/18/2011 12/27/19 [...] as of this encounter (statuses as of 11/01/2022) Immunizations Name Administration Dates Next Due COVID-19 mRNA, LNP-s, No Pre serve, 2-Dose Series (Moderna) 01/05/2022,07/26/2021,12/21/2020,11/09 HEP A - Hepatitis A (Adult > 18 yrs) 09/24/2018, 03/26/2018 Hepatitis B, 20+ yrs 09/24/2018,04/23/2018,03/26 Pneumococcal Conjugate Vacc, 13 Valent (Prevnar) 05/02/2019 Pneumococcal Conjugate Vacci ne, 20-valent ([id number]) 10/21/2022 Pneumococcal Polysaccharide PPV23 (Pneumovax) 06/01/2010 Seasonal [...] original note were not included. Call to [facility] spoke with Maggie gave verbal order for chest x-ray. She stated she will schedule x-ray for tomorrow 11/02/22. Claim# [id number] Faxed order and pt demograhics to [facility] at [phone] Call to [facility] spoke with Alejandro requested an updated med list be faxed to [facility] at [phone]. Per Alejandro she will fax to us at requested number Scheduled [facility] KATELYN Poe for 11/03 @ 4:00 pm [...] Encounters Date Type Specialty Care Team Description 11/02/2022 Office Visit Pharmacy Pharmacist1, [facility] [address] [facility] [place] [address] 11/03/2022 Home Visit [facility] July Poe RN 132 [facility] [place] [address] 11/04/2022 Hem/Onc Treatment Hematology Oncology [place], [address] On[address] [facility] [place] [address] 11/07/2022 Office Visit Family Medicine [facility] [address] [facility] [address] 11/09/2022 Home Visit [facility] July Poe, [facility] [address] [place] [address] 11/21/2022 Telemedicine [facility] Eleni Kelsey CRNP [address] [facility] [place] [address] Kaylee Khan, Community Health Clinical Services Manager [address], [place] [id number] 12/06/2022 Office Visit Gastroenterology Lyssa Stout CRNP [address] [place] [address] 12/08/2022 Home Visit [facility] Aleyda Campos PA-C [address] [place] [address] 12/08/2022 Office Visit Hematology Oncology Tono Sanchez MD [address] [place] [address] 02/10/2023 Office Visit Sleep Disorders Love Francisco DO [address] [place] [address] 03/01/2023 PulmDiagnostic Pulmonary Function [place], Pft [address] [place] [address] Scheduled Orders Name Type Priority Associated Diagnoses Orde r Schedule URINALYSIS WITH MICROSCOPIC EXAM Lab Routine Acute cystitis without hematuria Expected: 11/01/2022 (Approximate), Expires: 11/01/2023 XR CHEST 2 VIEWS Medical Imaging Routine Aspiration pneumonia, unspecified aspiration pneumonia type, unspecified laterality, unspecified part of lung (HCC) Ordered: 11/01/2022 Scheduled Procedures Name Priority Associated Diagnoses Date/Ti [...] 11/16/2022 05/19/2022, 01/09, 08/19/2021, Additional history exists Alb / Creat Ratio 03/30/2023 03/30/2022, , 02/03/2017, Additional history exists TSH FOR THYROID [...] this encounter Medical Devices Implanted Type Area Sorority Supervisor Device Identifier Shelf Expiration Date Model / Serial / Lot Microtech Sure Clip Implanted:Qty: 2 on 06/03/2020 by Janis Hatch DO at OR [facility] Clip N/A: Colon 04/21/2022 [facility]-F-26-2 35-C-R / / [id number] documented as of this encounter Visit Diagnoses Diagnosis Aspiration pneumonia, unspecified aspiration pneumonia type, unspecified laterality, unspecified part of lung (HCC)- Primary Acute cystitis without hematuria Acute cystitis documented in this encounter Additional Health Concerns Infection Onset Date Last Indicated Resolved Time MRSA 09/17/2022 09/17/2022 documented as of this encounter Advance Directives Documents on File Type Date Recorded Patient Teletype Or Varitype Keyboard Operator Expl anation Advance Directives and Living Will 04/29/2021 ADVANCE DIRECTIVE / LIVING WILL LIVING WILL AND HEALTH CARE POA Power of Miller Supervisor 04/29/2021 POWER OF A TTORNEY HEALTH [...] the patient have Health Care Power of Miller Supervisor? No Code Status History Code Status Date Activated Date Inactivated Comments Full Code 12/27/2021 2:50 PM 12/27/2021 8:02 PM This order reflects the patients wishes and were consensually agreed upon. Question Answer Comments Discussion of Advance Directives occurred with: Not Discussed Does the patient have a Living Will? No Does the patient have Health Care Power of Miller Supervisor? No Full Code 03/31/2021 8:57 PM [...] Syed Bustos Spouse Emergency Contact Care Teams Artificial Plastic Eye Maker Relationship Specialty Start Date End Date Vanita Dunn MD [address] [place], [place] [id number] PCP - General Family Medicine 03/16/21 documented as of this encounter
--- OUTSIDE RECORDS SUMMARY | 2023-05-10 17:16 | External Medical Summary | Summary of Care ---
Author Name Unknown Organization [place] [address] Care Team Providers Care Supervisor Central Supply Name Role Phone Vanita Dunn MD Primary Care Provid er Reason for Visit * Reason Onset Date Comments Appointment Canceled 11/02/2022 Encounter Details Date Type Department Care Team Description 11/02/2022 Telephone [facility] [address] [place] [address] Alexandra Caceres DO [address] [place] [address] Appointment Canceled Allergies Active Allergy Reactions Severity Noted Date Comments Adhesive Tape Itching 04/29/2020 Penicillins Rash 02/12/2008 Penicillin G 07/20/2018 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 documented as of this encounter (statuses as of 11/02/2022) Medications Medication Sig Dispensed Refills Start Date End Date Status nystatin (NYSTOP) 052590 UNIT/GM powder Apply topically to affected area 3 times a day. 60 g 1 10/16/2019 Active Dexcom G6 Textile Chemist Device Use as directed. To test blood sugars 4 times a day Dx E11.9 1 Each 0 09/14/2020 Active Dexcom G6 Transmitter Use as directed. To test blood sugars 4 times a day. Change every 90 days. 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 kai pain syndrome Take 1 Tablet [...] as of this encounter (statuses as of 11/02/2022) Active Problems Problem Noted Date Aspiration pneumonia [...] a [facility] plan is made -continue lexapro Impaired mobility [...] as of this encounter (statuses as of 11/02/2022) Resolved Problems Problem Noted Date Resolved Date [...] pain 01/24/2012 01/17/2017 Genetic Sleep Disorder Research Other*[id number] 05/13/2011 04/07/2016 Obstructive sleep apnea 01/18/2011 12/27/19 [...] as of this encounter (statuses as of 11/02/2022) Immunizations Name Administration Dates Next Due COVID-19 mRNA, LNP-s, No Pre serve, 2-Dose Series (Moderna) 01/05/2022,07/26/2021,12/21/2020,11/09 HEP A - Hepatitis A (Adult > 18 yrs) 09/24/2018, 03/26/2018 Hepatitis B, 20+ yrs 09/24/2018,04/23/2018,03/26 Pneumococcal Conjugate Vacc, 13 Valent (Prevnar) 05/02/2019 Pneumococcal Conjugate Vacci ne, 20-valent ([id number]) 10/21/2022 Pneumococcal Polysaccharide PPV23 (Pneumovax) 06/01/2010 Seasonal [...] Miscellaneous Notes * Telephone Encounter - Dinorah Lose, GUIDANCE COUNSELOR - 11/02/2022 11:19 AM EST Patient's , Syed, called hem/onc office. He will not be in to appointment with pharmacy for dexcom. STEWART Caceres, Pharmacy documented in this encounter Plan of Treatment Upcoming Encounters Date Type Specialty Care Team Description 11/02/2022 Office Visit Pharmacy Pharmacist1, [facility] [address] [place] [address] 11/03/2022 Home Visit [facility] July Poe RN [address] [place] [address] 11/04/2022 Hem/Onc Treatment Hematology [address] [place], [address] Onc [address] [place] [address] 11/07/2022 Office Visit Family Medicine Vanita Dunn MD [address] [place] [address] 11/09/2022 Home Visit [facility] July Poe RN [address] [place] [address] 11/21/2022 Telemedicine [facility] Eleni Kelsey CRNP [address] [facility] [place] [address] Kaylee Khan, Community Health Central Station Operator [address] [place] [address] 12/06/2022 Office Visit Gastroenterology Lyssa Stout CRNP [address] [place] [address] 12/08/2022 [facility] Visit [facility]pos [facility]C [facility] [address] 12/08/2022 Office Visit Hematology Oncology Tono Sanchez MD 200 [facility] [place] [address] 02/10/2023 Office Visit Sleep Disorders Love Francisco, [address] [facility] [place] [address] 03/01/2023 PulmDiagnostic Pulmonary Function [place], [address]ft [address] [facility] [place] [address] Scheduled Procedures Name Priority Associated Diagnoses Date/Ti [...] this encounter Medical Devices Implanted Type Area Spine Nurse Device Identifier Shelf Expiration Date Model / Serial / Lot Microtech Sure Clip Implanted:Qty: 2 on 06/03/2020 by Janis Hatch DO at OR [facility] Clip N/A: Colon 04/21/2022 [facility]-F-26-2 35-C-R / / [id number] documented as of this encounter Additional Health Concerns Infection Onset Date Last Indicated Resolved Time MRSA 09/17/2022 09/17/2022 documented as of this encounter Advance Directives Documents on File Type Date Recorded Patient Business Process Lead Expl anation Advance Directives and Living Will 04/29/2021 ADVANCE DIRECTIVE / LIVING WILL LIVING WILL AND HEALTH CARE POA Power of Hvac Installation Technician 04/29/2021 POWER OF A TTORNEY HEALTH [...] the patient have Health Care Power of Hvac Installation Technician? No Code Status History Code Status Date Activated Date Inactivated Comments Full Code 12/27/2021 2:50 PM 12/27/2021 8:02 PM This order reflects the patients wishes and were consensually agreed upon. Question Answer Comments Discussion of Advance Directives occurred with: Not Discussed Does the patient have a Living Will? No Does the patient have Health Care Power of Hvac Installation Technician? No Full Code 03/31/2021 8:57 PM [...] on File Name Relationship [facility] Syed Bustos Spouse Emergency Contact Care Teams Supervisor Central Supply Relationship Specialty Start Date End Date Vanita Dunn MD [address] [place] [facility] [place] [address] PCP - General Family Medicine 03/16/21 documented as of this encounter
--- OUTSIDE RECORDS SUMMARY | 2023-05-10 17:16 | External Medical Summary | Summary of Care ---
Author Name Unknown Organization [place] [address] Care Team Providers Care Dialysis Clinical Manager Name Role Phone Vanita Dunn MD Primary Care Provid er Reason for Visit * Reason Comments [facility]: Maintenance Encounter Details Date Type Department Care Team Description 11/01/2022 Telemedicine [facility], [facility] [address] [facility] [place] [address] Aleyda Campos PA-C [address] [place] [address] Kaylee Khan, Community Health Manager Group Home [address] [place] [address] Chronic diastolic (congestive) heart failure (HCC)*; HTN, goal below 130/80; THAD on CPAP; Iron deficiency anemia due to chronic blood loss; Other cirrhosis of liver (HCC); Type 2 diabetes mellitus with hemoglobin A1c goal of less than 8.0% (HCC); Restrictive lung disease; Acute cystitis with hematuria; Aspiration pneumonia, unspecified aspiration pneumonia type, unspecified laterality, unspecified part of lung (HCC); Pancytopenia (HCC); Major depressive disorder, recurrent, moderate (HCC); Generalized anxiety disorder Allergies Active Allergy Reactions Severity Noted Date Comments Adhesive Tape Itching 04/29/2020 Penicillins Rash 02/12/2008 Penicillin G 07/20/2018 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 documented as of this encounter (statuses as of 11/01/2022) Medications Medication Sig Dispensed Refills Start Date End Date Status nystatin (NYSTOP) 437332 UNIT/GM powder Apply topically to affected area 3 times a day. 60 g 1 10/16/2019 Active Dexcom G6 Money Market Clerk Device Use as directed. To test blood sugars 4 times a day Dx E11.9 1 Each 0 09/14/2020 Active Dexcom G6 Transmitter Use as directed. To test blood sugars 4 times a day. Change every 90 days. 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 pain syndrome Take 1 Tablet by [...] a longterm plan is made -continue lexapro Impaired mobility [...] 05/05/2020 Cellulitis of right toe 04/18/2020 12/01/19 Cellulitis of right lower extremity 04/15/2020 11/30/2020 [...] pain 01/24/2012 01/17/2017 Genetic Sleep Disorder Research Other*[id number] 05/13/2011 04/07/2016 Obstructive sleep apnea 01/18/2011 12/27/19 [...] (Prevnar) 05/02/2019 Pneumococcal Conjugate Vacci ne, 20-valent ([id number]) 10/21/2022 Pneumococcal Polysaccharide PPV23 (Pneumovax) 06/01/2010 Seasonal [...] Sign Reading Time Taken Comments Blood Pressure 104/60 11/01/2022 9:42 AM EST Pulse 72 11/01/2022 9:42 AM EST Temperature 36.6 C (97.8 F) 11/01/2022 9:42 AM ES T Respiratory Rate 18 11/01/2022 9:42 AM EST Oxygen Saturation 94% 11/01/2022 9:42 AM EST Inhaled Oxygen Concentration - - [...] Progress Notes * Aleyda Campos PA-C - 11/01/2022 10:33 AM EST Images from the original note were not included. [facility] Problem Oriented Charting Provider Visit Date: 11/01/2022 Time: 10:33 AM [facility] Sub-Program: Focused Care Management (3-9 months) [facility] Episode Start Date: Noted: 09/16/2021 Assessment and Plan Chronic diastolic (congestive) heart failure (HCC) Assessment & Plan: Not doing daily weights. Taking "a fluid pill." Unsure of meds. Edema in legs seems to be at baseline HTN, goal below 130/80 Assessment & Plan: BP stable -continue isosorbide, nadolol THAD on CPAP Assessment & Plan: compliant Iron deficiency anemia due to chronic blood loss Assessment & Plan: Last hgb 11.2 10/14/22. stable Other cirrhosis of liver (HCC) Assessment & Plan: Per pt and significant other, taking lactulose at least BID. BM several times per day Type 2 diabetes mellitus with hemoglobin A1c goal of less than 8.0% (HCC) Assessment & Plan: Vague on what blood sugars have been running. "high" today Continue current regimen: lantus 60 u HS, novolog 35 u with breakfast, 39 u at lunch, 55 u at dinner. Brice adjusts prn. Trulicity, metformin Restrictive lung disease Assessment & Plan: Has not been using nebs. Lost top piece. EMILE provided replacement today Agreed to start using nebs again for SOB. Acute cystitis with hematuria Assessment & Plan: Unable to see urine cx from recent hospitalization 10/29 Currently on bactrim. Repeat straight cath UA this week Aspiration pneumonia, unspecified aspiration pneumonia type, unspecified laterality, unspecified part of lung (HCC) Assessment & Plan: Finished flagyl and omnicef from admission 10/19 Still having cough difficulty clearing secretions. Reportedly seen by speech. Recommended thickenedliquids. Pt not compliant. Urged aspiration preventions Additional Medical Decision Making: Shaina's vitals are stable, however her readmission risk is HIGH. Will continue to follow closely. Follow Up: Return in about 4 weeks (around 11/29/2022) for home. | For: home Scheduled appointments in the next 60 days: Future Appointments-next 60 days Date/Time Provider Specialty Dept Phone 11/02/2022 1:40 PM [facility] Pharmacist1 Pharmacy [phone] 11/04/2022 1:00 PM Chair 10 Hem Onc [facility] Hematology Oncology [phone] 11/07/2022 2:00 PM (Arrive by 1:45 PM) Vanita Dunn MD Family Medicine [phone] 11/09/2022 4:00 PM July Poe RN [facility] [phone] 11/21/2022 2:00 PM Kaylee Khan Community Health Manager Group Home; [facility] [phone] 12/06/2022 1:30 PM (Arrive by 1:15 PM) [facility] Gastroenterology [phone] 12/08/2022 1:15 PM (Arrive by 1:00 PM) Tono Sanchez MD Hematology Oncology [phone] 02/10/2023 12:00 PM (Arrive by 11:45 AM) Love Francisco DO Sleep Disorders [phone] 03/01/2023 1:00 PM Pft [place] [facility] [phone] A total of 35 minutes was spent face to face (via video-based telemedicine if designated as a telemedicine visit) Subjective Subjective Is this a Telemedicine Visit? Yes, Patient location: HOME. I was not in a hospital or clinic location. After connecting through televideo, patient was verified with two unique identifiers. Patient (or authorized legal medical center representative) was then informed that this was a Telemedicine visit and being conducted confidentially over secure lines. Methods to assure confidentiality were taken. Patient acknowledged consent and understanding of privacy and security of the Telemedicine visit. The patient agreed to participate. Reason For [facility] Visit: Follow-Up Current Concerns: Shaina Shaw is a 67 year old female [facility] Today's concerns: 1. Breathing/cough/CP: Patient is complaining of a moist cough, difficulty clearing her throat and shortness of breath. This has been going on for approximately 1 month. Admitted 10/19-10/20 for aspiration pneumonia. Finished a course of Omnicef and Flagyl. Speech recommendations nectar thick liquids. Patient has not been compliant with this. She does not care for thickened liquids. I urged her to try to sit up fully while eating and not eat dry food. She was also cautioned on the risks of further aspiration if she is not thickening the liquids. She and her nodded in understanding. She is not currently doing her nebulizer treatments as she has lost a piece of the nebulizer. This was replaced by the EMILE today. Also complained of chest pain last Monday, which led to an emergency department visit. She was discharged home on Bactrim as she was found to have a UTI. No CP today 2. Cirrhosis/mentation: She is taking lactulose twice, sometimes 3 times daily. Frequent bowel movements daily. 3. DM: Sugars have been high."Unable to give me an exact number. Currently, she is getting Lantus 60 units at night, a NovoLog sliding scale with meals and Trulicity once weekly. 4. Meds: Unable to provide a list of medications. Meds on recent d/c summary to not match MAR. Pt is unsure. Message sent to request a list from [facility] pharamcy 5. Disposition: Was talk about possible SNF. ?? Insurance issue Additional Review of Systems All other systems reviewed and are negative. Objective Objective Vitals: 11/01/22 0942 Temp: 36.6 C (97.8 F) Pulse: 72 Resp: 18 SpO2: 94% BP: 104/60 Last Weights: Wt Readings from Last 3 Encounters: 10/13/22 113.4 kg (250 lb) 08/12/22 113.4 kg (250 lb) 05/31/22 113.4 kg (250 lb) Last BPs: BP Readings from Last 4 Encounters: 11/01/22 104/60 10/28/22 110/60 10/21/22 116/68 10/17/22 122/76 Physical Exam HENT: Head: Normocephalic. Eyes: Extraocular Movements: Extraocular movements intact. Cardiovascular: Rate and Rhythm: Normal rate and regular rhythm. Heart sounds: No murmur heard. Pulmonary: Comments: Moist cough noted. No crackles or wheezing audible Abdominal: General: Bowel sounds are normal. Musculoskeletal: Cervical back: Neck supple. Comments: Brawny in appearance. Trace pitting edema BLE Neurological: Mental Status: She is alert and oriented to person, place, and time. Mental status is at baseline. Psychiatric: Mood and Affect: Mood normal. Lab [...] BUN - [facility] mg/dL 17 18 13 Lipid panel results Recent Labs Units 09/14/21 1522 CHOLESTEROL - [facility] mg/dL 101 LDL CHOLESTEROL (CALCULATED) - [facility] mg/dL 46 HDL CHOLESTEROL - [facility] mg/dL 40* TRIGLYCERIDES - [facility] mg/dL 75 CBC results Recent Labs Units 10/14/22 1121 09/07/22 1204 08/30/22 1552 WBC AUTO - [facility] K/uL 3.85* 3.98* 5.26 HGB - [facility] g/dL 11.2* 10.5* 10.3* HCT - [facility] % 35.7* 33.4* 33.2* PLATELET AUTO - [facility] K/uL 75* 70* 63* HbA1c results Recent Labs Units 05/19/22 1449 01/24/22 0834 08/19/21 1619 HEMOGLOBIN A1C - [facility] % 7.4* 6.9* 7.1* Hepatic panel results Recent Labs Units 08/30/22 1552 04/28/22 1421 12/20/21 1448 PROTEIN - [facility] g/dL 6.3 6.5 6.7 BILIRUBIN, TOTAL - [facility] mg/dL 1.8* 1.4* 1.2 ALKALINE PHOSPHATASE - [facility] U/L 106 127 112 AST - [facility] U/L 113* 51* 41* ALT - [facility] U/L 65* 30 25 Medication Review "Bottles Out" medication review not performed today due to pt does not have list. Gets burst packs from [facility]. Requested updated list to be faxed and scanned into chart with medication list reviewed and updated in the EMR as appropriate Pt is [facility] Advance Care Planning Advance Care Planning Vera Information: Emergency Contact (Active): ANDRES SHAW - [facility] - [phone] Aligning Care With What Matters Most: After reviewing the preceding "Discerning What Matters Most" conversation, the following decisions were discussed: Interventions/Choices:: CPR; Intubation/mechanical ventilation; Non-invasive ventilation or BIPAP; Antibiotic therapy; IV hydration; Chemotherapy; Radiation therapy; Surgical procedure; Blood transfusion; Lab draws; Transport; at home; Dialysis (10/04/2022 2:24 PM) CPR decision: : Patient chooses CPR (10/04/2022 2:24 PM) Intubation/Mechanical Ventilation decision: : Patient chooses Intubation/mechanical ventilation (10/04/2022 2:24 PM) Non-invasive ventilation or BIPAP decision: : Patient chooses non-invasive ventilation. Select interventions below (10/04/2022 2:24 PM) Non-Invasive Ventilation Interventions:: Oxygen only; CPAP; BIPAP; NIV (10/04/2022 2:24 PM) Antibiotic therapy decision: : Patient chooses Antibiotic therapy (10/04/2022 2:24 PM) IV hydration decision: : Patient chooses IV hydration (10/04/2022 2:24 PM) Chemotherapy decision:: Patient chooses Chemotherapy (10/04/2022 2:24 PM) Radiation therapy decision: : Patient chooses Radiation therapy (10/04/2022 2:24 PM) Surgical procedure(s) decision: : Patient chooses Surgical procedure (10/04/2022 2:24 PM) Blood transfusion decision: : Patient chooses Blood transfusion (10/04/2022 2:24 PM) Lab draw decision: : Patient chooses Lab draws (10/04/2022 2:24 PM) Transport decision:: Patient chooses Transport (10/04/2022 2:24 PM) Dying at home decision: : Patient chooses Dying at home (10/04/2022 2:24 PM) Dialysis decision: : Patient chooses Dialysis (10/04/2022 2:24 PM) Source: Content from [facility]pecting Choices Program Aleyda Campos PA-C 10:33 AM *Communication sent to PCP (via [employer] if [facility]), [facility] Care Team members,relevant Specialty Care Physicians* * Kaylee Khan [facility] Health Manager Group Home - 11/01/2022 9:55 AM EST Community Health Manager Group Home Visit Date: 11/01/2022 Time: 9:55 AM Name: Shaina Shaw : 1955 Referral Source: Provider Source of Information: Patient Spoken language: Ghanaian Patient can read in Ghanaian: Yes. Sales Service Coordinator needed: No. COVID-19 screening completed: Yes Vitals: Vital signs completed: Yes, vital signs within normal range. BP 104/60 (BP Site: Right Arm, BP Position: Supine) | Pulse 72 | Temp 36.6 C (97.8 F) | Resp 18 | SpO2 94% Condition Changes: Changes in health or social status since last visit: She is in her home a new career development consultant started. On going cough with mucase that she can not get it up and out this gets stuck in the back of her throat She reports she has not been bathed in several weeks.Education provided to career development consultant on bed bath for patient . SOB trouble swallowing Denied chest pain BSG running in the upper 200-300 The patient has new concerns since last visit: Yes, getting a good bath getting the mucase out Goals Feel better Progress towards goals since last visit: Feeling ok Medications: Medication review completed? No, . Does the patient have barriers to medication adherence? No. Has not been using nebulizer Patient reports difficulty paying for medications or might in the future: No. Telehealth: This is a telehealth visit: Yes. Type of telehealth visit: Transition of Care Visit conducted with: Physician/AP Symptoms Surveys and Evaluations: [facility]10 completed this visit: Yes. Score is 4 or more? Yes, notified Provider/Jointer Machine Operator [facility]: Age 65+: 1 (10/05/2022 2:00 PM) Diagnosis (3 or more co-existing): 1 (10/05/2022 2:00 PM) Prior history of falls within 3 months: 0 (10/05/2022 2:00 PM) Incontinence: 1 (10/05/2022 2:00 PM) Visual impairment: 1 (10/05/2022 2:00 PM) Impaired functional mobility: 1 (10/05/2022 2:00 PM) Environmental hazards: 1 (10/05/2022 2:00 PM) Poly Pharmacy (4 or more prescriptions - any type): 1 (10/05/2022 2:00 PM) Pain affecting level of function: 0 (10/05/2022 2:00 PM) Cognitive impairment: 1 (10/05/2022 2:00 PM) Score - a score of 4 or more is considered at risk for fallin (10/05/2022 2:00 PM) ED Follow-up Type of visit: [facility] ED home visit. Reason for ED visit: Member reports going on their own she was choking Patient aware of care options: Yes - reinforce education for right care at right place and time Follow-up appointment scheduled with PCP and/or specialists: Yes - reinforce (write down for patient). Schedule call for day before or of appointment. Patient has [facility] Declined - Not interested . Patient has Mail Order Pharmacy: No - educate on Mail Order Pharmacy. Assist with obtaining Mail Order Pharmacy. not interested With additional information on other care options, patient states they will: Utilize [facility] or refer to CM and/or PCP office for other medical needs: No Plan: Reinforced patient's three red flags by the care team Treatment/Plan: Continue meds as prescribed/reviewed Use nebulizer 4x a day as needed Finish entire course of abxs APAP prn for discomfort/fever Cough and deep breathing Low Na, CCD diet Frequent repositioning, every 2 hours CG 5 days a week, 8-9 hrs each day Svetlana lift for transfers Patient's 'Red Flags': 1. S/s of UTI - Fever, confusion 2. Increased SOB 3. Fever Patient's 'Red Flags': 1. S/s of UTI - Fever, confusion 2. Increased SOB 3. Fever Follow Up: Patient encouraged to call the intake phone number for all urgent but not emergent issues. Scheduled to follow up with patient as needed Kaylee Khan Community Health Manager Group Home 11/01/2022 9:55 AM documented in this encounter Miscellaneous Notes * Assessment & Plan Note - Aleyda Campos PA-C - 11/01/2022 1:13 PM EST Associated Problem(s): Aspiration pneumonia (HCC) Finished flagyl and omnicef from admission 10/19 Still having cough difficulty clearing secretions. Reportedly seen by speech. Recommended thickenedliquids. Pt not compliant. Urged aspiration preventions * Assessment & Plan Note - Aleyda Campos PA-C - 11/01/2022 1:12 PM EST Associated Problem(s): UTI (urinary tract infection) Unable to see urine cx from recent hospitalization 10/29 Currently on bactrim. Repeat straight cath UA this week * Assessment & Plan Note - Aleyda Campos PA-C - 11/01/2022 1:10 PM EST Associated Problem(s): Restrictive lung disease Has not been using nebs. Lost top piece. EMILE provided replacement today Agreed to start using nebs again for SOB. * Assessment & Plan Note - Aleyda Campos PA-C - 11/01/2022 1:08 PM EST Associated Problem(s): Type 2 diabetes mellitus with hemoglobin A1c goal of less than 8.0% (HCC) Vague on what blood sugars have been running. "high" today Continue current regimen: lantus 60 u HS, novolog 35 u with breakfast, 39 u at lunch, 55 u at dinner. Brice adjusts prn. Trulicity, metformin * Assessment & Plan Note - Aleyda Campos PA-C - 11/01/2022 1:06 PM EST Associated Problem(s): Cirrhosis of liver (HCC) Per pt and significant other, taking lactulose at least BID. BM several times per day * Assessment & Plan Note - Aleyda Campos PA-C - 11/01/2022 1:05 PM EST Associated Problem(s): Iron deficiency anemia due to chronic blood loss Last hgb 11.2 10/14/22. stable * Assessment & Plan Note - Aleyda Campos PA-C - 11/01/2022 1:05 PM EST Associated Problem(s): THAD on CPAP compliant * Assessment & Plan Note - Aleyda Campos PA-C - 11/01/2022 1:04 PM EST Associated Problem(s): HTN, goal below 130/80 BP stable -continue isosorbide, nadolol * Assessment & Plan Note - Aleyda Campos PA-C - 11/01/2022 1:03 PM EST Associated Problem(s): Chronic diastolic (congestive) heart failure (HCC) Not doing daily weights. Taking "a fluid pill." Unsure of meds. Edema in legs seems to be at baseline documented in this encounter Plan of Treatment Upcoming Encounters Date Type Specialty Care Team Description 11/02/2022 Office Visit Pharmacy Pharmacist1, [facility] Sp [address] [place] [address] 11/03/2022 [facility] Visit [facility] July Poe RN [address] [facility] [place] [address] 11/04/2022 Hem/Onc Treatment Hematology Oncology [place], Chair 10 Hem Onc [address] [place] [address] 11/07/2022 Office Visit Family Medicine Vanita Dunn MD [address] [place] [address] 11/09/2022 Home Visit [facility] July Poe RN [address] [facility] [place] [address] 11/21/2022 Telemedicine [facility] Eleni Kelsey CRNP [address] [facility] [place] [address] Kaylee Khan, Community Health Manager Group Home [address] [place] [address] 12/06/2022 Office Visit Gastroenterology Lyssa Stout CRNP [address] [place] [address] 12/08/2022 Home Visit [facility] Aleyda Campos PA-C [address] [place] [address] 12/08/2022 Office Visit Hematology Oncology Tono Sanchez MD [address] [facility] [place] [address] 02/10/2023 Office Visit Sleep Disorders Love Francisco DO [address] [place] [address] 03/01/2023 PulmDiagnostic Pulmonary Function [place], P[address] [place] [address] Scheduled Procedures Name Priority Associated Diagnoses Date/Ti [...] this encounter Medical Devices Implanted Type Area Furniture Polisher Device Identifier Shelf Expiration Date Model / Serial / Lot [employer] Sure Clip Implanted:Qty: 2 on 06/03/2020 by Janis Hatch DO at OR [facility] Clip N/A: Colon 04/21/2022 [facility]-F-[id number] 35-C-R / / [id number] documented as of this encounter Visit Diagnoses Diagnosis Chronic diastolic (congestive) heart failure (HCC)- Primary HTN, goal below 130/80 Unspecified essential hypertension THAD on CPAP Obstructive sleep apnea (adult) (pediatric) 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 (chronic) Other cirrhosis of liver (HCC) Type 2 diabetes mellitus with hemoglobin A1c goal of less than 8.0% (HCC) Restrictive lung disease Other diseases of lung, not elsewhere classified Acute cystitis with hematuria Acute cystitis Aspiration pneumonia, unspecified aspiration pneumonia type, unspecified laterality, unspecified part of lung (HCC) Pancytopenia (HCC) Other pancytopenia Major depressive disorder, recurrent, moderate (HCC) Major depressive disorder, recurrent episode, moderate Generalized anxiety disorder documented in this encounter Additional Health Concerns Infection Onset Date Last Indicated Resolved Time 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 No Code Status History Code Status Date Activated Date Inactivated Comments Full Code 12/27/2021 2:50 PM 12/27/2021 8:02 PM This order reflects the patients wishes and were consensually agreed upon. Question Answer Comments Discussion of Advance Directives occurred with: Not Discussed Does the patient have a Living Will? No Does the patient have Health Care Power of Surface Plate Inspector? No Full Code 03/31/2021 8:57 PM [...] [facility] Andres Shaw Spouse Emergency Contact Care Teams Dialysis Clinical Manager Relationship Specialty Start Date End Date Vanita Dunn MD [address] [place] [address] PCP - General Family Medicine 03/16/21 documented as of this encounter
--- OUTSIDE RECORDS SUMMARY | 2023-05-10 17:17 | External Medical Summary | Summary of Care ---
Author Name Unknown Organization [facility] Address [facility] [place] [address] Care Team Providers Care Ordering Box Operator Name Role Phone Vanita Dunn MD Primary Care Provid er Reason for Visit * Reason Onset Date Comments Appointment 11/01/2022 Encounter Details Date Type Department Care Team Description 11/01/2022 Telephone [facility], [facility] [address] [place] [address] [facility] [address] [facility] [place] [address] Appointment Allergies Active Allergy Reactions Severity Noted Date Comments Adhesive Tape Itching 04/29/2020 Penicillins Rash 02/12/2008 Penicillin G 07/20/2018 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 documented as of this encounter (statuses as of 11/01/2022) Medications Medication Sig Dispensed Refills Start Date End Date Status nystatin (NYSTOP) 260030 UNIT/GM powder Apply topically to affected area 3 times a day. 60 g 1 10/16/2019 Active Dexcom G6 Studio Hand Device Use as directed. To test blood sugars 4 times a day Dx E11.9 1 Each 0 09/14/2020 Active Dexcom G6 Transmitter Use as directed. To test blood sugars 4 times a day. Change every 90 days. Dx E11.9 1 Each 3 09/14/2020 Active OneTouch Verio In Vitro Strip (Glucose Blood) TESTING once daily 100 Strip 3 10/29/2020 Active OneTouch Delica Plus [id number] TESTING once daily 100 Each 3 10/29/2020 [...] goal of less than 8.0% ([facility]) Inject 27 units subcutaneously at bedtime and [...] oxyCODONE HCl 5 MG Oral Tablet (Oxy IR)Indications:Gastroenterology Manager kai pain syndrome Take 1 Tablet [...] of 11/01/2022) Active Problems Problem Noted Date Pancytopenia 04/29/2022 Chronic diastolic (congestive) heart jaymie lure 09/13/2021 Last Assessment & Plan: No SOB. Has had diarrhea -continue spironolactone, KCl, lasix Portal hypertensive gastropathy 03/16/20 21 Esophageal varices 07/06/2020 Last Assessment & Plan: Continue pantoprazole and Nadolol Iron deficiency anemia due to chronic bl ood loss 12/03/2019 Last Assessment & Plan: Last hgb 10.7 06/02 -stable Thrombocytopenia 05/02/2019 Gastroesophageal reflux disease 04/08/20 19 Fibromyalgia 04/08/2019 DM type 2 with diabetic peripheral neuro heather 04/04/2019 Primary insomnia 04/04/2019 Recurrent major depressive disorder, in partial remission 04/04/2019 Last Assessment & Plan: Seems very depressed about current situation. 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 if a usp plan is made -continue lexapro Impaired mobility and ADLs 04/04/2019 Wheelchair dependent 12/21/2018 THAD on CPAP 12/26/2017 Cirrhosis of liver 11/20/2017 Chronic pain syndrome 01/17/2017 MEDICATION USE AGREEMENT 01/17/2017 Overview: 01/17/17 Acquired hypothyroidism 12/12/2016 Last Assessment & Plan: TSH low during last admission. T4 WNL. Synthroid reduced. Recheck in 6 weeks 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 1 10/09/2015 Obesity, morbid (more than 100 lbs over ideal weight or BMI > 40) 02/09/2015 Restrictive lung disease 12/10/2014 Last Assessment & Plan: O2 stable -continue symbicort, albuterol Type 2 diabetes mellitus with hemoglobin A1c goal of less than 8.0% 09/26/2013 Overview: ICD-10 update of inactive term Last Assessment & Plan: Last hgba1c 7.4. BS high likely due to URI and stress -continue trulicity, metformin, novolog and lantus Vitamin D deficiency 09/26/2013 Lymphedema 03/11/2013 Venous stasis dermatitis of both lower e xtremities 05/07/2012 NG (nonalcoholic steatohepatitis) 04/12 Last Assessment & Plan: Noncompliant with lactuose Constipation 05/02/2012 HTN, goal below 130/80 03/27/2012 Last Assessment & Plan: BP on the low side, but stable -continue isosorbide Cerebral palsy 01/24/2012 Spinal stenosis of lumbar [...] lower extremity 04/15/2020 11/30/2020 Splenomegaly 12/03/2019 09/13/2021 History of kidney stones 04/08/2019 020 History [...] 017 Overview: 03/27/12 Chronic rhinitis 03/27/2012 09/13/2021 Urinary tract infection 01/27/2012 04/03/20 21 Sleep disturbance 01/24/2012 07/02/2014 Malaise and fatigue 01/24/2012 06/07/2016 Myalgia and myositis 01/24/2012 06/07/2016 Urinary frequency 01/24/2012 07/02/2014 Urgency of urination 01/24/2012 06/07/2016 Kidney disease, chronic, stage III (GFR 30-59 ml /min) 01/24/2012 03/27/2012 Chronic pain 01/24/2012 01/17/2017 Genetic Sleep Disorder Research Other*[id number] 05/13/2011 04/07/2016 Obstructive sleep apnea 01/18/2011 12/27/19 [...] (Prevnar) 05/02/2019 Pneumococcal Conjugate Vacci ne, 20-valent ([id number]) 10/21/2022 Pneumococcal Polysaccharide PPV23 (Pneumovax) 06/01/2010 Seasonal [...] cath Please get updated med list from [facility] and scan into chart Thank you documented in this encounter Plan of Treatment Upcoming Encounters Date Type Specialty Care Team Description 11/02/2022 Office Visit Pharmacy Pharmacist1, [facility] [address] [place] [address] 11/04/2022 Hem/Onc Treatment Hematology Oncology [place], Chair 10 Hem Onc [address] [place] [address] 11/07/2022 Office Visit Family Medicine Vanita Dunn MD [address] [facility] [place] [id number] 11/09/2022 [facility] Visit [facility]oe [facility] [address] 11/21/2022 Telemedicine [facility] Eleni Kelsey CRNP [address] [facility] [place] [address] Kaylee Khan, Community Health Brim Greaser Operator [address] [place] [address] 12/06/2022 Office Visit Gastroenterology Lyssa Stout CRNP 132 [facility] [place] [address] 12/08/2022 Office Visit Hematology Oncology Tono Sanchez MD [address] [place] [address], [place] [address] 02/10/2023 Office Visit Sleep Disorders Love Francisco DO 132 [facility] [place] [address] 03/01/2023 PulmDiagnostic Pulmonary Function West, Pft [address] [facility] [place] [address] Scheduled Orders Name Type Priority Associated Diagnoses [...] this encounter Medical Devices Implanted Type Area Creeler Device Identifier Shelf Expiration Date Model / Serial / Lot Microtech Sure Clip Implanted:Qty: 2 on 06/03/2020 by Janis Hatch, DO at OR [facility] Clip N/A: Colon 04/21/2022 [id number]-F-26-2 35-C-R / / [id number] documented as of this encounter Visit Diagnoses Diagnosis Aspiration pneumonia, unspecified aspiration pneumonia type, unspecified laterality, unspecified part of lung (HCC)- Primary Acute cystitis without hematuria Acute cystitis documented in this encounter Additional Health Concerns Infection Onset Date Last Indicated Resolved Time MRSA 09/17/2022 09/17/2022 documented as of this encounter Advance Directives Documents on File Type Date Recorded Patient Electronic Equipment Repairer Expl anation Advance Directives and Living Will 04/29/2021 ADVANCE DIRECTIVE / LIVING WILL LIVING WILL AND HEALTH CARE POA Power of Mercerizing Range Feeder 04/29/2021 POWER OF A [facility] [...] the patient have Health Care Power of Mercerizing Range Feeder? No Code Status History Code Status Date Activated Date Inactivated Comments Full Code 12/27/2021 2:50 PM 12/27/2021 8:02 PM This order reflects the patients wishes and were consensually agreed upon. Question Answer Comments Discussion of Advance Directives occurred with: Not Discussed Does the patient have a Living Will? No Does the patient have Health Care Power of Mercerizing Range Feeder? No Full Code 03/31/2021 8:57 PM 04/03/2021 [...] Syed Bustos Spouse Emergency Contact Care Teams Ordering Box Operator Relationship Specialty Start Date End Date Vanita Dunn MD [address] [place] [address] PCP - General Family Medicine 03/16/21 documented as of this encounter
--- OUTSIDE RECORDS SUMMARY | 2023-05-10 17:18 | External Medical Summary | Summary of Care ---
Author Name Unknown Organization [facility] Address [place] [address] Care Team Providers Care Hand Compositor Name Role Phone Vanita Dunn MD Primary Care Provid er Reason for Visit * Reason Onset Date Comments [facility]: Maintenance 10/29/2022 P t hospitalized at [facility] Encounter Details Date Type Department Care Team Description 10/29/2022 Scheduled Telephone [facility], [facility] [address] [facility] [place] [address] [facility], Nurse [facility] [address] [facility] [place] [address] Allergies Active Allergy Reactions Severity Noted Date Comments Adhesive Tape Itching 04/29/2020 Penicillins Rash 02/12/2008 Penicillin G 07/20/2018 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 documented as of this encounter (statuses as of 10/29/2022) Medications Medication Sig Dispensed Refills Start Date End Date Status nystatin (NYSTOP) 034675 UNIT/GM powder Apply topically to affected area 3 times a day. 60 g 1 10/16/2019 Active Dexcom G6 Respiratory Therapy Director Device Use as directed. To test blood sugars 4 times a day Dx E11.9 1 Each 0 09/14/2020 Active Dexcom G6 Transmitter Use as directed. To test blood sugars 4 times a day. Change every 90 days. 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 kai pain syndrome Take 1 Tablet [...] as of this encounter (statuses as of 10/29/2022) Active Problems Problem Noted Date Pancytopenia 04/29/2022 [...] a alf plan is made -continue lexapro Impaired mobility [...] as of this encounter (statuses as of 10/29/2022) Resolved Problems Problem Noted Date Resolved Date [...] pain 01/24/2012 01/17/2017 Genetic Sleep Disorder Research Other*[id number] 05/13/2011 04/07/2016 Obstructive sleep apnea 01/18/2011 12/27/19 [...] as of this encounter (statuses as of 10/29/2022) Immunizations Name Administration Dates Next Due COVID-19 mRNA, LNP-s, No Pre serve, 2-Dose Series (Moderna) 01/05/2022,07/26/2021,12/21/2020,11/09 HEP A - Hepatitis A (Adult > 18 yrs) 09/24/2018, 03/26/2018 Hepatitis B, 20+ yrs 09/24/2018,04/23/2018,03/26 Pneumococcal Conjugate Vacc, 13 Valent (Prevnar) 05/02/2019 Pneumococcal Conjugate Vacci ne, 20-valent ([id number]) 10/21/2022 Pneumococcal Polysaccharide PPV23 (Pneumovax) 06/01/2010 Seasonal [...] Miscellaneous Notes * Telephone Encounter - Bebe Morales RN - 10/29/2022 10:45 AM EST F/u call - 911 was called for pt yesterday Spoke with Brice Pt is in pt at [facility] at this time documented in this encounter Plan of Treatment Upcoming Encounters Date Type Specialty Care Team Description 10/30/2022 Scheduled Telephone [facility], Nurse Brady Pecos [address] [place] [address] 11/01/2022 [facility]medicine [facility] [place], Aleyda Escobar PA-C [address] [place] [address] Kaylee Khan, Community Health Experimental Psychologist [address] [facility] [place] [address] 11/02/2022 Office Visit Pharmacy Pharmacist1, [facility] [address] [facility] [place] [address] 11/04/2022 Hem/Onc Treatment Hematology Oncology [place], Chair 10 Hem Onc [facility] [address] [place] [address] 11/09/2022 Home Visit [facility] July Poe, UMA 132 [facility] [place] [address] 12/06/2022 Office Visit Gastroenterology Lyssa Stout CRNP 132 [facility] [place] [address] 12/08/2022 Office Visit Hematology Oncology Tono Sanchez MD 200 [place] [address] 02/10/2023 Office Visit Sleep Disorders Loev Francisco DO 132 [facility] [place] [address] 03/01/2023 PulmDiagnostic Pulmonary Function [place], Pft 132 [facility] [place] [address] Scheduled Procedures Name Priority Associated Diagnoses Date/Ti [...] this encounter Medical Devices Implanted Type Area Clearing House Clerk Device Identifier Shelf Expiration Date Model / Serial / Lot Microtech Sure Clip Implanted:Qty: 2 on 06/03/2020 by Janis Hatch DO at OR [facility] Clip N/A: Colon 04/21/2022 ROCC-F-26-2 35-C-R / / [id number] documented as of this encounter Additional Health Concerns Infection Onset Date Last Indicated Resolved Time MRSA 09/17/2022 09/17/2022 documented as of this encounter Advance Directives Documents on File Type Date Recorded Patient Forest Botany Instructor Expl anation Advance Directives and Living Will 04/29/2021 ADVANCE DIRECTIVE / LIVING WILL LIVING WILL AND HEALTH CARE POA Power of Barrel Washer 04/29/2021 POWER OF A [facility] [...] the patient have Health Care Power of Barrel Washer? No Code Status History Code Status Date Activated Date Inactivated Comments Full Code 12/27/2021 2:50 PM 12/27/2021 8:02 PM This order reflects the patients wishes and were consensually agreed upon. Question Answer Comments Discussion of Advance Directives occurred with: Not Discussed Does the patient have a Living Will? No Does the patient have Health Care Power of Barrel Washer? No Full Code 03/31/2021 8:57 PM 04/03/2021 [...] Bustos Spouse Emergency Contact Care Teams Hand Compositor Relationship Specialty Start Date End Date Vanita Dunn MD [address] [facility] [place] [phone] PCP - General Family Medicine 03/16/21 documented as of this encounter
--- OUTSIDE RECORDS SUMMARY | 2023-05-10 17:18 | External Medical Summary | Summary of Care ---
Author Name Unknown Organization [facility] Address [place] [address] Care Team Providers Care Enamel Burner Name Role Phone Vanita Dunn MD Primary Care Provid er Reason for Visit * Reason Onset Date Comments [facility]: Maintenance 10/30/2022 Encounter Details Date Type Department Care Team Description 10/30/2022 Scheduled Telephone [facility], [facility] 132 [facility] [place] [address] [facility], Nurse [facility] [address] [facility] [place] [address] Allergies Active Allergy Reactions Severity Noted Date Comments Adhesive Tape Itching 04/29/2020 Penicillins Rash 02/12/2008 Penicillin G 07/20/2018 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 documented as of this encounter (statuses as of 10/30/2022) Medications Medication Sig Dispensed Refills Start Date End Date Status nystatin (NYSTOP) 030524 UNIT/GM powder Apply topically to affected area 3 times a day. 60 g 1 10/16/2019 Active Dexcom G6 Home Sales Service Professional Device Use as directed. To test blood sugars 4 times a day Dx E11.9 1 Each 0 09/14/2020 Active Dexcom G6 Transmitter Use as directed. To test blood sugars 4 times a day. Change every 90 days. Dx E11.9 1 Each 3 09/14/2020 Active OneTouch Verio In Vitro Strip (Glucose Blood) TESTING once daily 100 Strip 3 10/29/2020 Active OneTouch Delica Plus [id number] TESTING once daily 100 Each 3 10/29/2020 [...] hemoglobin A1c goal of less than 8.0% ([facility]) 35 Units at breakfast, 39 [...] hemoglobin A1c goal of less than 8.0% ([facility]) Inject 27 units subcutaneously at bedtime [...] oxyCODONE HCl 5 MG Oral Tablet (Oxy IR)Indications:Criminal Justice Program Director kai pain syndrome Take 1 Tablet [...] as of this encounter (statuses as of 10/30/2022) Active Problems Problem Noted Date Pancytopenia 04/29/2022 [...] current situation. 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 if a director long term care plan is made -continue lexapro Impaired mobility [...] as of this encounter (statuses as of 10/30/2022) Resolved Problems Problem Noted Date Resolved Date [...] pain 01/24/2012 01/17/2017 Genetic Sleep Disorder Research Other*[id number] 05/13/2011 04/07/2016 Obstructive sleep apnea 01/18/2011 12/27/19 [...] as of this encounter (statuses as of 10/30/2022) Immunizations Name Administration Dates Next Due COVID-19 mRNA, LNP-s, No Pre serve, 2-Dose Series (Moderna) 01/05/2022,07/26/2021,12/21/2020,11/09 HEP A - Hepatitis A (Adult > 18 yrs) 09/24/2018, 03/26/2018 Hepatitis B, 20+ yrs 09/24/2018,04/23/2018,03/26 Pneumococcal Conjugate Vacc, 13 Valent (Prevnar) 05/02/2019 Pneumococcal Conjugate Vacci ne, 20-valent ([id number]) 10/21/2022 Pneumococcal Polysaccharide PPV23 (Pneumovax) 06/01/2010 Seasonal [...] Telephone Encounter - Bebe Morales RN - 10/30/2022 12:17 PM EST T/c pt Spoke with Pt sleeping at time of call D/c home from [facility] yesterday Uncertain as to what pt treated for but ''they ordered her antibiotics'' which she is taking Has all meds in home and is taking as prescribed No c/o cp or sob when up this morning ''She seems to be feeling okay'' Reviewed [facility] provider visit scheduled for 11/01/22 Verbalized understanding and agreed to call [facility] with concerns documented in this encounter Plan of Treatment Upcoming Encounters Date Type Specialty Care Team Description 11/01/2022 Telemedicine [facility] Aleyda Campos PA-C 132 [facility] [place] [address] Kaylee Khan, Community Health Stock Raiser [address] [place] [address] 11/02/2022 Office Visit Pharmacy Pharmacist1, [facility] Sp 200 [place] [address] 11/04/2022 Hem/Onc Treatment Hematology Oncology [place], Chair 10 Hem Onc [facility] 200 [place] [address] 11/09/2022 Home Visit [facility] July Poe RN 132 [facility] [place] [address] 12/06/2022 Office Visit Gastroenterology Lyssa Stout CRNP [address] [facility] [place] [address] 12/08/2022 Office Visit Hematology Oncology Tono Sanchez MD 200 [place] [address] 02/10/2023 Office Visit Sleep Disorders Love Francisco DO [address] [place] [address] 03/01/2023 PulmDiagnostic Pulmonary Function [place], Pft [address] [facility] [place] [address] Scheduled Procedures Name Priority Associated Diagnoses Date/Ti [...] this encounter Medical Devices Implanted Type Area Rig Manager Device Identifier Shelf Expiration Date Model / Serial / Lot Microtech Sure Clip Implanted:Qty: 2 on 06/03/2020 by Janis Hatch DO at OR [facility] Clip N/A: Colon 04/21/2022 ROCC-F-26-2 35-C-R / / [id number] documented as of this encounter Additional Health Concerns Infection Onset Date Last Indicated Resolved Time MRSA 09/17/2022 09/17/2022 documented as of this encounter Advance Directives Documents on File Type Date Recorded 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 No Code Status History Code Status Date Activated Date Inactivated Comments Full Code 12/27/2021 2:50 PM 12/27/2021 8:02 PM This order reflects the patients wishes and were consensually agreed upon. Question Answer Comments Discussion of Advance Directives occurred with: Not Discussed Does the patient have a Living Will? No Does the patient have Health Care Power of Template Layout Worker? No Full Code 03/31/2021 8:57 PM [...] Agents on File Name Relationship Healthcare Agent [facility] Communication Syed Bustos Spouse Emergency Contact Care Teams Enamel Burner Relationship Specialty Start Date End Date Vanita Dunn MD [address] [place], [place] [phone] PCP - General Family Medicine 03/16/21 documented as of this encounter
--- OUTSIDE RECORDS SUMMARY | 2023-05-10 17:18 | External Medical Summary | Summary of Care ---
Author Name Unknown Organization [facility] [place] [address] Care Team Providers Care Channeling Machine Runner Name Role Phone Vanita Dunn MD Primary Care Provid er Reason for Visit * Reason Onset Date Comments Information 10/31/2022 Encounter Details Date Type Department Care Team Description 10/31/2022 Telephone [facility], [facility] [address] [facility] [place] [address] Services, Scheduling [address] [place] [address] Information Allergies Active Allergy Reactions Severity Noted Date Comments Adhesive Tape Itching 04/29/2020 Penicillins Rash 02/12/2008 Penicillin G 07/20/2018 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 documented as of this encounter (statuses as of 10/31/2022) Medications Medication Sig Dispensed Refills Start Date End Date Status nystatin (NYSTOP) 375191 UNIT/GM powder Apply topically to affected area 3 times a day. 60 g 1 10/16/2019 Active Dexcom G6 Examination Supervisor Device Use as directed. To test blood sugars 4 times a day Dx E11.9 1 Each 0 09/14/2020 Active Dexcom G6 Transmitter Use as directed. To test blood sugars 4 times a day. Change every 90 days. Dx E11.9 1 Each 3 09/14/2020 Active OneTouch Verio In Vitro Strip (Glucose Blood) TESTING once daily 100 Strip 3 10/29/2020 Active OneTouch Delica Plus [id number] TESTING once daily 100 Each 3 10/29/2020 [...] s:Recurrent major depressive disorder, in partial remission ([facility]) TAKE 1 TABLET BY MOUTH DAILY [...] 8.0% (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 kai pain syndrome Take 1 Tablet [...] as of this encounter (statuses as of 10/31/2022) Active Problems Problem Noted Date Pancytopenia 04/29/2022 [...] lines operator plan is made -continue lexapro Impaired mobility [...] as of this encounter (statuses as of 10/31/2022) Resolved Problems Problem Noted Date Resolved Date [...] pain 01/24/2012 01/17/2017 Genetic Sleep Disorder Research Other*[id number] 05/13/2011 04/07/2016 Obstructive sleep apnea 01/18/2011 12/27/19 [...] as of this encounter (statuses as of 10/31/2022) Immunizations Name Administration Dates Next Due COVID-19 mRNA, LNP-s, No Pre serve, 2-Dose Series (Moderna) 01/05/2022,07/26/2021,12/21/2020,11/09 HEP A - Hepatitis A (Adult > 18 yrs) 09/24/2018, 03/26/2018 Hepatitis B, 20+ yrs 09/24/2018,04/23/2018,03/26 Pneumococcal Conjugate Vacc, 13 Valent (Prevnar) 05/02/2019 Pneumococcal Conjugate Vacci ne, 20-valent ([id number]) 10/21/2022 Pneumococcal Polysaccharide PPV23 (Pneumovax) 06/01/2010 Seasonal [...] Miscellaneous Notes * Telephone Encounter - THAD Paez - 10/31/2022 12:18 PM EST Outgoing call to patient, no answer. Appointment Telmed 11/21/2022 2pm ZAK Monson, Community Health Cleaning And Washing Equipment Operator documented in this encounter Plan of Treatment Upcoming Encounters Date Type Specialty Care Team Description 11/01/2022 Telemedicine [facility] Aleyda Campos PA-C [address] [facility] [place] [address] Kaylee Khan, Community Health Cleaning And Washing Equipment Operator [address] [place] [address] 11/02/2022 Office Visit Pharmacy Pharmacist1, [facility] [address] [place] [address] 11/04/2022 Hem/Onc Treatment Hematology Oncology [place], Chair [address] Hem On[address] [place] [address] 11/09/2022 Home Visit [facility] July Poe RN [address] [place] [address] 11/21/2022 Telemedicine [facility] Eleni Kelsey CRNP [address] [facility] [place] [address] Kaylee Khan, Community Health Cleaning And Washing Equipment Operator [address] [place] [address] 12/06/2022 Office Visit Gastroenterology Lyssa Stout CRNP [address] [place] [address] 12/08/2022 Office Visit Hematology Oncology Tono Sanchez MD [address] [place] [address] 02/10/2023 Office Visit Sleep Disorders Love Francisco DO [address] [facility] [place] [address] 03/01/2023 PulmDiagnostic Pulmonary Function [place], Pft [address] [facility] [place] [address] Scheduled Procedures Name Priority Associated Diagnoses Date/Ti [...] this encounter Medical Devices Implanted Type Area Parachute Rigger Device Identifier Shelf Expiration Date Model / Serial / Lot Microtech Sure Clip Implanted:Qty: 2 on 06/03/2020 by Janis Hatch DO at OR [facility] Clip N/A: Colon 04/21/2022 [id number]-F-[id number] 35-C-R / / [id number] documented as of this encounter Additional Health Concerns Infection Onset Date Last Indicated Resolved Time MRSA 09/17/2022 09/17/2022 documented as of this encounter Advance Directives Documents on File Type Date Recorded Patient Web Press Operator Expl anation Advance Directives and Living Will 04/29/2021 ADVANCE DIRECTIVE / LIVING WILL LIVING WILL AND HEALTH CARE POA Power of Sign Language Interpreter 04/29/2021 POWER OF A [facility] [...] the patient have Health Care Power of Sign Language Interpreter? No Code Status History Code Status Date Activated Date Inactivated Comments Full Code 12/27/2021 2:50 PM 12/27/2021 8:02 PM This order reflects the patients wishes and were consensually agreed upon. Question Answer Comments Discussion of Advance Directives occurred with: Not Discussed Does the patient have a Living Will? No Does the patient have Health Care Power of Sign Language Interpreter? No Full Code 03/31/2021 8:57 PM [...] File Name [facility] Syed Bustos Spouse Emergency Contact Care Teams Channeling Machine Runner Relationship Specialty Start Date End Date Vanita Dunn MD [address] [place], [place] [id number] PCP - General Family Medicine 03/16/21 documented as of this encounter
--- OUTSIDE RECORDS SUMMARY | 2023-05-10 17:19 | External Medical Summary | Summary of Care ---
Author Name Unknown Organization [facility] Address [place] [address] Care Team Providers Care Civil Engineering Technician Name Role Phone Vanita Dunn MD Primary Care Provid er Reason for Visit * Reason Onset Date Comments [facility]: Acute 10/28/2022 Encounter Details Date Type Department Care Team Description 10/28/2022 Telephone [facility], [facility] [address] [facility] [place] [address] [facility], Nurse [facility] [address] [facility] [place] [address] [facility]: Acute Allergies Active Allergy Reactions Severity Noted Date Comments Adhesive Tape Itching 04/29/2020 Penicillins Rash 02/12/2008 Penicillin G 07/20/2018 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 documented as of this encounter (statuses as of 10/28/2022) Medications Medication Sig Dispensed Refills Start Date End Date Status nystatin (NYSTOP) 194412 UNIT/GM powder Apply topically to affected area 3 times a day. 60 g 1 10/16/2019 Active Dexcom G6 Geriatrics Physician Device Use as directed. To test blood sugars 4 times a day Dx E11.9 1 Each 0 09/14/2020 Active Dexcom G6 Transmitter Use as directed. To test blood sugars 4 times a day. Change every 90 days. 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 pain syndrome Take 1 Tablet by [...] as of this encounter (statuses as of 10/28/2022) Active Problems Problem Noted Date Pancytopenia 04/29/2022 [...] group home plan is made -continue lexapro Impaired mobility [...] as of this encounter (statuses as of 10/28/2022) Resolved Problems Problem Noted Date Resolved Date [...] pain 01/24/2012 01/17/2017 Genetic Sleep Disorder Research Other*[id number] 05/13/2011 04/07/2016 Obstructive sleep apnea 01/18/2011 12/27/19 [...] as of this encounter (statuses as of 10/28/2022) Immunizations Name Administration Dates Next Due COVID-19 mRNA, LNP-s, No Pre serve, 2-Dose Series (Moderna) 01/05/2022,07/26/2021,12/21/2020,11/09 HEP A - Hepatitis A (Adult > 18 yrs) 09/24/2018, 03/26/2018 Hepatitis B, 20+ yrs 09/24/2018,04/23/2018,03/26 Pneumococcal Conjugate Vacc, 13 Valent (Prevnar) 05/02/2019 Pneumococcal Conjugate Vacci ne, 20-valent ([id number]) 10/21/2022 Pneumococcal Polysaccharide PPV23 (Pneumovax) 06/01/2010 Seasonal [...] Telephone Encounter - Jennifer Alexander RN - 10/28/2022 12:36 PM EST [facility] glass smoother Acute Call Date: 10/28/2022 Time: 12:36 PM Name: Shaina Bustos : 1955 Caller: Syed Bustos Relationship to spouse No chief complaint on file. HPI: Shaina Bustos is a 67 year old female whose spouse is calling [facility] Intake to report : Also spoke to patient on speaker phone O2 sat 95% States she feels like she is having trouble breathing. Patient distressed on phone. States "feels like she cant get air". States she uses bipap at night but no oxygen during day. Patient able to speak short sentences on phone Cough, non productive at baseline LE edema at baseline Chest pain left side - instructed spouse to give patient 1 NTG- spouse is unable to locate the NTG. glass smoother also instructed spouse to give patient HHN treatment. Spouse states he has the nebulizer machine but cant find the tubings for HHN. States he moved some things around in home and cant locate the tubing. States he does not have any extra HHN tubings/ mouthpiece. Did not take any medications yet today Denies nausea, vomiting, diarrhea Had earlier visit today with BRADY EATONCM Nursing Assessment: Patient's chief complaint for this call: Other, describe as above Pain Has pain Pain level: patient upset and unable to verbalize pain level Location: left chest Quality of Pain: patient upset , unable to describe pain Does the pain radiate: No Baseline Assessment Able to performing ADLs at baseline (walking, daily tasks, etc.): Unknown Chief Complaint is related to a chronic condition: Unknown Patient prescribed oxygen? No Patient has been ordered DME equipment (assistive devices, respiratory equipment, etc.): Yes Describe DME devices: HHN, bipap Patient is using DME device as directed: No, has not used HHN as cant find HHN tubing Medication Reconciliation: Received flu shot this season: Yes Taking medication as ordered: Unknown Medications ordered/taking to treat reason for call: No- could not find HHN tubing to do treatment.Could not find NTG to take for chest pain Heart failure symptoms: Unknown COPD exacerbation symptoms: No Reinforcement Education: Discussed with patient as she has chest pain and feels like she cant breathe and cant locate NTG, glass smoother called 911. Spoke to Gavin at [facility] call center. States patient will most likely be transported to [facility]. Treatment/Plan: (need to report) Level of call: Emergent, EMS contacted- spoke to EMS/ Gavin at [facility] call center for [facility]. Routed to [facility] , care team. Please order HHN tubings, set ups and order new NTG prescription Scheduled 24/48 hr f/u calls. Shannan Alexander RN [facility] Custom Bookbinder [facility] Call back instructions provided to patient. documented in this encounter Plan of Treatment Upcoming Encounters Date Type Specialty Care Team Description 10/29/2022 Scheduled Telephone [facility], Nurse [address] [address] 10/30/2022 Scheduled Telephone [facility] [place], Nurse Brady Chavez [address] [facility] [place] [address] 11/01/2022 Telemedicine [facility] [place], Aleyda Escobar PA-C [address] [facility] [place] [address] Kaylee Khan, Community Health Vehicle Washer [address] [place] [address] 11/02/2022 Office Visit Pharmacy Pharmacist1, [facility] [address] [place] [address] 11/04/2022 Hem/Onc Treatment Hematology Oncology [place], Chair [address] Hem On[address] [place] [address] 11/09/2022 Home Visit [facility] July Poe RN [address] [facility] [place] [address] 12/06/2022 Office Visit Gastroenterology Lyssa Stout CRNP [facility] [place] [address] 12/08/2022 Office Visit Hematology Oncology Tono Sanchez MD [address] [place] [address] 02/10/2023 Office Visit Sleep Disorders Love Francisco DO [address] [place] [address] 03/01/2023 PulmDiagnostic Pulmonary Function [place], Pft [address] [place] [address] Scheduled Procedures Name Priority Associated Diagnoses Date/Ti [...] this encounter Medical Devices Implanted Type Area Java Developer Architect Device Identifier Shelf Expiration Date Model / Serial / Lot Microtech Sure Clip Implanted:Qty: 2 on 06/03/2020 by Janis Hatch DO at OR [facility] Clip N/A: Colon 04/21/2022 [id number]-F-26-2 35-C-R / / [id number] documented as of this encounter Additional Health Concerns Infection Onset Date Last Indicated Resolved Time MRSA 09/17/2022 09/17/2022 documented as of this encounter Advance Directives Documents on File Type Date Recorded Patient Clinical Business Manager Expl anation Advance Directives and Living Will 04/29/2021 ADVANCE DIRECTIVE / LIVING WILL LIVING WILL AND HEALTH CARE POA Power of Advertising Operations Manager 04/29/2021 POWER OF A [facility]TOR[facility] HEALTH [...] the patient have Health Care Power of Advertising Operations Manager? No Code Status History Code Status Date Activated Date Inactivated Comments Full Code 12/27/2021 2:50 PM 12/27/2021 8:02 PM This order reflects the patients wishes and were consensually agreed upon. Question Answer Comments Discussion of Advance Directives occurred with: Not Discussed Does the patient have a Living Will? No Does the patient have Health Care Power of Advertising Operations Manager? No Full Code 03/31/2021 8:57 PM [...] Syed Bustos Spouse Emergency Contact Care Teams Civil Engineering Technician Relationship Specialty Start Date End Date Vanita Dunn MD [address] [facility] [place] [address] PCP - General Family Medicine 03/16/21 documented as of this encounter
--- OUTSIDE RECORDS SUMMARY | 2023-05-10 17:19 | External Medical Summary | Summary of Care ---
Author Name Unknown Organization [facility] Address [facility] [place] [address] Care Team Providers Care Retail Shift Supervisor Name Role Phone Vanita Dunn MD Primary Care Provid er Encounter Details Date Type Department Care Team Description 10/28/2022 Home Visit [facility], [facility] [address] [facility] [place] [address] July Poe RN 132 [facility] [place] [address] Allergies Active Allergy Reactions Severity Noted Date Comments Adhesive Tape Itching 04/29/2020 Penicillins Rash 02/12/2008 Penicillin G 07/20/2018 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 documented as of this encounter (statuses as of 10/28/2022) Medications Medication Sig Dispensed Refills Start Date End Date Status nystatin (NYSTOP) 591718 UNIT/GM powder Apply topically to affected area 3 times a day. 60 g 1 0 Active Dexcom G6 Electrical Apprentice Device Use as directed. To test blood sugars 4 times a day Dx E11.9 1 Each 0 1 Active Dexcom G6 Transmitter Use as directed. To test blood sugars 4 times a day. Change every 90 days. Dx E11.9 1 Each 3 1 Active OneTouch Verio In Vitro Strip (Glucose Blood) TESTING once daily 100 Strip 3 1 Active OneTouch Delica Plus [id number] TESTING once daily 100 Each 3 1 [...] ONCE DAILY 30 Tablet 8 2 Active Oxybutynin Chloride 5 MG Oral Tablet (Ditropan) TAKE 1 TABLET BY MOUTH TWICE DAILY 180 Tablet 1 2 Active Spironolactone 25 MG Oral Tablet [...] (abdominal pain). 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 30 Tablet 0 3 Active Lactulose 10 GM/15ML Oral Solution (Constulose) TAKE 30G (45ML) BY MOUTH 3 TIMES DAILY 1200 mL 0 3 10/28/19 23 Discontinu ed(Refill) Hospital, Clinic, or Other [...] current situation. 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 if a marine oil terminal superintendent plan is made -continue lexapro Impaired mobility [...] pain 01/24/2012 01/17/2017 Genetic Sleep Disorder Research Other*[id number] 05/13/2011 04/07/2016 Obstructive sleep apnea 01/18/2011 12/27/19 [...] (Prevnar) 05/02/2019 Pneumococcal Conjugate Vacci ne, 20-valent ([id number]) 10/21/2022 Pneumococcal Polysaccharide PPV23 (Pneumovax) 06/01/2010 Seasonal [...] Sign Reading Time Taken Comments Blood Pressure 110/60 10/28/2022 9:05 AM EST Pulse 76 10/28/2022 9:05 AM EST Temperature 36.2 C (97.1 F) 10/28/2022 9:05 AM ES T Respiratory Rate 18 10/28/2022 9:05 AM EST Oxygen Saturation 93% 10/28/2022 9:05 AM EST Inhaled Oxygen Concentration - - [...] Progress Notes * July Poe RN - 10/28/2022 7:11 AM EST [facility] Mainframe Developer Visit Date: 10/28/2022 Time: 8:31 AM Name: Shaina Bustos : 1955 Current Concerns: Pt seen for BALDOMERO visit #2 Admitted to [facility] 10/19 - 10/20/22 for aspiration episode at home - had a nurse visit and pt was eating ramen noodles and started choking - nurse was unable to clear her airway so EMS was called andthey were able to pull more noodles from her throat Continues on flagyl and cefdinir for prior admission d/t cough Pt reports her cough has improved since she has been home Bowels moved yesterday - reports several times, large amount Wheezing noted of upper lobes ST from home health scheduled to start today, per pt/ ST from [facility] did come during visit and recommends nectar thick liquids Also getting dentures next week Physical Exam: BP 110/60 | Pulse 76 | Temp 36.2 C (97.1 F) | Resp 18 | SpO2 93% Pain 0 Physical Exam Constitutional: General: She is not in acute distress. Appearance: She is obese. Cardiovascular: Rate and Rhythm: Normal rate and regular rhythm. Pulses: Normal pulses. Heart sounds: Normal heart sounds. Pulmonary: Effort: Pulmonary effort is normal. Breath sounds: Wheezing (b/l upper lobes) present. Abdominal: General: Bowel sounds are normal. Palpations: Abdomen is soft. Musculoskeletal: Right lower leg: Edema present. Left lower leg: Edema present. Skin: General: Skin is warm and dry. Neurological: Mental Status: She is alert and oriented to person, place, and time. Problems/Symptoms: Review of Systems Constitutional: Positive for fatigue. HENT: Negative. Eyes: Negative. Respiratory: Positive for cough. Cardiovascular: Positive for leg swelling. Gastrointestinal: Negative. Endocrine: Negative. Genitourinary: Negative. Musculoskeletal: Positive for gait problem (non-ambulatory). Skin: Negative. Psychiatric/Behavioral: Negative. Medication Reconciliation: (See medication list) Does patient take medications as ordered: Yes Patient Well Being: PHQ2/9: No questionnaires available. No change in living situation Denies falls - chairbound, uses svetlana lift Cg from [facility] information technology coordinator Home Care is starting today - scheduled to be coming M-F 9am - 5pm [facility]-10 Completed this Visit: Yes. [facility]-10: Reason Completed: Status post ED visit/hospital admission [facility]-10 Interventions: Fall education provided, reviewed/provided Fall brochure Advanced Care Planning: No documentation, ACP on file. Patient's Goals of Care: 1. Remain in home 2. Get a cg patient manager 3. Get out more Reinforcement/Education: Reviewed HF [...] if no bm within 24 hrs Complete both courses of abx until gone Home Interventions Provided: Home Intervention: Other; Eval Reinforced current Plan of Care, including self-management and medication regimen Patient's 'Red Flags': 1. Increased cough with yellow/green sputum 2. Change in mental status/confusion 3. No bm in 24 hrs Patient Needs to Remember: Call [facility] at with any new or worsening health concerns or problems, red flag symptoms. Referrals Needed: Other none Follow Up: Is there cellular connectivity/connectivity in the home? Yes Does the patient have internet in the home? Yes Patient encouraged to call the intake phone number for all urgent but not emergent issues. Is the patient new to [facility] within the last 30 days? No, Assess appropriateness for upcoming telehealth visits. Cancel telehealth visits & schedule home visit with care steamship agent(s)as indicated. Provider is in agreement with Plan of Care: Yes Scheduled to follow up with patient per BALDOMERO schedule. July Poe RN 10/28/2022 8:31 AM documented in this encounter Plan of Treatment Upcoming Encounters Date Type Specialty Care Team Description 10/29/2022 Scheduled Telephone [facility], Nurse [address] [place] [address] 10/30/2022 Scheduled Telephone [facility], Nurse [facility] [address] [facility] [place] [address] 11/01/2022 [facility]medicine [facility] Aleyda Campos PA-C 132 [facility] [place] [address] Kaylee Khan, Community Health Dial Polisher [address] [place] [address] 11/02/2022 Office Visit Pharmacy Pharmacist1, [facility] Sp [address] [place] [address] 11/04/2022 Hem/Onc Treatment Hematology Oncology [place], Chair 10 Hem Onc Scenery [address] [place] [address] 11/09/2022 [facility] Visit [facility]oe [facility] [place] [address] 12/06/2022 Office Visit Gastroenterology Lyssa Stout CRNP [address] [facility] [place] [address] 12/08/2022 Office Visit Hematology Oncology Tono Sanchez MD 200 [place] [address] 02/10/2023 Office Visit Sleep Disorders Love Francisco, [address] [place] [address] 03/01/2023 PulmDiagnostic Pulmonary Function [place], Pft [address] [place] [address] Scheduled Procedures Name Priority Associated Diagnoses Date/Ti [...] this encounter Medical Devices Implanted Type Area Wood Molder Device Identifier Shelf Expiration Date Model / Serial / Lot Microtech Sure Clip Implanted:Qty: 2 on 06/03/2020 by Janis Hatch DO at OR [facility] Clip N/A: Colon 04/21/2022 [facility]-F-26-2 35-C-R / / [id number] documented as of this encounter Additional Health Concerns Infection Onset Date Last Indicated Resolved Time MRSA 09/17/2022 09/17/2022 documented as of this encounter Advance Directives Documents on File Type Date Recorded Patient Post Office Clerk Expl anation Advance Directives and Living Will 04/29/2021 ADVANCE DIRECTIVE / LIVING WILL LIVING WILL AND HEALTH CARE POA Power of Buckshot Swage Operator 04/29/2021 POWER OF A TTORNEY HEALTH [...] the patient have Health Care Power of Buckshot Swage Operator? No Code Status History Code Status Date Activated Date Inactivated Comments Full Code 12/27/2021 2:50 PM 12/27/2021 8:02 PM This order reflects the patients wishes and were consensually agreed upon. Question Answer Comments Discussion of Advance Directives occurred with: Not Discussed Does the patient have a Living Will? No Does the patient have Health Care Power of Buckshot Swage Operator? No Full Code 03/31/2021 8:57 PM [...] Syed Bustos Spouse Emergency Contact Care Teams Retail Shift Supervisor Relationship Specialty Start Date End Date Vanita Dunn MD [address] [place] [address] PCP - General Family Medicine 03/16/21 documented as of this encounter"
--- OUTSIDE RECORDS SUMMARY | 2023-05-10 17:19 | External Medical Summary | Summary of Care ---
Author Name Unknown Organization [facility] Address [place] [address] Care Team Providers Care It Manager Name Role Phone Vanita Dunn MD Primary Care Provid er Reason for Visit * Reason Onset Date Comments [facility]: Maintenance 10/26/2022 Encounter Details Date Type Department Care Team Description 10/26/2022 Telephone [facility], [address] [place] [address] Aleyda Vela, Community [facility]: Maintenance Allergies Active Allergy Reactions Severity Noted Date Comments Adhesive Tape Itching 04/29/2020 Penicillins Rash 02/12/2008 Penicillin G 07/20/2018 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 documented as of this encounter (statuses as of 10/26/2022) Medications Medication Sig Dispensed Refills Start Date End Date Status nystatin (NYSTOP) 198231 UNIT/GM powder Apply topically to affected area 3 times a day. 60 g 1 10/16/2019 Active Dexcom G6 Retail Seasonal Specialist Device Use as directed. To test blood sugars 4 times a day Dx E11.9 1 Each 0 09/14/2020 Active Dexcom G6 Transmitter Use as directed. To test blood sugars 4 times a day. Change every 90 days. Dx E11.9 1 Each 3 09/14/2020 Active OneTouch Verio In Vitro Strip (Glucose Blood) TESTING once daily 100 Strip 3 10/29/2020 Active OneTouch Delica Plus [id number] TESTING once daily 100 Each 3 10/29/2020 [...] A1c goal of less than 7.0% ([facility]) USE TO INJECT INSULIN FOUR TIMES DAILY. 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 30 Tablet 0 10/18/2022 Active Hospital, Clinic, or Other Facility Administered [...] as of this encounter (statuses as of 10/26/2022) Active Problems Problem Noted Date Pancytopenia 04/29/2022 Chronic diastolic (congestive) heart jayime lure 09/13/2021 Last Assessment & Plan: No [...] operations supervisor plan is made -continue lexapro Impaired mobility and ADLs 04/04/2019 Wheelchair dependent 12/21/2018 HTAD on CPAP 12/26/2017 Cirrhosis of liver 11/20/2017 [...] as of this encounter (statuses as of 10/26/2022) Resolved Problems Problem Noted Date Resolved Date [...] pain 01/24/2012 01/17/2017 Genetic Sleep Disorder Research Other*[id number] 05/13/2011 04/07/2016 Obstructive sleep apnea 01/18/2011 12/27/19 [...] as of this encounter (statuses as of 10/26/2022) Immunizations Name Administration Dates Next Due COVID-19 mRNA, LNP-s, No Pre serve, 2-Dose Series (Moderna) 01/05/2022,07/26/2021,12/21/2020,11/09 HEP A - Hepatitis A (Adult > 18 yrs) 09/24/2018, 03/26/2018 Hepatitis B, 20+ yrs 09/24/2018,04/23/2018,03/26 Pneumococcal Conjugate Vacc, 13 Valent (Prevnar) 05/02/2019 Pneumococcal Conjugate Vacci ne, 20-valent ([id number]) 10/21/2022 Pneumococcal Polysaccharide PPV23 (Pneumovax) 06/01/2010 Seasonal [...] Miscellaneous Notes * Telephone Encounter - Aleyda Vela [facility] - 10/26/2022 11:59 AM EST Rescheduled patient to video visit for Aleyda Campos 9:30 Kaylee Winston / Aleyda Campos Scheduled Nurse visit with July for 10/28/2022 @ 8:30 am THAD Moran documented in this encounter Plan of Treatment Upcoming Encounters Date Type Specialty Care Team Description 10/26/2022 Pharmacy Pharmacy Pharmacist1, [facility] Sp [address] [place] [address] Type 2 diabetes mellitus with hemoglobin A1c goal of less than 8.0% ([facility])* 10/28/2022 Home Visit [facility] July Poe, RN 132 [place] [address] 10/28/2022 Office Visit Pharmacy Pharmacist1, [facility] [address] [place] [address] 11/01/2022 Telemedicine [facility] Aleyda Campos PA-C [facility] [address] Kaylee Khan, Community [facility] [address] [place] [address] 11/04/2022 Hem/Onc Treatment Hematology Oncology [place], Chair 10 Hem Onc [facility] [address] 12/06/2022 Office Visit Gastroenterology Lyssa Stout CRNP 132 [facility] [address] 12/08/2022 Office Visit Hematology Oncology Tono Sanchez MD 200 [place] [address] 02/10/2023 Office Visit Sleep Disorders Love Francisco DO 132 [facility] [place] [address] 03/01/2023 PulmDiagnostic Pulmonary Function [place], Pft [address] [facility] [place] [address] Scheduled Procedures Name Priority Associated Diagnoses Date/Ti [...] this encounter Medical Devices Implanted Type Area Towel Folder Device Identifier Shelf Expiration Date Model / Serial / Lot Microtech Sure Clip Implanted:Qty: 2 on 06/03/2020 by Janis Hatch DO at OR [facility] Clip N/A: Colon 04/21/2022 [facility]-F-26-2 35-C-R / / [id number] documented as of this encounter Additional Health Concerns Infection Onset Date Last Indicated Resolved Time MRSA 09/17/2022 09/17/2022 documented as of this encounter Advance Directives Documents on File Type Date Recorded Patient Red Hat Engineer Expl anation Advance Directives and Living Will 04/29/2021 ADVANCE DIRECTIVE / LIVING WILL LIVING WILL AND HEALTH CARE POA Power of Assistant Baseball Coach 04/29/2021 POWER OF A TTORNEY [...] the patient have Health Care Power of Assistant Baseball Coach? No Code Status History Code Status Date Activated Date Inactivated Comments Full Code 12/27/2021 2:50 PM 12/27/2021 8:02 PM This order reflects the patients wishes and were consensually agreed upon. Question Answer Comments Discussion of Advance Directives occurred with: Not Discussed Does the patient have a Living Will? No Does the patient have Health Care Power of Assistant Baseball Coach? No Full Code 03/31/2021 8:57 [...] Syed Bustos Spouse Emergency Contact Care Teams It Manager Relationship Specialty Start Date End Date Vanita Dunn MD [address] [place] [phone] PCP - General Family Medicine 03/16/21 documented as of this encounter
--- OUTSIDE RECORDS SUMMARY | 2023-05-10 17:19 | External Medical Summary | Summary of Care ---
Author Name Unknown Organization [place] [address] Care Team Providers Care Bread Panner Name Role Phone Vanita Dunn MD Primary Care Provid er Reason for Visit * Reason Comments eRx-Medication Refill Encounter Details Date Type Department Care Team Description 10/28/2022 Refill [facility] [address] [place] [address] Vanita Dunn MD [address] [place] [address] Allergies Active Allergy Reactions Severity Noted Date Comments Adhesive Tape Itching 04/29/2020 Penicillins Rash 02/12/2008 Penicillin G 07/20/2018 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 documented as of this encounter (statuses as of 10/28/2022) Medications Medication Sig Dispensed Refills Start Date End Date Status nystatin (NYSTOP) 903983 UNIT/GM powder Apply topically to affected area 3 times a day. 60 g 1 10/16/2019 Active Dexcom G6 Field Operations Farm Manager Device Use as directed. To [...] Strip 3 10/29/2020 Active OneTouch Delica Plus [id number] TESTING once daily 100 Each 3 10/29/2020 [...] of less than 8.0% ([facility]) Inject 27 units subcutaneously at [...] oxyCODONE HCl 5 MG Oral Tablet (Oxy IR)Indications:Flavor Extractor kai pain syndrome Take 1 Tablet by [...] situation. 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 if a terminal press operator plan is made -continue lexapro Impaired [...] pain 01/24/2012 01/17/2017 Genetic Sleep Disorder Research Other*[id number] 05/13/2011 04/07/2016 Obstructive sleep apnea 01/18/2011 12/27/19 [...] (Prevnar) 05/02/2019 Pneumococcal Conjugate Vacci ne, 20-valent ([id number]) 10/21/2022 Pneumococcal Polysaccharide PPV23 (Pneumovax) 06/01/2010 Seasonal [...] Miscellaneous Notes * Telephone Encounter - Lizzie Suh RPh - 10/28/2022 8:12 PM ESTRefused Prescriptions: Disp Refills Lactulose 10 GM/15ML Oral Solution (Constu* 0 Sig: take 45 ml by mouth 3 times a day.Refused By: LIZZIE SUH for Refusal: Duplicate Request documented in this encounter Plan of Treatment Upcoming Encounters Date Type Specialty Care Team Description 10/29/2022 Scheduled Telephone [facility], Nurse [address] [place] [address] 10/30/2022 Scheduled Telephone [facility], Nurse Brady Chavez 132 [facility] [place] [address] 11/01/2022 Telemedicine [facility] [place], Aleyda Escobar PA-C 132 [facility] [place] [address] Kaylee Khan, Community Health Help Desk Supervisor [address] [place] [address] 11/02/2022 Office Visit Pharmacy Pharmacist1, [facility] 200 [place] [address] 11/04/2022 Hem/Onc Treatment Hematology Oncology [place], Chair [address] [address] 11/09/2022 Home Visit [facility] July Poe RN 132 [facility] [place] [address] 12/06/2022 Office Visit Gastroenterology Lyssa Stout CRNP 132 [facility] [place] [address] 12/08/2022 Office Visit Hematology Oncology Tono Sanchez MD 200 [place] [address] 02/10/2023 Office Visit Sleep Disorders Love Francisco DO [facility] [place] [address] 03/01/2023 PulmDiagnostic Pulmonary Function [place], Pft [facility] [place] [address] Scheduled Procedures Name Priority Associated Diagnoses Date/Ti [...] this encounter Medical Devices Implanted Type Area Weaver Hand Device Identifier Shelf Expiration Date Model / Serial / Lot Microtech Sure Clip Implanted:Qty: 2 on 06/03/2020 by Jains Hatch DO at OR [facility] Clip N/A: Colon 04/21/2022 [facility]2 35-C-R / / [id number] documented as of this encounter Additional Health Concerns Infection Onset Date Last Indicated Resolved Time MRSA 09/17/2022 09/17/2022 documented as of this encounter Advance Directives Documents on File Type Date Recorded Patient Ingot Header Expl anation Advance Directives and Living Will 04/29/2021 ADVANCE DIRECTIVE / LIVING WILL LIVING WILL AND HEALTH CARE POA Power of Parachute Officer 04/29/2021 POWER OF A TTORNEY HEALTH [...] the patient have Health Care Power of Parachute Officer? No Code Status History Code Status Date Activated Date Inactivated Comments Full Code 12/27/2021 2:50 PM 12/27/2021 8:02 PM This order reflects the patients wishes and were consensually agreed upon. Question Answer Comments Discussion of Advance Directives occurred with: Not Discussed Does the patient have a Living Will? No Does the patient have Health Care Power of Parachute Officer? No Full Code 03/31/2021 8:57 PM [...] Syed Bustos Spouse Emergency Contact Care Teams Bread Panner Relationship Specialty Start Date End Date Vanita Dunn MD [address] [facility] [address] PCP - General Family Medicine 03/16/21 documented as of this encounter
--- OUTSIDE RECORDS SUMMARY | 2023-05-10 17:19 | External Medical Summary | Summary of Care ---
Author Name Unknown Organization [place] [address] Care Team Providers Care Work From Home Name Role Phone Kojo Dunn MD Primary Care Provid er Reason for Visit * Reason Comments eRx-Medication Refill Encounter Details Date Type Department Care Team Description 10/27/[address] [id number] [facility] [address] Allergies Active Allergy Reactions Severity Noted Date Comments Adhesive Tape Itching 04/29/2020 Penicillins Rash 02/12/2008 Penicillin G 07/20/2018 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 documented as of this encounter (statuses as of 10/28/2022) Medications Medication Sig Dispensed Refills Start Date End Date Status nystatin (NYSTOP) 144847 UNIT/GM powder Apply topically to affected area 3 times a day. 60 g 1 0 Active Dexcom G6 Leather Goods I Assembler Device Use as directed. To test blood sugars 4 times a day Dx E11.9 1 Each 0 1 Active Dexcom G6 Transmitter Use as directed. To test blood sugars 4 times a day. Change every 90 days. Dx E11.9 1 Each 3 1 Active OneTouch Verio In Vitro Strip (Glucose Blood) TESTING once daily 100 Strip 3 1 Active OneTouch Delica Plus [id number] TESTING once daily 100 Each 3 1 [...] oxyCODONE HCl 5 MG Oral Tablet (Oxy IR)Indications:Web Specialist kai pain syndrome Take 1 Tablet [...] a assisted plan is made -continue lexapro Impaired mobility [...] pain 01/24/2012 01/17/2017 Genetic Sleep Disorder Research Other*[id number] 05/13/2011 04/07/2016 Obstructive sleep apnea 01/18/2011 12/27/19 [...] (Prevnar) 05/02/2019 Pneumococcal Conjugate Vacci ne, 20-valent ([id number]) 10/21/2022 Pneumococcal Polysaccharide PPV23 (Pneumovax) 06/01/2010 Seasonal [...] Telephone Encounter - Kojo Dunn MD - 10/28/2022 10:44 AM EST Refused Prescriptions: Disp Refills Lactulose 10 GM/15ML Oral Solution (Constu*1200 mL5 Sig: take 45 ml by mouth 3 times a day. Refused By: KOJO DUNN Reason for Refusal: Managed by another physician * Telephone Encounter - Kojo Dunn MD - 10/28/2022 10:44 AM EST Forwarding to GI * Telephone Encounter - Shelly Hirsch LPN - 10/27/2022 11:25 AM ESTPending Prescriptions: Disp Refills Lactulose 10 GM/15ML Oral Solution (Constu*1200 mL5 Sig: take 45 ml by mouth 3 times a day. * Telephone Encounter - Shelly Hirsch LPN - 10/27/2022 11:24 AM EST Pending Prescriptions: Disp Refills Lactulose 10 GM/15ML Oral Solution (Const*1200 mL5 Sig: take 45 ml by mouth 3 times a day. Last Visit: 10/21/2022 (in office), 09/17/2021 (telemedicine) Next Visit: Visit date not found Last date the medication was ordered: 09/16/22 Patient Active Problem List Diagnosis Code Spinal stenosis of lumbar region without neurogenic claudication M48.061 Cerebral palsy (HCC) G80.9 HTN, goal below 130/80 I10 NG (nonalcoholic steatohepatitis) K75.81 Constipation K59.00 Venous stasis dermatitis of both lower extremities I87.2 DDD (degenerative disc disease), lumbar M51.36 Lymphedema I89.0 Type 2 diabetes mellitus with hemoglobin A1c goal of less than 8.0% ([facility]) E11.9 Vitamin D deficiency E55.9 Restrictive lung disease J98.4 Obesity, morbid (more than 100 lbs over ideal weight or BMI > 40) ([facility]) E66.01 Dyslipidemia E78.5 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 R39.81 Acquired hypothyroidism E03.9 Chronic pain syndrome G89.4 MEDICATION USE AGREEMENT [id number] Cirrhosis of liver (HCC) K74.60 THAD on CPAP G47.33, Z99.89 Wheelchair dependent Z99.3 DM type 2 with diabetic peripheral neuropathy (HCC) E11.42 Primary insomnia F51.01 Recurrent major depressive disorder, in partial remission (HCC) F33.41 Impaired mobility and ADLs Z74.09, Z78.9 Gastroesophageal reflux disease K21.9 Fibromyalgia M79.7 Thrombocytopenia (HCC) D69.6 Iron deficiency anemia due to chronic blood loss D50.0 Esophageal varices (HCC) I85.00 Portal hypertensive gastropathy (HCC) K76.6, K31.89 Chronic diastolic (congestive) heart failure (HCC) I50.32 Pancytopenia (HCC) D61.818 Labs: Lab Results Component Value Date/Time CREATININE - [facility] 0.6 08/30/2022 03:52 PM CREATININE - [facility] 0.6 09/24/2020 05:16 PM CREATININE, RANDOM URINE - [facility] 131 03/30/2022 02:02 PM CREATININE, RANDOM URINE - [facility] 115 01/11/2019 01:29 PM CREATININE-OUTSIDE LAB 0.72 12/18/2021 12:00 AM Lab Results Component Value Date/Time POTASSIUM - [facility] 4.6 08/30/2022 03:52 PM POTASSIUM - [facility] 4.0 09/24/2020 05:16 [...] Results Component Value Date/Time ALT - [facility] 65 (H) 08/30/2022 03:52 PM ALT - [facility] 23 08/21/2020 04:35 PM ALTERNARIA IGE - [facility] <0.20 08/19/2021 04:18 PM Hemoglobin AIC Results: Lab Results Component Value Date/Time HEMOGLOBIN A1C - [facility] 7.4 (H) 05/19/2022 02:49 PM HEMOGLOBIN A1C - [facility] 6.9 (H) 01/24/2022 08:34 AM HEMOGLOBIN A1C - [facility] 7.1 (H) 08/19/2021 04:19 PM HEMOGLOBIN A1C - [facility] 9.9 (H) 07/06/2020 05:24 AM HEMOGLOBIN A1C - [facility] 11.0 (H) 05/26/2020 04:44 AM HEMOGLOBIN A1C - [facility] 9.9 (H) 04/28/2020 04:37 PM * Telephone Encounter - Sowmya Poon - 10/27/2022 10:19 AM ESTPending Prescriptions: Disp Refills Lactulose 10 GM/15ML Oral Solution [Pharma*1,200 *0 Sig: take 45 ml by mouth 3 times a day. documented in this encounter Plan of Treatment Upcoming Encounters Date Type Specialty Care Team Description 11/01/2022 Telemedicine [facility] Aleyda Campos PA-C 132 [facility] [place] [address] Kaylee Khan, Community Health Supervisor Gas Meter Repair [address] [place], [place] [phone] 11/02/2022 Office Visit Pharmacy Pharmacist1, [facility] [address] [facility], [place] [id number] 11/04/2022 Hem/Onc Treatment Hematology Oncology [place], Chair [address] [facility] 200 [facility] [place] [address] 11/09/2022 Home Visit [facility] July Poe, RN 132 [facility] [place] [address] 12/06/2022 Office Visit Gastroenterology Lyssa Stout CRNP 132 [facility] [place] [address] 12/08/2022 Office Visit Hematology Oncology Tono Sanchez MD 200 [facility] [address] 02/10/2023 Office Visit Sleep Disorders Love Francisco, 132 [facility] [place] [address] 03/01/2023 PulmDiagnostic Pulmonary Function [place], Pft [address] [place] [address] Scheduled Procedures Name Priority Associated Diagnoses Date/Ti [...] this encounter Medical Devices Implanted Type Area Blocker Polishing Device Identifier Shelf Expiration Date Model / Serial / Lot Microtech Sure Clip Implanted:Qty: 2 on 06/03/2020 by Janis Hatch DO at OR [facility] Clip N/A: Colon 04/21/2022 [facility]-F-26-2 35-C-R / / [id number] documented as of this encounter Additional Health Concerns Infection Onset Date Last Indicated Resolved Time MRSA 09/17/2022 09/17/2022 documented as of this encounter Advance Directives Documents on File Type Date Recorded 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 No Code Status History Code Status Date Activated Date Inactivated Comments Full Code 12/27/2021 2:50 PM 12/27/2021 8:02 PM This order reflects the patients wishes and were consensually agreed upon. Question Answer Comments Discussion of Advance Directives occurred with: Not Discussed Does the patient have a Living Will? No Does the patient have Health Care Power of Industrial Maintenance Electrician? No Full Code 03/31/2021 8:57 PM 04/03/2021 [...] Syed Bustos Spouse Emergency Contact Care Teams Work From Home Relationship Specialty Start Date End Date Kojo Dunn MD [address] [place] [address] PCP - General Family Medicine 03/16/21 documented as of this encounter
--- OUTSIDE RECORDS SUMMARY | 2023-05-10 17:19 | External Medical Summary | Summary of Care ---
Author Name Unknown Organization [facility] Address [place] [address] Care Team Providers Care Clinical Review Nurse Name Role Phone Vanita Dunn MD Primary Care Provid er Reason for Visit * Reason Onset Date Comments [facility]: Acute 10/28/2022 Encounter Details Date Type Department Care Team Description 10/28/2022 Telephone [facility], [facility] 132 [facility] [place] [address] [facility], Nurse [facility] 132 [facility] [place] [address] [facility]: Acute Allergies Active Allergy Reactions Severity Noted Date Comments Adhesive Tape Itching 04/29/2020 Penicillins Rash 02/12/2008 Penicillin G 07/20/2018 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 documented as of this encounter (statuses as of 10/28/2022) Medications Medication Sig Dispensed Refills Start Date End Date Status nystatin (NYSTOP) 104373 UNIT/GM powder Apply topically to affected area 3 times a day. 60 g 1 10/16/2019 Active Dexcom G6 Marble Rubber Device Use as directed. To test blood sugars 4 times a day Dx E11.9 1 Each 0 09/14/2020 Active Dexcom G6 Transmitter Use as directed. To test blood sugars 4 times a day. Change every 90 days. Dx E11.9 1 Each 3 09/14/2020 Active OneTouch Verio In Vitro Strip (Glucose Blood) TESTING once daily 100 Strip 3 10/29/2020 Active OneTouch Delica Plus [id number] TESTING once daily 100 Each 3 10/29/2020 [...] ([facility]) Inject 27 units subcutaneously at bedtime and [...] oxyCODONE HCl 5 MG Oral Tablet (Oxy IR)Indications:Concrete Analyst kai pain syndrome Take 1 Tablet [...] pain 01/24/2012 01/17/2017 Genetic Sleep Disorder Research Other*[id number] 05/13/2011 04/07/2016 Obstructive sleep apnea 01/18/2011 12/27/19 [...] (Prevnar) 05/02/2019 Pneumococcal Conjugate Vacci ne, 20-valent ([id number]) 10/21/2022 Pneumococcal Polysaccharide PPV23 (Pneumovax) 06/01/2010 Seasonal [...] Alexander RN - 10/28/2022 12:36 PM EST [facility] command and control specialist Acute Call Date: 10/28/2022 Time: 12:36 PM Name: Shaina Bustos : 1955 Caller: Syed Bustos Relationship to spouse No chief complaint on file. HPI: Shaina Bustos is a 67 year old female whose spouse is calling [facility] Intake to report : Also [...] spouse is unable to locate the NTG. command and control specialist also instructed spouse to give patient HHN [...] she cant breathe and cant locate NTG, command and control specialist called 911. Spoke to Gavin at [facility] call center. States patient will most likely be transported to [facility]. Treatment/Plan: (need to report) Level of call: Emergent, EMS contacted- spoke to EMS/ Gavin at [facility] call center for [facility]. Routed to [facility] , care team. Please order HHN tubings, set ups and order new NTG prescription Scheduled 24/48 hr f/u calls. Shannan Alexander RN [facility] Director It [facility] Call back instructions provided to patient. documented in this encounter Plan of Treatment Upcoming Encounters Date Type Specialty Care Team Description 10/29/2022 Scheduled Telephone [facility], Nurse [address] [place] [address] 10/30/2022 Scheduled Telephone [facility] [place], Nurse Brady Chavez 132 [facility] [place] [address] 11/01/2022 Telemedicine [facility] [place], Aleyda Escobar PA-C 132 [facility] [place] [address] Kaylee Khan, Community Health School Bus Driver/Teacher Assistant [address] [place] [address] 11/02/2022 Office Visit Pharmacy Pharmacist1, [facility] 200 [place] [address] 11/04/2022 Hem/Onc Treatment Hematology Oncology [place], Chair 10 Hem Onc [address] [place] [address] 11/09/2022 Home Visit [facility] July Poe RN 132 [facility] [place] [address] 12/06/2022 Office Visit [facility]astroenterology [facility]out CRNP [facility] [place] [address] 12/08/2022 Office Visit Hematology Oncology Tono Sanchez MD 200 [place] [address] 02/10/2023 Office Visit Sleep Disorders Love Francisco DO 132 [place] [address] 03/01/2023 PulmDiagnostic Pulmonary Function [place], Pft [address] [place] [address] Scheduled Procedures Name Priority Associated Diagnoses Date/Ti [...] this encounter Medical Devices Implanted Type Area Tip Cementer Device Identifier Shelf Expiration Date Model / Serial / Lot Microtech Sure Clip Implanted:Qty: 2 on 06/03/2020 by Janis Hatch DO at OR [facility] Clip N/A: Colon 04/21/2022 [facility]-F-26-2 35-C-R / / [id number] documented as of this encounter Additional Health Concerns Infection Onset Date Last Indicated Resolved Time MRSA 09/17/2022 09/17/2022 documented as of this encounter Advance Directives Documents on File Type Date Recorded 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 No Code Status History Code Status Date Activated Date Inactivated Comments Full Code 12/27/2021 2:50 PM 12/27/2021 8:02 PM This order reflects the patients wishes and were consensually agreed upon. Question Answer Comments Discussion of Advance Directives occurred with: Not Discussed Does the patient have a Living Will? No Does the patient have Health Care Power of Director Operating? No Full Code 03/31/2021 8:57 PM 04/03/2021 [...] Syed Bustos Spouse Emergency Contact Care Teams Clinical Review Nurse Relationship Specialty Start Date End Date Vanita Dunn MD [address] [place] [facility] [place] [address] PCP - General Family Medicine 03/16/21 documented as of this encounter
--- OUTSIDE RECORDS SUMMARY | 2023-05-10 17:22 | External Medical Summary | Summary of Care ---
Author Name Unknown Organization [facility] [place] [address] Care Team Providers Care Gizzard Puller Name Role Phone Vanita Dunn MD Primary Care Provid er Reason for Visit * Reason Onset Date Comments Medication Refill 10/17/2022 Encounter Details Date Type Department Care Team Description 10/17/2022 [facility] 132 [facility] [place] [address] July Poe, RN 132 [facility] [place] [address] Bronchitis, complicated; NAFLD (nonalcoholic fatty liver disease); Other cirrhosis of liver (HCC) Allergies Active Allergy Reactions Severity Noted Date Comments Adhesive Tape Itching 04/29/2020 Penicillins Rash 02/12/2008 Penicillin G 07/20/2018 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 documented as of this encounter (statuses as of 10/20/2022) Medications Medication Sig Dispensed Refills Start Date End Date Status nystatin (NYSTOP) 706897 UNIT/GM powder Apply topically to affected area 3 times a day. 60 g 1 0 Active Dexcom G6 Crimp Setter Device Use as directed. To test blood sugars 4 times a day Dx E11.9 1 Each 0 1 Active Dexcom G6 Transmitter Use as directed. To test blood sugars 4 times a day. Change every 90 days. Dx E11.9 1 Each 3 1 Active Zolo TechnologiesTouch Verio In Vitro Strip (Glucose Blood) TESTING once daily 100 Strip 3 1 Active Zolo TechnologiesTouch Delica Plus [id number] TESTING once daily 100 Each 3 1 [...] extremity swelling 90 Tablet 3 2 Active Lactulose 10 GM/15ML Oral Solution (Constulose) [...] before bedtime. 360 Tablet 1 3 Active Pantoprazole Sodium 20 MG Oral Tablet Delayed Release (Protonix)Indicatio ns:NAFLD (nonalcoholic fatty liver disease),Other cirrhosis of liver (HCC) TAKE 2 TABLETS BY MOUTH TWICE DAILY 360 Tablet 1 2 10/17/19 23 Discontinu ed(Refill) Hospital, Clinic, or Other [...] as of this encounter (statuses as of 10/20/2022) Active Problems Problem Noted Date Pancytopenia 04/29/2022 [...] a penitentiary plan is made -continue lexapro Impaired mobility [...] as of this encounter (statuses as of 10/20/2022) Resolved Problems Problem Noted Date Resolved Date [...] pain 01/24/2012 01/17/2017 Genetic Sleep Disorder Research Other*[id number] 05/13/2011 04/07/2016 Obstructive sleep apnea 01/18/2011 12/27/19 [...] as of this encounter (statuses as of 10/20/2022) Immunizations Name Administration Dates Next Due COVID-19 [...] Telephone Encounter - Josh Main PA-C - 10/18/2022 5:24 PM ESTSigned Prescriptions: Disp Refills Benzonatate 200 MG Oral Capsule 30 Cap*1 Sig: Take 1 Capsule by mouth 3 times a day as needed for Cough. Authorizing Provider: JOSH MAIN Pantoprazole Sodium 20 MG Oral Tablet Kandi*360 Ta*1 Sig: Take 2 Tablets by mouth in the morning and 2 Tablets before bedtime. Authorizing Provider: JOSH MAIN * Telephone Encounter - July Poe RN - 10/17/2022 5:12 PM EST Pt in need of refill of Tessalon Perles and Pantoprazole Orders pended for your review and signature. Pharmacy is [facility] in [place]. Thank you. documented in this encounter Plan of Treatment Upcoming Encounters Date Type Specialty Care Team Description 10/21/2022 Office Visit Family Medicine Vanita Dunn MD [address] [place] [address] 10/26/2022 Home Visit [facility] Aleyda Campos PA-C 132 [facility] [place] [address] 10/26/2022 Pharmacy Pharmacy Pharmacist1, [facility] [address] [place] [address] 11/04/2022 Hem/Onc Treatment Hematology Oncology [place], Chair [address] [address] 12/06/2022 Office Visit Gastroenterology Lyssa Stout CRNP 132 [facility] [place] [address] 12/08/2022 Office Visit Hematology Oncology Tono Sanchez MD [address] [place] [address] 02/10/2023 Office Visit Sleep Disorders Love Francisco DO [address] [place] [address] 03/01/2023 PulmDiagnostic Pulmonary Function [place], Pft [address] [address] Scheduled Procedures Name Priority Associated Diagnoses Date/Ti me ESOPHAGOGASTRODUODENOSCOPY ( EGD), FLEXIBLE, TRANSORAL, DIAGNOSTIC Recall Esophagitis COLONOSCOPY FLEXIBLE PROXIMAL DIAGNOSTIC Recall History of colonic polyps Health Maintenance Due Date Last Done Comments DXA Scan 1955 DIABETES-EYE EXAM 06/12/2019 06/12/2018, , 06/12/2018, Additional history exists Pneumococcal Vaccine: 65+ Years (3 - PPSV23 if available, else PCV20) 2020 05/02/2019, 06/01/2010 Zoster Vaccines (3 of 3) 06/23/2020 04/28/2020, [...] Completed , 06/10/2021, 06/01/2020, Additional history exists GARDASIL-HPV IMMUNIZATION SERIES Aged Out No longer eligible based on patient's age to complete this topic MENINGOCOCCAL (MENACTRA/MENVEO) Aged Out No longer eligible based on patient's age to complete this topic documented as of this encounter Medical Devices Implanted Type Area Manager Center Device Identifier Shelf Expiration Date Model / Serial / Lot Microtech Sure Clip Implanted:Qty: 2 on 06/03/2020 by Janis Hatch DO at OR [facility] Clip N/A: Colon 04/21/2022 [facility]-F-26-2 35-C-R / / [id number] documented as of this encounter Visit Diagnoses Diagnosis Bronchitis, complicated Bronchitis, not specified as acute or chronic NAFLD (nonalcoholic fatty liver disease) Other chronic nonalcoholic liver disease Other cirrhosis of liver (HCC) documented in this encounter Additional Health Concerns Infection Onset Date Last Indicated Resolved Time MRSA 09/17/2022 09/17/2022 documented as of this encounter Advance Directives Documents on File Type Date Recorded Patient Appraiser Auditor Expl anation Advance Directives and Living Will 04/29/2021 ADVANCE DIRECTIVE / LIVING WILL LIVING WILL AND HEALTH CARE POA Power of Instrumentation Instructor 04/29/2021 POWER OF A [facility] [...] the patient have Health Care Power of Instrumentation Instructor? No Code Status History Code Status Date Activated Date Inactivated Comments Full Code 12/27/2021 2:50 PM 12/27/2021 8:02 PM This order reflects the patients wishes and were consensually agreed upon. Question Answer Comments Discussion of Advance Directives occurred with: Not Discussed Does the patient have a Living Will? No Does the patient have Health Care Power of Instrumentation Instructor? No Full Code 03/31/2021 8:57 PM 04/03/2021 4:30 PM This order reflects the patients wishes and were consensually agreed upon. Question Answer Comments Discussion of Advance Directives occurred with: Patient Full Code 03/21/2021 10:44 PM 03/24/2021 4:43 PM Thi s order reflects the patients wishes and were [...] Syed Bustos Spouse Emergency Contact Care Teams Gizzard Puller Relationship Specialty Start Date End Date Vanita Dunn MD [address] [place] [address] PCP - General Family Medicine 03/16/21 documented as of this encounter
--- OUTSIDE RECORDS SUMMARY | 2023-05-10 17:22 | External Medical Summary | Summary of Care ---
Author Name Unknown Organization [place] [address] Care Team Providers Care Financial Data Analyst Name Role Phone Vanita Dunn MD Primary Care Provid er Reason for Visit * Reason Onset Date Comments Order Request 10/21/2022 Encounter Details Date Type Department Care Team Description 10/21/2022 Telephone [facility] [address] [place] [address] Vanita Dunn MD [address] [place] [address] Order Request Allergies Active Allergy Reactions Severity Noted Date Comments Adhesive Tape Itching 04/29/2020 Penicillins Rash 02/12/2008 Penicillin G 07/20/2018 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 documented as of this encounter (statuses as of 10/21/2022) Medications Medication Sig Dispensed Refills Start Date End Date Status nystatin (NYSTOP) 790762 UNIT/GM powder Apply topically to affected area 3 times a day. 60 g 1 10/16/2019 Active Dexcom G6 Hardware Design Engineer Device Use as directed. To test blood sugars 4 times a day Dx E11.9 1 Each 0 09/14/2020 Active Dexcom G6 Transmitter Use as directed. To test blood sugars 4 times a day. Change every 90 days. Dx E11.9 1 Each 3 09/14/2020 Active OneTouch Verio In Vitro Strip (Glucose Blood) TESTING once daily 100 Strip 3 10/29/2020 Active OneTouch Delica Plus [id number] TESTING once daily 100 Each 3 10/29/2020 [...] of less than 8.0% ([facility]) 35 Units at breakfast, 39 Units [...] oxyCODONE HCl 5 MG Oral Tablet (Oxy IR)Indications:Aquatic Habitat Biologist kai pain syndrome Take 1 Tablet by [...] as of this encounter (statuses as of 10/21/2022) Active Problems Problem Noted Date Pancytopenia 04/29/2022 [...] current situation. 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 if a detention plan is made -continue lexapro Impaired mobility [...] as of this encounter (statuses as of 10/21/2022) Resolved Problems Problem Noted Date Resolved Date [...] pain 01/24/2012 01/17/2017 Genetic Sleep Disorder Research Other*[id number] 05/13/2011 04/07/2016 Obstructive sleep apnea 01/18/2011 12/27/19 [...] as of this encounter (statuses as of 10/21/2022) Immunizations Name Administration Dates Next Due COVID-19 [...] Telephone Encounter - Vanita Dunn MD - 10/21/2022 2:04 PM EST Seen today, see OV note and orders. * Telephone Encounter - Shelly Hirsch LPN - 10/21/2022 1:29 PM EST Sarah calling from [facility]. Patient is back home. Kept her for observation and sent her back home after last visit when nurse found her choking. Adding a nurse visit for tomorrow since she is home from the hospital. Will add another weeks worth of visits. Adding speech therapy to help prevent choking in the future. Will send over for signature. documented in this encounter Plan of Treatment Upcoming Encounters Date Type Specialty Care Team Description 10/26/2022 Home Visit [facility] Aleyda Campos PA-C [address] [place] [address] 10/26/2022 Pharmacy Pharmacy Pharmacist1, [facility] [address] [place] [address] 10/28/2022 [facility] Visit [facility]Pe[facility] [address] [facility] [place] [address] 11/04/2022 Hem/Onc Treatment Hematology Oncology [place], Chair 10 Hem Onc [facility] [address] [facility], [place] [address] 12/06/2022 Office Visit Gastroenterology Lyssa Stout CRNP [address] [facility] [place] [address] 12/08/2022 Office Visit Hematology Oncology Tono Sanchez MD [address] [facility], [place] [address] 02/10/2023 Office Visit Sleep Disorders Love Francisco DO [address] [place] [address] 03/01/2023 PulmDiagnostic Pulmonary Function [place], Pft [address] [place] [address] Scheduled Procedures Name Priority Associated Diagnoses Date/Ti [...] encounter Medical Devices Implanted Type Area Mattress Renovator Device Identifier Shelf Expiration Date Model / Serial / Lot Microtech Sure Clip Implanted:Qty: 2 on 06/03/2020 by Janis Hatch DO at OR [facility] Clip N/A: Colon 04/21/2022 [facility]-F-26-2 35-C-R / / [id number] documented as of this encounter Additional Health Concerns Infection Onset Date Last Indicated Resolved Time MRSA 09/17/2022 09/17/2022 documented as of this encounter Advance Directives Documents on File Type Date Recorded Patient Hotel Recreational Facilities Manager Expl anation Advance Directives and Living Will 04/29/2021 ADVANCE DIRECTIVE / LIVING WILL LIVING WILL AND HEALTH CARE POA Power of Blueprint Developer 04/29/2021 POWER OF A [facility] [...] the patient have Health Care Power of Blueprint Developer? No Code Status History Code Status Date Activated Date Inactivated Comments Full Code 12/27/2021 2:50 PM 12/27/2021 8:02 PM This order reflects the patients wishes and were consensually agreed upon. Question Answer Comments Discussion of Advance Directives occurred with: Not Discussed Does the patient have a Living Will? No Does the patient have Health Care Power of Blueprint Developer? No Full Code 03/31/2021 8:57 PM [...] Agents on File Name Relationship [facility] Communication Syed Bustos Spouse Emergency Contact Care Teams Financial Data Analyst Relationship Specialty Start Date End Date Vanita Dunn MD [address], [place] [id number] PCP - General Family Medicine 03/16/21 documented as of this encounter
--- OUTSIDE RECORDS SUMMARY | 2023-05-10 17:22 | External Medical Summary | Summary of Care ---
Author Name Unknown Organization [place] [address] Care Team Providers Care Medical Leader Name Role Phone Vanita Dunn MD Primary Care Provid er Reason for Visit * Reason Onset Date Comments Appointment 10/21/2022 Encounter Details Date Type Department Care Team Description 10/21/2022 Telephone [facility], [facility] [address] [facility] [place] [address] Services, Scheduling [address] [place] [address] Appointment (///) Allergies Active Allergy Reactions Severity Noted Date Comments Adhesive Tape Itching 04/29/2020 Penicillins Rash 02/12/2008 Penicillin G 07/20/2018 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 documented as of this encounter (statuses as of 10/21/2022) Medications Medication Sig Dispensed Refills Start Date End Date Status nystatin (NYSTOP) 203678 UNIT/GM powder Apply topically to affected area 3 times a day. 60 g 1 10/16/2019 Active Dexcom G6 Stem Threshing Machine Operator Device Use as directed. To [...] Strip 3 10/29/2020 Active OneTouch Delica Plus [id number] TESTING once daily 100 Each 3 10/29/2020 [...] than 8.0% ([facility]) 35 Units at breakfast, 39 Units before [...] than 8.0% ([facility]) Inject 27 units subcutaneously at bedtime and [...] oxyCODONE HCl 5 MG Oral Tablet (Oxy IR)Indications:Restaurant And Bar Manager kai pain syndrome Take 1 Tablet [...] current situation. 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 Called lmom to confirm if 10/28 at 10:00am is a good date and time. documented in this encounter Plan of Treatment Upcoming Encounters Date Type Specialty Care Team Description 10/26/2022 Home Visit [facility] Aleyda Campos PA-C [address] [place] [address] 10/26/2022 Pharmacy Pharmacy Pharmacist1, [facility] [address] [place] [address] 10/28/2022 Home Visit [facility] July Poe RN [address] [place] [address] 11/04/2022 Hem/Onc Treatment Hematology Oncology [place], Chair 10 Hem Onc [place] [address] [place] [address] 12/06/2022 Office Visit Gastroenterology Lyssa Stout CRNP [address] [facility] [place] [address] 12/08/2022 Office Visit Hematology Oncology Tono Sanchez MD [address] [place] [address] 02/10/2023 Office Visit Sleep Disorders Love Francisco, DO [address] [facility] [place] [address] 03/01/2023 PulmDiagnostic Pulmonary Function [place], Pft [address] [place] [address] Scheduled Procedures Name Priority Associated Diagnoses Date/Ti [...] this encounter Medical Devices Implanted Type Area Online Journalist Device Identifier Shelf Expiration Date Model / Serial / Lot Microtech Sure Clip Implanted:Qty: 2 on 06/03/2020 by Janis Hatch DO at [facility] Clip N/A: Colon 04/21/[address] [facility]-F-26-2 35-C-R / / [id number] documented as of this encounter Additional Health Concerns Infection Onset Date Last Indicated Resolved Time MRSA 09/17/2022 09/17/2022 documented as of this encounter Advance Directives Documents on File Type Date Recorded Patient Scale Tester Expl anation Advance Directives and Living Will 04/29/2021 ADVANCE DIRECTIVE / LIVING WILL LIVING WILL AND HEALTH CARE POA Power of Home Health Lpn 04/29/2021 POWER OF A [facility] [...] the patient have Health Care Power of Home Health Lpn? No Code Status History Code Status Date Activated Date Inactivated Comments Full Code 12/27/2021 2:50 PM 12/27/2021 8:02 PM This order reflects the patients wishes and were consensually agreed upon. Question Answer Comments Discussion of Advance Directives occurred with: Not Discussed Does the patient have a Living Will? No Does the patient have Health Care Power of Home Health Lpn? No Full Code 03/31/2021 8:57 PM 04/03/2021 [...] Syed Bustos Spouse Emergency Contact Care Teams Medical Leader Relationship Specialty Start Date End Date Vanita Dunn MD [address] [place] [address] PCP - General Family Medicine 03/16/21 documented as of this encounter
--- OUTSIDE RECORDS SUMMARY | 2023-05-10 17:22 | External Medical Summary | Summary of Care ---
Author Name Unknown Organization [place] [address] Care Team Providers Care Consultant Nurse Name Role Phone Vanita Dunn MD Primary Care Provid er Reason for Visit * Reason Comments Appointment Encounter Details Date Type Department Care Team Description 10/26/2022 Pharmacy Pharmacy, [facility] [address] [facility] [place] [id number] Pharmacist1, [facility] [address] [facility] [place] [id number] Type 2 diabetes mellitus with hemoglobin A1c [...] Start Date End Date Status nystatin (NYSTOP) 384977 UNIT/GM powder Apply topically to affected area 3 times a day. 60 g 1 10/16/2019 Active Dexcom G6 Senior Recruitment Consultant Device Use as directed. To test blood sugars 4 times a day Dx E11.9 1 Each 0 09/14/2020 Active Dexcom G6 Transmitter Use as directed. To test blood sugars 4 times a day. Change every 90 days. Dx E11.9 1 Each 3 09/14/2020 Active OneTouch Verio In Vitro Strip (Glucose Blood) TESTING once daily 100 Strip 3 10/29/2020 Active OneTouch Delica Plus [id number] TESTING once daily 100 Each 3 10/29/2020 [...] oxyCODONE HCl 5 MG Oral Tablet (Oxy IR)Indications:Shake Sawyer kai pain syndrome Take 1 Tablet by [...] pain 01/24/2012 01/17/2017 Genetic Sleep Disorder Research Other*[id number] 05/13/2011 04/07/2016 Obstructive sleep apnea 01/18/2011 12/27/19 [...] (Prevnar) 05/02/2019 Pneumococcal Conjugate Vacci ne, 20-valent ([id number]) 10/21/2022 Pneumococcal Polysaccharide PPV23 (Pneumovax) 06/01/2010 Seasonal [...] as of this encounter Progress Notes * Renetta Young manager wound care - 10/26/2022 9:18 AM EST Patient Phone Numbers Left message on patients answering machine to schedule MTDM appointment for DM management. Clinic will follow up again in 4 week(s). [Attempt # 2] Thank you, Renetta Young Apartment Rental Agent 10/26/2022,9:18 AM documented in this encounter Plan of Treatment Upcoming Encounters Date Type Specialty Care Team Description 10/26/2022 Home Visit [facility] Aleyda Campos PA-C [address] [place] [address] 10/28/2022 Home Visit [facility] July Poe RN [address] [place] [address] 10/28/2022 Office Visit Pharmacy Pharmacist1, [facility] [address] [place] [address] 11/04/2022 Hem/Onc Treatment Hematology Oncology [place], Chair 10 Hem Onc [facility] 200 [place] [address] 12/06/2022 Office Visit [facility]ology [facility] [place] [address] 12/08/2022 Office Visit Hematology Oncology Tono Sanchez MD [address] [place] [address] 02/10/2023 Office Visit Sleep Disorders Love Francisco, [address] [place] [address] 03/01/2023 PulmDiagnostic Pulmonary Function [place], [facility] [place] [address] Scheduled Procedures Name Priority Associated Diagnoses Date/Ti [...] this encounter Medical Devices Implanted Type Area Bus Starter Device Identifier Shelf Expiration Date Model / Serial / Lot Microtech Sure Clip Implanted:Qty: 2 on 06/03/2020 by Hatch, Marten B, DO at OR [facility] Clip N/A: Colon 04/21/2022 [facility]-F-26-2 35-C-R / / [id number] documented as of this encounter Visit Diagnoses Diagnosis Type 2 diabetes mellitus with hemoglobin A1c goal of less than 8.0% (HCC)- Primary documented in this encounter Additional Health Concerns Infection Onset Date Last Indicated Resolved Time MRSA 09/17/2022 09/17/2022 documented as of this encounter Advance Directives Documents on File Type Date Recorded Patient Butter Liquefier Expl anation Advance Directives and Living Will 04/29/2021 ADVANCE DIRECTIVE / LIVING WILL LIVING WILL AND HEALTH CARE POA Power of Telesales Agent 04/29/2021 POWER OF A [facility] [...] the patient have Health Care Power of Telesales Agent? No Code Status History Code Status Date Activated Date Inactivated Comments Full Code 12/27/2021 2:50 PM 12/27/2021 8:02 PM This order reflects the patients wishes and were consensually agreed upon. Question Answer Comments Discussion of Advance Directives occurred with: Not Discussed Does the patient have a Living Will? No Does the patient have Health Care Power of Telesales Agent? No Full Code 03/31/2021 8:57 PM 04/03/2021 [...] File Name Relationship Healthcare Agent [facility] Communication Syed Bustos Spouse Emergency Contact Care Teams Consultant Nurse Relationship Specialty Start Date End Date Vanita Dunn MD [address] [place] [phone] PCP - General Family Medicine 03/16/21 documented as of this encounter
--- OUTSIDE RECORDS SUMMARY | 2023-05-10 17:22 | External Medical Summary | Summary of Care ---
Author Name Unknown Organization [place] [address] Care Team Providers Care Machine Folder Name Role Phone Selene Fishman MD Primary Care Provid er Reason for Referral * Evaluate & Treat - Unlimited Visits (Within 30 days (routine)) - Pending Review Specialty Diagnoses / Procedures Referred By Contadrián t Referred To Contact HOME CARE / Home Care Diagnoses Aspiration into airway, subsequent encounter Selene Fishman MD [address] [place] [address] Referral ID Status Reason Start Date Expiration Date Visits Requested Visits Authorized [id number] Pending Review Specialty Services Required 10/21/2022 999 999 Question Answer Referral Priority Within 30 days (routine) Comments Documentation of Pwvx-kw-Ccsn Encounter Addendum Patient Name: Shaina Bustos I certify that this patient is under my care and that I, or a nurse practitioner or physician's billing assistant working with me, had a rwoh-an-pjom encounter that meets the physician mqcz-mw-mwpe encounter requirements with this patient on: 10/21/22 The encounter with the patient was in whole, or in part, for the following medical condition, which is the primary reason for home health care (List medical condition): Convalescence from acute illness I certify that, based on my findings, the following services are medically necessary home health services: Nursing and Speech Language Pathology To provide the following care/treatments: (All hospitalists not following the patient after discharge should complete this section): speech therapy Primary Care Physician to follow home care plan of care after discharge: selene fishman MD My clinical findings support the need for the above services because: aspiration event Further, I certify that my clinical findings support that this patient is homebound (i.e. Absences from home require considerable and taxing effort and are for medical reasons or gnosticism services or infrequently or of short duration when for other reason) because: Pt is wheel chair bound and does not walk, h/o CP Physician Signature: Date of Signature: Physician Printed Name: Selene Fishman MD Reason for Visit * Reason Onset Date Comments Hospital Follow-Up [facility] 10/20/2022 Hospital Follow-Up 10/21/2022 Encounter Details Date Type Department Care Team Description 10/21/2022 Office Visit [facility] [address] [place] [address] Selene Fishman MD [address] [place] [address] Hospital discharge follow-up*; Aspiration into airway, subsequent encounter; Need for pneumococcal vaccination; Restrictive lung disease; THAD on CPAP; Secondary esophageal varices without bleeding (HCC); Chronic diastolic (congestive) heart failure (HCC); Obesity, morbid (more than 100 lbs over ideal weight or BMI > 40) (HCC) Allergies Active Allergy Reactions Severity Noted Date Comments Adhesive Tape Itching 04/29/2020 Penicillins Rash 02/12/2008 Penicillin G 07/20/2018 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 documented as of this encounter (statuses as of 10/21/2022) Medications Medication Sig Dispensed Refills Start Date End Date Status nystatin (NYSTOP) 429999 UNIT/GM powder Apply topically to affected area 3 times a day. 60 g 1 10/16/2019 Active Dexcom G6 Retail Route Supervisor Device Use as directed. To test blood sugars 4 times a day Dx E11.9 1 Each 0 09/14/2020 Active Dexcom G6 Transmitter Use as directed. To test blood sugars 4 times a day. Change every 90 days. Dx E11.9 1 Each 3 09/14/2020 Active OneTouch Verio In Vitro Strip (Glucose Blood) TESTING once daily 100 Strip 3 10/29/2020 Active OneTouch Delica Plus [id number] TESTING once daily 100 Each 3 10/29/2020 [...] oxyCODONE HCl 5 MG Oral Tablet (Oxy IR)Indications:Dry Box Operator kai pain syndrome Take 1 Tablet [...] situation. 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 if a senior technical architect plan is made -continue lexapro Impaired mobility [...] pain 01/24/2012 01/17/2017 Genetic Sleep Disorder Research Other*[id number] 05/13/2011 04/07/2016 Obstructive sleep apnea 01/18/2011 12/27/19 [...] (Prevnar) 05/02/2019 Pneumococcal Conjugate Vacci ne, 20-valent ([id number]) 10/21/2022 Pneumococcal Polysaccharide PPV23 (Pneumovax) 06/01/2010 Seasonal [...] Sign Reading Time Taken Comments Blood Pressure 116/68 10/21/2022 1:48 PM EST Pulse 64 10/21/2022 1:48 PM EST Temperature 36.2 C (97.1 F) 10/21/2022 1:48 PM ES T Respiratory Rate - - Oxygen Saturation 95% 10/21/2022 1:48 PM EST Inhaled Oxygen Concentration - - [...] as of this encounter Progress Notes * Selene Fishman MD - 10/21/2022 2:06 PM EST ASSESSMENT / PLAN: Shaina Bustos is a 67 year old female with PMHx wheelchair bound, h/o CP, chronic diastolic HF, cirrhosis of liverNAFLDcomplicated by esoph varices and portal hypertensive gastropathy, T2DM, morbid obesity, htn, hld , THAD on CPAP,restrictive lung disease, moderate persistent asthma,and chronic pain/ - here for BALDOMERO - aspiration event while at home - see HPI for details - over all is at her baseline - does continue to have some coughing but her oxygenation is significantly improved since discharge (90--> 95 here today) - recommend she complete her cefdinir and flagyl which will also cover for anaerobic bugs in setting of aspiration - tessalon perles - oxycodone for pain prn. Speech referral placed per request of home health agency which is reasonable. Continue to follow moist/minced diet. Hospital discharge follow-up (Primary) - DISCH MED RECON CUR MED LIS Aspiration into airway, subsequent encounter - HOME HEALTH REFERRAL OP - DISCH MED RECON CUR MED LIS Need for pneumococcal vaccination - PNEUMOCOCCAL VACC, PCV20, IM ([id number]) - DISCH MED RECON CUR MED LIS Restrictive lung disease - DISCH MED RECON CUR MED LIS THAD on CPAP - DISCH MED RECON CUR MED LIS Secondary esophageal varices without bleeding (HCC) - DISCH MED RECON CUR MED LIS Chronic diastolic (congestive) heart failure (HCC) - DISCH MED RECON CUR MED LIS Obesity, morbid (more than 100 lbs over ideal weight or BMI > 40) (HCC) - DISCH MED RECON CUR MED LIS If needed, prefers contact by: Ok to leave message on phone: SUBJECTIVE: Nursing Notes: Tamara Fabian LPN 10/21/22 1353 Signed Chief Complaint Patient presents with Hospital Follow-Up [facility] 10/20/2022 Tamara Fabian LPN 10/21/22 1442 Signed Pre-Administration Time Out Procedure Performed: Yes Patient Identified (Ask Name/Date of ): Yes Does the patient have a fever greater than 101 degrees today? No Patient allergic to latex? No Has the patient ever fainted after receiving an injection? No VFC Stock: No Immunization(s) verified: Yes, Immunization Name: Prevnar 20 (PCV20), VIS Sheet(s) given: Yes Verified Side and Site: Yes Verified Shot(s) with Parent(s)/Patient: Yes HPI: Shaina Bustos is a 67 year old female. Here for BALDOMERO - 10/19 - 10/20/22 - came to hospital after choking episode earlier that day - cough worse in the last week leading up to choking episode - has been coughing and disrupting her sleep - bedbound and uses candace lift to transfer - after EMS pulled rukhsana carrasco from her throat, family and pt decided to observe over night - was started on cefdinir and flagyl on 10/13 with possible colitis - speech therapy was consulted and advised minced / moist diet. Home health continues to follow . Requesting orders for speech therapy. Today: she says she "still isn't feeling well" but cough is improved and she is able to sleep through the night now. adds that her mentation seems at her baseline. Patient Active Problem List Diagnosis Code Spinal stenosis of lumbar region without neurogenic claudication M48.061 Cerebral palsy (HCC) G80.9 HTN, goal below 130/80 I10 NG (nonalcoholic steatohepatitis) K75.81 Constipation K59.00 Venous stasis dermatitis of both lower extremities I87.2 DDD (degenerative disc disease), lumbar M51.36 Lymphedema I89.0 Type 2 diabetes mellitus with hemoglobin A1c goal of less than 8.0% ([facility]) E11.9 Vitamin D deficiency E55.9 Restrictive lung disease J98.4 Obesity, morbid (more than 100 lbs over ideal weight or BMI > 40) ([facility]) E66.01 Dyslipidemia E78.5 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 R39.81 Acquired hypothyroidism E03.9 Chronic pain syndrome G89.4 MEDICATION USE AGREEMENT [id number] Cirrhosis of liver ([facility]) K74.60 THAD on CPAP G47.33, Z99.89 Wheelchair dependent Z99.3 DM type 2 with diabetic peripheral neuropathy ([facility]) E11.42 Primary insomnia F51.01 Recurrent major depressive disorder, in partial remission ([facility]) F33.41 Impaired mobility and ADLs Z74.09, Z78.9 Gastroesophageal reflux disease K21.9 Fibromyalgia M79.7 Thrombocytopenia ([facility]) D69.6 Iron deficiency anemia due to chronic blood loss D50.0 Esophageal varices (HCC) I85.00 Portal hypertensive gastropathy (HCC) K76.6, K31.89 Chronic diastolic (congestive) heart failure (HCC) I50.32 Pancytopenia (HCC) D61.818 Current Outpatient Medications Medication Sig Dispense Refill nystatin (NYSTOP) 590069 UNIT/GM powder Apply topically to affected area 3 times a day. 60 g 1 Dexcom G6 Retail Route Supervisor Device Use as directed. To test blood sugars 4 times a day Dx E11.9 1 Each 0 Dexcom G6 Transmitter Use as directed. To test blood sugars 4 times a day. Change every 90 days. Dx E11.9 1 Each 3 OneTouch Verio In Vitro Strip (Glucose Blood) TESTING once daily 100 Strip 3 OneTouch Delica Plus [id number] TESTING once daily 100 Each 3 Nitroglycerin [...] ONCE DAILY BEFORE BREAKFAST 90 Capsule 1 traMADol HCl 50 MG Oral Tablet (Ultram) Take by mouth 2 Tablets every 6 hours as needed for Pain, Severe (abdominal pain). 40 Tablet 0 Silver sulfADIAZINE 1 % External Cream (Silvadene) [...] the morning and 1 Puff before bedtime. Furosemide 20 MG Oral Tablet (Lasix) TAKE 1 TABLET BY MOUTH DAILY as needed for lower extremityswelling 90 Tablet 3 Lactulose 10 GM/15ML Oral [...] 2 Tablets before bedtime. 360 Tablet 1 oxyCODONE HCl 5 MG Oral Tablet (Oxy IR) Take 1 Tablet by mouth every 6 hours as needed for Pain, Moderate or Pain, Severe. 30 Tablet 0 Current Facility-Administered Medications Medication Dose Route Frequency Provider Last Rate Last Admin Albuterol Sulfate (Proventil) (2.5 MG/3ML) 0.083% inhalation solution 2.5 mg 2.5 mg Nebulizer PRN William Morales PA-C Albuterol Sulfate (Proventil) (5 MG/ML) 0.5% *conc* inhalation solution 2.5 mg 2.5 mg NebulizerPRN William Morales PA-C OBJECTIVE: BP 116/68 | Pulse 64 | Temp 36.2 C (97.1 F) (Infrared ) | SpO2 95% Vitals reviewed and is normotensive afebrile and not tachycardic and not hypoxic General: No acute distress. Sitting in wheelchair Neuro: Alert Pleasant & interactive. Respiratory: Good inspiratory effort, no labored breathing. Some wheezing in bilateral upper lobes that improves with expectoration. CV: holosystolic murmur 3/6 no rubs or gallops HEENT: Conjunctivae appear clear. No swelling noted face or lips. Skin: No rash visible on exposed skin areas, normal coloration & appears dry. Psych: Normal affect. Fluent speech. Selene Fishman MD [address] [address] There are no Patient Instructions on file for this visit. documented in this encounter Nursing Notes * Tamara Fabian LPN - 10/21/2022 2:41 PM EST Pre-Administration Time Out Procedure Performed: Yes Patient Identified (Ask Name/Date of ): Yes Does the patient have a fever greater than 101 degrees today? No Patient allergic to latex? No Has the patient ever fainted after receiving an injection? No VFC Stock: No Immunization(s) verified: Yes, Immunization Name: Prevnar 20 (PCV20), VIS Sheet(s) given: Yes Verified Side and Site: Yes Verified Shot(s) with Parent(s)/Patient: Yes * Tamara Fabian LPN - 10/21/2022 1:47 PM EST Chief Complaint Patient presents with Hospital Follow-Up [facility] 10/20/2022 documented in this encounter Plan of Treatment Upcoming Encounters Date Type Specialty Care Team Description 10/26/2022 Home Visit [facility] Aleyda Campos PA-C [address] [place] [address] 10/26/2022 Pharmacy Pharmacy Pharmacist1, [facility] [address] [facility] [place] [address] 10/28/2022 Home Visit [facility] July Poe RN [address] [place] [address] [address] 11/04/2022 Hem/Onc Treatment Hematology Oncology [place], Chair 10 Hem Onc [address] [facility] [place] [address] 12/06/2022 Office Visit Gastroenterology Lyssa Stout CRNP [address] [facility] [place] [address] 12/08/2022 Office Visit Hematology Oncology Tono Sanchez MD [address] [place] [place] [address] 02/10/2023 Office Visit Sleep Disorders Love [place], [address] [place] [address] 03/01/2023 PulmDiagnostic Pulmonary Function [place], [address] [place] [address] Scheduled Procedures Name Priority Associated Diagnoses Date/Ti me ESOPHAGOGASTRODUODENOSCOPY ( EGD), FLEXIBLE, TRANSORAL, DIAGNOSTIC Recall Esophagitis COLONOSCOPY FLEXIBLE PROXIMAL DIAGNOSTIC Recall History of colonic polyps Scheduled Referrals Name Type Priority Associated Diagnoses Orde r Schedule HOME HEALTH REFERRAL OP Referral Within 30 days (routine) Aspiration into airway, subsequent encounter Ordered: 10/21/2022 Health Maintenance Due Date Last Done Comments [...] this encounter Medical Devices Implanted Type Area Jboss Architect Device Identifier Shelf Expiration Date Model / Serial / Lot Microtech Sure Clip Implanted:Qty: 2 on 06/03/2020 by Janis Hatch DO at OR [facility] Clip N/A: Colon 04/21/2022 ROC-F-26-2 35-C-R / / [id number] documented as of this encounter Visit Diagnoses Diagnosis Hospital discharge follow-up- Primary Other follow-up examination Aspiration into airway, subsequent encounter Need for pneumococcal vaccination Need for prophylactic vaccination against streptococcus pneumoniae (pneumococcus) Restrictive lung disease Other diseases of lung, not elsewhere classified THAD on CPAP Obstructive sleep apnea (adult) (pediatric) Secondary esophageal varices without bleeding (HCC) Esophageal varices without mention of bleeding in diseases classified elsewhere Chronic diastolic (congestive) heart failure (HCC) Obesity, morbid (more than 100 lbs over ideal weight or BMI > 40) (HCC) Morbid obesity documented in this encounter Additional Health Concerns Infection Onset Date Last Indicated Resolved Time MRSA 09/17/2022 09/17/2022 documented as of this encounter Advance Directives Documents on File Type Date Recorded Patient Letterset Press Set Up Operator Expl anation Advance Directives and Living Will 04/29/2021 ADVANCE DIRECTIVE / LIVING WILL LIVING WILL AND HEALTH CARE POA Power of Pulley Man 04/29/2021 POWER OF A TTORNEY HEALTH [...] the patient have Health Care Power of Pulley Man? No Code Status History Code Status Date Activated Date Inactivated Comments Full Code 12/27/2021 2:50 PM 12/27/2021 8:02 PM This order reflects the patients wishes and were consensually agreed upon. Question Answer Comments Discussion of Advance Directives occurred with: Not Discussed Does the patient have a Living Will? No Does the patient have Health Care Power of Pulley Man? No Full Code 03/31/2021 8:57 PM [...] on File Name Relationship Healthcare Agent [employer] Communication Syed Bustos Spouse Emergency Contact Care Teams Machine Folder Relationship Specialty Start Date End Date Selene Fishman MD [address] [place] [phone] PCP - General Family Medicine 03/16/21 documented as of this encounter
--- OUTSIDE RECORDS SUMMARY | 2023-05-10 17:23 | External Medical Summary | Summary of Care ---
Author Name Unknown Organization [facility] [place] [address] Care Team Providers Care Registered Nurse Maternal Child Name Role Phone Vanita Dunn MD Primary Care Provid er Reason for Visit * Reason Onset Date Comments [facility]: Maintenance 10/20/2022 Encounter Details Date Type Department Care Team Description 10/20/2022 Telephone [facility], [facility] [address] [facility] [place] [address] July Poe, RN [address] [facility] [place] [address] [facility]: Maintenance Allergies Active Allergy Reactions Severity Noted Date Comments Adhesive Tape Itching 04/29/2020 Penicillins Rash 02/12/2008 Penicillin G 07/20/2018 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 documented as of this encounter (statuses as of 10/20/2022) Medications Medication Sig Dispensed Refills Start Date End Date Status nystatin (NYSTOP) 407151 UNIT/GM powder Apply topically to affected area 3 times a day. 60 g 1 10/16/2019 Active Dexcom G6 Acid Washer Operator Device Use as directed. To test blood sugars 4 times a day Dx E11.9 1 Each 0 09/14/2020 Active Dexcom G6 Transmitter Use as directed. To test blood sugars 4 times a day. Change every 90 days. Dx E11.9 1 Each 3 09/14/2020 Active OneTouch Verio In Vitro Strip (Glucose Blood) TESTING once daily 100 Strip 3 10/29/2020 Active OneTouch Delica Plus [id number] TESTING once daily 100 Each 3 10/29/2020 [...] oxyCODONE HCl 5 MG Oral Tablet (Oxy IR)Indications:Navigation Teacher kai pain syndrome Take 1 Tablet [...] a custodial plan is made -continue lexapro Impaired mobility [...] pain 01/24/2012 01/17/2017 Genetic Sleep Disorder Research Other*[id number] 05/13/2011 04/07/2016 Obstructive sleep apnea 01/18/2011 12/27/19 [...] Telephone Encounter - July Poe RN - 10/20/2022 2:37 PM EST Spoke with and he reports that pt went to the hospital last evening for a "choking episode when eating supper." Called [facility] and confirmed that pt is admitted. Scheduling - Please add to hospital list to follow. Thank you. documented in this encounter Plan of Treatment Upcoming Encounters Date Type Specialty Care Team Description 10/21/2022 Office Visit Family [facility] [address] [facility] [phone] 10/26/2022 [facility] Visit [facility] Aleyda Campos PA-C [address] [facility] [place] [address] 10/26/2022 Pharmacy Pharmacy Pharmacist1, [facility] [address] [facility] [place] [address] 11/04/2022 Hem/Onc Treatment Hematology Oncology [place], Chair 10 Hem Onc [facility] [address] 12/06/2022 Office Visit Gastroenterology Lyssa Stout CRNP [address] [facility] [place] [address] 12/08/2022 Office Visit Hematology Oncology Tono Sanchez MD [address] [facility], [place] [address] 02/10/2023 Office Visit Sleep Disorders Love Francisco, [address] [facility] [place] [address] 03/01/2023 PulmDiagnostic Pulmonary Function [place], [address] [facility] [place] [address] Scheduled Procedures Name Priority Associated Diagnoses Date/Ti [...] this encounter Medical Devices Implanted Type Area Clinic Physician Device Identifier Shelf Expiration Date Model / Serial / Lot Microtech Sure Clip Implanted:Qty: 2 on 06/03/2020 by Janis Hatch, at OR [facility] Clip N/A: Colon 04/21/2022 ROCC-F-26-2 35-C-R / / [id number] documented as of this encounter Additional Health Concerns Infection Onset Date Last Indicated Resolved Time MRSA 09/17/2022 09/17/2022 documented as of this encounter Advance Directives Documents on File Type Date Recorded Patient Case Packer And Sealer Expl anation Advance Directives and Living Will 04/29/2021 ADVANCE DIRECTIVE / LIVING WILL LIVING WILL AND HEALTH CARE POA Power of Stabilizing Machine Operator 04/29/2021 POWER OF A TTORNEY [...] the patient have Health Care Power of Stabilizing Machine Operator? No Code Status History Code Status Date Activated Date Inactivated Comments Full Code 12/27/2021 2:50 PM 12/27/2021 8:02 PM This order reflects the patients wishes and were consensually agreed upon. Question Answer Comments Discussion of Advance Directives occurred with: Not Discussed Does the patient have a Living Will? No Does the patient have Health Care Power of Stabilizing Machine Operator? No Full Code 03/31/2021 8:57 [...] Agents on File Name Relationship [facility] Communication Syed Bustos Spouse Emergency Contact Care Teams Registered Nurse Maternal Child Relationship Specialty Start Date End Date Vanita Dunn MD [address] [place] [address] PCP - General Family Medicine 03/16/21 documented as of this encounter
--- OUTSIDE RECORDS SUMMARY | 2023-05-10 17:23 | External Medical Summary | Summary of Care ---
Author Name Unknown Organization [place] [address] Care Team Providers Care Bobbin Dumper Name Role Phone Vanita Dunn MD Primary Care Provid er Reason for Visit * Reason Comments [facility]: Maintenance Encounter Details Date Type Department Care Team Description 10/17/2022 Home Visit [facility], [facility] 132 [facility] [place] [address] July Poe, RN 132 [facility] [place] [address] Allergies Active Allergy Reactions Severity Noted Date Comments Adhesive Tape Itching 04/29/2020 Penicillins Rash 02/12/2008 Penicillin G 07/20/2018 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 documented as of this encounter (statuses as of 10/20/2022) Medications Medication Sig Dispensed Refills Start Date End Date Status nystatin (NYSTOP) 480243 UNIT/GM powder Apply topically to affected area 3 times a day. 60 g 1 10/16/19 20 Active Dexcom G6 Meter Reader Device Use as directed. To test blood [...] 3 10/29/19 21 Active OneTouch Delica Plus [id number] TESTING once daily 100 Each 3 10/29/19 [...] once weekly 6 mL 5 02/23/20 Active Aspirin 81 MG Oral Tablet Chewable CHEW AND SWALLOW 1 TABLET BY MOUTH ONCE DAILY 30 Tablet 8 03/12/20 22 Active Oxybutynin Chloride 5 MG Oral Tablet (Ditropan) TAKE 1 TABLET BY MOUTH TWICE DAILY 180 Tablet 1 04/10/20 Active Spironolactone 25 MG Oral Tablet (Aldactone) [...] MEAL 90 Tablet 1 07/29/20 22 Active Gabapentin 300 MG Oral Capsule (Neurontin)Indicat ions:DM type 2 with diabetic peripheral neuropathy (HCC),Diabetic foot (HCC) TAKE 1 CAPSULE BY MOUTH EVERY MORNING, 1 CAPSULE MIDDAY, AND 2 CAPSULES IN THE EVENING, MAY TAKE AN EXTRA DOSE IN THE MORNING AND MIDDAY IF NEEDED FOR PAIN MAX DAILY AMOUNT: 6 CAPSULES 360 Capsule 0 07/29/20 22 Active Isosorbide Mononitrate ER 30 [...] DAILY 90 Tablet 0 08/04/20 22 Active Fluticasone-Salmet jayme 250-50 MCG/ACT Inhalation Aerosol Powder Breath Activated Inhale 1 Puff by mouth in the morning and 1 Puff before bedtime. 0 Active Furosemide 20 MG Oral Tablet (Lasix) TAKE 1 TABLET BY MOUTH DAILY as needed for lower extremity swelling 90 Tablet 3 09/09/20 22 Active Lactulose 10 GM/15ML Oral Solution (Constulose) TAKE 30G (45ML) BY MOUTH 3 TIMES DAILY 1200 mL 0 09/16/19 23 Active Lantus SoloStar 100 UNIT/ML Subcutaneous [...] BY MOUTH TWICE DAILY 360 Tablet 1 05/09/20 22 023 Discontinued(Re fill) Benzonatate 200 MG Oral CapsuleIndications :Bronchitis, complicated Take by mouth 1 Capsule as needed in the morning AND 1 Capsule as needed at noon AND 1 Capsule as needed in the evening for Cough. 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 -continue lexapro Impaired [...] pain 01/24/2012 01/17/2017 Genetic Sleep Disorder Research Other*[id number] 05/13/2011 04/07/2016 Obstructive sleep apnea 01/18/2011 12/27/19 [...] Sign Reading Time Taken Comments Blood Pressure 122/76 10/17/2022 4:58 PM EST Pulse 68 10/17/2022 4:58 PM EST Temperature 37.7 C (99.9 F) 10/17/2022 4:58 PM ES T Respiratory Rate 18 10/17/2022 4:58 PM EST Oxygen Saturation 97% 10/17/2022 4:58 PM EST Inhaled Oxygen Concentration - - [...] Progress Notes * July Poe RN - 10/17/2022 4:55 PM EST [facility] [employer] Civil Engineer BALDOMERO Visit Date: 10/17/2022 Time: 4:55 PM Name: Shaina Bustos : 1955 Current Concerns: Pt seen for BALDOMERO and f/u of ED Visit Went to ED last night for increased cough, which was causing abdominal pain Her voice is hoarse and she complains of back pain also She was prescribed cefdinir 300mg bid x 10 days and metronidazole 500mg TID x 10 days She did not start these yet Sister in law went to pharmacy to pick them up. Confirmed with that she has been having several bowel movements a day and she has been drinking the lactulose - he reports she still tells him no sometimes but he encourages her to take and she usually does. and pt reports that they did call [facility] around 10pm at night and were advised to go to the ED Physical Exam: BP 122/76 | Pulse 68 | Temp 37.7 C (99.9 F) | Resp 18 | SpO2 97% Pain 3 Physical Exam Constitutional: Appearance: She is obese. She is ill-appearing. Cardiovascular: Rate and Rhythm: Normal rate and regular rhythm. Pulses: Normal pulses. Heart sounds: Normal heart sounds. Pulmonary: Effort: Pulmonary effort is normal. Breath sounds: Wheezing present. Abdominal: General: Bowel sounds are normal. Palpations: Abdomen is soft. Musculoskeletal: Right lower leg: Edema (+1) present. Left lower leg: Edema (+1) present. Skin: General: Skin is warm and dry. Coloration: Skin is pale. Neurological: Mental Status: She is alert and oriented to person, place, and time. Problems/Symptoms: Review of Systems Constitutional: Positive for fatigue. HENT: Positive for congestion. Eyes: Negative. Respiratory: Positive for cough and shortness of breath. Cardiovascular: Positive for leg swelling. Gastrointestinal: Negative. Endocrine: Negative. Genitourinary: Negative. Musculoskeletal: Positive for arthralgias and gait problem (non-ambulatory - uses svetlana lift). Skin: Negative. Neurological: Positive for weakness (general). Psychiatric/Behavioral: Negative. Medication Reconciliation: (See medication list) Does patient take medications as ordered: Yes Patient Well Being: PHQ2/9: No questionnaires available. No change in living situation They are still waiting to hear if they are getting a cg through [facility] Completed this Visit: Yes. [facility]: Reason Completed: Status post ED visit/hospital admission [facility] Interventions: Fall education provided, reviewed/provided Fall brochure Advanced Care Planning: No documentation, ACP on file. Patient's Goals of Care: 1. Remain in home 2. Get a caregiver time stamp assembler 3. Get out more Reinforcement/Education: Reviewed HF [...] 24 hrs Patient Needs to Remember: Call [facility] at with any new or worsening [...] visits & schedule home visit with care rehabilitation team lead(s)as indicated. Provider is in agreement with Plan of Care: Yes Scheduled to follow up with patient in 3 days. July Poe RN 10/17/2022 4:55 PM documented in this encounter Plan of Treatment Upcoming Encounters Date Type Specialty Care Team Description 10/21/2022 Office Visit Family Medicine Vanita Dunn MD [address] [place] [address] 10/26/2022 Home Visit [facility] Aleyda Campos PA-C 132 [facility] [place] [address] 10/26/2022 Pharmacy Pharmacy Pharmacist1, [facility] [address] 11/04/2022 Hem/Onc Treatment Hematology Oncology [place], Chair 10 Hem Onc [address] [address] 12/06/2022 Office Visit Gastroenterology Lyssa Stout CRNP 132 [facility] [place] [address] 12/08/2022 Office Visit [facility]ematology [facility]cology [facility] [address] 02/10/2023 Office Visit Sleep Disorders Love Francisco, [address] [place] [address] 03/01/2023 PulmDiagnostic Pulmonary Function [place], Pft [address] [place] [address] Scheduled Procedures Name Priority Associated Diagnoses Date/Ti [...] this encounter Medical Devices Implanted Type Area Nutrition Services Associate Device Identifier Shelf Expiration Date Model / Serial / Lot Microtech Sure Clip Implanted:Qty: 2 on 06/03/2020 by Janis Hatch DO at OR [facility] Clip N/A: Colon 04/21/2022 [facility]-F-26-2 35-C-R / / [id number] documented as of this encounter Additional Health Concerns Infection Onset Date Last Indicated Resolved Time MRSA 09/17/2022 09/17/2022 documented as of this encounter Advance Directives Documents on File Type Date Recorded Patient Finish Mixer Expl anation Advance Directives and Living Will 04/29/2021 ADVANCE DIRECTIVE / LIVING WILL LIVING WILL AND HEALTH CARE POA Power of Machine Tool Builder 04/29/2021 POWER OF A [facility] C[facility] [...] the patient have Health Care Power of Machine Tool Builder? No Code Status History Code Status Date Activated Date Inactivated Comments Full Code 12/27/2021 2:50 PM 12/27/2021 8:02 PM This order reflects the patients wishes and were consensually agreed upon. Question Answer Comments Discussion of Advance Directives occurred with: Not Discussed Does the patient have a Living Will? No Does the patient have Health Care Power of Machine Tool Builder? No Full Code 03/31/2021 8:57 PM 04/03/2021 [...] Syed Bustos Spouse Emergency Contact Care Teams Bobbin Dumper Relationship Specialty Start Date End Date Vanita Dunn MD [address] [place] [address] PCP - General Family Medicine 03/16/21 documented as of this encounter"
--- OUTSIDE RECORDS SUMMARY | 2023-05-10 17:23 | External Medical Summary | Summary of Care ---
Author Name Unknown Organization [place] [address] Care Team Providers Care Slate Trimmer Name Role Phone Vanita Dunn MD Primary Care Provid er Reason for Visit * Reason Onset Date Comments Encounter Created in Error 10/14/2022 Encounter Details Date Type Department Care Team Description 10/14/2022 Scheduled Telephone [facility], [facility] [address] [facility] [place] [address] JerodCollinsen [address] [place] [address] Canceled (Clinician Appt Cancel Appt Not Needed) Allergies Active Allergy Reactions Severity Noted Date Comments Adhesive Tape Itching 04/29/2020 Penicillins Rash 02/12/2008 Penicillin G 07/20/2018 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 documented as of this encounter (statuses as of 10/17/2022) Medications Medication Sig Dispensed Refills Start Date End Date Status nystatin (NYSTOP) 262700 UNIT/GM powder Apply topically to affected area 3 times a day. 60 g 1 10/16/2019 Active Dexcom G6 Planning Manager Device Use as directed. To test blood sugars 4 times a day Dx E11.9 1 Each 0 09/14/2020 Active Dexcom G6 Transmitter Use as directed. To test blood sugars 4 times a day. Change every 90 days. Dx E11.9 1 Each 3 09/14/2020 Active OneTouch Verio In Vitro Strip (Glucose Blood) TESTING once daily 100 Strip 3 10/29/2020 Active [facility] Delica Plus [id number] TESTING once daily 100 Each 3 10/29/2020 [...] the morning. 180 Tablet 3 05/06/2022 Active Pantoprazole Sodium 20 MG Oral Tablet Delayed Release (Protonix)Indicatio ns:NAFLD (nonalcoholic fatty liver disease),Other cirrhosis of liver (HCC) TAKE 2 TABLETS BY MOUTH TWICE DAILY 360 Tablet 1 05/09/2022 Active traZODone HCl 50 MG Oral Tablet (Desyrel)Indication s:Sleep disturbances TAKE 1 TABLET BY MOUTH AT BEDTIME 90 Tablet 3 05/12/2022 Active Benzonatate 200 MG Oral CapsuleIndications: Bronchitis, complicated Take by mouth 1 Capsule as needed in the morning AND 1 Capsule as needed at noon AND 1 Capsule as needed in the evening for Cough. 30 Capsule 1 05/13/2022 Active Levothyroxine Sodium 150 MCG Oral Tablet [...] hemoglobin A1c goal of less than 8.0% ([facility]) 35 Units at breakfast, 39 [...] hemoglobin A1c goal of less than 8.0% ([facility]) Inject 27 units subcutaneously at bedtime and 27 units subcutaneously in the morning. 45 mL 3 10/13/2022 Active Hospital, Clinic, or Other Facility Administered [...] as of this encounter (statuses as of 10/17/2022) Active Problems Problem Noted Date Hypertensive heart disease with congesti ve heart failure 04/29/2022 Pancytopenia 04/29/2022 Chronic diastolic (congestive) heart jaymie [...] situation. 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 if a local intermodal truck driver plan is made -continue lexapro Impaired mobility [...] as of this encounter (statuses as of 10/17/2022) Resolved Problems Problem Noted Date Resolved Date Food insecurity 09/20/2021 02/24/2022 Overview: Per Fresh [...] pain 01/24/2012 01/17/2017 Genetic Sleep Disorder Research Other*[id number] 05/13/2011 04/07/2016 Obstructive sleep apnea 01/18/2011 12/27/19 [...] as of this encounter (statuses as of 10/17/2022) Immunizations Name Administration Dates Next Due COVID-19 [...] Encounters Date Type Specialty Care Team Description 10/17/2022 Scheduled Telephone [facility] Kamini Newsome [address] [facility] [place] [address] 10/20/2022 Home Visit [facility] July Poe RN 132 [place] [address] 10/26/2022 Home Visit [facility] Aleyda Campos PA-C 132 [place] [address] 10/26/2022 Pharmacy Pharmacy Pharmacist1, [facility] [place] [address] 11/04/2022 Hem/Onc Treatment Hematology Oncology [place], Chair 1 Hem Onc [facility] 200 [facility] [place] [address] 12/06/2022 Office Visit Gastroenterology Lyssa Stout CRNP 132 [place] [address] 12/08/2022 Office Visit Hematology Oncology Tono Sanchez MD 200 [facility] [place] [address] 02/10/2023 Office Visit Sleep Disorders Love Francisco, DO 132 [facility] [place] [address] 03/01/2023 PulmDiagnostic Pulmonary Function [place], Pft [address] [place] [address] Scheduled Procedures Name Priority Associated Diagnoses Date/Ti [...] this encounter Medical Devices Implanted Type Area Pediatric Hospitalist Device Identifier Shelf Expiration Date Model / Serial / Lot Microtech Sure Clip Implanted:Qty: 2 on 06/03/2020 by Janis Hatch DO at OR [facility] Clip N/A: Colon 04/21/2022 [facility]-F-26-2 35-C-R / / [id number] documented as of this encounter Additional Health Concerns Infection Onset Date Last Indicated Resolved Time MRSA 09/17/2022 09/17/2022 documented as of this encounter Advance Directives Documents on File Type Date Recorded Patient Client Business Manager Expl anation Advance Directives and Living Will 04/29/2021 ADVANCE DIRECTIVE / LIVING WILL LIVING WILL AND HEALTH CARE POA Power of Conditioning Machine Operator 04/29/2021 POWER OF A TTORNEY [...] the patient have Health Care Power of Conditioning Machine Operator? No Code Status History Code Status Date Activated Date Inactivated Comments Full Code 12/27/2021 2:50 PM 12/27/2021 8:02 PM This order reflects the patients wishes and were consensually agreed upon. Question Answer Comments Discussion of Advance Directives occurred with: Not Discussed Does the patient have a Living Will? No Does the patient have Health Care Power of Conditioning Machine Operator? No Full Code 03/31/2021 8:57 [...] Agents on File Name Relationship Healthcare Agent [facility] p Communication Syed Bustos Spouse Emergency Contact Care Teams Slate Trimmer Relationship Specialty Start Date End Date Vanita Dunn MD [address] [place], [place] [id number] PCP - General Family Medicine 03/16/21 documented as of this encounter
--- OUTSIDE RECORDS SUMMARY | 2023-05-10 17:24 | External Medical Summary | Summary of Care ---
Author Name Unknown Organization [place] [address] Care Team Providers Care Music Instructor Name Role Phone Vanita Dunn MD Primary Care Provid er Reason for Visit * Reason Onset Date Comments Pain 10/15/2022 Encounter Details Date Type Department Care Team Description 10/15/2022 Telephone Family Practice [address] [place] [address] [facility], Floor [address]tr[address] [place] [address] Dustin Radford MD [address] [place] [address] Pain Allergies Active Allergy Reactions Severity Noted Date Comments Adhesive Tape Itching 04/29/2020 Penicillins Rash 02/12/2008 Penicillin G 07/20/2018 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 documented as of this encounter (statuses as of 10/15/2022) Medications Medication Sig Dispensed Refills Start Date End Date Status nystatin (NYSTOP) 718173 UNIT/GM powder Apply topically to affected area 3 times a day. 60 g 1 10/16/2019 Active Dexcom G6 Biomass Power Plant Superintendent Device Use as directed. To test blood sugars 4 times a day Dx E11.9 1 Each 0 09/14/2020 Active Dexcom G6 Transmitter Use as directed. To test blood sugars 4 times a day. Change every 90 days. Dx E11.9 1 Each 3 09/14/2020 Active OneTouch Verio In Vitro Strip (Glucose Blood) TESTING once daily 100 Strip 3 10/29/2020 Active OneTouch Delica Plus [id number] TESTING once daily 100 Each 3 10/29/2020 [...] goal of less than 8.0% ([facility]) 35 Units at breakfast, 39 Units before [...] as of this encounter (statuses as of 10/15/2022) Active Problems Problem Noted Date Hypertensive heart [...] current situation. 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 if a rn long term care plan is made -continue [...] as of this encounter (statuses as of 10/15/2022) Resolved Problems Problem Noted Date Resolved Date [...] pain 01/24/2012 01/17/2017 Genetic Sleep Disorder Research Other*[id number] 05/13/2011 04/07/2016 Obstructive sleep apnea 01/18/2011 12/27/19 [...] as of this encounter (statuses as of 10/15/2022) Immunizations Name Administration Dates Next Due COVID-19 [...] encounter Miscellaneous Notes * Telephone Encounter - Dustin Radford MD - 10/15/2022 10:51 PM EST 67 yo female with left side abdominal pain who was seen at the [facility] ER 2 days ago and told she had a kidney stone and was prescribed oxycodone 5 mg which she took over anhour ago and still in a lot of pain.I have no access to the [facility] records. She requests help with paint. I recommended a dose of acetaminophen 500 mg in addition to the oxycodone and see if that helps. If no improvement she is to be reevaluated at the ER. documented in this encounter Plan of Treatment Upcoming Encounters Date Type Specialty Care Team Description 10/17/2022 Scheduled Telephone [facility] Kamini Newsome [address] [facility] [place] [address] 10/26/2022 Pharmacy Pharmacy Pharmacist1, [facility] [address] [place] [address] 11/04/2022 Hem/Onc Treatment Hematology Oncology [place], Chair 1 Hem Onc [address] [place] [address] 12/06/2022 Office Visit Gastroenterology Lyssa Stout, ZAK 132 [facility] [place] [address] 12/08/2022 Office Visit Hematology Oncology Tono Sanchez MD 200 [place] [address] 02/10/2023 Office Visit Sleep Disorders Love Francisco, DO [facility] [place] [address] 03/01/2023 PulmDiagnostic Pulmonary Function West, P[address] [place] [address] Scheduled Procedures Name Priority Associated Diagnoses Date/Ti [...] encounter Medical Devices Implanted Type Area Acid Pump Operator Device Identifier Shelf Expiration Date Model / Serial / Lot Microtech Sure Clip Implanted:Qty: 2 on 06/03/2020 by Janis Hatch DO at OR 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 No Code Status History Code Status Date Activated Date Inactivated Comments Full Code 12/27/2021 2:50 PM 12/27/2021 8:02 PM This order reflects the patients wishes and were consensually agreed upon. Question Answer Comments Discussion of Advance Directives occurred with: Not Discussed Does the patient have a Living Will? No Does the patient have Health Care Power of Scrap Breaker? No Full Code 03/31/2021 8:57 PM 04/03/2021 [...] Syed Bustos Spouse Emergency Contact Care Teams Music Instructor Relationship Specialty Start Date End Date Vanita Dunn MD [address] [place] [facility] [place] [address] PCP - General Family Medicine 03/16/21 documented as of this encounter
--- OUTSIDE RECORDS SUMMARY | 2023-05-10 17:24 | External Medical Summary | Summary of Care ---
Author Name Unknown Organization [facility] [place] [address] Care Team Providers Care Linen Aide Name Role Phone Vanita Dunn MD Primary Care Provid er Reason for Visit * Reason Onset Date Comments [facility]: Maintenance 10/16/2022 Encounter Details Date Type Department Care Team Description 10/16/2022 Scheduled Telephone [facility], [facility] [address] [facility] [place] [address] [facility], Nurse [facility] [address] [facility] [place] [address] Allergies Active Allergy Reactions Severity Noted Date Comments Adhesive Tape Itching 04/29/2020 Penicillins Rash 02/12/2008 Penicillin G 07/20/2018 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 documented as of this encounter (statuses as of 10/16/2022) Medications Medication Sig Dispensed Refills Start Date End Date Status nystatin (NYSTOP) 957214 UNIT/GM powder Apply topically to affected area 3 times a day. 60 g 1 10/16/2019 Active Dexcom G6 Analytical Data Miner Device Use as directed. To test blood sugars 4 times a day Dx E11.9 1 Each 0 09/14/2020 Active Dexcom G6 Transmitter Use as directed. To test blood sugars 4 times a day. Change every 90 days. Dx E11.9 1 Each 3 09/14/2020 Active OneTouch Verio In Vitro Strip (Glucose Blood) TESTING once daily 100 Strip 3 10/29/2020 Active OneTouch Delica Plus [id number] TESTING once daily 100 Each 3 10/29/2020 [...] as of this encounter (statuses as of 10/16/2022) Active Problems Problem Noted Date Hypertensive heart [...] gauger supervisor plan is made -continue lexapro Impaired [...] as of this encounter (statuses as of 10/16/2022) Resolved Problems Problem Noted Date Resolved Date [...] pain 01/24/2012 01/17/2017 Genetic Sleep Disorder Research Other*[id number] 05/13/2011 04/07/2016 Obstructive sleep apnea 01/18/2011 12/27/19 [...] as of this encounter (statuses as of 10/16/2022) Immunizations Name Administration Dates Next Due COVID-19 [...] Telephone Encounter - July Poe RN - 10/16/2022 10:35 AM EST Telephone call to pt to f/u on abdominal pain Pt reports she is feeling better this morning. She did take pain medicine and reports she slept pretty good last night. She reports she did move her bowels last night and the pain was better after bowel movement. She reports she does have a cough this morning, non-productive. She took tessalon perles last night but none so far this am. She does have some for today and will take them. States she feels fine otherwise now. Advised that she needs to be taking her Lactulose to have at least 3 bowel movements a day - advised not to skin doses unless going too much. Encouraged to call back if any red flags or concerns arise. She verbalizes understanding. documented in this encounter Plan of Treatment Upcoming Encounters Date Type Specialty Care Team Description 10/17/2022 Scheduled Telephone [facility] Kamini Newsome [address] [facility] [place] [address] 10/20/2022 Home Visit [facility] July Poe RN 132 [facility] [place] [address] 10/26/2022 Home Visit [facility] Aleyda Campos PA-C [address] [facility] [place] [address] 10/26/2022 Pharmacy Pharmacy Pharmacist1, [facility] [address] [place] [address] 11/04/2022 Hem/Onc Treatment Hematology Oncology [place], Chair 1 Hem Onc [facility] [address] 12/06/2022 Office Visit Gastroenterology Lyssa Stout CRNP [address] [facility] [place] [address] 12/08/2022 Office Visit Hematology Oncology Tono Sanchez MD [address] [facility] [place] [address] 02/10/2023 Office Visit Sleep Disorders Love Francisco DO [address] [place] [address] 03/01/2023 PulmDiagnostic Pulmonary Function [facility], Pft [address] [place] [address] Scheduled Procedures Name Priority Associated Diagnoses Date/Ti [...] this encounter Medical Devices Implanted Type Area Communications Supervisor Device Identifier Shelf Expiration Date Model / Serial / Lot Microtech Sure Clip Implanted:Qty: 2 on 06/03/2020 by Janis Hatch DO at OR [facility] Clip N/A: Colon 04/21/2022 [id number]-F-[id number] 35-C-R / / [id number] documented as of this encounter Additional Health Concerns Infection Onset Date Last Indicated Resolved Time MRSA 09/17/2022 09/17/2022 documented as of this encounter Advance Directives Documents on File Type Date Recorded Patient Ingot Stripper Expl anation Advance Directives and Living Will 04/29/2021 ADVANCE DIRECTIVE / LIVING WILL LIVING WILL AND HEALTH CARE POA Power of Sheetmetal Patternmaker 04/29/2021 POWER OF A [facility] [...] the patient have Health Care Power of Sheetmetal Patternmaker? No Code Status History Code Status Date Activated Date Inactivated Comments Full Code 12/27/2021 2:50 PM 12/27/2021 8:02 PM This order reflects the patients wishes and were consensually agreed upon. Question Answer Comments Discussion of Advance Directives occurred with: Not Discussed Does the patient have a Living Will? No Does the patient have Health Care Power of Sheetmetal Patternmaker? No Full Code 03/31/2021 8:57 PM 04/03/2021 [...] Syed Bustos Spouse Emergency Contact Care Teams Linen Aide Relationship Specialty Start Date End Date Vanita Dunn MD [address] [place] [id number] PCP - General Family Medicine 03/16/21 documented as of this encounter
--- OUTSIDE RECORDS SUMMARY | 2023-05-10 17:25 | External Medical Summary ---
Author Name Unknown Address Unknown Organization [facility]09[facility] [place] [address] Laboratory Report Ordering Provider Test Date Status JACOB CORBETT 10/14/2022 11:21:06 Final Observation Date Value Abnormality Reference (Units ) Status WBC, Total 10/14/2022 11:21:06 3.85 Below low normal 4. 00-10.80 (K/uL) Final RBC 10/14/2022 11:21:06 3.07 3.85-5.15 (M/uL) Final Hemoglobin 10/14/2022 11:21:06 11.2 Below low normal 12 .0-15.3 (g/dL) Final HCT 10/14/2022 11:21:06 35.7 Below low normal 36. 0-45.2 (%) Final MCV 10/14/2022 11:21:06 116.3 81.5-97.5 (fL) Final MCH 10/14/2022 11:21:06 36.5 27.0-34.0 (pg) Final MCHC 10/14/2022 11:21:06 31.4 32.0-36.0 (g/dL) Final RDW 10/14/2022 11:21:06 15.8 11.5-15.5 (%) Final Platelets 10/14/2022 11:21:06 75 Below low normal 140 -400 (K/uL) Final MPV 10/14/2022 11:21:06 12.6 6.6-11.1 ( fL) Final Performing Location [facility] [place] [address]
--- OUTSIDE RECORDS SUMMARY | 2023-05-10 17:25 | External Medical Summary | Summary of Care ---
Author Name Unknown Organization [place] [address] Care Team Providers Care Technical Agronomist Name Role Phone Vanita Dunn MD Primary Care Provid er Reason for Visit * Reason Comments Other Short of breath Encounter Details Date Type Department Care Team Description 10/13/2022 Convenient Care Visit [facility] [address] [facility] [place] [address] Tom Poe PA-C [address] [facility] [address] Chest discomfort* Allergies Active Allergy Reactions Severity Noted Date Comments Adhesive Tape Itching 04/29/2020 Penicillins Rash 02/12/2008 Penicillin G 07/20/2018 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 documented as of this encounter (statuses as of 10/13/2022) Medications Medication Sig Dispensed Refills Start Date End Date Status nystatin (NYSTOP) 718846 UNIT/GM powder Apply topically to affected area 3 times a day. 60 g 1 10/16/2019 Active Dexcom G6 Shellfish Sorter Device Use as directed. To test blood sugars 4 times a day Dx E11.9 1 Each 0 09/14/2020 Active Dexcom G6 Transmitter Use as directed. To test blood sugars 4 times a day. Change every 90 days. Dx E11.9 1 Each 3 09/14/2020 Active OneTouch Verio In Vitro Strip (Glucose Blood) TESTING once daily 100 Strip 3 10/29/2020 Active OneTouch Delica Plus [id number] TESTING once daily 100 Each 3 10/29/2020 [...] 2.5 mg NEBULIZER PRN 04/23/2022 04/23/2023 Active aspirin chew tab 243 mgIndications:Chest discomfort 243 mg OR ONCE 10/13/2022 10/13/2022 Ended documented as of this encounter (statuses as of 10/13/2022) Active Problems Problem Noted Date Hypertensive heart [...] situation. 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 if a intermediate frame tender plan is made -continue lexapro Impaired mobility [...] as of this encounter (statuses as of 10/13/2022) Resolved Problems Problem Noted Date Resolved Date [...] pain 01/24/2012 01/17/2017 Genetic Sleep Disorder Research Other*[id number] 05/13/2011 04/07/2016 Obstructive sleep apnea 01/18/2011 12/27/19 [...] as of this encounter (statuses as of 10/13/2022) Immunizations Name Administration Dates Next Due COVID-19 [...] Sign Reading Time Taken Comments Blood Pressure 120/60 10/13/2022 3:54 PM EST Pulse 73 10/13/2022 3:54 PM EST Temperature 36 C (96.8 F) 10/13/2022 3:54 PM EST Respiratory Rate 20 10/13/2022 3:54 PM EST Oxygen Saturation 96% 10/13/2022 3:54 PM EST Inhaled Oxygen Concentration - - [...] as of this encounter Progress Notes * Tom Poe PA-C - 10/13/2022 5:01 PM EST Nursing Notes: Sharon Lindquist LPN 10/13/22 1555 Signed Shaina Bustos is a 67 year old female who presents to walk-in clinic today complaining of Chief Complaint Patient presents with Other Short of breath Main Symptoms:short of breath Cause: unknown How long: today, was to see family Today Tried: nothing Pt accompanied by: Subjective Shaina Bustos is a 67 year old female with a PMH of DM2, THAD, RLS, hypothyroidism, cirrhosis, NG, HTN, CHF, GERD, Obesity, CP and wheelchair bound, DDD, impaired ADLs that presents for Other (Short of breath) Chest Pain This is a new problem. The current episode started today. The onset quality is sudden (since late this morning). The problem occurs constantly. The problem has been waxing and waning. The pain is present in the substernal region. The pain is moderate. The quality of the pain is described as sharp and burning. The pain does not radiate. Associated symptoms include back pain (but notes this is basel ine), diaphoresis, dizziness, headaches, malaise/fatigue, nausea, shortness of breath and weakness.Pertinent negatives include no abdominal pain, cough, fever, irregular heartbeat, near-syncope, palpitations, sputum production, syncope or vomiting. The pain is aggravated by nothing. She has tried nothing for the symptoms. Risk factors include being elderly, lack of exercise, obesity, post-menopausal and sedentary lifestyle. She was seen here on 09/17 and treated for cellulitis of the foot with doxy and mupirocin. She was seen on 09/21 at ER for no improvement of symptoms. Was discharged with new home services for ADLs Was seen by PCP this morning and was found to have low SpO2% in 80s. The patient notes that "after watching it for a bit, SpO2% increased to 90s." She has been feeling nausea, weak, and not hungry, so she ate one hotdog. No improvement of changes, in fact she felt increased chest pain and SOB. She is unsure of what meds she takes, as they are in blister packs Per chart review, she does take a baby Asprin daily and a PPI Objective BP 120/60 | Pulse 73 | Temp 36 C (96.8 F) (Tympanic) | Resp 20 | SpO2 96% There is no height or weight on file to calculate BMI. BP Readings from Last 3 Encounters: 10/13/22 120/60 10/13/22 108/62 10/04/22 104/64 Wt Readings from Last 3 Encounters: 10/13/22 113.4 kg (250 lb) 08/12/22 113.4 kg (250 lb) 05/31/22 113.4 kg (250 lb) Physical Exam Vitals and nursing note reviewed. Exam conducted with a commissary assistant present. Constitutional: General: She is not in acute distress. Appearance: She is obese. She is ill-appearing. She is not toxic-appearing or diaphoretic. HENT: Head: Normocephalic and atraumatic. Right Ear: External ear normal. Left Ear: External ear normal. Nose: Congestion present. No rhinorrhea. Mouth/Throat: Mouth: Mucous membranes are moist. Eyes: Conjunctiva/sclera: Conjunctivae normal. Cardiovascular: Rate and Rhythm: Normal rate and regular rhythm. Heart sounds: No murmur heard. No friction rub. No gallop. Pulmonary: Effort: No respiratory distress. Breath sounds: Rales present. No rhonchi. Comments: Reduced lung sounds Chest: Chest wall: No tenderness. Musculoskeletal: Right lower leg: Edema present. Left lower leg: Edema present. Skin: General: Skin is warm and dry. Capillary Refill: Capillary refill takes 2 to 3 seconds. Neurological: Mental Status: She is oriented to person, place, and time. Gait: Gait abnormal (wheelchair bound). Psychiatric: Behavior: Behavior normal. Thought Content: Thought content normal. Judgment: Judgment normal. Assessment and plan 1. Chest discomfort EKG done today reveals Sinus rhythm at rate of 72 bpm with 1st degree AV block, possible LVH. "possible lateral infarct, age undetermined; inferior infarct, age undetermined" No ST changes. When compared to last EKG in 05/22 AV block was also sen. When compared to EKG in 04/2021, inferior infarct age indet was seen then. - EKG; Future - EKG - aspirin chew tab 243 mg Patient given 3 baby ASA b/c she believes she would have taken her daily 1 baby ASA already. No NTG given due to Lh/Dizziness and diastolic 60mmHg EMS called for trasnport 2L O2 given via NC Was the System Triage Office contacted? No, Emergently sent to ED Disposition: ED Follow up ER via EMS The above was discussed and understanding was expressed. Tom Poe PA-C * Clarice Salgado LPN - 10/13/2022 4:56 PM EST Did EKG per provider Tom Poe. documented in this encounter Nursing Notes * Sharon Lindquist LPN - 10/13/2022 3:53 PM EST Shaina Bustos is a 67 year old female who presents to walk-in clinic today complaining of Chief Complaint Patient presents with Other Short of breath Main Symptoms:short of breath Cause: unknown How long: today, was to see family DRHakeem Today Tried: nothing Pt accompanied by: documented in this encounter Plan of Treatment Upcoming Encounters Date Type Specialty Care Team Description 10/14/2022 Scheduled Telephone [facility] Kamini Newsome [address] [facility] [place] [address] 10/14/2022 Hem/Onc Treatment Hematology Oncology [place], Chair 3 Hem [address]c [address] [address] 10/17/2022 Scheduled Telephone [facility] Kamini Newsome [address] [facility] [place] [address] 10/26/2022 Pharmacy [facility]acy Pharmacist1, [facility] [address] 12/06/2022 Office Visit Gastroenterology Lyssa Stout CRNP [address] [facility] [place] [address] 12/08/2022 Office Visit Hematology Oncology [facility] [address] 02/10/2023 Office Visit Sleep Disorders Love Francisco DO [address] [place] [address] 03/01/2023 PulmDiagnostic Pulmonary Function [place], Pft [address] [place] [address] Scheduled Orders Name Type Priority Associated Diagnoses Orde r Schedule EKG EKG STAT Chest discomfort Expected: 10/13/2022, Expires: 3 Scheduled Procedures Name Priority Associated Diagnoses Date/Ti [...] encounter Medical Devices Implanted Type Area Clinical Account Executive Device Identifier Shelf Expiration Date Model / Serial / Lot Microtech Sure Clip Implanted:Qty: 2 on 06/03/2020 by Janis Hatch DO at OR [facility] Clip N/A: Colon 04/21/2022 [facility]-F-26-2 35-C-R / / [id number] documented as of this encounter Visit Diagnoses Diagnosis Chest discomfort- Primary Other chest pain documented in this encounter Administered Medications Inactive Administered Medications - up to 3 most recent administrations Medication Order MAR Action Action Date Dose Rate Site aspirin chew tab 243 mg 243 mg, Oral, ONCE, On [place] 10/13/22 at 1730, For 1 dose Given 10/13/2022 4:55 PM EST 243 mg documented in this encounter Additional Health Concerns Infection Onset Date Last Indicated Resolved Time MRSA 09/17/2022 09/17/2022 documented as of this encounter Advance Directives Documents on File Type Date Recorded Patient Milk Deliverer Expl anation Advance Directives and Living Will 04/29/2021 ADVANCE DIRECTIVE / LIVING WILL LIVING WILL AND HEALTH CARE POA Power of Animal Impersonator 04/29/2021 POWER OF A [facility] [...] the patient have Health Care Power of Animal Impersonator? No Code Status History Code Status Date Activated Date Inactivated Comments Full Code 12/27/2021 2:50 PM 12/27/2021 8:02 PM This order reflects the patients wishes and were consensually agreed upon. Question Answer Comments Discussion of Advance Directives occurred with: Not Discussed Does the patient have a Living Will? No Does the patient have Health Care Power of Animal Impersonator? No Full Code 03/31/2021 8:57 PM 04/03/2021 [...] Syed Bustos Spouse Emergency Contact Care Teams Technical Agronomist Relationship Specialty Start Date End Date Vanita Dunn MD [address] [place] [address] PCP - General Family Medicine 03/16/21 documented as of this encounter
--- OUTSIDE RECORDS SUMMARY | 2023-05-10 17:25 | External Medical Summary ---
Author Name Unknown Address Unknown Organization K09:[facility] [place] [address] Laboratory Report Ordering Provider Test Date Status JACOB CORBETT 10/14/2022 11:21:06 Final Observation Date Value Abnormality Reference (Units ) Status SYNC LEUKOCYTES IN BLOOD BY AUTOMATED COUNT 10/14/2022 11:21:06 3.85 Below low normal 4.00-10.80 (K/uL) Final Segs 10/14/2022 11:21:06 62.4 40.0-75.0 (%) Final Lymphs % 10/14/2022 11:21:06 17.1 Below low normal 18.0-42.0 (%) Final Monos 10/14/2022 11:21:06 9.6 1.0-11.0 (%) Final Eosinophils 10/14/2022 11:21:06 10.1 Above high normal 0.0-6.0 (%) Final Basos 10/14/2022 11:21:06 0.8 0.0-2.0 (%) Final Absolute Segs 10/14/2022 11:21:06 2.40 1.80-7.70 (K/uL) Final Lymphs, absolute 10/14/2022 11:21:06 0.66 Below low normal 1.00-4.80 (K/ul) Final Monos, Abs 10/14/2022 11:21:06 0.37 0.00-1.10 (K/uL) Final Eos, Abs 10/14/2022 11:21:06 0.39 0.00-0.70 (K/uL) Final Basos, Abs 10/14/2022 11:21:06 0.03 0.00-0.20 (K/uL) Final Performing Location [facility] [place] [address]
--- OUTSIDE RECORDS SUMMARY | 2023-05-10 17:25 | External Medical Summary ---
Author Name Unknown Address Unknown Organization K01:[facility] [address] [place] [address] Laboratory Report Ordering Provider Test Date Status JACOB CORBETT 10/14/2022 11:21:06 Final Observation Date Value Abnormality Reference (Units ) Status Ferritin 10/14/2022 11:21:06 108 13-150 (ng /mL) Final Performing Location [facility] - [address] [place] [address]
--- OUTSIDE RECORDS SUMMARY | 2023-05-10 17:25 | External Medical Summary | Summary of Care ---
Author Name Unknown Organization [place] [address] Care Team Providers Care Pigment And Lacquer Mixer Name Role Phone Vanita Dunn MD Primary Care Provid er Reason for Visit * Reason Comments IV Therapy Venofer Encounter Details Date Type Department Care Team Description 10/14/2022 Hem/Onc Treatment Hematology/Oncology Treatment, [place] [address] [place] [address] Maryellen, Chair 3 Hem Onc Sc[address] [facility] [place] [address] Iron deficiency anemia due to chronic blood loss* Allergies Active Allergy Reactions Severity Noted Date Comments Adhesive Tape Itching 04/29/2020 Penicillins Rash 02/12/2008 Penicillin G 07/20/2018 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 documented as of this encounter (statuses as of 10/14/2022) Medications Medication Sig Dispensed Refills Start Date End Date Status nystatin (NYSTOP) 775953 UNIT/GM powder Apply topically to affected area 3 times a day. 60 g 1 10/16/2019 Active Dexcom G6 Magazine Repairer Device Use as directed. To test blood sugars 4 times a day Dx E11.9 1 Each 0 09/14/2020 Active Dexcom G6 Transmitter Use as directed. To test blood sugars 4 times a day. Change every 90 days. Dx E11.9 1 Each 3 09/14/2020 Active OneTouch Verio In Vitro Strip (Glucose Blood) TESTING once daily 100 Strip 3 10/29/2020 Active OneTouch Delica Plus [id number] TESTING once daily 100 Each 3 10/29/2020 Active Nitroglycerin 0.4 MG Sublingual Tablet Sublingual (Nitrostat) Place 1 Tab under the tongue every 5 minutes as needed for Pain, Chest. up to 3 doses in 15 minutes 25 Tab 11 03/03/2021 Active BiPAP every night at bedtime. 0 Active MEDICAL INSTRUCTIONSIndicatio ns:Iron deficiency anemia due to chronic blood loss Please de-access patient's port. Please flush with 10 mL of NS, followed by 500 units (5 mL) of heparin. 1 Each 0 03/12/2021 Active Docusate Sodium 100 MG Oral Capsule (Colace) TAKE 1 CAPSULE BY MOUTH ONCE DAILY 68 Cap 0 05/29/2021 Active Fluticasone Propionate 50 MCG/ACT Nasal Suspension (Flonase)Indications: Sinus congestion USE 2 SPRAYS IN EACH NOSTRIL ONCE DAILY DIRECTED 16 g 5 06/11/2021 Active Budesonide-Formoterol Fumarate 160-4.5 MCG/ACT Inhalation Aerosol Inhale 2 Puffs by mouth in the morning and 2 Puffs before bedtime. 10.2 g 1 09/27/2021 Active Dexcom G6 Sensor use as directed to test blood sugar 4 times daily. change sensor every 10 days 3 Each 3 09/27/2021 Active Disposable Brief X-LargeIndications:Hy pertensive heart disease with chronic diastolic congestive heart failure (HCC),Hepatic cirrhosis, unspecified hepatic cirrhosis type, unspecified whether ascites present (HCC),Other cerebral palsy (HCC),Urinary incontinence, unspecified type,Frequent fecal incontinence Use as directed 60 Each 5 10/06/2021 Active Potassium Chloride ER 10 MEQ Oral Tablet Extended ReleaseIndications:Hy pokalemia Take by mouth 1 Tablet in the morning. With food.. 90 Tablet 3 12/21/2021 Active Lidocaine-Prilocaine 2.5-2.5 % External Cream (Emla)Indications:Enc ounter for antineoplastic chemotherapy Apply topically to affected area as needed for Other (when accessing port). APPLY TO SKIN OVER MEDIPORT & COVER 1HR PRIOR TO ACCESSING. 30 g 0 02/10/2022 Active Trulicity 4.5 MG/0.5ML Subcutaneous Solution Pen-injector (Dulaglutide)Indicati ons:Type 2 diabetes mellitus with hemoglobin A1c [...] Sodium 20 MG Oral Tablet Delayed Release (Protonix)Indications :NAFLD (nonalcoholic fatty liver disease),Other cirrhosis of liver (HCC) TAKE 2 TABLETS BY MOUTH TWICE DAILY 360 Tablet 1 05/09/2022 Active traZODone HCl 50 MG Oral Tablet (Desyrel)Indications: Sleep disturbances TAKE 1 TABLET BY MOUTH AT BEDTIME 90 Tablet 3 05/12/2022 Active Benzonatate 200 MG Oral CapsuleIndications:Br onchitis, complicated Take by mouth 1 Capsule as needed in the morning AND 1 Capsule as needed at noon AND 1 Capsule as needed in the evening for Cough. 30 Capsule 1 05/13/2022 Active Levothyroxine Sodium 150 MCG Oral Tablet (Levoxyl)Indications: Acquired hypothyroidism Take by mouth 1 Tablet in the morning. (at least 30 min prior to breakfast or other meds). 30 Tablet 11 05/20/2022 Active BD Pen Needle Mini U/F 31G X 5 MM (Insulin Pen Needle)Indications:Ty pe 2 diabetes mellitus with hemoglobin A1c goal of less than 7.0% (HCC) USE TO INJECT INSULIN FOUR TIMES DAILY. 400 Each 3 05/23/2022 Active Linzess 290 MCG Oral Capsule (linaCLOtide) TAKE 1 CAPSULE BY MOUTH ONCE DAILY BEFORE BREAKFAST 90 Capsule 1 06/13/2022 Active traMADol HCl 50 MG Oral Tablet (Ultram)Indications:A bdominal pain, generalized Take by mouth 2 Tablets every 6 hours as needed for Pain, Severe (abdominal pain). 40 Tablet 0 06/13/2022 Active Silver sulfADIAZINE 1 % External Cream (Silvadene)Indication s:Pressure injury of skin of sacral region, unspecified injury stage Apply topically to affected area daily . Apply to wound 85 g 11 07/06/2022 Active Nadolol 40 MG Oral Tablet (Corgard)Indications: HTN, goal below 140/90 TAKE 1 TABLET BY [...] 07/29/2022 Active Gabapentin 300 MG Oral Capsule (Neurontin)Indication s:DM type 2 with diabetic peripheral neuropathy (HCC),Diabetic [...] Active NovoLOG FlexPen 100 UNIT/ML Subcutaneous Solution Pen-injectorIndicatio ns:Type 2 diabetes mellitus with hemoglobin A1c goal of less than 8.0% ([facility]) 35 Units at breakfast, 39 Units before lunch, 45 Units before supper 120 mL 3 07/28/2022 Active Escitalopram Oxalate 20 MG Oral Tablet (Lexapro)Indications: Recurrent major depressive disorder, in partial remission (HCC) TAKE 1 TABLET BY MOUTH DAILY 90 Tablet 0 08/04/2022 Active Fluticasone-Salmetero l 250-50 MCG/ACT Inhalation Aerosol Powder Breath Activated [...] TIMES DAILY 1200 mL 0 09/16/2022 Active Hospital, Clinic, or Other Facility Administered [...] as of this encounter (statuses as of 10/14/2022) Active Problems Problem Noted Date Hypertensive heart [...] as of this encounter (statuses as of 10/14/2022) Resolved Problems Problem Noted Date Resolved Date [...] pain 01/24/2012 01/17/2017 Genetic Sleep Disorder Research Other*[id number] 05/13/2011 04/07/2016 Obstructive sleep apnea 01/18/2011 12/27/19 [...] as of this encounter (statuses as of 10/14/2022) Immunizations Name Administration Dates Next Due COVID-19 [...] Sign Reading Time Taken Comments Blood Pressure 99/62 10/14/2022 11:10 AM EST Pulse 69 10/14/2022 11:10 AM EST Temperature 36.4 C (97.6 F) 10/14/2022 11:[address] Respiratory Rate 18 10/14/2022 11:10 AM EST Oxygen Saturation 92% 10/14/2022 11:10 AM EST Inhaled Oxygen Concentration - - [...] Nursing Notes * Shelli Barakat RN - 10/14/2022 3:25 PM EST Chair 1. Patient here today for Venofer and will get labs done via her port. Patient feeling well overall today but says she was in the ER last night having pain from her chestto lower abdomen. Per patient and , reported to have a small kidney stone. Safety and Risk for Injury Patient will remain free from injury. Ensure appropriate safety devices are available. Provide and maintain safe environment. Goals: Patient will remain free from injury. Possible barriers to meeting goals: ambulating with IV pole, use of mobile scooter Stability of the patient: Moderately stable - [...] [facility] Kamini Newsome [address] [facility] [place] [address] 10/26/2022 Pharmacy Pharmacy Pharmacist1, [facility] [address] [facility], [place] [address] 11/04/2022 Hem/Onc Treatment Hematology Oncology [place], Chair 1 Hem Onc [facility] [address] [facility], [place] [address] 12/06/2022 Office Visit Gastroenterology Lyssa Stout CRNP [address] [facility] [place] [address] 12/08/2022 Office Visit Hematology Oncology Tono Sanchez MD 200 [facility], [place] [address] 02/10/2023 Office Visit Sleep Disorders [place], [address] [place] [address] 03/01/2023 PulmDiagnostic Pulmonary Function [place], [address] [place] [address] Pending Results Name Type Priority Associated Diagnoses Date /Time FERRITIN Lab STAT Iron deficiency anemia due to chronic blood loss 10/14/2022 11:21 AM EST Scheduled Orders Name Type Priority Associated Diagnoses Orde r Schedule CBC WITH WBC DIFFERENTIAL Lab STAT Iron deficiency anemia due to chronic blood loss Every 2 Weeks for 25 Occurrences starting 10/14/2022 until 10/14/2023, 1 completed FERRITIN Lab STAT Iron deficiency anemia due to chronic blood loss Every 6 Weeks for 20 Occurrences starting 10/14/2022 until 10/14/2023 Scheduled Procedures Name Priority Associated Diagnoses Date/Ti [...] this encounter Medical Devices Implanted Type Area Wet Wash Assembler Device Identifier Shelf Expiration Date Model / Serial / Lot Microtech Sure Clip Implanted:Qty: 2 on 06/03/2020 by Janis Hatch DO at OR [facility] Clip N/A: Colon 04/21/2022 [facility]-F-26-2 35-C-R / / [id number] documented as of this encounter Procedures Procedure Name Priority Date/Time Associated Diagnosis Comments DIFFERENTIAL, AUTOMATED STAT 10/14/2022 11:21 AM EST Iron deficiency anemia due to chronic blood loss CBC WITH WBC DIFFERENTIAL STAT 10/14/2022 11:21 AM EST Iron deficiency anemia due to chronic blood loss CBC STAT 10/14/2022 11:21 AM EST Iron deficiency anemia due to chronic blood loss DIFFERENTIAL, TECHNOLOGIST REVIEW Routine 10/14/2022 11:21 AM EST Iron deficiency anemia due to chronic blood loss documented in this encounter Results * (ABNORMAL) DIFFERENTIAL, TECHNOLOGIST REVIEW (10/14/2022 11:21 AM EST) nRBCs 10/14/2022 11:49 AM EST [facility]02 Anisocytosis Slight(A) None Seen 10/14/2022 11:49 AM EST [facility]-02 Elliptocytes Few(A) None Seen 10/14/2022 11:49 AM EST [facility] 56-02 Macrocytosis Present(A) None Seen 10/14/2022 11:49 AM EST [facility]-02 Polychromasia Slight(A) None Seen 10/14/2022 11:49 AM EST [facility]-02 Blood Venous blood specimen / Unknown Central Line / Unknown 10/14/2022 11:21 AM EST 10/14/2022 11:28 AM EST Tono Sanchez MD LAB BLOOD ORDERABLES [facility] 56-02 [address] [place] [id number] * (ABNORMAL) DIFFERENTIAL, AUTOMATED (10/14/2022 11:21 AM EST) WBC 3.85(L) 4.00 - 10.80 K/uL 10/14/2022 11:49 AM EST [facility] 56-02 Neutrophils % 62.4 40.0 - 75.0 % 10/14/2022 11:49 AM [facility] 56-02 Lymphocytes % 17.1(L) 18.0 - 42.0 % 10/14/2022 11:49 AM [facility] 56-02 Monocytes % 9.6 1.0 - 11.0 % 10/14/2022 11:49 AM [facility] 56-02 Eosinophils % 10.1(H) 0.0 - 6.0 % 10/14/2022 11:49 AM EST [facility] 56-02 Basophils % 0.8 0.0 - 2.0 % 10/14/2022 11:49 AM [facility] 56-02 Absolute Neutrophils 2.40 1.80 - 7.70 K/uL 10/14/2022 11:49 AM [facility] 56-02 Absolute Lymphocytes 0.66(L) 1.00 - 4.80 K/ul 10/14/2022 11:49 AM [facility] 56-02 Absolute Monocytes 0.37 0.00 - 1.10 K/uL 10/14/2022 11:49 AM [facility] 56-02 Absolute Eosinophils 0.39 0.00 - 0.70 K/uL 10/14/2022 11:49 AM [facility] 56-02 Absolute Basophils 0.03 0.00 - 0.20 K/uL 10/14/2022 11:49 AM [facility] 56-02 Blood Venous blood specimen / Unknown Central Line / Unknown 10/14/2022 11:21 AM EST 10/14/2022 11:28 AM EST Tono Sanchez MD LAB BLOOD ORDERABLES [facility] 56 [address] [place] [address] * (ABNORMAL) CBC (10/14/2022 11:21 AM EST) WBC 3.85(L) 4.00 - 10.80 K/uL 10/14/2022 11:49 AM EST [facility] 56- RBC 3.07 3.85 - 5.15 M/uL 10/14/2022 11:49 AM EST [facility] 56- HGB 11.2(L) 12.0 - 15.3 g/dL 10/14/2022 11:49 AM [facility] 56- HCT 35.7(L) 36.0 - 45.2 % 10/14/2022 11:49 AM [facility] 56- MCV 116.3 81.5 - 97.5 fL 10/14/2022 11:49 AM [facility] 56- MCH 36.5 27.0 - 34.0 pg 10/14/2022 11:49 AM [facility] 56- MCHC 31.4 32.0 - 36.0 g/dL 10/14/2022 11:49 AM [facility] 56- RDW 15.8 11.5 - 15.5 % 10/14/2022 11:49 AM [facility] 56- PLT 75(L) 140 - 400 K/uL 10/14/2022 11:49 AM [facility] 56- MPV 12.6 6.6 - 11.1 fL 10/14/2022 11:49 AM [facility] 56-02 Blood Venous blood specimen / Unknown Central Line / Unknown 10/14/2022 11:21 AM EST 10/14/2022 11:28 AM EST Tono Sanchez MD LAB BLOOD ORDERABLES [facility] 56 [address] [place] [address] documented in this encounter Visit Diagnoses Diagnosis [...] ONCE PRN Other, Hypersensitivity Reaction, Starting on Mon10/14/22 at 1122, Until 10/15/22 at 1121, For 24 hours EPINEPHrine 1 MG/ML inj 0.3 mg 0.3 mg, Intramuscular, ONCE PRN Other, Hypersensitivity Reaction or Anaphylaxis, Starting on Mon10/14/22 at 1122, Until 10/15/22 at 1121, For 24 hours hEParin 100 UNIT/ML Lock Flush inj 500 Units 500 Units (5 mL), IV Lock, PRN Other, IV Flush, Starting on Mon10/14/22 at 1122, Until 10/15/22 at 1121, For 24 hours, Do not flush if lock, PICC, or central line not in place; IV infusing or unable to flush. Given 10/14/2022 1:02 PM EST 500 Units Hydrocortisone Sod Suc (PF) (Solu-Cortef) inj 100 mg 100 mg, IV Push, ONCE PRN Other, Hypersensitivity Reaction, Starting on Mon10/14/22 at 1122, Until 10/15/22 at 1121, For 24 hours NSS infusion 500 mL, Intravenous, at 50 mL/hr, CONTINUOUS, Starting on Mon10/14/22 at 1230, Until Mon10/14/22 at 2229 Start Infusion 10/14/2022 11:26 AM EST 500 mL 50 mL/hr sodium chloride 0.9 % flush central line 10 mL 10 mL, IV Push, PRN Other, IV Flush, Starting on Mon10/14/22 at 1122, Until 10/15/22 at 1121, For 24 hours, Do not flush if lock, PICC, or central line not in place; IV infusing or unable to flush. Given 10/14/2022 1:02 PM EST 10 mL Inactive Administered Medications - up to 3 most recent administrations Medication Order MAR Action Action Date Dose Rate Site Iron Sucrose (Venofer) 300 mg in NSS 250 mL ivpb 300 mg, IV Piggyback, ONCE, 1 dose, On Mon10/14/22 at 1300, Administer over 90 Minutes Start Infusion 10/14/2022 11:26 AM EST 300 mg 166.67 mL/hr documented in this encounter Additional Health Concerns Infection Onset Date Last Indicated Resolved Time MRSA 09/17/2022 09/17/2022 documented as of this encounter Advance Directives Documents on File Type Date Recorded Patient Energy Control Officer Expl anation Advance Directives and Living Will 04/29/2021 ADVANCE DIRECTIVE / LIVING WILL LIVING WILL AND HEALTH CARE POA Power of Connection Worker 04/29/2021 POWER OF A TTORNEY HEALTH [...] the patient have Health Care Power of Connection Worker? No Code Status History Code Status Date Activated Date Inactivated Comments Full Code 12/27/2021 2:50 PM 12/27/2021 8:02 PM This order reflects the patients wishes and were consensually agreed upon. Question Answer Comments Discussion of Advance Directives occurred with: Not Discussed Does the patient have a Living Will? No Does the patient have Health Care Power of Connection Worker? No Full Code 03/31/2021 8:57 PM [...] Name Relationship Healthcare Agent [facility] Communication Syed Bustos Spouse Emergency Contact Care Teams Pigment And Lacquer Mixer Relationship Specialty Start Date End Date Vanita Dunn MD [address] [place] [address] PCP - General Family Medicine 03/16/21 documented as of this encounter
--- OUTSIDE RECORDS SUMMARY | 2023-05-10 17:25 | External Medical Summary ---
Author Name Unknown Address Unknown Organization K09:[facility] [place] [address] [address] Laboratory Report Ordering Provider Test Date Status JACOB CORBETT 10/14/2022 11:21:06 Final Observation Date Value Abnormality Reference (Units ) Status Nucleated erythrocytes/100 leukocytes [Ratio] in Blood by Automated count 10/14/2022 11:21:06 Final Anisocytosis [Presence] in Blood by Light microscopy 10/14/2022 11:21:06 Slight Abnormal None Seen Final Elliptocytes [Presence] in Blood by Light microscopy 10/14/2022 11:21:06 Few Abnormal None Seen Final Macrocytes [Presence] in Blood by Light microscopy 10/14/2022 11:21:06 Present Abnormal None Seen Final Polychromasia [Presence] in Blood by Light microscopy 10/14/2022 11:21:06 Slight Abnormal None Seen Final Performing Location [facility] [place] [address] [address]
--- OUTSIDE RECORDS SUMMARY | 2023-05-10 17:25 | External Medical Summary | Summary of Care ---
Author Name Unknown Organization [facility] Address [place] [address] Care Team Providers Care Watch Crystal Edge Grinder Name Role Phone Vanita Dunn MD Primary Care Provid er Reason for Visit * Reason Onset Date Comments [facility]: Maintenance 10/04/2022 Encounter Details Date Type Department Care Team Description 10/04/2022 Telephone [facility], [facility] [address] [facility] [place] [address] July Poe, RN [address] [facility] [place] [address] [facility]: Maintenance Allergies Active Allergy Reactions Severity Noted Date Comments Adhesive Tape Itching 04/29/2020 Penicillins Rash 02/12/2008 Penicillin G 07/20/2018 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 documented as of this encounter (statuses as of 10/14/2022) Medications Medication Sig Dispensed Refills Start Date End Date Status nystatin (NYSTOP) 673245 UNIT/GM powder Apply topically to affected area 3 times a day. 60 g 1 10/16/2019 Active Dexcom G6 Global Head Advertiser Solutions Device Use as directed. To test blood sugars 4 times a day Dx E11.9 1 Each 0 09/14/2020 Active Dexcom G6 Transmitter Use as directed. To test blood sugars 4 times a day. Change every 90 days. Dx E11.9 1 Each 3 09/14/2020 Active OneTouch Verio In Vitro Strip (Glucose Blood) TESTING once daily 100 Strip 3 10/29/2020 Active OneTouch Delica Plus [id number] TESTING once daily 100 Each 3 10/29/2020 [...] than 8.0% ([facility]) Inject 50 Units under the skin every night at bedtime. 45 mL 3 07/28/2022 3 Discontinue d(Refill) Hospital, Clinic, or Other Facility Administered Medication [...] terminal carman plan is made -continue lexapro Impaired mobility [...] pain 01/24/2012 01/17/2017 Genetic Sleep Disorder Research Other*[id number] 05/13/2011 04/07/2016 Obstructive sleep apnea 01/18/2011 12/27/19 [...] Miscellaneous Notes * Telephone Encounter - THAD Haas - 10/14/2022 3:54 PM EST Patient still admitted to SNF THAD Haas * Telephone Encounter - July Poe RN - 10/04/2022 2:29 PM EST Pt in need of BALDOMERO visits scheduled. Had #1 with RNCM today and has PCP office appt on 10/13. Please schedule with provider, EMILE and RNCM again. Thank you! documented in this encounter Plan of Treatment Upcoming Encounters Date Type Specialty Care Team Description 10/17/2022 Scheduled Telephone [facility] Kamini Newsome [address] [facility] [place] [address] 10/26/2022 Pharmacy Pharmacy Pharmacist1, [facility] [address] [place] [address] 11/04/2022 Hem/Onc Treatment Hematology Oncology [place], Chair 1 Hem Onc [address] [place] [address] 12/06/2022 Office Visit Gastroenterology Lyssa Stout CRNP [address] [facility] [place] [address] 12/08/2022 Office Visit Hematology Oncology Tono Sanchez MD [address] [place] [address] 02/10/2023 Office Visit Sleep Disorders [place], DO [facility] [place] [address] 03/01/2023 PulmDiagnostic Pulmonary Function [place], [address] [place] [address] Scheduled Procedures Name Priority Associated Diagnoses Date/Ti [...] this encounter Medical Devices Implanted Type Area Armored Car Guard Device Identifier Shelf Expiration Date Model / Serial / Lot Microtech Sure Clip Implanted:Qty: 2 on 06/03/2020 by Janis Hatch DO at OR [facility] Clip N/A: Colon 04/21/2022 [facility]-F-26-2 35-C-R / / [id number] documented as of this encounter Additional Health Concerns Infection Onset Date Last Indicated Resolved Time MRSA 09/17/2022 09/17/2022 documented as of this encounter Advance Directives Documents on File Type Date Recorded Patient Adjunct Professor Expl anation Advance Directives and Living Will 04/29/2021 ADVANCE DIRECTIVE / LIVING WILL LIVING WILL AND HEALTH CARE POA Power of Injury Prevention Coordinator 04/29/2021 POWER OF A TTORNEY HEALTH [...] the patient have Health Care Power of Injury Prevention Coordinator? No Code Status History Code Status Date Activated Date Inactivated Comments Full Code 12/27/2021 2:50 PM 12/27/2021 8:02 PM This order reflects the patients wishes and were consensually agreed upon. Question Answer Comments Discussion of Advance Directives occurred with: Not Discussed Does the patient have a Living Will? No Does the patient have Health Care Power of Injury Prevention Coordinator? No Full Code 03/31/2021 8:57 PM [...] Syed Bustos Spouse Emergency Contact Care Teams Watch Crystal Edge Grinder Relationship Specialty Start Date End Date Vanita Dunn MD [address] [place] [address] PCP - General Family Medicine 03/16/21 documented as of this encounter
--- OUTSIDE RECORDS SUMMARY | 2023-05-10 17:26 | External Medical Summary | Summary of Care ---
Author Name Unknown Organization [place] [address] Care Team Providers Care Carbon Setter Name Role Phone Vanita Dunn MD Primary Care Provid er Reason for Visit * Reason Comments Return Visit Patient here to get lift chair covered under insurance. Encounter Details Date Type Department Care Team Description 10/13/2022 Office Visit [facility] [address] [place] [address] Brianne Pal PA-C [address] [place] [address] Other cerebral palsy (HCC)*; Weakness of both lower extremities; Impaired mobility and ADLs; Wheelchair dependent; Chronic pain syndrome; DDD (degenerative disc disease), lumbar; Chronic pain of both knees; Chronic diastolic (congestive) heart failure ([facility]); Type 2 diabetes mellitus with hemoglobin A1c goal of less than 8.0% ([facility]); Risk and functional assessment; Obesity, morbid (more than 100 lbs over ideal weight or BMI > 40) ([facility]); HTN, goal below 130/80; Acquired hypothyroidism; Dyslipidemia Allergies Active Allergy Reactions Severity Noted Date Comments Adhesive Tape Itching 04/29/2020 Penicillins Rash 02/12/2008 Penicillin G 07/20/2018 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 documented as of this encounter (statuses as of 10/13/2022) Medications Medication Sig Dispensed Refills Start Date End Date Status nystatin (NYSTOP) 109547 UNIT/GM powder Apply topically to affected area 3 times a day. 60 g 1 0 Active Dexcom G6 Shade Classifier Device Use as directed. To test blood sugars 4 times a day Dx E11.9 1 Each 0 1 Active Dexcom G6 Transmitter Use as directed. To test blood sugars 4 times a day. Change every 90 days. Dx E11.9 1 Each 3 1 Active Arteriocyte Medical SystemsTouch Verio In Vitro Strip (Glucose Blood) TESTING once daily 100 Strip 3 1 Active Arteriocyte Medical SystemsTouch Delica Plus [id number] TESTING once daily 100 Each 3 1 Active Nitroglycerin 0.4 MG Sublingual Tablet Sublingual (Nitrostat) Place 1 Tab under the tongue every 5 minutes as needed for Pain, Chest. up to 3 doses in 15 minutes 25 Tab 11 1 Active Additional Information Patient not taking.Reported on 10/04/2022 BiPAP every night at bedtime. 0 Active [...] the morning. 180 Tablet 3 2 Active Pantoprazole Sodium 20 MG Oral Tablet Delayed Release (Protonix)Indicatio ns:NAFLD (nonalcoholic fatty liver disease),Other cirrhosis of liver (HCC) TAKE 2 TABLETS BY MOUTH TWICE DAILY 360 Tablet 1 2 Active traZODone HCl 50 MG Oral Tablet (Desyrel)Indication s:Sleep disturbances TAKE 1 TABLET BY MOUTH AT BEDTIME 90 Tablet 3 2 Active Benzonatate 200 MG Oral CapsuleIndications: Bronchitis, complicated Take by mouth 1 Capsule as needed in the morning AND 1 Capsule as needed at noon AND 1 Capsule as needed in the evening for Cough. 30 Capsule 1 2 Active Additional Information Patient not taking.Reported on 10/04/2022 Levothyroxine Sodium 150 MCG Oral Tablet (Levoxyl)Indication [...] Active Additional Information Patient not taking.Reported on 08/12/2022 Silver sulfADIAZINE 1 % External Cream (Silvadene)Indicati [...] hemoglobin A1c goal of less than 8.0% ([facility]) 35 Units at breakfast, 39 [...] the morning. 45 mL 3 3 Active Lantus SoloStar 100 UNIT/ML Subcutaneous Solution Pen-injectorIndicat ions:Type 2 diabetes mellitus with hemoglobin A1c goal of less than 8.0% (HCC) Inject 50 Units under the skin every night at bedtime. 45 mL 3 2 10/13/19 23 Discontinu ed(Refill) Hospital, Clinic, or Other [...] current situation. 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 -continue lexapro Impaired mobility [...] 45.0-49.9 in adult 11/1101/17/2017 Overview: bmi= 48.04 3/30/16 Need for shingles vaccine 12/09/20152015 Bilateral shoulder [...] pain 01/24/2012 01/17/2017 Genetic Sleep Disorder Research Other*[id number] 05/13/2011 04/07/2016 Obstructive sleep apnea 01/18/2011 12/27/19 [...] Sign Reading Time Taken Comments Blood Pressure 108/62 10/13/2022 1:51 PM EST Pulse 92 10/13/2022 1:51 PM EST Temperature 36.9 C (98.4 F) 10/13/2022 1:51 PM ES T Respiratory Rate 18 10/13/2022 1:51 PM EST Oxygen Saturation 86% 10/13/2022 1:51 PM EST Inhaled Oxygen Concentration - - Weight 113.4 kg (250 lb) 10/13/2022 1:51 PM EST Height 149.9 cm (4' 11") 10/13/2022 1:51 PM EST Body Mass Index 50.49 10/13/2022 1:51 PM EST documented in this encounter Functional Status Functional [...] No 03/31/2021 documented as of this encounter Patient Instructions * Patient Instructions* Miranda OswaldDEBBIE - 10/13/2022 1:49 PM EST Patient Instructions - Fall Prevention (This education is for all patients over 65 regardless of symptoms) Remember to take your current medications as prescribed. In order to prevent falls, you are encouraged to: Exercise Utilize assistive/adaptive devices Avoid multifocal lenses when walking Avoid hazards in home Maintain a regular toileting schedule Any questions please contact our office. Preventing Falls in the Home (This education is for all patients over 65 regardless of symptoms) As you get older, falls are more likely. Thats because your reaction time slows. Your muscles and joints may also get stiffer, making them less flexible. Illness, medications, and vision changes can also affect your balance. A fall could leave you unable to live on your own. To make your home safer, follow these tips: Floors Put nonskid pads under area rugs Remove throw rugs Replace worn floor coverings Tack carpets firmly to each step on carpeted stairs. Put nonskid strips on the edges of uncarpeted stairs Keep floors and stairs free of clutter and cords Arrange furniture so there are clear pathways Clean up any spills right away Bathrooms Install grab bars in the tub or shower Apply nonskid strips or put a nonskid rubber mat in the tub or shower Sit on a bath chair to bathe Use bathmats with nonskid backing Lighting Keep a flashlight in each room Put a nightlight along the pathway between the bedroom and the bathroom [employer] Patient Education Copyright 2008 - 2010 [employer] except where otherwise noted Preventing Falls: Exercises to Improve Balance, Flexibility, Strength, and Staying Power (This education is for all patients over 65 regardless of symptoms) Certain types of exercises may help make you less likely to fall. Try the ones below. Or do other exercises that your healthcare provider suggests. Depending on your health, you may need to start slowly. Dont let that stop you. Even small amounts of exercise can help you. Be sure to talk to yourhealthcare provider before starting any exercise program. Improve Balance Many types of exercise can help improve balance. Leonard chi and yoga are good examples. Heres another one to try. You can do it anytime and almost anywhere. Stand next to a counter or solid support. Push yourself up onto your tiptoes. Hold for 5 seconds. If you start to lose your balance, hold on to the counter. Rest and repeat 5 times. Work up to holding for 20 to 30 seconds, if you can. Increase Flexibility Being more flexible makes it easier for you to move around safely. Try exercises like the seated hamstring stretch. Sit in a chair and put one foot on a stool. Straighten your leg and reach with both hands down either side of your leg. Reach as far down your leg as you can. Hold for about 20 seconds. Go back to the starting position. Then repeat 5 times. Switch legs. Build Strength Resistance exercises help build strength. You can do them without equipment. Or you can use weights, elastic bands, or special machines. One such exercise is called the biceps curl. You can hold a 1 pound weight or even a can of soup. Do this exercise at least 3 times a week. Strive for everyday. Sit up straight in a chair. Keep your elbow close to your body and your wrist straight. Bend your arm, moving your hand up to your shoulder. Then slowly lower your arm. Repeat 5 times. Switch to the other arm. Build Your Staying Power Aerobic exercises make your heart and lungs stronger so you can keep moving longer. Walking and swimming are two of the best types of exercises you can do. Using a stationary bike is great, too. Find an aerobic exercise that you enjoy. Start slowly and build up. Even 5 minutes is helpful. Aimfor a goal of 30 minutes, at least 3 times a week. You dont have to do 30 minutes in one session. Break it up and walk a little throughout the day. More Helpful Tips Start easy. Slowly work up to doing more. Talk with your healthcare provider about the best exercises for you. Call senior centers or health clubs about exercise programs. If needed, have a family member watch you walk every so often to check your stability. Exercise with a friend. Choose an activity you both enjoy. Try exercises that you can do anytime, anywhere. Here are two examples. Have someone with you when you first try these: Practice walking by placing one foot right in front of the other. Stand up and sit down 10 times. Repeat this throughout the day. [employer] Patient Education Copyright 2008 [employer] except where otherwise noted. Preventing Falls: Moving Safely Using a Cane or Walker (This education is for all patients over 65 regardless of symptoms) Keep the cane away from your feet so you dont trip. A walking aid, such as a cane or walker, can help you stay more independent and avoid falls. Remember to keep your walking aid within easy reach when youre in a chair or in bed. And learn how to use it safely so you dont injure yourself. Using a Cane If you have a stronger side, hold the cane on that side. 17. Get your balance. 18. Move the cane and your weaker leg forward. 19. Support your weight on both the cane and your weaker side. 20. Step with your stronger leg. 21. Start again from step 1. If youre using a folding walker, be sure you know how to lock it open. Check that its locked open before each use. Using a Walker 7. Roll the walker (or lift it, if youre using one without wheels) forward about 12 inches. 8. Step forward with your weaker leg first. 9. Use the walker to help keep your balance. 10. Bring your other foot forward to the center of the walker. 11. Start again from step 1. Helpful Tips Check with your healthcare provider about the right walking aid to use. Ask about a walker with a seat attached. Check the tips of your cane or walker to make sure they have nonskid covers. Move slowly from room to room. Dont dumont. Sit down to get dressed. Use a teressa pack or backpack to keep your hands free. Get help for jobs that mean climbing, even on a stepstool. [employer] Patient Education Copyright 2008 - 2010 [employer] except where otherwise noted. Urinary Incontinence Plan of Care Documentation: (This education is for all patients over 65 regardless of symptoms) Current medications reconciled. Patient encouraged to: Practice kegal exercises Provide education materials Use the restroom every 2 hours throughout the day Limit caffeine, alcohol, spicy foods and acidic foods Keep a bladder diary Limit fluid intake 3-4 hours before bed Lose weight Prevent constipation Take fluid pills at a time when you can get to the bathroom quickly Control sugar better if diabetic Limit fluid intake to 60 oz. per day Wear support stockings (TEDs)if you have edema DEBBIE Barr 10/13/2022 Kegel Exercises Kegel exercises dont require special clothing or equipment. Theyre easy to learn and simple to do. And if you do them right, no one can tell youre doing them, so they can be done almost anywhere. Your doctor, nurse, or physical therapist can answer any questions you have and help you get started. A Weak Pelvic Floor The pelvic floor muscles may weaken due to aging, and vaginal childbirth, injury, surgery, chronic cough, or lack of exercise. If the pelvic floor is weak, your bladder and other pelvic organs may sag out of place. The urethra may also open too easily and allow urine to leak out. Kegel exercises can help you strengthen your pelvic floor muscles so they can better support the pelvic organs and control urine flow. How Kegel Exercises Are Done Try each of the Kegel exercises described below. When youre doing them, try not to move your leg, buttock, or stomach muscles. While youre urinating, try to stop the flow of urine. Start and stop it as often as you can. Contract as if you were stopping your urine stream, but do it when youre not urinating. Tighten your rectum as if trying not to pass gas. Contract your anus, but dont move your buttocks. Helpful Hints Do your Kegels as often as you can. The more you do them, the faster youll feel the results. Pick an activity you do often as a reminder. For instance, do your Kegels every time you sit down. Tighten your pelvic floor before you sneeze, get up from a chair, cough, laugh, or lift. This protects your pelvic floor from injury and can help prevent urine leakage. Try to hold each Kegel for a slow count to five. You probably wont be able to hold them for thatlong at first, but keep practicing. It will get easier as your pelvic floor gets stronger. Eventually, special weights that you place in your vagina may be recommended to help make your Kegels even more effective. [employer] Patient Education Copyright 2009 - 2010 [employer]in except where otherwise noted. Here are some helpful tips for your urinary incontinence: (This education is for all patients over 65 regardless of symptoms) Practice Kegel exercises Use the restroom every 2 hours throughout the day Limit caffeine, alcohol, spicy foods, and acidic foods Keep a bladder diary Limit fluid intake 3-4 hours before bed Lose weight Prevent constipation Take fluid pills at a time when can get to the bathroom quickly Control sugar better if diabetic Limit fluid intake to 60 oz. per day Any questions, please feel free to contact our office. documented in this encounter Progress Notes * Brianne Pal PA-C - 10/13/2022 2:08 PM EST Images from the original note were not included. History of Present Illness Shaina Bustos is a 67 year old female that presents for Return Visit (Patient here to get lift chaircovered under insurance. ) Here for regular return. She is trying to get a lift chair covered by insurance. Patient with known cerebral palsy. She was diagnosed at . She became totally wheelchair dependent about 2.5 years ago. Before that, mobility was impaired butshe could stand and walk a little bit. Now her knees are so bad and legs so weak, that she cannot stand on them. She did try a few years ago to stand on her own and began to fall, family had to assist her back toher bed. She cannot assist to transfer from bed to chair - she uses a Svetlana lift. She is in need of a lift chair to assist her in having better mobility and enable her to be in something other than bed or wheelchair all of the time. Patient is also diabetic. She is therefore at higher risk of damage to her legs if she falls. patient has known diabetic neuropathy. When feet hang, the swell. She has some pain and numbness of a variable nature. This is unpredictable. Hemoglobin AIC Results: Lab Results Component Value Date/Time HEMOGLOBIN A1C - [facility] 7.4 (H) 05/19/2022 02:49 PM HEMOGLOBIN A1C - [facility] 6.9 (H) 01/24/2022 08:34 AM HEMOGLOBIN A1C - [facility] 7.1 (H) 08/19/2021 04:19 PM HEMOGLOBIN A1C - [facility] 9.9 (H) 07/06/2020 05:24 AM HEMOGLOBIN A1C - [facility] 11.0 (H) 05/26/2020 04:44 AM HEMOGLOBIN A1C - [facility] 9.9 (H) 04/28/2020 04:37 PM states that is giving her the insulin that Dr Sanchez told her to take. They are following that schedule. She has not eaten today as she is afraid to have her sugar go up. Physical Exam Vitals: 10/13/22 1351 Temp: 36.9 C (98.4 F) Pulse: 92 Resp: 18 SpO2: 86% BP: 108/62 BMI: 50.47 BP Readings from Last 3 Encounters: 10/13/22 108/62 10/04/22 104/64 09/20/22 114/78 Wt Readings from Last 3 Encounters: 10/13/22 113.4 kg (250 lb) 08/12/22 113.4 kg (250 lb) 05/31/22 113.4 kg (250 lb) BMI Readings from Last 3 Encounters: 10/13/22 50.49 kg/m 08/12/22 50.49 kg/m 05/31/22 50.49 kg/m Ht Readings from Last 3 Encounters: 10/13/22 1.499 m (4' 11") 08/12/22 1.499 m (4' 11") 05/31/22 1.499 m (4' 11") General: alert, healthy and no distress, wheelchair bound, Head: Normocephalic, No masses, lesions, tenderness or abnormalities Heart: regular rate & rhythm, no murmur, no gallops, S-1 normal and S-2 normal Lungs: chest symmetric with normal AP diameter, no chest deformities noted, no chest wall tenderness, lungs clear to auscultation Abdomen: abdomen soft, non-tender, obese, normal bowel sounds and no masses or organomegaly Back: no costovertebral angle tenderness Extremities: less than 2 second capillary refill, strength of legs b/l 0/5 Neuro Exam: alert & oriented x 3 with fluent speech Skin: skin color, texture, turgor are normal, no rashes or significant lesions Assessment and Plan Other cerebral palsy (HCC) (Primary) - as below Weakness of both lower extremities Impaired mobility and ADLs Wheelchair dependent Chronic pain syndrome DDD (degenerative disc disease), lumbar Chronic pain of both knees Chronic diastolic (congestive) heart failure (HCC) Type 2 diabetes mellitus with hemoglobin A1c goal of less than 8.0% ([facility]) - Lantus SoloStar 100 UNIT/ML Subcutaneous Solution Pen-injector; Inject 27 units subcutaneously atbedtime and 27 units subcutaneously in the morning. - HEMOGLOBIN A1C; Future; Expected date: 10/13/2022 - COMPREHENSIVE METABOLIC PANEL; Future; Expected date: 10/13/2022 Risk and functional assessment Obesity, morbid (more than 100 lbs over ideal weight or BMI > 40) ([facility]) Limited mobility HTN, goal below 130/80 At or below goal Acquired hypothyroidism Lab Results Component Value Date/Time TSH - [facility] 0.70 07/06/2022 01:37 PM TSH - [facility] 0.04 (L) 05/19/2022 02:49 PM TSH - [facility] 0.02 (L) 06/10/2021 02:45 PM TSH - [facility] 0.69 07/14/2020 04:24 PM TSH - [facility] 5.15 (H) 02/21/2020 11:43 AM TSH - [facility] 3.16 04/05/2019 06:40 AM TSH - [facility] 0.725 08/24/2018 12:00 AM On meds Dyslipidemia Lipid Panel Results: Results for orders placed or performed in visit on 09/14/21 LIPID PANEL WITH DIRECT LDL IF TG IS HIGH Result Value Ref Range Triglycerides 75 <=174 mg/dL Cholesterol 101 <200 mg/dL HDL Cholesterol 40 (L) >49 mg/dL Non-HDL Cholesterol 61 <=159 mg/dL LDL Cholesterol 46 <=129 mg/dL Patient has 0/5 strength in LE b/l. She has been wheelchair dependent for at least the last 2 years. She cannot transfer. She needs a Svetlana lift to even get in and out of bed. A lift chair would enable safer transfer and allow her to spend time out of chair and bed, this avoiding wounds. Wrap-Up Dr Chan in to see patient. He will cosign paperwork as he is in support of lift chair. Patient does not have rehab potential that precludes her from its use. Rev lantus use - will change her to 27 units bid - avoid the low's is afraid of and bring her down more levelly Continue the same dosing with the meal coverage - follow the instructions/ Time: I spent a total of 30-39 minutes (exact time 35 mins) on the date of service in preparation, delivery, and documentation of the care provided to Shaina Bustos excluding any time spent in the performance of separately billed services. Brianne Pal PA-C 10/13/2022 2:31 PM documented in this encounter Nursing Notes * DEBBIE Barr - 10/13/2022 2:00 PM EST The patient has been properly identified by confirmation of name and date of . Chief Complaint Patient presents with Return Visit Patient here to get lift chair covered under insurance. Patient was complaining of headache and cough with phlegm. Patient was wheezing. documented in this encounter Plan of Treatment Upcoming Encounters Date Type Specialty Care Team Description 10/14/2022 Scheduled Telephone [facility] Jerod Kamini [address] [facility] [place] [id number] 10/14/2022 Hem/Onc Treatment Hematology Oncology [place], Chair 3 [address] Onc [address] [address] 10/17/2022 Scheduled Telephone [facility] Jerod Kamini [address] [facility] [place] [address] 10/26/2022 Pharmacy Pharmacy Pharmacist[facility], [facility] [address] [facility] [id number] 12/06/2022 Office Visit Gastroenterology Lyssa Stout CRNP [address] [facility] [place] [address] 12/08/2022 [facility] [address] [facility] [id number] 02/10/2023 Office Visit Sleep Disorders Love Francisco, DO [address] [place] [id number] 03/01/2023 PulmDiagnostic [facility] [place], [address] [place] [address] Scheduled Orders Name Type Priority Associated Diagnoses Orde r Schedule HEMOGLOBIN A1C Lab Routine Type 2 diabetes mellitus with hemoglobin A1c goal of less than 8.0% (HCC) Expected: 10/13/2022 (Approximate), Expires: 10/13/2023 COMPREHENSIVE METABOLIC PANEL Lab Routine Type 2 diabetes mellitus with hemoglobin A1c goal of less than 8.0% (HCC) Expected: 10/13/2022 (Approximate), Expires: 10/13/2023 Scheduled Procedures Name Priority Associated Diagnoses Date/Ti [...] this encounter Medical Devices Implanted Type Area Booth Usher Device Identifier Shelf Expiration Date Model / Serial / Lot [employer] Sure Clip Implanted:Qty: 2 on 06/03/2020 by Janis Hatch DO at OR [facility] Clip N/A: Colon 04/21/2022 [id number]-F-[id number] 35-C-R / / [id number] documented as of this encounter Visit Diagnoses Diagnosis Other cerebral palsy (HCC)- Primary Weakness of both lower extremities Impaired mobility and ADLs Mechanical problems with limbs Wheelchair dependent Wheelchair dependence Chronic pain syndrome DDD (degenerative disc disease), lumbar Degeneration of lumbar or lumbosacral intervertebral disc Chronic pain of both knees Chronic diastolic (congestive) heart failure (HCC) Type 2 diabetes mellitus with hemoglobin A1c goal of less than 8.0% (HCC) Risk and functional assessment Screening for unspecified condition Obesity, morbid (more than 100 lbs over ideal weight or BMI > 40) (HCC) Morbid obesity HTN, goal below 130/80 Unspecified essential hypertension Acquired hypothyroidism Unspecified hypothyroidism Dyslipidemia Other and unspecified hyperlipidemia documented in this encounter Additional Health Concerns Infection Onset Date Last Indicated Resolved Time 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 No Code Status History Code Status Date Activated Date Inactivated Comments Full Code 12/27/2021 2:50 PM 12/27/2021 8:02 PM This order reflects the patients wishes and were consensually agreed upon. Question Answer Comments Discussion of Advance Directives occurred with: Not Discussed Does the patient have a Living Will? No Does the patient have Health Care Power of Garment Fitter? No Full Code 03/31/2021 8:57 PM 04/03/2021 [...] Syed Bustos Spouse Emergency Contact Care Teams Carbon Setter Relationship Specialty Start Date End Date Vanita Dunn MD [address] [facility] [place] [id number] PCP - General Family Medicine 03/16/21 documented as of this encounter
--- OUTSIDE RECORDS SUMMARY | 2023-05-10 17:26 | External Medical Summary | Summary of Care ---
Author Name Unknown Organization [place] [address] Care Team Providers Care Post Doctoral Researcher Name Role Phone Vanita Dunn MD Primary Care Provid er Reason for Visit * Reason Comments Return Visit Patient here to get lift chair covered under insurance. Encounter Details Date Type Department Care Team Description 10/13/2022 Office Visit [facility] [address] [place] [address] Brianne Pal PA-C [address] [place] [address] Other cerebral palsy (HCC)*; Weakness of both lower extremities; Impaired mobility and ADLs; Wheelchair dependent; Chronic pain syndrome; DDD (degenerative disc disease), lumbar; Chronic pain of both knees; Chronic diastolic (congestive) heart failure ([facility]); Type 2 diabetes mellitus with hemoglobin A1c goal of less than 8.0% ([facility]); Risk and functional assessment; Obesity, morbid (more than 100 lbs over ideal weight or BMI > 40) ([facility]); HTN, goal below 130/80; Acquired hypothyroidism; Dyslipidemia Allergies Active Allergy Reactions Severity Noted Date Comments Adhesive Tape Itching 04/29/2020 Penicillins Rash 02/12/2008 Penicillin G 07/20/2018 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 documented as of this encounter (statuses as of 10/13/2022) Medications Medication Sig Dispensed Refills Start Date End Date Status nystatin (NYSTOP) 377131 UNIT/GM powder Apply topically to affected area 3 times a day. 60 g 1 0 Active Dexcom G6 Assistant Counsel Device Use as directed. To test blood sugars 4 times a day Dx E11.9 1 Each 0 1 Active Dexcom G6 Transmitter Use as directed. To test blood sugars 4 times a day. Change every 90 days. Dx E11.9 1 Each 3 1 Active [employer]Touch Verio In Vitro Strip (Glucose Blood) TESTING once daily 100 Strip 3 1 Active [employer]Touch Delica Plus [id number] TESTING once daily 100 Each 3 1 [...] less than 8.0% ([facility]) 35 Units at breakfast, 39 Units before [...] situation. 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 if a superintendent marine oil terminal plan is made -continue lexapro Impaired mobility [...] pain 01/24/2012 01/17/2017 Genetic Sleep Disorder Research Other*[id number] 05/13/2011 04/07/2016 Obstructive sleep apnea 01/18/2011 12/27/19 [...] 10 times. Repeat this throughout the day. Paperfold Patient Education Copyright 2008 [employer] except where otherwise noted. Preventing Falls: Moving [...] that mean climbing, even on a stepstool. [employer]fold Patient Education Copyright 2008 - 2010 Paperfold except where otherwise noted. Urinary Incontinence Plan [...] less than 8.0% ([facility]) - Lantus SoloStar 100 UNIT/ML Subcutaneous Solution Pen-injector; Inject 27 units subcutaneously atbedtime and 27 units subcutaneously in the morning. - HEMOGLOBIN A1C; Future; Expected date: 10/13/2022 - COMPREHENSIVE METABOLIC PANEL; Future; Expected date: 10/13/2022 Risk and functional assessment Obesity, morbid (more than 100 lbs over ideal weight or BMI > 40) ([facility]) Limited mobility HTN, goal below 130/80 At [...] services. Brianne Pal PA-C 10/13/2022 2:31 PM Addendum: Patient was seen and evaluated . It is recommended she get a lift chair to maintain her independence / Ability to care for herself. Agree with Brianne Pal's assessment. documented in this encounter Nursing Notes * [...] Description 10/14/2022 [facility]uled Tele[facility] [address] [facility] [place] [id number] 10/14/2022 Hem/Onc Treatment Hematology Oncology [place], Chair 3 Hem Onc Scenery [address] [facility] [place] [address] 10/17/2022 Scheduled Telephone [facility] JerodKamini holman [address] [facility] [place] [address] 10/26/2022 Pharmacy Pharmacy Pharmacist1, [facility] [address] [place] [address] 12/06/2022 Office Visit Gastroenterology Lyssa Stout CRNP [address] [facility] [place] [address] 12/08/2022 Office Visit Hematology Oncology Tono Sanchez MD [address] [place] [address] 02/10/2023 Office Visit Sleep Disorders Love Francisco, DO [address] [place] [address] 03/01/2023 PulmDiagnostic Pulmonary Function [place], Pft [address] [place] [address] Scheduled Orders Name Type Priority Associated Diagnoses [...] this encounter Medical Devices Implanted Type Area Field Installer Device Identifier Shelf Expiration Date Model / Serial / Lot Microtech Sure Clip Implanted:Qty: 2 on 06/03/2020 by Janis Hatch DO at OR [facility] Clip N/A: Colon 04/21/2022 ROC-F-26-2 35-C-R / / [id number] documented as of this encounter Visit Diagnoses [...] Documents on File Type Date Recorded Patient Demand Manager Expl anation Advance Directives and Living Will 04/29/2021 ADVANCE DIRECTIVE / LIVING WILL LIVING WILL AND HEALTH CARE POA Power of Science Instructor 04/29/2021 POWER OF A [facility] [...] the patient have Health Care Power of Science Instructor? No Code Status History Code Status Date Activated Date Inactivated Comments Full Code 12/27/2021 2:50 PM 12/27/2021 8:02 PM This order reflects the patients wishes and were consensually agreed upon. Question Answer Comments Discussion of Advance Directives occurred with: Not Discussed Does the patient have a Living Will? No Does the patient have Health Care Power of Science Instructor? No Full Code 03/31/2021 8:57 PM [...] Agents on File Name Relationship Healthcare Agent [facility] Communication Syed Bustos Spouse Emergency Contact Care Teams Post Doctoral Researcher Relationship Specialty Start Date End Date Vanita Dunn MD [address] [place] [address] PCP - General Family Medicine 03/16/21 documented as of this encounter
--- OUTSIDE RECORDS SUMMARY | 2023-05-10 17:26 | External Medical Summary | Summary of Care ---
Author Name Unknown Organization [place] [address] Care Team Providers Care Talent Coordinator Name Role Phone Vanita Dunn MD Primary Care Provid er Reason for Visit * Reason Comments Return Visit Patient here to get lift chair covered under insurance. Encounter Details Date Type Department Care Team Description 10/13/2022 Office Visit [facility] [address] [place] [address] Brianne Pal PA-C [address] [place] [address] Other cerebral palsy (HCC)*; Weakness of both lower extremities; Impaired mobility and ADLs; Wheelchair dependent; Chronic pain syndrome; DDD (degenerative disc disease), lumbar; Chronic pain of both knees; Chronic diastolic (congestive) heart failure ([facility]); Type 2 diabetes mellitus with hemoglobin A1c goal of less than 8.0% ([facility]); Risk and functional assessment; Obesity, morbid (more than 100 lbs over ideal weight or BMI > 40) ([facility]); HTN, goal below 130/80; Acquired hypothyroidism; Dyslipidemia Allergies Active Allergy Reactions Severity Noted Date Comments Adhesive Tape Itching 04/29/2020 Penicillins Rash 02/12/2008 Penicillin G 07/20/2018 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 documented as of this encounter (statuses as of 10/13/2022) Medications Medication Sig Dispensed Refills Start Date End Date Status nystatin (NYSTOP) 856545 UNIT/GM powder Apply topically to affected area 3 times a day. 60 g 1 0 Active Dexcom G6 County Director Device Use as directed. To test blood sugars 4 times a day Dx E11.9 1 Each 0 1 Active Dexcom G6 Transmitter Use as directed. To test blood sugars 4 times a day. Change every 90 days. Dx E11.9 1 Each 3 1 Active Acopia NetworksTouch Verio In Vitro Strip (Glucose Blood) TESTING once daily 100 Strip 3 1 Active [employer]opia NetworksTouch Delica Plus [id number] TESTING once daily 100 Each 3 1 [...] current situation. 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 if a supervisor intermediates plan is made -continue lexapro Impaired mobility [...] 0 Bladder tumor 10/11/2017 02/13/2018 Chronic indwelling Cilne catheter 10/11/2017 02/13/2018 Recurrent UTI 10/11/2017 02/13/2018 [...] pain 01/24/2012 01/17/2017 Genetic Sleep Disorder Research Other*[id number] 05/13/2011 04/07/2016 Obstructive sleep apnea 01/18/2011 12/27/19 [...] 10 times. Repeat this throughout the day. CyberHeart Patient Education Copyright 2008 CyberHeart except where otherwise noted. Preventing Falls: Moving [...] that mean climbing, even on a stepstool. CyberHeart Patient Education Copyright 2008 - 2010 [employer] except where otherwise noted. Urinary Incontinence Plan [...] than 8.0% ([facility]) - Lantus SoloStar 100 UNIT/ML Subcutaneous Solution Pen-injector; Inject 27 units subcutaneously atbedtime and 27 units subcutaneously in the morning. - HEMOGLOBIN A1C; Future; Expected date: 10/13/2022 - COMPREHENSIVE METABOLIC PANEL; Future; Expected date: 10/13/2022 Risk and functional assessment Obesity, morbid (more than 100 lbs over ideal weight or BMI > 40) ([facility]) Limited mobility HTN, goal [...] [facility] [address] [facility] [address] 10/14/2022 Hem/Onc Treatment Hematology Oncology [place], Chair 3 Hem Onc Scenery 200 [facility] [place] [address] 10/17/2022 Scheduled Telephone [facility] JerodKamini holman [address] [facility] [place] [address] 10/26/2022 Pharmacy Pharmacy Pharmacist1, [facility] [address] [place] [address] 12/06/2022 Office Visit Gastroenterology Lyssa Stout CRNP [address] [facility] [place] [address] 12/08/2022 Office Visit Hematology Oncology Tono Sanchez MD 200 [place] [address] 02/10/2023 Office Visit Sleep Disorders Love Francisco, DO [address] [place] [address] 03/01/2023 PulmDiagnostic Pulmonary Function West, Pft [address] [place] [address] Scheduled Orders Name Type Priority Associated Diagnoses [...] this encounter Medical Devices Implanted Type Area Finance Associate Device Identifier Shelf Expiration Date Model / Serial / Lot Microtech Sure Clip Implanted:Qty: 2 on 06/03/2020 by Janis Hatch DO at OR [facility] Clip N/A: Colon 04/21/2022 ROC-F-26-2 35-C-R / / [id number] documented as of this encounter Visit Diagnoses [...] Documents on File Type Date Recorded Patient Coding And Reimbursement Specialist Expl anation Advance Directives and Living Will 04/29/2021 ADVANCE DIRECTIVE / LIVING WILL LIVING WILL AND HEALTH CARE POA Power of Scientific Glass Blower 04/29/2021 POWER OF A [facility] [...] the patient have Health Care Power of Scientific Glass Blower? No Code Status History Code Status Date Activated Date Inactivated Comments Full Code 12/27/2021 2:50 PM 12/27/2021 8:02 PM This order reflects the patients wishes and were consensually agreed upon. Question Answer Comments Discussion of Advance Directives occurred with: Not Discussed Does the patient have a Living Will? No Does the patient have Health Care Power of Scientific Glass Blower? No Full Code 03/31/2021 8:57 PM 04/03/2021 [...] Agents on File Name Relationship Healthcare Agent [facility] Communication Syed Bustos Spouse Emergency Contact Care Teams Talent Coordinator Relationship Specialty Start Date End Date Vanita Dunn MD [address] [place] [address] PCP - General Family Medicine 03/16/21 documented as of this encounter
--- OUTSIDE RECORDS SUMMARY | 2023-05-10 17:27 | External Medical Summary | Summary of Care ---
Author Name Unknown Organization [place] [address] Care Team Providers Care Bmw Service Technician Name Role Phone Vanita Dunn MD Primary Care Provid er Reason for Visit * Reason Onset Date Comments Advice 10/11/2022 Encounter Details Date Type Department Care Team Description 10/11/2022 Telephone [facility] [address] [place] [address] Vanita Dunn MD [address] [place] [address] Advice Allergies Active Allergy Reactions Severity Noted Date Comments Adhesive Tape Itching 04/29/2020 Penicillins Rash 02/12/2008 Penicillin G 07/20/2018 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 documented as of this encounter (statuses as of 10/11/2022) Medications Medication Sig Dispensed Refills Start Date End Date Status nystatin (NYSTOP) 931613 UNIT/GM powder Apply topically to affected area 3 times a day. 60 g 1 10/16/2019 Active Dexcom G6 Video Recorder Mechanic Device Use as directed. To test blood sugars 4 times a day Dx E11.9 1 Each 0 09/14/2020 Active Dexcom G6 Transmitter Use as directed. To test blood sugars 4 times a day. Change every 90 days. Dx E11.9 1 Each 3 09/14/2020 Active OneTouch Verio In Vitro Strip (Glucose Blood) TESTING once daily 100 Strip 3 10/29/2020 Active OneTouch Delica Plus [id number] TESTING once daily 100 Each 3 10/29/2020 Active Nitroglycerin 0.4 MG Sublingual Tablet Sublingual (Nitrostat) Place 1 Tab under the tongue every 5 minutes as needed for Pain, Chest. up to 3 doses in 15 minutes 25 Tab 11 03/03/2021 Active Additional Information Patient not taking.Reported on [...] DAILY DIRECTED 16 g 5 06/11/2021 Active Budesonide-Formotero l Fumarate 160-4.5 MCG/ACT Inhalation Aerosol Inhale 2 [...] Extended ReleaseIndications:H ypokalemia Take by mouth 1 Tablet in the morning. With food.. 90 Tablet 3 12/21/2021 Active Lidocaine-Prilocaine 2.5-2.5 % External Cream (Emla)Indications:En counter for antineoplastic chemotherapy Apply topically to affected [...] 3 05/12/2022 Active Benzonatate 200 MG Oral CapsuleIndications:B ronchitis, complicated Take by mouth 1 Capsule as needed in the morning AND 1 Capsule as needed at noon AND 1 Capsule as needed in the evening for Cough. 30 Capsule 1 05/13/2022 Active Additional Information Patient not taking.Reported on 10/04/2022 Levothyroxine Sodium 150 MCG Oral Tablet (Levoxyl)Indications [...] Active traMADol HCl 50 MG Oral Tablet (Ultram)Indications: Abdominal pain, generalized Take by mouth 2 Tablets every 6 hours as needed for Pain, Severe (abdominal pain). 40 Tablet 0 06/13/2022 Active Additional Information Patient not taking.Reported on 08/12/2022 Silver sulfADIAZINE 1 % External Cream (Silvadene)Indicatio ns:Pressure injury of skin of sacral region, unspecified injury stage Apply topically to affected area daily . Apply to wound 85 g 11 07/06/2022 Active Nadolol 40 MG Oral Tablet (Corgard)Indications [...] 07/29/2022 Active Gabapentin 300 MG Oral Capsule (Neurontin)Indicatio [...] before supper 120 mL 3 07/28/2022 Active Lantus SoloStar 100 UNIT/ML Subcutaneous Solution Pen-injectorIndicati ons:Type 2 diabetes mellitus with hemoglobin A1c goal of less than 8.0% (HCC) Inject 50 Units under the skin every night at bedtime. 45 mL 3 07/28/2022 Active Escitalopram Oxalate 20 MG Oral Tablet (Lexapro)Indications :Recurrent major depressive disorder, in partial remission (HCC) TAKE 1 TABLET BY MOUTH DAILY 90 Tablet 0 08/04/2022 Active Fluticasone-Salmeter ol 250-50 MCG/ACT Inhalation Aerosol [...] as of this encounter (statuses as of 10/11/2022) Active Problems Problem Noted Date Hypertensive heart [...] as of this encounter (statuses as of 10/11/2022) Resolved Problems Problem Noted Date Resolved Date [...] pain 01/24/2012 01/17/2017 Genetic Sleep Disorder Research Other*[id number] 05/13/2011 04/07/2016 Obstructive sleep apnea 01/18/2011 12/27/19 [...] as of this encounter (statuses as of 10/11/2022) Immunizations Name Administration Dates Next Due COVID-19 [...] encounter Miscellaneous Notes * Telephone Encounter - Brianne Pal PA-C - 10/11/2022 4:54 PM EST I will attempt to address but she defers to him in every appointment I have had with her Brianne Pal PA-C * Telephone Encounter - Vivian Izquierdo LPN - 10/11/2022 11:07 AM EST [facility] nursing calling with concerns about non compliance of novolog and BS constantly being elevated. gives pt her medication and reports he uses sliding scale to give novolog. Hospital d/c order and [facility] med list both have pt taking novolog B 35 units. L 39 units and S 45 units. Husbanddoes not follow this just giving what he feels she needs. He is not able to verbalize a definite amount stating " I just give her what I feel she needs." He doesn't want her BS to drop too low. Pt wears a Dexcom system that consistently shows pt's blood sugar in the 200's. Today during visit non fasting blood sugar was 224. [place] are both concerned needs education on use of Novolog and DM dx. They did their best to educate but he continued to say he is going to continue his way. Pt has appt with Brianne on 10/13 documented in this encounter Plan of Treatment Upcoming Encounters Date Type Specialty Care Team Description 10/13/2022 Office Visit Family Medicine Brianne Pal PA-C [address] [place] [address] 10/14/2022 Scheduled Telephone [facility] Kamini Newsome [address] [facility] [place] [address] 10/14/2022 Hem/Onc Treatment Hematology Oncology [place], Chair 3 Hem [address] [address] 10/17/2022 Scheduled Telephone [facility] Kamini Newsome [address] [facility] [place] [address] 10/26/2022 Pharmacy Pharmacy Pharmacist1, [facility] [address] [place] [address] 12/06/2022 Office Visit Gastroenterology Lyssa Stout CRNP [address] [place] [address] 12/08/2022 Office Visit Hematology Oncology Tono Sanchez MD [address] [facility] [place] [address] 02/10/2023 Office Visit Sleep Disorders Love Francisco, [address] [place] [address] 03/01/2023 PulmDiagnostic Pulmonary Function West, Pft [address] [facility] [place] [address] Scheduled Procedures Name Priority Associated Diagnoses Date/Ti [...] this encounter Medical Devices Implanted Type Area Campaign Consultant Device Identifier Shelf Expiration Date Model / Serial / Lot Microtech Sure Clip Implanted:Qty: 2 on 06/03/2020 by Janis Hatch DO at OR [facility] Clip N/A: Colon 04/21/2022 [facility]-F-26-2 35-C-R / / [id number] documented as of this encounter Additional Health Concerns Infection Onset Date Last Indicated Resolved Time MRSA 09/17/2022 09/17/2022 documented as of this encounter Advance Directives Documents on File Type Date Recorded Patient Forestry Fire Aid Expl anation Advance Directives and Living Will 04/29/2021 ADVANCE DIRECTIVE / LIVING WILL LIVING WILL AND HEALTH CARE POA Power of Iron Worker Foreman 04/29/2021 POWER OF A [facility] [...] patient have Health Care Power of Iron Worker Foreman? No Code Status History Code Status Date Activated Date Inactivated Comments Full Code 12/27/2021 2:50 PM 12/27/2021 8:02 PM This order reflects the patients wishes and were consensually agreed upon. Question Answer Comments Discussion of Advance Directives occurred with: Not Discussed Does the patient have a Living Will? No Does the patient have Health Care Power of Iron Worker Foreman? No Full Code 03/31/2021 8:57 PM 04/03/2021 [...] File Name Relationship [facility] Syed Bustos Spouse Emergency Contact Care Teams Bmw Service Technician Relationship Specialty Start Date End Date Vanita Dunn MD [address], [place] [id number] PCP - General Family Medicine 03/16/21 documented as of this encounter
--- OUTSIDE RECORDS SUMMARY | 2023-05-10 17:27 | External Medical Summary | Summary of Care ---
Author Name Unknown Organization [place] [address] Care Team Providers Care Traffic Sign Supervisor Name Role Phone Vanita Dunn MD Primary Care Provid er Reason for Visit * Reason Onset Date Comments Home Health 10/03/2022 Encounter Details Date Type Department Care Team Description 10/03/2022 Telephone [facility] [address] [place] [address] Vanita Dunn MD [address] [place] [address] Home Health Allergies Active Allergy Reactions Severity Noted Date Comments Adhesive Tape Itching 04/29/2020 Penicillins Rash 02/12/2008 Penicillin G 07/20/2018 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 documented as of this encounter (statuses as of 10/13/2022) Medications Medication Sig Dispensed Refills Start Date End Date Status nystatin (NYSTOP) 607563 UNIT/GM powder Apply topically to affected area 3 times a day. 60 g 1 10/16/2019 Active Dexcom G6 Commercial Energy Auditor Device Use as directed. To test blood sugars 4 times a day Dx E11.9 1 Each 0 09/14/2020 Active Dexcom G6 Transmitter Use as directed. To test blood sugars 4 times a day. Change every 90 days. Dx E11.9 1 Each 3 09/14/2020 Active OneTouch Verio In Vitro Strip (Glucose Blood) TESTING once daily 100 Strip 3 10/29/2020 Active OneTouch Delica Plus [id number] TESTING once daily 100 Each 3 10/29/2020 [...] a shelter plan is made -continue lexapro Impaired mobility [...] pain 01/24/2012 01/17/2017 Genetic Sleep Disorder Research Other*[id number] 05/13/2011 04/07/2016 Obstructive sleep apnea 01/18/2011 12/27/19 [...] encounter Miscellaneous Notes * Telephone Encounter - Kiesha Schmitt LPN - 10/13/2022 9:54 AM EST Found 10/05/22 that pt not interedted in strengthing exercises. Education on pressure relieving strategies and need for daily limb movement * Telephone Encounter - Vanita Dunn MD - 10/05/2022 12:28 PM EST Nursing - I am unsure of what is being asked. Can you confirm if paper orders received by fax? AG * Telephone Encounter - Yanira Graves LPN - 10/03/2022 12:07 PM EST Patient is ordered home health services: [facility]/PT/OT Order was placed while pt was admitted to: [facility] for Cellulitis RLE Start of Care was done 10/02/22 Patient was to be placed but they could not find her placement She will be at home and receiving 40 hr week care The area on RLE (toe) is healed Will fax over orders to be signed Last office visit 08/30/2022 Next office visit 10/13/2022 Please advise Please call Sarah rueda at [phone] documented in this encounter Plan of Treatment Upcoming Encounters Date Type Specialty Care Team Description 10/13/2022 Office Visit Family Medicine Brianne Pal PA-C [address] [facility] [place] [address] 10/14/2022 Scheduled Telephone [facility] Kamini Newsome [address] [facility] [place] [address] 10/14/2022 Hem/Onc Treatment Hematology Oncology [place], Chair 3 [address] [address] 10/17/2022 Scheduled Telephone [facility] Kamini Newsome [address] [facility] [place] [address] 10/26/2022 Pharmacy Pharmacy Pharmacist1, [facility] [address] 12/06/2022 Office Visit Gastroenterology Lyssa Stout CRNP [address] [place] [address] 12/08/2022 Office Visit Hematology Oncology [facility] [address] 02/10/2023 Office Visit Sleep Disorders Love Francisco DO [address] [place] [address] 03/01/2023 PulmDiagnostic Pulmonary Function West, Pft [address] [place] [address] Scheduled Procedures Name Priority Associated Diagnoses Date/Ti [...] this encounter Medical Devices Implanted Type Area Heat Seal Operator Device Identifier Shelf Expiration Date Model / Serial / Lot Microtech Sure Clip Implanted:Qty: 2 on 06/03/2020 by Janis Hatch DO at OR [facility] Clip N/A: Colon 04/21/2022 [facility]-F-26-2 35-C-R / / [id number] documented as of this encounter Additional Health Concerns Infection Onset Date Last Indicated Resolved Time MRSA 09/17/2022 09/17/2022 documented as of this encounter Advance Directives Documents on File Type Date Recorded Patient Sales Support Advisor Expl anation Advance Directives and Living Will 04/29/2021 ADVANCE DIRECTIVE / LIVING WILL LIVING WILL AND HEALTH CARE POA Power of Wireline Supervisor 04/29/2021 POWER OF A TTORNEY HEALTH [...] the patient have Health Care Power of Wireline Supervisor? No Code Status History Code Status Date Activated Date Inactivated Comments Full Code 12/27/2021 2:50 PM 12/27/2021 8:02 PM This order reflects the patients wishes and were consensually agreed upon. Question Answer Comments Discussion of Advance Directives occurred with: Not Discussed Does the patient have a Living Will? No Does the patient have Health Care Power of Wireline Supervisor? No Full Code 03/31/2021 8:57 PM [...] Syed Bustos Spouse Emergency Contact Care Teams Traffic Sign Supervisor Relationship Specialty Start Date End Date Vanita Dunn MD [address] [place] [address] PCP - General Family Medicine 03/16/21 documented as of this encounter
--- OUTSIDE RECORDS SUMMARY | 2023-05-10 17:27 | External Medical Summary | Summary of Care ---
Author Name Unknown Organization [place] [address] Care Team Providers Care Permastone Installer Name Role Phone Vanita Dunn MD Primary Care Provid er Reason for Visit * Reason Onset Date Comments Medication Management 10/10/2022 venofer Encounter Details Date Type Department Care Team Description 10/10/2022 Telephone Hematology/Oncology [address] [address] Tono Sanchez MD [address] [place] [address] Medication Management (venofer) Allergies Active Allergy Reactions Severity Noted Date Comments Adhesive Tape Itching 04/29/2020 Penicillins Rash 02/12/2008 Penicillin G 07/20/2018 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 documented as of this encounter (statuses as of 10/10/2022) Medications Medication Sig Dispensed Refills Start Date End Date Status nystatin (NYSTOP) 549437 UNIT/GM powder Apply topically to affected area 3 times a day. 60 g 1 10/16/2019 Active Dexcom G6 Natural Fabricator Device Use as directed. To test blood sugars 4 times a day Dx E11.9 1 Each 0 09/14/2020 Active Dexcom G6 Transmitter Use as directed. To test blood sugars 4 times a day. Change every 90 days. Dx E11.9 1 Each 3 09/14/2020 Active OneTouch Verio In Vitro Strip (Glucose Blood) TESTING once daily 100 Strip 3 10/29/2020 Active OneTouch Delica Plus [id number] TESTING once daily 100 Each 3 10/29/2020 [...] as of this encounter (statuses as of 10/10/2022) Active Problems Problem Noted Date Hypertensive heart [...] as of this encounter (statuses as of 10/10/2022) Resolved Problems Problem Noted Date Resolved Date Food insecurity 09/20/2021 02/24/2022 Overview: Per [facility] Protocol Food insecurity 04/19/2021 09/13/2021 Overview: Per [facility] Protocol Lactic acidosis 03/22/2021 09/13/2021 Anginal chest pain at rest 02/20/202109/132 Acute on chronic heart failu re with [...] pain 01/24/2012 01/17/2017 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 * Telephone Encounter - Dinorah Teixeira LPN - 10/10/2022 9:25 AM EST Marli called office on nursing line, states that scheduling cannot be reached to Schedule Venofer, Please call [phone] to schedule on 503 Venofer (Sanchez) documented in this encounter Plan of Treatment Upcoming Encounters Date Type Specialty Care Team Description 10/13/2022 Office Visit Family Medicine Brianne Pal PA-C [address] [facility] [place] [phone] 10/14/2022 [facility]uled [facility] K[facility]i Newsome [address] [facility] [place] [address] 10/14/2022 Hem/Onc Treatment Hematology Oncology [place], Chair 3 Hem Onc [facility] [address] 10/17/2022 Scheduled Telephone [facility] Kamini Newsome [address] [facility] [place] [address] 10/26/2022 Pharmacy Pharmacy Pharmacist1, [facility] Sp 200 [facility] [place] [address] 12/06/2022 Office Visit Gastroenterology Lyssa Stout CRNP 132 [facility] [place] [address] 12/08/2022 Office Visit Hematology Oncology Tono Sanchez MD [address] [facility] [address] 02/10/2023 Office Visit Sleep Disorders Love Francisco, [address] [place] [address] 03/01/2023 PulmDiagnostic Pulmonary Function West, Pft 132 [facility] [place] [address] Scheduled Procedures Name Priority Associated Diagnoses Date/Ti [...] this encounter Medical Devices Implanted Type Area Local Operator Device Identifier Shelf Expiration Date Model / Serial / Lot Microtech Sure Clip Implanted:Qty: 2 on 06/03/2020 by Janis Hatch DO at OR [facility] Clip N/A: Colon 04/21/2022 [facility]-F-26-2 35-C-R / / [id number] documented as of this encounter Additional Health Concerns Infection Onset Date Last Indicated Resolved Time MRSA 09/17/2022 09/17/2022 documented as of this encounter Advance Directives Documents on File Type Date Recorded Patient Therapist Asst Expl anation Advance Directives and Living Will 04/29/2021 ADVANCE DIRECTIVE / LIVING WILL LIVING WILL AND HEALTH CARE POA Power of Customer Engagement Analyst 04/29/2021 POWER OF A TTORNEY HEALTH [...] the patient have Health Care Power of Customer Engagement Analyst? No Code Status History Code Status Date Activated Date Inactivated Comments Full Code 12/27/2021 2:50 PM 12/27/2021 8:02 PM This order reflects the patients wishes and were consensually agreed upon. Question Answer Comments Discussion of Advance Directives occurred with: Not Discussed Does the patient have a Living Will? No Does the patient have Health Care Power of Customer Engagement Analyst? No Full Code 03/31/2021 8:57 PM [...] Syed Bustos Spouse Emergency Contact Care Teams Permastone Installer Relationship Specialty Start Date End Date Vanita Dunn MD [address] [place] [phone] PCP - General Family Medicine 03/16/21 documented as of this encounter
--- OUTSIDE RECORDS SUMMARY | 2023-05-10 17:29 | External Medical Summary | Summary of Care ---
Author Name Unknown Organization [place] [address] Care Team Providers Care Heat Treating Furnace Tender Name Role Phone Vanita Dunn MD Primary Care Provid er Reason for Visit * Reason Onset Date Comments Home Health 10/03/2022 Encounter Details Date Type Department Care Team Description 10/03/2022 Telephone [facility] [address] [place] [address] Vanita Dunn MD [address] [place] [address] Home Health Allergies Active Allergy Reactions Severity Noted Date Comments Adhesive Tape Itching 04/29/2020 Penicillins Rash 02/12/2008 Penicillin G 07/20/2018 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 documented as of this encounter (statuses as of 10/05/2022) Medications Medication Sig Dispensed Refills Start Date End Date Status nystatin (NYSTOP) 649229 UNIT/GM powder Apply topically to affected area 3 times a day. 60 g 1 10/16/2019 Active Dexcom G6 Mechanical Equipment Sales Engineer Device Use as directed. To test blood sugars 4 times a day Dx E11.9 1 Each 0 09/14/2020 Active Dexcom G6 Transmitter Use as directed. To test blood sugars 4 times a day. Change every 90 days. Dx E11.9 1 Each 3 09/14/2020 Active OneTouch Verio In Vitro Strip (Glucose Blood) TESTING once daily 100 Strip 3 10/29/2020 Active OneTouch Delica Plus [id number] TESTING once daily 100 Each 3 10/29/2020 [...] as of this encounter (statuses as of 10/05/2022) Active Problems Problem Noted Date Hypertensive heart [...] as of this encounter (statuses as of 10/05/2022) Resolved Problems Problem Noted Date Resolved Date [...] pain 01/24/2012 01/17/2017 Genetic Sleep Disorder Research Other*[id number] 05/13/2011 04/07/2016 Obstructive sleep apnea 01/18/2011 12/27/19 [...] as of this encounter (statuses as of 10/05/2022) Immunizations Name Administration Dates Next Due COVID-19 [...] EST Patient is ordered home health services: [facility]/PT/OT Order was placed while pt was admitted to: [facility] for Cellulitis RLE Start of Care was done 10/02/22 Patient was to be placed but they could not find her placement She will be at home and receiving 40 hr week care The area on RLE (toe) is healed Will fax over orders to be signed Last office visit 08/30/2022 Next office visit 10/13/2022 Please advise Please call Sarah rueda at [phone] documented in this encounter Plan of Treatment Upcoming Encounters Date Type Specialty Care Team Description 10/13/2022 Office Visit Family Medicine Brianne Pal PA-C [address] [place] [address] 10/14/2022 Scheduled Telephone [facility] Kamini Newsome [address] [facility] [place] [address] 10/17/2022 Scheduled Telephone [facility] Kamini Newsome [address] [facility] [place] [address] 10/26/2022 Pharmacy Pharmacy Pharmacist1, [facility] [address] [place] [address] 12/06/2022 Office Visit Gastroenterology Lyssa Stout CRNP [address] [place] [address] 12/08/2022 Office Visit Hematology Oncology Tono Sanchez MD 200 [place] [address] 02/10/2023 Office Visit Sleep Disorders Love Francisco DO 132 [facility] [place] [address] 03/01/2023 PulmDiagnostic Pulmonary Function West, Pft 132 [facility] [place] [address] Scheduled Procedures Name Priority Associated Diagnoses Date/Ti [...] this encounter Medical Devices Implanted Type Area Children'S Institution Attendant Device Identifier Shelf Expiration Date Model / Serial / Lot Microtech Sure Clip Implanted:Qty: 2 on 06/03/2020 by Janis Hatch DO at OR [facility] Clip N/A: Colon 04/21/2022 [facility]-F-26-2 35-C-R / / [id number] documented as of this encounter Additional Health Concerns Infection Onset Date Last Indicated Resolved Time MRSA 09/17/2022 09/17/2022 documented as of this encounter Advance Directives Documents on File Type Date Recorded Patient Ticket Agent Expl anation Advance Directives and Living Will 04/29/2021 ADVANCE DIRECTIVE / LIVING WILL LIVING WILL AND HEALTH CARE POA Power of Digester Capper 04/29/2021 POWER OF A TTORNEY HEALTH CARE [...] the patient have Health Care Power of Digester Capper? No Code Status History Code Status Date Activated Date Inactivated Comments Full Code 12/27/2021 2:50 PM 12/27/2021 8:02 PM This order reflects the patients wishes and were consensually agreed upon. Question Answer Comments Discussion of Advance Directives occurred with: Not Discussed Does the patient have a Living Will? No Does the patient have Health Care Power of Digester Capper? No Full Code 03/31/2021 8:57 PM 04/03/2021 [...] Agents on File Name Relationship Healthcare Agent [facility] Communication Syed Bustos Spouse Emergency Contact Care Teams Heat Treating Furnace Tender Relationship Specialty Start Date End Date Vanita Dunn MD [address] [place] [address] PCP - General Family Medicine 03/16/21 documented as of this encounter
--- OUTSIDE RECORDS SUMMARY | 2023-05-10 17:29 | External Medical Summary | Summary of Care ---
Author Name Unknown Organization [place] [address] Care Team Providers Care Steel Checker Name Role Phone Vanita Dunn MD Primary Care Provid er Reason for Visit * Reason Onset Date Comments Medication Management 10/10/2022 venofer Encounter Details Date Type Department Care Team Description 10/10/2022 Telephone Hematology/Oncology [address] [address] Tono Sanchez MD [address] [place] [address] Medication Management (venofer) Allergies Active Allergy Reactions Severity Noted Date Comments Adhesive Tape Itching 04/29/2020 Penicillins Rash 02/12/2008 Penicillin G 07/20/2018 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 documented as of this encounter (statuses as of 10/10/2022) Medications Medication Sig Dispensed Refills Start Date End Date Status nystatin (NYSTOP) 614880 UNIT/GM powder Apply topically to affected area 3 times a day. 60 g 1 10/16/2019 Active Dexcom G6 Wood Hacker Device Use as directed. To test blood sugars 4 times a day Dx E11.9 1 Each 0 09/14/2020 Active Dexcom G6 Transmitter Use as directed. To test blood sugars 4 times a day. Change every 90 days. Dx E11.9 1 Each 3 09/14/2020 Active OneTouch Verio In Vitro Strip (Glucose Blood) TESTING once daily 100 Strip 3 10/29/2020 Active OneTouch Delica Plus [id number] TESTING once daily 100 Each 3 10/29/2020 [...] pain 01/24/2012 01/17/2017 Genetic Sleep Disorder Research Other*[id number] 05/13/2011 04/07/2016 Obstructive sleep apnea 01/18/2011 12/27/19 [...] be reached to Schedule Venofer, Please call [phone] to schedule on 503 Venofer (Sanchez) documented in this encounter Plan of Treatment Upcoming Encounters Date Type Specialty Care Team Description 10/13/2022 Office Visit Family Medicine Brianne Pal PA-C [address] [facility] [place] [id number] 10/14/2022 Scheduled Telephone [facility] Kamini Newsome [address] [facility] [place] [address] 10/14/2022 Hem/Onc Treatment Hematology Oncology [place], Chair 3 Hem Onc [facility] [address] [facility] [address] 10/17/2022 Scheduled Telephone [facility] Kamini Newsome [address] [facility] [place] [address] 10/26/2022 Pharmacy Pharmacy Pharmacist1, [facility] [address] [facility] [place] [address] 12/06/2022 Office Visit Gastroenterology Lyssa Stout CRNP 132 [facility] [place] [address] 12/08/2022 Office Visit Hematology Oncology [facility]ono Sanchez [facility] [address] 02/10/2023 Office Visit Sleep Disorders Love Francisco, [address] [place] [address] 03/01/2023 PulmDiagnostic Pulmonary Function West, Pft 132 [facility] [place] [address] Scheduled Procedures Name Priority Associated Diagnoses Date/Ti [...] this encounter Medical Devices Implanted Type Area Wildlife Veterinarian Device Identifier Shelf Expiration Date Model / Serial / Lot Microtech Sure Clip Implanted:Qty: 2 on 06/03/2020 by Janis Hatch DO at OR [facility] Clip N/A: Colon 04/21/2022 [facility]-F-26-2 35-C-R / / [id number] documented as of this encounter Additional Health Concerns Infection Onset Date Last Indicated Resolved Time MRSA 09/17/2022 09/17/2022 documented as of this encounter Advance Directives Documents on File Type Date Recorded Patient 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 No Code Status History Code Status Date Activated Date Inactivated Comments Full Code 12/27/2021 2:50 PM 12/27/2021 8:02 PM This order reflects the patients wishes and were consensually agreed upon. Question Answer Comments Discussion of Advance Directives occurred with: Not Discussed Does the patient have a Living Will? No Does the patient have Health Care Power of Technology Lab Teacher? No Full Code 03/31/2021 8:57 PM [...] Syed Bustos Spouse Emergency Contact Care Teams Steel Checker Relationship Specialty Start Date End Date Vanita Dunn MD [address] [place] [phone] PCP - General Family Medicine 03/16/21 documented as of this encounter
--- OUTSIDE RECORDS SUMMARY | 2023-05-10 17:29 | External Medical Summary | Summary of Care ---
Author Name Unknown Organization [place] [address] Care Team Providers Care Precision Lens Grinder Apprentice Name Role Phone Vanita Dunn MD Primary Care Provid er Reason for Visit * Reason Comments [facility]: Maintenance Encounter Details Date Type Department Care Team Description 10/04/2022 Home Visit [facility], [facility] [address] [facility] [place] [address] July Poe RN [address] [facility] [place] [address] Advanced care planning/counseling discussion* Allergies Active Allergy Reactions Severity Noted Date Comments Adhesive Tape Itching 04/29/2020 Penicillins Rash 02/12/2008 Penicillin G 07/20/2018 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 documented as of this encounter (statuses as of 10/05/2022) Medications Medication Sig Dispensed Refills Start Date End Date Status nystatin (NYSTOP) 271488 UNIT/GM powder Apply topically to affected area 3 times a day. 60 g 1 10/16/2019 Active Dexcom G6 Flume Ride Operator Device Use as directed. To test blood sugars 4 times a day Dx E11.9 1 Each 0 09/14/2020 Active Dexcom G6 Transmitter Use as directed. To test blood sugars 4 times a day. Change every 90 days. Dx E11.9 1 Each 3 09/14/2020 Active OneTouch Verio In Vitro Strip (Glucose Blood) TESTING once daily 100 Strip 3 10/29/2020 Active OneTouch Delica Plus [id number] TESTING once daily 100 Each 3 10/29/2020 [...] current situation. 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 if a ad terminal makeup operator plan is made -continue lexapro Impaired [...] pain 01/24/2012 01/17/2017 Genetic Sleep Disorder Research Other*[id number] 05/13/2011 04/07/2016 Obstructive sleep apnea 01/18/2011 12/27/19 [...] Sign Reading Time Taken Comments Blood Pressure 104/64 10/04/2022 2:09 PM EST Pulse 65 10/04/2022 2:09 PM EST Temperature 36.8 C (98.3 F) 10/04/2022 2:09 PM ES T Respiratory Rate 18 10/04/2022 2:09 PM EST Oxygen Saturation 97% 10/04/2022 2:09 PM EST Inhaled Oxygen Concentration - - [...] Progress Notes * July Poe RN - 10/04/2022 11:14 AM EST [facility] Chief Visit Date: 10/04/2022 Time: 1:14 PM Name: Shaina Bustos : 1955 Current Concerns: Pt admitted to [facility] 09/21/22 - 10/01/22 for diabetic right toe infection, ambulatory dysfunction. Pt treated for infection, which was + MRSA, and plan was for placement at SNF, but was denied. She is now home with who has trouble caring for her. SW has contacted her home service director and they are looking into getting "[employer] shader [employer] toner" for an aide 40 hrs/wk Waiver has been unable to provide a caregiver for pt Getting home health SN, PT and OT through [facility] Physical Exam: BP 104/64 | Pulse 65 | Temp 36.8 C (98.3 F) | Resp 18 | SpO2 97% [...] Endocrine: Negative. Genitourinary: Positive for vaginal bleeding (minimal, intermittent). Musculoskeletal: Positive for gait problem (non-ambulatory). Skin: Negative. Hematological: Negative. Psychiatric/Behavioral: Negative. Medication Reconciliation: (See medication list) Does patient take medications as ordered: Yes Patient Well Being: PHQ2/9: No questionnaires available. No change in livign [facility]-10 Completed this [facility] Reason Completed: Status post ED visit/hospital admission [facility]-10 Interventions: Fall education provided, reviewed/provided Fall brochure Advanced Care Planning: Healthcare POA. and No documentation, ACP updated today. Patient's Goals of Care: 1. Remain in home 2. Get out more Reinforcement/Education: Reviewed HF symptom [...] of Care, including self-management and medication regimen Updated Advanced Care Planning Note Patient's 'Red Flags': 1. Increased cough with yellow/green sputum 2. Change in mental status/confusion 3. No bm in 24 hrs Patient Needs to Remember: Call [facility] at with any new or worsening health concerns or problems, red flag symptoms. Referrals Needed: Other none Follow Up: Is there cellular connectivity/connectivity in the home? Yes Does the patient have internet in the home? Yes Patient encouraged to call the intake phone number for all urgent but not emergent issues. Is the patient new to [employer] [facility] within the last 30 days? No, Assess appropriateness for upcoming telehealth visits. Cancel telehealth visits & schedule home visit with care steam conditioner filling(s)as indicated. Provider is in agreement with Plan of Care: Yes Scheduled to follow up with patient per [facility] schedule. July Poe RN 10/04/2022 1:14 PM documented in this encounter Miscellaneous Notes * ACP (Advance Care Planning) - July Poe RN - 10/04/2022 2:44 PM EST Patient-centered Communication 10/04/2022 The patient/surrogate voluntarily agreed to participate in advance care planning discussion. They were advised that this is a separate service which may incur out of pocket cost in the form of copayment and/or deductibles. Location: Home Individual(s) present for conversation: Patient and Spouse Decisions Contains data within 10/04/2022 to 10/04/2022 and each row's most recent data. Newer data is on the left. Synopsis SmartLink Most Recent Value Past ~10 years 10/04/2022 14:24 Decisions CPR decision: Patient chooses CPR 10/04/2022 Patient chooses CPR Intubation/Mechanical Ventilation decision: Patient chooses Intubation/mechanical ventilation 10/04/2022 Patient chooses Intubation/mechanical ventilation Non-invasive ventilation or BIPAP decision: Patient chooses non-invasive ventilation. Select interventions below 10/04/2022 Patient chooses non-invasive ventilation. Select interventions below Non-Invasive Ventilation Interventions: Oxygen only;CPAP;BIPAP;NIV 10/04/2022 Oxygen only;CPAP;BIPAP;NIV Antibiotic therapy decision: Patient chooses Antibiotic therapy 10/04/2022 Patient chooses Antibiotic therapy IV hydration decision: Patient chooses IV hydration 10/04/2022 Patient chooses IV hydration Chemotherapy decision: Patient chooses Chemotherapy 10/04/2022 Patient chooses Chemotherapy Radiation therapy decision: Patient chooses Radiation therapy 10/04/2022 Patient chooses Radiation therapy Surgical procedure(s) decision: Patient chooses Surgical procedure 10/04/2022 Patient chooses Surgical procedure Blood transfusion decision: Patient chooses Blood transfusion 10/04/2022 Patient chooses Blood transfusion Lab draw decision: Patient chooses Lab draws 10/04/2022 Patient chooses Lab draws Transport decision: Patient chooses Transport 10/04/2022 Patient chooses Transport Dying at home decision: Patient chooses Dying at home 10/04/2022 Patient chooses Dying at home Dialysis decision: Patient chooses Dialysis 10/04/2022 Patient chooses Dialysis Additional Comments Newer data is on the left. Discerning What Matters Most to the Patient: [...] comment The patient's HOPES are: Avoid the jail 10/21/2021 Avoid the jail The patient defines LIVING WELL as: stay out of jail 10/21/2021 stay out of jail The patient's FEARS/WORRIES about illness are: Going to a jail 10/21/2021 Going to a jail The patient considers these as 'UNACCEPTABLE OUTCOMES': Prolonged jail stay (define below) 10/21/2021 Prolonged jail stay (define below) Prolonged jail stay, patient defines as: I won't come home 10/21/2021 I won't come home The patient's cultural or spiritual BELIEFS that may affect health care decisions: no 10/21/2021 no Source: Content from [facility] Choices Program Aligning Care With What Matters Most: Contains data within 10/04/2022 to 10/04/2022 and each row's most recent data. Newer data is on the left. Synopsis SmartLink Most Recent Value Past ~10 years 10/04/2022 14:24 Aligning Care With What Matters Most Interventions/Choices: CPR;Intubation/mechanical ventilation;Non-invasive ventilation or BIPAP;Antibiotic therapy;IV hydration;Chemotherapy;Radiation therapy;Surgical procedure;Blood transfusion;Lab draws;Transport; at home;Dialysis 10/04/2022 CPR;Intubation/mechanical ventilation;Non-invasive ventilation or BIPAP;Antibiotic therapy;IV hydration;Chemotherapy;Radiation therapy;Surgical procedure;Blood transfusion;Lab draws;Transport; at home;Dialysis Rationale for Decisions Contains data within 10/21/2021 to 10/21/2021 and each row's most recent data. Newer data is on the left. Synopsis SmartLink Most Recent Value Past ~10 years 10/21/2021 08:56 CPR They describe the benefits and burdens of CPR treatment as: to keep going 10/21/2021 to keep going Their goals for CPR treatment are: to keep going 10/21/2021 to keep going Newer data is on the left. Newer data is on the left. Newer data is on the left. Newer data is on the left. Newer data is on the left. Newer data is on the left. Newer data is on the left. Newer data is on the left. Newer data is on the left. Newer data is on the left. Newer data is on the left. Newer data is on the left. Newer data is on the left. Newer data is on the left. Source: Content from [facility]pecting Choices Program 15 minutes spent in direct [id number]-dhjh discussion today, July Poe RN documented in this encounter Plan of Treatment Upcoming Encounters Date Type Specialty Care Team Description 10/13/2022 Office Visit Family Medicine Brianne Pal PA-C [address] [place] [address] 10/14/2022 Scheduled Telephone [facility] Kamini Newsome [address] [facility] [place] [address] 10/17/2022 Scheduled Telephone [facility] Kamini Newsome [address] [facility] [place] [address] 10/26/2022 Pharmacy Pharmacy Pharmacist1, [facility] [address] [place] [address] 12/06/2022 Office Visit Gastroenterology Lyssa Stout CRNP [address] [facility] [place] [address] 12/08/2022 Office Visit Hematology Oncology Tono Sanchez MD [address] [place] [address] 02/10/2023 Office Visit Sleep Disorders Love Francisco, DO [address] [facility] [place] [address] 03/01/2023 PulmDiagnostic Pulmonary Function [place], Pft [address] [place] [address] Scheduled Procedures Name Priority Associated Diagnoses Date/Ti [...] this encounter Medical Devices Implanted Type Area Poultry Killer Device Identifier Shelf Expiration Date Model / Serial / Lot Microtech Sure Clip Implanted:Qty: 2 on 06/03/2020 by Janis Hatch DO at OR [facility] Clip N/A: Colon 04/21/2022 [facility]-F-26-2 35-C-R / / [id number] documented as of this encounter Visit Diagnoses Diagnosis Advanced care planning/counseling discussion- Primary Other specified counseling documented in this encounter Additional Health Concerns Infection Onset Date Last Indicated Resolved Time MRSA 09/17/2022 09/17/2022 documented as of this encounter Advance Directives Documents on File Type Date Recorded Patient Chief Of Surgery Expl anation Advance Directives and Living Will 04/29/2021 ADVANCE DIRECTIVE / LIVING WILL LIVING WILL AND HEALTH CARE POA Power of Fuel Efficient Automobile Designer 04/29/2021 POWER OF A [facility] [...] the patient have Health Care Power of Fuel Efficient Automobile Designer? No Code Status History Code Status Date Activated Date Inactivated Comments Full Code 12/27/2021 2:50 PM 12/27/2021 8:02 PM This order reflects the patients wishes and were consensually agreed upon. Question Answer Comments Discussion of Advance Directives occurred with: Not Discussed Does the patient have a Living Will? No Does the patient have Health Care Power of Fuel Efficient Automobile Designer? No Full Code 03/31/2021 8:57 PM [...] Syed Bustos Spouse Emergency Contact Care Teams Precision Lens Grinder Apprentice Relationship Specialty Start Date End Date Vanita Dunn MD [address] [place] [address] PCP - General Family Medicine 03/16/21 documented as of this encounter
--- OUTSIDE RECORDS SUMMARY | 2023-05-10 17:29 | External Medical Summary | Summary of Care ---
Author Name Unknown Organization [place] [address] Care Team Providers Care Senior Linux Unix Administrator Name Role Phone Vanita Dunn MD Primary Care Provid er Reason for Visit * Reason Onset Date Comments Appointment 10/04/2022 Encounter Details Date Type Department Care Team Description 10/04/2022 Telephone Hematology/Oncology [facility] [address] [place] [address] Tono Pichardo MD [address] [place] [address] Appointment Allergies Active Allergy Reactions Severity Noted Date Comments Adhesive Tape Itching 04/29/2020 Penicillins Rash 02/12/2008 Penicillin G 07/20/2018 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 documented as of this encounter (statuses as of 10/10/2022) Medications Medication Sig Dispensed Refills Start Date End Date Status nystatin (NYSTOP) 416410 UNIT/GM powder Apply topically to affected area 3 times a day. 60 g 1 10/16/2019 Active Dexcom G6 Wallcovering Texturer Device Use as directed. To test blood sugars 4 times a day Dx E11.9 1 Each 0 09/14/2020 Active Dexcom G6 Transmitter Use as directed. To test blood sugars 4 times a day. Change every 90 days. Dx E11.9 1 Each 3 09/14/2020 Active OneTouch Verio In Vitro Strip (Glucose Blood) TESTING once daily 100 Strip 3 10/29/2020 Active OneTouch Delica Plus [id number] TESTING once daily 100 Each 3 10/29/2020 [...] senior care plan is made -continue lexapro Impaired [...] pain 01/24/2012 01/17/2017 Genetic Sleep Disorder Research Other*[id number] 05/13/2011 04/07/2016 Obstructive sleep apnea 01/18/2011 12/27/19 [...] Telephone Encounter - THAD Serna - 10/10/2022 9:35 AM EST Patients sister in law called in and patient is scheduled for venofer for 10/14/21. * Telephone Encounter - THAD Serna - 10/05/2022 9:48 AM EST Called and lmom for patient. * Telephone Encounter - Renetta Schuler RN - 10/04/2022 3:46 PM EST Scheduling: please contact pt to schedule for Venofer (labs from port), 2hr appt, 503 schedule. Nursing can assist with scheduling future appts next time pt is here for treatment. Thanks! * Telephone Encounter - THAD Gastelum - 10/04/2022 3:12 PM EST Nursing- pt and called, pt is no longer in the hospital and pt was not able to get into [facility] (sp?)- they would like to reschedule treatment and get back on track. They thought she wouldbe in assisted living so they cancelled feb appt with dr pichardo. Next avail is November 23. Please advise on how to move forward. documented in this encounter Plan of Treatment Upcoming Encounters Date Type Specialty Care Team Description 10/13/2022 Office Visit Family Medicine Brianne Pal PA-C [address] [place] [address] 10/14/2022 Scheduled Telephone [facility] Kamini Newsome [address] [facility] [place] [address] 10/14/2022 Hem/Onc Treatment Hematology Oncology [place], Chair 3 Hem Onc [address] [address] 10/17/2022 Scheduled Telephone [facility] Kamini Newsome [address] [facility] [place] [address] 10/26/2022 [facility] Pharmacist1, [facility] [address] [facility] [address] 12/06/2022 Office Visit Gastroenterology Lyssa Stout CRNP [address] [place] [address] 12/08/2022 Office Visit [facility]ematology Oncology [facility] [address] [facility] [address] 02/10/2023 Office Visit Sleep Disorders Love Francisco, [address] [place] [address] 03/01/2023 PulmDiagnostic Pulmonary Function [place], Pft [address] [place] [address] Scheduled Procedures Name Priority Associated Diagnoses Date/Ti [...] this encounter Medical Devices Implanted Type Area Closer On Device Identifier Shelf Expiration Date Model / Serial / Lot Microtech Sure Clip Implanted:Qty: 2 on 06/03/2020 by Janis Hatch DO at OR [facility] Clip N/A: Colon 04/21/2022 [facility]-F-26-2 35-C-R / / [id number] documented as of this encounter Additional Health Concerns Infection Onset Date Last Indicated Resolved Time MRSA 09/17/2022 09/17/2022 documented as of this encounter Advance Directives Documents on File Type Date Recorded Patient Hat Blocker Expl anation Advance Directives and Living Will 04/29/2021 ADVANCE DIRECTIVE / LIVING WILL LIVING WILL AND HEALTH CARE POA Power of Drying And Winding Supervisor 04/29/2021 POWER OF A [facility]NEY [facility] [...] the patient have Health Care Power of Drying And Winding Supervisor? No Code Status History Code Status Date Activated Date Inactivated Comments Full Code 12/27/2021 2:50 PM 12/27/2021 8:02 PM This order reflects the patients wishes and were consensually agreed upon. Question Answer Comments Discussion of Advance Directives occurred with: Not Discussed Does the patient have a Living Will? No Does the patient have Health Care Power of Drying And Winding Supervisor? No Full Code 03/31/2021 8:57 PM [...] Agents on File Name Relationship [facility] Syed Bustos Spouse Emergency Contact Care Teams Senior Linux Unix Administrator Relationship Specialty Start Date End Date Vanita Dunn MD [address] [place] [address] PCP - General Family Medicine 03/16/21 documented as of this encounter
[2023-05-10] MEDS ORDERED: Nursing to Pharmacy Communication SCH (17:30)
--- OUTSIDE RECORDS SUMMARY | 2023-05-10 17:30 | External Medical Summary | Summary of Care ---
Author Name Unknown Organization [place] [address] Care Team Providers Care Stabilizing Machine Operator Name Role Phone Vanita Dunn MD Primary Care Provid er Reason for Visit * Reason Onset Date Comments Appointment 10/04/2022 Encounter Details Date Type Department Care Team Description 10/04/2022 Telephone Hematology/Oncology [facility] [address] [place] [address] Tono Pichardo MD [address] [place] [address] Appointment Allergies Active Allergy Reactions Severity Noted Date Comments Adhesive Tape Itching 04/29/2020 Penicillins Rash 02/12/2008 Penicillin G 07/20/2018 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 documented as of this encounter (statuses as of 10/04/2022) Medications Medication Sig Dispensed Refills Start Date End Date Status nystatin (NYSTOP) 300425 UNIT/GM powder Apply topically to affected area 3 times a day. 60 g 1 10/16/2019 Active Dexcom G6 Deputy Harbormaster Device Use as directed. To test blood sugars 4 times a day Dx E11.9 1 Each 0 09/14/2020 Active Dexcom G6 Transmitter Use as directed. To test blood sugars 4 times a day. Change every 90 days. Dx E11.9 1 Each 3 09/14/2020 Active OneTouch Verio In Vitro Strip (Glucose Blood) TESTING once daily 100 Strip 3 10/29/2020 Active OneTouch Delica Plus [id number] TESTING once daily 100 Each 3 10/29/2020 [...] as of this encounter (statuses as of 10/04/2022) Active Problems Problem Noted Date Hypertensive heart [...] a residential plan is made -continue lexapro Impaired mobility [...] as of this encounter (statuses as of 10/04/2022) Resolved Problems Problem Noted Date Resolved Date [...] pain 01/24/2012 01/17/2017 Genetic Sleep Disorder Research Other*[id number] 05/13/2011 04/07/2016 Obstructive sleep apnea 01/18/2011 12/27/19 [...] as of this encounter (statuses as of 10/04/2022) Immunizations Name Administration Dates Next Due COVID-19 [...] Family Medicine Brianne Pal PA-C [address] [place] [address] 10/14/2022 Scheduled Telephone [facility] Kamini Newsome [address] [place] [address] 10/17/2022 Scheduled Telephone [facility] Kamini Newsome [address] [place] [address] 10/26/2022 Pharmacy Pharmacy Pharmacist1, [facility] [address] [place] [address] 12/06/2022 Office Visit Gastroenterology Lyssa Stout CRNP [address] [facility] [place] [address] 12/08/2022 Office Visit Hematology Oncology Tono Pichardo MD [address] [place] [address] 02/10/2023 Office Visit Sleep Disorders Love Francisco, [address] [facility] [place] [address] 03/01/2023 PulmDiagnostic Pulmonary Function West, Pft [address] [facility] [place] [address] Scheduled Procedures Name Priority Associated Diagnoses Date/Ti [...] this encounter Medical Devices Implanted Type Area Construction Pit Worker Device Identifier Shelf Expiration Date Model / Serial / Lot Microtech Sure Clip Implanted:Qty: 2 on 06/03/2020 by Janis Hatch DO at OR [facility] Clip N/A: Colon 04/21/2022 [facility]-F-26-2 35-C-R / / [id number] documented as of this encounter Additional Health Concerns Infection Onset Date Last Indicated Resolved Time MRSA 09/17/2022 09/17/2022 documented as of this encounter Advance Directives Documents on File Type Date Recorded Patient Enterprise Cloud Architect Expl anation Advance Directives and Living Will 04/29/2021 ADVANCE DIRECTIVE / LIVING WILL LIVING WILL AND HEALTH CARE POA Power of Rig Superintendent 04/29/2021 POWER OF A [facility] CARE [...] the patient have Health Care Power of Rig Superintendent? No Code Status History Code Status Date Activated Date Inactivated Comments Full Code 12/27/2021 2:50 PM 12/27/2021 8:02 PM This order reflects the patients wishes and were consensually agreed upon. Question Answer Comments Discussion of Advance Directives occurred with: Not Discussed Does the patient have a Living Will? No Does the patient have Health Care Power of Rig Superintendent? No Full Code 03/31/2021 8:57 PM 04/03/2021 [...] Syed Bustos Spouse Emergency Contact Care Teams Stabilizing Machine Operator Relationship Specialty Start Date End Date Vanita Dunn MD [address] [place] [address] PCP - General Family Medicine 03/16/21 documented as of this encounter
--- OUTSIDE RECORDS SUMMARY | 2023-05-10 17:30 | External Medical Summary | Summary of Care ---
Author Name Unknown Organization [place] [address] Care Team Providers Care Contract Admin Name Role Phone Vanita Dunn MD Primary Care Provid er Reason for Visit * Reason Onset Date Comments Appointment 10/04/2022 Encounter Details Date Type Department Care Team Description 10/04/2022 Telephone Hematology/Oncology [facility] [address] [place] [address] Tono Pichardo MD [address] [place] [address] Appointment Allergies Active Allergy Reactions Severity Noted Date Comments Adhesive Tape Itching 04/29/2020 Penicillins Rash 02/12/2008 Penicillin G 07/20/2018 Perflutren Protein A Microsph 2019 Definity-lower back pain documented as of this encounter (statuses as of 10/05/2022) Medications Medication Sig Dispensed Refills Start Date End Date Status nystatin (NYSTOP) 095057 UNIT/GM powder Apply topically to affected area 3 times a day. 60 g 1 10/16/2019 Active Dexcom G6 Flight Test Data Acquisition Technician Device Use as directed. To test blood sugars 4 times a day Dx E11.9 1 Each 0 09/14/2020 Active Dexcom G6 Transmitter Use as directed. To test blood sugars 4 times a day. Change every 90 days. Dx E11.9 1 Each 3 09/14/2020 Active OneTouch Verio In Vitro Strip (Glucose Blood) TESTING once daily 100 Strip 3 10/29/2020 Active OneTouch Delica Plus [id number] TESTING once daily 100 Each 3 10/29/2020 [...] pain 01/24/2012 01/17/2017 Genetic Sleep Disorder Research Other*[id number] 05/13/2011 04/07/2016 Obstructive sleep apnea 01/18/2011 12/27/19 [...] lmom for patient. * Telephone Encounter - Rneetta Schuler RN - 10/04/2022 3:46 PM EST [...] Family Medicine Brianne Pal PA-C [address] [facility] [place] [address] 10/14/2022 Scheduled Telephone [facility] Kamini Newsome [address] [facility] [place] [address] 10/17/2022 Scheduled Telephone [facility]amini Newsome [address] [facility] [address] 10/26/2022 Pharmacy Pharmacy Pharmacist1, [facility] [address] [place] [address] 12/06/2022 Office Visit Gastroenterology Lyssa Stout CRNP [address] [facility] [place] [address] 12/08/2022 Office Visit Hematology Oncology Tono Pichardo MD [address] [place] [address] 02/10/2023 Office Visit Sleep Disorders Love Francisco, [address] [place] [address] 03/01/2023 PulmDiagnostic Pulmonary Function [place], Pft [address] [place] [address] Scheduled Procedures Name Priority Associated Diagnoses Date/Ti [...] this encounter Medical Devices Implanted Type Area Backwinder Device Identifier Shelf Expiration Date Model / Serial / Lot Microtech Sure Clip Implanted:Qty: 2 on 06/03/2020 by Janis Hatch DO at OR [facility] Clip N/A: Colon 04/21/2022 [facility]-F-26-2 35-C-R / / [id number] documented as of this encounter Additional Health Concerns Infection Onset Date Last Indicated Resolved Time MRSA 09/17/2022 09/17/2022 documented as of this encounter Advance Directives Documents on File Type Date Recorded 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 No Code Status History Code Status Date Activated Date Inactivated Comments Full Code 12/27/2021 2:50 PM 12/27/2021 8:02 PM This order reflects the patients wishes and were consensually agreed upon. Question Answer Comments Discussion of Advance Directives occurred with: Not Discussed Does the patient have a Living Will? No Does the patient have Health Care Power of Instructor Traffic Safety? No Full Code 03/31/2021 8:57 PM 04/03/2021 [...] Agents on File Name Relationship Healthcare Agent [facility] p Communication Syed Bustos Spouse Emergency Contact Care Teams Contract Admin Relationship Specialty Start Date End Date Vanita Dunn MD [address] [place], [place] [id number] PCP - General Family Medicine 03/16/21 documented as of this encounter
--- OUTSIDE RECORDS SUMMARY | 2023-05-10 17:30 | External Medical Summary | Summary of Care ---
Author Name Unknown Organization [place] [address] Care Team Providers Care Pilot Supervisor Name Role Phone Vanita Dunn MD Primary Care Provid er Reason for Visit * Reason Onset Date Comments Appointment 10/04/2022 Encounter Details Date Type Department Care Team Description 10/04/2022 Telephone Hematology/Oncology [facility] [address] [place] [address] Tono Pichardo MD [address] [place] [address] Appointment Allergies Active Allergy Reactions Severity Noted Date Comments Adhesive Tape Itching 04/29/2020 Penicillins Rash 02/12/2008 Penicillin G 07/20/2018 Perflutren Protein A Microsph 2019 Definity-lower back pain documented as of this encounter (statuses as of 10/04/2022) Medications Medication Sig Dispensed Refills Start Date End Date Status nystatin (NYSTOP) 286088 UNIT/GM powder Apply topically to affected area 3 times a day. 60 g 1 10/16/2019 Active Dexcom G6 Construction Laborer Device Use as directed. To test blood sugars 4 times a day Dx E11.9 1 Each 0 09/14/2020 Active Dexcom G6 Transmitter Use as directed. To test blood sugars 4 times a day. Change every 90 days. Dx E11.9 1 Each 3 09/14/2020 Active OneTouch Verio In Vitro Strip (Glucose Blood) TESTING once daily 100 Strip 3 10/29/2020 Active OneTouch Delica Plus [id number] TESTING once daily 100 Each 3 10/29/2020 [...] current situation. 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 if a care home plan is made -continue lexapro Impaired [...] pain 01/24/2012 01/17/2017 Genetic Sleep Disorder Research Other*[id number] 05/13/2011 04/07/2016 Obstructive sleep apnea 01/18/2011 12/27/19 [...] Description 10/13/2022 Office Visit Family Medicine Brianne Pal, PA-C [address] [place] [address] 10/14/2022 Scheduled Telephone [facility] Kamini Newsome [address] [facility] [place] [address] 10/17/2022 Scheduled Telephone [facility] Kamini Newsome [address] [facility] [place] [address] 10/26/2022 Pharmacy Pharmacy Pharmacist1, [facility] [address] [place] [address] 12/06/2022 Office Visit Gastroenterology Lyssa Stout CRNP [address] [facility] [place] [address] 12/08/2022 Office Visit Hematology Oncology Tono Pichardo MD [address] [facility], [place] [address] 02/10/2023 Office Visit Sleep Disorders Love Francisco DO [address] [place] [address] 03/01/2023 PulmDiagnostic Pulmonary Function [place], Pft [address] [place] [address] Scheduled Procedures Name Priority Associated Diagnoses Date/Ti [...] encounter Medical Devices Implanted Type Area Water Valve Repairer Device Identifier Shelf Expiration Date Model / Serial / Lot Microtech Sure Clip Implanted:Qty: 2 on 06/03/2020 by Janis Hatch DO at OR [facility] Clip N/A: Colon 04/21/2022 [facility]-F-26-2 35-C-R / / [id number] documented as of this encounter Additional Health Concerns Infection Onset Date Last Indicated Resolved Time MRSA 09/17/2022 09/17/2022 documented as of this encounter Advance Directives Documents on File Type Date Recorded Patient Home Care Associate Expl anation Advance Directives and Living Will 04/29/2021 ADVANCE DIRECTIVE / LIVING WILL LIVING WILL AND HEALTH CARE POA Power of Transfer Man 04/29/2021 POWER OF A TTORNEY HEALTH [...] the patient have Health Care Power of Transfer Man? No Code Status History Code Status Date Activated Date Inactivated Comments Full Code 12/27/2021 2:50 PM 12/27/2021 8:02 PM This order reflects the patients wishes and were consensually agreed upon. Question Answer Comments Discussion of Advance Directives occurred with: Not Discussed Does the patient have a Living Will? No Does the patient have Health Care Power of Transfer Man? No Full Code 03/31/2021 8:57 PM [...] Syed Bustos Spouse Emergency Contact Care Teams Pilot Supervisor Relationship Specialty Start Date End Date Vanita Dunn MD [address] [place] [phone] PCP - General Family Medicine 03/16/21 documented as of this encounter
--- OUTSIDE RECORDS SUMMARY | 2023-05-10 17:31 | External Medical Summary | Summary of Care ---
Author Name Unknown Organization [place] [address] Care Team Providers Care Diesel Mechanic Helper Name Role Phone Vanita Dunn MD Primary Care Provid er Reason for Visit * Reason Comments Advisory Intern Documentation Encounter Details Date Type Department Care Team Description 10/03/2022 Advisory Intern [facility] [address] [place] [address] Preethi Rivera, [facility] REP [address] [place] [address] Allergies Active Allergy Reactions Severity Noted Date Comments Adhesive Tape Itching 04/29/2020 Penicillins Rash 02/12/2008 Penicillin G 07/20/2018 Perflutren Protein A Microsph 2019 Definity-lower back pain documented as of this encounter (statuses as of 10/03/2022) Medications Medication Sig Dispensed Refills Start Date End Date Status nystatin (NYSTOP) 043689 UNIT/GM powder Apply topically to affected area 3 times a day. 60 g 1 10/16/2019 Active Dexcom G6 Tile Roofer Device Use as directed. To test blood sugars 4 times a day Dx E11.9 1 Each 0 09/14/2020 Active Dexcom G6 Transmitter Use as directed. To test blood sugars 4 times a day. Change every 90 days. Dx E11.9 1 Each 3 09/14/2020 Active OneTouch Verio In Vitro Strip (Glucose Blood) TESTING once daily 100 Strip 3 10/29/2020 Active OneTouch Delica Plus [id number] TESTING once daily 100 Each 3 10/29/2020 [...] goal of less than 8.0% ([facility]) Inject 50 Units under the [...] as of this encounter (statuses as of 10/03/2022) Active Problems Problem Noted Date Hypertensive heart [...] intermediate manager plan is made -continue lexapro Impaired mobility [...] as of this encounter (statuses as of 10/03/2022) Resolved Problems Problem Noted Date Resolved Date [...] pain 01/24/2012 01/17/2017 Genetic Sleep Disorder Research Other*[id number] 05/13/2011 04/07/2016 Obstructive sleep apnea 01/18/2011 12/27/19 [...] as of this encounter (statuses as of 10/03/2022) Immunizations Name Administration Dates Next Due COVID-19 [...] encounter Progress Notes * CHRISSY Velázquez - 10/03/2022 2:41 PM EST This worker received return phone call from [facility] WAIVER Software Security Consultant, Aleyda at [phone]. Aleyda reported to this worker that she was made aware that Shaina was discharged from the hospital on Monday. Shaina continues to have no aides at home. Aleyda reported to this worker that she had spoke to admissions from "[employer]" and they were to do an evaluation and provide the hours/care for Shaina. Aleyda was going to follow up with the agency and give Shaina a call to update her as well. No other information at this time. CHRISSY Velázquez Tuber Machine Operator Helper [facility] documented in this encounter Plan of Treatment Upcoming Encounters Date Type Specialty Care Team Description 10/04/2022 Home Visit [facility] July Poe RN [address] [facility] [place] [address] 10/13/2022 Office Visit Family Medicine [facility] Pal [facility]-C [address] [facility] [id number] 10/14/2022 Scheduled Telephone [facility] Kamini Newsome [address] [facility] [place] [address] 10/17/2022 Scheduled Telephone [facility]amini Newsome [address] [facility] [place] [address] 10/26/2022 Pharmacy Pharmacy Pharmacist1, [facility] [address] [place] [address] 12/06/2022 Office Visit Gastroenterology Lyssa Stout CRNP [address] [facility] [place] [address] 12/08/2022 Office Visit Hematology Oncology Tono Sanchez MD [address] [place] [address] 02/10/2023 Office Visit Sleep Disorders Love Francisco, [address] [facility] [place] [address] 03/01/2023 PulmDiagnostic Pulmonary Function [place], Pft [address] [place] [address] Scheduled Procedures Name Priority Associated Diagnoses Date/Ti [...] this encounter Medical Devices Implanted Type Area Chief Nursing Executive Device Identifier Shelf Expiration Date Model / Serial / Lot Microtech Sure Clip Implanted:Qty: 2 on 06/03/2020 by Janis Hatch DO at OR [facility] Clip N/A: Colon 04/21/2022 [facility]-F-26-2 35-C-R / / [id number] documented as of this encounter Additional Health Concerns Infection Onset Date Last Indicated Resolved Time MRSA 09/17/2022 09/17/2022 documented as of this encounter Advance Directives Documents on File Type Date Recorded Patient Geothermal Field Technician Expl anation Advance Directives and Living Will 04/29/2021 ADVANCE DIRECTIVE / LIVING WILL LIVING WILL AND HEALTH CARE POA Power of Transition Coach 04/29/2021 POWER OF A TTORNEY HEALTH [...] the patient have Health Care Power of Transition Coach? No Code Status History Code Status Date Activated Date Inactivated Comments Full Code 12/27/2021 2:50 PM 12/27/2021 8:02 PM This order reflects the patients wishes and were consensually agreed upon. Question Answer Comments Discussion of Advance Directives occurred with: Not Discussed Does the patient have a Living Will? No Does the patient have Health Care Power of Transition Coach? No Full Code 03/31/2021 8:57 PM [...] Syed Bustos Spouse Emergency Contact Care Teams Diesel Mechanic Helper Relationship Specialty Start Date End Date Vanita Dunn MD [address] [place] [address] PCP - General Family Medicine 03/16/21 documented as of this encounter
--- OUTSIDE RECORDS SUMMARY | 2023-05-10 17:31 | External Medical Summary | Summary of Care ---
Author Name Unknown Organization [place] [address] Care Team Providers Care Chief Controller Name Role Phone Vanita Dunn MD Primary Care Provid er Reason for Visit * Reason Onset Date Comments Fax 09/19/2022 [employer] - needs notes re: reason for needing the recliner chair Encounter Details Date Type Department Care Team Description 09/19/2022 Telephone [facility] [address] [place] [address] Vanita Dunn MD [address] [place] [address] Fax ([employer]... Allergies Active Allergy Reactions Severity Noted Date Comments Adhesive Tape Itching 04/29/2020 Penicillins Rash 02/12/2008 Penicillin G 07/20/2018 Perflutren Protein A Microsph 2019 Definity-lower back pain documented as of this encounter (statuses as of 10/03/2022) Medications Medication Sig Dispensed Refills Start Date End Date Status nystatin (NYSTOP) 035486 UNIT/GM powder Apply topically to affected area 3 times a day. 60 g 1 10/16/2019 Active Dexcom G6 Loader Machine Device Use as directed. To test blood sugars 4 times a day Dx E11.9 1 Each 0 09/14/2020 Active Dexcom G6 Transmitter Use as directed. To test blood sugars 4 times a day. Change every 90 days. Dx E11.9 1 Each 3 09/14/2020 Active OneTouch Verio In Vitro Strip (Glucose Blood) TESTING once daily 100 Strip 3 10/29/2020 Active OneTouch Delica Plus [id number] TESTING once daily 100 Each 3 10/29/2020 [...] TIMES DAILY 1200 mL 0 09/16/2022 Active Doxycycline Hyclate 100 MG Oral CapsuleIndications:C ellulitis of toe of right foot,Open toe wound, initial encounter Take 1 Capsule by mouth in the morning and 1 Capsule before bedtime. Do all this for 10 days. Until gone.. 20 Capsule 0 09/17/2022 3 Mupirocin 2 % External Ointment (Bactroban)Indicatio ns:Cellulitis of toe of right foot,Open toe wound, initial encounter Apply topically to affected area 2 times a day for 14 days. 22 g 0 09/17/2022 3 Hospital, Clinic, or Other Facility Administered Medication [...] 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 if a long term acute care registered nurse plan is made -continue lexapro Impaired mobility [...] pain 01/24/2012 01/17/2017 Genetic Sleep Disorder Research Other*[id number] 05/13/2011 04/07/2016 Obstructive sleep apnea 01/18/2011 12/27/19 [...] Miscellaneous Notes * Telephone Encounter - THAD Bruner - 10/03/2022 3:52 PM EST Contact from a care coordination service called on behalf of the pt to check on this request. Informed her that pt would need a return visit to discuss ordering this DME. learning coordinator agreed to inform patient of this. * Telephone Encounter - THAD Stevens - 09/27/2022 3:07 PM EST Pt was admitted to [facility] and is planned for nursing care at [facility]. Please revisit recliner request with pt's next PCP visit. * Telephone Encounter - Memo Snider MD - 09/21/2022 6:38 PM EST Unfortunately this was not discussed at visit. The visit was an acute for headache only. Telehealthvs in person to discuss and have documented. Memo Snider MD * Telephone Encounter - Carmelina Higgins LPN - 09/21/2022 5:10 PM EST Was this discussed at all at recent OV - and would you addend note to reflect the need? Please advise. * Telephone Encounter - THAD Elliott - 09/19/2022 11:21 AM EST Caller requesting the following information to be faxed: Name/Company of caller: [employer] Information requested to be faxed: Chart notes explaining why she needs the reclinier Fax number: [phone] Attention to Name/Company: [employer] Any additional information?: Call back# for Pam [phone] ext [phone] documented in this encounter Plan of Treatment Upcoming Encounters Date Type Specialty Care Team Description 10/04/2022 Home Visit [facility] July Poe RN [address] [place] [address] 10/13/2022 Office Visit Family Medicine Brianne Pal PA-C [address] [facility] [id number] 10/14/2022 Scheduled Telephone [facility] Kamini Newsome [address] [facility] [place] [address] 10/17/2022 Scheduled Telephone [facility] Kamini Newsome [address] [facility] [place] [address] 10/26/2022 Pharmacy Pharmacy Pharmacist1, [facility] [address] [place] [address] 12/06/2022 Office Visit Gastroenterology Lyssa Stout CRNP [address] [facility] [place] [address] 12/08/2022 Office Visit Hematology Oncology Tono Sanchez MD [address] [facility] [place] [address] 02/10/2023 Office Visit Sleep Disorders Love Francisco DO [address] [place] [address] 03/01/2023 PulmDiagnostic Pulmonary Function [place], Pft [address] [place] [address] Scheduled Procedures Name Priority Associated Diagnoses Date/Ti [...] encounter Medical Devices Implanted Type Area Java Tech Device Identifier Shelf Expiration Date Model / Serial / Lot Microtech Sure Clip Implanted:Qty: 2 on 06/03/2020 by Janis Hatch DO at OR [facility] Clip N/A: Colon 04/21/2022 [facility]-F-26-2 35-C-R / / [id number] documented as of this encounter Additional Health Concerns Infection Onset Date Last Indicated Resolved Time MRSA 09/17/2022 09/17/2022 documented as of this encounter Advance Directives Documents on File Type Date Recorded Patient Case Resolution Specialist Expl anation Advance Directives and Living Will 04/29/2021 ADVANCE DIRECTIVE / LIVING WILL LIVING WILL AND HEALTH CARE POA Power of Pot Operator 04/29/2021 POWER OF A TTORNEY HEALTH [...] the patient have Health Care Power of Pot Operator? No Code Status History Code Status Date Activated Date Inactivated Comments Full Code 12/27/2021 2:50 PM 12/27/2021 8:02 PM This order reflects the patients wishes and were consensually agreed upon. Question Answer Comments Discussion of Advance Directives occurred with: Not Discussed Does the patient have a Living Will? No Does the patient have Health Care Power of Pot Operator? No Full Code 03/31/2021 8:57 PM [...] Bustos Spouse Emergency Contact Care Teams Chief Controller Relationship Specialty Start Date End Date Vanita Dunn MD [address] [place] [id number] PCP - General Family Medicine 03/16/21 documented as of this encounter
--- OUTSIDE RECORDS SUMMARY | 2023-05-10 17:32 | External Medical Summary | Summary of Care ---
Author Name Unknown Organization [place] [address] Care Team Providers Care Kiln Furniture Caster Name Role Phone Vanita Dunn MD Primary Care Provid er Reason for Visit * Reason Comments Lathe Operator Documentation Encounter Details Date Type Department Care Team Description 10/03/2022 Lathe Operator [facility] [address] [place] [address] Preethi Rivera, SPRAY CEMENTER [address] [place] [address] Allergies Active Allergy Reactions Severity Noted Date Comments Adhesive Tape Itching 04/29/2020 Penicillins Rash 02/12/2008 Penicillin G 07/20/2018 Perflutren Protein A Microsph 2019 Definity-lower back pain documented as of this encounter (statuses as of 10/03/2022) Medications Medication Sig Dispensed Refills Start Date End Date Status nystatin (NYSTOP) 519999 UNIT/GM powder Apply topically to affected area 3 times a day. 60 g 1 10/16/2019 Active Dexcom G6 Help Desk Engineer Device Use as directed. To test blood sugars 4 times a day Dx E11.9 1 Each 0 09/14/2020 Active Dexcom G6 Transmitter Use as directed. To test blood sugars 4 times a day. Change every 90 days. Dx E11.9 1 Each 3 09/14/2020 Active OneTouch Verio In Vitro Strip (Glucose Blood) TESTING once daily 100 Strip 3 10/29/2020 Active OneTouch Delica Plus [id number] TESTING once daily 100 Each 3 10/29/2020 [...] hemoglobin A1c goal of less than 8.0% ([facility]) Inject 50 Units under the [...] situation. 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 if a buttermaker plan is made -continue lexapro Impaired mobility [...] pain 01/24/2012 01/17/2017 Genetic Sleep Disorder Research Other*[id number] 05/13/2011 04/07/2016 Obstructive sleep apnea 01/18/2011 12/27/19 [...] Progress Notes * CHRISSY Velázquez - 10/03/2022 1:30 PM EST This worker was consulted by PATTY Suárez. D/C home due to insurance denial for SNF Chart was reviewed. This worker contacted Shaina @ [phone]. Contact was made with Shaina. Pt reports that she believes that Home Health will begin on Monday.Shaina continues to have no aides from [facility]. Shaina stated that she is trying to be okay because she knows that she has to stay at home and make it work. This worker attempted to reach out to academic coordinator, Aleyda at [phone]. Unable to connect with Aleyda at this time. This worker left a voicemail requesting return phone call from Aleyda. CHRISSY Velázquez Trench Digger Helper [facility] documented in this encounter Plan of Treatment Upcoming Encounters Date Type Specialty Care Team Description 10/04/2022 [facility] [place] [address] 10/13/2022 Office Visit [facility] Medicine [facility]-C [address] [facility] [address] 10/14/2022 Scheduled Telephone [facility] Kamini Newsome [address] [facility] [place] [address] 10/17/2022 Scheduled Telephone [facility] Kamini Newsome [address] [facility] [place] [address] 10/26/2022 Pharmacy Pharmacy Pharmacist1, [facility] [address] [place] [address] 12/06/2022 Office Visit Gastroenterology Lyssa Stout CRNP 132 [facility] [place] [address] 12/08/2022 Office Visit Hematology Oncology Tono Sanchez MD [address] [place] [address] 02/10/2023 Office Visit Sleep Disorders Love Francisco DO 132 [facility] [place] [address] 03/01/2023 PulmDiagnostic Pulmonary Function West, Pft 132 [facility] [place] [address] Scheduled Procedures Name Priority Associated Diagnoses Date/Ti [...] this encounter Medical Devices Implanted Type Area Roustabout Device Identifier Shelf Expiration Date Model / Serial / Lot Microtech Sure Clip Implanted:Qty: 2 on 06/03/2020 by Janis Hatch DO at OR [facility] Clip N/A: Colon 04/21/2022 [facility]-F-26-2 35-C-R / / [id number] documented as of this encounter Additional Health Concerns Infection Onset Date Last Indicated Resolved Time MRSA 09/17/2022 09/17/2022 documented as of this encounter Advance Directives Documents on File Type Date Recorded Patient Data Warehouse Administrator Expl anation Advance Directives and Living Will 04/29/2021 ADVANCE DIRECTIVE / LIVING WILL LIVING WILL AND HEALTH CARE POA Power of Mechanical Maintenance 04/29/2021 POWER OF A [facility] [...] the patient have Health Care Power of Mechanical Maintenance? No Code Status History Code Status Date Activated Date Inactivated Comments Full Code 12/27/2021 2:50 PM 12/27/2021 8:02 PM This order reflects the patients wishes and were consensually agreed upon. Question Answer Comments Discussion of Advance Directives occurred with: Not Discussed Does the patient have a Living Will? No Does the patient have Health Care Power of Mechanical Maintenance? No Full Code 03/31/2021 8:57 PM 04/03/2021 [...] File Name Relationship [facility] Syed Bustos Spouse Emergency Contact Care Teams Kiln Furniture Caster Relationship Specialty Start Date End Date Vanita Dunn MD [address] [place], [place] [id number] PCP - General Family Medicine 03/16/21 documented as of this encounter
--- OUTSIDE RECORDS SUMMARY | 2023-05-10 17:32 | External Medical Summary | Summary of Care ---
Author Name Unknown Organization [facility] Address [place] [address] Care Team Providers Care Risk Consulting Treasury Director Name Role Phone Vanita Dunn MD Primary Care Provid er Reason for Visit * Reason Onset Date Comments [facility]: Maintenance 09/05/2022 Encounter Details Date Type Department Care Team Description 09/05/2022 Scheduled Telephone [facility], [facility] [address] [facility] [place] [address] [facility], Nurse [facility] [address] [facility] [place] [address] Allergies Active Allergy Reactions Severity Noted Date Comments Adhesive Tape Itching 04/29/2020 Penicillins Rash 02/12/2008 Penicillin G 07/20/2018 Perflutren Protein A Microsph 2019 Definity-lower back pain documented as of this encounter (statuses as of 09/28/2022) Medications Medication Sig Dispensed Refills Start Date End Date Status nystatin (NYSTOP) 884703 UNIT/GM powder Apply topically to affected area 3 times a day. 60 g 1 0 Active Dexcom G6 Ratings Analyst Device Use as directed. To test blood sugars 4 times a day Dx E11.9 1 Each 0 1 Active Dexcom G6 Transmitter Use as directed. To test blood sugars 4 times a day. Change every 90 days. Dx E11.9 1 Each 3 1 Active OneTouch Verio In Vitro Strip (Glucose Blood) TESTING once daily 100 Strip 3 1 Active OneTouch Delica Plus [id number] TESTING once daily 100 Each 3 1 [...] 3 2 Active Benzonatate 200 MG Oral CapsuleIndications :Bronchitis, complicated Take by mouth 1 Capsule as needed in the morning AND 1 Capsule as needed at noon AND 1 Capsule as needed in the evening for Cough. 30 Capsule 1 2 Active Levothyroxine Sodium 150 MCG Oral [...] 08/12/2022 Silver sulfADIAZINE 1 % External Cream (Silvadene)Indicat [...] 2 Active Gabapentin 300 MG Oral Capsule (Neurontin)Indicat [...] before supper 120 mL 3 2 Active Lantus SoloStar 100 UNIT/ML Subcutaneous Solution Pen-injectorIndica tions:Type 2 diabetes mellitus with hemoglobin A1c goal of less than 8.0% (HCC) Inject 50 Units under the skin every night at bedtime. 45 mL 3 2 Active Escitalopram Oxalate 20 MG Oral Tablet (Lexapro)Indicatio ns:Recurrent major depressive disorder, in partial remission (HCC) TAKE 1 TABLET BY MOUTH DAILY 90 Tablet 0 2 Active Fluticasone-Salmet jayme 250-50 MCG/ACT Inhalation Aerosol Powder Breath Activated Inhale 1 Puff by mouth in the morning and 1 Puff before bedtime. 0 Active Mupirocin 2 % External Ointment (Bactroban) [...] daily 1892 mL 3 2 023 Discontinued methylPREDNISolone 4 MG Oral Tablet [...] as of this encounter (statuses as of 09/28/2022) Active Problems Problem Noted Date Hypertensive heart [...] as of this encounter (statuses as of 09/28/2022) Resolved Problems Problem Noted Date Resolved Date [...] pain 01/24/2012 01/17/2017 Genetic Sleep Disorder Research Other*[id number] 05/13/2011 04/07/2016 Obstructive sleep apnea 01/18/2011 12/27/19 [...] as of this encounter (statuses as of 09/28/2022) Immunizations Name Administration Dates Next Due COVID-19 [...] Miscellaneous Notes * Telephone Encounter - THAD Hayes - 09/28/2022 3:08 PM EST Pt confirmed apt * Telephone Encounter - THAD Hayes - 09/27/2022 3:44 PM EST Scheduled 09/29 at 2:30pm with EMILIE Sawant to let pt know of apt and to call to confirm if thatworks for her. * Telephone Encounter - Tamara Bojorquez RN - 09/27/2022 1:58 PM EST Lynn, Please try to add her to Thursday if she can come. No exam most likely. Dr. Khan will be here. * Telephone Encounter - Tamara Bojorquez RN - 09/26/2022 8:[address] Khan- This pt was seen previously at [facility] in May 2022. She continues to have vaginal bleeding with the IUD but you noted that she was not a surgical candidate. Requires Svetlana lift for transfer, which we do not have. Should I schedule her to at least come in and discuss with you (you are at [facility] on )? * Telephone Encounter - THAD Hayes - 09/26/2022 8:21 AM EST Please see below, is this something we can accommodate in our office? * Telephone Encounter - July Poe RN - 09/05/2022 9:07 AM EST Telephone call to pt/ to f/u on abdominal pain Pt reports "better than I was last night" Denies any pain at this time. States bowels moved "quite a bit" last night Pt reports the pain she was having last night was unlike any pain she had before, states it was under her right "breast bone" has bp machine and checked pulse and bp and they were normal. thought possible gas pains Pain did subside after having bowel movements. Pt/ encouraged to call back in if pain comes back and they agree that they will. Pt reports that she continues to have vaginal bleeding at times and states her new cg thinks she needs a hysterectomy. Pt missed freight flagman appt last week d/t weather. Advised that she will need to further discuss this with freight flagman. Pt wishes to see freight flagman locally but needs svetlana lift to transfer out of w/c onto exam table. Will reach out to scheduling and see if this can be accommodated at [facility]. documented in this encounter Plan of Treatment Upcoming Encounters Date Type Specialty Care Team Description 09/28/2022 Office Visit Pulmonary Vivian Phillips CRNP [address] [place] [address] 09/29/2022 Office Visit Gynecology Obstetrics Concetta Khan MD [address] [place] [address] [place] [address] 10/04/2022 Home Visit [facility] July Poe RN [address] [place] [address] 10/13/2022 Office Visit Family Medicine Brianne Pal PA-C [address] [place] [address] 10/17/2022 Scheduled Telephone [facility]ome [address] [facility] [address] 10/26/2022 Pharmacy Pharmacy Pharmacist1, [facility] Sp [address] [place] [address] 12/06/2022 Office Visit Gastroenterology Lyssa Stout CRNP [address] [place] [address] 12/08/2022 Office Visit Hematology Oncology Tono Sanchez MD [address] [place] [address] 02/10/2023 Office Visit Sleep Disorders Love Francisco DO [address] [place] [address] 03/01/2023 PulmDiagnostic Pulmonary Function West, Pft [address] [facility] [place] [address] Scheduled Procedures Name Priority Associated Diagnoses Date/Ti [...] 08/30/2023 08/30/2022, 05/19/2022, 12/20/2021, Additional history exists Mammogram 09/09/2023 09/09/2021, 08/12, 09/02/2019, Additional history exists COLONOSCOPY-EVERY 5 YRS AGES [...] encounter Medical Devices Implanted Type Area Chief Green Officer Device Identifier Shelf Expiration Date Model / Serial / Lot Microtech Sure Clip Implanted:Qty: 2 on 06/03/2020 by Janis Hatch DO at OR [facility] Clip N/A: Colon 04/21/2022 [facility]-F-26-2 35-C-R / / [id number] documented as of this encounter Additional Health Concerns Infection Onset Date Last Indicated Resolved Time MRSA 09/17/2022 09/17/2022 documented as of this encounter Advance Directives Documents on File Type Date Recorded Patient Manager Diabetes Expl anation Advance Directives and Living Will 04/29/2021 ADVANCE DIRECTIVE / LIVING WILL LIVING WILL AND HEALTH CARE POA Power of Energy Efficient Site Manager 04/29/2021 POWER OF A [facility] [...] patient have Health Care Power of Energy Efficient Site Manager? No Code Status History Code Status Date Activated Date Inactivated Comments Full Code 12/27/2021 2:50 PM 12/27/2021 8:02 PM This order reflects the patients wishes and were consensually agreed upon. Question Answer Comments Discussion of Advance Directives occurred with: Not Discussed Does the patient have a Living Will? No Does the patient have Health Care Power of Energy Efficient Site Manager? No Full Code 03/31/2021 8:57 PM [...] Syed Bustos Spouse Emergency Contact Care Teams Risk Consulting Treasury Director Relationship Specialty Start Date End Date Vanita Dunn MD [address] [place] [address] PCP - General Family Medicine 03/16/21 documented as of this encounter
--- OUTSIDE RECORDS SUMMARY | 2023-05-10 17:32 | External Medical Summary | Summary of Care ---
Author Name Unknown Organization [place] [address] Care Team Providers Care Water Pollution Control Technician Name Role Phone Vanita Dunn MD Primary Care Provid er Reason for Visit * Reason Onset Date Comments No Show 09/28/2022 Encounter Details Date Type Department Care Team Description 09/28/2022 Telephone Hematology/Oncology Treatment, [address] [address] Tono Sanchez MD [address] [place] [address] No Show Allergies Active Allergy Reactions Severity Noted Date Comments Adhesive Tape Itching 04/29/2020 Penicillins Rash 02/12/2008 Penicillin G 07/20/2018 Perflutren Protein A Microsph 2019 Definity-lower back pain documented as of this encounter (statuses as of 09/29/2022) Medications Medication Sig Dispensed Refills Start Date End Date Status nystatin (NYSTOP) 377675 UNIT/GM powder Apply topically to affected area 3 times a day. 60 g 1 10/16/2019 Active Dexcom G6 Rate Quoting Operator Device Use as directed. To test blood sugars 4 times a day Dx E11.9 1 Each 0 09/14/2020 Active Dexcom G6 Transmitter Use as directed. To test blood sugars 4 times a day. Change every 90 days. Dx E11.9 1 Each 3 09/14/2020 Active OneTouch Verio In Vitro Strip (Glucose Blood) TESTING once daily 100 Strip 3 10/29/2020 Active OneTouch Delica Plus [id number] TESTING once daily 100 Each 3 10/29/2020 [...] less than 8.0% ([facility]) 35 Units at breakfast, 39 Units before lunch, 45 Units before supper 120 mL 3 07/28/2022 Active Lantus SoloStar 100 UNIT/ML Subcutaneous Solution Pen-injectorIndicati ons:Type 2 diabetes mellitus with hemoglobin A1c goal of less than 8.0% ([facility]) Inject 50 Units under the [...] TIMES DAILY 1200 mL 0 09/16/2022 Active Mupirocin 2 % External Ointment (Bactroban)Indicatio ns:Cellulitis of toe of right foot,Open toe wound, initial encounter Apply topically to affected area 2 times a day for 14 days. 22 g 0 09/17/2022 3 Active Hospital, Clinic, or Other Facility [...] as of this encounter (statuses as of 09/29/2022) Active Problems Problem Noted Date Hypertensive heart [...] as of this encounter (statuses as of 09/29/2022) Resolved Problems Problem Noted Date Resolved Date [...] pain 01/24/2012 01/17/2017 Genetic Sleep Disorder Research Other*[id number] 05/13/2011 04/07/2016 Obstructive sleep apnea 01/18/2011 12/27/19 [...] as of this encounter (statuses as of 09/29/2022) Immunizations Name Administration Dates Next Due COVID-19 [...] * Telephone Encounter - THAD Serna - 09/29/2022 9:41 AM EST Called and spoke to patients and he states that patient is admitted to the hospital. Once patient is discharged her stated that patient is trying to get into [facility]. He is aware to notify our office once patient is discharged. Nursing-FYI * Telephone Encounter - Francine Okeefe RN - 09/28/2022 2:00 PM EST Patient did not show up for venofer. Scheduling: please call patient and re-schedule. Thank you documented in this encounter Plan of Treatment Upcoming Encounters Date Type Specialty Care Team Description 09/29/2022 Office Visit Gynecology Obstetrics Concetta Khan MD [address] [place] [address] [place] [address] 10/04/2022 Home Visit [facility] July Poe, RN [address] [place] [address] 10/13/2022 Office Visit Family Medicine Brianne Pal PA-C [address] [place] [address] 10/17/2022 Scheduled Telephone [facility] Kamini Newsome [address] [facility] [place] [address] 10/26/2022 Pharmacy Pharmacy Pharmacist1, [facility] Sp [address] [place] [address] 12/06/2022 Office Visit Gastroenterology Lyssa Stout CRNP [address] [place] [address] 12/08/2022 Office Visit Hematology Oncology Tono Sanchez MD [address] [place] [address] 02/10/2023 Office Visit Sleep Disorders Love Francisco DO [address] [place] [address] 03/01/2023 PulmDiagnostic Pulmonary Function West, Pft [address] [place] [address] Scheduled Procedures Name Priority Associated Diagnoses Date/Ti [...] this encounter Medical Devices Implanted Type Area Occ Med Physician Device Identifier Shelf Expiration Date Model / Serial / Lot Microtech Sure Clip Implanted:Qty: 2 on 06/03/2020 by Janis Hatch DO at OR [facility] Clip N/A: Colon 04/21/2022 [facility]-F-26-2 35-C-R / / [id number] documented as of this encounter Additional Health Concerns Infection Onset Date Last Indicated Resolved Time MRSA 09/17/2022 09/17/2022 documented as of this encounter Advance Directives Documents on File Type Date Recorded Patient Animal Assistant Expl anation Advance Directives and Living Will 04/29/2021 ADVANCE DIRECTIVE / LIVING WILL LIVING WILL AND HEALTH CARE POA Power of Computer Engineering Technologist 04/29/2021 POWER OF A [facility] [...] the patient have Health Care Power of Computer Engineering Technologist? No Code Status History Code Status Date Activated Date Inactivated Comments Full Code 12/27/2021 2:50 PM 12/27/2021 8:02 PM This order reflects the patients wishes and were consensually agreed upon. Question Answer Comments Discussion of Advance Directives occurred with: Not Discussed Does the patient have a Living Will? No Does the patient have Health Care Power of Computer Engineering Technologist? No Full Code 03/31/2021 8:57 PM 04/03/2021 [...] Syed Bustos Spouse Emergency Contact Care Teams Water Pollution Control Technician Relationship Specialty Start Date End Date Vanita Dunn MD [address] [facility] [place] [id number] PCP - General Family Medicine 03/16/21 documented as of this encounter
--- OUTSIDE RECORDS SUMMARY | 2023-05-10 17:32 | External Medical Summary | Summary of Care ---
Author Name Unknown Organization [place] [address] Care Team Providers Care Engineer Sergeant Name Role Phone Vanita Dunn MD Primary Care Provid er Reason for Visit * Reason Comments Paper Cone Machine Operator Documentation Encounter Details Date Type Department Care Team Description 10/03/2022 Paper Cone Machine Operator [facility] [address] [place] [address] Preethi Rivera, HANDCREW FOREMAN [address] [place] [address] Allergies Active Allergy Reactions Severity Noted Date Comments Adhesive Tape Itching 04/29/2020 Penicillins Rash 02/12/2008 Penicillin G 07/20/2018 Perflutren Protein A Microsph 2019 Definity-lower back pain documented as of this encounter (statuses as of 10/03/2022) Medications Medication Sig Dispensed Refills Start Date End Date Status nystatin (NYSTOP) 877104 UNIT/GM powder Apply topically to affected area 3 times a day. 60 g 1 10/16/2019 Active Dexcom G6 Manager Food Beverage Device Use as directed. To test blood sugars 4 times a day Dx E11.9 1 Each 0 09/14/2020 Active Dexcom G6 Transmitter Use as directed. To test blood sugars 4 times a day. Change every 90 days. Dx E11.9 1 Each 3 09/14/2020 Active OneTouch Verio In Vitro Strip (Glucose Blood) TESTING once daily 100 Strip 3 10/29/2020 Active OneTouch Delica Plus [id number] TESTING once daily 100 Each 3 10/29/2020 [...] less than 8.0% ([facility]) Inject 50 Units under the [...] pain 01/24/2012 01/17/2017 Genetic Sleep Disorder Research Other*[id number] 05/13/2011 04/07/2016 Obstructive sleep apnea 01/18/2011 12/27/19 [...] Progress Notes * CHRISSY Velázquez - 10/03/2022 10:46 AM EST This worker reached out to [facility] to follow up in regards to short term placement. This worker called pt at [phone]. Unable to contact at this time. This worker left a voicemail requesting a return phone call to [facility]. This worker attempted to contact [facility] at [phone]. Voicemail has not been set up yet. Unable to connect with pt at this time. Will try again later this afternoon. CHRISSY Velázquez Beck Tender [facility] documented in this encounter Plan of Treatment Upcoming Encounters Date Type Specialty Care Team Description 10/04/2022 Home Visit [facility] July Poe, RN 132 [facility] [place] [address] 10/13/2022 Office Visit Family Medicine Brianne Pal PARominaC [address] [facility] [place] [address] 10/14/2022 Scheduled Telephone [facility] Kamini Newsome [address] [place] [address] 10/17/2022 Scheduled Telephone [facility] Kamini Newsome [address] [place] [address] 10/26/2022 Pharmacy Pharmacy Pharmacist1, [facility] Sp [address] [facility] [place] [address] 12/06/2022 Office Visit Gastroenterology Lyssa Stout CRNP [address] [facility] [address] 12/08/2022 Office Visit Hematology Oncology Tono Sanchez MD 200 [facility] [place] [address] 02/10/2023 Office Visit Sleep Disorders Love Francisco, 132 [facility] [place] [address] 03/01/2023 PulmDiagnostic Pulmonary Function West, Pft [address] [facility] [place] [address] Scheduled Procedures Name Priority Associated Diagnoses Date/Ti [...] this encounter Medical Devices Implanted Type Area Rat Trapper Device Identifier Shelf Expiration Date Model / Serial / Lot Microtech Sure Clip Implanted:Qty: 2 on 06/03/2020 by Janis Hatch DO at OR [facility] Clip N/A: Colon 04/21/2022 [facility]-F-26-2 35-C-R / / [id number] documented as of this encounter Additional Health Concerns Infection Onset Date Last Indicated Resolved Time MRSA 09/17/2022 09/17/2022 documented as of this encounter Advance Directives Documents on File Type Date Recorded Patient Coverage Specialist Expl anation Advance Directives and Living Will 04/29/2021 ADVANCE DIRECTIVE / LIVING WILL LIVING WILL AND HEALTH CARE POA Power of Rd Lab Technician 04/29/2021 POWER OF A [facility] [...] the patient have Health Care Power of Rd Lab Technician? No Code Status History Code Status Date Activated Date Inactivated Comments Full Code 12/27/2021 2:50 PM 12/27/2021 8:02 PM This order reflects the patients wishes and were consensually agreed upon. Question Answer Comments Discussion of Advance Directives occurred with: Not Discussed Does the patient have a Living Will? No Does the patient have Health Care Power of Rd Lab Technician? No Full Code 03/31/2021 8:57 PM [...] Agents on File Name Relationship Healthcare Agent [facility] p Communication Syed Bustos Spouse Emergency Contact Care Teams Engineer Sergeant Relationship Specialty Start Date End Date Vanita Dunn MD [address] [place] [id number] PCP - General Family Medicine 03/16/21 documented as of this encounter
--- OUTSIDE RECORDS SUMMARY | 2023-05-10 17:33 | External Medical Summary | Summary of Care ---
Author Name Unknown Organization [place] [address] Care Team Providers Care Stock Controller Name Role Phone Vanita Dunn MD Primary Care Provid er Reason for Visit * Reason Onset Date Comments No Show 09/28/2022 Encounter Details Date Type Department Care Team Description 09/28/2022 Telephone Hematology/Oncology Treatment, [address] [address] Tono Sanchez MD [address] [place] [address] No Show Allergies Active Allergy Reactions Severity Noted Date Comments Adhesive Tape Itching 04/29/2020 Penicillins Rash 02/12/2008 Penicillin G 07/20/2018 Perflutren Protein A Microsph 2019 Definity-lower back pain documented as of this encounter (statuses as of 09/28/2022) Medications Medication Sig Dispensed Refills Start Date End Date Status nystatin (NYSTOP) 213439 UNIT/GM powder Apply topically to affected area 3 times a day. 60 g 1 10/16/2019 Active Dexcom G6 Physician Underwriter Device Use as directed. To test blood sugars 4 times a day Dx E11.9 1 Each 0 09/14/2020 Active Dexcom G6 Transmitter Use as directed. To test blood sugars 4 times a day. Change every 90 days. Dx E11.9 1 Each 3 09/14/2020 Active OneTouch Verio In Vitro Strip (Glucose Blood) TESTING once daily 100 Strip 3 10/29/2020 Active OneTouch Delica Plus [id number] TESTING once daily 100 Each 3 10/29/2020 [...] hemoglobin A1c goal of less than 8.0% ([facility]) 35 Units at breakfast, 39 Units before lunch, 45 Units before supper 120 mL 3 07/28/2022 Active Lantus SoloStar 100 UNIT/ML Subcutaneous Solution Pen-injectorIndicati ons:Type 2 diabetes mellitus with hemoglobin A1c goal of less than 8.0% ([facility]) Inject 50 Units under the [...] pain 01/24/2012 01/17/2017 Genetic Sleep Disorder Research Other*[id number] 05/13/2011 04/07/2016 Obstructive sleep apnea 01/18/2011 12/27/19 [...] Pulmonary Vivian Phillips CRNP [address] [place] [address] 09/29/2022 Office Visit Gynecology Obstetrics Concetta Khan MD [address] [place] [address] [place] [address] 10/04/2022 Home Visit [facility] July Poe RN [address] [place] [address] 10/13/2022 Office Visit Family Medicine Brianne Pal PA-C [address] [place] [address] 10/17/2022 Scheduled Telephone [facility] Kamini Newsome [address] [facility] [place] [address] 12/06/2022 Office Visit [facility]ology [facility] [place] [address] 12/08/2022 Office Visit Hematology Oncology Tono Sanchez MD 200 [place] [address] 02/10/2023 Office Visit Sleep Disorders Love Francisco, 132 [facility] [place] [address] 03/01/2023 PulmDiagnostic Pulmonary Function [place], Pft [address] [place] [address] Scheduled Procedures Name Priority Associated Diagnoses Date/Ti [...] this encounter Medical Devices Implanted Type Area Concrete Pipe Making Machine Operator Device Identifier Shelf Expiration Date Model / Serial / Lot Microtech Sure Clip Implanted:Qty: 2 on 06/03/2020 by Janis Hatch DO at OR [facility] Clip N/A: Colon 04/21/2022 [facility]-F-26-2 35-C-R / / [id number] documented as of this encounter Additional Health Concerns Infection Onset Date Last Indicated Resolved Time MRSA 09/17/2022 09/17/2022 documented as of this encounter Advance Directives Documents on File Type Date Recorded Patient Stone Polisher Expl anation Advance Directives and Living Will 04/29/2021 ADVANCE DIRECTIVE / LIVING WILL LIVING WILL AND HEALTH CARE POA Power of Pulp Roller 04/29/2021 [facility]OWER [facility] [...] the patient have Health Care Power of Pulp Roller? No Code Status History Code Status Date Activated Date Inactivated Comments Full Code 12/27/2021 2:50 PM 12/27/2021 8:02 PM This order reflects the patients wishes and were consensually agreed upon. Question Answer Comments Discussion of Advance Directives occurred with: Not Discussed Does the patient have a Living Will? No Does the patient have Health Care Power of Pulp Roller? No Full Code 03/31/2021 8:57 PM 04/03/2021 [...] Syed Bustos Spouse Emergency Contact Care Teams Stock Controller Relationship Specialty Start Date End Date Mona, Vanita Carissa Chipe, MD [address] [place] [phone] PCP - General Family Medicine 03/16/21 documented as of this encounter
--- OUTSIDE RECORDS SUMMARY | 2023-05-10 17:33 | External Medical Summary | Summary of Care ---
Author Name Unknown Organization [place] [address] Care Team Providers Care Printer Floor Covering Assistant Name Role Phone Vanita Dunn MD Primary Care Provid er Encounter Details Date Type Department Care Team Description 06/14/2022 Orders Only Hematology/Oncology [facility] [address] [place] [address] Chaparrita Cifuentes MD [address] [place] [address] 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 documented as of this encounter (statuses as of 09/28/2022) Medications Medication Sig Dispensed Refills Start Date End Date Status nystatin (NYSTOP) 517966 UNIT/GM powder Apply topically to affected area 3 times a day. 60 g 1 0 Active Dexcom G6 Assisted Living Director Device Use as directed. To test blood sugars 4 times a day Dx E11.9 1 Each 0 1 Active Dexcom G6 Transmitter Use as directed. To test blood sugars 4 times a day. Change every 90 days. Dx E11.9 1 Each 3 1 Active OneTouch Verio In Vitro Strip (Glucose Blood) TESTING once daily 100 Strip 3 1 Active OneTouch Delica Plus [id number] TESTING once daily 100 Each 3 1 [...] 7.0% ([facility]) inject 4.5mg (1 pen) under the skin [...] than 8.0% ([facility]) 35 Units at breakfast, 39 Units before lunch, 45 Units before supper 120 mL 3 2 07/28/20 22 Discontinued(Ref ill) Lantus SoloStar 100 UNIT/ML Subcutaneous Solution Pen-injectorIndica [...] Apply to wound 85 g 11 2 07/05/20 22 Discontinued(Ref ill) Gabapentin 300 MG Oral Capsule (Neurontin)Indicat ions:DM type 2 with diabetic peripheral neuropathy (HCC),Diabetic foot (HCC) take 1 capsule by mouth every morning, 1 capsule midday and 2 capsules in the evening. may take an extra dose in the morning and midday if needed for pain. max daily amount:6 capsules 360 Capsule 0 2 07/29/20 22 Discontinued Hospital, Clinic, or Other Facility Administered [...] pain 01/24/2012 01/17/2017 Genetic Sleep Disorder Research Other*[id number] 05/13/2011 04/07/2016 Obstructive sleep apnea 01/18/2011 12/27/19 [...] Date Type Specialty Care Team Description 09/28/2022 Hem/Onc Treatment Hematology Oncology [place], Chair 1 Hem Onc Scenery [facility] [address] 09/28/2022 Office Visit Pharmacy Pharmacist1, [facility] [address] [facility] [address] 09/28/2022 Office Visit Pulmonary Vivian Phillips CRNP [address] [place] [address] 09/29/2022 Office Visit Gynecology Obstetrics Concetta Khan MD [address] [place] [address] [place] [address] 10/04/2022 Home Visit [facility] July Poe, RN [address] [place] [address] 10/13/2022 Office Visit Family Medicine Brianne Pal PA-C [address] [facility] [place] [address] 10/17/2022 Scheduled Telephone [facility] Kamini Newsome [address] [facility] [place] [address] 12/06/2022 Office [facility] [place] [address] 12/08/2022 Office Visit Hematology Oncology Tono Sanchez MD 200 [place] [address] 02/10/2023 Office Visit [facility] Love [place] [place] [address] 03/01/2023 PulmDiagnostic Pulmonary Function West, Pft [address] [place] [address] Scheduled Procedures Name Priority Associated Diagnoses Date/Ti [...] this encounter Medical Devices Implanted Type Area Installment Loan Collector Device Identifier Shelf Expiration Date Model / Serial / Lot Microtech Sure Clip Implanted:Qty: 2 on 06/03/2020 by Janis Hatch DO at OR [facility] Clip N/A: Colon 04/21/2022 [facility]-F-26-2 35-C-R / / [id number] documented as of this encounter Advance Directives Documents on File Type Date Recorded Patient Fitter Placer Expl anation Advance Directives and Living Will 04/29/2021 ADVANCE DIRECTIVE / LIVING WILL LIVING WILL AND HEALTH CARE POA Power of Senior Embedded Software Engineer 04/29/2021 POWER [facility] A [facility] [...] patient have Health Care Power of Senior Embedded Software Engineer? No Code Status History Code Status Date Activated Date Inactivated Comments Full Code 12/27/2021 2:50 PM 12/27/2021 8:02 PM This order reflects the patients wishes and were consensually agreed upon. Question Answer Comments Discussion of Advance Directives occurred with: Not Discussed Does the patient have a Living Will? No Does the patient have Health Care Power of Senior Embedded Software Engineer? No Full Code 03/31/2021 8:57 PM [...] Syed Bustos Spouse Emergency Contact Care Teams Printer Floor Covering Assistant Relationship Specialty Start Date End Date Vanita Dunn MD [address] [place] [address] PCP - General Family Medicine 03/16/21 documented as of this encounter
--- OUTSIDE RECORDS SUMMARY | 2023-05-10 17:33 | External Medical Summary | Summary of Care ---
Author Name Unknown Organization [place] [address] Care Team Providers Care Event Sales Assistant Name Role Phone Vanita Dunn MD Primary Care Provid er Reason for Visit * Reason Onset Date Comments No Show 09/28/2022 Encounter Details Date Type Department Care Team Description 09/28/2022 Telephone Hematology/Oncology Treatment, [address] [address] Tono Sanchez MD [address] [place] [address] No Show Allergies Active Allergy Reactions Severity Noted Date Comments Adhesive Tape Itching 04/29/2020 Penicillins Rash 02/12/2008 Penicillin G 07/20/2018 Perflutren Protein A Microsph 2019 Definity-lower back pain documented as of this encounter (statuses as of 09/28/2022) Medications Medication Sig Dispensed Refills Start Date End Date Status nystatin (NYSTOP) 734810 UNIT/GM powder Apply topically to affected area 3 times a day. 60 g 1 10/16/2019 Active Dexcom G6 Fishing Vessel Mate Device Use as directed. To test blood sugars 4 times a day Dx E11.9 1 Each 0 09/14/2020 Active Dexcom G6 Transmitter Use as directed. To test blood sugars 4 times a day. Change every 90 days. Dx E11.9 1 Each 3 09/14/2020 Active OneTouch Verio In Vitro Strip (Glucose Blood) TESTING once daily 100 Strip 3 10/29/2020 Active OneTouch Delica Plus [id number] TESTING once daily 100 Each 3 10/29/2020 [...] than 8.0% ([facility]) Inject 50 Units under the [...] nursing home plan is made -continue lexapro Impaired [...] pain 01/24/2012 01/17/2017 Genetic Sleep Disorder Research Other*[id number] 05/13/2011 04/07/2016 Obstructive sleep apnea 01/18/2011 12/27/19 [...] Pulmonary Vivian Phillips CRNP [address] [place] [address] 09/29/2022 Office Visit Gynecology Obstetrics Concetta Khan MD [address] [place] [address] [place] [address] 10/04/2022 Home Visit [facility] July Poe RN [address] [place] [address] 10/13/2022 Office Visit Family Medicine Brianne Pal PA-C [address] [place] [address] 10/17/2022 Scheduled Telephone [facility] Kamini Newsome [address] [facility] [place] [address] 12/06/2022 Office Visit [facility]ology [facility] [place] [address] 12/08/2022 Office Visit Hematology Oncology Tono Sanchez MD 200 [place] [address] 02/10/2023 Office Visit Sleep Disorders Love Francisco, 132 [facility] [place] [address] 03/01/2023 PulmDiagnostic Pulmonary Function West, Pft [address] [place] [address] Scheduled Procedures Name Priority Associated Diagnoses Date/Ti [...] this encounter Medical Devices Implanted Type Area Application Coordinator Device Identifier Shelf Expiration Date Model / Serial / Lot Microtech Sure Clip Implanted:Qty: 2 on 06/03/2020 by Janis Hatch DO at OR [facility] Clip N/A: Colon 04/21/2022 [facility]-F-26-2 35-C-R / / [id number] documented as of this encounter Additional Health Concerns Infection Onset Date Last Indicated Resolved Time MRSA 09/17/2022 09/17/2022 documented as of this encounter Advance Directives Documents on File Type Date Recorded Patient Data Warehousing Architect Expl anation Advance Directives and Living Will 04/29/2021 ADVANCE DIRECTIVE / LIVING WILL LIVING WILL AND HEALTH CARE POA Power of Video Tape Editor 04/29/2021 POWER [facility] A [facility] [...] the patient have Health Care Power of Video Tape Editor? No Code Status History Code Status Date Activated Date Inactivated Comments Full Code 12/27/2021 2:50 PM 12/27/2021 8:02 PM This order reflects the patients wishes and were consensually agreed upon. Question Answer Comments Discussion of Advance Directives occurred with: Not Discussed Does the patient have a Living Will? No Does the patient have Health Care Power of Video Tape Editor? No Full Code 03/31/2021 8:57 PM 04/03/2021 [...] Syed Bustos Spouse Emergency Contact Care Teams Event Sales Assistant Relationship Specialty Start Date End Date Mona, Vanita [place] Chipe, MD [address] [place] [phone] PCP - General Family Medicine 03/16/21 documented as of this encounter
--- OUTSIDE RECORDS SUMMARY | 2023-05-10 17:34 | External Medical Summary | Summary of Care ---
Author Name Unknown Organization [facility] [place] [address] Care Team Providers Care Sweep Press Operator Name Role Phone Vanita Dunn MD Primary Care Provid er Reason for Visit * Reason Onset Date Comments [facility]: Maintenance 09/05/2022 Encounter Details Date Type Department Care Team Description 09/05/2022 Scheduled Telephone [facility], [facility] [address] [facility] [place] [address] [facility], Nurse [facility] [address] [facility] [place] [address] Allergies Active Allergy Reactions Severity Noted Date Comments Adhesive Tape Itching 04/29/2020 Penicillins Rash 02/12/2008 Penicillin G 07/20/2018 Perflutren Protein A Microsph 2019 Definity-lower back pain documented as of this encounter (statuses as of 09/27/2022) Medications Medication Sig Dispensed Refills Start Date End Date Status nystatin (NYSTOP) 120800 UNIT/GM powder Apply topically to affected area 3 times a day. 60 g 1 0 Active Dexcom G6 Spray Dyer Device Use as directed. To test blood sugars 4 times a day Dx E11.9 1 Each 0 1 Active Dexcom G6 Transmitter Use as directed. To test blood sugars 4 times a day. Change every 90 days. Dx E11.9 1 Each 3 1 Active OneTouch Verio In Vitro Strip (Glucose Blood) TESTING once daily 100 Strip 3 1 Active OneTouch Delica Plus [id number] TESTING once daily 100 Each 3 1 [...] as of this encounter (statuses as of 09/27/2022) Active Problems Problem Noted Date Hypertensive heart [...] current situation. 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 if a half-way plan is made -continue lexapro Impaired mobility [...] as of this encounter (statuses as of 09/27/2022) Resolved Problems Problem Noted Date Resolved Date [...] pain 01/24/2012 01/17/2017 Genetic Sleep Disorder Research Other*[id number] 05/13/2011 04/07/2016 Obstructive sleep apnea 01/18/2011 12/27/19 [...] as of this encounter (statuses as of 09/27/2022) Immunizations Name Administration Dates Next Due COVID-19 [...] Miscellaneous Notes * Telephone Encounter - Tamara Bojorquez RN - 09/27/2022 1:58 PM EST Lynn, Please try to add her to if she can come. No exam most likely. Dr. Khan will be here. * Telephone Encounter - Tamara Bojorquez RN - 09/26/2022 8:[address] Khan- This pt was seen previously at [facility] in May 2022. She continues to have vaginal bleeding with the IUD but you noted that she was not a surgical candidate. Requires Svetlana lift for transfer, which we do not have. Should I schedule her to at least come in and discuss with you (you are at [facility] on )? * Telephone Encounter - [...] thinks she needs a hysterectomy. Pt missed erp developer appt last week d/t weather. Advised that she will need to further discuss this with erp developer. Pt wishes to see erp developer locally but needs svetlana lift to transfer out of w/c onto exam table. Will reach out to scheduling and see if this can be accommodated at [facility]. documented in this encounter Plan of Treatment Upcoming Encounters Date Type Specialty Care Team Description 09/28/2022 Hem/Onc Treatment Hematology Oncology Maryellen, Chair 1 Hem Onc Scenery [address] [place] [address] 09/28/2022 Office Visit Pharmacy Pharmacist1, [facility] [address] [place] [address] 09/28/2022 Office Visit Pulmonary Vivian Phillips CRNP 132 [facility] [place] [address] 10/04/2022 Home Visit [facility] July Poe, RN [address] [place] [address] 10/13/2022 Office Visit Family Medicine Brianne Pal PA-C [address] [place] [address] 10/17/2022 Scheduled Telephone [facility] Kamini Newsome [address] [facility] [place] [address] 12/06/2022 Office Visit Gastroenterology Lyssa Stout CRNP [address] [place] [address] 12/08/2022 Office Visit Hematology Oncology Tono Sanchez MD 200 [place] [address] 02/10/2023 Office Visit Sleep Disorders Love Francisco DO [address] [place] [address] 03/01/2023 PulmDiagnostic Pulmonary Function [place], Pft [address] [place] [address] Scheduled Procedures Name Priority Associated Diagnoses Date/Ti [...] this encounter Medical Devices Implanted Type Area Synthetic Plasterer Device Identifier Shelf Expiration Date Model / Serial / Lot Microtech Sure Clip Implanted:Qty: 2 on 06/03/2020 by Janis Hatch DO at OR [facility] Clip N/A: Colon 04/21/2022 [facility]-F-26-2 35-C-R / / [id number] documented as of this encounter Additional Health Concerns Infection Onset Date Last Indicated Resolved Time MRSA 09/17/2022 09/17/2022 documented as of this encounter Advance Directives Documents on File Type Date Recorded Patient End User Consultant Expl anation Advance Directives and Living Will 04/29/2021 ADVANCE DIRECTIVE / LIVING WILL LIVING WILL AND HEALTH CARE POA Power of Hydro Generation Supervisor 04/29/2021 POWER OF A [facility] [...] the patient have Health Care Power of Hydro Generation Supervisor? No Code Status History Code Status Date Activated Date Inactivated Comments Full Code 12/27/2021 2:50 PM 12/27/2021 8:02 PM This order reflects the patients wishes and were consensually agreed upon. Question Answer Comments Discussion of Advance Directives occurred with: Not Discussed Does the patient have a Living Will? No Does the patient have Health Care Power of Hydro Generation Supervisor? No Full Code 03/31/2021 8:57 PM [...] Agents on File Name Relationship Healthcare Agent [facility] Syed Bustos Spouse Emergency Contact Care Teams Sweep Press Operator Relationship Specialty Start Date End Date Vanita Dunn MD [address] [place], [place] [phone] PCP - General Family Medicine 03/16/21 documented as of this encounter
--- OUTSIDE RECORDS SUMMARY | 2023-05-10 17:34 | External Medical Summary | Summary of Care ---
Author Name Unknown Organization [facility] Address [place] [address] Care Team Providers Care Cardiac Exercise Specialist Name Role Phone Vanita Dunn MD Primary Care Provid er Reason for Visit * Reason Onset Date Comments [facility]: Maintenance 09/05/2022 Encounter Details Date Type Department Care Team Description 09/05/2022 Scheduled Telephone [facility], [facility] 132 [facility] [place] [address] [facility], Nurse [facility] [place] [address] [facility] [place] [address] Allergies Active Allergy Reactions Severity Noted Date Comments Adhesive Tape Itching 04/29/2020 Penicillins Rash 02/12/2008 Penicillin G 07/20/2018 Perflutren Protein A Microsph 2019 Definity-lower back pain documented as of this encounter (statuses as of 09/27/2022) Medications Medication Sig Dispensed Refills Start Date End Date Status nystatin (NYSTOP) 089701 UNIT/GM powder Apply topically to affected area 3 times a day. 60 g 1 0 Active Dexcom G6 Bundle Tier Device Use as directed. To test blood sugars 4 times a day Dx E11.9 1 Each 0 1 Active Dexcom G6 Transmitter Use as directed. To test blood sugars 4 times a day. Change every 90 days. Dx E11.9 1 Each 3 1 Active OneTouch Verio In Vitro Strip (Glucose Blood) TESTING once daily 100 Strip 3 1 Active OneTouch Delica Plus [id number] TESTING once daily 100 Each 3 1 [...] pain 01/24/2012 01/17/2017 Genetic Sleep Disorder Research Other*[id number] 05/13/2011 04/07/2016 Obstructive sleep apnea 01/18/2011 12/27/19 [...] be here. * Telephone Encounter - Tamara Boojrquez RN - 09/26/2022 8:[address] Khan- This pt was seen previously at [facility] in May 2022. She continues to have vaginal bleeding with the IUD but you noted that she was not a surgical candidate. Requires Svetlana lift for transfer, which we do not have. Should I schedule her to at least come in and discuss with you (you are at [facility] on )? * Telephone Encounter - THAD [...] thinks she needs a hysterectomy. Pt missed stamp machine servicer appt last week d/t weather. Advised that she will need to further discuss this with stamp machine servicer. Pt wishes to see stamp machine servicer locally but needs svetlana lift to transfer out of w/c onto exam table. Will reach out to scheduling and see if this can be accommodated at [facility]. documented in this encounter Plan of Treatment Upcoming Encounters Date Type Specialty Care Team Description 09/28/2022 Hem/Onc Treatment Hematology Oncology [place], Chair 1 Hem Onc [address]enery [address] [place] [address] 09/28/2022 Office Visit Pharmacy Pharmacist1, [facility] [address] [facility], [place] [address] 09/28/2022 Office Visit Pulmonary Vivian Phillips CRNP 132 [facility] [place] [address] 09/29/2022 Office Visit Gynecology Obstetrics Concetta Khan MD [address] [facility] [place] [address] 10/04/2022 Home Visit [facility] July Poe RN 132 [facility] [place] [address] 10/13/2022 Office Visit Family Medicine Brianne Pal PA-C [address] [place] [address] 10/17/2022 Scheduled Telephone [facility]ome [address] [facility] [address] 12/06/2022 Office Visit Gastroenterology Lyssa Stout CRNP 132 [facility] [place] [address] 12/08/2022 Office Visit Hematology Oncology Tono Sanchez MD [address] [facility], [place] [address] 02/10/2023 Office Visit Sleep Disorders Love Francisco DO [address] [place] [address] 03/01/2023 PulmDiagnostic Pulmonary Function West, Pft 132 [facility] [place] [address] Scheduled Procedures Name Priority Associated Diagnoses Date/Ti [...] this encounter Medical Devices Implanted Type Area Transcription Coordinator Device Identifier Shelf Expiration Date Model / Serial / Lot Microtech Sure Clip Implanted:Qty: 2 on 06/03/2020 by Janis Hatch DO at OR [facility] Clip N/A: Colon [facility]21/20[facility]R / / [id number] documented as of this encounter Additional Health Concerns Infection Onset Date Last Indicated Resolved Time MRSA 09/17/2022 09/17/2022 documented as of this encounter Advance Directives Documents on File Type Date Recorded Patient Visitor Use Assistant Expl anation Advance Directives and Living [...] Syed Bustos Spouse Emergency Contact Care Teams Cardiac Exercise Specialist Relationship Specialty Start Date End Date Vanita Dunn MD [address] [place] [address] PCP - General Family Medicine 03/16/21 documented as of this encounter
--- OUTSIDE RECORDS SUMMARY | 2023-05-10 17:34 | External Medical Summary | Summary of Care ---
Author Name Unknown Organization [place] [address] Care Team Providers Care Last Pattern Grader Name Role Phone Vanita Dunn MD Primary Care Provid er Reason for Visit * Reason Onset Date Comments Fax 09/19/2022 [place] negro/Seymour Andrade Mobility - needs notes re: reason for needing the recliner chair Encounter Details Date Type Department Care Team Description 09/19/2022 Telephone [facility] [address] [place] [address] Vanita Dunn MD [address] [place] [address] Fax ([place] negro/Jesus Andrade Mobili... Allergies Active Allergy Reactions Severity Noted Date Comments Adhesive Tape Itching 04/29/2020 Penicillins Rash 02/12/2008 Penicillin G 07/20/2018 Perflutren Protein A Microsph 2019 Definity-lower back pain documented as of this encounter (statuses as of 09/27/2022) Medications Medication Sig Dispensed Refills Start Date End Date Status nystatin (NYSTOP) 163857 UNIT/GM powder Apply topically to affected area 3 times a day. 60 g 1 10/16/2019 Active Dexcom G6 Beef Grader Device Use as directed. To test blood sugars 4 times a day Dx E11.9 1 Each 0 09/14/2020 Active Dexcom G6 Transmitter Use as directed. To test blood sugars 4 times a day. Change every 90 days. Dx E11.9 1 Each 3 09/14/2020 Active OneTouch Verio In Vitro Strip (Glucose Blood) TESTING once daily 100 Strip 3 10/29/2020 Active OneTouch Delica Plus [id number] TESTING once daily 100 Each 3 10/29/2020 [...] Until gone.. 20 Capsule 0 09/17/2022 3 Active Mupirocin 2 % External Ointment (Bactroban)Indicatio [...] pain 01/24/2012 01/17/2017 Genetic Sleep Disorder Research Other*[id number] 05/13/2011 04/07/2016 Obstructive sleep apnea 01/18/2011 12/27/19 [...] Miscellaneous Notes * Telephone Encounter - THAD Stevens - 09/27/2022 3:07 PM EST Pt was admitted to [facility] and is planned for nursing care at [facility]. Please revisit recliner request with [...] why she needs the reclinier Fax number: [phone] Attention to Name/Company: [employer] Any additional information?: Call back# for Pam [phone] ext [phone] documented in this encounter Plan of Treatment Upcoming Encounters Date Type Specialty Care Team Description 09/28/2022 Hem/Onc Treatment Hematology Oncology [place], Chair 1 Hem Onc [facility] [address] [place] [address] 09/28/2022 Office Visit Pharmacy Pharmacist1, [facility] [address] [place] [address] 09/28/2022 Office Visit Pulmonary Vivian Phillips CRNP [address] [place] [address] 10/04/2022 Home Visit [facility] July Poe, RN [address] [place] [address] 10/13/2022 Office Visit Family Medicine Brianne Pal PA-C [address] [place] [address] 10/17/2022 Scheduled Telephone [facility] Kamini Newsome [address] [place] [address] 12/06/2022 Office Visit Gastroenterology Lyssa Stout CRNP [address] [place] [address] 12/08/2022 Office Visit Hematology Oncology Tono Sanchez MD 200 [facility] [place] [address] 02/10/2023 Office Visit Sleep Disorders Love Francisco, [address] [place] [address] 03/01/2023 PulmDiagnostic Pulmonary Function West, Pft [address] [place] [address] Scheduled Procedures Name Priority Associated Diagnoses Date/Ti [...] this encounter Medical Devices Implanted Type Area Commercial Carpet Installer Device Identifier Shelf Expiration Date Model / Serial / Lot Microtech Sure Clip Implanted:Qty: 2 on 06/03/2020 by Janis Hatch DO at OR [facility] Clip N/A: Colon 04/21/2022 [facility]-F-26-2 35-C-R / / [id number] documented as of this encounter Additional Health Concerns Infection Onset Date Last Indicated Resolved Time MRSA 09/17/2022 09/17/2022 documented as of this encounter Advance Directives Documents on File Type Date Recorded Patient Trashman Expl anation Advance Directives and Living Will 04/29/2021 ADVANCE DIRECTIVE / LIVING WILL LIVING WILL AND HEALTH CARE POA Power of Hand I Blocker 04/29/2021 POWER OF A [facility] [...] the patient have Health Care Power of Hand I Blocker? No Code Status History Code Status Date Activated Date Inactivated Comments Full Code 12/27/2021 2:50 PM 12/27/2021 8:02 PM This order reflects the patients wishes and were consensually agreed upon. Question Answer Comments Discussion of Advance Directives occurred with: Not Discussed Does the patient have a Living Will? No Does the patient have Health Care Power of Hand I Blocker? No Full Code 03/31/2021 8:57 PM [...] Syed Bustos Spouse Emergency Contact Care Teams Last Pattern Grader Relationship Specialty Start Date End Date Vanita Dunn MD [address] [place] [address] PCP - General Family Medicine 03/16/21 documented as of this encounter
--- OUTSIDE RECORDS SUMMARY | 2023-05-10 17:35 | External Medical Summary | Summary of Care ---
Author Name Unknown Organization [facility] Address [place] [address] Care Team Providers Care Fresh Foods Cake Decorator Name Role Phone Vanita Dunn MD Primary Care Provid er Reason for Visit * Reason Onset Date Comments [facility]: Maintenance 09/05/2022 Encounter Details Date Type Department Care Team Description 09/05/2022 Scheduled Telephone [facility], [facility] 132 [facility] [place] [address] [facility], Nurse [facility] 132 [facility] [place] [address] Allergies Active Allergy Reactions Severity Noted Date Comments Adhesive Tape Itching 04/29/2020 Penicillins Rash 02/12/2008 Penicillin G 07/20/2018 Perflutren Protein A Microsph 2019 Definity-lower back pain documented as of this encounter (statuses as of 09/27/2022) Medications Medication Sig Dispensed Refills Start Date End Date Status nystatin (NYSTOP) 908608 UNIT/GM powder Apply topically to affected area 3 times a day. 60 g 1 0 Active Dexcom G6 Carton Making Machinist Device Use as directed. To test blood sugars 4 times a day Dx E11.9 1 Each 0 1 Active Dexcom G6 Transmitter Use as directed. To test blood sugars 4 times a day. Change every 90 days. Dx E11.9 1 Each 3 1 Active OneTouch Verio In Vitro Strip (Glucose Blood) TESTING once daily 100 Strip 3 1 Active OneTouch Delica Plus [id number] TESTING once daily 100 Each 3 1 [...] pain 01/24/2012 01/17/2017 Genetic Sleep Disorder Research Other*[id number] 05/13/2011 04/07/2016 Obstructive sleep apnea 01/18/2011 12/27/19 [...] Khan- This pt was seen previously at [facility] in May 2022. She continues to have vaginal bleeding with the IUD but you noted that she was not a surgical candidate. Requires Svetlana lift for transfer, which we do not have. Should I schedule her to at least come in and discuss with you (you are at [facility] on )? * Telephone Encounter - THAD [...] thinks she needs a hysterectomy. Pt missed corporate financial analyst appt last week d/t weather. Advised that she will need to further discuss this with corporate financial analyst. Pt wishes to see corporate financial analyst locally but needs svetlana lift to transfer out of w/c onto exam table. Will reach out to scheduling and see if this can be accommodated at [facility]. documented in this encounter Plan of Treatment Upcoming Encounters Date Type Specialty Care Team Description 09/28/2022 Hem/Onc Treatment Hematology Oncology [place], Chair 1 Hem Onc Scenery [address] [place] [address] 09/28/2022 Office Visit Pharmacy Pharmacist1, [facility] [address] [place] [address] 09/28/2022 Office Visit Pulmonary Vivian Phillips CRNP 132 [facility] [place] [address] 10/04/2022 Home Visit [facility] July Poe, RN [address] [place] [address] 10/13/2022 Office Visit Family Medicine Brianne Pal PA-C [address] [place] [address] 10/17/2022 Scheduled Telephone [facility] Kamini Newsome [address] [facility] [place] [address] 12/06/2022 Office Visit Gastroenterology Lyssa Stout CRNP [address] [place] [address] 12/08/2022 Office Visit Hematology Oncology Tono Sanchez MD [address] [facility] [place] [address] 02/10/2023 Office Visit Sleep Disorders Love Francisco DO [address] [place] [address] 03/01/2023 PulmDiagnostic Pulmonary Function West, Pft [address] [place] [address] Scheduled Procedures Name Priority Associated Diagnoses Date/Ti [...] encounter Medical Devices Implanted Type Area Supervisor Fireworks Assembly Device Identifier Shelf Expiration Date Model / Serial / Lot Microtech Sure Clip Implanted:Qty: 2 on 06/03/2020 by Janis Hatch DO at OR [facility] Clip N/A: Colon 04/21/2022 [facility]-F-26-2 35-C-R / / [id number] documented as of this encounter Additional Health Concerns Infection Onset Date Last Indicated Resolved Time MRSA 09/17/2022 09/17/2022 documented as of this encounter Advance Directives Documents on File Type Date Recorded Patient Complaint Clerk Expl anation Advance Directives and Living Will 04/29/2021 ADVANCE DIRECTIVE / LIVING WILL LIVING WILL AND HEALTH CARE POA Power of Cloud Systems Architect 04/29/2021 POWER OF A [facility] [...] the patient have Health Care Power of Cloud Systems Architect? No Code Status History Code Status Date Activated Date Inactivated Comments Full Code 12/27/2021 2:50 PM 12/27/2021 8:02 PM This order reflects the patients wishes and were consensually agreed upon. Question Answer Comments Discussion of Advance Directives occurred with: Not Discussed Does the patient have a Living Will? No Does the patient have Health Care Power of Cloud Systems Architect? No Full Code 03/31/2021 8:57 PM 04/03/2021 [...] Healthcare [facility] Communication Syed Bustos Spouse Emergency Contact Care Teams Fresh Foods Cake Decorator Relationship Specialty Start Date End Date Vanita Dunn MD [address] [place], [place] [id number] PCP - General Family Medicine 03/16/21 documented as of this encounter
--- OUTSIDE RECORDS SUMMARY | 2023-05-10 17:36 | External Medical Summary | Summary of Care ---
Author Name Unknown Organization [place] [address] Care Team Providers Care Manager Hospital Name Role Phone Vanita Dunn MD Primary Care Provid er Reason for Visit * Reason Onset Date Comments Advice 09/20/2022 Encounter Details Date Type Department Care Team Description 09/20/[address] [facility] [address] [place] [address] Vanita Dunn MD [address] [place] [address] Advice Allergies Active Allergy Reactions Severity Noted Date Comments Adhesive Tape Itching 04/29/2020 Penicillins Rash 02/12/2008 Penicillin G 07/20/2018 Perflutren Protein A Microsph 2019 Definity-lower back pain documented as of this encounter (statuses as of 09/27/2022) Medications Medication Sig Dispensed Refills Start Date End Date Status nystatin (NYSTOP) 099921 UNIT/GM powder Apply topically to affected area 3 times a day. 60 g 1 10/16/2019 Active Dexcom G6 Copying Machine Mechanic Device Use as directed. To test blood sugars 4 times a day Dx E11.9 1 Each 0 09/14/2020 Active Dexcom G6 Transmitter Use as directed. To test blood sugars 4 times a day. Change every 90 days. Dx E11.9 1 Each 3 09/14/2020 Active OneTouch Verio In Vitro Strip (Glucose Blood) TESTING once daily 100 Strip 3 10/29/2020 Active OneTouch Delica Plus [id number] TESTING once daily 100 Each 3 10/29/2020 [...] hemoglobin A1c goal of less than 8.0% ([facility]) 35 Units at breakfast, 39 Units before lunch, 45 Units before supper 120 mL 3 07/28/2022 Active Lantus SoloStar 100 UNIT/ML Subcutaneous Solution Pen-injectorIndicati ons:Type 2 diabetes mellitus with hemoglobin A1c goal of less than 8.0% ([facility]) Inject 50 Units under the [...] a fci plan is made -continue lexapro Impaired mobility [...] pain 01/24/2012 01/17/2017 Genetic Sleep Disorder Research Other*[id number] 05/13/2011 04/07/2016 Obstructive sleep apnea 01/18/2011 12/27/19 [...] Telephone Encounter - Vanita Dunn MD - 09/27/2022 8:51 AM EST Pt admitted to SNF via hospital. No further action needed. * Telephone Encounter - Tamara Fabian LPN - 09/21/2022 9:41 AM EST Received paperwork, placed on Dr. Dunn's desk for review * Telephone Encounter - THAD Leyva - 09/20/2022 10:54 AM EST Patient called stating she needs paperwork signed by Dr Dunn for a SNF. Please advise documented in this encounter Plan of Treatment Upcoming Encounters Date Type Specialty Care Team Description 09/28/2022 Hem/Onc Treatment Hematology Oncology [place], Chair 1 Hem Onc [facility] [address] [facility] [address] 09/28/2022 Office Visit Pharmacy Pharmacist1, [facility] [address] [facility] [address] 09/28/2022 Office Visit Pulmonary Vivian Phillips CRNP [address] [place] [address] 10/04/2022 [facility] Visit [facility] July Poe RN [address] [place] [address] 10/13/2022 Office Visit Family Medicine Brianne Pal PA-C [address] [place] [address] 10/17/2022 Scheduled Telephone [facility]i [facility] [address] [facility] [place] [address] 12/06/2022 Office Visit Gastroenterology Lyssa Stout CRNP [address] [place] [address] 12/08/2022 Office Visit Hematology Oncology [facility] [address] 02/10/2023 Office Visit Sleep Disorders Love Francisco, [address] [place] [address] 03/01/2023 PulmDiagnostic Pulmonary Function [place], Pft [address] [place] [address] Scheduled Procedures Name Priority Associated Diagnoses Date/Ti [...] encounter Medical Devices Implanted Type Area Dog Breeder Device Identifier Shelf Expiration Date Model / Serial / Lot Microtech Sure Clip Implanted:Qty: 2 on 06/03/2020 by Janis Hatch DO at OR [facility] Clip N/A: Colon 04/21/2022 [facility]-F-26-2 35-C-R / / [id number] documented as of this encounter Additional Health Concerns Infection Onset Date Last Indicated Resolved Time MRSA 09/17/2022 09/17/2022 documented as of this encounter Advance Directives Documents on File Type Date Recorded Patient Special Effects Artist Expl anation Advance Directives and Living Will 04/29/2021 ADVANCE DIRECTIVE / LIVING WILL LIVING WILL AND HEALTH CARE POA Power of Lawyer Real Estate 04/29/2021 POWER OF A [facility] [...] the patient have Health Care Power of Lawyer Real Estate? No Code Status History Code Status Date Activated Date Inactivated Comments Full Code 12/27/2021 2:50 PM 12/27/2021 8:02 PM This order reflects the patients wishes and were consensually agreed upon. Question Answer Comments Discussion of Advance Directives occurred with: Not Discussed Does the patient have a Living Will? No Does the patient have Health Care Power of Lawyer Real Estate? No Full Code 03/31/2021 8:57 PM 04/03/2021 [...] Agents on File Name Relationship Healthcare Agent [facility] p Communication Syed Bustos Spouse Emergency Contact Care Teams Manager Hospital Relationship Specialty Start Date End Date Vanita Dunn MD [address] [place] [address] PCP - General Family Medicine 03/16/21 documented as of this encounter
--- OUTSIDE RECORDS SUMMARY | 2023-05-10 17:36 | External Medical Summary | Summary of Care ---
Author Name Unknown Organization [facility] [place] [address] Care Team Providers Care Audiovisual Tech Name Role Phone Vanita Dunn MD Primary Care Provid er Reason for Visit * Reason Onset Date Comments [facility]: Maintenance 09/21/2022 Encounter Details Date Type Department Care Team Description 09/21/2022 Telephone [facility] [address] [facility] [place] [address] Jerod Kamini [address] [place] [address] [facility]: Maintenance Allergies Active Allergy Reactions Severity Noted Date Comments Adhesive Tape Itching 04/29/2020 Penicillins Rash 02/12/2008 Penicillin G 07/20/2018 Perflutren Protein A Microsph 2019 Definity-lower back pain documented as of this encounter (statuses as of 09/27/2022) Medications Medication Sig Dispensed Refills Start Date End Date Status nystatin (NYSTOP) 793824 UNIT/GM powder Apply topically to affected area 3 times a day. 60 g 1 10/16/2019 Active Dexcom G6 Clutch Operator Device Use as directed. To test blood sugars 4 times a day Dx E11.9 1 Each 0 09/14/2020 Active Dexcom G6 Transmitter Use as directed. To test blood sugars 4 times a day. Change every 90 days. Dx E11.9 1 Each 3 09/14/2020 Active OneTouch Verio In Vitro Strip (Glucose Blood) TESTING once daily 100 Strip 3 10/29/2020 Active OneTouch Delica Plus [id number] TESTING once daily 100 Each 3 10/29/2020 [...] operations manager plan is made -continue lexapro Impaired [...] pain 01/24/2012 01/17/2017 Genetic Sleep Disorder Research Other*[id number] 05/13/2011 04/07/2016 Obstructive sleep apnea 01/18/2011 12/27/19 [...] Encounter - Vanita Dunn MD - 09/27/2022 8:14 AM EST See other encounter. Admitted from hospital. * Telephone Encounter - Kamini Newsome - 09/21/2022 12:04 PM EST Incoming email from Miley Floor Plan Adjuster at [facility]. Reads as follows: "I spoke with both Shaina and her Joel. I also spoke with someone in our business office. Iwas told that they best way financially for them is to have Shaina admitted here directly from the hospital. They are going to the ER this afternoon." Kamini Newsome Printed Circuit Boards Pinner [facility] [email or web address] documented in this encounter Plan of Treatment Upcoming Encounters Date Type Specialty Care Team Description 09/28/2022 Hem/Onc Treatment Hematology Oncology Maryellen, Chair 1 Hem Onc [facility] [address] 09/28/2022 Office Visit Pharmacy Pharmacist1, [facility] [address] [facility] [address] 09/28/2022 Office Visit Pulmonary Vivian Phillips CRNP [address] [place] [address] 10/04/2022 Home Visit [facility] July Poe RN [address] [place] [address] 10/13/2022 Office Visit Family Medicine Brianne Pal PA-C [address] [place] [address] 10/17/2022 Scheduled Telephone [facility] Kamini Newsome [address] [facility] [place] [address] 12/06/2022 Office Visit Gastroenterology Lyssa Stout CRNP [address] [place] [address] 12/08/2022 Office Visit Hematology Oncology Tono Sanchez MD [address] [facility] [address] 02/10/2023 Office Visit Sleep Disorders Love Francisco, DO [address] [place] [address] 03/01/2023 PulmDiagnostic Pulmonary Function West, Pft [address] [place] [address] Scheduled Procedures Name Priority Associated Diagnoses Date/Ti [...] this encounter Medical Devices Implanted Type Area School Secretary Device Identifier Shelf Expiration Date Model / Serial / Lot Microtech Sure Clip Implanted:Qty: 2 on 06/03/2020 by Janis Hatch DO at OR [facility] Clip N/A: Colon 04/21/2022 [facility]-F-26-2 35-C-R / / [id number] documented as of this encounter Additional Health Concerns Infection Onset Date Last Indicated Resolved Time MRSA 09/17/2022 09/17/2022 documented as of this encounter Advance Directives Documents on File Type Date Recorded Patient Ditch Digger Expl anation Advance Directives and Living Will 04/29/2021 ADVANCE DIRECTIVE / LIVING WILL LIVING WILL AND HEALTH CARE POA Power of Marine Propulsion Technician 04/29/2021 POWER OF A TTORNEY HEALTH [...] the patient have Health Care Power of Marine Propulsion Technician? No Code Status History Code Status Date Activated Date Inactivated Comments Full Code 12/27/2021 2:50 PM 12/27/2021 8:02 PM This order reflects the patients wishes and were consensually agreed upon. Question Answer Comments Discussion of Advance Directives occurred with: Not Discussed Does the patient have a Living Will? No Does the patient have Health Care Power of Marine Propulsion Technician? No Full Code 03/31/2021 8:57 PM [...] on File Name Relationship Healthcare Agent [facility] Communication Syed Bustos Spouse Emergency Contact Care Teams Audiovisual Tech Relationship Specialty Start Date End Date Vanita Dunn MD [address] [facility] [place] [id number] PCP - General Family Medicine 03/16/21 documented as of this encounter
--- OUTSIDE RECORDS SUMMARY | 2023-05-10 17:36 | External Medical Summary | Summary of Care ---
Author Name Unknown Organization [facility] Address [place] [address] Care Team Providers Care Rehabilitation Specialist Name Role Phone Vanita Dunn MD Primary Care Provid er Reason for Visit * Reason Onset Date Comments [facility]: Maintenance 09/19/2022 Encounter Details Date Type Department Care Team Description 09/19/2022 Telephone [facility] [address] [facility] [place] [address] Jerod Kamini [address] [place] [address] [facility]: Maintenance Allergies Active Allergy Reactions Severity Noted Date Comments Adhesive Tape Itching 04/29/2020 Penicillins Rash 02/12/2008 Penicillin G 07/20/2018 Perflutren Protein A Microsph 2019 Definity-lower back pain documented as of this encounter (statuses as of 09/27/2022) Medications Medication Sig Dispensed Refills Start Date End Date Status nystatin (NYSTOP) 530675 UNIT/GM powder Apply topically to affected area 3 times a day. 60 g 1 10/16/2019 Active Dexcom G6 Solid Waste Management Engineer Device Use as directed. To test blood sugars 4 times a day Dx E11.9 1 Each 0 09/14/2020 Active Dexcom G6 Transmitter Use as directed. To test blood sugars 4 times a day. Change every 90 days. Dx E11.9 1 Each 3 09/14/2020 Active OneTouch Verio In Vitro Strip (Glucose Blood) TESTING once daily 100 Strip 3 10/29/2020 Active OneTouch Delica Plus [id number] TESTING once daily 100 Each 3 10/29/2020 [...] and repeater plan is made -continue lexapro Impaired mobility [...] pain 01/24/2012 01/17/2017 Genetic Sleep Disorder Research Other*[id number] 05/13/2011 04/07/2016 Obstructive sleep apnea 01/18/2011 12/27/19 [...] Encounter - Vanita Dunn MD - 09/27/2022 8:50 AM EST Pt admitted from hospital. No further action needed. * Telephone Encounter - Kamini Newsome - 09/19/2022 3:55 PM EST Incoming call from Miley @ [employer] at [facility]. Patient looks fine for admission. Will need am MA51 and PASAR form filed out for admission. Earliest she would have a bed is on Monday. DiscussedMRSA diagnosis. Should not be an issue but will speak to DON tomorrow to make sure. Dr. Kim will fax over a copy of these forms. Can you please fill them out and fax to Miley Mcneill @ [facility] at [phone]. Thank you! aKmini Newsome Track Man [facility] [email or web address] documented in this encounter Plan of Treatment Upcoming Encounters Date Type Specialty Care Team Description 09/28/2022 Hem/Onc Treatment Hematology Oncology [place], Chair 1 Hem Onc [address] [place] [address] 09/28/2022 Office Visit Pharmacy Pharmacist1, [facility] [address] [place] [address] 09/28/2022 Office Visit Pulmonary Vivian Phillips CRNP [address] [place] [address] 10/04/2022 Home Visit [facility] July Poe RN [address] [place] [address] 10/13/2022 Office Visit Family Medicine Brianne Pal PA-C [address] [place] [address] 10/17/2022 Scheduled Telephone [facility] Kamini Newsome [address] [facility] [place] [address] 12/06/2022 Office Visit Gastroenterology Lyssa Stout CRNP [address] [place] [address] 12/08/2022 Office Visit Hematology Oncology Tono Sanchez MD 200 [place] [address] 02/10/2023 Office Visit Sleep Disorders Love Francisco, DO [address] [place] [address] 03/01/2023 PulmDiagnostic Pulmonary Function West, Pft [address] [place] [address] Scheduled Procedures Name Priority Associated Diagnoses Date/Ti [...] this encounter Medical Devices Implanted Type Area Transit Survey Worker Device Identifier Shelf Expiration Date Model / Serial / Lot Microtech Sure Clip Implanted:Qty: 2 on 06/03/2020 by Janis Hatch DO at OR [facility] Clip N/A: Colon 04/21/2022 [facility]-F-26-2 35-C-R / / [id number] documented as of this encounter Additional Health Concerns Infection Onset Date Last Indicated Resolved Time MRSA 09/17/2022 09/17/2022 documented as of this encounter Advance Directives Documents on File Type Date Recorded Patient City Attorney Expl anation Advance Directives and Living Will 04/29/2021 ADVANCE DIRECTIVE / LIVING WILL LIVING WILL AND HEALTH CARE POA Power of Plodder Operator 04/29/2021 POWER OF A TTORNEY HEALTH [...] the patient have Health Care Power of Plodder Operator? No Code Status History Code Status Date Activated Date Inactivated Comments Full Code 12/27/2021 2:50 PM 12/27/2021 8:02 PM This order reflects the patients wishes and were consensually agreed upon. Question Answer Comments Discussion of Advance Directives occurred with: Not Discussed Does the patient have a Living Will? No Does the patient have Health Care Power of Plodder Operator? No Full Code 03/31/2021 8:57 PM [...] File Name Relationship Healthcare Agent [facility] Syed Bustos Spouse Emergency Contact Care Teams Rehabilitation Specialist Relationship Specialty Start Date End Date Vanita Dunn MD [address] [place] [address] PCP - General Family Medicine 03/16/21 documented as of this encounter
--- OUTSIDE RECORDS SUMMARY | 2023-05-10 17:37 | External Medical Summary | Summary of Care ---
Author Name Unknown Organization [facility] Address [place] [address] Care Team Providers Care Building Maintenance Superintendent Name Role Phone Vanita Dunn MD Primary Care Provid er Reason for Visit * Reason Onset Date Comments [facility]: Maintenance 09/21/2022 Encounter Details Date Type Department Care Team Description 09/21/2022 Telephone [facility] [address] [facility] [place] [address] Jerod Kamini [address] [place] [address] [facility]: Maintenance Allergies Active Allergy Reactions Severity Noted Date Comments Adhesive Tape Itching 04/29/2020 Penicillins Rash 02/12/2008 Penicillin G 07/20/2018 Perflutren Protein A Microsph 2019 Definity-lower back pain documented as of this encounter (statuses as of 09/27/2022) Medications Medication Sig Dispensed Refills Start Date End Date Status nystatin (NYSTOP) 637942 UNIT/GM powder Apply topically to affected area 3 times a day. 60 g 1 10/16/2019 Active Dexcom G6 Mice Raiser Device Use as directed. To test blood sugars 4 times a day Dx E11.9 1 Each 0 09/14/2020 Active Dexcom G6 Transmitter Use as directed. To test blood sugars 4 times a day. Change every 90 days. Dx E11.9 1 Each 3 09/14/2020 Active OneTouch Verio In Vitro Strip (Glucose Blood) TESTING once daily 100 Strip 3 10/29/2020 Active OneTouch Delica Plus [id number] TESTING once daily 100 Each 3 10/29/2020 [...] terminal clerk plan is made -continue lexapro Impaired mobility [...] pain 01/24/2012 01/17/2017 Genetic Sleep Disorder Research Other*[id number] 05/13/2011 04/07/2016 Obstructive sleep apnea 01/18/2011 12/27/19 [...] 09/27/2022 8:14 AM EST See other encounter. Patient admitted via hospital. * Telephone Encounter - Kamini Newsome - 09/21/2022 10:10 AM EST Incoming call from patient. Looking for update on SNF placement. Explained that required paperwork was sent to PCP office. Awaiting to hear back from office that PASAR and MA51 form have been completed to send to Miley Mayer at [facility]. Will attach PCP to note. Please advise Kamini Newsome Carpet Floor Layer Apprentice [facility] [email or web address] documented in this encounter Plan of Treatment Upcoming Encounters Date Type Specialty Care Team Description 09/28/2022 Hem/Onc Treatment Hematology Oncology Maryellen, Chair 1 Hem Onc [facility] [address] [facility] [address] 09/28/2022 Office Visit Pharmacy Pharmacist1, [facility] [address] [facility] [address] 09/28/2022 Office Visit Pulmonary Vivian Phillips CRNP [address] [place] [address] 10/04/2022 Home Visit [facility] July Poe RN [address] [place] [address] 10/13/2022 Office Visit Family Medicine Brianne Pal PA-C [address] [place] [address] 10/17/2022 Scheduled Telephone [facility] Kamini Newsome [address] [facility] [address] 12/06/2022 Office Visit Gastroenterology Lyssa Stout CRNP [address] [place] [address] 12/08/2022 Office Visit Hematology Oncology Tono Sanchez MD [address] [facility] [place] [address] 02/10/2023 Office Visit Sleep Disorders Love Francisco DO [address] [place] [address] 03/01/2023 PulmDiagnostic Pulmonary Function West, Pft [address] [place] [address] Scheduled Procedures Name Priority Associated Diagnoses Date/Ti [...] this encounter Medical Devices Implanted Type Area Communication Professor Device Identifier Shelf Expiration Date Model / Serial / Lot Microtech Sure Clip Implanted:Qty: 2 on 06/03/2020 by Janis Hatch DO at OR [facility] Clip N/A: Colon 04/21/2022 [facility]-F-26-2 35-C-R / / [id number] documented as of this encounter Additional Health Concerns Infection Onset Date Last Indicated Resolved Time MRSA 09/17/2022 09/17/2022 documented as of this encounter Advance Directives Documents on File Type Date Recorded Patient Med Spa Manager Expl anation Advance Directives and Living Will 04/29/2021 ADVANCE DIRECTIVE / LIVING WILL LIVING WILL AND HEALTH CARE POA Power of Manager Copy 04/29/2021 POWER OF A TTORNEY [facility]ALTH CARE [...] patient have Health Care Power of Manager Copy? No Code Status History Code Status Date Activated Date Inactivated Comments Full Code 12/27/2021 2:50 PM 12/27/2021 8:02 PM This order reflects the patients wishes and were consensually agreed upon. Question Answer Comments Discussion of Advance Directives occurred with: Not Discussed Does the patient have a Living Will? No Does the patient have Health Care Power of Manager Copy? No Full Code 03/31/2021 8:57 PM 04/03/2021 [...] File Name Relationship Healthcare Agent [facility] Communication Syed Bustos Spouse Emergency Contact Care Teams Building Maintenance Superintendent Relationship Specialty Start Date End Date Vanita Dunn MD [address] [place] [address] PCP - General Family Medicine 03/16/21 documented as of this encounter
--- OUTSIDE RECORDS SUMMARY | 2023-05-10 17:37 | External Medical Summary | Summary of Care ---
Author Name Unknown Organization [place] [address] Care Team Providers Care Core Winding Operator Name Role Phone Vanita Dunn MD Primary Care Provid er Reason for Visit * Reason Onset Date Comments Follow Up 09/26/2022 Encounter Details Date Type Department Care Team Description 09/26/2022 Scheduled Telephone Care Coordination [address] [place] [address] Kaylee Barakta, Community Health Engagement Manager [address] [place] [address] Allergies Active Allergy Reactions Severity Noted Date Comments Adhesive Tape Itching 04/29/2020 Penicillins Rash 02/12/2008 Penicillin G 07/20/2018 Perflutren Protein A Microsph 2019 Definity-lower back pain documented as of this encounter (statuses as of 09/26/2022) Medications Medication Sig Dispensed Refills Start Date End Date Status nystatin (NYSTOP) 504698 UNIT/GM powder Apply topically to affected area 3 times a day. 60 g 1 10/16/2019 Active Dexcom G6 Soap Tender Device Use as directed. To test blood sugars 4 times a day Dx E11.9 1 Each 0 09/14/2020 Active Dexcom G6 Transmitter Use as directed. To test blood sugars 4 times a day. Change every 90 days. Dx E11.9 1 Each 3 09/14/2020 Active OneTouch Verio In Vitro Strip (Glucose Blood) TESTING once daily 100 Strip 3 10/29/2020 Active OneTouch Delica Plus Elzbnb67L TESTING once daily 100 Each 3 10/29/2020 [...] as of this encounter (statuses as of 09/26/2022) Active Problems Problem Noted Date Hypertensive heart [...] dermatitis of both lower e xtremities 05/07/2012 GN (nonalcoholic steatohepatitis) 04/12 Last Assessment & Plan: Noncompliant with lactuose Constipation 05/02/2012 HTN, goal below 130/80 03/27/2012 Last Assessment & Plan: BP on the low side, but stable -continue isosorbide Cerebral palsy 01/24/2012 Spinal stenosis of lumbar region without neurogenic claudication 12/27/2010 DDD (degenerative disc disease), lumbar Dyslipidemia documented as of this encounter (statuses as of 09/26/2022) Resolved Problems Problem Noted Date Resolved Date [...] pain 01/24/2012 01/17/2017 Genetic Sleep Disorder Research Other*[id number] 05/13/2011 04/07/2016 Obstructive sleep apnea 01/18/2011 12/27/19 [...] as of this encounter (statuses as of 09/26/2022) Immunizations Name Administration Dates Next Due COVID-19 [...] encounter Miscellaneous Notes * Telephone Encounter - Cy Sainz Health Engagement Manager - 09/26/2022 6:58 AM EST Patient is currently still admitted to [facility] Patient will be admitted to SNF on Monday09/28/2022 [facility] Kaylee Khan [facility] documented in this encounter Plan of Treatment Upcoming Encounters Date Type Specialty Care Team Description 09/28/2022 Hem/Onc Treatment Hematology Oncology [place], Chair 1 Hem Onc [address] [place] [address] 09/28/2022 Office Visit Pharmacy Pharmacist1, [facility] [address] [place] [address] 09/28/2022 Office Visit Pulmonary Vivian Phillips CRNP [address] [facility] [place] [address] 10/04/2022 Home Visit [facility] July Poe RN [address] [facility] [place] [address] 10/13/2022 Office Visit Family Medicine Brianne Pal PA-C [address] [place] [address] 10/17/2022 Scheduled Telephone [facility] Kamini Newsome [address] [facility] [place] [address] 12/06/2022 Office Visit [facility] [place] [address] 12/08/2022 Office Visit Hematology Oncology Tono Sanchez MD 200 [place] [address] 02/10/2023 Office Visit Sleep Disorders Love Francisco, [address] [place] [address] 03/01/2023 PulmDiagnostic Pulmonary Function West, Pft [address] [place] [address] Scheduled Procedures Name Priority Associated Diagnoses Date/Ti [...] this encounter Medical Devices Implanted Type Area Hoisting Engineer Pile Driving Device Identifier Shelf Expiration Date Model / Serial / Lot Microtech Sure Clip Implanted:Qty: 2 on 06/03/2020 by Janis Hatch DO at OR [facility] Clip N/A: Colon 04/21/2022 [facility]-F-26-2 35-C-R / / [id number] documented as of this encounter Additional Health Concerns Infection Onset Date Last Indicated Resolved Time MRSA 09/17/2022 09/17/2022 documented as of this encounter Advance Directives Documents on File Type Date Recorded Patient Carrot Harvester Expl anation Advance Directives and Living Will 04/29/2021 ADVANCE DIRECTIVE / LIVING WILL LIVING WILL AND HEALTH CARE POA Power of Concession Worker 04/29/2021 POWER OF A TTORNEY HEALTH [...] the patient have Health Care Power of Concession Worker? No Code Status History Code Status Date Activated Date Inactivated Comments Full Code 12/27/2021 2:50 PM 12/27/2021 8:02 PM This order reflects the patients wishes and were consensually agreed upon. Question Answer Comments Discussion of Advance Directives occurred with: Not Discussed Does the patient have a Living Will? No Does the patient have Health Care Power of Concession Worker? No Full Code 03/31/2021 8:57 PM [...] Syed Bustos Spouse Emergency Contact Care Teams Core Winding Operator Relationship Specialty Start Date End Date Vanita Dunn MD [address] [place] [id number] PCP - General Family Medicine 03/16/21 documented as of this encounter
--- OUTSIDE RECORDS SUMMARY | 2023-05-10 17:37 | External Medical Summary | Summary of Care ---
Author Name Unknown Organization [facility] [place] [address] Care Team Providers Care Home Based Assistant Name Role Phone Vanita Dunn MD Primary Care Provid er Reason for Visit * Reason Onset Date Comments [facility]: Maintenance 09/26/2022 Encounter Details Date Type Department Care Team Description 09/26/2022 Telephone [facility], [facility] [address] [facility] [place] [address] Jerod Kamini [address] [place] [address] [facility]: Maintenance Allergies Active Allergy Reactions Severity Noted Date Comments Adhesive Tape Itching 04/29/2020 Penicillins Rash 02/12/2008 Penicillin G 07/20/2018 Perflutren Protein A Microsph 2019 Definity-lower back pain documented as of this encounter (statuses as of 09/26/2022) Medications Medication Sig Dispensed Refills Start Date End Date Status nystatin (NYSTOP) 674710 UNIT/GM powder Apply topically to affected area 3 times a day. 60 g 1 10/16/2019 Active Dexcom G6 Furnace Worker Device Use as directed. To test blood sugars 4 times a day Dx E11.9 1 Each 0 09/14/2020 Active Dexcom G6 Transmitter Use as directed. To test blood sugars 4 times a day. Change every 90 days. Dx E11.9 1 Each 3 09/14/2020 Active OneTouch Verio In Vitro Strip (Glucose Blood) TESTING once daily 100 Strip 3 10/29/2020 Active OneTouch Delica Plus [id number] TESTING once daily 100 Each 3 10/29/2020 [...] situation. 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 if a watermelon inspector plan is made -continue lexapro Impaired mobility [...] pain 01/24/2012 01/17/2017 Genetic Sleep Disorder Research Other*[id number] 05/13/2011 04/07/2016 Obstructive sleep apnea 01/18/2011 12/27/19 [...] encounter Miscellaneous Notes * Telephone Encounter - Kamini Newsome - 09/26/2022 1:53 PM EST Call placed to [facility]. LVM for Miley in admissions to see if patient was d/c to her facility from [facility] Call placed to patient. CW introduced herself and reason for call. Patient states that she is stillcurrently admitted. Was told that she will be going to [facility] on Monday. CW will attach care team to note as FYI. CW will continue to follow for dc. Patient states that she will be there for about 2 months. Kamini Newsome Division Traffic Superintendent [facility] [email or web address] documented in this encounter Plan of Treatment Upcoming Encounters Date Type Specialty Care Team Description 09/28/2022 Hem/Onc Treatment Hematology Oncology [place], Chair 1 [address]c [address] [address] 09/28/2022 Office Visit Pharmacy Pharmacist1, [facility] [address] 09/28/2022 Office Visit Pulmonary Vivian Phillips CRNP 132 [place] [address] 10/04/2022 Home Visit [facility] July Poe RN 132 [place] [address] 10/13/2022 Office Visit Family Medicine Brianne Pal PARominaC [address] [place] [address] 10/17/2022 Scheduled Telephone [facility] Kamini Newsome [address] [facility] [place] [address] 12/06/2022 Office Visit Gastroenterology Lyssa Stout CRNP 132 [place] [address] 12/08/2022 Office Visit Hematology Oncology [facility]ono [facility] [address] [facility] [address] 02/10/2023 Office Visit Sleep Disorders Love Francisco DO 132 [place] [address] 03/01/2023 PulmDiagnostic Pulmonary Function West, Pft 132 [facility] [place] [address] Scheduled Procedures Name Priority Associated Diagnoses Date/Ti [...] this encounter Medical Devices Implanted Type Area Floral Associate Device Identifier Shelf Expiration Date Model / Serial / Lot Microtech Sure Clip Implanted:Qty: 2 on 06/03/2020 by Janis Hatch DO at OR [facility] Clip N/A: Colon 04/21/[address] [facility]-F-26-2 35-C-R / / [id number] documented as of this encounter Additional Health Concerns Infection Onset Date Last Indicated Resolved Time MRSA 09/17/2022 09/17/2022 documented as of this encounter Advance Directives Documents on File Type Date Recorded Patient Water Resources Program Director Expl anation Advance Directives and Living Will 04/29/2021 ADVANCE DIRECTIVE / LIVING WILL LIVING WILL AND HEALTH CARE POA Power of Social Worker Health Services 04/29/2021 POWER OF A [facility] [...] the patient have Health Care Power of Social Worker Health Services? No Code Status History Code Status Date Activated Date Inactivated Comments Full Code 12/27/2021 2:50 PM 12/27/2021 8:02 PM This order reflects the patients wishes and were consensually agreed upon. Question Answer Comments Discussion of Advance Directives occurred with: Not Discussed Does the patient have a Living Will? No Does the patient have Health Care Power of Social Worker Health Services? No Full Code 03/31/2021 8:57 PM 04/03/2021 [...] Bustos Spouse Emergency Contact Care Teams Home Based Assistant Relationship Specialty Start Date End Date Vanita Dunn MD [address] [place] [address] PCP - General Family Medicine 03/16/21 documented as of this encounter
--- OUTSIDE RECORDS SUMMARY | 2023-05-10 17:37 | External Medical Summary | Summary of Care ---
Author Name Unknown Organization [facility] Address [place] [address] Care Team Providers Care Throw Out Clerk Name Role Phone Vanita Dunn MD Primary Care Provid er Reason for Visit * Reason Onset Date Comments [facility]: Maintenance 09/05/2022 Encounter Details Date Type Department Care Team Description 09/05/2022 Scheduled Telephone [facility], [facility] [address] [facility] [place] [address] [facility], Nurse [facility] [address] [facility] [place] [address] Allergies Active Allergy Reactions Severity Noted Date Comments Adhesive Tape Itching 04/29/2020 Penicillins Rash 02/12/2008 Penicillin G 07/20/2018 Perflutren Protein A Microsph 2019 Definity-lower back pain documented as of this encounter (statuses as of 09/26/2022) Medications Medication Sig Dispensed Refills Start Date End Date Status nystatin (NYSTOP) 100399 UNIT/GM powder Apply topically to affected area 3 times a day. 60 g 1 0 Active Dexcom G6 Cribber Device Use as directed. To test blood sugars 4 times a day Dx E11.9 1 Each 0 1 Active Dexcom G6 Transmitter Use as directed. To test blood sugars 4 times a day. Change every 90 days. Dx E11.9 1 Each 3 1 Active OneTouch Verio In Vitro Strip (Glucose Blood) TESTING once daily 100 Strip 3 1 Active OneTouch Delica Plus [id number] TESTING once daily 100 Each 3 1 [...] pain 01/24/2012 01/17/2017 Genetic Sleep Disorder Research Other*[id number] 05/13/2011 04/07/2016 Obstructive sleep apnea 01/18/2011 12/27/19 [...] Khan- This pt was seen previously at [facility] in May 2022. She continues to have vaginal bleeding with the IUD but you noted that she was not a surgical candidate. Requires Svetlana lift for transfer, which we do not have. Should I schedule her to at least come in and discuss with you (you are at [facility] on )? * Telephone Encounter - THAD [...] thinks she needs a hysterectomy. Pt missed injection wax molder appt last week d/t weather. Advised that she will need to further discuss this with injection wax molder. Pt wishes to see injection wax molder locally but needs svetlana lift to transfer out of w/c onto exam table. Will reach out to scheduling and see if this can be accommodated at [facility]. documented in this encounter Plan of Treatment Upcoming Encounters Date Type Specialty Care Team Description 09/28/2022 Hem/Onc Treatment Hematology Oncology [place], Chair 1 Hem Onc [facility] [address] [facility] [place] [address] 09/28/2022 Office Visit Pharmacy Pharmacist1, [facility] [address] [place] [address] 09/28/2022 Office Visit Pulmonary Vivian Phillips CRNP 132 [place] [address] 10/04/2022 Home Visit [facility] July Poe RN 132 [place] [address] 10/13/2022 Office Visit Family Medicine Brianne Pal PA-C [address] [place] [address] 12/06/2022 Office Visit Gastroenterology Lyssa Stout CRNP 132 [facility] [place] [address] 12/08/2022 Office Visit Hematology Oncology Tono Sanchez MD 200 [place] [address] 02/10/2023 Office Visit Sleep Disorders Love Francisco, 132 [facility] [place] [address] 03/01/2023 PulmDiagnostic Pulmonary Function [place], Pft [address] [facility] [place] [address] Scheduled Procedures Name Priority Associated Diagnoses Date/Ti [...] this encounter Medical Devices Implanted Type Area Postdoctoral Research Associate Device Identifier Shelf Expiration Date Model / Serial / Lot Microtech Sure Clip Implanted:Qty: 2 on 06/03/2020 by Janis Hatch DO at OR [facility] Clip N/A: Colon 04/21/2022 [facility]-F-26-2 35-C-R / / [id number] documented as of this encounter Additional Health Concerns Infection Onset Date Last Indicated Resolved Time MRSA 09/17/2022 09/17/2022 documented as of this encounter Advance Directives Documents on File Type Date Recorded Patient Nut Feeder Expl anation Advance Directives and Living Will 04/29/2021 ADVANCE DIRECTIVE / LIVING WILL LIVING WILL AND HEALTH CARE POA Power of Extrusion Press Supervisor 04/29/2021 POWER OF A [facility] [...] the patient have Health Care Power of Extrusion Press Supervisor? No Code Status History Code Status Date Activated Date Inactivated Comments Full Code 12/27/2021 2:50 PM 12/27/2021 8:02 PM This order reflects the patients wishes and were consensually agreed upon. Question Answer Comments Discussion of Advance Directives occurred with: Not Discussed Does the patient have a Living Will? No Does the patient have Health Care Power of Extrusion Press Supervisor? No Full Code 03/31/2021 8:57 PM [...] Syed Bustos Spouse Emergency Contact Care Teams Throw Out Clerk Relationship Specialty Start Date End Date Vanita Dunn MD [address] [place], [place] [id number] PCP - General Family Medicine 03/16/21 documented as of this encounter
--- OUTSIDE RECORDS SUMMARY | 2023-05-10 17:38 | External Medical Summary | Summary of Care ---
Author Name Unknown Organization [facility] [place] [address] Care Team Providers Care Experimental Mechanic Name Role Phone Vanita Dunn MD Primary Care Provid er Reason for Visit * Reason Onset Date Comments [facility]: Maintenance 09/05/2022 Encounter Details Date Type Department Care Team Description 09/05/2022 Scheduled Telephone [facility], [facility] 132 [facility] [place] [address] [facility], Nurse [facility] [address] [facility] [place] [address] Allergies Active Allergy Reactions Severity Noted Date Comments Adhesive Tape Itching 04/29/2020 Penicillins Rash 02/12/2008 Penicillin G 07/20/2018 Perflutren Protein A Microsph 2019 Definity-lower back pain documented as of this encounter (statuses as of 09/26/2022) Medications Medication Sig Dispensed Refills Start Date End Date Status nystatin (NYSTOP) 171712 UNIT/GM powder Apply topically to affected area 3 times a day. 60 g 1 0 Active Dexcom G6 Operator Bearer Systems Device Use as directed. To test blood sugars 4 times a day Dx E11.9 1 Each 0 1 Active Dexcom G6 Transmitter Use as directed. To test blood sugars 4 times a day. Change every 90 days. Dx E11.9 1 Each 3 1 Active OneTouch Verio In Vitro Strip (Glucose Blood) TESTING once daily 100 Strip 3 1 Active OneTouch Delica Plus [id number] TESTING once daily 100 Each 3 1 [...] a snf plan is made -continue lexapro Impaired mobility [...] pain 01/24/2012 01/17/2017 Genetic Sleep Disorder Research Other*[id number] 05/13/2011 04/07/2016 Obstructive sleep apnea 01/18/2011 12/27/19 [...] thinks she needs a hysterectomy. Pt missed salesperson used cars appt last week d/t weather. Advised that she will need to further discuss this with salesperson used cars. Pt wishes to see salesperson used cars locally but needs candace lift to transfer out of w/c onto exam table. Will reach out to scheduling and see if this can be accommodated at [facility]. documented in this encounter Plan of Treatment Upcoming Encounters Date Type Specialty Care Team Description 09/28/2022 Hem/Onc Treatment Hematology Oncology [place], Chair 1 Hem [address] [place] [address] 09/28/2022 Office Visit Pharmacy Pharmacist1, [facility] Sp [address] [place] [address] 09/28/2022 Office Visit Pulmonary Vivian Phillips CRNP 132 [facility] [place] [address] 10/04/2022 Home Visit [facility] July Poe RN [address] [place] [address] 10/13/2022 Office Visit Family Medicine Brianne Pal [place] [address] [place] [address] 12/06/2022 Office Visit Gastroenterology Lyssa Stout CRNP 132 [place] [address] 12/08/2022 Office Visit Hematology Oncology Tono Sanchez MD 200 [place] [address] 02/10/2023 Office Visit Sleep Disorders Love Francisco, DO [address] [place] [address] 03/01/2023 PulmDiagnostic Pulmonary Function West, Pft [address] [address] Scheduled Procedures Name Priority Associated Diagnoses Date/Ti [...] this encounter Medical Devices Implanted Type Area Impregnator And Drier Helper Device Identifier Shelf Expiration Date Model / Serial / Lot Microtech Sure Clip Implanted:Qty: 2 on 06/03/2020 by Janis Hatch DO at OR [facility] Clip N/A: Colon 04/21/2022 [facility]-F-26-2 35-C-R / / [id number] documented as of this encounter Additional Health Concerns Infection Onset Date Last Indicated Resolved Time MRSA 09/17/2022 09/17/2022 documented as of this encounter Advance Directives Documents on File Type Date Recorded Patient Senior Accountant Analyst Expl anation Advance Directives and Living Will 04/29/2021 ADVANCE DIRECTIVE / LIVING WILL LIVING WILL AND HEALTH CARE POA Power of Head Nurse 04/29/2021 POWER OF A [facility] [...] the patient have Health Care Power of Head Nurse? No Code Status History Code Status Date Activated Date Inactivated Comments Full Code 12/27/2021 2:50 PM 12/27/2021 8:02 PM This order reflects the patients wishes and were consensually agreed upon. Question Answer Comments Discussion of Advance Directives occurred with: Not Discussed Does the patient have a Living Will? No Does the patient have Health Care Power of Head Nurse? No Full Code 03/31/2021 8:57 PM 04/03/2021 [...] Syed Bustos Spouse Emergency Contact Care Teams Experimental Mechanic Relationship Specialty Start Date End Date Vanita Dunn MD [address] [place], [place] [phone] PCP - General Family Medicine 03/16/21 documented as of this encounter
--- OUTSIDE RECORDS SUMMARY | 2023-05-10 17:38 | External Medical Summary | Summary of Care ---
Author Name Unknown Organization [place] [address] Care Team Providers Care Shed Hand Name Role Phone Vanita Dunn MD Primary Care Provid er Reason for Visit * Reason Onset Date Comments Encounter Created in Error 09/21/2022 Encounter Details Date Type Department Care Team Description 09/21/2022 Scheduled Telephone [facility], [facility] [address] [facility] [place] [address] Jerod Kamini [address] [place] [address] Allergies Active Allergy Reactions Severity Noted Date Comments Adhesive Tape Itching 04/29/2020 Penicillins Rash 02/12/2008 Penicillin G 07/20/2018 Perflutren Protein A Microsph 2019 Definity-lower back pain documented as of this encounter (statuses as of 09/23/2022) Medications Medication Sig Dispensed Refills Start Date End Date Status nystatin (NYSTOP) 749872 UNIT/GM powder Apply topically to affected area 3 times a day. 60 g 1 10/16/2019 Active Dexcom G6 Rn Office Device Use as directed. To test blood sugars 4 times a day Dx E11.9 1 Each 0 09/14/2020 Active Dexcom G6 Transmitter Use as directed. To test blood sugars 4 times a day. Change every 90 days. Dx E11.9 1 Each 3 09/14/2020 Active OneTouch Verio In Vitro Strip (Glucose Blood) TESTING once daily 100 Strip 3 10/29/2020 Active OneTouch Delica Plus [id number] TESTING once daily 100 Each 3 10/29/2020 [...] goal of less than 8.0% ([facility]) 35 Units at breakfast, 39 Units before lunch, 45 Units before supper 120 mL 3 07/28/2022 Active Lantus SoloStar 100 UNIT/ML Subcutaneous Solution Pen-injectorIndicati ons:Type 2 diabetes mellitus with hemoglobin A1c goal of less than 8.0% ([facility]) Inject 50 Units under the skin every [...] as of this encounter (statuses as of 09/23/2022) Active Problems Problem Noted Date Hypertensive heart [...] skilled nursing plan is made -continue lexapro Impaired mobility [...] as of this encounter (statuses as of 09/23/2022) Resolved Problems Problem Noted Date Resolved Date [...] pain 01/24/2012 01/17/2017 Genetic Sleep Disorder Research Other*[id number] 05/13/2011 04/07/2016 Obstructive sleep apnea 01/18/2011 12/27/19 [...] as of this encounter (statuses as of 09/23/2022) Immunizations Name Administration Dates Next Due COVID-19 [...] * Telephone Encounter - Kamini Newsome - 09/23/2022 12:42 PM EST error documented in this encounter Plan of Treatment Upcoming Encounters Date Type Specialty Care Team Description 09/26/2022 Scheduled Telephone Family Medicine Kaylee Barakat, [facility] Sand[facility] Machine Operator [address] [facility] [address] 09/28/2022 Hem/Onc Treatment Hematology Oncology [place], Chair 1 Hem Onc [address] [place] [address] 09/28/2022 Office Visit Pharmacy Pharmacist1, [facility] Sp 200 [facility] [address] 09/28/2022 Office Visit Pulmonary Vivian Phillips CRNP 132 [facility] [place] [address] 10/04/2022 Home Visit [facility] July Poe RN 132 [facility] [place] [address] 10/13/2022 Office Visit Family Medicine Brianne Pal PA-C [address] [place] [address] 12/06/2022 Office Visit Gastroenterology Lyssa Stout CRNP 132 [facility] [place] [address] 12/08/2022 Office Visit Hematology Oncology Tono Sanchez MD 200 [facility] [place] [address] 02/10/2023 Office Visit Sleep Disorders Love Francisco DO [address] [place] [address] 03/01/2023 PulmDiagnostic Pulmonary Function [place], Pft 132 [facility] [place] [address] Scheduled Procedures Name Priority Associated Diagnoses Date/Ti [...] encounter Medical Devices Implanted Type Area Automatic Lehr Operator Device Identifier Shelf Expiration Date Model / Serial / Lot Microtech Sure Clip Implanted:Qty: 2 on 06/03/2020 by Janis Hatch, DO at OR [facility] Clip N/A: Colon 04/21/2022 [facility]-F-26-2 35-C-R / / [id number] documented as of this encounter Additional Health Concerns Infection Onset Date Last Indicated Resolved Time MRSA 09/17/2022 09/17/2022 documented as of this encounter Advance Directives Documents on File Type Date Recorded Patient Feather Washer Expl anation Advance Directives and Living Will 04/29/2021 ADVANCE DIRECTIVE / LIVING WILL LIVING WILL AND HEALTH CARE POA Power of Sagger Soak 04/29/2021 POWER OF A [facility] [...] the patient have Health Care Power of Sagger Soak? No Code Status History Code Status Date Activated Date Inactivated Comments Full Code 12/27/2021 2:50 PM 12/27/2021 8:02 PM This order reflects the patients wishes and were consensually agreed upon. Question Answer Comments Discussion of Advance Directives occurred with: Not Discussed Does the patient have a Living Will? No Does the patient have Health Care Power of Sagger Soak? No Full Code 03/31/2021 8:57 PM 04/03/2021 [...] Agents on File Name Relationship Healthcare Agent [facility] p Communication Syed Bustos Spouse Emergency Contact Care Teams Shed Hand Relationship Specialty Start Date End Date Vanita Dunn MD [address] [place] [address] PCP - General Family Medicine 03/16/21 documented as of this encounter
--- OUTSIDE RECORDS SUMMARY | 2023-05-10 17:39 | External Medical Summary | Summary of Care ---
Author Name Unknown Organization [facility] Address [place] [address] Care Team Providers Care Knit Tubing Dyer Name Role Phone Vanita Dunn MD Primary Care Provid er Reason for Visit * Reason Onset Date Comments [facility]: Maintenance 09/21/2022 Encounter Details Date Type Department Care Team Description 09/21/2022 Telephone [facility] [address] [facility] [place] [address] Jerod Kamini [address] [place] [address] [facility]: Maintenance Allergies Active Allergy Reactions Severity Noted Date Comments Adhesive Tape Itching 04/29/2020 Penicillins Rash 02/12/2008 Penicillin G 07/20/2018 Perflutren Protein A Microsph 2019 Definity-lower back pain documented as of this encounter (statuses as of 09/21/2022) Medications Medication Sig Dispensed Refills Start Date End Date Status nystatin (NYSTOP) 214014 UNIT/GM powder Apply topically to affected area 3 times a day. 60 g 1 10/16/2019 Active Dexcom G6 Manager Community Outreach Device Use as directed. To test blood sugars 4 times a day Dx E11.9 1 Each 0 09/14/2020 Active Dexcom G6 Transmitter Use as directed. To test blood sugars 4 times a day. Change every 90 days. Dx E11.9 1 Each 3 09/14/2020 Active OneTouch Verio In Vitro Strip (Glucose Blood) TESTING once daily 100 Strip 3 10/29/2020 Active OneTouch Delica Plus [id number] TESTING once daily 100 Each 3 10/29/2020 [...] as of this encounter (statuses as of 09/21/2022) Active Problems Problem Noted Date Hypertensive heart [...] as of this encounter (statuses as of 09/21/2022) Resolved Problems Problem Noted Date Resolved Date [...] pain 01/24/2012 01/17/2017 Genetic Sleep Disorder Research Other*[id number] 05/13/2011 04/07/2016 Obstructive sleep apnea 01/18/2011 12/27/19 [...] as of this encounter (statuses as of 09/21/2022) Immunizations Name Administration Dates Next Due COVID-19 [...] 12:04 PM EST Incoming email from Miley Forming And Assembling Supervisor at [facility] Reads as follows: "I spoke with both Shaina and her Joel. I also spoke with someone in our business office. Iwas told that they best way financially for them is to have Shaina admitted here directly from the hospital. They are going to the ER this afternoon." Kamini Newsome Nerve Specialist [facility] [email or web address] documented in this encounter Plan of Treatment Upcoming Encounters Date Type Specialty Care Team Description 09/21/2022 Scheduled Telephone [facility] Kamini Newsome [address] [facility] [place] [address] 09/26/2022 Scheduled Telephone Family Medicine Kaylee Barakat, Community [facility] Traffic Routing Engineer [address] [place] [address] 09/26/2022 Office Visit Endocrinology Alberta Duque PA-C [address], [place] [phone] 09/28/2022 Hem/Onc Treatment Hematology Oncology [place], Chair [address] [address] 09/28/2022 Office Visit Pharmacy Pharmacist1, [facility] [address] [place] [address] 09/28/2022 Office Visit Pulmonary [facility] Phillips CRNP [address] [facility] [address] 10/04/2022 [facility] Visit [facility] July Poe, RN 132 [facility] [place] [address] 10/13/2022 Office Visit Family Medicine Brianne Pal PAChadwick [address] [place] [address] 12/06/2022 Office Visit [facility]astroenterology [facility]sa Stout [facility]NP [facility] [place] [address] 12/08/2022 Office Visit Hematology Oncology Tono Sanchez MD 200 [place] [address] 02/10/2023 Office Visit Sleep Disorders Love Francisco, DO [address] [place] [address] 03/01/2023 PulmDiagnostic Pulmonary Function West, Pft [address] [place] [address] Scheduled Procedures Name Priority Associated Diagnoses Date/Ti [...] this encounter Medical Devices Implanted Type Area Sew Out Operator Device Identifier Shelf Expiration Date Model / Serial / Lot Microtech Sure Clip Implanted:Qty: 2 on 06/03/2020 by Janis Hatch DO at OR [facility] Clip N/A: Colon 04/21/2022 ROC-F-26-2 35-C-R / / [id number] documented as of this encounter Additional Health Concerns Infection Onset Date Last Indicated Resolved Time MRSA 09/17/2022 09/17/2022 documented as of this encounter Advance Directives Documents on File Type Date Recorded Patient Accounts Payable Specialist Expl anation Advance Directives and Living Will 04/29/2021 ADVANCE DIRECTIVE / LIVING WILL LIVING WILL AND HEALTH CARE POA Power of Cover Machine Operator 04/29/2021 POWER OF A TTORNEY [...] the patient have Health Care Power of Cover Machine Operator? No Code Status History Code Status Date Activated Date Inactivated Comments Full Code 12/27/2021 2:50 PM 12/27/2021 8:02 PM This order reflects the patients wishes and were consensually agreed upon. Question Answer Comments Discussion of Advance Directives occurred with: Not Discussed Does the patient have a Living Will? No Does the patient have Health Care Power of Cover Machine Operator? No Full Code 03/31/2021 8:57 [...] File Name Relationship [facility] Syed Bustos Spouse Emergency Contact Care Teams Knit Tubing Dyer Relationship Specialty Start Date End Date Vanita Dunn MD [address] [place] [address] PCP - General Family Medicine 03/16/21 documented as of this encounter
--- OUTSIDE RECORDS SUMMARY | 2023-05-10 17:39 | External Medical Summary | Summary of Care ---
Author Name Unknown Organization [facility] Address [place] [address] Care Team Providers Care Sql Dba Name Role Phone Vanita Dunn MD Primary Care Provid er Reason for Visit * Reason Onset Date Comments [facility]: Maintenance 09/22/2022 Encounter Details Date Type Department Care Team Description 09/22/2022 Telephone [facility], [facility] [address] [facility] [place] [address] Jerod Kamini [address] [place] [address] [facility]: Maintenance Allergies Active Allergy Reactions Severity Noted Date Comments Adhesive Tape Itching 04/29/2020 Penicillins Rash 02/12/2008 Penicillin G 07/20/2018 Perflutren Protein A Microsph 2019 Definity-lower back pain documented as of this encounter (statuses as of 09/22/2022) Medications Medication Sig Dispensed Refills Start Date End Date Status nystatin (NYSTOP) 146377 UNIT/GM powder Apply topically to affected area 3 times a day. 60 g 1 10/16/2019 Active Dexcom G6 Display Fabrication Supervisor Device Use as directed. To test blood sugars 4 times a day Dx E11.9 1 Each 0 09/14/2020 Active Dexcom G6 Transmitter Use as directed. To test blood sugars 4 times a day. Change every 90 days. Dx E11.9 1 Each 3 09/14/2020 Active OneTouch Verio In Vitro Strip (Glucose Blood) TESTING once daily 100 Strip 3 10/29/2020 Active OneTouch Delica Plus [id number] TESTING once daily 100 Each 3 10/29/2020 [...] as of this encounter (statuses as of 09/22/2022) Active Problems Problem Noted Date Hypertensive heart [...] current situation. 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 if a licensed architect plan is made -continue lexapro Impaired [...] as of this encounter (statuses as of 09/22/2022) Resolved Problems Problem Noted Date Resolved Date [...] pain 01/24/2012 01/17/2017 Genetic Sleep Disorder Research Other*[id number] 05/13/2011 04/07/2016 Obstructive sleep apnea 01/18/2011 12/27/19 [...] as of this encounter (statuses as of 09/22/2022) Immunizations Name Administration Dates Next Due COVID-19 [...] * Telephone Encounter - Kamini Newsome - 09/22/2022 11:33 AM EST Incoming email from Miley Mayer at [facility]. Pt went to [facility] yesterday. Received the referral from inpatient for skilled services. Will reach out to CM today to see if there are any updates on d/c Kamini Newsome Quality Control Auditor [facility] [email or web address] documented in this encounter Plan of Treatment Upcoming Encounters Date Type Specialty Care Team Description 09/26/2022 Scheduled Telephone Family Medicine Brown, Kaylee M, [facility] Warp Coiler [address] [place] [address] 09/26/2022 Office Visit Endocrinology Alberta Duque PA-C [address] [place] [address] 09/28/2022 Hem/Onc Treatment Hematology Oncology [place], Chair 1 Hem Onc [facility] [address] [place] [address] 09/28/2022 Office Visit Pharmacy Pharmacist1, [facility] 200 [place] [address] 09/28/2022 Office Visit Pulmonary Vivian Phillips CRNP 132 [facility] [place] [address] 10/04/2022 Home Visit [facility] Poe RN [address] [facility] [place] [address] 10/13/2022 Office Visit Family Medicine Brianne Pal PAChadwick [address] [place] [address] 12/06/2022 Office Visit Gastroenterology Lyssa Stout CRNP [address] [facility] [place] [address] 12/08/2022 Office Visit Hematology Oncology Tono Sanchez MD [address] [place] [address] 02/10/2023 Office Visit Sleep Disorders Love Francisco DO [address] [place] [address] 03/01/2023 PulmDiagnostic Pulmonary Function West, Pft 132 [facility] [place] [address] Scheduled Procedures Name Priority Associated Diagnoses [...] this encounter Medical Devices Implanted Type Area First Aid Officer Device Identifier Shelf Expiration Date Model / Serial / Lot Microtech Sure Clip Implanted:Qty: 2 on 06/03/2020 by Janis Hatch DO at OR [facility] Clip N/A: Colon 04/21/2022 [facility]-F-26-2 35-C-R / / [id number] documented as of this encounter Additional Health Concerns Infection Onset Date Last Indicated Resolved Time MRSA 09/17/2022 09/17/2022 documented as of this encounter Advance Directives Documents on File Type Date Recorded Patient Tester/Lift Trucker Expl anation Advance Directives and Living Will 04/29/2021 ADVANCE DIRECTIVE / LIVING WILL LIVING WILL AND HEALTH CARE POA Power of Anchor Tack Puller 04/29/2021 POWER OF A TTORNEY HEALTH [...] the patient have Health Care Power of Anchor Tack Puller? No Code Status History Code Status Date Activated Date Inactivated Comments Full Code 12/27/2021 2:50 PM 12/27/2021 8:02 PM This order reflects the patients wishes and were consensually agreed upon. Question Answer Comments Discussion of Advance Directives occurred with: Not Discussed Does the patient have a Living Will? No Does the patient have Health Care Power of Anchor Tack Puller? No Full Code 03/31/2021 8:57 PM [...] Syed Bustos Spouse Emergency Contact Care Teams Sql Dba Relationship Specialty Start Date End Date Vanita Dunn MD [address] [place], [place] [phone] PCP - General Family Medicine 03/16/21 documented as of this encounter
--- OUTSIDE RECORDS SUMMARY | 2023-05-10 17:39 | External Medical Summary | Summary of Care ---
Author Name Unknown Organization [facility] Address [place] [address] Care Team Providers Care Mash Filter Press Operator Name Role Phone Vanita Dunn MD Primary Care Provid er Reason for Visit * Reason Onset Date Comments [facility]: Maintenance 09/21/2022 Encounter Details Date Type Department Care Team Description 09/21/2022 Telephone [facility], [facility] Region [address] [facility] [place] [address] Jerod Kamini [address] [place] [address] [facility]: Maintenance Allergies Active Allergy Reactions Severity Noted Date Comments Adhesive Tape Itching 04/29/2020 Penicillins Rash 02/12/2008 Penicillin G 07/20/2018 Perflutren Protein A Microsph 2019 Definity-lower back pain documented as of this encounter (statuses as of 09/21/2022) Medications Medication Sig Dispensed Refills Start Date End Date Status nystatin (NYSTOP) 614745 UNIT/GM powder Apply topically to affected area 3 times a day. 60 g 1 10/16/2019 Active Dexcom G6 Glass Polisher Device Use as directed. To test blood sugars 4 times a day Dx E11.9 1 Each 0 09/14/2020 Active Dexcom G6 Transmitter Use as directed. To test blood sugars 4 times a day. Change every 90 days. Dx E11.9 1 Each 3 09/14/2020 Active OneTouch Verio In Vitro Strip (Glucose Blood) TESTING once daily 100 Strip 3 10/29/2020 Active OneTouch Delica Plus [id number] TESTING once daily 100 Each 3 10/29/2020 [...] current situation. 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 if a terminologist plan is made -continue lexapro Impaired mobility [...] pain 01/24/2012 01/17/2017 Genetic Sleep Disorder Research Other*[id number] 05/13/2011 04/07/2016 Obstructive sleep apnea 01/18/2011 12/27/19 [...] 12:04 PM EST Incoming email from Miley Heel Builder Machine at [facility]. Reads as follows: "I spoke with both Shaina and her Joel. I also spoke with someone in our business office. Iwas told that they best way financially for them is to have Shaina admitted here directly from the hospital. They are going to the ER this afternoon." Kamini Newsome Warp Changer [facility] [email or web address] documented in this encounter Plan of Treatment Upcoming Encounters Date Type Specialty Care Team Description 09/21/2022 Scheduled Telephone [facility] Kamini Newsome [address] [facility] [place] [address] 09/26/2022 Scheduled Telephone Family Medicine Kaylee Barakat, Community [facility] Retail Sales Clerk [address] [place] [address] 09/26/2022 Office Visit Endocrinology Alberta Duque PA-C [address] [place], [place] [phone] 09/28/2022 Hem/Onc Treatment Hematology Oncology [place], Chair [address] [address] 09/28/2022 Office Visit Pharmacy Pharmacist1, [facility] [address] [place] [address] 09/28/2022 Office Visit Pulmonary Vivian Phillips CRNP [address] [facility] [place] [address] 10/04/2022 Home Visit [facility] July Poe, RN 132 [facility] [place] [address] 10/13/2022 Office Visit Family Medicine Brianne Pal PAChadwick [address] [place] [address] 12/06/2022 Office Visit [facility]enterology [facility] [place] [address] 12/08/2022 Office Visit Hematology Oncology Tono Sanchez MD 200 [place] [address] 02/10/2023 Office Visit Sleep Disorders Love Francisco, DO [address] [place] [address] 03/01/2023 PulmDiagnostic Pulmonary Function West, Pft [address] [place] [address] Scheduled Procedures Name Priority Associated Diagnoses Date/Ti [...] this encounter Medical Devices Implanted Type Area Carton Forming Machine Adjuster Device Identifier Shelf Expiration Date Model / Serial / Lot Microtech Sure Clip Implanted:Qty: 2 on 06/03/2020 by Janis Hatch DO at OR [facility] Clip N/A: Colon 04/21/2022 ROC-F-26-2 35-C-R / / [id number] documented as of this encounter Additional Health Concerns Infection Onset Date Last Indicated Resolved Time MRSA 09/17/2022 09/17/2022 documented as of this encounter Advance Directives Documents on File Type Date Recorded Patient Batter Mixer Expl anation Advance Directives and Living Will 04/29/2021 ADVANCE DIRECTIVE / LIVING WILL LIVING WILL AND HEALTH CARE POA Power of Grants Administrator 04/29/2021 POWER OF A TTORNEY HEALTH CARE [...] the patient have Health Care Power of Grants Administrator? No Code Status History Code Status Date Activated Date Inactivated Comments Full Code 12/27/2021 2:50 PM 12/27/2021 8:02 PM This order reflects the patients wishes and were consensually agreed upon. Question Answer Comments Discussion of Advance Directives occurred with: Not Discussed Does the patient have a Living Will? No Does the patient have Health Care Power of Grants Administrator? No Full Code 03/31/2021 8:57 PM 04/03/2021 [...] File Name Relationship Healthcare Agent [facility] Communication Syed Bustos Spouse Emergency Contact Care Teams Mash Filter Press Operator Relationship Specialty Start Date End Date Vanita Dunn MD [address] [place] [address] PCP - General Family Medicine 03/16/21 documented as of this encounter
--- OUTSIDE RECORDS SUMMARY | 2023-05-10 17:40 | External Medical Summary | Summary of Care ---
Author Name Unknown Organization [facility] Address [place] [address] Care Team Providers Care Staffing Manager Name Role Phone Vanita Dunn MD Primary Care Provid er Reason for Visit * Reason Onset Date Comments [facility]: Maintenance 09/21/2022 Encounter Details Date Type Department Care Team Description 09/21/2022 Telephone [facility], [facility] Region [address] [facility] [place] [address] Jerod Kamini [address] [place] [address] [facility]: Maintenance Allergies Active Allergy Reactions Severity Noted Date Comments Adhesive Tape Itching 04/29/2020 Penicillins Rash 02/12/2008 Penicillin G 07/20/2018 Perflutren Protein A Microsph 2019 Definity-lower back pain documented as of this encounter (statuses as of 09/21/2022) Medications Medication Sig Dispensed Refills Start Date End Date Status nystatin (NYSTOP) 090799 UNIT/GM powder Apply topically to affected area 3 times a day. 60 g 1 10/16/2019 Active Dexcom G6 Animal Anatomy Teacher Device Use as directed. To test blood sugars 4 times a day Dx E11.9 1 Each 0 09/14/2020 Active Dexcom G6 Transmitter Use as directed. To test blood sugars 4 times a day. Change every 90 days. Dx E11.9 1 Each 3 09/14/2020 Active OneTouch Verio In Vitro Strip (Glucose Blood) TESTING once daily 100 Strip 3 10/29/2020 Active OneTouch Delica Plus [id number] TESTING once daily 100 Each 3 10/29/2020 [...] pain 01/24/2012 01/17/2017 Genetic Sleep Disorder Research Other*[id number] 05/13/2011 04/07/2016 Obstructive sleep apnea 01/18/2011 12/27/19 [...] Telephone Encounter - Kamini Newsome - 09/21/2022 11:08 AM EST Incoming call from Miley Mayer at [facility]. Can take patient just has questions on payer source. Will reach out to pt and go over details. Will reach back out to CW after conversation with family to discuss next steps. Kamini Newsome Boxing And Pressing Supervisor [facility] [email or web address] documented in this encounter Plan of Treatment Upcoming Encounters Date Type Specialty Care Team Description 09/21/2022 Scheduled Telephone [facility] Kamini Newsome [address] [facility] [place] [address] 09/26/2022 Scheduled Telephone Family Medicine Kaylee Barakat, Community Health Collections Assistant [address] [place] [address] 09/26/2022 Office Visit Endocrinology Alberta Duque PA-C [address] [place] [address] 09/28/2022 Hem/Onc Treatment Hematology Oncology [place], Chair [address] [place] [address] 09/28/2022 Office Visit Pharmacy Pharmacist1, [facility] 200 [place] [address] 09/28/2022 Office Visit Pulmonary [facility] Phillips [facility] [address] 10/04/2022 [facility]oe [facility] [address] 10/13/2022 Office Visit Family Medicine Brianne Pal PA-C [address] [place] [address] 12/06/2022 Office Visit Gastroenterology Lyssa Stout CRNP 132 [facility] [place] [address] 12/08/2022 Office Visit Hematology Oncology Tono Sanchez MD 200 [place] [address] 02/10/2023 Office Visit Sleep Disorders Francisco, Love Tracie, DO [address] [place] [address] 03/01/2023 PulmDiagnostic Pulmonary Function West, Pft [address] [place] [address] Scheduled Procedures Name Priority Associated Diagnoses Date/Ti [...] this encounter Medical Devices Implanted Type Area Generator Operator Straight Bevel Gear Device Identifier Shelf Expiration Date Model / Serial / Lot Microtech Sure Clip Implanted:Qty: 2 on 06/03/2020 by Janis Hatch DO at OR [facility] Clip N/A: Colon 04/21/2022 [facility]-F-26-2 35-C-R / / [id number] documented as of this encounter Additional Health Concerns Infection Onset Date Last Indicated Resolved Time MRSA 09/17/2022 09/17/2022 documented as of this encounter Advance Directives Documents on File Type Date 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 No Code Status History Code Status Date Activated Date Inactivated Comments Full Code 12/27/2021 2:50 PM 12/27/2021 8:02 PM This order reflects the patients wishes and were consensually agreed upon. Question Answer Comments Discussion of Advance Directives occurred with: Not Discussed Does the patient have a Living Will? No Does the patient have Health Care Power of Osteopathic Resident? No Full Code 03/31/2021 8:57 PM 04/03/2021 [...] Syed Bustos Spouse Emergency Contact Care Teams Staffing Manager Relationship Specialty Start Date End Date Vanita Dunn MD [address] [place] [address] PCP - General Family Medicine 03/16/21 documented as of this encounter
--- OUTSIDE RECORDS SUMMARY | 2023-05-10 17:40 | External Medical Summary | Summary of Care ---
Author Name Unknown Organization [facility] [place] [address] Care Team Providers Care Seed Core Operator Name Role Phone Vanita Dunn MD Primary Care Provid er Reason for Visit * Reason Onset Date Comments [facility]: Maintenance 09/21/2022 Encounter Details Date Type Department Care Team Description 09/21/2022 Telephone [facility], [facility] [address] [facility] [place] [address] Jerod Kamini [address] [place] [address] [facility]: Maintenance Allergies Active Allergy Reactions Severity Noted Date Comments Adhesive Tape Itching 04/29/2020 Penicillins Rash 02/12/2008 Penicillin G 07/20/2018 Perflutren Protein A Microsph 2019 Definity-lower back pain documented as of this encounter (statuses as of 09/21/2022) Medications Medication Sig Dispensed Refills Start Date End Date Status nystatin (NYSTOP) 275663 UNIT/GM powder Apply topically to affected area 3 times a day. 60 g 1 10/16/2019 Active Dexcom G6 Buggyman Device Use as directed. To test blood sugars 4 times a day Dx E11.9 1 Each 0 09/14/2020 Active Dexcom G6 Transmitter Use as directed. To test blood sugars 4 times a day. Change every 90 days. Dx E11.9 1 Each 3 09/14/2020 Active OneTouch Verio In Vitro Strip (Glucose Blood) TESTING once daily 100 Strip 3 10/29/2020 Active OneTouch Delica Plus [id number] TESTING once daily 100 Each 3 10/29/2020 [...] pain 01/24/2012 01/17/2017 Genetic Sleep Disorder Research Other*[id number] 05/13/2011 04/07/2016 Obstructive sleep apnea 01/18/2011 12/27/19 [...] completed to send to Miley Mayer at [facility]. Will attach PCP to note. Please advise Kamini Newsome [facility] [email or web address] documented in this encounter Plan of Treatment Upcoming Encounters Date Type Specialty Care Team Description 09/21/2022 Scheduled Telephone [facility] Kamini Newsome [address] [facility] [place] [address] 09/26/2022 Scheduled Telephone Family Medicine Kaylee Barakat, Community Health Valuer [address] [place] [address] 09/26/2022 Office Visit Endocrinology Alberta Duque PA-C [address] [place], [place] [id number] 09/28/2022 Hem/Onc Treatment Hematology Oncology [place], Chair [address] [address] 09/28/2022 Office Visit Pharmacy Pharmacist1, [facility] [address] [place] [address] 09/28/2022 Office Visit Pulmonary Vivian Phillips CRNP [address] [facility] [place] [address] 10/04/2022 Home Visit [facility] July Poe, RN [address] [place] [address] 10/13/2022 Office Visit Family Medicine Brianne Pal PARominaC [address] [place] [address] 12/06/2022 Office Visit Gastroenterology Lyssa Stout CRNP [address] [place] [address] 12/08/2022 Office Visit Hematology Oncology Tono Sanchez MD [address] [place] [address] 02/10/2023 Office Visit Sleep Disorders FranciscoChengy Tracie, DO [address] [place] [address] 03/01/2023 PulmDiagnostic Pulmonary Function [place], Pft [address] [place] [address] Scheduled Procedures Name Priority Associated Diagnoses Date/Ti [...] this encounter Medical Devices Implanted Type Area Assembler Faucets Device Identifier Shelf Expiration Date Model / Serial / Lot Microtech Sure Clip Implanted:Qty: 2 on 06/03/2020 by Janis Hatch DO at OR [facility] Clip N/A: Colon 04/21/2022 [facility]-F-26-2 35-C-R / / [id number] documented as of this encounter Additional Health Concerns Infection Onset Date Last Indicated Resolved Time MRSA 09/17/2022 09/17/2022 documented as of this encounter Advance Directives Documents on File Type Date 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 No Code Status History Code Status Date Activated Date Inactivated Comments Full Code 12/27/2021 2:50 PM 12/27/2021 8:02 PM This order reflects the patients wishes and were consensually agreed upon. Question Answer Comments Discussion of Advance Directives occurred with: Not Discussed Does the patient have a Living Will? No Does the patient have Health Care Power of Strap Cutter? No Full Code 03/31/2021 8:57 PM 04/03/2021 [...] Syed Bustos Spouse Emergency Contact Care Teams Seed Core Operator Relationship Specialty Start Date End Date Vanita Dunn MD [address] [place], [place] [phone] PCP - General Family Medicine 03/16/21 documented as of this encounter
--- OUTSIDE RECORDS SUMMARY | 2023-05-10 17:41 | External Medical Summary | Summary of Care ---
Author Name Unknown Organization [place] [address] Care Team Providers Care Windows Server Specialist Name Role Phone Vanita Dunn MD Primary Care Provid er Reason for Visit * Reason Onset Date Comments Advice 09/20/2022 Encounter Details Date Type Department Care Team Description 09/20/2022 Telephone [facility] [address] [place] [address] Vanita Dunn MD [address] [place] [address] Advice Allergies Active Allergy Reactions Severity Noted Date Comments Adhesive Tape Itching 04/29/2020 Penicillins Rash 02/12/2008 Penicillin G 07/20/2018 Perflutren Protein A Microsph 2019 Definity-lower back pain documented as of this encounter (statuses as of 09/21/2022) Medications Medication Sig Dispensed Refills Start Date End Date Status nystatin (NYSTOP) 851002 UNIT/GM powder Apply topically to affected area 3 times a day. 60 g 1 10/16/2019 Active Dexcom G6 Load Blocker Device Use as directed. To test blood sugars 4 times a day Dx E11.9 1 Each 0 09/14/2020 Active Dexcom G6 Transmitter Use as directed. To test blood sugars 4 times a day. Change every 90 days. Dx E11.9 1 Each 3 09/14/2020 Active OneTouch Verio In Vitro Strip (Glucose Blood) TESTING once daily 100 Strip 3 10/29/2020 Active OneTouch Delica Plus [id number] TESTING once daily 100 Each 3 10/29/2020 [...] than 8.0% ([facility]) Inject 50 Units under the [...] care facility plan is made -continue lexapro Impaired mobility [...] pain 01/24/2012 01/17/2017 Genetic Sleep Disorder Research Other*[id number] 05/13/2011 04/07/2016 Obstructive sleep apnea 01/18/2011 12/27/19 [...] Miscellaneous Notes * Telephone Encounter - Tamara Fabian LPN [...] at Home Kamini Newsome [address] [facility] [place] [address] 09/26/2022 Scheduled Telephone Family Medicine Kaylee Barakat, Community Health Radio Talk Show Host [address] [place] [address] 09/26/2022 Office Visit Endocrinology Alberta Duque PA-C [address] [place], [place] [phone] 09/28/2022 Hem/Onc Treatment Hematology Oncology [place], Chair [address] [place] [address] 09/28/2022 Office Visit Pharmacy Pharmacist1, [facility] [address] [place] [address] 09/28/2022 Office Visit Pulmonary Vivian Phillips CRNP [address] [facility] [place] [address] 10/04/2022 Home Visit [facility] July Poe, RN [address] [place] [address] 10/13/2022 Office Visit Family Medicine Brianne Pal PARominaC [address] [place] [address] 12/06/2022 Office Visit Gastroenterology Lyssa Stout CRNP [address] [place] [address] 12/08/2022 Office Visit Hematology Oncology Tono Sanchez MD 200 [place] [address] 02/10/2023 Office Visit Sleep Disorders FranciscoLovearet, DO [address] [place] [address] 03/01/2023 PulmDiagnostic Pulmonary Function [place], Pft [address] [place] [address] Scheduled Procedures Name Priority Associated Diagnoses Date/Ti [...] this encounter Medical Devices Implanted Type Area Railcar Switcher Device Identifier Shelf Expiration Date Model / Serial / Lot Microtech Sure Clip Implanted:Qty: 2 on 06/03/2020 by Janis Hatch DO at OR [facility] Clip N/A: Colon 04/21/2022 [facility]-F-26-2 35-C-R / / [id number] documented as of this encounter Additional Health Concerns Infection Onset Date Last Indicated Resolved Time MRSA 09/17/2022 09/17/2022 documented as of this encounter Advance Directives Documents on File Type Date 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 No Code Status History Code Status Date Activated Date Inactivated Comments Full Code 12/27/2021 2:50 PM 12/27/2021 8:02 PM This order reflects the patients wishes and were consensually agreed upon. Question Answer Comments Discussion of Advance Directives occurred with: Not Discussed Does the patient have a Living Will? No Does the patient have Health Care Power of Merchandise Coordinator? No Full Code 03/31/2021 8:57 PM [...] Syed Bustos Spouse Emergency Contact Care Teams Windows Server Specialist Relationship Specialty Start Date End Date Vanita Dunn MD [address] [place], [place] [phone] PCP - General Family Medicine 03/16/21 documented as of this encounter
--- OUTSIDE RECORDS SUMMARY | 2023-05-10 17:41 | External Medical Summary | Summary of Care ---
Author Name Unknown Organization [facility] [place] [address] Care Team Providers Care Transformer Maker Name Role Phone Vanita Dunn MD Primary Care Provid er Reason for Visit * Reason Onset Date Comments [facility]: Maintenance 09/20/2022 Encounter Details Date Type Department Care Team Description 09/20/2022 Telephone [facility] [address] [facility] [place] [address] Jerod Kamini [address] [place] [address] [facility]: Maintenance Allergies Active Allergy Reactions Severity Noted Date Comments Adhesive Tape Itching 04/29/2020 Penicillins Rash 02/12/2008 Penicillin G 07/20/2018 Perflutren Protein A Microsph 2019 Definity-lower back pain documented as of this encounter (statuses as of 09/20/2022) Medications Medication Sig Dispensed Refills Start Date End Date Status nystatin (NYSTOP) 411115 UNIT/GM powder Apply topically to affected area 3 times a day. 60 g 1 10/16/2019 Active Dexcom G6 Electric Motor Rebuilder Device Use as directed. To test blood sugars 4 times a day Dx E11.9 1 Each 0 09/14/2020 Active Dexcom G6 Transmitter Use as directed. To test blood sugars 4 times a day. Change every 90 days. Dx E11.9 1 Each 3 09/14/2020 Active OneTouch Verio In Vitro Strip (Glucose Blood) TESTING once daily 100 Strip 3 10/29/2020 Active OneTouch Delica Plus [id number] TESTING once daily 100 Each 3 10/29/2020 [...] as of this encounter (statuses as of 09/20/2022) Active Problems Problem Noted Date Hypertensive heart [...] current situation. 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 if a roasterman plan is made -continue lexapro Impaired mobility [...] as of this encounter (statuses as of 09/20/2022) Resolved Problems Problem Noted Date Resolved Date [...] pain 01/24/2012 01/17/2017 Genetic Sleep Disorder Research Other*[id number] 05/13/2011 04/07/2016 Obstructive sleep apnea 01/18/2011 12/27/19 [...] as of this encounter (statuses as of 09/20/2022) Immunizations Name Administration Dates Next Due COVID-19 [...] * Telephone Encounter - Kamini Newsome - 09/20/2022 3:48 PM EST Call placed to PCP office phone number as listed. Provided patient name and to dough mixer operator. Confirmed that PCP received the paperwork and it was expedited. Explained that the Ma51 and PASAR are needed for patient to go into SNF. Incoming email from [facility] at [facility]. Still willing to accept patient with MRSA infection as long as it remains covered. CW will f/u tomorrow with PCP office to ensure paperwork has been completed. Kamini Newsome Hole Digger [facility] [email or web address] documented in this encounter Plan of Treatment Upcoming Encounters Date Type Specialty Care Team Description 09/21/2022 Scheduled Telephone [facility] Kamini Newsome [address] [facility] [place] [address] 09/26/2022 Scheduled Telephone Family Medicine Kaylee Barakat, Community Health Human Resources Operations Coordinator [address] [place] [address] 09/26/2022 Office Visit Endocrinology Alberta Duque PA-C [address] [place] [address] 09/28/2022 Hem/Onc Treatment Hematology Oncology [place], Chair 1 Hem Onc [address] [facility] [address] 09/28/2022 Office Visit [facility] Pharmacist1, [facility] [address] [facility] [address] 09/28/2022 Office Visit Pulmonary Vivian Phillips CRNP [address] [place] [address] 10/04/2022 Home Visit [facility] July Poe RN [address] [place] [address] 10/13/2022 Office Visit Family Medicine Brianne Pal PARominaC [address] [facility] [place] [address] 12/06/2022 Office Visit Gastroenterology Lyssa Stout CRNP [address] [place] [address] 12/08/2022 Office Visit Hematology Oncology Tono Sanchez MD 200 [place] [address] 02/10/2023 Office Visit Sleep Disorders Love Francisco, DO [address] [place] [address] 03/01/2023 PulmDiagnostic Pulmonary Function [place], Pft [address] [place] [address] Scheduled Procedures Name Priority Associated Diagnoses Date/Ti [...] this encounter Medical Devices Implanted Type Area Tool Worker Device Identifier Shelf Expiration Date Model / Serial / Lot Microtech Sure Clip Implanted:Qty: 2 on 06/03/2020 by Janis Hatch DO at OR [facility] Clip N/A: Colon 04/21/2022 [facility]-F-26-2 35-C-R / / [id number] documented as of this encounter Additional Health Concerns Infection Onset Date Last Indicated Resolved Time MRSA 09/17/2022 09/17/2022 documented as of this encounter Advance Directives Documents on File Type Date Recorded 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 No Code Status History Code Status Date Activated Date Inactivated Comments Full Code 12/27/2021 2:50 PM 12/27/2021 8:02 PM This order reflects the patients wishes and were consensually agreed upon. Question Answer Comments Discussion of Advance Directives occurred with: Not Discussed Does the patient have a Living Will? No Does the patient have Health Care Power of Check Writing Machine Operator? No Full Code 03/31/2021 8:57 [...] Syed Bustos Spouse Emergency Contact Care Teams Transformer Maker Relationship Specialty Start Date End Date Vanita Dunn MD [address] [place] [address] PCP - General Family Medicine 03/16/21 documented as of this encounter
--- OUTSIDE RECORDS SUMMARY | 2023-05-10 17:41 | External Medical Summary | Summary of Care ---
Author Name Unknown Organization [place] [address] Care Team Providers Care Petrography Teacher Name Role Phone Vanita Dunn MD Primary Care Provid er Reason for Visit * Reason Comments [facility]: Maintenance Encounter Details Date Type Department Care Team Description 09/20/2022 Home Visit Care Coordination [address] [place] [address] Kaylee Barakat, Community Health Press Bucker [address] [place] [address] Allergies Active Allergy Reactions Severity Noted Date Comments Adhesive Tape Itching 04/29/2020 Penicillins Rash 02/12/2008 Penicillin G 07/20/2018 Perflutren Protein A Microsph 2019 Definity-lower back pain documented as of this encounter (statuses as of 09/20/2022) Medications Medication Sig Dispensed Refills Start Date End Date Status nystatin (NYSTOP) 131533 UNIT/GM powder Apply topically to affected area 3 times a day. 60 g 1 10/16/2019 Active Dexcom G6 Bun Panner Device Use as directed. To test blood sugars 4 times a day Dx E11.9 1 Each 0 09/14/2020 Active Dexcom G6 Transmitter Use as directed. To test blood sugars 4 times a day. Change every 90 days. Dx E11.9 1 Each 3 09/14/2020 Active OneTouch Verio In Vitro Strip (Glucose Blood) TESTING once daily 100 Strip 3 10/29/2020 Active OneTouch Delica Plus [id number] TESTING once daily 100 Each 3 10/29/2020 [...] less than 7.0% ([facility]) inject 4.5mg (1 pen) under the skin [...] customer service plan is made -continue lexapro Impaired mobility [...] pain 01/24/2012 01/17/2017 Genetic Sleep Disorder Research Other*[id number] 05/13/2011 04/07/2016 Obstructive sleep apnea 01/18/2011 12/27/19 [...] Sign Reading Time Taken Comments Blood Pressure 114/78 09/20/2022 2:09 PM EST Pulse 72 09/20/2022 2:09 PM EST Temperature 37.2 C (98.9 F) 09/20/2022 2:09 PM ES T Respiratory Rate 20 09/20/2022 2:09 PM EST Oxygen Saturation 97% 09/20/2022 2:09 PM EST Inhaled Oxygen Concentration - [...] as of this encounter Progress Notes * Kaylee Barakat, [facility] Press Bucker - 09/20/2022 1:47 PM EST Community [facility] Press Bucker Visit Date: 09/20/2022 Time: 1:47 PM Name: Shaina Bustos : 1955 Referral Source: assistant spa manager Source of Information: Patient Patient can read in [place]: Yes. Tire Finisher needed: No. COVID-19 screening completed: Yes Vitals: Vital signs completed: Yes, vital signs within normal range. There were no vitals taken for this visit. Condition Changes: Changes in health or social status since last visit: Patient Reporting she was seen a convenient care for toe pain Out come is infection Started on antibiotics With out childcare worker for several weeks She is desperate to be given a shower not using her puer wick patient feels it would be beneficial to use Denied any bowl issues Patient has ongoing vaginal bleeding Denied any SOB has been trying to keep her clean he is struggling Dried blood on right great toe was cleaning the area with peroxide and applied antibacterial ointment to area then covered with a clean gauze placment is in progress The patient has new concerns since last visit: No Progress towards goals since last visit: Denied SOB Medications: Medication review completed? No, . Does the patient have barriers to medication adherence? No. Patient reports difficulty paying for medications or might in the future: No. Telehealth: This is a telehealth visit: No. Symptoms Surveys and Evaluations: [facility] completed this visit: No. Last flowsheet values for [facility]: Age 65+: 1 (09/13/2022 3:00 PM) Diagnosis (3 or more co-existing): 1 (09/13/2022 3:00 PM) Prior history of falls within 3 months: 0 (09/13/2022 3:00 PM) Incontinence: 1 (09/13/2022 3:00 PM) Visual impairment: 1 (09/13/2022 3:00 PM) Impaired functional mobility: 1 (09/13/2022 3:00 PM) Environmental hazards: 1 (09/13/2022 3:00 PM) Poly Pharmacy (4 or more prescriptions - any type): 1 (09/13/2022 3:00 PM) Pain affecting level of function: 0 (09/13/2022 3:00 PM) Cognitive impairment: 0 (09/13/2022 3:00 PM) Score - a score of 4 or more is considered at risk for fallin (09/13/2022 3:00 PM) Plan: Reinforced patient's three red flags by the care team 1. S/s of UTI - Fever, confusion 2. Increased SOB 3. Fever Plan for the patient Working with high school social studies teacher for placement due to lack of childcare worker in the home Follow Up: Patient encouraged to call the intake phone number for all urgent but not emergent issues. Scheduled to follow up with patient By phone in 1 week [facility] Press Bucker 09/20/2022 1:47 PM Electronically signed by Kaylee Barakat [facility] Press Bucker at 09/20/2022 4:01 PM EST documented in this encounter Plan of Treatment Upcoming Encounters Date Type Specialty Care Team Description 09/21/2022 Scheduled Telephone [facility] Kamini Newsome [address] [facility] [place] [address] 09/26/2022 Scheduled Telephone Family Medicine Kaylee Barakat Community [facility] Press Bucker [address] [place] [address] 09/26/2022 Office Visit Endocrinology Alberta Duque PA-C [address], [place] [address] 09/28/2022 Hem/Onc Treatment Hematology Oncology [place], Chair 1 Hem Onc [facility] [address] [facility] [address] 09/28/2022 Office Visit Pharmacy Pharmacist1, [facility] [address] [facility] [place] [address] 09/28/2022 Office Visit Pulmonary Vivian Phillips CRNP [address] [place] [address] 10/04/2022 Home Visit [facility] July Poe, RN [address] [place] [address] 10/13/2022 Office Visit Family Medicine Brianne Pal PARominaC [address] [place] [address] 12/06/2022 Office Visit Gastroenterology Lyssa Stout CRNP 132 [facility] [place] [address] 12/08/2022 Office Visit Hematology Oncology Tono Sanchez MD 200 [facility] [address] 02/10/2023 Office Visit Sleep Disorders Love Francisco, DO 132 [facility] [place] [address] 03/01/2023 PulmDiagnostic Pulmonary Function [place], Pft [address] [facility] [place] [address] Scheduled Procedures Name Priority Associated Diagnoses Date/Ti [...] this encounter Medical Devices Implanted Type Area Epic Beacon Analyst Device Identifier Shelf Expiration Date Model / Serial / Lot Microtech Sure Clip Implanted:Qty: 2 on 06/03/2020 by Janis Hatch DO at OR [facility] Clip N/A: Colon 04/21/2022 [facility]-F-26-2 35-C-R / / [id number] documented as of this encounter Additional Health Concerns Infection Onset Date Last Indicated Resolved Time MRSA 09/17/2022 09/17/2022 documented as of this encounter Advance Directives Documents on File Type Date Recorded Patient Rn Liaison Expl anation Advance Directives and Living Will 04/29/2021 ADVANCE DIRECTIVE / LIVING WILL LIVING WILL AND HEALTH CARE POA Power of Financial Analyst Accountant 04/29/2021 POWER OF A [facility] C[facility] [...] the patient have Health Care Power of Financial Analyst Accountant? No Code Status History Code Status Date Activated Date Inactivated Comments Full Code 12/27/2021 2:50 PM 12/27/2021 8:02 PM This order reflects the patients wishes and were consensually agreed upon. Question Answer Comments Discussion of Advance Directives occurred with: Not Discussed Does the patient have a Living Will? No Does the patient have Health Care Power of Financial Analyst Accountant? No Full Code 03/31/2021 8:57 PM 04/03/2021 [...] Syed Bustos Spouse Emergency Contact Care Teams Petrography Teacher Relationship Specialty Start Date End Date Vanita Dunn MD [address] [place] [facility] [place] [address] PCP - General Family Medicine 03/16/21 documented as of this encounter
--- OUTSIDE RECORDS SUMMARY | 2023-05-10 17:42 | External Medical Summary | Summary of Care ---
Author Name Unknown Organization [facility] Address [place] [address] Care Team Providers Care Hoisting Laborer Name Role Phone Vanita Dunn MD Primary Care Provid er Reason for Visit * Reason Onset Date Comments [facility]: Maintenance 09/19/2022 Encounter Details Date Type Department Care Team Description 09/19/2022 Telephone [facility], [facility] [address] [place] [address] Jerod Kamini [address] [place] [address] [facility]: Maintenance Allergies Active Allergy Reactions Severity Noted Date Comments Adhesive Tape Itching 04/29/2020 Penicillins Rash 02/12/2008 Penicillin G 07/20/2018 Perflutren Protein A Microsph 2019 Definity-lower back pain documented as of this encounter (statuses as of 09/19/2022) Medications Medication Sig Dispensed Refills Start Date End Date Status nystatin (NYSTOP) 566533 UNIT/GM powder Apply topically to affected area 3 times a day. 60 g 1 10/16/2019 Active Dexcom G6 Golf Sales Associate Device Use as directed. To test blood sugars 4 times a day Dx E11.9 1 Each 0 09/14/2020 Active Dexcom G6 Transmitter Use as directed. To test blood sugars 4 times a day. Change every 90 days. Dx E11.9 1 Each 3 09/14/2020 Active OneTouch Verio In Vitro Strip (Glucose Blood) TESTING once daily 100 Strip 3 10/29/2020 Active OneTouch Delica Plus [id number] TESTING once daily 100 Each 3 10/29/2020 [...] as of this encounter (statuses as of 09/19/2022) Active Problems Problem Noted Date Hypertensive heart [...] as of this encounter (statuses as of 09/19/2022) Resolved Problems Problem Noted Date Resolved Date [...] pain 01/24/2012 01/17/2017 Genetic Sleep Disorder Research Other*[id number] 05/13/2011 04/07/2016 Obstructive sleep apnea 01/18/2011 12/27/19 [...] as of this encounter (statuses as of 09/19/2022) Immunizations Name Administration Dates Next Due COVID-19 [...] 3:55 PM EST Incoming call from Miley Mayer at [facility]. Patient looks fine for admission. Will [...] out and fax to Miley Mcneill @ [facility] at [phone]. Thank you! Kamini Newsome American Indian Studies Professor [facility] [email or web address] documented in this encounter Plan of Treatment Upcoming Encounters Date Type Specialty Care Team Description 09/20/2022 Home Visit Family Medicine Kaylee Barakat, Community Health Strap Setter [address] [place] [address] 09/26/2022 Office Visit Endocrinology Alberta Duque PA-C [address] [place] [address] 09/28/2022 Hem/Onc Treatment Hematology Oncology [place], Chair [address] [address] 09/28/2022 Office Visit Pharmacy Pharmacist1, [facility] [address] [place] [address] 09/28/2022 Office Visit [facility]monary [facility] [address] 10/04/2022 [facility] Poe[facility] [address] 10/13/2022 Office Visit Family Medicine Brianne Pal PA-C [address] [place] [address] 12/06/2022 Office Visit [facility] [place] [address] 12/08/2022 Office Visit Hematology Oncology Tono Sanchez MD [address] [place] [address] 02/10/2023 Office Visit Sleep Disorders Love Francisco, [address] [place] [address] 03/01/2023 PulmDiagnostic Pulmonary Function West, Pft [address] [place] [address] Scheduled Procedures Name Priority Associated Diagnoses Date/Ti [...] 09/15/2022 09/15/2021, 06/12, 04/01/2021, Additional history exists DIABETES-HGBA1C EVERY 6 MONTHS 11/16/2022 05/19/2022, 01/24/2022, 08/19/2021, Additional history exists Alb / Creat [...] Medical Devices Implanted Type Area Concrete Pipe Maker Device Identifier Shelf Expiration Date Model / Serial / Lot Microtech Sure Clip Implanted:Qty: 2 on 06/03/2020 by Janis Hatch DO at OR [facility] Clip N/A: Colon 04/21/2022 [facility]-F-26-2 35-C-R / / [id number] documented as of this encounter Additional Health Concerns Infection Onset Date Last Indicated Resolved Time MRSA 09/17/2022 09/17/2022 documented as of this encounter Advance Directives Documents on File Type Date Recorded Patient Cradle Slide Maker Expl anation Advance Directives and Living Will 04/29/2021 ADVANCE DIRECTIVE / LIVING WILL LIVING WILL AND HEALTH CARE POA Power of Food And Beverage Analyst 04/29/2021 POWER OF A TTORNEY HEALTH [...] the patient have Health Care Power of Food And Beverage Analyst? No Code Status History Code Status Date Activated Date Inactivated Comments Full Code 12/27/2021 2:50 PM 12/27/2021 8:02 PM This order reflects the patients wishes and were consensually agreed upon. Question Answer Comments Discussion of Advance Directives occurred with: Not Discussed Does the patient have a Living Will? No Does the patient have Health Care Power of Food And Beverage Analyst? No Full Code 03/31/2021 8:57 PM [...] File Name Relationship [facility] Communication Syed Bustos Spouse Emergency Contact Care Teams Hoisting Laborer Relationship Specialty Start Date End Date Vanita Dunn MD [address] [place] [address] PCP - General Family Medicine 03/16/21 documented as of this encounter
--- OUTSIDE RECORDS SUMMARY | 2023-05-10 17:42 | External Medical Summary | Summary of Care ---
Author Name Unknown Organization [place] [address] Care Team Providers Care Elementary Science Teacher Name Role Phone Vanita Dunn MD Primary Care Provid er Reason for Visit * Reason Onset Date Comments Advice 09/20/2022 Encounter Details Date Type Department Care Team Description 09/20/2022 Telephone [facility] [address] [place] [address] Vanita Dunn MD [address] [place] [address] Advice Allergies Active Allergy Reactions Severity Noted Date Comments Adhesive Tape Itching 04/29/2020 Penicillins Rash 02/12/2008 Penicillin G 07/20/2018 Perflutren Protein A Microsph 2019 Definity-lower back pain documented as of this encounter (statuses as of 09/20/2022) Medications Medication Sig Dispensed Refills Start Date End Date Status nystatin (NYSTOP) 485231 UNIT/GM powder Apply topically to affected area 3 times a day. 60 g 1 10/16/2019 Active Dexcom G6 Launch Commander [employer] Device Use as directed. To test blood sugars 4 times a day Dx E11.9 1 Each 0 09/14/2020 Active Dexcom G6 Transmitter Use as directed. To test blood sugars 4 times a day. Change every 90 days. Dx E11.9 1 Each 3 09/14/2020 Active OneTouch Verio In Vitro Strip (Glucose Blood) TESTING once daily 100 Strip 3 10/29/2020 Active OneTouch Delica Plus [id number] TESTING once daily 100 Each 3 10/29/2020 [...] ([facility]) 35 Units at breakfast, 39 Units before lunch, 45 Units before supper 120 mL 3 07/28/2022 Active Lantus SoloStar 100 UNIT/ML Subcutaneous Solution Pen-injectorIndicati ons:Type 2 diabetes mellitus with hemoglobin A1c goal of less than 8.0% ([facility]) Inject 50 Units under the [...] pain 01/24/2012 01/17/2017 Genetic Sleep Disorder Research Other*[id number] 05/13/2011 04/07/2016 Obstructive sleep apnea 01/18/2011 12/27/19 [...] Miscellaneous Notes * Telephone Encounter - THAD Leyva - 09/20/2022 10:54 AM EST Patient called stating she needs paperwork signed by Dr Dunn for a SNF. Please advise documented in this encounter Plan of Treatment Upcoming Encounters Date Type Specialty Care Team Description 09/20/2022 Home Visit Family Medicine Kaylee Barakat, Community Health Mapping Editor [address] [place] [address] 09/26/2022 Office Visit Endocrinology Alberta Duque PA-C [address] [place] [address] 09/28/2022 Hem/Onc Treatment Hematology Oncology [place], Chair [address] [address] 09/28/2022 Office Visit Pharmacy Pharmacist1, [facility] [address] [place] [address] 09/28/2022 Office Visit Pulmonary Vivian Phillips CRNP 132 [facility] [place] [address] 10/04/2022 Home Visit [facility] July Poe RN 132 [facility] [place] [address] 10/13/2022 Office Visit Family Medicine Brianne Pal PA-C [address] [place] [address] 12/06/2022 Office Visit Gastroenterology Lyssa Stout CRNP 132 [facility] [place] [address] 12/08/2022 Office Visit Hematology Oncology Tono Sanchez MD 200 [place] [address] 02/10/2023 Office Visit Sleep Disorders Love Francisco DO 132 [facility] [place] [address] 03/01/2023 PulmDiagnostic Pulmonary Function West, Pft 132 [facility] [place] [address] Scheduled Procedures Name Priority Associated Diagnoses Date/Ti [...] this encounter Medical Devices Implanted Type Area Conservator Artifacts Device Identifier Shelf Expiration Date Model / Serial / Lot Microtech Sure Clip Implanted:Qty: 2 on 06/03/2020 by Janis Hatch DO at OR [facility] Clip N/A: Colon 04/21/2022 [facility]-F-26-2 35-C-R / / [id number] documented as of this encounter Additional Health Concerns Infection Onset Date Last Indicated Resolved Time MRSA 09/17/2022 09/17/2022 documented as of this encounter Advance Directives Documents on File Type Date Recorded Patient Exhibit Display Representative Expl anation Advance Directives and Living Will 04/29/2021 ADVANCE DIRECTIVE / LIVING WILL LIVING WILL AND HEALTH CARE POA Power of Single Pass Soil Stabilizer Operator 04/29/2021 POWER OF A TTORNEY HEALTH [...] the patient have Health Care Power of Single Pass Soil Stabilizer Operator? No Code Status History Code Status Date Activated Date Inactivated Comments Full Code 12/27/2021 2:50 PM 12/27/2021 8:02 PM This order reflects the patients wishes and were consensually agreed upon. Question Answer Comments Discussion of Advance Directives occurred with: Not Discussed Does the patient have a Living Will? No Does the patient have Health Care Power of Single Pass Soil Stabilizer Operator? No Full Code 03/31/2021 8:57 PM [...] Syed Bustos Spouse Emergency Contact Care Teams Elementary Science Teacher Relationship Specialty Start Date End Date Vanita Dunn MD [address] [place] [address] PCP - General Family Medicine 03/16/21 documented as of this encounter
--- OUTSIDE RECORDS SUMMARY | 2023-05-10 17:42 | External Medical Summary | Summary of Care ---
Author Name Unknown Organization [facility] Address [facility] [place] [address] Care Team Providers Care Application Support Analyst Name Role Phone Vanita Dunn MD Primary Care Provid er Reason for Visit * Reason Onset Date Comments [facility]: Maintenance 09/20/2022 Encounter Details Date Type Department Care Team Description 09/20/2022 Telephone [facility], [facility] [address] [facility] [place] [address] [facility], Nurse [address] [place] [address] [facility]: Maintenance Allergies Active Allergy Reactions Severity Noted Date Comments Adhesive Tape Itching 04/29/2020 Penicillins Rash 02/12/2008 Penicillin G 07/20/2018 Perflutren Protein A Microsph 2019 Definity-lower back pain documented as of this encounter (statuses as of 09/20/2022) Medications Medication Sig Dispensed Refills Start Date End Date Status nystatin (NYSTOP) 146845 UNIT/GM powder Apply topically to affected area 3 times a day. 60 g 1 10/16/2019 Active Dexcom G6 Diesel Engine Pipe Fitter Device Use as directed. To test blood sugars 4 times a day Dx E11.9 1 Each 0 09/14/2020 Active Dexcom G6 Transmitter Use as directed. To test blood sugars 4 times a day. Change every 90 days. Dx E11.9 1 Each 3 09/14/2020 Active OneTouch Verio In Vitro Strip (Glucose Blood) TESTING once daily 100 Strip 3 10/29/2020 Active OneTouch Delica Plus [id number] TESTING once daily 100 Each 3 10/29/2020 [...] a fpc plan is made -continue lexapro Impaired mobility [...] pain 01/24/2012 01/17/2017 Genetic Sleep Disorder Research Other*[id number] 05/13/2011 04/07/2016 Obstructive sleep apnea 01/18/2011 12/27/19 [...] Telephone Encounter - Kamini Newsome - 09/20/2022 10:27 AM EST Incoming call from patient. Requesting update on SNF placement. Explained process of getting patient into SNF. Explained that [facility] will most likely take as long as paperwork is filedout and sent it. No possible beds until monday. Requested patient call PCP office to confirm paperwork came through and will be completed and faxed to miley at [facility]. Miley's contact information is in previous encounter Kamini Newsome Supervisor [employer] [facility] [email or web address] * Telephone Encounter - Va Carney RN - 09/20/2022 10:25 AM EST Received call from pt who is requesting to speak with whomever it is who is working on getting her into a intermediate. Transferred call to Marc Newsome renal case manager. Va ANTOINE, RN [facility] Intake Triage Coordinator [phone] documented in this encounter Plan of Treatment Upcoming Encounters Date Type Specialty Care Team Description 09/20/2022 Home Visit Family Medicine Kaylee Barakat, Community Health Physician Chief Of Pathology [address] [place], [place] [id number] 09/26/2022 Office Visit Endocrinology Alberta Duque PA-C [address] [place], [place] [address] 09/28/2022 Hem/Onc Treatment Hematology Oncology [place], Chair 1 Hem Onc Scenery [address] [address] 09/28/2022 Office Visit Pharmacy Pharmacist1, [facility] 200 [place] [address] 09/28/2022 Office Visit Pulmonary Vivian Phillips CRNP [address] [place] [address] 10/04/2022 Home Visit [facility] July Poe RN [address] [place] [address] 10/13/2022 Office Visit Family Medicine Brianne Pal PARominaC [address] [place] [address] 12/06/2022 Office Visit Gastroenterology Lyssa Stout, ZAK 132 [facility] [place] [address] 12/08/2022 Office Visit Hematology Oncology Tono Sanchez MD 200 [place] [address] 02/10/2023 Office Visit Sleep Disorders Love Francisco, DO [address] [place] [address] 03/01/2023 PulmDiagnostic Pulmonary Function West, Pft [address] [place] [address] Scheduled Procedures Name Priority Associated Diagnoses Date/Ti [...] this encounter Medical Devices Implanted Type Area Pipeline Construction Inspector Device Identifier Shelf Expiration Date Model / Serial / Lot Microtech Sure Clip Implanted:Qty: 2 on 06/03/2020 by aJnis Hatch DO at OR [facility] Clip N/A: Colon 04/21/2022 [facility]-F-26-2 35-C-R / / [id number] documented as of this encounter Additional Health Concerns Infection Onset Date Last Indicated Resolved Time MRSA 09/17/2022 09/17/2022 documented as of this encounter Advance Directives Documents on File Type Date Recorded Patient Charter Pilot Expl anation Advance Directives and Living Will 04/29/2021 ADVANCE DIRECTIVE / LIVING WILL LIVING WILL AND HEALTH CARE POA Power of Chief Relay Tester 04/29/2021 POWER OF A TTORNEY HEALTH [...] the patient have Health Care Power of Chief Relay Tester? No Code Status History Code Status Date Activated Date Inactivated Comments Full Code 12/27/2021 2:50 PM 12/27/2021 8:02 PM This order reflects the patients wishes and were consensually agreed upon. Question Answer Comments Discussion of Advance Directives occurred with: Not Discussed Does the patient have a Living Will? No Does the patient have Health Care Power of Chief Relay Tester? No Full Code 03/31/2021 8:57 PM [...] on File Name Relationship Healthcare Agent [facility] Communication Syed Bustos Spouse Emergency Contact Care Teams Application Support Analyst Relationship Specialty Start Date End Date Vanita Dunn MD [address] [place] [address] PCP - General Family Medicine 03/16/21 documented as of this encounter
--- OUTSIDE RECORDS SUMMARY | 2023-05-10 17:42 | External Medical Summary | Summary of Care ---
Author Name Unknown Organization [place] [address] Care Team Providers Care Hot Knife Cutter Name Role Phone Vanita Dunn MD Primary Care Provid er Encounter Details Date Type Department Care Team Description 09/19[facility]20[facility] [address] [facility] [place], [place] [id number] Tom Poe PA-C [address] [facility] [place] [address] Allergies Active Allergy Reactions Severity Noted Date Comments Adhesive Tape Itching 04/29/2020 Penicillins Rash 02/12/2008 Penicillin G 07/20/2018 Perflutren Protein A Microsph 2019 Definity-lower back pain documented as of this encounter (statuses as of 09/19/2022) Medications Medication Sig Dispensed Refills Start Date End Date Status nystatin (NYSTOP) 442259 UNIT/GM powder Apply topically to affected area 3 times a day. 60 g 1 10/16/2019 Active Dexcom G6 Hydroblaster Device Use as directed. To test blood sugars 4 times a day Dx E11.9 1 Each 0 09/14/2020 Active Dexcom G6 Transmitter Use as directed. To test blood sugars 4 times a day. Change every 90 days. Dx E11.9 1 Each 3 09/14/2020 Active OneTouch Verio In Vitro Strip (Glucose Blood) TESTING once daily 100 Strip 3 10/29/2020 Active OneTouch Delica Plus [id number] TESTING once daily 100 Each 3 10/29/2020 [...] hemoglobin A1c goal of less than 7.0% ([facility]) USE TO INJECT INSULIN FOUR TIMES [...] medical terminology plan is made -continue lexapro Impaired mobility [...] pain 01/24/2012 01/17/2017 Genetic Sleep Disorder Research Other*[id number] 05/13/2011 04/07/2016 Obstructive sleep apnea 01/18/2011 12/27/19 [...] encounter Miscellaneous Notes * Telephone Encounter - RT Leon - 09/19/2022 12:09 PM EST Outgoing call to patient. Verified name and . Patient informed of results and had no further questions. Done. * Telephone Encounter - Tom Poe PA-C - 09/19/2022 11:42 AM EST Please let patient know she tested positive for MRSA, which is sensitive to the antibiotics she is on. Continue the course and follow-up with PCP in 3 days. ER if acutely worsens documented in this encounter Plan of Treatment Upcoming Encounters Date Type Specialty Care Team Description 09/20/2022 Home Visit Family Medicine Kaylee Barakat, Community Health Processing Inspector [address] [place] [address] 09/26/2022 Office Visit Endocrinology Alberta Duque PA-C [address] [place] [address] 09/28/2022 Hem/Onc Treatment Hematology Oncology [place], Chair 1 Hem Onc [facility] [address] [place] [address] 09/28/2022 Office Visit Pharmacy Pharmacist1, [facility] [address] [place] [address] 09/28/2022 Office Visit Pulmonary Vivian Phillips CRNP 132 [facility] [place] [address] 10/04/2022 Home Visit [facility] July Poe RN [address] [place] [address] 10/13/2022 Office Visit Family Medicine Brianne Pal PA-C [address] [place] [address] 12/06/2022 Office Visit Gastroenterology Lyssa Stout CRNP [address] [place] [address] 12/08/2022 Office Visit Hematology Oncology Tono Sanchez MD [address] [place] [address] 02/10/2023 Office Visit Sleep Disorders Love Francisco DO 132 [place] [address] 03/01/2023 PulmDiagnostic Pulmonary Function West, Pft 132 [facility] [place] [address] Scheduled Procedures Name Priority Associated Diagnoses Date/Ti [...] this encounter Medical Devices Implanted Type Area Tin Tie Machine Operator Automatic Device Identifier Shelf Expiration Date Model / Serial / Lot Microtech Sure Clip Implanted:Qty: 2 on 06/03/2020 by Janis Hatch DO at OR [facility] Clip N/A: Colon 04/21/2022 [facility]-F-26-2 35-C-R / / [id number] documented as of this encounter Additional Health Concerns Infection Onset Date Last Indicated Resolved Time MRSA 09/17/2022 09/17/2022 documented as of this encounter Advance Directives Documents on File Type Date Recorded Patient Director Of Rotc Expl anation Advance Directives and Living Will 04/29/2021 ADVANCE DIRECTIVE / LIVING WILL LIVING WILL AND HEALTH CARE POA Power of Car Rental Manager 04/29/2021 POWER OF A TTORNEY HEALTH [...] patient have Health Care Power of Car Rental Manager? No Code Status History Code Status Date Activated Date Inactivated Comments Full Code 12/27/2021 2:50 PM 12/27/2021 8:02 PM This order reflects the patients wishes and were consensually agreed upon. Question Answer Comments Discussion of Advance Directives occurred with: Not Discussed Does the patient have a Living Will? No Does the patient have Health Care Power of Car Rental Manager? No Full Code 03/31/2021 8:57 PM [...] Syed Bustos Spouse Emergency Contact Care Teams Hot Knife Cutter Relationship Specialty Start Date End Date Vanita Dunn MD [address] [place] [address] PCP - General Family Medicine 03/16/21 documented as of this encounter
--- OUTSIDE RECORDS SUMMARY | 2023-05-10 17:42 | External Medical Summary | Summary of Care ---
Author Name Unknown Organization [facility] Address [facility] [place] [address] Care Team Providers Care Express Clerk Name Role Phone Vanita Dunn MD Primary Care Provid er Reason for Visit * Reason Onset Date Comments [facility]: Maintenance 09/20/2022 Encounter Details Date Type Department Care Team Description 09/20/2022 Telephone [facility], [facility] [address] [facility] [place] [address] [facility], Nurse [address] [place] [address] [facility]: Maintenance Allergies Active Allergy Reactions Severity Noted Date Comments Adhesive Tape Itching 04/29/2020 Penicillins Rash 02/12/2008 Penicillin G 07/20/2018 Perflutren Protein A Microsph 2019 Definity-lower back pain documented as of this encounter (statuses as of 09/20/2022) Medications Medication Sig Dispensed Refills Start Date End Date Status nystatin (NYSTOP) 943796 UNIT/GM powder Apply topically to affected area 3 times a day. 60 g 1 10/16/2019 Active Dexcom G6 Stone Belt Sander Device Use as directed. To test blood sugars 4 times a day Dx E11.9 1 Each 0 09/14/2020 Active Dexcom G6 Transmitter Use as directed. To test blood sugars 4 times a day. Change every 90 days. Dx E11.9 1 Each 3 09/14/2020 Active OneTouch Verio In Vitro Strip (Glucose Blood) TESTING once daily 100 Strip 3 10/29/2020 Active OneTouch Delica Plus [id number] TESTING once daily 100 Each 3 10/29/2020 [...] pain 01/24/2012 01/17/2017 Genetic Sleep Disorder Research Other*[id number] 05/13/2011 04/07/2016 Obstructive sleep apnea 01/18/2011 12/27/19 [...] patient into SNF. Explained that [facility] will most likely take as long as paperwork is filedout and sent it. No possible beds until monday. Requested patient call PCP office to confirm paperwork came through and will be completed and faxed to miley at [facility]. Miley's contact information is in previous encounter Kamini Newsome Test Tech [facility] [email or web address] Telephone Encounter - Va Carney RN - 09/20/2022 10:25 AM EST Received call from pt who is requesting to speak with whomever it is who is working on getting her into a penitentiary. Transferred call to Marc Newsome family service caseworker. Va ANTOINE, RN [facility] Intake Triage Coordinator [phone] documented in this encounter Plan of Treatment Upcoming Encounters Date Type Specialty Care Team Description 09/20/2022 Home Visit Family Medicine Kaylee Barakat, Community Health Bond Trader [address] [place], [place] [id number] 09/26/2022 Office Visit Endocrinology Alberta Duque PA-C [address], [place] [phone] 09/28/2022 Hem/Onc Treatment Hematology Oncology [place], Chair 1 Hem Onc Scenery [address] [place] [facility] [place] [address] 09/28/2022 Office Visit Pharmacy Pharmacist1, [facility] [address] [place] [address] 09/28/2022 Office Visit Pulmonary Vivian Phillips CRNP [address] [place] [address] 10/04/2022 Home Visit [facility] July Poe RN [address] [place] [address] 10/13/2022 Office Visit Family Medicine Brianne Pal PARominaC [address] [place] [address] 12/06/2022 Office Visit Gastroenterology Lyssa Stout, ZAK [address] [facility] [place] [address] 12/08/2022 Office Visit Hematology Oncology Tono Sanchez MD [address] [place] [address] 02/10/2023 Office Visit Sleep Disorders Love Francisco, DO [address] [place] [address] 03/01/2023 PulmDiagnostic Pulmonary Function [place], Pft [address] [place] [address] Scheduled Procedures Name Priority Associated Diagnoses Date/Ti [...] this encounter Medical Devices Implanted Type Area Estate Planner Device Identifier Shelf Expiration Date Model / Serial / Lot Microtech Sure Clip Implanted:Qty: 2 on 06/03/2020 by Janis Hatch DO at OR H Clip N/A: Colon 04/21/2022 [facility]-F-26-2 35-C-R / / [id number] documented as of this encounter Additional Health Concerns Infection Onset Date Last Indicated Resolved Time MRSA 09/17/2022 09/17/2022 documented as of this encounter Advance Directives Documents on File Type Date Recorded Patient Color Corrector Expl anation Advance Directives and Living Will 04/29/2021 ADVANCE DIRECTIVE / LIVING WILL LIVING WILL AND HEALTH CARE POA Power of Double Head Machine Operator 04/29/2021 POWER OF A TTORNEY [...] the patient have Health Care Power of Double Head Machine Operator? No Code Status History Code Status Date Activated Date Inactivated Comments Full Code 12/27/2021 2:50 PM 12/27/2021 8:02 PM This order reflects the patients wishes and were consensually agreed upon. Question Answer Comments Discussion of Advance Directives occurred with: Not Discussed Does the patient have a Living Will? No Does the patient have Health Care Power of Double Head Machine Operator? No Full Code 03/31/2021 8:57 [...] File Name Relationship [facility] Communication Syed Bustos Spouse Emergency Contact Care Teams Express Clerk Relationship Specialty Start Date End Date Vanita Dunn MD [address] [place] [address] PCP - General Family Medicine 03/16/21 documented as of this encounter
--- OUTSIDE RECORDS SUMMARY | 2023-05-10 17:43 | External Medical Summary | Summary of Care ---
Author Name Unknown Organization [place] [address] Care Team Providers Care Snowblower Mechanic Name Role Phone Vanita Dunn MD Primary Care Provid er Encounter Details Date Type Department Care Team Description [facility] [address] [facility] [place] [phone] Tom Poe PA-C [address] [facility] [place] [address] Allergies Active Allergy Reactions Severity Noted Date Comments Adhesive Tape Itching 04/29/2020 Penicillins Rash 02/12/2008 Penicillin G 07/20/2018 Perflutren Protein A Microsph 2019 Definity-lower back pain documented as of this encounter (statuses as of 09/19/2022) Medications Medication Sig Dispensed Refills Start Date End Date Status nystatin (NYSTOP) 743169 UNIT/GM powder Apply topically to affected area 3 times a day. 60 g 1 10/16/2019 Active Dexcom G6 Wheel Presser Device Use as directed. To test blood sugars 4 times a day Dx E11.9 1 Each 0 09/14/2020 Active Dexcom G6 Transmitter Use as directed. To test blood sugars 4 times a day. Change every 90 days. Dx E11.9 1 Each 3 09/14/2020 Active OneTouch Verio In Vitro Strip (Glucose Blood) TESTING once daily 100 Strip 3 10/29/2020 Active OneTouch Delica Plus [id number] TESTING once daily 100 Each 3 10/29/2020 [...] hemoglobin A1c goal of less than 7.0% ([facility]) USE TO INJECT INSULIN FOUR [...] pain 01/24/2012 01/17/2017 Genetic Sleep Disorder Research Other*[id number] 05/13/2011 04/07/2016 Obstructive sleep apnea 01/18/2011 12/27/19 [...] encounter Miscellaneous Notes * Telephone Encounter - Tom Poe PA-C [...] Visit Family Medicine Kaylee Barakat, Community Health Plastic Parts Fabricator [address] [place] [facility] [place] [address] 09/26/2022 Office Visit Endocrinology Alberta Duque PA-C [address] [place] [address] 09/28/2022 Hem/Onc Treatment Hematology Oncology [place], Chair 1 Hem Onc [facility] [address] [place] [address] 09/28/2022 Office Visit Pharmacy Pharmacist1, [facility] [address] [place] [address] 09/28/2022 Office Visit Pulmonary Vivian Phillips CRNP [address] [facility] [place] [address] 10/04/2022 Home Visit [facility] July Poe RN [address] [facility] [place] [address] 10/13/2022 Office Visit Family Medicine Brianne Pal PA-C [address] [place] [address] 12/06/2022 Office Visit Gastroenterology Lyssa Stout CRNP [address] [facility] [place] [address] 12/08/2022 Office Visit Hematology Oncology Tono Sanchez MD [address] [place] [address] 02/10/2023 Office Visit Sleep Disorders Love Francisco DO [address] [facility] [place] [address] 03/01/2023 PulmDiagnostic Pulmonary Function West, Pft [address] [place] [address] Scheduled Procedures Name Priority Associated Diagnoses Date/Ti [...] this encounter Medical Devices Implanted Type Area Physician Office Rep Device Identifier Shelf Expiration Date Model / Serial / Lot Microtech Sure Clip Implanted:Qty: 2 on 06/03/2020 by Janis Hatch DO at OR [facility] Clip N/A: Colon 04/21/2022 [facility]-F-26-2 35-C-R / / [id number] documented as of this encounter Additional Health Concerns Infection Onset Date Last Indicated Resolved Time MRSA 09/17/2022 09/17/2022 documented as of this encounter Advance Directives Documents on File Type Date Recorded Patient Death Surveys Coder Expl anation Advance Directives and Living Will 04/29/2021 ADVANCE DIRECTIVE / LIVING WILL LIVING WILL AND HEALTH CARE POA Power of Account Development Manager 04/29/2021 POWER OF A TTORNEY HEALTH [...] the patient have Health Care Power of Account Development Manager? No Code Status History Code Status Date Activated Date Inactivated Comments Full Code 12/27/2021 2:50 PM 12/27/2021 8:02 PM This order reflects the patients wishes and were consensually agreed upon. Question Answer Comments Discussion of Advance Directives occurred with: Not Discussed Does the patient have a Living Will? No Does the patient have Health Care Power of Account Development Manager? No Full Code 03/31/2021 8:57 PM [...] Syed Bustos Spouse Emergency Contact Care Teams Snowblower Mechanic Relationship Specialty Start Date End Date Vanita Dunn MD [address] [place] [address] PCP - General Family Medicine 03/16/21 documented as of this encounter
--- OUTSIDE RECORDS SUMMARY | 2023-05-10 17:43 | External Medical Summary | Summary of Care ---
Author Name Unknown Organization [facility] Address [place] [address] Care Team Providers Care Building Cleaning Supervisor Name Role Phone Vanita Dunn MD Primary Care Provid er Reason for Visit * Reason Onset Date Comments [facility]: Maintenance 09/19/2022 Encounter Details Date Type Department Care Team Description 09/19/2022 Telephone [facility], [facility] [address] [facility] [place] [address] Jerod Kamini [address] [place] [address] [facility]: Maintenance Allergies Active Allergy Reactions Severity Noted Date Comments Adhesive Tape Itching 04/29/2020 Penicillins Rash 02/12/2008 Penicillin G 07/20/2018 Perflutren Protein A Microsph 2019 Definity-lower back pain documented as of this encounter (statuses as of 09/19/2022) Medications Medication Sig Dispensed Refills Start Date End Date Status nystatin (NYSTOP) 144598 UNIT/GM powder Apply topically to affected area 3 times a day. 60 g 1 10/16/2019 Active Dexcom G6 Lemon Grower Device Use as directed. To test blood sugars 4 times a day Dx E11.9 1 Each 0 09/14/2020 Active Dexcom G6 Transmitter Use as directed. To test blood sugars 4 times a day. Change every 90 days. Dx E11.9 1 Each 3 09/14/2020 Active OneTouch Verio In Vitro Strip (Glucose Blood) TESTING once daily 100 Strip 3 10/29/2020 Active OneTouch Delica Plus [id number] TESTING once daily 100 Each 3 10/29/2020 [...] senior living plan is made -continue lexapro Impaired mobility [...] pain 01/24/2012 01/17/2017 Genetic Sleep Disorder Research Other*[id number] 05/13/2011 04/07/2016 Obstructive sleep apnea 01/18/2011 12/27/19 [...] Telephone Encounter - Kamini Newsome - 09/19/2022 10:34 AM EST Call placed to [facility]. Transferred to admissions. In with admin. [facility] for Miley requesting a call back Incoming call from Miley at [facility]. Referral information was misplaced. CW faxed information again to facility. Noted it will be Short Term care at this time. Kamini Newsome Research Worker Kitchen [facility] [email or web address] documented in this encounter Plan of Treatment Upcoming Encounters Date Type Specialty Care Team Description 09/20/2022 Home Visit Family Medicine Kaylee Barakat, Community Health Payment Processor [address] [place] [address] 09/26/2022 Office Visit Endocrinology Alberta Duque PA-C [address] [place] [address] 09/28/2022 Hem/Onc Treatment Hematology Oncology [place], Chair 1 Hem Onc [facility] [address] [place] [address] 09/28/2022 Office Visit Pharmacy Pharmacist1, [facility] [address] [place] [address] 09/28/2022 Office Visit Pulmonary Vivian Phillips CRNP [address] [place] [address] 10/04/2022 Home Visit [facility] July Poe RN [address] [place] [address] 10/13/2022 Office Visit Family Medicine Brianne Pal PAChadwick [address] [place] [address] 12/06/2022 Office Visit Gastroenterology Lyssa Stout CRNP [address] [place] [address] 12/08/2022 Office Visit Hematology Oncology Tono Sanchez MD 200 [place] [address] 02/10/2023 Office Visit Sleep Disorders Love Francisco DO [address] [place] [address] 03/01/2023 PulmDiagnostic Pulmonary Function [place], Pft [address] [place] [address] Scheduled Procedures Name Priority Associated Diagnoses Date/Ti [...] this encounter Medical Devices Implanted Type Area Candy Dipper Hand Device Identifier Shelf Expiration Date Model / Serial / Lot Microtech Sure Clip Implanted:Qty: 2 on 06/03/2020 by Janis Hatch DO at OR H Clip N/A: Colon 04/21/2022 [facility]-F-26-2 35-C-R / / [id number] documented as of this encounter Additional Health Concerns Infection Onset Date Last Indicated Resolved Time MRSA 09/17/2022 09/17/2022 documented as of this encounter Advance Directives Documents on File Type Date Recorded Patient Music Theory Teacher Expl anation Advance Directives and Living Will 04/29/2021 ADVANCE DIRECTIVE / LIVING WILL LIVING WILL AND HEALTH CARE POA Power of Director Day Care Center 04/29/2021 POWER OF A TTORNEY HEALTH CARE [...] patient have Health Care Power of Director Day Care Center? No Code Status History Code Status Date Activated Date Inactivated Comments Full Code 12/27/2021 2:50 PM 12/27/2021 8:02 PM This order reflects the patients wishes and were consensually agreed upon. Question Answer Comments Discussion of Advance Directives occurred with: Not Discussed Does the patient have a Living Will? No Does the patient have Health Care Power of Director Day Care Center? No Full Code 03/31/2021 8:57 PM 04/03/2021 [...] on File Name Relationship Healthcare Agent [facility] p Communication Syed Bustos Spouse Emergency Contact Care Teams Building Cleaning Supervisor Relationship Specialty Start Date End Date Vanita Dunn MD [address] [place] [address] PCP - General Family Medicine 03/16/21 documented as of this encounter
--- OUTSIDE RECORDS SUMMARY | 2023-05-10 17:44 | External Medical Summary | Summary of Care ---
Author Name Unknown Organization [facility] Address [place] [address] Care Team Providers Care Train Controller Name Role Phone Vanita Dunn MD Primary Care Provid er Reason for Visit * Reason Onset Date Comments [facility]: Maintenance 09/19/2022 Encounter Details Date Type Department Care Team Description 09/19/2022 Telephone [facility], [facility] [address] [facility] [place] [address] Jerod Kamini [address] [place] [address] [facility]: Maintenance Allergies Active Allergy Reactions Severity Noted Date Comments Adhesive Tape Itching 04/29/2020 Penicillins Rash 02/12/2008 Penicillin G 07/20/2018 Perflutren Protein A Microsph 2019 Definity-lower back pain documented as of this encounter (statuses as of 09/19/2022) Medications Medication Sig Dispensed Refills Start Date End Date Status nystatin (NYSTOP) 667811 UNIT/GM powder Apply topically to affected area 3 times a day. 60 g 1 10/16/2019 Active Dexcom G6 Wrist Closer Device Use as directed. To test blood sugars 4 times a day Dx E11.9 1 Each 0 09/14/2020 Active Dexcom G6 Transmitter Use as directed. To test blood sugars 4 times a day. Change every 90 days. Dx E11.9 1 Each 3 09/14/2020 Active OneTouch Verio In Vitro Strip (Glucose Blood) TESTING once daily 100 Strip 3 10/29/2020 Active OneTouch Delica Plus [id number] TESTING once daily 100 Each 3 10/29/2020 [...] pain 01/24/2012 01/17/2017 Genetic Sleep Disorder Research Other*[id number] 05/13/2011 04/07/2016 Obstructive sleep apnea 01/18/2011 12/27/19 [...] 09/19/2022 10:34 AM EST Call placed to [facility]. Transferred to admissions. In with admin. [facility] for Miley requesting a call back Kamini Newsome Apron Worker [facility] [email or web address] documented in this encounter Plan of Treatment Upcoming Encounters Date Type Specialty Care Team Description 09/20/2022 Home Visit Family Medicine Kaylee Barakat, Community Health Validation Leader [address] [place] [address] 09/26/2022 Office Visit Endocrinology Alberta Duque PA-C [address] [place] [address] 09/28/2022 Hem/Onc Treatment Hematology Oncology [place], Chair 1 Hem Onc [facility] [address] [place] [address] 09/28/2022 Office Visit Pharmacy Pharmacist1, [facility] [address] [place] [address] 09/28/2022 Office Visit Pulmonary Vivian Phillips CRNP [address] [place] [address] 10/04/2022 Home Visit [facility] July Poe RN [address] [place] [address] 10/13/2022 Office Visit Family Medicine Brianne Pal PA-C [address] [place] [address] 12/06/2022 Office Visit Gastroenterology Lyssa Stout CRNP [address] [place] [address] 12/08/2022 Office Visit Hematology Oncology Tono Sanchez MD 200 [place] [address] 02/10/2023 Office Visit Sleep Disorders Love Francisco, [address] [place] [address] 03/01/2023 PulmDiagnostic Pulmonary Function [place], Pft [address] [place] [address] Scheduled Procedures Name Priority Associated Diagnoses Date/Ti [...] this encounter Medical Devices Implanted Type Area Bending Machine Operator Device Identifier Shelf Expiration Date Model / Serial / Lot Microtech Sure Clip Implanted:Qty: 2 on 06/03/2020 by Janis Hatch DO at OR [facility] Clip N/A: Colon 04/21/2022 [facility]-F-26-2 35-C-R / / [id number] documented as of this encounter Additional Health Concerns Infection Onset Date Last Indicated Resolved Time MRSA 09/17/2022 09/17/2022 documented as of this encounter Advance Directives Documents on File Type Date Recorded Patient Transmission Assembler Expl anation Advance Directives and Living Will 04/29/2021 ADVANCE DIRECTIVE / LIVING WILL LIVING WILL AND HEALTH CARE POA Power of Livestock Broker 04/29/2021 POWER OF A TTORNEY HEALTH CARE [...] the patient have Health Care Power of Livestock Broker? No Code Status History Code Status Date Activated Date Inactivated Comments Full Code 12/27/2021 2:50 PM 12/27/2021 8:02 PM This order reflects the patients wishes and were consensually agreed upon. Question Answer Comments Discussion of Advance Directives occurred with: Not Discussed Does the patient have a Living Will? No Does the patient have Health Care Power of Livestock Broker? No Full Code 03/31/2021 8:57 PM 04/03/2021 [...] Agents on File Name Relationship [facility] Communication Syed Bustos Spouse Emergency Contact Care Teams Train Controller Relationship Specialty Start Date End Date Vanita Dunn MD [address] [place], [place] [id number] PCP - General Family Medicine 03/16/21 documented as of this encounter
--- OUTSIDE RECORDS SUMMARY | 2023-05-10 17:44 | External Medical Summary | Summary of Care ---
Author Name Unknown Organization [facility] Address [place] [address] Care Team Providers Care Candy Wrapping Machine Operator Name Role Phone Vanita Dunn MD Primary Care Provid er Reason for Visit * Reason Onset Date Comments [facility]: Maintenance 09/19/2022 Encounter Details Date Type Department Care Team Description 09/19/2022 Telephone [facility], [facility] [address] [facility] [place] [address] [facility], Nurse [facility] [address] [facility] [place] [address] [facility]: Maintenance Allergies Active Allergy Reactions Severity Noted Date Comments Adhesive Tape Itching 04/29/2020 Penicillins Rash 02/12/2008 Penicillin G 07/20/2018 Perflutren Protein A Microsph 2019 Definity-lower back pain documented as of this encounter (statuses as of 09/19/2022) Medications Medication Sig Dispensed Refills Start Date End Date Status nystatin (NYSTOP) 007099 UNIT/GM powder Apply topically to affected area 3 times a day. 60 g 1 10/16/2019 Active Dexcom G6 Unmanned Aircraft Systems Roboticist Device Use as directed. To test blood sugars 4 times a day Dx E11.9 1 Each 0 09/14/2020 Active Dexcom G6 Transmitter Use as directed. To test blood sugars 4 times a day. Change every 90 days. Dx E11.9 1 Each 3 09/14/2020 Active OneTouch Verio In Vitro Strip (Glucose Blood) TESTING once daily 100 Strip 3 10/29/2020 Active OneTouch Delica Plus [id number] TESTING once daily 100 Each 3 10/29/2020 [...] than 8.0% ([facility]) 35 Units at breakfast, 39 Units before lunch, 45 Units before supper 120 mL 3 07/28/2022 Active Lantus SoloStar 100 UNIT/ML Subcutaneous Solution Pen-injectorIndicati ons:Type 2 diabetes mellitus with hemoglobin A1c goal of less than 8.0% ([facility]) Inject 50 Units under the [...] current situation. 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 Chart reviewed and records were faxed artur Mayer at [facility] on 09/15. Sent to Kamini Newsome to follow up with patient at [phone] Michelle Vyas. RN [facility] director education [phone] documented in this encounter Plan of Treatment Upcoming Encounters Date Type Specialty Care Team Description 09/20/2022 Home Visit Family Medicine Kaylee Barakat, Community Health School Admissions Representative [address] [place] [address] 09/26/2022 Office Visit Endocrinology Alberta Duque PA-C [address] [place] [address] 09/28/2022 Hem/Onc Treatment Hematology Oncology [place], Chair 1 Hem Onc [facility] [address] [place] [address] 09/28/2022 Office Visit Pharmacy Pharmacist1, [facility] [address] [place] [address] 09/28/2022 Office Visit Pulmonary Vivian Phillips CRNP 132 [facility] [place] [address] 10/04/2022 Home Visit [facility] July Poe RN [address] [facility] [place] [address] 10/13/2022 Office Visit Family Medicine Brianne Pal PA-C [address] [place] [address] 12/06/2022 Office Visit [facility]astroenterology [facility]out [facility] [place] [address] 12/08/2022 Office Visit Hematology Oncology Tono Sanchez MD 200 [place] [address] 02/10/2023 Office Visit Sleep Disorders Love Francisco DO [facility] [place] [address] 03/01/2023 PulmDiagnostic Pulmonary Function [place], Pft [address] [facility] [place] [address] Scheduled Procedures Name Priority Associated Diagnoses Date/Ti [...] this encounter Medical Devices Implanted Type Area Newsagent Device Identifier Shelf Expiration Date Model / Serial / Lot Microtech Sure Clip Implanted:Qty: 2 on 06/03/2020 by Janis Hatch DO at OR [facility] Clip N/A: Colon 04/21/2022 [facility]-F-26-2 35-C-R / / [id number] documented as of this encounter Additional Health Concerns Infection Onset Date Last Indicated Resolved Time 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 No Code Status History Code Status Date Activated Date Inactivated Comments Full Code 12/27/2021 2:50 PM 12/27/2021 8:02 PM This order reflects the patients wishes and were consensually agreed upon. Question Answer Comments Discussion of Advance Directives occurred with: Not Discussed Does the patient have a Living Will? No Does the patient have Health Care Power of Washer [place]? No Full Code 03/31/2021 8:57 PM 04/03/2021 [...] Syed Bustos Spouse Emergency Contact Care Teams Candy Wrapping Machine Operator Relationship Specialty Start Date End Date Vanita Dunn MD [address] [place], [place] [id number] PCP - General Family Medicine 03/16/21 documented as of this encounter
--- OUTSIDE RECORDS SUMMARY | 2023-05-10 17:45 | External Medical Summary | Summary of Care ---
Author Name Unknown Organization [place] [address] Care Team Providers Care Officer Lieutenant Name Role Phone Vanita Dunn MD Primary Care Provid er Reason for Visit * Reason Comments Excellence Consultant Documentation Encounter Details Date Type Department Care Team Description 09/15/2022 Excellence Consultant [facility] [place] [address] [place] [address] Preethi Rivera, BELT POLISHER [address] [place] [address] Allergies Active Allergy Reactions Severity Noted Date Comments Adhesive Tape Itching 04/29/2020 Penicillins Rash 02/12/2008 Penicillin G 07/20/2018 Perflutren Protein A Microsph 2019 Definity-lower back pain documented as of this encounter (statuses as of 09/15/2022) Medications Medication Sig Dispensed Refills Start Date End Date Status nystatin (NYSTOP) 067429 UNIT/GM powder Apply topically to affected area 3 times a day. 60 g 1 10/16/2019 Active Dexcom G6 Computer System Validation Specialist Device Use as directed. To test blood sugars 4 times a day Dx E11.9 1 Each 0 09/14/2020 Active Dexcom G6 Transmitter Use as directed. To test blood sugars 4 times a day. Change every 90 days. Dx E11.9 1 Each 3 09/14/2020 Active OneTouch Verio In Vitro Strip (Glucose Blood) TESTING once daily 100 Strip 3 10/29/2020 Active OneTouch Delica Plus [id number] TESTING once daily 100 Each 3 10/29/2020 [...] as directed 60 Each 5 10/06/2021 Active Mupirocin 2 % External Ointment (Bactroban) Apply to the right side of the nose twice daily 22 g 0 11/08/2021 Active Potassium Chloride ER 10 MEQ Oral [...] TO ACCESSING. 30 g 0 02/10/2022 Active Lactulose 10 GM/15ML Oral Solution (Constulose) Take 30mL by mouth 3 TIMES daily, titrate dose for effect of 3-5 bowel movements daily 1892 mL 3 02/18/2022 Active Trulicity 4.5 MG/0.5ML Subcutaneous Solution Pen-injector [...] and 1 Puff before bedtime. 0 Active methylPREDNISolone 4 MG Oral Tablet Therapy Pack (Medrol Dosepack) follow package directions 21 Tablet 0 08/28/2022 Active Furosemide 20 MG Oral Tablet (Lasix) TAKE 1 TABLET BY MOUTH DAILY as needed for lower extremity swelling 90 Tablet 3 09/09/2022 Active Hospital, Clinic, or Other Facility Administered [...] as of this encounter (statuses as of 09/15/2022) Active Problems Problem Noted Date Hypertensive heart [...] as of this encounter (statuses as of 09/15/2022) Resolved Problems Problem Noted Date Resolved Date [...] pain 01/24/2012 01/17/2017 Genetic Sleep Disorder Research Other*[id number] 05/13/2011 04/07/2016 Obstructive sleep apnea 01/18/2011 12/27/19 [...] as of this encounter (statuses as of 09/15/2022) Immunizations Name Administration Dates Next Due COVID-19 [...] encounter Progress Notes * CHRISSY Velázquez - 09/15/2022 11:02 AM EST This worker was consulted by Kaylee Barakat [facility]. Short Term Placement/ Caregivers. Chart was reviewed. This worker contacted [facility] Retail Salesworker Aleyda @ . Aleyda reported to this worker that she is new to Shaina's case as she just started yesterday. Aleyda did make contact through telephone with Shaina this morning and spoke to her about caregivers. Aleyda is going to be contactingdifferent agencies that could provide the care to Shaina. Shaina approved changing agencies as long as she will receive the care needed. This worker contacted Miley at [facility] @ [phone]. Miley reported that they do have short term bed available and to send the records over to review Shaina's situation. Miley will be in contact with this worker when she receives the fax. This worker contacted PATTY Suárez to assist withsending the medical records for placement. Retail Salesworker [facility] - Aleyda direct phone number [phone] for future communications. CHRISSY Velázquez [facility] documented in this encounter Plan of Treatment Upcoming Encounters Date Type Specialty Care Team Description 09/20/2022 Home Visit Family Medicine Kaylee Barakat, Community Health Crew Scheduler [address] [place] [address] 09/26/2022 Office Visit Endocrinology Alberta Duque PA-C [address] [place] [address] 09/28/2022 Hem/Onc Treatment Hematology Oncology [place], Chair [address] [address] 09/28/2022 Office Visit Pharmacy Pharmacist1, [facility] Sp [address] [place] [address] 09/28/2022 Office Visit Pulmonary Vivian Phillips CRNP [address] [place] [address] 10/04/2022 Home Visit [facility] July Poe, RN [address] [place] [address] 10/13/2022 Office Visit Family Medicine Brianne Pal [place] [address] [place] [address] 12/06/2022 Office Visit [facility]enterology [facility]out CRNP [facility] [place] [address] 12/08/2022 Office Visit Hematology Oncology Tono Sanchez MD [address] [place] [address] 02/10/2023 Office Visit Sleep Disorders Love Francisco, DO [address] [place] [address] 03/01/2023 PulmDiagnostic Pulmonary Function [place], Pft [address] [place] [address] Scheduled Procedures Name Priority Associated Diagnoses Date/Ti [...] this encounter Medical Devices Implanted Type Area Lime Slaker Device Identifier Shelf Expiration Date Model / Serial / Lot Microtech Sure Clip Implanted:Qty: 2 on 06/03/2020 by Janis Hatch DO at OR [facility] Clip N/A: Colon 04/21/2022 [facility]-F-26-2 35-C-R / / [id number] documented as of this encounter Advance Directives Documents on File Type Date Recorded Patient Formation Testing Operator Expl anation Advance Directives and Living Will 04/29/2021 ADVANCE DIRECTIVE / LIVING WILL LIVING WILL AND HEALTH CARE POA Power of Business Lawyer 04/29/2021 POWER [facility] A [facility] [...] patient have Health Care Power of Business Lawyer? No Code Status History Code Status Date Activated Date Inactivated Comments Full Code 12/27/2021 2:50 PM 12/27/2021 8:02 PM This order reflects the patients wishes and were consensually agreed upon. Question Answer Comments Discussion of Advance Directives occurred with: Not Discussed Does the patient have a Living Will? No Does the patient have Health Care Power of Business Lawyer? No Full Code 03/31/2021 8:57 PM 04/03/2021 [...] Syed Bustos Spouse Emergency Contact Care Teams Officer Lieutenant Relationship Specialty Start Date End Date Vanita Dunn MD [address] [facility] [place] [address] PCP - General Family Medicine 03/16/21 documented as of this encounter
--- OUTSIDE RECORDS SUMMARY | 2023-05-10 17:45 | External Medical Summary | Summary of Care ---
Author Name Unknown Organization [place] [address] Care Team Providers Care Residence Life Coordinator Name Role Phone Vanita Dunn MD Primary Care Provid er Reason for Visit * Reason Comments eRx-Medication Refill Encounter Details Date Type Department Care Team Description 09/13/[address] [facility] [address] [place] [address] Vanita Dunn MD [address] [place] [address] Allergies Active Allergy Reactions Severity Noted Date Comments Adhesive Tape Itching 04/29/2020 Penicillins Rash 02/12/2008 Penicillin G 07/20/2018 Perflutren Protein A Microsph 2019 Definity-lower back pain documented as of this encounter (statuses as of 09/16/2022) Medications Medication Sig Dispensed Refills Start Date End Date Status nystatin (NYSTOP) 551688 UNIT/GM powder Apply topically to affected area 3 times a day. 60 g 1 0 Active Dexcom G6 Diamond Sander Device Use as directed. To test blood sugars 4 times a day Dx E11.9 1 Each 0 1 Active Dexcom G6 Transmitter Use as directed. To test blood sugars 4 times a day. Change every 90 days. Dx E11.9 1 Each 3 1 Active OneTouch Verio In Vitro Strip (Glucose Blood) TESTING once daily 100 Strip 3 1 Active OneTouch Delica Plus Ecqpuk50H TESTING once daily 100 Each 3 1 [...] as directed 60 Each 5 2 Active Mupirocin 2 % External Ointment (Bactroban) Apply to the right side of the nose twice daily 22 g 0 2 Active Potassium Chloride ER 10 MEQ [...] than 8.0% ([facility]) Inject 50 Units under the skin [...] follow package directions 21 Tablet 0 2 Active Furosemide 20 MG [...] 1892 mL 3 2 09/16/19 23 Discontinued Hospital, Clinic, or Other Facility [...] as of this encounter (statuses as of 09/16/2022) Active Problems Problem Noted Date Hypertensive heart [...] as of this encounter (statuses as of 09/16/2022) Resolved Problems Problem Noted Date Resolved Date [...] pain 01/24/2012 01/17/2017 Genetic Sleep Disorder Research Other*[id number] 05/13/2011 04/07/2016 Obstructive sleep apnea 01/18/2011 12/27/19 [...] as of this encounter (statuses as of 09/16/2022) Immunizations Name Administration Dates Next Due COVID-19 [...] * Telephone Encounter - ZAK Bolton - 09/16/2022 8:59 AM ESTSigned Prescriptions: Disp Refills Lactulose 10 GM/15ML Oral Solution (Constu*1200 mL0 Sig: TAKE 30G (45ML) BY MOUTH 3 TIMES DAILY Authorizing Provider: LYSSA SAXENA * Telephone Encounter - Vanita Dunn MD - 09/16/2022 8:11 AM EST Pending Prescriptions: Disp Refills Lactulose 10 GM/15ML Oral Solution [Pharma*1,200 *0 Sig: TAKE 30G (45ML) BY MOUTH 3 TIMES DAILY * Telephone Encounter - Jose [facility] - 09/15/2022 10:24 AM EST Pending Prescriptions: Disp Refills Lactulose 10 GM/15ML Oral Solution [Pharma*1,200 *0 Sig: TAKE 30G (45ML) BY MOUTH 3 TIMES DAILY * Telephone Encounter - Jose [facility] - 09/15/2022 10:24 AM EST Refill pharmacists currently not authorized to approve refills for this class of medication per refill protocol. Please approve if appropriate. Thanks, Jose Hong, PharmD Clinical Pharmacist Telepharmacy [phone] 09/15/2022, 10:24 AM documented in this encounter Plan of Treatment Upcoming Encounters Date Type Specialty Care Team Description 09/20/2022 Home Visit Family Medicine Kaylee Barakat, Community Health Medical Transcriber [address] [place] [address] 09/26/2022 Office Visit Endocrinology Alberta Duque PA-C [address] [place] [address] 09/28/2022 Hem/Onc Treatment Hematology Oncology [place], Chair 1 Hem Onc [facility] [address] [place] [address] 09/28/2022 Office Visit Pharmacy Pharmacist1, [facility] [address] [facility] [place] [address] 09/28/2022 Office Visit Pulmonary Vivian Phillips CRNP 132 [facility] [place] [address] 10/04/2022 [facility] Visit [facility] July [facility]oe RN [facility] [place] [address] 10/13/2022 Office Visit Family Medicine Brianne Pal PA-C [address] [place] [address] 12/06/2022 Office Visit Gastroenterology Lyssa Saxena CRNP [facility] [place] [address] 12/08/2022 Office Visit Hematology Oncology Tono Sanchez MD 200 [facility], [place] [address] 02/10/2023 Office Visit Sleep Disorders Love Francisco DO [address] [place] [address] 03/01/2023 PulmDiagnostic Pulmonary Function [place], Pft [address] [place] [address] Scheduled Procedures Name Priority Associated Diagnoses Date/Ti [...] this encounter Medical Devices Implanted Type Area Dry Cleaner Helper Device Identifier Shelf Expiration Date Model / Serial / Lot Microtech Sure Clip Implanted:Qty: 2 on 06/03/2020 by Janis Hatch DO at OR [facility] Clip N/A: Colon 04/21/2022 [facility]-F-26-2 35-C-R / / [id number] documented as of this encounter Advance Directives Documents on File Type Date Recorded Patient Set Up Operator Expl anation Advance Directives and Living Will 04/29/2021 ADVANCE DIRECTIVE / LIVING WILL LIVING WILL AND HEALTH CARE POA Power of Casing In Line Setter 04/29/2021 POWER [facility] A [facility] [...] the patient have Health Care Power of Casing In Line Setter? No Code Status History Code Status Date Activated Date Inactivated Comments Full Code 12/27/2021 2:50 PM 12/27/2021 8:02 PM This order reflects the patients wishes and were consensually agreed upon. Question Answer Comments Discussion of Advance Directives occurred with: Not Discussed Does the patient have a Living Will? No Does the patient have Health Care Power of Casing In Line Setter? No Full Code 03/31/2021 8:57 PM 04/03/2021 [...] Agents on File Name Relationship Healthcare Agent [facility] p Communication Syed Bustos Spouse Emergency Contact Care Teams Residence Life Coordinator Relationship Specialty Start Date End Date Vanita Dunn MD [address] [place] [facility] [place] [address] PCP - General Family Medicine 03/16/21 documented as of this encounter
--- OUTSIDE RECORDS SUMMARY | 2023-05-10 17:45 | External Medical Summary ---
Author Name Unknown Address Unknown Organization K01:[facility] - [address] [place] [address] Laboratory Report Ordering Provider Test Date Status KATYA POON 09/17/2022 16:46:53 Final Observation Date Value Abnormality Reference (Units ) Status Bacteria identified in Unspecified specimen by Culture 09/17/2022 16:46:53 [id number]^STAPHY LOCOCCUS AUREUS MRSA Abnormal Final Performing Location [facility] [address] [place] [id number] Ordering Provider Test Date Status KATYA POON 09/17/2022 16:46:53 Final Observation Date Value Abnormality Reference (Units ) Status Clindamycin 09/17/2022 16:46:53 <=0.25 Susceptible Final Erythromycin susceptibility 09/17/2022 16:46:53 >=8 Resistant Final Oxacillinsusceptibility 09/17/2022 16:46:53 >=4 Resistant Final Performing Location [facility] [address] [facility] [address]
--- OUTSIDE RECORDS SUMMARY | 2023-05-10 17:45 | External Medical Summary | Summary of Care ---
Author Name Unknown Organization [place] [address] Care Team Providers Care Bonding And Composite Fabricator Name Role Phone Vanita Dunn MD Primary Care Provid er Reason for Referral * Evaluate & Treat - Unlimited Visits (Within 3 days (urgent)) - Pending Review Specialty Diagnoses / Procedures Referred By Evangelina jeter Referred To Contact Podiatry Diagnoses Cellulitis of toe of right foot Vicki Darnell PA-C [address] [place] [address] Referral ID Status Reason Start Date Expiration Date Visits Requested Visits Authorized [id number] Pending Review Specialty Services Required 09/17/[phone] Question Answer Referral Priority Within 3 days (urgent) Which condition are you referring this patient for? Wound or ulcer Reason for Visit * Reason Comments Infection Right great toe Encounter Details Date Type Department Care Team Description 09/17/2022 [facility] Visit [facility] [address] [place] [address] [address] Vicki Darnell PA-C [address] [place] [address] Cellulitis of toe of right foot*; Open toe wound, initial encounter; DM type 2 with diabetic peripheral neuropathy (HCC) Allergies Active Allergy Reactions Severity Noted Date Comments Adhesive Tape Itching 04/29/2020 Penicillins Rash 02/12/2008 Penicillin G 07/20/2018 Perflutren Protein A Microsph 2019 Definity-lower back pain documented as of this encounter (statuses as of 09/17/2022) Medications Medication Sig Dispensed Refills Start Date End Date Status nystatin (NYSTOP) 516803 UNIT/GM powder Apply topically to affected area 3 times a day. 60 g 1 0 Active Dexcom G6 Lead Generation Representative Device Use as directed. To test blood sugars 4 times a day Dx E11.9 1 Each 0 1 Active Dexcom G6 Transmitter Use as directed. To test blood sugars 4 times a day. Change every 90 days. Dx E11.9 1 Each 3 1 Active iXpertTouch Verio In Vitro Strip (Glucose Blood) TESTING once daily 100 Strip 3 1 Active iXpertTouch Delica Plus [id number] TESTING once daily 100 Each 3 1 [...] less than 8.0% ([facility]) Inject 50 Units under [...] TIMES DAILY 1200 mL 0 3 Active Doxycycline Hyclate 100 MG Oral CapsuleIndications :Cellulitis of toe of right foot,Open toe wound, initial encounter Take 1 Capsule by mouth in the morning and 1 Capsule before bedtime. Do all this for 10 days. Until gone.. 20 Capsule 0 3 023 Active Mupirocin 2 % External Ointment (Bactroban)Indicat ions:Cellulitis of toe of right foot,Open toe wound, initial encounter Apply topically to affected area 2 times a day for 14 days. 22 g 0 3 023 Active Mupirocin 2 % External Ointment (Bactroban) Apply to the right side of the nose twice daily 22 g 0 2 023 Discontinued methylPREDNISolone 4 MG Oral [...] as of this encounter (statuses as of 09/17/2022) Active Problems Problem Noted Date Hypertensive heart [...] as of this encounter (statuses as of 09/17/2022) Resolved Problems Problem Noted Date Resolved Date [...] pain 01/24/2012 01/17/2017 Genetic Sleep Disorder Research Other*[id number] 05/13/2011 04/07/2016 Obstructive sleep apnea 01/18/2011 12/27/19 [...] as of this encounter (statuses as of 09/17/2022) Immunizations Name Administration Dates Next Due COVID-19 [...] Sign Reading Time Taken Comments Blood Pressure 112/80 09/17/2022 4:28 PM EST Pulse 66 09/17/2022 4:28 PM EST Temperature 36.9 C (98.4 F) 09/17/2022 4:28 PM ES T Respiratory Rate 22 09/17/2022 4:28 PM EST Oxygen Saturation 98% 09/17/2022 4:28 PM EST Inhaled Oxygen Concentration - - [...] this encounter Patient Instructions * Patient Instructions* Vicki Darnell PA-C - 09/17/2022 4:38 PM EST You were prescribed doxycyline. Take medication as directed. This drug may make you sunburn more easily. Use care if you will be in the sun. control pills and other hormone-based control may not work as well to prevent . Use some other kind of control also like a condom when taking this drug. DO NOT TAKE if or trying to become . It is best to avoid taking this drug at the same time as milk, dairy, or other products with calcium. This drug may not work as well. Do not take bismuth (Pepto-Bismol), calcium, iron, magnesium, zinc, multivitamins with minerals, colestipol, cholestyramine, didanosine, or antacids within 2 hours of this drug. Take all antibiotic even if symptoms improve sooner. Stopping early increases risk of antibiotic resistance and returning infection. Warm compresses multiple times a day. You may use ibuprofen and/or tylenol for pain. Follow-up sooner with PCP sooner or return to be evaluated with any change/worsening symptoms including worsening redness, warmth, fevers, chills or if symptoms persist. If any severe/acute worsening of symptoms develop, go to the ED. documented in this encounter Progress Notes * Vicki Darnell PA-C - 09/17/2022 4:31 PM EST HPI 67 year old female presents for evaluation of possible cellulitis. Patient was accompanied by Spouse. Location: right great toe Symptoms include: redness, swelling and pain Symptoms started 1 weeks ago Symptoms are: gradually worsening Patient denies: fever and chills Prior trauma or injury to the area? Yes, explain: "I banged it a couple times" Any prior history of similar symptoms? Yes, explain: I have had this before History of any type of resistant bacteria (i.e. MRSA, VRE, etc)? No Risk factors for MRSA? yes Any co-morbid conditions? Yes Modifying factors? Yes, explain: cleaned it out ROS: See HPI for pertinent positives and negatives. Review of patient's allergies indicates: Allergen Reactions Adhesive Tape Itching Pcn [Penicillins] Rash Penicillin G Perflutren Protein A Microsph Definity-lower back pain Current Outpatient Medications Medication Sig Dispense Refill Doxycycline Hyclate 100 MG Oral Capsule Take 1 Capsule by mouth in the morning and 1 Capsule before bedtime. Do all this for 10 days. Until gone.. 20 Capsule 0 Mupirocin 2 % External Ointment (Bactroban) Apply topically to affected area 2 times a day for 14 days. 22 g 0 nystatin (NYSTOP) 771780 UNIT/GM powder Apply topically to affected area 3 times a day. 60 g 1 Dexcom G6 Lead Generation Representative Device Use as directed. To test blood sugars 4 times a day Dx E11.9 1 Each 0 Dexcom G6 Transmitter Use as directed. To test blood sugars 4 times a day. Change every 90 days. Dx E11.9 1 Each 3 OneTouch Verio In Vitro Strip (Glucose Blood) TESTING once daily 100 Strip 3 OneTouch Delica Plus [id number] TESTING once daily 100 Each 3 Nitroglycerin [...] taking: Reported on 08/12/2022) 40 Tablet 0 Silver sulfADIAZINE 1 % [...] MOUTH 3 TIMES DAILY 1200 mL 0 Current Facility-Administered Medications Medication Dose Route Frequency Provider Last Rate Last Admin Albuterol Sulfate (Proventil) (2.5 MG/3ML) 0.083% inhalation solution 2.5 mg 2.5 mg Nebulizer PRN William J Morales, PA-C Albuterol Sulfate (Proventil) (5 MG/ML) 0.5% *conc* inhalation solution 2.5 mg 2.5 mg NebulizerPRN DEISY KelleyC Past Medical History: Diagnosis Date Anemia Anxiety and depression Arthritis Cerebral palsy (HCC) 01/24/2012 Chronic constipation Chronic diastolic (congestive) heart failure ([facility]) 09/13/2021 Chronic hypoxemic respiratory failure ([facility]) 04/08/2019 Chronic pain 03/27/2012 Cirrhosis of liver ([facility]) 11/20/2017 DDD (degenerative disc disease), lumbar DM [...] less than 8.0% ([facility]) 09/26/2013 ICD-10 update of inactive term Venous insufficiency 01/09/2009 duplicate Past Surgical History: Procedure Laterality Date BONE DEBRIDEMENT, FIRST 20 CM2 Right 04/16/2020 DEBRIDEMENT SKIN SUBCUTANEOUS TISSUE MUSCLE AND BONE performed by Josh Vazquez MD at [facility] DELIVERY 04/20/1982 COLONOSCOPY 04/21/2009 repeat in 10 years COLONOSCOPY, DIAGNOSTIC (RECTUM) 10/04/2016 normal bx, repeat 10 yrs/[facility] COLONOSCOPY, DIAGNOSTIC (RECTUM) N/A 06/03/2020 internal hemorrhoids/biopsies show adenomatous polyps/recall 5 years/COLONOSCOPY FLEXIBLE PROXIMAL DIAGNOSTIC performed by Janis Hatch DO at OR [facility] COLONOSCOPY, DIAGNOSTIC (RECTUM) 03/17/2020 poor prep / [facility] DENTAL SURGERY PROCEDURE NEC wisdom teeth x 4 DILATION AND CURETTAGE (D&C) EGD, FLEXIBLE, DIAGNOSTIC 10/04/2016 gastritis/[facility] EGD, FLEXIBLE, DIAGNOSTIC 01/11/2018 eso varices, retained food, repeat 1 yr/[facility] EGD, FLEXIBLE, DIAGNOSTIC N/A 06/03/2020 severe erosive esophagitis/non-bleeding grade II esophageal varices/gastritis/biopsies show inflammatory changes/repeat 3-4 months/ESOPHAGOGASTRODUODENOSCOPY (EGD), FLEXIBLE, TRANSORAL, DIAGNOSTIC per formed by Janis Hatch DO at OR [facility] EGD, FLEXIBLE, DIAGNOSTIC 11/27/2019 eso varices, portal hypertensive gastropathy, gastritis / [facility] EGD, FLEXIBLE, DIAGNOSTIC N/A 08/05/2020 large amount of food in stomach/repeat 1.5 years/ESOPHAGOGASTRODUODENOSCOPY (EGD), FLEXIBLE, TRANSORAL, DIAGNOSTIC performed by Janis Hatch DO at OR [facility] EGD, FLEXIBLE, DIAGNOSTIC N/A 03/10/2021 ESOPHAGOGASTRODUODENOSCOPY (EGD), FLEXIBLE, TRANSORAL, DIAGNOSTIC performed by Kris Blankenship MD at [facility] HYSTEROSCOPY W/BIOPSY AND/OR POLYPECTOMY W/WO D&C N/A 12/27/2021 HYSTEROSCOPY WITH BIOPSY AND/OR POLYPECTOMY WITH OR WITHOUT D&C performed by Concetta Khan MD at OR [facility] HYSTEROSCOPY W/BIOPSY AND/OR POLYPECTOMY W/WO D&C N/A 02/14/2022 HYSTEROSCOPY WITH BIOPSY AND/OR POLYPECTOMY WITH OR WITHOUT D&C performed by Concetta Khan MD at OR [facility] INSERT INTRAUTERINE DEVICE (IUD) N/A 02/14/2022 INSERTION OF INTRAUTERINE DEVICE performed by Concetta Khan MD at OR [facility] IR VENOUS ACCESS MEDIPORT 10/05/2020 PELVIS/HIP JOINT SURGERY NEC teenager aid in walking REMOVE CERVIX CONE W/LOOP ELECTRODE N/A 12/27/2021 LOOP ELECTROSURGERY EXCISION PROCEDURE performed by Concetta Khan MD at OR [facility] REPAIR/GRAFT ACHILLES TENDON age 40 aid in walking Social History Tobacco Use Smoking status: Never Smokeless tobacco: Never Substance Use Topics Alcohol use: Not Currently Comment: rare Vaping/E-Cigarette Use Vaping/E-Cigarette Use Never User Vaping/E-Cigarette Substances Nicotine No Other No Flavoring No THC No Cannabidiol (CBD) No Vaping/E-Cigarette Devices Disposable No Pre-filled or Refillable Cartridge No Refillable Tank No Pre-filled Pod No PHYSICAL EXAM BP 112/80 | Pulse 66 | Temp 36.9 C (98.4 F) (Tympanic) | Resp 22 | SpO2 98% General: awake, alert, no apparent distress Eyes: no proptosis, no periorbital inflammation or soft tissue edema, no orbital cellulitis Lungs: clear to auscultation, no rhonchi, no wheezes and no crackles Heart: regular rate, regular rhythm, no murmurs , no rubs and no gallops Skin of large toe with wound and erythema without warmth and with localized pain and tenderness. Induration is present. Drainage is present. Fluctuation is not present. Skin does not have peau d'orange appearance. Lymph nodes: Regional lymphadenopathy of foot is absent . With significant LE edema and lichenification. Toes are deviated inward. Poor hygiene. ASSESSMENT/PLAN Cellulitis of toe of right foot (Primary) - Doxycycline Hyclate 100 MG Oral Capsule; Take 1 Capsule by mouth in the morning and 1 Capsule before bedtime. Do all this for 10 days. Until gone.. - Mupirocin 2 % External Ointment (Bactroban); Apply topically to affected area 2 times a day for 14 days. - PODIATRY REFERRAL OP - CULTURE, WOUND, SUPERFICIAL, AEROBIC; Future; Expected date: 09/17/2022 - CULTURE, WOUND, SUPERFICIAL, AEROBIC Open toe wound, initial encounter - Doxycycline Hyclate 100 MG Oral Capsule; Take 1 Capsule by mouth in the morning and 1 Capsule before bedtime. Do all this for 10 days. Until gone.. - Mupirocin 2 % External Ointment (Bactroban); Apply topically to affected area 2 times a day for 14 days. - CULTURE, WOUND, SUPERFICIAL, AEROBIC; Future; Expected date: 09/17/2022 - CULTURE, WOUND, SUPERFICIAL, AEROBIC DM type 2 with diabetic peripheral neuropathy (HCC) Patient is at increased risk for MRSA and therefore will give doxycycline. To give mupirocin for wound care. No ulcerations seen. Recommend urgent podiatry care. Also to go to ED with worsening symptoms and/or new fever. Patient with feet without protection and exposed to the elements and with neuropathy and with LE edema and poor perfusion so it is not surprising that toes are not warm. Instructed patient on appropriate monitoring of erythema to determine response to antibiotics. To return if erythema not improving after 36 hours. Care instructions given. Additional instructions per patient instructions attached. Follow up with Podiatry in 3-5 days to follow up. Reasons to go to ED discussed with patient including but not limited to development of acute or severe symptoms. Patient agrees with the plan and demonstrates verbal understanding. Patient stable at the time of discharge. Patient instructed to contact Primary Care Provider for follow-up within 48-72 hours. Can return to[facility]venient Care if unable to reach Primary Care Provider and symptoms not improving. To the ER if worsening redness, pain, high fevers/shaking chills. The border of erythema was outlined to aid in assessing response to therapy if necessary. Patient goals for plan of care were discussed Patient Instructions You were prescribed doxycyline. Take medication as directed. This drug may make you sunburn more easily. Use care if you will be in the sun. control pills and other hormone-based control may not work as well to prevent . Use some other kind of control also like a condom when taking this drug. DO NOT TAKE if or trying to become . It is best to avoid taking this drug at the same time as milk, dairy, or other products with calcium. This drug may not work as well. Do not take bismuth (Pepto-Bismol), calcium, iron, magnesium, zinc, multivitamins with minerals, colestipol, cholestyramine, didanosine, or antacids within 2 hours of this drug. Take all antibiotic even if symptoms improve sooner. Stopping early increases risk of antibiotic resistance and returning infection. Warm compresses multiple times a day. You may use ibuprofen and/or tylenol for pain. Follow-up sooner with PCP sooner or return to be evaluated with any change/worsening symptoms including worsening redness, warmth, fevers, chills or if symptoms persist. If any severe/acute worsening of symptoms develop, go to the ED. Vicki Darnell PA-C [address] [place] [address] documented in this encounter Nursing Notes * Kenya Cloud LPN - 09/17/2022 4:23 PM EST Shaina Bustos is a 67 year old female who presents to walk-in clinic today complaining of Chief Complaint Patient presents with Infection Right great toe Main Symptoms: Patient thinks the big toe on her right foot is infected Cause: unknown How long: about a week Tried: Pt accompanied by: documented in this encounter Plan of Treatment Upcoming Encounters Date Type Specialty Care Team Description 09/20/2022 Home Visit Family Medicine Kaylee Barakat, [facility] Fireworks Display Specialist [address] [place] [address] 09/26/2022 Office Visit Endocrinology Alberta Duque PA-C [address], [place] [id number] 09/28/2022 Hem/Onc Treatment Hematology [place]cology [place], Chair [address] [facility] [address] [place] [address] 09/28/2022 Office Visit Pharmacy Pharmacist1, [facility] [address] [place] [address] 09/28/2022 Office Visit Pulmonary Vivian Phillips CRNP [address] [facility] [place] [address] 10/04/2022 [facility] Visit [facility] [place] [address] 10/13/2022 Office Visit Family Medicine Brianne Pal PA-C [address] [place] [address] 12/06/2022 Office Visit Gastroenterology Lyssa Stout CRNP [address] [facility] [place] [address] 12/08/2022 Office Visit Hematology Oncology Tono Sanchez MD [address] [place] [address] 02/10/2023 Office Visit Sleep Disorders Love Francisco, [address] [place] [address] 03/01/2023 PulmDiagnostic Pulmonary Function [place], Pft [address] [place] [address] Pending Results Name Type Priority Associated Diagnoses Date /Time CULTURE, WOUND, SUPERFICIAL, AEROBIC Lab Routine Cellulitis of toe of right foot Open toe wound, initial encounter 09/17/2022 4:46 PM EST Scheduled Orders Name Type Priority Associated Diagnoses Orde r Schedule CULTURE, WOUND, SUPERFICIAL, AEROBIC Lab Routine Cellulitis of toe of right foot Open toe wound, initial encounter Expected: 09/17/2022, Expires: 09/17/2023 Scheduled Procedures Name Priority Associated Diagnoses Date/Ti in ESOPHAGOGASTRODUODENOSCOPY ( EGD), FLEXIBLE, TRANSORAL, DIAGNOSTIC Recall Esophagitis COLONOSCOPY FLEXIBLE PROXIMAL DIAGNOSTIC Recall History of colonic polyps Scheduled Referrals Name Type Priority Associated Diagnoses Orde r Schedule PODIATRY REFERRAL OP Referral Within 3 days (urgent) Cellulitis of toe of right foot Ordered: 09/17/2022 Health Maintenance Due Date Last Done Comments [...] encounter Medical Devices Implanted Type Area Glass Presser Device Identifier Shelf Expiration Date Model / Serial / Lot Microtech Sure Clip Implanted:Qty: 2 on 06/03/2020 by Janis Hatch DO at OR [facility] Clip N/A: Colon 04/21/2022 [facility]-F-26-2 35-C-R / / [id number] documented as of this encounter Visit Diagnoses Diagnosis Cellulitis of toe of right foot- Primary Cellulitis and abscess of toe, unspecified Open toe wound, initial encounter DM type 2 with diabetic peripheral neuropathy (HCC) Type II or unspecified type diabetes mellitus with neurological manifestations, not stated as uncontrolled documented in this encounter Advance Directives Documents on File Type Date Recorded 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 No Code Status History Code Status Date Activated Date Inactivated Comments Full Code 12/27/2021 2:50 PM 12/27/2021 8:02 PM This order reflects the patients wishes and were consensually agreed upon. Question Answer Comments Discussion of Advance Directives occurred with: Not Discussed Does the patient have a Living Will? No Does the patient have Health Care Power of Dude Wrangler? No Full Code 03/31/2021 8:57 PM 04/03/2021 [...] Syed Bustos Spouse Emergency Contact Care Teams Bonding And Composite Fabricator Relationship Specialty Start Date End Date Vanita Dunn MD [address] [place] [address] PCP - General Family Medicine 03/16/21 documented as of this encounter
--- OUTSIDE RECORDS SUMMARY | 2023-05-10 17:45 | External Medical Summary | Summary of Care ---
Author Name Unknown Organization [facility] [place] [address] Care Team Providers Care Fiberglass Boat Parts Finisher Name Role Phone Vanita Dunn MD Primary Care Provid er Reason for Visit * Reason Onset Date Comments [facility]: Maintenance 09/15/2022 Encounter Details Date Type Department Care Team Description 09/15/2022 Telephone [facility], [facility] [address] [facility] [place] [address] Jerod Kamini [address] [place] [address] [facility]: Maintenance Allergies Active Allergy Reactions Severity Noted Date Comments Adhesive Tape Itching 04/29/2020 Penicillins Rash 02/12/2008 Penicillin G 07/20/2018 Perflutren Protein A Microsph 2019 Definity-lower back pain documented as of this encounter (statuses as of 09/15/2022) Medications Medication Sig Dispensed Refills Start Date End Date Status nystatin (NYSTOP) 370847 UNIT/GM powder Apply topically to affected area 3 times a day. 60 g 1 10/16/2019 Active Dexcom G6 Support Team Member Device Use as directed. To [...] Strip 3 10/29/2020 Active OneTouch Delica Plus [id number] TESTING once daily 100 Each 3 10/29/2020 [...] pain 01/24/2012 01/17/2017 Genetic Sleep Disorder Research Other*[id number] 05/13/2011 04/07/2016 Obstructive sleep apnea 01/18/2011 12/27/19 [...] * Telephone Encounter - Kamini Newsome - 09/15/2022 12:00 PM EST CW consulted by CHRISSY Rivera. Requesting pt records be faxed to [facility] at [facility] Att: Miley. The following documents were faxed with success: Proof of covid vax Demographics notes Labs Med list Kamini Jerod Business Support [facility] [email or web address] documented in this encounter Plan of Treatment Upcoming Encounters Date Type Specialty Care Team Description 09/20/2022 Home Visit Family Medicine Kaylee Barakat, [facility] Scientific Glass Blower [address] [facility] [address] 09/26/2022 Office Visit Endocrinology Alberta Duque PA-C [address] [place] [address] 09/28/2022 Hem/Onc Treatment Hematology Oncology [place], Chair [address] Hem On[address] [address] 09/28/2022 Office Visit Pharmacy Pharmacist1, [facility] [address] [facility] [place] [address] 09/28/2022 Office Visit Pulmonary Vivian Phillips CRNP [address] [facility] [place] [address] 10/04/2022 Home Visit [facility] July Poe RN [address] [facility] [place] [address] 10/13/2022 Office Visit Family Medicine Brianne Pal PA-C [address] [place] [address] 12/06/2022 Office Visit Gastroenterology Lyssa Stout CRNP [address] [place] [address] 12/08/2022 Office Visit Hematology Oncology Tnoo Sanchez MD [address] [place] [address] 02/10/2023 Office Visit Sleep Disorders Love Francisco DO [address] [place] [address] 03/01/2023 PulmDiagnostic Pulmonary Function [place], [address] [place] [address] Scheduled Procedures Name Priority Associated Diagnoses Date/Ti [...] this encounter Medical Devices Implanted Type Area Plant Taxonomist Device Identifier Shelf Expiration Date Model / Serial / Lot Microtech Sure Clip Implanted:Qty: 2 on 06/03/2020 by Janis Hatch DO at OR [facility] Clip N/A: Colon 04/21/2022 [facility]-F-26-2 35-C-R / / [id number] documented as of this encounter Advance Directives Documents on File Type Date Recorded 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 No Code Status History Code Status Date Activated Date Inactivated Comments Full Code 12/27/2021 2:50 PM 12/27/2021 8:02 PM This order reflects the patients wishes and were consensually agreed upon. Question Answer Comments Discussion of Advance Directives occurred with: Not Discussed Does the patient have a Living Will? No Does the patient have Health Care Power of Rotating Equipment Engineer? No Full Code 03/31/2021 8:57 PM [...] Agents on File Name Relationship Healthcare Agent [facility] p Communication Syed Bustos Spouse Emergency Contact Care Teams Fiberglass Boat Parts Finisher Relationship Specialty Start Date End Date Vanita Dunn MD [address] [place], [place] [id number] PCP - General Family Medicine 03/16/21 documented as of this encounter
--- OUTSIDE RECORDS SUMMARY | 2023-05-10 17:46 | External Medical Summary | Summary of Care ---
Author Name Unknown Organization [place] [address] Care Team Providers Care Farm Equipment Mechanic Apprentice Name Role Phone Vanita Dunn MD Primary Care Provid er Reason for Visit * Reason Comments Spray Pilot Documentation Encounter Details Date Type Department Care Team Description 09/14/2022 Spray Pilot [facility] [address] [place] [address] Preethi Rivera, MARKETING ROTATION ASSOCIATE [address] [place] [address] Allergies Active Allergy Reactions Severity Noted Date Comments Adhesive Tape Itching 04/29/2020 Penicillins Rash 02/12/2008 Penicillin G 07/20/2018 Perflutren Protein A Microsph 2019 Definity-lower back pain documented as of this encounter (statuses as of 09/14/2022) Medications Medication Sig Dispensed Refills Start Date End Date Status nystatin (NYSTOP) 588822 UNIT/GM powder Apply topically to affected area 3 times a day. 60 g 1 10/16/2019 Active Dexcom G6 Rn Chemical Dependency Device Use as directed. To test blood sugars 4 times a day Dx E11.9 1 Each 0 09/14/2020 Active Dexcom G6 Transmitter Use as directed. To test blood sugars 4 times a day. Change every 90 days. Dx E11.9 1 Each 3 09/14/2020 Active OneTouch Verio In Vitro Strip (Glucose Blood) TESTING once daily 100 Strip 3 10/29/2020 Active OneTouch Delica Plus [id number] TESTING once daily 100 Each 3 10/29/2020 [...] as of this encounter (statuses as of 09/14/2022) Active Problems Problem Noted Date Hypertensive heart [...] as of this encounter (statuses as of 09/14/2022) Resolved Problems Problem Noted Date Resolved Date [...] pain 01/24/2012 01/17/2017 Genetic Sleep Disorder Research Other*[id number] 05/13/2011 04/07/2016 Obstructive sleep apnea 01/18/2011 12/27/19 [...] as of this encounter (statuses as of 09/14/2022) Immunizations Name Administration Dates Next Due COVID-19 [...] encounter Progress Notes * CHRISSY Velázquez - 09/14/2022 10:19 AM EST This worker was consulted by Kaylee Barakat [facility]. Possible Short Term Placement / Caregivers. Chart was reviewed. This worker contacted Shaina at [phone]. Shaina stated to this worker that she was not feeling well today as her sinuses were all blocked up. Shaina reported that she is in need of assistance with personal care as she has not had any caregivers and has not been getting support when reaching out to the agency that provide the aides. Shaina is interested in short term care - Shaina is interested instaying near the area and was interested in [facility]. This worker contacted [facility] at [phone]. Was forwarded to director corporate sales Miley. Unable to contact at this time. This worker left a voicemail requesting return phone call to thisworker. This worker attempted to contact [facility] at [phone]. Unable to be transferred at this time. This worker gave clinical product specialist information for this worker to request return phone call to this worker. This worker consulted PATTY Suárez for assistance with short term placement. CHRISSY Velázquez Professional Architect [facility] documented in this encounter Plan of Treatment Upcoming Encounters Date Type Specialty Care Team Description 09/14/2022 PulmDiagnostic Pulmonary Function West, [address] [place] [address] 09/20/2022 Home Visit Family Medicine Kaylee Barakat, Community Health Auto Technician Mechanic [address], [place] [id number] 09/26/2022 Office Visit Endocrinology Alberta Duque PA-C [address], [place] [phone] 09/28/2022 Hem/Onc Treatment Hematology Oncology [place], Chair 1 Hem Onc [facility] [address] [place] [address] 09/28/2022 Office Visit Pharmacy Pharmacist1, [facility] [address] [place] [address] 09/28/2022 Office Visit Pulmonary Vivian Phillips CRNP [address] [place] [address] 10/04/2022 Home Visit [facility] July Poe, RN [address] [place] [address] [address] 10/13/2022 Office Visit Family Medicine Brianne Pal PA-C [address] [place] [address] 12/06/2022 Office Visit Gastroenterology Lyssa Stout CRNP [address] [place] [address] 12/08/2022 Office Visit Hematology Oncology Tono Sanchez MD 200 [place] [address] 02/10/2023 Office Visit Sleep Disorders Love Francisco DO [address] [place] [address] Scheduled Procedures Name Priority Associated Diagnoses Date/Ti [...] this encounter Medical Devices Implanted Type Area Lapel Padder Device Identifier Shelf Expiration Date Model / Serial / Lot Microtech Sure Clip Implanted:Qty: 2 on 06/03/2020 by Janis Hatch DO at OR [facility] Clip N/A: Colon 04/21/2022 [facility]-F-26-2 35-C-R / / [id number] documented as of this encounter Advance Directives Documents on File Type Date Recorded Patient Key Account Representative Expl anation Advance Directives and Living Will 04/29/2021 ADVANCE DIRECTIVE / LIVING WILL LIVING WILL AND HEALTH CARE POA Power of Marine Engineer Cpvec 04/29/2021 POWER OF A [facility] [...] patient have Health Care Power of Marine Engineer Cpvec? No Code Status History Code Status Date Activated Date Inactivated Comments Full Code 12/27/2021 2:50 PM 12/27/2021 8:02 PM This order reflects the patients wishes and were consensually agreed upon. Question Answer Comments Discussion of Advance Directives occurred with: Not Discussed Does the patient have a Living Will? No Does the patient have Health Care Power of Marine Engineer Cpvec? No Full Code 03/31/2021 8:57 PM 04/03/2021 [...] Syed Bustos Spouse Emergency Contact Care Teams Farm Equipment Mechanic Apprentice Relationship Specialty Start Date End Date Vanita Dunn MD [address], [place] [phone] PCP - General Family Medicine 03/16/21 documented as of this encounter
--- OUTSIDE RECORDS SUMMARY | 2023-05-10 17:46 | External Medical Summary | Summary of Care ---
Author Name Unknown Organization [place] [address] Care Team Providers Care Patient Safety Manager Name Role Phone Vanita Dunn MD Primary Care Provid er Encounter Details Date Type Department Care Team Description 09/13/2022 Home Visit Care Coordination [address] [place] [address] Kaylee Barakat, Community Health Chronic Care Nurse [address] [place] [address] Allergies Active Allergy Reactions Severity Noted Date Comments Adhesive Tape Itching 04/29/2020 Penicillins Rash 02/12/2008 Penicillin G 07/20/2018 Perflutren Protein A Microsph 2019 Definity-lower back pain documented as of this encounter (statuses as of 09/14/2022) Medications Medication Sig Dispensed Refills Start Date End Date Status nystatin (NYSTOP) 645662 UNIT/GM powder Apply topically to affected area 3 times a day. 60 g 1 10/16/2019 Active Dexcom G6 Curator Herbarium Device Use as directed. To test blood sugars 4 times a day Dx E11.9 1 Each 0 09/14/2020 Active Dexcom G6 Transmitter Use as directed. To test blood sugars 4 times a day. Change every 90 days. Dx E11.9 1 Each 3 09/14/2020 Active OneTouch Verio In Vitro Strip (Glucose Blood) TESTING once daily 100 Strip 3 10/29/2020 Active OneTouch Delica Plus [id number] TESTING once daily 100 Each 3 10/29/2020 [...] pain 01/24/2012 01/17/2017 Genetic Sleep Disorder Research Other*[id number] 05/13/2011 04/07/2016 Obstructive sleep apnea 01/18/2011 12/27/19 [...] Sign Reading Time Taken Comments Blood Pressure 118/68 09/13/2022 2:28 PM EST Pulse 77 09/13/2022 2:28 PM EST Temperature 36.6 C (97.8 F) 09/13/2022 2:28 PM ES T Respiratory Rate 18 09/13/2022 2:28 PM EST Oxygen Saturation 97% 09/13/2022 2:28 PM EST Inhaled Oxygen Concentration - - [...] this encounter Progress Notes * Kaylee Barakat, Community Health Chronic Care Nurse - 09/13/2022 2:00 PM EST Community Health Chronic Care Nurse Visit Date: 09/13/2022 Time: 2:18 PM Name: Shaina Bustos : 1955 Referral Source: vendor relationship manager Source of Information: Patient Spoken language: Latvian Patient can read in Latvian: Yes. Engineer/Conductor needed: No. COVID-19 screening completed: Yes Vitals: Vital signs completed: Yes, vital signs within normal range. BP 118/68 (BP Position: Supine) | Pulse 77 | Temp 36.6 C (97.8 F) | Resp 18 | SpO2 97% Condition Changes: Changes in health or social status since last visit: Patient reporting She has no health care manager at this time and sister in law helping with care at this time Patient keeps repeating Brice( her )can not do everything She feels he is struggling to care for her Brice did mention he is struggling with washing her and moving her Brice takes her to all appointments and gives her medication BSG Rang 130-250 The patient has new concerns since last visit: Yes, She has no caregiver at this time Progress towards goals since last visit: reporting no change Medications: Medication review completed? No, . Does the patient have barriers to medication adherence? Yes. Remembering to take medications: .Sometimes Patient reports difficulty paying for medications or might in the future: No. Telehealth: This is a telehealth visit: No. Symptoms Surveys and Evaluations: [facility] completed this visit: Yes. Score is 4 or more? Yes, notified Provider/Make Ready Worker [facility]: Age 65+: 1 (09/13/2022 3:00 PM) Diagnosis [...] risk for fallin (09/13/2022 3:00 PM) Plan: Recommended referral for: Homicide Squad Captain RNCM agreeable Patient's 'Red Flags': 1. S/s of UTI - Fever, confusion 2. Increased SOB 3. Fever Follow Up: Patient encouraged to call the intake phone number for all urgent but not emergent issues. Scheduled to follow up with patient in one week Kaylee Barakat Community Health Chronic Care Nurse 09/13/2022 2:18 PM Electronically signed by Kaylee Barakat [facility] Chronic [facility] Nurse at 09/14/2022 2:53 PM EST documented in this encounter Plan of Treatment Upcoming Encounters Date Type Specialty Care Team Description 09/20/2022 Home Visit Family Medicine Kaylee Barakat, Community Health Chronic Care Nurse [address] [place] [address] 09/26/2022 Office Visit Endocrinology Alberta Duque PA-C [address] [place] [address] 09/28/2022 Hem/Onc Treatment Hematology Oncology [place], Chair [address] [address] 09/28/2022 Office Visit Pharmacy Pharmacist1, [facility] 200 [place] [address] 09/28/2022 Office Visit Pulmonary Vivian Phillips CRNP 132 [place] [address] 10/04/2022 Home Visit [facility] July Poe RN 132 [place] [address] 10/13/2022 Office Visit Family Medicine Brianne Pal PA-C [address] [place] [address] 12/06/2022 Office Visit [facility] [address] 12/08/2022 Office Visit Hematology Oncology Tono Sanchez MD 200 [place] [address] 02/10/2023 Office Visit Sleep Disorders Love Francisco, DO [address] [place] [address] 03/01/2023 PulmDiagnostic Pulmonary Function West, Pft [address] [place] [address] Scheduled Procedures Name Priority Associated Diagnoses Date/Ti [...] encounter Medical Devices Implanted Type Area Brick Veneer Maker Device Identifier Shelf Expiration Date Model / Serial / Lot Microtech Sure Clip Implanted:Qty: 2 on 06/03/2020 by Janis Hatch DO at OR [facility] Clip N/A: Colon 04/21/2022 [facility]-F-26-2 35-C-R / / [id number] documented as of this encounter Advance Directives Documents on File Type Date Recorded Patient Circular Ripsaw Operator Expl anation Advance Directives and Living Will 04/29/2021 ADVANCE DIRECTIVE / LIVING WILL LIVING WILL AND HEALTH CARE POA Power of Crm Manager 04/29/2021 POWER OF A [facility]TORNEY HEALTH [...] the patient have Health Care Power of Crm Manager? No Code Status History Code Status Date Activated Date Inactivated Comments Full Code 12/27/2021 2:50 PM 12/27/2021 8:02 PM This order reflects the patients wishes and were consensually agreed upon. Question Answer Comments Discussion of Advance Directives occurred with: Not Discussed Does the patient have a Living Will? No Does the patient have Health Care Power of Crm Manager? No Full Code 03/31/2021 8:57 PM [...] Syed Bustos Spouse Emergency Contact Care Teams Patient Safety Manager Relationship Specialty Start Date End Date Vanita Dunn MD [address] [place] [address] PCP - General Family Medicine 03/16/21 documented as of this encounter"
--- OUTSIDE RECORDS SUMMARY | 2023-05-10 17:47 | External Medical Summary | Summary of Care ---
Author Name Unknown Organization [place] [address] Care Team Providers Care Hops Farmworker Name Role Phone Kojo Dunn MD Primary Care Provid er Reason for Visit * Reason Comments eRx-Medication Refill Encounter Details Date Type Department Care Team Description 09/09/2022 Refill [facility] [address] [place] [address] Kojo Dunn MD [address] [place] [address] Allergies Active Allergy Reactions Severity Noted Date Comments Adhesive Tape Itching 04/29/2020 Penicillins Rash 02/12/2008 Penicillin G 07/20/2018 Perflutren Protein A Microsph 2019 Definity-lower back pain documented as of this encounter (statuses as of 09/09/2022) Medications Medication Sig Dispensed Refills Start Date End Date Status nystatin (NYSTOP) 114715 UNIT/GM powder Apply topically to affected area 3 times a day. 60 g 1 0 Active Dexcom G6 Product Development Consultant Device Use as directed. To test blood sugars 4 times a day Dx E11.9 1 Each 0 1 Active Dexcom G6 Transmitter Use as directed. To test blood sugars 4 times a day. Change every 90 days. Dx E11.9 1 Each 3 1 Active OneTouch Verio In Vitro Strip (Glucose Blood) TESTING once daily 100 Strip 3 1 Active OneTouch Delica Plus [id number] TESTING once daily 100 Each 3 1 [...] TO ACCESSING. 30 g 0 2 Active Lactulose 10 GM/15ML Oral Solution (Constulose) Take 30mL by mouth 3 TIMES daily, titrate dose for effect of 3-5 bowel movements daily 1892 mL 3 2 Active Trulicity 4.5 MG/0.5ML Subcutaneous Solution [...] extremity swelling 90 Tablet 3 2 Active Furosemide 20 MG Oral Tablet (Lasix) TAKE 1 TABLET BY MOUTH DAILY as needed for lower extremity swelling 90 Tablet 1 2 09/09/20 22 Discontinued Hospital, Clinic, or Other Facility [...] as of this encounter (statuses as of 09/09/2022) Active Problems Problem Noted Date Hypertensive heart [...] current situation. 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 if a ferry terminal agent plan is made -continue lexapro Impaired mobility [...] as of this encounter (statuses as of 09/09/2022) Resolved Problems Problem Noted Date Resolved Date [...] pain 01/24/2012 01/17/2017 Genetic Sleep Disorder Research Other*[id number] 05/13/2011 04/07/2016 Obstructive sleep apnea 01/18/2011 12/27/19 [...] as of this encounter (statuses as of 09/09/2022) Immunizations Name Administration Dates Next Due COVID-19 [...] encounter Miscellaneous Notes * Telephone Encounter - Kemi Louie RPh - 09/09/2022 6:56 PM ESTSigned Prescriptions: Disp Refills Furosemide 20 MG Oral Tablet (Lasix) 90 Tab*3 Sig: TAKE 1 TABLETBY MOUTH DAILY as needed for lower extremity swellingAuthorizing Provider: KOJO DUNN User: KEMI LOUIE documented in this encounter Plan of Treatment Upcoming Encounters Date Type Specialty Care Team Description 09/13/2022 Home Visit Family Medicine Kaylee Barakat, Community Health Jewel Hole Driller [address] [place] [address] 09/14/2022 PulmDiagnostic Pulmonary Function West, Pft [address] [place] [address] [address] 09/26/2022 Office Visit Endocrinology Alberta Duque PA-C [address] [place] [address] 09/28/2022 Hem/Onc Treatment Hematology Oncology [place], Chair 7 Hem On[address] [place] [address] 09/28/2022 Office Visit Pharmacy Pharmacist1, [facility] 200 [facility] [place] [address] 09/28/2022 Office Visit Pulmonary Vivian Phillips CRNP [address] [place] [address] 10/04/2022 Home Visit [facility] July Poe RN [address] [place] [address] 10/13/2022 Office Visit Family Medicine Brianne Pal PA-C [address] [place] [address] 12/06/2022 Office Visit Gastroenterology Lyssa Stout CRNP [address] [place] [address] 12/08/2022 Office Visit Hematology Oncology Tono Sanchez MD 200 [place] [address] 02/10/2023 Office Visit Sleep Disorders Love Francisco DO 132 [facility] [place] [address] Scheduled Procedures Name Priority Associated Diagnoses Date/Ti [...] this encounter Medical Devices Implanted Type Area Speech Therapist Device Identifier Shelf Expiration Date Model / Serial / Lot Microtech Sure Clip Implanted:Qty: 2 on 06/03/2020 by Janis Hatch DO at OR [facility] Clip N/A: Colon 04/21/2022 [facility]-F-26-2 35-C-R / / [id number] documented as of this encounter Advance Directives Documents on File Type Date Recorded Patient Radiology Physician Assistant Expl anation Advance Directives and Living Will 04/29/2021 ADVANCE DIRECTIVE / LIVING WILL LIVING WILL AND HEALTH CARE POA Power of Bonsai Tender 04/29/2021 POWER OF A TTORNEY HEALTH [...] the patient have Health Care Power of Bonsai Tender? No Code Status History Code Status Date Activated Date Inactivated Comments Full Code 12/27/2021 2:50 PM 12/27/2021 8:02 PM This order reflects the patients wishes and were consensually agreed upon. Question Answer Comments Discussion of Advance Directives occurred with: Not Discussed Does the patient have a Living Will? No Does the patient have Health Care Power of Bonsai Tender? No Full Code 03/31/2021 8:57 PM [...] Name Relationship Healthcare Agent Relationshi p Communication ySed Bustos Spouse Emergency Contact Care Teams Hops Farmworker Relationship Specialty Start Date End Date Kojo Dunn MD [address] [place] [address] PCP - General Family Medicine 03/16/21 documented as of this encounter
--- OUTSIDE RECORDS SUMMARY | 2023-05-10 17:47 | External Medical Summary | Summary of Care ---
Author Name Unknown Organization [facility] [place] [address] Care Team Providers Care Genetics Physician Name Role Phone Vanita Dunn MD Primary Care Provid er Encounter Details Date Type Department Care Team Description 09/02/2022 Telephone [facility] [address] [place] [address] Vanita Dunn MD [address] [place] [address] Allergies Active Allergy Reactions Severity Noted Date Comments Adhesive Tape Itching 04/29/2020 Penicillins Rash 02/12/2008 Penicillin G 07/20/2018 Perflutren Protein A Microsph 2019 Definity-lower back pain documented as of this encounter (statuses as of 09/07/2022) Medications Medication Sig Dispensed Refills Start Date End Date Status nystatin (NYSTOP) 801419 UNIT/GM powder Apply topically to affected area 3 times a day. 60 g 1 10/16/2019 Active Dexcom G6 Mechanical System Technician Device Use as directed. To test blood sugars 4 times a day Dx E11.9 1 Each 0 09/14/2020 Active Dexcom G6 Transmitter Use as directed. To test blood sugars 4 times a day. Change every 90 days. Dx E11.9 1 Each 3 09/14/2020 Active OneTouch Verio In Vitro Strip (Glucose Blood) TESTING once daily 100 Strip 3 10/29/2020 Active OneTouch Delica Plus [id number] TESTING once daily 100 Each 3 10/29/2020 [...] TO ACCESSING. 30 g 0 02/10/2022 Active Furosemide 20 MG Oral Tablet (Lasix) TAKE 1 TABLET BY MOUTH DAILY as needed for lower extremity swelling 90 Tablet 1 02/15/2022 Active Lactulose 10 GM/15ML Oral Solution (Constulose) [...] package directions 21 Tablet 0 08/28/2022 Active Hospital, Clinic, or Other Facility Administered [...] as of this encounter (statuses as of 09/07/2022) Active Problems Problem Noted Date Hypertensive heart [...] as of this encounter (statuses as of 09/07/2022) Resolved Problems Problem Noted Date Resolved Date [...] pain 01/24/2012 01/17/2017 Genetic Sleep Disorder Research Other*[id number] 05/13/2011 04/07/2016 Obstructive sleep apnea 01/18/2011 12/27/19 [...] as of this encounter (statuses as of 09/07/2022) Immunizations Name Administration Dates Next Due COVID-19 [...] Miscellaneous Notes * Telephone Encounter - THAD Delgado - 09/07/2022 3:13 PM EST Patient is scheduled for Oct 13 @ 2:00pm. Patient ok'd appointment time. Patient's stated in the background that patient is no longer able to walk. * Telephone Encounter - Tamara Fabian LPN - 09/02/2022 3:15 PM EST Form is requesting office notes from physician that discusses her mobility limitations and why she would need a lift chair. Needs office visit to document the need as we do not have office notes on this. Please assist with scheduling. Thanks! Form placed in nursing accordion folder * Telephone Encounter - THAD Capone - 09/02/2022 1:57 PM EST Paperwork came through [facility] for pt from [facility] for a Lift Chair. Chart notes are needed and an explanation as to why pt needs a lift chair. Paperwork was put in providers mail bin on 09/02/22. documented in this encounter Plan of Treatment Upcoming Encounters Date Type Specialty Care Team Description 09/13/2022 Home Visit Family Medicine Kaylee Barakat, Community Health Sprinkler Irrigation Equipment Mechanic [address] [place] [address] 09/14/2022 PulmDiagnostic Pulmonary Function West, Pft [address] [place] [address] 09/26/2022 Office Visit Endocrinology Alberta Duque PA-C [address] [place], [place] [address] 09/28/2022 Hem/Onc Treatment Hematology Oncology [place], Chair 7 Hem Onc Scenery [address] [place] [address] 09/28/2022 Office Visit Pharmacy Pharmacist1, [facility] [address] [place] [address] 09/28/2022 Office Visit Pulmonary Vivian Phillips CRNP [address] [place] [address] 10/04/2022 Home Visit [facility] July Poe, RN [address] [place] [address] 10/13/2022 Office Visit Family Medicine Brianne Pal PARominaC [address] [place] [address] 12/06/2022 Office Visit Gastroenterology Lyssa Stout CRNP 132 [facility] [place] [address] 12/08/2022 Office Visit Hematology Oncology Tono Sanchez MD 200 [place] [address] 02/10/2023 Office Visit Sleep Disorders Love Francisco DO [address] [place] [address] Scheduled Procedures Name Priority Associated Diagnoses Date/Ti [...] Additional history exists Yearly B-12 09/15/2022 09/15/2021, 1002/2021, 04/01/2021, Additional history exists DIABETES-HGBA1C EVERY 6 [...] encounter Medical Devices Implanted Type Area School Crossing Guard Device Identifier Shelf Expiration Date Model / Serial / Lot Microtech Sure Clip Implanted:Qty: 2 on 06/03/2020 by Janis Hatch DO at OR [facility] Clip N/A: Colon 04/21/2022 [facility]-F-26-2 35-C-R / / [id number] documented as of this encounter Advance Directives Documents on File Type Date Recorded Patient Pasteuriser Operator Expl anation Advance Directives and Living Will 04/29/2021 ADVANCE DIRECTIVE / LIVING WILL LIVING WILL AND HEALTH CARE POA Power of Charge Authorizer 04/29/2021 POWER OF A [facility] [...] the patient have Health Care Power of Charge Authorizer? No Code Status History Code Status Date Activated Date Inactivated Comments Full Code 12/27/2021 2:50 PM 12/27/2021 8:02 PM This order reflects the patients wishes and were consensually agreed upon. Question Answer Comments Discussion of Advance Directives occurred with: Not Discussed Does the patient have a Living Will? No Does the patient have Health Care Power of Charge Authorizer? No Full Code 03/31/2021 8:57 PM 04/03/2021 [...] Agents on File Name Relationship [facility] Communication Syed Bustos Spouse Emergency Contact Care Teams Genetics Physician Relationship Specialty Start Date End Date Vanita Dunn MD [address] [place] [address] PCP - General Family Medicine 03/16/21 documented as of this encounter
--- OUTSIDE RECORDS SUMMARY | 2023-05-10 17:48 | External Medical Summary | Summary of Care ---
Author Name Unknown Organization [place] [address] Care Team Providers Care Rn Tele Name Role Phone Vanita Dunn MD Primary Care Provid er Reason for Visit * Reason Comments IV Therapy Venofer Encounter Details Date Type Department Care Team Description 09/07/2022 Hem/Onc Treatment Hematology/Oncology Treatment, [place] [address] [place] [address] Maryellen, Chair 5 Hem Onc Scenery [address] [facility] [place] [address] Iron deficiency anemia due to chronic blood loss*; Thrombocytopenia (HCC); MyCode Research Other*[id number] Allergies Active Allergy Reactions Severity Noted Date Comments Adhesive Tape Itching 04/29/2020 Penicillins Rash 02/12/2008 Penicillin G 07/20/2018 Perflutren Protein A Microsph 2019 Definity-lower back pain documented as of this encounter (statuses as of 09/07/2022) Medications Medication Sig Dispensed Refills Start Date End Date Status nystatin (NYSTOP) 702426 UNIT/GM powder Apply topically to affected area 3 times a day. 60 g 1 10/16/2019 Active Dexcom G6 Folder Stitcher Operator Device Use as directed. To test blood sugars 4 times a day Dx E11.9 1 Each 0 09/14/2020 Active Dexcom G6 Transmitter Use as directed. To test blood sugars 4 times a day. Change every 90 days. 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 if a intermission coordinator plan is made -continue lexapro Impaired mobility [...] pain 01/24/2012 01/17/2017 Genetic Sleep Disorder Research Other*[id number] 05/13/2011 04/07/2016 Obstructive sleep apnea 01/18/2011 12/27/19 [...] Sign Reading Time Taken Comments Blood Pressure 100/68 09/07/2022 12:01 PM EST Pulse 77 09/07/2022 12:01 PM EST Temperature 36.7 C (98.1 F) 09/07/2022 12:[address] Respiratory Rate 18 09/07/2022 12:01 PM EST Oxygen Saturation - - Inhaled Oxygen Concentration [...] Nursing Notes * Renetta Schuler RN - 09/07/2022 2:28 PM EST Pt completed treatment without issues. VAD flushed with 10 ml NSS and Heparin 5 ml (100 units/ml). Mason needle removed intact. Goals: Pt will remain free from injury. Possible barriers to meeting goals: pt is a high fall risk Stability of the patient: Moderately stable - low risk of patient condition declining or worsening Summary regarding today's goals: Met: Pt remained free from injury during treatment today. Discharged in stable condition. No coverage. * Renetta Schuler RN - 09/07/2022 12:00 PM EST Venofer. Pt presents to clinic in own w/c. Pt has no new symptoms/concerns to report. VAD accessed;specimen collected for ordered labs. Venofer infusing. Safety and Risk for Injury Patient will remain free from injury. Ensure appropriate safety devices are available. Provide and maintain safe environment. documented in this encounter Plan of Treatment Upcoming Encounters Date Type Specialty Care Team Description 09/13/2022 Home Visit Family Medicine Kaylee Barakat, [facility]a Lead [address] [place] [address] 09/14/2022 PulmDiagnostic Pulmonary Function West, [address] [place] [address] 09/26/2022 Office Visit Endocrinology Alberta Duque PA-C [address] [place], [place] [id number] 09/28/2022 Hem/Onc Treatment Hematology Oncology [place], Chair 7 Hem Onc Scenery [address] [facility] [place] [address] 09/28/2022 Office Visit Pharmacy Pharmacist1, [facility] [address] [place] [address] 09/28/2022 Office Visit Pulmonary Vivian Phillips CRNP [address] [place] [address] 10/04/2022 Home Visit [facility] July Poe RN [address] [place] [address] 12/06/2022 Office Visit Gastroenterology Lyssa Stout CRNP [address] [facility] [place] [address] 12/08/2022 Office Visit Hematology Oncology Tono Sanchez MD [address] [place] [address] 02/10/2023 Office Visit Sleep Disorders Love Francisco, [address] [facility] [place] [address] Scheduled Orders Name Type Priority Associated Diagnoses Orde r Schedule MYCODE SST1 Lab Routine MyCode Research Other*[id number] Ordered: 09/07/2022 MYCODE SST2 Lab Routine MyCode Research Other*[id number] Ordered: 09/07/2022 Scheduled Procedures Name Priority Associated Diagnoses Date/Ti [...] Additional history exists Yearly B-12 09/15/2022 09/15/2021, 10/02/2021, 04/01/2021, Additional history exists DIABETES-HGBA1C EVERY 6 [...] this encounter Medical Devices Implanted Type Area Marketing Sales Supervisor Device Identifier Shelf Expiration Date Model / Serial / Lot Microtech Sure Clip Implanted:Qty: 2 on 06/03/2020 by Janis Hatch DO at OR [facility] Clip N/A: Colon 04/21/2022 [facility]-F-26-2 35-C-R / / [id number] documented as of this encounter Procedures Procedure Name Priority Date/Time Associated Diagnosis Comments DIFFERENTIAL, AUTOMATED STAT 09/07/2022 12:04 PM EST Thrombocytopenia (HCC) CBC WITH WBC DIFFERENTIAL STAT 09/07/2022 12:04 PM EST Thrombocytopenia (HCC) CBC STAT 09/07/2022 12:04 PM EST Thrombocytopenia (HCC) DIFFERENTIAL, TECHNOLOGIST REVIEW Routine 09/07/2022 12:04 PM EST Thrombocytopenia (HCC) documented in this encounter Results * (ABNORMAL) DIFFERENTIAL, TECHNOLOGIST REVIEW (09/07/2022 12:04 PM EST) WBC 3.98(L) 4.00 - 10.80 K/uL 09/07/2022 12:31 PM EST [facility] 56-02 Neutrophils % 56.0 40.0 - 75.0 % 09/07/2022 12:31 PM EST [facility] 56-02 Lymphocytes % 18.0 18.0 - 42.0 % 09/07/2022 12:31 PM EST [facility] 56-02 Monocytes % 15.0(H) 1.0 - 11.0 % 09/07/2022 12:31 PM EST [facility] 56-02 Eosinophils % 11.0(H) 0.0 - 6.0 % 09/07/2022 12:31 PM EST [facility] 56-02 Absolute Neutrophils 2.23 1.80 - 7.70 K/uL 09/07/2022 12:31 PM EST [facility] 56-02 Absolute Lymphocytes 0.72(L) 1.00 - 4.80 K/uL 09/07/2022 12:31 PM EST [facility] 56-02 Absolute Monocytes 0.60 0.00 - 1.10 K/uL 09/07/2022 12:31 PM EST [facility] 56-02 Absolute Eosinophils 0.44 0.00 - 0.70 K/uL 09/07/2022 12:31 PM EST [facility] 56-02 nRBCs 2(H) <=0 /100 WBCs 09/07/2022 12:31 PM EST [facility] 56-02 Anisocytosis Slight(A) None Seen 09/07/2022 12:31 PM EST [facility] 56-02 Elliptocytes Few(A) None Seen 09/07/2022 12:31 PM EST [facility] 56-02 Macrocytosis Present(A ) None Seen 09/07/2022 12:31 PM EST [facility] 56- Tear Drop Cells Few(A) None Seen 12:31 PM EST [facility] 56 Blood Venous blood specimen / Unknown Venipuncture / Unknown 09/07/2022 12:04 PM EST 09/07/2022 12:04 PM EST Tono Sanchez MD LAB BLOOD ORDERABLES Performing Organization Address City/[facility] Co de Phone Number [place] [address] [address] [place] [address] * DIFFERENTIAL, AUTOMATED (09/07/2022 12:04 PM EST) Blood Venous blood specimen / Unknown Venipuncture / Unknown 09/07/2022 12:04 PM EST 09/07/2022 12:04 PM EST Tono Sanchez MD LAB BLOOD ORDERABLES Performing Organization Address [facility] Co de Phone Number [facility] [address] [address] * (ABNORMAL) CBC (09/07/2022 12:04 PM EST) WBC 3.98(L) 4.00 - 10.80 K/uL 09/07/2022 12:31 PM EST [facility] 56 RBC 2.79 3.85 - 5.15 M/uL 09/07/2022 12:31 PM EST [facility] 56 HGB 10.5(L) 12.0 - 15.3 g/dL 09/07/2022 12:31 PM EST [facility] 56- HCT 33.4(L) 36.0 - 45.2 % 09/07/2022 12:31 PM EST [facility] 56- MCV 119.7 81.5 - 97.5 fL 09/07/2022 12:31 PM EST [facility] 56- MCH 37.6 27.0 - 34.0 pg 09/07/2022 12:31 PM EST [facility] 56- MCHC 31.4 32.0 - 36.0 g/dL 09/07/2022 12:31 PM EST [facility] 56 RDW 16.9 11.5 - 15.5 % 09/07/2022 12:31 PM EST [facility] 56- PLT 70(L) 140 - 400 K/uL 09/07/2022 12:31 PM EST [facility] 56- MPV 12.7 6.6 - 11.1 fL 09/07/2022 12:31 PM EST [facility] 56- Blood Venous blood specimen / Unknown Venipuncture / Unknown 09/07/2022 12:04 PM EST 09/07/2022 12:04 PM EST Tono Sanchez MD LAB BLOOD ORDERABLES [facility] [address] [place] [address] documented in this encounter Visit Diagnoses Diagnosis Iron deficiency anemia due to chronic blood loss- Primary Iron deficiency anemia secondary to blood loss (chronic) Thrombocytopenia (HCC) Thrombocytopenia, unspecified MyCode Research Other*[id number] documented in this encounter Administered Medications Active Administered Medications - up to 3 most recent administrations Medication Order MAR Action Action Date Dose Rate Site diphenhydrAMINE (Benadryl) inj 50 mg 50 mg, IV Push, ONCE PRN Other, Hypersensitivity Reaction, Starting on Mon09/07/22 at 1152, Until [place] 09/08/22 at 1151, For 24 hours EPINEPHrine 1 MG/ML inj 0.3 mg 0.3 mg, Intramuscular, ONCE PRN Other, Hypersensitivity Reaction or Anaphylaxis, Starting on Mon09/07/22 at 1152, Until [place] 09/08/22 at 1151, For 24 hours hEParin 100 UNIT/ML Lock Flush inj 500 Units 500 Units (5 mL), IV Lock, PRN Other, IV Flush, Starting on Mon09/07/22 at 1152, Until [place] 09/08/22 at 1151, For 24 hours, Do not flush if lock, PICC, or central line not in place; IV infusing or unable to flush. Given 09/07/2022 1:33 PM EST 500 Units Hydrocortisone Sod Suc (PF) (Solu-Cortef) inj 100 mg 100 mg, IV Push, ONCE PRN Other, Hypersensitivity Reaction, Starting on Mon09/07/22 at 1152, Until [place] 09/08/22 at 1151, For 24 hours NSS infusion 500 mL, Intravenous, at 50 mL/hr, CONTINUOUS, Starting on Mon09/07/22 at 1300, Until Mon09/07/22 at 2259 Start Infusion 09/07/2022 11:57 AM EST 500 mL 50 mL/hr sodium chloride 0.9 % flush central line 10 mL 10 mL, IV Push, PRN Other, IV Flush, Starting on Mon09/07/22 at 1152, Until [place] 09/08/22 at 1151, For 24 hours, Do not flush if lock, PICC, or central line not in place; IV infusing or unable to flush. 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 No Code Status History Code Status Date Activated Date Inactivated Comments Full Code 12/27/2021 2:50 PM 12/27/2021 8:02 PM This order reflects the patients wishes and were consensually agreed upon. Question Answer Comments Discussion of Advance Directives occurred with: Not Discussed Does the patient have a Living Will? No Does the patient have Health Care Power of Behavioral Health Clinician? No Full Code 03/31/2021 8:57 PM 04/03/2021 [...] Syed Bustos Spouse Emergency Contact Care Teams Rn Tele Relationship Specialty Start Date End Date Vanita Dunn MD [address] [place] [address] PCP - General Family Medicine 03/16/21 documented as of this encounter
--- OUTSIDE RECORDS SUMMARY | 2023-05-10 17:48 | External Medical Summary ---
Author Name Unknown Address Unknown Organization K[facility] [place] [id number] Laboratory Report Ordering Provider Test Date Status JACOB CORBETT 09/07/2022 12:04:25 Final Observation Date Value Abnormality Reference (Units ) Status WBC, Total 09/07/2022 12:04:25 3.98 Below low normal 4. 00-10.80 (K/uL) Final RBC 09/07/2022 12:04:25 2.79 3.85-5.15 (M/uL) Final Hemoglobin 09/07/2022 12:04:25 10.5 Below low normal 12 .0-15.3 (g/dL) Final HCT 09/07/2022 12:04:25 33.4 Below low normal 36. 0-45.2 (%) Final MCV 09/07/2022 12:04:25 119.7 81.5-97.5 (fL) Final MCH 09/07/2022 12:04:25 37.6 27.0-34.0 (pg) Final MCHC 09/07/2022 12:04:25 31.4 32.0-36.0 (g/dL) Final RDW 09/07/2022 12:04:25 16.9 11.5-15.5 (%) Final Platelets 09/07/2022 12:04:25 70 Below low normal 140 -400 (K/uL) Final MPV 09/07/2022 12:04:25 12.7 6.6-11.1 ( fL) Final Performing Location [facility] [place] [id number]
--- OUTSIDE RECORDS SUMMARY | 2023-05-10 17:48 | External Medical Summary | Summary of Care ---
Author Name Unknown Organization [place] [address] Care Team Providers Care Lead Caster Name Role Phone Vanita Dunn MD Primary Care Provid er Reason for Visit * Reason Comments Diabetes Follow-Up Dosage Adjustment In Person (Anticoag Cl inic) Encounter Details Date Type Department Care Team Description 09/07/2022 Office Visit Pharmacy, [facility] [place] [address] [facility] [place] [address] Pharmacist1, [facility] [address] [facility] [place] [id number] Type 2 diabetes mellitus with hemoglobin A1c goal of less than 8.0% (FORMERLY [facility])* Allergies Active Allergy Reactions Severity Noted Date Comments Adhesive Tape Itching 04/29/2020 Penicillins Rash 02/12/2008 Penicillin G 07/20/2018 Perflutren Protein A Microsph 2019 Definity-lower back pain documented as of this encounter (statuses as of 09/07/2022) Medications Medication Sig Dispensed Refills Start Date End Date Status nystatin (NYSTOP) 202000 UNIT/GM powder Apply topically to affected area 3 times a day. 60 g 1 10/16/2019 Active Dexcom G6 Bag Sealer Device Use as directed. To test blood sugars 4 times a day Dx E11.9 1 Each 0 09/14/2020 Active Dexcom G6 Transmitter Use as directed. To test blood sugars 4 times a day. Change every 90 days. Dx E11.9 1 Each 3 09/14/2020 Active OneTouch Verio In Vitro Strip (Glucose Blood) TESTING once daily 100 Strip 3 10/29/2020 Active OneTouch Delica Plus [id number] TESTING once daily 100 Each 3 10/29/2020 [...] situation. 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 if a termite control representative plan is made -continue lexapro Impaired mobility [...] pain 01/24/2012 01/17/2017 Genetic Sleep Disorder Research Other*[id number] 05/13/2011 04/07/2016 Obstructive sleep apnea 01/18/2011 12/27/19 [...] encounter Progress Notes * Jonas Atwood V, [facility] - 09/07/2022 1:44 PM EST Images from the original note were not included. Medication Therapy Disease [facility] - Diabetes Management Progress Note Shaina Bustos, identified by name and date of , is a 67 year old female being seen for diabetesmanagement/education. Patient presents for return diabetic visit. DIABETES: Current diabetic medications: INCREASE: Novolog, Inject 35 units before breakfast, 39units before lunch, [id number] before supper INCREASE:Lantus pen,56 units daily Metformin ER 500mg daily Trulicity 4.5mg SQ weekly Medication Injection Site: Abdomen Lifestyle: Diet: unchanged History of Treatment Barriers: Lifestyle: wheelchair bound Therapy considerations: None Medication: Metformin IR:GM? Glucose Review/SMBG: Readings obtained from patient device Hypoglycemia: Does your blood sugar go below 70 mg/dL? No, all Dexcom readings <70 were false readings Hyperglycemia symptoms present: none Recent Labs Units 05/19/22 1449 01/24/22 0834 08/19/21 1619 HEMOGLOBIN A1C - [facility] % 7.4* 6.9* 7.1* Recent Labs Units 08/30/22 1552 05/19/22 1449 12/20/21 1448 ESTIMATED GLOMERULAR FILTRATION RATE - [facility] mL/min >90 83 >90 CREATININE - [facility] mg/dL 0.6 0.8 0.7 Lab Results Component Value Date/Time CREATININE - [facility] 0.6 08/30/2022 03:52 PM CREATININE - [facility] 0.8 05/19/2022 02:49 PM CREATININE - [facility] 0.7 12/20/2021 02:48 PM CREATININE - [facility] 0.6 09/24/2020 05:16 [...] goal BP Readings from Last 3 Encounters: 09/07/22 100/68 08/30/22 122/62 08/30/22 120/82 Blood pressure at goal: yes HYPERLIPIDEMIA: Patient is taking moderate or high intensity statin: yes HEALTH MAINTENANCE REVIEW: Health Maintenance Due Topic Date Due DXA Scan Never done DIABETES-EYE EXAM 06/12/2019 Pneumococcal Vaccine: 65+ Years (3 - PPSV23 if available, else PCV20) 2020 Zoster Vaccines (3 of 3) 06/23/2020 Depression Screening, Annual for Pts 12 and Over 07/27/2021 COVID-19 Vaccine (5 - Booster for Moderna series) 03/02/2022 DIABETES-FOOT EXAM 04/05/2022 ASSESSMENT & PLAN: ICD-10-CM 1. Type 2 diabetes mellitus with hemoglobin A1c goal of less than 8.0% (HCC) E11.9 BG Readings - Blood sugars uncontrolled. still rising after supper and staying high overnight. Too high at lowest point during day also. Medications - Reviewed current regimen, patient is adherent to regimen. Diet, Exercise, Lifestyle - No significant lifestyle changes since last visit. Discussed with patient today. Patient is agreeable to wear Dexcom G6 CGM. Patient aware to contact clinic if any hypoglycemia before next visit. MEDICATION CHANGES: yes, see below; preferred pharmacy: [facility] Diabetic Medications: INCREASE: Novolog, Inject 35 units before breakfast, 39units before lunch, [id number] before supper INCREASE:Lantus pen,62 units daily Metformin ER 500mg daily Trulicity 4.5mg SQ weekly HEALTH MAINTENANCE INTERVENTIONS: Labs: Ordered & Scheduled: HgA1c and Lipid Panel Immunizations: needs flu and pneumococcal - getting chemo q3 weeks Foot Exam: needs completed Eye Exam: needs completed Annual Wellness Visit: N/A FOLLOW UP: Return to clinic in 3 weeks 09/28/2022 Jonas Atwood RPh, [facility] Clinical Pharmacist - Sql Programmer Medication Therapy Management Clinic 09/07/2022, 2:05 PM documented in this encounter Plan of Treatment Upcoming Encounters Date Type Specialty Care Team Description 09/13/2022 Home Visit Family Medicine Kaylee Barakat, Community Health Ticket Manager [address] [place] [address] 09/14/2022 PulmDiagnostic Pulmonary Function West, [address] [facility] [address] 09/26/2022 Office Visit Endocrinology Alberta Duque PA-C [address] [place] [address] 09/28/2022 Hem/Onc Treatment Hematology Oncology [place], Chair 7 Hem Onc Scenery [address] [place] [address] 09/28/2022 Office Visit Pharmacy Pharmacist1, [facility] [address] [place] [address] 09/28/2022 Office Visit Pulmonary Vivian Phillips CRNP [address] [facility] [place] [address] 10/04/2022 Home Visit [facility] July Poe RN [address] [facility] [place] [address] 12/06/2022 Office Visit Gastroenterology Lyssa Stout CRNP [address] [facility] [place] [address] 12/08/2022 Office Visit Hematology Oncology Tono Sanchez MD [address] [place] [address] 02/10/2023 Office Visit Sleep Disorders Love Francisco DO [address] [facility] [place] [address] Scheduled Procedures Name Priority Associated Diagnoses Date/Ti [...] this encounter Medical Devices Implanted Type Area Skid Worker Device Identifier Shelf Expiration Date Model / Serial / Lot Microtech Sure Clip Implanted:Qty: 2 on 06/03/2020 by Janis Hatch DO at OR [facility] Clip N/A: Colon 04/21/2022 [facility]-F-26-2 35-C-R / / [id number] documented as of this encounter Visit Diagnoses Diagnosis Type 2 diabetes mellitus with hemoglobin A1c goal of less than 8.0% (HCC)- Primary documented in this encounter Advance Directives Documents on File Type Date Recorded 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 No Code Status History Code Status Date Activated Date Inactivated Comments Full Code 12/27/2021 2:50 PM 12/27/2021 8:02 PM This order reflects the patients wishes and were consensually agreed upon. Question Answer Comments Discussion of Advance Directives occurred with: Not Discussed Does the patient have a Living Will? No Does the patient have Health Care Power of Laundromat Manager? No Full Code 03/31/2021 8:57 PM [...] Syed Bustos Spouse Emergency Contact Care Teams Lead Caster Relationship Specialty Start Date End Date Vanita Dunn MD [address] [place] [address] PCP - General Family Medicine 03/16/21 documented as of this encounter
--- OUTSIDE RECORDS SUMMARY | 2023-05-10 17:48 | External Medical Summary | Summary of Care ---
Author Name Unknown Organization [facility] Address [place] [address] Care Team Providers Care Document Examiner Name Role Phone Vanita Dunn MD Primary Care Provid er Reason for Visit * Reason Onset Date Comments [facility]: Maintenance 09/05/2022 Encounter Details Date Type Department Care Team Description 09/05/2022 Scheduled Telephone [facility], [facility] [address] [facility] [place] [address] [facility], Nurse [facility] [address] [facility] [place] [address] Allergies Active Allergy Reactions Severity Noted Date Comments Adhesive Tape Itching 04/29/2020 Penicillins Rash 02/12/2008 Penicillin G 07/20/2018 Perflutren Protein A Microsph 2019 Definity-lower back pain documented as of this encounter (statuses as of 09/05/2022) Medications Medication Sig Dispensed Refills Start Date End Date Status nystatin (NYSTOP) 663752 UNIT/GM powder Apply topically to affected area 3 times a day. 60 g 1 10/16/2019 Active Dexcom G6 Senior Information Security Consultant Device Use as directed. To test blood sugars 4 times a day Dx E11.9 1 Each 0 09/14/2020 Active Dexcom G6 Transmitter Use as directed. To test blood sugars 4 times a day. Change every 90 days. Dx E11.9 1 Each 3 09/14/2020 Active OneTouch Verio In Vitro Strip (Glucose Blood) TESTING once daily 100 Strip 3 10/29/2020 Active OneTouch Delica Plus [id number] TESTING once daily 100 Each 3 10/29/2020 [...] as of this encounter (statuses as of 09/05/2022) Active Problems Problem Noted Date Hypertensive heart [...] care administrator plan is made -continue lexapro Impaired mobility [...] as of this encounter (statuses as of 09/05/2022) Resolved Problems Problem Noted Date Resolved Date [...] pain 01/24/2012 01/17/2017 Genetic Sleep Disorder Research Other*[id number] 05/13/2011 04/07/2016 Obstructive sleep apnea 01/18/2011 12/27/19 [...] as of this encounter (statuses as of 09/05/2022) Immunizations Name Administration Dates Next Due COVID-19 [...] thinks she needs a hysterectomy. Pt missed postdoctoral scientist appt last week d/t weather. Advised that she will need to further discuss this with postdoctoral scientist. Pt wishes to see postdoctoral scientist locally but needs candace lift to transfer out of w/c onto exam table. Will reach out to scheduling and see if this can be accommodated at [facility]. documented in this encounter Plan of Treatment Upcoming Encounters Date Type Specialty Care Team Description 09/07/2022 Hem/Onc Treatment Hematology Oncology [place], Chair 5 Hem Onc Sc[address]ery [address] [place] [address] 09/07/2022 Office Visit Pharmacy Pharmacist1, [facility] [address] [place] [address] 09/13/2022 Home Visit Family Medicine Kaylee Barakat, Community Health Team Leader [address] [place] [address] 09/14/2022 PulmDiagnostic Pulmonary Function [place], Pft [address] [place] [address] 09/26/2022 Office Visit Endocrinology Alberta Duque PA-C [address] [place] [address] 09/28/2022 Hem/Onc Treatment Hematology Oncology [place], Chair 7 Hem Onc Scenery 200 [facility] [place] [address] 09/28/2022 Office Visit Pulmonary Vivian Phillips CRNP [address] [place] [address] 10/04/2022 Home Visit [facility] July Poe RN [address] [place] [address] 12/06/2022 Office Visit Gastroenterology Lyssa Stout CRNP 132 [place] [address] 12/08/2022 Office Visit Hematology Oncology Sanchez, Tono A, MD 200 [place] [address] 02/10/2023 Office Visit Sleep Disorders Love Francisco, DO 132 [facility] [place] [address] Scheduled Procedures Name Priority Associated Diagnoses Date/Ti [...] this encounter Medical Devices Implanted Type Area Mailer Device Identifier Shelf Expiration Date Model / Serial / Lot Microtech Sure Clip Implanted:Qty: 2 on 06/03/2020 by Janis Hatch DO at OR [facility] Clip N/A: Colon 04/21/2022 [facility]-F-26-2 35-C-R / / [id number] documented as of this encounter Advance Directives Documents on File Type Date Recorded Patient Director Investment Banking Expl anation Advance Directives and Living Will 04/29/2021 ADVANCE DIRECTIVE / LIVING WILL LIVING WILL AND HEALTH CARE POA Power of Charge Account Clerk 04/29/2021 POWER OF A [facility] [...] patient have Health Care Power of Charge Account Clerk? No Code Status History Code Status Date Activated Date Inactivated Comments Full Code 12/27/2021 2:50 PM 12/27/2021 8:02 PM This order reflects the patients wishes and were consensually agreed upon. Question Answer Comments Discussion of Advance Directives occurred with: Not Discussed Does the patient have a Living Will? No Does the patient have Health Care Power of Charge Account Clerk? No Full Code 03/31/2021 8:57 PM [...] Bustos Spouse Emergency Contact Care Teams Document Examiner Relationship Specialty Start Date End Date Vanita Dunn MD [address] [place] [address] PCP - General Family Medicine 03/16/21 documented as of this encounter
--- OUTSIDE RECORDS SUMMARY | 2023-05-10 17:48 | External Medical Summary | Summary of Care ---
Author Name Unknown Organization [place] [address] Care Team Providers Care Family Law Mediator Name Role Phone Vainta Dunn MD Primary Care Provid er Reason for Visit * Reason Comments Acute Cough and headaches- pt reports "for a while" Encounter Details Date Type Department Care Team Description 08/30/2022 Office Visit [facility] [address] [place] [address] Memo Snider MD [address] [place] [address] Tension-type headache, not intractable, unspecified chronicity pattern*; Wheelchair dependent; Other cirrhosis of liver (HCC) Allergies Active Allergy Reactions Severity Noted Date Comments Adhesive Tape Itching 04/29/2020 Penicillins Rash 02/12/2008 Penicillin G 07/20/2018 Perflutren Protein A Microsph 2019 Definity-lower back pain documented as of this encounter (statuses as of 08/30/2022) Medications Medication Sig Dispensed Refills Start Date End Date Status nystatin (NYSTOP) 907176 UNIT/GM powder Apply topically to affected area 3 times a day. 60 g 1 10/16/2019 Active Dexcom G6 Protective Signal Repairer Device Use as directed. To test blood sugars 4 times a day Dx E11.9 1 Each 0 09/14/2020 Active Dexcom G6 Transmitter Use as directed. To test blood sugars 4 times a day. Change every 90 days. Dx E11.9 1 Each 3 09/14/2020 Active OneTouch Verio In Vitro Strip (Glucose Blood) TESTING once daily 100 Strip 3 10/29/2020 Active OneTouch Delica Plus [id number] TESTING once daily 100 Each 3 10/29/2020 [...] of less than 8.0% ([facility]) Inject 50 Units under the skin every [...] 2.5 mg NEBULIZER PRN 04/23/2022 04/23/2023 Active ketorolac (Toradol) 30 MG/ML inj 30 mgIndications:Tension-t ype headache, not intractable, unspecified chronicity pattern 30 mg IM ONCE 08/30/2022 08/30/2022 Ended documented as of this encounter (statuses as of 08/30/2022) Active Problems Problem Noted Date Hypertensive heart [...] as of this encounter (statuses as of 08/30/2022) Resolved Problems Problem Noted Date Resolved Date [...] Hyperglycemia 05/02/2012 09/13/2021 Diverticulosis of colon 05/02/2012 06/05/20 18 Internal hemorrhoids 04/12/2012 07/02/2014 Migraine variant, [...] pain 01/24/2012 01/17/2017 Genetic Sleep Disorder Research Other*[id number] 05/13/2011 04/07/2016 Obstructive sleep apnea 01/18/2011 12/27/19 [...] as of this encounter (statuses as of 08/30/2022) Immunizations Name Administration Dates Next Due COVID-19 [...] Sign Reading Time Taken Comments Blood Pressure 122/62 08/30/2022 2:51 PM EST Pulse 72 08/30/2022 2:51 PM EST Temperature 36.5 C (97.7 F) 08/30/2022 2:51 PM ES T Respiratory Rate 18 08/30/2022 2:51 PM EST Oxygen Saturation 94% 08/30/2022 2:51 PM EST Inhaled Oxygen Concentration - - [...] this encounter Patient Instructions * Patient Instructions* Memo Snider MD - 08/30/2022 3:28 PM EST Take tylenol 500 mg up to 4 times daily for headache. documented in this encounter Progress Notes * Memo Snider MD - 08/30/2022 3:20 PM EST Images from the original note were not included. Assessment and Plan 1. Tension-type headache, not intractable, unspecified chronicity pattern Ongoing tension type headache. Limited choices due to medical comorbidities and financial limitations. We will give 30 mg of Toradol in office today. Encouraged patient to use Tylenol as needed for headaches. No more than 2000 mg total in a 24 hour period. - ketorolac (Toradol) 30 MG/ML inj 30 mg. 2. Wheelchair dependent 3. Other cirrhosis of liver (HCC) Wrap-Up Follow up as needed. History of Present Illness Patient is a 67-year-old female with extensive complex past medical history including type 2 diabetes, restrictive lung disease, Thompson cirrhosis with portal hypertensive gastropathy, morbid obesity, wheelchair-bound, urinary incontinence who presents with ongoing headache. Patient notes she is had increased frequency of headaches over the last month. They are bifrontal. No unilateral headaches. Nophotophobia or phonophobia. Has been using Tylenol with some relief. No significant illness over the last month. Eating and drinking okay. Physical Exam Vitals: 08/30/22 1451 Temp: 36.5 C (97.7 F) Pulse: 72 Resp: 18 SpO2: 94% BP: 122/62 Physical Exam Physical Exam Vitals reviewed. Constitutional: General: She is not in acute distress. Comments: Wheelchair-bound. Pulmonary: Effort: Pulmonary effort is normal. No respiratory distress. Neurological: General: No focal deficit present. Mental Status: She is alert. documented in this encounter Nursing Notes * Shahnaz Francis LPN - 08/30/2022 2:56 PM EST The patient has been properly identified by confirmation of name and date of . Chief Complaint Patient presents with Acute Cough and headaches-pt reports "for a while" documented in this encounter Plan of Treatment Upcoming Encounters Date Type Specialty Care Team Description 09/01/2022 Office Visit Gynecology Obstetrics Concetta Khan MD [address] [facility] [place] [address] 09/07/2022 Hem/Onc Treatment Hematology Oncology [place], Chair 5 Hem Onc Scenery 200 [place] [address] 09/07/2022 Office Visit Pharmacy Pharmacist1, [facility] Sp 200 [place] [address] 09/13/2022 Home Visit Family Medicine Kaylee Barakat, Community Health Tobacco Flavorer [address] [place] [address] 09/14/2022 PulmDiagnostic Pulmonary Function West, Pft [address] [facility] [place] [address] 09/26/2022 Office Visit Endocrinology Alberta Duque PA-C [address] [place], [place] [address] 09/28/2022 Hem/Onc Treatment Hematology Oncology [place], Chair 7 Hem Onc Scenery 200 [place] [address] 09/28/2022 Office Visit Pulmonary Vivian Phillips CRNP [address] [facility] [place] [address] 10/04/2022 Home Visit [facility] July Poe, RN 132 [facility] [place] [address] 10/26/2022 Office Visit Hematology Oncology Tono Sanchez MD [address] [place] [address] 12/06/2022 Office Visit Gastroenterology Girish Lyssaorlando Travis, ZAK [address] [place] [address] 02/10/2023 Office Visit Sleep Disorders Maryam Love HodgesDO 132 [place] [address] Scheduled Procedures Name Priority Associated Diagnoses Date/Ti [...] 03/30/2023 03/30/2022, , 02/03/2017, Additional history exists GFR - Renal Function 05/19/2023 05/19/2022, 12/20/2021, 12/18/2021, Additional history exists TSH FOR THYROID MEDICATION MONITORING YEARLY 07/06/2023 07/06/2022, 05/19/2022, 06/10/2021, Additional history exists Mammogram 09/09/2023 09/09/2021, 08/12, [...] this encounter Medical Devices Implanted Type Area Groover Operator Device Identifier Shelf Expiration Date Model / Serial / Lot Microtech Sure Clip Implanted:Qty: 2 on 06/03/2020 by Janis Hatch DO at OR [facility] Clip N/A: Colon 04/21/2022 [facility]-F-26-2 35-C-R / / [id number] documented as of this encounter Visit Diagnoses Diagnosis Tension-type headache, not intractable, unspecified chronicity pattern- Primary Wheelchair dependent Wheelchair dependence Other cirrhosis of liver (HCC) documented in this encounter Administered Medications Inactive Administered Medications - up to 3 most recent administrations Medication Order MAR Action Action Date Dose Rate Site ketorolac (Toradol) 30 MG/ML inj 30 mg 30 mg, Intramuscular, ONCE, On Tu08/30/22 at 1615, For 1 dose, Given 08/30/2022 3:43 PM EST 30 mg Deltoid Left Upper documented in this encounter Advance Directives Documents on File Type Date Recorded Patient Pipe Caulker Expl anation Advance Directives and Living Will 04/29/2021 ADVANCE DIRECTIVE / LIVING WILL LIVING WILL AND HEALTH CARE POA Power of Glassware Maker Demonstrator 04/29/2021 POWER OF A [facility] [...] the patient have Health Care Power of Glassware Maker Demonstrator? No Code Status History Code Status Date Activated Date Inactivated Comments Full Code 12/27/2021 2:50 PM 12/27/2021 8:02 PM This order reflects the patients wishes and were consensually agreed upon. Question Answer Comments Discussion of Advance Directives occurred with: Not Discussed Does the patient have a Living Will? No Does the patient have Health Care Power of Glassware Maker Demonstrator? No Full Code 03/31/2021 8:57 PM 04/03/2021 [...] File Name Relationship Healthcare Agent [facility] Communication Syed Bustos Spouse Emergency Contact Care Teams Family Law Mediator Relationship Specialty Start Date End Date Vanita Dunn MD [address] [place] [facility] [place] [address] PCP - General Family Medicine 03/16/21 documented as of this encounter
--- OUTSIDE RECORDS SUMMARY | 2023-05-10 17:48 | External Medical Summary ---
Author Name Unknown Address Unknown Organization K09:[facility] [place] [address] Laboratory Report Ordering Provider Test Date Status JACOB CORBETT 09/07/2022 12:04:25 Final Observation Date Value Abnormality Reference (Units ) Status SYNC LEUKOCYTES IN BLOOD BY AUTOMATED COUNT 09/07/2022 12:04:25 3.98 Below low normal 4.00-10.80 (K/uL) Final Neutrophils/100 leukocytes in Blood by Manual count 09/07/2022 12:04:25 56.0 40.0-75.0 (%) Final Lymphocytes/100 leukocytes in Blood by Manual count 09/07/2022 12:04:25 18.0 18.0-42.0 (%) Final Monocytes/100 leukocytes in Blood by Manual count 09/07/2022 12:04:25 15.0 Above high normal 1.0-11.0 (%) Final Eosinophils/100 leukocytes in Blood by Manual count 09/07/2022 12:04:25 11.0 Above high normal 0.0-6.0 (%) Final Neutrophils [#/volume] in Blood by Manual count 09/07/2022 12:04:25 2.23 1.80-7.70 (K/uL) Final Lymphocytes [#/volume] in Blood by Manual count 09/07/2022 12:04:25 0.72 Below low normal 1.00-4.80 (K/uL) Final Monocytes [#/volume] in Blood by Manual count 09/07/2022 12:04:25 0.60 0.00-1.10 (K/uL) Final Eosinophils [#/volume] in Blood by Manual count 09/07/2022 12:04:25 0.44 0.00-0.70 (K/uL) Final Nucleated erythrocytes/100 leukocytes [Ratio] in Blood by Automated count 09/07/2022 12:04:25 2 Above high normal <=0 (/100 WBCs) Final Anisocytosis [Presence] in Blood by Light microscopy 09/07/2022 12:04:25 Slight Abnormal None Seen Final Elliptocytes [Presence] in Blood by Light microscopy 09/07/2022 12:04:25 Few Abnormal None Seen Final Macrocytes [Presence] in Blood by Light microscopy 09/07/2022 12:04:25 Present Abnormal None Seen Final Dacrocytes [Presence] in Blood by Light microscopy 09/07/2022 12:04:25 Few Abnormal None Seen Final Performing Location [facility] [address] [place] [address]
--- NOTE | 2023-05-10 17:49 | XRay Report ---
XR chest 1V portable CLINICAL HISTORY: Shortness of breath COMPARISON STUDY: Chest CT October 16, 2022. Chest radiograph May 09, 2023. FINDINGS: Right internal jugular [id number] remains in place. There is no pneumothorax. No pleural effusion. There is moderate right lower lung airspace opacity with volume loss. Cardiomegaly is unch anged. No evidence for pulmonary edema. IMPRESSION: 1. Moderate right lower lobe airspace opacity with volume loss. This could reflect pneumonia or atele ctasis. Radiographic follow-up to ensure resolution is recommended. 2. Cardiomegaly. No evidence for pulmonary edema. ACT 112: Negative or not required by law. Electronically signed by: Lucas Lambert M.D. 05/10/2023 5:47 PM
--- OUTSIDE RECORDS SUMMARY | 2023-05-10 17:49 | External Medical Summary ---
Author Name Unknown Address Unknown Organization K01:[facility] [place] [address] [facility] [address] [facility] [address] Laboratory Report Ordering Provider Test Date Status DESMOND GUSMANN 08/30/2022 15:52:44 Final Observation Date Value Abnormality Reference (Units ) Status BUN 08/30/2022 15:52:44 17 6-20 (mg/dL) Final Creatinine 08/30/2022 15:52:44 0.6 0.5-1.0 (mg/dL) Final Glomerular filtration rate/1.73 sq M.predicted [Volume Rate/Area] in Serum, Plasma or Blood by Creatinine-based formula (CKD-EPI) 08/30/2022 15:52:44 >90 >=60 (mL/min) Final Performing Location [facility] [place] [address] [facility] [address]
--- OUTSIDE RECORDS SUMMARY | 2023-05-10 17:49 | External Medical Summary ---
Author Name Unknown Address Unknown Organization [id number][place] [place] [address] [facility] [place] [address] Laboratory Report Ordering Provider Test Date Status ODESSA GUSMAN 08/30/2022 15:52:44 Final Observation Date Value Abnormality Reference (Units ) Status SYNC LEUKOCYTES IN BLOOD BY AUTOMATED COUNT 08/30/2022 15:52:44 5.26 4.00-10.80 (K/uL) Final Segs 08/30/2022 15:52:44 78.0 Above high normal 40.0-75.0 (%) Final Lymphs % 08/30/2022 15:52:44 12.5 Below low normal 18.0-42.0 (%) Final Monos 08/30/2022 15:52:44 7.8 1.0-11.0 (%) Final Eosinophils 08/30/2022 15:52:44 0.4 0.0-6.0 (%) Final Basos 08/30/2022 15:52:44 0.2 0.0-2.0 (%) Final Immature Granulocyte, Percent 08/30/2022 15:52:44 1.1 0.0-2.0 (%) Final Absolute Segs 08/30/2022 15:52:44 4.10 1.80-7.70 (K/uL) Final Lymphs, absolute 08/30/2022 15:52:44 0.66 Below low normal 1.00-4.80 (K/ul) Final Monos, Abs 08/30/2022 15:52:44 0.41 0.00-1.10 (K/uL) Final Eos, Abs 08/30/2022 15:52:44 0.02 0.00-0.70 (K/uL) Final Basos, Abs 08/30/2022 15:52:44 0.01 0.00-0.20 (K/uL) Final Immature Granulocytes, Number 08/30/2022 15:52:44 0.06 0.00-0.20 (K/uL) Final Performing Location [facility] [place] [facility] [place] [address]
--- OUTSIDE RECORDS SUMMARY | 2023-05-10 17:49 | External Medical Summary ---
Author Name Unknown Address Unknown Organization K01:[facility] [place] - [address] [place] [address] Laboratory Report Ordering Provider Test Date Status ODESSA GUSMAN 08/30/2022 15:52:44 Final Observation Date Value Abnormality Reference (Units ) Status WBC, Total 08/30/2022 15:52:44 5.26 4.00-10.8 0 (K/uL) Final RBC 08/30/2022 15:52:44 2.74 3.85-5.15 (M/uL) Final Hemoglobin 08/30/2022 15:52:44 10.3 Below low normal 12 .0-15.3 (g/dL) Final HCT 08/30/2022 15:52:44 33.2 Below low normal 36. 0-45.2 (%) Final MCV 08/30/2022 15:52:44 121.2 81.5-97.5 (fL) Final MCH 08/30/2022 15:52:44 37.6 27.0-34.0 (pg) Final MCHC 08/30/2022 15:52:44 31.0 32.0-36.0 (g/dL) Final RDW 08/30/2022 15:52:44 17.0 11.5-15.5 (%) Final Platelets 08/30/2022 15:52:44 63 Below low normal 140 -400 (K/uL) Final MPV 08/30/2022 15:52:44 Final Performing Location [facility] [place] - [address] [place] [address]
--- OUTSIDE RECORDS SUMMARY | 2023-05-10 17:49 | External Medical Summary ---
Author Name Unknown Address Unknown Organization K01:[facility] [place] - [address] [place] [address] Laboratory Report Ordering Provider Test Date Status DESMOND GUSMANN 08/30/2022 15:52:44 Final Observation Date Value Abnormality Reference (Units ) Status PT 08/30/2022 15:52:44 17.4 Above high normal 11 .6-15.2 (seconds) Final INR 08/30/2022 15:52:44 1.4 Above high normal 0. 8-1.2 Final Performing Location [facility] [place] - [address] [place] [address]
--- OUTSIDE RECORDS SUMMARY | 2023-05-10 17:49 | External Medical Summary ---
Author Name Unknown Address Unknown Organization K01:[facility] [place] - [address] [place] [address] Laboratory Report Ordering Provider Test Date Status ODESSA GUSMAN 08/30/2022 15:52:44 Final Observation Date Value Abnormality Reference (Units ) Status Alpha-Fetoprotein 08/30/2022 15:52:44 7.3 0. 0-8.3 (ng/mL) Final Performing Location [facility] - [address] [place] [address]
--- OUTSIDE RECORDS SUMMARY | 2023-05-10 17:49 | External Medical Summary | Summary of Care ---
Author Name Unknown Organization [place] [address] Care Team Providers Care Dispatch Clerk Name Role Phone Vanita Dunn MD Primary Care Provid er Reason for Referral * Precert (Within 10 days (routine)) - Not Required MYKB Specialty Diagnoses / Procedures Referred By Contac t Referred To Contact Radiology Diagnoses Cirrhosis of liver without ascites, unspecified hepatic cirrhosis type (HCC) Procedures CT LIVER 4-PHASE W WO IV CONTRAST - WO ORAL CONT CT ABDOMEN W WO IV AND W ORAL CONTRAST Lyssa Stout CRNP [address] [place] [address] Referral ID Status Reason Start Date Expiration Date V isits Requested Visits Authorized [id number] Not Required MYKB 08/30/2022 999 999 Reason for Visit * Reason Comments Follow Up Cirrhosis Encounter Details Date Type Department Care Team Description 08/30/2022 Office Visit Gastroenterology, [facility] [address] [place] [address] Lyssa Stout CRNP [address] [place] [address] Cirrhosis of liver without ascites, unspecified hepatic cirrhosis type (HCC)*; NAFLD (nonalcoholic fatty liver disease) Allergies Active Allergy Reactions Severity Noted Date Comments Adhesive Tape Itching 04/29/2020 Penicillins Rash 02/12/2008 Penicillin G 07/20/2018 Perflutren Protein A Microsph 2019 Definity-lower back pain documented as of this encounter (statuses as of 08/30/2022) Medications Medication Sig Dispensed Refills Start Date End Date Status nystatin (NYSTOP) 507642 UNIT/GM powder Apply topically to affected area 3 times a day. 60 g 1 10/16/2019 Active Dexcom G6 Imaging System Administrator Device Use as directed. To test blood sugars 4 times a day Dx E11.9 1 Each 0 09/14/2020 Active Dexcom G6 Transmitter Use as directed. To test blood sugars 4 times a day. Change every 90 days. Dx E11.9 1 Each 3 09/14/2020 Active OneTouch Verio In Vitro Strip (Glucose Blood) TESTING once daily 100 Strip 3 10/29/2020 Active OneTouch Delica Plus [id number] TESTING once daily 100 Each 3 10/29/2020 [...] pain 01/24/2012 01/17/2017 Genetic Sleep Disorder Research Other*[id number] 05/13/2011 04/07/2016 Obstructive sleep apnea 01/18/2011 12/27/19 [...] of this encounter Progress Notes * Lyssa StoutZAK - 08/30/2022 1:22 PM EST DATE OF [...] dark tarry stools 05/11/2021 (seen by [facility] Hepatology, Dr. 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 She was recently admitted to [facility] 03/07/21-03/11/21 with chest/epigastric [...] than 8.0% ([facility]) 09/26/2013 ICD-10 update of inactive term Venous insufficiency 01/09/2009 duplicate Family History Problem Relation Age of Onset Heart Disorder Father of OR at age 61 Diabetes Father Heart Disorder Mother of OR age 72 Heart Disorder Sister Mi at age 46 Hypertension Sister Cancer No significant family history Arthritis No significant family history Mental Disorder No significant family history Stroke No significant family history Past Surgical History: Procedure Laterality Date BONE DEBRIDEMENT, FIRST 20 CM2 Right 04/16/2020 DEBRIDEMENT SKIN SUBCUTANEOUS TISSUE MUSCLE AND BONE performed by Josh Vazquez MD at OR [facility] DELIVERY 04/20/1982 COLONOSCOPY 04/21/2009 repeat in 10 years COLONOSCOPY, DIAGNOSTIC (RECTUM) 10/04/2016 normal bx, repeat 10 yrs/[facility] COLONOSCOPY, DIAGNOSTIC (RECTUM) N/A 06/03/2020 internal hemorrhoids/biopsies show adenomatous polyps/recall 5 years/COLONOSCOPY FLEXIBLE PROXIMAL DIAGNOSTIC performed by Janis Hatch DO at OR [facility] COLONOSCOPY, DIAGNOSTIC (RECTUM) 03/17/2020 poor prep / [facility] DENTAL SURGERY PROCEDURE NEC wisdom teeth x 4 DILATION AND CURETTAGE (D&C) EGD, FLEXIBLE, DIAGNOSTIC 10/04/2016 gastritis/[facility] EGD, FLEXIBLE, DIAGNOSTIC 01/11/2018 eso varices, retained food, repeat 1 yr/[facility] EGD, FLEXIBLE, DIAGNOSTIC N/A 06/03/2020 severe erosive esophagitis/non-bleeding grade II esophageal varices/gastritis/biopsies show inflammatory changes/repeat 3-4 months/ESOPHAGOGASTRODUODENOSCOPY (EGD), FLEXIBLE, TRANSORAL, DIAGNOSTIC per formed by Janis Hatch DO at [facility] EGD, FLEXIBLE, DIAGNOSTIC 11/27/2019 eso varices, portal hypertensive gastropathy, gastritis / [facility] EGD, FLEXIBLE, DIAGNOSTIC N/A 08/05/2020 large amount of food in stomach/repeat 1.5 years/ESOPHAGOGASTRODUODENOSCOPY (EGD), FLEXIBLE, TRANSORAL, DIAGNOSTIC performed by Janis Hatch DO at OR [facility] EGD, FLEXIBLE, DIAGNOSTIC N/A 03/10/2021 ESOPHAGOGASTRODUODENOSCOPY (EGD), FLEXIBLE, TRANSORAL, DIAGNOSTIC performed by Kris Blankenship MD at ENDOSCOPY [facility] HYSTEROSCOPY W/BIOPSY AND/OR POLYPECTOMY W/WO D&C N/A 12/27/2021 HYSTEROSCOPY WITH BIOPSY AND/OR POLYPECTOMY WITH OR WITHOUT D&C performed by Concetta Khan MD at OR [facility] HYSTEROSCOPY W/BIOPSY AND/OR POLYPECTOMY W/WO D&C N/A 02/14/2022 HYSTEROSCOPY WITH BIOPSY AND/OR POLYPECTOMY WITH OR WITHOUT D&C performed by Concetta Khan MD at OR [facility] INSERT INTRAUTERINE DEVICE (IUD) N/A 02/14/2022 INSERTION OF INTRAUTERINE DEVICE performed by Concetta Khan MD at OR [facility] IR VENOUS ACCESS MEDIPORT 10/05/2020 PELVIS/HIP JOINT SURGERY NEC teenager aid in walking REMOVE CERVIX CONE W/LOOP ELECTRODE N/A 12/27/2021 LOOP ELECTROSURGERY EXCISION PROCEDURE performed by Concetta Khan MD at OR [facility] REPAIR/GRAFT ACHILLES TENDON age 40 aid in [...] Medications Medication Sig Dispense Refill nystatin (NYSTOP) 907946 UNIT/GM powder Apply topically to affected area 3 times a day. 60 g 1 Dexcom G6 Imaging System Administrator Device Use as directed. To test blood [...] package directions 21Tablet 0 OneTouch Delica Plus [id number] TESTING once daily 100 Each 3 Disposable [...] B immunity: completed series - HCC screening [id number]: AFP and obtain CT liver for next [...] TO CLINIC: 3- 4 months or sooner [facility], [facility] documented in this encounter Nursing Notes * [...] Encounters Date Type Specialty Care Team Description 08/30/2022 Office Visit Family Medicine Memo Snider MD [address] [place] [address] 09/01/2022 Office Visit Gynecology Obstetrics Concetta Khan MD [address] [place] [address] 09/07/2022 Hem/Onc Treatment Hematology Oncology [place], Chair 5 Hem Onc Scenery 200 [facility] [place] [address] 09/07/2022 Office Visit Pharmacy Pharmacist1, [facility] [address] [place] [address] 09/13/2022 Home Visit Family Medicine Kaylee Barakat, Community Health Supervisor [employer] [address] [place] [address] 09/14/2022 PulmDiagnostic Pulmonary Function West, Pft [address] [place] [address] 09/26/2022 Office Visit Endocrinology Alberta Duque PA-C [address] [place], [place] [id number] 09/28/2022 Hem/Onc Treatment Hematology Oncology [place], Chair 7 Hem Onc [facility] [address] [place] [address] 09/28/2022 Office Visit Pulmonary Vivian Phillips CRNP 132 [facility] [place] [address] 10/04/2022 [facility] Visit [facility] [place] [address] 10/26/2022 Office Visit Hematology Oncology Tono Sanchez MD [address] [facility] [place] [address] 12/06/2022 Office Visit Gastroenterology Lyssa Stout CRNP [address] [place] [address] 02/10/2023 Office Visit Sleep Disorders Love Francisco DO [address] [place] [address] Scheduled Orders Name Type Priority Associated Diagnoses Orde r Schedule CBC WITH WBC DIFFERENTIAL Lab Routine Cirrhosis of liver without ascites, unspecified hepatic cirrhosis type (HCC) Ordered: 08/30/2022 COMPREHENSIVE METABOLIC PANEL Lab Routine Cirrhosis of liver without ascites, unspecified hepatic cirrhosis type (HCC) Ordered: 08/30/2022 PT INR Lab Routine Cirrhosis of liver without ascites, unspecified hepatic cirrhosis type (HCC) Ordered: 08/30/2022 ALPHA-FETOPROTEIN TUMOR MARKER Lab Routine Cirrhosis of liver without ascites, unspecified hepatic cirrhosis type (HCC) Ordered: 08/30/2022 CT LIVER 4-PHASE W WO IV CONTRAST - WO ORAL CONT Medical Imaging Routine Cirrhosis of liver without ascites, unspecified hepatic cirrhosis type (HCC) Ordered: 08/30/2022 CREATININE Lab Routine Cirrhosis of liver without ascites, unspecified hepatic cirrhosis type (HCC) Ordered: 08/30/2022 Scheduled Procedures Name Priority Associated Diagnoses Date/Ti [...] this encounter Medical Devices Implanted Type Area Emergency Doctor Device Identifier Shelf Expiration Date Model / Serial / Lot Microtech Sure Clip Implanted:Qty: 2 on 06/03/2020 by Janis Hatch DO at OR [facility] Clip N/A: Colon 04/21/2022 [facility]-F-26-2 35-C-R / / [id number] documented as of this encounter Visit Diagnoses Diagnosis Cirrhosis of liver without ascites, unspecified hepatic cirrhosis type (HCC)- Primary NAFLD (nonalcoholic fatty liver disease) Other chronic nonalcoholic liver disease documented in this encounter Advance Directives Documents on File Type Date Recorded Patient Canteen Operator Expl anation Advance Directives and Living Will 04/29/2021 ADVANCE DIRECTIVE / LIVING WILL LIVING WILL AND HEALTH CARE POA Power of Phone Circuit Operator 04/29/2021 POWER OF A [facility] [...] the patient have Health Care Power of Phone Circuit Operator? No Code Status History Code Status Date Activated Date Inactivated Comments Full Code 12/27/2021 2:50 PM 12/27/2021 8:02 PM This order reflects the patients wishes and were consensually agreed upon. Question Answer Comments Discussion of Advance Directives occurred with: Not Discussed Does the patient have a Living Will? No Does the patient have Health Care Power of Phone Circuit Operator? No Full Code 03/31/2021 8:57 PM [...] Relationship Healthcare Agent [facility] Communication Titus Bustos Spouse Emergency Contact Care Teams Dispatch Clerk Relationship Specialty Start Date End Date Vanita Dunn MD [address] [place] [address] PCP - General Family Medicine 03/16/21 documented as of this encounter
--- OUTSIDE RECORDS SUMMARY | 2023-05-10 17:49 | External Medical Summary | Summary of Care ---
Author Name Unknown Organization [place] [address] Care Team Providers Care Web Analytics Specialist Name Role Phone Vanita Dunn MD Primary Care Provid er Reason for Visit * Reason Comments Outpatient Testing Encounter Details Date Type Department Care Team Description 08/30/2022 Laboratory Laboratory, [facility] [address] [place] [address] [facility] [address] [place] [address] Arrived Allergies Active Allergy Reactions Severity Noted Date Comments Adhesive Tape Itching 04/29/2020 Penicillins Rash 02/12/2008 Penicillin G 07/20/2018 Perflutren Protein A Microsph 2019 Definity-lower back pain documented as of this encounter (statuses as of 08/30/2022) Medications Medication Sig Dispensed Refills Start Date End Date Status nystatin (NYSTOP) 083339 UNIT/GM powder Apply topically to affected area 3 times a day. 60 g 1 10/16/2019 Active Dexcom G6 Portable Power Tool Repairer Device Use as directed. To test blood sugars 4 times a day Dx E11.9 1 Each 0 09/14/2020 Active Dexcom G6 Transmitter Use as directed. To test blood sugars 4 times a day. Change every 90 days. Dx E11.9 1 Each 3 09/14/2020 Active OneTouch Verio In Vitro Strip (Glucose Blood) TESTING once daily 100 Strip 3 10/29/2020 Active OneTouch Delica Plus Oyqkxg40A TESTING once daily 100 Each 3 10/29/2020 [...] current situation. 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 if a ocean transportation intermediary plan is made -continue lexapro Impaired mobility [...] pain 01/24/2012 01/17/2017 Genetic Sleep Disorder Research Other*[id number] 05/13/2011 04/07/2016 Obstructive sleep apnea 01/18/2011 12/27/19 [...] Visit Gynecology Obstetrics [facility] [address] [facility] [address] 09/07/2022 Hem/Onc Treatment Hematology Oncology [place], Chair 5 Hem Onc Scenery 200 [facility] [place] [address] 09/07/2022 Office Visit Pharmacy Pharmacist1, [facility] [address] [facility] [place] [address] 09/13/2022 Home Visit Family Medicine Kaylee Barakat, Community Health Shuttler Car [address] [place] [address] 09/14/2022 PulmDiagnostic Pulmonary Function West, Pft 132 [facility] [place] [address] 09/26/2022 Office Visit Endocrinology Alberta Duque PA-C [address] [place] [address] 09/28/2022 Hem/Onc Treatment Hematology Oncology [place], Chair 7 Hem Onc [facility] [address] [place] [address] 09/28/2022 Office Visit Pulmonary Vivian Phillips CRNP 132 [facility] [place] [address] 10/04/2022 Home Visit [facility] July Poe RN 132 [facility] [place] [address] 10/26/2022 Office Visit Hematology Oncology Tono Sanchez MD [address] [place] [address] 12/06/2022 Office Visit Gastroenterology Lyssa Stout CRNP 132 [facility] [place] [address] 02/10/2023 Office Visit Sleep Disorders Love Francisco DO 132 [facility] [place] [address] Scheduled Procedures Name Priority Associated Diagnoses Date/Ti [...] encounter Medical Devices Implanted Type Area Senior Software Engineer Device Identifier Shelf Expiration Date Model / Serial / Lot Microtech Sure Clip Implanted:Qty: 2 on 06/03/2020 by Janis Hatch DO at OR [facility] Clip N/A: Colon 04/21/2022 [facility]-F-26-2 35-C-R / / [id number] documented as of this encounter Advance Directives Documents on File Type Date Recorded Patient Vp Integrity Expl anation Advance Directives and Living Will 04/29/2021 ADVANCE DIRECTIVE / LIVING WILL LIVING WILL AND HEALTH CARE POA Power of Export Agent 04/29/2021 POWER OF A [facility] [...] the patient have Health Care Power of Export Agent? No Code Status History Code Status Date Activated Date Inactivated Comments Full Code 12/27/2021 2:50 PM 12/27/2021 8:02 PM This order reflects the patients wishes and were consensually agreed upon. Question Answer Comments Discussion of Advance Directives occurred with: Not Discussed Does the patient have a Living Will? No Does the patient have Health Care Power of Export Agent? No Full Code 03/31/2021 8:57 PM [...] Syed Bustos Spouse Emergency Contact Care Teams Web Analytics Specialist Relationship Specialty Start Date End Date Vanita Dunn MD [address] [place] [address] PCP - General Family Medicine 03/16/21 documented as of this encounter
--- OUTSIDE RECORDS SUMMARY | 2023-05-10 17:49 | External Medical Summary ---
Author Name Unknown Address Unknown Organization K01:LABORATORY [facility] - [address] [place] [address] Laboratory Report Ordering Provider Test Date Status ODESSA GUSMAN 08/30/2022 15:52:44 Final Observation Date Value Abnormality Reference (Units ) Status Anisocytosis [Presence] in Blood by Light microscopy 08/30/2022 15:52:44 Slight Abnormal None Seen Final Macrocytes [Presence] in Blood by Light microscopy 08/30/2022 15:52:44 Present Abnormal None Seen Final Ovalocytes [Presence] in Blood by Light microscopy 08/30/2022 15:52:44 Few Abnormal None Seen Final Performing Location LAB[facility]ORY [facility] - [address] [place] [address]
--- OUTSIDE RECORDS SUMMARY | 2023-05-10 17:50 | External Medical Summary | Summary of Care ---
Author Name Unknown Organization [facility] Address [place] [address] Care Team Providers Care Light Bulb Replacer Name Role Phone Vanita Dunn MD Primary Care Provid er Reason for Visit * Reason Onset Date Comments [facility]: Maintenance 08/29/2022 Encounter Details Date Type Department Care Team Description 08/29/2022 Scheduled Telephone [facility], [facility] [address] [place] [address] Coordinator, [facility] 132 [facility] [place] [address] 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 documented as of this encounter (statuses as of 08/29/2022) Medications Medication Sig Dispensed Refills Start Date End Date Status nystatin (NYSTOP) 629818 UNIT/GM powder Apply topically to affected area 3 times a day. 60 g 1 10/16/2019 Active Dexcom G6 Television News Photographer Device Use as directed. To test blood sugars 4 times a day Dx E11.9 1 Each 0 09/14/2020 Active Dexcom G6 Transmitter Use as directed. To test blood sugars 4 times a day. Change every 90 days. Dx E11.9 1 Each 3 09/14/2020 Active OneTouch Verio In Vitro Strip (Glucose Blood) TESTING once daily 100 Strip 3 10/29/2020 Active OneTouch Delica Plus Ihqqlr76P TESTING once daily 100 Each 3 10/29/2020 [...] l Fumarate 160-4.5 MCG/ACT Inhalation Aerosol Inhale by mouth 2 Puffs 2 times a day . 10.2 g 1 09/27/2021 Active Dexcom G6 [...] Inhalation Aerosol Powder Breath Activated (Advair Diskus) Inhale 1 Puff by mouth in the [...] as of this encounter (statuses as of 08/29/2022) Active Problems Problem Noted Date Hypertensive heart [...] as of this encounter (statuses as of 08/29/2022) Resolved Problems Problem Noted Date Resolved Date [...] pain 01/24/2012 01/17/2017 Genetic Sleep Disorder Research Other*[id number] 05/13/2011 04/07/2016 Obstructive sleep apnea 01/18/2011 12/27/19 [...] as of this encounter (statuses as of 08/29/2022) Immunizations Name Administration Dates Next Due COVID-19 [...] Miscellaneous Notes * Telephone Encounter - Silvia DEVAN Squires - 08/29/2022 12:30 PM EST Images from the original note were not included. [facility] Telephonic Nurse Follow-Up Call [facility] Subprogram: Focused Care Management (3-9 months) Follow Up Call Type: Routine follow up call / Status Check Acute issue requiring follow-up call: Other: f/u COLON; Did pt start Medrol pack? Objective: 08/23/2022 08/17/2022 08/12/2022 07/28/2022 07/27/2022 VITALS ACROSS ENCOUNTERS BP 118/64 108/66 110/68 110/64 115/69 Pulse 70 72 70 61 64 Weight 113.4 kg wheelchair -- Wheelchair BMI 50.47 BMI 50.49 kg/m2 Multiple values from one day are sorted in reverse-chronological order Lab Results Component Value Date WBC AUTO - [facility] 3.68 (L) 08/17/2022 Lab Results Component Value Date WBC AUTO - [facility] 3.68 (L) 08/17/2022 HGB - [facility] 10.6 (L) 08/17/2022 PLATELET AUTO - [facility] 75 (L) 08/17/2022 No results found for: SODIUM - [facility], [...] symptoms Current Concerns: Called and spoke with patient and caregiver over speaker phone. Prior to call patient took a dose of Tylenol for COLON. She started Medrol pack today. Explained that it may not take affect right away. Encouraged caregiver to be sure patient is drinking plenty of fluids. Patient did not call PCP to setup appt but states they will do so today. Disposition: Routed to [facility] and/or [facility] Team for further advice Future Visits Scheduled: Future Appointments-next 60 days Date/Time Provider Specialty Dept Phone 08/29/2022 2:00 PM [facility] [place] [facility] [phone] 08/30/2022 1:30 PM (Arrive by 1:15 PM) ZAK Bolton Gastroenterology [phone] 09/01/2022 1:30 PM (Arrive by 1:15 PM) Concetta Khan MD Gynecology Obstetrics [phone] 09/07/2022 11:30 AM Chair 5 Hem Onc [facility] Hematology Oncology [phone] 09/07/2022 2:10 PM [facility] Pharmacist1 Pharmacy [phone] 09/13/2022 2:00 PM Kaylee Barakat [facility] [employer] [place] Family Medicine [phone] 09/14/2022 2:30 PM Pft [place] Pulmonary Function [phone] 09/26/2022 3:30 PM (Arrive by 3:15 PM) Alberta Duque PA-C Endocrinology [phone] 09/28/2022 1:00 PM Chair 7 Hem Onc [place] Hematology Oncology [phone] 09/28/2022 3:30 PM (Arrive by 3:15 PM) ZAK Conn[place] Pulmonary [phone] 10/04/2022 2:30 PM July Poe RN [facility] [phone] 10/26/2022 1:15 PM (Arrive by 1:00 PM) Tono Sanchez MD Hematology Oncology [phone] 02/10/2023 12:00 PM (Arrive by 11:45 AM) Love Francisco DO Sleep Disorders [phone] Silvia Squires LPN documented in this encounter Plan of Treatment Upcoming Encounters Date Type Specialty Care Team Description 08/30/2022 Office Visit Gastroenterology Lyssa Stout CRNP [address] [place] [address] 08/30/2022 Office Visit Family Medicine Memo Snider MD [address] [place] [address] 09/01/2022 Office Visit Gynecology Obstetrics Concetta Khan MD [address] [place] [address] 09/07/2022 Hem/Onc Treatment Hematology Oncology [place], Chair 5 Hem Onc [address] [facility] [address] 09/07/2022 Office Visit Pharmacy Pharmacist1, [facility] [address] [place], [place] [address] 09/13/2022 Home Visit Family Medicine Kaylee Barakat, Community Health [employer] [address] [place] [address] 09/14/2022 PulmDiagnostic Pulmonary Function West, Pft 132 [facility] [place] [address] 09/26/2022 Office Visit Endocrinology Alberta Duque PA-C [address] [place] [address] 09/28/2022 Hem/Onc Treatment Hematology Oncology [place], Chair 7 Hem Onc [facility] 200 [place] [address] 09/28/2022 Office Visit Pulmonary Vivian Phillips CRNP 132 [facility] [place] [address] 10/04/2022 Home Visit [facility] July Poe RN 132 [facility] [place] [address] 10/26/2022 Office Visit Hematology Oncology Tono Sanchez MD 200 [place] [address] 02/10/2023 Office Visit Sleep Disorders Love Francisco DO 132 [place] [address] Scheduled Procedures Name Priority Associated Diagnoses Date/Ti [...] this encounter Medical Devices Implanted Type Area Ordnance Truck Installation Supervisor Device Identifier Shelf Expiration Date Model / Serial / Lot Microtech Sure Clip Implanted:Qty: 2 on 06/03/2020 by Janis Hatch, DO at OR [facility] Clip N/A: Colon 04/21/2022 [facility]-F-26-2 35-C-R / / [id number] documented as of this encounter Advance Directives Documents on File Type Date Recorded Patient It Infrastructure Architect Expl anation Advance Directives and Living Will 04/29/2021 ADVANCE DIRECTIVE / LIVING WILL LIVING WILL AND HEALTH CARE POA Power of Registered Nurse Fetal 04/29/2021 POWER [facility] A [facility] [...] the patient have Health Care Power of Registered Nurse Fetal? No Code Status History Code Status Date Activated Date Inactivated Comments Full Code 12/27/2021 2:50 PM 12/27/2021 8:02 PM This order reflects the patients wishes and were consensually agreed upon. Question Answer Comments Discussion of Advance Directives occurred with: Not Discussed Does the patient have a Living Will? No Does the patient have Health Care Power of Registered Nurse Fetal? No Full Code 03/31/2021 8:57 PM 04/03/2021 [...] Syed Juli Spouse Emergency Contact Care Teams Light Bulb Replacer Relationship Specialty Start Date End Date Vanita Dunn MD [address] [place] [address] PCP - General Family Medicine 03/16/21 documented as of this encounter
--- OUTSIDE RECORDS SUMMARY | 2023-05-10 17:50 | External Medical Summary | Summary of Care ---
Author Name Unknown Organization [facility] [place] [place] [address] Care Team Providers Care Teaching Artist Name Role Phone Vanita Dunn MD Primary Care Provid er Reason for Visit * Reason Onset Date Comments Sleep Apnea Device 08/29/2022 Encounter Details Date Type Department Care Team Description 08/29/2022 Telephone Sleep Lab, [facility] [address] [place], [place] [phone] [facility], Nurse Sleep Disorders [address] [place], [place] [phone] Sleep Apnea Device 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 documented as of this encounter (statuses as of 08/29/2022) Medications Medication Sig Dispensed Refills Start Date End Date Status nystatin (NYSTOP) 836332 UNIT/GM powder Apply topically to affected area 3 times a day. 60 g 1 10/16/2019 Active Dexcom G6 Asbestos Shingle Roofer Device Use as directed. To test blood sugars 4 times a day Dx E11.9 1 Each 0 09/14/2020 Active Dexcom G6 Transmitter Use as directed. To test blood sugars 4 times a day. Change every 90 days. Dx E11.9 1 Each 3 09/14/2020 Active OneTouch Verio In Vitro Strip (Glucose Blood) TESTING once daily 100 Strip 3 10/29/2020 Active OneTouch Delica Plus [id number] TESTING once daily 100 Each 3 10/29/2020 [...] pain 01/24/2012 01/17/2017 Genetic Sleep Disorder Research Other*[id number] 05/13/2011 04/07/2016 Obstructive sleep apnea 01/18/2011 12/27/19 [...] encounter Miscellaneous Notes * Telephone Encounter - SARAH Calix - 08/29/2022 12:08 PM EST ASV orders were placed into the [employer] portal on 08.29.2022 @ 1209 documented in this encounter Plan of Treatment Upcoming Encounters Date Type Specialty Care Team Description 08/29/2022 Scheduled Telephone [facility], [facility] [address] [place] [address] 08/30/2022 Office Visit Gastroenterology Lyssa Stout CRNP [address] [place] [address] 09/01/2022 Office Visit Gynecology Obstetrics Concetta Khan MD [address] [place] [address] [place] [address] 09/07/2022 Hem/Onc Treatment Hematology Oncology [place], Chair 5 Hem Onc Scenery 200 [facility] [address] 09/07/2022 Office Visit Pharmacy Pharmacist1, [facility] 200 [facility] [address] 09/13/2022 Home Visit Family Medicine Kaylee Barakat, Community Health Lithographic Retoucher Apprentice [address] [place] [address] 09/14/2022 PulmDiagnostic Pulmonary Function West, Pft [address] [place] [address] 09/26/2022 Office Visit Endocrinology Alberta Duque PA-C [address] [place], [place] [phone] 09/28/2022 Hem/Onc Treatment Hematology Oncology [place], Chair 7 Hem Onc [facility] 200 [facility] [address] 09/28/2022 Office Visit Pulmonary Vivian Phillips CRNP [address] [place] [address] 10/04/2022 [facility] Visit [facility] July Poe RN [address] [place] [address] 10/26/2022 Office Visit Hematology Oncology Tono Sanchez [facility] 200 [facility] [address] 02/10/2023 Office Visit Sleep Disorders Love Francisco, [address] [place] [address] Scheduled Procedures Name Priority Associated Diagnoses Date/Ti [...] this encounter Medical Devices Implanted Type Area Crewman Main Battle Tank Device Identifier Shelf Expiration Date Model / Serial / Lot Microtech Sure Clip Implanted:Qty: 2 on 06/03/2020 by Janis Hatch DO at OR [facility] Clip N/A: Colon 04/21/2022 [facility]-F-26-2 35-C-R / / [id number] documented as of this encounter Advance Directives Documents on File Type Date Recorded Patient Aluminum Hydroxide Process Operator Expl anation Advance Directives and Living Will 04/29/2021 ADVANCE DIRECTIVE / LIVING WILL LIVING WILL AND HEALTH CARE POA Power of Repair Cameraman 04/29/2021 [facility]OWER [facility] A [facility] [...] the patient have Health Care Power of Repair Cameraman? No Code Status History Code Status Date Activated Date Inactivated Comments Full Code 12/27/2021 2:50 PM 12/27/2021 8:02 PM This order reflects the patients wishes and were consensually agreed upon. Question Answer Comments Discussion of Advance Directives occurred with: Not Discussed Does the patient have a Living Will? No Does the patient have Health Care Power of Repair Cameraman? No Full Code 03/31/2021 8:57 PM 04/03/2021 [...] Syed Bustos Spouse Emergency Contact Care Teams Teaching Artist Relationship Specialty Start Date End Date Vanita Dunn MD [address] [place] [address] PCP - General Family Medicine 03/16/21 documented as of this encounter
--- OUTSIDE RECORDS SUMMARY | 2023-05-10 17:51 | External Medical Summary | Summary of Care ---
Author Name Unknown Organization [place] [address] Care Team Providers Care Billboard Erector Name Role Phone Vanita Dunn MD Primary Care Provid er Reason for Visit * Reason Comments IV Therapy Venofer Encounter Details Date Type Department Care Team Description 08/17/2022 Hem/Onc Treatment Hematology/Oncology Treatment, [place] [address] [place] [address] Mary[place], Chair 7 Hem Onc Scenery [address] [facility] [place] [address] Iron deficiency anemia due to chronic blood loss*; Thrombocytopenia (HCC) 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 documented as of this encounter (statuses as of 08/17/2022) Medications Medication Sig Dispensed Refills Start Date End Date Status nystatin (NYSTOP) 289006 UNIT/GM powder Apply topically to affected area 3 times a day. 60 g 1 10/16/2019 Active Dexcom G6 Forest Pathology Teacher Device Use as directed. To test blood sugars 4 times a day Dx E11.9 1 Each 0 09/14/2020 Active Dexcom G6 Transmitter Use as directed. To test blood sugars 4 times a day. Change every 90 days. Dx E11.9 1 Each 3 09/14/2020 Active OneTouch Verio In Vitro Strip (Glucose Blood) TESTING once daily 100 Strip 3 10/29/2020 Active OneTouch Delica Plus [id number] TESTING once daily 100 Each 3 10/29/2020 [...] and 1 Puff before bedtime. 0 Active Hospital, Clinic, or Other Facility [...] as of this encounter (statuses as of 08/17/2022) Active Problems Problem Noted Date Hypertensive heart [...] 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 if a ferry terminal supervisor plan is made -continue lexapro Impaired [...] as of this encounter (statuses as of 08/17/2022) Resolved Problems Problem Noted Date Resolved Date [...] pain 01/24/2012 01/17/2017 Genetic Sleep Disorder Research Other*[id number] 05/13/2011 04/07/2016 Obstructive sleep apnea 01/18/2011 12/27/19 [...] as of this encounter (statuses as of 08/17/2022) Immunizations Name Administration Dates Next Due COVID-19 [...] Sign Reading Time Taken Comments Blood Pressure 108/66 08/17/2022 2:59 PM EST Pulse 72 08/17/2022 2:59 PM EST Temperature 36.3 C (97.3 F) 08/17/2022 2:59 PM ES T Respiratory Rate 20 08/17/2022 2:59 PM EST Oxygen Saturation - - Inhaled [...] Nursing Notes * Renetta Schuler RN - 08/17/2022 4:06 PM EST Pt completed treatment without issues. [...] No coverage. * Renetta Schuler RN - 08/17/2022 2:59 PM EST Pt presents to clinic in personal power w/c. Pt has no new symptoms/concerns to report since last treatment. VAD accessed; Venofer infusing. Safety and Risk for Injury Patient will remain free from injury. Ensure appropriate safety devices are available. Provide and maintain safe environment. documented in this encounter Plan of Treatment Upcoming Encounters Date Type Specialty Care Team Description 08/23/2022 Office Visit Endocrinology Alberta Duque PA-C [address] [place] [address] 08/25/2022 [facility] Visit [facility] July Poe RN 132 [place] [address] 08/30/2022 Office Visit Gastroenterology Lyssa Stout CRNP 132 [facility] [address] 09/01/2022 Office Visit Gynecology Obstetrics Concetta Khan MD [address] [place], [place] [phone] 09/07/2022 Hem/Onc Treatment Hematology Oncology [place], Chair 5 Hem Onc Scenery [address] [place] [address] 09/07/2022 Office Visit Pharmacy Pharmacist1, [facility] [address] [place] [address] 09/14/2022 PulmDiagnostic Pulmonary Function West, Pft [address] [place] [address] 09/28/2022 Hem/Onc Treatment Hematology Oncology [place], Chair 7 Hem Onc Sc[address]ery [address] [place] [address] 09/28/2022 Office Visit Pulmonary Reynaldo Marquez MD [address] [place] [phone] 10/26/2022 Office Visit Hematology Oncology Tono Sanchez MD 200 [place] [address] 02/10/2023 Office Visit Sleep Disorders Love Francisco, DO 132 [facility] [place] [address] Scheduled Procedures Name Priority Associated Diagnoses Date/Ti [...] this encounter Medical Devices Implanted Type Area Shop Repairer Device Identifier Shelf Expiration Date Model / Serial / Lot Microtech Sure Clip Implanted:Qty: 2 on 06/03/2020 by Janis Hatch DO at OR [facility] Clip N/A: Colon 04/21/2022 [facility]-F-26-2 35-C-R / / [id number] documented as of this encounter Procedures Procedure Name Priority Date/Time Associated Diagnosis Comments DIFFERENTIAL, AUTOMATED STAT 08/17/2022 4:15 PM EST Thrombocytopenia (HCC) CBC WITH WBC DIFFERENTIAL STAT 08/17/2022 4:15 PM EST Thrombocytopenia (HCC) CBC STAT 08/17/2022 4:15 PM EST Thrombocytopenia (HCC) DIFFERENTIAL, TECHNOLOGIST REVIEW Routine 08/17/2022 4:15 PM EST Thrombocytopenia (HCC) documented in this encounter Results * (ABNORMAL) DIFFERENTIAL, TECHNOLOGIST REVIEW (08/17/2022 4:15 PM EST) Pathologist [facility] nRBCs 08/17/2022 4:29 PM EST [facility] 56-02 Anisocytosis Slight(A) None Seen 08/17/2022 4:29 PM EST [facility] 56-02 Elliptocytes Few(A) None Seen 08/17/2022 4:29 PM EST [facility] 56- Microcytosis Present(A ) None Seen 08/17/2022 4:29 PM EST [facility] 56- Tear Drop Cells Few(A) None Seen 4:29 PM EST [facility] 56-02 Blood Venous blood specimen / Unknown Venipuncture / Unknown 08/17/2022 4:15 PM EST 08/17/2022 4:15 PM EST Tono Sanchez MD LAB BLOOD ORDERABLES [place] [address] [place] [address] * (ABNORMAL) DIFFERENTIAL, AUTOMATED (08/17/2022 4:15 PM EST) [facility] WBC 3.68(L) 4.00 - 10.80 K/uL 08/17/2022 4:29 PM EST [facility] 56- Neutrophils % 59.5 40.0 - 75.0 % 08/17/2022 4:29 PM EST [facility] 56- Lymphocytes % 18.2 18.0 - 42.0 % 08/17/2022 4:29 PM EST [facility] 56-02 Monocytes % 12.0(H) 1.0 - 11.0 % 08/17/2022 4:29 PM EST [facility] 56- Eosinophils % 9.5(H) 0.0 - 6.0 % 08/17/2022 4:29 PM EST [facility] 56- Basophils % 0.8 0.0 - 2.0 % 08/17/2022 4:29 PM EST [facility] 56 Absolute Neutrophils 2.19 1.80 - 7.70 K/uL 08/17/2022 4:29 PM EST [facility] 56 Absolute Lymphocytes 0.67(L) 1.00 - 4.80 K/ul 08/17/2022 4:29 PM EST [facility] 56 Absolute Monocytes 0.44 0.00 - 1.10 K/uL 08/17/2022 4:29 PM EST [facility] 56 Absolute Eosinophils 0.35 0.00 - 0.70 K/uL 08/17/2022 4:29 PM EST [facility] 56 Absolute Basophils 0.03 0.00 - 0.20 K/uL 08/17/2022 4:29 PM [facility] 56 Blood Venous blood specimen / Unknown Venipuncture / Unknown 08/17/2022 4:15 PM EST 08/17/2022 4:15 PM EST Tono Sanchez MD LAB BLOOD ORDERABLES [facility] 56- [address] [place] [address] * (ABNORMAL) CBC (08/17/2022 4:15 PM EST) WBC 3.68(L) 4.00 - 10.80 K/uL 08/17/2022 4:29 PM [facility] 56- RBC 2.79 3.85 - 5.15 M/uL 08/17/2022 4:29 PM [facility] 56 HGB 10.6(L) 12.0 - 15.3 g/dL 08/17/2022 4:29 PM EST [facility] 56 HCT 33.4(L) 36.0 - 45.2 % 08/17/2022 4:29 PM [facility] 56 MCV 119.7 81.5 - 97.5 fL 08/17/2022 4:29 PM EST [facility] 56 MCH 38.0 27.0 - 34.0 pg 08/17/2022 4:29 PM [facility] 56 MCHC 31.7 32.0 - 36.0 g/dL 08/17/2022 4:29 PM EST [facility] 56 RDW 17.4 11.5 - 15.5 % 08/17/2022 4:29 PM EST [facility] 56 PLT 75(L) 140 - 400 K/uL 08/17/2022 4:29 PM EST [facility] 56 MPV 12.6 6.6 - 11.1 fL 08/17/2022 4:29 PM EST [facility] 56 Blood Venous blood specimen / Unknown Venipuncture / Unknown 08/17/2022 4:15 PM EST 08/17/2022 4:15 PM EST Tono Sanchez MD LAB BLOOD ORDERABLES [facility] [address] [place] [address] documented in this encounter Visit Diagnoses Diagnosis Iron deficiency anemia due to chronic blood loss- Primary Iron deficiency anemia secondary to blood loss (chronic) Thrombocytopenia (HCC) Thrombocytopenia, unspecified documented in this encounter Administered Medications Active Administered Medications - up to 3 most recent administrations Medication Order MAR Action Action Date Dose Rate Site diphenhydrAMINE (Benadryl) inj 50 mg 50 mg, IV Push, ONCE PRN Other, Hypersensitivity Reaction, Starting on Mon08/17/22 at 1420, Until [place] 08/18/22 at 1419, For 24 hours EPINEPHrine 1 MG/ML inj 0.3 mg 0.3 mg, Intramuscular, ONCE PRN Other, Hypersensitivity Reaction or Anaphylaxis, Starting on Mon08/17/22 at 1420, Until [place] 08/18/22 at 1419, For 24 hours hEParin 100 UNIT/ML Lock Flush inj 500 Units 500 Units (5 mL), IV Lock, PRN Other, IV Flush, Starting on Mon08/17/22 at 1420, Until [place] 08/18/22 at 1419, For 24 hours, Do not flush if lock, PICC, or central line not in place; IV infusing or unable to flush. Given 08/17/2022 4:00 PM EST 500 Units Hydrocortisone Sod Suc (PF) (Solu-Cortef) inj 100 mg 100 mg, IV Push, ONCE PRN Other, Hypersensitivity Reaction, Starting on Mon08/17/22 at 1420, Until [place] 08/18/22 at 1419, For 24 hours NSS infusion 500 mL, Intravenous, at 50 mL/hr, CONTINUOUS, Starting on Mon08/17/22 at 1530, Until [place] 08/18/22 at 0129 Start Infusion 08/17/2022 2:20 PM EST 500 mL 50 mL/hr sodium chloride 0.9 % flush central line 10 mL 10 mL, IV Push, PRN Other, IV Flush, Starting on Mon08/17/22 at 1420, Until [place] 08/18/22 at 1419, For 24 hours, Do not flush if lock, PICC, or central line not in place; IV infusing or unable to flush. 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 No Code Status History Code Status Date Activated Date Inactivated Comments Full Code 12/27/2021 2:50 PM 12/27/2021 8:02 PM This order reflects the patients wishes and were consensually agreed upon. Question Answer Comments Discussion of Advance Directives occurred with: Not Discussed Does the patient have a Living Will? No Does the patient have Health Care Power of Detective Bureau Chief? No Full Code 03/31/2021 8:57 PM 04/03/2021 [...] on File Name Relationship Healthcare Agent [facility] Communication Syed Bustos Spouse Emergency Contact Care Teams Billboard Erector Relationship Specialty Start Date End Date Vanita Dunn MD [address] [place] [address] PCP - General Family Medicine 03/16/21 documented as of this encounter
--- OUTSIDE RECORDS SUMMARY | 2023-05-10 17:51 | External Medical Summary | Summary of Care ---
Author Name Unknown Organization [place] [address] Care Team Providers Care Artificial Breeding Distributor Name Role Phone Vanita Dunn MD Primary Care Provid er Reason for Visit * Reason Comments [facility]: Maintenance Encounter Details Date Type Department Care Team Description 08/23/2022 Home Visit [facility], [facility] 132 [facility] [place] [address] July Poe, RN 132 [facility] [place] [address] 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 documented as of this encounter (statuses as of 08/23/2022) Medications Medication Sig Dispensed Refills Start Date End Date Status nystatin (NYSTOP) 254006 UNIT/GM powder Apply topically to affected area 3 times a day. 60 g 1 10/16/2019 Active Dexcom G6 Rigging Up Man Device Use as directed. To test blood sugars 4 times a day Dx E11.9 1 Each 0 09/14/2020 Active Dexcom G6 Transmitter Use as directed. To test blood sugars 4 times a day. Change every 90 days. Dx E11.9 1 Each 3 09/14/2020 Active OneTouch Verio In Vitro Strip (Glucose Blood) TESTING once daily 100 Strip 3 10/29/2020 Active OneTouch Delica Plus [id number] TESTING once daily 100 Each 3 10/29/2020 [...] as of this encounter (statuses as of 08/23/2022) Active Problems Problem Noted Date Hypertensive heart [...] as of this encounter (statuses as of 08/23/2022) Resolved Problems Problem Noted Date Resolved Date [...] pain 01/24/2012 01/17/2017 Genetic Sleep Disorder Research Other*[id number] 05/13/2011 04/07/2016 Obstructive sleep apnea 01/18/2011 12/27/19 [...] as of this encounter (statuses as of 08/23/2022) Immunizations Name Administration Dates Next Due COVID-19 [...] Sign Reading Time Taken Comments Blood Pressure 118/64 08/23/2022 2:43 PM EST Pulse 70 08/23/2022 2:43 PM EST Temperature 36.7 C (98 F) 08/23/2022 2:43 PM EST Respiratory Rate 18 08/23/2022 2:43 PM EST Oxygen Saturation 93% 08/23/2022 2:43 PM EST Inhaled Oxygen Concentration - - [...] Progress Notes * July Poe RN - 08/23/2022 1:20 PM EST [facility] [employer] Body Estimator Visit Date: 08/23/2022 Time: 2:20 PM Name: Shaina Bustos : 1955 Current Concerns: Pt seen for return RNCM visit Continues to have some vaginal bleeding - usually has spotting every day - sometimes stops for a day or two and sometimes is more heavy bleeding but then goes away again She is scheduled to see gyne next week for f/u Pt denies any acute concerns She states she is "feeling fine", has good days and bad days Has area on right great toe at base of toenail that is open and draining small amt serosanguinous fluid - caregiver is applying triple abx ointment and band aid - will call and have seen by her gospel worker if no improvement She has had this happen several times in past from hitting foot when up in w/c Physical Exam: BP 118/64 | Pulse 70 | Temp 36.7 C (98 F) | Resp 18 | SpO2 93% [...] and time. Mental status is at baseline. Problems/Symptoms: Review of Systems Constitutional: Positive for fatigue. HENT: Negative. Eyes: Negative. Respiratory: Negative. Cardiovascular: Positive for leg swelling. Gastrointestinal: Positive for abdominal pain (right side - intermittent). Endocrine: Negative. Genitourinary: Positive for vaginal bleeding. Musculoskeletal: Positive for gait problem (non-ambulatory). Skin: Positive for wound (right great toe - 0.2cm x 0.4cm open area base of nail). Medication Reconciliation: (See medication list) Does patient take medications as ordered: Yes Patient Well Being: PHQ2/9: No questionnaires available. No change in living situation No falls - uses svetlana lift for transfers bed to w/c [facility] Completed this Visit: No. Routine visit and No falls since last visit Advanced Care Planning: Living Will. and Healthcare POA. Patient's Goals of Care: 1. Remain in home 2. Feel better overall 3. Be able to get out more Reinforcement/Education: DIABETES: -Blood sugar testing [...] a day 5 servings fruit/vegetable per day Reinforced safety education and fall prevention. and [...] daily if no bm within 24 hrs Podiatry referral if Home Interventions Provided: Home Intervention: Other; Evaluation Reinforced current Plan of Care, including self-management and medication regimen Patient's 'Red Flags': 1. Increased cough with yellow or green sputum 2. Change in mental status 3. No bm in 24 hrs Patient Needs to Remember: Call [facility] at with any new or worsening health concerns or problems, red flag symptoms. Referrals Needed: Other none Follow Up: Is there cellular connectivity/connectivity in the home? Yes Does the patient have internet in the home? Yes Patient encouraged to call the intake phone number for all urgent but not emergent issues. Is the patient new to [facility] within the last 30 days? No, Assess appropriateness for upcoming telehealth visits. Cancel telehealth visits & schedule home visit with care marketing team lead(s)as indicated. Provider is in agreement with Plan of Care: Yes Scheduled to follow up with patient in 3 weeks with EMILE and 3 weeks after with KATELYN. July Poe RN 08/23/2022 2:20 PM documented in this encounter Plan of Treatment Upcoming Encounters Date Type Specialty Care Team Description 08/30/2022 Office Visit Gastroenterology Lyssa Stout CRNP [address] [place] [address] 09/01/2022 Office Visit Gynecology Obstetrics Concetta Khan MD 400 [facility] [place] [address] 09/07/2022 Hem/Onc Treatment Hematology Oncology [place], Chair 5 Hem Onc Sc[address] [facility] [place] [address] 09/07/2022 Office Visit Pharmacy Pharmacist1, [facility] Sp [address] [place] [address] 09/13/2022 Home Visit Family Medicine Kaylee Barakat, Community Health Market Research Specialist [address] [place], [place] [phone] 09/14/2022 PulmDiagnostic Pulmonary Function West, [address] [place] [address] 09/26/2022 Office Visit Endocrinology Alberta Duque PA-C [address] [place], [place] [phone] 09/28/2022 Hem/Onc Treatment Hematology Oncology [place], Chair 7 Hem Onc Sc[address] [facility] [place] [address] 09/28/2022 Office Visit Pulmonary Reynaldo Marquez MD [address] [place] [phone] 10/04/2022 [facility] Visit [facility] July Poe, RN [address] [place] [address] 10/26/2022 Office Visit Hematology Oncology Tono Sanchez MD 200 [place] [address] 02/10/2023 Office Visit Sleep Disorders Love Francisco, DO [address] [place] [address] Scheduled Procedures Name Priority Associated Diagnoses Date/Ti [...] this encounter Medical Devices Implanted Type Area Respiratory Care Technician Device Identifier Shelf Expiration Date Model / Serial / Lot Microtech Sure Clip Implanted:Qty: 2 on 06/03/2020 by Janis Hatch DO at OR [facility] Clip N/A: Colon 04/21/2022 [facility]-F-26-2 35-C-R / / [id number] documented as of this encounter Advance Directives Documents on File Type Date Recorded Patient Skein Yarn Dyer Helper Expl anation Advance Directives and Living Will 04/29/2021 ADVANCE DIRECTIVE / LIVING WILL LIVING WILL AND HEALTH CARE POA Power of Farm Butcher 04/29/2021 [facility]OWER [facility] A [facility] [...] patient have Health Care Power of Farm Butcher? No Code Status History Code Status Date Activated Date Inactivated Comments Full Code 12/27/2021 2:50 PM 12/27/2021 8:02 PM This order reflects the patients wishes and were consensually agreed upon. Question Answer Comments Discussion of Advance Directives occurred with: Not Discussed Does the patient have a Living Will? No Does the patient have Health Care Power of Farm Butcher? No Full Code 03/31/2021 8:57 PM 04/03/2021 [...] on File Name Relationship [facility] Communication Syed Bustos Spouse Emergency Contact Care Teams Artificial Breeding Distributor Relationship Specialty Start Date End Date Vanita Dunn MD [address] [place] [address] PCP - General Family Medicine 03/16/21 documented as of this encounter
--- OUTSIDE RECORDS SUMMARY | 2023-05-10 17:51 | External Medical Summary | Summary of Care ---
Author Name Unknown Organization [place] [address] Care Team Providers Care Lace Winder Name Role Phone Vanita Dunn MD Primary Care Provid er Encounter Details Date Type Department Care Team Description 08/28/2022 Telephone Family Practice [address] [place] [address] Christo Willard MD [address] [place] [address] 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 documented as of this encounter (statuses as of 08/28/2022) Medications Medication Sig Dispensed Refills Start Date End Date Status nystatin (NYSTOP) 479507 UNIT/GM powder Apply topically to affected area 3 times a day. 60 g 1 10/16/2019 Active Dexcom G6 Underground Production Foreperson Device Use as directed. To test blood sugars 4 times a day Dx E11.9 1 Each 0 09/14/2020 Active Dexcom G6 Transmitter Use as directed. To test blood sugars 4 times a day. Change every 90 days. 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 Nsaids contraindicated. Try medoral dose pack. Patient informed will increase BG. DC if no respond to COLON after first dose. F/up with PCP documented in this encounter Plan of Treatment Upcoming Encounters Date Type Specialty Care Team Description 08/29/2022 Scheduled Telephone [facility], [facility] [address] [place] [address] 08/30/2022 Office Visit Gastroenterology Lyssa Stout CRNP [address] [place] [address] 09/01/2022 Office Visit Gynecology Obstetrics Concetta Khan MD [address] [place] [address] [place] [address] 09/07/2022 Hem/Onc Treatment Hematology Oncology [place], Chair 5 Hem Onc Scenery 200 [facility], [place] [address] 09/07/2022 Office Visit Pharmacy Pharmacist1, [facility] 200 [facility], [place] [address] 09/13/2022 Home Visit Family Medicine Kaylee Barakat, Community [facility] Compound Machine Operator [address] [place] [address] 09/14/2022 PulmDiagnostic Pulmonary Function West, P[address] [place] [address] 09/26/2022 Office Visit Endocrinology Alberta Duque PA-C [address] [place], [place] [phone] 09/28/2022 Hem/Onc Treatment Hematology Oncology [place], Chair 7 Hem Onc [facility] 200 [facility], [place] [address] 09/28/2022 Office Visit Pulmonary [facility] Phillips [facility] [place] [address] 10/04/2022 [facility] Visit [facility] July Poe RN [address] [place] [address] 10/26/2022 Office Visit Hematology Oncology Tono Sanchez MD 200 [place] [address] 02/10/2023 Office Visit Sleep Disorders Love Francisco, [address] [place] [address] Scheduled Procedures Name Priority Associated Diagnoses Date/Ti [...] this encounter Medical Devices Implanted Type Area Aviation Safety Officer Device Identifier Shelf Expiration Date Model / Serial / Lot Microtech Sure Clip Implanted:Qty: 2 on 06/03/2020 by Janis Hatch DO at OR [facility] Clip N/A: Colon 04/21/2022 [facility]-F-26-2 35-C-R / / [id number] documented as of this encounter Advance Directives Documents on File Type Date Recorded 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 No Code Status History Code Status Date Activated Date Inactivated Comments Full Code 12/27/2021 2:50 PM 12/27/2021 8:02 PM This order reflects the patients wishes and were consensually agreed upon. Question Answer Comments Discussion of Advance Directives occurred with: Not Discussed Does the patient have a Living Will? No Does the patient have Health Care Power of Alarm Signal Operator? No Full Code 03/31/2021 8:57 PM [...] Syed Bustos Spouse Emergency Contact Care Teams Lace Winder Relationship Specialty Start Date End Date Vanita Dunn MD [address] [facility] [place] [id number] PCP - General Family Medicine 03/16/21 documented as of this encounter
--- OUTSIDE RECORDS SUMMARY | 2023-05-10 17:51 | External Medical Summary | Summary of Care ---
Author Name Unknown Organization [facility] [place] [address] Care Team Providers Care Solar Sales Estimator Name Role Phone Vanita Dunn MD Primary Care Provid er Reason for Visit * Reason Onset Date Comments [facility]: Acute 08/28/2022 Encounter Details Date Type Department Care Team Description 08/28/2022 Scheduled Telephone [facility], [facility] 132 [facility] [place] [address] [facility], Nurse [facility] 132 [facility] [place] [address] 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 documented as of this encounter (statuses as of 08/28/2022) Medications Medication Sig Dispensed Refills Start Date End Date Status nystatin (NYSTOP) 863877 UNIT/GM powder Apply topically to affected area 3 times a day. 60 g 1 10/16/2019 Active Dexcom G6 Chucking Lathe Operator Device Use as directed. To test blood sugars 4 times a day Dx E11.9 1 Each 0 09/14/2020 Active Dexcom G6 Transmitter Use as directed. To test blood sugars 4 times a day. Change every 90 days. Dx E11.9 1 Each 3 09/14/2020 Active OneTouch Verio In Vitro Strip (Glucose Blood) TESTING once daily 100 Strip 3 10/29/2020 Active OneTouch Delica Plus [id number] TESTING once daily 100 Each 3 10/29/2020 [...] pain 01/24/2012 01/17/2017 Genetic Sleep Disorder Research Other*[id number] 05/13/2011 04/07/2016 Obstructive sleep apnea 01/18/2011 12/27/19 [...] Telephone Encounter - Isabel Hamm RN - 08/28/2022 11:13 AM EST [facility] Triage Pt. States that she has a cough and a headache that started a few days ago and she cannot shake them. Has been taking Tylenol with little relief. 1120:PC to H# Spoke with patient. Patient identified by full name and date of Headache every day x 2-3 weeks, above eyes - b/l Nothing makes better or worse Taking Tylenol BIPAP @ hs - wears nightly, oxygen 2 LPM No oxygen during the day SPO2 spot checks - done while on phone Sat- 94, HR-69 BG - normal - 194 now (150-250), uses Dexcom Eating and drinking no concerns. Sent to [facility] director of regional sales - Dr. Luis A Willard for recommendations: -Medrol dose pack ordered -It will cause BG to spike (be aware) -If no relief after first dose - then d/c as it will raise BG -Need f/u with PCP - please schedule Monday Discussed all the above recommendations with patient, she verbalizes understanding. PC f/u placed for tomorrow. Zelda Hamm RN [facility] Residential Field Manager/ [place] Toll Free Number: documented in this encounter Plan of Treatment Upcoming Encounters Date Type Specialty Care Team Description 08/29/2022 Scheduled Telephone [facility] Cli[facility]er, [facility] [address] [place] [address] 08/30/2022 Office Visit Gastroenterology Lyssa Stout CRNP [address] [place] [address] 09/01/2022 Office Visit Gynecology Obstetrics Concetta Khan MD [address] [place] [address] [place] [address] 09/07/2022 Hem/Onc Treatment Hematology Oncology Maryellen, Chair 5 Hem Onc [address] [place] [address] 09/07/2022 Office Visit Pharmacy Pharmacist1, [facility] Sp [address] [place] [address] 09/13/2022 Home Visit Family Medicine Kaylee Barakat, Community [facility] Sewer Repairer [address] [place] [address] 09/14/2022 PulmDiagnostic Pulmonary Function [place], Pft [address] [place] [address] 09/26/2022 Office Visit Endocrinology lAberta Duque PA-C [address] [place] [address] 09/28/2022 Hem/Onc Treatment Hematology Oncology [place], Chair 7 Hem Onc [facility] 200 [place] [address] 09/28/2022 Office Visit Pulmonary Vivian Phillips CRNP 132 [facility] [place] [address] 10/04/2022 Home Visit [facility] July Poe RN 132 [place] [address] 10/26/2022 Office Visit Hematology Oncology Tono Sanchez MD [address] [facility] [place] [address] 02/10/2023 Office Visit Sleep Disorders Love Francisco DO [address] [facility] [address] Scheduled Procedures Name Priority Associated Diagnoses Date/Ti [...] this encounter Medical Devices Implanted Type Area Nascar Driver Device Identifier Shelf Expiration Date Model / Serial / Lot Microtech Sure Clip Implanted:Qty: 2 on 06/03/2020 by Janis Hatch DO at OR [facility] Clip N/A: Colon 04/21/2022 [facility]-F-26-2 35-C-R / / [id number] documented as of this encounter Advance Directives Documents on File Type Date Recorded 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 No Code Status History Code Status Date Activated Date Inactivated Comments Full Code 12/27/2021 2:50 PM 12/27/2021 8:02 PM This order reflects the patients wishes and were consensually agreed upon. Question Answer Comments Discussion of Advance Directives occurred with: Not Discussed Does the patient have a Living Will? No Does the patient have Health Care Power of Wink Cutter Operator? No Full Code 03/31/2021 8:57 PM [...] Bustos Spouse Emergency Contact Care Teams Solar Sales Estimator Relationship Specialty Start Date End Date Vanita Dunn MD [address] [place] [address] PCP - General Family Medicine 03/16/21 documented as of this encounter
--- OUTSIDE RECORDS SUMMARY | 2023-05-10 17:51 | External Medical Summary ---
Author Name Unknown Address Unknown Organization K09[facility] [place] [address] Laboratory Report Ordering Provider Test Date Status JACOB CORBETT 08/17/2022 16:15:33 Final Observation Date Value Abnormality Reference (Units ) Status WBC, Total 08/17/2022 16:15:33 3.68 Below low normal 4. 00-10.80 (K/uL) Final RBC 08/17/2022 16:15:33 2.79 3.85-5.15 (M/uL) Final Hemoglobin 08/17/2022 16:15:33 10.6 Below low normal 12 .0-15.3 (g/dL) Final HCT 08/17/2022 16:15:33 33.4 Below low normal 36. 0-45.2 (%) Final MCV 08/17/2022 16:15:33 119.7 81.5-97.5 (fL) Final MCH 08/17/2022 16:15:33 38.0 27.0-34.0 (pg) Final MCHC 08/17/2022 16:15:33 31.7 32.0-36.0 (g/dL) Final RDW 08/17/2022 16:15:33 17.4 11.5-15.5 (%) Final Platelets 08/17/2022 16:15:33 75 Below low normal 140 -400 (K/uL) Final MPV 08/17/2022 16:15:33 12.6 6.6-11.1 ( fL) Final Performing Location [facility] [address]
--- OUTSIDE RECORDS SUMMARY | 2023-05-10 17:52 | External Medical Summary | Summary of Care ---
Author Name Unknown Organization [place] [address] Care Team Providers Care Compensator Name Role Phone Kojo Dunn MD Primary Care Provid er Reason for Visit * Reason Comments eRx-Medication Refill Encounter Details Date Type Department Care Team Description 08/02/2022 Refill [facility] [address] [place] [address] Kojo Dunn MD [address] [place] [address] Recurrent major depressive disorder, in partial remission ([facility]) 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 documented as of this encounter (statuses as of 08/04/2022) Medications Medication Sig Dispensed Refills Start Date End Date Status nystatin (NYSTOP) 193717 UNIT/GM powder Apply topically to affected area 3 times a day. 60 g 1 0 Active Dexcom G6 Pound Attendant Device Use as directed. To test blood sugars 4 times a day Dx E11.9 1 Each 0 1 Active Dexcom G6 Transmitter Use as directed. To test blood sugars 4 times a day. Change every 90 days. Dx E11.9 1 Each 3 1 Active OneTouch Verio In Vitro Strip (Glucose Blood) TESTING once daily 100 Strip 3 1 Active OneTouch Delica Plus [id number] TESTING once daily 100 Each 3 1 [...] Budesonide-Formoter ol Fumarate 160-4.5 MCG/ACT Inhalation Aerosol (Symbicort) Inhale by mouth 2 Puffs 2 times a day . 10.2 g 1 2 Active Dexcom G6 [...] TO ACCESSING. 30 g 0 2 Active Furosemide 20 MG Oral Tablet (Lasix) TAKE 1 TABLET BY MOUTH DAILY as needed for lower extremity swelling 90 Tablet 1 2 Active Lactulose 10 GM/15ML Oral Solution [...] MOUTH DAILY 90 Tablet 0 2 Active Escitalopram Oxalate 20 MG Oral Tablet (Lexapro)Indication s:Recurrent major depressive disorder, in partial remission (HCC) TAKE 1 TABLET BY MOUTH DAILY 90 Tablet 3 2 08/04/20 22 Discontinued Hospital, Clinic, or Other Facility [...] as of this encounter (statuses as of 08/04/2022) Active Problems Problem Noted Date Hypertensive heart [...] as of this encounter (statuses as of 08/04/2022) Resolved Problems Problem Noted Date Resolved Date [...] pain 01/24/2012 01/17/2017 Genetic Sleep Disorder Research Other*[id number] 05/13/2011 04/07/2016 Obstructive sleep apnea 01/18/2011 12/27/19 [...] as of this encounter (statuses as of 08/04/2022) Immunizations Name Administration Dates Next Due COVID-19 [...] encounter Miscellaneous Notes * Telephone Encounter - Vazquez Sawant RPh - 08/04/2022 6:42 AM ESTSigned Prescriptions: Disp Refills Escitalopram Oxalate 20 MG Oral Tablet (Le*90 Tab*0 Sig: TAKE 1 TABLET BY MOUTH DAILYAuthorizing Provider: KOJO DUNN User: VAZQUEZ SAWANT- documented in this encounter Plan of Treatment Upcoming Encounters Date Type Specialty Care Team Description 08/09/2022 Home Visit Family Medicine Kaylee Barakat, Community [facility] File Drawer Finisher [address] [facility] [place] [address] 08/12/2022 Office Visit Sleep Disorders Love Francisco, 132 [facility] [place] [address] 08/17/2022 Hem/Onc Treatment Hematology Oncology [place], Chair 7 Hem On[address] [place] [address] 08/23/2022 Office Visit Endocrinology Alberta Duque PA-C [address] [place] [address] 08/25/2022 Home Visit [facility] July Poe, RN [address] [place] [address] 08/30/2022 Office Visit Gastroenterology Lyssa Stout CRNP [address] [place] [address] 09/01/2022 Office Visit Gynecology Obstetrics Concetta Khan MD [address] [place] [address] 09/07/2022 Office Visit Pharmacy Pharmacist1, [facility] [address] [facility], [place] [address] 09/14/2022 PulmDiagnostic Pulmonary Function West, Pft [address] [place] [address] 09/28/2022 Office Visit Pulmonary Reynaldo Marquez MD [address] [place] [address] 10/26/2022 Office Visit Hematology Oncology Tono Sanchez MD 200 [facility], [place] [address] Scheduled Procedures Name Priority Associated Diagnoses Date/Ti [...] this encounter Medical Devices Implanted Type Area Science Manager Device Identifier Shelf Expiration Date Model / Serial / Lot Microtech Sure Clip Implanted:Qty: 2 on 06/03/2020 by Janis Hatch DO at OR [facility] Clip N/A: Colon 04/21/2022 [facility]-F-26-2 35-C-R / / [id number] documented as of this encounter Visit Diagnoses Diagnosis Recurrent major depressive disorder, in partial remission (HCC) documented in this encounter Advance Directives Documents on File Type Date Recorded 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 No Code Status History Code Status Date Activated Date Inactivated Comments Full Code 12/27/2021 2:50 PM 12/27/2021 8:02 PM This order reflects the patients wishes and were consensually agreed upon. Question Answer Comments Discussion of Advance Directives occurred with: Not Discussed Does the patient have a Living Will? No Does the patient have Health Care Power of Escort Blind? No Full Code 03/31/2021 8:57 PM 04/03/2021 [...] Name Relationship Healthcare Agent [facility] Syed Bustos Spouse Emergency Contact Care Teams Compensator Relationship Specialty Start Date End Date Kojo Dunn MD [address] [place], [place] [phone] PCP - General Family Medicine 03/16/21 documented as of this encounter
--- OUTSIDE RECORDS SUMMARY | 2023-05-10 17:52 | External Medical Summary | Summary of Care ---
Author Name Unknown Organization [place] [address] Care Team Providers Care Ethnographic Materials Conservator Name Role Phone Vanita Dunn MD Primary Care Provid er Encounter Details Date Type Department Care Team Description 08/12/2022 Office Visit Sleep Disorders Ctr [facility] [address] [facility] [place] [address] Love Francisco, [address] [facility] [place] [address] Obstructive sleep apnea*; Restrictive lung disease; Nocturnal hypoxemia 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 documented as of this encounter (statuses as of 08/12/2022) Medications Medication Sig Dispensed Refills Start Date End Date Status nystatin (NYSTOP) 745042 UNIT/GM powder Apply topically to affected area 3 times a day. 60 g 1 10/16/2019 Active Dexcom G6 Manual Machinist Device Use as directed. To test blood sugars 4 times a day Dx E11.9 1 Each 0 09/14/2020 Active Dexcom G6 Transmitter Use as directed. To test blood sugars 4 times a day. Change every 90 days. Dx E11.9 1 Each 3 09/14/2020 Active OneTouch Verio In Vitro Strip (Glucose Blood) TESTING once daily 100 Strip 3 10/29/2020 Active OneTouch Delica Plus [id number] TESTING once daily 100 Each 3 10/29/2020 [...] as of this encounter (statuses as of 08/12/2022) Active Problems Problem Noted Date Hypertensive heart [...] situation. 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 if a terminal superintendent plan is made -continue lexapro [...] as of this encounter (statuses as of 08/12/2022) Resolved Problems Problem Noted Date Resolved Date [...] pain 01/24/2012 01/17/2017 Genetic Sleep Disorder Research Other*[id number] 05/13/2011 04/07/2016 Obstructive sleep apnea 01/18/2011 12/27/19 [...] as of this encounter (statuses as of 08/12/2022) Immunizations Name Administration Dates Next Due COVID-19 [...] Sign Reading Time Taken Comments Blood Pressure 110/68 08/12/2022 11:20 AM EST Pulse 70 08/12/2022 11:20 AM EST Temperature 36.2 C (97.1 F) 08/12/2022 11:[address] Respiratory Rate 18 08/12/2022 11:20 AM EST Oxygen Saturation 98% 08/12/2022 11:20 AM EST Inhaled Oxygen Concentration - - Weight 113.4 kg (250 lb) 08/12/2022 11:20 AM EST wheelchair Height 149.9 cm (4' 11") 08/12/2022 11:20 AM EST Body Mass Index 50.49 08/12/2022 11:20 AM EST documented in this encounter Functional Status [...] as of this encounter Progress Notes * Love Francisco, DO - 08/12/2022 11:40 AM EST Sleep Medicine Follow-Up HISTORY: Shaina Bustos is a 67 year old female for follow up of severe THAD. Initially diagnosedwith sleep apneaafter presenting with snoring. [id number]: AHI33. PAP titration 08/27/2013: BiPAP 18/10 cmH2O with 2 L/min oxygen. Seen 06/22/21: [id number] with 2 L/min oxygen ( states he sets the oxygen "to the middle", unsure if this is actually a setting of 2 L/min). BiPAP was making screeching noises.[place] 9. Residual AHI 3.1 on BiPAP 18/10 cwp. Order was sent to DME to repair or replace the BiPAP due to the screeching noises. Patient qualified for change from BiPAP to NIV; NIV was ordered in July after confirming with Pulmonary. (She has additional hx of cerebral palsy, restrictive lung dz.) NPO 08/25/21 on BiPAP with 2 L/min oxygen: SpO2 chuck 89%. Adequate resolution of hypoxia with BiPAP & 2 L/min oxygen. Changed to NIV due to SOB/restrictive lung dz/CP; device received around September 2021. 10/22/21: with NIV, having skin irritation/rash/scabbing from mask. Mask fitting ordered; also suggested mask liners. 03/2022: mask fitting re-ordered. Using NIV with 2 L/min oxygen. Headache off and on. "They get bad." She has had COVID twice, the 2nd time was 3-4 weeks ago. She has been coughing a lot since then. Subjective PAP adherence: using nightly Daytime sleepiness: yes Daytime napping: "every chance I get", dozes off watching TV. Interface: lower-profile FFM Mask leak: no Dry nose or dry mouth: dry mouth (may also be medication-related) Use humidifier? No. It doesn't have one. Rash from mask: no Aerophagia: a little bit. [place] Sleepiness Scale: 11 [place] Sleepiness Scale Question 08/12/2022 11:28 AM EST - Filed by Reyna Vee LPN What is the chance you will doze off in the following situation? Sitting and reading Moderate chance of dozing Watching TV High chance of dozing Sitting inactive in a public place, such as a theater or meeting No chance of dozing As a passenger in a car for an hour without a break Slight chance of dozing Lying down to rest in the afternoon when circumstances permit High chance of dozing When sitting and talking to someone No chance of dozing When sitting quietly after lunch without alcohol Moderate chance of dozing In a car, while stopped for a few minutes in traffic No chance of dozing Score (range: 0 - 24) 11 NIV Compliance: Report received after the conclusion of today's appointment. Report date: 07/29/21 to 08/08/22 Total hours used 2232:58 Median daily usage 7:43 Average daily usage 6:12 Therapy mode: IVAPS, AutoEPAP Height 175 cm No therapeutic data is included on the report received; only usage times. Equipment: DME Provider is [facility] Uses a Astral 150 (SN [id number]). Patient Active Problem List Diagnosis Code Spinal [...] Chronic pain syndrome G89.4 MEDICATION USE AGREEMENT [id number] Cirrhosis of liver (HCC) K74.60 THAD on [...] Chronic diastolic (congestive) heart failure (HCC) I50.32 Hypertensive heart disease with congestive heart failure (HCC) I11.0 Pancytopenia (HCC) D61.818 Outpatient Medications Marked as Taking for the 08/12/22 encounter (Office Visit) with Love Francisco, DO Medication Sig Fluticasone-Salmeterol 250-50 MCG/ACT Inhalation Aerosol Powder Breath Activated (Advair Diskus) Inhale 1 Puff by mouth in the morning and 1 Puff before bedtime. Escitalopram Oxalate 20 MG Oral Tablet (Lexapro) TAKE 1 TABLET BY MOUTH DAILY Atorvastatin Calcium 80 MG Oral Tablet (Lipitor) TAKE 1 TABLET BY MOUTH AT BEDTIME Gabapentin 300 MG Oral Capsule (Neurontin) TAKE 1 CAPSULE BY MOUTH EVERY MORNING, 1 CAPSULE MIDDAY, AND 2 CAPSULES IN THE EVENING, MAY TAKE AN EXTRA DOSE IN THE MORNING AND MIDDAY IF NEEDED FOR PAIN MAX DAILY AMOUNT: 6 CAPSULES Isosorbide Mononitrate ER 30 MG Oral Tablet Extended Release 24 Hour (Imdur) TAKE 1 TABLET BY MOUTH DAILY metFORMIN HCl ER 500 MG Oral Tablet Extended Release 24 Hour (Glucophage XR) TAKE 1 TABLET EVERY DAY WITH A MEAL Nadolol 40 MG Oral Tablet (Corgard) TAKE 1 TABLET BY MOUTH DAILY Lantus SoloStar 100 UNIT/ML Subcutaneous Solution Pen-injector Inject 50 Units under the skin every night at bedtime. NovoLOG FlexPen 100 UNIT/ML Subcutaneous Solution Pen-injector 35 Units at breakfast, 39 Units before lunch, 45 Units before supper Silver sulfADIAZINE 1 % External Cream (Silvadene) Apply topically to affected area daily . Apply to wound Linzess 290 MCG Oral Capsule (linaCLOtide) TAKE 1 CAPSULE BY MOUTH ONCE DAILY BEFORE BREAKFAST BD Pen Needle Mini U/F 31G X 5 MM (Insulin Pen Needle) USE TO INJECT INSULIN FOUR TIMES DAILY. Levothyroxine Sodium 150 MCG Oral Tablet (Levoxyl) Take by mouth 1 Tablet in the morning. (at least 30 min prior to breakfast or other meds). Benzonatate 200 MG Oral Capsule Take by mouth 1 Capsule as needed in the morning AND 1 Capsule as needed at noon AND 1 Capsule as needed in the evening for Cough. traZODone HCl 50 MG Oral Tablet (Desyrel) TAKE 1 TABLET BY MOUTH AT BEDTIME Pantoprazole Sodium 20 MG Oral Tablet Delayed Release (Protonix) TAKE 2 TABLETS BY MOUTH TWICE DAILY Spironolactone 25 MG Oral Tablet (Aldactone) Take by mouth 2 Tablets in the morning. Oxybutynin Chloride 5 MG Oral Tablet (Ditropan) TAKE 1 TABLET BY MOUTH TWICE DAILY Aspirin 81 MG Oral Tablet Chewable CHEW AND SWALLOW 1 TABLET BY MOUTH ONCE DAILY Trulicity 4.5 MG/0.5ML Subcutaneous Solution Pen-injector (Dulaglutide) inject 4.5mg (1 pen) under the skin once weekly Lactulose 10 GM/15ML Oral Solution (Constulose) Take 30mL by mouth 3 TIMES daily, titrate dose for effect of 3-5 bowel movements daily Furosemide 20 MG Oral Tablet (Lasix) TAKE 1 TABLET BY MOUTH DAILY as needed for lower extremityswelling Lidocaine-Prilocaine 2.5-2.5 % External Cream (Emla) Apply topically to affected area as neededfor Other (when accessing port). APPLY TO SKIN OVER MEDIPORT & COVER 1HR PRIOR TO ACCESSING. Potassium Chloride ER 10 MEQ Oral Tablet Extended Release Take by mouth 1 Tablet in the morning. With food.. Mupirocin 2 % External Ointment (Bactroban) Apply to the right side of the nose twice daily Disposable Brief X-Large Use as directed Budesonide-Formoterol Fumarate 160-4.5 MCG/ACT Inhalation Aerosol Inhale by mouth 2 Puffs 2 times a day . Dexcom G6 Sensor use as directed to test blood sugar 4 times daily. change sensor every 10 days Fluticasone Propionate 50 MCG/ACT Nasal Suspension (Flonase) USE 2 SPRAYS IN EACH NOSTRIL ONCE DAILY DIRECTED Docusate Sodium 100 MG Oral Capsule (Colace) TAKE 1 CAPSULE BY MOUTH ONCE DAILY MEDICAL INSTRUCTIONS Please de-access patient's port. Please flush with 10 mL of NS, followed by 500 units (5 mL) of heparin. BiPAP every night at bedtime. Nitroglycerin 0.4 MG Sublingual Tablet Sublingual (Nitrostat) Place 1 Tab under the tongue every 5 minutes as needed for Pain, Chest. up to 3 doses in 15 minutes OneTouch Delica Plus [id number] TESTING once daily OneTouch Verio In Vitro Strip (Glucose Blood) TESTING once daily Dexcom G6 Manual Machinist Device Use as directed. To test blood sugars 4 times a day Dx E11.9 Dexcom G6 Transmitter Use as directed. To test blood sugars 4 times a day. Change every 90 days. Dx E11.9 nystatin (NYSTOP) 033418 UNIT/GM powder Apply topically to affected area 3 times a day. Current Facility-Administered Medications for the 08/12/22 encounter (Office Visit) with Love Francisco, DO Medication Albuterol Sulfate (Proventil) (2.5 MG/3ML) 0.083% inhalation solution 2.5 mg Albuterol Sulfate (Proventil) (5 MG/ML) 0.5% *conc* inhalation solution 2.5 mg PHYSICAL EXAM: BP 110/68 | Pulse 70 | Temp 36.2 C (97.1 F) | Resp 18 | Ht 1.499 m (4' 11") | Wt 113.4 kg (250 lb) Comment: wheelchair | SpO2 98% | BMI 50.49 kg/m | BSA 2.17 m General: alert, in motor scooter Head: NC/AT Heart: regular rate and rhythm Lungs: clear to auscultation bilaterally Neuro: speech clear and appropriate ASSESSMENT/PLAN: Obstructive sleep apnea - severe by AHI criteria, previously will treated with BiPAP, presumably still treated with NIV. - request more detailed therapy report (should be able to see tidal volumes, etc.) - good adherence; encourage continued use of NIV with all sleep - DME: [facility] - Routine cleaning and change of supplies as needed. - nocturnal oximetry on NIV & 2 L/min (due to increased headaches and s/p COVID infection) Follow-up with Sleep Medicine in 6 months. Love Francisco DO documented in this encounter Nursing Notes * Reyna Vee LPN - 08/12/2022 11:28 AM EST F/u THAD on CPAP [place] Sleepiness Scale Question 08/12/2022 11:28 AM EST - Filed by Reyna Vee LPN What is the chance you will doze off in the following situation? Sitting and reading Moderate chance of dozing Watching TV High chance of dozing Sitting inactive in a public place, such as a theater or meeting No chance of dozing As a passenger in a car for an hour without a break Slight chance of dozing Lying down to rest in the afternoon when circumstances permit High chance of dozing When sitting and talking to someone No chance of dozing When sitting quietly after lunch without alcohol Moderate chance of dozing In a car, while stopped for a few minutes in traffic No chance of dozing Score (range: 0 - 24) 11 documented in this encounter Plan of Treatment Upcoming Encounters Date Type Specialty Care Team Description 08/17/2022 Hem/Onc Treatment Hematology Oncology [place], Chair [address] [place] [address] 08/23/2022 Office Visit Endocrinology Alberta Duque PA-C [address] [place] [address] 08/25/2022 [facility] July Poe RN [address] [facility] [place] [address] 08/30/2022 Office Visit Gastroenterology Lyssa Stout CRNP [address] [facility] [place] [address] 09/01/2022 Office Visit Gynecology Obstetrics Concetta Khan MD [address] [place] [address] 09/07/2022 Office Visit Pharmacy Pharmacist1, [facility] [address] [place] [address] 09/14/2022 PulmDiagnostic Pulmonary Function West, Pft [address] [facility] [place] [address] 09/28/2022 Office Visit Pulmonary Reynaldo Marquez MD [address] [place] [address] 10/26/2022 Office Visit Hematology Oncology Tono Sanchez MD [address] [facility] [place] [address] 02/10/2023 Office Visit Sleep Disorders Love Francisco, DO [address] [place] [address] Scheduled Orders Name Type Priority Associated Diagnoses Orde r Schedule NOCTURNAL HOME OXIMETRY (OP) Procedures Routine Obstructive sleep apnea Restrictive lung disease Nocturnal hypoxemia Ordered: 08/12/2022 Scheduled Procedures Name Priority Associated Diagnoses Date/Ti [...] this encounter Medical Devices Implanted Type Area Watermaster Device Identifier Shelf Expiration Date Model / Serial / Lot Microtech Sure Clip Implanted:Qty: 2 on 06/03/2020 by Janis Hatch DO at OR [facility] Clip N/A: Colon 04/21/2022 [facility]-F-26-2 35-C-R / / [id number] documented as of this encounter Visit Diagnoses Diagnosis Obstructive sleep apnea- Primary Obstructive sleep apnea (adult) (pediatric) Restrictive lung disease Other diseases of lung, not elsewhere classified Nocturnal hypoxemia Hypoxemia documented in this encounter Advance Directives Documents on File Type Date Recorded Patient Drug Clerk Expl anation Advance Directives and Living Will 04/29/2021 ADVANCE DIRECTIVE / LIVING WILL LIVING WILL AND HEALTH CARE POA Power of Baggageman 04/29/2021 POWER OF A [facility] [...] the patient have Health Care Power of Baggageman? No Code Status History Code Status Date Activated Date Inactivated Comments Full Code 12/27/2021 2:50 PM 12/27/2021 8:02 PM This order reflects the patients wishes and were consensually agreed upon. Question Answer Comments Discussion of Advance Directives occurred with: Not Discussed Does the patient have a Living Will? No Does the patient have Health Care Power of Baggageman? No Full Code 03/31/2021 8:57 PM 04/03/2021 [...] Syed Bustos Spouse Emergency Contact Care Teams Ethnographic Materials Conservator Relationship Specialty Start Date End Date Vanita Dunn MD [address], [place] [id number] PCP - General Family Medicine 03/16/21 documented as of this encounter
--- OUTSIDE RECORDS SUMMARY | 2023-05-10 17:52 | External Medical Summary ---
Author Name Unknown Address Unknown Organization K09[facility] [place] [address] Laboratory Report Ordering Provider Test Date Status JACOB CORBETT 08/17/2022 16:15:33 Final Observation Date Value Abnormality Reference (Units ) Status SYNC LEUKOCYTES IN BLOOD BY AUTOMATED COUNT 08/17/2022 16:15:33 3.68 Below low normal 4.00-10.80 (K/uL) Final Segs 08/17/2022 16:15:33 59.5 40.0-75.0 (%) Final Lymphs % 08/17/2022 16:15:33 18.2 18.0-42.0 (%) Final Monos 08/17/2022 16:15:33 12.0 Above high normal 1.0-11.0 (%) Final Eosinophils 08/17/2022 16:15:33 9.5 Above high normal 0.0-6.0 (%) Final Basos 08/17/2022 16:15:33 0.8 0.0-2.0 (%) Final Absolute Segs 08/17/2022 16:15:33 2.19 1.80-7.70 (K/uL) Final Lymphs, absolute 08/17/2022 16:15:33 0.67 Below low normal 1.00-4.80 (K/ul) Final Monos, Abs 08/17/2022 16:15:33 0.44 0.00-1.10 (K/uL) Final Eos, Abs 08/17/2022 16:15:33 0.35 0.00-0.70 (K/uL) Final Basos, Abs 08/17/2022 16:15:33 0.03 0.00-0.20 (K/uL) Final Performing Location [facility] [address]
--- OUTSIDE RECORDS SUMMARY | 2023-05-10 17:52 | External Medical Summary ---
Author Name Unknown Address Unknown Organization K09[facility] [place] [address] Laboratory Report Ordering Provider Test Date Status JACOB CORBETT 08/17/2022 16:15:33 Final Observation Date Value Abnormality Reference (Units ) Status Nucleated erythrocytes/100 leukocytes [Ratio] in Blood by Automated count 08/17/2022 16:15:33 Final Anisocytosis [Presence] in Blood by Light microscopy 08/17/2022 16:15:33 Slight Abnormal None Seen Final Elliptocytes [Presence] in Blood by Light microscopy 08/17/2022 16:15:33 Few Abnormal None Seen Final Microcytes [Presence] in Blood by Light microscopy 08/17/2022 16:15:33 Present Abnormal None Seen Final Dacrocytes [Presence] in Blood by Light microscopy 08/17/2022 16:15:33 Few Abnormal None Seen Final Performing Location [facility] [address]
--- OUTSIDE RECORDS SUMMARY | 2023-05-10 17:53 | External Medical Summary | Summary of Care ---
Author Name Unknown Organization [place] [address] Care Team Providers Care Keno Writer Name Role Phone Vanita Dunn MD Primary Care Provid er Reason for Visit * Reason Onset Date Comments Advice 07/27/2022 [facility] Encounter Details Date Type Department Care Team Description 07/27/2022 Telephone [facility] [address] [place] [address] Vanita Dunn MD [address] [place] [address] Advice ([facility]) 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 documented as of this encounter (statuses as of 08/02/2022) Medications Medication Sig Dispensed Refills Start Date End Date Status nystatin (NYSTOP) 494839 UNIT/GM powder Apply topically to affected area 3 times a day. 60 g 1 10/16/2019 Active Dexcom G6 Commercial Housekeeper Device Use as directed. To test blood sugars 4 times a day Dx E11.9 1 Each 0 09/14/2020 Active Dexcom G6 Transmitter Use as directed. To test blood sugars 4 times a day. Change every 90 days. Dx E11.9 1 Each 3 09/14/2020 Active OneTouch Verio In Vitro Strip (Glucose Blood) TESTING once daily 100 Strip 3 10/29/2020 Active OneTouch Delica Plus [id number] TESTING once daily 100 Each 3 10/29/2020 [...] Active Budesonide-Formoterol Fumarate 160-4.5 MCG/ACT Inhalation Aerosol (Symbicort) Inhale [...] With food.. 90 Tablet 3 12/21/2021 Active Escitalopram Oxalate 20 MG Oral Tablet (Lexapro)Indications: Recurrent major depressive disorder, in partial remission (HCC) TAKE 1 TABLET BY MOUTH DAILY 90 Tablet 3 01/16/2022 Active Lidocaine-Prilocaine 2.5-2.5 % External Cream (Emla)Indications:Enc [...] to wound 85 g 11 07/06/2022 Active Hospital, Clinic, or Other Facility Administered [...] as of this encounter (statuses as of 08/02/2022) Active Problems Problem Noted Date Hypertensive heart [...] as of this encounter (statuses as of 08/02/2022) Resolved Problems Problem Noted Date Resolved Date [...] pain 01/24/2012 01/17/2017 Genetic Sleep Disorder Research Other*[id number] 05/13/2011 04/07/2016 Obstructive sleep apnea 01/18/2011 12/27/19 [...] as of this encounter (statuses as of 08/02/2022) Immunizations Name Administration Dates Next Due COVID-19 [...] encounter Miscellaneous Notes * Telephone Encounter - Josselin Gaspar LPN - 08/02/2022 2:11 PM EST [facility] * Telephone Encounter - THAD Chowdhury - 07/27/2022 1:12 PM EST Marie [facility] ancillary said the request for pt's candace lift [facility] documented in this encounter Plan of Treatment Upcoming Encounters Date Type Specialty Care Team Description 08/09/2022 Home Visit Family Medicine Kaylee Barakat, [facility] Protein Purification Scientist [address] [place] [address] 08/12/2022 Office Visit Sleep Disorders Love Francisco DO [address] [facility] [place] [address] 08/17/2022 Hem/Onc Treatment Hematology Oncology [place], Chair 7 Hem Onc Scenery [address] [place] [address] 08/23/2022 Office Visit Endocrinology Alberta Duque PA-C [address] [place] [address] 08/25/2022 [facility] Visit [facility] July Poe RN [address] [facility] [place] [address] 08/30/2022 Office Visit Gastroenterology Lyssa Stout CRNP [address] [place] [address] 09/01/2022 Office Visit Gynecology Obstetrics Concetta Khan MD [address] [place] [address] 09/07/2022 Office Visit Pharmacy Pharmacist1, [facility] [address] [place] [address] 09/14/2022 PulmDiagnostic Pulmonary Function West, Pft [address] [place] [address] 09/28/2022 Office Visit Pulmonary Reynaldo Marquez MD [address] [place] [address] 10/26/2022 Office Visit Hematology Oncology Tono Sanchez MD 200 [facility], [place] [address] Scheduled Procedures Name Priority Associated Diagnoses Date/Ti [...] this encounter Medical Devices Implanted Type Area Certified Energy Manager Device Identifier Shelf Expiration Date Model / Serial / Lot Microtech Sure Clip Implanted:Qty: 2 on 06/03/2020 by Janis Hatch DO at OR [facility] Clip N/A: Colon 04/21/[address] [facility]-F-26-2 35-C-R / / [id number] documented as of this encounter Visit Diagnoses Diagnosis Other cerebral palsy (HCC)- Primary documented in this encounter Advance Directives Documents on File Type Date Recorded Patient Certified First Assistant Expl anation Advance Directives and Living Will 04/29/2021 ADVANCE DIRECTIVE / LIVING WILL LIVING WILL AND HEALTH CARE POA Power of Rocket Engine Tester 04/29/2021 POWER OF A [facility] [...] the patient have Health Care Power of Rocket Engine Tester? No Code Status History Code Status Date Activated Date Inactivated Comments Full Code 12/27/2021 2:50 PM 12/27/2021 8:02 PM This order reflects the patients wishes and were consensually agreed upon. Question Answer Comments Discussion of Advance Directives occurred with: Not Discussed Does the patient have a Living Will? No Does the patient have Health Care Power of Rocket Engine Tester? No Full Code 03/31/2021 8:57 PM [...] File Name Relationship Healthcare Agent [facility] p Communication Syed Bustos Spouse Emergency Contact Care Teams Keno Writer Relationship Specialty Start Date End Date Vanita Dunn MD [address] [place] [address] PCP - General Family Medicine 03/16/21 documented as of this encounter
--- OUTSIDE RECORDS SUMMARY | 2023-05-10 17:53 | External Medical Summary | Summary of Care ---
Author Name Unknown Organization [place] [address] Care Team Providers Care Contract Management Specialist Name Role Phone Kojo Dunn MD Primary Care Provid er Reason for Visit * Reason Comments eRx-Medication Refill Encounter Details Date Type Department Care Team Description 07/27/2022 Refill [facility] [address] [place] [address] Kojo Dunn MD [address] [place] [address] Recurrent major depressive disorder, in partial remission (HCC); HTN, goal below 140/90; DM type 2 with diabetic peripheral neuropathy (HCC); Diabetic foot (HCC) 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 documented as of this encounter (statuses as of 07/29/2022) Medications Medication Sig Dispensed Refills Start Date End Date Status nystatin (NYSTOP) 470409 UNIT/GM powder Apply topically to affected area 3 times a day. 60 g 1 0 Active Dexcom G6 Safety Person Device Use as directed. To test blood sugars 4 times a day Dx E11.9 1 Each 0 1 Active Dexcom G6 Transmitter Use as directed. To test blood sugars 4 times a day. Change every 90 days. Dx E11.9 1 Each 3 1 Active OneTouch Verio In Vitro Strip (Glucose Blood) TESTING once daily 100 Strip 3 1 Active OneTouch Delica Plus [id number] TESTING once daily 100 Each 3 1 [...] With food.. 90 Tablet 3 2 Active Escitalopram Oxalate 20 MG Oral Tablet (Lexapro)Indication s:Recurrent major depressive disorder, in partial remission (HCC) TAKE 1 TABLET BY MOUTH DAILY 90 Tablet 3 05/08/202 2 Active Lidocaine-Prilocain e 2.5-2.5 % External [...] MOUTH DAILY 90 Tablet 1 2 Active metFORMIN HCl ER 500 MG Oral Tablet Extended Release 24 Hour (Glucophage XR) Take one tablet by mouth daily with a meal 90 Tab 3 1 07/29/20 22 Discontinued Nadolol 40 MG Oral Tablet (Corgard)Indication s:HTN, goal below 140/90 TAKE 1 TABLET BY MOUTH ONCE DAILY 90 Tablet 1 2 07/29/20 22 Discontinued Atorvastatin Calcium 80 MG Oral Tablet (Lipitor) TAKE 1 TABLET BY MOUTH AT BEDTIME 90 Tablet 1 2 07/29/20 22 Discontinued Isosorbide Mononitrate ER 30 MG Oral Tablet Extended Release 24 Hour (Imdur) TAKE 1 TABLET BY MOUTH DAILY 90 Tablet 1 2 07/29/20 22 Discontinued Gabapentin 300 MG Oral Capsule (Neurontin)Indicati ons:DM [...] as of this encounter (statuses as of 07/29/2022) Active Problems Problem Noted Date Hypertensive heart [...] as of this encounter (statuses as of 07/29/2022) Resolved Problems Problem Noted Date Resolved Date [...] pain 01/24/2012 01/17/2017 Genetic Sleep Disorder Research Other*[id number] 05/13/2011 04/07/2016 Obstructive sleep apnea 01/18/2011 12/27/19 [...] as of this encounter (statuses as of 07/29/2022) Immunizations Name Administration Dates Next Due COVID-19 [...] Telephone Encounter - Kojo Dunn MD - 07/29/2022 5:00 PM EST Signed Prescriptions: Disp Refills Nadolol 40 MG Oral Tablet (Corgard) 90 Tab*1 Sig: TAKE 1 TABLET BY MOUTH DAILY Authorizing Provider: KOJO DUNN Ordering User: SOPHIA MONTANA Atorvastatin Calcium 80 MG Oral Tablet (Li*90 Tab*1 Sig: TAKE 1 TABLET BY MOUTH AT BEDTIME Authorizing Provider: KOJO DUNN Ordering User: SOPHIA MONTANA metFORMIN HCl ER 500 MG Oral Tablet Extend*90 Tab*1 Sig: TAKE 1 TABLET EVERY DAY WITH A MEAL Authorizing Provider: KOJO DUNN Ordering User: SOPHIA MONTANA Gabapentin 300 MG Oral Capsule (Neurontin) 360 Ca*0 Sig: TAKE 1 CAPSULE BY MOUTH EVERY MORNING, 1 CAPSULE MIDDAY, AND 2 CAPSULES IN THE EVENING, MAY TAKE AN EXTRA DOSE IN THE MORNING AND MIDDAY IF NEE DED FOR PAIN MAX DAILY AMOUNT: 6 CAPSULES Authorizing Provider: KOJO DUNN Isosorbide Mononitrate ER 30 MG Oral Table*90 Tab*1 Sig: TAKE 1 TABLET BY MOUTH DAILY Authorizing Provider: KOJO DUNN Ordering User: SOPHIA MONTANA Refused Prescriptions: Disp Refills Escitalopram Oxalate 20 MG Oral Tablet (Le*90 Tab*0 Sig: SHEYLA E 1 TABLET BY MOUTH DAILY Refused By: SOPHIA MONTANA Reason for Refusal: Too soon * Telephone Encounter - Sophia Montana [facility] - 07/29/2022 6:55 AM ESTPending Prescriptions: Disp Refills Gabapentin 300 MG Oral Capsule (Neurontin) 360 Ca*0 Sig: TAKE 1 CAPSULE BY MOUTH EVERY MORNING, 1 CAPSULE MIDDAY, AND 2 CAPSULES IN THE EVENING, MAY TAKE AN EXTRA DOSE IN THE MORNING AND MIDDAY IF NEEDED FOR PAIN MAX DAILY AMOUNT: 6 CAPSULES Signed Prescriptions: Disp Refills Nadolol 40 M G Oral Tablet (Corgard) 90 Tab*1 Sig: TAKE 1 TABLET BY MOUTH DAILY Authorizing Provider: KOJO DUNN Ordering User: SOPHIA MONTANA Atorvastatin Calcium 80 MG Oral Tablet (Li*90 Tab*1 Sig: TAKE 1 TABLET BY MOUTH AT BEDTIME Authorizing Provider: KOJO DUNN Ordering User: SOPHIA MONTANA metFORMIN HCl ER 500 MG Oral Tablet Extend*90 Tab*1 Sig: T CARLOS 1 TABLET EVERY DAY WITH A MEAL Authorizing Provider: KOJO DUNN Ordering User: SOPHIA MONTANA Isosorbide Mononitrate ER 30 MG Oral Table*90 Tab*1 Sig: TAKE 1 TABLET BY MOUTH DAILY Authorizing Provider: KOJO DUNN Ordering User: SOPHIA MONTANA Refused Prescriptions: Disp Refills Escitalopram Oxalate 20 MG Oral Tablet (Le*90 Tab*0 Sig: TAKE 1 TABLET BY MOUTH DAILY Refused By: SOPHIA MONTANA Reason for Refusal: Too soon * Telephone Encounter - Sophia Montana RP - 07/29/2022 6:47 AM EST Pending Prescriptions: Disp Refills Gabapentin 300 MG Oral Capsule (Neurontin*360 Ca*0 Sig: TAKE 1 CAPSULE BY MOUTH EVERY MORNING, 1 CAPSULE MIDDAY, AND 2 CAPSULES IN THE EVENING, MAY TAKE AN EXTRA DOSE IN THE MORNING AND MIDDAY IF NEEDED FOR PAIN MAX DAILY AMOUNT: 6 CAPSULES Signed Prescriptions: Disp Refills Nadolol 40 MG Oral Tablet (Corgard) 90 Tab*1 Sig: TAKE 1 TABLET BY MOUTH DAILY Authorizing Provider: KOJO DUNN Ordering User: SOPHIA MONTANA Atorvastatin Calcium 80 MG Oral Tablet (Li*90 Tab*1 Sig: TAKE 1 TABLET BY MOUTH AT BEDTIME Authorizing Provider: KOJO DUNN Ordering User: SOPHIA MONTANA metFORMIN HCl ER 500 MG Oral Tablet Extend*90 Tab*1 Sig: TAKE 1 TABLET EVERY DAY WITH A MEAL Authorizing Provider: KOJO DUNN Ordering User: SOHPIA MONTANA Isosorbide Mononitrate ER 30 MG Oral Table*90 Tab*1 Sig: TAKE 1 TABLET BY MOUTH DAILY Authorizing Provider: KOJO DUNN Ordering User: SOPHIA MONTANA Refused Prescriptions: Disp Refills Escitalopram Oxalate 20 MG Oral Tablet (Le*90 Tab*0 Sig: TAKE 1 TABLET BY MOUTH DAILY Refused By: SOPHIA MONTANA Reason for Refusal: Too soon Last Visit: 06/13/2022 (in office), 09/17/2021 (telemedicine) Next Visit: Visit date not found If no future appointments scheduled, and last appointment is greater than a year ago, please schedule patient for a follow-up appointment Last date the medication was ordered: 05/05/22 Is this request for a controlled substance?No Urine Drug Screen:No results found. However, due to the size of the patient record, not all encounters were searched. Please check Results Review for a complete set of results. Patient Phone Numbers Labs: Lab Results Component Value Date/Time CREAT 0.8 05/19/2022 02:49 PM CREAT 0.72 12/18/2021 12:00 AM CREAT 0.6 09/24/2020 05:16 PM POTASSIUM 4.0 05/19/2022 02:49 PM POTASSIUM 4.3 12/18/2021 12:00 AM POTASSIUM 4.0 09/24/2020 05:16 PM TSH 0.70 07/06/2022 01:37 PM TSH 0.69 07/14/2020 04:24 PM LDLCALC 46 09/14/2021 03:22 PM LDLCALC 43 04/05/2019 06:40 AM LDLDIRECT 46 02/21/2020 11:43 AM ALT 30 04/28/2022 02:21 PM ALT 23 08/21/2020 04:35 PM HGBA1C 7.4 (H) 05/19/2022 02:49 PM HGBA1C 9.9 (H) 07/06/2020 05:24 AM documented in this encounter Plan of Treatment Upcoming Encounters Date Type Specialty Care Team Description 08/09/2022 Home Visit Family Medicine Kaylee Barakat, [facility] Tailer [address] [place] [address] 08/12/2022 Office Visit Sleep Disorders Love Francisco, DO [address] [facility] [place] [address] 08/17/2022 Hem/Onc Treatment Hematology Oncology [place], Chair 7 Hem Onc [address], [place] [address] 08/23/2022 Office Visit Endocrinology Alberta Duque PA-C [address] [place] [address] 08/25/2022 Home Visit [facility] July Poe, RN [address] [facility] [place] [address] 08/30/2022 Office Visit Gastroenterology Lyssa Stout CRNP [address] [facility] [place] [address] 09/01/2022 Office Visit Gynecology Obstetrics Concetta Khan MD [address], [place] [id number] 09/07/2022 Office Visit Pharmacy Pharmacist1, [facility] [address] [facility] [place] [address] 09/14/2022 PulmDiagnostic Pulmonary Function [place], Pft [address] [facility] [place] [address] 09/28/2022 Office Visit Pulmonary Reynaldo Marquez MD [address] [place] [address] 10/26/2022 Office Visit Hematology Oncology Tono Sanchez MD [address] [place] [address] Scheduled Procedures Name Priority Associated Diagnoses Date/Ti [...] this encounter Medical Devices Implanted 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 Device Identifier Shelf Expiration Date Model / Serial / Lot [employer] Sure Clip Implanted:Qty: 2 on 06/03/2020 by Janis Hatch DO at OR [facility] Clip N/A: Colon 04/21/2022 [id number]-F-[id number] 35-C-[id number] / / [id number] documented as of this encounter Visit Diagnoses Diagnosis Recurrent major depressive disorder, in partial remission (HCC) HTN, goal below 140/90 Unspecified essential hypertension DM type 2 with diabetic peripheral neuropathy (HCC) Type II or unspecified type diabetes mellitus with neurological manifestations, not stated as uncontrolled Diabetic foot (HCC) Type II or unspecified type diabetes mellitus with other specified manifestations, not stated as uncontrolled documented in this encounter Advance Directives Documents on File Type Date Recorded 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 No Code Status History Code Status Date Activated Date Inactivated Comments Full Code 12/27/2021 2:50 PM 12/27/2021 8:02 PM This order reflects the patients wishes and were consensually agreed upon. Question Answer Comments Discussion of Advance Directives occurred with: Not Discussed Does the patient have a Living Will? No Does the patient have Health Care Power of Administrative Program Specialist? No Full Code 03/31/2021 8:57 PM [...] Bustos Spouse Emergency Contact Care Teams Contract Management Specialist Relationship Specialty Start Date End Date Kojo Dunn MD [address] [place] [address] PCP - General Family Medicine 03/16/21 documented as of this encounter
--- OUTSIDE RECORDS SUMMARY | 2023-05-10 17:53 | External Medical Summary | Summary of Care ---
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 60 g 1 10/16/2019 Active Dexcom G6 History Professor Device Use as directed. To test blood sugars 4 times a day Dx E11.9 1 Each 0 09/14/2020 Active Dexcom G6 Transmitter Use as directed. To test blood sugars 4 times a day. Change every 90 days. Dx E11.9 1 Each 3 09/14/2020 Active OneTouch Verio In Vitro Strip (Glucose Blood) TESTING once daily 100 Strip 3 10/29/2020 Active OneTouch Delica Plus [id number] TESTING once daily 100 Each 3 10/29/2020 [...] ONCE DAILY 68 Cap 0 05/29/2021 Active metFORMIN HCl ER 500 MG Oral Tablet Extended Release 24 Hour (Glucophage XR) Take one tablet by mouth daily with a meal 90 Tab 3 06/02/2021 Active Fluticasone Propionate 50 MCG/ACT Nasal Suspension [...] MOUTH DAILY 90 Tablet 3 01/16/2022 Active Nadolol 40 MG Oral Tablet (Corgard)Indication s:HTN, goal below 140/90 TAKE 1 TABLET BY MOUTH ONCE DAILY 90 Tablet 1 01/18/2022 Active Lidocaine-Prilocain e 2.5-2.5 % External Cream (Emla)Indications:E ncounter for antineoplastic chemotherapy Apply topically to affected area as needed for Other (when accessing port). APPLY TO SKIN OVER MEDIPORT & COVER 1HR PRIOR TO ACCESSING. 30 g 0 02/10/2022 Active Atorvastatin Calcium 80 MG Oral Tablet (Lipitor) TAKE 1 TABLET BY MOUTH AT BEDTIME 90 Tablet 1 02/15/2022 Active Furosemide 20 MG Oral Tablet (Lasix) TAKE 1 TABLET BY MOUTH DAILY as needed for lower extremity swelling 90 Tablet 1 02/15/2022 Active Isosorbide Mononitrate ER 30 MG Oral Tablet Extended Release 24 Hour (Imdur) TAKE 1 TABLET BY MOUTH DAILY 90 Tablet 1 02/15/2022 Active Lactulose 10 [...] TWICE DAILY 180 Tablet 1 04/10/2022 Active Gabapentin 300 MG Oral Capsule (Neurontin)Indicati ons:DM type 2 with diabetic peripheral neuropathy (HCC),Diabetic foot (HCC) take 1 capsule by mouth every morning, 1 capsule midday and 2 capsules in the evening. may take an extra dose in the morning and midday if needed for pain. max daily amount:6 capsules 360 Capsule 0 05/05/2022 Active Spironolactone 25 MG Oral Tablet (Aldactone) [...] at bedtime. 45 mL 3 07/28/2022 Active NovoLOG FlexPen 100 UNIT/ML Subcutaneous Solution Pen-injectorIndicat ions:Type 2 diabetes mellitus with hemoglobin A1c goal of less than 8.0% (HCC) 35 Units at breakfast, 39 Units before lunch, 45 Units before supper 120 mL 3 04/06/2022 2 Discontinue d(Refill) Lantus SoloStar 100 UNIT/ML Subcutaneous Solution Pen-injectorIndicat ions:Type 2 diabetes mellitus with hemoglobin A1c goal of less than 8.0% (HCC) Inject under the skin 50 Units every night at bedtime . 45 mL 3 04/20/2022 2 Discontinue d(Refill) Hospital, Clinic, or Other Facility [...] as of this encounter (statuses as of 07/28/2022) Active Problems Problem Noted Date Hypertensive heart [...] current situation. 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 -continue lexapro Impaired mobility [...] as of this encounter (statuses as of 07/28/2022) Resolved Problems Problem Noted Date Resolved Date [...] pain 01/24/2012 01/17/2017 Genetic Sleep Disorder Research Other*[id number] 05/13/2011 04/07/2016 Obstructive sleep apnea 01/18/2011 12/27/19 [...] as of this encounter (statuses as of 07/28/2022) Immunizations Name Administration Dates Next Due COVID-19 [...] Sign Reading Time Taken Comments Blood Pressure 110/64 07/28/2022 11:28 AM EST Pulse 61 07/28/2022 11:28 AM EST Temperature 35.6 C (96 F) 07/28/2022 11:28 AM EST Respiratory Rate - - Oxygen Saturation 96% 07/28/2022 11:28 AM EST Inhaled Oxygen Concentration - - [...] as of this encounter Progress Notes * Joel Jordan MD - 07/28/2022 11:40 AM EST Subjective: Shaina Bustos is a 67 year old female Chief Complaint Patient presents with Follow Up HPI: Shaina Bustos is a 67 year old female who presents with a chief complaint of Follow Up Here for recheck, accompanies, recent episode of covid last April, debilitated but continues to improve. reports she is better, uses motorized wheelchair, needs repairs requests an order Diabetes is about the same, HbA1c was 7.2%, on insulin, needs refills, has dexcom monitor is her terminal carman, non ambulatory Recent lab: Component Latest Ref Rng 05/19/2022 2:49 PM 05/19/2022 2:51 PM WBC 4.00 - 10.80 K/uL 3.67 (L) Neutrophils % 40.0 - 75.0 % 58.1 Lymphocytes % 18.0 - 42.0 % 20.7 Monocytes % 1.0 - 11.0 % 12.5 (H) Eosinophils % 0.0 - 6.0 % 7.9 (H) Basophils % 0.0 - 2.0 % 0.8 Absolute Neutrophils 1.80 - 7.70 K/uL 2.13 Absolute Lymphocytes 1.00 - 4.80 K/ul 0.76 (L) Absolute Monocytes 0.00 - 1.10 K/uL 0.46 Absolute Eosinophils 0.00 - 0.70 K/uL 0.29 Absolute Basophils 0.00 - 0.20 K/uL 0.03 BUN 6 - 20 mg/dL 18 WBC 4.00 - 10.80 K/uL 3.67 (L) Creatinine 0.5 - 1.0 mg/dL 0.8 RBC 3.85 - 5.15 M/uL 2.84 Estimated Glomerular Filtration Rate >=60 mL/min 83 HGB 12.0 - 15.3 g/dL 10.4 (L) Sodium 135 - 146 mmol/L 143 HCT 36.0 - 45.2 % 32.0 (L) Potassium 3.5 - 5.1 mmol/L 4.0 MCV 81.5 - 97.5 fL 112.7 Chloride 98 - 107 mmol/L 111 (H) MCH 27.0 - 34.0 pg 36.6 CO2 22 - 32 mmol/L 23 MCHC 32.0 - 36.0 g/dL 32.5 Anion Gap 7 - 15 mmol/L 9 RDW 11.5 - 15.5 % 18.0 Glucose 70 - 120 mg/dL 144 (H) PLT 140 - 400 K/uL 84 (L) Calcium 8.4 - 10.2 mg/dL 9.2 MPV 6.6 - 11.1 fL -- Anisocytosis None Seen Slight ! Elliptocytes None Seen Few ! Macrocytosis None Seen Present ! Tear Drop Cells None Seen Few ! Hemoglobin A1C 4.0 - 5.6 % 7.4 (H) Estimated Average Glucose <126 mg/dL 166 (H) TSH 0.27 - 4.20 uIU/mL 0.04 (L) T4, Free 0.9 - 1.7 ng/dL 2.2 (H) Component Latest Ref [facility] 07/06/2022 1:37 PM WBC 4.00 - 10.80 K/uL 3.55 (L) Neutrophils % 40.0 - 75.0 % 58.6 Lymphocytes % 18.0 - 42.0 % 19.2 Monocytes % 1.0 - 11.0 % 10.7 Eosinophils % 0.0 - 6.0 % 10.7 (H) Basophils % 0.0 - 2.0 % 0.8 Absolute Neutrophils 1.80 - 7.70 K/uL 2.08 Absolute Lymphocytes 1.00 - 4.80 K/ul 0.68 (L) Absolute Monocytes 0.00 - 1.10 K/uL 0.38 Absolute Eosinophils 0.00 - 0.70 K/uL 0.38 Absolute Basophils 0.00 - 0.20 K/uL 0.03 BUN 6 - 20 mg/dL WBC 4.00 - 10.80 K/uL 3.55 (L) Creatinine 0.5 - 1.0 mg/dL RBC 3.85 - 5.15 M/uL 3.04 Estimated Glomerular Filtration Rate >=60 mL/min HGB 12.0 - 15.3 g/dL 11.3 (L) Sodium 135 - 146 mmol/L HCT 36.0 - 45.2 % 34.6 (L) Potassium 3.5 - 5.1 mmol/L MCV 81.5 - 97.5 fL 113.8 Chloride 98 - 107 mmol/L MCH 27.0 - 34.0 pg 37.2 CO2 22 - 32 mmol/L MCHC 32.0 - 36.0 g/dL 32.7 Anion Gap 7 - 15 mmol/L RDW 11.5 - 15.5 % 17.4 Glucose 70 - 120 mg/dL PLT 140 - 400 K/uL 77 (L) Calcium 8.4 - 10.2 mg/dL MPV 6.6 - 11.1 fL 12.4 Anisocytosis None Seen Slight ! Elliptocytes None Seen Macrocytosis None Seen Present ! Tear Drop Cells None Seen Hemoglobin A1C 4.0 - 5.6 % Estimated Average Glucose <126 mg/dL TSH 0.27 - 4.20 uIU/mL 0.70 T4, Free 0.9 - 1.7 ng/dL Component Latest Ref [facility] 07/27/2022 2:27 PM WBC 4.00 - 10.80 K/uL 3.75 (L) Neutrophils % 40.0 - 75.0 % 59.2 Lymphocytes % 18.0 - 42.0 % 20.3 Monocytes % 1.0 - 11.0 % 11.2 (H) Eosinophils % 0.0 - 6.0 % 8.5 (H) Basophils % 0.0 - 2.0 % 0.8 Absolute Neutrophils 1.80 - 7.70 K/uL 2.22 Absolute Lymphocytes 1.00 - 4.80 K/ul 0.76 (L) Absolute Monocytes 0.00 - 1.10 K/uL 0.42 Absolute Eosinophils 0.00 - 0.70 K/uL 0.32 Absolute Basophils 0.00 - 0.20 K/uL 0.03 BUN 6 - 20 mg/dL WBC 4.00 - 10.80 K/uL 3.75 (L) Creatinine 0.5 - 1.0 mg/dL RBC 3.85 - 5.15 M/uL 2.95 Estimated Glomerular Filtration Rate >=60 mL/min HGB 12.0 - 15.3 g/dL 11.0 (L) Sodium 135 - 146 mmol/L HCT 36.0 - 45.2 % 34.6 (L) Potassium 3.5 - 5.1 mmol/L MCV 81.5 - 97.5 fL 117.3 Chloride 98 - 107 mmol/L MCH 27.0 - 34.0 pg 37.3 CO2 22 - 32 mmol/L MCHC 32.0 - 36.0 g/dL 31.8 Anion Gap 7 - 15 mmol/L RDW 11.5 - 15.5 % 18.0 Glucose 70 - 120 mg/dL PLT 140 - 400 K/uL 77 (L) Calcium 8.4 - 10.2 mg/dL MPV 6.6 - 11.1 fL 13.2 Anisocytosis None Seen Slight ! Elliptocytes None Seen Few ! Macrocytosis None Seen Present ! Tear Drop Cells None Seen Few ! Hemoglobin A1C 4.0 - 5.6 % Estimated Average Glucose <126 mg/dL TSH 0.27 - 4.20 uIU/mL T4, Free 0.9 - 1.7 ng/dL (H) High (L) Low ! Abnormal Patient Active Problem List Diagnosis Code Spinal [...] Chronic pain syndrome G89.4 MEDICATION USE AGREEMENT [id number] Cirrhosis of liver (HCC) K74.60 THAD on [...] heart failure (HCC) I11.0 Pancytopenia (HCC) D61.818 Current Outpatient Medications Medication Sig Dispense Refill NovoLOG FlexPen 100 UNIT/ML Subcutaneous Solution Pen-injector 35 Units at breakfast, 39 Units before lunch, 45 Units before supper 120 mL 3 Lantus SoloStar 100 UNIT/ML Subcutaneous Solution Pen-injector Inject 50 Units under the skin every night at bedtime. 45 mL 3 nystatin (NYSTOP) 944755 UNIT/GM powder Apply topically to affected area 3 times a day. 60 g 1 Dexcom G6 History Professor Device Use as directed. To test blood sugars 4 times a day Dx E11.9 1 Each 0 Dexcom G6 Transmitter Use as directed. To test blood sugars 4 times a day. Change every 90 days. Dx E11.9 1 Each 3 OneTouch Verio In Vitro Strip (Glucose Blood) TESTING once daily 100 Strip 3 OneTouch Delica Plus [id number] TESTING once daily 100 Each 3 Nitroglycerin [...] BY MOUTH ONCE DAILY 68 Cap 0 metFORMIN HCl ER 500 MG Oral Tablet Extended Release 24 Hour (Glucophage XR) Take one tablet bymouth daily with a meal 90 Tab 3 Fluticasone Propionate 50 MCG/ACT Nasal Suspension (Flonase) USE 2 SPRAYS IN EACH NOSTRIL ONCE DAILY DIRECTED 16 g 5 Budesonide-Formoterol Fumarate 160-4.5 MCG/ACT Inhalation Aerosol (Symbicort) Inhale by mouth 2Puffs 2 times a day . 10.2 g 1 Dexcom G6 Sensor use as directed to test blood sugar 4 times daily. change sensor every 10 days3 Each 3 Disposable Brief X-Large Use as directed 60 Each 5 Mupirocin 2 % External Ointment (Bactroban) Apply to the right side of the nose twice daily 22 g 0 Potassium Chloride ER 10 MEQ Oral Tablet Extended Release Take by mouth 1 Tablet in the morning. With food.. 90 Tablet 3 Escitalopram Oxalate 20 MG Oral Tablet (Lexapro) TAKE 1 TABLET BY MOUTH DAILY 90 Tablet 3 Nadolol 40 MG Oral Tablet (Corgard) TAKE 1 TABLET BY MOUTH ONCE DAILY 90 Tablet 1 Lidocaine-Prilocaine 2.5-2.5 % External Cream (Emla) Apply topically to affected area as neededfor Other (when accessing port). APPLY TO SKIN OVER MEDIPORT & COVER 1HR PRIOR TO ACCESSING. 30g 0 Atorvastatin Calcium 80 MG Oral Tablet (Lipitor) TAKE 1 TABLET BY MOUTH AT BEDTIME 90 Tablet 1 Furosemide 20 MG Oral Tablet (Lasix) TAKE 1 TABLET BY MOUTH DAILY as needed for lower extremityswelling 90 Tablet 1 Isosorbide Mononitrate ER 30 MG Oral Tablet Extended Release 24 Hour (Imdur) TAKE 1 TABLET BY MOUTH DAILY 90 Tablet 1 Lactulose 10 GM/15ML Oral [...] 1 Gabapentin 300 MG Oral Capsule (Neurontin) take 1 capsule by mouth every morning, 1 capsule midday and 2 capsules in the evening. may take an extra dose in the morning and midday if needed for pain. max daily amount:6 capsules 360 Capsule 0 Spironolactone 25 MG Oral Tablet (Aldactone) Take [...] . Apply to wound 85 g 11 Current Facility-Administered Medications Medication Dose Route Frequency Provider Last Rate Last Admin Albuterol Sulfate (Proventil) (2.5 MG/3ML) 0.083% inhalation solution 2.5 mg 2.5 mg Nebulizer PRN Willaim Morales PA-C Albuterol Sulfate (Proventil) (5 MG/ML) 0.5% *conc* inhalation solution 2.5 mg 2.5 mg NebulizerPRShae Morales PA-C Review of patient's allergies indicates: Allergen Reactions Adhesive Tape Itching Pcn [Penicillins] Rash Perflutren Protein A Microsph Definity-lower back pain Past Medical History: Diagnosis Date Anemia Anxiety and depression Arthritis Cerebral palsy (HCC) 01/24/2012 Chronic constipation Chronic diastolic (congestive) heart failure ([facility]) 09/13/2021 Chronic hypoxemic respiratory failure ([facility]) 04/08/2019 Chronic pain 03/27/2012 Cirrhosis of liver ([facility]) 11/20/2017 DDD (degenerative disc disease), lumbar DM [...] less than 8.0% ([facility]) 09/26/2013 ICD-10 update of inactive term Venous insufficiency 01/09/2009 duplicate Past Surgical History: Procedure Laterality Date BONE DEBRIDEMENT, FIRST 20 CM2 Right 04/16/2020 DEBRIDEMENT SKIN SUBCUTANEOUS TISSUE MUSCLE AND BONE performed by Josh Vazquez MD at OR [facility] DELIVERY 04/20/1982 COLONOSCOPY 04/21/2009 repeat in 10 years COLONOSCOPY, DIAGNOSTIC (RECTUM) 10/04/2016 normal bx, repeat 10 yrs/[facility] COLONOSCOPY, DIAGNOSTIC (RECTUM) N/A 06/03/2020 internal hemorrhoids/biopsies show adenomatous polyps/recall 5 years/COLONOSCOPY FLEXIBLE PROXIMAL DIAGNOSTIC performed by Janis Hatch DO at OR [facility] COLONOSCOPY, DIAGNOSTIC (RECTUM) 03/17/2020 poor prep / [facility] DENTAL SURGERY PROCEDURE NEC wisdom teeth x 4 DILATION AND CURETTAGE (D&C) EGD, FLEXIBLE, DIAGNOSTIC 10/04/2016 gastritis/[facility] EGD, FLEXIBLE, DIAGNOSTIC 01/11/2018 eso varices, retained food, repeat 1 yr/[facility] EGD, FLEXIBLE, DIAGNOSTIC N/A 06/03/2020 severe erosive esophagitis/non-bleeding grade II esophageal varices/gastritis/biopsies show inflammatory changes/repeat 3-4 months/ESOPHAGOGASTRODUODENOSCOPY (EGD), FLEXIBLE, TRANSORAL, DIAGNOSTIC per formed by Janis Hatch DO at OR [facility] EGD, FLEXIBLE, DIAGNOSTIC 11/27/2019 eso varices, portal hypertensive gastropathy, gastritis / [facility] EGD, FLEXIBLE, DIAGNOSTIC N/A 08/05/2020 large amount of food in stomach/repeat 1.5 years/ESOPHAGOGASTRODUODENOSCOPY (EGD), FLEXIBLE, TRANSORAL, DIAGNOSTIC performed by Janis Hatch DO at OR [facility] EGD, FLEXIBLE, DIAGNOSTIC N/A 03/10/2021 ESOPHAGOGASTRODUODENOSCOPY (EGD), FLEXIBLE, TRANSORAL, DIAGNOSTIC performed by Kris Blankenship MD at ENDOSCOPY [facility] HYSTEROSCOPY W/BIOPSY AND/OR POLYPECTOMY W/WO D&C N/A 12/27/2021 HYSTEROSCOPY WITH BIOPSY AND/OR POLYPECTOMY WITH OR WITHOUT D&C performed by Concetta Khan MD at OR [facility] HYSTEROSCOPY W/BIOPSY AND/OR POLYPECTOMY W/WO D&C N/A 02/14/2022 HYSTEROSCOPY WITH BIOPSY AND/OR POLYPECTOMY WITH OR WITHOUT D&C performed by Concetta Khan MD at OR [facility] INSERT INTRAUTERINE DEVICE (IUD) N/A 02/14/2022 INSERTION OF INTRAUTERINE DEVICE performed by Concetta Khan MD at OR [facility] IR VENOUS ACCESS MEDIPORT 10/05/2020 PELVIS/HIP JOINT SURGERY NEC teenager aid in walking REMOVE CERVIX CONE W/LOOP ELECTRODE N/A 12/27/2021 LOOP ELECTROSURGERY EXCISION PROCEDURE performed by Concetta Khan MD at OR [facility] REPAIR/GRAFT ACHILLES TENDON age 40 aid in walking Objective: The patient is a 67 year old female BP 110/64 | Pulse 61 | Temp 35.6 C (96 F) (Infrared ) | SpO2 96% General: alert, well nourished, well developed, cooperative, obese and sitting in her motorized wheelchair Neck: supple, no adenopathy, no bruits, thyroid normal size, non-tender, without nodularity, no stridor, non-tender Heart: regular rate & rhythm, no murmur, no gallops, S-1 normal, S-2 normal and distant heart sounds, no ectopy Lungs: chest symmetric with normal AP diameter, no chest deformities noted, no chest wall tenderness, lungs clear to auscultation, coarse sounds heard, decreased breath sounds Abdomen: abdomen soft, non-tender, obese, normal bowel sounds and no masses or organomegaly Extremities: less than 2 second capillary refill, no joint deformities, effusion, or inflammation ASSESSMENT/PLAN: DME referral written, had dennise, consider booster in 3-4 months, flu shot today Refill of insulin Other cerebral palsy (HCC) (Primary) - DURABLE MEDICAL EQUIPMENT - INFLUENZA VACC, QUAD, HIGH DOSE (FLUZONE HD) Type 2 diabetes mellitus with hemoglobin A1c goal of less than 8.0% (HCC) - DURABLE MEDICAL EQUIPMENT - INFLUENZA VACC, QUAD, HIGH DOSE (FLUZONE HD) - NovoLOG FlexPen 100 UNIT/ML Subcutaneous Solution Pen-injector; 35 Units at breakfast, 39 Units before lunch, 45 Units before supper - Lantus SoloStar 100 UNIT/ML Subcutaneous Solution Pen-injector; Inject 50 Units under the skin every night at bedtime. 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 No Patient allergic to latex? No Has the patient ever fainted after receiving an injection? No VFC Stock: No Immunization(s) verified: Yes, Immunization Name: Flu, VIS Sheet(s) given: Yes Verified Side and Site: Yes Verified Shot(s) with Parent(s)/Patient: Yes * Tamara Fabian LPN - 07/28/2022 11:35 AM EST Chief Complaint Patient presents with Follow Up Needs an order to repair the arms on her chair documented in this encounter Plan of Treatment Upcoming Encounters Date Type Specialty Care Team Description 07/29/2022 Scheduled Telephone [facility], [address] [place] [address] 07/30/2022 Scheduled Telephone [facility], Nurse [address] [place] [address] 08/09/2022 Home Visit Family Medicine Kaylee Barakat, Community [facility] Outbound Sales Advisor [address] [place] [address] 08/12/2022 Office Visit Sleep Disorders Love Francisco DO [address] [place] [address] 08/17/2022 Hem/Onc Treatment Hematology Oncology [place], Chair 7 Hem Onc [facility] [address] [place] [address] 08/23/2022 Office Visit Endocrinology Alberta Duque PA-C [address] [place] [address] 08/25/2022 Home Visit [facility] July Poe RN [address] [place] [address] 08/30/2022 Office Visit Gastroenterology Lyssa Stout CRNP [address] [place] [address] 09/01/2022 Office Visit Gynecology Obstetrics Concetta Khan MD [address] [place] [address] 09/07/2022 Office Visit Pharmacy Pharmacist1, [facility] [address] [place] [address] 09/14/2022 PulmDiagnostic Pulmonary Function [place], Pft [address] [place] [address] 09/28/2022 Office Visit Pulmonary Reynaldo Marquez MD [address] [place] [address] 10/26/2022 Office Visit Hematology Oncology Tono Sanchez MD [address] [place] [address] Scheduled Procedures Name Priority Associated Diagnoses Date/Ti [...] this encounter Medical Devices Implanted Type Area Technical Planner Device Identifier Shelf Expiration Date Model / Serial / Lot Microtech Sure Clip Implanted:Qty: 2 on 06/03/2020 by Janis Hatch, DO at OR [facility] Clip N/A: Colon 04/21/2022 [facility]-F-[id number] 35-C-R / / [id number] documented as of this encounter Visit Diagnoses Diagnosis Other cerebral palsy (HCC)- Primary Type 2 diabetes mellitus with hemoglobin A1c goal of less than 8.0% (HCC) Chronic pain syndrome Obesity, morbid (more than 100 lbs over ideal weight or BMI > 40) (HCC) Morbid obesity Recurrent major depressive disorder, in partial remission (HCC) 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 No Code Status History Code Status Date Activated Date Inactivated Comments Full Code 12/27/2021 2:50 PM 12/27/2021 8:02 PM This order reflects the patients wishes and were consensually agreed upon. Question Answer Comments Discussion of Advance Directives occurred with: Not Discussed Does the patient have a Living Will? No Does the patient have Health Care Power of Pot Maker? No Full Code 03/31/2021 8:57 PM 04/03/2021 [...] Syed Bustos Spouse Emergency Contact Care Teams Cellophane Press Operator Relationship Specialty Start Date End Date Vanita Dunn MD [address], [place] [id number] PCP - General Family Medicine 03/16/21 documented as of this encounter"
--- OUTSIDE RECORDS SUMMARY | 2023-05-10 17:54 | External Medical Summary | Summary of Care ---
Author Name Unknown Organization [facility] [place] [address] Care Team Providers Care Converting Technician Name Role Phone Vanita Dunn MD Primary Care Provid er Reason for Visit * Reason Onset Date Comments [facility]: Maintenance 07/28/2022 Encounter Details Date Type Department Care Team Description 07/28/2022 Scheduled Telephone [facility], [facility] [address] [place] [address] Coordinator, [facility] [address] [facility] [place] [address] 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 documented as of this encounter (statuses as of 07/28/2022) Medications Medication Sig Dispensed Refills Start Date End Date Status nystatin (NYSTOP) 002820 UNIT/GM powder Apply topically to affected area 3 times a day. 60 g 1 10/16/2019 Active Dexcom G6 Controls Technician Device Use as directed. To test blood sugars 4 times a day Dx E11.9 1 Each 0 09/14/2020 Active Dexcom G6 Transmitter Use as directed. To test blood sugars 4 times a day. Change every 90 days. Dx E11.9 1 Each 3 09/14/2020 Active OneTouch Verio In Vitro Strip (Glucose Blood) TESTING once daily 100 Strip 3 10/29/2020 Active OneTouch Delica Plus [id number] TESTING once daily 100 Each 3 10/29/2020 [...] 01/16/2022 Active Nadolol 40 MG Oral Tablet (Corgard)Indications: HTN, goal below 140/90 TAKE 1 TABLET BY MOUTH ONCE DAILY 90 Tablet 1 01/18/2022 Active Lidocaine-Prilocaine 2.5-2.5 % External Cream (Emla)Indications:Enc [...] ONCE DAILY 30 Tablet 8 03/12/2022 Active NovoLOG FlexPen 100 UNIT/ML Subcutaneous Solution Pen-injectorIndicatio ns:Type 2 diabetes mellitus with hemoglobin A1c goal of less than 8.0% (HCC) 35 Units at breakfast, 39 Units before lunch, 45 Units before supper 120 mL 3 04/06/2022 Active Oxybutynin Chloride 5 MG Oral Tablet (Ditropan) TAKE 1 TABLET BY MOUTH TWICE DAILY 180 Tablet 1 04/10/2022 Active Lantus SoloStar 100 UNIT/ML Subcutaneous Solution Pen-injectorIndicatio ns:Type 2 diabetes mellitus with hemoglobin A1c goal of less than 8.0% (HCC) Inject under the skin 50 Units every night at bedtime . 45 mL 3 04/20/2022 Active Gabapentin 300 MG Oral Capsule (Neurontin)Indication [...] current situation. 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 -continue lexapro Impaired mobility [...] pain 01/24/2012 01/17/2017 Genetic Sleep Disorder Research Other*[id number] 05/13/2011 04/07/2016 Obstructive sleep apnea 01/18/2011 12/27/19 [...] Telephone Encounter - Silvia Squires LPN - 07/28/2022 9:56 AM EST COVID Follow up Type: [facility] Date of onset of COVID symptoms: 07/18 Date of positive COVID test: 07/18 COVID Targeted Medications: N/A Current concerns: Pt reports that she is feeling better Denies any fevers/SOB Continues with productive cough with yellow sputum but reports it is getting better Eating and drinking ok Denies any needs at this time Encouraged pt to call [facility] with any needs or concerns Monitoring Device: Device Type: Home Kit Device trigger/concerns with remote patient monitoring readings within past 24 hours: No Utilization within the past 24 hours: None Problems/Symptoms: Patients current temperature unknown Highest recorded temperature within the last 24 hours unknown Use of antipyretics? No Oxygen Requirements: Room Air Increased oxygen needs in past 24 hours: No Oxygen saturation per oximeter: n/a Pulse rate per oximeter: n/a Symptoms: Cough Cough description: Productive Color of Sputum: Yellow Consistency of Sputum: Thick (baseline) Anticoagulation: Has the patient been started on anticoagulation due to COVID-19? No Treatment/Plan: Encouraged pt to call [facility] with any concerns Anticoagulation: N/A Test Results: Positive Your test for COVID-19 came back as positive, which means you are infected with the novel coronavirus. Here is what you need to do immediately: You are considered infectious for 10 days after the start of your infection. That is the day your symptoms start, or if you have no symptoms, the day your test was positive. You should isolate in your home and wear a mask around others for at least the first five days. After five days, AND when You have had no fever for at least 24 hours without the use of medicine that reduces fevers AND Other symptoms have improved (for example, when your cough or shortness of breath have improved) You can leave your home if you can wear a mask at all times when in public. You should not go to the gym or eat at restaurants. After 10 days total, you can go about as usual. If you needed oxygen or were admitted to the hospital for COVID-19, the period of isolation should extend beyond 10 days, to at least 20 days from the start of your illness. Your health care providercan help you to determine if you fit into this group. If you live with others, isolate yourself to a single room away from them and avoid any contactduring the quarantine time. Wash your hands frequently and cover your cough. If you were in close contact with any family members, roommates or friends in the 2 weeks before your cold/flu symptoms started, notify them that you tested positive for COVID-19. Tell them that if they have cold/flu symptoms, they should call [employer] COVID-19 hotline at [phone] and get tested for the virus. Treat your symptoms with [id number] medications, such as Tylenol. If you develop new symptoms or your symptoms are worsening, call your [facility] Intake Team/PCP for advice. If you begin to experience a medical emergency, call 911 and advise them that you have tested positive for COVID-19 If you are a [employer] staff member or employee, when you receive your result, please call [employer] between 7 a.m. and 4 p.m. at [phone]. Notify them of your test results and for instructions on returning to work after your quarantine period. Your primary care provider will be notified of your results. Contact them for follow-up care. Has patient recovered (per current guidelines defining recovery)? Unable to Determine Is the patient an employee of [employer]? No. Follow Up: Patient encouraged to call with all urgent but not emergent issues. Scheduled to follow up with patient in N/A. documented in this encounter Plan of Treatment Upcoming Encounters Date Type Specialty Care Team Description 07/28/2022 Office Visit Family Medicine Joel Jordan MD [address] [place] [address] 07/29/2022 Scheduled Telephone [facility] Clinical Trials Systems Administrator, [facility] [address] [facility] [place] [address] 07/30/2022 Scheduled Telephone [facility], Nurse [facility] [place] [address] 08/09/2022 Home Visit Family Medicine Kaylee Barakat, Community Health Equipment Maintenance Superintendent [address] [place] [address] 08/12/2022 Office Visit Sleep Disorders Love Francisco DO [address] [facility] [place] [address] 08/17/2022 Hem/Onc Treatment Hematology Oncology [place], Chair [address] [place] [address] 08/23/2022 Office Visit Endocrinology Alberta Duque PA-C [address] [place] [address] 08/25/2022 Home Visit [facility] July Poe, UMA [address] [place] [address] 08/30/2022 Office Visit Gastroenterology Lyssa Stout CRNP [address] [facility] [place] [address] 09/01/2022 Office Visit Gynecology Obstetrics Concetta Khan MD [address] [place] [id number] 09/07/2022 Office Visit Pharmacy Pharmacist1, [facility] Sp [address] [place] [address] 09/14/2022 PulmDiagnostic Pulmonary Function West, Pft [address] [place] [address] 09/28/2022 Office Visit Pulmonary Reynaldo Marquez MD [address] [place] [facility] [place] [address] 10/26/2022 Office Visit Hematology Oncology Tnoo Sanchez MD [address] [facility] [place] [address] Scheduled Procedures Name Priority Associated Diagnoses Date/Ti [...] 04/05/2021, 0 11/06/2019, 01/09/2019, Additional history exists Influenza Vaccine (FLU shot) (#1) 2022 06/10/2021, 06/01/2020, 06/05/2019, Additional history exists Yearly B-12 09/15/2022 09/15/2021, [...] 05/26/2008 Hepatitis B Completed 09/24/2018, 04/11, 03/26/2018 GARDASIL-HPV IMMUNIZATION SERIES Aged Out No longer eligible based on patient's age to complete this topic MENINGOCOCCAL (MENACTRA/MENVEO) Aged Out No longer eligible based on patient's age to complete this topic documented as of this encounter Medical Devices Implanted Type Area Hydrochloric Area Supervisor Device Identifier Shelf Expiration Date Model / Serial / Lot Microtech Sure Clip Implanted:Qty: 2 on 06/03/2020 by Janis Hatch DO at OR [facility] Clip N/A: Colon 04/21/2022 [facility]-F-26-2 35-C-R / / [id number] documented as of this encounter Advance Directives Documents on File Type Date Recorded Patient Safety Belt Installer Expl anation Advance Directives and Living Will 04/29/2021 ADVANCE DIRECTIVE / LIVING WILL LIVING WILL AND HEALTH CARE POA Power of Tax Collector 04/29/2021 POWER OF A [facility] [...] patient have Health Care Power of Tax Collector? No Code Status History Code Status Date Activated Date Inactivated Comments Full Code 12/27/2021 2:50 PM 12/27/2021 8:02 PM This order reflects the patients wishes and were consensually agreed upon. Question Answer Comments Discussion of Advance Directives occurred with: Not Discussed Does the patient have a Living Will? No Does the patient have Health Care Power of Tax Collector? No Full Code 03/31/2021 8:57 PM 04/03/2021 [...] Syed Bustos Spouse Emergency Contact Care Teams Converting Technician Relationship Specialty Start Date End Date Vanita Dunn MD [address] [place] [address] PCP - General Family Medicine 03/16/21 documented as of this encounter
--- OUTSIDE RECORDS SUMMARY | 2023-05-10 17:54 | External Medical Summary | Summary of Care ---
Author Name Unknown Organization [facility] [place] [address] Care Team Providers Care Informaticist Name Role Phone Vanita Dunn MD Primary Care Provid er Reason for Visit * Reason Comments IV Therapy Venofer Encounter Details Date Type Department Care Team Description 07/27/2022 Hem/Onc Treatment Hematology/Oncology Treatment, [place] [address] [place] [phone] Iron deficiency anemia due to chronic blood loss*; Thrombocytopenia (HCC) 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 documented as of this encounter (statuses as of 07/27/2022) Medications Medication Sig Dispensed Refills Start Date End Date Status nystatin (NYSTOP) 686289 UNIT/GM powder Apply topically to affected area 3 times a day. 60 g 1 10/16/2019 Active Dexcom G6 Transit Planning Manager Device Use as directed. To [...] Strip 3 10/29/2020 Active OneTouch Delica Plus [id number] TESTING once daily 100 Each 3 10/29/2020 [...] than 7.0% ([place] [facility]) USE TO INJECT INSULIN FOUR TIMES [...] as of this encounter (statuses as of 07/27/2022) Active Problems Problem Noted Date Hypertensive heart [...] current situation. 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 -continue lexapro Impaired [...] as of this encounter (statuses as of 07/27/2022) Resolved Problems Problem Noted Date Resolved Date [...] pain 01/24/2012 01/17/2017 Genetic Sleep Disorder Research Other*[id number] 05/13/2011 04/07/2016 Obstructive sleep apnea 01/18/2011 12/27/19 [...] as of this encounter (statuses as of 07/27/2022) Immunizations Name Administration Dates Next Due COVID-19 [...] Sign Reading Time Taken Comments Blood Pressure 115/69 07/27/2022 1:45 PM EST Pulse 64 07/27/2022 1:45 PM EST Temperature 36.8 C (98.2 F) 07/27/2022 1:45 PM ES T Respiratory Rate 20 07/27/2022 1:45 PM EST Oxygen Saturation 93% 07/27/2022 1:45 PM EST Inhaled Oxygen Concentration - - [...] Nursing Notes * Renetta Schuler RN - 07/27/2022 4:10 PM EST Pt completed treatment without issues. [...] No coverage. * Renetta Schuler RN - 07/27/2022 4:07 PM EST Pt presents to clinic in own w/c, seated in bay 10 for treatment. Pt reports recently having covid,testing positive on 07/18/22. Pt states she has been asymptomatic for several days. Today is day 10 since testing positive; VS WNL. Reviewed Covid status with sample preparation supervisor; okay to proceed with treatment today. Reinforced use of mask during treatment; asked pt's spouse to wait in waiting room due to unknown Covid status/exposure. VAD accessed; specimen collected for ordered labs. Venofer infusing. Safety and Risk for Injury Patient will remain free from injury. Ensure appropriate safety devices are available. Provide and maintain safe environment. documented in this encounter Plan of Treatment Upcoming Encounters Date Type Specialty Care Team Description 07/28/2022 Scheduled Telephone [facility] Ui Ux Engineer, [facility] [address] [place] [address] 07/28/2022 Office Visit Family Medicine Joel Jordan MD [address] [place] [address] 07/29/2022 Scheduled Telephone [facility] Ui Ux Engineer, [facility] [address] [facility] [place] [address] 07/30/2022 Scheduled Telephone [facility] Region, Nurse [address] [place] [address] 08/09/2022 Home Visit Family Medicine Kaylee Barakat, Community Health Manager Process Improvement [address] [place] [address] 08/12/2022 Office Visit Sleep Disorders Love Francisco DO [address] [facility] [place] [address] 08/17/2022 Hem/Onc Treatment Hematology Oncology [place], Chair 7 Hem Onc Scenery [address] [facility] [address] 08/23/2022 Office Visit Endocrinology Alberta Duque PA-C [address] [place], [place] [phone] 08/25/2022 Home Visit [facility] July Poe, RN [address] [place] [address] 08/30/2022 Office Visit Gastroenterology Lyssa Stout CRNP [address] [facility] [address] 09/01/2022 Office Visit Gynecology Obstetrics Concetta Khan MD [address] [place] [address] 09/07/2022 Office Visit Pharmacy Pharmacist1, [facility] Sp [address] [place] [address] 09/14/2022 PulmDiagnostic Pulmonary Function West, Pft [address] [place] [address] 09/28/2022 Office Visit Pulmonary Reynaldo aMrquez MD [address] [facility] [place] [address] 10/26/2022 Office Visit Hematology Oncology Tono Sanchez MD [address] [place] [address] Scheduled Procedures Name Priority Associated Diagnoses Date/Ti [...] this encounter Medical Devices Implanted Type Area Weigher Operator Device Identifier Shelf Expiration Date Model / Serial / Lot Microtech Sure Clip Implanted:Qty: 2 on 06/03/2020 by Janis Hatch DO at OR [facility] Clip N/A: Colon 04/21/2022 [facility]-F-26-2 35-C-R / / [id number] documented as of this encounter Procedures Procedure Name Priority Date/Time Associated Diagnosis Comments DIFFERENTIAL, AUTOMATED STAT 07/27/2022 2:27 PM EST Thrombocytopenia (HCC) CBC WITH WBC DIFFERENTIAL STAT 07/27/2022 2:27 PM EST Thrombocytopenia (HCC) CBC STAT 07/27/2022 2:27 PM EST Thrombocytopenia (HCC) DIFFERENTIAL, TECHNOLOGIST REVIEW Routine 07/27/2022 2:27 PM EST Thrombocytopenia (HCC) documented in this encounter Results * (ABNORMAL) DIFFERENTIAL, TECHNOLOGIST REVIEW (07/27/2022 2:27 PM EST) nRs 07/27/2022 3:20 PM EST [facility] 56-02 Anisocytosis Slight(A) None Seen 07/27/2022 3:20 PM EST [facility] 56-02 Elliptocytes Few(A) None Seen 07/27/2022 3:20 PM EST [facility] 56-02 Macrocytosis Present(A ) None Seen 07/27/2022 3:20 PM EST [facility] 56-02 Tear Drop Cells Few(A) None Seen 3:20 PM EST [facility] 56-02 Blood Venous blood specimen / Unknown Venipuncture / Unknown 07/27/2022 2:27 PM EST 07/27/2022 2:27 PM EST Tono Sanchez MD LAB BLOOD ORDERABLES [facility] [address]- [address] [place] [address] * (ABNORMAL) DIFFERENTIAL, AUTOMATED (07/27/2022 2:27 PM EST) WBC 3.75(L) 4.00 - 10.80 K/uL 07/27/2022 3:20 PM EST [facility] 56-02 Neutrophils % 59.2 40.0 - 75.0 % 07/27/2022 3:20 PM EST [facility] 56-02 Lymphocytes % 20.3 18.0 - 42.0 % 07/27/2022 3:20 PM EST [facility] 56-02 Monocytes % 11.2(H) 1.0 - 11.0 % 07/27/2022 3:20 PM EST [facility] 56-02 Eosinophils % 8.5(H) 0.0 - 6.0 % 07/27/2022 3:20 PM EST [facility] 56-02 Basophils % 0.8 0.0 - 2.0 % 07/27/2022 3:20 PM EST [facility] 56-02 Absolute Neutrophils 2.22 1.80 - 7.70 K/uL 07/27/2022 3:20 PM EST [facility] 56-02 Absolute Lymphocytes 0.76(L) 1.00 - 4.80 K/ul 07/27/2022 3:20 PM EST [facility] 56-02 Absolute Monocytes 0.42 0.00 - 1.10 K/uL 07/27/2022 3:20 PM EST [facility] 56-02 Absolute Eosinophils 0.32 0.00 - 0.70 K/uL 07/27/2022 3:20 PM EST [facility] 56-02 Absolute Basophils 0.03 0.00 - 0.20 K/uL 07/27/2022 3:20 PM EST [facility] 56-02 Blood Venous blood specimen / Unknown Venipuncture / Unknown 07/27/2022 2:27 PM EST 07/27/2022 2:27 PM EST Tono Sanchez MD LAB BLOOD ORDERABLES [facility] [address]- [address] [place] [address] * (ABNORMAL) CBC (07/27/2022 2:27 PM EST) WBC 3.75(L) 4.00 - 10.80 K/uL 07/27/2022 3:20 PM EST [facility] 56- RBC 2.95 3.85 - 5.15 M/uL 07/27/2022 3:20 PM EST [facility] 56 HGB 11.0(L) 12.0 - 15.3 g/dL 07/27/2022 3:20 PM EST [facility] 56 HCT 34.6(L) 36.0 - 45.2 % 07/27/2022 3:20 PM EST [facility] 56 MCV 117.3 81.5 - 97.5 fL 07/27/2022 3:20 PM EST [facility] 56 MCH 37.3 27.0 - 34.0 pg 07/27/2022 3:20 PM EST [facility] 56 MCHC 31.8 32.0 - 36.0 g/dL 07/27/2022 3:20 PM EST [facility] 56 RDW 18.0 11.5 - 15.5 % 07/27/2022 3:20 PM EST [facility] 56 PLT 77(L) 140 - 400 K/uL 07/27/2022 3:20 PM [facility] 56 Comment: Consistent with previous results. MPV 13.2 6.6 - 11.1 fL 07/27/2022 3:20 PM [facility] 56- Blood Venous blood specimen / Unknown Venipuncture / Unknown 07/27/2022 2:27 PM EST 07/27/2022 2:27 PM EST Tono Sanchez MD LAB BLOOD ORDERABLES [facility] 56 [address] [place] [address] documented in this encounter Visit [...] ONCE PRN Other, Hypersensitivity Reaction, Starting on Mon07/27/22 at 1412, Until Mon07/28/22 at 1411, For 24 hours EPINEPHrine 1 MG/ML inj 0.3 mg 0.3 mg, Intramuscular, ONCE PRN Other, Hypersensitivity Reaction or Anaphylaxis, Starting on Mon07/27/22 at 1412, Until [place] 07/28/22 at 1411, For 24 hours hEParin 100 UNIT/ML Lock Flush inj 500 Units 500 Units (5 mL), IV Lock, PRN Other, IV Flush, Starting on Mon07/27/22 at 1412, Until Mon07/28/22 at 1411, For 24 hours, Do not flush if lock, PICC, or central line not in place; IV infusing or unable to flush. Given 07/27/2022 3:48 PM EST 500 Units Hydrocortisone Sod Suc (PF) (Solu-Cortef) inj 100 mg 100 mg, IV Push, ONCE PRN Other, Hypersensitivity Reaction, Starting on Mon07/27/22 at 1412, Until [place] 07/28/22 at 1411, For 24 hours NSS infusion 500 mL, Intravenous, at 50 mL/hr, CONTINUOUS, Starting on Mon07/27/22 at 1515, Until Mon07/28/22 at 0114 Start Infusion 07/27/2022 2:13 PM EST 500 mL 50 mL/hr sodium chloride 0.9 % flush/inj 10 mL 10 mL, IV Push, PRN Other, IV Flush, Starting on Mon07/27/22 at 1412, Until Mon07/28/22 at 1411, For 24 hours, Do not flush if lock, PICC, or central line not in place; IV infusing or unable to flush. Given 07/27/2022 3:48 PM EST 10 mL Inactive Administered Medications - up to 3 most recent administrations Medication Order MAR Action Action Date Dose Rate Site Iron Sucrose (Venofer) 300 mg in NSS 250 mL ivpb 300 mg, IV Piggyback, ONCE, 1 dose, On Mon07/27/22 at 1545, Administer over 90 Minutes Start Infusion 07/27/2022 2:13 PM EST 300 mg 167 mL/hr documented in this encounter Advance Directives Documents on File Type Date Recorded Patient Respiratory Medicine Physician Expl anation Advance Directives and Living Will 04/29/2021 ADVANCE DIRECTIVE / LIVING WILL LIVING WILL AND HEALTH CARE POA Power of Batch Operator 04/29/2021 POWER OF A [facility]NEY HEALTH [...] the patient have Health Care Power of Batch Operator? No Code Status History Code Status Date Activated Date Inactivated Comments Full Code 12/27/2021 2:50 PM 12/27/2021 8:02 PM This order reflects the patients wishes and were consensually agreed upon. Question Answer Comments Discussion of Advance Directives occurred with: Not Discussed Does the patient have a Living Will? No Does the patient have Health Care Power of Batch Operator? No Full Code 03/31/2021 8:57 PM [...] Syed Bustos Spouse Emergency Contact Care Teams Informaticist Relationship Specialty Start Date End Date Vanita Dunn MD [address] [place] [address] PCP - General Family Medicine 03/16/21 documented as of this encounter
--- OUTSIDE RECORDS SUMMARY | 2023-05-10 17:54 | External Medical Summary | Summary of Care ---
Author Name Unknown Organization [facility] Address [place] [address] Care Team Providers Care Powder Blender And Pourer Name Role Phone Vanita Dunn MD Primary Care Provid er Reason for Visit * Reason Comments IV Therapy Venofer Encounter Details Date Type Department Care Team Description 07/27/2022 Hem/Onc Treatment Hematology/Oncology Treatment, [place] [address] [place] [id number] Iron deficiency anemia due to chronic blood loss*; Thrombocytopenia (HCC) 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 documented as of this encounter (statuses as of 07/27/2022) Medications Medication Sig Dispensed Refills Start Date End Date Status nystatin (NYSTOP) 404768 UNIT/GM powder Apply topically to affected area 3 times a day. 60 g 1 10/16/2019 Active Dexcom G6 Automobile Damage Appraiser Device Use as directed. To test blood sugars 4 times a day Dx E11.9 1 Each 0 09/14/2020 Active Dexcom G6 Transmitter Use as directed. To test blood sugars 4 times a day. Change every 90 days. Dx E11.9 1 Each 3 09/14/2020 Active OneTouch Verio In Vitro Strip (Glucose Blood) TESTING once daily 100 Strip 3 10/29/2020 Active OneTouch Delica Plus [id number] TESTING once daily 100 Each 3 10/29/2020 [...] hemoglobin A1c goal of less than 7.0% ([facility]) USE TO INJECT INSULIN FOUR TIMES [...] pain 01/24/2012 01/17/2017 Genetic Sleep Disorder Research Other*[id number] 05/13/2011 04/07/2016 Obstructive sleep apnea 01/18/2011 12/27/19 [...] positive; VS WNL. Reviewed Covid status with supervisor offset plate preparation; okay to proceed with treatment today. Reinforced [...] Team Description 07/28/2022 Scheduled Telephone [facility] Brand Sales Consultant, [facility] [address] [facility] [place] [address] 07/28/2022 Office Visit Family Medicine Joel Jordan MD [address] [place] [address] 07/29/2022 Scheduled Telephone [facility] Brand Sales Consultant, [facility] [address] [facility] [place] [address] 07/30/2022 Scheduled Telephone [facility] Region, Nurse [address] [place] [address] 08/09/2022 Home Visit Family Medicine Kaylee Barakat, Community Health Culinary Artist [address] [place] [address] 08/12/2022 Office Visit Sleep Disorders Love Francisco DO [address] [facility] [place] [address] 08/17/2022 Hem/Onc Treatment Hematology Oncology Park, Chair 7 Hem Onc Scenery [address] [facility] [address] 08/23/2022 Office Visit Endocrinology Alberta Duque PA-C [address] [place], [place] [id number] 08/25/2022 [facility] Visit [facility] July Poe, RN [address] [place] [address] 08/30/2022 Office Visit Gastroenterology Lyssa Stout CRNP [address] [facility] [address] 09/01/2022 Office Visit Gynecology Obstetrics Concetta Khan MD [address] [place] [address] 09/07/2022 Office Visit Pharmacy Pharmacist1, [facility] Sp [address] [place] [address] 09/14/2022 PulmDiagnostic Pulmonary Function West, Pft [address] [facility] [place] [address] 09/28/2022 Office Visit Pulmonary Reynaldo Marquez MD [address] [place] [facility] [place] [address] 10/26/2022 Office Visit Hematology Oncology Tono Sanchez MD [address] [place] [address] Scheduled Procedures Name Priority Associated Diagnoses Date/Ti [...] this encounter Medical Devices Implanted Type Area Banking Services Advisor Device Identifier Shelf Expiration Date Model / Serial / Lot Microtech Sure Clip Implanted:Qty: 2 on 06/03/2020 by Janis Hatch DO at OR [facility] Clip N/A: Colon 04/21/2022 [facility]-F-26-2 35-C-R / / [id number] documented as of this encounter Procedures Procedure [...] PM EST) nRs 07/27/2022 3:20 PM EST [facility] 56-02 Anisocytosis Slight(A) None Seen 07/27/2022 3:20 PM EST [facility]-02 Elliptocytes Few(A) None Seen 07/27/2022 3:20 PM EST [facility] 56-02 Macrocytosis Present(A ) None Seen 07/27/2022 3:20 PM EST [facility] 56-02 Tear Drop Cells Few(A) None Seen 3:20 PM EST [facility] 56-02 Blood Venous blood specimen / Unknown Venipuncture / Unknown 07/27/2022 2:27 PM EST 07/27/2022 2:27 PM EST Tono Sanchez MD LAB BLOOD ORDERABLES [facility]- [address] [place] [address] * (ABNORMAL) DIFFERENTIAL, AUTOMATED (07/27/2022 2:27 PM EST) WBC 3.75(L) 4.00 - 10.80 K/uL 07/27/2022 3:20 PM EST [facility] 56-02 Neutrophils % 59.2 40.0 - 75.0 % 07/27/2022 3:20 PM EST [facility] 56-02 Lymphocytes % 20.3 18.0 - 42.0 % 07/27/2022 3:20 PM EST [facility]-02 Monocytes % 11.2(H) 1.0 - 11.0 % 07/27/2022 3:20 PM EST [facility] 56-02 Eosinophils % 8.5(H) 0.0 - 6.0 % 07/27/2022 3:20 PM EST [facility] 56-02 Basophils % 0.8 0.0 - 2.0 % 07/27/2022 3:20 PM EST [facility] 56-02 Absolute Neutrophils 2.22 1.80 - 7.70 K/uL 07/27/2022 3:20 PM EST [facility] 56-02 Absolute Lymphocytes 0.76(L) 1.00 - 4.80 K/ul 07/27/2022 3:20 PM EST [facility] 56-02 Absolute Monocytes 0.42 0.00 - 1.10 K/uL 07/27/2022 3:20 PM EST [facility] 56-02 Absolute Eosinophils 0.32 0.00 - 0.70 K/uL 07/27/2022 3:20 PM EST [facility] 56-02 Absolute Basophils 0.03 0.00 - 0.20 K/uL 07/27/2022 3:20 PM EST [facility] 56-02 Blood Venous blood specimen / Unknown Venipuncture / Unknown 07/27/2022 2:27 PM EST 07/27/2022 2:27 PM EST Tono Sanchez MD LAB BLOOD ORDERABLES [facility] [address]- [address] [place] [address] * (ABNORMAL) CBC (07/27/2022 2:27 PM EST) WBC 3.75(L) 4.00 - 10.80 K/uL 07/27/2022 3:20 PM EST [facility] 56- RBC 2.95 3.85 - 5.15 M/uL 07/27/2022 3:20 PM EST [facility] 56 HGB 11.0(L) 12.0 - 15.3 g/dL 07/27/2022 3:20 PM EST [facility] 56 HCT 34.6(L) 36.0 - 45.2 % 07/27/2022 3:20 PM EST [facility] 56 MCV 117.3 81.5 - 97.5 fL 07/27/2022 3:20 PM EST [facility] 56 MCH 37.3 27.0 - 34.0 pg 07/27/2022 3:20 PM EST [facility] 56 MCHC 31.8 32.0 - 36.0 g/dL 07/27/2022 3:20 PM EST [facility] 56 RDW 18.0 11.5 - 15.5 % 07/27/2022 3:20 PM EST [facility] 56 PLT 77(L) 140 - 400 K/uL 07/27/2022 3:20 PM [facility] 56 Comment: Consistent with previous results. MPV 13.2 6.6 - 11.1 fL 07/27/2022 3:20 PM [facility] 56- Blood Venous blood specimen / Unknown Venipuncture / Unknown 07/27/2022 2:27 PM EST 07/27/2022 2:27 PM EST Tono Sanchez MD LAB BLOOD ORDERABLES [facility] 56 [address] [place] [address] documented in this encounter Visit [...] Documents on File Type Date Recorded Patient Realty Specialist Expl anation Advance Directives and Living Will 04/29/2021 ADVANCE DIRECTIVE / LIVING WILL LIVING WILL AND HEALTH CARE POA Power of Retail Salesman 04/29/2021 POWER OF A [facility] [...] the patient have Health Care Power of Retail Salesman? No Code Status History Code Status Date Activated Date Inactivated Comments Full Code 12/27/2021 2:50 PM 12/27/2021 8:02 PM This order reflects the patients wishes and were consensually agreed upon. Question Answer Comments Discussion of Advance Directives occurred with: Not Discussed Does the patient have a Living Will? No Does the patient have Health Care Power of Retail Salesman? No Full Code 03/31/2021 8:57 PM 04/03/2021 [...] Syed Bustos Spouse Emergency Contact Care Teams Powder Blender And Pourer Relationship Specialty Start Date End Date Vanita Dunn MD [address] [place] [address] PCP - General Family Medicine 03/16/21 documented as of this encounter
--- OUTSIDE RECORDS SUMMARY | 2023-05-10 17:55 | External Medical Summary | Summary of Care ---
Author Name Unknown Organization [facility] Address [place] [address] Care Team Providers Care Scientific Advisor Name Role Phone Vanita Dunn MD Primary Care Provid er Reason for Visit * Reason Onset Date Comments [facility]: Maintenance 07/27/2022 Encounter Details Date Type Department Care Team Description 07/27/2022 Scheduled Telephone [facility], [facility] [address] [place] [address] Coordinator, [facility] 132 [facility] [place] [address] 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 documented as of this encounter (statuses as of 07/27/2022) Medications Medication Sig Dispensed Refills Start Date End Date Status nystatin (NYSTOP) 334030 UNIT/GM powder Apply topically to affected area 3 times a day. 60 g 1 10/16/2019 Active Dexcom G6 Pediatric Dentist Device Use as directed. To test blood sugars 4 times a day Dx E11.9 1 Each 0 09/14/2020 Active Dexcom G6 Transmitter Use as directed. To test blood sugars 4 times a day. Change every 90 days. Dx E11.9 1 Each 3 09/14/2020 Active OneTouch Verio In Vitro Strip (Glucose Blood) TESTING once daily 100 Strip 3 10/29/2020 Active OneTouch Delica Plus [id number] TESTING once daily 100 Each 3 10/29/2020 [...] 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 if a exterminator helper plan is made -continue lexapro Impaired mobility [...] pain 01/24/2012 01/17/2017 Genetic Sleep Disorder Research Other*[id number] 05/13/2011 04/07/2016 Obstructive sleep apnea 01/18/2011 12/27/19 [...] Telephone Encounter - Lakeshia Flores RN - 07/27/2022 1:33 PM EST COVID Follow up Type: [facility] Date of onset of COVID symptoms: 07/18/22 Date of positive COVID test: 07/18/22 COVID Targeted Medications: N/A Current concerns: Phone call to patient for daily COVID call, patient answered and was at Hem/onc getting an iron transfusion, would like phone call tomorrow ARASH Rodriguez Janitorial Supervisor [facility] documented in this encounter Plan of Treatment Upcoming Encounters Date Type Specialty Care Team Description 07/28/2022 Scheduled Telephone [facility] Funeral Service Apprentice, [facility] [place] [address] 07/28/2022 Office Visit Family Medicine Joel Jordan MD [address] [place] [address] 07/29/2022 Scheduled Telephone [facility] Funeral Service Apprentice, [facility] [place] [address] 07/30/2022 Scheduled Telephone [facility], Nurse Brady Chavez [address] [facility] [place] [address] 08/09/2022 Home Visit Family Medicine Kaylee Barakat, Community Health Real Estate Professional [address] [place] [address] 08/12/2022 Office Visit Sleep Disorders Love Francisco DO [address] [facility] [place] [address] 08/23/2022 Office Visit Endocrinology Alberta Duque PA-C [address] [place] [address] 08/25/2022 Home Visit [facility] July Poe RN [address] [facility] [place] [address] 08/30/2022 Office Visit Gastroenterology Lyssa Stout CRNP [address] [facility] [place] [address] 09/01/2022 Office Visit Gynecology Obstetrics Concetta Khan MD [address] [place] [address] [place] [address] 09/14/2022 PulmDiagnostic Pulmonary Function Scott, Pft [address] [facility] [place] [address] 09/28/2022 Office Visit Pulmonary Reynaldo Marquez MD [address] [place] [id number] 10/26/2022 Office Visit Hematology Oncology Tono Sanchez MD 200 [place] [address] Scheduled Procedures Name Priority Associated Diagnoses Date/Ti [...] this encounter Medical Devices Implanted Type Area Bulb Tester Device Identifier Shelf Expiration Date Model / Serial / Lot Microtech Sure Clip Implanted:Qty: 2 on 06/03/2020 by Janis Hatch, DO at OR [facility] Clip N/A: Colon 04/21/2022 [facility]-F-26-2 35-C-R / / [id number] documented as of this encounter Advance Directives Documents on File Type Date Recorded Patient Extension Supervisor Expl anation Advance Directives and Living Will 04/29/2021 ADVANCE DIRECTIVE / LIVING WILL LIVING WILL AND HEALTH CARE POA Power of Hvac Service Manager 04/29/2021 POWER OF A [facility] [...] patient have Health Care Power of Hvac Service Manager? No Code Status History Code Status Date Activated Date Inactivated Comments Full Code 12/27/2021 2:50 PM 12/27/2021 8:02 PM This order reflects the patients wishes and were consensually agreed upon. Question Answer Comments Discussion of Advance Directives occurred with: Not Discussed Does the patient have a Living Will? No Does the patient have Health Care Power of Hvac Service Manager? No Full Code 03/31/2021 8:57 PM [...] Syed Bustos Spouse Emergency Contact Care Teams Scientific Advisor Relationship Specialty Start Date End Date Vanita Dunn MD [address] [place] [address] PCP - General Family Medicine 03/16/21 documented as of this encounter
--- OUTSIDE RECORDS SUMMARY | 2023-05-10 17:55 | External Medical Summary | Summary of Care ---
Author Name Unknown Organization [place] [address] Care Team Providers Care Boarder Hand Name Role Phone Vanita Dunn MD Primary Care Provid er Reason for Visit * Reason Comments Diabetes Follow-Up Dosage Adjustment In Person (Anticoag Cl inic) Encounter Details Date Type Department Care Team Description 07/27/2022 Office Visit Pharmacy, Jes[facility]s Bojorquez [place] 200 [facility] [place] [address] Pharmacist1, [facility] 200 [facility] [place] [id number] Type 2 diabetes mellitus with hemoglobin A1c goal of less than 8.0% ([facility])* 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 documented as of this encounter (statuses as of 07/27/2022) Medications Medication Sig Dispensed Refills Start Date End Date Status nystatin (NYSTOP) 324217 UNIT/GM powder Apply topically to affected area 3 times a day. 60 g 1 10/16/2019 Active Dexcom G6 Certified Medical Biller Device Use as directed. To test blood sugars 4 times a day Dx E11.9 1 Each 0 09/14/2020 Active Dexcom G6 Transmitter Use as directed. To test blood sugars 4 times a day. Change every 90 days. Dx E11.9 1 Each 3 09/14/2020 Active OneTouch Verio In Vitro Strip (Glucose Blood) TESTING once daily 100 Strip 3 10/29/2020 Active OneTouch Delica Plus [id number] TESTING once daily 100 Each 3 10/29/2020 [...] 03/27/2012 09/13/2021 Urinary tract infection 01/27/2012 04/03/20 Sleep disturbance 01/24/2012 07/02/2014 Malaise and fatigue 01/24/2012 06/07/2016 Myalgia and myositis 01/24/2012 06/07/2016 Urinary frequency 01/24/2012 07/02/2014 Urgency of urination 01/24/2012 06/07/2016 Kidney disease, chronic, stage III (GFR 30-59 ml /min) 01/24/2012 03/27/2012 Chronic pain 01/24/2012 01/17/2017 Genetic Sleep Disorder Research Other*[id number] 05/13/2011 04/07/2016 Obstructive sleep apnea 01/18/2011 12/27/19 [...] Progress Notes * Jonas Atwood V, [facility] - 07/27/2022 1:38 PM EST Images from the original note were not included. Medication Therapy Disease Management [facility] - Diabetes Management Progress Note Shaina Bustos, identified by name and date of , is a 67 year old female being seen for diabetesmanagement/education. Patient presents for return diabetic visit. DIABETES: Current diabetic medications: Novolog, Inject 35 units before breakfast, 39units before lunch, [id number] before supper INCREASE:Lantus pen,50 units daily Metformin ER 500mg daily Trulicity 4.5mg SQ weekly Medication Injection Site: Abdomen Lifestyle: Diet: unchanged History of Treatment Barriers: Lifestyle: wheelchair bound Therapy considerations: None Medication: Metformin IR:GM? Glucose Review/SMBG: Readings obtained from patient device Hypoglycemia: Does your blood sugar go below 70 mg/dL? Yes, 2 times per Dexcom. Hyperglycemia symptoms present: none Recent Labs Units 05/19/22 1449 01/24/22 0834 08/19/21 1619 HEMOGLOBIN A1C - [facility] % 7.4* 6.9* 7.1* Recent Labs Units 05/19/22 1449 12/20/21 1448 12/18/21 0000 ESTIMATED GLOMERULAR FILTRATION RATE - [facility] mL/min 83 >90 -- EGFR-OUTSIDE LAB -- -- 87.3 CREATININE - [facility] mg/dL 0.8 0.7 -- CREATININE-OUTSIDE LAB MG/DL -- -- 0.72 Lab Results Component Value Date/Time CREATININE - [facility] 0.8 05/19/2022 02:49 PM CREATININE - [facility] 0.7 12/20/2021 02:48 PM CREATININE - [facility] 0.8 09/23/2021 05:24 PM CREATININE - [facility] 0.6 09/24/2020 05:16 [...] goal BP Readings from Last 3 Encounters: 07/21/22 108/60 07/06/22 102/72 07/05/22 105/58 Blood pressure at goal: yes HYPERLIPIDEMIA: Patient [...] for Moderna series) 03/02/2022 DIABETES-FOOT EXAM 04/05/2022 Influenza Vaccine (FLU shot) (1) 05/12/2022 ASSESSMENT & PLAN: ICD-10-CM 1. Type 2 diabetes mellitus with hemoglobin A1c goal of less than 8.0% (HCC) E11.9 BG Readings - Blood sugars uncontrolled. High all day long and higher after dinner Medications - Reviewed current regimen, patient is adherent to regimen. Diet, Exercise, Lifestyle - No significant lifestyle changes since last visit. Discussed with patient today. Patient is agreeable to wear Dexcom CGM. Patient aware to contact clinic if any hypoglycemia before next visit. MEDICATION CHANGES: yes, see below; preferred pharmacy: [facility] Diabetic Medications: INCREASE: Novolog, Inject 35 units before breakfast, 39units before lunch, [id number] before supper INCREASE:Lantus pen,56 units daily Metformin ER 500mg daily Trulicity 4.5mg SQ weekly HEALTH MAINTENANCE INTERVENTIONS: Labs: Up to Date Immunizations: needs flu and pneumococcal - getting chemo q3 weeks Foot Exam: Complete with next PCP visit on 07/28 Eye Exam: Complete with next PCP visit on 07/28 Annual Wellness Visit: Up to Date FOLLOW UP: Return to clinic in 6 weeks 09/07/2022 Jonas Atwood RPh, CDE Clinical Pharmacist - Sr. Manager Medication Therapy Management [facility] 07/27/2022, 1:52 PM documented in this encounter Plan of Treatment Upcoming Encounters Date Type Specialty Care Team Description 07/28/2022 Scheduled Telephone [facility] Software Development Analyst, [address] [place] [address] 07/28/2022 Office Visit Family Medicine Joel Jordan MD [address] [place] [address] 07/29/2022 Scheduled Telephone [facility] Software Development Analyst, [address] [place] [address] 07/30/2022 Scheduled Telephone [facility], Nurse [address] [place] [address] 08/09/2022 Home Visit Family Medicine Kaylee Barakat, Community Health Health Information Manager [address] [place] [address] 08/12/2022 Office Visit Sleep Disorders Love Francisco, 132 [place] [address] 08/23/2022 Office Visit Endocrinology Alberta Duque PA-C [address] [place] [address] 08/25/2022 Home Visit [facility] July Poe RN [address] [place] [address] 08/30/2022 Office Visit Gastroenterology Lyssa Stout CRNP [address] [place] [address] 09/01/2022 Office Visit Gynecology Obstetrics Concetta Khan MD [address] [place] [address] 09/07/2022 Office Visit Pharmacy Pharmacist1, [facility] 200 [place] [address] 09/14/2022 PulmDiagnostic Pulmonary Function West, Pft [address] [place] [address] 09/28/2022 Office Visit Pulmonary Reynaldo Marquez MD [address] [facility] [place] [phone] 10/26/2022 Office Visit Hematology Oncology Tono Sanchez MD 200 [place] [address] Scheduled Procedures Name Priority Associated Diagnoses Date/Ti [...] this encounter Medical Devices Implanted Type Area Mental Health Social Worker Device Identifier Shelf Expiration Date Model / Serial / Lot Microtech Sure Clip Implanted:Qty: 2 on 06/03/2020 by Janis Hatch, DO at OR [facility] Clip N/A: Colon 04/21/2022 [facility]-F-26-2 35-C-R / / [id number] documented as of this encounter Visit Diagnoses Diagnosis Type 2 diabetes mellitus with hemoglobin A1c goal of less than 8.0% (HCC)- Primary documented in this encounter Advance Directives Documents on File Type Date Recorded Patient Outside Salesman Expl anation Advance Directives and Living Will 04/29/2021 ADVANCE DIRECTIVE / LIVING WILL LIVING WILL AND HEALTH CARE POA Power of Keymodule Assembly Machine Tender 04/29/2021 POWER OF A TTORNEY [...] the patient have Health Care Power of Keymodule Assembly Machine Tender? No Code Status History Code Status Date Activated Date Inactivated Comments Full Code 12/27/2021 2:50 PM 12/27/2021 8:02 PM This order reflects the patients wishes and were consensually agreed upon. Question Answer Comments Discussion of Advance Directives occurred with: Not Discussed Does the patient have a Living Will? No Does the patient have Health Care Power of Keymodule Assembly Machine Tender? No Full Code 03/31/2021 8:57 [...] on File Name Relationship Healthcare Agent [facility] Communication Syed Bustos Spouse Emergency Contact Care Teams Boarder Hand Relationship Specialty Start Date End Date Vanita Dunn MD [address] [place] [address] PCP - General Family Medicine 03/16/21 documented as of this encounter
--- OUTSIDE RECORDS SUMMARY | 2023-05-10 17:55 | External Medical Summary | Summary of Care ---
Author Name Unknown Organization [facility] Address [place] [address] Care Team Providers Care Rib Chopper Name Role Phone Vanita Dunn MD Primary Care Provid er Reason for Visit * Reason Onset Date Comments [facility]: Maintenance 07/26/2022 Encounter Details Date Type Department Care Team Description 07/26/2022 Scheduled Telephone [facility], [facility] [address] [place] [address] [address], [facility] 132 [facility] [place] [address] 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 documented as of this encounter (statuses as of 07/26/2022) Medications Medication Sig Dispensed Refills Start Date End Date Status nystatin (NYSTOP) 288662 UNIT/GM powder Apply topically to affected area 3 times a day. 60 g 1 10/16/2019 Active Dexcom G6 Certified Registered Locksmith Device Use as directed. To test blood sugars 4 times a day Dx E11.9 1 Each 0 09/14/2020 Active Dexcom G6 Transmitter Use as directed. To test blood sugars 4 times a day. Change every 90 days. 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 She denies any fevers. Eating and drinking well. Denies any acute needs at this time. Instructedpt to call [facility] with any urgent needs or concerns. Monitoring Device: Device Type: Home Kit Device trigger/concerns with remote patient monitoring readings within past 24 hours: No Utilization within the past 24 hours: None Problems/Symptoms: Patients current temperature Unknown Highest recorded temperature within the last 24 hours unknown Use of antipyretics? No Oxygen Requirements: Room Air Increased oxygen needs in past 24 hours: No Oxygen saturation per oximeter: unknown Pulse rate per oximeter: unknown Symptoms: Other fatigue Anticoagulation: Has the patient been started on anticoagulation due to COVID-19? No Treatment/Plan: Continue to monitor Anticoagulation: N/A Test Results: Positive Your test [...] they have cold/flu symptoms, they should call [employer] COVID-19 hotline at [phone] and get tested for the virus. Treat your symptoms with ptiv-oox-ughkxxn medications, such as Tylenol. If you develop new symptoms or your symptoms are worsening, call your Yield Loss Inspector/[facility] Intake Team/PCP for advice. If you begin to experience a medical emergency, call 911 and advise them that you have tested positive for COVID-19 If you are a [employer] staff member or employee, when you receive your result, please call [employer] between 7 a.m. and 4 p.m. at [phone]. Notify them of your test results and for instructions on returning to work after your quarantine period. Your primary care provider will be notified of your results. Contact them for follow-up care. Has patient recovered (per current guidelines defining recovery)? Unable to Determine Is the patient an employee of [employer]? No. Follow Up: Patient encouraged to call with all urgent but not emergent issues. Scheduled to follow up with patient in 1 day. documented in this encounter Plan of Treatment Upcoming Encounters Date Type Specialty Care Team Description 07/27/2022 Scheduled Telephone [facility] Photographic Process Attendant, [facility] [address] [address] 07/27/2022 Hem/Onc Treatment Hematology Oncology 07/27/2022 Office Visit Pharmacy Pharmacist1, [facility] [address] [place] [address] 07/28/2022 Scheduled Telephone [facility] Photographic Process Attendant, [place] [address] [address] [place] [address] 07/28/2022 Office Visit Family Medicine Joel Jordan MD [address] [place] [address] 07/29/2022 Scheduled Telephone [facility] Photographic Process Attendant, [address] [place] [address] 07/30/2022 Scheduled Telephone [facility] Region, Nurse [place] [address] [address] [place] [address] 08/09/2022 Home Visit Family Medicine Kaylee Barakat, Community Health Gauger Chief [address] [place] [address] 08/12/2022 Office Visit Sleep Disorders Love Francisco DO [address] [place] [address] 08/23/2022 Office Visit Endocrinology Alberta Duque PA-C [address] [place], [place] [id number] 08/25/2022 Home Visit [facility] July Poe, RN 132 [facility] [place] [address] 08/30/2022 Office Visit Gastroenterology Lyssa Stout CRNP 132 [facility] [place] [address] 09/01/2022 Office Visit Gynecology Obstetrics Concetta Khan MD [address] [facility] [place] [id number] 09/14/2022 PulmDiagnostic Pulmonary Function West, Pft 132 [facility] [place] [address] 09/28/2022 Office Visit Pulmonary Reynaldo Marquez MD [address] [facility] [place] [id number] 10/26/2022 Office Visit Hematology Oncology Tono Sanchez MD 200 [place] [address] Scheduled Procedures Name Priority Associated Diagnoses Date/Ti [...] encounter Medical Devices Implanted Type Area Assembler [employer] Spider Device Identifier Shelf Expiration Date Model / Serial / Lot Microtech Sure Clip Implanted:Qty: 2 on 06/03/2020 by Janis Hatch, DO at OR [facility] Clip N/A: Colon 04/21/2022 [facility]-F-26-2 35-C-R / / [id number] documented as of this encounter Advance Directives Documents on File Type Date Recorded 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 No Code Status History Code Status Date Activated Date Inactivated Comments Full Code 12/27/2021 2:50 PM 12/27/2021 8:02 PM This order reflects the patients wishes and were consensually agreed upon. Question Answer Comments Discussion of Advance Directives occurred with: Not Discussed Does the patient have a Living Will? No Does the patient have Health Care Power of Rail Track Maintainer? No Full Code 03/31/2021 8:57 PM 04/03/2021 [...] on File Name [facility] Communication Syed Bustos Spouse Emergency Contact Care Teams Rib Chopper Relationship Specialty Start Date End Date Vanita Dunn MD [address] [place] [address] PCP - General Family Medicine 03/16/21 documented as of this encounter
--- OUTSIDE RECORDS SUMMARY | 2023-05-10 17:55 | External Medical Summary ---
Author Name Unknown Address Unknown Organization K09[facility] [address] [address] Laboratory Report Ordering Provider Test Date Status JACOB CORBETT 07/27/2022 14:27:59 Final Observation Date Value Abnormality Reference (Units ) Status WBC, Total 07/27/2022 14:27:59 3.75 Below low normal 4. 00-10.80 (K/uL) Final RBC 07/27/2022 14:27:59 2.95 3.85-5.15 (M/uL) Final Hemoglobin 07/27/2022 14:27:59 11.0 Below low normal 12 .0-15.3 (g/dL) Final HCT 07/27/2022 14:27:59 34.6 Below low normal 36. 0-45.2 (%) Final MCV 07/27/2022 14:27:59 117.3 81.5-97.5 (fL) Final MCH 07/27/2022 14:27:59 37.3 27.0-34.0 (pg) Final MCHC 07/27/2022 14:27:59 31.8 32.0-36.0 (g/dL) Final RDW 07/27/2022 14:27:59 18.0 11.5-15.5 (%) Final Platelets 07/27/2022 14:27:59 77 Below low normal 140 -400 (K/uL) Final Performing Location [facility] [address] [address]
--- OUTSIDE RECORDS SUMMARY | 2023-05-10 17:55 | External Medical Summary ---
Author Name Unknown Address Unknown Organization K09:[facility] [address] [address] Laboratory Report Ordering Provider Test Date Status JACOB CORBETT 07/27/2022 14:27:59 Final Observation Date Value Abnormality Reference (Units ) Status Nucleated erythrocytes/100 leukocytes [Ratio] in Blood by Automated count 07/27/2022 14:27:59 Final Anisocytosis [Presence] in Blood by Light microscopy 07/27/2022 14:27:59 Slight Abnormal None Seen Final Elliptocytes [Presence] in Blood by Light microscopy 07/27/2022 14:27:59 Few Abnormal None Seen Final Macrocytes [Presence] in Blood by Light microscopy 07/27/2022 14:27:59 Present Abnormal None Seen Final Dacrocytes [Presence] in Blood by Light microscopy 07/27/2022 14:27:59 Few Abnormal None Seen Final Performing Location [facility] [place] [place] [address]
--- OUTSIDE RECORDS SUMMARY | 2023-05-10 17:55 | External Medical Summary ---
Author Name Unknown Address Unknown Organization K09:[facility] [place] [address] [address] Laboratory Report Ordering Provider Test Date Status JACOB CORBETT 07/27/2022 14:27:59 Final Observation Date Value Abnormality Reference (Units ) Status SYNC LEUKOCYTES IN BLOOD BY AUTOMATED COUNT 07/27/2022 14:27:59 3.75 Below low normal 4.00-10.80 (K/uL) Final Segs 07/27/2022 14:27:59 59.2 40.0-75.0 (%) Final Lymphs % 07/27/2022 14:27:59 20.3 18.0-42.0 (%) Final Monos 07/27/2022 14:27:59 11.2 Above high normal 1.0-11.0 (%) Final Eosinophils 07/27/2022 14:27:59 8.5 Above high normal 0.0-6.0 (%) Final Basos 07/27/2022 14:27:59 0.8 0.0-2.0 (%) Final Absolute Segs 07/27/2022 14:27:59 2.22 1.80-7.70 (K/uL) Final Lymphs, absolute 07/27/2022 14:27:59 0.76 Below low normal 1.00-4.80 (K/ul) Final Monos, Abs 07/27/2022 14:27:59 0.42 0.00-1.10 (K/uL) Final Eos, Abs 07/27/2022 14:27:59 0.32 0.00-0.70 (K/uL) Final Basos, Abs 07/27/2022 14:27:59 0.03 0.00-0.20 (K/uL) Final Performing Location [facility] [place] [address] [address]
--- OUTSIDE RECORDS SUMMARY | 2023-05-10 17:56 | External Medical Summary | Summary of Care ---
Author Name Unknown Organization [facility] Address [place] [address] Care Team Providers Care Razor Grinder Name Role Phone Vanita Dunn MD Primary Care Provid er Reason for Visit * Reason Onset Date Comments [facility]: Maintenance 07/23/2022 D aily COVID call Encounter Details Date Type Department Care Team Description 07/23/2022 Scheduled Telephone [facility], [facility] 132 [facility] [place] [address] [facility], Nurse [facility] 132 [place] [address] 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 documented as of this encounter (statuses as of 07/23/2022) Medications Medication Sig Dispensed Refills Start Date End Date Status nystatin (NYSTOP) 104792 UNIT/GM powder Apply topically to affected area 3 times a day. 60 g 1 10/16/2019 Active Dexcom G6 Instrument Repair Technician Device Use as directed. To test blood sugars 4 times a day Dx E11.9 1 Each 0 09/14/2020 Active Dexcom G6 Transmitter Use as directed. To test blood sugars 4 times a day. Change every 90 days. Dx E11.9 1 Each 3 09/14/2020 Active OneTouch Verio In Vitro Strip (Glucose Blood) TESTING once daily 100 Strip 3 10/29/2020 Active OneTouch Delica Plus [id number] TESTING once daily 100 Each 3 10/29/2020 [...] as of this encounter (statuses as of 07/23/2022) Active Problems Problem Noted Date Hypertensive heart [...] as of this encounter (statuses as of 07/23/2022) Resolved Problems Problem Noted Date Resolved Date [...] pain 01/24/2012 01/17/2017 Genetic Sleep Disorder Research Other*[id number] 05/13/2011 04/07/2016 Obstructive sleep apnea 01/18/2011 12/27/19 [...] as of this encounter (statuses as of 07/23/2022) Immunizations Name Administration Dates Next Due COVID-19 [...] Telephone Encounter - Tamara Arias RN - 07/23/2022 8:54 AM EST COVID Follow up Type: [facility] Date of onset of COVID symptoms: 07/18 Date of positive COVID test: 07/18 COVID Targeted Medications: N/A Current concerns: Pt c/o sore throat that improved slightly today from last night Pt has a productive cough that is improved when using cough drops Pt denies any fevers Reports she is tired and sleeping a lot Eating and drinking ok; encouraged fluids for hydration and thinning secretions No use of Tylenol, Mucinex, Robitussin, etc- only cough drops for OTC symptom management Monitoring Device: Device Type: Home Kit Utilization within the past 24 hours: None Problems/Symptoms: Patients current temperature afebrile Highest recorded temperature within the last 24 hours unknown Use of antipyretics? No Oxygen Requirements: Room Air Increased oxygen needs in past 24 hours: N/A Oxygen saturation per oximeter: N/A Pulse rate per oximeter: N/A Symptoms: Cough Cough description: Productive Color of Sputum: unknown Consistency of Sputum: Thick (baseline) Anticoagulation: Has the patient been started on anticoagulation due to COVID-19? No Treatment/Plan: continue to monitor Anticoagulation: N/A Test Results: Positive Your test for COVID-19 came back as positive, which means you are infected with the novel coronavirus. Here is what you need to do immediately: - You are considered infectious for 10 days after the start of your infection. That is the day yoursymptoms start, or if you have no symptoms, [...] they have cold/flu symptoms, they should call [employer] COVID-19 hotline at [phone] and get tested for the virus. Treat your symptoms with jdeh-ekz-ytdwgbo medications, such as Tylenol. If you develop new symptoms or your symptoms are worsening, call your Paper Novelty Maker/[facility] Intake Team/PCP for advice. If you begin to experience a medical emergency, call 911 and advise them that you have tested positive for COVID-19 If you are a [employer] staff member or employee, when you receive your result, please call [employer] between 7 a.m. and 4 p.m. at [phone]. Notify them of your test results and for instructions on returning to work after your quarantine period. Your primary care provider will be notified of your results. Contact them for follow-up care. Has patient recovered (per current guidelines defining recovery)? No Is the patient an employee of [employer]? No. Follow Up: Patient encouraged to call with all urgent but not emergent issues. Scheduled to follow up with patient in 1 day. documented in this encounter Plan of Treatment Upcoming Encounters Date Type Specialty Care Team Description 07/24/2022 Scheduled Telephone [facility], Nurse [place] [address] 07/25/2022 Scheduled Telephone [facility], [facility] [place] [address] 07/26/2022 Scheduled Telephone [facility] [place], Matheus [place] [address] 07/27/2022 [facility] [place] [address] 07/27/2022 Hem/Onc Treatment Hematology Oncology 07/27/2022 Office Visit Pharmacy Pharmacist1, [facility] [address] [facility] [place] [address] 07/28/2022 [facility]uled Telephone [facility] [place] [address] 07/28/2022 Office Visit Family Medicine Joel Jordan MD [address] [facility] [place] [address] 07/29/2022 Scheduled Telephone [facility] [place], [place] [address] 07/30/2022 [facility]uled Telephone [facility] [place] [address] 08/09/2022 Home Visit Family Medicine Kaylee Barakat, Community Health Plasterer Maintenance [address] [place] [address] 08/12/2022 Office Visit Sleep Disorders Love Francisco DO 132 [place] [address] 08/23/2022 Office Visit Endocrinology Alberta Duque PA-C [address] [place] [address] 08/25/2022 Home Visit [facility] July Poe RN [address] [place] [address] 08/30/2022 Office Visit Gastroenterology Lyssa Stout CRNP [address] [place] [address] 09/01/2022 Office Visit Gynecology Obstetrics Concetta Khan MD [address] [facility] [place] [address] 09/14/2022 PulmDiagnostic Pulmonary Function West, [facility] [address] 09/28/2022 Office Visit Pulmonary AlmaReynaldo MD [address] [place] [address] 10/26/2022 Office Visit Hematology Oncology Tono Sanchez MD 200 [place] [address] Scheduled Procedures Name Priority Associated Diagnoses Date/Ti [...] this encounter Medical Devices Implanted Type Area Health Safety Specialist Device Identifier Shelf Expiration Date Model / Serial / Lot Microtech Sure Clip Implanted:Qty: 2 on 06/03/2020 by Janis Hatch DO at OR 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 No Code Status History Code Status Date Activated Date Inactivated Comments Full Code 12/27/2021 2:50 PM 12/27/2021 8:02 PM This order reflects the patients wishes and were consensually agreed upon. Question Answer Comments Discussion of Advance Directives occurred with: Not Discussed Does the patient have a Living Will? No Does the patient have Health Care Power of Trial Manager? No Full Code 03/31/2021 8:57 PM [...] Agents on File Name Relationship Healthcare Agent [facility] Communication Syed Bustos Spouse Emergency Contact Care Teams Razor Grinder Relationship Specialty Start Date End Date Vanita Dunn MD [address] [place], [place] [id number] PCP - General Family Medicine 03/16/21 documented as of this encounter
--- OUTSIDE RECORDS SUMMARY | 2023-05-10 17:56 | External Medical Summary | Summary of Care ---
Author Name Unknown Organization [facility] Address [place] [address] Care Team Providers Care Auto Repair Shop Manager Name Role Phone Vanita Dunn MD Primary Care Provid er Reason for Visit * Reason Onset Date Comments [facility]: Maintenance 07/25/2022 Encounter Details Date Type Department Care Team Description 07/25/2022 Scheduled Telephone [facility], [facility] [address] [place] [address] Coordinator, [facility] [address] [facility] [place] [address] 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 documented as of this encounter (statuses as of 07/25/2022) Medications Medication Sig Dispensed Refills Start Date End Date Status nystatin (NYSTOP) 241767 UNIT/GM powder Apply topically to affected area 3 times a day. 60 g 1 10/16/2019 Active Dexcom G6 Processing Manager Device Use as directed. To test blood sugars 4 times a day Dx E11.9 1 Each 0 09/14/2020 Active Dexcom G6 Transmitter Use as directed. To test blood sugars 4 times a day. Change every 90 days. Dx E11.9 1 Each 3 09/14/2020 Active OneTouch Verio In Vitro Strip (Glucose Blood) TESTING once daily 100 Strip 3 10/29/2020 Active OneTouch Delica Plus [id number] TESTING once daily 100 Each 3 10/29/2020 [...] as of this encounter (statuses as of 07/25/2022) Active Problems Problem Noted Date Hypertensive heart [...] 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 if a termite control service representative plan is made -continue lexapro Impaired [...] as of this encounter (statuses as of 07/25/2022) Resolved Problems Problem Noted Date Resolved Date [...] pain 01/24/2012 01/17/2017 Genetic Sleep Disorder Research Other*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 Feels much better. Still cough with yellow mucous. Denies fever, still has sore throat. Denies, N/V/D Eating and drinking ok. Denies SOB or chest pain. Monitoring Device: Device Type: Home Kit Device trigger/concerns with remote patient monitoring readings within past 24 hours: No Utilization within the past 24 hours: None Problems/Symptoms: Patients current temperature afebrile Highest recorded temperature within the last 24 hours Use of antipyretics? No Oxygen Requirements: Maintained on baseline oxygen: using 2 liters at night Increased oxygen needs in past 24 hours: No Oxygen saturation per oximeter: Room Air Pulse rate per oximeter: unknown Symptoms: Cough Cough description: Productive Color of Sputum: Yellow Consistency of Sputum: Thick (baseline) Anticoagulation: Has the patient been started on anticoagulation due to COVID-19? No Treatment/Plan: Daily calls Anticoagulation: N/A Test Results: Positive Your test [...] they have cold/flu symptoms, they should call [facility] COVID-19 hotline at [phone] and get tested for the virus. Treat your symptoms with uhjv-yuy-ijtrera medications, such as Tylenol. If you develop new symptoms or your symptoms are worsening, call your [employer]/[facility] Intake Team/PCP for advice. If you begin to experience a medical emergency, call 911 and advise them that you have tested positive for COVID-19 If you are a [employer] staff member or employee, when you receive your result, please call [facility] between 7 a.m. and 4 p.m. at [phone]. Notify them of your test results and for instructions on returning to work after your quarantine period. Your primary care provider will be notified of your results. Contact them for follow-up care. Has patient recovered (per current guidelines defining recovery)? No Is the patient an employee of [employer]? No. Follow Up: Patient encouraged to call with all urgent but not emergent issues. Scheduled to follow up with patient in 1 day. documented in this encounter Plan of Treatment Upcoming Encounters Date Type Specialty Care Team Description 07/26/2022 Scheduled Telephone [facility], [place] [address] [place] [address] 07/27/2022 Scheduled Telephone [facility], [place] [address] [place] [address] 07/27/2022 Hem/Onc Treatment Hematology Oncology 07/27/2022 Office Visit Pharmacy Pharmacist1, [facility] [address] 07/28/2022 Scheduled Telephone [facility], [place] [address] [address] [place] [address] 07/28/2022 Office Visit Family Medicine Joel Jordan MD [address] [place] [address] 07/29/2022 Scheduled Telephone [facility], [place] [address] [place] [address] 07/30/2022 Scheduled Telephone [facility], Nurse [address] [place] [address] 08/09/2022 Home Visit Family Medicine Kaylee Barakat, [facility] [place] [address] [place] [address] 08/12/2022 Office Visit Sleep Disorders Love Francisco DO [address] [place] [address] 08/23/2022 Office Visit Endocrinology Alberta Duque PA-C [address] [place] [address] 08/25/2022 Home Visit [facility] July Poe, RN [address] [place] [address] 08/30/2022 Office Visit Gastroenterology Lyssa Stout CRNP [address] [place] [address] 09/01/2022 Office Visit Gynecology Obstetrics Concetta Khan MD [address] [place] [address] 09/14/2022 PulmDiagnostic Pulmonary Function West, Pft 132 [facility] [place] [address] 09/28/2022 Office Visit Pulmonary AlmaReynaldo MD [address] [place] [facility] [place] [address] 10/26/2022 Office Visit Hematology Oncology Tono Sanchez MD [address] [place] [address] Scheduled Procedures Name Priority Associated Diagnoses Date/Ti [...] this encounter Medical Devices Implanted Type Area Refiner Operator Device Identifier Shelf Expiration Date Model / Serial / Lot Microtech Sure Clip Implanted:Qty: 2 on 06/03/2020 by Janis Hatch DO at OR [facility] Clip N/A: Colon 04/21/2022 [facility]-F-26-2 35-C-R / / [id number] documented as of this encounter Advance Directives Documents on File Type Date Recorded 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 No Code Status History Code Status Date Activated Date Inactivated Comments Full Code 12/27/2021 2:50 PM 12/27/2021 8:02 PM This order reflects the patients wishes and were consensually agreed upon. Question Answer Comments Discussion of Advance Directives occurred with: Not Discussed Does the patient have a Living Will? No Does the patient have Health Care Power of Radio Station Audio Engineer? No Full Code 03/31/2021 8:57 PM [...] Agents on File Name Relationship [facility] Syed Bustos Spouse Emergency Contact Care Teams Auto Repair Shop Manager Relationship Specialty Start Date End Date Vanita Dunn MD [address] [place] [address] PCP - General Family Medicine 03/16/21 documented as of this encounter
--- OUTSIDE RECORDS SUMMARY | 2023-05-10 17:56 | External Medical Summary | Summary of Care ---
Author Name Unknown Organization [place] [address] Care Team Providers Care Sheet Writer Name Role Phone Vanita Dunn MD Primary Care Provid er Reason for Visit * Reason Onset Date Comments Follow Up 07/24/2022 Encounter Details Date Type Department Care Team Description 07/24/2022 Scheduled Telephone [facility] 132 [facility] [place] [address] [facility], Nurse [facility] 132 [facility] [place] [address] 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 documented as of this encounter (statuses as of 07/24/2022) Medications Medication Sig Dispensed Refills Start Date End Date Status nystatin (NYSTOP) 214071 UNIT/GM powder Apply topically to affected area 3 times a day. 60 g 1 10/16/2019 Active Dexcom G6 Diamond Wheel Edger Device Use as directed. To test blood sugars 4 times a day Dx E11.9 1 Each 0 09/14/2020 Active Dexcom G6 Transmitter Use as directed. To test blood sugars 4 times a day. Change every 90 days. Dx E11.9 1 Each 3 09/14/2020 Active OneTouch Verio In Vitro Strip (Glucose Blood) TESTING once daily 100 Strip 3 10/29/2020 Active OneTouch Delica Plus [id number] TESTING once daily 100 Each 3 10/29/2020 [...] as of this encounter (statuses as of 07/24/2022) Active Problems Problem Noted Date Hypertensive heart [...] as of this encounter (statuses as of 07/24/2022) Resolved Problems Problem Noted Date Resolved Date [...] pain 01/24/2012 01/17/2017 Genetic Sleep Disorder Research Other*[id number] 05/13/2011 04/07/2016 Obstructive sleep apnea 01/18/2011 12/27/19 [...] as of this encounter (statuses as of 07/24/2022) Immunizations Name Administration Dates Next Due COVID-19 [...] encounter Miscellaneous Notes * Telephone Encounter - ARASH Kwok - 07/24/2022 11:32 AM EST Daily COVID follow up phone call. Call went directly to . Explained/reinforced role of caser up. Encouraged to call with any issues or concerns. Gave direct phone number and contact information. documented in this encounter Plan of Treatment Upcoming Encounters Date Type Specialty Care Team Description 07/25/2022 Scheduled Telephone [facility] Diesel Machinist, Brady Chavez [facility] [place] [address] 07/26/2022 Scheduled Telephone [facility] Diesel Machinist, [place] [address] 07/27/2022 [facility]uled Telephone [facility] [place] [address] 07/27/2022 Hem/Onc Treatment Hematology Oncology 07/27/2022 Office Visit Pharmacy Pharmacist1, [facility] [address] [place], [place] [address] 07/28/2022 Scheduled Telephone [facility]el Machinist, [facility] 132 [facility] [place] [address] 07/28/2022 Office Visit Family Medicine Joel Jordan MD [address] [place] [address] 07/29/2022 Scheduled Telephone [facility] Diesel Machinist, [facility] 132 [facility] [place] [address] 07/30/2022 Scheduled Telephone [facility], Nurse [address] [place] [address] 08/09/2022 Home Visit Family Medicine Kaylee Barakat, [facility] Litigation Docket Manager [address] [place] [address] 08/12/2022 Office Visit Sleep Disorders Love Francisco DO 132 [facility] [place] [address] 08/23/2022 Office Visit Endocrinology Alberta Duque PA-C [address] [place] [address] 08/25/2022 Home Visit [facility] July Poe RN 132 [facility] [place] [address] 08/30/2022 Office Visit Gastroenterology Lyssa Stout CRNP 132 [facility] [place] [address] 09/01/2022 Office Visit Gynecology Obstetrics Concetta Khan MD [address] [place] [address] [place] [id number] 09/14/2022 PulmDiagnostic Pulmonary Function West, Pft [address] [place] [address] 09/28/2022 Office Visit Pulmonary Reynaldo Marquez MD [address] [place], [place] [id number] 10/26/2022 Office Visit Hematology Oncology Tono Sanchez MD 200 [facility] [place] [address] Scheduled Procedures Name Priority Associated Diagnoses Date/Ti [...] this encounter Medical Devices Implanted Type Area Multi Skilled Operator Device Identifier Shelf Expiration Date Model / Serial / Lot Microtech Sure Clip Implanted:Qty: 2 on 06/03/2020 by Janis aHtch DO at OR [facility] Clip N/A: Colon 04/21/2022 [facility]-F-26-2 35-C-R / / [id number] documented as of this encounter Advance Directives Documents on File Type Date Recorded 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 No Code Status History Code Status Date Activated Date Inactivated Comments Full Code 12/27/2021 2:50 PM 12/27/2021 8:02 PM This order reflects the patients wishes and were consensually agreed upon. Question Answer Comments Discussion of Advance Directives occurred with: Not Discussed Does the patient have a Living Will? No Does the patient have Health Care Power of Assembling Machine Operator? No Full Code 03/31/2021 8:57 [...] on File Name Relationship Healthcare Agent [facility] p Communication Syed Bustos Spouse Emergency Contact Care Teams Sheet Writer Relationship Specialty Start Date End Date Vanita Dunn MD [address] [place] [address] PCP - General Family Medicine 03/16/21 documented as of this encounter
--- OUTSIDE RECORDS SUMMARY | 2023-05-10 17:57 | External Medical Summary | Summary of Care ---
Author Name Unknown Organization [place] [address] Care Team Providers Care Keg Varnisher Name Role Phone Vanita Dunn MD Primary Care Provid er Reason for Visit * Reason Onset Date Comments Information 07/21/2022 Encounter Details Date Type Department Care Team Description 07/21/2022 Telephone [facility], [facility] [place] [address] Services, Scheduling [address] [place] [address] Information 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 documented as of this encounter (statuses as of 07/22/2022) Medications Medication Sig Dispensed Refills Start Date End Date Status nystatin (NYSTOP) 806948 UNIT/GM powder Apply topically to affected area 3 times a day. 60 g 1 10/16/2019 Active Dexcom G6 Core Loader Device Use as directed. To test blood sugars 4 times a day Dx E11.9 1 Each 0 09/14/2020 Active Dexcom G6 Transmitter Use as directed. To test blood sugars 4 times a day. Change every 90 days. Dx E11.9 1 Each 3 09/14/2020 Active OneTouch Verio In Vitro Strip (Glucose Blood) TESTING once daily 100 Strip 3 10/29/2020 Active OneTouch Delica Plus [id number] TESTING once daily 100 Each 3 10/29/2020 [...] as of this encounter (statuses as of 07/22/2022) Active Problems Problem Noted Date Hypertensive heart [...] situation. 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 if a termite treater plan is made -continue lexapro Impaired mobility [...] as of this encounter (statuses as of 07/22/2022) Resolved Problems Problem Noted Date Resolved Date [...] pain 01/24/2012 01/17/2017 Genetic Sleep Disorder Research Other*[id number] 05/13/2011 04/07/2016 Obstructive sleep apnea 01/18/2011 12/27/19 [...] as of this encounter (statuses as of 07/22/2022) Immunizations Name Administration Dates Next Due COVID-19 [...] Encounters Date Type Specialty Care Team Description 07/22/2022 Scheduled Telephone [facility] Obstetrics Gynecology Md, [place] [address] 07/23/2022 Scheduled Telephone [facility], Nurse [facility] [place] [address] 07/24/2022 Scheduled Telephone [facility], Nurse [facility] [place] [address] 07/25/2022 Scheduled Telephone [facility] Obstetrics Gynecology Md, [facility] [place] [address] 07/26/2022 Scheduled Telephone [facility] Obstetrics Gynecology Md, [facility] [place] [address] 07/27/2022 Scheduled Telephone [facility] Obstetrics Gynecology Md, [facility] [place] [address] 07/27/2022 Hem/Onc Treatment Hematology Oncology 07/27/2022 Office Visit Pharmacy Pharmacist1, [facility] [address] [place] [address] 07/28/2022 Scheduled Telephone [facility]necology Md, [place] [address] [facility] [place] [address] 07/28/2022 Office Visit Family Medicine Joel Jordan MD [address] [place] [address] 07/29/2022 Scheduled Telephone [facility] Obstetrics Gynecology Md, [address] [place] [address] 07/30/2022 Scheduled Telephone [facility], Nurse [address] [place] [address] 08/09/2022 Home Visit Family Medicine Kaylee Barakat, [facility] Third Steel Pourer [address] [place] [address] 08/12/2022 Office Visit Sleep Disorders Love Francisco DO 132 [facility] [place] [address] 08/23/2022 Office Visit Endocrinology Alberta Duque PA-C [address] [place] [address] 08/25/2022 Home Visit [facility] July Poe RN 132 [facility] [place] [address] 08/30/2022 Office Visit Gastroenterology Lyssa Stout CRNP [facility] [place] [address] 09/01/2022 Office Visit Gynecology Obstetrics Concetta Khan MD [address] [place] [address] 09/14/2022 PulmDiagnostic Pulmonary Function West, Pft [address] [place] [address] 09/28/2022 Office Visit Pulmonary Reynaldo Marquez MD [address] [facility] [place] [id number] 10/26/2022 Office Visit Hematology Oncology Tono Sanchez MD 200 [facility], [place] [address] Scheduled Procedures Name Priority Associated Diagnoses Date/Ti [...] this encounter Medical Devices Implanted Type Area Pocket Operator Device Identifier Shelf Expiration Date Model / Serial / Lot Microtech Sure Clip Implanted:Qty: 2 on 06/03/2020 by Janis Hatch DO at OR 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 No Code Status History Code Status Date Activated Date Inactivated Comments Full Code 12/27/2021 2:50 PM 12/27/2021 8:02 PM This order reflects the patients wishes and were consensually agreed upon. Question Answer Comments Discussion of Advance Directives occurred with: Not Discussed Does the patient have a Living Will? No Does the patient have Health Care Power of Inverter And Clipper? No Full Code 03/31/2021 8:57 PM 04/03/2021 [...] Syed Bustos Spouse Emergency Contact Care Teams Keg Varnisher Relationship Specialty Start Date End Date Vanita Dunn MD [address] [place] [address] PCP - General Family Medicine 03/16/21 documented as of this encounter
--- OUTSIDE RECORDS SUMMARY | 2023-05-10 17:57 | External Medical Summary | Summary of Care ---
Author Name Unknown Organization [facility] Address [place] [address] Care Team Providers Care Boat Designer Name Role Phone Vanita Dunn MD Primary Care Provid er Reason for Visit * Reason Onset Date Comments [facility]: Maintenance 07/22/2022 Encounter Details Date Type Department Care Team Description 07/22/2022 Scheduled Telephone [facility], [facility] [address] [place] [address] Coordinator, [facility] [address] [facility] [place] [address] 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 documented as of this encounter (statuses as of 07/22/2022) Medications Medication Sig Dispensed Refills Start Date End Date Status nystatin (NYSTOP) 187703 UNIT/GM powder Apply topically to affected area 3 times a day. 60 g 1 10/16/2019 Active Dexcom G6 Tank Car Inspector Device Use as directed. To test blood sugars 4 times a day Dx E11.9 1 Each 0 09/14/2020 Active Dexcom G6 Transmitter Use as directed. To test blood sugars 4 times a day. Change every 90 days. Dx E11.9 1 Each 3 09/14/2020 Active OneTouch Verio In Vitro Strip (Glucose Blood) TESTING once daily 100 Strip 3 10/29/2020 Active OneTouch Delica Plus [id number] TESTING once daily 100 Each 3 10/29/2020 [...] current situation. 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 if a industrial diamond polisher plan is made -continue lexapro Impaired mobility [...] pain 01/24/2012 01/17/2017 Genetic Sleep Disorder Research Other*[id number] 05/13/2011 04/07/2016 Obstructive sleep apnea 01/18/2011 12/27/19 [...] Telephone Encounter - Silvia Squires LPN - 07/22/2022 11:16 AM EST COVID Follow up Type: [facility] Date of onset of COVID symptoms: 07/18 Date of positive COVID test: 07/18 COVID Targeted Medications: N/A Current concerns: Pt c/o sore throat Pt has a productive cough Pt denies any fevers Reports she is tired and sleeping a lot Eating and drinking ok; encouraged fluids for hydration and thinning secretions Monitoring Device: Device Type: Home Kit Device [...] they have cold/flu symptoms, they should call [employer] COVID-19 hotline at [phone] and get tested for the virus. Treat your symptoms with jgtr-tkq-wzgarlh medications, such as Tylenol. If you develop new symptoms or your symptoms are worsening, call your [facility] Stit[facility] Intake Team/PCP for advice. If you begin to experience a medical emergency, call 911 and advise them that you have tested positive for COVID-19 If you are a [employer] staff member or employee, when you receive your result, please call [employer] between 7 a.m. and 4 p.m. at [phone]. Notify them of your test results and for instructions on returning to work after your quarantine period. Your primary care provider will be notified of your results. Contact them for follow-up care. Has patient recovered (per current guidelines defining recovery)? No Is the patient an employee of [employer]? No. Follow Up: Patient encouraged to call with all urgent but not emergent issues. Scheduled to follow up with patient in 1 day. documented in this encounter Plan of Treatment Upcoming Encounters Date Type Specialty Care Team Description 07/23/2022 Scheduled Telephone [facility], Nurse [facility] [place] [id number] 07/24/2022 Scheduled Telephone [facility], Nurse [facility] [place] [address] 07/25/2022 Scheduled Telephone [facility] Forester, [facility] [place] [address] 07/26/2022 Scheduled Telephone [facility] Forester, [facility] Landon Marteil [place] [address] 07/27/2022 Scheduled Telephone [facility]ster, [facility] Landon Gutiérrezgail [place] [address] 07/27/2022 Hem/Onc Treatment Hematology Oncology 07/27/2022 Office Visit Pharmacy Pharmacist1, [facility] [address] [facility], [place] [address] 07/28/2022 Scheduled Telephone [facility], [facility] Landon Gutiérrezgail [place] [address] 07/28/2022 Office Visit Family Medicine Joel Jordan MD [address] [place] [address] 07/29/2022 Scheduled Telephone [facility]ster, [facility] [place] [address] 07/30/2022 Scheduled Telephone [facility], Nurse Brady Chavez [address] [facility] [place] [address] 08/09/2022 Home Visit Family Medicine Kaylee Barakat, Community Health Radio Recorder [address] [place] [address] 08/12/2022 Office Visit Sleep Disorders Love Francisco DO 132 [facility] [place] [address] 08/23/2022 Office Visit Endocrinology Alberta Duque PA-C [address] [place] [address] 08/25/2022 Home Visit [facility] July Poe RN 132 [facility] [place] [address] 08/30/2022 Office Visit Gastroenterology Lyssa Stout CRNP [address] [facility] [place] [address] 09/01/2022 Office Visit Gynecology Obstetrics Concetta Khan MD [address] [place] [address] [place] [address] 09/14/2022 PulmDiagnostic Pulmonary Function Scott, Pft [address] [facility] [place] [address] 09/28/2022 Office Visit Pulmonary Reynaldo Marquez MD [address] [place] [id number] 10/26/2022 Office Visit Hematology Oncology Tono Sanchez MD 200 [place] [address] Scheduled Procedures Name Priority Associated Diagnoses Date/Ti [...] this encounter Medical Devices Implanted Type Area Environmental Engineering Assistant Device Identifier Shelf Expiration Date Model / Serial / Lot Microtech Sure Clip Implanted:Qty: 2 on 06/03/2020 by Janis Hatch, DO at OR [facility] Clip N/A: Colon 04/21/2022 [facility]-F-26-2 35-C-R / / [id number] documented as of this encounter Advance Directives Documents on File Type Date Recorded Patient Wire Winding Machine Tender Expl anation Advance Directives and Living Will 04/29/2021 ADVANCE DIRECTIVE / LIVING WILL LIVING WILL AND HEALTH CARE POA Power of Bed Manager 04/29/2021 POWER OF A [facility] [...] the patient have Health Care Power of Bed Manager? No Code Status History Code Status Date Activated Date Inactivated Comments Full Code 12/27/2021 2:50 PM 12/27/2021 8:02 PM This order reflects the patients wishes and were consensually agreed upon. Question Answer Comments Discussion of Advance Directives occurred with: Not Discussed Does the patient have a Living Will? No Does the patient have Health Care Power of Bed Manager? No Full Code 03/31/2021 8:57 PM [...] Syed Bustos Spouse Emergency Contact Care Teams Boat Designer Relationship Specialty Start Date End Date Vanita Dunn MD [address] [place] [address] PCP - General Family Medicine 03/16/21 documented as of this encounter
--- OUTSIDE RECORDS SUMMARY | 2023-05-10 17:57 | External Medical Summary | Summary of Care ---
Author Name Unknown Organization [place] [address] Care Team Providers Care Visual Display Manager Name Role Phone Vanita Dunn MD Primary Care Provid er Reason for Visit * Reason Comments [facility]: Maintenance Encounter Details Date Type Department Care Team Description 07/21/2022 Home Visit [facility], [facility] 132 [facility] [place] [address] July Poe, RN 132 [facility] [place] [address] 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 documented as of this encounter (statuses as of 07/21/2022) Medications Medication Sig Dispensed Refills Start Date End Date Status nystatin (NYSTOP) 713599 UNIT/GM powder Apply topically to affected area 3 times a day. 60 g 1 10/16/2019 Active Dexcom G6 Environmental Monitoring Specialist Device Use as directed. To test blood sugars 4 times a day Dx E11.9 1 Each 0 09/14/2020 Active Dexcom G6 Transmitter Use as directed. To test blood sugars 4 times a day. Change every 90 days. Dx E11.9 1 Each 3 09/14/2020 Active OneTouch Verio In Vitro Strip (Glucose Blood) TESTING once daily 100 Strip 3 10/29/2020 Active OneTouch Delica Plus [id number] TESTING once daily 100 Each 3 10/29/2020 [...] as of this encounter (statuses as of 07/21/2022) Active Problems Problem Noted Date Hypertensive heart [...] as of this encounter (statuses as of 07/21/2022) Resolved Problems Problem Noted Date Resolved Date [...] pain 01/24/2012 01/17/2017 Genetic Sleep Disorder Research Other*[id number] 05/13/2011 04/07/2016 Obstructive sleep apnea 01/18/2011 12/27/19 [...] as of this encounter (statuses as of 07/21/2022) Immunizations Name Administration Dates Next Due COVID-19 [...] Reading Time Taken Comments Blood Pressure 108/60 07/21/2022 8:56 AM EST Pulse 64 07/21/2022 8:56 AM EST Temperature 36.4 C (97.5 F) 07/21/2022 8:56 AM ES T Respiratory Rate 18 07/21/2022 8:56 AM EST Oxygen Saturation 96% 07/21/2022 8:56 AM EST Inhaled Oxygen Concentration - - [...] Progress Notes * July Poe RN - 07/21/2022 8:12 AM EST [facility] Passenger Service Representative Visit Date: 07/21/2022 Time: 8:15 AM Name: Shaina Bustos : 1955 Current Concerns: Pt seen for return RNCM visit Over weekend pt was having cold symptoms and was scheduled to go to PCP office on Monday. She did not go to PCP appt and went to ED instead - pt and state they were told by PCP office to go to ED instead Pt Covid + Pt was started on paxlovid and discharged home Pt reports she is starting to feel better Continues to have cough with occasional mucus -unable to tell what color reports he feels she is coughing less since starting paxlovid Pt denies any other symptoms Physical Exam: BP 108/60 | Pulse 64 | Temp 36.4 C (97.5 F) | Resp 18 | SpO2 96% Pain 0 Physical Exam Constitutional: Appearance: She is obese. Cardiovascular: Rate and Rhythm: Normal rate and regular rhythm. Pulses: Normal pulses. Heart sounds: Normal heart sounds. Pulmonary: Breath sounds: Wheezing (upper lobes) present. Abdominal: General: Bowel sounds are normal. Palpations: Abdomen is soft. Musculoskeletal: Right lower leg: Edema (+1) present. Left lower leg: Edema (+1) present. Skin: General: Skin is warm and dry. Neurological: Mental Status: She is alert. Mental status is at baseline. Problems/Symptoms: Review of Systems Constitutional: Negative. HENT: Negative. Eyes: Negative. Respiratory: Positive for cough (white mucus). Cardiovascular: Positive for leg swelling. Gastrointestinal: Negative. Endocrine: Negative. Genitourinary: Negative. Musculoskeletal: Positive for arthralgias and gait problem (non-ambulatory). Skin: Positive for wound (right buttock stage 2 - 2cm x 0.6cm). Hematological: Negative. Psychiatric/Behavioral: Negative. Medication Reconciliation: (See medication list) Does patient take medications as ordered: Yes Patient Well Being: PHQ2/9: No questionnaires available. No change in living situation No falls - uses svetlana lift for transfers [facility] Completed this Visit: Yes. [facility]: Reason Completed: Status post ED visit/hospital admission [facility]-10 Interventions: Fall education provided, reviewed/provided Fall brochure Advanced Care Planning: Living Will. and Healthcare POA. Patient's Goals of Care: 1. Remain in home 2. Feel better overall Reinforcement/Education: DIABETES: -Blood sugar testing schedule: Twice [...] if no bm within 24 hrs Complete entire course of paxlovid - has two days left Home Interventions Provided: Home Intervention: Other; Eval Reinforced current Plan of Care, including self-management and medication regimen Patient's 'Red Flags': 1. Increased cough with yellow or green sputum 2. Change in mental status 3. No bm in 24 hrs Patient Needs to Remember: Call [facility] at with any new or worsening health concerns or problems, red flag symptoms. Referrals Needed: Other none Follow Up: Is there cellular connectivity/connectivity in the home? Yes Does the patient have internet in the home? Yes Patient encouraged to call the intake phone number for all urgent but not emergent issues. Is the patient new to [facility] within the last 30 days? No, Assess appropriateness for upcoming telehealth visits. Cancel telehealth visits & schedule home visit with care seal delivery vehicle team technician(s)as indicated. Provider is in agreement with Plan of Care: Yes Scheduled to follow up with patient in 2 weeks with EMILE and 2 weeks after with RNCM. Will add for daily phone calls for + Covid status July Poe RN 07/21/2022 8:15 AM documented in this encounter Plan of Treatment Upcoming Encounters Date Type Specialty Care Team Description 07/27/2022 Hem/Onc Treatment Hematology Oncology 07/27/2022 Office Visit Pharmacy Pharmacist1, [facility] [address] [place] [address] 08/09/2022 Home Visit Family Medicine Kaylee Barakat, Community Health Industrial Aerial Installer [address] [place] [address] 08/12/2022 Office Visit Sleep Disorders Love Francisco DO [address] [place] [address] 08/23/2022 Office Visit Endocrinology Alberta Duque PA-C [address] [place] [address] 08/25/2022 Home Visit [facility] July Poe RN [address] [place] [address] 08/30/2022 Office Visit Gastroenterology Lyssa Stout CRNP [address] [place] [address] 09/01/2022 Office Visit Gynecology Obstetrics Concetta Khan MD [address] [place] [address] 09/14/2022 PulmDiagnostic Pulmonary Function West, Pft [address] [place] [address] 09/28/2022 Office Visit Pulmonary Reynaldo Marquez MD [address] [facility], [place] [phone] 10/26/2022 Office Visit Hematology Oncology Tono Sanchez MD 200 [facility], [place] [phone] Scheduled Procedures Name Priority Associated Diagnoses Date/Ti [...] this encounter Medical Devices Implanted Type Area Hazardous Materials Analyst Device Identifier Shelf Expiration Date Model / Serial / Lot Microtech Sure Clip Implanted:Qty: 2 on 06/03/2020 by Janis Hatch DO at OR [facility] Clip N/A: Colon 04/21/2022 [facility]-F-26-2 35-C-R / / [id number] documented as of this encounter Advance Directives Documents on File Type Date Recorded 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 No Code Status History Code Status Date Activated Date Inactivated Comments Full Code 12/27/2021 2:50 PM 12/27/2021 8:02 PM This order reflects the patients wishes and were consensually agreed upon. Question Answer Comments Discussion of Advance Directives occurred with: Not Discussed Does the patient have a Living Will? No Does the patient have Health Care Power of Testing Lead? No Full Code 03/31/2021 8:57 PM 04/03/2021 [...] Syed Bustos Spouse Emergency Contact Care Teams Visual Display Manager Relationship Specialty Start Date End Date Vanita Dunn MD [address] [place], [place] [phone] PCP - General Family Medicine 03/16/21 documented as of this encounter"
--- OUTSIDE RECORDS SUMMARY | 2023-05-10 17:57 | External Medical Summary | Summary of Care ---
Author Name Unknown Organization [facility] Address [place] [address] Care Team Providers Care Bonding Equipment Operator Name Role Phone Vanita Dunn MD Primary Care Provid er Reason for Visit * Reason Onset Date Comments [facility]: Maintenance 07/21/2022 Encounter Details Date Type Department Care Team Description 07/21/2022 Telephone [facility], [facility] 132 [facility] [place] [address] July Poe, RN 132 [facility] [place] [address] [facility]: Maintenance 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 documented as of this encounter (statuses as of 07/21/2022) Medications Medication Sig Dispensed Refills Start Date End Date Status nystatin (NYSTOP) 869939 UNIT/GM powder Apply topically to affected area 3 times a day. 60 g 1 10/16/2019 Active Dexcom G6 Preparer Making Department Device Use as directed. To test blood sugars 4 times a day Dx E11.9 1 Each 0 09/14/2020 Active Dexcom G6 Transmitter Use as directed. To test blood sugars 4 times a day. Change every 90 days. Dx E11.9 1 Each 3 09/14/2020 Active OneTouch Verio In Vitro Strip (Glucose Blood) TESTING once daily 100 Strip 3 10/29/2020 Active OneTouch Delica Plus [id number] TESTING once daily 100 Each 3 10/29/2020 [...] pain 01/24/2012 01/17/2017 Genetic Sleep Disorder Research Other*[id number] 05/13/2011 04/07/2016 Obstructive sleep apnea 01/18/2011 12/27/19 [...] Telephone Encounter - Melissa Muhammad LPN - 07/21/2022 2:36 PM EST FYI. Call placed to [facility] [phone]. On 05/12 Pt refused the item because they wanted one that was ALL fabric. Isaak's informed the patientit would be $175.00 out of pocket and told them she would look on line. * Telephone Encounter - July Poe RN - 07/21/2022 9:08 AM EST There is an order in from April for a replacement lift sling, but pt never received it. Can you please call and check into this? They got their Svetlana lift from [facility]. Thank you! documented in this encounter Plan of Treatment Upcoming Encounters Date Type Specialty Care Team Description 07/27/2022 Hem/Onc Treatment Hematology Oncology 07/27/2022 Office Visit Pharmacy Pharmacist1, [facility] [address] [place] [address] 08/09/2022 Home Visit Family Medicine Kaylee Barakat, Community Health Custodial Supervisor [address] [place] [address] 08/12/2022 Office Visit Sleep Disorders Love Francisco DO [address] [place] [address] 08/23/2022 Office Visit Endocrinology Alberta Duque PA-C [address] [place] [address] 08/25/2022 Home Visit [facility] July Poe, RN [address] [facility] [address] 08/30/2022 Office Visit Gastroenterology Lyssa Stout CRNP [address] [place] [place] [address] 09/01/2022 Office Visit Gynecology Obstetrics Concetta Khan MD 400 [place] [address] 09/14/2022 PulmDiagnostic Pulmonary Function West, Pft [address] [facility] [place] [address] 09/28/2022 Office Visit [facility]monary [facility] [address] [facility] [phone] 10/26/2022 Office Visit Hematology Oncology Tono Sanchez MD [address] [place] [address] Scheduled Procedures Name Priority Associated Diagnoses Date/Ti [...] this encounter Medical Devices Implanted Type Area Scow Hand Device Identifier Shelf Expiration Date Model / Serial / Lot Microtech Sure Clip Implanted:Qty: 2 on 06/03/2020 by Janis Hatch, DO at OR [facility] Clip N/A: Colon 04/21/2022 [facility]-F-26-2 35-C-R / / [id number] documented as of this encounter Advance Directives Documents on File Type Date Recorded Patient Cigar Bander Expl anation Advance Directives and Living Will 04/29/2021 ADVANCE DIRECTIVE / LIVING WILL LIVING WILL AND HEALTH CARE POA Power of Community Health Nursing Director 04/29/2021 POWER OF A [facility] [...] the patient have Health Care Power of Community Health Nursing Director? No Code Status History Code Status Date Activated Date Inactivated Comments Full Code 12/27/2021 2:50 PM 12/27/2021 8:02 PM This order reflects the patients wishes and were consensually agreed upon. Question Answer Comments Discussion of Advance Directives occurred with: Not Discussed Does the patient have a Living Will? No Does the patient have Health Care Power of Community Health Nursing Director? No Full Code 03/31/2021 8:57 PM [...] Agents on File Name Relationship Healthcare Agent [facility] p Communication Syed Bustos Spouse Emergency Contact Care Teams Bonding Equipment Operator Relationship Specialty Start Date End Date Vanita Dunn MD [address] [place] [id number] PCP - General Family Medicine 03/16/21 documented as of this encounter
--- OUTSIDE RECORDS SUMMARY | 2023-05-10 17:58 | External Medical Summary | Summary of Care ---
Author Name Unknown Organization [facility] Address [place] [address] Care Team Providers Care Electric Motor Tester Assembler Name Role Phone Vanita Dunn MD Primary Care Provid er Reason for Visit * Reason Onset Date Comments [facility]: Maintenance 07/18/2022 Encounter Details Date Type Department Care Team Description 07/18/2022 Scheduled Telephone [facility], [facility] [address] [place] [address] Coordinator, [facility] [address] [facility] [place] [address] 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 documented as of this encounter (statuses as of 07/18/2022) Medications Medication Sig Dispensed Refills Start Date End Date Status nystatin (NYSTOP) 702329 UNIT/GM powder Apply topically to affected area 3 times a day. 60 g 1 10/16/2019 Active Dexcom G6 Senior Market Research Analyst Device Use as directed. To test blood sugars 4 times a day Dx E11.9 1 Each 0 09/14/2020 Active Dexcom G6 Transmitter Use as directed. To test blood sugars 4 times a day. Change every 90 days. 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 12/27/2010 Venous insufficiency 01/09/2009 DDD (degenerative disc disease), lumbar Dyslipidemia documented as of this encounter (statuses as of 07/18/2022) Resolved Problems Problem Noted Date Resolved Date [...] pain 01/24/2012 01/17/2017 Genetic Sleep Disorder Research Other*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 05/13/2011 04/07/2016 Obstructive sleep apnea 01/18/2011 12/27/19 [...] STASIS DERMATITIS 01/09/2009 05/07/2012 Edema 01/09/2009 05/05/2020 Sleep apnea 02/08/2008 03/28/2012 Overview: Compliance 12/21 [...] as of this encounter (statuses as of 07/18/2022) Immunizations Name Administration Dates Next Due COVID-19 [...] Telephone Encounter - Silvia Squires LPN - 07/18/2022 8:37 AM EST [facility] Telephonic Nurse Follow-Up Call [facility] Subprogram: Focused Care Management (3-9 months) Follow Up Call Type: 24 hour follow up Acute issue requiring follow-up call: Other: f/u viral sx Objective: 07/06/2022 1:35 PM 07/05/2022 3:19 PM 06/28/2022 2:19 PM 06/18/2022 12:37 PM 06/14/2022 2:51 PM VITALS ACROSS ENCOUNTERS BP 102/72 105/58 112/64 140/64 123/79 Pulse 70 77 64 72 59 Lab Results Component Value Date PROTEIN - [facility] 6.5 04/28/2022 WBC AUTO - [facility] 3.55 (L) 07/06/2022 Lab Results Component Value Date WBC AUTO - [facility] 3.55 (L) 07/06/2022 HGB - [facility] 11.3 (L) 07/06/2022 PLATELET AUTO - [facility] 77 (L) 07/06/2022 Lab Results Component Value Date SODIUM - [facility] 143 05/19/2022 POTASSIUM - [facility] 4.0 05/19/2022 CO2 - [facility] 23 05/19/2022 CREATININE - [facility] 0.8 05/19/2022 ESTIMATED GLOMERULAR FILTRATION RATE - [facility] 83 05/19/2022 ALBUMIN - [facility] 3.4 (L) 04/28/2022 AST - [facility] 51 (H) 04/28/2022 ALT - [facility] 30 04/28/2022 ALKALINE PHOSPHATASE - [facility] 127 04/28/2022 No results found for: PRO BNP, LEFT VENTRICULAR EJECTION FRACTION Remote Patient Monitoring: NONE Oxygen Needs: NO supplemental oxygen needs identified DME Needs: NO DME needs identified Medications: No medication or dose adjustments made during acute episode Subjective: Condition Status: No change in symptoms Current Concerns: Spoke with pt on phone. Pt voice sounds very hoarse. She c/o sore throat, cough and fatigue. Cough was productive last night but she denies a productive cough so far today. Denies any fevers but hasn't checked temp. Home covid test done yesterday was negative. Encouraged pt to drink fluids for hydration. She reports that she is seeing her PCP today. Pt is scheduled with [facility] on 07/21. Instructed pt to call [facility] for any urgent needs. Disposition: Routed to [facility] and/or [facility] Care Team for further advice Future Visits Scheduled: Future Appointments-next 60 days Date/Time Provider Specialty Dept Phone 07/18/2022 9:30 AM [facility] Ginseng Farmer [facility] [phone] 07/18/2022 2:00 PM (Arrive by 1:45 PM) Vanita Dunn MD Family Medicine [phone] 07/21/2022 8:30 AM July Poe RN [facility] [phone] 07/27/2022 1:00 PM CHAIR 12 HEM ONC [facility] Hematology Oncology [phone] 07/27/2022 1:30 PM [facility] Sp Pharmacist1 Pharmacy [phone] 08/09/2022 2:00 PM Kaylee Barakat [facility] Environmental Studies Program Director Family Medicine [phone] 08/12/2022 11:40 AM (Arrive by 11:25 AM) Love Francisco DO Sleep Disorders [phone] 08/23/2022 2:00 PM (Arrive by 1:45 PM) Alberta Duque PA-C Endocrinology [phone] 08/30/2022 1:30 PM (Arrive by 1:15 PM) ZAK Bolton Gastroenterology [phone] 09/01/2022 1:30 PM (Arrive by 1:15 PM) Concetta Khan MD Gynecology Obstetrics [phone] 09/14/2022 2:30 PM [facility] Pulmonary Function [phone] 09/28/2022 3:20 PM (Arrive by 3:05 PM) Reynaldo Marquez MD Pulmonary [phone] 10/26/2022 1:15 PM (Arrive by 1:00 PM) Tono Sanchez MD Hematology Oncology [phone] Silvia Squires LPN documented in this encounter Plan of Treatment Upcoming Encounters Date Type Specialty Care Team Description 07/18/2022 Office Visit Family Medicine Vanita Dunn MD [address] [place] [address] 07/21/2022 Home Visit [facility] July Poe RN [address] [facility] [place] [address] 07/27/2022 Hem/Onc Treatment Hematology Oncology 07/27/2022 Office Visit Pharmacy Pharmacist1, [facility] [address] [place] [address] 08/09/2022 Home Visit Family Medicine Kaylee Barakat, [facility] Environmental Studies Program Director [address] [place] [address] 08/12/2022 Office Visit Sleep Disorders Love Francisco DO [address] [place] [address] 08/23/2022 Office Visit Endocrinology Alberta Duque PA-C [address] [place] [address] 08/30/2022 Office Visit Gastroenterology Lyssa Stout, WATCH MECHANIC [address] [facility] [place] [address] 09/01/2022 Office Visit Gynecology Obstetrics Concetta Khan MD [address] [facility] [place], [place] [phone] 09/14/2022 PulmDiagnostic Pulmonary Function West, [facility] [address] [place] [address] 09/28/2022 Office Visit Pulmonary Reynaldo Marquez MD [address] [place], [place] [address] 10/26/2022 Office Visit Hematology Oncology Tono Sanchez MD [address] [facility], [place] [phone] Scheduled Procedures Name Priority Associated Diagnoses Date/Ti [...] this encounter Medical Devices Implanted Type Area Cloth Folder Hand Device Identifier Shelf Expiration Date Model / Serial / Lot Microtech Sure Clip Implanted:Qty: 2 on 06/03/2020 by Janis Hatch DO at OR [facility] Clip N/A: Colon 04/21/2022 ROCC-F-26-2 35-C-R / / [id number] documented as of this encounter Advance Directives Documents on File Type Date Recorded Patient Table Setter Expl anation Advance Directives and Living Will 04/29/2021 ADVANCE DIRECTIVE / LIVING WILL LIVING WILL AND HEALTH CARE POA Power of Machine Repairer 04/29/2021 POWER OF A [facility] [...] patient have Health Care Power of Machine Repairer? No Code Status History Code Status Date Activated Date Inactivated Comments Full Code 12/27/2021 2:50 PM 12/27/2021 8:02 PM This order reflects the patients wishes and were consensually agreed upon. Question Answer Comments Discussion of Advance Directives occurred with: Not Discussed Does the patient have a Living Will? No Does the patient have Health Care Power of Machine Repairer? No Full Code 03/31/2021 8:57 PM 04/03/2021 [...] Syed Bustos Spouse Emergency Contact Care Teams Electric Motor Tester Assembler Relationship Specialty Start Date End Date Vanita Dunn MD [address] [place] [address] PCP - General Family Medicine 03/16/21 documented as of this encounter
--- OUTSIDE RECORDS SUMMARY | 2023-05-10 17:58 | External Medical Summary | Summary of Care ---
Author Name Unknown Organization [facility] Address [place] [address] Care Team Providers Care Secretarial Stenographer Name Role Phone Vanita Dunn MD Primary Care Provid er Reason for Visit * Reason Onset Date Comments [facility]: Maintenance 07/17/2022 Encounter Details Date Type Department Care Team Description 07/17/2022 Scheduled Telephone [facility], [facility] [address] [facility] [place] [address] [facility], Nurse [facility] [address] [facility] [place] [address] 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 documented as of this encounter (statuses as of 07/17/2022) Medications Medication Sig Dispensed Refills Start Date End Date Status nystatin (NYSTOP) 722005 UNIT/GM powder Apply topically to affected area 3 times a day. 60 g 1 10/16/2019 Active Dexcom G6 Gravel Screener Device Use as directed. To test blood sugars 4 times a day Dx E11.9 1 Each 0 09/14/2020 Active Dexcom G6 Transmitter Use as directed. To test blood sugars 4 times a day. Change every 90 days. Dx E11.9 1 Each 3 09/14/2020 Active OneTouch Verio In Vitro Strip (Glucose Blood) TESTING once daily 100 Strip 3 10/29/2020 Active OneTouch Delica Plus [id number] TESTING once daily 100 Each 3 10/29/2020 [...] as of this encounter (statuses as of 07/17/2022) Active Problems Problem Noted Date Hypertensive heart [...] as of this encounter (statuses as of 07/17/2022) Resolved Problems Problem Noted Date Resolved Date [...] pain 01/24/2012 01/17/2017 Genetic Sleep Disorder Research Other*[id number] 05/13/2011 04/07/2016 Obstructive sleep apnea 01/18/2011 12/27/19 [...] as of this encounter (statuses as of 07/17/2022) Immunizations Name Administration Dates Next Due COVID-19 [...] encounter Miscellaneous Notes * Telephone Encounter - Rajwinder Carter DO - 07/17/2022 1:41 PM EST Agree with COVID testing and monitoring. Home visit tomorrow if symptoms persist. * Telephone Encounter - Caron Shea RN - 07/17/2022 1:04 PM EST F/u call: viral symptoms, hoarse voice Spoke with pt Verified by name and +productive cough with clear sputum "always cold" denies fever +sore throat +headache Denies shortness of breath Denies any acute distress Has home pulse ox but does not want to check at this time Has home COVID test in home. Will follow instructions to self-test and call [facility] [phone] with results. Encouraged to stay hydrated. Tylenol PRN headache F/u call for possible home visit tomorrow documented in this encounter Plan of Treatment Upcoming Encounters Date Type Specialty Care Team Description 07/18/2022 Scheduled Telephone [facility] Masonry Teacher, Brady Decker [address] [place] [address] 07/21/2022 Home Visit [facility] July Poe RN [address] [place] [address] 07/27/2022 Hem/Onc Treatment Hematology Oncology 07/27/2022 Office Visit Pharmacy Pharmacist1, [facility] [address] [facility] [address] 08/09/2022 Home Visit Family Medicine Kaylee Barakat, [facility] Photographic Process Attendant [address] [place] [address] 08/12/2022 Office Visit Sleep Disorders Love Francisco DO [address] [place] [address] 08/23/2022 Office Visit Endocrinology Alberta Duque PA-C [address] [place] [address] 08/30/2022 Office Visit Gastroenterology Lyssa Stout CRNP [address] [place] [address] 09/01/2022 Office Visit Gynecology Obstetrics Concetta Khan MD [address] [facility] [place] [address] 09/14/2022 PulmDiagnostic Pulmonary Function West, [facility] [address] [facility] [place] [address] 09/28/2022 Office Visit Pulmonary Reynaldo Marquez MD [address] [place] [address] 10/26/2022 Office Visit Hematology Oncology Tono Sanchez MD [address] [place] [address] Scheduled Procedures Name Priority Associated Diagnoses Date/Ti [...] this encounter Medical Devices Implanted Type Area Trucking Contractor Device Identifier Shelf Expiration Date Model / Serial / Lot Microtech Sure Clip Implanted:Qty: 2 on 06/03/2020 by Janis Hatch DO at OR [facility] Clip N/A: Colon [facility]21/20[facility]-C-R / / [id number] documented as of this encounter Advance Directives Documents on File Type Date Recorded Patient Hammer Driver Expl anation Advance Directives and Living Will 04/29/2021 ADVANCE DIRECTIVE / LIVING WILL LIVING WILL AND HEALTH CARE POA Power of Php Mysql Developer 04/29/2021 POWER OF A [facility] [...] the patient have Health Care Power of Php Mysql Developer? No Code Status History Code Status Date Activated Date Inactivated Comments Full Code 12/27/2021 2:50 PM 12/27/2021 8:02 PM This order reflects the patients wishes and were consensually agreed upon. Question Answer Comments Discussion of Advance Directives occurred with: Not Discussed Does the patient have a Living Will? No Does the patient have Health Care Power of Php Mysql Developer? No Full Code 03/31/2021 8:57 PM [...] Syed Bustos Spouse Emergency Contact Care Teams Secretarial Stenographer Relationship Specialty Start Date End Date Vanita Dunn MD [address], [place] [phone] PCP - General Family Medicine 03/16/21 documented as of this encounter
--- OUTSIDE RECORDS SUMMARY | 2023-05-10 17:58 | External Medical Summary | Summary of Care ---
Author Name Unknown Organization [facility] Address [place] [address] Care Team Providers Care Clerk Telegraph Service Name Role Phone Vanita Dunn MD Primary Care Provid er Reason for Visit * Reason Onset Date Comments Medication Refill 07/07/2022 Encounter Details Date Type Department Care Team Description [facility] [address] [facility] [place] [address] [facility], Nurse [facility] [address] [facility] [place] [address] Pressure injury of skin of sacral region, unspecified injury stage 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 documented as of this encounter (statuses as of 07/07/2022) Medications Medication Sig Dispensed Refills Start Date End Date Status nystatin (NYSTOP) 396288 UNIT/GM powder Apply topically to affected area 3 times a day. 60 g 1 10/16/2019 Active Dexcom G6 Canadian Bacon Tier Device Use as directed. To test blood sugars 4 times a day Dx E11.9 1 Each 0 09/14/2020 Active Dexcom G6 Transmitter Use as directed. To test blood sugars 4 times a day. Change every 90 days. Dx E11.9 1 Each 3 09/14/2020 Active OneTouch Verio In Vitro Strip (Glucose Blood) TESTING once daily 100 Strip 3 10/29/2020 Active OneTouch Delica Plus [id number] TESTING once daily 100 Each 3 10/29/2020 [...] 04/20/2022 Active Gabapentin 300 MG Oral Capsule (Neurontin)Indicati [...] to wound 85 g 11 07/06/2022 Active Silver sulfADIAZINE 1 % External Cream (Silvadene)Indicati ons:Pressure injury of skin of sacral region, unspecified injury stage Apply topically to affected area daily . 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 Not asked How many drinks containing a lcohol do you have on a typical day when you are drinking? Not asked How often do you have six or more drinks on one occasion? Not asked Comment: rare 10/22/2021 Food Insecurity Answer Date Recorded Within the [...] Miscellaneous Notes * Telephone Encounter - ZAK Lara - 07/06/2022 8:57 AM EDT Signed Prescriptions: Disp Refills Silver sulfADIAZINE 1 % External Cream (Si*85 g 11 Sig: Apply topically to affected area daily . Apply to wound Authorizing Provider: ASHLEIGH MORROW * Telephone Encounter - Jennifer Alexander RN - 07/05/2022 2:45 PM EDT Call from patient. [facility] EMILE did home visit today. Spoke to patient and jamie Miranda on speaker phone. States patient has open area on both buttocks. Has been using Silvadene in past daily to same. Silvadene had helped in past. Patient needs refill on Silvadene as ran out a while ago. Patient is incontinent of urine. Has pure wick system- had not been using due to vaginal bleeding. Has been treating with FUR EXAMINER marisol. Had Mirena IUD placed for same. States FUR EXAMINER Told patient to stop pure wick system due to vaginal bleeding. Next FUR EXAMINER appt is 09/01/2022. Shannan Alexander RN CCM Certified Dialysis Technician [facility] documented in this encounter Plan of Treatment Upcoming Encounters Date Type Specialty Care Team Description 07/21/2022 Home Visit [facility] July Poe RN [address] [facility] [place] [address] 07/27/2022 Hem/Onc Treatment Hematology Oncology 07/27/2022 Office Visit Pharmacy Pharmacist1, [facility] [address] [place] [address] 08/09/2022 Home Visit Family Medicine Kaylee Barakat, [facility] Final Armature Tester [address] [place] [address] 08/12/2022 Office Visit Sleep Disorders Love Francisco DO 132 [place] [address] 08/23/2022 Office Visit Endocrinology Alberta Duque PA-C [address] [place] [address] 08/30/2022 Office Visit Gastroenterology Lyssa Stout CRNP 132 [facility] [place] [address] 09/01/2022 Office Visit Gynecology Obstetrics Concetta Khan MD [address] [place] [address] 09/14/2022 PulmDiagnostic Pulmonary Function West, Pft [address] [place] [address] 09/28/2022 Office Visit Pulmonary Reynaldo Marquez MD [address] [facility] [place] [id number] 10/26/2022 Office Visit Hematology Oncology Tono Sanchez MD [address] [facility], [place] [phone] Scheduled Procedures Name Priority Associated Diagnoses Date/Ti me ESOPHAGOGASTRODUODENOSCOPY ( EGD), FLEXIBLE, TRANSORAL, DIAGNOSTIC Recall Esophagitis COLONOSCOPY FLEXIBLE PROXIMAL DIAGNOSTIC Recall History of colonic polyps Health Maintenance Due Date Last Done Comments DXA Scan 1955 DIABETES-EYE EXAM 06/12/2019 06/12/2018, , 06/12/2018, Additional history exists Pneumococcal Vaccine: 65+ Years (3 - PPSV23 or PCV20) 2020 05/02/2019, 06/01/2010 Zoster Vaccines (3 [...] this topic documented as of this encounter Implants Implanted Type Area Mail Sorting Supervisor Device Identifier Shelf Expiration Date Model / Serial / Lot Microtech Sure Clip Implanted:Qty: 2 on 06/03/2020 by Janis Hatch DO at OR [facility] Clip N/A: Colon 04/21/2022 [facility]-F-26-2 35-C-R / / [id number] documented as of this encounter Visit Diagnoses Diagnosis Pressure injury of skin of sacral region, unspecified injury stage documented in this encounter Advance Directives Documents on File Type Date Recorded Patient Cloth Dyer 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 Advanced Directive Advanced Directive Advanced Directive Advanced Directive Advanced Directive Advanced Directive Advanced Directive Advanced Directive Advanced Directive Advanced Directive Advanced Directive Advanced Directive Advanced Directive Advanced Directive Advanced Directive Advanced Directive Advanced Directive Advanced Directive Advanced Directive Advanced Directive Advanced Directive Advanced Directive Advanced Directive Advanced Directive Advanced Directive Advanced Directive Advanced Directive Advanced Directive Advanced Directive Advanced Directive Advanced Directive Advanced Directive Advanced Directive Advanced Directive Advanced Directive Advanced Directive Advanced Directive Advanced Directive Advanced Directive Advanced Directive Advanced Directive Advanced Directive Advanced Directive Advanced Directive Advanced Directive Advanced Directive Advanced Directive Advanced Directive Advanced Directive Advanced Directive Advanced Directive Advanced Directive Advanced Directive Advanced Directive Advanced Directive Advanced Directive Advanced Directive Advanced Directive Advanced Directive Advanced Directive Advanced Directive Advanced Directive Advanced Directive Advanced Directive Advanced Directive Advanced Directive Advanced Directive Advanced Directive Advanced Directive Advanced Directive Advanced Directive Advanced Directive Advanced Directive Advanced Directive Advanced Directive Advanced Directive Advanced Directive Advanced Directive Advanced Directive Advanced Directive Advanced Directive Advanced Directive Advanced Directive Advanced Directive Advanced Directive Advanced Directive Advanced Directive Advanced Directive Advanced Directive Advanced Directive Advanced Directive Advanced Directive Advanced Directive Advanced Directive Advanced Directive Advanced Directive Advanced Directive Advanced Directive Advanced Directive Advanced Directive Advanced Directive Advanced Directive Advanced Directive Advanced Directive Advanced Directive Advanced Directive Advanced Directive Advanced Directive Advanced Directive Advanced Directive Advanced Directive Advanced Directive Advanced Directive Advanced Directive Advanced Directive Advanced Directive Advanced Directive Advanced Directive Advanced Directive Advanced Directive Advanced Directive Advanced Directive Advanced Directive Advanced Directive Advanced Directive Advanced Directive Advanced Directive Advanced Directive Advanced Directive Advanced Directive Advanced Directive Advanced Directive Advanced Directive Advanced Directive Advanced Directive Advanced Directive Advanced Directive Advanced Directive Advanced Directive Advanced Directive Advanced Directive Advanced Directive Advanced Directive Advanced Directive Advanced Directive Advanced Directive Advanced Directive Advanced Directive Advanced Directive Advanced Directive Advanced Directive Advanced Directive Advanced Directive Advanced Directive Advanced Directive Advanced Directive Advanced Directive Advanced Directive Advanced Directive Advanced Directive Advanced Directive Advanced Directive Advanced Directive Advanced Directive Advanced Directive Advanced Directive Advanced Directive Advanced Directive Advanced Directive Advanced Directive Advanced Directive Advanced Directive Advanced Directive Advanced Directive Advanced Directive Advanced Directive Advanced Directive Advanced Directive Advanced Directive Advanced Directive Advanced Directive Advanced Directive Advanced Directive Advanced Directive Advanced Directive Advanced Directive Advanced Directive Advanced Directive Advanced Directive Advanced Directive Advanced Directive Advanced Directive Advanced Directive Advanced Directive Advanced Directive Advanced Directive Advanced Directive Advanced Directive Advanced Directive Advanced Directive Advanced Directive Advanced Directive Advanced Directive Advanced Directive Advanced Directive Advanced Directive Advanced Directive Advanced Directive Advanced Directive Advanced Directive Advanced Directive Advanced Directive Advanced Directive Advanced Directive Advanced Directive Advanced Directive Advanced Directive Advanced Directive Advanced Directive Advanced Directive Advanced Directive Advanced Directive Advanced Directive Advanced Directive Advanced Directive Advanced Directive Advanced Directive Advanced Directive Advanced Directive Advanced Directive Advanced Directive Advanced Directive Advanced Directive Advanced Directive Advanced Directive Advanced Directive Advanced Directive Advanced Directive Advanced Directive Advanced Directive Advanced Directive Advanced Directive Advanced Directive Advanced Directive Advanced Directive Advanced Directive Advanced Directive Advanced Directive Advanced Directive Advanced Directive Advanced Directive Advanced Directive Advanced Directive Advanced Directive Advanced Directive Advanced Directive Advanced Directive Advanced Directive Advanced Directive Advanced Directive Advanced Directive Advanced Directive Advanced Directive Advanced Directive Advanced Directive Advanced Directive Advanced Directive Advanced Directive Advanced Directive Advanced Directive Advanced Directive Advanced Directive Advanced Directive Advanced Directive Advanced Directive Advanced Directive Advanced Directive Advanced Directive Advanced Directive Advanced Directive Advanced Directive Advanced Directive Advanced Directive Advanced Directive Advanced Directive Advanced Directive Advanced Directive Advanced Directive Advanced Directive Advanced Directive Advanced Directive Advanced Directive Advanced Directive Advanced Directive Advanced Directive Advanced Directive Advanced Directive Advanced Directive Advanced Directive Advanced Directive Advanced Directive Advanced Directive Advanced Directive Advanced Directive Advanced Directive Advanced Directive Advanced Directive Advanced Directive Advanced Directive Advanced Directive Advanced Directive Advanced Directive Advanced Directive Advanced Directive Advanced Directive Advanced Directive Advanced Directive Advanced Directive Advanced Directive Advanced Directive Advanced Directive Advanced Directive Advanced Directive Advanced Directive Advanced Directive Advanced Directive Advanced Directive Advanced Directive Advanced Directive Advanced Directive Advanced Directive Advanced Directive Advanced Directive Advanced Directive Advanced Directive Advanced Directive Advanced Directive Advanced Directive Advanced Directive Advanced Directive Advanced Directive Advanced Directive Advanced Directive Advanced Directive Advanced Directive Advanced Directive Advanced Directive Advanced Directive Advanced Directive Advanced Directive Advanced Directive Advanced Directive Advanced Directive Advanced Directive Advanced Directive Advanced Directive Advanced Directive Advanced Directive Advanced Directive Advanced Directive Advanced Directive Advanced Directive Advanced Directive Advanced Directive Advanced Directive Advanced Directive Advanced Directive Advanced Directive Advanced Directive Advanced Directive Advanced Directive Advanced Directive Advanced Directive Advanced Directive Advanced Directive Advanced Directive Advanced Directive Advanced Directive Advanced Directive Advanced Directive Advanced Directive Advanced Directive Advanced Directive Advanced Directive Advanced Directive Advanced Directive Advanced Directive Advanced Directive Advanced Directive Advanced Directive Advanced Directive Advanced Directive Advanced Directive Advanced Directive Advanced Directive Advanced Directive Advanced Directive Advanced Directive Advanced Directive Advanced Directive Advanced Directive Advanced Directive Advanced Directive Advanced Directive Advanced Directive Advanced Directive Advanced Directive Advanced Directive Advanced Directive Advanced Directive Advanced Directive Advanced Directive Advanced Directive Advanced Directive Advanced Directive Advanced Directive Advanced Directive Advanced Directive Advanced Directive Advanced Directive Advanced Directive Advanced Directive Advanced Directive Advanced Directive Advanced Directive Advanced Directive Advanced Directive Advanced Directive Advanced Directive Advanced Directive Advanced Directive Advanced Directive Advanced Directive Advanced Directive Advanced Directive Advanced Directive Advanced Directive Advanced Directive 02/08/2022 11:15 AM Advanced Directive 12/16/2021 10:55 AM Advance Directives and Living Will 04/29/2021 12:00 AM ADVANCE DIRECTIVE / LIVING WILL LIVING WILL AND HEALTH CARE POA [employer] Substandard 04/29/2021 12:00 AM TOM R [facility] POA Advanced Directive 04/01/2021 1:14 PM Advanced Directive 03/22/2021 1:46 PM Advanced Directive 03/09/2021 11:29 AM Advanced Directive 02/18/2021 4:34 PM Advanced Directive 02/04/2021 1:39 AM Advanced Directive 02/01/2021 3:33 PM Advanced Directive 07/21/2020 3:01 PM Advanced Directive 07/15/2020 9:57 AM Advanced Directive 07/06/2020 10:11 AM Advanced Directive 05/26/2020 3:57 PM Advanced Directive 05/22/2020 7:36 AM Advanced Directive 05/05/2020 11:52 AM Advanced Directive 04/23/2020 8:54 AM Advanced Directive 04/15/2020 12:36 PM Latest Code Status on File Code Status Date Activated Date Inactivated Comments Full Code 02/14/2022 12:10 PM 02/14/2022 7:33 PM This o rder reflects the patients wishes and were consensually agreed upon. Discussion of Advance Directives occurred with: Not Discussed Does the patient have a Living Will? No Does the patient have Health Care Power of Attor elsie? No Full Code 12/27/2021 2:50 PM 12/27/2021 8:02 PM This order reflects the patients wishes and were consensually agreed upon. Discussion of Advance Directives occurred with: Not Discussed Does the patient have a Living Will? No Does the patient have Health Care Power of Attor elsie? No Full Code 03/31/2021 8:57 PM 04/03/2021 4:30 PM This order reflects the patients wishes and were consensually agreed upon. Discussion of Advance Directives occurred with: Patient Full Code 03/21/2021 10:44 PM 03/24/2021 4:43 PM This order reflects the patients wishes and were consensually agreed upon. Discussion of Advance Directives occurred with: Patient Full Code 03/08/2021 3:24 AM 03/11/2021 6:09 PM This o rder reflects the patients wishes and were consensually agreed upon. Discussion of Advance Directives occurred with: Patient Healthcare Agents on File Name Relationship Healthcare Agent [facility] p Communication Syed Bustos Spouse Emergency Contact Care Teams Clerk Telegraph Service Relationship Specialty Start Date End Date Vanita Dunn MD [address], [place] [phone] PCP - General Family Medicine 03/16/21 documented as of this encounter
--- OUTSIDE RECORDS SUMMARY | 2023-05-10 17:58 | External Medical Summary | Summary of Care ---
Author Name Unknown Organization [facility] Address [place] [address] Care Team Providers Care Hopper Operator Name Role Phone Vanita Dunn MD Primary Care Provid er Reason for Visit * Reason Onset Date Comments [facility]: Acute 07/16/2022 Encounter Details Date Type Department Care Team Description 07/16/2022 Scheduled Telephone [facility], [facility] [address] [facility] [place] [address] [facility], Nurse [facility] [address] [facility] [place] [address] 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 documented as of this encounter (statuses as of 07/16/2022) Medications Medication Sig Dispensed Refills Start Date End Date Status nystatin (NYSTOP) 407261 UNIT/GM powder Apply topically to affected area 3 times a day. 60 g 1 10/16/2019 Active Dexcom G6 Regional Account Manager Device Use as directed. To test blood sugars 4 times a day Dx E11.9 1 Each 0 09/14/2020 Active Dexcom G6 Transmitter Use as directed. To test blood sugars 4 times a day. Change every 90 days. Dx E11.9 1 Each 3 09/14/2020 Active OneTouch Verio In Vitro Strip (Glucose Blood) TESTING once daily 100 Strip 3 10/29/2020 Active OneTouch Delica Plus [id number] TESTING once daily 100 Each 3 10/29/2020 [...] as of this encounter (statuses as of 07/16/2022) Active Problems Problem Noted Date Hypertensive heart [...] as of this encounter (statuses as of 07/16/2022) Resolved Problems Problem Noted Date Resolved Date [...] pain 01/24/2012 01/17/2017 Genetic Sleep Disorder Research Other*[id number] 05/13/2011 04/07/2016 Obstructive sleep apnea 01/18/2011 12/27/19 [...] as of this encounter (statuses as of 07/16/2022) Immunizations Name Administration Dates Next Due COVID-19 [...] Telephone Encounter - Isabel Hamm RN - 07/16/2022 2:38 PM EDT G@H Triage c/o "always cold and can't talk" x 2 days and states that she can't talk; no other sx present; repeatedly states that "I can't talk and my can't understand what I say half the time. Denies any other sx and states that she just wanted someone to know. She is able to articulate throughout call with low volume to her voice; no apparent slurring Difficulty speaking per pt. 1444:PC to H# Spoke with patient. Patient identified by full name and date of Spouse in background also answering questions. Patient denies sore throat - sounds raspy Has non-productive cough - ? PND Denies SOB,dyspnea Bed/wheelchair bound - candace lift Was OOB yesterday and went to [employer] in wheelchair Denies fevers "Just doesn't feel well" Sent to [facility]. John Carter for further recommendations: -Symptomatic care for now -PC f/u tomorrow 07/17/22 Next G@H appointment - 07/21/22. Pt to call [facility] at for any new onset symptoms, illness, questions, or concerns prior to next scheduled follow up with [facility] Hopper Operator. Zelda Hamm RN [facility] Motor Vehicle Or Caravan Salesperson/ [place] Toll Free Number: documented in this encounter Plan of Treatment Upcoming Encounters Date Type Specialty Care Team Description 07/17/2022 Scheduled Telephone [facility], Nurse [facility] [address] [place] [address] 07/21/2022 Home Visit [facility] July Poe RN [address] [place] [address] 07/27/2022 Hem/Onc Treatment Hematology Oncology 07/27/2022 Office Visit Pharmacy Pharmacist1, [facility] [address] [facility] [place] [address] 08/09/2022 Home Visit Family Medicine Kaylee Barakat, [facility] Montessori Toddler Teacher [address] [place] [address] 08/12/2022 Office Visit Sleep Disorders Love Francisco DO [address] [place] [address] 08/23/2022 Office Visit Endocrinology Alberta Duque PA-C [address] [place] [address] 08/30/2022 Office Visit Gastroenterology Lyssa Stout CRNP [address] [place] [address] 09/01/2022 Office Visit Gynecology Obstetrics Concetta Khan MD [address] [place] [address] [place] [phone] 09/14/2022 PulmDiagnostic Pulmonary Function West, [address]ft [address] [place], [place] [address] 09/28/2022 Office Visit Pulmonary Reynaldo Marquez MD [address] [facility], [place] [phone] 10/26/2022 Office Visit Hematology Oncology Tono Sanchez MD [address] [place] [address] Scheduled Procedures Name Priority Associated Diagnoses Date/Ti [...] of this encounter Implants Implanted Type Area Inside Account Executive Device Identifier Shelf Expiration Date Model / Serial / Lot Microtech Sure Clip Implanted:Qty: 2 on 06/03/2020 by Janis Hatch DO at OR [facility] Clip N/A: Colon 04/21/2022 [facility]-F-26-2 35-C-R / / [id number] documented as of this encounter Advance Directives Documents on File Type Date Recorded 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
--- OUTSIDE RECORDS SUMMARY | 2023-05-10 17:59 | External Medical Summary ---
Author Name Unknown Address Unknown Organization K01:[facility] [place] - [address] [place] [address] Laboratory Report Ordering Provider Test Date Status VICKY HUGHES 07/06/2022 13:37:04 Final Observation Date Value Abnormality Reference (Units ) Status TSH 07/06/2022 13:37:04 0.70 0.27-4.20 (uIU/mL) Final Performing Location [facility] [place] - [address] [facility] [address]
--- OUTSIDE RECORDS SUMMARY | 2023-05-10 17:59 | External Medical Summary | Summary of Care ---
Author Name Unknown Organization [place] [address] Care Team Providers Care Pharmacy Technician Assistant Name Role Phone Vanita Dunn MD Primary Care Provid er Reason for Visit * Reason Comments IV Therapy Venofer Encounter Details Date Type Department Care Team Description 07/06/2022 Hem/Onc Treatment Hematology/Oncolog y Treatment, [place] [address] [place] [address] Maryellen, Chair 7 Hem Onc Scenery [address] [facility] [place] [address] Thrombocytopenia (HCC)*; Acquired hypothyroidism; Iron deficiency anemia due to chronic blood loss 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 documented as of this encounter (statuses as of 07/06/2022) Medications Medication Sig Dispensed Refills Start Date End Date Status nystatin (NYSTOP) 034998 UNIT/GM powder Apply topically to affected area 3 times a day. 60 g 1 10/16/2019 Active Dexcom G6 Director Of Online Merchandising Device Use as directed. To test blood sugars 4 times a day Dx E11.9 1 Each 0 09/14/2020 Active Dexcom G6 Transmitter Use as directed. To test blood sugars 4 times a day. Change every 90 days. Dx E11.9 1 Each 3 09/14/2020 Active OneTouch Verio In Vitro Strip (Glucose Blood) TESTING once daily 100 Strip 3 10/29/2020 Active OneTouch Delica Plus [id number] TESTING once daily 100 Each 3 10/29/2020 [...] as of this encounter (statuses as of 07/06/2022) Active Problems Problem Noted Date Hypertensive heart [...] as of this encounter (statuses as of 07/06/2022) Resolved Problems Problem Noted Date Resolved Date [...] pain 01/24/2012 01/17/2017 Genetic Sleep Disorder Research Other*[id number] 05/13/2011 04/07/2016 Obstructive sleep apnea 01/18/2011 12/27/19 [...] as of this encounter (statuses as of 07/06/2022) Immunizations Name Administration Dates Next Due COVID-19 [...] Sign Reading Time Taken Comments Blood Pressure 102/72 07/06/2022 1:35 PM EDT Pulse 70 07/06/2022 1:35 PM EDT Temperature 36.2 C (97.2 F) 07/06/2022 1:35 PM ED T Respiratory Rate 18 07/06/2022 1:35 PM EDT Oxygen Saturation 93% 07/06/2022 1:35 PM EDT Inhaled Oxygen Concentration - - [...] Nursing Notes * Shelli Barakat RN - 07/06/2022 4:20 PM EDT Goals: Patient will remain free from injury. Possible barriers to meeting goals: ambulating with IV pole, use of scooter to ambulate/wheelchair bound Stability of the patient: Moderately unstable - medium risk of patient condition declining or worsening Summary regarding today's goals: Met: Patient remained free of harm today Patient tolerated treatment well without any acute issues or problems. Patient left facility in stable condition and denied any further needs. * Shelli Barakat RN - 07/06/2022 2:58 PM EDT Chair 1. Port accessed without difficulty, labs drawn from port per order. Patient feels generally well today without any acute issues or complaints, just states she had beensick recently and still feels she is recovering. Safety and Risk for Injury Patient will remain free from injury. Ensure appropriate safety devices are available. Provide and maintain safe environment. documented in this encounter Plan of Treatment Upcoming Encounters Date Type Specialty Care Team Description 07/21/2022 Home Visit [facility] July Poe, RN [address] [facility] [place] [address] 07/27/2022 Hem/Onc Treatment Hematology Oncology 07/27/2022 Office Visit Pharmacy Pharmacist1, [facility] [address] 08/09/2022 Home Visit Family Medicine Kaylee Barakat, [facility] [address] [place] [address] 08/12/2022 Office Visit Sleep Disorders Love Francisco DO [address] [place] [address] 08/23/2022 Office Visit Endocrinology Alberta Duque PA-C [address] [place] [address] 08/30/2022 Office Visit Gastroenterology Lyssa Stout CRNP [address] [place] [address] 09/01/2022 Office Visit Gynecology Obstetrics Concetta Khan MD [address] [facility] [place] [address] 09/14/2022 PulmDiagnostic Pulmonary Function West, P[address] [place] [address] 09/28/2022 Office Visit Pulmonary Reynaldo Marquez MD [address] [place] [address] 10/26/2022 Office Visit Hematology Oncology Tono Sanchez MD [address] [facility] [place] [address] Pending Results Name Type Priority Associated Diagnoses Date /Time TSH WITH FREE T4 IF INDICATED Lab Routine Acquired hypothyroidism 07/06/2022 1:37 PM EDT Scheduled Procedures Name Priority Associated [...] exists TSH FOR THYROID MEDICATION MONITORING YEARLY 05/19/2023 05/19/2022, 06/10/2021, 04/05/2021, Additional history exists Mammogram 09/09/2023 09/09/2021, 08/12, [...] of this encounter Implants Implanted Type Area Dough Sheeter Device Identifier Shelf Expiration Date Model / Serial / Lot Microtech Sure Clip Implanted:Qty: 2 on 06/03/2020 by Janis Hatch DO at OR [facility] Clip N/A: Colon 04/21/2022 [facility]-F-26-2 35-C-R / / [id number] documented as of this encounter Procedures Procedure Name Priority Date/Time Associated Diagnosis Comments DIFFERENTIAL, AUTOMATED STAT 07/06/2022 1:37 PM EDT Thrombocytopenia (HCC) CBC WITH WBC DIFFERENTIAL STAT 07/06/2022 1:37 PM EDT Thrombocytopenia (HCC) CBC STAT 07/06/2022 1:37 PM EDT Thrombocytopenia (HCC) DIFFERENTIAL, TECHNOLOGIST REVIEW Routine 07/06/2022 1:37 PM EDT Thrombocytopenia (HCC) documented in this encounter Results * (ABNORMAL) DIFFERENTIAL, TECHNOLOGIST REVIEW (07/06/2022 1:37 PM EDT) [facility] nRBCs LABORATORY STAT E [facility] 56-02 Anisocytosis Slight(A) None Seen LABORATORY STAT E [facility] 56-02 Macrocytosis Present(A) None Seen LABORATORY STAT E [facility] 56-02 Specimen Blood - Blood sample taken f rom central line (situation) Performing Organization Address City/[facility]/ZIP Co de Phone Number [facility] 56-02 [address] [place] [address] * (ABNORMAL) DIFFERENTIAL, AUTOMATED (07/06/2022 1:37 PM EDT) [facility] WBC 3.55(L) 4.00 - 10.80 K/uL LABORATORY STATE [facility] 56-02 Neutrophils % 58.6 40.0 - 75.0 % LABORATORY ST [facility] 56-02 Lymphocytes % 19.2 18.0 - 42.0 % LABORATORY [facility] 56-02 Monocytes % 10.7 1.0 - 11.0 % LABORATORY STAT E [facility] 56-02 Eosinophils % 10.7(H) 0.0 - 6.0 % LABORATORY [facility] TE [facility] 56-02 Basophils % 0.8 0.0 - 2.0 % LABORATORY STAT E [facility] 56-02 Absolute Neutrophils 2.08 1.80 - 7.70 K/uL LABORATORY STATE [facility] 56-02 Absolute Lymphocytes 0.68(L) 1.00 - 4.80 K/ul LABORATORY STATE [facility] 56-02 Absolute Monocytes 0.38 0.00 - 1.10 K/uL LABORATORY STATE [facility] 56-02 Absolute Eosinophils 0.38 0.00 - 0.70 K/uL LABORATORY [facility] 56-02 Absolute Basophils 0.03 0.00 - 0.20 K/uL LABORATORY [facility] 56-02 Specimen Blood - Blood sample taken f rom central line (situation) [facility] 56-[address] [place] [address] * (ABNORMAL) CBC (07/06/2022 1:37 PM EDT) WBC 3.55(L) 4.00 - 10.80 K/uL [place] [address] RBC 3.04 3.85 - 5.15 M/uL [place] [address] HGB 11.3(L) 12.0 - 15.3 g/dL [place] [address] HCT 34.6(L) 36.0 - 45.2 % LABORATORY [address] MCV 113.8 81.5 - 97.5 fL LABORATORY [place] [address] MCH 37.2 27.0 - 34.0 [address] MCHC 32.7 32.0 - 36.0 g/dL [place] [address] RDW 17.4 11.5 - 15.5 % LABORATORY [address] PLT 77(L) 140 - 400 K/uL LABORATORY [place] [address] MPV 12.4 6.6 - 11.1 fL LABORATORY [place] [address] Specimen Blood - Blood sample taken f rom central line (situation) Performing Organization Address City/State/[facility] Co de Phone Number [place] [address] [place] [address] documented in this encounter Visit Diagnoses Diagnosis Thrombocytopenia (HCC)- Primary Thrombocytopenia, unspecified Acquired hypothyroidism Unspecified hypothyroidism 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 (chronic) documented in this encounter Administered Medications Active Administered Medications - up to 3 most recent administrations Medication Order MAR Action Action Date Dose Rate Site diphenhydrAMINE (Benadryl) inj 50 mg 50 mg, IV Push, ONCE PRN Other, Hypersensitivity Reaction, Starting on Mon07/06/22 at 1356, Until [place] 07/07/22 at 1355, For 24 hours EPINEPHrine 1 MG/ML inj 0.3 mg 0.3 mg, Intramuscular, ONCE PRN Other, Hypersensitivity Reaction or Anaphylaxis, Starting on Mon07/06/22 at 1356, Until [place] 07/07/22 at 1355, For 24 hours hEParin 100 UNIT/ML Lock Flush inj 500 Units 500 Units (5 mL), IV Lock, PRN Other, IV Flush, Starting on Mon07/06/22 at 1356, Until [place] 07/07/22 at 1355, For 24 hours, Do not flush if lock, PICC, or central line not in place; IV infusing or unable to flush. Given 07/06/2022 3:39 PM EDT 500 Units Hydrocortisone Na Succinate PF (Solu-Cortef) inj 100 mg 100 mg, IV Push, ONCE PRN Other, Hypersensitivity Reaction, Starting on Mon07/06/22 at 1356, Until [place] 07/07/22 at 1355, For 24 hours NSS infusion 500 mL, Intravenous, at 50 mL/hr, CONTINUOUS, Starting on Mon07/06/22 at 1500, Until [place] 07/07/22 at 0059 Start Infusion 07/06/2022 2:02 PM EDT 500 mL 50 mL/hr sodium chloride 0.9 % flush/inj 10 mL 10 mL, IV Push, PRN Other, IV Flush, Starting on Mon07/06/22 at 1356, Until [place] 07/07/22 at 1355, For 24 hours, Do not flush if lock, PICC, or central line not in place; IV infusing or unable to flush. Given 07/06/2022 3:39 PM EDT 10 mL Inactive Administered Medications - up to 3 most recent administrations Medication Order MAR Action Action Date Dose Rate Site Iron Sucrose (Venofer) 300 mg in NSS 250 mL ivpb 300 mg, IV Piggyback, ONCE, 1 dose, On Mon07/06/22 at 1530, Administer over 90 Minutes Start Infusion 07/06/2022 2:05 PM EDT 300 mg 166.67 mL/hr documented in this encounter Advance Directives Documents on File Type Date Recorded Patient Guide Winder 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 AND HEALTH CARE POA Power of Technical Engineer 04/29/2021 12:00 AM TOM R TRUCK AND TRANSPORT MECHANICCOUNTS INCLUDE 234 BEDS AT THE [facility] CARE POA Advanced Directive 04/01/2021 1:14 PM Advanced [...] Agents on File Name Relationship Healthcare Agent [facility] Syed Bustos Spouse Emergency Contact Care Teams Pharmacy Technician Assistant Relationship Specialty Start Date End Date Vanita Dunn MD [address] [place] [address] PCP - General Family Medicine 03/16/21 documented as of this encounter
--- OUTSIDE RECORDS SUMMARY | 2023-05-10 17:59 | External Medical Summary ---
Author Name Unknown Address Unknown Organization K09[facility] [address] Laboratory Report Ordering Provider Test Date Status JACOB CORBETT 07/06/2022 13:37:04 Final Observation Date Value Abnormality Reference (Units ) Status WBC, Total 07/06/2022 13:37:04 3.55 Below low normal 4. 00-10.80 (K/uL) Final RBC 07/06/2022 13:37:04 3.04 3.85-5.15 (M/uL) Final Hemoglobin 07/06/2022 13:37:04 11.3 Below low normal 12 .0-15.3 (g/dL) Final HCT 07/06/2022 13:37:04 34.6 Below low normal 36. 0-45.2 (%) Final MCV 07/06/2022 13:37:04 113.8 81.5-97.5 (fL) Final MCH 07/06/2022 13:37:04 37.2 27.0-34.0 (pg) Final MCHC 07/06/2022 13:37:04 32.7 32.0-36.0 (g/dL) Final RDW 07/06/2022 13:37:04 17.4 11.5-15.5 (%) Final Platelets 07/06/2022 13:37:04 77 Below low normal 140 -400 (K/uL) Final MPV 07/06/2022 13:37:04 12.4 6.6-11.1 ( fL) Final Performing Location [facility] [address]
--- OUTSIDE RECORDS SUMMARY | 2023-05-10 18:00 | External Medical Summary ---
Author Name Unknown Address Unknown Organization K09:[facility] [place] [address] Laboratory Report Ordering Provider Test Date Status JACOB CORBETT 07/06/2022 13:37:04 Final Observation Date Value Abnormality Reference (Units ) Status SYNC LEUKOCYTES IN BLOOD BY AUTOMATED COUNT 07/06/2022 13:37:04 3.55 Below low normal 4.00-10.80 (K/uL) Final Segs 07/06/2022 13:37:04 58.6 40.0-75.0 (%) Final Lymphs % 07/06/2022 13:37:04 19.2 18.0-42.0 (%) Final Monos 07/06/2022 13:37:04 10.7 1.0-11.0 (%) Final Eosinophils 07/06/2022 13:37:04 10.7 Above high normal 0.0-6.0 (%) Final Basos 07/06/2022 13:37:04 0.8 0.0-2.0 (%) Final Absolute Segs 07/06/2022 13:37:04 2.08 1.80-7.70 (K/uL) Final Lymphs, absolute 07/06/2022 13:37:04 0.68 Below low normal 1.00-4.80 (K/ul) Final Monos, Abs 07/06/2022 13:37:04 0.38 0.00-1.10 (K/uL) Final Eos, Abs 07/06/2022 13:37:04 0.38 0.00-0.70 (K/uL) Final Basos, Abs 07/06/2022 13:37:04 0.03 0.00-0.20 (K/uL) Final Performing Location [facility] [place] [address]
--- OUTSIDE RECORDS SUMMARY | 2023-05-10 18:00 | External Medical Summary | Summary of Care ---
Author Name Unknown Organization [place] [address] Care Team Providers Care Water Vessel Captain Name Role Phone Vanita Dunn MD Primary Care Provid er Reason for Visit * Reason Comments eRx-Medication Refill Encounter Details Date Type Department Care Team Description 07/04/2022 Refill [place] [id number] [place] [address] Vanita Dunn MD [address] [place] [address] 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 documented as of this encounter (statuses as of 07/05/2022) Medications Medication Sig Dispensed Refills Start Date End Date Status nystatin (NYSTOP) 894747 UNIT/GM powder Apply topically to affected area 3 times a day. 60 g 1 10/16/2019 Active Dexcom G6 Solvent Plant Operator Device Use as directed. To test blood sugars 4 times a day Dx E11.9 1 Each 0 09/14/2020 Active Dexcom G6 Transmitter Use as directed. To test blood sugars 4 times a day. Change every 90 days. Dx E11.9 1 Each 3 09/14/2020 Active OneTouch Verio In Vitro Strip (Glucose Blood) TESTING once daily 100 Strip 3 10/29/2020 Active OneTouch Delica Plus [id number] TESTING once daily 100 Each 3 10/29/2020 [...] bedtime . 45 mL 3 04/20/2022 Active Silver sulfADIAZINE 1 % External Cream (Silvadene)Indication s:Pressure injury of skin of sacral region, unspecified injury stage Apply topically to affected area daily . Apply to wound 85 g 11 04/29/2022 Active Gabapentin 300 MG Oral Capsule (Neurontin)Indication [...] (abdominal pain). 40 Tablet 0 06/13/2022 Active Hospital, Clinic, or Other Facility Administered [...] as of this encounter (statuses as of 07/05/2022) Active Problems Problem Noted Date Hypertensive heart [...] as of this encounter (statuses as of 07/05/2022) Resolved Problems Problem Noted Date Resolved Date [...] pain 01/24/2012 01/17/2017 Genetic Sleep Disorder Research Other*[id number] 05/13/2011 04/07/2016 Obstructive sleep apnea 01/18/2011 12/27/19 [...] as of this encounter (statuses as of 07/05/2022) Immunizations Name Administration Dates Next Due COVID-19 [...] encounter Miscellaneous Notes * Telephone Encounter - Serg Martinez RPh - 07/05/2022 1:16 PM EDT Refused Prescriptions: Disp Refills Levothyroxine Sodium 125 MCG Oral Tablet (*30 Tab*0 Sig: TAKE 1TABLET BY MOUTH DAILY BEFORE BREAKFASTRefused By: Bryan MARTINEZ for Refusal: Other (comment below)Reason for Refusal Comment: dose changed * Telephone Encounter - Serg Martinez RPh - 07/05/2022 1:15 PM EDT 150mcg sent on 05/20 from endocrinology Serg Jiang PharmD Clinical Pharmacist TelePharmacy [phone] 07/05/2022 1:16 PM documented in this encounter Plan of Treatment Upcoming Encounters Date Type Specialty Care Team Description 07/05/2022 Pharmacy Pharmacy Pharmacist2, [facility] [address] [place] [address] Type 2 diabetes mellitus with hemoglobin A1c goal of less than 7.0% (HCC)* 07/06/2022 Hem/Onc Treatment Hematology Oncology [place], Chair [address] Hem Onc [address] [place] [address] 07/21/2022 Home Visit [facility] July Poe, RN 132 [facility] [place] [address] 07/27/2022 Office Visit Pharmacy Pharmacist1, [facility] [address] [place] [address] 08/12/2022 Office Visit Sleep Disorders Love Francisco DO [address] [place] [address] 08/23/2022 Office Visit Endocrinology Alberta Duque PA-C [address] [place] [address] 08/30/2022 Office Visit Gastroenterology Lyssa Stout CRNP [address] [place] [address] 09/01/2022 Office Visit Gynecology Obstetrics Concetta Khan MD 400 [facility] [place] [address] 09/14/2022 PulmDiagnostic Pulmonary Function [place], [address] [place] [address] 09/28/2022 Office Visit Pulmonary Reynaldo Marquez MD [address] [place] [address] 10/26/2022 Office Visit Hematology Oncology Tono Sanchez MD [address] [place] [address], [place] [address] Scheduled Procedures Name Priority Associated Diagnoses Date/Ti [...] of this encounter Implants Implanted Type Area Molding Cutter Device Identifier Shelf Expiration Date Model / Serial / Lot Microtech Sure Clip Implanted:Qty: 2 on 06/03/2020 by Janis Hatch DO at OR [facility] Clip N/A: Colon 04/21/2022 [facility]-F-26-2 35-C-R / / [id number] documented as of this encounter Advance Directives Documents on File Type Date Recorded Patient Relief Salesperson 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 WILL AND HEALTH CARE POA Power of City Bus Driver 04/29/2021 12:00 AM TOM R OF PRODUCTION LINE MECHANIC HEALTH CARE POA Advanced Directive 04/01/2021 1:14 PM [...] Bustos Spouse Emergency Contact Care Teams Water Vessel Captain Relationship Specialty Start Date End Date Vanita Dunn MD [address], [place] [id number] PCP - General Family Medicine 03/16/21 documented as of this encounter
--- OUTSIDE RECORDS SUMMARY | 2023-05-10 18:00 | External Medical Summary ---
Author Name Unknown Address Unknown Organization K09:[facility] [place] [address] Laboratory Report Ordering Provider Test Date Status JACOB CORBETT 07/06/2022 13:37:04 Final Observation Date Value Abnormality Reference (Units ) Status Nucleated erythrocytes/100 leukocytes [Ratio] in Blood by Automated count 07/06/2022 13:37:04 Final Anisocytosis [Presence] in Blood by Light microscopy 07/06/2022 13:37:04 Slight Abnormal None Seen Final Macrocytes [Presence] in Blood by Light microscopy 07/06/2022 13:37:04 Present Abnormal None Seen Final Performing Location [facility] [place] [address]
--- OUTSIDE RECORDS SUMMARY | 2023-05-10 18:00 | External Medical Summary | Summary of Care ---
Author Name Unknown Organization [place] [address] Care Team Providers Care Data Warehousing Architect Name Role Phone Vanita Dunn MD Primary Care Provid er Encounter Details Date Type Department Care Team Description 03/02/2022 Orders Only Hematology/Oncology [facility] [address] [place] [address] Tono Sanchez MD [address] [place] [address] 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 documented as of this encounter (statuses as of 07/01/2022) Medications Medication Sig Dispensed Refills Start Date End Date Status nystatin (NYSTOP) 647167 UNIT/GM powder Apply topically to affected area 3 times a day. 60 g 1 10/16/2019 Active Dexcom G6 Medicaid Plan Compliance Director Device Use as directed. To test blood sugars 4 times a day Dx E11.9 1 Each 0 09/14/2020 Active Dexcom G6 Transmitter Use as directed. To test blood sugars 4 times a day. Change every 90 days. Dx E11.9 1 Each 3 09/14/2020 Active OneTouch Verio In Vitro Strip (Glucose Blood) TESTING once daily 100 Strip 3 10/29/2020 Active OneTouch Delica Plus [id number] TESTING once daily 100 Each 3 10/29/2020 Active Nitroglycerin 0.4 MG Sublingual Tablet Sublingual (Nitrostat) Place 1 Tab under the tongue every 5 minutes as needed for Pain, Chest. up to 3 doses in 15 minutes 25 Tab 11 03/03/2021 Active BiPAP every night at bedtime. 0 Active MEDICAL INSTRUCTIONSIndication s:Iron deficiency anemia due to chronic blood loss [...] Active Fluticasone Propionate 50 MCG/ACT Nasal Suspension (Flonase)Indications:S inus congestion USE 2 SPRAYS IN EACH NOSTRIL ONCE DAILY DIRECTED 16 g 5 06/11/2021 Active Budesonide-Formoterol Fumarate 160-4.5 MCG/ACT Inhalation Aerosol (Symbicort) Inhale by mouth 2 Puffs 2 times a day . 10.2 g 1 09/27/2021 Active Dexcom G6 Sensor use as directed to test blood sugar 4 times daily. change sensor every 10 days 3 Each 3 09/27/2021 Active Disposable Brief X-LargeIndications:Hyp ertensive heart disease with chronic diastolic congestive heart [...] Chloride ER 10 MEQ Oral Tablet Extended ReleaseIndications:Hyp okalemia Take by mouth 1 Tablet in the morning. With food.. 90 Tablet 3 12/21/2021 Active Escitalopram Oxalate 20 MG Oral Tablet (Lexapro)Indications:R ecurrent major depressive disorder, in partial remission (HCC) TAKE 1 TABLET BY MOUTH DAILY 90 Tablet 3 01/16/2022 Active Nadolol 40 MG Oral Tablet (Corgard)Indications:H TN, goal below 140/90 TAKE 1 TABLET BY MOUTH ONCE DAILY 90 Tablet 1 01/18/2022 Active Lidocaine-Prilocaine 2.5-2.5 % External Cream (Emla)Indications:Enco unter for antineoplastic chemotherapy Apply topically to affected [...] Active Trulicity 4.5 MG/0.5ML Subcutaneous Solution Pen-injector (Dulaglutide)Indicatio ns:Type 2 diabetes mellitus with hemoglobin A1c goal of less than 7.0% (HCC) inject 4.5mg (1 pen) under the skin once weekly 6 mL 5 02/22/2022 Active documented as of this encounter (statuses as of 07/01/2022) Active Problems Problem Noted Date Hypertensive heart [...] as of this encounter (statuses as of 07/01/2022) Resolved Problems Problem Noted Date Resolved Date [...] pain 01/24/2012 01/17/2017 Genetic Sleep Disorder Research Other*[id number] 05/13/2011 04/07/2016 Obstructive sleep apnea 01/18/2011 12/27/19 [...] as of this encounter (statuses as of 07/01/2022) Immunizations Name Administration Dates Next Due COVID-19 [...] Date Type Specialty Care Team Description 07/05/2022 Home Visit Family Medicine Kaylee Barakat, Community Health Records Manager [address] [place] [address] 07/05/2022 Pharmacy Pharmacy Pharmacist2, [facility] [address] [place] [address] 07/06/2022 Hem/Onc Treatment Hematology Oncology [place], Chair 7 Hem Onc Scenery [address] [place] [address] [address] 07/21/2022 [facility] Visit [facility] July Poe, RN [address] [place] [address] 08/12/2022 Office Visit Sleep Disorders Love Francisco DO 132 [place] [address] 08/23/2022 Office Visit Endocrinology Alberta Duque PA-C [address] [place] [address] 08/30/2022 Office Visit Gastroenterology Lyssa Stout CRNP [address] [place] [address] 09/01/2022 Office Visit Gynecology Obstetrics Concetta Khan MD [address] [place] [address] 09/14/2022 PulmDiagnostic Pulmonary Function West, Pft [address] [place] [address] 09/28/2022 Office Visit Pulmonary Reynaldo Marquez MD [address] [place] [address] 10/26/2022 Office Visit Hematology Oncology Tono Sanchez MD 200 [place] [address] Scheduled Procedures Name Priority Associated Diagnoses Date/Ti [...] of this encounter Implants Implanted Type Area Hearing Therapy Teacher Device Identifier Shelf Expiration Date Model / Serial / Lot Microtech Sure Clip Implanted:Qty: 2 on 06/03/2020 by Janis Hatch DO at OR [facility] Clip N/A: Colon 04/21/2022 [facility]-F-26-2 35-C-R / / [id number] documented as of this encounter Additional Health Concerns Infection Onset Date Last Indicated Resolved Time COVID-19 (confirmed) 04/29/2022 04/29/2022 022 12:19 AM EDT Respiratory Rule-Out 06/21/2022 06/21/2022 022 3:51 AM EDT documented as of this encounter Advance Directives Documents on File Type Date Recorded Patient Restoration Ecologist 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 WILL AND HEALTH CARE POA Power of Captain Assistant 04/29/2021 12:00 AM TOM R OF MERCHANDISING REPRESENTATIVE HEALTH CARE POA Advanced Directive 04/01/2021 1:14 [...] Syed Bustos Spouse Emergency Contact Care Teams Data Warehousing Architect Relationship Specialty Start Date End Date Vanita Dunn MD [address] [place] [address] PCP - General Family Medicine 03/16/21 documented as of this encounter
--- OUTSIDE RECORDS SUMMARY | 2023-05-10 18:00 | External Medical Summary | Summary of Care ---
Author Name Unknown Organization [facility] [place] [address] Care Team Providers Care Bid Analyst Name Role Phone Vanita Dunn MD Primary Care Provid er Reason for Visit * Reason Comments [facility]: Maintenance Encounter Details Date Type Department Care Team Description 06/28/2022 [facility] Visit [facility], [facility] 132 [facility] [place] [address] July Poe, RN 132 [facility] [place] [address] 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 documented as of this encounter (statuses as of 06/28/2022) Medications Medication Sig Dispensed Refills Start Date End Date Status nystatin (NYSTOP) 494165 UNIT/GM powder Apply topically to affected area 3 times a day. 60 g 1 10/16/2019 Active Dexcom G6 Suction Operator Device Use as directed. To test blood sugars 4 times a day Dx E11.9 1 Each 0 09/14/2020 Active Dexcom G6 Transmitter Use as directed. To test blood sugars 4 times a day. Change every 90 days. Dx E11.9 1 Each 3 09/14/2020 Active OneTouch Verio In Vitro Strip (Glucose Blood) TESTING once daily 100 Strip 3 10/29/2020 Active OneTouch Delica Plus [id number] TESTING once daily 100 Each 3 10/29/2020 [...] as of this encounter (statuses as of 06/28/2022) Active Problems Problem Noted Date Hypertensive heart [...] as of this encounter (statuses as of 06/28/2022) Resolved Problems Problem Noted Date Resolved Date [...] pain 01/24/2012 01/17/2017 Genetic Sleep Disorder Research Other*[id number] 05/13/2011 04/07/2016 Obstructive sleep apnea 01/18/2011 12/27/19 [...] as of this encounter (statuses as of 06/28/2022) Immunizations Name Administration Dates Next Due COVID-19 [...] Reading Time Taken Comments Blood Pressure 112/64 06/28/2022 2:19 PM EDT Pulse 64 06/28/2022 2:19 PM EDT Temperature 36.9 C (98.4 F) 06/28/2022 2:19 PM ED T Respiratory Rate 18 06/28/2022 2:19 PM EDT Oxygen Saturation 94% 06/28/2022 2:19 PM EDT Inhaled Oxygen Concentration - - [...] Progress Notes * July Poe RN - 06/28/2022 2:11 PM EDT [facility] Sourcing Manager BALDOMERO #4 Visit Date: 06/28/2022 Time: 2:11 PM Name: Shaina Bustos : 1955 Current Concerns: Pt seen for BALDOMERO #4 Admitted to [facility] 06/06 - 06/08 for constipation Pt continues to show reluctance on taking Lactulose as ordered - does not like to "make a mess" despite being educated on the importance of this medication CG reports she has been taking it 3x a day and had two bowel movements yesterday No bm yet today - cg reports she usually go later in the day or evening Pt denies any pain at this time She does continue to have intermittent pain of right side Pt/cg denies any other concerns at this time Blood sugars continue to range in the mid to high 200's mostly Denies any issues with extreme highs or lows Physical Exam: BP 112/64 | Pulse 64 | Temp 36.9 C (98.4 F) | Resp 18 | SpO2 94% Pain 0 Physical Exam Constitutional: Appearance: She [...] Positive for leg swelling. Gastrointestinal: Negative. Genitourinary: Positive for vaginal bleeding (intermittent, small amt). Musculoskeletal: Positive for arthralgias and gait problem (non-ambulatory). Skin: Negative. Psychiatric/Behavioral: Negative. Medication Reconciliation: (See medication list) Does patient take medications as ordered: Yes Patient Well Being: PHQ2/9: No questionnaires available. No change in living situation No falls [facility]-10 Completed this Visit: No. Routine visit and No falls since last visit Advanced Care Planning: Living Will. and Healthcare POA. Patient's Goals of Care: 1. Remain at home 2. Feel better overall Reinforcement/Education: DIABETES: [...] heme/onc Be sure to take lactulose to have at least 2 bowel movements per day May take Miralax daily if no bm within 24 hrs Home Interventions Provided: Home Intervention: Other; Eval Reinforced current Plan of Care, including self-management and medication regimen Patient's 'Red Flags': 1. Increased pain 2. Change in mental status 3. No bm in 24 hrs Patient Needs to Remember: Call [facility] at with any new or worsening health concerns or problems, red flag symptoms. Referrals Needed: Other none Follow Up: Is there cellular connectivity/connectivity in the home? Yes Does the patient have internet in the home? Yes Patient encouraged to call the intake phone number for all urgent but not emergent issues. Is the patient new to [facility] within the last 30 days? No, Assess appropriateness for upcoming telehealth visits. Cancel telehealth visits & schedule home visit with care user experience team lead(s)as indicated. Provider is in agreement with Plan of Care: Yes Scheduled to follow up with patient in 1 weeks with EMILE and 2 weeks after with RNMICHELLE. July Poe RN 06/28/2022 2:11 PM documented in this encounter Plan of Treatment Upcoming Encounters Date Type Specialty Care Team Description 07/05/2022 Home Visit Family Medicine Kaylee Barakat, Community Health Tensioning Machine Operator [address] [place] [address] 07/05/2022 Pharmacy Pharmacy Pharmacist2, [facility] 200 [place] [address] 07/06/2022 Hem/Onc Treatment Hematology Oncology [place], Chair 7 Hem Onc [facility] 200 [facility], [place] [address] 07/21/2022 Home Visit [facility] July Poe RN 132 [facility] [place] [address] 08/12/2022 Office Visit Sleep Disorders Love Francisco DO 132 [facility] [place] [address] 08/23/2022 Office Visit Endocrinology Alberta Duque PA-C [address] [place] [address] 08/30/2022 Office Visit Gastroenterology Lyssa Stout CRNP 132 [facility] [place] [address] 09/01/2022 Office Visit Gynecology Obstetrics Concetta Khan MD [address] [place] [address] 09/14/2022 PulmDiagnostic Pulmonary Function West, Pft 132 [facility] [place] [address] 09/28/2022 Office Visit Pulmonary Reynaldo Marquez MD [address] [place] [id number] 10/26/2022 Office Visit Hematology Oncology Tono Sanchez MD 200 [facility], [place] [address] Scheduled Procedures Name Priority Associated Diagnoses Date/Ti [...] of this encounter Implants Implanted Type Area Ledge Man Device Identifier Shelf Expiration Date Model / Serial / Lot Microtech Sure Clip Implanted:Qty: 2 on 06/03/2020 by Janis Hatch DO at OR [facility] Clip N/A: Colon 04/21/2022 [facility]-F-26-2 35-C-R / / [id number] documented as of this encounter Advance Directives Documents on File Type Date Recorded Patient Electronics Recycler 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 WILL AND HEALTH CARE POA Power of Job Coach 04/29/2021 12:00 AM TOM R OF GROUP PRODUCT MANAGER HEALTH CARE POA Advanced Directive 04/01/2021 1:14 [...] patient have Health Care Power of Attor lesie? No Full Code 12/27/2021 2:50 PM 12/27/2021 [...] Agents on File Name Relationship Healthcare Agent [facility] p Communication Syed Bustos Spouse Emergency Contact Care Teams Bid Analyst Relationship Specialty Start Date End Date Vanita Dunn MD [address] [place] [address] PCP - General Family Medicine 03/16/21 documented as of this encounter
--- OUTSIDE RECORDS SUMMARY | 2023-05-10 18:00 | External Medical Summary | Summary of Care ---
Author Name Unknown Organization [place] [address] Care Team Providers Care Special Shopper Name Role Phone Vanita Dunn MD Primary Care Provid er Reason for Visit * Reason Comments [facility]: Maintenance Encounter Details Date Type Department Care Team Description 07/05/2022 Home Visit Care Coordination [address] [place] [address] Marisol Lundy, [facility] [address] [place] [address] 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 documented as of this encounter (statuses as of 07/05/2022) Medications Medication Sig Dispensed Refills Start Date End Date Status nystatin (NYSTOP) 909199 UNIT/GM powder Apply topically to affected area 3 times a day. 60 g 1 10/16/2019 Active Dexcom G6 Manager Of Warehouse Device Use as directed. To test blood sugars 4 times a day Dx E11.9 1 Each 0 09/14/2020 Active Dexcom G6 Transmitter Use as directed. To test blood sugars 4 times a day. Change every 90 days. Dx E11.9 1 Each 3 09/14/2020 Active OneTouch Verio In Vitro Strip (Glucose Blood) TESTING once daily 100 Strip 3 10/29/2020 Active OneTouch Delica Plus [id number] TESTING once daily 100 Each 3 10/29/2020 [...] pain 01/24/2012 01/17/2017 Genetic Sleep Disorder Research Other*[id number] 05/13/2011 04/07/2016 Obstructive sleep apnea 01/18/2011 12/27/19 [...] Sign Reading Time Taken Comments Blood Pressure 105/58 07/05/2022 3:19 PM EDT Pulse 77 07/05/2022 3:19 PM EDT Temperature 36.7 C (98 F) 07/05/2022 3:19 PM EDT Respiratory Rate - - Oxygen Saturation 95% 07/05/2022 3:19 PM EDT Inhaled Oxygen Concentration - - [...] as of this encounter Progress Notes * Marisol Lundy, [facility] - 07/05/2022 1:46 PM EDT [facility] Visit Date: 07/05/2022 Time: 1:46 PM Name: Shaina Bustos : 1955 Referral Source: dialysis clinical manager Source of Information: Patient Spoken language: japanese Patient can read in Serbian: Yes. Filter Bed Placer needed: No. COVID-19 screening completed: Yes Vitals: Vital signs completed: Yes, vital signs within normal range. BP 108/60 | Pulse 71 | Temp 36.1 C (96.9 F) | SpO2 97% Condition Changes: Changes in health or social status since last visit: Yes-coughing recently The patient has new concerns since last visit: Yes, coughing for the past 3-4 days Progress towards goals since last visit: Medications: Medication review completed? No, none requested Does the patient have barriers to medication adherence? No. Patient reports difficulty paying for medications or might in the future: No. Telehealth: This is a telehealth visit: No. Symptoms Surveys and Evaluations: ROSAURA0 completed this visit: Yes. Score is 4 or more? Yes, notified Provider/Crm Solution Architect Last flowsheet values for ROSAURA0: Age 65+: 1 (07/05/2022 1:00 PM) Diagnosis (3 or more co-existing): 1 (07/05/2022 1:00 PM) Prior history of falls within 3 months: 0 (07/05/2022 1:00 PM) Incontinence: 1 (07/05/2022 1:00 PM) Visual impairment: 1 (07/05/2022 1:00 PM) Impaired functional mobility: 1 (07/05/2022 1:00 PM) Environmental hazards: 0 (07/05/2022 1:00 PM) Poly Pharmacy (4 or more prescriptions - any type): 1 (07/05/2022 1:00 PM) Pain affecting level of function: 1 (07/05/2022 1:00 PM) Cognitive impairment: 0 (07/05/2022 1:00 PM) Score - a score of 4 or more is considered at risk for fallin (07/05/2022 1:00 PM) Heart Failure Checklist A "good day" for the patient looks like most days Today is different than a "good day": No Patient describes sleep as good sometimes Normal The patient has been asked to track the amount of fluid they drink: No. There is an AMC scale in the home: No. Typically, the patient's meals look like breakfast-eggs or toast and bananna Lunch-soup, sandwich or salad Dinner-meat/fish and vegestable that are healthy Patient's food choices are lower in sodium. Home Safety Does member identify any safety issues related to entering or exiting their home? No Does the patient need a wheelchair ramp to access the home? No Snow/ice removal assistance available? Yes Is there adequate lighting? Yes Are there railings on stairs? Yes Do sidewalks appear to be in good repair? N/A Does member identify any safety issues related to the interior of their home? No If durable medical equipment is used, halls and doorways easy to navigate? Yes Are there trip hazards in the home? No Are there working smoke detectors/CO2 detectors? Yes Is a health condition present or an air quality concern that an air conditioner or other coolingdevice will help? Yes Do stairs in the home have railings? N/A Is there a medical alert or phone near patient? Yes Are walkways clear and well lit? Yes Does member identify any safety issues related to utilizing or accessing the bathroom in their home? No Does bathroom have grab bars needed? Yes The patient reports needing help getting on and off the toilet? N/A Does the patient report needing help bathing? N/A Patient uses portable toilet. Does not get out of bed Are there any other identified issues/needs? No. If yes specify: Social Determinants of Health: Safety: o Patient reports feeling unsafe in their home: No. Housing: o Patient reports they are at risk of becoming homeless: No. Home/Living situation: o Patient lives alone: No, with spouse and [id number] o Bathroom is located 1 o Bedroom is located 1 o Patient has to go up and down steps: No. Patient receives help from family/friends/neighbors/community agencies etc.: Yes. Type of help the patient receives: transportation and picking up RX. Patient perceives the help they receive as adequate: o Yes. DME: o DME used: Wheelchair, O2, Hospital [...] Patient receives community or public transportation assistance: Yes. Specify agency: she can use [employer], but spouse drives to [employer]. o Patient reports trouble getting a ride [...] the care team 1. S/s of UTI 2. Fever 3. Increased sob Reinforced pt 3 red flags by care team. Patient states she has been coughing more over the past 3-4 days and has been bringing up phlegm but can't spit it out. She said her chest is getting sore coughing. Patient said she is going to call [facility] about the coughing to see what they suggest. She has an open sore that she has had in the past on the lower right side below buttock. HH aide isusing cream to clean it up and cover, but it is still open. In the past they used a RX for Silver ??? But they are out of this RX/OTC and would like it to be ordered. Ruth is the aide who is there Monday-Monday from 8:30-4:30. Follow Up: Patient encouraged to call the intake phone number for all urgent but not emergent issues. Scheduled to follow up with patient in 6 weeks after RN Marisol Lundy [facility] 07/05/2022 1:46 PM documented in this encounter Plan of Treatment Upcoming Encounters Date Type Specialty Care Team Description 07/05/2022 Pharmacy Pharmacy Pharmacist2, [facility] [address] [place] [place] [address] Type 2 diabetes mellitus with hemoglobin A1c goal of less than 7.0% (HCC)* 07/06/2022 Hem/Onc Treatment Hematology Oncology [place], Chair 7 Hem Onc Scene [address] [place] [address] [address] 07/21/2022 [facility] Visit [facility] July Poe RN [address] [place] [address] 07/27/2022 Office Visit Pharmacy Pharmacist1, [facility] [address] [place] [address] 08/12/2022 Office Visit Sleep Disorders Love Francisco DO 132 [facility] [place] [address] 08/23/2022 Office Visit Endocrinology Alberta Duque PA-C [address] [place] [address] 08/30/2022 Office Visit Gastroenterology Lyssa Stout CRNP [address] [place] [address] 09/01/2022 Office Visit Gynecology Obstetrics Concetta Khan MD [address] [facility] [place] [address] 09/14/2022 PulmDiagnostic Pulmonary Function West, Pft 132 [facility] [place] [address] 09/28/2022 Office Visit Pulmonary [facility] [address] [facility] [id number] 10/26/2022 Office Visit Hematology Oncology Tono Sanchez MD 200 [facility] [place] [address] Scheduled Procedures Name Priority Associated Diagnoses Date/Ti [...] of this encounter Implants Implanted Type Area Radiotelegrapher Device Identifier Shelf Expiration Date Model / Serial / Lot Microtech Sure Clip Implanted:Qty: 2 on 06/03/2020 by Janis Hatch DO at OR [facility] Clip N/A: Colon 04/21/2022 [facility]-F-26-2 35-C-R / / [id number] documented as of this encounter Advance Directives Documents on File Type Date Recorded Patient Finding Fastener 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 WILL AND HEALTH CARE POA Power of Dealer Account Manager 04/29/2021 12:00 AM TOM R OF SOAKING ROOM OPERATOR HEALTH CARE POA Advanced Directive 04/01/2021 1:14 [...] Agents on File Name Relationship Healthcare Agent [facility] p Communication Syed Bustos Spouse Emergency Contact Care Teams Special Shopper Relationship Specialty Start Date End Date Vanita Dunn MD [address] [place] [address] PCP - General Family Medicine 03/16/21 documented as of this encounter
--- OUTSIDE RECORDS SUMMARY | 2023-05-10 18:01 | External Medical Summary | Summary of Care ---
Author Name Unknown Organization [place] [address] Care Team Providers Care Spool Carrier Name Role Phone Vanita Dunn MD Primary Care Provid er Reason for Visit * Reason Onset Date Comments COVID-19 Screening 06/25/2022 Encounter Details Date Type Department Care Team Description 06/25/2022 Telephone COVID19 Screening [facility] DEPT CLOSED 06/22/21 [address] [place] [id number], Automated Provider COVID-19 Screening 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 documented as of this encounter (statuses as of 06/25/2022) Medications Medication Sig Dispensed Refills Start Date End Date Status nystatin (NYSTOP) 822464 UNIT/GM powder Apply topically to affected area 3 times a day. 60 g 1 10/16/2019 Active Dexcom G6 Bioinformatics Associate Device Use as directed. To test blood sugars 4 times a day Dx E11.9 1 Each 0 09/14/2020 Active Dexcom G6 Transmitter Use as directed. To test blood sugars 4 times a day. Change every 90 days. Dx E11.9 1 Each 3 09/14/2020 Active OneTouch Verio In Vitro Strip (Glucose Blood) TESTING once daily 100 Strip 3 10/29/2020 Active OneTouch Delica Plus [id number] TESTING once daily 100 Each 3 10/29/2020 [...] as of this encounter (statuses as of 06/25/2022) Active Problems Problem Noted Date Hypertensive heart [...] as of this encounter (statuses as of 06/25/2022) Resolved Problems Problem Noted Date Resolved Date [...] pain 01/24/2012 01/17/2017 Genetic Sleep Disorder Research Other*[id number] 05/13/2011 04/07/2016 Obstructive sleep apnea 01/18/2011 12/27/19 [...] as of this encounter (statuses as of 06/25/2022) Immunizations Name Administration Dates Next Due COVID-19 [...] encounter Miscellaneous Notes * Telephone Encounter - Covid Results [facility] - 06/25/2022 10:14 PM EDT Outreach Attempts IVR Call Jun 25 2022 9:17AM Answered - Success Results COVID: Negative Flu: Negative RSV: Negative IVR Message: Cecy Merritt. Your tests from 06/21/2022 00:00:00 for COVID-19, Flu, and RSV all came back negative.This means you are NOT infected with any of these viruses. If your cold/flu symptoms last longer than 7 days or get worse, contact your primary care physician. If you don't have a primary care physician, go to the nearest [facility] or urgent care clinic. To establish care with a [employer] provider, please call [phone]. Practice social distancing and good hand hygiene to keep yourself and others safe. Your results are also available for your reference in your [employer] account under 'Test & Lab Results.' If you are not enrolled in [employer], you can create an account by going to [email or web address]. You will also receive a letter in the mail with your results. If you are a [employer] staff member or employee, when you receive your result, please call [facility] between 7 a.m. and 4 p.m. at [phone]. Notify them of your test results and for instructions on returning to work after your quarantine period. Press 1 if you would like to speak with a nurse, press 2 to hear this message again. documented in this encounter Plan of Treatment Upcoming Encounters Date Type Specialty Care Team Description 06/28/2022 Home Visit [facility] July Poe, RN [address] [place] [address] [address] 07/05/2022 Home Visit Family Medicine Kaylee Barakat, Community Health Bread Packer [address] [place] [address] 07/05/2022 Pharmacy Pharmacy Pharmacist2, [facility] Sp [address] [place] [address] 07/06/2022 Hem/Onc Treatment Hematology Oncology [place], Chair 7 Hem Onc Sc[address]ery [address] [place] [address] 08/12/2022 Office Visit Sleep Disorders Love Francisco DO [address] [place] [address] [address] 08/23/2022 Office Visit Endocrinology Alberta Duque PA-C [address] [place] [address] 08/30/2022 Office Visit Gastroenterology Lyssa Stout CRNP [address] [place] [address] [address] 09/01/2022 Office Visit Gynecology Obstetrics Concetta Khan MD [address] [facility] [place] [id number] 09/14/2022 PulmDiagnostic Pulmonary Function West, Pft [address] [place] [address] [address] 09/28/2022 Office Visit Pulmonary Reynaldo Marquez MD [address] [place] [address] 10/26/2022 Office Visit Hematology Oncology Tono Sanchez MD [address] [place] [address] Scheduled Procedures Name Priority Associated Diagnoses Date/Ti [...] of this encounter Implants Implanted Type Area Roller Printer Device Identifier Shelf Expiration Date Model / Serial / Lot Microtech Sure Clip Implanted:Qty: 2 on 06/03/2020 by Janis Hatch DO at OR H Clip N/A: Colon 04/21/2022 [facility]-F-26-2 35-C-R / / [id number] documented as of this encounter Advance Directives Documents on File Type Date Recorded Patient Director Financial Planning 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 WILL AND HEALTH CARE POA Power of Stay Cutter 04/29/2021 12:00 AM TOM [facility] POA Advanced Directive 04/01/2021 1:14 PM Advanced [...] Agents on File Name Relationship Healthcare Agent [facility] p Communication Syed Bustos Spouse Emergency Contact Care Teams Spool Carrier Relationship Specialty Start Date End Date Vanita Dunn MD [address] [facility] [place] [address] PCP - General Family Medicine 03/16/21 documented as of this encounter
--- OUTSIDE RECORDS SUMMARY | 2023-05-10 18:02 | External Medical Summary | Summary of Care ---
Author Name Unknown Organization [place] [address] Care Team Providers Care Teletypesetter Name Role Phone Vanita Dunn MD Primary Care Provid er Reason for Visit * Reason Onset Date Comments COVID-19 Screening 06/24/2022 Encounter Details Date Type Department Care Team Description 06/24/2022 Telephone COVID19 Screening [facility] DEPT CLOSED 06/22/21 [address] [place] [id number], Automated Provider COVID-19 Screening 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 documented as of this encounter (statuses as of 06/24/2022) Medications Medication Sig Dispensed Refills Start Date End Date Status nystatin (NYSTOP) 340766 UNIT/GM powder Apply topically to affected area 3 times a day. 60 g 1 10/16/2019 Active Dexcom G6 Managed Care Coordinator Device Use as directed. To test blood sugars 4 times a day Dx E11.9 1 Each 0 09/14/2020 Active Dexcom G6 Transmitter Use as directed. To test blood sugars 4 times a day. Change every 90 days. Dx E11.9 1 Each 3 09/14/2020 Active OneTouch Verio In Vitro Strip (Glucose Blood) TESTING once daily 100 Strip 3 10/29/2020 Active OneTouch Delica Plus [id number] TESTING once daily 100 Each 3 10/29/2020 [...] as of this encounter (statuses as of 06/24/2022) Active Problems Problem Noted Date Hypertensive heart [...] as of this encounter (statuses as of 06/24/2022) Resolved Problems Problem Noted Date Resolved Date [...] pain 01/24/2012 01/17/2017 Genetic Sleep Disorder Research Other*[id number] 05/13/2011 04/07/2016 Obstructive sleep apnea 01/18/2011 12/27/19 [...] as of this encounter (statuses as of 06/24/2022) Immunizations Name Administration Dates Next Due COVID-19 [...] Notes * Telephone Encounter - Covid Results [facility] - 06/24/2022 11:17 PM EDT Outreach Attempts IVR Call Jun 24 2022 10:06AM Answered - Failed to Authenticate Inbound Call Jun 24 2022 10:21AM Answered - Failed to Authenticate IVR Message: Unsuccessful contact, no education provided documented in this encounter Plan of Treatment Upcoming Encounters Date Type Specialty Care Team Description 06/28/2022 Home Visit [facility] July Poe, RN [address] [place] [address] 07/05/2022 Home Visit Family Medicine Kaylee Barakat, Community Health Polishing Machine Operator Helper [address] [place] [address] 07/05/2022 Pharmacy Pharmacy Pharmacist2, [facility] Sp 200 [facility] [place] [address] 07/06/2022 Hem/Onc Treatment Hematology Oncology [place], Chair 7 Hem Onc Scenery [address] [facility] [place] [address] 08/12/2022 Office Visit Sleep Disorders Love Francisco, DO 132 [place] [address] 08/23/2022 Office Visit Endocrinology Alberta Duque PA-C [address] [place] [address] 08/30/2022 Office Visit Gastroenterology Lyssa Stout CRNP 132 [place] [address] 09/01/2022 Office Visit Gynecology Obstetrics Concetta Khan MD [address] [place], [place] [phone] 09/14/2022 PulmDiagnostic Pulmonary Function West, Pft 132 [facility] [place] [address] 09/28/2022 Office Visit Pulmonary Reynaldo Marquez MD [address] [place] [address] 10/26/2022 Office Visit Hematology Oncology Tono Sanchez MD [address] [place] [address] Scheduled Procedures Name Priority Associated Diagnoses Date/Ti [...] of this encounter Implants Implanted Type Area Crew Chief Device Identifier Shelf Expiration Date Model / Serial / Lot Microtech Sure Clip Implanted:Qty: 2 on 06/03/2020 by Janis Hatch DO at OR [facility] Clip N/A: Colon 04/21/2022 [facility]-F-26-2 35-C-R / / [id number] documented as of this encounter Advance Directives Documents on File Type Date Recorded Patient Blast Furnace Checker 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 WILL AND HEALTH CARE POA Power of Bomb Squad Commander 04/29/2021 12:00 AM TOM R OF SALES CLERK SUPERVISOR HEALTH CARE POA Advanced Directive 04/01/2021 1:14 [...] File Name Relationship Healthcare Agent [facility] Communication Syed Bustos Spouse Emergency Contact Care Teams Teletypesetter Relationship Specialty Start Date End Date Vanita Dunn MD [address] [place], [place] [phone] PCP - General Family Medicine 03/16/21 documented as of this encounter
--- OUTSIDE RECORDS SUMMARY | 2023-05-10 18:02 | External Medical Summary | Summary of Care ---
Author Name Unknown Organization [place] [address] Care Team Providers Care Clicking Machine Operator Name Role Phone Vanita Dunn MD Primary Care Provid er Reason for Visit * Reason Onset Date Comments COVID-19 Screening 06/22/2022 Encounter Details Date Type Department Care Team Description 06/22/2022 Telephone COVID19 Screening [facility] DEPT CLOSED 06/22/21 [address] [place] [id number], Automated Provider COVID-19 Screening 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 documented as of this encounter (statuses as of 06/23/2022) Medications Medication Sig Dispensed Refills Start Date End Date Status nystatin (NYSTOP) 907765 UNIT/GM powder Apply topically to affected area 3 times a day. 60 g 1 10/16/2019 Active Dexcom G6 Obstetrics Scrub Nurse Device Use as directed. To test blood sugars 4 times a day Dx E11.9 1 Each 0 09/14/2020 Active Dexcom G6 Transmitter Use as directed. To test blood sugars 4 times a day. Change every 90 days. Dx E11.9 1 Each 3 09/14/2020 Active OneTouch Verio In Vitro Strip (Glucose Blood) TESTING once daily 100 Strip 3 10/29/2020 Active OneTouch Delica Plus [id number] TESTING once daily 100 Each 3 10/29/2020 [...] as of this encounter (statuses as of 06/23/2022) Active Problems Problem Noted Date Hypertensive heart [...] as of this encounter (statuses as of 06/23/2022) Resolved Problems Problem Noted Date Resolved Date [...] pain 01/24/2012 01/17/2017 Genetic Sleep Disorder Research Other*[id number] 05/13/2011 04/07/2016 Obstructive sleep apnea 01/18/2011 12/27/19 [...] as of this encounter (statuses as of 06/23/2022) Immunizations Name Administration Dates Next Due COVID-19 [...] encounter Miscellaneous Notes * Telephone Encounter - Yaneth Odmo [facility] - 06/23/2022 12:34 AM EDT Outreach Attempts IVR Call Jun 22 2022 5:18PM Voicemail - Voicemail IVR Message: Cecy Merritt. This is [employer] calling to let you know you have test results available. You can access this result in your [employer] account under 'Test & Lab Results'. If you are not enrolled in [employer], you can create an account by going to [email or web address] You can also call back at [phone] or we will attempt to reach you later tomorrow. documented in this encounter Plan of Treatment Upcoming Encounters Date Type Specialty Care Team Description 06/24/2022 Office Visit Sleep Disorders Love Francisco DO [address] [address] [address] 06/28/2022 [facility] July Poe, UMA [address] [place] [address] [address] 07/05/2022 Home Visit Family Medicine Kaylee Barakat, Community Health General Inspector [address] [place] [address] 07/05/2022 Pharmacy Pharmacy Pharmacist2, [facility] Sp [address] [place] [address] 07/06/2022 Hem/Onc Treatment Hematology Oncology [place], Chair 7 Hem Onc [facility] [address] [place] [address] 08/23/2022 Office Visit Endocrinology Alberta Duque PA-C [address] [place], [place] [phone] 08/30/2022 Office Visit Gastroenterology Lyssa Stout CRNP [address] [place] [address] 09/01/2022 Office Visit Gynecology Obstetrics Concetta Khan MD [address] [place], [place] [address] 09/14/2022 PulmDiagnostic Pulmonary Function West, Pft [address] [place] [address] 09/28/2022 Office Visit Pulmonary Reynaldo Marquez MD [address] [place] [phone] 10/26/2022 Office Visit Hematology Oncology Tono Sanchez MD 200 [place] [address] Scheduled Procedures Name Priority Associated Diagnoses Date/Ti [...] of this encounter Implants Implanted Type Area Interlibrary Loan Services Librarian Device Identifier Shelf Expiration Date Model / Serial / Lot Microtech Sure Clip Implanted:Qty: 2 on 06/03/2020 by Janis Hatch DO at OR [facility] Clip N/A: Colon 04/21/2022 [facility]-F-26-2 35-C-R / / [id number] documented as of this encounter Additional Health Concerns Infection Onset Date Last Indicated Resolved Time Respiratory Rule-Out 06/21/2022 06/21/2022 022 3:51 AM EDT documented as of this encounter Advance Directives Documents on File Type Date Recorded Patient Custom Marine Canvas Fabricator 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 WILL AND HEALTH CARE POA Power of Gas Technician 04/29/2021 12:00 AM TOM R OF LAND LEASING INFORMATION CLERK HEALTH CARE POA Advanced Directive 04/01/2021 1:14 [...] Syed Bustos Spouse Emergency Contact Care Teams Clicking Machine Operator Relationship Specialty Start Date End Date Vanita Dunn MD [address] [place] [address] PCP - General Family Medicine 03/16/21 documented as of this encounter
--- OUTSIDE RECORDS SUMMARY | 2023-05-10 18:03 | External Medical Summary | Summary of Care ---
Author Name Unknown Organization [place] [address] Care Team Providers Care Eye Specialist Name Role Phone Vanita Dunn MD Primary Care Provid er Reason for Visit * Reason Onset Date Comments [facility]: Maintenance 06/22/2022 Encounter Details Date Type Department Care Team Description 06/22/2022 Telephone [facility], [facility] [address] [facility] [place] [address] [facility], Nurse [facility] [address] [facility] [place] [address] [facility]: Maintenance 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 documented as of this encounter (statuses as of 06/22/2022) Medications Medication Sig Dispensed Refills Start Date End Date Status nystatin (NYSTOP) 746844 UNIT/GM powder Apply topically to affected area 3 times a day. 60 g 1 10/16/2019 Active Dexcom G6 Customer Services Supervisor Device Use as directed. To test blood sugars 4 times a day Dx E11.9 1 Each 0 09/14/2020 Active Dexcom G6 Transmitter Use as directed. To test blood sugars 4 times a day. Change every 90 days. Dx E11.9 1 Each 3 09/14/2020 Active OneTouch Verio In Vitro Strip (Glucose Blood) TESTING once daily 100 Strip 3 10/29/2020 Active OneTouch Delica Plus [id number] TESTING once daily 100 Each 3 10/29/2020 [...] as of this encounter (statuses as of 06/22/2022) Active Problems Problem Noted Date Hypertensive heart [...] current situation. 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 if a park guard plan is made -continue lexapro Impaired mobility [...] as of this encounter (statuses as of 06/22/2022) Resolved Problems Problem Noted Date Resolved Date [...] pain 01/24/2012 01/17/2017 Genetic Sleep Disorder Research Other*[id number] 05/13/2011 04/07/2016 Obstructive sleep apnea 01/18/2011 12/27/19 [...] as of this encounter (statuses as of 06/22/2022) Immunizations Name Administration Dates Next Due COVID-19 [...] Telephone Encounter - Liz Grullon LPN - 06/22/2022 3:30 PM EDT Call to pt made aware respiratory swab was negative Pt expressed understanding documented in this encounter Plan of Treatment Upcoming Encounters Date Type Specialty Care Team Description 06/24/2022 Office Visit Sleep Disorders Love Francisco DO [address] [place] [address] [address] 06/28/2022 Home Visit [facility] July Poe, RN [address] [place] [address] [address] 07/05/2022 Home Visit Family Medicine Kaylee Barakat, Community Health Bathhouse Attendant [address] [place] [address] 07/05/2022 Pharmacy Pharmacy Pharmacist, [address] [address] 07/06/2022 Hem/Onc Treatment Hematology Oncology [place], Chair [address] [place] [address] 08/23/2022 Office Visit Endocrinology Alberta Duque PA-C [address] [place] [address] 08/30/2022 Office Visit Gastroenterology Lyssa Stout CRNP [address] [place] [address] 09/01/2022 Office Visit Gynecology Obstetrics Concetta Khan MD [address] [place], [place] [phone] 09/14/2022 PulmDiagnostic Pulmonary Function West, Pft 132 [place] [address] 09/28/2022 Office Visit Pulmonary Reynaldo Marquez MD [address] [facility] [place] [phone] 10/26/2022 Office Visit Hematology Oncology Tono Sanchez MD 200 [place] [address] Scheduled Procedures Name Priority Associated Diagnoses Date/Ti [...] of this encounter Implants Implanted Type Area De Icer Finisher Device Identifier Shelf Expiration Date Model / Serial / Lot Microtech Sure Clip Implanted:Qty: 2 on 06/03/2020 by Janis Hatch DO at OR [facility] Clip N/A: Colon 04/21/2022 [facility]-F-26-2 35-C-R / / [id number] documented as of this encounter Additional Health Concerns Infection Onset Date Last Indicated Resolved Time Respiratory Rule-Out 06/21/2022 06/21/2022 022 3:51 AM EDT documented as of this encounter Advance Directives Documents on File Type Date Recorded Patient Tank Setter 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 WILL AND HEALTH CARE POA Power of Email Designer 04/29/2021 12:00 AM TOM R OF PROGRAM WRITER HEALTH CARE POA Advanced Directive 04/01/2021 1:14 [...] Syed Bustos Spouse Emergency Contact Care Teams Eye Specialist Relationship Specialty Start Date End Date Vanita Dunn MD [address] [place] [address] PCP - General Family Medicine 03/16/21 documented as of this encounter
--- OUTSIDE RECORDS SUMMARY | 2023-05-10 18:03 | External Medical Summary | Summary of Care ---
Author Name Unknown Organization [place] [address] Care Team Providers Care Air Conditioner Installer Helper Name Role Phone Vanita Dunn MD Primary Care Provid er Reason for Visit * Reason Comments Outpatient Testing Encounter Details Date Type Department Care Team Description 06/21/2022 Laboratory [facility], [facility] [address] [place] [address] [facility] [address] [place] [address] Viral upper respiratory tract infection 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 documented as of this encounter (statuses as of 06/21/2022) Medications Medication Sig Dispensed Refills Start Date End Date Status nystatin (NYSTOP) 336314 UNIT/GM powder Apply topically to affected area 3 times a day. 60 g 1 10/16/2019 Active Dexcom G6 Manager Dental Device Use as directed. To test blood sugars 4 times a day Dx E11.9 1 Each 0 09/14/2020 Active Dexcom G6 Transmitter Use as directed. To test blood sugars 4 times a day. Change every 90 days. Dx E11.9 1 Each 3 09/14/2020 Active OneTouch Verio In Vitro Strip (Glucose Blood) TESTING once daily 100 Strip 3 10/29/2020 Active OneTouch Delica Plus [id number] TESTING once daily 100 Each 3 10/29/2020 [...] as of this encounter (statuses as of 06/21/2022) Active Problems Problem Noted Date Hypertensive heart disease with congesti ve heart failure 04/29/2022 Pancytopenia 04/29/2022 Chronic diastolic (congestive) heart jaymie lure 09/13/2021 Portal hypertensive gastropathy 03/16/20 21 Esophageal varices 07/06/2020 Iron deficiency anemia due to chronic bl ood loss 12/03/2019 Thrombocytopenia 05/02/2019 Gastroesophageal reflux disease 04/08/20 19 Fibromyalgia 04/08/2019 DM type 2 with diabetic peripheral neuro heather 04/04/2019 Primary insomnia 04/04/2019 Recurrent major depressive disorder, in partial remission 04/04/2019 Impaired mobility and ADLs 04/04/2019 Wheelchair dependent 12/21/2018 THAD on CPAP 12/26/2017 Cirrhosis of liver 11/20/2017 Chronic pain syndrome 01/17/2017 MEDICATION USE AGREEMENT 01/17/2017 Overview: 01/17/17 Acquired hypothyroidism 12/12/2016 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 1 10/09/2015 Obesity, morbid (more than 100 lbs over ideal weight or BMI > 40) 02/09/2015 Restrictive lung disease 12/10/2014 Type 2 diabetes mellitus with hemoglobin A1c goal of less than 8.0% 09/26/2013 Overview: ICD-10 update of inactive term Vitamin D deficiency 09/26/2013 Lymphedema 03/11/2013 Venous stasis dermatitis of both lower e xtremities 05/07/2012 NG (nonalcoholic steatohepatitis) 04/12 HTN, goal below 130/80 03/27/2012 Cerebral palsy 01/24/2012 Spinal stenosis of lumbar region without neurogenic claudication 12/27/2010 Venous insufficiency 01/09/2009 DDD (degenerative disc disease), lumbar Dyslipidemia documented as of this encounter (statuses as of 06/21/2022) Resolved Problems Problem Noted Date Resolved Date [...] of colon 05/02/2012 02/14/20 18 Constipation 05/02/2012 09/13/2021 Internal hemorrhoids 04/12/2012 07/02/2014 Migraine variant, intractable [...] pain 01/24/2012 01/17/2017 Genetic Sleep Disorder Research Other*[id number] 05/13/2011 04/07/2016 Obstructive sleep apnea 01/18/2011 12/27/19 [...] as of this encounter (statuses as of 06/21/2022) Immunizations Name Administration Dates Next Due COVID-19 [...] Disorders Love Francisco DO [address] [id number] 06/28/2022 Home Visit [facility] July Poe RN [address] [id number] 07/05/2022 Home Visit Family Medicine Kaylee Barakat, [facility] Asphalt Roller Operator [address] [place] [address] 07/05/2022 Pharmacy Pharmacy Pharmacist2, [facility] [address] [place] [address] 07/06/2022 Hem/Onc Treatment Hematology Oncology Andrew, Chair 7 Hem Onc [facility] [address] [place] [address] 08/23/2022 Office Visit Endocrinology Alberta Duque PA-C [address] [place] [address] 08/30/2022 Office Visit Gastroenterology Lyssa Stout CRNP [address] [place] [address] 09/01/2022 Office Visit Gynecology Obstetrics Concetta Khan MD [address] [place] [address] 09/14/2022 PulmDiagnostic Pulmonary Function [place], [address] [facility] [place] [address] 09/28/2022 Office Visit Pulmonary Reynaldo Marquez MD [address] [place] [address] 10/26/2022 Office Visit Hematology Oncology Tono Sanchez MD [address] [place] [address] Pending Results Name Type Priority Associated Diagnoses Date /Time RESPIRATORY PATHOGEN PANEL, PCR Lab Routine Viral upper respiratory tract infection 06/21/2022 1:59 PM EDT Scheduled Procedures Name Priority Associated [...] of this encounter Implants Implanted Type Area Online Publisher Device Identifier Shelf Expiration Date Model / Serial / Lot [employer] Sure Clip Implanted:Qty: 2 on 06/03/2020 by Janis Hatch DO at OR [facility] Clip N/A: Colon 04/21/2022 [facility]-F-[id number] 35-C-[id number] / / [id number] documented as of this encounter Visit Diagnoses Diagnosis Viral upper respiratory tract infection Acute upper respiratory infections of unspecified site documented in this encounter Additional Health Concerns Infection Onset Date Last Indicated Resolved Time Respiratory Rule-Out 06/21/2022 06/21/2022 documented as of this encounter Advance Directives Documents on File Type Date Recorded Patient Activity Manager 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 WILL AND HE[facility] C[facility] POA Power of Engine Generator Assembler 04/29/2021 12:00 AM TOM R OF [facility] POA Advanced Directive 04/01/2021 1:14 [...] Syed Bustos Spouse Emergency Contact Care Teams Air Conditioner Installer Helper Relationship Specialty Start Date End Date Vanita Dunn MD [address] [place] [address] PCP - General Family Medicine 03/16/21 documented as of this encounter
--- OUTSIDE RECORDS SUMMARY | 2023-05-10 18:03 | External Medical Summary | Summary of Care ---
Author Name Unknown Organization [place] [address] Care Team Providers Care Barrel Washer Machine Name Role Phone Vanita Dunn MD Primary Care Provid er Reason for Visit * Reason Comments [facility]: Telehealth Encounter Details Date Type Department Care Team Description 06/21/2022 Telemedicine [facility], [facility] [address] [facility] [place] [address] Aleyda Campos PA-C [address] [place] [address] Kaylee Barakat, Community Health Vibrator Operator [address] [place] [address] Viral upper respiratory tract infection*; Chronic diastolic (congestive) heart failure (HCC); Secondary esophageal varices without bleeding (HCC); HTN, goal below 130/80; Hypertensive heart disease with chronic diastolic congestive heart failure (HCC); Iron deficiency anemia due to chronic blood loss; Restrictive lung disease; NG (nonalcoholic steatohepatitis); Acquired hypothyroidism; Type 2 diabetes mellitus with hemoglobin A1c goal of less than 8.0% (HCC); Recurrent major depressive disorder, in partial remission (HCC); Constipation, unspecified constipation type 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 documented as of this encounter (statuses as of 06/22/2022) Medications Medication Sig Dispensed Refills Start Date End Date Status nystatin (NYSTOP) 146797 UNIT/GM powder Apply topically to affected area 3 times a day. 60 g 1 10/16/2019 Active Dexcom G6 Safety And Health Manager Device Use as directed. To test blood sugars 4 times a day Dx E11.9 1 Each 0 09/14/2020 Active Dexcom G6 Transmitter Use as directed. To test blood sugars 4 times a day. Change every 90 days. Dx E11.9 1 Each 3 09/14/2020 Active OneTouch Verio In Vitro Strip (Glucose Blood) TESTING once daily 100 Strip 3 10/29/2020 Active OneTouch Delica Plus [id number] TESTING once daily 100 Each 3 10/29/2020 [...] a prison plan is made -continue lexapro Impaired mobility [...] pain 01/24/2012 01/17/2017 Genetic Sleep Disorder Research Other*[id number] 05/13/2011 04/07/2016 Obstructive sleep apnea 01/18/2011 12/27/19 [...] Progress Notes * Aleyda Campos PA-C - 06/21/2022 12:25 PM EDT Images from the original note were not included. [facility] Problem Oriented Charting Provider Visit Date: 06/21/2022 Time: 12:25 PM [facility] Sub-Program: Focused Care Management (3-9 months) Assessment and Plan Viral upper respiratory tract infection - XR Chest 2 Views - RespiratoryPathogen Panel,PCR; Future Chronic diastolic (congestive) heart failure (HCC) Assessment & Plan: No SOB. Has had diarrhea -continue spironolactone, KCl, lasix Secondary esophageal varices without bleeding (HCC) Assessment & Plan: Continue pantoprazole and Nadolol HTN, goal below 130/80 Assessment & Plan: BP on the low side, but stable -continue isosorbide Hypertensive heart disease with chronic diastolic congestive heart failure (HCC) Iron deficiency anemia due to chronic blood loss Assessment & Plan: Last hgb 10.7 06/02 -stable Restrictive lung disease Assessment & Plan: O2 stable -continue symbicort, albuterol NG (nonalcoholic steatohepatitis) Assessment & Plan: Noncompliant with lactuose Acquired hypothyroidism Assessment & Plan: TSH low during last admission. T4 WNL. Synthroid reduced. Recheck in 6 weeks Type 2 diabetes mellitus with hemoglobin A1c goal of less than 8.0% ([facility]) Assessment & Plan: Last hgba1c 7.4. BS high likely due to URI and stress -continue trulicity, metformin, novolog and lantus Recurrent major depressive disorder, in partial remission ([facility]) Assessment & Plan: Seems very depressed about current situation. 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 if a intermediate designer plan is made -continue lexapro Constipation, unspecified constipation type Additional Medical Decision Making: Shaina continues to struggle with constipation and abd pain at home. She is reluctant to take lactulose at home because she does not want to make a mess. She is requesting to go to the ER so they can "clean her out." She had an er visit on 06/17 for same problem-w/u neg. Sent home. Had a lengthy discussion with pt, and caregiver, that lactulose is not an optional med. Pt understands, but is still reluctant to take. and cg willing and able to help, but she feels bad. She will likely need higher level of care if this care, which was discussed. Also discussed inappropriate use of ED and admission to hospital. Pt, and cg voice understanding and will discuss intermediate designer plan. Will continue to follow Follow Up: Return in about 1 week (around 06/28/2022) for home. | For: home Scheduled appointments in the next 60 days: Future Appointments-next 60 days Date/Time Provider Specialty Dept Phone 06/24/2022 1:20 PM Love Farncisco, DO Sleep Disorders [phone] 06/28/2022 2:30 PM [facility] [phone] 07/05/2022 12:00 PM Kaylee Barakat, [facility] Vibrator Operator [facility] [phone] 07/05/2022 6:10 PM [facility] Pharmacist2 Pharmacy [phone] 07/06/2022 1:30 PM Chair [address] [facility] Hematology Oncology [phone] 08/23/2022 2:00 PM (Arrive by 1:45 PM) Alberta Duque PA-C Endocrinology [phone] 08/30/2022 1:30 PM (Arrive by 1:15 PM) ZAK Bolton Gastroenterology [phone] 09/01/2022 1:30 PM (Arrive by 1:15 PM) Concetta Khan MD Gynecology Obstetrics [phone] 09/14/2022 2:30 PM [facility] Pulmonary Function [phone] 09/28/2022 3:20 PM (Arrive by 3:05 PM) Reynaldo Marquez MD Pulmonary [phone] 10/26/2022 1:15 PM (Arrive by 1:00 PM) Tono Sanchez MD Hematology Oncology [phone] A total of 60 minutes was spent face to face (via video-based telemedicine if designated as a telemedicine visit) Subjective Subjective Is this a Telemedicine Visit? Yes, Patient location: HOME. I was not in a hospital or clinic location. After connecting through televideo, patient was verified with two unique identifiers. Patient (or authorized legal retail account representative) was then informed that this was a Telemedicine visit and being conducted confidentially over secure lines. Methods to assure confidentiality were taken. Patient acknowledged consent and understanding of privacy and security of the Telemedicine visit. The patient agreed to participate. Reason For [facility] Visit: Follow-Up Current Concerns: Shaina Bustos is a 67 year old female seen today for a [facility] provider visit. Today's concerns: -abd pain, constipation then diarrhea. Pt not taking lactulose as prescribed. Refuses to take as she "makes a mess" every time she has BM. CG and encouraging, will and able to help. Pt still reluctant. Had diarrhea for a few days. Stopped yesterday. Had more solid BM today. Only took 3 doses of lactulose yesterday per pt. Asking to go to ER. Informed her this is inappropriate. She understands. Will think about prison plan for future prior to next visit. -Started with cough, congestion and sore throat yesterday. No fever. No know sick contacts. Of note, tested + for COVID in april. Denies SOB. Will get respiratory panel today. Added CXR to [facility] tomorrow -Blood sugars have been running high-?stress and possible URI. Hgba1c 7.4 06/02. Will continue to monitor Additional Review of Systems All other systems reviewed and are negative. Objective Objective There were no vitals filed for this visit. Last Weights: Wt Readings from Last 3 Encounters: 05/31/22 113.4 kg (250 lb) 03/03/22 113.4 kg (250 lb) 02/14/22 113.4 kg (250 lb) Last BPs: BP Readings from Last 4 Encounters: 06/18/22 140/64 06/14/22 123/79 06/13/22 122/66 06/10/22 126/70 Physical Exam Constitutional: Appearance: She is obese. HENT: Head: Normocephalic. Eyes: Extraocular Movements: Extraocular movements intact. Cardiovascular: Rate and Rhythm: Normal rate and regular rhythm. Heart sounds: No murmur heard. Pulmonary: Comments: Few crackles at L base. No wheezing Abdominal: General: Bowel sounds are normal. Neurological: Mental Status: She is alert and oriented to person, place, and time. Mental status is at baseline. Psychiatric: Comments: Tearful, frustrated. Lab Review: I have reviewed the following results: BMP results Recent Labs Units 05/19/22 1449 12/20/21 1448 12/18/21 0000 09/23/21 1724 SODIUM - [facility] mmol/L 143 138 -- 143 POTASSIUM - [facility] mmol/L 4.0 4.3 -- 3.8 POTASSIUM-OUTSIDE LAB MMOL/L -- -- 4.3 -- CHLORIDE - [facility] mmol/L 111* 103 -- 106 CO2 - [facility] mmol/L 23 26 -- 27 CREATININE - [facility] mg/dL 0.8 0.7 -- 0.8 CREATININE-OUTSIDE LAB MG/DL -- -- 0.72 -- BUN - [facility] mg/dL 18 13 -- 12 CBC results Recent Labs Units 06/14/22 1434 05/19/22 1451 04/20/22 1437 WBC AUTO - [facility] K/uL 2.70* 3.67* 3.71* HGB - [facility] g/dL 8.7* 10.4* 11.2* HCT - [facility] % 27.5* 32.0* 34.3* PLATELET AUTO - [facility] K/uL 58* 84* 72* HbA1c results Recent Labs Units 05/19/22 1449 01/24/22 0834 08/19/21 1619 HEMOGLOBIN A1C - [facility] % 7.4* 6.9* 7.1* Hepatic panel results Recent Labs Units 04/28/22 1421 12/20/21 1448 09/23/21 1724 PROTEIN - [facility] g/dL 6.5 6.7 6.3 BILIRUBIN, TOTAL - [facility] mg/dL 1.4* 1.2 1.4* ALKALINE PHOSPHATASE - [facility] U/L 127 112 134* AST - [facility] U/L 51* 41* 57* ALT - [facility] U/L 30 25 49* Medication Review "Bottles Out" medication review not performed today due to time constraints with medication list reviewed and updated in the EMR as appropriate ACP: Not performed. Time constraints due to other discussions about acute issues. Aleyda Campos PA-C 12:25 PM *Communication sent to PCP (via autofax if [facility]), [facility] Care Team members,relevant Specialty Care Physicians* documented in this encounter Miscellaneous Notes * Assessment & Plan Note - Aleyda Campos PA-C - 06/22/2022 7:35 AM EDT Associated Problem(s): Recurrent major depressive disorder, in partial remission (HCC) Seems very depressed about current situation. 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 if a intermediate designer plan is made -continue lexapro * Assessment & Plan Note - Aleyda Campos PA-C - 06/22/2022 7:33 AM EDT Associated Problem(s): Type 2 diabetes mellitus with hemoglobin A1c goal of less than 8.0% (HCC) Last hgba1c 7.4. BS high likely due to URI and stress -continue trulicity, metformin, novolog and lantus * Assessment & Plan Note - Aleyda Campos PA-C - 06/22/2022 7:33 AM EDT Associated Problem(s): Acquired hypothyroidism TSH low during last admission. T4 WNL. Synthroid reduced. Recheck in 6 weeks * Assessment & Plan Note - Aleyda Campos PA-C - 06/22/2022 7:32 AM EDT Associated Problem(s): NG (nonalcoholic steatohepatitis) Noncompliant with lactuose * Assessment & Plan Note - Aleyda Campos PA-C - 06/22/2022 7:32 AM EDT Associated Problem(s): Restrictive lung disease O2 stable -continue symbicort, albuterol * Assessment & Plan Note - Aleyda Campos PA-C - 06/22/2022 7:31 AM EDT Associated Problem(s): Iron deficiency anemia due to chronic blood loss Last hgb 10.7 06/02 -stable * Assessment & Plan Note - Aleyda Campos PA-C - 06/22/2022 7:13 AM EDT Associated Problem(s): HTN, goal below 130/80 BP on the low side, but stable -continue isosorbide * Assessment & Plan Note - Aleyda Campos PA-C - 06/22/2022 7:13 AM EDT Associated Problem(s): Esophageal varices (HCC) Continue pantoprazole and Nadolol * Assessment & Plan Note - Aleyda Campos PA-C - 06/22/2022 7:11 AM EDT Associated Problem(s): Chronic diastolic (congestive) heart failure (HCC) No SOB. Has had diarrhea -continue spironolactone, KCl, lasix documented in this encounter Plan of Treatment Upcoming Encounters Date Type Specialty Care Team Description 06/24/2022 Office Visit Sleep Disorders Love Francisco, [address] [facility] [place] [address] 06/28/2022 Home Visit [facility] July Poe, RN [address] [facility] [place] [address] 07/05/2022 Home Visit Family Medicine Kaylee Barakat, Community Health Vibrator Operator [address] [place] [address] 07/05/2022 Pharmacy Pharmacy Pharmacist2, [facility] [address] [facility] [address] [place] [address] 07/06/2022 Hem/Onc Treatment Hematology Oncology Park, Chair 7 Hem Onc Scenery [address] [facility] [place] [address] 08/23/2022 Office Visit Endocrinology Alberta Duque PA-C [address] [place] [address] 08/30/2022 Office Visit Gastroenterology Lyssa Stout CRNP [address] [place] [address] 09/01/2022 Office Visit Gynecology Obstetrics Concetta Khan MD [address] [facility] [place] [id number] 09/14/2022 PulmDiagnostic Pulmonary Function West, Pft 132 [facility] [place] [address] 09/28/2022 Office Visit Pulmonary Reynaldo Marquez MD [address] [facility] [place] [id number] 10/26/2022 Office Visit Hematology Oncology Tono Sanchez MD [address] [place] [address] Scheduled Orders Name Type Priority Associated Diagnoses Orde r Schedule XR CHEST 2 VIEWS Medical Imaging Routine Viral upper respiratory tract infection Ordered: 06/21/2022 Scheduled Procedures Name Priority Associated Diagnoses Date/Ti [...] of this encounter Implants Implanted Type Area Barber Tool Sharpener Device Identifier Shelf Expiration Date Model / Serial / Lot Microtech Sure Clip Implanted:Qty: 2 on 06/03/2020 by Janis Hatch DO at OR [facility] Clip N/A: Colon 04/21/2022 [facility]-F-26-2 35-C-R / / [id number] documented as of this encounter Results * RESPIRATORY PATHOGEN PANEL, PCR (06/21/2022 1:59 PM EDT) Adenovirus by PCR Negative Negative [facility] Coronavirus 229E by PCR Negative Negative [facility] Coronavirus HKU1 by PCR Negative Negative [facility] Coronavirus NL63 by PCR Negative Negative [facility] Coronavirus OC43 by PCR Negative Negative [facility] Coronavirus SARS-CoV-2 by PCR Negative Negative [facility] Human Metapneumovirus by PCR Negative Negative [facility] Rhinovirus/Enterovirus by PCR Negative Negative [facility] Influenza A Virus by PCR Negative Negative [facility] Influenza B Virus by PCR Negative Negative [facility] Parainfluenza Virus 1 by PCR Negative Negative [facility] Parainfluenza Virus 2 by PCR Negative Negative [facility] Parainfluenza Virus 3 by PCR Negative Negative [facility] Parainfluenza Virus 4 by PCR Negative Negative [facility] Respiratory Syncytial Virus by PCR Negative Negative [facility] Bordetella pertussis by PCR Negative Negative [facility] Chlamydia pneumoniae by PCR Negative Negative [facility] Mycoplasma pneumoniae by PCR Negative Negative [facility] Bordetella parapertussis by PCR Negative Comment: The primers that detect Rhinovirus may cross react with some Enterorviruses. The validation of bronchial specimens, tracheal aspirates, and throats for this assay was developed and performance characteristics determined by [employer]. The validation of alternate specimen types has not been cleared or approved by the U.S. Food and Drug Administration (FDA). It has been determined that such clearance or approval is not necessary. Negative [facility] Specimen Upper Respiratory - Nasophar yngeal swab (specimen) [facility] [address] [place] [address] documented in this encounter Visit Diagnoses Diagnosis Viral upper respiratory tract infection- Primary Acute upper respiratory infections of unspecified site Chronic diastolic (congestive) heart failure (HCC) Secondary esophageal varices without bleeding (HCC) Esophageal varices without mention of bleeding in diseases classified elsewhere HTN, goal below 130/80 Unspecified essential hypertension Hypertensive heart disease with chronic diastolic congestive heart failure (HCC) 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 (chronic) Restrictive lung disease Other diseases of lung, not elsewhere classified NG (nonalcoholic steatohepatitis) Other chronic nonalcoholic liver disease Acquired hypothyroidism Unspecified hypothyroidism Type 2 diabetes mellitus with hemoglobin A1c goal of less than 8.0% (HCC) Recurrent major depressive disorder, in partial remission (HCC) Constipation, unspecified constipation type documented in this encounter Advance Directives Documents on File Type Date Recorded Patient Hospital Educator 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 WILL AND HEALTH CARE POA Power of Feedmobile Driver 04/29/2021 12:00 AM TOM R OF CDL BULK DRIVER HEALTH CARE POA Advanced Directive 04/01/2021 1:14 [...] Agents on File Name Relationship Healthcare Agent [facility] p Communication Syed Bustos Spouse Emergency Contact Care Teams Barrel Washer Machine Relationship Specialty Start Date End Date Vanita Dunn MD [address] [place] [address] PCP - General Family Medicine 03/16/21 documented as of this encounter
--- OUTSIDE RECORDS SUMMARY | 2023-05-10 18:04 | External Medical Summary | Summary of Care ---
Author Name Unknown Organization [facility] [place] [address] Care Team Providers Care Formula Clerk Name Role Phone Vanita Dunn MD Primary Care Provid er Reason for Visit * Reason Onset Date Comments [facility]: Maintenance 06/19/2022 Encounter Details Date Type Department Care Team Description 06/19/2022 Scheduled Telephone [facility], [facility] [address] [facility] [place] [address] [facility], Nurse [facility] [address] [facility] [place] [address] 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 documented as of this encounter (statuses as of 06/19/2022) Medications Medication Sig Dispensed Refills Start Date End Date Status nystatin (NYSTOP) 134544 UNIT/GM powder Apply topically to affected area 3 times a day. 60 g 1 10/16/2019 Active Dexcom G6 Realtime Reporter Device Use as directed. To test blood sugars 4 times a day Dx E11.9 1 Each 0 09/14/2020 Active Dexcom G6 Transmitter Use as directed. To test blood sugars 4 times a day. Change every 90 days. Dx E11.9 1 Each 3 09/14/2020 Active OneTouch Verio In Vitro Strip (Glucose Blood) TESTING once daily 100 Strip 3 10/29/2020 Active OneTouch Delica Plus [id number] TESTING once daily 100 Each 3 10/29/2020 [...] as of this encounter (statuses as of 06/19/2022) Active Problems Problem Noted Date Hypertensive heart [...] as of this encounter (statuses as of 06/19/2022) Resolved Problems Problem Noted Date Resolved Date [...] pain 01/24/2012 01/17/2017 Genetic Sleep Disorder Research Other*[id number] 05/13/2011 04/07/2016 Obstructive sleep apnea 01/18/2011 12/27/19 [...] as of this encounter (statuses as of 06/19/2022) Immunizations Name Administration Dates Next Due COVID-19 [...] Telephone Encounter - July Poe RN - 06/19/2022 8:09 AM EDT Telephone call to pt to f/u on constipation Had HV yesterday and Dulcolax suppository was administered. Spoke with and he reports she had a good sized bowel movement after the suppository and then another small one later in the night. No HV to give fleets enema warranted at the time, but advised them to call later today if no bowel movement. Reinforced bowel regimen of 45ml Lactulose 4x a day, Miralax daily, Linzess, and they verbalize understanding and report that she will take all meds as ordered. Advised to call [facility] if no bowel movement again today. Reinforced again that if pt does not have bowel movement in 24 hours, please call and notify [facility]. documented in this encounter Plan of Treatment Upcoming Encounters Date Type Specialty Care Team Description 06/21/2022 Telemedicine [facility] Aleyda Campos PA-C [address] [facility] [place] [address] Kaylee Barakat, Community Health Maint Mechanic [address] [place] [address] 06/24/2022 Office Visit Sleep Disorders Love Francisco DO [address] [facility] [place] [address] 06/28/2022 Home Visit [facility] July Poe RN [address] [facility] [place] [address] 07/05/2022 Home Visit Family Medicine Kaylee Barakat, Community Health Maint Mechanic [address] [place] [address] 07/05/2022 Pharmacy Pharmacy Pharmacist2, [facility] [address] [facility] [place] [address] 07/06/2022 Hem/Onc Treatment Hematology Oncology Park, Chair 7 Hem Onc Scenery [address] [place] [address] 08/23/2022 Office Visit Endocrinology Alberta Duque PA-C [address] [place] [address] 08/30/2022 Office Visit Gastroenterology Lyssa Stout CRNP [address] [facility] [place] [address] 09/01/2022 Office Visit Gynecology Obstetrics Concetta Khan MD [address] [facility] [place] [address] 09/14/2022 PulmDiagnostic Pulmonary Function West, Pft [address] [facility] [place] [address] 09/28/2022 Office Visit Pulmonary Reynaldo Marquez MD [address] [place], [place] [id number] 10/26/2022 Office Visit Hematology Oncology Tono Sanchez MD [address] [place] [address] Scheduled Procedures Name Priority Associated Diagnoses Date/Ti [...] of this encounter Implants Implanted Type Area Visitor Information Assistant Device Identifier Shelf Expiration Date Model / Serial / Lot Microtech Sure Clip Implanted:Qty: 2 on 06/03/2020 by Janis Hatch DO at OR [facility] Clip N/A: Colon 04/21/2022 [facility]-F-26-2 35-C-R / / [id number] documented as of this encounter Advance Directives Documents on File Type Date Recorded Patient Color Buffer 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 WILL AND HEALTH CARE POA Power of Powersaw Supervisor 04/29/2021 12:00 AM TOM R OF FOOD PREPARER HEALTH CARE POA Advanced Directive 04/01/2021 1:14 [...] Syed Bustos Spouse Emergency Contact Care Teams Formula Clerk Relationship Specialty Start Date End Date Vanita Dunn MD [address] [place] [address] PCP - General Family Medicine 03/16/21 documented as of this encounter
--- OUTSIDE RECORDS SUMMARY | 2023-05-10 18:04 | External Medical Summary | Summary of Care ---
Author Name Unknown Organization [facility] [place] [address] Care Team Providers Care Bullet Slug Casting Machine Operator Name Role Phone Vanita Dunn MD Primary Care Provid er Encounter Details Date Type Department Care Team Description 06/17/2022 Scan Encounter [facility] [address] [place] [address] Vanita Dunn MD [address] [place] [address] <No scans attached> 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 documented as of this encounter (statuses as of 06/20/2022) Medications Medication Sig Dispensed Refills Start Date End Date Status nystatin (NYSTOP) 129907 UNIT/GM powder Apply topically to affected area 3 times a day. 60 g 1 10/16/2019 Active Dexcom G6 Business Analytics Faculty Member Device Use as directed. To test blood sugars 4 times a day Dx E11.9 1 Each 0 09/14/2020 Active Dexcom G6 Transmitter Use as directed. To test blood sugars 4 times a day. Change every 90 days. Dx E11.9 1 Each 3 09/14/2020 Active OneTouch Verio In Vitro Strip (Glucose Blood) TESTING once daily 100 Strip 3 10/29/2020 Active OneTouch Delica Plus [id number] TESTING once daily 100 Each 3 10/29/2020 [...] as of this encounter (statuses as of 06/20/2022) Active Problems Problem Noted Date Hypertensive heart [...] as of this encounter (statuses as of 06/20/2022) Resolved Problems Problem Noted Date Resolved Date [...] pain 01/24/2012 01/17/2017 Genetic Sleep Disorder Research Other*[id number] 05/13/2011 04/07/2016 Obstructive sleep apnea 01/18/2011 12/27/19 [...] as of this encounter (statuses as of 06/20/2022) Immunizations Name Administration Dates Next Due COVID-19 [...] Care Team Description 06/21/2022 Telemedicine [facility] Aleyda Campos PA-C [address] [place] [address] Kaylee Barakat, Community [facility] Quarry Boss [address], [place] [id number] 06/24/2022 Office Visit Sleep Disorders Lvoe Francisco DO 132 [facility] [place] [address] 06/28/2022 Home Visit [facility] July Poe, RN 132 [facility] [place] [address] 07/05/2022 Home Visit Family Medicine Kaylee Barakat, Community [facility] [employer]arry Boss [address] [place] [address] 07/05/2022 Pharmacy Pharmacy Pharmacist2, [facility] Sp 200 [place] [address] 07/06/2022 Hem/Onc Treatment Hematology Oncology [place], Chair 7 Hem Onc [facility] 200 [place] [address] 08/23/2022 Office Visit Endocrinology Alberta Duque PA-C [address], [place] [phone] 08/30/2022 Office Visit Gastroenterology Lyssa Stout CRNP 132 [facility] [place] [address] 09/01/2022 Office Visit Gynecology Obstetrics Concetta Khan MD [address] [facility] [place] [phone] 09/14/2022 PulmDiagnostic Pulmonary Function West, Pft [address] [place] [address] 09/28/2022 Office Visit Pulmonary Reynaldo Marquez MD [address] [place] [address] 10/26/2022 Office Visit Hematology Oncology Tono Sanchze MD [address] [place] [address] Scheduled Procedures Name Priority Associated Diagnoses Date/Ti [...] of this encounter Implants Implanted Type Area Inspector Chief Device Identifier Shelf Expiration Date Model / Serial / Lot Microtech Sure Clip Implanted:Qty: 2 on 06/03/2020 by Janis Hatch DO at OR H Clip N/A: Colon 04/21/2022 [facility]-F-26-2 35-C-R / / [id number] documented as of this encounter Advance Directives Documents on File Type Date Recorded Patient Space Operations Officer 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 WILL AND HEALTH CARE POA Power of Software Solutions Architect 04/29/2021 12:00 AM TOM R OF INDUSTRIAL HEALTH ENGINEER HEALTH CARE POA Advanced Directive 04/01/2021 1:14 [...] Syed Bustos Spouse Emergency Contact Care Teams Bullet Slug Casting Machine Operator Relationship Specialty Start Date End Date Vanita Dunn MD [address], [place] [phone] PCP - General Family Medicine 03/16/21 documented as of this encounter
--- OUTSIDE RECORDS SUMMARY | 2023-05-10 18:04 | External Medical Summary ---
Author Name Unknown Address Unknown Organization K01:[facility] [address] [facility] [place] [address] Laboratory Report Ordering Provider Test Date Status LITA ALBERTO 06/21/2022 13:59:28 Final Observation Date Value Abnormality Reference (Units ) Status Adenovirus DNA [Presence] in Nasopharynx by JANY with non-probe detection 06/21/2022 13:59:28 Negative Negative Final Human coronavirus 229E RNA [Presence] in Nasopharynx by JANY with non-probe detection 06/21/2022 13:59:28 Negative Negative Final Human coronavirus HKU1 RNA [Presence] in Nasopharynx by JANY with non-probe detection 06/21/2022 13:59:28 Negative Negative Final Human coronavirus NL63 RNA [Presence] in Nasopharynx by JANY with non-probe detection 06/21/2022 13:59:28 Negative Negative Final Human coronavirus OC43 RNA [Presence] in Nasopharynx by JANY with non-probe detection 06/21/2022 13:59:28 Negative Negative Final SARS-CoV-2 (COVID-19) RNA [Presence] in Nasopharynx by JANY with non-probe detection 06/21/2022 13:59:28 Negative Negative Final Human metapneumovirus RNA [Presence] in Nasopharynx by JANY with non-probe detection 06/21/2022 13:59:28 Negative Negative Final Rhinovirus+Enterovirus RNA [Presence] in Nasopharynx by JANY with non-probe detection 06/21/2022 13:59:28 Negative Negative Final Influenza virus A RNA [Presence] in Nasopharynx by JANY with non-probe detection 06/21/2022 13:59:28 Negative Negative Final Influenza virus B RNA [Presence] in Nasopharynx by JANY with non-probe detection 06/21/2022 13:59:28 Negative Negative Final Parainfluenza virus 1 RNA [Presence] in Nasopharynx by JANY with non-probe detection 06/21/2022 13:59:28 Negative Negative Final Parainfluenza virus 2 RNA [Presence] in Nasopharynx by JANY with non-probe detection 06/21/2022 13:59:28 Negative Negative Final Parainfluenza virus 3 RNA [Presence] in Nasopharynx by JANY with non-probe detection 06/21/2022 13:59:28 Negative Negative Final Parainfluenza virus 4 RNA [Presence] in Nasopharynx by JANY with non-probe detection 06/21/2022 13:59:28 Negative Negative Final Respiratory syncytial virus RNA [Presence] in Nasopharynx by JANY with non-probe detection 06/21/2022 13:59:28 Negative Negative Final Bordetella pertussis.pertussis toxin promoter region [Presence] in Nasopharynx by JANY with non-probe detection 06/21/2022 13:59:28 Negative Negative Final Chlamydophila pneumoniae DNA [Presence] in Nasopharynx by JANY with non-probe detection 06/21/2022 13:59:28 Negative Negative Final Mycoplasma pneumoniae DNA [Presence] in Nasopharynx by JANY with non-probe detection 06/21/2022 13:59:28 Negative Negative Final Bordetella parapertussis WA0119 DNA [Presence] in Nasopharynx by JANY with non-probe detection 06/21/2022 13:59:28 Negative Negative Final Performing Location [facility] - [address] [facility] [address]
--- OUTSIDE RECORDS SUMMARY | 2023-05-10 18:05 | External Medical Summary | Summary of Care ---
Author Name Unknown Organization [place] [address] Care Team Providers Care Information Systems Technician Name Role Phone Vanita Dunn MD Primary Care Provid er Reason for Visit * Reason Comments [facility]: Acute Encounter Details Date Type Department Care Team Description 06/18/2022 Home Visit [facility], [facility] 132 [place] [address] [facility], Nurse [facility] 132 [place] [address] 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 documented as of this encounter (statuses as of 06/18/2022) Medications Medication Sig Dispensed Refills Start Date End Date Status nystatin (NYSTOP) 529422 UNIT/GM powder Apply topically to affected area 3 times a day. 60 g 1 10/16/2019 Active Dexcom G6 Student Services Representative Device Use as directed. To [...] Strip 3 10/29/2020 Active OneTouch Delica Plus Skdoco41S TESTING once daily 100 Each 3 10/29/2020 [...] as of this encounter (statuses as of 06/18/2022) Active Problems Problem Noted Date Hypertensive heart [...] as of this encounter (statuses as of 06/18/2022) Resolved Problems Problem Noted Date Resolved Date [...] pain 01/24/2012 01/17/2017 Genetic Sleep Disorder Research Other*[id number] 05/13/2011 04/07/2016 Obstructive sleep apnea 01/18/2011 12/27/19 [...] as of this encounter (statuses as of 06/18/2022) Immunizations Name Administration Dates Next Due COVID-19 [...] Sign Reading Time Taken Comments Blood Pressure 140/64 06/18/2022 12:37 PM EDT Pulse 72 06/18/2022 12:37 PM EDT Temperature 36 C (96.8 F) 06/18/2022 12:37 PM EDT Respiratory Rate 18 06/18/2022 12:37 PM EDT Oxygen Saturation 93% 06/18/2022 12:37 PM EDT Inhaled Oxygen Concentration - - [...] Progress Notes * July Poe RN - 06/18/2022 12:36 PM EDT [facility] Man[employer]itten Sewer Visit Date: 06/18/2022 Time: 12:41 PM Name: Shaina uBstos : 1955 Current Concerns: Pt seen for constipation Went to ED last pm and per her and "nothing wrong" Although they report pt still has not had a good sized bowel movement in 4 days Stressed again that they should be calling [facility] if no BM in 24 hours Pt is denying any pain at this time - states she had pain yesterday but none today Abdomen is at baseline, soft, + bowel sounds all 4 quadrants reports he has not given any Lactulose yet today Stressed again that they cannot be skipping doses - she needs to get at least 45 ml 3x and day, do 4x a day if no BM - also do Miralax daily states " I wanted to see if this other stuff worked first" - advised him that she still needs the lactulose for her cirrhosis and to keep her from getting confused - he says "ok I know" Dulcolax suppository given today Will f/u tomorrow and if now bm will do enema Problems/Symptoms: Review of Systems Gastrointestinal: Positive for constipation. Physical Exam: BP 140/64 | Pulse 72 | Temp 36 C (96.8 F) | Resp 18 | SpO2 93% Pain 0 Physical Exam Abdominal: General: Bowel sounds are normal. There is distension (baseline). Palpations: Abdomen is soft. Tenderness: There is no abdominal tenderness. [facility]-10 Completed this Visit: Yes. [facility]-10: Reason Completed: Status post ED visit/hospital admission [facility]-10 Interventions: Fall education provided, reviewed/provided Fall brochure Treatment/Plan: Dulcolax suppository given Be sure to give 45ml Lactulose 3-4x a day Miralax daily if no BM Notify [facility] if no BM in 24 hrs Home Interventions Provided: Home Intervention: Other; Eval, Suppository administered Reinforced current Plan of Care, including self-management and medication regimen Patient's 'Red Flags': 1. Change in mental status 2. lethargy 3. No bm in 24 hrs Patient Needs to Remember: Call [facility] at with any new or worsening health concerns or problems, red flag symptoms. Referrals Needed: Other none Follow Up: Is there cellular connectivity/connectivity in the home? Yes Does the patient have internet in the home? No Patient encouraged to call the intake phone number for all urgent but not emergent issues. Scheduled to follow up with patient in 24 hr. July Poe RN 06/18/2022 12:41 PM documented in this encounter Plan of Treatment Upcoming Encounters Date Type Specialty Care Team Description 06/19/2022 Scheduled Telephone [facility], Nurse [facility] [address] [place] [address] 06/21/2022 Telemedicine [facility] Aleyda Campos PA-C [address] [place] [address] Kaylee Barakat, Community [facility] Lathe Sander [address] [place] [address] 06/24/2022 Office Visit Sleep Disorders Love Francisco DO [address] [place] [address] 06/28/2022 Home Visit [facility] July Poe RN [address] [place] [address] 07/05/2022 Home Visit Family Medicine Kaylee Barakat, [facility] Lathe Sander [address] [place] [address] 07/05/2022 Pharmacy Pharmacy Pharmacist, [address] [address] 07/06/2022 Hem/Onc Treatment Hematology Oncology [place], Chair 7 Hem On[address] [address] 08/23/2022 Office Visit Endocrinology Alberta Duque PA-C [address] [place] [address] 08/30/2022 Office Visit Gastroenterology Lyssa Stout CRNP [address] [place] [address] 09/01/2022 Office Visit Gynecology Obstetrics Concetta Khan MD [address] [place], [place] [phone] 09/14/2022 PulmDiagnostic Pulmonary Function West, Pft [address] [place] [address] 09/28/2022 Office Visit Pulmonary Reynaldo Marquez MD [address] [place] [phone] 10/26/2022 Office Visit Hematology Oncology Tono Sanchez MD 200 [place] [address] Scheduled Procedures Name Priority Associated Diagnoses Date/Ti [...] of this encounter Implants Implanted Type Area Science Manager Device Identifier Shelf Expiration Date Model / Serial / Lot Microtech Sure Clip Implanted:Qty: 2 on 06/03/2020 by Janis Hatch DO at OR [facility] Clip N/A: Colon 04/21/2022 [facility]-F-26-2 35-C-R / / [id number] documented as of this encounter Advance Directives Documents on File Type Date Recorded Patient Surgeon Partner 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 WILL AND HEALTH CARE POA Power of Planer Off Bearer 04/29/2021 12:00 AM TOM R OF INFORMATION TECHNOLOGY DIRECTOR HEALTH CARE POA Advanced Directive 04/01/2021 1:14 [...] Syed Bustos Spouse Emergency Contact Care Teams Information Systems Technician Relationship Specialty Start Date End Date Vanita Dunn MD [address] [place] [address] PCP - General Family Medicine 03/16/21 documented as of this encounter
--- OUTSIDE RECORDS SUMMARY | 2023-05-10 18:05 | External Medical Summary | Summary of Care ---
Author Name Unknown Organization [facility] Address [facility] [place] [address] Care Team Providers Care Director Clinical Pharmacology Name Role Phone Vanita Dunn MD Primary Care Provid er Reason for Visit * Reason Onset Date Comments [facility]: Acute 06/17/2022 Encounter Details Date Type Department Care Team Description 06/17/2022 Telephone [facility], [facility] [address] [facility] [place] [address] [facility], Nurse [address] [place] [address] [facility]: Acute 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 documented as of this encounter (statuses as of 06/17/2022) Medications Medication Sig Dispensed Refills Start Date End Date Status nystatin (NYSTOP) 010718 UNIT/GM powder Apply topically to affected area 3 times a day. 60 g 1 10/16/2019 Active Dexcom G6 Linen Grader Device Use as directed. To test blood sugars 4 times a day Dx E11.9 1 Each 0 09/14/2020 Active Dexcom G6 Transmitter Use as directed. To test blood sugars 4 times a day. Change every 90 days. Dx E11.9 1 Each 3 09/14/2020 Active OneTouch Verio In Vitro Strip (Glucose Blood) TESTING once daily 100 Strip 3 10/29/2020 Active OneTouch Delica Plus [id number] TESTING once daily 100 Each 3 10/29/2020 [...] as of this encounter (statuses as of 06/17/2022) Active Problems Problem Noted Date Hypertensive heart [...] as of this encounter (statuses as of 06/17/2022) Resolved Problems Problem Noted Date Resolved Date [...] pain 01/24/2012 01/17/2017 Genetic Sleep Disorder Research Other*[id number] 05/13/2011 04/07/2016 Obstructive sleep apnea 01/18/2011 12/27/19 [...] as of this encounter (statuses as of 06/17/2022) Immunizations Name Administration Dates Next Due COVID-19 [...] encounter Miscellaneous Notes * Telephone Encounter - Va Carney RN - 06/17/2022 5:07 PM EDT Received order from [facility]. Notified RNCM reiki practitioner July Poe that pt is scheduled for an acute HV for tomorrow per Dr Khoury. KUB scheduled with [employer] [place] Faxed order to [employer]. Claim #[id number] Phone call to pt's spouse to notify him that xray was ordered and RN will make a visit tomorrow. Advised to buy dulcolax suppository and fleet enema and either give it to the pt thad or at least have it in the house for the Nurse tomorrow. Va ANTOINE, RN [facility] Intake Triage Coordinator [phone] * Addendum Note - Ashleigh Khoury DO - 06/17/2022 4:55 PM EDT Addended by: ASHLEIGH KHOURY on: 06/17/2022 04:55 PM Modules accepted: Orders * Telephone Encounter - Ashleigh Khoury DO - 06/17/2022 4:54 PM EDT Do we have availability for a visit tomorrow? KUB ordered to evaluate, should have clinical evaluation of the abdomen as well. Please fax for mobile imaging. * Telephone Encounter - Va Carney RN - 06/17/2022 4:27 PM EDT [facility] cashier Acute Call Date: 06/17/2022 Time: 4:28 PM Name: Shaina Bustos : 1955 Caller: Gilma Relationship to pt- caregiver No chief complaint on file. HPI: Shaina Bustos is a 67 year old female whose caregiver Gilma is calling [facility] Intake [facility] pt has had no BM since Monday06/14/22. Pt's family wanted her to call [facility] instead of takingthe pt to the ED. Nursing Assessment: Patient's chief complaint for this call: No BM since 06/14/22 which was small and watery. Caregiver has been giving pt all of the medications for constipation: Lactulose, Miralax, gave pt 3Dulcolax tabs this am. Gilma states that the pt's abdomen is "full", "real hard". She is asking if a RN can see the pt tonight or tomorrow to assist to give pt a laxative or an enema? Advised the nurses are off at 5pm. Pain unknown Baseline Assessment Able to performing ADLs at baseline (walking, daily tasks, etc.): Yes Chief Complaint is related to a chronic condition: Yes Chronic Condition: constipation Chief Complaint is a change in baseline: Unknown Patient prescribed oxygen? No Patient has been ordered DME equipment (assistive devices, respiratory equipment, etc.): Yes Describe DME devices: wheelchair, hospital bed, [facility] Patient is using DME device as directed: Yes Medication Reconciliation: (See medication list) Taking medication as ordered: Yes Medications ordered/taking to treat reason for call: Yes, PRN medication(s) Miralax, Dulcolax 3 tabs ths am Heart failure symptoms: No COPD exacerbation symptoms: No Reinforcement Education: Increase PO fluids Give the pt a Dulcolax suppository now Give pt a Fleet enema if suppository is not effective Gilma is leaving now, has been there all day. Gilma states that they have no suppositories nor enemas in the home and she is doubtful that the family will administer either to the pt. She states the family is asking for a nurse to come to the home to do it. Treatment/Plan: (need to report) Level of call: Acute Appointment scheduled for same day: No Treatment plan until appointment:fluids Will send to [facility] for recommendations 24/48 hr f/u phone calls scheduled Va ANTOINE RN [facility] Intake Triage Coordinator [phone] Call back instructions provided to patient. documented in this encounter Plan of Treatment Upcoming Encounters Date Type Specialty Care Team Description 06/18/2022 [facility] [address] [place] [address] 06/19/2022 [facility]uled [facility] [place] 132 [place] [address] 06/21/2022 [facility]medicine [facility] Aleyda Campos PA-C [address] [place] [address] Kaylee Barakat, Community [facility] Mining Detail Draftsperson [address] [place] [address] 06/24/2022 Office Visit Sleep Disorders Love Francisco DO 132 [place] [address] 06/28/2022 Home Visit [facility] July Poe RN [address] [place] [address] 07/05/2022 Home Visit Family Medicine Kaylee Barakat, Community [facility] Mining Detail Draftsperson [address] [place] [address] 07/05/2022 Pharmacy Pharmacy Pharmacist2, [facility] Sp [address] [place] [address] 07/06/2022 Hem/Onc Treatment Hematology Oncology [place], Chair 7 Hem Onc [facility] [address] [place] [address] 08/23/2022 Office Visit Endocrinology Alberta Duque PA-C [address] [place] [address] 08/30/2022 Office Visit Gastroenterology Lyssa Stout CRNP 132 [place] [address] 09/01/2022 Office Visit Gynecology Obstetrics Concetta Khan MD 400 [facility] [place] [address] 09/14/2022 PulmDiagnostic Pulmonary Function West, Pft [address] [place] [address] 09/28/2022 Office Visit Pulmonary Reynaldo Marquez MD [address] [facility] [place] [phone] 10/26/2022 Office Visit Hematology Oncology Tono Sanchez MD [address] [place] [address] Scheduled Orders Name Type Priority Associated Diagnoses Orde r Schedule XR ABDOMEN 1 VIEW Medical Imaging Routine Constipation, unspecified constipation type Ordered: 06/17/2022 Scheduled Procedures Name Priority Associated Diagnoses Date/Ti [...] of this encounter Implants Implanted Type Area Examination Scorer Device Identifier Shelf Expiration Date Model / Serial / Lot Microtech Sure Clip Implanted:Qty: 2 on 06/03/2020 by Janis Hatch DO at OR [facility] Clip N/A: Colon 04/21/2022 [facility]-F-26-2 35-C-R / / [id number] documented as of this encounter Visit Diagnoses Diagnosis Constipation, unspecified constipation type- Primary documented in this encounter Advance Directives Documents on File Type Date Recorded Patient End Worker 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 WILL AND HEALTH CARE POA Power of Forest Ranger 04/29/2021 12:00 AM TOM Johnson [facility] CARE POA Advanced Directive 04/01/2021 1:14 [...] on File Name Relationship Healthcare Agent [facility] p Communication Syed Bustos Spouse Emergency Contact Care Teams Director Clinical Pharmacology Relationship Specialty Start Date End Date Vanita Dunn MD [address] [place] [address] PCP - General Family Medicine 03/16/21 documented as of this encounter
--- OUTSIDE RECORDS SUMMARY | 2023-05-10 18:06 | External Medical Summary | Summary of Care ---
Author Name Unknown Organization [facility] Address [facility] [place] [address] Care Team Providers Care Line Tender Flakeboard Name Role Phone Vanita Dunn MD Primary Care Provid er Reason for Visit * Reason Onset Date Comments [facility]: Acute 06/17/2022 Encounter Details Date Type Department Care Team Description 06/17/2022 Telephone [facility] [address] [facility] [place] [address] [facility], Nurse [address] [place] [address] [facility]: Acute 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 documented as of this encounter (statuses as of 06/17/2022) Medications Medication Sig Dispensed Refills Start Date End Date Status nystatin (NYSTOP) 529510 UNIT/GM powder Apply topically to affected area 3 times a day. 60 g 1 10/16/2019 Active Dexcom G6 Founder And Chief Technical Officer Device Use as directed. To test blood sugars 4 times a day Dx E11.9 1 Each 0 09/14/2020 Active Dexcom G6 Transmitter Use as directed. To test blood sugars 4 times a day. Change every 90 days. 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 HPI: Shaina Bustos is a 67 year old female whose caregiver Gilma is [facility] has had no BM since Monday06/14/22. Pt's family wanted her to call [facility] instead of takingthe pt to the [...] Describe DME devices: wheelchair, hospital bed, [facility] Patient is using DME device as directed: [...] Treatment plan until appointment:fluids Will send to [facility] for recommendations 24/48 hr f/u phone calls scheduled Va ANTOINE, RN [facility] Intake Triage Coordinator [phone] Call back instructions provided to patient. documented in this encounter Plan of Treatment Upcoming Encounters Date Type Specialty Care Team Description 06/18/2022 Scheduled Telephone [facility], Nurse [address] [place] [address] 06/19/2022 Scheduled Telephone [facility], Nurse [address] [place] [address] 06/21/2022 Telemedicine [facility] Aleyda Campos PA-C [address] [facility] [place] [address] Kaylee Barakat, Community Health Cable Dispatcher [facility] [place] [address] 06/24/2022 Office Visit Sleep Disorders Love Francisco DO [address] [facility] [place] [address] 06/28/2022 Home Visit [facility] July Poe RN [address] [place] [place] [address] 07/05/2022 Home Visit Family Medicine Kaylee Barakat, Community Health Cable Dispatcher [address] [place] [address] 07/05/2022 Pharmacy Pharmacy Pharmacist2, [facility] Sp [address] [facility] [place] [address] 07/06/2022 Hem/Onc Treatment Hematology Oncology [place], Chair 7 Hem Onc Scenery [address] [facility] [place] [address] 08/23/2022 Office Visit Endocrinology Alberta Duque PA-C [address] [place] [address] 08/30/2022 Office Visit Gastroenterology Lyssa Stout CRNP [address] [facility] [place] [address] 09/01/2022 Office Visit Gynecology Obstetrics Concetta Khan MD [address] [place] [address] 09/14/2022 PulmDiagnostic Pulmonary Function West, Pft [address] [facility] [address] 09/28/2022 Office Visit Pulmonary Reynaldo Marquez MD [address] 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
--- OUTSIDE RECORDS SUMMARY | 2023-05-10 18:06 | External Medical Summary | Summary of Care ---
Author Name Unknown Organization [facility] Address [facility] [place] [address] Care Team Providers Care Card Writer Hand Name Role Phone Vanita Dunn MD Primary Care Provid er Reason for Visit * Reason Onset Date Comments [facility]: Acute 06/17/2022 Encounter Details Date Type Department Care Team Description 06/17/2022 Telephone [facility], [facility] [address] [facility] [place] [address] [facility], Nurse [address] [place] [address] [facility]: Acute 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 documented as of this encounter (statuses as of 06/17/2022) Medications Medication Sig Dispensed Refills Start Date End Date Status nystatin (NYSTOP) 335024 UNIT/GM powder Apply topically to affected area 3 times a day. 60 g 1 10/16/2019 Active Dexcom G6 Senior Materials Planner Device Use as directed. To test blood sugars 4 times a day Dx E11.9 1 Each 0 09/14/2020 Active Dexcom G6 Transmitter Use as directed. To test blood sugars 4 times a day. Change every 90 days. 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 HPI: Shaina Bustos is a 67 year old female whose caregiver Gilma is calling [facility] pt has had no BM since Monday06/14/22. Pt's family wanted her to call [facility] instead of takingthe pt to the ED. [...] Yes Describe DME devices: wheelchair, hospital bed, [facility] Patient is using DME device as directed: [...] Treatment plan until appointment:fluids Will send to [facility] for recommendations 24/48 hr f/u phone calls scheduled Va ANTOINE RN [facility] Intake Triage Coordinator [phone] Call back instructions provided to patient. documented in this encounter Plan of Treatment Upcoming Encounters Date Type Specialty Care Team Description 06/18/2022 Scheduled Telephone [facility] Nurse [place] [address] [address] [place] [address] 06/19/2022 Scheduled Telephone [facility] Nurse [place] [address] [place] [address] 06/21/2022 Telemedicine [facility] Aleyda Campos PA-C [address] [place] [address] Kaylee Barakat, Community Health Historical Manuscripts Curator [address] [place] [address] 06/24/2022 Office Visit Sleep Disorders Love Francisco DO [address] [place] [address] 06/28/2022 Home Visit [facility] July Poe RN 132 [place] [address] 07/05/2022 Home Visit Family Medicine Kaylee Barakat, Community Health Historical Manuscripts Curator [address] [place] [address] 07/05/2022 Pharmacy Pharmacy Pharmacist2, [facility] Clinic Sp [address] [place] [address] 07/06/2022 Hem/Onc Treatment Hematology Oncology [place], Chair [address] [address] 08/23/2022 Office Visit Endocrinology Alberta Duque PA-C [address] [place] [address] 08/30/2022 Office Visit Gastroenterology Lyssa Stout CRNP [address] [place] [address] 09/01/2022 Office Visit Gynecology Obstetrics Concetta Khan MD [address] [place] [address] 09/14/2022 PulmDiagnostic Pulmonary Function West, Pft [address] [place] [address] 09/28/2022 Office Visit Pulmonary Reynaldo Marquez MD [address] [place] [address] 10/26/2022 Office Visit Hematology Oncology Tono Sanchez MD [address] [place] [address] Scheduled Orders Name Type Priority Associated Diagnoses [...] of this encounter Implants Implanted Type Area Wheel Fitter Device Identifier Shelf Expiration Date Model / Serial / Lot Microtech Sure Clip Implanted:Qty: 2 on 06/03/2020 by Janis Hatch DO at OR [facility] Clip N/A: Colon 04/21/2022 [facility]-F-26-2 35-C-R / / [id number] documented as of this encounter Visit Diagnoses Diagnosis Constipation, unspecified constipation type- Primary documented in this encounter Advance Directives Documents on File Type Date Recorded 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
--- OUTSIDE RECORDS SUMMARY | 2023-05-10 18:06 | External Medical Summary | Summary of Care ---
Author Name Unknown [place] [address] Care Team Providers Care Household Assistant Name Role Phone Vanita Dunn MD Primary Care Provid er Reason for Visit * Reason Comments IV Therapy Venofer Encounter Details Date Type Department Care Team Description 06/14/2022 Hem/Onc Treatment Hematology/Oncology Treatment, [place] [address] [place] [address] [place], Chair 6 Hem Onc Scenery [address] [facility] [place] [address] Iron deficiency anemia due to chronic blood loss*; Thrombocytopenia (HCC) 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 documented as of this encounter (statuses as of 06/14/2022) Medications Medication Sig Dispensed Refills Start Date End Date Status nystatin (NYSTOP) 885361 UNIT/GM powder Apply topically to affected area 3 times a day. 60 g 1 10/16/2019 Active Dexcom G6 Check Airman Device Use as directed. To test blood sugars 4 times a day Dx E11.9 1 Each 0 09/14/2020 Active Dexcom G6 Transmitter Use as directed. To test blood sugars 4 times a day. Change every 90 days. Dx E11.9 1 Each 3 09/14/2020 Active OneTouch Verio In Vitro Strip (Glucose Blood) TESTING once daily 100 Strip 3 10/29/2020 Active OneTouch Delica Plus [id number] TESTING once daily 100 Each 3 10/29/2020 [...] TIMES DAILY. 400 Each 3 05/23/2022 Active Hospital, Clinic, or Other Facility Administered [...] as of this encounter (statuses as of 06/14/2022) Active Problems Problem Noted Date Hypertensive heart [...] as of this encounter (statuses as of 06/14/2022) Resolved Problems Problem Noted Date Resolved Date [...] pain 01/24/2012 01/17/2017 Genetic Sleep Disorder Research Other*[id number] 05/13/2011 04/07/2016 Obstructive sleep apnea 01/18/2011 12/27/19 [...] as of this encounter (statuses as of 06/14/2022) Immunizations Name Administration Dates Next Due COVID-19 [...] Sign Reading Time Taken Comments Blood Pressure 123/79 06/14/2022 2:51 PM EDT Pulse 59 06/14/2022 2:51 PM EDT Temperature 36.4 C (97.6 F) 06/14/2022 2:51 PM ED T Respiratory Rate 20 06/14/2022 2:51 PM EDT Oxygen Saturation - - Inhaled [...] Nursing Notes * Renetta Schuler RN - 06/14/2022 4:10 PM EDT Pt completed treatment without issues. [...] No coverage. * Renetta Schuler RN - 06/14/2022 2:51 PM EDT Pt arrives to clinic in own w/c. Pt has no concerns to report today. VAD accessed; specimen collected for standing lab orders. NSS/Venofer infusing. Safety and Risk for Injury Patient will remain free from injury. Ensure appropriate safety devices are available. Provide and maintain safe environment. documented in this encounter Plan of Treatment Upcoming Encounters Date Type Specialty Care Team Description 06/21/2022 [facility]medicine [facility]C [facility] [place] [address] Kaylee Barakat, Community Health Tobacco Sorter [address] [place] [address] 06/24/2022 Office Visit Sleep Disorders Love Francisco DO [address] [place] [address] 06/28/2022 Home Visit [facility] July Poe RN [address] [place] [address] 07/05/2022 Home Visit Family Medicine Kaylee Barakat, Community Health Tobacco Sorter [address] [place] [address] 07/05/2022 Pharmacy Pharmacy Pharmacist, [facility] 200 [place] [address] 07/06/2022 Hem/Onc Treatment Hematology Oncology [place], Chair [address] [address] 08/23/2022 Office Visit Endocrinology Alberta Duque PA-C [address] [place] [address] 08/30/2022 Office Visit Gastroenterology Lyssa Stout CRNP [address] [place] [address] 09/01/2022 Office Visit Gynecology Obstetrics Concetta Khan MD [address] [place] [address] 09/14/2022 PulmDiagnostic Pulmonary Function West, Pft [address] [place] [address] 09/28/2022 Office Visit Pulmonary Reynaldo Marquez MD [address] [place] [phone] 10/26/2022 Office Visit Hematology Oncology Tono Sanchez MD 200 [place] [address] Scheduled Procedures Name Priority Associated Diagnoses Date/Ti [...] of this encounter Implants Implanted Type Area Workforce Development Program Director Device Identifier Shelf Expiration Date Model / Serial / Lot Microtech Sure Clip Implanted:Qty: 2 on 06/03/2020 by Janis Hatch DO at OR [facility] Clip N/A: Colon 04/21/2022 [facility]-F-26-2 35-C-R / / [id number] documented as of this encounter Procedures Procedure Name Priority Date/Time Associated Diagnosis Comments DIFFERENTIAL, AUTOMATED STAT 06/14/2022 2:34 PM EDT Thrombocytopenia (HCC) CBC WITH WBC DIFFERENTIAL STAT 06/14/2022 2:34 PM EDT Thrombocytopenia (HCC) CBC STAT 06/14/2022 2:34 PM EDT Thrombocytopenia (HCC) DIFFERENTIAL, TECHNOLOGIST REVIEW Routine 06/14/2022 2:34 PM EDT Thrombocytopenia (HCC) documented in this encounter Results * (ABNORMAL) DIFFERENTIAL, TECHNOLOGIST REVIEW (06/14/2022 2:34 PM EDT) nRBCs [facility]ORY [facility] E [facility] 56- Anisocytosis Slight(A) None Seen [facility] E [facility] 56-02 Elliptocytes Few(A) None Seen LABORATORY STAT E [facility] 56-02 Macrocytosis Present(A) None Seen [facility] E [facility] 56-02 Tear Drop Cells Few(A) None Seen LABORATORY [facility] 56-02 Specimen Blood - Blood sample taken f rom central line (situation) [facility] [place] 56-[address] [place] [address] * (ABNORMAL) DIFFERENTIAL, AUTOMATED (06/14/2022 2:34 PM EDT) Pathologist [facility] WBC 2.70(L) 4.00 - 10.80 K/uL [facility] [place] 56-02 Neutrophils % 55.6 40.0 - 75.0 % [facility] 56-02 Lymphocytes % 20.0 18.0 - 42.0 % [facility] Monocytes % 13.3(H) 1.0 - 11.0 % LAB[facility]ORY [facility] Eosinophils % 10.0(H) 0.0 - 6.0 % LABORATORY [address] Basophils % 1.1 0.0 - 2.0 % [address] Absolute Neutrophils 1.50(L) 1.80 - 7.70 K/uL [address] Absolute Lymphocytes 0.54(L) 1.00 - 4.80 K/ul [address] Absolute Monocytes 0.36 0.00 - 1.10 K/uL [place] [address] Absolute Eosinophils 0.27 0.00 - 0.70 K/uL [place] [address] Absolute Basophils 0.03 0.00 - 0.20 K/uL [address] Specimen Blood - Blood sample taken f rom central line (situation) [place] [address] [address] [place] [id number] * (ABNORMAL) CBC (06/14/2022 2:34 PM EDT) WBC 2.70(L) 4.00 - 10.80 K/uL [facility] RBC 2.38 3.85 - 5.15 M/uL [facility] HGB 8.7(L) 12.0 - 15.3 g/dL [address] HCT 27.5(L) 36.0 - 45.2 % LABORATORY [facility] MCV 115.5 81.5 - 97.5 fL [facility] - MCH 36.6 27.0 - 34.0 pg [facility] MCHC 31.6 32.0 - 36.0 g/dL [address] RDW 17.5 11.5 - 15.5 % [address] PLT 58(L) 140 - 400 K/uL [address] MPV 13.7 6.6 - 11.[address] Specimen Blood - Blood sample taken f rom central line (situation) [facility] 56-20 [address] [place] [address] documented in this encounter Visit [...] ONCE PRN Other, Hypersensitivity Reaction, Starting on Mon06/14/22 at 1424, Until Mon06/15/22 at 1423, For 24 hours EPINEPHrine 1 MG/ML inj 0.3 mg 0.3 mg, Intramuscular, ONCE PRN Other, Hypersensitivity Reaction or Anaphylaxis, Starting on Mon06/14/22 at 1424, Until Mon06/15/22 at 1423, For 24 hours hEParin 100 UNIT/ML Lock Flush inj 500 Units 500 Units (5 mL), IV Lock, PRN Other, IV Flush, Starting on Mon06/14/22 at 1424, Until Mon06/15/22 at 1423, For 24 hours, Do not flush if lock, PICC, or central line not in place; IV infusing or unable to flush. Given 06/14/2022 4:00 PM EDT 500 Units Hydrocortisone Na Succinate PF (Solu-Cortef) inj 100 mg 100 mg, IV Push, ONCE PRN Other, Hypersensitivity Reaction, Starting on Mon06/14/22 at 1424, Until Mon06/15/22 at 1423, For 24 hours NSS infusion 500 mL, Intravenous, at 50 mL/hr, CONTINUOUS, Starting on Mon06/14/22 at 1530, Until Mon06/15/22 at 0129 Start Infusion 06/14/2022 2:25 PM EDT 500 mL 50 mL/hr sodium chloride 0.9 % flush/inj 10 mL 10 mL, IV Push, PRN Other, IV Flush, Starting on Mon06/14/22 at 1424, Until Mon06/15/22 at 1423, For 24 hours, Do not flush if lock, PICC, or central line not in place; IV infusing or unable to flush. 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
--- OUTSIDE RECORDS SUMMARY | 2023-05-10 18:07 | External Medical Summary | Summary of Care ---
Author Name Unknown Organization [place] [address] Care Team Providers Care Scraper Loader Operator Name Role Phone Vanita Dunn MD Primary Care Provid er Encounter Details Date Type Department Care Team Description 05/20/2022 Telephone Endocrinology, [facility] [address], [place] [id number] Alberta Duque PA-C [address], [place] [id number] 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 documented as of this encounter (statuses as of 06/14/2022) Medications Medication Sig Dispensed Refills Start Date End Date Status nystatin (NYSTOP) 161773 UNIT/GM powder Apply topically to affected area 3 times a day. 60 g 1 0 Active Dexcom G6 Senior Microsoft Consultant Device Use as directed. To test blood sugars 4 times a day Dx E11.9 1 Each 0 1 Active Dexcom G6 Transmitter Use as directed. To test blood sugars 4 times a day. Change every 90 days. Dx E11.9 1 Each 3 1 Active OneTouch Verio In Vitro Strip (Glucose Blood) TESTING once daily 100 Strip 3 1 Active OneTouch Delica Plus [id number] TESTING once daily 100 Each 3 1 [...] ONCE DAILY 68 Cap 0 1 Active metFORMIN HCl ER 500 MG Oral Tablet Extended Release 24 Hour (Glucophage XR) Take one tablet by mouth daily with a meal 90 Tab 3 1 Active Fluticasone Propionate 50 MCG/ACT Nasal Suspension (Flonase)Indicatio ns:Sinus congestion USE 2 SPRAYS IN EACH NOSTRIL ONCE DAILY DIRECTED 16 g 5 1 Active Budesonide-Formote rol Fumarate 160-4.5 MCG/ACT Inhalation Aerosol (Symbicort) Inhale [...] BY MOUTH DAILY 90 Tablet 3 2 Active Nadolol 40 MG Oral Tablet (Corgard)Indicatio ns:HTN, goal below 140/90 TAKE 1 TABLET BY MOUTH ONCE DAILY 90 Tablet 1 2 Active Lidocaine-Prilocai ne 2.5-2.5 % External Cream (Emla)Indications: Encounter for antineoplastic chemotherapy Apply topically to affected area as needed for Other (when accessing port). APPLY TO SKIN OVER MEDIPORT & COVER 1HR PRIOR TO ACCESSING. 30 g 0 2 Active Atorvastatin Calcium 80 MG Oral Tablet (Lipitor) TAKE 1 TABLET BY MOUTH AT BEDTIME 90 Tablet 1 2 Active Furosemide 20 MG Oral Tablet (Lasix) TAKE 1 TABLET BY MOUTH DAILY as needed for lower extremity swelling 90 Tablet 1 2 Active Isosorbide Mononitrate ER 30 MG Oral Tablet Extended Release 24 Hour (Imdur) TAKE 1 TABLET BY MOUTH DAILY 90 Tablet 1 2 Active Lactulose 10 [...] ONCE DAILY 30 Tablet 8 2 Active NovoLOG FlexPen 100 UNIT/ML Subcutaneous Solution Pen-injectorIndica tions:Type 2 diabetes mellitus with hemoglobin A1c goal of less than 8.0% (HCC) 35 Units at breakfast, 39 Units before lunch, 45 Units before supper 120 mL 3 2 Active Oxybutynin Chloride 5 MG Oral Tablet (Ditropan) TAKE 1 TABLET BY MOUTH TWICE DAILY 180 Tablet 1 2 Active Lantus SoloStar 100 UNIT/ML Subcutaneous Solution Pen-injectorIndica tions:Type 2 diabetes mellitus with hemoglobin A1c goal of less than 8.0% (HCC) Inject under the skin 50 Units every night at bedtime . 45 mL 3 2 Active Silver sulfADIAZINE 1 % External Cream (Silvadene)Indicat ions:Pressure injury of skin of sacral region, unspecified injury stage Apply topically to affected area daily . Apply to wound 85 g 11 2 Active Gabapentin 300 MG Oral Capsule (Neurontin)Indicat ions:DM type 2 with diabetic peripheral neuropathy (HCC),Diabetic foot (HCC) take 1 capsule by mouth every morning, 1 capsule midday and 2 capsules in the evening. may take an extra dose in the morning and midday if needed for pain. max daily amount:6 capsules 360 Capsule 0 2 Active Spironolactone 25 MG Oral Tablet [...] other meds). 30 Tablet 11 2 Active Levothyroxine Sodium 175 MCG Oral Tablet (Levoxyl)Indicatio ns:Acquired hypothyroidism Take 1 Tab by mouth daily. (at least 30 min prior to breakfast or other meds) 35 Tab 11 1 05/20/20 22 Discontinued Linzess 290 MCG Oral Capsule (linaCLOtide) TAKE 1 CAPSULE BY MOUTH ONCE DAILY BEFORE BREAKFAST 90 Capsule 1 1 06/13/20 22 Discontinued(Ref ill) BD Pen Needle Mini U/F 31G X 5 MM (Insulin Pen Needle)Indications :Type 2 diabetes mellitus with hemoglobin A1c goal of less than 7.0% (HCC) USE TO INJECT INSULIN FOUR TIMES DAILY. 400 Each 3 1 05/23/20 22 Discontinued traMADol HCl 50 MG Oral Tablet (Ultram)Indication s:Acute pain of left shoulder TAKE 1 TABLET BY MOUTH TWICE DAILY NEEDED FOR SEVERE PAIN 20 Tablet 0 2 06/13/20 22 Discontinued Cefuroxime Axetil 250 MG Oral TabletIndications: Bronchitis, complicated Take by mouth 1 Tablet in the morning AND 1 Tablet before bedtime. 20 Tablet 0 2 06/02/20 22 Discontinued([facility] List Clean Up) Hospital, Clinic, or Other [...] pain 01/24/2012 01/17/2017 Genetic Sleep Disorder Research Other*[id number] 05/13/2011 04/07/2016 Obstructive sleep apnea 01/18/2011 12/27/19 [...] encounter Miscellaneous Notes * Telephone Encounter - Scarlett Adrian RN - 06/14/2022 2:01 PM EDT Called and spoke with the pt to see if she had started the increased dose of Levothyroxine. She stated that she had not gotten the message. Pt said she did not. Made her aware to increase levothyroxine to 150 mcg and to repeat labs in 6 weeks. Pt verbalized understanding and is agreeable with plan. Scarlett Adrian RN RN Coordinator Endocrinology * Telephone Encounter - Scarlett Adrian RN - 05/31/2022 11:35 AM EDT Called and left a detailed message for pt To decrease Levothyroxine to 150 mcg and repeat labs in 6weeks. * Telephone Encounter - Alberta Duque PA-C - 05/20/2022 4:48 PM EDT Tried calling patient . LVM to call back. TSH low and free T4 elevated, recommend decreasing dose to levothyroxine 150 mcg daily, updated labs in 6 weeks. A1C 7.4%. Will send in new prescription and labs. Scarlett : can you try calling patient and discussing above. Alberta Duque PA-C documented in this encounter Plan of Treatment Upcoming Encounters Date Type Specialty Care Team Description 06/21/2022 Telemedicine [facility] Aleyda Campos PA-C [address] [facility] [place] [address] Kaylee Barakat, Community Health Morgue Technician [address], [place] [phone] 06/24/2022 Office Visit Sleep Disorders Love Francisco DO [address] [place] [address] 06/28/2022 Home Visit [facility] July Poe, RN [address] [place] [address] 07/05/2022 Home Visit Family Medicine Kaylee Barakat, Community Health Morgue Technician [address] [place] [address] 07/05/2022 Pharmacy Pharmacy Pharmacist2, [facility] [address] [place] [address] 08/23/2022 Office Visit Endocrinology Alberta Duque PA-C [address] [place] [address] 08/30/2022 Office Visit Gastroenterology Lyssa Stout CRNP [address] [place] [address] 09/01/2022 Office Visit Gynecology Obstetrics Concetta Khan MD [address] [place] [address] 09/14/2022 PulmDiagnostic Pulmonary Function West, Pft [address] [facility] [place] [address] 09/28/2022 Office Visit Pulmonary Reynaldo Marquez MD [address] [place] [phone] 10/26/2022 Office Visit Hematology Oncology Tono Sanchez MD [address] [place] [address] Scheduled Orders Name Type Priority Associated Diagnoses Orde r Schedule TSH WITH FREE T4 IF INDICATED Lab Routine Acquired hypothyroidism Expected: 07/04/2022 (Approximate), Expires: 06/19/2023 Scheduled Procedures Name Priority Associated Diagnoses Date/Ti [...] of this encounter Implants Implanted Type Area Cath Lab Radiology Technician Device Identifier Shelf Expiration Date Model / Serial / Lot Microtech Sure Clip Implanted:Qty: 2 on 06/03/2020 by Janis Hatch DO at OR [facility] Clip N/A: Colon 04/21/2022 [facility]-F-26-2 35-C-R / / [id number] documented as of this encounter Visit Diagnoses Diagnosis Acquired hypothyroidism- Primary Unspecified hypothyroidism documented in this encounter Additional Health Concerns Infection Onset Date Last Indicated Resolved Time COVID-19 (confirmed) 04/29/2022 04/29/2022 022 12:19 AM EDT documented as of this encounter Advance Directives Documents on File Type Date Recorded Patient Audit Control Clerk 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 WILL AND HEALTH CARE POA Power of Handle Lathe Operator 04/29/2021 12:00 AM TOM R BOX FOLDING MACHINE OPERATOR HEALTH CARE POA Advanced Directive 04/01/2021 [...] Syed Bustos Spouse Emergency Contact Care Teams Scraper Loader Operator Relationship Specialty Start Date End Date Vanita Dunn MD [address] [place] [address] PCP - General Family Medicine 03/16/21 documented as of this encounter
--- OUTSIDE RECORDS SUMMARY | 2023-05-10 18:07 | External Medical Summary | Summary of Care ---
Author Name Unknown Organization [place] [address] Care Team Providers Care Victim Advocate Name Role Phone Vanita Dunn MD Primary Care Provid er Encounter Details Date Type Department Care Team Description 06/14/2022 Orders Only Hematology/Oncology [facility] [address] [place] [address] Chaparrita Cifuentes MD [address] [place] [address] 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 documented as of this encounter (statuses as of 06/14/2022) Medications Medication Sig Dispensed Refills Start Date End Date Status nystatin (NYSTOP) 176195 UNIT/GM powder Apply topically to affected area 3 times a day. 60 g 1 10/16/2019 Active Dexcom G6 Production Analyst Device Use as directed. To test blood sugars 4 times a day Dx E11.9 1 Each 0 09/14/2020 Active Dexcom G6 Transmitter Use as directed. To test blood sugars 4 times a day. Change every 90 days. Dx E11.9 1 Each 3 09/14/2020 Active OneTouch Verio In Vitro Strip (Glucose Blood) TESTING once daily 100 Strip 3 10/29/2020 Active OneTouch Delica Plus [id number] TESTING once daily 100 Each 3 10/29/2020 [...] pain 01/24/2012 01/17/2017 Genetic Sleep Disorder Research Other*[id number] 05/13/2011 04/07/2016 Obstructive sleep apnea 01/18/2011 12/27/19 [...] Home Aleyda Campos PA-C [address] [place] [address] Kaylee Barakat, Community Health Sprayer Leather [address] [place], [place] [phone] 06/24/2022 Office Visit Sleep Disorders Love Francisco, [address] [facility] [place] [address] 06/28/2022 Home Visit [facility] July Poe, RN [address] [facility] [place] [address] 07/05/2022 Home Visit Family Medicine Kaylee Barakat, Community Health Sprayer Leather [address] [place] [address] 07/05/2022 Pharmacy Pharmacy Pharmacist2, [facility] [address] [place] [address] 07/06/2022 Hem/Onc Treatment Hematology Oncology [place], Chair 7 Hem Onc Scenery [address] [place] [address] 08/23/2022 Office Visit Endocrinology Alberta Duque PA-C [address] [place], [place] [phone] 08/30/2022 Office Visit Gastroenterology Lyssa Stout CRNP [address] [facility] [place] [address] 09/01/2022 Office Visit Gynecology Obstetrics Concetta Khan MD [address] [place] [address] [place] [address] 09/14/2022 PulmDiagnostic Pulmonary Function West, Pft [address] [place] [address] 09/28/2022 Office Visit Pulmonary eRynaldo Marquez MD [address] [place] [phone] 10/26/2022 Office Visit Hematology Oncology Tono Sanchez MD [address] [place] [address] Scheduled Procedures Name Priority Associated Diagnoses Date/Ti [...] of this encounter Implants Implanted Type Area Rotary Furnace Operator Device Identifier Shelf Expiration Date Model / Serial / Lot Microtech Sure Clip Implanted:Qty: 2 on 06/03/2020 by Janis Hatch DO at OR [facility] Clip N/A: Colon 04/21/2022 [facility]-F-26-2 35-C-R / / [id number] documented as of this encounter Advance Directives Documents on File Type Date Recorded Patient Transportation Solutions Manager 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 WILL AND HEALTH CARE POA Power of Embedded Systems Software Engineer 04/29/2021 12:00 AM TOM R OF CONSULTING DATABASE ADMINISTRATOR HEALTH CARE POA Advanced Directive 04/01/2021 1:14 [...] Agents on File Name Relationship Healthcare Agent Maria Parham Health[facility] p Communication Syed Bustos Spouse Emergency Contact Care Teams Victim Advocate Relationship Specialty Start Date End Date Vanita Dunn MD [address] [place] [address] PCP - General Family Medicine 03/16/21 documented as of this encounter
--- OUTSIDE RECORDS SUMMARY | 2023-05-10 18:08 | External Medical Summary ---
Author Name Unknown Address Unknown Organization [facility] [address] Laboratory Report Ordering Provider Test Date Status JACOB CORBETT 06/14/2022 14:34:28 Final Observation Date Value Abnormality Reference (Units ) Status WBC, Total 06/14/2022 14:34:28 2.70 Below low normal 4. 00-10.80 (K/uL) Final RBC 06/14/2022 14:34:28 2.38 3.85-5.15 (M/uL) Final Hemoglobin 06/14/2022 14:34:28 8.7 Below low normal 12 .0-15.3 (g/dL) Final HCT 06/14/2022 14:34:28 27.5 Below low normal 36. 0-45.2 (%) Final MCV 06/14/2022 14:34:28 115.5 81.5-97.5 (fL) Final MCH 06/14/2022 14:34:28 36.6 27.0-34.0 (pg) Final MCHC 06/14/2022 14:34:28 31.6 32.0-36.0 (g/dL) Final RDW 06/14/2022 14:34:28 17.5 11.5-15.5 (%) Final Platelets 06/14/2022 14:34:28 58 Below low normal 140 -400 (K/uL) Final MPV 06/14/2022 14:34:28 13.7 6.6-11.1 ( fL) Final Performing Location [facility] [address]
--- OUTSIDE RECORDS SUMMARY | 2023-05-10 18:08 | External Medical Summary ---
Author Name Unknown Address Unknown Organization K09[facility] [place] [address] Laboratory Report Ordering Provider Test Date Status JACOB CORBETT 06/14/2022 14:34:28 Final Observation Date Value Abnormality Reference (Units ) Status SYNC LEUKOCYTES IN BLOOD BY AUTOMATED COUNT 06/14/2022 14:34:28 2.70 Below low normal 4.00-10.80 (K/uL) Final Segs 06/14/2022 14:34:28 55.6 40.0-75.0 (%) Final Lymphs % 06/14/2022 14:34:28 20.0 18.0-42.0 (%) Final Monos 06/14/2022 14:34:28 13.3 Above high normal 1.0-11.0 (%) Final Eosinophils 06/14/2022 14:34:28 10.0 Above high normal 0.0-6.0 (%) Final Basos 06/14/2022 14:34:28 1.1 0.0-2.0 (%) Final Absolute Segs 06/14/2022 14:34:28 1.50 Below low normal 1.80-7.70 (K/uL) Final Lymphs, absolute 06/14/2022 14:34:28 0.54 Below low normal 1.00-4.80 (K/ul) Final Monos, Abs 06/14/2022 14:34:28 0.36 0.00-1.10 (K/uL) Final Eos, Abs 06/14/2022 14:34:28 0.27 0.00-0.70 (K/uL) Final Basos, Abs 06/14/2022 14:34:28 0.03 0.00-0.20 (K/uL) Final Performing Location [facility] [place] [address]
--- OUTSIDE RECORDS SUMMARY | 2023-05-10 18:08 | External Medical Summary | Summary of Care ---
Author Name Unknown Organization [facility] [place] [address] Care Team Providers Care Fur Matcher Name Role Phone Vanita Dunn MD Primary Care Provid er Reason for Visit * Reason Comments [facility]: Maintenance Encounter Details Date Type Department Care Team Description 06/10/2022 Home Visit [facility] [address] [facility] [place] [address] July Poe, RN 132 [facility] [place] [address] 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 documented as of this encounter (statuses as of 06/13/2022) Medications Medication Sig Dispensed Refills Start Date End Date Status nystatin (NYSTOP) 683580 UNIT/GM powder Apply topically to affected area 3 times a day. 60 g 1 10/16/2019 Active Dexcom G6 Machine Finisher Device Use as directed. To test blood sugars 4 times a day Dx E11.9 1 Each 0 09/14/2020 Active Dexcom G6 Transmitter Use as directed. To test blood sugars 4 times a day. Change every 90 days. Dx E11.9 1 Each 3 09/14/2020 Active OneTouch Verio In Vitro Strip (Glucose Blood) TESTING once daily 100 Strip 3 10/29/2020 Active OneTouch Delica Plus [id number] TESTING once daily 100 Each 3 10/29/2020 [...] DAILY DIRECTED 16 g 5 06/11/2021 Active Linzess 290 MCG Oral Capsule (linaCLOtide) TAKE 1 CAPSULE BY MOUTH ONCE DAILY BEFORE BREAKFAST 90 Capsule 1 07/22/2021 Active Budesonide-Formoterol Fumarate 160-4.5 MCG/ACT Inhalation Aerosol (Symbicort) Inhale by mouth 2 Puffs 2 times a day . 10.2 g 1 09/27/2021 Active Dexcom G6 Sensor use as directed to test blood sugar 4 times daily. change sensor every 10 days 3 Each 3 09/27/2021 Active traMADol HCl 50 MG Oral Tablet (Ultram)Indications:A cute pain of left shoulder TAKE 1 TABLET BY MOUTH TWICE DAILY NEEDED FOR SEVERE PAIN 20 Tablet 0 11/05/2021 Active Disposable Brief X-LargeIndications:Hy pertensive heart disease [...] as of this encounter (statuses as of 06/13/2022) Active Problems Problem Noted Date Hypertensive heart [...] as of this encounter (statuses as of 06/13/2022) Resolved Problems Problem Noted Date Resolved Date [...] 0 Bladder tumor 10/11/2017 02/13/2018 Chronic indwelling Clnie catheter 10/11/2017 02/13/2018 Recurrent UTI 10/11/2017 02/13/2018 [...] 08/25/2015 06/07/20 16 Bilateral shoulder pain 07/16/2015 09/27/20 16 Cerebral palsy 04/23/2015 03/28/2017 Candidal vulvovaginitis [...] pain 01/24/2012 01/17/2017 Genetic Sleep Disorder Research Other*[id number] 05/13/2011 04/07/2016 Obstructive sleep apnea 01/18/2011 12/27/19 [...] as of this encounter (statuses as of 06/13/2022) Immunizations Name Administration Dates Next Due COVID-19 [...] Sign Reading Time Taken Comments Blood Pressure 126/70 06/10/2022 9:30 AM EDT Pulse 68 06/10/2022 9:30 AM EDT Temperature 36.1 C (97 F) 06/10/2022 9:30 AM EDT Respiratory Rate 18 06/10/2022 9:30 AM EDT Oxygen Saturation 96% 06/10/2022 9:30 AM EDT Inhaled Oxygen Concentration - - [...] Progress Notes * July Poe RN - 06/10/2022 7:40 AM EDT [facility] BALDOMERO #1 Visit Date: 06/10/2022 Time: 7:40 AM Name: Shaina Bustos : 1955 Current Concerns: Pt seen for BALDOMERO #1 Admitted to [facility] 06/06 - 06/08 for constipation KUB showed moderate fecal retention Restarted on Linzess - reports they had stopped using it because "someone" told him to Lactulose increased to 30gm TID (45ml) She completed abx for MRSA UTI while in hospital Advised to take Miralax daily if not having at least 2 bowel movements a day Pt reports she is feeling tired today but overall doing better She admits to not liking to drink the Lactulose but cg present and reports they got new bottles that are unflavored now, so may help with the taste present and reviewed the new changes with him as well Stressed to him, cg and pt that she needs to have at least 2 bowel movements a day and if not, to call [facility] Cg reports she knows to call [facility] but often on the weekends it's possible that pt is not getting enough lactulose and does not call [facility] with any concerns Stressed to that [facility] is here to help pt at home - interventions can often be done from homeand there is always someone available if he calls - weekends and holidays included - he verbalized understanding Physical Exam: BP 126/70 | Pulse 68 | Temp 36.1 C (97 F) | Resp 18 | SpO2 96% Pain 0 Physical Exam Constitutional: Appearance: She is obese. HENT: Nose: Nose normal. Cardiovascular: Rate and Rhythm: Normal rate and regular rhythm. Pulses: Normal pulses. Heart sounds: Normal heart sounds. Pulmonary: Effort: Pulmonary effort is normal. Breath sounds: Normal breath sounds. Abdominal: General: Bowel sounds are normal. Palpations: Abdomen is soft. Tenderness: There is no abdominal tenderness. Musculoskeletal: Right lower leg: Edema (+1) present. Left lower leg: Edema (+1) present. Skin: General: Skin is warm and dry. Neurological: Mental Status: She is alert. Mental status is at baseline. Problems/Symptoms: Review of Systems Constitutional: Positive for fatigue. HENT: Negative. Eyes: Negative. Respiratory: Positive for cough. Cardiovascular: Positive for leg swelling. Gastrointestinal: Negative. Endocrine: Negative. Genitourinary: Positive for vaginal bleeding (scant amt). Musculoskeletal: Positive for gait problem (non-ambulatory). Skin: Negative. Psychiatric/Behavioral: Negative. Medication Reconciliation: (See medication list) Does patient take medications as ordered: Yes Patient Well Being: PHQ2/9: No questionnaires available. No change in living situation [facility] falls [facility] Completed this Visit: Yes. [facility]-10: Reason Completed: Status post ED visit/hospital admission [facility]-10 ([facility]) Fall Risk Assessment Tool Age 65+: Yes (06/10/22699) Diagnosis (3 or more co-existing): Yes (06/10/22699) Prior history of falls within 3 months: No (06/10/22699) Incontinence: Yes (06/10/22699) Visual impairment: No (06/10/22699) Impaired functional mobility: Yes (06/10/22699) Environmental hazards: No (06/10/22699) Poly Pharmacy (4 or more prescriptions - any type): Yes (06/10/22699) Pain affecting level of function: Yes (06/10/22699) Cognitive impairment: Yes (06/10/22699) Score - a score of 4 or more is considered at risk for fallin (06/10/22699) [facility]-10 Interventions: Fall education provided, reviewed/provided Fall brochure Advanced Care Planning: Living Will. and Healthcare POA. Patient's Goals of Care: 1. Remain at home 2. Feel better Reinforcement/Education: DIABETES: -Blood sugar testing schedule: Twice [...] 24 hrs Patient Needs to Remember: Call [facility] at with any new or worsening health concerns or problems, red flag symptoms. Referrals Needed: Other none Follow Up: Is there cellular connectivity/connectivity in the home? Yes Does the patient have internet in the home? Yes Patient encouraged to call the intake phone number for all urgent but not emergent issues. Is the patient new to [facility] within the last 30 days? No, Assess appropriateness for upcoming telehealth visits. Cancel telehealth visits & schedule home visit with care promotions team leader(s)as indicated. Provider is in agreement with Plan of Care: Yes Scheduled to follow up with patient per BALDOMERO schedule. July Poe RN 06/10/2022 7:40 AM documented in this encounter Plan of Treatment Upcoming Encounters Date Type Specialty Care Team Description 06/13/2022 Office Visit Family Medicine Vanita Dunn MD [address] [place] [address] 06/14/2022 Hem/Onc Treatment Hematology Oncology [place], Chair 6 [facility]c [facility] [address] [facility] [address] 06/21/2022 Telemedicine [facility] Aleyda Campos PA-C [address] [place] [address] Kaylee Barakat, Community Health Vacuum Drier Tender [address] [place] [address] 06/24/2022 Office Visit Sleep Disorders Love Francisco DO [address] [place] [address] 06/28/2022 Home Visit [facility] July Poe RN [address] [place] [address] 07/05/2022 Home Visit Family Medicine Kaylee Barakat, Community Health Vacuum Drier Tender [address] [place] [address] 07/05/2022 Pharmacy Pharmacy Pharmacist2, [facility] 200 [facility], [place] [address] 08/23/2022 Office Visit Endocrinology Alberta Duque PA-C [address] [place] [address] 08/30/2022 Office Visit Gastroenterology Lyssa Stout CRNP [address] [place] [address] 09/01/2022 Office Visit Gynecology Obstetrics Concetta Khan MD [address] [facility] [place] [address] 09/14/2022 PulmDiagnostic Pulmonary Function West, Pft [address] [place] [address] 09/28/2022 Office Visit Pulmonary Reynaldo Marquez MD [address] [place] [id number] 10/26/2022 Office Visit Hematology Oncology Tono Sanchez MD [address] [facility] [place] [address] Scheduled Procedures Name Priority Associated Diagnoses Date/Ti [...] of this encounter Implants Implanted Type Area Power Plant Manager Device Identifier Shelf Expiration Date Model / Serial / Lot Microtech Sure Clip Implanted:Qty: 2 on 06/03/2020 by Janis Hatch DO at OR [facility] Clip N/A: Colon 04/21/2022 [facility]-F-26-2 35-C-R / / [id number] documented as of this encounter Advance Directives Documents on File Type Date Recorded Patient Biomedical Engineering Technologist 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 WILL AND HEALTH CARE POA Power of CoContest 04/29/2021 12:00 AM TOM R RxCost Containment [facility] POA Advanced Directive 04/01/2021 1:14 PM Advanced [...] Syed Bustos Spouse Emergency Contact Care Teams Fur Matcher Relationship Specialty Start Date End Date Vanita Dunn MD [address] [place] [address] PCP - General Family Medicine 03/16/21 documented as of this encounter
--- OUTSIDE RECORDS SUMMARY | 2023-05-10 18:08 | External Medical Summary ---
Author Name Unknown Address Unknown Organization K09:[facility] [place] [address] Laboratory Report Ordering Provider Test Date Status JACOB CORBETT 06/14/2022 14:34:28 Final Observation Date Value Abnormality Reference (Units ) Status Nucleated erythrocytes/100 leukocytes [Ratio] in Blood by Automated count 06/14/2022 14:34:28 Final Anisocytosis [Presence] in Blood by Light microscopy 06/14/2022 14:34:28 Slight Abnormal None Seen Final Elliptocytes [Presence] in Blood by Light microscopy 06/14/2022 14:34:28 Few Abnormal None Seen Final Macrocytes [Presence] in Blood by Light microscopy 06/14/2022 14:34:28 Present Abnormal None Seen Final Dacrocytes [Presence] in Blood by Light microscopy 06/14/2022 14:34:28 Few Abnormal None Seen Final Performing Location [facility] [address] [address]
--- OUTSIDE RECORDS SUMMARY | 2023-05-10 18:08 | External Medical Summary | Summary of Care ---
Author Name Unknown Organization [facility] Address [place] [address] Care Team Providers Care Vice President Name Role Phone Vanita Dunn MD Primary Care Provid er Reason for Visit * Reason Onset Date Comments Hospital Follow-Up [facility] Medication Administration 06/13/2022 Flu an d/or Pneumo Inj Hospital Follow-Up 06/13/2022 Encounter Details Date Type Department Care Team Description 06/13/2022 Office Visit [place] [address] [place] [address] Vanita Dunn MD [address] [place] [address] Abdominal pain, generalized*; Need for prophylactic vaccination and inoculation against influenza; Other cirrhosis of liver (HCC); DDD (degenerative disc disease), lumbar; NAFLD (nonalcoholic fatty liver disease); Gastroesophageal reflux disease with esophagitis without hemorrhage; Impaired mobility and ADLs; Wheelchair dependent; Portal hypertensive gastropathy (HCC); Hospital discharge follow-up 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 documented as of this encounter (statuses as of 06/13/2022) Medications Medication Sig Dispensed Refills Start Date End Date Status nystatin (NYSTOP) 830617 UNIT/GM powder Apply topically to affected area 3 times a day. 60 g 1 02/05/202 0 Active Dexcom G6 Theater Technician Device Use as directed. To test blood sugars 4 times a day Dx E11.9 1 Each 0 1 Active Dexcom G6 Transmitter Use as directed. To test blood sugars 4 times a day. Change every 90 days. Dx E11.9 1 Each 3 1 Active OneTouch Verio In Vitro Strip (Glucose Blood) TESTING once daily 100 Strip 3 1 Active TucoolaTouch Delica Plus [id number] TESTING once daily 100 Each 3 1 [...] hemoglobin A1c goal of less than 7.0% ([facility]) inject 4.5mg (1 pen) under the skin once weekly 6 mL 5 2 Active Aspirin 81 MG Oral Tablet Chewable CHEW AND SWALLOW 1 TABLET BY MOUTH ONCE DAILY 30 Tablet 8 2 Active NovoLOG FlexPen 100 UNIT/ML Subcutaneous Solution Pen-injectorIndica tions:Type 2 diabetes mellitus with hemoglobin A1c goal of less than 8.0% ([facility]) 35 Units at breakfast, 39 [...] hemoglobin A1c goal of less than 7.0% ([facility]) USE TO INJECT INSULIN FOUR [...] (abdominal pain). 40 Tablet 0 2 Active Linzess 290 MCG Oral Capsule (linaCLOtide) TAKE 1 CAPSULE BY MOUTH ONCE DAILY BEFORE BREAKFAST 90 Capsule 1 1 06/13/20 22 Discontinued(Ref ill) traMADol HCl 50 MG Oral Tablet (Ultram)Indication s:Acute pain of left shoulder TAKE 1 TABLET BY MOUTH TWICE DAILY NEEDED FOR SEVERE PAIN 20 Tablet 0 2 06/13/20 22 Discontinued Hospital, Clinic, or Other Facility [...] pain 01/24/2012 01/17/2017 Genetic Sleep Disorder Research Other*[id number] 05/13/2011 04/07/2016 Obstructive sleep apnea 01/18/2011 12/27/19 [...] Sign Reading Time Taken Comments Blood Pressure 122/66 06/13/2022 1:57 PM EDT Pulse 55 06/13/2022 1:57 PM EDT Temperature 35.8 C (96.4 F) 06/13/2022 1:57 PM ED T Respiratory Rate - - Oxygen Saturation 96% 06/13/2022 1:57 PM EDT Inhaled Oxygen Concentration - - [...] Progress Notes * Vanita Dunn MD - 06/13/2022 2:17 PM EDT ASSESSMENT / PLAN: Shaina Bustos is a 67 year old female with PMHx wheelchair bound, h/o CP, chronic diastolic HF, cirrhosis of liverNAFLDcomplicated by esoph varices and portal hypertensive gastropathy, T2DM, morbid obesity, htn, hld , THAD on CPAP,restrictive lung disease, moderate persistent asthma,and chronic pain / - here for BALDOMERO - generalized abdominal pain likely 2/2 UTI and portal hypertensive gastropathy. See HPI for details. Reviewed pain control - pt is very wary of any opiate medications and nsaids are contraindicated. Uses tyelnol sparingly. Agree with resuming linzess, and also trial tramadol for pain control. Pt is agreeable. Monitor BMs. Abdominal pain, generalized (Primary) - traMADol HCl 50 MG Oral Tablet (Ultram); Take by mouth 2 Tablets every 6 hours as needed for Pain, Severe (abdominal pain). Need for prophylactic vaccination and inoculation against influenza - INFLUENZA VACC, QUAD, HIGH DOSE (FLUZONE HD) Other cirrhosis of liver (HCC) DDD (degenerative disc disease), lumbar NAFLD (nonalcoholic fatty liver disease) Gastroesophageal reflux disease with esophagitis without hemorrhage Impaired mobility and ADLs Wheelchair dependent Portal hypertensive gastropathy (HCC) Other orders - Linzess 290 MCG Oral Capsule (linaCLOtide); TAKE 1 CAPSULE BY MOUTH ONCE DAILY BEFORE BREAKFAST SUBJECTIVE: Nursing Notes: Tamara Fabian LPN 06/13/22 1404 Signed Chief Complaint Patient presents with Hospital Follow-Up [facility] HPI: Shaina Bustos is a 67 year old female. 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 Completed bactrim. TSH showed over supplementation, so thyroid hormone decreased to 125mcg daily. todays states her pain is the same aswhat brought her to the hospital. No bm's yet today. Last BM was 2 days ago. Voices concern about her having to clean up after her. Says she doesn't know "what to do" about her pain. Voices an understanding about hospital tests and interventions. Patient Active Problem List Diagnosis Code Venous insufficiency I87.2 Spinal stenosis of lumbar region without neurogenic claudication M48.061 Cerebral palsy ([facility]) G80.9 HTN, goal below 130/80 I10 NG (nonalcoholic steatohepatitis) K75.81 Venous stasis dermatitis of both lower extremities I87.2 DDD (degenerative disc disease), lumbar M51.36 Lymphedema I89.0 Type 2 diabetes mellitus with hemoglobin A1c goal of less than 8.0% ([facility]) E11.9 Vitamin D deficiency E55.9 Restrictive lung disease J98.4 Obesity, morbid (more than 100 lbs over ideal weight or BMI > 40) ([facility]) E66.01 Dyslipidemia E78.5 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 R39.81 Acquired hypothyroidism E03.9 Chronic pain syndrome G89.4 MEDICATION USE AGREEMENT [id number] Cirrhosis of liver (HCC) K74.60 THAD on CPAP G47.33, Z99.89 Wheelchair dependent Z99.3 DM type 2 with diabetic peripheral neuropathy (HCC) E11.42 Primary insomnia F51.01 Recurrent major depressive disorder, in partial remission ([facility]) F33.41 Impaired mobility and ADLs Z74.09, Z78.9 Gastroesophageal reflux disease K21.9 Fibromyalgia M79.7 Thrombocytopenia (HCC) D69.6 Iron deficiency anemia due to chronic blood loss D50.0 Esophageal varices (HCC) I85.00 Portal hypertensive gastropathy (HCC) K76.6, K31.89 Chronic diastolic (congestive) heart failure (HCC) I50.32 Hypertensive heart disease with congestive heart failure (HCC) I11.0 Pancytopenia ([facility]) D61.818 Current Outpatient Medications Medication Sig Dispense Refill Linzess 290 MCG Oral Capsule (linaCLOtide) TAKE 1 CAPSULE BY MOUTH ONCE DAILY BEFORE BREAKFAST 90 Capsule 1 traMADol HCl 50 MG Oral Tablet (Ultram) Take by mouth 2 Tablets every 6 hours as needed for Pain, Severe (abdominal pain). 40 Tablet 0 nystatin (NYSTOP) 507397 UNIT/GM powder Apply topically to affected area 3 times a day. 60 g 1 Dexcom G6 Theater Technician Device Use as directed. To test blood sugars 4 times a day Dx E11.9 1 Each 0 Dexcom G6 Transmitter Use as directed. To test blood sugars 4 times a day. Change every 90 days. Dx E11.9 1 Each 3 OneTouch Verio In Vitro Strip (Glucose Blood) TESTING once daily 100 Strip 3 OneTouch Delica Plus [id number] TESTING once daily 100 Each 3 Nitroglycerin [...] BY MOUTH ONCE DAILY 30 Tablet 8 NovoLOG FlexPen 100 UNIT/ML Subcutaneous Solution Pen-injector 35 Units at breakfast, 39 Units before lunch, 45 Units before supper 120 mL 3 Oxybutynin Chloride 5 MG Oral Tablet (Ditropan) TAKE 1 TABLET BY MOUTH TWICE DAILY 180 Tablet 1 Lantus SoloStar 100 UNIT/ML Subcutaneous Solution Pen-injector Inject under the skin 50 Units every night at bedtime . 45 mL 3 Silver sulfADIAZINE 1 % External Cream (Silvadene) Apply topically to affected area daily . Apply to wound 85 g 11 Gabapentin 300 MG Oral Capsule (Neurontin) take [...] INSULIN FOUR TIMES DAILY. 400 Each 3 Current Facility-Administered Medications Medication Dose Route Frequency Provider Last Rate Last Admin Albuterol Sulfate (Proventil) (2.5 MG/3ML) 0.083% inhalation solution 2.5 mg 2.5 mg Nebulizer PRN William Morales PA-C Albuterol Sulfate (Proventil) (5 MG/ML) 0.5% *conc* inhalation solution 2.5 mg 2.5 mg NebulizerPRN William Morales PA-C OBJECTIVE: BP 122/66 | Pulse 55 | Temp 35.8 C (96.4 F) (Infrared ) | SpO2 96% Vitals reviewed and is normotensive afebrile and not tachycardic and not hypoxic General: No acute distress. Neuro: Alert Pleasant & interactive. Respiratory: Good inspiratory effort, no labored breathing. Abd: soft, nontender normoactive bs HEENT: Conjunctivae appear clear. No swelling noted face or lips. Skin: No rash visible on exposed skin areas, normal coloration & appears dry. Psych: Normal affect. Fluent speech. Vanita Dunn MD [address] [address] There are no Patient Instructions on file for this visit. * Tamara Fabian LPN - 06/13/2022 2:03 PM EDT Note created in error. documented in this encounter Nursing Notes * Tamara Fabian LPN - 06/13/2022 1:57 PM EDT Chief Complaint Patient presents with Hospital Follow-Up [facility] documented in this encounter Plan of Treatment Upcoming Encounters Date Type Specialty Care Team Description 06/14/2022 Hem/Onc Treatment Hematology Oncology [place], Chair 6 Hem Onc [facility] [address] [place] [address] 06/21/2022 Telemedicine [facility] Aleyda Campos PA-C [address] [place] [address] Kaylee Barakat, Community Health Pulp Tester [address] [place] [address] 06/24/2022 Office Visit Sleep Disorders Love Francisco DO [address] [facility] [place] [address] 06/28/2022 Home Visit [facility] July Poe, RN [address] [place] [address] 07/05/2022 Home Visit Family Medicine Kaylee Barakat, Community Health Pulp Tester [address] [place] [address] 07/05/2022 Pharmacy Pharmacy Pharmacist2, [facility] [address] 08/23/2022 Office Visit Endocrinology Alberta Duque PA-C [address] [place] [address] 08/30/2022 Office Visit Gastroenterology Lyssa Stout CRNP [address] [place] [address] 09/01/2022 Office Visit Gynecology Obstetrics Concetta Khan MD [address] [facility] [place] [address] 09/14/2022 PulmDiagnostic Pulmonary Function West, Pft [address] [facility] [place] [address] 09/28/2022 Office Visit Pulmonary Reynaldo Marquez MD [address], [place] [id number] 10/26/2022 Office Visit Hematology Oncology Tono Sanchez MD 200 [place] [address] Scheduled Procedures Name Priority Associated Diagnoses Date/Ti [...] of this encounter Implants Implanted Type Area Marble Ceiling Installer Device Identifier Shelf Expiration Date Model / Serial / Lot Microtech Sure Clip Implanted:Qty: 2 on 06/03/2020 by Janis Hatch DO at OR [facility] Clip N/A: Colon 04/21/2022 [facility]-F-26-2 35-C-R / / [id number] documented as of this encounter Visit Diagnoses Diagnosis Abdominal pain, generalized- Primary Need for prophylactic vaccination and inoculation against influenza Other cirrhosis of liver (HCC) DDD (degenerative disc disease), lumbar Degeneration of lumbar or lumbosacral intervertebral disc NAFLD (nonalcoholic fatty liver disease) Other chronic nonalcoholic liver disease Gastroesophageal reflux disease with esophagitis without hemorrhage Impaired mobility and ADLs Mechanical problems with limbs Wheelchair dependent Wheelchair dependence Portal hypertensive gastropathy (HCC) Other specified disorder of stomach and duodenum Hospital discharge follow-up Other follow-up examination documented in this encounter Advance Directives Documents on File Type Date Recorded Patient Fish Smoker 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 WILL AND HEALTH CARE POA Power of Motor Electrician 04/29/2021 12:00 AM TOM R OF [facility] POA Advanced Directive 04/01/2021 1:14 [...] Agents on File Name Relationship Healthcare Agent [facility] p Communication Syed Bustos Spouse Emergency Contact Care Teams Vice President Relationship Specialty Start Date End Date Vanita Dunn MD [address] [place] [address] PCP - General Family Medicine 03/16/21 documented as of this encounter
--- OUTSIDE RECORDS SUMMARY | 2023-05-10 18:09 | External Medical Summary | Summary of Care ---
Author Name Unknown Organization [facility] Address [place] [address] Care Team Providers Care Demurrage Agent Name Role Phone Vanita Dunn MD Primary Care Provid er Reason for Visit * Reason Comments [facility]: Maintenance Encounter Details Date Type Department Care Team Description 06/02/2022 Home Visit [facility], [facility] [address] [facility] [place] [address] July Poe, RN 132 [facility] [place] [address] 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 documented as of this encounter (statuses as of 06/13/2022) Medications Medication Sig Dispensed Refills Start Date End Date Status nystatin (NYSTOP) 296589 UNIT/GM powder Apply topically to affected area 3 times a day. 60 g 1 10/16/2019 Active Dexcom G6 Residential Sales Representative Device Use as directed. To [...] Strip 3 10/29/2020 Active OneTouch Delica Plus [id number] TESTING once daily 100 Each 3 10/29/2020 [...] BEFORE BREAKFAST 90 Capsule 1 07/22/2021 Active Budesonide-Formoter ol Fumarate 160-4.5 MCG/ACT Inhalation Aerosol (Symbicort) Inhale by mouth 2 Puffs 2 times a day . 10.2 g 1 09/27/2021 Active Dexcom G6 Sensor use as directed to test blood sugar 4 times daily. change sensor every 10 days 3 Each 3 09/27/2021 Active traMADol HCl 50 MG Oral Tablet (Ultram)Indications :Acute pain of left shoulder TAKE 1 TABLET BY MOUTH TWICE DAILY NEEDED FOR SEVERE PAIN 20 Tablet 0 11/05/2021 Active Disposable Brief X-LargeIndications: Hypertensive heart disease [...] A1c goal of less than 7.0% ([facility]) inject 4.5mg (1 pen) under the [...] 04/29/2022 Active Gabapentin 300 MG Oral Capsule (Neurontin)Indicati [...] TIMES DAILY. 400 Each 3 05/23/2022 Active Cefuroxime Axetil 250 MG Oral TabletIndications:B ronchitis, complicated Take by mouth 1 Tablet in the morning AND 1 Tablet before bedtime. 20 Tablet 0 05/13/2022 2 Discontinue d(Medicatio n List Clean Up) Cefdinir 300 MG Oral Capsule (Omnicef) 0 05/30/2022 2 Discontinue d(Medicatio n List Clean Up) Sulfamethoxazole-Tr imethoprim 800-160 MG Oral Tablet (Bactrim DS) Take by mouth 1 Tablet in the morning AND 1 Tablet before bedtime. For UTI . 0 06/01/2022 2 Hospital, Clinic, or Other Facility Administered Medication [...] AGREEMENT 01/17/2017 Overview: 5/9/17 Acquired hypothyroidism 12/12/2016 Urinary incontinence due to [...] pain 01/24/2012 01/17/2017 Genetic Sleep Disorder Research Other*[id number] 05/13/2011 04/07/2016 Obstructive sleep apnea 01/18/2011 12/27/19 [...] No Preserve, 6 Mons [employer] Above, IM 06/01/2020,06/05/2019,05/16/2018,10/06/05/2020 Seasonal Influenza, Quadriva lent, No Preserve, IM [...] Reading Time Taken Comments Blood Pressure 108/60 06/02/2022 11:42 AM EDT Pulse 70 06/02/2022 11:42 AM EDT Temperature 37.1 C (98.7 F) 06/02/2022 11:42 AM E DT Respiratory Rate 18 06/02/2022 11:42 AM EDT Oxygen Saturation 92% 06/02/2022 11:42 AM EDT Inhaled Oxygen Concentration - - [...] Progress Notes * July Poe RN - 06/02/2022 11:18 AM EDT [facility] Spiritual Minister [facility] #4 Visit Date: 06/02/2022 Time: 11:18 AM Name: Shaina Bustos : 1955 Current Concerns: Pt has been to ED x 2 in past 11 days First visit was for headache and cough and pt thought she had Covid but was negative She then went to hospital again earlier this week for a pain in her side - cg reports she has MRSA "again" in her urine Started on Bactrim and just picked up last evening and started Right away at start of visit pt adamant that she is going back to the hospital today, states she was told to go back if not feeling any better - however, just started med and has not had enough dosesso far - educated pt on this and cg present and reiterates this - that if she doesn't feel good after the medicine then call [facility] to re-evaluate - pt reports she still wants to go to the hospital then arrives and agrees she should not go back to the hospital Educated that [facility] should be notified and will see her at home for acute issues Pt has pain and has tramadol ordered - advised to give if having severe pain Pt also has not had bowel movement in two days - cg reports she has been giving Lactulose but no bmtoday or yesterday Also reviewed meds and unsure if still on Linzess Call made to pharmacy to review meds - has pill packs but not labeled with what meds are in them Call placed to pharmacy - unable to get through Bowel sounds present and WNL all 4 quadrants She has no specific areas of tenderness Cg picking up dulcolax tabs for pt to take today TE sent to PCP regarding Linzess clarification and need for Tramadol refill. Physical Exam: BP 108/60 | Pulse 70 | Temp 37.1 C (98.7 F) | Resp 18 | SpO2 92% Pain 6 Physical Exam Constitutional: General: She is not in acute distress. Cardiovascular: Rate and Rhythm: Normal rate and regular rhythm. Pulses: Normal pulses. Heart sounds: Normal heart sounds. Pulmonary: Effort: Pulmonary effort is normal. Breath sounds: Normal breath sounds. Abdominal: General: Bowel sounds are normal. Palpations: Abdomen is soft. Skin: General: Skin is warm and dry. Neurological: Mental Status: She is alert. Mental status is at baseline. Problems/Symptoms: Review of Systems Constitutional: Negative. HENT: Negative. Eyes: Negative. Respiratory: Positive for cough. Cardiovascular: Positive for leg swelling. Gastrointestinal: Positive for abdominal pain and constipation. Endocrine: Negative. Genitourinary: Positive for pelvic pain. Current UTI, just started Bactrim Musculoskeletal: Positive for arthralgias and gait problem (non-ambulatory). Psychiatric/Behavioral: Negative. Medication Reconciliation: (See medication list) Does patient take medications as ordered: Yes Patient Well Being: PHQ2/9: No questionnaires available. No change in living situation No falls [facility]-10 Completed this Visit: Yes. [facility]-10: Reason Completed: Status post ED visit/hospital admission [facility]-10 Interventions: Fall education provided, reviewed/provided Fall brochure Advanced Care Planning: Healthcare POA. Patient's Goals of Care: 1. [...] Be sure to take lactulose to have 1-2 bowel movements per day May take Dulcolax tab if no bm in 24 hrs TE to PCP to see if pt should be on Linzess Be sure to take entire course of abx Home Interventions Provided: Home Intervention: Other; Eval Consulted PCP/Specialist Reinforced current Plan of Care, including self-management and medication regimen Patient's 'Red Flags': 1. No bm in 24 hrs 2. Change in mental status 3. Worsening pain Patient Needs to Remember: Call [facility] at with any new or worsening health concerns or problems, red flag symptoms. Referrals Needed: Other none Follow Up: Is there cellular connectivity/connectivity in the home? Yes Does the patient have internet in the home? Yes Patient encouraged to call the intake phone number for all urgent but not emergent issues. Is the patient new to [facility] within the last 30 days? No, Assess appropriateness for upcoming telehealth visits. 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 Provider is in agreement with Plan of Care: Yes Scheduled to follow up with patient per [facility] schedule. July Poe RN 06/02/2022 11:18 AM documented in this encounter Plan of Treatment Upcoming Encounters Date Type Specialty Care Team Description 06/13/2022 Office Visit Family Medicine Vanita Dunn MD [address] [place] [address] 06/14/2022 Hem/Onc Treatment Hematology Oncology Park, Chair 6 Hem Onc Scenery [address] [place] [address] 06/21/2022 [facility]medicine [facility] Aleyda Campos [facility]C [facility] [address] Kaylee Barakat, Community Health Field Inspector [address] [place] [address] 06/24/2022 Office Visit Sleep Disorders Love Francisco DO [facility] [place] [address] 06/28/2022 Home Visit [facility] July Poe RN 132 [facility] [place] [address] 07/05/2022 Home Visit Family Medicine Kaylee Barakat, Community Health Field Inspector [address] [place] [address] 07/05/2022 Pharmacy Pharmacy Pharmacist2, [facility] 200 [place] [address] 08/23/2022 Office Visit Endocrinology Alberta Duque PA-C [address] [place] [address] 08/30/2022 Office Visit Gastroenterology Lyssa Stout CRNP [facility] [place] [address] 09/01/2022 Office Visit Gynecology Obstetrics Concetta Khan MD [address] [place] [id number] 09/14/2022 PulmDiagnostic Pulmonary Function West, Pft [address] [facility] [place] [address] 09/28/2022 Office Visit Pulmonary Reynaldo Marquez MD [address] [place], [place] [phone] 10/26/2022 Office Visit Hematology Oncology Tono Sanchez MD [address] [place] [address] Scheduled Procedures Name Priority Associated Diagnoses Date/Ti [...] of this encounter Implants Implanted Type Area Auditor Supervisor Device Identifier Shelf Expiration Date Model / Serial / Lot Microtech Sure Clip Implanted:Qty: 2 on 06/03/2020 by Janis Hatch DO at OR [facility] Clip N/A: Colon 04/21/2022 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 CARE POA Advanced Directive 04/01/2021 1:14 PM [...] Syed Bustos Spouse Emergency Contact Care Teams Demurrage Agent Relationship Specialty Start Date End Date Vanita Dunn MD [address] [facility] [place] [phone] PCP - General Family Medicine 03/16/21 documented as of this encounter
--- OUTSIDE RECORDS SUMMARY | 2023-05-10 18:09 | External Medical Summary | Summary of Care ---
Author Name Unknown Organization [facility] Address [place] [address] Care Team Providers Care Implementation Advisor Name Role Phone Vanita Dunn MD Primary Care Provid er Reason for Visit * Reason Onset Date Comments [facility]: Maintenance 06/02/2022 Encounter Details Date Type Department Care Team Description 06/02/2022 Telephone [facility] 132 [facility] [place] [address] July Poe, RN 132 [facility] [place] [address] [facility]: Maintenance 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 documented as of this encounter (statuses as of 06/09/2022) Medications Medication Sig Dispensed Refills Start Date End Date Status nystatin (NYSTOP) 740049 UNIT/GM powder Apply topically to affected area 3 times a day. 60 g 1 10/16/2019 Active Dexcom G6 Functional Analyst Device Use as directed. To test blood sugars 4 times a day Dx E11.9 1 Each 0 09/14/2020 Active Dexcom G6 Transmitter Use as directed. To test blood sugars 4 times a day. Change every 90 days. Dx E11.9 1 Each 3 09/14/2020 Active OneTouch Verio In Vitro Strip (Glucose Blood) TESTING once daily 100 Strip 3 10/29/2020 Active OneTouch Delica Plus [id number] TESTING once daily 100 Each 3 10/29/2020 [...] BEFORE BREAKFAST 90 Capsule 1 07/22/2021 Active Budesonide-Formotero l Fumarate 160-4.5 MCG/ACT Inhalation Aerosol (Symbicort) Inhale by mouth 2 Puffs 2 times a day . 10.2 g 1 09/27/2021 Active Dexcom G6 Sensor use as directed to test blood sugar 4 times daily. change sensor every 10 days 3 Each 3 09/27/2021 Active traMADol HCl 50 MG Oral Tablet (Ultram)Indications: Acute pain of left shoulder TAKE 1 TABLET BY MOUTH TWICE DAILY NEEDED FOR SEVERE PAIN 20 Tablet 0 11/05/2021 Active Disposable Brief X-LargeIndications:H ypertensive heart disease [...] 01/16/2022 Active Nadolol 40 MG Oral Tablet (Corgard)Indications :HTN, goal below 140/90 TAKE 1 TABLET BY MOUTH ONCE DAILY 90 Tablet 1 01/18/2022 Active Lidocaine-Prilocaine 2.5-2.5 % External Cream (Emla)Indications:En [...] A1c goal of less than 7.0% ([facility]) inject 4.5mg (1 pen) under the skin [...] 04/29/2022 Active Gabapentin 300 MG Oral Capsule (Neurontin)Indicatio [...] TIMES DAILY. 400 Each 3 05/23/2022 Active Sulfamethoxazole-Tri methoprim 800-160 MG Oral Tablet (Bactrim DS) Take [...] as of this encounter (statuses as of 06/09/2022) Active Problems Problem Noted Date Hypertensive heart [...] as of this encounter (statuses as of 06/09/2022) Resolved Problems Problem Noted Date Resolved Date [...] pain 01/24/2012 01/17/2017 Genetic Sleep Disorder Research Other*[id number] 05/13/2011 04/07/2016 Obstructive sleep apnea 01/18/2011 12/27/19 [...] as of this encounter (statuses as of 06/09/2022) Immunizations Name Administration Dates Next Due COVID-19 [...] Telephone Encounter - Vanita Dunn MD - 06/09/2022 10:57 AM EDT Noted. Will review at her next appt with me in A few days * Telephone Encounter - July Poe RN - 06/02/2022 12:[address] Dunn - Pt has not had bowel movement in two days. Cg and reports that she is taking Lactulose 45ml 2-3x a day. They also report that she has not been taking the Linzess, that "it was stopped" but they cannot recall which doctor stopped it. It is still on her med list. Do you feel she should still be taking it? If so, will need it refilled. Also, she has been having abdominal pain - could be constipation? Or UTI - just started Bactrim DS last evening - went to ED Monday night and cg reports MRSA UTI. Could her tramadol be refilled for this pain? reports none left and she has not had it for some time. Pt is going to take Dulcolax tab for constipation today. Pt wanted to go back to ED but advised to give antibiotic time to work and get bowels moving. I will have [place] call the next couple days and check in and also have PA see early next week for f/u. If you have any other recommendations, please advise. Thank you! documented in this encounter Plan of Treatment Upcoming Encounters Date Type Specialty Care Team Description 06/09/2022 Hem/Onc Treatment Hematology Oncology Park, Chair 4 Hem Onc Scenery [address] [place] [address] 06/10/2022 Home Visit [facility] July Poe RN 132 [facility] [place] [address] 06/13/2022 Office Visit Family Medicine Vanita Dunn MD [address] [place], [place] [address] [phone] 06/21/2022 Telemedicine [facility] Aleyda Campos PA-C 132 [facility] [place] [address] Kaylee Barakat, Community Health Grades 7 8 Tutor [address] [place] [address] 06/24/2022 Office Visit Sleep Disorders Love Francisco DO 132 [facility] [place] [address] 07/05/2022 Home Visit Family Medicine Kaylee Barakat, [facility] Health Grades 7 8 Tutor [address] [place] [address] 07/05/2022 Pharmacy Pharmacy Pharmacist2, [address] [address] 08/23/2022 Office Visit Endocrinology Alberta Duque PA-C [address] [place] [address] 08/30/2022 Office Visit Gastroenterology Lyssa Stout CRNP 132 [facility] [place] [address] 09/01/2022 Office Visit Gynecology Obstetrics Concetta Khan MD 400 [place] [address] 09/14/2022 PulmDiagnostic Pulmonary Function West, Pft [address] [place] [address] 09/28/2022 Office Visit Pulmonary Reynaldo Marquez MD [address] [place] [phone] 10/26/2022 Office Visit Hematology Oncology Tono Sanchez MD [address] [place] [address], [place] [address] Scheduled Procedures Name Priority Associated Diagnoses Date/Ti [...] of this encounter Implants Implanted Type Area Fluxer Device Identifier Shelf Expiration Date Model / Serial / Lot Microtech Sure Clip Implanted:Qty: 2 on 06/03/2020 by Janis Hatch DO at OR [facility] Clip N/A: Colon 04/21/2022 [facility]-F-26-2 35-C-R / / [id number] documented as of this encounter Advance Directives Documents on File Type Date Recorded 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
--- OUTSIDE RECORDS SUMMARY | 2023-05-10 18:10 | External Medical Summary | Summary of Care ---
Author Name Unknown Organization [facility] Address [place] [address] Care Team Providers Care Program Strategist Name Role Phone Vanita Dunn MD Primary Care Provid er Encounter Details Date Type Department Care Team Description 05/29/2022 Scan Encounter [facility] [address] [place] [address] Vanita Dunn MD [address] [place] [address] <No scans attached> 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 documented as of this encounter (statuses as of 06/08/2022) Medications Medication Sig Dispensed Refills Start Date End Date Status nystatin (NYSTOP) 989717 UNIT/GM powder Apply topically to affected area 3 times a day. 60 g 1 10/16/2019 Active Dexcom G6 Insurance Sales Agent Device Use as directed. To test blood sugars 4 times a day Dx E11.9 1 Each 0 09/14/2020 Active Dexcom G6 Transmitter Use as directed. To test blood sugars 4 times a day. Change every 90 days. Dx E11.9 1 Each 3 09/14/2020 Active OneTouch Verio In Vitro Strip (Glucose Blood) TESTING once daily 100 Strip 3 10/29/2020 Active OneTouch Delica Plus [id number] TESTING once daily 100 Each 3 10/29/2020 [...] as of this encounter (statuses as of 06/08/2022) Active Problems Problem Noted Date Hypertensive heart [...] as of this encounter (statuses as of 06/08/2022) Resolved Problems Problem Noted Date Resolved Date [...] pain 01/24/2012 01/17/2017 Genetic Sleep Disorder Research Other*[id number] 05/13/2011 04/07/2016 Obstructive sleep apnea 01/18/2011 12/27/19 [...] as of this encounter (statuses as of 06/08/2022) Immunizations Name Administration Dates Next Due COVID-19 [...] Chair 4 Hem Onc Scenery [address] [place] [address] 06/10/2022 Scheduled Telephone [facility] July Poe RN 132 [facility] [place] [phone] 06/13/2022 Office Visit Family Medicine Vanita Dunn MD [address] [place] [address] 06/24/2022 Office Visit Sleep Disorders Love Francisco DO 132 [facility] [place] [address] 07/05/2022 Home Visit Family Medicine Kaylee Barakat, Community Health Key Worker [address] [place] [address] 07/05/2022 Pharmacy Pharmacy Pharmacist2, [facility] 200 [place] [address] 08/23/2022 Office Visit Endocrinology Alberta Duque PA-C [address] [place] [address] 08/30/2022 Office Visit Gastroenterology Lyssa Stout CRNP 132 [facility] [place] [address] 09/01/2022 Office Visit Gynecology Obstetrics Concetta Khan MD [address] [place] [address] 09/14/2022 PulmDiagnostic Pulmonary Function West, Pft [address] [facility] [place] [address] 09/28/2022 Office Visit Pulmonary Reynaldo Marquez MD [address] [place] [address] 10/26/2022 Office Visit Hematology Oncology Tono Sanchez [facility] [address] Scheduled Procedures Name Priority Associated Diagnoses Date/Ti [...] of this encounter Implants Implanted Type Area Cad Design Engineer Device Identifier Shelf Expiration Date Model / Serial / Lot Microtech Sure Clip Implanted:Qty: 2 on 06/03/2020 by Janis Hatch DO at OR [facility] Clip N/A: Colon 04/21/2022 [facility]-F-26-2 35-C-R / / [id number] documented as of this encounter Advance Directives Documents on File Type Date Recorded Patient Spray Operator 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 WILL AND HEALTH CARE POA Power of Adjunct History Instructor 04/29/2021 12:00 AM TOM R OF SUPERVISOR [facility] POA Advanced Directive 04/01/2021 1:14 [...] Syed Bustos Spouse Emergency Contact Care Teams Program Strategist Relationship Specialty Start Date End Date Vanita Dunn MD [address] [place], [place] [phone] PCP - General Family Medicine 03/16/21 documented as of this encounter
--- OUTSIDE RECORDS SUMMARY | 2023-05-10 18:10 | External Medical Summary | Summary of Care ---
Author Name Unknown Organization [facility] Address [place] [address] Care Team Providers Care General Service Technician Name Role Phone Vanita Dunn MD Primary Care Provid er Reason for Visit * Reason Onset Date Comments [facility]: Maintenance 06/08/2022 Encounter Details Date Type Department Care Team Description 06/08/2022 Telephone [facility], [facility] [address] [facility] [place] [address] [facility], Nurse [facility] [address] [facility] [place] [address] [facility]: Maintenance 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 documented as of this encounter (statuses as of 06/08/2022) Medications Medication Sig Dispensed Refills Start Date End Date Status nystatin (NYSTOP) 867797 UNIT/GM powder Apply topically to affected area 3 times a day. 60 g 1 10/16/2019 Active Dexcom G6 Correctional Probation Officer Device Use as directed. To test blood sugars 4 times a day Dx E11.9 1 Each 0 09/14/2020 Active Dexcom G6 Transmitter Use as directed. To test blood sugars 4 times a day. Change every 90 days. Dx E11.9 1 Each 3 09/14/2020 Active OneTouch Verio In Vitro Strip (Glucose Blood) TESTING once daily 100 Strip 3 10/29/2020 Active OneTouch Delica Plus [id number] TESTING once daily 100 Each 3 10/29/2020 [...] before bedtime. For UTI . 0 06/01/2022 06/08/2022 Active Hospital, Clinic, or Other Facility Administered [...] pain 01/24/2012 01/17/2017 Genetic Sleep Disorder Research Other*[id number] 05/13/2011 04/07/2016 Obstructive sleep apnea 01/18/2011 12/27/19 [...] encounter Miscellaneous Notes * Telephone Encounter - Dorothy Walker LPN - 06/08/2022 9:29 AM EDT TT from inpatient Patient discharging to home today Scheduled as follows; July Poe: 06/10 830am PCP 06/13 telemed with EMILE Page/Aleyda: 06/21 08/1230 documented in this encounter Plan of Treatment Upcoming Encounters Date Type Specialty Care Team Description 06/09/2022 Hem/Onc Treatment Hematology Oncology [place], Chair 4 Hem Onc Scenery [address] [place] [address] 06/10/2022 Home Visit [facility] July Poe RN 132 [facility] [place] [address] 06/13/2022 Office Visit Family Medicine Vanita Dunn MD [address] [place] [address] 06/21/2022 Telemedicine [facility] Aleyda Campos PA-C 132 [facility] [place] [address] Kaylee Barakat, Community Health Technologist Development [address] [place] [address] 06/24/2022 Office Visit [facility] Disorders Love Francisco DO [facility] [place] [address] 07/05/2022 Home Visit Family Medicine Kaylee Barakat, Community Health Technologist Development [address] [place], [place] [phone] 07/05/2022 Pharmacy Pharmacy Pharmacist2, [facility] Sp [address] [place] [address] 08/23/2022 Office Visit Endocrinology Alberta Duque PA-C [address] [place] [address] 08/30/2022 Office Visit Gastroenterology Lyssa Stout CRNP 132 [place] [address] 09/01/2022 Office Visit Gynecology Obstetrics Concetta Khan MD [address] [facility] [place] [id number] 09/14/2022 PulmDiagnostic Pulmonary Function West, Pft 132 [facility] [place] [address] 09/28/2022 Office Visit Pulmonary Reynaldo Marquez MD [address] [place], [place] [phone] 10/26/2022 Office Visit Hematology Oncology Tono Sanchez MD 200 [facility] [place] [address] Scheduled Procedures Name Priority Associated Diagnoses Date/Ti [...] of this encounter Implants Implanted Type Area Appointment Clerk Device Identifier Shelf Expiration Date Model / Serial / Lot Microtech Sure Clip Implanted:Qty: 2 on 06/03/2020 by Janis Hatch DO at OR [facility] Clip N/A: Colon 04/21/2022 [facility]-F-26-2 35-C-R / / [id number] documented as of this encounter Advance Directives Documents on File Type Date Recorded Patient Tar Roofer 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 WILL AND HEALTH CARE POA Power of Rv Technician 04/29/2021 12:00 AM TOM R OF BUILDING GUARD [facility] POA Advanced Directive 04/01/2021 1:14 [...] Syed Bustos Spouse Emergency Contact Care Teams General Service Technician Relationship Specialty Start Date End Date Vanita Dunn MD [address] [place] [address] PCP - General Family Medicine 03/16/21 documented as of this encounter
--- OUTSIDE RECORDS SUMMARY | 2023-05-10 18:10 | External Medical Summary | Summary of Care ---
Author Name Unknown Organization [facility] Address [place] [address] Care Team Providers Care Graphic Art Technician Name Role Phone Vanita Dunn MD Primary Care Provid er Encounter Details Date Type Department Care Team Description 06/08/2022 Scan Encounter [facility] [address] [place] [address] Vanita Dunn MD [address] [place] [address] <No scans attached> 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 documented as of this encounter (statuses as of 06/09/2022) Medications Medication Sig Dispensed Refills Start Date End Date Status nystatin (NYSTOP) 494966 UNIT/GM powder Apply topically to affected area 3 times a day. 60 g 1 10/16/2019 Active Dexcom G6 Beekeeper Device Use as directed. To test blood sugars 4 times a day Dx E11.9 1 Each 0 09/14/2020 Active Dexcom G6 Transmitter Use as directed. To test blood sugars 4 times a day. Change every 90 days. Dx E11.9 1 Each 3 09/14/2020 Active OneTouch Verio In Vitro Strip (Glucose Blood) TESTING once daily 100 Strip 3 10/29/2020 Active OneTouch Delica Plus Luules32N TESTING once daily 100 Each 3 10/29/2020 [...] pain 01/24/2012 01/17/2017 Genetic Sleep Disorder Research Other*[id number] 05/13/2011 04/07/2016 Obstructive sleep apnea 01/18/2011 12/27/19 [...] Chair 4 Hem Onc Scenery [address] [place] [address] 06/10/2022 Home Visit [facility] July Poe RN 132 [facility] [place] [address] 06/13/2022 Office Visit Family Medicine Vanita Dunn MD [address] [place] [address] 06/21/2022 Telemedicine [facility] Aleyda Campos PA-C 132 [facility] [place] [address] Kaylee Barakat, Community Health Accessibility Lift Technician [address] [place] [address] 06/24/2022 Office Visit Sleep Disorders Love Francisco DO 132 [facility] [place] [address] 07/05/2022 Home Visit Family Medicine Kaylee Barakat, Community Health Accessibility Lift Technician [address] [place] [address] 07/05/2022 Pharmacy Pharmacy Pharmacist2, [facility] [address] [place] [address] 08/23/2022 Office Visit Endocrinology Alberta Duque PA-C [address] [place] [address] 08/30/2022 Office Visit Gastroenterology Lyssa Stout CRNP 132 [facility] [place] [address] 09/01/2022 Office Visit Gynecology Obstetrics Concetta Khan MD [address] [place] [address] 09/14/2022 PulmDiagnostic Pulmonary Function West, Pft 132 [facility] [place] [address] 09/28/2022 Office Visit Pulmonary Reynaldo Marquez MD [address] [facility] [id number] 10/26/2022 Office Visit Hematology Oncology Tono Sanchez MD 200 [facility], [place] [phone] Scheduled Procedures Name Priority Associated Diagnoses Date/Ti [...] of this encounter Implants Implanted Type Area Alley Tender Device Identifier Shelf Expiration Date Model / Serial / Lot Microtech Sure Clip Implanted:Qty: 2 on 06/03/2020 by Janis Hatch DO at OR [facility] Clip N/A: Colon 04/21/[address] [facility]-F-26-2 35-C-R / / [id number] documented as of this encounter Advance Directives Documents on File Type Date Recorded Patient House Furnishings Supervisor 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 WILL AND HEALTH CARE POA Power of Driller Hand 04/29/2021 12:00 AM TOM [facility] POA Advanced Directive 04/01/2021 1:14 PM Advanced [...] Agents on File Name Relationship Healthcare Agent [facility] p Communication Syed Bustos Spouse Emergency Contact Care Teams Graphic Art Technician Relationship Specialty Start Date End Date Vanita Dunn MD [address] [place] [address] PCP - General Family Medicine 03/16/21 documented as of this encounter
--- OUTSIDE RECORDS SUMMARY | 2023-05-10 18:11 | External Medical Summary | Summary of Care ---
Author Name Unknown Organization [facility] Address [place] [address] Care Team Providers Care Gambling Counsellor Name Role Phone Vanita Dunn MD Primary Care Provid er Encounter Details Date Type Department Care Team Description 06/04/2022 Scan Encounter [facility] [address] [place] [address] Vanita Dunn MD [address] [place] [address] <No scans attached> 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 documented as of this encounter (statuses as of 06/06/2022) Medications Medication Sig Dispensed Refills Start Date End Date Status nystatin (NYSTOP) 044843 UNIT/GM powder Apply topically to affected area 3 times a day. 60 g 1 10/16/2019 Active Dexcom G6 Java Manager Device Use as directed. To test blood sugars 4 times a day Dx E11.9 1 Each 0 09/14/2020 Active Dexcom G6 Transmitter Use as directed. To test blood sugars 4 times a day. Change every 90 days. Dx E11.9 1 Each 3 09/14/2020 Active OneTouch Verio In Vitro Strip (Glucose Blood) TESTING once daily 100 Strip 3 10/29/2020 Active OneTouch Delica Plus Dbkwsc84V TESTING once daily 100 Each 3 10/29/2020 [...] as of this encounter (statuses as of 06/06/2022) Active Problems Problem Noted Date Hypertensive heart [...] as of this encounter (statuses as of 06/06/2022) Resolved Problems Problem Noted Date Resolved Date [...] pain 01/24/2012 01/17/2017 Genetic Sleep Disorder Research Other*[id number] 05/13/2011 04/07/2016 Obstructive sleep apnea 01/18/2011 12/27/19 [...] as of this encounter (statuses as of 06/06/2022) Immunizations Name Administration Dates Next Due COVID-19 [...] Encounters Date Type Specialty Care Team Description 06/07/2022 Telemedicine [facility] Joselin Dawson, ZAK 132 [facility] [place] [address] Kaylee Barakat, Community Health Lead Machinist [address] [place] [address] 06/07/2022 Office Visit Pharmacy Pharmacist1, [facility] Sp [address] [place] [address] 06/09/2022 Hem/Onc Treatment Hematology Oncology [place], Chair 4 Hem Onc Scenery [address] [place] [address] 06/10/2022 Scheduled Telephone [facility] July Poe RN 132 [facility] [place] [address] 06/24/2022 Office Visit Sleep Disorders Love Francisco DO [address] [place] [address] 07/05/2022 Home Visit Family Medicine Kaylee Barakat, Community Health Lead Machinist [address] [place] [address] 08/23/2022 Office Visit Endocrinology Alberta Duque PA-C [address] [place] [address] 08/30/2022 Office Visit Gastroenterology Lyssa Stout CRNP 132 [facility] [place] [address] 09/01/2022 Office Visit Gynecology Obstetrics Concetta Khan MD [address] [place] [address] [place] [id number] 09/14/2022 PulmDiagnostic Pulmonary Function West, Pft [address] [place] [address] 09/28/2022 Office Visit Pulmonary Reynaldo Marquez MD [address] [facility], [place] [address] 10/26/2022 Office Visit Hematology Oncology Tono Sanchez MD 200 [place] [address] Scheduled Procedures Name Priority Associated Diagnoses Date/Ti [...] of this encounter Implants Implanted Type Area Operating Room Registered Nurse Device Identifier Shelf Expiration Date Model / Serial / Lot Microtech Sure Clip Implanted:Qty: 2 on 06/03/2020 by Janis Hatch DO at OR [facility] Clip N/A: Colon 04/21/2022 [facility]-F-26-2 35-C-R / / [id number] documented as of this encounter Advance Directives Documents on File Type Date Recorded Patient Residential Substance Abuse Counselor 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 WILL AND HEALTH CARE POA Power of Java Scala Developer 04/29/2021 12:00 AM TOM R OF OIL TANKER [facility] POA Advanced Directive 04/01/2021 1:14 [...] File Name Relationship [facility] Syed Bustos Spouse Emergency Contact Care Teams Gambling Counsellor Relationship Specialty Start Date End Date Vanita Dunn MD [address] [place] [address] PCP - General Family Medicine 03/16/21 documented as of this encounter
--- OUTSIDE RECORDS SUMMARY | 2023-05-10 18:11 | External Medical Summary | Summary of Care ---
Author Name Unknown Organization [facility] Address [place] [address] Care Team Providers Care Interpretive Naturalist Name Role Phone Vanita Dunn MD Primary Care Provid er Reason for Visit * Reason Onset Date Comments Advice 05/31/2022 Encounter Details Date Type Department Care Team Description 05/31/2022 Telephone [facility] [address] [place] [address] Vanita Dunn MD [address] [place] [address] Advice 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 documented as of this encounter (statuses as of 06/08/2022) Medications Medication Sig Dispensed Refills Start Date End Date Status nystatin (NYSTOP) 309562 UNIT/GM powder Apply topically to affected area 3 times a day. 60 g 1 10/16/2019 Active Dexcom G6 Salesperson Women'S Hats Device Use as directed. To test blood sugars 4 times a day Dx E11.9 1 Each 0 09/14/2020 Active Dexcom G6 Transmitter Use as directed. To test blood sugars 4 times a day. Change every 90 days. Dx E11.9 1 Each 3 09/14/2020 Active OneTouch Verio In Vitro Strip (Glucose Blood) TESTING once daily 100 Strip 3 10/29/2020 Active OneTouch Delica Plus Myxcac44Q TESTING once daily 100 Each 3 10/29/2020 [...] hemoglobin A1c goal of less than 7.0% ([facility]) inject 4.5mg (1 pen) under [...] pain 01/24/2012 01/17/2017 Genetic Sleep Disorder Research Other*[id number] 05/13/2011 04/07/2016 Obstructive sleep apnea 01/18/2011 12/27/19 [...] Telephone Encounter - Vanita Dunn MD - 06/08/2022 8:07 AM EDT Called - spoke with pt's sister in law Mariely who lives with her in their house - she says lexus is int hospital for abdominal pain and pneumonia. Getting better. I told Mariely to relay to lexus that I'm thinking about her and we can discuss her concern at her nextfollow up. AG * Telephone Encounter - THAD Peng - 05/31/2022 5:51 PM EDT Pt called asking for a message to be sent to Dr. Dunn. Pt states that she would like to speak with the provider. Pt states that she wants to discuss an appt that she had today. Please call to advise. documented in this encounter Plan of Treatment Upcoming Encounters Date Type Specialty Care Team Description 06/09/2022 Hem/Onc Treatment Hematology Oncology [place], Chair 4 Hem Onc [facility] 200 [facility], [place] [address] 06/10/2022 Scheduled Telephone [facility] July Poe RN 132 [facility] [place] [address] 06/24/2022 Office Visit Sleep Disorders Love Francisco DO [address] [place] [address] 07/05/2022 Home Visit Family Medicine Kaylee Barakat, Community Health Human Resources Operations Coordinator [address] [place] [address] 07/05/2022 Pharmacy Pharmacy Pharmacist2, [facility] 200 [place] [address] 08/23/2022 Office Visit Endocrinology Alberta Duque PA-C [address] [place] [address] 08/30/2022 Office Visit Gastroenterology Lyssa Stout CRNP [address] [place] [address] 09/01/2022 Office Visit Gynecology Obstetrics Concetta Khan MD [address] [place] [phone] 09/14/2022 PulmDiagnostic Pulmonary Function West, Pft 132 [facility] [place] [address] 09/28/2022 Office Visit Pulmonary Reynaldo Marquez MD [address] [facility] [place] [address] 10/26/2022 Office Visit Hematology Oncology Tono Sanchez MD 200 [place] [address] Scheduled Procedures Name Priority Associated Diagnoses Date/Ti [...] of this encounter Implants Implanted Type Area Ply Bander Device Identifier Shelf Expiration Date Model / Serial / Lot Microtech Sure Clip Implanted:Qty: 2 on 06/03/2020 by Janis Hatch DO at OR [facility] Clip N/A: Colon 04/21/2022 [facility]-F-26-2 35-C-R / / [id number] documented as of this encounter Advance Directives Documents on File Type Date Recorded Patient Block Inspector 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 WILL LIVING WILL AND HEALTH CARE POA [facility] 04/29/2021 12:00 AM TOM R COUNT INCLUDES THE [facility] POA Advanced Directive 04/01/2021 1:14 PM Advanced [...] Syed Bustos Spouse Emergency Contact Care Teams Interpretive Naturalist Relationship Specialty Start Date End Date Vanita Dunn MD [address], [place] [phone] PCP - General Family Medicine 03/16/21 documented as of this encounter
--- OUTSIDE RECORDS SUMMARY | 2023-05-10 18:11 | External Medical Summary | Summary of Care ---
Author Name Unknown Organization [facility] Address [place] [address] Care Team Providers Care Keno Clerk Name Role Phone Vanita Dunn MD Primary Care Provid er Reason for Visit * Reason Onset Date Comments [facility]: Maintenance 06/02/2022 Encounter Details Date Type Department Care Team Description 06/02/2022 Telephone [facility], [facility] 132 [facility] [place] [address] July Poe, RN 132 [facility] [place] [address] [facility]: Maintenance 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 documented as of this encounter (statuses as of 06/08/2022) Medications Medication Sig Dispensed Refills Start Date End Date Status nystatin (NYSTOP) 440599 UNIT/GM powder Apply topically to affected area 3 times a day. 60 g 1 10/16/2019 Active Dexcom G6 Edi Architect Device Use as directed. To test blood sugars 4 times a day Dx E11.9 1 Each 0 09/14/2020 Active Dexcom G6 Transmitter Use as directed. To test blood sugars 4 times a day. Change every 90 days. Dx E11.9 1 Each 3 09/14/2020 Active OneTouch Verio In Vitro Strip (Glucose Blood) TESTING once daily 100 Strip 3 10/29/2020 Active OneTouch Delica Plus Svvfoh00V TESTING once daily 100 Each 3 10/29/2020 [...] less than 7.0% ([facility]) inject 4.5mg (1 pen) under the [...] pain 01/24/2012 01/17/2017 Genetic Sleep Disorder Research Other*[id number] 05/13/2011 04/07/2016 Obstructive sleep apnea 01/18/2011 12/27/19 [...] and get bowels moving. I will have [facility] call the next couple days and check in and also have PA see early next week for f/u. If you have any other recommendations, please advise. Thank you! documented in this encounter Plan of Treatment Upcoming Encounters Date Type Specialty Care Team Description 06/09/2022 Hem/Onc Treatment Hematology Oncology [place], Chair 4 Hem Onc [facility] 200 [facility] [place] [address] 06/10/2022 Scheduled Telephone [facility] July Poe RN [address] [place] [address] 06/24/2022 Office Visit Sleep Disorders Love Francisco, 132 [place] [address] 07/05/2022 Home Visit Family Medicine Kaylee Barakat, Community Health Contaminated Land Consultant [address] [place] [address] 07/05/2022 Pharmacy Pharmacy Pharmacist2, [facility] [address] [place] [address] 08/23/2022 Office Visit Endocrinology Alberta Duque PA-C [address] [place] [address] 08/30/2022 Office Visit Gastroenterology Lyssa Stout CRNP [address] [place] [address] 09/01/2022 Office Visit Gynecology Obstetrics Concetta Khan MD [address] [place], [place] [phone] 09/14/2022 PulmDiagnostic Pulmonary Function West, Pft 132 [place] [address] 09/28/2022 Office Visit Pulmonary Reynaldo Marquez MD [address] [place] [facility] [place] [address] 10/26/2022 Office Visit Hematology Oncology Tono Sanchez MD [address] [place] [address] Scheduled Procedures Name Priority Associated Diagnoses Date/Ti [...] of this encounter Implants Implanted Type Area Dinkey Engine Operator Device Identifier Shelf Expiration Date Model / Serial / Lot Microtech Sure Clip Implanted:Qty: 2 on 06/03/2020 by Janis Hatch DO at OR [facility] Clip N/A: Colon 04/21/2022 [facility]-F-26-2 35-C-R / / [id number] documented as of this encounter Advance Directives Documents on File Type Date Recorded Patient Gas Combustion Engineer 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 AND HEALTH CARE POA Power of Livestock Counter 04/29/2021 12:00 AM TOM R OF TUBE DEPATCHER HEALTH CARE POA Advanced Directive 04/01/2021 1:14 [...] Bustos Spouse Emergency Contact Care Teams Keno Clerk Relationship Specialty Start Date End Date Vanita Dunn MD [address] [place] [phone] PCP - General Family Medicine 03/16/21 documented as of this encounter
--- OUTSIDE RECORDS SUMMARY | 2023-05-10 18:12 | External Medical Summary | Summary of Care ---
Author Name Unknown Organization [facility] Address [place] [address] Care Team Providers Care It Technical Specialist Name Role Phone Vanita Dunn MD Primary Care Provid er Encounter Details Date Type Department Care Team Description 06/04/2022 Scan Encounter [facility] [address] [place] [address] Vanita Dunn MD [address] [place] [address] <No scans attached> 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 documented as of this encounter (statuses as of 06/06/2022) Medications Medication Sig Dispensed Refills Start Date End Date Status nystatin (NYSTOP) 070556 UNIT/GM powder Apply topically to affected area 3 times a day. 60 g 1 10/16/2019 Active Dexcom G6 Accounting Specialist Device Use as directed. To test blood sugars 4 times a day Dx E11.9 1 Each 0 09/14/2020 Active Dexcom G6 Transmitter Use as directed. To test blood sugars 4 times a day. Change every 90 days. Dx E11.9 1 Each 3 09/14/2020 Active OneTouch Verio In Vitro Strip (Glucose Blood) TESTING once daily 100 Strip 3 10/29/2020 Active OneTouch Delica Plus [id number] TESTING once daily 100 Each 3 10/29/2020 [...] goal of less than 7.0% ([facility]) inject 4.5mg (1 pen) under the skin once weekly 6 mL 5 02/22/2022 Active Aspirin 81 MG Oral Tablet Chewable CHEW AND SWALLOW 1 TABLET BY MOUTH ONCE DAILY 30 Tablet 8 03/12/2022 Active NovoLOG FlexPen 100 UNIT/ML Subcutaneous Solution Pen-injectorIndicati ons:Type 2 diabetes mellitus with hemoglobin A1c goal of less than 8.0% ([facility]) 35 Units at breakfast, 39 Units [...] pain 01/24/2012 01/17/2017 Genetic Sleep Disorder Research Other*[id number] 05/13/2011 04/07/2016 Obstructive sleep apnea 01/18/2011 12/27/19 [...] [facility] Joselin Dawson, ZAK [address] [facility] [place] [address] Kaylee Barakat, Community Health Media Arts Professor [address] [place] [address] 06/07/2022 Office Visit Pharmacy Pharmacist1, [facility] Sp [address] [place] [address] 06/09/2022 Hem/Onc Treatment Hematology Oncology Park, Chair 4 Hem Onc Scenery [address] [place] [address] 06/10/2022 Scheduled Telephone [facility] July Poe RN [address] [facility] [place] [address] 06/24/2022 Office Visit Sleep Disorders Love Francisco DO [address] [place] [address] 07/05/2022 Home Visit Family Medicine Kaylee Barakat, Community Health Media Arts Professor [address] [place] [address] 08/23/2022 Office Visit Endocrinology Alberta Duque PA-C [address] [place] [address] 08/30/2022 Office Visit Gastroenterology Lyssa Stout CRNP [address] [facility] [place] [address] 09/01/2022 Office Visit Gynecology Obstetrics Concetta Khan MD [address] [place] [address] [place] [id number] 09/14/2022 PulmDiagnostic Pulmonary Function West, Pft [address] [place] [address] 09/28/2022 Office Visit Pulmonary Reynaldo Marquez MD [address] [facility], [place] [address] 10/26/2022 Office Visit Hematology Oncology Tono Sanchez MD 200 [place] [address] Scheduled Procedures Name Priority Associated Diagnoses Date/Ti [...] of this encounter Implants Implanted Type Area Pressure Controller Device Identifier Shelf Expiration Date Model / Serial / Lot Microtech Sure Clip Implanted:Qty: 2 on 06/03/2020 by Janis Hatch DO at OR [facility] Clip N/A: Colon 04/21/2022 [facility]-F-26-2 35-C-R / / [id number] documented as of this encounter Advance Directives Documents on File Type Date Recorded Patient Rack Production Worker 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 WILL AND HEALTH CARE POA Power of Field Crops Harvest Machine Operator 04/29/2021 12:00 AM TOM R OF TRACK BROOM OPERATOR HEALTH CARE POA Advanced Directive 04/01/2021 [...] Agents on File Name Relationship [facility] Communication Syed Bustos Spouse Emergency Contact Care Teams It Technical Specialist Relationship Specialty Start Date End Date Vanita Dunn MD [address] [place] [address] PCP - General Family Medicine 03/16/21 documented as of this encounter
--- OUTSIDE RECORDS SUMMARY | 2023-05-10 18:13 | External Medical Summary | Summary of Care ---
Author Name Unknown Organization [place] [address] Care Team Providers Care Hot Dimpling Machine Operator Name Role Phone Vanita Dunn MD Primary Care Provid er Reason for Visit * Reason Onset Date Comments Appointment 06/02/2022 Encounter Details Date Type Department Care Team Description 06/02/2022 Telephone [facility], [facility] [facility] [place] [address] Services, Scheduling [address] [place] [address] Appointment 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 documented as of this encounter (statuses as of 06/02/2022) Medications Medication Sig Dispensed Refills Start Date End Date Status nystatin (NYSTOP) 696774 UNIT/GM powder Apply topically to affected area 3 times a day. 60 g 1 10/16/2019 Active Dexcom G6 Emergency Medicine Physician Device Use as directed. To test blood sugars 4 times a day Dx E11.9 1 Each 0 09/14/2020 Active Dexcom G6 Transmitter Use as directed. To test blood sugars 4 times a day. Change every 90 days. Dx E11.9 1 Each 3 09/14/2020 Active OneTouch Verio In Vitro Strip (Glucose Blood) TESTING once daily 100 Strip 3 10/29/2020 Active OneTouch Delica Plus [id number] TESTING once daily 100 Each 3 10/29/2020 [...] than 8.0% ([facility]) Inject under the skin 50 Units every [...] less than 7.0% ([facility]) USE TO INJECT INSULIN FOUR TIMES DAILY. [...] as of this encounter (statuses as of 06/02/2022) Active Problems Problem Noted Date Hypertensive heart [...] as of this encounter (statuses as of 06/02/2022) Resolved Problems Problem Noted Date Resolved Date [...] pain 01/24/2012 01/17/2017 Genetic Sleep Disorder Research Other*[id number] 05/13/2011 04/07/2016 Obstructive sleep apnea 01/18/2011 12/27/19 [...] as of this encounter (statuses as of 06/02/2022) Immunizations Name Administration Dates Next Due COVID-19 [...] * Telephone Encounter - THAD Coleman - 06/02/2022 3:21 PM EDT Per request, call to pt/spouse they preferred an appt next , schedule a telemed for 06/07 at 1pm, pt/spouse aware and agreeable. documented in this encounter Plan of Treatment Upcoming Encounters Date Type Specialty Care Team Description 06/03/2022 Scheduled Telephone [facility], [facility] [address] [facility] [place] [address] 06/04/2022 Scheduled Telephone [facility], Nurse [facility] [address] [facility] [place] [address] 06/07/2022 Telemedicine [facility] Joselin Dawson CRNP [address] [facility] [place] [address] Kaylee Barakat, Community Health Fixed Assets Accountant [address] [place] [address] 06/07/2022 Office Visit Pharmacy Pharmacist1, [facility] Sp [address] [place] [address] 06/09/2022 Hem/Onc Treatment Hematology Oncology Park, Chair 4 Hem Onc [facility] 200 [place] [address] 06/10/2022 Scheduled Telephone [facility] July Poe RN [address] [facility] [place] [address] 06/24/2022 Office Visit Sleep Disorders Love Francisco DO [address] [place] [address] 07/05/2022 Home Visit Family Medicine Kaylee Barakat, Community Health Fixed Assets Accountant Formerly named [facility] [place] [address] 08/23/2022 Office Visit Endocrinology Alberta Duque PA-C [address] [place] [address] 08/30/2022 Office Visit Gastroenterology Lyssa Stout CRNP 132 [place] [address] 09/01/2022 Office Visit Gynecology Obstetrics Concetta Khan MD [address] [facility] [place] [phone] 09/14/2022 PulmDiagnostic Pulmonary Function West, Pft 132 [facility] [place] [address] 09/28/2022 Office Visit Pulmonary Reynaldo Marquez MD [address] [facility] [place] [phone] 10/26/2022 Office Visit Hematology Oncology Tono Sanchez MD 200 [place] [address] Scheduled Procedures Name Priority Associated Diagnoses Date/Ti [...] of this encounter Implants Implanted Type Area Engineering Clerk Device Identifier Shelf Expiration Date Model / Serial / Lot Microtech Sure Clip Implanted:Qty: 2 on 06/03/2020 by Janis Hatch, DO at OR [facility] Clip N/A: Colon 04/21/2022 [facility]-F-26-2 35-C-R / / [id number] documented as of this encounter Advance Directives Documents on File Type Date Recorded Patient Orchestra Conductor 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 WILL AND HEALTH CARE POA Power of Workforce Management Consultant 04/29/2021 12:00 AM TOM R OF JUNIOR LINUX ADMINISTRATOR HEALTH CARE POA Advanced Directive 04/01/2021 [...] Bustos Spouse Emergency Contact Care Teams Hot Dimpling Machine Operator Relationship Specialty Start Date End Date Vanita Dunn MD [address] [place] [address] PCP - General Family Medicine 03/16/21 documented as of this encounter
--- OUTSIDE RECORDS SUMMARY | 2023-05-10 18:13 | External Medical Summary | Summary of Care ---
Author Name Unknown Organization [facility] Address [place] [address] Care Team Providers Care Railroad Dispatcher Name Role Phone Vanita Dunn MD Primary Care Provid er Reason for Visit * Reason Onset Date Comments [facility]: Maintenance 06/04/2022 Encounter Details Date Type Department Care Team Description 06/04/2022 Scheduled Telephone [facility], [facility] 132 [facility] [place] [address] [facility], Nurse [facility] 132 [facility] [place] [address] 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 documented as of this encounter (statuses as of 06/04/2022) Medications Medication Sig Dispensed Refills Start Date End Date Status nystatin (NYSTOP) 058061 UNIT/GM powder Apply topically to affected area 3 times a day. 60 g 1 10/16/2019 Active Dexcom G6 Dormitory Keeper Device Use as directed. To test blood sugars 4 times a day Dx E11.9 1 Each 0 09/14/2020 Active Dexcom G6 Transmitter Use as directed. To test blood sugars 4 times a day. Change every 90 days. Dx E11.9 1 Each 3 09/14/2020 Active OneTouch Verio In Vitro Strip (Glucose Blood) TESTING once daily 100 Strip 3 10/29/2020 Active OneTouch Delica Plus [id number] TESTING once daily 100 Each 3 10/29/2020 [...] as of this encounter (statuses as of 06/04/2022) Active Problems Problem Noted Date Hypertensive heart [...] as of this encounter (statuses as of 06/04/2022) Resolved Problems Problem Noted Date Resolved Date [...] pain 01/24/2012 01/17/2017 Genetic Sleep Disorder Research Other*[id number] 05/13/2011 04/07/2016 Obstructive sleep apnea 01/18/2011 12/27/19 18 Overview: 08/18/11 -- BIPAP auto: max IPAP to 18, min EPAP 10. SD card in 3 months. 06/29/11 Auto BIPAP -- max IPAP 15, min EPAP 9 with pressure support of 4. P ICD-10 update of inactive term Lumbosacral spondylosis [...] as of this encounter (statuses as of 06/04/2022) Immunizations Name Administration Dates Next Due COVID-19 [...] encounter Miscellaneous Notes * Telephone Encounter - Polly Hernandez RN - 06/04/2022 12:05 PM EDT tpc to pt Reports pain in upper abd last evening Denies any urinary symptoms Last bm 2days ago. gave additional laxatives this morning and he feels she should go tonight. Denies any other needs or concerns Will call [facility] with any urgent but nonemergent needs. documented in this encounter Plan of Treatment Upcoming Encounters Date Type Specialty Care Team Description 06/07/2022 Telemedicine [facility] Joselin Dawson CRNP [address] [place] [address] Kaylee Barakat, Community Health Tar Pot Man [address] [place] [address] 06/07/2022 Office Visit Pharmacy Pharmacist1, [facility] Sp [address] [place] [address] 06/09/2022 Hem/Onc Treatment Hematology Oncology [place], Chair 4 Hem Onc Scenery [address] [place] [facility] [place] [address] 06/10/2022 Scheduled Telephone [facility] July Poe RN 132 [place] [address] 06/24/2022 Office Visit Sleep Disorders Love Francisco DO [facility] [address] 07/05/2022 Home Visit Family Medicine Kaylee Barakat, Community Health Tar [place] Man [address] [place] [address] 08/23/2022 Office Visit Endocrinology Alberta Duque PA-C [address] [place] [address] 08/30/2022 Office Visit Gastroenterology Lyssa Stout CRNP 132 [facility] [place] [address] 09/01/2022 Office Visit Gynecology Obstetrics Concetta Khan MD 400 [place], [place] [phone] 09/14/2022 PulmDiagnostic Pulmonary Function West, Pft [facility] [place] [address] 09/28/2022 Office Visit Pulmonary Reynaldo Marquez MD [address] [facility], [place] [phone] 10/26/2022 Office Visit Hematology Oncology Tono Sanchez MD 200 [facility] [place], [place] [phone] Scheduled Procedures Name Priority Associated Diagnoses Date/Ti [...] of this encounter Implants Implanted Type Area Marketing Communications Associate Device Identifier Shelf Expiration Date Model / Serial / Lot Microtech Sure Clip Implanted:Qty: 2 on 06/03/2020 by Janis Hatch DO at OR [facility] Clip N/A: Colon 04/21/2022 [facility]-F-26-2 35-C-R / / [id number] documented as of this encounter Advance Directives Documents on File Type Date Recorded Patient Lens Marker 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 LIVING WILL AND HEALTH CARE POA Power Upworthy 04/29/2021 12:00 AM TOM R [facility] POA Advanced Directive 04/01/2021 1:14 PM Advanced [...] Agents on File Name Relationship Healthcare Agent [place] p Communication Syed Bustos Spouse Emergency Contact Care Teams Railroad Dispatcher Relationship Specialty Start Date End Date Vanita Dunn MD [address] [place], [place] [phone] PCP - General Family Medicine 03/16/21 documented as of this encounter
--- OUTSIDE RECORDS SUMMARY | 2023-05-10 18:13 | External Medical Summary | Summary of Care ---
Author Name Unknown Organization [place] [address] Care Team Providers Care Operating Table Assembler Name Role Phone Vanita Dunn MD Primary Care Provid er Reason for Visit * Reason Comments No Show [facility]: Maintenance Encounter Details Date Type Department Care Team Description 05/31/2022 Telemedicine [facility], [facility] 132 [place] [address] Aleyda Campos PA-C [address] [place] [address] Kaylee Barakat, Community Health Vocational Ed Instructor [address] [place] [address] Urinary incontinence* 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 documented as of this encounter (statuses as of 05/31/2022) Medications Medication Sig Dispensed Refills Start Date End Date Status nystatin (NYSTOP) 430156 UNIT/GM powder Apply topically to affected area 3 times a day. 60 g 1 10/16/2019 Active Dexcom G6 Home Staging Specialist Device Use as directed. To test blood sugars 4 times a day Dx E11.9 1 Each 0 09/14/2020 Active Dexcom G6 Transmitter Use as directed. To test blood sugars 4 times a day. Change every 90 days. Dx E11.9 1 Each 3 09/14/2020 Active OneTouch Verio In Vitro Strip (Glucose Blood) TESTING once daily 100 Strip 3 10/29/2020 Active OneTouch Delica Plus [id number] TESTING once daily 100 Each 3 10/29/2020 [...] than 7.0% ([facility]) inject 4.5mg (1 pen) under the skin once weekly 6 mL 5 02/22/2022 Active Aspirin 81 MG Oral Tablet Chewable CHEW AND SWALLOW 1 TABLET BY MOUTH ONCE DAILY 30 Tablet 8 03/12/2022 Active NovoLOG FlexPen 100 UNIT/ML Subcutaneous Solution Pen-injectorIndicatio ns:Type 2 diabetes mellitus with hemoglobin A1c goal of less than 8.0% ([facility]) 35 Units at breakfast, 39 Units before lunch, 45 Units before supper 120 mL 3 04/06/2022 Active Oxybutynin Chloride 5 MG Oral Tablet (Ditropan) TAKE 1 TABLET BY MOUTH TWICE DAILY 180 Tablet 1 04/10/2022 Active Lantus SoloStar 100 UNIT/ML Subcutaneous Solution Pen-injectorIndicatio ns:Type 2 diabetes mellitus with hemoglobin A1c goal of less than 8.0% ([facility]) Inject under the skin 50 Units every [...] AT BEDTIME 90 Tablet 3 05/12/2022 Active Cefuroxime Axetil 250 MG Oral TabletIndications:Bro nchitis, complicated Take by mouth 1 Tablet in the morning AND 1 Tablet before bedtime. 20 Tablet 0 05/13/2022 Active Benzonatate 200 MG Oral CapsuleIndications:Br onchitis, [...] TIMES DAILY. 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 05/13/2011 04/07/2016 Obstructive sleep apnea 01/18/2011 12/27/19 [...] as of this encounter (statuses as of 05/31/2022) Immunizations Name Administration Dates Next Due COVID-19 [...] as of this encounter Progress Notes * [facility] Vocational Ed Instructor - 05/31/2022 4:12 PM EDT Patient not home LMOM Home number Kaylee ROBBINSA Electronically signed by Kaylee Barakat [facility]ly [facility] Health Vocational Ed Instructor at 05/31/2022 4:13 PM EDT documented in this encounter Plan of Treatment Upcoming Encounters Date Type Specialty Care Team Description 06/01/2022 Office Visit Pharmacy Pharmacist1, [facility] Sp [address] [place] [address] 06/02/2022 Home Visit [facility] July Poe, RN [address] [place] [address] 06/09/2022 Hem/Onc Treatment Hematology Oncology [place], Chair 4 Hem Onc Scenery [address] [place] [address] 06/24/2022 Office Visit Sleep Disorders Love Francisco DO [address] [place] [address] 07/05/2022 Home Visit Family Medicine Kaylee Barakat, Community Health Vocational Ed Instructor [address] [place] [address] 08/23/2022 Office Visit Endocrinology Alberta Duque PA-C [address] [place] [address] 08/30/2022 Office Visit Gastroenterology Lyssa Stout CRNP [address] [place] [address] 09/01/2022 Office Visit Gynecology Obstetrics Con[facility]etta Khan MD [facility] [place] [address] 09/14/2022 PulmDiagnostic Pulmonary Function West, Pft [address] [place] [address] 09/28/2022 Office Visit Pulmonary Reynaldo Marquez MD [address] [place] [phone] 10/26/2022 Office Visit Hematology Oncology Tono Sanchez MD 200 [facility] [place] [address] Scheduled Procedures Name Priority Associated Diagnoses Date/Ti [...] of this encounter Implants Implanted Type Area Manager Social Media Device Identifier Shelf Expiration Date Model / Serial / Lot Microtech Sure Clip Implanted:Qty: 2 on 06/03/2020 by Janis Hatch DO at OR [facility] Clip N/A: Colon 04/21/2022 [facility]-F-26-2 35-C-R / / [id number] documented as of this encounter Visit Diagnoses Diagnosis Urinary incontinence- Primary Unspecified urinary incontinence documented in this encounter Advance Directives Documents on File Type Date Recorded 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
--- OUTSIDE RECORDS SUMMARY | 2023-05-10 18:13 | External Medical Summary | Summary of Care ---
Author Name Unknown Organization [facility] Address [place] [address] Care Team Providers Care Senior Db2 Systems Programmer Name Role Phone Vanita Dunn MD Primary Care Provid er Reason for Visit * Reason Onset Date Comments [facility]: Maintenance 06/03/2022 Encounter Details Date Type Department Care Team Description 06/03/2022 Scheduled Telephone [facility], [facility] [address] [facility] [place] [address] Coordinator, [facility] [address] [facility] [place] [address] 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 documented as of this encounter (statuses as of 06/03/2022) Medications Medication Sig Dispensed Refills Start Date End Date Status nystatin (NYSTOP) 039703 UNIT/GM powder Apply topically to affected area 3 times a day. 60 g 1 10/16/2019 Active Dexcom G6 Patternmaker Apprentice Wood Device Use as directed. To test blood sugars 4 times a day Dx E11.9 1 Each 0 09/14/2020 Active Dexcom G6 Transmitter Use as directed. To test blood sugars 4 times a day. Change every 90 days. Dx E11.9 1 Each 3 09/14/2020 Active OneTouch Verio In Vitro Strip (Glucose Blood) TESTING once daily 100 Strip 3 10/29/2020 Active OneTouch Delica Plus [id number] TESTING once daily 100 Each 3 10/29/2020 [...] as of this encounter (statuses as of 06/03/2022) Active Problems Problem Noted Date Hypertensive heart [...] as of this encounter (statuses as of 06/03/2022) Resolved Problems Problem Noted Date Resolved Date [...] pain 01/24/2012 01/17/2017 Genetic Sleep Disorder Research Other*[id number] 05/13/2011 04/07/2016 Obstructive sleep apnea 01/18/2011 12/27/19 [...] as of this encounter (statuses as of 06/03/2022) Immunizations Name Administration Dates Next Due COVID-19 [...] Telephone Encounter - Marie Johnson LPN - 06/03/2022 11:39 AM EDT [facility] Telephonic Nurse Follow-Up Call [facility] Subprogram: Focused Care Management (3-9 months) Follow Up Call Type: 24 hour follow up Acute issue requiring follow-up call: Other: constipation uti Objective: VITALS ACROSS ENCOUNTERS 06/02/2022 05/31/2022 05/31/2022 05/24/2022 05/19/2022 BP 108/60 128/70 - 114/44 105/72 Pulse 70 - - 80 78 Weight - 113.4 kg - - - BMI - 50.47 - - - BODY MASS INDEX - - 50.49 - - Lab Results Component Value Date BLOOD, URINE - [facility] Large (A) 03/30/2022 PROTEIN - [facility] 6.5 04/28/2022 PROTEIN, URINE - [facility] 100 (A) 03/30/2022 ESTERASE, URINE - [facility] Large (A) 03/30/2022 WBC AUTO - [facility] 3.67 (L) 05/19/2022 WBC, URINE - [facility] 50+ (A) 03/30/2022 NITRITE, URINE - [facility] Negative 03/30/2022 QUANT URINE CULTURE GROWTH 03/30/2022 Multiple juan manuel suggests contamination or colonization Lab Results Component Value Date WBC AUTO - [facility] 3.67 (L) 05/19/2022 HGB - [facility] 10.4 (L) 05/19/2022 PLATELET AUTO - [facility] 84 (L) 05/19/2022 Lab Results Component Value Date SODIUM - [...] symptoms but not at baseline Current Concerns: Spoke to patient. Feeling little better today. Had bowel movement last night. Denies any SOB, chestpain or abdominal pain today. Denies fever. Staying hydrated. Encouraged to call with any urgent issues. Disposition: Weekend call scheduled Future Visits Scheduled: Future Appointments-next 60 days Date/Time Provider Specialty Dept Phone 06/03/2022 1:00 PM [facility] Billet Bed Operator [facility] [phone] 06/04/2022 1:00 PM Nurse [facility] [phone] 06/07/2022 1:00 PM Kaylee Barakat, Community Health Management Liaison; [facility] [phone] 06/07/2022 2:30 PM [facility] Pharmacist1 Pharmacy [phone] 06/09/2022 1:00 PM Chair 4 Hem Onc [facility] Hematology Oncology [phone] 06/10/2022 8:30 AM July Poe RN [facility] [phone] 06/24/2022 1:20 PM Love Francisco, Sleep Disorders [phone] 07/05/2022 12:00 PM Kaylee Barakat Community Health Management Liaison Family Medicine [phone] 08/23/2022 2:00 PM (Arrive by 1:45 PM) Alberta Duque PA-C Endocrinology [phone] 08/30/2022 1:30 PM (Arrive by 1:15 PM) ZAK [facility] Gastroenterology [phone] 09/01/2022 1:30 PM (Arrive by 1:15 PM) Concetta Khan MD Gynecology Obstetrics [phone] 09/14/2022 2:30 PM Pft [facility] Pulmonary Function [phone] 09/28/2022 3:20 PM (Arrive by 3:05 PM) Reynaldo Marquez MD Pulmonary [phone] 10/26/2022 1:15 PM (Arrive by 1:00 PM) Tono Sanchez MD Hematology Oncology [phone] Marie Johnson LPN documented in this encounter Plan of Treatment Upcoming Encounters Date Type Specialty Care Team Description 06/04/2022 Scheduled Telephone [facility] [place], Nurse Abreu Merritt 132 [place] [address] 06/07/2022 Telemedicine [facility] Joselin Dawson CRNP 132 [place] [address] Kaylee Barakat, Community Health Management Liaison [address] [place] [address] 06/07/2022 Office Visit Pharmacy Pharmacist1, [facility] [address] [place] [address] 06/09/2022 Hem/Onc Treatment Hematology Oncology Park, Chair 4 Hem Onc Scenery [address] [place] [address] 06/10/2022 Scheduled Telephone [facility] July Poe RN 132 [place] [address] 06/24/2022 Office Visit Sleep Disorders Love Francisco DO 132 [facility] [place] [address] 07/05/2022 Home Visit Family Medicine Kaylee Barakat, Community Health Management Liaison [address] [place] [address] 08/23/2022 Office Visit Endocrinology Alberta Duque PA-C [address] [place] [address] 08/30/2022 Office Visit Gastroenterology Lyssa Stout, ZAK 132 [facility] [place] [address] 09/01/2022 Office Visit Gynecology Obstetrics Concetta Khan MD 400 [place] [address] 09/14/2022 PulmDiagnostic Pulmonary Function West, Pft [address] [place] [address] 09/28/2022 Office Visit Pulmonary Reynaldo Marquez MD [address] [facility], [place] [id number] 10/26/2022 Office Visit Hematology Oncology Tono Sanchez MD 200 [place] [address] Scheduled Procedures Name Priority Associated Diagnoses Date/Ti [...] of this encounter Implants Implanted Type Area Plugger Device Identifier Shelf Expiration Date Model / Serial / Lot Microtech Sure Clip Implanted:Qty: 2 on 06/03/2020 by Janis Hatch, DO at OR [facility] Clip N/A: Colon 04/21/2022 [facility]-F-26-2 35-C-R / / [id number] documented as of this encounter Advance Directives Documents on File Type Date Recorded 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
--- OUTSIDE RECORDS SUMMARY | 2023-05-10 18:14 | External Medical Summary | Summary of Care ---
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 Details Date Type Department Care Team Description 05/31/2022 Office Visit Gynecology/Obstetrics [facility] [address] [place] [address] Concetta Khan MD [address] [place], [place] [id number] PMB (postmenopausal bleeding)*; Iron deficiency anemia due to chronic blood loss 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 documented as of this encounter (statuses as of 05/31/2022) Medications Medication Sig Dispensed Refills Start Date End Date Status nystatin (NYSTOP) 023121 UNIT/GM powder Apply topically to affected area 3 times a day. 60 g 1 10/16/2019 Active Dexcom G6 Glass Furnace Tender Device Use as directed. To test blood sugars 4 times a day Dx E11.9 1 Each 0 09/14/2020 Active Dexcom G6 Transmitter Use as directed. To test blood sugars 4 times a day. Change every 90 days. Dx E11.9 1 Each 3 09/14/2020 Active OneTouch Verio In Vitro Strip (Glucose Blood) TESTING once daily 100 Strip 3 10/29/2020 Active OneTouch Delica Plus [id number] TESTING once daily 100 Each 3 10/29/2020 [...] less than 7.0% ([facility]) inject 4.5mg (1 pen) under the skin once weekly 6 mL 5 02/22/2022 Active Aspirin 81 MG Oral Tablet Chewable CHEW AND SWALLOW 1 TABLET BY MOUTH ONCE DAILY 30 Tablet 8 03/12/2022 Active NovoLOG FlexPen 100 UNIT/ML Subcutaneous Solution Pen-injectorIndicatio ns:Type 2 diabetes mellitus with hemoglobin A1c goal of less than 8.0% ([facility]) 35 Units at breakfast, 39 Units [...] 05/02/2012 09/13/2021 Diverticulosis of colon 05/02/2012 02/14/20 Constipation 05/02/2012 09/13/2021 Internal hemorrhoids 04/12/2012 07/02/2014 [...] pain 01/24/2012 01/17/2017 Genetic Sleep Disorder Research Other*[id number] 05/13/2011 04/07/2016 Obstructive sleep apnea 01/18/2011 12/27/19 [...] Sign Reading Time Taken Comments Blood Pressure 128/70 05/31/2022 1:39 PM EDT Pulse - - Temperature - - Respiratory Rate - - Oxygen Saturation - - Inhaled Oxygen Concentration - - Weight 113.4 kg (250 lb) 05/31/2022 1:39 PM EDT Height 149.9 cm (4' 11") 05/31/2022 1:39 PM EDT Body Mass Index 50.49 05/31/2022 1:39 PM EDT documented in this encounter Functional [...] as of this encounter Progress Notes * Concetta Khan MD - 05/31/2022 1:51 PM EDT Patient Name: Shaina Bustos Reason for Visit: Postmenopausal bleeding (HPI): Patient is a 66-year-old postmenopausal female who presents for post up check. Patient is status post diagnostic hysteroscopy, dilation and curettage and insertion of Mirena IUD for postmenopausal bleeding on 02/13/2022. Patient is accompanied by her . Patient states that she has not noticed any improvement in her vaginal bleeding pattern. Patient was reassured that it takes3 - 6 months to see the full effect of the Mirena IUD. Patient was informed further that only 20% of patients will stop bleeding completely by the end of one year. I reiterated that given her multiple comorbidities, she is a poor surgical candidate. Additionally, patient has complains of having a sore on her bottom. She mentions being seen at [facility] recently. Records are not available for my review. Review of the patient's chart shows her most recent hemoglobin was 10.4g/dl. Past medical history: Past Medical History: Diagnosis Date Anemia Anxiety [...] goal of less than 8.0% ([facility]) 09/26/2013 ICD-10 update of inactive term Past surgical history: Past Surgical History: Procedure Laterality Date BONE DEBRIDEMENT, FIRST 20 CM2 Right 04/16/2020 DEBRIDEMENT SKIN SUBCUTANEOUS TISSUE MUSCLE AND BONE performed by Josh Vazquez MD [place] [facility] [place]ERY 04/20/1982 COLONOSCOPY 04/21/2009 repeat in 10 years COLONOSCOPY, DIAGNOSTIC (RECTUM) 10/04/2016 normal bx, repeat 10 yrs/[facility] COLONOSCOPY, DIAGNOSTIC (RECTUM) N/A 06/03/2020 internal hemorrhoids/biopsies show adenomatous polyps/recall 5 years/COLONOSCOPY FLEXIBLE PROXIMAL DIAGNOSTIC performed by Janis Hatch DO at OR [facility] COLONOSCOPY, DIAGNOSTIC (RECTUM) 03/17/2020 poor prep / [facility] DENTAL SURGERY PROCEDURE NEC wisdom teeth x 4 DILATION AND CURETTAGE (D&C) EGD, FLEXIBLE, DIAGNOSTIC 10/04/2016 gastritis/[facility] EGD, FLEXIBLE, DIAGNOSTIC 01/11/2018 eso varices, retained food, repeat 1 yr/[facility] EGD, FLEXIBLE, DIAGNOSTIC N/A 06/03/2020 severe erosive esophagitis/non-bleeding grade II esophageal varices/gastritis/biopsies show inflammatory changes/repeat 3-4 months/ESOPHAGOGASTRODUODENOSCOPY (EGD), FLEXIBLE, TRANSORAL, DIAGNOSTIC per formed by Janis Hatch DO at [facility] EGD, FLEXIBLE, DIAGNOSTIC 11/27/2019 eso varices, portal hypertensive gastropathy, gastritis / [facility] EGD, FLEXIBLE, DIAGNOSTIC N/A 08/05/2020 large amount of food in stomach/repeat 1.5 years/ESOPHAGOGASTRODUODENOSCOPY (EGD), FLEXIBLE, TRANSORAL, DIAGNOSTIC performed by Janis Hatch DO at [facility] EGD, FLEXIBLE, DIAGNOSTIC N/A 03/10/2021 ESOPHAGOGASTRODUODENOSCOPY (EGD), FLEXIBLE, TRANSORAL, DIAGNOSTIC performed by Kris Blankenship MD at [place] [facility] [place]STEROSCOPY W/BIOPSY AND/OR POLYPECTOMY W/WO D&C N/A 12/27/2021 HYSTEROSCOPY WITH BIOPSY AND/OR POLYPECTOMY WITH OR WITHOUT D&C performed by Concetta Khan MD at OR [facility] HYSTEROSCOPY W/BIOPSY AND/OR POLYPECTOMY W/WO D&C N/A 02/14/2022 HYSTEROSCOPY WITH BIOPSY AND/OR POLYPECTOMY WITH OR WITHOUT D&C performed by Concetta Khan MD at OR [facility] INSERT INTRAUTERINE DEVICE (IUD) N/A 02/14/2022 INSERTION OF INTRAUTERINE DEVICE performed by Concetta Khan MD at OR [facility] IR VENOUS ACCESS MEDIPORT 10/05/2020 PELVIS/HIP JOINT SURGERY NEC teenager aid in walking REMOVE CERVIX CONE W/LOOP ELECTRODE N/A 12/27/2021 LOOP ELECTROSURGERY EXCISION PROCEDURE performed by Concetta Khan MD at OR [facility] REPAIR/GRAFT ACHILLES TENDON age 40 aid in walking Obstetrical history: OB History Para Term AB Living 1 1 1 1 SAB IAB Ectopic Multiple Live Births 1 # Outcome Date GA Lbr Mike/2nd Weight Sex Delivery Anes PTL Lv 1 Term M CS-LVertical TOM Obstetric Comments c /s x 1 Family history: Family History Problem Relation Age of Onset Heart Disorder Father of CT at age 61 Diabetes Father Heart Disorder Mother of CT age 72 Heart Disorder Sister Mi at age 46 Hypertension Sister Cancer No significant family history Arthritis No significant family history Mental Disorder No significant family history Stroke No significant family history Social history: Social History Tobacco Use Smoking status: Never Smoker Smokeless tobacco: Never Used Substance Use Topics Alcohol use: Not Currently Comment: rare Vaping/E-Cigarette Use Vaping/E-Cigarette Use Never User Vaping/E-Cigarette Substances Nicotine No Other No Flavoring No THC No Cannabidiol (CBD) No Vaping/E-Cigarette Devices Disposable No Pre-filled or Refillable Cartridge No Refillable Tank No Pre-filled Pod No Allergy: Review of patient's allergies indicates: Allergen Reactions Adhesive Tape Itching Pcn [Penicillins] Rash Perflutren Protein A Microsph Definity-lower back pain ROS: As in the HPI LABS: Results for orders placed or performed in visit on 05/19/22 HEMOGLOBIN A1C Result Value Ref Range Hemoglobin A1C 7.4 (H) 4.0 - 5.6 % Estimated Average Glucose 166 (H) <126 mg/dL BASIC METABOLIC PANEL Result Value Ref Range BUN 18 6 - 20 mg/dL Creatinine 0.8 0.5 - 1.0 mg/dL Estimated Glomerular Filtration Rate 83 >=60 mL/min Sodium 143 135 - 146 mmol/L Potassium 4.0 3.5 - 5.1 mmol/L Chloride 111 (H) 98 - 107 mmol/L CO2 23 22 - 32 mmol/L Anion Gap 9 7 - 15 mmol/L Glucose 144 (H) 70 - 120 mg/dL Calcium 9.2 8.4 - 10.2 mg/dL TSH WITH FREE T4 IF INDICATED Result Value Ref Range TSH 0.04 (L) 0.27 - 4.20 uIU/mL CBC Result Value Ref Range WBC 3.67 (L) 4.00 - 10.80 K/uL RBC 2.84 3.85 - 5.15 M/uL HGB 10.4 (L) 12.0 - 15.3 g/dL HCT 32.0 (L) 36.0 - 45.2 % MCV 112.7 81.5 - 97.5 fL MCH 36.6 27.0 - 34.0 pg MCHC 32.5 32.0 - 36.0 g/dL RDW 18.0 11.5 - 15.5 % PLT 84 (L) 140 - 400 K/uL MPV DIFFERENTIAL, AUTOMATED Result Value Ref Range WBC 3.67 (L) 4.00 - 10.80 K/uL Neutrophils % 58.1 40.0 - 75.0 % Lymphocytes % 20.7 18.0 - 42.0 % Monocytes % 12.5 (H) 1.0 - 11.0 % Eosinophils % 7.9 (H) 0.0 - 6.0 % Basophils % 0.8 0.0 - 2.0 % Absolute Neutrophils 2.13 1.80 - 7.70 K/uL Absolute Lymphocytes 0.76 (L) 1.00 - 4.80 K/ul Absolute Monocytes 0.46 0.00 - 1.10 K/uL Absolute Eosinophils 0.29 0.00 - 0.70 K/uL Absolute Basophils 0.03 0.00 - 0.20 K/uL DIFFERENTIAL, TECHNOLOGIST REVIEW Result Value Ref Range nRBCs Anisocytosis Slight (A) None Seen Elliptocytes Few (A) None Seen Macrocytosis Present (A) None Seen Tear Drop Cells Few (A) None Seen T4, FREE Result Value Ref Range T4, Free 2.2 (H) 0.9 - 1.7 ng/dL *Note: Due to a large number of results and/or encounters for the requested time period, some results have not been displayed. A complete set of results can be found in Results Review. PHYSICAL EXAMINATION Vital signs Filed Vitals: 05/31/22 1339 BP: 128/70 Weight: 113.4 kg (250 lb) Height: 1.499 m (4' 11") Well developed. Well nourished Obese white female in no acute distress HEENT : WNL LUNG: CTA bilat. No wheezes, crackles, or rales HEART; S-1, S-2; Regular ,rythm and rate . No murmurs GI; Soft. Non-tender. Non-distended.No guarding,no rebound tenderness. No Hernias : deferred Neurologic: grossly intact Extremity: No Cyanoses, clubbing or edema. No lesions on either extremeties Psych: Alert, awake and oriented X 3. Normal gait A/P (N95.0) PMB (postmenopausal bleeding) (primary encounter diagnosis) Plan: Patient was reassured that a common side effect of Mirena IUD is irregular vaginal bleeding. However. by 6 months that she be a 90% reduction in vaginal bleeding. Patient was advised that she is not a good surgical candidate. Patient will follow-up in 3 months. Patient verbalized understanding and agreed to plan. (D50.0) Iron deficiency anemia due to chronic blood loss Plan: Patient will continue iron supplementation. Concetta Khan MD documented in this encounter Nursing Notes * Pham Chavez LPN - 05/31/2022 1:40 PM EDT Pt presents s/p diagnostic hysteroscopy, D&C, and Mirena insertion 02/13/2022. Pt reports she is still having vaginal bleeding every day since surgery. Denies any new concerns. Pham Chavez LPN documented in this encounter Plan of Treatment Upcoming Encounters Date Type Specialty Care Team Description 06/01/2022 Office Visit Pharmacy Pharmacist1, [facility] [address] [place] [address] 06/02/2022 Home Visit [facility] July Poe, RN 132 [facility] [place] [address] 06/09/2022 Hem/Onc Treatment Hematology Oncology [place], Chair 4 Hem Onc Scenery [address] [place] [address] 06/24/2022 Office Visit Sleep Disorders Love Francisco DO [address] [place] [address] 07/05/2022 Home Visit Family Medicine Kaylee Barakat, Community Health Slipcover Cutter [address] [place] [address] 08/23/2022 Office Visit Endocrinology Alberta Duque PA-C [address] [place] [address] 08/30/2022 Office Visit Gastroenterology Lyssa Stout CRNP [address] [place] [address] 09/01/2022 Office Visit Gynecology Obstetrics Concetta Khan MD [address] [facility] [place] [address] 09/14/2022 PulmDiagnostic Pulmonary Function West, Pft [address] [place] [address] 09/28/2022 Office Visit Pulmonary Reynaldo Marquez MD [address] [place] [phone] 10/26/2022 Office Visit Hematology Oncology Tono Sanchez MD [address] [place] [address], [place] [address] Scheduled Procedures Name Priority Associated Diagnoses Date/Ti [...] of this encounter Implants Implanted Type Area Seat Joiner Chainstitch Device Identifier Shelf Expiration Date Model / Serial / Lot Microtech Sure Clip Implanted:Qty: 2 on 06/03/2020 by Janis Hatch DO at OR [facility] Clip N/A: Colon 04/21/2022 [facility]-F-26-2 35-C-R / / [id number] documented as of this encounter Visit Diagnoses Diagnosis PMB (postmenopausal bleeding)- Primary Postmenopausal bleeding 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 (chronic) documented in this encounter Advance Directives Documents on File Type Date Recorded 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
--- OUTSIDE RECORDS SUMMARY | 2023-05-10 18:15 | External Medical Summary | Summary of Care ---
Author Name Unknown Organization [facility] Address [place] [address] Care Team Providers Care Benzene Worker Name Role Phone Vanita Dunn MD Primary Care Provid er Encounter Details Date Type Department Care Team Description 05/22/2022 Scan Encounter [facility] [address] [place] [address] Vanita Dunn MD [address] [place] [address] <No scans attached> 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 documented as of this encounter (statuses as of 05/25/2022) Medications Medication Sig Dispensed Refills Start Date End Date Status nystatin (NYSTOP) 575270 UNIT/GM powder Apply topically to affected area 3 times a day. 60 g 1 10/16/2019 Active Dexcom G6 Therapeutic Specialist Device Use as directed. To test blood sugars 4 times a day Dx E11.9 1 Each 0 09/14/2020 Active Dexcom G6 Transmitter Use as directed. To test blood sugars 4 times a day. Change every 90 days. Dx E11.9 1 Each 3 09/14/2020 Active OneTouch Verio In Vitro Strip (Glucose Blood) TESTING once daily 100 Strip 3 10/29/2020 Active OneTouch Delica Plus [id number] TESTING once daily 100 Each 3 10/29/2020 [...] as of this encounter (statuses as of 05/25/2022) Active Problems Problem Noted Date Hypertensive heart [...] as of this encounter (statuses as of 05/25/2022) Resolved Problems Problem Noted Date Resolved Date [...] pain 01/24/2012 01/17/2017 Genetic Sleep Disorder Research Other*[id number] 05/13/2011 04/07/2016 Obstructive sleep apnea 01/18/2011 12/27/19 [...] as of this encounter (statuses as of 05/25/2022) Immunizations Name Administration Dates Next Due COVID-19 [...] Encounters Date Type Specialty Care Team Description 05/30/2022 Office Visit Gynecology Obstetrics Susan Jara MD [facility] [place] [address] 05/31/2022 Telemedicine [facility] Aleyda Campos PA-C [address] [facility] [place] [address] Kaylee Barakat, Community Health Inking Machine Tender [address] [place] [address] 06/01/2022 Office Visit Pharmacy Pharmacist1, [facility] [address] [place] [address] 06/02/2022 Home Visit [facility] July Poe RN [address] [facility] [place] [address] 06/09/2022 Hem/Onc Treatment Hematology Oncology [place], Chair 4 Hem Onc Scenery [address] [facility] [facility] [address] 06/24/2022 Office Visit Sleep Disorders Love Francisco DO 132 [facility] [place] [address] 07/04/2022 Office Visit Gynecology Obstetrics Concetta Khan MD [address] [place], [place] [phone] 07/05/2022 Home Visit Family Medicine Kaylee Barakat, Community Health Inking Machine Tender [address] [place] [address] 08/23/2022 Office Visit Endocrinology Alberta Duuqe PA-C [address], [place] [id number] 08/30/2022 Office Visit Gastroenterology Lyssa Stout CRNP [address] [facility] [place] [address] 09/14/2022 PulmDiagnostic Pulmonary Function West, Pft [address] [place] [address] 09/28/2022 Office Visit Pulmonary Reynaldo Marquez MD [address] [place] [id number] 10/26/2022 Office Visit Hematology Oncology Tono Sanchez MD 200 [place] [address] Scheduled Procedures Name Priority Associated Diagnoses Date/Ti [...] 12 and Over 07/27/2021 07/27/2020, 12/09/2015, 10/20/2014 DIABETES-FOOT EXAM 04/05/2022 04/05/2021, 0 11/06/2019, 01/09/2019, [...] 05/26/2008 Hepatitis B Completed 09/24/2018, 04/11, 03/26/2018 COVID-19 Vaccine Completed 01/05/2022, , 12/21/2020, Additional history exists GARDASIL-HPV IMMUNIZATION SERIES Aged Out No longer eligible based on patient's age to complete this topic MENINGOCOCCAL (MENACTRA/MENVEO) Aged Out No longer eligible based on patient's age to complete this topic documented as of this encounter Implants Implanted Type Area Pain Coordinator Device Identifier Shelf Expiration Date Model / Serial / Lot Microtech Sure Clip Implanted:Qty: 2 on 06/03/2020 by Janis Hatch DO at OR [facility] Clip N/A: Colon 04/21/2022 [facility]-F-26-2 35-C-R / / [id number] documented as of this encounter Advance Directives Documents on File Type Date Recorded Patient Sequins Stringer 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 WILL AND HEALTH CARE POA Power of Duplicate Maker 04/29/2021 12:00 AM TOM [facility] Advanced Directive 04/01/2021 1:14 PM Advanced Directive [...] Agents on File Name Relationship Healthcare Agent [facility] p Communication Syed Bustos Spouse Emergency Contact Care Teams Benzene Worker Relationship Specialty Start Date End Date Vanita Dunn MD [address] [place] [address] PCP - General Family Medicine 03/16/21 documented as of this encounter
--- OUTSIDE RECORDS SUMMARY | 2023-05-10 18:15 | External Medical Summary | Summary of Care ---
Author Name Unknown Organization [place] [address] Care Team Providers Care Director Of Teacher Education Name Role Phone Vanita Dunn MD Primary Care Provid er Reason for Visit * Reason Comments [facility]: Maintenance Encounter Details Date Type Department Care Team Description 05/24/2022 Home Visit Care Coordination [address] [place] [address] Kaylee Barakat, Community Health Seasonal Recruiter [address] [place] [address] 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 documented as of this encounter (statuses as of 05/24/2022) Medications Medication Sig Dispensed Refills Start Date End Date Status nystatin (NYSTOP) 662355 UNIT/GM powder Apply topically to affected area 3 times a day. 60 g 1 10/16/2019 Active Dexcom G6 Shellfish Bed Worker Device Use as directed. To test blood sugars 4 times a day Dx E11.9 1 Each 0 09/14/2020 Active Dexcom G6 Transmitter Use as directed. To test blood sugars 4 times a day. Change every 90 days. Dx E11.9 1 Each 3 09/14/2020 Active OneTouch Verio In Vitro Strip (Glucose Blood) TESTING once daily 100 Strip 3 10/29/2020 Active OneTouch Delica Plus [id number] TESTING once daily 100 Each 3 10/29/2020 [...] of less than 8.0% ([facility]) 35 Units at breakfast, 39 [...] as of this encounter (statuses as of 05/24/2022) Active Problems Problem Noted Date Hypertensive heart [...] as of this encounter (statuses as of 05/24/2022) Resolved Problems Problem Noted Date Resolved Date [...] shingles vaccine 12/09/20152015 Bilateral shoulder pain 08/25/2015 09/27/20 16 Bilateral shoulder pain 07/16/2015 06/07/20 16 [...] pain 01/24/2012 01/17/2017 Genetic Sleep Disorder Research Other*[id number] 05/13/2011 04/07/2016 Obstructive sleep apnea 01/18/2011 12/27/19 [...] as of this encounter (statuses as of 05/24/2022) Immunizations Name Administration Dates Next Due COVID-19 [...] Sign Reading Time Taken Comments Blood Pressure 114/44 05/24/2022 3:43 PM EDT Pulse 80 05/24/2022 3:43 PM EDT Temperature 36.6 C (97.9 F) 05/24/2022 3:43 PM ED T Respiratory Rate 20 05/24/2022 3:43 PM EDT Oxygen Saturation 95% 05/24/2022 3:43 PM EDT Inhaled Oxygen Concentration - - [...] this encounter Progress Notes * Kaylee Barakat, [facility] Health Seasonal Recruiter - 05/24/2022 3:49 PM EDT Community Health Seasonal Recruiter Visit Date: 05/24/2022 Time: 10:49 AM Name: Shaina Bustos : 1955 Referral Source: preconstruction manager Source of Information: Patient Spoken language: Bahraini Patient can read in Bahraini: Yes. Waste Disposal Leakage Tester needed: No. COVID-19 screening completed: Yes Vitals: Vital signs completed: Yes, vital signs within normal range. BP 114/44 (BP Site: Left Arm, BP Position: Supine) | Pulse 80 | Temp 36.6 C (97.9 F) | Resp 20 | SpO2 95% Condition Changes: Changes in health or social status since last visit: Patient has a caregiver M-F She and patient are concerned regarding patient is still having vaginal bleeding.Described as period like bleeding most days this has been ongoing for almost a full year. Patient is being followed bySuzie tom BOTTOM LOADER. Patient is using her cpap each night.Reported that the mask keeps sliding down her face .After inspection the mask looks to be old and worn.Cargiver is calling [facility] patient to request a new face mask. The open area on patients bottom crease of her buttock is healing well smaller in size Denied any falls The patient has new concerns since last visit: Yes, (I just want the vaginal bleeding to stop ) Medications: Medication review completed? No, . Does the patient have barriers to medication adherence? No. Patient reports difficulty paying for medications or might in the future: No. Telehealth: This is a telehealth visit: No. Symptoms Surveys and Evaluations: MAHC10 completed this visit: Yes. Score is 4 or more? Yes, notified Provider/Groundman Last flowsheet values for MAHC10: Age 65+: 1 (01/13/2022 1:00 PM) Diagnosis (3 or more co-existing): 1 (01/13/2022 1:00 PM) Prior history of falls within 3 months: 0 (01/13/2022 1:00 PM) Incontinence: 1 (01/13/2022 1:00 PM) Visual impairment: 1 (01/13/2022 1:00 PM) Impaired functional mobility: 1 (01/13/2022 1:00 PM) Environmental hazards: 1 (01/13/2022 1:00 PM) Poly Pharmacy (4 or more prescriptions - any type): 1 (01/13/2022 1:00 PM) Pain affecting level of function: 0 (01/13/2022 1:00 PM) Cognitive impairment: 0 (01/13/2022 1:00 PM) Score - a score of 4 or more is considered at risk for fallin (01/13/2022 1:00 PM) Plan: Reinforced care plan established by care team . Continue meds as prescribed/reviewed Use nebulizer 4x a day as needed Finish entire course of abxs APAP prn for discomfort/fever Cough and deep breathing Low Na, CCD diet Frequent repositioning, every 2 hours CG 5 days a week, 8-9 hrs each day Svetlana lift for transfers *[facility] coordinator is working on getting the patient a new lift pad Patient's 'Red Flags': 1. S/s of UTI - Fever, confusion 2. Increased SOB 3. Fever Follow Up: Patient encouraged to call the intake phone number for all urgent but not emergent issues. Scheduled to follow up with patient in 6 weeks. Cy [facility] Seasonal Recruiter 05/24/2022 10:49 AM documented in this encounter Plan of Treatment Upcoming Encounters Date Type Specialty Care Team Description 05/30/2022 Office Visit Gynecology Obstetrics Susan Jara MD [address] [facility] [place] [address] 05/31/2022 Telemedicine [facility] Aledya Campos PA-C 132 [facility] [place] [address] Kaylee Barakat Community Health Seasonal Recruiter [address], [place] [phone] 06/01/2022 Office Visit Pharmacy Pharmacist1, [facility] Sp [address] [place], [place] [address] 06/02/2022 Home Visit [facility] July Poe, RN [address] [facility] [place] [address] 06/09/2022 Hem/Onc Treatment Hematology Oncology [place], Chair 4 Hem Onc Scenery [address] [place] [address] 06/24/2022 Office Visit Sleep Disorders Love Francisco DO 132 [facility] [place] [address] 07/04/2022 Office Visit Gynecology Obstetrics Concetta Khan MD [address] [place], [place] [address] [address] 07/05/2022 Home Visit Family Medicine Kaylee Barakat, Community Health Seasonal Recruiter [address] [place] [address] 08/23/2022 Office Visit Endocrinology Alberta Duque PA-C [address] [place] [address] 08/30/2022 Office Visit Gastroenterology Lyssa Stout CRNP [address] [facility] [place] [address] 09/14/2022 PulmDiagnostic Pulmonary Function West, Pft [address] [place] [address] 09/28/2022 Office Visit Pulmonary Reynaldo Marquez MD [address] [place] [address] 10/26/2022 Office Visit Hematology Oncology Tono Sanchez MD [address] [place] [address], [place] [address] Scheduled Procedures Name Priority Associated Diagnoses Date/Ti [...] of this encounter Implants Implanted Type Area Security Architect Device Identifier Shelf Expiration Date Model / Serial / Lot Microtech Sure Clip Implanted:Qty: 2 on 06/03/2020 by Janis Hatch DO at OR [facility] Clip N/A: Colon 04/21/2022 [facility]-F-26-2 35-C-R / / [id number] documented as of this encounter Advance Directives Documents on File Type Date Recorded Patient County Health Officer 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 WILL AND HEALTH CARE POA Power of Botany Laboratory Assistant 04/29/2021 12:00 AM TOM R OF CLIENT TECHNOLOGIES SPECIALIST HEALTH CARE POA Advanced Directive 04/01/2021 1:14 [...] Spouse Emergency Contact Care Teams Director Of Teacher Education Relationship Specialty Start Date End Date Vanita Dunn MD [address], [place] [phone] PCP - General Family Medicine 03/16/21 documented as of this encounter"
--- OUTSIDE RECORDS SUMMARY | 2023-05-10 18:15 | External Medical Summary | Summary of Care ---
Author Name Unknown Organization [place] [address] Care Team Providers Care Solderer Furnace Name Role Phone Vanita Dunn MD Primary Care Provid er Encounter Details Date Type Department Care Team Description 05/20/2022 Telephone Endocrinology, [place] [address] [place], [place] [phone] Alberta Duque PA-C [address] [place] [address] 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 documented as of this encounter (statuses as of 05/31/2022) Medications Medication Sig Dispensed Refills Start Date End Date Status nystatin (NYSTOP) 060637 UNIT/GM powder Apply topically to affected area 3 times a day. 60 g 1 0 Active Dexcom G6 Marking Machine Operator Device Use as directed. To [...] Strip 3 1 Active OneTouch Delica Plus [id number] TESTING once daily 100 Each 3 1 [...] DAILY DIRECTED 16 g 5 1 Active Linzess 290 MCG Oral Capsule (linaCLOtide) TAKE 1 CAPSULE BY MOUTH ONCE DAILY BEFORE BREAKFAST 90 Capsule 1 1 Active Budesonide-Formoter ol Fumarate 160-4.5 MCG/ACT Inhalation Aerosol (Symbicort) Inhale by mouth 2 Puffs 2 times a day . 10.2 g 1 2 Active Dexcom G6 Sensor use as directed to test blood sugar 4 times daily. change sensor every 10 days 3 Each 3 2 Active traMADol HCl 50 MG Oral Tablet (Ultram)Indications :Acute pain of left shoulder TAKE 1 TABLET BY MOUTH TWICE DAILY NEEDED FOR SEVERE PAIN 20 Tablet 0 2 Active Disposable Brief X-LargeIndications: Hypertensive heart [...] ONCE DAILY 90 Tablet 1 2 Active Lidocaine-Prilocain e 2.5-2.5 % External [...] AT BEDTIME 90 Tablet 3 2 Active Cefuroxime Axetil 250 MG Oral TabletIndications:B ronchitis, complicated Take by mouth 1 Tablet in the morning AND 1 Tablet before bedtime. 20 Tablet 0 2 Active Benzonatate 200 MG Oral CapsuleIndications: [...] Active Levothyroxine Sodium 175 MCG Oral Tablet (Levoxyl)Indication s:Acquired hypothyroidism Take 1 Tab by mouth daily. (at least 30 min prior to breakfast or other meds) 35 Tab 11 1 05/20/20 22 Discontinued BD Pen Needle Mini U/F 31G X 5 MM (Insulin Pen Needle)Indications: Type 2 diabetes mellitus with hemoglobin A1c goal of less than 7.0% (HCC) USE TO INJECT INSULIN FOUR TIMES DAILY. 400 Each 3 1 05/23/20 22 Discontinued Hospital, Clinic, or Other Facility [...] mass index (BMI) of 45.0-49.9 in adult 03 01/17/2017 Overview: bmi= 48.04 12/09/15 Need for shingles [...] > 40) 05/25/2012 01/17/2017 Overview: BMI= 55.27 9/14/12 Impacted cerumen 05/25/2012 06/07/2016 Hemorrhage of rectum [...] pain 01/24/2012 01/17/2017 Genetic Sleep Disorder Research Other*[id number] 05/13/2011 04/07/2016 Obstructive sleep apnea 01/18/2011 12/27/19 18 Overview: 08/18/11 -- BIPAP auto: max IPAP to 18, min EPAP 10. SD card in 3 months. 10/19/11 Auto BIPAP -- max IPAP 15, min [...] Encounters Date Type Specialty Care Team Description 05/31/2022 Office Visit Gynecology Obstetrics Concetta Khan MD [address] [place], [place] [address] [address] 05/31/2022 Telemedicine [facility] Aleyda Campos PA-C [address] [place] [address] Kaylee Barakat, Community Health Manager Hydraulic [address] [place] [address] 06/01/2022 Office Visit Pharmacy Pharmacist1, [facility] Sp 200 [place] [address] 06/02/2022 Home Visit [facility] July Poe RN [facility] [place] [address] 06/09/2022 Hem/Onc Treatment Hematology Oncology [place], Chair 4 Hem Onc Scenery [address] [place] [address] 06/24/2022 Office Visit Sleep Disorders Love Francisco DO 132 [place] [address] 07/04/2022 Office Visit Gynecology Obstetrics Concetta Khan MD [address] [place] [id number] 07/05/2022 Home Visit Family Medicine Kaylee Barakat, Community Health Manager Hydraulic [address] [place] [address] 08/23/2022 Office Visit Endocrinology Alberta Duque PA-C [address] [place] [address] 08/30/2022 Office Visit Gastroenterology Lyssa Stout CRNP 132 [place] [address] 09/14/2022 PulmDiagnostic Pulmonary Function West, Pft [address] [place] [address] 09/28/2022 Office Visit Pulmonary Reynaldo Marquez MD [address] [place] [address] 10/26/2022 Office Visit Hematology Oncology Tono Sanchez MD 200 [place] [address] Scheduled Orders Name Type Priority Associated Diagnoses [...] of this encounter Implants Implanted Type Area Supervisor Burling And Joining Device Identifier Shelf Expiration Date Model / Serial / Lot Microtech Sure Clip Implanted:Qty: 2 on 06/03/2020 by Janis Hatch DO at OR [facility] Clip N/A: Colon 04/21/2022 [facility]-F-26-2 35-C-R / / [id number] documented as of this encounter Visit Diagnoses Diagnosis Acquired hypothyroidism- Primary Unspecified hypothyroidism documented in this encounter Additional Health Concerns Infection Onset Date Last Indicated Resolved Time COVID-19 (confirmed) 04/29/2022 04/29/2022 022 12:19 AM EDT documented as of this encounter Advance Directives Documents on File Type Date Recorded Patient Pantry Worker 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 WILL AND HEALTH CARE POA Power of Returned Goods Receiving Clerk 04/29/2021 12:00 AM TOM R OF LEAD ENTERPRISE ARCHITECT HEALTH CARE POA Advanced Directive 04/01/2021 1:14 [...] Syed Bustos Spouse Emergency Contact Care Teams Solderer Furnace Relationship Specialty Start Date End Date Vanita Dunn MD [address] [place] [address] PCP - General Family Medicine 03/16/21 documented as of this encounter
--- OUTSIDE RECORDS SUMMARY | 2023-05-10 18:16 | External Medical Summary | Summary of Care ---
Author Name Unknown Organization [facility] Address [place] [address] Care Team Providers Care Transportation Aid Name Role Phone Vanita Dunn MD Primary Care Provid er Reason for Visit * Reason Comments eRx-Medication Refill Encounter Details Date Type Department Care Team Description 05/22/2022 Refill Pharmacy, [place] [address] [place] [address] Maikel Caceres, [address] [place] [address] Type 2 diabetes mellitus with hemoglobin A1c goal of less than 7.0% ([facility]) 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 documented as of this encounter (statuses as of 05/23/2022) Medications Medication Sig Dispensed Refills Start Date End Date Status nystatin (NYSTOP) 945418 UNIT/GM powder Apply topically to affected area 3 times a day. 60 g 1 0 Active Dexcom G6 Truss Maker Device Use as directed. To test blood sugars 4 times a day Dx E11.9 1 Each 0 1 Active Dexcom G6 Transmitter Use as directed. To test blood sugars 4 times a day. Change every 90 days. Dx E11.9 1 Each 3 1 Active OneTouch Verio In Vitro Strip (Glucose Blood) TESTING once daily 100 Strip 3 1 Active OneTouch Delica Plus [id number] TESTING once daily 100 Each 3 1 [...] 7.0% ([facility]) inject 4.5mg (1 pen) under the skin once weekly 6 mL 5 2 Active Aspirin 81 MG Oral Tablet Chewable CHEW AND SWALLOW 1 TABLET BY MOUTH ONCE DAILY 30 Tablet 8 2 Active NovoLOG FlexPen 100 UNIT/ML Subcutaneous Solution Pen-injectorIndicat ions:Type 2 diabetes mellitus with hemoglobin A1c goal of less than 8.0% ([facility]) 35 Units at breakfast, [...] TIMES DAILY. 400 Each 3 2 Active BD Pen Needle Mini U/F [...] as of this encounter (statuses as of 05/23/2022) Active Problems Problem Noted Date Hypertensive heart [...] as of this encounter (statuses as of 05/23/2022) Resolved Problems Problem Noted Date Resolved Date [...] pain 01/24/2012 01/17/2017 Genetic Sleep Disorder Research Other*[id number] 05/13/2011 04/07/2016 Obstructive sleep apnea 01/18/2011 12/27/19 [...] as of this encounter (statuses as of 05/23/2022) Immunizations Name Administration Dates Next Due COVID-19 [...] encounter Miscellaneous Notes * Telephone Encounter - Laura Travis [facility] - 05/23/2022 12:05 PM EDT Signed Prescriptions: Disp Refills BD Pen Needle Mini U/F 31G X 5 MM (Insulin*400 Ea*3 Sig: USE TO INJECT INSULIN FOUR TIMES DAILY.Authorizing Provider: MAIKEL CACERES User: LAURA TRAVIS documented in this encounter Plan of Treatment Upcoming Encounters Date Type Specialty Care Team Description 05/24/2022 Home Visit Family Medicine Kaylee Barakat, [facility] [place] [address] [place] [address] 05/30/2022 Office Visit Gynecology Obstetrics Susan Jara MD [address] [place] [address] 05/31/2022 [facility]medicine [facility] Aleyda Campos [facility]-C [facility] [address] Kaylee Barakat, [facility] [address] [place] [address] 06/01/2022 Office Visit Pharmacy Pharmacist1, [facility] 200 [place] [address] 06/02/2022 [facility] Visit [facility] [place] [address] 06/09/2022 Hem/Onc Treatment Hematology Oncology [place], Chair [address] Hem [address] [place] [address] 06/24/2022 Office Visit Sleep Disorders Love Francisco DO 132 [place] [address] 07/04/2022 Office Visit Gynecology Obstetrics Concetta Khan MD [address] [place], [place] [phone] 08/23/2022 Office Visit Endocrinology Alberta Duque PA-C [address] [place] [address] 08/30/2022 Office Visit Gastroenterology Lyssa Stout CRNP 132 [place] [address] 09/14/2022 PulmDiagnostic Pulmonary Function West, Pft [address] [place] [address] 09/28/2022 Office Visit Pulmonary Reynaldo Marquez MD [address] [facility] [place] [address] 10/26/2022 Office Visit Hematology Oncology Tono Sanchez MD 200 [place] [address] Scheduled Procedures Name Priority Associated Diagnoses Date/Ti [...] of this encounter Implants Implanted Type Area Salesperson Shoes Device Identifier Shelf Expiration Date Model / Serial / Lot Microtech Sure Clip Implanted:Qty: 2 on 06/03/2020 by Janis Hatch DO at OR [facility] Clip N/A: Colon 04/21/[address] [facility]-F-26-2 35-C-R / / [id number] documented as of this encounter Visit Diagnoses Diagnosis Type 2 diabetes mellitus with hemoglobin A1c goal of less than 7.0% (HCC) documented in this encounter Advance Directives Documents on File Type Date Recorded Patient Power Superintendent 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 WILL AND HEALTH CARE POA Power of Geographic Area Intelligence Officer 04/29/2021 12:00 AM TOM R OF GRAVITY MANAGER HEALTH CARE POA Advanced Directive 04/01/2021 [...] on File Name Relationship Healthcare Agent [facility] p Communication Syed Busots Spouse Emergency Contact Care Teams Transportation Aid Relationship Specialty Start Date End Date Vanita Dunn MD [address] [facility] [place] [id number] PCP - General Family Medicine 03/16/21 documented as of this encounter
--- OUTSIDE RECORDS SUMMARY | 2023-05-10 18:17 | External Medical Summary | Summary of Care ---
Author Name Unknown Organization [place] [address] Care Team Providers Care Court Usher Name Role Phone Vanita Dunn MD Primary Care Provid er Encounter Details Date Type Department Care Team Description 05/20/2022 Telephone Endocrinology, [place] [address] [place], [place] [id number] Alberta Duque PA-C [address] [place], [place] [phone] 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 documented as of this encounter (statuses as of 05/20/2022) Medications Medication Sig Dispensed Refills Start Date End Date Status nystatin (NYSTOP) 313200 UNIT/GM powder Apply topically to affected area 3 times a day. 60 g 1 0 Active Dexcom G6 Agriculture Teacher Device Use as directed. To test blood sugars 4 times a day Dx E11.9 1 Each 0 1 Active Dexcom G6 Transmitter Use as directed. To test blood sugars 4 times a day. Change every 90 days. Dx E11.9 1 Each 3 1 Active OneTouch Verio In Vitro Strip (Glucose Blood) TESTING once daily 100 Strip 3 1 Active OneTouch Delica Plus [id number] TESTING once daily 100 Each 3 1 [...] BEFORE BREAKFAST 90 Capsule 1 1 Active BD Pen Needle Mini U/F 31G X 5 MM (Insulin Pen Needle)Indications: Type 2 diabetes mellitus with hemoglobin A1c goal of less than 7.0% ([facility]) USE TO INJECT INSULIN FOUR TIMES DAILY. 400 Each 3 1 Active Budesonide-Formoter ol Fumarate 160-4.5 MCG/ACT [...] hemoglobin A1c goal of less than 7.0% ([facility]) inject 4.5mg (1 pen) under the skin once weekly 6 mL 5 2 Active Aspirin 81 MG Oral Tablet Chewable CHEW AND SWALLOW 1 TABLET BY MOUTH ONCE DAILY 30 Tablet 8 2 Active NovoLOG FlexPen 100 UNIT/ML Subcutaneous Solution Pen-injectorIndicat ions:Type 2 diabetes mellitus with hemoglobin A1c goal of less than 8.0% ([facility]) 35 Units at breakfast, 39 Units [...] 35 Tab 11 1 05/20/20 22 Discontinued Hospital, Clinic, or Other Facility [...] as of this encounter (statuses as of 05/20/2022) Active Problems Problem Noted Date Hypertensive heart [...] as of this encounter (statuses as of 05/20/2022) Resolved Problems Problem Noted Date Resolved Date [...] pain 01/24/2012 01/17/2017 Genetic Sleep Disorder Research Other*[id number] 05/13/2011 04/07/2016 Obstructive sleep apnea 01/18/2011 12/27/19 [...] as of this encounter (statuses as of 05/20/2022) Immunizations Name Administration Dates Next Due COVID-19 [...] encounter Miscellaneous Notes * Telephone Encounter - Alberta Duque PA-C [...] 05/24/2022 Home Visit Family Medicine Kaylee Barakat, [facility] Business Unit Leader [address] [place] [address] 05/30/2022 Office Visit Gynecology Obstetrics Susan Jara MD [address] [place] [address] [phone] 05/31/2022 Telemedicine [facility] Aleyda Campos PA-C [address] [place] [address] Kaylee Barakat, [facility] Business Unit Leader [address] [place] [address] 06/01/2022 Office Visit Pharmacy Pharmacist1, [facility] 200 [facility], [place] [address] 06/02/2022 Home Visit [facility] July Poe, RN [address] [place] [address] 06/09/2022 Hem/Onc Treatment Hematology Oncology [place], Chair 4 Hem Onc Scenery 200 [place] [address] 06/24/2022 Office Visit Sleep Disorders Love Francisco DO [address] [place] [address] 07/04/2022 Office Visit Gynecology Obstetrics Concetta Khan MD 400 [facility] [place] [phone] 08/23/2022 Office Visit Endocrinology Alberta Duque PA-Niya [address] [place] [address] 08/30/2022 Office Visit Gastroenterology Lyssa Stout, FINANCIAL PROJECT MANAGER 132 [facility] [place] [address] 09/14/2022 PulmDiagnostic Pulmonary Function [place], Pft 132 [facility] [place] [address] 09/28/2022 Office Visit Pulmonary [facility]do [facility] [address] [facility] [address] 10/26/2022 Office Visit Hematology Oncology Tono Sanchez MD [address] [place] [address] Scheduled Orders Name Type Priority Associated Diagnoses [...] of this encounter Implants Implanted Type Area Line Manager Device Identifier Shelf Expiration Date Model / Serial / Lot Microtech Sure Clip Implanted:Qty: 2 on 06/03/2020 by Janis Hatch DO at OR [facility] Clip N/A: Colon 04/21/2022 [facility]-F-26-2 35-C-R / / [id number] documented as of this encounter Visit Diagnoses Diagnosis Acquired hypothyroidism- Primary Unspecified hypothyroidism documented in this encounter Additional Health Concerns Infection Onset Date Last Indicated Resolved Time COVID-19 (confirmed) 04/29/2022 04/29/2022 022 12:19 AM EDT documented as of this encounter Advance Directives Documents on File Type Date Recorded Patient Ambulatory Analyst 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 WILL AND HEALTH CARE POA Power of Storekeeper Engineering 04/29/2021 12:00 AM TOM R OF [facility] POA Advanced Directive 04/01/2021 1:14 [...] Syed Bustos Spouse Emergency Contact Care Teams Court Usher Relationship Specialty Start Date End Date Vanita Dunn MD [address] [place], [place] [phone] PCP - General Family Medicine 03/16/21 documented as of this encounter
--- OUTSIDE RECORDS SUMMARY | 2023-05-10 18:17 | External Medical Summary ---
Author Name Unknown Address Unknown Organization K09:[facility] [place] [address] Laboratory Report Ordering Provider Test Date Status JACOB CORBETT 05/19/2022 14:51:16 Final Observation Date Value Abnormality Reference (Units ) Status WBC, Total 05/19/2022 14:51:16 3.67 Below low normal 4. 00-10.80 (K/uL) Final RBC 05/19/2022 14:51:16 2.84 3.85-5.15 (M/uL) Final Hemoglobin 05/19/2022 14:51:16 10.4 Below low normal 12 .0-15.3 (g/dL) Final HCT 05/19/2022 14:51:16 32.0 Below low normal 36. 0-45.2 (%) Final MCV 05/19/2022 14:51:16 112.7 81.5-97.5 (fL) Final MCH 05/19/2022 14:51:16 36.6 27.0-34.0 (pg) Final MCHC 05/19/2022 14:51:16 32.5 32.0-36.0 (g/dL) Final RDW 05/19/2022 14:51:16 18.0 11.5-15.5 (%) Final Platelets 05/19/2022 14:51:16 84 Below low normal 140 -400 (K/uL) Final MPV 05/19/2022 14:51:16 Final Performing Location [facility] [place] [address]
--- OUTSIDE RECORDS SUMMARY | 2023-05-10 18:17 | External Medical Summary ---
Author Name Unknown Address Unknown Organization K09:[facility] [place] [place] [address] Laboratory Report Ordering Provider Test Date Status JACOB CORBETT 05/19/2022 14:51:16 Final Observation Date Value Abnormality Reference (Units ) Status SYNC LEUKOCYTES IN BLOOD BY AUTOMATED COUNT 05/19/2022 14:51:16 3.67 Below low normal 4.00-10.80 (K/uL) Final Segs 05/19/2022 14:51:16 58.1 40.0-75.0 (%) Final Lymphs % 05/19/2022 14:51:16 20.7 18.0-42.0 (%) Final Monos 05/19/2022 14:51:16 12.5 Above high normal 1.0-11.0 (%) Final Eosinophils 05/19/2022 14:51:16 7.9 Above high normal 0.0-6.0 (%) Final Basos 05/19/2022 14:51:16 0.8 0.0-2.0 (%) Final Absolute Segs 05/19/2022 14:51:16 2.13 1.80-7.70 (K/uL) Final Lymphs, absolute 05/19/2022 14:51:16 0.76 Below low normal 1.00-4.80 (K/ul) Final Monos, Abs 05/19/2022 14:51:16 0.46 0.00-1.10 (K/uL) Final Eos, Abs 05/19/2022 14:51:16 0.29 0.00-0.70 (K/uL) Final Basos, Abs 05/19/2022 14:51:16 0.03 0.00-0.20 (K/uL) Final Performing Location [facility] [place] [address]
--- OUTSIDE RECORDS SUMMARY | 2023-05-10 18:17 | External Medical Summary | Summary of Care ---
Author Name Unknown Organization [facility] Address [facility] [place] [address] Care Team Providers Care Buckram Sewer Name Role Phone Vanita Dunn MD Primary Care Provid er Reason for Visit * Reason Comments IV Therapy Venofer Encounter Details Date Type Department Care Team Description 05/19/2022 Hem/Onc Treatment Hematology/Oncology Treatment, [place] [address] [place] [address] [place], Chair 11 Hem Onc Scenery [address] [facility] [place] [address] Iron deficiency anemia due to chronic blood loss*; Type 2 diabetes mellitus with hemoglobin A1c goal of less than 8.0% (HCC); Acquired hypothyroidism; Thrombocytopenia ([facility]) 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 60 g 1 10/16/2019 Active Dexcom G6 Senior Administrative Services Officer Device Use as directed. To test blood sugars 4 times a day Dx E11.9 1 Each 0 09/14/2020 Active Dexcom G6 Transmitter Use as directed. To test blood sugars 4 times a day. Change every 90 days. Dx E11.9 1 Each 3 09/14/2020 Active OneTouch Verio In Vitro Strip (Glucose Blood) TESTING once daily 100 Strip 3 10/29/2020 Active OneTouch Delica Plus [id number] TESTING once daily 100 Each 3 10/29/2020 [...] DAILY DIRECTED 16 g 5 06/11/2021 Active Levothyroxine Sodium 175 MCG Oral Tablet (Levoxyl)Indications: Acquired hypothyroidism Take 1 Tab by mouth daily. (at least 30 min prior to breakfast or other meds) 35 Tab 11 06/11/2021 Active Linzess 290 MCG Oral Capsule (linaCLOtide) TAKE 1 CAPSULE BY MOUTH ONCE DAILY BEFORE BREAKFAST 90 Capsule 1 07/22/2021 Active BD Pen Needle Mini U/F 31G X 5 MM (Insulin Pen Needle)Indications:Ty pe 2 diabetes mellitus with hemoglobin A1c goal of less than 7.0% ([facility]) USE TO INJECT INSULIN FOUR TIMES DAILY. 400 Each 3 08/23/2021 Active Budesonide-Formoterol Fumarate 160-4.5 MCG/ACT Inhalation Aerosol [...] for Cough. 30 Capsule 1 05/13/2022 Active Hospital, Clinic, or Other Facility Administered [...] as of this encounter (statuses as of 05/19/2022) Active Problems Problem Noted Date Hypertensive heart [...] as of this encounter (statuses as of 05/19/2022) Resolved Problems Problem Noted Date Resolved Date [...] pain 01/24/2012 01/17/2017 Genetic Sleep Disorder Research Other*[id number] 05/13/2011 04/07/2016 Obstructive sleep apnea 01/18/2011 12/27/19 [...] as of this encounter (statuses as of 05/19/2022) Immunizations Name Administration Dates Next Due COVID-19 [...] Sign Reading Time Taken Comments Blood Pressure 105/72 05/19/2022 2:57 PM EDT Pulse 78 05/19/2022 2:57 PM EDT Temperature 36.8 C (98.2 F) 05/19/2022 2:57 PM ED T Respiratory Rate 20 05/19/2022 2:57 PM EDT Oxygen Saturation - - Inhaled [...] Nursing Notes * Renetta Schuler RN - 05/19/2022 4:41 PM EDT Pt completed treatment without issues. [...] No coverage. * Renetta Schuler RN - 05/19/2022 2:58 PM EDT Pt presents for Venofer infusion in own w/c. Pt has no new symptoms/concerns to report since treatment yesterday. VAD accessed; Venofer infusing. Safety and Risk for Injury Patient will remain free from injury. Ensure appropriate safety devices are available. Provide and maintain safe environment. documented in this encounter Plan of Treatment Upcoming Encounters Date Type Specialty Care Team Description 05/24/2022 Home Visit Family Medicine Kaylee Barakat, Community [facility] Senior Court Office Assistant [address] [facility] [address] 05/30/2022 Office Visit Gynecology Obstetrics Susan Jara MD [address] [place] [address] 05/31/2022 [facility]medicine [facility] Aleyda Campos PA-C 132 [facility] [place] [address] Kaylee Barakat, Community Health Senior Court Office Assistant [address] [place] [address] 06/01/2022 Office Visit Pharmacy Pharmacist1, [facility] [address] [place] [address] 06/02/2022 Home Visit [facility] July Poe, RN 132 [facility] [place] [address] 06/09/2022 Hem/Onc Treatment Hematology [place], Chair 4 Hem Onc Scenery 200 [facility] [place] [address] 06/24/2022 Office Visit Sleep Disorders Love Francisco DO [address] [place] [address] 07/04/2022 Office Visit Gynecology Obstetrics Concetta Khan MD [address] [place] [address] 08/23/2022 Office Visit Endocrinology Alberta Duque PA-C [address] [place] [address] 08/30/2022 Office Visit Gastroenterology Lyssa Stout CRNP [address] [place] [address] 09/14/2022 PulmDiagnostic Pulmonary Function West, Pft [address] [place] [address] 09/28/2022 Office Visit Pulmonary Reynaldo Marquez MD [address] [place] [phone] 10/26/2022 Office Visit Hematology Oncology Tono Sanchez MD [address] [place] [address], [place] [address] Pending Results Name Type Priority Associated Diagnoses Date /Time HEMOGLOBIN A1C Lab Routine Type 2 diabetes mellitus with hemoglobin A1c goal of less than 8.0% (HCC) 05/19/2022 2:49 PM EDT TSH WITH FREE T4 IF INDICATED Lab Routine Type 2 diabetes mellitus with hemoglobin A1c goal of less than 8.0% (HCC) Acquired hypothyroidism 05/19/2022 2:49 PM EDT Scheduled Procedures Name Priority Associated [...] 2022 06/10/2021, 06/01/2020, 06/05/2019, Additional history exists TSH FOR THYROID MEDICATION MONITORING YEARLY 06/10/2022 06/10/2021, 04/05/2021, 02/04/2021, Additional history exists Yearly B-12 07/06/2022 07/06/2021, 03/12, 03/21/2021, Additional history exists DIABETES-HGBA1C EVERY 6 MONTHS 07/27/2022 01/24/2022, 08/19/2021, 06/10/2021, Additional history exists Alb / Creat Ratio 03/30/2023 03/30/2022, , 02/03/2017, Additional history exists GFR - Renal Function 05/19/2023 05/19/2022, 12/20/2021, 12/18/2021, Additional history exists Mammogram 09/09/2023 09/09/2021, 08/12, [...] of this encounter Implants Implanted Type Area Wastewater Treatment Plant Chemist Device Identifier Shelf Expiration Date Model / Serial / Lot Microtech Sure Clip Implanted:Qty: 2 on 06/03/2020 by Janis Hatch DO at OR [facility] Clip N/A: Colon 04/21/2022 [facility]-F-26-2 35-C-R / / [id number] documented as of this encounter Procedures Procedure Name Priority Date/Time Associated Diagnosis Comments DIFFERENTIAL, AUTOMATED STAT 05/19/2022 2:51 PM EDT Thrombocytopenia (HCC) CBC WITH WBC DIFFERENTIAL STAT 05/19/2022 2:51 PM EDT Thrombocytopenia (HCC) CBC STAT 05/19/2022 2:51 PM EDT Thrombocytopenia (HCC) DIFFERENTIAL, TECHNOLOGIST REVIEW Routine 05/19/2022 2:51 PM EDT Thrombocytopenia (HCC) BASIC METABOLIC PANEL Routine 05/19/2022 2:49 PM EDT Type 2 diabetes mellitus with hemoglobin A1c goal of less than 8.0% (HCC) documented in this encounter Results * (ABNORMAL) DIFFERENTIAL, TECHNOLOGIST REVIEW (05/19/2022 2:51 PM EDT) nRBCs [facility] 56- Anisocytosis Slight(A) None Seen [facility] 56-02 Elliptocytes Few(A) None Seen [facility] 56-02 Macrocytosis Present(A) None Seen [facility] 56-02 Tear Drop Cells Few(A) None Seen [facility] 56- Specimen Blood - Venous blood specime n (specimen) Performing Organization Address City/[facility] Co de Phone Number [facility] 56- [address] [place] [address] * (ABNORMAL) DIFFERENTIAL, AUTOMATED (05/19/2022 2:51 PM EDT) [facility] WBC 3.67(L) 4.00 - 10.80 K/uL [facility] 56-02 Neutrophils % 58.1 40.0 - 75.0 % LAB[facility]ATORY [facility] 56-02 Lymphocytes % 20.7 18.0 - 42.0 % [facility] 56-02 Monocytes % 12.5(H) 1.0 - 11.0 % [facility] 56-02 Eosinophils % 7.9(H) 0.0 - 6.0 % LAB[facility]ATORY [facility] 56- Basophils % 0.8 0.0 - 2.0 % LABORATORY COUNT INCLUDES THE [facility] E [facility] 56-02 Absolute Neutrophils 2.13 1.80 - 7.70 K/uL [facility] 56-02 Absolute Lymphocytes 0.76(L) 1.00 - 4.80 K/ul [facility] 56-02 Absolute Monocytes 0.46 0.00 - 1.10 K/uL [facility] 56-02 Absolute Eosinophils 0.29 0.00 - 0.70 K/uL [facility] 56-02 Absolute Basophils 0.03 0.00 - 0.20 K/uL [facility] 56-02 Specimen Blood - Venous blood specime n (specimen) [place] [address] [address] [place] [address] * (ABNORMAL) CBC (05/19/2022 2:51 PM EDT) [facility] WBC 3.67(L) 4.00 - 10.80 K/uL [place] [address] RBC 2.84 3.85 - 5.15 M/uL [place] [address] HGB 10.4(L) 12.0 - 15.3 g/dL [place] [address] HCT 32.0(L) 36.0 - 45.2 % LABORATORY [address] MCV 112.7 81.5 - 97.5 fL [address] MCH 36.6 27.0 - 34.0 pg [facility] [place] [address] MCHC 32.5 32.0 - 36.0 g/dL [place] [address] RDW 18.0 11.5 - 15.5 % LABORATORY [address] PLT 84(L) 140 - 400 K/uL [place] [address] MPV Comment:No result - abnormal platelet distribution. [place] [address] Specimen Blood - Venous blood specime n (specimen) [place] [address] [address] [place] [address] * (ABNORMAL) BASIC METABOLIC PANEL (05/19/2022 2:49 PM EDT) [facility] BUN 18 6 - 20 mg/dL [address] Creatinine 0.8 0.5 - 1.0 mg/dL [place] [address] Estimated Glomerular Filtration Rate 83Comment:eGFR is calculated based on the CKD-EPI 2020 equation >=60 mL/min [place] [address] Sodium 143 135 - 146 mmol/L [place] [address] Potassium 4.0 3.5 - 5.1 mmol/L [place] [address] Chloride 111(H) 98 - 107 mmol/L [address] CO2 23 22 - 32 mmol/L [place] [address] Anion Gap 9 7 - 15 mmol/L LABORATORY [address] Glucose 144(H) 70 - 120 mg/dL [address] Calcium 9.2 8.4 - 10.2 mg/dL [facility] Specimen Blood - Venous blood specime n (specimen) [facility] [address] [place] [address] documented in this encounter Visit Diagnoses Diagnosis Iron deficiency anemia due to chronic blood loss- Primary Iron deficiency anemia secondary to blood loss (chronic) Type 2 diabetes mellitus with hemoglobin A1c goal of less than 8.0% (HCC) Acquired hypothyroidism Unspecified hypothyroidism Thrombocytopenia (HCC) Thrombocytopenia, unspecified documented in this encounter Administered Medications Active Administered Medications - up to 3 most recent administrations Medication Order MAR Action Action Date Dose Rate Site diphenhydrAMINE (Benadryl) inj 50 mg 50 mg, IV Push, ONCE PRN Other, Hypersensitivity Reaction, Starting on Mon05/19/22 at 1429, Until Mon05/20/22 at 1428, For 24 hours EPINEPHrine 1 MG/ML inj 0.3 mg 0.3 mg, Intramuscular, ONCE PRN Other, Hypersensitivity Reaction or Anaphylaxis, Starting on Mon05/19/22 at 1429, Until Mon05/20/22 at 1428, For 24 hours hEParin 100 UNIT/ML Lock Flush inj 500 Units 500 Units (5 mL), IV Lock, PRN Other, IV Flush, Starting on Mon05/19/22 at 1429, Until Mon05/20/22 at 1428, For 24 hours, Do not flush if lock, PICC, or central line not in place; IV infusing or unable to flush. Given 05/19/2022 4:09 PM EDT 500 Units Hydrocortisone Na Succinate PF (Solu-Cortef) inj 100 mg 100 mg, IV Push, ONCE PRN Other, Hypersensitivity Reaction, Starting on Mon05/19/22 at 1429, Until Mon05/20/22 at 1428, For 24 hours NSS infusion 500 mL, Intravenous, at 50 mL/hr, CONTINUOUS, Starting on Mon05/19/22 at 1530, Until Mon05/20/22 at 0129 Start Infusion 05/19/2022 2:35 PM EDT 500 mL 50 mL/hr sodium chloride 0.9 % flush/inj 10 mL 10 mL, IV Push, PRN Other, IV Flush, Starting on Mon05/19/22 at 1429, Until 05/20/22 at 1428, For 24 hours, Do not flush if lock, PICC, or central line not in place; IV infusing or unable to flush. Given 05/19/2022 4:09 PM EDT 10 mL Inactive Administered Medications - up to 3 most recent administrations Medication Order MAR Action Action Date Dose Rate Site Iron Sucrose (Venofer) 300 mg in NSS 250 mL ivpb 300 mg, IV Piggyback, ONCE, 1 dose, On [place] 05/19/22 at 1600, Administer over 90 Minutes Start Infusion 05/19/2022 2:35 PM EDT 300 mg 166.67 mL/hr documented in this encounter Additional Health Concerns Infection Onset Date Last Indicated Resolved Time COVID-19 (confirmed) 04/29/2022 04/29/2022 documented as of this encounter Advance Directives Documents on File Type Date Recorded Patient Ramp Lead 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 WILL AND HEALTH CARE POA Power of Production Shift Supervisor 04/29/2021 12:00 AM TOM R OF [facility] POA Advanced Directive 04/01/2021 1:14 [...] Syed Bustos Spouse Emergency Contact Care Teams Buckram Sewer Relationship Specialty Start Date End Date Vanita Dunn MD [address] [place] [address] PCP - General Family Medicine 03/16/21 documented as of this encounter
--- OUTSIDE RECORDS SUMMARY | 2023-05-10 18:17 | External Medical Summary ---
Author Name Unknown Address Unknown Organization K01:[facility] - [address] [place] [address] Laboratory Report Ordering Provider Test Date Status VICKY HUGHES 05/19/2022 14:49:32 Final Observation Date Value Abnormality Reference (Units ) Status TSH 05/19/2022 14:49:32 0.04 Below low normal 0.2 7-4.20 (uIU/mL) Final Performing Location LABORATORY C - [address] [place] [address]
--- OUTSIDE RECORDS SUMMARY | 2023-05-10 18:17 | External Medical Summary ---
Author Name Unknown Address Unknown Organization K09:[facility] [place] [address] [address] Laboratory Report Ordering Provider Test Date Status JACOB CORBETT 05/19/2022 14:51:16 Final Observation Date Value Abnormality Reference (Units ) Status Nucleated erythrocytes/100 leukocytes [Ratio] in Blood by Automated count 05/19/2022 14:51:16 Final Anisocytosis [Presence] in Blood by Light microscopy 05/19/2022 14:51:16 Slight Abnormal None Seen Final Elliptocytes [Presence] in Blood by Light microscopy 05/19/2022 14:51:16 Few Abnormal None Seen Final Macrocytes [Presence] in Blood by Light microscopy 05/19/2022 14:51:16 Present Abnormal None Seen Final Dacrocytes [Presence] in Blood by Light microscopy 05/19/2022 14:51:16 Few Abnormal None Seen Final Performing Location [facility] [place] [address]
--- OUTSIDE RECORDS SUMMARY | 2023-05-10 18:18 | External Medical Summary ---
Author Name Unknown Address Unknown Organization K09:[facility] [address] [address] Laboratory Report Ordering Provider Test Date Status VICKY HUGHES 05/19/2022 14:49:27 Final Observation Date Value Abnormality Reference (Units ) Status BUN 05/19/2022 14:49:27 18 6-20 (mg/dL) Final Creatinine 05/19/2022 14:49:27 0.8 0.5-1.0 (mg/dL) Final Glomerular filtration rate/1.73 sq M.predicted [Volume Rate/Area] in Serum, Plasma or Blood by Creatinine-based formula (CKD-EPI) 05/19/2022 14:49:27 83 >=60 (mL/min) Final Performing Location [facility] [place] [address]
--- OUTSIDE RECORDS SUMMARY | 2023-05-10 18:18 | External Medical Summary | Summary of Care ---
Author Name Unknown Organization [facility] Address [place] [address] Care Team Providers Care Call Centre Supervisor Name Role Phone Vanita Dunn MD Primary Care Provid er Reason for Visit * Reason Onset Date Comments Order Request 05/10/2022 Encounter Details Date Type Department Care Team Description 05/10/2022 Telephone [facility] [address] [place] [address] Vanita Dunn MD [address] [place] [address] Order Request 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 documented as of this encounter (statuses as of 05/18/2022) Medications Medication Sig Dispensed Refills Start Date End Date Status nystatin (NYSTOP) 618044 UNIT/GM powder Apply topically to affected area 3 times a day. 60 g 1 0 Active Dexcom G6 Solder Deposit Operator Device Use as directed. To test blood sugars 4 times a day Dx E11.9 1 Each 0 1 Active Dexcom G6 Transmitter Use as directed. To test blood sugars 4 times a day. Change every 90 days. Dx E11.9 1 Each 3 1 Active OneTouch Verio In Vitro Strip (Glucose Blood) TESTING once daily 100 Strip 3 1 Active OneTouch Delica Plus [id number] TESTING once daily 100 Each 3 1 [...] DAILY DIRECTED 16 g 5 1 Active Levothyroxine Sodium 175 MCG Oral Tablet (Levoxyl)Indicatio ns:Acquired hypothyroidism Take 1 Tab by mouth daily. (at least 30 min prior to breakfast or other meds) 35 Tab 11 1 Active Linzess 290 MCG Oral Capsule (linaCLOtide) TAKE 1 CAPSULE BY MOUTH ONCE DAILY BEFORE BREAKFAST 90 Capsule 1 1 Active BD Pen Needle Mini U/F 31G X 5 MM (Insulin Pen Needle)Indications :Type 2 diabetes mellitus with hemoglobin A1c goal of less than 7.0% ([facility]) USE TO INJECT INSULIN FOUR TIMES DAILY. 400 Each 3 1 Active Budesonide-Formote rol Fumarate 160-4.5 MCG/ACT [...] 20 Tablet 0 2 Active Disposable Brief X-LargeIndications :Hypertensive heart [...] Tablet (Desyrel)Indicatio ns:Sleep disturbances TAKE 1 TABLET ONCE DAILY AT BEDTIME 90 Tab 3 1 05/12/20 22 Discontinued Benzonatate 100 MG Oral Capsule (Tessalrosi Arnold)Indications :Bronchitis, complicated Take 1 Capsule by mouth 3 times a day as needed for Cough. 30 Capsule 1 2 05/13/20 22 Discontinued(Ref ill) Hospital, Clinic, or Other Facility Administered Medication [...] as of this encounter (statuses as of 05/18/2022) Active Problems Problem Noted Date Hypertensive heart [...] as of this encounter (statuses as of 05/18/2022) Resolved Problems Problem Noted Date Resolved Date [...] pain 01/24/2012 01/17/2017 Genetic Sleep Disorder Research Other*[id number] 05/13/2011 04/07/2016 Obstructive sleep apnea 01/18/2011 12/27/19 [...] as of this encounter (statuses as of 05/18/2022) Immunizations Name Administration Dates Next Due COVID-19 [...] Telephone Encounter - Josselin Gaspar LPN - 05/18/2022 2:19 PM EDT Printed and faxed. * Telephone Encounter - THAD Borjas - 05/18/2022 11:48 AM EDT Joe is calling and states patient is in need of a sling - joe is requesting if orders can be faxed to her so she can get the sling covered for patient through their waiver program. The original place the order was sent to wanted patient to pay $170 out of pocket for it. Please fax order to [phone]. Thank you. * Telephone Encounter - Michaelle Lindquist LPN - 05/11/2022 11:03 AM EDT I called [facility] was told that all that needs to be done is calling Sandra and having them change to the correct sling. Spoke with Bob at [employer] he is aware of what is needed. Bob states hewill call if there is any questions. * Telephone Encounter - THAD London - 05/10/2022 2:05 PM EDT An order was requested for this patient. Name of Requesting Provider: Joe from [facility] [employer] Order Requested: Sling for candace lift that has straps between legs Diagnosis/Reason for Request: Cerebral palsy Does the order need to be faxed somewhere? If so, where?: Yes - [facility] Other Machine Fax Number, if applicable: [phone] Call Back Number: [phone] If the caller is not a current patient, please advise the patient to call their current PCP to havethe order's prior to being seen in our office. The patient was informed that our providers would not order anything (medication, labs, etc.) prior to being seen. documented in this encounter Plan of Treatment Upcoming Encounters Date Type Specialty Care Team Description 05/19/2022 Hem/Onc Treatment Hematology Oncology Park, Chair 11 Hem Onc [facility] [address] [place] [address] 05/24/2022 Home Visit Family Medicine Kaylee Barakat, [facility] Biodiesel Product Development Manager [address] [place] [address] 05/30/2022 Office Visit Gynecology Obstetrics Susan Jara MD [address] [place] [address] 05/31/2022 [facility]icine [facility] Aleyda Campos PA-C [address] [place] [address] Kaylee Barakat, [facility] Biodiesel Product Development Manager [address] [place] [address] 06/01/2022 Office Visit Pharmacy Pharmacist1, [facility] [address] [facility] [place] [address] 06/02/2022 Home Visit [facility] July Poe RN [address] [place] [address] 06/24/2022 Office Visit Sleep Disorders Love Francisco DO [address] [place] [address] 07/04/2022 Office Visit Gynecology Obstetrics Concetta Khan MD [address] [place] [address] 08/23/2022 Office Visit Endocrinology Alberta Duque PA-C [address] [place] [address] 08/30/2022 Office Visit Gastroenterology Lyssa Stout CRNP 132 [facility] [place] [address] 09/14/2022 PulmDiagnostic Pulmonary Function West, [address]ft [facility] [place] [address] 09/28/2022 Office Visit Pulmonary Reynaldo Marquez MD [address] [facility], [place] [address] 10/26/2022 Office Visit Hematology Oncology Tono Sanchez MD 200 [place] [address] Scheduled Procedures Name Priority Associated Diagnoses Date/Ti [...] Additional history exists Yearly B-12 07/06/2022 07/06/2021, 0710/2020, 03/21/2021, Additional history exists DIABETES-HGBA1C EVERY 6 MONTHS 07/27/2022 01/24/2022, 08/19/2021, 06/10/2021, Additional history exists GFR - Renal Function 12/20/2022 12/20/2021, 12/18/2021, 09/23/2021, Additional history exists Alb / Creat Ratio 03/30/2023 03/30/2022, , 02/03/2017, Additional history exists Mammogram 09/09/2023 09/09/2021, 08/12, [...] of this encounter Implants Implanted Type Area Electronic Organ Mechanic Device Identifier Shelf Expiration Date Model / Serial / Lot Microtech Sure Clip Implanted:Qty: 2 on 06/03/2020 by Janis Hatch DO at OR [facility] Clip N/A: Colon 04/21/2022 [facility]-F-26-2 35-C-R / / [id number] documented as of this encounter Additional Health Concerns Infection Onset Date Last Indicated Resolved Time COVID-19 (confirmed) 04/29/2022 04/29/2022 documented as of this encounter Advance Directives Documents on File Type Date Recorded Patient Eap Counselor 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 WILL AND HEALTH CARE POA Power of Deicer Kit Assembler 04/29/2021 12:00 AM TOM R [facility] POA Advanced Directive 04/01/2021 1:14 PM [...] on File Name Relationship Healthcare Agent [facility] p Communication Syed Bustos Spouse Emergency Contact Care Teams Call Centre Supervisor Relationship Specialty Start Date End Date Vanita Dunn MD [address] [place] [facility] [place] [address] PCP - General Family Medicine 03/16/21 documented as of this encounter
--- OUTSIDE RECORDS SUMMARY | 2023-05-10 18:18 | External Medical Summary ---
Author Name Unknown Address Unknown Organization K01:[facility] [place] [address] [place] [address] Laboratory Report Ordering Provider Test Date Status VICKY HUGHES 05/19/2022 14:49:37 Final Observation Date Value Abnormality Reference (Units ) Status HbA1C 05/19/2022 14:49:37 7.4 Above high normal 4. 0-5.6 (%) Final Performing Location LAB[facility] - [address] [place] [address]
--- OUTSIDE RECORDS SUMMARY | 2023-05-10 18:18 | External Medical Summary ---
Author Name Unknown Address Unknown Organization K01:[facility] [place] [address] [place] [address] Laboratory Report Ordering Provider Test Date Status VICKY HUGHES 05/19/2022 14:49:32 Final Observation Date Value Abnormality Reference (Units ) Status T4, Free 05/19/2022 14:49:32 2.2 Above high normal 0. 9-1.7 (ng/dL) Final Performing Location [facility] - [address] [place] [address]
--- OUTSIDE RECORDS SUMMARY | 2023-05-10 18:19 | External Medical Summary | Summary of Care ---
Author Name Unknown Organization [facility] Address [place] [address] Care Team Providers Care Human Projectile Name Role Phone Vanita Dunn MD Primary Care Provid er Reason for Visit * Reason Onset Date Comments Order Request 05/10/2022 Encounter Details Date Type Department Care Team Description 05/10/2022 Telephone [facility] [address] [place] [address] Vanita Dunn MD [address] [place] [address] Order Request 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 documented as of this encounter (statuses as of 05/18/2022) Medications Medication Sig Dispensed Refills Start Date End Date Status nystatin (NYSTOP) 719980 UNIT/GM powder Apply topically to affected area 3 times a day. 60 g 1 0 Active Dexcom G6 Dial Equipment Engineer Device Use as directed. To test blood sugars 4 times a day Dx E11.9 1 Each 0 1 Active Dexcom G6 Transmitter Use as directed. To test blood sugars 4 times a day. Change every 90 days. Dx E11.9 1 Each 3 1 Active OneTouch Verio In Vitro Strip (Glucose Blood) TESTING once daily 100 Strip 3 1 Active OneTouch Delica Plus Salfhb23A TESTING once daily 100 Each 3 1 [...] of less than 7.0% ([facility]) USE TO INJECT INSULIN FOUR TIMES DAILY. [...] pain 01/24/2012 01/17/2017 Genetic Sleep Disorder Research Other*[id number] 05/13/2011 04/07/2016 Obstructive sleep apnea 01/18/2011 12/27/19 [...] Miscellaneous Notes * Telephone Encounter - THAD Borjas - [...] pocket for it. Please fax order to [phone]. Thank you. * Telephone Encounter - Michaelle Lindquist LPN - 05/11/2022 11:03 AM EDT I called [facility] was told that all that needs to be done is calling [employer] and having them change to the correct sling. Spoke with Bob at [employer] he is aware of what is needed. Bob states hewill call if there is any questions. * Telephone Encounter - THAD [place] - 05/10/2022 2:05 PM EDT An order was requested for this patient. Name of Requesting Provider: Joe from [facility] [employer] Order Requested: Sling for candace lift that has straps between legs Diagnosis/Reason for Request: Cerebral palsy Does the order need to be faxed somewhere? If so, where?: Yes - [facility] Payment plugin Fax Number, if applicable: [phone] Call Back Number: [phone] If the caller is not a current [...] Chair 11 Hem Onc [address] [place] [address] 05/24/2022 Home Visit Family Medicine Kaylee Barakat, [facility] Inseam Trimmer [address] [place] [address] 05/30/2022 Office Visit Gynecology Obstetrics Susan Jara MD [address] [place], [place] [address] 05/31/2022 [facility]medicine [facility] Aleyda Campos PA-C [address] [facility] [place] [address] Kaylee Barakat, Community Health Inseam Trimmer [address] [place] [address] 06/01/2022 Office Visit Pharmacy Pharmacist1, [facility] 200 [place] [address] 06/02/2022 Home Visit [facility] July Poe, UMA [address] [facility] [place] [address] 06/24/2022 Office Visit Sleep Disorders Love Francisco DO 132 [facility] [place] [address] 07/04/2022 Office Visit Gynecology Obstetrics Concetta Khan MD [address] [place], [place] [address] 08/23/2022 Office Visit Endocrinology Alberta Duque PA-C [address] [place] [address] 08/30/2022 Office Visit Gastroenterology Lyssa Stout CRNP 132 [facility] [place] [address] 09/14/2022 PulmDiagnostic Pulmonary Function West, Pft [address] [place] [address] 09/28/2022 Office Visit Pulmonary Reynaldo Marquez MD [address] [place] [address] 10/26/2022 Office Visit Hematology Oncology Tono Sanchez MD [address] [place] [address] Scheduled Procedures Name Priority Associated Diagnoses Date/Ti [...] of this encounter Implants Implanted Type Area Fund Accounting Manager Device Identifier Shelf Expiration Date Model / Serial / Lot Microtech Sure Clip Implanted:Qty: 2 on 06/03/2020 by Janis Hatch DO at OR [facility] Clip N/A: Colon 04/21/2022 [facility]-F-26-2 35-C-R / / [id number] documented as of this encounter Additional Health Concerns Infection Onset Date Last Indicated Resolved Time COVID-19 (confirmed) 04/29/2022 04/29/2022 documented as of this encounter Advance Directives Documents on File Type Date Recorded Patient Plan Rep 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 AND HEALTH CARE POA Power of Telesales Consultant 04/29/2021 12:00 AM TOM [facility] Advanced Directive 04/01/2021 1:14 PM Advanced Directive [...] Agents on File Name Relationship Healthcare [facility] Communication Syed Bustos Spouse Emergency Contact Care Teams Human Projectile Relationship Specialty Start Date End Date Vanita Dunn MD [address] [place] [address] PCP - General Family Medicine 03/16/21 documented as of this encounter
--- OUTSIDE RECORDS SUMMARY | 2023-05-10 18:19 | External Medical Summary | Summary of Care ---
Author Name Unknown Organization [facility] Address [place] [address] Care Team Providers Care Patient Intake Coordinator Name Role Phone Vanita Dunn MD Primary Care Provid er Reason for Visit * Reason Onset Date Comments Test Results 05/12/2022 Encounter Details Date Type Department Care Team Description 05/12/2022 Telephone Gastroenterology, [facility] [address] [facility] [place] [address] Lyssa Stout CRNP [address] [place] [address] Test Results 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 documented as of this encounter (statuses as of 05/17/2022) Medications Medication Sig Dispensed Refills Start Date End Date Status nystatin (NYSTOP) 089561 UNIT/GM powder Apply topically to affected area 3 times a day. 60 g 1 10/16/2019 Active Dexcom G6 Legal Compliance Officer Device Use as directed. To test blood sugars 4 times a day Dx E11.9 1 Each 0 09/14/2020 Active Dexcom G6 Transmitter Use as directed. To test blood sugars 4 times a day. Change every 90 days. Dx E11.9 1 Each 3 09/14/2020 Active OneTouch Verio In Vitro Strip (Glucose Blood) TESTING once daily 100 Strip 3 10/29/2020 Active OneTouch Delica Plus Aepdbq74T TESTING once daily 100 Each 3 10/29/2020 [...] AT BEDTIME 90 Tablet 3 05/12/2022 Active Hospital, Clinic, or Other Facility Administered [...] as of this encounter (statuses as of 05/17/2022) Active Problems Problem Noted Date Hypertensive heart [...] as of this encounter (statuses as of 05/17/2022) Resolved Problems Problem Noted Date Resolved Date [...] pain 01/24/2012 01/17/2017 Genetic Sleep Disorder Research Other*[id number] 05/13/2011 04/07/2016 Obstructive sleep apnea 01/18/2011 12/27/19 [...] as of this encounter (statuses as of 05/17/2022) Immunizations Name Administration Dates Next Due COVID-19 [...] encounter Miscellaneous Notes * Telephone Encounter - Cecil Padilla RN - 05/17/2022 10:16 AM EDT Called patient and informed. * Telephone Encounter - Brianne Triana RN - 05/12/2022 3:10 PM EDT I left a message for the patient to return my call. * Telephone Encounter - Brianne Triana RN - 05/12/2022 2:50 PM EDT ----- Message from ZAK Bolton sent at 05/12/2022 2:46 PM EDT ----- Please let patient know that her abdominal ultrasound did not show any signs of HCC however exam was limited and we may consider obtaining a CT of the liver in the future for HCC surveillance. ZAK Schreiber documented in this encounter Plan of Treatment Upcoming Encounters Date Type Specialty Care Team Description 05/19/2022 Hem/Onc Treatment Hematology Oncology [place], Chair 11 Hem Onc [facility] [address] 05/24/2022 Home Visit Family Medicine Kaylee Barakat, [facility] Health Machine Assembler For Puller Over [address] [place] [address] 05/30/2022 Office Visit Gynecology Obstetrics Susan Jara MD [address] [place] [address] 05/31/2022 Telemedicine [facility] Aleyda Campos PA-C 132 [place] [address] Kaylee Barakat, [facility] Health Machine Assembler For Puller Over [address] [place] [address] 06/01/2022 Office Visit Pharmacy Pharmacist1, [facility] 200 [facility] [place] [address] 06/02/2022 Home Visit [facility] July Poe RN [address] [facility] [address] 06/24/2022 Office Visit Sleep Disorders Love Francisco DO 132 [facility] [place] [address] 07/04/2022 Office Visit Gynecology Obstetrics Concetta Khan MD 400 [facility] [place], [place] [address] 08/23/2022 Office Visit Endocrinology Alberta Duque PA-C [address] [place] [address] 08/30/2022 Office Visit Gastroenterology Lyssa Stout CRNP 132 [facility] [place] [address] 09/14/2022 PulmDiagnostic Pulmonary Function West, Pft 132 [facility] [place] [address] 09/28/2022 Office Visit Pulmonary Reynaldo Marquez MD [address] [place] [address] 10/26/2022 Office Visit Hematology Oncology Tono Sanchez MD [address] [place] [address] Scheduled Procedures Name Priority Associated Diagnoses Date/Ti [...] of this encounter Implants Implanted Type Area Bolt Man Device Identifier Shelf Expiration Date Model / Serial / Lot Microtech Sure Clip Implanted:Qty: 2 on 06/03/2020 by Janis Hatch DO at OR [facility] Clip N/A: Colon 04/21/2022 [facility]-F-26-2 35-C-R / / [id number] documented as of this encounter Additional Health Concerns Infection Onset Date Last Indicated Resolved Time COVID-19 (confirmed) 04/29/2022 04/29/2022 documented as of this encounter Advance Directives Documents on File Type Date Recorded Patient Psychiatric Nurse Practitioner 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 WILL AND HEALTH CARE POA Power of Steep Tender 04/29/2021 12:00 AM TOM R [facility] POA Advanced Directive 04/01/2021 1:14 [...] Bustos Spouse Emergency Contact Care Teams Patient Intake Coordinator Relationship Specialty Start Date End Date Vanita Dunn MD [address] [place] [address] PCP - General Family Medicine 03/16/21 documented as of this encounter
--- OUTSIDE RECORDS SUMMARY | 2023-05-10 18:19 | External Medical Summary | Summary of Care ---
Author Name Unknown Organization [place] [address] Care Team Providers Care Mri Technologist Name Role Phone Vanita Dunn MD Primary Care Provid er Encounter Details Date Type Department Care Team Description 05/17/2022 Orders Only Outcomes Research Department [address] [place] [address] Lelia Munson CHRA [employer] Research Other*[id number] 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 documented as of this encounter (statuses as of 05/17/2022) Medications Medication Sig Dispensed Refills Start Date End Date Status nystatin (NYSTOP) 456522 UNIT/GM powder Apply topically to affected area 3 times a day. 60 g 1 10/16/2019 Active Dexcom G6 Supply Chain Coordinator Device Use as directed. To test blood sugars 4 times a day Dx E11.9 1 Each 0 09/14/2020 Active Dexcom G6 Transmitter Use as directed. To test blood sugars 4 times a day. Change every 90 days. Dx E11.9 1 Each 3 09/14/2020 Active OneTouch Verio In Vitro Strip (Glucose Blood) TESTING once daily 100 Strip 3 10/29/2020 Active OneTouch Delica Plus Haqzci95I TESTING once daily 100 Each 3 10/29/2020 [...] pain 01/24/2012 01/17/2017 Genetic Sleep Disorder Research Other*[id number] 05/13/2011 04/07/2016 Obstructive sleep apnea 01/18/2011 12/27/19 [...] Chair 11 Hem Onc Scenery [address] [place] [address] 05/24/2022 Home Visit Family Medicine Kaylee Barakat, [facility] Macroeconomics Professor [address] [place] [address] 05/30/2022 Office Visit Gynecology Obstetrics Susan Jara MD [address] [place] [address] 05/31/2022 Telemedicine [facility] Aleyda Campos PA-C 132 [facility] [place] [address] Kaylee Barakat, Community [facility] Macroeconomics Professor [address] [place] [address] 06/01/2022 Office Visit Pharmacy Pharmacist1, [facility] 200 [place] [address] 06/02/2022 Home Visit [facility] July Poe RN 132 [facility] [place] [address] 06/24/2022 Office Visit Sleep Disorders Love Francisco DO [address] [place] [address] 07/04/2022 Office Visit Gynecology Obstetrics Concetta Khan MD [address] [place] [address] 08/23/2022 Office Visit Endocrinology Alberta Duque PA-C [address] [place] [address] 08/30/2022 Office Visit Gastroenterology Lyssa Stout CRNP [address] [place] [address] 09/14/2022 PulmDiagnostic Pulmonary Function West, Pft [address] [place] [address] 09/28/2022 Office Visit Pulmonary Reynaldo Marquez MD [address] [facility], [place] [address] 10/26/2022 Office Visit Hematology Oncology Tono Sanchez MD 200 [place] [address] Scheduled Orders Name Type Priority Associated Diagnoses Orde r Schedule MYCODE SUBSEQUENT ADULT Lab Routine MyCode Research Other*[id number] Every 6 Months for 2 Occurrences starting 05/17/2022 until 06/06/2023 Scheduled Procedures Name Priority Associated Diagnoses Date/Ti [...] of this encounter Implants Implanted Type Area Stonecutter Assistant Device Identifier Shelf Expiration Date Model / Serial / Lot Microtech Sure Clip Implanted:Qty: 2 on 06/03/2020 by Janis Hatch DO at OR [facility] Clip N/A: Colon 04/21/2022 [facility]-F-26-2 35-C-R / / [id number] documented as of this encounter Visit Diagnoses Diagnosis MyCode Research Other*[id number] documented in this encounter Additional Health Concerns Infection Onset Date Last Indicated Resolved Time COVID-19 (confirmed) 04/29/2022 04/29/2022 documented as of this encounter Advance Directives Documents on File Type Date Recorded Patient Auto Body Shop Manager 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 WILL AND HEALTH CARE POA Power of [facility] 04/29/2021 12:00 AM TOM R [facility] POA Advanced Directive 04/01/2021 1:14 PM Advanced [...] Syed Bustos Spouse Emergency Contact Care Teams Mri Technologist Relationship Specialty Start Date End Date Vanita Dunn MD [address] [place] [address] PCP - General Family Medicine 03/16/21 documented as of this encounter
--- OUTSIDE RECORDS SUMMARY | 2023-05-10 18:20 | External Medical Summary | Summary of Care ---
Author Name Unknown Organization [facility] [place] [address] Care Team Providers Care Firmware Software Verification Engineer Name Role Phone Vanita Dunn MD Primary Care Provid er Reason for Visit * Reason Onset Date Comments [facility]: Maintenance 05/14/2022 Encounter Details Date Type Department Care Team Description 05/14/2022 Scheduled Telephone [facility], [facility] [address] [facility] [place] [address] [facility], Nurse [facility] [address] [facility] [place] [address] 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 documented as of this encounter (statuses as of 05/14/2022) Medications Medication Sig Dispensed Refills Start Date End Date Status nystatin (NYSTOP) 069942 UNIT/GM powder Apply topically to affected area 3 times a day. 60 g 1 10/16/2019 Active Dexcom G6 Money Position Officer Device Use as directed. To test blood sugars 4 times a day Dx E11.9 1 Each 0 09/14/2020 Active Dexcom G6 Transmitter Use as directed. To test blood sugars 4 times a day. Change every 90 days. Dx E11.9 1 Each 3 09/14/2020 Active OneTouch Verio In Vitro Strip (Glucose Blood) TESTING once daily 100 Strip 3 10/29/2020 Active OneTouch Delica Plus [id number] TESTING once daily 100 Each 3 10/29/2020 [...] goal of less than 7.0% ([facility]) USE TO INJECT INSULIN FOUR TIMES DAILY. [...] as of this encounter (statuses as of 05/14/2022) Active Problems Problem Noted Date Hypertensive heart [...] as of this encounter (statuses as of 05/14/2022) Resolved Problems Problem Noted Date Resolved Date [...] pain 01/24/2012 01/17/2017 Genetic Sleep Disorder Research Other*[id number] 05/13/2011 04/07/2016 Obstructive sleep apnea 01/18/2011 12/27/19 [...] as of this encounter (statuses as of 05/14/2022) Immunizations Name Administration Dates Next Due COVID-19 [...] encounter Miscellaneous Notes * Telephone Encounter - Alyce Tyler RN - 05/14/2022 11:15 AM EDT Phone call placed to pt to follow up with bronchitis. Pt saw Dr Mona yesterday for hospital follow up. Pt reported continued cough with dark phlegm. Pt 13 days since testing positive for Covid. Urine also reported to be dark, poss UTI. Pt was ordered an extended course of Cefuroxime for cough and UTI s/s. Pt did not answer call. LMOM requesting a return call to [facility] for assessment. [phone]# given. documented in this encounter Plan of Treatment Upcoming Encounters Date Type Specialty Care Team Description 05/19/2022 Hem/Onc Treatment Hematology Oncology Park, Chair 11 Hem Onc Scenery 200 [facility] [place] [address] 05/24/2022 Home Visit Family Medicine Kaylee Barakat, Community Health Section Laborer [address] [place] [address] 05/30/2022 Office Visit Gynecology Obstetrics Susan Jara MD [address] [place] [address] 05/31/2022 Telemedicine [facility] Aleyda Campos PA-C [address] [place] [address] Kaylee Barakat, Community Health Section Laborer [address] [place] [address] 06/01/2022 Office Visit Pharmacy Pharmacist1, [facility] [address] [facility] [address] [facility] [address] 06/02/2022 Home Visit [facility] July Poe RN [address] [place] [address] 06/24/2022 Office Visit Sleep Disorders Love Francisco DO [address] [place] [address] 07/04/2022 Office Visit Gynecology Obstetrics Concetta Khan MD [address] [facility] [place], [place] [phone] 08/23/2022 Office Visit Endocrinology Alberta Duque PA-C [address] [place] [address] 08/30/2022 Office Visit Gastroenterology Lyssa Stout, ZAK [address] [place] [address] 09/14/2022 PulmDiagnostic Pulmonary Function [place], Pft [facility] [address] 09/28/2022 Office Visit Pulmonary Reynaldo Marquez MD [address] [place], [place] [id number] 10/26/2022 Office Visit Hematology Oncology Tono Sanchez MD 200 [place] [address] Scheduled Procedures Name Priority Associated Diagnoses Date/Ti [...] of this encounter Implants Implanted Type Area Planning Coordinator Device Identifier Shelf Expiration Date Model / Serial / Lot Microtech Sure Clip Implanted:Qty: 2 on 06/03/2020 by Janis Hatch DO at OR [facility] Clip N/A: Colon 04/21/2022 ROCC-F-26-2 35-C-R / / [id number] documented as of this encounter Additional Health Concerns Infection Onset Date Last Indicated Resolved Time COVID-19 (confirmed) 04/29/2022 04/29/2022 documented as of this encounter Advance Directives Documents on File Type Date Recorded Patient Orthotics Assistant 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 AND HEALTH CARE POA Power of Inspector Receiving 04/29/2021 12:00 AM TOM R OF BELT AND LINK SHOP SUPERVISOR HEALTH CARE POA Advanced Directive 04/01/2021 [...] File Name Relationship [facility] Syed Bustos Spouse Emergency Contact Care Teams Firmware Software Verification Engineer Relationship Specialty Start Date End Date Vanita Dunn MD [address] [place] [address] PCP - General Family Medicine 03/16/21 documented as of this encounter
--- OUTSIDE RECORDS SUMMARY | 2023-05-10 18:20 | External Medical Summary | Summary of Care ---
Author Name Unknown Organization [facility] Address [place] [address] Care Team Providers Care Civil Division Commander Deputy Sheriff Name Role Phone Vanita Dunn MD Primary Care Provid er Encounter Details Date Type Department Care Team Description 05/01/2022 Result Scan Unspecified Department <No scans attached> 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 documented as of this encounter (statuses as of 05/13/2022) Medications Medication Sig Dispensed Refills Start Date End Date Status nystatin (NYSTOP) 308779 UNIT/GM powder Apply topically to affected area 3 times a day. 60 g 1 10/16/2019 Active Dexcom G6 Ediphone Operator Device Use as directed. To test blood sugars 4 times a day Dx E11.9 1 Each 0 09/14/2020 Active Dexcom G6 Transmitter Use as directed. To test blood sugars 4 times a day. Change every 90 days. Dx E11.9 1 Each 3 09/14/2020 Active OneTouch Verio In Vitro Strip (Glucose Blood) TESTING once daily 100 Strip 3 10/29/2020 Active OneTouch Delica Plus [id number] TESTING once daily 100 Each 3 10/29/2020 [...] hemoglobin A1c goal of less than 7.0% ([facility]) USE TO INJECT INSULIN FOUR [...] hemoglobin A1c goal of less than 7.0% ([facility]) inject 4.5mg (1 pen) under the skin once weekly 6 mL 5 02/22/2022 Active Aspirin 81 MG Oral Tablet Chewable CHEW AND SWALLOW 1 TABLET BY MOUTH ONCE DAILY 30 Tablet 8 03/12/2022 Active NovoLOG FlexPen 100 UNIT/ML Subcutaneous Solution Pen-injectorIndicatio ns:Type 2 diabetes mellitus with hemoglobin A1c goal of less than 8.0% ([facility]) 35 Units at breakfast, 39 [...] to wound 85 g 11 04/29/2022 Active Hospital, Clinic, or Other Facility Administered [...] as of this encounter (statuses as of 05/13/2022) Active Problems Problem Noted Date Hypertensive heart [...] as of this encounter (statuses as of 05/13/2022) Resolved Problems Problem Noted Date Resolved Date [...] pain 01/24/2012 01/17/2017 Genetic Sleep Disorder Research Other*[id number] 05/13/2011 04/07/2016 Obstructive sleep apnea 01/18/2011 12/27/19 [...] as of this encounter (statuses as of 05/13/2022) Immunizations Name Administration Dates Next Due COVID-19 [...] Encounters Date Type Specialty Care Team Description 05/14/2022 Scheduled Telephone [facility], Nurse Brady Chavez [address] [place] [address] 05/19/2022 Hem/Onc Treatment Hematology Oncology Park, Chair 11 Hem Onc Scenery 200 [facility] [place] [address] 05/24/2022 Home Visit Family Medicine Kaylee Barakat, Community Health Manager Resource [address] [place] [address] 05/30/2022 Office Visit Gynecology Obstetrics Susan Jara MD [address] [place] [id number] 05/31/2022 Telemedicine [facility] Aleyda Campos PA-C [address] [place] [address] Kaylee Barakat, Community Health Manager Resource [address] [place] [address] 06/01/2022 Office Visit Pharmacy Pharmacist1, [facility] [address] [place] [address] 06/02/2022 Home Visit [facility] July Poe, RN [address] [place] [address] 06/24/2022 Office Visit Sleep Disorders Love Francisco DO [address] [place] [address] 07/04/2022 Office Visit Gynecology Obstetrics Concetta Khan MD 400 [facility] [place] [address] 08/23/2022 Office Visit Endocrinology Alberta Duque PA-C [address] [place] [address] 08/30/2022 Office Visit Gastroenterology Lyssa Stout, MOLD INSPECTOR 132 [facility] [place] [address] 09/14/2022 PulmDiagnostic Pulmonary Function West, Pft 132 [facility] [place] [address] 09/28/2022 Office Visit Pulmonary [facility]aldo [facility]quez [facility] [address] [facility] [phone] 10/26/2022 Office Visit Hematology Oncology Tono Sanchez MD [address] [place] [address] Scheduled Procedures Name Priority Associated Diagnoses Date/Ti [...] of this encounter Implants Implanted Type Area Casino Operations Supervisor Device Identifier Shelf Expiration Date Model / Serial / Lot Microtech Sure Clip Implanted:Qty: 2 on 06/03/2020 by Janis Hatch DO at OR [facility] Clip N/A: Colon 04/21/2022 [facility]-F-26-2 35-C-R / / [id number] documented as of this encounter Procedures Procedure Name Priority Date/Time Associated Diagnosis Comments EKG SCANNED RESULT 05/01/2022 OUTSIDE LAB RESULTS 04/30/2022 documented in this encounter Results * EKG SCANNED RESULT (05/01/2022) Specimen Narrative * OUTSIDE LAB RESULTS (04/30/2022) Specimen Narrative documented in this encounter Additional Health Concerns Infection Onset Date Last Indicated Resolved Time COVID-19 (confirmed) 04/29/2022 04/29/2022 documented as of this encounter Advance Directives Documents on File Type Date Recorded Patient Macroeconomics Professor 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 WILL AND HEALTH CARE POA Power of Parakeet Raiser 04/29/2021 12:00 AM TOM R OF DRAW PRESS OPERATOR HEALTH CARE POA Advanced Directive 04/01/2021 [...] Bustos Spouse Emergency Contact Care Teams Civil Division Commander Deputy Sheriff Relationship Specialty Start Date End Date Vanita Dunn MD [address] [place] [address] PCP - General Family Medicine 03/16/21 documented as of this encounter
--- OUTSIDE RECORDS SUMMARY | 2023-05-10 18:20 | External Medical Summary | Summary of Care ---
Author Name Unknown Organization [facility] Address [place] [address] Care Team Providers Care Sales Center Associate Name Role Phone Vanita Dunn MD Primary Care Provid er Reason for Visit * Reason Onset Date Comments Hospital Follow-Up Hospital Follow-Up 05/13/2022 Encounter Details Date Type Department Care Team Description 05/13/[address] [facility] [address] [place] [address] Vanita Dunn MD [address] [place] [address] Hospital discharge follow-up*; Bronchitis, complicated; Restrictive lung disease; THAD on CPAP; Other cirrhosis of liver (HCC) 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 documented as of this encounter (statuses as of 05/13/2022) Medications Medication Sig Dispensed Refills Start Date End Date Status nystatin (NYSTOP) 843903 UNIT/GM powder Apply topically to affected area 3 times a day. 60 g 1 10/16/2019 Active Dexcom G6 Safety Relief Valve Technician Device Use as directed. To test blood sugars 4 times a day Dx E11.9 1 Each 0 09/14/2020 Active Dexcom G6 Transmitter Use as directed. To test blood sugars 4 times a day. Change every 90 days. Dx E11.9 1 Each 3 09/14/2020 Active OneTouch Verio In Vitro Strip (Glucose Blood) TESTING once daily 100 Strip 3 10/29/2020 Active OneTouch Delica Plus [id number] TESTING once daily 100 Each 3 10/29/2020 [...] TIMES DAILY. 400 Each 3 08/23/2021 Active Budesonide-Formoter ol Fumarate 160-4.5 MCG/ACT Inhalation [...] 05/12/2022 Active Cefuroxime Axetil 250 MG Oral TabletIndications:B ronchitis, complicated Take by mouth 1 Tablet in the morning AND 1 Tablet before bedtime. 20 Tablet 0 05/13/2022 Active Benzonatate 200 MG Oral CapsuleIndications: Bronchitis, complicated Take by mouth 1 Capsule as needed in the morning AND 1 Capsule as needed at noon AND 1 Capsule as needed in the evening for Cough. 30 Capsule 1 05/13/2022 Active Benzonatate 100 MG Oral Capsule (Tessalrosi Perlmelia)Indications: Bronchitis, complicated Take 1 Capsule by mouth 3 times a day as needed for Cough. 30 Capsule 1 09/17/2021 2 Discontinue d(Refill) Cefuroxime Axetil 250 MG Oral Tablet 0 05/04/2022 2 Discontinue d(Refill) Hospital, Clinic, or Other [...] pain 01/24/2012 01/17/2017 Genetic Sleep Disorder Research Other*[id number] 05/13/2011 04/07/2016 Obstructive sleep apnea 01/18/2011 12/27/19 [...] Date Never Smoker Smokeless Tobacco: Never Used Tobacco Cessation:Counseling Given: Yes Alcohol Use Standard Drinks/Week Comments Not Currently [...] Sign Reading Time Taken Comments Blood Pressure 118/78 05/13/2022 11:03 AM EDT Pulse 56 05/13/2022 11:03 AM EDT Temperature 36.2 C (97.2 F) 05/13/2022 11:03 AM E DT Respiratory Rate 20 05/13/2022 11:03 AM EDT Oxygen Saturation 97% 05/13/2022 11:03 AM EDT Inhaled Oxygen Concentration - - [...] Progress Notes * Vanita Dunn MD - 05/13/2022 11:22 AM EDT ASSESSMENT / PLAN: Hospital discharge follow-up (Primary) - DISCH MED RECON CUR MED LIS Bronchitis, complicated - Cefuroxime Axetil 250 MG Oral Tablet; Take by mouth 1 Tablet in the morning AND 1 Tablet before bedtime. - Benzonatate 200 MG Oral Capsule; Take by mouth 1 Capsule as needed in the morning AND 1 Capsule as needed at noon AND 1 Capsule as needed in the evening for Cough. - DISCH MED RECON CUR MED LIS Restrictive lung disease - DISCH MED RECON CUR MED LIS THAD on CPAP - DISCH MED RECON CUR MED LIS Other cirrhosis of liver (HCC) - DISCH MED RECON CUR MED LIS Shaina Bustos is a 67 year old female with PMHx wheelchair bound, h/o CP, chronic diastolic HF, cirrhosis of liver NAFLD complicated by esoph varices and portal hypertensive gastropathy, T2DM, morbid obesity, htn, hld , THAD on CPAP, restrictive lung disease, moderate persistent asthma, and chronicpain / - here for BALDOMERO - admitted 04/29 - 05/01 for hepatic encephalopathy / hyperammonemia / UTI - ammonia level 125 -> 67 upon DC Hepatic encephalopathy is resolved Recommend continue lactulose Recommend extended course of cefuroxime for UTI and cough symptoms, add tessalon perles If needed, prefers contact by: Ok to leave message on phone: SUBJECTIVE: Nursing Notes: Keyonna Barillas, SIGN ERECTOR 05/13/22 1132 Signed Patient is taking Robutussin with neb treatments but states those are not therapeutic at this time. HPI: Shaina Bustos is a 67 year old female. here for BALDOMERO - admitted 04/29 - 05/01 for hepatic encephalopathy / hyperammonemia / UTI - ammonia level 125 -> 67 upon DC Today notes mentation is better. Still some cough and dark phlegm with covid symptoms, she is aboutday 13 since testing positive. HH aide accompanies today, notes her urine is still pretty dark and wonders if she is still having UTI. Patient Active Problem List Diagnosis Code Venous [...] Chronic pain syndrome G89.4 MEDICATION USE AGREEMENT [id number] Cirrhosis of liver (HCC) K74.60 THAD on [...] Current Outpatient Medications Medication Sig Dispense Refill Cefuroxime Axetil 250 MG Oral Tablet Take by mouth 1 Tablet in the morning AND 1 Tablet before bedtime. 20 Tablet 0 Benzonatate 200 MG Oral Capsule Take by mouth 1 Capsule as needed in the morning AND 1 Capsule as needed at noon AND 1 Capsule as needed in the evening for Cough. 30 Capsule 1 nystatin (NYSTOP) 970805 UNIT/GM powder Apply topically to affected area 3 times a day. 60 g 1 Dexcom G6 Safety Relief Valve Technician Device Use as directed. To test blood sugars 4 times a day Dx E11.9 1 Each 0 Dexcom G6 Transmitter Use as directed. To test blood sugars 4 times a day. Change every 90 days. Dx E11.9 1 Each 3 OneTouch Verio In Vitro Strip (Glucose Blood) TESTING once daily 100 Strip 3 OneTouch Delica Plus [id number] TESTING once daily 100 Each 3 Nitroglycerin [...] NOSTRIL ONCE DAILY DIRECTED 16 g 5 Levothyroxine Sodium 175 MCG Oral Tablet (Levoxyl) Take 1 Tab by mouth daily. (at least 30 min prior to breakfast or other meds) 35 Tab 11 Linzess 290 MCG Oral Capsule (linaCLOtide) TAKE 1 CAPSULE BY MOUTH ONCE DAILY BEFORE BREAKFAST 90 Capsule 1 BD Pen Needle Mini U/F 31G X 5 MM (Insulin Pen Needle) USE TO INJECT INSULIN FOUR TIMES DAILY. 400 Each 3 Budesonide-Formoterol Fumarate 160-4.5 MCG/ACT Inhalation Aerosol (Symbicort) Inhale by mouth 2Puffs 2 times a day . 10.2 g 1 Dexcom G6 Sensor use as directed to test blood sugar 4 times daily. change sensor every 10 days3 Each 3 traMADol HCl 50 MG Oral Tablet (Ultram) TAKE 1 TABLET BY MOUTH TWICE DAILY NEEDED FOR SEVEREPAIN 20 Tablet 0 Disposable Brief X-Large Use as directed 60 [...] BY MOUTH AT BEDTIME 90 Tablet 3 Current Facility-Administered Medications Medication Dose Route Frequency Provider Last Rate Last Admin Albuterol Sulfate (Proventil) (2.5 MG/3ML) 0.083% inhalation solution 2.5 mg 2.5 mg Nebulizer PRN William Morales PA-C Albuterol Sulfate (Proventil) (5 MG/ML) 0.5% *conc* inhalation solution 2.5 mg 2.5 mg NebulizerPRShae Morales PA-C OBJECTIVE: BP 118/78 | Pulse 56 | Temp 36.2 C (97.2 F) (Tympanic) | Resp 20 | SpO2 97% Vitals reviewed and is normotensive afebrile and not tachycardic and not hypoxic General: No acute distress. Neuro: Alert Pleasant & interactive. Sitting upright in wheelchair. Respiratory: Good inspiratory effort, no labored breathing. CTAB HEENT: Conjunctivae appear clear. No swelling noted face or lips. Skin: No rash visible on exposed skin areas, normal coloration & appears dry. Psych: Normal affect. Fluent speech. Vanita Dunn MD [address] [phone] There are no Patient Instructions on file for this visit. documented in this encounter Nursing Notes * Keyonna Barillas LPN - 05/13/2022 11:01 AM EDT Patient is taking Robutussin with neb treatments but states those are not therapeutic at this time. documented in this encounter Plan of Treatment Upcoming Encounters Date Type Specialty Care Team Description 05/14/2022 Scheduled Telephone [facility] Region, Nurse Brady Chavez 132 [facility] [place] [address] 05/19/2022 Hem/Onc Treatment Hematology Oncology Park, Chair 11 Hem Onc [facility] [address] [place] [address] 05/24/2022 Home Visit Family Medicine Kaylee Barakat, Community Health Dentist [address] [place], [place] [phone] 05/30/2022 Office Visit Gynecology Obstetrics Susan Jara MD [address] [place] [address] 05/31/2022 Telemedicine [facility] Aleyda Campos PA-C 132 [facility] [place] [address] Kaylee Barakat, Community Health Dentist [address] [place] [address] 06/01/2022 Office Visit Pharmacy Pharmacist1, [facility] 200 [place] [address] 06/02/2022 Home Visit [facility] July Poe, RN [address] [place] [address] 06/24/2022 Office Visit Sleep Disorders Love Francisco DO [address] [place] [address] 07/04/2022 Office Visit Gynecology Obstetrics Concetta Khan MD [address] [place], [place] [phone] 08/23/2022 Office Visit Endocrinology Alberta Duque PA-C [address] [place] [address] 08/30/2022 Office Visit Gastroenterology Lyssa Stout, REPORT CLERK 132 [place] [address] 09/14/2022 PulmDiagnostic Pulmonary Function West, Pft [facility] [place] [address] 09/28/2022 Office Visit Pulmonary [facility] [address] [facility] [address] 10/26/2022 Office Visit Hematology Oncology Tono Sanchez MD 200 [place] [address] Scheduled Procedures Name Priority Associated Diagnoses Date/Ti [...] of this encounter Implants Implanted Type Area Management Architect Device Identifier Shelf Expiration Date Model / Serial / Lot Microtech Sure Clip Implanted:Qty: 2 on 06/03/2020 by Janis Hatch DO at OR [facility] Clip N/A: Colon 04/21/2022 [facility]-F-26-2 35-C-R / / [id number] documented as of this encounter Visit Diagnoses Diagnosis Hospital discharge follow-up- Primary Other follow-up examination Bronchitis, complicated Bronchitis, not specified as acute or chronic Restrictive lung disease Other diseases of lung, not elsewhere classified THAD on CPAP Obstructive sleep apnea (adult) (pediatric) Other cirrhosis of liver (HCC) documented in this encounter Additional Health Concerns Infection Onset Date Last Indicated Resolved Time COVID-19 (confirmed) 04/29/2022 04/29/2022 documented as of this encounter Advance Directives Documents on File Type Date Recorded Patient Shipping Inspector 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 WILL AND HEALTH CARE POA Power of Revolving Inventory Clerk 04/29/2021 12:00 AM TOM R OF [place] REGENERATOR HEALTH CARE POA Advanced Directive 04/01/2021 1:14 [...] Syed Bustos Spouse Emergency Contact Care Teams Sales Center Associate Relationship Specialty Start Date End Date Vanita Dunn MD [address] [place] [phone] PCP - General Family Medicine 03/16/21 documented as of this encounter"
--- OUTSIDE RECORDS SUMMARY | 2023-05-10 18:21 | External Medical Summary | Summary of Care ---
Author Name Unknown Organization [facility] Address [place] [address] Care Team Providers Care Cylinder Batcher Name Role Phone Vanita Dunn MD Primary Care Provid er Encounter Details Date Type Department Care Team Description 05/13/2022 Orders Only [place] [address] [place] [address] Vanita Dunn MD [address] [place] [address] 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 documented as of this encounter (statuses as of 05/13/2022) Medications Medication Sig Dispensed Refills Start Date End Date Status nystatin (NYSTOP) 251530 UNIT/GM powder Apply topically to affected area 3 times a day. 60 g 1 10/16/2019 Active Dexcom G6 School Plant Consultant Device Use as directed. To test blood sugars 4 times a day Dx E11.9 1 Each 0 09/14/2020 Active Dexcom G6 Transmitter Use as directed. To test blood sugars 4 times a day. Change every 90 days. Dx E11.9 1 Each 3 09/14/2020 Active OneTouch Verio In Vitro Strip (Glucose Blood) TESTING once daily 100 Strip 3 10/29/2020 Active OneTouch Delica Plus [id number] TESTING once daily 100 Each 3 10/29/2020 [...] goal of less than 7.0% ([facility]) USE TO INJECT INSULIN FOUR [...] pain 01/24/2012 01/17/2017 Genetic Sleep Disorder Research Other*[id number] 05/13/2011 04/07/2016 Obstructive sleep apnea 01/18/2011 12/27/19 [...] Specialty Care Team Description 05/14/2022 Scheduled Telephone [facility], Nurse [address] [place] [address] 05/19/2022 Hem/Onc Treatment Hematology Oncology [place], Chair [address] Hem On[address] [place] [address] 05/24/2022 Home Visit Family Medicine Kaylee Barakat, Community Health Skull Grinder [address] [place] [address] 05/30/2022 Office Visit Gynecology Obstetrics Susan Jara MD [address] [place] [address] 05/31/2022 [facility]medicine [facility] Aleyda Campos PA-C 132 [facility] [place] [address] Kaylee Barakat, Community Health Skull Grinder [address] [place] [address] 06/01/2022 Office Visit Pharmacy Pharmacist1, [facility] 200 [facility] [place] [address] 06/02/2022 Home Visit [facility] July Poe RN 132 [place] [address] 06/24/2022 Office Visit Sleep Disorders Love Francisco DO 132 [facility] [place] [address] 07/04/2022 Office Visit Gynecology Obstetrics Cocnetta Khan MD [address] [place] [address] 08/23/2022 Office Visit Endocrinology Alberta Duque PA-C [address] [place] [address] 08/30/2022 Office Visit Gastroenterology Lyssa Stout, ZAK 132 [facility] [place] [address] 09/14/2022 PulmDiagnostic Pulmonary Function West, Pft 132 [facility] [place] [address] 09/28/2022 Office Visit Pulmonary Reynaldo Marquez MD [address] [place] [address] 10/26/2022 Office Visit Hematology Oncology Tono Sanchez MD 200 [place] [address] Scheduled Procedures Name Priority Associated Diagnoses Date/Ti [...] of this encounter Implants Implanted Type Area Medical Receptionist Medical Assistant Device Identifier Shelf Expiration Date Model / Serial / Lot Microtech Sure Clip Implanted:Qty: 2 on 06/03/2020 by Janis Hatch DO at OR [facility] Clip N/A: Colon 04/21/2022 [facility]-F-26-2 35-C-R / / [id number] documented as of this encounter Procedures Procedure Name Priority Date/Time Associated Diagnosis Comments XR CHEST 1 VIEW Routine 04/30/2022 documented in this encounter Results * XR CHEST 1 VIEW (04/30/2022) Anatomical Region Laterality Modality Chest Other Specimen Narrative OUTSIDE LAB (SEE SCANNED REPORT) documented in this encounter Additional Health Concerns Infection Onset Date Last Indicated Resolved Time COVID-19 (confirmed) 04/29/2022 04/29/2022 documented as of this encounter Advance Directives Documents on File Type Date Recorded Patient Licensed Club Manager 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 WILL AND HEALTH CARE POA Power of Xerox Machine Operator 04/29/2021 12:00 AM TOM R OF [employer] TECHNICIAN HEALTH CARE POA Advanced Directive 04/01/2021 1:14 [...] on File Name Relationship Healthcare Agent [facility] p Communication Syed Bustos Spouse Emergency Contact Care Teams Cylinder Batcher Relationship Specialty Start Date End Date Vanita Dunn MD [address] [place] [address] PCP - General Family Medicine 03/16/21 documented as of this encounter
--- OUTSIDE RECORDS SUMMARY | 2023-05-10 18:21 | External Medical Summary | Summary of Care ---
Author Name Unknown Organization [facility] Address [place] [address] Care Team Providers Care Prom Burn Off Operator Name Role Phone Vanita Dunn MD Primary Care Provid er Reason for Visit * Reason Onset Date Comments [facility]: Maintenance 05/13/2022 Encounter Details Date Type Department Care Team Description 05/13/2022 Telephone [facility], [facility] 132 [facility] [place] [address] [facility], Nurse [facility] 132 [facility] [place] [address] [facility]: Maintenance 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 documented as of this encounter (statuses as of 05/13/2022) Medications Medication Sig Dispensed Refills Start Date End Date Status nystatin (NYSTOP) 900859 UNIT/GM powder Apply topically to affected area 3 times a day. 60 g 1 10/16/2019 Active Dexcom G6 Supervisory Examiner Device Use as directed. To test blood sugars 4 times a day Dx E11.9 1 Each 0 09/14/2020 Active Dexcom G6 Transmitter Use as directed. To test blood sugars 4 times a day. Change every 90 days. Dx E11.9 1 Each 3 09/14/2020 Active OneTouch Verio In Vitro Strip (Glucose Blood) TESTING once daily 100 Strip 3 10/29/2020 Active OneTouch Delica Plus [id number] TESTING once daily 100 Each 3 10/29/2020 [...] BEDTIME 90 Tablet 3 05/12/2022 Active Benzonatate 100 MG Oral Capsule (Tessalon Perles)Indications: Bronchitis, complicated Take 1 Capsule by mouth 3 times a day as needed for Cough. 30 Capsule 1 09/17/2021 2 Discontinue d(Refill) Hospital, Clinic, or Other [...] pain 01/24/2012 01/17/2017 Genetic Sleep Disorder Research Other*[id number] 05/13/2011 04/07/2016 Obstructive sleep apnea 01/18/2011 12/27/19 [...] Telephone Encounter - Jennifer Alexander RN - 05/13/2022 12:04 PM EDT Chart reviewed. Patient seen by PCP today. Scheduled for f/u nurse call on 05/14/2022. Shannan Alexander RN [facility] Dog Groomer [facility] * Telephone Encounter - Jennifer Alexander RN - 05/13/2022 8:08 AM EDT Received triage nurse note (see below). Chart reviewed. Patient scheduled for PCP appt today at 11am. Call to patient at home number listed in chart [phone]. Female stated it was wrong number for patient. Call to patient on cell phone [phone].- msg states voice mail is not yet set up. Unable to leave msg. Call to patients spouse Syed cell at [phone]. Mailbox full. Unable to leave msg. Shannan Alexander RN [facility] Dog Groomer [facility] Tracie Juan RN 8 hours ago (11:35 PM) This is a nurse triage encounter. If additional action is needed, do not route to nurse triage. Please route encounter to the applicable clinic pool. Situation Shaina Bustos, is a 67 year old female c/o cough, which started 05/03. Background (relevant to the situation: PMH, meds, labs, tx tried) Had covid Discharged from hospital 05/03 Wt Readings from Last 1 Encounters: 03/03/22 113.4 kg (250 lb) Assessment (professional conclusion, VS) Coughing up brown phlegm. No fever. Recommendation/Request See pcp in 24 hours Message sent to [facility] Return Phone # if needed: [phone] Reason for Disposition Coughing up tim-colored (reddish-brown) sputum Additional Information Negative: SEVERE difficulty breathing (e.g., struggling for each breath, speaks in single words) Negative: Bluish (or juarez) lips or face now Negative: [1] Difficulty breathing AND [2] exposure to flames, smoke, or fumes Negative: [1] Stridor AND [2] difficulty breathing Negative: Sounds like a life-threatening emergency to the triager Negative: [1] Previous asthma attacks AND [2] this feels like asthma attack Negative: Dry cough (non-productive; no sputum or minimal clear sputum) Negative: [1] MODERATE difficulty breathing (e.g., speaks in phrases, SOB even at rest, pulse 100-120) AND [2] still present when not coughing Negative: Chest pain (Exception: MILD central chest pain, present only when coughing) Negative: Patient sounds very sick or weak to the triager Negative: [1] MILD difficulty breathing (e.g., minimal/no SOB at rest, SOB with walking, pulse <100) AND [2] still present when not coughing Negative: [1] Coughed up blood AND [2] > 1 tablespoon (15 ml) (Exception: blood-tinged sputum) Negative: Fever > 103 F (39.4 C) Negative: [1] Fever > 101 F (38.3 C) AND [2] age > 60 years Negative: [1] Fever > 100.0 F (37.8 C) AND [2] bedridden (e.g., assisted patient, CVA, chronic illness, recovering from surgery) Negative: [1] Fever > 100.0 F (37.8 C) AND [2] diabetes mellitus or weak immune system (e.g., HIV positive, cancer chemo, splenectomy, organ transplant, chronic steroids) Negative: Wheezing is present Negative: [1] Continuous (nonstop) coughing interferes with work or school AND [2] no improvement using cough treatment per Care Advice Negative: SEVERE coughing spells (e.g., whooping sound after coughing, vomiting after coughing) Protocols used: COUGH - ACUTE [id number] Documentation documented in this encounter Plan of Treatment Upcoming Encounters Date Type Specialty Care Team Description 05/14/2022 Scheduled Telephone [facility], Nurse [address] [address] 05/19/2022 Hem/Onc Treatment Hematology Oncology [place], Chair [address] Hem Onc [address] [place] [address] 05/24/2022 Home Visit Family Medicine Kaylee Barakat, Community Health Human Capital Consultant [address] [place] [address] 05/30/2022 Office Visit Gynecology Obstetrics Susan Jara MD [address] [place], [place] [id number] 05/31/2022 Telemedicine [facility] Aleyda Campos PA-C 132 [facility] [place] [address] Kaylee Barakat, Community Health Human Capital Consultant [address] [place] [address] 06/01/2022 Office Visit Pharmacy Pharmacist1, [facility] [address] [place] [address] 06/02/2022 Home Visit [facility] July Poe RN 132 [facility] [place] [address] 06/24/2022 Office Visit Sleep Disorders Love Francisco DO 132 [facility] [place] [address] 07/04/2022 Office Visit Gynecology Obstetrics Concetta Khan MD [address] [place], [place] [phone] 08/23/2022 Office Visit Endocrinology Alberta Duque PA-C [address] [place] [address] 08/30/2022 Office Visit Gastroenterology Lyssa Stout CRNP 132 [facility] [place] [address] 09/14/2022 PulmDiagnostic Pulmonary Function West, Pft 132 [facility] [place] [address] 09/28/2022 Office Visit Pulmonary [facility]do [facility] [address] [facility] [address] 10/26/2022 Office Visit Hematology Oncology Tono Sanchez MD 200 [facility], [place] [address] Scheduled Procedures Name Priority Associated Diagnoses Date/Ti [...] of this encounter Implants Implanted Type Area Scalemaker Device Identifier Shelf Expiration Date Model / Serial / Lot Microtech Sure Clip Implanted:Qty: 2 on 06/03/2020 by Janis Hatch DO at OR [facility] Clip N/A: Colon 04/21/2022 [facility]-F-26-2 35-C-R / / [id number] documented as of this encounter Additional Health Concerns Infection Onset Date Last Indicated Resolved Time COVID-19 (confirmed) 04/29/2022 04/29/2022 documented as of this encounter Advance Directives Documents on File Type Date Recorded Patient Earth Auger Operator 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 WILL AND HEALTH CARE POA Power of Baggage Agent Supervisor 04/29/2021 12:00 AM TOM [facility] CARE [facility] Advanced Directive 04/01/2021 1:14 PM Advanced Directive [...] Name Relationship Healthcare Agent [facility] p Communication Syed Bustos Spouse Emergency Contact Care Teams Prom Burn Off Operator Relationship Specialty Start Date End Date Vanita Dunn MD [address] [place], [place] [id number] PCP - General Family Medicine 03/16/21 documented as of this encounter
--- OUTSIDE RECORDS SUMMARY | 2023-05-10 18:22 | External Medical Summary | Summary of Care ---
Author Name Unknown Organization [place] [address] Care Team Providers Care Tire And Tube Repairer Name Role Phone Kojo Dunn MD Primary Care Provid er Reason for Visit * Reason Comments eRx-Medication Refill Encounter Details Date Type Department Care Team Description 05/12/2022 Refill [place] [address] [place] [address] Kojo Dunn MD [address] [place] [address] Sleep disturbances 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 documented as of this encounter (statuses as of 05/12/2022) Medications Medication Sig Dispensed Refills Start Date End Date Status nystatin (NYSTOP) 106015 UNIT/GM powder Apply topically to affected area 3 times a day. 60 g 1 0 Active Dexcom G6 Weight Shifter Device Use as directed. To test blood sugars 4 times a day Dx E11.9 1 Each 0 1 Active Dexcom G6 Transmitter Use as directed. To test blood sugars 4 times a day. Change every 90 days. Dx E11.9 1 Each 3 1 Active OneTouch Verio In Vitro Strip (Glucose Blood) TESTING once daily 100 Strip 3 1 Active OneTouch Delica Plus [id number] TESTING once daily 100 Each 3 1 [...] TIMES DAILY. 400 Each 3 1 Active Benzonatate 100 MG Oral Capsule (Tessalon Perles)Indications: Bronchitis, complicated Take 1 Capsule by mouth 3 times a day as needed for Cough. 30 Capsule 1 2 Active Budesonide-Formoter ol Fumarate 160-4.5 MCG/ACT Inhalation [...] AT BEDTIME 90 Tablet 3 2 Active traZODone HCl 50 MG Oral Tablet (Desyrel)Indication s:Sleep disturbances TAKE 1 TABLET ONCE DAILY AT BEDTIME 90 Tab 3 1 05/12/20 22 Discontinued Hospital, Clinic, or Other Facility [...] as of this encounter (statuses as of 05/12/2022) Active Problems Problem Noted Date Hypertensive heart [...] as of this encounter (statuses as of 05/12/2022) Resolved Problems Problem Noted Date Resolved Date [...] pain 01/24/2012 01/17/2017 Genetic Sleep Disorder Research Other*[id number] 05/13/2011 04/07/2016 Obstructive sleep apnea 01/18/2011 12/27/19 [...] as of this encounter (statuses as of 05/12/2022) Immunizations Name Administration Dates Next Due COVID-19 [...] encounter Miscellaneous Notes * Telephone Encounter - Jill Laurent, [facility] - 05/12/2022 1:06 PM EDT Signed Prescriptions: Disp Refills traZODone HCl 50 MG Oral Tablet (Desyrel) 90 Tab*3 Sig: TAKE 1 TABLET BY MOUTH AT BEDTIMEAuthorizing Provider: KOJO DUNNOrderyuli User: JILL LAURENT documented in this encounter Plan of Treatment Upcoming Encounters Date Type Specialty Care Team Description 05/13/2022 Office Visit Family Medicine Kojo Dunn MD [address] [place] [id number] 05/19/2022 Hem/Onc Treatment Hematology Oncology [place], Chair 11 Hem Onc [facility] [address] [place] [address] 05/24/2022 Home Visit Family Medicine Kaylee Barakat, [facility] Health Customer Service Cashier [address] [place] [address] 05/30/2022 Office Visit Gynecology Obstetrics Susan Jara MD [address] [place] [address] 05/31/2022 [facility]medicine [facility] Aleyda Campos PA-C 132 [facility] [address] Kaylee Barakat, [facility] Health Customer Service Cashier [address] [place] [address] 06/01/2022 Office Visit Pharmacy Pharmacist1, [facility] 200 [place] [address] 06/02/2022 Home Visit [facility] July Poe RN 132 [place] [facility] [address] 06/24/2022 Office Visit Sleep Disorders Love Francisco, DO 132 [facility] [address] 07/04/2022 Office Visit Gynecology Obstetrics Concetta Khan MD [address] [place], [place] [phone] 08/23/2022 Office Visit Endocrinology Alberta Duque PA-C [address] [place] [address] 08/30/2022 Office Visit Gastroenterology Lyssa Stout CRNP 132 [place] [address] 09/14/2022 PulmDiagnostic Pulmonary Function West, Pft 132 [facility] [place] [address] 09/28/2022 Office Visit Pulmonary Reynaldo Marquez MD [address] [place] [address] 10/26/2022 Office Visit Hematology Oncology Tono Sanchez MD 200 [place] [address] Scheduled Procedures Name Priority Associated Diagnoses Date/Ti [...] of this encounter Implants Implanted Type Area Public Safety Teacher Device Identifier Shelf Expiration Date Model / Serial / Lot Microtech Sure Clip Implanted:Qty: 2 on 06/03/2020 by Janis Hatch DO at OR [facility] Clip N/A: Colon 04/21/2022 [facility]-F-26-2 35-C-R / / [id number] documented as of this encounter Visit Diagnoses Diagnosis Sleep disturbances Sleep disturbance, unspecified documented in this encounter Additional Health Concerns Infection Onset Date Last Indicated Resolved Time COVID-19 (confirmed) 04/29/2022 04/29/2022 documented as of this encounter Advance Directives Documents on File Type Date Recorded Patient Electrolysis Engineer 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 WILL AND HEALTH CARE POA Power of Emblem Maker 04/29/2021 12:00 AM TOM R OF POST DOCTORAL RESEARCHER HEALTH CARE POA Advanced Directive 04/01/2021 1:14 [...] Agents on File Name Relationship Healthcare Agent [facility] p Communication Syed Bustos Spouse Emergency Contact Care Teams Tire And Tube Repairer Relationship Specialty Start Date End Date Kojo Dunn MD [address] [facility] [place] [id number] PCP - General Family Medicine 03/16/21 documented as of this encounter
--- OUTSIDE RECORDS SUMMARY | 2023-05-10 18:22 | External Medical Summary | Summary of Care ---
Author Name Unknown Organization [facility] Address [place] [address] Care Team Providers Care Bisque Placer Name Role Phone Vanita Dunn MD Primary Care Provid er Reason for Visit * Reason Onset Date Comments [facility]: Maintenance 05/13/2022 Encounter Details Date Type Department Care Team Description 05/13/2022 Telephone [facility], [facility] 132 [facility] [place] [address] [facility], Nurse [facility] 132 [facility] [place] [address] [facility]: Maintenance 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 documented as of this encounter (statuses as of 05/13/2022) Medications Medication Sig Dispensed Refills Start Date End Date Status nystatin (NYSTOP) 847597 UNIT/GM powder Apply topically to affected area 3 times a day. 60 g 1 10/16/2019 Active Dexcom G6 Head Correction Officer Device Use as directed. To test blood sugars 4 times a day Dx E11.9 1 Each 0 09/14/2020 Active Dexcom G6 Transmitter Use as directed. To test blood sugars 4 times a day. Change every 90 days. Dx E11.9 1 Each 3 09/14/2020 Active OneTouch Verio In Vitro Strip (Glucose Blood) TESTING once daily 100 Strip 3 10/29/2020 Active OneTouch Delica Plus Kbrfkh55H TESTING once daily 100 Each 3 10/29/2020 [...] hemoglobin A1c goal of less than 7.0% ([facility]) USE TO INJECT INSULIN FOUR TIMES DAILY. 400 Each 3 08/23/2021 Active Benzonatate 100 MG Oral Capsule (Tessalon Perles)Indications:Br onchitis, complicated Take 1 Capsule by mouth 3 times a day as needed for Cough. 30 Capsule 1 09/17/2021 Active Budesonide-Formoterol Fumarate 160-4.5 MCG/ACT Inhalation Aerosol [...] pain 01/24/2012 01/17/2017 Genetic Sleep Disorder Research Other*[id number] 05/13/2011 04/07/2016 Obstructive sleep apnea 01/18/2011 12/27/19 [...] patient at home number listed in chart [phone]. Female stated it was wrong number for patient. Call to patient on cell phone [phone].- [facility] states voice mail is not yet set up. Unable to leave msg. Call to patients spouse Syed cell at [phone]. Mailbox full. Unable to leave ms. Shannan Alexander RN [facility] Commissioning Manager [facility] Tracie Juan RN 8 [...] pcp in 24 hours Message sent to [facility] Return Phone # if needed: [phone] Reason for Disposition Coughing up tim-colored (reddish-brown) [...] F (37.8 C) AND [2] bedridden (e.g., prison patient, CVA, chronic illness, recovering from surgery) [...] after coughing) Protocols used: COUGH - ACUTE [id number] Documentation documented in this encounter Plan of Treatment Upcoming Encounters Date Type Specialty Care Team Description 05/13/2022 Office Visit Family Medicine Vanita Dunn MD [address] [place] [address] 05/19/2022 Hem/Onc Treatment Hematology [place]cology [place], Chair [address] Hem Onc [address] [place] [address] 05/24/2022 Home Visit Family Medicine Kaylee Barakat, Community Health Physician Asst [address] [place] [address] 05/30/2022 Office Visit Gynecology Obstetrics Susan Jara MD [address] [place] [address] [place] [address] 05/31/2022 Telemedicine [facility] Aleyda Campos PA-C [facility] [place] [address] Kaylee Barakat, Community Health Physician Asst [address] [place] [address] 06/01/2022 Office Visit Pharmacy Pharmacist1, [facility] 200 [place] [address] 06/02/2022 Home Visit [facility] July Poe RN [address] [place] [address] 06/24/2022 Office Visit Sleep Disorders Love Francisco DO 132 [place] [address] 07/04/2022 Office Visit Gynecology Obstetrics Concetta Khan MD [address] [place], [place] [phone] 08/23/2022 Office Visit Endocrinology Alberta Duque PA-C [address] [place] [address] 08/30/2022 Office Visit Gastroenterology Lyssa Stout CRNP [address] [place] [address] 09/14/2022 PulmDiagnostic Pulmonary Function West, Pft [address] [place] [address] 09/28/2022 Office Visit Pulmonary Reynaldo Marquez MD [address] [place] [address] 10/26/2022 Office Visit Hematology Oncology Tono Sanchez MD 200 [place] [address] Scheduled Procedures Name Priority Associated Diagnoses Date/Ti [...] of this encounter Implants Implanted Type Area Otr Tanker Truck Driver Device Identifier Shelf Expiration Date Model / Serial / Lot Microtech Sure Clip Implanted:Qty: 2 on 06/03/2020 by Janis Hatch DO at OR [facility] Clip N/A: Colon 04/21/2022 [facility]-F-26-2 35-C-R / / [id number] documented as of this encounter Additional Health Concerns Infection Onset Date Last Indicated Resolved Time COVID-19 (confirmed) 04/29/2022 04/29/2022 documented as of this encounter Advance Directives Documents on File Type Date Recorded Patient Butcher'S Assistant 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 WILL AND HEALTH CARE POA Power of Applied Psychology Professor 04/29/2021 12:00 AM TOM R OF HEATING OPERATORS ENGINEER HEALTH CARE POA Advanced Directive 04/01/2021 [...] Syed Bustos Spouse Emergency Contact Care Teams Bisque Placer Relationship Specialty Start Date End Date Vanita Dunn MD [address] [place] [address] PCP - General Family Medicine 03/16/21 documented as of this encounter
--- OUTSIDE RECORDS SUMMARY | 2023-05-10 18:23 | External Medical Summary | Summary of Care ---
Author Name Unknown Organization [facility] [place] [address] Care Team Providers Care Banana Ripening Room Supervisor Name Role Phone Vanita Dunn MD Primary Care Provid er Reason for Visit * Reason Onset Date Comments Fax 05/10/2022 Encounter Details Date Type Department Care Team Description 05/10/2022 Telephone [facility] [address] [place] [address] Vanita Dunn MD [address] [place] [address] Fax 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 documented as of this encounter (statuses as of 05/10/2022) Medications Medication Sig Dispensed Refills Start Date End Date Status nystatin (NYSTOP) 295970 UNIT/GM powder Apply topically to affected area 3 times a day. 60 g 1 10/16/2019 Active Dexcom G6 Divorce Attorney Device Use as directed. To test blood sugars 4 times a day Dx E11.9 1 Each 0 09/14/2020 Active Dexcom G6 Transmitter Use as directed. To test blood sugars 4 times a day. Change every 90 days. Dx E11.9 1 Each 3 09/14/2020 Active OneTouch Verio In Vitro Strip (Glucose Blood) TESTING once daily 100 Strip 3 10/29/2020 Active OneTouch Delica Plus [id number] TESTING once daily 100 Each 3 10/29/2020 [...] a meal 90 Tab 3 06/02/2021 Active traZODone HCl 50 MG Oral Tablet (Desyrel)Indications: Sleep disturbances TAKE 1 TABLET ONCE DAILY AT BEDTIME 90 Tab 3 06/11/2021 Active Fluticasone Propionate 50 MCG/ACT Nasal Suspension [...] TWICE DAILY 360 Tablet 1 05/09/2022 Active Hospital, Clinic, or Other Facility Administered [...] as of this encounter (statuses as of 05/10/2022) Active Problems Problem Noted Date Hypertensive heart [...] as of this encounter (statuses as of 05/10/2022) Resolved Problems Problem Noted Date Resolved Date [...] pain 01/24/2012 01/17/2017 Genetic Sleep Disorder Research Other*[id number] 05/13/2011 04/07/2016 Obstructive sleep apnea 01/18/2011 12/27/19 [...] as of this encounter (statuses as of 05/10/2022) Immunizations Name Administration Dates Next Due COVID-19 [...] * Telephone Encounter - THAD Page - 05/10/2022 2:13 PM EDT Faxed. 05/10/2022 * Telephone Encounter - THAD [place] - 05/10/2022 2:03 PM EDT Caller requesting the following information to be faxed: Name/Company of caller: Dulce from [facility] Community Health Choice - Waiver program Information requested to be faxed: Medication list Fax number: [phone] Attention to Name/Company: Dulce Any additional information?: Patient is recovering from COVID and Dulce is unable to do a home visityet and get this information. documented in this encounter Plan of Treatment Upcoming Encounters Date Type Specialty Care Team Description 05/11/2022 Imaging Radiology 05/11/2022 Hem/Onc Treatment Hematology Oncology [place], Chair 9 Hem Onc [facility] [address] [place] [address] 05/13/2022 Office Visit Family Medicine Vanita Dunn MD [address] [place] [address] 05/20/2022 Telemedicine [facility] Joselin Dawson CRNP [address] [place] [address] Kaylee Barakat, Community Health Tax Compliance Representative [address] [place] [address] 05/24/2022 Home Visit Family Medicine Kaylee Barakat, Community Health Tax Compliance Representative [address] [place] [address] 05/30/2022 Office Visit Gynecology Obstetrics Susan Jara MD [address] [place] [address] 06/01/2022 Office Visit Pharmacy Pharmacist1, [facility] [address] [place] [address] 06/02/2022 Home Visit [facility] July Poe, RN 132 [facility] [place] [address] 06/24/2022 Office Visit Sleep Disorders Love Francisco DO [address] [facility] [place] [address] 07/04/2022 Office Visit Gynecology Obstetrics Concetta Khan MD 400 [facility] [place], [place] [id number] 08/23/2022 Office Visit Endocrinology Alberta Duque PA-C [address] [place] [address] 08/30/2022 Office Visit Gastroenterology Lyssa Stout CRNP [address] [facility] [place] [address] 09/14/2022 PulmDiagnostic Pulmonary Function West, Pft [address] [facility] [place] [address] 09/28/2022 Office Visit Pulmonary Reynaldo Marquez MD [address] [place] [facility] [address] 10/26/2022 Office Visit Hematology Oncology Tono Sanchez MD [address] [place] [address] Scheduled Procedures Name Priority Associated Diagnoses Date/Ti [...] of this encounter Implants Implanted Type Area Casting And Curing Operator Device Identifier Shelf Expiration Date Model / Serial / Lot Microtech Sure Clip Implanted:Qty: 2 on 06/03/2020 by Janis Hatch DO at OR [facility] Clip N/A: Colon 04/21/2022 [facility]-F-26-2 35-C-R / / [id number] documented as of this encounter Additional Health Concerns Infection Onset Date Last Indicated Resolved Time COVID-19 (confirmed) 04/29/2022 04/29/2022 documented as of this encounter Advance Directives Documents on File Type Date Recorded Patient Sterilization Specialist 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 WILL AND HEALTH CARE POA Power of Tin Whiz Machine Operator 04/29/2021 12:00 AM TOM R OF ALARM MECHANISM ADJUSTER HEALTH CARE POA Advanced Directive 04/01/2021 1:14 [...] Syed Bustos Spouse Emergency Contact Care Teams Banana Ripening Room Supervisor Relationship Specialty Start Date End Date Vanita Dunn MD [address] [place] [address] PCP - General Family Medicine 03/16/21 documented as of this encounter
--- OUTSIDE RECORDS SUMMARY | 2023-05-10 18:23 | External Medical Summary | Summary of Care ---
Author Name Unknown Organization [facility] Address [place] [address] Care Team Providers Care Teacher Dancing Name Role Phone Vanita Dunn MD Primary Care Provid er Reason for Visit * Reason Comments [facility]: Maintenance Encounter Details Date Type Department Care Team Description 05/10/2022 Home Visit [facility], [facility] 132 [facility] [place] [address] July Poe, RN 132 [facility] [place] [address] 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 documented as of this encounter (statuses as of 05/10/2022) Medications Medication Sig Dispensed Refills Start Date End Date Status nystatin (NYSTOP) 873399 UNIT/GM powder Apply topically to affected area 3 times a day. 60 g 1 10/16/2019 Active Dexcom G6 Locomotive Operator Helper Device Use as directed. To test blood sugars 4 times a day Dx E11.9 1 Each 0 09/14/2020 Active Dexcom G6 Transmitter Use as directed. To test blood sugars 4 times a day. Change every 90 days. Dx E11.9 1 Each 3 09/14/2020 Active OneTouch Verio In Vitro Strip (Glucose Blood) TESTING once daily 100 Strip 3 10/29/2020 Active OneTouch Delica Plus [id number] TESTING once daily 100 Each 3 10/29/2020 [...] of less than 7.0% ([facility]) USE TO INJECT INSULIN FOUR TIMES [...] pain 01/24/2012 01/17/2017 Genetic Sleep Disorder Research Other*[id number] 05/13/2011 04/07/2016 Obstructive sleep apnea 01/18/2011 12/27/19 [...] Sign Reading Time Taken Comments Blood Pressure 128/68 05/10/2022 9:03 AM EDT Pulse 64 05/10/2022 9:03 AM EDT Temperature 37.7 C (99.8 F) 05/10/2022 9:03 AM ED T Respiratory Rate 18 05/10/2022 9:03 AM EDT Oxygen Saturation 96% 05/10/2022 9:03 AM EDT Inhaled Oxygen Concentration - - [...] Progress Notes * July Poe RN - 05/10/2022 7:50 AM EDT Images from the original note were not included. [facility] Mobile Sales Assistant BALDOMERO #1 Visit Date: 05/10/2022 Time: 7:50 AM Name: Shaina Bustos : 1955 Current Concerns: Pt seen for BALDOMERO #1 Admitted to [facility] 05/01-05/04/22 for acute hepatic encephalopathy, UTI, and asymptomatic covid infection Ammonia level was 125 upon admission and was down to 67 when discharged Pt received lactulose and IV abx for the UTI and mental status came back to baseline Pt to continue Lactulose to have 1-2 bowel movements per day Pt discharged home on oral abx of cefuroxime for 3 days - has finished this already Blood sugar running 90 - 124 yesterday and today Cg reports she was taking Lactulose prior to hospitalization and they even increased it when pt didn't go in 24 hours but it did not help and she still sometimes missed a day of having a bm Right buttock stage 1 - 3cm x 0.5cm - Cg reports much improvement since last week. Applying silver sulfadiazine cream daily and as needed and has been helping Physical Exam: BP 128/68 | Pulse 64 | Temp 37.7 C (99.8 F) | Resp 18 | SpO2 96% [...] Negative. Eyes: Negative. Respiratory: Positive for cough (with occasional thick dark mucus). Cardiovascular: Positive for leg swelling. Endocrine: Negative. Genitourinary: Negative. Musculoskeletal: Positive for arthralgias and gait problem (non-ambulatory ). Skin: Positive for wound. Neurological: Positive for weakness. Medication Reconciliation: (See medication list) Does patient take medications as ordered: Yes Patient Well Being: PHQ2/9: No questionnaires available. No change in living situation No falls - is svetlana lift for transfers [facility] Completed this Visit: Yes. [facility]-10: Reason Completed: Status post ED visit/hospital admission [facility]-10 Interventions: Fall education provided, reviewed/provided Fall brochure Advanced Care Planning: Living Will. and Healthcare POA. Patient's Goals of Care: 1. Remain at home 2. Stay out of the hospital Reinforcement/Education: DIABETES: -Blood sugar testing schedule: Twice [...] day Svetlana lift for transfers F/U with gyne F/U with heme/onc Be sure to take lactulose to have 1-2 bowel movements per day Home Interventions Provided: Home Intervention: Other; Evaluation Reinforced current Plan of Care, including self-management and medication regimen Patient's 'Red Flags': 1. Increased SOB 2. Change in mental status 3. 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 Provider is in agreement with Plan of Care: Yes Scheduled to follow up with patient per BALDOMERO schedule. July Poe RN 05/10/2022 7:50 AM documented in this encounter Plan of Treatment Upcoming Encounters Date Type Specialty Care Team Description 05/11/2022 Imaging Radiology 05/11/2022 Hem/Onc Treatment Hematology Oncology [place], Chair 9 Hem Onc [address] [place] [address] 05/13/2022 Office Visit Family Medicine Vanita Dunn MD [address] [place] [address] 05/20/2022 Telemedicine [facility] Joselin Dawson CRNP [address] [place] [address] Kaylee Barakat, Community Health Excel Vba Developer [address] [place] [address] 05/24/2022 Home Visit Family Medicine Kaylee Barakat, [facility] Excel Vba Developer [address] [place] [address] 05/30/2022 Office Visit Gynecology Obstetrics Susan Jara MD [address] [place] [id number] 06/01/2022 Office Visit Pharmacy Pharmacist1, [facility] [address] [place] [address] 06/02/2022 Home Visit [facility] July Poe, RN [address] [place] [address] 06/24/2022 Office Visit Sleep Disorders Love Francisco DO [address] [facility] [place] [address] 07/04/2022 Office Visit Gynecology Obstetrics Concetta Khan MD [address] [place] [address] 08/23/2022 Office Visit Endocrinology Alberta Duque PA-C [address] [place] [address] 08/30/2022 Office Visit Gastroenterology Lyssa Stout CRNP 132 [place] [address] 09/14/2022 PulmDiagnostic Pulmonary Function West, Pft [address] [facility] [place] [address] 09/28/2022 Office Visit Pulmonary Reynaldo Marquez MD [address] [place] [address] 10/26/2022 Office Visit Hematology Oncology Tono Sanchez MD 200 [facility] [place] [address] Scheduled Procedures Name Priority Associated Diagnoses Date/Ti [...] of this encounter Implants Implanted Type Area Reclamation Worker Device Identifier Shelf Expiration Date Model / Serial / Lot Microtech Sure Clip Implanted:Qty: 2 on 06/03/2020 by Janis Hatch DO at OR [facility] Clip N/A: Colon 04/21/2022 [facility]-F-26-2 35-C-R / / [id number] documented as of this encounter Additional Health Concerns Infection Onset Date Last Indicated Resolved Time COVID-19 (confirmed) 04/29/2022 04/29/2022 documented as of this encounter Advance Directives Documents on File Type Date Recorded Patient Director Of Development And Marketing 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 AND HEALTH CARE POA Power of Business Management Manager 04/29/2021 12:00 AM TOM R OF LEAVE MANAGER HEALTH CARE POA Advanced Directive 04/01/2021 [...] Syed Bustos Spouse Emergency Contact Care Teams Teacher Dancing Relationship Specialty Start Date End Date Vanita Dunn MD [address] [place] [address] PCP - General Family Medicine 03/16/21 documented as of this encounter"
--- OUTSIDE RECORDS SUMMARY | 2023-05-10 18:23 | External Medical Summary | Summary of Care ---
Author Name Unknown Organization [facility] Address [place] [address] Care Team Providers Care Wire Wheeler Name Role Phone Vanita Dunn MD Primary Care Provid er Reason for Visit * Reason Onset Date Comments Order Request 05/10/2022 Encounter Details Date Type Department Care Team Description 05/10/2022 Telephone [facility] [address] [place] [address] Vanita Dunn MD [address] [place] [address] Order Request 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 documented as of this encounter (statuses as of 05/11/2022) Medications Medication Sig Dispensed Refills Start Date End Date Status nystatin (NYSTOP) 434132 UNIT/GM powder Apply topically to affected area 3 times a day. 60 g 1 10/16/2019 Active Dexcom G6 Machine Bander And Cellophaner Helper Device Use as directed. To test blood sugars 4 times a day Dx E11.9 1 Each 0 09/14/2020 Active Dexcom G6 Transmitter Use as directed. To test blood sugars 4 times a day. Change every 90 days. Dx E11.9 1 Each 3 09/14/2020 Active OneTouch Verio In Vitro Strip (Glucose Blood) TESTING once daily 100 Strip 3 10/29/2020 Active OneTouch Delica Plus [id number] TESTING once daily 100 Each 3 10/29/2020 [...] than 7.0% ([facility]) USE TO INJECT INSULIN FOUR TIMES [...] as of this encounter (statuses as of 05/11/2022) Active Problems Problem Noted Date Hypertensive heart [...] as of this encounter (statuses as of 05/11/2022) Resolved Problems Problem Noted Date Resolved Date [...] pain 01/24/2012 01/17/2017 Genetic Sleep Disorder Research Other*[id number] 05/13/2011 04/07/2016 Obstructive sleep apnea 01/18/2011 12/27/19 [...] as of this encounter (statuses as of 05/11/2022) Immunizations Name Administration Dates Next Due COVID-19 [...] the correct sling. Spoke with Bob at [employer] he is aware of what is needed. Bob states hewill call if there is any questions. * Telephone Encounter - THAD [place] - 05/10/2022 2:05 PM EDT An order was requested for this patient. Name of Requesting Provider: Dulce from [facility] Order Requested: Sling for candace lift that has straps between legs Diagnosis/Reason for Request: Cerebral palsy Does the order need to be faxed somewhere? If so, where?: Yes - [facility] Fax Number, if applicable: [phone] Call Back Number: [phone] If the caller is not a current patient, please advise the patient to call their current PCP to havethe order's prior to being seen in our office. The patient was informed that our providers would not order anything (medication, labs, etc.) prior to being seen. documented in this encounter Plan of Treatment Upcoming Encounters Date Type Specialty Care Team Description 05/11/2022 Hem/Onc Treatment Hematology Oncology [place], Chair 9 Hem Onc [address] [place] [address] 05/13/2022 Office Visit Family Medicine Vanita Dunn MD [address] [place] [address] 05/24/2022 Home Visit Family Medicine Kaylee Barakat, Community Health Contract Post Office Clerk [address] [place] [address] 05/30/2022 Office Visit Gynecology Obstetrics Susan Jara MD [address] [place], [place] [address] [address] 05/31/2022 Telemedicine [facility] Aleyda Campos PA-C 132 [facility] [place] [address] Kaylee Barakat, Community Health Contract Post Office Clerk [address] [place] [address] 06/01/2022 Office Visit Pharmacy Pharmacist1, [facility] [address] [place] [address] 06/02/2022 Home Visit [facility] July Poe RN [address] [place] [address] 06/24/2022 Office Visit Sleep Disorders Love Francisco DO 132 [place] [address] 07/04/2022 Office Visit Gynecology Obstetrics Concetta Khan MD [address] [place], [place] [phone] 08/23/2022 Office Visit Endocrinology Alberta Duque PA-C [address] [place] [address] 08/30/2022 Office Visit Gastroenterology Lyssa Stout CRNP [address] [place] [address] 09/14/2022 PulmDiagnostic Pulmonary Function West, Pft [address] [place] [address] 09/28/2022 Office Visit Pulmonary Reynaldo Marquez MD [address] [place] [address] 10/26/2022 Office Visit Hematology Oncology Tono Sanchez MD 200 [place] [address] Scheduled Procedures Name Priority Associated Diagnoses Date/Ti [...] of this encounter Implants Implanted Type Area Clam Grower Device Identifier Shelf Expiration Date Model / Serial / Lot Microtech Sure Clip Implanted:Qty: 2 on 06/03/2020 by Janis Hatch DO at OR [facility] Clip N/A: Colon 04/21/2022 [facility]-F-26-2 35-C-R / / [id number] documented as of this encounter Additional Health Concerns Infection Onset Date Last Indicated Resolved Time COVID-19 (confirmed) 04/29/2022 04/29/2022 documented as of this encounter Advance Directives Documents on File Type Date Recorded Patient [place] Former Machine Operator Expl 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 WILL AND HEALTH CARE POA Power of Shearing Machine Feeder 04/29/2021 12:00 AM TOM R OF [facility] POA Advanced Directive 04/01/2021 1:14 [...] Syed Bustos Spouse Emergency Contact Care Teams Wire Wheeler Relationship Specialty Start Date End Date Vanita Dunn MD [address] [place] [address] PCP - General Family Medicine 03/16/21 documented as of this encounter
--- OUTSIDE RECORDS SUMMARY | 2023-05-10 18:24 | External Medical Summary | Summary of Care ---
Author Name Unknown Organization [facility] Address [place] [address] Care Team Providers Care Electric Truck Operator Name Role Phone Vanita Dunn MD Primary Care Provid er Reason for Visit * Reason Onset Date Comments [facility]: Maintenance 05/09/2022 Encounter Details Date Type Department Care Team Description 05/09/2022 Scheduled Telephone [facility], [facility] [place] [address] [facility] [place] [address] Coordinator, [facility] [address] [facility] [place] [address] 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 documented as of this encounter (statuses as of 05/09/2022) Medications Medication Sig Dispensed Refills Start Date End Date Status nystatin (NYSTOP) 419744 UNIT/GM powder Apply topically to affected area 3 times a day. 60 g 1 10/16/2019 Active Dexcom G6 Iron Miner Blasting Device Use as directed. To test blood sugars 4 times a day Dx E11.9 1 Each 0 09/14/2020 Active Dexcom G6 Transmitter Use as directed. To test blood sugars 4 times a day. Change every 90 days. Dx E11.9 1 Each 3 09/14/2020 Active OneTouch Verio In Vitro Strip (Glucose Blood) TESTING once daily 100 Strip 3 10/29/2020 Active OneTouch Delica Plus [id number] TESTING once daily 100 Each 3 10/29/2020 [...] as of this encounter (statuses as of 05/09/2022) Active Problems Problem Noted Date Hypertensive heart [...] as of this encounter (statuses as of 05/09/2022) Resolved Problems Problem Noted Date Resolved Date [...] pain 01/24/2012 01/17/2017 Genetic Sleep Disorder Research Other*[id number] 05/13/2011 04/07/2016 Obstructive sleep apnea 01/18/2011 12/27/19 [...] as of this encounter (statuses as of 05/09/2022) Immunizations Name Administration Dates Next Due COVID-19 [...] Telephone Encounter - Dorothy Walker LPN - 05/09/2022 1:02 PM EDT COVID Follow up Type: [facility] Date of onset of COVID symptoms: 04/29 Date of positive COVID test: 04/29 COVID Targeted Medications: N/A Current concerns: Spoke with patient Feels that she is mostly back to baseline Still with a cough, which is occasionally productive-dark yellow Denies any fever Denies any SOB Eating and drinking normally Bowels moving normally Monitoring Device: Device Type: Home Kit Device trigger/concerns with remote patient monitoring readings within past 24 hours: N/A Utilization within the past 24 hours: None Problems/Symptoms: Patients current temperature n/a Highest recorded temperature within the last 24 hours n/a Use of antipyretics? No Oxygen Requirements: Room Air Increased oxygen needs in past 24 hours: N/A Oxygen saturation per oximeter: n/a Pulse rate per oximeter: n/a Symptoms: Cough Cough description: Productive Color of Sputum: Yellow Consistency of Sputum: Thicker than usual (beyond baseline) Anticoagulation: Has the patient been started on anticoagulation due to COVID-19? No Treatment/Plan: Continue to monitor symptoms Confirmed RNCM visit tomorrow Anticoagulation: N/A Test Results: Positive Your test [...] they have cold/flu symptoms, they should call [facility] COVID-19 hotline at [phone] and get tested for the virus. Treat your symptoms with ucyt-kem-vtojmvu medications, such as Tylenol. If you develop new symptoms or your symptoms are worsening, call your Generating Plant Superintendent/[facility] Intake Team/PCP for advice. If you begin to experience a medical emergency, call 911 and advise them that you have tested positive for COVID-19 If you are a [employer] staff member or employee, when you receive your result, please call [employer] between 7 a.m. and 4 p.m. at [phone]. Notify them of your test results and for instructions on returning to work after your quarantine period. Your primary care provider will be notified of your results. Contact them for follow-up care. Has patient recovered (per current guidelines defining recovery)? Yes Is the patient an employee of [employer]? No. Follow Up: Patient encouraged to call with all urgent but not emergent issues. Scheduled to follow up with patient in 1 day via . documented in this encounter Plan of Treatment Upcoming Encounters Date Type Specialty Care Team Description 05/10/2022 Home Visit [facility] July Poe RN [address] [place] [address] 05/11/2022 Imaging Radiology 05/11/2022 Hem/Onc Treatment Hematology Oncology [place], Chair [address] [place] [address] 05/13/2022 Office Visit Family Medicine Vanita Dunn MD [address] [place], [place] [phone] 05/20/2022 Telemedicine [facility] Joselin Dawson CRNP [address] [place] [address] Kaylee Barakat, Community Health Sailboat Captain [address] [place] [address] 05/24/2022 Home Visit Family Medicine Yuval Kaylee Belen, [facility] Sailboat Captain [address] [place] [address] 05/30/2022 Office Visit Gynecology Obstetrics Susan Jara MD [address] [place] [address] 06/01/2022 Office Visit Pharmacy Pharmacist1, [facility] Sp [address] [place] [address] 06/24/2022 Office Visit Sleep Disorders Love Francisco DO 132 [place] [address] 07/04/2022 Office Visit Gynecology Obstetrics Concetta Khan MD [address] [place] [address] 08/23/2022 Office Visit Endocrinology Alberta Duque PA-C [address] [place] [address] 08/30/2022 Office Visit Gastroenterology Lyssa Stout CRNP [address] [place] [address] 09/14/2022 PulmDiagnostic Pulmonary Function West, Pft 132 [facility] [place] [address] 09/28/2022 Office Visit Pulmonary Reynaldo Marquez MD [address] [place] [id number] 10/26/2022 Office Visit Hematology Oncology Tono Sanchez MD 200 [facility] [place] [address] Scheduled Procedures Name Priority Associated Diagnoses Date/Ti [...] of this encounter Implants Implanted Type Area Studio Coordinator Device Identifier Shelf Expiration Date Model / Serial / Lot Microtech Sure Clip Implanted:Qty: 2 on 06/03/2020 by Janis Hatch DO at OR [facility] Clip N/A: Colon 04/21/2022 [facility]-F-26-2 35-C-R / / [id number] documented as of this encounter Additional Health Concerns Infection Onset Date Last Indicated Resolved Time COVID-19 (confirmed) 04/29/2022 04/29/2022 documented as of this encounter Advance Directives Documents on File Type Date Recorded Patient Offset Proof Press Operator Expl 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 WILL AND HEALTH CARE POA Power of Communication Manager 04/29/2021 12:00 AM TOM R OF PRIVATE ADVISOR HEALTH CARE POA Advanced Directive 04/01/2021 1:14 [...] File Name Relationship Healthcare Agent [facility] p Communication Syed Bustos Spouse Emergency Contact Care Teams Electric Truck Operator Relationship Specialty Start Date End Date Vanita Dunn MD [address] [place], [place] [phone] PCP - General Family Medicine 03/16/21 documented as of this encounter
--- OUTSIDE RECORDS SUMMARY | 2023-05-10 18:24 | External Medical Summary | Summary of Care ---
Author Name Unknown Organization [facility] Address [place] [address] Care Team Providers Care Vp Project Name Role Phone Kojo Dunn MD Primary Care Provid er Reason for Visit * Reason Comments eRx-Medication Refill Encounter Details Date Type Department Care Team Description 2022 [address] [place] [address] Kojo Dunn MD [address] [place] [address] NAFLD (nonalcoholic fatty liver disease); Other cirrhosis of liver (HCC) 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 documented as of this encounter (statuses as of 05/09/2022) Medications Medication Sig Dispensed Refills Start Date End Date Status nystatin (NYSTOP) 257325 UNIT/GM powder Apply topically to affected area 3 times a day. 60 g 1 0 Active Dexcom G6 Tin Recovery Worker Device Use as directed. To test blood sugars 4 times a day Dx E11.9 1 Each 0 1 Active Dexcom G6 Transmitter Use as directed. To test blood sugars 4 times a day. Change every 90 days. Dx E11.9 1 Each 3 1 Active OneTouch Verio In Vitro Strip (Glucose Blood) TESTING once daily 100 Strip 3 1 Active OneTouch Delica Plus [id number] TESTING once daily 100 Each 3 1 [...] a meal 90 Tab 3 1 Active traZODone HCl 50 MG Oral Tablet (Desyrel)Indication s:Sleep disturbances TAKE 1 TABLET ONCE DAILY AT BEDTIME 90 Tab 3 1 Active Fluticasone Propionate [...] goal of less than 7.0% ([facility]) USE TO INJECT INSULIN FOUR TIMES [...] TWICE DAILY 360 Tablet 1 2 Active Pantoprazole Sodium 20 MG Oral Tablet Delayed Release (Protonix)Indicatio ns:NAFLD (nonalcoholic fatty liver disease),Other cirrhosis of liver (HCC) TAKE 2 TABLETS BY MOUTH TWICE DAILY 360 Tab 3 1 05/09/20 22 Discontinued Hospital, Clinic, or Other Facility [...] pain 01/24/2012 01/17/2017 Genetic Sleep Disorder Research Other*[id number] 05/13/2011 04/07/2016 Obstructive sleep apnea 01/18/2011 12/27/19 [...] Miscellaneous Notes * Telephone Encounter - [facility] - 05/09/2022 11:34 AM EDT Signed Prescriptions: Disp Refills Pantoprazole Sodium 20 MG Oral Tablet Kandi*360 Ta*1 Sig: TAKE 2 TABLETS BY MOUTH TWICE DAILYAuthorizing Provider: KOJO DUNN User: JOSH SAVAGE Electronically signed by [facility] at 05/09/2022 11:34 AM EDT documented in this encounter Plan of Treatment Upcoming Encounters Date Type Specialty Care Team Description 05/10/2022 Home Visit [facility] July Poe RN [address] [place] [address] 05/11/2022 Imaging Radiology 05/11/2022 Hem/Onc Treatment Hematology Oncology [address], Chair [address] [place] [address] 05/13/2022 Office Visit Family Kojo Carpio MD [address] [place] [address] 05/20/2022 Telemedicine [facility] Joselin Dawson CRNP 132 [facility] [place] [address] Kaylee Barakat, Count Includes [facility] Health Verification Rep [address] [place] [address] 05/24/2022 Home Visit Family Medicine Kaylee Barakat, Count Includes [facility] Health Verification Rep [address] [place] [address] 05/30/2022 Office Visit Gynecology Obstetrics Susan Jara MD [address] [place] [address] 06/01/2022 Office Visit Pharmacy Pharmacist1, [facility] [address] [facility] [place] [address] 06/24/2022 Office Visit Sleep Disorders Love Francisco DO 132 [facility] [place] [address] 07/04/2022 Office Visit Gynecology Obstetrics Concetta Khan MD [address] [place], [place] [phone] 08/23/2022 Office Visit Endocrinology Alberta Duque PA-C [address] [place] [address] 08/30/2022 Office Visit Gastroenterology Lyssa Stout CRNP 132 [facility] [place] [address] 09/14/2022 PulmDiagnostic Pulmonary Function West, Pft 132 [facility] [place] [address] 09/28/2022 Office Visit Pulmonary [facility] [address] [facility] [address] 10/26/2022 Office Visit Hematology Oncology Tono Sanchez MD 200 [place] [address] Scheduled Procedures Name Priority Associated Diagnoses Date/Ti [...] of this encounter Implants Implanted Type Area Space Sciences Director Device Identifier Shelf Expiration Date Model / Serial / Lot Microtech Sure Clip Implanted:Qty: 2 on 06/03/2020 by Janis Hatch DO at OR [facility] Clip N/A: Colon 04/21/2022 [facility]-F-26-2 35-C-R / / [id number] documented as of this encounter Visit Diagnoses Diagnosis NAFLD (nonalcoholic fatty liver disease) Other chronic nonalcoholic liver disease Other cirrhosis of liver (HCC) documented in this encounter Additional Health Concerns Infection Onset Date Last Indicated Resolved Time COVID-19 (confirmed) 04/29/2022 04/29/2022 documented as of this encounter Advance Directives Documents on File Type Date Recorded Patient Special Procedures Technologist 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 WILL AND HEALTH CARE POA Power of Cutting Tool Sharpener 04/29/2021 12:00 AM TOM R OF METAL BONDING PRESS OPERATOR HEALTH CARE POA Advanced Directive [...] Syed Bustos Spouse Emergency Contact Care Teams Vp Project Relationship Specialty Start Date End Date Kojo Dunn MD [address] [place] [address] PCP - General Family Medicine 03/16/21 documented as of this encounter
--- OUTSIDE RECORDS SUMMARY | 2023-05-10 18:25 | External Medical Summary | Summary of Care ---
Author Name Unknown Organization [facility] Address [place] [address] Care Team Providers Care Liberal Arts Teacher Name Role Phone Vanita Dunn MD Primary Care Provid er Reason for Visit * Reason Onset Date Comments [facility]: Maintenance 05/07/2022 Encounter Details Date Type Department Care Team Description 05/07/2022 Scheduled Telephone [facility], [facility] [address] [facility] [place] [address] [facility], Nurse [facility] [address] [facility] [place] [address] 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 documented as of this encounter (statuses as of 05/07/2022) Medications Medication Sig Dispensed Refills Start Date End Date Status nystatin (NYSTOP) 093367 UNIT/GM powder Apply topically to affected area 3 times a day. 60 g 1 10/16/2019 Active Dexcom G6 Permastone Installer Device Use as directed. To test blood sugars 4 times a day Dx E11.9 1 Each 0 09/14/2020 Active Dexcom G6 Transmitter Use as directed. To test blood sugars 4 times a day. Change every 90 days. Dx E11.9 1 Each 3 09/14/2020 Active OneTouch Verio In Vitro Strip (Glucose Blood) TESTING once daily 100 Strip 3 10/29/2020 Active OneTouch Delica Plus [id number] TESTING once daily 100 Each 3 10/29/2020 [...] AT BEDTIME 90 Tab 3 06/11/2021 Active Pantoprazole Sodium 20 MG Oral Tablet Delayed Release (Protonix)Indications :NAFLD (nonalcoholic fatty liver disease),Other cirrhosis of liver (HCC) TAKE 2 TABLETS BY MOUTH TWICE DAILY 360 Tab 3 06/11/2021 Active Fluticasone Propionate 50 [...] the morning. 180 Tablet 3 05/06/2022 Active Hospital, Clinic, or Other Facility Administered [...] as of this encounter (statuses as of 05/07/2022) Active Problems Problem Noted Date Hypertensive heart [...] as of this encounter (statuses as of 05/07/2022) Resolved Problems Problem Noted Date Resolved Date [...] pain 01/24/2012 01/17/2017 Genetic Sleep Disorder Research Other*[id number] 05/13/2011 04/07/2016 Obstructive sleep apnea 01/18/2011 12/27/19 [...] as of this encounter (statuses as of 05/07/2022) Immunizations Name Administration Dates Next Due COVID-19 [...] Telephone Encounter - Polly Hernandez RN - 05/07/2022 11:27 AM EDT tpc to pt Recent dc from [facility]-states she was discharged 'a couple days ago' Dx covid + Feeling a lot better than she did Denies any covid symptoms today However reports a slight cough, unable to completely bring up. Denies any increased sob, cp or fever. Has not checked her vs this am but they have been normal. Denies any other needs or concerns at this time. Aware to call [facility] with any urgent but non-emergent needs. documented in this encounter Plan of Treatment Upcoming Encounters Date Type Specialty Care Team Description 2022 Scheduled Telephone [facility], Nurse [facility] [address] [facility] [place] [address] 05/09/2022 Scheduled Telephone [facility], [facility] [address] [facility] [place] [address] 05/10/2022 Home Visit [facility] July Poe RN 132 [facility] [place] [address] 05/11/2022 Imaging Radiology 05/11/2022 Hem/Onc Treatment Hematology Oncology [address], [address] [place] [address] 05/13/2022 Office Visit Family Medicine Vanita Dunn MD [address] [place] [address] 05/20/2022 [facility]medicine [facility] Joselin Dawson CRNP [address] [facility] [address] Kaylee Barakat, Community Health Pmo Consultant [address] [place] [address] 05/24/2022 Home Visit Family Medicine Kaylee Barakat, Community Health Pmo Consultant [address] [place] [address] 05/30/2022 Office Visit Gynecology Obstetrics Susan Jara MD [address] [place] [address] 06/01/2022 Office Visit Pharmacy Pharmacist1, [facility] Sp 200 [place] [address] 06/24/2022 Office Visit Sleep Disorders Love Francisco DO [address] [place] [address] 07/04/2022 Office Visit Gynecology Obstetrics Concetta Khan MD [address] [place] [address] 08/23/2022 Office Visit Endocrinology Alberta Duque PA-C [address] [place], [place] [phone] 08/30/2022 Office Visit Gastroenterology Lyssa Stout CRNP [address] [place] [address] 09/14/2022 PulmDiagnostic Pulmonary Function West, Pft 132 [facility] [place] [address] 09/28/2022 Office Visit Pulmonary Reynaldo Marquez MD [address] [place] [address] 10/26/2022 Office Visit Hematology Oncology Tono Sanchez MD 200 [place] [address] Scheduled Procedures Name Priority Associated Diagnoses Date/Ti [...] of this encounter Implants Implanted Type Area Home Appliance Tech Device Identifier Shelf Expiration Date Model / Serial / Lot Microtech Sure Clip Implanted:Qty: 2 on 06/03/2020 by Janis Hatch DO at OR [facility] Clip N/A: Colon 04/21/2022 [facility]-F-26-2 35-C-R / / [id number] documented as of this encounter Additional Health Concerns Infection Onset Date Last Indicated Resolved Time COVID-19 (confirmed) 04/29/2022 04/29/2022 documented as of this encounter Advance Directives Documents on File Type Date Recorded Patient Senior Net Programmer 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 WILL AND HEALTH CARE POA Power of Television Announcer 04/29/2021 12:00 AM TOM R OF CLOTH BOOKER HEALTH CARE POA Advanced Directive 04/01/2021 1:14 [...] Syed Bustos Spouse Emergency Contact Care Teams Liberal Arts Teacher Relationship Specialty Start Date End Date Vanita Dunn MD [address] [place] [address] PCP - General Family Medicine 03/16/21 documented as of this encounter
--- OUTSIDE RECORDS SUMMARY | 2023-05-10 18:25 | External Medical Summary | Summary of Care ---
Author Name Unknown Organization [place] [address] Care Team Providers Care Gaming Manager Name Role Phone Vanita Dunn MD Primary Care Provid er Reason for Visit * Reason Comments eRx-Medication Refill Encounter Details Date Type Department Care Team Description 05/04/2022 Refill Cardiology, [facility] 132 [facility] [place] [id number] Drew Retana MD [address] [place] [address] 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 documented as of this encounter (statuses as of 05/06/2022) Medications Medication Sig Dispensed Refills Start Date End Date Status nystatin (NYSTOP) 402643 UNIT/GM powder Apply topically to affected area 3 times a day. 60 g 1 0 Active Dexcom G6 Shoe Repairer Device Use as directed. To test blood sugars 4 times a day Dx E11.9 1 Each 0 1 Active Dexcom G6 Transmitter Use as directed. To test blood sugars 4 times a day. Change every 90 days. Dx E11.9 1 Each 3 1 Active OneTouch Verio In Vitro Strip (Glucose Blood) TESTING once daily 100 Strip 3 1 Active OneTouch Delica Plus [id number] TESTING once daily 100 Each 3 1 [...] AT BEDTIME 90 Tab 3 1 Active Pantoprazole Sodium 20 MG Oral Tablet Delayed Release (Protonix)Indicatio ns:NAFLD (nonalcoholic fatty liver disease),Other cirrhosis of liver (HCC) TAKE 2 TABLETS BY MOUTH TWICE DAILY 360 Tab 3 1 Active Fluticasone Propionate 50 [...] the morning. 180 Tablet 3 2 Active Spironolactone 25 MG Oral Tablet (Aldactone) TAKE 2 TABLETS BY MOUTH ONCE DAILY 60 Tablet 3 05/06/05/06/20 22 Discontinued Hospital, Clinic, or Other Facility [...] as of this encounter (statuses as of 05/06/2022) Active Problems Problem Noted Date Hypertensive heart [...] as of this encounter (statuses as of 05/06/2022) Resolved Problems Problem Noted Date Resolved Date [...] pain 01/24/2012 01/17/2017 Genetic Sleep Disorder Research Other*[id number] 05/13/2011 04/07/2016 Obstructive sleep apnea 01/18/2011 12/27/19 [...] as of this encounter (statuses as of 05/06/2022) Immunizations Name Administration Dates Next Due COVID-19 [...] encounter Miscellaneous Notes * Telephone Encounter - Drew Retana MD - 05/06/2022 12:13 PM EDT Signed Prescriptions: Disp Refills Spironolactone 25 MG Oral Tablet (Aldacton*180 Ta*3 Sig: Take by mouth 2 Tablets in the morning. Authorizing Provider: DREW RETANA * Telephone Encounter - Alirio Corcoran LPN - 05/06/2022 11:43 AM EDT Pending Prescriptions: Disp Refills Spironolactone 25 MG Oral Tablet (Aldacto*180 Ta*3 Sig: Take by mouth 2 Tablets in the morning. * Telephone Encounter - Alirio Corcoran LPN - 05/06/2022 11:41 AM EDT Did you pend patient's preferred pharmacy and medication before forwarding?yes Pharmacy: [facility] # [id number] Pending Prescriptions: Disp Refills Spironolactone 25 MG Oral Tablet (Aldacto*180 Ta*3 Sig: Take by mouth 2 Tablets in the morning. Last Visit: 11/04/2021 (in office), Visit date not found (telemedicine) Next Visit: 05/05/2022 If no future appointments scheduled, and last appointment is greater than a year ago, please schedule patient for a follow-up appointment Last date the medication was ordered: 01/14/22 Is this request for a controlled substance?No Urine Drug Screen:No results found. However, due to the size of the patient record, not all encounters were searched. Please check Results Review for a complete set of results. Patient Phone Numbers Labs: Lab Results Component Value Date/Time CREAT 0.7 12/20/2021 02:48 PM CREAT 0.72 12/18/2021 12:00 AM CREAT 0.6 09/24/2020 05:16 PM POTASSIUM 4.3 12/20/2021 02:48 PM POTASSIUM 4.3 12/18/2021 12:00 AM POTASSIUM 4.0 09/24/2020 05:16 PM TSH 0.02 (L) 06/10/2021 02:45 PM TSH 0.69 07/14/2020 04:24 PM LDLCALC 46 09/14/2021 03:22 PM LDLCALC 43 04/05/2019 06:40 AM LDLDIRECT 46 02/21/2020 11:43 AM ALT 30 04/28/2022 02:21 PM ALT 23 08/21/2020 04:35 PM HGBA1C 6.9 (H) 01/24/2022 08:34 AM HGBA1C 9.9 (H) 07/06/2020 05:24 AM documented in this encounter Plan of Treatment Upcoming Encounters Date Type Specialty Care Team Description 05/07/2022 Scheduled Telephone [facility], Nurse [address] [place] [address] 2022 Scheduled Telephone [facility], Nurse [address] [place] [address] 05/09/2022 Scheduled Telephone [facility] Video Library Assistant, [facility] 132 [facility] [place] [address] 05/10/2022 Home Visit [facility] July Poe RN 132 [facility] [place] [address] 05/11/2022 Imaging Radiology 05/11/2022 Hem/Onc Treatment Hematology Oncology [place], Chair [address] Hem On[address] Sc[address] [facility] [address] 05/13/2022 Office Visit Family Medicine Vanita Dunn MD [address] [place] [address] 05/20/2022 Telemedicine [facility] Joselin Dawson CRNP [address] [place] [address] Kaylee Barakat, [facility] [address] [place] [address] 05/24/2022 Home Visit Family Medicine Kaylee Barakat, [facility] [place] [address] [place] [address] 05/30/2022 Office Visit Gynecology Obstetrics Susan Jara MD [address] [place] [address] 06/01/2022 Office Visit Pharmacy Pharmacist1, [facility] [address] [place] [address] 06/24/2022 Office Visit Sleep Disorders Love Francisco DO 132 [place] [address] 07/04/2022 Office Visit Gynecology Obstetrics Concetta Khan MD [address] [place] [address] 08/23/2022 Office Visit Endocrinology Alberta Duque PA-C [address] [place] [address] 08/30/2022 Office Visit Gastroenterology Lyssa Stout CRNP 132 [place] [address] 09/14/2022 PulmDiagnostic Pulmonary Function West, Pft [address] [place] [address] 09/28/2022 Office Visit Pulmonary Reynaldo Marquez MD [address] [place], [place] [phone] 10/26/2022 Office Visit Hematology Oncology Tono Sanchez MD 200 [place] [address] Scheduled Procedures Name Priority Associated Diagnoses Date/Ti [...] of this encounter Implants Implanted Type Area Commercial Real Estate Lender Device Identifier Shelf Expiration Date Model / Serial / Lot Microtech Sure Clip Implanted:Qty: 2 on 06/03/2020 by Janis Hatch DO at OR [facility] Clip N/A: Colon 04/21/2022 [facility]-F-26-2 35-C-R / / [id number] documented as of this encounter Additional Health Concerns Infection Onset Date Last Indicated Resolved Time COVID-19 (confirmed) 04/29/2022 04/29/2022 documented as of this encounter Advance Directives Documents on File Type Date Recorded Patient Spare Fixer 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 WILL AND HEALTH CARE POA Power of Adjuster And Inspector 04/29/2021 12:[address] [facility] CARE POA Advanced Directive 04/01/2021 1:14 [...] Syed Bustos Spouse Emergency Contact Care Teams Gaming Manager Relationship Specialty Start Date End Date Vanita Dunn MD [address] [place] [address] PCP - General Family Medicine 03/16/21 documented as of this encounter
--- OUTSIDE RECORDS SUMMARY | 2023-05-10 18:25 | External Medical Summary | Summary of Care ---
Author Name Unknown Organization [facility] Address [place] [address] Care Team Providers Care Gill Net Stringer Name Role Phone Vanita Dunn MD Primary Care Provid er Reason for Visit * Reason Onset Date Comments [facility]: Maintenance 2022 D C from [facility] Encounter Details Date Type Department Care Team Description 2022 Scheduled Telephone [facility], [facility] 132 [facility] [place] [address] [facility], Nurse [facility] 132 [facility] [place] [address] 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 documented as of this encounter (statuses as of 2022) Medications Medication Sig Dispensed Refills Start Date End Date Status nystatin (NYSTOP) 977544 UNIT/GM powder Apply topically to affected area 3 times a day. 60 g 1 10/16/2019 Active Dexcom G6 Technical Documentation Specialist Device Use as directed. To test blood sugars 4 times a day Dx E11.9 1 Each 0 09/14/2020 Active Dexcom G6 Transmitter Use as directed. To test blood sugars 4 times a day. Change every 90 days. Dx E11.9 1 Each 3 09/14/2020 Active OneTouch Verio In Vitro Strip (Glucose Blood) TESTING once daily 100 Strip 3 10/29/2020 Active OneTouch Delica Plus [id number] TESTING once daily 100 Each 3 10/29/2020 [...] as of this encounter (statuses as of 2022) Active Problems Problem Noted Date Hypertensive heart [...] as of this encounter (statuses as of 2022) Resolved Problems Problem Noted Date Resolved Date [...] pain 01/24/2012 01/17/2017 Genetic Sleep Disorder Research Other*[id number] 05/13/2011 04/07/2016 Obstructive sleep apnea 01/18/2011 12/27/19 [...] as of this encounter (statuses as of 2022) Immunizations Name Administration Dates Next Due COVID-19 [...] Telephone Encounter - Tamara Arias RN - 2022 10:00 AM EDT TC made to Shaina: 05/03 admitted [facility], states she was discharged 'a couple days ago' Dx covid + Feeling "totally fine, so does that mean I don't have COVID anymore?" Explained quarantine currently 10 days from beginning of symptoms so even if feeling well, could spread COVID However reports a slight cough, feels it is currently dry. Not using neb 4x/day, encouraged to do so if feeling sob, or as though can can not expectorate sputum. Denies any increased sob, cp or fever. Has not checked her vs this am "I just woke up" Denies any other needs or concerns at this time. Aware to call [facility] with any urgent but non-emergent needs- has [phone] # documented in this encounter Plan of Treatment Upcoming Encounters Date Type Specialty Care Team Description 05/09/2022 Scheduled Telephone [facility] Stave Cutting Supervisor, [facility] Scott Decker [address] [place] [address] 05/10/2022 Home Visit [facility] July Poe RN [address] [place] [address] 05/11/2022 Imaging Radiology 05/11/2022 Hem/Onc Treatment Hematology Oncology [place], Chair 9 Hem Onc Sc[address]ery [address] [place] [address] 05/13/2022 Office Visit Family Medicine Vanita Dunn MD [address], [place] [phone] 05/20/2022 Telemedicine [facility] Joselin Dawson CRNP [address] [place] [address] Kaylee Barakat, [facility] Farm Equipment Mechanic Apprentice [address] [place] [address] 05/24/2022 Home Visit Family Medicine Kaylee Barakat, [facility] Farm Equipment Mechanic Apprentice [facility]note 2] [place] [address] 05/30/2022 Office Visit Gynecology Obstetrics Susan Jara MD [address] [place] [address] 06/01/2022 Office Visit Pharmacy Pharmacist1, [facility] 200 [place] [address] 06/24/2022 Office Visit Sleep Disorders Love Francisco DO 132 [place] [address] 07/04/2022 Office Visit Gynecology Obstetrics Concetta Khan MD [address] [place] [address] 08/23/2022 Office Visit Endocrinology Alberta Duque PA-C [address] [place], [place] [phone] 08/30/2022 Office Visit Gastroenterology Lyssa Stout CRNP 132 [place] [address] 09/14/2022 PulmDiagnostic Pulmonary Function West, Pft 132 [place] [address] 09/28/2022 Office Visit Pulmonary Reynaldo Marquez MD [address] [place] [address] 10/26/2022 Office Visit Hematology Oncology Tono Sanchez MD 200 [facility], [place] [phone] Scheduled Procedures Name Priority Associated Diagnoses Date/Ti [...] of this encounter Implants Implanted Type Area Animal Park Code Enforcement Officer Device Identifier Shelf Expiration Date Model / Serial / Lot Microtech Sure Clip Implanted:Qty: 2 on 06/03/2020 by Janis Hatch DO at OR [facility] Clip N/A: Colon 04/21/2022 [facility]-F-26-2 35-C-R / / [id number] documented as of this encounter Additional Health Concerns Infection Onset Date Last Indicated Resolved Time COVID-19 (confirmed) 04/29/2022 04/29/2022 documented as of this encounter Advance Directives Documents on File Type Date Recorded Patient Web Production Designer 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 WILL AND HEALTH CARE POA Power of Program Development Specialist 04/29/2021 12:00 AM TOM R OF HUMAN RESOURCES REPRESENTATIVE HEALTH CARE POA Advanced Directive 04/01/2021 [...] Agent [facility] p Communication Syed Bustos Spouse Emergency Contact Care Teams Gill Net Stringer Relationship Specialty Start Date End Date Vanita Dunn MD [address] [place] [address] PCP - General Family Medicine 03/16/21 documented as of this encounter
--- OUTSIDE RECORDS SUMMARY | 2023-05-10 18:26 | External Medical Summary | Summary of Care ---
Author Name Unknown Organization [place] [address] Care Team Providers Care Floral Arranger Name Role Phone Vanita Dunn MD Primary Care Provid er Reason for Visit * Reason Onset Date Comments Appointment 05/06/2022 Encounter Details Date Type Department Care Team Description 05/06/2022 Telephone [facility], [place] [facility] [place] [address] Services, Scheduling [address] [place] [address] Appointment 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 documented as of this encounter (statuses as of 05/06/2022) Medications Medication Sig Dispensed Refills Start Date End Date Status nystatin (NYSTOP) 353207 UNIT/GM powder Apply topically to affected area 3 times a day. 60 g 1 10/16/2019 Active Dexcom G6 [employer] Dean Device Use as directed. To test blood sugars 4 times a day Dx E11.9 1 Each 0 09/14/2020 Active Dexcom G6 Transmitter Use as directed. To test blood sugars 4 times a day. Change every 90 days. Dx E11.9 1 Each 3 09/14/2020 Active OneTouch Verio In Vitro Strip (Glucose Blood) TESTING once daily 100 Strip 3 10/29/2020 Active OneTouch Delica Plus [id number] TESTING once daily 100 Each 3 10/29/2020 [...] With food.. 90 Tablet 3 12/21/2021 Active Spironolactone 25 MG Oral Tablet (Aldactone) TAKE 2 TABLETS BY MOUTH ONCE DAILY 60 Tablet 3 01/14/2022 Active Escitalopram Oxalate 20 MG Oral Tablet [...] amount:6 capsules 360 Capsule 0 05/05/2022 Active Hospital, Clinic, or Other Facility Administered [...] pain 01/24/2012 01/17/2017 Genetic Sleep Disorder Research Other*[id number] 05/13/2011 04/07/2016 Obstructive sleep apnea 01/18/2011 12/27/19 [...] * Telephone Encounter - THAD Coleman - 05/06/2022 10:36 AM EDT Call to pt to confirm upcoming appt: 05/10-shelby 1 rncm 05/13-pcp 05/20-shelby 3 telemed provider She is aware and agreeable to above appts. documented in this encounter Plan of Treatment Upcoming Encounters Date Type Specialty Care Team Description 05/07/2022 Scheduled Telephone [facility], Nurse [address] [place] [address] 2022 Scheduled Telephone [facility], Nurse [address] [place] [address] 05/09/2022 Scheduled Telephone [facility] Watch Assembly Inspector, [address] [place] [address] 05/10/2022 Home Visit [facility] July Poe RN 132 [facility] [place] [address] 05/11/2022 Imaging Radiology 05/11/2022 Hem/Onc Treatment Hematology Oncology [place], Chair 9 Hem Onc Sc[address]ery [address] [place] [address] 05/13/2022 Office Visit Family Medicine Vanita Dunn MD [address] [place] [address] 05/20/2022 Telemedicine [facility] Joselin Dawson CRNP 132 [facility] [place] [address] Kaylee Barakat, [facility] Shank Paperer [address] [place] [address] 05/24/2022 Home Visit Family Medicine Kaylee Barakat, [facility] Shank Paperer [address] [place], [place] [phone] 05/30/2022 Office Visit Gynecology Obstetrics Susan Jara MD [address] [place] [address] 06/01/2022 Office Visit Pharmacy Pharmacist1, [facility] [address] [place] [address] 06/24/2022 Office Visit Sleep Disorders Love Francisco, DO 132 [place] [address] 07/04/2022 Office Visit Gynecology Obstetrics Concetta Khan MD [address] [facility] [place] [phone] 08/23/2022 Office Visit Endocrinology Alberta Duque PA-C [address] [place] [address] 08/30/2022 Office Visit Gastroenterology Lyssa Stout CRNP 132 [place] [address] 09/14/2022 PulmDiagnostic Pulmonary Function West, Pft 132 [facility] [place] [address] 09/28/2022 Office Visit Pulmonary Reynaldo Marquez MD [address] [facility] [place] [address] 10/26/2022 Office Visit Hematology Oncology Tono Sanchez MD 200 [place] [address] Scheduled Procedures Name Priority Associated Diagnoses Date/Ti [...] of this encounter Implants Implanted Type Area Promotions Assistant Sales Marketing Device Identifier Shelf Expiration Date Model / Serial / Lot Microtech Sure Clip Implanted:Qty: 2 on 06/03/2020 by Janis Hatch DO at OR [facility] Clip N/A: Colon 04/21/2022 [facility]-F-26-2 35-C-R / / [id number] documented as of this encounter Additional Health Concerns Infection Onset Date Last Indicated Resolved Time COVID-19 (confirmed) 04/29/2022 04/29/2022 documented as of this encounter Advance Directives Documents on File Type Date Recorded Patient Count Team Member 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 WILL AND HEALTH CARE POA Power of Managing Consultant 04/29/2021 12:00 AM TOM R OF DIAGNOSTIC MEDICAL SONOGRAPHER HEALTH CARE POA Advanced Directive 04/01/2021 1:14 [...] on File Name Relationship [facility] Communication Syed Bustos Spouse Emergency Contact Care Teams Floral Arranger Relationship Specialty Start Date End Date Vanita Dunn MD [address] [facility] [place] [id number] PCP - General Family Medicine 03/16/21 documented as of this encounter
--- OUTSIDE RECORDS SUMMARY | 2023-05-10 18:26 | External Medical Summary | Summary of Care ---
Author Name Unknown Organization [facility] Address [place] [address] Care Team Providers Care Dry Cleaning Machine Operator Name Role Phone Vanita Dunn MD Primary Care Provid er Reason for Visit * Reason Onset Date Comments [facility]: Maintenance 05/06/2022 Encounter Details Date Type Department Care Team Description 05/06/2022 Scheduled Telephone [facility], [facility] [address] [facility] [place] [address] Coordinator, [facility] [address] [facility] [place] [address] 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 documented as of this encounter (statuses as of 05/06/2022) Medications Medication Sig Dispensed Refills Start Date End Date Status nystatin (NYSTOP) 124732 UNIT/GM powder Apply topically to affected area 3 times a day. 60 g 1 10/16/2019 Active Dexcom G6 Sports Marketer Device Use as directed. To test blood sugars 4 times a day Dx E11.9 1 Each 0 09/14/2020 Active Dexcom G6 Transmitter Use as directed. To test blood sugars 4 times a day. Change every 90 days. Dx E11.9 1 Each 3 09/14/2020 Active OneTouch Verio In Vitro Strip (Glucose Blood) TESTING once daily 100 Strip 3 10/29/2020 Active OneTouch Delica Plus [id number] TESTING once daily 100 Each 3 10/29/2020 [...] mobility and ADLs 04/04/2019 Wheelchair dependent 12/21/2018 TAHD on CPAP 12/26/2017 Cirrhosis of liver 11/20/2017 [...] pain 01/24/2012 01/17/2017 Genetic Sleep Disorder Research Other*[id number] 05/13/2011 04/07/2016 Obstructive sleep apnea 01/18/2011 12/27/19 [...] Telephone Encounter - Lakeshia Flores RN - 05/06/2022 9:23 AM EDT COVID Follow up Type: [facility] Date of onset of COVID symptoms: 04/29/22 Date of positive COVID test: 04/29/22 COVID Targeted Medications: N/A Current concerns: Spoke with Shaina Monitoring Device: Device Type: Home Kit Device trigger/concerns with remote patient monitoring readings within past 24 hours: N/A Utilization within the past 24 hours: None Problems/Symptoms: Patients current temperature afebrile Highest recorded temperature within the last 24 hours no fever Use of antipyretics? No Oxygen Requirements: Room Air Increased oxygen needs in past 24 hours: N/A Oxygen saturation per oximeter: na Pulse rate per oximeter: na Symptoms: Cough Cough description: Nonproductive Anticoagulation: Has the patient been started on anticoagulation due to COVID-19? No Treatment/Plan: Anticoagulation: N/A Test Results: Positive Your test [...] they have cold/flu symptoms, they should call [facility] COVID-19 hotline at [phone] and get tested for the virus. Treat your symptoms with tzsc-xal-dcugkkx medications, such as Tylenol. If you develop new symptoms or your symptoms are worsening, call your Health Aide/[facility] Intake Team/PCP for advice. If you begin to experience a medical emergency, call 911 and advise them that you have tested positive for COVID-19 If you are a [employer] staff member or employee, when you receive your result, please call [employer] [facility] between 7 a.m. and 4 p.m. at [phone]. Notify them of your test results and for instructions on returning to work after your quarantine period. Your primary care provider will be notified of your results. Contact them for follow-up care. Has patient recovered (per current guidelines defining recovery)? No Is the patient an employee of [employer]? No. Follow Up: Patient encouraged to call with all urgent but not emergent issues. Scheduled to follow up with patient in one day ARASH Rodriguez Supervisor Front [facility] documented in this encounter Plan of Treatment Upcoming Encounters Date Type Specialty Care Team Description 05/07/2022 Scheduled Telephone [facility], Nurse [facility] [address] [place] [id number] 2022 Scheduled Telephone [facility], [place] [address] [place] [address] 05/09/2022 Scheduled Telephone [facility] Server Manager, [facility] [address] [place] [address] 05/10/2022 Home Visit [facility] July Poe RN [address] [place] [address] 05/11/2022 Imaging Radiology 05/11/2022 Hem/Onc Treatment Hematology Oncology [place], Chair [address] Hem Onc Sc[address] [place] [address] 05/13/2022 Office Visit Family Medicine Vanita Dunn MD [address] [place] [address] 05/24/2022 Home Visit Family Medicine Kaylee Barakat, [facility] Fast Food Assistant Restaurant Manager [address] [place] [address] 05/30/2022 Office Visit Gynecology Obstetrics Susan Jara MD [address] [place], [place] [phone] 06/01/2022 Office Visit Pharmacy Pharmacist1, [facility] [address] [place] [address] 06/24/2022 Office Visit Sleep Disorders Love Francisco DO 132 [facility] [place] [address] 07/04/2022 Office Visit Gynecology Obstetrics Concetta Khan MD [address] [place], [place] [phone] 08/23/2022 Office Visit Endocrinology Alberta Duque PA-C [address] [place] [address] 08/30/2022 Office Visit Gastroenterology Lyssa Stout CRNP [address] [facility] [place] [address] 09/14/2022 PulmDiagnostic Pulmonary Function West, [address] [place] [address] 09/28/2022 Office Visit Pulmonary Reynaldo Marquez MD [address] [place] [phone] 10/26/2022 Office Visit Hematology Oncology Tono Sanchez MD 200 [facility], [place] [phone] Scheduled Procedures Name Priority Associated Diagnoses Date/Ti [...] of this encounter Implants Implanted Type Area Aquatic Facility Manager Device Identifier Shelf Expiration Date Model / Serial / Lot Microtech Sure Clip Implanted:Qty: 2 on 06/03/2020 by Janis Hatch DO at OR [facility] Clip N/A: Colon 04/21/2022 [facility]-F-26-2 35-C-R / / [id number] documented as of this encounter Additional Health Concerns Infection Onset Date Last Indicated Resolved Time COVID-19 (confirmed) 04/29/2022 04/29/2022 documented as of this encounter Advance Directives Documents on File Type Date Recorded Patient [place] Polisher 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 WILL AND HEALTH CARE POA Power of Network Strategist 04/29/2021 12:00 AM TOM R OF [facility] POA Advanced Directive 04/01/2021 1:14 [...] Syed Bustos Spouse Emergency Contact Care Teams Dry Cleaning Machine Operator Relationship Specialty Start Date End Date Vanita Dunn MD [address], [place] [phone] PCP - General Family Medicine 03/16/21 documented as of this encounter
--- OUTSIDE RECORDS SUMMARY | 2023-05-10 18:27 | External Medical Summary | Summary of Care ---
Author Name Unknown Organization [place] [address] Care Team Providers Care Psychological Anthropologist Name Role Phone Vanita Dunn MD Primary Care Provid er Reason for Visit * Reason Onset Date Comments [facility]: Maintenance 05/05/2022 Encounter Details Date Type Department Care Team Description 05/05/2022 Telephone [facility], [facility] [address] [facility] [place] [address] [facility], Nurse [facility] [address] [facility] [place] [address] [facility]: Maintenance 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 documented as of this encounter (statuses as of 05/05/2022) Medications Medication Sig Dispensed Refills Start Date End Date Status nystatin (NYSTOP) 151749 UNIT/GM powder Apply topically to affected area 3 times a day. 60 g 1 10/16/2019 Active Dexcom G6 Industrial Paramedic Device Use as directed. To test blood sugars 4 times a day Dx E11.9 1 Each 0 09/14/2020 Active Dexcom G6 Transmitter Use as directed. To test blood sugars 4 times a day. Change every 90 days. Dx E11.9 1 Each 3 09/14/2020 Active OneTouch Verio In Vitro Strip (Glucose Blood) TESTING once daily 100 Strip 3 10/29/2020 Active OneTouch Delica Plus [id number] TESTING once daily 100 Each 3 10/29/2020 [...] as of this encounter (statuses as of 05/05/2022) Active Problems Problem Noted Date Hypertensive heart [...] as of this encounter (statuses as of 05/05/2022) Resolved Problems Problem Noted Date Resolved Date [...] pain 01/24/2012 01/17/2017 Genetic Sleep Disorder Research Other*[id number] 05/13/2011 04/07/2016 Obstructive sleep apnea 01/18/2011 12/27/19 [...] as of this encounter (statuses as of 05/05/2022) Immunizations Name Administration Dates Next Due COVID-19 [...] encounter Miscellaneous Notes * Telephone Encounter - Connie Dee LPN - 05/05/2022 7:44 PM EDT Noted dc from [facility] Call to pt she reports she is doing well, still has some sx of Coivid infection Declined TOVc visits until next week, agreeable to daily calls BALDOM[place] 1 05/10 laron Poe documented in this encounter Plan of Treatment Upcoming Encounters Date Type Specialty Care Team Description 05/06/2022 Scheduled Telephone [facility] Pattern Clerk, [facility] [address] [place] [address] 05/09/2022 Scheduled Telephone [facility] Pattern Clerk, [facility] 132 [facility] [place] [address] 05/10/2022 Home Visit [facility] July Poe RN 132 [facility] [place] [address] 05/11/2022 Imaging Radiology 05/11/2022 Hem/Onc Treatment Hematology Oncology [place], Chair 9 Hem Onc Scenery 200 [facility] [place] [address] 05/13/2022 Office Visit Family Medicine Vanita Dunn MD [address] [place] [address] 05/24/2022 Home Visit Family Medicine Kaylee Barakat, [facility] Sweatband Shaper [address] [place] [address] 05/30/2022 Office Visit Gynecology Obstetrics Susan Jara MD [address] [place] [address] 06/01/2022 Office Visit Pharmacy Pharmacist1, [facility] [address] [facility] [place] [address] 06/24/2022 Office Visit Sleep Disorders Love Francisco DO [address] [place] [address] 07/04/2022 Office Visit Gynecology Obstetrics Concetta Khan MD [address] [place], [place] [phone] 08/23/2022 Office Visit Endocrinology Alberta Duque PA-C [address] [place] [address] 08/30/2022 Office Visit Gastroenterology Lyssa Stout CRNP [address] [place] [address] 09/14/2022 PulmDiagnostic Pulmonary Function West, Pft 132 [place] [address] 09/28/2022 Office Visit Pulmonary Reynaldo Marquez MD [address] [place] [address] 10/26/2022 Office Visit Hematology Oncology Tono Sanchez MD 200 [place] [address] Scheduled Procedures Name Priority Associated Diagnoses Date/Ti [...] of this encounter Implants Implanted Type Area Carpenter Assembler Device Identifier Shelf Expiration Date Model / Serial / Lot Microtech Sure Clip Implanted:Qty: 2 on 06/03/2020 by Janis Hatch DO at OR [facility] Clip N/A: Colon 04/21/2022 [facility]-F-26-2 35-C-R / / [id number] documented as of this encounter Additional Health Concerns Infection Onset Date Last Indicated Resolved Time COVID-19 (confirmed) 04/29/2022 04/29/2022 documented as of this encounter Advance Directives Documents on File Type Date Recorded Patient Career Specialist 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 AND HEALTH CARE POA Power of Production Helper 04/29/2021 12:00 AM TOM R OF HOTEL OR MOTEL ROOM SERVICE SUPERVISOR HEALTH CARE POA Advanced Directive 04/01/2021 [...] Syed Bustos Spouse Emergency Contact Care Teams Psychological Anthropologist Relationship Specialty Start Date End Date Vanita Dunn MD [address] [facility] [place] [address] PCP - General Family Medicine 03/16/21 documented as of this encounter
--- OUTSIDE RECORDS SUMMARY | 2023-05-10 18:27 | External Medical Summary | Summary of Care ---
Author Name Unknown Organization [facility] Address [place], [place] [address] Care Team Providers Care Tower Technician Name Role Phone Kojo Dunn MD Primary Care Provid er Reason for Visit * Reason Comments eRx-Medication Refill Encounter Details Date Type Department Care Team Description 05/04/2022 Refill [facility] [address] [place] [address] Brianne Pal PA-C [address] [place] [address] DM type 2 with diabetic peripheral neuropathy (HCC); Diabetic foot (HCC) 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 documented as of this encounter (statuses as of 05/05/2022) Medications Medication Sig Dispensed Refills Start Date End Date Status nystatin (NYSTOP) 681084 UNIT/GM powder Apply topically to affected area 3 times a day. 60 g 1 0 Active Dexcom G6 Clothing Worker Device Use as directed. To test blood sugars 4 times a day Dx E11.9 1 Each 0 1 Active Dexcom G6 Transmitter Use as directed. To test blood sugars 4 times a day. Change every 90 days. Dx E11.9 1 Each 3 1 Active OneTouch Verio In Vitro Strip (Glucose Blood) TESTING once daily 100 Strip 3 1 Active OneTouch Delica Plus [id number] TESTING once daily 100 Each 3 1 [...] With food.. 90 Tablet 3 2 Active Spironolactone 25 MG Oral Tablet (Aldactone) TAKE 2 TABLETS BY MOUTH ONCE DAILY 60 Tablet 3 2 Active Escitalopram Oxalate 20 [...] amount:6 capsules 360 Capsule 0 2 Active Gabapentin 300 MG Oral Capsule (Neurontin)Indicati ons:DM type 2 with diabetic peripheral neuropathy (HCC),Diabetic foot (HCC) TAKE 1 CAPSULE BY MOUTH EVERY MORNING, 1 CAPSULE MIDDAY AND 2 CAPSULES IN THE EVENING. May take extra dose am and mid day if needed for pain - total of 6 a day max 360 Cap 1 1 05/05/20 22 Discontinued Hospital, Clinic, or Other Facility [...] pain 01/24/2012 01/17/2017 Genetic Sleep Disorder Research Other*[id number] 05/13/2011 04/07/2016 Obstructive sleep apnea 01/18/2011 12/27/19 [...] Telephone Encounter - Kojo Dunn MD - 05/05/2022 4:30 PM EDT Signed Prescriptions: Disp Refills Gabapentin 300 MG Oral Capsule (Neurontin) 360 Ca*0 Sig: take 1 capsule by mouth every morning, 1 capsule midday and 2 capsules in the evening. may take an extra dose in the morning and midday if needed for pain. max daily amount:6 capsules Authorizing Provider: KOJO DUNN * Telephone Encounter - Tamara Fabian LPN - 05/05/2022 9:03 AM EDT Pending Prescriptions: Disp Refills Gabapentin 300 MG Oral Capsule (Neurontin*360 Ca*0 Sig: take 1 capsule by mouth every morning, 1 capsule midday and 2 capsules in the evening. may take an extra dose in the morning and midday if needed for pain. max daily amount:6 capsules * Telephone Encounter - Tamara Fabian LPN - 05/05/2022 9:03 AM EDT Did you pend patient's preferred pharmacy and medication before forwarding?yes Pharmacy: [facility] [id number] Pending Prescriptions: Disp Refills Gabapentin 300 MG Oral Capsule (Neurontin*360 Ca*0 Sig: take 1 capsule by mouth every morning, 1 capsule midday and 2 capsules in the evening. may take an extra dose in the morning and midday if needed for pain. max daily amount:6 capsules Last Visit: 04/29/2022 (in office), 09/17/2021 (telemedicine) Next Visit: 05/13/2022 If no future appointments scheduled, and last appointment is greater than a year ago, please schedule patient for a follow-up appointment Last date the medication was ordered: Is this request for a controlled substance?No [...] AM HGBA1C 9.9 (H) 07/06/2020 05:24 AM * Telephone Encounter - Sowmya [facility] - 05/04/2022 11:32 PM EDT Pending Prescriptions: Disp Refills Gabapentin 300 MG Oral Capsule [Pharmacy M*360 Ca*0 Sig: take 1capsule by mouth every morning, 1 capsule midday and 2 capsules in the evening. may take an extra dose in the morning and midday if needed for pain. max daily amount:6 capsules documented in this encounter Plan of Treatment Upcoming Encounters Date Type Specialty Care Team Description 05/10/2022 Home Visit [facility] July Poe, RN [address] [place] [address] 05/11/2022 Imaging Radiology 05/11/2022 Hem/Onc Treatment Hematology [address] [place], Chair 9 Hem Onc [facility] 200 [place] [address] 05/13/2022 Office Visit Family Medicine Kojo Dunn MD [address] [place] [address] 05/24/2022 Home Visit Family Medicine Kaylee Barakat, [facility] Brake Operator Helper [address] [place] [address] 05/30/2022 Office Visit Gynecology Obstetrics Susan Jara MD 400 [place] [address] 06/01/2022 Office Visit Pharmacy Pharmacist1, [facility] 200 [place] [address] 06/24/2022 Office Visit Sleep Disorders Love Francisco DO [address] [place] [address] 07/04/2022 Office Visit Gynecology Obstetrics Concetta Khan MD [address] [place] [phone] 08/23/2022 Office Visit Endocrinology Alberta Duque PA-C [address] [place] [facility] [place] [address] 08/30/2022 Office Visit Gastroenterology Lyssa Stout, BOW STRING MAKER [facility] [address] 09/14/2022 PulmDiagnostic Pulmonary Function West, Pft 132 [facility] [place] [address] 09/28/2022 Office Visit Pulmonary Reynaldo Marquez MD [address] [place] [facility] [place] [address] 10/26/2022 Office Visit Hematology Oncology Tono Sanchez MD 200 [place] [address] Scheduled Procedures Name Priority Associated Diagnoses Date/Ti [...] of this encounter Implants Implanted Type Area Machine Setter Automatic Device Identifier Shelf Expiration Date Model / Serial / Lot Microtech Sure Clip Implanted:Qty: 2 on 06/03/2020 by Janis Hatch DO at OR [facility] Clip N/A: Colon 04/21/2022 [facility]-F-26-2 35-C-R / / [id number] documented as of this encounter Visit Diagnoses Diagnosis DM type 2 with diabetic peripheral neuropathy (HCC) Type II or unspecified type diabetes mellitus with neurological manifestations, not stated as uncontrolled Diabetic foot (HCC) Type II or unspecified type diabetes mellitus with other specified manifestations, not stated as uncontrolled documented in this encounter Additional Health Concerns Infection Onset Date Last Indicated Resolved Time COVID-19 (confirmed) 04/29/2022 04/29/2022 documented as of this encounter Advance Directives Documents on File Type Date Recorded Patient [employer] Special[employer] Cook 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 WILL AND HEALTH CARE POA Power of Fretted String Instrument Repairer 04/29/2021 12:00 AM TOM R OF NUCLEAR EQUIPMENT DESIGN ENGINEER HEALTH CARE POA Advanced Directive 04/01/2021 [...] Syed Bustos Spouse Emergency Contact Care Teams Tower Technician Relationship Specialty Start Date End Date Kojo Dunn MD [address] [place] [address] PCP - General Family Medicine 03/16/21 documented as of this encounter
--- OUTSIDE RECORDS SUMMARY | 2023-05-10 18:28 | External Medical Summary | Summary of Care ---
Author Name Unknown Organization [facility] [address] Care Team Providers Care Openstack Developer Name Role Phone Vanita Dunn MD Primary Care Provid er Reason for Visit * Reason Onset Date Comments COVID-19 Screening 05/03/2022 Encounter Details Date Type Department Care Team Description 05/03/2022 Telephone COVID19 Screening [facility] DEPT CLOSED 06/22/21 [address] [place] [id number], Automated Provider COVID-19 Screening 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 documented as of this encounter (statuses as of 05/03/2022) Medications Medication Sig Dispensed Refills Start Date End Date Status nystatin (NYSTOP) 722758 UNIT/GM powder Apply topically to affected area 3 times a day. 60 g 1 10/16/2019 Active Dexcom G6 Mop Machine Operator Device Use as directed. To [...] Strip 3 10/29/2020 Active OneTouch Delica Plus [id number] TESTING once daily 100 Each 3 10/29/2020 [...] a meal 90 Tab 3 06/02/2021 Active Gabapentin 300 MG Oral Capsule (Neurontin)Indication s:DM type 2 with diabetic peripheral neuropathy (HCC),Diabetic foot (HCC) TAKE 1 CAPSULE BY MOUTH EVERY MORNING, 1 CAPSULE MIDDAY AND 2 CAPSULES IN THE EVENING. May take extra dose am and mid day if needed for pain - total of 6 a day max 360 Cap 1 06/04/2021 Active traZODone HCl 50 MG Oral Tablet [...] Active Benzonatate 100 MG Oral Capsule (Tessalon Perlmelia)Indications:Br onchitis, complicated Take 1 Capsule by mouth [...] as of this encounter (statuses as of 05/03/2022) Active Problems Problem Noted Date Hypertensive heart [...] as of this encounter (statuses as of 05/03/2022) Resolved Problems Problem Noted Date Resolved Date [...] pain 01/24/2012 01/17/2017 Genetic Sleep Disorder Research Other*[id number] 05/13/2011 04/07/2016 Obstructive sleep apnea 01/18/2011 12/27/19 [...] as of this encounter (statuses as of 05/03/2022) Immunizations Name Administration Dates Next Due COVID-19 [...] Notes * Telephone Encounter - Covid Results [facility] - 05/03/2022 10:42 PM EDT Outreach Attempts IVR Call May 03 2022 9:12AM Answered - Success Results COVID: Positive IVR Message: Cecy Merritt. Your test results from 04/29/2022 00:00:00 are as follows: COVID-19 is positive. This means you are infected with coronavirus 19. You will be receiving an automated call daily for the next 10 days to monitor your symptoms. Please select 1 if you would like to receive symptom monitoringcalls. Please select 2 if you do not want to receive symptom monitoring calls. Here's what you need to do immediately: Isolate yourself in your home until: -You have had no fever for at least 24 hours (that is one full day of no fever without the use of medicine that reduces fevers) AND - other symptoms have improved (for example, when your cough or shortness of breath have improved) You are considered infectious for 10 days after your symptoms first appeared (day 0). After 5 days you can leave the house if you need to but must always wear a mask in public. If you cant keep a mask on, you should wait the 10 days to go out. If you live with others, isolate yourself to a single room away from them and avoid any contact during the quarantine time. You should wear a mask even at home when your are within 6 feet of others. Wash your hands frequently and cover your cough. If you were in close contact with any family members, roommates or friends in the 2 days before your cold/flu symptoms started, notify them that you tested positive for COVID-19. Tell them that if they have cold/flu symptoms, they should call [employer] hotline at [phone]. Treat your symptoms with pakj-uss-yxpzuxy medications, such as Tylenol. If you develop new symptoms or your symptoms are worsening, call [employer] hotline at [phone] or your physician for advice. If your symptoms become severe, go to the nearest ER. If you are alone and/or in distress, call 911. Your results are also available for your reference in your [employer] account under 'Test & Lab Results.' If you are not enrolled in [employer], you can create an account by going to [email or web address]. You will also receive a letter in the mail with your results. If you are a [facility] staff member or employee, when you receive your result, please call [facility] [employer] between 7 a.m. and 4 p.m. at [phone]. Notify them of your test results and for instructions on returning to work after your quarantine period. Press 1 if you would like to speak with a nurse, press 2 to hear this message again. documented in this encounter Plan of Treatment Upcoming Encounters Date Type Specialty Care Team Description 05/05/2022 Office Visit Cardiology Quyen Canseco CRNP [address] [place] [address] 05/10/2022 [facility] Visit [facility] July Poe, UMA 132 [place] [address] 05/11/2022 Imaging Radiology 05/11/2022 Hem/Onc Treatment Hematology Oncology [place], Chair 9 Hem Onc [facility] [address] [place] [address] 05/24/2022 Home Visit Family Medicine Kaylee Barakat, [facility] Windlasser [address] [place] [address] 05/30/2022 Office Visit Gynecology Obstetrics Susan J[facility] MD [address] [facility] [place], [place] [phone] 06/01/2022 Office Visit Pharmacy Pharmacist1, [facility] [address] [place] [address] 06/24/2022 Office Visit Sleep Disorders Love Francisco DO 132 [facility] [place] [address] 07/04/2022 Office Visit Gynecology Obstetrics Concetta Khan MD [address] [facility] [place], [place] [phone] 08/23/2022 Office Visit Endocrinology Alberta Duque PA-C [address] [place] [address] 08/30/2022 Office Visit Gastroenterology Lyssa Stout, IMMIGRATION LAWYER 132 [facility] [place] [address] 09/14/2022 PulmDiagnostic Pulmonary Function West, Pft 132 [facility] [place] [address] 09/28/2022 Office Visit Pulmonary Reynaldo Marquez MD [address] [place] [facility] [place] [address] 10/26/2022 Office Visit Hematology Oncology Tono Sanchez MD 200 [place] [address] Scheduled Procedures Name Priority Associated Diagnoses Date/Ti [...] of this encounter Implants Implanted Type Area Evp General Counsel Device Identifier Shelf Expiration Date Model / Serial / Lot Microtech Sure Clip Implanted:Qty: 2 on 06/03/2020 by Janis Hatch DO at OR H Clip N/A: Colon 04/21/2022 [facility]-F-26-2 35-C-R / / [id number] documented as of this encounter Additional Health Concerns Infection Onset Date Last Indicated Resolved Time COVID-19 (confirmed) 04/29/2022 04/29/2022 documented as of this encounter Advance Directives Documents on File Type Date Recorded Patient Package Drier 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 WILL AND HEALTH CARE POA Power of Fiber Optic Central Office Installer 04/29/2021 12:00 AM TOM R [facility] POA Advanced Directive 04/01/2021 1:14 PM [...] Agents on File Name Relationship [facility] Communication Syed Bustos Spouse Emergency Contact Care Teams Openstack Developer Relationship Specialty Start Date End Date Vanita Dunn MD [address] [place] [address] PCP - General Family Medicine 03/16/21 documented as of this encounter
--- OUTSIDE RECORDS SUMMARY | 2023-05-10 18:28 | External Medical Summary | Summary of Care ---
Author Name Unknown Organization [facility] Address [place] [address] Care Team Providers Care Utilities Operator Name Role Phone Vanita Dunn MD Primary Care Provid er Encounter Details Date Type Department Care Team Description 05/04/2022 Scan Encounter [facility] [address] [place] [address] Vanita Dunn MD [address] [place] [address] <No scans attached> 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 documented as of this encounter (statuses as of 05/05/2022) Medications Medication Sig Dispensed Refills Start Date End Date Status nystatin (NYSTOP) 348276 UNIT/GM powder Apply topically to affected area 3 times a day. 60 g 1 10/16/2019 Active Dexcom G6 [employer] Device Use as directed. To test blood sugars 4 times a day Dx E11.9 1 Each 0 09/14/2020 Active Dexcom G6 Transmitter Use as directed. To test blood sugars 4 times a day. Change every 90 days. Dx E11.9 1 Each 3 09/14/2020 Active OneTouch Verio In Vitro Strip (Glucose Blood) TESTING once daily 100 Strip 3 10/29/2020 Active OneTouch Delica Plus [id number] TESTING once daily 100 Each 3 10/29/2020 [...] 08/23/2021 Active Benzonatate 100 MG Oral Capsule ([place] Arnold)Indications:Br onchitis, complicated Take 1 Capsule by mouth [...] pain 01/24/2012 01/17/2017 Genetic Sleep Disorder Research Other*[id number] 05/13/2011 04/07/2016 Obstructive sleep apnea 01/18/2011 12/27/19 [...] Office Visit Cardiology Quyen Canseco CRNP [address] [place] [address] 05/10/2022 Home Visit [facility] July Poe RN [address] [place] [address] 05/11/2022 Imaging Radiology 05/11/2022 Hem/Onc Treatment Hematology Oncology [place], Chair 9 Hem Onc [address] [facility] [place] [address] 05/13/2022 Office Visit Family Medicine Vanita Dunn MD [address] [place] [address] 05/24/2022 Home Visit Family Medicine Kaylee Barakat, Community [facility] Train Starter [address] [place] [address] 05/30/2022 Office Visit Gynecology Obstetrics Susan Jara MD [address] [place], [place] [phone] 06/01/2022 Office Visit Pharmacy Pharmacist1, [facility] 200 [place] [address] 06/24/2022 Office Visit Sleep Disorders Love Francisco DO [address] [place] [address] 07/04/2022 Office Visit Gynecology Obstetrics Concetta Khan MD [address] [place], [place] [address] 08/23/2022 Office Visit Endocrinology Alberta Duque PA-C [address] [place], [place] [phone] 08/30/2022 Office Visit Gastroenterology Lyssa Stout CRNP [address] [place] [address] 09/14/2022 PulmDiagnostic Pulmonary Function West, Pft [address] [place] [address] 09/28/2022 Office Visit Pulmonary Reynaldo Marquez MD [address] [place], [place] [address] 10/26/2022 Office Visit Hematology Oncology Tono Sanchez MD 200 [place] [address] Scheduled Procedures Name Priority Associated Diagnoses Date/Ti [...] of this encounter Implants Implanted Type Area Refrigeration Plant Cork Insulator Device Identifier Shelf Expiration Date Model / Serial / Lot Microtech Sure Clip Implanted:Qty: 2 on 06/03/2020 by Janis Hatch DO at OR [facility] Clip N/A: Colon 04/21/2022 [facility]-F-26-2 35-C-R / / [id number] documented as of this encounter Additional Health Concerns Infection Onset Date Last Indicated Resolved Time COVID-19 (confirmed) 04/29/2022 04/29/2022 documented as of this encounter Advance Directives Documents on File Type Date Recorded Patient Color Control Operator 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 AND HEALTH CARE POA Power of Tool Filer Hand 04/29/2021 12:00 AM TOM R OF TALENT ACQUISITION ADMINISTRATOR HEALTH CARE POA Advanced Directive 04/01/2021 [...] Syed Bustos Spouse Emergency Contact Care Teams Utilities Operator Relationship Specialty Start Date End Date Vanita Dunn MD [address], [place] [phone] PCP - General Family Medicine 03/16/21 documented as of this encounter
--- OUTSIDE RECORDS SUMMARY | 2023-05-10 18:28 | External Medical Summary | Summary of Care ---
Author Name Unknown Organization [facility] Address [place] [address] Care Team Providers Care Recreation Officer Name Role Phone Vanita Dunn MD Primary Care Provid er Reason for Visit * Reason Onset Date Comments Fax 05/05/2022 Encounter Details Date Type Department Care Team Description 05/05/2022 Telephone [facility] [address] [place] [address] Vanita Dunn MD [address] [place] [address] Fax 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 documented as of this encounter (statuses as of 05/05/2022) Medications Medication Sig Dispensed Refills Start Date End Date Status nystatin (NYSTOP) 225637 UNIT/GM powder Apply topically to affected area 3 times a day. 60 g 1 10/16/2019 Active Dexcom G6 Tester Electronic Scale Device Use as directed. To test blood sugars 4 times a day Dx E11.9 1 Each 0 09/14/2020 Active Dexcom G6 Transmitter Use as directed. To test blood sugars 4 times a day. Change every 90 days. Dx E11.9 1 Each 3 09/14/2020 Active OneTouch Verio In Vitro Strip (Glucose Blood) TESTING once daily 100 Strip 3 10/29/2020 Active OneTouch Delica Plus Azaxkm37A TESTING once daily 100 Each 3 10/29/2020 [...] pain 01/24/2012 01/17/2017 Genetic Sleep Disorder Research Other*[id number] 05/13/2011 04/07/2016 Obstructive sleep apnea 01/18/2011 12/27/19 [...] Miscellaneous Notes * Telephone Encounter - [facility] [place] - 05/05/2022 11:38 AM EDT Caller requesting the following information to be faxed: Name/Company of caller: Dulce from [facility] [employer] Information requested to be faxed: MIGUEL for chair lift Fax number: [phone] Attention to Name/Company: [employer] Any additional information?: States requested over a week ago for order. Transmission "OK" documented in this encounter Plan of Treatment Upcoming Encounters Date Type Specialty Care Team Description 05/05/2022 Office Visit Cardiology Quyen Canseco CRNP [address] [facility] [place] [address] 05/10/2022 [facility] Visit [facility] July Poe, RN [address] [facility] [place] [address] 05/11/2022 Imaging Radiology 05/11/2022 Hem/Onc Treatment Hematology Oncology [place], Chair 9 Hem Onc [address] [place] [address] 05/13/2022 Office Visit Family Medicine Vanita Dunn MD [address] [place] [address] 05/24/2022 Home Visit Family Medicine Kaylee Barakat, Community [facility] Press Tender Incendiary Grenade [address] [place] [address] 05/30/2022 Office Visit Gynecology Obstetrics Susan Jara MD [address] [facility] [place] [address] 06/01/2022 Office Visit Pharmacy Pharmacist1, [facility] [address] [place] [address] 06/24/2022 Office Visit Sleep Disorders Love Francisco DO 132 [facility] [place] [address] 07/04/2022 Office Visit Gynecology Obstetrics Concetta Khan MD [address] [facility] [place] [address] 08/23/2022 Office Visit Endocrinology Alberta Duque PA-C [address] [place] [address] 08/30/2022 Office Visit Gastroenterology Lyssa Stout, MUNICIPAL BOND TRADER 132 [facility] [place] [address] 09/14/2022 PulmDiagnostic Pulmonary Function West, Pft [facility] [place] [address] 09/28/2022 Office Visit Pulmonary Reynaldo Marquez MD [address] [place] [facility] [place] [address] 10/26/2022 Office Visit Hematology Oncology Tono Sanchez MD [address] [place] [address] Scheduled Procedures Name Priority Associated Diagnoses Date/Ti [...] of this encounter Implants Implanted Type Area Rug Setter [place] Device Identifier Shelf Expiration Date Model / Serial / Lot Microtech Sure Clip Implanted:Qty: 2 on 06/03/2020 by Janis Hatch DO at OR [facility] Clip N/A: Colon 04/21/2022 [facility]-F-26-2 35-C-R / / [id number] documented as of this encounter Additional Health Concerns Infection Onset Date Last Indicated Resolved Time COVID-19 (confirmed) 04/29/2022 04/29/2022 documented as of this encounter Advance Directives Documents on File Type Date Recorded Patient Fermentation Operator 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 AND HEALTH CARE POA Power of Chief Executive Or Managing Director 04/29/2021 12:00 AM TOM R OF [facility] CARE POA Advanced Directive 04/01/2021 1:14 [...] Syed Bustos Spouse Emergency Contact Care Teams Recreation Officer Relationship Specialty Start Date End Date Vanita Dunn MD [address] [place] [address] PCP - General Family Medicine 03/16/21 documented as of this encounter
--- OUTSIDE RECORDS SUMMARY | 2023-05-10 18:29 | External Medical Summary | Summary of Care ---
Author Name Unknown Organization [facility] Address [place] [address] Care Team Providers Care Supervising Nurse Name Role Phone Vanita Dunn MD Primary Care Provid er Encounter Details Date Type Department Care Team Description 05/01/2022 Scan Encounter [facility] [address] [place] [address] Vanita Dunn MD [address] [place] [address] <No scans attached> 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 documented as of this encounter (statuses as of 05/02/2022) Medications Medication Sig Dispensed Refills Start Date End Date Status nystatin (NYSTOP) 747544 UNIT/GM powder Apply topically to affected area 3 times a day. 60 g 1 10/16/2019 Active Dexcom G6 Crystalizer Tender Device Use as directed. To test blood sugars 4 times a day Dx E11.9 1 Each 0 09/14/2020 Active Dexcom G6 Transmitter Use as directed. To test blood sugars 4 times a day. Change every 90 days. Dx E11.9 1 Each 3 09/14/2020 Active OneTouch Verio In Vitro Strip (Glucose Blood) TESTING once daily 100 Strip 3 10/29/2020 Active OneTouch Delica Plus Usnsiv19Z TESTING once daily 100 Each 3 10/29/2020 [...] as of this encounter (statuses as of 05/02/2022) Active Problems Problem Noted Date Hypertensive heart [...] as of this encounter (statuses as of 05/02/2022) Resolved Problems Problem Noted Date Resolved Date [...] pain 01/24/2012 01/17/2017 Genetic Sleep Disorder Research Other*[id number] 05/13/2011 04/07/2016 Obstructive sleep apnea 01/18/2011 12/27/19 [...] as of this encounter (statuses as of 05/02/2022) Immunizations Name Administration Dates Next Due COVID-19 [...] Encounters Date Type Specialty Care Team Description 05/03/2022 PulmDiagnostic Pulmonary Function West, Pft [address] [place] [address] 05/05/2022 Office Visit Cardiology Quyen Canseco CRNP [address] [place] [address] 05/10/2022 [facility] Visit [facility] July Poe, RN 132 [facility] [place] [address] 05/11/2022 Imaging Radiology 05/11/2022 Hem/Onc Treatment Hematology Oncology [place], Chair 9 Hem Onc [address] [place] [address] 05/24/2022 Home Visit Family Medicine Kaylee Barakat, Community [facility] Energy Analyst [address] [place] [address] 05/30/2022 Office Visit Gynecology Obstetrics Susan Jara MD [address] [place] [address] 06/01/2022 Office Visit Pharmacy Pharmacist1, [facility] [address] [place] [address] 06/24/2022 Office Visit [facility] Disorders [facility] [place] [address] 07/04/2022 Office Visit Gynecology Obstetrics Concetta Khan MD [address] [place] [address] 08/23/2022 Office Visit Endocrinology Alberta Duque PA-C [address] [place] [address] 08/30/2022 Office Visit Gastroenterology Lyssa Stout CRNP [address] [place] [address] 09/14/2022 PulmDiagnostic Pulmonary Function West, Pft [address] [place] [address] 09/28/2022 Office Visit Pulmonary AlmaReynaldo MD [address] [facility] [place] [address] 10/26/2022 Office Visit Hematology Oncology Tono Sanchez MD 200 [facility] [place] [facility] [address] Scheduled Procedures Name Priority Associated Diagnoses Date/Ti [...] of this encounter Implants Implanted Type Area Seed District Sales Manager Device Identifier Shelf Expiration Date Model / Serial / Lot Microtech Sure Clip Implanted:Qty: 2 on 06/03/2020 by Janis Hatch DO at OR [facility] Clip N/A: Colon 04/21/2022 [facility]-F-26-2 35-C-R / / [id number] documented as of this encounter Additional Health Concerns Infection Onset Date Last Indicated Resolved Time COVID-19 (confirmed) 04/29/2022 04/29/2022 documented as of this encounter Advance Directives Documents on File Type Date Recorded Patient Agile Project Manager Expl 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 AND HEALTH CARE POA Power of Warp Spooler 04/29/2021 12:00 AM TOM R OF GENERAL EDUCATION INSTRUCTOR HEALTH CARE POA Advanced Directive 04/01/2021 1:14 [...] Agents on File Name Relationship Healthcare Agent [facility] p Communication Syed Bustos Spouse Emergency Contact Care Teams Supervising Nurse Relationship Specialty Start Date End Date Vanita Dunn MD [address] [place] [address] PCP - General Family Medicine 03/16/21 documented as of this encounter
--- OUTSIDE RECORDS SUMMARY | 2023-05-10 18:29 | External Medical Summary | Summary of Care ---
Author Name Unknown Organization [place] [address] Care Team Providers Care Net C Developer Name Role Phone Vanita Dunn MD Primary Care Provid er Reason for Visit * Reason Onset Date Comments COVID-19 Screening 05/02/2022 Encounter Details Date Type Department Care Team Description 05/02/2022 Telephone COVID19 Screening [facility] DEPT CLOSED 06/22/21 [address] [place] [address] [id number], Automated Provider COVID-19 Screening 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 documented as of this encounter (statuses as of 05/02/2022) Medications Medication Sig Dispensed Refills Start Date End Date Status nystatin (NYSTOP) 253518 UNIT/GM powder Apply topically to affected area 3 times a day. 60 g 1 10/16/2019 Active Dexcom G6 Stock Roller Device Use as directed. To test blood sugars 4 times a day Dx E11.9 1 Each 0 09/14/2020 Active Dexcom G6 Transmitter Use as directed. To test blood sugars 4 times a day. Change every 90 days. Dx E11.9 1 Each 3 09/14/2020 Active OneTouch Verio In Vitro Strip (Glucose Blood) TESTING once daily 100 Strip 3 10/29/2020 Active OneTouch Delica Plus [id number] TESTING once daily 100 Each 3 10/29/2020 [...] pain 01/24/2012 01/17/2017 Genetic Sleep Disorder Research Other*[id number] 05/13/2011 04/07/2016 Obstructive sleep apnea 01/18/2011 12/27/19 [...] encounter Miscellaneous Notes * Telephone Encounter - Covsrinivasan Odom [facility] - 05/02/2022 11:23 PM EDT Outreach Attempts IVR Call May 02 2022 9:13AM Answered - Failed to Authenticate IVR Message: Unsuccessful contact, no education provided documented in this encounter Plan of Treatment Upcoming Encounters Date Type Specialty Care Team Description 05/03/2022 PulmDiagnostic Pulmonary Function West, Pft [address] [place] [address] 05/05/2022 Office Visit Cardiology Qu[facility]sec[facility] [address] 05/10/2022 [facility] July Poe RN 132 [place] [address] 05/11/2022 Imaging Radiology 05/11/2022 Hem/Onc Treatment Hematology Oncology [place], Chair 9 Hem Onc [facility] [address] [place] [address] 05/24/2022 Home Visit Family Medicine Kaylee Barakat, Community Health Transplant Nurse Practitioner [address] [place] [address] 05/30/2022 Office Visit Gynecology Obstetrics Susan Jara MD [address] [facility] [place] [address] 06/01/2022 Office Visit Pharmacy Pharmacist1, [facility] [address] [place] [address] 06/24/2022 Office Visit Sleep Disorders Love Francisco DO [facility] [address] 07/04/2022 Office Visit Gynecology Obstetrics Concetta Khan MD [address] [facility] [place] [id number] 08/23/2022 Office Visit Endocrinology Alberta Duque PA-C [address] [place] [address] 08/30/2022 Office Visit Gastroenterology Lyssa Stout CRNP 132 [facility] [place] [address] 09/14/2022 PulmDiagnostic Pulmonary Function West, Pft [address] [place] [address] 09/28/2022 Office Visit Pulmonary Reynaldo Marquez MD [address] [facility] [place] [address] 10/26/2022 Office Visit Hematology Oncology Tono Sanchez MD 200 [place] [address] Scheduled Procedures Name Priority Associated Diagnoses Date/Ti [...] of this encounter Implants Implanted Type Area Bleach Liquor Maker Device Identifier Shelf Expiration Date Model / Serial / Lot Microtech Sure Clip Implanted:Qty: 2 on 06/03/2020 by Janis Hatch DO at OR [facility] Clip N/A: Colon 04/21/2022 [facility]-F-26-2 35-C-R / / [id number] documented as of this encounter Additional Health Concerns Infection Onset Date Last Indicated Resolved Time COVID-19 (confirmed) 04/29/2022 04/29/2022 documented as of this encounter Advance Directives Documents on File Type Date Recorded Patient Chart Picker 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 LIVING WILL AND HEALTH CARE POA Power [facility] 04/29/2021 12:00 AM TOM R [facility] POA Advanced Directive 04/01/2021 1:14 PM [...] on File Name Relationship Healthcare [facility] Communication Syed Bustos Spouse Emergency Contact Care Teams Net C Developer Relationship Specialty Start Date End Date Vanita Dunn MD [address] [place] [address] PCP - General Family Medicine 03/16/21 documented as of this encounter
--- OUTSIDE RECORDS SUMMARY | 2023-05-10 18:30 | External Medical Summary | Summary of Care ---
Author Name Unknown Organization [facility] Address [place] [address] Care Team Providers Care Desk Top Publisher Name Role Phone Vanita Dunn MD Primary Care Provid er Encounter Details Date Type Department Care Team Description 04/30/2022 Scan Encounter [facility] [address] [place] [address] Vanita Dunn MD [address] [place] [address] <No scans attached> 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 documented as of this encounter (statuses as of 05/02/2022) Medications Medication Sig Dispensed Refills Start Date End Date Status nystatin (NYSTOP) 799232 UNIT/GM powder Apply topically to affected area 3 times a day. 60 g 1 10/16/2019 Active Dexcom G6 Senior Java Programmer Device Use as directed. To test blood sugars 4 times a day Dx E11.9 1 Each 0 09/14/2020 Active Dexcom G6 Transmitter Use as directed. To test blood sugars 4 times a day. Change every 90 days. Dx E11.9 1 Each 3 09/14/2020 Active OneTouch Verio In Vitro Strip (Glucose Blood) TESTING once daily 100 Strip 3 10/29/2020 Active OneTouch Delica Plus [id number] TESTING once daily 100 Each 3 10/29/2020 [...] pain 01/24/2012 01/17/2017 Genetic Sleep Disorder Research Other*[id number] 05/13/2011 04/07/2016 Obstructive sleep apnea 01/18/2011 12/27/19 [...] Pulmonary Function West, Pft [address] [place] [address] 05/05/2022 Office Visit Cardiology Quyen Canseco CRNP [address] [place] [address] 05/10/2022 [facility] Visit [facility] July Poe, RN 132 [facility] [place] [address] 05/11/2022 Imaging Radiology 05/11/2022 Hem/Onc Treatment Hematology Oncology [place], Chair 9 Hem Onc [address] [place] [address] 05/24/2022 Home Visit Family Medicine Kaylee Barakat, Community Health Body Component Engineer [address] [place] [address] 05/30/2022 Office Visit Gynecology Obstetrics Susan Jara MD [address] [place] [address] 06/01/2022 Office Visit Pharmacy Pharmacist1, [facility] [address] [place] [address] 06/24/2022 Office Visit Sleep Disorders Love Francisco [facility] [place] [address] 07/04/2022 Office Visit Gynecology Obstetrics Concetta Khan MD [address] [place] [address] 08/23/2022 Office Visit Endocrinology Alberta Duque PA-C [address] [place] [address] 08/30/2022 Office Visit Gastroenterology Lyssa Stout CRNP [address] [place] [address] 09/14/2022 PulmDiagnostic Pulmonary Function West, Pft [address] [place] [address] 09/28/2022 Office Visit Pulmonary AlmaReynaldo MD [address] [facility], [place] [address] 10/26/2022 Office Visit Hematology Oncology Tono Sanchez MD 200 [place] [address] Scheduled Procedures Name Priority Associated Diagnoses Date/Ti [...] of this encounter Implants Implanted Type Area Residential Field Manager Device Identifier Shelf Expiration Date Model / Serial / Lot Microtech Sure Clip Implanted:Qty: 2 on 06/03/2020 by Janis Hatch DO at OR [facility] Clip N/A: Colon 04/21/2022 [facility]-F-26-2 35-C-R / / [id number] documented as of this encounter Additional Health Concerns Infection Onset Date Last Indicated Resolved Time COVID-19 (confirmed) 04/29/2022 04/29/2022 documented as of this encounter Advance Directives Documents on File Type Date Recorded Patient Driver Education Road Instructor 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 WILL AND HEALTH CARE POA Power of Cell Pourer 04/29/2021 12:00 AM TOM R OF [facility] POA Advanced Directive 04/01/2021 1:14 [...] Name Relationship Healthcare Agent [facility] p Communication Syed Bustos Spouse Emergency Contact Care Teams Desk Top Publisher Relationship Specialty Start Date End Date Vanita Dunn MD [address] [place] [address] PCP - General Family Medicine 03/16/21 documented as of this encounter
--- OUTSIDE RECORDS SUMMARY | 2023-05-10 18:30 | External Medical Summary | Summary of Care ---
Author Name Unknown Organization [place] [address] Care Team Providers Care Computerized Table Cutter Name Role Phone Vanita Dunn MD Primary Care Provid er Encounter Details Date Type Department Care Team Description 04/30/2022 Result Scan Pulmonary Medicine Suzie Barrera [address] [place] [id number] Reynaldo Marquez MD [address] [place] [address] <No scans attached> 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 documented as of this encounter (statuses as of 05/02/2022) Medications Medication Sig Dispensed Refills Start Date End Date Status nystatin (NYSTOP) 194865 UNIT/GM powder Apply topically to affected area 3 times a day. 60 g 1 10/16/2019 Active Dexcom G6 Receiving Weigher Device Use as directed. To test blood sugars 4 times a day Dx E11.9 1 Each 0 09/14/2020 Active Dexcom G6 Transmitter Use as directed. To test blood sugars 4 times a day. Change every 90 days. Dx E11.9 1 Each 3 09/14/2020 Active OneTouch Verio In Vitro Strip (Glucose Blood) TESTING once daily 100 Strip 3 10/29/2020 Active OneTouch Delica Plus [id number] TESTING once daily 100 Each 3 10/29/2020 [...] pain 01/24/2012 01/17/2017 Genetic Sleep Disorder Research Other*[id number] 05/13/2011 04/07/2016 Obstructive sleep apnea 01/18/2011 12/27/19 [...] Pulmonary Function West, Pft [address] [place] [address] 05/04/2022 Imaging Radiology 05/05/2022 Office Visit Cardiology Quyen Canseco CRNP [address] [place] [address] 05/10/2022 [facility] July Poe, RN 132 [facility] [place] [address] 05/11/2022 Hem/Onc Treatment Hematology Oncology [place], Chair 9 Hem Onc Sc[address] [facility] [place] [address] 05/24/2022 Home Visit Family Medicine Kaylee Barakat, Community Health Hazmat Truck Driver [address] [place] [address] 05/30/2022 Office Visit Gynecology Obstetrics Susan Jara MD [address] [place] [address] 06/01/2022 Office Visit Pharmacy Pharmacist1, [facility] [address] [place] [place] [address] 06/24/2022 Office Visit Sleep Disorders Love Francisco DO 132 [facility] [place] [address] 07/04/2022 Office Visit Gynecology Obstetrics Concetta Khan MD [address] [place] [address] 08/23/2022 Office Visit Endocrinology Alberta Duque PA-C [address] [place] [address] 08/30/2022 Office Visit Gastroenterology Lyssa Stout CRNP [address] [place] [address] 09/14/2022 PulmDiagnostic Pulmonary Function West, Pft [address] [place] [address] 09/28/2022 Office Visit Pulmonary Reynaldo Marquez MD [address] [facility], [place] [address] 10/26/2022 Office Visit Hematology Oncology Tono Sanchez MD 200 [facility], [place] [id number] Scheduled Procedures Name Priority Associated Diagnoses Date/Ti [...] of this encounter Implants Implanted Type Area Solutions Engineer Device Identifier Shelf Expiration Date Model / Serial / Lot Microtech Sure Clip Implanted:Qty: 2 on 06/03/2020 by Janis Hatch DO at OR [facility] Clip N/A: Colon 04/21/2022 [facility]-F-26-2 35-C-R / / [id number] documented as of this encounter Procedures Procedure Name Priority Date/Time Associated Diagnosis Comments OUTSIDE LAB RESULTS 04/30/2022 documented in this encounter Results * OUTSIDE LAB RESULTS (04/30/2022) Specimen Narrative documented in this encounter Additional Health Concerns Infection Onset Date Last Indicated Resolved Time COVID-19 (confirmed) 04/29/2022 04/29/2022 documented as of this encounter Advance Directives Documents on File Type Date Recorded Patient Color Adviser 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 LIVING WILL AND HEALTH CARE POA Power Accountant Bookkeeper 04/29/2021 12:00 AM TOM [facility] POA Advanced Directive 04/01/2021 1:14 [...] Agents on File Name Relationship Healthcare Agent [facility] p Communication Syed Bustos Spouse Emergency Contact Care Teams Computerized Table Cutter Relationship Specialty Start Date End Date Vanita Dunn MD [address] [place] [address] PCP - General Family Medicine 03/16/21 documented as of this encounter
--- OUTSIDE RECORDS SUMMARY | 2023-05-10 18:30 | External Medical Summary | Summary of Care ---
Author Name Unknown Organization [facility] Address [place] [address] Care Team Providers Care Pile Operator Name Role Phone Vanita Dunn MD Primary Care Provid er Encounter Details Date Type Department Care Team Description 05/01/2022 Scan Encounter [facility] [address] [place] [address] Vanita Dunn MD [address] [place] [address] <No scans attached> 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 documented as of this encounter (statuses as of 05/02/2022) Medications Medication Sig Dispensed Refills Start Date End Date Status nystatin (NYSTOP) 988167 UNIT/GM powder Apply topically to affected area 3 times a day. 60 g 1 10/16/2019 Active Dexcom G6 Crusher Assembler Device Use as directed. To test blood sugars 4 times a day Dx E11.9 1 Each 0 09/14/2020 Active Dexcom G6 Transmitter Use as directed. To test blood sugars 4 times a day. Change every 90 days. Dx E11.9 1 Each 3 09/14/2020 Active OneTouch Verio In Vitro Strip (Glucose Blood) TESTING once daily 100 Strip 3 10/29/2020 Active OneTouch Delica Plus [id number] TESTING once daily 100 Each 3 10/29/2020 [...] pain 01/24/2012 01/17/2017 Genetic Sleep Disorder Research Other*[id number] 05/13/2011 04/07/2016 Obstructive sleep apnea 01/18/2011 12/27/19 [...] Pulmonary Function West, Pft [address] [place] [address] 05/05/2022 Office Visit Cardiology Quyen Canseco CRNP [address] [place] [address] 05/10/2022 [facility] Visit [facility] July Poe, RN 132 [facility] [place] [address] 05/11/2022 Imaging Radiology 05/11/2022 Hem/Onc Treatment Hematology Oncology [place], Chair 9 Hem Onc Sc[address]ery [address] [place] [address] 05/24/2022 Home Visit Family Medicine Kaylee Barakat, Community Health Freight Car Loader [address] [place] [address] 05/30/2022 Office Visit Gynecology Obstetrics Susan Jara MD [address] [place] [address] 06/01/2022 Office Visit Pharmacy Pharmacist1, [facility] [address] [place] [address] 06/24/2022 Office Visit [facility] Disorders [facility] [place] [address] 07/04/2022 Office Visit Gynecology Obstetrics Concetta Khan MD [address] [place] [address] 08/23/2022 Office Visit Endocrinology Alberta Duque PA-C [address] [place] [address] 08/30/2022 Office Visit Gastroenterology Lyssa Stout CRNP [address] [place] [address] 09/14/2022 PulmDiagnostic Pulmonary Function West, Pft [address] [place] [address] 09/28/2022 Office Visit Pulmonary AlmaReynaldo MD [address] [facility], [place] [address] 10/26/2022 Office Visit Hematology Oncology Tono Sanchez MD 200 [place] [address] Scheduled Procedures Name Priority Associated Diagnoses Date/Ti [...] of this encounter Implants Implanted Type Area Grinder Setup Operator Device Identifier Shelf Expiration Date Model / Serial / Lot Microtech Sure Clip Implanted:Qty: 2 on 06/03/2020 by Janis Hatch DO at OR [facility] Clip N/A: Colon 04/21/2022 [facility]-F-26-2 35-C-R / / [id number] documented as of this encounter Additional Health Concerns Infection Onset Date Last Indicated Resolved Time COVID-19 (confirmed) 04/29/2022 04/29/2022 documented as of this encounter Advance Directives Documents on File Type Date Recorded Patient Stock Broker 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 AND HEALTH CARE POA Power of Web Project Manager 04/29/2021 12:00 AM TOM R OF [place] CODE ENFORCEMENT OFFICER HEALTH CARE POA Advanced Directive 04/01/2021 1:14 [...] Syed Bustos Spouse Emergency Contact Care Teams Pile Operator Relationship Specialty Start Date End Date Vanita Dunn MD [address] [place] [address] PCP - General Family Medicine 03/16/21 documented as of this encounter
--- OUTSIDE RECORDS SUMMARY | 2023-05-10 18:31 | External Medical Summary | Summary of Care ---
Author Name Unknown Organization [place] [address] Care Team Providers Care Lottery Office Manager Name Role Phone Vanita Dunn MD Primary Care Provid er Reason for Visit * Reason Onset Date Comments COVID-19 Screening 05/01/2022 Encounter Details Date Type Department Care Team Description 05/01/2022 Telephone COVID19 Screening [facility] DEPT CLOSED 06/22/21 [address] [place] [address], Automated Provider COVID-19 Screening 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 documented as of this encounter (statuses as of 05/02/2022) Medications Medication Sig Dispensed Refills Start Date End Date Status nystatin (NYSTOP) 007988 UNIT/GM powder Apply topically to affected area 3 times a day. 60 g 1 10/16/2019 Active Dexcom G6 Front End Web Developer Device Use as directed. To test blood sugars 4 times a day Dx E11.9 1 Each 0 09/14/2020 Active Dexcom G6 Transmitter Use as directed. To test blood sugars 4 times a day. Change every 90 days. Dx E11.9 1 Each 3 09/14/2020 Active OneTouch Verio In Vitro Strip (Glucose Blood) TESTING once daily 100 Strip 3 10/29/2020 Active OneTouch Delica Plus [id number] TESTING once daily 100 Each 3 10/29/2020 [...] pain 01/24/2012 01/17/2017 Genetic Sleep Disorder Research Other*[id number] 05/13/2011 04/07/2016 Obstructive sleep apnea 01/18/2011 12/27/19 [...] Notes * Telephone Encounter - Covsrinivasan Odom [facility] - 05/02/2022 12:07 AM EDT Outreach Attempts IVR Call May 01 2022 9:15AM Answered - Failed to Authenticate IVR Message: Unsuccessful contact, no education provided documented in this encounter Plan of Treatment Upcoming Encounters Date Type Specialty Care Team Description 05/03/2022 PulmDiagnostic Pulmonary Function West, Pft [address] [place] [address] 05/04/2022 Imaging Radiology 05/05/2022 Office Visit Cardiology Quyen Canseco CRNP 132 [facility] [place] [address] 05/10/2022 [facility] July Poe RN 132 [facility] [address] 05/11/2022 Hem/Onc Treatment Hematology Oncology [place], Chair 9 Hem Onc [facility] 200 [place] [address] 05/24/2022 Home Visit Family Medicine Kaylee Barakat, Community Health Zoning Technician [address] [place] [address] 05/30/2022 Office Visit Gynecology Obstetrics Susan Jara MD 400 [place] [address] 06/01/2022 Office Visit Pharmacy Pharmacist1, [facility] [address] 06/24/2022 Office Visit Sleep Disorders Love Francisco DO 132 [facility] [place] [address] 07/04/2022 Office Visit Gynecology Obstetrics Concetta Khan MD 400 [facility] [place] [id number] 08/23/2022 Office Visit Endocrinology Alberta Duque PA-C [address] [place] [address] 08/30/2022 Office Visit Gastroenterology Lyssa Stout CRNP 132 [facility] [place] [address] 09/14/2022 PulmDiagnostic Pulmonary Function West, Pft [address] [place] [address] 09/28/2022 Office Visit Pulmonary Reynaldo Marquez MD [address] [facility] [place] [address] 10/26/2022 Office Visit Hematology Oncology Tono Sanchez MD 200 [place] [address] Scheduled Procedures Name Priority Associated Diagnoses Date/Ti [...] of this encounter Implants Implanted Type Area String Top Sealer Device Identifier Shelf Expiration Date Model / Serial / Lot Microtech Sure Clip Implanted:Qty: 2 on 06/03/2020 by Janis Hatch DO at OR [facility] Clip N/A: Colon 04/21/2022 [facility]-F-26-2 35-C-R / / [id number] documented as of this encounter Additional Health Concerns Infection Onset Date Last Indicated Resolved Time COVID-19 (confirmed) 04/29/2022 04/29/2022 documented as of this encounter Advance Directives Documents on File Type Date Recorded Patient Medication Reconciliation Technician 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 LIVING WILL AND HEALTH CARE POA Power [facility] 04/29/2021 12:00 AM TOM R [facility] POA Advanced Directive 04/01/2021 1:14 PM [...] Agents on File Name Relationship Healthcare Agent [facility] p Communication Syed Bustos Spouse Emergency Contact Care Teams Lottery Office Manager Relationship Specialty Start Date End Date Vanita Dunn MD [address] [place] [address] PCP - General Family Medicine 03/16/21 documented as of this encounter
--- OUTSIDE RECORDS SUMMARY | 2023-05-10 18:31 | External Medical Summary | Summary of Care ---
Author Name Unknown Organization [place] [address] Care Team Providers Care Medical Editor Name Role Phone Vanita Dunn MD Primary Care Provid er Reason for Visit * Reason Onset Date Comments COVID-19 Screening 04/30/2022 Encounter Details Date Type Department Care Team Description 04/30/2022 Telephone COVID19 Screening [facility] DEPT CLOSED 06/22/21 [address] [place] [address] [id number], Automated Provider COVID-19 Screening 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 documented as of this encounter (statuses as of 05/01/2022) Medications Medication Sig Dispensed Refills Start Date End Date Status nystatin (NYSTOP) 874009 UNIT/GM powder Apply topically to affected area 3 times a day. 60 g 1 10/16/2019 Active Dexcom G6 Medical Records Coordinator Device Use as directed. To test blood sugars 4 times a day Dx E11.9 1 Each 0 09/14/2020 Active Dexcom G6 Transmitter Use as directed. To test blood sugars 4 times a day. Change every 90 days. Dx E11.9 1 Each 3 09/14/2020 Active OneTouch Verio In Vitro Strip (Glucose Blood) TESTING once daily 100 Strip 3 10/29/2020 Active OneTouch Delica Plus [id number] TESTING once daily 100 Each 3 10/29/2020 [...] as of this encounter (statuses as of 05/01/2022) Active Problems Problem Noted Date Hypertensive heart [...] as of this encounter (statuses as of 05/01/2022) Resolved Problems Problem Noted Date Resolved Date [...] pain 01/24/2012 01/17/2017 Genetic Sleep Disorder Research Other*[id number] 05/13/2011 04/07/2016 Obstructive sleep apnea 01/18/2011 12/27/19 [...] as of this encounter (statuses as of 05/01/2022) Immunizations Name Administration Dates Next Due COVID-19 [...] Miscellaneous Notes * Telephone Encounter - Covid [facility] - 05/01/2022 1:21 AM EDT Outreach Attempts Apr 30 2022 9:04AM - Fail to reach patient IVR Message: Unsuccessful contact, no education provided documented in this encounter Plan of Treatment Upcoming Encounters Date Type Specialty Care Team Description 05/03/2022 PulmDiagnostic Pulmonary Function [place], Pft [address] [place] [address] 05/04/2022 Imaging Radiology 05/05/2022 Office Visit Cardiology Quyen Canseco CRNP 132 [facility] [place] [address] 05/10/2022 [facility] July Poe RN 132 [facility] [place] [address] 05/11/2022 Hem/Onc Treatment Hematology Oncology [place], Chair 9 Hem Onc [facility] [address] [place] [id number] 05/24/2022 Home Visit Family Medicine Kaylee Barakat, Community [facility] Carpenter [employer] [address] [place] [address] 05/30/2022 Office Visit Gynecology Obstetrics Susan Jara MD [address] [place] [address] 06/01/2022 Office Visit Pharmacy Pharmacist1, [facility] [address] [facility], [place] [address] 06/24/2022 Office Visit Sleep Disorders Love Francisco DO [address] [facility] [place] [address] 07/04/2022 Office Visit Gynecology Obstetrics Concetta Khan MD 400 [facility] [place] [id number] 08/23/2022 Office Visit Endocrinology Alberta Duque PA-C [address] [place] [address] 08/30/2022 Office Visit Gastroenterology Lyssa Stout CRNP [address] [facility] [place] [address] 09/14/2022 PulmDiagnostic Pulmonary Function West, Pft [address] [place] [address] 09/28/2022 Office Visit Pulmonary Reynaldo Marquez MD [address] [facility], [place] [address] 10/26/2022 Office Visit Hematology Oncology Tono Sanchez MD 200 [place] [address] Scheduled Procedures Name Priority Associated Diagnoses Date/Ti [...] Additional history exists Yearly B-12 07/06/2022 07/06/2021, 07/10/2020, 03/21/2021, Additional history exists DIABETES-HGBA1C EVERY 6 [...] of this encounter Implants Implanted Type Area Disability Coordinator Device Identifier Shelf Expiration Date Model / Serial / Lot Microtech Sure Clip Implanted:Qty: 2 on 06/03/2020 by Janis Hatch DO at OR [facility] Clip N/A: Colon 04/21/2022 [facility]-F-26-2 35-C-R / / [id number] documented as of this encounter Additional Health Concerns Infection Onset Date Last Indicated Resolved Time COVID-19 (confirmed) 04/29/2022 04/29/2022 documented as of this encounter Advance Directives Documents on File Type Date Recorded 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
--- OUTSIDE RECORDS SUMMARY | 2023-05-10 18:32 | External Medical Summary | Summary of Care ---
Author Name Unknown Organization [place] [address] Care Team Providers Care Demolition Crane Operator Name Role Phone Vanita Dunn MD Primary Care Provid er Reason for Visit * Reason Comments Follow Up Routine Other open area on buttock s Encounter Details Date Type Department Care Team Description 04/29/2022 Office Visit [facility] [address] [place] [address] Vanita Dunn MD [address] [place] [address] Contact with and (suspected) exposure to covid-19*; Spastic diplegic cerebral palsy (HCC); Obesity, morbid (more than 100 lbs over ideal weight or BMI > 40) ([facility]); DDD (degenerative disc disease), lumbar; Chronic pain syndrome; Wheelchair dependent; 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; Pressure injury of skin of sacral region, unspecified injury stage; Hypertensive heart disease with congestive heart failure, unspecified heart failure type (HCC); Pancytopenia ([facility]) 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 documented as of this encounter (statuses as of 04/29/2022) Medications Medication Sig Dispensed Refills Start Date End Date Status nystatin (NYSTOP) 539235 UNIT/GM powder Apply topically to affected area 3 times a day. 60 g 1 10/16/2019 Active Dexcom G6 Neuropsychologist Device Use as directed. To test blood sugars 4 times a day Dx E11.9 1 Each 0 09/14/2020 Active Dexcom G6 Transmitter Use as directed. To test blood sugars 4 times a day. Change every 90 days. Dx E11.9 1 Each 3 09/14/2020 Active OneTouch Verio In Vitro Strip (Glucose Blood) TESTING once daily 100 Strip 3 10/29/2020 Active Whale PathTouch Delica Plus Glvenf11Y TESTING once daily 100 Each 3 10/29/2020 [...] ([facility]) USE TO INJECT INSULIN FOUR TIMES DAILY. [...] as of this encounter (statuses as of 04/29/2022) Active Problems Problem Noted Date Hypertensive heart [...] as of this encounter (statuses as of 04/29/2022) Resolved Problems Problem Noted Date Resolved Date [...] pain 01/24/2012 01/17/2017 Genetic Sleep Disorder Research Other*[id number] 05/13/2011 04/07/2016 Obstructive sleep apnea 01/18/2011 12/27/19 [...] as of this encounter (statuses as of 04/29/2022) Immunizations Name Administration Dates Next Due COVID-19 [...] Sign Reading Time Taken Comments Blood Pressure 128/72 04/29/2022 2:37 PM EDT Pulse 73 04/29/2022 2:37 PM EDT Temperature 37.4 C (99.4 F) 04/29/2022 2:37 PM ED T Respiratory Rate - - Oxygen Saturation 95% 04/29/2022 2:37 PM EDT Inhaled Oxygen Concentration - - [...] Progress Notes * Vanita Dunn MD - 04/29/2022 2:49 PM EDT ASSESSMENT / PLAN: Contact with and (suspected) exposure to covid-19 (Primary) - SARS-COV-2 (COVID-19), NAAT Spastic diplegic cerebral palsy (HCC) - DURABLE MEDICAL EQUIPMENT Obesity, morbid (more than 100 lbs over ideal weight or BMI > 40) (HCC) - DURABLE MEDICAL EQUIPMENT DDD (degenerative disc disease), lumbar - DURABLE MEDICAL EQUIPMENT Chronic pain syndrome - DURABLE MEDICAL EQUIPMENT Wheelchair dependent - DURABLE MEDICAL EQUIPMENT 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 - DURABLE MEDICAL EQUIPMENT Pressure injury of skin of sacral region, unspecified injury stage - Silver sulfADIAZINE 1 % External Cream (Silvadene); Apply topically to affected area daily . Apply to wound Shaina Bustos is a 66 year old female. Here for recheck. Seen by this provider 4 months ago. PMHx includes: wheelchair bound, h/o CP, chronic diastolic HF, cirrhosis of liver NAFLD complicatedby esoph varices and portal hypertensive gastropathy, T2DM, morbid obesity, htn, hld , THAD on CPAP,restrictive lung disease, moderate persistent asthma, and chronic pain (Z20.822) Contact with and (suspected) exposure to covid-19 (primary encounter diagnosis) Plan: SARS-COV-2 (COVID-19), NAAT Asymptomatic currently. Nasal swab perform for COVID. Follow-up pending results. (G80.1) Spastic diplegic cerebral palsy (HCC) Plan: DURABLE MEDICAL EQUIPMENT, CANCELED: DURABLE MEDICAL EQUIPMENT Needs new sling as her current one does not fit her well, is causing cuts in her skin and the chainis uneven making it dangerous for her to use this. (E66.01) Obesity, morbid (more than 100 lbs over ideal weight or BMI > 40) (HCC) Plan: DURABLE MEDICAL EQUIPMENT, CANCELED: DURABLE MEDICAL EQUIPMENT As above (M51.36) DDD (degenerative disc disease), lumbar Plan: DURABLE MEDICAL EQUIPMENT, CANCELED: DURABLE MEDICAL EQUIPMENT As above (G89.4) Chronic pain syndrome Plan: DURABLE MEDICAL EQUIPMENT, CANCELED: DURABLE MEDICAL EQUIPMENT As above (Z99.3) Wheelchair dependent Plan: DURABLE MEDICAL EQUIPMENT, CANCELED: DURABLE MEDICAL EQUIPMENT As above (R39.81) 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 Plan: DURABLE MEDICAL EQUIPMENT, CANCELED: DURABLE MEDICAL EQUIPMENT As above (L89.159) Pressure injury of skin of sacral region, unspecified injury stage Plan: Silver sulfADIAZINE 1 % External Cream (Silvadene) Reviewed monitoring, her home health aide is vigilant. Do not think antibiotics are necessary at this time. Refill cream. If needed, prefers contact by: Ok to leave message on phone: Total time: I spent a total of 20-29 minutes (exact time 28 mins) on the date of service in preparation, delivery, and documentation of the care provided to Shaina Bustos excluding any time spent in the performance of separately billed services. SUBJECTIVE: Nursing Notes: Tamara Fabian, DEVAN 04/29/22 1444 Signed Chief Complaint Patient presents with Follow Up Routine Other open area on buttocks Sister in law thinks she has Covid, would like to be tested too. HPI: Shaina Bustos is a 66 year old female. Here for recheck. Seen by this provider 4 months ago. PMHx includes: wheelchair bound, h/o CP, chronic diastolic HF, cirrhosis of liver NAFLD complicatedby esoph varices and portal hypertensive gastropathy, T2DM, morbid obesity, htn, hld , THAD on CPAP,restrictive lung disease, moderate persistent asthma, and chronic pain Interim history : Seen by Gastroenterology yesterday for follow-up an LONG-TERM D cirrhosis, anemia, constipation. There were watching her blood counts and might consider tips if persistent anemia. TeleMed visit 04/26/2022 endocrinology for type 2 diabetes - they increased Lantus to 50 units daily, continue metformin ER and Trulicity. Followed by hematology for iron deficiency anemia, plan to continue IV iron every 3 weeks, blood work every 6 weeks, office visit in 6 months. Seen by pulmonology March 25, 2022, monitoring PFTs, continue Advair and p.r.n. albuterol, continue BiPAP with all sleep. Follow-up 6 months. Seen by Gynecology March 03, 2022. There for postop check. She was status post diagnostic hysteroscopy, D&C and insertion of Mirena IUD for postmenopausal bleeding. Some irregular bleeding persists, reassured that this is normal. Discussed she is not a surgical candidate given multiple comorbidities. Today: [id number] appears to have COVID symptoms and tested positive . Patient requesting testing. Also, says she needs new sling for lifting her out of bed. The one she currently has cuts into her skin, also the chains tend to be uneven so lifting is dangerous. Endorses ongoing vaginal bleedingbut mild. Breathing is at her baseline. Also states she has a small ulcer developing in her glutealcrease, somewhat painful, no bleeding or drainage, using silver sulfadiazine. Voices no other complaints today. Patient Active Problem List Diagnosis Code Venous [...] ideal weight or BMI > 40) ([facility]) E66.01 Dyslipidemia E78.5 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 R39.81 Acquired hypothyroidism E03.9 Chronic pain syndrome G89.4 MEDICATION USE AGREEMENT [id number] Cirrhosis of liver (HCC) K74.60 THAD on CPAP G47.33, Z99.89 Wheelchair dependent Z99.3 DM type 2 with diabetic peripheral neuropathy (HCC) E11.42 Primary insomnia F51.01 Recurrent major depressive disorder, in partial remission (HCC) F33.41 Impaired mobility and ADLs Z74.09, Z78.9 Gastroesophageal reflux disease K21.9 Fibromyalgia M79.7 Thrombocytopenia (HCC) D69.6 Iron deficiency anemia due to chronic blood loss D50.0 Esophageal varices ([facility]) I85.00 Portal hypertensive gastropathy ([facility]) K76.6, K31.89 Chronic diastolic (congestive) heart failure ([facility]) I50.32 Current Outpatient Medications Medication Sig Dispense Refill Silver sulfADIAZINE 1 % External Cream (Silvadene) Apply topically to affected area daily . Apply to wound 85 g 11 nystatin (NYSTOP) 533331 UNIT/GM powder Apply topically to affected area 3 times a day. 60 g 1 Dexcom G6 Neuropsychologist Device Use as directed. To test blood sugars 4 times a day Dx E11.9 1 Each 0 Dexcom G6 Transmitter Use as directed. To test blood sugars 4 times a day. Change every 90 days. Dx E11.9 1 Each 3 OneTouch Verio In Vitro Strip (Glucose Blood) TESTING once daily 100 Strip 3 OneTouch Delica Plus [id number] TESTING once daily 100 Each 3 Nitroglycerin [...] daily with a meal 90 Tab 3 Gabapentin 300 MG Oral Capsule (Neurontin) TAKE 1 CAPSULE BY MOUTH EVERY MORNING, 1 CAPSULE MIDDAY AND 2 CAPSULES IN THE EVENING. May take extra dose am and mid day if needed for pain - total of 6 a day max 360 Cap 1 traZODone HCl 50 MG Oral Tablet (Desyrel) TAKE 1 TABLET ONCE DAILY AT BEDTIME 90 Tab 3 Pantoprazole Sodium 20 MG Oral Tablet Delayed Release (Protonix) TAKE 2 TABLETS BY MOUTH TWICE DAILY 360 Tab 3 Fluticasone Propionate 50 MCG/ACT Nasal [...] INSULIN FOUR TIMES DAILY. 400 Each 3 Benzonatate 100 MG Oral Capsule (Tessalon Perles) Take 1 Capsule by mouth 3 times a day as needed for Cough. 30 Capsule 1 Budesonide-Formoterol Fumarate 160-4.5 MCG/ACT Inhalation Aerosol (Symbicort) [...] the morning. With food.. 90 Tablet 3 Spironolactone 25 MG Oral Tablet (Aldactone) TAKE 2 TABLETS BY MOUTH ONCE DAILY 60 Tablet 3 Escitalopram Oxalate 20 MG Oral [...] night at bedtime . 45 mL 3 Current Facility-Administered Medications Medication Dose Route Frequency Provider Last Rate Last Admin Albuterol Sulfate (Proventil) (2.5 MG/3ML) 0.083% inhalation solution 2.5 mg 2.5 mg Nebulizer PRN William oMrales PA-C Albuterol Sulfate (Proventil) (5 MG/ML) 0.5% *conc* inhalation solution 2.5 mg 2.5 mg NebulizerPRShae Morales PA-C OBJECTIVE: BP 128/72 | Pulse 73 | Temp 37.4 C (99.4 F) (Tympanic) | SpO2 95% Vitals reviewed and is normotensive afebrile and not tachycardic and pulse ox is 95% General: No acute distress. Neuro: Alert Pleasant & interactive. Sitting upright in wheel chair Respiratory: Good inspiratory effort, no labored breathing. CTAB CV: RRR no rubs or gallops. HEENT: Conjunctivae appear clear. No swelling noted face or lips. Skin: No rash visible on exposed skin areas, normal coloration & appears dry. Psych: Normal affect. Fluent speech. Vanita Dunn MD [address] [phone] There are no Patient Instructions on file for this visit. documented in this encounter Nursing Notes * Tamara Fabian, DEVAN - 04/29/2022 2:37 PM EDT Chief Complaint Patient presents with Follow Up Routine Other open area on buttocks Sister in law thinks she has Covid, would like to be tested too. documented in this encounter Plan of Treatment Upcoming Encounters Date Type Specialty Care Team Description 05/03/2022 PulmDiagnostic Pulmonary Function [place], Pft [address] [facility] [place] [address] 05/04/2022 Imaging Radiology 05/05/2022 Office Visit Cardiology Quyen Canseco CRNP 132 [facility] [place] [address] 05/10/2022 [facility] Visit [facility] July Poe RN [address] [facility] [place] [address] 05/11/2022 Hem/Onc Treatment Hematology [place]cology [place], Chair 9 Hem Onc [address] [place] [address] 05/24/2022 Home Visit Family Medicine Kaylee Barakat, Community Health [employer] [address] [place] [address] 05/30/2022 Office Visit [facility]necology [facility]stetric[facility] [place] [address] 06/01/2022 Office Visit Pharmacy Pharmacist1, [facility] [address] [place] [address] 06/24/2022 Office Visit Sleep Disorders Love Francisco DO [address] [place] [address] 07/04/2022 Office Visit Gynecology Obstetrics Concetta Khan MD 400 [place] [address] 08/23/2022 Office Visit Endocrinology Alberta Duque PA-C [address] [place] [address] 08/30/2022 Office Visit Gastroenterology Lyssa Stout CRNP [address] [place] [address] 09/14/2022 PulmDiagnostic Pulmonary Function West, Pft [address] [place] [address] 09/28/2022 Office Visit Pulmonary Reynaldo Marquez MD [address] [place] [place], [place] [address] 10/26/2022 Office Visit Hematology Oncology Tono Sanchez MD [address] [place], [place] [id number] Pending Results Name Type Priority Associated Diagnoses Date /Time SARS-COV-2 (COVID-19), NAAT Lab Routine Contact with and (suspected) exposure to covid-19 04/29/2022 3:35 PM EDT Scheduled Procedures Name Priority Associated Diagnoses Date/Ti id ESOPHAGOGASTRODUODENOSCOPY ( EGD), FLEXIBLE, TRANSORAL, DIAGNOSTIC Recall [...] of this encounter Implants Implanted Type Area Board Certified Family Physician Device Identifier Shelf Expiration Date Model / Serial / Lot Microtech Sure Clip Implanted:Qty: 2 on 06/03/2020 by Janis Hatch DO at OR [facility] Clip N/A: Colon 04/21/2022 [facility]-F-26-2 35-C-R / / [id number] documented as of this encounter Visit Diagnoses Diagnosis Contact with and (suspected) exposure to covid-19- Primary 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 Obesity, morbid (more than 100 lbs over ideal weight or BMI > 40) (HCC) Morbid obesity DDD (degenerative disc disease), lumbar Degeneration of lumbar or lumbosacral intervertebral disc Chronic pain syndrome Wheelchair dependent Wheelchair dependence 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 Functional urinary incontinence Pressure injury of skin of sacral region, unspecified injury stage Hypertensive heart disease with congestive heart failure, unspecified heart failure type (HCC) Pancytopenia (HCC) Other pancytopenia documented in this encounter Advance Directives Documents on File Type Date Recorded 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
--- OUTSIDE RECORDS SUMMARY | 2023-05-10 18:32 | External Medical Summary | Summary of Care ---
Author Name Unknown Organization [place] [address] Care Team Providers Care Global Marketing Operations Manager Name Role Phone Vanita Dunn MD Primary Care Provid er Reason for Visit * Reason Comments Follow Up Routine Other open area on buttock s Encounter Details Date Type Department Care Team Description 04/29/2022 Office Visit [facility] [address] [place] [address] Vanita Dunn MD [address] [place] [address] Contact with and (suspected) exposure to covid-19*; Spastic diplegic cerebral palsy (HCC); Obesity, morbid (more than 100 lbs over ideal weight or BMI > 40) ([facility]); DDD (degenerative disc disease), lumbar; Chronic pain syndrome; Wheelchair dependent; 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; Pressure injury of skin of sacral region, unspecified injury stage; Hypertensive heart disease with congestive heart failure, unspecified heart failure type (HCC); Pancytopenia ([facility]) 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 documented as of this encounter (statuses as of 04/29/2022) Medications Medication Sig Dispensed Refills Start Date End Date Status nystatin (NYSTOP) 793483 UNIT/GM powder Apply topically to affected area 3 times a day. 60 g 1 10/16/2019 Active Dexcom G6 Gum Mixer Device Use as directed. To test blood sugars 4 times a day Dx E11.9 1 Each 0 09/14/2020 Active Dexcom G6 Transmitter Use as directed. To test blood sugars 4 times a day. Change every 90 days. Dx E11.9 1 Each 3 09/14/2020 Active OneTouch Verio In Vitro Strip (Glucose Blood) TESTING once daily 100 Strip 3 10/29/2020 Active Boomerang.comTouch Delica Plus Mrjtqe79Z TESTING once daily 100 Each 3 10/29/2020 [...] pain 01/24/2012 01/17/2017 Genetic Sleep Disorder Research Other*[id number] 05/13/2011 04/07/2016 Obstructive sleep apnea 01/18/2011 12/27/19 [...] Seen by Gastroenterology yesterday for follow-up an [facility] D cirrhosis, anemia, constipation. There were watching [...] a surgical candidate given multiple comorbidities. Today: Tphcdt-zi-obc appears to have COVID symptoms and tested [...] ideal weight or BMI > 40) ([facility]) E66.01 Dyslipidemia E78.5 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 R39.81 Acquired hypothyroidism E03.9 Chronic pain syndrome G89.4 MEDICATION USE AGREEMENT [id number] Cirrhosis of liver (HCC) K74.60 THAD on CPAP G47.33, Z99.89 Wheelchair dependent Z99.3 DM type 2 with diabetic peripheral neuropathy (HCC) E11.42 Primary insomnia F51.01 Recurrent major depressive disorder, in partial remission (HCC) F33.41 Impaired mobility and ADLs Z74.09, Z78.9 Gastroesophageal reflux disease K21.9 Fibromyalgia M79.7 Thrombocytopenia (HCC) D69.6 Iron deficiency anemia due to chronic blood loss D50.0 Esophageal varices ([facility]) I85.00 Portal hypertensive gastropathy ([facility]) K76.6, K31.89 Chronic diastolic (congestive) heart failure ([facility]) I50.32 Current Outpatient Medications Medication Sig Dispense Refill Silver sulfADIAZINE 1 % External Cream (Silvadene) Apply topically to affected area daily . Apply to wound 85 g 11 nystatin (NYSTOP) 224051 UNIT/GM powder Apply topically to affected area 3 times a day. 60 g 1 Dexcom G6 Gum Mixer Device Use as directed. To test blood sugars 4 times a day Dx E11.9 1 Each 0 Dexcom G6 Transmitter Use as directed. To test blood sugars 4 times a day. Change every 90 days. Dx E11.9 1 Each 3 OneTouch Verio In Vitro Strip (Glucose Blood) TESTING once daily 100 Strip 3 OneTouch Delica Plus [id number] TESTING once daily 100 Each 3 Nitroglycerin [...] Normal affect. Fluent speech. Vanita Dunn MD [address] [address] There are no Patient Instructions on file [...] 05/03/2022 PulmDiagnostic Pulmonary Function West, Pft 132 [facility] [place] [address] 05/04/2022 Imaging Radiology 05/05/2022 Office Visit Cardiology Quyen Canseco CRNP 132 [facility] [place] [address] 05/10/2022 [facility] Visit [facility] July Poe RN 132 [facility] [place] [address] 05/11/2022 Hem/Onc Treatment Hematology Oncology [place], Chair 9 Hem Onc [address] [place] [address] 05/24/2022 Home Visit Family Medicine Kaylee Barakat, [facility] Ornamental Ironworking Supervisor [address] [place] [address] 05/30/2022 Office Visit [facility]ne[facility]stetrics [facility] [place] [address] 06/01/2022 Office Visit Pharmacy Pharmacist1, [facility] [address] [place] [address] 06/24/2022 Office Visit Sleep Disorders Love Francisco DO [address] [place] [address] 07/04/2022 Office Visit Gynecology Obstetrics Concetta Khan MD 400 [place] [address] 08/23/2022 Office Visit Endocrinology Alberta Duque PA-C [address] [place] [address] 08/30/2022 Office Visit Gastroenterology Lyssa Stout CRNP [address] [place] [address] 09/14/2022 PulmDiagnostic Pulmonary Function West, Pft [address] [place] [address] 09/28/2022 Office Visit Pulmonary Reynaldo Marquez MD [address] [place], [place] [phone] 10/26/2022 Office Visit Hematology Oncology Tono Sanchez MD [address] [place], [place] [id number] Pending Results Name Type Priority Associated Diagnoses Date /Time SARS-COV-2 (COVID-19), NAAT Lab Routine Contact with and (suspected) exposure to covid-19 04/29/2022 3:35 PM EDT Scheduled Procedures Name Priority Associated Diagnoses Date/Ti wa ESOPHAGOGASTRODUODENOSCOPY ( EGD), FLEXIBLE, TRANSORAL, DIAGNOSTIC Recall [...] of this encounter Implants Implanted Type Area Silver Spray Worker Device Identifier Shelf Expiration Date Model / Serial / Lot Microtech Sure Clip Implanted:Qty: 2 on 06/03/2020 by Janis Hatch DO at OR [facility] Clip N/A: Colon 04/21/2022 [facility]-F-26-2 35-C-R / / [id number] documented as of this encounter Visit Diagnoses [...] Documents on File Type Date Recorded Patient Garment Cutter 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 WILL AND HEALTH CARE POA Power of Scada Engineer 04/29/2021 12:00 AM TOM R OF GROUNDSKEEPING MAINTENANCE WORKER HEALTH CARE POA Advanced Directive 04/01/2021 1:14 [...] Agents on File Name Relationship Healthcare Agent [facility] Communication Syed Bustos Spouse Emergency Contact Care Teams Global Marketing Operations Manager Relationship Specialty Start Date End Date Vanita Dunn MD [address] [place] [address] PCP - General Family Medicine 03/16/21 documented as of this encounter"
--- OUTSIDE RECORDS SUMMARY | 2023-05-10 18:33 | External Medical Summary | Summary of Care ---
Author Name Unknown Organization [facility] Address [place] [address] Care Team Providers Care Coat Agent Name Role Phone Vanita Dunn MD Primary Care Provid er Reason for Visit * Reason Onset Date Comments Order Request 04/11/2022 Encounter Details Date Type Department Care Team Description 04/11/2022 Telephone [facility] [address] [place] [address] Vanita Dunn MD [address] [place] [address] Order Request 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 documented as of this encounter (statuses as of 04/29/2022) Medications Medication Sig Dispensed Refills Start Date End Date Status nystatin (NYSTOP) 651593 UNIT/GM powder Apply topically to affected area 3 times a day. 60 g 1 10/16/2019 Active Dexcom G6 Home Visitor Home Base Head Start Device Use as directed. To test blood sugars 4 times a day Dx E11.9 1 Each 0 09/14/2020 Active Dexcom G6 Transmitter Use as directed. To test blood sugars 4 times a day. Change every 90 days. Dx E11.9 1 Each 3 09/14/2020 Active OneTouch Verio In Vitro Strip (Glucose Blood) TESTING once daily 100 Strip 3 10/29/2020 Active OneTouch Delica Plus Sqclnr85Z TESTING once daily 100 Each 3 10/29/2020 [...] 06/02/2021 Active Gabapentin 300 MG Oral Capsule (Neurontin)Indicatio [...] Tablet (Desyrel)Indications :Sleep disturbances TAKE 1 TABLET ONCE DAILY AT [...] Active Levothyroxine Sodium 175 MCG Oral Tablet (Levoxyl)Indications :Acquired hypothyroidism Take 1 Tab by mouth daily. [...] 08/23/2021 Active Benzonatate 100 MG Oral Capsule (Tessalrosi Perlmelia)Indications:B ronchitis, complicated Take 1 Capsule by mouth 3 times a day as needed for Cough. 30 Capsule 1 09/17/2021 Active Budesonide-Formotero l Fumarate 160-4.5 MCG/ACT Inhalation [...] than 8.0% (HCC) Inject under the skin 42 Units every night at bedtime . Increase to 45 units at bedtime if BG greater than 180 after 1 week. 45 mL 3 04/06/2022 2 Discontinue d(Refill) documented as of this encounter (statuses as of 04/29/2022) Active Problems Problem Noted Date Chronic diastolic (congestive) heart jaymie lure 09/13/2021 [...] pain 01/24/2012 01/17/2017 Genetic Sleep Disorder Research Other*[id number] 05/13/2011 04/07/2016 Obstructive sleep apnea 01/18/2011 12/27/19 [...] Telephone Encounter - Michaelle Lindquist LPN - 04/12/2022 2:[address] DME if you agree we will need office notes to correspond with order. * Telephone Encounter - THAD Alegre - 04/11/2022 2:12 PM EDT An order was requested for this patient. Name of Requesting Provider: [facility] Order Requested: lift chair Diagnosis/Reason for Request: ambulatory disfunction Does the order need to be faxed somewhere? If so, where?: [facility] Fax Number, if applicable: [phone] Call Back Number: [phone] Patient needs a replacement lift chair and can get it through the waiver program but script needs to be signed by or . If the caller is not a current [...] 05/03/2022 PulmDiagnostic Pulmonary Function [place], Pft [address] [place] [address] 05/04/2022 Imaging Radiology 05/05/2022 Office Visit Cardiology Quyen Canseco CRNP 132 [facility] [place] [address] 05/10/2022 Home Visit [facility] July Poe RN [address] [place] [address] 05/11/2022 Hem/Onc Treatment Hematology Oncology [place], Chair 9 Hem Onc [facility] [address] 05/24/2022 Home Visit Family Medicine Kaylee Barakat, [facility] Mowing Machine Operator [address] [place] [address] 05/30/2022 Office Visit Gynecology Obstetrics Susan Jara MD [address] [place] [address] 06/01/2022 Office Visit Pharmacy Pharmacist1, [facility] [address] 06/24/2022 Office Visit Sleep Disorders Love Francisco DO 132 [place] [address] 07/04/2022 Office Visit Gynecology Obstetrics Concetta Khan MD [address] [place] [address] 08/23/2022 Office Visit Endocrinology Alberta Duque PA-C [address] [place] [facility] [address] 08/30/2022 Office Visit Gastroenterology Lyssa Stout CRNP 132 [facility] [place] [address] 09/14/2022 PulmDiagnostic Pulmonary Function West, Pft 132 [facility] [place] [address] 09/28/2022 Office Visit Pulmonary Reynaldo [facility] [address] [facility] [address] 10/26/2022 Office Visit Hematology Oncology Tono Sanchez MD 200 [place] [address] Scheduled Procedures Name Priority Associated Diagnoses Date/Ti [...] of this encounter Implants Implanted Type Area National Investigative Producer Device Identifier Shelf Expiration Date Model / Serial / Lot Microtech Sure Clip Implanted:Qty: 2 on 06/03/2020 by Janis Hatch DO at OR [facility] Clip N/A: Colon 04/21/2022 [facility]-F-26-2 35-C-R / / [id number] documented as of this encounter Visit Diagnoses Diagnosis Obesity, morbid (more than 100 lbs over ideal weight or BMI > 40) (HCC)- Primary Morbid obesity 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 DDD (degenerative disc disease), lumbar Degeneration of lumbar or lumbosacral intervertebral disc Chronic pain syndrome Wheelchair dependent Wheelchair dependence documented in this encounter Advance Directives Documents on File Type Date Recorded Patient Classifier 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 AND HEALTH CARE POA Power of Supervisor Respiratory 04/29/2021 12:00 AM TOM Johnson [facility] POA Advanced Directive 04/01/2021 1:14 PM [...] Agents on File Name Relationship Healthcare Agent [facility] p Communication Syed Bustos Spouse Emergency Contact Care Teams Coat Agent Relationship Specialty Start Date End Date Vanita Dunn MD [address] [place] [address] PCP - General Family Medicine 03/16/21 documented as of this encounter
--- OUTSIDE RECORDS SUMMARY | 2023-05-10 18:33 | External Medical Summary | Summary of Care ---
Author Name Unknown Organization [place] [address] Care Team Providers Care Manufacturing Maintenance Mechanic Name Role Phone Vanita Dunn MD Primary Care Provid er Reason for Visit * Reason Comments Outpatient Testing Encounter Details Date Type Department Care Team Description 04/28/2022 Laboratory Laboratory, [facility] 132 [place] [address] [facility] 132 [place] [address] Arrived 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 documented as of this encounter (statuses as of 04/28/2022) Medications Medication Sig Dispensed Refills Start Date End Date Status nystatin (NYSTOP) 402316 UNIT/GM powder Apply topically to affected area 3 times a day. 60 g 1 10/16/2019 Active Dexcom G6 Historiography Professor Device Use as directed. To test blood sugars 4 times a day Dx E11.9 1 Each 0 09/14/2020 Active Dexcom G6 Transmitter Use as directed. To test blood sugars 4 times a day. Change every 90 days. Dx E11.9 1 Each 3 09/14/2020 Active OneTouch Verio In Vitro Strip (Glucose Blood) TESTING once daily 100 Strip 3 10/29/2020 Active OneTouch Delica Plus [id number] TESTING once daily 100 Each 3 10/29/2020 [...] bedtime . 45 mL 3 04/20/2022 Active Hospital, Clinic, or Other Facility Administered [...] as of this encounter (statuses as of 04/28/2022) Active Problems Problem Noted Date Chronic diastolic [...] as of this encounter (statuses as of 04/28/2022) Resolved Problems Problem Noted Date Resolved Date [...] pain 01/24/2012 01/17/2017 Genetic Sleep Disorder Research Other*[id number] 05/13/2011 04/07/2016 Obstructive sleep apnea 01/18/2011 12/27/19 [...] as of this encounter (statuses as of 04/28/2022) Immunizations Name Administration Dates Next Due COVID-19 [...] Encounters Date Type Specialty Care Team Description 04/29/2022 Office Visit Family Medicine Vanita Dunn MD [address] [place] [address] 05/03/2022 PulmDiagnostic Pulmonary Function West, Pft [address] [place] [address] 05/04/2022 Imaging Radiology 05/05/2022 Office Visit Cardiology Quyen Canseco CRNP 132 [place] [address] 05/10/2022 Home Visit [facility] July Poe RN 132 [facility] [place] [address] 05/11/2022 Hem/Onc Treatment Hematology Oncology [place], Chair [address] [address] 05/24/2022 Home Visit Family Medicine Kaylee Barakat, [facility] Pin Inserter Regulator [address] [place], [place] [phone] 05/30/2022 Office Visit Gynecology Obstetrics Susan Jara MD 400 [place] [address] 06/01/2022 Office Visit Pharmacy Pharmacist1, [address] [place] [address] 06/24/2022 Office Visit Sleep Disorders Love Francisco DO 132 [facility] [place] [address] 07/04/2022 Office Visit Gynecology Obstetrics Concetta Khan MD [address] [place] [address] 08/30/2022 Office Visit Gastroenterology Lyssa Stout CRNP 132 [facility] [place] [address] 09/14/2022 PulmDiagnostic Pulmonary Function West, Pft [address] [place] [address] 09/28/2022 Office Visit Pulmonary Reynaldo Marquez MD [address] [place] [address] 10/26/2022 Office Visit Hematology Oncology Tono Sanchez MD 200 [place] [address] Scheduled Procedures Name Priority Associated Diagnoses Date/Ti [...] of this encounter Implants Implanted Type Area Electric Arc Welder Device Identifier Shelf Expiration Date Model / Serial / Lot Microtech Sure Clip Implanted:Qty: 2 on 06/03/2020 by Janis Hatch DO at OR [facility] Clip N/A: Colon 04/21/2022 [facility]-F-26-2 35-C-R / / [id number] documented as of this encounter Advance Directives Documents on File Type Date Recorded Patient Chief Executive Officer 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 WILL AND HEALTH CARE POA Power of Journalism Teacher 04/29/2021 12:00 AM TOM R OF CORPORATE LOGISTICS MANAGER HEALTH CARE POA Advanced Directive 04/01/2021 [...] Syed Bustos Spouse Emergency Contact Care Teams Manufacturing Maintenance Mechanic Relationship Specialty Start Date End Date Vanita Dunn MD [address] [place] [address] PCP - General Family Medicine 03/16/21 documented as of this encounter
--- OUTSIDE RECORDS SUMMARY | 2023-05-10 18:33 | External Medical Summary ---
Author Name Unknown Address Unknown Organization K01:[facility] - [address] [place] [address] [place] [address] Laboratory Report Ordering Provider Test Date Status MICAELA VARMA 04/29/2022 15:35:15 Final Observation Date Value Abnormality Reference (Units ) Status SARS Coronavirus 2 04/29/2022 15:35:15 Positive Abnormal N egative Final Performing Location [facility] - [address] [place] [address]
--- OUTSIDE RECORDS SUMMARY | 2023-05-10 18:34 | External Medical Summary | Summary of Care ---
Author Name Unknown Organization [place] [address] Care Team Providers Care Dry Goods Clerk Name Role Phone Vanita Dunn MD Primary Care Provid er Encounter Details Date Type Department Care Team Description 04/26/2022 Telemedicine Endocrinology, [place] [address] [place], [place] [id number] Alberta Duque PA-C [address], [place] [id number] Type 2 diabetes mellitus with hemoglobin A1c goal of less than 8.0% (FORMERLY [facility])*; Acquired hypothyroidism 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 documented as of this encounter (statuses as of 04/26/2022) Medications Medication Sig Dispensed Refills Start Date End Date Status nystatin (NYSTOP) 543740 UNIT/GM powder Apply topically to affected area 3 times a day. 60 g 1 10/16/2019 Active Dexcom G6 Creative Specialist Device Use as directed. To test blood sugars 4 times a day Dx E11.9 1 Each 0 09/14/2020 Active Dexcom G6 Transmitter Use as directed. To test blood sugars 4 times a day. Change every 90 days. Dx E11.9 1 Each 3 09/14/2020 Active OneTouch Verio In Vitro Strip (Glucose Blood) TESTING once daily 100 Strip 3 10/29/2020 Active OneTouch Delica Plus [id number] TESTING once daily 100 Each 3 10/29/2020 [...] as of this encounter (statuses as of 04/26/2022) Active Problems Problem Noted Date Chronic diastolic [...] as of this encounter (statuses as of 04/26/2022) Resolved Problems Problem Noted Date Resolved Date [...] pain 01/24/2012 01/17/2017 Genetic Sleep Disorder Research Other*[id number] 05/13/2011 04/07/2016 Obstructive sleep apnea 01/18/2011 12/27/19 [...] as of this encounter (statuses as of 04/26/2022) Immunizations Name Administration Dates Next Due COVID-19 [...] this encounter Patient Instructions * Patient Instructions* Alberta Duque PA-C - 04/26/2022 4:19 PM EDT Follow Up: Return in about 4 months (around 08/26/2022) for Diabetes Return. | For: Diabetes Return documented in this encounter Progress Notes * Alberta Duque PA-C - 04/26/2022 4:04 PM EDT After connecting to the patient via telephone, the patient was identified by name and date of . Patient was then informed that this was a telephone call only visit. The patient agreed to participate. Visit Disposition: Routine follow-up Total call duration was 9 minutes. CC: Diabetes Mellitus Type 2 Follow up HPI: This 66 year old female is seen today in the [facility] for routine follow-up of: diabetes mellitus type 2 Current concerns: - most recent A1C was 6.9% - following with [facility] pharmacy in between visits - not able to view download today , Diabetes history: Diagnosed in her early 60's Family history of diabetes: father, and sister Comorbidities cerebral palsy, hypothyroidism, sleep apnea, NG, DLD, HTN At home primary caregiver Last Office Visit: 08/19/2021 (in office), 12/22/2021 (telemedicine) Blood sugar monitoring -Dexcom G6 -unable to view download - morning < 200 , blood sugars at lunch: 200-250 , supper 250s Current Regimen: Novolog, Inject 35 units before breakfast, 39units before lunch, [id number] before supper INCREASE:Lantus pen,50 units daily Metformin ER 500mg daily Trulicity 4.5mg SQ weekly Microvascular complications: Neuropathy:: YES. Followed by podiatry : YES. Current issues with feet:, YES Nephropathy:: NO. Last urine mc below. ACEi/ARB: Denies Retinopathy:: NO. Last eye exam < 1 year. Macrovascular complications: Stroke: NO Heart attack: NO Peripheral arterial disease: YES Risk factors: Hypertension: : NO Hyperlipidemia: : YES Smoking: : NO ASA: : YES ROS: 10 systems reviewed , as per HPI All other were negative. Reviewed PMH , PSH, FH, SH and updated per chart. Labs: Recent Labs Units 01/24/22 0834 08/19/21 1619 06/10/21 1445 HEMOGLOBIN A1C - [facility] % 6.9* 7.1* 7.4* No results for input(s): MICROALBUMIN in the last 25214 hours. Recent Labs Units 12/20/21 1448 12/18/21 0000 09/23/21 1724 09/14/21 1522 11/19/20 2205 09/24/20 1716 09/23/20 1436 08/21/20 1635 SODIUM - [facility] mmol/L 138 -- 143 141 < > 138 -- 142 POTASSIUM - [facility] mmol/L 4.3 -- 3.8 4.8 < > 4.0 -- 4.1 POTASSIUM-OUTSIDE LAB MMOL/L -- 4.3 -- -- < > -- -- -- CALCIUM - [facility] mg/dL 9.1 -- 9.0 9.1 < > 8.7 -- 8.9 BUN - [facility] mg/dL 13 -- 12 19 < > 10 10 12 CREATININE - [facility] mg/dL 0.7 -- 0.8 0.7 < > 0.6 0.6 0.7 CREATININE-OUTSIDE LAB MG/DL -- 0.72 -- -- < > -- -- -- ESTIMATED GLOMERULAR FILTRATION RATE - [facility] -- -- -- -- -- >60.0 >60.0 >60.0 < > = values in this interval not displayed. Recent Labs Units 12/20/21 1448 09/23/21 1724 09/14/21 1522 AST - [facility] U/L 41* 57* 110* ALT - [facility] U/L 25 49* 95* Recent Labs Units 09/14/21 1522 CHOLESTEROL - [facility] mg/dL 101 LDL CHOLESTEROL (CALCULATED) - [facility] mg/dL 46 HDL CHOLESTEROL - [facility] mg/dL 40* TRIGLYCERIDES - [facility] mg/dL 75 Recent Labs Units 06/10/21 1445 04/05/21 1342 02/04/21 0117 TSH - [facility] uIU/mL 0.02* 0.02* 0.17* Assessment and Plan: 66 year old female presents for routine follow up of diabetes. Most recent A1C was 6.9%, however last Dexcom download bloods sugars in the 200-300s. MTM increased lantus to 50 units, now morning blood sugars have been better per .Recocmend increasing meal time dose by 2 units to help with post prandial highs. Recommend updated TSH as in the past have been low. Taking levothyroxine 175 mcg daily. Type 2 diabetes mellitus with hemoglobin A1c goal of less than 8.0% (FORMERLY [facility]) (Primary) - HEMOGLOBIN A1C; Future; Expected date: 05/10/2022 - BASIC METABOLIC PANEL; Future; Expected date: 05/10/2022 - TSH WITH FREE T4 IF INDICATED; Future; Expected date: 05/10/2022 Acquired hypothyroidism - TSH WITH FREE T4 IF INDICATED; Future; Expected date: 05/10/2022 - please get updated labs -INCREASE Novolog, Inject 37 units before breakfast, 41units before lunch, [id number] before supper Lantus pen,50 units daily Metformin ER 500mg daily Trulicity 4.5mg SQ weekly Follow Up: Return in about 4 months (around 08/26/2022) for Diabetes Return. | For: Diabetes Return Supervising physician available during time of appointment. Alberta Novoa Endocr[facility] [address] [facility] [address] Phone: [phone] Fax: [phone] documented in this encounter Plan of Treatment Upcoming Encounters Date Type Specialty Care Team Description 04/28/2022 Office Visit Gastroenterology Lyssa Stout CRNP [address] [place] [address] 04/29/2022 Office Visit Family Medicine Vanita Dunn MD [address] [facility] [place] [address] 05/03/2022 PulmDiagnostic Pulmonary Function [place], P[address] [place] [address] 05/05/2022 Office Visit Cardiology Quyen Canseco CRNP [address] [place] [address] 05/10/2022 [facility] Visit [facility] July Poe RN [address] [place] [address] 05/11/2022 Hem/Onc Treatment Hematology Oncology [place], Chair 9 Hem Onc Scenery [address] [place] [facility] [place] [address] 05/24/2022 Home Visit Family Medicine Kaylee Barakat, Community Health Tacker [employer] [address] [place] [address] 05/30/2022 Office Visit Gynecology Obstetrics Susan Jara MD [address] [place], [place] [phone] 06/01/2022 Office Visit Pharmacy Pharmacist1, [facility] [address] [place] [address] 06/24/2022 Office Visit Sleep Disorders Love Francisco, [address] [place] [address] 07/04/2022 Office Visit Gynecology Obstetrics Concetta Khan MD [address] [place], [place] [phone] 09/14/2022 PulmDiagnostic Pulmonary Function [place], [address] [facility] [place] [address] 09/28/2022 Office Visit Pulmonary Reynaldo Marquez MD [address] [place] [phone] 10/26/2022 Office Visit Hematology Oncology Tono Sanchez MD [address] [facility] [place] [address] Scheduled Orders Name Type Priority Associated Diagnoses Orde r Schedule HEMOGLOBIN A1C Lab Routine Type 2 diabetes mellitus with hemoglobin A1c goal of less than 8.0% (HCC) Expected: 05/10/2022, Expires: 04/26/2023 BASIC METABOLIC PANEL Lab Routine Type 2 diabetes mellitus with hemoglobin A1c goal of less than 8.0% (HCC) Expected: 05/10/2022, Expires: 04/26/2023 TSH WITH FREE T4 IF INDICATED Lab Routine Type 2 diabetes mellitus with hemoglobin A1c goal of less than 8.0% (HCC) Acquired hypothyroidism Expected: 05/10/2022, Expires: 04/26/2023 Scheduled Procedures Name Priority Associated Diagnoses Date/Ti [...] of this encounter Implants Implanted Type Area Commutator Operator Device Identifier Shelf Expiration Date Model / Serial / Lot Microtech Sure Clip Implanted:Qty: 2 on 06/03/2020 by Janis Hatch DO at OR [facility] Clip N/A: Colon 04/21/2022 [facility]-F-26-2 35-C-R / / [id number] documented as of this encounter Visit Diagnoses Diagnosis Type 2 diabetes mellitus with hemoglobin A1c goal of less than 8.0% (HCC)- Primary Acquired hypothyroidism Unspecified hypothyroidism documented in this encounter Advance Directives Documents on File Type Date Recorded Patient Center Director Lead Teacher 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 WILL AND HEALTH CARE POA Power of Cosmetic Sales Consultant 04/29/2021 12:00 AM TOM R OF [employer] C[employer] POA Advanced Directive 04/01/2021 1:14 [...] Bustos Spouse Emergency Contact Care Teams Dry Goods Clerk Relationship Specialty Start Date End Date Vanita Dunn MD [address] [place] [address] PCP - General Family Medicine 03/16/21 documented as of this encounter"
--- OUTSIDE RECORDS SUMMARY | 2023-05-10 18:34 | External Medical Summary ---
Author Name Unknown Address Unknown Organization K0G:[facility] [address] - [address] [place] [address] Laboratory Report Ordering Provider Test Date Status DESMOND GUSMANN 04/28/2022 14:21:09 Final Observation Date Value Abnormality Reference (Units ) Status PT 04/28/2022 14:21:09 16.2 Above high normal 11 .5-14.6 (seconds) Final INR 04/28/2022 14:21:09 1.28 Above high normal 0. 84-1.14 Final Performing Location [facility] [address] - [address] [place] [address]
--- OUTSIDE RECORDS SUMMARY | 2023-05-10 18:34 | External Medical Summary ---
Author Name Unknown Address Unknown Organization K01:LAB[facility]ATORY [facility] - [address] [place] [address] Laboratory Report Ordering Provider Test Date Status ODESSA GUSMAN 04/28/2022 14:21:09 Final Observation Date Value Abnormality Reference (Units ) Status Alpha-Fetoprotein 04/28/2022 14:21:09 5.1 0. 0-8.3 (ng/mL) Final Performing Location LABORATORY C - [address] [place] [address]
--- OUTSIDE RECORDS SUMMARY | 2023-05-10 18:34 | External Medical Summary | Summary of Care ---
Author Name Unknown Organization [facility] Address [place] [address] Care Team Providers Care File Machine Operator Name Role Phone Vanita Dunn MD Primary Care Provid er Reason for Visit * Reason Comments Follow Up Cirrhosis, ALEC Encounter Details Date Type Department Care Team Description 04/28/2022 Office Visit Gastroenterology, [facility] [address] [facility] [place] [address] Lyssa Stout CRNP [address] [facility] [place] [address] Cirrhosis of liver without ascites, unspecified hepatic cirrhosis type (HCC)* 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 documented as of this encounter (statuses as of 04/28/2022) Medications Medication Sig Dispensed Refills Start Date End Date Status nystatin (NYSTOP) 131422 UNIT/GM powder Apply topically to affected area 3 times a day. 60 g 1 10/16/2019 Active Dexcom G6 Cold Meat Cook Device Use as directed. To test blood sugars 4 times a day Dx E11.9 1 Each 0 09/14/2020 Active Dexcom G6 Transmitter Use as directed. To test blood sugars 4 times a day. Change every 90 days. Dx E11.9 1 Each 3 09/14/2020 Active OneTouch Verio In Vitro Strip (Glucose Blood) TESTING once daily 100 Strip 3 10/29/2020 Active OneTouch Delica Plus [id number] TESTING once daily 100 Each 3 10/29/2020 [...] pain 01/24/2012 01/17/2017 Genetic Sleep Disorder Research Other*[id number] 05/13/2011 04/07/2016 Obstructive sleep apnea 01/18/2011 12/27/19 [...] Sign Reading Time Taken Comments Blood Pressure 112/70 04/28/2022 1:16 PM EDT Pulse 72 04/28/2022 1:16 PM EDT Temperature 36.6 C (97.9 F) 04/28/2022 1:16 PM ED T Respiratory Rate 18 04/28/2022 1:16 PM EDT Oxygen Saturation - - Inhaled [...] encounter Progress Notes * ZAK Bolton - 04/28/2022 1:34 PM EDT DATE OF SERVICE: 04/28/22 REFERRING PHYSICIAN: Rajwinder Carter DO CC: F/U NG cirrhosis HPI: 04/28/22: Patient report that she occasionally gets [...] or dark tarry stools 05/11/2021 (seen by [facility] Hepatology, Dr. 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 She was recently admitted to [facility] 03/07/21-03/11/21 with chest/epigastric pain. She was noted [...] Anemia Anxiety and depression Arthritis Cerebral palsy ([facility]) 01/24/2012 Chronic constipation Chronic diastolic (congestive) heart failure ([facility]) 09/13/2021 Chronic hypoxemic respiratory failure ([facility]) 04/08/2019 Chronic pain 03/27/2012 Cirrhosis of liver ([facility]) 11/20/2017 DDD (degenerative disc disease), lumbar DM [...] less than 8.0% ([facility]) 09/26/2013 ICD-10 update of inactive term Family History Problem Relation Age of Onset Heart Disorder Father of [place] at age 61 Diabetes Father Heart Disorder Mother of [place] age 72 Heart Disorder Sister Mi at age 46 Hypertension Sister Cancer No significant family history Arthritis No significant family history Mental Disorder No significant family history Stroke No significant family history Past Surgical History: Procedure Laterality Date BONE DEBRIDEMENT, FIRST 20 CM2 Right 04/16/2020 DEBRIDEMENT SKIN SUBCUTANEOUS TISSUE MUSCLE AND BONE performed by Josh Vazquez MD at OR [facility] DELIVERY 04/20/1982 COLONOSCOPY 04/21/2009 repeat in 10 years COLONOSCOPY, DIAGNOSTIC (RECTUM) 10/04/2016 normal bx, repeat 10 yrs/[facility] COLONOSCOPY, DIAGNOSTIC (RECTUM) N/A 06/03/2020 internal hemorrhoids/biopsies show adenomatous polyps/recall 5 years/COLONOSCOPY FLEXIBLE PROXIMAL DIAGNOSTIC performed by Janis Hatch DO at OR [facility] COLONOSCOPY, DIAGNOSTIC (RECTUM) 03/17/2020 poor [...] formed by Janis Hatch DO at OR [facility] EGD, FLEXIBLE, DIAGNOSTIC 11/27/2019 eso varices, portal hypertensive gastropathy, gastritis / [facility] EGD, FLEXIBLE, DIAGNOSTIC N/A 08/05/2020 large amount of food in stomach/repeat 1.5 years/ESOPHAGOGASTRODUODENOSCOPY (EGD), FLEXIBLE, TRANSORAL, DIAGNOSTIC performed by Janis Hatch DO at OR [facility] EGD, FLEXIBLE, DIAGNOSTIC N/A 03/10/2021 ESOPHAGOGASTRODUODENOSCOPY (EGD), FLEXIBLE, TRANSORAL, DIAGNOSTIC performed by Kris Blankenship MD at ENDOSCOPY [facility] HYSTEROSCOPY W/BIOPSY AND/OR POLYPECTOMY W/WO D&C N/A 12/27/2021 HYSTEROSCOPY WITH BIOPSY AND/OR POLYPECTOMY WITH OR WITHOUT D&C performed by Concetta Khan MD at OR [facility] HYSTEROSCOPY W/BIOPSY AND/OR POLYPECTOMY W/WO D&C N/A 02/14/2022 HYSTEROSCOPY WITH BIOPSY AND/OR POLYPECTOMY WITH OR WITHOUT D&C performed by Concetta Khan MD at OR [facility] INSERT INTRAUTERINE DEVICE (IUD) N/A 02/14/2022 INSERTION OF INTRAUTERINE DEVICE performed by Concetta Khan MD at OR [facility] IR VENOUS ACCESS MEDIPORT 10/05/2020 PELVIS/HIP JOINT SURGERY NEC teenager aid in walking REMOVE CERVIX CONE W/LOOP ELECTRODE N/A 12/27/2021 LOOP ELECTROSURGERY EXCISION PROCEDURE performed by Concetta Khan MD at OR [facility] REPAIR/GRAFT ACHILLES TENDON age 40 aid in walking Social History Tobacco Use Smoking status: Never Smoker Smokeless tobacco: Never Used Vaping Use Vaping Use: Never used Substance Use Topics Alcohol use: Not Currently Comment: rare Drug use: No Comment: too much soda Review of patient's allergies indicates: Allergen Reactions Adhesive Tape Itching Pcn [Penicillins] Rash Perflutren Protein A Microsph Definity-lower back pain Current Outpatient Medications Medication Sig Dispense Refill nystatin (NYSTOP) 791092 UNIT/GM powder Apply topically to affected area 3 times a day. 60 g 1 Dexcom G6 Cold Meat Cook Device Use as directed. To test blood sugars 4 times a day Dx E11.9 1 Each 0 Dexcom G6 Transmitter Use as directed. To test blood sugars 4 times a day. Change every 90 days. Dx E11.9 1 Each 3 OneTouch Verio In Vitro Strip (Glucose Blood) TESTING once daily 100 Strip 3 OneTouch Delica Plus [id number] TESTING once daily 100 Each 3 BiPAP every night at bedtime. MEDICAL INSTRUCTIONS [...] as needed for Cough. 30 Capsule 1 Dexcom G6 Sensor use as directed [...] night at bedtime . 45 mL 3 Nitroglycerin 0.4 MG Sublingual Tablet Sublingual (Nitrostat) Place 1 Tab under the tongue every 5 minutes as needed for Pain, Chest. up to 3 doses in 15 minutes 25 Tab 11 Budesonide-Formoterol Fumarate 160-4.5 MCG/ACT Inhalation Aerosol (Symbicort) Inhale by mouth 2Puffs 2 times a day . 10.2 g 1 Current Facility-Administered Medications Medication Dose Route Frequency Provider Last Rate Last Admin Albuterol Sulfate (Proventil) (2.5 MG/3ML) 0.083% inhalation solution 2.5 mg 2.5 mg Nebulizer PRN William Morales PA-C Albuterol Sulfate (Proventil) (5 MG/ML) 0.5% *conc* inhalation solution 2.5 mg 2.5 mg NebulizerPRN William Morales PA-C REVIEW OF SYSTEMS: See HPI above; All other findings negative. EXAM: Filed Vitals: 04/28/22 1316 BP: 112/70 Pulse: 72 Resp: 18 Temp: 36.6 C (97.9 F) TempSrc: Infrared GENERAL: Well developed and well nourished in [...] palpation EXTREMITIES: No palmar erythema, + generalized ankle edema, no skin discoloration, no clubbing, no cyanosis. NEURO: Pt has CP, wheelchair dependent. ASSESSMENT AND PLAN: Shaina Bustos is a 66 year old female w NALFD Cirrhosis, varices, anemia, constipation. MELD 9 - Continue Protonix to 40mg daily given indigestion, GERD control, Carafate slurry. - Obtain MELD labs q3-6months. - Last EGD 07/2020. She is on Nadolol 40mg daily, goal HR 55-65 - Last Colonoscopy: 05/2020, recall 5 yrs for hx of TA polyps - Hep A immunity: completed series - Hep B immunity: completed series - HCC screening [id number]: AFP and repeat RUQ u/s - Encouraged to abstain from ETOH, illicit [...] for their visit today. RETURN TO CLINIC: 4 months or sooner Esteban Grayson [facility] Gastroenterology, [facility] documented in this encounter Nursing Notes * Cecil Padilla RN - 04/28/2022 1:19 PM EDT Patient identified by full name and date of Chief Complaint Patient presents with Follow Up Cirrhosis, ALEC documented in this encounter Plan of Treatment Upcoming Encounters Date Type Specialty Care Team Description 04/29/2022 Office Visit Family Medicine [facility]ita Dunn [facility] [address] [facility] [address] 05/03/2022 PulmDiagnostic Pulmonary Function [place], [address] [facility] [place] [address] 05/04/2022 Imaging Radiology 05/05/2022 Office Visit Cardiology Quyen Canseco CRNP [address] [place] [address] 05/10/2022 Home Visit [facility] July Poe, RN [address] [place] [address] 05/11/2022 Hem/Onc Treatment Hematology Oncology [place], Chair 9 Hem Onc [facility] [address] [facility] [place] [address] 05/24/2022 Home Visit Family Medicine Kaylee Barakat, Community Health Sample Room Supervisor [address] [place] [address] 05/30/2022 Office Visit Gynecology Obstetrics Susan Jara MD [address] [place] [address] 06/01/2022 Office Visit Pharmacy Pharmacist1, [facility] [address] [place] [address] 06/24/2022 Office Visit Sleep Disorders Love Francisco DO [address] [place] [address] 07/04/2022 Office Visit Gynecology Obstetrics Concetta Khan MD [address] [place] [place] [address] 08/30/2022 Office Visit Gastroenterology Lyssa Stout CRNP [address] [place] [address] 09/14/2022 PulmDiagnostic Pulmonary Function [place], [address] [place] [address] 09/28/2022 Office Visit Pulmonary Reynaldo Marquez MD [address] [place] [address] 10/26/2022 Office Visit Hematology Oncology Tono Sanchez MD [address] [place], [place] [phone] Scheduled Orders Name Type Priority Associated Diagnoses Orde r Schedule HEPATIC FUNCTION PANEL Lab Routine Cirrhosis of liver without ascites, unspecified hepatic cirrhosis type (HCC) Ordered: 04/28/2022 PT INR Lab Routine Cirrhosis of liver without ascites, unspecified hepatic cirrhosis type (HCC) Ordered: 04/28/2022 ALPHA-FETOPROTEIN TUMOR MARKER Lab Routine Cirrhosis of liver without ascites, unspecified hepatic cirrhosis type (HCC) Ordered: 04/28/2022 US ABDOMEN LIMITED Medical Imaging Routine Cirrhosis of liver without ascites, unspecified hepatic cirrhosis type (HCC) Ordered: 04/28/2022 Scheduled Procedures Name Priority Associated Diagnoses Date/Ti [...] of this encounter Implants Implanted Type Area Store Stock Help Device Identifier Shelf Expiration Date Model / Serial / Lot Microtech Sure Clip Implanted:Qty: 2 on 06/03/2020 by Janis Hatch DO at OR [facility] Clip N/A: Colon 04/21/2022 [facility]-F-26-2 35-C-R / / [id number] documented as of this encounter Visit Diagnoses Diagnosis Cirrhosis of liver without ascites, unspecified hepatic cirrhosis type (HCC)- Primary documented in this encounter Advance Directives Documents on File Type Date Recorded 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
--- OUTSIDE RECORDS SUMMARY | 2023-05-10 18:34 | External Medical Summary ---
Author Name Unknown Address Unknown Organization K0G:LAB[facility]ATORY [place] [address] - [address] [place] [address] Laboratory Report Ordering Provider Test Date Status ODESSA GUSMAN 04/28/2022 14:21:09 Final Observation Date Value Abnormality Reference (Units ) Status Albumin 04/28/2022 14:21:09 3.4 Below low normal 3.8-5.0 (g/dL) Final AST (Aspartate aminotransferase) 04/28/2022 14:21:09 51 Above high normal 10-35 (U/L) Final Alk Phos 04/28/2022 14:21:09 127 35-130 (U/L) Final ALT (Alanine aminotransferase) 04/28/2022 14:21:09 30 10-35 (U/L) Final Bilirubin, Total 04/28/2022 14:21:09 1.4 Above high normal <=1.2 (mg/dL) Final Bilirubin, Direct 04/28/2022 14:21:09 0.6 Above high normal 0.0-0.3 (mg/dL) Final Protein 04/28/2022 14:21:09 6.5 6.0-8.3 (g/dL) Final Performing Location LABORATORY [place] [address] [place] [address]
--- OUTSIDE RECORDS SUMMARY | 2023-05-10 18:35 | External Medical Summary | Summary of Care ---
Author Name Unknown Organization [place] [address] Care Team Providers Care Arranging Funeral Director Name Role Phone Vanita Dunn MD Primary Care Provid er Reason for Visit * Reason Comments IV Therapy Venofer Encounter Details Date Type Department Care Team Description 04/20/2022 Hem/Onc Treatment Hematology/Oncolog y Treatment, [place] [address] [place] [address] Mary[place], Chair 3 Hem Onc [place] [address] [facility] [place] [address] Thrombocytopenia (HCC)*; Iron deficiency anemia due to chronic blood loss 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 60 g 1 10/16/2019 Active Dexcom G6 Refrigeration Operator Device Use as directed. To test blood sugars 4 times a day Dx E11.9 1 Each 0 09/14/2020 Active Dexcom G6 Transmitter Use as directed. To test blood sugars 4 times a day. Change every 90 days. 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 Possible barriers to meeting goals: ambulating with IV pole if needed, use of motor scooter to ambulate, pt does not walk Stability of the patient: Moderately unstable - medium risk of patient condition declining or worsening Summary regarding today's goals: Met: Patient remained free of harm today Patient tolerated treatment well without any acute issues or problems. Patient left facility in stable condition and denied any further needs. * Shelli Barakat RN - 04/20/2022 3:32 PM EDT Chair 12. Port accessed and labs drawn from port. Safety and Risk for Injury Patient will remain free from injury. Ensure appropriate safety devices are available. Provide and maintain safe environment. documented in this encounter Plan of Treatment Upcoming Encounters Date Type Specialty Care Team Description 04/26/2022 Telemedicine Endocrinology Alberta Duque PA-C [address] [place] [address] 04/28/2022 Office Visit Gastroenterology Lyssa Stout CRNP [address] [facility] [place] [address] 04/29/2022 Office Visit Family Medicine Vanita Dunn MD [address] [place] [address] 05/03/2022 PulmDiagnostic Pulmonary Function [place], Pft [address] [facility] [place] [address] 05/05/2022 Office Visit Cardiology Quyen Canseco CRNP [address] [facility] [place] [address] 05/10/2022 Home Visit [facility] July Poe RN [address] [facility] [place] [address] 05/11/2022 Hem/Onc Treatment Hematology Oncology [place], Chair 9 Hem Onc [facility] [address] [facility], [place] [address] 05/24/2022 Home Visit Family Medicine Kaylee Barakat, Community [facility] Certified Nurse Practitioner [address] [place] [address] 05/30/2022 Office Visit Gynecology Obstetrics Susan Jara MD [address] [place] [address] [place] [address] 06/01/2022 Office Visit Pharmacy Pharmacist1, [facility] [address] [place] [address] 06/24/2022 Office Visit Sleep Disorders Love Francisco DO [address] [facility] [place] [address] 07/04/2022 Office Visit Gynecology Obstetrics Concetta Khan MD [address] [place] [id number] 09/14/2022 PulmDiagnostic Pulmonary Function [place], Pft [address] [place] [address] 09/28/2022 Office Visit Pulmonary Reynaldo Marquez MD [address] [place] [address] 10/26/2022 Office Visit Hematology Oncology Tono Sanchez MD [address] [place] [address] Pending Results Name Type Priority Associated Diagnoses Date /Time FERRITIN Lab Routine Iron deficiency anemia due to chronic blood loss 04/20/2022 2:37 PM EDT IRON SCREEN, INCLUDING TIBC Lab Routine Iron deficiency anemia due to chronic blood loss 04/20/2022 2:37 PM EDT Scheduled Orders Name Type Priority Associated Diagnoses Orde r Schedule FERRITIN Lab Routine Iron deficiency anemia due to chronic blood loss Expected: 04/20/2022, Expires: 04/20/2023 IRON SCREEN, INCLUDING TIBC Lab Routine Iron deficiency anemia due to chronic blood loss Expected: 04/20/2022, Expires: 04/20/2023 Scheduled Procedures Name Priority Associated Diagnoses Date/Ti [...] 12/20/2022 12/20/2021, 12/18/2021, 09/23/2021, Additional history exists DIABETES-URINE ALBUMIN/CREATININE EVERY 12 MONTHS 03/30/2023 03/30/2022, 01/11/2019, 02/03/2017, Additional history exists Mammogram 09/09/2023 09/09/2021, [...] of this encounter Implants Implanted Type Area Digitizer Device Identifier Shelf Expiration Date Model / Serial / Lot [employer] Sure Clip Implanted:Qty: 2 on 06/03/2020 by Jansi Hatch DO at OR [facility] Clip N/A: Colon 04/21/2022 [facility]-F-[id number] 35-C-R / / [id number] documented as of this encounter Procedures Procedure Name Priority Date/Time Associated Diagnosis Comments DIFFERENTIAL, AUTOMATED STAT 04/20/2022 2:37 PM EDT Thrombocytopenia (HCC) CBC WITH WBC DIFFERENTIAL STAT 04/20/2022 2:37 PM EDT Thrombocytopenia (HCC) CBC STAT 04/20/2022 2:37 PM EDT Thrombocytopenia (HCC) DIFFERENTIAL, TECHNOLOGIST REVIEW Routine 04/20/2022 2:37 PM EDT Thrombocytopenia (HCC) documented in this encounter Results * (ABNORMAL) DIFFERENTIAL, TECHNOLOGIST REVIEW (04/20/2022 2:37 PM EDT) nRBCs LAB[facility]ATORY [facility] 56- Anisocytosis Slight(A) None Seen [facility] 56-02 Elliptocytes Few(A) None Seen [facility] 56-02 Macrocytosis Present(A) None Seen [facility]ATORY [facility] 56-02 Tear Drop Cells Few(A) None Seen [facility]ATORY [facility] 56- Specimen Blood - Venous blood specime n (specimen) LABORATORY [place] 56-[address] [place] [address] * (ABNORMAL) DIFFERENTIAL, AUTOMATED (04/20/2022 2:37 PM EDT) WBC 3.71(L) 4.00 - 10.80 K/uL LABORATORY [place] 56-02 Neutrophils % 59.6 40.0 - 75.0 % LABORATORY [facility] 56-02 Lymphocytes % 18.3 18.0 - 42.0 % LAB[facility]ATORY [facility] 56-02 Monocytes % 12.9(H) 1.0 - 11.0 % LAB[facility]ATORY [facility] 56-02 Eosinophils % 8.1(H) 0.0 - 6.0 % LABORATORY [place] [address] Basophils % 1.1 0.0 - 2.0 % LABORATORY [place] [address] Absolute Neutrophils 2.21 1.80 - 7.70 K/uL [place] [address] Absolute Lymphocytes 0.68(L) 1.00 - 4.80 K/ul [place] [address] Absolute Monocytes 0.48 0.00 - 1.10 K/uL [place] [address] Absolute Eosinophils 0.30 0.00 - 0.70 K/uL [place] [address] Absolute Basophils 0.04 0.00 - 0.20 K/uL [address] Specimen Blood - Venous blood specime n (specimen) [address] [place] [address] * (ABNORMAL) CBC (04/20/2022 2:37 PM EDT) [facility] WBC 3.71(L) 4.00 - 10.80 K/uL [place] [address] RBC 3.07 3.85 - 5.15 M/uL [place] [address] HGB 11.2(L) 12.0 - 15.3 g/dL [address] HCT 34.3(L) 36.0 - 45.2 % [address] MCV 111.7 81.5 - 97.5 fL LABORATORY [address] MCH 36.5 27.0 - 34.[address] MCHC 32.7 32.0 - 36.0 g/dL [address] RDW 18.3 11.5 - 15.5 % [address] PLT 72(L) 140 - 400 K/uL [address] MPV 12.9 6.6 - 11.[address] Specimen Blood - Venous blood specime n (specimen) Performing Organization Address [facility]/ZIP Co de Phone Number [place] [address] [address] [place] [address] documented in this encounter Visit Diagnoses Diagnosis Thrombocytopenia (HCC)- Primary Thrombocytopenia, unspecified 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 (chronic) documented in this encounter Administered Medications Active Administered Medications - up to 3 most recent administrations Medication Order MAR Action Action Date Dose Rate Site diphenhydrAMINE (Benadryl) inj 50 mg 50 mg, IV Push, ONCE PRN Other, Hypersensitivity Reaction, Starting on Mon04/20/22 at 1440, Until [place] 04/21/22 at 1439, For 24 hours EPINEPHrine 1 MG/ML inj 0.3 mg 0.3 mg, Intramuscular, ONCE PRN Other, Hypersensitivity Reaction or Anaphylaxis, Starting on Mon04/20/22 at 1440, Until [place] 04/21/22 at 1439, For 24 hours hEParin 100 UNIT/ML Lock Flush inj 500 Units 500 Units (5 mL), IV Lock, PRN Other, IV Flush, Starting on Mon04/20/22 at 1440, Until [place] 04/21/22 at 1439, For 24 hours, Do not flush if lock, PICC, or central line not in place; IV infusing or unable to flush. Given 04/20/2022 4:23 PM EDT 500 Units Hydrocortisone Na Succinate PF (Solu-Cortef) inj 100 mg 100 mg, IV Push, ONCE PRN Other, Hypersensitivity Reaction, Starting on Mon04/20/22 at 1440, Until [place] 04/21/22 at 1439, For 24 hours NSS infusion 500 mL, Intravenous, at 50 mL/hr, CONTINUOUS, Starting on Mon04/20/22 at 1545, Until Mon04/21/22 at 0144 Start Infusion 04/20/2022 2:40 PM EDT 500 mL 50 mL/hr sodium chloride 0.9 % flush/inj 10 mL 10 mL, IV Push, PRN Other, IV Flush, Starting on Mon04/20/22 at 1440, Until [place] 04/21/22 at 1439, For 24 hours, Do not flush if lock, PICC, or central line not in place; IV infusing or unable to flush. Given 04/20/2022 4:23 PM EDT 10 mL Inactive Administered Medications - up to 3 most recent administrations Medication Order MAR Action Action Date Dose Rate Site Iron Sucrose (Venofer) 300 mg in NSS 250 mL ivpb 300 mg, IV Piggyback, ONCE, 1 dose, On 04/20/22 at 1615, Administer over 90 Minutes Start Infusion 04/20/2022 2:46 PM EDT 300 mg 166.67 mL/hr documented in this encounter Advance Directives Documents on File Type Date Recorded Patient Public Health Dietitian 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 WILL LIVING WILL AND HEALTH CARE POA Dale IndexTankElevator Runner 04/29/2021 12:00 AM TOM R COUNTS INCLUDE 234 BEDS AT THE [facility] POA Advanced Directive 04/01/2021 1:14 [...] Agents on File Name Relationship Healthcare Agent [facility] p Communication Syed Bustos Spouse Emergency Contact Care Teams Arranging Funeral Director Relationship Specialty Start Date End Date Vanita Dunn MD [address] [place], [place] [id number] PCP - General Family Medicine 03/16/21 documented as of this encounter
--- OUTSIDE RECORDS SUMMARY | 2023-05-10 18:36 | External Medical Summary | Summary of Care ---
Author Name Unknown Organization [place] [address] Care Team Providers Care Telecasting Technician Name Role Phone Vanita Dunn MD Primary Care Provid er Reason for Visit * Reason Comments Follow Up Encounter Details Date Type Department Care Team Description 04/20/2022 Office Visit Hematology/Oncology [address] [address] Tono Sanchez MD [address] [place] [address] Iron deficiency anemia due to chronic blood loss*; Splenomegaly 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 documented as of this encounter (statuses as of 04/20/2022) Medications Medication Sig Dispensed Refills Start Date End Date Status nystatin (NYSTOP) 779948 UNIT/GM powder Apply topically to affected area 3 times a day. 60 g 1 10/16/2019 Active Dexcom G6 Induction Heating Equipment Setter Device Use as directed. To test blood sugars 4 times a day Dx E11.9 1 Each 0 09/14/2020 Active Dexcom G6 Transmitter Use as directed. To test blood sugars 4 times a day. Change every 90 days. Dx E11.9 1 Each 3 09/14/2020 Active OneTouch Verio In Vitro Strip (Glucose Blood) TESTING once daily 100 Strip 3 10/29/2020 Active OneTouch Delica Plus [id number] TESTING once daily 100 Each 3 10/29/2020 [...] before supper 120 mL 3 04/06/2022 Active Lantus SoloStar 100 UNIT/ML Subcutaneous Solution Pen-injectorIndicatio ns:Type 2 diabetes mellitus with hemoglobin A1c goal of less than 8.0% (HCC) Inject under the skin 42 Units every night at bedtime . Increase to 45 units at bedtime if BG greater than 180 after 1 week. 45 mL 3 04/06/2022 Active Oxybutynin Chloride 5 MG Oral Tablet (Ditropan) TAKE 1 TABLET BY MOUTH TWICE DAILY 180 Tablet 1 04/10/2022 Active documented as of this encounter (statuses [...] pain 01/24/2012 01/17/2017 Genetic Sleep Disorder Research Other*[id number] 05/13/2011 04/07/2016 Obstructive sleep apnea 01/18/2011 12/27/19 [...] Sign Reading Time Taken Comments Blood Pressure 142/70 04/20/2022 1:46 PM EDT Pulse 64 04/20/2022 1:46 PM EDT Temperature 36.2 C (97.2 F) 04/20/2022 1:46 PM ED T Respiratory Rate 18 04/20/2022 1:46 PM EDT Oxygen Saturation 94% 04/20/2022 1:46 PM EDT Inhaled Oxygen Concentration - - [...] as of this encounter Progress Notes * Tono Sanchez MD - 04/20/2022 1:45 PM EDT Hematology/Oncology Outpatient Clinic note [facility] [address] [place] [address] Name: Shaina Bustos Date: 01/12/2022 CHIEF COMPLAINT: Shaina Bustos is a 66 year old female patient here today for f/u visit. DIAGNOSIS: -pancytopenia related to underlying cirrhosis of liver and splenomegaly -iron deficiency anemia. Vaginal bleeding. Recently she had trell IUD placement DIAGNOSTIC WORKUP: She is referred to hematology for evaluation of the anemia. Dr. Sanchez has reviewed her medical records. He also reviewed her medical records from [facility]. She has underlying cirrhosis of liver, has evidence of iron deficiency for the last 1 year, Ferritin level was less than 10 earlier in December 2018, she was on oral iron replacement therapy once a day,lately increase to twice a day. She was admitted at [facility] in November 2019, she received 1 to [...] Hysteroscopy, w/ bx, and polypectomy on 12/27/2021 CURRENT TREATMENT: 10/08/21 Venofer 300mg IV every 3 weeks, no end date at this time PREVIOUS TREATMENT: -IV iron the form of Ferric Derisomaltose (Monoferric) on 04/14/2021. (1000 mg). Pathology results 12/27/2021: Endocervix, curettage: -- Inflamed mucus and scant endocervical tissue, negative for dysplasia. B. Endometrium, curettage: -- Scant atrophic fragments of endometrial and cervical tissue. -- Negative for dysplasia, hyperplasia, and neoplasia. Clinical History HISTORY OF PRESENT ILLNESS: She has come the clinic for the follow-up, accompanied by her in the office. She came to clinic in the wheelchair, still having ongoing intermittent vaginal bleeding, earlier she was seen by key account director, had a biopsy, benign findings noted, Mirena IUD was placed, no blood in the stool, no cardiac or pulmonary symptoms, no fever, chronic leg swelling present, she had a Doppler evaluation in December 2021, no evidence of DVT noted. She is not on any anticoagulant treatment. No fever, no recent hospitalization, no recent blood transfusion. Presently she is receiving IV iron the form Venofer every 3 weekly. Next Past Medical History: Diagnosis Date Anemia Anxiety and depression Arthritis Cerebral palsy (HCC) 01/24/2012 Chronic constipation Chronic diastolic (congestive) heart failure (HCC) 09/13/2021 Chronic hypoxemic respiratory failure (HCC) 04/08/2019 Chronic pain 03/27/2012 Cirrhosis of liver ([facility]) 11/20/2017 DDD (degenerative disc disease), lumbar DM [...] of less than 8.0% ([facility]) 09/26/2013 ICD-10 update of inactive term Social History Socioeconomic History Marital status: Spouse name: Syed Em" Number of children: 1 Years of education: Not on file Highest education level: Not on file Occupational History Not on file Tobacco Use Smoking status: Never Smoker Smokeless tobacco: Never Used Vaping Use Vaping Use: Never used Substance and Sexual Activity Alcohol use: Not Currently Comment: rare Drug use: No Comment: too much soda Sexual activity: Not Currently Partners: Male Other Topics Concern Not on file Social History Narrative 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 49 education: 12 service: no hobbies/interests: reading transfusions: no exercise: no diet: no adventism/yazidi: Raised mu-ism marital status: 2nd time 11/15 children: 1 gc: 0/15 for 2nd ggc: 0 pets: Dog, lots of cats exposure to violence/threats/abuse: no things to improve: no Social Determinants of Health Financial Resource Strain: Not on file Food Insecurity: Not on file Transportation Needs: Not on file Physical Activity: Not on file Stress: Not on file Social Connections: Not on file Intimate Partner Violence: Not on file Housing Stability: Not on file Past Surgical History: Procedure Laterality Date BONE DEBRIDEMENT, FIRST 20 CM2 Right 04/16/2020 DEBRIDEMENT SKIN SUBCUTANEOUS TISSUE MUSCLE AND BONE performed by Josh Vazquez MD at [facility] DELIVERY 04/20/1982 COLONOSCOPY 04/21/2009 repeat in 10 years COLONOSCOPY, DIAGNOSTIC (RECTUM) 10/04/2016 normal bx, repeat 10 yrs/[facility] COLONOSCOPY, DIAGNOSTIC (RECTUM) N/A 06/03/2020 internal hemorrhoids/biopsies show adenomatous polyps/recall 5 years/COLONOSCOPY FLEXIBLE PROXIMAL DIAGNOSTIC performed by Janis Hatch DO at OR [facility] COLONOSCOPY, DIAGNOSTIC (RECTUM) 03/17/2020 poor prep / [facility] DENTAL SURGERY PROCEDURE NEC wisdom teeth x 4 DILATION AND CURETTAGE (D&C) EGD, FLEXIBLE, DIAGNOSTIC 10/04/2016 gastritis/[facility] EGD, FLEXIBLE, DIAGNOSTIC 01/11/2018 eso varices, retained food, repeat 1 yr/[facility] EGD, FLEXIBLE, DIAGNOSTIC N/A 06/03/2020 severe erosive esophagitis/non-bleeding grade II esophageal varices/gastritis/biopsies show inflammatory changes/repeat 3-4 months/ESOPHAGOGASTRODUODENOSCOPY (EGD), FLEXIBLE, TRANSORAL, DIAGNOSTIC per formed by Janis Hatch DO at OR [facility] EGD, FLEXIBLE, DIAGNOSTIC 11/27/2019 eso varices, portal hypertensive gastropathy, gastritis / [facility] EGD, FLEXIBLE, DIAGNOSTIC N/A 08/05/2020 large amount of food in stomach/repeat 1.5 years/ESOPHAGOGASTRODUODENOSCOPY (EGD), FLEXIBLE, TRANSORAL, DIAGNOSTIC performed by Janis Hatch DO at OR [facility] EGD, FLEXIBLE, DIAGNOSTIC N/A 03/10/2021 ESOPHAGOGASTRODUODENOSCOPY (EGD), FLEXIBLE, TRANSORAL, DIAGNOSTIC performed by Kris Blankenship MD at ENDOSCOPY [facility] HYSTEROSCOPY W/BIOPSY AND/OR POLYPECTOMY W/WO D&C N/A 12/27/2021 HYSTEROSCOPY WITH BIOPSY AND/OR POLYPECTOMY WITH OR WITHOUT D&C performed by Concetta Khan MD at OR [facility] HYSTEROSCOPY W/BIOPSY AND/OR POLYPECTOMY W/WO D&C N/A 02/14/2022 HYSTEROSCOPY WITH BIOPSY AND/OR POLYPECTOMY WITH OR WITHOUT D&C performed by Concetta Khan MD at OR [facility] INSERT INTRAUTERINE DEVICE (IUD) N/A 02/14/2022 INSERTION OF INTRAUTERINE DEVICE performed by Concetta Khan MD at OR [facility] IR VENOUS ACCESS MEDIPORT 10/05/2020 PELVIS/HIP JOINT SURGERY NEC teenager aid in walking REMOVE CERVIX CONE W/LOOP ELECTRODE N/A 12/27/2021 LOOP ELECTROSURGERY EXCISION PROCEDURE performed by Concetta Khan MD at OR [facility] REPAIR/GRAFT ACHILLES TENDON age 40 aid in walking Family History Problem Relation Age of Onset Heart Disorder Father of [place] at age 61 Diabetes Father Heart Disorder Mother of [place] age 72 Heart Disorder Sister Mi at age 46 Hypertension Sister Cancer No significant family history Arthritis No significant family history Mental Disorder No significant family history Stroke No significant family history Review of patient's allergies indicates: Allergen Reactions Adhesive Tape Itching Pcn [Penicillins] Rash Perflutren Protein A Microsph Definity-lower back pain Current Outpatient Medications Medication Sig Dispense Refill nystatin (NYSTOP) 739389 UNIT/GM powder Apply topically to affected area 3 times a day. 60 g 1 Dexcom G6 Induction Heating Equipment Setter Device Use as directed. To test blood sugars 4 times a day Dx E11.9 1 Each 0 Dexcom G6 Transmitter Use as directed. To test blood sugars 4 times a day. Change every 90 days. Dx E11.9 1 Each 3 OneTouch Verio In Vitro Strip (Glucose Blood) TESTING once daily 100 Strip 3 OneTouch Delica Plus [id number] TESTING once daily 100 Each 3 Nitroglycerin [...] Subcutaneous Solution Pen-injector Inject under the skin 42 Units every night at bedtime . Increase to 45 units at bedtime if BG greater than 180 after 1 week. 45 mL 3 Oxybutynin Chloride 5 MG Oral Tablet (Ditropan) TAKE 1 TABLET BY MOUTH TWICE DAILY 180 Tablet 1 No current facility-administered medications for this visit. REVIEW OF SYSTEMS: Performance Status: Normal - ECOG 3 See HPI, otherwise negative. OBJECTIVE: BP 142/70 (BP Site: Right Arm, BP Position: Sitting, BP Cuff Size: Large) | Pulse 64 | Temp 36.2 C (97.2 F) (Tympanic) | Resp 18 | SpO2 94% PHYSICAL EXAM: General Appearance: Normal - Healthy appearing patient in no acute distress, obesity present. Skin: Normal- No rashes, lesions or petechiae. HEENT: Normal - No oral or pharyngeal masses, ulceration or thrush noted, no sinus tenderness Lymph Nodes: Normal - No palpable lymph nodes in the neck or supraclavicular areas Lungs/Thorax: Normal - Clear to auscultation Heart: Normal - Regular rate and rhythm, normal S1, S2, no appreciable murmurs, rubs, gallops Pulses/Extremities: Bilateral leg edema present. Abdomen: Obesity present. Musculoskeletal: Normal - No pain on palpation over bony prominence, no joint or bony deformity Neurologic: Normal - Grossly intact Psyche: No vegetative signs of depression. LABS: Component HGB Latest Ref Rng & Units 12.0 - 15.3 g/dL 09/30/2021 7.9 (L) 10/04/2021 7.6 (L) 10/18/2021 7.8 (L) 11/01/2021 7.9 (L) 11/15/2021 8.3 (L) 11/29/2021 8.7 (L) 12/14/2021 10.2 (L) 12/20/2021 10.6 (L) 12/27/2021 10.2 (L) 01/10/2022 8.9 (L) 01/24/2022 9.1 (L) 02/09/2022 10.5 (L) 02/21/2022 9.3 (L) 03/08/2022 10.6 (L) ____ - Ferritin level > 91 (02/21/2022). IMPRESSION: Iron Deficiency Anemia, in the setting of cirrhosis of liver with portal Hypertension and splenomegaly causing pancytopenia. Now she has a port, she received IV iron in the past, last dose of Ferric Derisomaltose (Monoferric) received in April 2021. She gets frequent hospitalization, ER visits, gets periodic blood workup, has some nonspecific chest pain, back pain. Pt has had intermittent post menopausal bleeding for several months. She underwent hysteroscopy w/ bx, D&C, and polypectomy on 12/27/2021. Benign findings noted. S/PMirena IUD placement. She had some vaginal bleeding s/p the procedure, but reports it is starting to resolve. No vaginal bleeding today. She has not seen any blood in the stool lately. Presently she is receiving IV iron the form Venofer every 3 weekly. I reviewed her blood workup done over the last 6 months, hemoglobin level has stayed around 9 -10 range, did not require blood pressure support. Functional status is at baseline. She requires a motorized scooter and total assist for transfers. Will continue IV iron in the form of Venofer every 3 weekly as we planned earlier She should get CBCD checkup every 2 weekly and the Ferritin level checkup every 6 weekly. I am planning to see her back in about [address] Tono Sanchez Hem/Onc (This note was completed using the dictation program Fluency Direct. As such, there may be misspellings word substitutions, or other variations that should not change the essence of the clinical content of this encounter note. If there is need for further clarification, please direct questions to the provider listed above.) documented in this encounter Nursing Notes * Dinorah Teixeira LPN - 04/20/2022 1:46 PM EDT Patient identifed by name and birthdate Do you have any concerns about pain management for today's visit? No Living Will or Advance Directive for Health Care as noted on the problem list. [facility] is a way you can talk to your provider on line through e-mail. Would you like to sign up? I can activate it for you? DECLINES Filed Vitals: 04/20/22 1346 BP: 142/70 Pulse: 64 Resp: 18 Temp: 36.2 C (97.2 F) TempSrc: Tympanic SpO2: 94% documented in this encounter Plan of Treatment Upcoming Encounters Date Type Specialty Care Team Description 04/26/2022 Telemedicine Endocrinology Alberta Duque PA-C [address] [place] [address] 04/28/2022 Office Visit Gastroenterology Lyssa Stout CRNP [address] [facility] [place] [address] 04/29/2022 Office Visit Family Medicine Vanita Dunn MD [address] [place] [address] 05/03/2022 PulmDiagnostic Pulmonary Function West, Pft [address] [facility] [place] [address] 05/05/2022 Office Visit Cardiology Quyen Canseco CRNP [address] [place] [address] 05/10/2022 [facility] Visit [facility] July Poe, RN [address] [place] [address] 05/24/2022 Home Visit Family Medicine Kaylee Barakat, Community Health Vice President Client Services [address] [place] [address] 05/30/2022 Office Visit Gynecology Obstetrics Susan Jara MD [address] [place] [address] 06/01/2022 Office Visit Pharmacy Pharmacist, [facility] [address] [place] [address] 06/24/2022 Office Visit Sleep Disorders Love Francisco DO [address] [place] [address] 07/04/2022 Office Visit Gynecology Obstetrics Concetta Khan MD [address] [place], [place] [id number] 09/14/2022 PulmDiagnostic Pulmonary Function West, Pft [address] [facility] [place] [address] 09/28/2022 Office Visit Pulmonary Reynaldo Marquez MD [address] [place] [address] Scheduled Procedures Name Priority Associated Diagnoses Date/Ti [...] of this encounter Implants Implanted Type Area Screen Operator Device Identifier Shelf Expiration Date Model / Serial / Lot Microtech Sure Clip Implanted:Qty: 2 on 06/03/2020 by Janis Hatch DO at OR H Clip N/A: Colon 04/21/2022 [facility]-F-26-2 35-C-R / / [id number] documented as of this encounter Visit Diagnoses Diagnosis Iron deficiency anemia due to chronic blood loss- Primary Iron deficiency anemia secondary to blood loss (chronic) Splenomegaly documented in this encounter Advance Directives Documents on File Type Date Recorded Patient Survey Questionnaire Designer 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 WILL AND HEALTH CARE POA Power of Ship Erector 04/29/2021 12:00 AM TOM R OF PULLBOAT ENGINEER HEALTH CARE POA Advanced Directive 04/01/2021 [...] Agents on File Name Relationship Healthcare Agent [facility] Communication Syed Bustos Spouse Emergency Contact Care Teams Telecasting Technician Relationship Specialty Start Date End Date Vanita Dunn MD [address] [place] [address] PCP - General Family Medicine 03/16/21 documented as of this encounter
--- OUTSIDE RECORDS SUMMARY | 2023-05-10 18:36 | External Medical Summary | Summary of Care ---
Author Name Unknown Organization [place] [address] Care Team Providers Care Motion Picture Equipment Supervisor Name Role Phone Vanita Dunn MD Primary Care Provid er Reason for Visit * Reason Comments Diabetes Management Dosage Adjustment In Person (Anticoag Cl inic) Encounter Details Date Type Department Care Team Description 04/20/2022 Office Visit Pharmacy, [facility] [address] [place] [address] Pharmacist2, [facility] [address] [place] [address] Type 2 diabetes mellitus with hemoglobin A1c goal of less than 8.0% ([facility])* 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 documented as of this encounter (statuses as of 04/20/2022) Medications Medication Sig Dispensed Refills Start Date End Date Status nystatin (NYSTOP) 800268 UNIT/GM powder Apply topically to affected area 3 times a day. 60 g 1 10/16/2019 Active Dexcom G6 Financial Compliance Officer Device Use as directed. To [...] Strip 3 10/29/2020 Active OneTouch Delica Plus [id number] TESTING once daily 100 Each 3 10/29/2020 [...] hemoglobin A1c goal of less than 7.0% ([facility]) USE TO INJECT INSULIN FOUR TIMES DAILY. 400 Each 3 08/23/2021 Active Benzonatate 100 MG Oral Capsule (Tessalon Perlmelia)Indications:B ronchitis, complicated Take 1 Capsule by [...] bedtime . 45 mL 3 04/20/2022 Active Lantus SoloStar 100 UNIT/ML Subcutaneous Solution Pen-injectorIndicati ons:Type 2 diabetes mellitus with hemoglobin A1c goal of less than 8.0% (HCC) Inject under the skin 42 Units every night at bedtime . Increase to 45 units at bedtime if BG greater than 180 after 1 week. 45 mL 3 04/06/2022 Discontinue d(Refill) documented as of this encounter [...] pain 01/24/2012 01/17/2017 Genetic Sleep Disorder Research Other*[id number] 05/13/2011 04/07/2016 Obstructive sleep apnea 01/18/2011 12/27/19 [...] of this encounter Progress Notes * Joe Hoff, [facility] - 04/20/2022 2:17 PM EDT Images from the original note were not included. Medication Therapy Disease Management Clinic - Diabetes Management Progress Note Shaina Bustos, identified by name and date of , is a 66 year old female being seen for diabetesmanagement/education. Patient presents for return diabetic visit. DIABETES: Current diabetic medications: INCREASE: Novolog, Inject 35 units before breakfast, 39units before lunch, and45 units before supper INCREASE: Lantus pen,42units daily for 7 days - if BG >180 increase to 45 units Metformin ER 500mg daily Trulicity 4.5mg SQ weekly BG readings remain elevated despite increase in novolog and lantus doses at last visit. MEDICATION CHANGES: yes, see below; preferred pharmacy: [facility] Diabetic Medications: Novolog, Inject 35 units before breakfast, 39units before lunch, and45 units before supper INCREASE: Lantus pen,50 units daily Metformin ER 500mg daily Trulicity 4.5mg SQ weekly FOLLOW UP: Return to clinic in 6 weeks 06/01/2022 Joe Hoff [facility] Clinical Pharmacist - Field Service Manager Medication Therapy Management Clinic 04/20/2022, 2:27 PM documented in this encounter Plan of Treatment Upcoming Encounters Date Type Specialty Care Team Description 04/26/2022 Telemedicine Endocrinology Alberta Duque PA-C [address] [place] [address] 04/28/2022 Office Visit Gastroenterology Lyssa Stout CRNP [address] [place] [address] 04/29/2022 Office Visit Family Medicine Vanita Dunn MD [address] [place] [address] 05/03/2022 PulmDiagnostic Pulmonary Function West, Pft [address] [place] [address] 05/05/2022 Office Visit Cardiology Quyen Canseco CRNP [address] [place] [address] 05/10/2022 Home Visit [facility] July Poe, RN [address] [place] [address] 05/11/2022 Hem/Onc Treatment Hematology Oncology [place], Chair 9 Hem Onc Scenery [address] [place] [address] 05/24/2022 Home Visit Family Medicine Kaylee Barakat, Community Health Pellet Preparation Operator [address] [place] [address] 05/30/2022 Office Visit Gynecology Obstetrics Susan Jara MD [address] [place], [place] [phone] 06/01/2022 Office Visit Pharmacy Pharmacist1, [facility] Sp [address] [place] [address] 06/24/2022 Office Visit Sleep Disorders Love Francisco, DO [address] [place] [address] 07/04/2022 Office Visit Gynecology Obstetrics Concetta Khan MD [address] [facility] [place] [address] 09/14/2022 PulmDiagnostic Pulmonary Function West, Pft [address] [place] [address] 09/28/2022 Office Visit Pulmonary Reynaldo Marquez MD [address] [place] [id number] 10/26/2022 Office Visit Hematology Oncology Tono Sanchez MD [address] [place] [address] Scheduled Procedures Name Priority Associated Diagnoses Date/Ti [...] of this encounter Implants Implanted Type Area Band Saw Operator Device Identifier Shelf Expiration Date Model / Serial / Lot Microtech Sure Clip Implanted:Qty: 2 on 06/03/2020 by Janis Hatch DO at OR [facility] Clip N/A: Colon 04/21/2022 [facility]-F-26-2 35-C-R / / [id number] documented as of this encounter Visit Diagnoses Diagnosis Type 2 diabetes mellitus with hemoglobin A1c goal of less than 8.0% (HCC)- Primary documented in this encounter Advance Directives Documents on File Type Date Recorded Patient Surveying Teacher 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 WILL AND HEALTH CARE POA Power of Die Storage Clerk 04/29/2021 12:00 AM TOM R OF OFFICE SERVICES REPRESENTATIVE HEALTH CARE POA Advanced Directive 04/01/2021 [...] Syed Bustos Spouse Emergency Contact Care Teams Motion Picture Equipment Supervisor Relationship Specialty Start Date End Date Vanita Dunn MD [address] [place] [address] PCP - General Family Medicine 03/16/21 documented as of this encounter
--- OUTSIDE RECORDS SUMMARY | 2023-05-10 18:36 | External Medical Summary | Summary of Care ---
Author Name Unknown Organization [facility] Address [place] [address] Care Team Providers Care Senior Web Analyst Name Role Phone Vanita Dunn MD Primary Care Provid er Reason for Visit * Reason Onset Date Comments Order Request 04/11/2022 Encounter Details Date Type Department Care Team Description 04/11/[address] [facility] [address] [place] [address] Vanita Dunn MD [address] [place] [address] Order Request 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 documented as of this encounter (statuses as of 04/20/2022) Medications Medication Sig Dispensed Refills Start Date End Date Status nystatin (NYSTOP) 071592 UNIT/GM powder Apply topically to affected area 3 times a day. 60 g 1 10/16/2019 Active Dexcom G6 Legislative Assistant Device Use as directed. To test blood sugars 4 times a day Dx E11.9 1 Each 0 09/14/2020 Active Dexcom G6 Transmitter Use as directed. To test blood sugars 4 times a day. Change every 90 days. Dx E11.9 1 Each 3 09/14/2020 Active OneTouch Verio In Vitro Strip (Glucose Blood) TESTING once daily 100 Strip 3 10/29/2020 Active OneTouch Delica Plus [id number] TESTING once daily 100 Each 3 10/29/2020 [...] pain 01/24/2012 01/17/2017 Genetic Sleep Disorder Research Other*[id number] 05/13/2011 04/07/2016 Obstructive sleep apnea 01/18/2011 12/27/19 [...] for this patient. Name of Requesting Provider: [facility] Order Requested: lift chair Diagnosis/Reason for Request: ambulatory disfunction Does the order need to be faxed somewhere? If so, where?: [facility] Fax Number, if applicable: [phone] Call Back Number: [phone] Patient needs a replacement lift chair and can get it through the waiver program but script needs to be signed by or DO. If the caller is not a current patient, please advise the patient to call their current PCP to havethe order's prior to being seen in our office. The patient was informed that our providers would not order anything (medication, labs, etc.) prior to being seen. documented in this encounter Plan of Treatment Upcoming Encounters Date Type Specialty Care Team Description 04/20/2022 Office Visit Pharmacy Pharmacist2, [facility] [address] [place], [place] [address] 04/20/2022 Hem/Onc Treatment Hematology Oncology [place], Chair 3 Hem Onc [address] [place] [address] 04/26/2022 Telemedicine Endocrinology Alberta Duque PA-C [address] [place] [address] 04/28/2022 Office Visit Gastroenterology Lyssa Stout CRNP [address] [facility] [place] [address] 04/29/2022 Office Visit Family Medicine Vanita Dunn MD [address] [place] [address] 05/03/2022 PulmDiagnostic Pulmonary Function [place], [address] [place] [address] 05/05/2022 Office Visit Cardiology Quyen Canseco CRNP [address] [place] [address] 05/10/2022 [facility] Visit [facility] July Poe RN [address] [place] [address] 05/24/2022 Home Visit Family Medicine Kaylee Barakat, Community Health Parking Worker [address] [place] [address] 05/30/2022 Office Visit Gynecology Obstetrics Susan Jara MD [address] [place] [address] 06/24/2022 Office Visit Sleep Disorders Love Francisco, DO [address] [place] [address] 07/04/2022 Office Visit Gynecology Obstetrics Concetta Khan MD [address] [place] [id number] 09/14/2022 PulmDiagnostic Pulmonary Function [place], [address] [place] [address] 09/28/2022 Office Visit Pulmonary Reynaldo Marquez MD [address] [place] [address] Scheduled Procedures Name Priority Associated Diagnoses Date/Ti [...] of this encounter Implants Implanted Type Area Health Manager Device Identifier Shelf Expiration Date Model / Serial / Lot Microtech Sure Clip Implanted:Qty: 2 on 06/03/2020 by Janis Hatch DO at OR [facility] Clip N/A: Colon 04/21/2022 [facility]-F-26-2 35-C-R / / [id number] documented as of this encounter Visit Diagnoses [...] Documents on File Type Date Recorded Patient Excel Expert 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 WILL LIVING WILL AND HEALTH CARE POA [place] CrossfaderElectrotyper 04/29/2021 12:00 AM TOM R [facility] POA Advanced Directive 04/01/2021 1:14 [...] Bustos Spouse Emergency Contact Care Teams Senior Web Analyst Relationship Specialty Start Date End Date Vanita Dunn MD [address], [place] [phone] PCP - General Family Medicine 03/16/21 documented as of this encounter
--- OUTSIDE RECORDS SUMMARY | 2023-05-10 18:37 | External Medical Summary ---
Author Name Unknown Address Unknown Organization [id number]:[facility] [place] [address] [place] [address] Laboratory Report Ordering Provider Test Date Status JACOB CORBETT 04/20/2022 14:37:48 Final Observation Date Value Abnormality Reference (Units ) Status Iron 04/20/2022 14:37:48 135 33-151 (ug /dL) Final Iron-binding capacity 04/20/2022 14:37:48 285 250-425 (ug/dL) Final Transferrin Sat % 04/20/2022 14:37:48 47 15 -55 (%) Final Performing Location [facility] [place] [address] [place] [address]
--- OUTSIDE RECORDS SUMMARY | 2023-05-10 18:37 | External Medical Summary ---
Author Name Unknown Address Unknown Organization K01:[facility] - [address] [place] [address] Laboratory Report Ordering Provider Test Date Status JACOB CORBETT 04/20/2022 14:37:48 Final Observation Date Value Abnormality Reference (Units ) Status Ferritin 04/20/2022 14:37:48 106 13-150 (ng /mL) Final Performing Location [facility] - [address] [place] [address]
--- OUTSIDE RECORDS SUMMARY | 2023-05-10 18:37 | External Medical Summary ---
Author Name Unknown Address Unknown Organization K09:[facility] [place] [address] [place] [address] Laboratory Report Ordering Provider Test Date Status JACOB CORBETT 04/20/2022 14:37:53 Final Observation Date Value Abnormality Reference (Units ) Status Nucleated erythrocytes/100 leukocytes [Ratio] in Blood by Automated count 04/20/2022 14:37:53 Final Anisocytosis [Presence] in Blood by Light microscopy 04/20/2022 14:37:53 Slight Abnormal None Seen Final Elliptocytes [Presence] in Blood by Light microscopy 04/20/2022 14:37:53 Few Abnormal None Seen Final Macrocytes [Presence] in Blood by Light microscopy 04/20/2022 14:37:53 Present Abnormal None Seen Final Dacrocytes [Presence] in Blood by Light microscopy 04/20/2022 14:37:53 Few Abnormal None Seen Final Performing Location [facility] [place] [place] [address] [address]
--- OUTSIDE RECORDS SUMMARY | 2023-05-10 18:37 | External Medical Summary | Summary of Care ---
Author Name Unknown Organization [facility] Address [place] [address] Care Team Providers Care Remarketing Manager Name Role Phone Vanita Dunn MD Primary Care Provid er Encounter Details Date Type Department Care Team Description 04/07/2022 External Data Patient Risk Medial 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 documented as of this encounter (statuses as of 04/14/2022) Medications Medication Sig Dispensed Refills Start Date End Date Status nystatin (NYSTOP) 636892 UNIT/GM powder Apply topically to affected area 3 times a day. 60 g 1 10/16/2019 Active Dexcom G6 Shrimp Picker Device Use as directed. To test blood sugars 4 times a day Dx E11.9 1 Each 0 09/14/2020 Active Dexcom G6 Transmitter Use as directed. To test blood sugars 4 times a day. Change every 90 days. Dx E11.9 1 Each 3 09/14/2020 Active OneTouch Verio In Vitro Strip (Glucose Blood) TESTING once daily 100 Strip 3 10/29/2020 Active OneTouch Delica Plus [id number] TESTING once daily 100 Each 3 10/29/2020 [...] 1 week. 45 mL 3 04/06/2022 Active documented as of this encounter (statuses as of 04/14/2022) Active Problems Problem Noted Date Chronic diastolic [...] as of this encounter (statuses as of 04/14/2022) Resolved Problems Problem Noted Date Resolved Date [...] pain 01/24/2012 01/17/2017 Genetic Sleep Disorder Research Other*[id number] 05/13/2011 04/07/2016 Obstructive sleep apnea 01/18/2011 12/27/19 [...] as of this encounter (statuses as of 04/14/2022) Immunizations Name Administration Dates Next Due COVID-19 [...] Specialty Care Team Description 04/20/2022 Office Visit Hematology Oncology Tono Sanchez MD [address] [place] [address] 04/20/2022 Office Visit Pharmacy Pharmacist2, [facility] Sp [address] [place] [address] 04/20/2022 Hem/Onc Treatment Hematology Oncology [place], Chair [address] [address] 04/26/2022 Telemedicine Endocrinology Alberta Duque PA-C [address] [place] [address] 04/28/2022 Office Visit Gastroenterology Lyssa Stout CRNP 132 [facility] [place] [address] 04/29/2022 Office Visit Family Medicine Vanita Dunn MD [address] [place] [address] 05/03/2022 PulmDiagnostic Pulmonary Function [place], [address] [place] [address] 05/05/2022 Office Visit Cardiology Quyen Canseco CRNP 132 [facility] [place] [address] 05/10/2022 Home Visit [facility] July Poe, RN 132 [facility] [place] [address] 05/24/2022 Home Visit Family Medicine Kaylee Barakat, Community Health Tool Sharpener [address] [place] [address] 05/30/2022 Office Visit Gynecology Obstetrics Susan Jara MD [address] [facility] [place] [address] 06/24/2022 Office Visit Sleep Disorders Love Francisco DO 132 [facility] [place] [address] 07/04/2022 Office Visit Gynecology Obstetrics [facility] [place] [phone] 09/14/2022 PulmDiagnostic Pulmonary Function [place], Pft [address] [facility] [place] [address] 09/28/2022 Office Visit Pulmonary Reynaldo Marquez MD [address] [place] [phone] Scheduled Procedures Name Priority Associated Diagnoses Date/Ti [...] of this encounter Implants Implanted Type Area Benefits Officer Device Identifier Shelf Expiration Date Model / Serial / Lot Microtech Sure Clip Implanted:Qty: 2 on 06/03/2020 by Janis Hatch DO at OR [facility] Clip N/A: Colon 04/21/2022 [facility]-F-26-2 35-C-R / / [id number] documented as of this encounter Advance Directives Documents on File Type Date Recorded Patient Patient Accounts Specialist 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 WILL AND HEALTH CARE POA Power of Compressed Gases Tester 04/29/2021 12:[address] R OF [address]IVE IN WAITER/WAITRESS [facility] C[facility] POA Advanced Directive 04/01/2021 1:14 [...] Syed Bustos Spouse Emergency Contact Care Teams Remarketing Manager Relationship Specialty Start Date End Date Vanita Dunn MD [address] [place] [address] PCP - General Family Medicine 03/16/21 documented as of this encounter
--- OUTSIDE RECORDS SUMMARY | 2023-05-10 18:37 | External Medical Summary | Summary of Care ---
Author Name Unknown Organization [place] [address] Care Team Providers Care Leather Polisher Name Role Phone Vanita Dunn MD Primary Care Provid er Reason for Visit * Reason Comments [facility]: Maintenance Encounter Details Date Type Department Care Team Description 04/11/2022 Home Visit Care Coordination [address] [place] [address] Marisol Lundy, Community Health Signal Operator Technical [address] [place] [address] 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 documented as of this encounter (statuses as of 04/11/2022) Medications Medication Sig Dispensed Refills Start Date End Date Status nystatin (NYSTOP) 851381 UNIT/GM powder Apply topically to affected area 3 times a day. 60 g 1 10/16/2019 Active Dexcom G6 Account Auditor Device Use as directed. To test blood sugars 4 times a day Dx E11.9 1 Each 0 09/14/2020 Active Dexcom G6 Transmitter Use as directed. To test blood sugars 4 times a day. Change every 90 days. Dx E11.9 1 Each 3 09/14/2020 Active OneTouch Verio In Vitro Strip (Glucose Blood) TESTING once daily 100 Strip 3 10/29/2020 Active OneTouch Delica Plus Olfzlc71B TESTING once daily 100 Each 3 10/29/2020 [...] as of this encounter (statuses as of 04/11/2022) Active Problems Problem Noted Date Chronic diastolic [...] as of this encounter (statuses as of 04/11/2022) Resolved Problems Problem Noted Date Resolved Date [...] pain 01/24/2012 01/17/2017 Genetic Sleep Disorder Research Other*[id number] 05/13/2011 04/07/2016 Obstructive sleep apnea 01/18/2011 12/27/19 [...] as of this encounter (statuses as of 04/11/2022) Immunizations Name Administration Dates Next Due COVID-19 [...] Sign Reading Time Taken Comments Blood Pressure 124/62 04/11/2022 9:40 AM EDT Pulse 68 04/11/2022 9:40 AM EDT Temperature 36.6 C (97.8 F) 04/11/2022 9:40 AM ED T Respiratory Rate - - Oxygen Saturation 97% 04/11/2022 9:40 AM EDT Inhaled Oxygen Concentration - - [...] this encounter Progress Notes * Marisol Lundy, [facility] Health Signal Operator Technical - 04/11/2022 9:39 AM EDT Community Health Signal Operator Technical Visit Date: 04/11/2022 Time: 9:39 AM Name: Shaina Bustos : 1955 Referral Source: shared services and outsourcing manager Source of Information: Patient Spoken language: mauritian Patient can read in Japanese: Yes. Clerk Cashier needed: No. COVID-19 screening completed: Yes Vitals: Vital signs completed: Yes, vital signs within normal range. BP 124/62 (BP Site: Left Arm, BP Position: Supine, BP Cuff Size: Regular) | Pulse 68 | Temp 36.6 C (97.8 F) | SpO2 97% Condition Changes: Changes in health or social status since last visit: no The patient has new concerns since last visit: No Progress towards goals since last visit: no Medications: Medication review completed? No, none requested Does the patient have barriers to medication adherence? No. Patient reports difficulty paying for medications or might in the future: No. Telehealth: This is a telehealth visit: No. Symptoms Surveys and Evaluations: [facility]: No. Last flowsheet [facility] for [facility]: Age 65+: 1 (01/13/2022 1:00 PM) Diagnosis [...] at risk for fallin (01/13/2022 1:00 PM) Heart Failure Checklist A "good day" for the patient looks like every day Today is different than a "good day": No Patient describes sleep as good Normal The patient has been asked to track the amount of fluid they drink: No. There is an [facility] scale in the home: No. Typically, the patient's meals look like ~ Breakfast-toast, tea and maybe OJ Lunch-sandwich or leftover Dinner-meat/potatoe/veg Patient's food choices are lower in sodium. Home Safety Does member identify any safety issues related to entering or exiting their home? No Does the patient need a wheelchair ramp to access the home? Yes Snow/ice removal assistance available? Yes Is there adequate lighting? Yes Are there railings on stairs? No Do sidewalks appear to be in good [...] Are walkways clear and well lit? Yes Patient is bedbound and can only get out with candace lift. Does member identify any safety issues related to utilizing or accessing the bathroom in their home? No Does bathroom have grab bars needed? Yes The patient reports needing help getting on and off the toilet? Yes Does the patient report needing help bathing? Yes Patient does not go into the bathroom. She is bed bound and uses bed castillo. Are there any other identified issues/needs? No. If yes specify: Social Determinants of Health: Safety: o Patient reports feeling unsafe in their home: No. Housing: o Patient reports they are at risk of becoming homeless: No. Home/Living situation: o Patient lives alone: No, with spouse and [id number] o Bathroom is located 1 o Bedroom is located 1 o Patient has to go up and down steps: No. Patient receives help from family/friends/neighbors/community agencies etc.: Yes. Type of help the patient receives: transportation Patient perceitranves the help they receive as adequate: o Yes. DME: o DME used: Wheelchair, O2, Hospital bed, Bedside commode and Shower chair o Patient has concerns related to DME: [...] lonely or isolated from those around you? Sometimes. Specify plan/referrals/care team members notified: She is in bed unless she uses a hoyerlift to get to her w/c. she only talks to famil on the phone and does not see many people. Plan: Red Flags UTI-fever, confusion 2. Increased sob 3. Fever Discussed red flags with patient and spouse. Patient is aware to contact @[facility] if any new problems or concerns. Follow Up: Patient encouraged to call the intake phone number for all urgent but not emergent issues. Scheduled to follow up with patient with EMILE after RN eldon. Marisol Lundy [facility] Health Signal Operator Technical 04/11/2022 9:39 AM documented in this encounter Plan of Treatment Upcoming Encounters Date Type Specialty Care Team Description 04/20/2022 Office Visit Hematology Oncology Tono Sanchez MD [address] [place] [address] 04/20/2022 Office Visit [facility] Pharmacist2, [facility] [address] 04/20/2022 Hem/Onc Treatment Hematology Oncology [place], Chair 3 Hem Onc [facility] [address] [place] [address] 04/26/2022 Telemedicine Endocrinology Alberta Duque PA-C [address] [place] [address] 04/28/2022 Office Visit Gastroenterology Lyssa Stout CRNP [address] [place] [address] 04/29/2022 Office Visit Family Medicine [facility]ita Dunn [facility] [address] [facility] [address] 05/03/2022 PulmDiagnostic Pulmonary Function [place], Pft 132 [facility] [place] [address] 05/05/2022 Office Visit Cardiology Quyen Canseco CRNP 132 [facility] [place] [address] 05/10/2022 [facility] Visit [facility] July Poe RN 132 [facility] [place] [address] 05/30/2022 Office Visit Gynecology Obstetrics Susan Jara MD [address] [place] [address] 06/24/2022 Office Visit Sleep Disorders Love Francisco DO 132 [facility] [place] [address] 07/04/2022 Office Visit Gynecology Obstetrics Concetta Khan MD [address] [place] [address] 09/14/2022 PulmDiagnostic Pulmonary Function [place], Pft [address] [facility] [place] [address] 09/28/2022 Office Visit Pulmonary Reynaldo Marquez MD [address] [place] [phone] Scheduled Procedures Name Priority Associated Diagnoses Date/Ti [...] of this encounter Implants Implanted Type Area Lobster Catcher Device Identifier Shelf Expiration Date Model / Serial / Lot Microtech Sure Clip Implanted:Qty: 2 on 06/03/2020 by Janis Hatch DO at OR [facility] Clip N/A: Colon 04/21/2022 [facility]-F-26-2 35-C-R / / [id number] documented as of this encounter Advance Directives Documents on File Type Date Recorded Patient Scientific Helper 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 WILL AND HEALTH CARE POA Power of Brewery Representative 04/29/2021 12:00 AM TOM R OF BUSINESS DEVELOPMENT ASSISTANT HEALTH CARE POA Advanced Directive 04/01/2021 1:14 [...] Syed Bustos Spouse Emergency Contact Care Teams Leather Polisher Relationship Specialty Start Date End Date Vanita Dunn MD [address] [place] [address] PCP - General Family Medicine 03/16/21 documented as of this encounter
--- OUTSIDE RECORDS SUMMARY | 2023-05-10 18:37 | External Medical Summary ---
Author Name Unknown Address Unknown Organization K09:[facility] [place] [address] [address] Laboratory Report Ordering Provider Test Date Status JACOB CORBETT 04/20/2022 14:37:53 Final Observation Date Value Abnormality Reference (Units ) Status SYNC LEUKOCYTES IN BLOOD BY AUTOMATED COUNT 04/20/2022 14:37:53 3.71 Below low normal 4.00-10.80 (K/uL) Final Segs 04/20/2022 14:37:53 59.6 40.0-75.0 (%) Final Lymphs % 04/20/2022 14:37:53 18.3 18.0-42.0 (%) Final Monos 04/20/2022 14:37:53 12.9 Above high normal 1.0-11.0 (%) Final Eosinophils 04/20/2022 14:37:53 8.1 Above high normal 0.0-6.0 (%) Final Basos 04/20/2022 14:37:53 1.1 0.0-2.0 (%) Final Absolute Segs 04/20/2022 14:37:53 2.21 1.80-7.70 (K/uL) Final Lymphs, absolute 04/20/2022 14:37:53 0.68 Below low normal 1.00-4.80 (K/ul) Final Monos, Abs 04/20/2022 14:37:53 0.48 0.00-1.10 (K/uL) Final Eos, Abs 04/20/2022 14:37:53 0.30 0.00-0.70 (K/uL) Final Basos, Abs 04/20/2022 14:37:53 0.04 0.00-0.20 (K/uL) Final Performing Location [facility] [place] [address] [address]
--- OUTSIDE RECORDS SUMMARY | 2023-05-10 18:37 | External Medical Summary ---
Author Name Unknown Address Unknown Organization K09:[facility] [place] [address] Laboratory Report Ordering Provider Test Date Status JACOB CORBETT 04/20/2022 14:37:53 Final Observation Date Value Abnormality Reference (Units ) Status WBC, Total 04/20/2022 14:37:53 3.71 Below low normal 4. 00-10.80 (K/uL) Final RBC 04/20/2022 14:37:53 3.07 3.85-5.15 (M/uL) Final Hemoglobin 04/20/2022 14:37:53 11.2 Below low normal 12 .0-15.3 (g/dL) Final HCT 04/20/2022 14:37:53 34.3 Below low normal 36. 0-45.2 (%) Final MCV 04/20/2022 14:37:53 111.7 81.5-97.5 (fL) Final MCH 04/20/2022 14:37:53 36.5 27.0-34.0 (pg) Final MCHC 04/20/2022 14:37:53 32.7 32.0-36.0 (g/dL) Final RDW 04/20/2022 14:37:53 18.3 11.5-15.5 (%) Final Platelets 04/20/2022 14:37:53 72 Below low normal 140 -400 (K/uL) Final MPV 04/20/2022 14:37:53 12.9 6.6-11.1 ( fL) Final Performing Location [facility] [place] [place] [address]
--- OUTSIDE RECORDS SUMMARY | 2023-05-10 18:38 | External Medical Summary | Summary of Care ---
Author Name Unknown Organization [place] [address] Care Team Providers Care District Attorney Name Role Phone Kojo Dunn MD Primary Care Provid er Reason for Visit * Reason Comments eRx-Medication Refill Encounter Details Date Type Department Care Team Description 04/08/2022 Refill [facility] [address] [place] [address] Ezekiel Bullard MD [address] [place] [address] 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 documented as of this encounter (statuses as of 04/10/2022) Medications Medication Sig Dispensed Refills Start Date End Date Status nystatin (NYSTOP) 198550 UNIT/GM powder Apply topically to affected area 3 times a day. 60 g 1 10/16/2019 Active Dexcom G6 Lead Software Developer Device Use as directed. To test blood sugars 4 times a day Dx E11.9 1 Each 0 09/14/2020 Active Dexcom G6 Transmitter Use as directed. To test blood sugars 4 times a day. Change every 90 days. Dx E11.9 1 Each 3 09/14/2020 Active OneTouch Verio In Vitro Strip (Glucose Blood) TESTING once daily 100 Strip 3 10/29/2020 Active OneTouch Delica Plus Hlndri39R TESTING once daily 100 Each 3 10/29/2020 [...] 06/02/2021 Active Gabapentin 300 MG Oral Capsule (Neurontin)Indicati [...] A1c goal of less than 7.0% ([facility]) USE TO INJECT INSULIN FOUR TIMES DAILY. 400 Each 3 08/23/2021 Active Benzonatate 100 MG Oral Capsule (Tessalon Perles)Indications: Bronchitis, complicated Take 1 Capsule by mouth 3 times a day as needed for Cough. 30 Capsule 1 09/17/2021 Active Budesonide-Formoter ol Fumarate 160-4.5 MCG/ACT Inhalation [...] TWICE DAILY 180 Tablet 1 04/10/2022 Active Oxybutynin Chloride 5 MG Oral Tablet (Ditropan) TAKE 1 TABLET BY MOUTH TWICE DAILY 180 Tablet 1 10/26/2021 04/10/20 22 Discontinued documented as of this encounter (statuses as of 04/10/2022) Active Problems Problem Noted Date Chronic diastolic (congestive) heart jaymie guido 09/13/2021 Portal hypertensive gastropathy 03/16/20 21 Esophageal [...] as of this encounter (statuses as of 04/10/2022) Resolved Problems Problem Noted Date Resolved Date [...] pain 01/24/2012 01/17/2017 Genetic Sleep Disorder Research Other*[id number] 05/13/2011 04/07/2016 Obstructive sleep apnea 01/18/2011 12/27/19 [...] as of this encounter (statuses as of 04/10/2022) Immunizations Name Administration Dates Next Due COVID-19 [...] Telephone Encounter - Kojo Dunn MD - 04/10/2022 1:57 PM EDT Signed Prescriptions: Disp Refills Oxybutynin Chloride 5 MG Oral Tablet (Ditr*180 Ta*1 Sig: TAKE 1 TABLET BY MOUTH TWICE DAILY Authorizing Provider: KOJO DUNN * Telephone Encounter - Francine Perera, [facility] - 04/08/2022 6:29 PM EDT Pending Prescriptions: Disp Refills Oxybutynin Chloride 5 MG Oral Tablet (Dit*180 Ta*1 Sig: TAKE 1 TABLET BY MOUTH TWICE DAILY * Telephone Encounter - Francine Perera RPh - 04/08/2022 6:29 PM EDT Did you pend patient's preferred pharmacy and medication before forwarding?yes Pharmacy: [id number] [facility] Pending Prescriptions: Disp Refills Oxybutynin Chloride 5 MG Oral Tablet (Dit*180 Ta*1 Sig: TAKE 1 TABLET BY MOUTH TWICE DAILY Last Visit: 12/15/2021 (in office), 09/17/2021 (telemedicine) Next Visit: 04/29/2022 If no future appointments scheduled, and last appointment is greater than a year ago, please schedule patient for a follow-up appointment Last date the medication was ordered: 10/26/21 Is this request for a controlled substance?No [...] AM LDLDIRECT 46 02/21/2020 11:43 AM ALT 25 12/20/2021 02:48 PM ALT 23 08/21/2020 04:35 PM HGBA1C 6.9 (H) 01/24/2022 08:34 AM HGBA1C 9.9 (H) 07/06/2020 05:24 AM documented in this encounter Plan of Treatment Upcoming Encounters Date Type Specialty Care Team Description 04/11/2022 Home Visit Family Medicine Marisol Lundy, Community Health Immigration Lawyer [address] [place] [address] 04/20/2022 Office Visit Hematology Oncology Tono Sanchez MD [address] [place] [address] 04/20/2022 Office Visit Pharmacy Pharmacist2, [facility] [address] [place] [address] 04/20/2022 Hem/Onc Treatment Hematology Oncology [place], Chair [address] [address] 04/26/2022 Telemedicine Endocrinology Alberta Duque PA-C [address] [place], [place] [id number] 04/28/2022 Office Visit Gastroenterology Lyssa Stout CRNP [address] [facility] [place] [address] 04/29/2022 Office Visit Family Medicine Kojo Dunn MD [address] [place] [address] 05/03/2022 PulmDiagnostic Pulmonary Function [place], [address] [place] [address] 05/05/2022 Office Visit Cardiology Quyen Canseco CRNP [address] [facility] [place] [address] 05/10/2022 [facility] Visit [facility] Poe, RN [facility] [place] [address] 05/30/2022 Office Visit Gynecology Obstetrics Susan J[facility] [address] [facility] [place] [place] [id number] 06/24/2022 Office Visit Sleep Disorders Love Francisco DO [address] [place] [address] 07/04/2022 Office Visit Gynecology Obstetrics Concetta Khan MD [address] [facility] [place] [address] 09/14/2022 PulmDiagnostic Pulmonary Function West, [address] [facility] [place] [address] 09/28/2022 Office Visit Pulmonary Reynaldo Marquez MD [...] of this encounter Implants Implanted Type Area Wrapper Hands Sprayer Device Identifier Shelf Expiration Date Model / Serial / Lot Microtech Sure Clip Implanted:Qty: 2 on 06/03/2020 by Janis Hatch DO at OR [facility] Clip N/A: Colon 04/21/2022 [facility]-F-26-2 35-C-R / / [id number] documented as of this encounter Advance Directives Documents on File Type Date Recorded 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
--- OUTSIDE RECORDS SUMMARY | 2023-05-10 18:38 | External Medical Summary | Summary of Care ---
Author Name Unknown Organization [facility] [place] [address] Care Team Providers Care Director Perioperative Name Role Phone Vanita Dunn MD Primary Care Provid er Reason for Visit * Reason Onset Date Comments Health Maintenance 03/29/2022 Encounter Details Date Type Department Care Team Description 03/29/2022 Telephone [facility] [address] [place] [address] Vanita Dunn MD [address] [place] [address] Health Maintenance 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 documented as of this encounter (statuses as of 04/07/2022) Medications Medication Sig Dispensed Refills Start Date End Date Status nystatin (NYSTOP) 353515 UNIT/GM powder Apply topically to affected area 3 times a day. 60 g 1 10/16/2019 Active Dexcom G6 Seasonal Delivery Driver Device Use as directed. To test blood sugars 4 times a day Dx E11.9 1 Each 0 09/14/2020 Active Dexcom G6 Transmitter Use as directed. To test blood sugars 4 times a day. Change every 90 days. Dx E11.9 1 Each 3 09/14/2020 Active OneTouch Verio In Vitro Strip (Glucose Blood) TESTING once daily 100 Strip 3 10/29/2020 Active OneTouch Delica Plus Segatr50S TESTING once daily 100 Each 3 10/29/2020 [...] Active Benzonatate 100 MG Oral Capsule ([place] Arnold)Indications:B ronchitis, complicated Take 1 Capsule by mouth [...] as directed 60 Each 5 10/06/2021 Active Oxybutynin Chloride 5 MG Oral Tablet (Ditropan) TAKE 1 TABLET BY MOUTH TWICE DAILY 180 Tablet 1 10/26/2021 Active Mupirocin 2 % External Ointment (Bactroban) [...] ONCE DAILY 30 Tablet 8 03/12/2022 Active Lantus SoloStar 100 UNIT/ML Subcutaneous Solution Pen-injector 36 Units every night at bedtime . 0 11/13/2021 2 Discontinue d(Refill) NovoLOG FlexPen 100 UNIT/ML Subcutaneous Solution Pen-injector 32 Units at breakfast, 36 Units before lunch, 36 Units before supper 1 Each 11 03/24/2022 2 Discontinue d(Refill) documented as of this encounter (statuses as of 04/07/2022) Active Problems Problem Noted Date Chronic diastolic [...] as of this encounter (statuses as of 04/07/2022) Resolved Problems Problem Noted Date Resolved Date [...] pain 01/24/2012 01/17/2017 Genetic Sleep Disorder Research Other*[id number] 05/13/2011 04/07/2016 Obstructive sleep apnea 01/18/2011 12/27/19 [...] as of this encounter (statuses as of 04/07/2022) Immunizations Name Administration Dates Next Due COVID-19 [...] Miscellaneous Notes * Telephone Encounter - Rosy Sheehan LPN - 03/29/2022 12:17 PM EDT Care Gaps Comprehensive Care Outreach Last Office/Telemedicine Visit: 12/15/2021 (in office), 09/17/2021 (telemedicine) Last Office/Telemedine Visit Annual Wellness: Next Office Visit: Visit date not found Hemoglobin AIC Results: Lab Results Component Value Date/Time HEMOGLOBIN A1C - [facility] 6.9 (H) 01/24/2022 08:34 AM HEMOGLOBIN A1C - [facility] 7.1 (H) 08/19/2021 04:19 PM HEMOGLOBIN A1C - [facility] 7.4 (H) 06/10/2021 02:45 PM HEMOGLOBIN A1C - [facility] 9.9 (H) 07/06/2020 05:24 AM HEMOGLOBIN A1C - [facility] 11.0 (H) 05/26/2020 04:44 AM HEMOGLOBIN A1C - [facility] 9.9 (H) 04/28/2020 04:37 PM Health Maintenance Topic Date Due DXA Scan Never done DIABETES-EYE EXAM 06/12/2019 DIABETES-URINE ALBUMIN/CREATININE EVERY 12 MONTHS 01/12/2020 Pneumococcal Vaccine: 65+ Years (3 - PPSV23 or PCV20) 2020 Zoster Vaccines (3 of 3) 06/23/2020 DIABETES-FOOT EXAM 04/05/2022 BREAST CANCER SCREENING DISCUSSION YEARLY AGES 40-75 09/09/2022 Care Gap Outreach Action Taken: Spoke to patient Scheduled pcp Urine added, will drop off tomorrow Retinal scan with ov Deferred other hm at this time due to multiple other appts documented in this encounter Plan of Treatment Upcoming Encounters Date Type Specialty Care Team Description 04/11/2022 Home Visit Family Medicine Kaylee Barakat, Community Health Director Data [address] [place] [address] 04/20/2022 Office Visit Hematology Oncology Tono Sanchez MD [address] [place] [address] 04/20/2022 Office Visit Pharmacy Pharmacist2, [facility] [address] [place] [address] 04/20/2022 Hem/Onc Treatment Hematology Oncology [place], Chair [address] [address] 04/26/2022 Telemedicine Endocrinology Alberta Duque PA-C [address] [place] [address] 04/28/2022 Office Visit Gastroenterology Lyssa Stout CRNP [address] [facility] [place] [address] 04/29/2022 Office Visit Family Medicine Vanita Dunn MD [address] [place] [address] 05/03/2022 PulmDiagnostic Pulmonary Function [place], [address] [place] [address] 05/05/2022 Office Visit Cardiology Quyen Canseco CRNP [address] [place] [address] 05/10/2022 [facility] Visit [facility] July Poe, RN [facility] [place] [address] 05/30/2022 Office Visit Gynecology Obstetrics Susan Jara MD [address] [facility] [place] [address] 06/24/2022 Office Visit Sleep Disorders Love Francisco DO [address] [place] [address] 07/04/2022 Office Visit Gynecology Obstetrics Concetta Khan MD [address] [facility] [place] [address] 09/14/2022 PulmDiagnostic Pulmonary Function West, [address] [facility] [place] [address] 09/28/2022 Office Visit Pulmonary Reynaldo Marquez MD [...] of this encounter Implants Implanted Type Area Final Assembler Device Identifier Shelf Expiration Date Model / Serial / Lot Microtech Sure Clip Implanted:Qty: 2 on 06/03/2020 by Janis Hatch DO at OR [facility] Clip N/A: Colon 04/21/2022 [facility]-F-26-2 35-C-R / / [id number] documented as of this encounter Results * (ABNORMAL) ALBUMIN / CREATININE RATIO, URINE (03/30/2022 2:02 PM EDT) Albumin, Random Urine 19.14 mg/dL LABORATORY C Creatinine, Random Urine 131 mg/dL [facility] Albumin / Creatinine Ratio, Urine 146(H) <30 mg/g Creat [facility] Specimen Urine Narrative [facility] - 03/31/2022 1:03 AM EDT Normal: <30 mg/g creatinine High: 30-300 mg/g creatinine Very High: >300 mg/g creatinine Nephrotic: >2200 mg/g creatinine Performing Organization Address City/State/[facility] Co de Phone Number [facility] [address] [place] [address] documented in this encounter Visit Diagnoses Diagnosis Screening for diabetic retinopathy Screening for other eye conditions Screening for nephropathy documented in this encounter Advance Directives Documents on File Type Date Recorded 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
--- OUTSIDE RECORDS SUMMARY | 2023-05-10 18:39 | External Medical Summary | Summary of Care ---
Author Name Unknown Organization [facility] Address [place] [address] Care Team Providers Care Director Of [employer] Name Role Phone Vanita Dunn MD Primary Care Provid er Reason for Visit * Reason Onset Date Comments [facility]: Maintenance 04/01/2022 u ti Encounter Details Date Type Department Care Team Description 04/01/2022 Scheduled Telephone [facility], [facility] [address] [place] [address] Coordinator, [facility] [address] [place] [address] 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 documented as of this encounter (statuses as of 04/01/2022) Medications Medication Sig Dispensed Refills Start Date End Date Status nystatin (NYSTOP) 350011 UNIT/GM powder Apply topically to affected area 3 times a day. 60 g 1 10/16/2019 Active Dexcom G6 Boom Truck Driver Device Use as directed. To test blood sugars 4 times a day Dx E11.9 1 Each 0 09/14/2020 Active Dexcom G6 Transmitter Use as directed. To test blood sugars 4 times a day. Change every 90 days. Dx E11.9 1 Each 3 09/14/2020 Active OneTouch Verio In Vitro Strip (Glucose Blood) TESTING once daily 100 Strip 3 10/29/2020 Active OneTouch Delica Plus [id number] TESTING once daily 100 Each 3 10/29/2020 [...] twice daily 22 g 0 11/08/2021 Active Lantus SoloStar 100 UNIT/ML Subcutaneous Solution Pen-injector 36 Units every night at bedtime . 0 11/13/2021 Active Potassium Chloride ER 10 MEQ Oral [...] Active NovoLOG FlexPen 100 UNIT/ML Subcutaneous Solution Pen-injector 32 Units at breakfast, 36 Units before lunch, 36 Units before supper 1 Each 11 03/24/2022 Active documented as of this encounter (statuses as of 04/01/2022) Active Problems Problem Noted Date Chronic diastolic [...] as of this encounter (statuses as of 04/01/2022) Resolved Problems Problem Noted Date Resolved Date [...] pain 01/24/2012 01/17/2017 Genetic Sleep Disorder Research Other*[id number] 05/13/2011 04/07/2016 Obstructive sleep apnea 01/18/2011 12/27/19 [...] as of this encounter (statuses as of 04/01/2022) Immunizations Name Administration Dates Next Due COVID-19 [...] Telephone Encounter - Dorothy Walker LPN - 04/01/2022 12:53 PM EDT Pt informed * Telephone Encounter - Jose Barlow DO - 04/01/2022 12:26 PM EDT [facility] Eliseo Mcdonnell Subprogram: Focused Care Management (3-9 months) Brief Recommendations: Urine Cx shows colonization/contamination - with symptoms improving even not at baseline and initial UA findings, I would continue with symptomatic tx at this time. If symptoms start to worsen, then I would recheck urine To Do: Please see below for follow up items to be completed and correspondence: Telephonic DEVAN Pool please work on the following: relay advice given as above Jose Barlow DO [facility] - [facility] 04/01/2022 Scheduled appointments in the next 60 days: Future Appointments-next 60 days Date/Time Provider Specialty Dept Phone 04/06/2022 2:00 PM [facility] Pharmacist1 Pharmacy [phone] 04/11/2022 9:30 AM Kaylee Barakat, [facility] Shipping Support Family Medicine [phone] 04/20/2022 1:45 PM (Arrive by 1:30 PM) Tono Sanchez MD Hematology Oncology [phone] 04/20/2022 2:15 PM Chair 3 Hem Onc [facility] Hematology Oncology [phone] 04/26/2022 4:00 PM Alberta Duque PA-C Endocrinology [phone] 04/28/2022 1:30 PM (Arrive by 1:15 PM) ZAK Bolton Gastroenterology [phone] 04/29/2022 2:40 PM (Arrive by 2:25 PM) Vanita Dunn MD Family Medicine [phone] 05/03/2022 10:30 AM [facility] Pulmonary Function [phone] 05/05/2022 1:00 PM (Arrive by 12:45 PM) ZAK Rangel Cardiology [phone] 05/10/2022 8:30 AM July Poe RN [facility] [phone] 05/30/2022 5:00 PM (Arrive by 4:45 PM) Susan Jara MD Gynecology Obstetrics [phone] 06/24/2022 1:20 PM Love Francisco DO Sleep Disorders [phone] 07/04/2022 2:30 PM (Arrive by 2:15 PM) Concetta Khan MD Gynecology Obstetrics [phone] 09/14/2022 2:30 PM [facility] Pulmonary Function [phone] 09/28/2022 3:20 PM (Arrive by 3:05 PM) Reynaldo Marquez MD Pulmonary [phone] * Telephone Encounter - Tamara Gutierrez LPN - 04/01/2022 12:16 PM EDT [facility] Telephonic Nurse Follow-Up Call Follow Up Call Type: Routine follow up call / Status Check Acute issue requiring follow-up call: Other: urinary concerns Objective: VITALS ACROSS ENCOUNTERS 03/30/2022 03/29/2022 03/25/2022 03/09/2022 03/03/2022 BP 89/55 132/64 134/68 110/63 120/62 Pulse 91 69 73 74 - Weight - - (No Data) - 113.4 kg BMI - - - - 50.47 BODY MASS INDEX - - - - - Lab Results Component Value Date BLOOD, URINE - [facility] Large (A) 03/30/2022 PROTEIN, URINE - [facility] 100 (A) 03/30/2022 NITRITE, URINE - [facility] Negative 03/30/2022 ESTERASE, URINE - [facility] Large (A) 03/30/2022 WBC AUTO - [facility] 3.33 (L) 03/08/2022 WBC, URINE - [facility] 50+ (A) 03/30/2022 BACTERIA, URINE - [facility] >200 (A) 03/30/2022 URINALYSIS, REFLEX TO CULTURE SPECIMEN Specimen collected and received 03/30/2022 Lab Results Component Value Date WBC AUTO - [facility] 3.33 (L) 03/08/2022 HGB - [facility] 10.6 (L) 03/08/2022 PLATELET AUTO - [facility] 79 (L) 03/08/2022 No results found for: SODIUM - [facility], [...] but not at baseline Current Concerns: Call placed. Spoke with patient Urine collected- awaiting culture Denies any frequency Continues with slight hematuria, odor, dark yellow, burning, low abdominal cramping Taking Cranberry pills Denies any fever or chills [facility] in [facility] Disposition: Routed to [facility] and/or [facility] Care Team for further advice Future Visits Scheduled: Future Appointments-next 60 days Date/Time Provider Specialty Dept Phone 04/06/2022 2:00 PM [facility] Sp Pharmacist1 Pharmacy [phone] 04/11/2022 9:30 AM Kaylee Barakat [facility] Shipping Support Family Medicine [phone] 04/20/2022 1:45 PM (Arrive by 1:30 PM) Tono Sanchez MD Hematology Oncology [phone] 04/20/2022 2:15 PM Chair 3 Hem Onc [facility] [place] Hematology Oncology [phone] 04/26/2022 4:00 PM Alberta Duque PA-C Endocrinology [phone] 04/28/2022 1:30 PM (Arrive by 1:15 PM) ZAK Bolton Gastroenterology [phone] 04/29/2022 2:40 PM (Arrive by 2:25 PM) Vanita Dunn MD Family Medicine [phone] 05/03/2022 10:30 AM [facility] Pulmonary Function [phone] 05/05/2022 1:00 PM (Arrive by 12:45 PM) ZAK Rangel Cardiology [phone] 05/10/2022 8:30 AM July Poe RN [facility] [phone] 05/30/2022 5:00 PM (Arrive by 4:45 PM) Susan Jara MD Gynecology Obstetrics [phone] 06/24/2022 1:20 PM Love Francisco, Sleep Disorders [phone] 07/04/2022 2:30 PM (Arrive by 2:15 PM) Concetta Khan MD Gynecology Obstetrics [phone] 09/14/2022 2:30 PM [facility] Pulmonary Function [phone] 09/28/2022 3:20 PM (Arrive by 3:05 PM) Reynaldo Marquez MD Pulmonary [phone] documented in this encounter Plan of Treatment Upcoming Encounters Date Type Specialty Care Team Description 04/06/2022 Office Visit Pharmacy Pharmacist1, [facility] Sp [address] [place] [address] 04/11/2022 Home Visit Family Medicine Kaylee Barakat, [facility] [address] [place] [address] 04/20/2022 Office Visit Hematology Oncology Tono Sanchez MD [address] [facility] [place] [address] 04/20/2022 Hem/Onc Treatment Hematology Oncology [place], Chair 3 Hem Onc [address] [place] [address] 04/26/2022 Telemedicine Endocrinology Alberta Duque PA-C [address] [place] [address] 04/28/2022 Office Visit Gastroenterology Lyssa Stout CRNP [address] [facility] [place] [address] 04/29/2022 Office Visit Family Medicine Vanita Dunn MD [address] [place] [address] 05/03/2022 PulmDiagnostic Pulmonary Function West, Pft [address] [place] [address] 05/05/2022 Office Visit Cardiology Quyen Canseco CRNP [address] [place] [address] 05/10/2022 Home Visit [facility] July Poe, RN [address] [place] [address] 05/30/2022 Office Visit Gynecology Obstetrics Susan Jara MD [address] [place] [address] [place] [address] 06/24/2022 Office Visit Sleep Disorders Love Francisco DO [address] [place] [address] 07/04/2022 Office Visit Gynecology Obstetrics Concetta Khan MD [address] [place] [address] 09/14/2022 PulmDiagnostic Pulmonary Function West, Pft [address] [place] [address] 09/28/2022 Office Visit Pulmonary Reynaldo Marquez MD [address] [place] [id number] Scheduled Procedures Name Priority Associated Diagnoses Date/Ti [...] 12 and Over 07/27/2021 07/27/2020, 12/09/2015, 10/20/2014 *URINE ALBUMIN/CREATININE RATIO ONCE FOR HTN 01/14/2022 DIABETES-FOOT EXAM 04/05/2022 04/05/2021, 0 11/06/2019, 01/09/2019, Additional history exists Influenza Vaccine (FLU shot) (#1) 2022 06/10/2021, 06/01/2020, 06/05/2019, Additional history exists TSH FOR THYROID MEDICATION MONITORING YEARLY 06/10/2022 06/10/2021, 04/05/2021, 02/04/2021, Additional history exists Yearly B-12 07/06/2022 07/06/2021, 07/2 10/2020, 03/21/2021, Additional history exists DIABETES-HGBA1C EVERY 6 MONTHS 07/27/2022 01/24/2022, 08/19/2021, 06/10/2021, Additional history exists BREAST CANCER SCREENING DISCUSSION YEARLY AGES 40-75 09/09/2022 09/09/2021, 09/08/2020, 09/02/2019, Additional history exists GFR - Renal Function 12/20/2022 12/20/2021, 12/18/2021, 09/23/2021, Additional history exists DIABETES-URINE ALBUMIN/CREATININE EVERY 12 MONTHS 03/30/2023 03/30/2022, 01/11/2019, 02/03/2017, Additional history exists COLONOSCOPY-EVERY 5 YRS AGES [...] of this encounter Implants Implanted Type Area Fisheries Diver Device Identifier Shelf Expiration Date Model / Serial / Lot Microtech Sure Clip Implanted:Qty: 2 on 06/03/2020 by Janis Hatch DO at OR 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
--- OUTSIDE RECORDS SUMMARY | 2023-05-10 18:39 | External Medical Summary | Summary of Care ---
Author Name Unknown Organization [place] [address] Care Team Providers Care Chief Telephone Operator Name Role Phone Vanita Dunn MD Primary Care Provid er Reason for Visit * Reason Comments Diabetes Follow-Up Dosage Adjustment In Person (Anticoag Cl inic) Encounter Details Date Type Department Care Team Description 04/06/2022 Office Visit Pharmacy, [facility] [address] [facility] [place] [address] Pharmacist1, [facility] [address] [facility] [place] [address] Type 2 diabetes mellitus with hemoglobin A1c goal of less than 8.0% ([facility])* 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 documented as of this encounter (statuses as of 04/06/2022) Medications Medication Sig Dispensed Refills Start Date End Date Status nystatin (NYSTOP) 449558 UNIT/GM powder Apply topically to affected area 3 times a day. 60 g 1 10/16/2019 Active Dexcom G6 Site Foreman Device Use as directed. To test blood sugars 4 times a day Dx E11.9 1 Each 0 09/14/2020 Active Dexcom G6 Transmitter Use as directed. To test blood sugars 4 times a day. Change every 90 days. Dx E11.9 1 Each 3 09/14/2020 Active OneTouch Verio In Vitro Strip (Glucose Blood) TESTING once daily 100 Strip 3 10/29/2020 Active OneTouch Delica Plus [id number] TESTING once daily 100 Each 3 10/29/2020 [...] 1 week. 45 mL 3 04/06/2022 Active Lantus SoloStar 100 UNIT/ML Subcutaneous Solution Pen-injector 36 Units every night at bedtime . 0 11/13/2021 Discontinue d(Refill) NovoLOG FlexPen 100 UNIT/ML Subcutaneous Solution Pen-injector 32 Units at breakfast, 36 Units before lunch, 36 Units before supper 1 Each 11 03/24/2022 Discontinue d(Refill) documented as of this encounter (statuses as of 04/06/2022) Active Problems Problem Noted Date Chronic diastolic [...] as of this encounter (statuses as of 04/06/2022) Resolved Problems Problem Noted Date Resolved Date [...] pain 01/24/2012 01/17/2017 Genetic Sleep Disorder Research Other*[id number] 05/13/2011 04/07/2016 Obstructive sleep apnea 01/18/2011 12/27/19 [...] as of this encounter (statuses as of 04/06/2022) Immunizations Name Administration Dates Next Due COVID-19 [...] encounter Progress Notes * Jonas Atwood V, [facility] - 04/06/2022 2:01 PM EDT Images from the original note were not included. Medication Therapy Disease [facility] - Diabetes Management Progress Note Shaina Bustos, identified by name and date of , is a 66 year old female being seen for diabetesmanagement/education. Patient presents for return diabetic visit. DIABETES: Current diabetic medications: INCREASE: Novolog, Inject 32 units before breakfast, 36units before lunch, and40 units before supper INCREASE: Lantus pen,36units daily Metformin ER 500mg daily Trulicity 4.5mg SQ weekly GFR 84as of 09/23/21 Medication Injection Site: Abdomen Lifestyle: Diet: unchanged History of Treatment Barriers: Lifestyle: wheelchair bound Therapy considerations: None Medication: Metformin IR: GM ? Glucose Review/SMBG: Readings obtained from patient device Hypoglycemia: Does your blood sugar go below 70 mg/dL? No Hyperglycemia symptoms present: none Recent Labs Units 01/24/22 0834 08/19/21 1619 06/10/21 1445 HEMOGLOBIN A1C - [facility] % 6.9* 7.1* 7.4* Recent Labs Units 12/20/21 1448 12/18/21 0000 09/23/21 1724 ESTIMATED GLOMERULAR FILTRATION RATE - [facility] mL/min >90 -- 84 EGFR-OUTSIDE LAB -- 87.3 -- CREATININE - [facility] mg/dL 0.7 -- 0.8 CREATININE-OUTSIDE LAB MG/DL -- 0.72 -- Lab Results Component Value Date/Time CREATININE - [facility] 0.7 12/20/2021 02:48 PM CREATININE - [facility] 0.8 09/23/2021 05:24 PM CREATININE - [facility] 0.7 09/14/2021 03:22 PM CREATININE - [facility] 0.6 09/24/2020 05:16 [...] goal BP Readings from Last 3 Encounters: 03/30/22 89/55 03/29/22 132/64 03/25/22 134/68 Blood pressure at goal: yes HYPERLIPIDEMIA: Patient is taking moderate or high intensity statin: yes HEALTH MAINTENANCE REVIEW: Health Maintenance Due Topic Date Due DXA Scan Never done DIABETES-EYE EXAM 06/12/2019 Pneumococcal Vaccine: 65+ Years (3 - PPSV23 or PCV20) 2020 Zoster Vaccines (3 of 3) 06/23/2020 Depression Screening, Annual for Pts 12 and Over 07/27/2021 DIABETES-FOOT EXAM 04/05/2022 ASSESSMENT & PLAN: ICD-10-CM 1. Type 2 diabetes mellitus with hemoglobin A1c goal of less than 8.0% (HCC) E11.9 BG Readings Blood sugars uncontrolled. BG well above goal at all times. Medications Reviewed current regimen, patient is adherent to regimen. She needs insulin increases of both meal and long acting dosing. Diet, Exercise, Lifestyle She has been eating dessert every other day.. Discussed with patient today. Patient is agreeable to wear Dexcom CGM. Patient aware to contact clinic if any hypoglycemia before next visit. MEDICATION CHANGES: yes, see below; preferred pharmacy: [facility] in [place] Diabetic Medications: INCREASE: Novolog, Inject 35 units before breakfast, 39units before lunch, and45 units before supper INCREASE: Lantus pen,42units daily for 7 days - if BG >180 increase to 45 units Metformin ER 500mg daily Trulicity 4.5mg SQ weekly HEALTH MAINTENANCE INTERVENTIONS: Labs: Up to Date Immunizations: needs pneumococcal and shingles vaccines Foot Exam: Complete with next PCP visit on 04/29 Eye Exam: Complete with next PCP visit on 04/29 Annual Wellness Visit: N/A FOLLOW UP: Return to clinic in 2 weeks 04/20/2022 Jonas Atwood RPh, [facility] Clinical Pharmacist - [facility] 04/06/2022, 2:01 PM documented in this encounter Plan of Treatment Upcoming Encounters Date Type Specialty Care Team Description 04/11/2022 Home Visit Family Medicine Kaylee Barakat, [facility] [address] [place] [address] 04/20/2022 Office Visit Hematology Oncology Tono Sanchez MD [address] [place] [address] 04/20/2022 Office Visit Pharmacy Pharmacist2, [facility] [address] [place] [address] 04/20/2022 Hem/Onc Treatment Hematology Oncology [place], Chair 3 Hem Onc Scenery [address] [facility], [place] [address] 04/26/2022 Telemedicine Endocrinology Alberta Duque PA-C [address] [facility] [place] [address] 04/28/2022 Office Visit Gastroenterology Lyssa Stout CRNP [address] [facility] [place] [address] 04/29/2022 Office Visit Family Medicine Vanita Dunn MD [address] [place] [address] 05/03/2022 PulmDiagnostic Pulmonary Function West, Pft [address] [facility] [place] [address] 05/05/2022 Office Visit Cardiology Quyen Canseco CRNP [address] [place] [address] 05/10/2022 Home Visit [facility] July Poe RN [address] [facility] [place] [address] 05/30/2022 Office Visit Gynecology Obstetrics [facility] [address] [facility] [place] [address] 06/24/2022 Office Visit Sleep Disorders Love Francisco DO [address] [facility] [place] [address] 07/04/2022 Office Visit Gynecology Obstetrics [facility]etta Khan [facility] [address] [facility] [place] [address] 09/14/2022 PulmDiagnostic Pulmonary Function [place], Pft [address] [facility] [place] [address] 09/28/2022 Office Visit Pulmonary Reynaldo Marquez MD [address] [place] [id number] Scheduled Procedures Name Priority Associated Diagnoses Date/Ti [...] of this encounter Implants Implanted Type Area Reed Polisher Device Identifier Shelf Expiration Date Model / Serial / Lot Microtech Sure Clip Implanted:Qty: 2 on 06/03/2020 by Janis Hatch DO at OR [facility] Clip N/A: Colon 04/21/2022 [facility]-F-26-2 35-C-R / / [id number] documented as of this encounter Visit Diagnoses Diagnosis Type 2 diabetes mellitus with hemoglobin A1c goal of less than 8.0% (HCC)- Primary documented in this encounter Advance Directives Documents on File Type Date Recorded Patient Environmental Studies Professor 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 WILL AND HEALTH CARE POA Power of Contract Post Office Clerk 04/29/2021 12:00 AM TOM R OF [facility] POA Advanced Directive 04/01/2021 1:14 [...] Bustos Spouse Emergency Contact Care Teams Chief Telephone Operator Relationship Specialty Start Date End Date Vanita Dunn MD [address] [place] [address] PCP - General Family Medicine 03/16/21 documented as of this encounter
--- OUTSIDE RECORDS SUMMARY | 2023-05-10 18:39 | External Medical Summary | Summary of Care ---
Author Name Unknown Organization [facility] Address [place] [address] Care Team Providers Care Porcelain Enamel Installer Name Role Phone Vanita Dunn MD Primary Care Provid er Reason for Visit * Reason Onset Date Comments [facility]: Maintenance 04/01/2022 u ti Encounter Details Date Type Department Care Team Description 04/01/2022 Scheduled Telephone [facility], [facility] [address] [place] [address] Coordinator, [facility] [address] [place] [address] 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 documented as of this encounter (statuses as of 04/01/2022) Medications Medication Sig Dispensed Refills Start Date End Date Status nystatin (NYSTOP) 374441 UNIT/GM powder Apply topically to affected area 3 times a day. 60 g 1 10/16/2019 Active Dexcom G6 Workforce Development Assistant Device Use as directed. To test blood sugars 4 times a day Dx E11.9 1 Each 0 09/14/2020 Active Dexcom G6 Transmitter Use as directed. To test blood sugars 4 times a day. Change every 90 days. Dx E11.9 1 Each 3 09/14/2020 Active OneTouch Verio In Vitro Strip (Glucose Blood) TESTING once daily 100 Strip 3 10/29/2020 Active OneTouch Delica Plus [id number] TESTING once daily 100 Each 3 10/29/2020 [...] pain 01/24/2012 01/17/2017 Genetic Sleep Disorder Research Other*[id number] 05/13/2011 04/07/2016 Obstructive sleep apnea 01/18/2011 12/27/19 [...] items to be completed and correspondence: Telephonic PAYROLL SECRETARY Pool please work on the following: relay advice given as above Jose Barlow DO Remote [facility] - [facility] 04/01/2022 Scheduled appointments in the next 60 days: Future Appointments-next 60 days Date/Time Provider Specialty Dept Phone 04/06/2022 2:00 PM [facility] Pharmacist1 Pharmacy [phone] 04/11/2022 9:30 AM Kaylee Bar[facility]at[facility] Hvac Sales Representative Family Medicine [phone] 04/20/2022 1:45 PM (Arrive by 1:30 PM) Tono Sanchez MD Hematology Oncology [phone] 04/20/2022 2:15 PM Chair 3 Hem Onc [facility] [place] Hematology Oncology [phone] 04/26/2022 4:00 PM [place] Awad[place]Niya Endocrinology [phone] 04/28/2022 1:30 PM (Arrive by 1:15 PM) ZAK Bolton Gastroenterology [phone] 04/29/2022 2:40 PM (Arrive by 2:25 PM) Vanita Dunn MD Family Medicine [phone] 05/03/2022 10:30 AM [facility] [place] Pulmonary Function [phone] 05/05/2022 1:00 PM (Arrive by 12:45 PM) ZAK Rangel Cardiology [phone] 05/10/2022 8:30 AM July Poe RN [facility] [phone] 05/30/2022 5:00 PM (Arrive by 4:45 PM) Susan Jara MD Gynecology Obstetrics [phone] 06/24/2022 1:20 PM Love Francisco DO Sleep Disorders [phone] 07/04/2022 2:30 PM (Arrive by 2:15 PM) Concetta Khan MD Gynecology Obstetrics [phone] 09/14/2022 2:30 PM [facility] [place] Pul[facility] Function [phone] 09/28/2022 3:20 PM (Arrive by 3:05 PM) Reynaldo Marquez MD Pulmonary [phone] * Telephone Encounter - Tamara Gutierrez LPN - 04/01/2022 12:16 PM EDT [facility] Telephonic Nurse Follow-Up Call Follow [...] Denies any fever or chills [facility] in [facility] Disposition: Routed to [facility] and/or [facility] at Home Care Team for further advice Future Visits Scheduled: Future Appointments-next 60 days Date/Time Provider Specialty Dept Phone 04/06/2022 2:00 PM [facility] Pharmacist1 Pharmacy [phone] 04/11/2022 9:30 AM [facility] Hvac Sales Representative Family Medicine [phone] 04/20/2022 1:45 PM (Arrive by 1:30 PM) Tono Sacnhez MD Hematology Oncology [phone] 04/20/2022 2:15 PM Chair 3 Hem Onc [facility] Hematology Oncology [phone] 04/26/2022 4:00 PM Alberta Duque PA-C Endocrinology [phone] 04/28/2022 1:30 PM (Arrive by 1:15 PM) ZAK Bolton Gastroenterology [phone] 04/29/2022 2:40 PM (Arrive by 2:25 PM) Vanita Dunn MD Family Medicine [phone] 05/03/2022 10:30 AM [facility] [place] [facility] Function [phone] 05/05/2022 1:00 PM (Arrive by 12:45 PM) ZAK Rangel Cardiology [phone] 05/10/2022 8:30 AM July Poe RN [facility] [phone] 05/30/2022 5:00 PM (Arrive by 4:45 PM) Susan Jara MD Gynecology Obstetrics [phone] 06/24/2022 1:20 PM Love Francisco DO Sleep Disorders [phone] 07/04/2022 2:30 PM (Arrive by 2:15 PM) Concetta Khan MD Gynecology Obstetrics [phone] 09/14/2022 2:30 PM [facility] [place] [facility] Function [phone] 09/28/2022 3:20 PM (Arrive by 3:05 PM) Reynaldo Marquez MD Pulmonary [phone] documented in this encounter Plan of Treatment Upcoming Encounters Date Type Specialty Care Team Description 04/06/2022 Office Visit Pharmacy Pharmacist1, [facility] [address] [place] [address] 04/11/2022 Home Visit Family Medicine Kaylee Barakat, [facility] Hvac Sales Representative [address] [place] [address] 04/20/2022 Office Visit Hematology Oncology Tono Sanchez MD 200 [place] [address] 04/20/2022 Hem/Onc Treatment Hematology Oncology Maryellen, Chair [address] On[address] [address] 04/26/2022 Telemedicine Endocrinology Alberta Duque PA-C [address] [place], [place] [id number] 04/28/2022 Office Visit Gastroenterology Lyssa Stout CRNP 132 [place] [address] 04/29/2022 Office Visit Family Medicine Vanita Dunn MD [address] [place] [address] 05/03/2022 PulmDiagnostic Pulmonary Function [place], Pft 132 [place] [address] 05/05/2022 Office Visit Cardiology Quyen Canseco CRNP 132 [place] [address] 05/10/2022 Home Visit [facility] July Poe, RN 132 [place] [address] 05/30/2022 Office Visit Gynecology Obstetrics [facility] [address] 06/24/2022 Office Visit Sleep Disorders Love Francisco DO 132 [facility] [place] [address] 07/04/2022 Office Visit Gynecology Obstetrics Concetta Khan [facility] [address] 09/14/2022 PulmDiagnostic Pulmonary Function [place], Pft [address] [place] [address] 09/28/2022 Office Visit Pulmonary Reynaldo Marquez MD [address] [place] [phone] Scheduled Procedures Name Priority Associated Diagnoses Date/Ti [...] of this encounter Implants Implanted Type Area Frame Stripper And Crusher Device Identifier Shelf Expiration Date Model / Serial / Lot Microtech Sure Clip Implanted:Qty: 2 on 06/03/2020 by Janis Hatch DO at OR [facility] Clip N/A: Colon 04/21/2022 [facility]-F-26-2 35-C-R / / [id number] documented as of this encounter Advance Directives Documents on File Type Date Recorded Patient Fisher Crab 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 WILL AND HEALTH CARE POA Power of Steward/Stewardess Club Car 04/29/2021 12:00 AM TOM R OF PHARMACY SERVICES REPRESENTATIVE HEALTH CARE POA Advanced Directive [...] Syed Bustos Spouse Emergency Contact Care Teams Porcelain Enamel Installer Relationship Specialty Start Date End Date Vanita Dunn MD [address] [place] [address] PCP - General Family Medicine 03/16/21 documented as of this encounter
--- OUTSIDE RECORDS SUMMARY | 2023-05-10 18:40 | External Medical Summary | Summary of Care ---
Author Name Unknown Organization [place] [address] Care Team Providers Care Park Attendant Name Role Phone Vanita Dunn MD Primary Care Provid er Reason for Visit * Reason Comments IV Therapy Venofer Encounter Details Date Type Department Care Team Description 03/30/2022 Hem/Onc Treatment Hematology/Oncology Treatment, [place] [address] [place] [address] Maryellen, Chair 5 Hem Onc [place] [address] [facility] [place] [address] Iron deficiency anemia due to chronic blood loss* 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 documented as of this encounter (statuses as of 03/30/2022) Medications Medication Sig Dispensed Refills Start Date End Date Status nystatin (NYSTOP) 403655 UNIT/GM powder Apply topically to affected area 3 times a day. 60 g 1 10/16/2019 Active Dexcom G6 Medical Equipment Repair Technician Device Use as directed. To [...] Strip 3 10/29/2020 Active OneTouch Delica Plus [id number] TESTING once daily 100 Each 3 10/29/2020 [...] ([facility]LY [facility]) inject 4.5mg (1 pen) [...] as of this encounter (statuses as of 03/30/2022) Active Problems Problem Noted Date Chronic diastolic [...] as of this encounter (statuses as of 03/30/2022) Resolved Problems Problem Noted Date Resolved Date [...] pain 01/24/2012 01/17/2017 Genetic Sleep Disorder Research Other*[id number] 05/13/2011 04/07/2016 Obstructive sleep apnea 01/18/2011 12/27/19 [...] as of this encounter (statuses as of 03/30/2022) Immunizations Name Administration Dates Next Due COVID-19 [...] Sign Reading Time Taken Comments Blood Pressure 89/55 03/30/2022 2:05 PM EDT Pulse 91 03/30/2022 2:05 PM EDT Temperature - - Respiratory Rate 20 03/30/2022 2:05 PM EDT Oxygen Saturation - - Inhaled [...] as of this encounter Nursing Notes * Cathy Patton RN - 03/30/2022 4:32 PM EDT Venofer infusion is complete. Pt tolerated well. Goals: pt to remain free from injury Possible barriers to meeting goals: pt does not ambulate, in electric WC Stability of the patient: Moderately unstable - medium risk of patient condition declining or worsening Summary regarding today's goals: Met: pt remained free from injury Pt discharged in stable condition. * Cathy Patton RN - 03/30/2022 4:31 PM EDT Pt arrived today for Venofer infusion. Safety and Risk for Injury Patient will remain free from injury. Ensure appropriate safety devices are available. Provide and maintain safe environment.\ documented in this encounter Plan of Treatment Upcoming Encounters Date Type Specialty Care Team Description 03/31/2022 Scheduled Telephone [facility] [place], [address] [place] [address] 04/01/2022 Scheduled Telephone [facility] [place], [place] [address] [facility] [place] [address] 04/06/2022 Office Visit Pharmacy Pharmacist1, [facility] [address] [place] [address] 04/11/2022 Home Visit Family Medicine Kaylee Barakat, [facility] Vp Talent Management [address] [place] [address] 04/20/2022 Office Visit Hematology Oncology Tono Sanchez MD [address] [place] [address] 04/20/2022 Hem/Onc Treatment Hematology Oncology [place], Chair 3 Hem Onc [facility] [address] [place] [address] 04/26/2022 Telemedicine Endocrinology Alberta Duque PA-C [address] [place], [place] [phone] 04/28/2022 Office Visit Gastroenterology Lyssa Stout CRNP 132 [facility] [place] [address] 04/29/2022 Office Visit Family Medicine Vanita Dunn MD [address] [place] [address] 05/03/2022 PulmDiagnostic Pulmonary Function [place], [address] [place] [address] 05/05/2022 Office Visit Cardiology Quyen Canseco CRNP [address] [place] [address] 05/10/2022 Home Visit [facility] July Poe, RN 132 [facility] [place] [address] 05/30/2022 Office Visit Gynecology Obstetrics Susan [facility] MD [facility] [place] [id number] 06/24/2022 Office Visit Sleep Disorders Love Francisco DO 132 [facility] [place] [address] 07/04/2022 Office Visit Gynecology Obstetrics Concetta Khan MD [address] [facility] [place] [phone] 09/14/2022 PulmDiagnostic Pulmonary Function [place], Pft [address] [facility] [place] [address] 09/28/2022 Office Visit Pulmonary Reynaldo Marquez MD [address] [place] [phone] Scheduled Procedures Name Priority Associated Diagnoses Date/Ti me ESOPHAGOGASTRODUODENOSCOPY ( EGD), FLEXIBLE, TRANSORAL, DIAGNOSTIC Recall Esophagitis COLONOSCOPY FLEXIBLE PROXIMAL DIAGNOSTIC Recall History of colonic polyps Health Maintenance Due Date Last Done Comments DXA Scan 1955 DIABETES-EYE EXAM 06/12/2019 06/12/2018, , 06/12/2018, Additional history exists DIABETES-URINE ALBUMIN/CREATININE EVERY 12 MONTHS 01/12/2020 01/11/2019, 02/03/2017, 08/25/2015, Additional history exists Pneumococcal Vaccine: 65+ Years [...] 12/20/2022 12/20/2021, 12/18/2021, 09/23/2021, Additional history exists COLONOSCOPY-EVERY 5 YRS AGES [...] of this encounter Implants Implanted Type Area Control Room Technician Device Identifier Shelf Expiration Date Model / Serial / Lot Microtech Sure Clip Implanted:Qty: 2 on 06/03/2020 by Janis Hatch DO at OR [facility] Clip N/A: Colon 04/21/2022 [facility]-F-26-2 35-C-R / / [id number] documented as of this encounter Visit Diagnoses [...] ONCE PRN Other, Hypersensitivity Reaction, Starting on Mon03/30/22 at 1408, Until [place] 03/31/22 at 1407, For 24 hours EPINEPHrine 1 MG/ML inj 0.3 mg 0.3 mg, Intramuscular, ONCE PRN Other, Hypersensitivity Reaction or Anaphylaxis, Starting on Mon03/30/22 at 1408, Until [place] 03/31/22 at 1407, For 24 hours hEParin 100 UNIT/ML Lock Flush inj 500 Units 500 Units (5 mL), IV Lock, PRN Other, IV Flush, Starting on Mon03/30/22 at 1408, Until [place] 03/31/22 at 1407, For 24 hours, Do not flush if lock, PICC, or central line not in place; IV infusing or unable to flush. Given 03/30/2022 3:50 PM EDT 500 Units Hydrocortisone Na Succinate PF (Solu-Cortef) inj 100 mg 100 mg, IV Push, ONCE PRN Other, Hypersensitivity Reaction, Starting on Mon03/30/22 at 1408, Until [place] 03/31/22 at 1407, For 24 hours NSS infusion 500 mL, Intravenous, at 50 mL/hr, CONTINUOUS, Starting on Mon03/30/22 at 1515, Until [place] 03/31/22 at 0114 Start Infusion 03/30/2022 2:15 PM EDT 500 mL 50 mL/hr sodium chloride 0.9 % flush/inj 10 mL 10 mL, IV Push, PRN Other, IV Flush, Starting on Mon03/30/22 at 1408, Until [place] 03/31/22 at 1407, For 24 hours, Do not flush if lock, PICC, or central line not in place; IV infusing or unable to flush. Given 03/30/2022 3:50 PM EDT 10 mL Inactive Administered Medications - up to 3 most recent administrations Medication Order MAR Action Action Date Dose Rate Site Iron Sucrose (Venofer) 300 mg in NSS 250 mL ivpb 300 mg, IV Piggyback, ONCE, 1 dose, On Mon03/30/22 at 1545, Administer over 90 Minutes Start Infusion 03/30/2022 2:15 PM EDT 300 mg 166.67 mL/hr documented in this encounter Advance Directives Documents on File Type Date Recorded Patient Product Analyst Expl anation Advanced Directive service a kerir default Advanced Directive Advanced Directive Advanced Directive [...] WILL AND HEALTH CARE POA Power of Solid Tire Tuber Machine Operator 04/29/2021 12:00 AM TOM R OF BRUSH HOLDER INSPECTOR [facility] CARE POA Advanced Directive 04/01/2021 1:14 PM [...] Name Relationship Healthcare Agent [facility] Communication Syed Bustos Spouse Emergency Contact Care Teams Park Attendant Relationship Specialty Start Date End Date Vanita Dunn MD [address] [place] [phone] PCP - General Family Medicine 03/16/21 documented as of this encounter
--- OUTSIDE RECORDS SUMMARY | 2023-05-10 18:40 | External Medical Summary | Summary of Care ---
Author Name Unknown Organization [facility] Address [place] [address] Care Team Providers Care Curtain Stitcher Name Role Phone Vanita Dunn MD Primary Care Provid er Reason for Visit * Reason Onset Date Comments [facility]: Maintenance 04/01/2022 u ti Encounter Details Date Type Department Care Team Description 04/01/2022 Scheduled Telephone [facility], [facility] [address] [place] [address] Coordinator, [facility] [address] [place] [address] 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 documented as of this encounter (statuses as of 04/01/2022) Medications Medication Sig Dispensed Refills Start Date End Date Status nystatin (NYSTOP) 426890 UNIT/GM powder Apply topically to affected area 3 times a day. 60 g 1 10/16/2019 Active Dexcom G6 Master Brewer Device Use as directed. To test blood sugars 4 times a day Dx E11.9 1 Each 0 09/14/2020 Active Dexcom G6 Transmitter Use as directed. To test blood sugars 4 times a day. Change every 90 days. Dx E11.9 1 Each 3 09/14/2020 Active OneTouch Verio In Vitro Strip (Glucose Blood) TESTING once daily 100 Strip 3 10/29/2020 Active OneTouch Delica Plus [id number] TESTING once daily 100 Each 3 10/29/2020 [...] ([facility]) inject 4.5mg (1 pen) under the [...] pain 01/24/2012 01/17/2017 Genetic Sleep Disorder Research Other*[id number] 05/13/2011 04/07/2016 Obstructive sleep apnea 01/18/2011 12/27/19 [...] items to be completed and correspondence: Telephonic TELECOM SPECIALIST Pool please work on the following: relay advice given as above Jose Barlow DO Remote Medical Command - [facility] 04/01/2022 Scheduled appointments in the next 60 days: Future Appointments-next 60 days Date/Time Provider Specialty Dept Phone 04/06/2022 2:00 PM [facility] Pharmacist1 Pharmacy [phone] 04/11/2022 9:30 AM Kaylee Barakat, [facility] Review Coordinator Family Medicine [phone] 04/20/2022 1:45 PM (Arrive by 1:30 PM) Tono Sanchez MD Hematology Oncology [phone] 04/20/2022 2:15 PM Chair 3 Hem Onc [facility] [place] Hematology Oncology [phone] 04/26/2022 4:00 PM [place] Awad[place]Niya Endocrinology [phone] 04/28/2022 1:30 PM (Arrive by 1:15 PM) ZAK Bolton Gastroenterology [phone] 04/29/2022 2:40 PM (Arrive by 2:25 PM) Vanita Dunn MD Family Medicine [phone] 05/03/2022 10:30 AM [facility] [place] Pulmonary Function [phone] 05/05/2022 1:00 PM (Arrive by 12:45 PM) ZAK Rangel Cardiology [phone] 05/10/2022 8:30 AM July Poe RN [facility] [phone] 05/30/2022 5:00 PM (Arrive by 4:45 PM) Susan Jara MD Gynecology Obstetrics [phone] 06/24/2022 1:20 PM Love Francisco DO Sleep Disorders [phone] 07/04/2022 2:30 PM (Arrive by 2:15 PM) Concetta Khan MD Gynecology Obstetrics [phone] 09/14/2022 2:30 PM [facility] [place] [facility] Function [phone] 09/28/2022 3:20 PM (Arrive by 3:05 PM) Reynaldo Marquez MD Pulmonary [phone] * Telephone Encounter - Tamara Gutierrez LPN [...] in [facility] Disposition: [facility]ed [facility] and[facility]or [facility] at Home Care Team for further advice Future Visits Scheduled: Future Appointments-next 60 days Date/Time Provider Specialty Dept Phone 04/06/2022 2:00 PM [facility] Pharmacist1 Pharmacy [phone] 04/11/2022 9:30 AM Kaylee Barakat [facility] Review Coordinator Family Medicine [phone] 04/20/2022 1:45 PM (Arrive by 1:30 PM) Tono Sanchez MD Hematology Oncology [phone] 04/20/2022 2:15 PM Chair 3 Hem Onc [facility] Hematology Oncology [phone] 04/26/2022 4:00 PM Alberta Duque PA-C Endocrinology [phone] 04/28/2022 1:30 PM (Arrive by 1:15 PM) ZAK [facility] Gastroenterology [phone] 04/29/2022 2:40 PM (Arrive by 2:25 PM) Vanita Dunn MD Family Medicine [phone] 05/03/2022 10:30 AM [facility] [place] Pul[facility] Function [phone] 05/05/2022 1:00 PM (Arrive by 12:45 PM) ZAK Rangel Cardiology [phone] 05/10/2022 8:30 AM July Poe RN [facility] [phone] 05/30/2022 5:00 PM (Arrive by 4:45 PM) Susan Jara MD Gynecology Obstetrics [phone] 06/24/2022 1:20 PM Love Francisco DO Sleep Disorders [phone] 07/04/2022 2:30 PM (Arrive by 2:15 PM) Concetta Khan MD Gynecology Obstetrics [phone] 09/14/2022 2:30 PM [facility] [place] [facility] Function [phone] 09/28/2022 3:20 PM (Arrive by 3:05 PM) Reynaldo Marquez MD Pulmonary [phone] documented in this encounter Plan of Treatment Upcoming Encounters Date Type Specialty Care Team Description 04/06/2022 Office Visit Pharmacy Pharmacist1, [facility] [address] [place] [address] 04/11/2022 Home Visit Family Medicine Kaylee Barakat, [facility] Review Coordinator [address] [place] [address] 04/20/2022 Office Visit Hematology Oncology Tono Sanchez MD 200 [place] [address] 04/20/2022 Hem/Onc Treatment Hematology Oncology [place], Chair 3 Hem Onc [address] [address] 04/26/2022 Telemedicine Endocrinology Alberta Duque PA-C [address] [place], [place] [phone] 04/28/2022 Office Visit Gastroenterology Lyssa Stout CRNP 132 [place] [address] 04/29/2022 Office Visit Family Medicine Vanita Dunn MD [address] [place] [address] 05/03/2022 PulmDiagnostic Pulmonary Function West, Pft [address] [place] [address] 05/05/2022 Office Visit Cardiology Quyen Canseco CRNP [address] [place] [address] 05/10/2022 Home Visit [facility] July Poe, RN [address] [place] [address] 05/30/2022 Office Visit Gynecology Obstetrics Susan [facility] [address] 06/24/2022 Office Visit Sleep Disorders Love Francisco DO 132 [facility] [place] [address] 07/04/2022 Office Visit Gynecology Obstetrics Concetta Khan MD [address] [facility] [address] 09/14/2022 PulmDiagnostic Pulmonary Function [place], Pft [address] [place] [address] 09/28/2022 Office Visit Pulmonary Reynaldo Marquez MD [address] [place] [phone] Scheduled Procedures Name Priority Associated Diagnoses Date/Ti [...] of this encounter Implants Implanted Type Area Telemarketing Sales Representative Device Identifier Shelf Expiration Date Model / Serial / Lot Microtech Sure Clip Implanted:Qty: 2 on 06/03/2020 by Janis Hatch DO at OR [facility] Clip N/A: Colon 04/21/2022 [facility]-F-26-2 35-C-R / / [id number] documented as of this encounter Advance Directives Documents on File Type Date Recorded Patient Supervisor Color Paste Mixing 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 WILL AND HEALTH CARE POA Power of Organ Pipe Maker Metal 04/29/2021 12:00 AM TOM R OF TELEMETRY TECHNICIAN HEALTH CARE POA Advanced Directive 04/01/2021 [...] Syed Bustos Spouse Emergency Contact Care Teams Curtain Stitcher Relationship Specialty Start Date End Date Vanita Dunn MD [address] [place] [address] PCP - General Family Medicine 03/16/21 documented as of this encounter
--- OUTSIDE RECORDS SUMMARY | 2023-05-10 18:40 | External Medical Summary | Summary of Care ---
Author Name Unknown Organization [facility] Address [place] [address] Care Team Providers Care Ceramist Name Role Phone Vanita Dunn MD Primary Care Provid er Reason for Visit * Reason Onset Date Comments [facility]: Maintenance 03/31/2022 Encounter Details Date Type Department Care Team Description 03/31/2022 Scheduled Telephone [facility], [facility] [address] [facility] [place] [address] Coordinator, [facility] [address] [facility] [place] [address] 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 documented as of this encounter (statuses as of 03/31/2022) Medications Medication Sig Dispensed Refills Start Date End Date Status nystatin (NYSTOP) 745055 UNIT/GM powder Apply topically to affected area 3 times a day. 60 g 1 10/16/2019 Active Dexcom G6 Mason Liner Device Use as directed. To test blood sugars 4 times a day Dx E11.9 1 Each 0 09/14/2020 Active Dexcom G6 Transmitter Use as directed. To test blood sugars 4 times a day. Change every 90 days. Dx E11.9 1 Each 3 09/14/2020 Active OneTouch Verio In Vitro Strip (Glucose Blood) TESTING once daily 100 Strip 3 10/29/2020 Active OneTouch Delica Plus [id number] TESTING once daily 100 Each 3 10/29/2020 [...] as of this encounter (statuses as of 03/31/2022) Active Problems Problem Noted Date Chronic diastolic [...] as of this encounter (statuses as of 03/31/2022) Resolved Problems Problem Noted Date Resolved Date [...] pain 01/24/2012 01/17/2017 Genetic Sleep Disorder Research Other*[id number] 05/13/2011 04/07/2016 Obstructive sleep apnea 01/18/2011 12/27/19 [...] as of this encounter (statuses as of 03/31/2022) Immunizations Name Administration Dates Next Due COVID-19 [...] Telephone Encounter - Dorothy Walker LPN - 03/31/2022 10:47 AM EDT Pt informed On for a phone call tomorrow * Telephone Encounter - Jose Barlow DO - 03/31/2022 10:44 AM EDT With NEG Nitrites, I would await fro final cx, especially as the symptoms seem to slowly be improving Jose Barlow DO * Telephone Encounter - Dorothy Walker LPN - 03/31/2022 10:32 AM EDT [facility] Telephonic Nurse Follow-Up Call Follow Up Call Type: 24 hour follow up Acute issue requiring follow-up call: Other: urine results Objective: VITALS ACROSS ENCOUNTERS 03/30/2022 03/29/2022 03/25/2022 [...] Status: No change in symptoms Current Concerns: Culture still in process UA back and abnormal Spoke with patient Aware Culture still in process Not much dysuria anymore Denies any frequency Slight hematuria Slight burning when stream is done Denies any new low abdominal pain or flank pain Denies any fever/chills Got iron infusion yesterday Sending to [facility] to review UA Is abx warranted or should we wait for culture? Disposition: Routed to [facility] and/or [facility] Team for further advice Future Visits Scheduled: Future Appointments-next 60 days Date/Time Provider Specialty Dept Phone 03/31/2022 12:00 PM [facility] [phone] 04/01/2022 11:30 AM [facility] [phone] 04/06/2022 2:00 PM [facility] Pharmacist1 Pharmacy [phone] 04/11/2022 9:30 AM Kaylee Barakat [facility] Tube Filler Family Medicine [phone] 04/20/2022 1:45 PM (Arrive by 1:30 PM) Tono Sanchez MD Hematology Oncology [phone] 04/20/2022 2:15 PM Chair 3 Hem Onc [facility] Hematology Oncology [phone] 04/26/2022 4:00 PM Alberta Duque PA-C Endocrinology [phone] 04/28/2022 1:30 PM (Arrive by 1:15 PM) ZAK Bolton Gastroenterology [phone] 04/29/2022 2:40 PM (Arrive by 2:25 PM) Vanita Dunn MD Family Medicine [phone] 05/03/2022 10:30 AM Pft Andreas Pulmonary Function [phone] 05/05/2022 1:00 PM (Arrive by 12:45 PM) ZAK Rangel Cardiology [phone] 05/10/2022 8:30 AM July Peo RN [facility] [phone] 05/30/2022 5:00 PM (Arrive by 4:45 PM) Susan Jara MD Gynecology Obstetrics [phone] 06/24/2022 1:20 PM Love Francisco, Sleep Disorders [phone] 07/04/2022 2:30 PM (Arrive by 2:15 PM) Concetta Khan MD Gynecology Obstetrics [phone] 09/14/2022 2:30 PM [facility] Pulmonary Function [phone] 09/28/2022 3:20 PM (Arrive by 3:05 PM) Reynaldo Marquez MD Pulmonary [phone] Dorothy Walker LPN Telehealth Scheduling Guidelines Current Health Monitor Ordering Guidelines documented in this encounter Plan of Treatment Upcoming Encounters Date Type Specialty Care Team Description 04/01/2022 Scheduled Telephone [facility], Brady Chavez [address] [place] [address] 04/06/2022 Office Visit Pharmacy Pharmacist1, [facility] [address] [place] [address] 04/11/2022 Home Visit Family Medicine Kaylee Barakat, [facility] Tube Filler [address] [place] [address] 04/20/2022 Office Visit Hematology Oncology Tono Sanchez MD [address] [place] [address] 04/20/2022 Hem/Onc Treatment Hematology Oncology [place], Chair 3 Hem On[address] [address] 04/26/2022 Telemedicine Endocrinology Alberta Duque PA-C [address] [place] [address] 04/28/2022 Office Visit Gastroenterology Lyssa Stout CRNP [address] [place] [address] 04/29/2022 Office Visit Family Medicine Vanita Dunn MD [address] [place] [address] 05/03/2022 PulmDiagnostic Pulmonary Function West, Pft [address] [place] [address] 05/05/2022 Office Visit Cardiology Quyen Canseco CRNP [address] [place] [address] 05/10/2022 Home Visit [facility] July Poe, RN [address] [place] [address] 05/30/2022 Office Visit Gynecology Obstetrics Susan Jara [facility] [address] [facility] [place] [address] 06/24/2022 Office Visit Sleep Disorders Love Francisco, DO [address] [place] [address] 07/04/2022 Office Visit Gynecology Obstetrics [facility]etta [facility] [phone] 09/14/2022 PulmDiagnostic Pulmonary Function West, Pft [address] [place] [address] 09/28/2022 Office Visit Pulmonary [facility] [address] [id number] Scheduled Procedures Name Priority Associated Diagnoses Date/Ti [...] of this encounter Implants Implanted Type Area Legend Maker Device Identifier Shelf Expiration Date Model / Serial / Lot Microtech Sure Clip Implanted:Qty: 2 on 06/03/2020 by Janis Hatch DO at OR [facility] Clip N/A: Colon 04/21/[address] [facility]-F-26-2 35-C-R / / [id number] documented as of this encounter Advance Directives Documents on File Type Date Recorded Patient Elevator Service Technician 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 WILL AND HEALTH CARE POA Power of Propeller Mechanic 04/29/2021 12:00 AM [facility] R OF [facility] POA Advanced Directive 04/01/2021 1:14 PM Advanced [...] Syed Bustos Spouse Emergency Contact Care Teams Ceramist Relationship Specialty Start Date End Date Vanita Dunn MD [address] [place] [address] PCP - General Family Medicine 03/16/21 documented as of this encounter
--- OUTSIDE RECORDS SUMMARY | 2023-05-10 18:41 | External Medical Summary ---
Author Name Unknown Address Unknown Organization K01:LABORATORY [facility] - [address] [place] [address] Laboratory Report Ordering Provider Test Date Status SOFI MCDUFFIE 03/30/2022 14:02:43 Final Observation Date Value Abnormality Reference (Units) Status Bacteria identified in Unspecified specimen by Culture 03/30/2022 14:02:43 Multiple juan manuel suggests contamination or colonization Final Performing Location [facility] [address] [facility] [place] [address]
--- OUTSIDE RECORDS SUMMARY | 2023-05-10 18:41 | External Medical Summary ---
Author Name Unknown Address Unknown Organization K01:LABORATORY [facility] [place] - [address] [place] [address] Laboratory Report Ordering Provider Test Date Status MICAELA VARMA 03/30/2022 14:02:43 Final Observation Date Value Abnormality Reference (Units ) Status Albumin, Urine 03/30/2022 14:02:43 19.14 (mg/dL) Final Creatinine, Urine 03/30/2022 14:02:43 131 (mg/dL) Final Albumin/Creatinine [Mass Ratio] in Urine 03/30/2022 14:02:43 146 Above high normal <30 (mg/g Creat) Final Performing Location LABORATORY [facility] - [address] [place] [address]
--- OUTSIDE RECORDS SUMMARY | 2023-05-10 18:41 | External Medical Summary ---
Author Name Unknown Address Unknown Organization K01:[facility] [place] [address] [facility] [place] [address] Laboratory Report Ordering Provider Test Date Status SOFI MCDUFFIE 03/30/2022 14:02:43 Final Observation Date Value Abnormality Reference (Units ) Status Color of Urine by Auto 03/30/2022 14:02:43 Yellow Colorless, Light Yellow, Yellow, Dark Yellow Final Clarity, Urine 03/30/2022 14:02:43 Cloudy Abnormal Clear Final Glucose [Mass/volume] in Urine by Automated test strip 03/30/2022 14:02:43 Negative Negative (mg/dL) Final Bilirubin.total [Presence] in Urine by Automated test strip 03/30/2022 14:02:43 Negative Negative Final Ketones [Mass/volume] in Urine by Automated test strip 03/30/2022 14:02:43 Negative Negative (mg/dL) Final Specific gravity, Urine 03/30/2022 14:02:43 1.028 1.003-1.030 Final Hemoglobin [Presence] in Urine by Automated test strip 03/30/2022 14:02:43 Large Abnormal Negative Final pH, Urine 03/30/2022 14:02:43 6.0 5.0-7.5 (Units) Final Protein [Mass/volume] in Urine by Automated test strip 03/30/2022 14:02:43 100 Abnormal Negative (mg/dL) Final Urobilinogen [Mass/volume] in Urine by Automated test strip 03/30/2022 14:02:43 2.0 Abnormal Normal (mg/dL) Final Nitrite [Presence] in Urine by Automated test strip 03/30/2022 14:02:43 Negative Negative Final Leukocyte esterase [Presence] in Urine by Automated test strip 03/30/2022 14:02:43 Large Abnormal Negative Final RBC, Urine 03/30/2022 14:02:43 20-29 Abnormal 0-2 (/HPF) Final WBC, Urine 03/30/2022 14:02:43 50+ Abnormal 0-2 (/HPF) Final Bacteria [#/area] in Urine sediment by Microscopy high power field 03/30/2022 14:02:43 >200 Abnormal 0-25 (/HPF) Final Calcium oxalate crystals [#/area] in Urine sediment by Microscopy high power field 03/30/2022 14:02:43 50+ Abnormal None (/HPF) Final Hyaline casts, Urine 03/30/2022 14:02:43 10-19 Abnormal None (/LPF) Final CULTURE, URINE - [facility] 03/30/2022 14:02:43 Final Performing Location [facility] [address] [facility] [address]
--- OUTSIDE RECORDS SUMMARY | 2023-05-10 18:41 | External Medical Summary | Summary of Care ---
Author Name Unknown Organization [facility] Address [place] [address] Care Team Providers Care Nurse Reviewer Name Role Phone Vanita Dunn MD Primary Care Provid er Reason for Visit * Reason Comments Outpatient Testing Encounter Details Date Type Department Care Team Description 03/30/2022 Laboratory Laboratory [facility] [address] [place] [address] Pod3, Specimen Drop Off [facility] [address] [place] [address] Dysuria; Screening for nephropathy 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 documented as of this encounter (statuses as of 03/30/2022) Medications Medication Sig Dispensed Refills Start Date End Date Status nystatin (NYSTOP) 586799 UNIT/GM powder Apply topically to affected area 3 times a day. 60 g 1 10/16/2019 Active Dexcom G6 Hardwood Finisher Device Use as directed. To test blood sugars 4 times a day Dx E11.9 1 Each 0 09/14/2020 Active Dexcom G6 Transmitter Use as directed. To test blood sugars 4 times a day. Change every 90 days. Dx E11.9 1 Each 3 09/14/2020 Active OneTouch Verio In Vitro Strip (Glucose Blood) TESTING once daily 100 Strip 3 10/29/2020 Active OneTouch Delica Plus [id number] TESTING once daily 100 Each 3 10/29/2020 [...] pain 01/24/2012 01/17/2017 Genetic Sleep Disorder Research Other*[id number] 05/13/2011 04/07/2016 Obstructive sleep apnea 01/18/2011 12/27/19 [...] at Date Recorded Female 04/22/2020 3:35 PM EDT Job Start Date Occupation Industry Not on [...] Team Description 03/31/2022 Scheduled Telephone [facility], [facility] [address] [place] [address] 04/01/2022 Scheduled Telephone [facility], [facility] [address] [place] [address] 04/06/2022 Office Visit Pharmacy Pharmacist1, [facility] [address] [place] [address] 04/11/2022 Home Visit Family Medicine Kaylee Barakat, [facility] Cook Room Supervisor [address] [place] [address] 04/20/2022 Office Visit Hematology Oncology Tono Sanchez MD [address] [place] [address] 04/20/2022 Hem/Onc Treatment Hematology Oncology [place], Chair 3 Hem Onc [facility] [address] [place] [address] 04/26/2022 Telemedicine Endocrinology Alberta Duque PA-C [address] [place] [address] 04/28/2022 Office Visit Gastroenterology Lyssa Stout CRNP [address] [facility] [place] [address] 04/29/2022 Office Visit Family Medicine MonaVanita MD [address], [place] [phone] 05/03/2022 PulmDiagnostic Pulmonary Function [place], Pft [address] [facility] [place] [address] 05/05/2022 Office Visit Cardiology Quyen Canseco CRNP [address] [facility] [place] [address] 05/10/2022 Home Visit [facility] July Poe RN [address] [facility] [place] [address] 05/30/2022 Office Visit Gynecology [facility]stetrics [facility] [address] 06/24/2022 Office Visit Sleep Disorders Love Francisco DO [address] [facility] [place] [address] 07/04/2022 Office Visit Gynecology Obstetrics Con[facility]etta Khan [facility] [address] [facility] [address] 09/14/2022 PulmDiagnostic Pulmonary Function West, Pft [address] [facility] [place] [address] 09/28/2022 Office Visit Pulmonary Reynaldo Marquez MD [address] [place] [phone] Pending Results Name Type Priority Associated Diagnoses Date /Time URINALYSIS, REFLEX TO CULTURE (NOT FOR NEUTROPENIC PATIENTS) Lab Routine Dysuria 03/30/2022 2:02 PM EDT ALBUMIN / CREATININE RATIO, URINE Lab Routine Screening for nephropathy 03/30/2022 2:02 PM EDT URINALYSIS, REFLEX TO CULTURE (CUP ONLY) Lab Routine Dysuria 03/30/2022 2:02 PM EDT URINALYSIS, REFLEX TO CULTURE Lab Routine Dysuria 03/30/2022 2:02 PM EDT Scheduled Procedures Name Priority Associated [...] of this encounter Implants Implanted Type Area Senior Java Architect Device Identifier Shelf Expiration Date Model / Serial / Lot Microtech Sure Clip Implanted:Qty: 2 on 06/03/2020 by Janis Hatch DO at OR [facility] Clip N/A: Colon 04/21/2022 [facility]-F-26-2 35-C-R / / [id number] documented as of this encounter Visit Diagnoses Diagnosis Dysuria Screening for nephropathy documented in this encounter Advance Directives Documents on File Type Date Recorded Patient 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
--- OUTSIDE RECORDS SUMMARY | 2023-05-10 18:41 | External Medical Summary | Summary of Care ---
Author Name Unknown Organization [facility] Address [place] [address] Care Team Providers Care Parts Room Clerk Name Role Phone Vanita Dunn MD Primary Care Provid er Reason for Visit * Reason Comments [facility]: Maintenance Encounter Details Date Type Department Care Team Description 03/29/2022 [facility] Visit [facility], [facility] 132 [facility] [place] [address] July Poe, RN 132 [facility] [place] [address] 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 documented as of this encounter (statuses as of 03/30/2022) Medications Medication Sig Dispensed Refills Start Date End Date Status nystatin (NYSTOP) 345597 UNIT/GM powder Apply topically to affected area 3 times a day. 60 g 1 10/16/2019 Active Dexcom G6 Superintendent Geophysical Laboratory Device Use as directed. To test blood sugars 4 times a day Dx E11.9 1 Each 0 09/14/2020 Active Dexcom G6 Transmitter Use as directed. To test blood sugars 4 times a day. Change every 90 days. Dx E11.9 1 Each 3 09/14/2020 Active OneTouch Verio In Vitro Strip (Glucose Blood) TESTING once daily 100 Strip 3 10/29/2020 Active OneTouch Delica Plus [id number] TESTING once daily 100 Each 3 10/29/2020 [...] 7.0% ([facility]) inject 4.5mg (1 pen) under the skin [...] pain 01/24/2012 01/17/2017 Genetic Sleep Disorder Research Other*[id number] 05/13/2011 04/07/2016 Obstructive sleep apnea 01/18/2011 12/27/19 [...] Sign Reading Time Taken Comments Blood Pressure 132/64 03/29/2022 9:51 AM EDT Pulse 69 03/29/2022 9:51 AM EDT Temperature 36.6 C (97.8 F) 03/29/2022 9:51 AM ED T Respiratory Rate 20 03/29/2022 9:51 AM EDT Oxygen Saturation 93% 03/29/2022 9:51 AM EDT Inhaled Oxygen Concentration - - [...] Progress Notes * July Poe RN - 03/29/2022 9:32 AM EDT [facility] Labor Relations Worker Visit Date: 03/29/2022 Time: 9:32 AM Name: Shaina Bustos : 1955 Current Concerns: Pt seen for return RNCM visit Rash and irritation on face from cpap mask is resolved - cg reports it is intermittent She does report that it seem s to not fit correctly and leaks Pulmonary had arranged for DME to do re-fitting- they are waiting on DME to call to schedule Had mirena IUD placed on 02/13 Vaginal bleeding continues - cg feels it is about the same Per obs/gyne f/u note, mirena IUD takes 3-6 months to see full effects Has f/u with gyne in 3 months CG reports urine is foul smelling and pt reports some dysuria intermittently. Pt has had these symptoms before and has hx of UTI with MRSA TT to [facility] to get order for urine specimen. CG has hat and cups in home and able to obtain and take to lab. Blood sugars have been high - mostly in the high 200's up to low 400's Unable to see past readings on glucometer (dexcom) CG reports she checks around 8 am each morning and for past 2 weeks has been in the 400's in the mornings Physical Exam: BP 132/64 | Pulse 69 | Temp 36.6 C (97.8 F) | Resp 20 | SpO2 93% Pain 0 Physical Exam Constitutional: General: She is not in acute distress. Appearance: She is obese. Cardiovascular: Rate and Rhythm: Normal rate and regular rhythm. Pulses: Normal pulses. Heart sounds: Normal heart sounds. Pulmonary: Effort: Pulmonary effort is normal. Breath sounds: Normal breath sounds. Musculoskeletal: Right lower leg: Edema present. Left lower leg: Edema present. Skin: General: Skin is warm and dry. Neurological: Mental Status: She is alert and oriented to person, place, and time. Problems/Symptoms: Review of Systems Constitutional: Negative. HENT: Negative. Eyes: Negative. Respiratory: Negative. Cardiovascular: Positive for leg swelling. Gastrointestinal: Negative. Genitourinary: Positive for dysuria (intermittent) and vaginal bleeding (mild). Musculoskeletal: Positive for arthralgias and gait problem. Skin: Negative. Psychiatric/Behavioral: Negative. Medication Reconciliation: (See medication list) Does patient take medications as ordered: Yes Patient Well Being: PHQ2/9: No questionnaires available. No change in living situation Denies falls [facility]-10 Completed this Visit: No. Routine visit and No falls since last visit Advanced Care Planning: Living Will. and Healthcare POA. Patient's Goals of Care: 1. Remain at home 2. Stay out of hospital Reinforcement/Education: DIABETES: -Blood sugar testing schedule: [...] Use nebs 4x a day Frequent repositioning Finish entire course of abx Low Na , CCD diet Cg 5 days a week for 8-9 hrs each day Svetlana lift for transfers F/U with gyne in 3 months F/U with heme/onc Cg to obtain urine specimen and take to lab Home Interventions Provided: Lab/Imaging Ordered UA with reflex to culture Home Intervention: Other; Eval Consulted PCP/Specialist Reinforced current Plan of Care, including self-management and medication regimen Patient's 'Red Flags': 1. Increased SOB 2. Change in mental status 3. Fever/chills Patient Needs to Remember: Call [facility] at with any new or [...] visits & schedule home visit with care meat service team member(s)as indicated. Provider is in agreement with Plan of Care: Yes Scheduled to follow up with patient in 24 and 48 hrs. July Poe RN 03/29/2022 9:32 AM documented in this encounter Plan of Treatment Upcoming Encounters Date Type Specialty Care Team Description 03/30/2022 Hem/Onc Treatment Hematology Oncology [place], Chair 5 Hem Onc Scenery [address] [place] [address] 03/31/2022 Scheduled Telephone [facility] Personnel Officer, [address] [place] [address] 04/01/2022 Scheduled Telephone [facility] Personnel Officer, Brady Decker 132 [place] [address] 04/06/2022 Office Visit Pharmacy Pharmacist1, [facility] Sp [address] [place] [address] 04/11/2022 Home Visit Family Medicine Kaylee Barakat, Community Health Clin Application Specialist [address] [place] [address] 04/20/2022 Office Visit Hematology Oncology Tono Sanchez MD 200 [place] [address] 04/20/2022 Hem/Onc Treatment Hematology Oncology [place], Chair 3 Hem Onc [facility] 200 [place] [address] 04/26/2022 Telemedicine Endocrinology Alberta Duque PA-C [address] [place], [place] [phone] 04/28/2022 Office Visit Gastroenterology Lyssa Stout CRNP 132 [facility] [place] [address] 04/29/2022 Office Visit Family Medicine Vanita Dunn MD [address] [place] [address] 05/03/2022 PulmDiagnostic Pulmonary Function [place], Pft 132 [place] [address] 05/05/2022 Office Visit Cardiology Quyen Canseco CRNP 132 [place] [address] 05/10/2022 [facility] Visit [facility] July Poe, RN 132 [place] [address] 05/30/2022 Office Visit Gynecology Obstetrics Susan Jara MD [address] [place] [address] 06/24/2022 Office Visit Sleep Disorders Love Francisco DO 132 [place] [address] 07/04/2022 Office Visit Gynecology Obstetrics Concetta Khan MD [address] [place] [id number] 09/14/2022 PulmDiagnostic Pulmonary Function [place], Pft [address] [place] [address] 09/28/2022 Office Visit Pulmonary AlmaReynaldo MD [address] [place] [phone] Scheduled Procedures Name Priority Associated Diagnoses Date/Ti [...] of this encounter Implants Implanted Type Area Superintendent Horticulture Device Identifier Shelf Expiration Date Model / Serial / Lot Microtech Sure Clip Implanted:Qty: 2 on 06/03/2020 by Janis Hatch DO at OR [facility] Clip N/A: Colon 04/21/2022 ROCC-F-26-2 35-C-R / / [id number] documented as of this encounter Advance Directives Documents on File Type Date Recorded Patient Lathe Setup Operator 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 AND HEALTH CARE POA Power of Clinical Tech 04/29/2021 12:00 AM TOM R OF HISTOLOGY SUPERVISOR HEALTH CARE POA Advanced Directive 04/01/2021 [...] Bustos Spouse Emergency Contact Care Teams Parts Room Clerk Relationship Specialty Start Date End Date Vanita Dunn MD [address] [place] [address] PCP - General Family Medicine 03/16/21 documented as of this encounter"
--- OUTSIDE RECORDS SUMMARY | 2023-05-10 18:42 | External Medical Summary | Summary of Care ---
Author Name Unknown Organization [facility] Address [place] [address] Care Team Providers Care Music Executive Name Role Phone Vanita Dunn MD Primary Care Provid er Reason for Visit * Reason Comments [facility]: Maintenance Encounter Details Date Type Department Care Team Description 03/29/2022 [facility] Visit [facility], [facility] 132 [facility] [place] [address] July Poe, RN 132 [facility] [place] [address] 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 documented as of this encounter (statuses as of 03/29/2022) Medications Medication Sig Dispensed Refills Start Date End Date Status nystatin (NYSTOP) 915500 UNIT/GM powder Apply topically to affected area 3 times a day. 60 g 1 10/16/2019 Active Dexcom G6 Baker Operator Automatic Device Use as directed. To test blood sugars 4 times a day Dx E11.9 1 Each 0 09/14/2020 Active Dexcom G6 Transmitter Use as directed. To test blood sugars 4 times a day. Change every 90 days. Dx E11.9 1 Each 3 09/14/2020 Active OneTouch Verio In Vitro Strip (Glucose Blood) TESTING once daily 100 Strip 3 10/29/2020 Active OneTouch Delica Plus [id number] TESTING once daily 100 Each 3 10/29/2020 [...] 7.0% ([facility]) inject 4.5mg (1 pen) under the skin [...] as of this encounter (statuses as of 03/29/2022) Active Problems Problem Noted Date Chronic diastolic [...] as of this encounter (statuses as of 03/29/2022) Resolved Problems Problem Noted Date Resolved Date [...] pain 01/24/2012 01/17/2017 Genetic Sleep Disorder Research Other*[id number] 05/13/2011 04/07/2016 Obstructive sleep apnea 01/18/2011 12/27/19 [...] as of this encounter (statuses as of 03/29/2022) Immunizations Name Administration Dates Next Due COVID-19 [...] 03/29/2022 9:32 AM EDT [facility] Therapy Aide Visit Date: 03/29/2022 Time: 9:32 AM Name: [...] hx of UTI with MRSA TT to [facility] to get order for urine specimen. CG [...] No change in living situation Denies falls [facility]-10 Completed this Visit: No. Routine visit [...] 3. Fever/chills Patient Needs to Remember: Call [facility] at with any new or worsening [...] visits & schedule home visit with care fast food team member(s)as indicated. Provider is in agreement with Plan of Care: Yes Scheduled to follow up with patient in 24 and 48 hrs. July Poe RN 03/29/2022 9:32 AM documented in this encounter Plan of Treatment Upcoming Encounters Date Type Specialty Care Team Description 03/30/2022 Hem/Onc Treatment Hematology Oncology [place], Chair 5 Hem Onc Scenery [address] [place] [address] 03/31/2022 Scheduled Telephone [facility] Rn Provider Relations, [address] [place] [address] 04/01/2022 Scheduled Telephone [facility] Provider Relations, Brady Decker 132 [place] [address] 04/06/2022 Office Visit Pharmacy Pharmacist1, [facility] Sp [address] [place] [address] 04/11/2022 Home Visit Family Medicine Kaylee Barakat, Community Health Dust Collector Treater [address] [place] [address] 04/20/2022 Office Visit Hematology Oncology Tono Sanchez MD 200 [place] [address] 04/20/2022 Hem/Onc Treatment Hematology Oncology [place], Chair 3 Hem Onc [facility] 200 [place] [address] 04/26/2022 Telemedicine Endocrinology Alberta Duque PA-C [address] [place], [place] [phone] 04/28/2022 Office Visit Gastroenterology Lyssa Stout CRNP 132 [facility] [place] [address] 04/29/2022 Office Visit Family Medicine Vanita Dunn MD [address] [place] [address] 05/03/2022 PulmDiagnostic Pulmonary Function [place], Pft 132 [place] [address] 05/05/2022 Office Visit Cardiology Quyen Canseco CRNP 132 [place] [address] 05/10/2022 [facility] Visit [facility] July Poe, RN 132 [place] [address] 05/30/2022 Office Visit Gynecology Obstetrics Susan Jara MD [address] [place] [address] 06/24/2022 Office Visit Sleep Disorders Love Francisco DO 132 [place] [address] 07/04/2022 Office Visit Gynecology Obstetrics Concetta Khan MD [address] [place] [phone] 09/14/2022 PulmDiagnostic Pulmonary Function [place], Pft [address] [place] [address] 09/28/2022 Office Visit Pulmonary AlmaReynaldo MD [address] [place] [phone] Scheduled Procedures Name Priority Associated Diagnoses Date/Ti [...] - Td or Tdap) 05/01/2027 05/01/2017, 05/26/2008 COVID-19 Vaccine Completed 01/05/2022, , 12/21/2020, Additional history exists GARDASIL-HPV IMMUNIZATION SERIES Aged Out No longer eligible based on patient's age to complete this topic MENINGOCOCCAL (MENACTRA/MENVEO) Aged Out No longer eligible based on patient's age to complete this topic documented as of this encounter Implants Implanted Type Area Systems Navigator Device Identifier Shelf Expiration Date Model / Serial / Lot Microtech Sure Clip Implanted:Qty: 2 on 06/03/2020 by Janis Hatch DO at OR [facility] Clip N/A: Colon 04/21/2022 [facility]-F-26-2 35-C-R / / [id number] documented as of this encounter Advance Directives Documents on File Type Date Recorded Patient Biophysics Teacher 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 AND HEALTH CARE POA Power of Mobile Heavy Equipment Operator 04/29/2021 12:00 AM TOM R OF [facility]GER [facility]A Advanced Directive 04/01/2021 [...] Agents on File Name Relationship Healthcare Agent [facility] p Communication Syed Bustos Spouse Emergency Contact Care Teams Music Executive Relationship Specialty Start Date End Date Vanita Dunn MD [address] [place] [address] PCP - General Family Medicine 03/16/21 documented as of this encounter"
--- OUTSIDE RECORDS SUMMARY | 2023-05-10 18:42 | External Medical Summary | Summary of Care ---
Author Name Unknown Organization [facility] Address [place] [address] Care Team Providers Care Chainstitch Seat Joiner Name Role Phone Vanita Dunn MD Primary Care Provid er Reason for Visit * Reason Onset Date Comments Health Maintenance 03/29/2022 Encounter Details Date Type Department Care Team Description 03/29/[address] [facility] [address] [place] [address] Vanita Dunn MD [address] [place] [address] Health Maintenance 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 documented as of this encounter (statuses as of 03/29/2022) Medications Medication Sig Dispensed Refills Start Date End Date Status nystatin (NYSTOP) 762375 UNIT/GM powder Apply topically to affected area 3 times a day. 60 g 1 10/16/2019 Active Dexcom G6 Senior Ios Software Engineer Device Use as directed. To [...] Strip 3 10/29/2020 Active OneTouch Delica Plus [id number] TESTING once daily 100 Each 3 10/29/2020 [...] ([facility]) inject 4.5mg (1 pen) under [...] pain 01/24/2012 01/17/2017 Genetic Sleep Disorder Research Other*[id number] 05/13/2011 04/07/2016 Obstructive sleep apnea 01/18/2011 12/27/19 [...] Team Description 03/30/2022 Hem/Onc Treatment Hematology Oncology [place], Chair 5 Hem Onc Scenery [address] [place] [address] 04/06/2022 Office Visit Pharmacy Pharmacist1, [facility] Sp [address] [place] [address] 04/11/2022 Home Visit Family Medicine Kaylee Barakat, Community Health Cinder Crusher Operator [address] [place] [address] 04/20/2022 Office Visit Hematology Oncology Tono Sanchez MD [address] [place] [address] 04/20/2022 Hem/Onc Treatment Hematology Oncology [place], Chair 3 Hem Onc Scene [address] [place] [address] 04/26/2022 Telemedicine Endocrinology Alberta Duque PA-C [address] [place], [place] [phone] 04/28/2022 Office Visit Gastroenterology Lyssa Stout CRNP 132 [facility] [place] [address] 04/29/2022 Office Visit Family Medicine Vanita Dunn MD [address] [place] [address] 05/03/2022 PulmDiagnostic Pulmonary Function [place], Pft [address] [place] [address] 05/05/2022 Office Visit Cardiology Qyuen Canseco CRNP 132 [facility] [place] [address] 05/10/2022 [facility] Visit [facility] July Poe RN 132 [facility] [place] [phone] 05/30/2022 Office Visit Gynecology Obstetrics Susan [facility] MD [facility] [place] [phone] 06/24/2022 Office Visit Sleep Disorders Love Francisco DO 132 [facility] [place] [address] 07/04/2022 Office Visit Gynecology Obstetrics Concetta Khan MD 400 [facility] [place] [address] 09/14/2022 PulmDiagnostic Pulmonary Function [place], Pft 132 [facility] [place] [address] 09/28/2022 Office Visit Pulmonary Reynaldo Marquez MD [address] [place] [phone] Scheduled Orders Name Type Priority Associated Diagnoses Orde r Schedule ALBUMIN / CREATININE RATIO, URINE Lab Routine Screening for nephropathy Expected: 03/29/2022, Expires: 03/29/2023 Scheduled Procedures Name Priority Associated Diagnoses Date/Ti va ESOPHAGOGASTRODUODENOSCOPY ( EGD), FLEXIBLE, TRANSORAL, DIAGNOSTIC Recall [...] of this encounter Implants Implanted Type Area Mortician Helper Device Identifier Shelf Expiration Date Model / Serial / Lot Microtech Sure Clip Implanted:Qty: 2 on 06/03/2020 by Janis Hatch DO at OR [facility] Clip N/A: Colon 04/21/2022 ROCC-F-26-2 35-C-R / / [id number] documented as of this encounter Visit Diagnoses Diagnosis Screening for diabetic retinopathy Screening for other eye conditions Screening for nephropathy documented in this encounter Advance Directives Documents on File Type Date Recorded Patient Stereo Equipment Salesperson 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 AND HEALTH CARE POA Power of Administrative Services Manager 04/29/2021 12:00 AM TOM R OF PRINTER TECHNICIAN HEALTH CARE POA Advanced Directive 04/01/2021 [...] Syed Bustos Spouse Emergency Contact Care Teams Chainstitch Seat Joiner Relationship Specialty Start Date End Date Vanita Dunn MD [address] [place] [address] PCP - General Family Medicine 03/16/21 documented as of this encounter
--- OUTSIDE RECORDS SUMMARY | 2023-05-10 18:43 | External Medical Summary | Summary of Care ---
Author Name Unknown Organization [facility] Address [place] [address] Care Team Providers Care Roller Bearing Inspector Name Role Phone Vanita Dunn MD Primary Care Provid er Reason for Visit * Reason Onset Date Comments Sleep Apnea Device 03/25/2022 Mask fitting Encounter Details Date Type Department Care Team Description 03/25/[address] [facility] [address] [place] [phone] Love Francisco DO [facility] [place] [address] Sleep Apnea Device (Mask fitting) 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 documented as of this encounter (statuses as of 03/29/2022) Medications Medication Sig Dispensed Refills Start Date End Date Status nystatin (NYSTOP) 991798 UNIT/GM powder Apply topically to affected area 3 times a day. 60 g 1 10/16/2019 Active Dexcom G6 Formstone Fitter Device Use as directed. To test blood sugars 4 times a day Dx E11.9 1 Each 0 09/14/2020 Active Dexcom G6 Transmitter Use as directed. To test blood sugars 4 times a day. Change every 90 days. Dx E11.9 1 Each 3 09/14/2020 Active OneTouch Verio In Vitro Strip (Glucose Blood) TESTING once daily 100 Strip 3 10/29/2020 Active OneTouch Delica Plus [id number] TESTING once daily 100 Each 3 10/29/2020 [...] less than 7.0% ([facility]) inject 4.5mg (1 pen) under [...] pain 01/24/2012 01/17/2017 Genetic Sleep Disorder Research Other*[id number] 05/13/2011 04/07/2016 Obstructive sleep apnea 01/18/2011 12/27/19 [...] encounter Miscellaneous Notes * Telephone Encounter - Saloni Ariza LPN - 03/29/2022 9:17 AM EDT Order has been faxed to the DME * Telephone Encounter - Love Francisco DO - 03/25/2022 6:23 PM EDT Received message from Pulmonary that pt is having difficulty with mask fit. From my note from our last Sleep Med visit in October: "Rash, scabbing, and skin irritation from mask. Mask fitting ordered (foam interface or low-profileFFM). Try mask liners (such as REMzzz's) if still having irritation from mask. - DME: [facility] [place]" Phone call to patient. Her mask is leaking a lot. She needs to adjust it a lot. Not sure if she is still getting rash from the mask. Will order mask fitting through DME. Sleep Nurse, please send DME order. documented in this encounter Plan of Treatment Upcoming Encounters Date Type Specialty Care Team Description 03/29/2022 Home Visit [facility] [place] July Poe RN 132 [place] [address] 03/30/2022 Hem/Onc Treatment Hematology Oncology [place], Chair 5 Hem Onc Scenery [address] [place] [address] 04/06/2022 Office Visit Pharmacy Pharmacist1, [facility] [address] [place] [address] 04/11/2022 Home Visit Family Medicine [place] Kaylee Bel[place], Community Health Forging Press Operator [address] [place] [address] 04/20/2022 Office Visit Hematology Oncology Tono Sanchez MD [address] [place] [address] 04/20/2022 Hem/Onc Treatment Hematology Oncology [place], Chair [address] [address] 04/26/2022 Telemedicine Endocrinology Alberta Duque PA-C [address] [place], [place] [phone] 04/28/2022 Office Visit Gastroenterology Lyssa Stout CRNP [address] [place] [address] 05/03/2022 PulmDiagnostic Pulmonary Function [place], Pft [address] [place] [address] 05/05/2022 Office Visit Cardiology Quyen Canseco CRNP [address] [place] [address] 05/30/2022 Office Visit Gynecology Obstetrics Susan Jara MD [address] [place] [address] [place] [address] 06/24/2022 Office Visit Sleep Disorders Love Francisco DO [address] [place] [address] 07/04/2022 Office Visit Gynecology Obstetrics Concetta Khan MD [address] [place] [address] 09/14/2022 PulmDiagnostic Pulmonary Function [place], Pft [address] [place] [address] 09/28/2022 Office Visit Pulmonary Reynaldo Marquez MD [...] of this encounter Implants Implanted Type Area Socially Responsible Investment Adviser Device Identifier Shelf Expiration Date Model / Serial / Lot Microtech Sure Clip Implanted:Qty: 2 on 06/03/2020 by Janis Hatch DO at OR [facility] Clip N/A: Colon 04/21/2022 [facility]-F-26-2 35-C-R / / [id number] documented as of this encounter Visit Diagnoses Diagnosis Obstructive sleep apnea- Primary Obstructive sleep apnea (adult) (pediatric) Restrictive lung disease Other diseases of lung, not elsewhere classified documented in this encounter Advance Directives Documents on File Type Date Recorded Patient Life Specialist 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 WILL AND HEALTH CARE POA Power of Perlite Grinder 04/29/2021 12:00 AM TOM R AIRCRAFT MACHINIST HELPER HEALTH CARE POA Advanced Directive 04/01/2021 1:14 [...] on File Name [facility] Syed Bustos Spouse Emergency Contact Care Teams Roller Bearing Inspector Relationship Specialty Start Date End Date Vanita Dunn MD [address] [place] [address] PCP - General Family Medicine 03/16/21 documented as of this encounter
--- OUTSIDE RECORDS SUMMARY | 2023-05-10 18:43 | External Medical Summary | Summary of Care ---
Author Name Unknown Organization [place] [address] Care Team Providers Care It Architecture Consultant Name Role Phone Vanita Dunn MD Primary Care Provid er Reason for Visit * Reason Comments Follow Up Other Restrictive Lung Dis ease Encounter Details Date Type Department Care Team Description 03/25/2022 Office Visit Pulmonary Medicine, [facility] [address] [facility] [place] [address] Reynaldo Marquez MD [address] [facility] [place] [id number] SOB (shortness of breath)*; Restrictive lung disease; Other cerebral palsy (HCC); Obesity, morbid (more than 100 lbs over ideal weight or BMI > 40) (HCC); Moderate persistent asthma without complication; Secondary esophageal varices without bleeding (HCC); Chronic diastolic heart failure (HCC); 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 60 g 1 10/16/2019 Active Dexcom G6 Youth Cor[employer] Officer Device Use as directed. To test blood sugars 4 times a day Dx E11.9 1 Each 0 09/14/2020 Active Dexcom G6 Transmitter Use as directed. To test blood sugars 4 times a day. Change every 90 days. Dx E11.9 1 Each 3 09/14/2020 Active OneTouch Verio In Vitro Strip (Glucose Blood) TESTING once daily 100 Strip 3 10/29/2020 Active OneTouch Delica Plus [id number] TESTING once daily 100 Each 3 10/29/2020 [...] as of this encounter (statuses as of 03/25/2022) Active Problems Problem Noted Date Chronic diastolic [...] e xtremities 05/07/2012 THOMPSON (nonalcoholic steatohepatitis) 04/12 HTN, goal below 130/80 03/27/2012 Cerebral palsy 01/24/2012 Spinal stenosis of lumbar region without neurogenic claudication 12/27/2010 Venous insufficiency 01/09/2009 DDD (degenerative disc disease), lumbar Dyslipidemia documented as of this encounter (statuses as of 03/25/2022) Resolved Problems Problem Noted Date Resolved Date [...] pain 01/24/2012 01/17/2017 Genetic Sleep Disorder Research Other*[id number] 05/13/2011 04/07/2016 Obstructive sleep apnea 01/18/2011 12/27/19 [...] as of this encounter (statuses as of 03/25/2022) Immunizations Name Administration Dates Next Due COVID-19 [...] Sign Reading Time Taken Comments Blood Pressure 134/68 03/25/2022 3:35 PM EDT Pulse 73 03/25/2022 3:35 PM EDT Temperature 36.6 C (97.8 F) 03/25/2022 3:35 PM ED T Respiratory Rate 14 03/25/2022 3:35 PM EDT Oxygen Saturation 94% 03/25/2022 3:35 PM EDT Inhaled Oxygen Concentration - - [...] as of this encounter Progress Notes * Reynaldo Marquez MD - 03/25/2022 3:44 PM EDT PULMONARY PROGRESS NOTE REFERRING PHYSICIAN: Vanita Dunn MD HPI: 66-year-old female history of multifactorial shortness of breath, restrictive lung disease, moderate persistent asthma, morbid obesity, cerebral palsy dependent motorized wheelchair and unable to walk/stand, chronic heart failure preserved EF, Thompson cirrhosis with portal hypertensive gastropathy and esophageal varices, chronic hypercarbic respiratory failure requiring NIV with all sleep and THAD here for routine follow-up. Patient was last seen 07/2021. Having trouble with fit of her NIV. Is wearing it for 8 hours nightly. She denies coughs She denies sputum She denies wheezes She denies night time cough She denies hemoptysis She becomes short of breath after: NA- uses a candace lift for transfers She has had 0 ER visits/hospitalization and 0 courses of prednisone related to their breathing in the past year She is anever smokes She has hx of pneumonia She current inhalers are symbicort 160 prn. Remains on lasix She has history of hay fever/seasonal allergies Past Medical History: Diagnosis Date Anemia Anxiety and depression Arthritis Cerebral palsy ([facility]) 01/24/2012 Chronic constipation Chronic diastolic (congestive) heart failure ([facility]) 09/13/2021 Chronic hypoxemic respiratory failure ([facility]) 04/08/2019 Chronic pain 03/27/2012 Cirrhosis of liver ([facility]) 11/20/2017 DDD (degenerative disc disease), lumbar DM [...] of less than 8.0% ([facility]) 09/26/2013 ICD-10 update of inactive term Past Surgical History: Procedure Laterality Date BONE DEBRIDEMENT, FIRST 20 CM2 Right 04/16/2020 DEBRIDEMENT SKIN SUBCUTANEOUS TISSUE MUSCLE AND BONE performed by Josh Vazquez MD at OR [facility] DELIVERY 04/20/1982 COLONOSCOPY 04/21/2009 repeat in 10 years COLONOSCOPY, DIAGNOSTIC (RECTUM) 10/04/2016 normal bx, repeat 10 yrs/[facility] COLONOSCOPY, DIAGNOSTIC (RECTUM) N/A 06/03/2020 internal hemorrhoids/biopsies show adenomatous polyps/recall 5 years/COLONOSCOPY FLEXIBLE PROXIMAL DIAGNOSTIC performed by Janis Hatch DO at [facility] COLONOSCOPY, DIAGNOSTIC (RECTUM) 03/17/2020 poor prep / [facility] DENTAL SURGERY PROCEDURE NEC wisdom teeth x 4 DILATION AND CURETTAGE (D&C) EGD, FLEXIBLE, DIAGNOSTIC 10/04/2016 gastritis/[facility] EGD, FLEXIBLE, DIAGNOSTIC 01/11/2018 eso varices, retained food, repeat 1 yr/[facility] EGD, FLEXIBLE, DIAGNOSTIC N/A 06/03/2020 severe erosive esophagitis/non-bleeding grade II esophageal varices/gastritis/biopsies show inflammatory changes/repeat 3-4 months/ESOPHAGOGASTRODUODENOSCOPY (EGD), FLEXIBLE, TRANSORAL, DIAGNOSTIC per formed by Janis Hatch DO at OR [facility] EGD, FLEXIBLE, DIAGNOSTIC 11/27/2019 eso varices, portal hypertensive gastropathy, gastritis / [facility] EGD, FLEXIBLE, DIAGNOSTIC N/A 08/05/2020 large amount of food in stomach/repeat 1.5 years/ESOPHAGOGASTRODUODENOSCOPY (EGD), FLEXIBLE, TRANSORAL, DIAGNOSTIC performed by Janis Hatch DO at OR [facility] EGD, FLEXIBLE, DIAGNOSTIC N/A 03/10/2021 ESOPHAGOGASTRODUODENOSCOPY (EGD), FLEXIBLE, TRANSORAL, DIAGNOSTIC performed by Kris Blankenship MD at ENDOSCOPY [facility] HYSTEROSCOPY W/BIOPSY AND/OR POLYPECTOMY W/WO D&C N/A 12/27/2021 HYSTEROSCOPY WITH BIOPSY AND/OR POLYPECTOMY WITH OR WITHOUT D&C performed by Concetta Khan MD at OR [facility] HYSTEROSCOPY W/BIOPSY AND/OR POLYPECTOMY W/WO D&C N/A 02/14/2022 HYSTEROSCOPY WITH BIOPSY AND/OR POLYPECTOMY WITH OR WITHOUT D&C performed by Concetta Khan MD at OR [facility] INSERT INTRAUTERINE DEVICE (IUD) N/A 02/14/2022 INSERTION OF INTRAUTERINE DEVICE performed by Concetta Khan MD at OR [facility] IR VENOUS ACCESS MEDIPORT 10/05/2020 PELVIS/HIP JOINT SURGERY NEC teenager aid in walking REMOVE CERVIX CONE W/LOOP ELECTRODE N/A 12/27/2021 LOOP ELECTROSURGERY EXCISION PROCEDURE performed by Concetta Khan MD at OR [facility] REPAIR/GRAFT ACHILLES TENDON age 40 aid in walking Allergies: Adhesive tape, Pcn [penicillins], and Perflutren protein a microsph Current Outpatient Medications Medication Sig Dispense Refill nystatin (NYSTOP) 048729 UNIT/GM powder Apply topically to affected area 3 times a day. 60 g 1 Dexcom G6 Youth Corrections Officer Device Use as directed. To test blood sugars 4 times a day Dx E11.9 1 Each 0 Dexcom G6 Transmitter Use as directed. To test blood sugars 4 times a day. Change every 90 days. Dx E11.9 1 Each 3 OneTouch Verio In Vitro Strip (Glucose Blood) TESTING once daily 100 Strip 3 OneTouch Delica Plus [id number] TESTING once daily 100 Each 3 Nitroglycerin [...] X-Large Use as directed 60 Each 5 Oxybutynin Chloride 5 MG Oral Tablet (Ditropan) TAKE 1 TABLET BY MOUTH TWICE DAILY 180 Tablet 1 Mupirocin 2 % External Ointment (Bactroban) Apply to the right side of the nose twice daily 22 g 0 Lantus SoloStar 100 UNIT/ML Subcutaneous Solution Pen-injector 36 Units every night at bedtime . Potassium Chloride ER 10 MEQ Oral Tablet [...] 36 Units before supper 1 Each 11 No current facility-administered medications for this visit. Social/occupational/living/family history reviewed unchanged SYSTEMS REVIEW: REVIEW OF SYSTEMS CONSTITUTIONAL ROS: No change in weight, +weakness, No fatigue and No fevers, sweats, or chills EYE ROS: No recent significant change in vision, No eye pain, redness, discharge, No diplopia, No h/o cataracts and No h/o glaucoma EAR ROS: No ear pain, No drainage, No tinnitus or vertigo and No recent change in hearing NOSE/THROAT ROS: No history of frequent colds or sinusitis, No nasal stuffiness, No history of Hay Fever and No significant epistaxis MOUTH ROS: No bleeding gums, No thrush or No sore throat NECK ROS: No lumps or masses, No swollen glands, No recent swelling in thyroid area, No significantpain in neck and No h/o goiter or thyroid disease PULMONARY ROS: see HPI CARDIOVASCULAR ROS: No chest pain, No orthopnea, No paroxysmal nocturnal dyspnea, No edema, No palpitations and No syncope GASTROINTESTINAL ROS: No abdominal pain, No change in bowel habits, No significant heartburn, No significant change in appetite, No nausea, vomiting, diarrhea, or constipation, No hematemesis, No blood in stools or black tarry stools, No abdominal bloating or early satiety and No dysphagia HEMATOLOGIC/LYMPHATIC ROS: No coagulation disorder, No anemia, No abnormal bleeding, No chills, No bruising, No HIV risk factors, No night sweats, No swollen nodes, No weight loss and No history of transfusion MSK/EXTREMITIES ROS: No pain, redness or swelling on the joints SKIN/INTEGUMENTARY ROS: No edema, No rash and No itching NEUROLOGICAL ROS: Normal balance, No headaches, No seizures and No weakness PSYCHIATRIC ROS: No depression, No anxiety and No psychosis ALLERGY/IMMUNOLOGIC ROS: No allergic triggers, No sneeze, nasal itch, ocular symptoms of allergy, No reactions to insect sting, No chemical sensitivities and No Food Allergies PHYSICAL EXAM: BP 134/68 | Pulse 73 | Temp 36.6 C (97.8 F) (Tympanic) | Resp 14 | SpO2 94% GEN: morbdily obese middle aged female, sitting in her powered wheelchair, speaking in complete sentences HEENT: eyes perrla, trachea midline, non-boggy nasal turbinates and no nasal drainage. CHEST: no respiratory distress, no retractions, or abdominal breathing. Lungs cwith mildly decreased BS at the bases No egophony, ribs nontender to palpation. CVS: S1,S2 normal, regular rate and rhythm, no murmurs, rubs or gallops ABD: soft, nontender, protuberant, +BS, no organomegaly EXT:pitting andnon pitting edema in lower extremities bilaterally, posterior tibial and radial pulses 2+ bilaterally, no clubbing in fingers or toes. SKIN: no lesions or rashes, dry, warm Neuro: alert, oriented to person, place and time. Rest of exam nonfocal, GCS 15. ADENOPATHY: no cervical or axillary adenopathy OTHER: rest of exam unremarkable DATA 08/2021: ne rast positive for dust mites, grasses, IGE 75. cxr from 09/2021 reviewed in pacs and agree concerning for RLL pneumonia. cxr report only from 12/2021: cardiomegaly with diffuse interstitial/vascular thickening and vascular congestion. Left humeral head dislocation. Other: Interm History/Respiratory Symptoms Cough: Occ Hemoptysis: no Sinus Symptoms: PND Hospitalizations: no ED Trips: no Triggers: weather Nocturnal: no CPAP/BiPAP/O2: Cpap with O2 @ 2 lpm Flu Vaccine: 06/10/21 Pneumovax: 06/01/10 Prevnar: 05/02/19 COVID 19: 11/23/20,12/21/20,07/26/21 MMRC Dyspnea Scale = Per pt does not apply Assessment: 1. Shortness of breath is multifactorial secondary to restrictive lung disease, morbid obesity, asthma, deconditioning, CHF 2. Restrictive lung disease likely combination of extrathoracic disease from her cerebral palsy anddue to her morbid obesity 3. Moderate persistent asthma, controlled, no recent flares, T H2 phenotype 4. Morbid obesity BMI 50.49 5. Cerebral palsy dependent on motorized wheelchair as she is unable to stand or walk, dependent onothers for all ADLs 6. Chronic heart failure preserved EF, mildly hypervolemic on exam 7. THOMPSON with portal hypertension and esophageal varices 8. Chronic hypercarbic respiratory failure requiring BiPAP with all sleep 9. THAD on BiPAP Recommendations and Plans: Reordered PFTs, bugle pressures, ABG that were ordered but not done at her last visit. Continue advair, prn albuterol Continue bipap with all sleep. Message sent to her sleep provider regarding Bipap mask issues Continue cough assist device Due for covid booster F/u in 6 months, in person, sooner if needed All the patient's and her 's questions and concerns were addressed to their apparent satisfaction I spent more than 50% of the 25 minute visit counseling and coordinating care. Reynaldo Marquez MD Pulmonary Medicine, [address] [address] documented in this encounter Nursing Notes * Saloni Ariza LPN - 03/25/2022 3:29 PM EDT Chief Complaint Patient presents with Follow Up Other Restrictive Lung Disease Interm History/Respiratory Symptoms Cough: Occ Hemoptysis: no Sinus Symptoms: PND Hospitalizations: no ED Trips: no Triggers: weather Nocturnal: no CPAP/BiPAP/O2: Cpap with O2 @ 2 lpm Flu Vaccine: 06/10/21 Pneumovax: 06/01/10 Prevnar: 05/02/19 COVID 19: 11/23/20,12/21/20,07/26/21 MMRC Dyspnea Scale = Per pt does not apply documented in this encounter Plan of Treatment Upcoming Encounters Date Type Specialty Care Team Description 03/29/2022 Home Visit [facility] July Poe, RN [address] [place] [address] 03/30/2022 Hem/Onc Treatment Hematology Oncology [place], Chair [address] [place] [address] 04/06/2022 Office Visit Pharmacy Pharmacist1, [facility] [address] [place] [address] 04/11/2022 Home Visit Family Medicine Kaylee Barakat, Community [facility] Income Tax Manager [address] [place] [address] 04/20/2022 Office Visit Hematology Oncology Tono Sanchez MD [address] [place] [address] 04/20/2022 Hem/Onc Treatment Hematology Oncology [place], Chair [address] [place] [address] 04/26/2022 Telemedicine Endocrinology Alberta Duque PA-C [address], [place] [phone] 04/28/2022 Office Visit Gastroenterology Lyssa Stout CRNP [address] [place] [address] 05/03/2022 PulmDiagnostic Pulmonary Function [place], [address] [place] [address] 05/05/2022 Office Visit Cardiology Quyen Canseco CRNP [address] [place] [address] 05/30/2022 Office Visit Gynecology Obstetrics [facility] Jara [facility] [address] [facility] [place] [address] 06/24/2022 Office Visit Sleep Disorders Love Francisco, DO [address] [place] [address] 07/04/2022 Office Visit Gynecology Obstetrics [facility] [address] [facility] [address] 09/14/2022 PulmDiagnostic Pulmonary Function [place], [address] [place] [address] 09/28/2022 Office Visit Pulmonary Reynaldo Marquez MD [address] [facility] [place] [address] Scheduled Orders Name Type Priority Associated Diagnoses Orde r Schedule SPIROMETRY B/A BRONCHODILATOR Procedures Routine SOB (shortness of breath) Restrictive lung disease Expected: 03/26/2022, Expires: 09/25/2022 DIFFUSION CAPACITY (DLCO) Procedures Routine SOB (shortness of breath) Restrictive lung disease Expected: 03/26/2022, Expires: 09/25/2022 LUNG VOLUMES (PLETHYSMOGRAPHY) Procedures Routine SOB (shortness of breath) Restrictive lung disease Expected: 03/26/2022, Expires: 09/25/2022 BLOOD GAS, ARTERIAL Lab Routine SOB (shortness of breath) Restrictive lung disease Expected: 03/26/2022, Expires: 03/25/2023 RESPIRATORY MUSCLE PRESSURES (BUGLE PRESSURES) Procedures Routine SOB (shortness of breath) Restrictive lung disease Ordered: 03/25/2022 Scheduled Procedures Name Priority Associated Diagnoses Date/Ti me ESOPHAGOGASTRODUODENOSCOPY ( EGD), FLEXIBLE, TRANSORAL, DIAGNOSTIC Recall Esophagitis COLONOSCOPY FLEXIBLE PROXIMAL DIAGNOSTIC Recall History of colonic polyps Health Maintenance Due Date Last Done Comments DIABETES-EYE EXAM 06/12/2019 06/12/2018, , 06/12/2018, Additional history exists DIABETES-URINE ALBUMIN/CREATININE EVERY 12 MONTHS 01/12/2020 01/11/2019, 02/03/2017, 08/25/2015, Additional history exists Dexa Scan 2020 Pneumococcal Vaccine: 65+ Years (3 - PPSV23 [...] of this encounter Implants Implanted Type Area Photography Professor Device Identifier Shelf Expiration Date Model / Serial / Lot [employer] Sure Clip Implanted:Qty: 2 on 06/03/2020 by Janis Hatch DO at OR [facility] Clip N/A: Colon 04/21/2022 [facility]-F-26-2 35-C-R / / [id number] documented as of this encounter Visit Diagnoses Diagnosis SOB (shortness of breath)- Primary Shortness of breath Restrictive lung disease Other diseases of lung, not elsewhere classified Other cerebral palsy (HCC) Obesity, morbid (more than 100 lbs over ideal weight or BMI > 40) (HCC) Morbid obesity Moderate persistent asthma without complication Unspecified asthma Secondary esophageal varices without bleeding (HCC) Esophageal varices without mention of bleeding in diseases classified elsewhere Chronic diastolic heart failure (HCC) Chronic diastolic heart failure 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) Other chronic nonalcoholic liver disease Portal hypertension (HCC) Portal hypertension documented in this encounter Advance Directives Documents on File Type Date Recorded Patient Regional Coordinator 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 WILL AND HEALTH CARE POA Power of Weight Inspector 04/29/2021 12:00 AM TOM R OF [employer] C[employer] POA Advanced Directive 04/01/2021 1:14 [...] [place] Spouse Emergency Contact Care Teams It Architecture Consultant Relationship Specialty Start Date End Date Vanita Dunn MD [address] [place] [address] PCP - General Family Medicine 03/16/21 documented as of this encounter"
--- OUTSIDE RECORDS SUMMARY | 2023-05-10 18:43 | External Medical Summary | Summary of Care ---
Author Name Unknown Organization [place] [address] Care Team Providers Care Paper Bag Inspector Name Role Phone Vanita Dunn MD Primary Care Provid er Reason for Visit * Reason Comments Follow Up Other Restrictive Lung Dis ease Encounter Details Date Type Department Care Team Description 03/25/2022 Office Visit Pulmonary Medicine, [facility] [address] [facility] [place] [address] Reynaldo Marquez MD [address] [facility] [place] [id number] SOB (shortness of breath)*; Restrictive lung disease; [...] Start Date End Date Status nystatin (NYSTOP) 657540 UNIT/GM powder Apply topically to affected area 3 times a day. 60 g 1 10/16/2019 Active Dexcom G6 Electronics Technician Apprentice Device Use as directed. To test blood sugars 4 times a day Dx E11.9 1 Each 0 09/14/2020 Active Dexcom G6 Transmitter Use as directed. To test blood sugars 4 times a day. Change every 90 days. Dx E11.9 1 Each 3 09/14/2020 Active OneTouch Verio In Vitro Strip (Glucose Blood) TESTING once daily 100 Strip 3 10/29/2020 Active OneTouch Delica Plus [id number] TESTING once daily 100 Each 3 10/29/2020 [...] of less than 7.0% ([facility]) inject 4.5mg (1 pen) under the [...] pain 01/24/2012 01/17/2017 Genetic Sleep Disorder Research Other*[id number] 05/13/2011 04/07/2016 Obstructive sleep apnea 01/18/2011 12/27/19 [...] Anemia Anxiety and depression Arthritis Cerebral palsy ([facility]) 01/24/2012 Chronic constipation Chronic diastolic (congestive) heart failure ([facility]) 09/13/2021 Chronic hypoxemic respiratory failure ([facility]) 04/08/2019 Chronic pain 03/27/2012 Cirrhosis of liver ([facility]) 11/20/2017 DDD (degenerative disc disease), lumbar DM [...] of less than 8.0% ([facility]) 09/26/2013 ICD-10 update of inactive term Past Surgical History: Procedure Laterality Date BONE DEBRIDEMENT, FIRST 20 CM2 Right 04/16/2020 DEBRIDEMENT SKIN SUBCUTANEOUS TISSUE MUSCLE AND BONE performed by Josh Vazquez MD at [place] [facility] DELIVERY 04/20/1982 COLONOSCOPY 04/21/2009 repeat in 10 years COLONOSCOPY, DIAGNOSTIC (RECTUM) 10/04/2016 normal bx, repeat 10 yrs/[facility] COLONOSCOPY, DIAGNOSTIC (RECTUM) N/A 06/03/2020 internal hemorrhoids/biopsies show adenomatous polyps/recall 5 years/COLONOSCOPY FLEXIBLE PROXIMAL DIAGNOSTIC performed by Janis Hatch DO at [facility] COLONOSCOPY, DIAGNOSTIC (RECTUM) 03/17/2020 poor prep / [facility] DENTAL SURGERY PROCEDURE NEC wisdom teeth x 4 DILATION AND CURETTAGE (D&C) EGD, FLEXIBLE, DIAGNOSTIC 10/04/2016 gastritis/[facility] EGD, FLEXIBLE, DIAGNOSTIC 01/11/2018 eso varices, retained food, repeat 1 yr/[facility] EGD, FLEXIBLE, DIAGNOSTIC N/A 06/03/2020 severe erosive esophagitis/non-bleeding grade II esophageal varices/gastritis/biopsies show inflammatory changes/repeat 3-4 months/ESOPHAGOGASTRODUODENOSCOPY (EGD), FLEXIBLE, TRANSORAL, DIAGNOSTIC per formed by Janis Hatch DO at OR [facility] EGD, FLEXIBLE, DIAGNOSTIC 11/27/2019 eso varices, portal hypertensive gastropathy, gastritis / [facility] EGD, FLEXIBLE, DIAGNOSTIC N/A 08/05/2020 large amount of food in stomach/repeat 1.5 years/ESOPHAGOGASTRODUODENOSCOPY (EGD), FLEXIBLE, TRANSORAL, DIAGNOSTIC performed by Janis Hatch DO at OR [facility] EGD, FLEXIBLE, DIAGNOSTIC N/A 03/10/2021 ESOPHAGOGASTRODUODENOSCOPY (EGD), FLEXIBLE, TRANSORAL, DIAGNOSTIC performed by Kris Blankenship MD at [place]OS[place] [facility] HYSTEROSCOPY W/BIOPSY AND/OR POLYPECTOMY W/WO D&C N/A 12/27/2021 HYSTEROSCOPY WITH BIOPSY AND/OR POLYPECTOMY WITH OR WITHOUT D&C performed by Concetta Khan MD at OR [facility] HYSTEROSCOPY W/BIOPSY AND/OR POLYPECTOMY W/WO D&C N/A 02/14/2022 HYSTEROSCOPY WITH BIOPSY AND/OR POLYPECTOMY WITH OR WITHOUT D&C performed by Concetta Khan MD at OR [facility] INSERT INTRAUTERINE DEVICE (IUD) N/A 02/14/2022 INSERTION OF INTRAUTERINE DEVICE performed by Concetta Khan MD at OR [facility] IR VENOUS ACCESS MEDIPORT 10/05/2020 PELVIS/HIP JOINT SURGERY NEC teenager aid in walking REMOVE CERVIX CONE W/LOOP ELECTRODE N/A 12/27/2021 LOOP ELECTROSURGERY EXCISION PROCEDURE performed by Concetta Khan MD at OR [facility] REPAIR/GRAFT ACHILLES TENDON age 40 aid in walking Allergies: Adhesive tape, Pcn [penicillins], and Perflutren protein a microsph Current Outpatient Medications Medication Sig Dispense Refill nystatin (NYSTOP) 352283 UNIT/GM powder Apply topically to affected area 3 times a day. 60 g 1 Dexcom G6 Electronics Technician Apprentice Device Use as directed. To test blood sugars 4 times a day Dx E11.9 1 Each 0 Dexcom G6 Transmitter Use as directed. To test blood sugars 4 times a day. Change every 90 days. Dx E11.9 1 Each 3 OneTouch Verio In Vitro Strip (Glucose Blood) TESTING once daily 100 Strip 3 OneTouch Delica Plus [id number] TESTING once daily 100 Each 3 Nitroglycerin [...] coordinating care. Reynaldo Marquez MD Pulmonary Medicine, [address] [address] documented in this encounter Nursing Notes * [...] Home July Poe, RN [address] [place] [address] 03/30/2022 Hem/Onc Treatment Hematology Oncology [place], Chair 5 Hem Onc Scenery [address] [place] [address] 04/06/2022 Office Visit Pharmacy Pharmacist1, [facility] Sp [address] [place] [address] 04/11/2022 Home Visit Family Medicine Kaylee Barakat, Community Health Spoilage Worker [address] [place] [address] 04/20/2022 Office Visit Hematology Oncology Tono Sanchez MD [address] [place] [address] 04/20/2022 Hem/Onc Treatment Hematology Oncology [place], Chair 3 Hem Onc Scenery 200 [place] [address] 04/26/2022 Telemedicine Endocrinology Alberta Duque PA-C [address] [place], [place] [id number] 04/28/2022 Office Visit Gastroenterology Lyssa Stout CRNP [address] [place] [address] 05/03/2022 PulmDiagnostic Pulmonary Function West, Pft [address] [place] [address] 05/05/2022 Office Visit Cardiology Quyen Canseco CRNP [address] [place] [address] 05/30/2022 Office Visit Gynecology Obstetrics Susan Jara MD [address] [facility] [place] [address] 06/24/2022 Office Visit Sleep Disorders Love Francisco, DO [address] [place] [address] 07/04/2022 Office Visit Gynecology Obstetrics Con[facility]etta Khan MD [address] [facility] [place] [address] 09/14/2022 PulmDiagnostic Pulmonary Function West, Pft [address] [place] [address] 09/28/2022 Office Visit Pulmonary Reynaldo aMrquez MD [address] [facility] [place] [address] Scheduled Orders Name Type Priority Associated Diagnoses [...] this encounter Implants Implanted Type Area Marketing Liaison Device Identifier Shelf Expiration Date Model / Serial / Lot Microtech Sure Clip Implanted:Qty: 2 on 06/03/2020 by Janis Hatch DO at OR [facility] Clip N/A: Colon 04/21/2022 [facility]-F-26-2 35-C-R / / [id number] documented as of this encounter Visit Diagnoses [...] Documents on File Type Date Recorded Patient Reception Clerk 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 WILL AND HEALTH CARE POA Power of Survey Associate 04/29/2021 12:00 AM TOM R OF CLIENT ACCOUNT MANAGER HEALTH CARE POA Advanced Directive 04/01/2021 [...] Syed Bustos Spouse Emergency Contact Care Teams Paper Bag Inspector Relationship Specialty Start Date End Date Vainta Dunn MD [address] [place] [address] PCP - General Family Medicine 03/16/21 documented as of this encounter"
--- OUTSIDE RECORDS SUMMARY | 2023-05-10 18:44 | External Medical Summary | Summary of Care ---
Author Name Unknown Organization [facility] Address [place] [address] Care Team Providers Care Credit Card Interviewer Name Role Phone Vanita Dunn MD Primary Care Provid er Reason for Visit * Reason Onset Date Comments [facility]: Maintenance 03/18/2022 Encounter Details Date Type Department Care Team Description 03/18/2022 Scheduled Telephone [facility], [facility] [address] [facility] [place] [address] Coordinator, [facility] [address] [facility] [place] [address] 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 documented as of this encounter (statuses as of 03/18/2022) Medications Medication Sig Dispensed Refills Start Date End Date Status nystatin (NYSTOP) 533919 UNIT/GM powder Apply topically to affected area 3 times a day. 60 g 1 10/16/2019 Active Dexcom G6 Tipple Operator Device Use as directed. To test blood sugars 4 times a day Dx E11.9 1 Each 0 09/14/2020 Active Dexcom G6 Transmitter Use as directed. To test blood sugars 4 times a day. Change every 90 days. Dx E11.9 1 Each 3 09/14/2020 Active OneTouch Verio In Vitro Strip (Glucose Blood) TESTING once daily 100 Strip 3 10/29/2020 Active OneTouch Delica Plus [id number] TESTING once daily 100 Each 3 10/29/2020 Active Nitroglycerin 0.4 MG Sublingual Tablet Sublingual (Nitrostat) Place 1 Tab under the tongue every 5 minutes as needed for Pain, Chest. up to 3 doses in 15 minutes 25 Tab 11 03/03/2021 Active Additional Information Patient not taking. Reported on 12/27/2021 BiPAP every night at bedtime. 0 Active MEDICAL INSTRUCTIONSIndicati ons:Iron deficiency anemia due to chronic blood loss Please de-access patient's port. Please flush with 10 mL of NS, followed by 500 units (5 mL) of heparin. 1 Each 0 03/12/2021 Active NovoLOG FlexPen 100 UNIT/ML Subcutaneous Solution Pen-injector Inject under the skin three times a day before meals. 32 Units at breakfast, 36 Units before lunch, 36 Units before supper 0 03/24/2021 Active Docusate Sodium 100 MG Oral Capsule [...] BEFORE BREAKFAST 90 Capsule 1 07/22/2021 Active Additional Information Patient not taking. Reported on 01/28/2022 BD Pen Needle Mini U/F 31G X 5 MM (Insulin Pen Needle)Indications:T ype 2 diabetes mellitus with hemoglobin A1c goal of less than 7.0% ([facility]) USE TO INJECT INSULIN FOUR TIMES DAILY. 400 Each 3 08/23/2021 Active Benzonatate 100 MG Oral Capsule (Tessalon Perles)Indications:B ronchitis, complicated Take 1 Capsule by mouth [...] hemoglobin A1c goal of less than 7.0% ([facility]) inject 4.5mg (1 pen) under the skin once weekly 6 mL 5 02/22/2022 Active Aspirin 81 MG Oral Tablet Chewable CHEW AND SWALLOW 1 TABLET BY MOUTH ONCE DAILY 30 Tablet 8 03/12/2022 Active documented as of this encounter (statuses as of 03/18/2022) Active Problems Problem Noted Date Chronic diastolic [...] as of this encounter (statuses as of 03/18/2022) Resolved Problems Problem Noted Date Resolved Date [...] pain 01/24/2012 01/17/2017 Genetic Sleep Disorder Research Other*[id number] 05/13/2011 04/07/2016 Obstructive sleep apnea 01/18/2011 12/27/19 [...] as of this encounter (statuses as of 03/18/2022) Immunizations Name Administration Dates Next Due COVID-19 mRNA, LNP-s, No Pre serve, 2-Dose Series (Moderna) 07/26/2021,12/21/2020,11/23/2020 HEP A - Hepatitis A (Adult > [...] Telephone Encounter - Dorothy Walker LPN - 03/18/2022 9:40 AM EDT [facility] Telephonic Nurse Follow-Up Call Follow Up Call Type: 24 hour follow up Acute issue requiring follow-up call: Other: rash Objective: VITALS ACROSS ENCOUNTERS 03/09/2022 03/03/2022 03/03/2022 03/02/2022 02/14/2022 BP 110/63 120/62 - 118/62 120/53 Pulse 74 - - 64 62 Weight - 113.4 kg - - - BMI - 50.47 - - - BODY MASS INDEX - - 50.49 - - Lab Results Component Value Date PROTEIN - [facility] 6.7 12/20/2021 WBC AUTO - [facility] 3.33 (L) 03/08/2022 Lab Results Component Value Date WBC AUTO - [facility] 3.33 (L) 03/08/2022 HGB - [facility] 10.6 (L) 03/08/2022 PLATELET AUTO - [facility] 79 (L) 03/08/2022 Lab Results Component Value Date SODIUM - [facility] 138 12/20/2021 POTASSIUM - [facility] 4.3 12/20/2021 CO2 - [facility] 26 12/20/2021 CREATININE - [facility] 0.7 12/20/2021 ESTIMATED GLOMERULAR FILTRATION RATE - [facility] >90 12/20/2021 ALBUMIN - [facility] 3.2 (L) 12/20/2021 AST - [facility] 41 (H) 12/20/2021 ALT - [facility] 25 12/20/2021 ALKALINE PHOSPHATASE - [facility] 112 12/20/2021 No results found for: PRO BNP, LEFT VENTRICULAR EJECTION FRACTION Remote Patient Monitoring: NONE Oxygen Needs: NO supplemental oxygen needs identified DME Needs: NO DME needs identified Medications: No medication or dose adjustments made during acute episode Subjective: Condition Status: No change in symptoms Current Concerns: Seen by EMILE yesterday Reported rash-EMILE took photos Was instructed to use hydrocortisone cream Spoke with patient States the rash is still present Just woke up Still using hydrocortisone cream As of right now denies any needs or concerns If rash appears worse today, advised to call back If not, aware we will be calling again tomorrow Disposition: Issue resolved. All appropriate follow up scheduled. Future Visits Scheduled: Future Appointments-next 60 days Date/Time Provider Specialty Dept Phone 03/18/2022 11[facility] [phone] 03/19/2022 9:30 AM Nurse [facility] [phone] 03/22/2022 9:00 AM July Poe RN [facility] [phone] 03/25/2022 3:40 PM (Arrive by 3:25 PM) Reynaldo Marquez MD Pulmonary [phone] 03/30/2022 2:00 PM Chair [address] [facility] H[facility] Oncology [phone] 04/06/2022 2:00 PM [facility] Sp Pharmacist1 Pharmacy [phone] 04/11/2022 9:30 AM [facility] Code Enforcement Officer Family Medicine [phone] 04/20/2022 1:45 PM (Arrive by 1:30 PM) Tono Sanchez MD Hematology Oncology [phone] 04/20/2022 2:15 PM Chair 3 Hem Onc Scenery [place] Hematology Oncology [phone] 04/26/2022 4:00 PM Alberta Duque PA-C Endocrinology [phone] 04/28/2022 1:30 PM (Arrive by 1:15 PM) ZAK Bolton Gastroenterology [phone] 05/05/2022 1:00 PM (Arrive by 12:45 PM) ZAK Rangel Cardiology [phone] 05/30/2022 5:00 PM (Arrive by 4:45 PM) Susan Jara MD Gynecology Obstetrics [phone] 06/24/2022 1:20 PM Love Francisco DO Sleep Disorders [phone] 07/04/2022 2:30 PM (Arrive by 2:15 PM) Concetta Khan MD Gynecology Obstetrics [phone] Dorothy Walker LPN Telehealth Scheduling Guidelines Current Health Monitor Ordering Guidelines documented in this encounter Plan of Treatment Upcoming Encounters Date Type Specialty Care Team Description 03/19/2022 Scheduled Telephone [facility] [place], Nurse [facility] [address] 03/22/2022 Home Visit [facility] July Poe RN [facility] [address] 03/25/2022 Office Visit Pulmonary Reynaldo Marquez MD [address] [place] [address] 03/30/2022 Hem/Onc Treatment Hematology Oncology [place], Chair 5 Hem Onc [facility] 200 [facility] [address] 04/06/2022 Office Visit Pharmacy Pharmacist1, [facility] 200 [facility] [address] 04/11/2022 Home Visit Family Medicine Kaylee Barakat, Community [facility] Code Enforcement Officer [address] [place] [address] 04/20/2022 Office Visit Hematology Oncology Tono Sanchez MD 200 [place] [address] 04/20/2022 Hem/Onc Treatment Hematology Oncology [place], Chair [address] [address] 04/26/2022 Telemedicine Endocrinology Alberta Duque PA-C [address] [place], [place] [id number] 04/28/2022 Office Visit Gastroenterology Lyssa Stout CRNP [address] [place] [address] 05/05/2022 Office Visit Cardiology Quyen Canseco CRNP 132 [facility] [place] [address] 05/30/2022 Office Visit Gynecology Obstetrics Susan [facility] MD [address] [facility] [address] 06/24/2022 Office Visit Sleep Disorders Love Francisco DO 132 [facility] [place] [address] 07/04/2022 Office Visit Gynecology Obstetrics Concetta Khan MD 400 [facility] [place] [address] Scheduled Procedures Name Priority Associated Diagnoses Date/Ti [...] Over 07/27/2021 07/27/2020, 12/09/2015, 10/20/2014 COVID-19 Vaccine (4 - Booster for Moderna series) 11/23/2021 07/26/2021, 12/21/2020, 11/23/2020 *URINE ALBUMIN/CREATININE RATIO ONCE FOR HTN 01/14/2022 [...] 09/09/2022 09/09/2021, 09/08/2020, 09/02/2019, Additional history exists BASIC METABOLIC PANEL (BMP) FOR HTN YEARLY 12/20/2022 12/20/2021, 12/18/2021, 09/23/2021, Additional history exists COLONOSCOPY-EVERY 5 YRS AGES 18-100 06/03/2025 06/03/2020, 06/03/2020, 03/17/2020, Additional history exists DTaP,Tdap,and Td Vaccines (3 - Td or Tdap) 05/01/2027 05/01/2017, 05/26/2008 GARDASIL-HPV IMMUNIZATION SERIES Aged Out No longer eligible based on patient's age to complete this topic MENINGOCOCCAL (MENACTRA/MENVEO) Aged Out No longer eligible based on patient's age to complete this topic documented as of this encounter Implants Implanted Type Area Calf Skinner Device Identifier Shelf Expiration Date Model / Serial / Lot Microtech Sure Clip Implanted:Qty: 2 on 06/03/2020 by Janis Hatch DO at OR [facility] Clip N/A: Colon 04/21/2022 [facility]-F-26-2 35-C-R / / [id number] documented as of this encounter Advance Directives Documents on File Type Date Recorded Patient Ophthalmic Medical Technologist 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 WILL AND HEALTH CARE POA Power of E/M Engineer 04/29/2021 12:00 AM TOM R OF ELECTRONIC IMAGING SYSTEM OPERATOR HEALTH CARE POA Advanced Directive 04/01/2021 [...] Bustos Spouse Emergency Contact Care Teams Credit Card Interviewer Relationship Specialty Start Date End Date Vanita Dunn MD [address] [place] [address] PCP - General Family Medicine 03/16/21 documented as of this encounter
--- OUTSIDE RECORDS SUMMARY | 2023-05-10 18:44 | External Medical Summary | Summary of Care ---
Author Name Unknown Organization [facility] Address [place] [address] Care Team Providers Care Surveyor Rod Helper Name Role Phone Vanita Dunn MD Primary Care Provid er Reason for Visit * Reason Onset Date Comments [facility]: Maintenance 03/19/2022 Encounter Details Date Type Department Care Team Description 03/19/2022 Scheduled Telephone [facility], [facility] 132 [facility] [place] [address] [facility], Nurse [facility] 132 [facility] [place] [address] 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 documented as of this encounter (statuses as of 03/19/2022) Medications Medication Sig Dispensed Refills Start Date End Date Status nystatin (NYSTOP) 680396 UNIT/GM powder Apply topically to affected area 3 times a day. 60 g 1 10/16/2019 Active Dexcom G6 Research Phlebotomist Device Use as directed. To test blood sugars 4 times a day Dx E11.9 1 Each 0 09/14/2020 Active Dexcom G6 Transmitter Use as directed. To test blood sugars 4 times a day. Change every 90 days. Dx E11.9 1 Each 3 09/14/2020 Active OneTouch Verio In Vitro Strip (Glucose Blood) TESTING once daily 100 Strip 3 10/29/2020 Active OneTouch Delica Plus [id number] TESTING once daily 100 Each 3 10/29/2020 [...] as of this encounter (statuses as of 03/19/2022) Active Problems Problem Noted Date Chronic diastolic [...] as of this encounter (statuses as of 03/19/2022) Resolved Problems Problem Noted Date Resolved Date [...] pain 01/24/2012 01/17/2017 Genetic Sleep Disorder Research Other*[id number] 05/13/2011 04/07/2016 Obstructive sleep apnea 01/18/2011 12/27/19 [...] as of this encounter (statuses as of 03/19/2022) Immunizations Name Administration Dates Next Due COVID-19 [...] Telephone Encounter - Alyce Tyler RN - 03/19/2022 9:17 AM EDT Phone call placed to pt to follow up with rash that was noted on pt's back. Pt was instructed to use hydrocortisone cream. I spoke to pt's spouse. He reports that the rash seems to be getting a little better. Rash has not spread or worsened. Pt still c/o itchiness from it. Spouse is applying the hydrocortisone cream. Spouse denies any acute needs or concerns at this time. [facility] HV scheduled for 03/22/22 Spouse encouraged to call [facility] for any changes. documented in this encounter Plan of Treatment Upcoming Encounters Date Type Specialty Care Team Description 03/22/2022 [facility] July Poe RN 132 [facility] [place] [address] 03/25/2022 Office Visit Pulmonary Reynaldo Marquez MD [address] [place] [id number] 03/30/2022 Hem/Onc Treatment Hematology Oncology [place], Chair 5 Hem Onc Sc[address] [place] [address] 04/06/2022 Office Visit Pharmacy Pharmacist1, [facility] Sp 200 [place] [address] 04/11/2022 Home Visit Family Medicine Kaylee Barakat, Community Health Dinkey Motor Operator [address] [place] [address] 04/20/2022 Office Visit Hematology Oncology Tono Sanchez MD [address] [place] [address] 04/20/2022 Hem/Onc Treatment Hematology Oncology [place], Chair 3 Hem Onc [facility] 200 [place] [address] 04/26/2022 Telemedicine Endocrinology Alberta Duque PA-C [address] [place] [address] 04/28/2022 Office Visit Gastroenterology Lyssa Stout CRNP 132 [facility] [place] [address] 05/05/2022 Office Visit Cardiology Quyen Canseco CRNP 132 [facility] [place] [address] 05/30/2022 Office Visit Gynecology Obstetrics Susan Jara MD 400 [facility] [place] [address] 06/24/2022 Office Visit Sleep Disorders Love Francisco DO [facility] [place] [address] 07/04/2022 Office Visit Gynecology Obstetrics Concetta Khan MD 400 [facility] [place] [address] Scheduled Procedures Name Priority Associated Diagnoses Date/Ti [...] of this encounter Implants Implanted Type Area Hoseman Device Identifier Shelf Expiration Date Model / Serial / Lot Microtech Sure Clip Implanted:Qty: 2 on 06/03/2020 by Janis Hatch DO at OR [facility] Clip N/A: Colon 04/21/2022 [facility]-F-26-2 35-C-R / / [id number] documented as of this encounter Advance Directives Documents on File Type Date Recorded Patient Boat Repairer 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 WILL AND HEALTH CARE POA Power of Distribution Lead 04/29/2021 12:00 AM TOM R OF MACHINE BUNCH MAKER HEALTH CARE POA Advanced Directive 04/01/2021 1:14 [...] Agents on File Name Relationship Healthcare Agent Romainca p Communication Syed Bustos Spouse Emergency Contact Care Teams Surveyor Rod Helper Relationship Specialty Start Date End Date Vanita Dunn MD [address] [place] [address] PCP - General Family Medicine 03/16/21 documented as of this encounter
--- OUTSIDE RECORDS SUMMARY | 2023-05-10 18:44 | External Medical Summary | Summary of Care ---
Author Name Unknown Organization [place] [address] Care Team Providers Care Shale Miner Name Role Phone Vanita Dunn MD Primary Care Provid er Reason for Visit * Reason Onset Date Comments Appointment 03/22/2022 Encounter Details Date Type Department Care Team Description 03/22/2022 Telephone [facility], [place] [facility]7 [place] [address] Services, Scheduling [address] [place] [address] Appointment 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 documented as of this encounter (statuses as of 03/22/2022) Medications Medication Sig Dispensed Refills Start Date End Date Status nystatin (NYSTOP) 203480 UNIT/GM powder Apply topically to affected area 3 times a day. 60 g 1 10/16/2019 Active Dexcom G6 Tile Fitter Device Use as directed. To test blood sugars 4 times a day Dx E11.9 1 Each 0 09/14/2020 Active Dexcom G6 Transmitter Use as directed. To test blood sugars 4 times a day. Change every 90 days. Dx E11.9 1 Each 3 09/14/2020 Active OneTouch Verio In Vitro Strip (Glucose Blood) TESTING once daily 100 Strip 3 10/29/2020 Active OneTouch Delica Plus [id number] TESTING once daily 100 Each 3 10/29/2020 [...] as of this encounter (statuses as of 03/22/2022) Active Problems Problem Noted Date Chronic diastolic [...] as of this encounter (statuses as of 03/22/2022) Resolved Problems Problem Noted Date Resolved Date [...] pain 01/24/2012 01/17/2017 Genetic Sleep Disorder Research Other*[id number] 05/13/2011 04/07/2016 Obstructive sleep apnea 01/18/2011 12/27/19 [...] as of this encounter (statuses as of 03/22/2022) Immunizations Name Administration Dates Next Due COVID-19 [...] * Telephone Encounter - THAD Graves - 03/22/2022 11:09 AM EDT Called to reschedule today's appt with July ZEPEDA to 03/29@10am and it was agreeable with CG documented in this encounter Plan of Treatment Upcoming Encounters Date Type Specialty Care Team Description 03/25/2022 Office Visit Pulmonary Reynaldo Marquez MD [address] [place] [facility] [place] [address] 03/29/2022 Home Visit [facility] July Poe RN 132 [place] [address] 03/30/2022 Hem/Onc Treatment Hematology Oncology [place], Chair [address] [address] 04/06/2022 Office Visit Pharmacy Pharmacist1, [facility] [address] [facility] [address] 04/11/2022 Home Visit Family Medicine Kaylee Barakat, Community [facility] Ticket Printer And Tagger [address] [place] [address] 04/20/2022 Office Visit Hematology Oncology Tono Sanchez MD 200 [place] [address] 04/20/2022 Hem/Onc Treatment Hematology Oncology [place], Chair 3 Hem Onc Scenery [address] [place] [address] 04/26/2022 Telemedicine Endocrinology Alberta Duque PA-C [address] [place] [address] 04/28/2022 Office Visit Gastroenterology Lyssa Stout CRNP [address] [facility] [address] 05/05/2022 Office Visit Cardiology Quyen Canseco CRNP [address] [facility] [address] 05/30/2022 Office Visit Gynecology Obstetrics Susan Jara MD [address] [place] [address] 06/24/2022 Office Visit Sleep Disorders Love Francisco DO [address] [place] [address] 07/04/2022 Office Visit Gynecology Obstetrics Concetta Khan MD 400 [place] [address] Scheduled Procedures Name Priority Associated Diagnoses Date/Ti [...] this encounter Implants Implanted Type Area Electronic Maintenance Supervisor Device Identifier Shelf Expiration Date Model / Serial / Lot Microtech Sure Clip Implanted:Qty: 2 on 06/03/2020 by Janis Hatch DO at OR [facility] Clip N/A: Colon 04/21/2022 [facility]-F-26-2 35-C-R / / [id number] documented as of this encounter Advance Directives Documents on File Type Date Recorded Patient Cleaning Specialist 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 WILL AND HEALTH CARE POA Power of Student Development Coordinator 04/29/2021 12:00 AM TOM R OF MANAGER OF PROCUREMENT [facility] CARE POA Advanced Directive 04/01/2021 1:14 [...] Agent [facility] Communication Syed Bustos Spouse Emergency Contact Care Teams Shale Miner Relationship Specialty Start Date End Date Vanita Dunn MD [address] [place] [phone] PCP - General Family Medicine 03/16/21 documented as of this encounter
--- OUTSIDE RECORDS SUMMARY | 2023-05-10 18:44 | External Medical Summary | Summary of Care ---
Author Name Unknown Organization [facility] [place] [address] Care Team Providers Care Attendant Honor Bar Name Role Phone Kojo Dunn MD Primary Care Provid er Reason for Visit * Reason Onset Date Comments Medication Refill 03/21/2022 Encounter Details Date Type Department Care Team Description 03/21/2022 Refill [facility] [address] [place] [address] Kojo Dunn MD [address] [place] [address] 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 documented as of this encounter (statuses as of 03/24/2022) Medications Medication Sig Dispensed Refills Start Date End Date Status nystatin (NYSTOP) 474355 UNIT/GM powder Apply topically to affected area 3 times a day. 60 g 1 10/16/2019 Active Dexcom G6 Selling Manager Device Use as directed. To test blood sugars 4 times a day Dx E11.9 1 Each 0 09/14/2020 Active Dexcom G6 Transmitter Use as directed. To test blood sugars 4 times a day. Change every 90 days. Dx E11.9 1 Each 3 09/14/2020 Active OneTouch Verio In Vitro Strip (Glucose Blood) TESTING once daily 100 Strip 3 10/29/2020 Active OneTouch Delica Plus [id number] TESTING once daily 100 Each 3 10/29/2020 [...] disease with chronic diastolic congestive heart failure ([facility]),Hepatic cirrhosis, unspecified hepatic cirrhosis type, unspecified whether ascites present ([facility]),Other cerebral palsy ([facility]),Urinary incontinence, unspecified type,Frequent fecal incontinence Use as [...] s:Recurrent major depressive disorder, in partial remission ([facility]) TAKE 1 TABLET BY MOUTH DAILY 90 [...] before supper 1 Each 11 03/24/2022 Active NovoLOG FlexPen 100 UNIT/ML Subcutaneous Solution Pen-injector Inject under the skin three times a day before meals. 32 Units at breakfast, 36 Units before lunch, 36 Units before supper 0 03/24/2021 2 Discontinu ed(Refill) documented as of this encounter (statuses as of 03/24/2022) Active Problems Problem Noted Date Chronic diastolic [...] as of this encounter (statuses as of 03/24/2022) Resolved Problems Problem Noted Date Resolved Date [...] pain 01/24/2012 01/17/2017 Genetic Sleep Disorder Research Other*[id number] 05/13/2011 04/07/2016 Obstructive sleep apnea 01/18/2011 12/27/19 [...] as of this encounter (statuses as of 03/24/2022) Immunizations Name Administration Dates Next Due COVID-19 [...] Telephone Encounter - Kojo Dunn MD - 03/24/2022 8:36 AM EDT Signed Prescriptions: Disp Refills NovoLOG FlexPen 100 UNIT/ML Subcutaneous S*1 Each 11 Si Units at breakfast, 36 Units before lunch, 36 Units before supper Authorizing Provider: KOJO DUNN * Telephone Encounter - Melissa Galicia LPN - 03/21/2022 8:00 AM EDT Did you pend patient's preferred pharmacy and medication before forwarding?yes Pharmacy: [id number] Pending Prescriptions: Disp Refills NovoLOG FlexPen 100 UNIT/ML Subcutaneous *1 Each Sig: Inject under the skin three times a day before meals . 32 Units at breakfast, 36 Units before lunch, 36 Units before supper Last Visit: 12/15/2021 (in office), 09/17/2021 (telemedicine) Next Visit: Visit date not found If no future appointments scheduled, and last appointment is greater than a year ago, please schedule patient for a follow-up appointment Last date the medication was ordered: 03/24/2021 Is this request for a controlled substance?No [...] Marquez MD [address] [place] [address] 03/29/2022 Home Visit [facility] July Poe RN [address] [place] [address] 03/30/2022 Hem/Onc Treatment Hematology Oncology [place], Chair 5 Hem Onc Scenery [address] [place] [address] 04/06/2022 Office Visit Pharmacy Pharmacist1, [facility] 200 [place] [address] 04/11/2022 Home Visit Family Medicine Kaylee Barakat, Community Health Personal Development Educator [address] [place] [address] 04/20/2022 Office Visit Hematology Oncology Tono Sanchez MD 200 [place] [address] 04/20/2022 Hem/Onc Treatment Hematology Oncology [place], Chair 3 Hem Onc Scenery [address] [place] [address] 04/26/2022 Telemedicine Endocrinology Alberta Duque PA-C [address] [place] [address] 04/28/2022 Office Visit Gastroenterology Lyssa Stout CRNP 132 [place] [address] 05/05/2022 Office Visit Cardiology Quyen [facility]seco CR[facility] [address] 05/30/2022 Office Visit Gynecology Obstetrics Susan Jara MD [address] [place] [address] [place] [address] 06/24/2022 Office Visit Sleep Disorders Love Francisco DO 132 [facility] [place] [address] 07/04/2022 Office Visit Gynecology Obstetrics Concetta Khan MD [address] [place] [address] [place] [address] Scheduled Procedures Name Priority Associated Diagnoses [...] of this encounter Implants Implanted Type Area Flame Brazing Machine Operator Device Identifier Shelf Expiration Date Model / Serial / Lot Microtech Sure Clip Implanted:Qty: 2 on 06/03/2020 by Janis Hatch DO at OR [facility] Clip N/A: Colon 04/21/2022 [facility]-F-26-2 35-C-R / / [id number] documented as of this encounter Advance Directives Documents on File Type Date Recorded Patient Entry Level Project Engineer 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 WILL AND HEALTH CARE POA Power of Resin Filterer 04/29/2021 12:00 AM TOM R OF BURGLAR ALARM INSTALLER HEALTH CARE POA Advanced Directive 04/01/2021 1:14 [...] Syed Bustos Spouse Emergency Contact Care Teams Attendant Honor Bar Relationship Specialty Start Date End Date Kojo Dunn MD [address] [place] [address] PCP - General Family Medicine 03/16/21 documented as of this encounter
--- OUTSIDE RECORDS SUMMARY | 2023-05-10 18:45 | External Medical Summary | Summary of Care ---
Author Name Unknown Organization [place] [address] Care Team Providers Care Geophysical Laboratory Director Name Role Phone Vanita Dunn MD Primary Care Provid er Reason for Visit * Reason Comments [facility]: Maintenance Encounter Details Date Type Department Care Team Description 03/17/2022 Home Visit Care Coordination [address] [place] [address] Kaylee Barakat, Community Health Flatbed Company Driver [address] [place] [address] 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 documented as of this encounter (statuses as of 03/17/2022) Medications Medication Sig Dispensed Refills Start Date End Date Status nystatin (NYSTOP) 759108 UNIT/GM powder Apply topically to affected area 3 times a day. 60 g 1 10/16/2019 Active Dexcom G6 Accordion Maker Device Use as directed. To test blood sugars 4 times a day Dx E11.9 1 Each 0 09/14/2020 Active Dexcom G6 Transmitter Use as directed. To test blood sugars 4 times a day. Change every 90 days. Dx E11.9 1 Each 3 09/14/2020 Active OneTouch Verio In Vitro Strip (Glucose Blood) TESTING once daily 100 Strip 3 10/29/2020 Active OneTouch Delica Plus [id number] TESTING once daily 100 Each 3 10/29/2020 [...] as of this encounter (statuses as of 03/17/2022) Active Problems Problem Noted Date Chronic diastolic [...] as of this encounter (statuses as of 03/17/2022) Resolved Problems Problem Noted Date Resolved Date [...] pain 01/24/2012 01/17/2017 Genetic Sleep Disorder Research Other*[id number] 05/13/2011 04/07/2016 Obstructive sleep apnea 01/18/2011 12/27/19 [...] as of this encounter (statuses as of 03/17/2022) Immunizations Name Administration Dates Next Due COVID-19 [...] of this encounter Progress Notes * Kaylee Barakat [facility] Flatbed Company Driver - 03/17/2022 2:48 PM EDT Images from the original note were not included. EMILE deployed to collect photo of patient C/O rash on back. medical affairs manager reporting the rash was not there Monday when she left.The rash was noted on Monday when she returned.Patient and where outside over the weekend cleaning out weeds and yard trash. did not wash hands or glove when changing patient. Patient reporting itching less.Caregiver reporting less red she has been applying hydrocortisone cream heavily to the area. Kaylee Barakat CHA Electronically signed by Kaylee Barakat [facility] Flatbed Company Driver at 03/17/2022 2:58 PM EDT documented in this encounter Plan of Treatment Upcoming Encounters Date Type Specialty Care Team Description 03/18/2022 Scheduled Telephone [facility] Crops Supervisor, [facility] 132 [facility] [place] [address] 03/19/2022 Scheduled Telephone [facility], Nurse [facility] [address] [place] [address] 03/22/2022 Home Visit [facility] July Poe RN 132 [place] [address] 03/25/2022 Office Visit Reynaldo Marks MD [address] [place] [address] 03/30/2022 Hem/Onc Treatment Hematology Oncology [place], Chair 5 Hem Onc [facility] 200 [place] [address] 04/06/2022 Office Visit Pharmacy Pharmacist1, [facility] 200 [place] [address] 04/11/2022 Home Visit Family Medicine Kaylee Barakat, Community Health Flatbed Company Driver [address] [place] [address] 04/20/2022 Office Visit Hematology Oncology Tono Sanchez MD 200 [place] [address] 04/20/2022 Hem/Onc Treatment Hematology Oncology [place], Chair 3 Hem Onc [facility] 200 [place] [address] 04/26/2022 Telemedicine Endocrinology Alberta Duque PA-C [address] [place] [address] 04/28/2022 Office Visit Gastroenterology Lyssa Stout CRNP 132 [facility] [place] [address] 05/05/2022 Office Visit Cardiology [facility]en [facility]o [facility]NP [address] [facility] [place] [address] 05/30/2022 Office Visit Gynecology Obstetrics Susan Jara MD [address] [place] [address] [place] [address] 06/24/2022 Office Visit Sleep Disorders Love Francisco DO [address] [facility] [place] [address] 07/04/2022 Office Visit Gynecology Obstetrics Concetta Khan MD [address] [place] [address] [place] [facility] Scheduled Procedures Name Priority Associated Diagnoses Date/Ti [...] of this encounter Implants Implanted Type Area Patient Service Technician Pst Device Identifier Shelf Expiration Date Model / Serial / Lot Microtech Sure Clip Implanted:Qty: 2 on 06/03/2020 by Janis Hatch DO at OR [facility] Clip N/A: Colon 04/21/2022 [facility]-F-26-2 35-C-R / / [id number] documented as of this encounter Advance Directives Documents on File Type Date Recorded Patient Selector Packer 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 WILL AND HEALTH CARE POA Power of Paste Mixer 04/29/2021 12:00 AM TOM R OF CERTIFIED DIALYSIS TECHNICIAN HEALTH CARE POA Advanced Directive 04/01/2021 [...] Agents on File Name Relationship Healthcare Agent [facility] p Communication Syed Bustos Spouse Emergency Contact Care Teams Geophysical Laboratory Director Relationship Specialty Start Date End Date Vanita Dunn MD [address] [place], [place] [phone] PCP - General Family Medicine 03/16/21 documented as of this encounter
--- OUTSIDE RECORDS SUMMARY | 2023-05-10 18:45 | External Medical Summary | Summary of Care ---
Author Name Unknown Organization [place] [address] Care Team Providers Care Boiler Fitter Name Role Phone Vanita Dunn MD Primary Care Provid er Reason for Visit * Reason Comments IV Therapy Venofer Encounter Details Date Type Department Care Team Description 03/09/2022 Hem/Onc Treatment Hematology/Oncology Treatment, [place] [address] [place] [address] [place], Chair 8 Hem Onc Scenery [address] [facility] [place] [address] Iron deficiency anemia due to chronic blood loss* 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 documented as of this encounter (statuses as of 03/09/2022) Medications Medication Sig Dispensed Refills Start Date End Date Status nystatin (NYSTOP) 607533 UNIT/GM powder Apply topically to affected area 3 times a day. 60 g 1 10/16/2019 Active Dexcom G6 General Maintenance Engineer Device Use as directed. To test blood sugars 4 times a day Dx E11.9 1 Each 0 09/14/2020 Active Dexcom G6 Transmitter Use as directed. To test blood sugars 4 times a day. Change every 90 days. Dx E11.9 1 Each 3 09/14/2020 Active OneTouch Verio In Vitro Strip (Glucose Blood) TESTING once daily 100 Strip 3 10/29/2020 Active OneTouch Delica Plus Uajecu30H TESTING once daily 100 Each 3 10/29/2020 [...] TIMES DAILY. 400 Each 3 08/23/2021 Active Aspirin 81 MG Oral Tablet Chewable CHEW AND SWALLOW 1 TABLET BY MOUTH ONCE DAILY 30 Tablet 5 08/30/2021 Active Benzonatate 100 MG Oral Capsule (Tessalon [...] as of this encounter (statuses as of 03/09/2022) Active Problems Problem Noted Date Chronic diastolic [...] as of this encounter (statuses as of 03/09/2022) Resolved Problems Problem Noted Date Resolved Date [...] pain 01/24/2012 01/17/2017 Genetic Sleep Disorder Research Other*[id number] 05/13/2011 04/07/2016 Obstructive sleep apnea 01/18/2011 12/27/19 [...] as of this encounter (statuses as of 03/09/2022) Immunizations Name Administration Dates Next Due COVID-19 [...] Sign Reading Time Taken Comments Blood Pressure 110/63 03/09/2022 2:10 PM EDT Pulse 74 03/09/2022 2:10 PM EDT Temperature 36.5 C (97.7 F) 03/09/2022 2:10 PM ED T Respiratory Rate 20 03/09/2022 2:10 PM EDT Oxygen Saturation 92% 03/09/2022 2:10 PM EDT Inhaled Oxygen Concentration - - [...] Nursing Notes * Shelli Barakat RN - 03/09/2022 4:25 PM EDT Goals: Patient will remain free from injury. Possible barriers to meeting goals: use of motor scooter to ambulate, ambulating with IV pole if needed Stability of the patient: Moderately stable - low risk of patient condition declining or worsening Summary regarding today's goals: Met: Patient remained free of harm today Patient tolerated treatment well without any acute issues or problems. Patient left facility in stable condition and denied any further needs. * Shelli Barakat RN - 03/09/2022 3:23 PM EDT Chair 9. Port accessed without difficulty. Safety and Risk for Injury Patient will remain free from injury. Ensure appropriate safety devices are available. Provide and maintain safe environment. documented in this encounter Plan of Treatment Upcoming Encounters Date Type Specialty Care Team Description 03/22/2022 Home Visit [facility] July Poe, RN [address] [place] [address] 03/24/2022 Office Visit Pulmonary Reynaldo Marquez MD [address] [facility] [place] [id number] 03/30/2022 Hem/Onc Treatment Hematology Oncology [place], Chair 5 Hem Onc Scenery [address] [place] [address] 04/06/2022 Office Visit Pharmacy Pharmacist1, [facility] 200 [place] [address] 04/11/2022 Home Visit Family Medicine Kaylee Barakat, Community Health Plush Dresser [address] [place] [address] 04/20/2022 Office Visit Hematology Oncology Tono Sanchez MD 200 [place] [address] 04/20/2022 Hem/Onc Treatment Hematology Oncology [place], Chair 3 Hem Onc Scenery [address] [place] [address] 04/26/2022 Telemedicine Endocrinology Alberta Duque PA-C [address] [place] [address] 04/28/2022 Office Visit Gastroenterology Lyssa Stout CRNP [address] [place] [address] 05/05/2022 Office Visit Cardiology Quyen Canseco CRNP [address] [place] [address] 05/30/2022 Office Visit Gynecology Obstetrics Susan Jara MD [address] [place] [address] 06/24/2022 Office Visit Sleep Disorders Love Francisco, DO [address] [address] 07/04/2022 Office Visit Gynecology Obstetrics Concetta Khan MD [address] [place] [phone] Scheduled Procedures Name Priority Associated Diagnoses Date/Ti [...] 04/05/2021, 0 11/06/2019, 01/09/2019, Additional history exists TSH FOR THYROID MEDICATION [...] - Td or Tdap) 05/01/2027 05/01/2017, 05/26/2008 Influenza Vaccine (FLU shot) Completed , 06/01/2020, 06/05/2019, Additional history exists GARDASIL-HPV IMMUNIZATION SERIES Aged Out No longer eligible based on patient's age to complete this topic MENINGOCOCCAL (MENACTRA/MENVEO) Aged Out No longer eligible based on patient's age to complete this topic documented as of this encounter Implants Implanted Type Area Coremaker Floor Device Identifier Shelf Expiration Date Model / Serial / Lot Microtech Sure Clip Implanted:Qty: 2 on 06/03/2020 by Janis Hatch DO at OR [facility] Clip N/A: Colon 04/21/2022 [facility]-F-26-2 35-C-R / / [id number] documented as of this encounter Visit Diagnoses [...] ONCE PRN Other, Hypersensitivity Reaction, Starting on 03/09/22 at 1424, Until [place] 03/10/22 at 1423, For 24 hours EPINEPHrine 1 MG/ML inj 0.3 mg 0.3 mg, Intramuscular, ONCE PRN Other, Hypersensitivity Reaction or Anaphylaxis, Starting on Mon03/09/22 at 1424, Until [place] 03/10/22 at 1423, For 24 hours hEParin 100 UNIT/ML Lock Flush inj 500 Units 500 Units (5 mL), IV Lock, PRN Other, IV Flush, Starting on Mon03/09/22 at 1424, Until [place] 03/10/22 at 1423, For 24 hours, Do not flush if lock, PICC, or central line not in place; IV infusing or unable to flush. Given 03/09/2022 3:58 PM EDT 500 Units Hydrocortisone Na Succinate PF (Solu-Cortef) inj 100 mg 100 mg, IV Push, ONCE PRN Other, Hypersensitivity Reaction, Starting on Mon03/09/22 at 1424, Until [place] 03/10/22 at 1423, For 24 hours NSS infusion 500 mL, Intravenous, at 50 mL/hr, CONTINUOUS, Starting on Mon03/09/22 at 1530, Until [place] 03/10/22 at 0129 Start Infusion 03/09/2022 2:26 PM EDT 500 mL 50 mL/hr sodium chloride 0.9 % flush/inj 10 mL 10 mL, IV Push, PRN Other, IV Flush, Starting on Mon03/09/22 at 1424, Until [place] 03/10/22 at 1423, For 24 hours, Do not flush if lock, PICC, or central line not in place; IV infusing or unable to flush. Given 03/09/2022 3:58 PM EDT 10 mL Inactive Administered Medications - up to 3 most recent administrations Medication Order MAR Action Action Date Dose Rate Site Iron Sucrose (Venofer) 300 mg in NSS 250 mL ivpb 300 mg, IV Piggyback, ONCE, 1 dose, On Mon03/09/22 at 1600, Administer over 90 Minutes Start Infusion 03/09/2022 2:26 PM EDT 300 mg 166.67 mL/hr documented in this encounter Advance Directives Documents on File Type Date Recorded Patient Sanding Machine Tender Automatic 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 WILL AND HEALTH CARE POA Power of Dumper Operator 04/29/2021 12:00 AM TOM R OF FOOD AND DRUG INSPECTOR HEALTH CARE POA Advanced Directive 04/01/2021 1:14 [...] File Name Relationship [facility] Communication Syed Bustos Spouse Emergency Contact Care Teams Boiler Fitter Relationship Specialty Start Date End Date Vanita Dunn MD [address] [place], [place] [id number] PCP - General Family Medicine 03/16/21 documented as of this encounter
--- OUTSIDE RECORDS SUMMARY | 2023-05-10 18:46 | External Medical Summary | Summary of Care ---
Author Name Unknown Organization [facility] Address [place] [address] Care Team Providers Care Technician Name Role Phone Vanita Dunn MD Primary Care Provid er Encounter Details Date Type Department Care Team Description 02/28/2022 Scan Encounter [facility] [address] [place] [address] Vanita Dunn MD [address] [place] [address] <No scans attached> 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 documented as of this encounter (statuses as of 03/08/2022) Medications Medication Sig Dispensed Refills Start Date End Date Status nystatin (NYSTOP) 907891 UNIT/GM powder Apply topically to affected area 3 times a day. 60 g 1 10/16/2019 Active Dexcom G6 Profiling Machine Operator Device Use as directed. To [...] Strip 3 10/29/2020 Active OneTouch Delica Plus [id number] TESTING once daily 100 Each 3 10/29/2020 [...] as of this encounter (statuses as of 03/08/2022) Active Problems Problem Noted Date Chronic diastolic [...] as of this encounter (statuses as of 03/08/2022) Resolved Problems Problem Noted Date Resolved Date [...] pancreas 02/15/2021 10/01/2021 AMS (altered mental status) 02/04/202101/102021 Cardiomegaly 01/30/2021 09/13/2021 SOB (shortness of breath) [...] pain 01/24/2012 01/17/2017 Genetic Sleep Disorder Research Other*[id number] 05/13/2011 04/07/2016 Obstructive sleep apnea 01/18/2011 12/27/19 [...] as of this encounter (statuses as of 03/08/2022) Immunizations Name Administration Dates Next Due COVID-19 [...] Encounters Date Type Specialty Care Team Description 03/08/2022 Laboratory Laboratory [place] [facility] Draw [address], [place] [phone] Thrombocytopenia (HCC) 03/09/2022 Laboratory Laboratory [place], Lab Scenery [address] [place] [address] 03/09/2022 Hem/Onc Treatment Hematology Oncology [place], Chair 8 Hem Onc Scenery [address] [place] [address] 03/16/2022 Hem/Onc Treatment Hematology Oncology [place], Chair 2 Hem Onc Scenery [address] [place] [address] 03/22/2022 Home Visit [facility] July Poe RN [address] [place] [address] 03/24/2022 Office Visit Reynaldo Marks MD [address] [place] [id number] 04/06/2022 Laboratory Laboratory [place], Lab Scenery [address] [place] [address] 04/06/2022 Office Visit Hematology Oncology Tono Sanchez MD 200 [place] [address] 04/06/2022 Hem/Onc Treatment Hematology Oncology [place], Chair [address] [address] 04/06/2022 Office Visit Pharmacy Pharmacist1, [facility] Sp [address] [place] [address] 04/11/2022 Home Visit Family Medicine Kaylee Barakat, [facility] [employer] Salesperson [address] [place] [address] 04/26/2022 Telemedicine Endocrinology Alberta Duque PA-C [address] [place] [address] 04/28/2022 Office Visit Gastroenterology Lyssa Stout CRNP [address] [place] [address] 05/05/2022 Office Visit Cardiology Quyen Canseco CRNP 132 [place] [address] 05/30/2022 Office Visit Gynecology Obstetrics [facility] [place] [address] 06/24/2022 Office Visit [facility] Disorders [facility] Francisco DO [facility] [place] [address] 07/04/2022 Office Visit Gynecology Obstetrics Concetta Khan [facility] [address] [facility] [place] [address] Scheduled Procedures Name Priority Associated Diagnoses [...] of this encounter Implants Implanted Type Area Engineer Technician Device Identifier Shelf Expiration Date Model / Serial / Lot Microtech Sure Clip Implanted:Qty: 2 on 06/03/2020 by Janis Hatch DO at OR H Clip N/A: Colon 04/21/2022 [facility]-F-26-2 35-C-R / / [id number] documented as of this encounter Advance Directives Documents on File Type Date Recorded Patient Operations Assistant 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 WILL AND HEALTH CARE POA Power of Shank Sorter 04/29/2021 12:00 AM TOM R OF PUBLIC INFORMATION SPECIALIST HEALTH CARE POA Advanced Directive 04/01/2021 [...] Bustos Spouse Emergency Contact Care Teams Technician Relationship Specialty Start Date End Date Vanita Dunn MD [address] [place] [address] PCP - General Family Medicine 03/16/21 documented as of this encounter
--- OUTSIDE RECORDS SUMMARY | 2023-05-10 18:46 | External Medical Summary | Summary of Care ---
Author Name Unknown Organization [place] [address] Care Team Providers Care Optical Manager Name Role Phone Vanita Dunn MD Primary Care Provid er Reason for Visit * Reason Comments Post-Op Encounter Details Date Type Department Care Team Description 03/03/2022 Office Visit Gynecology/Obstetrics [facility] [address] [facility] [place] [address] Concetta Khan MD [address] [place], [place] [phone] PMB (postmenopausal bleeding)*; Iron deficiency anemia due to chronic blood loss 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 documented as of this encounter (statuses as of 03/03/2022) Medications Medication Sig Dispensed Refills Start Date End Date Status nystatin (NYSTOP) 381474 UNIT/GM powder Apply topically to affected area 3 times a day. 60 g 1 10/16/2019 Active Dexcom G6 Marketing And Communications Officer Device Use as directed. To test blood sugars 4 times a day Dx E11.9 1 Each 0 09/14/2020 Active Dexcom G6 Transmitter Use as directed. To test blood sugars 4 times a day. Change every 90 days. Dx E11.9 1 Each 3 09/14/2020 Active OneTouch Verio In Vitro Strip (Glucose Blood) TESTING once daily 100 Strip 3 10/29/2020 Active OneTouch Delica Plus [id number] TESTING once daily 100 Each 3 10/29/2020 [...] ([facility]) inject 4.5mg (1 pen) under the skin once weekly 6 mL 5 02/22/2022 Active documented as of this encounter (statuses as of 03/03/2022) Active Problems Problem Noted Date Chronic diastolic [...] as of this encounter (statuses as of 03/03/2022) Resolved Problems Problem Noted Date Resolved Date [...] pain 01/24/2012 01/17/2017 Genetic Sleep Disorder Research Other*[id number] 05/13/2011 04/07/2016 Obstructive sleep apnea 01/18/2011 12/27/19 [...] as of this encounter (statuses as of 03/03/2022) Immunizations Name Administration Dates Next Due COVID-19 [...] Sign Reading Time Taken Comments Blood Pressure 120/62 03/03/2022 11:46 AM EDT Pulse - - Temperature - - Respiratory Rate - - Oxygen Saturation - - Inhaled Oxygen Concentration - - Weight 113.4 kg (250 lb) 03/03/2022 11:46 AM EDT Height 149.9 cm (4' 11") 03/03/2022 11:46 AM EDT Body Mass Index 50.49 03/03/2022 11:46 AM EDT documented in this encounter Functional [...] Progress Notes * Concetta Khan MD - 03/03/2022 11:56 AM EDT Patient Name: Shaina Bustos Reason for Visit: Postop visit (HPI): Patient is a 66-year-old postmenopausal female who presents for post up check. Patient is status post diagnostic hysteroscopy, dilation and curettage and insertion of Mirena IUD for postmenopausal bleeding on 02/13/2022. Patient states that she still has some episodes of vaginal bleeding. Patient was reassured that it takes 3 - 6 months to see the full effect of the Mirena IUD. Past medical history: Past Medical History: Diagnosis [...] than 8.0% ([facility]) 09/26/2013 ICD-10 update of inactive term Past surgical history: Past Surgical History: Procedure Laterality Date BONE DEBRIDEMENT, FIRST 20 CM2 Right 04/16/2020 DEBRIDEMENT SKIN SUBCUTANEOUS TISSUE MUSCLE AND BONE performed by Josh Vazquez MD at OR [facility] [place] DELIVERY 04/20/1982 COLONOSCOPY 04/21/2009 repeat in 10 years COLONOSCOPY, DIAGNOSTIC (RECTUM) 10/04/2016 normal bx, repeat 10 yrs/[facility] COLONOSCOPY, DIAGNOSTIC (RECTUM) N/A 06/03/2020 internal hemorrhoids/biopsies show adenomatous polyps/recall 5 years/COLONOSCOPY FLEXIBLE PROXIMAL DIAGNOSTIC performed by Janis Hatch DO at OR [facility] COLONOSCOPY, DIAGNOSTIC (RECTUM) 03/17/2020 poor prep / [facility] DENTAL SURGERY PROCEDURE NEC wisdom teeth x 4 DILATION AND CURETTAGE (D&C) EGD, FLEXIBLE, DIAGNOSTIC 10/04/2016 gastritis/[facility] EGD, FLEXIBLE, DIAGNOSTIC 01/11/2018 eso varices, retained food, repeat 1 yr/[facility] EGD, FLEXIBLE, DIAGNOSTIC N/A 06/03/2020 severe erosive esophagitis/non-bleeding grade II esophageal varices/gastritis/biopsies show inflammatory changes/repeat 3-4 months/ESOPHAGOGASTRODUODENOSCOPY (EGD), FLEXIBLE, TRANSORAL, DIAGNOSTIC per formed by Janis Hatch DO at [facility] EGD, FLEXIBLE, DIAGNOSTIC 11/27/2019 eso varices, portal hypertensive gastropathy, gastritis / [facility] EGD, FLEXIBLE, DIAGNOSTIC N/A 08/05/2020 large [...] Age of Onset Heart Disorder Father of [place] at age 61 Diabetes Father Heart Disorder Mother of [place] age 72 Heart Disorder Sister Mi at [...] Protein A Microsph Definity-lower back pain ROS: as in the HPI LABS: Results for orders placed or performed in visit on 02/21/22 FERRITIN Result Value Ref Range Ferritin 91 13 - 150 ng/mL IRON SCREEN, INCLUDING TIBC Result Value Ref Range Iron 56 33 - 151 ug/dL Iron Binding Capacity 240 (L) 250 - 425 ug/dL Transferrin Saturation Percent 23 15 - 55 % CBC Result Value Ref Range WBC 1.92 (L) 4.00 - 10.80 K/uL RBC 2.67 (L) 3.85 - 5.15 M/uL HGB 9.3 (L) 12.0 - 15.3 g/dL HCT 29.5 (L) 36.0 - 45.2 % MCV 110.5 (H) 81.5 - 97.5 fL MCH 34.8 (H) 27.0 - 34.0 pg MCHC 31.5 (L) 32.0 - 36.0 g/dL RDW 18.3 (H) 11.5 - 15.5 % PLT 58 (L) 140 - 400 K/uL MPV DIFFERENTIAL, AUTOMATED Result Value Ref Range WBC 1.92 (L) 4.00 - 10.80 K/uL Neutrophils % 49.9 40.0 - 75.0 % Lymphocytes % 26.6 18.0 - 42.0 % Monocytes % 14.1 (H) 1.0 - 11.0 % Eosinophils % 8.9 (H) 0.0 - 6.0 % Basophils % 0.5 0.0 - 2.0 % Absolute Neutrophils 0.96 (L) 1.80 - 7.70 K/uL Absolute Lymphocytes 0.51 (L) 1.00 - 4.80 K/ul Absolute Monocytes 0.27 0.00 - 1.10 K/uL Absolute Eosinophils 0.17 0.00 - 0.70 K/uL Absolute Basophils 0.01 0.00 - 0.20 K/uL DIFFERENTIAL, TECHNOLOGIST REVIEW Result Value Ref Range nRBCs Anisocytosis Slight (A) None Seen Elliptocytes Few (A) None Seen Hypochromia Slight (A) None Seen Macrocytosis Present (A) None Seen Tear Drop Cells Few (A) None Seen Large PLTs Present (A) None Seen *Note: Due to a large number of results and/or encounters for the requested time period, some results have not been displayed. A complete set of results can be found in Results Review. PHYSICAL EXAMINATION Vital signs Filed Vitals: 03/03/22 1146 BP: 120/62 Weight: 113.4 kg (250 lb) Height: 1.499 m (4' 11") Well developed. Well nourished white female in no acute distress HEENT : WNL LUNG: CTA bilat. No wheezes, crackles, or rales HEART; S-1, S-2; Regular ,rythm and rate . No murmurs GI; Soft.Obese. Non-tender. Non-distended.No guarding,no rebound tenderness. No Hernias. Organs aredifficult to palpate due to body habitus : Deferred Neurologic: grossly intact Psych: Alert, awake and oriented X 3. Normal gait A/P (N95.0) PMB (postmenopausal bleeding) (primary encounter diagnosis) Plan: Patient was reassured that it was normal to have irregular vaginal bleeding with the Mirena IUD forup to 6 months. She was informed the up to 20% of patients would stop having vaginal bleeding by the end of 1 year. We discussed surgical intervention. Patient was advised that surgery is not the standard of care. Aadditionally, patient is not an optimal surgical candidate given her multiple comorbidities. The patient was instructed to follow up in 3 months. (D50.0) Iron deficiency anemia due to chronic blood loss Plan: Patient will continue iron infusions. Concetta Khan MD documented in this encounter Nursing Notes * Pham Chavez LPN - 03/03/2022 11:48 AM EDT Pt present s/p hysteroscopy 02/14/2022. Pham Chavez LPN documented in this encounter Plan of Treatment Upcoming Encounters Date Type Specialty Care Team Description 03/04/2022 Laboratory Laboratory [place], Lab Scenery [address] [place] [address] 03/04/2022 Hem/Onc Treatment Hematology Oncology [place], Chair 3 Hem Onc Scenery [address] [facility] [address] 03/08/2022 Laboratory Laboratory Processing [facility] [place] Draw [address] [place] [address] 03/16/2022 Hem/Onc Treatment Hematology Oncology [place], Chair 2 Hem Onc Scenery [address] [place] [address] 03/22/2022 Home Visit [facility] July Poe RN [address] [place] [address] 03/24/2022 Office Visit Pulmonary Reynaldo Marquez MD [address] [place] [address] 04/06/2022 Laboratory Laboratory [place], Lab Scenery [address] [facility] [address] [facility] [address] 04/06/2022 Office Visit Hematology Oncology Tono Sanchez MD [address] [facility] [place] [address] 04/06/2022 Hem/Onc Treatment Hematology Oncology [place], Chair 10 Hem Onc Scenery [address] [place] [address] 04/06/2022 Office Visit Pharmacy Pharmacist1, [facility] [address] [facility] [address] [facility] [address] 04/11/2022 Home Visit Family Medicine Kaylee Barakat, [facility] Resizer Operator [address] [place] [address] 04/26/2022 Telemedicine Endocrinology Alberta Duque PA-C [address] [place] [address] 04/28/2022 Office Visit Gastroenterology Lyssa Stout CRNP 132 [facility] [place] [address] 05/05/2022 Office Visit Cardiology Quyen Canseco CRNP [address] [facility] [place] [address] 05/30/2022 Office Visit Gynecology Obstetrics Susan Jara MD [address] [place] [address] 06/24/2022 Office Visit Sleep Disorders Love Francisco DO [address] [facility] [place] [address] 07/04/2022 Office Visit Gynecology Obstetrics Concetta Khan MD [address] [place] [address] Scheduled Procedures Name Priority Associated Diagnoses [...] of this encounter Implants Implanted Type Area Pulverizer Device Identifier Shelf Expiration Date Model / Serial / Lot Microtech Sure Clip Implanted:Qty: 2 on 06/03/2020 by Janis Hatch DO at OR [facility] Clip N/A: Colon 04/21/2022 ROC-F-26-2 35-C-R / / [id number] documented as of this encounter Visit Diagnoses Diagnosis PMB (postmenopausal bleeding)- Primary Postmenopausal bleeding 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 (chronic) documented in this encounter Advance Directives Documents on File Type Date Recorded Patient Inside Account Representative 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 LIVING WILL AND HEALTH CARE POA Power Nugg-it 04/29/2021 12:00 AM TOM R OF [facility] POA Advanced Directive 04/01/2021 1:14 PM Advanced [...] File Name Relationship Healthcare Agent [facility] Syed Bustos Spouse Emergency Contact Care Teams Optical Manager Relationship Specialty Start Date End Date Vanita Dunn MD [address] [place] [phone] PCP - General Family Medicine 03/16/21 documented as of this encounter
--- OUTSIDE RECORDS SUMMARY | 2023-05-10 18:46 | External Medical Summary ---
Author Name Unknown Address Unknown Organization [facility] [address] [place] [address] Laboratory Report Ordering Provider Test Date Status JACOB CORBETT 03/08/2022 07:31:00 Final Observation Date Value Abnormality Reference (Units ) Status SYNC LEUKOCYTES IN BLOOD BY AUTOMATED COUNT 03/08/2022 07:31:00 3.33 Below low normal 4.00-10.80 (K/uL) Final Segs 03/08/2022 07:31:00 58.3 40.0-75.0 (%) Final Lymphs % 03/08/2022 07:31:00 19.2 18.0-42.0 (%) Final Monos 03/08/2022 07:31:00 14.1 Above high normal 1.0-11.0 (%) Final Eosinophils 03/08/2022 07:31:00 7.8 Above high normal 0.0-6.0 (%) Final Basos 03/08/2022 07:31:00 0.6 0.0-2.0 (%) Final Absolute Segs 03/08/2022 07:31:00 1.94 1.80-7.70 (K/uL) Final Lymphs, absolute 03/08/2022 07:31:00 0.64 Below low normal 1.00-4.80 (K/ul) Final Monos, Abs 03/08/2022 07:31:00 0.47 0.00-1.10 (K/uL) Final Eos, Abs 03/08/2022 07:31:00 0.26 0.00-0.70 (K/uL) Final Basos, Abs 03/08/2022 07:31:00 0.02 0.00-0.20 (K/uL) Final Performing Location LAB[facility]ORY [facility] [place] [address] [place] [address]
--- OUTSIDE RECORDS SUMMARY | 2023-05-10 18:46 | External Medical Summary ---
Author Name Unknown Address Unknown Organization [facility]:LABORATORY [facility] [address] [place] [address] Laboratory Report Ordering Provider Test Date Status JACOB CORBETT 03/08/2022 07:31:00 Final Observation Date Value Abnormality Reference (Units ) Status Nucleated erythrocytes/100 leukocytes [Ratio] in Blood by Automated count 03/08/2022 07:31:00 Final Anisocytosis [Presence] in Blood by Light microscopy 03/08/2022 07:31:00 Slight Abnormal None Seen Final Elliptocytes [Presence] in Blood by Light microscopy 03/08/2022 07:31:00 Few Abnormal None Seen Final Hypochromia [Presence] in Blood by Light microscopy 03/08/2022 07:31:00 Slight Abnormal None Seen Final Macrocytes [Presence] in Blood by Light microscopy 03/08/2022 07:31:00 Present Abnormal None Seen Final Ovalocytes [Presence] in Blood by Light microscopy 03/08/2022 07:31:00 Few Abnormal None Seen Final Performing Location LABORATORY [facility] [address] [place] [address]
--- OUTSIDE RECORDS SUMMARY | 2023-05-10 18:46 | External Medical Summary ---
Author Name Unknown Address Unknown Organization K0[facility]ORY [facility] [place] [address] [place] [address] Laboratory Report Ordering Provider Test Date Status JACOB CORBETT 03/08/2022 07:31:00 Final Observation Date Value Abnormality Reference (Units ) Status WBC, Total 03/08/2022 07:31:00 3.33 Below low normal 4. 00-10.80 (K/uL) Final RBC 03/08/2022 07:31:00 3.03 3.85-5.15 (M/uL) Final Hemoglobin 03/08/2022 07:31:00 10.6 Below low normal 12 .0-15.3 (g/dL) Final HCT 03/08/2022 07:31:00 33.5 Below low normal 36. 0-45.2 (%) Final MCV 03/08/2022 07:31:00 110.6 81.5-97.5 (fL) Final MCH 03/08/2022 07:31:00 35.0 27.0-34.0 (pg) Final MCHC 03/08/2022 07:31:00 31.6 32.0-36.0 (g/dL) Final RDW 03/08/2022 07:31:00 17.4 11.5-15.5 (%) Final Platelets 03/08/2022 07:31:00 79 Below low normal 140 -400 (K/uL) Final MPV 03/08/2022 07:31:00 13.3 6.6-11.1 ( fL) Final Performing Location LAB[facility]ORY [facility] [address] [place] [address]
--- OUTSIDE RECORDS SUMMARY | 2023-05-10 18:47 | External Medical Summary | Summary of Care ---
Author Name Unknown Organization [place] [address] Care Team Providers Care Identity Access Management Architect Name Role Phone Vanita Dunn MD Primary Care Provid er Reason for Visit * Reason Comments [facility]: Maintenance Encounter Details Date Type Department Care Team Description 03/02/2022 Home Visit Care Coordination [address] [place] [address] Kaylee Barakat, Community Health Captain Assistant [address] [place] [address] 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 documented as of this encounter (statuses as of 03/03/2022) Medications Medication Sig Dispensed Refills Start Date End Date Status nystatin (NYSTOP) 649800 UNIT/GM powder Apply topically to affected area 3 times a day. 60 g 1 10/16/2019 Active Dexcom G6 Experimental Preflight Mechanic Device Use as directed. To test blood sugars 4 times a day Dx E11.9 1 Each 0 09/14/2020 Active Dexcom G6 Transmitter Use as directed. To test blood sugars 4 times a day. Change every 90 days. Dx E11.9 1 Each 3 09/14/2020 Active OneTouch Verio In Vitro Strip (Glucose Blood) TESTING once daily 100 Strip 3 10/29/2020 Active OneTouch Delica Plus [id number] TESTING once daily 100 Each 3 10/29/2020 [...] of less than 7.0% ([facility]) inject 4.5mg (1 pen) under the skin [...] pain 01/24/2012 01/17/2017 Genetic Sleep Disorder Research Other*[id number] 05/13/2011 04/07/2016 Obstructive sleep apnea 01/18/2011 12/27/19 [...] Sign Reading Time Taken Comments Blood Pressure 118/62 03/02/2022 6:21 PM EDT Pulse 64 03/02/2022 6:21 PM EDT Temperature 36.4 C (97.6 F) 03/02/2022 6:21 PM ED T Respiratory Rate 16 03/02/2022 6:21 PM EDT Oxygen Saturation 95% 03/02/2022 6:21 PM EDT Inhaled Oxygen Concentration - - [...] this encounter Progress Notes * Kaylee Barakat, [facility] Health Captain Assistant - 03/03/2022 5:43 PM EDT Community Health Captain Assistant Visit Date: 03/02/2022 Time: 12:43 PM Name: Shaina Bustos : 1955 Referral Source: manager coding Source of Information: Patient And field care manager Spoken language: Liberian Patient can read in Liberian: Yes. Catering Assistant needed: No. COVID-19 screening completed: Yes Vitals: Vital signs completed: Yes, vital signs within normal range. There were no vitals taken for this visit. Condition Changes: Changes in health or social status since last visit: Patient and caregiver reporting Vaginal bleeding has not stopped, since insertion of IUD from [employer]. She has a follow up tomorrow 03/03/22 Left foot is sore due to bumping it off of the van/ railing per caregiver this was looked at by patients foot care provider. Denied any falls Trace of edema on ankle area BL Ongoing raspy cough BSG 160-293 The patient has new concerns since last visit: Yes, Vaginal bleeding Medications: Medication review completed? No, . Does the patient have barriers to medication adherence? No. Patient reports difficulty paying for medications or might in the future: No. Telehealth: This is a telehealth visit: No. Symptoms Surveys and Evaluations: [facility] No. Last flowsheet values for [facility]: Age 65+: 1 (01/13/2022 1:00 PM) Diagnosis [...] for fallin (01/13/2022 1:00 PM) Plan: Reinforced patient's three red flags by the care team 1. S/s of UTI - Fever, confusion 2. Increased SOB 3. Fever Follow Up: Patient encouraged to call the intake phone number for all urgent but not emergent issues. Scheduled to follow up with patient in 6 weeks Cy [facility] Health Captain Assistant 03/02/2022 12:43 PM documented in this encounter Plan of Treatment Upcoming Encounters Date Type Specialty Care Team Description 03/04/2022 Laboratory Laboratory [place], Lab Scenery [address] [place] [address] [place] [address] 03/04/2022 Hem/Onc Treatment Hematology Oncology [place], Chair 3 Hem Onc Scenery [address] [place] [address] 03/08/2022 Laboratory Laboratory Processing [facility] Draw [address] [place] [address] 03/16/2022 Hem/Onc Treatment Hematology Oncology [place], Chair 2 Hem Onc Scenery [address] [place] [address] 03/22/2022 [facility] Visit [facility] [address] 03/24/2022 Office Visit Pulmonary Reynaldo Marquez MD [address] [facility] [place] [address] 04/06/2022 Laboratory Laboratory [facility] Lab [facility] [address] [place] [address] 04/06/2022 Office Visit Hematology Oncology Tono Sanchez MD [address] [place] [address] 04/06/2022 Hem/Onc Treatment Hematology Oncology [place], Chair 10 Hem Onc Scenery [address] [place] [address] 04/06/2022 Office Visit Pharmacy Pharmacist1, [facility] Sp [address] [place] [address] 04/11/2022 Home Visit Family Medicine Kaylee Barakat, Community Health Captain Assistant [address] [place] [address] 04/26/2022 Telemedicine Endocrinology Alberta Duque PA-C [address], [place] [id number] 04/28/2022 Office Visit Gastroenterology Lyssa Stout CRNP 132 [facility] [place] [address] 05/05/2022 Office Visit Cardiology Quyen Canseco CRNP [address] [facility] [place] [address] 05/30/2022 Office Visit Gynecology Obstetrics Susan Jara MD [address] [place] [address] 06/24/2022 Office Visit Sleep Disorders Love Francisco DO [address] [facility] [place] [address] 07/04/2022 Office Visit Gynecology Obstetrics Concetta Khan MD [address] [place] [address] Scheduled Procedures Name Priority [...] of this encounter Implants Implanted Type Area Insurance Legal Assistant Device Identifier Shelf Expiration Date Model / Serial / Lot Microtech Sure Clip Implanted:Qty: 2 on 06/03/2020 by Janis Hatch DO at OR [facility] Clip N/A: Colon 04/21/2022 [facility]-F-26-2 35-C-R / / [id number] documented as of this encounter Advance Directives Documents on File Type Date Recorded Patient Cutting Inspector 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 WILL AND HEALTH CARE POA Power of Asbestos Siding Mechanic 04/29/2021 12:00 AM TOM R OF [facility] POA Advanced Directive 04/01/2021 1:14 [...] Syed Bustos Spouse Emergency Contact Care Teams Identity Access Management Architect Relationship Specialty Start Date End Date Vanita Dunn MD [address] [place] [address] PCP - General Family Medicine 03/16/21 documented as of this encounter
--- OUTSIDE RECORDS SUMMARY | 2023-05-10 18:47 | External Medical Summary | Summary of Care ---
Author Name Unknown Organization [facility] [place] [address] Care Team Providers Care Grit Blaster Name Role Phone Vanita Dunn MD Primary Care Provid er Reason for Visit * Reason Onset Date Comments Order Request 02/25/2022 Encounter Details Date Type Department Care Team Description 02/25/2022 Telephone [facility] [address] [place] [address] Vanita Dunn MD [address] [place] [address] Order Request 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 documented as of this encounter (statuses as of 03/02/2022) Medications Medication Sig Dispensed Refills Start Date End Date Status nystatin (NYSTOP) 559024 UNIT/GM powder Apply topically to affected area 3 times a day. 60 g 1 10/16/2019 Active Dexcom G6 Machine Chain Maker Device Use as directed. To test blood sugars 4 times a day Dx E11.9 1 Each 0 09/14/2020 Active Dexcom G6 Transmitter Use as directed. To test blood sugars 4 times a day. Change every 90 days. Dx E11.9 1 Each 3 09/14/2020 Active OneTouch Verio In Vitro Strip (Glucose Blood) TESTING once daily 100 Strip 3 10/29/2020 Active OneTouch Delica Plus [id number] TESTING once daily 100 Each 3 10/29/2020 [...] goal of less than 7.0% ([facility]) USE TO INJECT INSULIN FOUR [...] goal of less than 7.0% ([facility]) inject 4.5mg (1 pen) under the skin once weekly 6 mL 5 02/22/2022 Active documented as of this encounter (statuses as of 03/02/2022) Active Problems Problem Noted Date Chronic diastolic [...] as of this encounter (statuses as of 03/02/2022) Resolved Problems Problem Noted Date Resolved Date [...] pain 01/24/2012 01/17/2017 Genetic Sleep Disorder Research Other*[id number] 05/13/2011 04/07/2016 Obstructive sleep apnea 01/18/2011 12/27/19 [...] as of this encounter (statuses as of 03/02/2022) Immunizations Name Administration Dates Next Due COVID-19 [...] encounter Miscellaneous Notes * Telephone Encounter - TAHD Ibrahim - 02/25/2022 2:15 PM EDT An order was requested for this patient. Name of Requesting Provider: [facility] [employer] Order Requested: Order for 750 wipes Diagnosis/Reason for Request: urinary incontinence Does the order need to be faxed somewhere? If so, where?: [facility] [employer] Fax Number, if applicable: [phone] Call Back Number: [phone] If the caller is not a current patient, please advise the patient to call their current PCP to havethe order's prior to being seen in our office. The patient was informed that our providers would not order anything (medication, labs, etc.) prior to being seen. documented in this encounter Plan of Treatment Upcoming Encounters Date Type Specialty Care Team Description 03/03/2022 Office Visit Gynecology Obstetrics Concetta Khan MD [address] [place] [address] 03/04/2022 Laboratory Laboratory [place], Lab Scenery [address] [place] [address] 03/04/2022 Hem/Onc Treatment Hematology Oncology [place], Chair 3 Hem Onc Scenery [address] [place] [address] 03/08/2022 Laboratory Laboratory Processing [facility] Draw [address] [place] [address] 03/16/2022 Hem/Onc Treatment Hematology Oncology [place], Chair 2 Hem Onc Scenery 200 [facility] [place] [address] 03/22/2022 Home Visit [facility] July Poe, RN [address] [facility] [place] [address] 03/24/2022 Office Visit Pulmonary Reynaldo Marquez MD [address] [place] [facility] [place] [address] 04/06/2022 Laboratory Laboratory [facility] 200 [facility] [place] [address] 04/06/2022 Office Visit Hematology Oncology Tono Sanchez MD [facility] [place] [address] 04/06/2022 Hem/Onc Treatment Hematology Oncology [place], Chair 10 Hem Onc Scenery 200 [facility] [place] [address] 04/06/2022 Office Visit Pharmacy Pharmacist1, [facility] Sp 200 [facility] [place] [address] 04/26/2022 Telemedicine Endocrinology Alberta Duque PA-C [address] [place] [address] 04/28/2022 Office Visit Gastroenterology Lyssa Stout CRNP [address] [facility] [employer] [place] [address] 05/05/2022 Office Visit Cardiology Quyen Canseco CRNP 132 [facility] [place] [address] 05/30/2022 Office Visit Gynecology Obstetrics Susan Jara MD [address] [place] [address] [place] [id number] 06/24/2022 Office Visit Sleep Disorders Love Francisco DO [address] [place] [address] Scheduled Procedures Name Priority Associated Diagnoses Date/Ti [...] of this encounter Implants Implanted Type Area Blueprint Reproducer Device Identifier Shelf Expiration Date Model / Serial / Lot Microtech Sure Clip Implanted:Qty: 2 on 06/03/2020 by Janis Hatch DO at OR [facility] Clip N/A: Colon 04/21/2022 [facility]-F-26-2 35-C-R / / [id number] documented as of this encounter Visit Diagnoses Diagnosis Obesity, morbid (more than 100 lbs over ideal weight or BMI > 40) (HCC)- Primary Morbid obesity Other cerebral palsy (HCC) Wheelchair dependent Wheelchair dependence Impaired mobility and ADLs Mechanical problems with limbs 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
--- OUTSIDE RECORDS SUMMARY | 2023-05-10 18:48 | External Medical Summary ---
Author Name Unknown Address Unknown Organization K01:LABORATORY C - [address] [place] [address] Laboratory Report Ordering Provider Test Date Status JACOB CORBETT 02/21/2022 10:01:00 Final Observation Date Value Abnormality Reference (Units ) Status Ferritin 02/21/2022 10:01:00 91 13-150 (ng /mL) Final Performing Location [facility] - [address] [place] [address]
--- OUTSIDE RECORDS SUMMARY | 2023-05-10 18:48 | External Medical Summary ---
Author Name Unknown Address Unknown Organization [facility] [address] [place] [address] Laboratory Report Ordering Provider Test Date Status JACOB CORBETT 02/21/2022 10:01:00 Final Observation Date Value Abnormality Reference (Units ) Status WBC, Total 02/21/2022 10:01:00 1.92 Below low normal 4. 00-10.80 (K/uL) Final RBC 02/21/2022 10:01:00 2.67 Below low normal 3.8 5-5.15 (M/uL) Final Hemoglobin 02/21/2022 10:01:00 9.3 Below low normal 12 .0-15.3 (g/dL) Final HCT 02/21/2022 10:01:00 29.5 Below low normal 36. 0-45.2 (%) Final MCV 02/21/2022 10:01:00 110.5 Above high normal 81 .5-97.5 (fL) Final MCH 02/21/2022 10:01:00 34.8 Above high normal 27 .0-34.0 (pg) Final MCHC 02/21/2022 10:01:00 31.5 Below low normal 32. 0-36.0 (g/dL) Final RDW 02/21/2022 10:01:00 18.3 Above high normal 11 .5-15.5 (%) Final Platelets 02/21/2022 10:01:00 58 Below low normal 140 -400 (K/uL) Final MPV 02/21/2022 10:01:00 Final Performing Location LABORATORY [facility] [place] [facility] 0 - [address] [place] [address]
--- OUTSIDE RECORDS SUMMARY | 2023-05-10 18:48 | External Medical Summary ---
Author Name Unknown Address Unknown Organization K0G:LAB[facility]ATORY [place] [address] - [address] [place] [address] Laboratory Report Ordering Provider Test Date Status JACOB CORBETT 02/21/2022 10:01:00 Final Observation Date Value Abnormality Reference (Units ) Status Nucleated erythrocytes/100 leukocytes [Ratio] in Blood by Automated count 02/21/2022 10:01:00 Final Anisocytosis [Presence] in Blood by Light microscopy 02/21/2022 10:01:00 Slight Abnormal None Seen Final Elliptocytes [Presence] in Blood by Light microscopy 02/21/2022 10:01:00 Few Abnormal None Seen Final Hypochromia [Presence] in Blood by Light microscopy 02/21/2022 10:01:00 Slight Abnormal None Seen Final Macrocytes [Presence] in Blood by Light microscopy 02/21/2022 10:01:00 Present Abnormal None Seen Final Dacrocytes [Presence] in Blood by Light microscopy 02/21/2022 10:01:00 Few Abnormal None Seen Final Giant platelets [Presence] in Blood by Light microscopy 02/21/2022 10:01:00 Present Abnormal None Seen Final Performing Location LABORATORY [facility] [place] 57[address] 0 - [address] [place] [address]
--- OUTSIDE RECORDS SUMMARY | 2023-05-10 18:48 | External Medical Summary | Summary of Care ---
Author Name Unknown Organization [place] [address] Care Team Providers Care Supervisor Covering And Lining Name Role Phone Kojo Dunn MD Primary Care Provid er Reason for Visit * Reason Comments eRx-Medication Refill Encounter Details Date Type Department Care Team Description 02/20/2022 Refill [facility] [address] [place] [address] Kojo Dunn MD [address] [place] [address] Type 2 diabetes mellitus with hemoglobin A1c goal of less than 7.0% ([facility]) 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 documented as of this encounter (statuses as of 02/22/2022) Medications Medication Sig Dispensed Refills Start Date End Date Status nystatin (NYSTOP) 585060 UNIT/GM powder Apply topically to affected area 3 times a day. 60 g 1 0 Active Dexcom G6 Mobile Lab Technician Device Use as directed. To test blood sugars 4 times a day Dx E11.9 1 Each 0 1 Active Dexcom G6 Transmitter Use as directed. To test blood sugars 4 times a day. Change every 90 days. Dx E11.9 1 Each 3 1 Active OneTouch Verio In Vitro Strip (Glucose Blood) TESTING once daily 100 Strip 3 1 Active OneTouch Delica Plus [id number] TESTING once daily 100 Each 3 1 Active Nitroglycerin 0.4 MG Sublingual Tablet Sublingual (Nitrostat) Place 1 Tab under the tongue every 5 minutes as needed for Pain, Chest. up to 3 doses in 15 minutes 25 Tab 11 1 Active Additional Information Patient not taking. Reported on 12/27/2021 BiPAP every night at bedtime. 0 Active MEDICAL INSTRUCTIONSIndicat ions:Iron deficiency anemia due to chronic blood loss Please de-access patient's port. Please flush with 10 mL of NS, followed by 500 units (5 mL) of heparin. 1 Each 0 1 Active NovoLOG FlexPen 100 UNIT/ML Subcutaneous Solution Pen-injector Inject under the skin three times a day before meals. 32 Units at breakfast, 36 Units before lunch, 36 Units before supper 0 1 Active Docusate Sodium 100 MG Oral Capsule (Colace) TAKE 1 CAPSULE BY MOUTH ONCE DAILY 68 Cap 0 1 Active metFORMIN HCl ER 500 MG Oral Tablet Extended Release 24 Hour (Glucophage XR) Take one tablet by mouth daily with a meal 90 Tab 3 1 Active Gabapentin 300 MG Oral Capsule (Neurontin)Indicati ons:DM type 2 with diabetic peripheral neuropathy (HCC),Diabetic foot (HCC) TAKE 1 CAPSULE BY MOUTH EVERY MORNING, 1 CAPSULE MIDDAY AND 2 CAPSULES IN THE EVENING. May take extra dose am and mid day if needed for pain - total of 6 a day max 360 Cap 1 1 Active traZODone HCl 50 MG Oral [...] BEFORE BREAKFAST 90 Capsule 1 1 Active Additional Information Patient not taking. Reported on 01/28/2022 BD Pen Needle Mini U/F 31G X 5 MM (Insulin Pen Needle)Indications: Type 2 diabetes mellitus with hemoglobin A1c goal of less than 7.0% ([facility]) USE TO INJECT INSULIN FOUR TIMES DAILY. 400 Each 3 1 Active Aspirin 81 MG Oral Tablet Chewable CHEW AND SWALLOW 1 TABLET BY MOUTH ONCE DAILY 30 Tablet 5 1 Active Benzonatate 100 MG Oral Capsule [...] as directed 60 Each 5 2 Active Oxybutynin Chloride 5 MG Oral Tablet (Ditropan) TAKE 1 TABLET BY MOUTH TWICE DAILY 180 Tablet 1 2 Active Mupirocin 2 % External Ointment (Bactroban) Apply to the right side of the nose twice daily 22 g 0 2 Active Lantus SoloStar 100 UNIT/ML Subcutaneous Solution Pen-injector 36 Units every night at bedtime . 0 2 Active Potassium Chloride ER 10 [...] once weekly 6 mL 5 2 Active Trulicity 4.5 MG/0.5ML Subcutaneous Solution Pen-injector (Dulaglutide)Indica tions:Type 2 diabetes mellitus with hemoglobin A1c goal of less than 7.0% (HCC) Inject one pen (4.5 mg) under the skin once weekly 6 mL 3 1 06/14/20 22 Discontinued documented as of this encounter (statuses as of 02/22/2022) Active Problems Problem Noted Date Food insecurity 09/20/2021 Overview: Per [facility] Protocol Chronic diastolic (congestive) heart jaymie lure 09/13/2021 [...] as of this encounter (statuses as of 02/22/2022) Resolved Problems Problem Noted Date Resolved Date Food insecurity 04/19/2021 09/13/2021 Overview: Per [facility] [...] pain 01/24/2012 01/17/2017 Genetic Sleep Disorder Research Other*[id number] 05/13/2011 04/07/2016 Obstructive sleep apnea 01/18/2011 12/27/19 [...] as of this encounter (statuses as of 02/22/2022) Immunizations Name Administration Dates Next Due COVID-19 [...] encounter Miscellaneous Notes * Telephone Encounter - Hayden Jackson RPh - 02/22/2022 2:32 PM EDT Signed Prescriptions: Disp Refills Trulicity 4.5 MG/0.5ML Subcutaneous Soluti*6 mL 5 Sig: inject 4.5mg (1 pen) under the skin once weeklyAuthorizing Provider: KOJO DUNN User: HAYDEN JACKSONRefused Prescriptions: Disp Refills Furosemide 20 MG Oral Tablet (Lasix) 90 Tab*0 Sig: TAKE 1 TABLET BY MOUTH DAILY as needed for lower extremity swellingRefused By: Teresa JACKSON for Refusal: Duplicate Request documented in this encounter Plan of Treatment Upcoming Encounters Date Type Specialty Care Team Description 02/23/2022 Laboratory Laboratory [place], Lab Scenery [address] [facility] [place] [address] 02/23/2022 Hem/Onc Treatment Hematology Oncology [place], Chair 11 Hem Onc Scenery [address] [facility] [address] 02/24/2022 Home Visit Family Medicine Kaylee Barakat, Community Health Opinion Polls Survey Worker [address] [place] [address] 03/03/2022 Office Visit Gynecology Obstetrics Concetta Khan MD [address] [place] [id number] 03/07/2022 Laboratory Laboratory Processing [facility] Mobile Home Draw [address] [place] [address] 03/16/2022 Hem/Onc Treatment Hematology Oncology [place], Chair 2 Hem Onc Scenery [address] [place], [place] [address] 03/22/2022 Home Visit [facility] July Poe RN [address] [place] [address] 03/24/2022 Office Visit Reynaldo Marks MD [address] [place] [address] 04/06/2022 Laboratory Laboratory [place], Lab Scenery [address] [place], [place] [address] 04/06/2022 Office Visit Hematology Oncology Tono Sanchez MD [address] [place], [place] [address] 04/06/2022 Hem/Onc Treatment Hematology Oncology [place], Chair 10 Hem Onc Scenery [address] [place] [address] 04/06/2022 Office Visit Pharmacy Pharmacist1, [facility] Sp 200 [facility] [place] [address] 04/26/2022 Telemedicine Endocrinology Alberta Duque PA-C [address] [place] [address] 04/28/2022 Office Visit Gastroenterology [facility] [address] [facility] [address] 05/05/2022 Office Visit Cardiology Quyen Canseco CRNP [address] [facility] [address] 05/30/2022 Office Visit Gynecology Obstetrics Susan Jara MD [address] [place] [address] 06/24/2022 Office Visit Sleep Disorders Love Francisco DO [address] [facility] [place] [address] Scheduled Procedures Name Priority Associated Diagnoses Date/Ti [...] of this encounter Implants Implanted Type Area Die Casting Machine Maintainer Device Identifier Shelf Expiration Date Model / Serial / Lot Microtech Sure Clip Implanted:Qty: 2 on 06/03/2020 by Hatch, Marten B, DO at OR [facility] Clip N/A: Colon 04/21/2022 [facility]-F-26-2 35-C-R / / [id number] documented as of this encounter Visit Diagnoses Diagnosis Type 2 diabetes mellitus with hemoglobin A1c goal of less than 7.0% (HCC) documented in this encounter Advance Directives Documents on File Type Date Recorded Patient Power Manager 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 LIVING WILL AND HEALTH CARE POA Power [email or web address] 04/29/2021 12:00 AM TOM R OF [facility] POA Advanced Directive 04/01/2021 1:14 PM [...] Bustos Spouse Emergency Contact Care Teams Supervisor Covering And Lining Relationship Specialty Start Date End Date Kojo Dunn MD [address] [facility] [place] [address] PCP - General Family Medicine 03/16/21 documented as of this encounter
--- OUTSIDE RECORDS SUMMARY | 2023-05-10 18:48 | External Medical Summary | Summary of Care ---
Author Name Unknown Organization [facility] Address [place] [address] Care Team Providers Care Field Service Poultry Technician Name Role Phone Vanita Dunn MD Primary Care Provid er Reason for Visit * Reason Onset Date Comments Medication Refill 02/18/2022 Encounter Details Date Type Department Care Team Description 02/18/2022 Telephone [facility], [facility] [place] [address] Lyssa Stout CRNP [address] [place] [address] Medication Refill 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 documented as of this encounter (statuses as of 02/22/2022) Medications Medication Sig Dispensed Refills Start Date End Date Status nystatin (NYSTOP) 629168 UNIT/GM powder Apply topically to affected area 3 times a day. 60 g 1 10/16/2019 Active Dexcom G6 Transitional Care Manager Device Use as directed. To test blood sugars 4 times a day Dx E11.9 1 Each 0 09/14/2020 Active Dexcom G6 Transmitter Use as directed. To test blood sugars 4 times a day. Change every 90 days. Dx E11.9 1 Each 3 09/14/2020 Active OneTouch Verio In Vitro Strip (Glucose Blood) TESTING once daily 100 Strip 3 10/29/2020 Active OneTouch Delica Plus [id number] TESTING once daily 100 Each 3 10/29/2020 [...] 36 Units before supper 0 03/24/2021 Active Trulicity 4.5 MG/0.5ML Subcutaneous Solution Pen-injector (Dulaglutide)Indica tions:Type 2 diabetes mellitus with hemoglobin A1c goal of less than 7.0% (HCC) Inject one pen (4.5 mg) under the skin once weekly 6 mL 3 04/23/2021 Active Docusate Sodium 100 MG Oral Capsule [...] movements daily 1892 mL 3 02/18/2022 Active Lactulose 10 GM/15ML Oral Solution (Constulose) Take 30mL by mouth twice daily, titrate dose for effect of 3-5 bowel movements daily 240 mL 3 09/16/2021 2 Discontinu ed(Refill) documented as of this [...] pain 01/24/2012 01/17/2017 Genetic Sleep Disorder Research Other*[id number] 05/13/2011 04/07/2016 Obstructive sleep apnea 01/18/2011 12/27/19 [...] encounter Miscellaneous Notes * Telephone Encounter - Josefina Irvin RN - 02/22/2022 1:32 PM EDT Caregiver calling back in. I informed her a prescription was sent to [facility] in [place]. * Telephone Encounter - ZAK Bolton - 02/18/2022 11:44 AM EDT I increase the lactulose dose to 30 mL 3 times daily. Larger bottle size also prescribe. * Telephone Encounter - Fatuma Hernandez LPN - 02/18/2022 8:36 AM EDT Call received from Caregiver. Called per request. Asking for an increased of the lactulose amount prescribed is only getting about a week out of each bottle. Using 60mL daily. For a 30 day supply would need 1800mL. Also asking if can have a dose increase. Is noting pt is still going daily but only having small BM's. Please advise. documented in this encounter Plan of Treatment Upcoming Encounters Date Type Specialty Care Team Description 02/23/2022 Laboratory Laboratory [facility] [address] [facility] [address] 02/23/2022 Hem/Onc Treatment Hematology Oncology [place], Chair 11 Hem Onc Scenery [address] [place] [address] 02/24/2022 Home Visit Family Medicine Kaylee Barakat, Community Health Administration Assistant [address] [place] [address] 03/03/2022 Office Visit Gynecology Obstetrics Concetta Khan MD [address] [place] [id number] 03/07/2022 Laboratory Laboratory Processing [facility] [place] [place] Draw [address] [place] [address] 03/16/2022 Hem/Onc Treatment Hematology Oncology [place], Chair 2 Hem Onc Scenery [address] [place] [address] 03/22/2022 Home Visit [facility] July Poe RN [address] [place] [address] 03/24/2022 Office Visit Pulmonary Reynaldo Marquez MD [address] [place] [address] 04/06/2022 Laboratory Laboratory [facility] Scenery [address] [facility] [address] 04/06/2022 Office Visit Hematology Oncology Tono Sanchez MD [address] [place] [address] 04/06/2022 Hem/Onc Treatment Hematology Oncology [place], Chair 10 Hem Onc Scenery [address] [place] [address] 04/06/2022 Office Visit Pharmacy Pharmacist1, [facility] [address] [place] [address] 04/26/2022 Telemedicine Endocrinology Alberta Duque PA-C [address] [place] [address] 04/28/2022 Office Visit Gastroenterology Lyssa Stout CRNP 132 [facility] [place] [address] 05/05/2022 Office Visit Cardiology Quyen Canseco CRNP 132 [facility] [place] [address] 05/30/2022 Office Visit Gynecology Obstetrics Susan Jara MD 400 [place] [address] 06/24/2022 Office Visit Sleep Disorders Love Francisco DO 132 [facility] [place] [address] Scheduled Procedures Name Priority Associated Diagnoses Date/Ti [...] of this encounter Implants Implanted Type Area Methods And Procedures Analyst Device Identifier Shelf Expiration Date Model / Serial / Lot Microtech Sure Clip Implanted:Qty: 2 on 06/03/2020 by Janis Hatch DO at OR [facility] Clip N/A: Colon 04/21/2022 [facility]-F-26-2 35-C-R / / [id number] documented as of this encounter Advance Directives Documents on File Type Date Recorded Patient Cloth Printer 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 WILL AND HEALTH CARE POA Power of EventVue 04/29/2021 12:00 AM TOM R OF [facility] CARE POA Advanced Directive 04/01/2021 1:14 [...] Bustos Spouse Emergency Contact Care Teams Field Service Poultry Technician Relationship Specialty Start Date End Date Vanita Dunn MD [address] [place] [phone] PCP - General Family Medicine 03/16/21 documented as of this encounter
--- OUTSIDE RECORDS SUMMARY | 2023-05-10 18:48 | External Medical Summary ---
Author Name Unknown Address Unknown Organization [id number]:LABORATORY [facility] [place] - [address] [place] [address] Laboratory Report Ordering Provider Test Date Status JACOB CORBETT 02/21/2022 10:01:00 Final Observation Date Value Abnormality Reference (Units ) Status Iron 02/21/2022 10:01:00 56 33-151 (ug/dL) Final Iron-binding capacity 02/21/2022 10:01:00 240 Below low normal 250-425 (ug/dL) Final Transferrin Sat % 02/21/2022 10:01:00 23 15-55 (%) Final Performing Location LABORATORY [facility] [place] - [address] [place] [address]
--- OUTSIDE RECORDS SUMMARY | 2023-05-10 18:48 | External Medical Summary ---
Author Name Unknown Address Unknown Organization [id number][facility] [address] [place] [address] Laboratory Report Ordering Provider Test Date Status JACOB CORBETT 02/21/2022 10:01:00 Final Observation Date Value Abnormality Reference (Units ) Status SYNC LEUKOCYTES IN BLOOD BY AUTOMATED COUNT 02/21/2022 10:01:00 1.92 Below low normal 4.00-10.80 (K/uL) Final Segs 02/21/2022 10:01:00 49.9 40.0-75.0 (%) Final Lymphs % 02/21/2022 10:01:00 26.6 18.0-42.0 (%) Final Monos 02/21/2022 10:01:00 14.1 Above high normal 1.0-11.0 (%) Final Eosinophils 02/21/2022 10:01:00 8.9 Above high normal 0.0-6.0 (%) Final Basos 02/21/2022 10:01:00 0.5 0.0-2.0 (%) Final Absolute Segs 02/21/2022 10:01:00 0.96 Below low normal 1.80-7.70 (K/uL) Final Lymphs, absolute 02/21/2022 10:01:00 0.51 Below low normal 1.00-4.80 (K/ul) Final Monos, Abs 02/21/2022 10:01:00 0.27 0.00-1.10 (K/uL) Final Eos, Abs 02/21/2022 10:01:00 0.17 0.00-0.70 (K/uL) Final Basos, Abs 02/21/2022 10:01:00 0.01 0.00-0.20 (K/uL) Final Performing Location LABORATORY [facility] [place] [facility] - [address] [place] [address]
--- OUTSIDE RECORDS SUMMARY | 2023-05-10 18:49 | External Medical Summary | Summary of Care ---
Author Name Unknown Organization [facility] Address [place] [address] Care Team Providers Care Crtts Name Role Phone Vanita Dunn MD Primary Care Provid er Reason for Visit * Reason Onset Date Comments [facility]: Maintenance 02/15/2022 Encounter Details Date Type Department Care Team Description 02/15/2022 Telephone [facility], [facility] 132 [facility] [place] [address] [facility], Nurse [facility] 132 [facility] [place] [address] [facility]: Maintenance 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 documented as of this encounter (statuses as of 02/15/2022) Medications Medication Sig Dispensed Refills Start Date End Date Status nystatin (NYSTOP) 232285 UNIT/GM powder Apply topically to affected area 3 times a day. 60 g 1 10/16/2019 Active Dexcom G6 Scalp Treatment Specialist Device Use as directed. To test blood sugars 4 times a day Dx E11.9 1 Each 0 09/14/2020 Active Dexcom G6 Transmitter Use as directed. To test blood sugars 4 times a day. Change every 90 days. Dx E11.9 1 Each 3 09/14/2020 Active OneTouch Verio In Vitro Strip (Glucose Blood) TESTING once daily 100 Strip 3 10/29/2020 Active OneTouch Delica Plus [id number] TESTING once daily 100 Each 3 10/29/2020 [...] ONCE DAILY 30 Tablet 5 08/30/2021 Active Lactulose 10 GM/15ML Oral Solution (Constulose) Take 30mL by mouth twice daily, titrate dose for effect of 3-5 bowel movements daily 240 mL 3 09/16/2021 Active Benzonatate 100 MG Oral Capsule (Tessalon [...] MOUTH DAILY 90 Tablet 1 02/15/2022 Active documented as of this encounter (statuses as of 02/15/2022) Active Problems Problem Noted Date Food insecurity [...] as of this encounter (statuses as of 02/15/2022) Resolved Problems Problem Noted Date Resolved Date [...] pain 01/24/2012 01/17/2017 Genetic Sleep Disorder Research Other*[id number] 05/13/2011 04/07/2016 Obstructive sleep apnea 01/18/2011 12/27/19 [...] as of this encounter (statuses as of 02/15/2022) Immunizations Name Administration Dates Next Due COVID-19 [...] Telephone Encounter - Dorothy Walker LPN - 02/15/2022 10:37 AM EDT Phone call f/u Had hysteroscopy procedure yesterday Spoke with patient Procedure went well yesterday She is feeling okay today Having some bleeding, as to be expected Has all her discharge paperwork with signs to look for and when to call Dry Finisher Confirmed EMILE visit on 02/24 Confirmed Dry Finisher f/u on 03/03 Aware to call sooner with any needs documented in this encounter Plan of Treatment Upcoming Encounters Date Type Specialty Care Team Description 02/21/2022 Laboratory Laboratory Processing [facility] [place] [place] [facility] Mobile Home Draw [address] [place] [address] 02/23/2022 Laboratory Laboratory Johanna Bojorquez [address] [place] [address] 02/23/2022 Hem/Onc Treatment Hematology Oncology [place], Chair 11 Hem Onc Scenery [address] [place], [place] [address] 02/24/2022 Home Visit Family Medicine Kaylee Barakat, Community Health Part Time Flexible Clerk [address] [place] [address] 03/03/2022 Office Visit Gynecology Obstetrics Concetta Khan MD [address] [place], [place] [id number] 03/07/2022 Laboratory Laboratory Processing [facility] [place] [place] [facility] Mobile Home Draw [address] [place], [place] [id number] 03/16/2022 Hem/Onc Treatment Hematology Oncology [place], Chair 2 Hem Onc Scenery [address] [place] [address] 03/22/2022 Home Visit [facility] July Poe, RN 132 [place] [address] 03/24/2022 Office Visit Pulmonary Reynaldo Marquez MD [address] [place] [address] 04/06/2022 Laboratory Laboratory [place], Lab Scenery 200 [facility] [place] [address] 04/06/2022 Office Visit Hematology Oncology Tono Sanchez MD [address] [facility] [place] [address] 04/06/2022 Hem/Onc Treatment Hematology Oncology [place], Chair 10 Hem Onc Scenery [address] [place], [place] [address] 04/06/2022 Office Visit Pharmacy Pharmacist1, [facility] Sp [address] [place] [address] 04/26/2022 Telemedicine Endocrinology Alberta Duque PA-C [address] [place] [address] 04/28/2022 Office Visit Gastroenterology Lyssa Stout CRNP [address] [place] [address] 05/05/2022 Office Visit Cardiology Quyen Canseco CRNP [address] [place] [address] 05/30/2022 Office Visit Gynecology Obstetrics Susan Jara MD [address] [place] [address] [place] [address] 06/24/2022 Office Visit Sleep Disorders Love Francisco DO [address] [place] [address] Scheduled Procedures Name Priority Associated Diagnoses Date/Ti [...] of this encounter Implants Implanted Type Area Franchise Broker Device Identifier Shelf Expiration Date Model / Serial / Lot Microtech Sure Clip Implanted:Qty: 2 on 06/03/2020 by Janis Hatch DO at OR [facility] Clip N/A: Colon 04/21/2022 [facility]-F-26-2 35-C-R / / [id number] documented as of this encounter Advance Directives Documents on File Type Date Recorded Patient Health Record Technician 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 WILL AND HEALTH CARE POA Power of Internal Controls Specialist 04/29/2021 12:00 AM TOM R OF [facility] POA Advanced Directive 04/01/2021 1:14 [...] Syed Bustos Spouse Emergency Contact Care Teams Crtts Relationship Specialty Start Date End Date Vanita Dunn MD [address] [place] [address] PCP - General Family Medicine 03/16/21 documented as of this encounter
--- OUTSIDE RECORDS SUMMARY | 2023-05-10 18:49 | External Medical Summary | Summary of Care ---
Author Name Unknown Organization [place] [address] Care Team Providers Care Visual Merchandising Assistant Name Role Phone Vanita Dunn MD Primary Care Provid er Reason for Visit * Reason Onset Date Comments COVID-19 Screening 02/15/2022 Encounter Details Date Type Department Care Team Description 02/15/2022 Telephone COVID19 Screening [facility] DEPT CLOSED 06/22/21 [address] [place] [id number], Automated Provider COVID-19 Screening 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 documented as of this encounter (statuses as of 02/15/2022) Medications Medication Sig Dispensed Refills Start Date End Date Status nystatin (NYSTOP) 309700 UNIT/GM powder Apply topically to affected area 3 times a day. 60 g 1 10/16/2019 Active Dexcom G6 Elevator Mechanic Apprentice Device Use as directed. To test blood sugars 4 times a day Dx E11.9 1 Each 0 09/14/2020 Active Dexcom G6 Transmitter Use as directed. To test blood sugars 4 times a day. Change every 90 days. Dx E11.9 1 Each 3 09/14/2020 Active OneTouch Verio In Vitro Strip (Glucose Blood) TESTING once daily 100 Strip 3 10/29/2020 Active OneTouch Delica Plus [id number] TESTING once daily 100 Each 3 10/29/2020 [...] Noted Date Food insecurity 09/20/2021 Overview: Per [facility] Protocol Chronic diastolic (congestive) heart jaymie [...] pain 01/24/2012 01/17/2017 Genetic Sleep Disorder Research Other*[id number] 05/13/2011 04/07/2016 Obstructive sleep apnea 01/18/2011 12/27/19 [...] Notes * Telephone Encounter - Covid Results [facility] - 02/15/2022 11:41 PM EDT Outreach Attempts IVR Call Feb 15 2022 5:08PM Answered - Success Results COVID: Negative IVR Message: Cecy Merritt. Your COVID-19 from 02/12/2022 00:00:00 results are negative. This means you are NOT infected with coronavirus 19. If your cold/flu symptoms last longer than 7 days or get worse, contact your primary care physician. If you don't have a primary care physician, go to the nearest [facility] or urgent care clinic. To establish care with a [facility] provider, please call [phone]. Practice social distancing and good hand hygiene to keep yourself and others safe. Your results are also available for your reference in your [email or web address] account under 'Test & Lab Results.' If you are not enrolled in [email or web address], you can create an account by going to [email or web address]. You will also receive a letter in the mail with your results. If you are a [facility] staff member or employee, when you receive your result, please call [facility] [employer] between 7 a.m. and 4 p.m. at [phone]. Notify them of your test results and for instructions on returning to work after your quarantine period. Press 1 if you would like to speak with a nurse, press 2 to hear this message again. documented in this encounter Plan of Treatment Upcoming Encounters Date Type Specialty Care Team Description 02/21/2022 Laboratory Laboratory Processing [facility] Mobile Home Draw [address] [place] [address] 02/23/2022 Laboratory Laboratory [place], Lab Scenery [address] [place] [address] 02/23/2022 Hem/Onc Treatment Hematology Oncology [place], Chair 11 Hem Onc Scenery [address] [place] [address] 02/24/2022 Home Visit Family Medicine Kaylee Barakat, Community Health Pattern Lease Inspector [address] [place] [address] 03/03/2022 Office Visit Gynecology Obstetrics Concetta Khan MD [address] [place] [phone] 03/07/2022 Laboratory Laboratory Processing [facility] Mobile Home Draw [address] [place] [address] 03/16/2022 Hem/Onc Treatment Hematology Oncology [place], Chair 2 Hem Onc Scenery [address] [place] [address] 03/22/2022 Home Visit [facility] July Poe RN [address] [place] [address] 03/24/2022 Office Visit Pulmonary Reynaldo Marquez MD [address] [place] [address] 04/06/2022 Laboratory Laboratory [place], Lab Scenery [address] [place] [address] 04/06/2022 Office Visit Hematology Oncology Tono Sanchez MD 200 [place] [address] 04/06/2022 Hem/Onc Treatment Hematology Oncology [place], Chair 10 Hem [address]c [address] [address] 04/06/2022 Office Visit Pharmacy Pharmacist1, [facility] 200 [facility] [address] 04/26/2022 Telemedicine Endocrinology Alberta Duque PA-C [address] [place] [address] 04/28/2022 Office Visit Gastroenterology Lyssa Stout CRNP 132 [facility] [place] [address] 05/05/2022 Office Visit Cardiology Quyen Canseco CRNP 132 [facility] [place] [address] 05/30/2022 Office Visit Gynecology Obstetrics Susan Jara MD [address] [place] [address] 06/24/2022 Office Visit Sleep Disorders Love Francisco DO 132 [facility] [place] [address] Scheduled Procedures Name Priority Associated Diagnoses Date/Ti [...] of this encounter Implants Implanted Type Area Music Assistant Device Identifier Shelf Expiration Date Model / Serial / Lot Microtech Sure Clip Implanted:Qty: 2 on 06/03/2020 by Janis Hatch DO at OR [facility] Clip N/A: Colon 04/21/2022 [facility]-F-26-2 35-C-R / / [id number] documented as of this encounter Advance Directives Documents on File Type Date Recorded Patient Log Turner 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 WILL LIVING WILL AND HEALTH CARE POA [facility] 04/29/2021 12:00 AM TOM R [facility] POA Advanced Directive 04/01/2021 1:14 PM Advanced [...] Bustos Spouse Emergency Contact Care Teams Visual Merchandising Assistant Relationship Specialty Start Date End Date Vainta Dunn MD [address] [place] [facility] [address] PCP - General Family Medicine 03/16/21 documented as of this encounter
--- OUTSIDE RECORDS SUMMARY | 2023-05-10 18:49 | External Medical Summary | Summary of Care ---
Author Name Unknown Organization [facility] Address [place] [address] Care Team Providers Care Seafood Team Member Name Role Phone Vanita Dunn MD Primary Care Provid er Reason for Visit * Reason Onset Date Comments Medication Refill 02/18/2022 Encounter Details Date Type Department Care Team Description 02/18/2022 Telephone Gastroenterology, [facility] [address] [place] [address] Lyssa Stout CRNP [address] [place] [address] Medication Refill 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 documented as of this encounter (statuses as of 02/18/2022) Medications Medication Sig Dispensed Refills Start Date End Date Status nystatin (NYSTOP) 337205 UNIT/GM powder Apply topically to affected area 3 times a day. 60 g 1 10/16/2019 Active Dexcom G6 Wheel Polisher Device Use as directed. To test blood sugars 4 times a day Dx E11.9 1 Each 0 09/14/2020 Active Dexcom G6 Transmitter Use as directed. To test blood sugars 4 times a day. Change every 90 days. Dx E11.9 1 Each 3 09/14/2020 Active OneTouch Verio In Vitro Strip (Glucose Blood) TESTING once daily 100 Strip 3 10/29/2020 Active OneTouch Delica Plus [id number] TESTING once daily 100 Each 3 10/29/2020 [...] goal of less than 7.0% ([facility]) USE TO INJECT INSULIN FOUR TIMES DAILY. [...] as of this encounter (statuses as of 02/18/2022) Active Problems Problem Noted Date Food insecurity [...] as of this encounter (statuses as of 02/18/2022) Resolved Problems Problem Noted Date Resolved Date [...] pain 01/24/2012 01/17/2017 Genetic Sleep Disorder Research Other*[id number] 05/13/2011 04/07/2016 Obstructive sleep apnea 01/18/2011 12/27/19 [...] as of this encounter (statuses as of 02/18/2022) Immunizations Name Administration Dates Next Due COVID-19 [...] Care Team Description 02/21/2022 Laboratory Laboratory Processing [facility], [facility] Mobile Home Draw [address] [place] [address] 02/23/2022 Laboratory Laboratory [place], Lab Scenery [address] [facility] [place] [address] 02/23/2022 Hem/Onc Treatment Hematology Oncology [place], Chair 11 Hem Onc Scenery [address] [place], [place] [address] 02/24/2022 Home Visit Family Medicine Kaylee Barakat, Community Health Bi Specialist [address] [place] [address] 03/03/2022 Office Visit Gynecology Obstetrics Concetta Khan MD [address] [place] [address] 03/07/2022 Laboratory Laboratory Processing [facility], [facility] Mobile Home Draw [address] [place] [address] 03/16/2022 Hem/Onc Treatment Hematology Oncology [place], Chair 2 Hem Onc Scenery [address] [facility] [place] [address] 03/22/2022 [facility] Visit [facility] July Poe, RN [address] [place] [address] 03/24/2022 Office Visit Reynaldo Marks MD [address], [place] [id number] 04/06/2022 Laboratory Laboratory [place], Lab Scenery [address] [place] [address] 04/06/2022 Office Visit Hematology Oncology Tono Sanchez MD [address] [place] [address] 04/06/2022 Hem/Onc Treatment Hematology Oncology [place], Chair 10 Hem Onc Scenery [address] [place] [address] 04/06/2022 Office Visit Pharmacy Pharmacist1, [facility] [address] [place] [address] 04/26/2022 Telemedicine Endocrinology Alberta Duque PA-C [address] [place] [address] 04/28/2022 Office Visit Gastroenterology Lyssa Stout [facility] [address] 05/05/2022 Office Visit Cardiology Quyen Canseco CRNP 132 [facility] [place] [address] 05/30/2022 Office Visit Gynecology Obstetrics Susan Jara MD [address] [place] [address] 06/24/2022 Office Visit Sleep Disorders Love Francisco DO 132 [facility] [place] [address] Scheduled Procedures Name Priority Associated Diagnoses Date/Ti [...] of this encounter Implants Implanted Type Area Metal Sheet Roller Operator Device Identifier Shelf Expiration Date Model / Serial / Lot Microtech Sure Clip Implanted:Qty: 2 on 06/03/2020 by Janis Hatch DO at OR [facility] Clip N/A: Colon 04/21/2022 [facility]-F-26-2 35-C-R / / [id number] documented as of this encounter Advance Directives Documents on File Type Date Recorded Patient Coat Cutter 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 WILL AND HEALTH CARE POA Power of Orthopedic Physician Assistant 04/29/2021 12:00 AM TOM R [facility] POA Advanced Directive 04/01/2021 1:14 PM Advanced [...] [facility] p Communication Syed Bustos Spouse Emergency Contact Care Teams Seafood Team Member Relationship Specialty Start Date End Date Vanita Dunn MD [address] [facility] [place] [address] PCP - General Family Medicine 03/16/21 documented as of this encounter
--- OUTSIDE RECORDS SUMMARY | 2023-05-10 18:50 | External Medical Summary | Summary of Care ---
Author Name Unknown Organization [place] [address] Care Team Providers Care Counselor Camp Name Role Phone Vanita Dunn MD Primary Care Provid er Reason for Visit * Reason Onset Date Comments COVID-19 Screening 02/14/2022 Encounter Details Date Type Department Care Team Description 02/14/2022 Telephone COVID19 Screening [facility] DEPT CLOSED 06/22/21 [address] [place] [id number], Automated Provider COVID-19 Screening 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 documented as of this encounter (statuses as of 02/15/2022) Medications Medication Sig Dispensed Refills Start Date End Date Status nystatin (NYSTOP) 567897 UNIT/GM powder Apply topically to affected area 3 times a day. 60 g 1 10/16/2019 Active Dexcom G6 Route Aide Device Use as directed. To test blood sugars 4 times a day Dx E11.9 1 Each 0 09/14/2020 Active Dexcom G6 Transmitter Use as directed. To test blood sugars 4 times a day. Change every 90 days. Dx E11.9 1 Each 3 09/14/2020 Active OneTouch Verio In Vitro Strip (Glucose Blood) TESTING once daily 100 Strip 3 10/29/2020 Active OneTouch Delica Plus [id number] TESTING once daily 100 Each 3 10/29/2020 [...] TIMES DAILY. 400 Each 3 08/23/2021 Active Isosorbide Mononitrate ER 30 MG Oral Tablet Extended Release 24 Hour (Imdur) TAKE 1 TABLET BY MOUTH ONCE DAILY 30 Tablet 5 08/30/2021 Active Aspirin 81 MG Oral Tablet Chewable CHEW AND SWALLOW 1 TABLET BY MOUTH ONCE DAILY 30 Tablet 5 08/30/2021 Active Atorvastatin Calcium 80 MG Oral Tablet (Lipitor) TAKE 1 TABLET BY MOUTH AT BEDTIME 30 Tablet 5 08/30/2021 Active Lactulose 10 [...] twice daily 22 g 0 11/08/2021 Active Furosemide 20 MG Oral Tablet (Lasix) TAKE 1 TABLET BY MOUTH DAILY NEEDED FOR LOWER EXTREMITY SWELLING 90 Tablet 0 12/08/2021 Active Lantus SoloStar 100 UNIT/ML Subcutaneous Solution [...] TO ACCESSING. 30 g 0 02/10/2022 Active documented as of this encounter (statuses [...] pain 01/24/2012 01/17/2017 Genetic Sleep Disorder Research Other*[id number] 05/13/2011 04/07/2016 Obstructive sleep apnea 01/18/2011 12/27/19 [...] Notes * Telephone Encounter - Covid Results [place] - 02/15/2022 12:49 AM EDT Outreach Attempts Feb 14 2022 5:00PM - Fail to reach patient IVR Message: Unsuccessful contact, no education provided documented in this encounter Plan of Treatment Upcoming Encounters Date Type Specialty Care Team Description 02/21/2022 Laboratory Laboratory Processing [facility] Mobile Home Draw [address] [place] [address] 02/23/2022 Laboratory Laboratory Johanna Bojorquez [facility] [address] [place] [address] 02/23/2022 Hem/Onc Treatment Hematology Oncology [place], Chair 11 Hem Onc Scenery [address] [place] [address] 02/24/2022 Home Visit Family Medicine Kaylee Barakat, Community Health Post Tronic Machine Operator [address] [place] [address] 03/03/2022 Office Visit Gynecology Obstetrics Concetta Khan MD 400 [facility] [place], [place] [id number] 03/07/2022 Laboratory Laboratory Processing [facility], [facility] Mobile Home Draw [address] [place] [address] 03/16/2022 Hem/Onc Treatment Hematology Oncology [place], Chair 2 Hem Onc Scenery 200 [facility] [place] [address] 03/22/2022 [facility] July Poe, RN 132 [facility] [place] [address] 03/24/2022 Office Visit Pulmonary Reynaldo Marquez MD [address] [place] [address] 04/06/2022 Laboratory Laboratory [facility] [address] [facility] [place] [address] 04/06/2022 Office Visit Hematology Oncology Tono Sanchez MD [address] [place] [address] 04/06/2022 Hem/Onc Treatment Hematology Oncology [place], Chair 10 Hem Onc Scenery [facility] [address] 04/06/2022 Office Visit Pharmacy Pharmacist1, [facility] 200 [facility] [place] [address] 04/26/2022 Telemedicine Endocrinology Alberta Duque PA-C [address] [place] [address] 04/28/2022 Office Visit Gastroenterology Lyssa Stout CRNP [address] [place] [address] 05/05/2022 Office Visit Cardiology [facility] [place] [address] 05/30/2022 Office Visit Gynecology Obstetrics Susan Jara MD [address] [place] [id number] 06/24/2022 Office Visit Sleep Disorders Love Francisco, [address] [place] [address] Scheduled Procedures Name Priority Associated Diagnoses Date/Ti [...] this encounter Implants Implanted Type Area Refrigeration Houseman Device Identifier Shelf Expiration Date Model / Serial / Lot Microtech Sure Clip Implanted:Qty: 2 on 06/03/2020 by Janis Hatch DO at OR [facility] Clip N/A: Colon 04/21/2022 [facility]-F-26-2 35-C-R / / [id number] documented as of this encounter Advance Directives Documents on File Type Date Recorded Patient Public Address Systems Mechanic 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 WILL AND HEALTH CARE POA Power of Welfare Adviser 04/29/2021 12:00 AM TOM R OF ROTATING EQUIPMENT ENGINEER HEALTH CARE POA Advanced Directive 04/01/2021 [...] Syed Bustos Spouse Emergency Contact Care Teams Counselor Camp Relationship Specialty Start Date End Date Vanita Dunn MD [address] [place] [address] PCP - General Family Medicine 03/16/21 documented as of this encounter
--- OUTSIDE RECORDS SUMMARY | 2023-05-10 18:50 | External Medical Summary ---
Author Name Unknown Address Unknown Organization : Laboratory Report Ordering Provider Test Date Status PATRICIA FERNÁNDEZ 02/14/2022 10:20:02 Final Observation Date Value Abnormality Reference (Units ) Status Glucose Point of Care 02/14/2022 10:20:02 181 Above high normal 70-120 (mg/dL) Final Performing Location
--- OUTSIDE RECORDS SUMMARY | 2023-05-10 18:50 | External Medical Summary | Summary of Care ---
Author Name Unknown Organization [place] [address] Care Team Providers Care Infection Control Specialist Name Role Phone Vanita Dunn MD Primary Care Provid er Reason for Visit * Reason Onset Date Comments COVID-19 Screening 02/13/2022 Encounter Details Date Type Department Care Team Description 02/13/2022 Telephone COVID19 Screening [facility] DEPT CLOSED 06/22/21 [address] [place] [id number], Automated Provider COVID-19 Screening 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 documented as of this encounter (statuses as of 02/14/2022) Medications Medication Sig Dispensed Refills Start Date End Date Status nystatin (NYSTOP) 617304 UNIT/GM powder Apply topically to affected area 3 times a day. 60 g 1 10/16/2019 Active Dexcom G6 Passenger Coach Driver Device Use as directed. To test blood sugars 4 times a day Dx E11.9 1 Each 0 09/14/2020 Active Dexcom G6 Transmitter Use as directed. To test blood sugars 4 times a day. Change every 90 days. 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 05/13/2011 04/07/2016 Obstructive sleep apnea 01/18/2011 12/27/19 [...] as of this encounter (statuses as of 02/14/2022) Immunizations Name Administration Dates Next Due COVID-19 [...] Notes * Telephone Encounter - Covid Results [facility] - 02/14/2022 4:15 AM EDT Outreach Attempts Feb 13 2022 5:01PM - Fail to reach patient IVR Message: Unsuccessful contact, no education provided documented in this encounter Plan of Treatment Upcoming Encounters Date Type Specialty Care Team Description 02/21/2022 Laboratory Laboratory Processing [facility], [facility] Mobile Home Draw [address] [place] [address] 02/23/2022 Laboratory Laboratory Johanna Bojorquez [facility] [address] [place] [address] 02/23/2022 Hem/Onc Treatment Hematology Oncology [place], Chair 11 Hem Onc Scenery [address] [place] [address] 02/24/2022 Home Visit Family Medicine Kaylee Barakat, Community Health Nurses Supervisor [address] [place] [address] 03/03/2022 Office Visit Gynecology Obstetrics Concetta Khan MD 400 [facility] [place], [place] [phone] 03/07/2022 Laboratory Laboratory Processing [facility], [facility] Mobile Home Draw [address] [place] [address] 03/16/2022 Hem/Onc Treatment Hematology Oncology [place], Chair 2 Hem Onc Scenery 200 [facility] [place] [address] 03/22/2022 [facility] July Poe, RN [facility] [place] [address] 03/24/2022 Office Visit Pulmonary Reynaldo Marquez MD [address] [place] [address] 04/06/2022 Laboratory Laboratory [facility] 200 [facility] [place] [address] 04/06/2022 Office Visit Hematology Oncology Tono Sanchez MD [address] [place] [facility] [address] 04/06/2022 Hem/Onc Treatment Hematology Oncology [place], Chair 10 Hem Onc Scenery [facility] [address] 04/06/2022 Office Visit Pharmacy Pharmacist1, [facility] 200 [place] [address] 04/26/2022 Telemedicine Endocrinology Alberta Duque PA-C [address] [place] [address] 04/28/2022 Office Visit Gastroenterology Lyssa Stout CRNP [address] [place] [address] 05/05/2022 Office Visit [facility]iology [facility] [place] [address] 05/30/2022 Office Visit Gynecology Obstetrics Susan Jara MD [address] [place] [phone] 06/24/2022 Office Visit Sleep Disorders Love Franciscoaret, [address] [place] [address] Scheduled Procedures Name Priority Associated Diagnoses Date/Ti me HYSTEROSCOPY WITH BIOPSY AND /OR POLYPECTOMY WITH OR WITHOUT D&C PMB (postmenopausal bleeding) 02/14/2022 9:39 AM EDT INSERTION OF INTRAUTERINE DEVICE PMB (postmenopausal bleeding) 02/14/2022 9:39 AM EDT ESOPHAGOGASTRODUODENOSCOPY ( EGD), FLEXIBLE, TRANSORAL, DIAGNOSTIC Recall Esophagitis COLONOSCOPY FLEXIBLE PROXIMA L DIAGNOSTIC Recall History of colonic polyps Health [...] of this encounter Implants Implanted Type Area Auto Claim Representative Device Identifier Shelf Expiration Date Model / Serial / Lot Microtech Sure Clip Implanted:Qty: 2 on 06/03/2020 by Janis Hatch DO at OR [facility] Clip N/A: Colon 04/21/2022 [facility]-F-26-2 35-C-R / / [id number] documented as of this encounter Advance Directives Documents on File Type Date Recorded Patient Banking Pin Adjuster 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 AND HEALTH CARE POA Power of Head Librarian 04/29/2021 12:00 AM TOM R OF LEAD FABRICATOR HEALTH CARE POA Advanced Directive 04/01/2021 1:14 [...] Advance Directives occurred with: Patient Full Code 02/18/2021 1:08 AM 02/20/2021 8:55 PM This order reflects the patients wishes and were consensually agreed upon. Discussion of Advance Directives occurred with: Patient Healthcare Agents on File Name Relationship Healthcare Agent Relationshi p Communication Syed Bustos Spouse Emergency Contact Care Teams Infection Control Specialist Relationship Specialty Start Date End Date Vanita Dunn MD [address] [place] [address] PCP - General Family Medicine 03/16/21 documented as of this encounter
--- OUTSIDE RECORDS SUMMARY | 2023-05-10 18:51 | External Medical Summary | Summary of Care ---
Author Name Unknown Organization [place] [address] Care Team Providers Care Subject Scientific Research Name Role Phone Vanita Dunn MD Primary Care Provid er Reason for Visit * Reason Onset Date Comments Med Request 02/10/2022 emla cream Encounter Details Date Type Department Care Team Description 02/10/2022 Refill Hematology/Oncology Treatment, [address] [phone] Tono Sanchez MD [address] [place] [address] Encounter for antineoplastic chemotherapy* 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 documented as of this encounter (statuses as of 02/10/2022) Medications Medication Sig Dispensed Refills Start Date End Date Status nystatin (NYSTOP) 055278 UNIT/GM powder Apply topically to affected area 3 times a day. 60 g 1 10/16/2019 Active Dexcom G6 Level Designer Device Use as directed. To test blood sugars 4 times a day Dx E11.9 1 Each 0 09/14/2020 Active Dexcom G6 Transmitter Use as directed. To test blood sugars 4 times a day. Change every 90 days. Dx E11.9 1 Each 3 09/14/2020 Active OneTouch Verio In Vitro Strip (Glucose Blood) TESTING once daily 100 Strip 3 10/29/2020 Active OneTouch Delica Plus [id number] TESTING once daily 100 Each 3 10/29/2020 [...] as of this encounter (statuses as of 02/10/2022) Active Problems Problem Noted Date Food insecurity [...] as of this encounter (statuses as of 02/10/2022) Resolved Problems Problem Noted Date Resolved Date [...] pain 01/24/2012 01/17/2017 Genetic Sleep Disorder Research Other*[id number] 05/13/2011 04/07/2016 Obstructive sleep apnea 01/18/2011 12/27/19 [...] as of this encounter (statuses as of 02/10/2022) Immunizations Name Administration Dates Next Due COVID-19 [...] Telephone Encounter - Tono Sanchez MD - 02/10/2022 3:28 PM EDT E-prescribed Tono Sanchez MD Hem/Onc * Telephone Encounter - Dinorah Teixeira LPN - 02/10/2022 11:08 AM EDT Patient requesting Emla cream for port flush Script pended * Telephone Encounter - Renetta Schuler RN - 02/10/2022 10:57 AM EDT Pt requesting Emla cream. Please send to [facility] in [place]. documented in this encounter Plan of Treatment Upcoming Encounters Date Type Specialty Care Team Description 02/12/2022 Nurse Only Ancillary Glh, Pre Surgical Covid Testing [address] [place] [address] 02/14/2022 Hospital Encounter Surgery Concetta Khan MD [address] [place] [address] 02/14/2022 Surgery Surgery Concetta Khan MD [address] [place] [address] HYSTEROSCOPY WITH BIOPSY AND/OR POLYPECTOMY WITH OR WITHOUT D&C 02/21/2022 Laboratory Laboratory Processing [facility] Mobile Home Draw [address] [place] [address] 02/23/2022 Laboratory Laboratory [place], Lab Scenery [address] [place] [address] 02/23/2022 Hem/Onc Treatment Hematology Oncology [place], Chair 11 Hem Onc Scenery [address] [place] [address] 02/24/2022 Home Visit Family Medicine Kaylee Barakat, Community Health Director Data [address] [place] [address] 03/03/2022 Office Visit Gynecology Obstetrics Concetta Khan MD [address] [place] [address] 03/07/2022 Laboratory Laboratory Processing [facility] Mobile Home Draw [address] [place] [address] 03/16/2022 Hem/Onc Treatment Hematology Oncology [place], Chair 2 Hem Onc Scenery [address] [facility] [address] 03/22/2022 [facility] Visit [facility] July Poe RN [address] [place] [address] 03/24/2022 Office Visit Pulmonary [facility]aldo [facility]quez MD [address] [facility] [address] 04/06/2022 Laboratory Laboratory [place], Lab Scenery [address] [facility] [address] 04/06/2022 Office Visit Hematology Oncology Zelda Kirk CRNP 200 [facility] [place] [address] 04/06/2022 Office Visit Pharmacy Pharmacist1, [facility] [address] [place] [place] [address] 04/06/2022 Hem/Onc Treatment Hematology Oncology [place], Chair 10 Hem Onc Scenery 200 [facility] [place] [address] 04/26/2022 Telemedicine Endocrinology Alberta Duque PA-C [address] [place] [address] 04/28/2022 Office Visit Gastroenterology Lyssa Stout CRNP 132 [facility] [place] [address] 05/05/2022 Office Visit Cardiology Quyen Canseco CRNP [address] [place] [address] 05/30/2022 Office Visit Gynecology Obstetrics Susan Jara MD 400 [place] [address] 06/24/2022 Office Visit Sleep Disorders Love Francisco DO [address] [place] [address] Scheduled Procedures Name Priority Associated Diagnoses Date/Ti [...] Completed , 06/01/2020, 06/05/2019, Additional history exists COVID-19 Vaccine Completed 07/26/2021, 08/2021, 11/23/2020 GARDASIL-HPV IMMUNIZATION SERIES Aged Out No longer eligible based on patient's age to complete this topic MENINGOCOCCAL (MENACTRA/MENVEO) Aged Out No longer eligible based on patient's age to complete this topic documented as of this encounter Implants Implanted Type Area Associate Director Regulatory Affairs Device Identifier Shelf Expiration Date Model / Serial / Lot Microtech Sure Clip Implanted:Qty: 2 on 06/03/2020 by Janis Hatch DO at OR [facility] Clip N/A: Colon 04/21/2022 [facility]-F-26-2 35-C-R / / [id number] documented as of this encounter Visit Diagnoses Diagnosis Encounter for antineoplastic chemotherapy- Primary PMB (postmenopausal bleeding) Postmenopausal bleeding documented in this encounter Advance Directives Documents on File Type Date Recorded Patient Skilled Nursing Facility Counselor 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 WILL AND HEALTH CARE POA Power of Bike Assembler 04/29/2021 12:00 AM TOM R OF CRITICAL CARE PARAMEDIC HEALTH CARE POA Advanced Directive 04/01/2021 1:14 [...] Syed Bustos Spouse Emergency Contact Care Teams Subject Scientific Research Relationship Specialty Start Date End Date Vanita Dunn MD [address] [place] [address] PCP - General Family Medicine 03/16/21 documented as of this encounter
--- OUTSIDE RECORDS SUMMARY | 2023-05-10 18:51 | External Medical Summary | Summary of Care ---
Author Name Unknown Organization [place] [address] Care Team Providers Care Computer Numerical Control Operator Name Role Phone Vanita Dunn MD Primary Care Provid er Reason for Visit * Reason Comments Outpatient Testing Encounter Details Date Type Department Care Team Description 02/12/2022 Nurse Only Pre Surg Covid Testing, [place] [address] [place] [address] [facility], Pre Surgical Covid Testing [address] [place] [address] Outpatient Testing 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 documented as of this encounter (statuses as of 02/12/2022) Medications Medication Sig Dispensed Refills Start Date End Date Status nystatin (NYSTOP) 075628 UNIT/GM powder Apply topically to affected area 3 times a day. 60 g 1 10/16/2019 Active Dexcom G6 Surface Water Technician Device Use as directed. To test blood sugars 4 times a day Dx E11.9 1 Each 0 09/14/2020 Active Dexcom G6 Transmitter Use as directed. To test blood sugars 4 times a day. Change every 90 days. Dx E11.9 1 Each 3 09/14/2020 Active OneTouch Verio In Vitro Strip (Glucose Blood) TESTING once daily 100 Strip 3 10/29/2020 Active OneTouch Delica Plus [id number] TESTING once daily 100 Each 3 10/29/2020 [...] as of this encounter (statuses as of 02/12/2022) Active Problems Problem Noted Date Food insecurity [...] as of this encounter (statuses as of 02/12/2022) Resolved Problems Problem Noted Date Resolved Date [...] pain 01/24/2012 01/17/2017 Genetic Sleep Disorder Research Other*[id number] 05/13/2011 04/07/2016 Obstructive sleep apnea 01/18/2011 12/27/19 [...] as of this encounter (statuses as of 02/12/2022) Immunizations Name Administration Dates Next Due COVID-19 [...] Encounters Date Type Specialty Care Team Description 02/14/2022 Hospital Encounter Surgery Concetta Khan MD [address] [place] [id number] 02/14/2022 Surgery Surgery Concetta Khan MD [address] [place] [id number] HYSTEROSCOPY WITH BIOPSY AND/OR POLYPECTOMY WITH OR WITHOUT D&C 02/21/2022 Laboratory Laboratory Processing [facility] Mobile Home Draw [address] [facility] [place] [address] 02/23/2022 Laboratory Laboratory Maryellen Lab Scenery [address] [place] [address] 02/23/2022 Hem/Onc Treatment Hematology Oncology [place], Chair 11 Hem Onc Scenery [address] [place] [address] 02/24/2022 Home Visit Family Medicine Kaylee Barakat, Community [facility] Livestock Trucker [address] [place] [address] 03/03/2022 Office Visit Gynecology Obstetrics Concetta Khan MD [address] [place] [id number] 03/07/2022 Laboratory Laboratory Processing [facility] Mobile Home Draw [address] [place] [address] 03/16/2022 Hem/Onc Treatment Hematology Oncology [place], Chair 2 Hem Onc Scenery [address] [place] [address] 03/22/2022 [facility]oe [facility] [address] [facility] [address] 03/24/2022 Office Visit Pulmonary Reynaldo Marquez MD [address] [place] [address] 04/06/2022 Laboratory Laboratory [facility] [address] [place] [address] 04/06/2022 Office Visit Hematology Oncology Tono Sanchez MD [address] [place] [address] 04/06/2022 Hem/Onc Treatment Hematology Oncology [place], Chair 10 Hem Onc Scenery [address] [place] [address] 04/06/2022 Office Visit Pharmacy Pharmacist1, [facility] [address] [place] [address] 04/26/2022 Telemedicine Endocrinology Alberta Duque PA-C [address] [place] [address] 04/28/2022 Office Visit Gastroenterology Lyssa Stout CRNP [facility] [place] [address] 05/05/2022 Office Visit Cardiology Quyen Canseco CRNP 132 [facility] [place] [address] 05/30/2022 Office Visit Gynecology Obstetrics Susan Jara MD [address] [place] [address] [place] [id number] 06/24/2022 Office Visit Sleep Disorders Francisco Love Tracie, DO [address] [place] [address] Pending Results Name Type Priority Associated Diagnoses Date /Time SARS-COV-2 (COVID-19), NAAT Lab Routine Preop testing 02/12/2022 12:43 PM EDT Scheduled Procedures Name Priority Associated [...] of this encounter Implants Implanted Type Area Cullet Washer Device Identifier Shelf Expiration Date Model / Serial / Lot Microtech Sure Clip Implanted:Qty: 2 on 06/03/2020 by Janis Hatch DO at OR [facility] Clip N/A: Colon 04/21/2022 [facility]-F-26-2 35-C-R / / [id number] documented as of this encounter Visit Diagnoses Diagnosis Preop testing Preoperative examination, unspecified PMB (postmenopausal bleeding) Postmenopausal bleeding documented in this encounter Advance Directives Documents on File Type Date Recorded Patient Director Of Annual Giving 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 WILL AND HEALTH CARE POA Power of Singe Machine Operator 04/29/2021 12:00 AM TOM R [facility] POA Advanced Directive 04/01/2021 1:14 [...] Syed Bustos Spouse Emergency Contact Care Teams Computer Numerical Control Operator Relationship Specialty Start Date End Date Vanita Dunn MD [address] [place] [address] PCP - General Family Medicine 03/16/21 documented as of this encounter
--- OUTSIDE RECORDS SUMMARY | 2023-05-10 18:51 | External Medical Summary ---
Author Name Unknown Address Unknown Organization [id number]:LABORATORY [facility] - [address] [place] [address] Laboratory Report Ordering Provider Test Date Status PATRICIA FERNÁNDEZ 02/12/2022 12:43:56 Final Observation Date Value Abnormality Reference (Units ) Status SARS Coronavirus 2 02/12/2022 12:43:56 Negative N egative Final Performing Location LAB[facility]ORY [facility] - [address] [place] [address]
--- OUTSIDE RECORDS SUMMARY | 2023-05-10 18:51 | External Medical Summary ---
Author Name Unknown Address Unknown Organization K01:LABORATORY [facility] - [address] [place] [address] Laboratory Report Ordering Provider Test Date Status JACOB CORBETT 02/09/2022 10:50:00 Final Observation Date Value Abnormality Reference (Units ) Status Iron 02/09/2022 10:50:00 63 33-151 (ug /dL) Final Iron-binding capacity 02/09/2022 10:50:00 264 250-425 (ug/dL) Final Transferrin Sat % 02/09/2022 10:50:00 24 15 -55 (%) Final Performing Location LABORATORY [facility] - [address] [place] [address]
--- OUTSIDE RECORDS SUMMARY | 2023-05-10 18:51 | External Medical Summary ---
Author Name Unknown Address Unknown Organization K0G[facility] [address] [place] [address] Laboratory Report Ordering Provider Test Date Status JACOB CORBETT 02/09/2022 10:50:00 Final Observation Date Value Abnormality Reference (Units ) Status Nucleated erythrocytes/100 leukocytes [Ratio] in Blood by Automated count 02/09/2022 10:50:00 Final Anisocytosis [Presence] in Blood by Light microscopy 02/09/2022 10:50:00 Slight Abnormal None Seen Final Elliptocytes [Presence] in Blood by Light microscopy 02/09/2022 10:50:00 Few Abnormal None Seen Final Macrocytes [Presence] in Blood by Light microscopy 02/09/2022 10:50:00 Present Abnormal None Seen Final Schistocytes 02/09/2022 10:50:00 Few Abnormal None Seen Final Dacrocytes [Presence] in Blood by Light microscopy 02/09/2022 10:50:00 Few Abnormal None Seen Final Giant platelets [Presence] in Blood by Light microscopy 02/09/2022 10:50:00 Present Abnormal None Seen Final Performing Location LABORATORY [facility] [place] [facility] 0 - [address] [place] [address]
--- OUTSIDE RECORDS SUMMARY | 2023-05-10 18:51 | External Medical Summary ---
Author Name Unknown Address Unknown Organization K0G:LABORATORY [place] 57[address] - [address] [place] [address] Laboratory Report Ordering Provider Test Date Status JACOB CORBETT 02/09/2022 10:50:00 Final Observation Date Value Abnormality Reference (Units ) Status WBC, Total 02/09/2022 10:50:00 2.42 Below low normal 4. 00-10.80 (K/uL) Final RBC 02/09/2022 10:50:00 2.99 Below low normal 3.8 5-5.15 (M/uL) Final Hemoglobin 02/09/2022 10:50:00 10.5 Below low normal 12 .0-15.3 (g/dL) Final HCT 02/09/2022 10:50:00 33.0 Below low normal 36. 0-45.2 (%) Final MCV 02/09/2022 10:50:00 110.4 Above high normal 81 .5-97.5 (fL) Final MCH 02/09/2022 10:50:00 35.1 Above high normal 27 .0-34.0 (pg) Final MCHC 02/09/2022 10:50:00 31.8 Below low normal 32. 0-36.0 (g/dL) Final RDW 02/09/2022 10:50:00 18.9 Above high normal 11 .5-15.5 (%) Final Platelets 02/09/2022 10:50:00 72 Below low normal 140 -400 (K/uL) Final MPV 02/09/2022 10:50:00 13.6 Above high normal 6. 6-11.1 (fL) Final Performing Location LABORATORY [facility] [place] [address] - [address] [place] [address]
--- OUTSIDE RECORDS SUMMARY | 2023-05-10 18:52 | External Medical Summary | Summary of Care ---
Author Name Unknown Organization [place] [address] Care Team Providers Care Certified Personal Finance Counselor Name Role Phone Vanita Dunn MD Primary Care Provid er Reason for Visit * Reason Comments IV Therapy Venofer Encounter Details Date Type Department Care Team Description 02/02/2022 Hem/Onc Treatment Hematology/Oncology Treatment, [place] [address] [place] [address] Mary[place], Chair 2 Hem Onc Scenery [address] [facility] [place] [address] Iron deficiency anemia due to chronic blood loss* 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 documented as of this encounter (statuses as of 02/02/2022) Medications Medication Sig Dispensed Refills Start Date End Date Status nystatin (NYSTOP) 812957 UNIT/GM powder Apply topically to affected area 3 times a day. 60 g 1 10/16/2019 Active Dexcom G6 Angle Shear Set Up Operator Device Use as directed. To test blood sugars 4 times a day Dx E11.9 1 Each 0 09/14/2020 Active Dexcom G6 Transmitter Use as directed. To test blood sugars 4 times a day. Change every 90 days. Dx E11.9 1 Each 3 09/14/2020 Active OneTouch Verio In Vitro Strip (Glucose Blood) TESTING once daily 100 Strip 3 10/29/2020 Active OneTouch Delica Plus [id number] TESTING once daily 100 Each 3 10/29/2020 [...] ONCE DAILY 90 Tablet 1 01/18/2022 Active documented as of this encounter (statuses as of 02/02/2022) Active Problems Problem Noted Date Food insecurity [...] as of this encounter (statuses as of 02/02/2022) Resolved Problems Problem Noted Date Resolved Date [...] 08/19/2016 09/13/2021 Depression with anxiety 08/19/2016 02/14/20 Hepatic cirrhosis 08/19/2016 03/28/2017 Polyuria 08/09/2016 01/17/2017 [...] pain 01/24/2012 01/17/2017 Genetic Sleep Disorder Research Other*[id number] 05/13/2011 04/07/2016 Obstructive sleep apnea 01/18/2011 12/27/19 [...] as of this encounter (statuses as of 02/02/2022) Immunizations Name Administration Dates Next Due COVID-19 [...] Sign Reading Time Taken Comments Blood Pressure 103/61 02/02/2022 1:34 PM EDT Pulse 62 02/02/2022 1:34 PM EDT Temperature 36.4 C (97.5 F) 02/02/2022 1:34 PM ED T Respiratory Rate 18 02/02/2022 1:34 PM EDT Oxygen Saturation - - Inhaled [...] Nursing Notes * Renetta Schuler RN - 02/02/2022 3:54 PM EDT Pt completed treatment without issues. [...] No coverage. * Renetta Schuler RN - 02/02/2022 2:08 PM EDT Pt presents to clinic in personal w/c. VAD accessed without issues; Venofer infusing. Safety and Risk for Injury Patient will remain free from injury. Ensure appropriate safety devices are available. Provide and maintain safe environment. documented in this encounter Plan of Treatment Upcoming Encounters Date Type Specialty Care Team Description 02/09/2022 Laboratory Laboratory Processing [facility], [facility] Mobile Home Draw [address] [place] [address] 02/12/2022 Nurse Only Ancillary [place], Pre Surgical Covid Testing [address] [place] [address] 02/14/2022 Hospital Encounter Surgery Concetta Khan MD [address] [place] [id number] 02/14/2022 Surgery Surgery Concetta Khan MD [address] [place] [phone] HYSTEROSCOPY WITH BIOPSY AND/OR POLYPECTOMY WITH OR WITHOUT D&C 02/21/2022 Laboratory Laboratory Processing [facility], [facility] Mobile Home Draw [address] [place] [address] 02/23/2022 Laboratory Laboratory [place], Lab Scenery [address] [place] [address] 02/23/2022 Hem/Onc Treatment Hematology Oncology [place], Chair 11 Hem Onc Scenery [address] [facility] [address] 02/24/2022 Home Visit Family Medicine Kaylee Barakat, [facility] Receiving Dock Checker [address] [place] [address] 03/03/2022 Office Visit Gynecology Obstetrics Concetta Khan MD [address] [place] [id number] 03/07/2022 Laboratory Laboratory Processing [facility], [facility] Mobile Home Draw [address] [place] [address] 03/16/2022 Hem/Onc Treatment Hematology Oncology [place], Chair 2 Hem Onc Scenery [address] [facility] [address] 03/22/2022 [facility] Visit [facility] July Poe RN [address] [place] [address] 03/24/2022 Office Visit Pulmonary Reynaldo Marquez MD [address] [place] [address] 04/06/2022 Laboratory Laboratory [place], Lab Scenery [address] [place] [address] 04/06/2022 Office Visit Hematology Oncology Zelda Kirk CRNP [address] [place] [address] 04/06/2022 Office Visit Pharmacy Pharmacist1, [facility] Sp [address] [place] [address] 04/06/2022 Hem/Onc Treatment Hematology Oncology [place], Chair 10 Hem Onc Scenery [address] [place] [address] 04/26/2022 Telemedicine Endocrinology Alberta Duque PA-C [address] [place] [address] 04/28/2022 Office Visit Gastroenterology Lyssa Stout CRNP [address] [place] [address] 05/05/2022 Office Visit Cardiology Quyen Canseco CRNP [address] [place] [address] 05/30/2022 Office Visit Gynecology Obstetrics Susan Jara MD [address] [place] [address] [place] [address] 06/24/2022 Office Visit Sleep Disorders Love Francisco DO [address] [place] [address] Scheduled Procedures Name Priority Associated Diagnoses Date/Ti [...] of this encounter Implants Implanted Type Area Housekeeping Associate Device Identifier Shelf Expiration Date Model / Serial / Lot Microtech Sure Clip Implanted:Qty: 2 on 06/03/2020 by Janis Hatch DO at OR [facility] Clip N/A: Colon 04/21/2022 [facility]-F-26-2 35-C-R / / [id number] documented as of this encounter Visit Diagnoses Diagnosis Iron deficiency anemia due to chronic blood loss- Primary Iron deficiency anemia secondary to blood loss (chronic) PMB (postmenopausal bleeding) Postmenopausal bleeding documented in this encounter Administered Medications Active Administered Medications - up to 3 most recent administrations Medication Order MAR Action Action Date Dose Rate Site diphenhydrAMINE (Benadryl) inj 50 mg 50 mg, IV Push, ONCE PRN Other, Hypersensitivity Reaction, Starting on Mon02/02/22 at 1352, Until [place] 02/03/22 at 1351, For 24 hours EPINEPHrine 1 MG/ML inj 0.3 mg 0.3 mg, Intramuscular, ONCE PRN Other, Hypersensitivity Reaction or Anaphylaxis, Starting on Mon02/02/22 at 1352, Until [place] 02/03/22 at 1351, For 24 hours hEParin 100 UNIT/ML Lock Flush inj 500 Units 500 Units (5 mL), IV Lock, PRN Other, IV Flush, Starting on Mon02/02/22 at 1352, Until [place] 02/03/22 at 1351, For 24 hours, Do not flush if lock, PICC, or central line not in place; IV infusing or unable to flush. Given 02/02/2022 3:35 PM EDT 500 Units Hydrocortisone Na Succinate PF (Solu-Cortef) inj 100 mg 100 mg, IV Push, ONCE PRN Other, Hypersensitivity Reaction, Starting on Mon02/02/22 at 1352, Until [place] 02/03/22 at 1351, For 24 hours NSS infusion 500 mL, Intravenous, at 50 mL/hr, CONTINUOUS, Starting on Mon02/02/22 at 1500, Until [place] 02/03/22 at 0059 Start Infusion 02/02/2022 1:50 PM EDT 500 mL 50 mL/hr sodium chloride 0.9 % flush/inj 10 mL 10 mL, IV Push, PRN Other, IV Flush, Starting on Mon02/02/22 at 1352, Until [place] 02/03/22 at 1351, For 24 hours, Do not flush if lock, PICC, or central line not in place; IV infusing or unable to flush. Given 02/02/2022 3:34 PM EDT 10 mL Inactive Administered Medications - up to 3 most recent administrations Medication Order MAR Action Action Date Dose Rate Site Iron Sucrose (Venofer) 300 mg in NSS 250 mL ivpb 300 mg, IV Piggyback, ONCE, 1 dose, On Mon02/02/22 at 1530, Administer over 90 Minutes Start Infusion 02/02/2022 2:00 PM EDT 300 mg 166.67 mL/hr documented in this encounter Advance Directives Documents on File Type Date Recorded Patient Cvt Tech 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 Directive Advanced Directive Advanced Directive Advanced Directive 12/16/2021 10:55 AM Advance Directives and Living Will 04/29/2021 12:00 AM ADVANCE DIRECTIVE / LIVING WILL LIVING WILL AND HEALTH CARE POA Power of Radiology Scheduler 04/29/2021 12:00 AM TOM R OF [facility]LE [facility] POA Advanced Directive 04/01/2021 1:14 [...] Syed Bustos Spouse Emergency Contact Care Teams Certified Personal Finance Counselor Relationship Specialty Start Date End Date Vanita Dunn MD [address] [facility] [place] [address] PCP - General Family Medicine 03/16/21 documented as of this encounter
--- OUTSIDE RECORDS SUMMARY | 2023-05-10 18:52 | External Medical Summary ---
Author Name Unknown Address Unknown Organization K01:LABORATORY [facility] - [address] [place] [address] Laboratory Report Ordering Provider Test Date Status JACOB CORBETT 02/09/2022 10:50:00 Final Observation Date Value Abnormality Reference (Units ) Status Ferritin 02/09/2022 10:50:00 166 Above high normal 13 -150 (ng/mL) Final Performing Location LAB[facility]ATORY [facility] - [address] [place] [id number]
--- OUTSIDE RECORDS SUMMARY | 2023-05-10 18:52 | External Medical Summary | Summary of Care ---
Author Name Unknown Organization [facility] [place] [address] Care Team Providers Care Ag Service Manager Name Role Phone Vanita Dunn MD Primary Care Provid er Reason for Visit * Reason Onset Date Comments Pre-Op Testing 01/25/2022 Encounter Details Date Type Department Care Team Description 01/25/2022 Telephone Gynecology/Obstetrics [facility] [address] [place] [address] Concteta Khan MD [address] [place] [address] Pre-Op Testing 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 documented as of this encounter (statuses as of 02/03/2022) Medications Medication Sig Dispensed Refills Start Date End Date Status nystatin (NYSTOP) 393329 UNIT/GM powder Apply topically to affected area 3 times a day. 60 g 1 10/16/2019 Active Dexcom G6 Feed Mill Operator Device Use as directed. To test blood sugars 4 times a day Dx E11.9 1 Each 0 09/14/2020 Active Dexcom G6 Transmitter Use as directed. To test blood sugars 4 times a day. Change every 90 days. Dx E11.9 1 Each 3 09/14/2020 Active OneTouch Verio In Vitro Strip (Glucose Blood) TESTING once daily 100 Strip 3 10/29/2020 Active OneTouch Delica Plus [id number] TESTING once daily 100 Each 3 10/29/2020 [...] as of this encounter (statuses as of 02/03/2022) Active Problems Problem Noted Date Food insecurity [...] as of this encounter (statuses as of 02/03/2022) Resolved Problems Problem Noted Date Resolved Date [...] pain 01/24/2012 01/17/2017 Genetic Sleep Disorder Research Other*[id number] 05/13/2011 04/07/2016 Obstructive sleep apnea 01/18/2011 12/27/19 [...] as of this encounter (statuses as of 02/03/2022) Immunizations Name Administration Dates Next Due COVID-19 [...] Miscellaneous Notes * Telephone Encounter - THAD Araiza - 01/25/2022 10:31 AM EDT Pt is scheduled for surgery on 02/14, Please order covid test. documented in this encounter Plan of Treatment Upcoming Encounters Date Type Specialty Care Team Description 02/09/2022 Laboratory Laboratory Processing [facility] Mobile Home Draw [address] [place] [address] 02/12/2022 Nurse Only Ancillary [facility], Pre Surgical Covid Testing [address] [place] [address] 02/14/2022 Hospital Encounter Surgery Concetta Khan MD [address] [place] [address] 02/14/2022 Surgery Surgery Concetta Khan MD [address] [place], [place] [phone] HYSTEROSCOPY WITH BIOPSY AND/OR POLYPECTOMY WITH OR WITHOUT D&C 02/21/2022 Laboratory Laboratory Processing [facility], [facility] Mobile Home Draw [address] [place] [address] 02/23/2022 Laboratory Laboratory [place], Lab Scenery [address] [place] [address] 02/23/2022 Hem/Onc Treatment Hematology Oncology [place], Chair 11 Hem Onc Scenery [address] [facility] [place] [address] 02/24/2022 Home Visit Family Medicine Kaylee Barakat, [facility] Computer System Validation Specialist [address] [place] [address] 03/03/2022 Office Visit Gynecology Obstetrics Concetta Khan MD [address] [facility] [place] [phone] 03/07/2022 Laboratory Laboratory Processing [facility], [facility] Mobile Home Draw [address] [place] [address] 03/16/2022 Hem/Onc Treatment Hematology Oncology [place], Chair 2 Hem Onc Scenery [address] [place] [address] 03/22/2022 [facility] Visit [facility] July Poe RN [address] [place] [address] 03/24/2022 Office Visit Pulmonary Reynaldo Marquez MD [address] [place] [facility] [place] [address] 04/06/2022 Laboratory Laboratory Maryellen Lab Scenery [address] [place] [address] 04/06/2022 Office Visit Hematology Oncology Zelda Kirk CRNP [address] [place] [address] 04/06/2022 Office Visit Pharmacy Pharmacist1, [facility] [address] [place] [address] 04/06/2022 Hem/Onc Treatment Hematology Oncology Maryellen, Chair 10 Hem Onc Scenery [address] [place] [address] 04/26/2022 Telemedicine Endocrinology Alberta Duque PA-C [address] [place] [address] 04/28/2022 Office Visit Gastroenterology Lyssa Stout CRNP [address] [facility] [address] 05/05/2022 Office Visit Cardiology [facility]yen [facility]seco CRNP [address] [facility] [address] 05/30/2022 Office Visit Gynecology Obstetrics Susan Jara MD [address] [facility] [place], [place] [address] 06/24/2022 Office Visit Sleep Disorders Love Francisco DO 132 [place] [address] Scheduled Procedures Name Priority Associated Diagnoses Date/Ti [...] Zoster Vaccines (3 of 3) 06/23/2020 04/28/2020, / Depression Screening, Annual for Pts 12 and [...] of this encounter Implants Implanted Type Area Drapery Estimator Device Identifier Shelf Expiration Date Model / Serial / Lot Microtech Sure Clip Implanted:Qty: 2 on 06/03/2020 by Janis Hatch DO at OR [facility] Clip N/A: Colon 04/21/2022 [facility]-F-26-2 35-C-R / / [id number] documented as of this encounter Advance Directives Documents on File Type Date Recorded Patient Service Clerk 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 LIVING WILL AND HEALTH CARE POA Power [facility] 04/29/2021 12:00 AM TOM [facility] POA Advanced Directive 04/01/2021 1:14 PM [...] Syed Bustos Spouse Emergency Contact Care Teams Ag Service Manager Relationship Specialty Start Date End Date Vanita Dunn MD [address] [place] [address] PCP - General Family Medicine 03/16/21 documented as of this encounter
--- OUTSIDE RECORDS SUMMARY | 2023-05-10 18:52 | External Medical Summary ---
Author Name Unknown Address Unknown Organization K[facility] [address] [place] [address] Laboratory Report Ordering Provider Test Date Status JACOB CORBETT 02/09/2022 10:50:00 Final Observation Date Value Abnormality Reference (Units ) Status SYNC LEUKOCYTES IN BLOOD BY AUTOMATED COUNT 02/09/2022 10:50:00 2.42 Below low normal 4.00-10.80 (K/uL) Final Segs 02/09/2022 10:50:00 52.0 40.0-75.0 (%) Final Lymphs % 02/09/2022 10:50:00 24.8 18.0-42.0 (%) Final Monos 02/09/2022 10:50:00 14.5 Above high normal 1.0-11.0 (%) Final Eosinophils 02/09/2022 10:50:00 7.9 Above high normal 0.0-6.0 (%) Final Basos 02/09/2022 10:50:00 0.8 0.0-2.0 (%) Final Absolute Segs 02/09/2022 10:50:00 1.26 Below low normal 1.80-7.70 (K/uL) Final Lymphs, absolute 02/09/2022 10:50:00 0.60 Below low normal 1.00-4.80 (K/ul) Final Monos, Abs 02/09/2022 10:50:00 0.35 0.00-1.10 (K/uL) Final Eos, Abs 02/09/2022 10:50:00 0.19 0.00-0.70 (K/uL) Final Basos, Abs 02/09/2022 10:50:00 0.02 0.00-0.20 (K/uL) Final Performing Location [facility] [address] [place] [address]
--- OUTSIDE RECORDS SUMMARY | 2023-05-10 18:53 | External Medical Summary | Summary of Care ---
Author Name Unknown Organization [facility] Address [place] [address] Care Team Providers Care Machine Clothing Replacer Name Role Phone Vanita Dunn MD Primary Care Provid er Reason for Visit * Reason Comments Diabetes Follow-Up Dosage Adjustment In Person (Anticoag Cl inic) Encounter Details Date Type Department Care Team Description 01/27/2022 Office Visit Pharmacy, [place] [address] [place] [address] [facility] [address] [place] [address] Type 2 diabetes mellitus with hemoglobin A1c goal of less than 8.0% ([facility])* 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 documented as of this encounter (statuses as of 01/27/2022) Medications Medication Sig Dispensed Refills Start Date End Date Status nystatin (NYSTOP) 652892 UNIT/GM powder Apply topically to affected area 3 times a day. 60 g 1 10/16/2019 Active Dexcom G6 Class C Truck Driver Device Use as directed. To test blood sugars 4 times a day Dx E11.9 1 Each 0 09/14/2020 Active Dexcom G6 Transmitter Use as directed. To test blood sugars 4 times a day. Change every 90 days. Dx E11.9 1 Each 3 09/14/2020 Active OneTouch Verio In Vitro Strip (Glucose Blood) TESTING once daily 100 Strip 3 10/29/2020 Active ElationEMRTouch Delica Plus [id number] TESTING once daily 100 Each 3 10/29/2020 [...] Lantus SoloStar 100 UNIT/ML Subcutaneous Solution Pen-injector 32 Units every night at bedtime . 0 [...] as of this encounter (statuses as of 01/27/2022) Active Problems Problem Noted Date Food insecurity 09/20/2021 Overview: Per [facility] Protocol Chronic diastolic (congestive) heart [...] as of this encounter (statuses as of 01/27/2022) Resolved Problems Problem Noted Date Resolved Date [...] pain 01/24/2012 01/17/2017 Genetic Sleep Disorder Research Other*[id number] 05/13/2011 04/07/2016 Obstructive sleep apnea 01/18/2011 12/27/19 [...] as of this encounter (statuses as of 01/27/2022) Immunizations Name Administration Dates Next Due COVID-19 [...] encounter Progress Notes * Jonas Atwood V, [facility] - 01/27/2022 1:59 PM EDT Images from the original note were not included. Medication Therapy Disease Management [facility] - Diabetes Management Progress Note Shaina Bustos, identified by name and date of , is a 66 year old female being seen for diabetesmanagement/education. Patient presents for return diabetic visit. DIABETES: Current diabetic medications: Novolog, Inject 32 units before breakfast, 36 units before lunch, and 36 units before supper Lantus pen, 32 units daily Metformin ER 500mg daily Trulicity 4.5mg SQ weekly GFR 84 as of 09/23/21 Medication Injection Site: Abdomen Lifestyle: [...] 04:35 PM CREATININE, RANDOM URINE - [facility] 115 01/11/2019 01:29 PM CREATININE, RANDOM URINE - [facility] 81 02/03/2017 09:58 AM CREATININE, RANDOM URINE - [facility] 168 08/25/2015 01:56 PM CREATININE-OUTSIDE LAB 0.72 12/18/2021 12:00 AM CREATININE-OUTSIDE LAB 0.80 08/09/2021 12:00 AM CREATININE-OUTSIDE LAB 0.77 08/24/2018 12:00 AM HYPERTENSION: Patient on ACEi/ARB: no, BP at goal BP Readings from Last 3 Encounters: 01/21/22 116/80 01/13/22 112/58 01/12/22 111/58 Blood pressure at goal: yes HYPERLIPIDEMIA: Patient is taking moderate or high intensity statin: yes HEALTH MAINTENANCE REVIEW: Health Maintenance Due Topic Date Due DIABETES-EYE EXAM 06/12/2019 DIABETES-URINE ALBUMIN/CREATININE EVERY 12 MONTHS 01/12/2020 Dexa Scan Never done Pneumococcal Vaccine: 65+ Years (3 - PPSV23 or PCV20) 2020 Zoster Vaccines (3 of 3) 06/23/2020 Depression Screening, Annual for Pts 12 and Over 07/27/2021 *URINE ALBUMIN/CREATININE RATIO ONCE FOR HTN Never done DIABETES-FOOT EXAM 04/05/2022 ASSESSMENT & PLAN: ICD-10-CM 1. Type 2 diabetes mellitus with hemoglobin A1c goal of less than 8.0% ([facility]) E11.9 BG Readings Blood sugars uncontrolled. Medications Reviewed current regimen, patient is not adherent to regimen. supper Novologonce a week Diet, Exercise, Lifestyle No significant lifestyle changes since last visit. Discussed with patient today. Patient is agreeable to wear Dexcom G6 CGM. Patient aware to contact clinic if any hypoglycemia before next visit. MEDICATION CHANGES: yes, see below; preferred pharmacy: [facility] Medications: INCREASE: Novolog, Inject 32 units before breakfast, 36 units before lunch, and 40 units before supper INCREASE: Lantus pen, 36 units daily Metformin ER 500mg daily Trulicity 4.5mg SQ weekly GFR 84 as of 09/23/21 HEALTH MAINTENANCE INTERVENTIONS: Labs: Ordered & Scheduled: Urine Microalbumin Immunizations: needs pneumococcal and shingles vaccine Foot Exam: Up to Date Eye Exam: patient reports she had it- she will check with her eye doctor Annual Wellness Visit: N/A FOLLOW UP: Return to clinic in 8 weeks at [facility] Visit date not found Jonas Atwood RPh, MATE[facility] Clinical Pharmacist - Data Entry Manager Medication Therapy Management Clinic 01/27/2022, 1:59 PM documented in this encounter Plan of Treatment Upcoming Encounters Date Type Specialty Care Team Description 02/01/2022 [facility] Visit [facility] July Poe, RN [address] [facility] [place] [address] 02/02/2022 Hem/Onc Treatment Hematology Oncology [place], Chair 2 Hem Onc Scen[address] [place] [address] 02/07/2022 Laboratory Laboratory [facility] Home Draw [address] [place] [address] 02/12/2022 Nurse Only Ancillary [facility], Pre [facility] [address] [facility] [place] [address] 02/14/2022 Hospital Encounter Surgery Concetta Khan MD [address] [facility] [address] 02/14/2022 Surgery Surgery Concetta [facility] [place] [id number] HYSTEROSCOPY WITH BIOPSY AND/OR POLYPECTOMY WITH OR WITHOUT D&C 02/21/2022 Laboratory Laboratory Processing [facility] Home Draw [address] [place] [address] 02/23/2022 Laboratory Laboratory [place], Lab Scenery [address] [place] [address] 02/23/2022 Hem/Onc Treatment Hematology Oncology [place], Chair 11 Hem Onc Scenery [address] [place] [address] 02/24/2022 Home Visit Family Medicine Kaylee Barakat, Community Health Sba Business Development Officer [address] [place] [address] 03/03/2022 Office Visit Gynecology Obstetrics Concetta Khan MD [address] [place] [id number] 03/07/2022 Laboratory Laboratory Processing [facility] Mobile Home Draw [address], [place] [id number] 03/16/2022 Hem/Onc Treatment Hematology Oncology [place], Chair 2 Hem Onc Scenery [address] [place] [address] 03/24/2022 Office Visit Pulmonary Reynaldo Marquez MD [address] [facility] [place] [address] 04/06/2022 Laboratory Laboratory [place], Lab Scenery [address] [place] [address] 04/06/2022 Office Visit Hematology Oncology Zelda Kirk CRNP [address] [place] [address] 04/06/2022 Office Visit Pharmacy Pharmacist1, [facility] Sp [address] [place] [address] 04/06/2022 Hem/Onc Treatment Hematology Oncology [place], Chair 10 Hem Onc Scenery [address] [place] [address] 04/26/2022 Telemedicine Endocrinology Alberta Duque PA-C [address] [place] [address] 04/28/2022 Office [facility] [place] [address] 05/05/2022 Office Visit Cardiology Quyen Canseco CRNP [address] [facility] [place] [address] 05/30/2022 Office Visit Gynecology Obstetrics Susan Jara MD [address] [facility] [place] [address] 06/24/2022 Office Visit Sleep Disorders Love Francisco DO [address] [facility] [place] [address] Scheduled Procedures Name Priority Associated Diagnoses Date/Ti [...] of this encounter Implants Implanted Type Area Castings Drafter Device Identifier Shelf Expiration Date Model / Serial / Lot Microtech Sure Clip Implanted:Qty: 2 on 06/03/2020 by Janis Hatch DO at OR [facility] Clip N/A: Colon 04/21/2022 ROC-F-26-2 35-C-R / / [id number] documented as of this encounter Visit Diagnoses Diagnosis Type 2 diabetes mellitus with hemoglobin A1c goal of less than 8.0% (HCC)- Primary PMB (postmenopausal bleeding) Postmenopausal bleeding documented in this encounter Advance Directives Documents on File Type Date Recorded Patient Senior Database Programmer 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 LIVING WILL AND HEALTH CARE POA Power [facility] 04/29/2021 12:00 AM TOM R [facility] POA Advanced Directive 04/01/2021 1:14 PM Advanced [...] Bustos Spouse Emergency Contact Care Teams Machine Clothing Replacer Relationship Specialty Start Date End Date Vanita Dunn MD [address] [place] [address] PCP - General Family Medicine 03/16/21 documented as of this encounter
--- OUTSIDE RECORDS SUMMARY | 2023-05-10 18:53 | External Medical Summary | Summary of Care ---
Author Name Unknown Organization [facility] [place] [address] Care Team Providers Care Color Corrector Name Role Phone Vanita Dunn MD Primary Care Provid er Encounter Details Date Type Department Care Team Description 02/01/2022 Telephone Gynecology/Obstetrics [facility] [address] [place] [address] Concetta Khan MD [address] [place] [address] 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 documented as of this encounter (statuses as of 02/01/2022) Medications Medication Sig Dispensed Refills Start Date End Date Status nystatin (NYSTOP) 384261 UNIT/GM powder Apply topically to affected area 3 times a day. 60 g 1 10/16/2019 Active Dexcom G6 Software Reliability Engineer Device Use as directed. To test blood sugars 4 times a day Dx E11.9 1 Each 0 09/14/2020 Active Dexcom G6 Transmitter Use as directed. To test blood sugars 4 times a day. Change every 90 days. Dx E11.9 1 Each 3 09/14/2020 Active OneTouch Verio In Vitro Strip (Glucose Blood) TESTING once daily 100 Strip 3 10/29/2020 Active OneTouch Delica Plus [id number] TESTING once daily 100 Each 3 10/29/2020 [...] as of this encounter (statuses as of 02/01/2022) Active Problems Problem Noted Date Food insecurity 09/20/2021 Overview: Per [facility] Protocol Chronic diastolic (congestive) heart jaymie [...] as of this encounter (statuses as of 02/01/2022) Resolved Problems Problem Noted Date Resolved Date [...] pain 01/24/2012 01/17/2017 Genetic Sleep Disorder Research Other*[id number] 05/13/2011 04/07/2016 Obstructive sleep apnea 01/18/2011 12/27/19 [...] as of this encounter (statuses as of 02/01/2022) Immunizations Name Administration Dates Next Due COVID-19 [...] 02/01/2022 Home Visit [facility] July Poe RN 132 [facility] [place] [address] 02/02/2022 Hem/Onc Treatment Hematology Oncology [place], Chair 2 Hem Onc Scenery [address] [place] [address] 02/07/2022 Laboratory Laboratory Processing [facility] Mobile Home Draw [address] [place] [address] 02/12/2022 Nurse Only Ancillary [facility], Pre Surgical Covid Testing [address] [facility] [place] [address] 02/14/2022 Hospital Encounter Surgery Concetta Khan MD [address] [facility] [place] [address] 02/14/2022 Surgery Surgery Concetta Khan MD 400 [facility] [place] [id number] HYSTEROSCOPY WITH BIOPSY AND/OR POLYPECTOMY WITH OR WITHOUT D&C 02/21/2022 Laboratory Laboratory Processing [facility] Mobile Home Draw [address] [place] [address] 02/23/2022 Laboratory Laboratory [place], Lab Scenery [address] [place] [address] 02/23/2022 Hem/Onc Treatment Hematology Oncology [place], Chair 11 Hem Onc Scenery [address] [place] [address] 02/24/2022 Home Visit Family Medicine Yuval Kaylee Belen, Community Health Youth Care Specialist [address] [place] [address] 03/03/2022 Office Visit Gynecology Obstetrics Concetta Khan MD [address] [place], [place] [phone] 03/07/[address] [facility] Home Draw [address] [place] [address] 03/16/2022 Hem/Onc Treatment Hematology Oncology [place], Chair 2 Hem Onc Scenery [address] [facility] [address] 03/24/2022 Office Visit Pulmonary Reynaldo Marquez MD [address] [place] [address] 04/06/2022 Laboratory Laboratory [place], Lab Scenery [address] [place] [address] 04/06/2022 Office Visit Hematology Oncology Zelda Kirk CRNP [address] [place] [address] 04/06/2022 Office Visit Pharmacy Pharmacist1, [facility] [address] [place] [address] 04/06/2022 Hem/Onc Treatment Hematology Oncology [place], Chair 10 Hem Onc Scenery [address] [place] [address] 04/26/2022 Telemedicine Endocrinology Alberta Duque PA-C [address] [place] [address] 04/28/2022 Office Visit Gastroenterology Lyssa Stout CRNP [address] [facility] [place] [address] 05/05/2022 Office Visit Cardiology Quyen Canseco CRNP [address] [place] [address] 05/30/2022 Office Visit Gynecology Obstetrics Susan Jara MD [address] [place] [address] [place] [address] 06/24/2022 Office Visit [facility] Disorders Love Francisco [facility] [place] [address] Scheduled Orders Name Type Priority Associated Diagnoses Orde r Schedule SARS-COV-2 (COVID-19), NAAT Lab Routine Preop testing Expected: 02/15/2022, Expires: 02/01/2023 Scheduled Procedures Name Priority Associated Diagnoses Date/Ti [...] of this encounter Implants Implanted Type Area Radiation Therapy Technologist Device Identifier Shelf Expiration Date Model / Serial / Lot Microtech Sure Clip Implanted:Qty: 2 on 06/03/2020 by Janis Hatch DO at OR [facility] Clip N/A: Colon 04/21/2022 ROCC-F-26-2 35-C-R / / [id number] documented as of this encounter Visit Diagnoses Diagnosis Preop testing- Primary Preoperative examination, unspecified PMB (postmenopausal bleeding) Postmenopausal bleeding documented in this encounter Advance Directives Documents on File Type Date Recorded Patient Bread Wrapper Operator 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 WILL LIVING WILL AND HEALTH CARE POA [facility] 04/29/2021 12:00 AM TOM Johnson [facility] POA Advanced Directive 04/01/2021 1:14 PM [...] Syed Bustos Spouse Emergency Contact Care Teams Color Corrector Relationship Specialty Start Date End Date Vanita Dunn MD [address] [place], [place] [id number] PCP - General Family Medicine 03/16/21 documented as of this encounter
--- OUTSIDE RECORDS SUMMARY | 2023-05-10 18:53 | External Medical Summary | Summary of Care ---
Author Name Unknown Organization [facility] [place] [address] Care Team Providers Care Sponge Hooker Name Role Phone Vanita Dunn MD Primary Care Provid er Reason for Visit * Reason Comments [facility]: Maintenance Encounter Details Date Type Department Care Team Description 02/01/2022 Home Visit [facility], [facility] 132 [facility] [place] [address] July Poe, RN 132 [facility] [place] [address] 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 documented as of this encounter (statuses as of 02/01/2022) Medications Medication Sig Dispensed Refills Start Date End Date Status nystatin (NYSTOP) 825539 UNIT/GM powder Apply topically to affected area 3 times a day. 60 g 1 10/16/2019 Active Dexcom G6 Bark Fitter Device Use as directed. To test blood sugars 4 times a day Dx E11.9 1 Each 0 09/14/2020 Active Dexcom G6 Transmitter Use as directed. To test blood sugars 4 times a day. Change every 90 days. Dx E11.9 1 Each 3 09/14/2020 Active OneTouch Verio In Vitro Strip (Glucose Blood) TESTING once daily 100 Strip 3 10/29/2020 Active OneTouch Delica Plus [id number] TESTING once daily 100 Each 3 10/29/2020 [...] pain 01/24/2012 01/17/2017 Genetic Sleep Disorder Research Other*[id number] 05/13/2011 04/07/2016 Obstructive sleep apnea 01/18/2011 12/27/19 [...] Reading Time Taken Comments Blood Pressure 118/64 02/01/2022 3:05 PM EDT Pulse 72 02/01/2022 3:05 PM EDT Temperature 36.6 C (97.9 F) 02/01/2022 3:05 PM ED T Respiratory Rate 18 02/01/2022 3:05 PM EDT Oxygen Saturation 98% 02/01/2022 3:05 PM EDT Inhaled Oxygen Concentration - - [...] Progress Notes * July Poe RN - 02/01/2022 2:42 PM EDT [facility] Senior Inspector Visit Date: 02/01/2022 Time: 2:42 PM Name: Shaina Bustos : 1955 Current Concerns: Pt seen for return RNCM visit Continues to have vaginal bleeding and was seen for f/u by gyne/obs There was no evidence of malignancy or polyp and Mirena IUD was recommended. Plan is for pt to have this placed under anesthesia on 02/14 Received PureWick device for urinary incontinence and has not been using it yet Pt reports "it hasnt been set up yet" reports she has been dry a lot overnight but pt disagrees Offered to help set it up and show how to use it and he did allow putrewick set up and was functioning - instructed how to change and empty device and shouldbe on for 8-12 hours overnight Physical Exam: BP 118/64 | Pulse 72 | Temp 36.6 C (97.9 F) | Resp 18 | SpO2 98% Pain 0 Physical Exam Constitutional: Appearance: She [...] Negative. HENT: Negative. Respiratory: Positive for cough (chronic - unable to tell color of mucus). Cardiovascular: Positive for leg swelling. Gastrointestinal: Negative. Genitourinary: Positive for vaginal bleeding (mild). Musculoskeletal: Positive for arthralgias and gait problem (non-ambulatory). Psychiatric/Behavioral: Negative. Medication Reconciliation: (See medication list) Does patient take medications as ordered: Yes Patient Well Being: PHQ2/9: No questionnaires available. No change in living situation Denies falls [facility]-10 Completed this Visit: No. Routine visit and No falls since last visit Advanced Care Planning: Living Will. and Healthcare POA. Patient's Goals of Care: 1. Go to son's wedding 2. Feel better Reinforcement/Education: DIABETES: -Blood sugar [...] day Svetlana lift for transfers F/U with ENT for cough and sinus issues F/U next week with POWER GENERATING PLANT OPERATOR for vaginal bleeding - get IUD placed F/U with heme/onc Home Interventions Provided: Home Intervention: Other; Evaluation Reinforced current Plan of Care, including self-management and medication regimen Patient's 'Red Flags': 1. Increased SOB 2. Change in mental status 3. bsg <80 or >300 Patient Needs to Remember: Call [facility] at with any new or worsening health concerns or problems, red flag symptoms. Referrals Needed: Other none Follow Up: Is there cellular connectivity/connectivity in the home? Yes Does the patient have internet in the home? No Patient encouraged to call the intake phone number for all urgent but not emergent issues. Is the patient new to [employer] [facility] within the last 30 days? No, Assess appropriateness for upcoming telehealth visits. Cancel telehealth visits & schedule home visit with care steam trap man(s)as indicated. Provider is in agreement with Plan of Care: Yes Scheduled to follow up with patient in 3 weeks with EMILE and 3 weeks after with RNCM. July Poe RN 02/01/2022 2:42 PM documented in this encounter Plan of Treatment Upcoming Encounters Date Type Specialty Care Team Description 02/02/2022 Hem/Onc Treatment Hematology Oncology [place], Chair 2 Hem Onc Scenery [address] [place] [address] 02/07/2022 Laboratory Laboratory Processing [facility], [facility] Mobile Home Draw [address] [facility] [place] [id number] 02/12/2022 Nurse Only Ancillary [facility], Pre Surgical Covid Testing [address] [place] [address] 02/14/2022 Hospital Encounter Surgery Concetta Khan MD [address] [place] [address] 02/14/2022 Surgery Surgery Concetta Khan MD [address] [place], [place] [id number] HYSTEROSCOPY WITH BIOPSY AND/OR POLYPECTOMY WITH OR WITHOUT D&C 02/21/2022 Laboratory Laboratory Processing [facility] Mobile Home Draw [address] [place] [address] 02/23/2022 Laboratory Laboratory [place], Lab Scenery [address] [place] [address] 02/23/2022 Hem/Onc Treatment Hematology Oncology [place], Chair 11 Hem Onc Scenery [address] [place] [address] 02/24/2022 Home Visit Family Medicine Kaylee Barakat, Community Health Lecturer In Marketing [address] [place] [address] 03/03/2022 Office Visit Gynecology Obstetrics Concetta Khan MD [address] [place], [place] [id number] 03/07/2022 Laboratory Laboratory Processing [facility] Mobile Home Draw [address] [place] [address] 03/16/2022 Hem/Onc Treatment Hematology Oncology [place], Chair 2 Hem Onc Scenery [address] [place] [address] 03/22/2022 Home Visit [facility] July Poe RN 132 [facility] [place] [address] 03/24/2022 Office Visit Pulmonary Reynaldo Marquez MD [address] [facility] [place] [id number] 04/06/2022 Laboratory Laboratory [place], Lab Scenery [address] [facility] [address] 04/06/2022 Office Visit Hematology Oncology Keith MohiniZAK [address] [place] [address] 04/06/2022 Office Visit Pharmacy Pharmacist1, [facility] [address] [place] [address] 04/06/2022 Hem/Onc Treatment Hematology Oncology [place], Chair 10 Hem Onc Scenery [address] [place] [address] 04/26/2022 Telemedicine Endocrinology Alberta Duque PA-C [address] [place] [address] 04/28/2022 Office Visit Gastroenterology Lyssa Stout CRNP 132 [facility] [place] [address] 05/05/2022 Office Visit Cardiology Quyen Canseco CRNP 132 [facility] [place] [address] 05/30/2022 Office Visit Gynecology Obstetrics Susan Jara MD [address] [place] [address] 06/24/2022 Office Visit Sleep Disorders Love Francisco DO 132 [facility] [place] [address] Scheduled Procedures Name Priority Associated Diagnoses Date/Ti [...] this encounter Implants Implanted Type Area Home Organizer Device Identifier Shelf Expiration Date Model / Serial / Lot Microtech Sure Clip Implanted:Qty: 2 on 06/03/2020 by Janis Hatch DO at OR [facility] Clip N/A: Colon 04/21/2022 [facility]-F-26-2 35-C-R / / [id number] documented as of this encounter Advance Directives Documents on File Type Date Recorded Patient Corporate Representative 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 AND HEALTH CARE POA Power of Community Engagement Representative 04/29/2021 12:00 AM TOM R OF [employer] [facility] POA Advanced Directive 04/01/2021 1:14 [...] Syed Bustos Spouse Emergency Contact Care Teams Sponge Hooker Relationship Specialty Start Date End Date Vanita Dunn MD [address] [place] [address] PCP - General Family Medicine 03/16/21 documented as of this encounter
--- OUTSIDE RECORDS SUMMARY | 2023-05-10 18:54 | External Medical Summary ---
Author Name Unknown Address Unknown Organization K0G:[facility] [address] [place] [address] Laboratory Report Ordering Provider Test Date Status JACOB CORBETT 01/24/2022 08:34:00 Final Observation Date Value Abnormality Reference (Units ) Status Nucleated erythrocytes/100 leukocytes [Ratio] in Blood by Automated count 01/24/2022 08:34:00 Final Anisocytosis [Presence] in Blood by Light microscopy 01/24/2022 08:34:00 Slight Abnormal None Seen Final Elliptocytes [Presence] in Blood by Light microscopy 01/24/2022 08:34:00 Few Abnormal None Seen Final Hypochromia [Presence] in Blood by Light microscopy 01/24/2022 08:34:00 Slight Abnormal None Seen Final Macrocytes [Presence] in Blood by Light microscopy 01/24/2022 08:34:00 Present Abnormal None Seen Final Schistocytes 01/24/2022 08:34:00 Few Abnormal None Seen Final Dacrocytes [Presence] in Blood by Light microscopy 01/24/2022 08:34:00 Few Abnormal None Seen Final Giant platelets [Presence] in Blood by Light microscopy 01/24/2022 08:34:00 Present Abnormal None Seen Final Performing Location [facility] [place] [address]
--- OUTSIDE RECORDS SUMMARY | 2023-05-10 18:54 | External Medical Summary ---
Author Name Unknown Address Unknown Organization [facility] [address] [place] [address] Laboratory Report Ordering Provider Test Date Status JACOB CORBETT 01/24/2022 08:34:00 Final Observation Date Value Abnormality Reference (Units ) Status WBC, Total 01/24/2022 08:34:00 2.60 Below low normal 4. 00-10.80 (K/uL) Final RBC 01/24/2022 08:34:00 2.66 Below low normal 3.8 5-5.15 (M/uL) Final Hemoglobin 01/24/2022 08:34:00 9.1 Below low normal 12 .0-15.3 (g/dL) Final HCT 01/24/2022 08:34:00 29.1 Below low normal 36. 0-45.2 (%) Final MCV 01/24/2022 08:34:00 109.4 Above high normal 81 .5-97.5 (fL) Final MCH 01/24/2022 08:34:00 34.2 Above high normal 27 .0-34.0 (pg) Final MCHC 01/24/2022 08:34:00 31.3 Below low normal 32. 0-36.0 (g/dL) Final RDW 01/24/2022 08:34:00 21.6 Above high normal 11 .5-15.5 (%) Final Platelets 01/24/2022 08:34:00 59 Below low normal 140 -400 (K/uL) Final MPV 01/24/2022 08:34:00 Final Performing Location [facility]ORY [facility] [address] [place] [address]
--- OUTSIDE RECORDS SUMMARY | 2023-05-10 18:54 | External Medical Summary | Summary of Care ---
Author Name Unknown Organization [place] [address] Care Team Providers Care Doweling Machine Operator Name Role Phone Vanita Dunn MD Primary Care Provid er Reason for Visit * Reason Onset Date Comments Precert Not Needed 01/21/2022 MIRENA Encounter Details Date Type Department Care Team Description 01/21/2022 Telephone Gynecology/Obstetrics [facility] [place] [address] Concetta Khan MD [address] [place] [address] Precert Not Needed (MIRENA) 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 documented as of this encounter (statuses as of 01/26/2022) Medications Medication Sig Dispensed Refills Start Date End Date Status nystatin (NYSTOP) 465194 UNIT/GM powder Apply topically to affected area 3 times a day. 60 g 1 10/16/2019 Active Dexcom G6 Stick Inserter Device Use as directed. To test blood sugars 4 times a day Dx E11.9 1 Each 0 09/14/2020 Active Dexcom G6 Transmitter Use as directed. To test blood sugars 4 times a day. Change every 90 days. Dx E11.9 1 Each 3 09/14/2020 Active OneTouch Verio In Vitro Strip (Glucose Blood) TESTING once daily 100 Strip 3 10/29/2020 Active OneTouch Delica Plus [id number] TESTING once daily 100 Each 3 10/29/2020 [...] as of this encounter (statuses as of 01/26/2022) Active Problems Problem Noted Date Food insecurity [...] as of this encounter (statuses as of 01/26/2022) Resolved Problems Problem Noted Date Resolved Date [...] pain 01/24/2012 01/17/2017 Genetic Sleep Disorder Research Other*[id number] 05/13/2011 04/07/2016 Obstructive sleep apnea 01/18/2011 12/27/19 [...] as of this encounter (statuses as of 01/26/2022) Immunizations Name Administration Dates Next Due COVID-19 [...] Miscellaneous Notes * Telephone Encounter - Marie Oscar LPN - 01/26/2022 10:52 AM EDT Tc to pt, pt expressed understanding. Advised to keep her scheduled surgery for the insertion of this. Medication name: MIRENA Clinic Stock :Yes Authorization Required: No HCPCS code(s): E0433 146[address] Location: [place] Diagnosis Code(s): Z30.09 Medical Necessity: Medicare considers these codes as non-covered benefits regardless of the diagnosis. However patienthas secondary insurance ( BSBC) and can be billed with the denial from Medicare. For secondary insurance - Covered at 100% under the Women's Health Care Reform Mandate.This includes the insertion / removal and device itself. Deductible and co-insurance does not apply. It can be bought and billed through the office. Insurance Name:MEDICARE/BCBS Per RTE/Ramirez, plan is active, no authorization is needed. Call Reference #: Per Policy * Telephone Encounter - Marie Oscar LPN - 01/21/2022 3:52 PM EDT Patient interested in getting a Mirena device-[id number] IUD , insertion code 33042 . DX (contraception code-G64671, Excessive Menses code-N920) Message sent to OBGYN Precert Team ( P [id number]) to check insurance. If not covered under medical benefits could you please check pharmacy benefits also. documented in this encounter Plan of Treatment Upcoming Encounters Date Type Specialty Care Team Description 01/27/2022 Office Visit Pharmacy [facility] [address] [place] [address] 02/01/2022 [facility] Visit [facility]oe[facility] [address] 02/02/2022 Hem/Onc Treatment Hematology Oncology [place], Chair 2 Hem Onc Scenery [address] [place] [address] 02/07/2022 Laboratory Laboratory Processing [facility] Mobile Home Draw [address] [place] [address] 02/12/2022 Nurse Only Ancillary [facility], Pre Surgical Covid Testing 400 [facility] [address] 02/14/2022 Hospital Encounter Surgery Concetta Khan MD 400 [facility] [place] [address] 02/14/2022 Surgery Surgery Concetta Khan MD [address] [place] [address] HYSTEROSCOPY WITH BIOPSY AND/OR POLYPECTOMY WITH OR WITHOUT D&C 02/21/2022 Laboratory Laboratory Processing [facility], [facility] Mobile Home Draw [address] [place] [address] 02/23/2022 Laboratory Laboratory [place], Lab Scenery [address] [place] [address] 02/23/2022 Hem/Onc Treatment Hematology Oncology [place], Chair 11 Hem Onc Scenery [address] [place] [address] 02/24/2022 Home Visit Family Medicine Kaylee Barakat, Community Health Fuselage Framer [address] [place] [address] 03/03/2022 Office Visit Gynecology Obstetrics Concetta Khan MD 400 [facility] [place] [id number] 03/07/2022 Laboratory Laboratory Processing [facility], [facility] Mobile Home Draw [address] [place] [address] 03/16/2022 Hem/Onc Treatment Hematology Oncology [place], Chair 2 Hem Onc Scenery [address] [facility] [address] 03/24/2022 Office Visit Pulmonary Reynaldo Marquez MD [address] [place] [address] 04/06/2022 Laboratory Laboratory [place], Lab Scenery [address] [place] [address] 04/06/2022 Office Visit Hematology Oncology Zelda Kirk CRNP [address] [place] [address] 04/06/2022 Hem/Onc Treatment Hematology Oncology [place], Chair 10 Hem Onc Scenery [address] [facility] [address] 04/26/2022 Telemedicine Endocrinology Alberta Duque PA-C [address] [place] [address] 04/28/2022 Office Visit Gastroenterology Lyssa Stout CRNP [address] [place] [address] 05/05/2022 Office Visit [facility]iology [facility] [place] [address] 05/30/2022 Office Visit Gynecology Obstetrics Susan Jara MD [address] [place] [phone] 06/24/2022 Office Visit Sleep Disorders Love Francisco DO [address] [place] [address] Scheduled Procedures Name Priority Associated Diagnoses Date/Ti [...] of this encounter Implants Implanted Type Area Delivery Director Device Identifier Shelf Expiration Date Model / Serial / Lot Microtech Sure Clip Implanted:Qty: 2 on 06/03/2020 by Janis Hatch DO at OR [facility] Clip N/A: Colon 04/21/2022 [facility]-F-26-2 35-C-R / / [id number] documented as of this encounter Advance Directives Documents on File Type Date Recorded Patient Particle Board Supervisor 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 WILL AND HEALTH CARE POA Power of Sales Representatives 04/29/2021 12:00 AM TOM R OF LOGISTICS MANAGER HEALTH CARE POA Advanced Directive [...] Agents on File Name Relationship Healthcare Agent [facility] p Communication Syed Bustos Spouse Emergency Contact Care Teams Doweling Machine Operator Relationship Specialty Start Date End Date Vanita Dunn MD [address] [place], [place] [phone] PCP - General Family Medicine 03/16/21 documented as of this encounter
--- OUTSIDE RECORDS SUMMARY | 2023-05-10 18:54 | External Medical Summary | Summary of Care ---
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 Details Date Type Department Care Team Description 01/21/2022 Office Visit Gynecology/Obstetrics [facility] [address] [facility] [address] Concetta Khan MD [address] [place], [place] [id number] PMB (postmenopausal bleeding)*; Iron deficiency anemia due to chronic blood loss 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 documented as of this encounter (statuses as of 01/22/2022) Medications Medication Sig Dispensed Refills Start Date End Date Status nystatin (NYSTOP) 971461 UNIT/GM powder Apply topically to affected area 3 times a day. 60 g 1 10/16/2019 Active Dexcom G6 Hurl Shaker Device Use as directed. To test blood sugars 4 times a day Dx E11.9 1 Each 0 09/14/2020 Active Dexcom G6 Transmitter Use as directed. To test blood sugars 4 times a day. Change every 90 days. Dx E11.9 1 Each 3 09/14/2020 Active OneTouch Verio In Vitro Strip (Glucose Blood) TESTING once daily 100 Strip 3 10/29/2020 Active OneTouch Delica Plus [id number] TESTING once daily 100 Each 3 10/29/2020 [...] as of this encounter (statuses as of 01/22/2022) Active Problems Problem Noted Date Food insecurity [...] as of this encounter (statuses as of 01/22/2022) Resolved Problems Problem Noted Date Resolved Date [...] pain 01/24/2012 01/17/2017 Genetic Sleep Disorder Research Other*[id number] 05/13/2011 04/07/2016 Obstructive sleep apnea 01/18/2011 12/27/19 [...] as of this encounter (statuses as of 01/22/2022) Immunizations Name Administration Dates Next Due COVID-19 [...] Sign Reading Time Taken Comments Blood Pressure 116/80 01/21/2022 3:38 PM EDT Pulse - - Temperature 36.2 C (97.2 F) 01/21/2022 3:38 PM ED T Respiratory Rate - - Oxygen Saturation - - Inhaled Oxygen Concentration - - Weight 113.4 kg (250 lb) 01/21/2022 3:38 PM EDT Height - - Body Mass Index 50.49 12/27/2021 12:58 PM EDT documented in this encounter Functional [...] Progress Notes * Concetta Khan MD - 01/22/2022 6:23 AM EDT Patient Name: Shaina Bustos Reason for Visit : Post op check (HPI): Patient is a 66-year-old who presents for follow-up on postmenopausal bleeding. Patient is accompanied by her . Patient is status post diagnostic hysteroscopy, dilation and curettage on 12/27/2021. Pathology yielded scant atrophic fragments of endometrial and endocervical tissu e. Patient states that she continues to have vaginal bleeding with passage of blood clots. Her mostrecent hemoglobin was 8.9g/dl on 01/10/2022. Past medical history: Past Medical History: Diagnosis [...] 12/27/2010 Lymphedema 03/11/2013 MEDICATION USE AGREEMENT 03/27/2012 7/17/12 Myalgia and myositis 03/27/2012 NG (nonalcoholic steatohepatitis) 05/02/2012 Neuropathy Other specified infantile cerebral palsy Oxygen dependent 04/08/2019 Primary insomnia 04/04/2019 Restrictive lung disease 12/2014 Sleep apnea CPAP Sleep apnea, obstructive Sleep disturbance 01/24/2012 Type 2 diabetes mellitus with hemoglobin A1c goal of less than 8.0% ([facility]) 09/26/2013 ICD-10 update of inactive term Past surgical history: Past Surgical History: Procedure Laterality Date BONE DEBRIDEMENT, FIRST 20 CM2 Right 04/16/2020 DEBRIDEMENT SKIN SUBCUTANEOUS TISSUE MUSCLE AND BONE performed by Josh Vazquez MD at [place] [facility] DELIVERY 04/20/1982 COLONOSCOPY 04/21/2009 repeat in 10 years COLONOSCOPY, DIAGNOSTIC (RECTUM) 10/04/2016 normal bx, repeat 10 yrs/[facility] COLONOSCOPY, DIAGNOSTIC (RECTUM) N/A 06/03/2020 internal hemorrhoids/biopsies show adenomatous polyps/recall 5 years/COLONOSCOPY FLEXIBLE PROXIMAL DIAGNOSTIC performed by Janis Hatch DO at OR [facility] COLONOSCOPY, DIAGNOSTIC (RECTUM) 03/17/2020 poor prep / [facility] DENTAL SURGERY PROCEDURE NEC wisdom teeth x 4 DILATION AND CURETTAGE (D&C) EGD, FLEXIBLE, DIAGNOSTIC 10/04/2016 gastritis/[facility] EGD, FLEXIBLE, DIAGNOSTIC 01/11/2018 eso varices, retained food, repeat 1 yr/[facility] EGD, FLEXIBLE, DIAGNOSTIC N/A 06/03/2020 severe erosive esophagitis/non-bleeding grade II esophageal varices/gastritis/biopsies show inflammatory changes/repeat 3-4 months/ESOPHAGOGASTRODUODENOSCOPY (EGD), FLEXIBLE, TRANSORAL, DIAGNOSTIC per formed by Janis Hatch DO at [facility] EGD, FLEXIBLE, DIAGNOSTIC 11/27/2019 eso varices, portal hypertensive gastropathy, gastritis / [facility] EGD, FLEXIBLE, DIAGNOSTIC N/A 08/05/2020 large amount of food in stomach/repeat 1.5 years/ESOPHAGOGASTRODUODENOSCOPY (EGD), FLEXIBLE, TRANSORAL, DIAGNOSTIC performed by Janis Hatch DO at [facility] EGD, FLEXIBLE, DIAGNOSTIC N/A 03/10/2021 ESOPHAGOGASTRODUODENOSCOPY (EGD), FLEXIBLE, TRANSORAL, DIAGNOSTIC performed by Kris Blankenship MD at [place] HYSTEROSCOPY W/BIOPSY AND/OR POLYPECTOMY W/WO D&C N/A 12/27/2021 HYSTEROSCOPY WITH BIOPSY AND/OR POLYPECTOMY WITH OR WITHOUT D&C performed by Concetta Khan MD at OR [facility] IR VENOUS ACCESS MEDIPORT 10/05/2020 PELVIS/HIP JOINT SURGERY NEC teenager aid in walking REMOVE CERVIX CONE W/LOOP ELECTRODE N/A 12/27/2021 LOOP ELECTROSURGERY EXCISION PROCEDURE performed by Concetta Khan MD at OR [facility] REPAIR/GRAFT ACHILLES TENDON age [...] Age of Onset Heart Disorder Father of [place] at age 61 Diabetes Father Heart Disorder Mother of [place] age 72 Heart Disorder Sister Mi at [...] orders placed or performed in visit on 01/10/22 FERRITIN Result Value Ref Range Ferritin 113 13 - 150 ng/mL IRON SCREEN, INCLUDING TIBC Result Value Ref Range Iron 49 33 - 151 ug/dL Iron Binding Capacity 268 250 - 425 ug/dL Transferrin Saturation Percent 18 15 - 55 % CBC Result Value Ref Range WBC 3.36 (L) 4.00 - 10.80 K/uL RBC 2.66 (L) 3.85 - 5.15 M/uL HGB 8.9 (L) 12.0 - 15.3 g/dL HCT 28.2 (L) 36.0 - 45.2 % MCV 106.0 (H) 81.5 - 97.5 fL MCH 33.5 27.0 - 34.0 pg MCHC 31.6 (L) 32.0 - 36.0 g/dL RDW 23.5 (H) 11.5 - 15.5 % PLT 59 (L) 140 - 400 K/uL MPV DIFFERENTIAL, AUTOMATED Result Value Ref Range WBC 3.36 (L) 4.00 - 10.80 K/uL Neutrophils % 48.0 40.0 - 75.0 % Lymphocytes % 23.2 18.0 - 42.0 % Monocytes % 19.6 (H) 1.0 - 11.0 % Eosinophils % 8.6 (H) 0.0 - 6.0 % Basophils % 0.6 0.0 - 2.0 % Absolute Neutrophils 1.61 (L) 1.80 - 7.70 K/uL Absolute Lymphocytes 0.78 (L) 1.00 - 4.80 K/ul Absolute Monocytes 0.66 0.00 - 1.10 K/uL Absolute Eosinophils 0.29 0.00 - 0.70 K/uL Absolute Basophils 0.02 0.00 - 0.20 K/uL DIFFERENTIAL, TECHNOLOGIST REVIEW Result Value Ref Range nRBCs Anisocytosis Moderate (A) None Seen Elliptocytes Few (A) None Seen Hypochromia Slight (A) None Seen Macrocytosis Present (A) None Seen Schistocytes Few (A) None Seen Tear Drop Cells Few (A) None Seen Large PLTs Present (A) None Seen *Note: Due to a large number of results and/or encounters for the requested time period, some results have not been displayed. A complete set of results can be found in Results Review. EXAM ULTRASOUND PELVIS, TRANSABDOMINAL AND ENDOVAGINAL - 10/19/2021 HISTORY Postmenopausal bleeding COMPARISON CT ABD/PELVIS WO IV/ORAL CONTRAST dated 06/16/2021; XR ABDOMEN OBSTRUCT SERIES W CHEST 1 VIEW dated 02/09/2021 TECHNIQUE Transabdominal and endovaginal scanning was performed. FINDINGS LMP: Postmenopausal Transabdominal scanning was performed. The uterus measures 8.0 x 3.4 x 4.3 cm. There is fluid in the cervical canal, likely blood products. The ovaries are not seen. There is no significant fluid in the cul-de-sac. Endovaginal scanning was done for further evaluation. The myometrium is heterogenous. The stripe measures 4 mm. It appears heterogenous. The right ovary measures 1.9 x 2.2 x 1.9 cm. The left ovary measures 1.8 x 1.4 x 1.8 cm. There are bilateral subcentimeter cysts. There is no significant free fluid. PHYSICAL EXAMINATION Vital signs Filed Vitals: 01/21/22 1538 BP: 116/80 Temp: 36.2 C (97.2 F) Weight: 113.4 kg (250 lb) Well developed. Well nourished white female in no acute distress Psych: Alert, awake and oriented X 3. Normal gait A/P (N95.0) PMB (postmenopausal bleeding) (primary encounter diagnosis) Plan: Patient was reassured that there was no evidence of malignancy or polyp. I recommended the Mirena IUD. The patient was given a Mirena IUD brochure. Patient states that she prefers to have the Mirena IUD inserted under anaesthesia. (D50.0) Iron deficiency anemia due to chronic blood loss Plan: The patient is receiving IV iron infusions Concetta Khan MD documented in this encounter Nursing Notes * Pham Chavez LPN - 01/21/2022 3:39 PM EDT Pt presents for f/u regarding PMB. Pham Chavez LPN documented in this encounter Plan of Treatment Upcoming Encounters Date Type Specialty Care Team Description 01/24/2022 Laboratory Laboratory Processing [facility], [facility] Mobile Home Draw [address] [place] [address] 01/27/2022 Office Visit Pharmacy [place], [facility] [address] [place] [address] 02/01/2022 [facility] Visit [facility] [place] July Poe RN [address] [place] [address] 02/02/2022 Hem/Onc Treatment Hematology [place], Chair 2 Hem Onc Scenery [address] [place] [address] 02/07/2022 Laboratory Laboratory Processing [facility], [facility] Mobile Home Draw [address] [place] [address] 02/21/2022 Laboratory Laboratory Processing [facility], [facility] Mobile Home Draw [address] [place] [address] 02/23/2022 Laboratory Laboratory [place], Lab Scenery [address] [place] [address] 02/23/2022 Hem/Onc Treatment Hematology Oncology [place], Chair 11 Hem Onc Scenery [address] [place] [address] 02/24/2022 Home Visit Family Medicine Kaylee Barakat, Community Health Supervisor [employer] [address] [place] [address] 03/07/2022 Laboratory Laboratory Processing [facility], [facility] Mobile Home Draw [address] [place] [address] 03/16/2022 Hem/Onc Treatment Hematology [place], Chair 2 Hem Onc Scenery [address] [place] [address] 03/24/2022 Office Visit Reynaldo Marks MD [address] [place] [address] 04/06/2022 Laboratory Laboratory [place], Lab Scenery [address] [place] [address] 04/06/2022 Office Visit Hematology Oncology Yelena Zelda CardonaZAK [address] [place] [address] 04/06/2022 Hem/Onc Treatment Hematology [place], Chair 10 Hem Onc Scenery [address] [place], [place] [address] 04/26/2022 Telemedicine Endocrinology Alberta Duque PA-C [address] [place] [address] 04/28/2022 Office Visit Gastroenterology Lyssa Stout CRNP [address] [facility] [place] [address] 05/05/2022 Office Visit Cardiology Quyen Canseco CRNP [address] [facility] [place] [address] 05/30/2022 Office Visit Gynecology Obstetrics Susan Jara MD [address] [place], [place] [address] [address] 06/24/2022 Office Visit Sleep Disorders Love Francisco DO [address] [facility] [place] [address] Scheduled Procedures Name Priority Associated Diagnoses Date/Ti me ESOPHAGOGASTRODUODENOSCOPY ( EGD), FLEXIBLE, TRANSORAL, DIAGNOSTIC Recall Esophagitis COLONOSCOPY FLEXIBLE PROXIMAL DIAGNOSTIC Recall History of colonic polyps Health Maintenance Due Date Last Done Comments DIABETES-EYE EXAM 06/12/2019 06/12/2018, , 06/12/2018, Additional history exists DIABETES-URINE ALBUMIN/CREATININE EVERY 12 MONTHS 01/12/2020 01/11/2019, 02/03/2017, 08/25/2015, Additional history exists Dexa Scan 2020 Pneumococcal Vaccine: 65+ Years (2 of 2 - PPSV23) 2020 05/02/2019, 06/01/2010 Zoster Vaccines (3 of 3) 06/23/2020 04/28/2020, 11/11 Depression Screening, Annual for Pts 12 and Over 07/27/2021 07/27/2020, 12/09/2015, 10/20/2014 *URINE ALBUMIN/CREATININE RATIO ONCE FOR HTN 01/14/2022 DIABETES-HGBA1C EVERY 6 MONTHS 02/17/2022 08/19/2021, 06/10/2021, 03/08/2021, Additional history exists DIABETES-FOOT EXAM 04/05/2022 04/05/2021, 0 11/06/2019, 01/09/2019, Additional history exists TSH FOR THYROID MEDICATION MONITORING YEARLY 06/10/2022 06/10/2021, 04/05/2021, 02/04/2021, Additional history exists Yearly B-12 07/06/2022 07/06/2021, 03/12, 03/21/2021, Additional history exists BREAST CANCER SCREENING DISCUSSION [...] of this encounter Implants Implanted Type Area Dairy Feed Sales Consultant Device Identifier Shelf Expiration Date Model / Serial / Lot Microtech Sure Clip Implanted:Qty: 2 on 06/03/2020 by Janis Hatch DO at OR [facility] Clip N/A: Colon 04/21/2022 [facility]-F-26-2 35-C-R / / [id number] documented as of this encounter Visit Diagnoses Diagnosis PMB (postmenopausal bleeding)- Primary Postmenopausal bleeding 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 (chronic) documented in this encounter Advance Directives Documents on File Type Date Recorded 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
--- OUTSIDE RECORDS SUMMARY | 2023-05-10 18:54 | External Medical Summary ---
Author Name Unknown Address Unknown Organization [id number]:[facility]ORY [facility] - [address] [place] [address] Laboratory Report Ordering Provider Test Date Status JACOB CORBETT 01/24/2022 08:34:00 Final Observation Date Value Abnormality Reference (Units ) Status Iron 01/24/2022 08:34:00 75 33-151 (ug /dL) Final Iron-binding capacity 01/24/2022 08:34:00 265 250-425 (ug/dL) Final Transferrin Sat % 01/24/2022 08:34:00 28 15 -55 (%) Final Performing Location [facility] - [address] [place] [address]
--- OUTSIDE RECORDS SUMMARY | 2023-05-10 18:54 | External Medical Summary ---
Author Name Unknown Address Unknown Organization [id number]:[facility]ATORY [facility] [address] - [address] [place] [address] Laboratory Report Ordering Provider Test Date Status JACOB CORBETT 01/24/2022 08:34:00 Final Observation Date Value Abnormality Reference (Units ) Status SYNC LEUKOCYTES IN BLOOD BY AUTOMATED COUNT 01/24/2022 08:34:00 2.60 Below low normal 4.00-10.80 (K/uL) Final Segs 01/24/2022 08:34:00 46.8 40.0-75.0 (%) Final Lymphs % 01/24/2022 08:34:00 28.5 18.0-42.0 (%) Final Monos 01/24/2022 08:34:00 13.5 Above high normal 1.0-11.0 (%) Final Eosinophils 01/24/2022 08:34:00 10.0 Above high normal 0.0-6.0 (%) Final Basos 01/24/2022 08:34:00 1.2 0.0-2.0 (%) Final Absolute Segs 01/24/2022 08:34:00 1.22 Below low normal 1.80-7.70 (K/uL) Final Lymphs, absolute 01/24/2022 08:34:00 0.74 Below low normal 1.00-4.80 (K/ul) Final Monos, Abs 01/24/2022 08:34:00 0.35 0.00-1.10 (K/uL) Final Eos, Abs 01/24/2022 08:34:00 0.26 0.00-0.70 (K/uL) Final Basos, Abs 01/24/2022 08:34:00 0.03 0.00-0.20 (K/uL) Final Performing Location LABORATORY [facility] [address] - [address] [place] [address]
--- OUTSIDE RECORDS SUMMARY | 2023-05-10 18:54 | External Medical Summary ---
Author Name Unknown Address Unknown Organization [id number]:LABORATORY [facility] [place] - [address] [place] [address] Laboratory Report Ordering Provider Test Date Status VICKY HUGHES 01/24/2022 08:34:00 Final Observation Date Value Abnormality Reference (Units ) Status HbA1C 01/24/2022 08:34:00 6.9 Above high normal 4. 0-5.6 (%) Final Performing Location LABORATORY [facility] - [address] [place] [address]
--- OUTSIDE RECORDS SUMMARY | 2023-05-10 18:54 | External Medical Summary ---
Author Name Unknown Address Unknown Organization K01:LABORATORY [facility] - [address] [place] [address] Laboratory Report Ordering Provider Test Date Status JACOB CORBETT 01/24/2022 08:34:00 Final Observation Date Value Abnormality Reference (Units ) Status Ferritin 01/24/2022 08:34:00 101 13-150 (ng /mL) Final Performing Location LAB[facility]ATORY [facility] - [address] [place] [address]
--- OUTSIDE RECORDS SUMMARY | 2023-05-10 18:55 | External Medical Summary | Summary of Care ---
Author Name Unknown Organization [place] [address] Care Team Providers Care Furniture Removalist Name Role Phone Kojo Dunn MD Primary Care Provid er Reason for Visit * Reason Comments eRx-Medication Refill Encounter Details Date Type Department Care Team Description 01/17/[address] [facility] [address] [place] [address] Kojo Dunn MD [address] [place] [address] HTN, goal below 140/90 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 documented as of this encounter (statuses as of 01/18/2022) Medications Medication Sig Dispensed Refills Start Date End Date Status nystatin (NYSTOP) 156640 UNIT/GM powder Apply topically to affected area 3 times a day. 60 g 1 0 Active Dexcom G6 Chairman Device Use as directed. To test blood sugars 4 times a day Dx E11.9 1 Each 0 1 Active Dexcom G6 Transmitter Use as directed. To test blood sugars 4 times a day. Change every 90 days. Dx E11.9 1 Each 3 1 Active OneTouch Verio In Vitro Strip (Glucose Blood) TESTING once daily 100 Strip 3 1 Active OneTouch Delica Plus [id number] TESTING once daily 100 Each 3 1 [...] 36 Units before supper 0 1 Active Trulicity 4.5 MG/0.5ML Subcutaneous Solution Pen-injector (Dulaglutide)Indica tions:Type 2 diabetes mellitus with hemoglobin A1c goal of less than 7.0% (HCC) Inject one pen (4.5 mg) under the skin once weekly 6 mL 3 1 Active Docusate Sodium 100 MG Oral [...] TIMES DAILY. 400 Each 3 1 Active Isosorbide Mononitrate ER 30 MG Oral Tablet Extended Release 24 Hour (Imdur) TAKE 1 TABLET BY MOUTH ONCE DAILY 30 Tablet 5 1 Active Aspirin 81 MG Oral Tablet Chewable CHEW AND SWALLOW 1 TABLET BY MOUTH ONCE DAILY 30 Tablet 5 1 Active Atorvastatin Calcium 80 MG Oral Tablet (Lipitor) TAKE 1 TABLET BY MOUTH AT BEDTIME 30 Tablet 5 1 Active Lactulose 10 GM/15ML Oral Solution (Constulose) Take 30mL by mouth twice daily, titrate dose for effect of 3-5 bowel movements daily 240 mL 3 2 Active Benzonatate 100 MG Oral Capsule (Tessalon [...] twice daily 22 g 0 2 Active Furosemide 20 MG Oral Tablet (Lasix) TAKE 1 TABLET BY MOUTH DAILY NEEDED FOR LOWER EXTREMITY SWELLING 90 Tablet 0 2 Active Lantus SoloStar 100 UNIT/ML [...] ONCE DAILY 90 Tablet 1 2 Active Nadolol 40 MG Oral Tablet (Corgard)Indication s:HTN, goal below 140/90 TAKE 1 TABLET BY MOUTH ONCE DAILY 90 Tablet 0 2 01/19/20 22 Discontinued documented as of this encounter (statuses as of 01/18/2022) Active Problems Problem Noted Date Food insecurity 09/20/2021 Overview: Per [facility] Protocol Chronic diastolic (congestive) heart [...] as of this encounter (statuses as of 01/18/2022) Resolved Problems Problem Noted Date Resolved Date [...] pain 01/24/2012 01/17/2017 Genetic Sleep Disorder Research Other*[id number] 05/13/2011 04/07/2016 Obstructive sleep apnea 01/18/2011 12/27/19 [...] as of this encounter (statuses as of 01/18/2022) Immunizations Name Administration Dates Next Due COVID-19 [...] encounter Miscellaneous Notes * Telephone Encounter - Jean Marie Garcia RPh - 01/18/2022 10:10 AM EDT Signed Prescriptions: Disp Refills Nadolol 40 MG Oral Tablet (Corgard) 90 Tab*1 Sig: TAKE 1 TABLET BY MOUTH ONCE DAILYAuthorizing Provider: KOJO DUNN User: JEAN MARIE GARCIA N documented in this encounter Plan of Treatment Upcoming Encounters Date Type Specialty Care Team Description 01/21/2022 Office Visit [facility]necology [facility]st[facility] [address] [facility] [place] [address] 01/24/2022 Laboratory Laboratory Processing [facility], [facility] Mobile Home Draw [address], [place] [id number] 01/27/2022 Office Visit Pharmacy [facility] [address], [place] [id number] 02/01/2022 [facility] [address] [facility] [address] 02/02/2022 Hem/Onc Treatment Hematology [place], Chair 2 Hem Onc Scenery [address] [place] [address] 02/07/2022 Laboratory Laboratory Processing [facility] Mobile Home Draw [address] [place] [address] 02/21/2022 Laboratory Laboratory Processing [facility] Mobile Home Draw [address] [place] [address] 02/23/2022 Laboratory Laboratory [place], Lab Scenery [address] [place] [address] 02/23/2022 Hem/Onc Treatment Hematology Oncology [place], Chair 11 Hem Onc Scenery [address] [place] [address] 02/24/2022 Home Visit Family Medicine Kaylee Barakat, Community Health Dining Chair Seat Cushion Trimmer [address] [place] [address] 03/07/2022 Laboratory Laboratory Processing [facility] Mobile Home Draw [address] [place] [address] 03/16/2022 Hem/Onc Treatment Hematology [place], Chair [address] Hem Onc Scenery [address] [place] [address] 03/24/2022 Office Visit Pulmonary Reynaldo Marquez MD [address] [place] [address] 04/06/2022 Laboratory Laboratory [place], Lab Scenery [address] [place] [address] 04/06/2022 Office Visit Hematology Oncology Zelda Kirk CRNP [address] [place], [place] [address] 04/06/2022 Hem/Onc Treatment Hematology [place], Chair 10 Hem Onc Scenery [address] [place] [address] 04/26/2022 Telemedicine Endocrinology Alberta Duque PA-C [address] [place] [address] 04/28/2022 Office Visit Gastroenterology Lyssa Stout CRNP [address] [facility] [place] [address] 05/05/2022 Office Visit Cardiology Quyen Canseco CRNP [address] [facility] [place] [address] 05/30/2022 Office Visit Gynecology Obstetrics Susan Jara MD [address] [place] [address] 06/24/2022 Office Visit Sleep Disorders Love Francisco DO [address] [facility] [place] [address] Scheduled Procedures Name Priority Associated Diagnoses Date/Ti [...] of this encounter Implants Implanted Type Area Critical Power Technician Device Identifier Shelf Expiration Date Model / Serial / Lot Microtech Sure Clip Implanted:Qty: 2 on 06/03/2020 by Janis Hatch DO at OR [facility] Clip N/A: Colon 04/21/2022 [facility]-F-26-2 35-C-R / / [id number] documented as of this encounter Visit Diagnoses Diagnosis HTN, goal below 140/90 Unspecified essential hypertension documented in this encounter Advance Directives Documents on File Type Date Recorded Patient Steel Fabricator 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 WILL AND HEALTH CARE POA Power of Compounder Helper 04/29/2021 12:00 AM TOM R [facility] POA Advanced Directive 04/01/2021 1:14 [...] Syed Bustos Spouse Emergency Contact Care Teams Furniture Removalist Relationship Specialty Start Date End Date Kojo Dunn MD [address] [place] [address] PCP - General Family Medicine 03/16/21 documented as of this encounter
--- OUTSIDE RECORDS SUMMARY | 2023-05-10 18:55 | External Medical Summary | Summary of Care ---
Author Name Unknown Organization [facility] Address [place] [address] Care Team Providers Care Bobbin Disker Name Role Phone Kojo Dunn MD Primary Care Provid er Reason for Visit * Reason Comments eRx-Medication Refill Encounter Details Date Type Department Care Team Description 01/14/2022 Refill [facility] [address] [place] [address] Kojo Dunn MD [address] [place] [address] Recurrent major depressive disorder, in partial remission ([facility]) 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 documented as of this encounter (statuses as of 01/16/2022) Medications Medication Sig Dispensed Refills Start Date End Date Status nystatin (NYSTOP) 549639 UNIT/GM powder Apply topically to affected area 3 times a day. 60 g 1 0 Active Dexcom G6 Edge Trimmer Mechanic Device Use as directed. To test blood sugars 4 times a day Dx E11.9 1 Each 0 1 Active Dexcom G6 Transmitter Use as directed. To test blood sugars 4 times a day. Change every 90 days. Dx E11.9 1 Each 3 1 Active OneTouch Verio In Vitro Strip (Glucose Blood) TESTING once daily 100 Strip 3 1 Active OneTouch Delica Plus [id number] TESTING once daily 100 Each 3 1 [...] of less than 7.0% ([facility]) USE TO INJECT INSULIN FOUR [...] TWICE DAILY 180 Tablet 1 2 Active Nadolol 40 MG Oral Tablet (Corgard)Indication s:HTN, goal below 140/90 TAKE 1 TABLET BY MOUTH ONCE DAILY 90 Tablet 0 2 Active Mupirocin [...] MOUTH DAILY 90 Tablet 3 2 Active Escitalopram Oxalate 20 MG Oral Tablet (Lexapro)Indication s:Recurrent major depressive disorder, in partial remission (HCC) TAKE 1 TABLET BY MOUTH ONCE DAILY 90 Tablet 1 1 01/17/20 22 Discontinued documented as of this encounter (statuses as of 01/16/2022) Active Problems Problem Noted Date Food insecurity [...] as of this encounter (statuses as of 01/16/2022) Resolved Problems Problem Noted Date Resolved Date [...] pain 01/24/2012 01/17/2017 Genetic Sleep Disorder Research Other*[id number] 05/13/2011 04/07/2016 Obstructive sleep apnea 01/18/2011 12/27/19 [...] as of this encounter (statuses as of 01/16/2022) Immunizations Name Administration Dates Next Due COVID-19 [...] encounter Miscellaneous Notes * Telephone Encounter - Radha Turner RP - 01/16/2022 6:23 AM EDT Signed Prescriptions: Disp Refills Escitalopram Oxalate 20 MG Oral Tablet (Le*90 Tab*3 Sig: TAKE 1 TABLET BY MOUTH DAILYAuthorizing Provider: KOJO DUNN User: RADHA TURNER NN documented in this encounter Plan of Treatment Upcoming Encounters Date Type Specialty Care Team Description 01/21/2022 Office [facility] [phone] 01/24/2022 Laboratory Laboratory [facility] [address] [place] [address] 01/27/2022 Office Visit Pharmacy [facility] [address] [place], [place] [phone] 02/01/2022 [facility] July Poe [facility] [address] [place] [facility] [address] 02/02/2022 Hem/Onc Treatment Hematology [place]cology [place], Chair 2 Hem Onc Scenery [address] [facility] [address] 02/07/2022 Laboratory Laboratory Processing [facility] [address] [place] [address] 02/21/2022 Laboratory Laboratory Processing [facility] [address] [place] [address] 02/23/2022 Laboratory Laboratory [place], Lab Scenery [address] [facility] [address] 02/23/2022 Hem/Onc Treatment Hematology [place]cology [place], Chair 11 Hem Onc Scenery [address] [place] [address] 02/24/2022 Home Visit Family [facility] Kaylee Barakat, Community Health Technology Applications Teacher [address] [place] [address] 03/07/2022 Laboratory Laboratory Processing [facility] [address] [place] [address] 03/16/2022 Hem/Onc Treatment Hematology [place]cology [place], Chair 2 Hem Onc Scenery [address] [place] [address] 03/24/2022 Office Visit Reynaldo Marks MD [address] [place] [phone] 04/06/2022 Laboratory Laboratory [place], Lab Scenery [address] [place] [address] 04/06/2022 Office Visit Hematology Oncology Zelda KirkZAK [address] [place], [place] [address] 04/06/2022 Hem/Onc Treatment Hematology [place]cology [place], Chair 10 Hem Onc Scenery [address] [place], [place] [address] 04/26/2022 Telemedicine Endocrinology Alberta Duque PA-C [address] [place] [address] 04/28/2022 Office Visit Gastroenterology Lyssa Stout CRNP 132 [facility] [place] [address] 05/05/2022 Office Visit Cardiology Quyen Canseco CRNP [address] [facility] [place] [address] 05/30/2022 Office Visit Gynecology Obstetrics Susan Jara MD [address] [place] [address] 06/24/2022 Office Visit Sleep Disorders Love Francisco DO 132 [facility] [place] [address] Scheduled Procedures Name Priority Associated Diagnoses Date/Ti [...] of this encounter Implants Implanted Type Area Assistant Manager Airside Operations Device Identifier Shelf Expiration Date Model / Serial / Lot Microtech Sure Clip Implanted:Qty: 2 on 06/03/2020 by Janis Hatch DO at OR [facility] Clip N/A: Colon 04/21/2022 [id number]-F-[id number] 35-C-R / / [id number] documented as of this encounter Visit Diagnoses Diagnosis Recurrent major depressive disorder, in partial remission (HCC) documented in this encounter Advance Directives Documents on File Type Date Recorded Patient Cook Helper Juice 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 LIVING WILL AND HEALTH CARE POA Power [employer] 04/29/2021 12:00 AM TOM R eduFire [facility] POA Advanced Directive 04/01/2021 1:14 [...] Name Relationship Healthcare Agent [facility] Communication Syed Bustos Spouse Emergency Contact Care Teams Bobbin Disker Relationship Specialty Start Date End Date Kojo Dunn MD [address] [place] [address] PCP - General Family Medicine 03/16/21 documented as of this encounter
--- OUTSIDE RECORDS SUMMARY | 2023-05-10 18:55 | External Medical Summary | Summary of Care ---
Author Name Unknown Organization [place] [address] Care Team Providers Care Barge Worker Name Role Phone Vanita Dunn MD Primary Care Provid er Reason for Visit * Reason Comments eRx-Medication Refill Encounter Details Date Type Department Care Team Description 01/14/2022 Refill Cardiology, [facility] 132 [facility] [place] [phone] Drew Retana MD 132 [facility] [place] [address] 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 documented as of this encounter (statuses as of 01/14/2022) Medications Medication Sig Dispensed Refills Start Date End Date Status nystatin (NYSTOP) 829815 UNIT/GM powder Apply topically to affected area 3 times a day. 60 g 1 0 Active Dexcom G6 Air Traffic Control Equipment Repairer Device Use as directed. To test blood sugars 4 times a day Dx E11.9 1 Each 0 1 Active Dexcom G6 Transmitter Use as directed. To test blood sugars 4 times a day. Change every 90 days. Dx E11.9 1 Each 3 1 Active OneTouch Verio In Vitro Strip (Glucose Blood) TESTING once daily 100 Strip 3 1 Active OneTouch Delica Plus [id number] TESTING once daily 100 Each 3 1 [...] BEFORE BREAKFAST 90 Capsule 1 1 Active Escitalopram Oxalate 20 MG Oral Tablet (Lexapro)Indication s:Recurrent major depressive disorder, in partial remission (HCC) TAKE 1 TABLET BY MOUTH ONCE DAILY 90 Tablet 1 1 Active BD Pen Needle Mini [...] ONCE DAILY 60 Tablet 3 2 Active Spironolactone 25 MG Oral Tablet (Aldactone) TAKE 2 TABLETS BY MOUTH DAILY 60 Tablet 0 2 01/15/20 22 Discontinued documented as of this encounter (statuses as of 01/14/2022) Active Problems Problem Noted Date Food insecurity 09/20/2021 Overview: Per [facility] Protocol Chronic diastolic (congestive) heart [...] as of this encounter (statuses as of 01/14/2022) Resolved Problems Problem Noted Date Resolved Date [...] pain 01/24/2012 01/17/2017 Genetic Sleep Disorder Research Other*[id number] 05/13/2011 04/07/2016 Obstructive sleep apnea 01/18/2011 12/27/19 [...] as of this encounter (statuses as of 01/14/2022) Immunizations Name Administration Dates Next Due COVID-19 [...] Telephone Encounter - Drew Retana MD - 01/14/2022 12:24 PM EDT Signed Prescriptions: Disp Refills Spironolactone 25 MG Oral Tablet ([place]acton*60 Tab*3 Sig: TAKE 2 TABLETS BY MOUTH ONCE DAILY Authorizing Provider: DREW RETANA * Telephone Encounter - Neftali Kirk RN - 01/14/2022 9:07 AM EDT Pending Prescriptions: Disp Refills Spironolactone 25 MG Oral Tablet (Aldacto*60 Tab*3 Sig: TAKE 2 TABLETS BY MOUTH ONCE DAILY * Telephone Encounter - Neftali Kirk RN - 01/14/2022 9:06 AM EDT Pending Prescriptions: Disp Refills Spironolactone 25 MG Oral Tablet (Aldacto*60 Tab*3 Sig: TAKE 2 TABLETS BY MOUTH ONCE DAILY Last Visit: 11/04/2021 (in office), Visit date not found (telemedicine) Next Visit: 05/05/2022 Last medication order date: 12/16/2021 Have you choosen a preferred pharm?? yes Patient Active Problem List Diagnosis Code Venous insufficiency I87.2 Spinal stenosis of lumbar region without neurogenic claudication M48.061 Cerebral palsy (HCC) G80.9 HTN, goal below 130/80 I10 NG (nonalcoholic steatohepatitis) K75.81 Venous stasis dermatitis of both lower extremities I87.2 DDD (degenerative disc disease), lumbar M51.36 Lymphedema I89.0 Type 2 diabetes mellitus with hemoglobin A1c goal of less than 8.0% ([facility]) E11.9 Vitamin D deficiency E55.9 Restrictive lung disease J98.4 Obesity, morbid (more than 100 lbs over ideal weight or BMI > 40) ([facility]) E66.01 Dyslipidemia E78.5 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 R39.81 Acquired hypothyroidism E03.9 Chronic pain syndrome G89.4 MEDICATION USE AGREEMENT [id number] Cirrhosis of liver ([facility]) K74.60 THAD on CPAP G47.33, Z99.89 Wheelchair dependent Z99.3 DM type 2 with diabetic peripheral neuropathy ([facility]) E11.42 Primary insomnia F51.01 Recurrent major depressive disorder, in partial remission ([facility]) F33.41 Impaired mobility and ADLs Z74.09, Z78.9 Gastroesophageal reflux disease K21.9 Fibromyalgia M79.7 Thrombocytopenia ([facility]) D69.6 Iron deficiency anemia due to chronic blood loss D50.0 Esophageal varices ([facility]) I85.00 Portal hypertensive gastropathy ([facility]) K76.6, K31.89 Chronic diastolic (congestive) heart failure ([facility]) I50.32 Food insecurity Z59.41 Labs: Lab Results Component Value Date/Time CREATININE - [facility] 0.7 12/20/2021 02:48 PM CREATININE - [facility] 0.6 09/24/2020 05:16 PM CREATININE, RANDOM URINE - [facility] 115 01/11/2019 01:29 PM CREATININE-OUTSIDE LAB 0.72 12/18/2021 12:00 AM Lab Results Component Value Date/Time POTASSIUM - [facility] 4.3 12/20/2021 02:48 PM POTASSIUM - [facility] 4.0 09/24/2020 05:16 PM POTASSIUM-OUTSIDE LAB 4.3 12/18/2021 12:00 AM Lab Results Component Value Date/Time TSH - [facility] 0.02 (L) 06/10/2021 02:45 [...] Results Component Value Date/Time ALT - [facility] 25 12/20/2021 02:48 PM ALT - [facility] 23 08/21/2020 04:35 PM ALTERNARIA IGE - [facility] <0.20 08/19/2021 04:18 PM Hemoglobin AIC Results: Lab Results Component Value Date/Time HEMOGLOBIN A1C - [facility] 7.1 (H) 08/19/2021 04:19 PM HEMOGLOBIN A1C - [facility] 7.4 (H) 06/10/2021 02:45 PM HEMOGLOBIN A1C - [facility] 8.5 (H) 03/08/2021 03:40 AM HEMOGLOBIN A1C - [facility] 9.9 (H) 07/06/2020 05:24 AM HEMOGLOBIN A1C - [facility] 11.0 (H) 05/26/2020 04:44 AM HEMOGLOBIN A1C - [facility] 9.9 (H) 04/28/2020 04:37 PM documented in this encounter Plan of Treatment Upcoming Encounters Date Type Specialty Care Team Description 01/21/2022 Office Visit Gynecology Obstetrics [facility] [address] [facility] [phone] 01/24/2022 Laboratory Laboratory Processing [facility] Draw [address] [place] [facility] [address] 01/27/2022 Office Visit [facility] [address] [place] [address] 02/01/2022 Home Visit [facility] July Poe, RN [address] [place] [address] 02/02/2022 Hem/Onc Treatment Hematology Oncology [place], Chair 2 Hem Onc Scenery [address] [place] [address] 02/07/2022 Laboratory Laboratory Processing [facility] Draw [address] [place], [place] [phone] 02/21/2022 Laboratory Laboratory Processing [facility] Draw [address] [place] [address] 02/23/2022 Laboratory Laboratory [place], Lab Scenery [address] [place], [place] [address] 02/23/2022 Hem/Onc Treatment Hematology Oncology [place], Chair 11 Hem Onc Scenery [address] [place] [address] 02/24/2022 Home Visit Family Medicine Kaylee Barakat, Community Health Subway Train Driver [address] [place] [address] 03/07/2022 Laboratory Laboratory Processing [facility] Draw [address] [place] [address] 03/16/2022 Hem/Onc Treatment Hematology Oncology [place], Chair 2 Hem Onc Scenery [address] [place] [address] 03/24/2022 Office Visit Pulmonary Reynaldo Marquez MD [address] [place] [address] 04/06/2022 Laboratory Laboratory [place], Lab Scenery [address] [facility] [address] 04/06/2022 Office Visit Hematology Oncology [place] Zelda CardonaZAK [address] [place] [address] 04/06/2022 Hem/Onc Treatment Hematology Oncology [place], Chair 10 Hem Onc Scenery [address] [place] [address] 04/26/2022 Telemedicine Endocrinology Alberta Duque PA-C [address] [place] [address] 04/28/2022 Office Visit Gastroenterology Lyssa Stout CRNP [address] [facility] [place] [address] 05/05/2022 Office Visit Cardiology Quyen Canseco CRNP [address] [facility] [place] [address] 05/30/2022 Office Visit Gynecology Obstetrics Susan Jara MD [address] [place] [address] [place] [address] 06/24/2022 Office Visit [facility] Disorders Love Francisco DO [facility] [place] [address] Scheduled Procedures Name Priority Associated Diagnoses Date/Ti [...] of this encounter Implants Implanted Type Area Leather Goods Assembler Device Identifier Shelf Expiration Date Model / Serial / Lot [employer] Sure Clip Implanted:Qty: 2 on 06/03/2020 by Janis Hatch DO at OR [facility] Clip N/A: Colon 04/21/2022 [facility]-F-[id number] 35-C-R / / [id number] documented as of this encounter Advance Directives Documents on File Type Date Recorded Patient Esthetician/Skin Therapist 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 AND HEALTH CARE POA Power of Parts Salesperson 04/29/2021 12:00 AM TOM R OF [facility] CARE POA Advanced Directive 04/01/2021 [...] Syed Bustos Spouse Emergency Contact Care Teams Barge Worker Relationship Specialty Start Date End Date Vanita Dunn MD [address] [facility] [place] [phone] PCP - General Family Medicine 03/16/21 documented as of this encounter
--- OUTSIDE RECORDS SUMMARY | 2023-05-10 18:56 | External Medical Summary | Summary of Care ---
Author Name Unknown Organization [place] [address] Care Team Providers Care Waste Chopper Name Role Phone Vanita Dunn MD Primary Care Provid er Reason for Visit * Reason Comments IV Therapy Venofer Encounter Details Date Type Department Care Team Description 01/12/2022 Hem/Onc Treatment Hematology/Oncology Treatment, [place] [address] [place] [address] [place], Chair 7 Hem Onc Scenery [address] [facility] [place] [address] Iron deficiency anemia due to chronic blood loss* 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 documented as of this encounter (statuses as of 01/12/2022) Medications Medication Sig Dispensed Refills Start Date End Date Status nystatin (NYSTOP) 651708 UNIT/GM powder Apply topically to affected area 3 times a day. 60 g 1 10/16/2019 Active Dexcom G6 Manager Branch Device Use as directed. To test blood sugars 4 times a day Dx E11.9 1 Each 0 09/14/2020 Active Dexcom G6 Transmitter Use as directed. To test blood sugars 4 times a day. Change every 90 days. Dx E11.9 1 Each 3 09/14/2020 Active OneTouch Verio In Vitro Strip (Glucose Blood) TESTING once daily 100 Strip 3 10/29/2020 Active OneTouch Delica Plus [id number] TESTING once daily 100 Each 3 10/29/2020 [...] BEFORE BREAKFAST 90 Capsule 1 07/22/2021 Active Escitalopram Oxalate 20 MG Oral Tablet (Lexapro)Indications :Recurrent major depressive disorder, in partial remission (HCC) TAKE 1 TABLET BY MOUTH ONCE DAILY 90 Tablet 1 08/07/2021 Active BD Pen Needle Mini U/F 31G [...] TWICE DAILY 180 Tablet 1 10/26/2021 Active Nadolol 40 MG Oral Tablet (Corgard)Indications :HTN, goal below 140/90 TAKE 1 TABLET BY MOUTH ONCE DAILY 90 Tablet 0 11/20/2021 Active Mupirocin 2 % External Ointment (Bactroban) Apply to the right side of the nose twice daily 22 g 0 11/08/2021 Active Furosemide 20 MG Oral Tablet (Lasix) TAKE 1 TABLET BY MOUTH DAILY NEEDED FOR LOWER EXTREMITY SWELLING 90 Tablet 0 12/08/2021 Active Spironolactone 25 MG Oral Tablet (Aldactone) TAKE 2 TABLETS BY MOUTH DAILY 60 Tablet 0 12/16/2021 Active Lantus SoloStar 100 UNIT/ML Subcutaneous Solution Pen-injector 32 Units every night at bedtime . 0 11/13/2021 Active Potassium Chloride ER 10 MEQ Oral Tablet Extended ReleaseIndications:H ypokalemia Take by mouth 1 Tablet in the morning. With food.. 90 Tablet 3 12/21/2021 Active documented as of this encounter (statuses as of 01/12/2022) Active Problems Problem Noted Date Food insecurity 09/20/2021 Overview: Per [facility] Protocol Chronic diastolic (congestive) heart [...] as of this encounter (statuses as of 01/12/2022) Resolved Problems Problem Noted Date Resolved Date [...] pain 01/24/2012 01/17/2017 Genetic Sleep Disorder Research Other*[id number] 05/13/2011 04/07/2016 Obstructive sleep apnea 01/18/2011 12/27/19 [...] as of this encounter (statuses as of 01/12/2022) Immunizations Name Administration Dates Next Due COVID-19 [...] Sign Reading Time Taken Comments Blood Pressure 111/58 01/12/2022 1:19 PM EDT Pulse 52 01/12/2022 1:19 PM EDT Temperature - - Respiratory Rate - - [...] Nursing Notes * Renetta Schuler RN - 01/12/2022 3:47 PM EDT Pt completed treatment without issues. [...] No coverage. * Renetta Schuler RN - 01/12/2022 2:07 PM EDT Pt presents to clinic in personal w/c. Pt seen by LUIS ALBERTO Kirk; refer to OV notes. VAD accessed; NSS/Venofer infusing. Safety and Risk for Injury Patient will remain free from injury. Ensure appropriate safety devices are available. Provide and maintain safe environment. documented in this encounter Plan of Treatment Upcoming Encounters Date Type Specialty Care Team Description 01/13/2022 Home Visit Family Medicine Kaylee Barakat, [facility] [place] [place] [address] [place] [address] 01/21/2022 Office Visit Gynecology Obstetrics Concetta Khan MD [address] [facility] [place] [address] 01/24/2022 Laboratory Laboratory Processing [facility] Home Draw [address] [place] [address] 01/27/2022 Office Visit Pharmacy [address] [address] 02/01/2022 Home Visit [facility] [place] July Poe RN [address] [place] [address] 02/02/2022 Hem/Onc Treatment Hematology Oncology [place], Chair 2 Hem Onc Scenery [address] [facility] [address] 02/07/2022 Laboratory Laboratory Processing [facility] Draw [address] [place] [address] 02/21/2022 Laboratory Laboratory Processing [facility] Home Draw [address] [place] [address] 02/23/2022 Laboratory Laboratory [place], Lab Scenery [address] [facility] [address] 02/23/2022 Hem/Onc Treatment Hematology Oncology [place], Chair 11 Hem Onc Scenery [address] [facility] [address] 03/07/2022 Laboratory Laboratory Processing [facility] Mobile Home Draw [address] [place] [address] 03/16/2022 Hem/Onc Treatment Hematology Oncology [place], Chair 2 Hem Onc Scenery [address] [place] [address] 03/24/2022 Office Visit Pulmonary [facility]do Mar[facility] [address] [facility] [id number] 04/06/2022 Laboratory Laboratory [place], Lab Scenery [address] [place] [address] 04/06/2022 Office Visit Hematology Oncology Zelda Kirk CRNP [address] [place] [address] 04/06/2022 Hem/Onc Treatment Hematology Oncology [place], Chair 10 Hem Onc Scenery [address] [place] [address] 04/26/2022 Telemedicine Endocrinology Alberta Duque PA-C [address] [place] [address] 04/28/2022 Office Visit Gastroenterology Lyssa Stout CRNP [address] [facility] [place] [address] 05/05/2022 Office Visit Cardiology Quyen Canseco CRNP [address] [facility] [place] [address] 05/30/2022 Office Visit Gynecology Obstetrics Susan Jara MD [address] [place] [address] 06/24/2022 Office Visit Sleep Disorders Love Francisco DO [address] [facility] [place] [address] Scheduled Procedures Name Priority Associated Diagnoses Date/Ti [...] 12 and Over 07/27/2021 07/27/2020, 12/09/2015, 10/20/2014 DIABETES-HGBA1C EVERY 6 MONTHS 02/17/2022 08/19/2021, 06/10/2021, [...] of this encounter Implants Implanted Type Area Cytotechnologist/Histotechnologist Device Identifier Shelf Expiration Date Model / Serial / Lot Microtech Sure Clip Implanted:Qty: 2 on 06/03/2020 by Janis Hatch DO at OR [facility] Clip N/A: Colon 04/21/2022 [facility]-F-26-2 35-C-R / / [id number] documented as of this encounter Visit Diagnoses [...] ONCE PRN Other, Hypersensitivity Reaction, Starting on Mon01/12/22 at 1354, Until [place] 01/13/22 at 1353, For 24 hours EPINEPHrine 1 MG/ML inj 0.3 mg 0.3 mg, Intramuscular, ONCE PRN Other, Hypersensitivity Reaction or Anaphylaxis, Starting on Mon01/12/22 at 1354, Until [place] 01/13/22 at 1353, For 24 hours hEParin 100 UNIT/ML Lock Flush inj 500 Units 500 Units (5 mL), IV Lock, PRN Other, IV Flush, Starting on Mon01/12/22 at 1354, Until [place] 01/13/22 at 1353, For 24 hours, Do not flush if lock, PICC, or central line not in place; IV infusing or unable to flush. Given 01/12/2022 3:32 PM EDT 500 Units Hydrocortisone Na Succinate PF (Solu-Cortef) inj 100 mg 100 mg, IV Push, ONCE PRN Other, Hypersensitivity Reaction, Starting on Mon01/12/22 at 1354, Until [place] 01/13/22 at 1353, For 24 hours NSS infusion 500 mL, Intravenous, at 50 mL/hr, CONTINUOUS, Starting on Mon01/12/22 at 1500, Until [place] 01/13/22 at 0059 Start Infusion 01/12/2022 1:55 PM EDT 500 mL 50 mL/hr sodium chloride 0.9 % flush/inj 10 mL 10 mL, IV Push, PRN Other, IV Flush, Starting on Mon01/12/22 at 1354, Until [place] 01/13/22 at 1353, For 24 hours, Do not flush if lock, PICC, or central line not in place; IV infusing or unable to flush. Given 01/12/2022 3:32 PM EDT 10 mL Inactive Administered Medications - up to 3 most recent administrations Medication Order MAR Action Action Date Dose Rate Site Iron Sucrose (Venofer) 300 mg in NSS 250 mL ivpb 300 mg, IV Piggyback, ONCE, 1 dose, On Mon01/12/22 at 1530, Administer over 90 Minutes Start Infusion 01/12/2022 1:56 PM EDT 300 mg 166.67 mL/hr documented in this encounter Advance Directives Documents on File Type Date Recorded Patient [employer] Resource Teacher 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 WILL AND HEALTH CARE POA Power of Pump And Blower Operator 04/29/2021 12:00 AM [facility] POA Advanced Directive 04/01/2021 1:14 [...] Syed Bustos Spouse Emergency Contact Care Teams Waste Chopper Relationship Specialty Start Date End Date Vanita Dunn MD [address] [place] [address] PCP - General Family Medicine 03/16/21 documented as of this encounter
--- OUTSIDE RECORDS SUMMARY | 2023-05-10 18:56 | External Medical Summary | Summary of Care ---
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 60 g 1 10/16/2019 Active Dexcom G6 Esol Instructor Device Use as directed. To test blood sugars 4 times a day Dx E11.9 1 Each 0 09/14/2020 Active Dexcom G6 Transmitter Use as directed. To test blood sugars 4 times a day. Change every 90 days. 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 05/13/2011 04/07/2016 Obstructive sleep apnea 01/18/2011 12/27/19 [...] as of this encounter (statuses as of 01/13/2022) Immunizations Name Administration Dates Next Due COVID-19 [...] Sign Reading Time Taken Comments Blood Pressure 112/58 01/13/2022 1:29 PM EDT Pulse 56 01/13/2022 1:29 PM EDT Temperature 36.9 C (98.4 F) 01/13/2022 1:29 PM ED T Respiratory Rate 18 01/13/2022 1:29 PM EDT Oxygen Saturation 91% 01/13/2022 1:29 PM EDT Inhaled Oxygen Concentration - - [...] this encounter Progress Notes * Kaylee Barakat, [facility] Drill Sharpener - 01/13/2022 1:28 PM EDT Community [facility] Drill Sharpener Visit Date: 01/13/2022 Time: 1:28 PM Name: Shaina Bustos : 1955 Referral Source: automotive services manager Source of Information: Patient COVID-19 screening completed: Yes Vitals: Vital signs completed: Yes, vital signs within normal range. BP 112/58 | Pulse 56 | Temp 36.9 C (98.4 F) | Resp 18 | SpO2 91% Condition Changes: Changes in health or social status since last visit: Denied BM issues SoB at baseline Edema in LE at baseline BSG has been 100-120 Appetite is good She has received the pu-rwick device she is using this at night when car tube winder hand is not there Denied any open areas on the skin Coughing has mucase but will not come up to spit out it gets stuck in her throat The patient has new concerns since last visit: No Medications: Medication review completed? No, . Does the patient have barriers to medication adherence? No. Patient reports difficulty paying for medications or might in the future: No. Telehealth: This is a telehealth visit: No. Symptoms Surveys and Evaluations: MAHC10 completed this visit: Yes. Score is 4 or more? Yes, notified Provider/Monotype Setter Last flowsheet values for [facility]: Age 65+: 1 (11/30/2021 1:00 PM) Diagnosis (3 or more co-existing): 1 (11/30/2021 1:00 PM) Prior history of falls within 3 months: 0 (11/30/2021 1:00 PM) Incontinence: 1 (11/30/2021 1:00 PM) Visual impairment: 1 (11/30/2021 1:00 PM) Impaired functional mobility: 1 (11/30/2021 1:00 PM) Environmental hazards: 1 (11/30/2021 1:00 PM) Poly Pharmacy (4 or more prescriptions - any type): 1 (11/30/2021 1:00 PM) Pain affecting level of function: 1 (11/30/2021 1:00 PM) Cognitive impairment: 0 (11/30/2021 1:00 PM) Score - a score of 4 or more is considered at risk for fallin (11/30/2021 1:00 PM) Plan: Reinforced care plan established by care team . Follow Up: Patient encouraged to call the intake phone number for all urgent but not emergent issues. Scheduled to follow up with patient in 6 weeks . Kaylee Barakat [facility] Drill Sharpener 01/13/2022 1:28 PM documented in this encounter Plan of Treatment Upcoming Encounters Date Type Specialty Care Team Description 01/21/2022 Office Visit Gynecology Obstetrics Concetta Khan MD [address] [place], [place] [phone] 01/24/2022 Laboratory Laboratory Processing [facility] [place] [facility] [place] Draw [address], [place] [phone] 01/27/2022 Office Visit Pharmacy [facility] [address], [place] [phone] 02/01/2022 [facility] Visit [facility] July Poe RN [address] [place] [address] 02/02/2022 Hem/Onc Treatment Hematology Oncology [place], Chair 2 Hem Onc Scenery [address] [facility] [address] 02/07/2022 Laboratory Laboratory Processing [facility] [place] Draw [address] [place] [address] 02/21/2022 Laboratory Laboratory Processing [facility] Mobile Home Draw [address] [place] [address] 02/23/2022 Laboratory Laboratory [place], Lab Scenery [address] [place] [address] 02/23/2022 Hem/Onc Treatment Hematology Oncology [place], Chair 11 Hem Onc Scenery [address] [facility] [address] 02/24/2022 Home Visit Family Medicine Kaylee Barakat, [facility] Drill Sharpener [address] [place] [address] 03/07/2022 Laboratory Laboratory Processing [facility] Mobile Home Draw [address] [place] [address] 03/16/2022 Hem/Onc Treatment Hematology Oncology [place], Chair 2 Hem Onc Scenery [address] [place] [address] 03/24/2022 Office Visit Reynaldo Marks MD [address] [place] [address] 04/06/2022 Laboratory Laboratory [place], Lab Scenery [address] [place] [address] 04/06/2022 Office Visit Hematology Oncology Zelda Kirk CRNP [address] [place] [address] 04/06/2022 Hem/Onc Treatment Hematology Oncology [place], Chair 10 Hem Onc Scenery [address] [facility], [place] [address] 04/26/2022 Telemedicine Endocrinology Alberta Duque PA-C [address] [place] [address] 04/28/2022 Office Visit Gastroenterology Lyssa Stout CRNP [address] [facility] [place] [address] 05/05/2022 Office Visit Cardiology Quyen Canseco CRNP [address] [facility] [place] [address] 05/30/2022 Office Visit Gynecology Obstetrics Susan Jara MD [address] [place] [address] 06/24/2022 Office Visit Sleep Disorders Love Francisco DO [address] [facility] [place] [address] Scheduled Procedures Name Priority Associated Diagnoses Date/Ti [...] of this encounter Implants Implanted Type Area Pharmaceutical Salesperson Device Identifier Shelf Expiration Date Model / Serial / Lot Microtech Sure Clip Implanted:Qty: 2 on 06/03/2020 by Janis Hatch DO at OR [facility] Clip N/A: Colon 04/21/2022 [facility]-F-26-2 35-C-R / / [id number] documented as of this encounter Advance Directives Documents on File Type Date Recorded Patient Classics Teacher 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 WILL AND HEALTH CARE POA Power of Straightening Machine Operator 04/29/2021 12:00 AM [facility] CARE POA Advanced Directive 04/01/2021 [...] Agents on File Name Relationship Healthcare Agent [facility] p Communication Syed Bustos Spouse Emergency Contact Care Teams Air Conditioning Equipment Mechanic Relationship Specialty Start Date End Date Vanita Dunn MD [address] [place] [address] PCP - General Family Medicine 03/16/21 documented as of this encounter"
--- OUTSIDE RECORDS SUMMARY | 2023-05-10 18:56 | External Medical Summary | Summary of Care ---
Author Name Unknown Organization [place] [address] Care Team Providers Care Exercise Manager Name Role Phone Vanita Dunn MD Primary Care Provid er Reason for Visit * Reason Comments Follow Up 6m Encounter Details Date Type Department Care Team Description 01/12/2022 Office Visit Hematology/Oncology [facility] Maryellen [place] [address] [place] [address] Zelda Kirk CRNP [address] [place] [address] Anemia, unspecified type* 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 documented as of this encounter (statuses as of 01/12/2022) Medications Medication Sig Dispensed Refills Start Date End Date Status nystatin (NYSTOP) 069741 UNIT/GM powder Apply topically to affected area 3 times a day. 60 g 1 10/16/2019 Active Dexcom G6 Turbine Blade Assembler Device Use as directed. To test blood sugars 4 times a day Dx E11.9 1 Each 0 09/14/2020 Active Dexcom G6 Transmitter Use as directed. To test blood sugars 4 times a day. Change every 90 days. Dx E11.9 1 Each 3 09/14/2020 Active OneTouch Verio In Vitro Strip (Glucose Blood) TESTING once daily 100 Strip 3 10/29/2020 Active OneTouch Delica Plus [id number] TESTING once daily 100 Each 3 10/29/2020 [...] 10/26/2021 Active Nadolol 40 MG Oral Tablet (Corgard)Indication [...] With food.. 90 Tablet 3 12/21/2021 Active albuterol sulfate (PROVENTIL) (2.5 MG/3ML) 0.083% nebulizer solutionIndications :Pulmonary vascular congestion Inhale 1 Vial via nebulizer every 6 hours as needed for Wheezing. 120 Vial 11 10/02/2019 2 Discontinu ed(Medicat ion List Clean Up) Albuterol Sulfate (ALBUTEROL HFA) 108 (90 BASE) MCG/ACT inhalerIndications: Intermittent asthma with reliever use up to twice per week without complication Inhale 2 Puffs by mouth every 4 hours as needed for Cough or Wheezing. With spacer 16 g 1 11/06/2019 2 Discontinu ed(Medicat ion List Clean Up) Ipratropium-Albuter ol 0.5-2.5 (3) MG/3ML Inhalation Solution (DUONEB)Indications :Moderate persistent asthma with acute exacerbation Inhale 3 mL via nebulizer 4 times a day. 3 mL 10 07/27/2020 2 Discontinu ed(Medicat ion List Clean Up) Lidocaine-Prilocain e 2.5-2.5 % External Cream (Emla)Indications:I roshan deficiency anemia due to chronic blood loss,Pancytopenia (HCC) Apply topically to affected area as needed for Other (for port). APPLY TO SKIN OVER MEDIPORT & COVER 1HR PRIOR TO ACCESSING. 30 g 3 10/09/2020 2 Discontinu ed(Medicat ion List Clean Up) documented as of this encounter (statuses as [...] pain 01/24/2012 01/17/2017 Genetic Sleep Disorder Research Other*[id number] 05/13/2011 04/07/2016 Obstructive sleep apnea 01/18/2011 12/27/19 [...] Time Taken Comments Blood Pressure 111/58 01/12/2022 1:08 PM EDT Pulse 52 01/12/2022 1:08 PM EDT Temperature 36.7 C (98.1 F) 01/12/2022 1:08 PM ED T Respiratory Rate 16 01/12/2022 1:08 PM EDT Oxygen Saturation 98% 01/12/2022 1:08 PM EDT Inhaled Oxygen Concentration - - [...] of this encounter Progress Notes * ZAK Rene - 01/12/2022 12:42 PM EDT Hematology/Oncology Outpatient Clinic note [facility] [address] [facility] [place] [address] Name: Shaina Bustos Date: 01/12/2022 CHIEF COMPLAINT: Shaina Bustos is a 66 year old female patient here today for f/u visit. Patient of Dr. Sanchez. History from patient chart, my progress note from 07/06/2021, and confirmed with patient. DIAGNOSIS: -pancytopenia related to underlying cirrhosis of liver and splenomegaly -iron deficiency anemia. DIAGNOSTIC WORKUP: She is referred to hematology for evaluation of the anemia. Dr. Sanchez has reviewed her medical records. He also reviewed her medical records from [facility]. She has underlying cirrhosis of liver, has evidence of iron deficiency for the last 1 year, Ferritin level was less than 10 earlier in December 2018, she was on oral iron replacement therapy once a day,lately increase to twice a day. She was admitted at [facility] in November 2019, she received 1 to [...] neoplasia. Clinical History HISTORY OF PRESENT ILLNESS: Shaina Bustos is a 66 year old female with a history as outlined above. Currently here for f/u visittoday. She is accompanied by her . Pt states that she has had intermittent vaginal bleeding over the past year and sometimes the flow was heavy. She underwent a hysteroscopy procedure on 12/27/2021. She had some vaginal bleeding after the procedure, but that is resolving. No melena or hematochezia. If she has a constipated stool then she might have a little hemorrhoidal bleeding e.g., < 1 tsp. No epistaxis. She tolerates the Venofer w/ no obvious side effects. 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49 education: 12 service: no hobbies/interests: reading transfusions: no exercise: no diet: no buddhism/evangelical: Raised religion marital status: 2nd time 11/15 children: 1 [...] by Josh Vazquez MD at OR [facility] DELIVERY 04/20/1982 COLONOSCOPY 04/21/2009 repeat in 10 years COLONOSCOPY, DIAGNOSTIC (RECTUM) 10/04/2016 normal bx, repeat 10 yrs/[facility] COLONOSCOPY, DIAGNOSTIC (RECTUM) N/A 06/03/2020 internal hemorrhoids/biopsies show adenomatous polyps/recall 5 years/COLONOSCOPY FLEXIBLE PROXIMAL DIAGNOSTIC performed by Janis Hatch DO at [facility] COLONOSCOPY, DIAGNOSTIC (RECTUM) 03/17/2020 poor prep / [facility] DENTAL SURGERY PROCEDURE NEC wisdom teeth x 4 DILATION AND CURETTAGE (D&C) EGD, FLEXIBLE, DIAGNOSTIC 10/04/2016 gastritis/[facility] EGD, FLEXIBLE, DIAGNOSTIC 01/11/2018 eso varices, retained food, repeat 1 yr/[facility] EGD, FLEXIBLE, DIAGNOSTIC N/A 06/03/2020 severe erosive esophagitis/non-bleeding grade II esophageal varices/gastritis/biopsies show inflammatory changes/repeat 3-4 months/ESOPHAGOGASTRODUODENOSCOPY (EGD), FLEXIBLE, TRANSORAL, DIAGNOSTIC per formed by Janis Hatch DO at [facility] EGD, FLEXIBLE, DIAGNOSTIC 11/27/2019 eso varices, portal hypertensive gastropathy, gastritis / [facility] EGD, FLEXIBLE, DIAGNOSTIC N/A 08/05/2020 large amount of food in stomach/repeat 1.5 years/ESOPHAGOGASTRODUODENOSCOPY (EGD), FLEXIBLE, TRANSORAL, DIAGNOSTIC performed by Janis Hatch DO at OR [facility] EGD, FLEXIBLE, DIAGNOSTIC N/A 03/10/2021 ESOPHAGOGASTRODUODENOSCOPY (EGD), FLEXIBLE, TRANSORAL, DIAGNOSTIC performed by Kris Blankenship MD at ENDOSCOPY [facility] HYSTEROSCOPY W/BIOPSY AND/OR POLYPECTOMY W/WO D&C N/A 12/27/2021 HYSTEROSCOPY WITH BIOPSY AND/OR POLYPECTOMY WITH OR WITHOUT D&C performed by Concetta Khan MD at OR [facility] IR VENOUS ACCESS MEDIPORT 10/05/2020 PELVIS/HIP JOINT SURGERY NEC teenager aid in walking REMOVE CERVIX CONE W/LOOP ELECTRODE N/A 12/27/2021 LOOP ELECTROSURGERY EXCISION PROCEDURE performed by Concetta Khan MD at OR [facility] REPAIR/GRAFT ACHILLES TENDON age 40 aid in walking Family History Problem Relation Age of Onset Heart Disorder Father of [place] at age 61 Diabetes Father Heart Disorder Mother of [place] age 72 Heart Disorder Sister Mi at age 46 Hypertension Sister Cancer No significant family history Arthritis No significant family history Mental Disorder No significant family history Stroke No significant family history Review of patient's allergies indicates: Allergen Reactions Adhesive Tape Itching Pcn [Penicillins] Rash Perflutren Protein A Microsph Definity-lower back pain Current Outpatient Medications Medication Sig Dispense Refill albuterol sulfate (PROVENTIL) (2.5 MG/3ML) 0.083% nebulizer solution Inhale 1 Vial via nebulizer every 6 hours as needed for Wheezing. (Patient not taking: Reported on 12/27/2021 ) 120 Vial 11 nystatin (NYSTOP) 076816 UNIT/GM powder Apply topically to affected area 3 times a day. (Patient not taking: Reported on 12/27/2021 ) 60 g 1 Albuterol Sulfate (ALBUTEROL HFA) 108 (90 BASE) MCG/ACT inhaler Inhale 2 Puffs by mouth every 4hours as needed for Cough or Wheezing. With spacer (Patient not taking: Reported on 12/27/2021 ) 16 g 1 Ipratropium-Albuterol 0.5-2.5 (3) MG/3ML Inhalation Solution (DUONEB) Inhale 3 mL via nebulizer4 times a day. (Patient not taking: Reported on 12/27/2021 ) 3 mL 10 Dexcom G6 Turbine Blade Assembler Device Use as directed. To test blood sugars 4 times a day Dx E11.9 1 Each 0 Dexcom G6 Transmitter Use as directed. To test blood sugars 4 times a day. Change every 90 days. Dx E11.9 1 Each 3 Lidocaine-Prilocaine 2.5-2.5 % External Cream (Emla) Apply topically to affected area as neededfor Other (for port). APPLY TO SKIN OVER MEDIPORT & COVER 1HR PRIOR TO ACCESSING. (Patient not taking: Reported on 12/27/2021 ) 30 g 3 OneTouch Verio In Vitro Strip (Glucose Blood) TESTING once daily 100 Strip 3 OneTouch Delica Plus [id number] TESTING once daily 100 Each 3 Nitroglycerin 0.4 MG Sublingual Tablet Sublingual (Nitrostat) Place 1 Tab under the tongue every 5 minutes as needed for Pain, Chest. up to 3 doses in 15 minutes (Patient not taking: Reported on 12/27/2021 ) 25 Tab 11 BiPAP every night at bedtime. MEDICAL INSTRUCTIONS Please de-access patient's port. Please flush with 10 mL of NS, followed by 500 units (5 mL) of heparin. 1 Each N/A NovoLOG FlexPen 100 UNIT/ML Subcutaneous Solution Pen-injector Inject under the skin three times a day before meals. 32 Units at breakfast, 36 Units before lunch, 36 Units before supper Trulicity 4.5 MG/0.5ML Subcutaneous Solution Pen-injector (Dulaglutide) Inject one pen (4.5 mg)under the skin once weekly 6 mL 3 Docusate Sodium 100 MG Oral Capsule (Colace) [...] ONCE DAILY BEFORE BREAKFAST 90 Capsule 1 Escitalopram Oxalate 20 MG Oral Tablet (Lexapro) TAKE 1 TABLET BY MOUTH ONCE DAILY 90 Tablet 1 BD Pen Needle Mini U/F 31G X 5 MM (Insulin Pen Needle) USE TO INJECT INSULIN FOUR TIMES DAILY. 400 Each 3 Isosorbide Mononitrate ER 30 MG Oral Tablet Extended Release 24 Hour (Imdur) TAKE 1 TABLET BY MOUTH ONCE DAILY 30 Tablet 5 Aspirin 81 MG Oral Tablet Chewable CHEW AND SWALLOW 1 TABLET BY MOUTH ONCE DAILY 30 Tablet 5 Atorvastatin Calcium 80 MG Oral Tablet (Lipitor) TAKE 1 TABLET BY MOUTH AT BEDTIME 30 Tablet 5 Lactulose 10 GM/15ML Oral Solution (Constulose) Take 30mL by mouth twice daily, titrate dose for effect of 3-5 bowel movements daily 240 mL 3 Benzonatate 100 MG Oral Capsule (Tessalon Perles) Take 1 Capsule by mouth 3 times a day as needed for Cough. 30 Capsule 1 Budesonide-Formoterol Fumarate 160-4.5 MCG/ACT Inhalation Aerosol (Symbicort) Inhale 2 Puffs bymouth 2 times a day. (Patient not taking: Reported on 12/27/2021 ) 10.2 g 1 Dexcom G6 Sensor use [...] BY MOUTH TWICE DAILY 180 Tablet 1 Nadolol 40 MG Oral Tablet (Corgard) TAKE 1 TABLET BY MOUTH ONCE DAILY 90 Tablet 0 Mupirocin 2 % External Ointment (Bactroban) Apply to the right side of the nose twice daily (Patient not taking: Reported on 12/27/2021 ) 22 g 0 Furosemide 20 MG Oral Tablet (Lasix) TAKE 1 TABLET BY MOUTH DAILY NEEDED FOR LOWER EXTREMITYSWELLING 90 Tablet 0 Spironolactone 25 MG Oral Tablet (Aldactone) TAKE 2 TABLETS BY MOUTH DAILY 60 Tablet 0 Lantus SoloStar 100 UNIT/ML Subcutaneous Solution Pen-injector 32 Units every night at bedtime . Potassium Chloride ER 10 MEQ Oral Tablet Extended Release Take by mouth 1 Tablet in the morning. With food.. 90 Tablet 3 No current facility-administered medications for this visit. REVIEW OF SYSTEMS: Performance Status: Normal - ECOG 3 See HPI, otherwise negative. OBJECTIVE: Filed Vitals: 01/12/22 1308 BP: 111/58 Pulse: 52 Resp: 16 Temp: 36.7 C (98.1 F) TempSrc: Tympanic SpO2: 98% Wt Readings from Last 5 Encounters: 12/27/21 113.4 kg (250 lb) 12/23/21 117.9 kg (260 lb) 12/20/21 113.4 kg (250 lb) 12/18/21 113.4 kg (250 lb) 09/23/21 113.4 kg (250 lb) PHYSICAL EXAM: General Appearance: Normal - Healthy appearing patient in no acute distress Skin: Normal- No rashes, lesions or petechiae. HEENT: Normal - No oral or pharyngeal masses, ulceration or thrush noted, no sinus tenderness Lymph Nodes: Normal - No palpable lymph nodes in the neck or supraclavicular areas Lungs/Thorax: Normal - Clear to auscultation Heart: Normal - Regular rate and rhythm, normal S1, S2, no appreciable murmurs, rubs, gallops Pulses/Extremities: Normal - 2+ throughout and symmetrical, no edema b/l Abdomen: Normal - Soft, nontender, bowel sounds present, no appreciable hepatosplenomegaly, no palpable masses Musculoskeletal: Normal - No pain on palpation over bony prominence, no joint or bony deformity Neurologic: Normal - Grossly intact Psyche: No vegetative signs of depression. LABS: Results for orders placed or performed [...] results can be found in Results Review. IMPRESSION: Iron Deficiency Anemia, in the setting [...] w/ bx, D&C, and polypectomy on 12/27/2021. She had some vaginal bleeding s/p the procedure, but reports it is starting to resolve. No vaginal bleeding today. Occasional small amount of BRBPR w/ constipated stool. This is < 1 tsp and rarely occurs. She tolerates the Venofer w/ no obvious side effects. Functional status is at baseline. She requires a motorized scooter and total assist for transfers. PLAN: RTC on 02/02/22 for Venofer. Labs: CBCD, ferritin, and iron screen. RTC q 3 weeks for Venofer and labs: CBCD, ferritin, and iron screen. RTC w/ me in 12 weeks. Coordinate w/ Venofer infusion and labs. I had a discussion with Shaina Bustos regarding the plan of care, treatment and other issues. Thirtyminutes were spent counseling the patient face to face. The total time spent in the appointment was40 minutes. ZAK Fields documented in this encounter Nursing Notes * Lilian Jara CMA - 01/12/2022 1:08 PM EDT Patient identifed by name and birthdate Do you have any concerns about pain management for today's visit? No Living Will or Advance Directive for Health Care as noted on the problem list. [facility] is a way you can talk to your provider on line through e-mail. Would you like to sign up? I can activate it for you? No Filed Vitals: 01/12/22 1308 BP: 111/58 Pulse: 52 Resp: 16 Temp: 36.7 C (98.1 F) TempSrc: Tympanic SpO2: 98% Patient was instructed to not get up on the exam table/exam chair until directed and assisted by their provider; patient is to remain seated in the chair/ wheelchair/ exam table/ exam chair for fall prevention and safety reasons. Patient is aware to have assistance to step down off exam table/exam chair with personnel. Patient voiced full comprehension of instructions. documented in this encounter Plan of Treatment Upcoming Encounters Date Type Specialty Care Team Description 01/13/2022 Home Visit Family Medicine Kaylee Barakat, [facility] [employer] [address] [place] [address] 01/21/2022 Office Visit Gynecology Obstetrics Concetta Khan MD [address] [place] [address] 01/24/2022 Laboratory Laboratory Processing [facility] Draw [address] [place] [address] 01/27/2022 Office Visit [address] [address] 02/01/2022 Home Visit [facility] July Poe, RN [address] [place] [address] 02/02/2022 Hem/Onc Treatment Hematology Oncology [place], Chair [address] Hem Onc [address] [facility] [place] [address] 02/07/2022 Laboratory Laboratory Processing [facility] Draw [address] [place] [address] 02/21/2022 Laboratory Laboratory Processing [facility] Draw [address] [place] [address] 02/23/2022 Laboratory Laboratory [place], Lab Scenery [address] [place] [address] 02/23/2022 Hem/Onc Treatment Hematology Oncology [place], Chair 11 Hem On[address] [place] [address] 03/07/2022 Laboratory Laboratory Processing [facility] Draw [address] [place] [address] 03/16/2022 Hem/Onc Treatment Hematology Oncology [place], Chair 2 Hem Onc [address] [place] [address] 03/24/2022 Office Visit Pulmonary Reynaldo Marquez MD [address] [place] [address] 04/06/2022 Laboratory Laboratory [place], Lab Scenery [address] [place] [address] 04/06/2022 Office Visit Hematology Oncology Zelda Kirk CRNP [address] [place] [address] 04/06/2022 Hem/Onc Treatment Hematology Oncology [place], Chair [address] Hem On[address] [place] [address] 04/26/2022 Telemedicine Endocrinology Alberta Duque PA-C [address], [place] [id number] 04/28/2022 Office Visit Gastroenterology Lyssa Stout CRNP [address] [place] [address] 05/05/2022 Office Visit Cardiology Quyen Canseco CRNP [address] [place] [address] 05/30/2022 Office Visit Gynecology Obstetrics Susan Jara MD [address] [place] [address] [place] [address] 06/24/2022 Office Visit Sleep Disorders Love Francisco DO [address] [place] [address] Scheduled Procedures Name Priority Associated Diagnoses Date/Ti [...] of this encounter Implants Implanted Type Area Offset Press Operator Device Identifier Shelf Expiration Date Model / Serial / Lot [employer] Sure Clip Implanted:Qty: 2 on 06/03/2020 by Janis Hatch DO at OR [facility] Clip N/A: Colon 04/21/2022 [facility]-F-[id number] 35-C-R / / [id number] documented as of this encounter Visit Diagnoses Diagnosis Anemia, unspecified type- Primary documented in this encounter Advance Directives Documents on File Type Date Recorded Patient Facilities And Grounds Director 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 WILL AND HEALTH CARE POA Power of Card Puncher 04/29/2021 12:00 AM TOM R OF [employer] [facility] POA Advanced Directive 04/01/2021 1:14 [...] Syed Bustos Spouse Emergency Contact Care Teams Exercise Manager Relationship Specialty Start Date End Date Vanita Dunn MD [address] [place] [address] PCP - General Family Medicine 03/16/21 documented as of this encounter
--- OUTSIDE RECORDS SUMMARY | 2023-05-10 18:57 | External Medical Summary ---
Author Name Unknown Address Unknown Organization K01:LABORATORY [facility] - [address] [place] [address] Laboratory Report Ordering Provider Test Date Status JACOB CORBETT 01/10/2022 08:03:00 Final Observation Date Value Abnormality Reference (Units ) Status Ferritin 01/10/2022 08:03:00 113 13-150 (ng /mL) Final Performing Location [facility] - [address] [place] [address]
--- OUTSIDE RECORDS SUMMARY | 2023-05-10 18:57 | External Medical Summary ---
Author Name Unknown Address Unknown Organization K0G:[facility] [address] [place] [address] Laboratory Report Ordering Provider Test Date Status JACOB CORBETT 01/10/2022 08:03:00 Final Observation Date Value Abnormality Reference (Units ) Status SYNC LEUKOCYTES IN BLOOD BY AUTOMATED COUNT 01/10/2022 08:03:00 3.36 Below low normal 4.00-10.80 (K/uL) Final Segs 01/10/2022 08:03:00 48.0 40.0-75.0 (%) Final Lymphs % 01/10/2022 08:03:00 23.2 18.0-42.0 (%) Final Monos 01/10/2022 08:03:00 19.6 Above high normal 1.0-11.0 (%) Final Eosinophils 01/10/2022 08:03:00 8.6 Above high normal 0.0-6.0 (%) Final Basos 01/10/2022 08:03:00 0.6 0.0-2.0 (%) Final Absolute Segs 01/10/2022 08:03:00 1.61 Below low normal 1.80-7.70 (K/uL) Final Lymphs, absolute 01/10/2022 08:03:00 0.78 Below low normal 1.00-4.80 (K/ul) Final Monos, Abs 01/10/2022 08:03:00 0.66 0.00-1.10 (K/uL) Final Eos, Abs 01/10/2022 08:03:00 0.29 0.00-0.70 (K/uL) Final Basos, Abs 01/10/2022 08:03:00 0.02 0.00-0.20 (K/uL) Final Performing Location LABORATORY [facility] [address] [place] [address]
--- OUTSIDE RECORDS SUMMARY | 2023-05-10 18:57 | External Medical Summary | Summary of Care ---
Author [place] [address] Care Team Providers Care Roller [place]illet Mill Name Role Phone Vanita Dunn MD Primary Care Provid er Reason for Visit * Reason Onset Date Comments Advice 01/11/2022 Encounter Details Date Type Department Care Team Description 01/11/2022 Telephone Gynecology/Obstetrics [facility] [address] [place] [address] Services, Scheduling [address] [place] [address] Advice 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 documented as of this encounter (statuses as of 01/11/2022) Medications Medication Sig Dispensed Refills Start Date End Date Status albuterol sulfate (PROVENTIL) (2.5 MG/3ML) 0.083% nebulizer solutionIndications: Pulmonary vascular congestion Inhale 1 Vial via nebulizer every 6 hours as needed for Wheezing. 120 Vial 11 10/02/2019 Active Additional Information Patient not taking. Informant: Pharmacy, Reported on 12/27/2021 nystatin (NYSTOP) 946329 UNIT/GM powder Apply topically to affected area 3 times a day. 60 g 1 10/16/2019 Active Additional Information Patient not taking. Informant: Pharmacy, Reported on 12/27/2021 Albuterol Sulfate (ALBUTEROL HFA) 108 (90 BASE) MCG/ACT inhalerIndications:I ntermittent asthma with reliever use up to twice per week without complication Inhale 2 Puffs by mouth every 4 hours as needed for Cough or Wheezing. With spacer 16 g 1 11/06/2019 Active Additional Information Patient not taking. Informant: Pharmacy, Reported on 12/27/2021 Ipratropium-Albutero l 0.5-2.5 (3) MG/3ML Inhalation Solution (DUONEB)Indications: Moderate persistent asthma with acute exacerbation Inhale 3 mL via nebulizer 4 times a day. 3 mL 10 07/27/2020 Active Additional Information Patient not taking. Informant: Pharmacy, Reported on 12/27/2021 Dexcom G6 Security Guard Device Use as directed. To test blood sugars 4 times a day Dx E11.9 1 Each 0 09/14/2020 Active Dexcom G6 Transmitter Use as directed. To test blood sugars 4 times a day. Change every 90 days. 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 APPLY TO SKIN OVER MEDIPORT & COVER 1HR PRIOR TO ACCESSING. 30 g 3 10/09/2020 Active Additional Information Patient not taking. Informant: Pharmacy, Reported on 12/27/2021 OneTouch Verio In Vitro Strip (Glucose Blood) TESTING once daily 100 Strip 3 10/29/2020 Active OneTouch Delica Plus [id number] TESTING once daily 100 Each 3 10/29/2020 [...] MCG/ACT Inhalation Aerosol (Symbicort) Inhale 2 Puffs by mouth 2 times a day. 10.2 g 1 09/27/2021 Active Dexcom G6 [...] twice daily 22 g 0 11/08/2021 Active Additional Information Patient not taking. Reported on 12/27/2021 Furosemide 20 MG Oral Tablet (Lasix) TAKE [...] as of this encounter (statuses as of 01/11/2022) Active Problems Problem Noted Date Food insecurity [...] as of this encounter (statuses as of 01/11/2022) Resolved Problems Problem Noted Date Resolved Date [...] pain 01/24/2012 01/17/2017 Genetic Sleep Disorder Research Other*[id number] 05/13/2011 04/07/2016 Obstructive sleep apnea 01/18/2011 12/27/19 [...] as of this encounter (statuses as of 01/11/2022) Immunizations Name Administration Dates Next Due COVID-19 [...] encounter Miscellaneous Notes * Telephone Encounter - Arlin Rogers LPN - 01/11/2022 1:43 PM EDT Phone call to pt. Pt scheduled for 01/21/2022 Arlin Rogers LPN 01/11/2022 1:43 PM * Telephone Encounter - THAD Castro - 01/11/2022 11:16 AM EDT First available is in the middle of March, not sure if this should wait that long. Plus would like to speak with someone as mentioned in previous encounter. Please advise. * Telephone Encounter - THAD Monreal - 01/11/2022 10:31 AM EDT Pt called and rescheduled appointment, appointment is scheduled for May and added to wait list, please assist for sooner appointment. Also wants someone to call them back to discuss somethings. documented in this encounter Plan of Treatment Upcoming Encounters Date Type Specialty Care Team Description 01/12/2022 Office Visit Hematology Oncology Zelda Kirk CRNP 200 [place] [address] 01/12/2022 Hem/Onc Treatment Hematology Oncology Maryellen, Chair 7 Hem Onc [place] [address] [place] [address] 01/13/2022 Home Visit Family Medicine Kaylee Barakat, [facility] Metal Template Maker [address] [place] [address] 01/21/2022 Office Visit Gynecology Obstetrics Concetta Khan MD [address] [place] [address] 01/24/2022 Laboratory Laboratory Processing [facility], [facility] Mobile Home Draw [address] [place] [address] 01/27/2022 Office Visit Pharmacy [place], [address] [address] 01/28/2022 Hem/Onc Treatment Hematology Oncology [place], Chair 1 Hem Onc [address] [place] [address] 02/01/2022 Home Visit [facility] July Poe RN [address] [place] [address] 02/07/2022 Laboratory Laboratory Processing [facility], [facility] Mobile Home Draw [address] [place] [address] 02/18/2022 Hem/Onc Treatment Hematology Oncology [place], Chair 1 Hem Onc Scenery [address] [place] [address] 02/21/2022 Laboratory Laboratory Processing [facility], [facility] Mobile Home Draw [address] [place] [address] 03/07/2022 Laboratory Laboratory Processing [facility], [facility] Mobile Home Draw [address] [place] [address] 03/11/2022 Hem/Onc Treatment Hematology Oncology [place], Chair 1 Hem Onc Scenery [address] [place] [address] 03/24/2022 Office Visit Reynaldo Marks MD [address] [place] [id number] 04/01/2022 Hem/Onc Treatment Hematology Oncology [place], Chair 1 Hem Onc Scenery [address] [place] [address] 04/22/2022 Hem/Onc Treatment Hematology Oncology [place], Chair 1 Hem Onc Scenery [address] [place] [address] 04/26/2022 Telemedicine Endocrinology Alberta Duque PA-C [address] [place] [address] 04/28/2022 Office Visit Gastroenterology Lyssa Stout CRNP 132 [facility] [place] [address] 05/05/2022 Office Visit Cardiology Quyen Canseco [facility] [address] [facility] [address] 05/30/2022 Office Visit Gynecology Obstetrics Susan Jara MD 400 [facility] [place], [place] [phone] 06/24/2022 Office Visit Sleep Disorders Love Francisco DO 132 [facility] [place] [address] Scheduled Procedures Name Priority Associated Diagnoses Date/Ti [...] of this encounter Implants Implanted Type Area Occupancy Specialist Device Identifier Shelf Expiration Date Model / Serial / Lot Microtech Sure Clip Implanted:Qty: 2 on 06/03/2020 by Janis Hatch DO at OR [facility] Clip N/A: Colon 04/21/2022 [facility]-F-26-2 35-C-R / / [id number] documented as of this encounter Advance Directives Documents on File Type Date Recorded Patient Environmental Remediation Consultant 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 HEALTH CARE POA Power of Manager Medical Affairs 04/29/2021 12:00 AM TOM R OF VICE PRESIDENT OF SALES HEALTH CARE POA Advanced Directive 04/01/2021 1:14 [...] Agents on File Name Relationship Healthcare Agent [facility] Communication Syed Bustos Spouse Emergency Contact Care Teams [employer] [place] [place] Relationship Specialty Start Date End Date Vanita Dunn MD [address] [place] [address] PCP - General Family Medicine 03/16/21 documented as of this encounter
--- OUTSIDE RECORDS SUMMARY | 2023-05-10 18:57 | External Medical Summary ---
Author Name Unknown Address Unknown Organization K0G:[facility] [address] [place] [address] Laboratory Report Ordering Provider Test Date Status JACOB CORBETT 01/10/2022 08:03:00 Final Observation Date Value Abnormality Reference (Units ) Status WBC, Total 01/10/2022 08:03:00 3.36 Below low normal 4. 00-10.80 (K/uL) Final RBC 01/10/2022 08:03:00 2.66 Below low normal 3.8 5-5.15 (M/uL) Final Hemoglobin 01/10/2022 08:03:00 8.9 Below low normal 12 .0-15.3 (g/dL) Final HCT 01/10/2022 08:03:00 28.2 Below low normal 36. 0-45.2 (%) Final MCV 01/10/2022 08:03:00 106.0 Above high normal 81 .5-97.5 (fL) Final MCH 01/10/2022 08:03:00 33.5 27.0-34.0 (pg) Final MCHC 01/10/2022 08:03:00 31.6 Below low normal 32. 0-36.0 (g/dL) Final RDW 01/10/2022 08:03:00 23.5 Above high normal 11 .5-15.5 (%) Final Platelets 01/10/2022 08:03:00 59 Below low normal 140 -400 (K/uL) Final MPV 01/10/2022 08:03:00 Final Performing Location [facility] [address] [place] [address]
--- OUTSIDE RECORDS SUMMARY | 2023-05-10 18:57 | External Medical Summary ---
Author Name Unknown Address Unknown Organization K01:LABORATORY [facility] [place] - [address] [place] [address] Laboratory Report Ordering Provider Test Date Status JACOB CORBETT 01/10/2022 08:03:00 Final Observation Date Value Abnormality Reference (Units ) Status Iron 01/10/2022 08:03:00 49 33-151 (ug /dL) Final Iron-binding capacity 01/10/2022 08:03:00 268 250-425 (ug/dL) Final Transferrin Sat % 01/10/2022 08:03:00 18 15 -55 (%) Final Performing Location LAB[facility]ORY [facility] [place] - [address] [place] [address]
--- OUTSIDE RECORDS SUMMARY | 2023-05-10 18:57 | External Medical Summary ---
Author Name Unknown Address Unknown Organization K0G:LABORATORY [place] [address] [place] [id number] Laboratory Report Ordering Provider Test Date Status JACOB CORBETT 01/10/2022 08:03:00 Final Observation Date Value Abnormality Reference (Units ) Status Nucleated erythrocytes/100 leukocytes [Ratio] in Blood by Automated count 01/10/2022 08:03:00 Final Anisocytosis [Presence] in Blood by Light microscopy 01/10/2022 08:03:00 Moderate Abnormal None Seen Final Elliptocytes [Presence] in Blood by Light microscopy 01/10/2022 08:03:00 Few Abnormal None Seen Final Hypochromia [Presence] in Blood by Light microscopy 01/10/2022 08:03:00 Slight Abnormal None Seen Final Macrocytes [Presence] in Blood by Light microscopy 01/10/2022 08:03:00 Present Abnormal None Seen Final Schistocytes 01/10/2022 08:03:00 Few Abnormal None Seen Final Dacrocytes [Presence] in Blood by Light microscopy 01/10/2022 08:03:00 Few Abnormal None Seen Final Giant platelets [Presence] in Blood by Light microscopy 01/10/2022 08:03:00 Present Abnormal None Seen Final Performing Location LAB[facility]ORY [facility] [address] [place] [address]
--- OUTSIDE RECORDS SUMMARY | 2023-05-10 18:58 | External Medical Summary | Summary of Care ---
Author Name Unknown Organization [facility] Address [place] [address] Care Team Providers Care Hand Fretted Instrument Maker Name Role Phone Vanita Dunn MD Primary Care Provid er Reason for Visit * Reason Onset Date Comments Acute Problem Follow Up 01/01/2022 Encounter Details Date Type Department Care Team Description 01/01/2022 Scheduled Telephone [facility], [facility] 132 [facility] [place] [address] [facility] 132 [facility] [place] [address] 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 documented as of this encounter (statuses as of 01/01/2022) Medications Medication Sig Dispensed Refills Start Date End Date Status albuterol sulfate (PROVENTIL) (2.5 MG/3ML) 0.083% nebulizer solutionIndications: Pulmonary vascular congestion Inhale 1 Vial via nebulizer every 6 hours as needed for Wheezing. 120 Vial 11 10/02/2019 Active Additional Information Patient not taking. Informant: Pharmacy, Reported on 12/27/2021 nystatin (NYSTOP) [id number] UNIT/GM powder Apply topically to affected area [...] Informant: Pharmacy, Reported on 12/27/2021 Dexcom G6 Forge Operator Helper Device Use as directed. To [...] Strip 3 10/29/2020 Active OneTouch Delica Plus [id number] TESTING once daily 100 Each 3 10/29/2020 [...] night at bedtime . 0 11/13/2021 Active Mupirocin 2 % External Ointment (Bactroban)Indicatio ns:Folliculitis Apply topically to affected area 3 times a day for 14 days. To affected area for up to 14 days. 22 g 1 12/18/2021 Active Additional Information Patient not taking. Reported on 12/27/2021 Potassium Chloride ER 10 MEQ Oral Tablet Extended ReleaseIndications:H ypokalemia Take by mouth 1 Tablet in the morning. With food.. 90 Tablet 3 12/21/2021 Active documented as of this encounter (statuses as of 01/01/2022) Active Problems Problem Noted Date Food insecurity 09/20/2021 Overview: Per [employer] Pharmacy Protocol Chronic diastolic (congestive) heart [...] as of this encounter (statuses as of 01/01/2022) Resolved Problems Problem Noted Date Resolved Date [...] pain 01/24/2012 01/17/2017 Genetic Sleep Disorder Research Other*[id number] 05/13/2011 04/07/2016 Obstructive sleep apnea 01/18/2011 12/27/19 [...] as of this encounter (statuses as of 01/01/2022) Immunizations Name Administration Dates Next Due COVID-19 [...] Influenza, Split, I IV3, With Preserve, Inj 05/22/2015,05/29/2014,07/25/2013,05/12,06/02/2011,06/01/2010,09,08/18/2008 05/22/2016 TDAP (age 10 and older)(Boostrix) 05/01/2017 [...] encounter Miscellaneous Notes * Telephone Encounter - Brigid Yu RN - 01/01/2022 2:04 PM EDT TRIAGE Pt called [facility] to report that she has not had a good BM for about five days and was previously told by [facility] home to call for an enema. Patient is on Lactulose BID w/ a goal titration of 3-5 BM per day for NG reports she had scant BM at the rectum today when he wiped her. She did not have Lactulose yesterday. He thinks he may have forgotten to give her this on Monday. Denies any other missed doses. No confusion. Mentation at baseline. Has some intermittent abdominal cramping. No severe abdominal pain. No nausea or vomiting. Had 60 ml Lactulose today. She recently (12/27/21) had anesthesia, underwent HYSTEROSCOPY WITH BIOPSY AND/OR POLYPECTOMY WITH OR WITHOUT D&C on Monday. She does not suffer from chronic constipation. DW Dr. Juarez. Has dulcolax in home. Will take one now. Advise to ensure she is drinking at least 32-48 oz daily. F/u pc tomorrow. documented in this encounter Plan of Treatment Upcoming Encounters Date Type Specialty Care Team Description 01/02/2022 Scheduled Telephone [facility], Nurse [address] [address] 01/04/2022 Hem/Onc Treatment Hematology Oncology [place], Chair [address] [address] 01/04/2022 Office Visit Hematology Oncology Tono Sanchez MD [address] [place] [address] 01/10/2022 Laboratory Laboratory Processing [facility], [facility] Mobile Home Draw [address] [place], [place] [phone] 01/11/2022 Office Visit Gynecology Obstetrics Concetta Khan MD [address] [place], [place] [phone] 01/13/2022 Home Visit Family Medicine Kaylee Barakat, [facility] Heel Emery Buffer [address] [place] [address] 01/24/2022 Laboratory Laboratory Processing [facility] Mobile Home Draw [address] [place] [address] 01/27/2022 Office Visit Pharmacy [address] [address] 01/28/2022 Hem/Onc Treatment Hematology Oncology Maryellen, Chair 1 Hem Onc Scenery 200 [facility] [place] [address] 02/01/2022 Home Visit [facility] July Poe RN [address] [place] [address] 02/07/2022 Laboratory Laboratory Processing [facility] Mobile Home Draw [address] [place] [address] 02/18/2022 Hem/Onc Treatment Hematology Oncology [place], Chair 1 Hem Onc [address]enery [address] [place] [address] 02/21/2022 Laboratory Laboratory Processing [facility] Mobile Home Draw [address] [place] [address] 03/07/2022 Laboratory Laboratory Processing [facility] Mobile Home Draw [address] [place] [address] 03/11/2022 Hem/Onc Treatment Hematology Oncology [place], Chair 1 Hem Onc Scenery [address] [place], [place] [address] 03/24/2022 Office Visit Pulmonary Reynaldo Marquez MD [address] [place] [address] 04/01/2022 Hem/Onc Treatment Hematology Oncology [place], Chair 1 Hem Onc Scenery [address] [place] [address] 04/22/2022 Hem/Onc Treatment Hematology Oncology [place], Chair 1 Hem Onc [address]enery [address] [place], [place] [address] 04/26/2022 Telemedicine Endocrinology Alberta Duque PA-C [address] [place], [place] [phone] 04/28/2022 Office Visit Gastroenterology Lyssa Stout CRNP 132 [facility] [place] [address] 05/05/2022 Office Visit Cardiology Quyen Canseco CRNP 132 [facility] [place] [address] 06/24/2022 Office Visit Sleep Disorders Love Francisco DO 132 [facility] [place] [address] Scheduled Procedures Name Priority Associated Diagnoses Date/Ti [...] of this encounter Implants Implanted Type Area Biomathematician Device Identifier Shelf Expiration Date Model / Serial / Lot Microtech Sure Clip Implanted:Qty: 2 on 06/03/2020 by Janis Hatch DO at OR [facility] Clip N/A: Colon [facility]20[facility] / / [id number] documented as of this encounter Advance Directives Documents on File Type Date Recorded Patient Tire Layer 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 AND HEALTH CARE POA Power of Retail Zone Specialist 04/29/2021 12:00 AM TOM R OF [facility] POA Advanced Directive 04/01/2021 1:14 [...] Bustos Spouse Emergency Contact Care Teams Hand Fretted Instrument Maker Relationship Specialty Start Date End Date Vanita Dunn MD [address] [place], [place] [phone] PCP - General Family Medicine 03/16/21 documented as of this encounter
--- OUTSIDE RECORDS SUMMARY | 2023-05-10 18:58 | External Medical Summary | Summary of Care ---
Author Name Unknown Organization [facility] Address [place] [address] Care Team Providers Care Bench Molder Name Role Phone Vanita Dunn MD Primary Care Provid er Reason for Visit * Reason Onset Date Comments [facility]: Maintenance 01/02/2022 Encounter Details Date Type Department Care Team Description 01/02/2022 Scheduled Telephone [facility], [facility] 132 [facility] [place] [address] [facility], Nurse [facility] 132 [facility] [place] [address] 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 documented as of this encounter (statuses as of 01/02/2022) Medications Medication Sig Dispensed Refills Start Date End Date Status albuterol sulfate (PROVENTIL) (2.5 MG/3ML) 0.083% nebulizer solutionIndications: Pulmonary vascular congestion Inhale 1 Vial via nebulizer every 6 hours as needed for Wheezing. 120 Vial 11 10/02/2019 Active Additional Information Patient not taking. Informant: Pharmacy, Reported on 12/27/2021 nystatin (NYSTOP) [id number] UNIT/GM powder Apply topically to affected area [...] Informant: Pharmacy, Reported on 12/27/2021 Dexcom G6 Addresser Device Use as directed. To test blood [...] Strip 3 10/29/2020 Active OneTouch Delica Plus [id number] TESTING once daily 100 Each 3 10/29/2020 [...] as of this encounter (statuses as of 01/02/2022) Active Problems Problem Noted Date Food insecurity 09/20/2021 Overview: Per [employer] Pharmacy Protocol Chronic diastolic (congestive) heart [...] as of this encounter (statuses as of 01/02/2022) Resolved Problems Problem Noted Date Resolved Date [...] pain 01/24/2012 01/17/2017 Genetic Sleep Disorder Research Other*[id number] 05/13/2011 04/07/2016 Obstructive sleep apnea 01/18/2011 12/27/19 [...] as of this encounter (statuses as of 01/02/2022) Immunizations Name Administration Dates Next Due COVID-19 [...] Telephone Encounter - July Poe RN - 01/02/2022 11:07 AM EDT TC to patient for f/u on constipation Spoke with pt and . Pt reports she had 3 large bowel movements since yesterday. States she feels fine today. Still has intermittent vaginal bleeding - "not a lot, just a little bit" Will continue to monitor - has gyne f/u next week. If does not improve this week will notify gyne. Encouraged to call if worsens or any other concerns arise. Verbalizes understanding. documented in this encounter Plan of Treatment Upcoming Encounters Date Type Specialty Care Team Description 01/04/2022 Hem/Onc Treatment Hematology Oncology [place], Chair 6 Hem Onc [facility] [address] [place] [address] 01/04/2022 Office Visit Hematology Oncology Tono Sanchez MD [address] [place] [address] 01/10/2022 Laboratory Laboratory Processing [facility], [facility] Mobile Home Draw [address] [place] [address] 01/11/2022 Office Visit Gynecology Obstetrics Concetta Khan MD [address] [place], [place] [phone] 01/13/2022 Home Visit Family Medicine Kaylee Barakat, [facility] Java Groovy Developer [address] [place] [address] 01/24/2022 Laboratory Laboratory Processing [facility], [facility] Mobile Home Draw [address] [place] [address] 01/27/2022 Office Visit Pharmacy [facility] [address] [place] [id number] 01/28/2022 Hem/Onc Treatment Hematology Oncology [place], Chair 1 Hem Onc [facility] [address] [place] [address] 02/01/2022 [facility] July Poe, RN 132 [place] [address] 02/07/2022 Laboratory Laboratory Processing [facility], [facility] Mobile Home Draw [address] [place] [address] 02/18/2022 Hem/Onc Treatment Hematology Oncology [place], Chair 1 Hem Onc Scenery [address] [place] [address] 02/21/2022 Laboratory Laboratory Processing [facility] Mobile Home Draw [address] [place], [place] [address] 03/07/2022 Laboratory Laboratory Processing [facility] Mobile Home Draw [address] [place] [address] 03/11/2022 Hem/Onc Treatment Hematology Oncology [place], Chair 1 Hem Onc Scenery [address] [facility] [place] [address] 03/24/2022 Office Visit Reynaldo Marks MD [address] [facility] [place] [phone] 04/01/2022 Hem/Onc Treatment Hematology Oncology [place], Chair 1 Hem Onc Scenery [address] [place] [address] 04/22/2022 Hem/Onc Treatment Hematology Oncology [place], Chair 1 Hem Onc Scenery [address] [place] [address] 04/26/2022 Telemedicine Endocrinology Alberta Duque PA-C [address] [place], [place] [phone] 04/28/2022 Office Visit Gastroenterology Lyssa Stout CRNP [address] [place] [address] 05/05/2022 Office Visit Cardiology Quyen Canseco CRNP [address] [place] [address] 06/24/2022 Office Visit Sleep Disorders Love Francisco DO [address] [place] [address] Scheduled Procedures Name Priority Associated Diagnoses Date/Ti [...] of this encounter Implants Implanted Type Area Service Manager Device Identifier Shelf Expiration Date Model / Serial / Lot Microtech Sure Clip Implanted:Qty: 2 on 06/03/2020 by Janis Hatch DO at OR [facility] Clip N/A: Colon 04/21/2022 [facility]-F-26-2 35-C-R / / [id number] documented as of this encounter Advance Directives Documents on File Type Date Recorded Patient Supervisor Sewing Department 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 WILL AND HEALTH CARE POA Power of Handkerchief Sample Clerk 04/29/2021 12:00 AM TOM R OF [employer]OOK[employer]ORE MANAGER HEALTH CARE POA Advanced Directive 04/01/2021 [...] File Name Relationship Healthcare Agent [facility] Communication Syed Bustos Spouse Emergency Contact Care Teams Bench Molder Relationship Specialty Start Date End Date Vanita Dunn MD [address] [place], [place] [phone] PCP - General Family Medicine 03/16/21 documented as of this encounter
--- OUTSIDE RECORDS SUMMARY | 2023-05-10 18:58 | External Medical Summary | Summary of Care ---
Author Name Unknown Organization [place] [address] Care Team Providers Care Body Press Operator Name Role Phone Vanita Dunn MD Primary Care Provid er Reason for Visit * Reason Comments [facility]: Maintenance Encounter Details Date Type Department Care Team Description 12/29/2021 Home Visit [facility], [facility] [address] [facility] [place] [address] July Poe, RN [address] [facility] [place] [address] 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 documented as of this encounter (statuses as of 01/03/2022) Medications Medication Sig Dispensed Refills Start Date End Date Status albuterol sulfate (PROVENTIL) (2.5 MG/3ML) 0.083% nebulizer solutionIndications: Pulmonary vascular congestion Inhale 1 Vial via nebulizer every 6 hours as needed for Wheezing. 120 Vial 11 10/02/2019 Active Additional Information Patient not taking. Informant: Pharmacy, Reported on 12/27/2021 nystatin (NYSTOP) [id number] UNIT/GM powder Apply topically to affected area [...] Informant: Pharmacy, Reported on 12/27/2021 Dexcom G6 Second Baker Device Use as directed. To test blood [...] Strip 3 10/29/2020 Active OneTouch Delica Plus [id number] TESTING once daily 100 Each 3 10/29/2020 [...] With food.. 90 Tablet 3 12/21/2021 Active Mupirocin 2 % External Ointment (Bactroban)Indicatio ns:Folliculitis Apply topically to affected area 3 times a day for 14 days. To affected area for up to 14 days. 22 g 1 12/18/2021 Additional Information Patient not taking. 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 05/13/2011 04/07/2016 Obstructive sleep apnea 01/18/2011 12/27/19 [...] as of this encounter (statuses as of 01/03/2022) Immunizations Name Administration Dates Next Due COVID-19 [...] Reading Time Taken Comments Blood Pressure 104/60 12/29/2021 3:09 PM EDT Pulse 60 12/29/2021 3:09 PM EDT Temperature 37.3 C (99.1 F) 12/29/2021 3:09 PM ED T Respiratory Rate 18 12/29/2021 3:09 PM EDT Oxygen Saturation 97% 12/29/2021 3:09 PM EDT Inhaled Oxygen Concentration - - [...] Progress Notes * July Poe RN - 12/29/2021 3:03 PM EDT [facility] Counsel[facility] Manager Visit Date: 12/29/2021 Time: 3:03 PM Name: Shaina Bustos : 1955 Current Concerns: Pt seen for return RNCM visit Had hysteroscopy done at [facility] two days ago - still having some mild abdominal pain Wears Dexcom - has been ranging 80's to high 200's Followed by [facility] Last bowel movement was Monday morning reports they ran out of lactulose this am - going to sweet pickled fruit maker the refill today Advised that he should be giving twice daily, but may need to give 3-4 times a day to increase bowel movement to 3-5 a day He reports he will start doing this once he gets refill tonight - only had enough to give twice a day Also will give dulcolax if no bm today Physical Exam: BP 104/60 | Pulse 60 | Temp 37.3 C (99.1 F) | Resp 18 | SpO2 97% Pain 3 Physical Exam Constitutional: General: She is not in acute distress. Appearance: She is obese. HENT: Nose: Nose [...] Positive for leg swelling. Gastrointestinal: Positive for constipation. Endocrine: Negative. Genitourinary: Positive for vaginal bleeding (MILD). Musculoskeletal: Positive for arthralgias and gait problem (non-ambulatory). Skin: Negative. Psychiatric/Behavioral: Negative. Medication Reconciliation: (See medication list) Does patient take medications as ordered: Yes Patient Well Being: PHQ2/9: No questionnaires available. No change in living situation. No falls - nonambulatory- uses svetlana lift [facility]-10 Completed this Visit: No. Routine visit and No falls since last visit Advanced Care Planning: Living Will. and Healthcare POA. Patient's Goals of Care: 1. Attend son's wedding in February 2. Feel good 3. Find out what vaginal bleeding is from Reinforcement/Education: Educated on home safety: Create a fall proof home o Clear floors of clutter, loose wires, throw rugs, and cords. o Make sure halls, stairways, and entrances are well lit. o Install a nightlight in your bedroom, hallway and bathroom. o Install grab bars or handrails in the bathroom and on stairs. o Use a non-skid tub/shower mat. o Avoid climbing on a chair; instead use a step stool with a high handrail. o Keep sidewalks and steps in good repair o Keep steps and sidewalks free of snow and ice. Using aids to support and prevent falls o If you have poor balance or have fallen in the past, consider additional support such as a cane or walker. o Use a cane with good support and that is the proper length for you. o Use a walker if a cane doesnt provide enough support. Avoid medications that increase the risk of falling by causing dizziness, change in sensation or slowed reflexes. o Certain medicines may cause falls blood pressure pills, heart medicines, water pills, or sleeping pills. o Be sure to understand each medicine that you are taking and any side effects that may occur. Improve your balance and flexibility with muscle strengthening exercises. Ask your health care provider for some exercises that will be right for you. 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 Increased SOB 2. Change in mental status 3. bsg <80 or >300 Patient Needs to Remember: Call [facility] [...] emergent issues. Is the patient new to [facility] [employer] [facility] within the last 30 days? No, Assess appropriateness for upcoming telehealth visits. Cancel telehealth visits & schedule home visit with care warehouse team member(s)as indicated. Provider is in agreement with Plan of Care: Yes Scheduled to follow up with patient in 3 weeks with EMILE and 3 weeks after with KATELYN. July Poe RN 12/29/2021 3:03 PM documented in this encounter Plan of Treatment Upcoming Encounters Date Type Specialty Care Team Description 01/04/2022 Hem/Onc Treatment Hematology Oncology Maryellen, Chair [address] [place] [address] 01/04/2022 Office Visit Hematology Oncology Tono Sanchez MD [address] [place] [address] 01/10/2022 Laboratory Laboratory Processing [facility] [place] Draw [address] [place] [address] 01/11/2022 Office Visit Gynecology Obstetrics Concetta Khan MD [address] [place], [place] [phone] 01/13/2022 Home Visit Family Medicine Kaylee Barakat, Community Health Chief Projectionist [address] [place] [address] 01/24/2022 Laboratory Laboratory Processing [facility] [place] Draw [address] [place] [address] 01/27/2022 Office Visit Pharmacy [facility] [address] [place] [address] 01/28/2022 Hem/Onc Treatment Hematology Oncology Maryellen, Chair 1 Hem Onc [address] [place] [address] 02/01/2022 [facility] Visit [facility] [address] 02/07/2022 Laboratory Laboratory Processing [facility] [place] Draw [address] [place] [address] 02/18/2022 Hem/Onc Treatment Hematology Oncology [place], Chair 1 Hem Onc Scenery [address] [place] [address] 02/21/2022 Laboratory Laboratory Processing [facility] [place] Draw [address], [place] [id number] 03/07/2022 Laboratory Laboratory Processing [facility] [place] Draw [address], [place] [id number] 03/11/2022 Hem/Onc Treatment Hematology Oncology [place], Chair 1 Hem Onc Sc[address]ery [address] [place] [address] 03/24/2022 Office Visit Pulmonary Reynaldo Marquez MD [address] [facility] [place] [id number] 04/01/2022 Hem/Onc Treatment Hematology Oncology [place], Chair 1 Hem Onc Scenery [address] [facility] [address] 04/22/2022 Hem/Onc Treatment Hematology Oncology [place], Chair 1 Hem Onc Sc[address]ery [address] [place] [address] 04/26/2022 Telemedicine Endocrinology Alberta Duque PA-C [address], [place] [phone] 04/28/2022 Office Visit Gastroenterology Lyssa Stout CRNP [address] [place] [address] 05/05/2022 Office Visit Cardiology Quyen Canseco CRNP [address] [place] [address] 06/24/2022 Office Visit Sleep Disorders Love FranciscoareDO corona [address] [place] [address] Scheduled Procedures Name Priority Associated Diagnoses Date/Ti [...] of this encounter Implants Implanted Type Area Tripe Washer Device Identifier Shelf Expiration Date Model / Serial / Lot Microtech Sure Clip Implanted:Qty: 2 on 06/03/2020 by Janis Hatch DO at OR [facility] Clip N/A: Colon 04/21/2022 [facility]-F-26-2 35-C-R / / [id number] documented as of this encounter Advance Directives Documents on File Type Date Recorded Patient Seismographer 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 AND HEALTH CARE POA Power of Returned Case Inspector 04/29/2021 12:00 AM TOM R OF [employer] ASSOCIATE ATTORNEY HEALTH CARE POA Advanced Directive 04/01/2021 1:14 [...] Syed Bustos Spouse Emergency Contact Care Teams Body Press Operator Relationship Specialty Start Date End Date Vanita Dunn MD [address] [place] [address] PCP - General Family Medicine 03/16/21 documented as of this encounter"
--- OUTSIDE RECORDS SUMMARY | 2023-05-10 18:59 | External Medical Summary ---
Author Name Unknown Address Unknown Organization [facility] [address] [place] [address] Laboratory Report Ordering Provider Test Date Status JACOB CORBETT 12/27/2021 09:56:00 Final Observation Date Value Abnormality Reference (Units ) Status Nucleated erythrocytes/100 leukocytes [Ratio] in Blood by Automated count 12/27/2021 09:56:00 Final Anisocytosis [Presence] in Blood by Light microscopy 12/27/2021 09:56:00 Moderate Abnormal None Seen Final Elliptocytes [Presence] in Blood by Light microscopy 12/27/2021 09:56:00 Few Abnormal None Seen Final Hypochromia [Presence] in Blood by Light microscopy 12/27/2021 09:56:00 Slight Abnormal None Seen Final Schistocytes 12/27/2021 09:56:00 Few Abnormal None Seen Final Dacrocytes [Presence] in Blood by Light microscopy 12/27/2021 09:56:00 Few Abnormal None Seen Final Giant platelets [Presence] in Blood by Light microscopy 12/27/2021 09:56:00 Present Abnormal None Seen Final Performing Location [facility] [place] [address] [place] [address]
--- OUTSIDE RECORDS SUMMARY | 2023-05-10 18:59 | External Medical Summary | Summary of Care ---
Author Name Unknown Organization [facility] Address [place] [address] Care Team Providers Care Jack Spinner Name Role Phone Vanita Dunn MD Primary Care Provid er Encounter Details Date Type Department Care Team Description 12/28/2021 Orders Only [facility] [address] [place] [address] Vanita Dunn MD [address] [place] [address] 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 documented as of this encounter (statuses as of 12/28/2021) Medications Medication Sig Dispensed Refills Start Date End Date Status albuterol sulfate (PROVENTIL) (2.5 MG/3ML) 0.083% nebulizer solutionIndications: Pulmonary vascular congestion Inhale 1 Vial via nebulizer every 6 hours as needed for Wheezing. 120 Vial 11 10/02/2019 Active Additional Information Patient not taking. Informant: Pharmacy, Reported on 12/27/2021 nystatin (NYSTOP) [id number] UNIT/GM powder Apply topically to affected area [...] Informant: Pharmacy, Reported on 12/27/2021 Dexcom G6 Product Marketing Intern Device Use as directed. To [...] Strip 3 10/29/2020 Active OneTouch Delica Plus [id number] TESTING once daily 100 Each 3 10/29/2020 [...] as of this encounter (statuses as of 12/28/2021) Active Problems Problem Noted Date Food insecurity 09/20/2021 Overview: Per [facility] Protocol Chronic diastolic (congestive) heart [...] as of this encounter (statuses as of 12/28/2021) Resolved Problems Problem Noted Date Resolved Date [...] pain 01/24/2012 01/17/2017 Genetic Sleep Disorder Research Other*[id number] 05/13/2011 04/07/2016 Obstructive sleep apnea 01/18/2011 12/27/19 [...] as of this encounter (statuses as of 12/28/2021) Immunizations Name Administration Dates Next Due COVID-19 [...] Encounters Date Type Specialty Care Team Description 12/29/2021 Home Visit [facility] Bebe Morales, RN [address] [place] [address] 01/04/2022 Hem/Onc Treatment Hematology Oncology Maryellen, Chair 6 Hem Onc Scenery [address] [place] [address] 01/04/2022 Office Visit Hematology Oncology Tono Sanchez MD [address] [place] [address] 01/10/2022 Laboratory Laboratory Processing [facility] [place] Draw [address] [place] [address] 01/11/2022 Office Visit Gynecology Obstetrics Concetta Khan MD [address] [place], [place] [phone] 01/13/2022 Home Visit Family Medicine Kaylee Barakat, Community Health Aquatic Physiotherapist [address] [place] [address] 01/24/2022 Laboratory Laboratory Processing c, [facility] [place] Draw [address] [place] [address] 01/27/2022 Office Visit Pharmacy [facility] [address] [place] [address] 01/28/2022 Hem/Onc Treatment Hematology Oncology Maryellen, Chair 1 Hem Onc Scenery [address] [facility] [address] 02/07/2022 Laboratory Laboratory [facility] [place] Draw [address] [place] [address] 02/18/2022 Hem/Onc Treatment Hematology Oncology [place], Chair 1 Hem Onc Scenery [address] [place] [address] 02/21/2022 Laboratory Laboratory Processing [facility] [place] Draw [address] [place] [address] 03/07/2022 Laboratory Laboratory Processing [facility] [place] Draw [address] [place] [address] 03/11/2022 Hem/Onc Treatment Hematology Oncology [place], Chair 1 Hem Onc Sc[address]ery [address] [place] [address] 03/24/2022 Office Visit Pulmonary Reynaldo Marquez MD [address] [place] [address] 04/01/2022 Hem/Onc Treatment Hematology Oncology [place], Chair 1 Hem Onc Scenery [address] [place] [address] 04/22/2022 Hem/Onc Treatment Hematology Oncology [place], Chair 1 Hem Onc Sc[address]ery [address] [place] [address] 04/26/2022 Telemedicine Endocrinology [place] Duque PA-C [address] [place] [address] 04/28/2022 Office Visit Gastroenterology Lyssa Stout CRNP [address] [facility] [place] [address] 05/05/2022 Office Visit Cardiology Quyen Canseco CRNP [address] [facility] [address] 06/24/2022 Office Visit Sleep Disorders Love Francisco, DO [address] [facility] [place] [address] Scheduled Procedures Name Priority Associated Diagnoses Date/Ti [...] BASIC METABOLIC PANEL (BMP) FOR HTN YEARLY 12/28/2022 12/20/2021, 12/18/2021, 09/23/2021, Additional history exists COLONOSCOPY-EVERY [...] of this encounter Implants Implanted Type Area Rest Room Attendant Device Identifier Shelf Expiration Date Model / Serial / Lot Microtech Sure Clip Implanted:Qty: 2 on 06/03/2020 by Janis Hatch DO at OR [facility] Clip N/A: Colon 04/21/2022 [facility]-F-26-2 35-C-R / / [id number] documented as of this encounter Procedures Procedure Name Priority Date/Time Associated Diagnosis Comments CHEMISTRY-OUTSIDE Routine 12/18/2021 documented in this encounter Results * (ABNORMAL) CHEMISTRY-OUTSIDE (12/18/2021) CREATININE-OUTSIDE LAB 0.72 0.6 - 1.2 MG/DL OUTSIDE LAB (SEE SCANNED REPORT) EGFR-OUTSIDE LAB 87.3 >=60ML/MIN OUTSIDE LAB (SEE SCANNED REPORT) POTASSIUM-OUTSIDE LAB 4.3 3.5 - 5.1 MMOL/L OUTSIDE LAB (SEE SCANNED REPORT) GLUCOSE-OUTSIDE LAB 133(A) 70 - 99 MG/DL OUTSIDE LAB (SEE SCANNED REPORT) HOURS FASTING OUTSIDE LAB (S EE SCANNED REPORT) TRIGLYCERIDES-OUTSIDE LAB OUTSIDE LAB (SEE SCANNED REPORT) CHOLESTEROL-OUTSIDE LAB OUTSIDE LAB (SEE SCANNED REPORT) HDL-OUTSIDE LAB OUTSIDE LAB (SEE SCANNED REPORT) CHOL/HDL RATIO-OUTSIDE LAB OUTSIDE LAB (SEE SCANNED REPORT) LDL (CALCULATED)-OUTSIDE LAB OUTSIDE LAB (SEE SCANNED REPORT) LDL (DIRECT MEASURE)-OUTSIDE LAB OUTSIDE LAB (SEE SCANNED REPORT) HEMOGLOBIN, J2A-SHADDDK LAB OUTSIDE LAB (SEE SCANNED REPORT) PHOSPHORUS-OUTSIDE LAB OUTSIDE LAB (SEE SCANNED REPORT) PTH-OUTSIDE LAB OUTSIDE LAB (SEE SCANNED REPORT) MICROALBUMIN RATIO-OUTSIDE LAB OUTSIDE LAB (SEE SCANNED REPORT) PROTEIN, UA-OUTSIDE LAB OUTSIDE LAB (SEE SCANNED REPORT) HEMOGLOBIN-OUTSIDE LAB 10.7(A) 12 - 15 G/DL OUTSIDE LAB (SEE SCANNED REPORT) CHEMISTRY COMMENT-OUTSIDE LAB Comment:SEE SCAN O/P: CBCD-CMP OUTSIDE LAB (SEE SCANNED REPORT) Specimen Narrative Performing Organization Address City/State/[facility] Co de Phone Number OUTSIDE LAB (SEE SCANNED REPORT) documented in this encounter Advance Directives Documents on File Type Date Recorded Patient Torpedo Specialist 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 LIVING WILL AND HEALTH CARE POA [employer] [place] 04/29/2021 12:00 AM TOM R [employer] [facility] POA Advanced Directive 04/01/2021 1:14 PM Advanced [...] File Name Relationship Healthcare [facility] Syed Bustos Spouse Emergency Contact Care Teams Jack Spinner Relationship Specialty Start Date End Date Vanita Dunn MD [address] [place] [address] PCP - General Family Medicine 03/16/21 documented as of this encounter
--- OUTSIDE RECORDS SUMMARY | 2023-05-10 18:59 | External Medical Summary | Summary of Care ---
Author Name Unknown Organization [place] [address] Care Team Providers Care Chemical Process Operator Name Role Phone Vanita Dunn MD Primary Care Provid er Reason for Visit * Reason Onset Date Comments COVID-19 Screening 12/26/2021 Encounter Details Date Type Department Care Team Description 12/26/2021 Telephone COVID19 Screening 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 120 Vial 11 10/02/2019 Active nystatin (NYSTOP) 777014 UNIT/GM powder Apply topically to affected area 3 times a day. 60 g 1 10/16/2019 Active Albuterol Sulfate (ALBUTEROL HFA) 108 (90 BASE) MCG/ACT inhalerIndications:I ntermittent asthma with reliever use up to twice per week without complication Inhale 2 Puffs by mouth every 4 hours as needed for Cough or Wheezing. With spacer 16 g 1 11/06/2019 Active Ipratropium-Albutero l 0.5-2.5 (3) MG/3ML Inhalation Solution (DUONEB)Indications: Moderate persistent asthma with acute exacerbation Inhale 3 mL via nebulizer 4 times a day. 3 mL 10 07/27/2020 Active Additional Information Patient taking differently: 3 mL Nebulizer QID PRN, Shortness of Breath, Informant: Pharmacy, Reported on 02/04/2021 Dexcom G6 Manager Perioperative Device Use as directed. To test blood [...] TO ACCESSING. 30 g 3 10/09/2020 Active OneTouch Verio In Vitro Strip (Glucose Blood) TESTING once daily 100 Strip 3 10/29/2020 Active OneTouch Delica Plus [id number] TESTING once daily 100 Each 3 10/29/2020 [...] ONCE DAILY 30 Tablet 5 08/30/2021 Active Additional Information Patient not taking. Reported on 12/23/2021 Atorvastatin Calcium 80 MG Oral Tablet (Lipitor) [...] to 14 days. 22 g 1 12/18/2021 2 Active Potassium Chloride ER 10 MEQ Oral Tablet Extended ReleaseIndications:H ypokalemia Take by mouth 1 Tablet in the morning. With food.. 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 Your COVID-19 from 12/25/2021 00:00:00 results are negative. This means you are NOT infected with coronavirus 19. If your cold/flu symptoms last longer than 7 days or get worse, contact your primary care physician. If you don't have a primary care physician, go to the nearest [facility] or urgent care clinic. To establish care with a [employer] provider, please call [phone]. Practice social distancing and good hand hygiene to keep yourself and others safe. Your results are also available for your reference in your [employer] account under 'Test & Lab Results.' If you are not enrolled in [employer], you can create an account by going to [email or web address]. You will also receive a letter in the mail with your results. If you are a [employer] staff member or employee, when you receive your result, please call [employer] between 7 a.m. and 4 p.m. at [phone]. Notify them of your test results and for instructions on returning to work after your quarantine period. Press 1 if you would like to speak with a nurse, press 2 to hear this message again. documented in this encounter Plan of Treatment Upcoming Encounters Date Type Specialty Care Team Description 12/30/2021 Home Visit [facility] July Poe, RN [address] [place] [address] 01/04/2022 Hem/Onc Treatment Hematology Oncology [place], Chair [address] [address] 01/04/2022 Office Visit Hematology Oncology Tono Sanchez MD [address] [place] [address] 01/10/2022 Laboratory Laboratory Processing [facility], [facility] Mobile Home Draw [address] [place] [address] 01/11/2022 Office Visit Gynecology Obstetrics Concetta Khan MD [address] [place] [address] 01/13/2022 Home Visit Family Medicine Kaylee Barakat, Community Health Land Leasing Examiner [address] [place] [address] 01/24/2022 Laboratory [facility] Mobile Home Draw [address] [place] [address] 01/27/2022 Office Visit [address] [id number] 01/28/2022 Hem/Onc Treatment Hematology Oncology [place], Chair 1 Hem Onc Sc[address] [place], [place] [address] 02/07/2022 Laboratory Laboratory Processing [facility] Mobile Home Draw [address] [place] [address] 02/18/2022 Hem/Onc Treatment Hematology Oncology [place], Chair 1 Hem Onc Scenery [address] [place], [place] [address] 02/21/2022 Laboratory Laboratory Processing [facility] Mobile Home Draw [address] [place] [address] 03/07/2022 Laboratory Laboratory Processing [facility] Mobile Home Draw [address] [place] [address] 03/11/2022 Hem/Onc Treatment Hematology Oncology [place], Chair 1 Hem Onc Scenery [address] [place] [address] 03/24/2022 Office Visit Pulmonary Reynaldo Marquez MD [address] [place] [address] 04/01/2022 Hem/Onc Treatment Hematology Oncology [place], Chair 1 Hem Onc Scen[address] [place] [address] 04/22/2022 Hem/Onc Treatment Hematology Oncology [place], Chair 1 Hem Onc Scenery [address] [place] [address] 04/26/2022 Telemedicine Endocrinology Alberta Duque PA-C [address] [place] [address] 04/28/2022 Office Visit Gastroenterology Lyssa Stout CRNP [address] [place] [address] 05/05/2022 Office Visit Cardiology Quyen Canseco CRNP [address] [place] [address] 06/24/2022 Office Visit Sleep Disorders Love Francisco DO [address] [place] [address] Scheduled Procedures Name Priority Associated Diagnoses Date/Ti me HYSTEROSCOPY WITH BIOPSY AND /OR POLYPECTOMY WITH OR WITHOUT D&C PMB (postmenopausal bleeding) 12/27/2021 2:08 PM EDT LOOP ELECTROSURGERY EXCISION PROCEDURE PMB (postmenopausal bleeding) 12/27/2021 2:08 PM EDT ESOPHAGOGASTRODUODENOSCOPY ( EGD), FLEXIBLE, TRANSORAL, DIAGNOSTIC [...] PANEL (BMP) FOR HTN YEARLY 12/20/2022 12/20/2021, 09/23/2021, 09/14/2021, Additional history exists COLONOSCOPY-EVERY 5 YRS AGES [...] of this encounter Implants Implanted Type Area Set Designer Device Identifier Shelf Expiration Date Model / Serial / Lot Microtech Sure Clip Implanted:Qty: 2 on 06/03/2020 by Janis Hatch DO at OR [facility] Clip N/A: Colon 04/21/2022 [facility]-F-26-2 35-C-R / / [id number] documented as of this encounter Advance Directives Documents on File Type Date Recorded Patient Nurse Case Management 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 LIVING WILL AND HEALTH CARE POA Power [facility] 04/29/2021 12:00 AM TOM R [facility] POA Advanced Directive 04/01/2021 1:14 PM [...] Date Activated Date Inactivated Comments Full Code 03/31/2021 8:57 PM 04/03/2021 4:30 [...] Advance Directives occurred with: Patient Full Code 02/03/2021 10:48 PM 02/06/2021 4:44 PM This order reflects the patients wishes and were consensually agreed upon. Healthcare Agents on File Name Relationship Healthcare Agent [facility] p Communication Syed Bustos Spouse Emergency Contact Care Teams Chemical Process Operator Relationship Specialty Start Date End Date Vanita Dunn MD [address], [place] [phone] PCP - General Family Medicine 03/16/21 documented as of this encounter
--- OUTSIDE RECORDS SUMMARY | 2023-05-10 18:59 | External Medical Summary ---
Author Name Unknown Address Unknown Organization : Laboratory Report Ordering Provider Test Date Status PATRICIA FERNÁNDEZ 12/27/2021 13:21:42 Final Observation Date Value Abnormality Reference (Units ) Status Glucose Point of Care 12/27/2021 13:21:42 145 Above high normal 70-120 (mg/dL) Final Performing Location
--- OUTSIDE RECORDS SUMMARY | 2023-05-10 18:59 | External Medical Summary ---
Author Name Unknown Address Unknown Organization [id number]:[facility]ATORY [facility] [place] [address] [place] [address] Laboratory Report Ordering Provider Test Date Status JACOB CORBETT 12/27/2021 09:56:00 Final Observation Date Value Abnormality Reference (Units ) Status Iron 12/27/2021 09:56:00 154 Above high normal 33-151 (ug/dL) Final Iron-binding capacity 12/27/2021 09:56:00 249 Below low normal 250-425 (ug/dL) Final Transferrin Sat % 12/27/2021 09:56:00 62 Above high normal 15-55 (%) Final Performing Location LABORATORY [facility] [place] [address] [place] [address]
--- OUTSIDE RECORDS SUMMARY | 2023-05-10 18:59 | External Medical Summary ---
Author Name Unknown Address Unknown Organization K01:LABORATORY [facility] - [address] [place] [address] Laboratory Report Ordering Provider Test Date Status JACOB CORBETT 12/27/2021 09:56:00 Final Observation Date Value Abnormality Reference (Units ) Status Ferritin 12/27/2021 09:56:00 166 Above high normal 13 -150 (ng/mL) Final Performing Location LAB[facility]AT[facility] - [address] [place] [address]
--- OUTSIDE RECORDS SUMMARY | 2023-05-10 18:59 | External Medical Summary ---
Author Name Unknown Address Unknown Organization [id number][facility] [facility] [address] [place] [address] Laboratory Report Ordering Provider Test Date Status JACOB CORBETT 12/27/2021 09:56:00 Final Observation Date Value Abnormality Reference (Units ) Status SYNC LEUKOCYTES IN BLOOD BY AUTOMATED COUNT 12/27/2021 09:56:00 3.11 Below low normal 4.00-10.80 (K/uL) Final Segs 12/27/2021 09:56:00 55.6 40.0-75.0 (%) Final Lymphs % 12/27/2021 09:56:00 25.4 18.0-42.0 (%) Final Monos 12/27/2021 09:56:00 10.3 1.0-11.0 (%) Final Eosinophils 12/27/2021 09:56:00 8.4 Above high normal 0.0-6.0 (%) Final Basos 12/27/2021 09:56:00 0.3 0.0-2.0 (%) Final Absolute Segs 12/27/2021 09:56:00 1.73 Below low normal 1.80-7.70 (K/uL) Final Lymphs, absolute 12/27/2021 09:56:00 0.79 Below low normal 1.00-4.80 (K/ul) Final Monos, Abs 12/27/2021 09:56:00 0.32 0.00-1.10 (K/uL) Final Eos, Abs 12/27/2021 09:56:00 0.26 0.00-0.70 (K/uL) Final Basos, Abs 12/27/2021 09:56:00 0.01 0.00-0.20 (K/uL) Final Performing Location LAB[facility]ATORY [facility] [place] [address] [place] [address]
--- OUTSIDE RECORDS SUMMARY | 2023-05-10 18:59 | External Medical Summary ---
Author Name Unknown Address Unknown Organization [id number]:LABORATORY [facility] [place] [address] - [address] [place] [address] Laboratory Report Ordering Provider Test Date Status JACOB CORBETT 12/27/2021 09:56:00 Final Observation Date Value Abnormality Reference (Units ) Status WBC, Total 12/27/2021 09:56:00 3.11 Below low normal 4. 00-10.80 (K/uL) Final RBC 12/27/2021 09:56:00 3.17 Below low normal 3.8 5-5.15 (M/uL) Final Hemoglobin 12/27/2021 09:56:00 10.2 Below low normal 12 .0-15.3 (g/dL) Final HCT 12/27/2021 09:56:00 33.0 Below low normal 36. 0-45.2 (%) Final MCV 12/27/2021 09:56:00 104.1 Above high normal 81 .5-97.5 (fL) Final MCH 12/27/2021 09:56:00 32.2 27.0-34.0 (pg) Final MCHC 12/27/2021 09:56:00 30.9 Below low normal 32. 0-36.0 (g/dL) Final RDW 12/27/2021 09:56:00 23.6 Above high normal 11 .5-15.5 (%) Final Platelets 12/27/2021 09:56:00 70 Below low normal 140 -400 (K/uL) Final MPV 12/27/2021 09:56:00 Final Performing Location LABORATORY [facility] [place] [address] [place] [address]
--- OUTSIDE RECORDS SUMMARY | 2023-05-10 19:00 | External Medical Summary | Summary of Care ---
Author Name Unknown Organization [place] [address] Care Team Providers Care Pattern Ruler Name Role Phone Vanita Dunn MD Primary Care Provid er Reason for Visit * Reason Comments Outpatient Testing Encounter Details Date Type Department Care Team Description 12/25/2021 Nurse Only Pre Surg Covid Testing, [place] [address] [place] [address] [facility], Pre Surgical Covid Testing [address] [place] [address] Outpatient Testing 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 120 Vial 11 10/02/2019 Active nystatin (NYSTOP) 613668 UNIT/GM powder Apply topically to affected area [...] Informant: Pharmacy, Reported on 02/04/2021 Dexcom G6 Deployment Technician Device Use as directed. To test [...] Strip 3 10/29/2020 Active OneTouch Delica Plus [id number] TESTING once daily 100 Each 3 10/29/2020 [...] 14 days. 22 g 1 12/18/2021 Active Potassium Chloride ER 10 MEQ Oral Tablet Extended ReleaseIndications:H ypokalemia Take by mouth 1 Tablet in the morning. With food.. 90 Tablet 3 12/21/2021 Active documented as of this encounter (statuses as of 12/25/2021) Active Problems Problem Noted Date Food insecurity [...] as of this encounter (statuses as of 12/25/2021) Resolved Problems Problem Noted Date Resolved Date [...] pain 01/24/2012 01/17/2017 Genetic Sleep Disorder Research Other*[id number] 05/13/2011 04/07/2016 Obstructive sleep apnea 01/18/2011 12/27/19 [...] as of this encounter (statuses as of 12/25/2021) Immunizations Name Administration Dates Next Due COVID-19 [...] Encounters Date Type Specialty Care Team Description 12/27/2021 Laboratory Laboratory Processing [facility] [address] [facility] [address] 12/27/2021 Hospital Encounter [facility] [address] [facility] [place] [id number] 12/27/2021 Anesthesia Event Surgery Plesce, Viridiana L, RN 12/27/2021 Surgery Surgery Concetta Khan MD [address] [place] [address] HYSTEROSCOPY WITH BIOPSY AND/OR POLYPECTOMY WITH OR WITHOUT D&C 12/30/2021 Home Visit [facility] July Poe, RN [address] [place] [address] 01/04/2022 Hem/Onc Treatment Hematology Oncology [place], Chair 6 Hem Onc Scenery [address] [facility] [place] [address] 01/04/2022 Office Visit Hematology Oncology Tono Sanchez MD [address] [place] [address] 01/10/2022 Laboratory Laboratory Processing [facility], [facility] Mobile Home Draw [address] [place] [address] 01/11/2022 Office Visit Gynecology Obstetrics Concetta Khan MD [address] [place] [address] 01/13/2022 Home Visit Family Medicine Kaylee Barakat, Community Health Psychiatric Clinical Nurse Specialist [address] [place] [address] 01/24/2022 Laboratory Laboratory Processing [facility], [facility] Mobile Home Draw [address] [place] [address] 01/27/2022 Office Visit Pharmacy [address] [address] 01/28/2022 Hem/Onc Treatment Hematology Oncology [place], Chair 1 Hem Onc Scenery [address] [place] [address] 02/07/2022 Laboratory Laboratory Processing [facility], [facility] Mobile Home Draw [address] [place] [address] 02/18/2022 Hem/Onc Treatment Hematology Oncology [place], Chair 1 Hem Onc Scenery [address] [place] [address] 02/21/2022 Laboratory Laboratory Processing [facility] Mobile Home Draw [address] [place], [place] [phone] 03/07/2022 Laboratory Laboratory Processing [facility] Mobile Home Draw [address] [place] [address] 03/11/2022 Hem/Onc Treatment Hematology Oncology [place], Chair 1 Hem Onc Scenery [address] [place] [address] 03/24/2022 Office Visit Pulmonary [facility] [address] [facility] [address] 04/01/2022 Hem/Onc Treatment Hematology Oncology [place], Chair 1 Hem Onc Scenery [address] [facility] [address] 04/22/2022 Hem/Onc Treatment Hematology Oncology [place], Chair 1 Hem Onc Scenery [address] [place] [address] 04/26/2022 Telemedicine Endocrinology Alberta Duque PA-C [address] [place], [place] [phone] 04/28/2022 Office Visit Gastroenterology Lyssa Stout CRNP [address] [place] [address] 05/05/2022 Office Visit Cardiology Quyen Canseco CRNP [address] [place] [address] 06/24/2022 Office Visit Sleep Disorders Love Francisco DO [address] [place] [address] Pending Results Name Type Priority Associated Diagnoses Date /Time SARS-COV-2 (COVID-19), NAAT Lab Routine Preop testing 12/25/2021 1:29 PM EDT Scheduled Procedures Name Priority Associated Diagnoses Date/Ti ca HYSTEROSCOPY WITH BIOPSY AND /OR POLYPECTOMY WITH [...] of this encounter Implants Implanted Type Area Cancer Program Consultant Device Identifier Shelf Expiration Date Model / Serial / Lot Microtech Sure Clip Implanted:Qty: 2 on 06/03/2020 by Janis Hatch DO at OR [facility] Clip N/A: Colon 04/21/2022 [facility]-F-26-2 35-C-R / / [id number] documented as of this encounter Visit Diagnoses Diagnosis PMB (postmenopausal bleeding)- Primary Postmenopausal bleeding Preop testing Preoperative examination, unspecified PMB (postmenopausal bleeding) Postmenopausal bleeding documented in this encounter Advance Directives Documents on File Type Date Recorded Patient Chute Loader 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 WILL AND HEALTH CARE POA Power of Manual Writer 04/29/2021 12:00 AM TOM R OF [facility] O[facility] CARE POA Advanced Directive 04/01/2021 [...] Syed Bustos Spouse Emergency Contact Care Teams Pattern Ruler Relationship Specialty Start Date End Date Vanita Dunn MD [address] [place] [address] PCP - General Family Medicine 03/16/21 documented as of this encounter
--- OUTSIDE RECORDS SUMMARY | 2023-05-10 19:00 | External Medical Summary ---
Author Name Unknown Address Unknown Organization K01:[facility] [place] [address] [place] [address] Laboratory Report Ordering Provider Test Date Status PRADEEPPATRICIA 12/25/2021 13:29:35 Final Observation Date Value Abnormality Reference (Units ) Status SARS Coronavirus 2 12/25/2021 13:29:35 Negative N egative Final Performing Location LAB[facility] - [address] [place] [address]
--- OUTSIDE RECORDS SUMMARY | 2023-05-10 19:00 | External Medical Summary | Summary of Care ---
Author Name Unknown Organization [place] [address] Care Team Providers Care Signal Worker Helper Name Role Phone Vanita Dunn MD Primary Care Provid er Reason for Visit * Reason Onset Date Comments Advice 12/20/2021 Encounter Details Date Type Department Care Team Description 12/20/2021 Telephone [facility] [address] [place] [address] Vanita Dunn MD [address] [place] [address] Advice 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 documented as of this encounter (statuses as of 12/23/2021) Medications Medication Sig Dispensed Refills Start Date End Date Status albuterol sulfate (PROVENTIL) (2.5 MG/3ML) 0.083% nebulizer solutionIndications: Pulmonary vascular congestion Inhale 1 Vial via nebulizer every 6 hours as needed for Wheezing. 120 Vial 11 10/02/2019 Active nystatin (NYSTOP) 690665 UNIT/GM powder Apply topically to affected area [...] of Breath, Informant: Pharmacy, Reported on 02/04/2021 DexBrightpearl G6 Web Applications Programmer Device Use as directed. To test [...] Strip 3 10/29/2020 Active OneTouch Delica Plus [id number] TESTING once daily 100 Each 3 10/29/2020 [...] 14 days. 22 g 1 12/18/2021 Active documented as of this encounter (statuses as of 12/23/2021) Active Problems Problem Noted Date Food insecurity 09/20/2021 Overview: Per [facility] Protocol Chronic diastolic (congestive) heart jaymei lure 09/13/2021 Portal hypertensive gastropathy 03/16/20 21 [...] as of this encounter (statuses as of 12/23/2021) Resolved Problems Problem Noted Date Resolved Date [...] pain 01/24/2012 01/17/2017 Genetic Sleep Disorder Research Other*[id number] 05/13/2011 04/07/2016 Obstructive sleep apnea 01/18/2011 12/27/19 [...] as of this encounter (statuses as of 12/23/2021) Immunizations Name Administration Dates Next Due COVID-19 [...] Telephone Encounter - Vanita Dunn MD - 12/23/2021 1:55 PM EDT Reviewed with pt via phone just now. Yes cleared. AG * Telephone Encounter - THAD Frances - 12/20/2021 9:38 AM EDT Patient had a pre op clearance with Dr. Dunn on 12/15. Was told at that time Dr. Dunn would be reaching out to her to let her know if she was cleared for the surgery. Hasn't heard anything since then. documented in this encounter Plan of Treatment Upcoming Encounters Date Type Specialty Care Team Description 12/25/2021 Nurse Only Ancillary Gl, Pre Surgical Covid Testing [address] [place] [address] 12/27/2021 Laboratory Laboratory Processing [facility], [facility] Mobile Home Draw [address] [place] [address] 12/27/2021 Hospital Encounter Surgery Concetta Khan MD [address] [place], [place] [id number] 12/27/2021 Anesthesia Event Surgery Viridiana Menezes RN 12/27/2021 Surgery Surgery Concetta Khan MD [address] [place], [place] [phone] HYSTEROSCOPY WITH BIOPSY AND/OR POLYPECTOMY WITH OR WITHOUT D&C 12/30/2021 Home Visit [facility] July Poe, RN [address] [place] [address] 01/04/2022 Hem/Onc Treatment Hematology Oncology [place], Chair [address] [address] 01/04/2022 Office Visit Hematology Oncology Tono Sanchez MD [address] [place] [address] 01/10/2022 Laboratory Laboratory Processing [facility], [facility] Mobile Home Draw [address] [place] [address] 01/11/2022 Office Visit Gynecology Obstetrics Concetta Khan MD [address] [place] [id number] 01/13/2022 Home Visit Family Medicine Kaylee Barakat, Community Health Cook Soup [address] [place] [address] 01/24/2022 Laboratory Laboratory Processing [facility] Mobile Home Draw [address] [place] [address] 01/27/2022 Office Visit [address] [address] 01/28/2022 Hem/Onc Treatment Hematology [place]cology [place], Chair 1 Hem Onc Scenery [address] [place] [address] 02/07/2022 Laboratory Laboratory Processing [facility] Mobile Home Draw [address] [place] [address] 02/18/2022 Hem/Onc Treatment Hematology [place], Chair 1 Hem Onc Scenery [address] [facility] [address] 02/21/2022 Laboratory Laboratory Processing [facility] Mobile Home Draw [address] [place] [address] 03/07/2022 Laboratory Laboratory Processing [facility] Mobile Home Draw [address] [place] [address] 03/11/2022 Hem/Onc Treatment Hematology [place]cology [place], Chair 1 Hem Onc Scenery [address] [facility] [address] 03/24/2022 Office Visit Pulmonary Reynaldo Marquez MD [address] [place] [address] 04/01/2022 Hem/Onc Treatment Hematology Oncology [place], Chair 1 Hem Onc Scenery [address] [place], [place] [address] 04/22/2022 Hem/Onc Treatment Hematology Oncology [place], Chair 1 Hem Onc Scenery [address] [place], [place] [address] 04/26/2022 Telemedicine Endocrinology Alberta Duque PA-C [address] [place] [address] 04/28/2022 Office Visit Gastroenterology Lyssa Stout CRNP 132 [facility] [place] [address] 05/05/2022 Office Visit Cardiology [facility]sec[facility] [address] [facility] [place] [address] 06/24/2022 Office Visit Sleep Disorders Love Francisco DO 132 [facility] [place] [address] Scheduled Procedures Name Priority Associated Diagnoses Date/Ti [...] 07/06/2022 07/06/2021, 0710/2020, 03/21/2021, Additional history exists BREAST CANCER SCREENING [...] of this encounter Implants Implanted Type Area Thermal Cutter Hand Device Identifier Shelf Expiration Date Model / Serial / Lot Microtech Sure Clip Implanted:Qty: 2 on 06/03/2020 by Janis Hatch DO at OR [facility] Clip N/A: Colon 04/21/2022 [facility]-F-26-2 35-C-R / / [id number] documented as of this encounter Advance Directives Documents on File Type Date Recorded Patient Silviculture Teacher 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 WILL AND HEALTH CARE POA Power of Forming Operator 04/29/2021 12:00 AM TOM R [facility] POA Advanced Directive 04/01/2021 1:14 PM Advanced [...] Agents on File Name Relationship Healthcare Agent [facility] navya Communication Syed Bustos Spouse Emergency Contact Care Teams Signal Worker Helper Relationship Specialty Start Date End Date Vanita Dunn MD [address] [place] [address] PCP - General Family Medicine 03/16/21 documented as of this encounter
--- OUTSIDE RECORDS SUMMARY | 2023-05-10 19:01 | External Medical Summary | Summary of Care ---
Author Name Unknown Organization [facility] Address [place] [address] Care Team Providers Care Breaker Table Worker Name Role Phone Vanita Dunn MD Primary Care Provid er Reason for Visit * Reason Comments Follow Up 3 month return, cirr hosis of the liver, NAFLD Encounter Details Date Type Department Care Team Description 12/23/2021 Office Visit Gastroenterology, [facility] 132 [facility] [place] [address] Lyssa Stout CRNP 132 [facility] [place] [address] NAFLD (nonalcoholic fatty liver disease)*; Cirrhosis of liver without ascites, unspecified hepatic cirrhosis type (HCC); Anemia, unspecified type; Chronic constipation Allergies Active Allergy Reactions Severity Noted Date [...] 120 Vial 11 10/02/2019 Active nystatin (NYSTOP) 003037 UNIT/GM powder Apply topically to affected area [...] Informant: Pharmacy, Reported on 02/04/2021 Dexcom G6 Paper Goods Machine Set Up Operator Device Use as directed. [...] Strip 3 10/29/2020 Active OneTouch Delica Plus [id number] TESTING once daily 100 Each 3 10/29/2020 [...] pain 01/24/2012 01/17/2017 Genetic Sleep Disorder Research Other*[id number] 05/13/2011 04/07/2016 Obstructive sleep apnea 01/18/2011 12/27/19 [...] Reading Time Taken Comments Blood Pressure 120/70 12/23/2021 1:09 PM EDT Pulse 100 12/23/2021 1:09 PM EDT Temperature 36.4 C (97.5 F) 12/23/2021 1:09 PM ED T Respiratory Rate - - Oxygen Saturation 94% 12/23/2021 1:09 PM EDT Inhaled Oxygen Concentration - - Weight 117.9 kg (260 lb) 12/23/2021 1:09 PM EDT Height - - Body Mass Index 52.51 12/20/2021 3:00 PM EDT documented in this encounter Functional [...] of this encounter Progress Notes * Lyssa Travis ZAK Stout - 12/23/2021 1:19 PM EDT DATE OF SERVICE: 09/14/21 REFERRING PHYSICIAN: Rajwinder Carter, CC: F/U NG cirrhosis HPI: 12/23/21:Pt is still having vaginal bleeding and [...] or dark tarry stools 05/11/2021 (seen by [facility] Hepatology, Dr. 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 She was recently admitted to [facility] 03/07/21-03/11/21 with chest/epigastric pain. She was [...] failure (HCC) 09/13/2021 Chronic hypoxemic respiratory failure ([facility]) 04/08/2019 Chronic pain 03/27/2012 Cirrhosis of [...] A1c goal of less than 8.0% ([facility]) 09/26/2013 ICD-10 update of inactive term Family History Problem Relation Age of Onset Heart Disorder Father of [place] at age 61 Diabetes Father Heart Disorder Mother of [place] age 72 Heart Disorder Sister Mi at age 46 Hypertension Sister Cancer No significant family history Arthritis No significant family history Mental Disorder No significant family history Stroke No significant family history Past Surgical History: Procedure Laterality Date BONE DEBRIDEMENT, FIRST 20 CM2 Right 04/16/2020 DEBRIDEMENT SKIN SUBCUTANEOUS TISSUE MUSCLE AND BONE performed by Josh Vazquez MD at OR [facility] DELIVERY 04/20/1982 COLONOSCOPY 04/21/2009 repeat in 10 years COLONOSCOPY, DIAGNOSTIC (RECTUM) 10/04/2016 normal bx, repeat 10 yrs/[facility] COLONOSCOPY, DIAGNOSTIC (RECTUM) N/A 06/03/2020 internal hemorrhoids/biopsies show adenomatous polyps/recall 5 years/COLONOSCOPY FLEXIBLE PROXIMAL DIAGNOSTIC performed by Janis Hatch DO at OR [facility] COLONOSCOPY, DIAGNOSTIC (RECTUM) 03/17/2020 poor prep / [...] formed by Janis Hatch DO at OR [facility] EGD, FLEXIBLE, DIAGNOSTIC 11/27/2019 eso varices, portal hypertensive gastropathy, gastritis / [facility] EGD, FLEXIBLE, DIAGNOSTIC N/A 08/05/2020 large amount of food in stomach/repeat 1.5 years/ESOPHAGOGASTRODUODENOSCOPY (EGD), FLEXIBLE, TRANSORAL, DIAGNOSTIC performed by Janis Hatch DO at OR [facility] EGD, FLEXIBLE, DIAGNOSTIC N/A 03/10/2021 ESOPHAGOGASTRODUODENOSCOPY (EGD), FLEXIBLE, TRANSORAL, DIAGNOSTIC performed by Kris Blankenship MD at ENDOSCOPY [facility] IR VENOUS ACCESS MEDIPORT 10/05/2020 PELVIS/HIP JOINT SURGERY NEC teenager aid in walking REPAIR/GRAFT ACHILLES TENDON age 40 aid in [...] as needed for Wheezing. 120 Vial 11 nystatin (NYSTOP) 669074 UNIT/GM powder Apply topically to affected area 3 times a day. 60 g 1 Albuterol Sulfate (ALBUTEROL HFA) 108 (90 BASE) MCG/ACT inhaler Inhale 2 Puffs by mouth every 4hours as needed for Cough or Wheezing. With spacer 16 g 1 Ipratropium-Albuterol 0.5-2.5 (3) MG/3ML Inhalation Solution (DUONEB) Inhale 3 mL via nebulizer4 times a day. (Patient taking differently: Inhale 3 mL via nebulizer 4 times a day as needed for Shortness of Breath.) 3 mL 10 Dexcom G6 Paper Goods Machine Set Up Operator Device Use as directed. [...] 1HR PRIOR TO ACCESSING. 30 g 3 OneTouch Verio In Vitro Strip (Glucose Blood) TESTING once daily 100 Strip 3 OneTouch Delica Plus [id number] TESTING once daily 100 Each 3 Nitroglycerin [...] 2 Puffs bymouth 2 times a day. 10.2 g 1 Dexcom G6 Sensor use [...] the nose twice daily 22 g 0 Furosemide 20 MG Oral Tablet (Lasix) TAKE 1 TABLET BY MOUTH DAILY NEEDED FOR LOWER EXTREMITYSWELLING 90 Tablet 0 Spironolactone 25 MG Oral Tablet (Aldactone) TAKE 2 TABLETS BY MOUTH DAILY 60 Tablet 0 Lantus SoloStar 100 UNIT/ML Subcutaneous Solution Pen-injector 32 Units every night at bedtime . Mupirocin 2 % External Ointment (Bactroban) Apply topically to affected area 3 times a day for 14 days. To affected area for up to 14 days. 22 g 1 Potassium Chloride ER 10 MEQ Oral Tablet Extended Release Take by mouth 1 Tablet in the morning. With food.. 90 Tablet 3 Aspirin 81 MG Oral Tablet Chewable CHEW AND SWALLOW 1 TABLET BY MOUTH ONCE DAILY (Patient not taking: Reported on 12/23/2021) 30 Tablet 5 No current facility-administered medications for this visit. REVIEW OF SYSTEMS: See HPI above; All other findings negative. EXAM: Filed Vitals: 12/23/21 1309 BP: 120/70 Pulse: 100 Temp: 36.4 C (97.5 F) SpO2: 94% Weight: 117.9 kg (260 lb) GENERAL: Well developed and well nourished in [...] ASSESSMENT AND PLAN: Shaina Bustos is a 65 year old female w NALFD Cirrhosis, varices, anemia, constipation. MELD 10 - Continue Protonix to 40mg daily given indigestion, GERD control, Carafate slurry. - Obtain MELD labs q3-6months. - Last EGD 07/2020. She is on Nadolol 40mg daily, goal HR 55-65 - Last Colonoscopy: 05/2020, recall 5 yrs for hx of TA polyps - Hep A immunity: completed series - Hep B immunity: completed series - HCC screening g2iulmbp: AFP and repeat RUQ u/s - Encouraged [...] RETURN TO CLINIC: 4 months or sooner prn Esteban Pineda [facility] [address] Gastroenterology, [facility] documented in this encounter Plan of Treatment Upcoming Encounters Date Type Specialty Care Team Description 12/25/2021 Nurse Only Ancillary Glh, Pre Surgical Covid Testing [address] [place] [address] 12/27/2021 Laboratory Laboratory Processing [facility], [facility] Mobile Home Draw [address] [place] [address] 12/27/2021 Hospital Encounter Surgery Concetta Khan MD [address] [place] [address] 12/27/2021 Anesthesia Event Surgery Viridiana Menezes RN 12/27/2021 Surgery Surgery Concetta Khan MD [address] [place], [place] [phone] HYSTEROSCOPY WITH BIOPSY AND/OR POLYPECTOMY WITH OR WITHOUT D&C 12/30/2021 Home Visit [facility] July Poe, RN [address] [place] [address] 01/04/2022 Hem/Onc Treatment Hematology Oncology [place], Chair 6 Hem Onc Scenery 200 [facility] [place] [address] 01/04/2022 Office Visit Hematology Oncology Tono Sanchez MD [address] [place] [address] 01/10/2022 Laboratory Laboratory Processing [facility], [facility] Mobile Home Draw [address] [place] [address] 01/11/2022 Office Visit Gynecology Obstetrics Concetta Khan MD [address] [place], [place] [address] 01/13/2022 Home Visit Family Medicine Kaylee Barakat, Community [facility] Lithographer Helper [address] [place] [address] 01/24/2022 Laboratory Laboratory Processing [facility], [facility] Mobile Home Draw [address] [place] [address] 01/27/2022 Office Visit [address] [address] 01/28/2022 Hem/Onc Treatment Hematology Oncology [place], Chair 1 Hem Onc Scenery 200 [facility] [place] [address] 02/07/2022 Laboratory Laboratory Processing [facility], [facility] Mobile Home Draw [address] [place] [address] 02/18/2022 Hem/Onc Treatment Hematology Oncology [place], Chair 1 Hem Onc Scenery [address] [place] [address] 02/21/2022 Laboratory Laboratory Processing [facility], [facility] Mobile Home Draw [address] [place], [place] [address] 03/07/2022 Laboratory Laboratory Processing [facility], [facility] Mobile Home Draw [address] [place] [address] 03/11/2022 Hem/Onc Treatment Hematology Oncology [place], Chair 1 Hem Onc Scenery [address] [place] [address] 03/24/2022 Office Visit Pulmonary Reynaldo Marquez MD [address] [facility] [place] [address] 04/01/2022 Hem/Onc Treatment Hematology Oncology [place], Chair 1 Hem Onc Scenery [address] [place] [address] 04/22/2022 Hem/Onc Treatment Hematology Oncology [place], Chair 1 Hem Onc Scenery [address] [place] [address] 04/26/2022 Telemedicine Endocrinology Alberta Duque PA-C [address] [place], [place] [address] 04/28/2022 Office Visit Gastroenterology Lyssa Stout CRNP 132 [facility] [place] [address] 05/05/2022 Office Visit Cardiology Quyen Canseco CRNP [address] [place] [address] 06/24/2022 Office Visit Sleep Disorders Maryam Love HodgesDO [address] [place] [address] Scheduled Procedures Name Priority Associated Diagnoses Date/Ti [...] of this encounter Implants Implanted Type Area Thread Laster Device Identifier Shelf Expiration Date Model / Serial / Lot Microtech Sure Clip Implanted:Qty: 2 on 06/03/2020 by Janis Hatch DO at OR [facility] Clip N/A: Colon 04/21/2022 [facility]-F-26-2 35-C-R / / [id number] documented as of this encounter Visit Diagnoses Diagnosis NAFLD (nonalcoholic fatty liver disease)- Primary Other chronic nonalcoholic liver disease Cirrhosis of liver without ascites, unspecified hepatic cirrhosis type (HCC) Anemia, unspecified type Chronic constipation Unspecified constipation PMB (postmenopausal bleeding) Postmenopausal bleeding documented in this encounter Advance Directives Documents on File Type Date Recorded Patient Correctional Lieutenant 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 WILL AND HEALTH CARE POA Power of Citrus Fruit Colorer 04/29/2021 12:00 AM TOM R OF DRAIN CLEANER HEALTH CARE POA Advanced Directive 04/01/2021 1:14 [...] Syed Bustos Spouse Emergency Contact Care Teams Breaker Table Worker Relationship Specialty Start Date End Date Vanita Dunn MD [address] [place] [address] PCP - General Family Medicine 03/16/21 documented as of this encounter
--- OUTSIDE RECORDS SUMMARY | 2023-05-10 19:01 | External Medical Summary | Summary of Care ---
Author Name Unknown Organization [place] [address] Care Team Providers Care Applications Engineer Name Role Phone Vanita Dunn MD Primary Care Provid er Reason for Visit * Reason Onset Date Comments Advice 12/23/2021 Encounter Details Date Type Department Care Team Description 12/23/2021 Telephone [facility] [address] [place] [address] Vanita Dunn MD [address] [place] [address] Advice Allergies Active Allergy Reactions [...] 120 Vial 11 10/02/2019 Active nystatin (NYSTOP) 986452 UNIT/GM powder Apply topically to affected area [...] of Breath, Informant: Pharmacy, Reported on 02/04/2021 DexAsh Access Technology G6 Yeast Culture Developer Device Use as directed. To test [...] Strip 3 10/29/2020 Active OneTouch Delica Plus Cufzki17L TESTING once daily 100 Each 3 10/29/2020 [...] pain 01/24/2012 01/17/2017 Genetic Sleep Disorder Research Other*[id number] 05/13/2011 04/07/2016 Obstructive sleep apnea 01/18/2011 12/27/19 [...] Encounter - Vanita Dunn MD - 12/23/2021 1:46 PM EDT I called patient and back. Recommend hold tonight's Lantus dose. Monitor blood sugar, and if BG is <100, can administer orange juice or sweet candy to help get it back up again. Otherwise,ok to continue short acting insulin as is. Verbalized understanding. AG * Telephone Encounter - Sabine Valencia LPN - 12/23/2021 1:15 PM EDT Pt in the office currently_- when reviewing medications. Pt ,explained that he accidentally gave her her lantus and her novolog this morning. Pt asking what they should do. Pt does have a dexcom G6. Pt asking : " should I still give her her lantus tonight?" "should she hold any of her insulin? "If her sugar drops, when would it drop and what should she do? " Pt and would like a phone call back today from their PCP's office about what they should do. Please advise. TT sent to provider documented in this encounter Plan of Treatment Upcoming Encounters Date Type Specialty Care Team Description 12/25/2021 Nurse Only Ancillary Glh, Pre Surgical Covid Testing [address] [place] [address] 12/27/2021 Laboratory Laboratory Processing [facility], [facility] Mobile Home Draw [address] [place] [address] 12/27/2021 Hospital Encounter Surgery Concetta Khan MD [address] [place] [address] 12/27/2021 Anesthesia Event Surgery Viridiana Menezes RN 12/27/2021 Surgery Surgery Concetta Khan MD [address] [place] [address] HYSTEROSCOPY WITH BIOPSY AND/OR POLYPECTOMY WITH OR WITHOUT D&C 12/30/2021 Home Visit [facility] July Poe RN 132 [facility] [place] [address] 01/04/2022 Hem/Onc Treatment Hematology [place]cology [place], Chair 6 Hem Onc Scenery [address] [place] [address] 01/04/2022 Office Visit Hematology Oncology Tono Sanchez MD 200 [place] [address] 01/10/2022 Laboratory Laboratory Processing [facility] Mobile Home Draw [address] [place] [address] 01/11/2022 Office Visit Gynecology Obstetrics Concetta Khan MD [address] [place] [address] 01/13/2022 Home Visit Family Medicine Kaylee Barakat, Community [facility] Sustainability Purchasing Agent [address] [place] [address] 01/24/2022 Laboratory Laboratory Processing [facility], [facility] Mobile Home Draw [address] [place] [address] 01/27/2022 Office Visit [address] [address] 01/28/2022 Hem/Onc Treatment Hematology [place]cology [place], Chair 1 Hem Onc Scenery [address] [place] [address] 02/07/2022 Laboratory Laboratory Processing [facility], [facility] Mobile Home Draw [address] [place] [address] 02/18/2022 Hem/Onc Treatment Hematology Oncology [place], Chair 1 Hem Onc Scenery [address] [place] [address] 02/21/2022 Laboratory Laboratory Processing [facility] Mobile Home Draw [address] [place] [address] 03/07/2022 Laboratory Laboratory Processing [facility] Mobile Home Draw [address] [place] [address] 03/11/2022 Hem/Onc Treatment Hematology Oncology [place], Chair 1 Hem Onc Scenery [address] [place] [address] 03/24/2022 Office Visit Pulmonary Reynaldo Marquez MD [address] [place] [address] 04/01/2022 Hem/Onc Treatment Hematology Oncology [place], Chair 1 Hem Onc Scenery [address] [place] [address] 04/22/2022 Hem/Onc Treatment Hematology Oncology [place], Chair 1 Hem Onc Scenery [address] [place] [address] 04/26/2022 Telemedicine Endocrinology Alberta Duque PA-C [address] [place] [address] 04/28/2022 Office Visit Gastroenterology [facility]sa [facility]out CRNP [address] [facility] [place] [address] 05/05/2022 Office Visit Cardiology Quyen Canseco CRNP [address] [place] [address] 06/24/2022 Office Visit Sleep Disorders Love Francisco DO [address] [place] [address] Scheduled Procedures Name Priority Associated Diagnoses Date/Ti [...] of this encounter Implants Implanted Type Area Plastic Machine Operator Device Identifier Shelf Expiration Date Model / Serial / Lot Microtech Sure Clip Implanted:Qty: 2 on 06/03/2020 by Janis Hatch DO at OR [facility] Clip N/A: Colon 04/21/2022 [facility]-F-26-2 35-C-R / / [id number] documented as of this encounter Advance Directives Documents on File Type Date Recorded Patient Mixer Dry Food Products 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 WILL AND HEALTH CARE POA Power of Electro Optical Engineer 04/29/2021 12:00 AM TOM R OF SPRAY MACHINE TENDER HEALTH CARE POA Advanced Directive 04/01/2021 1:14 [...] on File Name Relationship Healthcare Agent [facility] Syed Bustos Spouse Emergency Contact Care Teams Applications Engineer Relationship Specialty Start Date End Date Vanita Dunn MD [place] [address] PCP - General Family Medicine 03/16/21 documented as of this encounter
--- OUTSIDE RECORDS SUMMARY | 2023-05-10 19:02 | External Medical Summary | Summary of Care ---
Author Name Unknown Organization [facility] Address [place] [address] Care Team Providers Care Tool Turret Lathe Set Up Operator Name Role Phone Kojo Dunn MD Primary Care Provid er Reason for Visit * Reason Onset Date Comments Medication Refill 12/20/2021 Encounter Details Date Type Department Care Team Description 12/20/[address] [facility] [address] [place] [address] Kojo Dunn MD [address] [place] [address] Hypokalemia 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 documented as of this encounter (statuses as of 12/21/2021) Medications Medication Sig Dispensed Refills Start Date End Date Status albuterol sulfate (PROVENTIL) (2.5 MG/3ML) 0.083% nebulizer solutionIndications :Pulmonary vascular congestion Inhale 1 Vial via nebulizer every 6 hours as needed for Wheezing. 120 Vial 11 10/02/2019 Active nystatin (NYSTOP) 546922 UNIT/GM powder Apply topically to affected area 3 times a day. 60 g 1 10/16/2019 Active Albuterol Sulfate (ALBUTEROL HFA) 108 (90 BASE) MCG/ACT inhalerIndications: Intermittent asthma with reliever use up to twice per week without complication Inhale 2 Puffs by mouth every 4 hours as needed for Cough or Wheezing. With spacer 16 g 1 11/06/2019 Active Ipratropium-Albuter ol 0.5-2.5 (3) MG/3ML Inhalation Solution (DUONEB)Indications :Moderate persistent asthma with acute exacerbation Inhale 3 mL via nebulizer 4 times a day. 3 mL 10 07/27/2020 Active Additional Information Patient taking differently: 3 mL Nebulizer QID PRN, Shortness of Breath, Informant: Pharmacy, Reported on 02/04/2021 [employer] G6 Director Of Health Care Marketing Device Use as directed. To test blood sugars 4 times a day Dx E11.9 1 Each 0 09/14/2020 Active Dexcom G6 Transmitter Use as directed. To test blood sugars 4 times a day. Change every 90 days. Dx E11.9 1 Each 3 09/14/2020 Active Lidocaine-Prilocain e 2.5-2.5 % External Cream (Emla)Indications:I roshan deficiency anemia due to chronic blood loss,Pancytopenia (HCC) Apply topically to affected area as needed for Other (for port). APPLY TO SKIN OVER MEDIPORT & COVER 1HR PRIOR TO ACCESSING. 30 g 3 10/09/2020 Active OneTouch Verio In Vitro Strip (Glucose Blood) TESTING once daily 100 Strip 3 10/29/2020 Active OneTouch Delica Plus [id number] TESTING once daily 100 Each 3 10/29/2020 [...] 11/13/2021 Active Mupirocin 2 % External Ointment (Bactroban)Indicati ons:Folliculitis Apply topically to affected area 3 times a day for 14 days. To affected area for up to 14 days. 22 g 1 12/18/2021 2 Active Potassium Chloride ER 10 MEQ Oral Tablet Extended ReleaseIndications: Hypokalemia Take by mouth 1 Tablet in the morning. With food.. 90 Tablet 3 12/21/2021 Active Potassium Chloride ER 10 MEQ Oral Tablet Extended ReleaseIndications: Hypokalemia TAKE 1 TABLET BY MOUTH ONCE DAILY WITH FOOD 90 Tab 3 06/11/2021 2 Discontinu ed(Refill) documented as of this encounter (statuses as of 12/21/2021) Active Problems Problem Noted Date Food insecurity [...] as of this encounter (statuses as of 12/21/2021) Resolved Problems Problem Noted Date Resolved Date [...] pain 01/24/2012 01/17/2017 Genetic Sleep Disorder Research Other*[id number] 05/13/2011 04/07/2016 Obstructive sleep apnea 01/18/2011 12/27/19 [...] as of this encounter (statuses as of 12/21/2021) Immunizations Name Administration Dates Next Due COVID-19 [...] Telephone Encounter - Kojo Dunn MD - 12/21/2021 9:49 AM EDT Signed Prescriptions: Disp Refills Potassium Chloride ER 10 MEQ Oral Tablet E*90 Tab*3 Sig: Take by mouth 1 Tablet in the morning. With food.. Authorizing Provider: KOJO DUNN * Telephone Encounter - Tamarataco Fabian LPN - 12/20/2021 2:20 PM EDT FAX REFILL PROCESS: Last Visit: 12/15/2021 (in office), 09/17/2021 (telemedicine) Next Visit: Visit date not found Date of last refill for this med: 06/11/2022 (Received a Fax from [facility] that they never received ne RX) PCP: Kojo Dunn MD Patient Active Problem List Diagnosis Code Venous insufficiency I87.2 Spinal stenosis of lumbar region without neurogenic claudication M48.061 Cerebral palsy ([facility]) G80.9 HTN, goal below 130/80 I10 NG (nonalcoholic steatohepatitis) K75.81 Venous stasis dermatitis of both lower extremities I87.2 DDD (degenerative disc disease), lumbar M51.36 Lymphedema I89.0 Type 2 diabetes mellitus with hemoglobin A1c goal of less than 8.0% ([facility]) E11.9 Vitamin D deficiency E55.9 Restrictive lung disease J98.4 Obesity, morbid (more than 100 lbs over ideal weight or BMI > 40) ([facility]) E66.01 Dyslipidemia E78.5 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 R39.81 Acquired hypothyroidism E03.9 Chronic pain syndrome G89.4 MEDICATION USE AGREEMENT [id number] Cirrhosis of liver ([facility]) K74.60 THAD on CPAP G47.33, Z99.89 Wheelchair dependent Z99.3 DM type 2 with diabetic peripheral neuropathy ([facility]) E11.42 Primary insomnia F51.01 Recurrent major depressive disorder, in partial remission ([facility]) F33.41 Impaired mobility and ADLs Z74.09, Z78.9 Gastroesophageal reflux disease K21.9 Fibromyalgia M79.7 Thrombocytopenia (HCC) D69.6 Iron deficiency anemia due to chronic blood loss D50.0 Esophageal varices (HCC) I85.00 Portal hypertensive gastropathy (HCC) K76.6, K31.89 Chronic diastolic (congestive) heart failure (HCC) I50.32 Food insecurity Z59.41 LABS: Lab Results Component Value Date/Time CREATININE - [facility] 0.8 09/23/2021 05:24 PM CREATININE - [facility] 0.6 09/24/2020 05:16 PM CREATININE, RANDOM URINE - [facility] 115 01/11/2019 01:29 PM CREATININE-OUTSIDE LAB 0.80 08/09/2021 12:00 AM Lab Results Component Value Date/Time POTASSIUM - [facility] 3.8 09/23/2021 05:24 PM POTASSIUM - [facility] 4.0 09/24/2020 05:16 PM POTASSIUM-OUTSIDE LAB 4.0 08/09/2021 12:00 AM Lab Results Component Value Date/Time [...] Results Component Value Date/Time ALT - [facility] 49 (H) 09/23/2021 05:24 PM ALT - [facility] 23 08/21/2020 04:35 [...] Encounters Date Type Specialty Care Team Description 12/22/2021 Office Visit Endocrinology Alberta Duque PA-C [address], [place] [phone] 12/23/2021 Office Visit Gastroenterology Lyssa Stout CRNP [address] [place] [address] 12/25/2021 Nurse Only Ancillary Glh, Pre Surgical Covid Testing [address] [facility] [place] [address] 12/27/2021 Laboratory Laboratory Processing [facility], [facility] Mobile Home Draw [address] [place] [address] 12/27/2021 Hospital Encounter Surgery Concetta Khan MD [address] [place] [address] 12/27/2021 Anesthesia Event Surgery Viridiana Menezes RN 12/27/2021 Surgery Surgery Concetta Khan MD [address] [facility] [place], [place] [phone] HYSTEROSCOPY WITH BIOPSY AND/OR POLYPECTOMY WITH OR WITHOUT D&C 12/30/2021 Home Visit [facility] July Poe, RN [address] [place] [address] 01/04/2022 Hem/Onc Treatment Hematology Oncology [place], Chair 6 Hem Onc Scenery [address] [place] [address] 01/04/2022 Office Visit Hematology Oncology Tono Sanchez MD [address] [place] [address] 01/10/2022 Laboratory Laboratory Processing [facility], [facility] Mobile Home Draw [address] [place] [address] 01/11/2022 Office Visit Gynecology Obstetrics Concetta Khan MD [address] [place] [id number] 01/13/2022 Home Visit Family Medicine Kaylee Barakat, Community Health Favor Maker [address] [place] [address] 01/24/2022 Laboratory Laboratory Processing [facility], [facility] Mobile Home Draw [address] [place] [address] 01/27/2022 Office Visit [address] [address] 01/28/2022 Hem/Onc Treatment Hematology Oncology [place], Chair 1 Hem Onc Scenery [address] [place] [place] [address] 02/07/2022 Laboratory Laboratory Processing [facility], [facility] Mobile Home Draw [address] [place] [address] 02/18/2022 Hem/Onc Treatment Hematology Oncology [place], Chair 1 Hem Onc Scenery [address] [place] [place] [address] 02/21/2022 Laboratory Laboratory Processing [facility], [facility] Mobile Home Draw [address] [place] [address] 03/07/2022 Laboratory Laboratory Processing [facility] Mobile Home Draw [address] [place] [address] 03/11/2022 Hem/Onc Treatment Hematology Oncology [place], Chair 1 Hem Onc Scenery [address] [place] [address] 03/24/2022 Office Visit Pulmonary Reynaldo Marquez MD [address] [place] [id number] 04/01/2022 Hem/Onc Treatment Hematology Oncology [place], Chair 1 Hem Onc Scenery [address] [place] [address] 04/22/2022 Hem/Onc Treatment Hematology Oncology [place], Chair 1 Hem Onc Scenery [address] [place] [address] 05/05/2022 Office Visit Cardiology Quyen Canseco CRNP [address] [place] [address] 06/24/2022 Office Visit Sleep Disorders Love Francisco DO [address] [place] [place] [address] Scheduled Procedures Name Priority Associated Diagnoses Date/Ti [...] of this encounter Implants Implanted Type Area Digital Production Manager Device Identifier Shelf Expiration Date Model / Serial / Lot [employer] Sure Clip Implanted:Qty: 2 on 06/03/2020 by Janis Hatch DO at OR [facility] Clip N/A: Colon 04/21/2022 [id number]-F-[id number] 35-C-R / / [id number] documented as of this encounter Visit Diagnoses Diagnosis Hypokalemia Hypopotassemia PMB (postmenopausal bleeding) Postmenopausal bleeding documented in this encounter Advance Directives Documents on File Type Date Recorded Patient Enterostomal Nurse 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 WILL LIVING WILL AND HEALTH CARE POA [facility] 04/29/2021 12:00 AM [facility]A Advanced Directive 04/01/2021 1:14 PM [...] Bustos Spouse Emergency Contact Care Teams Tool Turret Lathe Set Up Operator Relationship Specialty Start Date End Date Kojo Dunn MD [address] [place] [address] PCP - General Family Medicine 03/16/21 documented as of this encounter
--- OUTSIDE RECORDS SUMMARY | 2023-05-10 19:02 | External Medical Summary | Summary of Care ---
Author Name Unknown Organization [place] [address] Care Team Providers Care Bilingual Teacher Name Role Phone Vanita Dunn MD Primary Care Provid er Encounter Details Date Type Department Care Team Description 12/22/2021 Telemedicine Endocrinology, [place] [address], [place] [id number] Alberta Duque PA-C [address], [place] [phone] Type 2 diabetes mellitus with hemoglobin A1c goal of less than 8.0% ([facility])* 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 documented as of this encounter (statuses as of 12/22/2021) Medications Medication Sig Dispensed Refills Start Date End Date Status albuterol sulfate (PROVENTIL) (2.5 MG/3ML) 0.083% nebulizer solutionIndications: Pulmonary vascular congestion Inhale 1 Vial via nebulizer every 6 hours as needed for Wheezing. 120 Vial 11 10/02/2019 Active nystatin (NYSTOP) 245781 UNIT/GM powder Apply topically to affected area [...] Informant: Pharmacy, Reported on 02/04/2021 Dexcom G6 Crop Duster Helper Device Use as directed. To test [...] Strip 3 10/29/2020 Active OneTouch Delica Plus [id number] TESTING once daily 100 Each 3 10/29/2020 [...] as of this encounter (statuses as of 12/22/2021) Active Problems Problem Noted Date Food insecurity [...] as of this encounter (statuses as of 12/22/2021) Resolved Problems Problem Noted Date Resolved Date [...] pain 01/24/2012 01/17/2017 Genetic Sleep Disorder Research Other*[id number] 05/13/2011 04/07/2016 Obstructive sleep apnea 01/18/2011 12/27/19 [...] as of this encounter (statuses as of 12/22/2021) Immunizations Name Administration Dates Next Due COVID-19 [...] * Patient Instructions* Alberta Duque PA-C - 12/22/2021 3:15 PM EDT Follow Up: Return in about 4 months (around 04/23/2022) for Diabetes Return. | For: Diabetes Return | Check-out note: In person, thanks! documented in this encounter Progress Notes * Alberta Duque PA-C - 12/22/2021 2:59 PM EDT After connecting to the patient via telephone, the patient was identified by name and date of . Patient was then informed that this was a telephone call only visit. The patient agreed to participate. Visit Disposition: Routine follow-up Total call duration was 12 minutes. Could not connect via video , visit switched to telephone. CC: Diabetes Mellitus Type 2 Follow up HPI: This 66 year old female is seen today in the [facility] for routine follow-up of: diabetes mellitus type 2 Current concerns: - no current concerns - blood sugars have been variable , unable to view Dexcom G6 download - following with [facility] pharmacy in between visits Diabetes history: Diagnosed in her early 60's Family history of diabetes: father, and sister Comorbidities cerebral palsy, hypothyroidism, sleep apnea, NG, DLD, HTN At home primary caregiver Last Office Visit: 08/19/2021 (in office), 08/21/2020 (telemedicine) Blood sugar monitoring -Dexcom G6 - able to look at MTM note with dexcom download, average BG at that time was 234 Current Regimen: Novolog, Inject 32 units before breakfast, 36units before lunch, and36 units before supper-+ a sliding scale that they have at home Lantus 32 units a day [id number] mg daily Trulicity 4.5mg SQ weekly admits to forgetting insulin dosing at meals Hypoglycemia: Denies Microvascular complications: Neuropathy:: YES. Followed by podiatry : YES. Current issues with feet: : YES, healing diabetic ulcer Nephropathy:: NO. Last urine mc below. ACEi/ARB: Denies Retinopathy:: NO. Last eye exam >1 year. Macrovascular complications: Stroke: NO Heart attack: NO Peripheral arterial disease: YES Risk factors: Hypertension: : NO Hyperlipidemia: : YES Smoking: : NO ASA: : YES ROS: 10 systems reviewed , as per HPI All other were negative. Reviewed PMH , PSH, FH, SH and updated per chart. Exam: Wt Readings from Last 5 Encounters: 12/20/21 113.4 kg (250 lb) 12/18/21 113.4 kg (250 lb) 09/23/21 113.4 kg (250 lb) 08/03/21 115.2 kg (254 lb) 07/22/21 115.2 kg (254 lb) Labs: Recent Labs Units 08/19/21 1619 06/10/21 1445 03/08/21 0340 HEMOGLOBIN A1C - [facility] % 7.1* 7.4* 8.5* No results for input(s): MICROALBUMIN in the last 13315 hours. Recent Labs Units 12/20/21 1448 09/23/21 1724 09/14/21 1522 11/19/20 2205 09/24/20 1716 09/23/20 1436 08/21/20 1635 SODIUM - [facility] mmol/L 138 143 141 < > 138 -- 142 POTASSIUM - [facility] mmol/L 4.3 3.8 4.8 < > 4.0 -- 4.1 POTASSIUM-OUTSIDE LAB -- -- -- < > -- -- -- CALCIUM - [facility] mg/dL 9.1 9.0 9.1 < > 8.7 -- 8.9 BUN - [facility] mg/dL 13 12 19 < > 10 10 12 CREATININE - [facility] mg/dL 0.7 0.8 0.7 < > 0.6 0.6 0.7 CREATININE-OUTSIDE LAB -- -- -- < > -- -- -- ESTIMATED GLOMERULAR FILTRATION RATE - [facility] -- -- -- -- >60.0 >60.0 >60.0 < > = values in this interval not displayed. Recent Labs Units 12/20/21 1448 09/23/21 1724 09/14/21 1522 AST - [facility] U/L 41* 57* 110* ALT - [facility] U/L 25 49* 95* Recent Labs Units 09/14/21 1522 02/21/20 1143 CHOLESTEROL - [facility] mg/dL 101 -- LDL CHOLESTEROL (DIRECT MEASURE) - [facility] mg/dL -- 46 LDL CHOLESTEROL (CALCULATED) - [facility] mg/dL 46 -- HDL CHOLESTEROL - [facility] mg/dL 40* -- TRIGLYCERIDES - [facility] mg/dL 75 -- Recent Labs Units 06/10/21 1445 04/05/21 1342 02/04/21 0117 TSH - [facility] uIU/mL 0.02* 0.02* 0.17* Assessment and Plan: 66 year old female presents for routine follow up of diabetes. Goal A1C < 8%. primary caregiver gives the injections and does admit to forgetting doses. Due for updated A1C. No changes today , due to not being able to view download. Type 2 diabetes mellitus with hemoglobin A1c goal of less than 8.0% ([facility]) (Primary) - HEMOGLOBIN A1C; Future; Expected date: 12/22/2021 - please get updated labs - continue current regimen if any severe lows or consistently in 200-300's please let us know Follow Up: Return in about 4 months (around 04/23/2022) for Diabetes Return. | For: Diabetes Return Supervising physician available during time of appointment. Alberta Duque PA-C [facility] Endocrinology [address] [facility] [address] Phone: [phone] Fax: [phone] documented in this encounter Plan of Treatment Upcoming Encounters Date Type Specialty Care Team Description 12/23/2021 Office Visit Gastroenterology Lyssa Stout CRNP [address] [facility] [place] [address] 12/25/2021 Nurse Only Ancillary Gl, Pre Surgical Covid Testing [address] [place] [address] 12/27/2021 Laboratory Laboratory Processing [facility], [facility] Mobile Home Draw [address] [place] [address] 12/27/2021 Hospital Encounter Surgery Concetta Khan MD [address] [facility] [place] [address] 12/27/2021 Anesthesia Event Surgery Viridiana Menezes RN 12/27/2021 Surgery Surgery Concetta Khan MD [address] [facility] [place] [address] HYSTEROSCOPY WITH BIOPSY AND/OR POLYPECTOMY WITH OR WITHOUT D&C 12/30/2021 Home Visit [facility] July Poe, RN [address] [place] [address] 01/04/2022 Hem/Onc Treatment Hematology Oncology [place], Chair 6 Hem Onc Scenery [address] [place] [address] 01/04/2022 Office Visit Hematology Oncology Tono Sanchez MD [address] [place] [address] 01/10/2022 Laboratory Laboratory Processing [facility] Mobile Home Draw [address] [place] [address] 01/11/2022 Office Visit Gynecology Obstetrics Concetta Khan MD [address] [place], [place] [phone] 01/13/2022 Home Visit Family Medicine Kaylee Barakat, Community Health Passenger Service Manager [address] [place] [address] 01/24/2022 Laboratory Laboratory Processing [facility], [facility] Mobile Home Draw [address] [place] [address] 01/27/2022 Office Visit Pharmacy [address] [address] 01/28/2022 Hem/Onc Treatment Hematology Oncology [place], Chair 1 Hem Onc Scenery [address] [place] [address] 02/07/2022 Laboratory Laboratory Processing c, [facility] Mobile Home Draw [address] [place] [address] 02/18/2022 Hem/Onc Treatment Hematology [place]cology [place], Chair 1 Hem Onc Scenery [address] [place] [address] 02/21/2022 Laboratory Laboratory Processing [facility] Mobile Home Draw [address] [place] [address] 03/07/2022 Laboratory Laboratory Processing [facility] Mobile Home Draw [address] [place] [address] 03/11/2022 Hem/Onc Treatment Hematology [place]cology [place], Chair 1 Hem Onc Scenery [address] [place] [address] 03/24/2022 Office Visit Pulmonary Reynaldo Marquez MD [address] [place] [address] 04/01/2022 Hem/Onc Treatment Hematology [place]cology [place], Chair 1 Hem Onc Scenery [address] [place] [address] 04/22/2022 Hem/Onc Treatment Hematology Oncology [place], Chair 1 Hem Onc Scenery [address] [place], [place] [address] 05/05/2022 Office Visit Cardiology Quyen Canseco CRNP [address] [place] [address] 06/24/2022 Office Visit Sleep Disorders Love Francisco DO [address] [place] [address] Scheduled Orders Name Type Priority Associated Diagnoses Orde r Schedule HEMOGLOBIN A1C Lab Routine Type 2 diabetes mellitus with hemoglobin A1c goal of less than 8.0% (HCC) Expected: 12/22/2021, Expires: 12/22/2022 Scheduled Procedures Name Priority Associated Diagnoses Date/Ti [...] of this encounter Implants Implanted Type Area Ui Ux Developer Device Identifier Shelf Expiration Date Model / Serial / Lot [employer] Sure Clip Implanted:Qty: 2 on 06/03/2020 by Janis Hatch DO at OR [facility] Clip N/A: Colon 04/21/2022 [facility]-F-[id number] 35-C-R / / [id number] documented as of this encounter Visit Diagnoses Diagnosis Type 2 diabetes mellitus with hemoglobin A1c goal of less than 8.0% (HCC)- Primary PMB (postmenopausal bleeding) Postmenopausal bleeding documented in this encounter Advance Directives Documents on File Type Date Recorded Patient Gag Writer 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 WILL AND HEALTH CARE POA Power of Photovoltaic Installer 04/29/2021 12:00 AM TOM R OF [employer]AR AS[employer]ER HEALTH CARE POA Advanced Directive 04/01/2021 [...] File Name Relationship Healthcare Agent [facility] Communication Syed Bustos Spouse Emergency Contact Care Teams Bilingual Teacher Relationship Specialty Start Date End Date Mona, Vanita Carissa Chipe, MD [address] [place] [phone] PCP - General Family Medicine 03/16/21 documented as of this encounter"
--- OUTSIDE RECORDS SUMMARY | 2023-05-10 19:03 | External Medical Summary | Summary of Care ---
Author Name Unknown Organization [place] [address] Care Team Providers Care Drilling Fluids Specialist Name Role Phone Vanita Dunn MD Primary Care Provid er Reason for Visit * Reason Comments Outpatient Testing Encounter Details Date Type Department Care Team Description 12/20/2021 Laboratory Laboratory, [facility] [address] [place] [id number] [facility], Lab [address] [place] [address] Leg edema; Pain of left calf 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 documented as of this encounter (statuses as of 12/20/2021) Medications Medication Sig Dispensed Refills Start Date End Date Status albuterol sulfate (PROVENTIL) (2.5 MG/3ML) 0.083% nebulizer solutionIndications: Pulmonary vascular congestion Inhale 1 Vial via nebulizer every 6 hours as needed for Wheezing. 120 Vial 11 10/02/2019 Active nystatin (NYSTOP) 079661 UNIT/GM powder Apply topically to affected area [...] Informant: Pharmacy, Reported on 02/04/2021 Dexcom G6 Qa Tester Device Use as directed. To test [...] Strip 3 10/29/2020 Active OneTouch Delica Plus [id number] TESTING once daily 100 Each 3 10/29/2020 [...] AT BEDTIME 90 Tab 3 06/11/2021 Active Potassium Chloride ER 10 MEQ Oral Tablet Extended ReleaseIndications:H ypokalemia TAKE 1 TABLET BY MOUTH ONCE DAILY WITH FOOD 90 Tab 3 06/11/2021 Active Pantoprazole Sodium [...] as of this encounter (statuses as of 12/20/2021) Active Problems Problem Noted Date Food insecurity [...] as of this encounter (statuses as of 12/20/2021) Resolved Problems Problem Noted Date Resolved Date [...] pain 01/24/2012 01/17/2017 Genetic Sleep Disorder Research Other*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 05/13/2011 04/07/2016 Obstructive sleep apnea 01/18/2011 12/27/19 [...] as of this encounter (statuses as of 12/20/2021) Immunizations Name Administration Dates Next Due COVID-19 [...] Visit Endocrinology [facility]C [address] [facility] [address] 12/23/2021 Office Visit Gastroenterology Lyssa Stout CRNP [address] [place] [address] 12/25/2021 Nurse Only Ancillary Glh, Pre Surgical Covid Testing [address] [place] [address] 12/27/2021 Laboratory Laboratory Processing [facility] Mobile Home Draw [address] [place] [address] 12/27/2021 Hospital Encounter [facility] [address] [facility] [place] [id number] 12/27/2021 Surgery Surgery Concetta Khan MD [address] [facility] [place] [id number] HYSTEROSCOPY WITH BIOPSY AND/OR POLYPECTOMY WITH OR WITHOUT D&C 12/30/2021 Home Visit [facility] July Poe RN [address] [place] [address] 01/04/2022 Hem/Onc Treatment Hematology Oncology [place], Chair [address] [address] 01/04/2022 Office Visit Hematology Oncology Tono Sanchez MD [address] [place] [address] 01/10/2022 Laboratory Laboratory Processing [facility] Mobile Home Draw [address] [place] [address] 01/11/2022 Office Visit Gynecology Obstetrics Concetta Khan MD [address], [place] [id number] 01/13/2022 Home Visit Family Medicine Kaylee Barakat, Community [facility] Production Artist [address] [place] [address] 01/24/2022 Laboratory Laboratory Processing [facility] Mobile Home Draw [address] [place] [address] 01/27/2022 Office Visit [address] [address] 01/28/2022 Hem/Onc Treatment Hematology Oncology [place], Chair 1 Hem Onc Sc[address] [place] [address] 02/07/2022 Laboratory Laboratory Processing [facility] Mobile Home Draw [address] [place] [address] 02/18/2022 Hem/Onc Treatment Hematology Oncology [place], Chair 1 Hem Onc Sc[address] [place] [address] 02/21/2022 Laboratory Laboratory Processing [facility] Mobile Home Draw [address] [place] [address] 03/07/2022 Laboratory Laboratory Processing [facility] Mobile Home Draw [address] [place] [address] 03/11/2022 Hem/Onc Treatment Hematology Oncology [place], Chair 1 Hem Onc [address] [place] [address] 03/24/2022 Office Visit Pulmonary Reynaldo Marquez MD [address] [place] [address] 04/01/2022 Hem/Onc Treatment Hematology Oncology [place], Chair 1 Hem Onc [address] [place] [address] 04/22/2022 Hem/Onc Treatment Hematology Oncology [place], Chair 1 Hem Onc Sc[address] [place] [address] 05/05/2022 Office Visit Cardiology Quyen Canseco CRNP [address] [facility] [place] [address] 06/24/2022 Office Visit Sleep Disorders Love Francisco DO [address] [facility] [place] [address] Pending Results Name Type Priority Associated Diagnoses Date /Time CBC WITH WBC DIFFERENTIAL Lab STAT Leg edema Pain of left calf 12/20/2021 2:48 PM EDT COMPREHENSIVE METABOLIC PANEL Lab STAT Leg edema Pain of left calf 12/20/2021 2:48 PM EDT BNP (NT-PROBNP) Lab STAT Leg edema Pain of left calf 12/20/2021 2:48 PM EDT CBC Lab STAT Leg edema Pain of left calf 12/20/2021 2:48 PM EDT DIFFERENTIAL, AUTOMATED Lab STAT Leg edema Pain of left calf 12/20/2021 2:48 PM EDT Scheduled Procedures Name Priority Associated [...] BASIC METABOLIC PANEL (BMP) FOR HTN YEARLY 09/23/2022 09/23/2021, 09/14/2021, 08/09/2021, Additional history exists COLONOSCOPY-EVERY 5 YRS AGES [...] of this encounter Implants Implanted Type Area Signal Engineer Device Identifier Shelf Expiration Date Model / Serial / Lot [employer] Sure Clip Implanted:Qty: 2 on 06/03/2020 by Janis Hatch DO at OR 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
--- OUTSIDE RECORDS SUMMARY | 2023-05-10 19:03 | External Medical Summary | Summary of Care ---
Author Name Unknown Organization [facility] [place] [address] Care Team Providers Care Amr Physician Name Role Phone Vanita Dunn MD Primary Care Provid er Reason for Visit * Reason Onset Date Comments Pre-Op Testing 12/20/2021 Encounter Details Date Type Department Care Team Description 12/20/2021 Pre-Admission Testing Pre Surgery Center, [facility] [address] [place] [address] [facility] [address] [place] [address] Pre-operative examination* Allergies Active Allergy Reactions Severity Noted Date [...] 120 Vial 11 10/02/2019 Active nystatin (NYSTOP) 986021 UNIT/GM powder Apply topically to affected area [...] Informant: Pharmacy, Reported on 02/04/2021 Dexcom G6 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 Meds * Agents No agents on file. * Blood No blood administrations on file. Lines, Drains, and Airways Type Details Placement Removal Implanted IV Device Right; Chest; Yes 04/09/21 1558 by Alteration in Skin Integrity Placement Date: 02/04/21; Time: 1909; Wound Type: Moist Skin; Orientation/Laterality: Lateral, Left, Lower; Location: Back 02/04/211909 by Imelda Gunter RN Alteration in Skin Integrity Placement Date: 02/18/21; Time: 1807; Orientation/Laterality: Anterior, Distal, Left, Lower; Location: Leg 02/18/211807 by Corrie Lester RN Alteration in Skin Integrity Placement Date: 03/08/21; Time: 1245; Wound Type: Other (Abrasion); Orientation/Laterality: Left; Location: Ear 03/08/21 1246 by Shanna Green RN Urethral Catheter 09/23/21; 1836; 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; Regular catheter; 16; 10 mL; Yes 09/23/211836 by Peggy Samuels [facility] documented in this encounter Social History Tobacco Use Types [...] Sign Reading Time Taken Comments Blood Pressure 100/61 12/20/2021 3:00 PM EDT Pulse 63 12/20/2021 3:00 PM EDT Temperature - - Respiratory Rate 18 12/20/2021 3:00 PM EDT Oxygen Saturation 96% 12/20/2021 3:00 PM EDT Inhaled Oxygen Concentration - - Weight 113.4 kg (250 lb) 12/20/2021 3:00 PM EDT Height 149.9 cm (4' 11") 12/20/2021 3:00 PM EDT Body Mass Index 50.49 12/20/2021 3:00 PM EDT documented in this [...] this encounter Patient Instructions * Patient Instructions* Viridiana Menezes RN - 12/20/2021 2:59 PM EDT [place] [phone] You will be called the day before surgery (on Monday if your surgery is Monday) with the time to beat the hospital. If you have not been called by 4:00 p.m., please call [phone]. Report to the "C" entrance on of surgery. This is at the top of the hill past the entrance to the Emergency Room. You will see a large glass fronted building with a large green canopy which you can drive under. Enter through the sliding glass doors and report to the registration desk directly inside the doors. There is complimentary rn transport parking available under the canopy. There are 2 parking lots nearby as well. THANK YOU FOR CHOOSING [facility]! PRE-OP PATIENT INFORMATION AND EDUCATION: MEDICATION INSTRUCTIONS: The day of surgery/procedure, you may TAKE the following medications with a sip of water up to 2 hours prior to your arrival time: Escitalopram, Gabapentin, Isosorbide Mononitrate, Levothyroxine, Linzess, Nadalol, and Oxybutynin. AVOID / DO NOT TAKE the following medications the evening prior to and morning of surgery/procedure: Metformin STOP taking the following medications the noted number of days prior to surgery/procedure unless otherwise specified by your surgeon: Please follow surgeon's instructions regarding use of aspirin, Coumadin, Plavix, Eliquis, and any other blood thinner including NSAIDs (non-steroidal anti-inflammatory drugs, eg, Advil, Ibuprofen,Motrin, Aleve, Naproxen). 10 days prior to surgery/procedure Stop all Herbal supplements, Green Tea, Turmeric, Melatonin, CBD, THC, etc. Stop all Vitamins (including Vitamin E) 24 hours prior to surgery/procedure DO NOT consume any alcohol. DO NOT use medical marijuana. DO NOT smoke or use tobacco products of any kind after midnight prior to surgery. *Using any of these products may increase your risks of procedural complications. IF IT IS LESS THAN RECOMMENDED STOPPAGE TIME PLEASE STOP AT TIME OF NOTIFICATION. FASTING RECOMMENDATIONS: To reduce risk, it is important for all elective surgery patients to follow the specific fasting guidelines listed below. DO NOT EAT after midnight on the night prior to your surgery date. You are allowed to drink clear liquids up to two hours prior to arrival time to the hospital or surgery center. Examples of clear liquids include water, clear fruit juice without pulp, clear carbonated beverages, clear tea, and black coffee. Any drinks given by your surgical service take as directed. THE DAY BEFORE YOUR SURGERY: -Drink plenty of fluid the day before your surgery. Contact your surgeon's office if you develop any of the following within 2 weeks of surgery: A cold Infection Fever Shingles Chicken pox or exposure to chicken pox Open areas such as scrapes, cuts, olvera or other skin conditions Rashes GENERAL INSTRUCTIONS FOR PREPARING FOR SURGERY: BATHING INSTRUCTIONS: Bathe the evening prior to and the morning of surgery/procedure. Cleanse your body using ONLY anti-bacterial soap (eg, Dial, Safeguard) or any specific soap/cleansers and instructions provided by your surgeon (eg, Chlorhexidine). -You should brush your teeth the morning of surgery. Do NOT apply any lotions, powders, sprays, creams, oils, make-up, or deodorants after bathing. No hairspray, or nail liberian on fingers or toes. Day of surgery/procedure do not use tampons. If you wear contacts wear your eyeglasses if available otherwise bring your contact supplies with you to remove them prior to your surgery/procedure. If you wear glasses or dentures, please bring cases in which you can store them during your surgery. Please remove all piercings and jewelry and leave them at home. Wear comfortable and loose clothing. -Please leave all valuables at home. -If you use a CPAP and are staying overnight, please bring your mask. -If you use an assistive mobility device (walker, cane, etc), please label it with your name and bring to hospital. -An escort milk wagon driver is required if you are being discharged the same day of the surgery. You should have a responsible adult over the age of 18 to drive you home. This person should be present with youin the hospital at the time of discharge and for the first 24 hours after the surgery to support your needs. If you are taking a taxi home, you must have your responsible democrat accompany you in the taxi ride home at the time of discharge. OR times subject to change. Please check voicemail messages the day/evening before your surgery forany updates. PRE-OP: You will be taken to the pre-op area where your vital signs (blood pressure, pulse and temperature)will be taken. Any preparations that need to be done will be done there. When it is time for your surgery, you will be taken to the operating room. PARENTS OF PEDIATRIC PATIENTS WILL BE ALLOWED TO STAY WITH THEIR CHILDREN UNTIL THEY ARE ESCORTED TO THE OPERATING ROOM OUTPATIENT SURGERY PATIENTS: After your surgery you will be taken to the Same Day Surgery Unit when you are awake and will go home from there. You will get instructions about your home care before you leave. Arrange to have someone drive you home from the hospital. You may not drive for 24 hours after anesthesia. You must havean adult stay with you at home for 24 hours after your operation. This is very important. If you are not able to comply with these guidelines, your Short Stay surgery cannot be done. ADMISSION PATIENTS: After your stay in the recovery area, you will be taken to your room. Your family may visit you in your room based on current visitation policy. If a next day discharge is expected, it is important to make arrangements for a milk wagon driver to take you home. Please be aware our visitation policies are subject to change Professionals, attendants, caregivers or family members are allowable visitors for patients with intellectual, developmental or cognitive disabilities, communication barriers or behavioral concerns. Because patients' and families' needs vary, they will be taken into account when applying visitat ion restrictions. ANESTHESIA INFORMATION This information has been prepared to help you and your family better understand the process of anesthesia, so that you may help make well-informed decisions about your care. This information is alsoprovided to guide your completion of the [facility] anesthesia consent form which addresses real, but infrequent, problems associated with anesthesia. IMPORTANT INFORMATION TO PREVENT YOUR SURGERY FROM BEING CANCELLED/ RESCHEDULED: --You are required to have a milk wagon driver to take you home whether you are admitted to the hospital following your surgery or not --You are required to have a responsible adult with you for the first 24 hours after surgery to support your needs Types of Anesthesia: Local Anesthesia - Local anesthetic drugs (numbing drugs) are usually injected into the tissues to numb just the specific location of your body requiring minor surgery, such as an area of your hand or foot. Regional Anesthesia -Regional anesthesia involves the use of local anesthetics (numbing drugs) to numb larger areas of your body by blocking nerves to those areas. This is commonly referred to as a nerve block. Another way of performing regional anesthesia is by blocking nerves of the spinal cord by injecting numbing m edicines with great exactness around those nerves. This is called spinal or epidural anesthesia depending on exactly where the medication is injected. The type of regional anesthesia selected dependson the type of surgery and whether regional anesthesia is being done to help with pain after surgery or as a part of the anesthesia for surgery. You may remain awake, be sedated, or be given a general anesthetic depending on the type of surgery and the type of regional anesthesia performed Monitored Anesthesia Care (MAC) -Describes a range of sedation that can be given to a patient undergoing a procedure. The level of sedation usually depends on what is needed for the procedure being performed. A patient could be awake and aware of the procedure being performed but be relaxed and able to follow instructions as needed or may be unaware of what is happening and only rouse to significant stimulation. A patient may be able to speak, hear things around them, and answer questions and follow commands but is not in pain or anxious. A patient may experience varying depths of sedation during the procedure. The use of general anesthesia could result if this type of anesthesia is ineffective. General Anesthesia - Occurs by using a combination of medications to put a patient into a deep, sleep-like, unresponsive state for surgery. This is required for many surgical procedures. Under general anesthesia, a patient does not feel pain and is unaware of what is happening during the procedure. Systems in the body may not function normally while a patient is under general anesthesia. They are monitored by the anesthesia provider and may need to be assisted while a patient is under general anesthesia. For example, a breathing device may need to be placed in the airway to assist breathing and medications mayneed to be given to ensure that your blood pressure and heart rate remain normal. Risks of Anesthesia: Regional/Local/Nerve Blocks -Include but are not limited to, , cardiac or respiratory arrest, permanent complete paralysis, permanent nerve injury, seizure, spinal headache, backache, pain in buttocks and legs, infection, bleeding, leakage of spinal fluid, inadequate pain relief, bowel or bladder dysfunction, prolonged numbness or pain, temporary drop in blood pressure, or allergic reaction to the medications. Monitored Anesthesia Care (MAC) -Common risks include temporary dizziness, light-headedness, nausea and/or vomiting, and leakage ofintravenous fluid into the tissues with swelling or discoloration of the area or residual pain. Less common risks include, but are not limited to, , heart attack, permanent brain damage, stroke,pneumonia, blood clots, awareness, nerve stretch injury of your arm, neck or leg, permanent liver damage and allergic reaction to the medications. General Anesthesia -More common risks include temporary sore throat, pain in the neck or other muscles, dizziness, light-headedness, nausea and/or vomiting, and leakage of intravenous fluid into the tissues with swelling or discoloration of the area or residual pain. Less common risks include, but are not limited to,, heart attack, permanent brain damage, stroke, pneumonia, blood clots, irritation of the cornea of your eye, vision loss, loosened or broken teeth, or other oral injuries, awareness, nerve stretch injury of the arm, neck or leg, hoarseness, laryngospasm, permanent liver damage and allergic reaction to the medications. History of anesthesia complications: If you or a family member have had a complication related to anesthesia such as difficulty with placement of a breathing tube or a serious reaction to a medication administered for anesthesia, pleasetell your anesthesia provider. Having this information will help keep you safe while under anesthesia Nausea: A common side effect of anesthesia is nausea, but some patients do experience both nausea and vomiting. If you have experienced nausea or vomiting after anesthesia in the past, be sure to tell your anesthesia provider so medication can be given to help prevent it from happening again. Patient safety/consenting process: All surgical procedures and anesthetics have some small risks. They are dependent upon many factorsincluding the type of surgery and your medical condition. That is why it is important to know aboutany underlying medical problems, how they are treated and how they can be managed to reduce the risks of anesthesia and surgery. Thus, it is important for your anesthesia provider to ask detailed questions about your medical history, and to know what prescription medications you are taking, including dosages and schedules, as well as any over the counter or herbal medicines and supplements. You must notify the doctor of any of the following: -if you are or possibly -if you have any sensitivity to medications -present mental and physical condition -if recently consumed alcohol or non-clear liquids -if you are presently on psychiatric mood-altering drugs or other medications If you are a female of child-bearing age and you use any form of hormone-based contraception, please continue to use it and, in addition, use an alternative form of contraception, such as condoms andspermicide for a month after discharge from the hospital. This is because during the hospitalization you might receive one or more medications that may render hormone-based contraceptives ineffective for several days or weeks. The affected contraceptives include, but are not limited to, the usual contraceptive pills, most types of intrauterine devices, Depo-Provera shots, hormonal patches, and hormonal vaginal rings. If you are not sure, contact your primary care physician, your pharmacy benefits coordinator, or your surgeon to check if this warning applies to you. You may need to have invasive monitoring, which includes the insertion of catheters into your veinsand arteries. This is done to measure pressures, to take blood samples, and may be used in emergentsituations for intravenous access. This monitoring has risks including, but not limited to, injury to your arteries, lung collapse, bleeding, nerve injury as well as the risks related to anesthesia. An esophageal probe may be used to monitor your heart, this monitor has risks which include sore throat, hoarseness, difficulty with swallowing, loosened or broken teeth and esophageal injury. Major complications are rare but could include , respiratory distress, an abnormal heartbeat, infection, and bleeding. As part of the consent to administer anesthesia authorization you will discuss the following with the anesthesia doctor and his/her associates: -your present condition and diagnosis as it pertains to anesthesia or sedation administration -a description of the proposed anesthetic/sedation technique or procedure to be used -significant risks and benefits of the proposed anesthetic/sedation technique or procedure -any applicable alternatives, including their risks and benefits -if applicable, use of back-up method of contraception for 30 days after discharge -if applicable, the option of having no treatment and the potential results of this -if your procedure is in an outpatient surgery setting-the risk associated with having this procedure in this type of setting should be discussed as well as the potential need for transfer to the hospital if necessary Please be sure to have all questions that you have answered prior to signing the consent to administer anesthesia. You can make your care safer by being an active, informed patient. It is important that you are involved in your health care. Being a good patient does not mean being a silent one. If you have questions, problems, safety concerns or unmet needs, please let us know if you would like further clarification of the "Patient Rights and Responsibilities" as they pertain to you, or would like more information regarding our complaint and for grievance process, please call the site where you receive care and request to speak withthe patient advocate line. documented in this encounter Progress Notes * Viridiana Menezes RN - 12/20/2021 3:00 PM EDT ~SEE ANESTHESIA EVENT FOR PRE-OP ANESTHESIA ASSESSMENT~ ~~~~~~~~~~~~~~~~~~~~~~~~~~~~~~~~~~~~~~~~~~~~~~~~~~~~ Patient identified by name/birthdate Optime case procedure confirmed with surgical consent Laterality confirmed as N/a Surgery date at time of Pre-Surgery Center Encounter: 12/27/2021. Does the patient have a yellow bar? No The inherent risks of general anesthesia were explained to the pt and he/she verbalizes understanding. Serious problems are rare but he/she has been made aware of these risks. Risks include but are not limited to: nausea, vomiting, sore throat, dental damage, allergic reactions, heart or lung complications, stroke, or . The patient was given the opportunity to ask questions concerning the anesthetic risks, possible complications, and alternatives to the planned anesthetic. Anesthesia Consent form and brochure given for patient review. In an emergency, is patient willing to accept blood products or blood transfusion? Unknown. Preop Eval Requested? Pt was seen by her PCP on 12/15/2021 for clearance. Full note is in Epic. Dr. Denis made aware of pt's PCP note and that she is moderate/high risk for complications. NO ANESTHESIA EVAL REQUESTED PER CASE DOCUMENTATION. Viridiana Menezes RN Per rooming tool, patient is complaining of pain: No PATIENT EDUCATION SCREENING Education Screening: Patient What procedure is patient having? diagnostic hysteroscopy, dilation and curettage, possible loop electrosurgery excision of the cervix Does patient need pre-op soap? N/A Does Blood Bank order need placed? No. Motivation Level: Asks Questions and Eager to Learn Language Barrier: no Physical Barrier: N/A Patient Preferred Learning Methods: Reading LEARNING NEED: Printed Patient Education Given: Preop Information: Adult and Managing your pain Persons present for education: Patient METHOD: One to One and Handout OUTCOME: State / Describe / Explain and Needs Reinforcement PATIENT INSTRUCTIONS GIVEN: - General Preoperative Instructions Reviewed - Medication Instructions Reviewed - If your normal morning routine take Lexapro, Gabapentin, Imdur, Levothyroxine, Linzess, Nadolol, and Oxybutynin the morning of surgery. If you take metformin, hold it the evening before surgery as well. Pt instructed to call her surgeon's office to get low dose ASA instructions. - NPO Instructions Reviewed - Patient advised to contact Surgeons Office if new onset of cold symptoms, fever, chills within 2 wks of planned surgery. Pt is planning on having surgery as I/O surgery; Patient instructed a responsible adult must be with patient for 24hrs after surgery. Do not drive, operate any appliances and/or machinery or sign legal documents for 24 hours. Verbalizes understanding of education: Yes Health history interview completed. Pre-Surgical Assessment and Education Signature: Viridiana Menezes RN 12/20/2021 documented in this encounter Plan of Treatment Upcoming Encounters Date Type Specialty Care Team Description 12/22/2021 Office Visit Endocrinology Alberta Duque PA-C [address], [place] [id number] 12/23/2021 Office Visit Gastroenterology Lyssa Stout CRNP [address] [place] [address] 12/25/2021 Nurse Only Ancillary Gl, Pre Surgical Covid Testing [address] [place] [address] 12/27/2021 Laboratory Laboratory Processing [facility] Draw [address], [place] [id number] 12/27/2021 Hospital Encounter Surgery Concetta Khan MD [address], [place] [id number] 12/27/2021 Anesthesia Event Surgery Viridiana Menezes RN 12/27/2021 Surgery Surgery Concetta Khan MD [address] [place] [address] HYSTEROSCOPY WITH BIOPSY AND/OR POLYPECTOMY WITH OR WITHOUT D&C 12/30/2021 Home Visit [facility] July Poe RN [address] [place] [address] 01/04/2022 Hem/Onc Treatment Hematology Oncology [place], Chair 6 Hem Onc Scenery [address] [facility] [place] [address] 01/04/2022 Office Visit Hematology Oncology Tono Sanchez MD [address] [place] [address] 01/10/2022 Laboratory Laboratory Processing [facility] Mobile [facility] Draw [address] [place] [address] 01/11/2022 Office Visit Gynecology Obstetrics Concetta Khan MD [address] [place] [address] 01/13/2022 Home Visit Family Medicine Kaylee Barakat, [facility] Trimmer [address] [place] [address] 01/24/2022 Laboratory Laboratory Processing [facility] Draw [address] [place] [address] 01/27/2022 Office Visit [address] [address] 01/28/2022 Hem/Onc Treatment Hematology Oncology [place], Chair 1 Hem Onc Scenery [address] [facility] [place] [address] 02/07/2022 Laboratory Laboratory Processing [facility] Mobile [facility] Draw [address] [place] [address] 02/18/2022 Hem/Onc Treatment Hematology Oncology [place], Chair 1 Hem Onc Scenery [address] [facility] [place] [address] 02/21/2022 Laboratory Laboratory Processing [facility] [place] Draw [address] [place] [address] 03/07/2022 Laboratory Laboratory Processing [facility] [place] Draw [address] [place] [address] 03/11/2022 Hem/Onc Treatment Hematology Oncology [place], Chair 1 Hem Onc Scenery [address] [facility] [place] [address] 03/24/2022 Office Visit Pulmonary Reynaldo Marquez MD [address] [place] [address] 04/01/2022 Hem/Onc Treatment Hematology Oncology [place], Chair 1 Hem Onc Scenery [address] [facility] [address] 04/22/2022 Hem/Onc Treatment Hematology Oncology [place], Chair 1 Hem Onc Scenery [address] [facility] [address] 05/05/2022 Office Visit Cardiology Quyen Canseco CRNP [address] [place] [address] 06/24/2022 Office Visit Sleep Disorders Love Francisco DO [address] [place] [address] Scheduled Procedures Name Priority Associated Diagnoses Date/Ti [...] of this encounter Implants Implanted Type Area Wireline Supervisor Device Identifier Shelf Expiration Date Model / Serial / Lot Microtech Sure Clip Implanted:Qty: 2 on 06/03/2020 by Janis Hatch DO at OR [facility] Clip N/A: Colon 04/21/2022 [facility]-F-26-2 35-C-R / / [id number] documented as of this encounter Visit Diagnoses Diagnosis Pre-operative examination- Primary Preoperative examination, unspecified PMB (postmenopausal bleeding) Postmenopausal bleeding documented in this encounter Advance Directives Documents on File Type Date Recorded Patient Mason Liner 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 WILL LIVING WILL AND HEALTH CARE POA [place] [employer]OOK[employer] Pharmacy Manager 04/29/2021 12:00 AM TOM R [facility] POA Advanced Directive 04/01/2021 1:14 [...] on File Name Relationship Healthcare Agent [facility] Communication Syed Bustos Spouse Emergency Contact Care Teams Amr Physician Relationship Specialty Start Date End Date Vanita Dunn MD [address] [facility] [place] [place] [phone] PCP - General Family Medicine 03/16/21 documented as of this encounter
--- OUTSIDE RECORDS SUMMARY | 2023-05-10 19:03 | External Medical Summary | Summary of Care ---
Author Name Unknown Organization [facility] Address [place] [address] Care Team Providers Care Backend Developer Name Role Phone Vanita Dunn MD Primary Care Provid er Reason for Visit * Reason Onset Date Comments Pre-Op Testing 12/20/2021 Encounter Details Date Type Department Care Team Description 12/20/2021 Pre-Admission Testing Pre Surgery Center, [facility] [address] [place] [address] Pending Sale To [facility] [address] [place] [address] Pre-operative examination* Allergies Active Allergy Reactions Severity [...] 120 Vial 11 10/02/2019 Active nystatin (NYSTOP) 350366 UNIT/GM powder Apply topically to affected area [...] Informant: Pharmacy, Reported on 02/04/2021 Dexcom G6 Feller Hand Device Use as directed. To test [...] Strip 3 10/29/2020 Active OneTouch Delica Plus [id number] TESTING once daily 100 Each 3 10/29/2020 [...] pain 01/24/2012 01/17/2017 Genetic Sleep Disorder Research Other*[id number] 05/13/2011 04/07/2016 Obstructive sleep apnea 01/18/2011 12/27/19 [...] Green RN Urethral Catheter 09/23/21; 1836; Hand precast molder; Regular catheter; 16; 10 mL; Yes 09/23/211836 by Peggy Samuels [facility] documented in this encounter Social History Tobacco [...] Menezes RN - 12/20/2021 2:59 PM EDT [place] [phone] You will be called the day before surgery (on Monday if your surgery is Monday) with the time to beat the hospital. If you have not been called by 4:00 p.m., please call [phone]. Report to the "C" entrance on of surgery. This is at the top of the hill past the entrance to the Emergency Room. You will see a large glass fronted building with a large green canopy which you can drive under. Enter through the sliding glass doors and report to the registration desk directly inside the doors. There is complimentary web production designer parking available under the canopy. There are [...] deodorants after bathing. No hairspray, or nail uzbek on fingers or toes. Day of surgery/procedure [...] name and bring to hospital. -An escort company driver is required if you are being [...] taxi home, you must have your responsible libertarian accompany you in the taxi ride home [...] is important to make arrangements for a company driver to take you home. Please be [...] alsoprovided to guide your completion of the [facility] anesthesia consent form which addresses real, but infrequent, problems associated with anesthesia. IMPORTANT INFORMATION TO PREVENT YOUR SURGERY FROM BEING CANCELLED/ RESCHEDULED: --You are required to have a company driver to take you home whether you [...] the airway to assist breathing and medications may need to be given to ensure that your [...] sure, contact your primary care physician, your pricing director, or your surgeon to check if this [...] Visit Endocrinology Alberta Duque PA-C [address] [place], [place] [phone] 12/23/2021 Office Visit Gastroenterology Lyssa Stout CRNP [address] [place] [facility] [place] [address] 12/25/2021 Nurse Only Ancillary Gl, Pre Surgical Covid Testing [address] [place] [address] 12/27/2021 Laboratory Laboratory Processing [facility], [facility] Mobile Home Draw [address], [place] [phone] 12/27/2021 Hospital Encounter Surgery Concetta Khan MD [address] [place], [place] [id number] 12/27/2021 Anesthesia Event Surgery Viridiana Menezes RN 12/27/2021 Surgery Surgery Concetta Khan MD [address] [place] [address] HYSTEROSCOPY WITH BIOPSY AND/OR POLYPECTOMY WITH OR WITHOUT D&C 12/30/2021 Home Visit [facility] July Poe RN [address] [place] [facility] [place] [address] 01/04/2022 Hem/Onc Treatment Hematology Oncology [place], Chair 6 Hem Onc Scenery [address] [place] [address] 01/04/2022 Office Visit Hematology Oncology Tono Sanchez MD [address] [place] [address] 01/10/2022 Laboratory Laboratory Processing [facility] Mobile Home Draw [address] [place] [address] 01/11/2022 Office Visit Gynecology Obstetrics Concetta Khan MD [address] [place], [place] [id number] 01/13/2022 Home Visit Family Medicine Kaylee Barakat, Community Health Manager [facility] [address] [place] [address] 01/24/2022 Laboratory Laboratory Processing [facility] Mobile Home Draw [address] [place] [address] 01/27/2022 Office Visit [address] [address] 01/28/2022 Hem/Onc Treatment Hematology Oncology [place], Chair 1 Hem Onc Scenery [address] [facility] [place], [place] [address] 02/07/2022 Laboratory Laboratory Processing [facility] Mobile Home Draw [address] [place] [address] 02/18/2022 Hem/Onc Treatment Hematology Oncology [place], Chair 1 Hem Onc Scenery [address] [facility] [place] [address] 02/21/2022 Laboratory Laboratory Processing [facility] Mobile Home Draw [address] [place] [address] 03/07/2022 Laboratory Laboratory Processing [facility] Mobile Home Draw [address] [place] [address] 03/11/2022 Hem/Onc Treatment Hematology Oncology [place], Chair 1 Hem Onc Scenery [address] [place] [address] 03/24/2022 Office Visit Pulmonary Reynaldo Marquez MD [address] [place] [address] 04/01/2022 Hem/Onc Treatment Hematology Oncology [place], Chair 1 Hem Onc Scenery [address] [facility] [address] 04/22/2022 Hem/Onc Treatment Hematology Oncology [place], Chair 1 Hem Onc Scenery [address] [place] [address] 05/05/2022 Office Visit Cardiology Quyen Canseco CRNP [address] [place] [address] 06/24/2022 Office Visit Sleep Disorders Love Francisco DO [address] [place] [address] Scheduled Procedures Name Priority Associated Diagnoses Date/Ti [...] of this encounter Implants Implanted Type Area Pipeline Operator Device Identifier Shelf Expiration Date Model / Serial / Lot Microtech Sure Clip Implanted:Qty: 2 on 06/03/2020 by Janis Hatch DO at OR [facility] Clip N/A: Colon 04/21/2022 [facility]-F-26-2 35-C-R / / [id number] documented as of this encounter Visit Diagnoses Diagnosis Pre-operative examination- Primary Preoperative examination, unspecified PMB (postmenopausal bleeding) Postmenopausal bleeding documented in this encounter Advance Directives Documents on File Type Date Recorded Patient Legal Document Assistant 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 LIVING WILL AND HEALTH CARE POA Power [employer] PharmaceuticalsInteractive Media Marketing Director 04/29/2021 12:00 AM TOM R [facility] POA Advanced Directive 04/01/2021 1:14 [...] Agents on File Name Relationship Healthcare Agent [facility] Communication Syed Bustos Spouse Emergency Contact Care Teams Backend Developer Relationship Specialty Start Date End Date Vanita Dunn MD [address] [place] [address] PCP - General Family Medicine 03/16/21 documented as of this encounter
--- OUTSIDE RECORDS SUMMARY | 2023-05-10 19:04 | External Medical Summary | Summary of Care ---
Author Name Unknown Organization [place] [address] Care Team Providers Care Gardening Manager Name Role Phone Vanita Dunn MD Primary Care Provid er Encounter Details Date Type Department Care Team Description 12/18/2021 Result Scan Unspecified Department <No scans attached> [...] 120 Vial 11 10/02/2019 Active nystatin (NYSTOP) 169846 UNIT/GM powder Apply topically to affected area [...] Informant: Pharmacy, Reported on 02/04/2021 Dexcom G6 Artistic Associate Device Use as directed. To test [...] TO ACCESSING. 30 g 3 10/09/2020 Active AppsemblerTouch Verio In Vitro Strip (Glucose Blood) TESTING once daily 100 Strip 3 10/29/2020 Active AppsemblerTouch Delica Plus Rpoitl33B TESTING once daily 100 Each 3 10/29/2020 [...] Lantus SoloStar 100 UNIT/ML Subcutaneous Solution Pen-injector 0 11/13/2021 Active Mupirocin 2 % External Ointment (Bactroban)Indicatio ns:Folliculitis Apply topically to affected area 3 times a day for 14 days. To affected area for up to 14 days. 22 g 1 12/18/2021 2 Active documented as of this encounter (statuses [...] pain 01/24/2012 01/17/2017 Genetic Sleep Disorder Research Other*[id number] 05/13/2011 04/07/2016 Obstructive sleep apnea 01/18/2011 12/27/19 [...] Never Used Alcohol Use Standard Drinks/Week Comments No 0 (1 standard drink = 0.6 oz [...] Encounters Date Type Specialty Care Team Description 12/20/2021 Pre-Admission Testing PreSurgery Glh, Psae [address] [place] [address] 12/22/2021 Office Visit Endocrinology Alberta Duque PA-C [address] [facility] [place] [address] 12/23/2021 Office Visit Gastroenterology Lyssa Stout CRNP [address] [facility] [place] [address] 12/25/2021 Nurse Only Ancillary Glh, Pre Surgical Covid Testing [address] [place] [place] [address] 12/27/2021 Laboratory Laboratory Processing [facility], [facility] Mobile Home Draw [address] [place] [address] 12/27/2021 Hospital Encounter Surgery Conc[facility] MD [address] [facility] [place] [place] [address] 12/27/2021 Surgery Surgery [facility]cetta Khan MD [address] [facility] [id number] HYSTEROSCOPY WITH BIOPSY AND/OR POLYPECTOMY WITH OR WITHOUT D&C 12/30/2021 Home Visit [facility] July Poe RN [address] [place] [address] 01/04/2022 Hem/Onc Treatment Hematology Oncology [place], Chair [address] [address] 01/04/2022 Office Visit Hematology Oncology Tono Sanchez MD [address] [place] [address] 01/10/2022 Laboratory Laboratory Processing [facility], [facility] Mobile Home Draw [address] [place] [address] 01/11/2022 Office Visit Gynecology Obstetrics Concetta Khan MD [address] [facility] [address] 01/13/2022 Home Visit Family Medicine Kaylee Barakat, Community Health Human Resources Professional [address] [place] [address] 01/24/2022 Laboratory Laboratory Processing [facility], [facility] Mobile Home Draw [address] [place] [address] 01/27/2022 Office Visit [address] [address] 01/28/2022 Hem/Onc Treatment Hematology Oncology [place], Chair 1 Hem Onc Scenery [address] [place] [address] 02/07/2022 Laboratory Laboratory Processing [facility], [facility] Mobile Home Draw [address] [place] [address] 02/18/2022 Hem/Onc Treatment Hematology Oncology [place], Chair 1 Hem Onc Scenery [address] [place] [address] 02/21/2022 Laboratory Laboratory Processing [facility], [facility] Mobile Home Draw [address] [place] [address] 03/07/2022 Laboratory Laboratory Processing [facility], [facility] Mobile Home Draw [address] [place] [address] 03/11/2022 Hem/Onc Treatment Hematology Oncology [place], Chair 1 Hem Onc Scenery [address] [place] [address] 03/24/2022 Office Visit Pulmonary Reynaldo Marquez MD [address] [place] [address] 04/01/2022 Hem/Onc Treatment Hematology Oncology [place], Chair 1 Hem Onc Scenery [address] [place] [address] 04/22/2022 Hem/Onc Treatment Hematology Oncology [place], Chair 1 Hem Onc Scenery [address] [place] [address] 05/05/2022 Office Visit Cardiology Quyen Canseco CRNP [address] [place] [address] 06/24/2022 Office Visit Sleep Disorders Love Francisco DO [address] [place] [address] Scheduled Procedures Name Priority Associated Diagnoses Date/Ti [...] of this encounter Implants Implanted Type Area Shading Painter Device Identifier Shelf Expiration Date Model / Serial / Lot Microtech Sure Clip Implanted:Qty: 2 on 06/03/2020 by Janis Hatch DO at OR [facility] Clip N/A: Colon 04/21/2022 [facility]-F-26-2 35-C-R / / [id number] documented as of this encounter Procedures Procedure Name Priority Date/Time Associated Diagnosis Comments RADIOLOGY SCANNED RESULT 12/18/2021 documented in this encounter Results * RADIOLOGY SCANNED RESULT (12/18/2021) Specimen Narrative documented in this encounter Advance Directives Documents on File Type Date Recorded Patient Retail Seasonal Specialist 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 WILL AND HEALTH CARE POA Power of Affiliate Marketing Manager 04/29/2021 12:00 AM TOM R OF [facility] DRIVER HEALTH CARE POA Advanced Directive 04/01/2021 [...] Healthcare Agent [facility] Communication Syed Bustos Spouse Emergency Contact Care Teams Gardening Manager Relationship Specialty Start Date End Date Vanita Dunn MD [address] [place] [address] PCP - General Family Medicine 03/16/21 documented as of this encounter
--- OUTSIDE RECORDS SUMMARY | 2023-05-10 19:04 | External Medical Summary | Summary of Care ---
Author Name Unknown Organization [facility] Address [place] [address] Care Team Providers Care Independent Sales Representative Name Role Phone Vanita Dunn MD Primary Care Provid er Encounter Details Date Type Department Care Team Description 12/18/2021 Scan Encounter [facility] [address] [place] [address] Vanita Dunn MD [address] [place] [address] <No scans attached> Allergies Active [...] 120 Vial 11 10/02/2019 Active nystatin (NYSTOP) 498844 UNIT/GM powder Apply topically to affected area [...] Informant: Pharmacy, Reported on 02/04/2021 Dexcom G6 Hand Crown Pouncer Device Use as directed. To test blood [...] Strip 3 10/29/2020 Active OneTouch Delica Plus Evxerp79Q TESTING once daily 100 Each 3 10/29/2020 [...] pain 01/24/2012 01/17/2017 Genetic Sleep Disorder Research Other*[id number] 05/13/2011 04/07/2016 Obstructive sleep apnea 01/18/2011 12/27/19 [...] 12/20/2021 Pre-Admission Testing PreSurgery Glh, Psae [address] [place] [address] 12/22/2021 Office Visit Endocrinology Alberta Duque PA-C [address] [facility] [place] [address] 12/23/2021 Office Visit Gastroenterology Lyssa Stout CRNP [address] [place] [address] 12/25/2021 Nurse Only Ancillary Gl, Pre Surgical Covid Testing [address] [place] [address] 12/27/2021 Laboratory Laboratory Processing [facility], [facility] Mobile Home Draw [address] [place] [address] 12/27/2021 Hospital Encounter Surgery Concetta Khan MD [address] [place], [place] [address] 12/27/2021 Surgery Surgery Concetta Khan MD [address] [place], [place] [id number] HYSTEROSCOPY WITH BIOPSY AND/OR POLYPECTOMY WITH OR WITHOUT D&C 12/30/2021 Home Visit [facility] July Poe RN [address] [place] [address] 01/04/2022 Hem/Onc Treatment Hematology Oncology [place], Chair [address] [address] 01/04/2022 Office Visit Hematology Oncology Tono Sanchez MD [address] [place] [address] 01/10/2022 Laboratory Laboratory Processing [facility], [facility] Mobile Home Draw [address] [place] [address] 01/11/2022 Office Visit Gynecology Obstetrics Concetta Khan MD [address] [place], [place] [address] 01/13/2022 Home Visit Family Medicine Kaylee Barakat, Community Health Plywood Factory Worker [address] [place] [address] 01/24/2022 Laboratory Laboratory Processing [facility], [facility] Mobile Home Draw [address] [place] [address] 01/27/2022 Office Visit [address] [address] 01/28/2022 Hem/Onc Treatment Hematology Oncology [place], Chair 1 Hem Onc Scenery [address] [place] [address] 02/07/2022 Laboratory Laboratory Processing [facility], [facility] Mobile Home Draw [address] [place] [address] 02/18/2022 Hem/Onc Treatment Hematology Oncology [place], Chair 1 Hem Onc Scenery [address] [facility] [address] 02/21/2022 Laboratory Laboratory Processing [facility], [facility] Mobile Home Draw [address] [place] [address] 03/07/2022 Laboratory Laboratory Processing [facility], [facility] Mobile Home Draw [address] [place] [address] 03/11/2022 Hem/Onc Treatment Hematology Oncology [place], Chair 1 Hem Onc Scenery [address] [facility] [address] 03/24/2022 Office Visit Reynaldo Marks MD [address] [place] [address] 04/01/2022 Hem/Onc Treatment Hematology Oncology [place], Chair 1 Hem Onc Scenery [address] [facility] [address] 04/22/2022 Hem/Onc Treatment Hematology Oncology [place], Chair 1 Hem Onc Scenery [address] [place], [place] [address] 05/05/2022 Office Visit Cardiology Quyen Canseco CRNP 132 [facility] [place] [address] 06/24/2022 Office Visit Sleep Disorders Love Francisco DO [address] [place] [address] Scheduled Procedures Name Priority Associated Diagnoses Date/Ti [...] of this encounter Implants Implanted Type Area Software Support Specialist Device Identifier Shelf Expiration Date Model / Serial / Lot Microtech Sure Clip Implanted:Qty: 2 on 06/03/2020 by Janis Hatch DO at OR [facility] Clip N/A: Colon 04/21/2022 [facility]-F-26-2 35-C-R / / [id number] documented as of this encounter Advance Directives Documents on File Type Date Recorded Patient Interface Designer 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 WILL AND HEALTH CARE POA Power of Finish Carpenter 04/29/2021 12:00 AM TOM R OF [place] OF STUDENT SERVICES HEALTH CARE POA Advanced Directive 04/01/2021 1:14 [...] Syed Bustos Spouse Emergency Contact Care Teams Independent Sales Representative Relationship Specialty Start Date End Date Vanita Dunn MD [address], [place] [phone] PCP - General Family Medicine 03/16/21 documented as of this encounter
--- OUTSIDE RECORDS SUMMARY | 2023-05-10 19:04 | External Medical Summary ---
Author Name Unknown Address Unknown Organization K1F:[facility] - [address] [place] [address] Laboratory Report Ordering Provider Test Date Status GRACIE RUGGIERO 12/20/2021 14:48:47 Final Observation Date Value Abnormality Reference (Units ) Status BNP, Pro-hormone 12/20/2021 14:48:47 175 <30 0 (pg/mL) Final Performing Location LAB[facility]ATORY [facility] - [address] [place] [address]
--- OUTSIDE RECORDS SUMMARY | 2023-05-10 19:04 | External Medical Summary | Summary of Care ---
Author Name Unknown Organization [facility] [address] Care Team Providers Care Mangle Feeder Name Role Phone Vanita Dunn MD Primary Care Provid er Encounter Details Date Type Department Care Team Description 12/20[facility]2021 [facility] [address] [place] [address] Tom Poe PA-C [address] [place] [address] Allergies Active Allergy Reactions Severity Noted Date [...] 120 Vial 11 10/02/2019 Active nystatin (NYSTOP) 852221 UNIT/GM powder Apply topically to affected area [...] Informant: Pharmacy, Reported on 02/04/2021 Dexcom G6 Hourly Sales Staff Device Use as directed. To test blood [...] Strip 3 10/29/2020 Active OneTouch Delica Plus [id number] TESTING once daily 100 Each 3 10/29/2020 [...] pain 01/24/2012 01/17/2017 Genetic Sleep Disorder Research Other*[id number] 05/13/2011 04/07/2016 Obstructive sleep apnea 01/18/2011 12/27/19 [...] 12/20/2021 Pre-Admission Testing PreSurgery Glh, Psae [address] [place] [address] 12/22/2021 Office Visit Endocrinology Alberta Duque PA-C [address] [facility] [place] [address] 12/23/2021 Office Visit Gastroenterology Lyssa Stout CRNP [address] [facility] [place] [address] 12/25/2021 Nurse Only Ancillary Gl, Pre Surgical Covid Testing [address] [place] [address] 12/27/2021 Laboratory Laboratory Processing [facility], [facility] Mobile Home Draw [address] [place] [address] 12/27/2021 Hospital Encounter Surgery Concetta Khan MD [address] [facility] [place] [id number] 12/27/2021 Surgery Surgery Concetta Khan MD [address] [facility] [place] [phone] HYSTEROSCOPY WITH BIOPSY AND/OR POLYPECTOMY WITH OR WITHOUT D&C 12/30/2021 Home Visit [facility] July Poe RN [address] [place] [address] 01/04/2022 Hem/Onc Treatment Hematology Oncology Hanahan, Chair [address] [address] 01/04/2022 Office Visit Hematology Oncology Tono Sanchez MD [address] [place] [address] 01/10/2022 Laboratory Laboratory Processing [facility] [place] [facility], [facility] Mobile Home Draw [address] [place] [address] 01/11/2022 Office Visit Gynecology Obstetrics Concetta Khan MD [address] [place], [place] [address] 01/13/2022 Home Visit Family Medicine Kaylee Barakat, Community Health Minister [address] [place] [address] 01/24/2022 Laboratory Laboratory Processing [facility] [place], [facility] Mobile Home Draw [address] [place] [address] 01/27/2022 Office Visit [address] [address] 01/28/2022 Hem/Onc Treatment Hematology Oncology [place], Chair 1 Hem Onc Scenery [address] [place] [address] 02/07/2022 Laboratory Laboratory Processing [facility], l Mobile Home Draw [address] [place] [address] 02/18/2022 Hem/Onc Treatment Hematology Oncology [place], Chair 1 Hem Onc Scenery [address] [place] [address] 02/21/2022 Laboratory Laboratory Processing [facility] [place] [facility], [facility] Mobile Home Draw [address] [place] [address] 03/07/2022 Laboratory Laboratory Processing [facility], [facility] Mobile Home Draw [address] [place] [address] 03/11/2022 Hem/Onc Treatment Hematology Oncology [place], Chair 1 Hem Onc Scenery [address] [place] [address] 03/24/2022 Office Visit Reynaldo Marks MD [address] [place] [phone] 04/01/2022 Hem/Onc Treatment Hematology Oncology [place], Chair 1 Hem Onc Scenery [address] [place] [address] 04/22/2022 Hem/Onc Treatment Hematology Oncology [place], Chair 1 Hem Onc Scenery [address] [place], [place] [address] 05/05/2022 Office Visit Cardiology Quyen Canseco CRNP [address] [facility] [place] [address] 06/24/2022 Office Visit Sleep Disorders Love Francisco DO 132 [facility] [place] [address] Scheduled Procedures Name Priority Associated Diagnoses Date/Ti [...] of this encounter Implants Implanted Type Area Membership Solicitor Device Identifier Shelf Expiration Date Model / Serial / Lot Microtech Sure Clip Implanted:Qty: 2 on 06/03/2020 by Janis Hatch DO at OR [facility] Clip N/A: Colon 04/21/2022 [facility]-F-26-2 35-C-R / / [id number] documented as of this encounter Procedures Procedure Name Priority Date/Time Associated Diagnosis Comments XR CHEST 2 VIEWS Routine 12/18/2021 documented in this encounter Results * XR CHEST 2 VIEWS (12/18/2021) Anatomical Region Laterality Modality Chest Other Specimen Narrative OUTSIDE LAB (SEE SCANNED REPORT) documented in this encounter Advance Directives Documents on File Type Date Recorded Patient Community Arts Worker 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 WILL AND HEALTH CARE POA Power of Painter Ordnance 04/29/2021 12:00 AM TOM R OF [facility] IN HEALTH CARE POA Advanced Directive 04/01/2021 1:14 [...] Syed Bustos Spouse Emergency Contact Care Teams Mangle Feeder Relationship Specialty Start Date End Date Vanita Dunn MD [address] [place] [facility] [place] [address] PCP - General Family Medicine 03/16/21 documented as of this encounter
--- OUTSIDE RECORDS SUMMARY | 2023-05-10 19:04 | External Medical Summary ---
Author Name Unknown Address Unknown Organization K1F:LABORATORY [facility] - [address] [facility] [place] [address] Laboratory Report Ordering Provider Test Date Status GRACIE RUGGIERO 12/20/2021 14:48:47 Final Observation Date Value Abnormality Reference (Units ) Status SYNC LEUKOCYTES IN BLOOD BY AUTOMATED COUNT 12/20/2021 14:48:47 4.00 4.00-10.80 (K/uL) Final Segs 12/20/2021 14:48:47 57.4 40.0-75.0 (%) Final Lymphs % 12/20/2021 14:48:47 19.5 18.0-42.0 (%) Final Monos 12/20/2021 14:48:47 12.0 Above high normal 1.0-11.0 (%) Final Eosinophils 12/20/2021 14:48:47 9.8 Above high normal 0.0-6.0 (%) Final Basos 12/20/2021 14:48:47 0.8 0.0-2.0 (%) Final Immature Granulocyte, Percent 12/20/2021 14:48:47 0.5 0.0-2.0 (%) Final Absolute Segs 12/20/2021 14:48:47 2.30 1.80-7.70 (K/uL) Final Lymphs, absolute 12/20/2021 14:48:47 0.78 Below low normal 1.00-4.80 (K/ul) Final Monos, Abs 12/20/2021 14:48:47 0.48 0.00-1.10 (K/uL) Final Eos, Abs 12/20/2021 14:48:47 0.39 0.00-0.70 (K/uL) Final Basos, Abs 12/20/2021 14:48:47 0.03 0.00-0.20 (K/uL) Final Immature Granulocytes, Number 12/20/2021 14:48:47 0.02 0.00-0.20 (K/uL) Final Performing Location LABORATORY [facility] - [facility] Eleanor [address]. [place] [address]
--- OUTSIDE RECORDS SUMMARY | 2023-05-10 19:05 | External Medical Summary | Summary of Care ---
Author Name Unknown Organization [facility] [place] [address] Care Team Providers Care Candy Roller Name Role Phone Vanita Dunn MD Primary Care Provid er Reason for Visit * Reason Onset Date Comments Test Results 12/20/2021 Encounter Details Date Type Department Care Team Description 12/20[facility]20[facility] [address] [facility] [place] [address] Vicki Darnell PA-C 174 [facility] [place] [address] Test Results Allergies Active Allergy Reactions Severity [...] 120 Vial 11 10/02/2019 Active nystatin (NYSTOP) 452826 UNIT/GM powder Apply topically to affected area [...] of Breath, Informant: Pharmacy, Reported on 02/04/2021 Dex1EQ G6 Ross Carrier Driver Device Use as directed. To test [...] Strip 3 10/29/2020 Active OneTouch Delica Plus Onbqhd96S TESTING once daily 100 Each 3 10/29/2020 [...] pain 01/24/2012 01/17/2017 Genetic Sleep Disorder Research Other*[id number] 05/13/2011 04/07/2016 Obstructive sleep apnea 01/18/2011 12/27/19 [...] Telephone Encounter - Vanita Dunn MD - 12/20/2021 10:17 AM EDT Follows hematology. 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 Recommend following up with PCP. Note, patient was seen in ED recently for incidental finding of dislocation. She also notes that she gets transfusions regularly Forwarding to PCP for follow up. Patient expressed understanding. All questions answered. Agrees with Plan. documented in this encounter Plan of Treatment Upcoming Encounters Date Type Specialty Care Team Description 12/20/2021 Pre-Admission Testing PreSurgery Glh, Psae [address] [place] [address] 12/22/2021 Office Visit Endocrinology Alberta Duque PA-C [address] [place] [address] 12/23/2021 Office Visit Gastroenterology Lyssa Stout CRNP [address] [place] [address] 12/25/2021 Nurse Only Ancillary Glh, Pre Surgical Covid Testing [address] [place] [address] 12/27/2021 Laboratory Laboratory Processing [facility] Mobile Home Draw [address] [place] [address] 12/27/2021 Hospital Encounter Surgery Concetta Khan MD [address] [place] [address] 12/27/2021 Surgery Surgery Concetta Khan MD [address] [place] [address] HYSTEROSCOPY WITH BIOPSY AND/OR POLYPECTOMY WITH OR WITHOUT D&C 12/30/2021 Home Visit [facility] July Poe RN [address] [place] [address] 01/04/2022 Hem/Onc Treatment Hematology Oncology [place], Chair 6 Hem Onc Scenery [address] [facility] [place] [address] 01/04/2022 Office Visit Hematology Oncology Tono Sanchez MD [address] [facility] [place] [address] 01/10/2022 Laboratory Laboratory Processing [facility] Mobile Home Draw [address] [place] [address] 01/11/2022 Office Visit Gynecology Obstetrics Concetta Khan MD [address] [place] [address] 01/13/2022 Home Visit Family Medicine Kaylee Barakat, Community Health Automatic Bandsaw Tender [address] [place] [address] 01/24/2022 Laboratory Laboratory Processing [facility] [place] [place] Draw [address] [place] [address] 01/27/2022 Office Visit [address] [address] 01/28/2022 Hem/Onc Treatment Hematology Oncology [place], Chair 1 Hem Onc Scenery [address] [place] [address] 02/07/2022 Laboratory Laboratory Processing c, [facility] Mobile Home Draw [address] [place] [address] 02/18/2022 Hem/Onc Treatment Hematology Oncology Maryellen, Chair 1 Hem Onc Scenery [address] [place] [address] 02/21/2022 Laboratory Laboratory Processing [facility] [place] Mobile Home Draw [address] [place] [address] 03/07/2022 Laboratory Laboratory Processing [facility] [place] Mobile Home Draw [address] [place] [address] 03/11/2022 Hem/Onc Treatment Hematology Oncology [place], Chair 1 Hem Onc Scenery [address] [place] [address] 03/24/2022 Office Visit Pulmonary Reynadlo Marquez MD [address] [place] [address] 04/01/2022 Hem/Onc Treatment Hematology Oncology [place], Chair 1 Hem Onc Scenery [address] [place] [address] 04/22/2022 Hem/Onc Treatment Hematology Oncology [place], Chair 1 Hem Onc Scenery [address] [place] [address] 05/05/2022 Office Visit Cardiology Quyen Canseco CRNP [address] [place] [address] 06/24/2022 Office Visit Sleep Disorders Love Francisco DO [address] [place] [address] Scheduled Procedures Name Priority Associated Diagnoses Date/Ti [...] of this encounter Implants Implanted Type Area Transit Survey Worker Device Identifier Shelf Expiration Date Model / Serial / Lot Microtech Sure Clip Implanted:Qty: 2 on 06/03/2020 by Janis Hatch DO at OR [facility] Clip N/A: Colon 04/21/2022 [facility]-F-26-2 35-C-R / / [id number] documented as of this encounter Advance Directives Documents on File Type Date Recorded Patient Commodity Industry Analyst 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 WILL AND HEALTH CARE POA Power of Bi Analyst 04/29/2021 12:00 AM TOM Johnson OF [facility] CARE POA Advanced Directive 04/01/2021 1:14 [...] Bustos Spouse Emergency Contact Care Teams Candy Roller Relationship Specialty Start Date End Date Vanita Dunn MD [address] [place] [address] PCP - General Family Medicine 03/16/21 documented as of this encounter
--- OUTSIDE RECORDS SUMMARY | 2023-05-10 19:05 | External Medical Summary ---
Author Name Unknown Address Unknown Organization K1F:LABORATORY [facility] - [address] [place] [address] Laboratory Report Ordering Provider Test Date Status GRACIE RUGGIERO 12/20/2021 14:48:47 Final Observation Date Value Abnormality Reference (Units ) Status Anisocytosis [Presence] in Blood by Light microscopy 12/20/2021 14:48:47 Moderate Abnormal None Seen Final Elliptocytes [Presence] in Blood by Light microscopy 12/20/2021 14:48:47 Few Abnormal None Seen Final Schistocytes 12/20/2021 14:48:47 Few Abnormal None Seen Final Dacrocytes [Presence] in Blood by Light microscopy 12/20/2021 14:48:47 Few Abnormal None Seen Final Giant platelets [Presence] in Blood by Light microscopy 12/20/2021 14:48:47 Present Abnormal None Seen Final Performing Location LABORATORY [facility] - [address] [facility] [address] [place] [address]
--- OUTSIDE RECORDS SUMMARY | 2023-05-10 19:05 | External Medical Summary ---
Author Name Unknown Address Unknown Organization K1F:LABORATORY [facility] - [address] [place] [address] Laboratory Report Ordering Provider Test Date Status GRACIE RUGGIERO 12/20/2021 14:48:47 Final Observation Date Value Abnormality Reference (Units ) Status WBC, Total 12/20/2021 14:48:47 4.00 4.00-10.8 0 (K/uL) Final RBC 12/20/2021 14:48:47 3.30 Below low normal 3.8 5-5.15 (M/uL) Final Hemoglobin 12/20/2021 14:48:47 10.6 Below low normal 12 .0-15.3 (g/dL) Final HCT 12/20/2021 14:48:47 34.5 Below low normal 36. 0-45.2 (%) Final MCV 12/20/2021 14:48:47 104.5 Above high normal 81 .5-97.5 (fL) Final MCH 12/20/2021 14:48:47 32.1 27.0-34.0 (pg) Final MCHC 12/20/2021 14:48:47 30.7 Below low normal 32. 0-36.0 (g/dL) Final RDW 12/20/2021 14:48:47 24.2 Above high normal 11 .5-15.5 (%) Final MPV 12/20/2021 14:48:47 Final Performing Location LABORATORY [facility] - [address] [place] [address]
--- OUTSIDE RECORDS SUMMARY | 2023-05-10 19:05 | External Medical Summary ---
Author Name Unknown Address Unknown Organization K1F:LABORATORY [facility] - [address] [place] [address] Laboratory Report Ordering Provider Test Date Status GRACIE RUGGIERO 12/20/2021 14:48:47 Final Observation Date Value Abnormality Reference (Units ) Status BUN 12/20/2021 14:48:47 13 6-20 (mg/dL) Final Creatinine 12/20/2021 14:48:47 0.7 0.5-1.0 (mg/dL) Final Glomerular filtration rate/1.73 sq M.predicted [Volume Rate/Area] in Serum, Plasma or Blood by Creatinine-based formula (CKD-EPI) 12/20/2021 14:48:47 >90 >=60 (mL/min) Final Performing Location LABORATORY [facility] - [address] [place] [address]
--- OUTSIDE RECORDS SUMMARY | 2023-05-10 19:06 | External Medical Summary | Summary of Care ---
Author Name Unknown Organization [place] [address] Care Team Providers Care Perinatal Specialist Name Role Phone Vanita Dunn MD Primary Care Provid er Reason for Visit * Reason Comments Pain left lower leg pain Encounter Details Date Type Department Care Team Description 12/18/2021 Convenient Care Visit [facility] [address] [place] [address] Tom Poe PA-C [address] [facility] [place] [address] Leg edema*; Pain of left calf; SOB (shortness of breath); Restrictive lung disease; THAD on CPAP; Chronic diastolic (congestive) heart failure (HCC); Portal hypertensive gastropathy (HCC); Wheelchair dependent; Folliculitis 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 documented as of this encounter (statuses as of 12/18/2021) Medications Medication Sig Dispensed Refills Start Date End Date Status albuterol sulfate (PROVENTIL) (2.5 MG/3ML) 0.083% nebulizer solutionIndications: Pulmonary vascular congestion Inhale 1 Vial via nebulizer every 6 hours as needed for Wheezing. 120 Vial 11 10/02/2019 Active nystatin (NYSTOP) 536398 UNIT/GM powder Apply topically to affected area [...] of Breath, Informant: Pharmacy, Reported on 02/04/2021 [employer] G6 Medical Staff Credentialing Coordinator Device Use as directed. To test [...] Strip 3 10/29/2020 Active OneTouch Delica Plus [id number] TESTING once daily 100 Each 3 10/29/2020 [...] as of this encounter (statuses as of 12/18/2021) Active Problems Problem Noted Date Food insecurity [...] as of this encounter (statuses as of 12/18/2021) Resolved Problems Problem Noted Date Resolved Date [...] pain 01/24/2012 01/17/2017 Genetic Sleep Disorder Research Other*[id number] 05/13/2011 04/07/2016 Obstructive sleep apnea 01/18/2011 12/27/19 [...] as of this encounter (statuses as of 12/18/2021) Immunizations Name Administration Dates Next Due COVID-19 [...] Sign Reading Time Taken Comments Blood Pressure 120/68 12/18/2021 1:56 PM EDT Pulse 58 12/18/2021 1:56 PM EDT Temperature 36.8 C (98.2 F) 12/18/2021 1:56 PM ED T Respiratory Rate 20 12/18/2021 1:56 PM EDT Oxygen Saturation 96% 12/18/2021 1:56 PM EDT Inhaled Oxygen Concentration - - Weight 113.4 kg (250 lb) 12/18/2021 1:56 PM EDT Height 149.9 cm (4' 11") 12/18/2021 1:56 PM EDT Body Mass Index 50.49 12/18/2021 1:56 PM EDT documented in this encounter Functional [...] this encounter Patient Instructions * Patient Instructions* Tom Poe PA-C - 12/18/2021 2:35 PM EDT Blood work, Xray, and ultrasound of legs at [facility]. Antibiotic ointment three times a day to left leg for 10 days. Continue all maintenance medications. Ensure you are taking spironolactone 50mg a day and lasix 20mg three times a day. Follow-up with PCP in 2-3 days. Sooner if worsens. ED if acutely worsens, or if develop increasing shortness of breath, chest pain, lightheaded/dizziness. documented in this encounter Progress Notes * Tom Poe PA-C - 12/18/2021 2:18 PM EDT Nursing Notes: Sharon Lindquist LPN 12/18/21 1358 Signed Shaina Bustos is a 66 year old female who presents to walk-in clinic today complaining of Chief Complaint Patient presents with Pain left lower leg pain Main Symptoms:left lower leg pain Cause: unknown How lon-2 weeks Tried: nothing Pt accompanied by: Subjective Shaina Bustos is a 66 year old female with a PMH of DM2, hypothyroidism, Restrictive lung disease, THAD on CPAP, HTN, venous insufficiency, CHF, esophageal varices, cirrhosis, portal HTN, NG, Obesity, GERD, fibro, DDD, CP, chronic pain syndrome that presents for Pain (left lower leg pain) Leg Pain The incident occurred more than 1 week ago. The incident occurred at home. There was no injury mechanism. The pain is present in the left leg, left heel, left ankle, left foot, left toes and right leg (L calf is the worst. L leg > R leg). The quality of the pain is described as aching and cramping. The pain is at a severity of 7/10. The pain is moderate. The pain has been constant since onset. Associated symptoms include an inability to bear weight and muscle weakness. Pertinent negatives include no loss of motion, loss of sensation, numbness or tingling. Associated symptoms comments: Patient is wheelchair bound and has minimal use of legs at baseline. She reports no foreign bodies present. The symptoms are aggravated by palpation. She has tried nothing for the symptoms. She also reports swelling of bilateral lower extremities R>L She reports baseline swelling, but it is worse than normal. She takes spironolactone daily, lasix 20mg PRN. Per chart review, she was told by cardiology to increase lasix to 3x a day and increase spironolactone to 50mg a day in Oct 2021, but she has not done this and is only taking half that dose spironolactone and lasix once a day. She reports increased SOB than baseline. She denies h/o VTE She denies being on AC She denies family H/o VTE She denies hemoptysis, CP, Palpitations, LH, dizziness. She denies sinus symptoms, cough, f/s/ch. Objective BP 120/68 | Pulse 58 | Temp 36.8 C (98.2 F) (Tympanic) | Resp 20 | Ht 1.499 m (4' 11") | Wt 113.4 kg (250 lb) | SpO2 96% | BMI 50.49 kg/m | BSA 2.17 m Body mass index is 50.49 kg/m. BP Readings from Last 3 Encounters: 12/18/21 120/68 12/17/21 106/66 12/15/21 124/76 Wt Readings from Last 3 Encounters: 12/18/21 113.4 kg (250 lb) 09/23/21 113.4 kg (250 lb) 08/03/21 115.2 kg (254 lb) Physical Exam Vitals and nursing note reviewed. Constitutional: Appearance: Normal appearance. She is obese. She is ill-appearing. Comments: Wheelchair bound HENT: Head: Normocephalic and atraumatic. Right Ear: External ear normal. Left Ear: External ear normal. Nose: Nose normal. Mouth/Throat: Mouth: Mucous membranes are moist. Pharynx: Oropharynx is clear. Eyes: Extraocular Movements: Extraocular movements intact. Conjunctiva/sclera: Conjunctivae normal. Pupils: Pupils are equal, round, and reactive to light. Neck: Vascular: No carotid bruit. Cardiovascular: Rate and Rhythm: Normal rate and regular rhythm. Heart sounds: No murmur heard. No friction rub. No gallop. Pulmonary: Breath sounds: Wheezing and rales present. No rhonchi. Abdominal: General: There is distension. Musculoskeletal: Cervical back: Normal range of motion and neck supple. No rigidity. Right lower leg: Swelling and tenderness present. Edema present. Left lower leg: Swelling and tenderness present. 3+ Edema present. Right ankle: Swelling present. Tenderness present. Decreased range of motion. Left ankle: Swelling present. Tenderness present. Decreased range of motion. Right foot: Decreased range of motion. Swelling and tenderness present. Left foot: Decreased range of motion. Swelling and tenderness present. Comments: Venous stasis changes bilateral LEs +richmond's sign L LE Lymphadenopathy: Cervical: No cervical adenopathy. Skin: General: Skin is warm and dry. Capillary Refill: Capillary refill takes 2 to 3 seconds. Neurological: Mental Status: She is alert and oriented to person, place, and time. GCS: GCS eye subscore is 4. GCS verbal subscore is 5. GCS motor subscore is 6. Cranial Nerves: No dysarthria or facial asymmetry. Motor: Weakness present. Gait: Gait abnormal. Deep Tendon Reflexes: Babinski sign absent on the right side. Babinski sign absent on the left side. Psychiatric: Mood and Affect: Mood is depressed. Speech: Speech normal. Behavior: Behavior normal. Thought Content: Thought content normal. Judgment: Judgment normal. Assessment and plan 1. Leg edema Bilateral, Will get Doppler to r/o DVT - CBC WITH WBC DIFFERENTIAL; Future - COMPREHENSIVE METABOLIC PANEL; Future - BNP (NT-PROBNP); Future - VASC DUPLEX VENOUS LE BILAT; Future 2. Pain of left calf Will get doppler to r/o VTE - CBC WITH WBC DIFFERENTIAL; Future - COMPREHENSIVE METABOLIC PANEL; Future - BNP (NT-PROBNP); Future - VASC DUPLEX VENOUS LE BILAT; Future 3. SOB (shortness of breath) - XR CHEST 2 VIEWS; Future 4. Restrictive lung disease 5. THAD on CPAP 6. Chronic diastolic (congestive) heart failure (HCC) Patient is not compliant on CHF meds, per chart review. Recommend restart recommended meds and f/u with PCP and cardiology in 2-3 days Suspect fluid-overload is causing worsening LE pain/swelling and increased SOB - XR CHEST 2 VIEWS; Future 7. Portal hypertensive gastropathy (HCC) - XR CHEST 2 VIEWS; Future 8. Wheelchair dependent 9. Folliculitis Anterior LLE, on christine, 1cm area of erythema. - Mupirocin 2 % External Ointment (Bactroban); Apply topically to affected area 3 times a day for 14 days. To affected area for up to 14 days. Dispense: 22 g; Refill: 1 Follow up Blood work, Xray, and ultrasound of legs at [facility]. Antibiotic ointment three times a day to left leg for 10 days. Continue all maintenance medications. Ensure you are taking spironolactone 50mg a day and lasix 20mg three times a day. Follow-up with PCP in 2-3 days. Sooner if worsens. ED if acutely worsens, or if develop increasing shortness of breath, chest pain, lightheaded/dizziness. The above was discussed and understanding was expressed. Tom Poe PA-C documented in this encounter Nursing Notes * Sharon Lindquist LPN - 12/18/2021 1:54 PM EDT Shaina Bustos is a 66 year old female who presents to walk-in clinic today complaining of Chief Complaint Patient presents with Pain left lower leg pain Main Symptoms:left lower leg pain Cause: unknown How lon-2 weeks Tried: nothing Pt accompanied by: documented in this encounter Plan of Treatment Upcoming Encounters Date Type Specialty Care Team Description 12/20/2021 Pre-Admission Testing PreSurgery Glh, Psae [address] [place] [address] 12/22/2021 Office Visit Endocrinology Alberta Duque PA-C [address] [facility] [place] [address] 12/23/2021 Office Visit Gastroenterology Lyssa Stout CRNP [address] [place] [address] 12/25/2021 Nurse Only Ancillary Gl, Pre Surgical Covid Testing [address] [place] [address] 12/27/[address] [facility] Mobile Home Draw [address] [place] [address] 12/27/2021 Hospital Encounter Surgery Concetta Khan MD [address] [place], [place] [id number] 12/27/2021 Surgery Surgery Concetta Khan MD 400 [facility] [place] [id number] HYSTEROSCOPY WITH BIOPSY AND/OR POLYPECTOMY WITH OR WITHOUT D&C 12/30/2021 Home Visit [facility] July Poe RN [address] [place] [address] 01/04/2022 Hem/Onc Treatment Hematology Oncology [place], Chair [address] [address] 01/04/2022 Office Visit Hematology Oncology Tono Sanchez MD [address] [place] [address] 01/10/[address] [facility], [facility] Mobile Home Draw [address] [place] [address] 01/11/2022 Office Visit Gynecology Obstetrics Concetta Khan MD [address] [place] [address] 01/13/2022 Home Visit Family Medicine Kaylee Barakat, [facility] Certified Cytotechnologist [address] [place] [address] 01/24/2022 Laboratory Laboratory Processing [facility] Mobile Home Draw [address] [place] [address] 01/27/2022 Office Visit [address] [address] 01/28/2022 Hem/Onc Treatment Hematology Oncology [place], Chair 1 Hem Onc [address]ery [address] [place] [address] 02/07/2022 Laboratory Laboratory Processing [facility] Mobile Home Draw [address] [place] [address] 02/18/2022 Hem/Onc Treatment Hematology Oncology [place], Chair 1 Hem Onc [address] [place] [address] 02/21/2022 Laboratory Laboratory Processing c, [facility] Mobile Home Draw [address] [place] [address] 03/07/2022 Laboratory Laboratory Processing [facility] Mobile Home Draw [address] [place] [address] 03/11/2022 Hem/Onc Treatment Hematology Oncology [place], Chair 1 Hem Onc [address] [place] [address] 03/24/2022 Office Visit Pulmonary Reynaldo Marquez MD [address] [place] [address] 04/01/2022 Hem/Onc Treatment Hematology Oncology [place], Chair 1 Hem Onc Sc[address] [place], [place] [address] 04/22/2022 Hem/Onc Treatment Hematology Oncology [place], Chair 1 Hem Onc Sc[address]ery [address] [place] [address] 05/05/2022 Office Visit Cardiology Quyen Canseco CRNP 132 [place] [address] 06/24/2022 Office Visit Sleep Disorders Love Francisco [facility] [address] [facility] [address] Scheduled Orders Name Type Priority Associated Diagnoses Orde r Schedule CBC WITH WBC DIFFERENTIAL Lab STAT Leg edema Pain of left calf Expected: 12/18/2021, Expires: 01/17/2022 COMPREHENSIVE METABOLIC PANEL Lab STAT Leg edema Pain of left calf Expected: 12/18/2021, Expires: 01/17/2022 BNP (NT-PROBNP) Lab STAT Leg edema Pain of left calf Expected: 12/18/2021, Expires: 01/17/2022 XR CHEST 2 VIEWS Medical Imaging STAT SOB (shortness of breath) Restrictive lung disease THAD on CPAP Chronic diastolic (congestive) heart failure (HCC) Portal hypertensive gastropathy (HCC) Wheelchair dependent Expected: 12/18/2021, Expires: 01/17/2022 VASC DUPLEX VENOUS LE BILAT Medical Imaging STAT Leg edema Pain of left calf Expected: 12/18/2021, Expires: 01/17/2022 Scheduled Procedures Name Priority Associated Diagnoses Date/Ti [...] of this encounter Implants Implanted Type Area Leases And Land Supervisor Device Identifier Shelf Expiration Date Model / Serial / Lot Microtech Sure Clip Implanted:Qty: 2 on 06/03/2020 by Janis Hatch DO at OR [facility] Clip N/A: Colon 04/21/2022 [facility]-F-26-2 35-C-R / / [id number] documented as of this encounter Visit Diagnoses Diagnosis Leg edema- Primary Edema Pain of left calf Pain in limb SOB (shortness of breath) Shortness of breath Restrictive lung disease Other diseases of lung, not elsewhere classified THAD on CPAP Obstructive sleep apnea (adult) (pediatric) Chronic diastolic (congestive) heart failure (HCC) Portal hypertensive gastropathy (HCC) Other specified disorder of stomach and duodenum Wheelchair dependent Wheelchair dependence Folliculitis Other specified disease of hair and hair follicles PMB (postmenopausal bleeding) Postmenopausal bleeding documented in this encounter Advance Directives Documents on File Type Date Recorded Patient Field Contractor 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 WILL AND HEALTH CARE POA Power of Nursing Informatics Clinical Analyst 04/29/2021 12:00 AM TOM R OF [employer] HOME HEALTH CARE POA Advanced Directive 04/01/2021 1:14 [...] Agents on File Name Relationship Healthcare Agent [facility] p Communication Syed Bustos Spouse Emergency Contact Care Teams Perinatal Specialist Relationship Specialty Start Date End Date Vanita Dunn MD [address] [place] [address] PCP - General Family Medicine 03/16/21 documented as of this encounter
--- OUTSIDE RECORDS SUMMARY | 2023-05-10 19:06 | External Medical Summary | Summary of Care ---
Author Name Unknown Organization [facility] Address [place] [address] Care Team Providers Care Waredresser Name Role Phone Vanita Dunn MD Primary Care Provid er Reason for Visit * Reason Onset Date Comments Test Results Imaging Study 12/18/2021 Encounter Details Date Type Department Care Team Description 12/18/2021 Telephone [facility] [address] [place] [address] Vanita Dunn MD [address] [place] [address] Test Results Imaging Study Allergies Active Allergy Reactions Severity Noted Date [...] 120 Vial 11 10/02/2019 Active nystatin (NYSTOP) 438045 UNIT/GM powder Apply topically to affected area [...] of Breath, Informant: Pharmacy, Reported on 02/04/2021 [employer] G6 Pre Owned Sales Consultant Device Use as directed. To test [...] Strip 3 10/29/2020 Active OneTouch Delica Plus [id number] TESTING once daily 100 Each 3 10/29/2020 [...] pain 01/24/2012 01/17/2017 Genetic Sleep Disorder Research Other*[id number] 05/13/2011 04/07/2016 Obstructive sleep apnea 01/18/2011 12/27/19 [...] Telephone Encounter - Tom Poe PA-C - 12/18/2021 6:32 PM EDT Patient aware of negative bilat doppler and incidental finding of L humeral head sublux/dislocation Will go to ER for further work-up and management * Telephone Encounter - Francisca Hassan LPN - 12/18/2021 5:22 PM EDT Patient is still at [facility] called cell phone and spoke with both her and . Xray is showing a subluxation/dislocation of Left humeral head found on xray of chest JEYSON poe is recommending ER Visit for TX. Explained this to patient and she does not want to go to er wants to go get something to eat Explained that if she needed surgery on shoulder that they would want her NPO Patient agreed to go to ER documented in this encounter Plan of Treatment Upcoming Encounters Date Type Specialty Care Team Description 12/20/2021 Pre-Admission Testing PreSurgery Gl, Psae [address] [place] [address] 12/22/2021 Office Visit Endocrinology Alberta Duque PA-C [address] [place] [address] 12/23/2021 Office Visit Gastroenterology Lyssa Stout CRNP [address] [place] [address] 12/25/2021 Nurse Only Ancillary [facility], Pre Surgical Covid Testing [address] [place] [address] 12/27/2021 Laboratory Laboratory Processing [facility] Mobile Home Draw [address] [place] [address] 12/27/2021 Hospital Encounter Surgery Concetta Khan MD [address] [place], [place] [id number] 12/27/2021 Surgery Surgery Concetta Khan MD [address] [place], [place] [phone] HYSTEROSCOPY WITH BIOPSY AND/OR POLYPECTOMY WITH OR WITHOUT D&C 12/30/2021 Home Visit [facility] July Poe, RN [address] [place] [address] 01/04/2022 Hem/Onc Treatment Hematology Oncology [place], Chair 6 Hem Onc Scenery [address] [place] [address] 01/04/2022 Office Visit Hematology Oncology Tono Sanchez MD [address] [place] [address] 01/10/2022 Laboratory Laboratory Processing [facility] Mobile Home Draw [address] [place] [address] 01/11/2022 Office Visit Gynecology Obstetrics Concetta Khan MD [address] [place] [id number] 01/13/2022 Home Visit Family Medicine Kaylee Barakat, [facility] Masking Machine Feeder [address] [place] [address] 01/24/2022 Laboratory Laboratory Processing [facility] Mobile Home Draw [address] [place] [address] 01/27/2022 Office Visit [address] [address] 01/28/2022 Hem/Onc Treatment Hematology Oncology [place], Chair 1 Hem Onc Scenery [address] [facility] [address] 02/07/2022 Laboratory Laboratory Processing [facility] Draw [address] [place] [address] 02/18/2022 Hem/Onc Treatment Hematology Oncology [place], Chair 1 Hem Onc Scenery [address] [facility] [address] 02/21/2022 Laboratory Laboratory Processing [facility] Mobile Home Draw [address] [place] [address] 03/07/2022 Laboratory Laboratory Processing [facility] Mobile Home Draw [address] [place] [address] 03/11/2022 Hem/Onc Treatment Hematology Oncology [place], Chair 1 Hem Onc [address] [place] [address] 03/24/2022 Office Visit Pulmonary Reynaldo Marquez MD [address] [place] [id number] 04/01/2022 Hem/Onc Treatment Hematology Oncology [place], Chair 1 Hem Onc Sc[address]ery [address] [place] [address] 04/22/2022 Hem/Onc Treatment Hematology Oncology [place], Chair 1 Hem Onc [address] [place] [address] 05/05/2022 Office Visit Cardiology Quyen Canseco CRNP [address] [place] [address] 06/24/2022 Office Visit Sleep Disorders Love Francisco DO [address] [place] [address] Scheduled Procedures Name Priority Associated Diagnoses Date/Ti [...] of this encounter Implants Implanted Type Area Bit Setter Device Identifier Shelf Expiration Date Model / Serial / Lot Microtech Sure Clip Implanted:Qty: 2 on 06/03/2020 by Janis Hatch DO at OR [facility] Clip N/A: Colon 04/21/2022 [facility]-F-26-2 35-C-R / / [id number] documented as of this encounter Advance Directives Documents on File Type Date Recorded 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
--- OUTSIDE RECORDS SUMMARY | 2023-05-10 19:06 | External Medical Summary | Summary of Care ---
Author Name Unknown Organization [facility] Address [place] [address] Care Team Providers Care Production Planning Manager Name Role Phone Vanita Dunn MD Primary Care Provid er Reason for Visit * Reason Onset Date Comments Test Results 12/20/2021 Encounter Details Date Type Department Care Team Description 12/20/2021 Telephone [facility] 174 [facility] [place] [address] Vicki Darnell PA-C 174 [facility] [place] [address] Test Results Allergies Active Allergy Reactions Severity [...] 120 Vial 11 10/02/2019 Active nystatin (NYSTOP) 250342 UNIT/GM powder Apply topically to affected area [...] of Breath, Informant: Pharmacy, Reported on 02/04/2021 [employer] G6 Director Of [facility] Device Use as directed. To test blood [...] Strip 3 10/29/2020 Active OneTouch Delica Plus [id number] TESTING once daily 100 Each 3 10/29/2020 [...] pain 01/24/2012 01/17/2017 Genetic Sleep Disorder Research Other*[id number] 05/13/2011 04/07/2016 Obstructive sleep apnea 01/18/2011 12/27/19 [...] encounter Miscellaneous Notes * Telephone Encounter - Vicki Darnell PA-C [...] 12/20/2021 Pre-Admission Testing PreSurgery Glh, Psae [address] [facility] [address] 12/22/2021 Office Visit Endocrinology Alberta Duque PA-C [address] [place] [address] 12/23/2021 Office Visit Gastroenterology Lyssa Stout CRNP 132 [facility] [place] [id number] 12/25/2021 Nurse Only Ancillary Glh, Pre Surgical Covid Testing [address] [place] [address] 12/27/2021 Laboratory Laboratory Processing [facility] Mobile Home Draw [address] [place] [address] 12/27/2021 Hospital Encounter Surgery Concetta Khan MD 400 [facility] [place] [id number] 12/27/2021 Surgery Surgery Concetta Khan MD 400 [facility] [place], [place] [id number] HYSTEROSCOPY WITH BIOPSY AND/OR POLYPECTOMY WITH OR WITHOUT D&C 12/30/2021 [facility] Visit [facility] Poe, RN [facility] [place] [address] 01/04/2022 Hem/Onc Treatment Hematology Oncology Pharr, Chair 6 Hem On[address] [place] [address] 01/04/2022 Office Visit Hematology Oncology Tono Sanchez MD 200 [place] [address] 01/10/2022 Laboratory Laboratory Processing [facility] Mobile Home Draw [address] [place] [address] 01/11/2022 Office Visit Gynecology Obstetrics Concetta Khan MD [address] [place], [place] [phone] 01/13/2022 Home Visit Family Medicine Kaylee Barakat, Community [facility] Cashier Tube Room [address] [place] [address] 01/24/2022 Laboratory Laboratory Processing [facility] Mobile Home Draw [address] [place] [address] 01/27/2022 Office Visit [address] [address] 01/28/2022 Hem/Onc Treatment Hematology Oncology Pharr, Chair 1 Hem Onc Scenery [address] [place] [address] 02/07/2022 Laboratory Laboratory Processing [facility], [facility] Mobile Home Draw [address] [place] [address] 02/18/2022 Hem/Onc Treatment Hematology Oncology Pharr, Chair 1 Hem Onc Scenery [address] [place] [address] 02/21/2022 Laboratory Laboratory Processing [facility] Mobile Home Draw [address] [place] [address] 03/07/2022 Laboratory Laboratory Processing [facility] Mobile Home Draw [address] [place] [address] 03/11/2022 Hem/Onc Treatment Hematology Oncology [place], Chair 1 Hem Onc Scenery [address] [place] [address] 03/24/2022 Office Visit Pulmonary Reynaldo Marquez MD [address] [place] [address] 04/01/2022 Hem/Onc Treatment Hematology Oncology [place], Chair 1 Hem Onc Scenery [address] [facility] [address] 04/22/2022 Hem/Onc Treatment Hematology Oncology [place], Chair 1 Hem Onc Scenery [address] [place] [address] 05/05/2022 Office Visit Cardiology Quyen Canseco CRNP [address] 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
--- OUTSIDE RECORDS SUMMARY | 2023-05-10 19:06 | External Medical Summary | Summary of Care ---
Author Name Unknown Organization [place] [address] Care Team Providers Care Classroom Assistant Name Role Phone Vanita Dunn MD Primary Care Provid er Reason for Visit * Reason Comments Pre-op Clearance Dr. Concetta Khan [facility] Lump Lump on left leg Encounter Details Date Type Department Care Team Description 12/15/2021 Office Visit [place] [address] [place] [address] Vanita Dunn MD [address] [place] [address] Preop examination*; Folliculitis 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 documented as of this encounter (statuses as of 12/19/2021) Medications Medication Sig Dispensed Refills Start Date End Date Status albuterol sulfate (PROVENTIL) (2.5 MG/3ML) 0.083% nebulizer solutionIndications :Pulmonary vascular congestion Inhale 1 Vial via nebulizer every 6 hours as needed for Wheezing. 120 Vial 11 0 Active nystatin (NYSTOP) 510822 UNIT/GM powder Apply topically to affected area 3 times a day. 60 g 1 0 Active Albuterol Sulfate (ALBUTEROL HFA) 108 (90 BASE) MCG/ACT inhalerIndications: Intermittent asthma with reliever use up to twice per week without complication Inhale 2 Puffs by mouth every 4 hours as needed for Cough or Wheezing. With spacer 16 g 1 0 Active Ipratropium-Albuter ol 0.5-2.5 (3) MG/3ML Inhalation Solution (DUONEB)Indications :Moderate persistent asthma with acute exacerbation Inhale 3 mL via nebulizer 4 times a day. 3 mL 10 0 Active Additional Information Patient taking differently: 3 mL Nebulizer QID PRN, Shortness of Breath, Informant: Pharmacy, Reported on 02/04/2021 Dexcom G6 Merchandising Lead Device Use as directed. To test blood sugars 4 times a day Dx E11.9 1 Each 0 1 Active Dexcom G6 Transmitter Use as directed. To test blood sugars 4 times a day. Change every 90 days. Dx E11.9 1 Each 3 1 Active Lidocaine-Prilocain e 2.5-2.5 % External Cream (Emla)Indications:I roshan deficiency anemia due to chronic blood loss,Pancytopenia (HCC) Apply topically to affected area as needed for Other (for port). APPLY TO SKIN OVER MEDIPORT & COVER 1HR PRIOR TO ACCESSING. 30 g 3 1 Active OneTouch Verio In Vitro Strip (Glucose Blood) TESTING once daily 100 Strip 3 1 Active OneTouch Delica Plus Evfcym94P TESTING once daily 100 Each 3 1 [...] AT BEDTIME 90 Tab 3 1 Active Potassium Chloride ER 10 MEQ Oral Tablet Extended ReleaseIndications: Hypokalemia TAKE 1 TABLET BY MOUTH ONCE DAILY WITH FOOD 90 Tab 3 1 Active Pantoprazole Sodium [...] than 7.0% ([facility]) USE TO INJECT INSULIN FOUR TIMES DAILY. [...] 2 times a day. 10.2 g 1 2 Active Dexcom G6 [...] EXTREMITY SWELLING 90 Tablet 0 2 Active Spironolactone 25 MG Oral Tablet (Aldactone) Take 2 Tabs by mouth daily. 60 Tab 5 1 12/17/19 22 Discontinued documented as of this encounter (statuses as of 12/19/2021) Active Problems Problem Noted Date Food insecurity [...] as of this encounter (statuses as of 12/19/2021) Resolved Problems Problem Noted Date Resolved Date [...] pain 01/24/2012 01/17/2017 Genetic Sleep Disorder Research Other*[id number] 05/13/2011 04/07/2016 Obstructive sleep apnea 01/18/2011 12/27/19 [...] as of this encounter (statuses as of 12/19/2021) Immunizations Name Administration Dates Next Due COVID-19 [...] Sign Reading Time Taken Comments Blood Pressure 124/76 12/15/2021 1:59 PM EDT Pulse 66 12/15/2021 1:59 PM EDT Temperature 36.6 C (97.8 F) 12/15/2021 1:59 PM ED T Respiratory Rate - - Oxygen Saturation 93% 12/15/2021 1:59 PM EDT Inhaled Oxygen Concentration - - [...] Progress Notes * Vanita Dunn MD - 12/15/2021 2:27 PM EDT Nursing Notes: Tamara Fabian LPN 12/15/21 1405 Signed Chief Complaint Patient presents with Pre-op Clearance Dr. Concetta Khan 12/27/2021 [facility] Lump Lump on left leg HPI: Shaina Bustos is a 66 year old female who is referred to me for pre operative exam. PMHx includes: wheelchair bound, h/o CP, chronic diastolic HF, cirrhosis of liver NG complicated by esoph varices and portal hypertensive gastropathy, T2DM, morbid obesity, htn, hld , THAD on CPAP and chronic pain Denies recent fever, cough, or URI symptoms. Procedure: diagnostic hysteroscopy, dilation and curettage, possible loop electrosurgical excision of the cervix Surgeon: Dr. Hylton Date of surgery: 12/27/21 Anesthesia: unknown Past surgical history reviewed. H/o complications from anesthesia: none known Functional capacity ( classified as excellent (>10 METS), good (7 METs to 10 METS), moderate (4 METs to 6 METS), poor (<4 METS), or unknown) calculated today using the [place] Activity Status Index (DASI) -- Perioperative cardiac and long- term risks are increased in patients unable to perform 4 METs of work during daily activities. This patient's estimated functional capacity is <4 Patient Active Problem List Diagnosis Code Venous [...] 8.0% ([facility]) E11.9 Vitamin D deficiency E55.9 Restrictive lung disease J98.4 Obesity, morbid (more than 100 lbs over ideal weight or BMI > 40) ([facility]) E66.01 Dyslipidemia E78.5 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 R39.81 Acquired hypothyroidism E03.9 Chronic pain syndrome G89.4 MEDICATION USE AGREEMENT [id number] Cirrhosis of liver (HCC) K74.60 THAD on CPAP G47.33, Z99.89 Wheelchair dependent Z99.3 DM type 2 with diabetic peripheral neuropathy (HCC) E11.42 Primary insomnia F51.01 Recurrent major depressive disorder, in partial remission ([facility]) F33.41 Impaired mobility and ADLs Z74.09, Z78.9 Gastroesophageal reflux disease K21.9 Fibromyalgia M79.7 Thrombocytopenia (HCC) D69.6 Iron deficiency anemia due to chronic blood loss D50.0 Esophageal varices (HCC) I85.00 Portal hypertensive gastropathy (HCC) K76.6, K31.89 Chronic diastolic (congestive) heart failure (HCC) I50.32 Food insecurity Z59.41 Current Outpatient Medications Medication Sig Dispense Refill albuterol sulfate (PROVENTIL) (2.5 MG/3ML) 0.083% nebulizer solution Inhale 1 Vial via nebulizer every 6 hours as needed for Wheezing. 120 Vial 11 nystatin (NYSTOP) 458430 UNIT/GM powder Apply topically to affected area [...] of Breath.) 3 mL 10 Dexcom G6 Merchandising Lead Device Use as directed. To test blood [...] daily 100 Strip 3 OneTouch Delica Plus [id number] TESTING once daily 100 Each 3 Nitroglycerin [...] ONCE DAILY AT BEDTIME 90 Tab 3 Potassium Chloride ER 10 MEQ Oral Tablet Extended Release TAKE 1 TABLET BY MOUTH ONCE DAILY WITH FOOD 90 Tab 3 Pantoprazole Sodium 20 MG [...] Lantus SoloStar 100 UNIT/ML Subcutaneous Solution Pen-injector Mupirocin 2 % External Ointment (Bactroban) Apply topically to affected area 3 times a day for 14 days. To affected area for up to 14 days. 22 g 1 No current facility-administered medications for this visit. 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 12/27/2010 Lymphedema 03/11/2013 MEDICATION USE AGREEMENT 03/27/2012 03/27/12 Myalgia and myositis 03/27/2012 NG (nonalcoholic steatohepatitis) 05/02/2012 Other specified infantile cerebral palsy Oxygen dependent 04/08/2019 Primary insomnia 04/04/2019 Restrictive lung disease 12/2014 Sleep apnea CPAP Sleep apnea, obstructive Sleep disturbance 01/24/2012 Type 2 diabetes mellitus with hemoglobin A1c goal of less than 8.0% ([facility]LY [facility]) 09/26/2013 ICD-10 update of inactive term Past Surgical History: Procedure Laterality Date BONE DEBRIDEMENT, FIRST 20 CM2 Right 04/16/2020 DEBRIDEMENT SKIN SUBCUTANEOUS TISSUE MUSCLE AND BONE performed [place] Josh Vazquez [place] [facility] [place] 04/20/1982 COLONOSCOPY 04/21/2009 repeat in 10 years COLONOSCOPY, DIAGNOSTIC (RECTUM) 10/04/2016 normal bx, repeat 10 yrs/[facility] COLONOSCOPY, DIAGNOSTIC (RECTUM) N/A 06/03/2020 internal hemorrhoids/biopsies show adenomatous polyps/recall 5 years/COLONOSCOPY FLEXIBLE PROXIMAL DIAGNOSTIC performed by Janis Hatch DO at OR [facility] COLONOSCOPY, DIAGNOSTIC (RECTUM) 03/17/2020 poor prep / [facility] DENTAL SURGERY PROCEDURE NEC wisdom teeth x 4 DILATION AND CURETTAGE (D&C) EGD, FLEXIBLE, DIAGNOSTIC 10/04/2016 gastritis/[facility] EGD, FLEXIBLE, DIAGNOSTIC 01/11/2018 eso varices, retained food, repeat 1 yr/[facility] EGD, FLEXIBLE, DIAGNOSTIC N/A 06/03/2020 severe erosive esophagitis/non-bleeding grade II esophageal varices/gastritis/biopsies show inflammatory changes/repeat 3-4 months/ESOPHAGOGASTRODUODENOSCOPY (EGD), FLEXIBLE, TRANSORAL, DIAGNOSTIC per formed by Janis Hatch DO at OR [facility] EGD, FLEXIBLE, DIAGNOSTIC 11/27/2019 eso varices, portal hypertensive gastropathy, gastritis / [facility] EGD, FLEXIBLE, DIAGNOSTIC N/A 08/05/2020 large amount of food in stomach/repeat 1.5 years/ESOPHAGOGASTRODUODENOSCOPY (EGD), FLEXIBLE, TRANSORAL, DIAGNOSTIC performed by Janis Hatch DO at OR [facility] EGD, FLEXIBLE, DIAGNOSTIC N/A 03/10/2021 ESOPHAGOGASTRODUODENOSCOPY (EGD), FLEXIBLE, TRANSORAL, DIAGNOSTIC performed by Kris Blankenship MD at [place] [facility] [place] VENOUS ACCESS MEDIPORT 10/05/2020 PELVIS/HIP JOINT SURGERY NEC teenager aid in walking REPAIR/GRAFT ACHILLES TENDON age 40 aid in walking Social History Socioeconomic History Marital status: Spouse name: Syed Em" Number of children: 1 Years of education: Not on file Highest education level: Not on file Occupational History Not on file Tobacco Use Smoking status: Never Smoker Smokeless tobacco: Never Used Vaping Use Vaping Use: Never used Substance and Sexual Activity Alcohol use: No Comment: rare Drug use: No Comment: too much soda Sexual activity: Not Currently Partners: Male Other Topics Concern Not on file Social History Narrative 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49 education: 12 service: no hobbies/interests: reading transfusions: no exercise: no diet: no scientologist/moravian: Raised yarsani marital status: 2nd time 11/15 children: 1 [...] on file Housing Stability: Not on file ROS EXAM: CONSTITUTIONAL: No change in weight, No weakness, No fatigue and No fevers, sweats, or chills PULMONARY: No cough, sputum, or hemoptysis, No wheezing, No rales, No shortness of breath and No recent change in breathing CARDIOVASCULAR: No chest pain, No shortness of breath, No dyspnea on exertion, No orthopnea, No paroxysmal nocturnal dyspnea, No edema, No palpitations and No syncope GASTROINTESTINAL: No abdominal pain, No change in bowel habits, No significant heartburn, No significant change in appetite, No nausea, vomiting, diarrhea, or constipation, No hematemesis, No blood in stools or black tarry stools, No abdominal bloating or early satiety and No dysphagia Filed Vitals: 12/15/21 1359 BP: 124/76 Pulse: 66 Temp: 36.6 C (97.8 F) TempSrc: Tympanic SpO2: 93% Physical Exam Vitals reviewed and is normotensive afebrile and not tachycardic and pulse ox 93% General: No acute distress. Neuro: Alert Pleasant & interactive. Sitting upright in her wheelchair. Respiratory: Good inspiratory effort, no labored breathing. HEENT: Conjunctivae appear clear. No swelling noted face or lips. Skin: No rash visible on exposed skin areas, normal coloration &appears dry. Small area of inflamed hair follice on left lower leg, no fluctuance or warmth. Psych: Normal affect. Fluent speech. ASSESSMENT: Based upon this interview, examination and review of labwork (if relevant), patient is deemed a MOD/HIGH risk for complications of surgery. Her comorbidities are medically optimized. Acceptable risk for surgery, may elect to proceed. Patient had adequate time to have questions answered and seemed satisfied with answers. Patient wasinvited to call back with any other concerns as they might arise prior to or after surgery. I will reach out personally via staff message to the patient's surgeon with any questions. CC: referring physician Preop examination (Primary) Folliculitis discussed small area of inflamed hair follicle on left lower leg - clinically improving - recommendsoap/water, vaseline, bandaid as needed and should resolve. documented in this encounter Nursing Notes * Tamara Fabian LPN - 12/15/2021 1:57 PM EDT Chief Complaint Patient presents with Pre-op Clearance Dr. Concetta Khan 12/27/2021 [facility] Lump Lump on left leg documented in this encounter Plan of Treatment Upcoming Encounters Date Type Specialty Care Team Description 12/20/2021 Pre-Admission Testing PreSurgery Glh, Psae [address] [place] [place] [address] 12/22/2021 Office Visit Endocrinology Alberta Duque PA-C [address] [facility] [place] [place] [id number] 12/23/2021 Office Visit Gastroenterology Lyssa Stout CRNP [address] [facility] [place] [address] 12/25/2021 Nurse Only Ancillary Glh, Pre [facility] [place] [address] 12/27/2021 Laboratory Laboratory Processing [facility], [facility] Mobile Home Draw [address] [place] [address] 12/27/2021 Hospital Encounter Surgery [facility] MD [facility] [place] [address] 12/27/2021 Surgery Surgery Concetta Khan MD [address] [facility] [place] [id number] HYSTEROSCOPY WITH BIOPSY AND/OR POLYPECTOMY WITH OR WITHOUT D&C 12/30/2021 Home Visit [facility] July Poe RN [address] [place] [address] 01/04/2022 Hem/Onc Treatment Hematology Oncology [place], Chair [address] [address] 01/04/2022 Office Visit Hematology Oncology Tono Sanchez MD [address] [place] [address] 01/10/2022 Laboratory Laboratory Processing [facility], [facility] Mobile Home Draw [address] [place] [address] 01/11/2022 Office Visit Gynecology Obstetrics [facility] [place] [address] 01/13/2022 Home Visit Family Medicine Kaylee Barakat, Community Health Cap Inspector [address] [place] [address] 01/24/2022 Laboratory Laboratory Processing [facility], [facility] Mobile Home Draw [address] [place] [address] 01/27/2022 Office Visit [address] [address] 01/28/2022 Hem/Onc Treatment Hematology Oncology [place], Chair 1 Hem Onc [address] [place] [address] 02/07/2022 Laboratory Laboratory Processing [facility], [facility] Mobile Home Draw [address] [place] [address] 02/18/2022 Hem/Onc Treatment Hematology Oncology [place], Chair 1 Hem Onc [address]enery [address] [place] [address] 02/21/2022 Laboratory Laboratory Processing [facility], [facility] Mobile Home Draw [address] [place] [address] 03/07/2022 Laboratory Laboratory Processing [facility], [facility] Mobile Home Draw [address] [place] [address] 03/11/2022 Hem/Onc Treatment Hematology Oncology [place], Chair 1 Hem Onc [address] [place] [address] 03/24/2022 Office Visit Pulmonary Reynaldo Marquez MD [address] [place] [address] 04/01/2022 Hem/Onc Treatment Hematology Oncology [place], Chair 1 Hem Onc [address] [place] [address] 04/22/2022 Hem/Onc Treatment Hematology Oncology [place], Chair 1 Hem Onc [address] [place] [address] 05/05/2022 Office Visit Cardiology Quyen Canseco CRNP [address] [place] [address] 06/24/2022 Office Visit Sleep Disorders Love Francisco DO 132 [place] [address] Scheduled Procedures Name Priority Associated Diagnoses Date/Ti [...] of this encounter Implants Implanted Type Area Car Cooper Device Identifier Shelf Expiration Date Model / Serial / Lot Microtech Sure Clip Implanted:Qty: 2 on 06/03/2020 by Janis Hatch DO at OR [facility] Clip N/A: Colon 04/21/2022 [facility]-F-26-2 35-C-R / / [id number] documented as of this encounter Visit Diagnoses Diagnosis Preop examination- Primary Preoperative examination, unspecified Folliculitis Other specified disease of hair and hair follicles PMB (postmenopausal bleeding) Postmenopausal bleeding documented in this encounter Advance Directives Documents on File Type Date Recorded Patient It Application Development Manager 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 WILL AND HEALTH CARE POA Power of House Detective 04/29/2021 12:00 AM TOM R OF CUT OFF [facility] POA Advanced Directive 04/01/2021 1:14 [...] Relationship Healthcare Agent [facility] Communication Syed Bustos Spouse Emergency Contact Care Teams Classroom Assistant Relationship Specialty Start Date End Date Vanita Dunn MD [address] [place] [address] PCP - General Family Medicine 03/16/21 documented as of this encounter
--- OUTSIDE RECORDS SUMMARY | 2023-05-10 19:07 | External Medical Summary | Summary of Care ---
Author Name Unknown Organization [facility] Address [facility] [place] [address] Care Team Providers Care Fibre Technologist Name Role Phone Vanita Dunn MD Primary Care Provid er Reason for Visit * Reason Comments IV Therapy venofer Encounter Details Date Type Department Care Team Description 12/17/2021 Hem/Onc Treatment Hematology/Oncology Treatment, [place] [address] [place] [address] Maryellen, Chair 2 Hem Onc Scenery [address] [facility] [place] [address] Iron deficiency anemia due to chronic blood loss* 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 documented as of this encounter (statuses as of 12/17/2021) Medications Medication Sig Dispensed Refills Start Date End Date Status albuterol sulfate (PROVENTIL) (2.5 MG/3ML) 0.083% nebulizer solutionIndications: Pulmonary vascular congestion Inhale 1 Vial via nebulizer every 6 hours as needed for Wheezing. 120 Vial 11 10/02/2019 Active nystatin (NYSTOP) 302947 UNIT/GM powder Apply topically to affected area 3 times a day. 60 g 1 10/16/2019 Active Additional Information Patient not taking. Informant: Pharmacy, Reported on 11/04/2021 Albuterol Sulfate (ALBUTEROL HFA) 108 (90 BASE) [...] of Breath, Informant: Pharmacy, Reported on 02/04/2021 DexUPR-Online G6 Chief Crew Scheduler Device Use as directed. To test blood [...] Strip 3 10/29/2020 Active OneTouch Delica Plus [id number] TESTING once daily 100 Each 3 10/29/2020 Active Nitroglycerin 0.4 MG Sublingual Tablet Sublingual (Nitrostat) Place 1 Tab under the tongue every 5 minutes as needed for Pain, Chest. up to 3 doses in 15 minutes 25 Tab 11 03/03/2021 Active Additional Information Patient not taking. Reported on 11/04/2021 BiPAP every night at bedtime. 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 Possible barriers to meeting goals: possible reaction to treatment Stability of the patient: Moderately stable - low risk of patient condition declining or worsening Summary regarding today's goals: Met: pt tolerated treatment well and remained free from injury Patient discharged in stable condition. * Vicki Johns RN - 12/17/2021 1:23 PM EDT Pt in chair#11 present for venofer infusion. Pt is wheelchair bound, states she will sit in her motorized wheelchair during infusion. Pt has a safety belt in place. s. [facility] Care Plan ID is not set. 12/17/2021 Safety and Risk for Injury Patient will remain free from injury. Assess patient's risk for falls per policy. Encourage activity as ordered per policy. Ensure appropriate safety devices are available. Implement fall prevention plan of care per policy. Include patient and caregiver in decisions related to safety. Perform safety rounds per policy. Provide and maintain safe environment. Use appropriate transfer methods. Call button given to patient Goals: pt will not fall while in IV clinic Possible barriers to meeting goals: IV pole, pt is wheelchair bound Stability of the patient: Moderately unstable - medium risk of patient condition declining or worsening Summary regarding today's goals: Met: pt did not fall while in IV clinic Vicki Johns RN documented in this encounter Plan of Treatment Upcoming Encounters Date Type Specialty Care Team Description 12/20/2021 Pre-Admission Testing PreSurgery Glh, Psae [address] [place] [address] 12/22/2021 Office Visit [facility]ocrinology [facility] [address] 12/23/2021 [facility] [place] [address] 12/25/2021 Nurse Only Ancillary Glh, Pre Surgical Covid Testing [address] [place] [address] 12/27/2021 Laboratory Laboratory Processing [facility] Mobile Home Draw [address] [place] [address] 12/27/2021 Hospital Encounter Surgery Concetta Khan MD [address] [place] [address] 12/27/2021 Surgery Surgery Concetta Khan MD [address] [place], [place] [phone] HYSTEROSCOPY WITH BIOPSY AND/OR POLYPECTOMY WITH OR WITHOUT D&C 12/30/2021 [facility] July Poe RN [address] [place] [address] 01/04/2022 Hem/Onc Treatment Hematology Oncology [place], Chair [address] [address] 01/04/2022 Office Visit Hematology Oncology Tono Sanchez MD [address] [place] [address] 01/10/2022 Laboratory Laboratory Processing [facility] Mobile Home Draw [address] [place] [address] 01/11/2022 Office Visit Gynecology Obstetrics Concetta Khan MD [address] [place] [address] 01/13/2022 Home Visit Family Medicine Kaylee Barakat, [facility] Wheel Molder [address] [place] [address] 01/24/2022 Laboratory Laboratory Processing [facility] Mobile Home Draw [address] [place] [address] 01/27/2022 Office Visit [facility] [address] [address] 01/28/2022 Hem/Onc Treatment Hematology Oncology [place], Chair 1 Hem Onc Scenery [address] [place] [address] 02/07/2022 Laboratory Laboratory Processing [facility], [facility] Mobile Home Draw [address] [place] [address] 02/18/2022 Hem/Onc Treatment Hematology [place]cology [place], Chair 1 Hem Onc Scenery [address] [place] [address] 02/21/2022 Laboratory Laboratory Processing [facility], [facility] Mobile Home Draw [address] [place] [address] 03/07/2022 Laboratory Laboratory Processing [facility], [facility] Mobile Home Draw [address] [place] [address] 03/11/2022 Hem/Onc Treatment Hematology [place]cology [place], Chair 1 Hem Onc Scenery [address] [place] [address] 03/24/2022 Office Visit Reynaldo Marks MD [address] [place] [address] 04/01/2022 Hem/Onc Treatment Hematology Oncology [place], Chair 1 Hem Onc Scenery [address] [place] [address] 04/22/2022 Hem/Onc Treatment Hematology Oncology [place], Chair 1 Hem Onc Scenery [address] [place] [address] 05/05/2022 Office Visit Cardiology Quyen Canseco, ZAK [address] [place] [address] 06/24/2022 Office Visit Sleep Disorders Maryam Love HodgesDO [address] [place] [address] Scheduled Procedures Name Priority Associated Diagnoses Date/Ti [...] of this encounter Implants Implanted Type Area Habilitative Interventionist Device Identifier Shelf Expiration Date Model / Serial / Lot Microtech Sure Clip Implanted:Qty: 2 on 06/03/2020 by Janis Hatch DO at OR [facility] Clip N/A: Colon 04/21/2022 [facility]-F-26-2 35-C-R / / [id number] documented as of this encounter Visit Diagnoses [...] ONCE PRN Other, Hypersensitivity Reaction, Starting on Mon12/17/21 at 1308, Until 12/18/21 at 1307, For 24 hours EPINEPHrine 1 MG/ML inj 0.3 mg 0.3 mg, Intramuscular, ONCE PRN Other, Hypersensitivity Reaction or Anaphylaxis, Starting on Mon12/17/21 at 1308, Until 12/18/21 at 1307, For 24 hours hEParin 100 UNIT/ML Lock Flush inj 500 Units 500 Units (5 mL), IV Lock, PRN Other, IV Flush, Starting on Mon12/17/21 at 1308, Until 12/18/21 at 1307, For 24 hours, Do not flush if lock, PICC, or central line not in place; IV infusing or unable to flush. Given 12/17/2021 2:56 PM EDT 500 Units Hydrocortisone Na Succinate PF (Solu-Cortef) inj 100 mg 100 mg, IV Push, ONCE PRN Other, Hypersensitivity Reaction, Starting on Mon12/17/21 at 1308, Until 12/18/21 at 1307, For 24 hours NSS infusion 500 mL, Intravenous, at 50 mL/hr, CONTINUOUS, Starting on Mon12/17/21 at 1415, Until 12/18/21 at 0014 Start Infusion 12/17/2021 1:19 PM EDT 500 mL 50 mL/hr sodium chloride 0.9 % flush/inj 10 mL 10 mL, IV Push, PRN Other, IV Flush, Starting on Mon12/17/21 at 1308, Until 12/18/21 at 1307, For 24 hours, Do not flush if lock, PICC, or central line not in place; IV infusing or unable to flush. Given 12/17/2021 2:56 PM EDT 10 mL Inactive Administered Medications - up to 3 most recent administrations Medication Order MAR Action Action Date Dose Rate Site Iron Sucrose (Venofer) 300 mg in NSS 250 mL ivpb 300 mg, IV Piggyback, ONCE, 1 dose, On Mon12/17/21 at 1445, Administer over 90 Minutes Start Infusion 12/17/2021 1:22 PM EDT 300 mg 166.67 mL/hr documented in this encounter Advance Directives Documents on File Type Date Recorded Patient Database Report Writer 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 AND HEALTH CARE POA Power of Hand Stapler 04/29/2021 12:00 AM TOM R OF OCCUPATIONAL HEALTH NURSE MANAGER HEALTH CARE POA Advanced Directive 04/01/2021 [...] Name Relationship Healthcare Agent [facility] Communication Syed Bustos Spouse Emergency Contact Care Teams Fibre Technologist Relationship Specialty Start Date End Date Vanita Dunn MD [address] [place] [address] PCP - General Family Medicine 03/16/21 documented as of this encounter
--- OUTSIDE RECORDS SUMMARY | 2023-05-10 19:08 | External Medical Summary ---
Author Name Unknown Address Unknown Organization K01:LABORATORY C - [address] [place] [address] Laboratory Report Ordering Provider Test Date Status JACOB CORBETT 12/14/2021 07:40:00 Final Observation Date Value Abnormality Reference (Units ) Status Ferritin 12/14/2021 07:40:00 106 13-150 (ng /mL) Final Performing Location LAB[facility]ORY [facility] - [address] [place] [address]
--- OUTSIDE RECORDS SUMMARY | 2023-05-10 19:08 | External Medical Summary ---
Author Name Unknown Address Unknown Organization [facility] [address] [place] [address] Laboratory Report Ordering Provider Test Date Status JACOB CORBETT 12/14/2021 07:40:00 Final Observation Date Value Abnormality Reference (Units ) Status SYNC LEUKOCYTES IN BLOOD BY AUTOMATED COUNT 12/14/2021 07:40:00 6.10 4.00-10.80 (K/uL) Final Segs 12/14/2021 07:40:00 72.4 40.0-75.0 (%) Final Lymphs % 12/14/2021 07:40:00 7.9 Below low normal 18.0-42.0 (%) Final Monos 12/14/2021 07:40:00 13.4 Above high normal 1.0-11.0 (%) Final Eosinophils 12/14/2021 07:40:00 6.1 Above high normal 0.0-6.0 (%) Final Basos 12/14/2021 07:40:00 0.2 0.0-2.0 (%) Final Absolute Segs 12/14/2021 07:40:00 4.42 1.80-7.70 (K/uL) Final Lymphs, absolute 12/14/2021 07:40:00 0.48 Below low normal 1.00-4.80 (K/ul) Final Monos, Abs 12/14/2021 07:40:00 0.82 0.00-1.10 (K/uL) Final Eos, Abs 12/14/2021 07:40:00 0.37 0.00-0.70 (K/uL) Final Basos, Abs 12/14/2021 07:40:00 0.01 0.00-0.20 (K/uL) Final Performing Location [facility] 0 - [address] [place] [address]
--- OUTSIDE RECORDS SUMMARY | 2023-05-10 19:08 | External Medical Summary ---
Author Name Unknown Address Unknown [facility] [address] [place] [address] Laboratory Report Ordering Provider Test Date Status JACOB CORBETT 12/14/2021 07:40:00 Final Observation Date Value Abnormality Reference (Units ) Status WBC, Total 12/14/2021 07:40:00 6.10 4.00-10.8 0 (K/uL) Final RBC 12/14/2021 07:40:00 3.23 Below low normal 3.8 5-5.15 (M/uL) Final Hemoglobin 12/14/2021 07:40:00 10.2 Below low normal 12 .0-15.3 (g/dL) Final HCT 12/14/2021 07:40:00 32.6 Below low normal 36. 0-45.2 (%) Final MCV 12/14/2021 07:40:00 100.9 Above high normal 81 .5-97.5 (fL) Final MCH 12/14/2021 07:40:00 31.6 27.0-34.0 (pg) Final MCHC 12/14/2021 07:40:00 31.3 Below low normal 32. 0-36.0 (g/dL) Final RDW 12/14/2021 07:40:00 24.1 Above high normal 11 .5-15.5 (%) Final Platelets 12/14/2021 07:40:00 70 Below low normal 140 -400 (K/uL) Final MPV 12/14/2021 07:40:00 Final Performing Location LAB[facility]ORY [facility] 0 - [address] [place] [address]
--- OUTSIDE RECORDS SUMMARY | 2023-05-10 19:08 | External Medical Summary ---
Author Name Unknown Address Unknown Organization K01:LABORATORY [facility] - [address] [place] [address] Laboratory Report Ordering Provider Test Date Status JACOB CORBETT 12/14/2021 07:40:00 Final Observation Date Value Abnormality Reference (Units ) Status Iron 12/14/2021 07:40:00 55 33-151 (ug /dL) Final Iron-binding capacity 12/14/2021 07:40:00 279 250-425 (ug/dL) Final Transferrin Sat % 12/14/2021 07:40:00 20 15 -55 (%) Final Performing Location LABORATORY [facility] - [address] [place] [address]
--- OUTSIDE RECORDS SUMMARY | 2023-05-10 19:08 | External Medical Summary | Summary of Care ---
Author Name Unknown Organization [place] [address] Care Team Providers Care Tail Trimmer Name Role Phone Vanita Dunn MD Primary Care Provid er Reason for Visit * Reason Comments eRx-Medication Refill Encounter Details Date Type Department Care Team Description 12/15/2021 Refill Cardiology, [facility] 132 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 120 Vial 11 0 Active nystatin (NYSTOP) 896691 UNIT/GM powder Apply topically to affected area 3 times a day. 60 g 1 0 Active Additional Information Patient not taking. Informant: [...] Informant: Pharmacy, Reported on 02/04/2021 Dexcom G6 Appraiser Real Estate Device Use as directed. To test blood [...] Strip 3 1 Active OneTouch Delica Plus [id number] TESTING once daily 100 Each 3 1 [...] BY MOUTH DAILY 60 Tablet 0 2 Active Spironolactone 25 MG Oral Tablet (Aldactone) Take 2 Tabs by mouth daily. 60 Tab 5 1 12/17/19 22 Discontinued documented as of this encounter (statuses as of 12/16/2021) Active Problems Problem Noted Date Food insecurity [...] as of this encounter (statuses as of 12/16/2021) Resolved Problems Problem Noted Date Resolved Date [...] pain 01/24/2012 01/17/2017 Genetic Sleep Disorder Research Other*[id number] 05/13/2011 04/07/2016 Obstructive sleep apnea 01/18/2011 12/27/19 [...] as of this encounter (statuses as of 12/16/2021) Immunizations Name Administration Dates Next Due COVID-19 [...] Telephone Encounter - Drew Retana MD - 12/16/2021 1:16 PM EDT Signed Prescriptions: Disp Refills Spironolactone 25 MG Oral Tablet (Aldacton*60 Tab*0 Sig: TAKE 2 TABLETS BY MOUTH DAILY Authorizing Provider: DREW RETANA Refused Prescriptions: Disp Refills Potassium Chloride ER 10 MEQ Oral Tablet E*90 Tab*0 Sig: TAKE 1 TABLET BY MOUTH ONCE DAILY WITH FOOD Refused By: SOPHIA [place] Reason for Refus al: Too soon Reason for Refusal Comment: sent 06/11 for a 1 yr supply * Telephone Encounter - Sophia [place] [facility] - 12/16/2021 7:46 AM EDT Pending Prescriptions: Disp Refills Spironolactone 25 MG Oral Tablet (Aldacto*60 Tab*0 Sig: TAKE 2 TABLETS BY MOUTH DAILY Refused Prescriptions: Disp Refills Potassium Chloride ER 10 MEQ Oral Tablet E*90 Tab*0 Sig: TAKE 1 TABLET BY MOUTH ONCE DAILY WITH FOOD Refused By: SOPHIA [place] Reason for Refusal: Too soon Reason for Refusal Comment: sent 06/11 for a 1 yr supply * Telephone Encounter - Sophia [place] [facility] - 12/16/2021 7:44 AM EDT Pending Prescriptions: Disp Refills Spironolactone 25 MG Oral Tablet (Aldacto*60 Tab*0 Sig: TAKE 2 TABLETS BY MOUTH DAILY Refused Prescriptions: Disp Refills Potassium Chloride ER 10 MEQ Oral Tablet E*90 Tab*0 Sig: TAKE 1 TABLET BY MOUTH ONCE DAILY WITH FOOD Refused By: SOPHIA [place] Reason for Refusal: Too soon Reason for Refusal Comment: sent 06/11 for a 1 yr supply Last Visit: 11/04/2021 (in office), Visit date not found (telemedicine) Next Visit: 05/05/2022 If no future appointments scheduled, and last appointment is greater than a year ago, please schedule patient for a follow-up appointment Last date the medication was ordered: 05/26/21 Pharmacy: [id number] Is this request for a controlled substance?No Urine Drug Screen:No results found. However, due to the size of the patient record, not all encounters were searched. Please check Results Review for a complete set of results. Patient Phone Numbers Labs: Lab Results Component Value Date/Time CREAT 0.8 09/23/2021 05:24 PM CREAT 0.80 08/09/2021 12:00 AM CREAT 0.6 09/24/2020 05:16 PM POTASSIUM 3.8 09/23/2021 05:24 PM POTASSIUM 4.0 08/09/2021 12:00 AM POTASSIUM 4.0 09/24/2020 05:16 PM TSH 0.02 (L) 06/10/2021 02:45 PM TSH 0.69 07/14/2020 04:24 PM LDLCALC 46 09/14/2021 03:22 PM LDLCALC 43 04/05/2019 06:40 AM LDLDIRECT 46 02/21/2020 11:43 AM ALT 49 (H) 09/23/2021 05:24 PM ALT 23 08/21/2020 04:35 PM HGBA1C 7.1 (H) 08/19/2021 04:19 PM HGBA1C 9.9 (H) 07/06/2020 05:24 AM documented in this encounter Plan of Treatment Upcoming Encounters Date Type Specialty Care Team Description 12/17/2021 Hem/Onc Treatment Hematology [place]cology [place], Chair 2 Hem Onc Scenery [address] [place], [place] [phone] 12/20/2021 Pre-Admission Testing PreSurgery Glh, Psae [address] [place] [address] 12/22/2021 Office Visit Endocrinology Alberta Duque PA-C [address] [place] [address] 12/23/2021 Office Visit Gastroenterology Lyssa Stout CRNP [address] [place] [address] 12/25/[address] [facility], Pre Surgical Covid Testing [address] [place] [address] 12/27/2021 Laboratory Laboratory Processing [facility], [facility] Mobile Home Draw [address] [place] [address] 12/27/2021 Hospital Encounter Surgery Concetta Khan MD [address] [place], [place] [phone] 12/27/2021 Surgery Surgery Concetta Khan MD [address] [place], [place] [phone] HYSTEROSCOPY WITH BIOPSY AND/OR POLYPECTOMY WITH OR WITHOUT D&C 12/30/2021 [facility] Visit [facility] July Poe RN [address] [place] [address] 01/04/2022 Hem/Onc Treatment Hematology Oncology [place], Chair [address] [address] 01/04/2022 Office Visit Hematology Oncology Tono Sanchez MD [address] [place] [address] 01/10/2022 Laboratory Laboratory Processing [facility], [facility] Mobile Home Draw [address] [place], [place] [id number] 01/11/2022 Office Visit Gynecology Obstetrics Concetta Khan MD [address] [place], [place] [phone] 01/13/2022 Home Visit Family Medicine Kaylee Barakat, [facility] [employer] [facility] [address] [place] [address] 01/24/2022 Laboratory Laboratory Processing [facility], [facility] Mobile Home Draw [address] [place] [address] 01/27/2022 Office Visit [address] [address] 01/28/2022 Hem/Onc Treatment Hematology Oncology [place], Chair 1 Hem Onc Scenery [address] [place] [address] 02/07/2022 Laboratory Laboratory Processing [facility], [facility] Mobile Home Draw [address] [place] [address] 02/18/2022 Hem/Onc Treatment Hematology Oncology [place], Chair 1 Hem Onc Scenery [address] [place] [address] 02/21/2022 Laboratory Laboratory Processing [facility], [facility] Mobile Home Draw [address] [place] [address] 03/07/2022 Laboratory Laboratory Processing [facility], [facility] Mobile Home Draw [address] [place] [address] 03/11/2022 Hem/Onc Treatment Hematology Oncology [place], Chair 1 Hem Onc Scenery [address] [place] [address] 03/24/2022 Office Visit Pulmonary Reynaldo Marquez MD [address] [place] [phone] 04/01/2022 Hem/Onc Treatment Hematology [place]cology [place], Chair 1 Hem Onc Scenery [address] [place] [address] 04/22/2022 Hem/Onc Treatment Hematology [place]cology [place], Chair 1 Hem Onc Scenery 200 [facility] [place] [address] 05/05/2022 Office Visit Cardiology Quyen Canseco CRNP 132 [facility] [place] [address] 06/24/2022 Office Visit Sleep Disorders Love Francisco DO [address] [place] [address] Scheduled Procedures Name Priority Associated Diagnoses Date/Ti [...] of this encounter Implants Implanted Type Area Lap Runner Device Identifier Shelf Expiration Date Model / Serial / Lot Microtech Sure Clip Implanted:Qty: 2 on 06/03/2020 by Janis Hatch DO at OR [facility] Clip N/A: Colon 04/21/2022 [facility]-F-26-2 35-C-R / / [id number] documented as of this encounter Visit Diagnoses Diagnosis Hypokalemia Hypopotassemia PMB (postmenopausal bleeding) Postmenopausal bleeding documented in this encounter Advance Directives Documents on File Type Date Recorded Patient Wire Frame Dipper 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 AND HEALTH CARE POA Power of Ship Scraper 04/29/2021 12:00 AM TOM R OF POLICY VALUE CALCULATOR HEALTH CARE POA Advanced Directive 04/01/2021 1:14 [...] Syed Bustos Spouse Emergency Contact Care Teams Tail Trimmer Relationship Specialty Start Date End Date Vanita Dunn MD [address] [place] [address] PCP - General Family Medicine 03/16/21 documented as of this encounter
--- OUTSIDE RECORDS SUMMARY | 2023-05-10 19:08 | External Medical Summary ---
Author Name Unknown Address Unknown Organization K0G:LABORATORY [facility] 57-10 - [address] [place] [address] Laboratory Report Ordering Provider Test Date Status JACOB CORBETT 12/14/2021 07:40:00 Final Observation Date Value Abnormality Reference (Units ) Status Nucleated erythrocytes/100 leukocytes [Ratio] in Blood by Automated count 12/14/2021 07:40:00 Final Anisocytosis [Presence] in Blood by Light microscopy 12/14/2021 07:40:00 Moderate Abnormal None Seen Final Elliptocytes [Presence] in Blood by Light microscopy 12/14/2021 07:40:00 Few Abnormal None Seen Final Hypochromia [Presence] in Blood by Light microscopy 12/14/2021 07:40:00 Slight Abnormal None Seen Final Schistocytes 12/14/2021 07:40:00 Few Abnormal None Seen Final Dacrocytes [Presence] in Blood by Light microscopy 12/14/2021 07:40:00 Few Abnormal None Seen Final [facility] - [address] [place] [address]
--- OUTSIDE RECORDS SUMMARY | 2023-05-10 19:09 | External Medical Summary | Summary of Care ---
Author Name Unknown Organization [place] [address] Care Team Providers Care Motivational Speaker Name Role Phone Kojo Dunn MD Primary Care Provid er Reason for Visit * Reason Comments eRx-Medication Refill Encounter Details Date Type Department Care Team Description 12/08/2021 Refill Merged With [facility] [address] [place] [address] Alexandra Caceres [address] [place] [address] 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 documented as of this encounter (statuses as of 12/08/2021) Medications Medication Sig Dispensed Refills Start Date End Date Status albuterol sulfate (PROVENTIL) (2.5 MG/3ML) 0.083% nebulizer solutionIndications :Pulmonary vascular congestion Inhale 1 Vial via nebulizer every 6 hours as needed for Wheezing. 120 Vial 11 0 Active nystatin (NYSTOP) 462635 UNIT/GM powder Apply topically to affected area [...] Informant: Pharmacy, Reported on 02/04/2021 Dexcom G6 Contact Lens Technician Device Use as directed. To test [...] Strip 3 1 Active OneTouch Delica Plus [id number] TESTING once daily 100 Each 3 1 [...] once weekly 6 mL 3 1 Active Spironolactone 25 MG Oral Tablet (Aldactone) Take 2 Tabs by mouth daily. 60 Tab 5 1 Active Docusate Sodium 100 MG Oral [...] EXTREMITY SWELLING 90 Tablet 0 2 Active Furosemide 20 MG Oral Tablet (Lasix) Take 1 Tablet by mouth daily as needed (lower extremity swelling). EDEMA 30 Tablet 2 2 12/09/19 22 Discontinued documented as of this encounter (statuses as of 12/08/2021) Active Problems Problem Noted Date Food insecurity 09/20/2021 Overview: Per [email or web address] Protocol Chronic diastolic (congestive) heart [...] as of this encounter (statuses as of 12/08/2021) Resolved Problems Problem Noted Date Resolved Date [...] pain 01/24/2012 01/17/2017 Genetic Sleep Disorder Research Other*[id number] 05/13/2011 04/07/2016 Obstructive sleep apnea 01/18/2011 12/27/19 [...] as of this encounter (statuses as of 12/08/2021) Immunizations Name Administration Dates Next Due COVID-19 [...] Miscellaneous Notes * Telephone Encounter - Danilo Talavera, [facility] - 12/08/2021 3:28 PM EDT Signed Prescriptions: Disp Refills Furosemide 20 MG Oral Tablet (Lasix) 90 Tab*0 Sig: TAKE 1 TABLETBY MOUTH DAILY NEEDED FOR LOWER EXTREMITY SWELLINGAuthorizing Provider: KOJO DUNN User: DANILO TALAVERA documented in this encounter Plan of Treatment Upcoming Encounters Date Type Specialty Care Team Description 12/10/2021 Office Visit Gynecology Obstetrics Concetta Khan MD [address] [facility] [place], [place] [id number] 12/14/2021 Laboratory Laboratory Processing [facility] Mobile Home Draw [address] [place] [address] 12/17/2021 Hem/Onc Treatment Hematology Oncology [place], Chair 2 Hem Onc [facility] [address] [place] [address] 12/22/2021 Office Visit Endocrinology Alberta Duque PA-C [address] [place] [address] 12/23/2021 Office Visit Gastroenterology Lyssa Stout CRNP [address] [place] [address] 12/27/2021 Laboratory Laboratory Processing [facility] Mobile Home Draw [address] [place] [address] 12/30/2021 Home Visit [facility] July Poe RN [address] [place] [address] 01/04/2022 Hem/Onc Treatment Hematology Oncology [place], Chair 6 Hem Onc [address] [place] [address] 01/04/2022 Office Visit Hematology Oncology Tono Sanchez MD [address] [place] [address] 01/10/2022 Laboratory Laboratory Processing [facility] Mobile Home Draw [address] [place] [address] 01/13/2022 Home Visit Family Medicine Kaylee Barakat, [facility] Insole Department Worker [address] [place] [address] 01/24/2022 Laboratory Laboratory Processing [facility] Mobile Home Draw [address] [place] [address] 01/27/2022 Office Visit Pharmacy [address] [address] 01/28/2022 Hem/Onc Treatment Hematology Oncology [employer], Chair 1 Hem Onc [address] [place] [address] 02/07/2022 Laboratory Laboratory Processing [facility] Mobile Home Draw [address] [place] [address] 02/18/2022 Hem/Onc Treatment Hematology Oncology [employer], Chair 1 Hem Onc [address] [place], [place] [address] 02/21/2022 Laboratory Laboratory Processing [facility] Mobile Home Draw [address] [place] [address] 03/07/2022 Laboratory Laboratory Processing [facility] Mobile Home Draw [address] [place] [address] 03/11/2022 Hem/Onc Treatment Hematology Oncology [employer], Chair 1 Hem Onc [address] [place], [place] [address] 03/24/2022 Office Visit Pulmonary Reynaldo Marquez MD [address] [place] [address] 04/01/2022 Hem/Onc Treatment Hematology Oncology [employer], Chair 1 Hem Onc [address] [place] [address] 04/22/2022 Hem/Onc Treatment Hematology Oncology [employer], Chair 1 Hem Onc [address] [place] [address] 05/05/2022 Office Visit Cardiology Quyen Canseco CRNP [address] [facility] [place] [address] 06/24/2022 Office Visit Sleep Disorders Love Francisco DO [address] [facility] [place] [address] Scheduled Procedures Name Priority Associated Diagnoses Date/Ti [...] of this encounter Implants Implanted Type Area Predatory Hunter Device Identifier Shelf Expiration Date Model / Serial / Lot Microtech Sure Clip Implanted:Qty: 2 on 06/03/2020 by Janis Hatch DO at OR [facility] Clip N/A: Colon 04/21/2022 [facility]-F-[id number] 35-C-R / / [id number] documented as of this encounter Advance Directives Documents on File Type Date Recorded Patient Dip Filler 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 Directive Advanced Directive Advanced Directive Advanced Directive Advance Directives and Living Will 04/29/2021 12:00 AM ADVANCE DIRECTIVE / LIVING WILL LIVING WILL AND HEALTH CARE POA Power of Insurance Executive 04/29/2021 12:00 AM TOM R OF TELETYPE OR VARITYPE KEYBOARD OPERATOR HEALTH CARE POA Advanced Directive 04/01/2021 [...] Syed Bustos Spouse Emergency Contact Care Teams Motivational Speaker Relationship Specialty Start Date End Date oKjo Dunn MD [address] [place] [address] PCP - General Family Medicine 03/16/21 documented as of this encounter
--- OUTSIDE RECORDS SUMMARY | 2023-05-10 19:09 | External Medical Summary | Summary of Care ---
Author Name Unknown Organization [facility] [place] [address] Care Team Providers Care Commissioner Of Officials Name Role Phone Vanita Dunn MD Primary Care Provid er Reason for Visit * Reason Comments Dosage Adjustment In Person (Anticoag Cl inic) Diabetes Follow-Up Encounter Details Date Type Department Care Team Description 12/03/2021 Office Visit Pharmacy, [place] [address] [place] [address] [facility] [address] [place] [address] Type 2 diabetes mellitus with hemoglobin A1c goal of less than 7.0% ([facility])* 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 documented as of this encounter (statuses as of 12/03/2021) Medications Medication Sig Dispensed Refills Start Date End Date Status albuterol sulfate (PROVENTIL) (2.5 MG/3ML) 0.083% nebulizer solutionIndications: Pulmonary vascular congestion Inhale 1 Vial via nebulizer every 6 hours as needed for Wheezing. 120 Vial 11 10/02/2019 Active nystatin (NYSTOP) 436900 UNIT/GM powder Apply topically to affected area [...] Informant: Pharmacy, Reported on 02/04/2021 Dexcom G6 High Risk Ob Device Use as directed. To test blood [...] Strip 3 10/29/2020 Active OneTouch Delica Plus [id number] TESTING once daily 100 Each 3 10/29/2020 [...] once weekly 6 mL 3 04/23/2021 Active Spironolactone 25 MG Oral Tablet (Aldactone) Take 2 Tabs by mouth daily. 60 Tab 5 05/26/2021 Active Docusate Sodium 100 MG Oral Capsule [...] movements daily 240 mL 3 09/16/2021 Active Furosemide 20 MG Oral Tablet (Lasix) Take 1 Tablet by mouth daily as needed (lower extremity swelling). EDEMA 30 Tablet 2 09/16/2021 Active Benzonatate 100 MG Oral Capsule [...] twice daily 22 g 0 11/08/2021 Active documented as of this encounter (statuses as of 12/03/2021) Active Problems Problem Noted Date Food insecurity [...] as of this encounter (statuses as of 12/03/2021) Resolved Problems Problem Noted Date Resolved Date [...] Cerebral palsy 04/23/2015 03/28/2017 [place] vulvovaginitis 02/12/2015 09/27/20 16 THAD (obstructive sleep apnea) 02/09/2015 Leg [...] pain 01/24/2012 01/17/2017 Genetic Sleep Disorder Research Other*[id number] 05/13/2011 04/07/2016 Obstructive sleep apnea 01/18/2011 12/27/19 [...] as of this encounter (statuses as of 12/03/2021) Immunizations Name Administration Dates Next Due COVID-19 [...] as of this encounter Progress Notes * Indira Hudson, [facility] - 12/03/2021 2:15 PM EDT Images from the original note [...] 500mg daily Trulicity 4.5mg SQ weekly GFR 86 as of 09/14/21 Lifestyle: Diet: unchanged Glucose Review/SMBG: Readings obtained from patient device Dexcom Hypoglycemia: Does your blood sugar go below 70 mg/dL? No Hyperglycemia symptoms present: none Recent Labs Units 08/19/21 1619 06/10/21 1445 03/08/21 0340 HEMOGLOBIN A1C - [facility] % 7.1* 7.4* 8.5* Recent Labs Units 09/23/21 1724 09/14/21 1522 08/09/21 0000 ESTIMATED GLOMERULAR FILTRATION RATE - [facility] mL/min 84 86 -- EGFR-OUTSIDE LAB ML/MIN -- -- 76.8 CREATININE - [facility] mg/dL 0.8 0.7 -- CREATININE-OUTSIDE LAB MG/DL -- -- 0.80 HYPERTENSION: Patient on ACEi/ARB: no, BP at goal BP Readings from Last 3 Encounters: 11/30/21 118/78 11/26/21 124/90 11/25/21 102/58 HYPERLIPIDEMIA: Patient is taking moderate or high intensity statin: yes HEALTH MAINTENANCE REVIEW: Health Maintenance Due Topic Date Due DIABETES-EYE EXAM 06/12/2019 DIABETES-URINE ALBUMIN/CREATININE EVERY 12 MONTHS 01/12/2020 Dexa Scan Never done Pneumococcal Vaccine: 65+ Years (2 of 2 - PPSV23) 2020 Zoster Vaccines (3 of 3) 06/23/2020 Depression Screening, Annual for Pts 12 and Over 07/27/2021 ASSESSMENT & PLAN: ICD-10-CM 1. Type 2 diabetes mellitus with hemoglobin A1c goal of less than 7.0% (HCC) E11.9 Complicating Factors: cirrhosis; poor historian; identifies the insulin via color (Novolog- orange;Lantus- juarez) Presents with . BG Readings Reviewed Dexcom download. BG not at goal. Last A1C was 7.1% but Hgb has been low (but improving- she is being followed by providers/pharmacy team for this) and could be falsely lowering A1C. Medications Reviewed current regimen. Reports forgets to take insulin, especially mealtime insulin. She will work on this. Tolerating medications. Patient wants to work on being adherent vs making changes to regimen. In agreement since unable to appropriately assess. No change at this time. Patient to contact clinic with any issues. Patient is testing BG continuously with Dexcom for diabetes and requires frequent dose adjustment. Patient is agreeable to SMBG with Dexcom Patient aware to contact clinic if any hypoglycemia before next visit. MEDICATION CHANGES: no change Diabetic Medications: Novolog, Inject 32 units before breakfast, 36 units before lunch, and 36 units before supper Lantus pen, 32 units daily Metformin ER 500mg daily Trulicity 4.5mg SQ weekly GFR 84 as of 09/23/21 HEALTH MAINTENANCE INTERVENTIONS: Labs: Up to Date Immunizations: deferred due to time constraints Foot Exam: Up to Date Eye Exam: patient reports she had it- she will check with her eye doctor FOLLOW UP: Return to clinic in 8 weeks 01/27/2022 Indira Hudson [facility] Clinical Pharmacist - [facility] 12/03/2021, 2:15 PM documented in this encounter Plan of Treatment Upcoming Encounters Date Type Specialty Care Team Description 12/10/2021 Office Visit Gynecology Obstetrics Concetta Khan MD [address] [facility] [place], [place] [id number] 12/13/2021 Laboratory Laboratory Processing [facility] Mobile Home Draw [address] [place], [place] [id number] 12/17/2021 Hem/Onc Treatment Hematology Oncology [place], Chair 2 Hem Onc Sc[address] [facility] [place] [address] 12/22/2021 Office Visit Endocrinology Alberta Duque PA-C [address] [place] [address] 12/23/2021 Office Visit Gastroenterology Lyssa Stout CRNP [address] [facility] [place] [address] 12/27/2021 Laboratory Laboratory Processing [facility] Mobile Home Draw [address] [place] [address] 12/30/2021 Home Visit [facility] July Poe RN [address] [place] [address] 01/04/2022 Hem/Onc Treatment Hematology Oncology [place], Chair 6 Hem Onc [address] [place], [place] [address] 01/04/2022 Office Visit Hematology Oncology Tono Sanchez MD [address] [facility] [place] [address] 01/10/2022 Laboratory Laboratory Processing [facility] Mobile Home Draw [address] [place] [address] 01/13/2022 Home Visit Family Medicine Kaylee Barakat, Community [facility] Microscopist [address] [place] [address] 01/24/2022 Laboratory Laboratory Processing [facility] Mobile Home Draw [address] [place] [address] 01/27/2022 Office Visit [address] [address] 01/28/2022 Hem/Onc Treatment Hematology Oncology [place], Chair 1 Hem Onc [address] [place] [address] 02/07/2022 Laboratory Laboratory Processing [facility] Mobile Home Draw [address] [place] [address] 02/18/2022 Hem/Onc Treatment Hematology Oncology [place], Chair 1 Hem Onc [address] [place], [place] [address] 02/21/2022 Laboratory Laboratory Processing [facility] Mobile Home Draw [address] [place] [address] 03/07/2022 Laboratory Laboratory Processing [facility] Mobile Home Draw [address] [place] [address] 03/11/2022 Hem/Onc Treatment Hematology Oncology [place], Chair 1 Hem Onc [address] [place] [address] 03/24/2022 Office Visit Pulmonary Reynaldo Marquez MD [address] [place] [address] 04/01/2022 Hem/Onc Treatment Hematology Oncology [place], Chair 1 Hem Onc [address] [place] [address] 04/22/2022 Hem/Onc Treatment Hematology Oncology [place], Chair 1 Hem Onc [address] [place] [address] 05/05/2022 Office Visit Cardiology Quyen Canseco CRNP [address] [place] [address] 06/24/2022 Office Visit [facility] Disorders Love [facility] [address] [facility] [address] Scheduled Procedures Name Priority Associated Diagnoses Date/Ti [...] of this encounter Implants Implanted Type Area Ladle Pourer Device Identifier Shelf Expiration Date Model / Serial / Lot Microtech Sure Clip Implanted:Qty: 2 on 06/03/2020 by Janis Hatch DO at OR [facility] Clip N/A: Colon 04/21/2022 [facility]-F-26-2 35-C-R / / [id number] documented as of this encounter Visit Diagnoses Diagnosis Type 2 diabetes mellitus with hemoglobin A1c goal of less than 7.0% (HCC)- Primary documented in this encounter Advance Directives Documents on File Type Date Recorded 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
--- OUTSIDE RECORDS SUMMARY | 2023-05-10 19:09 | External Medical Summary | Summary of Care ---
Author Name Unknown Organization [facility] [place] [address] Care Team Providers Care Police Manager Name Role Phone Vanita Dunn MD Primary Care Provid er Reason for Visit * Reason Comments Family Sociologist Return * Evaluate & Treat - Unlimited Visits (Within 10 days (routine)) - Closed Specialty Diagnoses / Procedures Referred By Contac t Referred To Contact Obstetrics/Gynecology / Gynecology Obstetrics Diagnoses Postmenopausal bleeding Abnormal pelvic ultrasound Joselin Dawson, [address] [place] [address] Referral ID Status Reason Start Date Expiration Date V isits Requested Visits Authorized [id number] Closed Specialty Services Required 10/21/2021 1 1 Encounter Details Date Type Department Care Team Description 12/10/2021 Office Visit Gynecology/Obstetrics [address] [address] Concetta Khan MD [address] [place] [address] PMB (postmenopausal bleeding)*; Cervical os stenosis; Iron deficiency anemia due to chronic blood loss 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 documented as of this encounter (statuses as of 12/11/2021) Medications Medication Sig Dispensed Refills Start Date End Date Status albuterol sulfate (PROVENTIL) (2.5 MG/3ML) 0.083% nebulizer solutionIndications: Pulmonary vascular congestion Inhale 1 Vial via nebulizer every 6 hours as needed for Wheezing. 120 Vial 11 10/02/2019 Active nystatin (NYSTOP) 247401 UNIT/GM powder Apply topically to affected area [...] Informant: Pharmacy, Reported on 02/04/2021 Dexcom G6 Secretary Of [employer] Device Use as directed. To test [...] Strip 3 10/29/2020 Active OneTouch Delica Plus [id number] TESTING once daily 100 Each 3 10/29/2020 [...] EXTREMITY SWELLING 90 Tablet 0 12/08/2021 Active documented as of this encounter (statuses as of 12/11/2021) Active Problems Problem Noted Date Food insecurity [...] as of this encounter (statuses as of 12/11/2021) Resolved Problems Problem Noted Date Resolved Date [...] pain 01/24/2012 01/17/2017 Genetic Sleep Disorder Research Other*[id number] 05/13/2011 04/07/2016 Obstructive sleep apnea 01/18/2011 12/27/19 [...] as of this encounter (statuses as of 12/11/2021) Immunizations Name Administration Dates Next Due COVID-19 [...] Sign Reading Time Taken Comments Blood Pressure 130/80 12/10/2021 3:50 PM EDT Pulse - - Temperature - [...] Progress Notes * Concetta Khan MD - 12/10/2021 11:29 PM EDT Patient Name: Shaina Bustos New Patient referred by self Reason for Visit : Postmenopausal bleeding (HPI): Patient is a 6-year-old 001 postmenopausal female who presents for evaluation of postmenopausal bleeding that has been ongoing for about 5-6 months. Patient accompanied by her caregiver who provided some of the history. Patient's caregiver refers that she has had bright red bleeding intermittently for the past 5-6 months. Patient has been postmenopausal for many years she is unable tospecify an exact age. Patient is not hormone placement therapy. Patient is not on anticoagulation. Pelvic ultrasound showed normal sized uterus with endometrial stripe measuring 4 mm. Endometrial stripe is heterogeneous. Review of the patient's chart shows that her hemoglobin was 8.7g/dl on 11/29/2021. Past medical history: Past Medical History: Diagnosis Date Cerebral palsy [...] less than 8.0% ([facility]) 09/26/2013 ICD-10 update of inactive term Past surgical history: Past Surgical History: Procedure Laterality Date BONE DEBRIDEMENT, FIRST 20 CM2 Right 04/16/2020 DEBRIDEMENT SKIN SUBCUTANEOUS TISSUE MUSCLE AND BONE performed by Josh Vazquez MD at [facility] DELIVERY 04/20/1982 COLONOSCOPY 04/21/2009 repeat in 10 years COLONOSCOPY, DIAGNOSTIC (RECTUM) 10/04/2016 normal bx, repeat 10 yrs/[facility] COLONOSCOPY, DIAGNOSTIC (RECTUM) N/A 06/03/2020 internal hemorrhoids/biopsies show adenomatous polyps/recall 5 years/COLONOSCOPY FLEXIBLE PROXIMAL DIAGNOSTIC performed by Janis Hatch DO at OR [facility] COLONOSCOPY, DIAGNOSTIC (RECTUM) 03/17/2020 poor prep / [facility] DENTAL SURGERY PROCEDURE NEC wisdom teeth x 4 DILATION AND CURETTAGE (D&C) EGD, FLEXIBLE, DIAGNOSTIC 10/04/2016 gastritis/[facility] EGD, FLEXIBLE, DIAGNOSTIC 01/11/2018 eso varices, retained food, repeat 1 yr/[facility] EGD, FLEXIBLE, DIAGNOSTIC N/A 06/03/2020 severe erosive esophagitis/non-bleeding grade II esophageal varices/gastritis/biopsies show inflammatory changes/repeat 3-4 months/ESOPHAGOGASTRODUODENOSCOPY (EGD), FLEXIBLE, TRANSORAL, DIAGNOSTIC per formed by Janis Hatch DO at [facility] EGD, FLEXIBLE, DIAGNOSTIC 11/27/2019 eso varices, portal hypertensive gastropathy, gastritis / [facility] EGD, FLEXIBLE, DIAGNOSTIC N/A 08/05/2020 large amount of food in stomach/repeat 1.5 years/ESOPHAGOGASTRODUODENOSCOPY (EGD), FLEXIBLE, TRANSORAL, DIAGNOSTIC performed by Janis Hatch DO at [facility] EGD, FLEXIBLE, DIAGNOSTIC N/A 03/10/2021 ESOPHAGOGASTRODUODENOSCOPY (EGD), FLEXIBLE, TRANSORAL, DIAGNOSTIC performed by Kris Blankenship MD at ENDOSCOPY [facility] VENOUS ACCESS MEDIPORT 10/05/2020 PELVIS/HIP JOINT [...] Age of Onset Heart Disorder Father of [place] at age 61 Diabetes Father Heart Disorder Mother of [place] age 72 Heart Disorder Sister Mi at age 46 Hypertension Sister Cancer No significant family history Arthritis No significant family history Mental Disorder No significant family history Stroke No significant family history Social history: Social History Tobacco Use Smoking status: Never Smoker Smokeless tobacco: Never Used Substance Use Topics Alcohol use: No Comment: rare Vaping/E-Cigarette Use Vaping/E-Cigarette Use Never [...] orders placed or performed in visit on 11/29/21 FERRITIN Result Value Ref Range Ferritin 248 (H) 13 - 150 ng/mL IRON SCREEN, INCLUDING TIBC Result Value Ref Range Iron 80 33 - 151 ug/dL Iron Binding Capacity 273 250 - 425 ug/dL Transferrin Saturation Percent 29 15 - 55 % CBC Result Value Ref Range WBC 3.00 (L) 4.00 - 10.80 K/uL RBC 2.90 (L) 3.85 - 5.15 M/uL HGB 8.7 (L) 12.0 - 15.3 g/dL HCT 28.5 (L) 36.0 - 45.2 % MCV 98.3 (H) 81.5 - 97.5 fL MCH 30.0 27.0 - 34.0 pg MCHC 30.5 (L) 32.0 - 36.0 g/dL RDW 24.3 (H) 11.5 - 15.5 % PLT 65 (L) 140 - 400 K/uL MPV DIFFERENTIAL, AUTOMATED Result Value Ref Range WBC 3.00 (L) 4.00 - 10.80 K/uL Neutrophils % 46.9 40.0 - 75.0 % Lymphocytes % 25.7 18.0 - 42.0 % Monocytes % 10.7 1.0 - 11.0 % Eosinophils % 16.0 (H) 0.0 - 6.0 % Basophils % 0.7 0.0 - 2.0 % Absolute Neutrophils 1.41 (L) 1.80 - 7.70 K/uL Absolute Lymphocytes 0.77 (L) 1.00 - 4.80 K/ul Absolute Monocytes 0.32 0.00 - 1.10 K/uL Absolute Eosinophils 0.48 0.00 - 0.70 K/uL Absolute Basophils 0.02 0.00 - 0.20 K/uL DIFFERENTIAL, TECHNOLOGIST REVIEW Result Value Ref Range nRBCs Anisocytosis Moderate (A) None Seen Elliptocytes Few (A) None Seen Hypochromia Slight (A) None Seen Schistocytes Few (A) None Seen Tear Drop Cells Few (A) None Seen *Note: Due to a large number of results and/or encounters for the requested time period, some results have not been displayed. A complete set of results can be found in Results Review. Comment: EXAM ULTRASOUND PELVIS, TRANSABDOMINAL AND ENDOVAGINAL - [...] cysts. There is no significant free fluid. IMPRESSION IMPRESSION Stripe appears heterogenous. Biopsy is recommended. 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 Name of stonework supervisor: Gildardo Mason RN Well developed. Well nourished white female in no acute distress HEENT : WNL LUNG: CTA bilat HEART; S-1, S-2; Regular ,rythm and rate . No murmurs GI: Soft. Non-tender. Non-distended.No guarding,no rebound tenderness. No Hernias PELVIC: External genitalia and vagina anatomy within normal limits, No significant vulvar lesions, No significant vaginal discharge, Cervix os is atrophic and stenosis without lesions or purulent discharge, Uterus and adnexa are difficult to assess due to body habitus Neurologic: grossly intact Extremity: bilateral lymphedema Psych: Alert, awake and oriented X 3. Normal gait A/P (N95.0) PMB (postmenopausal bleeding) (primary encounter diagnosis) Plan: Given the patient's BMI, patient will benefit for endometrial sampling. An attempt was made at in office endometrial biopsy. Procedure was aborted because her cervical os was severely stenotic and the patient was uncomfortable. Given multiple comorbidities. Patient will require clearance from her PCP and the anesthesiologist prior to the procedure. (N88.2) Cervical os stenosis Plan: Will attempt dilating her cervical os under anesthesia. Patient may require lip of the cervix to open up her cervical can a (D50.0) Iron deficiency anemia due to chronic blood loss Plan: Patient may benefit from Mirena IUD for management of her postmenopausal bleeding. I would avoid oral estrogen and progesterone due to history of liver cirrhosis. Our also avoid tranexamic acid because the patient is not mobile which puts her at risk for deep venous thrombosis and pulmonary embolism. Patient will benefit from iron supplementation Concetta Khan MD documented in this encounter H&P Notes * Concetta Khan MD - 12/10/2021 11:28 PM EDT Shaina Bsutos is a 66 year old, , Pre-menopausal female who presents for preoperative visit for a diagnostic hysteroscopy, dilation and curettage, Possible loop electrosurgical excision procedure of the cervix for postmenopausal bleeding and cervical stenosis. Patient has had intermittent vagi nal bleeding for the past 5-6 months. Pelvic ultrasound showed endometrial thickness of 4 meet the with heterogenicity. An attempt was made to do an in office endometrial biopsy proved abortive because of her severe cervical stenosis. Given her BMI of 50 it is prudent to simple her endometrium to rule out malignancy. PAST MEDICAL HISTORY: Past Medical History: Diagnosis Date Cerebral palsy [...] less than 8.0% ([facility]) 09/26/2013 ICD-10 update of inactive term PAST SURGICAL HISTORY: Past Surgical History: Procedure Laterality Date BONE DEBRIDEMENT, FIRST 20 CM2 Right 04/16/2020 DEBRIDEMENT SKIN SUBCUTANEOUS TISSUE MUSCLE AND BONE performed by Josh Vazquez MD at [facility] DELIVERY 04/20/1982 COLONOSCOPY 04/21/2009 repeat in 10 years COLONOSCOPY, DIAGNOSTIC (RECTUM) 10/04/2016 normal bx, repeat 10 yrs/[facility] COLONOSCOPY, DIAGNOSTIC (RECTUM) N/A 06/03/2020 internal hemorrhoids/biopsies show adenomatous polyps/recall 5 years/COLONOSCOPY FLEXIBLE PROXIMAL DIAGNOSTIC performed by Janis Hatch DO at OR [facility] COLONOSCOPY, DIAGNOSTIC (RECTUM) 03/17/2020 poor prep / [facility] DENTAL SURGERY PROCEDURE NEC wisdom teeth x 4 DILATION AND CURETTAGE (D&C) EGD, FLEXIBLE, DIAGNOSTIC 10/04/2016 gastritis/[facility] EGD, FLEXIBLE, DIAGNOSTIC 01/11/2018 eso varices, retained food, repeat 1 yr/[facility] EGD, FLEXIBLE, DIAGNOSTIC N/A 06/03/2020 severe erosive esophagitis/non-bleeding grade II esophageal varices/gastritis/biopsies show inflammatory changes/repeat 3-4 months/ESOPHAGOGASTRODUODENOSCOPY (EGD), FLEXIBLE, TRANSORAL, DIAGNOSTIC per formed by Janis Hatch DO at [facility] EGD, FLEXIBLE, DIAGNOSTIC 11/27/2019 eso varices, portal hypertensive gastropathy, gastritis / [facility] EGD, FLEXIBLE, DIAGNOSTIC N/A 08/05/2020 large amount of food in stomach/repeat 1.5 years/ESOPHAGOGASTRODUODENOSCOPY (EGD), FLEXIBLE, TRANSORAL, DIAGNOSTIC performed by Janis Hatch DO at OR [facility] EGD, FLEXIBLE, DIAGNOSTIC N/A 03/10/2021 ESOPHAGOGASTRODUODENOSCOPY (EGD), FLEXIBLE, TRANSORAL, DIAGNOSTIC performed by Kris Blankenship MD at ENDOSCOPY [facility] VENOUS ACCESS MEDIPORT 10/05/2020 PELVIS/HIP JOINT SURGERY NEC teenager aid in walking REPAIR/GRAFT ACHILLES TENDON age 40 aid in walking FAMILY HISTORY: Family History Problem Relation Age of Onset Heart Disorder Father of [place] at age 61 Diabetes Father Heart Disorder Mother of [place] age 72 Heart Disorder Sister Mi at age 46 Hypertension Sister Cancer No significant family history Arthritis No significant family history Mental Disorder No significant family history Stroke No significant family history SOCIAL HISTORY: Social History Tobacco Use Smoking status: Never Smoker Smokeless tobacco: Never Used Vaping Use Vaping Use: Never used Substance Use Topics Alcohol use: No Comment: rare Drug use: No Comment: too much soda ALLERGIES: Adhesive tape, Pcn [penicillins], and Perflutren protein a microsph ROS: Constitutional: (-) fever chills sweats or weight loss Cardiovascular: (+) dizziness Pulmonary : (-) negative: no cough, wheezing, or shortness of breath Abdominal/GI: (-) negative: no pain, heartburn, dysphagia, bleeding, change in bowel habits, nauseaor vomiting Genitourinary: (+) vaginal bleeding Neurology: (-) negative: no focal neurologic defect Psychiatry: (-) negative: no depression or anxiety PHYSICAL EXAMINATION: Most Recent Vital Signs: BP 130/80 HEENT : WNL LUNG: CTA bilaterally HEART; S-1, S-2; Regular, rythm and rate . No murmurs GI: Soft. Non-tender. Non-distended.No guarding,no rebound tenderness. No Hernias PELVIC: External genitalia and vagina anatomy within normal limits, No significant vulvar lesions, No significant vaginal discharge, Cervix os is atrophic and stenosis without lesions or purulent discharge, Uterus and adnexa are difficult to assess due to body habitus Neurologic: grossly intact Psych: Alert, awake and oriented X 3. Normal gait LABS: Results for orders placed or performed in visit on 11/29/21 CBC Result Value Ref Range WBC 3.00 (L) 4.00 - 10.80 K/uL RBC 2.90 (L) 3.85 - 5.15 M/uL HGB 8.7 (L) 12.0 - 15.3 g/dL HCT 28.5 (L) 36.0 - 45.2 % MCV 98.3 (H) 81.5 - 97.5 fL MCH 30.0 27.0 - 34.0 pg MCHC 30.5 (L) 32.0 - 36.0 g/dL RDW 24.3 (H) 11.5 - 15.5 % PLT 65 (L) 140 - 400 K/uL MPV IMAGING: EXAM ULTRASOUND PELVIS, TRANSABDOMINAL AND ENDOVAGINAL - [...] cysts. There is no significant free fluid. IMPRESSION IMPRESSION Stripe appears heterogenous. Biopsy is recommended. IMPRESSION: Shaina Bustos is a 66 year old postmenopausal female with postmenopausal bleeding, cervical os stenosis PLAN: We discussed the risks, benefits and alternatives of a diagnostic hysteroscopy, dilation and curettage, possible loop electrosurgical excision of the cervix. The patient was informed of risks including but not limited to bleeding, infection, injury to vagina, cervix, uterus, any of the internal organs, fluid overload as well as risks of anesthesia. The patient verbalized understanding and agreed with the plan. documented in this encounter Nursing Notes * Pham Chavez LPN - 12/10/2021 3:51 PM EDT Pt presents for EMB regarding PMB. Pt states postmenopausal bleeding has been going on since 2020. pts caregiver states the bleeding is bright red like a period. Pham Chavez LPN documented in this encounter Plan of Treatment Upcoming Encounters Date Type Specialty Care Team Description 12/14/2021 Laboratory Laboratory Processing [facility] Mobile Home Draw [address] [place] [address] 12/17/2021 Hem/Onc Treatment Hematology Oncology Maryellen, Chair 2 Hem Onc Scene [address] [place] [address] 12/22/2021 Office Visit Endocrinology Alberta Duque PA-C [address] [place] [address] 12/23/2021 Office Visit Gastroenterology Lyssa Stout CRNP [address] [place] [address] 12/27/2021 Laboratory Laboratory Processing [facility] Mobile Home Draw [address] [place] [address] 12/30/2021 Home Visit [facility] July Poe RN [address] [place] [address] 01/04/2022 Hem/Onc Treatment Hematology Oncology Maryellen, Chair 6 Hem On[facility] Sc[facility] [address] [facility] [address] 01/04/2022 Office Visit Hematology Oncology Tono Sanchez MD [address] [place] [address] 01/10/2022 Laboratory Laboratory Processing [facility] Mobile Home Draw [address] [place] [address] 01/13/2022 Home Visit Family Medicine Kaylee Barakat, Community Health Prepress Supervisor [address] [place] [address] 01/24/2022 Laboratory Laboratory Processing [facility] Mobile Home Draw [address] [place] [address] 01/27/2022 Office Visit [address] [address] 01/28/2022 Hem/Onc Treatment Hematology Oncology [place], Chair 1 Hem Onc Scenery [address] [place] [address] 02/07/2022 Laboratory Laboratory Processing [facility] Draw [address] [place] [address] 02/18/2022 Hem/Onc Treatment Hematology Oncology [place], Chair 1 Hem Onc Scenery [address] [place] [address] 02/21/2022 Laboratory Laboratory Processing [facility] Draw [address] [place] [address] 03/07/2022 Laboratory Laboratory Processing [facility] Draw [address] [place] [address] 03/11/2022 Hem/Onc Treatment Hematology Oncology [place], Chair 1 Hem Onc Scenery [address] [place] [address] 03/24/2022 Office Visit Reynaldo Marks MD [address] [place] [address] 04/01/2022 Hem/Onc Treatment Hematology Oncology [place], Chair 1 Hem Onc Scenery [address] [place] [address] 04/22/2022 Hem/Onc Treatment Hematology Oncology [place], Chair 1 Hem Onc Scenery [address] [place] [address] 05/05/2022 Office Visit Cardiology Quyen Canseco CRNP [address] [facility] [place] [address] 06/24/2022 Office Visit Sleep Disorders Love Francisco DO [address] [facility] [place] [address] Scheduled Procedures Name Priority Associated Diagnoses Date/Ti me ESOPHAGOGASTRODUODENOSCOPY ( EGD), FLEXIBLE, TRANSORAL, DIAGNOSTIC Recall Esophagitis COLONOSCOPY FLEXIBLE PROXIMAL DIAGNOSTIC Recall History of colonic polyps Scheduled Referrals Name Type Priority Associated Diagnoses Orde r Schedule SADDLE [employer]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 REFERRAL OP Referral Within 10 days (routine) Postmenopausal bleeding Abnormal pelvic ultrasound Ordered: 10/21/2021 Health Maintenance Due Date Last Done Comments [...] of this encounter Implants Implanted Type Area Bindery Leadperson Device Identifier Shelf Expiration Date Model / Serial / Lot [employer] Sure Clip Implanted:Qty: 2 on 06/03/2020 by Janis Hatch DO at OR [facility] Clip N/A: Colon 04/21/2022 [facility]-F-26-2 35-C-R / / [id number] documented as of this encounter Visit Diagnoses Diagnosis PMB (postmenopausal bleeding)- Primary Postmenopausal bleeding Cervical os stenosis Stricture and stenosis of cervix 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 (chronic) documented in this encounter Advance Directives Documents on File Type Date Recorded Patient Video Editor 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 WILL AND HEALTH CARE POA Power of Gi Physician 04/29/2021 12:00 AM [facility] R OF CARE GIVERFORMERLY [facility] POA Advanced Directive 04/01/2021 1:14 PM [...] Syed Bustos Spouse Emergency Contact Care Teams Police Manager Relationship Specialty Start Date End Date Vanita Dunn MD [address] [place] [address] PCP - General Family Medicine 03/16/21 documented as of this encounter
--- OUTSIDE RECORDS SUMMARY | 2023-05-10 19:10 | External Medical Summary | Summary of Care ---
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 120 Vial 11 10/02/2019 Active nystatin (NYSTOP) 420911 UNIT/GM powder Apply topically to affected area [...] of Breath, Informant: Pharmacy, Reported on 02/04/2021 DexBuddy Drinks G6 Aircraft Manager Device Use as directed. 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 05/13/2011 04/07/2016 Obstructive sleep apnea 01/18/2011 12/27/19 [...] as of this encounter (statuses as of 11/30/2021) Immunizations Name Administration Dates Next Due COVID-19 [...] Reading Time Taken Comments Blood Pressure 118/78 11/30/2021 1:09 PM EDT Pulse 60 11/30/2021 1:09 PM EDT Temperature 37.1 C (98.8 F) 11/30/2021 1:09 PM ED T Respiratory Rate - - Oxygen Saturation 94% 11/30/2021 1:09 PM EDT Inhaled Oxygen Concentration - [...] Progress Notes * Kaylee Barakat, Community Health Machine Programmer - 11/30/2021 1:11 PM EDT Community Health Machine Programmer Visit Date: 11/30/2021 Time: 1:11 PM Name: Shaina Bustos : 1955 Referral Source: manager audit Source of Information: Patient Spoken language: Turkmen Patient can read in Turkmen: Yes. Paid Search Manager needed: No. COVID-19 screening completed: Yes Vitals: Vital signs completed: Yes, vital signs within normal range. BP 118/78 (BP Site: Right Arm, BP Position: Supine) | Pulse 60 | Temp 37.1 C (98.8 F) | SpO2 94% Condition Changes: Changes in health or social status since last visit: Patient reporting she is feeling OK Nothing new she stated Denied any falls ,SOB BL Feet ankle and leg Swelling trace not pitting Has not received the [employer] urin collection Reported BSG are between 100-200 once there was a 90 in the past week The patient has new concerns since last visit: No Medications: Medication review completed? No, Taking as orderd Does the patient have barriers to medication adherence? Yes. Remembering to take medications: good on days CG is with her. can forget to give am on time Patient reports difficulty paying for medications or might in the future: No. Telehealth: This is a telehealth visit: No. Symptoms Surveys and Evaluations: MAHC10 completed this visit: Yes. Score is 4 or more? Yes, notified Provider/Senior Underwriter Last flowsheet values for MAHC10: Age 65+: 1 (10/14/2021 2:00 PM) Diagnosis (3 or more co-existing): 1 (10/14/2021 2:00 PM) Prior history of falls within 3 months: 0 (10/14/2021 2:00 PM) Incontinence: 1 (10/14/2021 2:00 PM) Visual impairment: 1 (10/14/2021 2:00 PM) Impaired functional mobility: 1 (10/14/2021 2:00 PM) Environmental hazards: 1 (10/14/2021 2:00 PM) Poly Pharmacy (4 or more prescriptions - any type): 1 (10/14/2021 2:00 PM) Pain affecting level of function: 1 (10/14/2021 2:00 PM) Cognitive impairment: 0 (10/14/2021 2:00 PM) Score - a score of 4 or more is considered at risk for fallin (10/14/2021 2:00 PM) Plan: Reinforced care plan established by care team . Follow Up: Patient encouraged to call the intake phone number for all urgent but not emergent issues. Scheduled to follow up with patient in 6 weeks . Cy Sainz Health Machine Programmer 11/30/2021 1:11 PM documented in this encounter Plan of Treatment Upcoming Encounters Date Type Specialty Care Team Description 12/03/2021 Office Visit [facility] [address] [place] [address] 12/10/2021 Office Visit Gynecology Obstetrics Concetta Khan MD [address] [facility] [place] [address] 12/13/2021 Laboratory Laboratory Processing [facility], [facility] Mobile Home Draw [address] [place] [address] 12/17/2021 Hem/Onc Treatment Hematology Oncology [place], Chair 2 Hem Onc Scenery [address] [place] [address] 12/22/2021 Office Visit Endocrinology Alberta Duque PA-C [address] [place], [place] [id number] 12/23/2021 Office Visit Gastroenterology Lyssa Stout CRNP [address] [facility] [place] [address] 12/27/2021 Laboratory Laboratory Processing [facility], [facility] Mobile Home Draw [address] [place] [address] 12/30/2021 [facility] Visit [facility]oe[facility] [address] [facility] [place] [address] 01/04/2022 Hem/Onc Treatment Hematology Oncology [place], Chair 6 Hem Onc Scenery [address] [place] [address] 01/04/2022 Office Visit Hematology Oncology Tono Sanchez MD [address] [place] [address] 01/10/2022 Laboratory Laboratory Processing [facility] Mobile Home Draw [address] [place] [address] 01/13/2022 Home Visit [facility] Kaylee Barakat, Community Health Machine Programmer [address] [place] [address] 01/24/2022 Laboratory Laboratory Processing [facility] Mobile Home Draw [address] [place] [address] 01/28/2022 Hem/Onc Treatment Hematology Oncology [place], Chair 1 Hem Onc Scenery [address] [place] [address] 02/07/2022 Laboratory Laboratory Processing [facility] Mobile Home Draw [address] [place] [address] 02/18/2022 Hem/Onc Treatment Hematology Oncology [place], Chair 1 Hem Onc Scenery [address] [place], [place] [address] 02/21/2022 Laboratory Laboratory Processing [facility] Mobile Home Draw [address] [place] [address] 03/07/2022 Laboratory Laboratory Processing [facility] Mobile Home Draw [address] [place] [address] 03/11/2022 Hem/Onc Treatment Hematology Oncology [place], Chair 1 Hem Onc Scenery [address] [place] [address] 03/24/2022 Office Visit Pulmonary Reynaldo Marquez MD [address] [place] [id number] 04/01/2022 Hem/Onc Treatment Hematology Oncology [place], Chair 1 Hem Onc Scenery [address] [place] [address] 04/22/2022 Hem/Onc Treatment Hematology Oncology [place], Chair 1 Hem Onc Scenery [address] [place] [address] 05/05/2022 Office Visit Cardiology Quyen Canseco CRNP [address] [place] [address] 06/24/2022 Office Visit Sleep Disorders Love Francisco DO [address] [place] [address] Scheduled Procedures Name Priority Associated Diagnoses Date/Ti [...] of this encounter Implants Implanted Type Area Candy Department Manager Device Identifier Shelf Expiration Date Model / Serial / Lot Microtech Sure Clip Implanted:Qty: 2 on 06/03/2020 by Janis Hatch DO at OR 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
--- OUTSIDE RECORDS SUMMARY | 2023-05-10 19:10 | External Medical Summary | Summary of Care ---
Author Name Unknown Organization [facility] Address [facility] [place] [address] Care Team Providers Care Brake Mechanic Name Role Phone Vanita Dunn MD Primary Care Provid er Encounter Details Date Type Department Care Team Description 11/30/2021 Documentation [facility] [place] [address] [facility] [place] [address] July Poe RN [address] [facility] [place] [address] Allergies Active Allergy Reactions Severity Noted Date [...] 120 Vial 11 10/02/2019 Active nystatin (NYSTOP) 942750 UNIT/GM powder Apply topically to affected area [...] of Breath, Informant: Pharmacy, Reported on 02/04/2021 [email or web address] G6 Gasket Supervisor Device Use as directed. To test [...] Strip 3 10/29/2020 Active OneTouch Delica Plus [id number] TESTING once daily 100 Each 3 10/29/2020 [...] pain 01/24/2012 01/17/2017 Genetic Sleep Disorder Research Other*[id number] 05/13/2011 04/07/2016 Obstructive sleep apnea 01/18/2011 12/27/19 [...] Progress Notes * July Poe RN - 11/30/2021 1:44 PM EDT [facility] Enrollment Form Screening: Referral Source: No data was found Primary Reason for Referral (Select most relevant): No data was found Engagement: Engagement Attempt 1: No data was found Home Information: No data was found Advance Care Planning (ACP): No data was found Has Living Will or Advance Directive: No data was found Anticipated Sub-Program: No data was found Confirmation of Sub-Program Type (by care steam presser): Focused Care Management (3-9 months) Handoff Information: Current care team notified via: No data was found Current telemonitoring equipment: No data was found Patient was reviewed for [facility] sub-program assignment. Patient has been assigned to theFocused Care Management sub-program. Noted that patient's next upcoming [facility] appointment is scheduled for: 12/30/21 documented in this encounter Plan of Treatment Upcoming Encounters Date Type Specialty Care Team Description 12/03/2021 Office Visit [address] [address] 12/10/2021 Office Visit Gynecology Obstetrics Concetta Khan MD [address] [facility] [place] [address] 12/13/2021 Laboratory Laboratory Processing [facility], [facility] Mobile Home Draw [address] [place] [address] 12/17/2021 Hem/Onc Treatment Hematology Oncology [place], Chair 2 Hem Onc Scenery [address] [place] [address] 12/22/2021 Office Visit Endocrinology Alberta Duque PA-C [address], [place] [id number] 12/23/2021 Office Visit Gastroenterology Lyssa Stout CRNP [address] [place] [address] 12/27/2021 Laboratory Laboratory Processing [facility] Mobile Home Draw [address] [place] [address] 12/30/2021 Home Visit [facility] July Poe RN [address] [place] [address] 01/04/2022 Hem/Onc Treatment Hematology Oncology [place], Chair 6 Hem Onc Scenery [address] [place] [address] 01/04/2022 Office Visit Hematology Oncology Tono Sanchez MD [address] [place] [facility] [place] [address] 01/10/2022 Laboratory Laboratory Processing [facility] Mobile Home Draw [address] [place] [address] 01/13/2022 Home Visit [facility] Kaylee Barakat, Community Health Forming Department End Finder [address] [place] [address] 01/24/2022 Laboratory Laboratory Processing [facility] Mobile Home Draw [address] [place] [address] 01/28/2022 Hem/Onc Treatment Hematology Oncology [place], Chair 1 Hem Onc Scenery [address] [place] [address] 02/07/2022 Laboratory Laboratory Processing [facility] Mobile Home Draw [address] [place] [address] 02/18/2022 Hem/Onc Treatment Hematology Oncology [place], Chair 1 Hem Onc Scenery [address] [place] [address] 02/21/2022 Laboratory Laboratory Processing [facility] Mobile Home Draw [address] [place] [address] 03/07/2022 Laboratory Laboratory Processing [facility] Mobile Home Draw [address] [place] [address] 03/11/2022 Hem/Onc Treatment Hematology Oncology [place], Chair 1 Hem Onc Scenery [address] [place] [address] 03/24/2022 Office Visit Pulmonary Reynaldo Marquez MD [address] [place] [address] 04/01/2022 Hem/Onc Treatment Hematology Oncology [place], Chair 1 Hem Onc Scenery [address] [place] [address] 04/22/2022 Hem/Onc Treatment Hematology Oncology [place], Chair 1 Hem Onc Scenery [address] [place] [address] 05/05/2022 Office Visit Cardiology Quyen Canseco CRNP [address] [facility] [place] [address] 06/24/2022 Office Visit Sleep Disorders Love Francisco DO [address] [facility] [place] [address] Scheduled Procedures Name Priority Associated Diagnoses Date/Ti [...] of this encounter Implants Implanted Type Area Esthetician Permanent Makeup Artist Device Identifier Shelf Expiration Date Model / Serial / Lot Microtech Sure Clip Implanted:Qty: 2 on 06/03/2020 by Janis Hatch DO at OR [facility] Clip N/A: Colon 04/21/2022 [facility]-F-26-2 35-C-R / / [id number] documented as of this encounter Advance Directives Documents on File Type Date Recorded 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
--- OUTSIDE RECORDS SUMMARY | 2023-05-10 19:10 | External Medical Summary | Summary of Care ---
Author Name Unknown Organization [place] [address] Care Team Providers Care Auto Machinist Name Role Phone Vanita Dunn MD Primary Care Provid er Reason for Visit * Reason Comments Apprentice Jockey Documentation Encounter Details Date Type Department Care Team Description 11/29/2021 Apprentice Jockey [facility], [facility] [address] [place] [id number] Susan Solis, [facility] [address] [facility] [place] [address] 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 documented as of this encounter (statuses as of 11/29/2021) Medications Medication Sig Dispensed Refills Start Date End Date Status albuterol sulfate (PROVENTIL) (2.5 MG/3ML) 0.083% nebulizer solutionIndications: Pulmonary vascular congestion Inhale 1 Vial via nebulizer every 6 hours as needed for Wheezing. 120 Vial 11 10/02/2019 Active nystatin (NYSTOP) 069246 UNIT/GM powder Apply topically to affected area [...] of Breath, Informant: Pharmacy, Reported on 02/04/2021 DexOmniata G6 Experimental Display Builder Device Use as directed. 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 Due to restrictions of the CO-VID 19 virus and Social Distancing: This interview was conducted over the phone with Shaina [phone] and Aminah> Gilma Valadez Assessment for Social Work Is this for a hospital or rehab discharge to home? No Verified Demographics: Yes Does the patient speak Georgian? Yes Does the patient read Georgian? Yes Is the patient able to understand instructions? Written and Verbal Lives with: > [employer] in the home: > [employer] System outside of the home: WAIVER> [facility] [phone] Aide> Gilma Monday through Monday 9:30AM to 5:30PM Natan Juarez (AKA Beth) Upper Shaper Living Environment: unseen Condition of living environment: unseen Neighborhood: unseen Pets: 4 cats / 2 dogs Transportation: Drives Main Source of Income: Does the patient receive any government assistance? Health Care Benefits: Has health insurance and is adequate to meet needs Nesbit?: No DME Equipment: Wheelchair -C-PAP-Svetlana Ability to Complete: Needs assistance with ADL Education: Spiritual/Faith Beliefs: n/a Life Planning: No Patient's Goals of Care: 1. Stay at home 2. Be independent History of Violence or Trauma: n/a MENTAL STATUS EVALUATION: Orientation: Alert and Oriented to person, place and time Appearance: unseen Eye Contact: unseen Behavior: Cooperative Speech: Soft Mood: Mood Persistence: Responds to attempts Affect: Intensity: Decreased, Range: Decreased, Type: Appropriate Thought Process: Goals directed Thought Content:Within normal limits Attention: Normal Sleep: Good Interest: Down slightly Guilt/Self-blame: n/a Energy: Down significantly Concentration: Good Appetite: Good Psychomotor agitation/retardation: n/a Sex Drive: n/a Mental Health > n/a Smoking > n/a Alcohol > n/a Marital Status > Computer > not active Shopping > / Aide Home > owned Continent > no, Wears protection Fall > n/a Gait > Bed to chair Hearing > good Meals > Aide / As shared they do go out to eat via handicapped van that they own Memory > intact Vision > fair with glasses when used Weight > stable Fpc Facility > n/a Criminal Background>n/a Plan B : remain in the home as long as possible DANGEROUSNESS TO SELF & OTHERS ASSESSMENT: Risk Factors: Suicidal ideation/Intent: n/a Family history of suicide: n/a Access to means: n/a Protective Factors: Easy access to clinical interventions: Yes Family and community support: Please see Community Support section above. Skills in problem solving, conflict resolution and distress tolerance: limited Coping Skills: limited Cultural and confucianism beliefs that discourage suicide and support hopefulness: n/a Substance Abuse Use / History: Denies use of substances Anxiety: n/a Major physical illness: See Problem List Recent losses or change in socio economic status: n/a Assessment: Based on these risk and protective factors, this patient's suicide risk is assessed to be: Minimal Depression Test Summary, Results are Patient Reported: The value you specified in the flowsheet rows parameter was overridden by subcontract administrator build. Remove the value in the flowsheet rows parameter or contact an subcontract administrator. The value you specified in the flowsheet rows parameter was overridden by subcontract administrator build. Remove the value in the flowsheet rows parameter or contact an subcontract administrator. The value you specified in the flowsheet rows parameter was overridden by subcontract administrator build. Remove the value in the flowsheet rows parameter or contact an subcontract administrator.. The value you specified in the flowsheet rows parameter was overridden by subcontract administrator build. Remove the value in the flowsheet rows parameter or contact an subcontract administrator. 1. Little interest or pleasure in doing things The value you specified in the flowsheet rows parameter was overridden by subcontract administrator build. Remove the value in the flowsheet rows parameter or contact an subcontract administrator. 2. Feeling down, depressed or hopeless The value you specified in the flowsheet rows parameter was overridden by subcontract administrator build. Remove the value in the flowsheet rows parameter or contact an subcontract administrator. 3. Trouble falling or staying asleep, or sleeping too much The value you specified in the flowsheetrows parameter was overridden by subcontract administrator build. Remove the value in the flowsheet rows parameter or contact an subcontract administrator. 4. Poor appetite or overeating The value you specified in the flowsheet rows parameter was overridden by subcontract administrator build. Remove the value in the flowsheet rows parameter or contact an subcontract administrator. 5. Feeling tired of having little energy The value you specified in the flowsheet rows parameter was overridden by subcontract administrator build. Remove the value in the flowsheet rows parameter or contact an subcontract administrator. 6. Feeling bad about yourself - or that you are a failure, or have let yourself of your family downThe value you specified in the flowsheet rows parameter was overridden by subcontract administrator build. Remove the value in the flowsheet rows parameter or contact an subcontract administrator. 7. Trouble concentrating on things, such as reading the newspaper or watching television The value you specified in the flowsheet rows parameter was overridden by subcontract administrator build. Remove the value in the flowsheet rows parameter or contact an subcontract administrator. 8. Moving or speaking so slowly that other people could have noticed. Or the opposite being so fidgety or restless that you have been moving around a lot more than usual The value you specified in the flowsheet rows parameter was overridden by subcontract administrator build. Remove the value in the flowsheet rows parameter or contact an subcontract administrator. 9. Thoughts that you would be better off , or of hurting yourself The value you specified in the flowsheet rows parameter was overridden by subcontract administrator build. Remove the value in the flowsheet rows parameter or contact an subcontract administrator. Diagnosed Health Conditions: Patient Active Problem List Diagnosis Date Noted Food insecurity [Z59.41] 09/20/2021 Per [facility] Protocol Chronic diastolic (congestive) heart failure (HCC) [I50.32] 09/13/2021 Portal hypertensive gastropathy (HCC) [K76.6, K31.89] 03/16/2021 Esophageal varices (HCC) [I85.00] 07/06/2020 Iron deficiency anemia due to chronic blood loss [D50.0] 12/03/2019 Thrombocytopenia (HCC) [D69.6] 05/02/2019 Gastroesophageal reflux disease [K21.9] 04/08/2019 Fibromyalgia [M79.7] 04/08/2019 DM type 2 with diabetic peripheral neuropathy (HCC) [E11.42] 04/04/2019 Primary insomnia [F51.01] 04/04/2019 Recurrent major depressive disorder, in partial remission (HCC) [F33.41] 04/04/2019 Impaired mobility and ADLs [Z74.09, Z78.9] 04/04/2019 Wheelchair dependent [Z99.3] 12/21/2018 THAD on CPAP [G47.33, Z99.89] 12/26/2017 Cirrhosis of liver (HCC) [K74.60] 11/20/2017 Chronic pain syndrome [G89.4] 01/17/2017 MEDICATION USE AGREEMENT [TC5358] 01/17/2017 01/17/17 Acquired hypothyroidism [E03.9] 12/12/2016 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 [R39.81] 08/09/2016 Dyslipidemia [E78.5] Obesity, morbid (more than 100 lbs over ideal weight or BMI > 40) (HCC) [E66.01] 02/09/2015 Restrictive lung disease [J98.4] 12/10/2014 Type 2 diabetes mellitus with hemoglobin A1c goal of less than 8.0% ([facility]) [E11.9] 09/26/2013 ICD-10 update of inactive term Vitamin D deficiency [E55.9] 09/26/2013 Lymphedema [I89.0] 03/11/2013 DDD (degenerative disc disease), lumbar [M51.36] Venous stasis dermatitis of both lower extremities [I87.2] 05/07/2012 NG (nonalcoholic steatohepatitis) [K75.81] 05/02/2012 HTN, goal below 130/80 [I10] 03/27/2012 Cerebral palsy ([facility]) [G80.9] 01/24/2012 Spinal stenosis of lumbar region without neurogenic claudication [M48.061] 12/27/2010 Venous insufficiency [I87.2] 01/09/2009 Med Reconciliation: Taking all medication as directed?: Yes Martinez Identified Strengths: Cooperative What does patient believe their strengths are? Aide and Barriers to Treatment: No identified barriers Social Work Goals/Interventions: Behavioral Health needs: No needs identified at this time Drug and Alcohol needs: No needs identified at this time Complex Psychosocial needs: No needs identified at this time Plan: 1/ Requested from July EATON CM to explore aide hours on the weekend. Pt was found incontinent Monday morning with what appeared she was not changed over the weekend. Worker discussed assistance over the weekend with Shaina and Gilma. Both were receptive. They have not made contact with Dulce the Upper Shaper from [facility]. Request was for this worker to make contact. Worker placed a call to [facility] the agency for WAIVER (IEB) [phone]. Spoke to Dulce BARNES As shared, weekend hours have been discussed in the past with Shaina and were declined. Worker placed another request that Shaina is interested now for services on the weekend. Dulce is willing to reach out to Shaina to discuss options she may have. Challenges were shared by Dulce [place] another aide may be difficult to find. An adjustment of hours may be a better solution to the above dilemma. Dulce will call Shaina and update this worker as information becomes available. Shaina/ Gilma offered no other complaints or concerns at this time. Fall precautions were stressed. No falls were recently reported. Emotional Support was offered. Shaina/ Gilma were encouraged to contact the [facility] Team with any questions or concerns. Phone number for [facility] was provided . Worker provided her with contact number [phone]. [facility] [employer] Writer [facility] [phone] documented in this encounter Plan of Treatment Upcoming Encounters Date Type Specialty Care Team Description 11/30/2021 Home Visit Family Medicine Kaylee Barakat, Community Health Staffing Specialist [address] [place] [address] 12/03/2021 Office Visit Pharmacy [facility] [address] [place] [address] [id number] 12/10/2021 Home Visit Family Medicine Kaylee Barakat, Community Health Staffing Specialist [address] [place] [address] 12/10/2021 Office Visit Gynecology Obstetrics Concetta Khan MD [address] [place] [address] 12/13/2021 Laboratory Laboratory Processing [facility], [facility] Home Draw [address] [place] [address] 12/17/2021 Hem/Onc Treatment Hematology Oncology [place], Chair 2 Hem Onc Scenery [address] [place] [address] 12/22/2021 Office Visit Endocrinology Alberta Duque PA-C [address], [place] [id number] 12/23/2021 Office Visit Gastroenterology Lyssa Stout CRNP [address] [place] [address] 12/27/2021 Laboratory Laboratory Processing [facility] Draw [address] [place] [address] 12/30/2021 Home Visit [facility] July Poe RN [address] [place] [address] 01/04/2022 Hem/Onc Treatment Hematology Oncology [place], Chair 6 Hem Onc Scenery [address] [place] [address] 01/04/2022 Office Visit Hematology Oncology Tono Sanchez MD [address] [place] [address] 01/10/2022 Laboratory Laboratory Processing [facility] Draw [address] [place] [address] 01/24/2022 Laboratory Laboratory Processing [facility] Draw [address] [place] [address] 01/28/2022 Hem/Onc Treatment Hematology Oncology [place], Chair 1 Hem Onc Scenery [address] [facility] [address] 02/07/2022 Laboratory Laboratory Processing [facility] Draw [address] [place] [address] 02/18/2022 Hem/Onc Treatment Hematology Oncology [place], Chair 1 Hem Onc Scenery [address] [facility] [address] 02/21/2022 Laboratory Laboratory Processing [facility] Draw [address] [place] [address] 03/07/2022 Laboratory Laboratory Processing [facility] Draw [address] [place] [address] 03/11/2022 Hem/Onc Treatment Hematology Oncology [place], Chair 1 Hem Onc Scenery [address] [place] [address] 03/24/2022 Office Visit Pulmonary Reynaldo Marquez MD [address] [place] [address] 04/01/2022 Hem/Onc Treatment Hematology Oncology [place], Chair 1 Hem Onc Scenery [address] [place] [address] 04/22/2022 Hem/Onc Treatment Hematology Oncology [place], Chair 1 Hem Onc Scenery [address] [place] [address] 05/05/2022 Office Visit Cardiology Quyen Canseco CRNP [address] [place] [address] 06/24/2022 Office Visit Sleep Disorders Love Francisco DO [address] [place] [address] Scheduled Procedures Name Priority Associated Diagnoses Date/Ti [...] of this encounter Implants Implanted Type Area Er Registrar Device Identifier Shelf Expiration Date Model / Serial / Lot [employer] Sure Clip Implanted:Qty: 2 on 06/03/2020 by Janis Hatch DO at OR [facility] Clip N/A: Colon 04/21/2022 [id number] 35-C-[id number] / / [id number] documented as of this encounter Advance Directives Documents on File Type Date Recorded Patient Flume Ride Operator 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 LIVING WILL AND HEALTH CARE POA Power [facility] 04/29/2021 12:00 AM [facility] POA Advanced Directive 04/01/2021 1:14 [...] Bustos Spouse Emergency Contact Care Teams Auto Machinist Relationship Specialty Start Date End Date Vanita Dunn MD [address] [place] [address] PCP - General Family Medicine 03/16/21 documented as of this encounter
--- OUTSIDE RECORDS SUMMARY | 2023-05-10 19:11 | External Medical Summary ---
Author Name Unknown Address Unknown Organization [id number] [address] [place] [address] Laboratory Report Ordering Provider Test Date Status JACOB CORBETT 11/29/2021 09:55:00 Final Observation Date Value Abnormality Reference (Units ) Status Nucleated erythrocytes/100 leukocytes [Ratio] in Blood by Automated count 11/29/2021 09:55:00 Final Anisocytosis [Presence] in Blood by Light microscopy 11/29/2021 09:55:00 Moderate Abnormal None Seen Final Elliptocytes [Presence] in Blood by Light microscopy 11/29/2021 09:55:00 Few Abnormal None Seen Final Hypochromia [Presence] in Blood by Light microscopy 11/29/2021 09:55:00 Slight Abnormal None Seen Final Schistocytes 11/29/2021 09:55:00 Few Abnormal None Seen Final Dacrocytes [Presence] in Blood by Light microscopy 11/29/2021 09:55:00 Few Abnormal None Seen Final Performing Location LAB[facility]ATORY [facility] [place] [address] [place] [address]
--- OUTSIDE RECORDS SUMMARY | 2023-05-10 19:11 | External Medical Summary ---
Author Name Unknown Address Unknown Organization K01:[facility] - [address] [place] [address] Laboratory Report Ordering Provider Test Date Status JACOB CORBETT 11/29/2021 09:55:00 Final Observation Date Value Abnormality Reference (Units ) Status Ferritin 11/29/2021 09:55:00 248 Above high normal 13 -150 (ng/mL) Final Performing Location [facility]ATORY [facility] - [address] [place] [address]
--- OUTSIDE RECORDS SUMMARY | 2023-05-10 19:11 | External Medical Summary ---
Author Name Unknown Address Unknown Organization K01:LABORATORY [facility] [place] - [address] [place] [address] Laboratory Report Ordering Provider Test Date Status JACOB CORBETT 11/29/2021 09:55:00 Final Observation Date Value Abnormality Reference (Units ) Status Iron 11/29/2021 09:55:00 80 33-151 (ug /dL) Final Iron-binding capacity 11/29/2021 09:55:00 273 250-425 (ug/dL) Final Transferrin Sat % 11/29/2021 09:55:00 29 15 -55 (%) Final Performing Location LABORATORY [facility] [place] - [address] [place] [address]
--- OUTSIDE RECORDS SUMMARY | 2023-05-10 19:11 | External Medical Summary ---
Author Name Unknown Address Unknown Organization [id number]:LABORATORY [facility] [place] [address] [place] [address] Laboratory Report Ordering Provider Test Date Status JACOB CORBETT 11/29/2021 09:55:00 Final Observation Date Value Abnormality Reference (Units ) Status SYNC LEUKOCYTES IN BLOOD BY AUTOMATED COUNT 11/29/2021 09:55:00 3.00 Below low normal 4.00-10.80 (K/uL) Final Segs 11/29/2021 09:55:00 46.9 40.0-75.0 (%) Final Lymphs % 11/29/2021 09:55:00 25.7 18.0-42.0 (%) Final Monos 11/29/2021 09:55:00 10.7 1.0-11.0 (%) Final Eosinophils 11/29/2021 09:55:00 16.0 Above high normal 0.0-6.0 (%) Final Basos 11/29/2021 09:55:00 0.7 0.0-2.0 (%) Final Absolute Segs 11/29/2021 09:55:00 1.41 Below low normal 1.80-7.70 (K/uL) Final Lymphs, absolute 11/29/2021 09:55:00 0.77 Below low normal 1.00-4.80 (K/ul) Final Monos, Abs 11/29/2021 09:55:00 0.32 0.00-1.10 (K/uL) Final Eos, Abs 11/29/2021 09:55:00 0.48 0.00-0.70 (K/uL) Final Basos, Abs 11/29/2021 09:55:00 0.02 0.00-0.20 (K/uL) Final Performing Location LAB[facility]ORY [facility] [place] [address] [place] [address]
--- OUTSIDE RECORDS SUMMARY | 2023-05-10 19:11 | External Medical Summary | Summary of Care ---
Author Name Unknown Organization [facility] Address [place] [address] Care Team Providers Care Second Floor Operator Name Role Phone Vanita Dunn MD Primary Care Provid er Reason for Visit * Reason Comments [facility]: Maintenance Encounter Details Date Type Department Care Team Description 11/25/2021 Home Visit [facility], [facility] 132 [facility] [place] [address] July Poe, RN 132 [facility] [place] [address] Other cerebral palsy (HCC)* Allergies Active Allergy Reactions Severity Noted [...] 120 Vial 11 10/02/2019 Active nystatin (NYSTOP) 602433 UNIT/GM powder Apply topically to affected area [...] of Breath, Informant: Pharmacy, Reported on 02/04/2021 DexFashion GPS G6 Molding And Trim Installer Device Use as directed. To test [...] Strip 3 10/29/2020 Active OneTouch Delica Plus [id number] TESTING once daily 100 Each 3 10/29/2020 [...] pain 01/24/2012 01/17/2017 Genetic Sleep Disorder Research Other*[id number] 05/13/2011 04/07/2016 Obstructive sleep apnea 01/18/2011 12/27/19 [...] Sign Reading Time Taken Comments Blood Pressure 102/58 11/25/2021 2:49 PM EDT Pulse 80 11/25/2021 2:49 PM EDT Temperature 35.9 C (96.6 F) 11/25/2021 2 :49 PM EDT Respiratory Rate 18 11/25/2021 2:49 PM EDT Oxygen Saturation 91% 11/25/2021 2:4 9 PM EDT RA and sleeping soundly Inhaled Oxygen Concentration - - Weight - [...] Progress Notes * July Poe RN - 11/25/2021 2:45 PM EDT [facility] Secretary Visit Date: 11/25/2021 Time: 2:46 PM Name: Shaina Bustos : 1955 Current Concerns: Pt seen for return RNCM visit Bloods sugars have been mostly in the 200's - has had some in the 100's - also had some up to 300. Wears dexcom cgm Waiting on pure wick to be delivered. Pt sleeping through most of visit Cg reports she did not sleep well last night and just went back to bed for a nap Missed ob/gyn appt- they were 15 minutes late to the clinic so it was rescheduled for 12/10 Denies any issues with increased SOB or cough Cg reports continued issues with pt getting meds and insulin later morning - feels forgets and notices increased sugars Monday when cg is not here Tries to educate on diet and getting meds at consistent times Has cg m-f from [facility] [phone] Also often has dried stool on bottom from over the weekends and soaked from urine. Pt and cg requested if someone could see her Monday and Monday for personal care, even if for a few hours each day - Referral sent to Cg reports no vaginal bleeding in past week Physical Exam: BP 102/58 | Pulse 80 | Temp 35.9 C (96.6 F) | Resp 18 | SpO2 91% Comment: RA and sleeping soundly Pain 0 Physical Exam Constitutional: Appearance: She [...] Negative. Eyes: Negative. Respiratory: Positive for cough (less frequent). Cardiovascular: Positive for leg swelling. Gastrointestinal: Negative. Endocrine: Negative. Musculoskeletal: Positive for arthralgias and gait problem (non-ambulatory). Neurological: Positive for weakness. Medication Reconciliation: (See medication list) Does patient take medications as ordered: Yes Patient Well Being: PHQ2/9: No questionnaires available. No change in living situation. Denies falls - nonambulatory - uses svetlana lift to get in w/c [facility]-10 Completed this Visit: No. Routine visit Advanced Care Planning: Living Will. and [...] and sinus issues F/U next week with TRAVEL REGISTERED NURSE ICU for vaginal bleeding F/U with heme/onc Referral to Home Interventions Provided: Home Intervention: Other; Evaluation Reinforced current Plan of Care, including self-management and medication regimen Patient's 'Red Flags': 1. Increased SOB 2. Change in mental status 3. BSG <80 or >300 Patient Needs to Remember: Call [facility] at with any new or worsening health concerns or problems, red flag symptoms. Referrals Needed: SW Other none Follow Up: Is there cellular connectivity/connectivity in the home? Yes Does the patient have internet in the home? No Patient encouraged to call the intake phone number for all urgent but not emergent issues. Is the patient new to [facility] within the last 30 days? No, Assess appropriateness for upcoming telehealth visits. Cancel telehealth visits & schedule home visit with care steam fitter helper(s)as indicated. Provider is in agreement with Plan of Care: Yes Scheduled to follow up with patient in 3 weeks with EMILE and 3 weeks after with KATELYN. July Poe RN 11/25/2021 2:46 PM documented in this encounter Plan of Treatment Upcoming Encounters Date Type Specialty Care Team Description 11/30/2021 Home Visit Family Medicine Kaylee Barakat, Community Health Teradata Developer [address] [place] [address] 12/03/2021 Office Visit Pharmacy [facility] [address] [address] 12/10/2021 Home Visit Family Medicine Kaylee Barakat, [facility] Health Teradata Developer [address] [place] [address] 12/10/2021 Office Visit Gynecology Obstetrics Concetta Khan MD [address] [facility] [place] [address] 12/13/2021 Laboratory Laboratory Processing [facility] [place] Mobile Home Draw [address] [place] [address] 12/17/2021 Hem/Onc Treatment Hematology Oncology [place], Chair 2 Hem Onc Scenery [address] [place] [address] 12/22/2021 Office Visit Endocrinology Alberta Duque PA-C [address] [place] [address] 12/23/2021 Office Visit Gastroenterology Lyssa Stout CRNP [facility] [place] [address] 12/27/2021 Laboratory Laboratory Processing [facility] [place] Mobile Home Draw [address] [place] [address] 12/30/2021 [facility] Visit [facility] July Poe, RN [facility] [place] [address] 01/04/2022 Hem/Onc Treatment Hematology Oncology [place], Chair 6 Hem Onc Scenery [address] [place] [address] 01/04/2022 Office Visit Hematology Oncology Tono Sanchez MD [address] [place] [facility] [place] [place] [address] 01/10/2022 Laboratory Laboratory Processing [facility] Mobile Home Draw [address] [place] [address] 01/24/2022 Laboratory Laboratory Processing [facility] Mobile Home Draw [address] [place] [address] 01/28/2022 Hem/Onc Treatment Hematology Oncology [place], Chair 1 Hem Onc Scenery [address] [place] [address] 02/07/2022 Laboratory Laboratory Processing [facility] Mobile Home Draw [address] [place] [address] 02/18/2022 Hem/Onc Treatment Hematology Oncology [place], Chair 1 Hem Onc Scenery [address] [place] [address] 02/21/2022 Laboratory Laboratory Processing [facility] Mobile Home Draw [address] [place] [address] 03/07/2022 Laboratory Laboratory Processing [facility] Mobile Home Draw [address] [place] [address] 03/11/2022 Hem/Onc Treatment Hematology Oncology [place], Chair 1 Hem Onc Scenery [address] [place] [address] 03/24/2022 Office Visit Reynaldo Marks MD [address] [place] [address] 04/01/2022 Hem/Onc Treatment Hematology Oncology [place], Chair 1 Hem Onc Scenery [address] [place] [address] 04/22/2022 Hem/Onc Treatment Hematology Oncology [place], Chair 1 Hem Onc Scenery [address] [place] [address] 05/05/2022 Office Visit Cardiology Quyen Canseco CRNP 132 [facility] [place] [address] 06/24/2022 Office Visit Sleep Disorders Love Francisco DO [address] [place] [address] Scheduled Procedures Name Priority Associated Diagnoses Date/Ti [...] of this encounter Implants Implanted Type Area L[place] Device Identifier Shelf Expiration Date Model / Serial / Lot Microtech Sure Clip Implanted:Qty: 2 on 06/03/2020 by Janis Hatch DO at OR [facility] Clip N/A: Colon 04/21/2022 [facility]-F-26-2 35-C-R / / [id number] documented as of this encounter Visit Diagnoses Diagnosis Other cerebral palsy (HCC)- Primary documented in this encounter Advance Directives Documents on File Type Date Recorded Patient Medical Transcriber 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 WILL AND HEALTH CARE POA Power of Heel Seat Fitter 04/29/2021 12:00 AM TOM R OF LASTING MACHINE OPERATOR HEALTH CARE POA Advanced Directive [...] File Name Relationship Healthcare Agent [facility] Communication Syed Bustos Spouse Emergency Contact Care Teams Second Floor Operator Relationship Specialty Start Date End Date Vanita Dunn MD [address] [place], [place] [id number] PCP - General Family Medicine 03/16/21 documented as of this encounter"
--- OUTSIDE RECORDS SUMMARY | 2023-05-10 19:11 | External Medical Summary ---
Author Name Unknown Address Unknown Organization K0G:[facility] [place] [address] [place] [address] Laboratory Report Ordering Provider Test Date Status JACOB CORBETT 11/29/2021 09:55:00 Final Observation Date Value Abnormality Reference (Units ) Status WBC, Total 11/29/2021 09:55:00 3.00 Below low normal 4. 00-10.80 (K/uL) Final RBC 11/29/2021 09:55:00 2.90 Below low normal 3.8 5-5.15 (M/uL) Final Hemoglobin 11/29/2021 09:55:00 8.7 Below low normal 12 .0-15.3 (g/dL) Final HCT 11/29/2021 09:55:00 28.5 Below low normal 36. 0-45.2 (%) Final MCV 11/29/2021 09:55:00 98.3 Above high normal 81 .5-97.5 (fL) Final MCH 11/29/2021 09:55:00 30.0 27.0-34.0 (pg) Final MCHC 11/29/2021 09:55:00 30.5 Below low normal 32. 0-36.0 (g/dL) Final RDW 11/29/2021 09:55:00 24.3 Above high normal 11 .5-15.5 (%) Final Platelets 11/29/2021 09:55:00 65 Below low normal 140 -400 (K/uL) Final MPV 11/29/2021 09:55:00 Final Performing Location [facility] [address] [place] [address]
--- OUTSIDE RECORDS SUMMARY | 2023-05-10 19:11 | External Medical Summary | Summary of Care ---
Author Name Unknown Organization [facility] Address [facility] [place] [address] Care Team Providers Care Pole Sander Operator Name Role Phone Vanita Dunn MD Primary Care Provid er Reason for Visit * Reason Comments IV Therapy Venofer Encounter Details Date Type Department Care Team Description 11/26/2021 Hem/Onc Treatment Hematology/Oncology Treatment, [place] [address] [place] [address] [place], Chair 3 Hem Onc Scenery [address] [facility] [place] [address] Iron deficiency anemia due to chronic blood loss* 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 documented as of this encounter (statuses as of 11/26/2021) Medications Medication Sig Dispensed Refills Start Date End Date Status albuterol sulfate (PROVENTIL) (2.5 MG/3ML) 0.083% nebulizer solutionIndications: Pulmonary vascular congestion Inhale 1 Vial via nebulizer every 6 hours as needed for Wheezing. 120 Vial 11 10/02/2019 Active nystatin (NYSTOP) 140596 UNIT/GM powder Apply topically to affected area [...] of Breath, Informant: Pharmacy, Reported on 02/04/2021 DexVR1 G6 Sewage Treatment Plant Operator Device Use as directed. To [...] Strip 3 10/29/2020 Active OneTouch Delica Plus [id number] TESTING once daily 100 Each 3 10/29/2020 [...] as of this encounter (statuses as of 11/26/2021) Active Problems Problem Noted Date Food insecurity [...] as of this encounter (statuses as of 11/26/2021) Resolved Problems Problem Noted Date Resolved Date [...] pain 01/24/2012 01/17/2017 Genetic Sleep Disorder Research Other*[id number] 05/13/2011 04/07/2016 Obstructive sleep apnea 01/18/2011 12/27/19 [...] as of this encounter (statuses as of 11/26/2021) Immunizations Name Administration Dates Next Due COVID-19 [...] Sign Reading Time Taken Comments Blood Pressure 124/90 11/26/2021 2:42 PM EDT Pulse 51 11/26/2021 2:42 PM EDT Temperature 36.7 C (98 F) 11/26/2021 2:42 PM EDT Respiratory Rate 18 11/26/2021 2:42 PM EDT Oxygen Saturation - - Inhaled [...] Nursing Notes * Renetta Schuler RN - 11/26/2021 4:22 PM EDT Pt completed treatment without issues. [...] during treatment today. Discharged in stable condition. RP assisted. * Renetta Schuler RN - 11/26/2021 2:43 PM EDT Venofer, pt presents in own power chair. No concerns to report since previous treatment. VAD accessed; NSS/Venofer infusing. Safety and Risk for Injury Patient will remain free from injury. Ensure appropriate safety devices are available. Provide and maintain safe environment. documented in this encounter Plan of Treatment Upcoming Encounters Date Type Specialty Care Team Description 11/29/2021 Laboratory Laboratory Processing [facility] [place] [facility] Mobile Home Draw [address] [place] [address] 11/30/2021 Home Visit Family Medicine Kaylee Barakat, Community Health Lab Scientist [address] [place] [address] 12/03/2021 Office Visit [address] [address] 12/10/2021 Home Visit Family Medicine Kaylee Barakat, Community Health Lab Scientist [address] [place] [address] 12/10/2021 Office Visit Gynecology Obstetrics Concetta Khan MD 400 [facility] [place] [address] 12/13/2021 Laboratory Laboratory Processing [facility] [place] Mobile Home Draw [address] [place] [address] 12/17/2021 Hem/Onc Treatment Hematology Oncology [place], Chair 2 Hem Onc Scenery [address] [facility] [place] [address] 12/22/2021 Office Visit Endocrinology Alberta Duque PA-C [address] [place] [address] 12/23/2021 Office Visit Gastroenterology Lyssa Stout CRNP [address] [place] [address] 12/27/2021 Laboratory Laboratory Processing [facility] Mobile Home Draw [address] [place] [address] 12/30/2021 Home Visit [facility] July Poe RN [address] [place] [address] 01/04/2022 Hem/Onc Treatment Hematology Oncology [place], Chair 6 Hem Onc Scenery 200 [facility] [place] [address] 01/04/2022 Office Visit Hematology Oncology Tono Sanchez MD 200 [place] [address] 01/10/2022 Laboratory Laboratory Processing [facility] Mobile Home Draw [address] [place] [address] 01/24/2022 Laboratory Laboratory Processing [facility] Mobile Home Draw [address] [place] [address] 01/28/2022 Hem/Onc Treatment Hematology Oncology [place], Chair 1 Hem Onc Scenery [facility] [address] 02/07/2022 Laboratory Laboratory Processing [facility] [place] Mobile Home Draw [address] [place] [address] 02/18/2022 Hem/Onc Treatment Hematology Oncology [place], Chair 1 Hem Onc Scenery [address] [place] [address] 02/21/2022 Laboratory Laboratory Processing [facility] [place] Mobile Home Draw [address] [place] [address] 03/07/2022 Laboratory Laboratory Processing [facility] Mobile Home Draw [address] [place] [address] 03/11/2022 Hem/Onc Treatment Hematology Oncology [place], Chair 1 Hem Onc Scenery [address] [place] [address] 03/24/2022 Office Visit Pulmonary Reynaldo Marquez MD [address] [place] [address] 04/01/2022 Hem/Onc Treatment Hematology Oncology [place], Chair 1 Hem Onc Scenery [address] [place] [address] 04/22/2022 Hem/Onc Treatment Hematology Oncology [place], Chair 1 Hem Onc Scenery [address] [place] [address] 05/05/2022 Office Visit Cardiology Quyen Canseco CRNP [address] [place] [address] 06/24/2022 Office Visit Sleep Disorders Love Francisco DO [address] [place] [address] Scheduled Procedures Name Priority Associated Diagnoses Date/Ti [...] of this encounter Implants Implanted Type Area Social Media Assistant Device Identifier Shelf Expiration Date Model / Serial / Lot Microtech Sure Clip Implanted:Qty: 2 on 06/03/2020 by Janis Hatch DO at OR [facility] Clip N/A: Colon 04/21/2022 [facility]-F-26-2 35-C-R / / [id number] documented as of this encounter Visit Diagnoses [...] ONCE PRN Other, Hypersensitivity Reaction, Starting on Mon11/26/21 at 1431, Until 11/27/21 at 1430, For 24 hours EPINEPHrine 1 MG/ML inj 0.3 mg 0.3 mg, Intramuscular, ONCE PRN Other, Hypersensitivity Reaction or Anaphylaxis, Starting on Mon11/26/21 at 1431, Until 11/27/21 at 1430, For 24 hours hEParin 100 UNIT/ML Lock Flush inj 500 Units 500 Units (5 mL), IV Lock, PRN Other, IV Flush, Starting on Mon11/26/21 at 1431, Until 11/27/21 at 1430, For 24 hours, Do not flush if lock, PICC, or central line not in place; IV infusing or unable to flush. Given 11/26/2021 4:01 PM EDT 500 Units Hydrocortisone Na Succinate PF (Solu-Cortef) inj 100 mg 100 mg, IV Push, ONCE PRN Other, Hypersensitivity Reaction, Starting on Mon11/26/21 at 1431, Until 11/27/21 at 1430, For 24 hours NSS infusion 500 mL, Intravenous, at 50 mL/hr, CONTINUOUS, Starting on Mon11/26/21 at 1545, Until 11/27/21 at 0144 Start Infusion 11/26/2021 2:31 PM EDT 500 mL 50 mL/hr sodium chloride 0.9 % flush/inj 10 mL 10 mL, IV Push, PRN Other, IV Flush, Starting on Mon11/26/21 at 1431, Until 11/27/21 at 1430, For 24 hours, Do not flush if lock, PICC, or central line not in place; IV infusing or unable to flush. Given 11/26/2021 4:01 PM EDT 10 mL Inactive Administered Medications - up to 3 most recent administrations Medication Order MAR Action Action Date Dose Rate Site Iron Sucrose (Venofer) 300 mg in NSS 250 mL ivpb 300 mg, IV Piggyback, ONCE, 1 dose, On Mon11/26/21 at 1615, Administer over 90 Minutes Start Infusion 11/26/2021 2:32 PM EDT 300 mg 166.67 mL/hr documented in this encounter Advance Directives Documents on File Type Date Recorded Patient Car Refinisher 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 AND HEALTH CARE POA Power of Advertising Inserter 04/29/2021 12:00 AM TOM R OF STILL PHOTOGRAPHER HEALTH CARE POA Advanced Directive 04/01/2021 1:14 [...] Syed Bustos Spouse Emergency Contact Care Teams Pole Sander Operator Relationship Specialty Start Date End Date Vanita Dunn MD [address] [place] [address] PCP - General Family Medicine 03/16/21 documented as of this encounter
--- OUTSIDE RECORDS SUMMARY | 2023-05-10 19:11 | External Medical Summary | Summary of Care ---
Author Name Unknown Organization [facility] Address [facility] [place] [address] Care Team Providers Care Accounts Payable Processor Name Role Phone Vanita Dunn MD Primary Care Provid er Reason for Visit * Reason Comments IV Therapy Venofer Encounter Details Date Type Department Care Team Description 11/26/2021 Hem/Onc Treatment Hematology/Oncology Treatment, [place] [address] [place] [address] Mary[place], Chair 3 Hem Onc Scenery [address] [facility] [place] [address] Iron deficiency anemia due to chronic blood [...] 120 Vial 11 10/02/2019 Active nystatin (NYSTOP) 669173 UNIT/GM powder Apply topically to affected area [...] of Breath, Informant: Pharmacy, Reported on 02/04/2021 DexEka Systems G6 Precinct Police Captain Device Use as directed. To test blood [...] Strip 3 10/29/2020 Active OneTouch Delica Plus Rwwynf19Y TESTING once daily 100 Each 3 10/29/2020 [...] pain 01/24/2012 01/17/2017 Genetic Sleep Disorder Research Other*[id number] 05/13/2011 04/07/2016 Obstructive sleep apnea 01/18/2011 12/27/19 [...] Care Team Description 11/29/2021 Laboratory Laboratory Processing [facility] [place] Home Draw [address] [place] [address] 11/30/2021 Home Visit Family Medicine Kaylee Barakat, Community Health Label Machine Operator [address] [place] [address] 12/03/2021 Office Visit [address] [address] 12/10/2021 Home Visit Family Medicine Kaylee Barakat, Community Health Label Machine Operator [address] [place] [address] 12/10/2021 Office Visit Gynecology Obstetrics Concetta Khan MD 400 [facility] [place] [address] 12/13/2021 Laboratory Laboratory Processing [facility] [place] Mobile Home Draw [address] [place] [address] 12/17/2021 Hem/Onc Treatment Hematology Oncology [place], Chair 2 Hem Onc Scenery [address] [place] [address] 12/22/2021 Office Visit Endocrinology Alberta Duque PA-C [address] [place] [address] 12/23/2021 Office Visit Gastroenterology Lyssa Stout CRNP [address] [place] [address] 12/27/2021 Laboratory Laboratory Processing [facility] Mobile Home Draw [address] [place] [address] 12/30/2021 Home Visit [facility] July Poe RN [address] [place] [address] 01/04/2022 Hem/Onc Treatment Hematology Oncology [place], Chair 6 Hem Onc Scenery [facility] [address] 01/04/2022 Office Visit Hematology Oncology Tono Sanchez MD [address] [place] [address] 01/10/2022 Laboratory Laboratory Processing [facility] Mobile Home Draw [address] [place] [address] 01/24/2022 Laboratory Laboratory Processing [facility] Mobile Home Draw [address] [place] [address] 01/28/2022 Hem/Onc Treatment Hematology Oncology [place], Chair 1 Hem Onc Scenery [address] [facility] [address] 02/07/2022 Laboratory Laboratory Processing [facility] [place] Mobile Home Draw [address] [place] [address] 02/18/2022 Hem/Onc Treatment Hematology Oncology [place], Chair 1 Hem Onc Scenery [address] [place] [address] 02/21/2022 Laboratory Laboratory Processing [facility] [place] Mobile Home Draw [address] [place] [address] 03/07/2022 Laboratory Laboratory Processing [facility] Mobile Home Draw [address] [place] [address] 03/11/2022 Hem/Onc Treatment Hematology Oncology [place], Chair 1 Hem Onc Scenery [address] [place] [address] 03/24/2022 Office Visit Pulmonary Reynaldo Marquez MD [address] [place] [address] 04/01/2022 Hem/Onc Treatment Hematology Oncology [place], Chair 1 Hem Onc Scenery [address] [place] [address] 04/22/2022 Hem/Onc Treatment Hematology Oncology [place], Chair 1 Hem Onc Scenery [address] [place], [place] [address] 05/05/2022 Office Visit Cardiology Quyen Canseco CRNP [address] [place] [address] 06/24/2022 Office Visit Sleep Disorders Love Francisco DO [address] [place] [address] Scheduled Procedures Name Priority Associated Diagnoses Date/Ti [...] this encounter Implants Implanted Type Area Supervisor Covering And Lining Device Identifier Shelf Expiration Date Model / Serial / Lot Microtech Sure Clip Implanted:Qty: 2 on 06/03/2020 by Janis Hatch DO at OR [facility] Clip N/A: Colon 04/21/2022 [facility]-F-26-2 35-C-R / / [id number] documented as of this encounter Visit Diagnoses [...] Documents on File Type Date Recorded Patient Lab Associate 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 WILL AND HEALTH CARE POA Power of Bioprocessing Manufacturing Technician 04/29/2021 12:00 AM TOM R OF ENGINE LATHE SET UP OPERATOR HEALTH CARE POA Advanced Directive 04/01/2021 [...] Syed Bustos Spouse Emergency Contact Care Teams Accounts Payable Processor Relationship Specialty Start Date End Date Vanita Dunn MD [address] [place] [address] PCP - General Family Medicine 03/16/21 documented as of this encounter
--- OUTSIDE RECORDS SUMMARY | 2023-05-10 19:12 | External Medical Summary | Summary of Care ---
Author Name Unknown Organization [place] [address] Care Team Providers Care Assembly Line Driver Name Role Phone Vanita Dunn MD Primary Care Provid er Reason for Visit * Reason Onset Date Comments Appointment 11/26/2021 salomón Encounter Details Date Type Department Care Team Description 11/26/2021 Telephone Hematology/Oncology [facility] [address] [place] [address] Tono Sanchez MD [address] [place] [address] Appointment (salomón) Allergies Active Allergy Reactions Severity Noted Date [...] 120 Vial 11 10/02/2019 Active nystatin (NYSTOP) 221935 UNIT/GM powder Apply topically to affected area [...] of Breath, Informant: Pharmacy, Reported on 02/04/2021 DexNeocleus G6 Vegetable Grower Device Use as directed. To test [...] Strip 3 10/29/2020 Active OneTouch Delica Plus [id number] TESTING once daily 100 Each 3 10/29/2020 [...] pain 01/24/2012 01/17/2017 Genetic Sleep Disorder Research Other*[id number] 05/13/2011 04/07/2016 Obstructive sleep apnea 01/18/2011 12/27/19 [...] Telephone Encounter - Dinorah Teixeira LPN - 11/26/2021 1:52 PM EDT Rajwinder left message that patient "had an accident and will be late", Called Rajwinder and the patient back, Rajwinder states " her and the patient are fine, they just wanted toknow if they can keep the appointment being 10 mins late." Advised they can. documented in this encounter Plan of Treatment Upcoming Encounters Date Type Specialty Care Team Description 11/29/2021 Laboratory Laboratory Processing [facility], [facility] Mobile Home Draw [address] [place] [address] 11/30/2021 Home Visit Family Medicine Kaylee Barakat, Community Health Production Support Analyst [address] [place] [address] 12/03/2021 Office Visit Pharmacy [place], [address] [address] 12/10/2021 Home Visit Family Medicine Kaylee Barakat, Community Health Production Support Analyst [address] [place] [address] 12/10/2021 Office Visit Gynecology Obstetrics Concetta Khan MD [address] [place] [address] 12/13/2021 Laboratory Laboratory Processing [facility] Mobile Home Draw [address] [place] [address] 12/17/2021 Hem/Onc Treatment Hematology Oncology [place], Chair 2 Hem Onc Scenery [address] [place] [address] 12/22/2021 Office Visit Endocrinology Alberta Duque PA-C [address] [place] [address] 12/23/2021 Office Visit Gastroenterology Lyssa Stout CRNP [address] [facility] [address] 12/27/2021 Laboratory Laboratory Processing [facility], [facility] Mobile Home Draw [address] [place] [address] 12/30/2021 Home Visit [facility] July Poe RN [address] [place] [address] 01/04/2022 Office Visit Hematology Oncology Tono Sanchez MD [address] [place] [address] 01/07/2022 Hem/Onc Treatment Hematology Oncology [place], Chair 1 Hem Onc Scenery [address] [place] [address] 01/10/2022 Laboratory Laboratory Processing [facility] Mobile Home Draw [address] [place] [address] 01/24/2022 Laboratory Laboratory Processing [facility] Mobile Home Draw [address] [place] [address] 01/28/2022 Hem/Onc Treatment Hematology Oncology [place], Chair 1 Hem Onc Scenery [address] [place] [address] 02/07/2022 Laboratory Laboratory Processing [facility] Mobile Home Draw [address] [place] [address] 02/18/2022 Hem/Onc Treatment Hematology Oncology [place], Chair 1 Hem Onc Scenery [address] [place] [address] 02/21/2022 Laboratory Laboratory Processing [facility] Mobile Home Draw [address] [place] [address] 03/07/2022 Laboratory Laboratory Processing [facility] Mobile Home Draw [address] [place] [address] 03/11/2022 Hem/Onc Treatment Hematology Oncology [place], Chair 1 Hem Onc Scenery [address] [place] [address] 03/24/2022 Office Visit Pulmonary Reynaldo Marquez MD [address] [place] [address] 04/01/2022 Hem/Onc Treatment Hematology Oncology [place], Chair 1 Hem Onc Scenery [address] [place] [address] 04/22/2022 Hem/Onc Treatment Hematology Oncology [place], Chair 1 Hem Onc Scenery [address] [place] [address] 05/05/2022 Office Visit Cardiology Quyen Canseco CRNP 132 [facility] [place] [address] 06/24/2022 Office Visit Sleep Disorders Love Francisco DO [address] [facility] [place] [address] Scheduled Procedures Name Priority Associated Diagnoses Date/Ti [...] of this encounter Implants Implanted Type Area Marine Steam Fitter Helper Device Identifier Shelf Expiration Date Model / Serial / Lot Microtech Sure Clip Implanted:Qty: 2 on 06/03/2020 by Janis Hatch DO at OR [facility] Clip N/A: Colon 04/21/2022 [facility]-F-26-2 35-C-R / / [id number] documented as of this encounter Advance Directives Documents on File Type Date Recorded 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 Healthcare Agents on File Name Relationship Healthcare Agent Relationshi p Communication Syed Bustos Spouse Emergency Contact Care Teams Assembly Line Driver Relationship Specialty Start Date End Date Vanita Dunn MD [address] [place] [address] PCP - General Family Medicine 03/16/21 documented as of this encounter
--- OUTSIDE RECORDS SUMMARY | 2023-05-10 19:12 | External Medical Summary | Summary of Care ---
Author Name Unknown Organization [place] [address] Care Team Providers Care Senior Staff Consultant Name Role Phone Vanita Dunn MD Primary Care Provid er Reason for Visit * Reason Onset Date Comments Encounter Created in Error 11/20/2021 Encounter Details Date Type Department Care Team Description 11/20/2021 Refill Gastroenterology, [place] [address] [place] [address] Sergei Sanchez, [address] [place] [address] 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 documented as of this encounter (statuses as of 11/20/2021) Medications Medication Sig Dispensed Refills Start Date End Date Status albuterol sulfate (PROVENTIL) (2.5 MG/3ML) 0.083% nebulizer solutionIndications: Pulmonary vascular congestion Inhale 1 Vial via nebulizer every 6 hours as needed for Wheezing. 120 Vial 11 10/02/2019 Active nystatin (NYSTOP) 018123 UNIT/GM powder Apply topically to affected area [...] of Breath, Informant: Pharmacy, Reported on 02/04/2021 DexCagenix G6 Drapery Sewer Hand Device Use as directed. To test [...] Strip 3 10/29/2020 Active OneTouch Delica Plus Cptfwn53J TESTING once daily 100 Each 3 10/29/2020 [...] once weekly 6 mL 3 04/23/2021 Active Nadolol 40 MG Oral Tablet (Corgard)Indications :HTN, goal below 140/90 Take 1 tablet daily. 90 Tab 1 05/11/2021 Active Spironolactone 25 MG Oral Tablet (Aldactone) [...] as of this encounter (statuses as of 11/20/2021) Active Problems Problem Noted Date Food insecurity [...] as of this encounter (statuses as of 11/20/2021) Resolved Problems Problem Noted Date Resolved Date [...] pain 01/24/2012 01/17/2017 Genetic Sleep Disorder Research Other*[id number] 05/13/2011 04/07/2016 Obstructive sleep apnea 01/18/2011 12/27/19 [...] as of this encounter (statuses as of 11/20/2021) Immunizations Name Administration Dates Next Due COVID-19 [...] encounter Miscellaneous Notes * Telephone Encounter - DEVIKA Trujillo - 11/20/2021 8:06 AM EST Created in error. Thanks, Zoya [employer] Account Executive Pharmacy Refill Call Center 11/20/2021,8:07 AM documented in this encounter Plan of Treatment Upcoming Encounters Date Type Specialty Care Team Description 11/25/2021 Home Visit [facility] July Poe, RN [address] [place] [address] 11/26/2021 Hem/Onc Treatment Hematology Oncology [place], Chair 4 Hem Onc Scenery [address] [place] [address] 11/29/2021 Laboratory Laboratory Processing [facility] Mobile Home Draw [address] [place] [address] 11/30/2021 Home Visit Family [facility] Kaylee Barakat, Community Health Script Reader [address] [place] [address] 12/03/2021 Office Visit [address] [address] 12/10/2021 Home Visit Family [facility] Kaylee Barakat, [facility] Health Script Reader [address] [place] [address] 12/10/2021 Office Visit Gynecology Obstetrics Concetta Khan MD [address] [place] [address] 12/13/2021 Laboratory Laboratory Processing [facility] Mobile Home Draw [address] [place] [address] 12/17/2021 Hem/Onc Treatment Hematology Oncology [place], Chair 2 Hem Onc Scenery [address] [place], [place] [address] 12/22/2021 Office Visit Endocrinology Alberta Duque PA-C [address] [place] [address] 12/23/2021 Office Visit Gastroenterology Lyssa Stout CRNP [address] [place] [address] 12/27/2021 Laboratory Laboratory Processing [facility] Mobile Home Draw [address] [place] [address] 01/04/2022 Office Visit Hematology Oncology Tono Sanchez MD [address] [place] [address] 01/07/2022 Hem/Onc Treatment Hematology Oncology [place], Chair 1 Hem Onc Scenery [address] [place] [address] 01/10/2022 Laboratory Laboratory Processing [facility] Mobile Home Draw [address] [place] [address] 01/24/2022 Laboratory Laboratory Processing [facility] Mobile Home Draw [address] [place] [address] 01/28/2022 Hem/Onc Treatment Hematology Oncology [place], Chair 1 Hem Onc Scenery [address] [place] [address] 02/07/2022 Laboratory Laboratory Processing [facility] Mobile Home Draw [address] [place] [address] 02/18/2022 Hem/Onc Treatment Hematology Oncology [place], Chair 1 Hem Onc Scenery [address] [place] [address] 02/21/2022 Laboratory Laboratory Processing [facility] Mobile Home Draw [address] [place] [address] 03/07/2022 Laboratory Laboratory Processing [facility] Mobile Home Draw [address] [place] [address] 03/11/2022 Hem/Onc Treatment Hematology Oncology [place], Chair 1 Hem Onc Scenery [address] [place] [address] 03/24/2022 Office Visit Pulmonary Reynaldo Marquez MD [address] [place] [address] 04/01/2022 Hem/Onc Treatment Hematology Oncology [place], Chair 1 Hem Onc Scenery [address] [place] [address] 04/22/2022 Hem/Onc Treatment Hematology Oncology [place], Chair 1 Hem Onc Scenery [address] [place] [address] 05/05/2022 Office Visit Cardiology Quyen Canseco CRNP 132 [place] [address] 06/24/2022 Office Visit [facility] Disorders [facility] [address] Scheduled Procedures Name Priority Associated Diagnoses Date/Ti [...] of this encounter Implants Implanted Type Area Cardiopulmonary Technician And Eeg Tech Device Identifier Shelf Expiration Date Model / Serial / Lot Microtech Sure Clip Implanted:Qty: 2 on 06/03/2020 by Janis Hatch DO at OR [facility] Clip N/A: Colon 04/21/2022 [facility]-F-26-2 35-C-R / / [id number] documented as of this encounter Advance Directives Documents on File Type Date Recorded 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
--- OUTSIDE RECORDS SUMMARY | 2023-05-10 19:12 | External Medical Summary | Summary of Care ---
Author Name Unknown Organization [place] [address] Care Team Providers Care Manager Lean Name Role Phone Kojo Dunn MD Primary Care Provid er Reason for Visit * Reason Comments eRx-Medication Refill Encounter Details Date Type Department Care Team Description 11/03/2021 Refill Hepatology, [place] [address] [facility] [place] [id number] Kojo Dunn MD [address] [place], [place] [id number] HTN, goal below 140/90 Allergies Active Allergy [...] 120 Vial 11 0 Active nystatin (NYSTOP) 195028 UNIT/GM powder Apply topically to affected area [...] Informant: Pharmacy, Reported on 02/04/2021 Dexcom G6 Real Estate Photographer Device Use as directed. To test [...] Strip 3 1 Active OneTouch Delica Plus Nenfbi40D TESTING once daily 100 Each 3 1 [...] movements daily 240 mL 3 2 Active Furosemide 20 MG Oral Tablet (Lasix) Take 1 Tablet by mouth daily as needed (lower extremity swelling). EDEMA 30 Tablet 2 2 Active Benzonatate 100 MG Oral Capsule [...] ONCE DAILY 90 Tablet 0 2 Active Nadolol 40 MG Oral Tablet (Corgard)Indication s:HTN, goal below 140/90 Take 1 tablet daily. 90 Tab 1 1 11/21/19 22 Discontinued documented as of this encounter [...] pain 01/24/2012 01/17/2017 Genetic Sleep Disorder Research Other*[id number] 05/13/2011 04/07/2016 Obstructive sleep apnea 01/18/2011 12/27/19 [...] Telephone Encounter - Kojo Dunn MD - 11/20/2021 9:44 AM EST Signed Prescriptions: Disp Refills Nadolol 40 MG Oral Tablet (Corgard) 90 Tab*0 Sig: TAKE 1 TABLET BY MOUTH ONCE DAILY Authorizing Provider: KOJO DUNN * Telephone Encounter - DEVIKA Trujillo - 11/20/2021 8:08 AM EST Pending Prescriptions: Disp Refills Nadolol 40 MG Oral Tablet (Corgard) [Phar*90 Tab*0 Sig: TAKE 1 TABLET BY MOUTH ONCE DAILY Last Visit: 05/11/2021 (in office), Visit date not found (telemedicine) Next Visit: Visit date not found If no future appointments scheduled, and last appointment is greater than a year ago, please schedule patient for a follow-up appointment Last date the medication was ordered: 05/11/2021 Pharmacy: [id number] Is this request for a controlled [...] [facility] July Poe, RN [address] [place] [address] 11/26/2021 Hem/Onc Treatment Hematology [place]cology [place], Chair 4 Hem Onc Scenery [address] [place] [address] 11/29/[address] [facility], [facility] Mobile Home Draw [address] [place] [address] 11/30/2021 Home Visit Family Medicine Kaylee Barakat, Community Health Frame Opener [address] [place] [address] 12/03/2021 Office Visit [address] [address] 12/10/2021 Home Visit Family Medicine Kaylee Barakat, Community Health Frame Opener [address] [place] [address] 12/10/2021 Office Visit Gynecology Obstetrics Concetta Khan MD [address] [place] [address] 12/13/[address] [facility], [facility] Mobile Home Draw [address] [place] [address] 12/17/2021 Hem/Onc Treatment Hematology Oncology [place], Chair 2 Hem Onc Scenery [address] [place] [address] 12/22/2021 Office Visit Endocrinology Alberta Duque PA-C [address] [place], [place] [address] 12/23/2021 Office Visit Gastroenterology Lyssa Stout, ZAK [address] [place] [address] 12/27/2021 Laboratory Laboratory Processing [facility] Mobile Home Draw [address] [place] [address] 01/04/2022 Office Visit Hematology Oncology Tono Sanchez MD [address] [place] [address] 01/07/2022 Hem/Onc Treatment Hematology Oncology [place], Chair 1 Hem Onc Scenery 200 [place] [address] 01/10/2022 Laboratory Laboratory Processing [facility] Mobile Home Draw [address] [place] [address] 01/24/2022 Laboratory Laboratory Processing [facility] Mobile Home Draw [address] [place] [address] 01/28/2022 Hem/Onc Treatment Hematology Oncology [place], Chair 1 Hem Onc Scenery 200 [facility], [place] [address] 02/07/2022 Laboratory Laboratory Processing [facility] Mobile Home Draw [address] [place] [address] 02/18/2022 Hem/Onc Treatment Hematology Oncology [place], Chair 1 Hem Onc Scenery [address] [place] [address] 02/21/2022 Laboratory Laboratory Processing [facility] Mobile Home Draw [address] [place] [address] 03/07/2022 Laboratory Laboratory Processing [facility] Mobile Home Draw [address] [place] [address] 03/11/2022 Hem/Onc Treatment Hematology [place]cology [place], Chair 1 Hem Onc Scenery [address] [place] [address] 03/24/2022 Office Visit Pulmonary Reynaldo Marquez MD [address] [place] [address] 04/01/2022 Hem/Onc Treatment Hematology Oncology [place], Chair 1 Hem Onc Scenery [address] [place] [address] 04/22/2022 Hem/Onc Treatment Hematology [place]cology [place], Chair 1 Hem Onc Scenery [address] [place] [address] 05/05/2022 Office Visit Cardiology Quyen Canseco CRNP [address] [place] [address] 06/24/2022 Office Visit Sleep Disorders Love Francisco DO [address] [place] [address] Scheduled Procedures Name Priority Associated Diagnoses Date/Ti [...] of this encounter Implants Implanted Type Area Pulmonary Specialist Device Identifier Shelf Expiration Date Model / Serial / Lot Microtech Sure Clip Implanted:Qty: 2 on 06/03/2020 by Janis Hatch DO at OR [facility] Clip N/A: Colon 04/21/2022 [facility]-F-26-2 35-C-R / / [id number] documented as of this encounter Visit Diagnoses Diagnosis HTN, goal below 140/90 Unspecified essential hypertension documented in this encounter Advance Directives Documents on File Type Date Recorded 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
--- OUTSIDE RECORDS SUMMARY | 2023-05-10 19:13 | External Medical Summary | Summary of Care ---
Author Name Unknown Organization [facility] Address [place] [address] Care Team Providers Care Wash Crew Person Name Role Phone Vanita Dunn MD Primary Care Provid er Reason for Visit * Reason Onset Date Comments [facility]: Maintenance 11/10/2021 Encounter Details Date Type Department Care Team Description 11/10/2021 Telephone [facility] [address] [facility] [place] [address] [facility], Nurse [facility] [address] [facility] [place] [address] [facility]: Maintenance 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 documented as of this encounter (statuses as of 11/11/2021) Medications Medication Sig Dispensed Refills Start Date End Date Status albuterol sulfate (PROVENTIL) (2.5 MG/3ML) 0.083% nebulizer solutionIndications: Pulmonary vascular congestion Inhale 1 Vial via nebulizer every 6 hours as needed for Wheezing. 120 Vial 11 10/02/2019 Active nystatin (NYSTOP) 248837 UNIT/GM powder Apply topically to affected area [...] of Breath, Informant: Pharmacy, Reported on 02/04/2021 DexJulep G6 Tire Retreader Device Use as directed. To test blood [...] Strip 3 10/29/2020 Active OneTouch Delica Plus [id number] TESTING once daily 100 Each 3 10/29/2020 [...] as of this encounter (statuses as of 11/11/2021) Active Problems Problem Noted Date Food insecurity 09/20/2021 Overview: Per [facility] Protocol Chronic diastolic (congestive) heart [...] as of this encounter (statuses as of 11/11/2021) Resolved Problems Problem Noted Date Resolved Date [...] pain 01/24/2012 01/17/2017 Genetic Sleep Disorder Research Other*[id number] 05/13/2011 04/07/2016 Obstructive sleep apnea 01/18/2011 12/27/19 [...] as of this encounter (statuses as of 11/11/2021) Immunizations Name Administration Dates Next Due COVID-19 [...] * Telephone Encounter - THAD Haas - 11/11/2021 11:23 AM EST email sent to [facility]. THAD Haas * Telephone Encounter - Lakeshia Flores RN - 11/10/2021 4:04 PM EST Phone call from caregiver wanting to follow up on Purewick catheter as it was ordered at the end ofJanuary and patient has not received it as of yet. Caregiver states someone called and said they never received any signed documentation. Message routed to AP and schedulers ARASH Rodriguez Primer [facility] documented in this encounter Plan of Treatment Upcoming Encounters Date Type Specialty Care Team Description 11/12/2021 Office Visit Gynecology Obstetrics Concetta Khan MD [address] [place], [place] [id number] 11/15/2021 Laboratory Laboratory Processing [facility] Home Draw [address] [place] [address] 11/16/2021 Office Visit Family Medicine Vanita Dunn MD [address] [place] [address] 11/18/2021 Office Visit Pharmacy [facility] [address] [place] [address] 11/25/2021 [facility] Visit [facility] July Poe RN [address] [place] [address] 11/26/2021 Hem/Onc Treatment Hematology Oncology [place], Chair 4 Hem Onc Scenery [address] [place] [address] 11/29/2021 Laboratory Laboratory Processing [facility] Mobile Home Draw [address] [place] [address] 11/30/2021 Home Visit Family Medicine Kaylee Barakat, Community Health Fireworks Assembler [address] [place] [address] 12/10/2021 Home Visit Family Medicine Kaylee Barakat, Community Health Fireworks Assembler [address] [place] [address] 12/13/2021 Laboratory Laboratory Processing c, [facility] Mobile Home Draw [address] [place] [address] 12/17/2021 Hem/Onc Treatment Hematology Oncology [place], Chair 2 Hem Onc Scenery [address] [facility] [place] [address] 12/22/2021 Office Visit Endocrinology Alberta Duque PA-C [address] [place] [address] 12/23/2021 Office Visit Gastroenterology Lyssa Stout CRNP [address] [place] [address] 12/27/2021 Laboratory Laboratory Processing [facility] Mobile [facility] Draw [address] [place] [address] 01/04/2022 Office Visit Hematology Oncology Tono Sanchez MD [address] [place] [address] 01/07/2022 Hem/Onc Treatment Hematology Oncology [place], Chair 1 Hem Onc Scenery 200 [facility] [place] [address] 01/10/2022 Laboratory Laboratory Processing [facility] Mobile Home Draw [address] [place] [address] 01/24/2022 Laboratory Laboratory Processing [facility] Mobile Home Draw [address] [place] [address] 01/28/2022 Hem/Onc Treatment Hematology Oncology [place], Chair 1 Hem Onc Scenery [address] [facility] [place] [address] 02/07/2022 Laboratory Laboratory Processing [facility] Mobile Home Draw [address] [place] [address] 02/18/2022 Hem/Onc Treatment Hematology Oncology [place], Chair 1 Hem Onc Scenery [address] [place] [address] 02/21/2022 Laboratory Laboratory Processing [facility] Mobile Home Draw [address] [place] [address] 03/07/2022 Laboratory Laboratory Processing [facility] Mobile Home Draw [address] [place] [address] 03/11/2022 Hem/Onc Treatment Hematology Oncology [place], Chair 1 Hem Onc Scenery [address] [place] [address] 03/24/2022 Office Visit Pulmonary Reynaldo Marquez MD [address] [place] [address] 04/01/2022 Hem/Onc Treatment Hematology Oncology [place], Chair 1 Hem Onc Scenery [address] [place] [address] 04/22/2022 Hem/Onc Treatment Hematology Oncology [place], Chair 1 Hem Onc Scenery [address] [place], [place] [address] 05/05/2022 Office Visit Cardiology Quyen Canesco CRNP [address] [place] [address] 06/24/2022 Office Visit Sleep Disorders Love Francisco DO [address] [place] [address] Scheduled Procedures Name Priority Associated Diagnoses Date/Ti [...] this encounter Implants Implanted Type Area Power Press Supervisor Device Identifier Shelf Expiration Date Model / Serial / Lot Microtech Sure Clip Implanted:Qty: 2 on 06/03/2020 by Janis Hatch DO at OR [facility] Clip N/A: Colon 04/21/2022 [facility]-F-[id number] 35-C-R / / [id number] documented as of this encounter Advance Directives Documents on File Type Date Recorded Patient Gaming Investigator 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 DIRECTIVE / LIVING WILL LIVING [facility] POA Kennan [employer] [facility] 04/29/2021 12:00 AM TOM R [facility] POA Advanced Directive 04/01/2021 1:14 PM Advanced [...] Syed Bustos Spouse Emergency Contact Care Teams Wash Crew Person Relationship Specialty Start Date End Date Vanita Dunn MD [address] [place] [address] PCP - General Family Medicine 03/16/21 documented as of this encounter
--- OUTSIDE RECORDS SUMMARY | 2023-05-10 19:13 | External Medical Summary | Summary of Care ---
Author Name Unknown Organization [place] [address] Care Team Providers Care Enamel Burner Name Role Phone Vanita Dunn MD Primary Care Provid er Reason for Visit * Reason Comments Follow Up Routine Encounter Details Date Type Department Care Team Description 11/16/2021 Office Visit [facility] [address] [place] [address] Vanita Dunn MD [address] [place] [address] Type 2 diabetes mellitus with hemoglobin A1c goal of less than 8.0% (HCC)*; DM type 2 with diabetic peripheral neuropathy (HCC); Acquired hypothyroidism; Dyslipidemia; THAD on CPAP; Secondary esophageal varices without bleeding (HCC); Chronic diastolic (congestive) heart failure (HCC); HTN, goal below 130/80; Other cirrhosis of liver (HCC); Obesity, morbid (more than 100 lbs over ideal weight or BMI > 40) (HCC); Portal hypertensive gastropathy (HCC); Other cerebral palsy (HCC); Chronic pain syndrome 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 documented as of this encounter (statuses as of 11/16/2021) Medications Medication Sig Dispensed Refills Start Date End Date Status albuterol sulfate (PROVENTIL) (2.5 MG/3ML) 0.083% nebulizer solutionIndications: Pulmonary vascular congestion Inhale 1 Vial via nebulizer every 6 hours as needed for Wheezing. 120 Vial 11 10/02/2019 Active nystatin (NYSTOP) 598312 UNIT/GM powder Apply topically to affected area [...] Informant: Pharmacy, Reported on 02/04/2021 Dexcom G6 School Library Media Program Director Device Use as directed. To test [...] Strip 3 10/29/2020 Active OneTouch Delica Plus [id number] TESTING once daily 100 Each 3 10/29/2020 [...] as of this encounter (statuses as of 11/16/2021) Active Problems Problem Noted Date Food insecurity [...] as of this encounter (statuses as of 11/16/2021) Resolved Problems Problem Noted Date Resolved Date [...] pain 01/24/2012 01/17/2017 Genetic Sleep Disorder Research Other*[id number] 05/13/2011 04/07/2016 Obstructive sleep apnea 01/18/2011 12/27/19 [...] as of this encounter (statuses as of 11/16/2021) Immunizations Name Administration Dates Next Due COVID-19 [...] Sign Reading Time Taken Comments Blood Pressure 116/72 11/16/2021 11:57 AM EST Pulse 58 11/16/2021 11:57 AM EST Temperature 35.9 C (96.7 F) 11/16/2021 11:[address] Respiratory Rate - - Oxygen Saturation 95% 11/16/2021 11:57 AM EST Inhaled Oxygen Concentration - - [...] Progress Notes * Vanita Dunn MD - 11/16/2021 12:20 PM EST ASSESSMENT / PLAN: Type 2 diabetes mellitus with hemoglobin A1c goal of less than 8.0% (HCC) (Primary) DM type 2 with diabetic peripheral neuropathy (HCC) Acquired hypothyroidism Dyslipidemia THAD on CPAP Secondary esophageal varices without bleeding (HCC) Chronic diastolic (congestive) heart failure (HCC) HTN, goal below 130/80 Other cirrhosis of liver (HCC) Obesity, morbid (more than 100 lbs over ideal weight or BMI > 40) (HCC) Portal hypertensive gastropathy (HCC) Other cerebral palsy (HCC) Chronic pain syndrome 66 yo F with multiple comorbidities - here for recheck - discussed pure wick order which her providers with [facility] are processing. Discussed diet modifications to maintain glycemic control. Discussed pain control with tylenol and tramadol prn. She has follow up with gynecology for her postmenopausal bleeding. All questions answered. If needed, prefers contact by: Ok to leave message on phone: Total time: I spent a total of 40-54 minutes (exact time 40 mins) on the date of service in preparation, delivery, and documentation of the care provided to Shaina Bustos excluding any time spent in the performance of separately billed services. SUBJECTIVE: Shaina Bustos is a 66 year old female. Nursing Notes: Tamara Fabian LPN 11/16/21 1202 Signed Chief Complaint Patient presents with Follow Up Routine HPI: 66 yo F wheelchair bound, h/o CP, chronic diastolic HF, cirrhosis of liver NG complicated byesoph varices and portal hypertensive gastropathy, T2DM, morbid obesity, htn, hld , THAD on CPAP andchronic pain - here for f/u - accompanied by Torrie her home health aide who started working with pt M-F morning till 5p since Jul 2021 - says that interim history includes new postmenopausal vaginal bleeding that is in the process of being evaluated by gynecology. HH aide also notes some elevatedBSGs lately, related to ingesting foods/drinks higher on glycemic index. They are ablet ot administer insulin and it does go back down. Pt is in care of [facility], she is awaiting an order for Donovan Collins which apparently her insurance has approved, this will help with quality of life greatly. HH tyreestiven notes that moving pt with lift/special chair is getting harder for patient's Brice to do given pain/arthritis in his right arm. Current Outpatient Medications Medication Sig Dispense Refill albuterol sulfate (PROVENTIL) (2.5 MG/3ML) 0.083% nebulizer solution Inhale 1 Vial via nebulizer every 6 hours as needed for Wheezing. 120 Vial 11 nystatin (NYSTOP) 376090 UNIT/GM powder Apply topically to affected area 3 times a day. (Patient not taking: Reported on 11/04/2021 ) 60 g 1 Albuterol Sulfate (ALBUTEROL [...] of Breath.) 3 mL 10 Dexcom G6 School Library Media Program Director Device Use as directed. To test [...] daily 100 Strip 3 OneTouch Delica Plus [id number] TESTING once daily 100 Each 3 Nitroglycerin 0.4 MG Sublingual Tablet Sublingual (Nitrostat) Place 1 Tab under the tongue every 5 minutes as needed for Pain, Chest. up to 3 doses in 15 minutes (Patient not taking: Reported on 11/04/2021 ) 25 Tab 11 BiPAP every night [...] the skin once weekly 6 mL 3 Nadolol 40 MG Oral Tablet (Corgard) Take 1 tablet daily. 90 Tab 1 Spironolactone 25 MG Oral Tablet (Aldactone) Take 2 Tabs by mouth daily. 60 Tab 5 Docusate Sodium 100 MG Oral Capsule [...] 3-5 bowel movements daily 240 mL 3 Furosemide 20 MG Oral Tablet (Lasix) Take 1 Tablet by mouth daily as needed (lower extremity swelling). EDEMA 30 Tablet 2 Benzonatate 100 MG Oral Capsule (Tessalon Perles) [...] the nose twice daily 22 g 0 No current facility-administered medications for this visit. OBJECTIVE: BP 116/72 | Pulse 58 | Temp 35.9 C (96.7 F) (Tympanic) | SpO2 95% Vitals reviewed and is normotensive afebrile and not tachycardic and not hypoxic General: No acute distress. Neuro: Alert Pleasant & interactive. Sitting upright in her wheelchair. Respiratory: Good inspiratory effort, no labored breathing. +wheeze on Right mid lower base. Clear to auscultation on left. HEENT: Conjunctivae appear clear. No swelling noted face or lips. Skin: No rash visible on exposed skin areas, normal coloration & appears dry. Psych: Normal affect. Fluent speech. Vanita Dunn MD [address] [phone] There are no Patient Instructions on file for this visit. documented in this encounter Nursing Notes * Tamara Fabian LPN - 11/16/2021 11:58 AM EST Chief Complaint Patient presents with Follow Up Routine documented in this encounter Plan of Treatment Upcoming Encounters Date Type Specialty Care Team Description 11/18/2021 Office Visit Pharmacy [facility] [address] [place] [address] 11/25/2021 [facility] Visit [facility] July Poe RN [address] [place] [address] 11/26/2021 Hem/Onc Treatment Hematology Oncology [place], Chair 4 Hem Onc Scenery [address] [place] [address] 11/29/2021 Laboratory Laboratory Processing [facility] Mobile Home Draw [address] [place] [address] 11/30/2021 Home Visit Family Medicine Kaylee Barakat, Community Health Audiometric Technician [address] [place] [address] 12/10/2021 Home Visit Family Medicine Kaylee Barakat, Community Health Audiometric Technician [address] [place] [address] 12/10/2021 Office Visit Gynecology Obstetrics Concetta Khan MD [address] [place] [address] [place] [id number] 12/13/2021 Laboratory Laboratory Processing [facility] Mobile Home Draw [address] [place] [address] 12/17/2021 Hem/Onc Treatment Hematology Oncology [place], Chair 2 Hem Onc Scenery [address] [place] [address] 12/22/2021 Office Visit Endocrinology Alberta Duque PA-C [address] [place] [address] 12/23/2021 Office Visit Gastroenterology Lyssa Stout CRNP [address] [place] [address] 12/27/2021 Laboratory Laboratory Processing [facility] Mobile Home Draw [address] [place] [address] 01/04/2022 Office Visit Hematology Oncology Tono Sanchez MD [facility] [place] [address] 01/07/2022 Hem/Onc Treatment Hematology Oncology [place], Chair 1 Hem Onc Scenery 200 [facility] [place] [address] 01/10/2022 Laboratory Laboratory Processing [facility] Mobile [facility] Draw [address] [place] [address] 01/24/2022 Laboratory Laboratory Processing [facility] Draw [address] [place] [address] 01/28/2022 Hem/Onc Treatment Hematology Oncology [place], Chair 1 Hem Onc Scenery 200 [place] [address] 02/07/2022 Laboratory Laboratory Processing [facility] Mobile Home Draw [address] [place] [address] 02/18/2022 Hem/Onc Treatment Hematology Oncology [place], Chair 1 Hem Onc Scenery [address] [place] [address] 02/21/2022 Laboratory Laboratory Processing [facility] Mobile Home Draw [address] [place] [address] 03/07/2022 Laboratory Laboratory Processing [facility] Mobile Home Draw [address] [place] [address] 03/11/2022 Hem/Onc Treatment Hematology Oncology [place], Chair 1 Hem Onc Scenery [address] [facility] [address] 03/24/2022 Office Visit Pulmonary Reynaldo Marquez MD [address] [place] [address] 04/01/2022 Hem/Onc Treatment Hematology Oncology [place], Chair 1 Hem Onc Scenery [address] [facility] [address] 04/22/2022 Hem/Onc Treatment Hematology Oncology [place], Chair 1 Hem Onc Scenery [address] [place] [address] 05/05/2022 Office Visit Cardiology Quyen Canseco CRNP [address] [facility] [place] [address] 06/24/2022 Office Visit Sleep Disorders Love Francisco DO [address] [facility] [place] [address] Scheduled Procedures Name Priority Associated Diagnoses Date/Ti [...] of this encounter Implants Implanted Type Area Sales Representative Aircraft Device Identifier Shelf Expiration Date Model / Serial / Lot Microtech Sure Clip Implanted:Qty: 2 on 06/03/2020 by Janis Hatch DO at OR [facility] Clip N/A: Colon 04/21/2022 [facility]-F-26-2 35-C-R / / [id number] documented as of this encounter Visit Diagnoses Diagnosis Type 2 diabetes mellitus with hemoglobin A1c goal of less than 8.0% (HCC)- Primary DM type 2 with diabetic peripheral neuropathy (HCC) Type II or unspecified type diabetes mellitus with neurological manifestations, not stated as uncontrolled Acquired hypothyroidism Unspecified hypothyroidism Dyslipidemia Other and unspecified hyperlipidemia THAD on CPAP Obstructive sleep apnea (adult) (pediatric) Secondary esophageal varices without bleeding (HCC) Esophageal varices without mention of bleeding in diseases classified elsewhere Chronic diastolic (congestive) heart failure (HCC) HTN, goal below 130/80 Unspecified essential hypertension Other cirrhosis of liver (HCC) Obesity, morbid (more than 100 lbs over ideal weight or BMI > 40) (HCC) Morbid obesity Portal hypertensive gastropathy (HCC) Other specified disorder of stomach and duodenum Other cerebral palsy (HCC) Chronic pain syndrome documented in this encounter Advance Directives Documents on File Type Date Recorded Patient Director Of Vocational Guidance 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 WILL AND HEALTH CARE POA Power of Wellness Spa Manager 04/29/2021 12:00 AM TOM R OF [facility] POA Advanced Directive 04/01/2021 1:14 [...] on File Name Relationship Healthcare Agent [facility] Syed Bustos Spouse Emergency Contact Care Teams Enamel Burner Relationship Specialty Start Date End Date Vanita Dunn MD [place] [address] PCP - General Family Medicine 03/16/21 documented as of this encounter"
--- OUTSIDE RECORDS SUMMARY | 2023-05-10 19:13 | External Medical Summary ---
Author Name Unknown Address Unknown Organization [id number] [facility] [address] [place] [address] Laboratory Report Ordering Provider Test Date Status JACOB CORBETT 11/15/2021 07:48:00 Final Observation Date Value Abnormality Reference (Units ) Status Nucleated erythrocytes/100 leukocytes [Ratio] in Blood by Automated count 11/15/2021 07:48:00 Final Anisocytosis [Presence] in Blood by Light microscopy 11/15/2021 07:48:00 Moderate Abnormal None Seen Final Elliptocytes [Presence] in Blood by Light microscopy 11/15/2021 07:48:00 Few Abnormal None Seen Final Hypochromia [Presence] in Blood by Light microscopy 11/15/2021 07:48:00 Slight Abnormal None Seen Final Dacrocytes [Presence] in Blood by Light microscopy 11/15/2021 07:48:00 Few Abnormal None Seen Final Performing Location [facility] [address] [place] [address]
--- OUTSIDE RECORDS SUMMARY | 2023-05-10 19:13 | External Medical Summary ---
Author Name Unknown Address Unknown Organization K01:LABORATORY [facility] - [address] [place] [address] Laboratory Report Ordering Provider Test Date Status JACOB CORBETT 11/15/2021 07:48:00 Final Observation Date Value Abnormality Reference (Units ) Status Ferritin 11/15/2021 07:48:00 170 Above high normal 13 -150 (ng/mL) Final Performing Location LAB[facility]ATORY [facility] - [address] [place] [address]
--- OUTSIDE RECORDS SUMMARY | 2023-05-10 19:13 | External Medical Summary ---
Author Name Unknown Address Unknown Organization K01:[facility]ORY [facility] [address] [place] [address] Laboratory Report Ordering Provider Test Date Status JACOB CORBETT 11/15/2021 07:48:00 Final Observation Date Value Abnormality Reference (Units ) Status Iron 11/15/2021 07:48:00 43 33-151 (ug /dL) Final Iron-binding capacity 11/15/2021 07:48:00 272 250-425 (ug/dL) Final Transferrin Sat % 11/15/2021 07:48:00 16 15 -55 (%) Final Performing Location [facility] - [address] [place] [address]
--- OUTSIDE RECORDS SUMMARY | 2023-05-10 19:13 | External Medical Summary ---
Author Name Unknown Address Unknown Organization K0G:[facility]ORY [facility] [address] [place] [address] Laboratory Report Ordering Provider Test Date Status JACOB CORBETT 11/15/2021 07:48:00 Final Observation Date Value Abnormality Reference (Units ) Status WBC, Total 11/15/2021 07:48:00 3.18 Below low normal 4. 00-10.80 (K/uL) Final RBC 11/15/2021 07:48:00 2.85 Below low normal 3.8 5-5.15 (M/uL) Final Hemoglobin 11/15/2021 07:48:00 8.3 Below low normal 12 .0-15.3 (g/dL) Final HCT 11/15/2021 07:48:00 27.7 Below low normal 36. 0-45.2 (%) Final MCV 11/15/2021 07:48:00 97.2 81.5-97.5 (fL) Final MCH 11/15/2021 07:48:00 29.1 27.0-34.0 (pg) Final MCHC 11/15/2021 07:48:00 30.0 Below low normal 32. 0-36.0 (g/dL) Final RDW 11/15/2021 07:48:00 23.0 Above high normal 11 .5-15.5 (%) Final Platelets 11/15/2021 07:48:00 73 Below low normal 140 -400 (K/uL) Final MPV 11/15/2021 07:48:00 Final Performing Location [facility]ORY [facility] [address] [place] [address]
--- OUTSIDE RECORDS SUMMARY | 2023-05-10 19:13 | External Medical Summary ---
Author Name Unknown Address Unknown Organization K0G:LAB[facility]ORY [facility] [address] [place] [address] Laboratory Report Ordering Provider Test Date Status JACOB CORBETT 11/15/2021 07:48:00 Final Observation Date Value Abnormality Reference (Units ) Status SYNC LEUKOCYTES IN BLOOD BY AUTOMATED COUNT 11/15/2021 07:48:00 3.18 Below low normal 4.00-10.80 (K/uL) Final Segs 11/15/2021 07:48:00 46.3 40.0-75.0 (%) Final Lymphs % 11/15/2021 07:48:00 28.6 18.0-42.0 (%) Final Monos 11/15/2021 07:48:00 13.5 Above high normal 1.0-11.0 (%) Final Eosinophils 11/15/2021 07:48:00 11.0 Above high normal 0.0-6.0 (%) Final Basos 11/15/2021 07:48:00 0.6 0.0-2.0 (%) Final Absolute Segs 11/15/2021 07:48:00 1.47 Below low normal 1.80-7.70 (K/uL) Final Lymphs, absolute 11/15/2021 07:48:00 0.91 Below low normal 1.00-4.80 (K/ul) Final Monos, Abs 11/15/2021 07:48:00 0.43 0.00-1.10 (K/uL) Final Eos, Abs 11/15/2021 07:48:00 0.35 0.00-0.70 (K/uL) Final Basos, Abs 11/15/2021 07:48:00 0.02 0.00-0.20 (K/uL) Final Performing Location LAB[facility]ORY [facility] [address] [place] [address]
--- OUTSIDE RECORDS SUMMARY | 2023-05-10 19:14 | External Medical Summary | Summary of Care ---
Author Name Unknown Organization [facility] Address [place], [place] [address] Care Team Providers Care Clearance Center Manager Name Role Phone Vanita Dunn MD Primary Care Provid er Reason for Visit * Reason Comments IV Therapy venofer Encounter Details Date Type Department Care Team Description 11/09/2021 Hem/Onc Treatment Hematology/Oncology Treatment, [place] [address] [place] [address] Maryellen, Chair 1 Hem Onc Scenery [address] [facility] [place] [address] Iron deficiency anemia due to chronic blood loss* 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 documented as of this encounter (statuses as of 11/09/2021) Medications Medication Sig Dispensed Refills Start Date End Date Status albuterol sulfate (PROVENTIL) (2.5 MG/3ML) 0.083% nebulizer solutionIndications: Pulmonary vascular congestion Inhale 1 Vial via nebulizer every 6 hours as needed for Wheezing. 120 Vial 11 10/02/2019 Active nystatin (NYSTOP) 142362 UNIT/GM powder Apply topically to affected area [...] of Breath, Informant: Pharmacy, Reported on 02/04/2021 DexTrademarkia G6 Ivory Carver Device Use as directed. To test blood [...] Strip 3 10/29/2020 Active OneTouch Delica Plus [id number] TESTING once daily 100 Each 3 10/29/2020 [...] as of this encounter (statuses as of 11/09/2021) Active Problems Problem Noted Date Food insecurity [...] as of this encounter (statuses as of 11/09/2021) Resolved Problems Problem Noted Date Resolved Date [...] pain 01/24/2012 01/17/2017 Genetic Sleep Disorder Research Other*[id number] 05/13/2011 04/07/2016 Obstructive sleep apnea 01/18/2011 12/27/19 [...] as of this encounter (statuses as of 11/09/2021) Immunizations Name Administration Dates Next Due COVID-19 [...] Sign Reading Time Taken Comments Blood Pressure 109/71 11/09/2021 1:31 PM EST Pulse 67 11/09/2021 1:31 PM EST Temperature 36.2 C (97.2 F) 11/09/2021 1:31 PM ES T Respiratory Rate 16 11/09/2021 1:31 PM EST Oxygen Saturation - - Inhaled [...] as of this encounter Nursing Notes * Bella Ramires LPN - 11/09/2021 3:21 PM EST Venofer infused. Port de-accessed by SHASHA RN. Pt tolerated well. Discharged in stable condition. * Bella Ramires LPN - 11/09/2021 2:40 PM EST venofer infusing. Pt tolerating well. documented in this encounter Plan of Treatment Upcoming Encounters Date Type Specialty Care Team Description 11/10/2021 Office Visit Pharmacy [facility] [address] [place] [address] 11/11/2021 Home Visit Family Medicine Kaylee Barakat, Community Health Rehab Therapy Manager [address] [place] [address] 11/12/2021 Office Visit Gynecology Obstetrics Concetta Khan MD [address] [place], [place] [phone] 11/15/[address] [facility], [facility] Mobile Home Draw [address] [place] [address] 11/16/2021 Office Visit Family Medicine Vanita Dunn MD [address] [place] [address] 11/25/2021 [facility] Poe, [facility] [address] [facility] [address] 11/26/2021 Hem/Onc Treatment Hematology [place]cology [place], Chair 4 Hem Onc Scenery [address] [facility] [address] 11/29/[address] [facility], [facility] Mobile Home Draw [address] [place] [address] 11/30/2021 Home Visit Family Medicine Kaylee Barakat, Community Health Rehab Therapy Manager [address] [place] [address] 12/13/2021 Laboratory Laboratory Processing [facility] Mobile Home Draw [address] [place] [address] 12/17/2021 Hem/Onc Treatment Hematology Oncology [place], Chair 2 Hem Onc Scenery [address] [place] [address] 12/22/2021 Office Visit Endocrinology Alberta Duque PA-C [address] [place] [address] 12/23/2021 Office Visit Gastroenterology Lyssa Stout CRNP [address] [place] [address] 12/27/2021 Laboratory Laboratory Processing c, [facility] Mobile Home Draw [address] [place] [address] 01/04/2022 Office Visit Hematology Oncology Tono Sanchez MD [address] [place] [address] 01/07/2022 Hem/Onc Treatment Hematology Oncology [place], Chair 1 Hem Onc Scenery [address] [place] [address] 01/10/2022 Laboratory Laboratory Processing [facility] Mobile Home Draw [address] [place] [address] 01/24/2022 Laboratory Laboratory Processing [facility] Mobile Home Draw [address] [place] [address] 01/28/2022 Hem/Onc Treatment Hematology [place]cology [place], Chair 1 Hem Onc Scenery [address] [place] [address] 02/07/[address] [facility], [facility] Mobile Home Draw [address] [place] [address] 02/18/2022 Hem/Onc Treatment Hematology [place]cology [place], Chair 1 Hem Onc Scenery [address] [place] [address] 02/21/2022 Laboratory Laboratory Processing [facility] Mobile Home Draw [address] [place] [address] 03/07/2022 Laboratory Laboratory Processing [facility] Mobile Home Draw [address] [place] [address] 03/11/2022 Hem/Onc Treatment Hematology [place]cology [place], Chair 1 Hem Onc Scenery [address] [place] [address] 03/24/2022 Office Visit Pulmonary Reynaldo Marquez [facility] [address] [facility] [place] [id number] 04/01/2022 Hem/Onc Treatment Hematology [place]cology [place], Chair 1 Hem Onc Scenery [address] [place] [address] 04/22/2022 Hem/Onc Treatment Hematology [place]cology [place], Chair 1 Hem Onc Scenery [address] [place] [address] 05/05/2022 Office Visit Cardiology Quyen Canseco CRNP [address] [place] [address] 06/24/2022 Office Visit Sleep Disorders Love Francisco, DO [address] [place] [address] Scheduled Procedures Name Priority Associated Diagnoses Date/Ti [...] of this encounter Implants Implanted Type Area Weight Training Instructor Device Identifier Shelf Expiration Date Model / Serial / Lot Microtech Sure Clip Implanted:Qty: 2 on 06/03/2020 by Janis Hatch DO at OR [facility] Clip N/A: Colon 04/21/2022 [facility]-F-26-2 35-C-R / / [id number] documented as of this encounter Visit Diagnoses [...] ONCE PRN Other, Hypersensitivity Reaction, Starting on Mon11/09/21 at 1322, Until Mon11/10/21 at 1321, For 24 hours EPINEPHrine 1 MG/ML inj 0.3 mg 0.3 mg, Intramuscular, ONCE PRN Other, Hypersensitivity Reaction or Anaphylaxis, Starting on Mon11/09/21 at 1322, Until Mon11/10/21 at 1321, For 24 hours hEParin 100 UNIT/ML Lock Flush inj 500 Units 500 Units (5 mL), IV Lock, PRN Other, IV Flush, Starting on Mon11/09/21 at 1322, Until Mon11/10/21 at 1321, For 24 hours, Do not flush if lock, PICC, or central line not in place; IV infusing or unable to flush. Given 11/09/2021 3:07 PM EST 500 Units Hydrocortisone Na Succinate PF (Solu-Cortef) inj 100 mg 100 mg, IV Push, ONCE PRN Other, Hypersensitivity Reaction, Starting on Mon11/09/21 at 1322, Until Mon11/10/21 at 1321, For 24 hours NSS infusion 500 mL, Intravenous, at 50 mL/hr, CONTINUOUS, Starting on Mon11/09/21 at 1430, Until Mon11/10/21 at 0029 Start Infusion 11/09/2021 1:25 PM EST 500 mL 50 mL/hr sodium chloride 0.9 % flush/inj 10 mL 10 mL, IV Push, PRN Other, IV Flush, Starting on Mon11/09/21 at 1322, Until Mon11/10/21 at 1321, For 24 hours, Do not flush if lock, PICC, or central line not in place; IV infusing or unable to flush. Given 11/09/2021 3:07 PM EST 10 mL Inactive Administered Medications - up to 3 most recent administrations Medication Order MAR Action Action Date Dose Rate Site Iron Sucrose (Venofer) 300 mg in NSS 250 mL ivpb 300 mg, IV Piggyback, ONCE, 1 dose, On Mon11/09/21 at 1500, Administer over 90 Minutes Start Infusion 11/09/2021 1:25 PM EST 300 mg 166.67 mL/hr documented in this encounter Advance Directives Documents on File Type Date Recorded Patient Hotel Or Motel Cleaning Supervisor 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 WILL AND HEALTH CARE POA Power of Scarfer 04/29/2021 12:00 AM TOM R OF NETWORK ADMIN HEALTH CARE POA Advanced Directive 04/01/2021 1:14 [...] Syed Bustos Spouse Emergency Contact Care Teams Clearance Center Manager Relationship Specialty Start Date End Date Vanita Dunn MD [address] [place] [address] PCP - General Family Medicine 03/16/21 documented as of this encounter
--- OUTSIDE RECORDS SUMMARY | 2023-05-10 19:14 | External Medical Summary | Summary of Care ---
Author Name Unknown Organization [place] [address] Care Team Providers Care Board Attendant Name Role Phone Vanita Dunn MD Primary Care Provid er Reason for Visit * Reason Comments Audiogram Encounter Details Date Type Department Care Team Description 11/08/2021 Office Visit Audiology [facility] [address] [place] [address] Marie Urbano AuBerry [address] [facility] [place] [place] [phone] Bilateral sensorineural hearing loss* Allergies Active Allergy Reactions Severity Noted [...] 120 Vial 11 10/02/2019 Active nystatin (NYSTOP) 694640 UNIT/GM powder Apply topically to affected area [...] of Breath, Informant: Pharmacy, Reported on 02/04/2021 Dexcopygram G6 Computer Designer Device Use as directed. To test [...] Strip 3 10/29/2020 Active OneTouch Delica Plus [id number] TESTING once daily 100 Each 3 10/29/2020 [...] pain 01/24/2012 01/17/2017 Genetic Sleep Disorder Research Other*[id number] 05/13/2011 04/07/2016 Obstructive sleep apnea 01/18/2011 12/27/19 [...] as of this encounter Progress Notes * Fletcher Mcnair - 11/08/2021 3:51 PM EST Images from the original note were not included. AUDIOLOGIC EVALUATION Shaina Bustos 66 year old : 1955 11/08/21 Audiologic evaluation was completed on direct referral from Otolaryngology clinic. Standard audiometric testing 70639 ABSD supra-aural earphones Good reliability Right: Mild to severe high-frequency sensorineural hearing loss Left: Mild sensorineural hearing loss at 500 Hz and mild to severe high- frequency sensorineural hearing loss Speech recognition thresholds were consistent with hearing thresholds. Word recognition scores, obtained via recorded material were: right 100%, left 96% Fletcher Corbin, [facility]A Chain Link Fence Installer 11/08/2021 3:51 PM scan: audiogram documented in this encounter Plan of Treatment Upcoming Encounters Date Type Specialty Care Team Description 11/09/2021 Hem/Onc Treatment Hematology [place]cology [place], Chair 1 Hem Onc Scenery [address] [place] [address] 11/10/2021 Office Visit Pharmacy [facility] [address] [place] [address] 11/11/2021 Home Visit Family Medicine Kaylee Barakat, Community Health Tape Rules Printing Machine Operator [address] [place] [address] 11/12/2021 Office Visit Gynecology Obstetrics Concetta Khan MD [address] [place], [place] [phone] 11/15/2021 Laboratory Laboratory Processing [facility], [facility] Mobile Home Draw [address] [place] [address] 11/16/2021 Office Visit Family Medicine Vanita Dunn MD [address] [place] [address] 11/25/2021 Home Visit [facility] [place] July Poe RN [address] [place] [address] 11/26/2021 Hem/Onc Treatment Hematology [place]cology [place], Chair 4 Hem Onc Scenery [address] [place] [address] 11/29/2021 Laboratory Laboratory Processing [facility] Mobile Home Draw [address] [place] [address] 11/30/2021 Home Visit Family Medicine Kaylee Barakat, Community Health Tape Rules Printing Machine Operator [address] [place] [address] 12/13/2021 Laboratory Laboratory Processing [facility] Mobile Home Draw [address] [place] [address] 12/17/2021 Hem/Onc Treatment Hematology Oncology [place], Chair 2 Hem Onc Scenery [address] [place] [address] 12/22/2021 Office Visit Endocrinology Alberta Duque PA-C [address] [place] [address] 12/23/2021 Office Visit Gastroenterology Lyssa Stout CRNP [address] [place] [address] 12/27/2021 Laboratory Laboratory Processing [facility] Mobile Home Draw [address] [place] [address] 01/04/2022 Office Visit Hematology Oncology Tono Sanchez MD [address] [place] [address] 01/07/2022 Hem/Onc Treatment Hematology Oncology [place], Chair 1 Hem Onc Scenery [address] [place] [address] 01/10/2022 Laboratory Laboratory Processing [facility] Mobile Home Draw [address] [place] [address] 01/24/2022 Laboratory Laboratory Processing [facility] Mobile Home Draw [address] [place] [address] 01/28/2022 Hem/Onc Treatment Hematology [place], Chair 1 Hem Onc Scenery [address] [facility] [address] 02/07/2022 Laboratory Laboratory Processing [facility], [facility] Mobile Home Draw [address] [place] [address] 02/18/2022 Hem/Onc Treatment Hematology [place], Chair 1 Hem Onc Scenery [address] [facility] [address] 02/21/2022 Laboratory Laboratory Processing [facility], [facility] Mobile Home Draw [address] [place] [address] 03/07/2022 Laboratory Laboratory Processing [facility] Mobile Home Draw [address] [place] [address] 03/11/2022 Hem/Onc Treatment Hematology [place]cology [place], Chair 1 Hem Onc Scenery [address] [facility] [address] 03/24/2022 Office Visit Pulmonary Reynaldo Marquez MD [address] [facility] [phone] 04/01/2022 Hem/Onc Treatment Hematology [place]cology [place], Chair 1 Hem Onc Scenery [address] [place] [address] 04/22/2022 Hem/Onc Treatment Hematology [place]cology [place], Chair 1 Hem Onc Scenery [address] [facility] [address] 05/05/2022 Office Visit Cardiology Ajith, ZAK Quiñones 132 [facility] [place] [address] 06/24/2022 Office Visit Sleep Disorders Love Francisco, DO [address] [place] [address] Scheduled Procedures Name Priority Associated Diagnoses Date/Ti [...] of this encounter Implants Implanted Type Area Electrician'S Helper Device Identifier Shelf Expiration Date Model / Serial / Lot Microtech Sure Clip Implanted:Qty: 2 on 06/03/2020 by Janis Hatch DO at OR [facility] Clip N/A: Colon 04/21/2022 [facility]-F-26-2 35-C-R / / [id number] documented as of this encounter Visit Diagnoses Diagnosis Bilateral sensorineural hearing loss- Primary Sensorineural hearing loss, bilateral documented in this encounter Advance Directives Documents on File Type Date Recorded 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
--- OUTSIDE RECORDS SUMMARY | 2023-05-10 19:14 | External Medical Summary | Summary of Care ---
Author Name Unknown Organization [facility] [place] [address] Care Team Providers Care Application Security Architect Name Role Phone Vanita Dunn MD Primary Care Provid er Reason for Visit * Reason Onset Date Comments [facility]: Maintenance 11/10/2021 Encounter Details Date Type Department Care Team Description 11/10/2021 Telephone [facility] 132 [facility] [place] [address] [facility], Nurse [facility] [address] [facility] [place] [address] [facility]: Maintenance 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 documented as of this encounter (statuses as of 11/10/2021) Medications Medication Sig Dispensed Refills Start Date End Date Status albuterol sulfate (PROVENTIL) (2.5 MG/3ML) 0.083% nebulizer solutionIndications: Pulmonary vascular congestion Inhale 1 Vial via nebulizer every 6 hours as needed for Wheezing. 120 Vial 11 10/02/2019 Active nystatin (NYSTOP) 164268 UNIT/GM powder Apply topically to affected area [...] of Breath, Informant: Pharmacy, Reported on 02/04/2021 Dex3D Systems G6 Grain Oilseed Or Pasture Farm Manager Device Use as directed. To [...] Strip 3 10/29/2020 Active OneTouch Delica Plus [id number] TESTING once daily 100 Each 3 10/29/2020 [...] as of this encounter (statuses as of 11/10/2021) Active Problems Problem Noted Date Food insecurity 09/20/2021 Overview: Per [employer] Pharmacy Protocol Chronic diastolic (congestive) heart [...] as of this encounter (statuses as of 11/10/2021) Resolved Problems Problem Noted Date Resolved Date [...] pain 01/24/2012 01/17/2017 Genetic Sleep Disorder Research Other*[id number] 05/13/2011 04/07/2016 Obstructive sleep apnea 01/18/2011 12/27/19 [...] as of this encounter (statuses as of 11/10/2021) Immunizations Name Administration Dates Next Due COVID-19 [...] routed to AP and schedulers ARASH Rodriguez Manager Application Development [facility] at Home documented in this encounter Plan of Treatment Upcoming Encounters Date Type Specialty Care Team Description 11/12/2021 Office Visit Gynecology Obstetrics Concetta Khan MD [address] [place] [address] 11/15/2021 Laboratory Laboratory Processing [facility] Mobile Home Draw [address] [place] [address] 11/16/2021 Office Visit Family Medicine Vanita Dunn MD [address] [place] [address] 11/18/2021 Office Visit Pharmacy [facility] [address] [place] [address] 11/25/2021 [facility] Visit [facility] July Poe RN [address] [place] [address] 11/26/2021 Hem/Onc Treatment Hematology [place]cology [place], Chair 4 Hem Onc Scenery [address] [place] [address] 11/29/2021 Laboratory Laboratory Processing [facility], [facility] Mobile Home Draw [address] [place] [address] 11/30/2021 Home Visit Family Medicine Kaylee Braakat, Community Health Dental Officer [address] [place] [address] 12/10/2021 Home Visit Family Kaylee Becerril, Community Health Dental Officer [address] [place] [address] 12/13/2021 Laboratory Laboratory Processing c, [facility] Mobile Home Draw [address] [place] [address] 12/17/2021 Hem/Onc Treatment Hematology [place]cology [place], Chair 2 Hem Onc Scenery 200 [facility] [place] [facility] [place] [address] 12/22/2021 Office Visit Endocrinology Alberta Duque PA-C [address] [place] [address] 12/23/2021 Office Visit Gastroenterology Lyssa Stout CRNP [address] [place] [address] 12/27/2021 Laboratory Laboratory Processing [facility] Mobile Home Draw [address] [place] [address] 01/04/2022 Office Visit Hematology Oncology Tono Sanchez MD [address] [place] [address] 01/07/2022 Hem/Onc Treatment Hematology Oncology [place], Chair 1 Hem Onc Scenery [address] [facility] [place] [address] 01/10/2022 Laboratory Laboratory Processing [facility] Mobile Home Draw [address] [place] [address] 01/24/2022 Laboratory Laboratory Processing [facility] Mobile Home Draw [address] [place] [address] 01/28/2022 Hem/Onc Treatment Hematology Oncology [place], Chair 1 Hem Onc Scenery 200 [place] [address] 02/07/2022 Laboratory Laboratory Processing [facility] Mobile Home Draw [address] [place] [address] 02/18/2022 Hem/Onc Treatment Hematology [place]cology [place], Chair 1 Hem Onc Scenery [address] [place] [address] 02/21/2022 Laboratory Laboratory Processing [facility] Mobile Home Draw [address] [place] [address] 03/07/2022 Laboratory Laboratory Processing [facility] Mobile Home Draw [address] [place] [address] 03/11/2022 Hem/Onc Treatment Hematology [place], Chair 1 Hem Onc Scenery [address] [place] [address] 03/24/2022 Office Visit Pulmonary Reynaldo Marquez MD [address] [place] [address] 04/01/2022 Hem/Onc Treatment Hematology [place]cology [place], Chair 1 Hem Onc Scenery [address] [place] [address] 04/22/2022 Hem/Onc Treatment Hematology [place]cology [place], Chair 1 Hem Onc Scenery [address] [place] [address] 05/05/2022 Office Visit Cardiology Quyen Canseco CRNP 132 [facility] [place] [address] 06/24/2022 Office Visit Sleep Disorders Love Francisco DO [address] [place] [address] Scheduled Procedures Name Priority Associated Diagnoses Date/Ti [...] of this encounter Implants Implanted Type Area Clinical Support Manager Device Identifier Shelf Expiration Date Model / Serial / Lot Microtech Sure Clip Implanted:Qty: 2 on 06/03/2020 by Janis Hatch DO at OR [facility] Clip N/A: Colon 04/21/2022 [facility]-F-26-2 35-C-R / / [id number] documented as of this encounter Advance Directives Documents on File Type Date Recorded 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 04/29/2021 12:00 AM TOM R [facility] POA Advanced Directive 04/01/2021 1:14 PM Advanced [...] on File Name Relationship Healthcare Agent [facility] Communication Syed Bustos Spouse Emergency Contact Care Teams Application Security Architect Relationship Specialty Start Date End Date Vanita Dunn MD [address] [place] [address] PCP - General Family Medicine 03/16/21 documented as of this encounter
--- OUTSIDE RECORDS SUMMARY | 2023-05-10 19:15 | External Medical Summary | Summary of Care ---
Author Name Unknown Organization [facility] Address [place], [place] [address] Care Team Providers Care Bar Steward Name Role Phone Vanita Dunn MD Primary Care Provid er Reason for Visit * Reason Comments Nose Bleed R NOSTRIL Ear Problem BOTH EAR * Evaluate & Treat - Unlimited Visits (Within 10 days (routine)) - Closed Specialty Diagnoses / Procedures Referred By Evangelina jeter Referred To Contact Otolaryngology Diagnoses Right acute serous otitis media, recurrence not specified Dysfunction of both eustachian tubes Joselin Dawson CRNP [address] [place] [address] Referral ID Status Reason Start Date Expiration Date V isits Requested Visits Authorized [id number] Closed Specialty Services Required 10/06/2021 1 1 Encounter Details Date Type Department Care Team Description 11/08/2021 Office Visit Otolaryngology [facility] [address] [place] [address] [address] Dylon Moreno DO [address] [place] [address] Sensorineural hearing loss (SNHL) of both ears*; Recurrent epistaxis 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 documented as of this encounter (statuses as of 11/08/2021) Medications Medication Sig Dispensed Refills Start Date End Date Status albuterol sulfate (PROVENTIL) (2.5 MG/3ML) 0.083% nebulizer solutionIndications: Pulmonary vascular congestion Inhale 1 Vial via nebulizer every 6 hours as needed for Wheezing. 120 Vial 11 10/02/2019 Active nystatin (NYSTOP) 250946 UNIT/GM powder Apply topically to affected area [...] Pharmacy, Reported on 02/04/2021 Dexcom G6 Hand Stripper Device Use as directed. To test [...] Strip 3 10/29/2020 Active OneTouch Delica Plus [id number] TESTING once daily 100 Each 3 10/29/2020 [...] as of this encounter (statuses as of 11/08/2021) Active Problems Problem Noted Date Food insecurity [...] as of this encounter (statuses as of 11/08/2021) Resolved Problems Problem Noted Date Resolved Date [...] pain 01/24/2012 01/17/2017 Genetic Sleep Disorder Research Other*[id number] 05/13/2011 04/07/2016 Obstructive sleep apnea 01/18/2011 12/27/19 [...] as of this encounter (statuses as of 11/08/2021) Immunizations Name Administration Dates Next Due COVID-19 [...] as of this encounter Progress Notes * Dylon Moreno, - 11/08/2021 1:25 PM EST Images from the original note were not included. 11/08/2021 HISTORY OF PRESENT ILLNESS This 66 year old YO female is seen at the request of Vanita Dunn MD for the evaluation of ear issues. Patient and caregiver state that she has some intermittent ear pain. They also were treatinga dermatologic issue on the skin overlying the mastoid in the posterior aspect of the auricle. Theycaregiver states this was fungal in nature. Her symptoms started several months ago and are intermittent. Associated symptoms include bilateral hearing loss (patient notes difficulty with normal conversation). She denies bilateral otorrhea. No previous otologic surgery. No history of recurrent otitis media. Also having some intermittent right-sided epistaxis. She wears a CPAP machine. She does not use anyantibiotic ointment or [place] gel in the nose. Occasionally will use saline spray. Problem List Patient Active Problem List Diagnosis Code Venous insufficiency I87.2 Spinal stenosis of lumbar region without neurogenic claudication M48.061 Cerebral palsy ([facility]) G80.9 HTN, goal below 130/80 I10 NG (nonalcoholic steatohepatitis) K75.81 Venous stasis dermatitis of both lower extremities I87.2 DDD (degenerative disc disease), lumbar M51.36 Lymphedema I89.0 Type 2 diabetes mellitus with hemoglobin A1c goal of less than 8.0% ([facility]) E11.9 Vitamin D deficiency E55.9 Restrictive lung disease J98.4 Obesity, morbid (more than 100 lbs over ideal weight or BMI > 40) ([facility]) E66.01 Dyslipidemia E78.5 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 R39.81 Acquired hypothyroidism E03.9 Chronic pain syndrome G89.4 MEDICATION USE AGREEMENT [id number] Cirrhosis of liver ([facility]) K74.60 THAD on CPAP G47.33, Z99.89 Wheelchair dependent Z99.3 DM type 2 with diabetic peripheral neuropathy ([facility]) E11.42 Primary insomnia F51.01 Recurrent major depressive disorder, in partial remission ([facility]) F33.41 Impaired mobility and ADLs Z74.09, Z78.9 Gastroesophageal reflux disease K21.9 Fibromyalgia M79.7 Thrombocytopenia ([facility]) D69.6 Iron deficiency anemia due to chronic blood loss D50.0 Esophageal varices ([facility]) I85.00 Portal hypertensive gastropathy ([facility]) K76.6, K31.89 Chronic diastolic (congestive) heart failure ([facility]) I50.32 Food insecurity Z59.41 Past Medical History: Diagnosis Date Cerebral palsy ([facility]) 01/24/2012 Chronic constipation Chronic diastolic (congestive) heart failure ([facility]) 09/13/2021 Chronic hypoxemic respiratory failure ([facility]) 04/08/2019 Chronic pain 03/27/2012 Cirrhosis of liver ([facility]) 11/20/2017 DDD (degenerative disc disease), [...] of less than 7.0% ([facility]) 09/26/2013 ICD-10 update of inactive term Type 2 diabetes mellitus with hemoglobin A1c goal of less than 8.0% ([facility]) 09/26/2013 ICD-10 update of inactive term Past Surgical History: Procedure Laterality Date BONE DEBRIDEMENT, FIRST 20 CM2 Right 04/16/2020 DEBRIDEMENT SKIN SUBCUTANEOUS TISSUE MUSCLE AND BONE performed by Josh Vazquez MD at OR [facility] DELIVERY 04/20/1982 COLONOSCOPY 04/21/2009 repeat in 10 years COLONOSCOPY, DIAGNOSTIC (RECTUM) 10/04/2016 normal bx, repeat 10 yrs/[facility] COLONOSCOPY, DIAGNOSTIC (RECTUM) N/A 06/03/2020 internal hemorrhoids/biopsies show adenomatous polyps/recall 5 years/COLONOSCOPY FLEXIBLE PROXIMAL DIAGNOSTIC performed by Janis Hatch DO at OR [facility] COLONOSCOPY, DIAGNOSTIC (RECTUM) 03/17/2020 poor prep / [facility] DENTAL SURGERY PROCEDURE NEC wisdom teeth x 4 DILATION AND CURETTAGE (D&C) EGD, FLEXIBLE, DIAGNOSTIC 10/04/2016 gastritis/[facility] EGD, FLEXIBLE, DIAGNOSTIC 01/11/2018 eso varices, retained food, repeat 1 yr/[facility] EGD, FLEXIBLE, DIAGNOSTIC N/A 06/03/2020 severe erosive esophagitis/non-bleeding grade II esophageal varices/gastritis/biopsies show inflammatory changes/repeat 3-4 months/ESOPHAGOGASTRODUODENOSCOPY (EGD), FLEXIBLE, TRANSORAL, DIAGNOSTIC per formed by Janis Hatch DO at OR [facility] EGD, FLEXIBLE, DIAGNOSTIC 11/27/2019 eso varices, portal hypertensive gastropathy, gastritis / [facility] EGD, FLEXIBLE, DIAGNOSTIC N/A 08/05/2020 large amount of food in stomach/repeat 1.5 years/ESOPHAGOGASTRODUODENOSCOPY (EGD), FLEXIBLE, TRANSORAL, DIAGNOSTIC performed by Janis Hatch DO at OR [facility] EGD, FLEXIBLE, DIAGNOSTIC N/A 03/10/2021 ESOPHAGOGASTRODUODENOSCOPY (EGD), FLEXIBLE, TRANSORAL, DIAGNOSTIC performed by Kris Blankenship MD at ENDOSCOPY [facility] IR VENOUS ACCESS MEDIPORT 10/05/2020 PELVIS/HIP JOINT SURGERY NEC teenager aid in walking REPAIR/GRAFT ACHILLES TENDON age 40 aid in walking Medications Current Outpatient Medications Medication Sig Dispense Refill albuterol sulfate (PROVENTIL) (2.5 MG/3ML) 0.083% nebulizer solution Inhale 1 Vial via nebulizer every 6 hours as needed for Wheezing. 120 Vial 11 nystatin (NYSTOP) 891598 UNIT/GM powder Apply topically to affected area [...] of Breath.) 3 mL 10 Dexcom G6 Hand Stripper Device Use as directed. To test [...] daily 100 Strip 3 OneTouch Delica Plus [id number] TESTING once daily 100 Each 3 Nitroglycerin [...] No current facility-administered medications for this visit. Allergies Review of patient's allergies indicates: Allergen Reactions Adhesive Tape Itching Pcn [Penicillins] Rash Perflutren Protein A Microsph Definity-lower back pain Family History Family History Problem Relation Age of Onset Heart Disorder Father of [place] at age 61 Diabetes Father Heart Disorder Mother of [place] age 72 Heart Disorder Sister Mi at age 46 Hypertension Sister Cancer No significant family history Arthritis No significant family history Mental Disorder No significant family history Stroke No significant family history Social History Social History Tobacco Use Smoking status: Never Smoker Smokeless tobacco: Never Used Substance Use Topics Alcohol use: No Comment: rare Vaping/E-Cigarette Use Vaping/E-Cigarette Use Never User Vaping/E-Cigarette Substances Nicotine No Other No Flavoring No THC No Cannabidiol (CBD) No Vaping/E-Cigarette Devices Disposable No Pre-filled or Refillable Cartridge No Refillable Tank No Pre-filled Pod No Review of Systems Negative for constitutional, hepatic, epileptic, syncopal, musculo-skeletal, mental health, integumentary, hypertensive, lipid, arthritic or diabetic disorders (except as listed in the PMH and Problem List). Physical Examination: There were no vitals taken for this visit. PHYSICAL EXAM General: This is a healthy appearing female who appears her stated age. The patient is alert and appropriately verbally conversant without hoarseness. Face: The face was inspected and no cutaneous masses or lesions were visualized. There was no erythema or edema noted. Facial movement was symmetric without weakness. No skin lesions were detected. Eyes: Extra-ocular muscle function was intact. No nystagmus was observed. Pupils were equal. Cranial Nerves: Cranial nerves II, III, IV, and were noted to be intact via extra-ocular muscle movement testing. Cranial nerve VII noted to be intact and symmetric by facial movement. Nose: Examination of the nose revealed no masses, polyps, mucopus, or other lesion. The nasal septum was non-obstructing. The turbinates were without abnormality. Crusting and dryness of the caudal septum on the right. Oral Cavity: Examination of the oral cavity revealed no mass lesions nor infection. The palate was noted to be intact without evidence of clefting. The tongue exhibited normal mobility. Mucosa was moist without lesion. The lips were free of lesion. Gums were free of inflammation. Dentition: Unremarkable Oropharynx: The oral pharynx was free of mass lesion or mucosal abnormality. The palate was noted to be without lesion. The uvula was normal appearing. The tonsils were unremarkable. Ears: Examination of the ears revealed that the auricles were normally formed with no lesions. She has flaking dermatitis of the left posterior aspect of the auricle and skin overlying the mastoid. The external auditory canals were cleaned of any obstructing cerumen. The tympanic membranes were intact and freely mobile to pneumatoscopy. There are no significant retraction pockets. There is no inflammation visualized. No effusions are seen. Neck: Visualization and palpation of the neck revealed no mass lesions, no thyromegaly or thyroid masses. No skin lesions or inflammatory processes were detected. The cervical musculature was normal to palpation. Lymphatics (cervical): There were no palpable lymph nodes in the posterior triangle, submandibular triangle, jugulodigastric region, or central neck. Lungs: Breathing quietly. No use of accessory muscles. Heart: Regular rate. No JVD. Assessment: 66-year-old female with recurrent epistaxis, dry a crusted caudal septal mucosa who also has dermatitis of the skin of the posterior aspect of the left auricle, bilateral mild to moderate SNHL Plan: - patient reassured her otologic examination of the tympanic membrane and middle ear was normal today. - will prescribe mupirocin ointment for the right-side of the nose to treat her epistaxis - recommend her family doctor consider dermatology referral for the fairly severe dermatitis of theskin of the left posterior aspect of the auricle and mastoid I spent a total of 30 minutes on the date of service in preparation, delivery, and documentation ofthe care provided to the above patient, excluding any time spent on the performance of any procedures or separately billable services. Dylon Moreno DO, FACS [facility] [place], [place] 11/08/2021 2:05 PM documented in this encounter Nursing Notes * Julieth Banerjee CMA - 11/08/2021 1:19 PM EST Shaina Bustos is a 66 year old female who presents today for ear problems. Patient reports Which ear: L EAR caregiver state that pt used to have fungus on the L ear. Caregiver state that theR ear is what is hurting the most How long: ONGOING SINCE LAST YEAR Pain: YES ONCE IN A WHILE Pressure: YES SOMETIMES Ringing: NO Drainage: NO Any treatment: EAR DROPS, CAREGIVER STATE THAT THERE IS WAX IN THE R EAR Hearing loss: NO Any outside hearing aids/hearing test:NO Any history of ear surgeries: NO Last nose bleed: YESTERDAY 11/07/21 Lasting: ABOUT A MINUTE How often: ON AND OFF Which nostril: R SIDE Current treatment: NO Hx of cauterization: NO On Asprin/Anitcoagulant: NO ER Visit: NO Hx of blood transfusion due to nose bleed: NO, BUT CAREGIVER STATE THAT THEY WILL BE GIVEN PT IV IRON TRANSFUSION 11/09/21 Bleeding Disorders: CAREGIVER STATE PT HAS BEEN BLEEDING VIRGINAL FOR THE LAST 3 MONTHS. documented in this encounter Plan of Treatment Upcoming Encounters Date Type Specialty Care Team Description 11/09/2021 Hem/Onc Treatment Hematology Oncology [place], Chair 1 Hem On[address] [place] [address] 11/10/2021 Office Visit Pharmacy [facility] [address] [place] [address] 11/11/2021 Home Visit Family Medicine Kaylee Barakat, Community Health Tooling Manager [address] [place] [address] 11/12/2021 Office Visit Gynecology Obstetrics Concetta Khan MD [address] [place] [address] 11/15/2021 Laboratory Laboratory Processing [facility], [facility] Mobile Home Draw [address] [place] [address] 11/16/2021 Office Visit Family Medicine Vanita Dunn MD [address] [place] [address] 11/25/2021 Home Visit [facility] [place] July Poe RN [address] [facility] [place] [address] 11/26/2021 Hem/Onc Treatment Hematology Oncology [place], Chair 4 Hem Onc Scenery [address] [place] [facility] [place] [address] 11/29/2021 Laboratory Laboratory Processing [facility] Mobile Home Draw [address] [place] [address] 11/30/2021 Home Visit Family Medicine Kaylee Barakat, Community Health Tooling Manager [address] [place] [address] 12/13/2021 Laboratory Laboratory Processing [facility] Mobile Home Draw [address] [place] [address] 12/17/2021 Hem/Onc Treatment Hematology Oncology [place], Chair 2 Hem Onc [address] [place] [address] 12/22/2021 Office Visit Endocrinology Alberta Duque PA-C [address] [place] [address] 12/23/2021 Office Visit Gastroenterology Lyssa Stout CRNP [address] [place] [address] 12/27/2021 Laboratory Laboratory Processing c, [facility] Mobile Home Draw [address] [place] [address] 01/04/2022 Office Visit Hematology Oncology Tono Sanchez MD [address] [place] [address] 01/07/2022 Hem/Onc Treatment Hematology Oncology [place], Chair 1 Hem Onc Scenery [address] [place] [facility] [place] [address] 01/10/2022 Laboratory Laboratory Processing [facility] Mobile Home Draw [address] [place] [address] 01/24/2022 Laboratory Laboratory Processing [facility], [facility] Mobile Home Draw [address] [place] [address] 01/28/2022 Hem/Onc Treatment Hematology Oncology [place], Chair 1 Hem Onc Scenery [address] [place] [address] 02/07/2022 Laboratory Laboratory Processing [facility], [facility] Mobile Home Draw [address] [place] [address] 02/18/2022 Hem/Onc Treatment Hematology Oncology [place], Chair 1 Hem Onc Scenery [address] [place] [address] 02/21/2022 Laboratory Laboratory Processing [facility], [facility] Mobile Home Draw [address] [place] [address] 03/07/2022 Laboratory Laboratory Processing [facility], [facility] Mobile Home Draw [address] [place] [address] 03/11/2022 Hem/Onc Treatment Hematology Oncology [place], Chair 1 Hem Onc Scenery [address] [place] [address] 03/24/2022 Office Visit Pulmonary Reynaldo Marquez MD [address] [place] [address] [address] 04/01/2022 Hem/Onc Treatment Hematology Oncology [place], Chair 1 Hem Onc Scenery [address] [place] [address] 04/22/2022 Hem/Onc Treatment Hematology Oncology [place], Chair 1 Hem Onc Sc[address]ery [address] [place] [address] 05/05/2022 Office Visit Cardiology Quyen Canseco CRNP [address] [place] [address] 06/24/2022 Office Visit Sleep Disorders Love FranciscoareDO [place] [address] [place] [address] [address] Scheduled Procedures Name Priority Associated Diagnoses Date/Ti [...] of this encounter Implants Implanted Type Area Garment Finisher Device Identifier Shelf Expiration Date Model / Serial / Lot Microtech Sure Clip Implanted:Qty: 2 on 06/03/2020 by Janis Hatch DO at OR [facility] Clip N/A: Colon 04/21/2022 [facility]-F-26-2 35-C-R / / [id number] documented as of this encounter Visit Diagnoses Diagnosis Sensorineural hearing loss (SNHL) of both ears- Primary Recurrent epistaxis Epistaxis documented in this encounter Advance Directives Documents on File Type Date Recorded Patient Graphic Manager 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 WILL AND HEALTH CARE POA Power of Meter Shop Supervisor 04/29/2021 12:00 AM TOM R OF [facility] POA Advanced Directive 04/01/2021 [...] Bustos Spouse Emergency Contact Care Teams Bar Steward Relationship Specialty Start Date End Date Vanita Dunn MD [address] [place] [address] [address] PCP - General Family Medicine 03/16/21 documented as of this encounter
--- OUTSIDE RECORDS SUMMARY | 2023-05-10 19:15 | External Medical Summary | Summary of Care ---
Author Name Unknown Organization [place] [address] Care Team Providers Care Slps Name Role Phone Vanita Dunn MD Primary Care Provid er Encounter Details Date Type Department Care Team Description 11/08/2021 Orders Only Audiology, [place] [address] [place] [address] Marie Urbano Au.D. [address] [place], [place] [id number] Allergies Active Allergy Reactions Severity Noted Date [...] 120 Vial 11 10/02/2019 Active nystatin (NYSTOP) 847880 UNIT/GM powder Apply topically to affected area [...] Informant: Pharmacy, Reported on 02/04/2021 Dexcom G6 Bulb Inspector Device Use as directed. To test [...] Strip 3 10/29/2020 Active OneTouch Delica Plus [id number] TESTING once daily 100 Each 3 10/29/2020 [...] Noted Date Food insecurity 09/20/2021 Overview: Per [facility] Protocol Chronic diastolic (congestive) heart [...] pain 01/24/2012 01/17/2017 Genetic Sleep Disorder Research Other*[id number] 05/13/2011 04/07/2016 Obstructive sleep apnea 01/18/2011 12/27/19 [...] Chair 1 Hem Onc Scenery [address] [place] [address] 11/10/2021 Office Visit Pharmacy [facility] [address] [place] [address] 11/11/2021 Home Visit Family Medicine Kaylee Barakat, Community Health Inspector Process [address] [place] [address] 11/12/2021 Office Visit Gynecology Obstetrics Concetta Khan MD [address] [place] [address] 11/15/2021 Laboratory Laboratory Processing [facility], [facility] Mobile Home Draw [address] [place] [address] 11/16/2021 Office Visit Family Medicine Vanita Dunn MD [address] [place] [address] 11/25/2021 Home Visit [facility] July Poe RN [address] [place] [address] 11/26/2021 Hem/Onc Treatment Hematology Oncology [place], Chair 4 Hem Onc Scenery [address] [place] [facility] [place] [address] 11/29/2021 Laboratory Laboratory Processing [facility], [facility] Mobile Home Draw [address] [place] [address] 11/30/2021 Home Visit Family Medicine Kaylee Barakat, Community Health Inspector Process [address] [place] [address] 12/13/2021 Laboratory Laboratory Processing [facility], [facility] Mobile Home Draw [address] [place] [address] 12/17/2021 Hem/Onc Treatment Hematology Oncology [place], Chair 2 Hem Onc Scenery [address] [facility] [place] [address] 12/22/2021 Office Visit Endocrinology Alberta Duque PA-C [address] [place] [address] 12/23/2021 Office Visit Gastroenterology Lyssa Stout CRNP [address] [place] [address] 12/27/2021 Laboratory Laboratory Processing [facility] Mobile Home Draw [address] [place] [address] 01/04/2022 Office Visit Hematology Oncology Tono Sanchez MD [address] [place] [address] 01/07/2022 Hem/Onc Treatment Hematology Oncology [place], Chair 1 Hem On[address] [place] [address] 01/10/2022 Laboratory Laboratory Processing [facility] Mobile Home Draw [address] [place] [address] 01/24/2022 Laboratory Laboratory Processing [facility] Mobile Home Draw [address] [place] [address] 01/28/2022 Hem/Onc Treatment Hematology Oncology [place], Chair 1 Hem Onc Scenery [address] [facility] [place] [address] 02/07/2022 Laboratory Laboratory Processing [facility] Mobile Home Draw [address] [place] [address] 02/18/2022 Hem/Onc Treatment Hematology Oncology [place], Chair 1 [address] [place] [address] 02/21/2022 Laboratory Laboratory Processing [facility] Mobile Home Draw [address] [place] [address] 03/07/2022 Laboratory Laboratory Processing [facility] Mobile Home Draw [address] [place] [address] 03/11/2022 Hem/Onc Treatment Hematology Oncology [place], Chair 1 Hem Onc Sc[address] [place], [place] [address] 03/24/2022 Office Visit Pulmonary Reynaldo Marquez MD [address] [place] [address] [id number] 04/01/2022 Hem/Onc Treatment Hematology Oncology [place], Chair 1 Hem Onc Scen[address] [place] [address] 04/22/2022 Hem/Onc Treatment Hematology Oncology [place], Chair 1 Hem [address] [place] [address] 05/05/2022 Office Visit Cardiology Quyen Canseco CRNP [address] [facility] [place] [address] 06/24/2022 Office Visit Sleep Disorders Love Francisco DO [address] [facility] [place] [address] Scheduled Procedures Name Priority Associated Diagnoses Date/Ti [...] this encounter Implants Implanted Type Area Metal Handler Device Identifier Shelf Expiration Date Model / Serial / Lot Microtech Sure Clip Implanted:Qty: 2 on 06/03/2020 by Janis Hatch DO at OR [facility] Clip N/A: Colon 04/21/2022 [facility]-F-26-2 35-C-R / / [id number] documented as of this encounter Procedures Procedure Name Priority Date/Time Associated Diagnosis Comments AUDIOMETRIC RESULT 11/08/2021 documented in this encounter Results * AUDIOMETRIC RESULT (11/08/2021) Specimen Narrative documented in this encounter Advance Directives Documents on File Type Date Recorded Patient Conduit Helper 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 WILL AND HEALTH CARE POA Power of Curing Room Supervisor 04/29/2021 12:00 AM TOM [facility] [...] Agents on File Name Relationship Healthcare Agent [facility] p Communication Syed Busots Spouse Emergency Contact Care Teams Slps Relationship Specialty Start Date End Date Vanita Dunn MD [address] [place] [address] PCP - General Family Medicine 03/16/21 documented as of this encounter
--- OUTSIDE RECORDS SUMMARY | 2023-05-10 19:16 | External Medical Summary | Summary of Care ---
Author Name Unknown Organization [place] [address] Care Team Providers Care Home Energy Consultant Name Role Phone Vanita Dunn MD Primary Care Provid er Reason for Visit * Reason Onset Date Comments Appointment 11/05/2021 Encounter Details Date Type Department Care Team Description 11/05/2021 Telephone Hematology/Oncology [facility] [address] [place] [address] Tono Sanchez MD [address] [place] [address] Appointment 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 documented as of this encounter (statuses as of 11/05/2021) Medications Medication Sig Dispensed Refills Start Date End Date Status albuterol sulfate (PROVENTIL) (2.5 MG/3ML) 0.083% nebulizer solutionIndications: Pulmonary vascular congestion Inhale 1 Vial via nebulizer every 6 hours as needed for Wheezing. 120 Vial 11 10/02/2019 Active nystatin (NYSTOP) 993063 UNIT/GM powder Apply topically to affected area [...] of Breath, Informant: Pharmacy, Reported on 02/04/2021 Planex G6 Cost Reduction Engineer Device Use as directed. To test [...] Strip 3 10/29/2020 Active OneTouch Delica Plus Imatcf48M TESTING once daily 100 Each 3 10/29/2020 [...] TWICE DAILY 180 Tablet 1 10/26/2021 Active documented as of this encounter (statuses as of 11/05/2021) Active Problems Problem Noted Date Food insecurity [...] as of this encounter (statuses as of 11/05/2021) Resolved Problems Problem Noted Date Resolved Date [...] pain 01/24/2012 01/17/2017 Genetic Sleep Disorder Research Other*[id number] 05/13/2011 04/07/2016 Obstructive sleep apnea 01/18/2011 12/27/19 [...] as of this encounter (statuses as of 11/05/2021) Immunizations Name Administration Dates Next Due COVID-19 [...] Miscellaneous Notes * Telephone Encounter - THAD Hickman - 11/05/2021 12:16 PM EST Called and spoke to patient. Patient wanted to cancel appt for today due to weather. Patient has been rescheduled for Venofer infusion on 11/09 @ 1pm * Telephone Encounter - Lilian Jara CMA - 11/05/2021 11:36 AM EST Patient called left message on voicemail to contact her back at [phone] documented in this encounter Plan of Treatment Upcoming Encounters Date Type Specialty Care Team Description 11/08/2021 Office Visit Otolaryngology Dylon Moreno DO [address] [place] [address] 11/09/2021 Hem/Onc Treatment Hematology Oncology [place], Chair 1 Hem Onc Scenery [address] [place] [address] 11/10/2021 Office Visit [facility] [address] [place] [address] 11/11/2021 Home Visit Family Medicine Kaylee Barakat, Community Health Ammunition Supervisor [address] [place] [address] 11/12/2021 Office Visit Gynecology Obstetrics Concetta Khan MD [address] [place] [address] 11/15/2021 Laboratory Laboratory Processing [facility], Gm Mobile Home Draw [address] [place] [address] 11/16/2021 Office Visit Family Medicine Vanita Dunn MD [address] [place] [address] 11/25/2021 Home Visit [facility] July Poe, UMA 132 [place] [address] 11/26/2021 Hem/Onc Treatment Hematology Oncology [place], Chair 4 Hem Onc Scenery [address] [place] [address] 11/29/2021 Laboratory Laboratory Processing [facility], [facility] Mobile Home Draw [address] [place] [address] 11/30/2021 Home Visit Family Medicine Kaylee Barakat, Community Health Ammunition Supervisor [address] [place] [address] 12/13/2021 Laboratory Laboratory Processing [facility], [facility] Mobile Home Draw [address] [place] [address] 12/17/2021 Hem/Onc Treatment Hematology Oncology [place], Chair 2 Hem Onc [facility] [address] [place] [address] 12/22/2021 Office Visit Endocrinology Alberta Duque PA-C [address] [place] [address] 12/23/2021 Office Visit Gastroenterology Lyssa Stout CRNP [address] [place] [address] 12/27/2021 Laboratory Laboratory Processing [facility], [facility] Mobile Home Draw [address] [place] [address] 01/04/2022 Office Visit Hematology Oncology Tono Sanchez MD [address] [place] [address] 01/07/2022 Hem/Onc Treatment Hematology Oncology [place], Chair 1 Hem Onc Scene [address] [place] [address] 01/10/2022 Laboratory Laboratory Processing [facility], [facility] Mobile Home Draw [address] [place] [address] 01/24/2022 Laboratory Laboratory Processing [facility], [facility] Mobile Home Draw [address] [place] [address] 01/28/2022 Hem/Onc Treatment Hematology [place]cology [place], Chair 1 Hem Onc Scenery [address] [place] [address] 02/07/2022 Laboratory Laboratory Processing [facility], [facility] Mobile Home Draw [address] [place] [address] 02/18/2022 Hem/Onc Treatment Hematology Oncology [place], Chair 1 Hem Onc Scenery [address] [place] [address] 02/21/2022 Laboratory Laboratory Processing [facility] Mobile Home Draw [address] [place] [address] 03/07/2022 Laboratory Laboratory Processing [facility] Mobile Home Draw [address] [place] [address] 03/11/2022 Hem/Onc Treatment Hematology [place]cology [place], Chair 1 Hem Onc Scenery [address] [place] [address] 03/24/2022 Office Visit Pulmonary Reynaldo Marquez MD [address] [place] [address] 04/01/2022 Hem/Onc Treatment Hematology [place]cology [place], Chair 1 Hem Onc Scenery [address] [place], [place] [address] 04/22/2022 Hem/Onc Treatment Hematology [place]cology [place], Chair 1 Hem Onc Scenery [address] [place], [place] [address] 05/05/2022 Office Visit Cardiology Quyen Canseco CRNP 132 [facility] [place] [address] 06/24/2022 Office Visit Sleep Disorders Love Francisco DO 132 [facility] [place] [address] Scheduled Procedures Name Priority Associated Diagnoses Date/Ti [...] of this encounter Implants Implanted Type Area Guide Plant Device Identifier Shelf Expiration Date Model / Serial / Lot Microtech Sure Clip Implanted:Qty: 2 on 06/03/2020 by Janis Hatch DO at OR [facility] Clip N/A: Colon 04/21/2022 [facility]-F-26-2 35-C-R / / [id number] documented as of this encounter Advance Directives Documents on File Type Date Recorded Patient Diamond Mounter 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 WILL AND HEALTH CARE POA Power of Coconut Candy Maker 04/29/2021 12:00 AM TOM R OF [facility] CARE POA Advanced Directive 04/01/2021 1:14 [...] on File Name Relationship Healthcare Agent [facility] Syed Bustos Spouse Emergency Contact Care Teams Home Energy Consultant Relationship Specialty Start Date End Date Vanita Dunn MD [address] [place] [address] PCP - General Family Medicine 03/16/21 documented as of this encounter
--- OUTSIDE RECORDS SUMMARY | 2023-05-10 19:16 | External Medical Summary | Summary of Care ---
Author Name Unknown Organization [place] [address] Care Team Providers Care Professional Employer Consultant Name Role Phone Kojo Dunn MD Primary Care Provid er Reason for Referral * Medication Prior Authorization - Closed Specialty Diagnoses / Procedures Referred By Evangelina jeter Referred To Contact Diagnoses Acute pain of left shoulder Kojo Dunn MD [address] [place] [address] Referral ID Status Reason Start Date Expiration Date Visits Re quested Visits Authorized [id number] Closed 1 1 Reason for Visit * Reason Comments eRx-Medication Refill Encounter Details Date Type Department Care Team Description 09/29/2021 Refill Family Practice [facility] [address] [place] [address] Jose Herring MD 132 [facility] [place] [address] Acute pain of left shoulder 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 documented as of this encounter (statuses as of 11/05/2021) Medications Medication Sig Dispensed Refills Start Date End Date Status albuterol sulfate (PROVENTIL) (2.5 MG/3ML) 0.083% nebulizer solutionIndication s:Pulmonary vascular congestion Inhale 1 Vial via nebulizer every 6 hours as needed for Wheezing. 120 Vial 11 0 Active nystatin (NYSTOP) 446379 UNIT/GM powder Apply topically to affected area 3 times a day. 60 g 1 0 Active Additional Information Patient not taking. Informant: Pharmacy, Reported on 11/04/2021 Albuterol Sulfate (ALBUTEROL HFA) 108 (90 BASE) MCG/ACT inhalerIndications :Intermittent asthma with reliever use up to twice per week without complication Inhale 2 Puffs by mouth every 4 hours as needed for Cough or Wheezing. With spacer 16 g 1 0 Active Ipratropium-Albute rol 0.5-2.5 (3) MG/3ML Inhalation Solution (DUONEB)Indication s:Moderate persistent asthma with acute exacerbation Inhale 3 mL via nebulizer 4 times a day. 3 mL 10 0 Active Additional Information Patient taking differently: 3 mL Nebulizer QID PRN, Shortness of Breath, Informant: Pharmacy, Reported on 02/04/2021 Dexcom G6 Mine Inspector Federal Device Use as directed. To test blood sugars 4 times a day Dx E11.9 1 Each 0 1 Active Dexcom G6 Transmitter Use as directed. To test blood sugars 4 times a day. Change every 90 days. Dx E11.9 1 Each 3 1 Active Lidocaine-Prilocai ne 2.5-2.5 % External Cream (Emla)Indications: Iron deficiency anemia due to chronic blood loss,Pancytopenia (HCC) Apply topically to affected area as needed for Other (for port). APPLY TO SKIN OVER MEDIPORT & COVER 1HR PRIOR TO ACCESSING. 30 g 3 1 Active OneTouch Verio In Vitro Strip (Glucose Blood) TESTING once daily 100 Strip 3 1 Active OneTouch Delica Plus Nykusg85G TESTING once daily 100 Each 3 1 [...] once weekly 6 mL 3 1 Active Nadolol 40 MG Oral Tablet (Corgard)Indicatio ns:HTN, goal below 140/90 Take 1 tablet daily. 90 Tab 1 1 Active Spironolactone 25 MG Oral Tablet [...] 1 Active Gabapentin 300 MG Oral Capsule (Neurontin)Indicat [...] 10 MEQ Oral Tablet Extended ReleaseIndications :Hypokalemia TAKE 1 TABLET BY MOUTH ONCE DAILY [...] Active Benzonatate 100 MG Oral Capsule (Tessalon Perles)Indications :Bronchitis, complicated Take 1 Capsule by mouth 3 times a day as needed for Cough. 30 Capsule 1 2 Active Budesonide-Formote rol Fumarate 160-4.5 MCG/ACT Inhalation [...] SEVERE PAIN 20 Tablet 0 2 Active Oxybutynin Chloride 5 MG Oral Tablet (Ditropan) TAKE 1 TABLET BY MOUTH TWICE DAILY 180 Tab 1 1 022 Discontinued Ibuprofen 800 MG Oral Tablet (Motrin)Indication s:Costochondral chest pain Take 1 Tab by mouth daily as needed for Pain, Severe. with food for pain 30 Tab 3 1 022 Discontinued(Phan winters preference/disc ontinuation) traMADol HCl 50 MG Oral Tablet (Ultram)Indication s:Acute pain of left shoulder Take 1 Tablet by mouth 2 times a day as needed for Pain, Severe. 20 Tablet 0 2 022 Discontinued predniSONE 20 MG Oral Tablet (Deltasone)Indicat ions:Moderate persistent asthma with exacerbation Take 2 Tablets by mouth daily for 5 days. 10 Tablet 0 2 022 documented as of this encounter (statuses as [...] pain 01/24/2012 01/17/2017 Genetic Sleep Disorder Research Other*[id number] 05/13/2011 04/07/2016 Obstructive sleep apnea 01/18/2011 12/27/19 [...] drink = 0.6 oz pur e alcohol) Food Insecurity Answer Date Recorded Within the [...] Telephone Encounter - Kojo Dunn MD - 11/05/2021 8:12 AM EST Signed Prescriptions: Disp Refills traMADol HCl 50 MG Oral Tablet (Ultram) 20 Tab*0 Sig: TAKE 1 TABLET BY MOUTH TWICE DAILY NEEDED FOR SEVERE PAIN Authorizing Provider: KOJO DUNN * Telephone Encounter - Francine Perera, formerly [facility] - 09/30/2021 10:34 AM EST Pending Prescriptions: Disp Refills traMADol HCl 50 MG Oral Tablet [Pharmacy M*20 Tab*0 Sig: TAKE 1 TABLET BY MOUTH TWICE DAILY NEEDED FOR SEVERE PAIN * Telephone Encounter - Francine Perera, formerly [facility] - 09/30/2021 10:34 AM EST Pending Prescriptions: Disp Refills traMADol HCl 50 MG Oral Tablet (Ultram) [*20 Tab*0 Sig: TAKE 1 TABLET BY MOUTH TWICE DAILY NEEDED FOR SEVERE PAIN * Telephone Encounter - Francine Perera, formerly [facility] - 09/30/2021 10:33 AM EST I have reviewed the patients controlled substance dispensing history in the Prescription Drug Monitoring Program in compliance with the [facility] regulations before prescribing a controlled substance. PDMP checked on 09/30/2021. Pending Prescriptions: Disp Refills traMADol HCl 50 MG Oral Tablet (Ultram) [*20 Tab*0 Sig: TAKE 1 TABLET BY MOUTH TWICE DAILY NEEDED FOR SEVERE PAIN Last Visit: 09/14/2021 Next Visit: Visit date not found Date medication was last filled: 09/14/21 Date medication is due for refill: 09/20/21 Pharmacy: [facility] [address] [place] [address] Is this request for a controlled substance?Yes and Urine Drug Screen not completed Toxicology results: No results found. However, due to the size of the patient record, not all encounters were searched.Please check Results Review for a complete set of results. Please approve if appropriate. Thanks, Francine Perera Clinical Pharmacist Telepharmlegacy health [phone] 09/30/2021, 10:33 AM * Telephone Encounter - Jarett Kaiser, manhole stripper - 09/29/2021 5:19 PM EST Script may need a Pre Auth. Not sure. Pending Prescriptions: Disp Refills traMADol HCl 50 MG Oral Tablet (Ultram) [*20 Tab*0 Sig: TAKE 1 TABLET BY MOUTH TWICE DAILY NEEDED FOR SEVERE PAIN Last Visit: 09/14/2021 Next Visit: Next Office Visit: No Future Appointments If no future appointments scheduled, and last appointment is greater than a year ago, please schedule patient for a follow-up appointment Last date the medication was ordered: 09/14/2021 Pharmacy: [facility] # [address] [place] [address] Is this request for a controlled substance?Yes and Urine Drug Screen not completed Urine Drug Screen:No results found. However, due [...] Encounters Date Type Specialty Care Team Description 11/05/2021 Hem/Onc Treatment Hematology Oncology [place], Chair 11 Hem Onc Scenery [address] [place] [address] 11/08/2021 Office Visit Otolaryngology Dylon Moreno DO [address] [place] [address] 11/10/2021 Office Visit Pharmacy [address] [id number] 11/11/2021 Home Visit Family Medicine Kaylee Barakat, Community Health Tinsmith Apprentice [address] [place] [address] 11/12/2021 Office Visit Gynecology Obstetrics Concetta Khan MD [address] [facility] [place] [address] 11/15/2021 Laboratory Laboratory Processing [facility], [facility] Mobile Home Draw [address] [place] [address] 11/16/2021 Office Visit Family Medicine Kojo Dunn MD [address] [place] [address] 11/25/2021 Home Visit [facility] July Poe, RN [address] [place] [address] 11/26/2021 Hem/Onc Treatment Hematology Oncology [place], Chair 4 Hem Onc Scenery [address] [place] [facility] [place] [address] 11/29/2021 Laboratory Laboratory Processing [facility], [facility] Mobile Home Draw [address] [place] [address] 11/30/2021 Home Visit Family Medicine Kaylee Barakat, Community Health Tinsmith Apprentice [address] [place] [address] 12/13/2021 Laboratory Laboratory Processing [facility], [facility] Mobile Home Draw [address] [place] [address] 12/17/2021 Hem/Onc Treatment Hematology Oncology [place], Chair 2 Hem Onc Scenery [address] [place] [facility] [place] [address] 12/22/2021 Office Visit Endocrinology Alberta Duque PA-C [address] [place] [address] 12/23/2021 Office Visit Gastroenterology Lyssa Stout CRNP 132 [place] [address] 12/27/2021 Laboratory Laboratory Processing [facility], l Mobile Home Draw [address] [place] [address] 01/04/2022 Office Visit Hematology Oncology Tono Sacnhez MD [address] [place] [address] 01/07/2022 Hem/Onc Treatment Hematology Oncology [place], Chair 1 Hem Onc Scenery [address] [place] [address] 01/10/2022 Laboratory Laboratory Processing [facility], [facility] Mobile Home Draw [address] [place] [address] 01/24/2022 Laboratory Laboratory Processing [facility], [facility] Mobile Home Draw [address] [place] [address] 01/28/2022 Hem/Onc Treatment Hematology Oncology [place], Chair 1 Hem Onc Scenery [address] [place] [address] 02/07/2022 Laboratory Laboratory Processing [facility], [facility] Mobile Home Draw [address] [place] [address] 02/18/2022 Hem/Onc Treatment Hematology Oncology [place], Chair 1 Hem Onc Scenery [address] [facility], [place] [address] 02/21/2022 Laboratory Laboratory Processing [facility], [facility] Mobile Home Draw [address] [place] [address] 03/07/2022 Laboratory Laboratory Processing [facility], [facility] Mobile Home Draw [address] [place] [address] 03/11/2022 Hem/Onc Treatment Hematology Oncology [place], Chair 1 Hem Onc Scenery [address] [place] [address] 03/24/2022 Office Visit Pulmonary Reynaldo Marquez MD [address] [place] [address] 04/01/2022 Hem/Onc Treatment Hematology Oncology [place], Chair 1 Hem Onc Scenery [address] [place] [address] 04/22/2022 Hem/Onc Treatment Hematology Oncology [place], Chair 1 Hem Onc Scenery [address] [place] [address] 05/05/2022 Office Visit Cardiology Quyen Canseco CRNP 132 [facility] [place] [address] 06/24/2022 Office Visit Sleep Disorders Love Francisco DO 132 [facility] [place] [address] Scheduled Procedures Name Priority Associated Diagnoses Date/Ti [...] of this encounter Implants Implanted Type Area Radiographer Device Identifier Shelf Expiration Date Model / Serial / Lot Microtech Sure Clip Implanted:Qty: 2 on 06/03/2020 by Janis Hatch DO at OR [facility] Clip N/A: Colon 04/21/2022 [facility]-F-26-2 35-C-R / / [id number] documented as of this encounter Visit Diagnoses Diagnosis Acute pain of left shoulder documented in this encounter Advance Directives Documents on File Type Date Recorded Patient Measurement Superintendent 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 WILL AND HEALTH CARE POA Power of Training Consultant 04/29/2021 12:00 AM TOM R OF [employer] EXECUTION LEADER HEALTH CARE POA Advanced Directive 04/01/2021 1:14 [...] Syed Bustos Spouse Emergency Contact Care Teams Professional Employer Consultant Relationship Specialty Start Date End Date Kojo Dunn MD [address] [place] [address] PCP - General Family Medicine 03/16/21 documented as of this encounter
--- OUTSIDE RECORDS SUMMARY | 2023-05-10 19:16 | External Medical Summary | Summary of Care ---
Author Name Unknown Organization [place] [address] Care Team Providers Care Supervisor Photoengraving Name Role Phone Vanita Dunn MD Primary Care Provid er Reason for Visit * Reason Onset Date Comments Appointment 11/05/2021 Encounter Details Date Type Department Care Team Description 11/05/2021 Telephone Hematology/Oncology [facility] [address] [place] [address] Tono Sanchez MD [address] [place] [address] Appointment Allergies Active Allergy Reactions Severity Noted [...] 120 Vial 11 10/02/2019 Active nystatin (NYSTOP) 757790 UNIT/GM powder Apply topically to affected area [...] of Breath, Informant: Pharmacy, Reported on 02/04/2021 Glints G6 Oxygen Plant Operator Device Use as directed. To [...] Strip 3 10/29/2020 Active OneTouch Delica Plus Ventyi27S TESTING once daily 100 Each 3 10/29/2020 [...] pain 01/24/2012 01/17/2017 Genetic Sleep Disorder Research Other*[id number] 05/13/2011 04/07/2016 Obstructive sleep apnea 01/18/2011 12/27/19 [...] encounter Miscellaneous Notes * Telephone Encounter - Lilian Jara CMA - 11/05/2021 11:36 AM EST Patient called left message on voicemail to contact her back at [phone] documented in this encounter Plan of Treatment Upcoming Encounters Date Type Specialty Care Team Description 11/05/2021 Hem/Onc Treatment Hematology Oncology [place], Chair 11 Hem Onc Scenery [address] [facility] [address] 11/08/2021 Office Visit Otolaryngology Dylon Moreno DO [address] [place] [address] 11/10/2021 Office Visit Pharmacy [facility] [address] [place] [address] 11/11/2021 Home Visit Family Medicine Kaylee Barakat, Community Health Nutrition Program Instructor [address] [place] [address] 11/12/2021 Office Visit Gynecology Obstetrics Concetta Khan MD [address] [place] [address] 11/15/2021 Laboratory Laboratory Processing [facility], [facility] Mobile Home Draw [address] [place] [address] 11/16/2021 Office Visit Family Vanita Carpio MD [address] [place] [address] 11/25/2021 Home Visit [facility] July Poe RN [address] [place] [address] 11/26/2021 Hem/Onc Treatment Hematology [place]cology [place], Chair 4 Hem Onc Scenery 200 [facility] [place] [facility] [place] [address] 11/29/2021 Laboratory Laboratory Processing [facility], [facility] Mobile Home Draw [address] [place] [address] 11/30/2021 Home Visit Family Kaylee Becerril, Community Health Nutrition Program Instructor [address] [place] [address] 12/13/2021 Laboratory Laboratory Processing [facility], [facility] Mobile Home Draw [address] [place] [address] 12/17/2021 Hem/Onc Treatment Hematology Oncology [place], Chair 2 Hem Onc Scenery [address] [place] [facility] [address] 12/22/2021 Office Visit Endocrinology Alberta Duque PA-C [address] [place] [address] 12/23/2021 Office Visit Gastroenterology Lyssa Stout CRNP [address] [place] [address] 12/27/2021 Laboratory Laboratory Processing [facility], [facility] Mobile Home Draw [address] [place] [address] 01/04/2022 Office Visit Hematology Oncology Tono Sanchez MD [address] [place] [address] 01/07/2022 Hem/Onc Treatment Hematology Oncology [place], Chair 1 Hem Onc Scenery 200 [facility] [address] 01/10/2022 Laboratory Laboratory Processing [facility], [facility] Mobile Home Draw [address] [place] [address] 01/24/2022 Laboratory Laboratory Processing [facility], [facility] Mobile Home Draw [address] [place] [address] 01/28/2022 Hem/Onc Treatment Hematology Oncology [place], Chair 1 Hem Onc Scenery 200 [facility] [address] 02/07/2022 Laboratory Laboratory Processing [facility], [facility] Mobile Home Draw [address] [place] [address] 02/18/2022 Hem/Onc Treatment Hematology Oncology [place], Chair 1 Hem Onc Scenery [address] [facility] [address] 02/21/2022 Laboratory Laboratory Processing [facility] Mobile Home Draw [address] [place] [address] 03/07/2022 Laboratory Laboratory Processing [facility] Mobile Home Draw [address] [place] [address] 03/11/2022 Hem/Onc Treatment Hematology [place]cology [place], Chair 1 Hem Onc Scenery [address] [facility] [address] 03/24/2022 Office Visit Pulmonary Reynaldo Marquez MD [address] [place] [address] 04/01/2022 Hem/Onc Treatment Hematology [place]cology [place], Chair 1 Hem Onc Scenery [address] [facility] [address] 04/22/2022 Hem/Onc Treatment Hematology [place]cology [place], Chair 1 Hem Onc Scenery [address] [facility] [address] 05/05/2022 Office Visit Cardiology Quyen Canseco CRNP 132 [facility] [place] [address] 06/24/2022 Office Visit Sleep Disorders Love Francisco DO [address] [place] [address] Scheduled Procedures Name Priority Associated Diagnoses Date/Ti [...] of this encounter Implants Implanted Type Area Rigger Third Device Identifier Shelf Expiration Date Model / Serial / Lot Microtech Sure Clip Implanted:Qty: 2 on 06/03/2020 by Janis Hatch DO at OR [facility] Clip N/A: Colon 04/21/2022 [facility]-F-26-2 35-C-R / / [id number] documented as of this encounter Advance Directives Documents on File Type Date Recorded Patient Pcts 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 WILL LIVING WILL AND HEALTH CARE POA [facility] 04/29/2021 12:00 AM TOM Johnson [facility] POA Advanced Directive 04/01/2021 1:14 PM Advanced [...] Bustos Spouse Emergency Contact Care Teams Supervisor Photoengraving Relationship Specialty Start Date End Date Vanita Dunn MD [address] [place] [address] PCP - General Family Medicine 03/16/21 documented as of this encounter
--- OUTSIDE RECORDS SUMMARY | 2023-05-10 19:17 | External Medical Summary | Summary of Care ---
Author Name Unknown Organization [facility] [address] Care Team Providers Care Hull Drafter Name Role Phone Vanita Dunn MD Primary Care Provid er Reason for Visit * Reason Comments Follow Up Encounter Details Date Type Department Care Team Description 11/04/2021 Office Visit Cardiology, [facility] [address] [facility] [place] [phone] Quyen Canseco CRNP [address] [facility] [place] [address] Chronic diastolic (congestive) heart failure (HCC)*; Hepatic cirrhosis, unspecified hepatic cirrhosis type, unspecified whether ascites present (HCC); THAD on CPAP; Anemia, unspecified type 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 documented as of this encounter (statuses as of 11/04/2021) Medications Medication Sig Dispensed Refills Start Date End Date Status albuterol sulfate (PROVENTIL) (2.5 MG/3ML) 0.083% nebulizer solutionIndications :Pulmonary vascular congestion Inhale 1 Vial via nebulizer every 6 hours as needed for Wheezing. 120 Vial 11 10/02/2019 Active nystatin (NYSTOP) 998173 UNIT/GM powder Apply topically to affected area [...] Informant: Pharmacy, Reported on 02/04/2021 Dexcom G6 Sheet Hanger Device Use as directed. To test blood [...] Strip 3 10/29/2020 Active OneTouch Delica Plus [id number] TESTING once daily 100 Each 3 10/29/2020 [...] 04/23/2021 Active Nadolol 40 MG Oral Tablet (Corgard)Indication [...] major depressive disorder, in partial remission ([facility]) TAKE 1 TABLET BY MOUTH ONCE DAILY 90 Tablet 1 08/07/2021 Active BD Pen Needle Mini U/F 31G X 5 MM (Insulin Pen Needle)Indications: Type 2 diabetes mellitus with hemoglobin A1c goal of less than 7.0% ([facility]) USE TO INJECT INSULIN FOUR TIMES [...] AT BEDTIME 30 Tablet 5 08/30/2021 Active traMADol HCl 50 MG Oral Tablet (Ultram)Indications :Acute pain of left shoulder Take 1 Tablet by mouth 2 times a day as needed for Pain, Severe. 20 Tablet 0 09/14/2021 Active Lactulose 10 GM/15ML Oral Solution (Constulose) [...] TWICE DAILY 180 Tablet 1 10/26/2021 Active Ibuprofen 800 MG Oral Tablet (Motrin)Indications :Costochondral chest pain Take 1 Tab by mouth daily as needed for Pain, Severe. with food for pain 30 Tab 3 05/25/2021 2 Discontinu ed(Patient preference /discontin uation) documented as of this encounter (statuses as of 11/04/2021) Active Problems Problem Noted Date Food insecurity [...] as of this encounter (statuses as of 11/04/2021) Resolved Problems Problem Noted Date Resolved Date [...] pain 01/24/2012 01/17/2017 Genetic Sleep Disorder Research Other*[id number] 05/13/2011 04/07/2016 Obstructive sleep apnea 01/18/2011 12/27/19 [...] as of this encounter (statuses as of 11/04/2021) Immunizations Name Administration Dates Next Due COVID-19 [...] Reading Time Taken Comments Blood Pressure 110/70 11/04/2021 12:11 PM EST Pulse 72 11/04/2021 12:11 PM EST Temperature 36.6 C (97.8 F) 11/04/2021 12:[address] Respiratory Rate 16 11/04/2021 12:11 PM EST Oxygen Saturation - - Inhaled [...] of this encounter Progress Notes * ZAK Rangel - 11/04/2021 12:00 PM EST Cardiology Outpatient Visit 11/04/[address] Hagen Past medical history: 1. Cerebral palsy/spinal stenosis with marked restriction in activities, wheelchair dependent 2. Morbid obesity 3. Chronic diastolic CHF, NYHA class 3 4. 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 Obstructive sleep apnea /restrictive lung disease on nocturnal BiPAP 6. Chronic anemia 7. Hyperlipidemia on therapy 8. Chronic gastritis HPI Medically complex 66-year-old female presenting to the cardiology office today in routine follow-up. Was last seen by Dr. Hagen in May of 2021. At this appointment she was referred for chest pain and edema. Patient is morbidly obese and essentially wheelchair-bound. She carries a history of hepatic cirrhosis and portal hypertension as well as chronic rest straight is and anemia. It was belie rodrick phone of diastolic heart failure was present and she was hypervolemic at that time. Patient wasinstructed to increase Lasix x3 days and spironolactone was increased to 50 mg daily. Since this appointment she has had multiple emergency department visits for evaluation of abdominal pain, UTI symptoms, atypical/musculoskeletal chest pain, acute CHF symptoms, right-sided weakness, hematuria,dizziness/confusion in the setting of noncompliance with her lactulose. Most recently she was evaluated by [facility] on 09/23 due to complaints of cough, dizziness, and anemia. Patient was also found to have an abnormally high ammonia level due to noncompliance with lactulose. 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 She is also following with Hematology reading the anemia will be starting iron infusions tomorrow. Today the patient presents with her caregiver. Notes that she is feeling well from a cardiac standpoint. Denies any exertional chest pain. Does have shortness of breath and fatigue likely due to the ongoing anemia. No palpitations. She does become dizzy with position changes but no syncope. Patientis primarily screwed her bound and uses a Svetlana lift. Lower extremity edema at baseline. Current Outpatient Medications Medication Sig Dispense Refill albuterol sulfate (PROVENTIL) (2.5 MG/3ML) 0.083% nebulizer solution Inhale 1 Vial via nebulizer every 6 hours as needed for Wheezing. 120 Vial 11 Albuterol Sulfate (ALBUTEROL HFA) 108 (90 BASE) MCG/ACT inhaler Inhale 2 Puffs by mouth every 4hours as needed for Cough or Wheezing. With spacer 16 g 1 Ipratropium-Albuterol 0.5-2.5 (3) MG/3ML Inhalation Solution (DUONEB) Inhale 3 mL via nebulizer4 times a day. (Patient taking differently: Inhale 3 mL via nebulizer 4 times a day as needed for Shortness of Breath.) 3 mL 10 Lidocaine-Prilocaine 2.5-2.5 % External Cream (Emla) Apply topically to affected area as neededfor Other (for port). APPLY TO SKIN OVER MEDIPORT & COVER 1HR PRIOR TO ACCESSING. 30 g 3 BiPAP every night at bedtime. NovoLOG FlexPen 100 [...] BY MOUTH ONCE DAILY 90 Tablet 1 Isosorbide Mononitrate ER 30 MG Oral Tablet Extended Release 24 Hour (Imdur) TAKE 1 TABLET BY MOUTH ONCE DAILY 30 Tablet 5 Aspirin 81 MG Oral Tablet Chewable CHEW AND SWALLOW 1 TABLET BY MOUTH ONCE DAILY 30 Tablet 5 Atorvastatin Calcium 80 MG Oral Tablet (Lipitor) TAKE 1 TABLET BY MOUTH AT BEDTIME 30 Tablet 5 traMADol HCl 50 MG Oral Tablet (Ultram) Take 1 Tablet by mouth 2 times a day as needed for Pain, Severe. 20 Tablet 0 Lactulose 10 GM/15ML Oral Solution (Constulose) Take [...] 2 times a day. 10.2 g 1 Oxybutynin Chloride 5 MG Oral Tablet (Ditropan) TAKE 1 TABLET BY MOUTH TWICE DAILY 180 Tablet 1 nystatin (NYSTOP) 879205 UNIT/GM powder Apply topically to affected area 3 times a day. (Patient not taking: Reported on 11/04/2021 ) 60 g 1 Dexcom G6 Sheet Hanger Device Use as directed. To test blood sugars 4 times a day Dx E11.9 1 Each 0 Dexcom G6 Transmitter Use as directed. To test blood sugars 4 times a day. Change every 90 days. Dx E11.9 1 Each 3 OneTouch Verio In Vitro Strip (Glucose Blood) TESTING once daily 100 Strip 3 OneTouch Delica Plus [id number] TESTING once daily 100 Each 3 Nitroglycerin 0.4 MG Sublingual Tablet Sublingual (Nitrostat) Place 1 Tab under the tongue every 5 minutes as needed for Pain, Chest. up to 3 doses in 15 minutes (Patient not taking: Reported on 11/04/2021 ) 25 Tab 11 MEDICAL INSTRUCTIONS Please de-access patient's port. Please flush with 10 mL of NS, followed by 500 units (5 mL) of heparin. 1 Each N/A BD Pen Needle Mini U/F 31G X 5 MM (Insulin Pen Needle) USE TO INJECT INSULIN FOUR TIMES DAILY. 400 Each 3 Dexcom G6 Sensor use as directed to test blood sugar 4 times daily. change sensor every 10 days3 Each 3 Disposable Brief X-Large Use as directed 60 Each 5 No current facility-administered medications for this visit. Past Medical History: Diagnosis Date Cerebral palsy (HCC) 01/24/2012 Chronic constipation Chronic diastolic (congestive) heart failure ([facility]) 09/13/2021 Chronic hypoxemic respiratory failure ([facility]) 04/08/2019 Chronic pain 03/27/2012 Cirrhosis of liver ([facility]) 11/20/2017 DDD (degenerative disc disease), lumbar [...] A1c goal of less than 7.0% ([facility]) 09/26/2013 ICD-10 update of inactive term Type 2 diabetes mellitus with hemoglobin A1c goal of less than 8.0% ([facility]) 09/26/2013 ICD-10 update of inactive term Past Surgical History: Procedure Laterality Date BONE DEBRIDEMENT, FIRST 20 CM2 Right 04/16/2020 DEBRIDEMENT SKIN SUBCUTANEOUS TISSUE MUSCLE AND BONE performed by Josh Vazquez MD at [facility] DELIVERY 04/20/1982 COLONOSCOPY 04/21/2009 repeat in 10 years COLONOSCOPY, DIAGNOSTIC (RECTUM) 10/04/2016 normal bx, repeat 10 yrs/[facility] COLONOSCOPY, DIAGNOSTIC (RECTUM) N/A 06/03/2020 internal hemorrhoids/biopsies show adenomatous polyps/recall 5 years/COLONOSCOPY FLEXIBLE PROXIMAL DIAGNOSTIC performed by Janis Hatch DO at OR [facility] COLONOSCOPY, DIAGNOSTIC (RECTUM) 03/17/2020 poor prep [...] formed by Janis Hatch DO at OR [facility] EGD, FLEXIBLE, DIAGNOSTIC 11/27/2019 eso varices, portal hypertensive gastropathy, gastritis / [facility] EGD, FLEXIBLE, DIAGNOSTIC N/A 08/05/2020 large amount of food in stomach/repeat 1.5 years/ESOPHAGOGASTRODUODENOSCOPY (EGD), FLEXIBLE, TRANSORAL, DIAGNOSTIC performed by Janis Hatch DO at OR [facility] EGD, FLEXIBLE, DIAGNOSTIC N/A 03/10/2021 ESOPHAGOGASTRODUODENOSCOPY (EGD), FLEXIBLE, TRANSORAL, DIAGNOSTIC performed by Kris Blankenship MD at ENDOSCOPY [facility] MEDIPORT 10/05/2020 PELVIS/HIP JOINT [...] Perflutren Protein A Microsph Definity-lower back pain Review of Systems: See HPI for pertinent positives. All others negative, other than those noted in HPI. Physical Exam BP 110/70 (BP Site: Left Arm, BP Position: Sitting, BP Cuff Size: Large) | Pulse 72 | Temp 36.6 C(97.8 F) (Infrared ) | Resp 16 General: Obese female in wheelchair, no acute distress Head: normocephalic, no masses, lesions, tenderness or abnormalities Eyes: conjunctiva are pink and non-injected, sclera clear Neck: Thick supple, no adenopathy, no bruits, normal jugular venous pulse, no hepatojugular reflux,no carotid bruits Chest: normal shape and normal respiratory effort Lungs: Diminished breath sounds but clear Cardiac Exam: - regular rate & rhythm, harsh grade 2-3/6 systolic murmur, no diastolic murmur, gallop or rub - normal S-1, normal S-2 Abdomen: Obese. Soft, nontender Musculoskeletal: Wheelchair dependent Extremities: +1 bilateral edema to the knees and thighs with chronic stasis changes, no cyanosis, pulses intact 2+/4 Neuro: grossly normal exam Lab data/imaging study review: Echo 06/2021 The study was technically limited. Study was performed with patient seated in motorized wheelchair. Patient has documented allergy to Definity ultrasound contrast. Mild aortic valve stenosis is suggested by technically limited Doppler evaluation. The left ventricular ejection fraction is grossly normal. Impression/Plan: 1. Chronic diastolic (congestive) heart failure (HCC) Patient appears euvolemic on exam. Will not make any changes at this time. History considerations for repeating echocardiogram discussed however will only be able to obtain a wheelchair reclines or the use of a lift was available. 2. 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 3. THAD on CPAP Compliant on BiPAP. 4. Anemia, unspecified type Worsening anemia. Working with Hematology on obtaining iron infusion startig tomorrow. Patient alsoplanning on undergoing a biopsy of her uterus on 11/22. No medication changes to be made at this time. Encouraged compliance with all medications. The patient agrees to the above plan and will call with additional questions or concerns. ER with all emergencies advised. Follow-up: Return in about 6 months (around 05/04/2022). | Check-out note: 6 mos with I spent a total of 40 minutes on the date of service in preparation, delivery, and documentation ofthe care provided to Shaina Bustos excluding any time spent in the performance of separately billed services. ZAK Piña, Department of Cardiology This chart was completed in part utilizing [employer] Speech Voice Recognition Software. Grammatical errors, random word insertions, prounoun errors, and incomplete sentences are an occasional consequence of this system due to software limitations, ambient noise, and hardware issues. Any formal questions or concerns about the content, text, or information contained within the body of this dictation should be directly addressed to the provider for clarification. documented in this encounter Nursing Notes * Neftali Kirk RN - 11/04/2021 12:09 PM EST Examination Room: room7 Name: Shaina Bustos Date of : (1955). Reason for Visit: for follow up Interim Hospitalization(s): denies Problems/Concerns: denies Chest Pain/SOB: denies [facility] Discussed: Yes information given to her [facility] is a way you can talk to your provider online through e-mail. Would you like to sign up? I can activate it for you? NO INTERNET ACCESS Patient was instructed to not get up on the exam table until directed and assisted by their provider; patient is to remain seated in the chair/ wheelchair/ exam table for fall prevention and safety reasons. Patient is aware to have assistance to step down off exam table with personnel. Patient voiced full comprehension of instructions. documented in this encounter Plan of Treatment Upcoming Encounters Date Type Specialty Care Team Description 11/05/2021 Hem/Onc Treatment Hematology Oncology [place], Chair 11 Hem Onc Sc[address]ery [address] [place] [address] 11/08/2021 Office Visit Otolaryngology Dylon Moreno DO [address] [facility] [place] [address] 11/10/2021 Office Visit Pharmacy Artemio Candelaria [address] [id number] 11/11/2021 Home Visit Family Medicine Kaylee Barakat, [facility] Mica Layer [address] [place] [address] 11/12/2021 Office Visit Gynecology Obstetrics Concetta Khan MD [address] [place] [address] 11/15/2021 Laboratory Laboratory [facility], [facility] Mobile Home Draw [address] [place] [address] 11/16/2021 Office Visit Family Medicine Vanita Dunn MD [address] [place] [address] 11/25/2021 Home Visit [facility] July Poe RN [address] [place] [address] 11/26/2021 Hem/Onc Treatment Hematology Oncology Maryellen, Chair 4 Hem Onc Scenery [address] [facility] [place] [address] 11/29/2021 Laboratory Laboratory Processing [facility], Gml Mobile Home Draw [address] [place] [address] 11/30/2021 Home Visit Family Medicine Kaylee Barakat, [facility] Layer [address] [place] [address] 12/13/2021 Laboratory Laboratory Processing [facility] Draw [address] [place] [address] 12/17/2021 Hem/Onc Treatment Hematology Oncology [place], Chair 2 Hem Onc Scenery [address] [place] [address] 12/22/2021 Office Visit Endocrinology Alberta Duque PA-C [address] [place] [address] 12/23/2021 Office Visit Gastroenterology Lyssa Stout CRNP [address] [place] [address] 12/27/2021 Laboratory Laboratory Processing [facility] Draw [address] [place] [address] 01/04/2022 Office Visit Hematology Oncology Tono Sanchez MD [address] [place] [address] 01/07/2022 Hem/Onc Treatment Hematology Oncology [place], Chair 1 Hem Onc Scenery [address] [place] [address] 01/10/2022 Laboratory Laboratory Processing [facility], [facility] Draw [address] [place] [address] 01/24/2022 Laboratory Laboratory Processing [facility], [facility] Draw [address] [place] [address] 01/28/2022 Hem/Onc Treatment Hematology Oncology [place], Chair 1 Hem Onc Scenery [address] [place] [address] 02/07/2022 Laboratory Laboratory Processing [facility], [facility] Draw [address] [place] [address] 02/18/2022 Hem/Onc Treatment Hematology Oncology [place], Chair 1 Hem Onc Scenery [address] [place] [address] 02/21/2022 Laboratory Laboratory Processing [facility], [facility] Draw [address] [place] [address] 03/07/2022 Laboratory Laboratory Processing [facility] Mobile Home Draw [address] [place] [address] 03/11/2022 Hem/Onc Treatment Hematology Oncology [place], Chair 1 Hem Onc Scenery [address] [place] [address] 03/24/2022 Office Visit Pulmonary Reynaldo Marquez MD [address] [place] [address] 04/01/2022 Hem/Onc Treatment Hematology Oncology [place], Chair 1 Hem Onc Sc[address]ery [address] [place], [place] [address] 04/22/2022 Hem/Onc Treatment Hematology Oncology [place], Chair 1 Hem Onc Scenery [address] [place] [address] 05/05/2022 Office Visit Cardiology Quyen Canseco CRNP [address] [facility] [place] [address] 06/24/2022 Office Visit Sleep Disorders Love Francisco DO [address] [facility] [place] [address] Scheduled Procedures Name Priority Associated Diagnoses Date/Ti [...] of this encounter Implants Implanted Type Area Enrichment Specialist Device Identifier Shelf Expiration Date Model / Serial / Lot [employer] Sure Clip Implanted:Qty: 2 on 06/03/2020 by Janis Hatch DO at OR [facility] Clip N/A: Colon 04/21/2022 [id number]-F-[id number] 35-C-[id number] / / [id number] documented as of this encounter Visit Diagnoses Diagnosis Chronic diastolic (congestive) heart failure (HCC)- Primary Hepatic cirrhosis, unspecified hepatic cirrhosis type, unspecified whether ascites present (HCC) THAD on CPAP Obstructive sleep apnea (adult) (pediatric) Anemia, unspecified type documented in this encounter Advance Directives Documents on File Type Date Recorded 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
--- OUTSIDE RECORDS SUMMARY | 2023-05-10 19:17 | External Medical Summary | Summary of Care ---
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 120 Vial 11 10/02/2019 Active nystatin (NYSTOP) 841765 UNIT/GM powder Apply topically to affected area [...] Informant: Pharmacy, Reported on 02/04/2021 Dexcom G6 Circus Roustabout Device Use as directed. To test blood [...] Strip 3 10/29/2020 Active OneTouch Delica Plus [id number] TESTING once daily 100 Each 3 10/29/2020 [...] tablet daily. 90 Tab 1 05/11/2021 Active Ibuprofen 800 MG Oral Tablet (Motrin)Indications: Costochondral chest pain Take 1 Tab by mouth daily as needed for Pain, Severe. with food for pain 30 Tab 3 05/25/2021 Active Additional Information Patient taking differently: 800 mg Oral DAILY PRN, Pain, Severe, with food for pain. In patient home but highly advised to stop due to bleed risk associated with use., Reported on 09/24/2021 Spironolactone 25 MG Oral Tablet (Aldactone) Take [...] :Recurrent major depressive disorder, in partial remission ([facility]) TAKE 1 TABLET BY MOUTH ONCE [...] Tablet (Ultram)Indications: Acute pain of left shoulder Take 1 Tablet [...] as of this encounter (statuses as of 11/03/2021) Active Problems Problem Noted Date Food insecurity [...] as of this encounter (statuses as of 11/03/2021) Resolved Problems Problem Noted Date Resolved Date [...] pain 01/24/2012 01/17/2017 Genetic Sleep Disorder Research Other*[id number] 05/13/2011 04/07/2016 Obstructive sleep apnea 01/18/2011 12/27/19 [...] as of this encounter (statuses as of 11/03/2021) Immunizations Name Administration Dates Next Due COVID-19 mRNA, LNP-s, No Pre serve, 2-Dose Series (Moderna) 12/21/2020,11/23/2020 HEP A - Hepatitis A (Adult > [...] Telephone Encounter - Arlin Rogers LPN - 11/03/2021 10:05 AM EST Phone call to pt. Spoke home health aid at pt's care home ( [place]). Pt scheduled 11/12/2021 at 1 pm Arlin Rogers LPN * Telephone Encounter - Josefa Okeefe RN - 11/03/2021 8:49 AM EST Spoke with pt's - advised that we do not have access to use a candace lift in the clinic as requested. states they wish to cancel the appt and be scheduled at [place] for follow up. Please assist with an appt. * Telephone Encounter - THAD Monreal - 11/02/2021 11:08 AM EST Guitar Maker and PT called in regards to whether they need to bring the lift or are they to schedule with [place], please assist. Thank you! documented in this encounter Plan of Treatment Upcoming Encounters Date Type Specialty Care Team Description 11/04/2021 Office Visit Cardiology Quyen Canseco CRNP [address] [place] [address] 11/05/2021 Hem/Onc Treatment Hematology Oncology [place], Chair 11 Hem Onc Scenery [address] [place] [address] 11/08/2021 Office Visit Otolaryngology Dylon Moreno DO [address] [place] [address] 11/10/2021 Office Visit Pharmacy [facility] [address] [place] [address] 11/11/2021 Home Visit Family Medicine Kaylee Barakat, [facility] [place] [address] [place] [address] 11/12/2021 Office Visit Gynecology Obstetrics Concetta Khan MD [address] [facility] [place] [address] 11/15/2021 Laboratory Laboratory Processing [facility] Mobile Home Draw [address] [place] [address] 11/16/2021 Office Visit Family Medicine Vanita Dunn MD [address] [place] [address] 11/25/2021 [facility] Visit [facility] July Poe, RN [address] [place] [address] 11/26/2021 Hem/Onc Treatment Hematology Oncology [place], Chair 4 Hem Onc Scenery [address] [place] [address] 11/29/2021 Laboratory Laboratory Processing [facility] Mobile Home Draw [address] [place] [address] 11/30/2021 Home Visit Family Medicine Kaylee Barakat, [facility] [place] [address] [place] [address] 12/13/2021 Laboratory Laboratory Processing [facility] Mobile Home Draw [address] [place] [address] 12/17/2021 Hem/Onc Treatment Hematology Oncology [place], Chair 2 Hem Onc Scenery [address] [place] [address] 12/22/2021 Office Visit Endocrinology Alberta Duque PA-C [address] [place] [address] 12/23/2021 Office Visit Gastroenterology Lyssa Stout CRNP [address] [place] [address] 12/27/2021 Laboratory Laboratory Processing [facility] Mobile Home Draw [address] [place] [address] 01/04/2022 Office Visit Hematology Oncology Tono Sanchez MD [address] [place] [address] 01/07/2022 Hem/Onc Treatment Hematology Oncology [place], Chair 1 Hem Onc Scenery [address] [place] [address] 01/10/2022 Laboratory Laboratory Processing [facility] Mobile Home Draw [address] [place] [address] 01/24/2022 Laboratory Laboratory Processing [facility] Mobile Home Draw [address] [place] [address] 01/28/2022 Hem/Onc Treatment Hematology Oncology [place], Chair 1 Hem Onc Scenery [address] [place] [address] 02/07/2022 Laboratory Laboratory Processing [facility] Mobile Home Draw [address] [place] [address] 02/18/2022 Hem/Onc Treatment Hematology Oncology [place], Chair 1 Hem Onc Scenery [address] [facility] [place] [address] 02/21/2022 Laboratory Laboratory Processing [facility] Mobile Home Draw [address] [place] [address] 03/07/2022 Laboratory Laboratory Processing [facility] Mobile Home Draw [address], [place] [address] 03/11/2022 Hem/Onc Treatment Hematology Oncology [place], Chair 1 Hem Onc Scenery [address] [place] [address] 03/24/2022 Office Visit Pulmonary Reynaldo Marquez MD [address] [place] [address] 04/01/2022 Hem/Onc Treatment Hematology Oncology [place], Chair 1 Hem Onc Scenery [address] [place] [address] 04/22/2022 Hem/Onc Treatment Hematology Oncology [place], Chair 1 Hem Onc Scenery [address] [place] [address] 06/24/2022 Office Visit Sleep Disorders Love Francisco, DO 132 [facility] [place] [address] Scheduled Procedures Name Priority Associated Diagnoses Date/Ti [...] Vaccines (3 of 3) 06/23/2020 04/28/2020, 11/11 COVID-19 Vaccine (3 - Booster for Moderna series) 05/23/2021 12/21/2020, 11/23/2020 Depression Screening, Annual for Pts 12 and [...] of this encounter Implants Implanted Type Area Certified Medicine Aide Device Identifier Shelf Expiration Date Model / Serial / Lot Microtech Sure Clip Implanted:Qty: 2 on 06/03/2020 by Janis Hatch DO at OR [facility] Clip N/A: Colon 04/21/2022 [facility]-F-26-2 35-C-R / / [id number] documented as of this encounter Advance Directives Documents on File Type Date Recorded Patient Optical Worker 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 WILL AND HEALTH CARE POA Power of Ssn/Ssbn Weapons Equipment Operator 04/29/2021 12:00 AM TOM R OF HIRED WORKER HEALTH CARE POA Advanced Directive 04/01/2021 [...] Bustos Spouse Emergency Contact Care Teams Candy Feeder Relationship Specialty Start Date End Date Vanita Dunn MD [address] [place] [address] PCP - General Family Medicine 03/16/21 documented as of this encounter
--- OUTSIDE RECORDS SUMMARY | 2023-05-10 19:17 | External Medical Summary | Summary of Care ---
Author Name Unknown Organization [place] [address] Care Team Providers Care Solderer Dipper Name Role Phone Vanita Dunn MD Primary Care Provid er Reason for Visit * Reason Onset Date Comments Medication Update 10/29/2021 Encounter Details Date Type Department Care Team Description 10/29/[facility] [address] [place] [address] Indira Hudson, [facility] [address] [place] [address] Medication Update Allergies Active Allergy Reactions Severity Noted Date [...] 120 Vial 11 10/02/2019 Active nystatin (NYSTOP) 679161 UNIT/GM powder Apply topically to affected area [...] of Breath, Informant: Pharmacy, Reported on 02/04/2021 DexHeliospectra G6 Healthcare Representative Device Use as directed. To test [...] Strip 3 10/29/2020 Active OneTouch Delica Plus [id number] TESTING once daily 100 Each 3 10/29/2020 [...] Noted Date Food insecurity 09/20/2021 Overview: Per [facility] Protocol Chronic diastolic (congestive) heart [...] pain 01/24/2012 01/17/2017 Genetic Sleep Disorder Research Other*[id number] 05/13/2011 04/07/2016 Obstructive sleep apnea 01/18/2011 12/27/19 [...] encounter Miscellaneous Notes * Telephone Encounter - Indira Hudson RPh - 11/03/2021 4:19 PM EST Received email from [employer] on 11/02 that order for Dexcom was delivered by [email or web address]. Indira Hudson RPh, Pharm D, BCACP Clinical Pharmacist 11/03/21 4:20 PM * Telephone Encounter - Indira Hudson RPh - 10/29/2021 4:02 PM EST Received TT from [facility] RN July Poe that patient was contacted by supplier regarding Dexcom (notsure which supplier) and they said it will need to go through a different supplier. Contacted [facility]. Was informed that patient will now be getting Dexcom supplies through [email or web address] and they should be reaching out to patient. Patient Phone Numbers Called and spoke with patient- informed her about above. She will contact clinic with any issues. Indira Hudson [facility], Pharm D, BCACP Clinical Pharmacist 10/29/21 4:02 PM documented in this encounter Plan of Treatment Upcoming Encounters Date Type Specialty Care Team Description 11/04/2021 Office Visit Cardiology Quyen Canseco CRNP 132 [facility] [place] [address] 11/05/2021 Hem/Onc Treatment Hematology Oncology [place], Chair 11 Hem Onc Scenery [address] [place] [address] 11/08/2021 Office Visit Otolaryngology Dylon Moreno DO 132 [facility] [place] [address] 11/10/2021 Office Visit Pharmacy [place] [address] [place] [address] 11/11/2021 Home Visit Family Medicine Kaylee Barakat, [facility] [place] Supervisor [address] [facility] [address] 11/12/2021 Office Visit Gynecology Obstetrics [facility]etta [facility] [address] [facility] [place] [address] 11/15/2021 Laboratory Laboratory Processing [facility] Mobile Home Draw [address] [place] [address] 11/16/2021 Office Visit Family Medicine Vanita Dunn MD [address] [place] [address] 11/25/2021 [facility] Visit [facility] July Poe RN [address] [place] [address] 11/26/2021 Hem/Onc Treatment Hematology Oncology [place], Chair 4 Hem Onc Scenery [address] [place] [address] 11/29/2021 Laboratory Laboratory Processing [facility] Mobile Home Draw [address] [place] [address] 11/30/2021 Home Visit Family Medicine Kaylee Barakat, Community [facility] [place] Supervisor [address] [place] [address] 12/13/2021 Laboratory Laboratory Processing [facility] Mobile Home Draw [address] [place] [address] 12/17/2021 Hem/Onc Treatment Hematology Oncology [place], Chair 2 Hem Onc Scenery [address] [place] [address] 12/22/2021 Office Visit Endocrinology Alberta Duque PA-C [address] [place] [address] 12/23/2021 Office Visit Gastroenterology Lyssa Stout CRNP [address] [facility] [place] [address] 12/27/2021 Laboratory Laboratory Processing [facility] Mobile Home Draw [address] [place] [address] 01/04/2022 Office Visit Hematology Oncology Tono Sanchez MD [address] [place] [address] 01/07/2022 Hem/Onc Treatment Hematology Oncology [place], Chair 1 Hem Onc Scenery [address] [place] [address] 01/10/2022 Laboratory Laboratory Processing [facility] Mobile Home Draw [address] [place] [address] 01/24/2022 Laboratory Laboratory Processing [facility] Mobile Home Draw [address] [place] [address] 01/28/2022 Hem/Onc Treatment Hematology Oncology [place], Chair 1 Hem Onc Scenery 200 [place] [address] 02/07/2022 Laboratory Laboratory Processing [facility] Mobile Home Draw [address] [place] [address] 02/18/2022 Hem/Onc Treatment Hematology Oncology [place], Chair 1 Hem Onc Scenery 200 [facility] [place] [address] 02/21/2022 Laboratory Laboratory Processing [facility] Mobile Home Draw [address] [place] [address] 03/07/2022 Laboratory Laboratory Processing [facility] Mobile Home Draw [address] [place] [address] 03/11/2022 Hem/Onc Treatment Hematology Oncology [place], Chair 1 Hem Onc Scenery [address] [place] [address] 03/24/2022 Office Visit Pulmonary Reynaldo Marquez MD [address] [place] [address] 04/01/2022 Hem/Onc Treatment Hematology Oncology [place], Chair 1 Hem Onc Scenery [address] [place] [address] 04/22/2022 Hem/Onc Treatment Hematology Oncology [place], Chair 1 Hem Onc Scenery [address] [place] [address] 06/24/2022 Office Visit Sleep Disorders Love Francisco, DO [address] [place] [address] Scheduled Procedures Name Priority Associated Diagnoses Date/Ti [...] of this encounter Implants Implanted Type Area Registered Health Nurse Device Identifier Shelf Expiration Date Model / Serial / Lot Microtech Sure Clip Implanted:Qty: 2 on 06/03/2020 by Janis Hatch DO at OR [facility] Clip N/A: Colon 04/21/2022 [facility]-F-26-2 35-C-R / / [id number] documented as of this encounter Advance Directives Documents on File Type Date Recorded Patient Behavioral Health Care Coordinator 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 WILL AND HEALTH CARE POA Power of Tester Regulator 04/29/2021 12:00 AM TOM R OF 1ST [facility] POA Advanced Directive 04/01/2021 1:14 [...] Name Relationship Healthcare Agent [facility] p Communication Syed Bustos Spouse Emergency Contact Care Teams Solderer Dipper Relationship Specialty Start Date End Date Vanita Dunn MD [address] [place], [place] [id number] PCP - General Family Medicine 03/16/21 documented as of this encounter
--- OUTSIDE RECORDS SUMMARY | 2023-05-10 19:18 | External Medical Summary | Summary of Care ---
Author Name Unknown Organization [facility] [place] [address] Care Team Providers Care Manager Line Name Role Phone Vanita Dunn MD Primary Care Provid er Reason for Visit * Reason Onset Date Comments Referral 10/21/2021 Encounter Details Date Type Department Care Team Description 10/21/2021 Telephone Gynecology/Obstetrics [facility] [address] [place] [address] Susan Jara MD [address] [place] [address] Referral Allergies Active Allergy Reactions Severity Noted Date [...] 120 Vial 11 0 Active nystatin (NYSTOP) 825212 UNIT/GM powder Apply topically to affected area [...] Informant: Pharmacy, Reported on 02/04/2021 Dexcom G6 Motorcycle Deliverer Device Use as directed. To test blood [...] Strip 3 1 Active OneTouch Delica Plus [id number] TESTING once daily 100 Each 3 1 [...] 1 Active Nadolol 40 MG Oral Tablet (Corgard)Indication s:HTN, goal below 140/90 Take 1 tablet daily. 90 Tab 1 1 Active Ibuprofen 800 MG Oral Tablet (Motrin)Indications :Costochondral chest pain Take 1 Tab by mouth daily as needed for Pain, Severe. with food for pain 30 Tab 3 1 Active Additional Information Patient taking differently: 800 [...] AT BEDTIME 30 Tablet 5 1 Active traMADol HCl 50 MG Oral Tablet (Ultram)Indications :Acute pain of left shoulder Take 1 Tablet by mouth 2 times a day as needed for Pain, Severe. 20 Tablet 0 2 Active Lactulose 10 GM/15ML Oral [...] MOUTH TWICE DAILY 180 Tab 1 1 10/26/19 22 Discontinued documented as of this encounter [...] pain 01/24/2012 01/17/2017 Genetic Sleep Disorder Research Other*[id number] 05/13/2011 04/07/2016 Obstructive sleep apnea 01/18/2011 12/27/19 [...] Encounter - Arlin Rogers LPN - 11/03/2021 10:01 AM EST Please see Encounter from 11/02/2021 Arlin Rogers LPN * Telephone Encounter - Gildardo Mason RN - 10/27/2021 10:47 AM EST Images from the original note were not included. [facility] [place] Lubrication Worker/Ob Nurse Pool Please call pt and get appt scheduled - refer to encounter from 10/21. She does need a candace lift for transfers. Thank you. T/C to patient, patient reports being sick and request a call back at later date. Gildardo Mason RN * Telephone Encounter - Franca Dean RN - 10/22/2021 2:40 PM EST Does this pt need to be scheduled in [place] d/t needing candace lift? Pt has appt scheduled for OBGYN office in [place] on 10/27/2021. Please clarify if pt still needs to be seen in [place]. T/C to pt. Pt unsure of appts. Requesting that we call her back at a later time when she is home and has access to her calendar. Please call pt on 10/25/2021. * Telephone Encounter - THAD Araiza - 10/21/2021 1:55 PM EST Referral sent for : Post menopausal bleeding, abnormal trans-vag u/s--needs biopsy. Pt w/c bound and will need candace lift to be placed in exam chair. Please advise documented in this encounter Plan of Treatment Upcoming Encounters Date Type Specialty Care Team Description 11/04/2021 Office Visit Cardiology Quyen Canseco CRNP [address] [place] [address] 11/05/2021 Hem/Onc Treatment Hematology Oncology [place], Chair 11 Hem Onc Scenery [address] [facility] [address] 11/08/2021 Office Visit Otolaryngology Dylon Moreno DO [address] [place] [address] 11/10/2021 Office Visit [address]acy [place] [address] [address] 11/11/2021 Home Visit Family [facility] Kaylee Barakat, Community Health Floor Worker Well Service [address] [place] [address] 11/15/2021 Laboratory Laboratory Processing [facility] Mobile Home Draw [address] [place] [address] 11/16/2021 Office Visit Family Medicine Vanita Dunn MD [address] [place] [address] 11/25/2021 [facility] Visit [facility] July Poe RN [address] [place] [address] 11/26/2021 Hem/Onc Treatment Hematology Oncology [place], Chair 4 Hem Onc Scenery [address] [place] [address] 11/29/2021 Laboratory Laboratory Processing [facility] Mobile Home Draw [address] [place] [address] 11/30/2021 Home Visit [facility] Kaylee Barakat, Community Health Floor Worker Well Service [address] [place] [address] 12/13/2021 Laboratory Laboratory Processing [facility], [facility] Mobile Home Draw [address] [place] [address] 12/17/2021 Hem/Onc Treatment Hematology Oncology [place], Chair 2 Hem Onc Scenery [address] [place] [address] 12/22/2021 Office Visit Endocrinology Alberta Duque PA-C [address] [place] [address] 12/23/2021 Office Visit Gastroenterology Lyssa Stout CRNP [address] [place] [address] 12/27/2021 Laboratory Laboratory Processing [facility] Mobile Home Draw [address] [place] [address] 01/04/2022 Office Visit Hematology Oncology Tono Sanchez MD [address] [place] [address] 01/07/2022 Hem/Onc Treatment Hematology Oncology [place], Chair 1 Hem Onc Scenery [address] [place] [address] 01/10/2022 Laboratory Laboratory Processing [facility] Mobile Home Draw [address] [place] [address] 01/24/2022 Laboratory Laboratory Processing [facility] Mobile Home Draw [address] [place] [address] 01/28/2022 Hem/Onc Treatment Hematology Oncology [place], Chair 1 Hem Onc Scenery [address] [place] [address] 02/07/2022 Laboratory Laboratory Processing [facility] Mobile Home Draw [address] [place] [address] 02/18/2022 Hem/Onc Treatment Hematology Oncology [place], Chair 1 Hem Onc Scenery [address] [place] [address] 02/21/2022 Laboratory Laboratory Processing [facility] Mobile Home Draw [address] [place] [address] 03/07/2022 Laboratory Laboratory Processing [facility], [facility] Mobile Home Draw [address] [place] [address] 03/11/2022 Hem/Onc Treatment Hematology Oncology [place], Chair 1 Hem Onc Scenery [address] [place] [address] 03/24/2022 Office Visit Pulmonary Reynaldo Marquez MD [address] [place] [address] 04/01/2022 Hem/Onc Treatment Hematology Oncology [place], Chair 1 Hem Onc Scenery [address] [facility] [address] 04/22/2022 Hem/Onc Treatment Hematology Oncology [place], Chair 1 Hem Onc Scenery [address] [facility] [address] 06/24/2022 Office Visit Sleep Disorders Love Francisco, DO 132 [facility] [place] [address] Scheduled Procedures Name Priority Associated Diagnoses Date/Ti [...] of this encounter Implants Implanted Type Area Supreme Court Judge Device Identifier Shelf Expiration Date Model / Serial / Lot Microtech Sure Clip Implanted:Qty: 2 on 06/03/2020 by Janis Hatch DO at OR [facility] Clip N/A: Colon 04/21/2022 [facility]-F-26-2 35-C-R / / [id number] documented as of this encounter Advance Directives Documents on File Type Date Recorded Patient Account Support Associate 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 WILL AND HEALTH CARE POA Power of Shadowgraph Operator 04/29/2021 12:00 AM TOM R OF ENROLLED AGENT HEALTH CARE POA Advanced Directive 04/01/2021 [...] Bustos Spouse Emergency Contact Care Teams Manager Line Relationship Specialty Start Date End Date Vanita Dunn MD [address] [place] [address] PCP - General Family Medicine 03/16/21 documented as of this encounter
--- OUTSIDE RECORDS SUMMARY | 2023-05-10 19:18 | External Medical Summary | Summary of Care ---
Author Name Unknown Organization [facility] [place] [address] Care Team Providers Care High Risk Case Manager Name Role Phone Vanita Dunn MD Primary Care Provid er Encounter Details Date Type Department Care Team Description 11/02/2021 Telephone Gynecology/Obstetrics [facility] [address] [place] [address] Irma Messina CRNP [address] [place], [place] [id number] 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 documented as of this encounter (statuses as of 11/02/2021) Medications Medication Sig Dispensed Refills Start Date End Date Status albuterol sulfate (PROVENTIL) (2.5 MG/3ML) 0.083% nebulizer solutionIndications: Pulmonary vascular congestion Inhale 1 Vial via nebulizer every 6 hours as needed for Wheezing. 120 Vial 11 10/02/2019 Active nystatin (NYSTOP) 542583 UNIT/GM powder Apply topically to affected area [...] Informant: Pharmacy, Reported on 02/04/2021 Dexcom G6 Railroad Engineer Device Use as directed. 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 States pt is needing a biopsy and will need lift assist to the table. An appointment is made for pt in [facility] tomorrow and they are going to call and see if they are able to do all that there or if they need to make an appointment with this office. Please advise when pt's nurse calls back. Thank you. Marie Oscar LPN * Telephone Encounter - Marie Oscar LPN - 11/02/2021 10:55 AM EST ----- Message from ZAK Romo sent at 10/29/2021 3:08 PM EST ----- ----- Message ----- From: THAD Loja Sent: 10/29/2021 3:08 PM EST To: , # ----- Message ----- From: July Poe RN Sent: 10/21/2021 8:42 AM EST To: [facility] Scheduling Pool Pt needs visit with gynecology scheduled for JONO d/t ongoing vaginal bleeding. Also needs her heme/onc appointment rescheduled. Thank you. documented in this encounter Plan of Treatment Upcoming Encounters Date Type Specialty Care Team Description 11/03/2021 Office Visit Gynecology Obstetrics Enrrique Sandhu MD [address] [place] [address] 11/04/2021 Office Visit Cardiology Quyen Canseco CRNP [address] [facility] [place] [address] 11/05/2021 Hem/Onc Treatment Hematology Oncology [place], Chair 11 Hem Onc Scenery [address] [facility] [address] 11/08/2021 Office Visit Otolaryngology Dylon Moreno DO [address] [facility] [place] [address] 11/10/2021 Office Visit Pharmacy [place], [facility] [address] [place] [address] 11/11/2021 Home Visit Family Medicine Kaylee Barakat, [facility] Hydraulic Press Tender [address] [place] [address] 11/15/2021 Laboratory Laboratory Processing [facility], [facility] Mobile Home Draw [address] [place] [address] 11/16/2021 Office Visit Family Medicine Vanita Dunn MD [address] [place] [address] 11/25/2021 Home Visit [facility] July Poe RN [address] [place] [address] 11/26/2021 Hem/Onc Treatment Hematology Oncology [place], Chair 4 Hem Onc Scenery [address] [place] [address] 11/29/2021 Laboratory Laboratory Processing [facility], [facility] Mobile Home Draw [address] [place] [address] 11/30/2021 Home Visit [facility] Kaylee Barakat, [facility] [employer]draulic Press Tender [address] [place] [address] 12/13/2021 Laboratory Laboratory Processing [facility], [facility] Mobile Home Draw [address] [place] [address] 12/17/2021 Hem/Onc Treatment Hematology Oncology [place], Chair 2 Hem Onc Scenery [address] [place] [address] 12/22/2021 Office Visit Endocrinology Alberta Duque PA-C [address] [place] [address] 12/23/2021 Office Visit Gastroenterology Lyssa Stout CRNP [address] [place] [address] 12/27/2021 Laboratory Laboratory Processing [facility], [facility] Mobile Home Draw [address] [place] [address] 01/04/2022 Office Visit Hematology Oncology Tono Sanchez MD [address] [place] [address] 01/07/2022 Hem/Onc Treatment Hematology Oncology [place], Chair 1 Hem Onc Scenery 200 [facility] [place] [address] 01/10/2022 Laboratory Laboratory Processing [facility], [facility] Mobile Home Draw [address] [place] [address] 01/24/2022 Laboratory Laboratory Processing [facility], [facility] Mobile Home Draw [address] [place] [address] 01/28/2022 Hem/Onc Treatment Hematology Oncology [place], Chair 1 Hem Onc Scenery 200 [facility], [place] [address] 02/07/2022 Laboratory Laboratory Processing [facility], [facility] Mobile Home Draw [address] [place] [address] 02/18/2022 Hem/Onc Treatment Hematology Oncology [place], Chair 1 Hem Onc Scenery [address] [facility] [place] [address] 02/21/2022 Laboratory Laboratory Processing [facility], [facility] Mobile Home Draw [address] [place] [address] 03/07/2022 Laboratory Laboratory Processing [facility], [facility] Mobile Home Draw [address] [place] [address] 03/11/2022 Hem/Onc Treatment Hematology Oncology [place], Chair 1 Hem Onc Scenery [address] [facility] [address] 03/24/2022 Office Visit Pulmonary Reynaldo Marquez MD [address] [place] [address] 04/01/2022 Hem/Onc Treatment Hematology Oncology [place], Chair 1 Hem Onc Scenery [address] [place] [address] 04/22/2022 Hem/Onc Treatment Hematology Oncology [place], Chair 1 Hem Onc Scenery [address] [place] [address] 06/24/2022 Office Visit Sleep Disorders Love Francisco, DO 132 [facility] [place] [address] Scheduled Procedures Name Priority Associated Diagnoses Date/Ti [...] of this encounter Implants Implanted Type Area Shell Molding Roller Blast Operator Device Identifier Shelf Expiration Date Model / Serial / Lot Microtech Sure Clip Implanted:Qty: 2 on 06/03/2020 by Janis Hatch DO at OR [facility] Clip N/A: Colon 04/21/2022 [facility]-F-26-2 35-C-R / / [id number] documented as of this encounter Advance Directives Documents on File Type Date Recorded Patient Commercial Tire Service Technician Expl 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 AND HEALTH CARE POA Power of Food Service Ambassador 04/29/2021 12:00 AM TOM R OF FORENSIC SCIENCE EXAMINER HEALTH CARE POA Advanced Directive 04/01/2021 1:14 [...] Syed Bustos Spouse Emergency Contact Care Teams High Risk Case Manager Relationship Specialty Start Date End Date Vanita Dunn MD [address] [place], [place] [phone] PCP - General Family Medicine 03/16/21 documented as of this encounter
--- OUTSIDE RECORDS SUMMARY | 2023-05-10 19:19 | External Medical Summary ---
Author Name Unknown Address Unknown Organization K0G:LABORATORY [facility] [address] [place] [address] Laboratory Report Ordering Provider Test Date Status JACOB CORBETT 11/01/2021 09:16:00 Final Observation Date Value Abnormality Reference (Units ) Status SYNC LEUKOCYTES IN BLOOD BY AUTOMATED COUNT 11/01/2021 09:16:00 2.68 Below low normal 4.00-10.80 (K/uL) Final Segs 11/01/2021 09:16:00 51.4 40.0-75.0 (%) Final Lymphs % 11/01/2021 09:16:00 29.9 18.0-42.0 (%) Final Monos 11/01/2021 09:16:00 14.2 Above high normal 1.0-11.0 (%) Final Eosinophils 11/01/2021 09:16:00 4.1 0.0-6.0 (%) Final Basos 11/01/2021 09:16:00 0.4 0.0-2.0 (%) Final Absolute Segs 11/01/2021 09:16:00 1.38 Below low normal 1.80-7.70 (K/uL) Final Lymphs, absolute 11/01/2021 09:16:00 0.80 Below low normal 1.00-4.80 (K/ul) Final Monos, Abs 11/01/2021 09:16:00 0.38 0.00-1.10 (K/uL) Final Eos, Abs 11/01/2021 09:16:00 0.11 0.00-0.70 (K/uL) Final Basos, Abs 11/01/2021 09:16:00 0.01 0.00-0.20 (K/uL) Final Performing Location LABORATORY [facility] [address] [place] [address]
--- OUTSIDE RECORDS SUMMARY | 2023-05-10 19:19 | External Medical Summary ---
Author Name Unknown Address Unknown Organization K0G:LABORATORY [facility] [address] [place] [address] Laboratory Report Ordering Provider Test Date Status JACOB CORBETT 11/01/2021 09:16:00 Final Observation Date Value Abnormality Reference (Units ) Status WBC, Total 11/01/2021 09:16:00 2.68 Below low normal 4. 00-10.80 (K/uL) Final RBC 11/01/2021 09:16:00 2.85 Below low normal 3.8 5-5.15 (M/uL) Final Hemoglobin 11/01/2021 09:16:00 7.9 Below low normal 12 .0-15.3 (g/dL) Final HCT 11/01/2021 09:16:00 27.1 Below low normal 36. 0-45.2 (%) Final MCV 11/01/2021 09:16:00 95.1 81.5-97.5 (fL) Final MCH 11/01/2021 09:16:00 27.7 27.0-34.0 (pg) Final MCHC 11/01/2021 09:16:00 29.2 Below low normal 32. 0-36.0 (g/dL) Final RDW 11/01/2021 09:16:00 20.5 Above high normal 11 .5-15.5 (%) Final Platelets 11/01/2021 09:16:00 85 Below low normal 140 -400 (K/uL) Final MPV 11/01/2021 09:16:00 Final Performing Location LABORATORY [facility] [address] [place] [address]
--- OUTSIDE RECORDS SUMMARY | 2023-05-10 19:19 | External Medical Summary ---
Author Name Unknown Address Unknown Organization K01:LABORATORY [facility] - [address] [place] [address] Laboratory Report Ordering Provider Test Date Status JACOB CORBETT 11/01/2021 09:16:00 Final Observation Date Value Abnormality Reference (Units ) Status Iron 11/01/2021 09:16:00 34 33-151 (ug/dL) Final Iron-binding capacity 11/01/2021 09:16:00 272 250-425 (ug/dL) Final Transferrin Sat % 11/01/2021 09:16:00 13 Below low normal 15-55 (%) Final Performing Location LABORATORY C - [address] [place] [address]
--- OUTSIDE RECORDS SUMMARY | 2023-05-10 19:19 | External Medical Summary | Summary of Care ---
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 120 Vial 11 10/02/2019 Active nystatin (NYSTOP) 081594 UNIT/GM powder Apply topically to affected area [...] of Breath, Informant: Pharmacy, Reported on 02/04/2021 DexTransBioTec G6 Market Development Specialist Device Use as directed. To test [...] Strip 3 10/29/2020 Active OneTouch Delica Plus [id number] TESTING once daily 100 Each 3 10/29/2020 [...] as of this encounter (statuses as of 10/29/2021) Active Problems Problem Noted Date Food insecurity 09/20/2021 Overview: Per [facility] Protocol Chronic diastolic (congestive) heart [...] as of this encounter (statuses as of 10/29/2021) Resolved Problems Problem Noted Date Resolved Date [...] pain 01/24/2012 01/17/2017 Genetic Sleep Disorder Research Other*[id number] 05/13/2011 04/07/2016 Obstructive sleep apnea 01/18/2011 12/27/19 [...] as of this encounter (statuses as of 10/29/2021) Immunizations Name Administration Dates Next Due COVID-19 [...] Miscellaneous Notes * Telephone Encounter - Indira Hudson, [facility] - 10/29/2021 4:02 PM EST Received TT from [facility] RN July Poe that patient was contacted by supplier regarding Dexcom (notsure which supplier) and they said it will need to go through a different supplier. Contacted [employer] [facility]. Was informed that patient will now be getting Dexcom supplies through [facility] and they should be reaching out to patient. Patient Phone Numbers Called and spoke with patient- informed her about above. She will contact clinic with any issues. Indira Hudson [facility], Pharm D, BCACP Clinical Pharmacist 10/29/21 4:02 PM documented in this encounter Plan of Treatment Upcoming Encounters Date Type Specialty Care Team Description 11/01/2021 Laboratory Laboratory Processing [facility], [facility] Mobile Home Draw [address] [place] [address] 11/03/2021 Office Visit Gynecology Obstetrics Enrrique Sandhu MD [address] [place] [address] 11/04/2021 Office Visit Cardiology Quyen Canseco CRNP [address] [place] [address] 11/05/2021 Hem/Onc Treatment Hematology Oncology [place], Chair 11 Hem Onc Sc[address]ery [address] [place] [address] 11/08/2021 Office Visit Otolaryngology Dylon Moreno DO [address] [place] [address] 11/10/2021 Office Visit Pharmacy [place], [facility] [address] [place] [address] 11/11/2021 Home Visit Family Medicine Kaylee Barakat, [facility] [address] [place] [address] 11/15/2021 Laboratory Laboratory Processing [facility], [facility] Mobile Home Draw [address] [place] [address] 11/16/2021 Office Visit Family Medicine Vanita Dunn MD [address] [place] [address] 11/25/2021 Home Visit [facility] July Poe, RN [address] [place] [address] 11/26/2021 Hem/Onc Treatment Hematology Oncology [place], Chair 4 Hem Onc Scenery [address] [place] [address] 11/29/2021 Laboratory Laboratory Processing [facility], [facility] Mobile Home Draw [address] [place] [address] 11/30/2021 Home Visit Family Medicine Kaylee Barakat, [facility] [employer] [address] [place] [address] 12/13/2021 Laboratory Laboratory Processing [facility], G[facility] Mobile Home Draw [address] [place] [address] 12/17/2021 Hem/Onc Treatment Hematology Oncology [place], Chair 2 Hem Onc Scenery [address] [place] [address] 12/22/2021 Office Visit Endocrinology Alberta Duque PA-C [address] [place] [address] 12/23/2021 Office Visit Gastroenterology Lyssa Stout CRNP [address] [place] [address] 12/27/2021 Laboratory Laboratory Processing [facility], [facility] Mobile Home Draw [address] [place] [address] 01/04/2022 Office Visit Hematology Oncology Tono Sanchez MD [address] [place] [facility] [place] [address] 01/07/2022 Hem/Onc Treatment Hematology Oncology [place], Chair 1 Hem Onc Scenery [address] [place] [address] 01/10/2022 Laboratory [facility], [facility] Mobile Home Draw [address] [place] [address] 01/24/2022 Laboratory Laboratory [facility], [facility] Mobile Home Draw [address] [place] [address] 01/28/2022 Hem/Onc Treatment Hematology Oncology [place], Chair 1 Hem Onc Scenery [address] [place] [address] 02/07/2022 Laboratory Laboratory Processing [facility], [facility] Mobile Home Draw [address] [place] [address] 02/18/2022 Hem/Onc Treatment Hematology Oncology [place], Chair 1 Hem Onc Scenery [address] [place] [address] 02/21/2022 Laboratory Laboratory Processing [facility], [facility] Mobile Home Draw [address] [place] [address] 03/07/2022 Laboratory Laboratory [facility], [facility] Mobile Home Draw [address] [place], [place] [address] 03/11/2022 Hem/Onc Treatment Hematology Oncology [place], Chair 1 Hem Onc Scenery [address] [place] [address] 03/24/2022 Office Visit Reynaldo Marks MD [address] [place] [address] 04/01/2022 Hem/Onc Treatment Hematology Oncology [place], Chair 1 Hem Onc Scenery [address] [place] [address] 04/22/2022 Hem/Onc Treatment Hematology Oncology [place], Chair 1 Hem Onc Scenery [address] [place] [address] 06/24/2022 Office Visit Sleep Disorders Love Francisco, DO 132 [facility] [place] [address] Scheduled Procedures Name Priority Associated Diagnoses Date/Ti [...] of this encounter Implants Implanted Type Area Local Delivery Driver Device Identifier Shelf Expiration Date Model / Serial / Lot Microtech Sure Clip Implanted:Qty: 2 on 06/03/2020 by Janis aHtch DO at OR [facility] Clip N/A: Colon 04/21/2022 [facility]-F-26-2 35-C-R / / [id number] documented as of this encounter Advance Directives Documents on File Type Date Recorded Patient Dynamics Ax Technical Architect 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 WILL AND HEALTH CARE POA Power of Medical Director/Head Team Physician 04/29/2021 12:00 AM TOM R OF CHANGE CONTROL ANALYST HEALTH CARE POA Advanced Directive 04/01/2021 [...] Syed Bustos Spouse Emergency Contact Care Teams Ocular Care Technologist Relationship Specialty Start Date End Date Vanita Dunn MD [address] [place] [address] PCP - General Family Medicine 03/16/21 documented as of this encounter
--- OUTSIDE RECORDS SUMMARY | 2023-05-10 19:19 | External Medical Summary ---
Author Name Unknown Address Unknown Organization K01:LABORATORY C - [address] [place] [address] Laboratory Report Ordering Provider Test Date Status JACOB CORBETT 11/01/2021 09:16:00 Final Observation Date Value Abnormality Reference (Units ) Status Ferritin 11/01/2021 09:16:00 26 13-150 (ng /mL) Final Performing Location LAB[facility]ORY [facility] - [address] [place] [address]
--- OUTSIDE RECORDS SUMMARY | 2023-05-10 19:19 | External Medical Summary ---
Author Name Unknown Address Unknown Organization K0G:[facility]ORY [facility] [address] [place] [address] Laboratory Report Ordering Provider Test Date Status JACOB CORBETT 11/01/2021 09:16:00 Final Observation Date Value Abnormality Reference (Units ) Status Nucleated erythrocytes/100 leukocytes [Ratio] in Blood by Automated count 11/01/2021 09:16:00 Final Anisocytosis [Presence] in Blood by Light microscopy 11/01/2021 09:16:00 Moderate Abnormal None Seen Final Elliptocytes [Presence] in Blood by Light microscopy 11/01/2021 09:16:00 Few Abnormal None Seen Final Hypochromia [Presence] in Blood by Light microscopy 11/01/2021 09:16:00 Slight Abnormal None Seen Final Dacrocytes [Presence] in Blood by Light microscopy 11/01/2021 09:16:00 Few Abnormal None Seen Final Performing Location LABORATORY [facility] [address] [place] [address]
--- OUTSIDE RECORDS SUMMARY | 2023-05-10 19:19 | External Medical Summary | Summary of Care ---
Author Name Unknown Organization [facility] [place] [address] Care Team Providers Care Precision Lens Polisher Name Role Phone Vanita Dunn MD Primary Care Provid er Reason for Visit * Reason Onset Date Comments FYI 09/17/2021 Medical record r eq ELLEN -ADS Diabetic supply Encounter Details Date Type Department Care Team Description 09/17/2021 Telephone [facility] [address] [place] [address] Vanita Dunn MD [address] [place] [address] FYI (Medical record req ELLEN -ADS Judith... 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 documented as of this encounter (statuses as of 11/01/2021) Medications Medication Sig Dispensed Refills Start Date End Date Status albuterol sulfate (PROVENTIL) (2.5 MG/3ML) 0.083% nebulizer solutionIndications: Pulmonary vascular congestion Inhale 1 Vial via nebulizer every 6 hours as needed for Wheezing. 120 Vial 11 10/02/2019 Active nystatin (NYSTOP) 005219 UNIT/GM powder Apply topically to affected area [...] of Breath, Informant: Pharmacy, Reported on 02/04/2021 DexOcelus G6 Journeyman Electrician Pv Installer Device Use as directed. To test [...] Strip 3 10/29/2020 Active OneTouch Delica Plus [id number] TESTING once daily 100 Each 3 10/29/2020 [...] for Cough. 30 Capsule 1 09/17/2021 Active documented as of this encounter (statuses as of 11/01/2021) Active Problems Problem Noted Date Food insecurity [...] as of this encounter (statuses as of 11/01/2021) Resolved Problems Problem Noted Date Resolved Date [...] pain 01/24/2012 01/17/2017 Genetic Sleep Disorder Research Other*[id number] 05/13/2011 04/07/2016 Obstructive sleep apnea 01/18/2011 12/27/19 [...] as of this encounter (statuses as of 11/01/2021) Immunizations Name Administration Dates Next Due COVID-19 [...] Miscellaneous Notes * Telephone Encounter - THAD Karimi - 09/17/2021 9:12 AM EST ELLEN Sent to [facility] [id number] documented in this encounter Plan of Treatment Upcoming Encounters Date Type Specialty Care Team Description 11/03/2021 Office Visit Gynecology Obstetrics Enrrique Sandhu MD [address] [place] [address] 11/04/2021 Office Visit Cardiology Quyen Canseco CRNP [address] [place] [address] 11/05/2021 Hem/Onc Treatment Hematology Oncology [place], Chair 11 Hem Onc Scenery 200 [facility] [place] [address] 11/08/2021 Office Visit Otolaryngology Dylon Moreno DO [address] [place] [address] 11/10/2021 Office Visit Pharmacy [facility] [address] [place] [address] 11/11/2021 Home Visit Family Medicine Kaylee Barakat, Community Health Help Desk Agent [address] [place] [address] 11/15/2021 Laboratory Laboratory Processing [facility] Mobile Home Draw [address] [place] [address] 11/16/2021 Office Visit Family Medicine Vanita Dunn MD [address] [place] [address] 11/25/2021 Home Visit [facility] July Poe RN [address] [place] [address] 11/26/2021 Hem/Onc Treatment Hematology Oncology [place], Chair 4 Hem Onc Scenery [address] [facility] [facility] [address] 11/29/2021 Laboratory Laboratory Processing [facility] [place] Mobile Home Draw [address] [place] [address] 11/30/[address] [facility] Kaylee Barakat, Community Health Help Desk Agent [address] [place] [address] 12/13/2021 Laboratory Laboratory Processing [facility] [place] Mobile Home Draw [address] [place] [address] 12/17/2021 Hem/Onc Treatment Hematology Oncology [place], Chair 2 Hem Onc Scenery [address] [facility] [address] 12/22/2021 Office Visit Endocrinology Alberta Duque PA-C [address] [place] [address] 12/23/2021 Office Visit Gastroenterology Lyssa Stout CRNP [address] [place] [address] 12/27/2021 Laboratory Laboratory Processing [facility] Mobile Home Draw [address] [place] [address] 01/04/2022 Office Visit Hematology Oncology Tono Sanchez MD [address] [place] [address] 01/07/2022 Hem/Onc Treatment Hematology Oncology [place], Chair 1 Hem Onc Scenery [address] [place] [address] 01/10/2022 Laboratory Laboratory Processing [facility] Mobile Home Draw [address] [place] [address] 01/24/2022 Laboratory Laboratory Processing [facility] Mobile Home Draw [address] [place] [address] 01/28/2022 Hem/Onc Treatment Hematology Oncology [place], Chair 1 Hem Onc Scenery [address] [place] [address] 02/07/2022 Laboratory Laboratory Processing [facility] Mobile Home Draw [address] [place] [address] 02/18/2022 Hem/Onc Treatment Hematology Oncology [place], Chair 1 Hem Onc Scenery [address] [place] [address] 02/21/2022 Laboratory Laboratory Processing [facility] Mobile Home Draw [address] [place] [address] 03/07/2022 Laboratory Laboratory Processing [facility] Mobile Home Draw [address] [place] [address] 03/11/2022 Hem/Onc Treatment Hematology Oncology [place], Chair 1 Hem Onc Scenery [address] [place] [address] 03/24/2022 Office Visit Pulmonary Reynaldo Marquez MD [address] [place] [address] 04/01/2022 Hem/Onc Treatment Hematology Oncology [place], Chair 1 Hem Onc Scenery [address] [place] [address] 04/22/2022 Hem/Onc Treatment Hematology Oncology [place], Chair 1 Hem Onc Scenery [address] [place] [address] 06/24/2022 Office Visit Sleep Disorders Love Francisco, DO [address] [place] [address] Scheduled Procedures Name Priority Associated Diagnoses Date/Ti [...] this encounter Implants Implanted Type Area Crew Leader Gluing Device Identifier Shelf Expiration Date Model / Serial / Lot Microtech Sure Clip Implanted:Qty: 2 on 06/03/2020 by Janis Hatch DO at OR [facility] Clip N/A: Colon 04/21/2022 [facility]-F-26-2 35-C-R / / [id number] documented as of this encounter Advance Directives Documents on File Type Date Recorded 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
--- OUTSIDE RECORDS SUMMARY | 2023-05-10 19:19 | External Medical Summary | Summary of Care ---
Author Name Unknown Organization [facility] Address [place] [address] Care Team Providers Care Powerhouse Mechanic Name Role Phone Vanita Dunn MD Primary Care Provid er Encounter Details Date Type Department Care Team Description 09/23/2021 Scan Encounter Pulmonary Medicine, [facility] [address] [place] [address] Love Francisco, [address] [place] [address] <No scans attached> Allergies Active Allergy Reactions [...] 120 Vial 11 10/02/2019 Active nystatin (NYSTOP) 471318 UNIT/GM powder Apply topically to affected area [...] Informant: Pharmacy, Reported on 02/04/2021 Dexcom G6 Armor Reconnaissance Vehicle Driver Device Use as directed. To test [...] Strip 3 10/29/2020 Active OneTouch Delica Plus [id number] TESTING once daily 100 Each 3 10/29/2020 [...] pain 01/24/2012 01/17/2017 Genetic Sleep Disorder Research Other*[id number] 05/13/2011 04/07/2016 Obstructive sleep apnea 01/18/2011 12/27/19 [...] 06/30/2009 03/28/2012 HTN, goal below 140/90 06/30/2009 07/18/201 2 Dyslipidemia, goal to be determined 06/30/2009 [...] Care Team Description 11/01/2021 Laboratory Laboratory Processing [facility] Mobile Home Draw [address] [place] [address] 11/03/2021 Office Visit Gynecology Obstetrics Enrrique Sandhu MD [address] [place] [address] 11/04/2021 Office Visit Cardiology Quyen Casneco CRNP 132 [facility] [place] [address] 11/05/2021 Hem/Onc Treatment Hematology Oncology [place], Chair 11 Hem Onc Scenery [address] [place] [address] 11/08/2021 Office Visit Otolaryngology Dylon Moreno DO 132 [facility] [place] [address] 11/10/2021 Office Visit Pharmacy [facility] [address] [place] [address] 11/11/2021 Home Visit Family Medicine Kaylee Barakat, Community Health Isotope Technician [address] [place] [address] 11/15/2021 Laboratory Laboratory Processing [facility] Mobile Home Draw [address] [place] [address] 11/16/2021 Office Visit Family Medicine Vanita Dunn MD [address] [place] [address] 11/25/2021 [facility] Visit [facility] July Poe RN [address] [place] [address] 11/26/2021 Hem/Onc Treatment Hematology Oncology [place], Chair 4 Hem Onc Scenery [address] [place] [address] 11/29/2021 Laboratory Laboratory Processing [facility] Mobile Home Draw [address] [place] [address] 11/30/2021 Home Visit Family Medicine Kaylee Barakat, Community Health Isotope Technician [address] [place] [address] 12/13/2021 Laboratory Laboratory Processing [facility] Mobile Home Draw [address] [place] [address] 12/17/2021 Hem/Onc Treatment Hematology Oncology [place], Chair 2 Hem Onc Scenery [address] [place] [address] 12/22/2021 Office Visit Endocrinology Alberta Duque PA-C [address] [place] [address] 12/23/2021 Office Visit Gastroenterology Lyssa Stout CRNP 132 [facility] [place] [address] 12/27/2021 Laboratory Laboratory Processing [facility], [facility] Mobile Home Draw [address] [place] [address] 01/04/2022 Office Visit Hematology Oncology Tono Sanchez MD [address] [place] [address] 01/07/2022 Hem/Onc Treatment Hematology Oncology [place], Chair 1 Hem Onc Scenery [address] [place] [address] 01/10/2022 Laboratory Laboratory Processing [facility] Mobile Home Draw [address] [place] [address] 01/24/2022 Laboratory Laboratory Processing [facility] Mobile Home Draw [address] [place] [address] 01/28/2022 Hem/Onc Treatment Hematology Oncology [place], Chair 1 Hem Onc Scenery [address] [place] [address] 02/07/2022 Laboratory Laboratory Processing [facility] Mobile Home Draw [address] [place] [address] 02/18/2022 Hem/Onc Treatment Hematology Oncology [place], Chair 1 Hem Onc Scenery [address] [address] 02/21/2022 Laboratory Laboratory Processing [facility] Mobile Home Draw [address] [place] [address] 03/07/2022 Laboratory Laboratory Processing [facility] Mobile Home Draw [address] [place] [address] 03/11/2022 Hem/Onc Treatment Hematology Oncology [place], Chair 1 Hem Onc Scenery [address] [place] [address] 03/24/2022 Office Visit Pulmonary [place], Reynaldo Lambert MD [address] [place] [address] 04/01/2022 Hem/Onc Treatment Hematology Oncology [place], Chair 1 Hem Onc Scenery [address] [place] [address] 04/22/2022 Hem/Onc Treatment Hematology Oncology [place], Chair 1 Hem Onc Scenery [address] [place] [address] 06/24/2022 Office Visit Sleep Disorders Love Francisco, 132 [facility] [place] [address] Scheduled Procedures Name Priority Associated Diagnoses Date/Ti [...] of this encounter Implants Implanted Type Area Professor Of Biblical Studies Device Identifier Shelf Expiration Date Model / Serial / Lot Microtech Sure Clip Implanted:Qty: 2 on 06/03/2020 by Janis Hatch DO at OR [facility] Clip N/A: Colon 04/21/2022 [facility]-F-26-2 35-C-R / / [id number] documented as of this encounter Advance Directives Documents on File Type Date Recorded Patient Hide Dyer 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 AND HEALTH CARE POA Power of Livestock Farmworker 04/29/2021 12:00 AM TOM R OF WEATHER ANALYST HEALTH CARE POA Advanced Directive 04/01/2021 [...] Syed Bustos Spouse Emergency Contact Care Teams Powerhouse Mechanic Relationship Specialty Start Date End Date Vanita Dunn MD [address] [place] [address] PCP - General Family Medicine 03/16/21 documented as of this encounter
--- OUTSIDE RECORDS SUMMARY | 2023-05-10 19:20 | External Medical Summary | Summary of Care ---
Author Name Unknown Organization [facility] Address [facility] [place] [address] Care Team Providers Care Education Faculty Member Name Role Phone Vanita Dunn MD Primary Care Provid er Reason for Visit * Reason Comments [facility]: Maintenance Encounter Details Date Type Department Care Team Description 10/28/2021 [facility] Visit [facility], [facility] 132 [facility] [place] [address] July Poe, RN [address] [facility] [place] [address] 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 documented as of this encounter (statuses as of 10/28/2021) Medications Medication Sig Dispensed Refills Start Date End Date Status albuterol sulfate (PROVENTIL) (2.5 MG/3ML) 0.083% nebulizer solutionIndications: Pulmonary vascular congestion Inhale 1 Vial via nebulizer every 6 hours as needed for Wheezing. 120 Vial 11 10/02/2019 Active nystatin (NYSTOP) 436765 UNIT/GM powder Apply topically to affected area [...] Informant: Pharmacy, Reported on 02/04/2021 Dexcom G6 Senior Svp Device Use as directed. To test blood [...] Strip 3 10/29/2020 Active OneTouch Delica Plus [id number] TESTING once daily 100 Each 3 10/29/2020 [...] as of this encounter (statuses as of 10/28/2021) Active Problems Problem Noted Date Food insecurity [...] as of this encounter (statuses as of 10/28/2021) Resolved Problems Problem Noted Date Resolved Date [...] pain 01/24/2012 01/17/2017 Genetic Sleep Disorder Research Other*[id number] 05/13/2011 04/07/2016 Obstructive sleep apnea 01/18/2011 12/27/19 [...] as of this encounter (statuses as of 10/28/2021) Immunizations Name Administration Dates Next Due COVID-19 [...] Reading Time Taken Comments Blood Pressure 114/68 10/28/2021 10:25 AM EST Pulse 76 10/28/2021 10:25 AM EST Temperature 36.1 C (96.9 F) 10/28/2021 10:[address] Respiratory Rate 18 10/28/2021 10:25 AM EST Oxygen Saturation 97% 10/28/2021 10:25 AM EST Inhaled Oxygen Concentration - - [...] Progress Notes * July Poe RN - 10/28/2021 8:06 AM EST [facility] Bi[facility] Specialist Visit Date: 10/28/2021 Time: 10:06 AM Name: Shaina Bustos : 1955 Current Concerns: Pt seen for return RNCM visit Cough has improved since last visit ENT appt on 11/08 Vaginal bleeding continues on a daily basis mostly - has small amt in brief this morning Has ADULT PAROLE OFFICER appt next week on 11/03 Blood sugars have been ranging 170-411 Has been checking with fingerstick glucometer once or twice a day 266 this am Still waiting to hear if dexcom is going to be covered through a different supplier TT sent to [facility] for f/u Pt has had a decrease in appetite and states that she just generally does feel well sometimes Has been drinking 1 or 2 Ensure a day Cg reports they have been giving Lactulose twice a day and has at least two soft bowel movements a day Physical Exam: BP 114/68 | Pulse 76 | Temp 36.1 C (96.9 F) | Resp 18 | SpO2 97% [...] for congestion. Eyes: Negative. Respiratory: Positive for cough. Cardiovascular: Positive for leg swelling. Gastrointestinal: Negative. Endocrine: Negative. Genitourinary: Positive for vaginal bleeding. Musculoskeletal: Positive for arthralgias and gait problem (non-ambulatory). Skin: Negative. Neurological: Positive for weakness. Medication Reconciliation: (See medication list) Does patient take medications as ordered: Yes Patient Well Being: PHQ2/9: No questionnaires available. No change in living situation. Pt is chair bound and uses svetlana lift for transfers. Has cg 5 days a week for 8-9 hrs each day Advanced Care Planning: Living Will. and Healthcare POA. Patient's Goals of Care: 1. Attend son's wedding in February 2. Feel better 3. Find out what vaginal bleeding is from Reinforcement/Education: DIABETES: -Blood sugar testing schedule: Twice [...] a day 5 servings fruit/vegetable per day Educated on home safety: Create a fall [...] exercises that will be right for you. Reinforced safety education and fall prevention. and [...] and sinus issues F/U next week with ADULT PAROLE OFFICER for vaginal bleeding F/U with heme/onc Home Interventions Provided: Home Intervention: Other; Evaluation Reinforced current Plan of Care, including self-management and medication regimen Patient's 'Red Flags': 1. Increased SOB 2. Feelings of dizziness/lightheaded 3. Change in mental status Patient Needs to Remember: Call [facility] at with any new or worsening health concerns or problems, red flag symptoms. Referrals Needed: Other none Follow Up: Is there cellular connectivity/connectivity in the home? Yes Does the patient have internet in the home? Yes Patient encouraged to call the intake phone number for all urgent but not emergent issues. Is the patient new to [employer] at Home within the last 30 days? No, Assess appropriateness for upcoming telehealth visits. Cancel telehealth visits & schedule home visit with care hospitality team member(s)as indicated. Provider is in agreement with Plan of Care: Yes Scheduled to follow up with patient in 2 weeks with EMILE and 2 weeks after with RNCM. July Poe RN 10/28/2021 10:06 AM documented in this encounter Plan of Treatment Upcoming Encounters Date Type Specialty Care Team Description 10/29/2021 Office Visit [facility]iology [facility] [address] 11/01/2021 Laboratory Laboratory Processing [facility] Mobile Home Draw [address] [place] [address] 11/03/2021 Office Visit Gynecology Obstetrics Adigun, Enrrique, MD [address] [place] [address] 11/05/2021 Hem/Onc Treatment Hematology Oncology [place], Chair 11 Hem Onc Scenery [address] [place] [address] 11/08/2021 Office Visit Otolaryngology Dylon Moreno DO [address] [place] [address] 11/10/2021 Office Visit Pharmacy [facility] [address] [place] [address] 11/11/2021 Home Visit Family Medicine Kaylee Barakat, Community Health Kiln Cleaner [address] [place] [address] 11/15/2021 Laboratory Laboratory Processing [facility], [facility] Mobile Home Draw [address] [place] [address] 11/16/2021 Office Visit Family Medicine Vanita Dunn MD [address] [place] [address] 11/25/2021 Home Visit [facility] [place] July Poe, UMA [address] [place] [address] 11/26/2021 Hem/Onc Treatment Hematology Oncology [place], Chair 4 Hem Onc Scenery [address] [place] [address] 11/29/2021 Laboratory Laboratory Processing [facility], [facility] Mobile Home Draw [address] [place] [address] 11/30/2021 Home Visit Family Medicine Kaylee Barakat, Community Health Kiln Cleaner [address] [place] [address] 12/13/2021 Laboratory Laboratory Processing [facility] Mobile Home Draw [address] [place] [address] 12/17/2021 Hem/Onc Treatment Hematology Oncology [place], Chair 2 Hem Onc [facility] [address] [place] [address] 12/22/2021 Office Visit Endocrinology Alberta Duque PA-C [address] [place] [address] 12/23/2021 Office Visit Gastroenterology Lyssa Stout CRNP [address] [place] [address] 12/27/2021 Laboratory Laboratory Processing [facility] Mobile Home Draw [address] [place] [address] 01/04/2022 Office Visit Hematology Oncology Tono Sanchez MD [address] [place] [address] 01/07/2022 Hem/Onc Treatment Hematology Oncology [place], Chair 1 Hem Onc [place] [address] [place] [address] 01/10/2022 Laboratory Laboratory Processing [facility] Mobile Home Draw [address] [place] [address] 01/24/2022 Laboratory Laboratory Processing [facility] Mobile Home Draw [address] [place] [address] 01/28/2022 Hem/Onc Treatment Hematology Oncology [place], Chair 1 Hem Onc Scenery [address] [place] [address] 02/07/2022 Laboratory Laboratory Processing [facility] Mobile Home Draw [address] [place] [address] 02/18/2022 Hem/Onc Treatment Hematology Oncology [place], Chair 1 Hem Onc Scenery [address] [place] [address] 02/21/2022 Laboratory Laboratory Processing [facility], [facility] Mobile Home Draw [address] [place] [address] 03/07/2022 Laboratory Laboratory Processing [facility], [facility] Mobile Home Draw [address] [place] [address] 03/11/2022 Hem/Onc Treatment Hematology Oncology [place], Chair 1 Hem Onc Scenery [address] [place] [address] 03/24/2022 Office Visit Pulmonary Reynaldo Marquez MD [address] [place] [address] 04/01/2022 Hem/Onc Treatment Hematology Oncology [place], Chair 1 Hem Onc Scenery [address] [place] [address] 04/22/2022 Hem/Onc Treatment Hematology Oncology [place], Chair 1 Hem Onc Scenery [address] [place] [address] 06/24/2022 Office Visit Sleep Disorders Love Francisco, DO 132 [facility] [place] [address] Scheduled Procedures Name Priority Associated Diagnoses Date/Ti me ESOPHAGOGASTRODUODENOSCOPY ( EGD), FLEXIBLE, TRANSORAL, DIAGNOSTIC Recall Esophagitis COLONOSCOPY FLEXIBLE PROXIMAL DIAGNOSTIC Recall History of colonic polyps Health Maintenance Due Date Last Done Comments DIABETES-EYE EXAM 06/12/2019 06/12/2018, , 06/12/2018, Additional history exists DIABETES-URINE ALBUMIN/CREATININE EVERY 12 MONTHS 01/12/2020 01/11/2019, 02/03/2017, 08/25/2015, Additional history exists Dexa Scan 2020 Zoster Vaccines (3 of 3) 06/23/2020 04/28/2020, [...] 09/23/2022 09/23/2021, 09/14/2021, 08/09/2021, Additional history exists Pneumococcal Vaccine: 65+ Years (2 of 2 - PPSV23) 05/02/2024 05/02/2019, 06/01/2010 COLONOSCOPY-EVERY 5 YRS AGES 18-100 06/03/2025 06/03/2020, [...] of this encounter Implants Implanted Type Area Chief Embalmer Device Identifier Shelf Expiration Date Model / Serial / Lot Microtech Sure Clip Implanted:Qty: 2 on 06/03/2020 by Janis Hatch DO at OR [facility] Clip N/A: Colon 04/21/2022 [facility]-F-26-2 35-C-R / / [id number] documented as of this encounter Advance Directives Documents on File Type Date Recorded 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 Conditioning Supervisor 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
--- OUTSIDE RECORDS SUMMARY | 2023-05-10 19:20 | External Medical Summary | Summary of Care ---
Author Name Unknown Organization [place] [address] Care Team Providers Care Vice President Tax Name Role Phone Vanita Dunn MD Primary Care Provid er Reason for Visit * Reason Onset Date Comments Referral 10/21/2021 Encounter Details Date Type Department Care Team Description 10/21/2021 Telephone Gynecology/Obstetrics [facility] [address] [place] [address] Susan Jara MD [address] [place] [address] Referral 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 documented as of this encounter (statuses as of 10/27/2021) Medications Medication Sig Dispensed Refills Start Date End Date Status albuterol sulfate (PROVENTIL) (2.5 MG/3ML) 0.083% nebulizer solutionIndications :Pulmonary vascular congestion Inhale 1 Vial via nebulizer every 6 hours as needed for Wheezing. 120 Vial 11 0 Active nystatin (NYSTOP) 035209 UNIT/GM powder Apply topically to affected area [...] Informant: Pharmacy, Reported on 02/04/2021 Dexcom G6 Ceramic Tile Installer Device Use as directed. 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 04/04/2019 Primary insomnia 04/04/2019 Recurrent major depressive [...] as of this encounter (statuses as of 10/27/2021) Resolved Problems Problem Noted Date Resolved Date [...] pain 01/24/2012 01/17/2017 Genetic Sleep Disorder Research Other*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 Gildardo Mason RN * Telephone Encounter - Franca Dean RN - 10/22/2021 2:40 PM EST Does this pt need to be scheduled in [place] d/t needing candace lift? Pt has appt scheduled for OBGYN office in [place] on 10/27/2021. Please clarify if pt still needs to be seen in [place]. T/C to pt. Pt unsure of appts. [...] Encounters Date Type Specialty Care Team Description 10/27/2021 Office Visit Gynecology Obstetrics Maggie Munguia PA-C [address] [place] [address] 10/28/2021 Home Visit [facility] July Poe RN [address] [place] [address] 10/29/2021 Office Visit Cardiology Quyen Canseco CRNP [address] [place] [address] 11/01/2021 Laboratory Laboratory Processing [facility], [facility] Mobile Home Draw [address] [place] [address] 11/05/2021 Hem/Onc Treatment Hematology [place]cology [place], Chair [address] Hem Onc Sc[address]ery [address] [facility] [address] 11/08/2021 Office Visit Otolaryngology Dylon Moreno DO [address] [place] [address] 11/10/2021 Office Visit Pharmacy [place], [address] [address] 11/15/2021 Laboratory Laboratory Processing [facility] Mobile Home Draw [address] [place] [address] 11/16/2021 Office Visit Family Medicine Vanita Dunn MD [address] [place] [address] 11/26/2021 Hem/Onc Treatment Hematology Oncology [place], Chair 4 Hem Onc Scenery [address] [place] [address] 11/29/2021 Laboratory Laboratory Processing [facility] Mobile Home Draw [address] [place] [address] 11/30/2021 Home Visit Family [facility] Kaylee Barakat, [facility] [place] [address] [place] [address] 12/13/2021 Laboratory Laboratory Processing [facility], [facility] Mobile Home Draw [address] [place] [address] 12/17/2021 Hem/Onc Treatment Hematology Oncology [place], Chair 2 Hem Onc Scenery [address] [place] [address] 12/22/2021 Office Visit Endocrinology Alberta Duque PA-C [address] [place] [address] 12/23/2021 Office [facility] [place] [address] 12/27/2021 Laboratory Laboratory Processing [facility] Mobile Home Draw [address] [place] [address] 01/04/2022 Office Visit Hematology Oncology Tono Sanchez MD [address] [facility] [place] [address] 01/07/2022 Hem/Onc Treatment Hematology [place]cology [place], Chair 1 Hem Onc Scenery [address] [place] [address] 01/10/2022 Laboratory Laboratory Processing [facility] Mobile Home Draw [address] [place] [address] 01/24/2022 Laboratory Laboratory Processing [facility] Mobile Home Draw [address] [place] [address] 01/28/2022 Hem/Onc Treatment Hematology Oncology [place], Chair 1 Hem Onc Scenery [address] [place] [address] 02/07/2022 Laboratory Laboratory Processing [facility] Mobile Home Draw [address] [place] [address] 02/18/2022 Hem/Onc Treatment Hematology Oncology [place], Chair 1 Hem Onc Scenery [address] [place] [place] [address] 02/21/2022 Laboratory Laboratory Processing [facility] Mobile Home Draw [address] [place] [address] 03/07/2022 Laboratory Laboratory Processing [facility] Mobile Home Draw [address] [place] [address] 03/11/2022 Hem/Onc Treatment Hematology Oncology [place], Chair 1 Hem Onc Scenery [address] [place] [address] 03/24/2022 Office Visit Pulmonary Reynaldo Marquez MD [address] [place] [address] 04/01/2022 Hem/Onc Treatment Hematology [place]cology [place], Chair 1 Hem Onc Scenery [address] [place] [address] 04/22/2022 Hem/Onc Treatment Hematology [place], Chair 1 Hem Onc Scenery [address] [place] [address] 06/24/2022 Office Visit Sleep Disorders Love Francisco, [address] [place] [address] Scheduled Procedures Name Priority Associated Diagnoses Date/Ti [...] of this encounter Implants Implanted Type Area Legal Practice Manager Device Identifier Shelf Expiration Date Model / Serial / Lot Microtech Sure Clip Implanted:Qty: 2 on 06/03/2020 by Janis Hatch DO at OR [facility] Clip N/A: Colon 04/21/2022 [facility]-F-26-2 35-C-R / / [id number] documented as of this encounter Advance Directives Documents on File Type Date Recorded 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
--- OUTSIDE RECORDS SUMMARY | 2023-05-10 19:20 | External Medical Summary | Summary of Care ---
Author Name Unknown Organization [facility] [place] [address] Care Team Providers Care Ux Developer Designer Name Role Phone Vanita Dunn MD Primary Care Provid er Reason for Visit * Reason Onset Date Comments Referral 10/21/2021 Encounter Details Date Type Department Care Team Description 10/21/2021 Telephone Gynecology/Obstetrics [facility] [address] [place] [address] Susan Jara MD [address] [place] [address] Referral Allergies Active Allergy Reactions [...] 120 Vial 11 0 Active nystatin (NYSTOP) 044839 UNIT/GM powder Apply topically to affected area [...] Informant: Pharmacy, Reported on 02/04/2021 Dexcom G6 Crimper Assembler Device Use as directed. To test [...] Strip 3 1 Active OneTouch Delica Plus Gfbsyz35C TESTING once daily 100 Each 3 1 [...] pain 01/24/2012 01/17/2017 Genetic Sleep Disorder Research Other*[id number] 05/13/2011 04/07/2016 Obstructive sleep apnea 01/18/2011 12/27/19 [...] from the original note were not included. July Poe RN [facility] Scientific Informatics Analyst/Ob Nurse [place] Please call pt and get appt scheduled - refer to encounter from 10/21. She does need a candace lift for transfers. Thank you. T/C to patient, patient reports being sick and request a call back at later date. Gildardo Mason RN * Telephone Encounter - Franca Dean RN - 10/22/2021 2:40 PM EST Does this pt need to be scheduled in [place] d/t needing candace lift? Pt has appt scheduled for OBGYN office in [place] on 10/27/2021. Please clarify if pt still needs to be seen in [place]. T/C to pt. Pt unsure of appts. [...] Visit Gynecology Obstetrics Maggie Munguia PA-C [address] [place] [address] 10/28/2021 Home Visit [facility] July Poe RN [address] [place] [address] 10/29/2021 Office Visit Cardiology Quyen Canseco CRNP [address] [place] [address] 11/01/2021 Laboratory Laboratory Processing [facility], [facility] Mobile Home Draw [address] [place], [place] [address] 11/05/2021 Hem/Onc Treatment Hematology [place]cology [place], Chair 11 Hem Onc Scenery [address] [place] [address] 11/08/2021 Office Visit Otolaryngology Dylon Moreno DO [address] [place] [address] 11/10/2021 Office Visit Pharmacy [facility] [address] [place] [address] 11/15/2021 Laboratory Laboratory Processing [facility], [facility] Mobile Home Draw [address] [place] [address] 11/16/2021 Office Visit Family Medicine Vanita Dunn MD [address] [place] [address] 11/26/2021 Hem/Onc Treatment Hematology Oncology [place], Chair 4 Hem Onc Scenery [address] [place], [place] [address] 11/29/2021 Laboratory Laboratory Processing [facility], [facility] Mobile Home Draw [address] [place] [address] 11/30/2021 Home Visit Family Medicine Kaylee Barakat, [facility] Pharmacy Technician Instructor [address] [place] [address] 12/13/2021 Laboratory Laboratory Processing [facility], [facility] Mobile Home Draw [address] [place] [address] 12/17/2021 Hem/Onc Treatment Hematology Oncology [place], Chair 2 Hem Onc Scenery [address] [place] [address] 12/22/2021 Office Visit Endocrinology Alberta Duque PA-C [address] [place] [address] 12/23/2021 Office Visit Gastroenterology Lyssa Stout CRNP [address] [place] [address] 12/27/2021 Laboratory Laboratory Processing [facility] Mobile Home Draw [address] [place] [address] 01/04/2022 Office Visit Hematology Oncology Tono Sanchez MD [address] [place] [address] 01/07/2022 Hem/Onc Treatment Hematology Oncology [place], Chair 1 Hem Onc Scenery [address] [place] [address] 01/10/2022 Laboratory Laboratory Processing [facility] Mobile Home Draw [address] [place] [address] 01/24/2022 Laboratory Laboratory Processing [facility] Mobile Home Draw [address] [place] [address] 01/28/2022 Hem/Onc Treatment Hematology Oncology [place], Chair 1 Hem Onc Scenery [address] [place] [address] 02/07/2022 Laboratory Laboratory Processing [facility] Mobile Home Draw [address] [place] [address] 02/18/2022 Hem/Onc Treatment Hematology Oncology [place], Chair 1 Hem Onc Scenery [address] [facility] [place] [place] [address] 02/21/2022 Laboratory Laboratory Processing [facility] Mobile Home Draw [address] [place] [address] 03/07/2022 Laboratory Laboratory Processing [facility] Mobile Home Draw [address] [place] [address] 03/11/2022 Hem/Onc Treatment Hematology [place]cology [place], Chair 1 Hem Onc Scenery [address] [place] [address] 03/24/2022 Office Visit Pulmonary Reynaldo Marquez MD [address] [place] [address] 04/01/2022 Hem/Onc Treatment Hematology [place]cology [place], Chair 1 Hem Onc Scenery [address] [place] [address] 04/22/2022 Hem/Onc Treatment Hematology [place]cology [place], Chair 1 Hem Onc Scenery [address] [place] [address] 06/24/2022 Office Visit Sleep Disorders Love Francisco, DO [address] [place] [address] Scheduled Procedures Name Priority Associated Diagnoses Date/Ti [...] of this encounter Implants Implanted Type Area Information Technology Account Manager Device Identifier Shelf Expiration Date Model / Serial / Lot Microtech Sure Clip Implanted:Qty: 2 on 06/03/2020 by Janis Hatch DO at OR 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
--- OUTSIDE RECORDS SUMMARY | 2023-05-10 19:20 | External Medical Summary | Summary of Care ---
Author Name Unknown Organization [place] [address] Care Team Providers Care Medical Claims Representative Name Role Phone Vanita Dunn MD Primary Care Provid er Reason for Visit * Reason Comments PAP Encounter Details Date Type Department Care Team Description 10/27/2021 Office Visit Gynecology[facility]Obstetics [facility] [place] [id number] Maggie Munguia PA-C [address] [place] [address] PMB (postmenopausal bleeding)* Allergies Active Allergy Reactions Severity Noted Date [...] 120 Vial 11 10/02/2019 Active nystatin (NYSTOP) 607120 UNIT/GM powder Apply topically to affected area [...] Informant: Pharmacy, Reported on 02/04/2021 Dexcom G6 Cheese Cutter Device Use as directed. To test blood [...] Strip 3 10/29/2020 Active OneTouch Delica Plus [id number] TESTING once daily 100 Each 3 10/29/2020 [...] Noted Date Food insecurity 09/20/2021 Overview: Per [facility] Protocol Chronic diastolic (congestive) heart [...] pain 01/24/2012 01/17/2017 Genetic Sleep Disorder Research Other*[id number] 05/13/2011 04/07/2016 Obstructive sleep apnea 01/18/2011 12/27/19 [...] Sign Reading Time Taken Comments Blood Pressure 120/76 10/27/2021 1:08 PM EST Pulse - - Temperature - - Respiratory [...] as of this encounter Progress Notes * Maggie Munguia PA-C - 10/27/2021 1:38 PM EST SUBJECTIVE: Shaina Bustos is a 66 year old female. Chief Complaint Patient presents with PAP HPI: 66 year old female who presents today with caregiver Torrie for PMB in wheelchair. Patientreports PMB x 3 months initially presenting for EMB. Caregiver indicated candace lift would be neededto complete exam. Patient reports PMB starting in July 2021. She was initially treated for UTI when symptoms started with accompanying dysuria. She was found to have MRSA UTI. She reports symptoms of dysuria resolved but she continues to experience vaginal bleeding. Last urine culture 09/23/2021negative. Caregiver voiced correlation between bleeding and ABX prescribed for UTI. She states thatafter finishing ABX vaginal bleeding returned despite negative urine culture. She reports vaginal bleeding occurring intermittently. Heavy in nature at times. Caregiver states upon changing patient, bleeding is noted to be coming from vagina. Patient underwent transvaginal pelvic ultrasound on 10/13/2021. Endometrial strip 4 mm, heterogenous. No significant free fluid in pelvis. Caregiver reports blood on ultrasound at time. Menopause about 20 years ago to her knowledge. She reports no h/o PMB up until now. No h/o abnormal pap smear. Last pap smear 2017 NILM. Patient currently following with Heme for ongoing thrombocytopenia and iron deficiency anemia. Plt 69K, Hgb 7.8. She reports also recently recovering from pneumonia. She was not hospitalized. Reports recovering. She requires CPAP to sleep at night due sleep apnea. Denies fever, or chills. Denies sob, or chest pain. Denies abd pain, n/v, diarrhea or constipation. Denies vaginal irritation, itching, burning, odor, or significant discharge. Denies dysuria, urgency, or frequency. Medications: Current Outpatient Medications Medication Sig Dispense Refill albuterol sulfate (PROVENTIL) (2.5 MG/3ML) 0.083% nebulizer solution Inhale 1 Vial via nebulizer every 6 hours as needed for Wheezing. 120 Vial 11 nystatin (NYSTOP) 458715 UNIT/GM powder Apply topically to affected area [...] of Breath.) 3 mL 10 Dexcom G6 Cheese Cutter Device Use as directed. To test blood [...] daily 100 Strip 3 OneTouch Delica Plus [id number] TESTING once daily 100 Each 3 Nitroglycerin [...] Take 1 tablet daily. 90 Tab 1 Ibuprofen 800 MG Oral Tablet (Motrin) Take 1 Tab by mouth daily as needed for Pain, Severe. with food for pain (Patient taking differently: Take 800 mg by mouth daily as needed for Pain, Severe. with food for pain. In patient home but highly advised to stop due to bleed risk associated with use.) 30 Tab 3 Spironolactone 25 MG Oral Tablet (Aldactone) Take [...] No current facility-administered medications for this visit. Allergies: Review of patient's allergies indicates: Allergen Reactions Adhesive Tape Itching Pcn [Penicillins] Rash Perflutren Protein A Microsph Definity-lower back pain Patient Active Problem List Diagnosis Code Venous insufficiency I87.2 Spinal stenosis of lumbar region without neurogenic claudication M48.061 Cerebral palsy (HCC) G80.9 HTN, goal below 130/80 I10 NG (nonalcoholic steatohepatitis) K75.81 Venous stasis dermatitis of both lower extremities I87.2 DDD (degenerative disc disease), lumbar M51.36 Lymphedema I89.0 Type 2 diabetes mellitus with hemoglobin A1c goal of less than 8.0% ([facility]) E11.9 Vitamin D deficiency E55.9 Restrictive lung disease J98.4 Obesity, morbid (more than 100 lbs over ideal weight or BMI > 40) ([facility]) E66.01 Dyslipidemia E78.5 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 R39.81 Acquired hypothyroidism E03.9 Chronic pain syndrome G89.4 MEDICATION USE AGREEMENT [id number] Cirrhosis of liver (HCC) K74.60 THAD on [...] heart failure (HCC) I50.32 Food insecurity Z59.41 Past Medical History: [...] less than 7.0% ([facility]) 09/26/2013 ICD-10 update of inactive term Type 2 diabetes mellitus with hemoglobin A1c goal of less than 8.0% ([facility]) 09/26/2013 ICD-10 update of inactive term OB History Para Term AB Living 1 1 1 1 SAB IAB Ectopic Multiple Live Births 1 # Outcome Date GA Lbr Mike/2nd Weight Sex Delivery Anes PTL Lv 1 Term M CS-LVertical TOM Obstetric Comments c /s x 1 Past Surgical History: Procedure Laterality Date BONE DEBRIDEMENT, FIRST 20 CM2 Right 04/16/2020 DEBRIDEMENT SKIN SUBCUTANEOUS TISSUE MUSCLE AND BONE performed by Josh Vazquez MD at OR [facility] DELIVERY 04/20/1982 COLONOSCOPY 04/21/2009 repeat in 10 years COLONOSCOPY, DIAGNOSTIC (RECTUM) 10/04/2016 normal bx, repeat 10 yrs/[facility] COLONOSCOPY, DIAGNOSTIC (RECTUM) N/A 06/03/2020 internal hemorrhoids/biopsies show adenomatous polyps/recall 5 years/COLONOSCOPY FLEXIBLE PROXIMAL DIAGNOSTIC performed by Janis Hatch DO at OR [facility] COLONOSCOPY, DIAGNOSTIC (RECTUM) 03/17/2020 poor prep / [facility] DENTAL SURGERY PROCEDURE NEC wisdom teeth x 4 DILATION AND CURETTAGE (D&C) EGD, FLEXIBLE, DIAGNOSTIC 10/04/2016 gastritis/[facility] EGD, FLEXIBLE, DIAGNOSTIC 01/11/2018 eso varices, retained food, repeat 1 yr/[facility] EGD, FLEXIBLE, DIAGNOSTIC N/A 06/03/2020 severe erosive esophagitis/non-bleeding grade II esophageal varices/gastritis/biopsies show inflammatory changes/repeat 3-4 months/ESOPHAGOGASTRODUODENOSCOPY (EGD), FLEXIBLE, TRANSORAL, DIAGNOSTIC per formed by Janis Hatch DO at OR [facility] EGD, FLEXIBLE, DIAGNOSTIC 11/27/2019 eso varices, portal hypertensive gastropathy, gastritis / [facility] EGD, FLEXIBLE, DIAGNOSTIC N/A 08/05/2020 large amount of food in stomach/repeat 1.5 years/ESOPHAGOGASTRODUODENOSCOPY (EGD), FLEXIBLE, TRANSORAL, DIAGNOSTIC performed by Janis Hatch DO at OR [facility] EGD, FLEXIBLE, DIAGNOSTIC N/A 03/10/2021 ESOPHAGOGASTRODUODENOSCOPY (EGD), FLEXIBLE, TRANSORAL, DIAGNOSTIC performed by Kris Blankenship MD at ENDOSCOPY [facility] IR VENOUS ACCESS MEDIPORT 10/05/2020 PELVIS/HIP JOINT SURGERY NEC teenager aid in walking REPAIR/GRAFT ACHILLES TENDON age 40 aid in walking Family History Problem Relation Age of Onset Heart Disorder Father of [place] at age 61 Diabetes Father Heart Disorder Mother of [place] age 72 Heart Disorder Sister Mi at age 46 Hypertension Sister Cancer No significant family history Arthritis No significant family history Mental Disorder No significant family history Stroke No significant family history Review of Systems: CONSTITUTIONAL ROS: No change in weight, No fevers, sweats, or chills CARDIOVASCULAR ROS: No chest pain, No shortness of breath GASTROINTESTINAL ROS: No abdominal pain, No change in bowel habits, No nausea, vomiting, diarrhea, or constipation. GENITO-URINARY FEMALE ROS: See HPI. No STDs, no dysuria, no irregular menstruation, No urgency and no vaginal discharge MSK/EXTREMITIES ROS: No pain, redness or swelling on the joints OBJECTIVE: BP 120/76 General: awake, alert, and oriented x 3, normal affect, no acute distress Heart: regular rate & rhythm, no murmurs, and no gallops Lungs: chest symmetric with normal AP diameter, no chest wall tenderness, expiratory wheezing in upper lung tuttle bilaterally Pelvic exam: unable to complete due to patient mobility issues CBC 10/18/2021: WBC 4.00 - 10.80 K/uL 2.40Low RBC 3.85 - 5.15 M/uL 2.70Low HGB 12.0 - 15.3 g/dL 7.8Low HCT 36.0 - 45.2 % 25.5Low MCV 81.5 - 97.5 fL 94.4 MCH 27.0 - 34.0 pg 28.9 MCHC 32.0 - 36.0 g/dL 30.6Low RDW 11.5 - 15.5 % 19.8High Plt 140 - 400 K/uL 64Low Ultrasound pelvis 10/19/2021: Transabdominal scanning was performed. The uterus measures [...] IMPRESSION Stripe appears heterogenous. Biopsy is recommended. ASSESSMENT/PLAN: PMB (postmenopausal bleeding) (Primary) - Patient will need EMB for further evaluation of PMB given concern for malignancy. Pelvic exam andEMB unable to be completed today unfortunately given the need for candace lift onto exam table. This clinic does not have one available. Patient unable to ambulate onto table on her own and patient safety a concerns even with assistance in the absence of candace lift. - Advised return to office for evaluation by physician. We discussed will likely need hysteroscopy with D&C and EUA in the absence of candace lift. Patient comfortable with plan and course of action. Maggie Munguia PA-C documented in this encounter Nursing Notes * DEBBIE Tsang - 10/27/2021 1:08 PM EST Pt here for annual with family member. Pt has been having post menopausal bleeding for months now -family member reports a candace lift will be required for exam documented in this encounter Plan of Treatment Upcoming Encounters Date Type Specialty Care Team Description 10/28/2021 Home Visit [facility] July Poe, RN [address] [place] [address] 10/29/2021 Office Visit Cardiology Quyen Canseco CRNP [address] [place] [address] 11/01/2021 Laboratory Laboratory Processing [facility] Mobile Home Draw [address] [place] [address] 11/03/2021 Office Visit Gynecology Obstetrics Enrrique Sandhu MD [address] [place] [address] 11/05/2021 Hem/Onc Treatment Hematology Oncology Maryellen, Chair 11 Hem Onc Sc[address] [place] [address] 11/08/2021 Office Visit Otolaryngology Dylon Moreno DO [address] [place] [address] 11/10/2021 Office Visit Pharmacy [facility] [address] [place] [address] 11/15/2021 Laboratory Laboratory Processing [facility], [facility] Mobile Home Draw [address] [place] [address] 11/16/2021 Office Visit Family Medicine Vanita Dunn MD [address] [place] [address] 11/26/2021 Hem/Onc Treatment Hematology Oncology Maryellen, Chair 4 Hem Onc Scenery [address] [place] [address] 11/29/2021 Laboratory Laboratory Processing [facility], [facility] Mobile Home Draw [address] [place] [address] 11/30/2021 Home Visit Family Medicine Kaylee Barakat, Community Health Registration Manager [address] [place] [address] 12/13/2021 Laboratory Laboratory Processing [facility] Mobile Home Draw [address] [place] [address] 12/17/2021 Hem/Onc Treatment Hematology Oncology [place], Chair 2 Hem Onc [facility] [address] [place] [address] 12/22/2021 Office Visit Endocrinology Alberta Duque PA-C [address] [place] [address] 12/23/2021 Office Visit Gastroenterology Lyssa Stout CRNP [address] [place] [address] 12/27/2021 Laboratory Laboratory Processing [facility] Mobile Home Draw [address] [place] [address] 01/04/2022 Office Visit Hematology Oncology Tono Sanchez MD [address] [place] [address] 01/07/2022 Hem/Onc Treatment Hematology Oncology [place], Chair 1 Hem Onc Scene [address] [place] [address] 01/10/2022 Laboratory Laboratory Processing [facility] Mobile Home Draw [address] [place] [address] 01/24/2022 Laboratory Laboratory Processing [facility] Mobile Home Draw [address] [place] [address] 01/28/2022 Hem/Onc Treatment Hematology Oncology [place], Chair 1 Hem Onc Scenery [address] [place] [address] 02/07/2022 Laboratory Laboratory Processing [facility], [facility] Mobile Home Draw [address] [place] [address] 02/18/2022 Hem/Onc Treatment Hematology Oncology [place], Chair 1 Hem Onc Scenery [address] [place] [address] 02/21/2022 Laboratory Laboratory Processing [facility], [facility] Mobile Home Draw [address] [place] [address] 03/07/2022 Laboratory Laboratory Processing [facility], [facility] Mobile Home Draw [address] [place] [address] 03/11/2022 Hem/Onc Treatment Hematology Oncology [place], Chair 1 Hem Onc Scenery [address] [place] [address] 03/24/2022 Office Visit Pulmonary Reynaldo Marquez MD [address] [place] [id number] 04/01/2022 Hem/Onc Treatment Hematology Oncology [place], Chair 1 Hem Onc Scenery [address] [place] [address] 04/22/2022 Hem/Onc Treatment Hematology Oncology [place], Chair 1 Hem Onc Scenery [address] [place] [address] 06/24/2022 Office Visit Sleep Disorders Love Francisco, DO [address] [facility] [place] [address] Scheduled Procedures Name Priority Associated Diagnoses Date/Ti [...] of this encounter Implants Implanted Type Area Change Management Expert Device Identifier Shelf Expiration Date Model / Serial / Lot Microtech Sure Clip Implanted:Qty: 2 on 06/03/2020 by Janis Hatch DO at OR [facility] Clip N/A: Colon 04/21/2022 [facility]-F-26-2 35-C-R / / [id number] documented as of this encounter Visit Diagnoses Diagnosis PMB (postmenopausal bleeding)- Primary Postmenopausal bleeding documented in this encounter Advance Directives Documents on File Type Date Recorded Patient Private Tutors And Teachers 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 WILL LIVING WILL AND HEALTH CARE POA [employer] 04/29/2021 12:00 AM TOM R [email or web address] [facility] POA Advanced Directive 04/01/2021 1:14 [...] Bustos Spouse Emergency Contact Care Teams Medical Claims Representative Relationship Specialty Start Date End Date Vanita Dunn MD [address], [place] [id number] PCP - General Family Medicine 03/16/21 documented as of this encounter
--- OUTSIDE RECORDS SUMMARY | 2023-05-10 19:21 | External Medical Summary | Summary of Care ---
Author Name Unknown Organization [facility] [place] [address] Care Team Providers Care Van Owner Operator Name Role Phone Vanita Dunn MD Primary Care Provid er Reason for Visit * Reason Onset Date Comments Referral 10/21/2021 Encounter Details Date Type Department Care Team Description 10/21/2021 Telephone Gynecology/Obstetrics [facility] [address] [place] [address] Susan Jara MD [address] [place] [address] Referral 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 documented as of this encounter (statuses as of 10/22/2021) Medications Medication Sig Dispensed Refills Start Date End Date Status albuterol sulfate (PROVENTIL) (2.5 MG/3ML) 0.083% nebulizer solutionIndications: Pulmonary vascular congestion Inhale 1 Vial via nebulizer every 6 hours as needed for Wheezing. 120 Vial 11 10/02/2019 Active nystatin (NYSTOP) 498257 UNIT/GM powder Apply topically to affected area [...] Informant: Pharmacy, Reported on 02/04/2021 Dexcom G6 Inside Wireman Device Use as directed. To test blood [...] Strip 3 10/29/2020 Active OneTouch Delica Plus [id number] TESTING once daily 100 Each 3 10/29/2020 [...] tablet daily. 90 Tab 1 05/11/2021 Active Oxybutynin Chloride 5 MG Oral Tablet (Ditropan) TAKE 1 TABLET BY MOUTH TWICE DAILY 180 Tab 1 05/13/2021 Active Ibuprofen 800 MG Oral Tablet (Motrin)Indications: [...] as directed 60 Each 5 10/06/2021 Active documented as of this encounter (statuses as of 10/22/2021) Active Problems Problem Noted Date Food insecurity [...] as of this encounter (statuses as of 10/22/2021) Resolved Problems Problem Noted Date Resolved Date [...] pain 01/24/2012 01/17/2017 Genetic Sleep Disorder Research Other*[id number] 05/13/2011 04/07/2016 Obstructive sleep apnea 01/18/2011 12/27/19 [...] as of this encounter (statuses as of 10/22/2021) Immunizations Name Administration Dates Next Due COVID-19 [...] encounter Miscellaneous Notes * Telephone Encounter - Franca Dean RN - 10/22/2021 2:40 PM EST Does this pt need to be scheduled in [place] d/t needing candace lift? Pt has appt scheduled for OBGYN office in [place] on 10/27/2021. Please clarify if pt still needs to be seen in [place]. T/C to pt. Pt unsure of appts. [...] Visit Gynecology Obstetrics Maggie Munguia PA-C [address] [place] [address] 10/28/2021 Home Visit [facility] [place] July Poe RN [address] [place] [address] 10/29/2021 Office Visit Cardiology Quyen Canseco CRNP [address] [place] [address] 11/01/2021 Laboratory Laboratory Processing [facility] Mobile Home Draw [address] [place] [address] 11/05/2021 Hem/Onc Treatment Hematology Oncology [place], Chair 11 Hem Onc Scenery [address] [place] [address] 11/08/2021 Office Visit Otolaryngology Dylon Moreno DO [address] [place] [address] 11/10/2021 Office Visit Pharmacy [place] [address] [place] [address] 11/15/2021 Laboratory Laboratory Processing [facility] Mobile Home Draw [address] [place] [address] 11/16/2021 Office Visit Family Medicine Vanita Dunn MD [address] [place] [address] 11/26/2021 Hem/Onc Treatment Hematology Oncology [place], Chair 4 Hem Onc Scenery [address] [facility] [place] [address] 11/29/2021 Laboratory Laboratory Processing [facility] Mobile Home Draw [address] [place] [address] 11/30/2021 Home Visit Family Medicine Kaylee Barakat, Community Health Pathologist [address] [place] [address] 12/13/2021 Laboratory Laboratory Processing [facility] Mobile Home Draw [address] [place] [address] 12/17/2021 Hem/Onc Treatment Hematology Oncology [place], Chair 2 Hem Onc Scenery [address] [place] [address] 12/22/2021 Office Visit Endocrinology Alberta Duque PA-C [address], [place] [id number] 12/23/2021 Office Visit Gastroenterology Lyssa Stout CRNP [address] [place] [address] 12/27/2021 Laboratory Laboratory Processing [facility], [facility] Mobile Home Draw [address] [place] [address] 01/04/2022 Office Visit Hematology Oncology [facility] [address] [facility] [address] 01/07/2022 Hem/Onc Treatment Hematology Oncology [place], Chair 1 Hem Onc [address] [facility] [address] 01/10/2022 Laboratory Laboratory Processing c, [facility] Mobile Home Draw [address] [place] [address] 01/24/2022 Laboratory Laboratory Processing [facility], [facility] Mobile Home Draw [address] [place] [address] 01/28/2022 Hem/Onc Treatment Hematology Oncology [place], Chair 1 Hem Onc Scenery [address] [place] [address] 02/07/2022 Laboratory Laboratory Processing c, [facility] Mobile Home Draw [address] [place] [address] 02/18/2022 Hem/Onc Treatment Hematology Oncology [place], Chair 1 Hem Onc Scenery [address] [place] [address] 02/21/2022 Laboratory Laboratory Processing [facility], [facility] Mobile Home Draw [address] [place] [address] 03/07/2022 Laboratory Laboratory Processing [facility], [facility] Mobile Home Draw [address] [place] [address] 03/11/2022 Hem/Onc Treatment Hematology Oncology [place], Chair 1 Hem Onc Scenery [address] [place] [address] 03/24/2022 Office Visit Pulmonary Reynaldo Marquez MD [address] [place] [id number] 04/01/2022 Hem/Onc Treatment Hematology Oncology [place], Chair 1 Hem Onc Scenery [address] [place] [address] 04/22/2022 Hem/Onc Treatment Hematology Oncology [place], Chair 1 Hem Onc Scenery [address] [place] [address] 06/24/2022 Office Visit Sleep Disorders Love Francisco, DO [address] [place] [address] Scheduled Procedures Name Priority Associated Diagnoses Date/Ti [...] of this encounter Implants Implanted Type Area Drawer In Jacquard Loom Device Identifier Shelf Expiration Date Model / Serial / Lot Microtech Sure Clip Implanted:Qty: 2 on 06/03/2020 by Janis Hatch DO at OR [facility] Clip N/A: Colon 04/21/2022 [facility]-F-26-2 35-C-R / / [id number] documented as of this encounter Advance Directives Documents on File Type Date Recorded Patient Tin Stacker 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 WILL AND HEALTH CARE POA Power of Aviation Technician 04/29/2021 12:00 AM TOM R OF BORDER MACHINE OPERATOR HEALTH CARE POA Advanced Directive [...] Syed Bustos Spouse Emergency Contact Care Teams Van Owner Operator Relationship Specialty Start Date End Date Vanita Dunn MD [address] [place] [address] PCP - General Family Medicine 03/16/21 documented as of this encounter
--- OUTSIDE RECORDS SUMMARY | 2023-05-10 19:21 | External Medical Summary | Summary of Care ---
Author Name Unknown Organization [place] [address] Care Team Providers Care Camp Manager Name Role Phone Vanita Dunn MD Primary Care Provid er Reason for Visit * Reason Comments eRx-Medication Refill Encounter Details Date Type Department Care Team Description 10/22/2021 Refill [place] [id number] [place] [address] Vanita Dunn MD [address] [place] [address] Allergies Active Allergy Reactions Severity Noted Date Comments Adhesive Tape Itching 04/29/2020 Penicillins Rash 02/12/2008 Perflutren Protein A Microsph 2019 Definity-lower back pain documented as of this encounter (statuses as of 10/26/2021) Medications Medication Sig Dispensed Refills Start Date End Date Status albuterol sulfate (PROVENTIL) (2.5 MG/3ML) 0.083% nebulizer solutionIndications :Pulmonary vascular congestion Inhale 1 Vial via nebulizer every 6 hours as needed for Wheezing. 120 Vial 11 0 Active nystatin (NYSTOP) 171101 UNIT/GM powder Apply topically to affected area [...] Informant: Pharmacy, Reported on 02/04/2021 Dexcom G6 Mail Messenger Contractor Device Use as directed. To test blood [...] Strip 3 1 Active OneTouch Delica Plus [id number] TESTING once daily 100 Each 3 1 [...] TWICE DAILY 180 Tablet 1 2 Active Oxybutynin Chloride 5 MG Oral Tablet (Ditropan) TAKE 1 TABLET BY MOUTH TWICE DAILY 180 Tab 1 1 10/26/19 22 Discontinued documented as of this encounter (statuses as of 10/26/2021) Active Problems Problem Noted Date Food insecurity [...] as of this encounter (statuses as of 10/26/2021) Resolved Problems Problem Noted Date Resolved Date [...] pain 01/24/2012 01/17/2017 Genetic Sleep Disorder Research Other*[id number] 05/13/2011 04/07/2016 Obstructive sleep apnea 01/18/2011 12/27/19 [...] as of this encounter (statuses as of 10/26/2021) Immunizations Name Administration Dates Next Due COVID-19 [...] encounter Miscellaneous Notes * Telephone Encounter - Bob Rapp MD - 10/26/2021 2:41 PM EST Signed Prescriptions: Disp Refills Oxybutynin Chloride 5 MG Oral Tablet (Ditr*180 Ta*1 Sig: TAKE 1 TABLET BY MOUTH TWICE DAILYAuthorizing Provider: BOB RAPP * Telephone Encounter - Sandra Vincent LPN - 10/26/2021 2:40 PM EST Pending Prescriptions: Disp Refills Oxybutynin Chloride 5 MG Oral Tablet (Dit*180 Ta*1 Sig: TAKE 1 TABLET BY MOUTH TWICE DAILY * Telephone Encounter - Aubrey Reis [facility] - 10/23/2021 9:36 AM EST Pending Prescriptions: Disp Refills Oxybutynin Chloride 5 MG Oral Tablet (Ditr*180 Ta*1 Sig: TAKE 1 TABLET BY MOUTH TWICE DAILY * Telephone Encounter - Aubrey Reis [facility] - 10/23/2021 9:36 AM EST Refill pharmacists currently not authorized to approve refills for the pended medication(s) per refill protocol. Please approve if appropriate. Thanks, Aubrey Reis, Elizabeth.Ph. Clinical Pharmacist [facility] [phone] 10/23/2021,9:36 AM Pending Prescriptions: Disp Refills Oxybutynin Chloride 5 MG Oral Tablet (Ditr*180 Ta*1 Sig: TAKE 1 TABLET BY MOUTH TWICE DAILY Last Visit: 09/20/2021 Next Visit: 11/16/2021 If no future appointments scheduled, and last appointment is greater than a year ago, please schedule patient for a follow-up appointment Last date the medication was ordered: 05-13-21 Pharmacy: [id number] [facility] Is this request for a controlled substance?No [...] Visit Gynecology Obstetrics Maggie Munguia PA-C [address] [facility] [place] [id number] 10/28/2021 Home Visit [facility] July Poe RN [address] [facility] [place] [address] 10/29/2021 Office Visit Cardiology Quyen Canseco CRNP [address] [place] [address] 11/01/2021 Laboratory Laboratory Processing [facility] Draw [address] [place] [address] 11/05/2021 Hem/Onc Treatment Hematology Oncology [place], Chair [address] [place] [address] 11/08/2021 Office Visit Otolaryngology Dylon Moreno DO [address] [place] [address] 11/10/2021 Office Visit Pharmacy [facility] [address] [place] [address] 11/15/2021 Laboratory Laboratory Processing [facility] Draw [address] [place] [address] 11/16/2021 Office Visit Family Medicine Vanita Dunn MD [address] [place] [address] 11/26/2021 Hem/Onc Treatment Hematology Oncology [place], Chair 4 Hem Onc Sc[address]ery [address] [place] [address] 11/29/2021 Laboratory Laboratory Processing [facility] Draw [address], [place] [id number] 11/30/2021 Home Visit Family Medicine Kaylee Barakat, [facility] [employer] Worker [address] [place] [address] 12/13/2021 Laboratory Laboratory Processing c, [facility] Mobile [facility] Draw [address] [place] [address] 12/17/2021 Hem/Onc Treatment Hematology Oncology [place], Chair 2 Hem Onc Scenery [address] [facility] [place] [address] 12/22/2021 Office Visit Endocrinology Alberta Duque PA-C [address] [place] [address] 12/23/2021 Office Visit Gastroenterology Lyssa Stout CRNP [address] [place] [address] 12/27/2021 Laboratory Laboratory Processing [facility] Draw [address] [place] [address] 01/04/2022 Office Visit Hematology Oncology Tono Sanchez MD [address] [place] [address] 01/07/2022 Hem/Onc Treatment Hematology Oncology [place], Chair 1 Hem On[address] [place] [address] 01/10/2022 Laboratory Laboratory Processing [facility] Draw [address] [place] [address] 01/24/2022 Laboratory Laboratory Processing [facility] Draw [address] [place] [address] 01/28/2022 Hem/Onc Treatment Hematology Oncology [place], Chair 1 Hem [address] [place] [address] 02/07/2022 Laboratory Laboratory Processing [facility] Draw [address] [place] [address] 02/18/2022 Hem/Onc Treatment Hematology Oncology [place], Chair 1 Hem Onc Scen[address] [place] [address] 02/21/2022 Laboratory Laboratory Processing [facility] Draw [address] [place] [address] 03/07/2022 Laboratory Laboratory Processing [facility] Draw [address] [place] [address] 03/11/2022 Hem/Onc Treatment Hematology Oncology [place], Chair [address] Hem Onc [address] [place] [address] 03/24/2022 Office Visit Pulmonary Reynaldo Marquez MD [address] [place] [address] 04/01/2022 Hem/Onc Treatment Hematology Oncology [place], Chair 1 Hem Onc Scen[address] [place] [address] 04/22/2022 Hem/Onc Treatment Hematology Oncology [place], Chair 1 Hem Onc Scenery [address] [place] [address] 06/24/2022 Office Visit Sleep Disorders Love Francisco, DO [address] [facility] [place] [address] Scheduled Procedures Name Priority Associated Diagnoses Date/Ti [...] this encounter Implants Implanted Type Area Superintendent Distribution Device Identifier Shelf Expiration Date Model / Serial / Lot [employer] Sure Clip Implanted:Qty: 2 on 06/03/2020 by Janis Hatch DO at OR [facility] Clip N/A: Colon 04/21/2022 [facility]-F-[id number] 35-C-[id number] / / [id number] documented as of this encounter Advance Directives Documents on File Type Date Recorded Patient Horse Racing Analyst 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 WILL LIVING WILL AND HEALTH CARE POA [facility] 04/29/2021 12:00 AM TOM Johnson [facility] POA Advanced [...] Syed Bustos Spouse Emergency Contact Care Teams Camp Manager Relationship Specialty Start Date End Date Vanita Dnun MD [address] [place] [address] PCP - General Family Medicine 03/16/21 documented as of this encounter
--- OUTSIDE RECORDS SUMMARY | 2023-05-10 19:22 | External Medical Summary | Summary of Care ---
Author Name Unknown Organization [facility] [place] [address] Care Team Providers Care Fiberglass Technician Name Role Phone Vanita Dunn MD Primary Care Provid er Reason for Visit * Reason Comments Follow Up Encounter Details Date Type Department Care Team Description 10/22/2021 Office Visit Sleep Disorders Ctr [facility] [address] [place] [phone] Love Francisco [address] [facility] [place] [address] Obstructive sleep apnea*; Nocturnal hypoxemia; SOB (shortness of breath); Restrictive lung disease Allergies Active Allergy Reactions [...] 120 Vial 11 10/02/2019 Active nystatin (NYSTOP) 466901 UNIT/GM powder Apply topically to affected area [...] Informant: Pharmacy, Reported on 02/04/2021 Dexcom G6 Patient Registration Representative Device Use as directed. To test [...] Strip 3 10/29/2020 Active OneTouch Delica Plus [id number] TESTING once daily 100 Each 3 10/29/2020 [...] pain 01/24/2012 01/17/2017 Genetic Sleep Disorder Research Other*[id number] 05/13/2011 04/07/2016 Obstructive sleep apnea 01/18/2011 12/27/19 [...] Reading Time Taken Comments Blood Pressure 120/82 10/22/2021 1:12 PM EST Pulse 70 10/22/2021 1:12 PM EST Temperature 35.6 C (96.1 F) 10/22/2021 1:12 PM ES T Respiratory Rate 20 10/22/2021 1:12 PM EST Oxygen Saturation 92% 10/22/2021 1:12 PM EST ra, rest Inhaled Oxygen Concentration - - Weight - - Height 149.9 cm (4' 11") 10/22/2021 1:12 PM EST Body Mass Index - - documented in [...] this encounter Patient Instructions * Patient Instructions* Lovelisa Doecorona Francisco DO - 10/22/2021 1:52 PM EST Mask fitting ordered; [facility] should contact you for this. Try mask liners (such as REMzzz's) if still having irritation from mask. Try increasing humidity setting on your device. Can also add separate humidifier to bedroom. Try nasal saline gel spray. documented in this encounter Progress Notes * Love Francisco DO - 10/22/2021 1:26 PM EST Sleep Medicine Follow-Up HISTORY: Shaina Bustos is a 66 year old female for follow up of severe THAD. Initially diagnosed with sleep apnea after presenting with snoring. PSG 2007: AHI 33. PAP titration 08/27/2013: BiPAP 18/10 cmH2O with 2 L/min oxygen. Seen 06/22/21: Using BiPAP 18/10 cmH2O with 2 L/min oxygen ( states he sets the oxygen "to the middle", unsure if this is actually a setting of 2 L/min). BiPAP was making screeching noises. [place] 9. Residual AHI 3.1 on BiPAP 18/10 [...] hypoxia with BiPAP & 2 L/min oxygen. She was switched to NIV about 1 month ago. Data from her NIV device is not available for today's visit (DME attempted to get data from her device this morning, but was unable to, so will need to try again). The mask is bothering her face (rash & scabbing). Snoring on PAP: no Daytime napping: yes, dozing off. Drowsy driving: N/A Interface: FFM (AirFit or similar) Dry nose or dry mouth: yes, nose bleeding Use humidifier? yes Rash from mask: yes She has been coughing a lot (recovering from PNA, per nurse). [place] Sleepiness Scale: 11 [place] Sleepiness Scale Question 10/22/2021 1:15 PM EST - Filed by Janett Moya LPN What is the chance you will doze off in the following situation? Sitting and reading Moderate chance of dozing Watching TV High chance of dozing Sitting inactive in a public place, such as a theater or meeting No chance of dozing As a passenger in a car for an hour without a break No chance of dozing Lying down to rest in the afternoon when circumstances permit High chance of dozing When sitting and talking to someone No chance of dozing When sitting quietly after lunch without alcohol High chance of dozing In a car, while stopped for a few minutes in traffic No chance of dozing Score (range: 0 - 24) 11 CPAP Compliance: Report from NIV unavailable at time of appointment. Equipment: DME Provider is [facility]. Uses a NIV. Patient Active Problem List Diagnosis Code Venous [...] BMI > 40) ([facility]) E66.01 Dyslipidemia E78.5 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 R39.81 Acquired hypothyroidism E03.9 Chronic pain syndrome G89.4 MEDICATION USE AGREEMENT [id number] Cirrhosis of liver (HCC) K74.60 THAD on CPAP G47.33, Z99.89 Wheelchair dependent Z99.3 DM type 2 with diabetic peripheral neuropathy (HCC) E11.42 Primary insomnia F51.01 Recurrent major depressive disorder, in partial remission ([facility]) F33.41 Impaired mobility and ADLs Z74.09, Z78.9 Gastroesophageal reflux disease K21.9 Fibromyalgia M79.7 Thrombocytopenia (HCC) D69.6 Iron deficiency anemia due to chronic blood loss D50.0 Esophageal varices (HCC) I85.00 Portal hypertensive gastropathy (HCC) K76.6, K31.89 Chronic diastolic (congestive) heart failure (HCC) I50.32 Food insecurity Z59.41 Outpatient Medications Marked as Taking for the 10/22/21 encounter (Office Visit) with Love Francisco, DO Medication Sig Disposable Brief X-Large Use as directed Budesonide-Formoterol Fumarate 160-4.5 MCG/ACT Inhalation Aerosol (Symbicort) Inhale 2 Puffs bymouth 2 times a day. Dexcom G6 Sensor use as directed to test blood sugar 4 times daily. change sensor every 10 days Benzonatate 100 MG Oral Capsule (Tessalon Perles) Take 1 Capsule by mouth 3 times a day as needed for Cough. Furosemide 20 MG Oral Tablet (Lasix) Take 1 Tablet by mouth daily as needed (lower extremity swelling). EDEMA Lactulose 10 GM/15ML Oral Solution (Constulose) Take 30mL by mouth twice daily, titrate dose for effect of 3-5 bowel movements daily traMADol HCl 50 MG Oral Tablet (Ultram) Take 1 Tablet by mouth 2 times a day as needed for Pain, Severe. Aspirin 81 MG Oral Tablet Chewable CHEW AND SWALLOW 1 TABLET BY MOUTH ONCE DAILY Atorvastatin Calcium 80 MG Oral Tablet (Lipitor) TAKE 1 TABLET BY MOUTH AT BEDTIME Isosorbide Mononitrate ER 30 MG Oral Tablet Extended Release 24 Hour (Imdur) TAKE 1 TABLET BY MOUTH ONCE DAILY BD Pen Needle Mini U/F 31G X 5 MM (Insulin Pen Needle) USE TO INJECT INSULIN FOUR TIMES DAILY. Escitalopram Oxalate 20 MG Oral Tablet (Lexapro) TAKE 1 TABLET BY MOUTH ONCE DAILY Linzess 290 MCG Oral Capsule (linaCLOtide) TAKE 1 CAPSULE BY MOUTH ONCE DAILY BEFORE BREAKFAST Fluticasone Propionate 50 MCG/ACT Nasal Suspension (Flonase) USE 2 SPRAYS IN EACH NOSTRIL ONCE DAILY DIRECTED Levothyroxine Sodium 175 MCG Oral Tablet (Levoxyl) Take 1 Tab by mouth daily. (at least 30 min prior to breakfast or other meds) Pantoprazole Sodium 20 MG Oral Tablet Delayed Release (Protonix) TAKE 2 TABLETS BY MOUTH TWICE DAILY Potassium Chloride ER 10 MEQ Oral Tablet Extended Release TAKE 1 TABLET BY MOUTH ONCE DAILY WITH FOOD traZODone HCl 50 MG Oral Tablet (Desyrel) TAKE 1 TABLET ONCE DAILY AT BEDTIME Gabapentin 300 MG Oral Capsule (Neurontin) TAKE 1 CAPSULE BY MOUTH EVERY MORNING, 1 CAPSULE MIDDAY AND 2 CAPSULES IN THE EVENING. May take extra dose am and mid day if needed for pain - total of 6 a day max metFORMIN HCl ER 500 MG Oral Tablet Extended Release 24 Hour (Glucophage XR) Take one tablet bymouth daily with a meal Docusate Sodium 100 MG Oral Capsule (Colace) TAKE 1 CAPSULE BY MOUTH ONCE DAILY Spironolactone 25 MG Oral Tablet (Aldactone) Take 2 Tabs by mouth daily. Ibuprofen 800 MG Oral Tablet (Motrin) Take 1 Tab by mouth daily as needed for Pain, Severe. with food for pain (Patient taking differently: Take 800 mg by mouth daily as needed for Pain, Severe. with food for pain. In patient home but highly advised to stop due to bleed risk associated with use.) Oxybutynin Chloride 5 MG Oral Tablet (Ditropan) TAKE 1 TABLET BY MOUTH TWICE DAILY Nadolol 40 MG Oral Tablet (Corgard) Take 1 tablet daily. Trulicity 4.5 MG/0.5ML Subcutaneous Solution Pen-injector (Dulaglutide) Inject one pen (4.5 mg)under the skin once weekly NovoLOG FlexPen 100 UNIT/ML Subcutaneous Solution Pen-injector Inject under the skin three times a day before meals. 32 Units at breakfast, 36 Units before lunch, 36 Units before supper MEDICAL INSTRUCTIONS Please de-access patient's port. Please flush with 10 mL of NS, followed by 500 units (5 mL) of heparin. BiPAP every night at bedtime. Nitroglycerin 0.4 MG Sublingual Tablet Sublingual (Nitrostat) Place 1 Tab under the tongue every 5 minutes as needed for Pain, Chest. up to 3 doses in 15 minutes OneTouch Delica Plus [id number] TESTING once daily OneTouch Verio In Vitro Strip (Glucose Blood) TESTING once daily Lidocaine-Prilocaine 2.5-2.5 % External Cream (Emla) Apply topically to affected area as neededfor Other (for port). APPLY TO SKIN OVER MEDIPORT & COVER 1HR PRIOR TO ACCESSING. Dexcom G6 Patient Registration Representative Device Use as directed. To test blood sugars 4 times a day Dx E11.9 Dexcom G6 Transmitter Use as directed. To test blood sugars 4 times a day. Change every 90 days. Dx E11.9 Ipratropium-Albuterol 0.5-2.5 (3) MG/3ML Inhalation Solution (DUONEB) Inhale 3 mL via nebulizer4 times a day. (Patient taking differently: Inhale 3 mL via nebulizer 4 times a day as needed for Shortness of Breath.) Albuterol Sulfate (ALBUTEROL HFA) 108 (90 BASE) MCG/ACT inhaler Inhale 2 Puffs by mouth every 4hours as needed for Cough or Wheezing. With spacer nystatin (NYSTOP) 234205 UNIT/GM powder Apply topically to affected area 3 times a day. albuterol sulfate (PROVENTIL) (2.5 MG/3ML) 0.083% nebulizer solution Inhale 1 Vial via nebulizer every 6 hours as needed for Wheezing. PHYSICAL EXAM: BP 120/82 | Pulse 70 | Temp 35.6 C (96.1 F) (Tympanic) | Resp 20 | Ht 1.499 m (4' 11") | SpO2 92% Comment: ra, rest | BMI 50.49 kg/m | BSA 2.17 m General: alert, no acute distress, in motor scooter Head: NC/AT Face: scabbing of bridge of nose, + aarti-oral rash in distribution consistent with where FFM would sit on her face. Heart: regular rate and rhythm, no murmurs appreciated Lungs: no wheezing or rales noted. Diminished breath sounds especially in left lower lung field. Skin: warm and dry Neuro: speech clear and appropriate ASSESSMENT/PLAN: Obstructive sleep apnea - severe by AHI criteria, associated with nocturnal hypoxemia - Routine cleaning and change of supplies as needed. - Rash, scabbing, and skin irritation from mask. Mask fitting ordered (foam interface or low-profile FFM). Try mask liners (such as REMzzz's) if still having irritation from mask. - DME: [facility] [place] - Nose bleeds: Try increasing humidity setting. Can also add separate humidifier to bedroom. Try nasal saline gel spray. Hepatic dz/thrombocytopenia likely also contribute to easy bleeding. She has areferral to see ENT, but has not yet been scheduled (request check-out staff to schedule this for her today if possible). - compliance data requested through DME for her current NIV device; request DME fax compliance report to office. Phone call once data is available. Nocturnal hypoxemia - continue oxygen 2 L/min via NIV with all sleep. Follow-up with Sleep Medicine as scheduled. Love Francisco DO documented in this encounter Nursing Notes * Janett Moya LPN - 10/22/2021 1:07 PM EST Pt is here for f/u THAD on BIPAP. [place] Sleepiness Scale Question 10/22/2021 1:15 PM EST - Filed by Jaentt Moya LPN What is the chance you will doze off in the following situation? Sitting and reading Moderate chance of dozing Watching TV High chance of dozing Sitting inactive in a public place, such as a theater or meeting No chance of dozing As a passenger in a car for an hour without a break No chance of dozing Lying down to rest in the afternoon when circumstances permit High chance of dozing When sitting and talking to someone No chance of dozing When sitting quietly after lunch without alcohol High chance of dozing In a car, while stopped for a few minutes in traffic No chance of dozing Score (range: 0 - 24) 11 documented in this encounter Plan of Treatment Upcoming Encounters Date Type Specialty Care Team Description 10/27/2021 Office Visit Gynecology Obstetrics Maggie Munguia PA-C [address] [place] [address] 10/28/2021 [facility] [address] 10/29/2021 Office Visit Cardiology Quyen Canseco CR[facility] [address] [facility] [address] 11/01/2021 Laboratory Laboratory Processing [facility] Draw [address], [place] [id number] 11/05/2021 Hem/Onc Treatment Hematology Oncology [place], Chair 11 Hem Onc Scenery [address] [facility] [facility] [address] 11/08/2021 Office Visit Otolaryngology Dylon Moreno, DO [address] [place] [address] 11/10/2021 Office Visit [facility] [address] [place] [address] 11/15/2021 Laboratory Laboratory Processing [facility] Draw [address] [place] [address] 11/16/2021 Office Visit Family Medicine Vanita Dunn MD [address] [place] [address] 11/26/2021 Hem/Onc Treatment Hematology Oncology [place], Chair 4 Hem Onc Scenery [address] [place] [address] 11/29/2021 Laboratory Laboratory Processing [facility] Draw [address] [place] [address] 11/30/2021 Home Visit Family Medicine Kaylee Barakat, Community [facility] Compensation Programs Manager [address] [place] [address] 12/13/2021 Laboratory Laboratory Processing c, [facility] Draw [address] [place] [address] 12/17/2021 Hem/Onc Treatment Hematology [place]cology [place], Chair 2 Hem Onc Scenery [address] [place] [address] 12/22/2021 Office Visit Endocrinology Alberta Duque PA-C [address], [place] [id number] 12/23/2021 Office Visit Gastroenterology Lyssa Stout, CHAIRMAN & CEO [address] [place] [address] 12/27/2021 Laboratory Laboratory Processing [facility] Draw [address] [place] [address] 01/04/2022 Office Visit Hematology Oncology Tono Sanchez MD [address] [place] [address] 01/07/2022 Hem/Onc Treatment Hematology Oncology [place], Chair 1 Hem Onc Scenery [address] [place] [address] 01/10/2022 Laboratory Laboratory Processing [facility] Draw [address] [place] [address] 01/24/2022 Laboratory Laboratory Processing [facility] Draw [address] [place] [address] 01/28/2022 Hem/Onc Treatment Hematology Oncology [place], Chair 1 Hem Onc Scenery [address] [facility] [place], [place] [address] 02/07/2022 Laboratory Laboratory Processing [facility] Draw [address], [place] [id number] 02/18/2022 Hem/Onc Treatment Hematology Oncology [place], Chair 1 Hem Onc Scenery [address] [facility] [place] [address] 02/21/2022 Laboratory Laboratory Processing [facility] [place] [facility] Draw [address] [place] [address] 03/07/2022 Laboratory Laboratory Processing [facility] Draw [address] [place] [address] 03/11/2022 Hem/Onc Treatment Hematology [place], Chair 1 Hem Onc Scenery [address] [place], [place] [address] 03/24/2022 Office Visit Pulmonary Reynaldo Marquez MD [address] [place] [address] 04/01/2022 Hem/Onc Treatment Hematology Oncology [place], Chair 1 Hem Onc Scenery [address] [place] [address] 04/22/2022 Hem/Onc Treatment Hematology Oncology [place], Chair 1 Hem Onc Scenery [address] [place], [place] [address] 06/24/2022 Office Visit Sleep Disorders Love Francisco, DO [address] [facility] [address] Scheduled Procedures Name Priority Associated Diagnoses Date/Ti [...] of this encounter Implants Implanted Type Area Terrazzo Mechanic Helper Device Identifier Shelf Expiration Date Model / Serial / Lot [employer] Sure Clip Implanted:Qty: 2 on 06/03/2020 by Janis Hatch DO at OR [facility] Clip N/A: Colon 04/21/2022 [id number]-[id number] / / [id number] documented as of this encounter Visit Diagnoses Diagnosis Obstructive sleep apnea- Primary Obstructive sleep apnea (adult) (pediatric) Nocturnal hypoxemia Hypoxemia SOB (shortness of breath) Shortness of breath Restrictive lung disease Other diseases of lung, not elsewhere classified documented in this encounter Advance Directives Documents on File Type Date Recorded Patient Small Products Ii Assembler 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 WILL AND HEALTH CARE POA Power of Curator 04/29/2021 12:00 AM [facility] Advanced Directive 04/01/2021 [...] Agents on File Name Relationship Healthcare Agent [facility] Communication ySed Bustos Spouse Emergency Contact Care Teams Fiberglass Technician Relationship Specialty Start Date End Date Vanita Dunn MD [address] [place] [address] PCP - General Family Medicine 03/16/21 documented as of this encounter
--- OUTSIDE RECORDS SUMMARY | 2023-05-10 19:23 | External Medical Summary | Summary of Care ---
Author Name Unknown Organization [place] [address] Care Team Providers Care Research Computing Specialist Name Role Phone Vanita Dunn MD Primary Care Provid er Reason for Visit * Reason Comments [facility]: Acute Encounter Details Date Type Department Care Team Description 10/21/2021 [facility] Visit [facility], [facility] [address] [facility] [place] [address] July Poe, RN 132 [facility] [place] [address] Advanced care planning/counseling discussion* Allergies Active Allergy Reactions Severity Noted Date Comments Adhesive Tape Itching 04/29/2020 Penicillins Rash 02/12/2008 Perflutren Protein A Microsph 2019 Definity-lower back pain documented as of this encounter (statuses as of 10/21/2021) Medications Medication Sig Dispensed Refills Start Date End Date Status albuterol sulfate (PROVENTIL) (2.5 MG/3ML) 0.083% nebulizer solutionIndications: Pulmonary vascular congestion Inhale 1 Vial via nebulizer every 6 hours as needed for Wheezing. 120 Vial 11 10/02/2019 Active nystatin (NYSTOP) 910690 UNIT/GM powder Apply topically to affected area [...] of Breath, Informant: Pharmacy, Reported on 02/04/2021 DexBooster G6 Repair Order Clerk Device Use as directed. To test [...] Strip 3 10/29/2020 Active OneTouch Delica Plus [id number] TESTING once daily 100 Each 3 10/29/2020 [...] as of this encounter (statuses as of 10/21/2021) Active Problems Problem Noted Date Food insecurity [...] as of this encounter (statuses as of 10/21/2021) Resolved Problems Problem Noted Date Resolved Date [...] pain 01/24/2012 01/17/2017 Genetic Sleep Disorder Research Other*[id number] 05/13/2011 04/07/2016 Obstructive sleep apnea 01/18/2011 12/27/19 [...] as of this encounter (statuses as of 10/21/2021) Immunizations Name Administration Dates Next Due COVID-19 [...] Reading Time Taken Comments Blood Pressure 110/60 10/21/2021 8:43 AM EST Pulse 80 10/21/2021 8:43 AM EST Temperature 36.8 C (98.2 F) 10/21/2021 8:43 AM ES T Respiratory Rate 18 10/21/2021 8:43 AM EST Oxygen Saturation 92% 10/21/2021 8:43 AM EST Inhaled Oxygen Concentration - - [...] Progress Notes * July Poe RN - 10/21/2021 8:27 AM EST [facility] [employer] [facility] [employer] Visit Date: 10/21/2021 Time: 8:30 AM Name: Shaina Bustos : 1955 Current Concerns: Pt called in yesterday d/t vaginal bleeding The vaginal bleeding is not new and she is unable to say if it is worse She did not follow up with gynecology yet about the bleeding She says she called in yesterday because she was not feeling well overall but is feeling better this morning No bleeding yet this am. She had an abdominal and vaginal ultrasound 2 days ago It is noted on the U/S report that biopsy is recommended Pt's urine in brief this morning is dark yellow but no blood noted She denies any BRB in stool or dark tarry stools Denies pain ELECTRONIC DEVELOPMENT TECHNICIAN appt was not set up yet - msg sent to scheduling to get that scheduled JONO Also needs return visit with Heme/Onc - msg sent to scheduling Had labs earlier this week and hgb was stable at 7.6 - last reading was 7.2 Problems/Symptoms: Review of Systems Respiratory: Positive for shortness of breath (at baseline). Genitourinary: Positive for vaginal bleeding. Physical Exam: BP 110/60 | Pulse 80 | Temp 36.8 C (98.2 F) | Resp 18 | SpO2 92% Pain 0 Physical Exam Constitutional: General: She is not in acute distress. Appearance: She is obese. Cardiovascular: Rate and Rhythm: Normal rate and regular rhythm. Pulses: Normal pulses. Heart sounds: Normal heart sounds. Skin: General: Skin is warm and dry. Neurological: Mental Status: She is alert and oriented to person, place, and time. Treatment/Plan: Continue meds as ordered Follow up with ELECTRONIC DEVELOPMENT TECHNICIAN regarding vaginal bleeding Home Interventions Provided: Home Intervention: Other; Evaluation Reinforced current Plan of Care, including self-management and medication regimen Patient's 'Red Flags': 1. Increased SOB 2. Feelings of lightheaded or dizziness 3. Change in mental status Patient Needs to Remember: Call [facility] at with any new or worsening health concerns or problems, red flag symptoms. Referrals Needed: Other none Follow Up: Is there cellular connectivity/connectivity in the home? Yes Does the patient have internet in the home? Yes Patient encouraged to call the intake phone number for all urgent but not emergent issues. Scheduled to follow up with patient in 24 hrs. July Poe RN 10/21/2021 8:30 AM documented in this encounter Miscellaneous Notes * ACP (Advance Care Planning) - July Poe RN - 10/21/2021 8:47 AM EST Patient-centered Communication 10/21/2021 The patient/surrogate voluntarily agreed to participate in advance care planning discussion. They were advised that this is a separate service which may incur out of pocket cost in the form of copayment and/or deductibles. Location: Home Individual(s) present for conversation: Patient and Spouse Decisions Additional Comments Discerning What Matters Most to the Patient: Source: Content from Respecting Choices Program Aligning Care With What Matters Most: Rationale for Decisions Source: Content from [employer] Cho[employer] Program 30 minutes spent in direct [id number] discussion today, July Poe RN documented in this encounter Plan of Treatment Upcoming Encounters Date Type Specialty Care Team Description 10/22/2021 Scheduled Telephone [facility] Manufactured Buildings Repairer, [facility] [address] [place] [address] 10/22/2021 Office Visit Sleep Disorders Love Francisco DO [address] [place] [address] 10/27/2021 Office Visit Gynecology Obstetrics Maggie Munguia PA-C [facility] [place] [place] [address] 10/28/2021 [facility] Visit [facility] July Poe RN [address] [place] [address] 10/29/2021 Office Visit Cardiology Quyen Canseco CRNP [address] [place] [address] 11/01/2021 Laboratory Laboratory Processing [facility] Mobile Home Draw [address] [place] [address] 11/05/2021 Hem/Onc Treatment Hematology Oncology [place], Chair 11 Hem Onc Scenery [address] [place] [address] 11/10/2021 Office Visit [facility] [address] [place] [address] 11/15/2021 Laboratory Laboratory Processing [facility], [facility] Mobile Home Draw [address] [place] [address] 11/16/2021 Office Visit Family Medicine Vanita Dunn MD [address] [place] [address] 11/26/2021 Hem/Onc Treatment Hematology Oncology [place], Chair 4 Hem Onc Scenery [address] [place] [address] 11/29/2021 Laboratory Laboratory Processing [facility], [facility] Mobile Home Draw [address] [place] [address] 11/30/2021 Home Visit Family Medicine Kaylee Barakat, [facility] Certified Prosthetist/Orthotist [address] [place] [address] 12/13/2021 Laboratory Laboratory Processing [facility], [facility] Mobile Home Draw [address] [place] [address] 12/17/2021 Hem/Onc Treatment Hematology Oncology [place], Chair 2 Hem Onc Scenery [address] [place] [address] 12/22/2021 Office Visit Endocrinology Alberta Duque PA-C [address] [place] [address] 12/23/2021 Office Visit Gastroenterology Lyssa Stout CRNP [address] [place] [address] 12/27/2021 Laboratory Laboratory Processing [facility], [facility] Mobile Home Draw [address] [place] [address] 01/04/2022 Office Visit Hematology Oncology Tono Sanchez MD [address] [place] [address] 01/07/2022 Hem/Onc Treatment Hematology Oncology [place], Chair 1 Hem Onc Scenery [address] [place] [facility] [place] [address] 01/10/2022 Laboratory Laboratory Processing [facility], [facility] Mobile Home Draw [address] [place] [address] 01/24/2022 Laboratory Laboratory Processing [facility], [facility] Mobile Home Draw [address] [place] [address] 01/28/2022 Hem/Onc Treatment Hematology Oncology [place], Chair 1 Hem Onc Scenery [address] [facility] [place] [address] 02/07/2022 Laboratory Laboratory Processing [facility], Gml Mobile Home Draw [address] [place] [address] 02/18/2022 Hem/Onc Treatment Hematology Oncology [place], Chair 1 Hem Onc Scenery 200 [facility] [address] 02/21/2022 Laboratory Laboratory Processing [facility], G[facility] Mobile Home Draw [address] [place] [address] 03/07/2022 Laboratory Laboratory Processing [facility] Mobile Home Draw [address] [place] [address] 03/11/2022 Hem/Onc Treatment Hematology Oncology [place], Chair 1 Hem Onc Scenery [address] [facility] [address] 03/24/2022 Office Visit Pulmonary Reynaldo Marquez MD [address] [place] [address] 04/01/2022 Hem/Onc Treatment Hematology Oncology [place], Chair 1 Hem Onc Scenery [address] [facility] [address] 04/22/2022 Hem/Onc Treatment Hematology Oncology [place], Chair 1 Hem Onc Scenery [address] [place] [address] 06/24/2022 Office Visit Sleep Disorders Love Francisco, DO [address] [place] [address] Scheduled Procedures Name Priority Associated Diagnoses Date/Ti [...] of this encounter Implants Implanted Type Area Mattress Stripper Device Identifier Shelf Expiration Date Model / Serial / Lot Microtech Sure Clip Implanted:Qty: 2 on 06/03/2020 by Janis Hatch DO at OR [facility] Clip N/A: Colon 04/21/2022 [facility]-F-26-2 35-C-R / / [id number] documented as of this encounter Visit Diagnoses Diagnosis Advanced care planning/counseling discussion- Primary Other specified counseling documented in this encounter Advance Directives Documents on File Type Date Recorded Patient Security Police 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 AND HEALTH CARE POA Power of Program Technician 04/29/2021 12:00 AM TOM R OF CONSULTING SERVICES ASSOCIATE HEALTH CARE POA Advanced Directive 04/01/2021 [...] Bustos Spouse Emergency Contact Care Teams Research Computing Specialist Relationship Specialty Start Date End Date Vanita Dunn MD [address], [place] [phone] PCP - General Family Medicine 03/16/21 documented as of this encounter"
--- OUTSIDE RECORDS SUMMARY | 2023-05-10 19:23 | External Medical Summary | Summary of Care ---
Author Name Unknown Organization [facility] Address [facility] [place] [address] Care Team Providers Care Lapping Machine Tender Name Role Phone Vanita Dunn MD Primary Care Provid er Encounter Details Date Type Department Care Team Description 10/21/[address] [facility] [address] [place] [address] Brianne Pal PA-C [address] [place] [address] Allergies Active Allergy Reactions Severity [...] 120 Vial 11 10/02/2019 Active nystatin (NYSTOP) 359371 UNIT/GM powder Apply topically to affected area [...] Informant: Pharmacy, Reported on 02/04/2021 Dexcom G6 Soubrette Device Use as directed. To test blood [...] Strip 3 10/29/2020 Active OneTouch Delica Plus [id number] TESTING once daily 100 Each 3 10/29/2020 [...] pain 01/24/2012 01/17/2017 Genetic Sleep Disorder Research Other*[id number] 05/13/2011 04/07/2016 Obstructive sleep apnea 01/18/2011 12/27/19 [...] Telephone Encounter - Brianne Pal PA-C - 10/21/2021 12:23 PM EST Please let her know - the ultrasound shows an endometrial stripe that is irregular. This is not what should be seen in a post menopausal woman. She really should see fighting vehicle infantryman to have this biopsied. The radiologist is concerned and so am I with the bleeding she has been having. Referral done by [facility] - Brianne Pal PA-C 10/21/2021 12:27 PM documented in this encounter Plan of Treatment Upcoming Encounters Date Type Specialty Care Team Description 10/22/2021 Scheduled Telephone [facility] Alumnae Secretary, [address] [place] [address] 10/22/2021 Office Visit Sleep Disorders Love Francisco DO [address] [place] [address] 10/28/2021 Home Visit [facility] July Poe RN [address] [place] [address] 10/29/2021 Office Visit Cardiology Quyen Canseco CRNP [address] [place] [address] 11/01/2021 Laboratory Laboratory Processing [facility], [facility] Mobile Home Draw [address] [place] [address] 11/05/2021 Hem/Onc Treatment Hematology Oncology [place], Chair 11 Hem Onc Scenery [address] [place] [address] 11/10/2021 Office Visit Pharmacy [facility] [address] [place] [address] 11/15/2021 Laboratory Laboratory Processing [facility], l Mobile Home Draw [address] [place] [address] 11/16/2021 Office Visit Family Medicine Vanita Dnun MD [address] [place] [address] 11/26/2021 Hem/Onc Treatment Hematology Oncology [place], Chair 4 Hem Onc Scenery [address] [place] [address] 11/29/2021 Laboratory Laboratory Processing [facility], [facility] Mobile Home Draw [address] [place] [address] 11/30/2021 Home Visit Family Medicine Kaylee Barakat, Community [facility] Acid Adjuster [address] [place] [address] 12/13/2021 Laboratory Laboratory Processing [facility], [facility] Mobile Home Draw [address] [place] [address] 12/17/2021 Hem/Onc Treatment Hematology Oncology [place], Chair 2 Hem Onc Scenery [address] [place] [address] 12/22/2021 Office Visit Endocrinology Alberta Duque PA-C [address] [place] [address] 12/23/2021 Office Visit Gastroenterology Lyssa Stout CRNP [address] [place] [address] 12/27/2021 Laboratory Laboratory Processing [facility], [facility] Mobile Home Draw [address] [place] [address] 01/04/2022 Office Visit Hematology Oncology Tono Sanchez MD [address] [place] [address] 01/07/2022 Hem/Onc Treatment Hematology Oncology [place], Chair 1 Hem Onc Scenery [address] [place] [address] 01/10/2022 Laboratory Laboratory Processing [facility], G[facility] Mobile Home Draw [address] [place] [address] 01/24/2022 Laboratory Laboratory Processing [facility], G[facility] Mobile Home Draw [address] [place] [address] 01/28/2022 Hem/Onc Treatment Hematology Oncology [place], Chair 1 Hem Onc Scenery [address] [place] [address] 02/07/2022 Laboratory Laboratory Processing [facility], [facility] Mobile Home Draw [address] [place] [address] 02/18/2022 Hem/Onc Treatment Hematology Oncology [place], Chair 1 Hem Onc Scenery [address] [place] [address] 02/21/2022 Laboratory Laboratory Processing [facility], [facility] Mobile Home Draw [address] [place] [address] 03/07/2022 Laboratory Laboratory Processing [facility], [facility] Mobile Home Draw [address] [place] [address] 03/11/2022 Hem/Onc Treatment Hematology Oncology [place], Chair 1 Hem Onc Scenery [address] [place] [address] 03/24/2022 Office Visit Pulmonary Reynaldo Marquez MD [address] [place] [id number] 04/01/2022 Hem/Onc Treatment Hematology Oncology [place], Chair 1 Hem Onc Scenery [address] [place] [address] 04/22/2022 Hem/Onc Treatment Hematology Oncology [place], Chair 1 Hem Onc Scenery [address] [place] [address] 06/24/2022 Office Visit Sleep Disorders Love Francisco, DO 132 [facility] [place] [address] Scheduled Procedures Name Priority Associated Diagnoses Date/Ti me ESOPHAGOGASTRODUODENOSCOPY ( EGD), FLEXIBLE, TRANSORAL, DIAGNOSTIC Recall Esophagitis COLONOSCOPY FLEXIBLE PROXIMAL DIAGNOSTIC Recall History of colonic polyps Health Maintenance Due Date Last Done Comments BASIC METABOLIC PANEL (BMP) FOR HTN YEARLY 1973 TSH FOR THYROID MEDICATION MONITORING YEARLY 1973 DIABETES-EYE EXAM 06/12/2019 06/12/2018, , 06/12/2018, Additional [...] 11/06/2019, 01/09/2019, Additional history exists Yearly B-12 07/06/2022 07/06/2021, 07/10/2020, 03/21/2021, Additional history exists BREAST CANCER SCREENING DISCUSSION YEARLY AGES 40-75 09/09/2022 09/09/2021, 09/08/2020, 09/02/2019, Additional history exists Pneumococcal Vaccine: 65+ Years [...] of this encounter Implants Implanted Type Area Binding Dyer Device Identifier Shelf Expiration Date Model / Serial / Lot Microtech Sure Clip Implanted:Qty: 2 on 06/03/2020 by Janis Hatch DO at OR [facility] Clip N/A: Colon 04/21/2022 [facility]-F-26-2 35-C-R / / [id number] documented as of this encounter Advance Directives Documents on File Type Date Recorded Patient Hub Borer 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 LIVING WILL LIVING WILL [facility] 04/29/2021 12:00 AM TOM [facility] POA Advanced Directive 04/01/2021 1:14 PM Advanced [...] Syed Bustos Spouse Emergency Contact Care Teams Lapping Machine Tender Relationship Specialty Start Date End Date Vanita Dunn MD [address] [place], [place] [phone] PCP - General Family Medicine 03/16/21 documented as of this encounter
--- OUTSIDE RECORDS SUMMARY | 2023-05-10 19:23 | External Medical Summary | Summary of Care ---
Author Name Unknown Organization [facility] [place] [address] Care Team Providers Care Superintendent Production Name Role Phone Vanita Dunn MD Primary Care Provid er Reason for Visit * Reason Onset Date Comments Referral 10/21/2021 Encounter Details Date Type Department Care Team Description 10/21/2021 Telephone Gynecology/Obstetrics [facility] [address] [place] [address] Susan Jara MD [address] [place] [address] Referral Allergies Active Allergy Reactions [...] 120 Vial 11 10/02/2019 Active nystatin (NYSTOP) 082359 UNIT/GM powder Apply topically to affected area [...] Informant: Pharmacy, Reported on 02/04/2021 Dexcom G6 Debubblizer Device Use as directed. To test blood [...] Strip 3 10/29/2020 Active OneTouch Delica Plus [id number] TESTING once daily 100 Each 3 10/29/2020 [...] pain 01/24/2012 01/17/2017 Genetic Sleep Disorder Research Other*[id number] 05/13/2011 04/07/2016 Obstructive sleep apnea 01/18/2011 12/27/19 [...] Team Description 10/22/2021 [facility]uled Telephone [facility] Assembler Ping Pong Table, Brady Decker [address] [place] [address] 10/22/2021 Office Visit Sleep Disorders Love Francisco DO [address] [place] [address] 10/27/2021 Office Visit Gynecology Obstetrics Maggie Munguia PA-C [address] [place] [address] 10/28/2021 [facility] July Poe RN [address] [place] [address] 10/29/2021 Office Visit Cardiology Quyen Canseco CRNP [address] [place] [address] 11/01/2021 Laboratory Laboratory Processing c, Gml Mobile Home Draw [address] [place] [address] 11/05/2021 Hem/Onc Treatment Hematology Oncology [place], Chair 11 Hem Onc Scenery [address] [place] [address] 11/10/2021 Office Visit Pharmacy [facility] [address] [place] [address] 11/15/2021 Laboratory Laboratory Processing [facility] Gm Mobile Home Draw [address] [place] [address] 11/16/2021 Office Visit Family Medicine Vanita Dunn MD [address] [place] [address] 11/26/2021 Hem/Onc Treatment Hematology Oncology [place], Chair 4 Hem Onc Scenery [address] [place] [address] 11/29/2021 Laboratory Laboratory Processing c, Gml Mobile Home Draw [address] [place] [address] 11/30/2021 Home Visit Family Medicine Kaylee Barakat, Community [facility] Ocular Care Aide [address] [place] [address] 12/13/2021 Laboratory Laboratory Processing [facility], [facility] Mobile Home Draw [address] [place] [address] 12/17/2021 Hem/Onc Treatment Hematology Oncology [place], Chair 2 Hem Onc [facility] [address] [place] [address] 12/22/2021 Office Visit Endocrinology Alberta Duque PA-C [address] [place] [address] 12/23/2021 Office Visit Gastroenterology Lyssa Stout CRNP [address] [place] [address] 12/27/2021 Laboratory Laboratory Processing [facility], [facility] Mobile Home Draw [address] [place] [address] 01/04/2022 Office Visit Hematology Oncology Tono Sanchez MD [address] [place] [address] 01/07/2022 Hem/Onc Treatment Hematology Oncology [place], Chair 1 Hem Onc [facility] [address] [place] [address] 01/10/2022 Laboratory Laboratory Processing [facility], G[facility] Mobile Home Draw [address] [place] [address] 01/24/2022 Laboratory Laboratory Processing [facility], G[facility] Mobile Home Draw [address] [place] [address] 01/28/2022 Hem/Onc Treatment Hematology Oncology [place], Chair 1 Hem Onc Scenery [address] [place] [address] 02/07/2022 Laboratory Laboratory Processing [facility], [facility] Mobile Home Draw [address] [place] [address] 02/18/2022 Hem/Onc Treatment Hematology Oncology [place], Chair 1 Hem Onc Scenery [address] [place] [address] 02/21/2022 Laboratory Laboratory Processing [facility] Mobile Home Draw [address] [place] [address] 03/07/2022 Laboratory Laboratory Processing [facility] Mobile Home Draw [address] [place] [address] 03/11/2022 Hem/Onc Treatment Hematology Oncology [place], Chair 1 Hem Onc Scenery [address] [place] [address] 03/24/2022 Office Visit Reynaldo Marks MD [address] [place] [address] 04/01/2022 Hem/Onc Treatment Hematology Oncology [place], Chair 1 Hem Onc Scenery [address] [place] [address] 04/22/2022 Hem/Onc Treatment Hematology Oncology [place], Chair 1 Hem Onc Scenery [address] [place] [address] 06/24/2022 Office Visit Sleep Disorders Love Francisco, DO 132 [facility] [place] [address] Scheduled Procedures Name Priority Associated Diagnoses Date/Ti [...] of this encounter Implants Implanted Type Area School Bus Dispatcher Device Identifier Shelf Expiration Date Model / Serial / Lot Microtech Sure Clip Implanted:Qty: 2 on 06/03/2020 by Janis Hatch DO at OR [facility] Clip N/A: Colon 04/21/2022 [facility]-F-26-2 35-C-R / / [id number] documented as of this encounter Advance Directives Documents on File Type Date Recorded Patient Vp Medical 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 LIVING WILL AND HEALTH CARE POA Power Clerk 04/29/2021 12:00 AM TOM R ABA English [facility] POA Advanced Directive 04/01/2021 1:14 PM [...] Agents on File Name Relationship Healthcare Agent [facility] Communication Syed Bustos Spouse Emergency Contact Care Teams Superintendent Production Relationship Specialty Start Date End Date Vanita Dunn MD [address] [place], [place] [phone] PCP - General Family Medicine 03/16/21 documented as of this encounter
--- OUTSIDE RECORDS SUMMARY | 2023-05-10 19:23 | External Medical Summary | Summary of Care ---
Author Name Unknown Organization [facility] Address [place] [address] Care Team Providers Care Crayon Grader Name Role Phone Vanita Dunn MD Primary Care Provid er Reason for Visit * Reason Onset Date Comments [facility]: Maintenance 10/22/2021 w jami Encounter Details Date Type Department Care Team Description 10/22/2021 Scheduled Telephone [facility], [facility] [address] [facility] [place] [address] Coordinator, [facility] [address] [facility] [place] [address] Allergies Active Allergy Reactions Severity Noted Date [...] 120 Vial 11 10/02/2019 Active nystatin (NYSTOP) 622919 UNIT/GM powder Apply topically to affected area [...] of Breath, Informant: Pharmacy, Reported on 02/04/2021 [employer] [place] [employer] G6 Decorator Lighting Fixtures Device Use as directed. To test blood [...] Strip 3 10/29/2020 Active OneTouch Delica Plus Nalabn83V TESTING once daily 100 Each 3 10/29/2020 [...] pain 01/24/2012 01/17/2017 Genetic Sleep Disorder Research Other*[id number] 05/13/2011 04/07/2016 Obstructive sleep apnea 01/18/2011 12/27/19 [...] Miscellaneous Notes * Telephone Encounter - Tamara Gutierrez LPN - 10/22/2021 1:15 PM EST Follow up call regarding menopausal bleeding and weakness. No answer left message for patient to return call to [facility] option 3 Sending to RNCM for additional outreach documented in this encounter Plan of Treatment Upcoming Encounters Date Type Specialty Care Team Description 10/27/2021 Office Visit Gynecology Obstetrics Maggie Munguia PA-C [address] [place] [address] 10/28/2021 Home Visit [facility] July Poe RN [address] [place] [address] 10/29/2021 Office Visit Cardiology Quyen Canseco CRNP [address] [place] [address] 11/01/2021 Laboratory Laboratory Processing [facility] [address] [place] [address] 11/05/2021 Hem/Onc Treatment Hematology Oncology [place], Chair 11 Hem Onc Scenery [address] [place] [address] 11/10/2021 Office Visit Pharmacy [facility] [address] [place] [address] 11/15/2021 Laboratory Laboratory Processing [facility] [address] [place] [address] 11/16/2021 Office Visit Family Medicine Vanita Dunn MD [address] [place] [address] 11/26/2021 Hem/Onc Treatment Hematology Oncology Maryellen, Chair 4 Hem Onc Scenery [address] [place] [address] 11/29/2021 Laboratory Laboratory Processing [facility] [address] [place] [address] 11/30/2021 Home Visit Family Medicine Kaylee Barakat, [facility] [address] [place] [address] 12/13/2021 Laboratory Laboratory Processing [facility] [address] [place] [address] 12/17/2021 Hem/Onc Treatment Hematology Oncology [place], Chair 2 Hem Onc Scenery [address] [place] [address] 12/22/2021 Office Visit Endocrinology Alberta Duque PA-C [address] [place] [address] 12/23/2021 Office Visit Gastroenterology Lyssa Stout CRNP [address] [place] [address] 12/27/2021 Laboratory Laboratory Processing [facility] [address] [place] [address] 01/04/2022 Office Visit Hematology Oncology Tono Sanchez MD [address] [place] [address] 01/07/2022 Hem/Onc Treatment Hematology Oncology [place], Chair 1 Hem Onc Scenery [address] [facility] [place], [place] [address] 01/10/2022 Laboratory Laboratory Processing [facility] [address] [place] [address] 01/24/2022 Laboratory Laboratory Processing [facility] [address] [place] [address] 01/28/2022 Hem/Onc Treatment Hematology Oncology [place], Chair 1 Hem Onc Scenery [address] [place] [address] 02/07/2022 Laboratory Laboratory Processing [facility] Home Draw [address] [place] [address] 02/18/2022 Hem/Onc Treatment Hematology Oncology [place], Chair 1 Hem Onc Scenery [address] [place] [address] 02/21/2022 Laboratory Laboratory Processing [facility], [facility] Draw [address] [place] [address] 03/07/2022 Laboratory Laboratory Processing [facility], [facility] Draw [address] [place] [address] 03/11/2022 Hem/Onc Treatment Hematology Oncology [place], Chair 1 Hem Onc Scenery [address] [place] [address] 03/24/2022 Office Visit Pulmonary Reynaldo Marquez MD [address] [place] [address] 04/01/2022 Hem/Onc Treatment Hematology Oncology [place], Chair 1 Hem Onc Scenery [address] [place] [address] 04/22/2022 Hem/Onc Treatment Hematology Oncology [place], Chair 1 Hem Onc Scenery [address] [place] [address] 06/24/2022 Office Visit Sleep Disorders Love Francisco, DO [address] [facility] [place] [address] Scheduled Procedures Name Priority Associated Diagnoses Date/Ti [...] of this encounter Implants Implanted Type Area Slasher Sawyer Device Identifier Shelf Expiration Date Model / Serial / Lot Microtech Sure Clip Implanted:Qty: 2 on 06/03/2020 by Janis Hatch DO at OR [facility] Clip N/A: Colon 04/21/2022 [facility]-F-26-2 35-C-R / / [id number] documented as of this encounter Advance Directives Documents on File Type Date Recorded 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
--- OUTSIDE RECORDS SUMMARY | 2023-05-10 19:24 | External Medical Summary | Summary of Care ---
Author Name Unknown Organization [place] [address] Care Team Providers Care Line Tender Flakeboard Name Role Phone Vanita Dunn MD Primary Care Provid er Reason for Referral * Evaluate & Treat - Unlimited Visits (Within 10 days (routine)) - Authorized Specialty Diagnoses / Procedures Referred By Contac t Referred To Contact Obstetrics/Gynecology / Gynecology Obstetrics Diagnoses Postmenopausal bleeding Abnormal pelvic ultrasound Joselin Dawson CRNP [address] [place] [id number] Referral ID Status Reason Start Date Expiration Date Visits Requested Visits Authorized [id number] Authorized Specialty Services Required 10/21/2021 1 1 Question Answer Referral Priority Within 10 days (routine) What condition is the patient being seen for? Other Comments Post menopausal bleeding, abnormal trans-vag u/s--needs biopsy. Pt w/c bound and will need svetlana lift to be placed in exam chair. Reason for Visit * Reason Onset Date Comments [facility]: Acute 10/20/2021 Encounter Details Date Type Department Care Team Description 10/20/2021 Telephone [facility], [facility] [address] [place] [address] [facility], Nurse [facility] [address] [place] [address] [facility]: Acute Allergies Active Allergy [...] 120 Vial 11 10/02/2019 Active nystatin (NYSTOP) 671496 UNIT/GM powder Apply topically to affected area [...] Informant: Pharmacy, Reported on 02/04/2021 Dexcom G6 Bar Examiner Device Use as directed. To test [...] once daily 100 Strip 3 10/29/2020 Active [place] DEPT.Touch Delica Plus Pfmbui26K TESTING once daily 100 Each 3 10/29/2020 [...] than 7.0% ([facility]) Inject one pen (4.5 mg) under the [...] pain 01/24/2012 01/17/2017 Genetic Sleep Disorder Research Other*[id number] 05/13/2011 04/07/2016 Obstructive sleep apnea 01/18/2011 12/27/19 [...] encounter Miscellaneous Notes * Addendum Note - ZAK Lara - 10/21/2021 11:58 AM EST Addended by: JOSELIN DAWSON on: 10/21/2021 11:58 AM Modules accepted: Orders * Telephone Encounter - ZAK Lara - 10/21/2021 11:56 AM EST Called and spoke with pt and made aware of findings on pelvic ultrasound. She would like to pursue biopsy. Reception Centre Manager referral placed. [place] please assist--pt would prefer Chau jenkins but she will require a Svetlana lift to exam table. Also sending to Cassie Knapp RN for assist--pt reports she had to cancel her last iron infusion d/t poor weather and would like assist to reschedule. Thank you! STEWART Mcdowell and Dr. Dunn * Telephone Encounter - Jose Barlow DO - 10/20/2021 12:00 PM EST [facility] Phone Encounter Quick Links: Assessment and Recommendations: Problem List Items Addressed This Visit Hematologic Iron deficiency anemia due to chronic blood loss Digestive Cirrhosis of liver (HCC) (Chronic) Other Visit Diagnoses Postmenopausal bleeding - Primary Addt'l Comments: Triage information noted - it doesn't sound like one particular acute issue today, so I agree w/ visit tomorrow Endometrial stripe heterogenous - concerning in postmenopausal pt To Do: Please see below for follow up items to be completed and correspondence: Lele - I would recommend collaborating w/ the PCP on a barrel rifler hook eval for her or if that's even something that she would want or be able to do - recommend starting and completing the ACP activity eleazar understand her understanding of her illness, what matter most and interventions she would want/not want FYI to Shaina's Care Team Agree with advice given and plan of care. No further action needed. Routed to sender as an FYI that message was addressed. Jose Barlow DO [facility] 10/20/2021 Scheduled appointments in the next 60 days: Future Appointments-next 60 days Date/Time Provider Specialty Dept Phone 10/21/2021 8:30 AM [facility] [phone] 10/22/2021 1:00 PM [facility] [place] [facility] [phone] 10/22/2021 1:20 PM Love Francisco DO Sleep Disorders [phone] 10/28/2021 10:00 AM [facility] [phone] 10/29/2021 2:00 PM (Arrive by 1:45 PM) ZAK Rangel Cardiology [phone] 11/01/2021 12:55 AM [facility] Laboratory Processing [phone] 11/05/2021 1:00 PM Chair 11 Hem Onc [address] [place] Hematology Oncology [phone] 11/10/2021 1:00 PM [facility] [phone] 11/15/2021 12:55 AM [facility] Laboratory Processing [phone] 11/16/2021 12:20 PM (Arrive by 12:05 PM) Vanita Dunn MD Family Medicine [phone] 11/26/2021 1:00 PM Chair 4 Hem Onc [place] Hematology Oncology [phone] 11/29/2021 12:55 AM [facility] Laboratory Processing [phone] 11/30/2021 12:00 PM Kaylee Barakat [facility] Outreach Liaison Family Medicine [phone] 12/13/2021 12:55 AM [facility] Laboratory Processing [phone] 12/17/2021 1:00 PM Chair 2 Hem Onc [place] Hematology Oncology [phone] 12/22/2021 3:00 PM (Arrive by 2:45 PM) Alberta Duque PA-C Endocrinology [phone] 12/23/2021 1:30 PM (Arrive by 1:15 PM) ZAK Bolton Gastroenterology [phone] 12/27/2021 12:55 AM [facility] Laboratory Processing [phone] 01/04/2022 3:15 PM (Arrive by 3:00 PM) Tono Sanchez MD Hematology Oncology [phone] 01/07/2022 1:00 PM Chair 1 Hem Onc [place] Hematology Oncology [phone] 01/10/2022 12:55 AM [facility] Laboratory Processing [phone] 01/24/2022 12:55 AM [facility] Laboratory Processing [phone] 01/28/2022 1:00 PM Chair 1 Hem Onc [place] Hematology Oncology [phone] 02/07/2022 12:55 AM [facility] Laboratory Processing [phone] 02/18/2022 1:00 PM Chair 1 Hem Onc [place] Hematology Oncology [phone] 02/21/2022 12:55 AM [facility] Laboratory Processing [phone] 03/07/2022 12:55 AM [facility] Laboratory Processing [phone] 03/11/2022 1:00 PM Chair 1 Hem Onc [place] Hematology Oncology [phone] 03/24/2022 3:00 PM (Arrive by 2:45 PM) Reynaldo Marquez MD Pulmonary [phone] 04/01/2022 1:00 PM Chair 1 Hem Onc [place] [place] Hematology Oncology [phone] 04/22/2022 1:00 PM Chair 1 Hem Onc [place] Hematology Oncology [phone] 06/24/2022 1:20 PM Love Francisco DO Sleep Disorders [phone] * Telephone Encounter - Pam Carr RN - 10/20/2021 11:20 AM EST [facility] 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 She reports ongoing vaginal bleeding "for a long time" along with stomach pain. She had an US done yesterday for the same. C/o headache, denies dizziness and lightheadedness. Reports weakness at baseline and states she has trouble getting out of bed. US results noted in chart, results abnormal with biopsy recommended, pt not aware of result yet. Last hgb 7.8 on 10/18/21, follows with hem/onc but missed last scheduled iron transfusion on 10/15/21 Nursing Assessment: Patient's chief complaint for this call: Weakness and bleeding. C/o chronic weakness and fatigue that is worse than baseline, has a wheelchair and svetalna lift at home. Reports ongoing bleeding "for a long time", unable to quantify heaviness,states there is always blood in my pad when I am changed. Denies dizziness/lighteadedness. Pain Has pain Pain level: 7 Location: headache Quality of Pain: aching Does the pain radiate: No Baseline Assessment Able to performing ADLs at baseline (walking, daily tasks, etc.): No Chief Complaint is related to a chronic condition: Unknown Patient prescribed oxygen? No Patient has been ordered DME equipment (assistive devices, respiratory equipment, etc.): Yes Describe DME devices: wheelchair Patient is using DME device as directed: Yes Medication Reconciliation: (See medication list) Taking medication as ordered: Yes Medications ordered/taking to treat reason for call: No Treatment/Plan: (need to report) Level of call: Acute Appointment scheduled for same day: No, appt scheduled for tomorrow Provider Name: July Poe Treatment plan until appointment: continue to monitor and call back to [facility] intake with any changes in conditons. Call back instructions provided to patient. documented in this encounter Plan of Treatment Upcoming Encounters Date Type Specialty Care Team Description 10/22/2021 Scheduled [facility]phone [facility] [place] [place], [address] [place] [address] 10/22/2021 Office Visit Sleep Disorders Love Francisco DO 132 [facility] [place] [address] 10/28/2021 Home Visit [facility] July Poe, RN [address] [place] [address] 10/29/2021 Office Visit Cardiology Quyen Canseco CRNP [address] [place] [address] 11/01/2021 Laboratory Laboratory Processing [facility] Draw [address] [place] [address] 11/05/2021 Hem/Onc Treatment Hematology Oncology [place], Chair 11 Hem Onc Scenery [address] [place] [address] 11/10/2021 Office Visit Pharmacy [facility] [address] [place] [address] 11/15/2021 Laboratory Laboratory Processing [facility] Draw [address] [place] [address] 11/16/2021 Office Visit Family Medicine Vanita Dunn MD [address] [place] [address] 11/26/2021 Hem/Onc Treatment Hematology Oncology [place], Chair 4 Hem Onc Scenery [address] [place] [address] 11/29/2021 Laboratory Laboratory Processing c, [facility] Draw [address] [place] [address] 11/30/2021 Home Visit Family Medicine Kaylee Barakat, [facility] Out[facility] Liaison [address] [place] [address] 12/13/2021 Laboratory Laboratory Processing [facility] Draw [address] [place] [address] 12/17/2021 Hem/Onc Treatment Hematology Oncology [place], Chair 2 Hem Onc Scenery [address] [place] [address] 12/22/2021 Office Visit Endocrinology Alberta Duque PA-C [address] [place] [address] 12/23/2021 Office Visit Gastroenterology Lyssa Stout CRNP [address] [place] [address] 12/27/2021 Laboratory Laboratory Processing [facility], [facility] Draw [address] [place] [address] 01/04/2022 Office Visit Hematology Oncology Tono Sanchez MD [address] [place] [address] 01/07/2022 Hem/Onc Treatment Hematology Oncology [place], Chair 1 Hem Onc Scenery [address] [place] [address] 01/10/2022 Laboratory Laboratory Processing [facility], [facility] Draw [address] [place] [address] 01/24/2022 Laboratory Laboratory Processing [facility], [facility] Draw [address] [place] [address] 01/28/2022 Hem/Onc Treatment Hematology Oncology [place], Chair 1 Hem Onc Scenery [address] [place] [address] 02/07/2022 Laboratory Laboratory Processing [facility], [facility] Draw [address] [place] [address] 02/18/2022 Hem/Onc Treatment Hematology Oncology [place], Chair 1 Hem Onc Scenery [address] [place] [address] 02/21/2022 Laboratory Laboratory Processing [facility] Mobile Home Draw [address] [place] [address] 03/07/2022 Laboratory Laboratory Processing [facility] Home Draw [address] [place] [address] 03/11/2022 Hem/Onc Treatment Hematology Oncology [place], Chair 1 Hem Onc Scenery [address] [place] [address] 03/24/2022 Office Visit Pulmonary Reynaldo Marquez MD [address] [place] [id number] 04/01/2022 Hem/Onc Treatment Hematology Oncology [place], Chair 1 Hem Onc Scenery [address] [place] [address] 04/22/2022 Hem/Onc Treatment Hematology Oncology [place], Chair 1 Hem Onc Scenery [address] [place] [address] 06/24/2022 Office Visit Sleep Disorders Love Francisco, DO [address] [facility] [place] [address] Scheduled Procedures Name Priority Associated Diagnoses Date/Ti me ESOPHAGOGASTRODUODENOSCOPY ( EGD), FLEXIBLE, TRANSORAL, DIAGNOSTIC Recall Esophagitis COLONOSCOPY FLEXIBLE PROXIMAL DIAGNOSTIC Recall History of colonic polyps Scheduled Referrals Name Type Priority Associated Diagnoses Orde r Schedule 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 RANGE OPERATOR CLOTH REFERRAL OP Referral Within 10 days (routine) [...] of this encounter Implants Implanted Type Area Chemical Sprayer Device Identifier Shelf Expiration Date Model / Serial / Lot Microtech Sure Clip Implanted:Qty: 2 on 06/03/2020 by Janis Hatch DO at OR [facility] Clip N/A: Colon 04/21/2022 [facility]-F-26-2 35-C-R / / [id number] documented as of this encounter Visit Diagnoses Diagnosis Postmenopausal bleeding- Primary Hepatic cirrhosis, unspecified hepatic cirrhosis type, unspecified whether ascites present (HCC) 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 (chronic) Abnormal pelvic ultrasound Nonspecific (abnormal) findings on radiological and other examination of genitourinary organs documented in this encounter Advance Directives Documents on File Type Date Recorded 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
--- OUTSIDE RECORDS SUMMARY | 2023-05-10 19:24 | External Medical Summary | Summary of Care ---
Author Name Unknown Organization [facility] [place] [address] Care Team Providers Care Registered Vascular Technologist (Rvt) Name Role Phone Vanita Dunn MD Primary Care Provid er Reason for Visit * Reason Onset Date Comments [facility]: Acute 10/20/2021 Encounter Details Date Type Department Care Team Description 10/20/2021 Telephone [facility], [facility] [address] [facility] [place] [address] [facility], Nurse [facility] [address] [facility] [place] [address] [facility]: Acute Allergies Active Allergy Reactions Severity Noted Date Comments Adhesive Tape Itching 04/29/2020 Penicillins Rash 02/12/2008 Perflutren Protein A Microsph 2019 Definity-lower back pain documented as of this encounter (statuses as of 10/20/2021) Medications Medication Sig Dispensed Refills Start Date End Date Status albuterol sulfate (PROVENTIL) (2.5 MG/3ML) 0.083% nebulizer solutionIndications: Pulmonary vascular congestion Inhale 1 Vial via nebulizer every 6 hours as needed for Wheezing. 120 Vial 11 10/02/2019 Active nystatin (NYSTOP) 204608 UNIT/GM powder Apply topically to affected area [...] of Breath, Informant: Pharmacy, Reported on 02/04/2021 Dexlink bird G6 Reimbursement Counselor Device Use as directed. 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 05/13/2011 04/07/2016 Obstructive sleep apnea 01/18/2011 12/27/19 [...] as of this encounter (statuses as of 10/20/2021) Immunizations Name Administration Dates Next Due COVID-19 [...] up items to be completed and correspondence: Joselin/July - I would recommend collaborating w/ the PCP 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 No further action needed. Routed to sender as an FYI that message was addressed. Jose Barlow DO [facility] - [facility] 10/20/2021 Scheduled appointments in the next 60 days: Future Appointments-next 60 days Date/Time Provider Specialty Dept Phone 10/21/2021 8:30 AM July Poe RN [facility] [phone] 10/22/2021 [facility] [phone] 10/22/2021 1:20 PM Love Francisco DO Sleep Disorders [phone] 10/28/2021 10:00 AM July Poe RN [facility] [phone] 10/29/2021 2:00 PM (Arrive by 1:45 PM) ZAK Rangel Cardiology [phone] 11/01/2021 12:55 AM [facility] [phone] 11/05/2021 1:00 PM Chair 11 [address] [place] Hematology Oncology [phone] 11/10/2021 1:00 PM [facility] [phone] 11/15/2021 12:55 AM [facility] [phone] 11/16/2021 12:20 PM (Arrive by 12:05 PM) Vanita Dunn MD Family Medicine [phone] 11/26/2021 1:00 PM Chair 4 Hem Onc [place] [facility] Oncology [phone] 11/29/2021 12:55 AM [facility] [phone] 11/30/2021 12:00 PM Kaylee Barakat [facility] Family Medicine [phone] 12/13/2021 12:55 AM [facility] Processing [phone] 12/17/2021 1:00 PM Chair 2 Hem Onc [place] Hematology Oncology [phone] 12/22/2021 3:00 PM (Arrive by 2:45 PM) Alberta Duque PA-C Endocrinology [phone] 12/23/2021 1:30 PM (Arrive by 1:15 PM) ZAK Bolton Gastroenterology [phone] 12/27/2021 12:55 AM [facility] [phone] 01/04/2022 3:15 PM (Arrive by 3:00 PM) Tono Sanchez MD Hematology Oncology [phone] 01/07/2022 1:00 PM Chair 1 Hem Onc [place] [facility] Oncology [phone] 01/10/2022 12:55 AM [facility] [phone] 01/24/2022 12:55 AM [facility] [phone] 01/28/2022 1:00 PM Chair 1 Hem Onc [place] Hematology Oncology [phone] 02/07/2022 12:55 AM [facility] [phone] 02/18/2022 1:00 PM Chair 1 Hem Onc [place] Hematology Oncology [phone] 02/21/2022 12:55 AM [facility] [phone] 03/07/2022 12:55 AM [facility] [phone] 03/11/2022 1:00 PM Chair 1 Hem Onc [place] Hematology Oncology [phone] 03/24/2022 3:00 PM (Arrive by 2:45 PM) Reynaldo Marquez MD Pulmonary [phone] 04/01/2022 1:00 PM Chair 1 Hem Onc [place] [facility]ematology Oncology [phone] 04/22/2022 1:00 PM Chair 1 Hem Onc [place] Hematology Oncology [phone] 06/24/2022 1:20 PM Love Francisco DO Sleep Disorders [phone] * Telephone Encounter - Pam Carr RN - 10/20/2021 11:20 AM EST [facility] infusion rn Acute Call Date: 10/20/2021 Time: 11:21 AM Name: Shaina Bustos : 1955 Caller: self Relationship to Chief Complaint [facility] with [facility]: Acute HPI: Shaina Bustos is a 66 year old female that is calling [facility] to report bleeding. She [...] worse than baseline, has a wheelchair and candace lift at home. Reports ongoing bleeding "for [...] continue to monitor and call back to [facility] intake with any changes in conditons. Call back instructions provided to patient. documented in this encounter Plan of Treatment Upcoming Encounters Date Type Specialty Care Team Description 10/21/2021 Home Visit [facility] July Poe RN [address] [place] [address] 10/22/2021 Scheduled Telephone [facility] Education Aide, Brady Decker [address] [place] [address] 10/22/2021 Office Visit Sleep Disorders Love Francisco DO [address] [place] [address] 10/28/2021 Home Visit [facility] July Poe RN [address] [place] [address] 10/29/2021 Office Visit Cardiology Quyen Canseco CRNP [address] [place] [address] 11/01/2021 Laboratory Laboratory Processing [facility] Mobile Home Draw [address] [place] [address] 11/05/2021 Hem/Onc Treatment Hematology [place]cology [place], Chair 11 Hem Onc Scenery [address] [place] [address] 11/10/2021 Office Visit Pharmacy [place] [address] [place] [address] 11/15/2021 Laboratory Laboratory Processing [facility] Mobile Home Draw [address] [place], [place] [phone] 11/16/2021 Office Visit Family Medicine Vanita Dunn MD [address] [place] [address] 11/26/2021 Hem/Onc Treatment Hematology Oncology [place]thel, Chair 4 Hem Onc Scenery [address] [place] [address] 11/29/2021 Laboratory Laboratory Processing [facility], [facility] Mobile Home Draw [address] [place] [address] 11/30/2021 Home Visit Family Medicine Kaylee Barakat, [facility] [address] [place] [address] 12/13/2021 Laboratory Laboratory Processing [facility], [facility] Mobile Home Draw [address] [place] [address] 12/17/2021 Hem/Onc Treatment Hematology Oncology Ethel, Chair 2 Hem Onc [address]en[address] [place] [address] 12/22/2021 Office Visit Endocrinology Alberta Duque PA-C [address] [place], [place] [id number] 12/23/2021 Office Visit Gastroenterology Lyssa Stout CRNP [address] [place] [address] 12/27/2021 Laboratory Laboratory Processing [facility], [facility] Mobile Home Draw [address] [place] [address] 01/04/2022 Office Visit Hematology Oncology Tono Sanchez MD [address] [place] [address] 01/07/2022 Hem/Onc Treatment Hematology [place]cology [place], Chair 1 Hem Onc Scenery [address] [facility] [address] 01/10/2022 Laboratory Laboratory Processing [facility], [facility] Mobile Home Draw [address] [place] [address] 01/24/2022 Laboratory Laboratory Processing [facility], [facility] Mobile Home Draw [address] [place] [address] 01/28/2022 Hem/Onc Treatment Hematology Oncology [place], Chair 1 Hem Onc Scenery [address] [facility] [address] 02/07/2022 Laboratory Laboratory Processing c, [facility] Mobile Home Draw [address] [place] [address] 02/18/2022 Hem/Onc Treatment Hematology Oncology [place], Chair 1 Hem Onc Scen[address] [place] [address] 02/21/2022 Laboratory Laboratory Processing c, [facility] Mobile Home Draw [address] [place] [address] 03/07/2022 Laboratory Laboratory Processing [facility], [facility] Mobile Home Draw [address] [place] [address] 03/11/2022 Hem/Onc Treatment Hematology Oncology [place], Chair 1 Hem Onc Scenery [address] [facility] [address] 03/24/2022 Office Visit Pulmonary Reynaldo Marquez MD [address] [place] [address] 04/01/2022 Hem/Onc Treatment Hematology [place]cology [place], Chair 1 Hem Onc Scenery [address] [place] [address] 04/22/2022 Hem/Onc Treatment Hematology [place]cology [place], Chair 1 Hem Onc Scenery [address] [place] [address] 06/24/2022 Office Visit Sleep Disorders Love Francisco, DO [address] [place] [address] Scheduled Procedures Name Priority Associated Diagnoses Date/Ti [...] of this encounter Implants Implanted Type Area Advertising Sales Assistant Device Identifier Shelf Expiration Date Model / Serial / Lot Microtech Sure Clip Implanted:Qty: 2 on 06/03/2020 by Janis Hatch DO at OR [facility] Clip N/A: Colon 04/21/2022 [facility]-F-26-2 35-C-R / / [id number] documented as of this encounter Visit Diagnoses Diagnosis Postmenopausal bleeding- Primary Hepatic cirrhosis, unspecified hepatic cirrhosis type, unspecified whether ascites present (HCC) 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 (chronic) documented in this encounter Advance Directives Documents on File Type Date Recorded Patient Train Control Electronic Technician 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 WILL AND HEALTH CARE POA Power of Blade Boner 04/29/2021 12:00 AM [facility] R OF [facility] CARE POA Advanced Directive 04/01/2021 [...] Bustos Spouse Emergency Contact Care Teams Registered Vascular Technologist (Rvt) Relationship Specialty Start Date End Date Vanita Dunn MD [address] [place] [address] PCP - General Family Medicine 03/16/21 documented as of this encounter
--- OUTSIDE RECORDS SUMMARY | 2023-05-10 19:25 | External Medical Summary ---
Author Name Unknown Address Unknown Organization K[facility] [place] [address] [place] [address] Laboratory Report Ordering Provider Test Date Status JACOB CORBETT 10/18/2021 08:24:00 Final Observation Date Value Abnormality Reference (Units ) Status Nucleated erythrocytes/100 leukocytes [Ratio] in Blood by Automated count 10/18/2021 08:24:00 Final Anisocytosis [Presence] in Blood by Light microscopy 10/18/2021 08:24:00 Moderate Abnormal None Seen Final Elliptocytes [Presence] in Blood by Light microscopy 10/18/2021 08:24:00 Few Abnormal None Seen Final Hypochromia [Presence] in Blood by Light microscopy 10/18/2021 08:24:00 Moderate Abnormal None Seen Final Polychromasia [Presence] in Blood by Light microscopy 10/18/2021 08:24:00 Slight Abnormal None Seen Final Dacrocytes [Presence] in Blood by Light microscopy 10/18/2021 08:24:00 Few Abnormal None Seen Final Performing Location [facility] [place] [address] [place] [address]
--- OUTSIDE RECORDS SUMMARY | 2023-05-10 19:25 | External Medical Summary | Summary of Care ---
Author Name Unknown Organization [place] [address] Care Team Providers Care Legal Contracts Specialist Name Role Phone Vanita Dunn MD Primary Care Provid er Reason for Visit * Reason Onset Date Comments Appointment 10/18/2021 Encounter Details Date Type Department Care Team Description 10/18/2021 Telephone [facility], [place] [address] [place] [address] Services, Scheduling [address] [place] [address] Appointment Allergies Active Allergy Reactions Severity Noted Date Comments Adhesive Tape Itching 04/29/2020 Penicillins Rash 02/12/2008 Perflutren Protein A Microsph 2019 Definity-lower back pain documented as of this encounter (statuses as of 10/18/2021) Medications Medication Sig Dispensed Refills Start Date End Date Status albuterol sulfate (PROVENTIL) (2.5 MG/3ML) 0.083% nebulizer solutionIndications: Pulmonary vascular congestion Inhale 1 Vial via nebulizer every 6 hours as needed for Wheezing. 120 Vial 11 10/02/2019 Active nystatin (NYSTOP) 543899 UNIT/GM powder Apply topically to affected area [...] Informant: Pharmacy, Reported on 02/04/2021 Dexcom G6 Alterations Sewer Device Use as directed. To test [...] Strip 3 10/29/2020 Active OneTouch Delica Plus [id number] TESTING once daily 100 Each 3 10/29/2020 [...] as of this encounter (statuses as of 10/18/2021) Active Problems Problem Noted Date Food insecurity [...] as of this encounter (statuses as of 10/18/2021) Resolved Problems Problem Noted Date Resolved Date [...] pain 01/24/2012 01/17/2017 Genetic Sleep Disorder Research Other*[id number] 05/13/2011 04/07/2016 Obstructive sleep apnea 01/18/2011 12/27/19 [...] as of this encounter (statuses as of 10/18/2021) Immunizations Name Administration Dates Next Due COVID-19 [...] * Telephone Encounter - THAD Graves - 10/18/2021 11:45 AM EST Per Daisha Poe, request to arrange a f/u apptmt after provider visit with her, I called Shaina and she was agreeable to 10/28/2021@10:00am documented in this encounter Plan of Treatment Upcoming Encounters Date Type Specialty Care Team Description 10/19/2021 Appointment Radiology 10/19/2021 Appointment Radiology 10/19/2021 Appointment Radiology 10/22/2021 Office Visit Sleep Disorders Love Francisco DO [address] [place] [address] 10/28/2021 Home Visit [facility] July Poe RN [address] [place] [address] 10/29/2021 Office Visit Cardiology Quyen Canseco CRNP [address] [place] [address] 11/01/2021 Laboratory Laboratory Processing [facility], [facility] Mobile Home Draw [address] [place] [address] 11/05/2021 Hem/Onc Treatment Hematology Oncology [place], Chair 11 Hem Onc Scenery [address] [place] [address] 11/10/2021 Office Visit Pharmacy [facility] [address] [place] [address] 11/15/2021 Laboratory Laboratory Processing [facility], [facility] Mobile Home Draw [address] [place] [address] 11/16/2021 Office Visit Family Medicine Vanita Dunn MD [address] [place] [address] 11/26/2021 Hem/Onc Treatment Hematology Oncology [place], Chair 4 Hem Onc Scenery [address] [place] [address] 11/29/2021 Laboratory Laboratory Processing [facility], [facility] Mobile Home Draw [address] [place] [address] 11/30/2021 Home Visit Family Medicine Kaylee Barakat, [facility] Psychologist Social [address] [place] [address] 12/13/2021 Laboratory Laboratory Processing [facility], [facility] Mobile Home Draw [address] [place] [address] 12/17/2021 Hem/Onc Treatment Hematology Oncology [place], Chair 2 Hem Onc [address]en[address] [place] [address] 12/22/2021 Office Visit Endocrinology Alberta Duque PA-C [address] [place] [address] 12/23/2021 Office Visit Gastroenterology Lyssa Stout CRNP [address] [place] [address] 12/27/2021 Laboratory Laboratory Processing [facility], [facility] Mobile Home Draw [address] [place] [address] 01/04/2022 Office Visit Hematology Oncology Tono Sanchez MD [address] [place] [address] 01/07/2022 Hem/Onc Treatment Hematology Oncology [place], Chair 1 Hem Onc [address]en[address] [facility] [place], [place] [address] 01/10/2022 Laboratory Laboratory Processing [facility], [facility] Mobile Home Draw [address] [place] [address] 01/24/2022 Laboratory Laboratory Processing [facility], [facility] Mobile Home Draw [address] [place] [address] 01/28/2022 Hem/Onc Treatment Hematology Oncology [place], Chair 1 Hem Onc [address]en[address] [place] [address] 02/07/2022 Laboratory Laboratory Processing [facility], [facility] Mobile Home Draw [address] [place] [address] 02/18/2022 Hem/Onc Treatment Hematology Oncology [place], Chair 1 Hem Onc Scen[address] [place] [address] 02/21/2022 Laboratory Laboratory Processing [facility], [facility] Mobile Home Draw [address] [place] [address] 03/07/2022 Laboratory Laboratory Processing [facility] Mobile Home Draw [address] [place] [address] 03/11/2022 Hem/Onc Treatment Hematology Oncology [place], Chair 1 Hem Onc [address]en[address] [place] [address] 03/24/2022 Office Visit Pulmonary Reynaldo Marquez MD [address] [place] [address] 04/01/2022 Hem/Onc Treatment Hematology Oncology [place], Chair 1 Hem Onc [address]en[address] [place] [address] 04/22/2022 Hem/Onc Treatment Hematology Oncology [place], Chair 1 Hem Onc [address]en[address] [place] [address] 06/24/2022 Office Visit Sleep Disorders Love Francisco, DO [address] [facility] [place] [address] Scheduled Procedures Name Priority Associated Diagnoses Date/Ti [...] of this encounter Implants Implanted Type Area Zipper Cutter Device Identifier Shelf Expiration Date Model / Serial / Lot Microtech Sure Clip Implanted:Qty: 2 on 06/03/2020 by Janis Hatch DO at OR [facility] Clip N/A: Colon 04/21/2022 [facility]-F-26-2 35-C-R / / [id number] documented as of this encounter Advance Directives Documents on File Type Date Recorded Patient Supplier Relationship Director 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 WILL AND HEALTH CARE POA Power of Marketing Planning Manager 04/29/2021 12:00 AM TOM R OF RN PHYSICIAN OFFICE HEALTH CARE POA Advanced Directive 04/01/2021 1:14 [...] Syed Bustos Spouse Emergency Contact Care Teams Legal Contracts Specialist Relationship Specialty Start Date End Date Vanita Dunn MD [address] [place], [place] [id number] PCP - General Family Medicine 03/16/21 documented as of this encounter
--- OUTSIDE RECORDS SUMMARY | 2023-05-10 19:25 | External Medical Summary ---
Author Name Unknown Address Unknown Organization [facility] [address] [place] [address] Laboratory Report Ordering Provider Test Date Status JACOB CORBETT 10/18/2021 08:24:00 Final Observation Date Value Abnormality Reference (Units ) Status SYNC LEUKOCYTES IN BLOOD BY AUTOMATED COUNT 10/18/2021 08:24:00 2.40 Below low normal 4.00-10.80 (K/uL) Final Segs 10/18/2021 08:24:00 43.0 40.0-75.0 (%) Final Lymphs % 10/18/2021 08:24:00 35.4 18.0-42.0 (%) Final Monos 10/18/2021 08:24:00 15.8 Above high normal 1.0-11.0 (%) Final Eosinophils 10/18/2021 08:24:00 5.0 0.0-6.0 (%) Final Basos 10/18/2021 08:24:00 0.8 0.0-2.0 (%) Final Absolute Segs 10/18/2021 08:24:00 1.03 Below low normal 1.80-7.70 (K/uL) Final Lymphs, absolute 10/18/2021 08:24:00 0.85 Below low normal 1.00-4.80 (K/ul) Final Monos, Abs 10/18/2021 08:24:00 0.38 0.00-1.10 (K/uL) Final Eos, Abs 10/18/2021 08:24:00 0.12 0.00-0.70 (K/uL) Final Basos, Abs 10/18/2021 08:24:00 0.02 0.00-0.20 (K/uL) Final Performing Location [facility] [address] [place] [address]
--- OUTSIDE RECORDS SUMMARY | 2023-05-10 19:25 | External Medical Summary | Summary of Care ---
Author Name Unknown Organization [facility] Address [place] [address] Care Team Providers Care Paper Bag Maker Name Role Phone Vanita Dunn MD Primary Care Provid er Reason for Visit * Reason Onset Date Comments [facility]: Acute 10/20/2021 Encounter Details Date Type Department Care Team Description 10/20/2021 Telephone [facility], [facility] [address] [facility] [place] [address] [facility], Nurse [facility] [address] [facility] [place] [address] [facility]: Acute Allergies Active Allergy [...] 120 Vial 11 10/02/2019 Active nystatin (NYSTOP) 816944 UNIT/GM powder Apply topically to affected area [...] of Breath, Informant: Pharmacy, Reported on 02/04/2021 DexHere On Biz G6 Garbage Stoker Device Use as directed. 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 She [...] call: Acute Appointment scheduled for same day: Shira, appt scheduled for tomorrow Provider Name: July Poe Treatment plan until appointment: continue to monitor and call back to [facility] intake with any changes in conditons. Call back instructions provided to patient. documented in this encounter Plan of Treatment Upcoming Encounters Date Type Specialty Care Team Description 10/21/2021 Home Visit [facility] July Poe RN [address] [place] [address] 10/22/2021 Scheduled Telephone [facility] Conservation [facility], [facility] [address] [place] [address] 10/22/2021 Office Visit Sleep Disorders Love Francisco DO [address] [place] [address] 10/28/2021 Home Visit [facility] July Poe, RN [address] [place] [address] 10/29/2021 Office Visit Cardiology Quyen Canseco CRNP [address] [place] [address] 11/01/2021 Laboratory Laboratory Processing [facility] Draw [address] [place] [address] 11/05/2021 Hem/Onc Treatment Hematology Oncology Mary[place], Chair 11 Hem Onc Sc[address]ery [address] [place] [address] 11/10/2021 Office Visit Pharmacy [facility] [address] [place] [address] 11/15/2021 Laboratory Laboratory Processing [facility] Home Draw [address] [place] [address] 11/16/2021 Office Visit Family Medicine Vanita Dunn MD [address] [place] [address] 11/26/2021 Hem/Onc Treatment Hematology Oncology [place], Chair 4 Hem Onc Scenery [address] [place] [address] 11/29/2021 Laboratory Laboratory Processing [facility] Mobile Home Draw [address] [place] [address] 11/30/2021 Home Visit Family Medicine Kaylee Barakat, Community Health Analysis Consultant [address] [place] [address] 12/13/2021 Laboratory Laboratory Processing [facility] Mobile Home Draw [address] [place] [address] 12/17/2021 Hem/Onc Treatment Hematology Oncology [place], Chair 2 Hem Onc Scenery [address] [place] [address] 12/22/2021 Office Visit Endocrinology Alberta Duque PA-C [address] [place] [address] 12/23/2021 Office Visit Gastroenterology Lyssa Stout CRNP 132 [place] [address] 12/27/2021 Laboratory Laboratory Processing [facility] Mobile Home Draw [address] [place] [address] 01/04/2022 Office Visit Hematology Oncology Tono Sanchez MD [address] [place] [address] 01/07/2022 Hem/Onc Treatment Hematology Oncology [place], Chair 1 Hem Onc Scenery 200 [facility] [place] [address] 01/10/2022 Laboratory Laboratory Processing [facility] Mobile Home Draw [address] [place] [address] 01/24/2022 Laboratory Laboratory Processing [facility] Mobile Home Draw [address] [place] [address] 01/28/2022 Hem/Onc Treatment Hematology Oncology [place], Chair 1 Hem Onc Scenery 200 [facility] [place] [address] 02/07/2022 Laboratory Laboratory Processing [facility] Mobile Home Draw [address] [place] [address] 02/18/2022 Hem/Onc Treatment Hematology Oncology [place], Chair 1 Hem Onc Scenery [address] [place] [address] 02/21/2022 Laboratory Laboratory Processing [facility], [facility] Mobile Home Draw [address] [place] [address] 03/07/2022 Laboratory Laboratory Processing [facility], [facility] Mobile Home Draw [address] [place] [address] 03/11/2022 Hem/Onc Treatment Hematology Oncology [place], Chair 1 Hem Onc Scenery [address] [place] [address] 03/24/2022 Office Visit Pulmonary Reynaldo Marquez MD [address] [place] [address] 04/01/2022 Hem/Onc Treatment Hematology Oncology [place], Chair 1 Hem Onc Scenery [address] [place] [address] 04/22/2022 Hem/Onc Treatment Hematology Oncology [place], Chair 1 Hem Onc Scenery [address] [place] [address] 06/24/2022 Office Visit Sleep Disorders Love Francisco, DO 132 [facility] [place] [address] Scheduled Procedures Name Priority Associated Diagnoses Date/Ti [...] of this encounter Implants Implanted Type Area Rotor Pilot Device Identifier Shelf Expiration Date Model / Serial / Lot Microtech Sure Clip Implanted:Qty: 2 on 06/03/2020 by Janis Hatch DO at OR [facility] Clip N/A: Colon 04/21/2022 RO[facility]-F-26-2 35-C-R / / [id number] documented as of this encounter Advance Directives Documents on File Type Date Recorded Patient Qc Chemist 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 WILL AND HEALTH CARE POA Power of Pack Out Operator 04/29/2021 12:00 AM [facility] R OF GRITTING MACHINE OPERATOR HEALTH CARE POA Advanced Directive [...] Spouse Emergency Contact Care Teams Paper Bag Maker Relationship Specialty Start Date End Date Vanita Dunn MD [address], [place] [id number] PCP - General Family Medicine 03/16/21 documented as of this encounter
--- OUTSIDE RECORDS SUMMARY | 2023-05-10 19:25 | External Medical Summary ---
Author Name Unknown Address Unknown Organization K01:LABORATORY [facility] - [address] [place] [address] Laboratory Report Ordering Provider Test Date Status JACOB CORBETT 10/18/2021 08:24:00 Final Observation Date Value Abnormality Reference (Units ) Status Iron 10/18/2021 08:24:00 35 33-151 (ug/dL) Final Iron-binding capacity 10/18/2021 08:24:00 278 250-425 (ug/dL) Final Transferrin Sat % 10/18/2021 08:24:00 13 Below low normal 15-55 (%) Final Performing Location LABORATORY C - [address] [place] [address]
--- OUTSIDE RECORDS SUMMARY | 2023-05-10 19:25 | External Medical Summary | Summary of Care ---
Author Name Unknown Organization [facility] Address [place] [address] Care Team Providers Care Business Intelligence Director Name Role Phone Vanita Dunn MD Primary Care Provid er Reason for Visit * Reason Onset Date Comments [facility]: Acute 10/20/2021 Encounter Details Date Type Department Care Team Description 10/20/2021 Telephone [facility], [facility] 132 [facility] [place] [address] [facility], Nurse [facility] [address] [facility] [place] [address] [facility]: Acute Allergies Active Allergy [...] 120 Vial 11 10/02/2019 Active nystatin (NYSTOP) 226894 UNIT/GM powder Apply topically to affected area [...] of Breath, Informant: Pharmacy, Reported on 02/04/2021 DexGuard RFID Solutions G6 Strawberry Grower Device Use as directed. 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 She [...] continue to monitor and call back to [facility] intake with any changes in conditons. Call back instructions provided to patient. documented in this encounter Plan of Treatment Upcoming Encounters Date Type Specialty Care Team Description 10/21/2021 Home Visit [facility] July Poe RN [address] [place] [address] 10/22/2021 Office Visit Sleep Disorders Love Francisco DO [address] [place] [address] 10/28/2021 Home Visit [facility] July Poe RN [address] [place] [address] 10/29/2021 Office Visit Cardiology Ajith, ZAK Quiñones [address] [place] [address] 11/01/2021 Laboratory Laboratory Processing [facility] Mobile Home Draw [address] [place] [address] 11/05/2021 Hem/Onc Treatment Hematology Oncology [place], Chair 11 Hem Onc Scenery [address] [place] [address] 11/10/2021 Office Visit Pharmacy [facility] [address] [place] [address] 11/15/2021 Laboratory Laboratory Processing [facility] Mobile Home Draw [address] [place] [address] 11/16/2021 Office Visit Family Medicine Vanita Dunn MD [address] [place] [address] 11/26/2021 Hem/Onc Treatment Hematology Oncology [place], Chair 4 Hem Onc Scenery [address] [place] [address] 11/29/2021 Laboratory Laboratory Processing [facility], [facility] Mobile Home Draw [address] [place] [address] 11/30/2021 Home Visit Family Medicine Kaylee Barakat, Community Health Global Climate Change Researcher [address] [place] [address] 12/13/2021 Laboratory Laboratory Processing [facility] Mobile Home Draw [address] [place] [address] 12/17/2021 Hem/Onc Treatment Hematology Oncology [place], Chair 2 Hem Onc Scenery 200 [facility] [place] [address] 12/22/2021 Office Visit Endocrinology Alberta Duque PA-C [address] [place] [address] 12/23/2021 Office Visit Gastroenterology Lyssa Stout CRNP [address] [place] [address] 12/27/2021 Laboratory Laboratory Processing [facility], [facility] Mobile Home Draw [address] [place] [address] 01/04/2022 Office Visit Hematology Oncology Tono Sanchez MD [address] [place] [address] 01/07/2022 Hem/Onc Treatment Hematology Oncology [place], Chair 1 Hem Onc Scenery 200 [facility] [place] [address] 01/10/2022 Laboratory Laboratory Processing [facility], [facility] Mobile Home Draw [address] [place] [address] 01/24/2022 Laboratory Laboratory Processing [facility], [facility] Mobile Home Draw [address] [place] [address] 01/28/2022 Hem/Onc Treatment Hematology Oncology [place], Chair 1 Hem Onc Scenery 200 [facility] [place] [address] 02/07/2022 Laboratory Laboratory Processing [facility] Mobile Home Draw [address] [place] [address] 02/18/2022 Hem/Onc Treatment Hematology Oncology [place], Chair 1 Hem Onc Scenery [address] [place] [address] 02/21/2022 Laboratory Laboratory Processing [facility] Mobile Home Draw [address] [place] [address] 03/07/2022 Laboratory Laboratory Processing [facility] Mobile Home Draw [address] [place] [address] 03/11/2022 Hem/Onc Treatment Hematology Oncology [place], Chair 1 Hem Onc Scenery [address] [place] [address] 03/24/2022 Office Visit Pulmonary Reynaldo Marquez MD [address] [place] [address] 04/01/2022 Hem/Onc Treatment Hematology Oncology [place], Chair 1 Hem Onc Scenery [address] [place] [address] 04/22/2022 Hem/Onc Treatment Hematology Oncology [place], Chair 1 Hem Onc Scenery [address] [place] [address] 06/24/2022 Office Visit Sleep Disorders Love Francisco, DO 132 [facility] [place] [address] Scheduled Procedures Name Priority Associated Diagnoses Date/Ti [...] of this encounter Implants Implanted Type Area Smash Fixer Device Identifier Shelf Expiration Date Model / Serial / Lot Microtech Sure Clip Implanted:Qty: 2 on 06/03/2020 by Janis Hatch DO at OR [facility] Clip N/A: Colon 04/21/2022 [facility]-F-26-2 35-C-R / / [id number] documented as of this encounter Advance Directives Documents on File Type Date Recorded Patient Lead Cashier 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 WILL AND HEALTH CARE POA Power of Fairing Worker 04/29/2021 12:00 AM TOM R OF ELDERLY SITTER HEALTH CARE POA Advanced Directive 04/01/2021 1:14 [...] Bustos Spouse Emergency Contact Care Teams Business Intelligence Director Relationship Specialty Start Date End Date Vanita Dunn MD [address] [place] [address] PCP - General Family Medicine 03/16/21 documented as of this encounter
--- OUTSIDE RECORDS SUMMARY | 2023-05-10 19:25 | External Medical Summary ---
Author Name Unknown Address Unknown Organization K01:LABORATORY C - [address] [place] [address] Laboratory Report Ordering Provider Test Date Status JACOB CORBETT 10/18/2021 08:24:00 Final Observation Date Value Abnormality Reference (Units ) Status Ferritin 10/18/2021 08:24:00 36 13-150 (ng /mL) Final Performing Location [facility]ORY [facility] - [address] [place] [address]
--- OUTSIDE RECORDS SUMMARY | 2023-05-10 19:25 | External Medical Summary ---
Author Name Unknown Address Unknown Organization K0G:LABORATORY [facility] [place] [address] - [address] [place] [address] Laboratory Report Ordering Provider Test Date Status JACOB CORBETT 10/18/2021 08:24:00 Final Observation Date Value Abnormality Reference (Units ) Status WBC, Total 10/18/2021 08:24:00 2.40 Below low normal 4. 00-10.80 (K/uL) Final RBC 10/18/2021 08:24:00 2.70 Below low normal 3.8 5-5.15 (M/uL) Final Hemoglobin 10/18/2021 08:24:00 7.8 Below low normal 12 .0-15.3 (g/dL) Final HCT 10/18/2021 08:24:00 25.5 Below low normal 36. 0-45.2 (%) Final MCV 10/18/2021 08:24:00 94.4 81.5-97.5 (fL) Final MCH 10/18/2021 08:24:00 28.9 27.0-34.0 (pg) Final MCHC 10/18/2021 08:24:00 30.6 Below low normal 32. 0-36.0 (g/dL) Final RDW 10/18/2021 08:24:00 19.8 Above high normal 11 .5-15.5 (%) Final Platelets 10/18/2021 08:24:00 64 Below low normal 140 -400 (K/uL) Final MPV 10/18/2021 08:24:00 Final Performing Location LABORATORY [facility] [place] 57[address] 0 - [address] [place] [address]
--- OUTSIDE RECORDS SUMMARY | 2023-05-10 19:26 | External Medical Summary | Summary of Care ---
Author Name Unknown Organization [facility] Address [place] [address] Care Team Providers Care Operating Room Nurse Name Role Phone Vanita Dunn MD Primary Care Provid er Reason for Visit * Reason Onset Date Comments [facility]: Maintenance 10/15/2021 Encounter Details Date Type Department Care Team Description 10/15/2021 Telephone [facility], [facility] 132 [facility] [place] [address] [facility], Nurse [facility] 132 [facility] [place] [address] [facility]: Maintenance Allergies Active Allergy Reactions Severity Noted Date Comments Adhesive Tape Itching 04/29/2020 Penicillins Rash 02/12/2008 Perflutren Protein A Microsph 2019 Definity-lower back pain documented as of this encounter (statuses as of 10/15/2021) Medications Medication Sig Dispensed Refills Start Date End Date Status albuterol sulfate (PROVENTIL) (2.5 MG/3ML) 0.083% nebulizer solutionIndications: Pulmonary vascular congestion Inhale 1 Vial via nebulizer every 6 hours as needed for Wheezing. 120 Vial 11 10/02/2019 Active nystatin (NYSTOP) 895895 UNIT/GM powder Apply topically to affected area [...] of Breath, Informant: Pharmacy, Reported on 02/04/2021 DexMassive Solutions G6 Lump Receiver Device Use as directed. To test blood [...] Strip 3 10/29/2020 Active OneTouch Delica Plus [id number] TESTING once daily 100 Each 3 10/29/2020 [...] as of this encounter (statuses as of 10/15/2021) Active Problems Problem Noted Date Food insecurity [...] as of this encounter (statuses as of 10/15/2021) Resolved Problems Problem Noted Date Resolved Date [...] pain 01/24/2012 01/17/2017 Genetic Sleep Disorder Research Other*[id number] 05/13/2011 04/07/2016 Obstructive sleep apnea 01/18/2011 12/27/19 [...] as of this encounter (statuses as of 10/15/2021) Immunizations Name Administration Dates Next Due COVID-19 [...] Telephone Encounter - Lakeshia Flores RN - 10/15/2021 2:37 PM EST Phone call from patient regarding her Linzess. Wants to know if she should take it or not. States she was told by a doctor to not take the Linzess, caller transferred to GI office at [facility]. ARASH Rodriguez [facility]per [facility] at Home documented in this encounter Plan of Treatment Upcoming Encounters Date Type Specialty Care Team Description 10/18/2021 Laboratory Laboratory Processing [facility] Mobile Home Draw [address] [place] [address] 10/19/2021 Appointment Radiology 10/19/2021 Appointment Radiology 10/19/2021 Appointment Radiology 10/22/2021 Office Visit Sleep Disorders Love Francisco DO [address] [place] [address] 10/29/2021 Office Visit Cardiology Quyen Canseco CRNP [address] [place] [address] 11/01/2021 Laboratory Laboratory Processing c, [facility] Mobile Home Draw [address] [place] [address] 11/05/2021 Hem/Onc Treatment Hematology Oncology [place], Chair 11 Hem Onc Scenery [address] [address] 11/10/2021 Office Visit [facility] [address] [place] [address] 11/15/2021 Laboratory Laboratory Processing [facility], [facility] Mobile Home Draw [address] [place] [address] 11/16/2021 Office Visit Family Medicine Vanita Dunn MD [address] [place] [address] 11/26/2021 Hem/Onc Treatment Hematology Oncology [place], Chair 4 Hem Onc Scenery [address] [place] [address] 11/29/2021 Laboratory Laboratory Processing [facility], [facility] Mobile Home Draw [address] [place] [address] 11/30/2021 Home Visit Family Medicine Kaylee Barakat, Community Health Knitting Machine Operator Helper [address] [place] [address] 12/13/2021 Laboratory Laboratory Processing [facility], [facility] Mobile Home Draw [address] [place] [address] 12/17/2021 Hem/Onc Treatment Hematology Oncology [place], Chair 2 Hem Onc Scenery 200 [facility] [place] [address] 12/22/2021 Office Visit Endocrinology Alberta Duque PA-C [address] [place] [address] 12/23/2021 Office Visit Gastroenterology Lyssa Stout CRNP [address] [place] [address] 12/27/2021 Laboratory Laboratory Processing [facility], [facility] Mobile Home Draw [address] [place] [address] 01/04/2022 Office Visit Hematology Oncology Tono Sanchez MD 200 [place] [address] 01/07/2022 Hem/Onc Treatment Hematology Oncology [place], Chair 1 Hem Onc Scenery [address] [place] [address] 01/10/2022 Laboratory Laboratory Processing [facility], [facility] Mobile Home Draw [address] [place] [address] 01/24/2022 Laboratory Laboratory Processing [facility], [facility] Mobile Home Draw [address] [place] [address] 01/28/2022 Hem/Onc Treatment Hematology Oncology [place], Chair 1 Hem Onc Scenery 200 [place] [address] 02/07/2022 Laboratory Laboratory Processing [facility], [facility] Mobile Home Draw [address] [place] [address] 02/18/2022 Hem/Onc Treatment Hematology Oncology [place], Chair 1 Hem Onc Scenery [address] [place] [address] 02/21/2022 Laboratory Laboratory Processing [facility], [facility] Mobile Home Draw [address] [place] [address] 03/07/2022 Laboratory Laboratory Processing [facility], [facility] Mobile Home Draw [address] [place] [address] 03/11/2022 Hem/Onc Treatment Hematology Oncology [place], Chair 1 Hem Onc Scenery [address] [place] [address] 03/24/2022 Office Visit Pulmonary Reynaldo Marquez MD [address] [place] [id number] 04/01/2022 Hem/Onc Treatment Hematology Oncology [place], Chair 1 Hem Onc Scenery [address] [place] [address] 04/22/2022 Hem/Onc Treatment Hematology Oncology [place], Chair 1 Hem Onc Scenery [address] [place] [address] 06/24/2022 Office Visit Sleep Disorders Love Francisco, DO 132 [facility] [place] [address] Scheduled Procedures Name Priority Associated Diagnoses Date/Ti [...] of this encounter Implants Implanted Type Area Life Science Taxonomist Device Identifier Shelf Expiration Date Model / Serial / Lot Microtech Sure Clip Implanted:Qty: 2 on 06/03/2020 by Janis Hatch DO at OR [facility] Clip N/A: Colon 04/21/2022 [facility]-F-26-2 35-C-R / / [id number] documented as of this encounter Advance Directives Documents on File Type Date Recorded Patient Visitor Services Representative 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 WILL AND HEALTH CARE POA Power of Packaging Designer 04/29/2021 12:00 AM TOM R OF OXIDIZED FINISH PLATER HEALTH CARE POA Advanced Directive 04/01/2021 1:14 [...] Bustos Spouse Emergency Contact Care Teams Operating Room Nurse Relationship Specialty Start Date End Date Vanita Dunn MD [address] [place] [address] PCP - General Family Medicine 03/16/21 documented as of this encounter
--- OUTSIDE RECORDS SUMMARY | 2023-05-10 19:27 | External Medical Summary | Summary of Care ---
Author Name Unknown Organization [place] [address] Care Team Providers Care Coding Clerks Supervisor Name Role Phone Vanita Dunn MD Primary Care Provid er Reason for Visit * Reason Onset Date Comments [facility]: Maintenance 10/14/2021 Encounter Details Date Type Department Care Team Description 10/14/2021 Telephone [facility], [facility] [place] [address] Services, Scheduling [address] [place] [address] [facility]: Maintenance Allergies Active Allergy Reactions Severity Noted Date Comments Adhesive Tape Itching 04/29/2020 Penicillins Rash 02/12/2008 Perflutren Protein A Microsph 2019 Definity-lower back pain documented as of this encounter (statuses as of 10/14/2021) Medications Medication Sig Dispensed Refills Start Date End Date Status albuterol sulfate (PROVENTIL) (2.5 MG/3ML) 0.083% nebulizer solutionIndications: Pulmonary vascular congestion Inhale 1 Vial via nebulizer every 6 hours as needed for Wheezing. 120 Vial 11 10/02/2019 Active nystatin (NYSTOP) 337029 UNIT/GM powder Apply topically to affected area [...] Informant: Pharmacy, Reported on 02/04/2021 Dexcom G6 Emr Analyst Device Use as directed. 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 Possible small R ear serous effusion. She just finished course of prednisone and levaquin for pneumonia. She continues to use flonase. * Telephone Encounter - THAD Haas - 10/14/2021 3:42 PM EST Patient needed a visit with ENT, please assist with scheduling. THAD Haas documented in this encounter Plan of Treatment Upcoming Encounters Date Type Specialty Care Team Description 10/15/2021 Hem/Onc Treatment Hematology Oncology [place], Chair 9 Hem Onc Scenery [address] [place] [address] 10/18/2021 Laboratory Laboratory Processing [facility] Mobile Home Draw [address] [place] [address] 10/19/2021 Appointment Radiology 10/19/2021 Appointment Radiology 10/19/2021 Appointment Radiology 10/22/2021 Office Visit Sleep Disorders Love Francisco DO [address] [place] [address] 10/29/2021 Office Visit Cardiology Quyen Canseco CRNP [address] [place] [address] 11/01/2021 Laboratory Laboratory Processing [facility] Mobile Home Draw [address] [place] [address] 11/05/2021 Hem/Onc Treatment Hematology Oncology [place], Chair 11 Hem Onc Scenery [address] [place] [address] 11/10/2021 [facility] [address] [place] [address] 11/15/2021 Laboratory Laboratory Processing [facility] Mobile Home Draw [address] [place] [address] 11/16/2021 Office Visit Family Medicine Vanita Dunn MD [address] [place] [address] 11/26/2021 Hem/Onc Treatment Hematology Oncology [place], Chair 4 Hem Onc Scenery [address] [place] [address] 11/29/2021 Laboratory Laboratory Processing [facility] Mobile Home Draw [address] [place] [address] 11/30/2021 Home Visit Family Medicine Kaylee Barakat, Community [facility] Business Analytics Specialist [address] [place] [address] 12/13/2021 Laboratory Laboratory Processing [facility] Mobile Home Draw [address] [place] [address] 12/17/2021 Hem/Onc Treatment Hematology Oncology [place], Chair 2 Hem Onc Scenery [address] [place] [address] 12/22/2021 Office Visit Endocrinology Alberta Duque PA-C [address] [place] [address] 12/23/2021 Office Visit Gastroenterology Lyssa Stout CRNP [address] [place] [address] 12/27/2021 Laboratory Laboratory Processing [facility] Mobile Home Draw [address] [place] [address] 01/04/2022 Office Visit Hematology Oncology Tono Sanchez MD [address] [place] [address] 01/07/2022 Hem/Onc Treatment Hematology Oncology [place], Chair 1 Hem Onc Scenery [address] [place] [address] 01/10/2022 Laboratory Laboratory Processing [facility] Mobile Home Draw [address] [place] [address] 01/24/2022 Laboratory Laboratory Processing [facility] Mobile Home Draw [address] [place] [address] 01/28/2022 Hem/Onc Treatment Hematology Oncology [place], Chair 1 Hem Onc Scenery [address] [place] [address] 02/07/2022 Laboratory Laboratory Processing [facility] Mobile Home Draw [address] [place] [address] 02/18/2022 Hem/Onc Treatment Hematology Oncology [place], Chair 1 Hem Onc Scenery [address] [place] [address] 02/21/2022 Laboratory Laboratory Processing [facility] Mobile Home Draw [address] [place] [address] 03/07/2022 Laboratory Laboratory Processing [facility] Mobile Home Draw [address] [place] [address] 03/11/2022 Hem/Onc Treatment Hematology Oncology [place], Chair 1 Hem Onc Scenery [address] [facility] [address] 03/24/2022 Office Visit Pulmonary Reynaldo Marquez MD [address] [place] [id number] 04/01/2022 Hem/Onc Treatment Hematology Oncology [place], Chair 1 Hem Onc Scenery [address] [place] [address] 04/22/2022 Hem/Onc Treatment Hematology Oncology [place], Chair 1 Hem Onc Scenery [address] [place] [address] 06/24/2022 Office Visit Sleep Disorders Love Francisco, DO [address] [facility] [place] [address] Scheduled Procedures Name Priority Associated Diagnoses Date/Ti [...] of this encounter Implants Implanted Type Area Conditioner Tumbler Operator Device Identifier Shelf Expiration Date Model / Serial / Lot Microtech Sure Clip Implanted:Qty: 2 on 06/03/2020 by Jnais Hatch DO at OR [facility] Clip N/A: Colon 04/21/2022 [facility]-F-26-2 35-C-R / / [id number] documented as of this encounter Advance Directives Documents on File Type Date Recorded 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
--- OUTSIDE RECORDS SUMMARY | 2023-05-10 19:27 | External Medical Summary | Summary of Care ---
Author Name Unknown Organization [place] [address] Care Team Providers Care Senior Controls Analyst Name Role Phone Vanita Dunn MD Primary Care Provid er Reason for Visit * Reason Onset Date Comments [facility]: Maintenance 10/14/2021 Encounter Details Date Type Department Care Team Description 10/14/2021 Telephone [facility], [facility] [place] [address] Services, Scheduling [address] [place] [address] [facility]: Maintenance Allergies Active Allergy [...] 120 Vial 11 10/02/2019 Active nystatin (NYSTOP) 105862 UNIT/GM powder Apply topically to affected area [...] Informant: Pharmacy, Reported on 02/04/2021 Dexcom G6 Entry Level Financial Analyst Device Use as directed. To test [...] Strip 3 10/29/2020 Active OneTouch Delica Plus [id number] TESTING once daily 100 Each 3 10/29/2020 [...] pain 01/24/2012 01/17/2017 Genetic Sleep Disorder Research Other*[id number] 05/13/2011 04/07/2016 Obstructive sleep apnea 01/18/2011 12/27/19 [...] Hem Onc Scenery [address] [place] [address] 10/18/2021 Laboratory Laboratory Processing [facility] [facility] Mobile Home Draw [address] [place] [address] 10/19/2021 Appointment Radiology 10/19/2021 Appointment Radiology 10/19/2021 Appointment Radiology 10/22/2021 Office Visit Sleep Disorders Love Francisco DO [address] [place] [address] 10/29/2021 Office Visit Cardiology Quyen Canseco CRNP [address] [place] [address] 11/01/2021 Laboratory Laboratory Processing [facility] Mobile Home Draw [address] [place] [address] 11/05/2021 Hem/Onc Treatment Hematology Oncology [place], Chair 11 Hem Onc Scenery [address] [place] [address] 11/10/2021 Office Visit Pharmacy [facility] [address] [place] [address] 11/15/2021 Laboratory Laboratory Processing [facility] Mobile Home Draw [address] [place] [address] 11/16/2021 Office Visit Family Medicine Vanita Dunn MD [address] [place] [address] 11/26/2021 Hem/Onc Treatment Hematology Oncology [place], Chair 4 Hem Onc Scenery [address] [place] [address] 11/29/2021 Laboratory Laboratory Processing [facility] Mobile Home Draw [address] [place] [address] 11/30/2021 Home Visit Family Medicine Kaylee Barakat, [facility] Mold Maker Plaster [address] [place] [address] 12/13/2021 Laboratory Laboratory Processing [facility] Mobile Home Draw [address] [place] [address] 12/17/2021 Hem/Onc Treatment Hematology Oncology [place], Chair 2 Hem Onc Scenery [address] [place] [address] 12/22/2021 Office Visit Endocrinology Alberta Duque PA-C [address] [place] [address] 12/23/2021 Office Visit Gastroenterology Lyssa Stotu CRNP [address] [place] [address] 12/27/2021 Laboratory Laboratory Processing [facility] Mobile Home Draw [address] [place] [address] 01/04/2022 Office Visit Hematology Oncology Tono Sanchez MD [address] [place] [address] 01/07/2022 Hem/Onc Treatment Hematology Oncology [place], Chair 1 Hem Onc Scenery [address] [place] [address] 01/10/2022 Laboratory Laboratory Processing [facility] Mobile Home Draw [address] [place] [address] 01/24/2022 Laboratory Laboratory Processing [facility] Mobile Home Draw [address] [place] [address] 01/28/2022 Hem/Onc Treatment Hematology Oncology [place], Chair 1 Hem Onc Scenery [address] [place] [address] 02/07/2022 Laboratory Laboratory Processing [facility] Mobile Home Draw [address] [place] [address] 02/18/2022 Hem/Onc Treatment Hematology Oncology [place], Chair 1 Hem Onc Scenery [address] [place] [address] 02/21/2022 Laboratory Laboratory Processing [facility] Mobile Home Draw [address] [place] [address] 03/07/2022 Laboratory Laboratory Processing [facility] Mobile Home Draw [address] [place] [address] 03/11/2022 Hem/Onc Treatment Hematology Oncology [place], Chair 1 Hem Onc Scenery [address] [facility] [address] 03/24/2022 Office Visit Pulmonary Reynaldo Marquez MD [address] [place] [id number] 04/01/2022 Hem/Onc Treatment Hematology Oncology [place], Chair 1 Hem Onc Scenery [address] [place] [address] 04/22/2022 Hem/Onc Treatment Hematology Oncology [place], Chair 1 Hem Onc Scenery [address] [place] [address] 06/24/2022 Office Visit Sleep Disorders Love Francisco, DO 132 [place] [address] Scheduled Procedures Name Priority Associated Diagnoses Date/Ti [...] of this encounter Implants Implanted Type Area Supervisory Aide Device Identifier Shelf Expiration Date Model / Serial / Lot Microtech Sure Clip Implanted:Qty: 2 on 06/03/2020 by Janis Hatch DO at OR [facility] Clip N/A: Colon 04/21/2022 [facility]-F-26-2 35-C-R / / [id number] documented as of this encounter Advance Directives Documents on File Type Date Recorded 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
--- OUTSIDE RECORDS SUMMARY | 2023-05-10 19:27 | External Medical Summary | Summary of Care ---
Author Name Unknown Organization [place] [address] Care Team Providers Care Director Equipment Name Role Phone Vanita Dunn MD Primary Care Provid er Encounter Details Date Type Department Care Team Description 10/13/2021 Telephone Care Coordination [address] [place], [place] [id number] Kaylee Barakat, Community [facility] Site Monitor [address] [place], [place] [id number] Allergies Active Allergy Reactions Severity Noted Date Comments Adhesive Tape Itching 04/29/2020 Penicillins Rash 02/12/2008 Perflutren Protein A Microsph 2019 Definity-lower back pain documented as of this encounter (statuses as of 10/13/2021) Medications Medication Sig Dispensed Refills Start Date End Date Status albuterol sulfate (PROVENTIL) (2.5 MG/3ML) 0.083% nebulizer solutionIndications: Pulmonary vascular congestion Inhale 1 Vial via nebulizer every 6 hours as needed for Wheezing. 120 Vial 11 10/02/2019 Active nystatin (NYSTOP) 012409 UNIT/GM powder Apply topically to affected area [...] Informant: Pharmacy, Reported on 02/04/2021 Dexcom G6 Fashion Designer Device Use as directed. To test [...] Strip 3 10/29/2020 Active OneTouch Delica Plus [id number] TESTING once daily 100 Each 3 10/29/2020 [...] as of this encounter (statuses as of 10/13/2021) Active Problems Problem Noted Date Food insecurity [...] as of this encounter (statuses as of 10/13/2021) Resolved Problems Problem Noted Date Resolved Date [...] pain 01/24/2012 01/17/2017 Genetic Sleep Disorder Research Other*[id number] 05/13/2011 04/07/2016 Obstructive sleep apnea 01/18/2011 12/27/19 [...] as of this encounter (statuses as of 10/13/2021) Immunizations Name Administration Dates Next Due COVID-19 [...] * Telephone Encounter - [facility] Site Monitor - 10/13/2021 8:51 AM EST Calling tomorrow [place] for status of [facility] at patients request EMILE was unable to speak to a traveling sales representative.I let my name and number in the call back VM Kaylee Barakat [facility] documented in this encounter Plan of Treatment Upcoming Encounters Date Type Specialty Care Team Description 10/14/2021 Telemedicine [facility] Marie Allen PA-C [address] [place] [address] Kaylee Barakat [facility] Site Monitor [address] [facility] [place] [address] 10/15/2021 Hem/Onc Treatment Hematology [place]cology [place], Chair 9 Hem Onc Scenery [address] [place] [address] 10/18/[address] [facility] Mobile Home Draw [address] [place] [address] 10/19/2021 Appointment Radiology 10/19/2021 Appointment Radiology 10/19/2021 Appointment Radiology 10/20/2021 Office Visit Family Medicine Vanita Dunn MD [address] [place] [address] 10/22/2021 Office Visit Sleep Disorders Love Francisco DO [address] [place] [address] 10/29/2021 Office Visit Cardiology Quyen Canseco CRNP 132 [place] [address] 11/01/[address] [facility] Mobile Home Draw [address] [place] [address] 11/05/2021 Hem/Onc Treatment Hematology Oncology [place], Chair 11 Hem Onc Scenery [address] [place] [address] 11/10/2021 Office Visit Pharmacy [facility] [address] [place] [address] 11/15/[address] [facility] Mobile Home Draw [address] [place] [address] 11/26/2021 Hem/Onc Treatment Hematology Oncology [place], Chair 4 Hem Onc Scenery [address] [place] [address] 11/29/2021 Laboratory Laboratory Processing [facility] Mobile Home Draw [address] [place] [address] 12/13/2021 Laboratory Laboratory Processing [facility] Mobile Home Draw [address] [place] [address] 12/17/2021 Hem/Onc Treatment Hematology Oncology [place], Chair 2 Hem Onc [facility] [address] [place] [address] 12/22/2021 Office Visit Endocrinology Alberta Duque PA-C [address] [place] [address] 12/23/2021 Office Visit Gastroenterology Lyssa Stout CRNP [address] [place] [address] 12/27/2021 Laboratory Laboratory Processing [facility] Mobile Home Draw [address] [place] [address] 01/04/2022 Office Visit Hematology Oncology Tono Sanchez MD [address] [place] [address] 01/07/2022 Hem/Onc Treatment Hematology Oncology [place], Chair 1 Hem Onc [facility] [address] [place] [address] 01/10/2022 Laboratory Laboratory Processing [facility] Mobile Home Draw [address] [place] [address] 01/24/2022 Laboratory Laboratory Processing [facility] Mobile Home Draw [address] [place] [address] 01/28/2022 Hem/Onc Treatment Hematology [place]cology [place], Chair 1 Hem Onc Scenery [address] [place] [address] 02/07/2022 Laboratory Laboratory Processing [facility] Mobile Home Draw [address] [place] [address] 02/18/2022 Hem/Onc Treatment Hematology [place]cology [place], Chair 1 Hem Onc Scenery [address] [place] [address] 02/21/2022 Laboratory Laboratory Processing [facility] Mobile Home Draw [address] [place] [address] 03/07/2022 Laboratory Laboratory Processing [facility] Mobile Home Draw [address] [place] [address] 03/11/2022 Hem/Onc Treatment Hematology [place]cology [place], Chair 1 Hem Onc Scenery [address] [place] [address] 03/24/2022 Office Visit Pulmonary Reynaldo Marquez MD [address] [place] [address] 04/01/2022 Hem/Onc Treatment Hematology [place]cology [place], Chair 1 Hem Onc Scenery [address] [place] [address] 04/22/2022 Hem/Onc Treatment Hematology [place]cology [place], Chair 1 Hem Onc Scenery [address] [place] [address] 06/24/2022 Office Visit Sleep Disorders Love Francisco, DO [address] [facility] [place] [address] Scheduled Procedures Name Priority Associated Diagnoses Date/Ti [...] of this encounter Implants Implanted Type Area Cross Country Coach Device Identifier Shelf Expiration Date Model / Serial / Lot Microtech Sure Clip Implanted:Qty: 2 on 06/03/2020 by Janis Hatch DO at OR [facility] Clip N/A: Colon 04/21/2022 [facility]-F-26-2 35-C-R / / [id number] documented as of this encounter Advance Directives Documents on File Type Date Recorded 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
--- OUTSIDE RECORDS SUMMARY | 2023-05-10 19:28 | External Medical Summary | Summary of Care ---
Author Name Unknown Organization [place] [address] Care Team Providers Care Margin Trimmer Name Role Phone Vanita Dunn MD Primary Care Provid er Reason for Visit * Reason Onset Date Comments Scheduling 10/08/2021 Encounter Details Date Type Department Care Team Description 10/08/2021 Telephone Hematology/Oncology [facility] [address] [place] [address] Tono Sanchez MD [address] [place] [address] Scheduling Allergies Active Allergy Reactions Severity Noted Date Comments Adhesive Tape Itching 04/29/2020 Penicillins Rash 02/12/2008 Perflutren Protein A Microsph 2019 Definity-lower back pain documented as of this encounter (statuses as of 10/08/2021) Medications Medication Sig Dispensed Refills Start Date End Date Status albuterol sulfate (PROVENTIL) (2.5 MG/3ML) 0.083% nebulizer solutionIndications: Pulmonary vascular congestion Inhale 1 Vial via nebulizer every 6 hours as needed for Wheezing. 120 Vial 11 10/02/2019 Active nystatin (NYSTOP) 441501 UNIT/GM powder Apply topically to affected area [...] Informant: Pharmacy, Reported on 02/04/2021 Dexcom G6 Photonics Technician Device Use as directed. 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 Sometimes true 11/16/ 2020 Within the past 12 months, t he [...] Telephone Encounter - Lilian Jara CMA - 10/08/2021 1:30 PM EST Patient is scheduled 1 Venofer infusion every 3 weeks from 10/15/21 until 04/22/22 * Telephone Encounter - Dinorah Teixeira LPN - 10/08/2021 11:31 AM EST Patient is aware of treatment every 3 weeks for venofer, first treatment is 10/15/21 at 11:30 am in cycle. [place] created for venofer every 3 weeks and routed to Dr. Sanchez. Patient is aware of home labs CBCd every 2 weeks and ferritin, iron screen every 6 weeks. Scheduling, please schedule patient every [address]. Sanchez, treatment has no endat this time. documented in this encounter Plan of Treatment Upcoming Encounters Date Type Specialty Care Team Description 10/13/2021 Telemedicine [facility] Marie Allen PA-C [address] [facility] [place] [address] Kaylee Barakat, Community Health Retaining Room Cutter [address] [place] [address] 10/15/2021 Hem/Onc Treatment Hematology Oncology [place], Chair 9 Hem Onc Scenery [address] [place] [address] 10/18/2021 Laboratory Laboratory Processing [facility] [place] Mobile Home Draw [address] [place] [address] 10/19/2021 Appointment Radiology 10/19/2021 Appointment Radiology 10/19/2021 Appointment Radiology 10/20/2021 Office Visit Family Medicine Vanita Dunn MD [address], [place] [id number] 10/22/2021 Office Visit Sleep Disorders Love Francisco DO 132 [facility] [address] 10/29/2021 Office Visit Cardiology Quyen Canseco CRNP 132 [place] [address] 11/01/2021 Laboratory Laboratory Processing [facility] [place] Mobile Home Draw [address] [place] [address] 11/05/2021 Hem/Onc Treatment Hematology Oncology [place], Chair 11 Hem Onc Scenery [address] [place] [address] 11/10/2021 Office Visit [facility] [address] [place] [address] 11/15/2021 Laboratory Laboratory Processing [facility] Draw [address] [place] [address] 11/26/2021 Hem/Onc Treatment Hematology Oncology [place], Chair 4 Hem Onc Scenery [address] [place] [address] 11/29/2021 Laboratory Laboratory Processing [facility] Draw [address] [place] [address] 12/13/2021 Laboratory Laboratory Processing [facility] Draw [address] [place] [address] 12/17/2021 Hem/Onc Treatment Hematology Oncology [place], Chair 2 Hem Onc Scenery [address] [place] [address] 12/22/2021 Office Visit Endocrinology Alberta Duque PA-C [address] [place] [address] 12/23/2021 Office Visit Gastroenterology Lyssa Stout CRNP [address] [place] [address] 12/27/2021 Laboratory Laboratory Processing [facility] Mobile [facility] Draw [address] [place] [address] 01/04/2022 Office Visit Hematology Oncology Tono Sanchez MD [address] [place] [address] 01/07/2022 Hem/Onc Treatment Hematology Oncology [place], Chair 1 Hem Onc Scenery [address] [place] [address] 01/10/2022 Laboratory Laboratory Processing [facility] Draw [address] [place] [address] 01/24/2022 Laboratory Laboratory Processing [facility] Draw [address] [place] [address] 01/28/2022 Hem/Onc Treatment Hematology Oncology [place], Chair 1 Hem Onc Scenery [address] [place] [address] 02/07/2022 Laboratory Laboratory Processing [facility] Mobile Home Draw [address] [place] [address] 02/18/2022 Hem/Onc Treatment Hematology Oncology [place], Chair 1 Hem Onc Scenery [address] [facility] [address] 02/21/2022 Laboratory Laboratory Processing c, [facility] Mobile Home Draw [address] [place] [address] 03/07/2022 Laboratory Laboratory Processing [facility] Home Draw [address] [place] [address] 03/11/2022 Hem/Onc Treatment Hematology Oncology [place], Chair 1 Hem Onc Scenery [address] [place] [address] 03/24/2022 Office Visit Reynaldo Marks MD [address] [place] [id number] 04/01/2022 Hem/Onc Treatment Hematology Oncology [place], Chair 1 Hem Onc Scenery [address] [place] [address] 04/22/2022 Hem/Onc Treatment Hematology Oncology [place], Chair 1 Hem Onc Scenery [address] [place] [address] 06/24/2022 Office Visit Sleep Disorders Love Francisco, DO [address] [place] [address] Scheduled Procedures Name Priority Associated Diagnoses Date/Ti [...] of this encounter Implants Implanted Type Area Nuclear Medicine Tech Device Identifier Shelf Expiration Date Model / Serial / Lot Microtech Sure Clip Implanted:Qty: 2 on 06/03/2020 by Janis Hatch DO at OR [facility] Clip N/A: Colon 04/21/2022 [facility]-F-26-2 35-C-R / / [id number] documented as of this encounter Advance Directives Documents on File Type Date Recorded Patient Change Coordinator 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 WILL AND HEALTH CARE POA Power of Ballast Regulator Operator 04/29/2021 12:00 AM TOM R [facility] POA Advanced Directive 04/01/2021 1:14 [...] Syed Bustos Spouse Emergency Contact Care Teams Margin Trimmer Relationship Specialty Start Date End Date Vanita Dunn MD [address] [place] [address] PCP - General Family Medicine 03/16/21 documented as of this encounter
--- OUTSIDE RECORDS SUMMARY | 2023-05-10 19:28 | External Medical Summary | Summary of Care ---
Author Name Unknown Organization [place] [address] Care Team Providers Care Medical Education Coordinator Name Role Phone Vanita Dunn MD Primary Care Provid er Reason for Visit * Reason Onset Date Comments Scheduling 10/08/2021 Encounter Details Date Type Department Care Team Description 10/08/2021 Telephone Hematology/Oncology [facility] [address] [place] [address] Tono Sanchez MD [address] [place] [address] Scheduling Allergies Active Allergy Reactions Severity Noted [...] 120 Vial 11 10/02/2019 Active nystatin (NYSTOP) 081288 UNIT/GM powder Apply topically to affected area [...] Informant: Pharmacy, Reported on 02/04/2021 Dexcom G6 Restaurant Hourly Team Member Device Use as directed. To [...] Strip 3 10/29/2020 Active OneTouch Delica Plus [id number] TESTING once daily 100 Each 3 10/29/2020 [...] pain 01/24/2012 01/17/2017 Genetic Sleep Disorder Research Other*[id number] 05/13/2011 04/07/2016 Obstructive sleep apnea 01/18/2011 12/27/19 [...] is 10/15/21 at 11:30 am in cycle. [place] created for venofer every 3 weeks and routed to Dr. Sanchez. Patient is aware of home labs CBCd every 2 weeks and ferritin, iron screen every 6 weeks. documented in this encounter Plan of Treatment Upcoming Encounters Date Type Specialty Care Team Description 10/13/2021 Telemedicine [facility] Joselin Dawson CRNP 132 [facility] [place] [address] Kaylee Barakat, Community Health Dental Associate [address] [facility] [address] 10/15/2021 Hem/Onc Treatment Hematology Oncology [place], Chair 9 Hem Onc Scenery [address] [place] [address] 10/18/2021 Laboratory Laboratory Processing [facility] Mobile [facility] Draw [address] [place] [address] 10/19/2021 Appointment Radiology 10/19/2021 Appointment Radiology 10/19/2021 Appointment Radiology 10/20/2021 Office Visit Family Medicine Vanita Dunn MD [address] [place] [address] 10/22/2021 Office Visit Sleep Disorders Love Francisco DO [address] [place] [address] 10/29/2021 Office Visit Cardiology Quyen Canseco CRNP [address] [place] [address] 11/01/2021 Laboratory Laboratory Processing [facility] Mobile [facility] Draw [address] [place] [address] 11/10/2021 Office Visit Pharmacy [facility] [address] [place] [address] 11/15/2021 Laboratory Laboratory Processing [facility] Mobile Home Draw [address] [place] [address] 11/29/2021 Laboratory Laboratory Processing [facility] Draw [address] [place] [address] 12/13/2021 Laboratory Laboratory Processing [facility] Mobile Home Draw [address] [place] [address] 12/22/2021 Office Visit Endocrinology Alberta Duque PA-C [address] [place] [address] 12/23/2021 Office Visit Gastroenterology Lyssa Stout CRNP [address] [place] [address] 12/27/2021 Laboratory Laboratory Processing [facility] Draw [address] [place] [address] 01/04/2022 Office Visit Hematology Oncology Tono Sanchez MD 200 [facility], [place] [address] 01/10/2022 Laboratory Laboratory Processing [facility] Mobile Home Draw [address] [place] [address] 01/24/2022 Laboratory Laboratory Processing [facility] Draw [address] [place] [address] 02/07/2022 Laboratory Laboratory Processing [facility] Draw [address] [place] [address] 02/21/2022 Laboratory Laboratory Processing [facility] Draw [address] [place] [address] 03/07/2022 Laboratory Laboratory Processing [facility] Draw [address] [place] [address] 03/24/2022 Office Visit Pulmonary Reynaldo Marquez MD [address] [place] [address] 06/24/2022 Office Visit Sleep Disorders Love Francisco, [address] [place] [address] Scheduled Procedures Name Priority Associated Diagnoses Date/Ti [...] of this encounter Implants Implanted Type Area Junior Linux Administrator Device Identifier Shelf Expiration Date Model / Serial / Lot Microtech Sure Clip Implanted:Qty: 2 on 06/03/2020 by Janis Hatch DO at OR [facility] Clip N/A: Colon 04/21/2022 [facility]-F-26-2 35-C-R / / [id number] documented as of this encounter Advance Directives Documents on File Type Date Recorded Patient Wire Winding Machine Tender 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 AND HEALTH CARE POA Power [facility] 04/29/2021 12:00 AM TOM R [facility] POA Advanced Directive 04/01/2021 1:14 PM [...] Bustos Spouse Emergency Contact Care Teams Medical Education Coordinator Relationship Specialty Start Date End Date Vanita Dunn MD [address] [place] [address] PCP - General Family Medicine 03/16/21 documented as of this encounter
--- OUTSIDE RECORDS SUMMARY | 2023-05-10 19:28 | External Medical Summary | Summary of Care ---
Author Name Unknown Organization [place] [address] Care Team Providers Care Hospital Plan Administrator Name Role Phone Vanita Dunn MD Primary Care Provid er Reason for Visit * Reason Onset Date Comments Scheduling 10/08/2021 Encounter Details Date Type Department Care Team Description 10/08/2021 Telephone Hematology/Oncology [facility] [address] [place] [address] Tono Sanchez MD [address] [place] [address] Scheduling Allergies Active Allergy Reactions Severity Noted [...] 120 Vial 11 10/02/2019 Active nystatin (NYSTOP) 489861 UNIT/GM powder Apply topically to affected area [...] Informant: Pharmacy, Reported on 02/04/2021 Dexcom G6 Wind Up Operator Device Use as directed. To [...] Strip 3 10/29/2020 Active OneTouch Delica Plus [id number] TESTING once daily 100 Each 3 10/29/2020 [...] pain 01/24/2012 01/17/2017 Genetic Sleep Disorder Research Other*[id number] 05/13/2011 04/07/2016 Obstructive sleep apnea 01/18/2011 12/27/19 [...] is 10/15/21 at 11:30 am in cycle. [place] created for venofer every 3 weeks and [...] [facility] Joselin Dawson CRNP 132 [facility] [place] [address] Kaylee Barakat, Community Health Asphalt Paver Operator [address] [place] [address] 10/15/2021 Hem/Onc Treatment Hematology Oncology [place], Chair 9 Hem Onc Scenery [address] [place] [address] 10/18/2021 Laboratory Laboratory Processing [facility] Mobile [facility] Draw [address] [place] [address] 10/19/2021 Appointment Radiology 10/19/2021 Appointment Radiology 10/19/2021 Appointment Radiology 10/20/2021 Office Visit Family Medicine Vanita Dunn MD [address] [place] [address] 10/22/2021 Office Visit Sleep Disorders Love Francisco DO [address] [place] [address] 10/29/2021 Office Visit Cardiology Quyen Canseco CRNP [address] [place] [address] 11/01/2021 Laboratory Laboratory Processing [facility] Draw [address] [place] [address] 11/10/2021 Office Visit Pharmacy [facility] [address] [place] [address] 11/15/2021 Laboratory Laboratory Processing [facility] Mobile Home Draw [address] [place] [address] 11/29/2021 Laboratory Laboratory Processing [facility] Mobile Home Draw [address] [place] [address] 12/13/2021 Laboratory Laboratory Processing [facility] Mobile Home Draw [address] [place] [address] 12/22/2021 Office Visit Endocrinology Alberta Duque PA-C [address] [place] [address] 12/23/2021 Office Visit Gastroenterology Lyssa Stout CRNP [address] [place] [address] 12/27/2021 Laboratory Laboratory Processing [facility] Draw [address] [place] [address] 01/04/2022 Office Visit Hematology Oncology Tono Sanchez MD [address] [place] [address] 01/10/2022 Laboratory Laboratory Processing [facility] Draw [address] [place] [address] 01/24/2022 Laboratory Laboratory Processing [facility] Draw [address] [place] [address] 02/07/2022 Laboratory Laboratory Processing [facility] Draw [address] [place] [address] 02/21/2022 Laboratory Laboratory Processing [facility] Draw [address] [place] [address] 03/07/2022 Laboratory Laboratory Processing [facility] Draw [address] [place] [address] 03/24/2022 Office Visit Pulmonary [place], Reynaldo Lambert MD [address] [place] [address] 06/24/2022 Office Visit Sleep Disorders Love Franciscoaret, [address] [place] [address] Scheduled Procedures Name Priority Associated Diagnoses Date/Ti [...] of this encounter Implants Implanted Type Area Greenhouse Technician Device Identifier Shelf Expiration Date Model / Serial / Lot Microtech Sure Clip Implanted:Qty: 2 on 06/03/2020 by Janis Hatch DO at OR [facility] Clip N/A: Colon 04/21/2022 [facility]-F-26-2 35-C-R / / [id number] documented as of this encounter Advance Directives Documents on File Type Date Recorded Patient Soakers Supervisor 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 LIVING WILL AND HEALTH CARE POA Power [employer] 04/29/2021 12:00 AM TOM [employer] [facility] POA Advanced Directive 04/01/2021 1:14 [...] Syed Bustos Spouse Emergency Contact Care Teams Hospital Plan Administrator Relationship Specialty Start Date End Date Vanita Dunn MD [address] [place] [address] PCP - General Family Medicine 03/16/21 documented as of this encounter
--- OUTSIDE RECORDS SUMMARY | 2023-05-10 19:28 | External Medical Summary | Summary of Care ---
Author Name Unknown Organization [place] [address] Care Team Providers Care Painter Drum Name Role Phone Vanita Dunn MD Primary Care Provid er Reason for Visit * Reason Onset Date Comments Scheduling 10/08/2021 Encounter Details Date Type Department Care Team Description 10/08/2021 Telephone Hematology/Oncology [facility] [address] [place] [address] Tono Sanchez MD 200 [place] [address] Scheduling Allergies Active Allergy Reactions Severity Noted [...] 120 Vial 11 10/02/2019 Active nystatin (NYSTOP) 362603 UNIT/GM powder Apply topically to affected area [...] Informant: Pharmacy, Reported on 02/04/2021 Dexcom G6 Scientologist Device Use as directed. To test blood [...] Strip 3 10/29/2020 Active OneTouch Delica Plus [id number] TESTING once daily 100 Each 3 10/29/2020 [...] pain 01/24/2012 01/17/2017 Genetic Sleep Disorder Research Other*[id number] 05/13/2011 04/07/2016 Obstructive sleep apnea 01/18/2011 12/27/19 [...] is 10/15/21 at 11:30 am in cycle. [place] created for venofer every 3 weeks and routed to Dr. Sanchez. Patient is aware of home labs CBCd every 2 weeks and ferritin, iron screen every 6 weeks. documented in this encounter Plan of Treatment Upcoming Encounters Date Type Specialty Care Team Description 10/13/2021 Telemedicine [facility] Joselin Dawson CRNP 132 [facility] [place] [address] Kaylee Barakat, Community Health Soap Inspector [address] [facility] [address] 10/15/2021 Hem/Onc Treatment Hematology Oncology [place], Chair 9 Hem Onc Scenery [address] [place] [address] 10/18/2021 Laboratory Laboratory Processing [facility] Draw [address] [place] [address] 10/19/2021 Appointment Radiology 10/19/2021 Appointment Radiology 10/19/2021 Appointment Radiology 10/20/2021 Office Visit Family Medicine Vanita Dunn MD [address] [place] [address] 10/22/2021 Office Visit Sleep Disorders Love Francisco DO [address] [place] [address] 10/29/2021 Office Visit Cardiology Quyen Canseco CRNP [address] [place] [address] 11/01/2021 Laboratory Laboratory Processing [facility] Mobile Home Draw [address] [place] [address] 11/10/2021 Office Visit Pharmacy [facility] [address] [place] [address] 11/15/2021 Laboratory Laboratory Processing [facility] Mobile Home Draw [address] [place] [address] 11/29/2021 Laboratory Laboratory Processing [facility] Draw [address] [place] [address] 12/13/2021 Laboratory Laboratory Processing [facility] Home Draw [address] [place] [address] 12/22/2021 Office Visit Endocrinology Alberta Duque PA-C [address] [place] [address] 12/23/2021 Office Visit Gastroenterology Lyssa Stout CRNP [address] [place] [address] 12/27/2021 Laboratory Laboratory Processing [facility] Draw [address] [place] [address] 01/04/2022 Office Visit Hematology Oncology Tono Sanchez MD 200 [facility], [place] [address] 01/10/2022 Laboratory Laboratory Processing [facility] Draw [address] [place] [address] 01/24/2022 Laboratory Laboratory Processing [facility] Draw [address] [place] [address] 02/07/2022 Laboratory Laboratory Processing [facility] Draw [address] [place] [address] 02/21/2022 Laboratory Laboratory Processing [facility] Draw [address] [place] [address] 03/07/2022 Laboratory Laboratory Processing [facility] Draw [address] [place] [address] 03/24/2022 Office Visit Pulmonary Reynaldo Marquez MD [address] [place] [address] 06/24/2022 Office Visit Sleep Disorders Love Francisco, [address] [place] [address] Scheduled Procedures Name Priority Associated Diagnoses Date/Ti [...] of this encounter Implants Implanted Type Area Community Services Officer Device Identifier Shelf Expiration Date Model / Serial / Lot Microtech Sure Clip Implanted:Qty: 2 on 06/03/2020 by Janis Hatch DO at OR [facility] Clip N/A: Colon 04/21/2022 [facility]-F-26-2 35-C-R / / [id number] documented as of this encounter Advance Directives Documents on File Type Date Recorded Patient Cat Sitter 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 LIVING WILL AND HEALTH CARE POA Power [facility] 04/29/2021 12:00 AM TOM R [facility] POA Advanced Directive 04/01/2021 1:14 PM Advanced [...] Syed Bustos Spouse Emergency Contact Care Teams Painter Drum Relationship Specialty Start Date End Date Vanita Dunn MD [address] [place] [address] PCP - General Family Medicine 03/16/21 documented as of this encounter
--- OUTSIDE RECORDS SUMMARY | 2023-05-10 19:29 | External Medical Summary | Summary of Care ---
Author Name Unknown Organization [place] [address] Care Team Providers Care Insulation Power Unit Tender Name Role Phone Vanita Dunn MD Primary Care Provid er Reason for Referral * Evaluate & Treat - Unlimited Visits (Within 10 days (routine)) - Authorized Specialty Diagnoses / Procedures Referred By Evangelina jeter Referred To Contact Otolaryngology Diagnoses Right acute serous otitis media, recurrence not specified Dysfunction of both eustachian tubes [facility] [address] [facility] [address] Referral ID Status Reason Start Date Expiration Date Visits Requested Visits Authorized [id number] Authorized Specialty Services Required 10/06/2021 1 1 Question Answer Referral Priority Within 10 days (routine) Reason for Referral: Otology/Hearing/Balance Specific Condition: Otalgia Comments Pt complaints of bilat ear fullness since Nov. Possible small R ear serous effusion. She just finished course of prednisone and levaquin for pneumonia. She continues to use flonase. Encounter Details Date Type Department Care Team Description 10/06/2021 Telemedicine ising at [place], [facility] [address] [facility] [place] [address] Joselin Dawson CRNP [address] [facility] [place] [address] Kaylee Barakat, Community Health Chief Nuclear Medicine Technologist [address] [place] [address] Hepatic cirrhosis, unspecified hepatic cirrhosis type, unspecified whether ascites present (HCC)*; Other cerebral palsy (HCC); Hypertensive heart disease with chronic diastolic congestive heart failure (HCC); Chronic hypoxemic respiratory failure (HCC); Asthma in adult, moderate persistent, uncomplicated; Iron deficiency anemia due to chronic blood loss; Right acute serous otitis media, recurrence not specified; Dysfunction of both eustachian tubes; Urinary incontinence, unspecified type Allergies Active Allergy Reactions Severity Noted Date Comments Adhesive Tape Itching 04/29/2020 Penicillins Rash 02/12/2008 Perflutren Protein A Microsph 2019 Definity-lower back pain documented as of this encounter (statuses as of 10/06/2021) Medications Medication Sig Dispensed Refills Start Date End Date Status albuterol sulfate (PROVENTIL) (2.5 MG/3ML) 0.083% nebulizer solutionIndications: Pulmonary vascular congestion Inhale 1 Vial via nebulizer every 6 hours as needed for Wheezing. 120 Vial 11 10/02/2019 Active nystatin (NYSTOP) 667536 UNIT/GM powder Apply topically to affected area [...] Informant: Pharmacy, Reported on 02/04/2021 Dexcom G6 Financial Services Associate Device Use as directed. To test [...] Strip 3 10/29/2020 Active OneTouch Delica Plus [id number] TESTING once daily 100 Each 3 10/29/2020 [...] less than 7.0% ([facility]) Inject one pen (4.5 mg) under [...] 10 days 3 Each 3 09/27/2021 Active levoFLOXacin 750 MG Oral Tablet (Levaquin) Take 1 Tablet by mouth daily for 5 days. until gone. 5 Tablet 0 10/02/2021 2 Active Disposable Brief X-LargeIndications:H ypertensive heart disease with chronic diastolic congestive heart failure (HCC),Hepatic cirrhosis, unspecified hepatic cirrhosis type, unspecified whether ascites present (HCC),Other cerebral palsy (HCC),Urinary incontinence, unspecified type,Frequent fecal incontinence Use as directed 60 Each 5 10/06/2021 Active documented as of this encounter (statuses as of 10/06/2021) Active Problems Problem Noted Date Food insecurity [...] as of this encounter (statuses as of 10/06/2021) Resolved Problems Problem Noted Date Resolved Date [...] 0 Bladder tumor 10/11/2017 02/13/2018 Chronic indwelling Nova catheter 10/11/2017 02/13/2018 Recurrent UTI 10/11/2017 02/13/2018 [...] pain 01/24/2012 01/17/2017 Genetic Sleep Disorder Research Other*[id number] 05/13/2011 04/07/2016 Obstructive sleep apnea 01/18/2011 12/27/19 [...] as of this encounter (statuses as of 10/06/2021) Immunizations Name Administration Dates Next Due COVID-19 [...] Reading Time Taken Comments Blood Pressure 108/64 10/06/2021 2:17 PM EST Pulse 70 10/06/2021 2:17 PM EST Temperature 36.7 C (98 F) 10/06/2021 2:17 PM EST Respiratory Rate 16 10/06/2021 2:17 PM EST Oxygen Saturation 94% 10/06/2021 2:17 PM EST Inhaled Oxygen Concentration - - [...] of this encounter Progress Notes * ZAK Lara - 10/06/2021 2:00 PM EST [facility] Tele[facility] Visit Date: 10/06/2021 Plan/Discussion: Pt feeling much better and completing antibiotic, Not requiring O2 during the day. Less coughing and no fever. Awaiting response from hematology regarding her anemia--IV iron infusion and which type. No further reported hematuria or vag bleeding. Pt would like Purewick external catheter--I have placed order for this and will have [facility] schedulingfax. She would like to see ENT for her ongoing ear issues, referral placed. Home telemedicine visit with provider scheduled next week. Pt will call [facility] in meantime with any questions or concerns. A total of 30 minutes was spent face to face via video-based telemedicine. Diagnosis and Associated Orders: ICD-10-CM 1. Hepatic cirrhosis, unspecified hepatic cirrhosis type, unspecified whether ascites present (HCC)K74.60 2. Other cerebral palsy (HCC) G80.8 3. Hypertensive heart disease with chronic diastolic congestive heart failure (HCC) I11.0 I50.32 4. Chronic hypoxemic respiratory failure (HCC) J96.11 5. Asthma in adult, moderate persistent, uncomplicated J45.40 6. Iron deficiency anemia due to chronic blood loss D50.0 7. Right acute serous otitis media, recurrence not specified H65.01 8. Dysfunction of both eustachian tubes H69.83 9. Urinary incontinence, unspecified type R32 Plan OTOLARYNGOLOGY REFERRAL OP Durable Medical Equipment : Other (See Comments) (purewick external catheter) HPI: Patient location: HOME. I was not in a hospital or clinic location. After connecting through [employer], patient was verified with two unique identifiers. Patient (or authorized legal sales solutions representative) was then informed that this was a Telemedicine visit and being conducted confidentially over secure lines. Methods to assure confidentiality were taken. Patient acknowledged consent and understanding of privacy and security of the Telemedicine visit. The patient agreed to participate. Telehealth visit type: Yes, Transitions of Care What accessories are you using? Stethoscope and Otoscope Was there a change to the patient's care plan? Yes, Specialty referral and Advice: Acute Medical Concerns Shaina Bustos is a 66 year old female seen in her home for a [employer] [facility] telemedicine providervisit. One week follow up--recent dx rhinovirus in ED 09/23 with hypoxia. Treated at home with prednisone taper and advised to wear oxygen continuously and use neb regularly. Follow up chest xray from 09/30 concerning for RLL pneumonia and started on levaquin. [facility] nurse visit 10/01 and nova removed (no indication), reported lung sounds improved, SpO2 improved on RA. Seen again by [facility] nurse 10/04 for follow up--continued cough but not as harsh. Taking levaqin and feeling better. SpO2 93% on RA. +cerebral palsy --has hospital bed and motorized scooter. Spouse provides assistance and has caregivers through the week. + chronic diastolic CHF, (last echo 07/01 with EF 55%), chronic resp failure with non-invasive home ventilator (per pulm d/t progressive neuromuscular disease), liver cirrhosis on lactulose. Recent ED visit with high ammonia levels--spouse was admittedly not giving med d/t causing her diarrhea. Educated on importance of use. Also with chronic anemia with hgb running in 7s, Saw hematology in the past --per hepatology to consider TIPS in future for persistent anemia. She is diabetic followed by [facility] today--feeling much better. Not using neb regularly. Room air today. Coughing occasionally and not as much. No fevers. Denies shortness of breath or wheezing. No chest tightness. She had some pain "r kidney area" yesterday but went away. Denies dysuria, no further hematuria or vaginal bleeding that they have seen (spouse cleans her). Appetite is ok, but not great. Caregiver is giving her lactulose, no BM in day or two. She is passing gas, no abd pain. Ears feel full, and crack. Using flonase, thinks she may have wax bilat. Also since nova was removed, she is wet often. Her spouse tries to keep her as dry as possible buthas difficulty rolling her by himself. Caregiver reports she is wet when she arrives to care for her in the am. Pt would like purwick catheter to help wick away urine. She is spends most of her time in her bed. Denies any open areas on skin presently. Component Latest Ref Rng & Units 09/23/2021 Iron 33 - 151 ug/dL 39 Iron Binding Capacity 250 - 425 ug/dL 288 Transferrin Saturation Percent 15 - 55 % 14 (L) Ferritin 13 - 150 ng/mL 33 Component Latest Ref Rng & Units 09/30/2021 10/04/2021 WBC 4.00 - 10.80 K/uL 6.47 5.01 RBC 3.85 - 5.15 M/uL 2.77 (L) 2.71 (L) HGB 12.0 - 15.3 g/dL 7.9 (L) 7.6 (L) HCT 36.0 - 45.2 % 27.6 (L) 26.1 (L) MCV 81.5 - 97.5 fL 99.6 (H) 96.3 MCH 27.0 - 34.0 pg 28.5 28.0 MCHC 32.0 - 36.0 g/dL 28.6 (L) 29.1 (L) RDW 11.5 - 15.5 % 19.9 (H) 19.9 (H) MPV 13.1 (H) Nucleated RBC <=0 /100 WBCs 0 Plt 140 - 400 K/uL 117 (L) 108 (L) Component Latest Ref Rng & Units 09/23/2021 BUN 6 - 20 mg/dL 12 Creatinine 0.5 - 1.0 mg/dL 0.8 Estimated Glomerular Filtration Rate >=60 mL/min 84 Sodium 135 - 146 mmol/L 143 Potassium 3.5 - 5.1 mmol/L 3.8 Chloride 98 - 107 mmol/L 106 CO2 22 - 32 mmol/L 27 Anion Gap 7 - 15 mmol/L 10 Glucose 70 - 120 mg/dL 118 Calcium 8.4 - 10.2 mg/dL 9.0 Component Latest Ref Rng & Units 09/23/2021 Albumin 3.8 - 5.0 g/dL 2.9 (L) AST 10 - 35 U/L 57 (H) Alkaline Phosphatase 35 - 130 U/L 134 (H) ALT 10 - 35 U/L 49 (H) Bilirubin, Total <=1.2 mg/dL 1.4 (H) Bilirubin, Direct 0.0 - 0.3 mg/dL 0.6 (H) Protein 6.0 - 8.3 g/dL 6.3 ROS: Review of Systems Constitutional: Positive for fatigue. Negative for activity change, appetite change, chills and fever. HENT: Negative for congestion. Reports impacted cerumen bilat-feels like there is fluid in her ears. Respiratory: Positive for cough. Negative for shortness of breath and wheezing. Cardiovascular: Negative for chest pain and leg swelling. Genitourinary: Negative for decreased urine volume, hematuria and vaginal bleeding. Skin: Negative for color change, rash and wound. Neurological: Negative for dizziness and light-headedness. Physical Exam (performed by equal opportunity assistant in the patient's home and limited to available telehealth tools): BP 108/64 (BP Site: Right Arm, BP Position: Supine) | Pulse 70 | Temp 36.7 C (98 F) | Resp 16 |SpO2 94% BP Readings from Last 4 Encounters: 10/06/21 108/64 10/04/21 108/68 10/01/21 102/60 10/01/21 110/60 Wt Readings from Last 4 Encounters: 09/23/21 113.4 kg (250 lb) 08/03/21 115.2 kg (254 lb) 07/22/21 115.2 kg (254 lb) 07/10/21 127 kg (280 lb) ] Physical Exam Constitutional: General: She is not in acute distress. Appearance: She is obese. She is not toxic-appearing. HENT: Head: Normocephalic. Left Ear: Tympanic membrane normal. Ears: Comments: Mild serous effusion R TM Cardiovascular: Rate and Rhythm: Normal rate and regular rhythm. Pulmonary: Effort: Pulmonary effort is normal. No respiratory distress. Breath sounds: Normal breath sounds. Skin: Coloration: Skin is pale. Neurological: Mental Status: She is alert. Mental status is at baseline. Psychiatric: Mood and Affect: Mood normal. Behavior: Behavior normal. Cognition and Memory: Memory is impaired. ZAK Lara [facility] 6:07 PM * Kaylee Barakat [facility] Health Chief Nuclear Medicine Technologist - 10/06/2021 1:24 PM EST Community Health Chief Nuclear Medicine Technologist Visit Date: 10/06/2021 Time: 1:24 PM Name: Shaina Bustos : 1955 Referral Source: Provider Source of Information: Patient and critical care educator Spoken language: Slovak Patient can read in Slovak: Yes. Circular Head Saw Operator needed: No. COVID-19 screening completed: Yes Vitals: Vital signs completed: Yes, vital signs within normal range. BP 108/64 (BP Site: Right Arm, BP Position: Supine) | Pulse 70 | Temp 36.7 C (98 F) | Resp 16 |SpO2 94% Condition Changes: Changes in health or social status since last visit: On going back pain uncontrolled urination. Can not feel urge until stream has started or she feels wet. Requesting a PUR wick The patient has new concerns since last visit: Yes, incontinence Medications: Medication review completed? No, . Does the patient have barriers to medication adherence? No. Patient reports difficulty paying for medications or might in the future: No. Telehealth: This is a telehealth visit: Yes. Type of telehealth visit: Return/Routine Visit conducted with: Physician/AP Symptoms Surveys and Evaluations: MAHC10 completed this visit: Yes. Score is 4 or more? Yes, notified Provider/Signal Apprentice Last flowsheet values for MAHC10: Age 65+: 1 (10/01/2021 10:00 AM) Diagnosis (3 or more co-existing): 1 (10/01/2021 10:00 AM) Prior history of falls within 3 months: 0 (10/01/2021 10:00 AM) Incontinence: 1 (10/01/2021 10:00 AM) Visual impairment: 1 (10/01/2021 10:00 AM) Impaired functional mobility: 1 (10/01/2021 10:00 AM) Environmental hazards: 1 (10/01/2021 10:00 AM) Poly Pharmacy (4 or more prescriptions - any type): 1 (10/01/2021 10:00 AM) Pain affecting level of function: 0 (10/01/2021 10:00 AM) Cognitive impairment: 0 (10/01/2021 10:00 AM) Score - a score of 4 or more is considered at risk for fallin (10/01/2021 10:00 AM) BSG 105-161 Plan: Reinforced care plan established by care team . Follow Up: Patient encouraged to call the intake phone number for all urgent but not emergent issues. Scheduled to follow up with patient as needed [facility] 10/06/2021 1:24 PM documented in this encounter Plan of Treatment Upcoming Encounters Date Type Specialty Care Team Description 10/13/2021 Telemedicine [facility] Joselin Dawson, ZAK [address] [place] [address] Kaylee Barakat [facility] Chief Nuclear Medicine Technologist [address] [place] [address] 10/18/2021 Laboratory Laboratory Processing [facility] Draw [address] [place] [address] 10/19/2021 Appointment Radiology 10/19/2021 Appointment Radiology 10/19/2021 Appointment Radiology 10/20/2021 Office Visit Family Medicine Vanita Dunn MD [address] [place] [address] 10/20/2021 Immunization/Injection Hematology Oncolog y Nurse, Med [address] [place] [address] 10/22/2021 Office Visit [facility] [address] 10/29/2021 Office Visit Cardiology [facility] [address] 11/01/2021 Laboratory Laboratory Processing [facility] Draw [address] [place] [address] 11/10/2021 Office Visit Pharmacy [facility] [address] [place] [address] 11/15/2021 Laboratory Laboratory Processing [facility] Draw [address] [place] [address] 11/29/2021 Laboratory Laboratory Processing [facility] Draw [address] [place] [address] 12/13/2021 Laboratory Laboratory Processing [facility] Draw [address] [place] [address] 12/22/2021 Office Visit Endocrinology Alberta Duque PA-C [address], [place] [id number] 12/23/2021 Office Visit Gastroenterology Lyssa Stout CRNP [address] [place] [address] 12/27/2021 Laboratory Laboratory Processing [facility] Draw [address] [place] [address] 01/04/2022 Office Visit Hematology Oncology Tono Sanchez MD [address] [place] [address] 01/10/2022 Laboratory Laboratory Processing [facility], [facility] Mobile Home Draw [address] [place] [address] 01/24/2022 Laboratory Laboratory Processing [facility] Mobile Home Draw [address] [place] [address] 02/07/2022 Laboratory Laboratory Processing [facility], [facility] Mobile Home Draw [address] [place] [address] 02/21/2022 Laboratory Laboratory Processing [facility] [address] [place] [address] 03/07/2022 Laboratory Laboratory Processing [facility] [address] [place] [address] 03/24/2022 Office Visit Pulmonary Reynaldo Marquez MD [address] [place] [address] 06/24/2022 Office Visit Sleep Disorders Love Francisco DO [address] [place] [address] Scheduled Procedures Name Priority Associated Diagnoses Date/Ti me ESOPHAGOGASTRODUODENOSCOPY ( EGD), FLEXIBLE, TRANSORAL, DIAGNOSTIC Recall Esophagitis COLONOSCOPY FLEXIBLE PROXIMAL DIAGNOSTIC Recall History of colonic polyps Scheduled Referrals Name Type Priority Associated Diagnoses Order Schedule OTOLARYNGOLOGY REFERRAL OP Referral Within 10 days (routine) Right acute serous otitis media, recurrence not specified Dysfunction of both eustachian tubes Ordered: 10/06/2021 Health Maintenance Due Date Last Done Comments [...] of this encounter Implants Implanted Type Area Operational Assistant Device Identifier Shelf Expiration Date Model / Serial / Lot Microtech Sure Clip Implanted:Qty: 2 on 06/03/2020 by Janis Hatch DO at OR [facility] Clip N/A: Colon 04/21/2022 [facility]-F-26-2 35-C-R / / [id number] documented as of this encounter Visit Diagnoses Diagnosis Hepatic cirrhosis, unspecified hepatic cirrhosis type, unspecified whether ascites present (HCC)- Primary Other cerebral palsy (HCC) Hypertensive heart disease with chronic diastolic congestive heart failure (HCC) Chronic hypoxemic respiratory failure (HCC) Chronic respiratory failure Asthma in adult, moderate persistent, uncomplicated 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 (chronic) Right acute serous otitis media, recurrence not specified Dysfunction of both eustachian tubes Dysfunction of Eustachian tube Urinary incontinence, unspecified type documented in this encounter Advance Directives Documents on File Type Date Recorded Patient Uat Tester 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 LIVING WILL AND HEALTH CARE POA Power [employer] 04/29/2021 12:00 AM TOM R Smart[employer]Pants Vitamins [facility] POA Advanced Directive [...] File Name Relationship Healthcare Agent [facility] Communication Syed Bustos Spouse Emergency Contact Care Teams Insulation Power Unit Tender Relationship Specialty Start Date End Date Vanita Dunn MD [address], [place] [id number] PCP - General Family Medicine 03/16/21 documented as of this encounter
--- OUTSIDE RECORDS SUMMARY | 2023-05-10 19:29 | External Medical Summary | Summary of Care ---
Author Name Unknown Organization [place] [address] Care Team Providers Care Hr Payroll Coordinator Name Role Phone Vanita Dunn MD Primary Care Provid er Reason for Visit * Reason Onset Date Comments Scheduling 10/08/2021 Encounter Details Date Type Department Care Team Description 10/08/2021 Telephone Hematology/Oncology [facility] [address] [place] [address] Tono Sanchez MD [address] [place] [address] Scheduling Allergies Active Allergy Reactions Severity Noted [...] 120 Vial 11 10/02/2019 Active nystatin (NYSTOP) 105870 UNIT/GM powder Apply topically to affected area [...] Informant: Pharmacy, Reported on 02/04/2021 Dexcom G6 Truck Body Builder Device Use as directed. To test [...] Strip 3 10/29/2020 Active OneTouch Delica Plus [id number] TESTING once daily 100 Each 3 10/29/2020 [...] pain 01/24/2012 01/17/2017 Genetic Sleep Disorder Research Other*[id number] 05/13/2011 04/07/2016 Obstructive sleep apnea 01/18/2011 12/27/19 [...] [facility] Joselin Dawson CRNP [address] [place] [address] Kaylee Barakat, Community Health Card Boxer [address] [place] [address] 10/15/2021 Hem/Onc Treatment Hematology Oncology [place], Chair 9 Hem Onc Scenery [address] [place] [facility] [address] 10/18/2021 Laboratory Laboratory Processing [facility] Draw [address] [place] [address] 10/19/2021 Appointment Radiology 10/19/2021 Appointment Radiology 10/19/2021 Appointment Radiology 10/20/2021 Office Visit Family Medicine Vanita Dunn MD [address] [place] [address] 10/22/2021 Office Visit Sleep Disorders [facility] Francisco [facility] [address] 10/29/2021 Office Visit Cardiology Quyen Canseco CRNP 132 [place] [address] 11/01/2021 Laboratory Laboratory Processing [facility] Draw [address] [place] [address] 11/10/2021 Office Visit [facility] [address] [place] [address] 11/15/2021 Laboratory Laboratory Processing [facility] Draw [address] [place] [address] 11/29/2021 Laboratory Laboratory Processing [facility] Draw [address] [place] [address] 12/13/2021 Laboratory Laboratory Processing [facility] Draw [address] [place] [address] 12/22/2021 Office Visit Endocrinology Alberta Duque PA-C [address] [place] [address] 12/23/2021 Office Visit Gastroenterology Lyssa Stout [facility] [address] 12/27/2021 Laboratory Laboratory Processing [facility] Draw [address] [place] [address] 01/04/2022 Office Visit Hematology Oncology Tono Sanchez MD [address] [place] [address] 01/10/2022 Laboratory Laboratory Processing [facility] Draw [address] [place] [address] 01/24/2022 Laboratory Laboratory Processing [facility] Draw [address] [place] [address] 02/07/2022 Laboratory Laboratory Processing [facility] [address] [place] [address] 02/21/2022 Laboratory Laboratory Processing [facility] [address] [place] [address] 03/07/2022 Laboratory Laboratory Processing [facility] Home Draw [address] [place] [address] 03/24/2022 Office Visit Pulmonary Reynaldo Marquez MD [address] [place] [address] 06/24/2022 Office Visit Sleep Disorders Love Francisco, DO 132 [facility] [place] [address] Scheduled Procedures Name Priority Associated Diagnoses Date/Ti [...] of this encounter Implants Implanted Type Area Glass Sagger Device Identifier Shelf Expiration Date Model / Serial / Lot Microtech Sure Clip Implanted:Qty: 2 on 06/03/2020 by Janis Hatch DO at OR [facility] Clip N/A: Colon 04/21/2022 [facility]-F-26-2 35-C-R / / [id number] documented as of this encounter Advance Directives Documents on File Type Date Recorded Patient Joint Setter 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 WILL AND HEALTH CARE POA Power of Informatics Developer 04/29/2021 12:00 AM TOM R OF S[employer]IOR [employer] DEVELOPER HEALTH CARE POA Advanced Directive 04/01/2021 1:14 [...] Bustos Spouse Emergency Contact Care Teams Hr Payroll Coordinator Relationship Specialty Start Date End Date Vanita Dunn MD [address], [place] [id number] PCP - General Family Medicine 03/16/21 documented as of this encounter
--- OUTSIDE RECORDS SUMMARY | 2023-05-10 19:29 | External Medical Summary | Summary of Care ---
Author Name Unknown Organization [facility] Address [place] [address] Care Team Providers Care Metals Sales Representative Name Role Phone Vanita Dunn MD Primary Care Provid er Reason for Visit * Reason Onset Date Comments [facility]: Maintenance 10/04/2021 Encounter Details Date Type Department Care Team Description 10/04/2021 Telephone [facility], [facility] [address] [facility] [place] [address] Joselin Dawson CRNP [address] [facility] [place] [address] [facility]: Maintenance Allergies Active Allergy Reactions Severity Noted Date Comments Adhesive Tape Itching 04/29/2020 Penicillins Rash 02/12/2008 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 120 Vial 11 10/02/2019 Active nystatin (NYSTOP) 823568 UNIT/GM powder Apply topically to affected area [...] of Breath, Informant: Pharmacy, Reported on 02/04/2021 DexBrainrack G6 Icebox Man Device Use as directed. To test [...] Strip 3 10/29/2020 Active OneTouch Delica Plus [id number] TESTING once daily 100 Each 3 10/29/2020 [...] 05/13/2021 Active Ibuprofen 800 MG Oral Tablet (Motrin)Indications [...] Tablet 0 10/02/2021 2 Active Disposable Brief X-LargeIndications: Hypertensive heart disease with chronic diastolic congestive heart failure (HCC),Hepatic cirrhosis, unspecified hepatic cirrhosis type, unspecified whether ascites present (HCC),Other cerebral palsy (HCC),Urinary incontinence, unspecified type,Frequent fecal incontinence Use as directed 60 Each 5 10/06/2021 Active Disposable Brief X-LargeIndications: Hypertensive heart disease with chronic diastolic congestive heart failure (HCC),Hepatic cirrhosis, unspecified hepatic cirrhosis type, unspecified whether ascites present (HCC),Other cerebral palsy (HCC) 60 Each 5 10/04/2021 2 Discontinu ed(Refill) documented as of this encounter (statuses as of 10/07/2021) Active Problems Problem Noted Date Food insecurity 09/20/2021 Overview: Per [facility] Protocol Chronic diastolic (congestive) heart [...] as of this encounter (statuses as of 10/07/2021) Resolved Problems Problem Noted Date Resolved Date [...] pain 01/24/2012 01/17/2017 Genetic Sleep Disorder Research Other*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 THAD Haas * Addendum Note - ZAK Lara - 10/06/2021 7:38 AM EST Addended by: JOSELIN DAWSON on: 10/06/2021 07:38 AM Modules accepted: Orders * Telephone Encounter - ZAK Lara - 10/06/2021 7:37 AM EST New order placed. * Telephone Encounter - Tamara Gutierrez LPN - 10/05/2021 5:19 PM EST [facility] they are needing a incontinence diagnosis listed on referral for insurance to cover Fax back to : [phone] * Telephone Encounter - THAD Haas - 10/05/2021 2:29 PM EST [facility] * Telephone Encounter - ZAK Lara - 10/04/2021 1:45 PM EST Request made for XL large briefs--pt using lactulose with frequent diarrhea. Order placed, please fax[facility] documented in this encounter Plan of Treatment Upcoming Encounters Date Type Specialty Care Team Description 10/13/2021 Telemedicine [facility] Joselin Dawson CRNP [address] [facility] [place] [address] Kaylee Barakat, Community Health Psychotherapist [address] [place] [address] 10/18/2021 Laboratory Laboratory Processing [facility], [facility] Mobile Home Draw [address] [place] [address] 10/19/2021 Appointment Radiology 10/19/2021 Appointment Radiology 10/19/2021 Appointment Radiology 10/20/2021 Office Visit Family Medicine Vanita Dunn MD [address] [place] [address] 10/20/2021 Immunization/Injection Hematology Oncolog y Nurse, Med 4 [address] [facility] [place] [address] 10/22/2021 Office Visit Sleep Disorders Love Francisco DO [address] [place] [address] 10/29/2021 Office Visit Cardiology Quyen Canseco CRNP [address] [place] [address] 11/01/2021 Laboratory [facility] Processing [facility] Mobile Home Draw [address] [place] [address] 11/10/2021 Office Visit Pharmacy [facility] [address] [place] [address] 11/15/2021 Laboratory Laboratory Processing [facility] Mobile Home Draw [address] [place] [address] 11/29/2021 Laboratory Laboratory Processing [facility] Mobile Home Draw [address] [place] [address] 12/13/2021 Laboratory Laboratory Processing [facility] Mobile Home Draw [address] [place] [address] 12/22/2021 Office Visit Endocrinology Alberta Duque PA-C [address] [place] [address] 12/23/2021 Office Visit Gastroenterology Lyssa Stout CRNP [address] [place] [address] 12/27/2021 Laboratory Laboratory Processing [facility] Mobile Home Draw [address] [place] [address] 01/04/2022 Office Visit Hematology Oncology Tono Sanchez MD [address] [place] [address] 01/10/2022 Laboratory Laboratory Processing [facility] Mobile Home Draw [address] [place] [address] 01/24/2022 Laboratory Laboratory Processing [facility] Mobile Home Draw [address] [place] [address] 02/07/2022 Laboratory Laboratory Processing [facility] Mobile Home Draw [address] [place] [address] 02/21/2022 Laboratory Laboratory Processing [facility] Mobile Home Draw [address] [place] [address] 03/07/2022 Laboratory Laboratory Processing [facility] Mobile Home Draw [address] [place] [address] 03/24/2022 Office Visit Pulmonary Reynaldo Marquez MD [address] [place] [address] 06/24/2022 Office Visit Sleep Disorders Love Francisco DO 132 [facility] [place] [address] Scheduled Procedures Name Priority Associated Diagnoses Date/Ti [...] of this encounter Implants Implanted Type Area Hot Packer Device Identifier Shelf Expiration Date Model / Serial / Lot Microtech Sure Clip Implanted:Qty: 2 on 06/03/2020 by Janis Hatch DO at OR [facility] Clip N/A: Colon 04/21/2022 [facility]-F-26-2 35-C-R / / [id number] documented as of this encounter Visit Diagnoses Diagnosis Hypertensive heart disease with chronic diastolic congestive heart failure (HCC)- Primary Hepatic cirrhosis, unspecified hepatic cirrhosis type, unspecified whether ascites present (HCC) Other cerebral palsy (HCC) Urinary incontinence, unspecified type Frequent fecal incontinence documented in this encounter Advance Directives Documents on File Type Date Recorded 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
--- OUTSIDE RECORDS SUMMARY | 2023-05-10 19:29 | External Medical Summary | Summary of Care ---
Author Name Unknown Organization [facility] Address [facility] [place] [address] Care Team Providers Care Radio Operator Name Role Phone Vanita Dunn MD Primary Care Provid er Reason for Visit * Reason Onset Date Comments Appointment 10/01/2021 Encounter Details Date Type Department Care Team Description 10/01/2021 Telephone [facility], [facility] [address] [facility] [place] [address] Joselin Dawson CRNP [facility] [address] Appointment Allergies Active Allergy Reactions Severity Noted [...] 120 Vial 11 10/02/2019 Active nystatin (NYSTOP) 106023 UNIT/GM powder Apply topically to affected area [...] Informant: Pharmacy, Reported on 02/04/2021 Dexcom G6 Braille And Talking Books Clerk Device Use as directed. To test [...] Strip 3 10/29/2020 Active OneTouch Delica Plus [id number] TESTING once daily 100 Each 3 10/29/2020 [...] 10 days 3 Each 3 09/27/2021 Active documented as of this encounter (statuses [...] pain 01/24/2012 01/17/2017 Genetic Sleep Disorder Research Other*[id number] 05/13/2011 04/07/2016 Obstructive sleep apnea 01/18/2011 12/27/19 [...] Telephone Encounter - Lilian Jara CMA - 10/07/2021 1:30 PM EST Called and spoke with Shaina and caregiver; scheduled for 2hour Venofer on 10/15 at 1130am due to transportation * Telephone Encounter - Cassie Barboza RN - 10/07/2021 12:25 PM EST Reviewed with Dr Sanchez- we can try giving patient IV venofer every 3 weeks to see if this would help. Called patient who states that she is agreeable to this. [place] plan built and routed for signature- auth not required for venofer. Patient has home phlebotomy every 2 weeks for CBCd. Message sent to home phlebotomy pool to draw ferritin, iron screen every 6 weeks when there for CBCd. Scheduling: please call patient to schedule 2 hour appt on 503 schedule "venofer" (Daniel). Port flush appt can be cancelled 10/20. Thanks! Galdino WILLIAM * Telephone Encounter - Joselin Dawson TIRE SERVICE SUPERVISOR - 10/01/2021 12:[address] Sanchez- Pt seen by you in past for iron def anemia and pancytopenia d/t liver cirrhosis and splenomegaly. Pt had both venofer and monoferric in the past. GI recommended monitoring counts every 2 weeks. Please review recent results--would appreciate yourrecommendation. (I had placed an anemia clinic referral but they deferred mgmt to hematology) Of note, there was some question regarding vaginal bleeding--unable to pelvic u/s yesterday and wasrescheduled for 10/19. Hepatology to follow up once workup complete. Thank you in advance for your time, Joselin Component Latest Ref Rng & Units 09/23/2021 Iron 33 - 151 ug/dL 39 Iron Binding Capacity 250 - 425 ug/dL 288 Transferrin Saturation Percent 15 - 55 % 14 (L) Ferritin 13 - 150 ng/mL 33 Component Latest Ref Rng & Units 06/06/2021 06/16/2021 09/14/2021 09/20/2021 WBC 4.00 - 10.80 K/uL 2.96 (L) 2.87 (L) 3.17 (L) 3.72 (L) RBC 3.85 - 5.15 M/uL 2.86 (L) 2.95 (L) 2.65 (L) 2.66 (L) HGB 12.0 - 15.3 g/dL 8.6 (L) 9.0 (L) 7.7 (L) 7.6 (L) HCT 36.0 - 45.2 % 29.0 (L) 29.4 (L) 27.7 (L) 26.9 (L) MCV 81.5 - 97.5 fL 101.4 (H) 99.7 (H) 104.5 (H) 101.1 (H) MCH 27.0 - 34.0 pg 30.1 30.5 29.1 28.6 MCHC 32.0 - 36.0 g/dL 29.7 (L) 30.6 (L) 27.8 (L) 28.3 (L) RDW 11.5 - 15.5 % 18.6 (H) 18.7 (H) 20.4 (H) 20.2 (H) MPV 6.6 - 11.1 fL 12.5 (H) 12.8 (H) Nucleated RBC <=0 /100 WBCs 0 0 0 1 (H) Plt 140 - 400 K/uL 71 (L) 84 (L) 99 (L) 90 (L) Component Latest Ref Rng & Units 09/23/2021 09/30/2021 WBC 4.00 - 10.80 K/uL 4.70 6.47 RBC 3.85 - 5.15 M/uL 2.60 (L) 2.77 (L) HGB 12.0 - 15.3 g/dL 7.3 (L) 7.9 (L) HCT 36.0 - 45.2 % 25.7 (L) 27.6 (L) MCV 81.5 - 97.5 fL 98.8 (H) 99.6 (H) MCH 27.0 - 34.0 pg 28.1 28.5 MCHC 32.0 - 36.0 g/dL 28.4 (L) 28.6 (L) RDW 11.5 - 15.5 % 20.3 (H) 19.9 (H) MPV 6.6 - 11.1 fL 13.2 (H) 13.1 (H) Nucleated RBC <=0 /100 WBCs 0 0 Plt 140 - 400 K/uL 100 (L) 117 (L) documented in this encounter Plan of Treatment Upcoming Encounters Date Type Specialty Care Team Description 10/13/2021 [facility]medicine [facility] [address] [facility] [address] Kaylee Barakat, Community Health Crushing Foreman [address] [facility], [place] [address] 10/15/2021 Hem/Onc Treatment Hematology Oncology Park, Chair 9 Hem Onc Scenery [address] [place] [address] 10/18/2021 Laboratory Laboratory Processing [facility] Mobile Home Draw [address] [place] [address] 10/19/2021 Appointment Radiology 10/19/2021 Appointment Radiology 10/19/2021 Appointment Radiology 10/20/2021 Office Visit Family Medicine Vanita Dunn MD [address] [place] [address] 10/22/2021 Office Visit Sleep Disorders Love Francisco DO [address] [place] [address] 10/29/2021 Office Visit Cardiology Quyen Canseco CRNP [address] [place] [address] 11/01/2021 Laboratory Laboratory Processing [facility] Mobile Home Draw [address] [place] [address] 11/10/2021 [facility]acy [facility] [address] [place] [address] 11/15/2021 Laboratory Laboratory Processing [facility] Mobile Home Draw [address] [place] [address] 11/29/2021 Laboratory Laboratory Processing [facility] Mobile Home Draw [address] [place] [address] 12/13/2021 Laboratory Laboratory Processing [facility] Mobile Home Draw [address] [place] [address] 12/22/2021 Office Visit Endocrinology Alberta Duque PA-C [address] [place] [address] 12/23/2021 Office Visit Gastroenterology Lyssa Stout CRNP [address] [place] [address] 12/27/2021 Laboratory Laboratory Processing [facility] Mobile Home Draw [address] [place] [address] 01/04/2022 Office Visit Hematology Oncology Tono Sanchez MD [address] [place] [address] 01/10/2022 Laboratory Laboratory Processing [facility] Mobile Home Draw [address] [place] [address] 01/24/2022 Laboratory Laboratory Processing [facility] Mobile Home Draw [address] [place] [address] 02/07/2022 Laboratory Laboratory Processing [facility], [facility] Mobile Home Draw [address] [place] [address] 02/21/2022 Laboratory Laboratory Processing [facility], [facility] Mobile Home Draw [address] [place] [address] 03/07/2022 Laboratory Laboratory Processing [facility], [facility] Mobile Home Draw [address] [place] [address] 03/24/2022 Office Visit Pulmonary Reynaldo Marquez MD [address] [place] [address] 06/24/2022 Office Visit Sleep Disorders Love Francisco DO [address] [place] [address] Scheduled Procedures Name Priority Associated Diagnoses Date/Ti [...] this encounter Implants Implanted Type Area Frame Changer Device Identifier Shelf Expiration Date Model / Serial / Lot Microtech Sure Clip Implanted:Qty: 2 on 06/03/2020 by Janis Hatch DO at OR [facility] Clip N/A: Colon 04/21/2022 [facility]-F-26-2 35-C-R / / [id number] documented as of this encounter Advance Directives Documents on File Type Date Recorded 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
--- OUTSIDE RECORDS SUMMARY | 2023-05-10 19:29 | External Medical Summary | Summary of Care ---
Author Name Unknown Organization [place] [address] Care Team Providers Care Agriculture Science Teacher Name Role Phone Vanita Dunn MD Primary Care Provid er Reason for Visit * Reason Onset Date Comments [facility]: Maintenance 10/07/2021 Encounter Details Date Type Department Care Team Description 10/07/2021 Telephone [facility] [place], [facility] [address] [place] [address] [facility], Nurse [facility] [address] [place] [address] [facility]: Maintenance Allergies Active Allergy [...] 120 Vial 11 10/02/2019 Active nystatin (NYSTOP) 735286 UNIT/GM powder Apply topically to affected area [...] of Breath, Informant: Pharmacy, Reported on 02/04/2021 [employer]Ar[employer] G6 Motor Runner Device Use as directed. To test blood [...] Strip 3 10/29/2020 Active OneTouch Delica Plus Ihldak90X TESTING once daily 100 Each 3 10/29/2020 [...] pain 01/24/2012 01/17/2017 Genetic Sleep Disorder Research Other*[id number] 05/13/2011 04/07/2016 Obstructive sleep apnea 01/18/2011 12/27/19 [...] No Preserve, 6 Mons & Above, IM 06/01/2020,06/05/2019,05/16/2018,1006/05/2020 Seasonal Influenza, Quadriva lent, No Preserve, IM [...] Miscellaneous Notes * Telephone Encounter - Michaelle Mccormick RN - 10/07/2021 2:41 PM EST [facility] just [facility] for Perwick catheters, will require chart notes and form completed by Joselin CRESPO, fax number provided Chart notes faxed to [facility] Joselin Dawson tele-med notes from yesterday Michaelle Mccormick RN BSN [facility] manager cancer documented in this encounter Plan of Treatment Upcoming Encounters Date Type Specialty Care Team Description 10/13/2021 Telemedicine [facility] Joselin Dawson CRNP [address] [place] [address] Kaylee Barakat, Community Health Director Of Agriculture [address] [place] [address] 10/15/2021 Hem/Onc Treatment Hematology Oncology Park, Chair [address] Hem Onc Scenery [address] [place] [address] 10/18/2021 Laboratory Laboratory Processing [facility] Mobile Home Draw [address] [place] [address] 10/19/2021 Appointment Radiology 10/19/2021 Appointment Radiology 10/19/2021 Appointment Radiology 10/20/2021 Office Visit Family Medicine Vanita Dunn MD [address] [place] [address] 10/22/2021 Office Visit Sleep Disorders Love Francisco DO [address] [place] [address] 10/29/2021 Office Visit Cardiology Quyen Canseco CRNP [address] [place] [address] 11/01/2021 Laboratory Laboratory Processing [facility] Mobile Home Draw [address] [place] [address] 11/10/2021 Office Visit Pharmacy [facility] [address] [place] [address] 11/15/2021 Laboratory Laboratory Processing [facility] Mobile Home Draw [address] [place] [address] 11/29/2021 Laboratory Laboratory Processing [facility] Mobile Home Draw [address] [place] [address] 12/13/2021 Laboratory Laboratory Processing [facility] Mobile Home Draw [address] [place] [address] 12/22/2021 Office Visit Endocrinology Alberta Duque PA-C [address] [place] [address] 12/23/2021 Office Visit Gastroenterology Lyssa Stout CRNP [address] [place] [address] 12/27/2021 Laboratory Laboratory Processing [facility] Mobile Home Draw [address] [place] [address] 01/04/2022 Office Visit Hematology Oncology Tono Sanchez MD [address] [place] [id number] 01/10/2022 Laboratory Laboratory Processing [facility] Mobile Home Draw [address] [place] [address] 01/24/2022 Laboratory Laboratory Processing [facility] Mobile Home Draw [address] [place] [address] 02/07/2022 Laboratory Laboratory Processing [facility] Mobile Home Draw [address] [place] [address] 02/21/2022 Laboratory Laboratory Processing [facility] Mobile Home Draw [address] [place] [address] 03/07/2022 Laboratory Laboratory Processing [facility] Mobile Home Draw [address] [facility] [place] [address] 03/24/2022 Office Visit Pulmonary Reynaldo Marquez MD [address] [place] [address] 06/24/2022 Office Visit Sleep Disorders Love Francisco, DO [address] [place] [address] Scheduled Procedures Name Priority Associated Diagnoses Date/Ti [...] of this encounter Implants Implanted Type Area Vocational Rehabilitation Administrator Device Identifier Shelf Expiration Date Model / Serial / Lot Microtech Sure Clip Implanted:Qty: 2 on 06/03/2020 by Janis Hatch DO at OR [facility] Clip N/A: Colon 04/21/2022 [facility]-F-26-2 35-C-R / / [id number] documented as of this encounter Advance Directives Documents on File Type Date Recorded Patient [place] 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 LIVING WILL AND HEALTH CARE POA Power BetterificData Processing Manager 04/29/2021 12:00 AM TOM R [facility] POA Advanced Directive 04/01/2021 1:14 PM [...] Syed Bustos Spouse Emergency Contact Care Teams Agriculture Science Teacher Relationship Specialty Start Date End Date Vanita Dunn MD [address] [facility], [place] [address] PCP - General Family Medicine 03/16/21 documented as of this encounter
--- OUTSIDE RECORDS SUMMARY | 2023-05-10 19:30 | External Medical Summary | Summary of Care ---
Author Name Unknown Organization [facility] Address [place] [address] Care Team Providers Care Vice President Of Engineering Name Role Phone Vanita Dunn MD Primary Care Provid er Reason for Visit * Reason Onset Date Comments [facility]: Maintenance 10/04/2021 Encounter Details Date Type Department Care Team Description 10/04/2021 Telephone [facility], [facility] [address] [facility] [place] [address] Joselin Dawson CRNP [address] [facility] [place] [address] [facility]: Maintenance Allergies Active Allergy [...] 120 Vial 11 10/02/2019 Active nystatin (NYSTOP) 236010 UNIT/GM powder Apply topically to affected area [...] of Breath, Informant: Pharmacy, Reported on 02/04/2021 [employer] G6 Health Aid Device Use as directed. To test blood [...] Strip 3 10/29/2020 Active OneTouch Delica Plus Owlfeh30W TESTING once daily 100 Each 3 10/29/2020 [...] Noted Date Food insecurity 09/20/2021 Overview: Per [facility] Protocol Chronic diastolic (congestive) heart [...] pain 01/24/2012 01/17/2017 Genetic Sleep Disorder Research Other*[id number] 05/13/2011 04/07/2016 Obstructive sleep apnea 01/18/2011 12/27/19 [...] PM EST Received call from Erica at [facility] they are needing a incontinence diagnosis listed on referral for insurance to cover Fax back to : [phone] * Telephone Encounter - THAD Haas - 10/05/2021 2:29 PM EST Order faxed to [facility] THAD Haas * Telephone Encounter - ZAK Lara - 10/04/2021 1:45 PM EST Request made for XL large briefs--pt using lactulose with frequent diarrhea. Order placed, please fax--?[facility]? documented in this encounter Plan of Treatment Upcoming Encounters Date Type Specialty Care Team Description 10/06/2021 Telemedicine [facility] Joselin Dawson CRNP [address] [place] [address] Kaylee Barakat, Community Health Taping Supervisor [address] [place] [address] 10/13/2021 Telemedicine [facility] Joselin Dawson CRNP [address] [place] [address] Kaylee Barakat, Community Health Taping Supervisor [address] [place] [address] 10/18/2021 Laboratory Laboratory Processing [facility] [address] [place] [address] 10/19/2021 Appointment Radiology 10/19/2021 Appointment Radiology 10/19/2021 Appointment Radiology 10/20/2021 Office Visit Family Medicine Vanita Dunn MD [address] [place] [address] 10/20/2021 Immunization/Injection Hematology Oncolog y Nurse, Med [address] [place] [address] 10/22/2021 Office Visit Sleep Disorders Love Francisco DO [address] [place] [address] 10/29/2021 Office Visit Cardiology Quyen Canseco CRNP [address] [place] [address] 11/01/2021 Laboratory Laboratory Processing [facility] [address] [place] [address] 11/10/2021 Office Visit Pharmacy [facility] [address] [place] [address] 11/15/2021 Laboratory Laboratory Processing [facility] [address] [place] [address] 11/29/2021 Laboratory Laboratory Processing [facility] [address] [place] [address] 12/13/2021 Laboratory Laboratory Processing [facility] [address] [place] [address] 12/22/2021 Office Visit Endocrinology Alberta Duque PA-C [address] [place] [address] 12/23/2021 Office Visit Gastroenterology Lyssa Stout CRNP [address] [place] [address] 12/27/2021 Laboratory Laboratory Processing [facility] [address] [place] [address] 01/04/2022 Office Visit Hematology Oncology Tono Sanchez MD [address] [place] [address] 01/10/2022 Laboratory Laboratory Processing [facility] [address] [place] [address] 01/24/2022 Laboratory Laboratory Processing [facility] [address] [place] [address] 02/07/2022 Laboratory Laboratory Processing [facility] [address] [place] [address] 02/21/2022 Laboratory Laboratory Processing [facility] [address] [place] [address] 03/07/2022 Laboratory Laboratory Processing [facility] [address] [place] [address] 03/24/2022 Office Visit Pulmonary Reynaldo Marquez MD [address] [facility] [place] [address] 06/24/2022 Office Visit Sleep Disorders Love Francisco, DO [address] [place] [address] Scheduled Procedures Name Priority Associated Diagnoses Date/Ti [...] of this encounter Implants Implanted Type Area Layout Designer Device Identifier Shelf Expiration Date Model / Serial / Lot Microtech Sure Clip Implanted:Qty: 2 on 06/03/2020 by Janis Hatch DO at OR [facility] Clip N/A: Colon 04/21/2022 [facility]-F-26-2 35-C-R / / [id number] documented as of this encounter Visit Diagnoses Diagnosis Hypertensive heart disease with chronic diastolic congestive heart failure (HCC)- Primary Hepatic cirrhosis, unspecified hepatic cirrhosis type, unspecified whether ascites present (HCC) Other cerebral palsy (HCC) Urinary incontinence, unspecified type Frequent fecal incontinence documented in this encounter Advance Directives Documents on File Type Date Recorded Patient Chemical Instrumentation Officer 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 LIVING WILL AND HEALTH CARE POA [employer] 04/29/2021 12:00 AM TOM R [facility] POA Advanced Directive 04/01/2021 1:14 PM [...] Spouse Emergency Contact Care Teams Vice President Of Engineering Relationship Specialty Start Date End Date Vanita Dunn MD [address] [facility] [place] [place] [place] [address] PCP - General Family Medicine 03/16/21 documented as of this encounter
--- OUTSIDE RECORDS SUMMARY | 2023-05-10 19:31 | External Medical Summary | Summary of Care ---
Author Name Unknown Organization [facility] Address [place] [address] Care Team Providers Care Graduate Intern Name Role Phone Vanita Dunn MD Primary Care Provid er Reason for Visit * Reason Onset Date Comments [facility]: Maintenance 10/04/2021 Encounter Details Date Type Department Care Team Description 10/04/2021 Telephone [facility], [facility] 132 [facility] [place] [address] Joselin Dawson CRNP 132 [facility] [place] [address] [facility]: Maintenance Allergies Active Allergy Reactions Severity Noted Date Comments Adhesive Tape Itching 04/29/2020 Penicillins Rash 02/12/2008 Perflutren Protein A Microsph 2019 Definity-lower back pain documented as of this encounter (statuses as of 10/05/2021) Medications Medication Sig Dispensed Refills Start Date End Date Status albuterol sulfate (PROVENTIL) (2.5 MG/3ML) 0.083% nebulizer solutionIndications: Pulmonary vascular congestion Inhale 1 Vial via nebulizer every 6 hours as needed for Wheezing. 120 Vial 11 10/02/2019 Active nystatin (NYSTOP) 269712 UNIT/GM powder Apply topically to affected area [...] of Breath, Informant: Pharmacy, Reported on 02/04/2021 [employer] G6 Mining Manager Device Use as directed. To test [...] Strip 3 10/29/2020 Active OneTouch Delica Plus Erlajx28F TESTING once daily 100 Each 3 10/29/2020 [...] cerebral palsy (HCC) 60 Each 5 10/04/2021 Active documented as of this encounter (statuses as of 10/05/2021) Active Problems Problem Noted Date Food insecurity [...] as of this encounter (statuses as of 10/05/2021) Resolved Problems Problem Noted Date Resolved Date [...] pain 01/24/2012 01/17/2017 Genetic Sleep Disorder Research Other*[id number] 05/13/2011 04/07/2016 Obstructive sleep apnea 01/18/2011 12/27/19 [...] as of this encounter (statuses as of 10/05/2021) Immunizations Name Administration Dates Next Due COVID-19 [...] PM EST Received call from Erica at [facility] they are needing a incontinence diagnosis listed on referral for insurance to cover Fax back to : [phone] * Telephone Encounter - THAD Haas - 10/05/2021 2:29 PM EST Order faxed to [facility] THAD Haas * Telephone Encounter - ZAK Lara - 10/04/2021 1:45 PM EST Request made for XL large briefs--pt using lactulose with frequent diarrhea. Order placed, please fax--[facility]? documented in this encounter Plan of Treatment Upcoming Encounters Date Type Specialty Care Team Description 10/06/2021 [facility]medicine [facility] [address] [facility] [address] Kaylee Barakat, Community Health Completion Engineer [address] [place] [address] 10/13/2021 Telemedicine [facility] [address] Kaylee Barakat, Community Health Completion Engineer [address] [place] [address] 10/18/2021 Laboratory Laboratory Processing [facility] Home Draw [address] [place] [address] 10/19/2021 Appointment Radiology 10/19/2021 Appointment Radiology 10/19/2021 Appointment Radiology 10/20/2021 Office Visit Family Medicine Vanita Dunn MD [address] [place] [address] 10/20/2021 Immunization/Injection Hematology Oncolog y Nurse, Med 4 [address] [facility] [place] [address] 10/22/2021 Office Visit Sleep Disorders Love Francisco DO [address] [place] [address] 10/29/2021 Office Visit Cardiology Quyen Canseco CRNP [address] [place] [address] 11/01/2021 Laboratory Laboratory Processing [facility] [address] [place] [address] 11/10/2021 Office Visit [address] [address] 11/15/2021 Laboratory Laboratory Processing [facility] [address] [place] [address] 11/29/2021 Laboratory Laboratory Processing [facility] [address] [place] [address] 12/13/2021 Laboratory Laboratory Processing [facility] Draw [address] [place] [address] 12/22/2021 Office Visit Endocrinology Alberta Duque PA-C [address] [place] [address] 12/23/2021 Office Visit Gastroenterology Lyssa Stout CRNP [address] [place] [address] 12/27/2021 Laboratory Laboratory Processing [facility] [address] [place] [address] 01/04/2022 Office Visit Hematology Oncology Tono Sanchez MD [address] [place] [address], [place] [address] 01/10/2022 Laboratory Laboratory Processing [facility] [address] [place] [address] 01/24/2022 Laboratory Laboratory Processing [facility] [address] [place] [address] 02/07/2022 Laboratory Laboratory Processing [facility] Draw [address] [place] [address] 02/21/2022 Laboratory Laboratory Processing [facility] [address] [place] [address] 03/07/2022 Laboratory Laboratory Processing [facility] [address] [place] [address] 03/24/2022 Office Visit Pulmonary Reynaldo Marquez MD [address] [place], [place] [address] 06/24/2022 Office Visit Sleep Disorders Love Francisco, DO [address] [place] [address] Scheduled Procedures Name Priority Associated Diagnoses Date/Ti [...] of this encounter Implants Implanted Type Area Ram Car Operator Device Identifier Shelf Expiration Date Model / Serial / Lot Microtech Sure Clip Implanted:Qty: 2 on 06/03/2020 by Janis Hatch DO at OR [facility] Clip N/A: Colon 04/21/2022 [facility]-F-26-2 35-C-R / / [id number] documented as of this encounter Visit Diagnoses Diagnosis Hypertensive heart disease with chronic diastolic congestive heart failure (HCC)- Primary Hepatic cirrhosis, unspecified hepatic cirrhosis type, unspecified whether ascites present (HCC) Other cerebral palsy (HCC) documented in this encounter Advance Directives Documents on File Type Date Recorded Patient Meat Packer 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 WILL AND HEALTH CARE POA Power of Sea Shell Gatherer 04/29/2021 12:00 AM [facility] Advanced Directive 04/01/2021 1:14 [...] Healthcare Agent [facility] Communication Syed Bustos Spouse Emergency Contact Care Teams Graduate Intern Relationship Specialty Start Date End Date Vanita Dunn MD [address] [place] [address] PCP - General Family Medicine 03/16/21 documented as of this encounter
--- OUTSIDE RECORDS SUMMARY | 2023-05-10 19:31 | External Medical Summary | Summary of Care ---
Author Name Unknown Organization [facility] Address [place] [address] Care Team Providers Care Assembly Stock Supervisor Name Role Phone Vanita Dunn MD Primary Care Provid er Reason for Visit * Reason Onset Date Comments [facility]: Maintenance 10/04/2021 Encounter Details Date Type Department Care Team Description 10/04/2021 Telephone [facility], [facility] 132 [facility] [place] [address] Joselin Dawson CRNP 132 [facility] [place] [address] [facility]: Maintenance Allergies Active Allergy [...] 120 Vial 11 10/02/2019 Active nystatin (NYSTOP) 098332 UNIT/GM powder Apply topically to affected area [...] of Breath, Informant: Pharmacy, Reported on 02/04/2021 [employer] G6 Labor Standards Director Device Use as directed. To test [...] Strip 3 10/29/2020 Active OneTouch Delica Plus Jxeflb30Z TESTING once daily 100 Each 3 10/29/2020 [...] pain 01/24/2012 01/17/2017 Genetic Sleep Disorder Research Other*[id number] 05/13/2011 04/07/2016 Obstructive sleep apnea 01/18/2011 12/27/19 [...] 10/05/2021 2:29 PM EST Order faxed to [employer] [employer] THAD Haas * Telephone Encounter - ZAK Lara - 10/04/2021 1:45 PM EST Request made for XL large briefs--pt using lactulose with frequent diarrhea. Order placed, please fax--?[facility]? documented in this encounter Plan of Treatment Upcoming Encounters Date Type Specialty Care Team Description 10/06/2021 Telemedicine [facility] Joselin Dawson CRNP [address] [place] [address] Kaylee Barakat, Community Health Sleeping Car Service Attendant [facility] [place] [address] 10/13/2021 Telemedicine [facility] Joselin Dawson CRNP [address] [place] [address] Kaylee Barakat, [facility] Sleeping Car Service Attendant [facility] [place] [address] 10/18/2021 Laboratory Laboratory Processing [facility] Draw [address] [place] [address] 10/19/2021 Appointment Radiology 10/19/2021 Appointment Radiology 10/19/2021 Appointment Radiology 10/20/2021 Office Visit Family Medicine MonaVanita MD [address] [place] [address] 10/20/2021 Immunization/Injection Hematology Oncolog y Nurse, Med [address] [place] [address] 10/22/2021 Office Visit Sleep Disorders Love Francisco DO [address] [place] [address] 10/29/2021 Office Visit Cardiology Quyen [facility]seco CRNP [facility] [address] 11/01/2021 Laboratory Laboratory Processing [facility] Mobile Home Draw [facility] [place] [address] 11/10/2021 Office Visit [facility] [address] [place] [address] 11/15/2021 Laboratory Laboratory Processing [facility] [address] [place] [address] 11/29/2021 Laboratory Laboratory Processing [facility] Draw [address] [place] [address] 12/13/2021 Laboratory Laboratory Processing [facility] Draw [address] [place] [address] 12/22/2021 Office Visit Endocrinology Alberta Duque PA-C [address] [place] [address] 12/23/2021 Office Visit Gastroenterology Lyssa Stout CRNP [address] [place] [address] 12/27/2021 Laboratory Laboratory Processing [facility] [address] [place] [address] 01/04/2022 Office Visit Hematology Oncology Tono Sanchez MD [address] [place] [address] 01/10/2022 Laboratory Laboratory Processing [facility] Draw [address] [place] [address] 01/24/2022 Laboratory Laboratory Processing [facility] Draw [address] [place] [address] 02/07/2022 Laboratory Laboratory Processing [facility] Draw [address] [place] [address] 02/21/2022 Laboratory Laboratory Processing [facility] Draw [address] [place] [address] 03/07/2022 Laboratory Laboratory Processing [facility] Draw [address] [place] [address] 03/24/2022 Office Visit Pulmonary Reynaldo Marquez MD [address] [place] [id number] 06/24/2022 Office Visit Sleep Disorders Love Francisco, DO 132 [facility] [place] [address] Scheduled Procedures Name Priority Associated Diagnoses [...] of this encounter Implants Implanted Type Area Ink Technician Device Identifier Shelf Expiration Date Model / Serial / Lot [employer] Sure Clip Implanted:Qty: 2 on 06/03/2020 by Janis Hatch DO at OR [facility] Clip N/A: Colon 04/21/2022 [facility]-F-26-2 35-C-R / / [id number] documented as of this encounter Visit Diagnoses Diagnosis Hypertensive heart disease with chronic diastolic congestive heart failure (HCC)- Primary Hepatic cirrhosis, unspecified hepatic cirrhosis type, unspecified whether ascites present (HCC) Other cerebral palsy (HCC) documented in this encounter Advance Directives Documents on File Type Date Recorded Patient Pressing Machine Tender Expl 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 WILL AND HEALTH CARE POA Power of Cnc Operator Machinist 04/29/2021 12:00 AM TOM R OF PRODUCTION ASSEMBLER HEALTH CARE POA Advanced Directive 04/01/2021 [...] Bustos Spouse Emergency Contact Care Teams Assembly Stock Supervisor Relationship Specialty Start Date End Date Vanita Dunn MD [address] [place] [address] PCP - General Family Medicine 03/16/21 documented as of this encounter
--- OUTSIDE RECORDS SUMMARY | 2023-05-10 19:32 | External Medical Summary | Summary of Care ---
Author Name Unknown Organization [facility] [place] [address] Care Team Providers Care Embedded Linux Engineer Name Role Phone Vanita Dunn MD Primary Care Provid er Reason for Visit * Reason Onset Date Comments [facility]: Maintenance 10/03/2021 Encounter Details Date Type Department Care Team Description 10/03/2021 Scheduled Telephone [facility], [facility] [address] [facility] [place] [address] [facility], Nurse [facility] [address] [facility] [place] [address] Allergies Active Allergy Reactions Severity Noted Date Comments Adhesive Tape Itching 04/29/2020 Penicillins Rash 02/12/2008 Perflutren Protein A Microsph 2019 Definity-lower back pain documented as of this encounter (statuses as of 10/03/2021) Medications Medication Sig Dispensed Refills Start Date End Date Status albuterol sulfate (PROVENTIL) (2.5 MG/3ML) 0.083% nebulizer solutionIndications: Pulmonary vascular congestion Inhale 1 Vial via nebulizer every 6 hours as needed for Wheezing. 120 Vial 11 10/02/2019 Active nystatin (NYSTOP) 624958 UNIT/GM powder Apply topically to affected area [...] of Breath, Informant: Pharmacy, Reported on 02/04/2021 DexTapEngage G6 Conservation Planner Device Use as directed. To test [...] Strip 3 10/29/2020 Active OneTouch Delica Plus [id number] TESTING once daily 100 Each 3 10/29/2020 [...] days. until gone. 5 Tablet 0 10/02/2021 Active documented as of this encounter (statuses as of 10/03/2021) Active Problems Problem Noted Date Food insecurity [...] as of this encounter (statuses as of 10/03/2021) Resolved Problems Problem Noted Date Resolved Date [...] pain 01/24/2012 01/17/2017 Genetic Sleep Disorder Research Other*[id number] 05/13/2011 04/07/2016 Obstructive sleep apnea 01/18/2011 12/27/19 [...] as of this encounter (statuses as of 10/03/2021) Immunizations Name Administration Dates Next Due COVID-19 [...] Telephone Encounter - Alyce Tyler RN - 10/03/2021 2:40 PM EST Call placed to pt to follow up with catheter removal Monday and pneumonia diagnosis. ZAK Ramachandran had called the pt yesterday and reported that CXR was concerning for RLL pneumonia. Pt was ordered a course of Levaquin. Pt's spouse answered the phone but was unable to understand what was being said due to "phone breaking up". I could hear spouse clearly. Call was placed to [facility] to confirm that the antibiotic was picked up. I was told that the prescription was picked up. Pt is scheduled for [facility] tomorrow. documented in this encounter Plan of Treatment Upcoming Encounters Date Type Specialty Care Team Description 10/04/2021 Laboratory Laboratory [place] [facility] Mobile Home Draw [address] [place] [address] 10/04/2021 Home Visit [facility] July Poe RN 132 [facility] [place] [address] 10/06/2021 Telemedicine [facility] Joselin Dawson CRNP 132 [facility] [place] [address] Kaylee Barakat, Community Health Archivist [employer] [address] [place] [address] 10/13/2021 Telemedicine [facility]elin [facility] CR[facility] [place] [address] Kaylee Barakat, [facility] Archivist [employer] [address] [place] [address] 10/18/2021 Laboratory Laboratory [place] [facility] [facility] Mobile Home Draw [address] [place] [address] 10/19/2021 Appointment Radiology 10/19/2021 Appointment Radiology 10/19/2021 Appointment Radiology 10/20/2021 Office Visit Family Medicine Vanita Dunn MD [address] [place] [address] 10/20/2021 Immunization/Injection Hematology Oncolog y Nurse, Med 4 [facility] [place] [address] 10/22/2021 Office Visit Sleep Disorders Love Francisco DO [address] [place] [address] 10/29/2021 Office Visit Cardiology Quyen Canseco CRNP [address] [place] [address] 11/01/2021 Laboratory [facility] Mobile [facility] Draw [address] [place] [address] 11/10/2021 Office Visit [address] [address] 11/15/2021 Laboratory Laboratory Processing [facility] Draw [address] [place] [address] 11/29/2021 Laboratory Laboratory Processing [facility] Draw [address] [place] [address] 12/13/2021 Laboratory Laboratory Processing [facility] Draw [address] [place] [address] 12/22/2021 Office Visit Endocrinology Alberta Duque PA-C [address] [place] [address] 12/23/2021 Office Visit Gastroenterology Lyssa Stout CRNP [address] [place] [address] 12/27/2021 Laboratory Laboratory Processing [facility] Draw [address] [place] [address] 01/04/2022 Office Visit Hematology Oncology Tono Sanchez MD [address] [place] [address] 01/10/2022 Laboratory Laboratory Processing [facility] Draw [address] [place] [address] 01/24/2022 Laboratory Laboratory Processing [facility] Mobile Home Draw [address] [place] [address] 02/07/2022 Laboratory Laboratory Processing [facility] Mobile Home Draw [address] [place] [address] 02/21/2022 Laboratory Laboratory Processing [facility] Mobile Home Draw [address] [place] [address] 03/07/2022 Laboratory Laboratory Processing [facility] Mobile Home Draw [address] [place] [address] 03/24/2022 Office Visit Pulmonary [facility]do Marquez [facility] [address] [facility] [address] 06/24/2022 Office Visit Sleep Disorders Love Francisco, DO [address] [facility] [place] [address] Scheduled Procedures Name Priority Associated [...] of this encounter Implants Implanted Type Area Airport Security Screener Device Identifier Shelf Expiration Date Model / Serial / Lot Microtech Sure Clip Implanted:Qty: 2 on 06/03/2020 by Janis Hatch DO at OR [facility] Clip N/A: Colon 04/21/2022 [facility]-F-26-2 35-C-R / / [id number] documented as of this encounter Advance Directives Documents on File Type Date Recorded Patient Elevator Repairer 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 WILL AND HEALTH CARE POA Power of Legislators 04/29/2021 12:00 AM TOM R OF DIRECTOR OF PLACEMENT HEALTH CARE POA Advanced Directive 04/01/2021 1:14 [...] Syed Bustos Spouse Emergency Contact Care Teams Embedded Linux Engineer Relationship Specialty Start Date End Date Vanita Dunn MD [address] [place] [address] PCP - General Family Medicine 03/16/21 documented as of this encounter
--- OUTSIDE RECORDS SUMMARY | 2023-05-10 19:32 | External Medical Summary | Summary of Care ---
Author Name Unknown Organization [facility] Address [place] [address] Care Team Providers Care Garden Consultant Name Role Phone Vanita Dunn MD Primary Care Provid er Reason for Visit * Reason Onset Date Comments [facility]: Maintenance 10/02/2021 Encounter Details Date Type Department Care Team Description 10/02/2021 Scheduled Telephone [facility], [facility] 132 [facility] [place] [address] [facility], Nurse [facility] 132 [facility] [place] [address] Allergies Active Allergy Reactions Severity Noted Date Comments Adhesive Tape Itching 04/29/2020 Penicillins Rash 02/12/2008 Perflutren Protein A Microsph 2019 Definity-lower back pain documented as of this encounter (statuses as of 10/02/2021) Medications Medication Sig Dispensed Refills Start Date End Date Status albuterol sulfate (PROVENTIL) (2.5 MG/3ML) 0.083% nebulizer solutionIndications: Pulmonary vascular congestion Inhale 1 Vial via nebulizer every 6 hours as needed for Wheezing. 120 Vial 11 10/02/2019 Active nystatin (NYSTOP) 237322 UNIT/GM powder Apply topically to affected area [...] of Breath, Informant: Pharmacy, Reported on 02/04/2021 DexBA Insight G6 Clinical Rehabilitation Specialist Device Use as directed. To test [...] Strip 3 10/29/2020 Active OneTouch Delica Plus [id number] TESTING once daily 100 Each 3 10/29/2020 [...] a day. 10.2 g 1 09/27/2021 Active predniSONE 20 MG Oral Tablet (Deltasone)Indicatio ns:Moderate persistent asthma with exacerbation Take 2 Tablets by mouth daily for 5 days. 10 Tablet 0 09/27/2021 2 Active Dexcom G6 Sensor use as directed to test blood sugar 4 times daily. change sensor every 10 days 3 Each 3 09/27/2021 Active documented as of this encounter (statuses as of 10/02/2021) Active Problems Problem Noted Date Food insecurity [...] as of this encounter (statuses as of 10/02/2021) Resolved Problems Problem Noted Date Resolved Date [...] pain 01/24/2012 01/17/2017 Genetic Sleep Disorder Research Other*[id number] 05/13/2011 04/07/2016 Obstructive sleep apnea 01/18/2011 12/27/19 [...] as of this encounter (statuses as of 10/02/2021) Immunizations Name Administration Dates Next Due COVID-19 [...] Telephone Encounter - Alyce Tyler RN - 10/02/2021 11:04 AM EST Phone call placed to pt to follow up from catheter removal yesterday. I spoke to the pt and her spouse. Pt denies any difficulty urinating since nova was removed yesterday. Pt states feeling as if she is emptying her bladder. Pt denies any acute needs or concerns. Pt is scheduled for a follow up call again tomorrow and [facility] on Monday. Pt encouraged to call [facility] for any changes. documented in this encounter Plan of Treatment Upcoming Encounters Date Type Specialty Care Team Description 10/03/2021 Scheduled Telephone [facility], Nurse [address] [place] [address] 10/04/2021 Laboratory Laboratory Processing [facility] Draw [address] [place] [address] 10/04/2021 Home Visit [facility] July Poe RN [address] [place] [address] 10/06/2021 Telemedicine [facility] Joselin Dawson CRNP 132 [place] [address] Kaylee Barakat, Community Health Parole Officer [address] [place] [address] 10/13/2021 Telemedicine [facility] Joselin Dawson CRNP [address] [place] [address] Kaylee Barakat, Community Health Parole Officer [address] [place] [address] 10/18/2021 Laboratory Laboratory Processing [facility] Mobile Home Draw [address] [place] [address] 10/19/2021 Appointment Radiology 10/19/2021 Appointment Radiology 10/19/2021 Appointment Radiology 10/20/2021 Office Visit Family Medicine MonaVanita MD [address] [place] [address] 10/20/2021 Immunization/Injection Hematology Oncolog y Nurse, Med 4 200 [facility] [place] [address] 10/22/2021 Office Visit Sleep Disorders Love Francisco DO [facility] [address] 10/29/2021 Office Visit Cardiology Quyen Canseco CRNP [address] [place] [address] 11/01/2021 Laboratory Laboratory [facility] Draw [address] [place] [address] 11/10/2021 Office Visit [address] [address] 11/15/2021 Laboratory Laboratory Processing [facility] Draw [address] [place] [address] 11/29/2021 Laboratory Laboratory [facility] Draw [address] [place] [address] 12/13/2021 Laboratory Laboratory Processing [facility] Draw [address] [place] [address] 12/22/2021 Office Visit Endocrinology Alberta Duque PA-C [address] [place] [address] 12/23/2021 Office Visit Gastroenterology Lyssa Stout CRNP [address] [place] [address] 12/27/2021 Laboratory Laboratory Processing [facility], [facility] Draw [address] [place] [address] 01/04/2022 Office Visit Hematology Oncology Tono Sanchez MD [address] [place] [address], [place] [address] 01/10/2022 Laboratory Laboratory Processing [facility], [facility] Draw [address] [place] [address] 01/24/2022 Laboratory Laboratory Processing [facility] Draw [address] [place] [address] 02/07/2022 Laboratory Laboratory Processing [facility] Draw [address] [place] [address] 02/21/2022 Laboratory Laboratory Processing [facility], [facility] Draw [address] [place] [address] 03/07/2022 Laboratory Laboratory Processing [facility], [facility] Mobile Home Draw [address] [place] [address] 03/24/2022 Office Visit Pulmonary Reynaldo Marquez MD [address] [place], [place] [address] 06/24/2022 Office Visit Sleep Disorders Love Francisco, DO [address] [place] [address] Scheduled Procedures Name Priority Associated Diagnoses Date/Ti [...] of this encounter Implants Implanted Type Area Market Superintendent Device Identifier Shelf Expiration Date Model / Serial / Lot Microtech Sure Clip Implanted:Qty: 2 on 06/03/2020 by Janis Hatch DO at OR [facility] Clip N/A: Colon 04/21/2022 [facility]-F-26-2 35-C-R / / [id number] documented as of this encounter Advance Directives Documents on File Type Date Recorded Patient Rooming House Keeper 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 AND HEALTH CARE POA Power of Wire Web Worker 04/29/2021 12:00 AM TOM R OF YARD PILOT HEALTH CARE POA Advanced Directive 04/01/2021 1:14 [...] Syed Bustos Spouse Emergency Contact Care Teams Garden Consultant Relationship Specialty Start Date End Date Vanita Dunn MD [address] [place] [address] PCP - General Family Medicine 03/16/21 documented as of this encounter
--- OUTSIDE RECORDS SUMMARY | 2023-05-10 19:32 | External Medical Summary ---
Author Name Unknown Address Unknown Organization [id number] [address] [place] [address] Laboratory Report Ordering Provider Test Date Status LALITO OBRIEN 10/04/2021 10:04:00 Final Observation Date Value Abnormality Reference (Units ) Status WBC, Total 10/04/2021 10:04:00 5.01 4.00-10.8 0 (K/uL) Final RBC 10/04/2021 10:04:00 2.71 Below low normal 3.8 5-5.15 (M/uL) Final Hemoglobin 10/04/2021 10:04:00 7.6 Below low normal 12 .0-15.3 (g/dL) Final HCT 10/04/2021 10:04:00 26.1 Below low normal 36. 0-45.2 (%) Final MCV 10/04/2021 10:04:00 96.3 81.5-97.5 (fL) Final MCH 10/04/2021 10:04:00 28.0 27.0-34.0 (pg) Final MCHC 10/04/2021 10:04:00 29.1 Below low normal 32. 0-36.0 (g/dL) Final RDW 10/04/2021 10:04:00 19.9 Above high normal 11 .5-15.5 (%) Final Platelets 10/04/2021 10:04:00 108 Below low normal 140 -400 (K/uL) Final MPV 10/04/2021 10:04:00 Final Performing Location [facility] [place] [address] [place] [address]
--- OUTSIDE RECORDS SUMMARY | 2023-05-10 19:32 | External Medical Summary | Summary of Care ---
Author Name Unknown Organization [facility] Address [facility] [place] [address] Care Team Providers Care Preload Supervisor Name Role Phone Vanita Dunn MD Primary Care Provid er Reason for Visit * Reason Comments [facility]: Maintenance Encounter Details Date Type Department Care Team Description 10/04/2021 Home Visit [facility], [facility] 132 [facility] [place] [address] July Poe, RN 132 [facility] [place] [address] Allergies Active Allergy Reactions Severity Noted Date Comments Adhesive Tape Itching 04/29/2020 Penicillins Rash 02/12/2008 Perflutren Protein A Microsph 2019 Definity-lower back pain documented as of this encounter (statuses as of 10/04/2021) Medications Medication Sig Dispensed Refills Start Date End Date Status albuterol sulfate (PROVENTIL) (2.5 MG/3ML) 0.083% nebulizer solutionIndications: Pulmonary vascular congestion Inhale 1 Vial via nebulizer every 6 hours as needed for Wheezing. 120 Vial 11 10/02/2019 Active nystatin (NYSTOP) 540090 UNIT/GM powder Apply topically to affected area [...] Informant: Pharmacy, Reported on 02/04/2021 Dexcom G6 Dictaphone Mechanic Device Use as directed. To test [...] Strip 3 10/29/2020 Active OneTouch Delica Plus [id number] TESTING once daily 100 Each 3 10/29/2020 [...] gone. 5 Tablet 0 10/02/2021 2 Active documented as of this encounter (statuses as of 10/04/2021) Active Problems Problem Noted Date Food insecurity [...] as of this encounter (statuses as of 10/04/2021) Resolved Problems Problem Noted Date Resolved Date [...] pain 01/24/2012 01/17/2017 Genetic Sleep Disorder Research Other*[id number] 05/13/2011 04/07/2016 Obstructive sleep apnea 01/18/2011 12/27/19 [...] as of this encounter (statuses as of 10/04/2021) Immunizations Name Administration Dates Next Due COVID-19 [...] Sign Reading Time Taken Comments Blood Pressure 108/68 10/04/2021 5:30 PM EST Pulse 64 10/04/2021 5:30 PM EST Temperature 36.5 C (97.7 F) 10/04/2021 5:30 PM ES T Respiratory Rate 18 10/04/2021 5:30 PM EST Oxygen Saturation 93% 10/04/2021 5:30 PM EST Room AIr Inhaled Oxygen Concentration - - Weight - [...] Progress Notes * July Poe RN - 10/04/2021 10:03 AM EST [facility] [employer] Head Visit Date: 10/04/2021 Time: 10:33 AM Name: Shaina Bustos : 1955 Current Concerns: Pt seen for return RN visit Started on Levaquin for RLL pneumonia Cough continues but not as harsh, per pt and cg She did begin the Levaquin - has two dose left after today Lungs continue to have rhonchi scattered throughout Pt reports she generally does feel well but not as bad as last week Had f/c removed Monday - has been urinating without any issues Blood sugar 65 during visit - pt had insulin shortly before dexcom reading and pt had not eaten anything yet today Her sugar came up to 134 after eating breakfast and drinking milk and juice Pt's dexcom is no longer covered through [facility] is aware and has sent a referral to [facility] to get it delivered Pt does not have any more dexcom left after this week - she does have glucometer supplies to do fingersticks if needed Physical Exam: BP 108/68 | Pulse 64 | Temp 36.5 C (97.7 F) | Resp 18 | SpO2 93% Comment: Room AIr Pain 6 Physical Exam Constitutional: Appearance: She is obese. HENT: Nose: Congestion (mild) present. Cardiovascular: Rate and Rhythm: Normal rate and regular rhythm. Pulses: Normal pulses. Heart sounds: Normal heart sounds. Pulmonary: Effort: Pulmonary effort is normal. Breath sounds: Rhonchi (scattered throughout) present. Abdominal: General: Bowel sounds are normal. Palpations: Abdomen is soft. Musculoskeletal: Right lower leg: Edema (+1) present. Left lower leg: Edema (+1) present. Skin: General: Skin is warm and dry. Neurological: Mental Status: She is alert and oriented to person, place, and time. Problems/Symptoms: Review of Systems Constitutional: Positive for fatigue. HENT: Positive for congestion. Eyes: Negative. Respiratory: Positive for cough (brown mucus yesterday) and shortness of breath (worse with coughing). Cardiovascular: Positive for leg swelling. Gastrointestinal: Negative. Genitourinary: Negative. Musculoskeletal: Positive for arthralgias, back pain and gait problem (non-ambulatory). Skin: Negative. Psychiatric/Behavioral: Negative. Medication Reconciliation: (See medication list) Does patient take medications as ordered: Yes Patient Well Being: PHQ2/9: No questionnaires available. No change in living situation. Denies falls Has cg 5 days a week for 8-9 hrs each day Advanced Care Planning: Living Will. and Healthcare POA. Patient's Goals of Care: 1. Attend son's wedding in February 2. Feel better 3. Stop coughing Reinforcement/Education: DIABETES: -Blood sugar testing schedule: Twice [...] hrs each day Svetlana lift for transfers Home Interventions Provided: Home Intervention: Other; Evaluation Reinforced current Plan of Care, including self-management and medication regimen Patient's 'Red Flags': 1. Increased SOB 2. Fever 3. S/s of UTI - dysuria, confusion Patient Needs to Remember: Call [facility] at with any new or worsening health concerns or problems, red flag symptoms. Referrals Needed: Other none Follow Up: Patient encouraged to call the intake phone number for all urgent but not emergent issues. Is the patient new to [facility] within the last 30 days? Yes, Is this a Transitions of Care visit? No Provider is in agreement with Plan of Care: Yes Scheduled to follow up with patient in 2 days with MARKETING SECRETARY. July Poe RN 10/04/2021 10:03 AM documented in this encounter Plan of Treatment Upcoming Encounters Date Type Specialty Care Team Description 10/06/2021 [facility]icine [facility] [address] Kaylee Barakat, [facility] Doctor [facility] [place] [address] 10/13/2021 [facility]medicine [facility] [address] Kaylee Barakat, [employer] [facility] [employer] Doctor [facility] [place] [address] 10/18/2021 Laboratory Laboratory Processing [facility], [facility] Home Draw [address] [place] [address] 10/19/2021 Appointment Radiology 10/19/2021 Appointment Radiology 10/19/2021 Appointment Radiology 10/20/2021 Office Visit Family Medicine Vanita Dunn MD [address] [place] [address] 10/20/2021 Immunization/Injection Hematology Oncolog y Nurse, Med 4 200 [facility] [place] [place] [address] 10/22/2021 Office Visit [facility] Disorders [facility] Francisco DO [facility] [address] 10/29/2021 Office Visit Cardiology [facility] Canseco [facility] [place] [address] 11/01/2021 Laboratory Laboratory Processing [facility], [facility] Draw [address] [place] [address] 11/10/2021 Office Visit Pharmacy [address] [address] 11/15/2021 Laboratory Laboratory [facility] Draw [address] [place] [address] 11/29/2021 Laboratory [facility] Draw [address] [place] [address] 12/13/2021 Laboratory Laboratory [facility] Draw [address] [place] [address] 12/22/2021 Office Visit Endocrinology Alberta Duque PA-C [address] [place] [address] 12/23/2021 Office Visit Gastroenterology Lyssa Stout CRNP [address] [place] [address] 12/27/2021 Laboratory Laboratory [facility] Draw [address] [place] [address] 01/04/2022 Office Visit Hematology Oncology Tono Sanchez MD [address] [place] [address] 01/10/2022 Laboratory Laboratory [facility] Draw [address] [place] [address] 01/24/2022 Laboratory Laboratory [facility] Draw [address] [place] [address] 02/07/2022 Laboratory Laboratory [facility], [facility] Home Draw [address] [place] [address] 02/21/2022 Laboratory Laboratory Processing [facility], [facility] Draw [address] [place] [address] 03/07/2022 Laboratory Laboratory Processing [facility], [facility] Draw [address] [place] [address] 03/24/2022 Office Visit Pulmonary Reynaldo Marquez MD [address] [place] [id number] 06/24/2022 Office Visit Sleep Disorders Love Francisco, DO 132 [facility] [place] [address] Scheduled Procedures Name Priority Associated Diagnoses Date/Ti [...] of this encounter Implants Implanted Type Area Him Coder Device Identifier Shelf Expiration Date Model / Serial / Lot Microtech Sure Clip Implanted:Qty: 2 on 06/03/2020 by Janis Hatch DO at OR [facility] Clip N/A: Colon 04/21/2022 [facility]-F-26-2 35-C-R / / [id number] documented as of this encounter Advance Directives Documents on File Type Date Recorded Patient Product Management Internship 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 WILL AND HEALTH CARE POA Power of Travel Nurse 04/29/2021 12:00 AM TOM R OF LIGHT BULB ASSEMBLER HEALTH CARE POA Advanced Directive 04/01/2021 [...] Syed Bustos Spouse Emergency Contact Care Teams Preload Supervisor Relationship Specialty Start Date End Date Vanita Dunn MD [address] [place] [address] PCP - General Family Medicine 03/16/21 documented as of this encounter"
--- OUTSIDE RECORDS SUMMARY | 2023-05-10 19:32 | External Medical Summary | Summary of Care ---
Author Name Unknown Organization [facility] Address [facility] [place] [address] Care Team Providers Care Noodle Catalyst Maker Name Role Phone Vanita Dunn MD Primary Care Provid er Encounter Details Date Type Department Care Team Description 10/02/2021 Telephone [facility], [place] 132 [facility] [place] [address] Joselin Dawson CRNP [facility] [place] [address] Allergies Active Allergy Reactions Severity Noted Date [...] 120 Vial 11 10/02/2019 Active nystatin (NYSTOP) 586621 UNIT/GM powder Apply topically to affected area [...] Informant: Pharmacy, Reported on 02/04/2021 Dexcom G6 Stave And Bolt Equalizer Device Use as directed. To test blood [...] Strip 3 10/29/2020 Active OneTouch Delica Plus [id number] TESTING once daily 100 Each 3 10/29/2020 [...] 04/23/2015 03/28/2017 Candidal vulvovaginitis 02/12/2015 06/07/20 16 HTAD (obstructive sleep apnea) 02/09/2015 Leg weakness, bilateral [...] pain 01/24/2012 01/17/2017 Genetic Sleep Disorder Research Other*[id number] 05/13/2011 04/07/2016 Obstructive sleep apnea 01/18/2011 12/27/19 [...] * Telephone Encounter - ZAK Lara - 10/02/2021 12:51 PM EST CXR showing findings concerning for RLL pneumonia. Pt states she is feeling fine ,no fevers. Levaquin sent to [facility] pharmacy to take daily for 5 days (likely better compliance for pt with one drug vs use of 2 for CAP). Advised to start ihsan. Continue to use neb at least 4 times daily. On for phone call follow up tomorrow. [facility] nurse visit scheduled for Monday. I also have visit 10/06 to follow up asdanilo. STEWART Greer. documented in this encounter Plan of Treatment Upcoming Encounters Date Type Specialty Care Team Description 10/03/2021 Scheduled Telephone [facility], Nurse Gah West [address] [place] [address] 10/04/2021 Laboratory Laboratory Processing [facility] Mobile Home Draw [address] [place] [address] 10/04/2021 Home Visit [facility] July Poe RN [address] [place] [address] 10/06/2021 Telemedicine [facility] Joselin Dawson CRNP [address] [place] [address] Kaylee Barakat, Community Health Sales Project Manager [address] [place] [address] 10/13/2021 Telemedicine [facility] Joselin Dawson CRNP [address] [place] [address] Kaylee Barakat, Community Health Sales Project Manager [address] [place] [address] 10/18/2021 Laboratory Laboratory Processing [facility] Home Draw [address] [place] [address] 10/19/2021 Appointment Radiology 10/19/2021 Appointment Radiology 10/19/2021 Appointment Radiology 10/20/2021 Office Visit Family Medicine Vanita Dunn MD [address] [place] [address] 10/20/2021 Immunization/Injection Hematology Oncolog y Nurse, Med 4 [address] [place] [address] 10/22/2021 Office Visit Sleep Disorders Love Francisco DO [address] [place] [address] 10/29/2021 Office Visit Cardiology Quyen Canseco CRNP [address] [place] [address] 11/01/2021 Laboratory [facility] Draw [address] [place] [address] 11/10/2021 Office Visit [address] [address] 11/15/2021 Laboratory Laboratory [facility] Draw [address] [place] [address] 11/29/2021 Laboratory Laboratory [facility] Draw [address] [place] [address] 12/13/2021 Laboratory Laboratory [facility] Draw [address] [place] [address] 12/22/2021 Office Visit Endocrinology Alberta Duque PA-C [address] [place], [place] [id number] 12/23/2021 Office Visit Gastroenterology Lyssa Stout CRNP [address] [place] [address] 12/27/2021 Laboratory Laboratory Processing [facility] Draw [address] [place] [address] 01/04/2022 Office Visit Hematology Oncology Tono Sanchez MD 200 [place] [address] 01/10/2022 Laboratory Laboratory Processing [facility] Draw [address] [place] [address] 01/24/2022 Laboratory Laboratory Processing [facility], [facility] Draw [address] [place] [address] 02/07/2022 Laboratory Laboratory Processing [facility], [facility] Draw [address] [place] [address] 02/21/2022 Laboratory Laboratory Processing [facility] Draw [address] [place] [address] 03/07/2022 Laboratory Laboratory Processing [facility], [facility] Draw [address] [place] [address] 03/24/2022 Office Visit Pulmonary Reynaldo Marquez MD [address] [place] [address] 06/24/2022 Office Visit Sleep Disorders Love Francisco, DO [address] [place] [address] Scheduled Procedures Name Priority Associated [...] this encounter Implants Implanted Type Area Commercial Mortgage Broker Device Identifier Shelf Expiration Date Model / Serial / Lot Microtech Sure Clip Implanted:Qty: 2 on 06/03/2020 by Janis Hatch DO at OR [facility] Clip N/A: Colon 04/21/2022 [facility]-F-26-2 35-C-R / / [id number] documented as of this encounter Advance Directives Documents on File Type Date Recorded Patient Business Transformation Manager 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 WILL AND HEALTH CARE POA Power of Oyster Harvester 04/29/2021 12:00 AM TOM R OF BUTANE COMPRESSOR OPERATOR HEALTH CARE POA Advanced Directive 04/01/2021 [...] Syed Bustos Spouse Emergency Contact Care Teams Noodle Catalyst Maker Relationship Specialty Start Date End Date Vanita Dunn MD [address], [place] [phone] PCP - General Family Medicine 03/16/21 documented as of this encounter
--- OUTSIDE RECORDS SUMMARY | 2023-05-10 19:33 | External Medical Summary | Summary of Care ---
Author Name Unknown Organization [place] [address] Care Team Providers Care Garment Manufacturer Name Role Phone Vanita Dunn MD Primary Care Provid er Reason for Visit * Reason Comments [facility]: Telehealth Encounter Details Date Type Department Care Team Description 10/01/2021 Telemedicine [facility], [facility] [address] [place] [address] Joselin Dawson, ZAK [address] [place] [address] Kaylee Barakat, Community Health Factory Engineer [address] [place] [address] Other cerebral palsy (HCC)*; Hypertensive heart disease with chronic diastolic congestive heart failure (HCC); Type II diabetes mellitus with peripheral circulatory disorder (HCC); Chronic hypoxemic respiratory failure (HCC); Moderate persistent asthma with exacerbation; Hepatic cirrhosis, unspecified hepatic cirrhosis type, unspecified whether ascites present (HCC); Iron deficiency anemia due to chronic blood loss Allergies Active Allergy Reactions Severity Noted Date Comments Adhesive Tape Itching 04/29/2020 Penicillins Rash 02/12/2008 Perflutren Protein A Microsph 2019 Definity-lower back pain documented as of this encounter (statuses as of 10/01/2021) Medications Medication Sig Dispensed Refills Start Date End Date Status albuterol sulfate (PROVENTIL) (2.5 MG/3ML) 0.083% nebulizer solutionIndications: Pulmonary vascular congestion Inhale 1 Vial via nebulizer every 6 hours as needed for Wheezing. 120 Vial 11 10/02/2019 Active nystatin (NYSTOP) 497097 UNIT/GM powder Apply topically to affected area [...] Informant: Pharmacy, Reported on 02/04/2021 Dexcom G6 Buildings And Grounds Coordinator Device Use as directed. To test [...] Strip 3 10/29/2020 Active OneTouch Delica Plus [id number] TESTING once daily 100 Each 3 10/29/2020 [...] for 5 days. 10 Tablet 0 09/27/2021 Active Dexcom G6 Sensor use as directed to test blood sugar 4 times daily. change sensor every 10 days 3 Each 3 09/27/2021 Active documented as of this encounter (statuses as of 10/01/2021) Active Problems Problem Noted Date Food insecurity [...] as of this encounter (statuses as of 10/01/2021) Resolved Problems Problem Noted Date Resolved Date [...] 45.0-49.9 in adult /01/17/2017 Overview: bmi= 48.04 3/30/16 Need for shingles [...] pain 01/24/2012 01/17/2017 Genetic Sleep Disorder Research Other*[id number] 05/13/2011 04/07/2016 Obstructive sleep apnea 01/18/2011 12/27/19 [...] as of this encounter (statuses as of 10/01/2021) Immunizations Name Administration Dates Next Due COVID-19 [...] Reading Time Taken Comments Blood Pressure 110/60 10/01/2021 10:27 AM EST Pulse 64 10/01/2021 10:27 AM EST Temperature 37.1 C (98.8 F) 10/01/2021 10:[address] Respiratory Rate 20 10/01/2021 10:27 AM EST Oxygen Saturation 94% 10/01/2021 10:27 AM EST Inhaled Oxygen Concentration - - [...] encounter Progress Notes * ZAK Lara - 10/01/2021 9:42 AM EST [facility] Visit Date: 10/01/2021 Plan/Discussion: Unfortunately there was video difficulty for today's visit, completed only about 8 minutes of videotime that was with poor connection. Unable to auscultate lungs, etc. In home nurse visit requested to assess lungs. Also to remove nova. Her complaint of "air" sensation in perineal area is vague, EMILE saw no rash. Explained no indication for nova (she wanted it only for convenience for her spouse.) Advised this is putting her high risk for infection and she is agreeable to have it removed today. Her SpO2 improved today on RA and she reports she is feeling better. Spent approx 15 minutes on telephone speaking with EMILE, spouse and pt. She does not want to go to staff mine warfare officer at this time, she has her pelvic u/s rescheduled at [place] 10/19 (unable to do yesterday d/t not having candace to transfer her). She wants to keep that imaging scheduledand follow up with pcpo 10/20. No further visible perineal bleeding. See phone note today--consult with Dr. Sanchez for recommendation for mgmt of her anemia. Will await his response. hgb with slight improvement yesterday. Pt needs followed closely and high risk for complications. [facility] nurse visit 10/04, I am seeing her back 10/06 and again 10/13. PCP 10/20, cardiology 10/29 A total of 8 minutes was spent face to face via video-based telemedicine. Diagnosis and Associated Orders: ICD-10-CM 1. Other cerebral palsy (HCC) G80.8 2. Hypertensive heart disease with chronic diastolic congestive heart failure (HCC) I11.0 I50.32 3. Type II diabetes mellitus with peripheral circulatory disorder (HCC) E11.51 4. Chronic hypoxemic respiratory failure (HCC) J96.11 5. Moderate persistent asthma with exacerbation J45.41 6. Hepatic cirrhosis, unspecified hepatic cirrhosis type, unspecified whether ascites present (HCC)K74.60 7. Iron deficiency anemia due to chronic blood loss D50.0 No orders of the defined types were placed in this encounter. HPI: Patient location: HOME. I was not in a hospital or clinic location. After connecting through Hullo, patient was verified with two unique identifiers. Patient (or authorized legal client representative) was then informed that this was a Telemedicine visit and being conducted confidentially over secure lines. Methods to assure confidentiality were taken. Patient acknowledged consent and understanding of privacy and security of the Telemedicine visit. The patient agreed to participate. Telehealth visit type: Yes, Acute What accessories are you using? None (Video Only) Was there a change to the patient's care plan? Yes, In-Person Assessment Requested Shaina Bustos is a 66 year old female seen in her home for a [facility] telemedicine providervisit. Follow up visit. Pt seen Monday and hypoxic on room air--recent dx in ED 09/23 rhinovirus. Pt with asthma, no regular use of singulair. Given prednisone and advised to wear oxygen (via non-invasive home ventilator) to maintain Sp02 >90%. [facility] nurse made follow up visit the following day --spouse still had not picked up prednisone so dose was given from her med box. Also advised to use her neb regularly. +cerebral palsy --has hospital bed and motorized [...] persistent anemia. She is diabetic followed by [facility] There was also concern of possible vaginal bleeding? Reported to GI--hematuria and vaginal bleeding? Follow up at pcp office 09/20 and pelvic u/s ordered. She was given bactrim for MRSA UTI. She went to [facility] yesterday for the u/s but does not appear it was completed. Follow up CXR was ordered and completed but still in process. Today pt called triage and reported concern that her nova may have a hole in it. She feels like there is air? There is urine in tube and bag. No pain, feels air in perineal area when she moved. She likes the catheter because it causes her spouse less work to have to roll her and clean her. She is checking her Spo2 with pulse oximeter and running >90%. Component Latest Ref Rng & Units 09/23/2021 [...] 9.0 Component Latest Ref Rng & Units 09/20/2021 09/23/2021 09/30/2021 WBC 4.00 - 10.80 K/uL 3.72 (L) 4.70 6.47 RBC 3.85 - 5.15 M/uL 2.66 (L) 2.60 (L) 2.77 (L) HGB 12.0 - 15.3 g/dL 7.6 (L) 7.3 (L) 7.9 (L) HCT 36.0 - 45.2 % 26.9 (L) 25.7 (L) 27.6 (L) MCV 81.5 - 97.5 fL 101.1 (H) 98.8 (H) 99.6 (H) MCH 27.0 - 34.0 pg 28.6 28.1 28.5 MCHC 32.0 - 36.0 g/dL 28.3 (L) 28.4 (L) 28.6 (L) RDW 11.5 - 15.5 % 20.2 (H) 20.3 (H) 19.9 (H) MPV 6.6 - 11.1 fL 13.2 (H) 13.1 (H) Nucleated RBC <=0 /100 WBCs 1 (H) 0 0 Plt 140 - 400 K/uL 90 (L) 100 (L) 117 (L) Component Latest Ref Rng & Units 09/23/2021 Iron 33 - 151 ug/dL 39 Iron Binding Capacity 250 - 425 ug/dL 288 Transferrin Saturation Percent 15 - 55 % 14 (L) Ferritin 13 - 150 ng/mL 33 ROS: Review of Systems Constitutional: Negative for activity change, appetite change, chills and fever. Respiratory: Negative for cough and wheezing. Cardiovascular: Negative for leg swelling. Genitourinary: Negative for hematuria. See HPI Physical Exam (performed by employment assistant in the patient's home and limited to available telehealth tools): BP 110/60 (BP Site: Right Arm) | Pulse 64 | Temp 37.1 C (98.8 F) | Resp 20 | SpO2 94% BP Readings from Last 5 Encounters: 10/01/21 102/60 10/01/21 110/60 09/28/21 108/68 09/27/21 90/52 09/23/21 111/62 Physical Exam Constitutional: General: She is not in acute distress. Appearance: She is obese. Pulmonary: Effort: Pulmonary effort is normal. [facility] 5:22 PM * Kaylee Glover Yuval, [facility] Factory Engineer - 10/01/2021 9:39 AM EST Community Health Factory Engineer Visit Date: 10/01/2021 Time: 9:39 AM Name: Shaina Bustos : 1955 Referral Source: Provider Source of Information: Patient Spoken language: Macedonian Patient can read in Macedonian: Yes. Dietary Server needed: No. COVID-19 screening completed: Yes Vitals: Vital signs completed: Yes, vital signs within normal range. BP 110/60 (BP Site: Right Arm) | Pulse 64 | Temp 37.1 C (98.8 F) | Resp 20 | SpO2 94% Condition Changes: Changes in health or social status since last visit: Felling her cathter may have a hole in the hose Lactulose is causing diaharria Coughing a lot wheezing SOB Reporting dexcome no longer covered BSG has been High patient is currently taking prednisone BSG 135 at time of visit Taking 40units novalog In am The patient has new concerns since last visit: Yes, Progress towards goals since last visit: coughing a lot Medications: Medication review completed? Yes, no gaps identified Does the patient have barriers to medication adherence? No. Patient reports difficulty paying for medications or might in the future: No. Telehealth: This is a telehealth visit: Yes. Type of telehealth visit: Return/Routine Visit conducted with: Physician/AP Symptoms Surveys and Evaluations: MAHC10 completed this visit: Yes. Score is 4 or more? Yes, notified Provider/Outcomes Specialist Last flowsheet values for MAHC10: Age 65+: [...] at risk for fallin (10/01/2021 10:00 AM) Patient's 'Red Flags': 1. S/s of UTI - Fever, confusion 2. Increased SOB 3. Fever Plan: Reinforced care plan established by care team . Follow Up: Patient encouraged to call the intake phone number for all urgent but not emergent issues. Scheduled to follow up with patient as needed Kaylee Barakat Community Health Factory Engineer 10/01/2021 9:39 AM documented in this encounter Plan of Treatment Upcoming Encounters Date Type Specialty Care Team Description 10/02/2021 Scheduled Telephone [facility], Nurse [place] [address] [facility] [place] [id number] 10/03/2021 Scheduled Telephone [facility], Nurse [place] [address] [place] [id number] 10/04/2021 Laboratory Laboratory Processing [facility] Mobile Home Draw [address] [place] [address] 10/04/2021 Home Visit [facility] July Poe RN [address] [place] [address] 10/06/2021 Telemedicine [facility] Joselin Dawson CRNP [address] [place] [address] Kaylee Barakat, Community Health Factory Engineer [address] [place] [address] 10/13/2021 Telemedicine [facility] Joselin Dawson CRNP [address] [place] [address] Kaylee Barakat, Community Health Factory Engineer [address] [place] [address] 10/18/2021 Laboratory Laboratory Processing [facility] Mobile Home Draw [address] [place] [address] 10/19/2021 Appointment Radiology 10/19/2021 Appointment Radiology 10/19/2021 Appointment Radiology 10/20/2021 Office Visit Family Medicine Vanita Dunn MD [address] [place] [address] 10/20/2021 Immunization/Injection Hematology Oncolog y Nurse, Med [address] [place] [address] 10/22/2021 Office Visit Sleep Disorders Love Francisco [facility] [address] [facility] [address] 10/29/2021 Office Visit Cardiology Quyen Canseco CRNP [address] [place] [address] 11/01/2021 Laboratory Laboratory Processing [facility] Mobile Home Draw [address] [place] [address] 11/10/2021 Office Visit [facility] [address] [place] [address] 11/15/2021 Laboratory Laboratory Processing [facility] Draw [address] [place] [address] 11/29/2021 Laboratory Laboratory Processing [facility] Draw [address] [place] [address] 12/13/2021 Laboratory Laboratory Processing [facility] Draw [address] [place] [address] 12/22/2021 Office Visit Endocrinology Alberta Duque PA-C [address] [place] [address] 12/23/2021 Office Visit Gastroenterology Lyssa Stout CRNP [address] [place] [address] 12/27/2021 Laboratory Laboratory Processing [facility] Draw [address] [place] [address] 01/04/2022 Office Visit Hematology Oncology Tono Sanchez MD [address] [place] [address] 01/10/2022 Laboratory Laboratory Processing [facility] Draw [address] [place] [address] 01/24/2022 Laboratory Laboratory Processing [facility] Mobile Home Draw [address] [place] [address] 02/07/2022 Laboratory Laboratory Processing [facility] Mobile Home Draw [address] [place] [address] 02/21/2022 Laboratory Laboratory Processing [facility] Mobile Home Draw [address] [place] [address] 03/07/2022 Laboratory Laboratory Processing [facility] Mobile Home Draw [address] [place] [address] 03/24/2022 Office Visit Pulmonary [facility]aldo Marquez [facility] [address] [facility] [id number] 06/24/2022 Office Visit Sleep Disorders Love Francisco, DO [address] [facility] [place] [address] Scheduled Procedures Name Priority Associated [...] of this encounter Implants Implanted Type Area Dynamo Tender Device Identifier Shelf Expiration Date Model / Serial / Lot [employer] Sure Clip Implanted:Qty: 2 on 06/03/2020 by Janis Hatch DO at [facility] Clip N/A: Colon 04/21/2022 [facility]-F-[id number] 35-C-[id number] / / [id number] documented as of this encounter Visit Diagnoses Diagnosis Other cerebral palsy (HCC)- Primary Hypertensive heart disease with chronic diastolic congestive heart failure (HCC) Type II diabetes mellitus with peripheral circulatory disorder (HCC) Type II or unspecified type diabetes mellitus with peripheral circulatory disorders, not stated as uncontrolled Chronic hypoxemic respiratory failure (HCC) Chronic respiratory failure Moderate persistent asthma with exacerbation Unspecified asthma, with exacerbation Hepatic cirrhosis, unspecified hepatic cirrhosis type, unspecified whether ascites present (HCC) 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 (chronic) documented in this encounter Advance Directives Documents on File Type Date Recorded Patient Product Development Manager Expl 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 AND HEALTH CARE POA Power of Director Social 04/29/2021 12:00 AM TOM R OF STRATEGIC CONSULTANT HEALTH CARE POA Advanced Directive 04/01/2021 1:14 [...] Syed Bustos Spouse Emergency Contact Care Teams Garment Manufacturer Relationship Specialty Start Date End Date Vanita Dunn MD [address] [place] [address] PCP - General Family Medicine 03/16/21 documented as of this encounter
--- OUTSIDE RECORDS SUMMARY | 2023-05-10 19:34 | External Medical Summary | Summary of Care ---
Author Name Unknown Organization [place] [address] Care Team Providers Care Property Valuer Name Role Phone Vanita Dunn MD Primary Care Provid er Reason for Visit * Reason Comments [facility]: Acute Encounter Details Date Type Department Care Team Description 09/28/2021 Home Visit [facility], [facility] 132 [facility] [place] [address] July Poe, RN 132 [facility] [place] [address] Allergies Active Allergy Reactions Severity Noted Date Comments Adhesive Tape Itching 04/29/2020 Penicillins Rash 02/12/2008 Perflutren Protein A Microsph 2019 Definity-lower back pain documented as of this encounter (statuses as of 09/30/2021) Medications Medication Sig Dispensed Refills Start Date End Date Status albuterol sulfate (PROVENTIL) (2.5 MG/3ML) 0.083% nebulizer solutionIndications: Pulmonary vascular congestion Inhale 1 Vial via nebulizer every 6 hours as needed for Wheezing. 120 Vial 11 10/02/2019 Active nystatin (NYSTOP) 400282 UNIT/GM powder Apply topically to affected area [...] Informant: Pharmacy, Reported on 02/04/2021 Dexcom G6 Moccasin Sewer Device Use as directed. To test [...] Strip 3 10/29/2020 Active OneTouch Delica Plus [id number] TESTING once daily 100 Each 3 10/29/2020 [...] as of this encounter (statuses as of 09/30/2021) Active Problems Problem Noted Date Food insecurity 09/20/2021 Overview: Per [facility] Protocol Chronic diastolic (congestive) heart jaymie lure 09/13/2021 Portal hypertensive gastropathy 03/16/20 21 Cyst of pancreas 02/15/2021 Esophageal varices 07/06/2020 Iron deficiency anemia due [...] as of this encounter (statuses as of 09/30/2021) Resolved Problems Problem Noted Date Resolved Date Food insecurity 04/19/2021 09/13/2021 Overview: Per [facility] Protocol Lactic acidosis 03/22/2021 09/13/2021 Anginal chest pain at rest 02/20/202109/13 Acute on chronic heart failu re with preserved ejection fraction (HFpEF) 02/18/2021 09/13/2021 Melena 02/15/2021 09/13/2021 Vancomycin resistant enterococcus culture positi ve 02/15/2021 09/13/2021 Urinary catheter dysfunction 02/15/202111/2021 AMS (altered mental status) 02/04/202101/10 Cardiomegaly 01/30/2021 [...] pain 01/24/2012 01/17/2017 Genetic Sleep Disorder Research Other*[id number] 05/13/2011 04/07/2016 Obstructive sleep apnea 01/18/2011 12/27/19 [...] as of this encounter (statuses as of 09/30/2021) Immunizations Name Administration Dates Next Due COVID-19 [...] Reading Time Taken Comments Blood Pressure 108/68 09/28/2021 9:46 AM EST Pulse 70 09/28/2021 9:46 AM EST Temperature 36.3 C (97.4 F) 09/28/2021 9 :46 AM EST Respiratory Rate 18 09/28/2021 9:46 AM EST Oxygen Saturation 93% 09/28/2021 10: 08 AM EST cpap on at 2 l/min Inhaled Oxygen Concentration - - Weight - [...] Progress Notes * July Poe RN - 09/28/2021 7:15 AM EST [facility] TenderBradder Visit Date: 09/28/2021 Time: 10:15 AM Name: Shaina Bustos : 1955 Current Concerns: Acute f/u visit for cough Yesterday pt was prescribed prednisone 40mg x 5 days for ongoing cough/asthma Going to chicken picker this afternoon First dose given out of med box now is going to pharmacy this afternoon Pulse ox yesterday was 88% and oxygen was applied - it was then 92% Today pulse ox is 88% on RA Applied cpap mask with oxygen at 2 l/min and pulse ox came up to 93% Pulse ox supplied to pt so that cg/ can monitor to keep Sp02 above 90% Using nebs every 4 hrs - cg present and reports she makes sure she has them while she is here, but unsure if gives them and cg confirm that she is getting lactulose twice a day so that she is having multiple bowel movements a day Problems/Symptoms: Review of Systems Constitutional: Positive for fatigue. HENT: Positive for congestion. Respiratory: Positive for cough (frequent, moist, non-productive). Cardiovascular: Positive for leg swelling. Physical Exam: BP 108/68 | Pulse 70 | Temp 36.3 C (97.4 F) | Resp 18 | SpO2 93% Comment: cpap on at 2 l/min Pain 0 Physical Exam Constitutional: Appearance: She is obese. HENT: Nose: Congestion present. Cardiovascular: Rate and Rhythm: Normal rate and regular rhythm. Pulses: Normal pulses. Heart sounds: Normal heart sounds. Pulmonary: Effort: Pulmonary effort is normal. Breath sounds: Rhonchi present. Abdominal: Palpations: Abdomen is soft. Skin: General: Skin is warm and dry. Neurological: Mental Status: She is alert. Treatment/Plan: Continue meds as prescribed composing room supervisor prednisone and finish course of pred burst Use cpap to keep pulse ox above 90% Use nebs 4x a day Frequent repositioning Finish entire course of abx Low Na , CCD diet Cg 5 days a week for 8-9 hrs each day Svetlana lift for transfers Home Interventions Provided: Home Intervention: Other; Evaluation Reinforced current Plan of Care, including self-management and medication regimen Patient's Goals of Care: 1. Feel better 2. Go to son's wedding in February Patient's 'Red Flags': 1. S/S of UTI - fever, confusion 2. Increased SOB 3. Fever Patient Needs to Remember: Call [facility] at with any new or worsening health concerns or problems, red flag symptoms. Referrals Needed: Other none at this time Follow Up: Patient encouraged to call the intake phone number for all urgent but not emergent issues. Scheduled to follow up with patient in 24 hrs. July Poe RN 09/28/2021 7:15 AM documented in this encounter Plan of Treatment Upcoming Encounters Date Type Specialty Care Team Description 09/30/2021 Pharmacy Pharmacy [address] [address] Type 2 diabetes mellitus with hemoglobin A1c goal of less than 7.0% ([facility])* 10/01/2021 Telemedicine [facility] Joselin Dawson CRNP [address] [address] Kaylee Barakat, Community Health Learning Consultant [address] [place] [address] 10/04/2021 Laboratory Laboratory Processing [facility] Draw [address] [place] [address] 10/04/2021 [facility] Visit [facility] [place] [address] 10/06/2021 Telemedicine [facility] Joselin Dawson CRNP [address] [place] [address] Kaylee Barakat, Community Health Learning Consultant [address] [place] [address] 10/13/2021 Telemedicine [facility] Joselin Dawson CRNP [address] [place] [address] Kaylee Barakat, Community Health Learning Consultant [address] [place] [address] 10/18/2021 Laboratory Laboratory Processing [facility] Draw [address] [place] [address] 10/19/2021 Appointment Radiology 10/19/2021 Appointment Radiology 10/19/2021 Appointment Radiology 10/20/2021 Office Visit Family Medicine Vanita Dunn MD [address] [place] [address] 10/20/2021 Immunization/Inject ion Hematology Oncology Nurse, Med 4 [address] [place] [address] 10/22/2021 Office Visit Sleep Disorders Love Francisco DO [address] [place] [address] 10/29/2021 Office Visit Cardiology Quyen Canseco CRNP [address] [place] [address] 11/01/2021 Laboratory Laboratory Processing [facility] [address] [place] [address] 11/10/2021 Office Visit Pharmacy [facility] [address] [place] [address] 11/15/2021 Laboratory Laboratory Processing [facility] [address] [place] [address] 11/29/2021 Laboratory Laboratory Processing [facility] [address] [place] [address] 12/13/2021 Laboratory Laboratory Processing [facility] [address] [place] [address] 12/22/2021 Office Visit Endocrinology Alberta Duque PA-C [address] [place] [address] 12/23/2021 Office Visit Gastroenterology Lyssa Stout CRNP [address] [place] [address] 12/27/2021 Laboratory Laboratory Processing [facility] [address] [place] [address] 01/04/2022 Office Visit Hematology Oncology Tono Sanchez MD [address] [place] [address] 01/10/2022 Laboratory Laboratory Processing [facility] [address] [place] [address] 01/24/2022 Laboratory Laboratory Processing [facility] [address] [place] [address] 02/07/2022 Laboratory Laboratory Processing [facility] [address] [place] [address] 02/21/2022 Laboratory Laboratory Processing [facility] [address] [place] [address] 03/07/2022 Laboratory Laboratory Processing [facility] [address] [place] [address] 03/24/2022 Office Visit Pulmonary Reynaldo Marquez MD [address] [facility] [place] [id number] 06/24/2022 Office Visit Sleep Disorders Love Francisco, DO [address] [place] [address] Scheduled Procedures Name Priority Associated Diagnoses Date/Ti [...] of this encounter Implants Implanted Type Area Historic Clothing And Costume Maker Device Identifier Shelf Expiration Date Model / Serial / Lot Microtech Sure Clip Implanted:Qty: 2 on 06/03/2020 by Janis Hatch DO at OR [facility] Clip N/A: Colon 04/21/[address] [facility]-F-26-2 35-C-R / / [id number] documented as of this encounter Advance Directives Documents on File Type Date Recorded Patient Head Of Acquisitions 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 WILL LIVING WILL AND HEALTH CARE POA [facility] 04/29/2021 12:00 AM [facility] POA Advanced Directive 04/01/2021 1:14 [...] Syed Bustos Spouse Emergency Contact Care Teams Property Valuer Relationship Specialty Start Date End Date Vanita Dunn MD [address] [place] [address] PCP - General Family Medicine 03/16/21 documented as of this encounter"
--- OUTSIDE RECORDS SUMMARY | 2023-05-10 19:34 | External Medical Summary | Summary of Care ---
Author Name Unknown Organization [place] [address] Care Team Providers Care Citizen Participation Specialist Name Role Phone Vanita Dunn MD Primary Care Provid er Reason for Visit * Reason Comments [facility]: Acute Encounter Details Date Type Department Care Team Description 10/01/2021 Home Visit [facility], [facility] 132 [facility] [place] [address] July Poe, RN 132 [facility] [place] [address] Allergies Active Allergy Reactions Severity Noted Date [...] 120 Vial 11 10/02/2019 Active nystatin (NYSTOP) 443564 UNIT/GM powder Apply topically to affected area [...] Informant: Pharmacy, Reported on 02/04/2021 Dexcom G6 Rn Lvn Device Use as directed. To test blood [...] Strip 3 10/29/2020 Active OneTouch Delica Plus [id number] TESTING once daily 100 Each 3 10/29/2020 [...] pain 01/24/2012 01/17/2017 Genetic Sleep Disorder Research Other*[id number] 05/13/2011 04/07/2016 Obstructive sleep apnea 01/18/2011 12/27/19 [...] Sign Reading Time Taken Comments Blood Pressure 102/60 10/01/2021 3:08 PM EST Pulse 74 10/01/2021 3:08 PM EST Temperature 36.3 C (97.4 F) 10/01/2021 3:[address] Respiratory Rate 18 10/01/2021 3:08 PM EST Oxygen Saturation 91% 10/01/2021 3:08 PM EST Inhaled Oxygen Concentration - - [...] Progress Notes * July Poe RN - 10/01/2021 3:10 PM EST [facility] Sludge Control AttendantPresser Machine Visit Date: 10/01/2021 Time: 3:11 PM Name: Shaina Bustos : 1955 Current Concerns: Pt seen for acute visit to check lungs and remove nova catheter Pt/ feels cough is less frequent Lung sounds improved since last visit - still has rhonchi of b/l lower lobes and faint of right upper lobe - reports to ZAK Dawson Nova catheter removed Pt tolerated well. Encouraged to call over the weekend if unable to urinate or having any other issues. Pt reports she has had catheters in past and never had issues when removed. RNCM visit again Wednesday 10/04 F/U calls over weekend Problems/Symptoms: Review of Systems Constitutional: Positive for fatigue. HENT: Positive for congestion. Respiratory: Positive for cough. Cardiovascular: Positive for leg swelling. Physical Exam: BP 102/60 | Pulse 74 | Temp 36.3 C (97.4 F) | Resp 18 | SpO2 91% Pain 0 Physical Exam Constitutional: Appearance: She is obese. Cardiovascular: Rate and Rhythm: Normal rate and regular rhythm. Pulses: Normal pulses. Heart sounds: Normal heart sounds. Pulmonary: Breath sounds: Rhonchi (b/l lower lobes, RUL) present. Skin: General: Skin is warm and dry. Neurological: Mental Status: She is alert. Treatment/Plan: Continue meds as prescribed support coordinator prednisone and finish course of pred burst Use cpap to keep pulse ox above 90% Use nebs 4x a day Frequent repositioning Finish entire course of abx Low Na , CCD diet Cg 5 days a week for 8-9 hrs each day Svetlana lift for transfers Home Interventions Provided: Home Intervention: Other; Nova cath removed, Evaluation Patient's Goals of Care: 1. Son's wedding in February 2. Feel better 3. Stop coughing Patient's 'Red Flags': 1. S/s of UTI - dysuria, confusion 2. fever 3. Increased SOB Patient Needs to Remember: Call [facility] at with any new or worsening health concerns or problems, red flag symptom Referrals Needed: Other none Follow Up: Patient encouraged to call the intake phone number for all urgent but not emergent issues. Scheduled to follow up with patient in 24 hrs. July Poe RN 10/01/2021 3:11 PM documented in this encounter Plan of Treatment Upcoming Encounters Date Type Specialty Care Team Description 10/02/2021 Scheduled Telephone [facility], Nurse [address] [place] [address] 10/03/2021 Scheduled Telephone [facility], Nurse Brady Chavez [address] [place] [address] 10/04/2021 Laboratory Laboratory Processing [facility] Draw [address] [place] [address] 10/04/2021 Home Visit [facility] July Poe RN [address] [place] [address] 10/06/2021 Telemedicine [facility] Joselin Dawson CRNP [address] [place] [address] Kaylee Barakat, Community Health Sleeping Car Conductor [address] [place] [address] 10/13/2021 Telemedicine [facility] Joselin Dawson CRNP [address] [place] [address] Kaylee Barakat, Community Health Sleeping Car Conductor [address] [place] [address] 10/18/2021 Laboratory Laboratory Processing [facility] Draw [address] [place] [address] 10/19/2021 Appointment Radiology 10/19/2021 Appointment Radiology 10/19/2021 Appointment Radiology 10/20/2021 Office Visit Family Medicine Vanita Dunn MD [address], [place] [phone] 10/20/2021 Immunization/Injection Hematology Oncolog y Nurse, Med 4 [address] [facility] [place] [address] 10/22/2021 Office Visit Sleep Disorders Love Francisco DO [address] [place] [address] 10/29/2021 Office Visit Cardiology Quyen Canseco CRNP [address] [place] [address] 11/01/2021 Laboratory Laboratory Processing [facility] [address] [place] [address] 11/10/2021 Office Visit [address] [address] 11/15/2021 Laboratory Laboratory Processing [facility] [address] [place] [address] 11/29/2021 Laboratory Laboratory Processing [facility] [address] [place] [address] 12/13/2021 Laboratory Laboratory Processing [facility] [address] [place] [address] 12/22/2021 Office Visit Endocrinology Alberta Duque PA-C [address] [place] [address] 12/23/2021 Office Visit Gastroenterology Lyssa Stout CRNP [address] [place] [address] 12/27/2021 Laboratory Laboratory Processing [facility] [address] [place] [address] 01/04/2022 Office Visit Hematology Oncology Tono Sanchez MD [address] [place] [address] 01/10/2022 Laboratory Laboratory Processing [facility] [address] [place] [address] 01/24/2022 Laboratory Laboratory Processing [facility] [address] [place] [address] 02/07/2022 Laboratory Laboratory Processing [facility] [address] [place] [address] 02/21/2022 Laboratory Laboratory Processing [facility] [address] [place] [address] 03/07/2022 Laboratory Laboratory Processing [facility] [address] [place] [address] 03/24/2022 Office Visit Pulmonary Reynaldo Marquez MD [address] [place], [place] [phone] 06/24/2022 Office Visit Sleep Disorders Love Francisco, DO [facility] [address] Scheduled Procedures Name Priority Associated Diagnoses Date/Ti [...] of this encounter Implants Implanted Type Area Finishing Operator Device Identifier Shelf Expiration Date Model / Serial / Lot [employer] Sure Clip Implanted:Qty: 2 on 06/03/2020 by Janis Hatch, at OR [facility] Clip N/A: Colon 04/21/2022 [facility] 35-C-R / / [id number] documented as of this encounter Advance Directives Documents on File Type Date Recorded Patient Motor Bus Driver 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 WILL AND HEALTH CARE POA Power of Casting Inspector 04/29/2021 12:00 AM [facility] R OF BENCH MACHINE OPERATOR HEALTH CARE POA Advanced Directive [...] File Name Relationship Healthcare Agent [facility] p Communication Syed Bustos Spouse Emergency Contact Care Teams Citizen Participation Specialist Relationship Specialty Start Date End Date Vanita Dunn MD [address], [place] [phone] PCP - General Family Medicine 03/16/21 documented as of this encounter"
--- OUTSIDE RECORDS SUMMARY | 2023-05-10 19:34 | External Medical Summary | Summary of Care ---
Author Name Unknown Organization [facility] [place] [address] Care Team Providers Care Nurse School Name Role Phone Vanita uDnn MD Primary Care Provid er Reason for Visit * Reason Onset Date Comments [facility]: Maintenance 10/01/2021 Encounter Details Date Type Department Care Team Description 10/01/2021 Telephone [facility], [facility] [address] [facility] [place] [address] [facility], Nurse [facility] [address] [facility] [place] [address] [facility]: Maintenance Allergies Active Allergy [...] 120 Vial 11 10/02/2019 Active nystatin (NYSTOP) 573186 UNIT/GM powder Apply topically to affected area [...] of Breath, Informant: Pharmacy, Reported on 02/04/2021 DexJW Player G6 Finishing Technician Device Use as directed. To test [...] Strip 3 10/29/2020 Active OneTouch Delica Plus [id number] TESTING once daily 100 Each 3 10/29/2020 [...] pain 01/24/2012 01/17/2017 Genetic Sleep Disorder Research Other*[id number] 05/13/2011 04/07/2016 Obstructive sleep apnea 01/18/2011 12/27/19 [...] Telephone Encounter - Carlos Khoury DO - 10/01/2021 9:13 AM EST [facility] Phone Encounter Reviewed phone message. I agree w/ the advice offered via phone by our intake nursing team. Please let me know via encounter or TT message if there is any change Thank you in advance, I appreciate it. Carlos Khoury DO [facility] Spot Machine Operator - [facility] 10/01/2021 * Telephone Encounter - Michelle Vyas RN - 10/01/2021 8:53 AM EST [facility] lining marker Acute Call Date: 10/01/2021 Time: 8:53 AM Name: Shaina Glover Juli : 1955 Caller: Shaina Bustos Relationship to Self Chief Complaint Patient presents with [facility]: Maintenance HPI: Shaina Bustos is a 66 year old female that is calling [facility] to report that she has "air" coming out of her catheter. Could not tell me where the air was coming out of. There is urine the bag and tube No leaking of urine and draining. She could not tell me if it was dislodged. She could not tell me how long the catheter was in . Could not tell me why she has one. She said it looks like it is not out Patient has no HH agency to manage catheter. Did explain that if she is keepingher catheter she would need a HH agency to manage catheter. .Nursing Assessment: Patient's chief complaint for this call: Other, describe "air" from Symptom Assessment Onset of Symptoms: Less than 24 hours What makes symptom worse: nothing What makes symptom better: nothing What has the patient tried to treat the symptom: nothing Pain Denies pain Baseline Assessment Able to performing ADLs at baseline (walking, daily tasks, etc.): Yes Chief Complaint is related to a chronic condition: No Patient has been ordered DME equipment (assistive devices, respiratory equipment, etc.): Yes Describe DME devices: catheter, walker, wheel chair Patient is using DME device as directed: Yes Medication Reconciliation: (See medication list) Taking medication as ordered: Yes Medications ordered/taking to treat reason for call: No Reinforcement Education: Take medications as ordered Drink fluids to stay hydrated within fluid limits Catheter care F/U phone calls Treatment/Plan Level of call: Acute Appointment scheduled for same day: No *Has a telemed appointment today at 10 am with Joselin Dawson. TT to Joselin She said the patient wanted the catheter kept in from ER. She is going to TT me after the telemed to let me know if we need to send someone to remove it or get order for HH. Call back instructions provided to patient. Routed to care team to review and make recommendations if warranted. documented in this encounter Plan of Treatment Upcoming Encounters Date Type Specialty Care Team Description 10/01/2021 Telemedicine Done In :[facility] Joselin Dawson, ZAK [address] [facility] [place] [address] Kaylee Barakat, Community Health Core Drill Operator Helper [address] [facility] [address] [place] [address] 10/02/2021 Scheduled Telephone [facility], Nurse [address] [place] [address] 10/03/2021 Scheduled Telephone [facility], Nurse [address] [place] [address] 10/04/2021 Laboratory Laboratory Processing [facility] Mobile Home Draw [address] [place] [address] 10/04/2021 Home Visit [facility] July Poe RN 132 [place] [address] 10/06/2021 Telemedicine [facility] Joselin Dawson CRNP [address] [place] [address] Kaylee Barakat, Community Health Core Drill Operator Helper [address] [place] [address] 10/13/2021 Telemedicine [facility] Joselin Dawson CRNP [address] [place] [address] Kaylee Barakat, Community Health Core Drill Operator Helper [address] [place] [address] 10/18/2021 Laboratory Laboratory Processing [facility], [facility] Mobile Home Draw [address] [place] [address] 10/19/2021 Appointment Radiology 10/19/2021 Appointment Radiology 10/19/2021 Appointment Radiology 10/20/2021 Office Visit Family Medicine Vanita Dunn MD [address] [place] [address] 10/20/2021 Immunization/Injection Hematology Oncolog y Nurse, Med [address] [place] [address] 10/22/2021 Office Visit Sleep Disorders Love Francisco DO [address] [place] [address] 10/29/2021 Office Visit Cardiology Quyen Canseco CRNP [address] [place] [address] 11/01/2021 Laboratory Laboratory Processing [facility] Mobile Home Draw [address] [place] [address] 11/10/2021 Office Visit Pharmacy [facility] [address] [place] [address] 11/15/2021 Laboratory Laboratory Processing [facility] Mobile Home Draw [address] [place] [address] 11/29/2021 Laboratory Laboratory Processing [facility] Mobile Home Draw [address] [place] [address] 12/13/2021 Laboratory Laboratory Processing [facility] Mobile Home Draw [address] [place] [address] 12/22/2021 Office Visit Endocrinology Alberta Duque PA-C [address] [place], [place] [id number] 12/23/2021 Office Visit Gastroenterology Lyssa Stout CRNP [address] [place] [address] 12/27/2021 Laboratory Laboratory Processing [facility] Mobile Home Draw [address] [place] [address] 01/04/2022 Office Visit Hematology Oncology Tono Sanchez MD [address] [place] [address] 01/10/2022 Laboratory Laboratory Processing [facility] Mobile Home Draw [address] [place] [address] 01/24/2022 Laboratory Laboratory Processing [facility], [facility] Mobile Home Draw [address] [place] [address] 02/07/2022 Laboratory Laboratory Processing [facility] Mobile Home Draw [address] [place] [address] 02/21/2022 Laboratory Laboratory Processing [facility] Mobile Home Draw [address] [place] [address] 03/07/2022 Laboratory Laboratory Processing [facility], [facility] Mobile Home Draw [address] [place] [address] 03/24/2022 Office Visit Pulmonary Reynaldo Marquez MD [address] [place] [phone] 06/24/2022 Office Visit Sleep Disorders Love Francisco DO [address] [place] [address] Scheduled Procedures Name Priority Associated Diagnoses Date/Ti [...] of this encounter Implants Implanted Type Area Supervising Film Or Videotape Editor Device Identifier Shelf Expiration Date Model / Serial / Lot Microtech Sure Clip Implanted:Qty: 2 on 06/03/2020 by Janis Hatch DO at OR [facility] Clip N/A: Colon 04/21/2022 ROCC-F-26-2 35-C-R / / [id number] documented as of this encounter Advance Directives Documents on File Type Date Recorded Patient Help Desk Specialist 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 WILL AND HEALTH CARE POA Power of Buffet Server 04/29/2021 12:00 AM TOM R OF BINDER CUTTER HAND HEALTH CARE POA Advanced Directive 04/01/2021 1:14 [...] Bustos Spouse Emergency Contact Care Teams Nurse School Relationship Specialty Start Date End Date Vanita Dunn MD [address] [place] [place] [address] PCP - General Family Medicine 03/16/21 documented as of this encounter
--- OUTSIDE RECORDS SUMMARY | 2023-05-10 19:34 | External Medical Summary | Summary of Care ---
Author Name Unknown Organization [facility] Address [place] [address] Care Team Providers Care Manager Hospitality Name Role Phone Vanita Dunn MD Primary Care Provid er Reason for Visit * Reason Onset Date Comments [facility]: Maintenance 10/01/2021 Encounter Details Date Type Department Care Team Description 10/01/2021 Telephone [facility], [facility] [address] [facility] [place] [address] [facility], Nurse [facility] [address] [facility] [place] [address] [facility]: Maintenance Allergies Active Allergy [...] 120 Vial 11 10/02/2019 Active nystatin (NYSTOP) 389158 UNIT/GM powder Apply topically to affected area [...] of Breath, Informant: Pharmacy, Reported on 02/04/2021 DexOmise G6 Tubing Mill Operator Device Use as directed. To [...] Strip 3 10/29/2020 Active OneTouch Delica Plus [id number] TESTING once daily 100 Each 3 10/29/2020 [...] pain 01/24/2012 01/17/2017 Genetic Sleep Disorder Research Other*[id number] 05/13/2011 04/07/2016 Obstructive sleep apnea 01/18/2011 12/27/19 [...] advance, I appreciate it. Carlos Khoury DO [facility] Stunt Person - [facility] 10/01/2021 * Telephone Encounter - Michelle Vyas RN - 10/01/2021 8:53 AM EST [facility] manager nursing home Acute Call Date: 10/01/2021 Time: 8:53 AM Name: Shaina Glover Juli : 1955 Caller: Shaina Bustos Relationship to Self Chief Complaint Patient presents with [facility]: Maintenance HPI: Shaina Bustos is a 66 year old female that is calling [facility] Intake to report that she [...] Type Specialty Care Team Description 10/01/2021 [facility]icine [facility] Joselin Dawson, ZAK [address] [facility] [place] [address] Kaylee Barakat, Community Health Mortgage Closing Clerk [address] [place] [address] 10/02/2021 Scheduled Telephone [facility], Nurse [address] [place] [address] 10/03/2021 Scheduled Telephone [facility], Nurse [address] [place] [address] 10/04/2021 Laboratory Laboratory Processing [facility] Mobile Home Draw [address] [place] [address] 10/04/2021 Home Visit [facility] July Poe RN 132 [place] [address] 10/06/2021 Telemedicine [facility] Joselin Dawson CRNP [address] [facility] [address] Kaylee Barakat, Community Health Mortgage Closing Clerk [address] [place] [address] 10/13/2021 Telemedicine [facility] Joselin Dawson CRNP [address] [address] Kaylee Barakat, Community Health Mortgage Closing Clerk [address] [place] [address] 10/18/2021 Laboratory Laboratory Processing [facility] Mobile Home Draw [address] [place] [address] 10/19/2021 Appointment Radiology 10/19/2021 Appointment Radiology 10/19/2021 Appointment Radiology 10/20/2021 Office Visit Family Medicine Vanita Dunn MD [address] [place] [address] 10/20/2021 Immunization/Injection Hematology Oncolog y Nurse, Med [address] [facility] [place] [address] 10/22/2021 Office Visit Sleep Disorders Love Francisco DO [address] [place] [address] 10/29/2021 Office Visit Cardiology Quyen Canseco CRNP [address] [place] [address] 11/01/2021 Laboratory Laboratory Processing [facility] Mobile Home Draw [address] [place] [address] 11/10/2021 Office Visit Pharmacy [facility] [address] [place] [address] 11/15/2021 Laboratory Laboratory Processing [facility] Mobile Home Draw [address] [place] [address] 11/29/2021 Laboratory Laboratory Processing [facility] Mobile Home Draw [address] [place] [address] 12/13/2021 Laboratory Laboratory Processing [facility] Mobile Home Draw [address] [place] [address] 12/22/2021 Office Visit Endocrinology Alberta Duque PA-C [address] [place], [place] [address] 12/23/2021 Office Visit Gastroenterology Lyssa Stout CRNP [address] [address] 12/27/2021 Laboratory Laboratory Processing [facility] Mobile Home Draw [address] [place] [address] 01/04/2022 Office Visit Hematology Oncology Tono Sanchez MD [address] [place] [address] 01/10/2022 Laboratory Laboratory Processing [facility] Mobile Home Draw [address] [place] [address] 01/24/2022 Laboratory Laboratory Processing [facility] Mobile Home Draw [address] [place] [address] 02/07/2022 Laboratory Laboratory Processing [facility] Mobile Home Draw [address] [place] [address] 02/21/2022 Laboratory Laboratory Processing [facility] Mobile Home Draw [address] [place] [address] 03/07/2022 Laboratory Laboratory Processing [facility] Mobile Home Draw [address] [place] [address] 03/24/2022 Office Visit Pulmonary Reynaldo Marquez MD [address] [place] [phone] 06/24/2022 Office Visit Sleep Disorders Love Francisco DO [address] [address] Scheduled Procedures Name Priority Associated Diagnoses Date/Ti [...] of this encounter Implants Implanted Type Area Child Care Centre Manager Device Identifier Shelf Expiration Date Model / Serial / Lot Microtech Sure Clip Implanted:Qty: 2 on 06/03/2020 by Janis Hatch DO at OR [facility] Clip N/A: Colon 04/21/2022 ROCC-F-26-2 35-C-R / / [id number] documented as of this encounter Advance Directives Documents on File Type Date Recorded Patient Regional Vice President Surgical Sales 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 WILL AND HEALTH CARE POA Power of Chemistry Instructor 04/29/2021 12:00 AM TOM R OF DESKTOP ANALYST HEALTH CARE POA Advanced Directive 04/01/2021 [...] Bustos Spouse Emergency Contact Care Teams Manager Hospitality Relationship Specialty Start Date End Date Vanita Dunn MD [address] [place] [facility] [place] [address] PCP - General Family Medicine 03/16/21 documented as of this encounter
--- OUTSIDE RECORDS SUMMARY | 2023-05-10 19:35 | External Medical Summary | Summary of Care ---
Author Name Unknown Organization [place] [address] Care Team Providers Care Toe Sewer Name Role Phone Vanita Dunn MD Primary Care Provid er Reason for Visit * Reason Comments Outpatient Testing Encounter Details Date Type Department Care Team Description 09/30/2021 Laboratory Outpatient Laboratory, [facility] [address] [place] [address] [facility], Lab B1a [address] [place], [place] [id number] Esophageal varices without bleeding, unspecified esophageal varices type (HCC); Iron deficiency anemia, unspecified iron deficiency anemia type Allergies Active Allergy Reactions Severity Noted [...] 120 Vial 11 10/02/2019 Active nystatin (NYSTOP) 515130 UNIT/GM powder Apply topically to affected area [...] Informant: Pharmacy, Reported on 02/04/2021 Dexcom G6 Clinical Data Analyst Device Use as directed. To test [...] Strip 3 10/29/2020 Active OneTouch Delica Plus [id number] TESTING once daily 100 Each 3 10/29/2020 [...] Foods Pharmacy Protocol Chronic diastolic (congestive) heart jayime lure 09/13/2021 Portal hypertensive gastropathy 03/16/20 21 [...] pain 01/24/2012 01/17/2017 Genetic Sleep Disorder Research Other*[id number] 05/13/2011 04/07/2016 Obstructive sleep apnea 01/18/2011 12/27/19 [...] Specialty Care Team Description 09/30/2021 Pharmacy Pharmacy [facility] [address] [place] [address] Type 2 diabetes mellitus with hemoglobin A1c goal of less than 7.0% ([facility])* 10/01/2021 Telemedicine [facility] Joselin Dawson CRNP [address] [place] [address] Kaylee Barakat, Community Health Glost Kiln Placer [address] [place] [address] 10/04/2021 Laboratory Laboratory Processing [facility] Mobile Home Draw [address] [place] [address] 10/04/2021 Home Visit [facility], [facility] [address] 10/06/2021 Telemedicine [facility] Joselin Dawson CRNP 132 [facility] [place] [address] Kaylee Barakat, Community Health Glost Kiln Placer [address] [place] [address] 10/13/2021 Telemedicine [facility] Joselin Dawson CRNP 132 [facility] [place] [address] Kaylee Barakat, [facility], [facility] Health Glost Kiln Placer [address] [place] [address] 10/18/2021 Laboratory Laboratory Processing [facility] Mobile Home Draw [address] [place] [address] 10/19/2021 Appointment Radiology 10/19/2021 Appointment Radiology 10/19/2021 Appointment Radiology 10/20/2021 Office Visit Family Medicine Vanita Dunn MD [address] [place] [address] 10/20/2021 Immunization/Inject ion Hematology Oncology Nurse, Med 4 [address] [place] [address] 10/22/2021 Office Visit Sleep Disorders Love Francisco DO [facility] [place] [address] 10/29/2021 Office Visit Cardiology Quyen Canseco CRNP [address] [facility] [place] [address] 11/01/2021 Laboratory Laboratory Processing [facility] Mobile Home Draw [address] [place] [address] 11/10/2021 Office Visit [address] [address] 11/15/2021 Laboratory Laboratory Processing [facility] Mobile Home Draw [address] [place] [address] 11/29/2021 Laboratory Laboratory Processing [facility] Mobile Home Draw [address] [place] [address] 12/13/2021 Laboratory Laboratory Processing [facility] Mobile Home Draw [address] [place] [address] 12/22/2021 Office Visit Endocrinology Alberta Duque PA-C [address] [place] [address] 12/23/2021 Office Visit Gastroenterology Lyssa Stout CRNP [address] [place] [address] 12/27/2021 Laboratory Laboratory Processing [facility] Mobile Home Draw [address] [place] [address] 01/04/2022 Office Visit Hematology Oncology Tono Sanchez MD 200 [place] [address] 01/10/2022 Laboratory Laboratory Processing [facility] Mobile Home Draw [address] [place] [address] 01/24/2022 Laboratory Laboratory Processing [facility] Mobile Home Draw [address] [place] [address] 02/07/2022 Laboratory Laboratory Processing [facility] Mobile Home Draw [address] [place] [address] 02/21/2022 Laboratory Laboratory Processing [facility] Mobile Home Draw [address] [place] [address] 03/07/2022 Laboratory Laboratory Processing [facility] Mobile Home Draw [address] [place] [address] 03/24/2022 Office Visit Pulmonary Reynaldo Marquez MD [address] [place] [id number] 06/24/2022 Office Visit Sleep Disorders Love Francisco, DO [address] [place] [address] Scheduled Procedures Name Priority Associated Diagnoses Date/Ti [...] this encounter Implants Implanted Type Area Music Promoter Device Identifier Shelf Expiration Date Model / Serial / Lot Microtech Sure Clip Implanted:Qty: 2 on 06/03/2020 by Janis Hatch DO at OR [facility] Clip N/A: Colon 04/21/2022 [facility]-F-26-2 35-C-R / / [id number] documented as of this encounter Visit Diagnoses Diagnosis Type 2 diabetes mellitus with hemoglobin A1c goal of less than 7.0% (HCC)- Primary Esophageal varices without bleeding, unspecified esophageal varices type (HCC) Iron deficiency anemia, unspecified iron deficiency anemia type documented in this encounter Advance Directives Documents on File Type Date Recorded Patient Elementary Reading Tutor 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 WILL AND HEALTH CARE POA Power of Lining Parts Sewer 04/29/2021 12:00 AM TOM R OF TRAFFIC INCIDENT MANAGEMENT MANAGER HEALTH CARE POA Advanced Directive 04/01/2021 [...] Syed Bustos Spouse Emergency Contact Care Teams Toe Sewer Relationship Specialty Start Date End Date Vanita Dunn MD [address] [place] [id number] PCP - General Family Medicine 03/16/21 documented as of this encounter
--- OUTSIDE RECORDS SUMMARY | 2023-05-10 19:35 | External Medical Summary | Summary of Care ---
Author Name Unknown Organization [place] [address] Care Team Providers Care Barrel Rib Matting Machine Operator Name Role Phone Vanita Dunn MD Primary Care Provid er Reason for Visit * Reason Comments Outpatient Testing Encounter Details Date Type Department Care Team Description 09/30/2021 Laboratory Outpatient Laboratory, [place] [address] [place] [address] [place], Lab B1a [address] [place], [place] [id number] Esophageal varices without bleeding, unspecified esophageal varices [...] 120 Vial 11 10/02/2019 Active nystatin (NYSTOP) 277638 UNIT/GM powder Apply topically to affected area [...] Informant: Pharmacy, Reported on 02/04/2021 Dexcom G6 Track Supervisor Device Use as directed. To test [...] Strip 3 10/29/2020 Active OneTouch Delica Plus [id number] TESTING once daily 100 Each 3 10/29/2020 [...] pain 01/24/2012 01/17/2017 Genetic Sleep Disorder Research Other*[id number] 05/13/2011 04/07/2016 Obstructive sleep apnea 01/18/2011 12/27/19 [...] Specialty Care Team Description 09/30/2021 Pharmacy Pharmacy [facility] [address] [place] [address] Type 2 diabetes mellitus with hemoglobin A1c goal of less than 7.0% ([facility])* 10/01/2021 Telemedicine [facility] Joselin Dawson CRNP [address] [place] [address] Kaylee Barakat, Community Health Math Teacher [address] [place] [address] 10/04/2021 Laboratory Laboratory Processing [facility] Mobile Home Draw [address] [place] [address] 10/04/2021 Home Visit [facility] July Poe, RN [facility] [address] 10/06/2021 Telemedicine [facility] Joselin Dawson CRNP 132 [facility] [place] [address] Kaylee Barakat, Community Health Math Teacher [address] [place] [address] 10/13/2021 Telemedicine [facility] Joselin Dawson CRNP 132 [facility] [place] [address] Kaylee Barakat, [facility] Health Math Teacher [address] [place] [address] 10/18/2021 Laboratory Laboratory Processing [facility], [facility] Mobile Home Draw [address] [place] [address] 10/19/2021 Appointment Radiology 10/19/2021 Appointment Radiology 10/19/2021 Appointment Radiology 10/20/2021 Office Visit Family Medicine Vanita Dunn MD [address] [place] [address] 10/20/2021 Immunization/Inject ion Hematology Oncology Nurse, Med 4 200 [facility] [place] [address] 10/22/2021 Office Visit Sleep Disorders Love Francisco DO [facility] [place] [address] 10/29/2021 Office Visit Cardiology Quyen Canseco CRNP 132 [facility] [place] [address] 11/01/2021 Laboratory Laboratory Processing [facility] Mobile Home Draw [address] [place] [address] 11/10/2021 Office Visit [address] [address] 11/15/2021 Laboratory Laboratory Processing [facility] Draw [address] [place] [address] 11/29/2021 Laboratory Laboratory Processing [facility] Draw [address] [place] [address] 12/13/2021 Laboratory Laboratory Processing [facility] Mobile [facility] Draw [address] [place] [address] 12/22/2021 Office Visit Endocrinology Alberta Duque PA-C [address] [place] [address] 12/23/2021 Office Visit Gastroenterology Lyssa Stout CRNP [address] [place] [address] 12/27/2021 Laboratory Laboratory Processing [facility] Draw [address] [place] [address] 01/04/2022 Office Visit Hematology Oncology Tono Sanchez MD [address] [place] [address] 01/10/2022 Laboratory Laboratory Processing [facility] Mobile [facility] Draw [address] [place] [address] 01/24/2022 Laboratory Laboratory Processing [facility] Draw [address] [place] [address] 02/07/2022 Laboratory Laboratory Processing [facility], [facility] Mobile Home Draw [address] [place] [address] 02/21/2022 Laboratory Laboratory Processing [facility], [facility] Mobile Home Draw [address] [place] [address] 03/07/2022 Laboratory Laboratory Processing [facility], [facility] Mobile Home Draw [address] [place] [address] 03/24/2022 Office Visit Pulmonary Reynaldo Marquez MD [address] [place] [id number] 06/24/2022 Office Visit Sleep Disorders Love Francisco, DO [address] [place] [address] Scheduled Procedures Name Priority Associated Diagnoses Date/Ti [...] of this encounter Implants Implanted Type Area Stitch Rubber Device Identifier Shelf Expiration Date Model / Serial / Lot Microtech Sure Clip Implanted:Qty: 2 on 06/03/2020 by Janis Hatch DO at OR [facility] Clip N/A: Colon 04/21/2022 [facility]-F-26-2 35-C-R / / [id number] documented as of this encounter Visit Diagnoses Diagnosis Type 2 diabetes mellitus with hemoglobin A1c goal of less than 7.0% (HCC)- Primary Esophageal varices without bleeding, unspecified esophageal varices type (HCC) Iron deficiency anemia, unspecified iron deficiency anemia type documented in this encounter Advance Directives Documents on File Type Date Recorded Patient Dispatch Manager 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 WILL AND HEALTH CARE POA Power of Raymond Mill Operator 04/29/2021 12:00 AM TOM R OF ADVERTISING ASSOCIATE HEALTH CARE POA Advanced Directive 04/01/2021 [...] Bustos Spouse Emergency Contact Care Teams Barrel Rib Matting Machine Operator Relationship Specialty Start Date End Date Vanita Dunn MD [address] [place] [id number] PCP - General Family Medicine 03/16/21 documented as of this encounter
--- OUTSIDE RECORDS SUMMARY | 2023-05-10 19:36 | External Medical Summary | Summary of Care ---
Author Name Unknown Organization [place] [address] Care Team Providers Care Highway Worker Name Role Phone Vanita Dunn MD Primary Care Provid er Reason for Visit * Reason Comments Outpatient Testing Encounter Details Date Type Department Care Team Description 09/30/2021 Laboratory Outpatient Laboratory, [place] [address] [place] [address] [place], Lab B1a [address] [place], [place] [id number] Esophageal varices without bleeding, unspecified esophageal varices [...] 120 Vial 11 10/02/2019 Active nystatin (NYSTOP) 628392 UNIT/GM powder Apply topically to affected area [...] Pharmacy, Reported on 02/04/2021 Dexcom G6 Patient Case Coordinator Device Use as directed. To test [...] Strip 3 10/29/2020 Active OneTouch Delica Plus [id number] TESTING once daily 100 Each 3 10/29/2020 [...] pain 01/24/2012 01/17/2017 Genetic Sleep Disorder Research Other*[id number] 05/13/2011 04/07/2016 Obstructive sleep apnea 01/18/2011 12/27/19 [...] Specialty Care Team Description 09/30/2021 Pharmacy Pharmacy [facility] [address] [place] [address] Type 2 diabetes mellitus with hemoglobin A1c goal of less than 7.0% ([facility])* 10/01/2021 Telemedicine [facility] Joselin Dawson CRNP [address] [place] [address] Kaylee Barakat, Community Health Diesel Engine Mechanic Apprentice [address] [place] [address] 10/04/2021 Laboratory Laboratory Processing [facility] Mobile Home Draw [address] [place] [address] 10/04/2021 Home Visit [facility] July Poe, RN [address] [facility] [address] 10/06/2021 Telemedicine [facility] Joselin Dawson CRNP 132 [facility] [place] [address] Kaylee Barakat, Community Health Diesel Engine Mechanic Apprentice [address] [place] [address] 10/13/2021 Telemedicine [facility] Joselin Dawson CRNP [address] [facility] [place] [address] Kaylee Barakat, [facility] Health Diesel Engine Mechanic Apprentice [address] [place] [address] 10/18/2021 Laboratory Laboratory Processing [facility] Mobile Home Draw [address] [place] [address] 10/19/2021 Appointment Radiology 10/19/2021 Appointment Radiology 10/19/2021 Appointment Radiology 10/20/2021 Office Visit Family Medicine Vanita Dunn MD [address] [place] [address] 10/20/2021 Immunization/Inject ion Hematology Oncology Nurse, Med 4 200 [place] [address] 10/22/2021 Office Visit [facility] Disorders [facility] Francisco DO [facility] [place] [address] 10/29/2021 Office Visit Cardiology Quyen Canseco CRNP 132 [facility] [place] [address] 11/01/2021 Laboratory Laboratory Processing [facility] Mobile [facility] Draw [address] [place] [address] 11/10/2021 Office Visit [address] [address] 11/15/2021 Laboratory Laboratory Processing [facility] Draw [address] [place] [address] 11/29/2021 Laboratory Laboratory Processing [facility] Draw [address] [place] [address] 12/13/2021 Laboratory Laboratory Processing [facility] Draw [address] [place] [address] 12/22/2021 Office Visit Endocrinology Alberta Duque PA-C [address] [place] [address] 12/23/2021 Office Visit Gastroenterology Lyssa Stout CRNP [address] [place] [address] 12/27/2021 Laboratory Laboratory Processing [facility] Mobile [facility] Draw [address] [place] [address] 01/04/2022 Office Visit Hematology Oncology Tono Sanchez MD 200 [place] [address] 01/10/2022 Laboratory Laboratory Processing [facility] Mobile [facility] Draw [address] [place] [address] 01/24/2022 Laboratory Laboratory Processing [facility] Draw [address] [place] [address] 02/07/2022 Laboratory Laboratory Processing [facility] Mobile Home Draw [address] [place] [address] 02/21/2022 Laboratory Laboratory Processing [facility] Mobile Home Draw [address] [place] [address] 03/07/2022 Laboratory Laboratory Processing [facility] Mobile Home Draw [address] [place] [address] 03/24/2022 Office Visit Pulmonary Reynaldo Marquez MD [address] [place] [id number] 06/24/2022 Office Visit Sleep Disorders Love Francisco, DO [address] [place] [address] Scheduled Procedures Name Priority Associated Diagnoses Date/Ti [...] of this encounter Implants Implanted Type Area Geophysics Teacher Device Identifier Shelf Expiration Date Model / Serial / Lot Microtech Sure Clip Implanted:Qty: 2 on 06/03/2020 by Janis Hatch DO at OR [facility] Clip N/A: Colon 04/21/2022 [facility]-F-26-2 35-C-R / / [id number] documented as of this encounter Visit Diagnoses Diagnosis Type 2 diabetes mellitus with hemoglobin A1c goal of less than 7.0% (HCC)- Primary Esophageal varices without bleeding, unspecified esophageal varices type (HCC) Iron deficiency anemia, unspecified iron deficiency anemia type documented in this encounter Advance Directives Documents on File Type Date Recorded Patient Licensed Vocational Nurse 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 WILL AND HEALTH CARE POA Power of Satellite Installation Technician 04/29/2021 12:00 AM TOM R OF [employer] [facility] C[facility] POA Advanced Directive 04/01/2021 1:14 [...] Syed Bustos Spouse Emergency Contact Care Teams Highway Worker Relationship Specialty Start Date End Date Vanita Dunn MD [address] [place] [id number] PCP - General Family Medicine 03/16/21 documented as of this encounter
--- OUTSIDE RECORDS SUMMARY | 2023-05-10 19:36 | External Medical Summary | Summary of Care ---
Author Name Unknown Organization [place] [address] Care Team Providers Care Beauty Culture Teacher Name Role Phone Vanita Dunn MD Primary Care Provid er Reason for Visit * Reason Comments Dosage Adjustment Via Phone (anticoag Cl inic) Diabetes Follow-Up Encounter Details Date Type Department Care Team Description 09/30/2021 Pharmacy Pharmacy, [place] [address] [place] [address] [facility] [address] [place] [address] Type 2 diabetes mellitus with hemoglobin A1c goal of less than 7.0% ([facility])* Allergies Active Allergy Reactions Severity Noted Date [...] 120 Vial 11 10/02/2019 Active nystatin (NYSTOP) 135558 UNIT/GM powder Apply topically to affected area [...] Informant: Pharmacy, Reported on 02/04/2021 Dexcom G6 Crystal Calibrator Device Use as directed. To test blood [...] Strip 3 10/29/2020 Active OneTouch Delica Plus [id number] TESTING once daily 100 Each 3 10/29/2020 [...] pain 01/24/2012 01/17/2017 Genetic Sleep Disorder Research Other*[id number] 05/13/2011 04/07/2016 Obstructive sleep apnea 01/18/2011 12/27/19 [...] of this encounter Progress Notes * Indira Hudson RPh - 09/30/2021 4:13 PM EST Received message that order is being fulfilled by [facility]. Indira Hudson RPh, Pharm D, BCACP Clinical Pharmacist 09/30/21 4:13 PM * Indira Hudson RPh - 09/30/2021 2:26 PM EST Received the following email from [employer] regarding patient's Dexcom sensor order. "Good morning Indira, Thank you for your email. I was able to pull up the patients account and when we verified the patients insurance plan it came back as out of network with [employer]. We were able to speak to the patients on 09/17 and 1/17 and informed him of this. PT CALLED IN TO REORDER, INFORMED THAT HIS INSURANCE IS OON WITH [employer] AND THE ORDER WOULD HAVE TO BEFULL PHELAN, PT GOT UPSET, THEN SHE PUT HER ON THE LINE, HE GOT UPSET TOO AND HE SAID THAT HE WILL CALL HIS DOCTOR TO FIND OUT WHAT IS HAPPENING, THEN HU 09/27/2021 10:27 (3 days Ago) [id number] Have a great rest of your day! Thank you very much, Cassie KayHernández) DSBU Perinatal Coordinator" Patient Phone Numbers Placed referral for Dexcom sensor through [facility] portal to change to in-network supplier if able. Called and spoke with patient's [id number] who helps her with her medications. Discussed above. She will relay the message. Indira Hudson [facility], Pharm D, BCACP Clinical Pharmacist 09/30/21 2:27 PM documented in this encounter Plan of Treatment Upcoming Encounters Date Type Specialty Care Team Description 10/01/2021 Telemedicine [facility] Joselin Dawson CRNP [address] [place] [address] Kaylee Barakat, Community Health Perinatal Coordinator [address] [place] [address] 10/04/2021 Laboratory Laboratory Processing [facility], [facility] Mobile Home Draw [address] [place] [address] 10/04/2021 Home Visit [facility] July Poe, RN [address] [place] [address] 10/06/2021 Telemedicine [facility] Joselin Dawson CRNP [address] [place] [address] Kaylee Barakat, Community Health Perinatal Coordinator [address] [place] [address] 10/13/2021 Telemedicine [facility] Joselin Dawson CRNP [address] [place] [address] Kaylee Barakat, Community Health Perinatal Coordinator [address] [place] [address] 10/18/2021 Laboratory Laboratory Processing [facility], [facility] Mobile Home Draw [address] [place] [address] 10/19/2021 Appointment Radiology 10/19/2021 Appointment Radiology 10/19/2021 Appointment Radiology 10/20/2021 Office Visit Family Medicine Vanita Dunn MD [address] [place] [address] 10/20/2021 Immunization/Injection Hematology Oncolog y Nurse, Med [address] [place] [address] 10/22/2021 Office Visit Sleep Disorders Love Francisco DO 132 [facility] [address] 10/29/2021 Office Visit Cardiology Quyen Canseco CRNP 132 [place] [address] 11/01/2021 Laboratory Laboratory Processing [facility], [facility] Mobile Home Draw [address] [place] [address] 11/10/2021 Office Visit Pharmacy [facility] [address] [place] [address] 11/15/2021 Laboratory Laboratory Processing [facility] Mobile Home Draw [address] [place] [address] 11/29/2021 Laboratory Laboratory Processing [facility] Mobile Home Draw [address] [place] [address] 12/13/2021 Laboratory Laboratory Processing [facility] Mobile Home Draw [address] [place] [address] 12/22/2021 Office Visit Endocrinology Alberta Duque PA-C [address] [place] 12/23/2021 Office Visit Gastroenterology Lyssa Stout CRNP [address] [place] [address] 12/27/2021 Laboratory Laboratory Processing [facility] Mobile Home Draw [address] [place] [address] 01/04/2022 Office Visit Hematology Oncology Tono Sanchez MD [address] [place] [address] 01/10/2022 Laboratory Laboratory Processing [facility] Mobile Home Draw [address] [place] [address] 01/24/2022 Laboratory Laboratory Processing [facility] Mobile Home Draw [address] [place] [address] 02/07/2022 Laboratory Laboratory Processing [facility] Mobile Home Draw [address] [place] [address] 02/21/2022 Laboratory Laboratory Processing [facility], [facility] Mobile Home Draw [address] [place] [address] 03/07/2022 Laboratory Laboratory Processing [facility], [facility] Mobile Home Draw [address] [place] [address] 03/24/2022 Office Visit Pulmonary Reynaldo Marquez MD [address] [place] [address] 06/24/2022 Office Visit Sleep Disorders Love Francisco, 132 [facility] [place] [address] Scheduled Procedures Name Priority Associated Diagnoses Date/Ti [...] this encounter Implants Implanted Type Area Superintendent Construction Device Identifier Shelf Expiration Date Model / Serial / Lot Microtech Sure Clip Implanted:Qty: 2 on 06/03/2020 by Janis Hatch DO at OR [facility] Clip N/A: Colon 04/21/2022 [facility]-F-26-2 35-C-R / / [id number] documented as of this encounter Visit Diagnoses Diagnosis Type 2 diabetes mellitus with hemoglobin A1c goal of less than 7.0% (HCC)- Primary documented in this encounter Advance Directives Documents on File Type Date Recorded Patient Rehabilitation Counsellor 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 WILL AND HEALTH CARE POA Power of Dominatrix 04/29/2021 12:00 AM [facility] C[facility] POA Advanced Directive 04/01/2021 1:14 [...] File Name Relationship Healthcare Agent [facility] Communication Syed Bustos Spouse Emergency Contact Care Teams Beauty Culture Teacher Relationship Specialty Start Date End Date Vanita Dunn MD [address] [place] [address] PCP - General Family Medicine 03/16/21 documented as of this encounter
--- OUTSIDE RECORDS SUMMARY | 2023-05-10 19:37 | External Medical Summary | Summary of Care ---
Author Name Unknown Organization [place] [address] Care Team Providers Care Manager Of Compliance Name Role Phone Vanita Dunn MD Primary Care Provid er Reason for Visit * Reason Comments Dosage Adjustment Via Phone (anticoag Cl inic) Diabetes Follow-Up Encounter Details Date Type Department Care Team Description 09/30/2021 Pharmacy Pharmacy, [place] [address] [place] [address] [facility] [address] [place] [address] Type 2 diabetes mellitus with hemoglobin A1c goal of less than 7.0% (FORMERLY [facility])* Allergies Active Allergy Reactions Severity Noted Date [...] 120 Vial 11 10/02/2019 Active nystatin (NYSTOP) 827759 UNIT/GM powder Apply topically to affected area [...] Pharmacy, Reported on 02/04/2021 Dexcom G6 High School Social Studies Tutor Device Use as directed. To test blood [...] Strip 3 10/29/2020 Active OneTouch Delica Plus [id number] TESTING once daily 100 Each 3 10/29/2020 [...] pain 01/24/2012 01/17/2017 Genetic Sleep Disorder Research Other*[id number] 05/13/2011 04/07/2016 Obstructive sleep apnea 01/18/2011 12/27/19 [...] this encounter Progress Notes * Indira Hudson, [facility] - 09/30/2021 2:26 PM EST Received the following email from [facility] regarding patient's Dexcom sensor order. "Good morning Indira, Thank you for your email. I was able to pull up the patients account and when we verified the patients insurance plan it came back as out of network with [employer]. We were able to speak to the patients on 09/17 and 09/27 and informed him of this. PT CALLED IN TO REORDER, INFORMED THAT HIS INSURANCE IS OON WITH [employer] AND THE ORDER WOULD HAVE TO BEFULL PHELAN, PT GOT UPSET, THEN SHE PUT HER ON THE LINE, HE GOT UPSET TOO AND HE SAID THAT HE WILL CALL HIS DOCTOR TO FIND OUT WHAT IS HAPPENING, THEN 09/27/2021 10:27 (3 days Ago) [id number] Have a great rest of your day! Thank you very much, Cassie Park) [facility] Diet Therapist" Patient Phone Numbers Placed referral for Dexcom sensor through [employer] portal to change to in-network supplier if able. Called and spoke with patient's [id number] who helps her with her medications. Discussed above. She will relay the message. Indira Hudson [facility], Pharm D, BCACP Clinical Pharmacist 09/30/21 2:27 PM documented in this encounter Plan of Treatment Upcoming Encounters Date Type Specialty Care Team Description 09/30/2021 Hospital Encounter Radiology Arrive d 10/01/2021 Telemedicine [facility] Joselin Dawson CRNP [address] [facility] [place] [address] Kaylee Barakat, [facility] Diet Therapist [address] [place] [address] 10/04/2021 Laboratory Laboratory Processing [facility], [facility] Mobile Home Draw [address] [place] [address] 10/04/2021 Home Visit [facility] July Poe, RN 132 [facility] [place] [address] 10/06/2021 Telemedicine [facility] Joselin Dawson CRNP [address] [facility] [place] [address] Kaylee Barakat, Community [facility] Diet Therapist [address] [place] [address] 10/13/2021 Telemedicine [facility] Joselin Dawson CRNP 132 [facility] [place] [address] Kaylee Barakat, Community [facility] Diet Therapist [address] [place] [address] 10/18/2021 Laboratory Laboratory Processing [facility] Mobile Home Draw [address] [place] [address] 10/20/2021 Office Visit Family Medicine Vanita Dunn MD [address] [place] [address] 10/20/2021 Immunization/Injection Hematology Oncolog y Nurse, Med [address] [place] [address] 10/22/2021 Office Visit Sleep Disorders Love Francisco DO [address] [place] [address] 10/29/2021 Office Visit Cardiology Quyen Canseco CRNP [address] [place] [address] 11/01/2021 Laboratory Laboratory Processing [facility] Mobile Home Draw [address] [place] [address] 11/02/2021 Imaging Radiology 11/10/2021 Office Visit Pharmacy [facility] [address] [place] [address] 11/15/2021 Laboratory Laboratory Processing [facility] Mobile Home Draw [address] [place] [address] 11/29/2021 Laboratory Laboratory Processing [facility] Mobile Home Draw [address] [place] [address] 12/13/2021 Laboratory Laboratory Processing [facility] Mobile Home Draw [address] [place] [address] 12/22/2021 Office Visit Endocrinology Alberta Duque PA-C [address] [place] [address] 12/23/2021 Office Visit Gastroenterology Lyssa Stout CRNP [address] [place] [address] 12/27/2021 Laboratory Laboratory Processing [facility] Mobile Home Draw [address] [place] [address] 01/04/2022 Office Visit Hematology Oncology Tono Sanchez MD [address] [place] [address] 01/10/2022 Laboratory Laboratory Processing [facility] Mobile Home Draw [address] [place] [address] 01/24/2022 Laboratory Laboratory Processing [facility] Mobile Home Draw [address] [place] [address] 02/07/2022 Laboratory Laboratory Processing [facility] Mobile Home Draw [address] [place] [address] 02/21/2022 Laboratory Laboratory Processing [facility] Mobile Home Draw [address] [place] [address] 03/07/2022 Laboratory Laboratory Processing [facility] Mobile Home Draw [address] [place] [address] 03/24/2022 Office Visit Pulmonary Reynaldo Marquez MD [address] [place] [address] 06/24/2022 Office Visit Sleep Disorders Love Francisco, [address] [place] [address] Scheduled Procedures Name Priority Associated Diagnoses Date/Ti [...] of this encounter Implants Implanted Type Area Dispensing Audiologist Device Identifier Shelf Expiration Date Model / Serial / Lot Microtech Sure Clip Implanted:Qty: 2 on 06/03/2020 by Janis Hatch DO at OR [facility] Clip N/A: Colon 04/21/2022 [facility]-F-26-2 35-C-R / / [id number] documented as of this encounter Visit Diagnoses Diagnosis Post-menopausal bleeding Postmenopausal bleeding Type 2 diabetes mellitus with hemoglobin A1c goal of less than 7.0% (HCC)- Primary documented in this encounter Advance Directives Documents on File Type Date Recorded 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 POA Advanced Directive 04/01/2021 1:14 PM [...] File Name Relationship Healthcare Agent [facility] p Communication Syed Bustos Spouse Emergency Contact Care Teams Manager Of Compliance Relationship Specialty Start Date End Date Vanita Dunn MD [address] [place] [address] PCP - General Family Medicine 03/16/21 documented as of this encounter
--- OUTSIDE RECORDS SUMMARY | 2023-05-10 19:37 | External Medical Summary ---
Author Name Unknown Address Unknown Organization K01:[facility] - [address] [place] [address] Laboratory Report Ordering Provider Test Date Status LALITO OBRIEN 09/30/2021 16:14:35 Final Observation Date Value Abnormality Reference (Units ) Status WBC, Total 09/30/2021 16:14:35 6.47 4.00-10.80 (K/uL) Final RBC 09/30/2021 16:14:35 2.77 Below low normal 3.85-5.15 (M/uL) Final Hemoglobin 09/30/2021 16:14:35 7.9 Below low normal 12.0-15.3 (g/dL) Final HCT 09/30/2021 16:14:35 27.6 Below low normal 36.0-45.2 (%) Final MCV 09/30/2021 16:14:35 99.6 Above high normal 81.5-97.5 (fL) Final MCH 09/30/2021 16:14:35 28.5 27.0-34.0 (pg) Final MCHC 09/30/2021 16:14:35 28.6 Below low normal 32.0-36.0 (g/dL) Final RDW 09/30/2021 16:14:35 19.9 Above high normal 11.5-15.5 (%) Final MPV 09/30/2021 16:14:35 13.1 Above high normal 6.6-11.1 (fL) Final Nucleated erythrocytes/100 leukocytes [Ratio] in Blood by Automated count 09/30/2021 16:14:35 0 <=0 (/100 WBCs) Final Platelets 09/30/2021 16:14:35 117 Below low normal 140-400 (K/uL) Final Performing Location [facility] - [address] [place] [address]
--- OUTSIDE RECORDS SUMMARY | 2023-05-10 19:37 | External Medical Summary | Summary of Care ---
Author Name Unknown Organization [facility] Address [place] [address] Care Team Providers Care Gold Leaf Printer Name Role Phone Vanita Dunn MD Primary Care Provid er Reason for Visit * Reason Onset Date Comments [facility]: Maintenance 09/30/2021 Encounter Details Date Type Department Care Team Description 09/30/2021 Scheduled Telephone [facility], [facility] [address] [facility] [place] [address] Coordinator, [facility] [address] [facility] [place] [address] Allergies Active Allergy Reactions Severity Noted Date [...] 120 Vial 11 10/02/2019 Active nystatin (NYSTOP) 306498 UNIT/GM powder Apply topically to affected area [...] of Breath, Informant: Pharmacy, Reported on 02/04/2021 [employer] G6 Vp [employer]s Device Use as directed. To test blood [...] Strip 3 10/29/2020 Active OneTouch Delica Plus Lrfwsx58S TESTING once daily 100 Each 3 10/29/2020 [...] pain 01/24/2012 01/17/2017 Genetic Sleep Disorder Research Other*[id number] 05/13/2011 04/07/2016 Obstructive sleep apnea 01/18/2011 12/27/19 [...] Telephone Encounter - Michelle Vyas RN - 09/30/2021 2:11 PM EST Call to patient's home and spoke with Mariely (sister in law who shares the home). [employer] is still out at clinic. Mariely was able to take message about telemed health tomorrow. Explained how the telemed visii works. Also asked if knew where [employer]'s panfilo supplies came from. Mariely has a 800 number. Told her to reach out to them. She will call the number. Michelle Vyas. RN [facility] RN [phone] * Telephone Encounter - Michelle Vyas RN - 09/30/2021 1:24 PM EST Attempted to call patient to let her know about the telemed appointment tomorrow. No answer and unable to leave message. Patient was going out this am for US, chest xray and labs, I will call again later this afternoon. Michelle Vyas. RN [facility] RN [phone] documented in this encounter Plan of Treatment Upcoming Encounters Date Type Specialty Care Team Description 09/30/2021 Hospital Encounter Radiology 09/30/2021 Appointment Radiology 10/01/2021 Telemedicine [facility] Joselin Dawson CRNP [address] [place] [address] Kaylee Barakat, [facility] Health Train Gateman [address] [place] [address] 10/04/2021 Laboratory Laboratory Processing [facility] Mobile Home Draw [address] [place] [address] 10/04/2021 Home Visit [facility] July Poe RN [address] [place] [address] 10/06/2021 Telemedicine [facility] Joselin Dawson CRNP [address] [facility] [place], [place] [address] Kaylee Barakat, [facility] Health Train Gateman [address] [place] [address] 10/13/2021 Telemedicine [facility]elin [facility]NP [facility] [place] [address] Kaylee Barakat, Community [facility] Train Gateman [address] [place] [address] 10/18/2021 Laboratory Laboratory Processing [facility] Mobile Home Draw [address] [place] [address] 10/20/2021 Office Visit Family Medicine Vanita Dunn MD [address] [place] [address] 10/20/2021 Immunization/Injection Hematology Oncolog y Nurse, Med [address] [place] [address] 10/22/2021 Office Visit Sleep Disorders Love Francisco DO [address] [place] [address] 10/29/2021 Office Visit Cardiology Quyen Canseco CRNP [address] [place] [address] 11/01/2021 Laboratory Laboratory Processing [facility] Mobile Home Draw [address] [place] [address] 11/02/2021 Imaging Radiology 11/10/2021 Office Visit Pharmacy [facility] [address] [place] [address] 11/15/2021 Laboratory Laboratory Processing [facility] Mobile Home Draw [address] [place] [address] 11/29/2021 Laboratory Laboratory Processing [facility] Mobile Home Draw [address] [place] [address] 12/13/2021 Laboratory Laboratory Processing [facility] Mobile Home Draw [address] [place] [address] 12/22/2021 Office Visit Endocrinology Alberta Duque PA-C [address] [place] [address] 12/23/2021 Office Visit Gastroenterology Lyssa Stout CRNP [address] [place] [address] 12/27/2021 Laboratory Laboratory Processing [facility] Mobile Home Draw [address] [place] [address] 01/04/2022 Office Visit Hematology Oncology Tono Sanchez MD [address] [place] [address] 01/10/2022 Laboratory Laboratory Processing [facility] Mobile Home Draw [address] [place] [address] 01/24/2022 Laboratory Laboratory Processing [facility] Mobile Home Draw [address] [place] [address] 02/07/2022 Laboratory Laboratory Processing [facility] Mobile Home Draw [address] [place] [address] 02/21/2022 Laboratory Laboratory Processing [facility] Mobile Home Draw [address] [place] [address] 03/07/2022 Laboratory Laboratory Processing [facility] Mobile Home Draw [address] [place] [address] 03/24/2022 Office Visit Pulmonary Reynaldo Marquez MD [address] [place] [address] 06/24/2022 Office Visit Sleep Disorders Love Francisco DO [address] [place] [address] Scheduled Procedures Name Priority Associated Diagnoses Date/Ti [...] of this encounter Implants Implanted Type Area Environmental Engineer Device Identifier Shelf Expiration Date Model / Serial / Lot Microtech Sure Clip Implanted:Qty: 2 on 06/03/2020 by Janis Hatch DO at OR [facility] Clip N/A: Colon 04/21/2022 [facility]-F-26-2 35-C-R / / [id number] documented as of this encounter Advance Directives Documents on File Type Date Recorded 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
--- OUTSIDE RECORDS SUMMARY | 2023-05-10 19:37 | External Medical Summary | Summary of Care ---
Author Name Unknown Organization [facility] Address [place] [address] Care Team Providers Care Card Mounter Name Role Phone Vanita Dunn MD Primary Care Provid er Reason for Visit * Reason Onset Date Comments [facility]: Maintenance 09/30/2021 Encounter Details Date Type Department Care Team Description 09/30/2021 Scheduled Telephone [facility], [facility] [address] [facility] [place] [address] Coordinator, [facility] [address] [facility] [place] [address] Allergies Active Allergy Reactions Severity Noted Date [...] 120 Vial 11 10/02/2019 Active nystatin (NYSTOP) 622509 UNIT/GM powder Apply topically to affected area [...] of Breath, Informant: Pharmacy, Reported on 02/04/2021 [email or web address] G6 Supply Chain Design Manager Device Use as directed. To test [...] Strip 3 10/29/2020 Active OneTouch Delica Plus Bfrlxo30U TESTING once daily 100 Each 3 10/29/2020 [...] pain 01/24/2012 01/17/2017 Genetic Sleep Disorder Research Other*[id number] 05/13/2011 04/07/2016 Obstructive sleep apnea 01/18/2011 12/27/19 [...] again later this afternoon. Michelle Vyas. RN [facility] technical support intern [phone] documented in this encounter Plan of Treatment Upcoming Encounters Date Type Specialty Care Team Description 09/30/2021 Hospital Encounter Radiology 09/30/2021 Appointment Radiology 10/01/2021 Telemedicine [facility]elin Dawson CRNP [facility] [address] Kaylee Barakat, Community [facility] Transformer Builder [address] [place] [address] 10/04/2021 Laboratory Laboratory Processing [facility], [facility] Mobile Home Draw [address] [place] [address] 10/04/2021 Home Visit [facility] July Poe RN 132 [place] [address] 10/06/2021 Telemedicine [facility] Joselin Dawson CRNP [address] [place] [address] Kaylee Barakat, Community Health Transformer Builder [address] [place] [address] 10/13/2021 Telemedicine [facility] Joselin Dawson CRNP [address] [place] [address] Kaylee Barakat, Community Health Transformer Builder [place] [address] 10/18/2021 Laboratory Laboratory Processing [facility] Mobile Home Draw [address] [place] [address] 10/20/2021 Office Visit Family Medicine MonaVanita MD [address] [place] [address] 10/20/2021 Immunization/Injection Hematology Oncolog y Nurse, Med 4 [address] [place] [address] 10/22/2021 Office Visit Sleep Disorders Love Francisco DO [facility] [address] 10/29/2021 Office Visit Cardiology Quyen Canseco CRNP [address] [place] [address] 11/01/2021 Laboratory Laboratory Processing [facility] Mobile Home Draw [address] [place] [address] 11/02/2021 Imaging Radiology 11/10/2021 Office Visit [address] [address] 11/15/2021 Laboratory Laboratory Processing [facility] Mobile Home Draw [address] [place] [address] 11/29/2021 Laboratory Laboratory Processing [facility] Mobile Home Draw [address] [place] [address] 12/13/2021 Laboratory Laboratory Processing [facility], [facility] Mobile Home Draw [address] [place] [address] 12/22/2021 Office Visit Endocrinology Alberta Duque PA-C [address] [place] [address] 12/23/2021 Office Visit Gastroenterology Lyssa Stout CRNP [address] [place] [address] 12/27/2021 Laboratory Laboratory Processing [facility], [facility] Mobile Home Draw [address] [place] [address] 01/04/2022 Office Visit Hematology Oncology Tono Sanchez MD [address] [place] [address], [place] [address] 01/10/2022 Laboratory Laboratory Processing [facility], [facility] Mobile Home Draw [address] [place] [address] 01/24/2022 Laboratory Laboratory Processing [facility] Mobile Home Draw [address] [place] [address] 02/07/2022 Laboratory Laboratory Processing [facility] Mobile Home Draw [address] [place] [address] 02/21/2022 Laboratory Laboratory Processing [facility], [facility] Mobile Home Draw [address] [place] [address] 03/07/2022 Laboratory Laboratory Processing [facility], [facility] Mobile Home Draw [address] [place] [address] 03/24/2022 Office Visit Pulmonary Reynaldo Marquez MD [address] [place] [facility] [place] [address] 06/24/2022 Office Visit Sleep Disorders Love Francisco, DO [address] [facility] [place] [address] Scheduled Procedures Name Priority Associated Diagnoses Date/Ti [...] of this encounter Implants Implanted Type Area Customer Care Coordinator Device Identifier Shelf Expiration Date Model / Serial / Lot Microtech Sure Clip Implanted:Qty: 2 on 06/03/2020 by Janis Hatch DO at OR [facility] Clip N/A: Colon 04/21/2022 [facility]-F-26-2 35-C-R / / [id number] documented as of this encounter Advance Directives Documents on File Type Date Recorded 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
--- OUTSIDE RECORDS SUMMARY | 2023-05-10 19:37 | External Medical Summary | Summary of Care ---
Author Name Unknown Organization [facility] [place] [address] Care Team Providers Care Rn Support Services Name Role Phone Vanita Dunn MD Primary Care Provid er Reason for Visit * Reason Onset Date Comments Medication Refill 09/29/2021 Encounter Details Date Type Department Care Team Description 09/29/2021 Telephone [facility] [address] [place] [address] Vanita Dunn MD [address] [place] [address] Medication Refill Allergies Active Allergy Reactions Severity [...] 120 Vial 11 10/02/2019 Active nystatin (NYSTOP) 253140 UNIT/GM powder Apply topically to affected area [...] of Breath, Informant: Pharmacy, Reported on 02/04/2021 DexYoogaia G6 Retread Builder Device Use as directed. To test [...] Strip 3 10/29/2020 Active OneTouch Delica Plus [id number] TESTING once daily 100 Each 3 10/29/2020 [...] pain 01/24/2012 01/17/2017 Genetic Sleep Disorder Research Other*[id number] 05/13/2011 04/07/2016 Obstructive sleep apnea 01/18/2011 12/27/19 [...] Telephone Encounter - Indira Hudson RPh - 09/30/2021 1:50 PM EST Patient gets Dexcom Sensors through DME through [employer]. Paperwork was faxed to them on 09/20/21. Patient cannot get sensors covered through the pharmacy directly. Prior Auth through pharmacy will likely not resolve the issue. Sent follow-up email to [employer] and awaiting response. Patient Phone Numbers Mobile VM not set up. Spoke with woman in household via home number who reports patient not home. Left message above. She will relay the message. Discussed will reach out with updates. Indira Hudson RP, Pharm D, BCACP Clinical Pharmacist 09/30/21 1:52 PM * Telephone Encounter - Jarett Kaiser, quantitative analyst - 09/29/2021 5:21 PM EST Pt requesting a call back from DR bello concerning her DExcom sensors. Pt was told she needed to speak with Office because pharmacy sent a Pre Auth in for sensors and pt is down to 1 left. Pt hasnot heard anything about it. No notes in system about it. Sending message. Thank You, Jarett Kaiser Venture Capitalist [facility] 09/29/2021, 5:23 PM documented in this encounter Plan of Treatment Upcoming Encounters Date Type Specialty Care Team Description 09/30/2021 Hospital Encounter Radiology 09/30/2021 Appointment Radiology 10/01/2021 Telemedicine [facility] Joselin Dawson CRNP [address] [facility] [place] [address] Kaylee Barakat, Community Health Skate Hop [address] [place] [address] 10/04/2021 Laboratory Laboratory Processing [facility] Mobile Home Draw [address] [place] [address] 10/04/2021 Home Visit [facility] July Poe, RN [address] [facility] [place] [address] 10/06/2021 Telemedicine [facility] Joselin Dawson CRNP [address] [place] [address] Kaylee Barakat, [facility] [employer] [address] [place] [address] 10/13/2021 Telemedicine [facility] Joselin Dawson CRNP [address] [place] [address] Kaylee Barakat, Community [facility] [employer] [address] [place] [address] 10/18/2021 Laboratory Laboratory Processing [facility] Mobile Home Draw [address] [place] [address] 10/20/2021 Office Visit Family Medicine Vanita Dunn MD [address] [place] [address] 10/20/2021 Immunization/Injection Hematology Oncolog y Nurse, Med [address] [place] [address] 10/22/2021 Office Visit Sleep Disorders Love Francisco DO [address] [place] [address] 10/29/2021 Office Visit Cardiology Quyen Canseco CRNP [address] [place] [address] 11/01/2021 Laboratory Laboratory Processing [facility] Mobile Home Draw [address] [place] [address] 11/02/2021 Imaging Radiology 11/10/2021 Office Visit Pharmacy [facility] [address] [place] [address] 11/15/2021 Laboratory Laboratory Processing [facility] Mobile Home Draw [address] [place] [address] 11/29/2021 Laboratory Laboratory Processing [facility] Mobile Home Draw [address] [place] [address] 12/13/2021 Laboratory Laboratory Processing [facility] Mobile Home Draw [address] [place] [address] 12/22/2021 Office Visit Endocrinology Alberta Duque PA-C [address] [place] [address] 12/23/2021 Office Visit Gastroenterology Lyssa Stout CRNP [address] [place] [address] 12/27/2021 Laboratory Laboratory Processing [facility] Mobile Home Draw [address] [place] [address] 01/04/2022 Office Visit Hematology Oncology Tono Sanchez MD [address] [place] [address] 01/10/2022 Laboratory Laboratory Processing [facility] Mobile Home Draw [address] [place] [address] 01/24/2022 Laboratory Laboratory Processing [facility] Mobile Home Draw [address] [place] [address] 02/07/2022 Laboratory Laboratory Processing [facility] Mobile Home Draw [address] [place] [address] 02/21/2022 Laboratory Laboratory Processing [facility] Mobile Home Draw [address] [place] [address] 03/07/2022 Laboratory Laboratory Processing [facility] Mobile Home Draw [address] [place] [address] 03/24/2022 Office Visit Pulmonary Reynaldo Marquez MD [address] [place] [address] 06/24/2022 Office Visit Sleep Disorders Love Francisco, [address] [place] [address] Scheduled Procedures Name Priority Associated Diagnoses Date/Ti [...] of this encounter Implants Implanted Type Area Process Tank Tender Device Identifier Shelf Expiration Date Model / Serial / Lot Microtech Sure Clip Implanted:Qty: 2 on 06/03/2020 by Janis Hatch DO at OR H Clip N/A: Colon 04/21/2022 [facility]-F-26-2 35-C-R / / [id number] documented as of this encounter Advance Directives Documents on File Type Date Recorded 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
--- OUTSIDE RECORDS SUMMARY | 2023-05-10 19:38 | External Medical Summary | Summary of Care ---
Author Name Unknown Organization [facility] Address [place] [address] Care Team Providers Care Conduit Installer Name Role Phone Vanita Dunn MD Primary Care Provid er Reason for Visit * Reason Onset Date Comments [facility]: Maintenance 09/29/2021 Encounter Details Date Type Department Care Team Description 09/29/2021 Scheduled Telephone [facility], [facility] [address] [facility] [place] [address] Coordinator, [facility] [address] [facility] [place] [address] Hemoptysis* Allergies Active Allergy Reactions Severity Noted Date Comments Adhesive Tape Itching 04/29/2020 Penicillins Rash 02/12/2008 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 120 Vial 11 10/02/2019 Active nystatin (NYSTOP) 065749 UNIT/GM powder Apply topically to affected area [...] of Breath, Informant: Pharmacy, Reported on 02/04/2021 DexDash Hudson G6 Stunner And Shackler Device Use as directed. To test blood [...] Strip 3 10/29/2020 Active OneTouch Delica Plus Hkrjyg28M TESTING once daily 100 Each 3 10/29/2020 [...] as of this encounter (statuses as of 09/29/2021) Active Problems Problem Noted Date Food insecurity [...] as of this encounter (statuses as of 09/29/2021) Resolved Problems Problem Noted Date Resolved Date [...] pain 01/24/2012 01/17/2017 Genetic Sleep Disorder Research Other*[id number] 05/13/2011 04/07/2016 Obstructive sleep apnea 01/18/2011 12/27/19 [...] as of this encounter (statuses as of 09/29/2021) Immunizations Name Administration Dates Next Due COVID-19 [...] Telephone Encounter - Michelle Vyas RN - 09/29/2021 5:26 PM EST Call lt patient. Spoke with Shaina and asked her if she could get a repeat chest xray while she is getitng her US. Also, asked her to then go to the lab and and get a cbc. Patient on speaker phone andfamily in agreement. Will follow up tomorrow to see if xray and lab drawn. Michelle Vyas. RN GA plastic injection mold maker [phone] * Addendum Note - ZAK Lara - 09/29/2021 1:27 PM EST Addended by: JOSELIN DAWSON on: 09/29/2021 01:27 PM Modules accepted: Orders * Telephone Encounter - ZAK Lara - 09/29/2021 1:20 PM EST I tried to call pt--home number and cell and spouse's number to further discuss her reported symptoms, no answer and unable to leave a message. I am concerned for possible hemoptysis. I have placed order for repeat chest xray--please try to reach pt and see if she can get this completed tomorrow when she gets u/s. Also, I would like cbc, canshe go to lab? Please find out if she is coughing dark black all the time or just once? Need either nurse visit Monday (if he cannot get labs tomorrow then nurse to draw labs) or telemedicine with me Monday (if she is able to get labs tomorrow at [place]) * Telephone Encounter - Dorothy Walker LPN - 09/29/2021 12:34 PM EST Phone call f/u on prednisone Spoke with patient Still with cough-only able to get production a few times-states what she did cough up was very dark/almost black Seeing PCP on 10/20 Taking prednisone as directed Breathing is much better Using nebulizer as directed Denies any fever/chills Has to go to [place] tomorrow for a radiology visit Will only be home til about 1230pm Advised to call with any worsening symptoms documented in this encounter Plan of Treatment Upcoming Encounters Date Type Specialty Care Team Description 09/30/2021 Scheduled Telephone [facility]es[facility] Laborer, [facility] [address] [facility] [place] [address] 09/30/2021 Hospital Encounter Radiology 09/30/2021 Appointment Radiology 10/04/2021 Laboratory Laboratory Processing [facility], [facility] Mobile Home Draw [address] [facility] [place] [address] 10/04/2021 Home Visit [facility] July Poe RN [address] [facility] [place] [address] 10/06/2021 Telemedicine [facility] Joselin Dawson CRNP [address] [facility], [place] [address] Kaylee Barakat, Community Health Microfilm Equipment Inspector [facility] [place] [address] 10/13/2021 [facility]medicine [facility] [address] [facility] [address] Kaylee Barakat, Pending Sale To [facility] Microfilm Equipment Inspector [facility] [place] [address] 10/18/2021 Laboratory Laboratory Processing [facility], [facility] Mobile Home Draw [facility] [place] [address] 10/20/2021 Office Visit Family Medicine Vanita Dunn MD [address] [place] [address] 10/20/2021 Immunization/Injection Hematology Oncolog y Nurse, Med [address] [place] [address] 10/22/2021 Office Visit Sleep Disorders Love Francisco DO [address] [facility] [place] [address] 10/29/2021 Office Visit Cardiology Qu[facility]en [facility]sec[facility] [address] [facility] [address] 11/01/2021 Laboratory Laboratory Processing [facility], [facility] Mobile Home Draw [address] [place] [address] 11/02/2021 Imaging Radiology 11/10/2021 Office Visit [address] [address] 11/15/2021 Laboratory Laboratory Processing [facility] Mobile Home Draw [address] [place] [address] 11/29/2021 Laboratory Laboratory Processing [facility] Draw [address] [place] [address] 12/13/2021 Laboratory Laboratory Processing [facility] Mobile Home Draw [address] [place] [address] 12/22/2021 Office Visit Endocrinology Alberta Duque PA-C [address] [place] [address] 12/23/2021 Office Visit Gastroenterology Lyssa Stout CRNP [address] [place] [address] 12/27/2021 Laboratory Laboratory Processing [facility] Mobile Home Draw [address] [place] [address] 01/04/2022 Office Visit Hematology Oncology Tono Sanchez MD [address] [place] [address] 01/10/2022 Laboratory Laboratory Processing [facility] Mobile Home Draw [address] [place] [address] 01/24/2022 Laboratory Laboratory Processing [facility] Mobile Home Draw [address] [place] [address] 02/07/2022 Laboratory Laboratory Processing [facility], [facility] Mobile Home Draw [address] [place] [address] 02/21/2022 Laboratory Laboratory Processing [facility], [facility] Mobile Home Draw [address] [place] [address] 03/07/2022 Laboratory Laboratory Processing [facility], [facility] Mobile Home Draw [address] [place] [address] 03/24/2022 Office Visit Pulmonary Reynaldo Marquez MD [address] [place] [address] 06/24/2022 Office Visit Sleep Disorders Love Francisco, DO [address] [facility] [place] [address] Scheduled Orders Name Type Priority Associated Diagnoses Orde r Schedule XR CHEST 2 VIEWS Medical Imaging Routine Hemoptysis Ordered: 09/29/2021 Scheduled Procedures Name Priority Associated Diagnoses Date/Ti [...] of this encounter Implants Implanted Type Area Desk Pen Set Assembler Device Identifier Shelf Expiration Date Model / Serial / Lot Microtech Sure Clip Implanted:Qty: 2 on 06/03/2020 by Janis Hatch DO at OR [facility] Clip N/A: Colon 04/21/2022 [facility]-F-26-2 35-C-R / / [id number] documented as of this encounter Visit Diagnoses Diagnosis Hemoptysis- Primary Hemoptysis, unspecified documented in this encounter Advance Directives Documents on File Type Date Recorded Patient Natural Developer 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 WILL AND HEALTH CARE POA Power of Dry Color Mixer 04/29/2021 12:00 AM TOM R [facility] POA Advanced Directive 04/01/2021 1:14 [...] Syed Bustos Spouse Emergency Contact Care Teams Conduit Installer Relationship Specialty Start Date End Date Vanita Dunn MD [address] [place] [address] PCP - General Family Medicine 03/16/21 documented as of this encounter
--- OUTSIDE RECORDS SUMMARY | 2023-05-10 19:38 | External Medical Summary | Summary of Care ---
Author Name Unknown Organization [facility] Address [place] [address] Care Team Providers Care Shuttle Filler Name Role Phone Vanita Dunn MD Primary Care Provid er Reason for Visit * Reason Onset Date Comments [facility]: Maintenance 09/29/2021 Encounter Details Date Type Department Care Team Description 09/29/2021 Scheduled Telephone [facility], [facility] [address] [facility] [place] [address] Coordinator, [facility] [address] [facility] [place] [address] Hemoptysis* Allergies Active Allergy Reactions Severity Noted [...] 120 Vial 11 10/02/2019 Active nystatin (NYSTOP) 954942 UNIT/GM powder Apply topically to affected area [...] of Breath, Informant: Pharmacy, Reported on 02/04/2021 DexSymvato G6 Storeroom Supervisor Device Use as directed. To test [...] Strip 3 10/29/2020 Active OneTouch Delica Plus Vvhjin50O TESTING once daily 100 Each 3 10/29/2020 [...] pain 01/24/2012 01/17/2017 Genetic Sleep Disorder Research Other*[id number] 05/13/2011 04/07/2016 Obstructive sleep apnea 01/18/2011 12/27/19 [...] - 09/29/2021 1:27 PM EST Addended by: MICAH STARKEY on: 09/29/2021 01:27 PM Modules accepted: Orders [...] is able to get labs tomorrow at [place]) * Telephone Encounter - Dorothy Walker LPN - 09/29/2021 12:34 PM EST Phone call f/u on prednisone Spoke with patient Still with cough-only able to get production a few times-states what she did cough up was very dark/almost black Seeing PCP on 10/20 Taking prednisone as directed Breathing is much better Using nebulizer as directed Denies any fever/chills Has to go to [place] tomorrow for a radiology visit Will only be home til about 1230pm Advised to call with any worsening symptoms documented in this encounter Plan of Treatment Upcoming Encounters Date Type Specialty Care Team Description 09/29/2021 Pharmacy [facility] Pharmacist, [place] [address] [address] [facility] [place] [address] 09/30/2021 Scheduled Telephone [facility] Puffer Tender, [facility] [address] [place] [address] 09/30/2021 Hospital Encounter Radiology 09/30/2021 Appointment Radiology 10/04/2021 Laboratory Laboratory Processing [facility] Mobile Home Draw [address] [place] [address] 10/04/2021 Home Visit [facility] July Poe RN [address] [place] [address] 10/18/2021 Laboratory Laboratory Processing [facility], [facility] Mobile Home Draw [address] [place] [address] 10/20/2021 Office Visit Family Medicine Vanita Dunn MD [address] [place] [address] 10/20/2021 Immunization/Injecti o n Hematology Oncology Nurse, Med 4 [address] [facility] [place] [address] 10/22/2021 Office Visit Sleep Disorders Love Francisco DO [address] [place] [address] 10/29/2021 Office Visit Cardiology Quyen Canseco CRNP [address] [place] [address] 11/01/2021 Laboratory Laboratory Processing [facility] Mobile Home Draw [address] [place] [address] 11/02/2021 Imaging Radiology 11/10/2021 Office Visit Pharmacy [facility] [address] [place] [address] 11/15/2021 Laboratory Laboratory Processing [facility] Mobile Home Draw [address] [place] [address] 11/29/2021 Laboratory Laboratory Processing [facility] Mobile Home Draw [address] [place] [address] 12/13/2021 Laboratory Laboratory Processing [facility] Mobile Home Draw [address] [place] [address] 12/22/2021 Office Visit Endocrinology Alberta Duque PA-C [address] [place], [place] [address] 12/23/2021 Office Visit Gastroenterology Lyssa Stout, ZAK [address] [place] [address] 12/27/2021 Laboratory Laboratory Processing [facility] Mobile Home Draw [address] [place] [address] 01/04/2022 Office Visit Hematology Oncology Tono Sanchez MD [address] [place] [address] 01/10/2022 Laboratory Laboratory Processing [facility] Mobile Home Draw [address] [place] [address] 01/24/2022 Laboratory Laboratory Processing [facility] Mobile Home Draw [address] [place] [address] 02/07/2022 Laboratory Laboratory Processing [facility] Mobile Home Draw [address] [place] [address] 02/21/2022 Laboratory Laboratory Processing [facility] Mobile Home Draw [address] [place] [address] 03/07/2022 Laboratory Laboratory Processing [facility] Mobile Home Draw [address] [place] [address] 03/24/2022 Office Visit Pulmonary Reynaldo Marquez MD [address] [place] [address] 06/24/2022 Office Visit Sleep Disorders Love Francisco DO [address] [place] [address] Scheduled Orders Name Type Priority Associated Diagnoses [...] of this encounter Implants Implanted Type Area Application Trainer Device Identifier Shelf Expiration Date Model / Serial / Lot Microtech Sure Clip Implanted:Qty: 2 on 06/03/2020 by Janis Hatch DO at OR [facility] Clip N/A: Colon 04/21/2022 [facility]-F-26-2 35-C-R / / [id number] documented as of this encounter Visit Diagnoses Diagnosis Hemoptysis- Primary Hemoptysis, unspecified documented in this encounter Advance Directives Documents on File Type Date Recorded Patient Senior Salesforce Developer 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 LIVING WILL AND HEALTH CARE PO Power Mold Capper Helper 04/29/2021 12:00 AM TOM [facility] Advanced Directive 04/01/2021 1:14 PM Advanced [...] Syed Bustos Spouse Emergency Contact Care Teams Shuttle Filler Relationship Specialty Start Date End Date Vanita Dunn MD [address] [place] [address] PCP - General Family Medicine 03/16/21 documented as of this encounter
--- OUTSIDE RECORDS SUMMARY | 2023-05-10 19:38 | External Medical Summary | Summary of Care ---
Author Name Unknown Organization [facility] Address [place] [address] Care Team Providers Care Client Relations Specialist Name Role Phone Vanita Dunn MD Primary Care Provid er Reason for Visit * Reason Onset Date Comments [facility]: Maintenance 09/29/2021 Encounter Details Date Type Department Care Team Description 09/29/2021 Scheduled Telephone [facility], [facility] 132 [facility] [place] [address] Coordinator, [facility] [place] 132 [facility] [place] [address] Hemoptysis* Allergies Active Allergy Reactions Severity Noted [...] 120 Vial 11 10/02/2019 Active nystatin (NYSTOP) 008309 UNIT/GM powder Apply topically to affected area [...] of Breath, Informant: Pharmacy, Reported on 02/04/2021 DexTRIAXIS MEDICAL DEVICES G6 Marina Porter Device Use as directed. To test blood [...] Strip 3 10/29/2020 Active OneTouch Delica Plus [id number] TESTING once daily 100 Each 3 10/29/2020 [...] pain 01/24/2012 01/17/2017 Genetic Sleep Disorder Research Other*[id number] 05/13/2011 04/07/2016 Obstructive sleep apnea 01/18/2011 12/27/19 [...] is able to get labs tomorrow at [place]) * Telephone Encounter - Dorothy Walker LPN - 09/29/2021 12:34 PM EST Phone call f/u on prednisone Spoke with patient Still with cough-only able to get production a few times-states what she did cough up was very dark/almost black Seeing PCP on 10/20 Taking prednisone as directed Breathing is much better Using nebulizer as directed Denies any fever/chills Has to go to [place] tomorrow for a radiology visit Will only be home til about 1230pm Advised to call with any worsening symptoms documented in this encounter Plan of Treatment Upcoming Encounters Date Type Specialty Care Team Description 09/29/2021 Pharmacy [facility] Pharmacist, Artemio [place] [address] [address] [facility] [place] [address] 09/30/2021 Scheduled Telephone [facility] Cattle Manager, [facility] [place] 132 [place] [address] 09/30/2021 Hospital Encounter Radiology 09/30/2021 Appointment Radiology 10/04/2021 Laboratory Laboratory Processing [facility] Mobile Home Draw [address] [place] [address] 10/04/2021 Home Visit [facility] July Poe RN [address] [place] [address] 10/18/2021 Laboratory Laboratory Processing [facility] Mobile Home Draw [address] [place] [address] 10/20/2021 Office Visit Family Medicine Vanita Dunn MD [address] [place] [address] 10/20/2021 Immunization/Injecti o n Hematology Oncology Nurse, Med 4 200 [facility] [place] [address] 10/22/2021 Office Visit Sleep Disorders Love Francisco DO 132 [place] [address] 10/29/2021 Office Visit Cardiology Quyen Canseco CRNP 132 [facility] [place] [address] 11/01/2021 Laboratory Laboratory Processing [facility] Mobile Home Draw [address] [place] [address] 11/02/2021 Imaging Radiology 11/10/2021 Office Visit Pharmacy [facility] [address] [place] [address] 11/15/2021 Laboratory Laboratory Processing [facility] Mobile Home Draw [address] [place] [address] 11/29/2021 Laboratory Laboratory Processing [facility] Mobile Home Draw [address] [place] [address] 12/13/2021 Laboratory Laboratory Processing [facility] Mobile Home Draw [address] [place] [address] 12/22/2021 Office Visit Endocrinology Alberta Duque PA-C [address] [place], [place] [address] 12/23/2021 Office Visit Gastroenterology Lyssa Stout, ZAK [address] [place] [address] 12/27/2021 Laboratory Laboratory Processing [facility] Mobile Home Draw [address] [place] [address] 01/04/2022 Office Visit Hematology Oncology Tono Sanchez MD [address] [place] [address] 01/10/2022 Laboratory Laboratory Processing [facility] Mobile Home Draw [address] [place] [address] 01/24/2022 Laboratory Laboratory Processing [facility] Mobile Home Draw [address] [place] [address] 02/07/2022 Laboratory Laboratory Processing [facility] Mobile Home Draw [address] [place] [address] 02/21/2022 Laboratory Laboratory Processing [facility] Mobile Home Draw [address] [place] [address] 03/07/2022 Laboratory Laboratory Processing [facility] Mobile Home Draw [address] [place] [address] 03/24/2022 Office Visit Pulmonary Reynaldo Marquez MD [address] [place] [address] 06/24/2022 Office Visit Sleep Disorders Love Francisco DO 132 [place] [address] Scheduled Orders Name Type Priority Associated Diagnoses [...] of this encounter Implants Implanted Type Area Real Estate Associate Attorney Device Identifier Shelf Expiration Date Model / Serial / Lot Microtech Sure Clip Implanted:Qty: 2 on 06/03/2020 by Janis Hatch DO at OR [facility] Clip N/A: Colon 04/21/2022 [facility]-F-26-2 35-C-R / / [id number] documented as of this encounter Visit Diagnoses Diagnosis Hemoptysis- Primary Hemoptysis, unspecified documented in this encounter Advance Directives Documents on File Type Date Recorded Patient Cafeteria Table Attendant 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 LIVING WILL AND HEALTH CARE PO Power Fiberglass Boat Assembly Supervisor 04/29/2021 12:00 AM TOM [facility] Advanced Directive 04/01/2021 1:14 PM Advanced Directive [...] Syed Bustos Spouse Emergency Contact Care Teams Client Relations Specialist Relationship Specialty Start Date End Date Vanita Dunn MD [address] [place] [address] PCP - General Family Medicine 03/16/21 documented as of this encounter
--- OUTSIDE RECORDS SUMMARY | 2023-05-10 19:38 | External Medical Summary | Summary of Care ---
Author Name Unknown Organization [place] [address] Care Team Providers Care Cvt Rn Name Role Phone Vanita Dunn MD Primary Care Provid er Reason for Visit * Reason Comments Medication Management Encounter Details Date Type Department Care Team Description 09/29/2021 Pharmacy [facility] [place], [facility] [address] [facility] [place] [id number] Pharmacist, [facility] [address] [facility] [place] [address] DM type 2 with diabetic peripheral neuropathy (HCC)* Allergies Active Allergy Reactions Severity Noted [...] 120 Vial 11 10/02/2019 Active nystatin (NYSTOP) 617423 UNIT/GM powder Apply topically to affected area [...] Informant: Pharmacy, Reported on 02/04/2021 Dexcom G6 Rice Dryer Mechanic Device Use as directed. To test [...] Strip 3 10/29/2020 Active OneTouch Delica Plus [id number] TESTING once daily 100 Each 3 10/29/2020 [...] pain 01/24/2012 01/17/2017 Genetic Sleep Disorder Research Other*[id number] 05/13/2011 04/07/2016 Obstructive sleep apnea 01/18/2011 12/27/19 [...] as of this encounter Progress Notes * Shane Patrick RPh - 09/29/2021 1:55 PM EST [facility] - [facility] Attempted to contact patient. Unable to contact - left message to return [facility] call regarding DM. [facility] number provided. Shane Patrick RPh [facility] 09/29/2021,1:55 PM documented in this encounter Plan of Treatment Upcoming Encounters Date Type Specialty Care Team Description 09/30/2021 Scheduled Telephone [facility] Chief Embalmer, Brady Chavez Count Includes [facility] [address] [facility] [place] [address] 09/30/2021 Hospital Encounter Radiology 09/30/2021 Appointment Radiology 10/04/2021 Laboratory Laboratory Processing [facility] Mobile Home Draw [address] [facility] [id number] 10/04/2021 Home Visit [facility] July Poe RN [address] [facility] [place] [address] 10/06/2021 Telemedicine [facility] Joselin Dawson CRNP [address] [facility] [place] [address] Kaylee Barakat, Community Health Community Representative [address] [place] [address] 10/13/2021 Telemedicine [facility] Joselin Dawson CRNP [address] [facility] [place] [address] Kaylee Barakat, Community Health Community Representative [address] [place] [address] 10/18/2021 Laboratory Laboratory Processing [facility], [facility] Mobile Home Draw [address] [place] [address] 10/20/2021 Office Visit Family Medicine Vanita Dunn MD [address] [place] [address] 10/20/2021 Immunization/Injection Hematology Oncolog y Nurse, Med 4 200 [place] [address] 10/22/2021 Office Visit Sleep Disorders Love Francisco DO [address] [address] 10/29/2021 Office Visit Cardiology Quyen Canseco CRNP [address] [place] [address] 11/01/2021 Laboratory Laboratory Processing [facility] Mobile Home Draw [address] [place] [address] 11/02/2021 Imaging Radiology 11/10/2021 Office Visit [address] [address] 11/15/2021 Laboratory Laboratory Processing [facility] Mobile Home Draw [address] [place] [address] 11/29/2021 Laboratory Laboratory Processing [facility] Mobile Home Draw [address] [place] [address] 12/13/2021 Laboratory Laboratory Processing [facility] Mobile Home Draw [address] [place] [address] 12/22/2021 Office Visit Endocrinology Alberta Duque PA-C [address] [place] [address] 12/23/2021 Office Visit Gastroenterology Lyssa Stout, ZAK 132 [place] [address] 12/27/2021 Laboratory Laboratory Processing [facility] Mobile Home Draw [address] [place] [address] 01/04/2022 Office Visit Hematology Oncology Tono Sanchez MD 200 [place] [address] 01/10/2022 Laboratory Laboratory Processing [facility] Mobile Home Draw [address] [place] [address] 01/24/2022 Laboratory Laboratory Processing [facility], [facility] Mobile Home Draw [address] [place] [address] 02/07/2022 Laboratory Laboratory Processing [facility], [facility] Mobile Home Draw [address] [place] [address] 02/21/2022 Laboratory Laboratory Processing [facility], [facility] Mobile Home Draw [address] [place] [address] 03/07/2022 Laboratory Laboratory Processing [facility], [facility] Mobile Home Draw [address] [place] [address] 03/24/2022 Office Visit Pulmonary Reynaldo Marquez MD [address] [facility] [place] [address] 06/24/2022 Office Visit Sleep Disorders Love Francisco, DO [address] [place] [address] Scheduled Procedures Name Priority Associated Diagnoses [...] of this encounter Implants Implanted Type Area Crop Consultant Device Identifier Shelf Expiration Date Model / Serial / Lot Microtech Sure Clip Implanted:Qty: 2 on 06/03/2020 by Janis Hatch DO at OR [facility] Clip N/A: Colon 04/21/2022 [facility]-F-26-2 35-C-R / / [id number] documented as of this encounter Visit Diagnoses Diagnosis DM type 2 with diabetic peripheral neuropathy (HCC)- Primary Type II or unspecified type diabetes mellitus with neurological manifestations, not stated as uncontrolled documented in this encounter Advance Directives Documents on File Type Date Recorded Patient Histology Supervisor 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 AND HEALTH CARE POA Power of Livestock Handler 04/29/2021 12:00 AM TOM R OF PROTECTIVE SERVICES OFFICER HEALTH CARE POA Advanced Directive 04/01/2021 [...] Syed Bustos Spouse Emergency Contact Care Teams Cvt Rn Relationship Specialty Start Date End Date Vanita Dunn MD [address] [place] [address] PCP - General Family Medicine 03/16/21 documented as of this encounter
--- OUTSIDE RECORDS SUMMARY | 2023-05-10 19:38 | External Medical Summary | Summary of Care ---
Author Name Unknown Organization [facility] Address [place] [address] Care Team Providers Care Blueprinting Machine Operator Name Role Phone Vanita Dunn MD Primary Care Provid er Reason for Visit * Reason Onset Date Comments [facility]: Maintenance 09/29/2021 Encounter Details Date Type Department Care Team Description 09/29/2021 Scheduled Telephone [facility], [facility] 132 [facility] [place] [address] Coordinator, [facility] 132 [facility] [place] [address] Hemoptysis* Allergies Active Allergy Reactions Severity Noted [...] 120 Vial 11 10/02/2019 Active nystatin (NYSTOP) 707963 UNIT/GM powder Apply topically to affected area [...] of Breath, Informant: Pharmacy, Reported on 02/04/2021 DexGuideWall G6 Boilermaker Central Steam Plant Device Use as directed. 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 THAD Haas * Telephone Encounter - Michelle Vyas RN [...] xray and lab drawn. Michelle Vyas. RN [facility] RN [phone] * Addendum Note - ZAK Lara - [...] is able to get labs tomorrow at [place]) * Telephone Encounter - Dorothy Walker LPN - 09/29/2021 12:34 PM EST Phone call f/u on prednisone Spoke with patient Still with cough-only able to get production a few times-states what she did cough up was very dark/almost black Seeing PCP on 10/20 Taking prednisone as directed Breathing is much better Using nebulizer as directed Denies any fever/chills Has to go to [place] tomorrow for a radiology visit Will only be home til about 1230pm Advised to call with any worsening symptoms documented in this encounter Plan of Treatment Upcoming Encounters Date Type Specialty Care Team Description 09/30/2021 Scheduled Telephone [facility] Dental Assistant, [address] [place] [address] 09/30/2021 Hospital Encounter Radiology 09/30/2021 Appointment Radiology 10/01/2021 Telemedicine [facility] Joselin Dawson CRNP [address] [place] [address] Kaylee Barakat, Community Health Senior Formulation Scientist [address] [place] [address] 10/04/2021 Laboratory Laboratory Processing [facility], [facility] Mobile Home Draw [address] [place] [address] 10/04/2021 Home Visit [facility] July Poe RN [address] [place] [address] 10/06/2021 Telemedicine [facility] Joselin Dawson CRNP [address] [place] [address] Kaylee Barakat, Community Health Senior Formulation Scientist [address] [place] [address] 10/13/2021 Telemedicine [facility] Joselin Dawson CRNP [address] [place] [address] Kaylee Barakat, Community Health Senior Formulation Scientist [address] [place] [address] 10/18/2021 Laboratory Laboratory Processing [facility] Mobile Home Draw [address] [place] [address] 10/20/2021 Office Visit Family Medicine Vanita Dunn MD [address] [place] [address] 10/20/2021 Immunization/Injection Hematology Oncolog y Nurse, Med 4 200 [facility] [place] [address] 10/22/2021 Office Visit Sleep Disorders Love Francisco DO 132 [place] [address] 10/29/2021 Office Visit Cardiology Quyen Canseco CRNP 132 [place] [address] 11/01/2021 Laboratory Laboratory Processing [facility] Mobile Home Draw [address] [place] [address] 11/02/2021 Imaging Radiology 11/10/2021 Office Visit [address] [address] 11/15/2021 Laboratory Laboratory Processing [facility] Mobile Home Draw [address] [place] [address] 11/29/2021 Laboratory Laboratory Processing [facility] Mobile Home Draw [address] [place] [address] 12/13/2021 Laboratory Laboratory Processing [facility] Mobile Home Draw [address] [place] [address] 12/22/2021 Office Visit Endocrinology Alberta Duque PA-C [address] [place] [address] 12/23/2021 Office Visit Gastroenterology Lyssa Stout CRNP 132 [facility] [address] 12/27/2021 Laboratory Laboratory Processing [facility] Mobile Home Draw [address] [place] [address] 01/04/2022 Office Visit Hematology Oncology Tono Sanchez MD 200 [place] [address] 01/10/2022 Laboratory Laboratory Processing [facility] Mobile Home Draw [address] [place] [address] 01/24/2022 Laboratory Laboratory Processing [facility] Mobile Home Draw [address] [place] [address] 02/07/2022 Laboratory Laboratory Processing [facility], [facility] Mobile Home Draw [address] [place] [address] 02/21/2022 Laboratory Laboratory Processing [facility], [facility] Mobile Home Draw [address] [place] [address] 03/07/2022 Laboratory Laboratory Processing [facility] Mobile Home Draw [address] [place] [address] 03/24/2022 Office Visit Pulmonary AlmaReynaldo MD [address] [place] [address] 06/24/2022 Office Visit Sleep Disorders Love Francisco, 132 [facility] [address] Scheduled Orders Name Type Priority Associated Diagnoses [...] this encounter Implants Implanted Type Area Coremaker Experimental Device Identifier Shelf Expiration Date Model / Serial / Lot Microtech Sure Clip Implanted:Qty: 2 on 06/03/2020 by Janis Hatch DO at OR [facility] Clip N/A: Colon 04/21/2022 [facility]-F-26-2 35-C-R / / [id number] documented as of this encounter Visit Diagnoses Diagnosis Hemoptysis- Primary Hemoptysis, unspecified documented in this encounter Advance Directives Documents on File Type Date Recorded Patient Copy Technician 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 HEALTH CARE POA Power of Real Estate Transaction Coordinator 04/29/2021 12:00 AM [facility] FISHING FLOATS ASSEMBLERFIRSTHEALTH POA Advanced Directive 04/01/2021 1:14 PM Advanced [...] Syed Bustos Spouse Emergency Contact Care Teams Blueprinting Machine Operator Relationship Specialty Start Date End Date Vanita Dunn MD [address] [place] [address] PCP - General Family Medicine 03/16/21 documented as of this encounter
--- OUTSIDE RECORDS SUMMARY | 2023-05-10 19:39 | External Medical Summary | Summary of Care ---
Author Name Unknown Organization [facility] Address [place] [address] Care Team Providers Care All Round Logger Name Role Phone Vanita Dunn MD Primary Care Provid er Reason for Visit * Reason Onset Date Comments [facility]: Maintenance 09/29/2021 Encounter Details Date Type Department Care Team Description 09/29/2021 Scheduled Telephone [facility], [facility] 132 [facility] [place] [address] Coordinator, [facility] 132 [facility] [place] [address] Allergies Active Allergy Reactions Severity Noted Date [...] 120 Vial 11 10/02/2019 Active nystatin (NYSTOP) 422510 UNIT/GM powder Apply topically to affected area [...] of Breath, Informant: Pharmacy, Reported on 02/04/2021 DexEchoPixel G6 Fire Equipment Operator Device Use as directed. To test [...] Strip 3 10/29/2020 Active OneTouch Delica Plus Szgegr06A TESTING once daily 100 Each 3 10/29/2020 [...] pain 01/24/2012 01/17/2017 Genetic Sleep Disorder Research Other*[id number] 05/13/2011 04/07/2016 Obstructive sleep apnea 01/18/2011 12/27/19 [...] Denies any fever/chills Has to go to [place] tomorrow for a radiology visit Will only be home til about 1230pm Advised to call with any worsening symptoms documented in this encounter Plan of Treatment Upcoming Encounters Date Type Specialty Care Team Description 09/29/2021 Pharmacy [facility] PharmacistArtemio [address] [place] [address] 09/30/2021 Scheduled Telephone [facility] Client Solutions Manager, [facility] 132 [facility] [place] [address] 09/30/2021 Hospital Encounter Radiology 09/30/2021 Appointment Radiology 10/04/2021 Laboratory Laboratory Processing [facility] Mobile Home Draw [address] [place] [address] 10/04/2021 Home Visit [facility] July Poe RN 132 [facility] [place] [address] 10/18/2021 Laboratory Laboratory Processing [facility] Mobile Home Draw [address] [place] [address] 10/20/2021 Office Visit Family Medicine Vanita Dunn MD [address] [place] [address] 10/20/2021 Immunization/Injecti o n Hematology Oncology Nurse, Med 4 [address] [place] [address] 10/22/2021 Office Visit Sleep Disorders Love Francisco DO 132 [facility] [place] [address] 10/29/2021 Office Visit Cardiology Quyen Canseco CRNP 132 [facility] [place] [address] 11/01/2021 Laboratory Laboratory Processing [facility] Mobile Home Draw [address] [place] [address] 11/02/2021 Imaging Radiology 11/10/2021 Office Visit Pharmacy [facility] [address] [place] [address] 11/15/2021 Laboratory Laboratory Processing [facility] Mobile Home Draw [address] [place] [address] 11/29/2021 Laboratory Laboratory Processing [facility] Mobile Home Draw [address] [place] [address] 12/13/2021 Laboratory Laboratory Processing [facility] Mobile Home Draw [address] [place] [address] 12/22/2021 Office Visit Endocrinology Alberta Duque PA-C [address] [place] [address] 12/23/2021 Office Visit Gastroenterology Lyssa Stout CRNP [address] [place] [address] 12/27/2021 Laboratory Laboratory Processing [facility] Mobile Home Draw [address] [place] [address] 01/04/2022 Office Visit Hematology Oncology Tono Sanchez MD [address] [place] [address] 01/10/2022 Laboratory Laboratory Processing [facility] Mobile Home Draw [address] [place] [address] 01/24/2022 Laboratory Laboratory Processing [facility] Mobile Home Draw [address] [place] [address] 02/07/2022 Laboratory Laboratory Processing [facility] Mobile Home Draw [address] [place] [address] 02/21/2022 Laboratory Laboratory Processing [facility] Mobile Home Draw [address] [place] [address] 03/07/2022 Laboratory Laboratory Processing [facility] Mobile Home Draw [address] [place] [address] 03/24/2022 Office Visit Pulmonary Reynaldo Marquez MD [address] [place] [address] 06/24/2022 Office Visit Sleep Disorders Love Francisco, 132 [facility] [place] [address] Scheduled Procedures Name Priority Associated Diagnoses Date/Ti [...] of this encounter Implants Implanted Type Area Fur Buyer Device Identifier Shelf Expiration Date Model / Serial / Lot Microtech Sure Clip Implanted:Qty: 2 on 06/03/2020 by Janis Hatch DO at OR [facility] Clip N/A: Colon 04/21/2022 [facility]-F-26-2 35-C-R / / [id number] documented as of this encounter Advance Directives Documents on File Type Date Recorded Patient Relocation Services Specialist 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 AND HEALTH CARE POA Power of Business Division Chair 04/29/2021 12:00 AM [facility]OM R [facility] Advanced Directive 04/01/2021 1:14 [...] Syed Bustos Spouse Emergency Contact Care Teams All Round Logger Relationship Specialty Start Date End Date Vanita Dunn MD [address] [place] [id number] PCP - General Family Medicine 03/16/21 documented as of this encounter
--- OUTSIDE RECORDS SUMMARY | 2023-05-10 19:39 | External Medical Summary | Summary of Care ---
Author Name Unknown Organization [facility] Address [place] [address] Care Team Providers Care Channel Process Plant Operator Name Role Phone Vanita Dunn MD Primary Care Provid er Reason for Visit * Reason Onset Date Comments [facility]: Maintenance 09/29/2021 Encounter Details Date Type Department Care Team Description 09/29/2021 Scheduled Telephone [facility], [facility] [address] [facility] [place] [address] Coordinator, [facility] [address] [place] [address] Allergies Active Allergy Reactions Severity Noted Date [...] 120 Vial 11 10/02/2019 Active nystatin (NYSTOP) 483067 UNIT/GM powder Apply topically to affected area [...] of Breath, Informant: Pharmacy, Reported on 02/04/2021 [employer] G6 Library Media Assistant Device Use as directed. To test [...] Strip 3 10/29/2020 Active OneTouch Delica Plus [id number] TESTING once daily 100 Each 3 10/29/2020 [...] pain 01/24/2012 01/17/2017 Genetic Sleep Disorder Research Other*[id number] 05/13/2011 04/07/2016 Obstructive sleep apnea 01/18/2011 12/27/19 [...] Denies any fever/chills Has to go to [place] tomorrow for a radiology visit Will only be home til about 1230pm Advised to call with any worsening symptoms documented in this encounter Plan of Treatment Upcoming Encounters Date Type Specialty Care Team Description 09/29/2021 Pharmacy [facility] PharmacistArtemio [address] [place] [address] 09/30/2021 Scheduled Telephone [facility] Resource Planning Consultant, [facility] [address] [facility] [place] [address] 09/30/2021 Hospital Encounter Radiology 09/30/2021 Appointment Radiology 10/04/2021 Laboratory Laboratory Processing [facility] Draw [address] [place] [address] 10/04/2021 Home Visit [facility] July Poe RN [address] [facility] [place] [address] 10/18/2021 Laboratory Laboratory Processing [facility] Home Draw [address] [place] [address] 10/20/2021 Office Visit Family Medicine Vanita Dunn MD [address] [place] [address] 10/20/2021 Immunization/Injecti o n Hematology Oncology Nurse, Med [address] [place] [address] 10/22/2021 Office Visit Sleep Disorders Love Francisco DO [address] [facility] [place] [address] 10/29/2021 Office Visit Cardiology Quyen Canseco CRNP [address] [facility] [place] [address] 11/01/2021 Laboratory Laboratory Processing [facility] Home Draw [address] [place] [address] 11/02/2021 Imaging Radiology 11/10/2021 Office Visit Pharmacy [facility] [address] [place] [address] 11/15/2021 Laboratory Laboratory [facility] Draw [address] [place] [address] 11/29/2021 Laboratory Laboratory Processing [facility] [address] [place] [address] 12/13/2021 Laboratory Laboratory Processing [facility] Draw [address] [place] [address] 12/22/2021 Office Visit Endocrinology Alberta Duque PA-C [address] [place] [address] 12/23/2021 Office Visit Gastroenterology Lyssa Stout CRNP [address] [place] [address] 12/27/2021 Laboratory Laboratory Processing [facility] [address] [place] [address] 01/04/2022 Office Visit Hematology Oncology Tono Sanchez MD [address] [place] [address] 01/10/2022 Laboratory Laboratory Processing [facility] Draw [address] [place] [address] 01/24/2022 Laboratory Laboratory Processing [facility] Draw [address] [place] [address] 02/07/2022 Laboratory Laboratory Processing [facility] Draw [address] [place] [address] 02/21/2022 Laboratory Laboratory Processing [facility], [facility] Home Draw [address] [place] [address] 03/07/2022 Laboratory Laboratory Processing [facility], [facility] Draw [address] [place] [address] 03/24/2022 Office Visit Pulmonary Reynaldo Marquez MD [address] [place] [address] 06/24/2022 Office Visit Sleep Disorders Love Francisco, [address] [facility] [facility] [place] [address] Scheduled Procedures Name Priority Associated Diagnoses Date/Ti [...] this encounter Implants Implanted Type Area Inspector Balance Wheel Motion Device Identifier Shelf Expiration Date Model / Serial / Lot [employer] Sure Clip Implanted:Qty: 2 on 06/03/2020 by Janis Hatch DO at OR H Clip N/A: Colon 04/21/2022 [facility]-F-26-2 35-C-R / / [id number] documented as of this encounter Advance Directives Documents on File Type Date Recorded Patient Career Services Representative Expl 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 WILL AND HEALTH CARE POA Power of Retort Furnace Operator 04/29/2021 12:00 AM TOM R [facility] Advanced Directive 04/01/2021 1:14 PM [...] Bustos Spouse Emergency Contact Care Teams Channel Process Plant Operator Relationship Specialty Start Date End Date Vanita Dunn MD [address] [place] [phone] PCP - General Family Medicine 03/16/21 documented as of this encounter
--- OUTSIDE RECORDS SUMMARY | 2023-05-10 19:40 | External Medical Summary | Summary of Care ---
Author Name Unknown Organization [facility] [place] [address] Care Team Providers Care Grade Checker Name Role Phone Vanita Dunn MD Primary Care Provid er Reason for Referral * Evaluate & Treat - Unlimited Visits (Within 3 days (urgent)) - Authorized Specialty Diagnoses / Procedures Referred By Contac t Referred To Contact Pharmacist / Pharmacy Diagnoses Esophageal varices without bleeding, unspecified esophageal varices type (HCC) Iron deficiency anemia, unspecified iron deficiency anemia type NG (nonalcoholic steatohepatitis) Hepatic cirrhosis, unspecified hepatic cirrhosis type, unspecified whether ascites present (HCC) Portal hypertension (HCC) Gastropathy Joselin Dawson, ZAK [address] [facility] [place] [address] Referral ID Status Reason Start Date Expiration Date Visits Requested Visits Authorized [id number] Authorized Specialty Services Required 09/27/2021 99 99 Question Answer Referral Priority Within 3 days (urgent) Department: Primary Care Reason for Referral: Other - anemia Comments Pharmacist Medication Therapy Management: Minimum frequency patient should be seen in person for medication management: as appropriate per clinical condition and patient status By my signature, I understand that my patient Shaina Bustos will have her medication therapy managed by the [facility] Medication Therapy Disease Management Clinic ([facility]) per established policies, procedures, and protocols. I also certify that this referral may serve as an initiation of service for the management of drug therapy in the above noted patient. [facility] providers will be responsible for scheduling patient visits, obtaining appropriate laboratory studies, and adjusting medication management therapy per patient's need, in addition to those roles spelled out in the clinic policy, procedures, and drug management protocols. I understand that the service provided by the [facility] is voluntary and have informed patient that they can refuse the service at their discretion. I am aware that the [facility] Clinic will provide me with a copy of the patient encounter via my [employer]. I authorize the [facility] Clinic to carry out these activities on my behalf. I consider this program to be a necessary part of the patient's medical care. ZAK Lara Reason for Visit * Reason Comments [facility]: Enrollment Encounter Details Date Type Department Care Team Description 09/27/2021 Home Visit [facility], [facility] [address] [place] [address] Joselin Dawson CRNP [address] [facility] [place] [address] Moderate persistent asthma with exacerbation*; Rhinovirus infection; Chronic diastolic heart failure (HCC); Esophageal varices without bleeding, unspecified esophageal varices type (HCC); Cerebral palsy, unspecified type (HCC); DM type 2 with diabetic peripheral neuropathy (HCC); Iron deficiency anemia, unspecified iron deficiency anemia type; NG (nonalcoholic steatohepatitis); Hepatic cirrhosis, unspecified hepatic cirrhosis type, unspecified whether ascites present (HCC); Portal hypertension (HCC); Gastropathy; Recurrent major depressive disorder, in partial remission (HCC); Body mass index (BMI) of 50.0 to 59.9 in adult (HCC); Thrombocytopenia (HCC); HTN, goal below 140/90; Acquired hypothyroidism; Dyslipidemia, goal LDL below 70; Chronic hypoxemic respiratory failure (HCC); Obesity, morbid (more than 100 lbs over ideal weight or BMI > 40) (HCC) Allergies Active Allergy Reactions Severity Noted Date Comments Adhesive Tape Itching 04/29/2020 Penicillins Rash 02/12/2008 Perflutren Protein A Microsph 2019 Definity-lower back pain documented as of this encounter (statuses as of 09/28/2021) Medications Medication Sig Dispensed Refills Start Date End Date Status albuterol sulfate (PROVENTIL) (2.5 MG/3ML) 0.083% nebulizer solutionIndications :Pulmonary vascular congestion Inhale 1 Vial via nebulizer every 6 hours as needed for Wheezing. 120 Vial 11 0 Active nystatin (NYSTOP) 766041 UNIT/GM powder Apply topically to affected area [...] Informant: Pharmacy, Reported on 02/04/2021 Dexcom G6 Floor Person Device Use as directed. To test [...] Strip 3 1 Active OneTouch Delica Plus Idronh27P TESTING once daily 100 Each 3 1 [...] tablet daily. 90 Tab 1 1 Active Oxybutynin Chloride 5 MG Oral Tablet (Ditropan) TAKE 1 TABLET BY MOUTH TWICE DAILY 180 Tab 1 1 Active Ibuprofen 800 MG [...] a day. 10.2 g 1 2 Active predniSONE 20 MG Oral Tablet (Deltasone)Indicati ons:Moderate persistent asthma with exacerbation Take 2 Tablets by mouth daily for 5 days. 10 Tablet 0 2 10/02/19 22 Active Dexcom G6 Sensor Use as directed. To test blood sugars 4 times a day. Change sensor every 10 days. Dx E11.9 Please dispense 3 boxes for 90 day supply 3 Each 3 1 09/27/19 22 Discontinued documented as of this encounter (statuses as of 09/28/2021) Active Problems Problem Noted Date Food insecurity 09/20/2021 Overview: Per [facility] Protocol Chronic diastolic (congestive) heart [...] as of this encounter (statuses as of 09/28/2021) Resolved Problems Problem Noted Date Resolved Date [...] pain 01/24/2012 01/17/2017 Genetic Sleep Disorder Research Other*[id number] 05/13/2011 04/07/2016 Obstructive sleep apnea 01/18/2011 12/27/19 [...] as of this encounter (statuses as of 09/28/2021) Immunizations Name Administration Dates Next Due COVID-19 [...] Sign Reading Time Taken Comments Blood Pressure 90/52 09/27/2021 12:36 PM EST Pulse 75 09/27/2021 12:36 PM EST Temperature 37.3 C (99.1 F) 09/27/2021 12:[address] Respiratory Rate 16 09/27/2021 12:36 PM EST Oxygen Saturation 91% 09/27/2021 12:36 PM EST Inhaled Oxygen Concentration - - [...] encounter Progress Notes * ZAK Lara - 09/27/2021 11:30 AM EST [facility] Provider Visit Date: 09/27/2021 Time: 10:12 AM HPI: Shaina Bustos is a 66 year old female seen in her home for a provider visit. ED 09/23/21-productive cough--she also reported low hgb and high ammonia levels. Ammonia 90, + rhinovirus, hgb 7.3. She admitted she was not taking her lactulose as ordered. She had a nova catheter placed and requested that it stay in because she wears depends and had dysuria. exam done in ED and noted some excoriations around labia but no active bleeding. Chronic medical conditions: --Cerebral palsy--has motorized scooter--has caregiver assistance 40 hours a week. Did not make it in d/t bad weather today. --chronic diastolic CHF--on lasix 20mg daily. Followed by cardiology --chronic resp failure--d/t progressive neuromuscular disease--on non-invasive home ventilator she wears at night. Does not wear oxygen during the day. --liver cirrhosis--per last GI note, to consider TIPS if persistent anemia secondary to portal HTN,gastropathy. She reports she is taking lactulose. Her reports that she did not have dose yesterday. Last BM2 days ago. --DM with neuropathy-checks at least daily running 150-200--has panfilo --iron def anemia--followed by hematology in the past. Noted being difficult to manage her anemia d/t frequent hospitalizations, missing clinic appt and port flushes. Recommended every other week blood workup. --depression--reports occasionally d/t her limited functional capacity. is supportive. On lexapro. --asthma--has neb to use prn --morbid obesity --hypothyroidism--on levoxyl --HLD--on atorvastatin Gets blister packs filled at pharmacy. Spouse gives meds when they are do. He is with her 03/04. Sheanswers most of her questions "I don't know" and defers most of her medical mgmt to her .Shehas been coughing, did not use neb. Not using singulair regularly. Component Latest Ref Rng & Units 08/19/2021 Hemoglobin A1C 4.0 - 5.6 % 7.1 (H) Estimated Average Glucose <126 mg/dL 157 (H) Component Latest Ref Rng & Units 09/23/2021 Iron 33 - 151 ug/dL 39 Iron Binding Capacity 250 - 425 ug/dL 288 Transferrin Saturation Percent 15 - 55 % 14 (L) Ferritin 13 - 150 ng/mL 33 Component Latest Ref Rng & Units 09/23/2021 Ammonia 11 - 35 umol/L 90 (HH) Component Latest Ref Rng & Units 09/14/2021 09/20/2021 09/23/2021 WBC 4.00 - 10.80 K/uL 3.17 (L) 3.72 (L) 4.70 RBC 3.85 - 5.15 M/uL 2.65 (L) 2.66 (L) 2.60 (L) HGB 12.0 - 15.3 g/dL 7.7 (L) 7.6 (L) 7.3 (L) HCT 36.0 - 45.2 % 27.7 (L) 26.9 (L) 25.7 (L) MCV 81.5 - 97.5 fL 104.5 (H) 101.1 (H) 98.8 (H) MCH 27.0 - 34.0 pg 29.1 28.6 28.1 MCHC 32.0 - 36.0 g/dL 27.8 (L) 28.3 (L) 28.4 (L) RDW 11.5 - 15.5 % 20.4 (H) 20.2 (H) 20.3 (H) MPV 6.6 - 11.1 fL 13.2 (H) Nucleated RBC <=0 /100 WBCs 0 1 (H) 0 Plt 140 - 400 K/uL 99 (L) 90 (L) 100 (L) Component Latest Ref Rng & Units [...] 118 Calcium 8.4 - 10.2 mg/dL 9.0 ROS: Review of Systems Constitutional: Positive for activity change and fatigue. Negative for appetite change and fever. Respiratory: Positive for cough (INNERSOLE MAKER). Negative for shortness of breath and wheezing. Cardiovascular: Negative for chest pain and leg swelling. Gastrointestinal: Negative for abdominal pain and constipation. See HPI Genitourinary: Urine clear yellow Musculoskeletal: Negative. Negative for arthralgias. Skin: Negative for color change, pallor, rash and wound. Neurological: Negative for dizziness and light-headedness. Physical Exam: BP 90/52 | Pulse 75 | Temp 37.3 C (99.1 F) | Resp 16 | SpO2 91% SpO2 88% on RA Placed oxygen via mask and increased to 91-92% BP Readings from Last 4 Encounters: 09/28/21 108/68 09/27/21 90/52 09/23/21 111/62 09/20/21 122/68 Wt Readings from Last 4 Encounters: 09/23/21 113.4 kg (250 lb) 08/03/21 115.2 kg (254 lb) 07/22/21 115.2 kg (254 lb) 07/10/21 127 kg (280 lb) Physical Exam Constitutional: Appearance: She is morbidly obese. HENT: Head: Normocephalic. Cardiovascular: Rate and Rhythm: Normal rate and regular rhythm. Pulmonary: Effort: Pulmonary effort is normal. Breath sounds: Normal breath sounds. Comments: INNERSOLE MAKER coughing during exam Genitourinary: Comments: Nova draining clear yellow urine Musculoskeletal: Right lower leg: No edema. Left lower leg: No edema. Skin: General: Skin is warm and dry. Coloration: Skin is pale. Neurological: Mental Status: She is alert. Mental status is at baseline. Psychiatric: Mood and Affect: Mood normal. Behavior: Behavior normal. Thought Content: Thought content normal. Judgment: Judgment normal. Assessment/Plan: 1. Moderate persistent asthma with exacerbation Gave neb treatment during visit. Also applied oxygen with improvement in SpO2. Advised to keep oxygen on. Plan for nurse visit recheck tomorrow. They cannot find pulse oximeter. Will see if nurse canprovide pt with one. Advised to use neb 4 times daily. Use singulair as ordered. Start prednisone taper. Harsh coughing during visit. No acute distress. [facility] referral to call and follow up blood sugars after starting prednisone. Also followed by pulm. - predniSONE 20 MG Oral Tablet (Deltasone); Take 2 Tablets by mouth daily for 5 days. Dispense: 10 Tablet; Refill: 0 - [facility] OP 2. Rhinovirus infection 3. Chronic diastolic heart failure (HCC) Euvolemic on lasix Followed by cardiology 4. Esophageal varices without bleeding, unspecified esophageal varices type ([facility]) Referral anemia clinic to assist with monitoring counts. Followed by GI - [facility] THERAP[facility] MGMT REFERRAL OP 5. Cerebral palsy, unspecified type ([facility]) Spouse assists with care and has caregivers in the home. Hospital bed and candace transfer 6. DM type 2 with diabetic peripheral neuropathy ([facility]) controlledon gabapentin, metformin, novolog and trulicity Followed by endocrinology - [facility] 7. Iron deficiency anemia, unspecified iron deficiency anemia type - PHARMACIST MEDS THERAPY MGMT REFERRAL OP 8. NG (nonalcoholic steatohepatitis) - PHARMACIST MEDS THERAPY MGMT REFERRAL OP 9. Hepatic cirrhosis, unspecified hepatic cirrhosis type, unspecified whether ascites present ([facility]) - PHARMACIST MEDS THERAPY MGMT REFERRAL OP Advised spouse that pt must have lactulose as ordered to ensure ammonia levels do not rise. He voiced understanding. 10. Portal hypertension (HCC) - PHARMACIST MEDS THERAPY MGMT REFERRAL OP 11. Gastropathy - PHARMACIST MEDS THERAPY MGMT REFERRAL OP 12. Recurrent major depressive disorder, in partial remission (HCC) lexapro 13. Body mass index (BMI) of 50.0 to 59.9 in adult (HCC) 14. Thrombocytopenia (HCC) 15. HTN, goal below 140/90 BP slightly low today and asymptomatic. Will monitor. 16. Acquired hypothyroidism levoxyl 17. Dyslipidemia, goal LDL below 70 atorvastatin 18. Chronic hypoxemic respiratory failure (HCC) 19. Obesity, morbid (more than 100 lbs over ideal weight or BMI > 40) ([facility]) Home Interventions Provided: Oral Medications: Other; prednisone Reinforced current Plan of Care, including self-management and medication regimen Nurse visit recheck tomorrow. ZAK Lara documented in this encounter Plan of Treatment Upcoming Encounters Date Type Specialty Care Team Description 09/28/2021 Pharmacy Pharmacy Clinic, Anemia [address] [facility] [place] [address] Iron deficiency anemia due to chronic blood loss* 09/29/2021 Scheduled Telephone [facility] Environmental Engineer, [address] [place] [address] 09/30/2021 Scheduled Telephone [facility] Environmental [facility], [address] [place] [address] 09/30/2021 Appointment Radiology 09/30/2021 Appointment Radiology 10/01/2021 Office Visit Family Medicine Vanita Dunn MD [address] [place] [address] 10/04/2021 Home Visit [facility] July Poe RN [address] [facility] [place] [address] 10/20/2021 Immunization/Inject ion Hematology Oncology Nurse, Med [address] [place] [address] 10/22/2021 Office Visit Sleep Disorders Love Francisco DO [address] [place] [address] 10/29/2021 Office Visit [facility]iology [facility] [place] [address] 11/02/2021 Imaging Radiology 11/10/2021 Office Visit Pharmacy Brai Res[facility] [address] [place] [facility] [place] [address] 12/22/2021 Office Visit Endocrinology Alberta Duque PA-C [address] [place] [address] 12/23/2021 Office Visit Gastroenterology Lyssa Stout CRNP [address] [place] [address] 01/04/2022 Office Visit Hematology Oncology Tono Sanchez MD [address] [place] [address] 03/24/2022 Office Visit Pulmonary Reynaldo Marquez MD [address] [place] [address] 06/24/2022 Office Visit Sleep Disorders Love Francisco DO [address] [place] [address] Scheduled Procedures Name Priority Associated Diagnoses Date/Ti me ESOPHAGOGASTRODUODENOSCOPY ( EGD), FLEXIBLE, TRANSORAL, DIAGNOSTIC Recall Esophagitis COLONOSCOPY FLEXIBLE PROXIMAL DIAGNOSTIC Recall History of colonic polyps Scheduled Referrals Name Type Priority Associated Diagnoses Orde r Schedule PHARMACIST MEDS THERAPY MGMT REFERRAL OP Referral Within 3 days (urgent) Esophageal varices without bleeding, unspecified esophageal varices type (HCC) Iron deficiency anemia, unspecified iron deficiency anemia type NG (nonalcoholic steatohepatitis) Hepatic cirrhosis, unspecified hepatic cirrhosis type, unspecified whether ascites present (HCC) Portal hypertension (HCC) Gastropathy Ordered: 09/27/2021 Health Maintenance Due Date Last Done Comments [...] of this encounter Implants Implanted Type Area Field Irrigation Worker Device Identifier Shelf Expiration Date Model / Serial / Lot [employer] Sure Clip Implanted:Qty: 2 on 06/03/2020 by Janis Hatch DO at OR [facility] Clip N/A: Colon 04/21/2022 [facility]-F-26-2 35-C-R / / [id number] documented as of this encounter Visit Diagnoses Diagnosis Moderate persistent asthma with exacerbation- Primary Unspecified asthma, with exacerbation Rhinovirus infection Rhinovirus infection in conditions classified elsewhere and of unspecified site Chronic diastolic heart failure (HCC) Chronic diastolic heart failure Esophageal varices without bleeding, unspecified esophageal varices type (HCC) Cerebral palsy, unspecified type (HCC) DM type 2 with diabetic peripheral neuropathy (HCC) Type II or unspecified type diabetes mellitus with neurological manifestations, not stated as uncontrolled Iron deficiency anemia, unspecified iron deficiency anemia type NG (nonalcoholic steatohepatitis) Other chronic nonalcoholic liver disease Hepatic cirrhosis, unspecified hepatic cirrhosis type, unspecified whether ascites present (HCC) Portal hypertension (HCC) Portal hypertension Gastropathy Unspecified disorder of stomach and duodenum Recurrent major depressive disorder, in partial remission (HCC) Body mass index (BMI) of 50.0 to 59.9 in adult (HCC) Thrombocytopenia (HCC) Thrombocytopenia, unspecified HTN, goal below 140/90 Unspecified essential hypertension Acquired hypothyroidism Unspecified hypothyroidism Dyslipidemia, goal LDL below 70 Other and unspecified hyperlipidemia Chronic hypoxemic respiratory failure (HCC) Chronic respiratory failure Obesity, morbid (more than 100 lbs over ideal weight or BMI > 40) (HCC) Morbid obesity Iron deficiency anemia due to chronic blood loss- Primary Iron deficiency anemia secondary to blood loss (chronic) documented in this encounter Advance Directives Documents on File Type Date Recorded 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
--- OUTSIDE RECORDS SUMMARY | 2023-05-10 19:40 | External Medical Summary | Summary of Care ---
Author Name Unknown Organization [place] [address] Care Team Providers Care Tanbark Laborer Name Role Phone Vanita Dunn MD Primary Care Provid er Reason for Referral * Ancillary Services (Within 3 days (urgent)) - Authorized Specialty Diagnoses / Procedures Referred By Contac t Referred To Contact Food Chemist Diagnoses Esophageal varices without bleeding, unspecified esophageal varices type (HCC) Iron deficiency anemia, unspecified iron deficiency anemia type Joselin Dawson, ZAK [address] [place] [address] Referral ID Status Reason Start Date Expiration Date Visits Requested Visits Authorized [id number] Authorized Ancillary Services Required 09/28/2021 1 1 Question Answer Referral Priority Within 3 days (urgent) Comments Is Patient homebound? Yes All sections of this form must be filled out completely. Forms with missing or illegible information will be returned for completion. This form should not be modified in any way. Forms that have been modified will be returned. This form may not be submitted by a home health agency. It must be complete and submitted by the ordering provider. One full business day lead time is required and service will be scheduled based on the next service day for the [facility] Home Phlebotomy does not service every geographical location on a daily basis. Contact [facility] Client Services at to find out service days for a specific location. Medical Laboratory [address] [place] [address] Power Banuelos M.D. Director and Pest Control Worker Helper Patient Name: Shaina Bustos : 1955 Sex: female Address [address] [place] [address] [place] [address] Provider: None? Vanita Dunn MD? Diagnosis: Tests Requested Cbc every 2 weeks starting week of 10/04/21 * Evaluate & Treat - Unlimited Visits (Within 10 days (routine)) - Authorized Specialty Diagnoses / Procedures Referred By Evangelina jeter Referred To Contact Obstetrics/Gynecology / Gynecology Obstetrics Diagnoses Post-menopausal bleeding Joselin Dawson CRNP [address] [place] [address] Referral ID Status Reason Start Date Expiration Date Visits Requested Visits Authorized [id number] Authorized Specialty Services Required 09/28/2021 1 1 Question Answer Referral Priority Within 10 days (routine) What condition is the patient being seen for? Bleeding Specific Condition: Irregular - post menopausal Reason for Visit * Reason Onset Date Comments Advice 09/28/2021 Encounter Details Date Type Department Care Team Description 09/28/2021 Telephone [facility], [facility] [address] [place] [address] Joselin Dawson CRNP [address] [place] [address] Advice Allergies Active Allergy Reactions Severity Noted [...] 120 Vial 11 10/02/2019 Active nystatin (NYSTOP) 855255 UNIT/GM powder Apply topically to affected area [...] Informant: Pharmacy, Reported on 02/04/2021 Dexcom G6 Overlock Sleeve Setter Device Use as directed. To test [...] Strip 3 10/29/2020 Active OneTouch Delica Plus Lodffh10E TESTING once daily 100 Each 3 10/29/2020 [...] 09/16/2021 Active Benzonatate 100 MG Oral Capsule ([place] [...] pain 01/24/2012 01/17/2017 Genetic Sleep Disorder Research Other*[id number] 05/13/2011 04/07/2016 Obstructive sleep apnea 01/18/2011 12/27/19 [...] * Addendum Note - ZAK Lara - 09/28/2021 1:22 PM EST Addended by: JOSELIN DAWSON on: 09/28/2021 01:22 PM Modules accepted: Orders * Telephone Encounter - ZAK Lara - 09/28/2021 1:20 PM EST Orders in for mobile to collect cbc every 2 weeks starting week 10/04/21. I have placed radiation protection engineer referral. Can cancel pelvic ultrasound since radiation protection engineer can do that, if needed, at office visit. [facility] scheduling--please schedule appt. * Telephone Encounter - ZAK Bolton - 09/28/2021 12:49 PM EST Can we check her CBC every 2 weeks to start? If stable can reduce frequency. Can she also be set up to see CNC MAINTENANCE MECHANIC for the c/o vaginal bleeding? ZAK Schreiber * Telephone Encounter - ZAK Lara - 09/28/2021 12:11 PM EST Lyssa and Dr. Ledy Sanchez and Dr. John Sanchez, Pt seen by [facility] yesterday. Recently in ED 09/23 for elevated ammonia levels and anemia. ? hemtauria vs vaginal bleeding? A nova was placed and urine is clear. Pelvic ultrasound has been ordered but needs completed. Per last GI note, hepatology to consider TIPS for persistent anemia secondary to portal HTN, gastropathy. I placed a referral for anemia clinic but they deferred to GI and hematology for follow up. --please let me know recommendations for how often her labs should be drawn and other treatment recommendations. --[facility] scheduling--please assist with scheduling transvaginal u/s--she will need to go to clinic forthis (I do not believe mobile can do transvaginal) --[facility] nursing--pt currently has nova that was left in from ED visit--pt requested to have left in d/t dysuria--evidently had some excoriations on labia. There is no other indication for nova to remain intact so would recommend d/c ihsan when healed. Urine culture was negative. Component Latest Ref Rng & Units 09/23/2021 Iron 33 - 151 ug/dL 39 Iron Binding Capacity 250 - 425 ug/dL 288 Transferrin Saturation Percent 15 - 55 % 14 (L) Ferritin 13 - 150 ng/mL 33 Component Latest Ref Rng & Units 06/16/2021 09/14/2021 09/20/2021 09/23/2021 WBC 4.00 - 10.80 K/uL 2.87 (L) 3.17 (L) 3.72 (L) 4.70 RBC 3.85 - 5.15 M/uL 2.95 (L) 2.65 (L) 2.66 (L) 2.60 (L) HGB 12.0 - 15.3 g/dL 9.0 (L) 7.7 (L) 7.6 (L) 7.3 (L) HCT 36.0 - 45.2 % 29.4 (L) 27.7 (L) 26.9 (L) 25.7 (L) MCV 81.5 - 97.5 fL 99.7 (H) 104.5 (H) 101.1 (H) 98.8 (H) MCH 27.0 - 34.0 pg 30.5 29.1 28.6 28.1 MCHC 32.0 - 36.0 g/dL 30.6 (L) 27.8 (L) 28.3 (L) 28.4 (L) RDW 11.5 - 15.5 % 18.7 (H) 20.4 (H) 20.2 (H) 20.3 (H) MPV 6.6 - 11.1 fL 12.8 (H) 13.2 (H) Nucleated RBC <=0 /100 WBCs 0 0 1 (H) 0 Plt 140 - 400 K/uL 84 (L) 99 (L) 90 (L) 100 (L) Anisocytosis None Seen Moderate (A) Elliptocytes None Seen Few (A) Macrocytosis None Seen Present (A) Tear Drop Cells None Seen Few (A) documented in this encounter Plan of Treatment Upcoming Encounters Date Type Specialty Care Team Description 09/28/2021 Pharmacy Pharmacy Clinic, Anemia [address] [facility] [place] [address] Iron deficiency anemia due to chronic blood loss* 09/29/2021 Scheduled Telephone [facility] [address] [facility] [place] [address] 09/29/2021 Pharmacy [facility] Pharmacist, Artemio [address] [place] [address] 09/30/2021 Scheduled Telephone [facility] [employer], Brady Decker 132 [facility] [place] [address] 09/30/2021 Appointment Radiology 09/30/2021 Appointment Radiology 10/01/2021 Office Visit Family Medicine Vanita Dunn MD [address] [place] [address] 10/04/2021 Home Visit [facility] July Poe RN 132 [facility] [place] [address] 10/20/2021 Immunization/Inject ion Hematology Oncology Nurse, [facility] [address] [place] [address] 10/22/2021 Office Visit [facility] Disorders Love Francisco [facility] [place] [address] 10/29/2021 Office Visit Cardiology Quyen Canseco CRNP 132 [facility] [place] [address] 11/02/2021 Imaging Radiology 11/10/2021 Office Visit Pharmacy [facility] [address] [place] [address] 12/22/2021 Office Visit Endocrinology Alberta Duque PA-C [address] [facility] [place] [address] 12/23/2021 Office Visit Gastroenterology Lyssa Stout CRNP 132 [facility] [place] [address] 01/04/2022 Office Visit Hematology Oncology Tono Sanchez MD [address] [facility] [place] [address] 03/24/2022 Office Visit Pulmonary Reynaldo Marquez MD [address] [place] [address] 06/24/2022 Office Visit Sleep Disorders Love Francisco, DO 132 [facility] [place] [address] Scheduled Orders Name Type Priority Associated Diagnoses Orde r Schedule CBC Lab Routine Esophageal varices without bleeding, unspecified esophageal varices type (HCC) Iron deficiency anemia, unspecified iron deficiency anemia type Every 2 Weeks for 26 Occurrences starting 09/28/2021 until 09/28/2022 Scheduled Procedures Name Priority Associated Diagnoses Date/Ti me ESOPHAGOGASTRODUODENOSCOPY ( EGD), FLEXIBLE, TRANSORAL, DIAGNOSTIC Recall Esophagitis COLONOSCOPY FLEXIBLE PROXIMAL DIAGNOSTIC Recall History of colonic polyps Scheduled Referrals Name Type Priority Associated Diagnoses Orde r Schedule CNC MAINTENANCE MECHANIC REFERRAL OP Referral Within 10 days (routine) Post-menopausal bleeding Ordered: 09/28/2021 HOME PHLEBOTOMY REFERRAL OP Referral Within 3 days (urgent) Esophageal varices without bleeding, unspecified esophageal varices type (HCC) Iron deficiency anemia, unspecified iron deficiency anemia type Ordered: 09/28/2021 Health Maintenance Due Date Last Done Comments [...] of this encounter Implants Implanted Type Area Front Maker Lockstitch Device Identifier Shelf Expiration Date Model / Serial / Lot Microtech Sure Clip Implanted:Qty: 2 on 06/03/2020 by Janis Hatch DO at OR [facility] Clip N/A: Colon 04/21/2022 [facility]-F-26-2 35-C-R / / [id number] documented as of this encounter Visit Diagnoses Diagnosis Iron deficiency anemia due to chronic blood loss- Primary Iron deficiency anemia secondary to blood loss (chronic) Esophageal varices without bleeding, unspecified esophageal varices type (HCC)- Primary Iron deficiency anemia, unspecified iron deficiency anemia type Post-menopausal bleeding Postmenopausal bleeding documented in this encounter Advance Directives Documents on File Type Date Recorded 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
--- OUTSIDE RECORDS SUMMARY | 2023-05-10 19:40 | External Medical Summary | Summary of Care ---
Author Name Unknown Organization [facility] Address [facility] [place] [address] Care Team Providers Care Commercial Manager Name Role Phone Vanita Dunn MD Primary Care Provid er Reason for Visit * Reason Onset Date Comments Advice 09/28/2021 Encounter Details Date Type Department Care Team Description 09/28/2021 Telephone [facility], [facility] [address] [facility] [place] [address] Joselin Dawson CRNP [address] [facility] [address] Advice Allergies Active Allergy Reactions Severity Noted [...] 120 Vial 11 10/02/2019 Active nystatin (NYSTOP) 811939 UNIT/GM powder Apply topically to affected area [...] Informant: Pharmacy, Reported on 02/04/2021 Dexcom G6 Pulmonary Physician Device Use as directed. To test [...] Strip 3 10/29/2020 Active OneTouch Delica Plus Jymyuf26M TESTING once daily 100 Each 3 10/29/2020 [...] sleep apnea) 02/09/2015 Leg weakness, bilateral 01/01/2015 09/27/20 16 Allergic rhinitis 05/29/2014 02/13/2018 Allergic conjunctivitis [...] pain 01/24/2012 01/17/2017 Genetic Sleep Disorder Research Other*[id number] 05/13/2011 04/07/2016 Obstructive sleep apnea 01/18/2011 12/27/19 [...] she also be set up to see PEDIATRIC REGISTERED NURSE for the c/o vaginal bleeding? ZAK Schreiber * Telephone Encounter - ZAK Lara - 09/28/2021 12:11 PM EST Lyssa and Dr. Ledy Sanchez and Dr. John Sanchez, Pt seen by [facility] yesterday. Recently in ED 09/23 for elevated [...] should be drawn and other treatment recommendations. --[facility] scheduling--please assist with scheduling transvaginal u/s--she will need to go to clinic forthis (I do not believe mobile can do transvaginal) --[facility] nursing--pt currently has nova that was left [...] 09/28/2021 Pharmacy Pharmacy Clinic, Anemia [address] [facility] [place] [id number] Iron deficiency anemia due to chronic blood loss* 09/29/2021 Scheduled Telephone [facility], [address] [place] [address] 09/29/2021 Pharmacy [facility] Pharmacist, [address] [place] [address] 09/30/2021 Scheduled Telephone [facility], [address] [place] [address] 09/30/2021 Appointment Radiology 09/30/2021 Appointment Radiology 10/01/2021 Office Visit Family Medicine Vanita Dunn MD [address] [place] [address] 10/04/2021 Home Visit [facility] July Poe RN 132 [facility] [place] [address] 10/20/2021 Immunization/Inject ion Hematology Oncology Nurse, Med [facility] [address] 10/22/2021 Office Visit Sleep Disorders Love Francisco, DO 132 [facility] [place] [address] 10/29/2021 Office Visit Cardiology Quyen Canseco CRNP 132 [facility] [place] [address] 11/02/2021 Imaging Radiology 11/10/2021 Office Visit Pharmacy [facility] [address] [place] [address] 12/22/2021 Office Visit Endocrinology Alberta Duque PA-C [address] [place], [place] [phone] 12/23/2021 Office Visit Gastroenterology Lyssa Stout CRNP 132 [facility] [address] 01/04/2022 Office Visit Hematology Oncology Tono Sanchez MD 200 [place] [address] 03/24/2022 Office Visit Pulmonary Reynaldo Marquez MD [address] [place] [address] 06/24/2022 Office Visit Sleep Disorders Love Francisco DO 132 [facility] [address] Scheduled Procedures Name Priority Associated Diagnoses Date/Ti [...] of this encounter Implants Implanted Type Area Rubber Stamp Die Inspector Device Identifier Shelf Expiration Date Model / Serial / Lot Microtech Sure Clip Implanted:Qty: 2 on 06/03/2020 by Janis Hatch DO at OR [facility] Clip N/A: Colon 04/21/2022 [facility]-F-26-2 35-C-R / / [id number] documented as of this encounter Advance Directives Documents on File Type Date Recorded 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
--- OUTSIDE RECORDS SUMMARY | 2023-05-10 19:40 | External Medical Summary | Summary of Care ---
Author Name Unknown Organization [facility] [place] [address] Care Team Providers Care After School Coordinator Name Role Phone Vanita Dunn MD [...] hypertension (HCC) Gastropathy Joselin Dawson, ZAK 132 [facility] [place] [address] Referral ID Status Reason Start Date Expiration Date Visits Requested Visits Authorized [id number] Authorized Specialty Services Required 09/27/2021 99 99 [...] have her medication therapy managed by the [facility] Medication Therapy Disease Management Clinic ([facility]) per established policies, procedures, and protocols. I also certify that this referral may serve as an initiation of service for the management of drug therapy in the above noted patient. [facility] providers will be responsible for scheduling patient visits, obtaining appropriate laboratory studies, and adjusting medication management therapy per patient's need, in addition to those roles spelled out in the clinic policy, procedures, and drug management protocols. I understand that the service provided by the [facility] is voluntary and have informed patient that they can refuse the service at their discretion. I am aware that the [facility] Clinic will provide me with a copy of the patient encounter via my [employer]. I authorize the [facility] Clinic to carry out these activities on my behalf. I consider this program to be a necessary part of the patient's medical care. ZAK Lara Reason for Visit * Reason Comments [facility]: Enrollment Encounter Details Date Type Department Care Team Description 09/27/2021 Home Visit [facility], [facility] [address] [place] [address] Joselin Dawson CRNP 132 [facility] [place] [address] Moderate persistent asthma with exacerbation*; Rhinovirus infection; [...] 120 Vial 11 0 Active nystatin (NYSTOP) 307255 UNIT/GM powder Apply topically to affected area [...] Informant: Pharmacy, Reported on 02/04/2021 Dexcom G6 Cook Sauce Device Use as directed. To test blood [...] Strip 3 1 Active OneTouch Delica Plus [id number] TESTING once daily 100 Each 3 1 [...] Noted Date Food insecurity 09/20/2021 Overview: Per [employer] Pharm[facility] Protocol Chronic diastolic (congestive) heart [...] pain 01/24/2012 01/17/2017 Genetic Sleep Disorder Research Other*[id number] 05/13/2011 04/07/2016 Obstructive sleep apnea 01/18/2011 12/27/19 [...] change and fever. Respiratory: Positive for cough (ASSISTANT BRANCH MANAGER). Negative for shortness of breath and wheezing. [...] normal. Breath sounds: Normal breath sounds. Comments: ASSISTANT BRANCH MANAGER coughing during exam Genitourinary: Comments: Nova draining [...] Harsh coughing during visit. No acute distress. [facility] referral to call and follow up [...] varices without bleeding, unspecified esophageal varices type ([facility]) Referral anemia clinic to assist with monitoring counts. Followed by GI - PHARMACIST MEDS THERAPY MGMT REFERRAL OP 5. Cerebral palsy, unspecified type ([facility]) Spouse assists with care and has caregivers in the home. Hospital bed and candace transfer 6. DM type 2 with diabetic peripheral neuropathy ([facility]) controlledon gabapentin, metformin, novolog and trulicity Followed by endocrinology - [facility] INTERNAL COMMUNICATION OP 7. Iron deficiency anemia, unspecified iron deficiency anemia type - PHARMACIST MEDS THERAPY MGMT REFERRAL OP 8. NG (nonalcoholic steatohepatitis) - PHARMACIST MEDS THERAPY MGMT REFERRAL OP 9. Hepatic cirrhosis, unspecified hepatic cirrhosis type, unspecified whether ascites present ([facility]) - PHARMACIST MEDS THERAPY MGMT REFERRAL OP [...] over ideal weight or BMI > 40) ([facility]) Home Interventions Provided: Oral Medications: Other; prednisone Reinforced current Plan of Care, including self-management and medication regimen Nurse visit recheck tomorrow. ZAK Lara documented in this encounter Plan of Treatment Upcoming Encounters Date Type Specialty Care Team Description 09/28/2021 Pharmacy Pharmacy Clinic, Anemia [address] [facility] [place] [address] Iron deficiency anemia due to chronic blood loss* 09/29/2021 Scheduled Telephone [facility], [address] [place] [address] 09/30/2021 Scheduled Telephone [facility], [address] [place] [address] 09/30/2021 Appointment Radiology 09/30/2021 Appointment Radiology 10/01/2021 Office Visit Family Medicine Vanita Dunn MD [address] [place] [address] 10/04/2021 Home Visit [facility] July Poe RN 132 [facility] [place] [address] 10/20/2021 Immunization/Inject ion Hematology Oncology Nurse, Med [address] [place] [address] 10/22/2021 Office Visit Sleep Disorders Love Francisco DO [address] [place] [address] 10/29/2021 Office Visit [facility]iology [facility]en [facility] [place] [address] 11/02/2021 Imaging Radiology 11/10/2021 Office Visit Pharmacy [facility] [address] [place] [facility] [place] [address] 12/22/2021 Office Visit Endocrinology Alberta Duque PA-C [address] [place] [address] 12/23/2021 Office Visit Gastroenterology Lyssa Stout CRNP [address] [place] [address] 01/04/2022 Office Visit Hematology Oncology Tono Sanchez MD [address] [place] [address] 03/24/2022 Office Visit Pulmonary Reynaldo Marquez MD [address] [place] [address] 06/24/2022 Office Visit Sleep Disorders Love Francisco DO 132 [facility] [place] [address] Scheduled Procedures Name Priority Associated Diagnoses Date/Ti [...] of this encounter Implants Implanted Type Area Architectural Model Maker Device Identifier Shelf Expiration Date Model / Serial / Lot Microtech Sure Clip Implanted:Qty: 2 on 06/03/2020 by Janis Hatch DO at OR [facility] Clip N/A: Colon 04/21/2022 [facility]-F-26-2 35-C-R / / [id number] documented as of this encounter Visit Diagnoses [...] Documents on File Type Date Recorded 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
--- OUTSIDE RECORDS SUMMARY | 2023-05-10 19:41 | External Medical Summary | Summary of Care ---
Author Name Unknown Organization [facility] Address [place] [address] Care Team Providers Care Credit Counselor Name Role Phone Vanita Dunn MD Primary Care Provid er Reason for Visit * Reason Onset Date Comments [facility]: Maintenance 09/27/2021 Encounter Details Date Type Department Care Team Description 09/27/2021 Telephone [facility], [facility] [address] [facility] [place] [address] Joselin Dawson CRNP [facility] [place] [address] [facility]: Maintenance Allergies Active Allergy Reactions Severity Noted Date Comments Adhesive Tape Itching 04/29/2020 Penicillins Rash 02/12/2008 Perflutren Protein A Microsph 2019 Definity-lower back pain documented as of this encounter (statuses as of 09/27/2021) Medications Medication Sig Dispensed Refills Start Date End Date Status albuterol sulfate (PROVENTIL) (2.5 MG/3ML) 0.083% nebulizer solutionIndications: Pulmonary vascular congestion Inhale 1 Vial via nebulizer every 6 hours as needed for Wheezing. 120 Vial 11 10/02/2019 Active nystatin (NYSTOP) 598680 UNIT/GM powder Apply topically to affected area [...] Informant: Pharmacy, Reported on 02/04/2021 Dexcom G6 Functional Director Device Use as directed. To test blood sugars 4 times a day Dx E11.9 1 Each 0 09/14/2020 Active Dexcom G6 Sensor Use as directed. To test blood sugars 4 times a day. Change sensor every 10 days. Dx E11.9 Please dispense 3 boxes for 90 day supply 3 Each 3 09/14/2020 Active Dexcom G6 Transmitter Use as [...] Strip 3 10/29/2020 Active OneTouch Delica Plus [id number] TESTING once daily 100 Each 3 10/29/2020 [...] a day. 10.2 g 1 09/27/2021 Active documented as of this encounter (statuses as of 09/27/2021) Active Problems Problem Noted Date Food insecurity [...] term Vitamin D deficiency 09/26/2013 Lymphedema 03/11/2013 Moderate persistent asthma without compl ication 01/09/2013 Venous stasis dermatitis of both lower e xtremities 05/07/2012 NG (nonalcoholic steatohepatitis) 04/12 HTN, goal below 130/80 03/27/2012 Cerebral palsy 01/24/2012 Spinal stenosis of lumbar region without neurogenic claudication 12/27/2010 Venous insufficiency 01/09/2009 DDD (degenerative disc disease), lumbar Dyslipidemia documented as of this encounter (statuses as of 09/27/2021) Resolved Problems Problem Noted Date Resolved Date [...] Primary osteoarthritis of right knee 03/11/2013 09/13/2021 Asthma exacerbation 01/09/2013 06/07/2016 Cough 01/09/2013 06/07/2016 [...] pain 01/24/2012 01/17/2017 Genetic Sleep Disorder Research Other*[id number] 05/13/2011 04/07/2016 Obstructive sleep apnea 01/18/2011 12/27/19 [...] as of this encounter (statuses as of 09/27/2021) Immunizations Name Administration Dates Next Due COVID-19 [...] Miscellaneous Notes * Telephone Encounter - Marie Dior LPN - 09/27/2021 3:54 PM EST Spoke with Arnold, Pharmacist at [facility] in [place]. Shaina does not have her spironolactone in her pill packs. He states her keeps about four different prescriptions out of the pill packs. Arnold states she has refills remaining for spironolactone. He will reach out to her to see if he can put this in her pill packs since they are currently working on filling them. Routed to care team as . * Telephone Encounter - Dorothy Walker LPN - 09/27/2021 2:17 PM EST Call to pharmacy again Still busy signal * Telephone Encounter - Dorothy Walker LPN - 09/27/2021 1:39 PM EST Attempt to reach pharmacy again Busy signal * Telephone Encounter - Dorothy Walker LPN - 09/27/2021 1:18 PM EST Call to pharmacy They are currently closed (for lunch? Weather?) Will try later * Telephone Encounter - ZAK Lara - 09/27/2021 12:53 PM EST Please call [facility] in [place], --spouse requested a refill on spironolactone but she gets pill packs there??? Are they not in pill packs?? documented in this encounter Plan of Treatment Upcoming Encounters Date Type Specialty Care Team Description 09/28/2021 Home Visit [facility] July Poe RN 132 [place] [address] 09/30/2021 Appointment Radiology 09/30/2021 Appointment Radiology 10/01/2021 Office Visit Family Medicine Vanita Dunn MD [address] [place] [address] 10/04/2021 Home Visit [facility] July Poe RN 132 [place] [address] 10/20/2021 Immunization/Injection Hematology Oncolog y Nurse, Med 4 200 [facility], [place] [address] 10/22/2021 Office Visit Sleep Disorders Love Francisco DO 132 [place] [address] 10/29/2021 Office Visit Cardiology Quyen Canseco CRNP 132 [facility] [place] [address] 11/02/2021 Imaging Radiology 11/10/2021 Office Visit [facility] [address] [place] [address] 12/22/2021 Office Visit Endocrinology Alberta Duque PA-C [address] [place] [address] 12/23/2021 Office Visit Gastroenterology Lyssa Stout CRNP 132 [facility] [place] [address] 01/04/2022 Office Visit Hematology Oncology Tono Sanchez MD 200 [place] [address] 03/24/2022 Office Visit Pulmonary Reynaldo Marquez MD [address] [place], [place] [id number] 06/24/2022 Office Visit Sleep Disorders Love Francisco DO 132 [facility] [place] [address] Scheduled Procedures Name Priority Associated Diagnoses Date/Ti [...] of this encounter Implants Implanted Type Area Crosstie Inspector Device Identifier Shelf Expiration Date Model / Serial / Lot Microtech Sure Clip Implanted:Qty: 2 on 06/03/2020 by Janis Hatch DO at OR [facility] Clip N/A: Colon 04/21/2022 ROC-F-26-2 35-C-R / / [id number] documented as of this encounter Advance Directives Documents on File Type Date Recorded Patient Blood Bank Calendar Control Clerk Expl 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 WILL AND HEALTH CARE POA Power of Foundation Engineer 04/29/2021 12:00 AM TOM R OF MEDICAL OFFICE ASSISTANT HEALTH CARE POA Advanced Directive 04/01/2021 [...] Bustos Spouse Emergency Contact Care Teams Credit Counselor Relationship Specialty Start Date End Date Vanita Dunn MD [address] [place] [address] PCP - General Family Medicine 03/16/21 documented as of this encounter
--- OUTSIDE RECORDS SUMMARY | 2023-05-10 19:41 | External Medical Summary | Summary of Care ---
Author Name Unknown Organization [place] [address] Care Team Providers Care Metal Window Frame Maker Name Role Phone Vanita Dunn MD Primary Care Provid er Reason for Visit * Reason Onset Date Comments Anemia Follow-Up 09/28/2021 Encounter Details Date Type Department Care Team Description 09/28/2021 Pharmacy Pharmacy, [place] [address] [place] [address] Clinic, Anemia [address] [place] [address] Iron deficiency anemia due to chronic blood [...] 120 Vial 11 10/02/2019 Active nystatin (NYSTOP) 197161 UNIT/GM powder Apply topically to affected area [...] Informant: Pharmacy, Reported on 02/04/2021 Dexcom G6 Plugman Device Use as directed. To test blood [...] Strip 3 10/29/2020 Active OneTouch Delica Plus [id number] TESTING once daily 100 Each 3 10/29/2020 [...] catheter dysfunction 02/15/202111/2021 AMS (altered mental status) 02/04/2021 0505/2021 Cardiomegaly [...] pain 01/24/2012 01/17/2017 Genetic Sleep Disorder Research Other*[id number] 05/13/2011 04/07/2016 Obstructive sleep apnea 01/18/2011 12/27/19 [...] as of this encounter Progress Notes * Prakash Washington, [facility] - 09/28/2021 9:24 AM EST Patient Phone Numbers Patient referred by Joselin CRESPO for evaluation of anemia by Anemia Clinic. Review of labs from 09/23/21. Hgb: 7.3g/dL Iron Panel: TSAT 14% ; Ferritin 33ng/mL PLT: 100 K/uL Of note, patient has mild thrombocytopenia and mild macrocytosis. Hgb & retic panel suggestive of continued blood losses resulting in absolute iron deficiency anemia. Patient is being followed by gastroenterology and hematology, anemia clinic to defer treatment recommendations and management of anemia to their respective specialties. Will CC chart to hematology. Anemia clinic to sign off, thank you for allowing us to participate in the care of this patient. Prakash Washington, PharmD, [facility] Clinical Pharmacist 09/28/2021 10:25 AM Lab Results Component Value Date/Time HGB - [facility] 7.3 (L) 09/23/2021 05:24 PM HGB - [facility] 7.6 (L) 09/20/2021 01:18 PM HGB - [facility] 7.7 (L) 09/14/2021 03:22 PM HGB - [facility] 7.5 (L) 09/24/2020 05:16 PM HGB - [facility] 7.2 (L) 09/23/2020 02:42 PM HGB - [facility] 7.9 (L) 08/21/2020 04:35 PM Lab Results Component Value Date/Time HEMOGLOBIN-OUTSIDE LAB 9.2 08/09/2021 12:00 AM HEMOGLOBIN-OUTSIDE LAB 11.4 (A) 08/24/2018 12:00 AM HEMOGLOBIN-OUTSIDE LAB 12.0 07/19/2018 12:00 AM Results for orders placed or performed during the hospital encounter of 09/23/21 IRON SCREEN, INCLUDING TIBC Result Value Ref Range Iron 39 33 - 151 ug/dL Iron Binding Capacity 288 250 - 425 ug/dL Transferrin Saturation Percent 14 (L) 15 - 55 % Results for orders placed or performed in visit on 07/06/21 IRON SCREEN, INCLUDING TIBC Result Value Ref Range Iron 27 (L) 33 - 151 ug/dL Iron Binding Capacity 328 250 - 425 ug/dL Transferrin Saturation Percent 8 (L) 15 - 55 % Results for orders placed or performed in visit on 05/14/21 IRON SCREEN, INCLUDING TIBC Result Value Ref Range Iron 45 33 - 151 ug/dL Iron Binding Capacity 292 250 - 425 ug/dL Transferrin Saturation Percent 15 15 - 55 % No results found for: TRANSFERRIN SAT %-OUTSIDE LAB Lab Results Component Value Date/Time FERRITIN - [facility] 33 09/23/2021 08:40 PM FERRITIN - [facility] 48 07/06/2021 03:32 PM FERRITIN - [facility] 59 05/14/2021 01:08 PM FERRITIN - [facility] 22.5 09/23/2020 02:42 PM FERRITIN - [facility] 19.2 07/05/2020 09:11 AM FERRITIN - [facility] 115.2 04/28/2020 04:37 PM No results found for: FERRITIN-OUTSIDE LAB documented in this encounter Plan of Treatment Upcoming Encounters Date Type Specialty Care Team Description 09/29/2021 Scheduled Telephone [facility], [facility] 132 [facility] [place] [address] 09/30/2021 Scheduled Telephone [facility], [facility] [place] [address] 09/30/2021 Appointment Radiology 09/30/2021 Appointment Radiology 10/01/2021 Office Visit Family Medicine Vanita Dunn MD [address] [place] [address] 10/04/2021 Home Visit [facility] July Poe RN 132 [facility] [place] [address] 10/20/2021 Immunization/Injection Hematology Oncolog y Nurse, Med 4 [address] [place] [address] 10/22/2021 Office Visit Sleep Disorders Love Francisco DO [facility] [address] 10/29/2021 Office Visit Cardiology Quyen Canseco CRNP 132 [place] [address] 11/02/2021 Imaging Radiology 11/10/2021 Office Visit Pharmacy [facility] [address] [place] [address] 12/22/2021 Office Visit Endocrinology Alberta Duque PA-C [address] [place] [address] 12/23/2021 Office Visit Gastroenterology Lyssa Stout CRNP 132 [facility] [place] [address] 01/04/2022 Office Visit Hematology Oncology Tono Sanchez MD 200 [place] [address] 03/24/2022 Office Visit Pulmonary Reynaldo Marquez MD [address] [facility], [place] [address] 06/24/2022 Office Visit Sleep Disorders Love Francisco DO [address] [place] [address] Scheduled Procedures Name Priority Associated Diagnoses Date/Ti [...] of this encounter Implants Implanted Type Area International Representative Device Identifier Shelf Expiration Date Model / Serial / Lot Microtech Sure Clip Implanted:Qty: 2 on 06/03/2020 by Janis Hatch DO at OR [facility] Clip N/A: Colon 04/21/2022 [facility]-F-26-2 35-C-R / / [id number] documented as of this encounter Visit Diagnoses Diagnosis Iron deficiency anemia due to chronic blood loss- Primary Iron deficiency anemia secondary to blood loss (chronic) documented in this encounter Advance Directives Documents on File Type Date Recorded Patient Clinical Account Manager Expl 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 WILL AND HEALTH CARE POA Power of Automatic Furnace Operator 04/29/2021 12:00 AM TOM R OF [facility] CARE POA Advanced Directive 04/01/2021 [...] Agents on File Name Relationship Healthcare Agent [facility] Syed Bustos Spouse Emergency Contact Care Teams Metal Window Frame Maker Relationship Specialty Start Date End Date Vanita Dunn MD [address] [place] [address] PCP - General Family Medicine 03/16/21 documented as of this encounter
--- OUTSIDE RECORDS SUMMARY | 2023-05-10 19:41 | External Medical Summary | Summary of Care ---
Author Name Unknown Organization [place] [address] Care Team Providers Care Medical Equipment Repair Technician Name Role Phone Vanita Dunn MD Primary Care Provid er Reason for Visit * Reason Comments [facility]: Maintenance Encounter Details Date Type Department Care Team Description 09/20/2021 Home Visit [facility], [facility] 132 [facility] [place] [address] July Poe, RN 132 [facility] [place] [address] Allergies Active Allergy Reactions Severity Noted Date [...] 120 Vial 11 10/02/2019 Active nystatin (NYSTOP) 287580 UNIT/GM powder Apply topically to affected area [...] Informant: Pharmacy, Reported on 02/04/2021 Dexcom G6 Plastic Surgeon Device Use as directed. To test blood [...] Strip 3 10/29/2020 Active OneTouch Delica Plus [id number] TESTING once daily 100 Each 10/29/2020 Active [...] for Cough. 30 Capsule 1 09/17/2021 Active Fluticasone-Salmete rol 250-50 MCG/DOSE Inhalation Aerosol Powder Breath Activated (Advair Diskus)Indications: Moderate persistent asthma with acute exacerbation Inhale 1 Puff by mouth 2 times a day. 60 Each 3 07/27/2020 2 Discontinu ed(Patient preference /discontin uation) Lantus SoloStar 100 UNIT/ML Subcutaneous Solution Pen-injector (Insulin Glargine)Indication s:Type 2 diabetes mellitus with hemoglobin A1c goal of less than 7.0% ([facility]) inject 32 units under skin at bedtime 45 mL 3 06/02/2021 2 Discontinu ed(Patient preference /discontin uation) Senna-Docusate Sodium 8.6-50 MG Oral TabletIndications:C onstipation, unspecified constipation type Take 1 Tablet by mouth daily. 90 Tablet 2 07/26/2021 2 Discontinu ed(Patient preference /discontin uation) Bisacodyl 5 MG Oral Tablet Delayed Release (Dulcolax)Indicatio ns:Drug-induced constipation Take 2 Tablets by mouth daily as needed for Constipation. Do not use for more than one week. Do not cut, crush or chew 40 Tablet 1 08/03/2021 2 Discontinu ed(Patient preference /discontin uation) Nitrofurantoin Monohyd Macro 100 MG Oral Capsule (Macrobid) Take 100 mg by mouth 2 times a day. 5 days 10 Capsule 0 09/17/2021 2 Discontinu ed(Medicat ion List Clean Up) Azithromycin 250 MG Oral Tablet (Zithromax Z-Marcus)Indications:B ronchitis, complicated Take two tablets by mouth on first day, then 1 tablet daily until gone 6 Tablet 0 09/17/2021 2 Discontinu ed(Medicat ion List Clean Up) Sulfamethoxazole-Tr imethoprim 800-160 MG Oral Tablet (Bactrim DS)Indications:Acut e cystitis with hematuria Take 1 Tablet by mouth 2 times a day for 10 days. Until gone 20 Tablet 0 09/20/2021 2 Discontinu ed(Patient preference /discontin uation) documented [...] dysfunction 02/15/202111/2021 AMS (altered mental status) 02/04/2021 052 05/2021 [...] pain 01/24/2012 01/17/2017 Genetic Sleep Disorder Research Other*[id number] 05/13/2011 04/07/2016 Obstructive sleep apnea 01/18/2011 12/27/19 [...] Sign Reading Time Taken Comments Blood Pressure 122/68 09/20/2021 4:51 PM EST Pulse 66 09/20/2021 4:51 PM EST Temperature 36.1 C (96.9 F) 09/20/2021 4:51 PM ES T Respiratory Rate 18 09/20/2021 4:51 PM EST Oxygen Saturation 92% 09/20/2021 4:51 PM EST Inhaled Oxygen Concentration - - [...] Progress Notes * July Poe RN - 09/20/2021 4:16 PM EST [facility] Deicer FinisherPrecast Concrete Ironworker Visit Date: 09/20/2021 Time: 4:16 PM Name: Shaina Bustos : 1955 Current Concerns: Pt seen for enrollment to [facility] Saw Dr. Chan at PCP office today for ED f/u- sent for Hgb of 7.7 but was 8.5 when in ED She did have urine showing MRSA, but cg reports that is not new She was prescribed Bactrim and was advised to take a urine in to lab when finished with abx She also had a low BSG of 62 at MD appt today - it is now 187 Pt wears dexcom for blood glucose monitoring Having sinus congestion - has last dose of z-pack today - wants to see ENT if not resolved With z-pack She also has a harsh cough with mucus but unable to see the color. Has only been using nebulizer once a day, some days not at all - advised to use for every 6 hours while with respiratory symptoms Pelvis US ordered and scheduled for Oct d/t vaginal bleeding Physical Exam: BP 122/68 | Pulse 66 | Temp 36.1 C (96.9 F) | Resp 18 | SpO2 92% Pain 0 Physical Exam Constitutional: Appearance: She [...] congestion. Eyes: Negative. Respiratory: Positive for cough (moist, non-productive, frequent). Cardiovascular: Positive for leg swelling. Gastrointestinal: Negative. Endocrine: Negative. Genitourinary: Cline draining clear yellow urine Musculoskeletal: Positive for gait problem (non-ambulatory d/t CP). Skin: Negative. Psychiatric/Behavioral: Negative. Medication Reconciliation: (See medication list) Does patient take medications as ordered: Yes Gets pill packs from [facility] in [place] for most meds - has some in bottles that gives her -cg tries to remind to do nebs also Patient Well Being: PHQ2/9: No questionnaires available. Pt is chairbound and uses svetlana lift for transfers. Denies any falls. States it has been 2 years since she was able to stand d/t her cerebral palsy. Has cg thru [facility] [phone] M-F Advanced Care Planning: No documentation, none on file. Patient's Goals of Care: 1. Feel better 2. Son's wedding in February Reinforcement/Education: DIABETES: -Blood sugar testing schedule: Twice [...] Dosing. and Purspose. Treatment/Plan: Continue meds as prescribed/reviewed Use nebulizer [...] and medication regimen Patient's 'Red Flags': 1. S/s of UTI - Fever, confusion 2. Increased SOB 3. Fever Patient Needs to Remember: Call [facility] at with any new or worsening health concerns or problems, red flag symptoms. Referrals Needed: Other none Follow Up: Patient encouraged to call the intake phone number for all urgent but not emergent issues. Is the patient new to [facility] within the last 30 days? Yes, Is this a Transitions of Care visit? No Provider is in agreement with Plan of Care: Yes Scheduled to follow up with patient in one week with provider and one week after with RNCM. July Poe RN 09/20/2021 4:16 PM documented in this encounter Plan of Treatment Upcoming Encounters Date Type Specialty Care Team Description 09/28/2021 Home Visit [facility] [place] July Poe RN 132 [facility] [place] [address] 09/30/2021 Appointment Radiology 09/30/2021 Appointment Radiology 10/01/2021 Office Visit Family Medicine Vanita Dunn MD [address] [place] [address] 10/04/2021 Home Visit [facility] July Poe RN 132 [place] [address] 10/20/2021 Immunization/Injection Hematology Oncolog y Nurse, Med 4 [address] [facility] [place] [address] 10/22/2021 Office Visit Sleep Disorders Love Francisco DO [address] [place] [address] 10/29/2021 Office Visit Cardiology Quyen Canseco CRNP 132 [place] [address] 11/02/2021 Imaging Radiology 11/10/2021 Office Visit Pharmacy [facility] [address] [place] [address] 12/22/2021 Office Visit Endocrinology Alberta Duque PA-C [address] [place] [address] 12/23/2021 Office Visit Gastroenterology Lyssa Stout CRNP 132 [facility] [place] [address] 01/04/2022 Office Visit Hematology Oncology Tono Sanchez MD 200 [facility] [place] [address] 03/24/2022 Office Visit Pulmonary Reynaldo Marquez MD [address] [place] [id number] 06/24/2022 Office Visit Sleep Disorders Maryam Lovelisa RockwellTracie, DO [address] [place] [address] Scheduled Procedures Name Priority Associated Diagnoses Date/Ti [...] of this encounter Implants Implanted Type Area Beef Cattle Specialist Device Identifier Shelf Expiration Date Model / Serial / Lot Microtech Sure Clip Implanted:Qty: 2 on 06/03/2020 by Janis Hatch DO at OR [facility] Clip N/A: Colon 04/21/2022 [facility]-F-26-2 35-C-R / / [id number] documented as of this encounter Advance Directives Documents on File Type Date Recorded Patient Communications Project Lead 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 LIVING WILL AND HEALTH CARE POA Power [facility] 04/29/2021 12:00 AM [facility] POA Advanced Directive 04/01/2021 1:14 [...] Bustos Spouse Emergency Contact Care Teams Medical Equipment Repair Technician Relationship Specialty Start Date End Date Vanita Dunn MD [address] [facility] [place] [id number] PCP - General Family Medicine 03/16/21 documented as of this encounter"
--- OUTSIDE RECORDS SUMMARY | 2023-05-10 19:41 | External Medical Summary | Summary of Care ---
Author Name Unknown Organization [place] [address] Care Team Providers Care Medical Lab Technologist Name Role Phone Kojo Dunn MD Primary Care Provid er Reason for Visit * Reason Comments eRx-Medication Refill Encounter Details Date Type Department Care Team Description 09/27/2021 Refill Pharmacy, [place] [address] [place] [address] Alexandra Caceres, [address] [place] [address] Allergies Active Allergy Reactions Severity Noted Date [...] 120 Vial 11 0 Active nystatin (NYSTOP) 037656 UNIT/GM powder Apply topically to affected area [...] Informant: Pharmacy, Reported on 02/04/2021 Dexcom G6 Roving Weight Gauger Device Use as directed. To test blood [...] Strip 3 1 Active OneTouch Delica Plus Rlqnxm76Q TESTING once daily 100 Each 3 1 [...] 2 10/02/19 22 Active Dexcom G6 Sensor use as directed to test blood sugar 4 times daily. change sensor every 10 days 3 Each 3 2 Active Dexcom G6 Sensor Use as directed. [...] pain 01/24/2012 01/17/2017 Genetic Sleep Disorder Research Other*[id number] 05/13/2011 04/07/2016 Obstructive sleep apnea 01/18/2011 12/27/19 [...] encounter Miscellaneous Notes * Telephone Encounter - Bunny Adair RPh - 09/27/2021 4:20 PM EST Signed Prescriptions: Disp Refills Dexcom G6 Sensor 3 Each 3 Sig: use as directed to test blood sugar 4 times daily. change sensor every 10 daysAuthorizing Provider: KOJO DUNNOrderingUser: BUNNY ADAIR documented in this encounter Plan of Treatment Upcoming Encounters Date Type Specialty Care Team Description 09/28/2021 [facility] [place] [address] 09/30/2021 Appointment Radiology 09/30/2021 Appointment Radiology 10/01/2021 Office Visit Family Medicine Kojo Dunn MD [address] [place] [address] 10/04/2021 Home Visit [facility] July Poe, RN 132 [facility] [place] [address] 10/20/2021 Immunization/Injection Hematology Oncolog y Nurse, Med [address] [place] [address] 10/22/2021 Office Visit Sleep Disorders Love Francisco DO [address] [place] [address] 10/29/2021 Office Visit Cardiology [facility]en [facility]seco [facility] [place] [address] 11/02/2021 Imaging Radiology 11/10/2021 Office Visit Pharmacy [facility] [address] [place] [address] 12/22/2021 Office Visit Endocrinology Alberta Duque PA-C [address] [facility] [place] [address] 12/23/2021 Office Visit Gastroenterology Lyssa Stout CRNP [facility] [place] [address] 01/04/2022 Office Visit Hematology Oncology Tono Sanchez MD 200 [place] [address] 03/24/2022 Office Visit Pulmonary Reynaldo Marquez MD [address] [place] [address] 06/24/2022 Office Visit Sleep Disorders Love Francisco, DO [address] [place] [address] Scheduled Procedures Name Priority Associated Diagnoses Date/Ti [...] this encounter Implants Implanted Type Area Line Out Man Device Identifier Shelf Expiration Date Model / Serial / Lot Microtech Sure Clip Implanted:Qty: 2 on 06/03/2020 by Janis Hatch DO at OR H Clip N/A: Colon 04/21/2022 [facility]-F-26-2 35-C-R / / [id number] documented as of this encounter Advance Directives Documents on File Type Date Recorded Patient Data Center Project Manager Expl 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 WILL AND HEALTH CARE POA Power of Cane Weigher Helper 04/29/2021 12:00 AM TOM R [facility] POA Advanced Directive 04/01/2021 1:14 PM Advanced [...] File Name Relationship Healthcare Agent [facility] navya Communication Syed Bustos Spouse Emergency Contact Care Teams Medical Lab Technologist Relationship Specialty Start Date End Date Kojo Dunn MD [address] [place] [address] PCP - General Family Medicine 03/16/21 documented as of this encounter
--- OUTSIDE RECORDS SUMMARY | 2023-05-10 19:42 | External Medical Summary | Summary of Care ---
Author Name Unknown Organization [facility] Address [place] [address] Care Team Providers Care Turn Sewer Name Role Phone Vanita Dunn MD Primary Care Provid er Reason for Visit * Reason Onset Date Comments Medication Refill 09/27/2021 Encounter Details Date Type Department Care Team Description 09/27/2021 Refill [facility] [address] [place] [address] Alexandra Caceres [address] [place] [address] Allergies Active Allergy Reactions Severity [...] 120 Vial 11 10/02/2019 Active nystatin (NYSTOP) 281655 UNIT/GM powder Apply topically to affected area [...] Informant: Pharmacy, Reported on 02/04/2021 Dexcom G6 Telegraph And Teletype Operator Device Use as directed. To test [...] Strip 3 10/29/2020 Active OneTouch Delica Plus Rosgff46R TESTING once daily 100 Each 10/29/2020 Active [...] Active Benzonatate 100 MG Oral Capsule ([place] Perlmelia)Indications:B ronchitis, complicated Take 1 Capsule by [...] days. 10 Tablet 0 09/27/2021 2 Active documented as of this encounter [...] pain 01/24/2012 01/17/2017 Genetic Sleep Disorder Research Other*[id number] 05/13/2011 04/07/2016 Obstructive sleep apnea 01/18/2011 12/27/19 [...] Telephone Encounter - Indira Hudson RPh - 09/27/2021 1:53 PM EST Patient gets Dexcom Sensors through DME through [facility] [employer]. Paperwork was faxed to them on 09/20/21. Patient cannot get sensors covered through the pharmacy directly. Will remove this request for Dexcom sensors. If patient prefers to pay out of pocket, let us know and we can send to retail pharmacy. Indira Hudson RPh, Pharm D, BCACP Clinical Pharmacist 09/27/21 1:54 PM * Telephone Encounter - DEVIKA Gifford - 09/27/2021 1:47 PM EST Pending Prescriptions: Disp Refills Dexcom G6 Sensor 3 Each 3 Sig: Use as directed. To test blood sugars 4 times a day. Change sensor every 10 days. Dx E11.9 Please dispense 3 boxes for 90 day supply Last Office/Telemedicine Visit: 09/20/2021 Next Office Visit: 10/01/2021 Scheduled Provider(s): Vanita Dunn MD If no future appointments scheduled, and last appointment is greater than a year ago, please schedule patient for a follow-up appointment Last date the medication was ordered: 09-14-20 Pharmacy: [facility] [id number] Is this request for a controlled [...] Date Type Specialty Care Team Description 09/30/2021 Appointment Radiology 09/30/2021 Appointment Radiology 10/01/2021 Office Visit Family Medicine Vanita Dunn MD [address] [place] [address] 10/04/2021 [facility] Visit [facility] July Poe, RN [address] [facility] [place] [address] 10/20/2021 Immunization/Injection Hematology Oncolog y Nurse, Med 4 [address] [place] [address] 10/22/2021 Office Visit Sleep Disorders Love Francisco DO 132 [facility] [place] [address] 10/29/2021 Office Visit Cardiology Quyen Canseco CRNP 132 [place] [address] 11/02/2021 Imaging Radiology 11/10/2021 Office Visit Pharmacy [address] [address] 12/22/2021 Office Visit Endocrinology Alberta Duque PA-C [address] [place] [address] 12/23/2021 Office Visit [facility]astroenterology [facility] [address] 01/04/2022 Office Visit Hematology Oncology Tono Sanchez MD 200 [place] [address] 03/24/2022 Office Visit Pulmonary Reynaldo Marquez MD [address] [place] [address] 06/24/2022 Office Visit Sleep Disorders Love Francisco, DO [address] [place] [address] Scheduled Procedures Name Priority Associated Diagnoses Date/Ti [...] of this encounter Implants Implanted Type Area Node Js Developer Device Identifier Shelf Expiration Date Model / Serial / Lot Microtech Sure Clip Implanted:Qty: 2 on 06/03/2020 by Janis Hatch DO at OR [facility] Clip N/A: Colon 04/21/2022 [facility]-F-26-2 35-C-R / / [id number] documented as of this encounter Advance Directives Documents on File Type Date Recorded Patient Figure Skater 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 WILL AND HEALTH CARE POA Power of Housing Property Manager 04/29/2021 12:00 AM TOM R OF [facility] POA Advanced Directive 04/01/2021 1:14 [...] Syed Bustos Spouse Emergency Contact Care Teams Turn Sewer Relationship Specialty Start Date End Date Vanita Dunn MD [address] [place] [facility] [place] [address] PCP - General Family Medicine 03/16/21 documented as of this encounter
--- OUTSIDE RECORDS SUMMARY | 2023-05-10 19:42 | External Medical Summary | Summary of Care ---
Author Name Unknown Organization [facility] Address [place] [address] Care Team Providers Care Order Entry Technician Name Role Phone Vanita Dunn MD Primary Care Provid er Reason for Visit * Reason Onset Date Comments [facility]: Maintenance 09/27/2021 Encounter Details Date Type Department Care Team Description 09/27/2021 Telephone [facility] [address] [facility] [place] [address] [facility], Nurse [facility] [address] [facility] [place] [address] [facility]: Maintenance Allergies Active Allergy [...] 120 Vial 11 10/02/2019 Active nystatin (NYSTOP) 402960 UNIT/GM powder Apply topically to affected area [...] Informant: Pharmacy, Reported on 02/04/2021 Dexcom G6 Pest Control Technician Device Use as directed. To test [...] Strip 3 10/29/2020 Active OneTouch Delica Plus Rccioh74G TESTING once daily 100 Each 3 10/29/2020 [...] pain 01/24/2012 01/17/2017 Genetic Sleep Disorder Research Other*[id number] 05/13/2011 04/07/2016 Obstructive sleep apnea 01/18/2011 12/27/19 [...] Telephone Encounter - Jennifer Alexander RN - 09/27/2021 10:51 AM EST Call from patient. [facility] she is scheduled for provider visit this am. [facility] provider may have trouble parking on her road, Sent TT to provider updating on same. Provider will contact patient if any changes in appt. Shannan Alexander RN [facility] Senior System Operator [facility] documented in this encounter Plan of Treatment Upcoming Encounters Date Type Specialty Care Team Description 09/27/2021 Home Visit [facility] Joselin Dawson CRNP [address] [place] [address] 09/30/2021 Appointment Radiology 09/30/2021 Appointment Radiology 10/01/2021 Office Visit Family Medicine [facility] [address] [facility] [address] 10/04/2021 Home Visit [facility] July Poe RN [address] [place] [address] 10/20/2021 Immunization/Injection Hematology Oncolog y Nurse, Med 4 [address] [place] [address] 10/22/2021 Office Visit Sleep Disorders Love Francisco, 132 [facility] [place] [address] 10/29/2021 Office Visit Cardiology [facility] [address] 11/02/2021 Imaging Radiology 11/10/2021 Office Visit Pharmacy [address] [address] 12/22/2021 Office Visit Endocrinology Alberta Duque PA-C [address] [place] [address] 12/23/2021 Office Visit Gastroenterology [facility]sa Stout [facility]NP [address] [facility] [address] 01/04/2022 Office Visit Hematology Oncology Tono Sanchez MD [address] [place] [address] 03/24/2022 Office Visit Pulmonary Reynaldo Marquez MD [address] [place] [address] 06/24/2022 Office Visit Sleep Disorders Love Francisco, 132 [facility] [place] [address] Scheduled Procedures Name Priority Associated Diagnoses Date/Ti [...] this encounter Implants Implanted Type Area Dinkey Skinner Device Identifier Shelf Expiration Date Model / Serial / Lot Microtech Sure Clip Implanted:Qty: 2 on 06/03/2020 by Janis Hatch DO at OR [facility] Clip N/A: Colon 04/21/2022 [facility]-F-26-2 35-C-R / / [id number] documented as of this encounter Advance Directives Documents on File Type Date Recorded 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
--- OUTSIDE RECORDS SUMMARY | 2023-05-10 19:42 | External Medical Summary | Summary of Care ---
Author Name Unknown Organization [facility] Address [place] [address] Care Team Providers Care Sample Dye Mixer Name Role Phone Vanita Dunn MD Primary Care Provid er Reason for Visit * Reason Onset Date Comments [facility]: Acute 09/27/2021 Encounter Details Date Type Department Care Team Description 09/27/2021 Telephone [facility], [facility] 132 [facility] [place] [address] Joselin Dawson CRNP 132 [facility] [place] [address] [facility]: Acute Allergies Active Allergy [...] 120 Vial 11 10/02/2019 Active nystatin (NYSTOP) 160591 UNIT/GM powder Apply topically to affected area [...] Informant: Pharmacy, Reported on 02/04/2021 Dexcom G6 Before School Device Use as directed. To test blood [...] Strip 3 10/29/2020 Active OneTouch Delica Plus Pctrdm12N TESTING once daily 100 Each 3 10/29/2020 [...] pain 01/24/2012 01/17/2017 Genetic Sleep Disorder Research Other*[id number] 05/13/2011 04/07/2016 Obstructive sleep apnea 01/18/2011 12/27/19 [...] Encounter - Dorothy Walker LPN - 09/27/2021 3:35 PM EST Scheduled with RNCM tomorrow at 10am aware * Telephone Encounter - ZAK Lara - 09/27/2021 1:04 PM EST Pt with asthma exac secondary to rhinovirus infection. I sent her prednisone 40mg daily x 5 days. Advised to use neb 4 times daily. SpO2 was 88% so advised to wear oxygen. When placed increased to 92%. --she needs nurse visit in the next 24-48 hours to recheck --also spouse not giving lactulose d/t causing diarrhea. We discussed importance of compliance to prevent high levels ammonia--nurse should follow up he is giving it. --referral to [facility] to follow up phone call in the next 24-48 hours for blood sugars while on pred. documented in this encounter Plan of Treatment Upcoming Encounters Date Type Specialty Care Team Description 09/28/2021 Home Visit [facility] July Poe RN [address] [place] [address] 09/30/2021 Appointment Radiology 09/30/2021 Appointment Radiology 10/01/2021 Office Visit Family Medicine Vanita Dunn MD [address] [place] [address] 10/04/2021 Home Visit [facility] July Poe RN 132 [facility] [place] [address] 10/20/2021 Immunization/Injection Hematology Oncolog y Nurse, Med [address] [place] [facility] [place] [address] 10/22/2021 Office Visit [facility] Disorders Love Francisco DO [facility] [place] [address] 10/29/2021 Office Visit Cardiology Quyen Canseco CRNP 132 [facility] [place] [address] 11/02/2021 Imaging Radiology 11/10/2021 Office Visit Pharmacy [place] [address] [place] [address] 12/22/2021 Office Visit Endocrinology Alberta Duque PA-C [address] [facility] [address] 12/23/2021 Office Visit Gastroenterology Lyssa Stout CRNP [address] [place] [address] 01/04/2022 Office Visit Hematology Oncology Tono Sanchez MD 200 [facility] [address] 03/24/2022 Office Visit Pulmonary Reynaldo Marquez MD [address] [place] [place] [address] 06/24/2022 Office Visit Sleep Disorders Love Francisco DO [address] [place] [address] Scheduled Procedures Name Priority Associated Diagnoses Date/Ti [...] of this encounter Implants Implanted Type Area Pigment Presser Device Identifier Shelf Expiration Date Model / Serial / Lot Microtech Sure Clip Implanted:Qty: 2 on 06/03/2020 by Janis Hatch DO at OR [facility] Clip N/A: Colon 04/21/2022 [facility]-F-26-2 35-C-R / / [id number] documented as of this encounter Advance Directives Documents on File Type Date Recorded 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
--- OUTSIDE RECORDS SUMMARY | 2023-05-10 19:43 | External Medical Summary | Summary of Care ---
Author Name Unknown Organization [place] [address] Care Team Providers Care Chief Financial Officer Name Role Phone Vanita Dunn MD Primary Care Provid er Reason for Visit * Reason Comments Medication Management Encounter Details Date Type Department Care Team Description 09/24/2021 Pharmacy [facility], [facility] [address] [facility] [place] [phone] Pharmacist, [facility] [address] [facility] [place] [address] DM type 2, goal A1C to be determined ([facility])* Allergies Active Allergy Reactions Severity Noted Date Comments Adhesive Tape Itching 04/29/2020 Penicillins Rash 02/12/2008 Perflutren Protein A Microsph 2019 Definity-lower back pain documented as of this encounter (statuses as of 09/24/2021) Medications Medication Sig Dispensed Refills Start Date End Date Status albuterol sulfate (PROVENTIL) (2.5 MG/3ML) 0.083% nebulizer solutionIndications :Pulmonary vascular congestion Inhale 1 Vial via nebulizer every 6 hours as needed for Wheezing. 120 Vial 11 10/02/2019 Active nystatin (NYSTOP) 318712 UNIT/GM powder Apply topically to affected area [...] Informant: Pharmacy, Reported on 02/04/2021 Dexcom G6 Paint And Table Edger Device Use as directed. To test [...] Strip 3 10/29/2020 Active OneTouch Delica Plus Xzgtyt40K TESTING once daily 100 Each 10/29/2020 Active [...] for Cough. 30 Capsule 1 09/17/2021 Active Nitrofurantoin Monohyd Macro 100 MG Oral [...] as of this encounter (statuses as of 09/24/2021) Active Problems Problem Noted Date Food insecurity [...] as of this encounter (statuses as of 09/24/2021) Resolved Problems Problem Noted Date Resolved Date [...] pain 01/24/2012 01/17/2017 Genetic Sleep Disorder Research Other*[id number] 05/13/2011 04/07/2016 Obstructive sleep apnea 01/18/2011 12/27/19 [...] as of this encounter (statuses as of 09/24/2021) Immunizations Name Administration Dates Next Due COVID-19 [...] Progress Notes * Shane Patrick RPh - 09/24/2021 9:05 AM EST [facility] Message received to review medication list to see if any are unnecessary. Spoke to patient's spouseat patient request. It appears most medications are indicated. She has high dose ibuprofen on med list and spouse reports patient took as recent as last night. Highly advised to stop ibuprofen as this can increase bleedrisk in setting of cirrhosis. Spouse agreeable. Message to anemia clinic sent for chart review on options for low TSAT and low hemoglobin. [facility] 09/24/2021,9:19 AM documented in this encounter Plan of Treatment Upcoming Encounters Date Type Specialty Care Team Description 09/27/2021 [facility] Visit [facility] [address] 09/30/2021 Appointment Radiology 09/30/2021 Appointment Radiology 10/01/2021 Office Visit Family Medicine Vanita Dunn MD [address] [place] [address] 10/04/2021 Home Visit [facility] July Poe, RN [address] [place] [address] 10/20/2021 Immunization/Injection Hematology Oncolog y Nurse, Med [address] [place] [address] [place] [address] 10/22/2021 Office Visit Sleep Disorders Love Francisco DO 132 [facility] [place] [address] 10/29/2021 Office Visit Cardiology [facility]en [facility]sec[facility] [address] 11/02/2021 Imaging Radiology 11/10/2021 Office Visit Pharmacy [facility] [address] [place] [address] 12/22/2021 Office Visit Endocrinology Alberta Duque PA-C [address] [place] [address] 12/23/2021 Office Visit Gastroenterology Lyssa Stout CRNP 132 [facility] [place] [address] 01/04/2022 Office Visit Hematology Oncology Tono Sanchez MD 200 [place] [address] 03/24/2022 Office Visit Pulmonary Reynaldo Marquez MD [address] [place] [address] 06/24/2022 Office Visit Sleep Disorders Love Francisco, [address] [place] [address] Scheduled Procedures Name Priority Associated Diagnoses Date/Ti [...] Vaccine (3 - Booster for Moderna series) 06/22/2021 12/21/2020, 11/23/2020 Depression Screening, Annual for Pts [...] this encounter Implants Implanted Type Area Public Relations Account Executive Device Identifier Shelf Expiration Date Model / Serial / Lot Microtech Sure Clip Implanted:Qty: 2 on 06/03/2020 by Janis Hatch DO at OR [facility] Clip N/A: Colon 04/21/2022 [facility]-F-26-2 35-C-R / / [id number] documented as of this encounter Visit Diagnoses Diagnosis DM type 2, goal A1C to be determined (HCC)- Primary Type II or unspecified type diabetes mellitus without mention of complication, not stated as uncontrolled documented in this encounter Advance Directives Documents on File Type Date Recorded 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
--- OUTSIDE RECORDS SUMMARY | 2023-05-10 19:43 | External Medical Summary | Summary of Care ---
Author Name Unknown Organization [place] [address] Care Team Providers Care Beef Grinder Name Role Phone Vanita Dunn MD Primary Care Provid er Reason for Visit * Reason Onset Date Comments COVID-19 Screening 09/24/2021 Encounter Details Date Type Department Care Team Description 09/24/2021 Telephone COVID19 Screening [facility] DEPT CLOSED 06/22/21 [address] [place] [address] [id number], Automated Provider COVID-19 Screening Allergies Active Allergy Reactions Severity Noted Date Comments Adhesive Tape Itching 04/29/2020 Penicillins Rash 02/12/2008 Perflutren Protein A Microsph 2019 Definity-lower back pain documented as of this encounter (statuses as of 09/25/2021) Medications Medication Sig Dispensed Refills Start Date End Date Status albuterol sulfate (PROVENTIL) (2.5 MG/3ML) 0.083% nebulizer solutionIndications: Pulmonary vascular congestion Inhale 1 Vial via nebulizer every 6 hours as needed for Wheezing. 120 Vial 11 10/02/2019 Active nystatin (NYSTOP) 712717 UNIT/GM powder Apply topically to affected area [...] Informant: Pharmacy, Reported on 02/04/2021 Dexcom G6 Credit Assessment Analyst Device Use as directed. To test [...] Strip 3 10/29/2020 Active OneTouch Delica Plus [id number] TESTING once daily 100 Each 3 10/29/2020 [...] as of this encounter (statuses as of 09/25/2021) Active Problems Problem Noted Date Food insecurity [...] as of this encounter (statuses as of 09/25/2021) Resolved Problems Problem Noted Date Resolved Date [...] pain 01/24/2012 01/17/2017 Genetic Sleep Disorder Research Other*[id number] 05/13/2011 04/07/2016 Obstructive sleep apnea 01/18/2011 12/27/19 [...] as of this encounter (statuses as of 09/25/2021) Immunizations Name Administration Dates Next Due COVID-19 [...] Miscellaneous Notes * Telephone Encounter - Yaneth Odom [facility] - 09/25/2021 6:30 PM EST Outreach Attempts IVR Call Sep 24 2021 10:17AM Voicemail - Voicemail IVR Message: Cecy Merritt. This is [employer] calling to let you know you have test results available. You can access this result in your [employer] account under 'Test & Lab Results'. If you are not enrolled in [employer], you can create an account by going to [email or web address] You can also call back at [phone] or we will attempt to reach you later today. documented in this encounter Plan of Treatment Upcoming Encounters Date Type Specialty Care Team Description 09/27/2021 [facility] Visit [facility] Joselin Dawson CRNP [address] [place] [address] 09/30/2021 Appointment Radiology 09/30/2021 Appointment Radiology 10/01/2021 Office Visit [facility] [address] [facility] [address] 10/04/2021 [facility] Visit [facility] July Poe RN [address] [facility] [address] 10/20/2021 Immunization/Injection Hematology Oncolog y Nurse, Med [address] [place] [address] 10/22/2021 Office Visit Sleep Disorders Love Francisco, DO [address] [facility] [place] [address] 10/29/2021 Office Visit Cardiology Quyen Canseco CRNP [address] [facility] [place] [address] 11/02/2021 Imaging Radiology 11/10/2021 Office Visit Pharmacy [address] [address] 12/22/2021 Office Visit Endocrinology Alberta Duque PA-C [address] [place] [address] 12/23/2021 Office Visit Gastroenterology Lyssa Stout CRNP [address] [facility] [place] [address] 01/04/2022 Office Visit Hematology Oncology Tono Sanchez MD [address] [place] [address] 03/24/2022 Office Visit Pulmonary Reynaldo Marquez MD [address] [place] [phone] 06/24/2022 Office Visit [facility] Love Francisco[facility] [place] [address] Scheduled Procedures Name Priority Associated Diagnoses Date/Ti [...] this encounter Implants Implanted Type Area Legal Librarian Device Identifier Shelf Expiration Date Model / Serial / Lot Microtech Sure Clip Implanted:Qty: 2 on 06/03/2020 by Janis Hatch DO at OR [facility] Clip N/A: Colon 04/21/2022 ROCC-F-26-2 35-C-R / / [id number] documented as of this encounter Advance Directives Documents on File Type Date Recorded Patient Contingents Supervisor 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 AND HEALTH CARE POA Power of Motor Overhauler 04/29/2021 12:00 AM TOM R OF [facility] POA Advanced Directive 04/01/2021 1:14 [...] Syed Bustos Spouse Emergency Contact Care Teams Beef Grinder Relationship Specialty Start Date End Date Vanita Dunn MD [address] [place], [place] [phone] PCP - General Family Medicine 03/16/21 documented as of this encounter
--- OUTSIDE RECORDS SUMMARY | 2023-05-10 19:43 | External Medical Summary | Summary of Care ---
Author Name Unknown Organization [place] [address] Care Team Providers Care Wood Milling Machine Tender Name Role Phone Vanita Dunn MD Primary Care Provid er Reason for Visit * Reason Comments Medication Management Encounter Details Date Type Department Care Team Description 09/24/2021 Pharmacy [facility] [address] [facility] [place] [phone] Pharmacist, [facility] [address] [facility] [place] [address] DM type 2, goal A1C to be determined ([facility])*; Iron deficiency anemia due to chronic blood [...] 120 Vial 11 10/02/2019 Active nystatin (NYSTOP) 327771 UNIT/GM powder Apply topically to affected area [...] Informant: Pharmacy, Reported on 02/04/2021 Dexcom G6 Quarter Folder Device Use as directed. To test [...] Strip 3 10/29/2020 Active OneTouch Delica Plus Zsympf51W TESTING once daily 100 Each 10/29/2020 Active [...] pain 01/24/2012 01/17/2017 Genetic Sleep Disorder Research Other*[id number] 05/13/2011 04/07/2016 Obstructive sleep apnea 01/18/2011 12/27/19 [...] as of this encounter Progress Notes * Ashu Patrick RPh - 09/24/2021 4:58 PM EST Iron labs added. Spoke to Natali at [facility] to make aware of add-ons. [facility] 09/24/2021,4:58 PM * Ashu Patrick RPh - 09/24/2021 9:05 AM EST [...] options for low TSAT and low hemoglobin. Ashu Patrick RPh [facility] 09/24/2021,9:19 AM documented in this encounter Miscellaneous Notes * Addendum Note - Ashu Patrick RPh - 09/24/2021 4:58 PM EST Addended by: ASHU PATRICK on: 09/24/2021 04:58 PM Modules accepted: Orders documented in this encounter Plan of Treatment Upcoming Encounters Date Type Specialty Care Team Description 09/27/2021 Home Visit [facility] Joselin Dawson CRNP [address] [place] [address] 09/30/2021 Appointment Radiology 09/30/2021 Appointment Radiology 10/01/2021 Office Visit Family Medicine Vanita Dunn MD [address] [place] [address] 10/04/2021 Home Visit [facility] July Poe RN [address] [place] [address] 10/20/2021 Immunization/Injection Hematology Oncolog y Nurse, Med 4 [facility] [address] 10/22/2021 Office Visit Sleep Disorders Love Francisco DO [address] [place] [address] 10/29/2021 Office Visit Cardiology Quyen Canseco CRNP [address] [place] [address] 11/02/2021 Imaging Radiology 11/10/2021 Office Visit Pharmacy [facility] [address] [place] [address] 12/22/2021 Office Visit Endocrinology Alberta Duque PA-C [address] [place] [address] 12/23/2021 Office Visit Gastroenterology Lyssa Stout CRNP 132 [facility] [place] [address] 01/04/2022 Office Visit Hematology Oncology Tono Sanchez MD [address] [place] [address] 03/24/2022 Office Visit Pulmonary Reynaldo Marquez MD [address] [place] [address] 06/24/2022 Office Visit Sleep Disorders Love Francisco DO 132 [facility] [place] [address] Scheduled Orders Name Type Priority Associated Diagnoses Orde r Schedule IRON SCREEN, INCLUDING TIBC Lab Routine Iron deficiency anemia due to chronic blood loss Expected: 09/24/2021 (Approximate), Expires: 10/25/2021 FERRITIN Lab Routine Iron deficiency anemia due to chronic blood loss Expected: 09/24/2021 (Approximate), Expires: 10/25/2021 RETICULOCYTE PANEL Lab Routine Iron deficiency anemia due to chronic blood loss Expected: 09/24/2021 (Approximate), Expires: 10/25/2021 Scheduled Procedures Name Priority Associated Diagnoses Date/Ti [...] of this encounter Implants Implanted Type Area Professional Organizer Device Identifier Shelf Expiration Date Model / Serial / Lot Microtech Sure Clip Implanted:Qty: 2 on 06/03/2020 by Janis Hatch DO at OR [facility] Clip N/A: Colon 04/21/2022 ROCC-F-26-2 35-C-R / / [id number] documented as of this encounter Visit Diagnoses Diagnosis DM type 2, goal A1C to be determined (HCC)- Primary Type II or unspecified type diabetes mellitus without mention of complication, not stated as uncontrolled 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 (chronic) documented in this encounter Advance Directives Documents on File Type Date Recorded 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
--- OUTSIDE RECORDS SUMMARY | 2023-05-10 19:43 | External Medical Summary | Summary of Care ---
Author Name Unknown Organization [place] [address] Care Team Providers Care Liquor Gallery Operator Name Role Phone Vanita Dunn MD Primary Care Provid er Reason for Visit * Reason Onset Date Comments COVID-19 Screening 09/25/2021 Encounter Details Date Type Department Care Team Description 09/25/2021 Telephone COVID19 Screening [facility] DEPT CLOSED 06/22/21 [address] [place] [id number], Automated Provider COVID-19 Screening Allergies Active Allergy Reactions Severity Noted Date Comments Adhesive Tape Itching 04/29/2020 Penicillins Rash 02/12/2008 Perflutren Protein A Microsph 2019 Definity-lower back pain documented as of this encounter (statuses as of 09/26/2021) Medications Medication Sig Dispensed Refills Start Date End Date Status albuterol sulfate (PROVENTIL) (2.5 MG/3ML) 0.083% nebulizer solutionIndications: Pulmonary vascular congestion Inhale 1 Vial via nebulizer every 6 hours as needed for Wheezing. 120 Vial 11 10/02/2019 Active nystatin (NYSTOP) 907785 UNIT/GM powder Apply topically to affected area [...] Informant: Pharmacy, Reported on 02/04/2021 Dexcom G6 Property Custodian Device Use as directed. To test blood [...] Strip 3 10/29/2020 Active OneTouch Delica Plus Qcuszw71A TESTING once daily 100 Each 3 10/29/2020 [...] as of this encounter (statuses as of 09/26/2021) Active Problems Problem Noted Date Food insecurity [...] as of this encounter (statuses as of 09/26/2021) Resolved Problems Problem Noted Date Resolved Date [...] pain 01/24/2012 01/17/2017 Genetic Sleep Disorder Research Other*[id number] 05/13/2011 04/07/2016 Obstructive sleep apnea 01/18/2011 12/27/19 [...] as of this encounter (statuses as of 09/26/2021) Immunizations Name Administration Dates Next Due COVID-19 [...] Notes * Telephone Encounter - Covid Results [facility] - 09/26/2021 2:14 PM EST Outreach Attempts IVR Call Sep 25 2021 10:28AM Answered - Success Results COVID: Negative Flu: Negative RSV: Negative IVR Message: Cecy Merritt. Your tests from 09/23/2021 00:00:00 for COVID-19, Flu, and RSV all came back negative.This means you are NOT infected with any of these viruses. If your cold/flu symptoms last longer than 7 days or get worse, contact your primary care physician. If you don't have a primary care physician, go to the nearest [email or web address] or urgent care clinic. To establish care with a [facility] provider, please call [phone]- [phone]. Practice social distancing and good hand hygiene to keep yourself and others safe. Your results are also available for your reference in your [employer] account under 'Test & Lab Results.' If you are not enrolled in [employer], you can create an account by going to [email or web address]. You will also receive a letter in the mail with your results. If you are a [facility] staff member or employee, when you receive your result, please call [employer] [employer] between 7 a.m. and 4 p.m. at [phone]. Notify them of your test results and for instructions on returning to work after your quarantine period. Press 1 if you would like to speak with a nurse, press 2 to hear this message again. documented in this encounter Plan of Treatment Upcoming Encounters Date Type Specialty Care Team Description 09/27/2021 Home Visit [facility] Joselin Dawson CRNP [address] [facility] [place] [address] 09/30/2021 Appointment Radiology 09/30/2021 Appointment Radiology 10/01/2021 Office Visit Family Medicine Vanita Dunn MD [address] [place] [address] 10/04/2021 Home Visit [facility] July Poe RN [address] [facility] [place] [address] 10/20/2021 Immunization/Injection Hematology Oncolog y Nurse, Med [address] [facility] [place] [address] 10/22/2021 Office Visit [facility] [place] [address] 10/29/2021 Office Visit Cardiology Quyen Canseco CRNP [address] [facility] [place] [address] 11/02/2021 Imaging Radiology 11/10/2021 Office Visit Pharmacy [facility] [address] [place] [address] 12/22/2021 Office Visit Endocrinology Alberta Duque PA-C [address] [place] [address] 12/23/2021 Office Visit Gastroenterology Lyssa Stout CRNP [address] [place] [address] 01/04/2022 Office Visit Hematology Oncology Tono Sanchez MD [address] [facility] [place] [address] 03/24/2022 Office Visit Pulmonary Reynaldo Marquez MD [address] [place], [place] [address] 06/24/2022 Office Visit Sleep Disorders Love Francisco DO [address] [place] [address] Scheduled Procedures Name Priority Associated Diagnoses Date/Ti [...] of this encounter Implants Implanted Type Area Relief Master Device Identifier Shelf Expiration Date Model / Serial / Lot Microtech Sure Clip Implanted:Qty: 2 on 06/03/2020 by Janis Hatch DO at OR [facility] Clip N/A: Colon 04/21/2022 [facility]-F-26-2 35-C-R / / [id number] documented as of this encounter Advance Directives Documents on File Type Date Recorded Patient Home Health Care Case Manager 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 LIVING WILL AND HEALTH CARE POA Power [employer] 04/29/2021 12:00 AM TOM Elizabeth [facility] Advanced Directive 04/01/2021 1:14 PM [...] File Name Relationship Healthcare Agent [facility] p Communication Syed Bustos Spouse Emergency Contact Care Teams Liquor Gallery Operator Relationship Specialty Start Date End Date Vanita Dunn MD [address] [place] [address] PCP - General Family Medicine 03/16/21 documented as of this encounter
--- OUTSIDE RECORDS SUMMARY | 2023-05-10 19:44 | External Medical Summary ---
Author Name Unknown Address Unknown Organization K1F:LABORATORY [facility] - [address] [place] [address] Laboratory Report Ordering Provider Test Date Status MARGIE DANIELSON 09/23/2021 18:38:41 Final Observation Date Value Abnormality Reference (Units ) Status Color of Urine by Auto 09/23/2021 18:38:41 Yellow Light Yellow, Yellow, Dark Yellow Final Clarity, Urine 09/23/2021 18:38:41 Slightly Cloudy Abnormal Clear Final Glucose [Mass/volume] in Urine by Automated test strip 09/23/2021 18:38:41 Negative Negative (mg/dL) Final Bilirubin.total [Presence] in Urine by Automated test strip 09/23/2021 18:38:41 Negative Negative Final Ketones [Mass/volume] in Urine by Automated test strip 09/23/2021 18:38:41 Negative Negative (mg/dL) Final Specific gravity, Urine 09/23/2021 18:38:41 1.007 1.003-1.030 Final Hemoglobin [Presence] in Urine by Automated test strip 09/23/2021 18:38:41 Small Abnormal Negative Final pH, Urine 09/23/2021 18:38:41 6.0 5.0-7.5 (Units) Final Protein [Mass/volume] in Urine by Automated test strip 09/23/2021 18:38:41 Negative Negative (mg/dL) Final Urobilinogen [Mass/volume] in Urine by Automated test strip 09/23/2021 18:38:41 0.2 0.2, 1.0 (mg/dL) Final Nitrite [Presence] in Urine by Automated test strip 09/23/2021 18:38:41 Negative Negative Final Leukocyte esterase [Presence] in Urine by Automated test strip 09/23/2021 18:38:41 Small Abnormal Negative Final Performing Location LABORATORY [facility] - [address] [place] [address]
--- OUTSIDE RECORDS SUMMARY | 2023-05-10 19:44 | External Medical Summary ---
Author Name Unknown Address Unknown Organization K1F:LAB[facility]ATORY [facility] - [address] [place] [address] Laboratory Report Ordering Provider Test Date Status WALLY WAKEFIELDIMANI 09/23/2021 20:40:40 Final Observation Date Value Abnormality Reference (Units ) Status Iron 09/23/2021 20:40:40 39 33-151 (ug/dL) Final Iron-binding capacity 09/23/2021 20:40:40 288 250-425 (ug/dL) Final Transferrin Sat % 09/23/2021 20:40:40 14 Below low normal 15-55 (%) Final Performing Location LABORATORY [facility] - [address] [place] [address]
--- OUTSIDE RECORDS SUMMARY | 2023-05-10 19:44 | External Medical Summary ---
Author Name Unknown Address Unknown Organization K1F:LABORATORY [facility] - [address] [place] [address] Laboratory Report Ordering Provider Test Date Status MARGIE DANIELSON 09/23/2021 17:24:48 Final Observation Date Value Abnormality Reference (Units ) Status Albumin 09/23/2021 17:24:48 2.9 Below low normal 3.8-5.0 (g/dL) Final AST (Aspartate aminotransferase) 09/23/2021 17:24:48 57 Above high normal 10-35 (U/L) Final Alk Phos 09/23/2021 17:24:48 134 Above high normal 35-130 (U/L) Final ALT (Alanine aminotransferase) 09/23/2021 17:24:48 49 Above high normal 10-35 (U/L) Final Bilirubin, Total 09/23/2021 17:24:48 1.4 Above high normal <=1.2 (mg/dL) Final Bilirubin, Direct 09/23/2021 17:24:48 0.6 Above high normal 0.0-0.3 (mg/dL) Final Protein 09/23/2021 17:24:48 6.3 6.0-8.3 (g/dL) Final Performing Location LABORATORY [facility] - [address] [place] [address]
--- OUTSIDE RECORDS SUMMARY | 2023-05-10 19:44 | External Medical Summary ---
Author Name Unknown Address Unknown Organization K1F:LABORATORY [facility] - [facility] [place] [address] Laboratory Report Ordering Provider Test Date Status MARGIE DANIELSON 09/23/2021 18:38:41 Final Observation Date Value Abnormality Reference (Units ) Status RBC, Urine 09/23/2021 18:38:41 3-5 Abnormal 0-2 (/HPF) Final WBC, Urine 09/23/2021 18:38:41 10-19 Abnormal 0-2 (/HPF) Final Bacteria [#/area] in Urine sediment by Microscopy high power field 09/23/2021 18:38:41 51-100 Abnormal 0-25 (/HPF) Final Epithelial cells.squamous [#/area] in Urine sediment by Microscopy high power field 09/23/2021 18:38:41 Many Abnormal None (/HPF) Final Performing Location LABORATORY [facility] - [address] [place] [address]
--- OUTSIDE RECORDS SUMMARY | 2023-05-10 19:44 | External Medical Summary ---
Author Name Unknown Address Unknown Organization K01:LABORATORY [facility] - [address] [place] [address] Laboratory Report Ordering Provider Test Date Status SHERYL WAKEFIELD 09/23/2021 20:40:40 Final Observation Date Value Abnormality Reference (Units ) Status Ferritin 09/23/2021 20:40:40 33 13-150 (ng /mL) Final Performing Location LABORATORY [facility] - [address] [place] [address]
--- OUTSIDE RECORDS SUMMARY | 2023-05-10 19:44 | External Medical Summary ---
Author Name Unknown Address Unknown Organization K1F:LABORATORY [facility] - [place] [address] Laboratory Report Ordering Provider Test Date Status MARGIE DANIELSON 09/23/2021 20:40:40 Final Observation Date Value Abnormality Reference (Units ) Status Troponin T 09/23/2021 20:40:40 42 Above high normal < =14 (ng/L) Final Performing Location LABORATORY [facility] - [address] [place] [address]
--- OUTSIDE RECORDS SUMMARY | 2023-05-10 19:44 | External Medical Summary ---
Author Name Unknown Address Unknown Organization K1F:LABORATORY [facility] - [address] [place] [address] Laboratory Report Ordering Provider Test Date Status MARGIE DANIELSON 09/23/2021 17:24:48 Final Observation Date Value Abnormality Reference (Units ) Status BUN 09/23/2021 17:24:48 12 6-20 (mg/dL) Final Creatinine 09/23/2021 17:24:48 0.8 0.5-1.0 (mg/dL) Final Glomerular filtration rate/1.73 sq M.predicted [Volume Rate/Area] in Serum, Plasma or Blood by Creatinine-based formula (CKD-EPI) 09/23/2021 17:24:48 84 >=60 (mL/min) Final Performing Location LABORATORY [facility] - [address] [place] [address]
--- OUTSIDE RECORDS SUMMARY | 2023-05-10 19:44 | External Medical Summary ---
Author Name Unknown Address Unknown Organization K1F:LABORATORY [facility] - [address] [facility] [place] [address] Laboratory Report Ordering Provider Test Date Status MARGIE DANIELSON 09/23/2021 17:24:46 Final Observation Date Value Abnormality Reference (Units ) Status SYNC LEUKOCYTES IN BLOOD BY AUTOMATED COUNT 09/23/2021 17:24:46 4.70 4.00-10.80 (K/uL) Final Neutrophils/100 leukocytes in Blood by Manual count 09/23/2021 17:24:46 63.0 40.0-75.0 (%) Final Lymphocytes/100 leukocytes in Blood by Manual count 09/23/2021 17:24:46 16.0 Below low normal 18.0-42.0 (%) Final Monocytes/100 leukocytes in Blood by Manual count 09/23/2021 17:24:46 9.0 1.0-11.0 (%) Final Eosinophils/100 leukocytes in Blood by Manual count 09/23/2021 17:24:46 10.0 Above high normal 0.0-6.0 (%) Final Basophils/100 leukocytes in Blood by Manual count 09/23/2021 17:24:46 2.0 0.0-2.0 (%) Final Neutrophils [#/volume] in Blood by Manual count 09/23/2021 17:24:46 2.96 1.80-7.70 (K/uL) Final Lymphocytes [#/volume] in Blood by Manual count 09/23/2021 17:24:46 0.75 Below low normal 1.00-4.80 (K/uL) Final Monocytes [#/volume] in Blood by Manual count 09/23/2021 17:24:46 0.42 0.00-1.10 (K/uL) Final Eosinophils [#/volume] in Blood by Manual count 09/23/2021 17:24:46 0.47 0.00-0.70 (K/uL) Final Basophils [#/volume] in Blood by Manual count 09/23/2021 17:24:46 0.09 0.00-0.20 (K/uL) Final Hypochromia [Presence] in Blood by Light microscopy 09/23/2021 17:24:46 Moderate Abnormal None Seen Final Ovalocytes [Presence] in Blood by Light microscopy 09/23/2021 17:24:46 Few Abnormal None Seen Final Polychromasia [Presence] in Blood by Light microscopy 09/23/2021 17:24:46 Slight Abnormal None Seen Final Target cells [Presence] in Blood by Light microscopy 09/23/2021 17:24:46 Few Abnormal None Seen Final Performing Location LABORATORY [facility] - [address] [place] [address]
--- OUTSIDE RECORDS SUMMARY | 2023-05-10 19:44 | External Medical Summary | Summary of Care ---
Author Name Unknown Organization [facility] Address [place] [address] Care Team Providers Care Career Discovery Teacher Name Role Phone Vanita Dunn MD Primary Care Provid er Reason for Visit * Reason Onset Date Comments [facility]: Maintenance 09/23/2021 Encounter Details Date Type Department Care Team Description 09/23/2021 Telephone [facility], [facility] [address] [facility] [place] [id number] [facility], Nurse [facility] [address] [facility] [place] [address] [facility]: Maintenance Allergies Active Allergy Reactions Severity Noted Date Comments Adhesive Tape Itching 04/29/2020 Penicillins Rash 02/12/2008 Perflutren Protein A Microsph 2019 Definity-lower back pain documented as of this encounter (statuses as of 09/23/2021) Medications Medication Sig Dispensed Refills Start Date End Date Status albuterol sulfate (PROVENTIL) (2.5 MG/3ML) 0.083% nebulizer solutionIndications: Pulmonary vascular congestion Inhale 1 Vial via nebulizer every 6 hours as needed for Wheezing. 120 Vial 11 10/02/2019 Active nystatin (NYSTOP) 975506 UNIT/GM powder Apply topically to affected area [...] Informant: Pharmacy, Reported on 02/04/2021 Dexcom G6 Hospice Case Manager Device Use as directed. To test [...] Strip 3 10/29/2020 Active OneTouch Delica Plus [id number] TESTING once daily 100 Each 3 10/29/2020 [...] for pain 30 Tab 3 05/25/2021 Active Spironolactone 25 MG Oral Tablet (Aldactone) [...] swelling). EDEMA 30 Tablet 2 09/16/2021 Active Nitrofurantoin Monohyd Macro 100 MG Oral Capsule (Macrobid) Take 100 mg by mouth 2 times a day. 5 days 10 Capsule 0 09/17/2021 Active Benzonatate 100 MG Oral Capsule (Tessalon Perles)Indications:B ronchitis, complicated Take 1 Capsule by mouth 3 times a day as needed for Cough. 30 Capsule 1 09/17/2021 Active Azithromycin 250 MG Oral Tablet (Zithromax Z-Marcus)Indications:Br onchitis, complicated Take two tablets by mouth on first day, then 1 tablet daily until gone 6 Tablet 0 09/17/2021 Active documented as of this encounter (statuses as of 09/23/2021) Active Problems Problem Noted Date Food insecurity [...] as of this encounter (statuses as of 09/23/2021) Resolved Problems Problem Noted Date Resolved Date [...] pain 01/24/2012 01/17/2017 Genetic Sleep Disorder Research Other*[id number] 05/13/2011 04/07/2016 Obstructive sleep apnea 01/18/2011 12/27/19 [...] as of this encounter (statuses as of 09/23/2021) Immunizations Name Administration Dates Next Due COVID-19 [...] Telephone Encounter - Pam Carr RN - 09/23/2021 3:12 PM EST Pt in the ED at [facility]. Disposition pending. TT sent to [facility] on duty with request for dispostion and to assist with dc planning. documented in this encounter Plan of Treatment Upcoming Encounters Date Type Specialty Care Team Description 09/27/2021 Home Visit [facility] Joselin Dawson CRNP [address] [place] [address] 09/30/2021 Appointment Radiology 09/30/2021 Appointment Radiology 10/01/2021 Office Visit Family Medicine Vanita Dunn MD [address] [place] [address] 10/04/2021 Home Visit [facility] July Poe RN [address] [place] [address] 10/20/2021 Immunization/Injection Hematology Oncolog y Nurse, Med [address] [place] [address] 10/22/2021 Office Visit Sleep Disorders Love Francisco, DO [facility] [address] 11/02/2021 Imaging Radiology 11/10/2021 Office Visit Pharmacy [facility] [address] [place] [address] 12/22/2021 Office Visit Endocrinology Alberta Duque PA-C [address] [place] [address] 12/23/2021 Office Visit Gastroenterology [facility] Stout CRNP [address] [facility] [address] 01/04/2022 Office Visit Hematology Oncology Tono Sanchez MD [address] [place] [address] 03/24/2022 Office Visit Pulmonary Reynaldo Marquez MD [address] [place] [address] 06/24/2022 Office Visit Sleep Disorders Love Francisco, DO [address] [facility] [place] [address] Scheduled Procedures Name Priority Associated Diagnoses Date/Ti me ESOPHAGOGASTRODUODENOSCOPY ( EGD), FLEXIBLE, TRANSORAL, DIAGNOSTIC Recall Esophagitis COLONOSCOPY FLEXIBLE PROXIMAL DIAGNOSTIC Recall History of colonic polyps Health Maintenance Due Date Last Done Comments DIABETES-EYE EXAM 06/12/2019 06/12/2018, , 06/12/2018, Additional history exists Dexa Scan 2020 Zoster Vaccines (3 of 3) 06/23/2020 04/28/2020, 11/11 COVID-19 Vaccine (3 - Booster for Moderna series) 06/22/2021 12/21/2020, 11/23/2020 Depression Screening, Annual for Pts 12 and Over 07/27/2021 07/27/2020, 12/09/2015, 10/20/2014 DIABETES-HGBA1C EVERY 6 MONTHS 02/17/2022 08/19/2021, 06/10/2021, 03/08/2021, Additional history exists DIABETES-FOOT EXAM 04/05/2022 04/05/2021, 0 11/06/2019, 01/09/2019, Additional history exists DIABETES-URINE ALBUMIN/CREATININE EVERY 12 MONTHS 04/16/2022 04/16/2021, 03/31/2021, 03/22/2021, Additional history exists Yearly B-12 07/06/2022 07/06/2021, [...] this encounter Implants Implanted Type Area Public Health Aide Device Identifier Shelf Expiration Date Model / Serial / Lot [employer] Sure Clip Implanted:Qty: 2 on 06/03/2020 by Janis Hatch DO at OR [facility] Clip N/A: Colon 04/21/2022 [id number]-F-[id number] 35-C-R / / [id number] documented as of this encounter Advance Directives Documents on File Type Date Recorded Patient Dipper And Baker 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 WILL AND HEALTH CARE POA Power of Codifier 04/29/2021 12:00 AM TOM R OF POT ROOM [facility] POA Advanced Directive 04/01/2021 1:14 [...] Syed Bustos Spouse Emergency Contact Care Teams Career Discovery Teacher Relationship Specialty Start Date End Date Vanita Dunn MD [address] [place] [address] PCP - General Family Medicine 03/16/21 documented as of this encounter
--- OUTSIDE RECORDS SUMMARY | 2023-05-10 19:44 | External Medical Summary ---
Author Name Unknown Address Unknown Organization K1F:LABORATORY [facility] - [address] [place] [address] Laboratory Report Ordering Provider Test Date Status MARGIE DANIELSON 09/23/2021 17:24:46 Final Observation Date Value Abnormality Reference (Units ) Status WBC, Total 09/23/2021 17:24:46 4.70 4.00-10.80 (K/uL) Final RBC 09/23/2021 17:24:46 2.60 Below low normal 3.85-5.15 (M/uL) Final Hemoglobin 09/23/2021 17:24:46 7.3 Below low normal 12.0-15.3 (g/dL) Final HCT 09/23/2021 17:24:46 25.7 Below low normal 36.0-45.2 (%) Final MCV 09/23/2021 17:24:46 98.8 Above high normal 81.5-97.5 (fL) Final MCH 09/23/2021 17:24:46 28.1 27.0-34.0 (pg) Final MCHC 09/23/2021 17:24:46 28.4 Below low normal 32.0-36.0 (g/dL) Final RDW 09/23/2021 17:24:46 20.3 Above high normal 11.5-15.5 (%) Final MPV 09/23/2021 17:24:46 13.2 Above high normal 6.6-11.1 (fL) Final Nucleated erythrocytes/100 leukocytes [Ratio] in Blood by Automated count 09/23/2021 17:24:46 0 <=0 (/100 WBCs) Final Platelets 09/23/2021 17:24:46 100 Below low normal 140-400 (K/uL) Final Performing Location LAB[facility]ATORY [facility] - [address] [place] [address]
--- OUTSIDE RECORDS SUMMARY | 2023-05-10 19:44 | External Medical Summary ---
Author Name Unknown Address Unknown Organization K1F:LAB[facility]ATORY [facility] - [address] [place] [address] Laboratory Report Ordering Provider Test Date Status MARGIE DANIELSON 09/23/2021 18:14:57 Final Observation Date Value Abnormality Reference (Units ) Status Ammonia 09/23/2021 18:14:57 90 Above upper panic limits 11-35 (umol/L) Final Performing Location LABORATORY [facility] - [address] [place] [address]
--- OUTSIDE RECORDS SUMMARY | 2023-05-10 19:44 | External Medical Summary ---
Author Name Unknown Address Unknown Organization K1F:LAB[facility]ATORY [facility] - [address] [place] [address] Laboratory Report Ordering Provider Test Date Status MARGIE DANIELSON 09/23/2021 17:25:58 Final Observation Date Value Abnormality Reference (Units ) Status Adenovirus DNA [Presence] in Nasopharynx by JANY with non-probe detection 09/23/2021 17:25:58 Negative Negative Final Human coronavirus 229E RNA [Presence] in Nasopharynx by JANY with non-probe detection 09/23/2021 17:25:58 Negative Negative Final Human coronavirus HKU1 RNA [Presence] in Nasopharynx by JANY with non-probe detection 09/23/2021 17:25:58 Negative Negative Final Human coronavirus NL63 RNA [Presence] in Nasopharynx by JANY with non-probe detection 09/23/2021 17:25:58 Negative Negative Final Human coronavirus OC43 RNA [Presence] in Nasopharynx by JANY with non-probe detection 09/23/2021 17:25:58 Negative Negative Final SARS-CoV-2 (COVID-19) RNA [Presence] in Nasopharynx by JANY with non-probe detection 09/23/2021 17:25:58 Negative Negative Final Human metapneumovirus RNA [Presence] in Nasopharynx by JANY with non-probe detection 09/23/2021 17:25:58 Negative Negative Final Rhinovirus+Enterovirus RNA [Presence] in Nasopharynx by JANY with non-probe detection 09/23/2021 17:25:58 Positive Abnormal Negative Final Performing Location LAB[facility]ATORY [facility] - [address] [place] [address]
--- OUTSIDE RECORDS SUMMARY | 2023-05-10 19:44 | External Medical Summary ---
Author Name Unknown Address Unknown Organization K1F:LABORATORY [facility] - [facility] [place] [address] Laboratory Report Ordering Provider Test Date Status MARGIE DANIELSON 09/23/2021 17:36:00 Final Observation Date Value Abnormality Reference (Units ) Status Bacteria identified in Unspecified specimen by Culture 09/23/2021 17:36:00 No growth Final Performing Location LABORATORY [facility] - [address] [place] [address]
--- OUTSIDE RECORDS SUMMARY | 2023-05-10 19:44 | External Medical Summary ---
Author Name Unknown Address Unknown Organization K01:[facility] [place] [address] [place] [address] Laboratory Report Ordering Provider Test Date Status MARGIE DANIELSON 09/23/2021 18:38:41 Final Observation Date Value Abnormality Reference (Units) Status Bacteria identified in Unspecified specimen by Culture 09/23/2021 18:38:41 No significant growth Final Performing Location LABORATORY [facility] - [address] [place] [address]
--- OUTSIDE RECORDS SUMMARY | 2023-05-10 19:45 | External Medical Summary ---
Author Name Unknown Address Unknown Organization K1F:LABORATORY [facility] - [address] [place] [address] Laboratory Report Ordering Provider Test Date Status MARGIE DANIELSON 09/23/2021 17:24:48 Final Observation Date Value Abnormality Reference (Units ) Status Lipase 09/23/2021 17:24:48 55 13-60 (U/L ) Final Performing Location [facility] - [address] [place] [address]
--- OUTSIDE RECORDS SUMMARY | 2023-05-10 19:45 | External Medical Summary ---
Author Name Unknown Address Unknown Organization K1F:[facility]ORY [facility] - [address] [place] [address] Laboratory Report Ordering Provider Test Date Status MARGIE DANIELSON 09/23/2021 17:24:42 Final Observation Date Value Abnormality Reference (Units ) Status Lactic Acid 09/23/2021 17:24:42 1.8 0.4-2.0 (mmol/L) Final Performing Location LAB[facility]ATORY [facility] - [address] [place] [address]
--- OUTSIDE RECORDS SUMMARY | 2023-05-10 19:45 | External Medical Summary ---
Author Name Unknown Address Unknown Organization K1F:LABORATORY [facility] - [place] [address] Laboratory Report Ordering Provider Test Date Status MARGIE DANIELSON 09/23/2021 17:24:47 Final Observation Date Value Abnormality Reference (Units ) Status Troponin T 09/23/2021 17:24:47 44 Above high normal < =14 (ng/L) Final Performing Location LAB[facility]ORY [facility] - [address] [place] [address]
--- OUTSIDE RECORDS SUMMARY | 2023-05-10 19:45 | External Medical Summary ---
Author Name Unknown Address Unknown Organization K1F:LABORATORY [facility] - [address] [place] [address] Laboratory Report Ordering Provider Test Date Status MARGIE DANIELSON 09/23/2021 17:24:43 Final Observation Date Value Abnormality Reference (Units ) Status ABO 09/23/2021 17:24:43 A Final RH 09/23/2021 17:24:43 Positive Final RED BLOOD CELL ANTIBODY SCREEN 09/23/2021 17:24:43 Negative Final SPECIMEN EXPIRATION DATE 09/23/2021 17:24:43 09/26/2021 23:59 Final Performing Location LABORATORY [facility] - [address] [place] [address]
--- OUTSIDE RECORDS SUMMARY | 2023-05-10 19:45 | External Medical Summary | Summary of Care ---
Author Name Unknown Organization [place] [address] Care Team Providers Care Sccm Administrator Name Role Phone Vanita Dunn MD Primary Care Provid er Reason for Visit * Reason Comments Emergency Department Follow-Up Encounter Details Date Type Department Care Team Description 09/20/2021 Office Visit [facility] [address] [place] [address] Carter Chan MD [address] [place] [address] Urinary tract infection without hematuria, site unspecified*; Acute cystitis with hematuria Allergies Active Allergy Reactions Severity Noted [...] 120 Vial 11 10/02/2019 Active nystatin (NYSTOP) 756437 UNIT/GM powder Apply topically to affected area [...] Informant: Pharmacy, Reported on 02/04/2021 Dexcom G6 Line Service Supervisor Device Use as directed. To test [...] Strip 3 10/29/2020 Active OneTouch Delica Plus [id number] TESTING once daily 100 Each 3 10/29/2020 [...] Active Azithromycin 250 MG Oral Tablet (Zithromax Z-Marcus)Indications:B ronchitis, complicated Take two tablets by mouth on first day, then 1 tablet daily until gone 6 Tablet 0 09/17/2021 Active Fluticasone-Salmete rol 250-50 MCG/DOSE Inhalation [...] than 7.0% ([facility]) inject 32 units under skin at bedtime [...] 08/03/2021 2 Discontinu ed(Patient preference /discontin uation) Sulfamethoxazole-Tr imethoprim 800-160 MG Oral Tablet (Bactrim [...] pain 01/24/2012 01/17/2017 Genetic Sleep Disorder Research Other*[id number] 05/13/2011 04/07/2016 Obstructive sleep apnea 01/18/2011 12/27/19 [...] Sign Reading Time Taken Comments Blood Pressure 112/76 09/20/2021 11:49 AM EST Pulse 60 09/20/2021 11:49 AM EST Temperature 36.8 C (98.2 F) 09/20/2021 11:[address] Respiratory Rate 20 09/20/2021 11:49 AM EST Oxygen Saturation 92% 09/20/2021 11:49 AM EST Inhaled Oxygen Concentration - - [...] as of this encounter Progress Notes * Carter Chan MD - 09/20/2021 12:15 PM EST Subjective: Shaina Bustos is a 66 year old female. Chief Complaint Patient presents with Emergency Department Follow-Up HPI: 66-year-old with known history of cerebral palsy and cirrhosis of the liver is seen today mainly in follow-up to visits last week. She has had blood including blood clots that may be arising in the bladder or vaginally in it is unclear at this point. Last week she was seen by GI and they did blood work which included hemoglobin that was low at 7.7. She was referred to a hospital with the thought that she would need blood transfusion. She was seen [facility] where repeat testing showed the hemoglobin to be 8.5. She had a urine culture done at [facility] Emergency Room which grew MRSA. She had had a prior urine culture done in mid August which also showed MRSA. She currently is finishing a course of Macrodantin which I believe was started at some [facility]. She is not passing the amount of blood as she was last week. Right now she does not feel well but her blood sugar is low at 62. Patient Active Problem List Diagnosis Code Venous insufficiency I87.2 Spinal stenosis of lumbar region without neurogenic claudication M48.061 Cerebral palsy (HCC) G80.9 HTN, goal below 130/80 I10 NG (nonalcoholic steatohepatitis) K75.81 Venous stasis dermatitis of both lower extremities I87.2 DDD (degenerative disc disease), lumbar M51.36 Moderate persistent asthma without complication J45.40 Lymphedema I89.0 Type 2 diabetes mellitus with hemoglobin A1c goal of less than 8.0% ([facility]) E11.9 Vitamin D deficiency E55.9 Restrictive lung disease J98.4 Obesity, morbid (more than 100 lbs over ideal weight or BMI > 40) ([facility]) E66.01 Dyslipidemia E78.5 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 R39.81 Acquired hypothyroidism E03.9 Chronic pain syndrome G89.4 MEDICATION USE AGREEMENT [id number] Cirrhosis of liver ([facility]) K74.60 THAD on CPAP G47.33, Z99.89 Wheelchair dependent Z99.3 DM type 2 with diabetic peripheral neuropathy ([facility]) E11.42 Primary insomnia F51.01 Recurrent major depressive disorder, in partial remission ([facility]) F33.41 Impaired mobility and ADLs Z74.09, Z78.9 Gastroesophageal reflux disease K21.9 Fibromyalgia M79.7 Thrombocytopenia ([facility]) D69.6 Iron deficiency anemia due to chronic blood loss D50.0 Esophageal varices ([facility]) I85.00 Cyst of pancreas K86.2 Portal hypertensive gastropathy ([facility]) K76.6, K31.89 Chronic diastolic (congestive) heart failure ([facility]) I50.32 Current Outpatient Medications Medication Sig Dispense Refill albuterol sulfate (PROVENTIL) (2.5 MG/3ML) 0.083% nebulizer solution Inhale 1 Vial via nebulizer every 6 hours as needed for Wheezing. 120 Vial 11 nystatin (NYSTOP) 531348 UNIT/GM powder Apply topically to affected area [...] for Shortness of Breath.) 3 mL 10 Fluticasone-Salmeterol 250-50 MCG/DOSE Inhalation Aerosol Powder Breath Activated (Advair Diskus) Inhale 1 Puff by mouth 2 times a day. 60 Each 3 Dexcom G6 Line Service Supervisor Device Use as directed. To test blood sugars 4 times a day Dx E11.9 1 Each 0 Dexcom G6 Sensor Use as directed. To test blood sugars 4 times a day. Change sensor every 10 days. Dx E11.9 Please dispense 3 boxes for 90 day supply 3 Each 3 Dexcom G6 Transmitter Use as directed. To [...] daily 100 Strip 3 OneTouch Delica Plus [id number] TESTING once daily 100 Each 3 Nitroglycerin 0.4 MG Sublingual Tablet Sublingual (Nitrostat) Place 1 Tab under the tongue every 5 minutes as needed for Pain, Chest. up to 3 doses in 15 minutes 25 Tab 11 BiPAP every night at bedtime. NovoLOG FlexPen 100 UNIT/ML Subcutaneous Solution Pen-injector Inject under the skin three times a day before meals. Sliding scale Trulicity 4.5 MG/0.5ML Subcutaneous Solution Pen-injector (Dulaglutide) Inject one pen (4.5 mg)under the skin once weekly 6 mL 3 Nadolol 40 MG Oral Tablet (Corgard) Take 1 tablet daily. 90 Tab 1 Oxybutynin Chloride 5 MG Oral Tablet (Ditropan) TAKE 1 TABLET BY MOUTH TWICE DAILY 180 Tab 1 Ibuprofen 800 MG Oral Tablet (Motrin) Take 1 Tab by mouth daily as needed for Pain, Severe. with food for pain 30 Tab 3 Spironolactone 25 MG Oral Tablet (Aldactone) Take 2 Tabs by mouth daily. 60 Tab 5 Docusate Sodium 100 MG Oral Capsule (Colace) TAKE 1 CAPSULE BY MOUTH ONCE DAILY 68 Cap 0 metFORMIN HCl ER 500 MG Oral Tablet Extended Release 24 Hour (Glucophage XR) Take one tablet bymouth daily with a meal 90 Tab 3 Lantus SoloStar 100 UNIT/ML Subcutaneous Solution Pen-injector (Insulin Glargine) inject 32 units under skin at bedtime 45 mL 3 Gabapentin 300 MG Oral Capsule (Neurontin) [...] ONCE DAILY BEFORE BREAKFAST 90 Capsule 1 Senna-Docusate Sodium 8.6-50 MG Oral Tablet Take 1 Tablet by mouth daily. 90 Tablet 2 Bisacodyl 5 MG Oral Tablet Delayed Release (Dulcolax) Take 2 Tablets by mouth daily as needed for Constipation. Do not use for more than one week. Do not cut, crush or chew 40 Tablet 1 Escitalopram Oxalate 20 MG Oral Tablet [...] (lower extremity swelling). EDEMA 30 Tablet 2 Nitrofurantoin Monohyd Macro 100 MG Oral Capsule (Macrobid) Take 1 Capsule by mouth 2 times a day. With food until gone 10 Capsule 0 Benzonatate 100 MG Oral Capsule (Tessalon Perles) Take 1 Capsule by mouth 3 times a day as needed for Cough. 30 Capsule 1 MEDICAL INSTRUCTIONS Please de-access patient's port. Please flush with 10 mL of NS, followed by 500 units (5 mL) of heparin. 1 Each N/A Azithromycin 250 MG Oral Tablet (Zithromax Z-Marcus) Take two tablets by mouth on first day, then 1 tablet daily until gone (Patient not taking: Reported on 09/20/2021) 6 Tablet 0 No current facility-administered medications for this visit. Review of patient's allergies indicates: Allergen Reactions Adhesive Tape Itching Pcn [Penicillins] Rash Perflutren Protein A Microsph Definity-lower back pain Objective: BP 112/76 | Pulse 60 | Temp 36.8 C (98.2 F) (Tympanic) | Resp 20 | SpO2 92% Physical Exam: CONST: alert, pleasant, no acute distress HEAD: normocephalic, atraumatic A, EOM'I OROPHARYNX: clear, no swelling or erythema, moist CV: regular rate and rhythm, no murmur CHEST: clear to auscultation bilaterally, no rales or wheezing NEURO: She is wheelchair-bound MENTAL STATUS: no evidence of thought disorder, no delusional thought, no evidence of paranoia, thought is non-tangential. SKIN: Appears slightly jaundiced ASSESSMENT/PLAN: 1. Questionable hematuria verses abnormal uterine bleeding. Ultrasound the pelvis has been ordered but as yet there is no scheduled appointment 2. MRSA UTI-start Bactrim DS 1 twice a day for 10 days 3. Chronic anemia having been exacerbated-repeat CBC today. If hemoglobin less than 8, she will be referred for transfusion. 4. Diabetes mellitus with hypoglycemia currently-she is given some apple juice here in the office to raise her blood sugar. [facility] at home is scheduled to see her this afternoon. She should be scheduled with her primary care provider Dr. Dunn later this month Carter Chan MD documented in this encounter Nursing Notes * Jb Benavidez LPN - 09/20/2021 11:43 AM EST The patient has been properly identified by confirmation of name and date of . Chief Complaint Patient presents with Emergency Department Follow-Up documented in this encounter Plan of Treatment Upcoming Encounters Date Type Specialty Care Team Description 09/23/2021 Office Visit Cardiology Quyen Canseco CRNP [address] [facility] [place] [address] 09/27/2021 [facility] Visit [facility] [place] [address] 09/30/2021 Appointment Radiology 09/30/2021 Appointment Radiology 10/01/2021 Office Visit Family Medicine Vanita Dunn MD [address] [place] [address] 10/04/2021 Home Visit [facility] July Poe RN [address] [facility] [place] [address] 10/20/2021 Immunization/Injection Hematology Oncolog y Nurse, Med [address] [facility], [place] [address] 10/22/2021 Office Visit Sleep Disorders Love Francisco DO [address] [facility] [place] [address] 11/02/2021 Imaging Radiology 11/10/2021 Office Visit Pharmacy [facility] [address] [place] [address] 12/22/2021 Office Visit Endocrinology Alberta Duque PA-C [address] [place] [address] 12/23/2021 Office Visit Gastroenterology Lyssa Stout CRNP [address] [facility] [place] [address] 01/04/2022 Office Visit Hematology Oncology Tono Sanchez MD [address] [place] [address] 03/24/2022 Office Visit [facility] [address] [facility] [id number] 06/24/2022 Office Visit Sleep Disorders Love Francisco DO [address] [facility] [place] [address] Scheduled Procedures Name Priority Associated Diagnoses Date/Ti [...] 0 11/06/2019, 01/09/2019, Additional history exists DIABETES-URINE MICROALBUMIN EVERY 12 MONTHS 04/16/2022 04/16/2021, 03/31/2021, 03/22/2021, [...] of this encounter Implants Implanted Type Area Monotypist Device Identifier Shelf Expiration Date Model / Serial / Lot Microtech Sure Clip Implanted:Qty: 2 on 06/03/2020 by Janis Hatch DO at OR [facility] Clip N/A: Colon 04/21/2022 [facility]-F-26-2 35-C-R / / [id number] documented as of this encounter Visit Diagnoses Diagnosis Urinary tract infection without hematuria, site unspecified- Primary Acute cystitis with hematuria Acute cystitis documented in this encounter Advance Directives Documents on File Type Date Recorded Patient Erp Implementation Consultant 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 WILL AND HEALTH CARE POA Power of Upholstery Estimator 04/29/2021 12:00 AM TOM R OF [facility] POA Advanced Directive 04/01/2021 [...] Syed Bustos Spouse Emergency Contact Care Teams Sccm Administrator Relationship Specialty Start Date End Date Vanita Dunn MD [address] [facility] [place], [place] [id number] PCP - General Family Medicine 03/16/21 documented as of this encounter"
--- OUTSIDE RECORDS SUMMARY | 2023-05-10 19:45 | External Medical Summary ---
Author Name Unknown Address Unknown Organization K1F:[facility] - [facility] [place] [address] Laboratory Report Ordering Provider Test Date Status MARGIE DANIELSON 09/23/2021 17:24:50 Final Observation Date Value Abnormality Reference (Units ) Status Bacteria identified in Unspecified specimen by Culture 09/23/2021 17:24:50 No growth Final Performing Location [facility] - [address] [place] [address]
--- OUTSIDE RECORDS SUMMARY | 2023-05-10 19:45 | External Medical Summary ---
Author Name Unknown Address Unknown Organization K1F:[facility] - [address] [place] [address] Laboratory Report Ordering Provider Test Date Status SHERYL WAKEFIELD 09/23/2021 17:24:46 Final Observation Date Value Abnormality Reference (Units ) Status Retic, % (auto) 09/23/2021 17:24:46 3.49 Above high normal 0.80-1.90 (%) Final Reticulocytes, Absolute 09/23/2021 17:24:46 92.5 31.3-100.1 (K/uL) Final Reticulocyte fraction, immature 09/23/2021 17:24:46 33.7 Above high normal 2.5-20.6 (%) Final Reticulocyte HGB 09/23/2021 17:24:46 24.9 Below low normal 29.7-37.4 (pg) Final Performing Location [facility] - [address] [place] [address]
--- OUTSIDE RECORDS SUMMARY | 2023-05-10 19:45 | External Medical Summary ---
Author Name Unknown Address Unknown Organization K1F:[facility] - [address] [place] [address] Laboratory Report Ordering Provider Test Date Status MARGIE DANIELSON 09/23/2021 17:24:48 Final Observation Date Value Abnormality Reference (Units ) Status BNP, Pro-hormone 09/23/2021 17:24:48 113 <30 0 (pg/mL) Final Performing Location [facility] - [address] [place] [address]
--- OUTSIDE RECORDS SUMMARY | 2023-05-10 19:46 | External Medical Summary | Summary of Care ---
Author Name Unknown Organization [place] [address] Care Team Providers Care Shaper Setter Name Role Phone Vanita Dunn MD Primary Care Provid er Reason for Visit * Reason Onset Date Comments Order Request 07/22/2021 NIV Encounter Details Date Type Department Care Team Description 07/22/2021 Telephone Pulmonary Medicine, [facility] [address] [facility] [place] [address] Reynaldo Marquez MD [address] [facility] [place] [id number] Order Request (NIV) Allergies Active Allergy Reactions Severity Noted Date Comments Adhesive Tape Itching 04/29/2020 Penicillins Rash 02/12/2008 Perflutren Protein A Microsph 2019 Definity-lower back pain documented as of this encounter (statuses as of 09/22/2021) Medications Medication Sig Dispensed Refills Start Date End Date Status albuterol sulfate (PROVENTIL) (2.5 MG/3ML) 0.083% nebulizer solutionIndication s:Pulmonary vascular congestion Inhale 1 Vial via nebulizer every 6 hours as needed for Wheezing. 120 Vial 11 0 Active nystatin (NYSTOP) 930795 UNIT/GM powder Apply topically to affected area [...] Informant: Pharmacy, Reported on 02/04/2021 Dexcom G6 Orchestrator Device Use as directed. To test blood sugars 4 times a day Dx E11.9 1 Each 0 1 Active Dexcom G6 Sensor Use as directed. To test blood sugars 4 times a day. Change sensor every 10 days. Dx E11.9 Please dispense 3 boxes for 90 day supply 3 Each 3 1 Active Dexcom G6 Transmitter Use as [...] Strip 3 1 Active OneTouch Delica Plus [id number] TESTING once daily 100 Each 3 1 [...] 1 Active Ibuprofen 800 MG Oral Tablet (Motrin)Indication s:Costochondral chest pain Take 1 Tab by mouth daily as needed for Pain, Severe. with food for pain 30 Tab 3 1 Active Spironolactone 25 MG Oral [...] BEFORE BREAKFAST 90 Capsule 1 1 Active CENTRUM SILVER PO TABS Take 1 Tab by mouth daily. 1 Tab 0 2 022 Discontinued(Meghann albrightrged) vitamin c (ASCORBIC ACID) 500 MG Tablet Take 500 mg by mouth daily. 0 022 Discontinued(Meghann albrightrged) Blood Glucose Monitoring Suppl (BLOOD GLUCOSE MONITOR SYSTEM) w/Device KIT Use to test once per day. 1 Kit 0 0 022 Discontinued(Meghann albrightrged) silver sulfadiazine (SILVADENE) 1 % cream Apply topically to affected area daily. Apply to right great toe 50 g 0 0 022 Discontinued(Meghann albrightrged) Fluticasone-Salmet jayme 250-50 MCG/DOSE Inhalation Aerosol Powder Breath Activated (Advair Diskus)Indications :Moderate persistent asthma with acute exacerbation Inhale 1 Puff by mouth 2 times a day. 60 Each 3 0 022 Discontinued(Phan winters preference/disc ontinuation) BD Pen Needle Mini U/F 31G X 5 MM (Insulin Pen Needle)Indications :Type 2 diabetes mellitus with hemoglobin A1c goal of less than 7.0% (HCC) Use to inject insulin four times daily; E11.42 400 Each 3 1 021 Discontinued Escitalopram Oxalate 20 MG Oral Tablet (Lexapro)Indicatio ns:Recurrent major depressive disorder, in partial remission (HCC) TAKE 1 TABLET BY MOUTH ONCE DAILY 90 Tab 3 1 021 Discontinued Cinnamon 500 MG Oral Capsule Take 500 mg by mouth daily. 0 022 Discontinued(Di scharged) Cyclobenzaprine HCl 10 MG Oral Tablet (Flexeril) TAKE 1 TABLET ONCE DAILY AT BEDTIME 30 Tab 0 1 022 Discontinued(Di scharged) Atorvastatin Calcium 80 MG Oral Tablet (Lipitor) Take 1 Tab by mouth at bedtime. 30 Tab 5 1 021 Discontinued Aspirin 81 MG Oral Tablet Chewable Take 1 Tab by mouth daily. 30 Tab 5 1 021 Discontinued Isosorbide Mononitrate ER 30 MG Oral Tablet Extended Release 24 Hour (Imdur) Take 1 Tab by mouth daily. 30 Tab 5 1 021 Discontinued Potassium Chloride Selena ER 10 MEQ Oral Tablet Extended Release Take 10 mEq by mouth daily at noon. 0 022 Discontinued(Di scharged) Furosemide 20 MG Oral Tablet (Lasix) Take 1 Tab by mouth daily as needed. EDEMA 0 1 022 Discontinued(Re fill) Senna-Docusate Sodium 8.6-50 MG Oral Tablet Take 1 Tab by mouth daily. 90 Tab 0 1 021 Discontinued(Re fill) Lantus SoloStar 100 UNIT/ML Subcutaneous Solution Pen-injector (Insulin Glargine)Indicatio ns:Type 2 diabetes mellitus with hemoglobin A1c goal of less than 7.0% ([facility]) inject 32 units under skin at bedtime 45 mL 3 1 022 Discontinued(Phan iwnters preference/disc ontinuation) Tamsulosin HCl 0.4 MG Oral Capsule (Flomax)Indication s:Acute bilateral low back pain without sciatica,Bilateral renal colic Take 1 Cap by mouth daily. 30 Cap 0 1 022 Discontinued(Di scharged) documented as of this encounter (statuses as of 09/22/2021) Active Problems Problem Noted Date Chronic diastolic [...] as of this encounter (statuses as of 09/22/2021) Resolved Problems Problem Noted Date Resolved Date [...] pain 01/24/2012 01/17/2017 Genetic Sleep Disorder Research Other*[id number] 05/13/2011 04/07/2016 Obstructive sleep apnea 01/18/2011 12/27/19 [...] as of this encounter (statuses as of 09/22/2021) Immunizations Name Administration Dates Next Due COVID-19 [...] encounter Miscellaneous Notes * Telephone Encounter - Emmy Guzman LPN - 09/22/2021 7:55 AM EST Addendum OVN faxed to [facility] * Telephone Encounter - Reynaldo Marquez MD - 09/21/2021 1:35 PM EST Office note was redone on 09/16. * Telephone Encounter - Emmy Guzman LPN - 09/21/2021 11:22 AM EST Please let office know when the office note is revised. * Telephone Encounter - Reynaldo Marquez MD - 09/16/2021 12:15 PM EST Will addend office note. Resend after. * Telephone Encounter - Emmy Guzman LPN - 09/16/2021 11:30 AM EST [facility] states that OVN from 07-22-21 doesn't state the need for NIV. Pt needs to have a thoracic restrictive disease or nuero muscular disease and CP doesn't qualify pt. Needs to be very specific on why she needs the NIV. Please advise * Telephone Encounter - Reynaldo Marquez MD - 07/22/2021 2:48 PM EST See encounter from today * Telephone Encounter - Emmy Guzman LPN - 07/22/2021 8:52 AM EST Chart needs to say due to CP and RLD and Chronic Resp Failure and needs NIV. documented in this encounter Plan of Treatment Upcoming Encounters Date Type Specialty Care Team Description 09/23/2021 Office Visit Cardiology Quyen Canseco CRNP [address] [place] [address] 09/27/2021 Home Visit [facility] Joselin Dawson CRNP [address] [place] [address] 09/30/2021 Appointment Radiology 09/30/2021 Appointment Radiology 10/01/2021 Office Visit Family Medicine Vanita Dunn MD [address] [place] [address] 10/04/2021 [facility] [place] [address] 10/20/2021 Immunization/Injection Hematology Oncolog y Nurse, Med [address] [place] [address] 10/22/2021 Office Visit Sleep Disorders Love Francisco DO [address] [place] [address] 11/02/2021 Imaging Radiology 11/10/2021 [facility] [address] [place] [address] 12/22/2021 Office Visit Endocrinology Alberta Duque PA-C [address] [place] [address] 12/23/2021 Office Visit Gastroenterology Lyssa Stout CRNP [address] [facility] [place] [address] 01/04/2022 Office Visit Hematology Oncology Tono Sanchez MD [address] [place] [address] 03/24/2022 Office Visit Pulmonary Reynaldo Marquez MD [address] [place] [facility] [place] [address] 06/24/2022 Office Visit Sleep Disorders Love Francisco DO [address] [facility] [place] [address] Scheduled Procedures Name Priority Associated Diagnoses Date/Ti [...] of this encounter Implants Implanted Type Area Spa Manager Device Identifier Shelf Expiration Date Model / Serial / Lot Microtech Sure Clip Implanted:Qty: 2 on 06/03/2020 by Janis Hatch DO at OR [facility] Clip N/A: Colon 04/21/2022 [facility]-F-26-2 35-C-R / / [id number] documented as of this encounter Advance Directives Documents on File Type Date Recorded Patient Forensic Toxicologist 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 WILL AND HEALTH CARE POA Power of Stage Producer 04/29/2021 12:00 AM TOM R OF [facility] CARE POA Advanced Directive 04/01/2021 [...] Syed Bustos Spouse Emergency Contact Care Teams Shaper Setter Relationship Specialty Start Date End Date Vanita Dunn MD [address] [facility] [address] PCP - General Family Medicine 03/16/21 documented as of this encounter
--- OUTSIDE RECORDS SUMMARY | 2023-05-10 19:46 | External Medical Summary | Summary of Care ---
Author Name Unknown Organization [place] [address] Care Team Providers Care Loss Prevention Officer Name Role Phone Vanita [place] MD Primary Care Provid er Reason for Visit * Reason Onset Date Comments Advice 09/16/2021 Encounter Details Date Type Department Care Team Description 09/16/2021 Telemetry Nurse Telephone [facility] [address] [place] [address] Connie Arguello, UMA [address] [place] [address] Advice Allergies Active Allergy Reactions Severity Noted Date Comments Adhesive Tape Itching 04/29/2020 Penicillins Rash 02/12/2008 Perflutren Protein A Microsph 2019 Definity-lower back pain documented as of this encounter (statuses as of 09/21/2021) Medications Medication Sig Dispensed Refills Start Date End Date Status albuterol sulfate (PROVENTIL) (2.5 MG/3ML) 0.083% nebulizer solutionIndications :Pulmonary vascular congestion Inhale 1 Vial via nebulizer every 6 hours as needed for Wheezing. 120 Vial 11 10/02/2019 Active nystatin (NYSTOP) 902559 UNIT/GM powder Apply topically to affected area [...] Informant: Pharmacy, Reported on 02/04/2021 Dexcom G6 House Detective Device Use as directed. To test blood [...] Strip 3 10/29/2020 Active OneTouch Delica Plus Kgocig65L TESTING once daily 100 Each 3 10/29/2020 [...] movements daily 240 mL 3 09/16/2021 Active Fluticasone-Salmete rol 250-50 MCG/DOSE Inhalation Aerosol Powder Breath Activated (Advair Diskus)Indications: Moderate persistent asthma with acute exacerbation Inhale 1 Puff by mouth 2 times a day. 60 Each 3 07/27/2020 2 Discontinu ed(Patient preference /discontin uation) Furosemide 20 MG Oral Tablet (Lasix) Take 1 Tab by mouth daily as needed. EDEMA 0 03/26/2021 2 Discontinu ed(Refill) Lantus SoloStar 100 UNIT/ML Subcutaneous Solution Pen-injector (Insulin Glargine)Indication s:Type 2 diabetes mellitus with hemoglobin A1c goal of less than 7.0% ([facility]) inject 32 units under skin at bedtime [...] 08/03/2021 2 Discontinu ed(Patient preference /discontin uation) Lactulose 10 GM/15ML Oral Solution (Constulose) 0 08/11/2021 2 Discontinu ed(Refill) documented as of this encounter (statuses as of 09/21/2021) Active Problems Problem Noted Date Chronic diastolic [...] as of this encounter (statuses as of 09/21/2021) Resolved Problems Problem Noted Date Resolved Date [...] pain 01/24/2012 01/17/2017 Genetic Sleep Disorder Research Other*[id number] 05/13/2011 04/07/2016 Obstructive sleep apnea 01/18/2011 12/27/19 [...] as of this encounter (statuses as of 09/21/2021) Immunizations Name Administration Dates Next Due COVID-19 [...] * Telephone Encounter - ZAK [place] - 09/21/2021 12:02 PM EST Reviewed ZAK Schreiber * Telephone Encounter - Cecil Padilla RN - 09/20/2021 2:24 PM EST Lyssa, labs and documentation from ED visit updated in patients Care Everywhere. * Telephone Encounter - Cecil Padilla RN - 09/16/2021 2:10 PM EST Called [facility], requested records, will await fax. * Telephone Encounter - ZAK [place] - 09/16/2021 1:56 PM EST Nurses - can we please obtain [place] ED records and scan ZAK Schreiber * Telephone Encounter - Connie Arguello RN - 09/16/2021 1:48 PM EST Patient confirmed that she did go to the ER in [place]-took a blood & urine sample, sent herhome, said she is on an eebojqgthp-HWI-Nfuxmxtqh at Home will be following patient also-thanks Connie Arguello RN * Telephone Encounter - ZAK [place] - 09/16/2021 1:17 PM EST She did mention that she does not like the lactulose as it causes her to have too much diarrhea andstool incontinence. However she was also taking the lactulose along with other laxatives such as Linzess, Senokot and Dulcolax. Given that her ammonia level is elevated I would rather her take the lactulose as prescribed but stop all other oral laxatives. I am not sure about the doses of her other medications including her diuretics. I have asked the pharmacy to fax us the most updated list of her medications. We are still waiting for that record to come in, until then I cannot refill her diuretics with the appropriate dose. However I will refill her lactulose. By the way, I called patient yesterday and refer her to the ER for acute on chronic anemia with hematuria and vaginal bleeding. Did she ever make it to [place] ER as plan? If so, I will ask our nurses to obtain ER records ZAK Schreiber * Telephone Encounter - Connie Arguello RN - 09/16/2021 11:23 AM EST GI- I just talked to Shaina & her -they are confused about your recommendations regarding theLactulose & her diuretics-Does not sound like Shaina is taking the Lactulose currently, also shedoes not like to take it on days she has to go to appointments-also if you could re enter the script for the Lactulose with the medication directions, dosage, etc. Patient also continues to take the Spironolactone, does not sound like she has any Lasix in the home-will need to get a refill-please clarify what you would like the patient to do going forward-patient goes to [facility] pharmacy-thanks Connie Arguello RN documented in this encounter Plan of Treatment Upcoming Encounters Date Type Specialty Care Team Description 09/23/2021 Office Visit Cardiology Quyen Canseco CRNP [address] [place] [address] 09/27/2021 [facility] Joselin [place] CRNP [address] [place] [address] 09/30/2021 Appointment Radiology 09/30/2021 Appointment Radiology 10/01/2021 Office Visit Family Medicine Vanita Dunn MD [address] [place] [facility] [place] [address] 10/04/2021 [facility] Visit [facility] July Poe, RN 132 [facility] [place] [address] 10/20/2021 Immunization/Injection Hematology Oncolog y Nurse, Med [address] [place] [address] 10/22/2021 Office Visit Sleep Disorders Love Francisco DO 132 [facility] [place] [address] 11/02/2021 Imaging Radiology 11/10/2021 Office Visit Pharmacy [facility] [address] [place] [address] 12/22/2021 Office Visit Endocrinology Alberta Duque PA-C [address], [place] [id number] 12/23/2021 Office Visit [facility]astroenterology [facility] [address] 01/04/2022 Office Visit Hematology Oncology Tono Sanchez MD [address] [place] [address] 03/24/2022 Office Visit Pulmonary Reynaldo Marquez MD [address] [place] [address] 06/24/2022 Office Visit Sleep Disorders Love Francisco DO [address] [place] [address] Scheduled Procedures Name Priority Associated Diagnoses Date/Ti [...] of this encounter Implants Implanted Type Area Loss Prevention Guard Device Identifier Shelf Expiration Date Model / Serial / Lot Microtech Sure Clip Implanted:Qty: 2 on 06/03/2020 by Janis Hatch DO at OR [facility] Clip N/A: Colon 04/21/2022 [facility]-F-26-2 35-C-R / / [id number] documented as of this encounter Advance Directives Documents on File Type Date Recorded Patient Community Chest Officer 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 WILL AND HEALTH CARE POA Power of Health Service Worker 04/29/2021 12:00 AM TOM R OF SENIOR UNDERWRITER HEALTH CARE POA Advanced Directive 04/01/2021 1:14 [...] Spouse Emergency Contact Care Teams Loss Prevention Officer Relationship Specialty Start Date End Date Vanita uDnn MD [address] [place] [address] PCP - General Family Medicine 03/16/21 documented as of this encounter
--- OUTSIDE RECORDS SUMMARY | 2023-05-10 19:46 | External Medical Summary | Summary of Care ---
Author Name Unknown Organization [facility] Address [place] [address] Care Team Providers Care Manufacturing Design Engineer Name Role Phone Vanita Dunn MD Primary Care Provid er Encounter Details Date Type Department Care Team Description 09/22/2021 Telephone [facility] [address] [place] [address] Carter Chan MD [address] [place] [address] Allergies Active Allergy Reactions Severity [...] 120 Vial 11 10/02/2019 Active nystatin (NYSTOP) 284207 UNIT/GM powder Apply topically to affected area [...] Informant: Pharmacy, Reported on 02/04/2021 Dexcom G6 Ride Assembly Supervisor Device Use as directed. To test [...] Strip 3 10/29/2020 Active OneTouch Delica Plus Gogmia64H TESTING once daily 100 Each 3 10/29/2020 [...] pain 01/24/2012 01/17/2017 Genetic Sleep Disorder Research Other*[id number] 05/13/2011 04/07/2016 Obstructive sleep apnea 01/18/2011 12/27/19 [...] encounter Miscellaneous Notes * Telephone Encounter - Carter Chan MD - 09/22/2021 3:20 PM EST I spoke with patient's twice today. Latest blood work shows hemoglobin is 7.6. She has somedegree of chronic anemia but this is notably decreased. She recently had passed blood with clots either from the vagina or the bladder it is unclear. Additionally after seen GI recently she was notedto have elevated ammonia level. indicated that he would like to take patient to a [facility]. He had initially indicated taking her to [place] but then ask there was something closerand I told him that [facility] would be another option. I messaged with Dr. De León. He indicated that the patient should be initially evaluated in the emergency room (as opposed to a direct admit). Again discussed this with and he indicated he would [facility]. documented in this encounter Plan of Treatment Upcoming Encounters Date Type Specialty Care Team Description 09/23/2021 Office Visit Cardiology Quyen Canseco CRNP [address] [place] [address] 09/27/2021 [facility] Visit [facility] Joselin [place] CRNP [address] [place] [address] 09/30/2021 Appointment Radiology 09/30/2021 Appointment Radiology 10/01/2021 Office Visit Family Medicine Vanita Dunn MD [address] [place] [address] 10/04/2021 Home Visit [facility] July Poe, RN 132 [facility] [place] [address] 10/20/2021 Immunization/Injection Hematology Oncolog y Nurse, Med 4 200 [place] [address] 10/22/2021 Office Visit Sleep Disorders Love Francisco DO 132 [place] [address] 11/02/2021 Imaging Radiology 11/10/2021 Office Visit Pharmacy [facility] [address] [place] [address] 12/22/2021 Office Visit Endocrinology Alberta Duque PA-C [address] [place] [address] 12/23/2021 Office Visit Gastroenterology Lyssa Stout CRNP [address] [place] [address] 01/04/2022 Office Visit Hematology Oncology Tono Sanchez MD 200 [facility] [place] [address] 03/24/2022 Office Visit Pulmonary Reynlado Marquez MD [address] [place] [address] 06/24/2022 Office Visit Sleep Disorders Love Francisco, DO [address] [place] [address] Scheduled Procedures Name Priority Associated Diagnoses Date/Ti [...] this encounter Implants Implanted Type Area Die Barber Device Identifier Shelf Expiration Date Model / Serial / Lot Microtech Sure Clip Implanted:Qty: 2 on 06/03/2020 by Janis Hatch DO at OR [facility] Clip N/A: Colon 04/21/2022 [facility]-F-26-2 35-C-R / / [id number] documented as of this encounter Advance Directives Documents on File Type Date Recorded Patient Casket Assembler Metal 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 WILL AND HEALTH CARE POA Power of Recreation Facility Attendant 04/29/2021 12:00 AM TOM R OF HIGH SCHOOL HISTORY TEACHER HEALTH CARE POA Advanced Directive 04/01/2021 1:14 [...] Bustos Spouse Emergency Contact Care Teams Manufacturing Design Engineer Relationship Specialty Start Date End Date Vanita Dunn MD [address] [place] [address] PCP - General Family Medicine 03/16/21 documented as of this encounter
--- OUTSIDE RECORDS SUMMARY | 2023-05-10 19:46 | External Medical Summary | Summary of Care ---
Author Name Unknown Organization [place] [address] Care Team Providers Care Clam Dredger Name Role Phone Vanita Dunn MD Primary Care Provid er Reason for Visit * Reason Onset Date Comments Order Request 07/22/2021 NIV Encounter Details Date Type Department Care Team Description 07/22/2021 Telephone Pulmonary Medicine, [facility] 132 [facility] [place] [address] Reynaldo Marquez MD [address] [facility] [place] [id number] Order Request (NIV) Allergies Active Allergy Reactions [...] 120 Vial 11 0 Active nystatin (NYSTOP) 214837 UNIT/GM powder Apply topically to affected area [...] Informant: Pharmacy, Reported on 02/04/2021 Dexcom G6 Optical Effects Layout Person Device Use as directed. To test [...] Strip 3 1 Active OneTouch Delica Plus Xvospw88F TESTING once daily 100 Each 3 1 [...] less than 7.0% ([facility]) inject 32 units under skin at bedtime 45 mL 3 1 022 Discontinued(Phan winters preference/disc ontinuation) Tamsulosin HCl 0.4 MG Oral [...] pain 01/24/2012 01/17/2017 Genetic Sleep Disorder Research Other*[id number] 05/13/2011 04/07/2016 Obstructive sleep apnea 01/18/2011 12/27/19 [...] encounter Miscellaneous Notes * Telephone Encounter - Reynaldo Marquez MD [...] Guzman LPN - 09/16/2021 11:30 AM EST [facility] states that OVN from 07-22-21 doesn't state [...] Office Visit Cardiology Quyen Canseco CRNP 132 [facility] [place] [address] 09/27/2021 [facility] Joselin [place] CRNP 132 [facility] [place] [address] 09/30/2021 Appointment Radiology 09/30/2021 Appointment Radiology 10/01/2021 Office Visit Family Medicine Vanita Dunn MD [address] [place] [address] 10/04/2021 Home Visit [facility] July Poe RN 132 [facility] [place] [address] 10/20/2021 Immunization/Injection Hematology Oncolog y Nurse, Med 4 [address] [facility] [place] [address] 10/22/2021 Office Visit Sleep Disorders Love Francisco DO [address] [place] [address] 11/02/2021 Imaging Radiology 11/10/2021 Office Visit Pharmacy [facility] [address] [place] [address] 12/22/2021 Office Visit Endocrinology Alberta Duque PA-C [address] [facility] [place] [address] 12/23/2021 Office Visit Gastroenterology Lyssa [facility]out [facility]NP [facility] [place] [address] 01/04/2022 Office Visit Hematology Oncology Tono Sanchez MD 200 [place] [address] 03/24/2022 Office Visit Pulmonary Reynaldo Marquez MD [address] [place], [place] [address] 06/24/2022 Office Visit Sleep Disorders Love Francisco, DO [address] [facility] [place] [address] Scheduled Procedures Name Priority Associated Diagnoses Date/Ti [...] of this encounter Implants Implanted Type Area R D Manager Device Identifier Shelf Expiration Date Model / Serial / Lot Microtech Sure Clip Implanted:Qty: 2 on 06/03/2020 by Janis Hatch DO at OR [facility] Clip N/A: Colon 04/21/2022 [facility]-F-26-2 35-C-R / / [id number] documented as of this encounter Advance Directives Documents on File Type Date Recorded Patient Sales Correspondent 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 WILL AND HEALTH CARE POA Power of Licsw 04/29/2021 12:00 AM TOM R [facility] POA Advanced Directive 04/01/2021 1:14 [...] Agents on File Name Relationship Healthcare Agent [facility] navya Communication Syed Bustos Spouse Emergency Contact Care Teams Clam Dredger Relationship Specialty Start Date End Date Vanita Dunn MD [address] [place] [address] PCP - General Family Medicine 03/16/21 documented as of this encounter
--- OUTSIDE RECORDS SUMMARY | 2023-05-10 19:47 | External Medical Summary | Summary of Care ---
Author Name Unknown Organization [facility] Address [facility] [place] [address] Care Team Providers Care Lot Associate Name Role Phone Vanita Dunn MD Primary Care Provid er Reason for Visit * Reason Onset Date Comments Medication Update 09/14/2021 Encounter Details Date Type Department Care Team Description 09/14/2021 Telephone Gastroenterology, [facility] 132 [facility] [place] [address] Lyssa Stout CRNP 132 [facility] [place] [address] Medication Update Allergies Active Allergy Reactions Severity [...] 120 Vial 11 10/02/2019 Active nystatin (NYSTOP) 906806 UNIT/GM powder Apply topically to affected area [...] Informant: Pharmacy, Reported on 02/04/2021 Dexcom G6 Saxophone Teacher Device Use as directed. To test [...] Strip 3 10/29/2020 Active OneTouch Delica Plus Mfmtda07H TESTING once daily 100 Each 3 10/29/2020 [...] Pain, Severe. 20 Tablet 0 09/14/2021 Active Fluticasone-Salmete rol 250-50 MCG/DOSE Inhalation Aerosol [...] than 7.0% ([facility]) inject 32 units under skin at [...] pain 01/24/2012 01/17/2017 Genetic Sleep Disorder Research Other*[id number] 05/13/2011 04/07/2016 Obstructive sleep apnea 01/18/2011 12/27/19 [...] Miscellaneous Notes * Telephone Encounter - Brianne Triana RN - 09/21/2021 11:12 AM EST Med list updated based on fills received from the pharmacy. * Telephone Encounter - Brianne Triana RN - 09/20/2021 1:42 PM EST I called and spoke with [facility] pharmacy. They will send the last 6 month record of fills to update her chart. * Telephone Encounter - Cecil Padilla RN - 09/16/2021 3:22 PM EST Attempted to call patients pharmacy again, busy line, will attempt at a later time. * Telephone Encounter - Cecil Padilla RN - 09/14/2021 3:32 PM EST Called the pharmacy, they are sending over the current list of medications they provide in her packs. Will scan once received. * Telephone Encounter - ZAK [place] - 09/14/2021 3:10 PM EST Please try calling patient's pharmacy to get an updated list of her medication. [facility] I tried calling today however kept on getting busy dial tones. Please scanthe list of medications after this is obtain so we can update her medication list. ZAK Schreiber documented in this encounter Plan of Treatment Upcoming Encounters Date Type Specialty Care Team Description 09/23/2021 Office Visit Cardiology Quyen Canseco CRNP [address] [place] [address] 09/27/2021 [facility] Joselin [place] CRNP [address] [place] [address] 09/30/2021 Appointment Radiology 09/30/2021 Appointment Radiology 10/01/2021 Office Visit Family Medicine Vanita Dunn MD [address] [place] [facility] [place] [address] 10/04/2021 Home Visit [facility] July Poe RN 132 [facility] [place] [address] 10/20/2021 Immunization/Injection Hematology Oncolog y Nurse, Med 4 [address] [place] [address] 10/22/2021 Office Visit Sleep Disorders Love Francisco DO 132 [facility] [place] [address] 11/02/2021 Imaging Radiology 11/10/2021 Office Visit Pharmacy [facility] [address] [place] [address] 12/22/2021 Office Visit Endocrinology Alberta Duque PA-C [address], [place] [address] 12/23/2021 Office Visit Gastroenterology Lyssa Stout CRNP 132 [facility] [place] [address] 01/04/2022 Office Visit Hematology Oncology Tono Sanchez MD 200 [place] [address] 03/24/2022 Office Visit Pulmonary Reynaldo Marquez MD [address] [place] [address] 06/24/2022 Office Visit Sleep Disorders Love Francisco DO [facility] [place] [address] Scheduled Procedures Name Priority Associated Diagnoses Date/Ti [...] of this encounter Implants Implanted Type Area Data Collector Device Identifier Shelf Expiration Date Model / Serial / Lot Microtech Sure Clip Implanted:Qty: 2 on 06/03/2020 by Janis Hatch DO at OR [facility] Clip N/A: Colon 04/21/2022 [facility]-F-26-2 35-C-R / / [id number] documented as of this encounter Advance Directives Documents on File Type Date Recorded Patient Compo Conveyor Operator 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 WILL AND HEALTH CARE POA Power of Cellophane Wrapping Examiner 04/29/2021 12:00 AM TOM R OF EMERGENCY MEDCL EMT HEALTH CARE POA Advanced Directive 04/01/2021 1:14 [...] Agents on File Name Relationship Healthcare Agent [facility] Communication Syed Bustos Spouse Emergency Contact Care Teams Lot Associate Relationship Specialty Start Date End Date Vanita Dunn MD [address], [place] [id number] PCP - General Family Medicine 03/16/21 documented as of this encounter
--- OUTSIDE RECORDS SUMMARY | 2023-05-10 19:47 | External Medical Summary | Summary of Care ---
Author Name Unknown Organization [place] [address] Care Team Providers Care Tool Or Die Drawing Checker Name Role Phone Vanita Dunn MD Primary Care Provid er Reason for Visit * Reason Onset Date Comments Order Request 07/22/2021 NIV Encounter Details Date Type Department Care Team Description 07/22/2021 Telephone Pulmonary Medicine, [facility] 132 [facility] [place] [address] Reynaldo Marquez MD [address] [facility] [place] [phone] Order Request (NIV) Allergies Active Allergy Reactions [...] 120 Vial 11 0 Active nystatin (NYSTOP) 207526 UNIT/GM powder Apply topically to affected area [...] Informant: Pharmacy, Reported on 02/04/2021 Dexcom G6 Director Community Organization Device Use as directed. To test blood [...] Strip 3 1 Active OneTouch Delica Plus Blpuac12M TESTING once daily 100 Each 3 1 [...] [facility]) inject 32 units under skin at bedtime [...] pain 01/24/2012 01/17/2017 Genetic Sleep Disorder Research Other*[id number] 05/13/2011 04/07/2016 Obstructive sleep apnea 01/18/2011 12/27/19 [...] Guzman LPN - 09/16/2021 11:30 AM EST [facility] states that OVN from 07-22-21 doesn't [...] Quyen Canseco CRNP 132 [facility] [place] [address] 09/27/2021 [facility] Joselin Dawson CRNP 132 [place] [address] 09/30/2021 Appointment Radiology 09/30/2021 Appointment Radiology 10/01/2021 Office Visit Family Medicine Vanita Dunn MD [address] [place] [address] 10/04/2021 Home Visit [facility] July Poe RN 132 [place] [address] 10/20/2021 Immunization/Injection Hematology Oncolog y Nurse, Med 4 200 [place] [address] 10/22/2021 Office Visit Sleep Disorders Love Francisco DO 132 [place] [address] 11/02/2021 Imaging Radiology 11/10/2021 Office Visit Pharmacy [facility] [address] [place] [address] 12/22/2021 Office Visit Endocrinology Alberta Duque PA-C [address] [place] [address] 12/23/2021 Office Visit Gastroenterology Lyssa Stout CRNP 132 [place] [address] 01/04/2022 Office Visit Hematology Oncology Tono Sanchez MD 200 [place] [address] 03/24/2022 Office Visit Pulmonary Reynaldo Marquez MD [address] [place] [address] 06/24/2022 Office Visit Sleep Disorders Love Francisco, DO [address] [place] [address] Scheduled Procedures Name Priority Associated Diagnoses Date/Ti [...] of this encounter Implants Implanted Type Area Foreign Trade Teacher Device Identifier Shelf Expiration Date Model / Serial / Lot Microtech Sure Clip Implanted:Qty: 2 on 06/03/2020 by Janis Hatch DO at OR [facility] Clip N/A: Colon 04/21/2022 [facility]-F-26-2 35-C-R / / [id number] documented as of this encounter Advance Directives Documents on File Type Date Recorded Patient Plug Wirer 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 LIVING WILL AND HEALTH CARE POA Power [facility] 04/29/2021 12:00 AM [facility] Advanced Directive 04/01/2021 1:14 PM Advanced [...] Bustos Spouse Emergency Contact Care Teams Tool Or Die Drawing Checker Relationship Specialty Start Date End Date Vanita Dunn MD [address] [place] [address] PCP - General Family Medicine 03/16/21 documented as of this encounter
--- OUTSIDE RECORDS SUMMARY | 2023-05-10 19:48 | External Medical Summary | Summary of Care ---
Author Name Unknown Organization [place] [address] Care Team Providers Care Soda Dispenser Name Role Phone Vanita Dunn MD Primary Care Provid er Reason for Visit * Reason Onset Date Comments Forms Request 09/20/2021 Encounter Details Date Type Department Care Team Description [facility] [address] [place] [address] [facility] [address] [place] [address] Forms Request Allergies Active Allergy Reactions Severity Noted Date Comments Adhesive Tape Itching 04/29/2020 Penicillins Rash 02/12/2008 Perflutren Protein A Microsph 2019 Definity-lower back pain documented as of this encounter (statuses as of 09/20/2021) Medications Medication Sig Dispensed Refills Start Date End Date Status albuterol sulfate (PROVENTIL) (2.5 MG/3ML) 0.083% nebulizer solutionIndications: Pulmonary vascular congestion Inhale 1 Vial via nebulizer every 6 hours as needed for Wheezing. 120 Vial 11 10/02/2019 Active nystatin (NYSTOP) 663178 UNIT/GM powder Apply topically to affected area [...] of Breath, Informant: Pharmacy, Reported on 02/04/2021 Fluticasone-Salmeter ol 250-50 MCG/DOSE Inhalation Aerosol Powder Breath Activated (Advair Diskus)Indications:M oderate persistent asthma with acute exacerbation Inhale 1 Puff by mouth 2 times a day. 60 Each 3 07/27/2020 Active Dexcom G6 Diesel Engine I Pipe Fitter Device Use as directed. To [...] Strip 3 10/29/2020 Active OneTouch Delica Plus [id number] TESTING once daily 100 Each 10/29/2020 Active [...] times a day before meals. Sliding scale 0 03/24/2021 Active Trulicity 4.5 MG/0.5ML Subcutaneous [...] a meal 90 Tab 3 06/02/2021 Active Lantus SoloStar 100 UNIT/ML Subcutaneous Solution Pen-injector (Insulin Glargine)Indications :Type 2 diabetes mellitus with hemoglobin A1c goal of less than 7.0% (HCC) inject 32 units under skin at bedtime 45 mL 3 06/02/2021 Active Gabapentin 300 MG Oral [...] BEFORE BREAKFAST 90 Capsule 1 07/22/2021 Active Senna-Docusate Sodium 8.6-50 MG Oral TabletIndications:Co nstipation, unspecified constipation type Take 1 Tablet by mouth daily. 90 Tablet 2 07/26/2021 Active Bisacodyl 5 MG Oral Tablet Delayed Release (Dulcolax)Indication s:Drug-induced constipation Take 2 Tablets by mouth daily as needed for Constipation. Do not use for more than one week. Do not cut, crush or chew 40 Tablet 1 08/03/2021 Active Escitalopram Oxalate 20 MG Oral Tablet [...] With food until gone 10 Capsule 0 09/17/2021 Active Benzonatate 100 MG Oral Capsule (Tessalon Perles)Indications:B ronchitis, complicated Take 1 Capsule by mouth 3 times a day as needed for Cough. 30 Capsule 1 09/17/2021 Active Azithromycin 250 MG Oral Tablet (Zithromax Z-Marcus)Indications:Br onchitis, complicated Take two tablets by mouth on first day, then 1 tablet daily until gone 6 Tablet 0 09/17/2021 Active Additional Information Patient not taking. Reported on 09/20/2021 Sulfamethoxazole-Tri methoprim 800-160 MG Oral Tablet (Bactrim DS)Indications:Acute cystitis with hematuria Take 1 Tablet by mouth 2 times a day for 10 days. Until gone 20 Tablet 0 09/20/2021 2 Active documented as of this encounter (statuses as of 09/20/2021) Active Problems Problem Noted Date Chronic diastolic [...] as of this encounter (statuses as of 09/20/2021) Resolved Problems Problem Noted Date Resolved Date [...] pain 01/24/2012 01/17/2017 Genetic Sleep Disorder Research Other*[id number] 05/13/2011 04/07/2016 Obstructive sleep apnea 01/18/2011 12/27/19 [...] as of this encounter (statuses as of 09/20/2021) Immunizations Name Administration Dates Next Due COVID-19 [...] Notes * Telephone Encounter - Indira Hudson, [facility] - 09/20/2021 1:01 PM EST Received forms from [employer] for Dexcom. Completed and faxed paperwork as requestedto [phone]. Indira Hudson [facility], Pharm D, BCACP Clinical Pharmacist 09/20/21 1:02 PM documented in this encounter Plan of Treatment Upcoming Encounters Date Type Specialty Care Team Description 09/20/2021 [facility] July Poe RN [address] [place] [address] 09/23/2021 Office Visit Cardiology Quyen Canseco CRNP [address] [place] [address] 09/27/2021 [facility] Joselin Dawson CRNP [address] [place] [address] 10/20/2021 Immunization/Injecti on Hematology Oncology Nurse, Med [address] [facility] [address] 10/22/2021 Office Visit Sleep Disorders Love Francisco DO [address] [place] [address] 11/02/2021 Imaging Radiology 11/10/2021 [facility] [place] [address] [facility] [address] 12/22/2021 Office Visit Endocrinology [facility] Duque [facility]-C [address] [facility] [address] 12/23/2021 Office Visit Gastroenterology Lyssa Stout CRNP [address] [facility] [place] [address] 01/04/2022 Office Visit Hematology Oncology Tono Sanchez MD [address] [place] [address] 03/24/2022 Office Visit Pulmonary Reynaldo Marquez MD [address] [place] [address] 06/24/2022 Office Visit Sleep Disorders Love Francisco DO [address] [place] [address] Scheduled Procedures Name Priority Associated Diagnoses Date/Ti [...] this encounter Implants Implanted Type Area Supervisor Grinding Device Identifier Shelf Expiration Date Model / Serial / Lot Microtech Sure Clip Implanted:Qty: 2 on 06/03/2020 by Janis Hatch DO at OR [facility] Clip N/A: Colon 04/21/2022 [facility]-F-26-2 35-C-R / / [id number] documented as of this encounter Advance Directives Documents on File Type Date Recorded Patient Nuclear Weapons Custodian 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 LIVING WILL AND HEALTH CARE POA Power Naartjie 04/29/2021 12:00 AM TOM R [employer] [facility] POA Advanced Directive 04/01/2021 1:14 PM [...] Agents on File Name Relationship Healthcare Agent [facility] p Communication Syed Bustos Spouse Emergency Contact Care Teams Soda Dispenser Relationship Specialty Start Date End Date Vanita Dunn MD [address], [place] [phone] PCP - General Family Medicine 03/16/21 documented as of this encounter
--- OUTSIDE RECORDS SUMMARY | 2023-05-10 19:48 | External Medical Summary | Summary of Care ---
Author Name Unknown Organization [place] [address] Care Team Providers Care Senior Inspector Name Role Phone Vanita Dunn MD Primary Care Provid er Reason for Visit * Reason Comments Outpatient Testing Encounter Details Date Type Department Care Team Description 09/20/2021 Laboratory Laboratory, [place] [address] [place] [address] [place] [address] [place] [address] Acute cystitis with hematuria Allergies Active Allergy [...] 120 Vial 11 10/02/2019 Active nystatin (NYSTOP) 636437 UNIT/GM powder Apply topically to affected area [...] 60 Each 3 07/27/2020 Active Dexcom G6 Coating Inspector Device Use as directed. To test blood sugars 4 times a day Dx E11.9 1 Each 0 09/14/2020 Active Dexcom G6 Sensor Use as directed. To test blood sugars 4 times a day. Change sensor every 10 days. Dx E11.9 Please dispense 3 boxes for 90 day supply 3 Each 09/14/2020 Active Dexcom G6 Transmitter Use as [...] Strip 3 10/29/2020 Active OneTouch Delica Plus Kxouui43M TESTING once daily 100 Each 10/29/2020 Active [...] pain 01/24/2012 01/17/2017 Genetic Sleep Disorder Research Other*[id number] 05/13/2011 04/07/2016 Obstructive sleep apnea 01/18/2011 12/27/19 [...] Specialty Care Team Description 09/20/2021 [facility] July Poe RN [address] [facility] [place] [address] 09/23/2021 Office Visit Cardiology Quyen Canseco CRNP [address] [facility] [place] [address] 09/27/2021 [facility] Visit [facility] Joselin Dawson CRNP [address] [facility] [place] [address] 10/01/2021 Office Visit Family Medicine Vanita Dunn MD [address] [place] [address] 10/20/2021 Immunization/Injecti on Hematology Oncology Nurse, Med [address] [place] [address] 10/22/2021 Office Visit Sleep Disorders Love Francisco DO [address] [facility] [place] [address] 11/02/2021 Imaging Radiology 11/10/2021 Office Visit Pharmacy [facility] [address] [place] [address] 12/22/2021 Office Visit Endocrinology Alberta Duque PA-C [address] [place] [address] 12/23/2021 Office Visit [facility] [place] [address] 01/04/2022 Office Visit Hematology Oncology Tono Sanchez MD [address] [place] [address] 03/24/2022 Office Visit Pulmonary eRynaldo Marquez MD [address] [place] [phone] 06/24/2022 Office Visit Sleep Disorders Love Francisco, DO [address] [place] [address] Pending Results Name Type Priority Associated Diagnoses Date /Time CBC WITH WBC DIFFERENTIAL Lab Routine Acute cystitis with hematuria 09/20/2021 1:18 PM EST CBC Lab Routine Acute cystitis with hematuria 09/20/2021 1:18 PM EST DIFFERENTIAL, AUTOMATED Lab Routine Acute cystitis with hematuria 09/20/2021 1:18 PM EST Scheduled Procedures Name Priority Associated [...] of this encounter Implants Implanted Type Area Calker Device Identifier Shelf Expiration Date Model / Serial / Lot Microtech Sure Clip Implanted:Qty: 2 on 06/03/2020 by Janis Hatch DO at OR [facility] Clip N/A: Colon 04/21/2022 [facility]-F-26-2 35-C-R / / [id number] documented as of this encounter Visit Diagnoses Diagnosis Acute cystitis with hematuria Acute cystitis documented in this encounter Advance Directives Documents on File Type Date Recorded Patient Weld Engineer 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 LIVING WILL AND HEALTH CARE POA Power [employer] 04/29/2021 12:00 AM TOM Johnson [facility] POA Advanced Directive 04/01/2021 1:14 PM [...] Bustos Spouse Emergency Contact Care Teams Senior Inspector Relationship Specialty Start Date End Date Vanita Dunn MD [address] [place] [facility] [place] [place] [address] PCP - General Family Medicine 03/16/21 documented as of this encounter
--- OUTSIDE RECORDS SUMMARY | 2023-05-10 19:48 | External Medical Summary | Summary of Care ---
Author Name Unknown Organization [place] [address] Care Team Providers Care Building Construction Teacher Name Role Phone Vanita Dunn MD Primary Care Provid er Reason for Visit * Reason Onset Date Comments Advice 09/16/2021 Encounter Details Date Type Department Care Team Description 09/16/2021 Enrichment Specialist Telephone [facility] [address] [place] [address] Connie Arguello, [facility] [address] [place] [address] Advice Allergies Active Allergy Reactions [...] 120 Vial 11 10/02/2019 Active nystatin (NYSTOP) 011127 UNIT/GM powder Apply topically to affected area [...] of Breath, Informant: Pharmacy, Reported on 02/04/2021 Fluticasone-Salmete rol 250-50 MCG/DOSE Inhalation Aerosol Powder Breath Activated (Advair Diskus)Indications: Moderate persistent asthma with acute exacerbation Inhale 1 Puff by mouth 2 times a day. 60 Each 3 07/27/2020 Active Dexcom G6 Unix Analyst Device Use as directed. To test [...] every 90 days. 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 APPLY TO SKIN OVER MEDIPORT & COVER 1HR PRIOR TO ACCESSING. 30 g 3 10/09/2020 Active OneTouch Verio In Vitro Strip (Glucose Blood) TESTING once daily 100 Strip 3 10/29/2020 Active OneTouch Delica Plus Tubrya78J TESTING once daily 100 Each 10/29/2020 Active [...] 07/22/2021 Active Senna-Docusate Sodium 8.6-50 MG Oral TabletIndications:C onstipation, [...] needed. EDEMA 0 03/26/2021 2 Discontinu ed(Refill) Lactulose 10 GM/15ML Oral Solution (Constulose) 0 [...] pain 01/24/2012 01/17/2017 Genetic Sleep Disorder Research Other*[id number] 05/13/2011 04/07/2016 Obstructive sleep apnea 01/18/2011 12/27/19 [...] EST Nurses - can we please obtain [place] ED records and scan ZAK Schreiber * Telephone Encounter - Connie Arguello RN - 09/16/2021 1:48 PM EST Patient confirmed that she did go to the ER in [place]-took a blood & urine sample, sent herhome, said she is on an gzutlnhstw-[facility]-Acynvizlr at Home will be following patient also-thanks [...] bleeding. Did she ever make it to [place] ER as plan? If so, I will [...] patient to do going forward-patient goes to [facility] pharmacy-thanks Connie Arguello RN documented in this encounter Plan of Treatment Upcoming Encounters Date Type Specialty Care Team Description 09/20/2021 Home Visit [facility] July Poe RN [address] [place] [address] 09/23/2021 Office Visit Cardiology Quyen Canseco CRNP [address] [place] [address] 09/27/2021 [facility] Visit [facility] Joselin Dawson CRNP [address] [place] [address] 10/01/2021 Office Visit Family Medicine [facility] [address] [facility] [address] 10/20/2021 Immunization/Injecti on Hematology Oncology Nurse, Med [address] [facility], [place] [address] 10/22/2021 Office Visit Sleep Disorders Love Francisco DO [address] [place] [address] 11/02/2021 Imaging Radiology 11/10/2021 [facility] [address] [place] [address] 12/22/2021 Office Visit Endocrinology Alberta Duque PA-C [address] [place] [address] 12/23/2021 Office Visit Gastroenterology Lyssa Stout CRNP [address] [facility] [place] [address] 01/04/2022 Office Visit Hematology Oncology Tono Sanchez MD [address] [place] [address] 03/24/2022 Office Visit Pulmonary Reynaldo Marquez MD [address], [place] [phone] 06/24/2022 Office Visit Sleep Disorders Love Francisco DO [address] [facility] [place] [address] Scheduled Procedures Name Priority Associated Diagnoses Date/Ti [...] of this encounter Implants Implanted Type Area Logistics Analytics Manager Device Identifier Shelf Expiration Date Model / Serial / Lot Microtech Sure Clip Implanted:Qty: 2 on 06/03/2020 by Janis Hatch DO at OR [facility] Clip N/A: Colon 04/21/2022 [facility]-F-26-2 35-C-R / / [id number] documented as of this encounter Advance Directives Documents on File Type Date Recorded Patient Art Glass Designer 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 WILL AND HEALTH CARE POA Power of School Psychologist Assistant 04/29/2021 12:00 AM TOM R OF SENIOR WIND TURBINE TECHNICIAN [facility] CARE POA Advanced Directive 04/01/2021 [...] Bustos Spouse Emergency Contact Care Teams Building Construction Teacher Relationship Specialty Start Date End Date Vanita Dunn MD [address] [place] [address] PCP - General Family Medicine 03/16/21 documented as of this encounter
--- OUTSIDE RECORDS SUMMARY | 2023-05-10 19:48 | External Medical Summary | Summary of Care ---
Author Name Unknown Organization [place] [address] Care Team Providers Care Global President Name Role Phone Vanita Dunn MD Primary Care Provid er Reason for Visit * Reason Onset Date Comments Medication Update 09/14/2021 Encounter Details Date Type Department Care Team Description 09/14/2021 Telephone Gastroenterology, [facility] 132 [facility] [place] [address] Lsysa Stout CRNP [address] [facility] [place] [address] Medication Update Allergies Active Allergy Reactions Severity [...] 120 Vial 11 10/02/2019 Active nystatin (NYSTOP) 811730 UNIT/GM powder Apply topically to affected area [...] 60 Each 3 07/27/2020 Active Dexcom G6 Edi Programmer Analyst Device Use as directed. 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 APPLY TO SKIN OVER MEDIPORT & COVER 1HR PRIOR TO ACCESSING. 30 g 3 10/09/2020 Active OneTouch Verio In Vitro Strip (Glucose Blood) TESTING once daily 100 Strip 3 10/29/2020 Active OneTouch Delica Plus Kidlex55Z TESTING once daily 100 Each 10/29/2020 Active [...] Pain, Severe. 20 Tablet 0 09/14/2021 Active Furosemide 20 MG Oral Tablet (Lasix) [...] pain 01/24/2012 01/17/2017 Genetic Sleep Disorder Research Other*[id number] 05/13/2011 04/07/2016 Obstructive sleep apnea 01/18/2011 12/27/19 [...] PM EST I called and spoke with [facility] pharmacy. They will send the last 6 [...] medication. [facility] I tried calling today however kept on getting busy dial tones. Please scanthe list of medications after this is obtain so we can update her medication list. ZAK Schreiber documented in this encounter Plan of Treatment Upcoming Encounters Date Type Specialty Care Team Description 09/20/2021 [facility] Visit [facility] July Poe RN [address] [place] [address] 09/23/2021 Office Visit Cardiology Quyen Canseco CRNP [address] [place] [address] 09/27/2021 Home Visit [facility] Joselin Dawson CRNP [address] [place] [address] 10/01/2021 Office Visit Family Medicine [facility] [address] 10/20/2021 Immunization/Injecti on Hematology Oncology Nurse, Med [address] [place] [address] 10/22/2021 Office Visit Sleep Disorders Love Francisco DO [address] [place] [address] 11/02/2021 Imaging Radiology 11/10/2021 Office Visit [facility]acy [facility] [address] [place] [address] 12/22/2021 Office Visit Endocrinology Alberta Duque PA-Niya [address] [place] [address] 12/23/2021 Office Visit Gastroenterology Lyssa Stout CRNP 132 [facility] [place] [address] 01/04/2022 Office Visit Hematology Oncology Tono Sanchez MD [address] [place] [address] 03/24/2022 Office Visit Pulmonary Reynaldo Marquez MD [address] [place], [place] [phone] 06/24/2022 Office Visit Sleep Disorders Love Francisco DO [address] [facility] [place] [address] Scheduled Procedures Name Priority Associated Diagnoses Date/Ti [...] encounter Implants Implanted Type Area Professor Of Musicology Device Identifier Shelf Expiration Date Model / Serial / Lot Microtech Sure Clip Implanted:Qty: 2 on 06/03/2020 by Janis Hatch DO at OR [facility] Clip N/A: Colon 04/21/2022 [facility]-F-26-2 35-C-R / / [id number] documented as of this encounter Advance Directives Documents on File Type Date Recorded 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
--- OUTSIDE RECORDS SUMMARY | 2023-05-10 19:49 | External Medical Summary | Summary of Care ---
Author Name Unknown Organization [place] [address] Care Team Providers Care Animal Surgeon Name Role Phone Vanita Dunn MD Primary Care Provid er Encounter Details Date Type Department Care Team Description 09/17/2021 Telemedicine [facility] [address] [place] [address] Brianne Pal PA-C [address] [place] [address] Recurrent UTI*; Post-menopausal bleeding; Otalgia of both ears; Bronchitis, complicated Allergies Active Allergy Reactions Severity Noted Date Comments Adhesive Tape Itching 04/29/2020 Penicillins Rash 02/12/2008 Perflutren Protein A Microsph 2019 Definity-lower back pain documented as of this encounter (statuses as of 09/17/2021) Medications Medication Sig Dispensed Refills Start Date End Date Status albuterol sulfate (PROVENTIL) (2.5 MG/3ML) 0.083% nebulizer solutionIndications: Pulmonary vascular congestion Inhale 1 Vial via nebulizer every 6 hours as needed for Wheezing. 120 Vial 11 10/02/2019 Active nystatin (NYSTOP) 596411 UNIT/GM powder Apply topically to affected area [...] 60 Each 3 07/27/2020 Active Dexcom G6 Compressed Gases Tester Device Use as directed. To test [...] Strip 3 10/29/2020 Active OneTouch Delica Plus [id number] TESTING once daily 100 Each 3 10/29/2020 [...] until gone 10 Capsule 0 09/17/2021 Active Debrox 6.5 % Otic Solution (Carbamide Peroxide)Indications :Otalgia of both ears Instill 5 Drops into both ears once for 1 dose. Fill ear canal and insert cotton plug. Remove plug after 15 to 30 minutes. 15 mL 1 09/17/2021 2 Active Benzonatate 100 MG Oral Capsule [...] as of this encounter (statuses as of 09/17/2021) Active Problems Problem Noted Date Chronic diastolic [...] as of this encounter (statuses as of 09/17/2021) Resolved Problems Problem Noted Date Resolved Date [...] pain 01/24/2012 01/17/2017 Genetic Sleep Disorder Research Other*[id number] 05/13/2011 04/07/2016 Obstructive sleep apnea 01/18/2011 12/27/19 [...] as of this encounter (statuses as of 09/17/2021) Immunizations Name Administration Dates Next Due COVID-19 [...] as of this encounter Progress Notes * Brianne Pal PA-C - 09/17/2021 12:48 PM EST Subjective Shaina Bustos is a 66 year old female that presents for No chief complaint on file. HPI: Due to COVID 19 pandemic, this visit was done via video. Patient is established with the practice. Last face to face visit was 09/14/2021. Call start time: 1248 Patient location: HOME. I was in a hospital or clinic location. After connecting through televideo,patient was verified with two unique identifiers. 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 Methods to assure confidentiality were taken. Patient acknowledged consent and understanding of pr ivacy and security of the Telemedicine visit. The patient agreed to participate. Does not feel good today. She has been hacking. This cough going on now for over a week. It is dry.She has not wheeze. Denies cp. She feels better laying flat that sitting up - then it olvera to breathe. Was not so bad last week but she kept saying her nose was clogged and stuffed up. Then got a tickle in her throat. No fever. No sore throat. Ears are blocked. Has been for a long time. Hurts to work on her ears at home to get a qtip in there. She is more tired. Color poor Was to the er on 09/15. Had been being treated for uti with hematuria. Multiple abx. She developed some bleeding she felt might be vaginal. As soon as she finished meds, bleeding started again and heavier.she was found to be mildly anemic but is not requiring blood transfusion at this time with a hemoglobin of 8.6, platelet count of 100,000. She was not transfused. Urine is really strong. She is peeing a lot more. Passing clots vaginally. URINE SCREEN WITH REFLEX MICROSCOPIC AND REFLEX CULTURE 09/15/2021. Order: [id number] Ref Range & Units 2 d ago UA CULTURE SCREEN Positive screen. Culture to be done. CHARACTER - URINE CLER CloudyAbnormal COLOR - URINE YELL Dark YellowAbnormal Specific Bluffs-Urine 1.000 - 1.025 >=1.030 pH - Urine 5.0 - 8.0 6.0 Leukocyte Esterase NEGAT ModerateAbnormal Urine Nitrite NEGAT PosAbnormal Protein-Urine NEGAT mg/dL SmallAbnormal Glucose-Urine NEGAT mg/dL Negative KETONES - URINE NEGAT Negative Urobilinogen-Urine 0.0 - 1.0 mg/dL 1.0 Bilirubin-Urine NEGAT Negative Blood-Urine NEGAT LargeAbnormal White Blood Cells-Urine ZTF /hpf >100Abnormal Red Blood Cells-Urine ZTFR /hpf >100Abnormal Bacteria NONE /hpf ModerateAbnormal Epithelial Cells ZTF /lpf 10-20Abnormal Urine Mucus Threads NONE ModerateAbnormal Objective There were no vitals taken for this visit. There is no height or weight on file to calculate BMI. BP Readings from Last 3 Encounters: 09/14/21 102/58 09/14/21 100/70 08/25/21 100/60 Wt Readings from Last 3 Encounters: 08/03/21 115.2 kg (254 lb) 07/22/21 115.2 kg (254 lb) 07/10/21 127 kg (280 lb) Physical exam None Assessment and plan Recurrent UTI (Primary) - URINALYSIS WITH MICROSCOPIC EXAM; Standing - CULTURE, URINE, QUANTITATIVE; Standing - US RENAL; Future; Expected date: 09/17/2021 Post-menopausal bleeding - US PELVIS TRANS-VAGINAL NON-OB; Future; Expected date: 09/17/2021 - US PELVIS TRANS-ABDOMINAL; Future; Expected date: 09/17/2021 Otalgia of both ears - Debrox 6.5 % Otic Solution (Carbamide Peroxide); Instill 5 Drops into both ears once for 1 dose. Fill ear canal and insert cotton plug. Remove plug after 15 to 30 minutes. Bronchitis, complicated - Benzonatate 100 MG Oral Capsule ([place] Arnold); Take 1 Capsule by mouth 3 times a day as needed for Cough. - Azithromycin 250 MG Oral Tablet (Zithromax Z-Marcus); Take two tablets by mouth on first day, then 1tablet daily until gone Keep appt 09/20/21 Check-out note: Renal us and pelvic us on same day next week? Patient is morbidly obese and will need assistance to get on table - needs place with lift (Svetlana) comfort care measures discussed saline nasal spray with bulb syringe plenty of fluids Tylenol per dosing recommendations for low grade fever humidifier Rev er note Cont macrobid, add zpack and benzonatate, start nebs - She has nebs and has meds for her lungs Drop off urine day after finish abx - need to watch for culture - standing orders in, supplies at front Needs pelvic us for the vag bleeding - likely needs pedicurist - this is neoplasm until ruled out - consider pedicurist appt Total time today including reviewing chart before the visit, pertinent labs, imaging reports, face to face time, and documentation time was 35 minutes. The above was discussed and understanding was expressed. Brianne Pal PA-C documented in this encounter Plan of Treatment Upcoming Encounters Date Type Specialty Care Team Description 09/20/2021 Office Visit Family Medicine Carter Chan MD [address] [place] [address] 09/20/2021 [facility] July Poe RN [address] [facility] [place] [address] 09/23/2021 Office Visit [facility] [place] [address] 09/27/2021 [facility] Visit [facility] Joselin Dawson CRNP [address] [facility] [place] [address] 10/20/2021 Immunization/Injecti on Hematology Oncology Nurse, Med 4 200 [facility] [place] [place] [address] 10/22/2021 Office Visit Sleep Disorders Love Francisco DO [address] [place] [address] 11/02/2021 Imaging Radiology 11/10/2021 [facility] [address] [place] [address] 12/22/2021 Office Visit Endocrinology Alberta Duque PA-C [address] [place] [address] 12/23/2021 Office Visit Gastroenterology Lyssa Stout CRNP [address] [place] [address] 01/04/2022 Office Visit Hematology Oncology Tono Sanchez MD 200 [facility] [place] [address] 03/24/2022 Office Visit Pulmonary Reynaldo Marquez MD [address] [place] [address] 06/24/2022 Office Visit Sleep Disorders Love Francisco, [address] [place] [address] Scheduled Orders Name Type Priority Associated Diagnoses Order Schedule URINALYSIS WITH MICROSCOPIC EXAM Lab Routine Recurrent UTI 11 Occurrences starting 09/17/2021 until 09/17/2022 CULTURE, URINE, QUANTITATIVE Lab Routine Recurrent UTI 11 Occurrences starting 09/17/2021 until 09/17/2022 US PELVIS TRANS-VAGINAL NON-OB Medical Imaging Routine Post-menopausal bleeding Expected: 09/17/2021, Expires: 10/18/2022 US PELVIS TRANS-ABDOMINAL Medical Imaging Routine Post-menopausal bleeding Expected: 09/17/2021, Expires: 10/18/2022 US RENAL Medical Imaging Routine Recurrent UTI Expected: 09/17/2021, Expires: 10/18/2022 Scheduled Procedures Name Priority Associated Diagnoses Date/Ti [...] of this encounter Implants Implanted Type Area Link Trainer Mechanic Device Identifier Shelf Expiration Date Model / Serial / Lot Microtech Sure Clip Implanted:Qty: 2 on 06/03/2020 by Janis Hatch DO at OR [facility] Clip N/A: Colon 04/21/2022 [facility]-F-26-2 35-C-R / / [id number] documented as of this encounter Visit Diagnoses Diagnosis Recurrent UTI- Primary Urinary tract infection, site not specified Post-menopausal bleeding Postmenopausal bleeding Otalgia of both ears Otalgia, unspecified Bronchitis, complicated Bronchitis, not specified as acute or chronic documented in this encounter Advance Directives Documents on File Type Date Recorded Patient Underwear Cutter 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 WILL AND HEALTH CARE POA Power of Regulatory Scientist 04/29/2021 12:00 AM TOM R OF ERP PROGRAMMER HEALTH CARE POA Advanced Directive 04/01/2021 1:14 [...] Syed Bustos Spouse Emergency Contact Care Teams Animal Surgeon Relationship Specialty Start Date End Date Vanita Dunn MD [address] [place] [address] PCP - General Family Medicine 03/16/21 documented as of this encounter
--- OUTSIDE RECORDS SUMMARY | 2023-05-10 19:49 | External Medical Summary | Summary of Care ---
Author Name Unknown Organization [place] [address] Care Team Providers Care Custom Wood Stair Builder Name Role Phone Vanita Dunn MD Primary Care Provid er Reason for Visit * Reason Onset Date Comments Oxygen Assessment 09/16/2021 NPO Encounter Details Date Type Department Care Team Description 09/16/2021 Telephone Sleep Disorders [facility] [place] [address] Love Francisco, [facility] [place] [address] Oxygen Assessment (NPO) Allergies Active Allergy Reactions Severity Noted Date Comments Adhesive Tape Itching 04/29/2020 Penicillins Rash 02/12/2008 Perflutren Protein A Microsph 2019 Definity-lower back pain documented as of this encounter (statuses as of 09/16/2021) Medications Medication Sig Dispensed Refills Start Date End Date Status albuterol sulfate (PROVENTIL) (2.5 MG/3ML) 0.083% nebulizer solutionIndications: Pulmonary vascular congestion Inhale 1 Vial via nebulizer every 6 hours as needed for Wheezing. 120 Vial 11 10/02/2019 Active nystatin (NYSTOP) 757617 UNIT/GM powder Apply topically to affected area [...] 60 Each 3 07/27/2020 Active Dexcom G6 Military Analyst Device Use as directed. To test [...] Strip 3 10/29/2020 Active OneTouch Delica Plus [id number] TESTING once daily 100 Each 3 10/29/2020 [...] Pain, Severe. 20 Tablet 0 09/14/2021 Active documented as of this encounter (statuses as of 09/16/2021) Active Problems Problem Noted Date Chronic diastolic [...] as of this encounter (statuses as of 09/16/2021) Resolved Problems Problem Noted Date Resolved Date [...] pain 01/24/2012 01/17/2017 Genetic Sleep Disorder Research Other*[id number] 05/13/2011 04/07/2016 Obstructive sleep apnea 01/18/2011 12/27/19 [...] as of this encounter (statuses as of 09/16/2021) Immunizations Name Administration Dates Next Due COVID-19 [...] Encounter - Emmy Guzman LPN - 09/16/2021 4:21 PM EST Spoke with pt's and relayed Dr. Francisco 's message, he verbalized understanding. * Telephone Encounter - Love Francisco DO - 09/16/2021 4:15 PM EST NPO 08/25/2021 on BiPAP with 2 L/min (note that the NPO reports states "on room air", but she was wearing BiPAP for at least part of the recording). BiPAP usage on night of study with residual AHI 1.9. NPO shows no hypoxia. SpO2 naidr 89% basal SpO2 95.2%. Sleep nurse, please call patient/ to let them know that the oxygen test looks great (oxygen levels never dropped below 89%). Continue with current BiPAP and oxygen settings. * Telephone Encounter - Emmy Guzman LPN - 09/16/2021 12:02 PM EST Npo results given to provider to review. documented in this encounter Plan of Treatment Upcoming Encounters Date Type Specialty Care Team Description 09/17/2021 Office Visit Family Medicine Brianne Pal PA-C [address] [place] [address] 09/20/2021 Office Visit Family Medicine Carter Chan MD [address] [place] [address] 09/20/2021 [facility] July Poe RN 132 [facility] [place] [address] 09/23/2021 Office Visit Cardiology Quyen Canseco CRNP 132 [facility] [place] [address] 09/27/2021 Home Visit [facility] Joselin Dawson CRNP 132 [facility] [place] [address] 10/20/2021 Immunization/Injecti on Hematology Oncology Nurse, Med 4 [address] [place] [address] 10/22/2021 Office Visit Sleep Disorders Love Francisco DO 132 [facility] [place] [address] 11/02/2021 Imaging Radiology 11/10/2021 [facility] [address] [place] [address] 12/22/2021 Office Visit Endocrinology Alberta Duque PA-C [address], [place] [address] 12/23/2021 Office Visit Gastroenterology Lyssa Stout CRNP 132 [facility] [place] [address] 01/04/2022 Office Visit Hematology Oncology Tono Sanchez MD 200 [place] [address] 03/24/2022 Office Visit Pulmonary Reynaldo Marquez MD [address] [place] [address] 06/24/2022 Office Visit Sleep Disorders Love Francisco DO 132 [facility] [place] [address] Scheduled Procedures Name Priority Associated Diagnoses Date/Ti [...] of this encounter Implants Implanted Type Area Merchandise Distributor Device Identifier Shelf Expiration Date Model / Serial / Lot Microtech Sure Clip Implanted:Qty: 2 on 06/03/2020 by Janis Hatch DO at OR [facility] Clip N/A: Colon 04/21/2022 [facility]-F-26-2 35-C-R / / [id number] documented as of this encounter Advance Directives Documents on File Type Date Recorded 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
--- OUTSIDE RECORDS SUMMARY | 2023-05-10 19:49 | External Medical Summary | Summary of Care ---
Author Name Unknown Organization [facility] Address [place] [address] Care Team Providers Care Neuropsychology Division Chief Name Role Phone Vanita Dunn MD Primary Care Provid er Reason for Visit * Reason Comments Dosage Adjustment In Person (Anticoag Cl inic) Diabetes Follow-Up Encounter Details Date Type Department Care Team Description 09/15/2021 Office Visit Pharmacy, [place] [address] [place] [address] [facility] [address] [place] [address] Type 2 diabetes mellitus with hemoglobin A1c goal of less than 7.0% ([facility])* Allergies Active Allergy Reactions Severity [...] 120 Vial 11 10/02/2019 Active nystatin (NYSTOP) 290174 UNIT/GM powder Apply topically to affected area [...] 60 Each 3 07/27/2020 Active Dexcom G6 Mathematics Professor Device Use as directed. To test [...] Strip 3 10/29/2020 Active OneTouch Delica Plus [id number] TESTING once daily 100 Each 10/29/2020 Active [...] pain 01/24/2012 01/17/2017 Genetic Sleep Disorder Research Other*[id number] 05/13/2011 04/07/2016 Obstructive sleep apnea 01/18/2011 12/27/19 [...] this encounter Progress Notes * Indira Hudson, [facility] - 09/15/2021 1:05 PM EST Medication Therapy Disease Management Clinic - Diabetes Management Progress Note Shaina Bustos, identified by name and date of , is a 66 year old female being seen for diabetesmanagement/education. Patient presents for return diabetic visit. DIABETES: Current diabetic medications: STOP SS: Novolog, Inject 32 units before breakfast, 36 units before lunch, and 36 units before supper Lantus pen, 32 units daily Metformin ER 500mg daily Trulicity 4.5mg SQ weekly GFR 63.4 as of 06/16/21 Lifestyle: Diet: unchanged Glucose Review/SMBG: Hypoglycemia: Does your blood sugar go below 70 mg/dL? No Hyperglycemia symptoms present: none Lab Results Component Value Date/Time HEMOGLOBIN A1C - [facility] 7.1 (H) 08/19/2021 04:19 PM HEMOGLOBIN A1C - [facility] 7.4 (H) 06/10/2021 02:45 PM HEMOGLOBIN A1C - [facility] 8.5 (H) 03/08/2021 03:40 AM HEMOGLOBIN A1C - [facility] 9.9 (H) 07/06/2020 05:24 AM HEMOGLOBIN A1C - [facility] 11.0 (H) 05/26/2020 04:44 AM HEMOGLOBIN A1C - [facility] 9.9 (H) 04/28/2020 04:37 PM Lab Results Component Value Date/Time ESTIMATED GLOMERULAR FILTRATION RATE - [facility] 86 09/14/2021 03:22 PM ESTIMATED GLOMERULAR FILTRATION RATE - [facility] 63.4 06/16/2021 09:00 PM ESTIMATED GLOMERULAR FILTRATION RATE - [facility] 79.5 06/10/2021 02:45 PM ESTIMATED GLOMERULAR FILTRATION RATE - [facility] >60.0 09/24/2020 05:16 PM ESTIMATED GLOMERULAR FILTRATION RATE - [facility] >60.0 09/23/2020 02:36 PM ESTIMATED GLOMERULAR FILTRATION RATE - [facility] >60.0 08/21/2020 04:35 PM ESTIMATED GLOMERULAR FILTRATION RATE - [facility] >60.0 06/20/2013 10:18 AM ESTIMATED GLOMERULAR FILTRATION RATE - [facility] >60.0 10/18/2012 09:15 AM ESTIMATED GLOMERULAR FILTRATION RATE - [facility] >60.0 04/06/2012 09:27 AM Lab Results Component Value Date/Time CREATININE - [facility] 0.7 09/14/2021 03:22 PM CREATININE - [facility] 0.9 06/16/2021 09:00 PM CREATININE - [facility] 0.8 06/10/2021 02:45 PM CREATININE - [facility] 0.6 09/24/2020 05:16 PM CREATININE - [facility] 0.6 09/23/2020 02:36 PM CREATININE - [facility] 0.7 08/21/2020 04:35 PM No results found for: HEMOGLOBIN A1C POCT Lab Results Component Value Date/Time CREATININE - [facility] 0.7 09/14/2021 03:22 PM CREATININE - [facility] 0.9 06/16/2021 09:00 PM CREATININE - [facility] 0.8 06/10/2021 02:45 PM CREATININE - [facility] 0.6 09/24/2020 05:16 PM CREATININE - [facility] 0.6 09/23/2020 02:36 PM CREATININE - [facility] 0.7 08/21/2020 04:35 PM CREATININE, RANDOM URINE - [facility] 115 01/11/2019 01:29 PM CREATININE, RANDOM URINE - [facility] 81 02/03/2017 09:58 AM CREATININE, RANDOM URINE - [facility] 168 08/25/2015 01:56 PM CREATININE-OUTSIDE LAB 0.80 08/09/2021 12:00 AM CREATININE-OUTSIDE LAB 0.77 08/24/2018 12:00 AM CREATININE-OUTSIDE LAB 0.82 07/19/2018 12:00 AM HYPERTENSION: Patient on ACEi/ARB: no, BP at goal BP Readings from Last 3 Encounters: 09/14/21 102/58 09/14/21 100/70 08/25/21 100/60 HYPERLIPIDEMIA: Patient is taking moderate or high intensity statin: yes HEALTH MAINTENANCE REVIEW: Health Maintenance Due Topic Date Due DIABETES-EYE EXAM 06/12/2019 Dexa Scan Never done Zoster Vaccines (3 of 3) 06/23/2020 COVID-19 Vaccine (3 - Booster for Moderna series) 06/22/2021 Depression Screening, Annual for Pts 12 and Over 07/27/2021 ASSESSMENT & PLAN: ICD-10-CM 1. Type 2 diabetes mellitus with hemoglobin A1c goal of less than 7.0% (HCC) E11.9 Complicating Factors: cirrhosis; poor historian; identifies the insulin via color (Novolog- orange;Lantus- juarez) Presents with . BG Readings Patient forgot Dexcom project development coordinator so unable to view BG. Denies hypoglycemia. A1C improved and is 7.1% but Hgb low (had labs yesterday and Hgb was 7.7 - will send to ordering provider so made aware. Hgb has been low and could be falsely lowering A1C. Medications Reviewed current regimen. Tolerating. Patient's believes patient taking metformin. Unable to assess so will not make change at this time. Patient to contact [...] SQ weekly GFR 86 as of 09/14/21 HEALTH MAINTENANCE INTERVENTIONS: Labs: Up to Date Immunizations: deferred due to time constraints Foot Exam: Up to Date Eye Exam: reports due for eye exam but she reports she had it- she will check with her eye doctor FOLLOW UP: Return to clinic in 8 weeks Next Office Visit: 11/10/2021 Scheduled Provider(s): [facility] Indira Hudson [facility] Clinical Pharmacist - Workshop Manager Medication Therapy Management Clinic 09/15/2021, 1:05 PM documented in this encounter Plan of Treatment Upcoming Encounters Date Type Specialty Care Team Description 09/20/2021 [facility] Visit [facility] July Poe RN [address] [place] [address] 09/23/2021 Office Visit Cardiology Quyen Canseco CRNP [address] [place] [address] 09/27/2021 Home Visit [facility] Joselin Dawosn CRNP [address] [place] [address] 10/20/2021 Immunization/Injecti on Hematology Oncology Nurse, Med 4 200 [facility], [place] [address] 10/22/2021 Office Visit Sleep Disorders Love Francisco DO [address] [place] [address] 11/02/2021 Imaging Radiology 11/10/2021 Office Visit Pharmacy [facility] [address] [place] [address] 12/22/2021 Office Visit Endocrinology Alberta Duque PA-C [address] [facility] [address] 12/23/2021 Office Visit Gastroenterology Lyssa Stout CRNP 132 [facility] [place] [address] 01/04/2022 Office Visit Hematology Oncology Tono Sanchez MD 200 [facility] [place] [facility] [place] [address] 03/24/2022 Office Visit Pulmonary Reynaldo Marquez MD [address] [facility], [place] [address] 06/24/2022 Office Visit [facility] Disorders [facility] Francisco DO [address] [facility] [address] Scheduled Procedures Name Priority Associated Diagnoses Date/Ti [...] of this encounter Implants Implanted Type Area Forex Trader Device Identifier Shelf Expiration Date Model / Serial / Lot Microtech Sure Clip Implanted:Qty: 2 on 06/03/2020 by Janis Hatch DO at OR [facility] Clip N/A: Colon 04/21/2022 [facility]-F-26-2 35-C-R / / [id number] documented as of this encounter Visit Diagnoses Diagnosis Type 2 diabetes mellitus with hemoglobin A1c goal of less than 7.0% (HCC)- Primary documented in this encounter Advance Directives Documents on File Type Date Recorded Patient Dynamometer Mechanic 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 WILL AND HEALTH CARE POA Power of [facility] 04/29/2021 12:00 AM TOM R OF DIRECTOR OF RESERVATIONS HEALTH CARE POA Advanced Directive 04/01/2021 1:14 [...] File Name Relationship Healthcare Agent [facility] Communication Syed Bustos Spouse Emergency Contact Care Teams Neuropsychology Division Chief Relationship Specialty Start Date End Date Vanita Dunn MD [address], [place] [address] PCP - General Family Medicine 03/16/21 documented as of this encounter
--- OUTSIDE RECORDS SUMMARY | 2023-05-10 19:49 | External Medical Summary ---
Author Name Unknown Address Unknown Organization K01:[facility] [place] [facility] [address] [facility] [address] [place] [address] Laboratory Report Ordering Provider Test Date Status ADELA POOLE 09/20/2021 13:18:26 Final Observation Date Value Abnormality Reference (Units ) Status WBC, Total 09/20/2021 13:18:26 3.72 Below low normal 4. 00-10.80 (K/uL) Final RBC 09/20/2021 13:18:26 2.66 Below low normal 3.8 5-5.15 (M/uL) Final Hemoglobin 09/20/2021 13:18:26 7.6 Below low normal 12 .0-15.3 (g/dL) Final HCT 09/20/2021 13:18:26 26.9 Below low normal 36. 0-45.2 (%) Final MCV 09/20/2021 13:18:26 101.1 Above high normal 81 .5-97.5 (fL) Final MCH 09/20/2021 13:18:26 28.6 27.0-34.0 (pg) Final MCHC 09/20/2021 13:18:26 28.3 Below low normal 32. 0-36.0 (g/dL) Final RDW 09/20/2021 13:18:26 20.2 Above high normal 11 .5-15.5 (%) Final MPV 09/20/2021 13:18:26 Final Performing Location [facility] [place] [address] [place] [address]
--- OUTSIDE RECORDS SUMMARY | 2023-05-10 19:49 | External Medical Summary | Summary of Care ---
Author Name Unknown Organization [place] [address] Care Team Providers Care Shipfitters Supervisor Name Role Phone Vanita Dunn MD Primary Care Provid er Reason for Visit * Reason Onset Date Comments Medication Update 09/14/2021 Encounter Details Date Type Department Care Team Description 09/14/2021 Telephone Gastroenterology, [facility] [address] [facility] [place] [address] Lyssa Stout CRNP 132 [place] [address] Medication Update Allergies Active Allergy Reactions Severity [...] 120 Vial 11 10/02/2019 Active nystatin (NYSTOP) 502345 UNIT/GM powder Apply topically to affected area [...] 60 Each 3 07/27/2020 Active Dexcom G6 Search Strategist Device Use as directed. To test blood [...] Strip 3 10/29/2020 Active OneTouch Delica Plus Gcrevo52G TESTING once daily 100 Each 3 10/29/2020 [...] pain 01/24/2012 01/17/2017 Genetic Sleep Disorder Research Other*[id number] 05/13/2011 04/07/2016 Obstructive sleep apnea 01/18/2011 12/27/19 [...] medication. [facility] I tried calling today however kept on getting busy dial tones. Please scanthe list of medications after this is obtain so we can update her medication list. ZAK Schreiber documented in this encounter Plan of Treatment Upcoming Encounters Date Type Specialty Care Team Description 09/17/2021 Office Visit Family Medicine Brianne Pal PA-C [address] [place] [address] 09/20/2021 Office Visit Family Medicine Carter Chan MD [address] [facility] [place] [address] 09/20/2021 [facility] July Poe RN [address] [facility] [place] [address] 09/23/2021 Office Visit Cardiology Quyen Canseco CRNP [address] [facility] [place] [address] 09/27/2021 Home Visit [facility] Joselin Dawson CRNP [address] [facility] [place] [address] 10/20/2021 Immunization/Injecti on Hematology Oncology Nurse, Med 4 [address] [facility], [place] [address] 10/22/2021 Office Visit Sleep Disorders Love Francisco DO [facility] [place] [address] 11/02/2021 Imaging Radiology 11/10/[address]21 [address] [facility] [address] [facility] [address] 12/22/2021 Office Visit Endocrinology Alberta Duque PA-C [address] [place] [address] 12/23/2021 Office Visit Gastroenterology Lyssa Stout CRNP 132 [place] [address] 01/04/2022 Office Visit Hematology Oncology Tono Sanchez MD [address] [place] [address] 03/24/2022 Office Visit Pulmonary Reynaldo Marquez MD [address], [place] [id number] 06/24/2022 Office Visit Sleep Disorders Love Francisco DO 132 [place] [address] Scheduled Procedures Name Priority Associated Diagnoses Date/Ti [...] of this encounter Implants Implanted Type Area Aemt Device Identifier Shelf Expiration Date Model / Serial / Lot Microtech Sure Clip Implanted:Qty: 2 on 06/03/2020 by Janis Hatch DO at OR [facility] Clip N/A: Colon 04/21/2022 [facility]-F-26-2 35-C-R / / [id number] documented as of this encounter Advance Directives Documents on File Type Date Recorded 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
--- OUTSIDE RECORDS SUMMARY | 2023-05-10 19:49 | External Medical Summary ---
Author Name Unknown Address Unknown Organization K01[place] [place] [address] [facility] [address] Laboratory Report Ordering Provider Test Date Status ADELA POOLE 09/20/2021 13:18:26 Final Observation Date Value Abnormality Reference (Units ) Status SYNC LEUKOCYTES IN BLOOD BY AUTOMATED COUNT 09/20/2021 13:18:26 3.72 Below low normal 4.00-10.80 (K/uL) Final Segs 09/20/2021 13:18:26 54.3 40.0-75.0 (%) Final Lymphs % 09/20/2021 13:18:26 15.9 Below low normal 18.0-42.0 (%) Final Monos 09/20/2021 13:18:26 18.0 Above high normal 1.0-11.0 (%) Final Eosinophils 09/20/2021 13:18:26 10.2 Above high normal 0.0-6.0 (%) Final Basos 09/20/2021 13:18:26 0.8 0.0-2.0 (%) Final Immature Granulocyte, Percent 09/20/2021 13:18:26 0.8 0.0-2.0 (%) Final Absolute Segs 09/20/2021 13:18:26 2.02 1.80-7.70 (K/uL) Final Lymphs, absolute 09/20/2021 13:18:26 0.59 Below low normal 1.00-4.80 (K/ul) Final Monos, Abs 09/20/2021 13:18:26 0.67 0.00-1.10 (K/uL) Final Eos, Abs 09/20/2021 13:18:26 0.38 0.00-0.70 (K/uL) Final Basos, Abs 09/20/2021 13:18:26 0.03 0.00-0.20 (K/uL) Final Immature Granulocytes, Number 09/20/2021 13:18:26 0.03 0.00-0.20 (K/uL) Final Performing Location [facility] [place] [facility] [address] [facility] [address]
--- OUTSIDE RECORDS SUMMARY | 2023-05-10 19:51 | External Medical Summary | Summary of Care ---
Author Name Unknown Organization [place] [address] Care Team Providers Care Head Butler Name Role Phone Vanita Dunn MD Primary Care Provid er Reason for Visit * Reason Onset Date Comments Health Maintenance 09/16/2021 Encounter Details Date Type Department Care Team Description 09/16/2021 Telephone [facility] [address] [place] [address] Vanita Dunn MD [address] [place] [address] Health Maintenance Allergies Active Allergy [...] 120 Vial 11 10/02/2019 Active nystatin (NYSTOP) 041279 UNIT/GM powder Apply topically to affected area [...] 60 Each 3 07/27/2020 Active Dexcom G6 Project Manager/Design Manager Device Use as directed. To test [...] Strip 3 10/29/2020 Active OneTouch Delica Plus Jroudo89L TESTING once daily 100 Each 10/29/2020 Active [...] of heparin. 1 Each 0 03/12/2021 Active Furosemide 20 MG Oral Tablet (Lasix) Take 1 Tab by mouth daily as needed. EDEMA 0 03/26/2021 Active NovoLOG FlexPen 100 UNIT/ML Subcutaneous Solution [...] movements daily 240 mL 3 09/16/2021 Active documented as of this encounter (statuses [...] pain 01/24/2012 01/17/2017 Genetic Sleep Disorder Research Other*[id number] 05/13/2011 04/07/2016 Obstructive sleep apnea 01/18/2011 12/27/19 [...] Telephone Encounter - Rosy Sheehan LPN - 09/16/2021 1:31 PM EST Care Gaps Comprehensive Care Outreach Last Office/Telemedicine Visit: Last Office/Telemedicine Visit: 07/28/2021 Last Office/Telemedine Visit Annual Wellness: due Next Office Visit:Next Office Visit: 09/20/2021 Scheduled Provider(s): Carter Chan MD Reviewed Health Maintenance below Health Maintenance Topic Date Due DIABETES-EYE EXAM 06/12/2019 Dexa Scan Never done Zoster Vaccines (3 of 3) 06/23/2020 COVID-19 Vaccine (3 - Booster for Moderna series) 06/22/2021 BREAST CANCER SCREENING DISCUSSION YEARLY AGES 40-75 09/09/2022 Care Gap Outreach Action Taken: Left message documented in this encounter Plan of Treatment Upcoming Encounters Date Type Specialty Care Team Description 09/17/2021 Office Visit Family Medicine Brianne Pal PA-C [address] [place] [address] 09/20/2021 Office Visit Family Medicine Carter Chan MD [address] [place] [address] 09/20/2021 Home Visit [facility] July Poe RN 132 [facility] [place] [id number] 09/23/2021 Office Visit Cardiology Quyen Canseco CRNP 132 [facility] [place] [address] 09/27/2021 Home Visit [facility] Joselin Dawson CRNP 132 [facility] [place] [address] 10/20/2021 Immunization/Injecti on Hematology Oncology Nurse, Med [address] [place] [address] 10/22/2021 Office Visit Sleep Disorders Love Francisco DO 132 [facility] [place] [address] 11/02/2021 Imaging Radiology 11/10/2021 Office Visit Pharmacy [facility] [address] [place] [address] 12/22/2021 Office Visit Endocrinology Alberta Duque PA-C [address] [place] [address] 12/23/2021 Office Visit Gastroenterology Lyssa Stout CRNP [address] [facility] [place] [address] 01/04/2022 Office Visit Hematology Oncology Tono Sanchez MD 200 [place] [address] 03/24/2022 Office Visit Pulmonary Reynaldo Marquez MD [address] [place], [place] [address] 06/24/2022 Office Visit Sleep Disorders Love Francisco, DO [address] [facility] [place] [address] Scheduled Procedures Name Priority Associated Diagnoses Date/Ti [...] of this encounter Implants Implanted Type Area Magazine Publisher Device Identifier Shelf Expiration Date Model / Serial / Lot Microtech Sure Clip Implanted:Qty: 2 on 06/03/2020 by Janis Hatch DO at OR [facility] Clip N/A: Colon 04/21/2022 [facility]-F-26-2 35-C-R / / [id number] documented as of this encounter Advance Directives Documents on File Type Date Recorded 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
--- OUTSIDE RECORDS SUMMARY | 2023-05-10 19:51 | External Medical Summary | Summary of Care ---
Author Name Unknown Organization [facility] Address [place] [address] Care Team Providers Care Compliance Advisor Name Role Phone Vanita Dunn MD Primary Care Provid er Encounter Details Date Type Department Care Team Description 09/16/2021 [facility] [address] [place] [address] Connie Arguello, UMA [address] [place] [address] Other cerebral palsy (HCC)* Allergies Active Allergy [...] 120 Vial 11 10/02/2019 Active nystatin (NYSTOP) 197253 UNIT/GM powder Apply topically to affected area [...] 60 Each 3 07/27/2020 Active Dexcom G6 Shoe Reconditioner Device Use [...] Strip 3 10/29/2020 Active OneTouch Delica Plus Qqggxx93C TESTING once daily 100 Each 10/29/2020 Active [...] swelling). EDEMA 30 Tablet 2 09/16/2021 Active documented as of this encounter [...] pain 01/24/2012 01/17/2017 Genetic Sleep Disorder Research Other*[id number] 05/13/2011 04/07/2016 Obstructive sleep apnea 01/18/2011 12/27/19 [...] as of this encounter Progress Notes * Connie Arguello RN - 09/16/2021 1:51 PM EST Case Management Assessment-spoke with patient & her Syed-SNP annual completed, confirmed as of 09/11/21, patient now has [facility] SNP HX: Cerebral palsy, DM, Cirrhosis of the Liver, NG, Asthma, obesity, diastolic failure, HTN, Fibromyalgia Has a living will on file in [facility] COVID: Had 2 doses, had flu flu shot on 06/10/21 Is this call for a hospital, assisted or rehab facility discharge to home? No S: Reports: Patient denies SOB or angina Has chronic swelling to her legs, says the right is worse than the left, no worse than what it has been Has a chronic barking type cough, brings up some whitish sputum at times Using CPAP with O2 at 2 liters at night Per [facility] notes, pulmonary ordered patient NIV in July, [facility] Patient called, was told they have been in contact with the pulmonary office today [facility] mentions that they need additional documentation before the NIV can be placed Patient has a fair appetite, patient states she is currently being treated for an UTI Bowels are moving every 2-3 days Per GI notes patient is to be on Lactulose daily, patient says she has not been taking it-message to GI, will make patient aware of GI's recommendations No complaints of pain, no skin issues Patient's blood sugars running in the 200's, being followed by [facility] Patient lives with Syed in a house Patient is non-ambulatory, needs assistance with most of her care, helps with medications Patient has a hospital bed, wheel chair & candace lift Patient has a caregiver that comes into the home 40 hours a week thru [employer] Explained to patient that she needs to set up appointment with a provider in the clinic, once has been set up per [facility] Referral called to [facility] home O: Phone visit for SNP assessment. Medications: medication reconciliation completed with , patient not taking Lactulose as ordered and takes all medications as prescribed. Does this patient qualify for an annual wellness visit? No A: Patient Centered Prioritized Goals: prevent future UTI's, take medications as prescribed, stay safe in her home, prevent hospitalization Exacerbations have been prevented, minimized or reduced in severity. Co-morbid conditions identified and managed. Patient/ caregiver demonstrates adherence to treatment plan. Identified Barriers: Patient/caregiver's lack of understanding of their condition and prescribed treatment plan FUNCTIONAL STATUS: (Definition - assess ability to patient to manage their own care, includes evaluation of activities of daily living, and instrumental activities of daily living, and cognitive abilities status) ADL'S - Needs Assistance With: Bathing, Dressing, Toileting, Transferring and Continence IADL'S - Needs Assistance With: Grocery Shopping, Cooking food, Routine Housework, Using telephone, Taking medications, Attending to safety and Managing money Cognitive and Mental Health: denies problems, alert and oriented x 3 and able to communicate, understand instructions, process information. P: Radiosonde Specialist Interventions: Encouraged patient/ to call with increased SOB, cough, fever,chills, skin breakdown Encouraged patient to change positions every 2 hours Referral called into [facility] Reviewed s/s and prevention of UTI: Symptoms: -burning with urination -increased urination -cloudy urine -dark urine -foul smelling urine -fever -weakness/change in mental status Prevention: -drink plenty of fluids -wear cotton underwear -wipe from front to back -avoid delayed bladder emptying Reinforced sodium restriction Reinforced CHO consistency Reinforced safety education / fall prevention Reinforced medication regimen - timing / dosing / purpose-encouraged patient to take her Lactulose as prescribed Take medications as prescribed Discussed the importance of safety precautions Keep f/u appointments PCP follow up appointment Advised to call office for any change in health status or questions concerning care Encouraged patient to call wrapper caser with any questions/concerns at [phone]. Office Hours: Mon- 8-8 pm, Monday 8-5 pm, [facility] weekend clinic hours: Saturdays 8-5, Sundays 8-5 PCP Notified of enrollment in CM/HM program: Yes SNP Member? Yes Is Provider in agreement with POC? Yes Re-evaluation of plan of care and progress towards goals achievement: Plan to call patient in 7-14 days to reassess and update plan of care, verbalizes understanding andagrees with plan. Connie Arguello RN Outpatient Radiosonde Specialist documented in this encounter Plan of Treatment Upcoming Encounters Date Type Specialty Care Team Description 09/17/2021 Office Visit Family Medicine Brianne Pal PA-C [address] [place] [address] 09/20/2021 Office Visit Family Medicine Carter Chan MD [address] [place] [address] 09/20/2021 [facility] Visit [facility] July Poe RN [address] [place] [address] 09/23/2021 Office Visit Cardiology Quyen Canseco CRNP [address] [place] [address] 09/27/2021 Home Visit [facility] Joselin Dawson CRNP [address] [place] [address] 10/20/2021 Immunization/Injecti on Hematology Oncology Nurse, Med 4 [address] [facility] [place] [address] 10/22/2021 Office Visit Sleep Disorders Love Francisco, DO 132 [place] [address] 11/02/2021 Imaging Radiology 11/10/2021 Office Visit Pharmacy [facility] [address] [place] [address] 12/22/2021 Office Visit Endocrinology Alberta Duque PA-C [address] [place] [address] 12/23/2021 Office Visit Gastroenterology Lyssa Stout CRNP [address] [place] [address] 01/04/2022 Office Visit Hematology Oncology Tono Sanchez MD 200 [place] [address] 03/24/2022 Office Visit Pulmonary Reynaldo Marquez MD [address] [place] [address] 06/24/2022 Office Visit Sleep Disorders Love Francisco, DO [address] [facility] [address] Scheduled Procedures Name Priority Associated Diagnoses Date/Ti [...] this encounter Implants Implanted Type Area Chemical Compounder Device Identifier Shelf Expiration Date Model / Serial / Lot Microtech Sure Clip Implanted:Qty: 2 on 06/03/2020 by Janis Hatch DO at OR [facility] Clip N/A: Colon 04/21/2022 [facility]-F-26-2 35-C-R / / [id number] documented as of this encounter Visit Diagnoses Diagnosis Other cerebral palsy (HCC)- Primary documented in this encounter Advance Directives Documents on File Type Date Recorded Patient Production Artist 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 WILL AND HEALTH CARE POA Power of Service Technician Copier 04/29/2021 12:00 AM TOM R OF STAFF DEVELOPMENT NURSE HEALTH CARE POA Advanced Directive 04/01/2021 1:14 [...] on File Name Relationship Healthcare Agent [facility] Communication Syed Bustos Spouse Emergency Contact Care Teams Compliance Advisor Relationship Specialty Start Date End Date Vanita Dunn MD [address] [place] [address] PCP - General Family Medicine 03/16/21 documented as of this encounter
--- OUTSIDE RECORDS SUMMARY | 2023-05-10 19:51 | External Medical Summary | Summary of Care ---
Author Name Unknown Organization [place] [address] Care Team Providers Care Metaphysician Name Role Phone Vanita Dunn MD Primary Care Provid er Reason for Visit * Reason Onset Date Comments Advice 09/16/2021 Encounter Details Date Type Department Care Team Description 09/16/[address] [facility] [address] [place] [address] Connie Arguello, UMA [address] [place] [address] Advice Allergies Active Allergy [...] 120 Vial 11 10/02/2019 Active nystatin (NYSTOP) 852930 UNIT/GM powder Apply topically to affected area [...] 60 Each 3 07/27/2020 Active Dexcom G6 Instrumentation Supervisor Device Use as directed. To test [...] Strip 3 10/29/2020 Active OneTouch Delica Plus Gbsjfh58L TESTING once daily 100 Each 3 10/29/2020 [...] pain 01/24/2012 01/17/2017 Genetic Sleep Disorder Research Other*[id number] 05/13/2011 04/07/2016 Obstructive sleep apnea 01/18/2011 12/27/19 [...] EST Nurses - can we please obtain [facility] ED records and scan ZAK Schreiber * Telephone Encounter - Connie Arguello RN - 09/16/2021 1:48 PM EST Patient confirmed that she did go to the ER in [place]-took a blood & urine sample, sent herhome, said she is on an vtprqpszyu-UYM-Lmrlvwrzs at Home will be following patient also-thanks [...] bleeding. Did she ever make it to [place] ER as plan? If so, I will [...] patient to do going forward-patient goes to [facility] pharmacy-thanks Connie Arguello, RN documented in this encounter Plan of Treatment Upcoming Encounters Date Type Specialty Care Team Description 09/17/2021 Office Visit Family Medicine Brianne Pal PA-C [address] [facility] [place] [address] 09/20/2021 Office Visit Family Medicine Carter Chan MD [address] [facility] [place] [address] 09/20/2021 [facility] Visit [facility] July Poe RN 132 [facility] [place] [address] 09/23/2021 Office Visit Cardiology Quyen Canseco CRNP [address] [facility] [place] [address] 09/27/2021 Home Visit [facility] Joselin Dawson CRNP [address] [facility] [place] [address] 10/20/2021 Immunization/Injecti on Hematology Oncology Nurse, Med 4 [address] [facility], [place] [address] 10/22/2021 Office Visit Sleep Disorders Love Francisco DO [address] [place] [address] 11/02/2021 Imaging Radiology 11/10/2021 Office Visit Pharmacy [facility] [address] [facility] [place] [address] 12/22/2021 Office Visit Endocrinology Alberta Duque PA-C [address] [place] [address] 12/23/2021 Office Visit Gastroenterology Lyssa Stout CRNP 132 [place] [address] 01/04/2022 Office Visit Hematology Oncology Tono Sanchez MD [address] [place] [address] 03/24/2022 Office Visit Pulmonary Reynaldo Marquez MD [address] [place] [address] 06/24/2022 Office Visit Sleep Disorders Love Francisco DO [address] [place] [address] Scheduled Procedures Name Priority Associated Diagnoses Date/Ti [...] this encounter Implants Implanted Type Area Senior Data Developer Device Identifier Shelf Expiration Date Model / Serial / Lot Microtech Sure Clip Implanted:Qty: 2 on 06/03/2020 by Janis Hatch DO at OR H Clip N/A: Colon 04/21/2022 [facility]-F-26-2 35-C-R / / [id number] documented as of this encounter Advance Directives Documents on File Type Date Recorded Patient Verification Specialist 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 AND HEALTH CARE POA Power of Manager Media Relations 04/29/2021 12:00 AM TOM R OF CUSTOMER CONSULTANT HEALTH CARE POA Advanced Directive 04/01/2021 [...] Syed Bustos Spouse Emergency Contact Care Teams Metaphysician Relationship Specialty Start Date End Date Vanita Dunn MD [address] [place] [address] PCP - General Family Medicine 03/16/21 documented as of this encounter
--- OUTSIDE RECORDS SUMMARY | 2023-05-10 19:51 | External Medical Summary | Summary of Care ---
Author Name Unknown Organization [place] [address] Care Team Providers Care Wastewater Treatment Plant Instructor Name Role Phone Vanita Dunn MD Primary Care Provid er Reason for Visit * Reason Onset Date Comments Medication Refill 09/16/2021 Encounter Details Date Type Department Care Team Description 09/16/2021 Shoe Salesperson Telephone [facility] [address] [place] [address] Connie Arguello, UMA [address] [place] [address] Medication Refill Allergies Active Allergy [...] 120 Vial 11 10/02/2019 Active nystatin (NYSTOP) 497224 UNIT/GM powder Apply topically to affected area [...] 60 Each 3 07/27/2020 Active Dexcom G6 Avid Editor Device Use as directed. To test blood [...] Strip 3 10/29/2020 Active OneTouch Delica Plus [id number] TESTING once daily 100 Each 10/29/2020 Active [...] swelling). EDEMA 30 Tablet 2 09/16/2021 Active Furosemide 20 MG Oral Tablet (Lasix) Take 1 Tab by mouth daily as needed. EDEMA 0 03/26/2021 2 Discontinu ed(Refill) documented as of this [...] pain 01/24/2012 01/17/2017 Genetic Sleep Disorder Research Other*[id number] 05/13/2011 04/07/2016 Obstructive sleep apnea 01/18/2011 12/27/19 [...] encounter Miscellaneous Notes * Telephone Encounter - Maikel Caceres DO - 09/16/2021 2:06 PM EST Signed Prescriptions: Disp Refills Furosemide 20 MG Oral Tablet (Lasix) 30 Tab*2 Sig: Take 1 Tablet by mouth daily as needed (lower extremity swelling). EDEMA Authorizing Provider: MAIKEL CACERES * Telephone Encounter - Connie Arguello RN - 09/16/2021 1:44 PM EST Patient needs a refill for the Lasix-please send to [facility] in [place] Thanks Connie Arguello RN documented in this encounter Plan of Treatment Upcoming Encounters Date Type Specialty Care Team Description 09/17/2021 Office Visit Family Medicine [facility] [address] [facility] [address] 09/20/2021 Office Visit Family Medicine Carter Chan [facility] [address] [facility] [address] 09/20/2021 [facility] Visit [facility] July oPe RN [address] [place] [address] 09/23/2021 Office Visit [facility] [place] [address] 09/27/2021 [facility] Visit [facility] Dawson [facility] [place] [address] 10/20/2021 Immunization/Injecti on Hematology Oncology Nurse, Med 4 200 [facility] [place] [address] 10/22/2021 Office Visit Sleep Disorders Love Francisco DO [address] [place] [address] 11/02/2021 Imaging Radiology 11/10/2021 Office Visit Pharmacy [place] [address] [facility] [place] [address] 12/22/2021 Office Visit Endocrinology Alberta Duque PA-C [address] [place] [address] 12/23/2021 Office Visit Gastroenterology Lyssa Stout CRNP 132 [facility] [place] [address] 01/04/2022 Office Visit Hematology Oncology Tono Sanchez MD 200 [facility] [place] [address] 03/24/2022 Office Visit Pulmonary Reynaldo Marquez MD [address] [place] [address] 06/24/2022 Office Visit Sleep Disorders Love Francisco DO 132 [facility] [place] [address] Scheduled Procedures Name Priority Associated Diagnoses Date/Ti [...] of this encounter Implants Implanted Type Area Shield Operator Device Identifier Shelf Expiration Date Model / Serial / Lot Microtech Sure Clip Implanted:Qty: 2 on 06/03/2020 by Janis Hatch DO at [facility] Clip N/A: Colon 04/21/2022 [facility]-F-26-2 35-C-R / / [id number] documented as of this encounter Advance Directives Documents on File Type Date Recorded Patient Lining Sewer 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 AND HEALTH CARE POA Power of Distribution Center Administrator 04/29/2021 12:00 AM TOM R OF [facility] C[facility] POA Advanced Directive 04/01/2021 1:14 [...] Syed Bustos Spouse Emergency Contact Care Teams Wastewater Treatment Plant Instructor Relationship Specialty Start Date End Date Vanita Dunn MD [address] [place] [address] PCP - General Family Medicine 03/16/21 documented as of this encounter
--- OUTSIDE RECORDS SUMMARY | 2023-05-10 19:51 | External Medical Summary | Summary of Care ---
Author Name Unknown Organization [place] [address] Care Team Providers Care Emulsion Coater Name Role Phone Vanita Dunn MD Primary Care Provid er Reason for Visit * Reason Onset Date Comments Advice 09/16/2021 Encounter Details Date Type Department Care Team Description 09/16/2021 Power Truck Driver Telephone [facility] [address] [place] [address] Connie Arguello, UMA [address] [place] [address] Advice Allergies Active Allergy Reactions [...] 120 Vial 11 10/02/2019 Active nystatin (NYSTOP) 897035 UNIT/GM powder Apply topically to affected area [...] 60 Each 3 07/27/2020 Active Dexcom G6 Sound System Installer Device Use as directed. To test [...] Strip 3 10/29/2020 Active OneTouch Delica Plus Gxnnbi73X TESTING once daily 100 Each 3 10/29/2020 [...] movements daily 240 mL 3 09/16/2021 Active Lactulose 10 GM/15ML Oral Solution (Constulose) 0 [...] pain 01/24/2012 01/17/2017 Genetic Sleep Disorder Research Other*[id number] 05/13/2011 04/07/2016 Obstructive sleep apnea 01/18/2011 12/27/19 [...] EST Nurses - can we please obtain [place] ED records and scan ZAK Schreiber * Telephone Encounter - Connie Arguello RN - 09/16/2021 1:48 PM EST Patient confirmed that she did go to the ER in [place]-took a blood & urine sample, sent herhome, said she is on an dozkkhqytu-JNO-Qusbjwbhe at Home will be following patient also-thanks Connie Arguello RN * Telephone Encounter - Lyssa ZAK Turner - 09/16/2021 1:17 PM EST She did [...] bleeding. Did she ever make it to [place] ER as plan? If so, I will [...] patient to do going forward-patient goes to [facility] pharmacy-thanks Connie Arguello RN documented in this encounter Plan of Treatment Upcoming Encounters Date Type Specialty Care Team Description 09/17/2021 Office Visit Family Medicine Brianne Pal PA-C [address] [place] [address] 09/20/2021 Office Visit Family Medicine Carter Chan MD [address] [place] [address] 09/20/2021 Home Visit [facility] July Poe RN 132 [facility] [place] [address] 09/23/2021 Office Visit Cardiology Quyen Canseco CRNP 132 [facility] [place] [address] 09/27/2021 Home Visit [facility] Joselin Dawson CRNP 132 [facility] [place] [address] 10/20/2021 Immunization/Injecti on Hematology Oncology Nurse, Med 4 [address], [place] [address] 10/22/2021 Office Visit Sleep Disorders Love Francisco DO 132 [facility] [place] [address] 11/02/2021 Imaging Radiology 11/10/2021 Office Visit Pharmacy [facility] [address] [place] [address] 12/22/2021 Office Visit Endocrinology Alberta Duque PA-C [address] [place] [address] 12/23/2021 Office Visit Gastroenterology Lyssa Stout CRNP [address] [place] [address] 01/04/2022 Office Visit Hematology Oncology Tono Sanchez MD 200 [facility] [place] [address] 03/24/2022 Office Visit Pulmonary Reynaldo [place] MD [address] [facility], [place] [address] 06/24/2022 Office Visit Sleep Disorders Love Francisco, DO [address] [place] [address] Scheduled Procedures Name Priority Associated Diagnoses Date/Ti [...] this encounter Implants Implanted Type Area Solutions Market Consultant Device Identifier Shelf Expiration Date Model / Serial / Lot Microtech Sure Clip Implanted:Qty: 2 on 06/03/2020 by Janis Hatch DO at OR [facility] Clip N/A: Colon 04/21/2022 [facility]-F-26-2 35-C-R / / [id number] documented as of this encounter Advance Directives Documents on File Type Date Recorded Patient Renewable Energy Division Manager 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 LIVING WILL AND HEALTH CARE POA Power Velocifyey 04/29/2021 12:00 AM TOM R Entrisphere [facility] POA Advanced Directive 04/01/2021 1:14 PM Advanced [...] Syed Bustos Spouse Emergency Contact Care Teams Emulsion Coater Relationship Specialty Start Date End Date Vanita Dunn MD [address], [place] [phone] PCP - General Family Medicine 03/16/21 documented as of this encounter
--- OUTSIDE RECORDS SUMMARY | 2023-05-10 19:52 | External Medical Summary | Summary of Care ---
Author Name Unknown Organization [place] [address] Care Team Providers Care Art Model Name Role Phone Vanita Dunn MD Primary Care Provid er Reason for Visit * Reason Onset Date Comments Advice 09/16/2021 Encounter Details Date Type Department Care Team Description 09/16/2021 Litigation Paralegal Telephone [facility] [address] [place] [address] Connie Arguello, UMA [address] [place] [address] Advice Allergies Active Allergy Reactions [...] 120 Vial 11 10/02/2019 Active nystatin (NYSTOP) 808530 UNIT/GM powder Apply topically to affected area [...] 60 Each 3 07/27/2020 Active Dexcom G6 Aerial Lineman Device Use as directed. To test blood [...] Strip 3 10/29/2020 Active OneTouch Delica Plus Resuhu81B TESTING once daily 100 Each 3 10/29/2020 [...] pain 01/24/2012 01/17/2017 Genetic Sleep Disorder Research Other*[id number] 05/13/2011 04/07/2016 Obstructive sleep apnea 01/18/2011 12/27/19 [...] Miscellaneous Notes * Telephone Encounter - Connie Arguello RN - 09/16/2021 1:48 PM EST Patient confirmed that she did go to the ER in [place]-took a blood & urine sample, sent herhome, said she is on an hekvqwwvha-SKU-Rbfcmzvlv at Home will be following patient also-thanks [...] bleeding. Did she ever make it to [place] ER as plan? If so, I will [...] patient to do going forward-patient goes to [facility] pharmacy-thanks Connie Arguello RN documented in this encounter Plan of Treatment Upcoming Encounters Date Type Specialty Care Team Description 09/17/2021 Office Visit Family Medicine Brianne Pal PA-C [address] [place] [address] 09/20/2021 Office Visit Family Medicine Carter Chan MD [address] [place] [address] 09/20/2021 Home Visit [facility] July Poe RN 132 [place] [address] 09/23/2021 Office Visit Cardiology Quyen Canseco CRNP 132 [place] [address] 09/27/2021 Home Visit [facility] Joselin Dawson CRNP 132 [facility] 10/20/2021 Immunization/Injecti on Hematology Oncology Nurse, Med 4 200 [place] [address] 10/22/2021 Office Visit Sleep Disorders Love Francisco DO 132 [facility] 11/02/2021 Imaging Radiology 11/10/2021 Office Visit Pharmacy [facility] [address] [place] [address] 12/22/2021 Office Visit Endocrinology Alberta Duque PA-C [address] [place] [address] 12/23/2021 Office Visit Gastroenterology Lyssa Stout CRNP 132 [facility] 01/04/2022 Office Visit Hematology Oncology Tono Sanchez MD 200 [place] [address] 03/24/2022 Office Visit Pulmonary Reynaldo Mar[place] MD [address] [place] [address] 06/24/2022 Office Visit Sleep Disorders Love Francisco, DO [address] [place] [address] Scheduled Procedures Name Priority Associated Diagnoses Date/Ti [...] of this encounter Implants Implanted Type Area Confectionery Drops Machine Operator Device Identifier Shelf Expiration Date Model / Serial / Lot Microtech Sure Clip Implanted:Qty: 2 on 06/03/2020 by Janis Hatch DO at OR [facility] Clip N/A: Colon 04/21/2022 [facility]-F-26-2 35-C-R / / [id number] documented as of this encounter Advance Directives Documents on File Type Date Recorded Patient Sole Stainer 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 LIVING WILL AND HEALTH CARE POA Power Deputy District Customs Director 04/29/2021 12:00 AM TOM [facility] POA Advanced Directive 04/01/2021 1:14 PM Advanced [...] Healthcare Agent [facility] p Communication Syed Bustos Spouse Emergency Contact Care Teams Art Model Relationship Specialty Start Date End Date Vanita Dunn MD [address] [place] [address] PCP - General Family Medicine 03/16/21 documented as of this encounter
--- OUTSIDE RECORDS SUMMARY | 2023-05-10 19:52 | External Medical Summary | Summary of Care ---
Author Name Unknown Organization [place] [address] Care Team Providers Care Crochet Machine Operator Name Role Phone Vanita Dunn MD Primary Care Provid er Reason for Visit * Reason Onset Date Comments Advice 09/16/2021 Encounter Details Date Type Department Care Team Description 09/16/[address] [facility] [address] [place] [address] Connie Arguello, UMA [address] [place] [address] Advice Allergies Active Allergy Reactions [...] 120 Vial 11 10/02/2019 Active nystatin (NYSTOP) 338281 UNIT/GM powder Apply topically to affected area [...] 60 Each 3 07/27/[address] Dexcom [address]6 [address] Driver Device Use as directed. To test [...] Strip 3 10/29/2020 Active OneTouch Delica Plus Ldmylj70X TESTING once daily 100 Each 3 10/29/2020 [...] pain 01/24/2012 01/17/2017 Genetic Sleep Disorder Research Other*[id number] 05/13/2011 04/07/2016 Obstructive sleep apnea 01/18/2011 12/27/19 [...] encounter Miscellaneous Notes * Telephone Encounter - Lyssa Mominn, ZAK - 09/16/2021 1:17 PM EST She did [...] bleeding. Did she ever make it to [place] ER as plan? If so, I will [...] do going forward-patient goes to [facility] pharmacy-thanks Connie Arguello RN documented in this encounter Plan of Treatment Upcoming Encounters Date Type Specialty Care Team Description 09/17/2021 Office Visit Family Medicine Brianne Pal PA-C [address] [place] [address] 09/20/2021 Office Visit Family Medicine Carter Chan MD [address] [place] [address] 09/20/2021 Home Visit [facility] July Poe RN [address] [place] [address] 09/23/2021 Office Visit Cardiology Quyen Canseco CRNP [address] [place] [address] 09/27/2021 [facility] [address] 10/20/2021 Immunization/Injecti on Hematology Oncology Nurse, Med 4 200 [facility] [place] [address] 10/22/2021 Office Visit Sleep Disorders Love Francisco DO 132 [facility] [place] [address] 11/02/2021 Imaging Radiology 11/10/2021 Office Visit Pharmacy [facility] [address] [place] [address] 12/22/2021 Office Visit Endocrinology Alberta Duque PA-C [address] [place] [address] 12/23/2021 Office Visit Gastroenterology Lyssa Stout [facility]NP 132 [facility] [address] 01/04/2022 Office Visit Hematology Oncology Tono Sanchez MD 200 [place] [address] 03/24/2022 Office Visit Pulmonary Reynaldo [place] MD [address] [place] [address] 06/24/2022 Office Visit [facility] Francisco [facility] [place] [address] Scheduled Procedures Name Priority Associated Diagnoses Date/Ti [...] of this encounter Implants Implanted Type Area Fresh Foods Clerk Device Identifier Shelf Expiration Date Model / Serial / Lot Microtech Sure Clip Implanted:Qty: 2 on 06/03/2020 by Janis Hatch DO at OR [facility] Clip N/A: Colon 04/21/2022 [facility]-F-26-2 35-C-R / / [id number] documented as of this encounter Advance Directives Documents on File Type Date Recorded Patient Plumber Maintenance 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 WILL AND HEALTH CARE POA Power of Hair Sample Matcher 04/29/2021 12:00 AM TOM R OF SYSTEMS INTEGRATION MANAGER HEALTH CARE POA Advanced Directive 04/01/2021 [...] Name Relationship Healthcare Agent [facility] p Communication Syed Bustos Spouse Emergency Contact Care Teams Crochet Machine Operator Relationship Specialty Start Date End Date Vanita Dunn MD [address] [place] [address] PCP - General Family Medicine 03/16/21 documented as of this encounter
--- OUTSIDE RECORDS SUMMARY | 2023-05-10 19:53 | External Medical Summary | Summary of Care ---
Author Name Unknown Organization [place] [address] Care Team Providers Care Senior Applications Developer Name Role Phone Vanita Dunn MD Primary Care Provid er Reason for Visit * Reason Onset Date Comments [facility]: Engagement 09/16/2021 Encounter Details Date Type Department Care Team Description 09/16/2021 Telephone [facility], [facility] [address] [place] [address] [facility] Nurse [facility] [address] [place] [address] [facility]: Engagement Allergies Active Allergy Reactions Severity Noted Date [...] 120 Vial 11 10/02/2019 Active nystatin (NYSTOP) 851559 UNIT/GM powder Apply topically to affected area [...] 60 Each 3 07/27/2020 Active Dexcom G6 Assembler Fishing Floats Device Use as directed. To test blood [...] Strip 3 10/29/2020 Active OneTouch Delica Plus Fedurv72N TESTING once daily 100 Each 3 10/29/2020 [...] 10 GM/15ML Oral Solution (Constulose) 0 08/11/2021 Active documented as of this encounter (statuses [...] pain 01/24/2012 01/17/2017 Genetic Sleep Disorder Research Other*[id number] 05/13/2011 04/07/2016 Obstructive sleep apnea 01/18/2011 12/27/19 [...] Telephone Encounter - Marie Johnson LPN - 09/16/2021 12:15 PM EST Spoke with Shaina about [facility] and the benefits of enrolling in the model of care and sheagrees to enroll at this time. Enrollment starts on 09/20/21 at 4pm July Poe RN 09/27/21 at 1130am Joselin CRESPO Spoke to spouse agreeable to date and times documented in this encounter Plan of Treatment Upcoming Encounters Date Type Specialty Care Team Description 09/20/2021 Home Visit [facility] July Poe RN [address] [place] [address] 09/23/2021 Office Visit Cardiology Quyen Canseco CRNP [address] [place] [address] 09/27/2021 [facility] Visit [facility] [address] [facility] [address] 10/20/2021 Immunization/Injecti on Hematology Oncology Nurse, Med 4 200 [place] [address] 10/22/2021 Office Visit Sleep Disorders Love Francisco DO 132 [facility] [place] [address] 11/02/2021 Imaging Radiology 11/10/2021 Office Visit Pharmacy [place] [address] [place] [address] 12/22/2021 Office Visit Endocrinology Alberta Duque PA-C [address] [place] [address] 12/23/2021 Office Visit [facility]astroenterology Lyssa Stout [facility] [place] [address] 01/04/2022 Office Visit Hematology Oncology Tono Sanchez MD [address] [facility] [place] [address] 03/24/2022 Office Visit Pulmonary Reynaldo [place]quez MD [address] [place] [address] 06/24/2022 Office Visit Sleep Disorders Love Francisco DO [address] [place] [address] Scheduled Procedures Name Priority Associated Diagnoses Date/Ti [...] of this encounter Implants Implanted Type Area Family And Consumer Science Professor Device Identifier Shelf Expiration Date Model / Serial / Lot Microtech Sure Clip Implanted:Qty: 2 on 06/03/2020 by Janis Hatch DO at OR [facility] Clip N/A: Colon 04/21/2022 [facility]-F-26-2 35-C-R / / [id number] documented as of this encounter Advance Directives Documents on File Type Date Recorded Patient Customer Operations Intern 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 WILL AND HEALTH CARE POA Power of Processing Manager 04/29/2021 12:00 AM TOM R OF COMMERCIAL LITIGATION ATTORNEY HEALTH CARE POA Advanced Directive 04/01/2021 [...] Bustos Spouse Emergency Contact Care Teams Senior Applications Developer Relationship Specialty Start Date End Date Vanita Dunn MD [address] [place], [place] [phone] PCP - General Family Medicine 03/16/21 documented as of this encounter
--- OUTSIDE RECORDS SUMMARY | 2023-05-10 19:53 | External Medical Summary | Summary of Care ---
Author Name Unknown Organization [place] [address] Care Team Providers Care Gore Inserter Name Role Phone Vanita Dunn MD Primary Care Provid er Reason for Visit * Reason Onset Date Comments [facility]: Engagement 09/16/2021 Encounter Details Date Type Department Care Team Description 09/16/2021 Telephone [facility], [facility] [address] [place] [address] [facility] Nurse [facility] [address] [place] [address] [facility]: Engagement Allergies Active Allergy [...] 120 Vial 11 10/02/2019 Active nystatin (NYSTOP) 330584 UNIT/GM powder Apply topically to affected area [...] 60 Each 3 07/27/2020 Active Dexcom G6 Multicraft Operator Device Use as directed. To test [...] Strip 3 10/29/2020 Active OneTouch Delica Plus Qevefi06J TESTING once daily 100 Each 3 10/29/2020 [...] pain 01/24/2012 01/17/2017 Genetic Sleep Disorder Research Other*[id number] 05/13/2011 04/07/2016 Obstructive sleep apnea 01/18/2011 12/27/19 [...] Home July Poe RN [address] [place] [address] 09/23/2021 Office Visit Cardiology Quyen Canseco CRNP [address] [place] [address] 09/27/2021 [facility] Visit [facility]elin Dawson [facility] [address] [facility] [address] 10/20/2021 Immunization/Injecti on Hematology Oncology Nurse, Med 4 200 [place] [address] 10/22/2021 Office Visit Sleep Disorders Love Francisco DO 132 [facility] [place] [address] 11/02/2021 Imaging Radiology 11/10/2021 Office Visit Pharmacy [place] [address] [place] [address] 12/22/2021 Office Visit Endocrinology Alberta Duque PA-C [address] [place] [address] 12/23/2021 Office Visit [facility]astroenterology [facility]sa Stout [facility] [place] [address] 01/04/2022 Office Visit Hematology Oncology Tono Sanchez MD 200 [place] [address] 03/24/2022 Office Visit Pulmonary Reynaldo [place] MD [address] [place] [address] 06/24/2022 Office Visit Sleep Disorders Love Francisco DO [address] [place] [address] Scheduled Procedures Name Priority Associated Diagnoses Date/Ti [...] encounter Implants Implanted Type Area Public Relations Professional Device Identifier Shelf Expiration Date Model / Serial / Lot Microtech Sure Clip Implanted:Qty: 2 on 06/03/2020 by Janis Hatch DO at OR [facility] Clip N/A: Colon 04/21/2022 [facility]-F-26-2 35-C-R / / [id number] documented as of this encounter Advance Directives Documents on File Type Date Recorded Patient Manager Finance 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 AND HEALTH CARE POA Power of Automatic Lathe Operator 04/29/2021 12:00 AM TOM R OF FLAVORINGS COMPOUNDER HEALTH CARE POA Advanced Directive 04/01/2021 1:14 [...] Syed Bustos Spouse Emergency Contact Care Teams Gore Inserter Relationship Specialty Start Date End Date Vanita Dunn MD [address] [place], [place] [phone] PCP - General Family Medicine 03/16/21 documented as of this encounter
--- OUTSIDE RECORDS SUMMARY | 2023-05-10 19:53 | External Medical Summary | Summary of Care ---
Author Name Unknown Organization [place] [address] Care Team Providers Care Web Pressman Name Role Phone Vanita Dunn MD Primary Care Provid er Reason for Visit * Reason Onset Date Comments Order Request 07/22/2021 NIV Encounter Details Date Type Department Care Team Description 07/22/2021 Telephone Pulmonary Medicine, [facility] [address] [facility] [place] [address] Reynaldo Marquez MD [address] [facility] [place] [address] Order Request (NIV) Allergies Active Allergy Reactions [...] 120 Vial 11 0 Active nystatin (NYSTOP) 970815 UNIT/GM powder Apply topically to affected area [...] of Breath, Informant: Pharmacy, Reported on 02/04/2021 Fluticasone-Salmet jayme 250-50 MCG/DOSE Inhalation Aerosol Powder Breath Activated (Advair Diskus)Indications :Moderate persistent asthma with acute exacerbation Inhale 1 Puff by mouth 2 times a day. 60 Each 3 0 Active Dexcom G6 Branch Service Associate Device Use as directed. To test [...] Strip 3 1 Active OneTouch Delica Plus [id number] TESTING once daily 100 Each 3 1 [...] of heparin. 1 Each 0 1 Active Furosemide 20 MG Oral Tablet (Lasix) Take 1 Tab by mouth daily as needed. EDEMA 0 1 Active NovoLOG FlexPen 100 UNIT/ML Subcutaneous Solution Pen-injector Inject under the skin three times a day before meals. Sliding scale 0 1 Active Trulicity 4.5 MG/0.5ML Subcutaneous [...] a meal 90 Tab 3 1 Active Lantus SoloStar 100 UNIT/ML Subcutaneous Solution Pen-injector (Insulin Glargine)Indicatio ns:Type 2 diabetes mellitus with hemoglobin A1c goal of less than 7.0% (HCC) inject 32 units under skin at bedtime 45 mL 3 1 Active Gabapentin 300 MG Oral [...] mouth daily. 1 Tab 0 2 022 Discontinued(Di scharged) vitamin c (ASCORBIC ACID) 500 MG Tablet Take 500 mg by mouth daily. 0 022 Discontinued(Di scharged) Blood Glucose Monitoring Suppl (BLOOD GLUCOSE MONITOR SYSTEM) w/Device KIT Use to test once per day. 1 Kit 0 0 022 Discontinued(Di scharged) silver sulfadiazine (SILVADENE) 1 % cream Apply topically to affected area daily. Apply to right great toe 50 g 0 0 022 Discontinued(Di scharged) BD Pen Needle Mini U/F 31G X [...] daily at noon. 0 022 Discontinued(Di scharged) Senna-Docusate Sodium 8.6-50 MG Oral Tablet Take 1 Tab by mouth daily. 90 Tab 0 1 021 Discontinued(Re fill) Tamsulosin HCl 0.4 MG Oral Capsule (Flomax)Indication [...] pain 01/24/2012 01/17/2017 Genetic Sleep Disorder Research Other*[id number] 05/13/2011 04/07/2016 Obstructive sleep apnea 01/18/2011 12/27/19 [...] Guzman LPN - 09/16/2021 11:30 AM EST [facility] states that OVN from 07-22-21 doesn't state [...] Home July Poe RN [address] [place] [address] 09/23/2021 Office Visit Cardiology Quyen Canseco CRNP [address] [place] [address] 09/27/2021 Home Visit [facility] Joselin Dawson CRNP [address] [place] [address] 10/20/2021 Immunization/Injecti on Hematology [facility]cology Nurse[facility] [address] 10/22/2021 Office Visit [facility] Francisco [facility] [address] [facility] [address] 11/02/2021 Imaging Radiology 11/10/2021 Office Visit [address] [address] 12/22/2021 Office Visit Endocrinology Alberta Duque PA-C [address] [place] [address] 12/23/2021 Office Visit [facility]astroenterology [facility] [address] [facility] [address] 01/04/2022 Office Visit Hematology Oncology Tono Sanchez MD [address] [place] [address] 03/24/2022 Office Visit Pulmonary Reynaldo Marquez MD [address] [place] [address] 06/24/2022 Office Visit Sleep Disorders Love Francisco DO [address] [place] [facility] [address] Scheduled Procedures Name Priority Associated Diagnoses Date/Ti [...] of this encounter Implants Implanted Type Area Av Specialist Device Identifier Shelf Expiration Date Model / Serial / Lot Microtech Sure Clip Implanted:Qty: 2 on 06/03/2020 by Janis Hatch DO at OR [facility] Clip N/A: Colon 04/21/2022 [facility]-F-26-2 35-C-R / / [id number] documented as of this encounter Advance Directives Documents on File Type Date Recorded Patient Sales Director 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 WILL AND HEALTH CARE POA Power of Laboratory Coordinator 04/29/2021 12:00 AM TOM R OF PASTE UP ARTIST HEALTH CARE POA Advanced Directive 04/01/2021 1:14 [...] Bustos Spouse Emergency Contact Care Teams Web Pressman Relationship Specialty Start Date End Date Vanita Dunn MD [address] [place] [address] PCP - General Family Medicine 03/16/21 documented as of this encounter
--- OUTSIDE RECORDS SUMMARY | 2023-05-10 19:54 | External Medical Summary | Summary of Care ---
Author Name Unknown Organization [place] [address] Care Team Providers Care Paleologist Name Role Phone Vanita Dunn MD Primary Care Provid er Encounter Details Date Type Department Care Team Description 09/16/2021 Documentation [facility] [place] [address] [place] [address] Marie Johnson, ELECTRICAL LINE WORKER Allergies Active Allergy Reactions Severity Noted Date [...] 120 Vial 11 10/02/2019 Active nystatin (NYSTOP) 125828 UNIT/GM powder Apply topically to affected area [...] 60 Each 3 07/27/2020 Active Dexcom G6 Nurse Private Duty Device Use as directed. To test blood [...] days. 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 APPLY TO SKIN OVER MEDIPORT & COVER 1HR PRIOR TO ACCESSING. 30 g 3 10/09/2020 Active OneTouch Verio In Vitro Strip (Glucose Blood) TESTING once daily 100 Strip 3 10/29/2020 Active OneTouch Delica Plus Knzokr41F TESTING once daily 100 Each 10/29/2020 Active [...] pain 01/24/2012 01/17/2017 Genetic Sleep Disorder Research Other*[id number] 05/13/2011 04/07/2016 Obstructive sleep apnea 01/18/2011 12/27/19 [...] as of this encounter Nursing Notes * Marie Johnson LPN - 09/16/2021 11:34 AM EST Shaina Bustos was referred as a potential candidate for enrollment in the [facility] by: Case Management. A review of this chart was completed and Shaina is a candidate for Home Based Medical Care. documented in this encounter Plan of Treatment Upcoming Encounters Date Type Specialty Care Team Description 09/23/2021 Office Visit Cardiology Quyen Canseco CRNP [address] [place] [address] 10/20/2021 Immunization/Injecti on Hematology Oncology Nurse, Med 4 [address] [facility] [address] 10/22/2021 Office Visit Sleep Disorders Love Francisco DO [address] [place] [address] 11/02/2021 Imaging Radiology 11/10/2021 [address] [address] 12/22/2021 Office Visit Endocrinology Alberta Duque PA-C [address] [place] [address] 12/23/2021 Office Visit Gastroenterology Lyssa Stout CRNP [address] [facility] [address] 01/04/2022 Office Visit Hematology Oncology Tono Sanchez MD [address] [place] [address] 03/24/2022 Office Visit Pulmonary Reynaldo Marquez MD [address] [place] [address] 06/24/2022 Office Visit [facility] Disorders [facility] [address] [facility] [address] Scheduled Procedures Name Priority Associated Diagnoses Date/Ti [...] of this encounter Implants Implanted Type Area Dressage Judge Device Identifier Shelf Expiration Date Model / Serial / Lot Microtech Sure Clip Implanted:Qty: 2 on 06/03/2020 by Janis Hatch DO at OR [facility] Clip N/A: Colon 04/21/2022 [facility]-F-26-2 35-C-R / / [id number] documented as of this encounter Advance Directives Documents on File Type Date Recorded Patient Senior Software Engineering Manager 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 WILL AND HEALTH CARE POA Power of Sleeve Tailor 04/29/2021 12:00 AM TOM R OF DRAW OPERATOR HEALTH CARE POA Advanced Directive 04/01/2021 [...] Syed Bustos Spouse Emergency Contact Care Teams Paleologist Relationship Specialty Start Date End Date Vanita Dunn MD [address] [place] [phone] PCP - General Family Medicine 03/16/21 documented as of this encounter
--- OUTSIDE RECORDS SUMMARY | 2023-05-10 19:54 | External Medical Summary | Summary of Care ---
Author Name Unknown Organization [place] [address] Care Team Providers Care Assembler Radio And Electrical Name Role Phone Vanita Dunn MD Primary Care Provid er Reason for Visit * Reason Onset Date Comments Order Request 07/22/2021 NIV Encounter Details Date Type Department Care Team Description 07/22/2021 Telephone Pulmonary Medicine, [facility] [address] [facility] [place] [address] Reynaldo Marquez MD [address] [facility] [place] [address] Order Request (NIV) Allergies Active Allergy Reactions [...] 120 Vial 11 0 Active nystatin (NYSTOP) 301470 UNIT/GM powder Apply topically to affected area [...] 60 Each 3 0 Active Dexcom G6 Director Cardiac Device Use as directed. To test blood [...] Strip 3 1 Active OneTouch Delica Plus [id number] TESTING once daily 100 Each 3 1 [...] pain 01/24/2012 01/17/2017 Genetic Sleep Disorder Research Other*[id number] 05/13/2011 04/07/2016 Obstructive sleep apnea 01/18/2011 12/27/19 [...] Guzman LPN - 09/16/2021 11:30 AM EST [facility] states that OVN from 07-22-21 doesn't [...] Cardiology Quyen Canseco CRNP [address] [place] [address] 10/20/2021 Immunization/Injecti on Hematology Oncology Nurse, Med 4 [address] [facility] [address] 10/22/2021 Office Visit Sleep Disorders Love Francisco DO [address] [place] [address] 11/02/2021 Imaging Radiology 11/10/2021 Office Visit Pharmacy [facility] [address] [place] [address] 12/22/2021 Office Visit Endocrinology Alberta Duque PA-C [address] [place] [address] 12/23/2021 Office Visit Gastroenterology Lyssa Stout CRNP [address] [facility] [place] [address] 01/04/2022 Office Visit Hematology Oncology Tono Sanchez MD [address] [place] [address] 03/24/2022 Office Visit Pulmonary Reynaldo Marquez MD [address] [place] [address] 06/24/2022 Office Visit Sleep Disorders Love Francisco, [address] [facility] [place] [address] Scheduled Procedures Name Priority Associated Diagnoses Date/Ti [...] of this encounter Implants Implanted Type Area Straw Baler Device Identifier Shelf Expiration Date Model / Serial / Lot Microtech Sure Clip Implanted:Qty: 2 on 06/03/2020 by Janis Hatch DO at OR [facility] Clip N/A: Colon 04/21/2022 [facility]-F-26-2 35-C-R / / [id number] documented as of this encounter Advance Directives Documents on File Type Date Recorded Patient Circular Knitter Helper 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 AND HEALTH CARE POA Power of Tie Fastener 04/29/2021 12:00 AM TOM R OF WIRED MUSIC OPERATOR HEALTH CARE POA Advanced Directive 04/01/2021 [...] Bustos Spouse Emergency Contact Care Teams Assembler Radio And Electrical Relationship Specialty Start Date End Date Vanita Dunn MD [address] [place] [phone] PCP - General Family Medicine 03/16/21 documented as of this encounter
--- OUTSIDE RECORDS SUMMARY | 2023-05-10 19:54 | External Medical Summary | Summary of Care ---
Author Name Unknown Organization [place] [address] Care Team Providers Care Costume Designer Name Role Phone Vainta Dunn MD Primary Care Provid er Reason for Visit * Reason Comments Follow Up * Evaluate & Treat - Unlimited Visits (Within 10 days (routine)) - Closed Specialty Diagnoses / Procedures Referred By Contac t Referred To Contact Pulmonary Diseases / Pulmonary Diagnoses Orthopnea Gregor Cerna MD [address] [place] [address] Referral ID Status Reason Start Date Expiration Date V isits Requested Visits Authorized [id number] Closed Specialty Services Required 04/08/2021 1 1 Encounter Details Date Type Department Care Team Description 07/22/2021 Office Visit Pulmonary Medicine, [facility] [address] [place] [address] Reynaldo Marquez MD [address] [facility] [address] SOB (shortness of breath)*; Restrictive lung disease; Obesity, morbid (more than 100 lbs over ideal weight or BMI > 40) (HCC); Gastroesophageal reflux disease with esophagitis without hemorrhage; Chronic rhinitis; Secondary esophageal varices without bleeding (HCC); Other cerebral palsy (HCC); Moderate persistent asthma without complication; Chronic diastolic heart failure (HCC) Allergies Active Allergy Reactions Severity Noted [...] 120 Vial 11 0 Active nystatin (NYSTOP) 737322 UNIT/GM powder Apply topically to affected area [...] 60 Each 3 0 Active Dexcom G6 Senior Director Insight Device Use as directed. To test blood [...] Strip 3 1 Active OneTouch Delica Plus [id number] TESTING once daily 100 Each 3 1 [...] less than 7.0% ([facility]) Inject one pen (4.5 mg) under [...] once per day. 1 Kit 0 0 Discontinued(Di scharged) silver sulfadiazine (SILVADENE) 1 % [...] Take 500 mg by mouth daily. 0 Discontinued(Di scharged) Cyclobenzaprine HCl 10 MG Oral Tablet (Flexeril) TAKE 1 TABLET ONCE DAILY AT BEDTIME 30 Tab 0 1 022 Discontinued(Di scharged) Atorvastatin Calcium 80 MG Oral Tablet (Lipitor) Take 1 Tab by mouth at bedtime. 30 Tab 5 1 Discontinued Aspirin 81 MG Oral Tablet Chewable [...] daily. 30 Cap 0 1 022 Discontinued(Di scharmiracle) documented as of this encounter (statuses as [...] pain 01/24/2012 01/17/2017 Genetic Sleep Disorder Research Other*[id number] 05/13/2011 04/07/2016 Obstructive sleep apnea 01/18/2011 12/27/19 [...] Sign Reading Time Taken Comments Blood Pressure 132/80 07/22/2021 2:23 PM EST Pulse 74 07/22/2021 2:23 PM EST Temperature 36.1 C (96.9 F) 07/22/2021 2:23 PM ES T Respiratory Rate 16 07/22/2021 2:23 PM EST Oxygen Saturation 96% 07/22/2021 2:23 PM EST Inhaled Oxygen Concentration - - Weight 115.2 kg (254 lb) 07/22/2021 2:23 PM EST Height - - Body Mass Index 51.3 07/10/2021 10:48 AM EDT documented in this encounter Functional [...] Progress Notes * Reynaldo Marquez MD - 07/22/2021 2:12 PM EST PULMONARY PROGRESS NOTE REFERRING PHYSICIAN: Vanita Dunn MD HPI: 66-year-old female history of morbid obesity with BMI 56.55, asthma, cerebral palsy, restrictive lung disease, esophageal varices, chronic heart failure preserved EF, portal hypertensive gastropathy here for routine follow-up. Patient is wanting she can qualify to be placed on 2 noninvasive ventilator instead of the BiPAP aseven though she is adherent she is still having ongoing symptoms of fatigue and shortness of breath. Worsening weakness She has chronic persistent wet coughs She has thick chronic clear-white difficult to raise sputum She denies wheezes She has nightly night time cough She denies hemoptysis She becomes short of breath after laying flat, any activity. Wheel chair bound. Unable to do her ADLs She has had 0 ER visits/hospitalization and 0 courses of prednisone related to their breathing in the past year She is A never smokes She has hx of pneumonia She current inhalers are advair 250, prn albuterol She denies history of hay fever/seasonal allergies Past Medical History: Diagnosis Date Cerebral palsy (HCC) 01/24/2012 Chronic constipation Chronic hypoxemic respiratory failure ([facility]) 04/08/2019 Chronic pain 03/27/2012 Cirrhosis of liver ([facility]) 11/20/2017 DDD (degenerative disc disease), lumbar DM type 2, goal A1c below 7 Dyslipidemia, goal LDL below 70 Hypothyroidism Intermittent asthma with reliever use up to twice per week 01/09/2013 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 12/27/2010 Lymphedema 03/11/2013 MEDICATION USE AGREEMENT 03/27/2012 03/27/12 Myalgia and myositis 03/27/2012 NG (nonalcoholic steatohepatitis) 05/02/2012 Other specified infantile cerebral palsy Oxygen dependent 04/08/2019 Restrictive lung disease 12/2014 Sleep apnea CPAP Sleep disturbance 01/24/2012 Type 2 diabetes mellitus with hemoglobin A1c goal of less than 7.0% ([facility]) 09/26/2013 ICD-10 update of inactive term Past Surgical History: Procedure Laterality Date BONE DEBRIDEMENT, FIRST 20 CM2 Right 04/16/2020 DEBRIDEMENT SKIN SUBCUTANEOUS TISSUE MUSCLE AND BONE performed [place] Vaz[place] [facility] [place] 04/20/1982 COLONOSCOPY 04/21/2009 repeat in 10 years COLONOSCOPY, DIAGNOSTIC (RECTUM) 10/04/2016 normal bx, repeat 10 yrs/[facility] COLONOSCOPY, DIAGNOSTIC (RECTUM) N/A 06/03/2020 internal hemorrhoids/biopsies show adenomatous polyps/recall 5 years/COLONOSCOPY FLEXIBLE PROXIMAL DIAGNOSTIC performed by Janis Hatch DO at OR [facility] COLONOSCOPY, DIAGNOSTIC (RECTUM) 03/17/2020 poor prep / [facility] DENTAL SURGERY PROCEDURE NEC wisdom teeth x 4 DILATION AND CURETTAGE (D&C) EGD, FLEXIBLE, DIAGNOSTIC 10/04/2016 gastritis/[facility] EGD, FLEXIBLE, DIAGNOSTIC 01/11/2018 eso varices, retained food, repeat 1 yr/[facility] EGD, FLEXIBLE, DIAGNOSTIC N/A 06/03/2020 severe erosive esophagitis/non-bleeding grade II esophageal varices/gastritis/biopsies show inflammatory changes/repeat 3-4 months/ESOPHAGOGASTRODUODENOSCOPY (EGD), FLEXIBLE, TRANSORAL, DIAGNOSTIC per formed by Janis Hatch DO at OR [facility] EGD, FLEXIBLE, DIAGNOSTIC 11/27/2019 eso varices, portal hypertensive gastropathy, gastritis / [facility] EGD, FLEXIBLE, DIAGNOSTIC N/A 08/05/2020 large amount of food in stomach/repeat 1.5 years/ESOPHAGOGASTRODUODENOSCOPY (EGD), FLEXIBLE, TRANSORAL, DIAGNOSTIC performed by Janis Hatch DO at OR [facility] EGD, FLEXIBLE, DIAGNOSTIC N/A 03/10/2021 ESOPHAGOGASTRODUODENOSCOPY (EGD), FLEXIBLE, TRANSORAL, DIAGNOSTIC performed by Kris Blankenship MD at [place] [facility] [place] VENOUS ACCESS MEDIPORT 10/05/2020 PELVIS/HIP JOINT SURGERY NEC teenager aid in walking REPAIR/GRAFT ACHILLES TENDON age 40 aid in walking Allergies: Adhesive tape, Pcn [penicillins], and Perflutren protein a microsph Current Outpatient Medications Medication Sig Dispense Refill CENTRUM SILVER PO TABS Take 1 Tab by mouth daily. 1 Tab 0 vitamin c (ASCORBIC ACID) 500 MG Tablet Take 500 mg by mouth daily. albuterol sulfate (PROVENTIL) (2.5 MG/3ML) 0.083% nebulizer solution Inhale 1 Vial via nebulizer every 6 hours as needed for Wheezing. 120 Vial 11 nystatin (NYSTOP) 652526 UNIT/GM powder Apply topically to affected area 3 times a day. 60 g 1 Albuterol Sulfate (ALBUTEROL HFA) 108 (90 BASE) MCG/ACT inhaler Inhale 2 Puffs by mouth every 4hours as needed for Cough or Wheezing. With spacer 16 g 1 Blood Glucose Monitoring Suppl (BLOOD GLUCOSE MONITOR SYSTEM) w/Device KIT Use to test once perday. 1 Kit 0 silver sulfadiazine (SILVADENE) 1 % cream Apply topically to affected area daily. Apply to right great toe 50 g 0 Ipratropium-Albuterol 0.5-2.5 (3) MG/3ML Inhalation Solution (DUONEB) Inhale 3 mL via nebulizer4 times a day. (Patient taking differently: Inhale 3 mL via nebulizer 4 times a day as needed for Shortness of Breath.) 3 mL 10 Fluticasone-Salmeterol 250-50 MCG/DOSE Inhalation Aerosol Powder Breath Activated (Advair Diskus) Inhale 1 Puff by mouth 2 times a day. 60 Each 3 Dexcom G6 Senior Director Insight Device Use as directed. To test blood [...] daily 100 Strip 3 OneTouch Delica Plus [id number] TESTING once daily 100 Each 3 BD Pen Needle Mini U/F 31G X 5 MM (Insulin Pen Needle) Use to inject insulin four times daily; E11.42 400 Each 3 Escitalopram Oxalate 20 MG Oral Tablet (Lexapro) TAKE 1 TABLET BY MOUTH ONCE DAILY 90 Tab 3 Cinnamon 500 MG Oral Capsule Take 500 mg by mouth daily. Nitroglycerin 0.4 MG Sublingual Tablet Sublingual (Nitrostat) Place 1 Tab under the tongue every 5 minutes as needed for Pain, Chest. up to 3 doses in 15 minutes 25 Tab 11 BiPAP every night at bedtime. MEDICAL INSTRUCTIONS Please de-access patient's port. Please flush with 10 mL of NS, followed by 500 units (5 mL) of heparin. 1 Each N/A Cyclobenzaprine HCl 10 MG Oral Tablet (Flexeril) TAKE 1 TABLET ONCE DAILY AT BEDTIME 30 Tab 0 Atorvastatin Calcium 80 MG Oral Tablet (Lipitor) Take 1 Tab by mouth at bedtime. 30 Tab 5 Aspirin 81 MG Oral Tablet Chewable Take 1 Tab by mouth daily. 30 Tab 5 Isosorbide Mononitrate ER 30 MG Oral Tablet Extended Release 24 Hour (Imdur) Take 1 Tab by mouth daily. 30 Tab 5 Potassium Chloride Selena ER 10 MEQ Oral Tablet Extended Release Take 10 mEq by mouth daily at noon. Furosemide 20 MG Oral Tablet (Lasix) Take 1 Tab by mouth daily as needed. EDEMA NovoLOG FlexPen 100 UNIT/ML Subcutaneous Solution Pen-injector Inject under the skin three times a day before meals. Sliding scale Trulicity 4.5 MG/0.5ML Subcutaneous Solution Pen-injector (Dulaglutide) Inject one pen (4.5 mg)under the skin once weekly 6 mL 3 Senna-Docusate Sodium 8.6-50 MG Oral Tablet Take 1 Tab by mouth daily. 90 Tab 0 Nadolol 40 MG Oral Tablet (Corgard) Take [...] breakfast or other meds) 35 Tab 11 Tamsulosin HCl 0.4 MG Oral Capsule (Flomax) Take 1 Cap by mouth daily. 30 Cap 0 Linzess 290 MCG Oral Capsule (linaCLOtide) TAKE 1 CAPSULE BY MOUTH ONCE DAILY BEFORE BREAKFAST 90 Capsule 1 No current facility-administered medications for this visit. Social/occupational/living/family history reviewed unchanged SYSTEMS REVIEW: REVIEW OF SYSTEMS CONSTITUTIONAL ROS: + change in weight, +weakness, +fatigue and No fevers, sweats, or chills EYE [...] see HPI CARDIOVASCULAR ROS: No chest pain, +orthopnea, No paroxysmal nocturnal dyspnea, +edema, No palpitations and No syncope GASTROINTESTINAL ROS: [...] and No Food Allergies PHYSICAL EXAM: BP 132/80 | Pulse 74 | Temp 36.1 C (96.9 F) (Tympanic) | Resp 16 | Wt 115.2 kg (254 lb) | SpO2 96% | BMI 51.30 kg/m | BSA 2.19 m GEN: Morbidly obese middle-aged female, sitting in powered wheelchair, unable to lift arms, no acute distress, speaking in complete sentences HEENT: eyes perrla, trachea midline, thick squat non-boggy nasal turbinates and no nasal drainage. CHEST: no respiratory distress, no retractions, or abdominal breathing. Lungs with severely decreased breath sounds bilateral No egophony, ribs nontender to palpation. CVS: S1,S2 normal, regular rate and rhythm, no murmurs, rubs or gallops ABD: soft, nontender, protuberant with large pannus, +BS, no organomegaly EXT: 1+ pitting edema in lower extremities bilaterally, posterior tibial and radial pulses 2+ bilaterally, no clubbing in fingers or toes. SKIN: no lesions or rashes, pale, dry Neuro: alert, oriented to person, place and time. Rest of exam nonfocal, GCS 15. ADENOPATHY: no cervical or axillary adenopathy OTHER: rest of exam unremarkable DATA PFT from 11/2014 interpretation spirometry is restrictive. There is no significant bronchodilator response. Echocardiogram: 06/2021: Study was performed with patient seated in motorized wheelchair. Patient has documented allergy to Definity ultrasound contrast. Mild aortic valve stenosis is suggested by technically limited Doppler evaluation. The left ventricular ejection fraction is grossly normal. Grade I diastolic dysfunction Other: Interm History/Respiratory Symptoms Cough: all the time can't clear Hemoptysis: no Sinus Symptoms: runny Hospitalizations: no ED Trips: no Triggers: movement Nocturnal: sleeps with head up CPAP/BiPAP/O2: cpap Flu Vaccine: 2020 Pneumovax: 2009 Prevnar: 2019 COVID 19: 11/23/2020 02/20/2021 Asthma Control Test Question 07/22/2021 2:22 PM EST - Filed by Emmy Guzman LPN Please select the best response to the five questions below, by clicking the appropriate option button. In the past 4 weeks, how much of the time did your asthma keep you from getting as much done at work, school or at home? (4) A little of the time During the past 4 weeks, how often have you had shortness of breath? (2) Once a day During the past 4 weeks, how often did your asthma symptoms (wheezing, coughing, shortness of breath, chest tightness or pain) wake you up at night or earlier than usual in the morning? (5) Not atall During the past 4 weeks, how often have you used your rescue inhaler or nebulizer medication (such as albuterol)? (2) 1 or 2 times per day How would you rate your asthma control during the past 4 weeks? (2) Poorly controlled Total ACT Adult Score (range: 5 - 25) 15 (Moderately Controlled) Total ACT Child Score (range: 0 - 27) Incomplete Assessment: 1. Shortness of breath multifactorial secondary to restrictive lung disease morbid obesity asthma deconditioning 2. Restrictive lung disease most likely a combination of restrictive lung disease secondary to see recall the and secondary to her morbid obesity. 3. Moderate persistent asthma, partially controlled though symptoms are in controlled her her shortness of breath which are due to other factors. Likely TH 1 phenotype. No recent exacerbations asthmacontrol test score is 15 4. Morbid obesity Body mass index is 51.3 kg/m. 5. Cerebral palsy, dependent on motorized wheelchair unable to stand or walk. Dependent on others for all ADLs. 6. Chronic heart failure preserved EF 7. NG with portal hypertensive gastropathy and esophageal varices 8. Chronic respiratory failure requiring NIV with all sleep 9. THAD Recommendations and Plans: -get PFTs -get ABG -get ige, NE rast -continue Advair and p.r.n. albuterol -weight management counseling done today. -script written for cough assist device- needs due to significant weakness from CP and inability toclear sputum. -Start NIV. Due to chronic respiratory failure consequent to progressive neuromuscular disease, patient now requires a non-invasive home ventilator. BI-level therapy with and without a rate would be ineffective as patient requires a volume targeted mode. Ventilation is required to decrease the work of breathing and improve pulmonary status. Interruption of ventilator support would lead to decline of health status. Follow up in 6 months, sooner if needed All the patient;s and her 's questions and concerns were addressed to their apparent satisfaction. I spent more than 50% of the 25 minute visit counseling and coordinating care. Reynaldo Marquez MD Pulmonary Medicine, [address] [address] documented in this encounter Nursing Notes * Emmy Guzman LPN - 07/22/2021 2:16 PM EST Pt here for f/u RLD, SOB Pt would like to discuss cough assit Interm History/Respiratory Symptoms Cough: all the time can't clear Hemoptysis: no Sinus Symptoms: runny Hospitalizations: no ED Trips: no Triggers: movement Nocturnal: sleeps with head up CPAP/BiPAP/O2: cpap Flu Vaccine: 2020 Pneumovax: 2010 Prevnar: 2019 COVID 19: 11/23/2020 02/20/2021 Asthma Control Test Question 07/22/2021 2:22 PM EST - Filed by Emmy Guzman LPN Please select the best response to the five questions below, by clicking the appropriate option button. In the past 4 weeks, how much of the time did your asthma keep you from getting as much done at work, school or at home? (4) A little of the time During the past 4 weeks, how often have you had shortness of breath? (2) Once a day During the past 4 weeks, how often did your asthma symptoms (wheezing, coughing, shortness of breath, chest tightness or pain) wake you up at night or earlier than usual in the morning? (5) Not at all During the past 4 weeks, how often have you used your rescue inhaler or nebulizer medication (such as albuterol)? (2) 1 or 2 times per day How would you rate your asthma control during the past 4 weeks? (2) Poorly controlled Total ACT Adult Score (range: 5 - 25) 15 (Moderately Controlled) Total ACT Child Score (range: 0 - 27) Incomplete MMRC Dyspnea Scale = 4 (I am too breathless to leave the house or I am breathless when dressing) . documented in this encounter Plan of Treatment Upcoming Encounters Date Type Specialty Care Team Description 09/20/2021 Home Visit [facility] July Poe RN [address] [place] [address] 09/23/2021 Office Visit Cardiology Quyen Canseco CRNP [address] [place] [address] 09/27/2021 Home Visit [facility] Joselin Dawson CRNP [address] [place] [address] 10/20/2021 Immunization/Injecti on Hematology Oncology Nurse, Med 4 [address] [facility] [address] 10/22/2021 Office Visit Sleep Disorders Love Francisco DO [address] [place] [address] 11/02/2021 Imaging Radiology 11/10/2021 Office Visit Pharmacy [facility] [address] [place] [address] 12/22/2021 [facility] [address] [facility] [address] 12/23/2021 Office Visit Gastroenterology Lyssa Stout CRNP [address] [place] [address] 01/04/2022 Office Visit Hematology Oncology Tono Sanchez MD [address] [place] [address] 03/24/2022 Office Visit Pulmonary Reynaldo Marquez MD [address] [place] [address] 06/24/2022 Office Visit Sleep Disorders Love Francisco, DO [address] [place] [address] Scheduled Orders Name Type Priority Associated Diagnoses Orde r Schedule BLOOD GAS, ARTERIAL Lab Routine Restrictive lung disease Expected: 08/21/2021, Expires: 08/21/2022 SPIROMETRY B/A BRONCHODILATOR Procedures Routine Restrictive lung disease Expected: 07/23/2021, Expires: 08/21/2022 LUNG VOLUMES (PLETHYSMOGRAPHY) Procedures Routine Restrictive lung disease Expected: 07/23/2021, Expires: 08/21/2022 DIFFUSION CAPACITY (DLCO) Procedures Routine Restrictive lung disease Expected: 07/23/2021, Expires: 08/21/2022 RESPIRATORY MUSCLE PRESSURES (BUGLE PRESSURES) Procedures Routine Restrictive lung disease Other cerebral palsy (HCC) Expected: 07/22/2021, Expires: 08/21/2022 Scheduled Procedures Name Priority Associated Diagnoses Date/Ti [...] of this encounter Implants Implanted Type Area Door To Door Fundraising Collector Device Identifier Shelf Expiration Date Model / Serial / Lot [employer] Sure Clip Implanted:Qty: 2 on 06/03/2020 by Janis Hatch DO at OR [facility] Clip N/A: Colon 04/21/2022 [facility]-F-26-2 35-C-R / / [id number] documented as of this encounter Results * [facility] IGE PROFILE (08/19/2021 4:18 PM EST) Dianna Grass IgE 1.22(Class 2) <0.35 kU/L [facility] [place] Dustin Grass IgE 0.36(Class 1) <0.35 kU/L [facility] [place] Common Ragweed IgE <0.20 <0.35 kU/L [facility] [place] Pigweed IgE <0.20 <0.35 kU/L [facility] [place] Falkner IgE <0.20 <0.35 kU/L [facility] [place] Elm IgE <0.20 <0.35 kU/L [facility] [place] Mite-Farinae IgE 0.44(Class 1) <0.35 kU/L [facility] [place] Mite-Pteronyssinus IgE 0.64(Class 1) <0.35 kU/L [facility] [place] Alternaria IgE <0.20 <0.35 kU/L [facility] [place] Cat Dander IgE <0.20 <0.35 kU/L [facility] [place] Dog Epithelium IgE <0.20 <0.35 kU/L [facility] [place] Dog Dander IgE <0.20 <0.35 kU/L [facility] [place] Cladosporium IgE <0.20 <0.35 kU/L [facility] [place] Zuniga's Quarters IgE <0.20 <0.35 kU/L [facility] [place] Specimen Blood - Venous blood specime n (specimen) Narrative [facility] [place] - 08/22/2021 2:10 PM EST <0.35 kU/L - Class 0 Allergen: Absent or Very Low Level of Allergen Specific IgE 0.35-0.69 kU/L - Class 1 Allergen: Low Level of Allergen Specific IgE 0.70-3.49 kU/L - Class 2 Allergen: Moderate Level of Allergen Specific IgE 3.50-17.49 kU/L - Class 3 Allergen: High Level of Allergen Specific IgE 17.5-52.49 kU/L - Class 4 Allergen: Very High Level of Allergen Specific IgE 52.5-99.99 kU/L - Class 5 Allergen: Very High Level of Allergen Specific IgE >99.99 kU/L - Class 6 Allergen: Very High Level of Allergen Specific IgE Performing Organization Address City/[facility]/ZIP Co de Phone Number LABORATORY [place] [address] [place] [address] * IGE (08/19/2021 4:18 PM EST) IgE 75.4 0.0 - 87.0 kU/L [facility] [place] Specimen Blood - Venous blood specime n (specimen) Performing Organization Address City/[facility]/ZIP Co de Phone Number LABORATORY [facility] [address] [place] [address] documented in this encounter Visit Diagnoses Diagnosis SOB (shortness of breath)- Primary Shortness of breath Restrictive lung disease Other diseases of lung, not elsewhere classified Obesity, morbid (more than 100 lbs over ideal weight or BMI > 40) (HCC) Morbid obesity Gastroesophageal reflux disease with esophagitis without hemorrhage Chronic rhinitis Secondary esophageal varices without bleeding (HCC) Esophageal varices without mention of bleeding in diseases classified elsewhere Other cerebral palsy (HCC) Moderate persistent asthma without complication Unspecified asthma Chronic diastolic heart failure (HCC) Chronic diastolic heart failure documented in this encounter Advance Directives Documents on File Type Date Recorded Patient Senior Staff Psychologist 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 WILL AND HEALTH CARE POA Power of Horse Rider 04/29/2021 12:00 AM TOM R OF NEGATIVE CHECKER HEALTH CARE POA Advanced Directive 04/01/2021 1:14 [...] Syed Bustos Spouse Emergency Contact Care Teams Costume Designer Relationship Specialty Start Date End Date Vanita Dunn MD [address] [place] [address] PCP - General Family Medicine 03/16/21 documented as of this encounter"
--- OUTSIDE RECORDS SUMMARY | 2023-05-10 19:55 | External Medical Summary | Summary of Care ---
Author Name Unknown Organization [place] [address] Care Team Providers Care Boiling House Oiler Name Role Phone Vanita Dunn MD Primary Care Provid er Reason for Visit * Reason Onset Date Comments Order Request 07/22/2021 NIV Encounter Details Date Type Department Care Team Description 07/22/2021 Telephone Pulmonary Medicine, [facility] [address] [facility] [place] [address] Reynaldo Marquez MD [address] [facility] [place] [address] Order Request (NIV) Allergies Active Allergy Reactions [...] 120 Vial 11 0 Active nystatin (NYSTOP) 076626 UNIT/GM powder Apply topically to affected area [...] 60 Each 3 0 Active Dexcom G6 Traveling Passenger Agent Device Use as directed. To test [...] Strip 3 1 Active OneTouch Delica Plus [id number] TESTING once daily 100 Each 3 1 [...] pain 01/24/2012 01/17/2017 Genetic Sleep Disorder Research Other*[id number] 05/13/2011 04/07/2016 Obstructive sleep apnea 01/18/2011 12/27/19 [...] Guzman LPN - 09/16/2021 11:30 AM EST [facility] states that OVN from 07-22-21 doesn't [...] Cardiology Quyen Canseco CRNP [address] [place] [address] 10/20/2021 Immunization/Injecti on Hematology Oncology Nurse, Med [address] [facility] [address] 10/22/2021 Office Visit Sleep Disorders Love Francisco DO [address] [place] [address] 11/02/2021 Imaging Radiology 11/10/2021 Office Visit Pharmacy [place], [facility] [address] [facility] [address] 12/22/2021 Office Visit Endocrinology Alberta Duque PA-C [address] [place] [address] 12/23/2021 Office Visit Gastroenterology Lyssa Stout CRNP [address] [place] [address] 01/04/2022 Office Visit Hematology Oncology Tono Sanchez MD [address] [place] [address] 03/24/2022 Office Visit Pulmonary Reynaldo Marquez MD [address] [facility] [place] [address] 06/24/2022 Office Visit Sleep Disorders Love Francisco DO [address] [place] [address] Scheduled Procedures Name Priority Associated Diagnoses Date/Ti [...] of this encounter Implants Implanted Type Area Coat Operator Device Identifier Shelf Expiration Date Model / Serial / Lot Microtech Sure Clip Implanted:Qty: 2 on 06/03/2020 by Janis Hatch DO at OR [facility] Clip N/A: Colon 04/21/2022 [facility]-F-26-2 35-C-R / / [id number] documented as of this encounter Advance Directives Documents on File Type Date Recorded 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
--- OUTSIDE RECORDS SUMMARY | 2023-05-10 19:55 | External Medical Summary | Summary of Care ---
Author Name Unknown Organization [place] [address] Care Team Providers Care Certified Physician Assistant Name Role Phone Vanita Dunn MD Primary Care Provid er Reason for Visit * Reason Onset Date Comments Medication Update 09/14/2021 Encounter Details Date Type Department Care Team Description 09/14/2021 Telephone Gastroenterology, [facility] 132 [facility] [place] [address] Lyssa Stout CRNP [address] [place] [address] Medication Update Allergies Active Allergy Reactions Severity Noted Date Comments Adhesive Tape Itching 04/29/2020 Penicillins Rash 02/12/2008 Perflutren Protein A Microsph 2019 Definity-lower back pain documented as of this encounter (statuses as of 09/14/2021) Medications Medication Sig Dispensed Refills Start Date End Date Status albuterol sulfate (PROVENTIL) (2.5 MG/3ML) 0.083% nebulizer solutionIndications: Pulmonary vascular congestion Inhale 1 Vial via nebulizer every 6 hours as needed for Wheezing. 120 Vial 11 10/02/2019 Active nystatin (NYSTOP) 912687 UNIT/GM powder Apply topically to affected area [...] 60 Each 3 07/27/2020 Active Dexcom G6 Blasting Worker Device Use as directed. To test [...] Strip 3 10/29/2020 Active OneTouch Delica Plus [id number] TESTING once daily 100 Each 10/29/2020 Active [...] as of this encounter (statuses as of 09/14/2021) Active Problems Problem Noted Date Chronic diastolic [...] as of this encounter (statuses as of 09/14/2021) Resolved Problems Problem Noted Date Resolved Date [...] pain 01/24/2012 01/17/2017 Genetic Sleep Disorder Research Other*[id number] 05/13/2011 04/07/2016 Obstructive sleep apnea 01/18/2011 12/27/19 [...] as of this encounter (statuses as of 09/14/2021) Immunizations Name Administration Dates Next Due COVID-19 [...] medication. [facility]. I tried calling today however kept on getting busy dial tones. Please scanthe list of medications after this is obtain so we can update her medication list. ZAK Schreiber documented in this encounter Plan of Treatment Upcoming Encounters Date Type Specialty Care Team Description 09/14/2021 Laboratory Laboratory FernandesJohanna martin 132 [facility] [place] [address] Hyperammonemia (HCC); Type 2 diabetes mellitus with hemoglobin A1c goal of less than 7.0% (HCC) 09/15/2021 Office Visit Pharmacy [facility] [address] [place] [address] 09/16/2021 Telemedicine Gastroenterology Katherine Moore RDN [address] [place] [address] 09/23/2021 Office Visit Cardiology Quyen Canseco CRNP [address] [place] [address] 10/20/2021 Immunization/Inject ion Hematology Oncology Nurse, Med [address] [place] [address] 10/22/2021 Office Visit Sleep Disorders Love Francisco DO 132 [place] [address] 11/02/2021 Imaging Radiology 12/22/2021 Office Visit Endocrinology Alberta Duque PA-C [address] [place], [place] [id number] 12/23/2021 Office Visit Gastroenterology Lyssa Stout CRNP [address] [place] [address] 01/04/2022 Office Visit Hematology Oncology Tono Sanchez MD 200 [place] [address] 03/24/2022 Office Visit Pulmonary Reynaldo Marquez MD [address] [place] [address] 06/24/2022 Office Visit Sleep Disorders FranciscoLovearet, DO [address] [facility] [place] [address] Scheduled Procedures Name Priority Associated Diagnoses Date/Ti [...] of this encounter Implants Implanted Type [facility] Personnel Director Device Identifier Shelf Expiration Date Model / Serial / Lot Microtech Sure Clip Implanted:Qty: 2 on 06/03/2020 by Janis Hatch DO at OR [facility] Clip N/A: Colon 04/21/2022 [facility]-F-26-2 35-C-R / / [id number] documented as of this encounter Advance Directives Documents on File Type Date Recorded Patient Conference Center Manager 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 WILL AND HEALTH CARE POA Power of Entertainment Usher 04/29/2021 12:00 AM [facility] POA Advanced Directive 04/01/2021 1:14 PM [...] Bustos Spouse Emergency Contact Care Teams Certified Physician Assistant Relationship Specialty Start Date End Date Vanita Dunn MD [address] [place] [address] PCP - General Family Medicine 03/16/21 documented as of this encounter
--- OUTSIDE RECORDS SUMMARY | 2023-05-10 19:55 | External Medical Summary | Summary of Care ---
Author Name Unknown Organization [place] [address] Care Team Providers Care Gas Pumper Name Role Phone Vanita Dunn MD Primary Care Provid er Encounter Details Date Type Department Care Team Description 09/16/2021 Telemedicine Nutrition & Weight Management, [facility] [address] [place], [place] [id number] Katherine Moore RDN [address] [place], [place] [id number] Cirrhosis of liver without ascites, unspecified hepatic cirrhosis type (HCC)*; Type 2 diabetes mellitus with hemoglobin A1c goal of less than 7.0% (HCC); BMI 50.0-59.9, adult ([facility]) Allergies Active Allergy Reactions Severity Noted Date [...] 120 Vial 11 10/02/2019 Active nystatin (NYSTOP) 582298 UNIT/GM powder Apply topically to affected area [...] 60 Each 3 07/27/2020 Active Dexcom G6 Protection Analyst Device Use as directed. To test [...] Strip 3 10/29/2020 Active OneTouch Delica Plus [id number] TESTING once daily 100 Each 10/29/2020 Active [...] pain 01/24/2012 01/17/2017 Genetic Sleep Disorder Research Other*[id number] 05/13/2011 04/07/2016 Obstructive sleep apnea 01/18/2011 12/27/19 [...] as of this encounter Progress Notes * Katherine Moore, RDN - 09/16/2021 10:26 AM EST GI/NUTRITION FOLLOW UP [facility] After connecting to the patient via telephone, the patient was identified by name and date of . Patient was then informed that this was a telephone call only visit. The patient agreed to participate. Visit Disposition: Routine follow-up Total call duration was 15 minutes. Patient was identified at visit by name and date. PATIENT: Shaina Bustos DATE: 09/16/2021 NUTRITION ASSESSMENT SUBJECTIVE: Patient answers phone-he wakes her up for visit- Was difficult to hear well thru speaker phone- does most of pt care They feel that they are doing well w/diet- Noted PMHx DM Cirrhosis-recent ED visit for increased ammonia/chronic anemia-hematuria and vaginal bleeding--- Seeing [facility] for BS med management Describes typical diet history/24 hr recall Breakfast: Skips--gets up late Snacks: Lunch: skipped due to doctor's ---leftovers Snacks: Dinner: pork sauerkraut, mashed potatoes Snacks: chips/popcorn Drinks: water/2-3 c 2% milk Alcohol: None Restaurant meals: 2-3 times/wk Progress on goals from the previous month: More f/veggies vs processed snacks CURRENT WT: ?no recent wt WEIGHT CHANGES: unable to assess Wt Readings from Last 7 Encounters: 08/03/21 115.2 kg (254 lb) 07/22/21 115.2 kg (254 lb) 07/10/21 127 kg (280 lb) 06/16/21 117.9 kg (260 lb) 06/10/21 117.9 kg (260 lb) 04/08/21 117.9 kg (260 lb) 04/03/21 126.1 kg (278 lb) MNT: Calorie Controlled Diet, Consistent Carbohydrate , Heart Healthy Diet, 2 Gram Sodium Diet Patient is interested in the following treatment options for obesity: medical management. LABS: Pertinent lab studies have been reviewed. Of note- BUN/Crea- 18/.77 Alb 3.0 Folate/B12 - ok in June PHYSICAL ACTIVITY: Light DIET RECALL/FOOD LOGS INDICATE: Poor meal distribution Inadequate fiber intake Inadequate fruit and vegetable intake Uses calorie free beverages NUTRITION DIAGNOSIS Food and nutrition-related knowledge deficit related to Lack of exposure to nutritional management of liver dz/DM as evidenced by Reported diet and/or activity recall -->ongoing education for DM/2gm Na+ diet- NUTRITION INTERVENTION INSTRUCTED PT ON THESE NUTRITION HANDOUTS: None given PATIENT GOALS: Eat 3 meals a day; No skipping meals -->ongoing education re: DM/2gm Na+ diet -->instead of chips/popcorn- fruit-rev'd reasonable portion for DM diet - Requires simple education- EXPECTED OUTCOMES: Demonstrated interest in learning. Expect compliance with diet recommendations. NUTRITION MONITORING PLAN: Patient scheduled to return in December - to match GI eldon; dietitian phone # given for future reference. 15min visit Katherine Moore RDN documented in this encounter Plan of Treatment Upcoming Encounters Date Type Specialty Care Team Description 09/23/2021 Office Visit Cardiology Quyen Canseco CRNP [address] [facility] [place] [address] 10/20/2021 Immunization/Injecti on Hematology Oncology Nurse, Med [address] [place] [address] 10/22/2021 Office Visit Sleep Disorders Love Francisco, DO [address] [facility] [address] 11/02/2021 Imaging Radiology 11/10/2021 Office Visit Pharmacy [facility] [address] [place] [address] 12/22/2021 Office Visit Endocrinology Alberta Duque PA-C [address] [place] [address] 12/23/2021 Office Visit Gastroenterology [facility] [address] [facility] [address] 01/04/2022 Office Visit Hematology Oncology Tono Sanchez MD 200 [place] [address] 03/24/2022 Office Visit Pulmonary Reynaldo Marquez MD [address] [facility] [id number] 06/24/2022 Office Visit Sleep Disorders Love Francisco, DO 132 [facility] [place] [address] Scheduled Procedures Name Priority Associated Diagnoses Date/Ti [...] this encounter Implants Implanted Type Area Sales Promotion Manager Device Identifier Shelf Expiration Date Model / Serial / Lot Microtech Sure Clip Implanted:Qty: 2 on 06/03/2020 by Janis Hatch DO at OR [facility] Clip N/A: Colon 04/21/2022 [facility]-F-26-2 35-C-R / / [id number] documented as of this encounter Visit Diagnoses Diagnosis Cirrhosis of liver without ascites, unspecified hepatic cirrhosis type (HCC)- Primary Type 2 diabetes mellitus with hemoglobin A1c goal of less than 7.0% (HCC) BMI 50.0-59.9, adult (HCC) Body Mass Index 50.0-59.9, adult documented in this encounter Advance Directives Documents on File Type Date Recorded Patient Medicare Contact Specialist 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 WILL AND HEALTH CARE POA Power of Teaching Specialists 04/29/2021 12:00 AM TOM R OF PILOT TEACHER HEALTH CARE POA Advanced Directive 04/01/2021 [...] Bustos Spouse Emergency Contact Care Teams Gas Pumper Relationship Specialty Start Date End Date Vanita Dunn MD [address] [place] [address] PCP - General Family Medicine 03/16/21 documented as of this encounter
--- OUTSIDE RECORDS SUMMARY | 2023-05-10 19:55 | External Medical Summary | Summary of Care ---
Author Name Unknown Organization [place] [address] Care Team Providers Care Immersion Metalcleaner Name Role Phone Vanita Dunn MD Primary Care Provid er Reason for Visit * Reason Comments Dosage Adjustment In Person (Anticoag Cl inic) Diabetes Follow-Up Encounter Details Date Type Department Care Team Description 09/15/2021 Office Visit Pharmacy, [place] [address] [place] [address] [facility] [address] [place] [address] Type 2 diabetes mellitus with hemoglobin A1c goal of less than 7.0% ([facility])* Allergies Active Allergy Reactions Severity Noted Date Comments Adhesive Tape Itching 04/29/2020 Penicillins Rash 02/12/2008 Perflutren Protein A Microsph 2019 Definity-lower back pain documented as of this encounter (statuses as of 09/15/2021) Medications Medication Sig Dispensed Refills Start Date End Date Status albuterol sulfate (PROVENTIL) (2.5 MG/3ML) 0.083% nebulizer solutionIndications: Pulmonary vascular congestion Inhale 1 Vial via nebulizer every 6 hours as needed for Wheezing. 120 Vial 11 10/02/2019 Active nystatin (NYSTOP) 213017 UNIT/GM powder Apply topically to affected area [...] 60 Each 3 07/27/2020 Active Dexcom G6 Lockstitch Sleeve Setter Device Use as directed. To [...] Strip 3 10/29/2020 Active OneTouch Delica Plus [id number] TESTING once daily 100 Each 10/29/2020 Active [...] as of this encounter (statuses as of 09/15/2021) Active Problems Problem Noted Date Chronic diastolic [...] as of this encounter (statuses as of 09/15/2021) Resolved Problems Problem Noted Date Resolved Date [...] pain 01/24/2012 01/17/2017 Genetic Sleep Disorder Research Other*[id number] 05/13/2011 04/07/2016 Obstructive sleep apnea 01/18/2011 12/27/19 [...] as of this encounter (statuses as of 09/15/2021) Immunizations Name Administration Dates Next Due COVID-19 [...] this encounter Progress Notes * Indira Hudson, [facility] - 09/15/2021 1:05 PM EST Medication Therapy [...] with . BG Readings Patient forgot Dexcom plate painter apprentice so unable to view BG. Denies hypoglycemia. [...] contact clinic with any issues. Patient is agreeable to SMBG with Dexcom [...] weeks Next Office Visit: 11/10/2021 Scheduled Provider(s): [facility] Indira Hudson [facility] Clinical Pharmacist - Director Of Sports Performance Medication Therapy Management Clinic 09/15/2021, 1:05 PM documented in this encounter Plan of Treatment Upcoming Encounters Date Type Specialty Care Team Description 09/16/2021 Telemedicine Gastroenterology Katherine Moore, [place] [address] [facility] [address] 09/23/2021 Office Visit [facility] [place] [address] 10/20/2021 Immunization/Injection Hematology Oncolog y Nurse, Med 4 [address] [facility] [address] 10/22/2021 Office Visit Sleep Disorders Love Francisco DO [address] [place] [address] 11/02/2021 Imaging Radiology 11/10/2021 Office Visit Pharmacy [address] [address] 12/22/2021 Office Visit Endocrinology Alberta Duque PA-C [address] [facility] [id number] 12/23/2021 Office Visit Gastroenterology Lyssa Stout CRNP [address] [place] [address] 01/04/2022 Office Visit Hematology Oncology Tono Sanchez MD [address] [place] [address] 03/24/2022 Office Visit Pulmonary Reynaldo Marquez MD [address] [place] [address] 06/24/2022 Office Visit Sleep Disorders Love Francisco, DO [address] [facility] [place] [address] Scheduled Procedures Name Priority Associated Diagnoses Date/Ti [...] of this encounter Implants Implanted Type Area Drink Box Mechanic Device Identifier Shelf Expiration Date Model / Serial / Lot [employer] Sure Clip Implanted:Qty: 2 on 06/03/2020 by Janis Hatch DO at OR [facility] Clip N/A: Colon 04/21/2022 [facility]-F-26-2 35-C-R / / [id number] documented as of this encounter Visit Diagnoses Diagnosis Type 2 diabetes mellitus with hemoglobin A1c goal of less than 7.0% (HCC)- Primary documented in this encounter Advance Directives Documents on File Type Date Recorded Patient Chucking Machine Operator Expl 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 LIVING WILL AND HEALTH CARE POA Power [facility] 04/29/2021 12:00 AM TOM R [facility] POA Advanced Directive 04/01/2021 [...] Syed Bustos Spouse Emergency Contact Care Teams Immersion Metalcleaner Relationship Specialty Start Date End Date Vanita Dunn MD [address] [place] [address] PCP - General Family Medicine 03/16/21 documented as of this encounter
--- OUTSIDE RECORDS SUMMARY | 2023-05-10 19:56 | External Medical Summary | Summary of Care ---
Author Name Unknown Organization [place] [address] Care Team Providers Care Ball Truing Machine Operator Name Role Phone Vanita Dunn MD Primary Care Provid er Reason for Visit * Reason Comments Acute bleeding again, stom ach cramps, trouble holding urine and strong odor urine. Patient was previously told she had MRSA in her urine. Also has pain in left shoulder Encounter Details Date Type Department Care Team Description 09/14/2021 Office Visit [facility] Practice [facility] [address] [facility] [address] Jose Herring MD [address] [place] [address] Acute pain of left shoulder*; Dysuria; Wheelchair dependent Allergies Active Allergy Reactions Severity Noted Date [...] 120 Vial 11 10/02/2019 Active nystatin (NYSTOP) 193636 UNIT/GM powder Apply topically to affected area [...] 60 Each 3 07/27/2020 Active Dexcom G6 Bar Gauger And Lubricator Tender Device Use as directed. To test [...] Strip 3 10/29/2020 Active OneTouch Delica Plus [id number] TESTING once daily 100 Each 3 10/29/2020 [...] AT BEDTIME 30 Tablet 5 08/30/2021 Active Sulfamethoxazole-Tr imethoprim 800-160 MG Oral Tablet (Bactrim DS) Take 1 Tablet by mouth 2 times a day for 10 days. Until gone. 20 Tablet 0 09/14/2021 2 Active traMADol HCl 50 MG Oral Tablet (Ultram)Indications :Acute pain of left shoulder Take 1 Tablet by mouth 2 times a day as needed for Pain, Severe. 20 Tablet 0 09/14/2021 Active CENTRUM SILVER PO TABS Take 1 Tab by mouth daily. 1 Tab 0 05/25/2012 2 Discontinu ed(Dischar ged) vitamin c (ASCORBIC ACID) 500 MG Tablet Take 500 mg by mouth daily. 0 2 Discontinu ed(Dischar ged) Blood Glucose Monitoring Suppl (BLOOD GLUCOSE MONITOR SYSTEM) w/Device KIT Use to test once per day. 1 Kit 0 11/19/2019 2 Discontinu ed(Dischar ged) silver sulfadiazine (SILVADENE) 1 % cream Apply topically to affected area daily. Apply to right great toe 50 g 0 05/26/2020 2 Discontinu ed(Dischar ged) Cinnamon 500 MG Oral Capsule Take 500 mg by mouth daily. 0 2 Discontinu ed(Dischar ged) Cyclobenzaprine HCl 10 MG Oral Tablet (Flexeril) TAKE 1 TABLET ONCE DAILY AT BEDTIME 30 Tab 0 03/22/2021 2 Discontinu ed(Dischar ged) Potassium Chloride Selena ER 10 MEQ Oral Tablet Extended Release Take 10 mEq by mouth daily at noon. 0 2 Discontinu ed(Dischar ged) Tamsulosin HCl 0.4 MG Oral Capsule (Flomax)Indications :Acute bilateral low back pain without sciatica,Bilateral renal colic Take 1 Cap by mouth daily. 30 Cap 0 06/14/2021 2 Discontinu ed(Dischar ged) traMADol HCl 50 MG Oral Tablet (Ultram) Take 1 Tablet by mouth 2 times a day as needed for Pain, Severe. 20 Tablet 0 07/28/2021 2 Discontinu ed(Refill) documented as of this [...] pain 01/24/2012 01/17/2017 Genetic Sleep Disorder Research Other*[id number] 05/13/2011 04/07/2016 Obstructive sleep apnea 01/18/2011 12/27/19 [...] Sign Reading Time Taken Comments Blood Pressure 100/70 09/14/2021 1:49 PM EST Pulse 67 09/14/2021 1:49 PM EST Temperature 36.5 C (97.7 F) 09/14/2021 1:49 PM ES T Respiratory Rate 18 09/14/2021 1:49 PM EST Oxygen Saturation 95% 09/14/2021 1:49 PM EST Inhaled Oxygen Concentration - - [...] as of this encounter Progress Notes * Jose Herring MD - 09/14/2021 2:13 PM EST SUBJECTIVE: Shaina Bustos is a 66 year old female. Chief Complaint Patient presents with Acute bleeding again, stomach cramps, trouble holding urine and strong odor urine. Patient was previouslytold she had MRSA in her urine. Also has pain in left shoulder HPI: This is a morbidly obese 66 year old wheelchair-bound female with multiple medical problems who comes in today with her for ongoing dysuria and new left shoulder pain. states she was "pulling herself out of her chair and into bed, and strained her left shoulder." She was recently treated for a UTI a couple of weeks ago. About 4 days ago, the dysuria and cramping returned. Neither she nor her know exactly what medication she is taking. Apparently this patient is followed by a case maker. Patient and are refusing straight catheterization today. They also didn't bring in a urine,so I am going to have to treat this presumptively based on the last culture. Patient and tell me they have an appointment after this today, but they didn't know who it was with (it's with GI -- I let them know). Overall prognosis for this patient is guarded at best given clear psychosocial barriers to care andconfusion about medication. Patient Active Problem List Diagnosis Code Venous [...] less than 8.0% ([facility]) E11.9 Vitamin D deficiency E55.9 Restrictive lung disease J98.4 Obesity, morbid (more than 100 lbs over ideal weight or BMI > 40) ([facility]) E66.01 Dyslipidemia E78.5 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 R39.81 Acquired hypothyroidism E03.9 Chronic pain syndrome G89.4 MEDICATION USE AGREEMENT [id number] Cirrhosis of liver (HCC) K74.60 THAD on CPAP G47.33, Z99.89 Wheelchair dependent Z99.3 DM type 2 with diabetic peripheral neuropathy ([facility]) E11.42 Primary insomnia F51.01 Recurrent major depressive disorder, in partial remission ([facility]) F33.41 Impaired mobility and ADLs Z74.09, Z78.9 Gastroesophageal reflux disease K21.9 Fibromyalgia M79.7 Thrombocytopenia (HCC) D69.6 Iron deficiency anemia due to chronic blood loss D50.0 Esophageal varices (HCC) I85.00 Cyst of pancreas K86.2 Portal hypertensive gastropathy (HCC) K76.6, K31.89 Chronic diastolic (congestive) heart failure (HCC) I50.32 Current Outpatient Medications Medication Sig Dispense Refill Sulfamethoxazole-Trimethoprim 800-160 MG Oral Tablet (Bactrim DS) Take 1 Tablet by mouth 2 times a day for 10 days. Until gone. 20 Tablet 0 traMADol HCl 50 MG Oral Tablet (Ultram) Take 1 Tablet by mouth 2 times a day as needed for Pain, Severe. 20 Tablet 0 albuterol sulfate (PROVENTIL) (2.5 MG/3ML) 0.083% nebulizer solution Inhale 1 Vial via nebulizer every 6 hours as needed for Wheezing. 120 Vial 11 nystatin (NYSTOP) 425067 UNIT/GM powder Apply topically to affected area [...] a day. 60 Each 3 Dexcom G6 Bar Gauger And Lubricator Tender Device Use as directed. To test [...] daily 100 Strip 3 OneTouch Delica Plus [id number] TESTING once daily 100 Each 3 Nitroglycerin [...] (5 mL) of heparin. 1 Each N/A Furosemide 20 MG Oral Tablet (Lasix) Take [...] BY MOUTH AT BEDTIME 30 Tablet 5 No current facility-administered medications for this visit. Allergy: Review of patient's allergies indicates: Allergen Reactions Adhesive Tape Itching Pcn [Penicillins] Rash Perflutren Protein A Microsph Definity-lower back pain OBJECTIVE: BP 100/70 | Pulse 67 | Temp 36.5 C (97.7 F) (Tympanic) | Resp 18 | SpO2 95% Gen: morbidly obese, wheelchair bound, unable to examine due to immobility and inability to get outof chair for exam ASSESSMENT AND PLAN: (M25.512) Acute pain of left shoulder (primary encounter diagnosis) Plan: traMADol HCl 50 MG Oral Tablet (Ultram) -has used in the past for pain and tolerated (R30.0) Dysuria Plan: will treat with bactrim ds x 10 days based on last culture (Z99.3) Wheelchair dependent Plan: noted Follow up as needed. No other complaints were offered at this time. Jose Herring MD documented in this encounter Nursing Notes * Abbie Tran RN - 09/14/2021 1:53 PM EST The patient has been properly identified by confirmation of name and date of . Chief Complaint Patient presents with Acute bleeding again, stomach cramps, trouble holding urine and strong odor urine. Patient was previouslytold she had MRSA in her urine. Also has pain in left shoulder documented in this encounter Plan of Treatment Upcoming Encounters Date Type Specialty Care Team Description 09/14/2021 Office Visit Gastroenterology Lyssa Stout CRNP 132 [facility] [place] [address] Arrived 09/15/2021 Office Visit Pharmacy [address] [address] 09/16/2021 Telemedicine Gastroenterology Katherine Moore RDN [address] [place] [address] 09/23/2021 Office Visit Cardiology Quyen Canseco CRNP 132 [facility] [place] [address] 10/20/2021 Immunization/Injection Hematology Oncolog y Nurse, Med 4 [address] [facility] [place] [address] 10/22/2021 Office Visit Sleep Disorders Love Francisco DO [address] [facility] [place] [address] 12/22/2021 Office Visit Endocrinology Alberta Duque PA-C [address] [place] [address] 01/04/2022 Office Visit Hematology Oncology Tono Sanchez MD [address] [place] [address] 03/24/2022 Office Visit Pulmonary Reynaldo Marquez MD [address] [place] [id number] 06/24/2022 Office Visit Sleep Disorders Love Francisco DO [address] [place] [address] Scheduled Procedures Name Priority Associated Diagnoses Date/Ti [...] of this encounter Implants Implanted Type Area Deputy Court Device Identifier Shelf Expiration Date Model / Serial / Lot Micro[employer] Sure Clip Implanted:Qty: 2 on 06/03/2020 by Janis Hatch DO at OR [facility] Clip N/A: Colon 04/21/2022 [facility]-F-26-2 35-C-R / / [id number] documented as of this encounter Visit Diagnoses Diagnosis Acute pain of left shoulder- Primary Dysuria Wheelchair dependent Wheelchair dependence documented in this encounter Advance Directives Documents on File Type Date Recorded Patient Medical Practice Administrator 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 WILL AND HEALTH CARE POA Power of Process Analyst 04/29/2021 12:00 AM TOM R OF ENVIRONMENTAL HEALTH MANAGER HEALTH CARE POA Advanced Directive 04/01/2021 [...] File Name Relationship Healthcare [facility] Syed Bustos Spouse Emergency Contact Care Teams Ball Truing Machine Operator Relationship Specialty Start Date End Date Vanita Dunn MD [address] [place] [address] PCP - General Family Medicine 03/16/21 documented as of this encounter
--- OUTSIDE RECORDS SUMMARY | 2023-05-10 19:56 | External Medical Summary | Summary of Care ---
Author Name Unknown Organization [place] [address] Care Team Providers Care Maxillofacial Pathology Name Role Phone Vanita Dunn MD Primary Care Provid er Reason for Visit * Reason Comments Follow Up cirrhosis of the adry er, Encounter Details Date Type Department Care Team Description 09/14/2021 Office Visit Gastroenterology, [facility] 132 [facility] [place] [address] Lyssa Stout CRNP [address] [place] [address] Cirrhosis of liver without ascites, unspecified hepatic cirrhosis type (HCC)*; NAFLD (nonalcoholic fatty liver disease); Gastroesophageal reflux disease without esophagitis; Anemia, unspecified type Allergies Active Allergy Reactions [...] 120 Vial 11 10/02/2019 Active nystatin (NYSTOP) 496214 UNIT/GM powder Apply topically to affected area [...] 60 Each 3 07/27/2020 Active Dexcom G6 Alarm Adjuster Device Use as directed. To test blood [...] Strip 3 10/29/2020 Active OneTouch Delica Plus [id number] TESTING once daily 100 Each 10/29/2020 Active [...] pain 01/24/2012 01/17/2017 Genetic Sleep Disorder Research Other*[id number] 05/13/2011 04/07/2016 Obstructive sleep apnea 01/18/2011 12/27/19 [...] Reading Time Taken Comments Blood Pressure 102/58 09/14/2021 2:38 PM EST Pulse 69 09/14/2021 2:38 PM EST Temperature 36.4 C (97.5 F) 09/14/2021 2:38 PM ES T Respiratory Rate - - Oxygen Saturation 97% 09/14/2021 2:38 PM EST Inhaled Oxygen Concentration - - [...] encounter Progress Notes * ZAK Bolton - 09/14/2021 2:51 PM EST DATE OF SERVICE: 09/14/21 REFERRING PHYSICIAN: Rajwinder Carter DO CC: F/U NG cirrhosis HPI: 09/14/21: Patient reports having hematuria and shoulder [...] or dark tarry stools 05/11/2021 ([place] [facility] [place] Dr. 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 She was recently [place] [facility] [place]-03[place]11[place]21 with chest/epigastric pain. [...] same. No GI bleeding symptoms. 07/27/2020 -Shaina Belen Bustos is 65 yr old female pt [...] is normal. Past Medical History: Diagnosis Date Cerebral palsy [...] hemoglobin A1c goal of less than 7.0% ([facility]) 09/26/2013 ICD-10 update of inactive term Type 2 diabetes mellitus with hemoglobin A1c goal of less than 8.0% ([facility]) 09/26/2013 ICD-10 update of inactive term Family [...] DIAGNOSTIC (RECTUM) 10/04/2016 normal bx, repeat 10 yrs/[facility] COLONOSCOPY, DIAGNOSTIC (RECTUM) N/A 06/03/2020 internal hemorrhoids/biopsies show adenomatous polyps/recall 5 years/COLONOSCOPY FLEXIBLE PROXIMAL DIAGNOSTIC performed by Janis Hatch DO at OR [facility] COLONOSCOPY, DIAGNOSTIC (RECTUM) 03/17/2020 poor prep / [facility] DENTAL SURGERY PROCEDURE NEC wisdom teeth x 4 DILATION AND CURETTAGE (D&C) EGD, FLEXIBLE, DIAGNOSTIC 10/04/2016 gastritis/[facility] EGD, FLEXIBLE, DIAGNOSTIC 01/11/2018 eso varices, retained food, repeat 1 yr/[facility] EGD, FLEXIBLE, DIAGNOSTIC N/A 06/03/2020 severe erosive esophagitis/non-bleeding grade II esophageal varices/gastritis/biopsies show inflammatory changes/repeat 3-4 months/ESOPHAGOGASTRODUODENOSCOPY (EGD), FLEXIBLE, TRANSORAL, DIAGNOSTIC per formed by Janis Hatch DO at OR [facility] EGD, FLEXIBLE, DIAGNOSTIC 11/27/2019 eso varices, portal hypertensive gastropathy, gastritis / [facility] EGD, FLEXIBLE, DIAGNOSTIC N/A 08/05/2020 large amount of food in stomach/repeat 1.5 years/ESOPHAGOGASTRODUODENOSCOPY (EGD), FLEXIBLE, TRANSORAL, DIAGNOSTIC performed by Janis Hatch DO at OR [facility] EGD, FLEXIBLE, DIAGNOSTIC N/A 03/10/2021 ESOPHAGOGASTRODUODENOSCOPY (EGD), [...] used Substance Use Topics Alcohol use: No Drug use: No Comment: too much soda Review of patient's allergies indicates: Allergen Reactions Adhesive Tape Itching Pcn [Penicillins] Rash Perflutren Protein A Microsph Definity-lower back pain Current Outpatient Medications Medication Sig Dispense Refill albuterol sulfate (PROVENTIL) (2.5 MG/3ML) 0.083% nebulizer solution Inhale 1 Vial via nebulizer every 6 hours as needed for Wheezing. 120 Vial 11 nystatin (NYSTOP) 903190 UNIT/GM powder Apply topically to affected area [...] 2 times a day. 60 Each 3 Lidocaine-Prilocaine 2.5-2.5 % External Cream [...] doses in 15 minutes 25 Tab 11 Furosemide 20 MG Oral Tablet (Lasix) Take [...] ONCE DAILY AT BEDTIME 90 Tab 3 Senna-Docusate Sodium 8.6-50 MG Oral Tablet [...] needed for Pain, Severe. 20 Tablet 0 Dexcom G6 Alarm Adjuster Device Use as directed. To test blood [...] days. Dx E11.9 1 Each 3 OneTouch Delica Plus [id number] TESTING once daily 100 Each 3 BiPAP every night at bedtime. MEDICAL INSTRUCTIONS Please de-access patient's port. Please flush with 10 mL of NS, followed by 500 units (5 mL) of heparin. 1 Each N/A Oxybutynin Chloride 5 MG Oral Tablet (Ditropan) TAKE 1 TABLET BY MOUTH TWICE DAILY 180 Tab 1 Potassium Chloride ER 10 MEQ Oral [...] ONCE DAILY BEFORE BREAKFAST 90 Capsule 1 Lactulose 10 GM/15ML Oral Solution (Constulose) (Patient not taking: Reported on 09/14/2021) No current facility-administered medications for this visit. REVIEW OF SYSTEMS: See HPI above; All other findings negative. EXAM: Filed Vitals: 09/14/21 1438 BP: 102/58 Pulse: 69 Temp: 36.4 C (97.5 F) SpO2: 97% GENERAL: Well developed and [...] B immunity: completed series - HCC screening f5mstley: AFP and repeat RUQ u/s - Encouraged to abstain from ETOH, illicit drugs, APAP no more than 2g daily - Low salt (2g) daily - Advised good control of blood sugars - Per Hepatology's last notes, consider TIPS if persistent anemia 2/2 portal HTN gastropathy. Will monitor blood ct - Pt and get Pill Packs from her pharmacy. They were both unsure about the medications. We will obtain a full medication list from [facility] pharmacy and updated her medications in our records. Nomed changes today until accurate medicine list is obtained. I spent a total of 30 minutes [...] TO CLINIC: 3 months or sooner prn Lyssa Esteban Ho Gastroenterology, Chau Fernandes documented in this encounter Nursing Notes * Sabine Valencia LPN - 09/14/2021 2:44 PM EST Patient identified by name and date of . Chief Complaint Patient presents with Follow Up cirrhosis of the liver, Symptoms: headache, bloating/gas, abdominal pain and extremity edema - bozena lower legs per pt Bowel Movement Frequency: once day - maybe twice Bowel Movement Consistency: formed/soft Straining: no Rectal Pain: no Blood in Stool: No documented in this encounter Plan of Treatment Upcoming Encounters Date Type Specialty Care Team Description 09/14/2021 Laboratory Laboratory Johanna Fernandes [address] [place] [address] Hyperammonemia (HCC); Type 2 diabetes mellitus with hemoglobin A1c goal of less than 7.0% (HCC) 09/15/2021 Office Visit Pharmacy [facility] [address] [place] [address] 09/16/2021 Telemedicine Gastroenterology Katherine Moore, RDN [address] [place] [address] 09/23/2021 Office Visit Cardiology Quyen Canseco CRNP [address] [place] [address] 10/20/2021 Immunization/Inject ion Hematology Oncology Nurse, Med 4 [address] [facility] [address] 10/22/2021 Office Visit Sleep Disorders Love Francisco DO [address] [place] [address] 11/02/2021 Imaging Radiology 12/22/2021 Office Visit Endocrinology Alberta Duque PA-C [address] [place] [address] 12/23/2021 Office Visit Gastroenterology Lyssa Stout CRNP [address] [place] [address] 01/04/2022 Office Visit Hematology Oncology Tono Sanchez MD [address] [place] [address] 03/24/2022 Office Visit Pulmonary Reynaldo Marquez MD [address] [place] [address] 06/24/2022 Office Visit Sleep Disorders Love Francisco DO [address] [facility] [place] [address] Pending Results Name Type Priority Associated Diagnoses Date /Time CBC WITH WBC DIFFERENTIAL Lab Routine Cirrhosis of liver without ascites, unspecified hepatic cirrhosis type (HCC) 09/14/2021 3:22 PM EST PT INR Lab Routine Cirrhosis of liver without ascites, unspecified hepatic cirrhosis type (HCC) 09/14/2021 3:22 PM EST ALPHA-FETOPROTEIN TUMOR MARKER Lab Routine Cirrhosis of liver without ascites, unspecified hepatic cirrhosis type (HCC) 09/14/2021 3:22 PM EST CBC Lab Routine Cirrhosis of liver without ascites, unspecified hepatic cirrhosis type (HCC) 09/14/2021 3:22 PM EST DIFFERENTIAL, AUTOMATED Lab Routine Cirrhosis of liver without ascites, unspecified hepatic cirrhosis type (HCC) 09/14/2021 3:22 PM EST Scheduled Orders Name Type Priority Associated Diagnoses Orde r Schedule US ABDOMEN LIMITED Medical Imaging Routine Cirrhosis of liver without ascites, unspecified hepatic cirrhosis type (HCC) Ordered: 09/14/2021 Scheduled Procedures Name Priority Associated Diagnoses Date/Ti [...] of this encounter Implants Implanted Type Area Lacing Cutter Device Identifier Shelf Expiration Date Model / Serial / Lot [employer] Sure Clip Implanted:Qty: 2 on 06/03/2020 by Janis Hatch DO at OR [facility] Clip N/A: Colon 04/21/2022 [facility]-F-26-2 35-C-R / / [id number] documented as of this encounter Visit Diagnoses Diagnosis Cirrhosis of liver without ascites, unspecified hepatic cirrhosis type (HCC)- Primary NAFLD (nonalcoholic fatty liver disease) Other chronic nonalcoholic liver disease Gastroesophageal reflux disease without esophagitis Esophageal reflux Anemia, unspecified type Hyperammonemia (HCC) Disorders of urea cycle metabolism Type 2 diabetes mellitus with hemoglobin A1c goal of less than 7.0% (HCC) documented in this encounter Advance Directives Documents on File Type Date Recorded Patient Director Of Premium Seat Sales 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 WILL AND HEALTH CARE POA Power of Water Valve Mechanic 04/29/2021 12:00 AM [facility] R OF REFUSE COLLECTOR HEALTH CARE POA Advanced Directive 04/01/2021 1:14 [...] Syed Bustos Spouse Emergency Contact Care Teams Maxillofacial Pathology Relationship Specialty Start Date End Date Vanita Dunn MD [address], [place] [id number] PCP - General Family Medicine 03/16/21 documented as of this encounter
--- OUTSIDE RECORDS SUMMARY | 2023-05-10 19:56 | External Medical Summary ---
Author Name Unknown Address Unknown Organization [id number]:LABORATORY [facility] - [address] [place] [address] Laboratory Report Ordering Provider Test Date Status SARA DILLON 09/14/2021 15:22:08 Final Observation Date Value Abnormality Reference (Units ) Status BUN 09/14/2021 15:22:08 19 6-20 (mg/dL) Final Creatinine 09/14/2021 15:22:08 0.7 0.5-1.0 (mg/dL) Final Glomerular filtration rate/1.73 sq M.predicted [Volume Rate/Area] in Serum, Plasma or Blood by Creatinine-based formula (CKD-EPI) 09/14/2021 15:22:08 86 >=60 (mL/min) Final Performing Location LABORATORY C - [address] [place] [address]
--- OUTSIDE RECORDS SUMMARY | 2023-05-10 19:56 | External Medical Summary ---
Author Name Unknown Address Unknown Organization K01:[facility] [address] [place] [address] Laboratory Report Ordering Provider Test Date Status ODESSA GUSMAN 09/14/2021 15:22:08 Final Observation Date Value Abnormality Reference (Units ) Status WBC, Total 09/14/2021 15:22:08 3.17 Below low normal 4. 00-10.80 (K/uL) Final RBC 09/14/2021 15:22:08 2.65 Below low normal 3.8 5-5.15 (M/uL) Final Hemoglobin 09/14/2021 15:22:08 7.7 Below low normal 12 .0-15.3 (g/dL) Final HCT 09/14/2021 15:22:08 27.7 Below low normal 36. 0-45.2 (%) Final MCV 09/14/2021 15:22:08 104.5 Above high normal 81 .5-97.5 (fL) Final MCH 09/14/2021 15:22:08 29.1 27.0-34.0 (pg) Final MCHC 09/14/2021 15:22:08 27.8 Below low normal 32. 0-36.0 (g/dL) Final RDW 09/14/2021 15:22:08 20.4 Above high normal 11 .5-15.5 (%) Final MPV 09/14/2021 15:22:08 Final Performing Location [facility] [place] [address] [place] [address]
--- OUTSIDE RECORDS SUMMARY | 2023-05-10 19:56 | External Medical Summary | Summary of Care ---
Author Name Unknown Organization [place] [address] Care Team Providers Care Foil Spinner Name Role Phone Vanita Dunn MD Primary Care Provid er Reason for Visit * Reason Onset Date Comments Medication Update 09/14/2021 Encounter Details Date Type Department Care Team Description 09/14/2021 Telephone Gastroenterology, [facility] [address] [facility] [place] [address] Lyssa Stout CRNP [address] [place] [address] Medication Update Allergies Active Allergy Reactions Severity [...] 120 Vial 11 10/02/2019 Active nystatin (NYSTOP) 212751 UNIT/GM powder Apply topically to affected area [...] 60 Each 3 07/27/2020 Active Dexcom G6 Welder Assembler Device Use as directed. To test [...] Strip 3 10/29/2020 Active OneTouch Delica Plus [id number] TESTING once daily 100 Each 10/29/2020 Active [...] pain 01/24/2012 01/17/2017 Genetic Sleep Disorder Research Other*[id number] 05/13/2011 04/07/2016 Obstructive sleep apnea 01/18/2011 12/27/19 [...] [facility] pill [facility] at [facility]. I tried calling today however kept on getting busy dial tones. Please scanthe list of medications after this is obtain so we can update her medication list. ZAK Schreiber documented in this encounter Plan of Treatment Upcoming Encounters Date Type Specialty Care Team Description 09/14/2021 Office Visit Gastroenterology Lyssa Stout CRNP [address] [place] [address] Cirrhosis of liver without ascites, unspecified hepatic cirrhosis type (HCC)*; NAFLD (nonalcoholic fatty liver disease); Gastroesophageal reflux disease without esophagitis; Anemia, unspecified type 09/14/2021 Laboratory Laboratory Johanna Fernandes [address] [place] [address] Hyperammonemia (HCC); Type 2 diabetes mellitus with hemoglobin A1c goal of less than 7.0% (HCC) 09/15/2021 Office Visit Pharmacy [facility] [address] [place] [address] 09/16/2021 Telemedicine Gastroenterology Katherine Moore RDN [address] [place] [address] 09/23/2021 Office Visit Cardiology Quyen Canseco CRNP [address] [facility] [place] [address] 10/20/2021 Immunization/Inject ion Hematology Oncology Nurse, Med [address] [place] [address] 10/22/2021 Office Visit Sleep Disorders Love Francisco DO [address] [facility] [place] [address] 11/02/2021 Imaging Radiology 12/22/2021 Office Visit Endocrinology Alberta Duque PA-C [address] [place], [place] [phone] 12/23/2021 Office Visit Gastroenterology Lyssa Stout CRNP [address] [facility] [place] [address] 01/04/2022 Office Visit Hematology Oncology Tono Sanchez MD [address] [place] [address] 03/24/2022 Office Visit Pulmonary Reynaldo Marquez MD [address] [place] [address] 06/24/2022 Office Visit Sleep Disorders Love Francisco, DO [address] [place] [address] Scheduled Procedures Name Priority Associated Diagnoses Date/Ti [...] of this encounter Implants Implanted Type Area Corporate Relations Manager Device Identifier Shelf Expiration Date Model / Serial / Lot Microtech Sure Clip Implanted:Qty: 2 on 06/03/2020 by Janis Hatch DO at OR [facility] Clip N/A: Colon 04/21/2022 [id number]-F-[id number] 35-C-R / / [id number] documented as of this encounter Advance Directives Documents on File Type Date Recorded Patient Axminster Weaver 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 WILL AND HEALTH CARE POA Power of Hospital Nurse Liaison 04/29/2021 12:00 AM [facility] Advanced Directive 04/01/2021 1:14 [...] Syed Bustos Spouse Emergency Contact Care Teams Foil Spinner Relationship Specialty Start Date End Date Vanita Dunn MD [address], [place] [phone] PCP - General Family Medicine 03/16/21 documented as of this encounter
--- OUTSIDE RECORDS SUMMARY | 2023-05-10 19:56 | External Medical Summary ---
Author Name Unknown Address Unknown Organization [id number]:LABORATORY [facility] [place] - [address] [place] [address] Laboratory Report Ordering Provider Test Date Status ODESSA GUSMAN 09/14/2021 15:22:08 Final Observation Date Value Abnormality Reference (Units ) Status Anisocytosis [Presence] in Blood by Light microscopy 09/14/2021 15:22:08 Moderate Abnormal None Seen Final Elliptocytes [Presence] in Blood by Light microscopy 09/14/2021 15:22:08 Few Abnormal None Seen Final Hypochromia [Presence] in Blood by Light microscopy 09/14/2021 15:22:08 Slight Abnormal None Seen Final Macrocytes [Presence] in Blood by Light microscopy 09/14/2021 15:22:08 Present Abnormal None Seen Final Dacrocytes [Presence] in Blood by Light microscopy 09/14/2021 15:22:08 Few Abnormal None Seen Final Performing Location LABORATORY [facility] - [address] [place] [address]
--- OUTSIDE RECORDS SUMMARY | 2023-05-10 19:56 | External Medical Summary ---
Author Name Unknown Address Unknown Organization [id number]:LABORATORY [facility] - [address] [place] [address] Laboratory Report Ordering Provider Test Date Status VALENTINE GUSMANHON 09/14/2021 15:22:08 Final Observation Date Value Abnormality Reference (Units ) Status PT 09/14/2021 15:22:08 16.3 Above high normal 11 .5-14.6 (seconds) Final INR 09/14/2021 15:22:08 1.29 Above high normal 0. 84-1.14 Final Performing Location LABORATORY [facility] [address] - [address] [place] [address]
--- OUTSIDE RECORDS SUMMARY | 2023-05-10 19:56 | External Medical Summary ---
Author Name Unknown Address Unknown Organization [id number]:LABORATORY [facility] [place] - [address] [facility] [place] [address] Laboratory Report Ordering Provider Test Date Status ODESSA GUSMAN 09/14/2021 15:22:08 Final Observation Date Value Abnormality Reference (Units ) Status SYNC LEUKOCYTES IN BLOOD BY AUTOMATED COUNT 09/14/2021 15:22:08 3.17 Below low normal 4.00-10.80 (K/uL) Final Segs 09/14/2021 15:22:08 53.0 40.0-75.0 (%) Final Lymphs % 09/14/2021 15:22:08 27.1 18.0-42.0 (%) Final Monos 09/14/2021 15:22:08 12.0 Above high normal 1.0-11.0 (%) Final Eosinophils 09/14/2021 15:22:08 6.0 0.0-6.0 (%) Final Basos 09/14/2021 15:22:08 1.3 0.0-2.0 (%) Final Immature Granulocyte, Percent 09/14/2021 15:22:08 0.6 0.0-2.0 (%) Final Absolute Segs 09/14/2021 15:22:08 1.68 Below low normal 1.80-7.70 (K/uL) Final Lymphs, absolute 09/14/2021 15:22:08 0.86 Below low normal 1.00-4.80 (K/ul) Final Monos, Abs 09/14/2021 15:22:08 0.38 0.00-1.10 (K/uL) Final Eos, Abs 09/14/2021 15:22:08 0.19 0.00-0.70 (K/uL) Final Basos, Abs 09/14/2021 15:22:08 0.04 0.00-0.20 (K/uL) Final Immature Granulocytes, Number 09/14/2021 15:22:08 0.02 0.00-0.20 (K/uL) Final Performing Location LABORATORY [facility] - [facility] [address] [facility] [address]
--- OUTSIDE RECORDS SUMMARY | 2023-05-10 19:56 | External Medical Summary ---
Author Name Unknown Address Unknown Organization K01:LABORATORY [facility] [place] - [address] [place] [address] Laboratory Report Ordering Provider Test Date Status YUE JACOBO 09/14/2021 15:22:08 Final Observation Date Value Abnormality Reference (Units ) Status Triglyceride 09/14/2021 15:22:08 75 <=174 ( mg/dL) Final Performing Location LABORATORY [facility] - [address] [place] [address]
--- OUTSIDE RECORDS SUMMARY | 2023-05-10 19:56 | External Medical Summary ---
Author Name Unknown Address Unknown Organization K01:LABORATORY [facility] - [address] [place] [address] Laboratory Report Ordering Provider Test Date Status WILMASARA Gracia 09/14/2021 15:22:08 Final Observation Date Value Abnormality Reference (Units ) Status Ammonia 09/14/2021 15:22:08 219 Above upper panic limits 11-35 (umol/L) Final Performing Location LABORATORY [facility] - [address] [place] [place] [address]
--- OUTSIDE RECORDS SUMMARY | 2023-05-10 19:56 | External Medical Summary ---
Author Name Unknown Address Unknown Organization [id number]:LAB[facility]ATORY [facility] [place] - [address] [place] [address] Laboratory Report Ordering Provider Test Date Status ODESSA GUSMAN 09/14/2021 15:22:08 Final Observation Date Value Abnormality Reference (Units ) Status Alpha-Fetoprotein 09/14/2021 15:22:08 4.4 0. 0-8.3 (ng/mL) Final Performing Location LABORATORY [facility] - [address] [place] [address]
--- OUTSIDE RECORDS SUMMARY | 2023-05-10 19:57 | External Medical Summary | Summary of Care ---
Author Name Unknown Organization [place] [address] Care Team Providers Care Electronic Calibration Technician Name Role Phone Vanita Dunn MD Primary Care Provid er Reason for Visit * Reason Onset Date Comments Appointment 09/13/2021 Encounter Details Date Type Department Care Team Description 09/13/2021 Telephone [facility] [address] [place] [address] Vanita Dunn MD [address] [place] [address] Appointment Allergies Active Allergy Reactions Severity Noted Date Comments Adhesive Tape Itching 04/29/2020 Penicillins Rash 02/12/2008 Perflutren Protein A Microsph 2019 Definity-lower back pain documented as of this encounter (statuses as of 09/13/2021) Medications Medication Sig Dispensed Refills Start Date End Date Status CENTRUM SILVER PO TABS Take 1 Tab by mouth daily. 1 Tab 0 05/25/2012 Active vitamin c (ASCORBIC ACID) 500 MG Tablet Take 500 mg by mouth daily. 0 Active albuterol sulfate (PROVENTIL) (2.5 MG/3ML) 0.083% nebulizer solutionIndications: Pulmonary vascular congestion Inhale 1 Vial via nebulizer every 6 hours as needed for Wheezing. 120 Vial 11 10/02/2019 Active nystatin (NYSTOP) 190854 UNIT/GM powder Apply topically to affected area 3 times a day. 60 g 1 10/16/2019 Active Albuterol Sulfate (ALBUTEROL HFA) 108 (90 BASE) MCG/ACT inhalerIndications:I ntermittent asthma with reliever use up to twice per week without complication Inhale 2 Puffs by mouth every 4 hours as needed for Cough or Wheezing. With spacer 16 g 1 11/06/2019 Active Blood Glucose Monitoring Suppl (BLOOD GLUCOSE MONITOR SYSTEM) w/Device KIT Use to test once per day. 1 Kit 0 11/19/2019 Active silver sulfadiazine (SILVADENE) 1 % cream Apply topically to affected area daily. Apply to right great toe 50 g 0 05/26/2020 Active Ipratropium-Albutero l 0.5-2.5 (3) MG/3ML Inhalation [...] 60 Each 3 07/27/2020 Active Dexcom G6 Structural Layout Worker Device Use as directed. To test [...] Strip 3 10/29/2020 Active OneTouch Delica Plus [id number] TESTING once daily 100 Each 3 10/29/2020 Active Cinnamon 500 MG Oral Capsule Take 500 mg by mouth daily. 0 Active Nitroglycerin 0.4 MG Sublingual Tablet Sublingual [...] of heparin. 1 Each 0 03/12/2021 Active Cyclobenzaprine HCl 10 MG Oral Tablet (Flexeril) TAKE 1 TABLET ONCE DAILY AT BEDTIME 30 Tab 0 03/22/2021 Active Potassium Chloride Selena ER 10 MEQ Oral Tablet Extended Release Take 10 mEq by mouth daily at noon. 0 Active Furosemide 20 MG Oral Tablet [...] 7.0% (FORMERLY [facility]) Inject one pen (4.5 mg) under the [...] other meds) 35 Tab 11 06/11/2021 Active Tamsulosin HCl 0.4 MG Oral Capsule (Flomax)Indications: Acute bilateral low back pain without sciatica,Bilateral renal colic Take 1 Cap by mouth daily. 30 Cap 0 06/14/2021 Active Linzess 290 MCG Oral Capsule (linaCLOtide) TAKE 1 CAPSULE BY MOUTH ONCE DAILY BEFORE BREAKFAST 90 Capsule 1 07/22/2021 Active Senna-Docusate Sodium 8.6-50 MG Oral TabletIndications:Co nstipation, unspecified constipation type Take 1 Tablet by mouth daily. 90 Tablet 2 07/26/2021 Active traMADol HCl 50 MG Oral Tablet (Ultram) Take 1 Tablet by mouth 2 times a day as needed for Pain, Severe. 20 Tablet 0 07/28/2021 Active Bisacodyl 5 MG Oral Tablet Delayed [...] AT BEDTIME 30 Tablet 5 08/30/2021 Active documented as of this encounter (statuses as of 09/13/2021) Active Problems Problem Noted Date Food insecurity 04/19/2021 Overview: Per [facility] Protocol Lactic acidosis 03/22/2021 Portal hypertensive gastropathy 03/16/20 21 Anginal chest pain at rest 02/20/2021 Acute on chronic heart failure with pres erved ejection fraction (HFpEF) 02/18/2021 Melena 02/15/2021 Vancomycin resistant enterococcus cultur e positive 02/15/2021 Urinary catheter dysfunction 02/15/2021 Cyst of pancreas 02/15/2021 Cardiomegaly 01/30/2021 SOB (shortness of breath) 01/30/2021 Uncontrolled type 2 diabetes mellitus wi th hyperglycemia 07/15/2020 Esophagitis 07/06/2020 Esophageal varices 07/06/2020 Iron deficiency anemia due to chronic bl ood loss 12/03/2019 Splenomegaly 12/03/2019 Thrombocytopenia 05/02/2019 Gastroesophageal reflux disease 04/08/20 19 History of Achilles tendon repair 2018 Anemia 04/08/2019 Fibromyalgia 04/08/2019 Achilles tendinitis, right leg 9 Ambulatory dysfunction 04/04/2019 DM type 2 with diabetic peripheral neuro heather 04/04/2019 Insomnia 04/04/2019 Recurrent major depressive disorder, in partial remission 04/04/2019 Impaired mobility and ADLs 04/04/2019 Generalized weakness 04/04/2019 Pancytopenia 02/21/2019 Wheelchair dependent 12/21/2018 THAD on CPAP 12/26/2017 Cirrhosis of liver 11/20/2017 Calculus of kidney 08/01/2017 Chronic pain syndrome 01/17/2017 MEDICATION USE AGREEMENT 01/17/2017 Overview: 01/17/17 Acquired hypothyroidism 12/12/2016 Atypical chest pain 08/19/2016 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 1 10/09/2015 Obesity, morbid (more than 100 lbs over ideal weight or BMI > 40) 02/09/2015 Restrictive lung disease 12/10/2014 Type 2 diabetes mellitus with hemoglobin A1c goal of less than 7.0% 09/26/2013 Overview: ICD-10 update of inactive term Vitamin D deficiency 09/26/2013 Primary osteoarthritis of right knee 09/2012 Lymphedema 03/11/2013 Moderate persistent asthma without compl ication 01/09/2013 Venous stasis dermatitis of both lower e xtremities 05/07/2012 NG (nonalcoholic steatohepatitis) 04/12 Hyperglycemia 05/02/2012 Constipation 05/02/2012 HTN, goal below 140/90 03/27/2012 Chronic rhinitis 03/27/2012 Cerebral palsy 01/24/2012 Spinal stenosis of lumbar region without neurogenic claudication 12/27/2010 Venous insufficiency 01/09/2009 DDD (degenerative disc disease), lumbar Dyslipidemia, goal LDL below 70 documented as of this encounter (statuses as of 09/13/2021) Resolved Problems Problem Noted Date Resolved Date AMS (altered mental status) 02/04/202101/10 Acute blood loss anemia 07/06/2020 12/01/19 21 Bacteremia 07/04/2020 11/30/2020 Diabetic ulcer of right great toe 05/25/2020 04/05/2021 Pain of upper abdomen 04/23/2020 05/05/2020 Cellulitis of right toe 04/18/2020 12/01/19 21 Cellulitis of right lower extremity 04/15/2020 11/30/2020 History of kidney stones 04/08/2019 020 History of delivery 04/08/2019 History of MRSA infection 04/08/20192019 History of migraine 04/08/2019 05/05/2020 Chronic hypoxemic respiratory failure 04/08/2019 04/18/2019 Oxygen dependent 04/08/2019 04/18/2019 USP resident 04/08/2019 05/02/2019 Fall 04/04/2019 05/05/2020 Sprain of right ankle 04/04/2019 05/05/2020 Preop examination 02/21/2019 04/04/2019 History of recent fall 12/21/2018 0 Bladder tumor 10/11/2017 02/13/2018 Chronic indwelling Cline catheter 10/11/2017 02/13/2018 Recurrent UTI 10/11/2017 02/13/2018 Preoperative cardiovascular examination 10/11/19 18 02/13/2018 History of Clostridium difficile colitis 017 05/05/2020 Debility 07/19/2017 02/13/2018 Body mass index (BMI) of 50.0 to 59.9 in adult 1 12/19/2017 Overview: Per Obesity protocol #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 7 02/13/2018 Depression with anxiety 08/19/2016 02/14/20 18 Hepatic [...] joint disease), ankle and foot 03/11/2013 07/02/2014 Asthma exacerbation 01/09/2013 06/07/2016 Cough 01/09/2013 06/07/2016 Vitamin D deficiency 10/19/2012 07/02/2014 Obesity, morbid (more than 1 00 lbs over ideal weight or BMI > 40) 05/25/2012 01/17/2017 Overview: BMI= 55.27 05/25/12 Impacted cerumen 05/25/2012 06/07/2016 Hemorrhage of rectum and anus 05/07/2012 Internal hemorrhoids with other complication 01/17/2017 Edema 05/07/2012 03/28/2017 Insect bite 05/07/2012 07/02/2014 Pruritic disorder 05/07/2012 07/02/2014 Diverticulosis of colon 05/02/2012 02/14/20 18 Internal hemorrhoids 04/12/2012 07/02/2014 Migraine variant, intractable 03/28/2012 Flatulence, eructation and gas pain 03/28/2012 06/07/2016 Shoulder joint pain 03/27/2012 06/07/2016 Myalgia and myositis 03/27/2012 07/02/2014 Chronic pain 03/27/2012 07/02/2014 Shoulder joint pain 03/27/2012 07/02/2014 Dyslipidemia, goal LDL below 100 03/27/2012 06/07/2016 Hypothyroidism 03/27/2012 01/17/2017 MEDICATION USE AGREEMENT 03/27/2012 012 MEDICATION USE AGREEMENT 03/27/2012 017 Overview: 03/27/12 Urinary tract infection 01/27/2012 04/03/20 21 Sleep disturbance 01/24/2012 07/02/2014 Malaise and fatigue 01/24/2012 06/07/2016 Myalgia and myositis 01/24/2012 06/07/2016 Urinary frequency 01/24/2012 07/02/2014 Urgency of urination 01/24/2012 06/07/2016 Kidney disease, chronic, stage III (GFR 30-59 ml /min) 01/24/2012 03/27/2012 Chronic pain 01/24/2012 01/17/2017 Genetic Sleep Disorder Research Other*[id number] 05/13/2011 04/07/2016 Obstructive sleep apnea 01/18/2011 12/27/19 [...] as of this encounter (statuses as of 09/13/2021) Immunizations Name Administration Dates Next Due COVID-19 [...] Miscellaneous Notes * Telephone Encounter - THAD Alcazar - 09/13/2021 12:18 PM EST Received call from home health nurse who indicated the patient completed a second round of antibiotics for a UTI and was experiencing bleeding again, stomach cramps, trouble holding urine and strong odor urine. Patient was previously told she had MRSA in her urine. Requesting a follow up appointment with family practice. Scheduled with Dr. Herring for 09/14/21 documented in this encounter Plan of Treatment Upcoming Encounters Date Type Specialty Care Team Description 09/14/2021 Office Visit Family Medicine Jose Herring MD [address] [place] [address] 09/14/2021 Office Visit Gastroenterology Lyssa Stout CRNP [address] [place] [address] 09/15/2021 Office Visit Pharmacy [facility] [address], [place] [phone] 09/16/2021 Telemedicine Gastroenterology Oscar Katherine, RDN [address] [place], [place] [phone] 09/23/2021 Office Visit Cardiology Quyen Canseco CRNP [address] [place] [address] 10/20/2021 Immunization/Injection Hematology Oncolog y Nurse, Med [address] [place] [address] 10/22/2021 Office Visit Sleep Disorders Love Francisco, [address] [place] [address] 12/22/2021 Office Visit Endocrinology Alberta Duque PA-C [address] [place] [address] 01/04/2022 Office Visit Hematology Oncology Tono Sanchez MD [address] [place] [address] 03/24/2022 Office Visit Pulmonary Reynaldo Marquez MD [address] [place] [address] 06/24/2022 Office Visit Sleep Disorders Love [place] [address] [facility] [address] Scheduled Procedures Name Priority Associated Diagnoses Date/Ti [...] of this encounter Implants Implanted Type Area Striper Spray Gun Device Identifier Shelf Expiration Date Model / Serial / Lot Microtech Sure Clip Implanted:Qty: 2 on 06/03/2020 by Janis Hatch DO at OR [facility] Clip N/A: Colon 04/21/2022 [id number]-F-26-2 35-C-R / / [id number] documented as of this encounter Advance Directives Documents on File Type Date Recorded Patient Experimental Worker 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 AND HEALTH CARE POA Power of Quality Assurance Consultant 04/29/2021 12:00 AM TOM R OF GENETICS NURSE HEALTH CARE POA Advanced Directive 04/01/2021 [...] Syed Bustos Spouse Emergency Contact Care Teams Electronic Calibration Technician Relationship Specialty Start Date End Date Vanita Dunn MD [address] [facility] [place] [phone] PCP - General Family Medicine 03/16/21 documented as of this encounter
--- OUTSIDE RECORDS SUMMARY | 2023-05-10 19:57 | External Medical Summary | Summary of Care ---
Author Name Unknown Organization [place] [address] Care Team Providers Care Chronic Disease Epidemiologist Name Role Phone Vanita Dunn MD Primary Care Provid er Reason for Visit * Reason Comments Procedure port flush Encounter Details Date Type Department Care Team Description 09/08/2021 Immunization/In jection Hematology/Oncology Treatment, [place] [address] [place] [address] Nurse, Med [address] [place] [address] Iron deficiency anemia due to chronic blood loss* Allergies Active Allergy Reactions Severity Noted Date Comments Adhesive Tape Itching 04/29/2020 Penicillins Rash 02/12/2008 Perflutren Protein A Microsph 2019 Definity-lower back pain documented as of this encounter (statuses as of 09/08/2021) Medications Medication Sig Dispensed Refills Start Date [...] 120 Vial 11 10/02/2019 Active nystatin (NYSTOP) 996844 UNIT/GM powder Apply topically to affected area [...] 60 Each 3 07/27/2020 Active Dexcom G6 Golf Ball Trimmer Device Use as directed. To test blood [...] Strip 3 10/29/2020 Active OneTouch Delica Plus [id number] TESTING once daily 100 Each 3 10/29/2020 [...] goal of less than 7.0% ([facility]) Inject one pen (4.5 mg) under [...] as of this encounter (statuses as of 09/08/2021) Active Problems Problem Noted Date Food insecurity [...] as of this encounter (statuses as of 09/08/2021) Resolved Problems Problem Noted Date Resolved Date [...] failure 04/08/2019 04/18/2019 Oxygen dependent 04/08/2019 04/18/2019 assisted resident 04/08/2019 05/02/2019 Fall 04/04/2019 05/05/2020 Sprain [...] pain 01/24/2012 01/17/2017 Genetic Sleep Disorder Research Other*[id number] 05/13/2011 04/07/2016 Obstructive sleep apnea 01/18/2011 12/27/19 [...] as of this encounter (statuses as of 09/08/2021) Immunizations Name Administration Dates Next Due COVID-19 [...] * Dulce Montes De Oca RN - 09/08/2021 4:15 PM EST Chair 12 VAD (Venous Access Device) accessed with #20G 3/4" without difficulty. VAD flushed with 10 ml NSS and Heparin 5 ml (100 units/ml). Mason needle removed intact. Patient tolerated treatment well and was discharged in stable condition. documented in this encounter Plan of Treatment Upcoming Encounters Date Type Specialty Care Team Description 09/09/2021 Imaging Radiology 09/14/2021 Office Visit Gastroenterology Lyssa Stout CRNP [address] [facility] [place] [address] 09/15/2021 Office Visit Pharmacy [place] [address] [facility] [place] [address] 09/16/2021 Telemedicine Gastroenterology Katherine Moore, RDN [address] [place] [address] 09/23/2021 Office Visit Cardiology Quyen Canseco CRNP [address] [place] [address] 10/20/2021 Immunization/Injection Hematology Oncolog y Nurse, Med 4 [address] [place] [address] 10/22/2021 Office Visit Sleep Disorders Love Francisco DO [address] [place] [address] 12/22/2021 Office Visit Endocrinology Alberta Duque PA-C [address] [place], [place] [id number] 01/04/2022 Office Visit Hematology Oncology Tono Sanchez MD [address] [place] [address] 03/24/2022 Office Visit Pulmonary Reynaldo Marquez MD [address] [place] [address] 06/24/2022 Office Visit Sleep Disorders Love Francisco DO 132 [facility] [place] [address] Scheduled Procedures Name Priority Associated Diagnoses Date/Ti [...] 12 and Over 07/27/2021 07/27/2020, 12/09/2015, 10/20/2014 BREAST CANCER SCREENING DISCUSSION YEARLY AGES 40-75 09/08/2021 09/08/2020, 09/02/2019, 04/04/2018, Additional history exists DIABETES-HGBA1C EVERY 6 MONTHS 02/17/2022 08/19/2021, 06/10/2021, 03/08/2021, Additional history exists DIABETES-FOOT EXAM 04/05/2022 04/05/2021, 0 11/06/2019, 01/09/2019, Additional history exists DIABETES-URINE MICROALBUMIN EVERY 12 MONTHS 04/16/2022 04/16/2021, 03/31/2021, 03/22/2021, Additional history exists Yearly B-12 07/06/2022 07/06/2021, 03/12, 03/21/2021, Additional history exists Pneumococcal Vaccine: 65+ Years [...] of this encounter Implants Implanted Type Area Gas Technician Device Identifier Shelf Expiration Date Model / Serial / Lot Microtech Sure Clip Implanted:Qty: 2 on 06/03/2020 by Janis Hatch DO at OR [facility] Clip N/A: Colon 04/21/2022 [facility]-F-26-2 35-C-R / / [id number] documented as of this encounter Visit Diagnoses Diagnosis Iron deficiency anemia due to chronic blood loss- Primary Iron deficiency anemia secondary to blood loss (chronic) documented in this encounter Administered Medications Active Administered Medications - up to 3 most recent administrations Medication Order MAR Action Action Date Dose Rate Site hEParin 100 UNIT/ML Lock Flush inj 500 Units 500 Units (5 mL), IV Lock, PRN Other, IV Flush, Starting on Mon09/08/21 at 1528, Until [place] 09/09/21 at 1527, For 24 hours, Do not flush if lock, PICC, or central line not in place; IV infusing or unable to flush. Given 09/08/2021 3:33 PM EST 500 Units sodium chloride 0.9% flush/inj 10 mL 10 mL, IV Push, PRN Other, IV Flush, Starting on Mon09/08/21 at 1528, Until [place] 09/09/21 at 1527, For 24 hours, Do not flush if lock, PICC, or central line not in place; IV infusing or unable to flush. Given 09/08/2021 3:33 PM EST 10 mL documented in this encounter Advance Directives Documents on File Type Date Recorded Patient Substation Operator Chief 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 DIRECTIVE / LIVING WILL LIVING WILL AND [facility] POA [facility] 04/29/2021 12:00 AM [facility] Advanced Directive 04/01/2021 1:14 [...] Syed Bustos Spouse Emergency Contact Care Teams Chronic Disease Epidemiologist Relationship Specialty Start Date End Date Vanita Dunn MD [address] [place] [address] PCP - General Family Medicine 03/16/21 documented as of this encounter
--- OUTSIDE RECORDS SUMMARY | 2023-05-10 19:58 | External Medical Summary | Summary of Care ---
Author Name Unknown Organization [facility] Address [place] [address] Care Team Providers Care Photoengraving Retoucher Name Role Phone Vanita Dunn MD Primary Care Provid er Encounter Details Date Type Department Care Team Description 08/30/2021 Telephone Family Practice [facility] [address] [place] [address] Mary Leos CRNP [address] [place] [address] Allergies Active Allergy Reactions Severity Noted Date Comments Adhesive Tape Itching 04/29/2020 Penicillins Rash 02/12/2008 Perflutren Protein A Microsph 2019 Definity-lower back pain documented as of this encounter (statuses as of 09/06/2021) Medications Medication Sig Dispensed Refills Start Date [...] 120 Vial 11 10/02/2019 Active nystatin (NYSTOP) 705346 UNIT/GM powder Apply topically to affected area [...] 60 Each 3 07/27/2020 Active Dexcom G6 Drafter Device Use as directed. To test [...] Strip 3 10/29/2020 Active OneTouch Delica Plus [id number] TESTING once daily 100 Each 3 10/29/2020 [...] as of this encounter (statuses as of 09/06/2021) Active Problems Problem Noted Date Food insecurity [...] as of this encounter (statuses as of 09/06/2021) Resolved Problems Problem Noted Date Resolved Date [...] failure 04/08/2019 04/18/2019 Oxygen dependent 04/08/2019 04/18/2019 half-way resident 04/08/2019 05/02/2019 Fall 04/04/2019 05/05/2020 Sprain [...] pain 01/24/2012 01/17/2017 Genetic Sleep Disorder Research Other*[id number] 05/13/2011 04/07/2016 Obstructive sleep apnea 01/18/2011 12/27/19 [...] as of this encounter (statuses as of 09/06/2021) Immunizations Name Administration Dates Next Due COVID-19 [...] encounter Miscellaneous Notes * Telephone Encounter - DEBBIE Pablo - 08/30/2021 1:49 PM EST Called to patient. Relayed results with her, as she was talking, phone call was lost. Will try again. * Telephone Encounter - ZAK Alicia - 08/30/2021 1:39 PM EST Please call pt and let her know that her urine culture did show an infection and that the antibiotic she is on now is effective for that bacteria so we don't need to make any changes. documented in this encounter Plan of Treatment Upcoming Encounters Date Type Specialty Care Team Description 09/08/2021 Immunization/Injection Hematology Oncolog y Nurse, Med 4 [address] [facility] [place] [address] 09/09/2021 Imaging Radiology 09/14/2021 Office Visit [facility]astroenterology Lyssa [facility]out CRNP [address] [facility] [address] 09/15/2021 Office Visit Pharmacy [address] [address] 09/16/2021 Telemedicine Gastroenterology Oscar Katherine, [place] [address] [place] [address] 09/23/2021 Office Visit Cardiology Quyen Canseco CRNP 132 [facility] [place] [address] 10/22/2021 Office Visit Sleep Disorders Love Francisco DO [address] [facility] [address] 12/22/2021 Office Visit Endocrinology Alberta Duque PA-C [address] [place] [address] 01/04/2022 Office Visit Hematology Oncology Tono Sanchez MD 200 [facility] [place] [address] 03/24/2022 Office Visit Pulmonary Reynaldo Marquez MD [address] [place] [address] 06/24/2022 Office Visit Sleep Disorders Love Francisco DO [address] [facility] [address] Scheduled Procedures Name Priority Associated Diagnoses Date/Ti [...] Completed , 06/01/2020, 06/05/2019, Additional history exists MENINGOCOCCAL (MENACTRA/MENVEO) Aged Out No longer eligible based on patient's age to complete this topic documented as of this encounter Implants Implanted Type Area Patient Care Specialist Device Identifier Shelf Expiration Date Model / Serial / Lot Microtech Sure Clip Implanted:Qty: 2 on 06/03/2020 by Janis Hatch DO at OR [facility] Clip N/A: Colon 04/21/2022 [facility]-F-26-2 35-C-R / / [id number] documented as of this encounter Advance Directives Documents on File Type Date Recorded Patient Orthodontic Assistant 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 WILL AND HEALTH CARE POA Power of Operations Professional 04/29/2021 12:00 AM TOM [facility] POA Advanced Directive 04/01/2021 1:14 [...] Agents on File Name Relationship Healthcare Agent [facility] p Communication Syed Bustos Spouse Emergency Contact Care Teams Photoengraving Retoucher Relationship Specialty Start Date End Date Vanita Dunn MD [address] [place] [address] PCP - General Family Medicine 03/16/21 documented as of this encounter
--- OUTSIDE RECORDS SUMMARY | 2023-05-10 19:58 | External Medical Summary | Summary of Care ---
Author Name Unknown Organization [place] [address] Care Team Providers Care Registrar Museum Name Role Phone Vanita Dunn MD Primary Care Provid er Reason for Visit * Reason Onset Date Comments Test Results 08/23/2021 allergies Encounter Details Date Type Department Care Team Description 08/23/2021 Telephone Pulmonary Medicine Suzie Barrera [address] [place] [id number] Reynaldo Marquez MD [address] [place] [address] Test Results (allergies) Allergies Active Allergy Reactions Severity Noted Date Comments Adhesive Tape Itching 04/29/2020 Penicillins Rash 02/12/2008 Perflutren Protein A Microsph 2019 Definity-lower back pain documented as of this encounter (statuses as of 08/24/2021) Medications Medication Sig Dispensed Refills Start Date [...] 120 Vial 11 10/02/2019 Active nystatin (NYSTOP) 993069 UNIT/GM powder Apply topically to affected area [...] 60 Each 3 07/27/2020 Active Dexcom G6 Concrete Paving Supervisor Device Use as directed. To test [...] Strip 3 10/29/2020 Active OneTouch Delica Plus [id number] TESTING once daily 100 Each 3 10/29/2020 Active Cinnamon 500 MG Oral Capsule Take 500 mg by mouth daily. 0 Active Nitroglycerin 0.4 MG Sublingual Tablet Sublingual (Nitrostat) Place 1 Tab under the tongue every 5 minutes as needed for Pain, Chest. up to 3 doses in 15 minutes 25 Tab 11 03/03/2021 Active Additional Information Patient not taking. Reported on 08/03/2021 BiPAP every night at bedtime. 0 Active MEDICAL INSTRUCTIONSIndicati ons:Iron deficiency anemia due to chronic blood loss Please de-access patient's port. Please flush with 10 mL of NS, followed by 500 units (5 mL) of heparin. 1 Each 0 03/12/2021 Active Cyclobenzaprine HCl 10 MG Oral Tablet (Flexeril) TAKE 1 TABLET ONCE DAILY AT BEDTIME 30 Tab 0 03/22/2021 Active Atorvastatin Calcium 80 MG Oral Tablet (Lipitor) Take 1 Tab by mouth at bedtime. 30 Tab 5 03/23/2021 Active Aspirin 81 MG Oral Tablet Chewable Take 1 Tab by mouth daily. 30 Tab 5 03/23/2021 Active Isosorbide Mononitrate ER 30 MG Oral Tablet Extended Release 24 Hour (Imdur) Take 1 Tab by mouth daily. 30 Tab 5 03/23/2021 Active Potassium Chloride Selena ER 10 MEQ [...] TIMES DAILY. 400 Each 3 08/23/2021 Active documented as of this encounter (statuses as of 08/24/2021) Active Problems Problem Noted Date Food insecurity [...] as of this encounter (statuses as of 08/24/2021) Resolved Problems Problem Noted Date Resolved Date [...] failure 04/08/2019 04/18/2019 Oxygen dependent 04/08/2019 04/18/2019 alf resident 04/08/2019 05/02/2019 Fall 04/04/2019 05/05/2020 Sprain [...] pain 01/24/2012 01/17/2017 Genetic Sleep Disorder Research Other*[id number] 05/13/2011 04/07/2016 Obstructive sleep apnea 01/18/2011 12/27/19 [...] as of this encounter (statuses as of 08/24/2021) Immunizations Name Administration Dates Next Due COVID-19 [...] encounter Miscellaneous Notes * Telephone Encounter - Janett Moya LPN - 08/24/2021 8:32 AM EST Pt's called back and asked me to review Dr Marquez's recommendations with him. Shaina is present and aware he is calling. I reviewed all recommendations with him in detail. He says "I'm not sure I buy all this" but said he would call if they have any questions or problems. * Telephone Encounter - Janett Moya LPN - 08/24/2021 8:07 AM EST I spoke with the pt and relayed Dr Marquez's message. She verbalized understanding. * Telephone Encounter - Reynaldo Marquez MD - 08/23/2021 1:01 PM EST Please let the patient know that she is allergic to grass and dust mites. Lifestyle modifications that can reduce dust mite exposure include: getting a dust mite mattress cover for your bed, wash bedsheets once a week in hot water, get rid of carpets / curtains / things that collect dust in your bedroom and home; do not allow pets in the bedroom. documented in this encounter Plan of Treatment Upcoming Encounters Date Type Specialty Care Team Description 08/25/2021 Office Visit Family Medicine Torrie Arciniega PA-C [address] [place] [id number] 09/08/2021 Immunization/Injection Hematology Oncolog y Nurse, Med 4 [address] [facility] [address] 09/09/2021 Imaging Radiology 09/14/2021 Office Visit Gastroenterology Lyssa Stout CRNP [address] [place] [address] 09/15/2021 Office Visit Pharmacy [address] [address] 09/16/2021 Telemedicine Gastroenterology Katherine Moore RDN [address] [place], [place] [id number] 10/22/2021 Office Visit Sleep Disorders Love Francisco DO [address] [place] [address] 12/22/2021 Office Visit Endocrinology Alberta Duque PA-C [address] [place], [place] [phone] 01/04/2022 Office Visit Hematology Oncology Tono Sanchez MD 200 [facility] [address] 03/24/2022 Office Visit Pulmonary Reynaldo Marquez MD [address] [place], [place] [address] 06/24/2022 Office Visit Sleep Disorders Love Francisco, DO [address] [place] [address] Scheduled Procedures Name Priority Associated Diagnoses Date/Ti me ESOPHAGOGASTRODUODENOSCOPY ( EGD), FLEXIBLE, TRANSORAL, DIAGNOSTIC Recall Esophagitis COLONOSCOPY FLEXIBLE PROXIMAL DIAGNOSTIC Recall History of colonic polyps Health Maintenance Due Date Last Done Comments DIABETES-EYE EXAM 06/12/2019 06/12/2018, , 06/12/2018, Additional history exists Dexa Scan 2020 Zoster Vaccines (3 of 3) 06/23/2020 04/28/2020, 11/11 COVID-19 Vaccine (3 - Booster for Moderna series) 06/22/2021 12/21/2020, 11/23/2020 BREAST CANCER SCREENING DISCUSSION YEARLY AGES 40-75 [...] - Td or Tdap) 05/01/2027 05/01/2017, 05/26/2008 *DEPRESSION SCREENING,ANNUAL FOR PTS 12 AND OVER Completed 12/09/2015, 10/20/2014 Influenza Vaccine (FLU shot) Completed , 06/01/2020, 06/05/2019, Additional history exists MENINGOCOCCAL (MENACTRA/MENVEO) Aged Out No longer eligible based on patient's age to complete this topic documented as of this encounter Implants Implanted Type Area Program Support Assistant Device Identifier Shelf Expiration Date Model / Serial / Lot Microtech Sure Clip Implanted:Qty: 2 on 06/03/2020 by Janis Hatch DO at OR [facility] Clip N/A: Colon 04/21/2022 [facility]-F-26-2 35-C-R / / [id number] documented as of this encounter Advance Directives Documents on File Type Date Recorded Patient Explosive Ordnance Specialist 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 WILL AND HEALTH CARE POA Power of Dialysis Registered Nurse 04/29/2021 12:00 AM TOM [facility] POA Advanced [...] Syed Bustos Spouse Emergency Contact Care Teams Registrar Museum Relationship Specialty Start Date End Date Vanita Dunn MD [address] [place] [address] PCP - General Family Medicine 03/16/21 documented as of this encounter
--- OUTSIDE RECORDS SUMMARY | 2023-05-10 19:58 | External Medical Summary ---
Author Name Unknown Address Unknown Organization K01:[facility] [address] [place] [address] Laboratory Report Ordering Provider Test Date Status SARA DILLON 08/25/2021 14:02:42 Final Observation Date Value Abnormality Reference (Units ) Status Bacteria identified in Unspecified specimen by Culture 08/25/2021 14:02:42 [id number]^STAPHY LOCOCCUS AUREUS MRSA Abnormal Final Performing Location [facility] [address] [place] [address] Ordering Provider Test Date Status SARA DILLON 08/25/2021 14:02:42 Final Observation Date Value Abnormality Reference (Units ) Status Nitrofurantoin susceptibility 08/25/2021 14:02:42 32 Susceptible Final Oxacillinsusceptibility 08/25/2021 14:02:42 >=4 Resistant Final Performing Location [facility] - [address] [place] [address]
--- OUTSIDE RECORDS SUMMARY | 2023-05-10 19:58 | External Medical Summary | Summary of Care ---
Author Name Unknown Organization [place] [address] Care Team Providers Care Fan Runner Name Role Phone Vanita Dunn MD Primary Care Provid er Reason for Visit * Reason Comments Acute Pt being seen for po ssibe UTI, has symptoms of blood in urine and cramps and began a week and a half ago and came back bad. Had been on abx IN PAST and now worse. Has some ear pain on inside and wants them checked. Encounter Details Date Type Department Care Team Description 08/25/2021 Office Visit Family Practice [facility] [address] [facility] [place] [address] Torrie Arciniega PA-C [address] [facility] [place] [address] Gross hematuria*; Hyperammonemia (HCC) Allergies Active Allergy Reactions Severity Noted Date Comments Adhesive Tape Itching 04/29/2020 Penicillins Rash 02/12/2008 Perflutren Protein A Microsph 2019 Definity-lower back pain documented as of this encounter (statuses as of 08/25/2021) Medications Medication Sig Dispensed Refills Start Date [...] 120 Vial 11 10/02/2019 Active nystatin (NYSTOP) 571118 UNIT/GM powder Apply topically to affected area [...] 60 Each 3 07/27/2020 Active Dexcom G6 Securities Underwriter Device Use as directed. To test [...] Strip 3 10/29/2020 Active OneTouch Delica Plus [id number] TESTING once daily 100 Each 3 10/29/2020 [...] than 7.0% ([facility]) Inject one pen (4.5 mg) under the [...] TIMES DAILY. 400 Each 3 08/23/2021 Active Nitrofurantoin Monohyd Macro 100 MG Oral Capsule (Macrobid)Indication s:Gross hematuria Take 1 Capsule by mouth 2 times a day for 7 days. With food until gone 14 Capsule 0 08/25/2021 Active documented as of this encounter (statuses as of 08/25/2021) Active Problems Problem Noted Date Food insecurity [...] as of this encounter (statuses as of 08/25/2021) Resolved Problems Problem Noted Date Resolved Date [...] failure 04/08/2019 04/18/2019 Oxygen dependent 04/08/2019 04/18/2019 detention resident 04/08/2019 05/02/2019 Fall 04/04/2019 05/05/2020 Sprain [...] 05/07/2012 07/02/2014 Diverticulosis of colon 05/02/2012 02/14/20 Internal hemorrhoids [...] pain 01/24/2012 01/17/2017 Genetic Sleep Disorder Research Other*[id number] 05/13/2011 04/07/2016 Obstructive sleep apnea 01/18/2011 12/27/19 [...] as of this encounter (statuses as of 08/25/2021) Immunizations Name Administration Dates Next Due COVID-19 [...] Reading Time Taken Comments Blood Pressure 100/60 08/25/2021 1:49 PM EST Pulse 67 08/25/2021 1:49 PM EST Temperature 36.5 C (97.7 F) 08/25/2021 1:49 PM ES T Respiratory Rate 20 08/25/2021 1:49 PM EST Oxygen Saturation 97% 08/25/2021 1:49 PM EST Inhaled Oxygen Concentration - [...] as of this encounter Progress Notes * Torrie Arciniega PA-C - 08/25/2021 2:34 PM EST HPI: Shaina Bustos is a 66 year old female who presents to clinic accompanied by her home health aide, Torrie, for eval of gross hematuria. Had urinary tract infection and the emergency department in mid July. Treated with Bactrim. Notes symptoms resolved. About 1 week ago had some mild gross hematuria. Seem to go away on its own. Has been back over the last 2 days and is much worse. Now urinating mostly blood. Patient notes some abdominal discomfort, but no fevers, chills, new back or flank pain. No nausea or vomiting. Was recently in the ED on 08/09/2021 for confusion. Found to have high ammonia level in the 130s (highest over the last year was 95). Started on lactulose. Having soft bowel movements regular. No diarrhea. Seems to be doing better overall. ROS: See HPI for positives and negatives. Patient denies additional complaints. PAST MEDICAL HISTORY: Patient Active Problem List Diagnosis Code Venous insufficiency I87.2 Spinal stenosis of lumbar region without neurogenic claudication M48.061 Cerebral palsy (HCC) G80.9 HTN, goal below 140/90 I10 Chronic rhinitis J31.0 NG (nonalcoholic steatohepatitis) K75.81 Hyperglycemia R73.9 Constipation K59.00 Venous stasis dermatitis of both lower extremities I87.2 DDD (degenerative disc disease), lumbar M51.36 Moderate persistent asthma without complication J45.40 Primary osteoarthritis of right knee M17.11 Lymphedema I89.0 Type 2 diabetes mellitus with hemoglobin A1c goal of less than 7.0% (HCC) E11.9 Vitamin D deficiency E55.9 Restrictive lung disease J98.4 Obesity, morbid (more than 100 lbs over ideal weight or BMI > 40) ([facility]) E66.01 Dyslipidemia, goal LDL below 70 E78.5 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 R39.81 Atypical chest pain R07.89 Acquired hypothyroidism E03.9 Chronic pain syndrome G89.4 MEDICATION USE AGREEMENT [id number] Cirrhosis of liver (HCC) K74.60 THAD on CPAP G47.33, Z99.89 Wheelchair dependent Z99.3 Pancytopenia (HCC) D61.818 Ambulatory dysfunction R26.2 DM type 2 with diabetic peripheral neuropathy (HCC) E11.42 Insomnia G47.00 Recurrent major depressive disorder, in partial remission ([facility]) F33.41 Impaired mobility and ADLs Z74.09, Z78.9 Generalized weakness R53.1 Gastroesophageal reflux disease K21.9 History of Achilles tendon repair Z98.890 Anemia D64.9 Fibromyalgia M79.7 Achilles tendinitis, right leg M76.61 Thrombocytopenia ([facility]) D69.6 Iron deficiency anemia due to chronic blood loss D50.0 Splenomegaly R16.1 Esophagitis K20.90 Esophageal varices ([facility]) I85.00 Uncontrolled type 2 diabetes mellitus with hyperglycemia ([facility]) E11.65 Cardiomegaly I51.7 SOB (shortness of breath) R06.02 Melena K92.1 Vancomycin resistant enterococcus culture positive Z22.39 Urinary catheter dysfunction ([facility]) T83.018A Cyst of pancreas K86.2 Calculus of kidney N20.0 Acute on chronic heart failure with preserved ejection fraction (HFpEF) ([facility]) I50.33 Anginal chest pain at rest ([facility]) I20.8 Portal hypertensive gastropathy ([facility]) K76.6, K31.89 Lactic acidosis E87.2 Food insecurity Z59.41 Past Surgical History: Procedure Laterality Date BONE DEBRIDEMENT, FIRST 20 CM2 Right 04/16/2020 DEBRIDEMENT SKIN SUBCUTANEOUS TISSUE MUSCLE AND BONE performed by Josh Vazquez MD at [facility] DELIVERY 04/20/1982 COLONOSCOPY 04/21/2009 repeat in 10 years COLONOSCOPY, DIAGNOSTIC (RECTUM) 10/04/2016 normal bx, repeat 10 yrs/[facility] COLONOSCOPY, DIAGNOSTIC (RECTUM) N/A 06/03/2020 internal hemorrhoids/biopsies show adenomatous polyps/recall 5 years/COLONOSCOPY FLEXIBLE PROXIMAL DIAGNOSTIC performed by Janis Hatch DO at [facility] COLONOSCOPY, DIAGNOSTIC (RECTUM) 03/17/2020 poor prep / [facility] DENTAL SURGERY PROCEDURE NEC wisdom teeth x 4 DILATION AND CURETTAGE (D&C) EGD, FLEXIBLE, DIAGNOSTIC 10/04/2016 gastritis/[facility] EGD, FLEXIBLE, DIAGNOSTIC 01/11/2018 eso varices, retained food, repeat 1 yr/[facility] EGD, FLEXIBLE, DIAGNOSTIC N/A 06/03/2020 severe erosive esophagitis/non-bleeding grade II esophageal varices/gastritis/biopsies show inflammatory changes/repeat 3-4 months/ESOPHAGOGASTRODUODENOSCOPY (EGD), FLEXIBLE, TRANSORAL, DIAGNOSTIC per formed by Janis Hatch DO at OR [facility] EGD, FLEXIBLE, DIAGNOSTIC 11/27/2019 eso varices, portal hypertensive gastropathy, gastritis / [facility] EGD, FLEXIBLE, DIAGNOSTIC N/A 08/05/2020 large amount of food in stomach/repeat 1.5 years/ESOPHAGOGASTRODUODENOSCOPY (EGD), FLEXIBLE, TRANSORAL, DIAGNOSTIC performed by Janis Hatch DO at OR [facility] EGD, FLEXIBLE, DIAGNOSTIC N/A 03/10/2021 ESOPHAGOGASTRODUODENOSCOPY (EGD), FLEXIBLE, TRANSORAL, DIAGNOSTIC performed by Kris Blankenship MD at [facility] 10/05/2020 PELVIS/HIP JOINT SURGERY NEC teenager aid in walking REPAIR/GRAFT ACHILLES TENDON age 40 aid in walking Review of patient's allergies indicates: Allergen Reactions [...] for Wheezing. 120 Vial 11 nystatin (NYSTOP) 293295 UNIT/GM powder Apply topically to affected area [...] to right great toe 50 g 0 Dexcom G6 Securities Underwriter Device Use as directed. To test [...] daily 100 Strip 3 OneTouch Delica Plus [id number] TESTING once daily 100 Each 3 Cinnamon 500 MG Oral Capsule Take [...] (5 mL) of heparin. 1 Each N/A Atorvastatin Calcium 80 MG Oral Tablet (Lipitor) [...] under skin at bedtime 45 mL 3 traZODone HCl 50 MG Oral Tablet (Desyrel) [...] Tablet by mouth daily. 90 Tablet 2 traMADol HCl 50 MG Oral Tablet (Ultram) Take 1 Tablet by mouth 2 times a day as needed for Pain, Severe. 20 Tablet 0 Bisacodyl 5 MG Oral Tablet Delayed Release [...] INSULIN FOUR TIMES DAILY. 400 Each 3 Nitrofurantoin Monohyd Macro 100 MG Oral Capsule (Macrobid) Take 1 Capsule by mouth 2 times a day for 7 days. With food until gone 14 Capsule 0 Ipratropium-Albuterol 0.5-2.5 (3) MG/3ML Inhalation Solution (DUONEB) Inhale 3 mL via nebulizer4 times a day. (Patient taking differently: Inhale 3 mL via nebulizer 4 times a day as needed for Shortness of Breath.) 3 mL 10 Fluticasone-Salmeterol 250-50 MCG/DOSE Inhalation Aerosol Powder Breath Activated (Advair Diskus) Inhale 1 Puff by mouth 2 times a day. 60 Each 3 Cyclobenzaprine HCl 10 MG Oral Tablet (Flexeril) TAKE 1 TABLET ONCE DAILY AT BEDTIME 30 Tab 0 Gabapentin 300 MG Oral Capsule (Neurontin) TAKE 1 CAPSULE BY MOUTH EVERY MORNING, 1 CAPSULE MIDDAY AND 2 CAPSULES IN THE EVENING. May take extra dose am and mid day if needed for pain - total of 6 a day max 360 Cap 1 No current facility-administered medications for this visit. Nursing Notes: Dulce Carrizales LPN 08/25/21 1352 Signed Chief Complaint Patient presents with Acute Pt being seen for possibe UTI, has symptoms of blood in urine and cramps and began a week and a half ago and came back bad. Had been on abx IN PAST and now worse. Has some ear pain on inside and wants them checked. EXAM: BP 100/60 | Pulse 67 | Temp 36.5 C (97.7 F) (Tympanic) | Resp 20 | SpO2 97% General: Patient is a 66-year-old female who is awake alert and oriented x3. Patient is in no acutedistress. Skin: No rashes. HEENT: Head is atraumatic, normocephalic. PERRLA. Sclerae anicteric. Mask present. Neck is supple. Cardiovascular: Regular rate and rhythm. S1 and S-2 appreciated. No murmurs. Lungs: Clear to auscultation bilaterally. No wheezes, rales, rhonchi. Abdomen: Soft, nondistended. Minimal suprapubic tenderness Extremities: Well perfused. No peripheral edema. Neuro: No focal deficits. Psych: Appropriate mood and affect. ASSESSMENT/PLAN Gross hematuria (Primary) - URINALYSIS, POINT OF CARE (ENTER/EDIT) - CULTURE, URINE, QUANTITATIVE - Nitrofurantoin Monohyd Macro 100 MG Oral Capsule (Macrobid); Take 1 Capsule by mouth 2 times a day for 7 days. With food until gone Urinalysis consistent with UTI. Had recent course of Bactrim. Will treat with Macrobid. Hyperammonemia (HCC) - AMMONIA; Future; Expected date: 08/25/2021 - COMPREHENSIVE METABOLIC PANEL; Future; Expected date: 08/25/2021 Follow-up with PCP for routine care or sooner p.r.n. There are no Patient Instructions on file for this visit. Torrie Arciniega PA-C [facility] [address] [facility] [address] This chart was completed in part utilizing [employer] Speech Voice Recognition Software. Grammatical errors, random [...] documented in this encounter Nursing Notes * Dulce Carrizales LPN - 08/25/2021 1:46 PM EST Chief Complaint Patient presents with Acute Pt being seen for possibe UTI, has symptoms of blood in urine and cramps and began a week and a half ago and came back bad. Had been on abx IN PAST and now worse. Has some ear pain on inside and wants them checked. documented in this encounter Plan of Treatment Upcoming Encounters Date Type Specialty Care Team Description 09/08/2021 Immunization/Injection Hematology Oncolog y Nurse, Med [address] [facility] [address] 09/09/2021 Imaging Radiology 09/14/2021 Office Visit [facility] [place] [address] 09/15/2021 Office Visit Pharmacy [place], [place] [id number] [place] [address] 09/16/2021 Telemedicine Gastroenterology Katherine Moore, RDN [address] [place] [address] 09/23/2021 Office Visit Cardiology Quyen Canseco CRNP [address] [place] [address] 10/22/2021 Office Visit Sleep Disorders Love Francisco, DO [address] [place] [address] 12/22/2021 Office Visit Endocrinology Alberta Duque PA-C [address] [place], [place] [id number] 01/04/2022 Office Visit Hematology Oncology Tono Sanchez MD [address] [place] [address] 03/24/2022 Office Visit Pulmonary Reynaldo Marqeuz MD [address] [place] [address] 06/24/2022 Office Visit Sleep Disorders Love Francisco, [address] [place] [address] Pending Results Name Type Priority Associated Diagnoses Date /Time CULTURE, URINE, QUANTITATIVE Lab Routine Gross hematuria 08/25/2021 2:02 PM EST Scheduled Orders Name Type Priority Associated Diagnoses Orde r Schedule AMMONIA Lab Routine Hyperammonemia (HCC) Expected: 08/25/2021, Expires: 08/25/2022 COMPREHENSIVE METABOLIC PANEL Lab Routine Hyperammonemia (HCC) Expected: 08/25/2021 (Approximate), Expires: 08/25/2022 Scheduled Procedures Name Priority Associated Diagnoses Date/Ti [...] this encounter Implants Implanted Type Area Field Contact Person Device Identifier Shelf Expiration Date Model / Serial / Lot Microtech Sure Clip Implanted:Qty: 2 on 06/03/2020 by Hatch, Marten B, DO at OR [facility] Clip N/A: Colon 04/21/2022 [id number]-F-[id number] 35-C-R / / [id number] documented as of this encounter Procedures Procedure Name Priority Date/Time Associated Diagnosis Comments URINALYSIS, POINT OF CARE (ENTER/EDIT) Routine 08/25/2021 Gross hematuria documented in this encounter Results * URINALYSIS, POINT OF CARE (ENTER/EDIT) (08/25/2021) Color, Urine Red Yellow or Light Yellow Clarity, Urine Cloudy Clear Glucose, Urine Negative Negative mg/dL Bilirubin, Urine Small Negative Ketone, Urine Negative Negative mg/dL Specific [place], Urine 1.030 1.003 - 1.030 Blood, Urine Large Negative pH, Urine 6.5 5.0 - 7.5 units Protein, Urine 100 Negative mg/dL Urobilinogen, Urine 1.0 0.2 - 1.0 mg/dL Nitrite, Urine Positive Negative Esterase, Urine Trace Negative Specimen Urine documented in this encounter Visit Diagnoses Diagnosis Gross hematuria- Primary Hyperammonemia (HCC) Disorders of urea cycle metabolism documented in this encounter Advance Directives Documents on File Type Date Recorded Patient Date Night Sitter 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 LIVING WILL AND HEALTH CARE POA Power Medical Program Specialist 04/29/2021 12:00 AM [facility] POA Advanced Directive 04/01/2021 1:14 PM [...] Syed Bustos Spouse Emergency Contact Care Teams Fan Runner Relationship Specialty Start Date End Date Vanita Dunn MD [address], [place] [phone] PCP - General Family Medicine 03/16/21 documented as of this encounter"
--- OUTSIDE RECORDS SUMMARY | 2023-05-10 19:58 | External Medical Summary | Summary of Care ---
Author Name Unknown Organization [place] [address] Care Team Providers Care Scrap Bunch Maker Name Role Phone Kojo Hinojosa MD Primary Care Provid er Reason for Visit * Reason Comments eRx-Medication Refill Encounter Details Date Type Department Care Team Description 08/28/[address] [facility] [address] [place] [address] Kojo Hinojosa MD [address] [place] [address] Type 2 diabetes mellitus with hemoglobin A1c goal of less than 7.0% ([facility])* Allergies Active Allergy Reactions Severity Noted Date Comments Adhesive Tape Itching 04/29/2020 Penicillins Rash 02/12/2008 Perflutren Protein A Microsph 2019 Definity-lower back pain documented as of this encounter (statuses as of 08/30/2021) Medications Medication Sig Dispensed Refills Start Date End Date Status CENTRUM SILVER PO TABS Take 1 Tab by mouth daily. 1 Tab 0 2 Active vitamin c (ASCORBIC ACID) 500 MG Tablet Take 500 mg by mouth daily. 0 Active albuterol sulfate (PROVENTIL) (2.5 MG/3ML) 0.083% nebulizer solutionIndications :Pulmonary vascular congestion Inhale 1 Vial via nebulizer every 6 hours as needed for Wheezing. 120 Vial 11 0 Active nystatin (NYSTOP) 259818 UNIT/GM powder Apply topically to affected area 3 times a day. 60 g 1 0 Active Albuterol Sulfate (ALBUTEROL HFA) 108 (90 BASE) MCG/ACT inhalerIndications: Intermittent asthma with reliever use up to twice per week without complication Inhale 2 Puffs by mouth every 4 hours as needed for Cough or Wheezing. With spacer 16 g 1 0 Active Blood Glucose Monitoring Suppl (BLOOD GLUCOSE MONITOR SYSTEM) w/Device KIT Use to test once per day. 1 Kit 0 0 Active silver sulfadiazine (SILVADENE) 1 % cream Apply topically to affected area daily. Apply to right great toe 50 g 0 0 Active Ipratropium-Albuter ol 0.5-2.5 (3) MG/3ML [...] 60 Each 3 0 Active Dexcom G6 Patient Care Device Use as directed. To test blood [...] TO ACCESSING. 30 g 3 1 Active Just [employer] In Vitro Strip (Glucose Blood) TESTING once daily 100 Strip 3 1 Active OneTouch Delica Plus [id number] TESTING once daily 100 Each 3 1 Active Cinnamon 500 MG Oral Capsule Take [...] of heparin. 1 Each 0 1 Active Cyclobenzaprine HCl 10 MG Oral Tablet (Flexeril) TAKE 1 TABLET ONCE DAILY AT BEDTIME 30 Tab 0 1 Active Potassium Chloride Selena ER 10 MEQ [...] of less than 7.0% ([facility]) Inject one pen (4.5 mg) under the [...] other meds) 35 Tab 11 1 Active Tamsulosin HCl 0.4 MG Oral Capsule (Flomax)Indications :Acute bilateral low back pain without sciatica,Bilateral renal colic Take 1 Cap by mouth daily. 30 Cap 0 1 Active Linzess 290 MCG Oral Capsule (linaCLOtide) TAKE 1 CAPSULE BY MOUTH ONCE DAILY BEFORE BREAKFAST 90 Capsule 1 1 Active Senna-Docusate Sodium 8.6-50 MG Oral TabletIndications:C onstipation, unspecified constipation type Take 1 Tablet by mouth daily. 90 Tablet 2 1 Active traMADol HCl 50 MG Oral Tablet (Ultram) Take 1 Tablet by mouth 2 times a day as needed for Pain, Severe. 20 Tablet 0 1 Active Bisacodyl 5 MG Oral Tablet Delayed Release (Dulcolax)Indicatio ns:Drug-induced constipation Take 2 Tablets by mouth daily as needed for Constipation. Do not use for more than one week. Do not cut, crush or chew 40 Tablet 1 1 Active Escitalopram Oxalate 20 MG [...] TIMES DAILY. 400 Each 3 1 Active Nitrofurantoin Monohyd Macro 100 MG Oral Capsule (Macrobid)Indicatio ns:Gross hematuria Take 1 Capsule by mouth 2 times a day for 7 days. With food until gone 14 Capsule 0 1 09/01/20 21 Active Isosorbide Mononitrate ER 30 MG Oral [...] AT BEDTIME 30 Tablet 5 1 Active Atorvastatin Calcium 80 MG Oral Tablet (Lipitor) Take 1 Tab by mouth at bedtime. 30 Tab 5 1 08/30/20 21 Discontinued Aspirin 81 MG Oral Tablet Chewable Take 1 Tab by mouth daily. 30 Tab 5 1 08/30/20 21 Discontinued Isosorbide Mononitrate ER 30 MG Oral Tablet Extended Release 24 Hour (Imdur) Take 1 Tab by mouth daily. 30 Tab 5 1 08/30/20 21 Discontinued documented as of this encounter (statuses as of 08/30/2021) Active Problems Problem Noted Date Food insecurity [...] weakness 04/04/2019 Pancytopenia 02/21/2019 Wheelchair dependent 12/21/2018 THDA on CPAP 12/26/2017 Cirrhosis of liver 11/20/2017 [...] as of this encounter (statuses as of 08/30/2021) Resolved Problems Problem Noted Date Resolved Date [...] pain 01/24/2012 01/17/2017 Genetic Sleep Disorder Research Other*[id number] 05/13/2011 04/07/2016 Obstructive sleep apnea 01/18/2011 12/27/19 [...] as of this encounter (statuses as of 08/30/2021) Immunizations Name Administration Dates Next Due COVID-19 [...] Notes * Telephone Encounter - Radha Turner formerly [facility] - 08/30/2021 7:32 AM EST Signed Prescriptions: Disp Refills Isosorbide Mononitrate ER 30 MG Oral Table*30 Tab*5 Sig: TAKE 1 TABLET BY MOUTH ONCE DAILYAuthorizing Provider: KOJO HINOJOSA User: RADHA TURNER Aspirin 81 MG Oral Tablet Chewable 30 Tab*5 Sig: CHEW AND SWALLOW 1 TABLET BY MOUTH ONCE DAILYAuthorizing Provider: KOJO HINOJOSA User: RADHA TURNER Atorvastatin Calcium 80 MG Oral Tablet (Li*30 Tab*5 Sig: TAKE 1 TABLET BY MOUTH AT BEDTIMEAuthorizing Provider: KOJO HINOJOSA User: RADHA TURNER * Telephone Encounter - Radha Turner RPh - 08/30/2021 7:29 AM EST Provided 30 days supply with 5 refill(s) until next routine labs will approximately be drawn. Per refill protocol patient should have lipid on file within past year. Lab work ordered (AMP report and protocol medications checked). Patient can complete labs with next routine lab work. Thank you, Radha Turner, PharmD. Clinical Pharmacist Pharmacy Refill Call Center 08/30/2021, 7:32 AM documented in this encounter Plan of Treatment Upcoming Encounters Date Type Specialty Care Team Description 09/08/2021 Immunization/Injection Hematology Oncolog y Nurse, Med 4 [address] [facility] [place] [address] 09/09/2021 Imaging Radiology 09/14/2021 Office Visit Gastroenterology Lyssa Stout CRNP 132 [facility] [place] [address] 09/15/2021 Office Visit Pharmacy [facility] [address] [place] [address] 09/16/2021 Telemedicine Gastroenterology Katherine Moore, RDN [address] [place], [place] [phone] 09/23/2021 Office Visit Cardiology Quyen Canseco CRNP [address] [facility] [place] [address] 10/22/2021 Office Visit Sleep Disorders Love Francisco DO [address] [facility] [place] [address] 12/22/2021 Office Visit Endocrinology Alberta Duque PA-C [address] [place], [place] [phone] 01/04/2022 Office Visit Hematology Oncology Tono Sanchez MD [address] [place] [address] 03/24/2022 Office Visit Pulmonary Reynaldo Marquez MD [address] [place] [address] 06/24/2022 Office Visit Sleep Disorders Love Francisco, DO [address] [facility] [place] [address] Scheduled Orders Name Type Priority Associated Diagnoses Orde r Schedule LIPID PANEL WITH DIRECT LDL IF TG IS HIGH Lab Routine Type 2 diabetes mellitus with hemoglobin A1c goal of less than 7.0% (HCC) Expected: 08/30/2021 (Approximate), Expires: 08/30/2022 Scheduled Procedures Name Priority Associated Diagnoses [...] of this encounter Implants Implanted Type Area Figure Skater Device Identifier Shelf Expiration Date Model / Serial / Lot [employer] Sure Clip Implanted:Qty: 2 on 06/03/2020 by Janis Hatch DO at OR [facility] Clip N/A: Colon 04/21/2022 [facility]-F-[id number] 35-C-R / / [id number] documented as of this encounter Visit Diagnoses Diagnosis Type 2 diabetes mellitus with hemoglobin A1c goal of less than 7.0% (HCC)- Primary documented in this encounter Advance Directives Documents on File Type Date Recorded Patient Briquette Machine Operator Expl 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 AND HEALTH CARE POA Power of Financial Services Counselor 04/29/2021 12:00 AM [facility] GLOBAL CHIEF EXPERIENCE OFFICER HEALTH CARE POA Advanced Directive 04/01/2021 [...] Syed Bustos Spouse Emergency Contact Care Teams Scrap Bunch Maker Relationship Specialty Start Date End Date Kojo Hinojosa MD [address], [place] [phone] PCP - General Family Medicine 03/16/21 documented as of this encounter
--- OUTSIDE RECORDS SUMMARY | 2023-05-10 19:59 | External Medical Summary | Summary of Care ---
Author Name Unknown Organization [place] [address] Care Team Providers Care Retail Account Executive Name Role Phone Vanita Dunn MD Primary Care Provid er Reason for Visit * Reason Comments eRx-Medication Refill Encounter Details Date Type Department Care Team Description 08/23/2021 Refill Pharmacy, [address] [address] Maikel Caceres, [address] [place] [address] Type 2 diabetes mellitus with hemoglobin A1c goal of less than 7.0% ([facility]) Allergies Active Allergy Reactions Severity Noted Date Comments Adhesive Tape Itching 04/29/2020 Penicillins Rash 02/12/2008 Perflutren Protein A Microsph 2019 Definity-lower back pain documented as of this encounter (statuses as of 08/23/2021) Medications Medication Sig Dispensed Refills Start Date [...] 120 Vial 11 0 Active nystatin (NYSTOP) 048866 UNIT/GM powder Apply topically to affected area [...] 60 Each 3 0 Active Dexcom G6 Private Equity Associate Device Use as directed. To test [...] TO ACCESSING. 30 g 3 1 Active Social Collective[employer] In Vitro Strip (Glucose Blood) TESTING once daily 100 Strip 3 1 Active OneTouch Delica Plus [id number] TESTING once daily 100 Each 3 1 [...] AT BEDTIME 30 Tab 0 1 Active Atorvastatin Calcium 80 MG Oral Tablet (Lipitor) Take 1 Tab by mouth at bedtime. 30 Tab 5 1 Active Aspirin 81 MG Oral Tablet Chewable Take 1 Tab by mouth daily. 30 Tab 5 1 Active Isosorbide Mononitrate ER 30 MG Oral Tablet Extended Release 24 Hour (Imdur) Take 1 Tab by mouth daily. 30 Tab 5 1 Active Potassium Chloride Selena ER 10 [...] TIMES DAILY. 400 Each 3 1 Active BD Pen Needle Mini U/F 31G X 5 MM (Insulin Pen Needle)Indications: Type 2 diabetes mellitus with hemoglobin A1c goal of less than 7.0% (HCC) Use to inject insulin four times daily; E11.42 400 Each 3 1 08/23/20 21 Discontinued documented as of this encounter (statuses as of 08/23/2021) Active Problems Problem Noted Date Food insecurity 04/19/2021 Overview: Per [facility] Protocol Lactic acidosis 03/22/2021 Portal hypertensive [...] as of this encounter (statuses as of 08/23/2021) Resolved Problems Problem Noted Date Resolved Date [...] failure 04/08/2019 04/18/2019 Oxygen dependent 04/08/2019 04/18/2019 skilled nursing resident 04/08/2019 05/02/2019 Fall 04/04/2019 05/05/2020 Sprain [...] pain 01/24/2012 01/17/2017 Genetic Sleep Disorder Research Other*[id number] 05/13/2011 04/07/2016 Obstructive sleep apnea 01/18/2011 12/27/19 [...] as of this encounter (statuses as of 08/23/2021) Immunizations Name Administration Dates Next Due COVID-19 [...] encounter Miscellaneous Notes * Telephone Encounter - Stefanie Thorpe [facility] - 08/23/2021 7:54 AM EST Signed Prescriptions: Disp Refills BD Pen Needle Mini U/F 31G X 5 MM (Insulin*400 Ea*3 Sig: USE TOINJECT INSULIN FOUR TIMES DAILY.Authorizing Provider: MAIKEL CACERES User: JAXON THORPE ING documented in this encounter Plan of Treatment Upcoming Encounters Date Type Specialty Care Team Description 09/08/2021 Immunization/Injection Hematology Oncolog y Nurse, Med 4 [address] [place] [place] [address] 09/09/2021 Imaging Radiology 09/14/2021 Office Visit Gastroenterology Lyssa Stout CRNP 132 [facility] [place] [address] 09/15/2021 Office Visit Pharmacy [address] [address] 09/16/2021 Telemedicine Gastroenterology Katherine Moore RDN [address] [place] [address] 10/22/2021 Office Visit Sleep Disorders Love Francisco DO [address] [facility] [place] [address] 12/22/2021 Office Visit Endocrinology Alberta Duque PA-C [address] [place] [address] 01/04/2022 Office Visit Hematology Oncology Tono Sanchez MD 200 [place] [address] 03/24/2022 Office Visit Pulmonary Reynaldo Marquez MD [address] [place] [address] 06/24/2022 Office Visit Sleep Disorders Love Francisco DO [address] [facility] [place] [address] Scheduled Procedures Name Priority Associated Diagnoses Date/Ti [...] of this encounter Implants Implanted Type Area It Generalist Device Identifier Shelf Expiration Date Model / Serial / Lot Microtech Sure Clip Implanted:Qty: 2 on 06/03/2020 by Janis Hatch DO at OR [facility] Clip N/A: Colon 04/21/2022 ROCC-F-26-2 35-C-R / / [id number] documented as of this encounter Visit Diagnoses Diagnosis Type 2 diabetes mellitus with hemoglobin A1c goal of less than 7.0% (HCC) documented in this encounter Advance Directives Documents on File Type Date Recorded Patient Computer Forensics Technician 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 WILL AND HEALTH CARE POA Power of Ladle Filler 04/29/2021 12:00 AM TOM R OF [facility] POA Advanced Directive 04/01/2021 1:14 [...] Agents on File Name Relationship Healthcare Agent [facility] p Communication Syed Bustos Spouse Emergency Contact Care Teams Retail Account Executive Relationship Specialty Start Date End Date Vanita Dunn MD [address] [place], [place] [id number] PCP - General Family Medicine 03/16/21 documented as of this encounter
--- OUTSIDE RECORDS SUMMARY | 2023-05-10 19:59 | External Medical Summary | Summary of Care ---
Author Name Unknown Organization [place] [address] Care Team Providers Care Talent Development Specialist Name Role Phone Vanita Dunn MD Primary Care Provid er Reason for Visit * Reason Onset Date Comments Test Results 08/23/2021 allergies Encounter Details Date Type Department Care Team Description 08/23/2021 Telephone Pulmonary Medicine Suzie Barrera [address] [place] [phone] Reynaldo Marquez MD [address] [place] [address] Test Results (allergies) Allergies Active Allergy Reactions [...] 120 Vial 11 10/02/2019 Active nystatin (NYSTOP) 815014 UNIT/GM powder Apply topically to affected area [...] 60 Each 3 07/27/2020 Active Dexcom G6 Parts Sales Representative Device Use as directed. To [...] Strip 3 10/29/2020 Active OneTouch Delica Plus [id number] TESTING once daily 100 Each 3 10/29/2020 [...] failure 04/08/2019 04/18/2019 Oxygen dependent 04/08/2019 04/18/2019 prison resident 04/08/2019 05/02/2019 Fall 04/04/2019 05/05/2020 Sprain [...] pain 01/24/2012 01/17/2017 Genetic Sleep Disorder Research Other*[id number] 05/13/2011 04/07/2016 Obstructive sleep apnea 01/18/2011 12/27/19 [...] Visit Family Medicine Torrie Arciniega PA-C 132 [facility] [place] [address] 09/08/2021 Immunization/Injection Hematology Oncolog y Nurse, Med 4 [address] [facility] [place] [address] 09/09/2021 Imaging Radiology 09/14/2021 Office Visit Gastroenterology Lyssa Stout CRNP [address] [facility] [place] [address] 09/15/2021 Office Visit Pharmacy [address] [address] 09/16/2021 Telemedicine Gastroenterology Katherine Moore RDN [address] [place], [place] [phone] 10/22/2021 Office Visit Sleep Disorders Love Francisco DO [address] [place] [address] 12/22/2021 Office Visit Endocrinology Alberta Duque PA-C [address] [place] [address] 01/04/2022 Office Visit Hematology Oncology Tono Sanchez MD 200 [facility] [place] [address] 03/24/2022 Office Visit Pulmonary Reynaldo Marquez MD [address] [place] [id number] 06/24/2022 Office Visit Sleep Disorders Love Francisco DO [address] [place] [address] Scheduled Procedures Name Priority Associated Diagnoses Date/Ti [...] of this encounter Implants Implanted Type Area Adaptive Physical Education Specialist Device Identifier Shelf Expiration Date Model / Serial / Lot Microtech Sure Clip Implanted:Qty: 2 on 06/03/2020 by Janis Hatch DO at OR [facility] Clip N/A: Colon 04/21/2022 ROCC-F-26-2 35-C-R / / [id number] documented as of this encounter Advance Directives Documents on File Type Date Recorded Patient Coroner Technician 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 WILL AND HEALTH CARE POA Power of Proration Clerk 04/29/2021 12:00 AM OTM R OF COMMUNICATIONS PROGRAMMER HEALTH CARE POA Advanced Directive 04/01/2021 [...] Bustos Spouse Emergency Contact Care Teams Talent Development Specialist Relationship Specialty Start Date End Date Vanita Dunn MD [address] [place] [address] PCP - General Family Medicine 03/16/21 documented as of this encounter
--- OUTSIDE RECORDS SUMMARY | 2023-05-10 20:00 | External Medical Summary | Summary of Care ---
Author Name Unknown Organization [place] [address] Care Team Providers Care Vocational Services Specialist Name Role Phone Vanita Dunn MD Primary Care Provid er Reason for Visit * Reason Comments Diabetes Follow-Up Encounter Details Date Type Department Care Team Description 08/19/2021 Office Visit Endocrinology, [facility] [address] [place], [place] [phone] Alberta Duque PA-C [address] [place] [address] Type 2 diabetes mellitus with hemoglobin A1c goal of less than 8.0% ([facility])*; Acquired hypothyroidism Allergies Active Allergy Reactions Severity Noted Date Comments Adhesive Tape Itching 04/29/2020 Penicillins Rash 02/12/2008 Perflutren Protein A Microsph 2019 Definity-lower back pain documented as of this encounter (statuses as of 08/19/2021) Medications Medication Sig Dispensed Refills Start Date [...] 120 Vial 11 10/02/2019 Active nystatin (NYSTOP) 318521 UNIT/GM powder Apply topically to affected area [...] 60 Each 3 07/27/2020 Active Dexcom G6 Esl Instructional Assistant Device Use as directed. To test [...] Strip 3 10/29/2020 Active OneTouch Delica Plus [id number] TESTING once daily 100 Each 3 10/29/2020 Active BD Pen Needle Mini U/F 31G X 5 MM (Insulin Pen Needle)Indications:T ype 2 diabetes mellitus with hemoglobin A1c goal of less than 7.0% (HCC) Use to inject insulin four times daily; E11.42 400 Each 3 12/05/2020 Active Cinnamon 500 MG Oral Capsule Take [...] hemoglobin A1c goal of less than 7.0% ([facility]) Inject one pen (4.5 mg) [...] ONCE DAILY 90 Tablet 1 08/07/2021 Active documented as of this encounter (statuses as of 08/19/2021) Active Problems Problem Noted Date Food insecurity [...] as of this encounter (statuses as of 08/19/2021) Resolved Problems Problem Noted Date Resolved Date [...] failure 04/08/2019 04/18/2019 Oxygen dependent 04/08/2019 04/18/2019 [facility] resident 04/08/2019 05/02/2019 Fall 04/04/2019 05/05/2020 Sprain [...] pain 01/24/2012 01/17/2017 Genetic Sleep Disorder Research Other*[id number] 05/13/2011 04/07/2016 Obstructive sleep apnea 01/18/2011 12/27/19 [...] as of this encounter (statuses as of 08/19/2021) Immunizations Name Administration Dates Next Due COVID-19 [...] Sign Reading Time Taken Comments Blood Pressure - - Pulse 70 08/19/2021 3:12 PM EST Temperature 36.3 C (97.3 F) 08/19/2021 3:12 PM ES T Respiratory Rate - - Oxygen Saturation - - Inhaled Oxygen Concentration - - Weight - - Height 149.9 cm (4' 11.02") 08/19/2021 3:[address] Body Mass Index - - documented in [...] * Patient Instructions* Alberta Duque PA-C - 08/19/2021 3:23 PM EST - blood work to check thyroid function - levothyroxine 175 mcg daily Follow Up: Return in about 4 months (around 12/18/2021) for Diabetes Return. | For: Diabetes Return documented in this encounter Progress Notes * Alberta Duque PA-C - 08/19/2021 3:00 PM EST CC: Diabetes Mellitus Type 2 Follow up HPI: This 66 year old female is seen today in the [facility] for routine follow-up of: diabetes mellitus type 2 Current concerns: -blood sugar control has improved - levothyroxine dose last visit was decreased, no recent labs - overall feeling better Diabetes history: Diagnosed in her early 60's Family history of diabetes: father, and sister Comorbidities cerebral palsy, hypothyroidism, sleep apnea, NG, DLD, HTN At home primary caregiver Last Office Visit: Last Office/Telemedicine Visit: 06/10/2021 Blood sugar monitoring -Dexcom G6 -able to view download Continuous Glucose Monitoring Sensor Interpretation: Dates of Study: 08/04/2021-08/19/2021 Please see the documents related to this report, which contains the graphical representations of the continuous glucose monitoring data on [employer]. This data was reviewed in detail and used to generate this summary report. Time in range :42% , Time above range:48% high, 10 % very high Time below range :0% Nocturnal Glucose Control: Uncontrolled glucose observed by CGMS : yes - Hyperglycemia Post Prandial Glucose Excursions: Uncontrolled glucose observed by CGMS: yes - Hyperglycemia Hypoglycemia Incidence: Uncontrolled glucose observed by CGMS :no Current Regimen: Novolog, Inject 32 units before breakfast, 36units before lunch, and36 units before supper-+ a sliding scale that they have at home Lantus 32 units a day Metformin 500 mg daily Trulicity 4.5mg SQ weekly Hypoglycemia: Denies Diet: - appetite is good Exercise/Activity Level: limited to none ROS: 10 systems reviewed , as per HPI All other were negative. Reviewed PMH , PSH, FH, SH and updated per chart. Exam: Filed Vitals: 08/19/21 1512 Pulse: 70 Temp: 36.3 C (97.3 F) Height: (!) 1.499 m (4' 11.02") Body mass index is 51.27 kg/m. Wt Readings from Last 5 Encounters: 08/03/21 115.2 kg (254 lb) 07/22/21 115.2 kg (254 lb) 07/10/21 127 kg (280 lb) 06/16/21 117.9 kg (260 lb) 06/10/21 117.9 kg (260 lb) Gen: appears well, in NAD HEENT: no conjunctival injection, MMM Resp: normal respiratory pattern, no dyspnea with conversation CV: no cyanosis or edema Skin: no rash MSK: 4 extremities intact, [place] Neuro: awake, alert, appropriate Labs: Recent Labs Units 06/10/21 1445 03/08/21 0340 11/30/20 1132 HEMOGLOBIN A1C - [facility] % 7.4* 8.5* 6.9* No results for input(s): MICROALBUMIN in the last [id number] hours. Recent Labs Units 08/09/21 0000 06/16/21 2100 06/10/21 1445 06/06/21 1746 09/24/20 1716 09/23/20 1436 08/21/20 1635 08/21/20 1635 SODIUM - [facility] mmol/L -- 138 141 139 138 -- < > 142 POTASSIUM - [facility] mmol/L -- 4.8 4.6 4.7 4.0 -- < > 4.1 POTASSIUM-OUTSIDE LAB MMOL/L 4.0 -- -- -- -- -- -- -- CALCIUM - [facility] mg/dL -- 8.9 9.1 9.3 8.7 -- < > 8.9 BUN - [facility] mg/dL -- 17 15 15 10 10 < > 12 CREATININE - [facility] mg/dL -- 0.9 0.8 0.7 0.6 0.6 < > 0.7 CREATININE-OUTSIDE LAB MG/DL 0.80 -- -- -- -- -- -- -- ESTIMATED GLOMERULAR FILTRATION RATE - [facility] -- -- -- -- >60.0 >60.0 -- >60.0 < > = values in this interval not displayed. Recent Labs Units 06/16/21 2100 06/06/21 1746 06/01/21 1709 AST - [facility] U/L 49* 42* 46* ALT - [facility] U/L 29 24 25 Recent Labs Units 02/21/20 1143 LDL CHOLESTEROL (DIRECT MEASURE) - [facility] mg/dL 46 Recent Labs Units 06/10/21 1445 04/05/21 1342 02/04/21 0117 TSH - [facility] uIU/mL 0.02* 0.02* 0.17* Assessment and Plan: 66 year old female presents for routine follow up of diabetes. Most recent A1C was 7.2%. overall feeling better. Recommend continuing current regimen. Discussed traveling with pens so that she can have food coverage when not at home. Both patient and confirmed understanding. Due for updated TSH , last visit dose decreased down to 175 mcg daily. Type 2 diabetes mellitus with hemoglobin A1c goal of less than 8.0% ([facility]) (Primary) - HEMOGLOBIN A1C; Future; Expected date: 08/19/2021 Acquired hypothyroidism - please get updated labs - continue levothyroxine 175 mcg daily - continue current insulin regimen - bring insulin pens with when traveling Follow Up: Return in about 4 months (around 12/18/2021) for Diabetes Return. | For: Diabetes Return I spent a total of 30-39 minutes (exact time 30 mins) on the date of service in preparation, delivery, and documentation of the care provided to Shaina Bsutos excluding any time spent in the performance of separately billed services. Alberta Fletcher Endocrinology [address] [facility] [address] Phone: [phone] Fax: [phone] documented in this encounter Nursing Notes * LETY Iglesias - 08/19/2021 3:00 PM EST Dexcom. Report printed. Patient was instructed to not get up on the exam table/exam chair until directed and assisted by their provider; patient is to remain seated in the chair/ wheelchair/ exam table/ exam chair for fall prevention and safety reasons. Patient is aware to have assistance to step down off exam table/exam chair with personnel. Patient voiced full comprehension of instructions. Patient denies any signs or symptoms of Covid. Renetta Victoria MA Adult Endocrinology documented in this encounter Plan of Treatment Upcoming Encounters Date Type Specialty Care Team Description 09/08/2021 Immunization/Injection Hematology Oncolog y Nurse, Med 4 [address] [place] [address] 09/09/2021 Imaging Radiology 09/14/2021 Office Visit Gastroenterology Lyssa Stout CRNP [address] [facility] [place] [address] 09/15/2021 Office Visit Pharmacy [address] [address] 09/16/2021 Telemedicine Gastroenterology Katherine Moore RDN [address] [place] [address] 10/22/2021 Office Visit Sleep Disorders Love Francisco DO 132 [facility] [place] [address] 12/22/2021 Office Visit Endocrinology Alberta Duque PA-C [address] [place] [address] 01/04/2022 Office Visit Hematology Oncology Tono Sanchez MD 200 [place] [address] 03/24/2022 Office Visit Pulmonary Reynaldo Marquez MD [address] [place] [address] 06/24/2022 Office Visit Sleep Disorders Love Francisco DO 132 [facility] [place] [address] Scheduled Orders Name Type Priority Associated Diagnoses Orde r Schedule HEMOGLOBIN A1C Lab Routine Type 2 diabetes mellitus with hemoglobin A1c goal of less than 8.0% (HCC) Expected: 08/19/2021, Expires: 08/19/2022 Scheduled Procedures Name Priority Associated Diagnoses Date/Ti [...] Additional history exists DIABETES-HGBA1C EVERY 6 MONTHS 12/08/2021 06/10/2021, 03/08/2021, 11/30/2020, Additional history exists DIABETES-FOOT EXAM 04/05/2022 04/05/2021, [...] of this encounter Implants Implanted Type Area Donor Relations Manager Device Identifier Shelf Expiration Date Model / Serial / Lot Microtech Sure Clip Implanted:Qty: 2 on 06/03/2020 by Janis Hatch DO at OR [facility] Clip N/A: Colon 04/21/2022 [facility]-F-26-2 35-C-R / / [id number] documented as of this encounter Visit Diagnoses Diagnosis Type 2 diabetes mellitus with hemoglobin A1c goal of less than 8.0% (HCC)- Primary Acquired hypothyroidism Unspecified hypothyroidism documented in this encounter Advance Directives Documents on File Type Date Recorded Patient Terminal Press Operator Expl 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 AND HEALTH CARE POA Power of Mechanical Development Engineer 04/29/2021 12:00 AM TOM R OF SENIOR NET DEVELOPER ARCHITECT HEALTH CARE POA Advanced Directive 04/01/2021 [...] Bustos Spouse Emergency Contact Care Teams Vocational Services Specialist Relationship Specialty Start Date End Date Vanita Dunn MD [address] [place] [address] PCP - General Family Medicine 03/16/21 documented as of this encounter
--- OUTSIDE RECORDS SUMMARY | 2023-05-10 20:00 | External Medical Summary ---
Author Name Unknown Address Unknown Organization K01:[facility] - [address] [place] [address] Laboratory Report Ordering Provider Test Date Status MAYNOR TOMPKINS 08/19/2021 16:18:59 Final Observation Date Value Abnormality Reference (Units ) Status IgE 08/19/2021 16:18:59 75.4 0.0-87.0 ( kU/L) Final Performing Location [facility] [address] [facility] [address]
--- OUTSIDE RECORDS SUMMARY | 2023-05-10 20:00 | External Medical Summary ---
Author Name Unknown Address Unknown Organization K01:[facility] - [address] [facility] [place] [address] Laboratory Report Ordering Provider Test Date Status MAYNOR TOMPKINS 08/19/2021 16:18:58 Final Observation Date Value Abnormality Reference (Units ) Status February grass IgE 08/19/2021 16:18:58 1.22 <0.35 (kU/L) Final Dustin IgE 08/19/2021 16:18:58 0.36 <0.35 (kU/L) Final Common ragweed [place] (nAmb a) 1 IgE Ab [Units/volume] in Serum 08/19/2021 16:18:58 <0.20 <0.35 (kU/L) Final Pigweed common IgE 08/19/2021 16:18:58 <0.20 <0.35 (kU/L) Final [place] IgE 08/19/2021 16:18:58 <0.20 <0.35 (kU/L) Final Elm IgE 08/19/2021 16:18:58 <0.20 <0.35 (kU/L) Final Dust Mite IgE, farinae 08/19/2021 16:18:58 0.44 <0.35 (kU/L) Final Dust Mite IgE, pteronyssinus 08/19/2021 16:18:58 0.64 <0.35 (kU/L) Final Alternaria IgE 08/19/2021 16:18:58 <0.20 <0.35 (kU/L) Final Cat Epithelium IgE 08/19/2021 16:18:58 <0.20 <0.35 (kU/L) Final Dog Epithelium IgE 08/19/2021 16:18:58 <0.20 <0.35 (kU/L) Final Dog Dander IgE 08/19/2021 16:18:58 <0.20 <0.35 (kU/L) Final Cladosporium IgE 08/19/2021 16:18:58 <0.20 <0.35 (kU/L) Final [place] IgE 08/19/2021 16:18:58 <0.20 <0.35 (kU/L) Final Performing Location [facility] - [address] [facility] [address]
--- OUTSIDE RECORDS SUMMARY | 2023-05-10 20:00 | External Medical Summary | Summary of Care ---
Author Name Unknown Organization [place] [address] Care Team Providers Care Head Of Precision Targeting Name Role Phone Kojo Dunn MD Primary Care Provid er Reason for Visit * Reason Comments eRx-Medication Refill Encounter Details Date Type Department Care Team Description 08/06/2021 Refill [facility] [address] [place] [address] Kojo Dunn MD [address] [place] [address] Recurrent major depressive disorder, in partial remission (HCC) Allergies Active Allergy Reactions Severity Noted Date Comments Adhesive Tape Itching 04/29/2020 Penicillins Rash 02/12/2008 Perflutren Protein A Microsph 2019 Definity-lower back pain documented as of this encounter (statuses as of 08/07/2021) Medications Medication Sig Dispensed Refills Start Date [...] 120 Vial 11 0 Active nystatin (NYSTOP) 363889 UNIT/GM powder Apply topically to affected area [...] 60 Each 3 0 Active Dexcom G6 Applications Architect Device Use as directed. To test [...] Strip 3 1 Active OneTouch Delica Plus [id number] TESTING once daily 100 Each 3 1 Active BD Pen Needle Mini U/F 31G X 5 MM (Insulin Pen Needle)Indications: Type 2 diabetes mellitus with hemoglobin A1c goal of less than 7.0% (HCC) Use to inject insulin four times daily; E11.42 400 Each 3 1 Active Cinnamon 500 MG [...] ONCE DAILY 90 Tablet 1 1 Active Escitalopram Oxalate 20 MG Oral Tablet (Lexapro)Indication s:Recurrent major depressive disorder, in partial remission (HCC) TAKE 1 TABLET BY MOUTH ONCE DAILY 90 Tab 3 1 08/07/20 21 Discontinued documented as of this encounter (statuses as of 08/07/2021) Active Problems Problem Noted Date Food insecurity 04/19/2021 Overview: Per [facility] Protocol Lactic acidosis 03/22/2021 Portal [...] as of this encounter (statuses as of 08/07/2021) Resolved Problems Problem Noted Date Resolved Date [...] pain 01/24/2012 01/17/2017 Genetic Sleep Disorder Research Other*[id number] 05/13/2011 04/07/2016 Obstructive sleep apnea 01/18/2011 12/27/19 [...] as of this encounter (statuses as of 08/07/2021) Immunizations Name Administration Dates Next Due COVID-19 [...] encounter Miscellaneous Notes * Telephone Encounter - Katie Hartmann [facility] - 08/07/2021 8:45 AM EST Signed Prescriptions: Disp Refills Escitalopram Oxalate 20 MG Oral Tablet (Le*90 Tab*1 Sig: TAKE 1 TABLET BY MOUTH ONCE DAILYAuthorizing Provider: KOJO DUNN User: KATIE HARTMANN documented in this encounter Plan of Treatment Upcoming Encounters Date Type Specialty Care Team Description 08/09/2021 Office Visit Gastroenterology Sergei Sanchez DO [address] [place] [address] 08/10/2021 Office Visit Cardiology Quyen Canseco CRNP [address] [place] [address] 08/11/2021 Office Visit Endocrinology Alberta Duque PA-C [address] [place], [place] [id number] 09/08/2021 Immunization/Injection Hematology Oncolog y Nurse, Med 4 [address] [place] [address] 09/09/2021 Imaging Radiology 09/15/2021 Office Visit Pharmacy [place] [address] [place] [address] 09/16/2021 Telemedicine Gastroenterology Katherine Moore RDN [address] [place] [address] 10/22/2021 Office Visit [facility] Francisco [facility] [address] [facility] [address] 01/04/2022 Office Visit Hematology Oncology Tono Sanchez MD [address] [place] [address] 03/24/2022 Office Visit Pulmonary Reynaldo Marquez MD [address] [place] [address] 06/24/2022 Office Visit Sleep Disorders Love Francisco, DO [address] [place] [address] Scheduled Procedures Name Priority Associated Diagnoses Date/Ti [...] of this encounter Implants Implanted Type Area Ride Operator Device Identifier Shelf Expiration Date Model / Serial / Lot Microtech Sure Clip Implanted:Qty: 2 on 06/03/2020 by Janis Hatch DO at OR [facility] Clip N/A: Colon 04/21/2022 [facility]-F-26-2 35-C-R / / [id number] documented as of this encounter Visit Diagnoses Diagnosis Recurrent major depressive disorder, in partial remission (HCC) documented in this encounter Advance Directives Documents on File Type Date Recorded Patient Ordering Machine Operator Expl 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 AND HEALTH CARE POA Power of Manager Lab 04/29/2021 12:00 AM TOM R OF TREATER HELPER HEALTH CARE POA Advanced Directive 04/01/2021 [...] Bustos Spouse Emergency Contact Care Teams Head Of Precision Targeting Relationship Specialty Start Date End Date Kojo Dunn MD [address] [place] [facility] [place] [address] PCP - General Family Medicine 03/16/21 documented as of this encounter
--- OUTSIDE RECORDS SUMMARY | 2023-05-10 20:00 | External Medical Summary | Summary of Care ---
Author Name Unknown Organization [facility] [place] [address] Care Team Providers Care Electrical And Radio Mock Up Mechanic Name Role Phone Vanita Dunn MD Primary Care Provid er Encounter Details Date Type Department Care Team Description 08/09/2021 Scan Encounter [facility] [address] [place] [address] Vanita Dunn MD [address] [place] [address] <No scans attached> Allergies Active Allergy Reactions Severity Noted Date Comments Adhesive Tape Itching 04/29/2020 Penicillins Rash 02/12/2008 Perflutren Protein A Microsph 2019 Definity-lower back pain documented as of this encounter (statuses as of 08/11/2021) Medications Medication Sig Dispensed Refills Start Date [...] 120 Vial 11 10/02/2019 Active nystatin (NYSTOP) 135149 UNIT/GM powder Apply topically to affected area [...] 60 Each 3 07/27/2020 Active Dexcom G6 Roll Grinder Operator Device Use as directed. To test [...] Strip 3 10/29/2020 Active OneTouch Delica Plus Rapnsf76L TESTING once daily 100 Each 3 10/29/2020 [...] less than 7.0% ([facility]) Inject one pen (4.5 mg) [...] as of this encounter (statuses as of 08/11/2021) Active Problems Problem Noted Date Food insecurity 04/19/2021 Overview: Per [facility] Protocol Lactic acidosis 03/22/2021 Portal [...] as of this encounter (statuses as of 08/11/2021) Resolved Problems Problem Noted Date Resolved Date [...] failure 04/08/2019 04/18/2019 Oxygen dependent 04/08/2019 04/18/2019 [facility] resident 04/08/2019 05/02/2019 Fall 04/04/2019 05/05/2020 Sprain [...] pain 01/24/2012 01/17/2017 Genetic Sleep Disorder Research Other*[id number] 05/13/2011 04/07/2016 Obstructive sleep apnea 01/18/2011 12/27/19 [...] as of this encounter (statuses as of 08/11/2021) Immunizations Name Administration Dates Next Due COVID-19 [...] Encounters Date Type Specialty Care Team Description 08/11/2021 Office Visit Endocrinology Alberta Duque PA-C [address] [place] [address] 09/08/2021 Immunization/Injection Hematology Oncolog y Nurse, Med 4 [address] [facility] [place] [address] 09/09/2021 Imaging Radiology 09/14/2021 Office Visit Gastroenterology Lyssa Stout CRNP [address] [facility] [place] [address] 09/15/2021 Office Visit Pharmacy [facility] [address] [address] 09/16/2021 Telemedicine Gastroenterology Dershem, Katherine, RDN [address] [facility] [place] [address] 10/22/2021 Office Visit Sleep Disorders Love Francisco, DO [address] [place] [address] 01/04/2022 Office Visit Hematology Oncology Tono Sanchez MD [address] [place] [address] 03/24/2022 Office Visit Pulmonary Reynaldo Marquez MD [address] [facility] [place] [address] 06/24/2022 Office Visit Sleep Disorders Love Francisco, DO [address] [place] [address] Scheduled Procedures Name Priority Associated Diagnoses Date/Ti [...] this encounter Implants Implanted Type Area Grinder Mill Operator Device Identifier Shelf Expiration Date Model / Serial / Lot Microtech Sure Clip Implanted:Qty: 2 on 06/03/2020 by Janis Hatch DO at OR [facility] Clip N/A: Colon 04/21/2022 [facility]-F-26-2 35-C-R / / [id number] documented as of this encounter Advance Directives Documents on File Type Date Recorded Patient Customer Success Intern 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 LIVING WILL AND HEALTH CARE POA Power [employer] 04/29/2021 12:00 AM TOM [employer] [facility] POA Advanced Directive 04/01/2021 [...] Bustos Spouse Emergency Contact Care Teams Electrical And Radio Mock Up Mechanic Relationship Specialty Start Date End Date Vanita Dunn MD [address] [place] [address] PCP - General Family Medicine 03/16/21 documented as of this encounter
--- OUTSIDE RECORDS SUMMARY | 2023-05-10 20:00 | External Medical Summary ---
Author Name Unknown Address Unknown Organization K01:[facility] - [address] [place] [address] Laboratory Report Ordering Provider Test Date Status VICKY HUGHES 08/19/2021 16:19:02 Final Observation Date Value Abnormality Reference (Units ) Status HbA1C 08/19/2021 16:19:02 7.1 Above high normal 4. 0-5.6 (%) Final Performing Location [facility] - [address] [place] [address]
--- OUTSIDE RECORDS SUMMARY | 2023-05-10 20:00 | External Medical Summary | Summary of Care ---
Author Name Unknown Organization [facility] Address [place] [address] Care Team Providers Care Dietetic Intern Name Role Phone Vanita Dunn MD Primary Care Provid er Encounter Details Date Type Department Care Team Description 08/11/[address] [facility] [address] [place] [address] Vanita Dunn MD [address] [place] [address] Allergies Active Allergy Reactions Severity [...] 120 Vial 11 10/02/2019 Active nystatin (NYSTOP) 146568 UNIT/GM powder Apply topically to affected area [...] 60 Each 3 07/27/2020 Active Dexcom G6 Recorder Helper Seismograph Device Use as directed. To test blood [...] Strip 3 10/29/2020 Active OneTouch Delica Plus Ubtxfs99S TESTING once daily 100 Each 10/29/2020 Active BD Pen Needle Mini U/F 31G X 5 MM (Insulin Pen Needle)Indications:T ype 2 diabetes mellitus with hemoglobin A1c goal of less than 7.0% ([facility] [place] [facility]) Use to inject insulin four times daily; [...] ([facility] [place]) Inject one pen (4.5 mg) under [...] Noted Date Food insecurity 04/19/2021 Overview: Per [facility] Protocol Lactic acidosis 03/22/2021 Portal [...] failure 04/08/2019 04/18/2019 Oxygen dependent 04/08/2019 04/18/2019 pen[facility] resident 04/08/2019 05/02/2019 Fall 04/04/2019 05/05/2020 Sprain [...] pain 01/24/2012 01/17/2017 Genetic Sleep Disorder Research Other*[id number] 05/13/2011 04/07/2016 Obstructive sleep apnea 01/18/2011 12/27/19 [...] Visit Endocrinology Alberta Duque PA-C [address] [place] [address] 09/08/2021 Immunization/Injection Hematology Oncolog y Nurse, Med 4 [address] [place] [address] 09/09/2021 Imaging Radiology 09/14/2021 Office Visit [facility]enterology [facility]sa [facility]out CRNP [address] [facility] [address] 09/15/2021 Office Visit Pharmacy [place], [address] [place] [address] 09/16/2021 Telemedicine Gastroenterology Katherine Moore, RDN [address] [place] [facility] [place] [address] 10/22/2021 Office Visit Sleep Disorders Love Francisco, DO [address] [place] [address] 01/04/2022 Office Visit Hematology Oncology Tono Sanchez MD [address] [facility] [place] [address] 03/24/2022 Office Visit Pulmonary [facility]aldo Marquez [facility] [address] [facility] [address] 06/24/2022 Office Visit Sleep Disorders Love Francisco, DO [address] [place] [address] Scheduled Procedures Name Priority Associated Diagnoses Date/Ti [...] of this encounter Implants Implanted Type Area Cloth Burler Device Identifier Shelf Expiration Date Model / Serial / Lot Microtech Sure Clip Implanted:Qty: 2 on 06/03/2020 by Janis Hatch DO at OR [facility] Clip N/A: Colon 04/21/2022 [facility]-F-26-2 35-C-R / / [id number] documented as of this encounter Procedures Procedure Name Priority Date/Time Associated Diagnosis Comments CHEMISTRY-OUTSIDE Routine 08/09/2021 documented in this encounter Results * CHEMISTRY-OUTSIDE (08/09/2021) CREATININE-OUTSIDE LAB 0.80 0.6 - 1.2 MG/DL OUTSIDE LAB (SEE SCANNED REPORT) EGFR-OUTSIDE LAB 76.8 ML/MIN OUTSIDE LAB (SEE SCANNED REPORT) POTASSIUM-OUTSIDE LAB 4.0 3.5 - 5.1 MMOL/L OUTSIDE LAB (SEE SCANNED REPORT) GLUCOSE-OUTSIDE LAB 115(A) 70 - 99 MG/DL OUTSIDE LAB (SEE [...] LAB OUTSIDE LAB (SEE SCANNED REPORT) HEMOGLOBIN, [id number] LAB OUTSIDE LAB (SEE SCANNED REPORT) PHOSPHORUS-OUTSIDE LAB 3.5 2.5 - 4.9 MG/DL OUTSIDE LAB (SEE SCANNED REPORT) PTH-OUTSIDE LAB OUTSIDE LAB (SEE SCANNED REPORT) MICROALBUMIN RATIO-OUTSIDE LAB OUTSIDE LAB (SEE SCANNED REPORT) PROTEIN, UA-OUTSIDE LAB OUTSIDE LAB (SEE SCANNED REPORT) HEMOGLOBIN-OUTSIDE LAB 9.2 OUTSIDE LAB (SEE SCANNED REPORT) CHEMISTRY COMMENT-OUTSIDE LAB Comment:SEE SCAN - CHEM,MAG,TROPO THERESA,CBC OUTSIDE LAB (SEE SCANNED REPORT) Specimen Narrative OUTSIDE LAB (SEE SCANNED REPORT) documented in this encounter Advance Directives Documents on File Type Date Recorded Patient Gum Remover 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 WILL AND HEALTH CARE POA Power of Dressage Judge 04/29/2021 12:00 AM TOM R OF PET TRAINING INSTRUCTOR HEALTH CARE POA Advanced Directive 04/01/2021 [...] Syed Bustos Spouse Emergency Contact Care Teams Dietetic Intern Relationship Specialty Start Date End Date Vanita Dunn MD [address], [place] [id number] PCP - General Family Medicine 03/16/21 documented as of this encounter
--- OUTSIDE RECORDS SUMMARY | 2023-05-10 20:01 | External Medical Summary | Summary of Care ---
Author Name Unknown Organization [place] [address] Care Team Providers Care Furnace Brazer Name Role Phone Vanita Dunn MD Primary Care Provid er Reason for Visit * Reason Onset Date Comments Test Results Imaging Study 07/29/2021 Encounter Details Date Type Department Care Team Description 07/29/2021 Telephone [facility] [address] [place] [address] Carter Chan MD [address] [place] [address] Test Results Imaging Study Allergies Active Allergy Reactions Severity Noted Date Comments Adhesive Tape Itching 04/29/2020 Penicillins Rash 02/12/2008 Perflutren Protein A Microsph 2019 Definity-lower back pain documented as of this encounter (statuses as of 07/29/2021) Medications Medication Sig Dispensed Refills Start Date [...] 120 Vial 11 10/02/2019 Active nystatin (NYSTOP) 765813 UNIT/GM powder Apply topically to affected area [...] 60 Each 3 07/27/2020 Active Dexcom G6 Elevators Inspector Device Use as directed. To test [...] Strip 3 10/29/2020 Active OneTouch Delica Plus Umojbn64I TESTING once daily 100 Each 3 10/29/2020 Active BD Pen Needle Mini U/F 31G X 5 MM (Insulin Pen Needle)Indications:T ype 2 diabetes mellitus with hemoglobin A1c goal of less than 7.0% ([facility]) Use to inject insulin four times daily; E11.42 400 Each 3 12/05/2020 Active Escitalopram Oxalate 20 MG Oral Tablet (Lexapro)Indications :Recurrent major depressive disorder, in partial remission ([facility]) TAKE 1 TABLET BY MOUTH ONCE DAILY 90 Tab 3 12/28/2020 Active Cinnamon 500 MG Oral Capsule Take [...] of less than 7.0% ([facility]) Inject one pen (4.5 mg) [...] Pain, Severe. 20 Tablet 0 07/28/2021 Active documented as of this encounter (statuses as of 07/29/2021) Active Problems Problem Noted Date Food insecurity [...] as of this encounter (statuses as of 07/29/2021) Resolved Problems Problem Noted Date Resolved Date [...] failure 04/08/2019 04/18/2019 Oxygen dependent 04/08/2019 04/18/2019 shelter resident 04/08/2019 05/02/2019 Fall 04/04/2019 05/05/2020 Sprain [...] pain 01/24/2012 01/17/2017 Genetic Sleep Disorder Research Other*[id number] 05/13/2011 04/07/2016 Obstructive sleep apnea 01/18/2011 12/27/19 [...] as of this encounter (statuses as of 07/29/2021) Immunizations Name Administration Dates Next Due COVID-19 [...] Telephone Encounter - Josselin Gaspar LPN - 07/29/2021 10:03 AM EST Patient made aware of xray results. documented in this encounter Plan of Treatment Upcoming Encounters Date Type Specialty Care Team Description 08/03/2021 Office Visit Family Medicine Torrie Arciniega PA-C [address] [place] [address] 08/03/2021 Immunization/Injection Hematology Oncolog y Nurse, Med [address] [place] [address] 08/09/2021 Office Visit Gastroenterology Sergei Sanchez P, DO [address] [place] [address] 08/10/2021 Office Visit Cardiology Quyen Canseco CRNP [address] [place] [address] 08/11/2021 Office Visit Endocrinology Alberta Duque PA-C [address] [place], [place] [address] 09/09/2021 Imaging Radiology 09/15/2021 Office Visit Pharmacy [facility] [address] [place] [address] 09/16/2021 Telemedicine Gastroenterology Katherine Moore, RDN [address] [place] [address] 10/22/2021 Office Visit Sleep Disorders Love Francisco, DO [address] [place] [address] 01/04/2022 Office Visit Hematology Oncology Tono Sanchez MD [address] [place] [address] 03/24/2022 Office Visit Pulmonary Reynaldo Marquez MD [address] [place] [address] 06/24/2022 Office Visit Sleep Disorders Love Francisco, DO [address] [place] [address] Scheduled Procedures Name Priority Associated Diagnoses Date/Ti [...] of this encounter Implants Implanted Type Area Clip Coater Device Identifier Shelf Expiration Date Model / Serial / Lot Microtech Sure Clip Implanted:Qty: 2 on 06/03/2020 by Janis Hatch DO at OR [facility] Clip N/A: Colon 04/21/2022 [facility]-F-26-2 35-C-R / / [id number] documented as of this encounter Advance Directives Documents on File Type Date Recorded 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
--- OUTSIDE RECORDS SUMMARY | 2023-05-10 20:01 | External Medical Summary | Summary of Care ---
Author Name Unknown Organization [facility] [place] [address] Care Team Providers Care Angular Js Developer Name Role Phone Vanita Dunn MD Primary Care Provid er Reason for Visit * Reason Onset Date Comments Acute states t he pt is "sleepy". patient cant see so well. Immunizations 08/03/2021 Shingrix Encounter Details Date Type Department Care Team Description 08/03/2021 Office Visit Family Practice [facility] [address] [place] [address] Torrie [facility]ciniega PA-C [facility] [place] [address] Lumbar pain*; Need for vaccination for zoster; Drug-induced constipation Allergies Active Allergy Reactions Severity Noted Date Comments Adhesive Tape Itching 04/29/2020 Penicillins Rash 02/12/2008 Perflutren Protein A Microsph 2019 Definity-lower back pain documented as of this encounter (statuses as of 08/03/2021) Medications Medication Sig Dispensed Refills Start Date [...] 120 Vial 11 10/02/2019 Active nystatin (NYSTOP) 206138 UNIT/GM powder Apply topically to affected area [...] 60 Each 3 07/27/2020 Active Dexcom G6 Product Safety Compliance Leader Device Use as directed. To test [...] Strip 3 10/29/2020 Active OneTouch Delica Plus [id number] TESTING once daily 100 Each 3 10/29/2020 [...] or chew 40 Tablet 1 08/03/2021 Active documented as of this encounter (statuses as of 08/03/2021) Active Problems Problem Noted Date Food insecurity [...] as of this encounter (statuses as of 08/03/2021) Resolved Problems Problem Noted Date Resolved Date [...] failure 04/08/2019 04/18/2019 Oxygen dependent 04/08/2019 04/18/2019 retirement resident 04/08/2019 05/02/2019 Fall 04/04/2019 05/05/2020 Sprain [...] pain 01/24/2012 01/17/2017 Genetic Sleep Disorder Research Other*[id number] 05/13/2011 04/07/2016 Obstructive sleep apnea 01/18/2011 12/27/19 [...] as of this encounter (statuses as of 08/03/2021) Immunizations Name Administration Dates Next Due COVID-19 [...] Reading Time Taken Comments Blood Pressure 132/80 08/03/2021 12:01 PM EST Pulse - - Temperature 35.8 C (96.5 F) 08/03/2021 12:[address] Respiratory Rate - - Oxygen Saturation - - Inhaled Oxygen Concentration - - Weight 115.2 kg (254 lb) 08/03/2021 12:01 PM EST Height 149.9 cm (4' 11.02") 08/03/2021 12:01 PM EST Body Mass Index 51.27 08/03/2021 12:01 PM EST documented in this encounter Functional [...] Progress Notes * Torrie Arciniega PA-C - 08/03/2021 12:38 PM EST HPI: Shaina Bustos is a 66 year old female who presents to clinic accompanied by in f/u for back pain. She was recently in the emergency department with UTI. Was treated. Notes that she was having hematuria, urinary frequency. This has resolved. She also fell out of her Svetlana lift at home. Saw Dr. Chan last week who ordered an x-ray of her back which showed degenerative changes, but no acute fractures. Was given prescription for tramadol. administers medications and he is unsure how much or how often she is getting tramadol. Also using ibuprofen, but again not sure how much or how often. Pt notes that she is constipated over the last week or so. Feels sleepy today. She has not had any recent fever URI symptoms. No chest pain, shortness of breath. No abdominal pain, but does have some gas and bloating. No new edema. Does not like Miralax. ROS: See HPI for positives and negatives. Patient denies additional complaints. PAST MEDICAL HISTORY: Patient Active Problem List Diagnosis Code Venous insufficiency I87.2 Spinal stenosis of lumbar region without neurogenic claudication M48.061 Cerebral palsy ([facility]) G80.9 HTN, goal below 140/90 I10 Chronic rhinitis J31.0 NG (nonalcoholic steatohepatitis) K75.81 Hyperglycemia R73.9 Constipation K59.00 Venous stasis dermatitis of both lower extremities I87.2 DDD (degenerative disc disease), lumbar M51.36 Moderate persistent asthma without complication J45.40 Primary osteoarthritis of right knee M17.11 Lymphedema I89.0 Type 2 diabetes mellitus with hemoglobin A1c goal of less than 7.0% ([facility]) E11.9 Vitamin D deficiency E55.9 Restrictive lung disease J98.4 Obesity, morbid (more than 100 lbs over ideal weight or BMI > 40) ([facility]) E66.01 Dyslipidemia, goal LDL below 70 E78.5 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 R39.81 Atypical chest pain R07.89 Acquired hypothyroidism E03.9 Chronic pain syndrome G89.4 MEDICATION USE AGREEMENT [id number] Cirrhosis of liver ([facility]) K74.60 THAD on CPAP G47.33, Z99.89 Wheelchair dependent Z99.3 Pancytopenia ([facility]) D61.818 Ambulatory dysfunction R26.2 DM type 2 with diabetic peripheral neuropathy ([facility]) E11.42 Insomnia G47.00 Recurrent major depressive disorder, in partial remission ([facility]) F33.41 Impaired mobility and ADLs Z74.09, Z78.9 Generalized weakness R53.1 Gastroesophageal reflux disease K21.9 History of Achilles tendon repair Z98.890 Anemia D64.9 Fibromyalgia M79.7 Achilles tendinitis, right leg M76.61 Thrombocytopenia ([facility]) D69.6 Iron deficiency anemia due to chronic blood loss D50.0 Splenomegaly R16.1 Esophagitis K20.90 Esophageal varices ([facility]) I85.00 Uncontrolled type 2 diabetes mellitus with hyperglycemia ([facility]) E11.65 Cardiomegaly I51.7 SOB (shortness of breath) R06.02 Melena K92.1 Vancomycin resistant enterococcus culture positive Z22.39 Urinary catheter dysfunction ([facility]) T83.018A Cyst of pancreas K86.2 Calculus of kidney N20.0 Acute on chronic heart failure with preserved ejection fraction (HFpEF) ([facility]) I50.33 Anginal chest pain at rest ([facility]) I20.8 Portal hypertensive gastropathy ([facility]) K76.6, K31.89 Lactic acidosis E87.2 Food insecurity Z59.41 Past Surgical History: Procedure Laterality Date BONE DEBRIDEMENT, FIRST 20 CM2 Right 04/16/2020 DEBRIDEMENT SKIN SUBCUTANEOUS TISSUE MUSCLE AND BONE performed by Josh Vazquez MD at OR [facility] DELIVERY 04/20/1982 COLONOSCOPY 04/21/2009 repeat in 10 years COLONOSCOPY, DIAGNOSTIC (RECTUM) 10/04/2016 normal bx, repeat 10 yrs/[facility] COLONOSCOPY, DIAGNOSTIC (RECTUM) N/A 06/03/2020 internal hemorrhoids/biopsies show adenomatous polyps/recall 5 years/COLONOSCOPY FLEXIBLE PROXIMAL DIAGNOSTIC performed by Janis Hatch DO at OR [facility] COLONOSCOPY, DIAGNOSTIC (RECTUM) 03/17/2020 poor prep / [facility] DENTAL SURGERY PROCEDURE NEC wisdom teeth x 4 DILATION AND CURETTAGE (D&C) EGD, FLEXIBLE, DIAGNOSTIC 10/04/2016 gastritis/[facility] EGD, FLEXIBLE, DIAGNOSTIC 01/11/2018 eso varices, retained food, repeat 1 yr/[facility] EGD, FLEXIBLE, DIAGNOSTIC N/A 06/03/2020 severe erosive esophagitis/non-bleeding grade II esophageal varices/gastritis/biopsies show inflammatory changes/repeat 3-4 months/ESOPHAGOGASTRODUODENOSCOPY (EGD), FLEXIBLE, TRANSORAL, DIAGNOSTIC per formed by Janis Hatch DO at OR [facility] EGD, FLEXIBLE, DIAGNOSTIC 11/27/2019 eso varices, portal hypertensive gastropathy, gastritis / [facility] EGD, FLEXIBLE, DIAGNOSTIC N/A 08/05/2020 large amount of food in stomach/repeat 1.5 years/ESOPHAGOGASTRODUODENOSCOPY (EGD), FLEXIBLE, TRANSORAL, DIAGNOSTIC performed by Janis Hatch DO at OR [facility] EGD, FLEXIBLE, DIAGNOSTIC N/A 03/10/2021 ESOPHAGOGASTRODUODENOSCOPY (EGD), FLEXIBLE, TRANSORAL, DIAGNOSTIC performed by Kris Blankenship MD at ENDOSCOPY [facility] IR VENOUS ACCESS MEDIPORT 10/05/2020 PELVIS/HIP JOINT SURGERY NEC teenager aid in walking REPAIR/GRAFT ACHILLES TENDON age 40 aid in walking Review of patient's allergies indicates: Allergen Reactions Adhesive Tape Itching Pcn [Penicillins] Rash Perflutren Protein A Microsph Definity-lower back pain Current Outpatient Medications Medication Sig Dispense Refill Bisacodyl 5 MG Oral Tablet Delayed Release (Dulcolax) Take 2 Tablets by mouth daily as needed for Constipation. Do not use for more than one week. Do not cut, crush or chew 40 Tablet 1 CENTRUM SILVER PO TABS Take 1 Tab by mouth daily. 1 Tab 0 vitamin c (ASCORBIC ACID) 500 MG Tablet Take 500 mg by mouth daily. albuterol sulfate (PROVENTIL) (2.5 MG/3ML) 0.083% nebulizer solution Inhale 1 Vial via nebulizer every 6 hours as needed for Wheezing. 120 Vial 11 nystatin (NYSTOP) 534984 UNIT/GM powder Apply topically to affected area [...] a day. 60 Each 3 Dexcom G6 Product Safety Compliance Leader Device Use as directed. To test [...] daily 100 Strip 3 OneTouch Delica Plus [id number] TESTING once daily 100 Each 3 BD [...] 15 minutes (Patient not taking: Reported on 08/03/2021) 25 Tab 11 BiPAP every night at [...] needed for Pain, Severe. 20 Tablet 0 No current facility-administered medications for this visit. Nursing Notes: Alberta Linares [facility] 08/03/21 1205 Signed Chief Complaint Patient presents with Acute states the pt is "sleepy". patient cant see so well. EXAM: BP 132/80 | Temp 35.8 C (96.5 F) (Tympanic) | Ht (!) 1.499 m (4' 11.02") | Wt 115.2 kg (254 lb)| BMI 51.27 kg/m | BSA 2.19 m General: Patient is a 66-year-old female who is awake alert and oriented x3. Patient is in no acutedistress. Skin: No rashes. HEENT: Head is atraumatic, normocephalic. PERRLA. Sclerae anicteric. Mask present. Neck is supple. Cardiovascular: Regular rate and rhythm. S1 and S-2 appreciated. No murmurs. Lungs: Clear to auscultation bilaterally. No wheezes, rales, rhonchi. Abdomen: Soft, nontender, nondistended. Extremities: Well perfused. No peripheral edema. Neuro: No focal deficits. Psych: Appropriate mood and affect. Back: tenderness over the lumbar spinous process at the L4-L5 area. Does have some lumbar paraspinal muscle tenderness. No SI joint tenderness. ASSESSMENT/PLAN Lumbar pain (Primary) Will use tramadol 50 mg twice daily and ibuprofen 800 mg twice daily. I did write this down for leonelsband. They will also get some lidocaine patches. Recommend ice, heat, frequent position changes.Consider MRI for worsening pain. Need for vaccination for zoster Drug-induced constipation - Bisacodyl 5 MG Oral Tablet Delayed Release (Dulcolax); Take 2 Tablets by mouth daily as needed for Constipation. Do not use for more than one week. Do not cut, crush or chew F/u PRN There are no Patient Instructions on file for this visit. Torrie Arciniega PA-C [facility] [address] [facility] [address] This chart was completed in part utilizing [employer] Speech Voice Recognition Software. Grammatical errors, random [...] in this encounter Nursing Notes * DEBBIE Pablo - 08/03/2021 11:59 AM EST Chief Complaint Patient presents with Acute states the pt is "sleepy". patient cant see so well. documented in this encounter Plan of Treatment Upcoming Encounters Date Type Specialty Care Team Description 08/03/2021 Immunization/Injection Hematology Oncolog y Nurse, Med [address] [place] [place] [address] 08/09/2021 Office Visit Gastroenterology Sergei Sanchez DO [address] [place] [address] 08/10/2021 Office Visit Cardiology Quyen Canseco CRNP [address] [place] [address] 08/11/2021 Office Visit Endocrinology Alberta Duque PA-C [address] [place] [address] 09/09/2021 Imaging Radiology 09/15/2021 Office Visit Pharmacy [facility] [address] [address] 09/16/2021 Telemedicine Gastroenterology Katherine Moore, RDN [address] [place] [address] 10/22/2021 Office Visit Sleep Disorders Love Francisco, DO [address] [facility] [place] [address] 01/04/2022 Office Visit Hematology Oncology Tono Sanchez MD [address] [place] [address] 03/24/2022 Office Visit Pulmonary Reynaldo Marquez MD [address] [place] [address] 06/24/2022 Office Visit Sleep Disorders Love Francisco, DO [address] [facility] [place] [address] Scheduled Procedures Name Priority Associated Diagnoses Date/Ti [...] 07/06/2022 07/06/2021, 0710/2020, 03/21/2021, Additional history exists Pneumococcal Vaccine: 65+ [...] of this encounter Implants Implanted Type Area Boring Mill Operator Device Identifier Shelf Expiration Date Model / Serial / Lot Microtech Sure Clip Implanted:Qty: 2 on 06/03/2020 by Janis Hatch DO at OR [facility] Clip N/A: Colon 04/21/2022 [facility]-F-26-2 35-C-R / / [id number] documented as of this encounter Visit Diagnoses Diagnosis Lumbar pain- Primary Lumbago Need for vaccination for zoster Need for prophylactic vaccination and inoculation against other viral diseases Drug-induced constipation Other constipation documented in this encounter Advance Directives Documents on File Type Date Recorded Patient House Sitter 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 DIRECTIVE / LIVING WILL LIVING WILL AND [facility] POA [place] Ankeena NetworksCollection Administrator 04/29/2021 12:00 AM TOM R [facility] POA Advanced Directive 04/01/2021 1:14 [...] Syed Bustos Spouse Emergency Contact Care Teams Angular Js Developer Relationship Specialty Start Date End Date Vanita Dunn MD [address] [facility] [place] [address] PCP - General Family Medicine 03/16/21 documented as of this encounter
--- OUTSIDE RECORDS SUMMARY | 2023-05-10 20:01 | External Medical Summary | Summary of Care ---
Author Name Unknown Organization [place] [address] Care Team Providers Care Collar Pointer Name Role Phone Vanita Dunn MD Primary Care Provid er Reason for Visit * Reason Onset Date Comments No Show 08/03/2021 Pt forgot, franco eduled for 08/09/21 Encounter Details Date Type Department Care Team Description 08/03/2021 Telephone Hematology/Oncology [facility] [address] [place] [address] Tono Sanchez MD [address] [place] [address] No Show (Pt forgot, rescheduled for 08/09/21) Allergies Active Allergy Reactions Severity Noted Date [...] 120 Vial 11 10/02/2019 Active nystatin (NYSTOP) 287508 UNIT/GM powder Apply topically to affected area [...] 60 Each 3 07/27/2020 Active Dexcom G6 Per Diem Physical Therapist Assistant Device Use as directed. To test [...] TO ACCESSING. 30 g 3 10/09/2020 Active WhereInFair Verio In Vitro Strip (Glucose Blood) TESTING once daily 100 Strip 3 10/29/2020 Active OneTouch Delica Plus [id number] TESTING once daily 100 Each 3 10/29/2020 Active BD Pen Needle Mini U/F 31G X 5 MM (Insulin Pen Needle)Indications:T ype 2 diabetes mellitus with hemoglobin A1c goal of less than 7.0% ([facility]) Use to inject insulin four times daily; E11.42 400 Each 3 12/05/2020 Active Escitalopram Oxalate 20 MG Oral Tablet (Lexapro)Indications :Recurrent major depressive disorder, in partial remission ([facility]) TAKE 1 TABLET BY MOUTH [...] Date Resolved Date AMS (altered mental status) 02/04/202101/101 Acute blood loss anemia 07/06/2020 12/01/19 21 [...] failure 04/08/2019 04/18/2019 Oxygen dependent 04/08/2019 04/18/2019 long term resident 04/08/2019 05/02/2019 Fall 04/04/2019 05/05/2020 Sprain [...] pain 01/24/2012 01/17/2017 Genetic Sleep Disorder Research Other*[id number] 05/13/2011 04/07/2016 Obstructive sleep apnea 01/18/2011 12/27/19 [...] encounter Miscellaneous Notes * Telephone Encounter - Cathy Patton RN - 08/03/2021 3:56 PM EST Pt was called after she was a No Show for port flush. Pt forgot appt and has been rescheduled for port flush on 08/09/21. Please adjust Tx Plan. thanks documented in this encounter Plan of Treatment Upcoming Encounters Date Type Specialty Care Team Description 08/09/2021 Office Visit Gastroenterology Sergei Sanchez P, DO [address] [facility] [place] [address] 08/10/2021 Office Visit Cardiology Quyen Canseco CRNP 132 [facility] [place] [address] 08/11/2021 Office Visit Endocrinology Alberta Duque PA-C [address] [place] [address] 09/08/2021 Immunization/Injection Hematology Oncolog y Nurse, Med 4 [address] [place] [address] 09/09/2021 Imaging Radiology 09/15/2021 Office Visit Pharmacy [facility] [address] [place] [address] 09/16/2021 Telemedicine Gastroenterology Oscar Katherine, RDN [address] [place], [place] [address] 10/22/2021 Office Visit [facility] Disorders Love Francisco, DO [facility] [place] [address] 01/04/2022 Office Visit Hematology Oncology Tono Sanchez MD [address] [place] [address] 03/24/2022 Office Visit Pulmonary Reynaldo Marquez MD [address] [place] [address] 06/24/2022 Office Visit Sleep Disorders Love Francisco, DO 132 [facility] [place] [address] Scheduled Procedures Name Priority Associated Diagnoses Date/Ti [...] of this encounter Implants Implanted Type Area Manufacturing Maintenance Mechanic Device Identifier Shelf Expiration Date Model / Serial / Lot Microtech Sure Clip Implanted:Qty: 2 on 06/03/2020 by Janis Hatch DO at OR [facility] Clip N/A: Colon 04/21/2022 [facility]-F-26-2 35-C-R / / [id number] documented as of this encounter Advance Directives Documents on File Type Date Recorded Patient Hawk Missile System Crewmember 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 AND HEALTH CARE POA Power of Single Resource Boss 04/29/2021 12:00 AM TOM R OF ROPE COILING MACHINE OPERATOR HEALTH CARE POA Advanced Directive [...] Syed Bustos Spouse Emergency Contact Care Teams Collar Pointer Relationship Specialty Start Date End Date Vanita Dunn MD [address] [place] [address] PCP - General Family Medicine 03/16/21 documented as of this encounter
--- OUTSIDE RECORDS SUMMARY | 2023-05-10 20:01 | External Medical Summary | Summary of Care ---
Author Name Unknown Organization [place] [address] Care Team Providers Care Toll Collector Supervisor Name Role Phone Vanita Dunn MD Primary Care Provid er Reason for Visit * Reason Onset Date Comments No Show 08/03/2021 Pt forgot, franco eduled for 08/09/21 Encounter Details Date Type Department Care Team Description 08/03/2021 Telephone Hematology/Oncology [facility] [address] [place] [address] Tono Sanchez MD [address] [place] [address] No Show (Pt forgot, rescheduled for 08/09/21) [...] 120 Vial 11 10/02/2019 Active nystatin (NYSTOP) 414283 UNIT/GM powder Apply topically to affected area [...] 60 Each 3 07/27/2020 Active Dexcom G6 Set Making Machine Operator Device Use as directed. [...] TO ACCESSING. 30 g 3 10/09/2020 Active PostRocket Verio In Vitro Strip (Glucose Blood) TESTING once daily 100 Strip 3 10/29/2020 Active OneTouch Delica Plus [id number] TESTING once daily 100 Each 3 10/29/2020 Active BD Pen Needle Mini U/F 31G X 5 MM (Insulin Pen Needle)Indications:T ype 2 diabetes mellitus with hemoglobin A1c goal of less than 7.0% ([facility]) Use to inject insulin four times daily; E11.42 400 Each 3 12/05/2020 Active Escitalopram Oxalate 20 MG Oral Tablet (Lexapro)Indications :Recurrent major depressive disorder, in partial remission ([facility]) TAKE 1 TABLET BY MOUTH [...] pain 01/24/2012 01/17/2017 Genetic Sleep Disorder Research Other*[id number] 05/13/2011 04/07/2016 Obstructive sleep apnea 01/18/2011 12/27/19 [...] Gastroenterology Sergei Sanchez P, DO [address] [facility] [place] [address] 08/10/2021 Office Visit Cardiology Quyen Canseco CRNP [address] [facility] [place] [address] 08/11/2021 Office Visit Endocrinology Alberta Duque PA-C [address] [place] [address] 09/08/2021 Immunization/Injection Hematology Oncolog y Nurse, Med 4 [address] [place] [address] 09/09/2021 Imaging Radiology 09/15/2021 Office Visit Pharmacy [facility] [address] [place] [address] 09/16/2021 Telemedicine Gastroenterology Oscar Katherine, RDN [address] [place], [place] [address] 10/22/2021 Office Visit Sleep Disorders Love Francisco, DO [address] [facility] [address] 01/04/2022 Office Visit Hematology Oncology Tono Sanchez MD [address] [place] [address] 03/24/2022 Office Visit Pulmonary Reynaldo Marquez MD [address] [place] [address] 06/24/2022 Office Visit Sleep Disorders Love Francisco, DO [address] [facility] [place] [address] Scheduled Procedures Name Priority Associated Diagnoses Date/Ti [...] of this encounter Implants Implanted Type Area Retail Department Supervisor Device Identifier Shelf Expiration Date Model / Serial / Lot Microtech Sure Clip Implanted:Qty: 2 on 06/03/2020 by Janis Hatch DO at OR [facility] Clip N/A: Colon 04/21/2022 [facility]-F-26-2 35-C-R / / [id number] documented as of this encounter Advance Directives Documents on File Type Date Recorded Patient Business Intelligence Director 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 WILL AND HEALTH CARE POA Power of Tower Dragline Operator 04/29/2021 12:00 AM TOM R OF BENCH WORKER BINDING HEALTH CARE POA Advanced Directive 04/01/2021 1:14 [...] Agents on File Name Relationship Healthcare Agent Romainmd p Communication Syed Bustos Spouse Emergency Contact Care Teams Toll Collector Supervisor Relationship Specialty Start Date End Date Vanita Dunn MD [address] [place] [address] PCP - General Family Medicine 03/16/21 documented as of this encounter
--- OUTSIDE RECORDS SUMMARY | 2023-05-10 20:02 | External Medical Summary | Summary of Care ---
Author Name Unknown Organization [place] [address] Care Team Providers Care Cardiac Specialist Name Role Phone Vanita Dunn MD Primary Care Provid er Reason for Visit * Reason Comments Dosage Adjustment In Person (Anticoag Cl inic) Diabetes Follow-Up Encounter Details Date Type Department Care Team Description 07/28/2021 Office Visit Pharmacy, [place] [address] [place] [address] [facility] [address] [place] [address] Type 2 diabetes mellitus with hemoglobin A1c goal of less than 7.0% ([facility])* Allergies Active Allergy Reactions Severity Noted Date Comments Adhesive Tape Itching 04/29/2020 Penicillins Rash 02/12/2008 Perflutren Protein A Microsph 2019 Definity-lower back pain documented as of this encounter (statuses as of 07/28/2021) Medications Medication Sig Dispensed Refills Start Date [...] 120 Vial 11 10/02/2019 Active nystatin (NYSTOP) 582943 UNIT/GM powder Apply topically to affected area [...] 60 Each 3 07/27/2020 Active Dexcom G6 Patrol Community Service Officer Device Use as directed. To test [...] TO ACCESSING. 30 g 3 10/09/2020 Active Inhance Media Verio In Vitro Strip (Glucose Blood) TESTING once daily 100 Strip 3 10/29/2020 Active OneTouch Delica Plus [id number] TESTING once daily 100 Each 3 10/29/2020 [...] traMADol HCl 50 MG Oral Tablet (Ultram)Indications: Lumbar pain on palpation Take 1 Tablet by mouth every 6 hours as needed (One tab twice daily for low back pain as needed). 20 Tablet 0 07/28/2021 Active documented as of this encounter (statuses as of 07/28/2021) Active Problems Problem Noted Date Food insecurity [...] as of this encounter (statuses as of 07/28/2021) Resolved Problems Problem Noted Date Resolved Date [...] failure 04/08/2019 04/18/2019 Oxygen dependent 04/08/2019 04/18/2019 senior living resident 04/08/2019 05/02/2019 Fall 04/04/2019 05/05/2020 Sprain [...] pain 01/24/2012 01/17/2017 Genetic Sleep Disorder Research Other*[id number] 05/13/2011 04/07/2016 Obstructive sleep apnea 01/18/2011 12/27/19 [...] as of this encounter (statuses as of 07/28/2021) Immunizations Name Administration Dates Next Due COVID-19 [...] this encounter Progress Notes * Indira Hudson, [facility] - 07/28/2021 9:37 AM EST Images from the original note were not included. Medication Therapy [facility] - Diabetes Management Progress Note Shaina Bustos, identified by name and date of , is a 66 year old female being seen for diabetesmanagement/education. Patient presents for return diabetic visit. DIABETES: Current diabetic medications: Novolog, Inject 32 units before breakfast, 36 units before lunch, and 36 units before supper- plus scale below that pt reports received while admitted- reports not using scale in past week or so Lantus pen, 32 units daily- to reflect how taking RESTART: Metformin ER 500mg daily Trulicity 4.5mg SQ weekly GFR >90 as of 04/05/21 They confirmed they are taking Novolog 32 units before breakfast, 36 units before lunch, and 36 units before supper PLUS chart below per patient: BG Units Before Meal If not planning to eat and at bedtime add: 80 to 150 6 units 0 units 151 to 200 8 units 2 units 201 to 250 10 units 4 units 251 to 300 12 units 6 units 301 to 350 14 units 8 units 351+ 16 units 10 units Lifestyle: Diet: unchanged Glucose Review/SMBG: Readings obtained from patient device Dexcom Hypoglycemia: Does your blood sugar go below 70 mg/dL? No Hyperglycemia symptoms present: none Lab Results Component Value Date/Time HEMOGLOBIN A1C - [facility] 7.4 (H) 06/10/2021 02:45 PM HEMOGLOBIN A1C - [facility] 8.5 (H) 03/08/2021 03:40 AM HEMOGLOBIN A1C - [facility] 6.9 (H) 11/30/2020 11:32 AM HEMOGLOBIN A1C - [facility] 9.9 (H) 07/06/2020 05:24 AM HEMOGLOBIN A1C - [facility] 11.0 (H) 05/26/2020 04:44 AM HEMOGLOBIN A1C - [facility] 9.9 (H) 04/28/2020 04:37 PM Lab Results Component Value Date/Time ESTIMATED GLOMERULAR FILTRATION RATE - [facility] 63.4 06/16/2021 09:00 PM ESTIMATED GLOMERULAR FILTRATION RATE - [facility] 79.5 06/10/2021 02:45 PM ESTIMATED GLOMERULAR FILTRATION RATE - [facility] >90.0 06/06/2021 05:46 PM ESTIMATED GLOMERULAR FILTRATION RATE - [facility] [...] Results Component Value Date/Time CREATININE - [facility] 0.9 06/16/2021 09:00 PM CREATININE - [facility] 0.8 06/10/2021 02:45 PM CREATININE - [facility] 0.7 06/06/2021 05:46 PM CREATININE - [facility] 0.6 09/24/2020 05:16 PM CREATININE - [facility] 0.6 09/23/2020 02:36 PM CREATININE - [facility] 0.7 08/21/2020 04:35 PM No results found for: HEMOGLOBIN A1C POCT Lab Results Component Value Date/Time CREATININE - [facility] 0.9 06/16/2021 09:00 PM CREATININE - [facility] 0.8 06/10/2021 02:45 PM CREATININE - [facility] 0.7 06/06/2021 05:46 PM CREATININE - [facility] 0.6 09/24/2020 05:16 PM CREATININE - [facility] 0.6 09/23/2020 02:36 PM CREATININE - [facility] 0.7 08/21/2020 04:35 PM CREATININE, RANDOM URINE - [facility] 115 01/11/2019 01:29 PM CREATININE, RANDOM URINE - [facility] 81 02/03/2017 09:58 AM CREATININE, RANDOM URINE - [facility] 168 08/25/2015 01:56 PM CREATININE-OUTSIDE LAB 0.77 08/24/2018 12:00 AM CREATININE-OUTSIDE LAB 0.82 07/19/2018 12:00 AM CREATININE-OUTSIDE LAB 0.91 07/11/2018 12:00 AM HYPERTENSION: Patient on ACEi/ARB: no, BP at goal BP Readings from Last 3 Encounters: 07/28/21 132/80 07/22/21 132/80 07/16/21 120/78 HYPERLIPIDEMIA: Patient is taking moderate or high intensity statin: yes HEALTH MAINTENANCE REVIEW: Health Maintenance Due Topic Date Due DIABETES-EYE EXAM 06/12/2019 Dexa Scan Never done Zoster Vaccines (3 of 3) 06/23/2020 COVID-19 Vaccine (3 - Booster for Moderna series) 06/22/2021 BREAST CANCER SCREENING DISCUSSION YEARLY AGES 40-75 09/08/2021 ASSESSMENT & PLAN: ICD-10-CM 1. Type 2 diabetes mellitus with hemoglobin A1c goal of less than 7.0% (HCC) E11.9 Complicating Factors: cirrhosis; poor historian; identifies the insulin via color (Novolog- orange;Lantus- juarez) Presents with . BG Readings Reviewed Dexcom Clarity. Blood sugars improving. Denies hypoglycemia. Medications Reviewed current regimen. Tolerating. Patient seen by provider today. Patient fell.Getting xray for back. They are not sure if they ever started metformin. In the future if unable toconfirm may need to contact pharmacy that packs pills? Patient's reports he has not been using sliding scale the past week or so. After discussion, will stop SS. Discussed if needed in the future will create new CF chart. No other change at this time. Patient to contact clinic with any issues. Patient is agreeable to SMBG via Dexcom Patient aware to contact clinic if any hypoglycemia before next visit. MEDICATION CHANGES: Yes see below: Diabetic Medications: STOP SS: Novolog, Inject 32 units before breakfast, 36 units before lunch, and 36 units before supper Lantus pen, 32 units daily Metformin ER 500mg daily Trulicity 4.5mg SQ weekly GFR 63.4 as of 06/16/21 HEALTH MAINTENANCE INTERVENTIONS: Labs: Up to Date Immunizations: deferred due to time constraints Foot Exam: Up to Date Eye Exam: deferred due to patient acute issues FOLLOW UP: Return to clinic in 7 weeks Next Office Visit: 09/15/2021 Scheduled Provider(s): [facility] [place] Indira Hudson steph Clinical Pharmacist - Webbing Inspector Medication Therapy Management [facility] 07/28/2021, 9:37 AM documented in this encounter Plan of Treatment Upcoming Encounters Date Type Specialty Care Team Description 07/29/2021 Office Visit Cardiology Quyen Canseco CRNP [address] [place] [address] 08/03/2021 Office Visit Family Medicine Torrie Arciniega PA-C [address] [place] [address] [address] 08/03/2021 Immunization/Injection Hematology Oncolog y Nurse, Med [address] [facility] [address] 08/09/2021 Office Visit Gastroenterology Sergei Sanchez DO [address] [place] [address] 08/11/2021 Office Visit Endocrinology Alberta Duque PA-C [address] [place] [address] 09/09/2021 Imaging Radiology 09/15/2021 Office Visit Pharmacy [facility] [address] [place] [address] 09/16/2021 Telemedicine Gastroenterology Katherine Moore, RDN [address] [place] [address] 10/22/2021 Office Visit Sleep Disorders Love Francisco, DO [address] [facility] [place] [address] 01/04/2022 Office Visit Hematology Oncology Tono Sanchez MD [address] [place] [address] 03/24/2022 Office Visit Pulmonary Reynaldo Marquez MD [address] [place] [address] 06/24/2022 Office Visit Sleep Disorders Love Francisco DO [address] [facility] [place] [address] Scheduled Procedures Name Priority Associated Diagnoses Date/Ti [...] of this encounter Implants Implanted Type Area Fountain Jerk Device Identifier Shelf Expiration Date Model / Serial / Lot Microtech Sure Clip Implanted:Qty: 2 on 06/03/2020 by Janis Hatch DO at OR [facility] Clip N/A: Colon 04/21/2022 [facility]F-26-2 35-C-R / / [id number] documented as of this encounter Visit Diagnoses Diagnosis Type 2 diabetes mellitus with hemoglobin A1c goal of less than 7.0% (HCC)- Primary documented in this encounter Advance Directives Documents on File Type Date Recorded Patient Store Mgr 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 WILL AND HEALTH CARE POA Power of Tonal Regulator 04/29/2021 12:00 AM TOM R [facility]A Advanced Directive 04/01/2021 1:14 [...] Bustos Spouse Emergency Contact Care Teams Cardiac Specialist Relationship Specialty Start Date End Date Vanita Dunn MD [address] [facility] [place] [address] PCP - General Family Medicine 03/16/21 documented as of this encounter
--- OUTSIDE RECORDS SUMMARY | 2023-05-10 20:02 | External Medical Summary | Summary of Care ---
Author Name Unknown Organization [place] [address] Care Team Providers Care Farm Reporter Name Role Phone Vanita Dunn MD Primary Care Provid er Reason for Visit * Reason Onset Date Comments Medication Question 07/28/2021 Encounter Details Date Type Department Care Team Description 07/28/[address] [facility] [address] [place] [address] Carter Chan MD [address] [place] [address] Medication Question Allergies Active Allergy Reactions Severity [...] 120 Vial 11 0 Active nystatin (NYSTOP) 687616 UNIT/GM powder Apply topically to affected area [...] 60 Each 3 0 Active Dexcom G6 Campus Chaplain Device Use as directed. To test blood [...] once daily 100 Strip 3 1 Active Array Health SolutionsTouch Delica Plus [id number] TESTING once daily 100 Each 3 1 Active BD Pen Needle Mini U/F 31G X 5 MM (Insulin Pen Needle)Indications: Type 2 diabetes mellitus with hemoglobin A1c goal of less than 7.0% ([facility]) Use to inject insulin four times daily; E11.42 400 Each 3 1 Active Escitalopram Oxalate 20 MG Oral Tablet (Lexapro)Indication s:Recurrent major depressive disorder, in partial remission (HCC) TAKE 1 TABLET BY MOUTH ONCE DAILY 90 Tab 3 1 Active Cinnamon 500 MG Oral [...] A1c goal of less than 7.0% ([facility]) Inject one pen (4.5 mg) under the [...] Pain, Severe. 20 Tablet 0 1 Active traMADol HCl 50 MG Oral Tablet (Ultram)Indications :Lumbar pain on palpation Take 1 Tablet by mouth every 6 hours as needed (One tab twice daily for low back pain as needed). 20 Tablet 0 1 07/28/20 21 Discontinued documented as of this encounter (statuses as of 07/28/2021) Active Problems Problem Noted Date Food insecurity 04/19/2021 Overview: Per [facility] Protocol Lactic acidosis 03/22/2021 Portal hypertensive [...] pain 01/24/2012 01/17/2017 Genetic Sleep Disorder Research Other*[id number] 05/13/2011 04/07/2016 Obstructive sleep apnea 01/18/2011 12/27/19 [...] Telephone Encounter - Carter Chan MD - 07/28/2021 12:09 PM EST New script emailed * Telephone Encounter - DEVIKA Luna - 07/28/2021 11:45 AM EST Pharmacy is calling because pt's prescription for Tramadol was sent with unclear directions stating"Take 1 tablet by mouth every 6 hours as needed (one tab twice daily for low back pain as needed).". Please clarify the directions for this medication and send a new prescription to [facility] [id number] Thank you, Lizzie Ivan CPhT Application Support Analyst II [facility] 07/28/2021,11:45 AM documented in this encounter Plan of Treatment Upcoming Encounters Date Type Specialty Care Team Description 07/28/2021 Office Visit Pharmacy [facility] [address] [place] [address] Type 2 diabetes mellitus with hemoglobin A1c goal of less than 7.0% (HCC)* 07/29/2021 Office Visit Cardiology Quyen Canseco CRNP [address] [place] [address] 08/03/2021 Office Visit Family Medicine Torrie Arciniega PA-C [address] [place] [address] 08/03/2021 Immunization/Injecti on Hematology Oncology Nurse, Med [address] [facility], [place] [address] 08/09/2021 Office Visit Gastroenterology Sergei Sanchez DO [address] [place] [facility] [place] [address] 08/11/2021 Office Visit Endocrinology Alberta Duque PA-C [address] [place], [place] [address] 09/09/2021 Imaging Radiology 09/15/2021 Office Visit Pharmacy [facility] [address] [place] [address] 09/16/2021 Telemedicine Gastroenterology Katherine Moore RDN [address] [place], [place] [id number] 10/22/2021 Office Visit Sleep Disorders Love Francisco DO [address] [place] [address] 01/04/2022 Office Visit Hematology Oncology Tono Sanchez MD [address] [place] [address] 03/24/2022 Office Visit Pulmonary Reynaldo Marquez MD [address] [place] [address] 06/24/2022 Office Visit Sleep Disorders Love Francisco, DO [address] [place] [address] Scheduled Procedures Name Priority Associated Diagnoses Date/Ti [...] of this encounter Implants Implanted Type Area Paint Formulator Device Identifier Shelf Expiration Date Model / Serial / Lot Microtech Sure Clip Implanted:Qty: 2 on 06/03/2020 by Janis Hatch DO at [facility] Clip N/A: Colon 04/21/2022 [facility]-F-26-2 35-C-R / / [id number] documented as of this encounter Visit Diagnoses Diagnosis Type 2 diabetes mellitus with hemoglobin A1c goal of less than 7.0% (HCC)- Primary Lumbar pain on palpation documented in this encounter Advance Directives Documents on File Type Date Recorded Patient Manager Stone 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 LIVING WILL AND HEALTH CARE PO Power [employer] Social Studies Teacher 04/29/2021 12:00 AM TOM [facility] Advanced Directive 04/01/2021 1:14 PM Advanced Directive [...] [facility] p Communication Syed Bustos Spouse Emergency Contact Care Teams Farm Reporter Relationship Specialty Start Date End Date Vanita Dunn MD [address] [place] [address] PCP - General Family Medicine 03/16/21 documented as of this encounter
--- OUTSIDE RECORDS SUMMARY | 2023-05-10 20:02 | External Medical Summary | Summary of Care ---
Author Name Unknown Organization [place] [address] Care Team Providers Care Industry Operations Investigator Name Role Phone Vanita Dunn MD Primary Care Provid er Reason for Visit * Reason Onset Date Comments Fax 07/28/2021 Encounter Details Date Type Department Care Team Description 07/28/2021 Telephone [facility] [address] [place] [address] Vanita Dunn MD [address] [place] [address] Fax Allergies Active Allergy Reactions [...] 120 Vial 11 10/02/2019 Active nystatin (NYSTOP) 683068 UNIT/GM powder Apply topically to affected area [...] 60 Each 3 07/27/2020 Active Dexcom G6 Marketing Director Assisted Living Device Use as directed. To test blood [...] Strip 3 10/29/2020 Active OneTouch Delica Plus [id number] TESTING once daily 100 Each 3 10/29/2020 Active BD Pen Needle Mini U/F 31G X 5 MM (Insulin Pen Needle)Indications:T ype 2 diabetes mellitus with hemoglobin A1c goal of less than 7.0% ([facility]) Use to inject insulin four times daily; E11.42 400 Each 3 12/05/2020 Active Escitalopram Oxalate 20 MG Oral Tablet (Lexapro)Indications :Recurrent major depressive disorder, in partial remission ([facility]) TAKE 1 TABLET BY MOUTH ONCE [...] of less than 7.0% ([facility]) Inject one pen (4.5 mg) under [...] failure 04/08/2019 04/18/2019 Oxygen dependent 04/08/2019 04/18/2019 long-term resident 04/08/2019 05/02/2019 Fall 04/04/2019 05/05/2020 Sprain [...] pain 01/24/2012 01/17/2017 Genetic Sleep Disorder Research Other*[id number] 05/13/2011 04/07/2016 Obstructive sleep apnea 01/18/2011 12/27/19 [...] Miscellaneous Notes * Telephone Encounter - THAD Deleon - 07/28/2021 2:00 PM EST Faxed * Telephone Encounter - THAD Ramirez - 07/28/2021 1:45 PM EST Need Xray 07/28/21 Order faxed/patient arrived documented in this encounter Plan of Treatment Upcoming Encounters Date Type Specialty Care Team Description 07/28/2021 Office Visit Pharmacy [place] [address] [facility] [place] [address] Type 2 diabetes mellitus with hemoglobin A1c goal of less than 7.0% ([facility])* 07/29/2021 Office Visit Cardiology Quyen Canseco CRNP [address] [facility] [place] [address] 08/03/2021 Office Visit Family Medicine Torrie Arciniega PA-C [address] [facility], [place] [address] 08/03/2021 Immunization/Injecti on Hematology Oncology Nurse, Med [address] [place] [address] 08/09/2021 Office Visit Gastroenterology Sergei Sanchez, DO [address] [place], [place] [address] 08/11/2021 Office Visit Endocrinology Alberta Duque PA-C [address] [place], [place] [address] 09/09/2021 Imaging Radiology 09/15/2021 Office Visit Pharmacy [address] [address] 09/16/2021 Telemedicine Gastroenterology Oscar Katherine, RDN [address] [place], [place] [phone] 10/22/2021 Office Visit [facility] Francisco[facility] [address] [facility] [address] 01/04/2022 Office Visit Hematology Oncology Tono Sanchez MD [address] [facility] [place] [address] 03/24/2022 Office Visit Pulmonary Reynaldo Marquez MD [address] [place] [id number] 06/24/2022 Office Visit Sleep Disorders Love Francisco, DO [address] [facility] [place] [address] Scheduled Procedures Name Priority Associated Diagnoses Date/Ti [...] of this encounter Implants Implanted Type Area Diagram Clerk Device Identifier Shelf Expiration Date Model / Serial / Lot Microtech Sure Clip Implanted:Qty: 2 on 06/03/2020 by Janis Hatch DO at OR [facility] Clip N/A: Colon 04/21/2022 [id number]-F-26-2 35-C-R / / [id number] documented as of this encounter Advance Directives Documents on File Type Date Recorded Patient Folder Seamer Automatic 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 WILL AND HEALTH CARE POA Power of Mac Developer 04/29/2021 12:00 AM TOM R OF SOFTWARE SALES MANAGER HEALTH CARE POA Advanced Directive 04/01/2021 [...] Agents on File Name Relationship Healthcare Agent [facility] p Communication Syed Bustos Spouse Emergency Contact Care Teams Industry Operations Investigator Relationship Specialty Start Date End Date Vanita Dunn MD [address] [place] [address] PCP - General Family Medicine 03/16/21 documented as of this encounter
--- OUTSIDE RECORDS SUMMARY | 2023-05-10 20:03 | External Medical Summary | Summary of Care ---
Author Name Unknown Organization [place] [address] Care Team Providers Care Paper Folding Machine Operator Name Role Phone Vanita Dunn MD Primary Care Provid er Reason for Referral * Medication Prior Authorization - Pending Review Specialty Diagnoses / Procedures Referred By Evangelina jeter Referred To Contact Diagnoses Lumbar pain on palpation Carter Chan MD [address] [place] [address] Referral ID Status Reason Start Date Expiration Date V isits Requested Visits Authorized [id number] Pending Review 1 1 Reason for Visit * Reason Comments Emergency Department Follow-Up Encounter Details Date Type Department Care Team Description 07/28/2021 Office Visit [facility] [address] [place] [phone] Carter Chan MD [address] [place] [address] Lumbar pain on palpation* Allergies Active Allergy Reactions Severity Noted Date [...] 120 Vial 11 10/02/2019 Active nystatin (NYSTOP) 068762 UNIT/GM powder Apply topically to affected area [...] 60 Each 3 07/27/2020 Active Dexcom G6 Heavy Equipment Operator/Paver Device Use as directed. To test blood [...] once daily 100 Strip 3 10/29/2020 Active PromosomeTouch Delica Plus [id number] TESTING once daily 100 Each 3 10/29/2020 [...] Date Resolved Date AMS (altered mental status) 02/04/2021 05/2 05/2021 Acute blood loss anemia 07/06/2020 12/01/19 21 [...] failure 04/08/2019 04/18/2019 Oxygen dependent 04/08/2019 04/18/2019 jail resident 04/08/2019 05/02/2019 Fall 04/04/2019 05/05/2020 Sprain [...] pain 01/24/2012 01/17/2017 Genetic Sleep Disorder Research Other*[id number] 05/13/2011 04/07/2016 Obstructive sleep apnea 01/18/2011 12/27/19 [...] Reading Time Taken Comments Blood Pressure 132/80 07/28/2021 8:34 AM EST Pulse 74 07/28/2021 8:34 AM EST Temperature 35.7 C (96.3 F) 07/28/2021 8:34 AM ES T Respiratory Rate 16 07/28/2021 8:34 AM EST Oxygen Saturation 94% 07/28/2021 8:34 AM EST Inhaled Oxygen Concentration - - [...] Progress Notes * Carter Chan MD - 07/28/2021 8:58 AM EST Subjective: Shaina Bustos is a 66 year old female. Chief Complaint Patient presents with Emergency Department Follow-Up HPI: 66-year-old who has known cerebral palsy and is wheelchair/bed written and relies on whole year lift for transfers was seen in the emergency room on Monday i.e. 3 days ago. She had hematuria. Was diagnosed with urinary tract infection and prescribed Bactrim which she continues to take. She hasnoted some improvement especially in regards to frequency and blood. But, later in the day she was being transferred via whole year lift from the bed to the chair and slipped and dropped down onto the chair. At the time she did not feel bad but ever since then she has developed increase lumbosacralpain. She has cirrhosis so limits Tylenol. She does use ibuprofen some Um-as much as 800 mg but I think that is also questionable. She denies pain radiating into her legs. She is seen today because of the low back pain Patient Active Problem List Diagnosis Code Venous insufficiency I87.2 Spinal stenosis of lumbar region without neurogenic claudication M48.061 Cerebral palsy ([facility]) G80.9 HTN, goal below 140/90 I10 Chronic rhinitis J31.0 NG (nonalcoholic steatohepatitis) K75.81 Hyperglycemia R73.9 Constipation K59.00 Venous stasis dermatitis of both lower extremities I87.2 DDD (degenerative disc disease), lumbar M51.36 Moderate persistent asthma without complication J45.40 Primary osteoarthritis of right knee M17.11 Lymphedema I89.0 Type 2 diabetes mellitus with hemoglobin A1c goal of less than 7.0% ([facility]) E11.9 Vitamin D deficiency E55.9 Restrictive lung disease J98.4 Obesity, morbid (more than 100 lbs over ideal weight or BMI > 40) ([facility]) E66.01 Dyslipidemia, goal LDL below 70 E78.5 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 R39.81 Atypical chest pain R07.89 Acquired hypothyroidism E03.9 Chronic pain syndrome G89.4 MEDICATION USE AGREEMENT [id number] Cirrhosis of liver ([facility]) K74.60 THAD on CPAP G47.33, Z99.89 Wheelchair dependent Z99.3 Pancytopenia ([facility]) D61.818 Ambulatory dysfunction R26.2 DM type 2 with diabetic peripheral neuropathy ([facility]) E11.42 Insomnia G47.00 Recurrent major depressive disorder, in partial remission ([facility]) F33.41 Impaired mobility and ADLs Z74.09, Z78.9 Generalized weakness R53.1 Gastroesophageal reflux disease K21.9 History of Achilles tendon repair Z98.890 Anemia D64.9 Fibromyalgia M79.7 Achilles tendinitis, right leg M76.61 Thrombocytopenia ([facility]) D69.6 Iron deficiency anemia due to chronic blood loss D50.0 Splenomegaly R16.1 Esophagitis K20.90 Esophageal varices ([facility]) I85.00 Uncontrolled type 2 diabetes mellitus with hyperglycemia ([facility]) E11.65 Cardiomegaly I51.7 SOB (shortness of breath) R06.02 Melena K92.1 Vancomycin resistant enterococcus culture positive Z22.39 Urinary catheter dysfunction ([facility]) T83.018A Cyst of pancreas K86.2 Calculus of kidney N20.0 Acute on chronic heart failure with preserved ejection fraction (HFpEF) ([facility]) I50.33 Anginal chest pain at rest ([facility]) I20.8 Portal hypertensive gastropathy ([facility]) K76.6, K31.89 Lactic acidosis E87.2 Food insecurity Z59.41 Current Outpatient Medications Medication Sig Dispense Refill traMADol HCl 50 MG Oral Tablet (Ultram) Take 1 Tablet by mouth every 6 hours as needed (One tabtwice daily for low back pain as needed). 20 Tablet 0 CENTRUM SILVER PO TABS Take 1 Tab by mouth daily. 1 Tab 0 vitamin c (ASCORBIC ACID) 500 MG Tablet Take 500 mg by mouth daily. albuterol sulfate (PROVENTIL) (2.5 MG/3ML) 0.083% nebulizer solution Inhale 1 Vial via nebulizer every 6 hours as needed for Wheezing. 120 Vial 11 nystatin (NYSTOP) 546870 UNIT/GM powder Apply topically to affected area [...] a day. 60 Each 3 Dexcom G6 Heavy Equipment Operator/Paver Device Use as directed. To test blood [...] daily 100 Strip 3 OneTouch Delica Plus [id number] TESTING once daily 100 Each 3 BD [...] Tablet by mouth daily. 90 Tablet 2 No current facility-administered medications for this visit. Review of patient's allergies indicates: Allergen Reactions Adhesive Tape Itching Pcn [Penicillins] Rash Perflutren Protein A Microsph Definity-lower back pain Objective: BP 132/80 | Pulse 74 | Temp 35.7 C (96.3 F) (Tympanic) | Resp 16 | SpO2 94% Physical Exam: CONST: alert, pleasant, patient is in an electric scooter. Exam is limited HEAD: normocephalic, atraumatic NECK: supple, soft, no adenopathy CV: regular rate and rhythm, no murmur CHEST: clear to auscultation bilaterally, no rales or wheezing ABD: soft, non tender, non distended, no masses or hepatosplenomegaly MENTAL STATUS: no evidence of thought disorder, no delusional thought, no evidence of paranoia, thought is non-tangential. Back: On palpation she has tenderness in the midline in the low lumbar area. ASSESSMENT/PLAN: Lumbar pain on palpation (Primary)-I would be concerned about a lumbar compression fracture. She ishigh risk for a compression fracture given her immobility but then with the mechanism of injury, itis even more concerning for causing a compression fracture. X-ray lumbosacral spine. She is going to be referred to [facility] to have this done as she will need whole year lift to get onto the table for x-ray - XR L SPINE AP AND LATERAL pain control- told her that she could use acetaminophen 500 mg but limit to 2 tablets twice a day. She can use ibuprofen 800 mg but really no more than twice a day and I added tramadol 50 mg 1 tablettwice a day a total of 20 with no refills for severe pain. She and her were both instructedabout potential side effects of tramadol including constipation and confusion. If any signs of Um constipation, she ought to receive increase dosing of Colace and MiraLax. traMADol HCl 50 MG Oral Tablet (Ultram); Take 1 Tablet by mouth every 6 hours as needed (One tab twice daily for low back pain as needed). She can also do lidocaine 4% patch on 12 hours off 12 hours. Carter Chan MD documented in this encounter Nursing Notes * Josselin Gaspar LPN - 07/28/2021 8:31 AM EST The patient has been properly identified by confirmation of name and date of . Chief Complaint Patient presents with Emergency Department Follow-Up [facility] Monday for UTI Fell while she was there (candace lift sling slid out from under her and she landed in a chair)-now having back pain/tailbone pain from the jarring documented in this encounter Plan of Treatment Upcoming Encounters Date Type Specialty Care Team Description 07/28/2021 Office Visit Pharmacy [facility] [address] [place] [address] [id number] Medication Therapy Disease Management Clinic - Diabetes Management 07/29/2021 Office Visit Cardiology Quyen Canseco CRNP [address] [place] [address] 08/03/2021 Office Visit Family Medicine Torrie Arciniega PA-C [address] [place] [address] 08/03/2021 Immunization/Injecti on Hematology Oncology Nurse, Med 4 [address] [facility], [place] [address] 08/09/2021 Office Visit Gastroenterology Sergei Sanchez DO [address] [place] [address] 08/11/2021 Office Visit Endocrinology Alberta Duque PA-C [address] [place] [address] 09/09/2021 Imaging Radiology 09/16/2021 Telemedicine Gastroenterology Katherine Moore, RDN [address] [facility] [place] [address] 10/22/2021 Office Visit Sleep Disorders Love Francisco, DO [address] [place] [address] 01/04/2022 Office Visit Hematology Oncology Tono Sanchez MD [address] [place] [address] 03/24/2022 Office Visit Pulmonary Reynaldo Marquez MD [address] [place] [address] 06/24/2022 Office Visit Sleep Disorders Love Francisco, DO [address] [place] [address] Scheduled Orders Name Type Priority Associated Diagnoses Orde r Schedule XR L SPINE AP AND LATERAL Medical Imaging Routine Lumbar pain on palpation Ordered: 07/28/2021 Scheduled Procedures Name Priority Associated Diagnoses Date/Ti [...] of this encounter Implants Implanted Type Area Continuing Education Director Device Identifier Shelf Expiration Date Model / Serial / Lot Microtech Sure Clip Implanted:Qty: 2 on 06/03/2020 by Janis Hatch DO at OR [facility] Clip N/A: Colon 04/21/2022 [facility]-F-26-2 35-C-R / / [id number] documented as of this encounter Visit Diagnoses Diagnosis Lumbar pain on palpation- Primary documented in this encounter Advance Directives Documents on File Type Date Recorded Patient Concrete Stone Finisher 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 / LIVING WILL LIVING WILL AND [facility] POA [employer] 04/29/2021 12:00 AM TOM Elizabeth Tiansheng [facility] POA Advanced Directive 04/01/2021 1:14 PM [...] Bustos Spouse Emergency Contact Care Teams Paper Folding Machine Operator Relationship Specialty Start Date End Date Vanita Dunn MD [address] [place] [address] PCP - General Family Medicine 03/16/21 documented as of this encounter"
--- OUTSIDE RECORDS SUMMARY | 2023-05-10 20:03 | External Medical Summary | Summary of Care ---
Author Name Unknown Organization [place] [address] Care Team Providers Care Track Repairer Name Role Phone Vanita Dunn MD Primary Care Provid er Reason for Referral * Medication Prior Authorization - Pending Review Specialty Diagnoses / Procedures Referred By Evangelina jeter Referred To Contact Diagnoses Lumbar pain on palpation Carter Chan MD [address] [place] [address] Referral ID Status Reason Start Date Expiration Date V isits Requested Visits Authorized [id number] Pending Review 1 1 Reason for Visit * Reason Comments Emergency Department Follow-Up Encounter Details Date Type Department Care Team Description 07/28/2021 Office Visit [facility] [address] [place] [phone] Carter Chan MD [address] [place] [address] Lumbar pain on palpation* Allergies [...] 120 Vial 11 10/02/2019 Active nystatin (NYSTOP) 378461 UNIT/GM powder Apply topically to affected area [...] 60 Each 3 07/27/2020 Active Dexcom G6 Aeronautical Engineering Officer Device Use as directed. To test [...] once daily 100 Strip 3 10/29/2020 Active eRelevance CorporationTouch Delica Plus Inmtdd46Y TESTING once daily 100 Each 3 10/29/2020 [...] failure 04/08/2019 04/18/2019 Oxygen dependent 04/08/2019 04/18/2019 custodial resident 04/08/2019 05/02/2019 Fall 04/04/2019 05/05/2020 Sprain [...] pain 01/24/2012 01/17/2017 Genetic Sleep Disorder Research Other*[id number] 05/13/2011 04/07/2016 Obstructive sleep apnea 01/18/2011 12/27/19 [...] region without neurogenic claudication M48.061 Cerebral palsy ([facility]) G80.9 HTN, goal below 140/90 I10 Chronic rhinitis J31.0 NG (nonalcoholic steatohepatitis) K75.81 Hyperglycemia R73.9 Constipation K59.00 Venous stasis dermatitis of both lower extremities I87.2 DDD (degenerative disc disease), lumbar M51.36 Moderate persistent asthma without complication J45.40 Primary osteoarthritis of right knee M17.11 Lymphedema I89.0 Type 2 diabetes mellitus with hemoglobin A1c goal of less than 7.0% ([facility]) E11.9 Vitamin D deficiency E55.9 Restrictive lung disease J98.4 Obesity, morbid (more than 100 lbs over ideal weight or BMI > 40) ([facility]) E66.01 Dyslipidemia, goal LDL below 70 E78.5 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 R39.81 Atypical chest pain R07.89 Acquired hypothyroidism E03.9 Chronic pain syndrome G89.4 MEDICATION USE AGREEMENT [id number] Cirrhosis of liver ([facility]) K74.60 THAD on CPAP G47.33, Z99.89 Wheelchair dependent Z99.3 Pancytopenia ([facility]) D61.818 Ambulatory dysfunction R26.2 DM type 2 with diabetic peripheral neuropathy ([facility]) E11.42 Insomnia G47.00 Recurrent major depressive disorder, in partial remission ([facility]) F33.41 Impaired mobility and ADLs Z74.09, Z78.9 Generalized weakness R53.1 Gastroesophageal reflux disease K21.9 History of Achilles tendon repair Z98.890 Anemia D64.9 Fibromyalgia M79.7 Achilles tendinitis, right leg M76.61 Thrombocytopenia ([facility]) D69.6 Iron deficiency anemia due to chronic blood loss D50.0 Splenomegaly R16.1 Esophagitis K20.90 Esophageal varices ([facility]) I85.00 Uncontrolled type 2 diabetes mellitus with hyperglycemia ([facility]) E11.65 Cardiomegaly I51.7 SOB (shortness of breath) R06.02 Melena K92.1 Vancomycin resistant enterococcus culture positive Z22.39 Urinary catheter dysfunction ([facility]) T83.018A Cyst of pancreas K86.2 Calculus of kidney N20.0 Acute on chronic heart failure with preserved ejection fraction (HFpEF) ([facility]) I50.33 Anginal chest pain at rest ([facility]) I20.8 Portal hypertensive gastropathy ([facility]) K76.6, K31.89 Lactic acidosis E87.2 Food insecurity [...] for Wheezing. 120 Vial 11 nystatin (NYSTOP) 571642 UNIT/GM powder Apply topically to affected area [...] a day. 60 Each 3 Dexcom G6 Aeronautical Engineering Officer Device Use as directed. To test [...] daily 100 Strip 3 OneTouch Delica Plus Usscdd46D TESTING once daily 100 Each 3 BD [...] She is going to be referred to [facility] to have this done as she will [...] Complaint Patient presents with Emergency Department Follow-Up [facility] Monday for UTI Fell while she was there (candace lift sling slid out from under her and she landed in a chair)-now having back pain/tailbone pain from the jarring documented in this encounter Plan of Treatment Upcoming Encounters Date Type Specialty Care Team Description 07/28/2021 Office Visit Pharmacy [facility] [address] [place] [address] 07/29/2021 Office Visit Cardiology [facility]sec[facility] CRNP [address] [facility] [address] 08/03/2021 Office Visit Family Medicine Torrie Arciinega PA-C [address] [place] [address] 08/03/2021 Immunization/Injection Hematology Oncolog y Nurse, Med 4 [address] [facility] [address] 08/09/2021 Office Visit Gastroenterology Sergei Sanchez DO [address] [place], [place] [phone] 08/11/2021 Office Visit Endocrinology Alberta Duque PA-C [address] [place] [address] 09/09/2021 Imaging Radiology 09/16/2021 Telemedicine Gastroenterology Dershem, Katherine, RDN [address] [facility] [place] [address] 10/22/2021 Office Visit Sleep Disorders Love Francisco, DO [address] [place] [address] 01/04/2022 Office Visit Hematology Oncology Tono Sanchez MD [address] [place] [address] 03/24/2022 Office Visit Pulmonary [facility]aldo Mar[facility] [address] [facility] [address] 06/24/2022 Office Visit Sleep Disorders Love Francisco, DO [address] [place] [address] Scheduled Orders Name Type Priority Associated Diagnoses [...] of this encounter Implants Implanted Type Area Physical Therapy Nurse Device Identifier Shelf Expiration Date Model / Serial / Lot Microtech Sure Clip Implanted:Qty: 2 on 06/03/2020 by Janis Hatch DO at OR [facility] Clip N/A: Colon 04/21/2022 [facility]-F-26-2 35-C-R / / [id number] documented as of this encounter Visit Diagnoses Diagnosis Lumbar pain on palpation- Primary documented in this encounter Advance Directives Documents on File Type Date Recorded Patient Legal Librarian 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 WILL LIVING WILL AND HEALTH CARE POA [employer] 04/29/2021 12:00 AM TOM [employer] [facility] POA Advanced Directive 04/01/2021 [...] Agents on File Name Relationship Healthcare Agent [facility] p Communication Syed Bustos Spouse Emergency Contact Care Teams Track Repairer Relationship Specialty Start Date End Date Vanita Dunn MD [address] [place] [address] PCP - General Family Medicine 03/16/21 documented as of this encounter"
--- OUTSIDE RECORDS SUMMARY | 2023-05-10 20:03 | External Medical Summary | Summary of Care ---
Author Name Unknown Organization [facility] [place] [address] Care Team Providers Care Objective C Developer Name Role Phone Vanita Dunn MD Primary Care Provid er Reason for Visit * Reason Comments Dosage Adjustment In Person (Anticoag Cl inic) Diabetes Follow-Up Encounter Details Date Type Department Care Team Description 06/02/2021 Office Visit Pharmacy, [place] [address] [place] [address] [facility] [address] [place] [address] Type 2 diabetes mellitus with hemoglobin A1c goal of less than 7.0% (FORMERLY [facility])* Allergies Active Allergy Reactions Severity Noted Date [...] albuterol sulfate (PROVENTIL) (2.5 MG/3ML) 0.083% nebulizer solutionIndicatio ns:Pulmonary vascular congestion Inhale 1 Vial via nebulizer every 6 hours as needed for Wheezing. 120 Vial 11 0 Active nystatin (NYSTOP) 636187 UNIT/GM powder Apply topically to affected area 3 times a day. 60 g 1 0 Active Albuterol Sulfate (ALBUTEROL HFA) 108 (90 BASE) MCG/ACT inhalerIndication s:Intermittent asthma with reliever use up to twice [...] great toe 50 g 0 0 Active Ipratropium-Albut jayme 0.5-2.5 (3) MG/3ML Inhalation Solution (DUONEB)Indicatio ns:Moderate persistent asthma with acute exacerbation Inhale 3 mL via nebulizer 4 times a day. 3 mL 10 0 Active Additional Information Patient taking differently: 3 mL Nebulizer QID PRN, Shortness of Breath, Informant: Pharmacy, Reported on 02/04/2021 Fluticasone-Salme terol 250-50 MCG/DOSE Inhalation Aerosol Powder Breath Activated (Advair Diskus)Indication s:Moderate persistent asthma with acute exacerbation Inhale 1 Puff by mouth 2 times a day. 60 Each 3 0 Active Dexcom G6 Spray Painter Helper Device Use as directed. To test [...] Dx E11.9 1 Each 3 1 Active Lidocaine-Priloca ine 2.5-2.5 % External Cream (Emla)Indications :Iron deficiency anemia due to chronic blood loss,Pancytopenia (HCC) Apply topically to affected area as needed for Other (for port). APPLY TO SKIN OVER MEDIPORT & COVER 1HR PRIOR TO ACCESSING. 30 g 3 1 Active OneTouch Verio In Vitro Strip (Glucose Blood) TESTING once daily 100 Strip 3 1 Active OneTouch Delica Plus [id number] TESTING once daily 100 Each 3 1 Active BD Pen Needle Mini U/F 31G X 5 MM (Insulin Pen Needle)Indication s:Type 2 diabetes mellitus with hemoglobin A1c goal of less than 7.0% (HCC) Use to inject insulin four times daily; E11.42 400 Each 3 1 Active Escitalopram Oxalate 20 MG Oral Tablet (Lexapro)Indicati ons:Recurrent major depressive disorder, in partial remission (HCC) [...] every night at bedtime. 0 Active MEDICAL INSTRUCTIONSIndic ations:Iron deficiency anemia due to chronic blood loss [...] Active Trulicity 4.5 MG/0.5ML Subcutaneous Solution Pen-injector (Dulaglutide)Connie cations:Type 2 diabetes mellitus with hemoglobin A1c goal of less than 7.0% (HCC) Inject one pen (4.5 mg) under the skin once weekly 6 mL 3 1 Active Nadolol 40 MG Oral Tablet (Corgard)Indicati ons:HTN, goal below 140/90 Take 1 tablet daily. 90 Tab 1 1 Active Oxybutynin Chloride 5 MG Oral Tablet (Ditropan) TAKE 1 TABLET BY MOUTH TWICE DAILY 180 Tab 1 1 Active Ibuprofen 800 MG Oral Tablet (Motrin)Indicatio ns:Costochondral chest pain Take 1 Tab by mouth [...] SoloStar 100 UNIT/ML Subcutaneous Solution Pen-injector (Insulin Glargine)Indicati ons:Type 2 diabetes mellitus with hemoglobin A1c goal of less than 7.0% (HCC) inject 32 units under skin at bedtime 45 mL 3 1 Active Levothyroxine Sodium 200 MCG Oral Tablet (Levoxyl) TAKE 1 TABLET BY MOUTH ONCE DAILY 90 Tab 3 1 06/11/20 21 Discontinued Linzess 290 MCG Oral Capsule (linaCLOtide) TAKE 1 CAPSULE BY MOUTH ONCE DAILY BEFORE BREAKFAST 90 Cap 1 1 07/22/20 21 Discontinued traZODone HCl 50 MG Oral Tablet (Desyrel)Indicati ons:Sleep disturbances TAKE 1 TABLET BY MOUTH AT BEDTIME 90 Tab 2 1 06/11/20 21 Discontinued Fluticasone Propionate 50 MCG/ACT Nasal Suspension (Flonase)Indicati ons:Sinus congestion USE 2 SPRAYS IN EACH NOSTRIL ONCE DAILY as directed 16 g 5 1 06/11/20 21 Discontinued Pantoprazole Sodium 20 MG Oral Tablet Delayed Release (Protonix)Indicat ions:NAFLD (nonalcoholic fatty liver disease),Other cirrhosis of liver (HCC) TAKE 2 TABLETS BY MOUTH TWICE DAILY 180 Tab 1 1 06/11/20 21 Discontinued Lantus SoloStar 100 UNIT/ML Subcutaneous Solution Pen-injector (Insulin Glargine)Indicati ons:Type 2 diabetes mellitus with hemoglobin A1c goal of less than 7.0% (HCC) inject 28 units under skin at bedtime 30 mL 3 1 06/02/20 21 Discontinued Senna-Docusate Sodium 8.6-50 MG Oral Tablet Take 1 Tab by mouth daily. 90 Tab 0 1 07/26/20 21 Discontinued(Ref ill) Gabapentin 300 MG Oral Capsule (Neurontin) TAKE 1 CAPSULE BY MOUTH EVERY MORNING, 1 CAPSULE MIDDAY AND 2 CAPSULES IN THE EVENING. 360 Cap 1 1 06/04/20 21 Discontinued(Ref ill) metFORMIN HCl ER 500 MG Oral Tablet Extended Release 24 Hour (Glucophage XR) Take one tablet by mouth with a meal 90 Tab 3 1 06/02/20 21 Discontinued documented as of this encounter [...] 04/23/2020 05/05/2020 Cellulitis of right toe 04/18/2020 03/22/20 21 Cellulitis of right lower extremity 04/15/2020 [...] pain 01/24/2012 01/17/2017 Genetic Sleep Disorder Research Other*[id number] 05/13/2011 04/07/2016 Obstructive sleep apnea 01/18/2011 12/27/19 [...] encounter Progress Notes * Indira Hudson, [facility] - 06/02/2021 2:08 PM EDT Images from the original note [...] scale below that pt reports received while admitted DECREASE: Lantus pen, 28 units daily- patient has been injecting 32 units a day Metformin 1000mg, 1 tablet twice a day - not in pill box and has not been taking. Trulicity 4.5mg SQ weekly GFR >90 as [...] 10 units Lifestyle: Diet: unchanged Glucose Review/SMBG: Dexcom Clarity Hypoglycemia: Does your blood sugar go below 70 mg/dL? Yes, BG in the 50's yesterday - see below Hyperglycemia symptoms present: none Lab Results Component Value Date/Time HEMOGLOBIN A1C - [facility] 8.5 (H) 03/08/2021 03:40 AM HEMOGLOBIN A1C - [facility] 6.9 (H) 11/30/2020 11:32 AM HEMOGLOBIN A1C - [facility] 9.9 (H) 07/06/2020 05:24 AM HEMOGLOBIN A1C - [facility] 11.0 (H) 05/26/2020 04:44 AM HEMOGLOBIN A1C - [facility] 9.9 (H) 04/28/2020 04:37 PM Lab Results Component Value Date/Time ESTIMATED GLOMERULAR FILTRATION RATE - [facility] >90.0 06/01/2021 05:09 PM ESTIMATED GLOMERULAR FILTRATION RATE - [facility] >90.0 05/25/2021 11:17 AM ESTIMATED GLOMERULAR FILTRATION RATE - [facility] >90.0 05/22/2021 01:36 AM ESTIMATED GLOMERULAR FILTRATION RATE - [facility] [...] Component Value Date/Time CREATININE - [facility] 0.6 06/01/2021 05:09 PM CREATININE - [facility] 0.7 05/25/2021 11:17 AM CREATININE - [facility] 0.7 05/22/2021 01:36 AM CREATININE - [facility] 0.6 09/24/2020 05:16 PM CREATININE - [facility] 0.6 09/23/2020 02:36 PM CREATININE - [facility] 0.7 08/21/2020 04:35 PM No results found for: HEMOGLOBIN A1C POCT Lab Results Component Value Date/Time CREATININE - [facility] 0.6 06/01/2021 05:09 PM CREATININE - [facility] 0.7 05/25/2021 11:17 AM CREATININE - [facility] 0.7 05/22/2021 01:36 AM CREATININE - [facility] 0.6 09/24/2020 05:16 PM CREATININE - [facility] 0.6 09/23/2020 02:36 PM CREATININE - [facility] 0.7 08/21/2020 04:35 PM CREATININE, RANDOM URINE - [facility] 115 01/11/2019 01:29 PM CREATININE, RANDOM URINE - [facility] 81 02/03/2017 09:58 AM CREATININE, RANDOM URINE - [facility] 168 08/25/2015 01:56 PM CREATININE-OUTSIDE LAB 0.77 08/24/2018 CREATININE-OUTSIDE LAB 0.82 07/19/2018 CREATININE-OUTSIDE LAB 0.91 07/11/2018 HYPERTENSION: Patient on ACEi/ARB: No, BP at goal BP Readings from Last 3 Encounters: 06/01/21 122/84 05/26/21 142/80 05/25/21 116/72 HYPERLIPIDEMIA: Patient is taking moderate or high intensity statin: yes HEALTH MAINTENANCE REVIEW: Health Maintenance Due Topic Date Due DIABETES-EYE EXAM 06/12/2019 Dexa Scan Never done Zoster Vaccines (3 of 3) 06/23/2020 Influenza Vaccine (FLU shot) (1) 05/12/2021 ASSESSMENT & PLAN: ICD-10-CM 1. Type 2 diabetes mellitus with hemoglobin A1c goal of less than 7.0% (HCC) E11.9 Complicating Factors: cirrhosis; poor historian Presents with BG Readings Blood sugars uncontrolled. Patient at [facility] yesterday due to high BG and headache.Per discharge summary, "Patient is a 66-year-old female past history of cerebral palsy, chronic pain, liver cirrhosis, type 2 diabetes, dyslipidemia presenting for headache and hyperglycemia. Patientstates that last night her blood sugar was found to be 59. This morning she had a headache, and found her blood glucose to be 580. states he gave her 42 units of novolog with no improvement. Here, our blood glucose monitor showed her to be 279 while her dexcom." Patient's does not think Dexcom is working right. Checked BG in office. BG was 233. Dexcom read 245. Since patient had not eaten since breakfast and had been fasting the past 2 hours these readings should have been similar so seems Dexcom working apprporiately. Discussed BG vs SG and they verbalized understanding. They were instructed to contact Dexcom if any issues with Dexcom device. Medications Reviewed current regimen, patient seems to be generally adherent to regimen. manages meds and identifies the insulin via color (Novolog- orange; Lantus- juarez); sometimes he seems to get confused and other times he is adamant he is not confused by the dosing. Patient taking higher Lantus dose than previously discussed. Since BG so high will continue at this time. Patient has not been taking metformin and it is not in pill pack which patient brought to appt. Difficult to determine when stopped but seems during a previous admission? Note to resume on discharge but never resumed? Patient unable to verify previously since meds in pill pack. After discussion, patient would benefit from even low dose metformin to help with insulin sensitivity. Kidney function is good. Will restart metformin- will change to ER formulation and have patient take 500mg once a day. Due to cirrhosis, will keep at low dose at this time. Reviewed day by day Dexcom readings and patient BG fluctuating greatly (highs and lows). After detailed discussion seems patient had not been eating as much the last few days and if did not eat was still giving full dose of Novolog- this may have contributed to lows. Also seems patient overcorrecting lows resulting in high BGs- reviewed rule of 15s. Discussed if not eating to not give full dose of Novolog and only to use correction dose. They verbalized understanding. Patient reports drinking lots of milk- seems to be drinking about 2-3 glasses of 2% milk a day. Discussed how milk can affect BG. Unable to appropriately assess insulin doses at this time. Patient did not bring in dosing chart. Patient and overwhelmed today. Patient reports still has headache. Will bring back in 2 weeksand will re-evaluate. At next visit will give new CF chart for Novolog to help make adjustments easier. No change to insulin today and patient will work on behaviors discussed above. Patient to contact clinic with any issues. Patient is agreeable to SMBG via Dexcom Patient aware to contact clinic if any hypoglycemia before next visit. MEDICATION CHANGES: Diabetic Medications: Novolog, Inject 32 units before breakfast, 36 units before lunch, and 36 units before supper- plus scale below that pt reports received while admitted Lantus pen, 32 units daily- to reflect [...] 8 units 351+ 16 units 10 units HEALTH MAINTENANCE INTERVENTIONS: Eye Exam: due FOLLOW UP: Return to clinic in 2 weeks Next Office Visit: 06/21/2021 Scheduled Provider(s): [facility] [place] Indira Hudson [facility] Clinical Pharmacist - C Python Developer Medication Therapy Management Clinic 06/02/2021, 2:08 PM documented in this encounter Plan of Treatment Upcoming Encounters Date Type Specialty Care Team Description 07/28/2021 [place] [address] [place] [address] Medication Therapy Disease Management Clinic - Diabetes Management 07/29/2021 Office Visit Cardiology Quyen Canseco CRNP [address] [place] [address] 08/03/2021 Office Visit Family Medicine [facility] [place] [address] 08/03/2021 Immunization/Injecti on Hematology Oncology Nurse, [facility] [address] 08/09/2021 Office Visit [facility]enterology Sergei Sanchez P, DO [address] [facility] [place] [address] 08/11/2021 Office Visit Endocrinology Alberta Duque PA-C [address] [place], [place] [id number] 09/09/2021 Imaging Radiology 09/15/2021 Office Visit Pharmacy [facility] [address] [place] [address] 09/16/2021 Telemedicine Gastroenterology Katherine Moore, RDN [address] [place] [address] 10/22/2021 Office Visit Sleep Disorders Love Francisco, DO [address] [place] [address] 01/04/2022 Office Visit Hematology Oncology Tono Sanchez MD [address] [place] [address] 03/24/2022 Office Visit Pulmonary Reynaldo Marquez MD [address] [place] [address] 06/24/2022 Office Visit Sleep Disorders Love Francisco, DO [address] [facility] [place] [address] Scheduled Procedures Name Priority Associated Diagnoses Date/Ti [...] of this encounter Implants Implanted Type Area Civil Service Clerk Device Identifier Shelf Expiration Date Model / Serial / Lot Microtech Sure Clip Implanted:Qty: 2 on 06/03/2020 by Janis Hatch DO at OR [facility] Clip N/A: Colon 04/21/2022 [facility]-F-26-2 35-C-R / / [id number] documented as of this encounter Visit Diagnoses Diagnosis Type 2 diabetes mellitus with hemoglobin A1c goal of less than 7.0% (HCC)- Primary documented in this encounter Advance Directives Documents on File Type Date Recorded Patient Gluer And Slicer Hand 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 AND HEALTH CARE POA Power of Supervisor Plastics 04/29/2021 12:00 AM TOM R OF DIRECTOR REGULATORY COMPLIANCE [facility] CARE POA Advanced Directive 04/01/2021 1:14 [...] Syed Bustos Spouse Emergency Contact Care Teams Objective C Developer Relationship Specialty Start Date End Date Vanita Dunn MD [address] [place] [address] PCP - General Family Medicine 03/16/21 documented as of this encounter
--- OUTSIDE RECORDS SUMMARY | 2023-05-10 20:04 | External Medical Summary | Summary of Care ---
Author Name Unknown Organization [place] [address] Care Team Providers Care Bracer Name Role Phone Vanita Dunn MD Primary Care Provid er Reason for Visit * Reason Onset Date Comments Medication Refill 07/26/2021 Senna Encounter Details Date Type Department Care Team Description 07/26/2021 Refill Radiation Oncology, [facility] [address] [place], [place] [id number] Alia Mccurdy, RN Constipation, unspecified constipation type* Allergies Active Allergy Reactions Severity Noted Date Comments Adhesive Tape Itching 04/29/2020 Penicillins Rash 02/12/2008 Perflutren Protein A Microsph 2019 Definity-lower back pain documented as of this encounter (statuses as of 07/26/2021) Medications Medication Sig Dispensed Refills Start Date [...] 120 Vial 11 10/02/2019 Active nystatin (NYSTOP) 319952 UNIT/GM powder Apply topically to affected area [...] great toe 50 g 0 05/26/2020 Active Ipratropium-Albuter ol 0.5-2.5 (3) MG/3ML Inhalation [...] 60 Each 3 07/27/2020 Active Dexcom G6 Cylinder Die Machine Helper Device Use as directed. To test [...] Strip 3 10/29/2020 Active OneTouch Delica Plus [id number] TESTING once daily 100 Each 10/29/2020 Active BD Pen Needle Mini U/F 31G X 5 MM (Insulin Pen Needle)Indications: Type 2 diabetes mellitus with hemoglobin A1c goal of less than 7.0% (FORMERLY [facility]) Use to inject insulin four times daily; [...] [facility]) Inject one pen (4.5 mg) under the [...] mouth daily. 90 Tablet 2 07/26/2021 Active Senna-Docusate Sodium 8.6-50 MG Oral Tablet Take 1 Tab by mouth daily. 90 Tab 0 04/29/2021 Discontinu ed(Refill) documented as of this encounter (statuses as of 07/26/2021) Active Problems Problem Noted Date Food insecurity [...] as of this encounter (statuses as of 07/26/2021) Resolved Problems Problem Noted Date Resolved Date AMS (altered mental status) 02/04/202101/10 Acute blood loss anemia 07/06/2020 12/01/19 21 Bacteremia 07/04/2020 11/30/2020 Diabetic ulcer of right great toe 05/25/2020 04/05/2021 Pain of upper abdomen 04/23/2020 05/05/2020 Cellulitis of right toe 04/18/2020 12/01/19 21 Cellulitis of right lower extremity 04/15/2020 11/30/2020 History of kidney stones 04/08/2019 08/25/2 020 History of delivery 04/08/2019 History of [...] pain 01/24/2012 01/17/2017 Genetic Sleep Disorder Research Other*[id number] 05/13/2011 04/07/2016 Obstructive sleep apnea 01/18/2011 12/27/19 [...] as of this encounter (statuses as of 07/26/2021) Immunizations Name Administration Dates Next Due COVID-19 [...] encounter Miscellaneous Notes * Telephone Encounter - Clemencia Ellison MD - 07/26/2021 8:41 AM EST Signed Prescriptions: Disp Refills Senna-Docusate Sodium 8.6-50 MG Oral Hcspby55 Tab*2 Sig: Take 1 Tablet by mouth daily. Authorizing Provider: CLEMENCIA ELLISON * Telephone Encounter - Alia Mccurdy RN - 07/26/2021 7:59 AM EST Authorization for medication useage called to indicated pharmacy per Dr. Ellison due to Shaina Bustos. Last Office/Telemedicine Visit: No Previous Office/Telemedicine Visits Next Office Visit: No Future Appointments If no future appointments scheduled, and last appointment is greater than a year ago, please schedule patient for a follow-up appointment Last date the medication was ordered: 04/26/21 Pharmacy: [facility] [id number] Is this request for a controlled substance?No Urine Drug Screen:No results found. However, due to the size of the patient record, not all encounters were searched. Please check Results Review for a complete set of results. Patient Phone Numbers Labs: Lab Results Component Value Date/Time CREAT 0.9 06/16/2021 09:00 PM CREAT 0.6 09/24/2020 05:16 PM POTASSIUM 4.8 06/16/2021 09:00 PM POTASSIUM 4.0 09/24/2020 05:16 PM TSH 0.02 (L) 06/10/2021 02:45 PM TSH 0.69 07/14/2020 04:24 PM LDLCALC 43 04/05/2019 06:40 AM LDLDIRECT 46 02/21/2020 11:43 AM ALT 29 06/16/2021 09:00 PM ALT 23 08/21/2020 04:35 PM HGBA1C 7.4 (H) 06/10/2021 02:45 PM HGBA1C 9.9 (H) 07/06/2020 05:24 AM documented in this encounter Plan of Treatment Upcoming Encounters Date Type Specialty Care Team Description 07/26/2021 Office Visit Cardiology Quyen Canseco CRNP [address] [place] [address] 07/27/2021 Office Visit Gastroenterology Lyssa Stout CRNP [address] [place] [address] 07/28/2021 [address] [address] 08/03/2021 Office Visit Family Medicine Torrie Arciniega PA-C [address] [place] [address] 08/03/2021 Immunization/Injection Hematology Oncolog y Nurse, Med [address] [place] [address] 08/09/2021 Office Visit Gastroenterology Sergei Sanchez, DO [address] [place] [address] 08/11/2021 Office Visit Endocrinology Alberta Duque PA-C [address] [place] [address] 09/09/2021 Imaging Radiology 09/16/2021 Telemedicine Gastroenterology Katherine Moore RDN [address] [place], [place] [phone] 10/22/2021 Office Visit Sleep Disorders Love Francisco, DO [address] [facility] [place] [address] 01/04/2022 Office Visit Hematology Oncology Tono Sanchez MD [address] [place] [address] 03/24/2022 Office Visit Pulmonary Reynaldo Marquez MD [address] [place] [address] 06/24/2022 Office Visit Sleep Disorders Love Francisco DO [address] [facility] [place] [address] Scheduled Procedures Name Priority Associated Diagnoses Date/Ti [...] this encounter Implants Implanted Type Area Superintendent Plant Device Identifier Shelf Expiration Date Model / Serial / Lot Microtech Sure Clip Implanted:Qty: 2 on 06/03/2020 by Janis Hatch DO at OR [facility] Clip N/A: Colon 04/21/2022 [facility]-F-26-2 35-C-R / / [id number] documented as of this encounter Visit Diagnoses Diagnosis Constipation, unspecified constipation type- Primary documented in this encounter Advance Directives Documents on File Type Date Recorded Patient Beer Runner 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 AND HEALTH CARE POA Power of Supervisor Area 04/29/2021 12:00 AM TOM R OF [facility] POA Advanced Directive 04/01/2021 [...] Syed Bustos Spouse Emergency Contact Care Teams Bracer Relationship Specialty Start Date End Date Vanita Dunn MD [address] [facility] [place] [address] PCP - General Family Medicine 03/16/21 documented as of this encounter
--- OUTSIDE RECORDS SUMMARY | 2023-05-10 20:04 | External Medical Summary | Summary of Care ---
Author Name Unknown Organization [place] [address] Care Team Providers Care Hardwood Floor Finisher Name Role Phone Vanita Dunn MD Primary Care Provid er Reason for Visit * Reason Comments Follow Up * Evaluate & Treat - Unlimited Visits (Within 10 days (routine)) - Closed Specialty Diagnoses / Procedures Referred By Contac t Referred To Contact Pulmonary Diseases / Pulmonary Diagnoses Orthopnea Gregor Cerna MD [address] [place] [address] Referral ID Status Reason Start Date Expiration Date V isits Requested Visits Authorized [id number] Closed Specialty Services Required 04/08/2021 1 1 Encounter Details Date Type Department Care Team Description 07/22/2021 Office Visit Pulmonary Medicine, [facility] [address] [place] [address] Reynaldo Marquez MD [address] [facility] [address] SOB (shortness of breath)*; Restrictive lung [...] as of this encounter (statuses as of 07/23/2021) Medications Medication Sig Dispensed Refills Start Date [...] 120 Vial 11 10/02/2019 Active nystatin (NYSTOP) 068457 UNIT/GM powder Apply topically to affected area [...] 60 Each 3 07/27/2020 Active Dexcom G6 Housing Officer Device Use as directed. To test [...] TO ACCESSING. 30 g 3 10/09/2020 Active e-Nicotine TechnologiesTouch Verio In Vitro Strip (Glucose Blood) TESTING once daily 100 Strip 3 10/29/2020 Active OneTouch Delica Plus [id number] TESTING once daily 100 Each 10/29/2020 Active [...] once weekly 6 mL 3 04/23/2021 Active Senna-Docusate Sodium 8.6-50 MG Oral Tablet Take 1 Tab by mouth daily. 90 Tab 0 04/29/2021 Active Nadolol 40 MG Oral Tablet (Corgard)Indications [...] BEFORE BREAKFAST 90 Capsule 1 07/22/2021 Active documented as of this encounter (statuses as of 07/23/2021) Active Problems Problem Noted Date Food insecurity [...] as of this encounter (statuses as of 07/23/2021) Resolved Problems Problem Noted Date Resolved Date AMS (altered mental status) 02/04/2021 052 05/2021 Acute blood loss anemia 07/06/2020 12/01/19 [...] pain 01/24/2012 01/17/2017 Genetic Sleep Disorder Research Other*[id number] 05/13/2011 04/07/2016 Obstructive sleep apnea 01/18/2011 12/27/19 [...] as of this encounter (statuses as of 07/23/2021) Immunizations Name Administration Dates Next Due COVID-19 [...] 01/24/2012 Chronic constipation Chronic hypoxemic respiratory failure ([facility]) 04/08/2019 Chronic pain 03/27/2012 Cirrhosis of liver ([facility]) 11/20/2017 DDD (degenerative disc disease), [...] of less than 7.0% ([facility]) 09/26/2013 ICD-10 update of inactive term Past Surgical History: Procedure Laterality Date BONE DEBRIDEMENT, FIRST 20 CM2 Right 04/16/2020 DEBRIDEMENT SKIN SUBCUTANEOUS TISSUE MUSCLE AND BONE performed by Josh Vazquez MD at [facility] DELIVERY 04/20/1982 COLONOSCOPY 04/21/2009 repeat in 10 years COLONOSCOPY, DIAGNOSTIC (RECTUM) 10/04/2016 normal bx, repeat 10 yrs/[facility] COLONOSCOPY, DIAGNOSTIC (RECTUM) N/A 06/03/2020 internal hemorrhoids/biopsies show adenomatous polyps/recall 5 years/COLONOSCOPY FLEXIBLE PROXIMAL DIAGNOSTIC performed by Janis Hatch DO at [facility] COLONOSCOPY, DIAGNOSTIC (RECTUM) 03/17/2020 poor prep / [facility] DENTAL SURGERY PROCEDURE NEC wisdom teeth x 4 DILATION AND CURETTAGE (D&C) EGD, FLEXIBLE, DIAGNOSTIC 10/04/2016 gastritis/[facility] EGD, FLEXIBLE, DIAGNOSTIC 01/11/2018 eso varices, retained food, repeat 1 yr/[facility] EGD, FLEXIBLE, DIAGNOSTIC N/A 06/03/2020 severe erosive esophagitis/non-bleeding grade II esophageal varices/gastritis/biopsies show inflammatory changes/repeat 3-4 months/ESOPHAGOGASTRODUODENOSCOPY (EGD), FLEXIBLE, TRANSORAL, DIAGNOSTIC per formed by Janis Hatch DO at [facility] EGD, FLEXIBLE, DIAGNOSTIC 11/27/2019 eso varices, portal hypertensive gastropathy, gastritis / [facility] EGD, FLEXIBLE, DIAGNOSTIC N/A 08/05/2020 large amount of food in stomach/repeat 1.5 years/ESOPHAGOGASTRODUODENOSCOPY (EGD), FLEXIBLE, TRANSORAL, DIAGNOSTIC performed by Janis Hatch DO at [facility] EGD, FLEXIBLE, DIAGNOSTIC N/A 03/10/2021 ESOPHAGOGASTRODUODENOSCOPY (EGD), FLEXIBLE, TRANSORAL, DIAGNOSTIC performed by Kris Blankenship MD at ENDOSCOPY [facility] IR VENOUS ACCESS MEDIPORT 10/05/2020 PELVIS/HIP JOINT [...] for Wheezing. 120 Vial 11 nystatin (NYSTOP) 237618 UNIT/GM powder Apply topically to affected area [...] a day. 60 Each 3 Dexcom G6 Housing Officer Device Use as directed. To test [...] daily 100 Strip 3 OneTouch Delica Plus [id number] TESTING once daily 100 Each 3 BD [...] weakness from CP and inability toclear sputum. 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 She does not have COPD -QUALIFICATION CRITERIA FOR BIPAP-NIV IN THE HOME RESTRICTIVE THORACIC DISORDERS Documentation in the patients medical record of a Neuromuscular Disease or Severe Thoracic Cage Disorder and COPD does not contribute significantly to the patients pulmonary limitation. One Of The Followin. An arterial blood gas PaCO2>45mmHg, performed while awake with the patient breathing prescribed FiO2, or 2. Nocturnal Oximetry demonstrating SpO2<88% for >5 minutes (minimal recording time 2 hours) during sleep with the Patient breathing the prescribed FiO2, or 3. For a Progressive Neuromuscular Disease only, either 1. Maximal Inspiratory Pressure<59hqT0Y or 2. Forced Vital Capacity<50% of predicted. Follow up in 6 months, sooner if needed All the patient;s and her 's questions and concerns were addressed to their apparent satisfaction. I spent more than 50% of the 25 minute visit counseling and coordinating care. Reynaldo Marquez MD Pulmonary Medicine, [address] [address] documented in this encounter Nursing Notes * [...] Cardiology Quyen Canseco CRNP [address] [place] [address] 07/27/2021 Office Visit Gastroenterology Lyssa Stout CRNP [address] [place] [address] 07/28/2021 Office Visit Pharmacy [facility] [address] [place] [address] 08/03/2021 Office Visit Family Medicine Torrie Arciniega PA-C [address] [facility] [address] 08/03/2021 Immunization/Injection Hematology Oncolog y Nurse, Med 4 [address] [place] [address] 08/09/2021 Office Visit Gastroenterology Sergei Sanchez, DO [address] [place] [address] 08/11/2021 Office Visit Endocrinology Alberta Duque PA-C [address], [place] [id number] 09/09/2021 Imaging Radiology 09/16/2021 Telemedicine Gastroenterology Katherine Moore RDN [address] [place], [place] [id number] 10/22/2021 Office Visit [facility] Francisco[facility] [address] 01/04/2022 Office Visit Hematology Oncology Tono Sanchez MD 200 [facility] [place] [address] 03/24/2022 Office Visit Pulmonary Reynaldo Marquez MD [address] [place] [address] 06/24/2022 Office Visit Sleep Disorders Love Francisco, 132 [facility] [place] [address] Scheduled Orders Name Type Priority Associated Diagnoses Orde r Schedule BLOOD GAS, ARTERIAL Lab Routine Restrictive lung disease Expected: 08/21/2021, Expires: 08/21/2022 SPIROMETRY B/A BRONCHODILATOR Procedures Routine Restrictive lung disease Expected: 07/23/2021, Expires: 08/21/2022 LUNG VOLUMES (PLETHYSMOGRAPHY) Procedures Routine Restrictive lung disease Expected: 07/23/2021, Expires: 08/21/2022 DIFFUSION CAPACITY (DLCO) Procedures Routine Restrictive lung disease Expected: 07/23/2021, Expires: 08/21/2022 IGE Lab Routine Moderate persistent asthma without complication Expected: 07/22/2021 (Approximate), Expires: 08/21/2022 [facility]ERGEN [facility] IGE PROFILE Lab Routine Moderate persistent asthma without complication Expected: 07/22/2021 (Approximate), Expires: 08/21/2022 RESPIRATORY MUSCLE PRESSURES (BUGLE PRESSURES) [...] this encounter Implants Implanted Type Area Rotary Engine Assembler Device Identifier Shelf Expiration Date Model / Serial / Lot Microtech Sure Clip Implanted:Qty: 2 on 06/03/2020 by Janis Hatch, at [facility] Clip N/A: Colon 04/21/2022 [facility]-F-26-2 35-C-R / / [id number] documented as of this encounter Visit Diagnoses [...] Documents on File Type Date Recorded Patient Furniture Upholsterer 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 LIVING WILL AND HEALTH CARE POA Power [employer] 04/29/2021 12:00 AM TOM Elizabeth Evermind [facility] POA Advanced Directive 04/01/2021 1:14 [...] Syed Bustos Spouse Emergency Contact Care Teams Hardwood Floor Finisher Relationship Specialty Start Date End Date Vanita Dunn MD [address] [place] [address] PCP - General Family Medicine 03/16/21 documented as of this encounter"
--- OUTSIDE RECORDS SUMMARY | 2023-05-10 20:04 | External Medical Summary | Summary of Care ---
Author Name Unknown Organization [facility] [place] [address] Care Team Providers Care Welt Trimming Machine Operator Name Role Phone Vanita Dunn MD Primary Care Provid er Encounter Details Date Type Department Care Team Description 07/25/2021 Scan Encounter [facility] [address] [place] [address] Vanita Dunn MD [address] [place] [address] <No scans attached> Allergies Active [...] 120 Vial 11 10/02/2019 Active nystatin (NYSTOP) 348518 UNIT/GM powder Apply topically to affected area [...] 60 Each 3 07/27/2020 Active Dexcom G6 Sustainable Agriculture Faculty Device Use as directed. To test blood [...] Strip 3 10/29/2020 Active OneTouch Delica Plus [id number] TESTING once daily 100 Each 3 10/29/2020 Active BD Pen Needle Mini U/F 31G X 5 MM (Insulin Pen Needle)Indications:T ype 2 diabetes mellitus with hemoglobin A1c goal of less than 7.0% ([facility]) Use to inject insulin four times daily; E11.42 400 Each 3 12/05/2020 Active Escitalopram Oxalate 20 MG Oral Tablet (Lexapro)Indications :Recurrent major depressive disorder, in partial remission ([facility]) TAKE 1 TABLET BY MOUTH ONCE DAILY [...] less than 7.0% ([facility]) Inject one pen (4.5 mg) under the [...] pain 01/24/2012 01/17/2017 Genetic Sleep Disorder Research Other*[id number] 05/13/2011 04/07/2016 Obstructive sleep apnea 01/18/2011 12/27/19 [...] Quyen Canseco CRNP [address] [place] [address] 07/27/2021 Office Visit Gastroenterology Lyssa Stout CRNP [address] [place] [address] 07/28/2021 Office Visit Pharmacy [facility] [address] [place] [address] 08/03/2021 Office Visit Family Medicine Torrie Arciniega PA-C [address] [place] [address] 08/03/2021 Immunization/Injection Hematology Oncolog y Nurse, Med [address] [facility], [place] [address] 08/09/2021 Office Visit Gastroenterology Sergei Sanchez DO [address] [place], [place] [phone] 08/11/2021 Office Visit Endocrinology Alberta Duque PA-C [address] [place] [address] 09/09/2021 Imaging Radiology 09/16/2021 Telemedicine Gastroenterology Katherine Moore, RDN [address] [facility] [place] [address] 10/22/2021 Office Visit Sleep Disorders Love Francisco, DO [address] [place] [address] 01/04/2022 Office Visit Hematology Oncology Tono Sanchez MD [address] [facility] [place] [address] 03/24/2022 Office Visit Pulmonary Reynaldo Marquez MD [address] [facility], [place] [address] 06/24/2022 Office Visit Sleep Disorders Love Francisco, DO [address] [place] [address] Scheduled Procedures Name Priority Associated Diagnoses Date/Ti [...] this encounter Implants Implanted Type Area Front Of House Manager Device Identifier Shelf Expiration Date Model / Serial / Lot Microtech Sure Clip Implanted:Qty: 2 on 06/03/2020 by Janis Hatch DO at OR [facility] Clip N/A: Colon 04/21/2022 [facility]-F-26-2 35-C-R / / [id number] documented as of this encounter Advance Directives Documents on File Type Date Recorded Patient Marketing Rep 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 DIRECTIVE / LIVING WILL LIVING WILL AND [facility] POA Power [facility] 04/29/2021 12:00 AM TOM R [facility] [...] File Name Relationship Healthcare Agent [facility] Communication Syed Bustos Spouse Emergency Contact Care Teams Welt Trimming Machine Operator Relationship Specialty Start Date End Date Vanita Dunn MD [address] [place] [address] PCP - General Family Medicine 03/16/21 documented as of this encounter
--- OUTSIDE RECORDS SUMMARY | 2023-05-10 20:04 | External Medical Summary | Summary of Care ---
Author Name Unknown Organization [place] [address] Care Team Providers Care Wheat Inspector Name Role Phone Vanita Dunn MD Primary Care Provid er Reason for Visit * Reason Onset Date Comments Forms Request 07/23/2021 Encounter Details Date Type Department Care Team Description 07/23/2021 Telephone Pulmonary Medicine, [facility] 132 [facility] [place] [address] Reynaldo Marquez MD [address] [facility] [place] [address] Forms Request Allergies Active Allergy Reactions Severity Noted Date Comments Adhesive Tape Itching 04/29/2020 Penicillins Rash 02/12/2008 Perflutren Protein A Microsph 2019 Definity-lower back pain documented as of this encounter (statuses as of 07/27/2021) Medications Medication Sig Dispensed Refills Start Date [...] 120 Vial 11 10/02/2019 Active nystatin (NYSTOP) 844127 UNIT/GM powder Apply topically to affected area [...] 60 Each 3 07/27/2020 Active Dexcom G6 Stores Despatch Hand Device Use as directed. To test [...] Strip 3 10/29/2020 Active OneTouch Delica Plus Vrgngh91S TESTING once daily 100 Each 3 10/29/2020 Active BD Pen Needle Mini U/F 31G X 5 MM (Insulin Pen Needle)Indications: Type 2 diabetes mellitus with hemoglobin A1c goal of less than 7.0% ([facility]) Use to inject insulin four times daily; E11.42 400 Each 3 12/05/2020 Active Escitalopram Oxalate 20 MG Oral Tablet (Lexapro)Indication s:Recurrent major depressive disorder, in partial remission ([facility]) TAKE 1 TABLET BY MOUTH ONCE DAILY [...] [facility]) Inject one pen (4.5 mg) under the [...] 07/22/2021 Active Senna-Docusate Sodium 8.6-50 MG Oral Tablet Take 1 Tab by mouth daily. 90 Tab 0 04/29/2021 Discontinu ed(Refill) documented as of this encounter (statuses as of 07/27/2021) Active Problems Problem Noted Date Food insecurity [...] as of this encounter (statuses as of 07/27/2021) Resolved Problems Problem Noted Date Resolved Date [...] failure 04/08/2019 04/18/2019 Oxygen dependent 04/08/2019 04/18/2019 halfway resident 04/08/2019 05/02/2019 Fall 04/04/2019 05/05/2020 Sprain [...] pain 01/24/2012 01/17/2017 Genetic Sleep Disorder Research Other*[id number] 05/13/2011 04/07/2016 Obstructive sleep apnea 01/18/2011 12/27/19 [...] as of this encounter (statuses as of 07/27/2021) Immunizations Name Administration Dates Next Due COVID-19 [...] Telephone Encounter - Emmy Guzman LPN - 07/27/2021 12:54 PM EST New order faxed to [facility]. * Telephone Encounter - Reynaldo Marquez MD - 07/27/2021 12:49 PM EST Updated script made. * Telephone Encounter - Emmy Guzman LPN - 07/27/2021 11:41 AM EST Spoke with Lili Jacobo she states the following for this pt [11:40 AM] Mariana Jacobo We can really only recommend what's in our policy/competency. Starting inspiratory pressure [id number] 1-2 seconds. Expiratory pressure 49psZ5Y for 2-3 seconds. Pause 20-30 seconds between breaths for 6-10 cycles. * Telephone Encounter - Reynaldo Marquez MD - 07/23/2021 3:14 PM EST Please send to our respiratory therapists at [facility] for recs. Then I will rewrite the script. * Telephone Encounter - Emmy Guzman LPN - 07/23/2021 2:46 PM EST [facility] states that order for cough assit needs Pressure for exhale Seconds for exhale Pressure for inhale Seconds for exhale Pauses between exhale/inhale Sequences (ex: 3 seq of 5) frequency (ex bid/prn) * Telephone Encounter - Emmy Guzman LPN - 07/23/2021 12:50 PM EST OVN sent with confirmation * Telephone Encounter - Reynaldo Marquez MD - 07/23/2021 12:36 PM EST Office note addended. Needs cough assist due to weakness from CP causing inability to clear secretions. Not able to use flutter due to weakness. * Telephone Encounter - Emmy Guzman LPN - 07/23/2021 11:56 AM EST [facility] calling stating that they need clarification in OVN from 07-22-2021. It needs to state the reason for a cough assist. Please advise and addended OVN documented in this encounter Plan of Treatment Upcoming Encounters Date Type Specialty Care Team Description 07/27/2021 Office Visit Gastroenterology Lyssa Stout CRNP [address] [facility] [place] [address] 07/28/2021 Office Visit [facility]acy [facility] [address] [place] [address] [place] [address] 07/29/2021 Office Visit Cardiology [facility] [address] 08/03/2021 Office Visit Family Medicine Torrie Arciniega [facility]-C [facility] [address] 08/03/2021 Immunization/Injection Hematology Oncolog y Nurse, Med 4 200 [place] [address] 08/09/2021 Office Visit Gastroenterology Sergei Sanchez, DO [address] [place] [address] 08/11/2021 Office Visit Endocrinology Alberta Duque PA-C [address] [place] [address] 09/09/2021 Imaging Radiology 09/16/2021 Telemedicine Gastroenterology Oscar Katherine, [place] [address] [place], [place] [address] 10/22/2021 Office Visit Sleep Disorders Love Francisco, DO [address] [facility] [address] 01/04/2022 Office Visit Hematology Oncology Tono Sanchez MD 200 [facility], [place] [address] 03/24/2022 Office Visit Pulmonary Reynaldo Marquez MD [address] [place] [address] 06/24/2022 Office Visit Sleep Disorders Love Francisco, DO [address] [facility] [address] Scheduled Procedures Name Priority Associated Diagnoses Date/Ti [...] this encounter Implants Implanted Type Area Commercial Technician Device Identifier Shelf Expiration Date Model / Serial / Lot Microtech Sure Clip Implanted:Qty: 2 on 06/03/2020 by Janis Hatch DO at OR [facility] Clip N/A: Colon 04/21/2022 [facility]-F-26-2 35-C-R / / [id number] documented as of this encounter Visit Diagnoses Diagnosis Other cerebral palsy (HCC)- Primary Restrictive lung disease Other diseases of lung, not elsewhere classified documented in this encounter Advance Directives Documents on File Type Date Recorded 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
--- OUTSIDE RECORDS SUMMARY | 2023-05-10 20:05 | External Medical Summary | Summary of Care ---
Author Name Unknown Organization [facility] Address [place] [address] Care Team Providers Care Electrician'S Helper Name Role Phone Vanita Dunn MD Primary Care Provid er Encounter Details Date Type Department Care Team Description 07/16/2021 Scan Encounter Family Practice [facility] [address] [facility] [place] [address] Roel Cedeno DO [address] [facility] [place] [address] <No scans attached> Allergies Active Allergy Reactions Severity Noted Date Comments Adhesive Tape Itching 04/29/2020 Penicillins Rash 02/12/2008 Perflutren Protein A Microsph 2019 Definity-lower back pain documented as of this encounter (statuses as of 07/19/2021) Medications Medication Sig Dispensed Refills Start Date End Date Status CENTRUM SILVER PO TABS Take 1 Tab by mouth daily. 1 Tab 0 05/25/2012 Active vitamin c (ASCORBIC ACID) 500 MG Tablet Take 500 mg by mouth daily. 0 Active albuterol sulfate (PROVENTIL) (2.5 MG/3ML) 0.083% nebulizer solutionIndications:P ulmonary vascular congestion Inhale 1 Vial via nebulizer every 6 hours as needed for Wheezing. 120 Vial 11 10/02/2019 Active nystatin (NYSTOP) 912500 UNIT/GM powder Apply topically to affected area 3 times a day. 60 g 1 10/16/2019 Active Albuterol Sulfate (ALBUTEROL HFA) 108 (90 BASE) MCG/ACT inhalerIndications:In termittent asthma with reliever use up to twice [...] great toe 50 g 0 05/26/2020 Active Ipratropium-Albuterol 0.5-2.5 (3) MG/3ML Inhalation Solution (DUONEB)Indications:M oderate persistent asthma with acute exacerbation Inhale 3 mL via nebulizer 4 times a day. 3 mL 10 07/27/2020 Active Additional Information Patient taking differently: 3 mL Nebulizer QID PRN, Shortness of Breath, Informant: Pharmacy, Reported on 02/04/2021 Fluticasone-Salmetero l 250-50 MCG/DOSE Inhalation Aerosol Powder Breath Activated (Advair Diskus)Indications:Mo derate persistent asthma with acute exacerbation Inhale 1 Puff by mouth 2 times a day. 60 Each 3 07/27/2020 Active Dexcom G6 Hand Stone Polisher Device Use as directed. To test [...] 09/14/2020 Active Lidocaine-Prilocaine 2.5-2.5 % External Cream (Emla)Indications:Iro n deficiency anemia due to chronic blood loss,Pancytopenia (HCC) Apply topically to affected area as needed for Other (for port). APPLY TO SKIN OVER MEDIPORT & COVER 1HR PRIOR TO ACCESSING. 30 g 3 10/09/2020 Active OneTouch Verio In Vitro Strip (Glucose Blood) TESTING once daily 100 Strip 3 10/29/2020 Active OneTouch Delica Plus [id number] TESTING once daily 100 Each 10/29/2020 Active Linzess 290 MCG Oral Capsule (linaCLOtide) TAKE 1 CAPSULE BY MOUTH ONCE DAILY BEFORE BREAKFAST 90 Cap 1 11/29/2020 Active BD Pen Needle Mini U/F 31G [...] 04/29/2021 Active Nadolol 40 MG Oral Tablet (Corgard)Indications: HTN, goal below 140/90 Take 1 tablet daily. 90 Tab 1 05/11/2021 Active Oxybutynin Chloride 5 MG Oral Tablet (Ditropan) TAKE 1 TABLET BY MOUTH TWICE DAILY 180 Tab 1 05/13/2021 Active Ibuprofen 800 MG Oral Tablet (Motrin)Indications:C ostochondral chest pain Take 1 Tab by mouth [...] SoloStar 100 UNIT/ML Subcutaneous Solution Pen-injector (Insulin Glargine)Indications: Type 2 diabetes mellitus with hemoglobin A1c [...] 10 MEQ Oral Tablet Extended ReleaseIndications:Hy pokalemia TAKE 1 TABLET BY MOUTH ONCE DAILY [...] Active Tamsulosin HCl 0.4 MG Oral Capsule (Flomax)Indications:A cute bilateral low back pain without sciatica,Bilateral renal colic Take 1 Cap by mouth daily. 30 Cap 0 06/14/2021 Active documented as of this encounter (statuses as of 07/19/2021) Active Problems Problem Noted Date Food insecurity [...] osteoarthritis of right knee 09/2012 Lymphedema 03/11/2013 Intermittent asthma with reliever use up to twice per week 01/09/2013 Venous stasis dermatitis of both lower e xtremities 05/07/2012 NG (nonalcoholic steatohepatitis) 04/12 Hyperglycemia 05/02/2012 Constipation 05/02/2012 HTN, goal below 140/90 03/27/2012 Chronic rhinitis 03/27/2012 Cerebral palsy 01/24/2012 Spinal stenosis of lumbar region without neurogenic claudication 12/27/2010 Venous insufficiency 01/09/2009 DDD (degenerative disc disease), lumbar Dyslipidemia, goal LDL below 70 documented as of this encounter (statuses as of 07/19/2021) Resolved Problems Problem Noted Date Resolved Date [...] pain 01/24/2012 01/17/2017 Genetic Sleep Disorder Research Other*[id number] 05/13/2011 04/07/2016 Obstructive sleep apnea 01/18/2011 12/27/19 [...] as of this encounter (statuses as of 07/19/2021) Immunizations Name Administration Dates Next Due COVID-19 [...] drink = 0.6 oz pur e alcohol) Sex Assigned at Date Recorded Female 04/22/2020 [...] Encounters Date Type Specialty Care Team Description 07/22/2021 Office Visit Pulmonary Reynaldo Marquez MD [address] [place] [id number] 07/26/2021 Office Visit Cardiology Quyen Canseco CRNP [address] [facility] [place] [address] 07/27/2021 Office Visit Gastroenterology Lyssa Stout CRNP 132 [facility] [place] [address] 07/28/2021 Office Visit Pharmacy [facility] [address] [place] [address] 08/03/2021 Immunization/Injection [facility] Oncolog [facility] [address] 08/09/2021 Office Visit Gastroenterology Sergei Sanchez DO [address] [place], [place] [phone] 08/11/2021 Office Visit Endocrinology Alberta Duque PA-C [address] [place] [address] 09/09/2021 Imaging Radiology 09/16/2021 Telemedicine Gastroenterology Katherine Moore RDN [address] [place] [address] 01/04/2022 Office Visit Hematology Oncology Tono Sanchez MD 200 [place] [address] 06/24/2022 Office Visit Sleep Disorders Love Francisco, DO [address] [place] [address] Scheduled Procedures Name Priority Associated Diagnoses Date/Ti me ESOPHAGOGASTRODUODENOSCOPY ( EGD), FLEXIBLE, TRANSORAL, DIAGNOSTIC Recall Esophagitis COLONOSCOPY FLEXIBLE PROXIMAL DIAGNOSTIC Recall History of colonic polyps Health Maintenance Due Date Last Done Comments DIABETES-EYE EXAM 06/12/2019 06/12/2018, , 06/12/2018, Additional history exists Dexa Scan 2020 Zoster Vaccines (3 of 3) 06/23/2020 04/28/2020, 11/11 BREAST CANCER SCREENING DISCUSSION YEARLY AGES 40-75 [...] Tdap) 05/01/2027 05/01/2017, 05/26/2008 COVID-19 Vaccine Completed 12/21/2020, 11/23/2020 Influenza Vaccine (FLU shot) Completed , 06/01/2020, 06/05/2019, Additional history exists MENINGOCOCCAL (MENACTRA/MENVEO) Aged Out No longer eligible based on patient's age to complete this topic documented as of this encounter Implants Implanted Type Area Receiver Dispatcher Device Identifier Shelf Expiration Date Model / Serial / Lot Microtech Sure Clip Implanted:Qty: 2 on 06/03/2020 by Janis Hatch DO at OR [facility] Clip N/A: Colon 04/21/2022 [facility]-F-26-2 35-C-R / / [id number] documented as of this encounter Advance Directives Documents on File Type Date Recorded Patient Display Coordinator 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 AND HEALTH CARE POA Power of Shank Pinner 04/29/2021 12:00 AM TOM R OF [facility] POA Advanced Directive 04/01/2021 1:14 [...] Syed Bustos Spouse Emergency Contact Care Teams Electrician'S Helper Relationship Specialty Start Date End Date Vanita Dunn MD [address] [place] [address] PCP - General Family Medicine 03/16/21 documented as of this encounter
--- OUTSIDE RECORDS SUMMARY | 2023-05-10 20:05 | External Medical Summary | Summary of Care ---
Author Name Unknown Organization [place] [address] Care Team Providers Care Spray Gun Repairer Helper Name Role Phone Vanita Dunn MD Primary Care Provid er Reason for Visit * Reason Onset Date Comments Order Request 07/22/2021 NIV Encounter Details Date Type Department Care Team Description 07/22/2021 Telephone Pulmonary Medicine, [facility] [address] [facility] [place] [address] Reynaldo Marquez MD [facility] [place] [address] Order Request (NIV) Allergies Active Allergy Reactions Severity Noted Date Comments Adhesive Tape Itching 04/29/2020 Penicillins Rash 02/12/2008 Perflutren Protein A Microsph 2019 Definity-lower back pain documented as of this encounter (statuses as of 07/22/2021) Medications Medication Sig Dispensed Refills Start Date [...] 120 Vial 11 10/02/2019 Active nystatin (NYSTOP) 800089 UNIT/GM powder Apply topically to affected area [...] 60 Each 3 07/27/2020 Active Dexcom G6 Communications Coordinator Device Use as directed. To test [...] Strip 3 10/29/2020 Active OneTouch Delica Plus [id number] TESTING once daily 100 Each 3 10/29/2020 Active BD Pen Needle Mini U/F 31G X 5 MM (Insulin Pen Needle)Indications:T ype 2 diabetes mellitus with hemoglobin A1c goal of less than 7.0% ([facility]) Use to inject insulin four times daily; E11.42 400 Each 3 12/05/2020 Active Escitalopram Oxalate 20 MG Oral Tablet (Lexapro)Indications :Recurrent major depressive disorder, in partial remission ([facility]) TAKE 1 TABLET BY MOUTH ONCE [...] goal of less than 7.0% ([facility]) Inject one pen (4.5 mg) under [...] goal of less than 7.0% ([facility]) inject 32 units under skin at [...] as of this encounter (statuses as of 07/22/2021) Active Problems Problem Noted Date Food insecurity [...] as of this encounter (statuses as of 07/22/2021) Resolved Problems Problem Noted Date Resolved Date [...] failure 04/08/2019 04/18/2019 Oxygen dependent 04/08/2019 04/18/2019 intermediate resident 04/08/2019 05/02/2019 Fall 04/04/2019 05/05/2020 Sprain [...] pain 01/24/2012 01/17/2017 Genetic Sleep Disorder Research Other*[id number] 05/13/2011 04/07/2016 Obstructive sleep apnea 01/18/2011 12/27/19 [...] as of this encounter (statuses as of 07/22/2021) Immunizations Name Administration Dates Next Due COVID-19 [...] Cardiology Quyen Canseco CRNP [address] [place] [address] 07/27/2021 Office Visit Gastroenterology Lyssa Stout CRNP [address] [place] [address] 07/28/2021 Office Visit Pharmacy [facility] [address] [place], [place] [address] [address] 08/03/2021 Office Visit Family Medicine Torrie Arciniega PA-C [address] [place] [address] 08/03/2021 Immunization/Injection Hematology Oncolog y Nurse, Med 4 200 [place] [address] 08/09/2021 Office Visit Gastroenterology Sergei Sanchez, DO [address] [place], [place] [phone] 08/11/2021 Office Visit Endocrinology Alberta Duque PA-C [address] [place] [address] 09/09/2021 Imaging Radiology 09/16/2021 Telemedicine Gastroenterology Oscar Katherine, [place] [address] [place], [place] [phone] 10/22/2021 Office Visit [facility] Francisco[facility] [address] 01/04/2022 Office Visit Hematology Oncology Tono Sanchez MD 200 [place] [address] 03/24/2022 Office Visit Pulmonary Reynaldo Marquez MD [address] [place] [place] [address] 06/24/2022 Office Visit Sleep Disorders Love Francisco, DO 132 [facility] [place] [address] Scheduled Procedures Name Priority Associated Diagnoses Date/Ti [...] of this encounter Implants Implanted Type Area Mainframe Programmer Analyst Device Identifier Shelf Expiration Date Model / Serial / Lot Microtech Sure Clip Implanted:Qty: 2 on 06/03/2020 by Janis Hatch DO at OR [facility] Clip N/A: Colon 04/21/2022 [facility]-F-26-2 35-C-R / / [id number] documented as of this encounter Advance Directives Documents on File Type Date Recorded Patient Punchboard Assembler 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 WILL AND HEALTH CARE POA Power of Glassblower 04/29/2021 12:00 AM TOM R OF PATIENT SCHEDULER HEALTH CARE POA Advanced Directive 04/01/2021 1:14 [...] on File Name Relationship Healthcare Agent [facility] p Communication Syed Bustos Spouse Emergency Contact Care Teams Spray Gun Repairer Helper Relationship Specialty Start Date End Date Vanita Dunn MD [address] [place] [address] PCP - General Family Medicine 03/16/21 documented as of this encounter
--- OUTSIDE RECORDS SUMMARY | 2023-05-10 20:05 | External Medical Summary | Summary of Care ---
Author Name Unknown Organization [place] [address] Care Team Providers Care Grinder Chipper Name Role Phone Vanita Dunn MD Primary Care Provid er Reason for Visit * Reason Comments Follow Up * Evaluate & Treat - Unlimited Visits (Within 10 days (routine)) - Closed Specialty Diagnoses / Procedures Referred By Contac t Referred To Contact Pulmonary Diseases / Pulmonary Diagnoses Orthopnea Gregor Cerna MD [address] [place] [address] Referral ID Status Reason Start Date Expiration Date V isits Requested Visits Authorized [id number] Closed Specialty Services Required 04/08/2021 1 1 Encounter Details Date Type Department Care Team Description 07/22/2021 Office Visit Pulmonary Medicine, [facility] [address] [place] [address] Reynaldo Marquez [facility] [address] [facility] [address] SOB (shortness of breath)*; Restrictive lung [...] 120 Vial 11 10/02/2019 Active nystatin (NYSTOP) 360018 UNIT/GM powder Apply topically to affected area [...] 60 Each 3 07/27/2020 Active Dexcom G6 Slot Service Specialist Device Use as directed. To [...] TO ACCESSING. 30 g 3 10/09/2020 Active Bathrooms.comTouch Verio In Vitro Strip (Glucose Blood) TESTING once daily 100 Strip 3 10/29/2020 Active OneTouch Delica Plus [id number] TESTING once daily 100 Each 10/29/2020 Active [...] pain 01/24/2012 01/17/2017 Genetic Sleep Disorder Research Other*[id number] 05/13/2011 04/07/2016 Obstructive sleep apnea 01/18/2011 12/27/19 [...] 01/24/2012 Chronic constipation Chronic hypoxemic respiratory failure ([facility] [...] of less than 7.0% ([facility]) 09/26/2013 ICD-10 update of inactive term Past [...] DO at OR [facility] COLONOSCOPY, DIAGNOSTIC (RECTUM) 03/17/2020 poor prep [...] formed by Janis Hatch DO at OR [facility] EGD, FLEXIBLE, DIAGNOSTIC 11/27/2019 eso varices, portal hypertensive gastropathy, gastritis / [facility] EGD, FLEXIBLE, DIAGNOSTIC N/A 08/05/2020 large amount of food in stomach/repeat 1.5 years/ESOPHAGOGASTRODUODENOSCOPY (EGD), FLEXIBLE, TRANSORAL, DIAGNOSTIC performed by Janis Hatch DO at OR [facility] EGD, FLEXIBLE, DIAGNOSTIC N/A 03/10/2021 ESOPHAGOGASTRODUODENOSCOPY (EGD), FLEXIBLE, TRANSORAL, DIAGNOSTIC performed by Kris Blankenship MD at ENDOSCOPY [facility] IR VENOUS ACCESS MEDIPORT 10/05/2020 PELVIS/HIP JOINT [...] for Wheezing. 120 Vial 11 nystatin (NYSTOP) 524330 UNIT/GM powder Apply topically to affected area [...] a day. 60 Each 3 Dexcom G6 Slot Service Specialist Device Use as directed. To [...] daily 100 Strip 3 OneTouch Delica Plus [id number] TESTING once daily 100 Each 3 BD [...] done today. -script written for cough assist device -okay to change patient from BiPAP to [...] Neuromuscular Disease only, either 1. Maximal Inspiratory Pressure<62caW0H or 2. Forced Vital Capacity<50% of predicted. Follow up in 6 months, sooner if needed All the patient;s and her 's questions and concerns were addressed to their apparent satisfaction. I spent more than 50% of the 25 minute visit counseling and coordinating care. Reynaldo Marquez MD Pulmonary Medicine, [address] [address] documented in this encounter Nursing Notes * [...] Cardiology Quyen Canseco CRNP [address] [place] [address] 07/27/2021 Office Visit Gastroenterology Lyssa Stout CRNP [address] [place] [address] 07/28/2021 [address] [facility] [address] [address] 08/03/2021 Office Visit Family Medicine Torrie Arciniega PA-C 132 [facility] [place] [address] 08/03/2021 Immunization/Injection Hematology Oncolog y Nurse, Med 4 200 [place] [address] 08/09/2021 Office Visit Gastroenterology Sergei Sanchez, DO [address] [place] [address] 08/11/2021 Office Visit Endocrinology Alberta Duque PA-C [address] [place] [address] 09/09/2021 Imaging Radiology 09/16/2021 Telemedicine Gastroenterology Katherine Moore, SAMANTHA [address] [place], [place] [address] 10/22/2021 Office Visit Sleep Disorders Love Francisco DO [address] [place] [address] 01/04/2022 Office Visit Hematology Oncology Tono Sanchez MD 200 [place] [address] 03/24/2022 Office Visit Pulmonary Reynaldo Marquez MD [address] [place] [address] 06/24/2022 Office Visit Sleep Disorders Love Francisco DO [address] [place] [address] Scheduled Orders Name Type Priority Associated Diagnoses [...] complication Expected: 07/22/2021 (Approximate), Expires: 08/21/2022 [facility] Lab Routine Moderate persistent asthma [...] of this encounter Implants Implanted Type Area Internet Merchant Device Identifier Shelf Expiration Date Model / Serial / Lot Microtech Sure Clip Implanted:Qty: 2 on 06/03/2020 by Janis Hatch DO at OR [facility] Clip N/A: Colon 04/21/2022 [facility]-F-26-2 35-C-R / / [id number] documented as of this encounter Visit Diagnoses [...] LIVING WILL AND HEALTH CARE POA Power Gimahhot 04/29/2021 12:00 AM TOM Johnson Exavio [facility] POA Advanced Directive 04/01/2021 1:14 [...] File Name Relationship Healthcare Agent [facility] p Communication Syed Bustos Spouse Emergency Contact Care Teams Grinder Chipper Relationship Specialty Start Date End Date Vanita Dunn MD [address] [place] [address] PCP - General Family Medicine 03/16/21 documented as of this encounter"
--- OUTSIDE RECORDS SUMMARY | 2023-05-10 20:06 | External Medical Summary | Summary of Care ---
Author Name Unknown Organization [facility] Address [place] [address] Care Team Providers Care Autism Teacher Name Role Phone Vanita Dunn MD Primary Care Provid er Encounter Details Date Type Department Care Team Description 07/13/2021 Scan Encounter [facility] [address] [place] [address] Vanita Dunn MD [address] [place] [address] <No scans attached> Allergies Active Allergy Reactions Severity Noted Date Comments Adhesive Tape Itching 04/29/2020 Penicillins Rash 02/12/2008 Perflutren Protein A Microsph 2019 Definity-lower back pain documented as of this encounter (statuses as of 07/15/2021) Medications Medication Sig Dispensed Refills Start Date [...] 120 Vial 11 10/02/2019 Active nystatin (NYSTOP) 210492 UNIT/GM powder Apply topically to affected area [...] 60 Each 3 07/27/2020 Active Dexcom G6 Senior Receptionist Device Use as directed. To test blood [...] Strip 3 10/29/2020 Active OneTouch Delica Plus [id number] TESTING once daily 100 Each 3 10/29/2020 Active Linzess 290 MCG Oral Capsule [...] as of this encounter (statuses as of 07/15/2021) Active Problems Problem Noted Date Food insecurity [...] as of this encounter (statuses as of 07/15/2021) Resolved Problems Problem Noted Date Resolved Date [...] failure 04/08/2019 04/18/2019 Oxygen dependent 04/08/2019 04/18/2019 [facility] resident 04/08/2019 05/02/2019 Fall 04/04/2019 05/05/2020 Sprain of right ankle 04/04/2019 05/05/2020 Preop examination 02/21/2019 04/04/2019 History of recent fall 12/21/2018 0 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 Sometimes true Within the past 12 months, t he [...] Encounters Date Type Specialty Care Team Description 07/16/2021 Office Visit Family Medicine Roel Cedeno DO [address] [place] [address] [phone] 07/16/2021 Office Visit Pharmacy [address] [address] [phone] 07/22/2021 Office Visit Pulmonary Reynaldo Marquez MD [address] [facility] [place] [address] [phone] 07/26/2021 Office Visit Cardiology Quyen Canseco CRNP [address] [place] [address] [phone] 07/27/2021 Office Visit Gastroenterology Lyssa Stout CRNP [address] [place] [address] [phone] 08/03/2021 Immunization/Injection Hematology Oncolog y Nurse, Med 4 [address] [facility] [address] [phone] 08/09/2021 Office Visit Gastroenterology Sergei Sanchez DO [address], [place] [id number] 08/11/2021 Office Visit Endocrinology Alberta Duque PA-C [address] [place] [address] [phone] 09/09/2021 Imaging Radiology 09/16/2021 Telemedicine Gastroenterology Katherine Moore RDN [address] [facility] [address] [phone] 01/04/2022 Office Visit Hematology Oncology Tono Sanchez MD 200 [place] [address] [phone] 06/24/2022 Office Visit Sleep Disorders Love Francisco, DO [address] [facility] [place] [address] [phone] Health Maintenance Due Date Last Done Comments [...] history exists DTaP,Tdap,and Td Vaccines (3 - Td) 05/01/2027 05/01/2017, 05/26/2008 COVID-19 Vaccine Completed 12/21/2020, 11/23/2020 Influenza Vaccine (FLU shot) Completed , 06/01/2020, 06/05/2019, Additional history exists MENINGOCOCCAL (MENACTRA/MENVEO) Aged Out No longer eligible based on patient's age to complete this topic documented as of this encounter Implants Implanted Type Area Event Coordinator Device Identifier Shelf Expiration Date Model / Serial / Lot Microtech Sure Clip Implanted:Qty: 2 on 06/03/2020 by aJnis Hatch DO at OR [facility] Clip N/A: Colon 04/21/2022 [facility]-F-26-2 35-C-R / / [id number] documented as of this encounter Advance Directives Documents on File Type Date Recorded Patient Evaporator Supervisor Expl anation Advance Directives and Living Will 04/29/2021 12:00 AM ADVANCE DIRECTIVE / LIVING WILL LIVING WILL AND HEALTH CARE POA Power of Hand Riveter 04/29/2021 12:00 AM TOM R OF SENIOR CORE JAVA DEVELOPER HEALTH CARE POA Advanced Directive service a kerri default Advanced Directive Advanced Directive Advanced Directive Advanced Directive Advanced Directive Advanced Directive Advanced Directive Advanced Directive Advanced Directive Advanced Directive Advanced Directive Advanced Directive Advanced Directive Advanced Directive 04/15/2020 12:36 PM Advanced Directive 04/23/2020 8:54 AM Advanced Directive Advanced Directive 05/05/2020 11:52 AM Advanced Directive Advanced Directive 05/22/2020 7:36 AM Advanced Directive Advanced Directive 05/26/2020 3:57 PM Advanced Directive Advanced Directive Advanced Directive Advanced Directive Advanced Directive Advanced Directive Advanced Directive Advanced Directive Advanced Directive Advanced Directive Advanced Directive Advanced Directive Advanced Directive Advanced Directive Advanced Directive Advanced Directive Advanced Directive Advanced Directive Advanced Directive Advanced Directive Advanced Directive Advanced Directive Advanced Directive Advanced Directive Advanced Directive Advanced Directive 07/06/2020 10:11 AM Advanced Directive Advanced Directive Advanced Directive 07/15/2020 9:57 AM Advanced Directive Advanced Directive Advanced Directive Advanced Directive Advanced Directive Advanced Directive Advanced Directive Advanced Directive 07/21/2020 3:01 PM Advanced Directive Advanced Directive Advanced Directive Advanced [...] Directive Advanced Directive Advanced Directive Advanced Directive 02/01/2021 3:33 PM Advanced Directive Advanced Directive 02/04/2021 1:39 AM Advanced Directive Advanced Directive Advanced Directive Advanced Directive Advanced Directive Advanced Directive Advanced Directive Advanced Directive Advanced Directive Advanced Directive 02/18/2021 4:34 PM Advanced Directive Advanced Directive Advanced Directive Advanced Directive Advanced Directive Advanced Directive Advanced Directive Advanced Directive Advanced Directive Advanced Directive Advanced Directive Advanced Directive Advanced Directive Advanced Directive Advanced Directive Advanced Directive Advanced Directive Advanced Directive 03/09/2021 11:29 AM Advanced Directive Advanced Directive Advanced Directive Advanced Directive Advanced Directive Advanced Directive Advanced Directive Advanced Directive 03/22/2021 1:46 PM Advanced Directive Advanced Directive Advanced Directive Advanced Directive 04/01/2021 1:14 PM Advanced Directive Advanced Directive Advanced Directive Advanced [...] Directive Advanced Directive Advanced Directive Advanced Directive Latest Code Status on File Code Status [...]
--- OUTSIDE RECORDS SUMMARY | 2023-05-10 20:06 | External Medical Summary | Summary of Care ---
Author Name Unknown Organization [facility] Address [place] [address] Care Team Providers Care Housekeeping Supervisor Hotel Name Role Phone Vanita Dunn MD Primary Care Provid er Encounter Details Date Type Department Care Team Description 07/15/2021 Orders Only [facility] [address] [place] [address] Vanita Dunn MD [address] [place] [address] Allergies Active Allergy Reactions Severity [...] 120 Vial 11 10/02/2019 Active nystatin (NYSTOP) 215579 UNIT/GM powder Apply topically to affected area [...] 60 Each 3 07/27/2020 Active Dexcom G6 Car Lot Attendant Device Use as directed. To test [...] Strip 3 10/29/2020 Active OneTouch Delica Plus [id number] TESTING once daily 100 Each 10/29/2020 Active [...] pain 01/24/2012 01/17/2017 Genetic Sleep Disorder Research Other*[id number] 05/13/2011 04/07/2016 Obstructive sleep apnea 01/18/2011 12/27/19 [...] Medicine Roel Cedeno DO [address] [place] [address] [address] [phone] 07/16/2021 Office Visit Pharmacy [address] [id number] 07/22/2021 Office Visit Pulmonary Reynaldo Marquez MD [address] [facility] [address] [phone] 07/26/2021 Office Visit Cardiology Quyen Canseco CRNP [address] [place] [address] [phone] 07/27/2021 Office Visit [facility]ology [facility] [place] [address] [phone] 08/03/2021 Immunization/Injection Hematology Oncolog y Nurse, Med 4 [address] [place] [address] [phone] 08/09/2021 Office Visit Gastroenterology Sergei Sanchez DO [address] [place], [place] [id number] 08/11/2021 Office Visit Endocrinology Alberta Duque PA-C [address] [place] [address] [phone] 09/09/2021 Imaging Radiology 09/16/2021 Telemedicine Gastroenterology Oscar Katherine, RDN [address] [place] [address] [phone] 01/04/2022 Office Visit Hematology Oncology Tono Sanchez MD [address] [place] [address] [phone] 06/24/2022 Office Visit Sleep Disorders Love Francisco, DO [address] [facility] [place] [place] [address] [phone] Health Maintenance Due Date Last Done Comments [...] of this encounter Implants Implanted Type Area Cream Maker Device Identifier Shelf Expiration Date Model / Serial / Lot Microtech Sure Clip Implanted:Qty: 2 on 06/03/2020 by Janis Hatch DO at OR 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
--- OUTSIDE RECORDS SUMMARY | 2023-05-10 20:06 | External Medical Summary | Summary of Care ---
Author Name Unknown Organization [facility] Address [place] [address] Care Team Providers Care Acid Mixer Name Role Phone Vanita Dunn MD Primary Care Provid er Reason for Visit * Reason Comments Emergency Department Follow-Up vertigo. Negative for Covid Encounter Details Date Type Department Care Team Description 07/16/2021 Office Visit [facility] [address] [facility] [place] [address] Roel Evans DO [address] [facility] [id number] Vertigo*; Diplopia; Type 2 diabetes mellitus with hemoglobin A1c goal of less than 7.0% ([facility]); HTN, goal below 140/90; Other cerebral palsy ([facility]) Allergies Active Allergy Reactions Severity Noted Date Comments Adhesive Tape Itching 04/29/2020 Penicillins Rash 02/12/2008 Perflutren Protein A Microsph 2019 Definity-lower back pain documented as of this encounter (statuses as of 07/16/2021) Medications Medication Sig Dispensed Refills Start Date [...] 120 Vial 11 10/02/2019 Active nystatin (NYSTOP) 929705 UNIT/GM powder Apply topically to affected area [...] 60 Each 3 07/27/2020 Active Dexcom G6 Upholstery Tech Device Use as directed. To test blood [...] Strip 3 10/29/2020 Active OneTouch Delica Plus [id number] TESTING once daily 100 Each 3 10/29/2020 [...] as of this encounter (statuses as of 07/16/2021) Active Problems Problem Noted Date Food insecurity [...] as of this encounter (statuses as of 07/16/2021) Resolved Problems Problem Noted Date Resolved Date [...] pain 01/24/2012 01/17/2017 Genetic Sleep Disorder Research Other*[id number] 05/13/2011 04/07/2016 Obstructive sleep apnea 01/18/2011 12/27/19 [...] as of this encounter (statuses as of 07/16/2021) Immunizations Name Administration Dates Next Due COVID-19 [...] Reading Time Taken Comments Blood Pressure 120/78 07/16/2021 11:10 AM EDT Pulse 88 07/16/2021 11:10 AM EDT Temperature 35.9 C (96.7 F) 07/16/2021 11:10 AM E DT Respiratory Rate - - Oxygen Saturation - [...] as of this encounter Progress Notes * Roel Evans DO - 07/16/2021 11:32 AM EDT Subjective Shaina Bustos is a 66 year old female that presents for Emergency Department Follow-Up (vertigo. Negative for Covid) HPI: Patient is a 66-year-old female here with in attendance. Patient has history of cerebral palsy, bilateral lower extremity paralysis,, hypertension, diabetes mellitus type 2. Patient complains of vertigo with diplopia with increased clumsiness using right hand. Patient uses a power wheel chair and is having increased difficulty staring her power wheelchair. Patient complains of fluctuating blood glucose levels with intermittent hypoglycemic episodes. Patient is having increased difficulty administering insulin due to right hand clumsiness. Patient denies chest pain palpitations or shortness of breath. Patient denies cough or sputum. Patient denies abdominal pain nausea vomiting diarrhea. Patient recently evaluated in the ER on 07/13/2021. Patient had chest x-ray and CT scan of abdomen which were normal. Review of systems otherwise negative Objective BP 120/78 | Pulse 88 | Temp 35.9 C (96.7 F) (Tympanic) There is no height or weight on file to calculate BMI. BP Readings from Last 3 Encounters: 07/16/21 120/78 07/10/21 124/84 07/06/21 100/65 Wt Readings from Last 3 Encounters: 07/10/21 127 kg (280 lb) 06/16/21 117.9 kg (260 lb) 06/10/21 117.9 kg (260 lb) Physical exam General: alert, lethargic, patient slumped to right. Head: Normocephalic, No masses, lesions, tenderness or abnormalities Eye Exam: PERRLA, Conjunctiva are pink and non-injected, sclera clear Ears: External ears normal, Canals clear, TM's Normal Nose: no mucosal erythema, no mucosal edema, no purulent discharge Oropharynx: no exudate, no erythema, lips, buccal mucosa, and tongue normal and mucous membranes are moist Neck: supple, no adenopathy, no bruits, thyroid normal size, non-tender, without nodularity Lymph: no palpable lymphadenopathy Heart: regular rate & rhythm, no murmurs and no gallops Lungs: chest symmetric with normal AP diameter, no chest deformities noted, no chest wall tenderness, lungs clear to auscultation Pulses: carotid=2/4 w/o bruits Abdomen: abdomen soft, non-tender, obese, normal bowel sounds and no masses or organomegaly Back: back symmetric, no curvature, no costovertebral angle tenderness Extremities: Plus 2/4 bilateral lower extremity edema, bilateral lower extremity paralysis decreased motor strength left upper extremity Neuro Exam: alert & oriented x 3 with fluent speech, bilateral lower extremity paralysis, decreased motor strength left upper extremity cxstev-oc-czbo dysmetria bilateral Skin: skin color, texture, turgor are normal, no rashes or significant lesions The following labs were reviewed today: None Assessment and plan Vertigo Rule out CVA. Patient sent to ER Diplopia Rule out CVA Patient sent to ER Type 2 diabetes mellitus with hemoglobin A1c goal of less than 7.0% (HCC) Insulin adjustment as per [facility] pharmacy HTN, goal below 140/90 Continue present medication Other cerebral palsy (HCC) Stable Follow up Total time today including reviewing chart before the visit, pertinent labs, imaging reports, face to face time, and documentation time was 40 minutes. The above was discussed and understanding was expressed. Roel Evans DO documented in this encounter Plan of Treatment Upcoming Encounters Date Type Specialty Care Team Description 07/22/2021 Office Visit Pulmonary [facility]aldo [facility] [address] [facility] [address] [phone] 07/26/2021 Office Visit Cardiology Quyen Canseco CRNP [address] [place] [address] [phone] 07/27/2021 Office Visit Gastroenterology Lyssa Stout CRNP 132 [place] [address] [phone] 07/28/2021 Office Visit Pharmacy [address] [address] [phone] 08/03/2021 Immunization/Injection Hematology Oncolog y Nurse, Med 4 [address] [facility] [place] [address] [phone] 08/09/2021 Office Visit Gastroenterology Sergei Sanchez DO [address] [place], [place] [id number] 08/11/2021 Office Visit Endocrinology Alberta Duque PA-C [address], [place] [address] 09/09/2021 Imaging Radiology 09/16/2021 Telemedicine Gastroenterology Katherine Moore RDN [address] [place], [place] [address] 01/04/2022 Office Visit Hematology Oncology Tono Sanchez MD 200 [place] [address] [phone] 06/24/2022 Office Visit Sleep Disorders Love Francisco, DO 132 [facility] [place] [address] [phone] Health Maintenance Due Date Last Done Comments [...] of this encounter Implants Implanted Type Area Map Maker Device Identifier Shelf Expiration Date Model / Serial / Lot Microtech Sure Clip Implanted:Qty: 2 on 06/03/2020 by Janis Hatch DO at OR [facility] Clip N/A: Colon 04/21/2022 [facility]-F-26-2 35-C-R / / [id number] documented as of this encounter Visit Diagnoses Diagnosis Vertigo- Primary Dizziness and giddiness Diplopia Type 2 diabetes mellitus with hemoglobin A1c goal of less than 7.0% (HCC) HTN, goal below 140/90 Unspecified essential hypertension Other cerebral palsy (HCC) documented in this encounter Advance Directives Documents on File Type Date Recorded Patient Roof Foreman Expl anation Advance Directives and Living Will 04/29/2021 12:00 AM ADVANCE DIRECTIVE / LIVING WILL LIVING WILL AND HEALTH CARE POA Power of Contract Technical Writer 04/29/2021 12:00 AM TOM R OF BASEBALL GLOVE SHAPER HEALTH CARE POA Advanced 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 [place] Communication Syed Bustos Spouse Emergency Contact "
--- OUTSIDE RECORDS SUMMARY | 2023-05-10 20:06 | External Medical Summary | Summary of Care ---
Author Name Unknown Organization [facility] Address [place] [address] Care Team Providers Care Ethanol Quality Leader Name Role Phone Vanita Dunn MD Primary Care Provid er Encounter Details Date Type Department Care Team Description 06/16/2021 Scan Encounter Pulmonary Medicine, [facility] [address] [facility] [place] [address] Love Francisco, [address] [facility] [place] [address] <No scans attached> Allergies [...] 120 Vial 11 10/02/2019 Active nystatin (NYSTOP) 870876 UNIT/GM powder Apply topically to affected area [...] 60 Each 3 07/27/2020 Active Dexcom G6 Millinery Department Manager Device Use as directed. To test [...] Strip 3 10/29/2020 Active OneTouch Delica Plus Pshukq13H TESTING once daily 100 Each 3 10/29/2020 [...] pain 01/24/2012 01/17/2017 Genetic Sleep Disorder Research Other*[id number] 05/13/2011 04/07/2016 Obstructive sleep apnea 01/18/2011 12/27/19 [...] Medicine Roel Cedeno DO [address] [place] [address] [phone] 07/16/2021 Office Visit Pharmacy [address] [id number] 07/22/2021 Office Visit Pulmonary [facility]do [facility] [address] [facility] [address] [phone] 07/26/2021 Office Visit Cardiology Quyen Canseco CRNP [address] [place] [address] [phone] 07/27/2021 Office Visit Gastroenterology Lyssa Stout CRNP [address] [place] [address] [phone] 08/03/2021 Immunization/Injection Hematology Oncolog y Nurse, Med 4 200 [facility] [place] [address] [phone] 08/09/2021 Office Visit Gastroenterology Sergei Sanchez DO [address] [place], [place] [address] 08/11/2021 Office Visit Endocrinology Alberta Duque PA-C [address] [place] [address] [phone] 09/09/2021 Imaging Radiology 09/16/2021 Telemedicine Gastroenterology Katherine Moore, RDN [address] [place] [address] [phone] 01/04/2022 Office Visit Hematology Oncology Tono Sanchez MD 200 [place] [address] [phone] 06/24/2022 Office Visit Sleep Disorders Love Francisco, DO [address] [facility] [address] [phone] Health Maintenance Due Date Last Done Comments [...] of this encounter Implants Implanted Type Area Instrument And Controls Technician Device Identifier Shelf Expiration Date Model / Serial / Lot Microtech Sure Clip Implanted:Qty: 2 on 06/03/2020 by Janis Hatch DO at OR [facility] Clip N/A: Colon 04/21/2022 [facility]-F-26-2 35-C-R / / [id number] documented as of this encounter Advance Directives Documents on File Type Date Recorded 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
--- OUTSIDE RECORDS SUMMARY | 2023-05-10 20:07 | External Medical Summary | Summary of Care ---
Author Name Unknown Organization [place] [address] Care Team Providers Care Cube Machine Tender Name Role Phone Vanita Dunn MD Primary Care Provid er Reason for Visit * Reason Comments Ingrown Toenail Encounter Details Date Type Department Care Team Description 07/10/2021 [facility] [place] [address] [place] [address] SharerClotilde PA-C [address] [place] [address] [phone] Pain due to onychomycosis of toenail* Allergies Active Allergy Reactions Severity Noted Date Comments Adhesive Tape Itching 04/29/2020 Penicillins Rash 02/12/2008 Perflutren Protein A Microsph 2019 Definity-lower back pain documented as of this encounter (statuses as of 07/10/2021) Medications Medication Sig Dispensed Refills Start Date [...] 120 Vial 11 10/02/2019 Active nystatin (NYSTOP) 106678 UNIT/GM powder Apply topically to affected area [...] 60 Each 3 07/27/2020 Active Dexcom G6 Quote Clerk Device Use as directed. To test [...] Strip 3 10/29/2020 Active OneTouch Delica Plus [id number] TESTING once daily 100 Each 3 10/29/2020 [...] as of this encounter (statuses as of 07/10/2021) Active Problems Problem Noted Date Food insecurity [...] as of this encounter (statuses as of 07/10/2021) Resolved Problems Problem Noted Date Resolved Date [...] pain 01/24/2012 01/17/2017 Genetic Sleep Disorder Research Other*[id number] 05/13/2011 04/07/2016 Obstructive sleep apnea 01/18/2011 12/27/19 [...] as of this encounter (statuses as of 07/10/2021) Immunizations Name Administration Dates Next Due COVID-19 [...] Sign Reading Time Taken Comments Blood Pressure 124/84 07/10/2021 10:48 AM EDT Pulse 64 07/10/2021 10:48 AM EDT Temperature 35.8 C (96.4 F) 07/10/2021 10:48 AM E DT Respiratory Rate 16 07/10/2021 10:48 AM EDT Oxygen Saturation 95% 07/10/2021 10:48 AM EDT Inhaled Oxygen Concentration - - Weight 127 kg (280 lb) 07/10/2021 10:48 AM EDT Height 149.9 cm (4' 11") 07/10/2021 10:48 AM EDT Body Mass Index 56.55 07/10/2021 10:48 AM EDT documented in this [...] this encounter Patient Instructions * Patient Instructions* Clotilde Eric PA-C - 07/10/2021 10:55 AM EDT Soak the affected foot in warm, soapy water or a solution of water mixed with 1 to 2 teaspoons of Epsom salts for 10 to 20 minutes, three times per day for one to two weeks, pushing the skin away from the nail. Apply antibiotic ointment to the area after soaking documented in this encounter Progress Notes * Clotilde Eric PA-C - 07/10/2021 11:13 AM EDT CONVENIENT CARE NOTE HPI: Shaina Bustos is a 66 year old female who presents with chief complaint of bilateral toe pain xseveral weeks. Reports ingrowing nails. Denies any significant swelling or erythema. No drainage. ROS: See HPI for positives and negatives. Patient denies additional complaints. PAST MEDICAL HISTORY: Patient Active Problem List Diagnosis Code Venous insufficiency I87.2 Spinal stenosis of lumbar region without neurogenic claudication M48.061 Cerebral palsy ([facility]) G80.9 HTN, goal below 140/90 I10 Chronic rhinitis J31.0 NG (nonalcoholic steatohepatitis) K75.81 Hyperglycemia R73.9 Constipation K59.00 Venous stasis dermatitis of both lower extremities I87.2 DDD (degenerative disc disease), lumbar M51.36 Intermittent asthma with reliever use up to twice per week J45.20 Primary osteoarthritis of right knee M17.11 Lymphedema I89.0 Type 2 diabetes mellitus with hemoglobin A1c goal of less than 7.0% ([facility]) E11.9 Vitamin D deficiency E55.9 Restrictive lung disease J98.4 Obesity, morbid (more than 100 lbs over ideal weight or BMI > 40) ([facility]) E66.01 Dyslipidemia, goal LDL below 70 E78.5 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 R39.81 Atypical chest pain R07.89 Acquired hypothyroidism E03.9 Chronic pain syndrome G89.4 MEDICATION USE AGREEMENT [id number] Cirrhosis of liver ([facility]) K74.60 THAD on CPAP G47.33, Z99.89 Wheelchair dependent Z99.3 Pancytopenia ([facility]) D61.818 Ambulatory dysfunction R26.2 DM type 2 with diabetic peripheral neuropathy ([facility]) E11.42 Insomnia G47.00 Recurrent major depressive disorder, in partial remission ([facility]) F33.41 Impaired mobility and ADLs Z74.09, Z78.9 Generalized weakness R53.1 Gastroesophageal reflux disease K21.9 History of Achilles tendon repair Z98.890 Anemia D64.9 Fibromyalgia M79.7 Achilles tendinitis, right leg M76.61 Thrombocytopenia ([facility]) D69.6 Iron deficiency anemia due to chronic blood loss D50.0 Splenomegaly R16.1 Esophagitis K20.90 Esophageal varices ([facility]) I85.00 Uncontrolled type 2 diabetes mellitus with hyperglycemia ([facility]) E11.65 Cardiomegaly I51.7 SOB (shortness of breath) R06.02 Melena K92.1 Vancomycin resistant enterococcus culture positive Z22.39 Urinary catheter dysfunction ([facility]) T83.018A Cyst of pancreas K86.2 Calculus of kidney N20.0 Acute on chronic heart failure with preserved ejection fraction (HFpEF) ([facility]) I50.33 Anginal chest pain at rest ([facility]) I20.8 Portal hypertensive gastropathy ([facility]) K76.6, K31.89 Lactic acidosis E87.2 Food insecurity Z59.41 Past Surgical History: Procedure Laterality Date BONE DEBRIDEMENT, FIRST 20 CM2 Right 04/16/2020 DEBRIDEMENT SKIN SUBCUTANEOUS TISSUE MUSCLE AND BONE performed by Josh Vazquez MD at OR [facility] DELIVERY 04/20/1982 COLONOSCOPY 04/21/2009 repeat in 10 years COLONOSCOPY, DIAGNOSTIC (RECTUM) 10/04/2016 normal bx, repeat 10 yrs/[facility] COLONOSCOPY, DIAGNOSTIC (RECTUM) N/A 06/03/2020 internal hemorrhoids/biopsies show adenomatous polyps/recall 5 years/COLONOSCOPY FLEXIBLE PROXIMAL DIAGNOSTIC performed by Janis Hatch DO at OR [facility] COLONOSCOPY, DIAGNOSTIC (RECTUM) 03/17/2020 poor prep / [facility] DENTAL SURGERY PROCEDURE NEC wisdom teeth x 4 DILATION AND CURETTAGE (D&C) EGD, FLEXIBLE, DIAGNOSTIC 10/04/2016 gastritis/[facility] EGD, FLEXIBLE, DIAGNOSTIC 01/11/2018 eso varices, retained food, repeat 1 yr/[facility] EGD, FLEXIBLE, DIAGNOSTIC N/A 06/03/2020 severe erosive esophagitis/non-bleeding grade II esophageal varices/gastritis/biopsies show inflammatory changes/repeat 3-4 months/ESOPHAGOGASTRODUODENOSCOPY (EGD), FLEXIBLE, TRANSORAL, DIAGNOSTIC per formed by Janis Hatch DO at OR [facility] EGD, FLEXIBLE, DIAGNOSTIC 11/27/2019 eso varices, portal hypertensive gastropathy, gastritis / [facility] EGD, FLEXIBLE, DIAGNOSTIC N/A 08/05/2020 large amount of food in stomach/repeat 1.5 years/ESOPHAGOGASTRODUODENOSCOPY (EGD), FLEXIBLE, TRANSORAL, DIAGNOSTIC performed by Jains Hatch DO at OR [facility] EGD, FLEXIBLE, DIAGNOSTIC N/A 03/10/2021 ESOPHAGOGASTRODUODENOSCOPY (EGD), FLEXIBLE, TRANSORAL, DIAGNOSTIC performed by Kris Blankenship MD at ENDOSCOPY [facility] IR VENOUS ACCESS MEDIPORT 10/05/2020 [...] for Wheezing. 120 Vial 11 nystatin (NYSTOP) 382739 UNIT/GM powder Apply topically to affected area [...] a day. 60 Each 3 Dexcom G6 Quote Clerk Device Use as directed. To test [...] daily 100 Strip 3 OneTouch Delica Plus Jczwfx51S TESTING once daily 100 Each 3 Linzess 290 MCG Oral Capsule (linaCLOtide) TAKE 1 CAPSULE BY MOUTH ONCE DAILY BEFORE BREAKFAST 90 Cap 1 BD Pen Needle Mini U/F 31G [...] Cap by mouth daily. 30 Cap 0 No current facility-administered medications for this visit. Nursing Notes: Liz Handley, DEVAN 07/10/21 1055 Signed Shaina Bustos,is a 66 year old female, who presents to the walk in clinic today c/o pain to bilateral first toes for a couple of weeks. Used ibuprofen that has helped. EXAM: BP 124/84 (BP Site: Left Arm, BP Position: Sitting, BP Cuff Size: Large) | Pulse 64 | Temp 35.8 C(96.4 F) (Tympanic) | Resp 16 | Ht (!) 1.499 m (4' 11") | Wt 127 kg (280 lb) | SpO2 95% | BMI 56.55 kg/m | BSA 2.3 m GENERAL: alert, no distress Extremities: No swelling, no significant erythema, no drainage, +yellow thickened nails, no ingrownnail noted ASSESSMENT/PLAN Pain due to onychomycosis of toenail (Primary) Reassured no infection or signficant ingrown nail. Encouraged follow up with podiatry Patient Instructions Soak the affected foot in warm, soapy water or a solution of water mixed with 1 to 2 teaspoons of Epsom salts for 10 to 20 minutes, three times per day for one to two weeks, pushing the skin away from the nail. Apply antibiotic ointment to the area after soaking Clotilde Eric PA-C [facility] [address] [facility] [address] documented in this encounter Nursing Notes * Liz Handley LPN - 07/10/2021 10:54 AM EDT Shaina Bustos,is a 66 year old female, who presents to the walk in clinic today c/o pain to bilateral first toes for a couple of weeks. Used ibuprofen that has helped. documented in this encounter Plan of Treatment Upcoming Encounters Date Type Specialty Care Team Description 07/12/2021 Office Visit Family Medicine Joel Jordan MD [address] [place] [address] [phone] 07/16/2021 Office Visit Pharmacy [facility] [address] [place] [address] [phone] 07/22/2021 Office Visit Pulmonary Reynaldo Marquez MD [address] [place] [address] [phone] 07/26/2021 Office Visit Cardiology Quyen Canseco CRNP [address] [place] [address] [address] [phone] 07/27/2021 Office Visit Gastroenterology Lyssa Stout CRNP [address] [place] [address] [phone] 08/03/2021 Immunization/Injection Hematology Oncolog y Nurse, Med [address] [place] [address] [phone] 08/09/2021 Office Visit Gastroenterology Sergei Sanchez DO [address], [place] [address] 08/11/2021 Office Visit Endocrinology Alberta Duque PA-C [address], [place] [address] 09/09/2021 Imaging Radiology 09/16/2021 Telemedicine Gastroenterology Katherine Moore RDN [address] [place], [place] [address] 01/04/2022 Office Visit Hematology Oncology Tono Sanchez MD [address] [place] [address] [phone] 06/24/2022 Office Visit Sleep Disorders Love Francisco, DO [address] [place] [address] [phone] Health Maintenance Due Date Last Done Comments [...] of this encounter Implants Implanted Type Area Test Lead Device Identifier Shelf Expiration Date Model / Serial / Lot Microtech Sure Clip Implanted:Qty: 2 on 06/03/2020 by Janis Hatch DO at OR [facility] Clip N/A: Colon 04/21/2022 [facility]-F-26-2 35-C-R / / [id number] documented as of this encounter Visit Diagnoses Diagnosis Pain due to onychomycosis of toenail- Primary Pain in limb documented in this encounter Advance Directives Documents on File Type Date Recorded Patient Control Clerk Food And Beverage Expl anation Advance Directives and Living Will 04/29/2021 12:00 AM ADVANCE DIRECTIVE / LIVING WILL LIVING WILL AND HEALTH CARE POA Power of Workers Compensation Administrator 04/29/2021 12:00 AM TOM R OF SENIOR WATER RESOURCES ENGINEER HEALTH CARE POA Advanced 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
--- OUTSIDE RECORDS SUMMARY | 2023-05-10 20:07 | External Medical Summary | Summary of Care ---
Author Name Unknown Organization [place] [address] Care Team Providers Care Engraver Tender Name Role Phone Vanita Dunn MD Primary Care Provid er Reason for Visit * Reason Comments eRx-Medication Refill Encounter Details Date Type Department Care Team Description 07/09/[address] [facility] [address] [place] [address] Rajwinder Carter, [address], [place] [id number] Recurrent major depressive disorder, in partial remission (HCC) Allergies Active Allergy Reactions Severity Noted Date Comments Adhesive Tape Itching 04/29/2020 Penicillins Rash 02/12/2008 Perflutren Protein A Microsph 2019 Definity-lower back pain documented as of this encounter (statuses as of 07/12/2021) Medications Medication Sig Dispensed Refills Start Date [...] 120 Vial 11 10/02/2019 Active nystatin (NYSTOP) 469082 UNIT/GM powder Apply topically to affected area [...] Each 3 07/27/2020 Active Dexcom G6 Car Seat Upholsterer Device Use as directed. To test blood [...] Strip 3 10/29/2020 Active OneTouch Delica Plus Ilrzbk68H TESTING once daily 100 Each 3 10/29/2020 [...] as of this encounter (statuses as of 07/12/2021) Active Problems Problem Noted Date Food insecurity [...] as of this encounter (statuses as of 07/12/2021) Resolved Problems Problem Noted Date Resolved Date [...] pain 01/24/2012 01/17/2017 Genetic Sleep Disorder Research Other*[id number] 05/13/2011 04/07/2016 Obstructive sleep apnea 01/18/2011 12/27/19 [...] as of this encounter (statuses as of 07/12/2021) Immunizations Name Administration Dates Next Due COVID-19 [...] encounter Miscellaneous Notes * Telephone Encounter - Cassidy Rae RPh - 07/12/2021 9:34 AM EDT Refused Prescriptions: Disp Refills Escitalopram Oxalate 20 MG Oral Tablet (Le*90 Tab 0 Sig: TAKE 1TABLET BY MOUTH ONCE DAILYRefused By: CASSIDY RAE for Refusal: Too soonReason for Refusal Comment: 90+3 refills sent in December documented in this encounter Plan of Treatment Upcoming Encounters Date Type Specialty Care Team Description 07/12/2021 Office Visit Family Medicine Joel Jordan MD [address] [place] [address] [phone] 07/16/2021 Office Visit Pharmacy [facility] [address] [place] [address] [phone] 07/22/2021 Office Visit Pulmonary Reynaldo Marquez MD [address] [address] 07/26/2021 Office Visit Cardiology Quyen Canseco, [place]AK [address] [facility] [address] [phone] 07/27/2021 Office Visit Gastroenterology Lyssa Stout CRNP [address] [facility] [place] [address] [phone] 08/03/2021 Immunization/Injection Hematology Oncolog y Nurse, Med [address] [place] [address] [phone] 08/09/2021 Office Visit Gastroenterology Sergei Sanchez DO [address], [place] [phone] 08/11/2021 Office Visit Endocrinology Alberta Duque PA-C [address] [place], [place] [address] 09/09/2021 Imaging Radiology 09/16/2021 Telemedicine Gastroenterology Katherine Moore RDN [address] [place], [place] [address] 01/04/2022 Office Visit Hematology Oncology Tono Sanchez MD [address] [place] [address] [phone] 06/24/2022 Office Visit Sleep Disorders Love Francisco, [address] [facility] [place] [address] [phone] Health Maintenance Due Date Last Done Comments [...] of this encounter Implants Implanted Type Area Cone Worker Device Identifier Shelf Expiration Date Model / Serial / Lot Microtech Sure Clip Implanted:Qty: 2 on 06/03/2020 by Janis Hatch DO at OR [facility] Clip N/A: Colon 04/21/2022 [facility]-F-26-2 35-C-R / / [id number] documented as of this encounter Visit Diagnoses Diagnosis Recurrent major depressive disorder, in partial remission (HCC) documented in this encounter Advance Directives Documents on File Type Date Recorded Patient Corporate Auditor Expl anation Advance Directives and Living Will 04/29/2021 12:00 AM ADVANCE DIRECTIVE / LIVING WILL LIVING WILL AND HEALTH CARE POA Power of Mail Handler Sorter 04/29/2021 12:00 AM TOM R OF COPING MACHINE OPERATOR HEALTH CARE POA Advanced 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
--- OUTSIDE RECORDS SUMMARY | 2023-05-10 20:08 | External Medical Summary | Summary of Care ---
Author Name Unknown Organization [facility] Address [place] [address] Care Team Providers Care Personal Loan Specialist Name Role Phone Vanita Dunn MD Primary Care Provid er Encounter Details Date Type Department Care Team Description 06/30/2021 Scan Encounter [facility] [address] [place] [address] Vanita Dunn MD [address] [place] [address] <No scans attached> Allergies Active Allergy Reactions Severity Noted Date Comments Adhesive Tape Itching 04/29/2020 Penicillins Rash 02/12/2008 Perflutren Protein A Microsph 2019 Definity-lower back pain documented as of this encounter (statuses as of 07/02/2021) Medications Medication Sig Dispensed Refills Start Date [...] 120 Vial 11 10/02/2019 Active nystatin (NYSTOP) 361391 UNIT/GM powder Apply topically to affected area [...] 60 Each 3 07/27/2020 Active Dexcom G6 Hotel Server Device Use as directed. To test blood [...] Strip 3 10/29/2020 Active OneTouch Delica Plus Qczspw15O TESTING once daily 100 Each 3 10/29/2020 [...] as of this encounter (statuses as of 07/02/2021) Active Problems Problem Noted Date Food insecurity [...] as of this encounter (statuses as of 07/02/2021) Resolved Problems Problem Noted Date Resolved Date [...] pain 01/24/2012 01/17/2017 Genetic Sleep Disorder Research Other*[id number] 05/13/2011 04/07/2016 Obstructive sleep apnea 01/18/2011 12/27/19 [...] as of this encounter (statuses as of 07/02/2021) Immunizations Name Administration Dates Next Due COVID-19 [...] Encounters Date Type Specialty Care Team Description 07/02/2021 Immunization/Injection Hematology Oncolog y Nurse, Med [address] [place] [address] [phone] 07/06/2021 Office Visit Hematology Oncology Tono Sanchez MD [address] [place] [address] [phone] 07/12/2021 Office Visit Family Medicine Joel Jordan MD [address] [place] [address] [phone] 07/16/2021 Office Visit Pharmacy [facility] [address] [place] [address] [phone] 07/22/2021 Office Visit Pulmonary [facility] [address] [facility] [address] [phone] 07/26/2021 Office Visit Cardiology [facility]en [facility]seco [facility] [address] [facility] [address] [phone] 07/27/2021 Office Visit Gastroenterology Lyssa Stout CRNP [address] [facility] [place] [address] [phone] 08/09/2021 Office Visit Gastroenterology Sergei Sanchez P, DO [address] [place] [address] [phone] 08/11/2021 Office Visit Endocrinology Alberta Duque PA-C [address] [place], [place] [phone] 09/09/2021 Imaging Radiology 09/16/2021 Telemedicine Gastroenterology Katherine Moore, [place] [address] [place], [place] [address] 06/24/2022 Office Visit Sleep Disorders Loev Francisco, DO [address] [facility] [place] [address] [phone] Health Maintenance Due Date Last Done Comments DIABETES-EYE EXAM 06/12/2019 06/12/2018, , 06/12/2018, Additional history exists Dexa Scan 2020 Zoster Vaccines (3 of 3) 06/23/2020 04/28/2020, 11/11 BREAST CANCER SCREENING DISCUSSION YEARLY AGES 40-75 09/08/2021 09/08/2020, 09/02/2019, 04/04/2018, Additional history exists DIABETES-HGBA1C EVERY 6 MONTHS 12/08/2021 06/10/2021, 03/08/2021, 11/30/2020, Additional history exists Yearly B-12 04/01/2022 04/01/2021, 03/11, 07/14/2020, Additional history exists DIABETES-FOOT EXAM 04/05/2022 04/05/2021, 0 11/06/2019, 01/09/2019, Additional history exists DIABETES-URINE MICROALBUMIN EVERY 12 MONTHS 04/16/2022 04/16/2021, 03/31/2021, 03/22/2021, Additional history exists Pneumococcal Vaccine: 65+ Years [...] this encounter Implants Implanted Type Area Field Services Director Device Identifier Shelf Expiration Date Model / Serial / Lot Microtech Sure Clip Implanted:Qty: 2 on 06/03/2020 by Janis Hatch DO at OR [facility] Clip N/A: Colon 04/21/2022 [facility]-F-26-2 35-C-R / / [id number] documented as of this encounter Advance Directives Documents on File Type Date Recorded Patient Race Starter Expl anation Advance Directives and Living Will 04/29/2021 12:00 AM ADVANCE DIRECTIVE / LIVING WILL LIVING WILL AND HEALTH CARE POA Power of Dot Compliance Specialist 04/29/2021 12:00 AM TOM R OF CANNON CREWMEMBER HEALTH CARE POA Advanced 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
--- OUTSIDE RECORDS SUMMARY | 2023-05-10 20:08 | External Medical Summary | Summary of Care ---
Author Name Unknown Organization [facility] Address [place] [address] Care Team Providers Care Insurance Marketing Specialist Name Role Phone Vanita Dunn MD Primary Care Provid er Encounter Details Date Type Department Care Team Description 07/02/2021 Scan Encounter [facility] [address] [place] [address] Vanita Dunn MD [address] [place] [address] <No scans attached> Allergies Active Allergy Reactions Severity Noted Date Comments Adhesive Tape Itching 04/29/2020 Penicillins Rash 02/12/2008 Perflutren Protein A Microsph 2019 Definity-lower back pain documented as of this encounter (statuses as of 07/05/2021) Medications Medication Sig Dispensed Refills Start Date [...] 120 Vial 11 10/02/2019 Active nystatin (NYSTOP) 891251 UNIT/GM powder Apply topically to affected area [...] 60 Each 3 07/27/2020 Active Dexcom G6 Oriental Medicine Practitioner Device Use as directed. To test blood [...] Strip 3 10/29/2020 Active OneTouch Delica Plus Vdeypr87N TESTING once daily 100 Each 3 10/29/2020 [...] as of this encounter (statuses as of 07/05/2021) Active Problems Problem Noted Date Food insecurity [...] as of this encounter (statuses as of 07/05/2021) Resolved Problems Problem Noted Date Resolved Date [...] failure 04/08/2019 04/18/2019 Oxygen dependent 04/08/2019 04/18/2019 longterm resident 04/08/2019 05/02/2019 Fall 04/04/2019 05/05/2020 Sprain [...] pain 01/24/2012 01/17/2017 Genetic Sleep Disorder Research Other*[id number] 05/13/2011 04/07/2016 Obstructive sleep apnea 01/18/2011 12/27/19 [...] as of this encounter (statuses as of 07/05/2021) Immunizations Name Administration Dates Next Due COVID-19 [...] Encounters Date Type Specialty Care Team Description 07/06/2021 Office Visit Hematology Oncology Tono Sanchez MD [address] [place] [address] [phone] 07/09/2021 Immunization/Injection Hematology Oncolog y Nurse, Med 4 [address] [place] [address] [phone] 07/12/2021 Office Visit Family Medicine Joel Jordan MD [address] [place] [address] [phone] 07/16/2021 Office Visit Pharmacy [facility] [address] [place] [address] [phone] 07/22/2021 Office Visit Pulmonary [facility]aldo Marquez [facility] [address] [facility] [address] [phone] 07/26/2021 Office Visit Cardiology Quyen Canseco [facility]NP [address] [facility] [address] [phone] 07/27/2021 Office Visit Gastroenterology Lyssa Stout CRNP [address] [facility] [place] [address] [phone] 08/09/2021 Office Visit Gastroenterology Sergei Sanchez P, DO [address] [facility] [address] [phone] 08/11/2021 Office Visit Endocrinology Alberta Duque PA-C [address] [place], [place] [phone] 09/09/2021 Imaging Radiology 09/16/2021 Telemedicine Gastroenterology Katherine Moore, [place] [address] [place], [place] [address] 06/24/2022 Office Visit Sleep Disorders Love Francisco, DO [address] [facility] [place] [address] [phone] Health Maintenance Due Date Last Done Comments [...] of this encounter Implants Implanted Type Area Evaluator Device Identifier Shelf Expiration Date Model / Serial / Lot Microtech Sure Clip Implanted:Qty: 2 on 06/03/2020 by Janis Hatch DO at OR [facility] Clip N/A: Colon 04/21/2022 [facility]-F-26-2 35-C-R / / [id number] documented as of this encounter Advance Directives Documents on File Type Date Recorded Patient Virtualization Engineer Expl anation Advance Directives and Living Will 04/29/2021 12:00 AM ADVANCE DIRECTIVE / LIVING WILL LIVING WILL AND HEALTH CARE POA Power of Network Operations Lead 04/29/2021 12:00 AM TOM R OF CHEMISTRY FACULTY MEMBER HEALTH CARE POA Advanced 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
--- OUTSIDE RECORDS SUMMARY | 2023-05-10 20:08 | External Medical Summary ---
Author Name Unknown Address Unknown Organization K01:LABORATORY [facility] [place] - [address] [place] [address] Laboratory Report Ordering Provider Test Date Status JACOB CORBETT 07/06/2021 15:32:29 Final Observation Date Value Abnormality Reference (Units ) Status Iron 07/06/2021 15:32:29 27 Below low normal 33-151 (ug/dL) Final Iron-binding capacity 07/06/2021 15:32:29 328 250-425 (ug/dL) Final Transferrin Sat % 07/06/2021 15:32:29 8 Below low normal 15-55 (%) Final Performing Location LABORATORY C - [address] [place] [address]
--- OUTSIDE RECORDS SUMMARY | 2023-05-10 20:08 | External Medical Summary ---
Author Name Unknown Address Unknown Organization K01:[facility]ORY [facility] [place] - [address] [place] [address] Laboratory Report Ordering Provider Test Date Status JACOB CORBETT 07/06/2021 15:32:29 Final Observation Date Value Abnormality Reference (Units ) Status Folic Acid 07/06/2021 15:32:29 14.5 >4.5 (ng/ mL) Final Performing Location [facility] - [address] [place] [address]
--- OUTSIDE RECORDS SUMMARY | 2023-05-10 20:08 | External Medical Summary | Summary of Care ---
Author Name Unknown Organization [place] [address] Care Team Providers Care Superintendent Plant Protection Name Role Phone Vanita Dunn MD Primary Care Provid er Reason for Visit * Reason Comments Follow Up f/u Encounter Details Date Type Department Care Team Description 07/06/2021 Office Visit Hematology/Oncology [facility] [address] [place] [address] Tono Sanchez MD [address] [place] [address] [phone] Iron deficiency anemia due to chronic blood loss*; Pancytopenia (HCC); Splenomegaly; Nutritional anemia, unspecified Allergies Active Allergy Reactions Severity Noted Date Comments Adhesive Tape Itching 04/29/2020 Penicillins Rash 02/12/2008 Perflutren Protein A Microsph 2019 Definity-lower back pain documented as of this encounter (statuses as of 07/07/2021) Medications Medication Sig Dispensed Refills Start Date [...] 120 Vial 11 10/02/2019 Active nystatin (NYSTOP) 128331 UNIT/GM powder Apply topically to affected area [...] 60 Each 3 07/27/2020 Active Dexcom G6 Block Breaker Device Use as directed. To test blood [...] TO ACCESSING. 30 g 3 10/09/2020 Active OneFloodlightio In Vitro Strip (Glucose Blood) TESTING once daily 100 Strip 3 10/29/2020 Active OneTouch Delica Plus [id number] TESTING once daily 100 Each 3 10/29/2020 [...] as of this encounter (statuses as of 07/07/2021) Active Problems Problem Noted Date Food insecurity [...] as of this encounter (statuses as of 07/07/2021) Resolved Problems Problem Noted Date Resolved Date [...] pain 01/24/2012 01/17/2017 Genetic Sleep Disorder Research Other*[id number] 05/13/2011 04/07/2016 Obstructive sleep apnea 01/18/2011 12/27/19 [...] as of this encounter (statuses as of 07/07/2021) Immunizations Name Administration Dates Next Due COVID-19 [...] Sign Reading Time Taken Comments Blood Pressure 100/65 07/06/2021 2:57 PM EDT Pulse 62 07/06/2021 2:57 PM EDT Temperature 36 C (96.8 F) 07/06/2021 2:57 PM EDT Respiratory Rate 18 07/06/2021 2:57 PM EDT Oxygen Saturation 95% 07/06/2021 2:57 PM EDT Inhaled Oxygen Concentration - - [...] Progress Notes * Tono Sanchez MD - 07/06/2021 4:21 PM EDT Name: Shaina Bustos CHIEF COMPLAINT: Shaina Bustos is a 65 year old female patient is here for the follow-up. DIAGNOSIS: -pancytopenia related to underlying cirrhosis of liver and splenomegaly -iron deficiency anemia. DIAGNOSTIC WORKUP: She is referred to hematology for evaluation of the anemia, I I reviewed her medical records, also reviewed her medical records from [facility]. She has underlying cirrhosis of liver, has evidence of iron deficiency for the last 1 year, Ferritin level was less than 10 earlier in December 2018, she was on oral iron replacement therapy once a day,lately increase to twice a day. She was admitted at [facility] in November 2019, she received 1 to [...] leg edema, she is on diuretic treatment. CURRENT TREATMENT: -she is on oral iron replacement therapy twice a day -IV Venofer every 2 weeks (so far she received 6 treatments in last 3 months). -IV iron the form of Ferric Derisomaltose (Monoferric) on 04/14/2021. (1000 mg). INTERVAL HISTORY: She has come the clinic for the follow-up, accompanied by her in the office, came to clinicin the wheelchair. She is on oxygen treatment ,she uses CPAP machine with oxygen during the nighttime, 2 saturation is normal on room air at this time, no nausea, no vomiting, bilateral leg edema present, abdominal distension present, fair appetite, no fever at this time. Shortness of breath on minimal exertion present. Current weight around 260 lb. No increasing chest pain at this time. Clarissa was admitted at [facility]. Review of patient's allergies indicates: Allergen Reactions [...] for Wheezing. 120 Vial 11 nystatin (NYSTOP) 984288 UNIT/GM powder Apply topically to affected area [...] a day. 60 Each 3 Dexcom G6 Block Breaker Device Use as directed. To test blood [...] daily 100 Strip 3 OneTouch Delica Plus [id number] TESTING once daily 100 Each 3 Linzess [...] Tab 11 BiPAP every night at bedtime. Cyclobenzaprine HCl 10 MG Oral Tablet (Flexeril) TAKE 1 TABLET ONCE DAILY AT BEDTIME 30 Tab 0 Isosorbide Mononitrate ER 30 MG Oral [...] Cap by mouth daily. 30 Cap 0 MEDICAL INSTRUCTIONS Please de-access patient's port. Please flush with 10 mL of NS, followed by 500 units (5 mL) of heparin. 1 Each N/A Atorvastatin Calcium 80 MG Oral Tablet (Lipitor) Take 1 Tab by mouth at bedtime. 30 Tab 5 Aspirin 81 MG Oral Tablet Chewable Take 1 Tab by mouth daily. 30 Tab 5 No current facility-administered medications for this visit. Past Medical History: Diagnosis Date Cerebral palsy (HCC) 01/24/2012 Chronic constipation Chronic hypoxemic respiratory failure (HCC) 04/08/2019 Chronic [...] of less than 7.0% ([facility]) 09/26/2013 ICD-10 update of inactive term OBJECTIVE: Filed Vitals: 07/06/21 1457 BP: 100/65 Pulse: 62 Resp: 18 Temp: 36 C (96.8 F) TempSrc: Infrared SpO2: 95% Wt Readings from Last 5 Encounters: 06/16/21 117.9 kg (260 lb) 06/10/21 117.9 kg (260 lb) 04/08/21 117.9 kg (260 lb) 04/03/21 126.1 kg (278 lb) 03/24/21 120.9 kg (266 lb 9.6 oz) PHYSICAL EXAM: General Appearance: Normal - Healthy appearing patient in no acute distress- sitting comfortably inwheelchair and answering questions appropriately and in complete sentences without retractions or nasal flaring. Skin: Normal- No rashes, lesions or petechiae. Port without signs of infection. HEENT: Normal - No oral or pharyngeal masses, ulceration or thrush noted, no sinus tenderness Lymph Nodes: Normal - No palpable lymph nodes in the neck or supraclavicular areas Lungs/Thorax: Normal - Clear to auscultation Heart: Normal - Regular rate and rhythm, normal S1, S2, no appreciable murmurs, rubs, gallops. Pulses/Extremities: Normal - 2+ throughout and symmetrical, no edema Abdomen: Normal - Soft, nontender, bowel sounds present, no appreciable hepatosplenomegaly, no palpable masses Musculoskeletal: Normal - No pain on palpation over bony prominence, no joint or bony deformity Neurologic: Normal - Grossly intact Psyche: No vegetative signs of depression. LABS: Blood workup done on 09/24/2019: -WBC 2016, H&H of 7.5/26, MCV 92, Platelet count of 80,000, ANC 1400. Absolute lymphocyte [id number]. -BUN/Creat: 10/0.6, Calcium 8.7. -Serum iron 26, TIBC 352, iron saturation 7%, Ferritin level > 22.5 Blood workup done on 07/06/2021: -Serum iron 27, TIBC 327, iron saturation 8% -ferritin level > 48 -Vitamin B12 > 1021 -folic acid > 14.5 I reviewed her blood workup done at [facility]. Hemoglobin was around 8, pancytopenia noted which is not a new finding. ( 06/30/2021). IMPRESSION/PLAN: Iron Deficiency Anemia, in the setting of cirrhosis of liver with portal Hypertension and splenomegaly causing pancytopenia. Now she has a port, she received IV iron in the past, last dose of Ferric Derisomaltose (Monoferric) received in April 2021. She gets frequent hospitalization, ER visits, gets periodic blood workup, has some nonspecific chest pain, back pain. I reviewed her blood workup done recently, ferritin was around 48. Hemoglobin was around 8.1. It is becoming difficult to manage her anemia with frequent hospitalizations, missing clinic visitsand port flushed visits so we cannot really schedule her for follow-up blood workup at this time. I would consider for every other week blood workup. If she has evidence of iron deficient, will consider for another round of IV iron treatment. I am planning to see her back in the clinic about [address] Tono Sanchez Hem/Onc [...] documented in this encounter Nursing Notes * Noe Linda CMA - 07/06/2021 3:00 PM EDT Patient identifed by name and birthdate Do you have any concerns about pain management for today's visit? Yes. Patient instructed to discuss pain concerns with provider during the visit today Living Will or Advance Directive for Health Care as noted on the problem list. [facility] is a way you can talk to your provider on line through e-mail. Would you like to sign up? I can activate it for you? NO Filed Vitals: 07/06/21 1457 BP: 100/65 Pulse: 62 Resp: 18 Temp: 36 C (96.8 F) TempSrc: Infrared SpO2: 95% Pt reported experiencing chest pain. Pt was discharged from the hospital last week for chest pain. documented in this encounter Plan of Treatment Upcoming Encounters Date Type Specialty Care Team Description 07/09/2021 Immunization/Injection Hematology Oncolog y Nurse, Med [address] [place] [address] [phone] 07/12/2021 Office Visit Family Medicine Joel Jordan MD [address] [place] [address] [phone] 07/16/2021 Office Visit Pharmacy [facility] [address] [place] [address] [phone] 07/22/2021 Office Visit Pulmonary Reynaldo Marquez MD [address] [place] [address] [phone] 07/26/2021 Office Visit Cardiology Quyen Canseco CRNP [address] [facility] [address] [phone] 07/27/2021 Office Visit [facility]enterology [facility] [address] [facility] [address] [phone] 08/09/2021 Office Visit Gastroenterology Sergei Sanchez DO [address], [place] [id number] 08/11/2021 Office Visit Endocrinology Alberta Duque PA-C [address], [place] [id number] 09/09/2021 Imaging Radiology 09/16/2021 Telemedicine Gastroenterology Katherine Moore RDN [address] [place] [address] [phone] 01/04/2022 Office Visit Hematology Oncology Tono Sanchez MD 200 [facility] [place] [address] [phone] 06/24/2022 Office Visit Sleep Disorders [facility] Francisco [facility] [address] [facility] [address] [phone] Health Maintenance Due Date Last Done Comments DIABETES-EYE EXAM 06/12/2019 06/12/2018, , 06/12/2018, Additional history exists Dexa Scan 2020 Zoster Vaccines (3 of 3) 06/23/2020 04/28/2020, 03/ BREAST CANCER SCREENING DISCUSSION YEARLY AGES 40-75 [...] this encounter Implants Implanted Type Area Screen Printing Equipment Setter Device Identifier Shelf Expiration Date Model / Serial / Lot Microtech Sure Clip Implanted:Qty: 2 on 06/03/2020 by Janis Hatch DO at OR [facility] Clip N/A: Colon 04/21/2022 [facility]-F-26-2 35-C-R / / [id number] documented as of this encounter Procedures Procedure Name Priority Date/Time Associated Diagnosis Comments FOLIC ACID Routine 07/06/2021 3:32 PM EDT Iron deficiency anemia due to chronic blood loss Pancytopenia (HCC) Splenomegaly Nutritional anemia, unspecified IRON SCREEN, INCLUDING TIBC Routine 07/06/2021 3:32 PM EDT Iron deficiency anemia due to chronic blood loss Pancytopenia (HCC) Splenomegaly FERRITIN Routine 07/06/2021 3:32 PM EDT Iron deficiency anemia due to chronic blood loss Pancytopenia (HCC) Splenomegaly VITAMIN B12 Routine 07/06/2021 3:32 PM EDT Nutritional anemia, unspecified Iron deficiency anemia due to chronic blood loss Pancytopenia (HCC) Splenomegaly documented in this encounter Results * FOLIC ACID (07/06/2021 3:32 PM EDT) Folic Acid 14.5 >4.5 ng/mL [facility] [place] Blood - Venous blood specime n (specimen) Performing Organization Address [facility] de Phone Number LABORATORY C [address] [place] [address] * VITAMIN B12 (07/06/2021 3:32 PM EDT) Vitamin B12 1,021 232-1,245 pg/mL [facility] [place]imen Blood - Venous blood specime n (specimen) Performing Organization Address [facility] de Phone Number [facility] [address] [place] [address] * FERRITIN (07/06/2021 3:32 PM EDT) Ferritin 48Comment:Postmenopa usa l women have higher ferritin levels than pre-menopausal women. The above reference interval is based on pre-menopausal women. 13 - 150 ng/mL [facility] Specimen Blood - Venous blood specime n (specimen) Performing Organization Address [facility] de Phone Number [facility] [address] [place] [address] * IRON SCREEN, INCLUDING TIBC (07/06/2021 3:32 PM EDT) Iron 27(L) 33 - 151 ug/dL [facility] Iron Binding Capacity 328 250 - 425 ug/dL LAB[facility]ATOR Y [facility] Transferrin Saturation Percent 8(L) 15 - 55 % LAB[facility]ATORY [facility] Specimen Blood - Venous blood specime n (specimen) Performing Organization Address [facility]/ZIP [facility] de Phone Number LABORATORY [facility] [address] [place] [address] documented in this encounter Visit Diagnoses Diagnosis Iron deficiency anemia due to chronic blood loss- Primary Iron deficiency anemia secondary to blood loss (chronic) Pancytopenia (HCC) Other pancytopenia Splenomegaly Nutritional anemia, unspecified documented in this encounter Advance Directives Documents on File Type Date Recorded Patient Rubber Goods Inspector Tester Expl anation Advance Directives and Living Will 04/29/2021 12:00 AM ADVANCE DIRECTIVE / LIVING WILL LIVING WILL AND HEALTH CARE POA Power of Disposal Worker 04/29/2021 12:00 AM TOM R OF [employer] [facility] POA Advanced 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
--- OUTSIDE RECORDS SUMMARY | 2023-05-10 20:08 | External Medical Summary ---
Author Name Unknown Address Unknown Organization K01:LABORATORY [facility] [place] - [address] [place] [address] Laboratory Report Ordering Provider Test Date Status JACOB CORBETT 07/06/2021 15:32:29 Final Observation Date Value Abnormality Reference (Units ) Status Vitamin B12 07/06/2021 15:32:29 1021 232-1,24 5 (pg/mL) Final Performing Location [facility] - [address] [place] [address]
--- OUTSIDE RECORDS SUMMARY | 2023-05-10 20:08 | External Medical Summary | Summary of Care ---
Author Name Unknown Organization [facility] Address [place] [address] Care Team Providers Care Dental Floss Packer Name Role Phone Vanita Dunn MD Primary Care Provid er Encounter Details Date Type Department Care Team Description 07/06/2021 Scan Encounter [facility] [address] [place] [address] Vanita Dunn MD [address] [place] [address] <No scans attached> Allergies Active [...] 120 Vial 11 10/02/2019 Active nystatin (NYSTOP) 399284 UNIT/GM powder Apply topically to affected area [...] 60 Each 3 07/27/2020 Active Dexcom G6 Director Of Bands Device Use as directed. To test blood [...] Strip 3 10/29/2020 Active OneTouch Delica Plus Gjfmej69I TESTING once daily 100 Each 3 10/29/2020 [...] failure 04/08/2019 04/18/2019 Oxygen dependent 04/08/2019 04/18/2019 snf resident 04/08/2019 05/02/2019 Fall 04/04/2019 05/05/2020 Sprain [...] pain 01/24/2012 01/17/2017 Genetic Sleep Disorder Research Other*[id number] 05/13/2011 04/07/2016 Obstructive sleep apnea 01/18/2011 12/27/19 [...] Oncolog y Nurse, Med [address] [place] [address] [phone] 07/12/2021 Office Visit Family Medicine Joel Jordan MD [address] [place], [place] [address] 07/16/2021 Office Visit Pharmacy [facility] [address], [place] [address] 07/22/2021 Office Visit Pulmonary Reynaldo Marquez MD [address] [place] [address] [phone] 07/26/2021 Office Visit Cardiology [facility]en Canseco CRNP [facility] [address] [phone] 07/27/2021 Office Visit Gastroenterology Lyssa Stout CRNP [address] [place] [address] [phone] 08/09/2021 Office Visit Gastroenterology Sergei Sanchez, DO [address], [place] [address] 08/11/2021 Office Visit Endocrinology Alberta Duque PA-C [address] [place] [address] [phone] 09/09/2021 Imaging Radiology 09/16/2021 Telemedicine Gastroenterology Katherine Moore, [place] [address] [facility] [address] [phone] 01/04/2022 Office Visit Hematology Oncology Tono Sanchez MD 200 [place] [address] [phone] 06/24/2022 Office Visit Sleep Disorders Love Francisco, DO 132 [facility] [place] [address] [phone] Health Maintenance Due Date Last Done Comments [...] this encounter Implants Implanted Type Area Residential Sales Device Identifier Shelf Expiration Date Model / Serial / Lot Microtech Sure Clip Implanted:Qty: 2 on 06/03/2020 by Janis Hatch DO at OR [facility] Clip N/A: Colon 04/21/2022 [facility]-F-26-2 35-C-R / / [id number] documented as of this encounter Advance Directives Documents on File Type Date Recorded Patient Visual Display Manager Expl anation Advance Directives and Living Will 04/29/2021 12:00 AM ADVANCE DIRECTIVE / LIVING WILL LIVING WILL AND HEALTH CARE POA Power of Education Officer 04/29/2021 12:00 AM TOM R OF ARTIST MANAGER HEALTH CARE POA Advanced 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
--- OUTSIDE RECORDS SUMMARY | 2023-05-10 20:08 | External Medical Summary ---
Author Name Unknown Address Unknown Organization K01:LABORATORY [facility] - [address] [place] [address] Laboratory Report Ordering Provider Test Date Status JACOB CORBETT 07/06/2021 15:32:29 Final Observation Date Value Abnormality Reference (Units ) Status Ferritin 07/06/2021 15:32:29 48 13-150 (ng /mL) Final Performing Location [facility] - [address] [place] [address]
--- OUTSIDE RECORDS SUMMARY | 2023-05-10 20:09 | External Medical Summary | Summary of Care ---
Author Name Unknown Organization [facility] Address [facility] [place] [address] Care Team Providers Care Remarketing Rep Name Role Phone Vanita Dunn MD Primary Care Provid er Reason for Visit * Reason Onset Date Comments Test Results 06/30/2021 Encounter Details Date Type Department Care Team Description 06/30/2021 Telephone Cardiology, [facility] [address] [place] [address] Mega Hagen MD 132 [facility] [place] [address] [phone] Test Results Allergies Active Allergy Reactions Severity Noted Date Comments Adhesive Tape Itching 04/29/2020 Penicillins Rash 02/12/2008 Perflutren Protein A Microsph 2019 Definity-lower back pain documented as of this encounter (statuses as of 06/30/2021) Medications Medication Sig Dispensed Refills Start Date [...] 120 Vial 11 10/02/2019 Active nystatin (NYSTOP) 506763 UNIT/GM powder Apply topically to affected area [...] 60 Each 3 07/27/2020 Active Dexcom G6 Meat And Seafood Manager Device Use as directed. To test [...] once daily 100 Strip 3 10/29/2020 Active Mind-NRGTouch Delica Plus Qhydbw67B TESTING once daily 100 Each 3 10/29/2020 [...] as of this encounter (statuses as of 06/30/2021) Active Problems Problem Noted Date Food insecurity [...] as of this encounter (statuses as of 06/30/2021) Resolved Problems Problem Noted Date Resolved Date [...] pain 01/24/2012 01/17/2017 Genetic Sleep Disorder Research Other*[id number] 05/13/2011 04/07/2016 Obstructive sleep apnea 01/18/2011 12/27/19 [...] as of this encounter (statuses as of 06/30/2021) Immunizations Name Administration Dates Next Due COVID-19 [...] encounter Miscellaneous Notes * Telephone Encounter - Rosie Hanna NRCMA - 06/30/2021 10:13 AM EDT Unable to LM on cell. LMTCB on home # SABAS Sullivan * Telephone Encounter - Rosie Hanna NRCMA - 06/30/2021 10:09 AM EDT ----- Message from Mega Hagen MD sent at 06/30/2021 9:53 AM EDT ----- Difficult study as expected however overall heart function appears normal and there is mild narrowing of the aortic valve only., good documented in this encounter Plan of Treatment Upcoming Encounters Date Type Specialty Care Team Description 07/02/2021 Immunization/Injection Hematology Oncolog y Nurse, Med [address] [place] [address] [phone] 07/06/2021 Office Visit Hematology Oncology Tono Sanchez MD 200 [facility] [place] [address] [phone] 07/16/2021 Office Visit [address] [address] [phone] 07/22/2021 Office Visit Pulmonary Reynaldo Marquez MD [address] [place] [address] [phone] 07/26/2021 Office Visit Cardiology Quyen Canseco, ZAK [facility] [address] [phone] 07/27/2021 Office Visit Gastroenterology Lyssa Stout CRNP 132 [facility] [place] [address] [phone] 08/11/2021 Office Visit Endocrinology Alberta Duque PA-C [address] [place] [address] 09/09/2021 Imaging Radiology 09/16/2021 Telemedicine Gastroenterology Katherine Moore RDN [address] [place] [address] 06/24/2022 Office Visit Sleep Disorders Love Francisco, [address] [facility] [address] [phone] Health Maintenance Due Date Last Done Comments [...] of this encounter Implants Implanted Type Area Crystal Grower Device Identifier Shelf Expiration Date Model / Serial / Lot Microtech Sure Clip Implanted:Qty: 2 on 06/03/2020 by Janis Hatch DO at OR [facility] Clip N/A: Colon 04/21/2022 [facility]-F-26-2 35-C-R / / [id number] documented as of this encounter Advance Directives Documents on File Type Date Recorded Patient Chemist Physical Expl anation Advance Directives and Living Will 04/29/2021 12:00 AM ADVANCE DIRECTIVE / LIVING WILL LIVING WILL AND HEALTH CARE POA Power of Receiving Weigher 04/29/2021 12:00 AM TOM R OF FINANCIAL DATA ANALYST HEALTH CARE POA Advanced 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
--- OUTSIDE RECORDS SUMMARY | 2023-05-10 20:09 | External Medical Summary | Summary of Care ---
Author Name Unknown Organization [facility] Address [place] [address] Care Team Providers Care Blindstitch Lining Feller Name Role Phone Vanita Dunn MD Primary Care Provid er Encounter Details Date Type Department Care Team Description 06/30/2021 Scan Encounter [facility] [address] [place] [address] Vanita Dunn MD [address] [place] [address] <No scans attached> Allergies Active Allergy Reactions Severity Noted Date Comments Adhesive Tape Itching 04/29/2020 Penicillins Rash 02/12/2008 Perflutren Protein A Microsph 2019 Definity-lower back pain documented as of this encounter (statuses as of 07/01/2021) Medications Medication Sig Dispensed Refills Start Date [...] 120 Vial 11 10/02/2019 Active nystatin (NYSTOP) 443780 UNIT/GM powder Apply topically to affected area [...] 60 Each 3 07/27/2020 Active Dexcom G6 Cardiac Rehab Nurse Device Use as directed. To test [...] Strip 3 10/29/2020 Active OneTouch Delica Plus [id number] TESTING once daily 100 Each 3 10/29/2020 [...] as of this encounter (statuses as of 07/01/2021) Active Problems Problem Noted Date Food insecurity [...] as of this encounter (statuses as of 07/01/2021) Resolved Problems Problem Noted Date Resolved Date [...] pain 01/24/2012 01/17/2017 Genetic Sleep Disorder Research Other*[id number] 05/13/2011 04/07/2016 Obstructive sleep apnea 01/18/2011 12/27/19 [...] as of this encounter (statuses as of 07/01/2021) Immunizations Name Administration Dates Next Due COVID-19 [...] Hematology Oncolog y Nurse, Med 4 [address] [place] [address] [phone] 07/06/2021 Office Visit Hematology Oncology Tono Sanchez MD [address] [place] [address] [phone] 07/16/2021 Office Visit Pharmacy [facility] [address] [place] [address] [phone] 07/22/2021 Office Visit Pulmonary Reynaldo Marquez MD [address] [place] [address] [phone] 07/26/2021 Office Visit Cardiology Qu[facility]en Canseco CRNP [address] [facility] [address] [phone] 07/27/2021 Office [facility] [place] [address] [phone] 08/11/2021 Office Visit Endocrinology Alberta Duque PA-C [address] [place] [id number] 09/09/2021 Imaging Radiology 09/16/2021 Telemedicine Gastroenterology Katherine Moore RDN [address] [facility] [place] [address] [phone] 06/24/2022 Office Visit Sleep Disorders Love Francisco, [address] [place] [address] [phone] Health Maintenance Due Date Last Done Comments [...] this encounter Implants Implanted Type Area Senior Web Architect Device Identifier Shelf Expiration Date Model / Serial / Lot Microtech Sure Clip Implanted:Qty: 2 on 06/03/2020 by Janis Hatch DO at OR [facility] Clip N/A: Colon 04/21/2022 [facility]-F-26-2 35-C-R / / [id number] documented as of this encounter Advance Directives Documents on File Type Date Recorded Patient Traffic Control Technician Expl anation Advance Directives and Living Will 04/29/2021 12:00 AM ADVANCE DIRECTIVE / LIVING WILL LIVING WILL AND HEALTH CARE POA Power of Curator [employer] 04/29/2021 12:00 AM TOM R OF JIG BORE OPERATOR HEALTH CARE POA Advanced Directive service [...]
--- OUTSIDE RECORDS SUMMARY | 2023-05-10 20:09 | External Medical Summary | Summary of Care ---
Author Name Unknown Organization [facility] Address [facility] [place] [address] Care Team Providers Care Ldr Nurse Name Role Phone Vanita Dunn MD Primary Care Provid er Reason for Visit * Reason Onset Date Comments Test Results 06/30/2021 Encounter Details Date Type Department Care Team Description 06/30/2021 Telephone Cardiology, [facility] [address] [place] [address] Mega Hagen MD 132 [facility] [place] [address] [phone] Test Results Allergies Active Allergy Reactions Severity [...] 120 Vial 11 10/02/2019 Active nystatin (NYSTOP) 857167 UNIT/GM powder Apply topically to affected area [...] Each 3 07/27/2020 Active Dexcom G6 Hand Twister Device Use as directed. To test blood [...] once daily 100 Strip 3 10/29/2020 Active [place]Touch Delica Plus Mbglrt42Y TESTING once daily 100 Each 3 10/29/2020 [...] pain 01/24/2012 01/17/2017 Genetic Sleep Disorder Research Other*[id number] 05/13/2011 04/07/2016 Obstructive sleep apnea 01/18/2011 12/27/19 [...] encounter Miscellaneous Notes * Telephone Encounter - Kenya Baer RN - 06/30/2021 1:53 PM EDT Letter sent. 06/30/2021 * Telephone Encounter - Rosie Hanna NRCMA [...] Hematology Oncolog y Nurse, Med [address] [place] [address] [phone] 07/06/2021 Office Visit Hematology Oncology Tono Sanchez MD 200 [place] [address] [phone] 07/16/[address] [facility] [address] [place] [address] [phone] 07/22/2021 Office Visit Pulmonary Reynaldo Marquez MD [address] [place] [address] [phone] 07/26/2021 Office Visit Cardiology Quyen Canseco CRNP [address] [place] [address] [phone] 07/27/2021 Office Visit Gastroenterology Lyssa Stout CRNP 132 [place] [address] [phone] 08/11/2021 Office Visit Endocrinology Alberta Duque PA-C [address], [place] [id number] 09/09/2021 Imaging Radiology 09/16/2021 Telemedicine Gastroenterology Katherine Moore RDN [address] [place] [address] 06/24/2022 Office Visit Sleep Disorders Love Francisco DO [address] [place] [address] [phone] Health Maintenance Due Date Last Done Comments DIABETES-EYE EXAM 06/12/2019 06/12/2018, , 06/12/2018, Additional history exists Dexa Scan 2020 Zoster Vaccines (3 of 3) 06/23/2020 04/28/2020, 11/11 BREAST CANCER SCREENING DISCUSSION YEARLY AGES 40-75 09/08/2021 09/08/2020, 09/02/2019, 04/04/2018, Additional history exists DIABETES-HGBA1C EVERY 6 MONTHS 12/08/2021 06/10/2021, 03/08/2021, 11/30/2020, Additional history exists Yearly B-12 04/01/2022 04/01/2021, 07/09/2020, 07/14/2020, Additional history exists DIABETES-FOOT EXAM 04/05/2022 [...] of this encounter Implants Implanted Type Area Production Intern Device Identifier Shelf Expiration Date Model / Serial / Lot Microtech Sure Clip Implanted:Qty: 2 on 06/03/2020 by Janis Hatch DO at OR [facility] Clip N/A: Colon 04/21/2022 [facility]-F-26-2 35-C-R / / [id number] documented as of this encounter Advance Directives Documents on File Type Date Recorded Patient Line Tender Expl anation Advance Directives and Living Will 04/29/2021 12:00 AM ADVANCE DIRECTIVE / LIVING WILL LIVING WILL AND HEALTH CARE POA Power of Glass Unloading Equipment Tender 04/29/2021 12:00 AM TOM R OF FAST FOOD DELIVERY DRIVER HEALTH CARE POA Advanced 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
--- OUTSIDE RECORDS SUMMARY | 2023-05-10 20:09 | External Medical Summary ---
Author Name UNSPECIFIED Address Unknown Organization [facility] History of Encounters Reason for Assessment: [facility] Inpatient Facility where the patient been admitted: No inpatient facility admission Discharge Disposition: Patient remained in the community (without formal assistive services) Functional Assessment Frequency Of Pain Interferin g With Patient's Activity Or Movement: Daily, but not constantly When Dyspneic: With moderate exerti on (e.g., while dressing, using commode or bedpan, walking distances less than 20 feet) Bowel Incontinence Frequency: Very rarel y or never has bowel incontinence Cognitive and Behavioral and Psychiatric Symptoms: None Current Ability: Bathing: Unable to use the shower or tub, but able to participate in bathing self in bed, at the sink, in bedside chair, or on commode, with the assistance or supervision of another person throughout the bath. Current Ability: Ambulation: Chairfast, unable to ambulate and is unable to wheel self. Current: Management Of Oral Medications: Able to take medication(s) at the correct times if given reminders by another person at the appropriate times Problems Surgical wound: Yes, patient has at least one (observable) surgical wound
--- OUTSIDE RECORDS SUMMARY | 2023-05-10 20:10 | External Medical Summary | Summary of Care ---
Author Name Unknown Organization [facility] Address [place] [address] Care Team Providers Care Pulp Grinder Feeder Name Role Phone Vantia Dunn MD Primary Care Provid er Reason for Visit * Reason Comments Emergency Department Follow-Up [facility] ER Encounter Details Date Type Department Care Team Description 06/30/2021 Office Visit [facility] [address] [place] [address] Brianne Pal PA-C [address] [place] [address] Weakness*; Generalized abdominal pain; Cough; Kidney stone on left side Allergies Active Allergy Reactions Severity Noted Date [...] 120 Vial 11 10/02/2019 Active nystatin (NYSTOP) 287855 UNIT/GM powder Apply topically to affected area [...] 60 Each 3 07/27/2020 Active Dexcom G6 Radiation Protection Engineer Device Use as directed. To test [...] TO ACCESSING. 30 g 3 10/09/2020 Active [employer] Verio In Vitro Strip (Glucose Blood) TESTING once daily 100 Strip 3 10/29/2020 Active OneTouch Delica Plus Zqalia75Q TESTING once daily 100 Each 3 10/29/2020 [...] pain 01/24/2012 01/17/2017 Genetic Sleep Disorder Research Other*[id number] 05/13/2011 04/07/2016 Obstructive sleep apnea 01/18/2011 12/27/19 [...] Sign Reading Time Taken Comments Blood Pressure 118/70 06/30/2021 10:11 AM EDT Pulse 67 06/30/2021 10:11 AM EDT Temperature 36.3 C (97.3 F) 06/30/2021 10:11 AM E DT Respiratory Rate - - Oxygen Saturation 96% 06/30/2021 10:11 AM EDT Inhaled Oxygen Concentration - - [...] Progress Notes * Brianne Pal PA-C - 06/30/2021 10:17 AM EDT Subjective Shaina Bustos is a 66 year old female that presents for Emergency Department Follow-Up ([facility] ER) HPI: Here for er f/u X 2. Was to see Dr Rosales at [facility] on 06/26 for RLQ ttp that was severe. Instructed to go to the er due to severity. At er, ct clear for no appendicitis and showed L sidedkidney stone but there was concern for pyelonephritis so she was started on abx. She returned to er06/28/2021 if she still felt poorly. At that point, urine was growing yeast so patient was treated with IV diflucan and sent home with rx to take for a total of 5 days. (they decided to hold the 2nd option of amphotericin). She was instructed to hold lexapro while on med and gradually reintroduce. The pain is gone as of yesterday. She had no fever but she still does not feel right. She is kind of dizzy and weak and off. She feels terrible and wants to go back to the er. She does not feel right. Chest is rattling a lot. She has a cough. This is not productive. No nausea. Just cannot get mucus up out of her throat. She is covid vaccinated. Was a little better last night but then is worse today. CBC Results: Results for orders placed or performed during the hospital encounter of 06/16/21 CBC Result Value Ref Range WBC 2.87 (L) 4.00 - 10.80 K/uL RBC 2.95 (L) 3.85 - 5.15 M/uL HGB 9.0 (L) 12.0 - 15.3 g/dL HCT 29.4 (L) 36.0 - 45.2 % MCV 99.7 (H) 81.5 - 97.5 fL MCH 30.5 27.0 - 34.0 pg MCHC 30.6 (L) 32.0 - 36.0 g/dL RDW 18.7 (H) 11.5 - 15.5 % MPV 12.8 (H) 6.6 - 11.1 fL Nucleated RBC 0 <=0 /100 WBCs Plt 84 (L) 140 - 400 K/uL Cbc at [facility] shows improvement - wbc up to 3.57, rbc up to 3.18, h&h at 9.3 and 30.2 With platelets up to 92. This is all improved from last lab. Results for orders placed or performed in visit on 06/24/21 ECHO, COMPLETE (2D), TRANS-THORACIC Result Value Ref Range LEFT VENTRICULAR EJECTION FRACTION 55 % *Note: Due to a large number of results and/or encounters for the requested time period, some results have not been displayed. A complete set of results can be found in Results Review. Objective BP 118/70 | Pulse 67 | Temp 36.3 C (97.3 F) (Tympanic) | SpO2 96% There is no height or weight on file to calculate BMI. BP Readings from Last 3 Encounters: 06/30/21 118/70 06/26/21 118/72 06/22/21 124/62 Wt Readings from Last 3 Encounters: 06/16/21 117.9 kg (260 lb) 06/10/21 117.9 kg (260 lb) 04/08/21 117.9 kg (260 lb) Physical exam General: alert,pale- color poor and no distress Head: Normocephalic, No masses, lesions, tenderness or abnormalities Eye Exam: PERRLA, EOMI, sclera clear, anicteric TM: R TMI, L TM with air fluid level Heart: regular rate & rhythm, no gallops, S-1 normal and S-2 normal Lungs: chest symmetric with normal AP diameter, no chest deformities noted, no chest wall tenderness, coarse sounds heard diffusely Abdomen: abdomen soft, normal bowel sounds, no masses or organomegaly and gen guarding and ttp Back: back symmetric, no curvature, no costovertebral angle tenderness, range of motion is normal Extremities: less than 2 second capillary refill Skin: skin color, texture, turgor are normal, no rashes or significant lesions The following labs were reviewed today: CBC Assessment and plan Weakness (Primary) - cbc improved Generalized abdominal pain - recent ct did not reveal cause Cough - she defers testing here as she is planning to attend er later today Kidney stone on left side - non obsturcting per ct She is adamant about going back to the er. Ct at er did not show any cause of her pain, she does have what appears to be yeast in urine and isbeing treated for this. She defers covid testing here Rev er note Total time today including reviewing chart before the visit, pertinent labs, imaging reports, face to face time, and documentation time was 39 minutes. The above was discussed and understanding was expressed. Brianne Pal PA-C documented in this encounter Nursing Notes * Tamara Fabian LPN - 06/30/2021 10:13 AM EDT Chief Complaint Patient presents with Emergency Department Follow-Up [facility] ER documented in this encounter Plan of Treatment Upcoming Encounters Date Type Specialty Care Team Description 07/02/2021 Immunization/Injection Hematology Oncolog y Nurse, Med 4 [address] [facility] [place] [address] [phone] 07/06/2021 Office Visit Hematology Oncology Tono Sanchez MD 200 [place] [address] [phone] 07/16/2021 Office Visit Pharmacy [facility] [address] [place] [address] [phone] 07/22/2021 Office Visit Pulmonary Reynaldo Marquez MD [address] [place] [facility] [place] [address] [phone] 07/26/2021 Office Visit Cardiology [facility]o CRNP [facility] [place] [address] [phone] 07/27/2021 Office Visit [facility]ology [facility]out [facility] [place] [address] [phone] 08/11/2021 Office Visit Endocrinology Alberta Duque PA-C [address] [place] [address] 09/09/2021 Imaging Radiology 09/16/2021 Telemedicine Gastroenterology Katherine Moore RDN [address] [place] [address] 06/24/2022 Office Visit Sleep Disorders Love Francisco DO [address] [facility] [place] [address] [phone] Health Maintenance Due Date Last Done Comments [...] of this encounter Implants Implanted Type Area Polymer Scientist Device Identifier Shelf Expiration Date Model / Serial / Lot Microtech Sure Clip Implanted:Qty: 2 on 06/03/2020 by Janis Hatch DO at OR [facility] Clip N/A: Colon 04/21/2022 [facility]-F-26-2 35-C-R / / [id number] documented as of this encounter Visit Diagnoses Diagnosis Weakness- Primary Other malaise and fatigue Generalized abdominal pain Abdominal pain, generalized Cough Kidney stone on left side Calculus of kidney documented in this encounter Advance Directives Documents on File Type Date Recorded Patient Cold Roll Catcher Expl anation Advance Directives and Living Will 04/29/2021 12:00 AM ADVANCE DIRECTIVE / LIVING WILL LIVING WILL AND HEALTH CARE POA Power of Welder Operator 04/29/2021 12:00 AM TOM R OF FUNCTIONAL CONSULTANT HEALTH CARE POA Advanced 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 p Communication Syed Bustos Spouse Emergency Contact "
--- OUTSIDE RECORDS SUMMARY | 2023-05-10 20:10 | External Medical Summary | Summary of Care ---
Author Name Unknown Organization [facility] Address [place] [address] Care Team Providers Care Body Team Member Name Role Phone Vanita Dunn MD Primary Care Provid er Encounter Details Date Type Department Care Team Description 06/28/2021 Scan Encounter [facility] [address] [place] [address] Vanita Dunn MD [address] [place] [address] <No scans attached> Allergies Active [...] 120 Vial 11 10/02/2019 Active nystatin (NYSTOP) 560647 UNIT/GM powder Apply topically to affected area [...] 60 Each 3 07/27/2020 Active Dexcom G6 Tube Backer Device Use as directed. To test blood [...] Strip 3 10/29/2020 Active OneTouch Delica Plus Svxpyw17S TESTING once daily 100 Each 3 10/29/2020 [...] pain 01/24/2012 01/17/2017 Genetic Sleep Disorder Research Other*[id number] 05/13/2011 04/07/2016 Obstructive sleep apnea 01/18/2011 12/27/19 [...] Encounters Date Type Specialty Care Team Description 06/30/2021 Office Visit Family Medicine Brianne Pal PA-C [address] [place] [address] [phone] 07/02/2021 Immunization/Injection Hematology Oncolog y Nurse, Med 4 [address] [place] [address] [phone] 07/06/2021 Office Visit Hematology Oncology Tono Sanchez MD [address] [place] [address] [phone] 07/16/2021 Office Visit Pharmacy [facility] [address] [place] [address] [phone] 07/22/2021 Office Visit Pulmonary Reynaldo Marquez MD [address] [facility] [address] [phone] 07/26/2021 Office Visit [facility]iology [facility]seco CRNP [facility] [place] [address] [phone] 07/27/2021 Office Visit Gastroenterology Lyssa Stout CRNP [address] [place] [address] [phone] 08/11/2021 Office Visit Endocrinology Alberta Duque PA-C [address] [place] [address] [phone] 09/09/2021 Imaging Radiology 09/16/2021 Telemedicine Gastroenterology Katherine Moore RDN [address] [facility] [place] [place] [address] [phone] 06/24/2022 Office Visit Sleep Disorders Love Francisco, DO [address] [place] [address] Health Maintenance Due Date Last Done Comments [...] of this encounter Implants Implanted Type Area Experimental Worker Device Identifier Shelf Expiration Date Model / Serial / Lot Microtech Sure Clip Implanted:Qty: 2 on 06/03/2020 by Janis Hatch DO at OR [facility] Clip N/A: Colon 04/21/2022 [facility]-F-26-2 35-C-R / / [id number] documented as of this encounter Advance Directives Documents on File Type Date Recorded Patient Orthopaedic Physician Assistant Expl anation Advance Directives and Living Will 04/29/2021 12:00 AM ADVANCE DIRECTIVE / LIVING WILL LIVING WILL AND HEALTH CARE POA Power of Test Conductor 04/29/2021 12:00 AM TOM R OF CABIN CREW HEALTH CARE POA Advanced 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
--- OUTSIDE RECORDS SUMMARY | 2023-05-10 20:10 | External Medical Summary | Summary of Care ---
Author Name Unknown Organization [facility] Address [facility] [place] [address] Care Team Providers Care Director Of Medical Education Name Role Phone Vanita Dunn MD Primary Care Provid er Reason for Visit * Reason Onset Date Comments Test Results 06/30/2021 Encounter Details Date Type Department Care Team Description 06/30/2021 Telephone Cardiology, [facility] [address] [place] [address] Mega Hagen MD 132 [facility] [place] [address] [phone] Test Results Allergies Active Allergy Reactions Severity [...] 120 Vial 11 10/02/2019 Active nystatin (NYSTOP) 289087 UNIT/GM powder Apply topically to affected area [...] 60 Each 3 07/27/2020 Active Dexcom G6 Distribution Specialist Device Use as directed. To test [...] once daily 100 Strip 3 10/29/2020 Active WecashTouch Delica Plus Rfawkw60Q TESTING once daily 100 Each 3 10/29/2020 [...] pain 01/24/2012 01/17/2017 Genetic Sleep Disorder Research Other*[id number] 05/13/2011 04/07/2016 Obstructive sleep apnea 01/18/2011 12/27/19 [...] Hematology Oncolog y Nurse, Med 4 [address] [place] [address] [phone] 07/06/2021 Office Visit Hematology Oncology Tono Sanchez MD [address] [facility] [place] [address] [phone] 07/16/2021 Office Visit [address] [address] [phone] 07/22/2021 Office Visit Pulmonary Reynaldo Marquez MD [address] [place] [address] [phone] 07/26/2021 Office Visit Cardiology Quyen Canseco, ZAK [address] [facility] [address] [phone] 07/27/2021 Office Visit Gastroenterology Lyssa Stout CRNP [address] [facility] [place] [address] [phone] 08/11/2021 Office Visit Endocrinology Alberta Duque PA-C [address] [place] [address] 09/09/2021 Imaging Radiology 09/16/2021 Telemedicine Gastroenterology Katherine Moore RDN [address] [place] [address] 06/24/2022 Office Visit Sleep Disorders Love Francisco, [address] [facility] [address] [phone] Health Maintenance Due Date Last Done Comments [...] of this encounter Implants Implanted Type Area Sql Tech Device Identifier Shelf Expiration Date Model / Serial / Lot Microtech Sure Clip Implanted:Qty: 2 on 06/03/2020 by Janis Hatch DO at OR [facility] Clip N/A: Colon 04/21/2022 [facility]-F-26-2 35-C-R / / [id number] documented as of this encounter Advance Directives Documents on File Type Date Recorded Patient Meat Manager Expl anation Advance Directives and Living Will 04/29/2021 12:00 AM ADVANCE DIRECTIVE / LIVING WILL LIVING WILL AND HEALTH CARE POA Power of Housekeeping Supervisor 04/29/2021 12:00 AM TOM R OF ADJUNCT PHYSICAL EDUCATION INSTRUCTOR HEALTH CARE POA Advanced 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
--- OUTSIDE RECORDS SUMMARY | 2023-05-10 20:11 | External Medical Summary | Summary of Care ---
Author Name Unknown Organization [facility] [place] [address] Care Team Providers Care Computer Assembler Name Role Phone Vanita Dunn MD Primary Care Provid er Reason for Visit * Reason Onset Date Comments Emergency Department Follow-Up 06/28/2021 Encounter Details Date Type Department Care Team Description 06/28/2021 Telephone [facility] [address] [place] [address] Vanita Dunn MD [address] [place] [address] Emergency Department Follow-Up Allergies Active Allergy Reactions Severity Noted Date Comments Adhesive Tape Itching 04/29/2020 Penicillins Rash 02/12/2008 Perflutren Protein A Microsph 2019 Definity-lower back pain documented as of this encounter (statuses as of 06/28/2021) Medications Medication Sig Dispensed Refills Start Date [...] 120 Vial 11 10/02/2019 Active nystatin (NYSTOP) 842826 UNIT/GM powder Apply topically to affected area [...] 60 Each 3 07/27/2020 Active Dexcom G6 Acupuncture Physician Device Use as directed. To test [...] Strip 3 10/29/2020 Active OneTouch Delica Plus [id number] TESTING once daily 100 Each 3 10/29/2020 [...] as of this encounter (statuses as of 06/28/2021) Active Problems Problem Noted Date Food insecurity [...] as of this encounter (statuses as of 06/28/2021) Resolved Problems Problem Noted Date Resolved Date [...] pain 01/24/2012 01/17/2017 Genetic Sleep Disorder Research Other*[id number] 05/13/2011 04/07/2016 Obstructive sleep apnea 01/18/2011 12/27/19 [...] as of this encounter (statuses as of 06/28/2021) Immunizations Name Administration Dates Next Due COVID-19 [...] encounter Miscellaneous Notes * Telephone Encounter - Linnette Mcdonald LPN - 06/28/2021 9:44 AM EDT Emergency Department Follow Up: When was patient seen: 06.26.21 Which ED: [facility] What were they seen for: pain in lower right side. What testing did they have done: lab work and ct scan What did ED think was wrong (dx): Found something on right kidney. Any new medications prescribed: abx and pain medication. How is patient feeling today: like she does not want to get out of bed is still having slight pain. Patient concerns today: No. Appt scheduled for 06.30.21 * Telephone Encounter - Marii Sheets OSA - 06/28/2021 9:42 AM EDT Reason for patient's call: ED follow up Caller was transferred to [facility] at the nurse line. documented in this encounter Plan of Treatment Upcoming Encounters Date Type Specialty Care Team Description 06/30/2021 Office Visit Family Medicine [facility] Pal [facility]-C [address] [facility] [id number] 07/02/2021 Immunization/Injection Hematology Oncolog y Nurse, Med 4 [address] [facility] [address] [phone] 07/06/2021 Office Visit Hematology Oncology Tono Sanchez MD [address] [place] [address] [phone] 07/16/2021 Office Visit Pharmacy [address] [address] [phone] 07/22/2021 Office Visit Pulmonary Reynaldo Marquez MD [address] [place] [facility] [place] [address] [phone] 07/26/2021 Office Visit Cardiology Quyen Canseco CRNP [address] [facility] [place] [address] [phone] 07/27/2021 Office Visit Gastroenterology Lyssa Stout CRNP [address] [place] [address] [phone] 08/11/2021 Office Visit Endocrinology Alberta Duque PA-C [address] [place] [address] 09/09/2021 Imaging Radiology 09/16/2021 Telemedicine Gastroenterology Katherine Moore RDN [address] [place] [address] 06/24/2022 Office Visit Sleep Disorders Love Francisco DO [address] [facility] [address] [phone] Health Maintenance Due Date Last Done Comments DIABETES-EYE EXAM 06/12/2019 06/12/2018, , 06/12/2018, Additional history exists Dexa Scan 2020 Zoster Vaccines (3 of 3) 06/23/2020 04/28/2020, 11/11 BREAST CANCER SCREENING DISCUSSION YEARLY AGES 40-75 09/08/2021 09/08/2020, 09/02/2019, 04/04/2018, Additional history exists DIABETES-HGBA1C EVERY 6 MONTHS 12/08/2021 06/10/2021, 03/08/2021, 11/30/2020, Additional history exists Yearly B-12 04/01/2022 04/01/2021, 0709/2020, 07/14/2020, Additional history exists DIABETES-FOOT EXAM 04/05/2022 [...] of this encounter Implants Implanted Type Area Tech Writer Device Identifier Shelf Expiration Date Model / Serial / Lot Microtech Sure Clip Implanted:Qty: 2 on 06/03/2020 by Janis Hatch DO at OR [facility] Clip N/A: Colon 04/21/2022 [facility]-F-26-2 35-C-R / / [id number] documented as of this encounter Advance Directives Documents on File Type Date Recorded Patient Brick Baker Expl anation Advance Directives and Living Will 04/29/2021 12:00 AM ADVANCE DIRECTIVE / LIVING WILL LIVING WILL AND HEALTH CARE POA Power of Remote Broadcast Technician 04/29/2021 12:00 AM TOM R OF [place] OPERATOR HEALTH CARE POA Advanced Directive service [...] Name Relationship Healthcare Agent [facility] p Communication Syed Bustos Spouse Emergency Contact
--- OUTSIDE RECORDS SUMMARY | 2023-05-10 20:11 | External Medical Summary | Summary of Care ---
Author Name Unknown Organization [facility] [place] [address] Care Team Providers Care Tool Setter Apprentice Name Role Phone Vanita Dunn MD Primary Care Provid er Encounter Details Date Type Department Care Team Description 06/26/2021 Scan Encounter [facility] [address] [place] [address] Vanita Dunn MD [address] [place] [address] <No scans attached> Allergies Active [...] 120 Vial 11 10/02/2019 Active nystatin (NYSTOP) 679125 UNIT/GM powder Apply topically to affected area [...] 60 Each 3 07/27/2020 Active Dexcom G6 Dairy Bacteriologist Device Use as directed. To test blood [...] Strip 3 10/29/2020 Active OneTouch Delica Plus [id number] TESTING once daily 100 Each 3 10/29/2020 [...] pain 01/24/2012 01/17/2017 Genetic Sleep Disorder Research Other*[id number] 05/13/2011 04/07/2016 Obstructive sleep apnea 01/18/2011 12/27/19 [...] Family Medicine Brianne Pal PA-C [address] [place] [address] [phone] 07/02/2021 Immunization/Injection Hematology Oncolog y Nurse, Med 4 [address] [place] [address] [phone] 07/06/2021 Office Visit Hematology Oncology Tono Sanchez MD [address] [place] [address] [phone] 07/16/2021 Office Visit Pharmacy [facility] [address] [place] [address] [phone] 07/22/2021 Office Visit Pulmonary [facility]aldo Marquez MD [address] [facility] [address] [phone] 07/26/2021 Office Visit Cardiology [facility]yen Canseco CRNP [address] [facility] [place] [address] [phone] 07/27/2021 Office Visit Gastroenterology Lyssa Stout CRNP [address] [place] [address] [phone] 08/11/2021 Office Visit Endocrinology Alberta Duque PA-C [address] [place] [address] [phone] 09/09/2021 Imaging Radiology 09/16/2021 Telemedicine Gastroenterology Katherine Moore RDN [address] [facility] [place] [address] [phone] 06/24/2022 Office Visit Sleep Disorders Love Francisco, [...] of this encounter Implants Implanted Type Area Forestry Adviser Device Identifier Shelf Expiration Date Model / Serial / Lot Microtech Sure Clip Implanted:Qty: 2 on 06/03/2020 by Janis Hatch DO at OR [facility] Clip N/A: Colon 04/21/2022 [facility]-F-26-2 35-C-R / / [id number] documented as of this encounter Advance Directives Documents on File Type Date Recorded Patient Credit And Collection Manager Expl anation Advance Directives and Living Will 04/29/2021 12:00 AM ADVANCE DIRECTIVE / LIVING WILL LIVING WILL AND HEALTH CARE POA Power of Rim Fire Charger Operator 04/29/2021 12:00 AM TOM R OF COLOR CARD MAKER HEALTH CARE POA Advanced 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
--- OUTSIDE RECORDS SUMMARY | 2023-05-10 20:11 | External Medical Summary | Summary of Care ---
Author Name Unknown Organization [facility] Address [place] [address] Care Team Providers Care Teacher Dramatics Name Role Phone Vanita Dunn MD Primary Care Provid er Reason for Visit * Reason Onset Date Comments Advice 05/26/2021 leaking CPAP mas k; requesting new appt Encounter Details Date Type Department Care Team Description 05/26/2021 Telephone Pulmonary Medicine, [facility] [address] [facility] [place] [address] Love Francisco [facility] [place] [address] Advice (leaking CPAP mask; requesting new ... Allergies Active Allergy Reactions Severity Noted Date Comments Adhesive Tape Itching 04/29/2020 Penicillins Rash 02/12/2008 Perflutren Protein A Microsph 2019 Definity-lower back pain documented as of this encounter (statuses as of 06/17/2021) Medications Medication Sig Dispensed Refills Start Date [...] 120 Vial 11 10/02/2019 Active nystatin (NYSTOP) 977491 UNIT/GM powder Apply topically to affected area [...] 60 Each 3 07/27/2020 Active Dexcom G6 Delivery Person Device Use as directed. To test [...] TO ACCESSING. 30 g 3 10/09/2020 Active Raffstar Verio In Vitro Strip (Glucose Blood) TESTING once daily 100 Strip 3 10/29/2020 Active OneTouch Delica Plus [id number] TESTING once daily 100 Each 3 10/29/2020 Active Linzess 290 MCG Oral Capsule (linaCLOtide) TAKE 1 CAPSULE BY MOUTH ONCE DAILY BEFORE BREAKFAST 90 Cap 1 11/29/2020 Active BD Pen Needle Mini U/F 31G X 5 MM (Insulin Pen Needle)Indications:T ype 2 diabetes mellitus with hemoglobin A1c goal of less than 7.0% ([facility]) Use to inject insulin four times daily; E11.42 400 Each 3 12/05/2020 Active Escitalopram Oxalate 20 MG Oral Tablet (Lexapro)Indications :Recurrent major depressive disorder, in partial remission ([facility]) TAKE 1 TABLET BY MOUTH ONCE DAILY [...] less than 7.0% ([facility]) Inject one pen (4.5 mg) under the [...] mouth daily. 60 Tab 5 05/26/2021 Active documented as of this encounter (statuses as of 06/17/2021) Active Problems Problem Noted Date Food insecurity [...] as of this encounter (statuses as of 06/17/2021) Resolved Problems Problem Noted Date Resolved Date [...] pain 01/24/2012 01/17/2017 Genetic Sleep Disorder Research Other*[id number] 05/13/2011 04/07/2016 Obstructive sleep apnea 01/18/2011 12/27/19 [...] as of this encounter (statuses as of 06/17/2021) Immunizations Name Administration Dates Next Due COVID-19 mRNA, LNP-s, No Pre serve, 2-Dose Series (Moderna) 12/21/2020,11/23/2020 HEP A - Hepatitis A (Adult > 18 yrs) 09/24/2018, 03/26/2018 Hepatitis B, 20+ yrs 09/24/2018,04/23/2018,03/26 Pneumococcal Conjugate Vacc, 13 Valent (Prevnar) 05/02/2019 Pneumococcal Polysaccharide PPV23 (Pneumovax) 06/01/2010 Seasonal Influenza, Quadriva lent, No Preserve, 6 [...] encounter Miscellaneous Notes * Telephone Encounter - Julia Quijano OSA - 06/17/2021 11:52 AM EDT Patient is scheduled * Telephone Encounter - Janett Moya LPN - 05/26/2021 1:29 PM EDT Pt hasn't been seen in sleep since 2018, but would like to r/s to be seen by sleep provider again. Please reach out to pt to schedule in the clinic with sleep provider. * Telephone Encounter - Janett Moya LPN - 05/26/2021 1:29 PM EDT Pt will contact her DME re: getting new mask fitting. * Telephone Encounter - Iva Zhang OSA - 05/26/2021 11:12 AM EDT Pt's sleep apnea mask does not seem to be fitting her correctly. She feels air coming out the sides. Please call to discuss. documented in this encounter Plan of Treatment Upcoming Encounters Date Type Specialty Care Team Description 06/22/2021 Office Visit Sleep Disorders Love Francisco, [address] [place] [address] [address] [phone] 06/24/2021 Cardiac Studies Cardiac Studies , Agriculture Teacher 1 [address] [place] [address] [phone] 06/28/2021 Office Visit Pharmacy [facility] [address] [place], [place] [address] 07/02/2021 Immunization/Injection Hematology Oncolog y Nurse, Med 4 [address] [place] [address] [phone] 07/06/2021 Office Visit Hematology Oncology Tono Sanchez MD [address] [place] [address] [phone] 07/22/2021 Office Visit Pulmonary Reynaldo Marquez MD [address] [place], [place] [address] 07/26/2021 Office Visit Cardiology Quyen Canseco CRNP [address] [facility] [place] [address] [phone] 07/27/2021 Office Visit Gastroenterology Lyssa Stout CRNP [address] [facility] [place] [address] [phone] 08/11/2021 Office Visit Endocrinology Alberta Duque PA-C [address] [place] [address] 09/09/2021 Imaging Radiology 09/16/2021 Telemedicine Gastroenterology Katehrine Moore RDN [address] [place] [address] Health Maintenance Due Date Last Done Comments [...] of this encounter Implants Implanted Type Area Quiller Runner Device Identifier Shelf Expiration Date Model / Serial / Lot Microtech Sure Clip Implanted:Qty: 2 on 06/03/2020 by Janis Hatch DO at OR [facility] Clip N/A: Colon 04/21/2022 [facility]-F-26-2 35-C-R / / [id number] documented as of this encounter Advance Directives Documents on File Type Date Recorded Patient Meat Soaker Expl anation Advance Directives and Living Will 04/29/2021 12:00 AM ADVANCE DIRECTIVE / LIVING WILL LIVING WILL AND HEALTH CARE POA Power of Sack Cleaning Hand 04/29/2021 12:00 AM TOM R OF GLUE BONE CRUSHER HEALTH CARE POA Advanced 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 File Name Relationship Healthcare Agent [facility] p Communication Syed Bustos Spouse Emergency Contact
--- OUTSIDE RECORDS SUMMARY | 2023-05-10 20:11 | External Medical Summary | Summary of Care ---
Author Name Unknown Organization [facility] Address [facility] [place] [address] Care Team Providers Care Book Retailer Name Role Phone Vanita Dunn MD Primary Care Provid er Reason for Visit * Reason Comments Follow Up Sleep Apnea Encounter Details Date Type Department Care Team Description 06/22/2021 Office Visit Sleep Disorders [facility] [address] [facility] [place] [address] Love [place] [address] [place] [address] Obstructive sleep apnea*; Nocturnal hypoxemia Allergies Active Allergy Reactions Severity Noted Date Comments Adhesive Tape Itching 04/29/2020 Penicillins Rash 02/12/2008 Perflutren Protein A Microsph 2019 Definity-lower back pain documented as of this encounter (statuses as of 06/22/2021) Medications Medication Sig Dispensed Refills Start Date [...] 120 Vial 11 10/02/2019 Active nystatin (NYSTOP) 444693 UNIT/GM powder Apply topically to affected area [...] 60 Each 3 07/27/2020 Active Dexcom G6 Chief Juvenile Probation Officer Device Use as directed. To [...] Strip 3 10/29/2020 Active OneTouch Delica Plus [id number] TESTING once daily 100 Each 3 10/29/2020 [...] as of this encounter (statuses as of 06/22/2021) Active Problems Problem Noted Date Food insecurity [...] as of this encounter (statuses as of 06/22/2021) Resolved Problems Problem Noted Date Resolved Date [...] pain 01/24/2012 01/17/2017 Genetic Sleep Disorder Research Other*[id number] 05/13/2011 04/07/2016 Obstructive sleep apnea 01/18/2011 12/27/19 [...] as of this encounter (statuses as of 06/22/2021) Immunizations Name Administration Dates Next Due COVID-19 [...] Reading Time Taken Comments Blood Pressure 124/62 06/22/2021 1:57 PM EDT Pulse 66 06/22/2021 1:57 PM EDT Temperature 35.8 C (96.4 F) 06/22/2021 1:57 PM ED T Respiratory Rate 16 06/22/2021 1:57 PM EDT Oxygen Saturation 95% 06/22/2021 1:57 PM EDT Inhaled Oxygen Concentration - - Weight - - Height 149.9 cm (4' 11") 06/22/2021 1:57 PM EDT Body Mass Index - - documented in [...] this encounter Progress Notes * Love Francisco, - 06/22/2021 1:54 PM EDT Sleep Medicine Evaluation [address] [address] HPI: Shaina Bustos is a(n) 66 year old female presenting for evaluation and management of THAD. Initially diagnosed with sleep apnea after presenting with snoring. PSG 2007: AHI 33. PAP titration 08/27/2013: BiPAP 18/10 cmH2O with 2 L/min oxygen. Using BiPAP 18/10 cmH2O with 2 L/min oxygen ( states he sets the oxygen "to the middle", unsure if this is actually a setting of 2 L/min). The BiPAP is making screeching noises. Unsure how long she has had the current device. (Staff checked with DME: it was last replaced December 2017). Patient reports a variable bedtime. It takes 5-10 minutes to fall asleep with BiPAP on. Patient awakens 1+ times overnight, to go to the bathroom. It takes a few minutes to return to sleep. Patient awakens for the day at varying times, feeling rested. Patient does sometimes take an afternoon nap. Patient does not use much caffeine. Sometimes soda or tea. Subjective PAP adherence: excellent Sleep refreshing on PAP: yes Snoring on PAP: none that is obvious. Daytime sleepiness: sometimes Daytime napping: sometimes Drowsy driving: N/A (she does not drive) Interface: FFM Mask leak: sometimes around the cheek/chin. More when it gets worn out. Dry nose or dry mouth: dry mouth, not sure it's from the BiPAP. Use humidifier? yes Rash from mask: no Aerophagia: occasional burping. Nasal allergies: no Heartburn: no RLS symptoms: no Morning headaches: no, but she gets HAs during the day. Coughing/sneezing/wheezing with PAP on: no Cleaning: by hand Recent weight change: stable Parasomnias Symptoms: no Dream-enactment Excessive Daytime Sleepiness: [place] Sleepiness Scale 9 Modified F.O.S.Q. 32 [place] Sleepiness Scale Question 06/22/2021 1:54 PM EDT - Filed by Emmy Guzman LPN What is the chance you will doze off in the following situation? Sitting and reading High chance of dozing Watching TV High chance [...] When sitting quietly after lunch without alcohol No chance of dozing In a car, while stopped for a few minutes in traffic No chance of dozing Score (range: 0 - 24) 9 Functional Outcomes Of Sleep Question 06/22/2021 1:55 PM EDT - Filed by Emmy Guzman LPN Please complete the following questions. Do you have difficulty concentrating because you are sleepy or tired? Yes, a little Do you have difficulty remembering things because you are sleepy or tired? Yes, a little Do you have difficulty operating a motor vehicle for short distances (less than 100 miles) because you become sleepy? No Do you have difficulty operating a motor vehicle for long distances (more than 100 miles) because you become sleepy? No Do you have difficulty visiting family or friends in their home because you become sleepy or tired?No Has your relationship with family, friends, or work colleagues been affected because you are sleepyor tired? No Do youhave difficulty watching a movie or video because you become sleepy or tired? Yes, extreme Do you have difficulty being as active as you want to be in the evening because you are tired or sleepy? No Do you have difficulty being as active as you want to be in the morning because you are tired or sleepy? Yes, extreme Has your mood been affected because you are sleepy or tired? No Score (range: 10 - 40) 32 CPAP Compliance: Report date: 06/16/21 % total days used: 100% % days used > 4 hours: 96.7% Average hours per day used: 7h 33m Large leak: 3 min AHI: 3.1 /hr Pressure settin/10 cmH2O Equipment: DME Provider is [facility]. Uses a [employer] BiPAP. PMH: Past Medical History: Diagnosis Date Cerebral palsy [...] BONE performed by Josh Vazquez MD at [facility] DELIVERY 04/20/1982 COLONOSCOPY 04/21/2009 repeat in 10 years COLONOSCOPY, DIAGNOSTIC (RECTUM) 10/04/2016 normal bx, repeat 10 yrs/[facility] COLONOSCOPY, DIAGNOSTIC (RECTUM) N/A 06/03/2020 internal hemorrhoids/biopsies show adenomatous polyps/recall 5 years/COLONOSCOPY FLEXIBLE PROXIMAL DIAGNOSTIC performed by Janis Hatch DO at OR [facility] COLONOSCOPY, DIAGNOSTIC (RECTUM) 03/17/2020 poor prep / [facility] DENTAL SURGERY PROCEDURE NEC wisdom teeth x 4 DILATION AND CURETTAGE (D&C) EGD, FLEXIBLE, DIAGNOSTIC 10/04/2016 gastritis/[facility] EGD, FLEXIBLE, DIAGNOSTIC 01/11/2018 eso varices, retained food, repeat 1 yr/[facility] EGD, FLEXIBLE, DIAGNOSTIC N/A 06/03/2020 severe erosive esophagitis/non-bleeding grade II esophageal varices/gastritis/biopsies show inflammatory changes/repeat 3-4 months/ESOPHAGOGASTRODUODENOSCOPY (EGD), FLEXIBLE, TRANSORAL, DIAGNOSTIC per formed by Janis Hatch DO at OR [facility] EGD, FLEXIBLE, DIAGNOSTIC 11/27/2019 eso varices, portal hypertensive gastropathy, gastritis / [facility] EGD, FLEXIBLE, DIAGNOSTIC N/A 08/05/2020 large amount of food in stomach/repeat 1.5 years/ESOPHAGOGASTRODUODENOSCOPY (EGD), FLEXIBLE, TRANSORAL, DIAGNOSTIC performed by Janis Hatch DO at OR [facility] EGD, FLEXIBLE, DIAGNOSTIC N/A 03/10/2021 ESOPHAGOGASTRODUODENOSCOPY (EGD), FLEXIBLE, TRANSORAL, DIAGNOSTIC performed by rKis Blankenship MD [place] 10/05/2020 PELVIS/HIP JOINT SURGERY NEC teenager aid in walking REPAIR/GRAFT ACHILLES TENDON age 40 aid in walking ALLERGIES: Review of patient's allergies indicates: Allergen Reactions Adhesive Tape Itching Pcn [Penicillins] Rash Perflutren Protein A Microsph Definity-lower back pain MEDS: Outpatient Medications Marked as Taking for the 06/22/21 encounter (Office Visit) with Love Francisco DO Medication Sig Tamsulosin HCl 0.4 MG Oral Capsule (Flomax) Take 1 Cap by mouth daily. Levothyroxine Sodium 175 MCG Oral Tablet (Levoxyl) [...] - total of 6 a day max Lantus SoloStar 100 UNIT/ML Subcutaneous Solution Pen-injector (Insulin Glargine) inject 32 units under skin at bedtime metFORMIN HCl ER 500 MG Oral Tablet Extended Release 24 Hour (Glucophage XR) Take one tablet bymouth daily with a meal Docusate Sodium 100 MG Oral Capsule (Colace) TAKE 1 CAPSULE BY MOUTH ONCE DAILY Spironolactone 25 MG Oral Tablet (Aldactone) Take 2 Tabs by mouth daily. Oxybutynin Chloride 5 MG Oral Tablet (Ditropan) TAKE 1 TABLET BY MOUTH TWICE DAILY Nadolol 40 MG Oral Tablet (Corgard) Take 1 tablet daily. Senna-Docusate Sodium 8.6-50 MG Oral Tablet Take 1 Tab by mouth daily. Trulicity 4.5 MG/0.5ML Subcutaneous Solution Pen-injector (Dulaglutide) Inject one pen (4.5 mg)under the skin once weekly Furosemide 20 MG Oral Tablet (Lasix) Take 1 Tab by mouth daily as needed. EDEMA NovoLOG FlexPen 100 UNIT/ML Subcutaneous Solution Pen-injector Inject under the skin three times a day before meals. Sliding scale Potassium Chloride Selena ER 10 MEQ Oral Tablet Extended Release Take 10 mEq by mouth daily at noon. Aspirin 81 MG Oral Tablet Chewable Take 1 Tab by mouth daily. Atorvastatin Calcium 80 MG Oral Tablet (Lipitor) Take 1 Tab by mouth at bedtime. Isosorbide Mononitrate ER 30 MG Oral Tablet Extended Release 24 Hour (Imdur) Take 1 Tab by mouth daily. Cyclobenzaprine HCl 10 MG Oral Tablet (Flexeril) TAKE 1 TABLET ONCE DAILY AT BEDTIME BiPAP every night at bedtime. Nitroglycerin 0.4 MG Sublingual Tablet Sublingual (Nitrostat) Place 1 Tab under the tongue every 5 minutes as needed for Pain, Chest. up to 3 doses in 15 minutes Cinnamon 500 MG Oral Capsule Take 500 mg by mouth daily. Escitalopram Oxalate 20 MG Oral Tablet (Lexapro) TAKE 1 TABLET BY MOUTH ONCE DAILY Linzess 290 MCG Oral Capsule (linaCLOtide) TAKE 1 CAPSULE BY MOUTH ONCE DAILY BEFORE BREAKFAST Lidocaine-Prilocaine 2.5-2.5 % External Cream (Emla) Apply topically to affected area as neededfor Other (for port). APPLY TO SKIN OVER MEDIPORT & COVER 1HR PRIOR TO ACCESSING. Fluticasone-Salmeterol 250-50 MCG/DOSE Inhalation Aerosol Powder Breath Activated (Advair Diskus) Inhale 1 Puff by mouth 2 times a day. Ipratropium-Albuterol 0.5-2.5 (3) MG/3ML Inhalation Solution (DUONEB) Inhale 3 mL via nebulizer4 times a day. (Patient taking differently: Inhale 3 mL via nebulizer 4 times a day as needed for Shortness of Breath.) silver sulfadiazine (SILVADENE) 1 % cream Apply topically to affected area daily. Apply to right great toe Albuterol Sulfate (ALBUTEROL HFA) 108 (90 BASE) MCG/ACT inhaler Inhale 2 Puffs by mouth every 4hours as needed for Cough or Wheezing. With spacer nystatin (NYSTOP) 413356 UNIT/GM powder Apply topically to affected area 3 times a day. albuterol sulfate (PROVENTIL) (2.5 MG/3ML) 0.083% nebulizer solution Inhale 1 Vial via nebulizer every 6 hours as needed for Wheezing. vitamin c (ASCORBIC ACID) 500 MG Tablet Take 500 mg by mouth daily. CENTRUM SILVER PO TABS Take 1 Tab by mouth daily. Note: she takes trazodone nightly. FHx: sister has sleep apnea Social hx: -Tobacco: none -EtOH: none -Drug use: none PE: VITAL SIGNS: Filed Vitals: 06/22/21 1357 BP: 124/62 Pulse: 66 Resp: 16 Temp: 35.8 C (96.4 F) TempSrc: Tympanic SpO2: 95% Height: (!) 1.499 m (4' 11") Body mass index is 52.51 kg/m. GEN: Ambulatory, obese, NAD ORAL: Tongue enlarged Hard palate normal Oral mucous membranes moist OP: Soft palate normal Gama IV NECK: Circumference enlarged RESP: Unlabored respirations + wheezing CVS: Regular rate and rhythm NEURO: Speech clear and appropriate In motor scooter ASSESSMENT/PLAN: Obstructive sleep apnea - severe by AHI criteria, associated with nocturnal hypoxemia - good adherence; encourage continued use of BiPAP with all sleep. - good efficacy of therapy; continue PAP at current setting 18/10 cmH2O - DME: [facility] - Request DME check her device and repair or replace due to screeching noise. - Routine cleaning and change of supplies as needed. - Continue to avoid driving when feeling sleepy/drowsy (she does not drive). Nocturnal hypoxemia - continue oxygen 2 L/min via BiPAP with all sleep. - nocturnal oximetry on current settings; phone call with result. Follow-up with Sleep Medicine in 1 year (sooner if needed for insurance if device is replaced). Love Francisco DO documented in this encounter Nursing Notes * Emmy Guzman LPN - 06/22/2021 1:58 PM EDT Pt here to re-est care. States cpap makes noises Neck 18 inch DME:[facility] [place] Sleepiness Scale Question 06/22/2021 1:54 PM EDT - Filed by Emmy Guzman LPN What is the chance you will doze off in the following situation? Sitting and reading High chance of dozing Watching TV High chance [...] When sitting quietly after lunch without alcohol No chance of dozing In a car, while stopped for a few minutes in traffic No chance of dozing Score (range: 0 - 24) 9 Functional Outcomes Of Sleep Question 06/22/2021 1:55 PM EDT - Filed by Emmy Guzman LPN Please complete the following questions. Do you have difficulty concentrating because you are sleepy or tired? Yes, a little Do you have difficulty remembering things because you are sleepy or tired? Yes, a little Do you have difficulty operating a motor vehicle for short distances (less than 100 miles) because you become sleepy? No Do you have difficulty operating a motor vehicle for long distances (more than 100 miles) because you become sleepy? No Do you have difficulty visiting family or friends in their home because you become sleepy or tired?No Has your relationship with family, friends, or work colleagues been affected because you are sleepyor tired? No Do youhave difficulty watching a movie or video because you become sleepy or tired? Yes, extreme Do you have difficulty being as active as you want to be in the evening because you are tired or sleepy? No Do you have difficulty being as active as you want to be in the morning because you are tired or sleepy? Yes, extreme Has your mood been affected because you are sleepy or tired? No Score (range: 10 - 40) 32 documented in this encounter Plan of Treatment Upcoming Encounters Date Type Specialty Care Team Description 06/24/2021 Cardiac Studies Cardiac Studies Gw, Lost And Found Clerk [address] [place] [address] [phone] 06/28/2021 Office Visit Pharmacy [address] [address] [phone] 07/02/2021 Immunization/Injection Hematology Oncolog y Nurse, Med [address] [place] [address] [phone] 07/06/2021 Office Visit Hematology Oncology Tono Sanchez MD [address] [place] [address] [phone] 07/22/2021 Office Visit Pulmonary Reynlado Marquez MD [address] [place] [address] [phone] 07/26/2021 Office Visit Cardiology Quyen Canseco CRNP [address] [place] [address] [phone] 07/27/2021 Office Visit [facility] Stout, ZAK [facility] [address] [phone] 08/11/2021 Office Visit Endocrinology Alberta Duque PA-C [address] [place] [address] 09/09/2021 Imaging Radiology 09/16/2021 Telemedicine Gastroenterology Katherine Moore, [place] [address] [place] [address] 06/24/2022 Office Visit Sleep Disorders Love Francisco DO [facility] [place] [address] [phone] Scheduled Orders Name Type Priority Associated Diagnoses Orde r Schedule NOCTURNAL HOME OXIMETRY (OP) Procedures Routine Obstructive sleep apnea Nocturnal hypoxemia Ordered: 06/22/2021 Health Maintenance Due Date Last Done Comments [...] of this encounter Implants Implanted Type Area Image Editor Device Identifier Shelf Expiration Date Model / Serial / Lot [employer] Sure Clip Implanted:Qty: 2 on 06/03/2020 by Janis Hatch DO at OR [facility] Clip N/A: Colon 04/21/2022 [facility]-F-26-2 35-C-R / / [id number] documented as of this encounter Visit Diagnoses Diagnosis Obstructive sleep apnea- Primary Obstructive sleep apnea (adult) (pediatric) Nocturnal hypoxemia Hypoxemia documented in this encounter Advance Directives Documents on File Type Date Recorded Patient Can Cutter Expl anation Advance Directives and Living Will 04/29/2021 12:00 AM ADVANCE DIRECTIVE / LIVING WILL LIVING WILL AND HEALTH CARE POA Power of Computer Systems Designer 04/29/2021 12:00 AM TOM R OF MOLD SHEET CLEANER HEALTH CARE POA Advanced 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
--- OUTSIDE RECORDS SUMMARY | 2023-05-10 20:11 | External Medical Summary | Summary of Care ---
Author Name Unknown Organization [facility] Address [facility] [place] [address] Care Team Providers Care Insurance Follow Up Specialist Name Role Phone Vanita Dunn MD Primary Care Provid er Reason for Visit * Reason Comments Acute Encounter Details Date Type Department Care Team Description 06/26/2021 Office Visit Family Medicine [facility] 132 [facility] [place] [address] Di Rosales MD 132 [facility] [place] [id number] Abdominal pain, right lower quadrant* Allergies Active Allergy Reactions Severity Noted Date Comments Adhesive Tape Itching 04/29/2020 Penicillins Rash 02/12/2008 Perflutren Protein A Microsph 2019 Definity-lower back pain documented as of this encounter (statuses as of 06/26/2021) Medications Medication Sig Dispensed Refills Start Date [...] 120 Vial 11 10/02/2019 Active nystatin (NYSTOP) 388459 UNIT/GM powder Apply topically to affected area [...] 60 Each 3 07/27/2020 Active Dexcom G6 Scanner Supervisor Device Use as directed. To test [...] once daily 100 Strip 3 10/29/2020 Active Synergy HubTouch Delica Plus [id number] TESTING once daily 100 Each 3 10/29/2020 [...] as of this encounter (statuses as of 06/26/2021) Active Problems Problem Noted Date Food insecurity [...] breath) 01/30/2021 Uncontrolled type 2 diabetes mellitus [facility] hyperglycemia 07/15/2020 Esophagitis 07/06/2020 Esophageal varices 07/06/2020 [...] as of this encounter (statuses as of 06/26/2021) Resolved Problems Problem Noted Date Resolved Date [...] pain 01/24/2012 01/17/2017 Genetic Sleep Disorder Research Other*[id number] 05/13/2011 04/07/2016 Obstructive sleep apnea 01/18/2011 12/27/19 [...] as of this encounter (statuses as of 06/26/2021) Immunizations Name Administration Dates Next Due COVID-19 [...] Sign Reading Time Taken Comments Blood Pressure 118/72 06/26/2021 8:11 AM EDT Pulse 66 06/26/2021 8:11 AM EDT Temperature 36.3 C (97.3 F) 06/26/2021 8:11 AM ED T Respiratory Rate 20 06/26/2021 8:11 AM EDT Oxygen Saturation - - Inhaled Oxygen [...] as of this encounter Progress Notes * Di Rosales MD - 06/26/2021 8:21 AM EDT Subjective Shaina Bustos is a 66 year old female that presents for No chief complaint on file. Here with sudden onset of right sided abd pain. Described as sharp. NO N/V/D. Tolerating a diet. + normal BM yesterday. NO fever or chills. Improved since yesterday. ROS: Head: no COLON, fevers, chills, no dizzyness or lightheadedness Eyes: no blurred vision, no diplopia Nose: no epistaxsis Ears: no pain or discharge Throat: no sore throat, no dysphagia. Cardiac: no chest pain, palpitations, tachycardia Lung: no sob, cough or wheeze. Abdomen: no nausea, heartburn, constipation or diarrhea. Ext: no edema, no paralysis, no numbness or tingling : no incontinence, no dysuria, no nocturia Skin: no lesions or ulcers. no rash Denies any recent travel or sick contacts All other systems negative expect for what is noted in HPI. Medication list, PMH, PSH, Family history, social history and problem list have been reviewed and updated in the Electronic Medical Record as noted below. Objective BP 118/72 | Pulse 66 | Temp 36.3 C (97.3 F) (Tympanic) | Resp 20 There is no height or weight on file to calculate BMI. BP Readings from Last 3 Encounters: 06/26/21 118/72 06/22/21 124/62 06/16/21 118/83 Wt Readings from Last 3 Encounters: 06/16/21 117.9 kg (260 lb) 06/10/21 117.9 kg (260 lb) 04/08/21 117.9 kg (260 lb) Physical Exam Vitals signs reviewed. HENT: Head: Normocephalic. Eyes: Pupils: Pupils are equal, round, and reactive to light. Neck: Musculoskeletal: Normal range of motion. Cardiovascular: Rate and Rhythm: Normal rate and regular rhythm. Heart sounds: Murmur present. Pulmonary: Effort: Pulmonary effort is normal. Abdominal: Palpations: Abdomen is soft. Tenderness: There is abdominal tenderness (right side of abd ). There is no rebound. Neurological: Mental Status: She is alert. Component Latest Ref Rng & Units 06/16/2021 BUN 6 - 20 mg/dL 17 Creatinine 0.5 - 1.0 mg/dL 0.9 Estimated Glomerular Filtration Rate >=60.0 mL/min 63.4 Sodium 135 - 146 mmol/L 138 Potassium 3.5 - 5.1 mmol/L 4.8 Chloride 98 - 107 mmol/L 110 (H) CO2 22 - 32 mmol/L 20 (L) Anion Gap 7 - 15 mmol/L 8 Glucose 70 - 120 mg/dL 125 (H) Albumin 3.8 - 5.0 g/dL 3.3 (L) AST 10 - 35 U/L 49 (H) Alkaline Phosphatase 35 - 130 U/L 155 (H) Bilirubin, Total <=1.2 mg/dL 0.6 Calcium 8.4 - 10.2 mg/dL 8.9 Protein 6.0 - 8.3 g/dL 7.0 ALT 10 - 35 U/L 29 WBC 4.00 - 10.80 K/uL 2.87 (L) Neutrophils % 40.0 - 75.0 % 49.1 Lymphocytes % 18.0 - 42.0 % 29.3 Monocytes % 1.0 - 11.0 % 12.9 (H) Eosinophils % 0.0 - 6.0 % 7.7 (H) Basophils % 0.0 - 2.0 % 0.7 Immature Granulocyte % 0.0 - 2.0 % 0.3 Absolute Neutrophils 1.80 - 7.70 K/uL 1.41 (L) Absolute Lymphocytes 1.00 - 4.80 K/ul 0.84 (L) Absolute Monocytes 0.00 - 1.10 K/uL 0.37 Absolute Eosinophils 0.00 - 0.70 K/uL 0.22 Absolute Basophils 0.00 - 0.20 K/uL 0.02 Absolute Immature Granulocytes 0.00 - 0.20 K/uL 0.01 WBC 4.00 - 10.80 K/uL 2.87 (L) RBC 3.85 - 5.15 M/uL 2.95 (L) HGB 12.0 - 15.3 g/dL 9.0 (L) HCT 36.0 - 45.2 % 29.4 (L) MCV 81.5 - 97.5 fL 99.7 (H) MCH 27.0 - 34.0 pg 30.5 MCHC 32.0 - 36.0 g/dL 30.6 (L) RDW 11.5 - 15.5 % 18.7 (H) MPV 6.6 - 11.1 fL 12.8 (H) Nucleated RBC <=0 /100 WBCs 0 Plt 140 - 400 K/uL 84 (L) Assessment and plan Abdominal pain, right lower quadrant Tenderness on exam concerning. Would recommend ER evaluation for more urgent imaging evaluation. Will recommend NPO. Follow up Follow Up: Return for keep scheduled appointment. | For: keep scheduled appointment Total time today including reviewing chart before the visit, pertinent labs, imaging reports, face to face time, and documentation time was 32 minutes. The above was discussed and understanding was expressed. Di Rosales MD documented in this encounter Nursing Notes * Kenya Cloud LPN - 06/26/2021 8:11 AM EDT Patient c/o sharp pain just above her hip bone. documented in this encounter Plan of Treatment Upcoming Encounters Date Type Specialty Care Team Description 06/28/2021 Office Visit Pharmacy [place] [address] [place] [address] [phone] 07/02/2021 Immunization/Injection Hematology Oncolog y Nurse, Med 4 [address] [place] [address] [phone] 07/06/2021 Office Visit Hematology Oncology Tono Sanchez MD [address] [facility] [place] [address] [phone] 07/22/2021 Office Visit Pulmonary Reynaldo Marquez MD [address] [place] [address] [phone] 07/26/2021 Office Visit Cardiology Quyen Canseco CRNP [address] [place] [address] [phone] 07/27/2021 Office Visit Gastroenterology Lyssa Stout CRNP [address] [place] [address] [phone] 08/11/2021 Office Visit Endocrinology Alberta Duque PA-C [address] [place] [address] 09/09/2021 Imaging Radiology 09/16/2021 Telemedicine Gastroenterology Katherine Moore RDN [address] [place], [place] [id number] 06/24/2022 Office Visit Sleep Disorders Love Francisco DO [address] [place] [address] [phone] Health Maintenance Due Date Last Done Comments [...] of this encounter Implants Implanted Type Area Ux Interaction Designer Device Identifier Shelf Expiration Date Model / Serial / Lot Microtech Sure Clip Implanted:Qty: 2 on 06/03/2020 by Janis Hatch DO at OR [facility] Clip N/A: Colon 04/21/2022 [facility]-F-26-2 35-C-R / / [id number] documented as of this encounter Visit Diagnoses Diagnosis Abdominal pain, right lower quadrant- Primary documented in this encounter Advance Directives Documents on File Type Date Recorded Patient Director Community Organization Expl anation Advance Directives and Living Will 04/29/2021 12:00 AM ADVANCE DIRECTIVE / LIVING WILL LIVING WILL AND HEALTH CARE POA Power of Marble Setter 04/29/2021 12:00 AM TOM R OF [facility] CARE POA Advanced Directive service a kerri [...]
--- OUTSIDE RECORDS SUMMARY | 2023-05-10 20:12 | External Medical Summary ---
Author Name Unknown Address Unknown Organization [id number]:[facility] [place] [address] [place] [address] Laboratory Report Ordering Provider Test Date Status LEONEL BHAKTA 06/16/2021 21:00:00 Final Observation Date Value Abnormality Reference (Units ) Status BUN 06/16/2021 21:00:00 17 6-20 (mg/dL) Final Creatinine 06/16/2021 21:00:00 0.9 0.5-1.0 (mg/dL) Final Glomerular filtration rate/1.73 sq M.predicted [Volume Rate/Area] in Serum, Plasma or Blood by Creatinine-based formula (CKD-EPI) 06/16/2021 21:00:00 63.4 >=60.0 (mL/min) Final Performing Location [facility] [place] [address] [place] [address]
--- OUTSIDE RECORDS SUMMARY | 2023-05-10 20:12 | External Medical Summary ---
Author Name Unknown Address Unknown Organization K01:[facility] [place] - [address] [facility] [place] [address] Laboratory Report Ordering Provider Test Date Status LEONEL BHAKTA 06/16/2021 21:00:00 Final Observation Date Value Abnormality Reference (Units ) Status SYNC LEUKOCYTES IN BLOOD BY AUTOMATED COUNT 06/16/2021 21:00:00 2.87 Below low normal 4.00-10.80 (K/uL) Final Segs 06/16/2021 21:00:00 49.1 40.0-75.0 (%) Final Lymphs % 06/16/2021 21:00:00 29.3 18.0-42.0 (%) Final Monos 06/16/2021 21:00:00 12.9 Above high normal 1.0-11.0 (%) Final Eosinophils 06/16/2021 21:00:00 7.7 Above high normal 0.0-6.0 (%) Final Basos 06/16/2021 21:00:00 0.7 0.0-2.0 (%) Final Immature Granulocyte, Percent 06/16/2021 21:00:00 0.3 0.0-2.0 (%) Final Absolute Segs 06/16/2021 21:00:00 1.41 Below low normal 1.80-7.70 (K/uL) Final Lymphs, absolute 06/16/2021 21:00:00 0.84 Below low normal 1.00-4.80 (K/ul) Final Monos, Abs 06/16/2021 21:00:00 0.37 0.00-1.10 (K/uL) Final Eos, Abs 06/16/2021 21:00:00 0.22 0.00-0.70 (K/uL) Final Basos, Abs 06/16/2021 21:00:00 0.02 0.00-0.20 (K/uL) Final Immature Granulocytes, Number 06/16/2021 21:00:00 0.01 0.00-0.20 (K/uL) Final Performing Location [facility] [place] - [facility] [address] [place]. [facility] [address]
--- OUTSIDE RECORDS SUMMARY | 2023-05-10 20:12 | External Medical Summary | Summary of Care ---
Author Name Unknown Organization [place] [address] Care Team Providers Care Microbiology Professor Name Role Phone Vanita Dunn MD Primary Care Provid er Reason for Visit * Reason Comments Follow Up Encounter Details Date Type Department Care Team Description 06/14/2021 Office Visit [facility] [address] [place] [address] Vanita Dunn MD [address] [place] [address] Acute bilateral low back pain without sciatica*; Bilateral renal colic Allergies Active Allergy Reactions Severity Noted Date Comments Adhesive Tape Itching 04/29/2020 Penicillins Rash 02/12/2008 Perflutren Protein A Microsph 2019 Definity-lower back pain documented as of this encounter (statuses as of 06/14/2021) Medications Medication Sig Dispensed Refills Start Date [...] 120 Vial 11 10/02/2019 Active nystatin (NYSTOP) 737595 UNIT/GM powder Apply topically to affected area [...] 60 Each 3 07/27/2020 Active Dexcom G6 Hospital Food Service Worker Device Use as directed. To test [...] Strip 3 10/29/2020 Active OneTouch Delica Plus [id number] TESTING once daily 100 Each 3 10/29/2020 [...] day max 360 Cap 1 06/04/2021 Active Sulfamethoxazole-Tri methoprim 800-160 MG Oral Tablet (Bactrim DS) Take 1 Tab by mouth 2 times a day for 10 days. Until gone. 20 Tab 0 06/08/2021 06/18/2021 Active traZODone HCl 50 MG Oral Tablet [...] mouth daily. 30 Cap 0 06/14/2021 Active Hospital, Clinic, or Other Facility Administered Medication Ordered Dose Route Frequency Start Date End Date Status ketorolac (Toradol) 30 MG/ML inj 30 mgIndications:Acute bilateral low back pain without sciatica 30 mg IM ONCE 06/14/2021 06/14/2021 Ended documented as of this encounter (statuses as of 06/14/2021) Active Problems Problem Noted Date Food insecurity [...] as of this encounter (statuses as of 06/14/2021) Resolved Problems Problem Noted Date Resolved Date [...] pain 01/24/2012 01/17/2017 Genetic Sleep Disorder Research Other*[id number] 05/13/2011 04/07/2016 Obstructive sleep apnea 01/18/2011 12/27/19 [...] as of this encounter (statuses as of 06/14/2021) Immunizations Name Administration Dates Next Due COVID-19 [...] Reading Time Taken Comments Blood Pressure 122/68 06/14/2021 8:27 AM EDT Pulse 64 06/14/2021 8:27 AM EDT Temperature 35.9 C (96.7 F) 06/14/2021 8:27 AM ED T Respiratory Rate - - Oxygen Saturation 95% 06/14/2021 8:27 AM EDT Inhaled Oxygen Concentration - - [...] this encounter Patient Instructions * Patient Instructions* Vanita Dunn MD - 06/14/2021 9:18 AM EDT CONTINUE TYLENOL AND RESTART IBUPROFEN TOMORROW (Monday) - FINISH ANTIBIOTIC - TAKE FLOMAX PILL DAILY UNTIL YOUR BACK PAIN STOPS IF FEVER 100.4 OR MORE - NEED TO GO TO ER IF STILL PAIN ON Monday, GO TO ER documented in this encounter Progress Notes * Vanita Dunn MD - 06/14/2021 8:37 AM EDT ASSESSMENT / PLAN: Acute bilateral low back pain without sciatica (Primary) - ketorolac (Toradol) 30 MG/ML inj 30 mg - Tamsulosin HCl 0.4 MG Oral Capsule (Flomax); Take 1 Cap by mouth daily. Bilateral renal colic - Tamsulosin HCl 0.4 MG Oral Capsule (Flomax); Take 1 Cap by mouth daily. 66 yo F with complex medical history and due to disability, very difficult access when it comes to imaging/urine samples of any kind - discussed option to empirically treat today for what appears to be colicky bilateral flank pain - she is on day 6 of bactrim for possible hematuria previously - no fevers or worsening - but h/o nephrolithiasis given these symptoms seems pertinent - will treat pain, and help with possible passage of stone - if no better though once abx is completed (around Mondayof this week) or if new fevers or concern, wouldrecommend return to ED for imaging of lower back/CTa/p and urinalysis/labs. We also discussed her recent hyperglycemia - pt is considering and has made an appt with endocrinology from outside system ([facility]) due to not wanting to go to [place]. We discussed that T2DM and hypothyroidism can certainly be managed here in our office if she would prefer. She will consider. She is in touch with MTM, and sees her soon. Answered all questions. Follow Up: Return if symptoms worsen or fail to improve. If needed, prefers contact by: Ok to leave message on phone: Total time: I spent a total of 30-39 minutes (exact time 31 mins) on the date of service in preparation, delivery, and documentation of the care provided to Shaina Busots excluding any time spent in the performance of separately billed services. SUBJECTIVE: Shaina Bustos is a 66 year old female. Nursing Notes: Tamaar Fabian LPN 06/14/21 0830 Signed Chief Complaint Patient presents with Follow Up HPI: Review of recent medical history - significant for: Seen in ED recently 06/01/21 - for high BSG (as high as 540) and headaches. BSG was 279 in ED. Givenfluids, and toradol. And also 06/06/21 - for concern for wound care - right foot bruising and left foot ingrown toenail -seen by her entry level machine operator earlier in the week, expressed some dissatisfaction with the procedure - felt to have an exacerbation in her chronic neuropathy and her gabapentin was increased to 6 times per day. 06/08/21 - seen in office for acute UTI, given bactrim. 06/10 - seen by endo for following T2DM and hypothyroid - new, stricter sliding scale issued given hyperglycemia. Thyroid med lowered from 200 --> 175 based on labs. Her A1C showed improvement (butpt is anemic) and her kidney function stable. Today: day 4 of illness - endorses colicky lower back pain bilaterally - comes and goes - hurts with breathing sometimes, but other times not - denies dysuria or diarrhea, BMs are consistent. NO fevers. On day 7 of bactrim for presumed UTI. No hematuria or melena or hematochezia or change in breathing. Also states she will be switching to [facility] Endo bc she doesn't want to travel to [place] anymore. Has been having issues with high blood sugar lately. Last A1c within reasonable control, however pt is very anemic (for which she gets regular IV Iron thru hematology). So, unsure of utility or reliability of A1C. Current Outpatient Medications Medication Sig Dispense Refill Tamsulosin HCl 0.4 MG Oral Capsule (Flomax) Take 1 Cap by mouth daily. 30 Cap 0 Fluticasone Propionate 50 MCG/ACT Nasal Suspension (Flonase) USE 2 SPRAYS IN EACH NOSTRIL ONCE DAILY DIRECTED 16 g 5 Levothyroxine Sodium 175 MCG Oral Tablet (Levoxyl) Take 1 Tab by mouth daily. (at least 30 min prior to breakfast or other meds) 35 Tab 11 Pantoprazole Sodium 20 MG Oral Tablet Delayed Release (Protonix) TAKE 2 TABLETS BY MOUTH TWICE DAILY 360 Tab 3 Potassium Chloride ER 10 MEQ Oral Tablet Extended Release TAKE 1 TABLET BY MOUTH ONCE DAILY WITH FOOD 90 Tab 3 traZODone HCl 50 MG Oral Tablet (Desyrel) TAKE 1 TABLET ONCE DAILY AT BEDTIME 90 Tab 3 Sulfamethoxazole-Trimethoprim 800-160 MG Oral Tablet (Bactrim DS) Take 1 Tab by mouth 2 times a dayfor 10 days. Until gone. 20 Tab 0 Gabapentin 300 MG Oral Capsule (Neurontin) TAKE 1 CAPSULE BY MOUTH EVERY MORNING, 1 CAPSULE MIDDAY AND 2 CAPSULES IN THE EVENING. May take extra dose am and mid day if needed for pain - total of 6 a day max 360 Cap 1 Lantus SoloStar 100 UNIT/ML Subcutaneous Solution Pen-injector (Insulin Glargine) inject 32 units under skin at bedtime 45 mL 3 metFORMIN HCl ER 500 MG Oral Tablet Extended Release 24 Hour (Glucophage XR) Take one tablet by mouth daily with a meal 90 Tab 3 Docusate Sodium 100 MG Oral Capsule (Colace) TAKE 1 CAPSULE BY MOUTH ONCE DAILY 68 Cap 0 Spironolactone 25 MG Oral Tablet (Aldactone) Take 2 Tabs by mouth daily. 60 Tab 5 Ibuprofen 800 MG Oral Tablet (Motrin) Take 1 Tab by mouth daily as needed for Pain, Severe. with food for pain 30 Tab 3 Oxybutynin Chloride 5 MG Oral Tablet (Ditropan) TAKE 1 TABLET BY MOUTH TWICE DAILY 180 Tab 1 Nadolol 40 MG Oral Tablet (Corgard) Take 1 tablet daily. 90 Tab 1 Senna-Docusate Sodium 8.6-50 MG Oral Tablet Take 1 Tab by mouth daily. 90 Tab 0 Trulicity 4.5 MG/0.5ML Subcutaneous Solution Pen-injector (Dulaglutide) Inject one pen (4.5 mg) under the skin once weekly 6 mL 3 Furosemide 20 MG Oral Tablet [...] Tab by mouth daily. 30 Tab 5 Atorvastatin Calcium 80 MG Oral Tablet (Lipitor) Take 1 Tab by mouth at bedtime. 30 Tab 5 Isosorbide Mononitrate ER 30 MG Oral Tablet Extended Release 24 Hour (Imdur) Take 1 Tab by mouth daily. 30 Tab 5 Cyclobenzaprine HCl 10 MG Oral Tablet (Flexeril) TAKE 1 TABLET ONCE DAILY AT BEDTIME 30 Tab 0 MEDICAL INSTRUCTIONS Please de-access patient's port. Please flush with 10 mL of NS, followed by 500 units (5 mL) of heparin. 1 Each N/A BiPAP every night at bedtime. Nitroglycerin 0.4 MG Sublingual Tablet Sublingual (Nitrostat) Place 1 Tab under the tongue every 5 minutes as needed for Pain, Chest. up to 3 doses in 15 minutes 25 Tab 11 Cinnamon 500 MG Oral Capsule Take 500 mg by mouth daily. Escitalopram Oxalate 20 MG Oral Tablet (Lexapro) TAKE 1 TABLET BY MOUTH ONCE DAILY 90 Tab 3 BD Pen Needle Mini U/F 31G X 5 MM (Insulin Pen Needle) Use to inject insulin four times daily; E11.42 400 Each 3 Linzess 290 MCG Oral Capsule (linaCLOtide) TAKE 1 CAPSULE BY MOUTH ONCE DAILY BEFORE BREAKFAST 90 Cap 1 OneTouch Delica Plus [id number] TESTING once daily 100 Each 3 OneTouch Verio In Vitro Strip (Glucose Blood) TESTING once daily 100 Strip 3 Lidocaine-Prilocaine 2.5-2.5 % External Cream (Emla) Apply topically to affected area as needed forOther (for port). APPLY TO SKIN OVER MEDIPORT & COVER 1HR PRIOR TO ACCESSING. 30 g 3 Dexcom G6 Hospital Food Service Worker Device Use as directed. To test [...] times a day. Change every 90 days. DxE11.9 1 Each 3 Fluticasone-Salmeterol 250-50 MCG/DOSE Inhalation Aerosol Powder Breath Activated (Advair Diskus) Inhale 1 Puff by mouth 2 times a day. 60 Each 3 Ipratropium-Albuterol 0.5-2.5 (3) MG/3ML Inhalation Solution (DUONEB) Inhale 3 mL via nebulizer 4 times a day. (Patient taking differently: Inhale 3 mL via nebulizer 4 times a day as needed for Shortness of Breath.) 3 mL 10 silver sulfadiazine (SILVADENE) 1 % cream Apply topically to affected area daily. Apply to right great toe 50 g 0 Blood Glucose Monitoring Suppl (BLOOD GLUCOSE MONITOR SYSTEM) w/Device KIT Use to test once per day. 1 Kit 0 Albuterol Sulfate (ALBUTEROL HFA) 108 (90 BASE) MCG/ACT inhaler Inhale 2 Puffs by mouth every 4 hours as needed for Cough or Wheezing. With spacer 16 g 1 nystatin (NYSTOP) 984378 UNIT/GM powder Apply topically to affected area 3 times a day. 60 g 1 albuterol sulfate (PROVENTIL) (2.5 MG/3ML) 0.083% nebulizer solution Inhale 1 Vial via nebulizer every 6 hours as needed for Wheezing. 120 Vial 11 vitamin c (ASCORBIC ACID) 500 MG Tablet Take 500 mg by mouth daily. CENTRUM SILVER PO TABS Take 1 Tab by mouth daily. 1 Tab 0 OBJECTIVE: BP 122/68 | Pulse 64 | Temp 35.9 C (96.7 F) (Tympanic) [...] Normal affect. Fluent speech. Vanita Dunn MD [address] [address] Patient Instructions CONTINUE TYLENOL AND RESTART IBUPROFEN TOMORROW (Monday) - FINISH ANTIBIOTIC - TAKE FLOMAX PILL DAILY UNTIL YOUR BACK PAIN STOPS IF FEVER 100.4 OR MORE - NEED TO GO TO ER IF STILL PAIN ON Monday, GO TO ER documented in this encounter Nursing Notes * Tamara Fabian LPN - 06/14/2021 8:29 AM EDT Chief Complaint Patient presents with Follow Up documented in this encounter Plan of Treatment Upcoming Encounters Date Type Specialty Care Team Description 06/16/2021 Nutrition Services Gastroenterology Melissa Omalley RDN [address] [place] [address] [phone] 06/21/2021 Office Visit Pharmacy [address] [place] [address] [phone] 06/24/2021 Cardiac Studies Cardiac Studies Gw, Chart Changer [address] [place] [address] [phone] 07/02/2021 Immunization/Injecti o n Hematology Oncology Nurse, Med [address] [place] [address] [phone] 07/06/2021 Office Visit Hematology Oncology Tono Sanchez MD [address] [place] [address] [phone] 07/22/2021 Office Visit Pulmonary Reynaldo Marquez MD [address], [place] [id number] 07/26/2021 Office Visit Cardiology Quyen Canseco CRNP [address] [facility] [place] [address] [phone] 07/27/2021 Office Visit Gastroenterology Lyssa Stout CRNP [address] [facility] [place] [address] [phone] 08/11/2021 Office Visit Endocrinology Alberta Duque PA-C [address] [place] [address] 09/09/2021 Imaging Radiology Health Maintenance Due Date Last Done Comments [...] of this encounter Implants Implanted Type Area Scrum Product Owner Device Identifier Shelf Expiration Date Model / Serial / Lot Microtech Sure Clip Implanted:Qty: 2 on 06/03/2020 by Janis Hatch DO at OR [facility] Clip N/A: Colon 04/21/2022 [facility]-F-26-2 35-C-R / / [id number] documented as of this encounter Visit Diagnoses Diagnosis Acute bilateral low back pain without sciatica- Primary Bilateral renal colic Renal colic documented in this encounter Administered Medications Inactive Administered Medications - up to 3 most recent administrations Medication Order MAR Action Action Date Dose Rate Site ketorolac (Toradol) 30 MG/ML inj 30 mg 30 mg, Intramuscular, ONCE, 06/14/21 at 0945, For 1 dose, , Given 06/14/2021 9:26 AM EDT 30 mg Arm Right Upper documented in this encounter Advance Directives Documents on File Type Date Recorded Patient Cloth Cutter Expl anation Advance Directives and Living Will 04/29/2021 12:00 AM ADVANCE DIRECTIVE / LIVING WILL LIVING WILL AND HEALTH CARE POA Power of Hospital Carrier 04/29/2021 12:00 AM TOM R OF [facility] HEALTH CARE POA Advanced 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
--- OUTSIDE RECORDS SUMMARY | 2023-05-10 20:12 | External Medical Summary ---
Author Name Unknown Address Unknown Organization K01:[facility] [place] [address] [place] [address] Laboratory Report Ordering Provider Test Date Status LEONEL BHAKTA 06/16/2021 21:00:00 Final Observation Date Value Abnormality Reference (Units ) Status WBC, Total 06/16/2021 21:00:00 2.87 Below low normal 4.00-10.80 (K/uL) Final RBC 06/16/2021 21:00:00 2.95 Below low normal 3.85-5.15 (M/uL) Final Hemoglobin 06/16/2021 21:00:00 9.0 Below low normal 12.0-15.3 (g/dL) Final HCT 06/16/2021 21:00:00 29.4 Below low normal 36.0-45.2 (%) Final MCV 06/16/2021 21:00:00 99.7 Above high normal 81.5-97.5 (fL) Final MCH 06/16/2021 21:00:00 30.5 27.0-34.0 (pg) Final MCHC 06/16/2021 21:00:00 30.6 Below low normal 32.0-36.0 (g/dL) Final RDW 06/16/2021 21:00:00 18.7 Above high normal 11.5-15.5 (%) Final MPV 06/16/2021 21:00:00 12.8 Above high normal 6.6-11.1 (fL) Final Nucleated erythrocytes/100 leukocytes [Ratio] in Blood by Automated count 06/16/2021 21:00:00 0 <=0 (/100 WBCs) Final Platelets 06/16/2021 21:00:00 84 Below low normal 140-400 (K/uL) Final Performing Location [facility] [place] [address] [address]
--- OUTSIDE RECORDS SUMMARY | 2023-05-10 20:12 | External Medical Summary | Summary of Care ---
Author Name Unknown Organization [place] [address] Care Team Providers Care Vehicle Refinisher Name Role Phone Vanita Dunn MD Primary Care Provid er Reason for Visit * Reason Comments Weight Management diet counseling Encounter Details Date Type Department Care Team Description 06/16/2021 Nutrition Services Nutrition & Weight Management, [facility] [address] [facility] [place] [address] Melissa Omalley, RDShae [address] [facility] [address] Obesity, Class III, BMI 40-49.9 (morbid obesity) ([facility])*; Type 2 diabetes mellitus with hemoglobin A1c goal of less than 7.0% ([facility]); Essential hypertension with goal blood pressure less than 140/90; Lymphedema; Hypothyroidism; Dyslipidemia, goal LDL below 70; Obesity, morbid (more than 100 lbs over ideal weight or BMI > 40) ([facility]) Allergies Active Allergy Reactions Severity Noted Date Comments Adhesive Tape Itching 04/29/2020 Penicillins Rash 02/12/2008 Perflutren Protein A Microsph 2019 Definity-lower back pain documented as of this encounter (statuses as of 06/16/2021) Medications Medication Sig Dispensed Refills Start Date [...] 120 Vial 11 10/02/2019 Active nystatin (NYSTOP) 821765 UNIT/GM powder Apply topically to affected area [...] 60 Each 3 07/27/2020 Active Dexcom G6 Grip Assembler Device Use as directed. To test [...] Strip 3 10/29/2020 Active OneTouch Delica Plus [id number] TESTING once daily 100 Each 3 10/29/2020 [...] as of this encounter (statuses as of 06/16/2021) Active Problems Problem Noted Date Food insecurity [...] as of this encounter (statuses as of 06/16/2021) Resolved Problems Problem Noted Date Resolved Date [...] pain 01/24/2012 01/17/2017 Genetic Sleep Disorder Research Other*[id number] 05/13/2011 04/07/2016 Obstructive sleep apnea 01/18/2011 12/27/19 [...] as of this encounter (statuses as of 06/16/2021) Immunizations Name Administration Dates Next Due COVID-19 [...] Sign Reading Time Taken Comments Blood Pressure 126/80 06/16/2021 2:29 PM EDT Pulse 76 06/16/2021 2:29 PM EDT Temperature 37.1 C (98.8 F) 06/16/2021 2:29 PM ED T Respiratory Rate - - [...] this encounter Patient Instructions * Patient Instructions* Melissa Omalley RDN - 06/16/2021 2:51 PM EDT PATIENT GOALS: 1. Keep up the good job with getting more fruits and vegetables in the diet. 2. Great job increasing more whole grains in the diet such as oatmeal , whole grains. Increase water intake, cut down on sugary beverages 3. Patient to be more mindful of your fluid intake- minimal goal of 6 ( 8 ounces glass of fluid a day) any type will count such as water, decaf tea, milk or juice documented in this encounter Progress Notes * Melissa Omalley RDN - 06/16/2021 2:29 PM EDT WEIGHT MANAGEMENT FOLLOW UP [facility] Patient was identified at visit by name and date. DATE: Office Visit NUTRITION ASSESSMENT Diagnosis Code for referral for nutrition counseling: Obesity, morbid (more than 100 lbs over ideal weight or BMI > 40) (HCC) [E66.01] - Primary Type 2 diabetes mellitus with hemoglobin A1c goal of less than 7.0% (HCC) [E11.9] HTN, goal below 140/90 [I10] Cirrhosis of liver (HCC) [K74.60] Lymphedema [I89.0] Dyslipidemia, goal LDL below 70 [E78.5] Acquired hypothyroidism [E03.9] SUBJECTIVE: Since last visit patient has not been compliant witht the diet. Patient currently has the Dexcon with range of 130 with as high as 200-300 mg/dl Patient stated she feels she might have a kidney stone and is in pain. Patient stated she is going to call her PCP once she leave the office. Patient stated since last visit her appetite has been down since last visit and sometimes she skipsmeals. Most recent weight: 264 lbs Ht: 4'11" BMI: 53.32 Unable to weigh patient. Most recent weight: 260 lbs WEIGHT CHANGES: Weight decreased 6 lbs since 07/16/2020. Wt Readings from Last 20 Encounters: 06/10/21 117.9 kg (260 lb) 04/08/21 117.9 kg (260 lb) 04/03/21 126.1 kg (278 lb) 03/24/21 120.9 kg (266 lb 9.6 oz) 03/11/21 124.8 kg (275 lb 2.2 oz) 03/03/21 117.5 kg (259 lb) 03/03/21 117.5 kg (259 lb) 02/20/21 123.8 kg (273 lb) 02/04/21 118 kg (260 lb 1.6 oz) 02/01/21 116.8 kg (257 lb 9.6 oz) 12/03/20 117.9 kg (260 lb) 09/24/20 119.7 kg (264 lb) 08/07/20 119.7 kg (264 lb) 08/05/20 119.7 kg (264 lb) 07/23/20 119.7 kg (264 lb) 07/21/20 121.1 kg (267 lb) 07/16/20 122.6 kg (270 lb 4.5 oz) 07/13/20 121.5 kg (267 lb 14.4 oz) 07/07/20 121.4 kg (267 lb 9.6 oz) 06/09/20 113.4 kg (250 lb) Describes typical diet history/24 hr recall Breakfast: [place] or Eggs Lunch: Sub or A [facility] Dinner: Meat, potato and a vegetable Patient stated she si going to start Dietary recall reveals: Large portions Inadequate fruit and vegetable intake Drinks:Inadequate fluid intake Under 48 ounces a times. MNT: Calorie Controlled Diet LABS: Component Latest Ref Rng & Units 06/10/2021 BUN 6 - 20 mg/dL 15 Creatinine 0.5 - 1.0 mg/dL 0.8 Estimated Glomerular Filtration Rate >=60.0 mL/min 79.5 Sodium 135 - 146 mmol/L 141 Potassium 3.5 - 5.1 mmol/L 4.6 Chloride 98 - 107 mmol/L 111 (H) CO2 22 - 32 mmol/L 21 (L) Anion Gap 7 - 15 mmol/L 9 Glucose 70 - 120 mg/dL 166 (H) Calcium 8.4 - 10.2 mg/dL 9.1 Component Latest Ref Rng & Units 06/10/2021 BUN 6 - 20 mg/dL 15 Creatinine 0.5 - 1.0 mg/dL 0.8 Estimated Glomerular Filtration Rate >=60.0 mL/min 79.5 Sodium 135 - 146 mmol/L 141 Potassium 3.5 - 5.1 mmol/L 4.6 Chloride 98 - 107 mmol/L 111 (H) CO2 22 - 32 mmol/L 21 (L) Anion Gap 7 - 15 mmol/L 9 Glucose 70 - 120 mg/dL 166 (H) Calcium 8.4 - 10.2 mg/dL 9.1 ecks blood glucose regularly with goal of 282 mg/dl. NUTRITION DIAGNOSIS Food and nutrition related knowledge deficit in relation to calorie intake exceeding calorie expenditure as evidenced by diagnosis of Obesity. NUTRITION INTERVENTION Motivational Interviewing used with patient at time of this visit. Adjusted nutrition /lifestyle goals with patient to aid with slow consistent weight loss. Patient stated understanding and agreed to plan. PATIENT GOALS: 1. Minimize/Avoid simple sugar foods - I.e. White breads, pasta, bagels, crackers, etc. Goal to increase more fruits and vegetables Daily. ( patient to rinse canned vegetables in the water to reduce the sodium) - ( Patient has problems chewing fresh or fozen vegetable) Patient to choose canned fruit in water or juice ( no syrup) - ( Patient has problems chewing freshor fozen fruit) Patient to try using a food diary to aid with portion control. 2. Increase water intake, cut down on sugary beverages 3. Increase fruit as snacks instead of processed simple carbs NUTRITION MONITORING/EVALUATION Monitor weight loss progress for adjustments in patient's nutrition/lifestyle goals accordingly. PLAN: Follow up in 3 months with dietitian. ( clinic visit) 20 Minute Return Face to Face Visit Melissa Omalley RDN, LDN documented in this encounter Nursing Notes * Fatuma Hernandez LPN - 06/16/2021 2:35 PM EDT Pt verified identity by last name and date. Chief Complaint Patient presents with Weight Management diet counseling documented in this encounter Plan of Treatment Upcoming Encounters Date Type Specialty Care Team Description 06/22/2021 Office Visit Sleep Disorders Love Francisco DO [address] [place] [address] [phone] 06/24/2021 Cardiac Studies Cardiac Studies Gw, Manager Sharepoint 1 [address] [place] [address] [phone] 06/28/2021 Office Visit Pharmacy [facility] [address] [phone] 07/02/2021 Immunization/Injection Hematology Oncolog y Nurse, Med 4 [address] [place] [address] [phone] 07/06/2021 Office Visit Hematology Oncology Tono Sanchez MD [address] [place] [address] [phone] 07/22/2021 Office Visit Pulmonary Reynaldo Mraquez MD [address] [place] [address] [phone] 07/26/2021 Office Visit Cardiology Quyen Canseco CRNP [address] [place] [address] [phone] 07/27/2021 Office Visit Gastroenterology Lyssa Stout CRNP [address] [place] [address] [phone] 08/11/2021 Office Visit Endocrinology Alberta Duque PA-C [address] [place] [address] 09/09/2021 Imaging Radiology 09/16/2021 Telemedicine Gastroenterology Katherine Moore RDN [address] [place] [address] Health Maintenance Due Date Last [...] of this encounter Implants Implanted Type Area Principal Law Clerk Device Identifier Shelf Expiration Date Model / Serial / Lot Microtech Sure Clip Implanted:Qty: 2 on 06/03/2020 by Janis Hatch DO at OR [facility] Clip N/A: Colon 04/21/2022 [facility]-F-26-2 35-C-R / / [id number] documented as of this encounter Visit Diagnoses Diagnosis Obesity, Class III, BMI 40-49.9 (morbid obesity) ([facility])- Primary Morbid obesity Type 2 diabetes mellitus with hemoglobin A1c goal of less than 7.0% ([facility]) Essential hypertension with goal blood pressure less than 140/90 Lymphedema Other lymphedema Hypothyroidism Unspecified hypothyroidism Dyslipidemia, goal LDL below 70 Other and unspecified hyperlipidemia Obesity, morbid (more than 100 lbs over ideal weight or BMI > 40) ([facility]) Morbid obesity documented in this encounter Advance Directives Documents on File Type Date Recorded Patient Textile Technical Officer Expl anation Advance Directives and Living Will 04/29/2021 12:00 AM ADVANCE DIRECTIVE / LIVING WILL LIVING WILL AND HEALTH CARE POA Power of Card Doffer 04/29/2021 12:00 AM TOM R OF BIOFUELS PLANT OPERATIONS ENGINEER HEALTH CARE POA Advanced Directive service [...]
--- OUTSIDE RECORDS SUMMARY | 2023-05-10 20:13 | External Medical Summary | Summary of Care ---
Author Name Unknown Organization [place] [address] Care Team Providers Care Brass Pourer Name Role Phone Vanita Dunn MD Primary Care Provid er Reason for Visit * Reason Onset Date Comments Test Results 06/11/2021 Encounter Details Date Type Department Care Team Description 06/11/2021 Telephone Endocrinology, [place] [address] [place] [address] Alberta Duque PA-C [address] [place] [address] Test Results Allergies Active Allergy Reactions Severity [...] 120 Vial 11 0 Active nystatin (NYSTOP) 035009 UNIT/GM powder Apply topically to affected area [...] 60 Each 3 0 Active Dexcom G6 Dental Technician Apprentice Device Use as directed. To [...] Strip 3 1 Active OneTouch Delica Plus [id number] TESTING once daily 100 Each 3 1 Active Linzess 290 MCG Oral Capsule (linaCLOtide) TAKE 1 CAPSULE BY MOUTH ONCE DAILY BEFORE BREAKFAST 90 Cap 1 1 Active BD Pen Needle Mini [...] once weekly 6 mL 3 1 Active Senna-Docusate Sodium 8.6-50 MG Oral Tablet Take 1 Tab by mouth daily. 90 Tab 0 1 Active Nadolol 40 MG Oral Tablet [...] day max 360 Cap 1 1 Active Sulfamethoxazole-Tr imethoprim 800-160 MG Oral Tablet (Bactrim DS) Take 1 Tab by mouth 2 times a day for 10 days. Until gone. 20 Tab 0 1 06/18/20 21 Active traZODone HCl 50 MG Oral Tablet [...] other meds) 35 Tab 11 1 Active Levothyroxine Sodium 200 MCG Oral Tablet (Levoxyl) TAKE 1 TABLET BY MOUTH ONCE DAILY 90 Tab 3 1 06/11/20 21 Discontinued documented as of this encounter [...] failure 04/08/2019 04/18/2019 Oxygen dependent 04/08/2019 04/18/2019 [facility] resident 04/08/2019 05/02/2019 Fall 04/04/2019 05/05/2020 Sprain [...] pain 01/24/2012 01/17/2017 Genetic Sleep Disorder Research Other*[id number] 05/13/2011 04/07/2016 Obstructive sleep apnea 01/18/2011 12/27/19 [...] Telephone Encounter - Scarlett Adrian RN - 06/14/2021 10:27 AM EDT Called pt and made aware of the decrease in dose of Levothyroxine from 200mcg to 175 mcg. Pt instructed to please repeat thyroid labs in 6 weeks. Pt agreeable and verbalized understanding. * Telephone Encounter - Alberta Duque PA-C - 06/11/2021 4:22 PM EDT Tried calling no VM box set up . TSH low, Free T4 is elevated. Recommend decreasing levothyroxine dose from 200 mcg daily to 175 mcg. Will send in new prescription. Updated thyroid labs in 6 weeks. A1C decreased to 7.4% Kidney function is good. documented in this encounter Plan of Treatment Upcoming Encounters Date Type Specialty Care Team Description 06/16/2021 Nutrition Services Gastroenterology Melissa Omalley RDN [address] [place] [address] [phone] 06/21/2021 Office Visit Pharmacy [address] [place] [address] [phone] 06/24/2021 Cardiac Studies Cardiac Studies Gw, Certified Social Workers In Health Care 1 [address] [place] [address] [phone] 07/02/2021 Immunization/Injecti o n Hematology Oncology Nurse, Med 4 [address] [place] [address] [phone] 07/06/2021 Office Visit Hematology Oncology Tono Sanchez MD 200 [place] [address] [phone] 07/22/2021 Office Visit Pulmonary Reynaldo Marquez MD [address], [place] [phone] 07/26/2021 Office Visit Cardiology Quyen Canseco CRNP [address] [place] [address] 07/27/2021 Office Visit Gastroenterology Lyssa Stout CRNP [address] [place] [address] [phone] 08/11/2021 Office Visit Endocrinology Alberta Duque PA-C [address] [place] [address] 09/09/2021 Imaging Radiology Scheduled Orders Name Type Priority Associated Diagnoses Orde r Schedule TSH WITH FREE T4 IF INDICATED Lab Routine Acquired hypothyroidism Expected: 07/12/2021, Expires: 06/11/2022 Health Maintenance Due Date Last Done Comments [...] of this encounter Implants Implanted Type Area Framing Mechanic Device Identifier Shelf Expiration Date Model / Serial / Lot Microtech Sure Clip Implanted:Qty: 2 on 06/03/2020 by Janis Hatch DO at OR [facility] Clip N/A: Colon 04/21/2022 [facility]-F-26-2 35-C-R / / [id number] documented as of this encounter Visit Diagnoses Diagnosis Type 2 diabetes mellitus with hemoglobin A1c goal of less than 8.0% (HCC)- Primary Acquired hypothyroidism Unspecified hypothyroidism documented in this encounter Advance Directives Documents on File Type Date Recorded Patient 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
--- OUTSIDE RECORDS SUMMARY | 2023-05-10 20:13 | External Medical Summary | Summary of Care ---
Author Name Unknown Organization [place] [address] Care Team Providers Care Machinist Brake Name Role Phone Vanita Dunn MD Primary Care Provid er Reason for Visit * Reason Comments eRx-Medication Refill Encounter Details Date Type Department Care Team Description 06/11/2021 Refill Endocrinology, [place] [address] [place] [address] Alberta Duque PA-C [address] [place] [address] Allergies Active Allergy Reactions Severity [...] 120 Vial 11 10/02/2019 Active nystatin (NYSTOP) 703391 UNIT/GM powder Apply topically to affected area [...] 60 Each 3 07/27/2020 Active Dexcom G6 Volunteer Firefighter Device Use as directed. To test blood [...] Strip 3 10/29/2020 Active OneTouch Delica Plus [id number] TESTING once daily 100 Each 3 10/29/2020 [...] other meds) 35 Tab 11 06/11/2021 Active documented as of this encounter (statuses [...] failure 04/08/2019 04/18/2019 Oxygen dependent 04/08/2019 04/18/2019 care home resident 04/08/2019 05/02/2019 Fall 04/04/2019 05/05/2020 Sprain [...] pain 01/24/2012 01/17/2017 Genetic Sleep Disorder Research Other*[id number] 05/13/2011 04/07/2016 Obstructive sleep apnea 01/18/2011 12/27/19 [...] encounter Miscellaneous Notes * Telephone Encounter - Sophia Montana RPh - 06/14/2021 7:58 AM EDT Refused Prescriptions: Disp Refills Levothyroxine Sodium 200 MCG Oral Tablet (*90 Tab 0 Sig: TAKE 1TABLET BY MOUTH ONCE DAILYRefused By: SOPHIA [place] for Refusal: Other (comment below)Reason for Refusal Comment: decreased to 175mcg, sent 06/11 documented in this encounter Plan of Treatment Upcoming Encounters Date Type Specialty Care Team Description 06/14/2021 Office Visit Family Medicine Vanita Dunn MD [address] [place] [address] [phone] Arrived 06/16/2021 Nutrition Services Gastroenterology Melissa Omalley, SAMANTHA [address] [place] [address] [phone] 06/21/2021 Office Visit Pharmacy [facility] [address] [place] [address] [phone] 06/24/2021 Cardiac Studies Cardiac Studies Gw, Lithographic Printing Machinist 1 [address] [place] [address] [phone] 07/02/2021 Immunization/Injecti o n Hematology Oncology Nurse, Med 4 [address] [place] [address] [phone] 07/06/2021 Office Visit Hematology Oncology Tono Sanchez MD [address] [place] [address] [phone] 07/22/2021 Office Visit Pulmonary Reynaldo Marquez MD [address] [facility] [place] [phone] 07/26/2021 Office Visit Cardiology Quyen Canseco CRNP [address] [place] [address] [phone] 07/27/2021 Office Visit Gastroenterology Lyssa Stout CRNP [address] [place] [address] [phone] 08/11/2021 Office Visit Endocrinology Alberta Duque PA-C [address] [place] [address] 09/09/2021 Imaging Radiology Health Maintenance [...] this encounter Implants Implanted Type Area Assistant Speech Language Pathologist Device Identifier Shelf Expiration Date Model / Serial / Lot Microtech Sure Clip Implanted:Qty: 2 on 06/03/2020 by Janis Hatch DO at OR [facility] Clip N/A: Colon 04/21/2022 [facility]-F-26-2 35-C-R / / [id number] documented as of this encounter Advance Directives Documents on File Type Date Recorded Patient Manager Core Expl anation Advance Directives and Living Will 04/29/2021 12:00 AM ADVANCE DIRECTIVE / LIVING WILL LIVING WILL AND HEALTH CARE POA Power of Contract Analyst 04/29/2021 12:00 AM TOM R OF [place] ENAMEL REPAIRER HEALTH CARE POA Advanced 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
--- OUTSIDE RECORDS SUMMARY | 2023-05-10 20:14 | External Medical Summary | Summary of Care ---
Author Name Unknown Organization [place] [address] Care Team Providers Care Cost Specialist Name Role Phone Kojo Dunn MD Primary Care Provid er Reason for Visit * Reason Comments eRx-Medication Refill Encounter Details Date Type Department Care Team Description 06/09/2021 Refill [facility] [address] [place] [address] Rajwinder Carter, [address], [place] [id number] Hypokalemia; Sinus congestion Allergies Active Allergy Reactions Severity Noted Date Comments Adhesive Tape Itching 04/29/2020 Penicillins Rash 02/12/2008 Perflutren Protein A Microsph 2019 Definity-lower back pain documented as of this encounter (statuses as of 06/11/2021) Medications Medication Sig Dispensed Refills Start Date [...] 120 Vial 11 10/02/2019 Active nystatin (NYSTOP) 255013 UNIT/GM powder Apply topically to affected area [...] great toe 50 g 0 05/26/2020 Active Ipratropium-Albut jayme 0.5-2.5 (3) MG/3ML Inhalation [...] 60 Each 3 07/27/2020 Active Dexcom G6 Borough Coordinator Device Use as directed. To test [...] Dx E11.9 1 Each 3 09/14/2020 Active Lidocaine-Priloca ine 2.5-2.5 % External Cream (Emla)Indications :Iron deficiency anemia due to chronic blood loss,Pancytopenia (HCC) Apply topically to affected area as needed for Other (for port). APPLY TO SKIN OVER MEDIPORT & COVER 1HR PRIOR TO ACCESSING. 30 g 3 10/09/2020 Active OneTouch Verio In Vitro Strip (Glucose Blood) TESTING once daily 100 Strip 3 10/29/2020 Active OneTouch Delica Plus [id number] TESTING once daily 100 Each 3 10/29/2020 [...] 04/29/2021 Active Nadolol 40 MG Oral Tablet (Corgard)Indicati ons:HTN, goal below 140/90 Take 1 tablet daily. 90 Tab 1 05/11/2021 Active Oxybutynin Chloride 5 MG Oral Tablet (Ditropan) TAKE 1 TABLET BY MOUTH TWICE DAILY 180 Tab 1 05/13/2021 Active Ibuprofen 800 MG Oral Tablet (Motrin)Indicatio [...] 06/02/2021 Active Gabapentin 300 MG Oral Capsule (Neurontin)Indica tions:DM type 2 with diabetic peripheral neuropathy (HCC),Diabetic foot (HCC) TAKE 1 CAPSULE BY MOUTH EVERY MORNING, 1 CAPSULE MIDDAY AND 2 CAPSULES IN THE EVENING. May take extra dose am and mid day if needed for pain - total of 6 a day max 360 Cap 1 06/04/2021 Active Sulfamethoxazole- Trimethoprim 800-160 MG Oral Tablet (Bactrim DS) Take 1 Tab by mouth 2 times a day for 10 days. Until gone. 20 Tab 0 06/08/2021 Active traZODone HCl 50 MG Oral Tablet (Desyrel)Indicati ons:Sleep disturbances TAKE 1 TABLET ONCE DAILY AT BEDTIME 90 Tab 3 06/11/2021 Active Potassium Chloride ER 10 MEQ Oral Tablet Extended ReleaseIndication s:Hypokalemia TAKE 1 TABLET BY MOUTH ONCE DAILY WITH FOOD 90 Tab 3 06/11/2021 Active Pantoprazole Sodium 20 MG Oral Tablet Delayed Release (Protonix)Indicat ions:NAFLD (nonalcoholic fatty liver disease),Other cirrhosis of liver (HCC) TAKE 2 TABLETS BY MOUTH TWICE DAILY 360 Tab 3 06/11/2021 Active Fluticasone Propionate 50 MCG/ACT Nasal Suspension (Flonase)Indicati ons:Sinus congestion USE 2 SPRAYS IN EACH NOSTRIL ONCE DAILY DIRECTED 16 g 5 06/11/2021 Active Levothyroxine Sodium 200 MCG Oral Tablet (Levoxyl) TAKE 1 TABLET BY MOUTH ONCE DAILY 90 Tab 3 11/02/2020 1 Discontinued Fluticasone Propionate 50 MCG/ACT Nasal Suspension (Flonase)Indicati ons:Sinus congestion USE 2 SPRAYS IN EACH NOSTRIL ONCE DAILY as directed 16 g 5 12/23/2020 1 Discontinued documented as of this encounter (statuses as of 06/11/2021) Active Problems Problem Noted Date Food insecurity [...] as of this encounter (statuses as of 06/11/2021) Resolved Problems Problem Noted Date Resolved Date [...] pain 01/24/2012 01/17/2017 Genetic Sleep Disorder Research Other*[id number] 05/13/2011 04/07/2016 Obstructive sleep apnea 01/18/2011 12/27/19 [...] as of this encounter (statuses as of 06/11/2021) Immunizations Name Administration Dates Next Due COVID-19 [...] Telephone Encounter - Kojo Dunn MD - 06/11/2021 6:33 PM EDT Signed Prescriptions: Disp Refills Potassium Chloride ER 10 MEQ Oral Tablet E*90 Tab 3 Sig: TAKE 1 TABLET BY MOUTH ONCE DAILY WITH FOOD Authorizing Provider: KOJO DUNN Fluticasone Propionate 50 MCG/ACT Nasal Collins*16 g 5 Sig: USE 2 SPRAYS IN EACH NOSTRIL ONCE DAILY DIRECTED Authorizing Provider: KOJO DUNN Ordering User: DANILO TALAVERA * Telephone Encounter - Danilo Talavera [facility] - 06/11/2021 10:28 AM EDT Pending Prescriptions: Disp Refills Potassium Chloride ER 10 MEQ Oral Tablet E*90 Tab 3 Sig: TAKE 1 TABLET BY MOUTH ONCE DAILY WITH FOOD Signed Prescriptions: Disp Refills Fluticasone Propionate 50 MCG/ACT Nasal Collins*16 g 5 Sig: USE 2 SPRAYS IN EACH NOSTRIL ONCE DAILY DIRECTED Authorizing Provider: KOJO DUNN Ordering User: DANILO TALAVERA * Telephone Encounter - Danilo Talavera RP - 06/11/2021 10:28 AM EDT Pharmacists cannot authorize refills for meds listed as "historical" in chart. Please approve if appropriate. Pending Prescriptions: Disp Refills Potassium Chloride ER 10 MEQ Oral Tablet E*90 Tab 3 Sig: TAKE 1 TABLET BY MOUTH ONCE DAILY WITH FOOD Signed Prescriptions: Disp Refills Fluticasone Propionate 50 MCG/ACT Nasal Collins*16 g 5 Sig: USE 2 SPRAYS IN EACH NOSTRIL ONCE DAILY DIRECTED Authorizing Provider: KOJO DUNN Ordering User: DANILO TALAVERA Last Office/Telemedicine Visit: 06/08/2021 06/14/2021 If no future appointments scheduled, and last appointment is greater than a year ago, please schedule patient for a follow-up appointment Last date the medication was ordered: historical Pharmacy: [facility] # [id number] Is this request for a controlled substance?No Urine Drug Screen:No results found. However, due to the size of the patient record, not all encounters were searched. Please check Results Review for a complete set of results. Patient Phone Numbers Labs: Lab Results Component Value Date/Time CREAT 0.8 06/10/2021 02:45 PM CREAT 0.6 09/24/2020 05:16 PM POTASSIUM 4.6 06/10/2021 02:45 PM POTASSIUM 4.0 09/24/2020 05:16 PM TSH 0.02 (L) 06/10/2021 02:45 PM TSH 0.69 07/14/2020 04:24 PM LDLCALC 43 04/05/2019 06:40 AM LDLDIRECT 46 02/21/2020 11:43 AM ALT 24 06/06/2021 05:46 PM ALT 23 08/21/2020 04:35 PM HGBA1C 7.4 (H) 06/10/2021 02:45 PM HGBA1C 9.9 (H) 07/06/2020 05:24 AM documented in this encounter Plan of Treatment Upcoming Encounters Date Type Specialty Care Team Description 06/14/2021 Office Visit Family Medicine Kojo Dunn MD [address] [place] [address] [phone] 06/16/2021 Nutrition Services Gastroenterology Melissa Omalley RDN [address] [place] [address] [phone] 06/21/2021 Office Visit Pharmacy [facility] [address] [place] [address] [phone] 06/24/2021 Cardiac Studies Cardiac Studies Gw, Hospice Care Sales Consultant 1 [address] [place] [address] [phone] 07/02/2021 Immunization/Injecti o n Hematology Oncology Nurse, Med [address] [place] [address] [phone] 07/06/2021 Office Visit Hematology Oncology Tono Sanchez MD [address] [place] [address] [phone] 07/22/2021 Office Visit Pulmonary Reynaldo Marquez MD [address] [place] [id number] 07/26/2021 Office Visit Cardiology Quyen Canseco CRNP [address] [place] [address] [phone] 07/27/2021 Office Visit Gastroenterology Lyssa Stout, STATIC BALANCER [address] [facility] [place] [address] [phone] 08/11/2021 Office Visit Endocrinology Alberta Duque PA-C [address] [facility] [place] [address] [phone] 09/09/2021 Imaging Radiology Health Maintenance Due Date [...] of this encounter Implants Implanted Type Area Liturgical Music Director Device Identifier Shelf Expiration Date Model / Serial / Lot Microtech Sure Clip Implanted:Qty: 2 on 06/03/2020 by Janis Hatch DO at OR [facility] Clip N/A: Colon 04/21/2022 [facility]-F-26-2 35-C-R / / [id number] documented as of this encounter Visit Diagnoses Diagnosis Hypokalemia Hypopotassemia Sinus congestion Other diseases of nasal cavity and sinuses documented in this encounter Advance Directives Documents on File Type Date Recorded Patient Receivable Manager Expl anation Advance Directives and Living Will 04/29/2021 12:00 AM ADVANCE DIRECTIVE / LIVING WILL LIVING WILL AND HEALTH CARE POA Power of Core Analyst 04/29/2021 12:00 AM TOM R OF DIRECTOR PACKAGING HEALTH CARE POA Advanced 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 Agents on File Name Relationship [facility] Communication Syed Bustos Spouse Emergency Contact
--- OUTSIDE RECORDS SUMMARY | 2023-05-10 20:14 | External Medical Summary | Summary of Care ---
Author Name Unknown Organization [place] [address] Care Team Providers Care Laboratory Veterinarian Name Role Phone Vanita Dunn MD Primary Care Provid er Encounter Details Date Type Department Care Team Description 06/11/2021 Telephone Endocrinology, [place] [address] [place], [place] [id number] Alberta Duque PA-C [address] [place] [address] Allergies Active Allergy Reactions Severity [...] 120 Vial 11 0 Active nystatin (NYSTOP) 254371 UNIT/GM powder Apply topically to affected area [...] 60 Each 3 0 Active Dexcom G6 Retail Management Keyholder Device Use as directed. To test blood [...] Strip 3 1 Active OneTouch Delica Plus [id number] TESTING once daily 100 Each 3 1 Active Linzess 290 MCG Oral Capsule (linaCLOtide) TAKE 1 CAPSULE BY MOUTH ONCE DAILY BEFORE BREAKFAST 90 Cap 1 1 Active BD Pen Needle Mini U/F 31G X 5 MM (Insulin Pen Needle)Indications: Type 2 diabetes mellitus with hemoglobin A1c goal of less than 7.0% ([facility]) Use to inject insulin four times [...] than 7.0% ([facility]) Inject one pen (4.5 mg) under [...] 7.0% ([facility]) inject 32 units under skin [...] pain 01/24/2012 01/17/2017 Genetic Sleep Disorder Research Other*[id number] 05/13/2011 04/07/2016 Obstructive sleep apnea 01/18/2011 12/27/19 [...] Dunn MD [address] [place] [facility] [place] [address] [phone] 06/16/2021 Nutrition Services Gastroenterology Melissa Omalley, RDN [address] [facility] [place] [address] [phone] 06/21/2021 Office Visit Pharmacy [facility] [address] [place] [facility] [place] [address] [phone] 06/24/2021 Cardiac Studies Cardiac Studies Gw, Supervisor Car Installations [address] [place] [address] [phone] 07/02/2021 Immunization/Injecti o n Hematology Oncology Nurse, Med [facility] [address] [facility] [address] [phone] 07/06/2021 Office Visit Hematology Oncology Tono Sanchez MD [address] [place] [address] [phone] 07/22/2021 Office Visit Pulmonary Reynaldo Marquez MD [address] [place] [facility] [address] [phone] 07/26/2021 Office Visit Cardiology Quyen Canseco CRNP [address] [place] [address] [phone] 07/27/2021 Office Visit [facility]astroenterology [facility] [address] [facility] [address] [phone] 08/11/2021 Office Visit Endocrinology Alberta Duque PA-Niya [address] [place] [address] 09/09/2021 Imaging Radiology Scheduled Orders [...] of this encounter Implants Implanted Type Area Kohinoor Operator Device Identifier Shelf Expiration Date Model / Serial / Lot Microtech Sure Clip Implanted:Qty: 2 on 06/03/2020 by Janis Hatch DO at OR [facility] Clip N/A: Colon 04/21/2022 [facility]-F-26-2 35-C-R / / [id number] documented as of this encounter Visit Diagnoses Diagnosis Type 2 diabetes mellitus with hemoglobin A1c goal of less than 8.0% (HCC)- Primary Acquired hypothyroidism Unspecified hypothyroidism documented in this encounter Advance Directives Documents on File Type Date Recorded Patient Seating And Mobility Technologist Expl anation Advance Directives and Living Will 04/29/2021 12:00 AM ADVANCE DIRECTIVE / LIVING WILL LIVING WILL AND HEALTH CARE POA Power of Plane Tableman 04/29/2021 12:00 AM TOM R OF FORM WORKER HEALTH CARE POA Advanced 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
--- OUTSIDE RECORDS SUMMARY | 2023-05-10 20:15 | External Medical Summary | Summary of Care ---
Author Name Unknown Organization [place] [address] Care Team Providers Care Data Coder Operator Name Role Phone Vanita Dunn MD Primary Care Provid er Reason for Visit * Reason Comments Outpatient Testing Encounter Details Date Type Department Care Team Description 06/10/2021 Laboratory Outpatient Laboratory, [place] [address] [place] [id number] [place], Lab B1a [address] [place], [place] [id number] Type 2 diabetes mellitus with hemoglobin A1c goal of less than 8.0% ([facility]) Allergies Active Allergy Reactions Severity Noted Date Comments Adhesive Tape Itching 04/29/2020 Penicillins Rash 02/12/2008 Perflutren Protein A Microsph 2019 Definity-lower back pain documented as of this encounter (statuses as of 06/10/2021) Medications Medication Sig Dispensed Refills Start Date [...] 120 Vial 11 10/02/2019 Active nystatin (NYSTOP) 271972 UNIT/GM powder Apply topically to affected area [...] 60 Each 3 07/27/2020 Active Dexcom G6 Video Games Mechanic Device Use as directed. To test [...] Strip 3 10/29/2020 Active OneTouch Delica Plus [id number] TESTING once daily 100 Each 10/29/2020 Active Levothyroxine Sodium 200 MCG Oral Tablet (Levoxyl) TAKE 1 TABLET BY MOUTH ONCE DAILY 90 Tab 3 11/02/2020 Active Linzess 290 MCG Oral Capsule (linaCLOtide) TAKE 1 CAPSULE BY MOUTH ONCE DAILY BEFORE BREAKFAST 90 Cap 1 11/29/2020 Active traZODone HCl 50 MG Oral Tablet (Desyrel)Indication s:Sleep disturbances TAKE 1 TABLET BY MOUTH AT BEDTIME 90 Tab 2 11/30/2020 Active BD Pen Needle Mini U/F 31G X 5 MM (Insulin Pen Needle)Indications: Type 2 diabetes mellitus with hemoglobin A1c goal of less than 7.0% ([facility]) Use to inject insulin four times daily; E11.42 400 Each 3 12/05/2020 Active Fluticasone Propionate 50 MCG/ACT Nasal Suspension (Flonase)Indication s:Sinus congestion USE 2 SPRAYS IN EACH NOSTRIL ONCE DAILY as directed 16 g 5 12/23/2020 Active Additional Information Patient taking differently: 2 [place] Nasal DAILY PRN, Congestion, Informant: Pharmacy, Reported on 02/04/2021 Escitalopram Oxalate 20 MG Oral Tablet (Lexapro)Indication s:Recurrent major depressive disorder, in partial remission (HCC) TAKE 1 TABLET BY MOUTH ONCE DAILY 90 Tab 3 12/28/2020 Active Pantoprazole Sodium 20 MG Oral Tablet Delayed Release (Protonix)Indicatio ns:NAFLD (nonalcoholic fatty liver disease),Other cirrhosis of liver (HCC) TAKE 2 TABLETS BY MOUTH TWICE DAILY 180 Tab 1 12/29/2020 Active Cinnamon 500 MG Oral Capsule Take [...] 7.0% ([facility]) Inject one pen (4.5 mg) under the skin once weekly 6 mL 3 04/23/2021 Active Senna-Docusate Sodium 8.6-50 MG Oral Tablet Take 1 Tab by mouth daily. 90 Tab 0 04/29/2021 Active Nadolol 40 MG Oral Tablet (Corgard)Indication [...] day max 360 Cap 1 06/04/2021 Active Sulfamethoxazole-Tr imethoprim 800-160 MG Oral Tablet (Bactrim DS) Take 1 Tab by mouth 2 times a day for 10 days. Until gone. 20 Tab 0 06/08/2021 06/18/2021 Active documented as of this encounter (statuses as of 06/10/2021) Active Problems Problem Noted Date Food insecurity [...] as of this encounter (statuses as of 06/10/2021) Resolved Problems Problem Noted Date Resolved Date [...] failure 04/08/2019 04/18/2019 Oxygen dependent 04/08/2019 04/18/2019 [facility] resident 04/08/2019 05/02/2019 Fall 04/04/2019 05/05/2020 Sprain [...] pain 01/24/2012 01/17/2017 Genetic Sleep Disorder Research Other*[id number] 05/13/2011 04/07/2016 Obstructive sleep apnea 01/18/2011 12/27/19 [...] as of this encounter (statuses as of 06/10/2021) Immunizations Name Administration Dates Next Due COVID-19 [...] Family Medicine Vanita Dunn MD [address] [place] [address] [phone] 06/16/2021 Nutrition Services Gastroenterology Melissa Omalley RDN [address] [place] [address] [phone] 06/21/2021 Office Visit Pharmacy [facility] [address] [place] [address] [phone] 06/24/2021 Cardiac Studies Cardiac Studies Gw, Plumbing Inspector 1 [address] [place] [address] [phone] 07/02/2021 Immunization/Injecti o n Hematology Oncology Nurse, Med [address] [place] [address] [phone] 07/06/2021 Office Visit Hematology Oncology Tono Sanchez MD [address] [place] [address] [phone] 07/22/2021 Office Visit Pulmonary Reynaldo Marquez MD [address] [place] [address] [id number] 07/26/2021 Office Visit Cardiology Quyen Canseco CRNP [address] [facility] [place] [address] [phone] 07/27/2021 Office Visit Gastroenterology Lyssa Stout, ZAK [address] [facility] [place] [address] [phone] 08/11/2021 Office Visit Endocrinology Alberta Duque PA-C [address] [facility] [place] [address] [phone] 09/09/2021 Imaging Radiology Pending Results Name Type Priority Associated Diagnoses Date /Time HEMOGLOBIN A1C Lab Routine Type 2 diabetes mellitus with hemoglobin A1c goal of less than 8.0% ([facility]) 06/10/2021 2:45 PM EDT TSH WITH FREE T4 IF INDICATED Lab Routine Type 2 diabetes mellitus with hemoglobin A1c goal of less than 8.0% ([facility]) 06/10/2021 2:45 PM EDT BASIC METABOLIC PANEL Lab Routine Type 2 diabetes mellitus with hemoglobin A1c goal of less than 8.0% ([facility]) 06/10/2021 2:45 PM EDT Health Maintenance Due Date Last Done Comments DIABETES-EYE EXAM 06/12/2019 06/12/2018, , 06/12/2018, Additional history exists Dexa Scan 2020 Zoster Vaccines (3 of 3) 06/23/2020 04/28/2020, 11/11 DIABETES-HGBA1C EVERY 6 MONTHS 09/07/2021 03/08/2021, 11/30/2020, 07/06/2020, Additional history exists BREAST CANCER SCREENING DISCUSSION YEARLY AGES 40-75 09/08/2021 09/08/2020, 09/02/2019, 04/04/2018, Additional history exists Yearly B-12 04/01/2022 04/01/2021, [...] of this encounter Implants Implanted Type Area Rim Technician Device Identifier Shelf Expiration Date Model / Serial / Lot Microtech Sure Clip Implanted:Qty: 2 on 06/03/2020 by Janis Hatch DO at OR [facility] Clip N/A: Colon 04/21/2022 [facility]-F-26-2 35-C-R / / [id number] documented as of this encounter Visit Diagnoses Diagnosis Type 2 diabetes mellitus with hemoglobin A1c goal of less than 8.0% (HCC) documented in this encounter Advance Directives Documents on File Type Date Recorded Patient Tire Adjuster Expl anation Advance Directives and Living Will 04/29/2021 12:00 AM ADVANCE DIRECTIVE / LIVING WILL LIVING WILL AND HEALTH CARE POA Power of Senior Digital Designer 04/29/2021 12:00 AM TOM R OF ARCHITECTURE PROFESSOR HEALTH CARE POA Advanced 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 Agents on File Name Relationship Healthcare Agent Romainsd navya Communication Syed Fariasel Spouse Emergency Contact
--- OUTSIDE RECORDS SUMMARY | 2023-05-10 20:15 | External Medical Summary | Summary of Care ---
Author Name Unknown Organization [facility] [address] Care Team Providers Care Refueling Ramp Supervisor Name Role Phone Vanita Dunn MD Primary Care Provid er Reason for Visit * Reason Onset Date Comments Diabetes Follow-Up Medication Administration 06/10/2021 Flu an d/or Pneumo Inj * Evaluate & Treat - Unlimited Visits (Within 30 days (routine)) Status Reason Specialty Diagnoses / Procedures Referred By Contact Referred To Contact Closed Specialty Services Required Endocrinology/Metab olism / Endocrinology Diagnoses DM type 2 with diabetic peripheral neuropathy (HCC) Brianne Pal PA-C [address] [place] [address] Encounter Details Date Type Department Care Team Description 06/10/2021 Office Visit Endocrinology, [place] [address] [place] [address] Alberta Duque PA-C [address] [place] [address] Type 2 diabetes mellitus with hemoglobin A1c goal of less than 8.0% ([facility])*; Need for prophylactic vaccination and inoculation against influenza; Acquired hypothyroidism Allergies Active Allergy Reactions Severity [...] 120 Vial 11 10/02/2019 Active nystatin (NYSTOP) 888488 UNIT/GM powder Apply topically to affected area [...] 60 Each 3 07/27/2020 Active Dexcom G6 Member Of [place] Device Use as directed. To test blood [...] Strip 3 10/29/2020 Active OneTouch Delica Plus [id number] TESTING once daily 100 Each 3 10/29/2020 Active Levothyroxine Sodium 200 MCG Oral [...] less than 7.0% ([facility]) Use to inject insulin four times daily; E11.42 400 Each 3 12/05/2020 Active Fluticasone Propionate 50 MCG/ACT Nasal Suspension (Flonase)Indication s:Sinus congestion USE 2 SPRAYS IN EACH NOSTRIL ONCE DAILY as directed 16 g 5 12/23/2020 Active Additional Information Patient taking differently: 2 [place] Nasal DAILY PRN, Congestion, Informant: Pharmacy, Reported [...] less than 7.0% ([facility]) Inject one pen (4.5 mg) [...] pain 01/24/2012 01/17/2017 Genetic Sleep Disorder Research Other*[id number] 05/13/2011 04/07/2016 Obstructive sleep apnea 01/18/2011 12/27/19 [...] Sign Reading Time Taken Comments Blood Pressure 122/72 06/10/2021 1:28 PM EDT Pulse 66 06/10/2021 1:28 PM EDT Temperature 36.5 C (97.7 F) 06/10/2021 1:28 PM ED T Respiratory Rate - - Oxygen Saturation - - Inhaled Oxygen Concentration - - Weight 117.9 kg (260 lb) 06/10/2021 1:28 PM EDT Height 149.9 cm (4' 11") 06/10/2021 1:28 PM EDT Body Mass Index 52.51 06/10/2021 1:28 PM EDT documented in this encounter Functional [...] * Patient Instructions* Alberta Duque PA-C - 06/10/2021 2:08 PM EDT Follow Up: Return for Diabetes Return. | For: Diabetes Return | Check-out note: Accepted appointment on 08/11/2021 at 2 pm, in person, thanks! documented in this encounter Progress Notes * Alberta Duqeu PA-C - 06/10/2021 1:30 PM EDT CC Diabetes mellitus type 2 Hypothyroidism Follow up HPI Shaina Bustos is a 65 year old female who was diagnosed with diabetesabout 2 years ago. Familyhistory of diabetes includes father T2DM, sister T2DM. Diabetes historically has been uncontrolled. At home, primary hearing healthcare practitioner Since last visit - blood sugars still above goal - most recent A1C was 8.5% - is closely following with [facility] pharmacy Blood sugar monitoring - Dexcom G6 - able to view download Continuous Glucose Monitoring Sensor Interpretation: Dates of Study: 05/28/2021-06/10/2021 Please see the documents related to this report, which contains the graphical representations of the continuous glucose monitoring data on TSEFFENO. This data was reviewed in detail and used to generate this summary report. Time in range :13% Time above range:30% high , 57% very high Time below range : 0% Nocturnal Glucose Control: Uncontrolled glucose observed by CGMS : yes - Hyperglycemia Post Prandial Glucose Excursions: Uncontrolled glucose observed by CGMS: yes - Hyperglycemia Hypoglycemia Incidence: Uncontrolled glucose observed by CGMS :no Current DM Rx: Novolog, Inject 32 units before breakfast, 36 units before lunch, and 36 units before supper- + a sliding scale that they have at home Lantus 32 units a day Metformin 500 mg daily Trulicity 4.5mg SQ weekly Diet: - most of the time eats breakfast lunch and dinner - however does admit to skipping meals some days Exercise: Limited to none HYPOTHYROIDISM Currently taking 200 mcg levothyroxine Last TSH low , free T4 elevated Weight: Wt Readings from Last 4 Encounters: 06/10/21 117.9 kg (260 lb) 04/08/21 117.9 kg (260 lb) 04/03/21 126.1 kg (278 lb) 03/24/21 120.9 kg (266 lb 9.6 oz) Hypoglycemia Denies Microvascular complications: Neuropathy:: YES. Followed by podiatry : YES. Current issues with feet: : YES, healing diabetic ulcer Nephropathy:: NO. Last urine mc below. ACEi/ARB: Denies Retinopathy:: NO. Last eye exam >1 year. Macrovascular complications: Stroke: NO Heart attack: NO Peripheral arterial disease: YES Risk factors: Hypertension: : NO Hyperlipidemia: : YES Smoking: : NO ASA: : YES PMH Past Medical History: Diagnosis Date Cerebral palsy [...] less than 7.0% ([facility]) 09/26/2013 ICD-10 update of inactive term PSH Past Surgical History: Procedure Laterality Date BONE DEBRIDEMENT, FIRST 20 CM2 Right 04/16/2020 DEBRIDEMENT SKIN SUBCUTANEOUS TISSUE MUSCLE AND BONE performed by Josh Vazquez MD at OR [facility] DELIVERY 04/20/1982 COLONOSCOPY 04/21/2009 repeat in 10 years COLONOSCOPY, DIAGNOSTIC (RECTUM) 10/04/2016 normal bx, repeat 10 yrs/[facility] COLONOSCOPY, DIAGNOSTIC (RECTUM) N/A 06/03/2020 internal hemorrhoids/biopsies show adenomatous polyps/recall 5 years/COLONOSCOPY FLEXIBLE PROXIMAL DIAGNOSTIC performed by Janis Hatch DO at OR [facility] COLONOSCOPY, DIAGNOSTIC (RECTUM) 03/17/2020 poor prep / [facility] DENTAL SURGERY PROCEDURE NEC wisdom teeth x 4 DILATION AND CURETTAGE (D&C) EGD, FLEXIBLE, DIAGNOSTIC 10/04/2016 gastritis/[facility] EGD, FLEXIBLE, DIAGNOSTIC 01/11/2018 eso varices, retained food, repeat 1 yr/[facility] EGD, FLEXIBLE, DIAGNOSTIC N/A 06/03/2020 severe erosive esophagitis/non-bleeding grade II esophageal varices/gastritis/biopsies show inflammatory changes/repeat 3-4 months/ESOPHAGOGASTRODUODENOSCOPY (EGD), FLEXIBLE, TRANSORAL, DIAGNOSTIC per formed by Janis Hatch DO at OR [facility] EGD, FLEXIBLE, DIAGNOSTIC 11/27/2019 eso varices, portal hypertensive gastropathy, gastritis / [facility] EGD, FLEXIBLE, DIAGNOSTIC N/A 08/05/2020 large amount of food in stomach/repeat 1.5 years/ESOPHAGOGASTRODUODENOSCOPY (EGD), FLEXIBLE, TRANSORAL, DIAGNOSTIC performed by Janis Hatch DO at OR [facility] EGD, FLEXIBLE, DIAGNOSTIC N/A 03/10/2021 ESOPHAGOGASTRODUODENOSCOPY (EGD), FLEXIBLE, TRANSORAL, DIAGNOSTIC performed by Kris Blankenship MD at ENDOSCOPY [facility] IR VENOUS ACCESS MEDIPORT 10/05/2020 PELVIS/HIP JOINT SURGERY NEC teenager aid in walking REPAIR/GRAFT ACHILLES TENDON age 40 aid in walking MEDS Outpatient Medications Marked as Taking for the 06/10/21 encounter (Office Visit) with Alberta Duque PA-C Medication Sig Lantus SoloStar 100 UNIT/ML Subcutaneous Solution Pen-injector (Insulin Glargine) inject 32 units under skin at bedtime metFORMIN HCl ER 500 MG Oral Tablet Extended Release 24 Hour (Glucophage XR) Take one tablet bymouth daily with a meal Trulicity 4.5 MG/0.5ML Subcutaneous Solution Pen-injector (Dulaglutide) Inject one pen (4.5 mg)under the skin once weekly NovoLOG FlexPen 100 UNIT/ML Subcutaneous Solution Pen-injector Inject under the skin three times a day before meals. Sliding scale BD Pen Needle Mini U/F 31G X 5 MM (Insulin Pen Needle) Use to inject insulin four times daily; E11.42 OneTouch Delica Plus [id number] TESTING once daily OneTouch Verio In Vitro Strip (Glucose Blood) TESTING once daily Dexcom G6 Member [employer] Device Use as directed. To test blood sugars 4 times a day Dx E11.9 Dexcom G6 Sensor Use as directed. To test blood sugars 4 times a day. Change sensor every 10 days. Dx E11.9 Please dispense 3 boxes for 90 day supply ALL Reviewed and updated in the appropriate section of the electronic health record SH Social History Tobacco Use Smoking status: Never Smoker Smokeless tobacco: Never Used Substance Use Topics Alcohol use: No Drug use: No Comment: too much soda FH Family History Problem Relation Age of Onset Heart Disorder Father of CA at age 61 Diabetes Father Heart Disorder Mother of CA age 72 Cancer None Arthritis None Stroke None Heart Disorder Sister Mi at age 46 Hypertension Sister Mental Disorder None ROS 10 systems reviewed , as per HPI All other were negative. PE Filed Vitals: 06/10/21 1328 BP: 122/72 Pulse: 66 Temp: 36.5 C (97.7 F) Weight: 117.9 kg (260 lb) Height: (!) 1.499 m (4' 11") Body mass index is 52.51 kg/m. Gen: appears well, in NAD HEENT: no conjunctival injection, MMM Resp: normal respiratory pattern, no dyspnea with conversation CV: no cyanosis or edema Skin: no rash MSK: 4 extremities intact, [place] Neuro: awake, alert, appropriate RECORDS I reviewed the available medical records regarding her diabetes management and have summarized the relevant information per HPI above. LABS Ref. Range 11/30/2020 11:32 03/08/2021 03:40 Hemoglobin A1C Latest Ref Range: 4.0 - 5.6 % 6.9 (H) 8.5 (H) Ref. Range 02/21/2020 11:43 07/14/2020 16:24 02/04/2021 01:17 04/05/2021 13:42 TSH Latest Ref Range: 0.27 - 4.20 uIU/mL 5.15 (H) 0.69 0.17 (L) 0.02 (L) TSH WITH FREE T4 IF INDICATED Unknown Rpt (A) Rpt Rpt (A) FREE T4 REFLEXIVE Latest Ref Range: 0.9 - 1.7 ng/dL 1.54 NOT APPLICABLE T4, Free Latest Ref Range: 0.9 - 1.7 ng/dL 1.7 2.4 (H) T3, Free Latest Ref Range: 2.5 - 4.3 pg/mL 2.5 Ref. Range 06/06/2021 17:46 Sodium Latest Ref Range: 135 - 146 mmol/L 139 Potassium Latest Ref Range: 3.5 - 5.1 mmol/L 4.7 Chloride Latest Ref Range: 98 - 107 mmol/L 108 (H) CO2 Latest Ref Range: 22 - 32 mmol/L 22 BUN Latest Ref Range: 6 - 20 mg/dL 15 Creatinine Latest Ref Range: 0.5 - 1.0 mg/dL 0.7 Estimated Glomerular Filtration Rate Latest Ref Range: >=60.0 mL/min >90.0 Anion Gap Latest Ref Range: 7 - 15 mmol/L 9 Glucose Latest Ref Range: 70 - 120 mg/dL 292 (H) Calcium Latest Ref Range: 8.4 - 10.2 mg/dL 9.3 IMP Shaina Bustos is a 66 year old female here for follow up for T2DM. Since last visit, blood sugars are still above goal. Does have times that they are within goal ( after dinner and after lunch ). Wrote down plan on log book so they have a place to write if she eats, and how many units of insulin she is taking. This way can adjust the insulin better. Gave SS 2:50>150 ACHS , however most likely needs more aggressive. confirmed understanding. If she doesn't eat can still take correction. Can keep 32 u at bf, 36 u at lunch and dinner. Discussed to give SS at bedtime. If she is eating a midnight snack may need to add Novolog coverage. Most recent TFT showed low TSH and elevated Free T4, recommend updated labs, may need to decrease levothyroxine dose . Gave scheduling number to set up appointment with podiatry. PLAN Type 2 diabetes mellitus with hemoglobin A1c goal of less than 8.0% ([facility]) (Primary) - HEMOGLOBIN A1C; Future; Expected date: 06/10/2021 - TSH WITH FREE T4 IF INDICATED; Future; Expected date: 06/10/2021 - BASIC METABOLIC PANEL; Future; Expected date: 06/10/2021 Need for prophylactic vaccination and inoculation against influenza - INFLUENZA VACC, QUAD, HIGH DOSE (FLUZONE HD) Acquired hypothyroidism -please get updated labs today, will need to recheck thyroid function - use new sliding scale 2:50>150 ACHS - Novolog 32 u at bf, 36 u at lunch and dinner. - continue Lantus 32 units - continue Trulicity 4.5 mg /week - continue metformin er 500 mg daily Follow Up: Return for Diabetes Return. | For: Diabetes Return | Check-out note: Accepted appointment on 08/11/2021 at 2 pm, in person, thanks! I spent a total of 30-39 minutes (exact time 35 mins) on the date of service in preparation, delivery, and documentation of the care provided to Shaina Bustos excluding any time spent in the performance of separately billed services. Alberta Duque PA-C [facility] Endocrinology [address] [facility] [address] Phone: [phone] Fax: [phone] documented in this encounter Nursing Notes * Neema Barakat LPN - 06/10/2021 1:19 PM EDT Dexcom report printed. Patient was instructed to stay on the stretcher/chair until directed and assisted by their nurse; patient is to remain seated on the stretcher/chair for fall prevention and safety reasons. Patient isaware to have assistance to step off the stretcher/chair with personnel. Patient voiced full comprehension of instructions. Covid 19 question reviewed all answers negative. documented in this encounter Plan of Treatment Upcoming Encounters Date Type Specialty Care Team Description 06/14/2021 Office Visit Family Medicine Vanita Dunn MD [address] [place] [address] [phone] 06/16/2021 Nutrition Services Gastroenterology Melissa Omalley, RDShae [address] [facility] [place] [address] [phone] 06/21/2021 Office Visit Pharmacy [facility] [address] [place] [address] [phone] 06/24/2021 Cardiac Studies Cardiac Studies Gw, Tool And Die Repairer 1 [address] [facility] [place] [address] [phone] 07/02/2021 Immunization/Injecti o n Hematology Oncology Nurse, Med 4 [address] [place] [address] [phone] 07/06/2021 Office Visit Hematology Oncology Tono Sanchez MD [address] [facility] [place] [address] [phone] 07/22/2021 Office Visit Pulmonary Reynaldo Marquez MD [address] [place] [address] [phone] 07/26/2021 Office Visit Cardiology Quyen Canseco CRNP [address] [place] [address] [phone] 07/27/2021 Office Visit Gastroenterology Lyssa Stout CRNP [address] [place] [address] [phone] 08/11/2021 Office Visit Endocrinology Alberta Duque PA-C [address] [facility] [address] 09/09/2021 Imaging Radiology Health Maintenance Due [...] this encounter Implants Implanted Type Area Glass Processing Worker Device Identifier Shelf Expiration Date Model / Serial / Lot Microtech Sure Clip Implanted:Qty: 2 on 06/03/2020 by Janis Hatch DO at OR [facility] Clip N/A: Colon 04/21/2022 [facility]-F-26-2 35-C-R / / [id number] documented as of this encounter Results * BASIC METABOLIC PANEL (06/10/2021 2:45 PM EDT) BUN 15 6 - 20 mg/dL [facility] Creatinine 0.8 0.5 - 1.0 mg/dL [facility] Estimated Glomerular Filtration Rate 79.5Comment:If patient is , multiply estimated GFR by 1.159. >=60.0 mL/min [facility] Sodium 141 135 - 146 mmol/L [facility] Potassium 4.6 3.5 - 5.1 mmol/L [facility] Chloride 111(H) 98 - 107 mmol/L [facility] CO2 21(L) 22 - 32 mmol/L [facility] Anion Gap 9 7 - 15 mmol/L [facility] Glucose 166(H) 70 - 120 mg/dL [facility] Calcium 9.1 8.4 - 10.2 mg/dL [facility] Specimen Blood - Venous blood specime n (specimen) [facility] [address] [place] [address] * TSH WITH FREE T4 IF INDICATED (06/10/2021 2:45 PM EDT) TSH 0.02(L) 0.27 - 4.20 uIU/mL [facility] Specimen Blood - Venous blood specime n (specimen) [facility] [address] [place] [address] * HEMOGLOBIN A1C (06/10/2021 2:45 PM EDT) Hemoglobin A1C 7.4(H)Comment:The use of HbA1c to monitor glycemic status is based on normal hemoglobin and HbA composition. This test should not be used in patients with abnormal hemoglobin that affects the half life of the red blood cell or the in vivo glycation rates. 4.0 - 5.6 % [facility] Estimated Average Glucose 166(H) <126 mg/dL [facility] Specimen Blood - Venous blood specime n (specimen) Performing Organization Address City/State/[facility] Co de Phone Number LAB[facility]ATORY [facility] [address] [place] [address] documented in this encounter Visit Diagnoses Diagnosis Type 2 diabetes mellitus with hemoglobin A1c goal of less than 8.0% (HCC)- Primary Need for prophylactic vaccination and inoculation against influenza Acquired hypothyroidism Unspecified hypothyroidism documented in this encounter Advance Directives Documents on File Type Date Recorded Patient Cook Supervisor Expl anation Advance Directives and Living Will 04/29/2021 12:00 AM ADVANCE DIRECTIVE / LIVING WILL LIVING WILL AND HEALTH CARE POA Power of Oiler Bander 04/29/2021 12:00 AM TOM R OF HYDRAULICS ENGINEER HEALTH CARE POA Advanced Directive service [...]
--- OUTSIDE RECORDS SUMMARY | 2023-05-10 20:15 | External Medical Summary | Summary of Care ---
Author Name Unknown Organization [place] [address] Care Team Providers Care Results Engineer Name Role Phone Kojo Dunn MD Primary Care Provid er Reason for Visit * Reason Comments eRx-Medication Refill Encounter Details Date Type Department Care Team Description 06/09/2021 Refill [place] [address] [place] [address] Alexandra Caceres, [address] [place] [address] Sleep disturbances; NAFLD (nonalcoholic fatty liver disease); Other cirrhosis [...] 120 Vial 11 10/02/2019 Active nystatin (NYSTOP) 610081 UNIT/GM powder Apply topically to affected area [...] 60 Each 3 07/27/2020 Active Dexcom G6 Case Advocate Device Use as directed. To test blood [...] TO ACCESSING. 30 g 3 10/09/2020 Active RAZ Mobile Verio In Vitro Strip (Glucose Blood) TESTING once daily 100 Strip 3 10/29/2020 Active OneTouch Delica Plus [id number] TESTING once daily 100 Each 3 10/29/2020 [...] ons:Recurrent major depressive disorder, in partial remission ([facility]) TAKE 1 TABLET BY MOUTH ONCE [...] days. Until gone. 20 Tab 0 06/08/2021 1 Active traZODone HCl 50 MG Oral Tablet (Desyrel)Indicati ons:Sleep disturbances TAKE 1 TABLET ONCE DAILY AT BEDTIME 90 Tab 3 06/11/2021 Active Pantoprazole Sodium 20 MG Oral Tablet Delayed Release (Protonix)Indicat ions:NAFLD (nonalcoholic fatty liver disease),Other cirrhosis of liver (HCC) TAKE 2 TABLETS BY MOUTH TWICE DAILY 360 Tab 3 06/11/2021 Active traZODone HCl 50 MG Oral Tablet (Desyrel)Indicati ons:Sleep disturbances TAKE 1 TABLET BY MOUTH AT BEDTIME 90 Tab 2 11/30/2020 1 Discontinued Fluticasone Propionate 50 MCG/ACT Nasal Suspension (Flonase)Indicati ons:Sinus congestion USE 2 SPRAYS IN EACH NOSTRIL ONCE DAILY as directed 16 g 5 12/23/2020 1 Discontinued Pantoprazole Sodium 20 MG Oral Tablet Delayed Release (Protonix)Indicat ions:NAFLD (nonalcoholic fatty liver disease),Other cirrhosis of liver (HCC) TAKE 2 TABLETS BY MOUTH TWICE DAILY 180 Tab 1 12/29/2020 1 Discontinued documented as of this encounter [...] Splenomegaly 12/03/2019 Thrombocytopenia 05/02/2019 Gastroesophageal reflux disease 07/29/20 19 History of Achilles tendon repair 2018 [...] pain 01/24/2012 01/17/2017 Genetic Sleep Disorder Research Other*[id number] 05/13/2011 04/07/2016 Obstructive sleep apnea 01/18/2011 12/27/19 [...] Notes * Telephone Encounter - Danilo Talavera RPh - 06/11/2021 10:27 AM EDT Signed Prescriptions: Disp Refills traZODone HCl 50 MG Oral Tablet (Desyrel) 90 Tab 3 Sig: TAKE 1 TABLET ONCE DAILY AT BEDTIME Authorizing Provider: KOJO DUNN User: DANILO TALAVERA Pantoprazole Sodium 20 MG Oral Tablet Kandi*360 Tab3 Sig: TAKE 2 TABLETS BY MOUTH TWICE DAILYAuthorizing Provider: KOJO DUNN User: DANILO TALAVERARefused Prescriptions:Disp Refills Levothyroxine Sodium 200 MCG Oral Tablet (*90 Tab 0 Sig: TAKE 1 TABLET BY MOUTH ONCE DAILYRefused By: DANILO TALAVERA for Refusal: Too soonReason for Refusal Comment: year of refills sent in October documented in this encounter Plan of Treatment Upcoming Encounters Date Type Specialty Care Team Description 06/14/2021 Office Visit Family Medicine Kojo Dunn MD [address], [place] [address] 06/16/2021 Nutrition Services Gastroenterology Melissa Omalley, RDN [address] [facility] [place] [address] [phone] 06/21/2021 Office Visit Pharmacy [facility] [address], [place] [id number] 06/24/2021 Cardiac Studies Cardiac Studies Gw, Addiction Social Worker 1 [address] [facility] [place] [address] [phone] 07/02/2021 Immunization/Injecti o n Hematology Oncology Nurse, Med [address] [place] [address] [phone] 07/06/2021 Office Visit Hematology Oncology Tono Sanchez MD [address] [place] [address] [phone] 07/22/2021 Office Visit Pulmonary Reynaldo Marquez MD [address] [place] [address] [phone] 07/26/2021 Office Visit Cardiology Quyen Canseco CRNP [address] [facility] [place] [address] [phone] 07/27/2021 Office Visit [facility]enterology [facility]out CR[facility] [address] [facility] [place] [address] [phone] 08/11/2021 Office Visit Endocrinology Alberta Duque PA-C [address] [place] [address] 09/09/2021 Imaging Radiology Health Maintenance [...] this encounter Implants Implanted Type Area Supervisor Labor Gang Device Identifier Shelf Expiration Date Model / Serial / Lot Microtech Sure Clip Implanted:Qty: 2 on 06/03/2020 by Janis Hatch DO at OR [facility] Clip N/A: Colon 04/21/2022 [facility]-F-26-2 35-C-R / / [id number] documented as of this encounter Visit Diagnoses Diagnosis Sleep disturbances Sleep disturbance, unspecified NAFLD (nonalcoholic fatty liver disease) Other chronic nonalcoholic liver disease Other cirrhosis of liver (HCC) documented in this encounter Advance Directives Documents on File Type Date Recorded Patient Bilingual Inside Sales Representative Expl anation Advance Directives and Living Will 04/29/2021 12:00 AM ADVANCE DIRECTIVE / LIVING WILL LIVING WILL AND HEALTH CARE POA Power of Forensic Toxicologist 04/29/2021 12:00 AM TOM R OF PURCHASE ANALYST HEALTH CARE POA Advanced Directive service [...]
--- OUTSIDE RECORDS SUMMARY | 2023-05-10 20:16 | External Medical Summary ---
Author Name Unknown Address Unknown Organization [id number]:LAB[facility]ATORY [facility] - [address] [place] [address] Laboratory Report Ordering Provider Test Date Status VICKY HUGHES 06/10/2021 14:45:38 Final Observation Date Value Abnormality Reference (Units ) Status HbA1C 06/10/2021 14:45:38 7.4 Above high normal 4. 0-5.6 (%) Final Performing Location [facility] - [address] [place] [address]
--- OUTSIDE RECORDS SUMMARY | 2023-05-10 20:16 | External Medical Summary ---
Author Name Unknown Address Unknown Organization [id number]:[facility] [place] [address] [facility] [address] Laboratory Report Ordering Provider Test Date Status VICKY HUGHES 06/10/2021 14:45:39 Final Observation Date Value Abnormality Reference (Units ) Status BUN 06/10/2021 14:45:39 15 6-20 (mg/dL) Final Creatinine 06/10/2021 14:45:39 0.8 0.5-1.0 (mg/dL) Final Glomerular filtration rate/1.73 sq M.predicted [Volume Rate/Area] in Serum, Plasma or Blood by Creatinine-based formula (CKD-EPI) 06/10/2021 14:45:39 79.5 >=60.0 (mL/min) Final Performing Location [facility] - [address] [facility] [address]
--- OUTSIDE RECORDS SUMMARY | 2023-05-10 20:16 | External Medical Summary ---
Author Name Unknown Address Unknown Organization [id number]:[facility] [place] [address] [place] [address] Laboratory Report Ordering Provider Test Date Status VICKY HUGHES 06/10/2021 14:45:39 Final Observation Date Value Abnormality Reference (Units ) Status T4, Free 06/10/2021 14:45:39 2.0 Above high normal 0. 9-1.7 (ng/dL) Final Performing Location [facility] - [address] [place] [address]
--- OUTSIDE RECORDS SUMMARY | 2023-05-10 20:16 | External Medical Summary | Summary of Care ---
Author Name Unknown Organization [facility] [place] [address] Care Team Providers Care Licensed Customs Broker Name Role Phone Vanita Dunn MD Primary Care Provid er Reason for Visit * Reason Onset Date Comments Advice 05/26/2021 Encounter Details Date Type Department Care Team Description 05/26/2021 Telephone [facility] [address] [place] [address] Vanita Dunn MD [address] [place] [address] Advice Allergies Active Allergy Reactions Severity Noted Date Comments Adhesive Tape Itching 04/29/2020 Penicillins Rash 02/12/2008 Perflutren Protein A Microsph 2019 Definity-lower back pain documented as of this encounter (statuses as of 06/08/2021) Medications Medication Sig Dispensed Refills Start Date [...] 120 Vial 11 0 Active nystatin (NYSTOP) 710321 UNIT/GM powder Apply topically to affected area [...] 60 Each 3 0 Active Dexcom G6 Printing Film Stripper Device Use as directed. To test [...] TO ACCESSING. 30 g 3 1 Active EmerGeo SolutionsTouch Verio In Vitro Strip (Glucose Blood) TESTING once daily 100 Strip 3 1 Active OneTouch Delica Plus [id number] TESTING once daily 100 Each 3 1 Active Levothyroxine Sodium 200 MCG Oral Tablet (Levoxyl) TAKE 1 TABLET BY MOUTH ONCE DAILY 90 Tab 3 1 Active Linzess 290 MCG Oral Capsule (linaCLOtide) TAKE 1 CAPSULE BY MOUTH ONCE DAILY BEFORE BREAKFAST 90 Cap 1 1 Active traZODone HCl 50 MG Oral Tablet (Desyrel)Indicati ons:Sleep disturbances TAKE 1 TABLET BY MOUTH AT BEDTIME 90 Tab 2 1 Active BD Pen Needle Mini U/F 31G X 5 MM (Insulin Pen Needle)Indication s:Type 2 diabetes mellitus with hemoglobin A1c goal of less than 7.0% (HCC) Use to inject insulin four times daily; E11.42 400 Each 3 1 Active Fluticasone Propionate 50 MCG/ACT Nasal Suspension (Flonase)Indicati ons:Sinus congestion USE 2 SPRAYS IN EACH NOSTRIL ONCE DAILY as directed 16 g 5 1 Active Additional Information Patient taking differently: 2 [place] Nasal DAILY PRN, Congestion, Informant: Pharmacy, Reported on 02/04/2021 Escitalopram Oxalate 20 MG Oral Tablet (Lexapro)Indicati ons:Recurrent major depressive disorder, in partial remission (HCC) TAKE 1 TABLET BY MOUTH ONCE DAILY 90 Tab 3 1 Active Pantoprazole Sodium 20 MG Oral Tablet Delayed Release (Protonix)Indicat ions:NAFLD (nonalcoholic fatty liver disease),Other cirrhosis of liver (HCC) TAKE 2 TABLETS BY MOUTH TWICE DAILY 180 Tab 1 1 Active Cinnamon 500 MG Oral Capsule [...] mouth daily. 60 Tab 5 1 Active Lantus SoloStar 100 UNIT/ML Subcutaneous Solution Pen-injector (Insulin Glargine)Indicati ons:Type 2 diabetes mellitus with hemoglobin A1c goal of less than 7.0% (HCC) inject 28 units under skin at bedtime 30 mL 3 1 06/02/20 21 Discontinued Gabapentin 300 MG Oral Capsule (Neurontin) TAKE 1 CAPSULE BY MOUTH EVERY MORNING, 1 CAPSULE MIDDAY AND 2 CAPSULES IN THE EVENING. 360 Cap 1 1 06/04/20 21 Discontinued(Ref ill) documented as of this encounter (statuses as of 06/08/2021) Active Problems Problem Noted Date Food insecurity [...] as of this encounter (statuses as of 06/08/2021) Resolved Problems Problem Noted Date Resolved Date [...] pain 01/24/2012 01/17/2017 Genetic Sleep Disorder Research Other*[id number] 05/13/2011 04/07/2016 Obstructive sleep apnea 01/18/2011 12/27/19 [...] as of this encounter (statuses as of 06/08/2021) Immunizations Name Administration Dates Next Due COVID-19 [...] encounter Miscellaneous Notes * Telephone Encounter - Vivian Zhou OSA - 06/08/2021 11:52 AM EDT We were able to verify that Dr. Dunn is enrolled.Our Events Solutions Consultant was able to pull from [employer] and confirm. * Telephone Encounter - Vivian Zhou OSA - 06/07/2021 1:43 PM EDT Message sent to Operations for further assistance. * Telephone Encounter - Connie Arguello RN - 06/01/2021 12:15 PM EDT I am no longer following this patient-I do not know the answer to this questions, you may need to ask chas Hendrix RN * Telephone Encounter - Vanita Dunn MD - 05/31/2021 5:18 PM EDT How do I enroll with [employer]EC[employer]? * Telephone Encounter - Yanira Graves LPN - 05/26/2021 3:43 PM EDT Rajwinder states that she received a call from [facility] (phone # [phone]) tell her thatthey could not process patients order for her supplies They told her that there was some kind of a glitch She states that she receives the following from them: Bed pads Disposable Diapers Wipes Gloves Pt is almost out of supplies Contacted [facility], spoke with Ana Rosa She advised that Dr. Dunn is not enrolled in [employer] (online medicare management system) and this is why this pts order cant be processed She would like to know if PCP plans to enroll in [employer]? She states that she will switch pts order to Dr. Caceres (last order was placed using her as well)today to ship the order out now - pt will receive her order in 1-2 business days via UPS She will switch pts order back to PCP then If PCP does not plan to become enrolled with [employer] then we will need to call her back to have it switched again Called Mariely back and made her aware that they would be getting their supplies in 1-2 days via UPS documented in this encounter Plan of Treatment Upcoming Encounters Date Type Specialty Care Team Description 06/08/2021 Office Visit Family Medicine Ezekiel Bullard MD [address], [place] [id number] Arrived 06/10/2021 Office Visit Endocrinology Alberta Duque PA-C [address] [place] [address] 06/14/2021 Office Visit Family Medicine Vanita Dunn MD [address] [place] [address] [phone] 06/16/2021 Nutrition Services Gastroenterology Melissa Omalley, RDShae [address] [place] [address] [phone] 06/21/2021 Office Visit Pharmacy [facility] [address] [place] [address] [phone] 06/24/2021 Cardiac Studies Cardiac Studies Gw, Urban Planning Professor 1 [address] [place] [address] [phone] 07/02/2021 Immunization/Injecti o n Hematology Oncology Nurse, Med [address] [facility], [place] [address] [phone] 07/06/2021 Office Visit Hematology Oncology Tono Sanchez MD [address] [facility], [place] [address] [phone] 07/22/2021 Office Visit Pulmonary Reynaldo Marquez MD [address] [place] [address] [phone] 07/26/2021 Office Visit Cardiology [facility]sec[facility] [address] [facility] [place] [address] [phone] 07/27/2021 Office Visit Gastroenterology Lyssa Stout CRNP [address] [facility] [place] [address] [phone] 09/09/2021 Imaging Radiology Health Maintenance Due Date Last Done Comments DIABETES-EYE EXAM 06/12/2019 06/12/2018, , 06/12/2018, Additional history exists Dexa Scan 2020 Zoster Vaccines (3 of 3) 06/23/2020 04/28/2020, 11/11 Influenza Vaccine (FLU shot) (#1) 2021 06/01/2020, 06/05/2019, 05/16/2018, Additional history exists DIABETES-HGBA1C EVERY 6 MONTHS 09/07/2021 03/08/2021, 11/30/2020, [...] 05/01/2017, 05/26/2008 COVID-19 Vaccine Completed 12/21/2020, 11/23/2020 MENINGOCOCCAL (MENACTRA/MENVEO) Aged Out No longer eligible based on patient's age to complete this topic documented as of this encounter Implants Implanted Type Area Mechanical Design Engineer Device Identifier Shelf Expiration Date Model / Serial / Lot Microtech Sure Clip Implanted:Qty: 2 on 06/03/2020 by Janis Hatch DO at OR [facility] Clip N/A: Colon 04/21/2022 [facility]-2 35-C-R / / [id number] documented as of this encounter Advance Directives Documents on File Type Date Recorded Patient Brazer Induction Expl anation Advance Directives and Living Will 04/29/2021 12:00 AM ADVANCE DIRECTIVE / LIVING WILL LIVING WILL AND HEALTH CARE POA Power of Quill Stripper 04/29/2021 12:00 AM TOM R OF SERVICE CENTER MANAGER HEALTH CARE POA Advanced Directive service [...]
--- OUTSIDE RECORDS SUMMARY | 2023-05-10 20:16 | External Medical Summary | Summary of Care ---
Author Name Unknown Organization [place] [address] Care Team Providers Care Gaming Worker Name Role Phone Vanita Dunn MD Primary Care Provid er Reason for Visit * Reason Comments Hematuria Urinary Tract Infection Symptoms Encounter Details Date Type Department Care Team Description 06/08/2021 Office Visit [facility] [address] [place] [address] Ezekiel Bullard MD [address] [place] [address] Dysuria*; Hematuria, unspecified type Allergies Active Allergy Reactions Severity [...] 120 Vial 11 10/02/2019 Active nystatin (NYSTOP) 991419 UNIT/GM powder Apply topically to affected area [...] 60 Each 3 07/27/2020 Active Dexcom G6 Thermoforming Operator Device Use as directed. To test [...] Strip 3 10/29/2020 Active OneTouch Delica Plus Srswuh76B TESTING once daily 100 Each 3 10/29/2020 [...] 7.0% ([facility]) Use to inject insulin four times daily; E11.42 400 Each 3 12/05/2020 Active Fluticasone Propionate 50 MCG/ACT Nasal Suspension (Flonase)Indication s:Sinus congestion USE 2 SPRAYS IN EACH NOSTRIL ONCE DAILY as directed 16 g 5 12/23/2020 Active Additional Information Patient taking differently: 2 [place] Nasal DAILY PRN, Congestion, Informant: Pharmacy, Reported [...] 7.0% ([facility]) Inject one pen (4.5 mg) under the [...] pain 01/24/2012 01/17/2017 Genetic Sleep Disorder Research Other*[id number] 05/13/2011 04/07/2016 Obstructive sleep apnea 01/18/2011 12/27/19 [...] Reading Time Taken Comments Blood Pressure 128/70 06/08/2021 11:54 AM EDT Pulse 66 06/08/2021 11:54 AM EDT Temperature 37.1 C (98.8 F) 06/08/2021 11:54 AM E DT Respiratory Rate 18 06/08/2021 11:54 AM EDT Oxygen Saturation 94% 06/08/2021 11:54 AM EDT Inhaled Oxygen Concentration - - [...] as of this encounter Progress Notes * Ezekiel Bullard MD - 06/08/2021 1:31 PM EDT Subjective: Shaina Bustos is a 66 year old female here today for Chief Complaint Patient presents with Hematuria Urinary Tract Infection Symptoms Patient seen for an acute visit for urinary tract related symptoms. She has a complex past medical history as detailed below. This is my 1st visit with her. She reports 3 days burning with urination, urinary frequency with very little output, some possiblevaginal bleeding, change in the color of urine, increased low back pain. No fevers, vomiting. She is confined to wheelchair and needs a Svetlana lift at home. They do not believe they would be able to collect an adequate urine specimen. She states this feels similar to other urinary tract infections in the past. Past Medical History: Diagnosis Date Cerebral palsy [...] A1c goal of less than 7.0% (HCC) 09/26/2013 ICD-10 update of inactive term Past Surgical History: Procedure Laterality Date BONE DEBRIDEMENT, FIRST 20 CM2 Right 04/16/2020 DEBRIDEMENT SKIN SUBCUTANEOUS TISSUE MUSCLE AND BONE performed by Josh Vazquez MD at [place] [facility] DELIVERY 04/20/1982 COLONOSCOPY 04/21/2009 repeat in 10 years COLONOSCOPY, DIAGNOSTIC (RECTUM) 10/04/2016 normal bx, repeat 10 yrs/[facility] COLONOSCOPY, DIAGNOSTIC (RECTUM) N/A 06/03/2020 internal hemorrhoids/biopsies show adenomatous polyps/recall 5 years/COLONOSCOPY FLEXIBLE PROXIMAL DIAGNOSTIC performed by Janis Hatch DO at OR [facility] COLONOSCOPY, DIAGNOSTIC (RECTUM) 03/17/2020 poor prep / [facility] DENTAL SURGERY PROCEDURE NEC wisdom teeth x 4 DILATION AND CURETTAGE (D&C) EGD, FLEXIBLE, DIAGNOSTIC 10/04/2016 gastritis/[facility] EGD, FLEXIBLE, DIAGNOSTIC 01/11/2018 eso varices, retained food, repeat 1 yr/[facility] EGD, FLEXIBLE, DIAGNOSTIC N/A 06/03/2020 severe erosive esophagitis/non-bleeding grade II esophageal varices/gastritis/biopsies show inflammatory changes/repeat 3-4 months/ESOPHAGOGASTRODUODENOSCOPY (EGD), FLEXIBLE, TRANSORAL, DIAGNOSTIC per formed by Janis Hatch DO at OR [facility] EGD, FLEXIBLE, DIAGNOSTIC 11/27/2019 eso varices, portal hypertensive gastropathy, gastritis / [facility] EGD, FLEXIBLE, DIAGNOSTIC N/A 08/05/2020 large amount of food in stomach/repeat 1.5 years/ESOPHAGOGASTRODUODENOSCOPY (EGD), FLEXIBLE, TRANSORAL, DIAGNOSTIC performed by Janis Hatch DO at OR [facility] EGD, FLEXIBLE, DIAGNOSTIC N/A 03/10/2021 ESOPHAGOGASTRODUODENOSCOPY [...] Take 1 Tab by mouth 2 times aday for 10 days. Until gone. 20 Tab [...] Capsule Take 500 mg by mouth daily. Pantoprazole Sodium 20 MG Oral Tablet Delayed Release (Protonix) TAKE 2 TABLETS BY MOUTH TWICE DAILY 180 Tab 1 Escitalopram Oxalate 20 MG Oral Tablet (Lexapro) TAKE 1 TABLET BY MOUTH ONCE DAILY 90 Tab 3 Fluticasone Propionate 50 MCG/ACT Nasal Suspension (Flonase) USE 2 SPRAYS IN EACH NOSTRIL ONCE DAILY as directed (Patient taking differently: Administer 2 Sprays into nostril daily as needed for Congestion.) 16 g 5 BD Pen Needle Mini U/F 31G X 5 MM (Insulin Pen Needle) Use to inject insulin four times daily; E11.42 400 Each 3 traZODone HCl 50 MG Oral Tablet (Desyrel) TAKE 1 TABLET BY MOUTH AT BEDTIME 90 Tab 2 Linzess 290 MCG Oral Capsule (linaCLOtide) TAKE 1 CAPSULE BY MOUTH ONCE DAILY BEFORE BREAKFAST 90 Cap 1 Levothyroxine Sodium 200 MCG Oral Tablet (Levoxyl) TAKE 1 TABLET BY MOUTH ONCE DAILY 90 Tab 3 OneTouch Delica Plus [id number] TESTING once daily 100 Each 3 OneTouch Verio In Vitro Strip (Glucose Blood) TESTING once daily 100 Strip 3 Lidocaine-Prilocaine 2.5-2.5 % External Cream (Emla) Apply topically to affected area as needed forOther (for port). APPLY TO SKIN OVER MEDIPORT & COVER 1HR PRIOR TO ACCESSING. 30 g 3 Dexcom G6 Thermoforming Operator Device Use as directed. To test [...] With spacer 16 g 1 nystatin (NYSTOP) 748025 UNIT/GM powder Apply topically to affected area 3 times a day. 60 g 1 albuterol sulfate (PROVENTIL) (2.5 MG/3ML) 0.083% nebulizer solution Inhale 1 Vial via nebulizer every 6 hours as needed for Wheezing. 120 Vial 11 vitamin c (ASCORBIC ACID) 500 MG Tablet Take 500 mg by mouth daily. CENTRUM SILVER PO TABS Take 1 Tab by mouth daily. 1 Tab 0 Objective: BP 128/70 | Pulse 66 | Temp 37.1 C (98.8 F) (Tympanic) | Resp 18 | SpO2 94% GEN: NAD CHEST: CTA B CV: RRR : With assistance from nursing staff and was able to situate her chair that we could get an evaluation of the genital area. Do not see any masses or lesions. No open wounds or active bleeding. No internal exam was possible. Assessment and Plan: Dysuria (Primary) Hematuria, unspecified type -most likely, relates to urinary tract infection. Will treat with Bactrim. Patient aware it is at the pharmacy. I think it is likely that the bleeding is coming from the bladder and the urinary tractinfection. Do not see any external lesions. They will call if the bleeding does not improve with the antibiotic treatment. If she continues to have issues, will likely need exam by gynecology in caseit is vaginal or uterine bleeding. Other orders - Sulfamethoxazole-Trimethoprim 800-160 MG Oral Tablet (Bactrim DS); Take 1 Tab by mouth 2 times a day for 10 days. Until gone. 26 min with pt and documentation Ezekiel Bullard MD documented in this encounter Nursing Notes * Josselin Gaspar LPN - 06/08/2021 11:53 AM EDT The patient has been properly identified by confirmation of name and date of . Chief Complaint Patient presents with Hematuria Increased frequency with little output Complains of hematuria Blood on wipes Complains of being sore in her vaginal area Symptoms began three days ago documented in this encounter Plan of Treatment Upcoming Encounters Date Type Specialty Care Team Description 06/10/2021 Office Visit Endocrinology Alberta Duque PA-C [address] [place] [address] 06/14/2021 Office Visit Family Medicine Vanita Dunn MD [address], [place] [phone] 06/16/2021 Nutrition Services Gastroenterology Melissa Omalley, RDN [address] [place] [address] [phone] 06/21/2021 Office Visit Pharmacy [facility] [address] [place] [address] 06/24/2021 Cardiac Studies Cardiac Studies Gw, Clinic Assistant 1 [address] [place] [address] [phone] 07/02/2021 Immunization/Injecti o n Hematology Oncology Nurse, Med 4 [address] [place] [address] [phone] 07/06/2021 Office Visit Hematology Oncology Tono Sanchez MD [address] [place] [address] [phone] 07/22/2021 Office Visit Pulmonary Reynaldo Marquez MD [address] [facility] [place] [id number] 07/26/2021 Office Visit Cardiology Quyen Canseco CRNP [address] [facility] [address] [phone] 07/27/2021 Office Visit Gastroenterology Lyssa Stout CRNP [address] [facility] [place] [address] [phone] 09/09/2021 Imaging Radiology Health Maintenance Due Date [...] of this encounter Implants Implanted Type Area Sports Umpire Device Identifier Shelf Expiration Date Model / Serial / Lot Microtech Sure Clip Implanted:Qty: 2 on 06/03/2020 by Janis Hatch DO at OR [facility] Clip N/A: Colon 04/21/2022 [facility]-F-26-2 35-C-R / / [id number] documented as of this encounter Visit Diagnoses Diagnosis Dysuria- Primary Hematuria, unspecified type documented in this encounter Advance Directives Documents on File Type Date Recorded Patient Professor Of Biochemistry Expl anation Advance Directives and Living Will 04/29/2021 12:00 AM ADVANCE DIRECTIVE / LIVING WILL LIVING WILL AND HEALTH CARE POA Power of Rn Telemetry 04/29/2021 12:00 AM TOM R OF COMPUTATOR HEALTH CARE POA Advanced 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 Healthcare Agent [facility] p Communication Syed Bustos Spouse Emergency Contact "
--- OUTSIDE RECORDS SUMMARY | 2023-05-10 20:16 | External Medical Summary | Summary of Care ---
Author Name Unknown Organization [place] [address] Care Team Providers Care Marine Oil Terminal Superintendent Name Role Phone Vanita Dunn MD Primary Care Provid er Reason for Visit * Reason Comments Outpatient Testing Encounter Details Date Type Department Care Team Description 06/10/2021 Laboratory Outpatient Laboratory, [place] [address] [place] [id number] [place], Lab B1a [address] [place], [place] [id number] Type 2 diabetes mellitus with hemoglobin A1c goal of less than 8.0% ([facility]) Allergies Active Allergy Reactions Severity Noted Date [...] 120 Vial 11 10/02/2019 Active nystatin (NYSTOP) 263428 UNIT/GM powder Apply topically to affected area [...] 60 Each 3 07/27/2020 Active Dexcom G6 Business Information Consultant Device Use as directed. To test [...] Strip 3 10/29/2020 Active OneTouch Delica Plus Sihoyb35D TESTING once daily 100 Each 10/29/2020 Active [...] 7.0% ([facility]) Use to inject insulin four times daily; E11.42 400 Each 3 12/05/2020 Active Fluticasone Propionate 50 MCG/ACT Nasal Suspension (Flonase)Indication s:Sinus congestion USE 2 SPRAYS IN EACH NOSTRIL ONCE DAILY as directed 16 g 5 12/23/2020 Active Additional Information Patient taking differently: 2 [place] Nasal DAILY PRN, Congestion, Informant: Pharmacy, Reported [...] 7.0% ([facility]) Inject one pen (4.5 mg) under the [...] pain 01/24/2012 01/17/2017 Genetic Sleep Disorder Research Other*[id number] 05/13/2011 04/07/2016 Obstructive sleep apnea 01/18/2011 12/27/19 [...] Family Medicine Vanita Dunn MD [address] [place] [address] [phone] 06/16/2021 Nutrition Services Gastroenterology Melissa Omalley RDN [address] [place] [address] [phone] 06/21/2021 Office Visit Pharmacy [facility] [address] [place] [address] [phone] 06/24/2021 Cardiac Studies Cardiac Studies Gw, Temp Recruiter 1 [address] [facility] [place] [address] [phone] 07/02/2021 Immunization/Injecti o n Hematology Oncology Nurse, Med 4 [address] [place] [address] [phone] 07/06/2021 Office Visit Hematology Oncology Tono Sanchez MD [address] [place] [address] [phone] 07/22/2021 Office Visit Pulmonary Reynaldo Marquez MD [address] [place] [id number] 07/26/2021 Office Visit Cardiology Quyen Canseco CRNP [address] [facility] [place] [address] [phone] 07/27/2021 Office Visit Gastroenterology Lyssa Stout, [place] [address] [facility] [place] [address] [phone] 08/11/2021 Office Visit Endocrinology Alberta Duque PA-C [address] [facility] [place] [address] [phone] 09/09/2021 Imaging Radiology Health Maintenance Due Date [...] of this encounter Implants Implanted Type Area Fire Extinguisher Technician Device Identifier Shelf Expiration Date Model / Serial / Lot Microtech Sure Clip Implanted:Qty: 2 on 06/03/2020 by Janis Hatch DO at OR [facility] Clip N/A: Colon 04/21/2022 [facility]-F-26-2 35-C-R / / [id number] documented as of this encounter Visit Diagnoses Diagnosis Type 2 diabetes mellitus with hemoglobin A1c goal of less than 8.0% (HCC) documented in this encounter Advance Directives Documents on File Type Date Recorded Patient Software Development Project Manager Expl anation Advance Directives and Living Will 04/29/2021 12:00 AM ADVANCE DIRECTIVE / LIVING WILL LIVING WILL AND HEALTH CARE POA Power of Lead Ramp Service Man 04/29/2021 12:00 AM TOM R OF [place]YWALL STRIPPER HEALTH CARE POA Advanced 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 Agents on File Name Relationship Healthcare [facility] Communication Syed Bustos Spouse Emergency Contact
--- OUTSIDE RECORDS SUMMARY | 2023-05-10 20:16 | External Medical Summary ---
Author Name Unknown Address Unknown Organization [id number]:LABORATORY [facility] - [address] [place] [address] Laboratory Report Ordering Provider Test Date Status VICKY HUGHES 06/10/2021 14:45:39 Final Observation Date Value Abnormality Reference (Units ) Status TSH 06/10/2021 14:45:39 0.02 Below low normal 0.2 7-4.20 (uIU/mL) Final Performing Location LABORATORY C - [address] [place] [address]
--- OUTSIDE RECORDS SUMMARY | 2023-05-10 20:17 | External Medical Summary ---
Author Name Unknown Address Unknown Organization K01:LABORATORY [facility] - [address] [place] [address] Laboratory Report Ordering Provider Test Date Status RADAMES MOREAU 06/06/2021 17:46:00 Final Observation Date Value Abnormality Reference (Units ) Status CRP, low-sensitivity 06/06/2021 17:46:00 14 Above high normal <=5 (mg/L) Final Performing Location LABORATORY [facility] - [address] [place] [address]
--- OUTSIDE RECORDS SUMMARY | 2023-05-10 20:17 | External Medical Summary | Summary of Care ---
Author Name Unknown Organization [facility] Address [place] [address] Care Team Providers Care Business Law Teacher Name Role Phone Vanita Dunn MD Primary Care Provid er Reason for Visit * Reason Onset Date Comments Advice 05/26/2021 Encounter Details Date Type Department Care Team Description 05/26/2021 Telephone [facility] [address] [place] [address] Vanita Dunn MD [address] [place] [address] Advice Allergies Active Allergy Reactions Severity Noted Date Comments Adhesive Tape Itching 04/29/2020 Penicillins Rash 02/12/2008 Perflutren Protein A Microsph 2019 Definity-lower back pain documented as of this encounter (statuses as of 06/07/2021) Medications Medication Sig Dispensed Refills Start Date [...] 120 Vial 11 0 Active nystatin (NYSTOP) 641203 UNIT/GM powder Apply topically to affected area [...] 60 Each 3 0 Active Dexcom G6 Jar Capper Device Use as directed. To test blood [...] TO ACCESSING. 30 g 3 1 Active ON-S Segurança OnlineTouch Verio In Vitro Strip (Glucose Blood) TESTING once daily 100 Strip 3 1 Active OneTouch Delica Plus [id number] TESTING once daily 100 Each 3 1 [...] Active Additional Information Patient taking differently: 2 Matthews Nasal DAILY PRN, Congestion, Informant: Pharmacy, Reported [...] as of this encounter (statuses as of 06/07/2021) Active Problems Problem Noted Date Food insecurity [...] as of this encounter (statuses as of 06/07/2021) Resolved Problems Problem Noted Date Resolved Date [...] pain 01/24/2012 01/17/2017 Genetic Sleep Disorder Research Other*[id number] 05/13/2011 04/07/2016 Obstructive sleep apnea 01/18/2011 12/27/19 [...] as of this encounter (statuses as of 06/07/2021) Immunizations Name Administration Dates Next Due COVID-19 [...] call from [facility] (phone # [phone]) tell her thatthey could not process patients [...] Visit Endocrinology Alberta Duque PA-C [address] [place] [address] [phone] 06/14/2021 Office Visit Family Medicine Vanita Dunn MD [address] [place] [address] [phone] 06/16/2021 Nutrition Services Gastroenterology Melissa Omalley RDN [address] [facility] [place] [address] [phone] 06/21/2021 Office Visit Pharmacy [facility] [address], [place] [phone] 06/24/2021 Cardiac Studies Cardiac Studies Gw, Fringe Knotter 1 [address] [facility] [place] [address] [phone] 07/02/2021 Immunization/Injecti o n Hematology Oncology Nurse, Med [address] [place] [address] [phone] 07/06/2021 Office Visit Hematology Oncology Tono Sanchez MD [address] [place] [address] [phone] 07/22/2021 Office Visit Pulmonary Reynaldo Marquez MD [address] [place] [id number] 07/26/2021 Office Visit Cardiology [facility]en [facility]seco CRNP [facility] [place] [address] [phone] 07/27/2021 Office Visit Gastroenterology Lyssa Stout CRNP [address] [place] [address] [phone] 09/09/2021 Imaging Radiology Health Maintenance Due Date [...] of this encounter Implants Implanted Type Area Buddhist Monk Device Identifier Shelf Expiration Date Model / Serial / Lot Microtech Sure Clip Implanted:Qty: 2 on 06/03/2020 by Janis Hatch DO at OR [facility] Clip N/A: Colon 04/21/2022 ROCC-F-26-2 35-C-R / / [id number] documented as of this encounter Advance Directives Documents on File Type Date Recorded Patient Cylinder Batcher Expl anation Advance Directives and Living Will 04/29/2021 12:00 AM ADVANCE DIRECTIVE / LIVING WILL LIVING WILL AND HEALTH CARE POA Power of Supervisor Drawing 04/29/2021 12:00 AM TOM R OF [facility] [facility] POA Advanced 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
--- OUTSIDE RECORDS SUMMARY | 2023-05-10 20:17 | External Medical Summary | Summary of Care ---
Author Name Unknown Organization [place] [address] Care Team Providers Care Dispatcher Maintenance Name Role Phone Vanita Dunn MD Primary Care Provid er Reason for Referral * Evaluate & Treat - Unlimited Visits (Within 30 days (routine)) Status Reason Specialty Diagnoses / Procedures Referred By Contact Referred To Contact Pending Review Second Opinion Podiatry Diagnoses Diabetic foot (HCC) Brianne Pal PA-C [address] [place] [address] Question Answer Referral Priority Within 30 days (routine) Which condition are you referring this patient for? Diabetic foot care/pain Specific condition? Foot pain Electronically signed by Brianne Pal PA-C at * Evaluate & Treat - Unlimited Visits (Within 30 days (routine)) Status Reason Specialty Diagnoses / Procedures Referred By Contact Referred To Contact Pending Review Specialty Services Required Wound Care Diagnoses Open wound of right foot, initial encounter Brianne Pal PA-C [address] [place] [address] Question Answer Referral Priority Within 30 days (routine) Comments Assess for: Hx of wound healing problem and Lower Extremity Wound - diabetic with open wound on foot - please eval , treat and refer to appropriate dietetic aide to manage her foot wounds / pain and abnormality Electronically signed by Brianne Pal PA-C at * Evaluate & Treat - Unlimited Visits (Within 30 days (routine)) Status Reason Specialty Diagnoses / Procedures Referred By Contact Referred To Contact Pending Review Specialty Services Required Endocrinology/Holley bolism / Endocrinology Diagnoses DM type 2 with diabetic peripheral neuropathy (HCC) Brianne Pal PA-C [address] [place] [address] Question Answer Referral Priority Within 30 days (routine) For what condition is the patient being referred? Diabetes Mellitus For which diabetes condition are you referring? Type 2 Electronically signed by Brianne Pal PA-C at Reason for Visit * Reason Comments Acute Pt here c/o sore on right foot. Encounter Details Date Type Department Care Team Description 06/04/2021 Office Visit [facility] [address] [place] [address] Brianne Pal PA-C [address] [place] [address] DM type 2 with diabetic peripheral neuropathy (HCC)*; Open wound of right foot, initial encounter; Diabetic foot (HCC) Allergies Active Allergy Reactions Severity Noted Date Comments Adhesive Tape Itching 04/29/2020 Penicillins Rash 02/12/2008 Perflutren Protein A Microsph 2019 Definity-lower back pain documented as of this encounter (statuses as of 06/04/2021) Medications Medication Sig Dispensed Refills Start Date [...] 120 Vial 11 10/02/2019 Active nystatin (NYSTOP) 951646 UNIT/GM powder Apply topically to affected area [...] great toe 50 g 0 05/26/2020 Active Ipratropium-Albute rol 0.5-2.5 (3) MG/3ML Inhalation [...] 60 Each 3 07/27/2020 Active Dexcom G6 Application Support Consultant Device Use as directed. To test [...] Dx E11.9 1 Each 3 09/14/2020 Active Lidocaine-Prilocai ne 2.5-2.5 % External Cream (Emla)Indications: Iron deficiency anemia due to chronic blood loss,Pancytopenia (HCC) Apply topically to affected area as needed for Other (for port). APPLY TO SKIN OVER MEDIPORT & COVER 1HR PRIOR TO ACCESSING. 30 g 3 10/09/2020 Active OneTouch Verio In Vitro Strip (Glucose Blood) TESTING once daily 100 Strip 3 10/29/2020 Active OneTouch Delica Plus [id number] TESTING once daily 100 Each 3 10/29/2020 [...] Active Additional Information Patient taking differently: 2 Barton Nasal DAILY PRN, Congestion, Informant: Pharmacy, Reported on 02/04/2021 Escitalopram Oxalate 20 MG Oral Tablet (Lexapro)Indicatio [...] 04/29/2021 Active Nadolol 40 MG Oral Tablet (Corgard)Indicatio ns:HTN, goal below 140/90 Take 1 tablet daily. 90 Tab 1 05/11/2021 Active Oxybutynin Chloride 5 MG Oral Tablet (Ditropan) TAKE 1 TABLET BY MOUTH TWICE DAILY 180 Tab 1 05/13/2021 Active Ibuprofen 800 MG Oral Tablet (Motrin)Indication [...] 06/02/2021 Active Gabapentin 300 MG Oral Capsule (Neurontin)Indicat ions:DM type 2 with diabetic peripheral neuropathy (HCC),Diabetic foot (HCC) TAKE 1 CAPSULE BY MOUTH EVERY MORNING, 1 CAPSULE MIDDAY AND 2 CAPSULES IN THE EVENING. May take extra dose am and mid day if needed for pain - total of 6 a day max 360 Cap 1 06/04/2021 Active Gabapentin 300 MG Oral Capsule (Neurontin) TAKE 1 CAPSULE BY MOUTH EVERY MORNING, 1 CAPSULE MIDDAY AND 2 CAPSULES IN THE EVENING. 360 Cap 1 05/13/2021 Discontinue d(Refill) documented as of this encounter (statuses as of 06/04/2021) Active Problems Problem Noted Date Food insecurity [...] as of this encounter (statuses as of 06/04/2021) Resolved Problems Problem Noted Date Resolved Date [...] failure 04/08/2019 04/18/2019 Oxygen dependent 04/08/2019 04/18/2019 [facility] resident 04/08/2019 05/02/2019 Fall 04/04/2019 05/05/2020 Sprain [...] pain 01/24/2012 01/17/2017 Genetic Sleep Disorder Research Other*[id number] 05/13/2011 04/07/2016 Obstructive sleep apnea 01/18/2011 12/27/19 [...] as of this encounter (statuses as of 06/04/2021) Immunizations Name Administration Dates Next Due COVID-19 [...] Sign Reading Time Taken Comments Blood Pressure 128/80 06/04/2021 2:57 PM EDT Pulse 70 06/04/2021 2:57 PM EDT Temperature 36.8 C (98.2 F) 06/04/2021 2:57 PM ED T Respiratory Rate 20 06/04/2021 2:57 PM EDT Oxygen Saturation - - [...] Progress Notes * Brianne Pal PA-C - 06/04/2021 3:19 PM EDT Subjective Shaina Bustos is a 66 year old female that presents for Acute (Pt here c/o sore on right foot.) HPI: Here for sore foot. She cannot see the sore spot - it hurts a lot and she cannot put pressure on it. Going on at least a week. She has 2 spots on the back pf her heel that she can feel are bumps. The bottom of her foot is really sore as well. She had an ingrown nail done on the R great toe and was really not happy with how that went. It is feeling better but the doctor did not numb her up and she was not happy with his care. She wants to see endo at [facility]. She feels like her meds are all screwed up and her sister sees the doc there and she wants to see him too. Objective BP 128/80 | Pulse 70 | Temp 36.8 C (98.2 F) (Tympanic) | Resp 20 There is no height or weight on file to calculate BMI. BP Readings from Last 3 Encounters: 06/04/21 128/80 06/01/21 122/84 05/26/21 142/80 Wt Readings from Last 3 Encounters: 04/08/21 117.9 kg (260 lb) 04/03/21 126.1 kg (278 lb) 03/24/21 120.9 kg (266 lb 9.6 oz) Physical exam General: alert, healthy and no distress Head: Normocephalic, No masses, lesions, tenderness or abnormalities Heart: regular rate & rhythm, no gallops, S-1 normal and S-2 normal Lungs: chest symmetric with normal AP diameter, no chest deformities noted, no chest wall tenderness, lungs clear to auscultation Extremities: less than 2 second capillary refill, anatomy altered in her feet - similar to charcot Skin: skin color, texture, turgor are normal, dry thickened skin on the dorsum and plantar surface of both feet. R great toe, no evidence of infection, at the medial aspect of t Assessment and plan DM type 2 with diabetic peripheral neuropathy (HCC) (Primary) - ENDOCRINOLOGY REFERRAL OP - Gabapentin 300 MG Oral Capsule (Neurontin); TAKE 1 CAPSULE BY MOUTH EVERY MORNING, 1 CAPSULE MIDDAY AND 2 CAPSULES IN THE EVENING. May take extra dose am and mid day if needed for pain - total of 6a day max Open wound of right foot, initial encounter - WOUND CARE REFERRAL OP Diabetic foot (HCC) - PODIATRY REFERRAL OP - Gabapentin 300 MG Oral Capsule (Neurontin); TAKE 1 CAPSULE BY MOUTH EVERY MORNING, 1 CAPSULE MIDDAY AND 2 CAPSULES IN THE EVENING. May take extra dose am and mid day if needed for pain - total of 6a day max Check-out note: [facility] endocrinology at patients request. Cancel podiatry Schlorff - she did not care for him - willing to go to [facility] New endo Will let wound care determine what dietetic aide she should be seeing - prefers NOT to return to the current one she is seeing Total time today including reviewing chart before the visit, pertinent labs, imaging reports, face to face time, and documentation time was 37 minutes. The above was discussed and understanding was expressed. Brianne Pal PA-C documented in this encounter Nursing Notes * Michaelle Lindquist LPN - 06/04/2021 2:55 PM EDT Chief Complaint Patient presents with Acute Pt here c/o sore on right foot. documented in this encounter Plan of Treatment Upcoming Encounters Date Type Specialty Care Team Description 06/07/2021 Nutrition Services Gastroenterology Melissa Omalley, SAMANTHA [address] [place] [address] [phone] 06/14/2021 Office Visit Family Medicine Vanita Dunn MD [address], [place] [phone] 06/21/2021 Office Visit Pharmacy [facility] [address], [place] [phone] 06/24/2021 Cardiac Studies Cardiac Studies Gw, Bakery And Deli Sales Manager 1 [address] [place] [address] [phone] 07/02/2021 Immunization/Injection Hematology Oncolog y Nurse, Med [address] [place] [address] [phone] 07/06/2021 Office Visit Hematology Oncology Tono Sanchez MD [address] [place] [address] [phone] 07/22/2021 Office Visit Pulmonary Reynaldo Marquez MD [address] [place] [address] [phone] 07/26/2021 Office Visit Cardiology Quyen Canseco CRNP [address] [facility] [place] [address] [phone] 07/27/2021 Office Visit Gastroenterology Lyssa Stout CRNP [address] [facility] [place] [phone] 09/09/2021 Imaging Radiology Scheduled Referrals Name Type Priority Associated Diagnoses Order Schedule ENDOCRINOLOGY REFERRAL OP Referral Within 30 days (routine) DM type 2 with diabetic peripheral neuropathy (HCC) Ordered: 06/04/2021 WOUND CARE REFERRAL OP Referral Within 30 days (routine) Open wound of right foot, initial encounter Ordered: 06/04/2021 PODIATRY REFERRAL OP Referral Within 30 d ays (routine) Diabetic foot (HCC) Ordered: 06/04/2021 Health Maintenance Due Date Last Done Comments [...] of this encounter Implants Implanted Type Area Wire Lather Device Identifier Shelf Expiration Date Model / Serial / Lot Microtech Sure Clip Implanted:Qty: 2 on 06/03/2020 by Janis Hatch DO at OR [facility] Clip N/A: Colon 04/21/2022 [facility]-F-26-2 35-C-R / / [id number] documented as of this encounter Visit Diagnoses Diagnosis DM type 2 with diabetic peripheral neuropathy (HCC)- Primary Type II or unspecified type diabetes mellitus with neurological manifestations, not stated as uncontrolled Open wound of right foot, initial encounter Diabetic foot (HCC) Type II or unspecified type diabetes mellitus with other specified manifestations, not stated as uncontrolled documented in this encounter Advance Directives Documents on File Type Date Recorded Patient Disaster Recovery Coordinator Expl anation Advance Directives and Living Will 04/29/2021 12:00 AM ADVANCE DIRECTIVE / LIVING WILL LIVING WILL AND HEALTH CARE POA Power of Rn Document Improvement Specialist 04/29/2021 12:00 AM TOM R OF MANAGEMENT [facility] [facility] C[facility] POA Advanced 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 Relationship Healthcare Agent Relationshi p Communication Syed Fariasel Spouse Emergency Contact "
--- OUTSIDE RECORDS SUMMARY | 2023-05-10 20:17 | External Medical Summary ---
Author Name Unknown Address Unknown Organization [id number]:[facility]ORY [facility] [place] - [address] [place] [address] Laboratory Report Ordering Provider Test Date Status LIZZETHRADAMES 06/06/2021 17:46:00 Final Observation Date Value Abnormality Reference (Units ) Status BUN 06/06/2021 17:46:00 15 6-20 (mg/dL) Final Creatinine 06/06/2021 17:46:00 0.7 0.5-1.0 (mg/dL) Final Glomerular filtration rate/1.73 sq M.predicted [Volume Rate/Area] in Serum, Plasma or Blood by Creatinine-based formula (CKD-EPI) 06/06/2021 17:46:00 >90.0 >=60.0 (mL/min) Final Performing Location [facility]ORY [facility] - [address] [facility] [address]
--- OUTSIDE RECORDS SUMMARY | 2023-05-10 20:17 | External Medical Summary ---
Author Name Unknown Address Unknown Organization [id number]:[facility] [place] [address] [place] [address] Laboratory Report Ordering Provider Test Date Status RADAMES MOREAU 06/06/2021 17:46:00 Final Observation Date Value Abnormality Reference (Units ) Status WBC, Total 06/06/2021 17:46:00 2.96 Below low normal 4.00-10.80 (K/uL) Final RBC 06/06/2021 17:46:00 2.86 Below low normal 3.85-5.15 (M/uL) Final Hemoglobin 06/06/2021 17:46:00 8.6 Below low normal 12.0-15.3 (g/dL) Final HCT 06/06/2021 17:46:00 29.0 Below low normal 36.0-45.2 (%) Final MCV 06/06/2021 17:46:00 101.4 Above high normal 81.5-97.5 (fL) Final MCH 06/06/2021 17:46:00 30.1 27.0-34.0 (pg) Final MCHC 06/06/2021 17:46:00 29.7 Below low normal 32.0-36.0 (g/dL) Final RDW 06/06/2021 17:46:00 18.6 Above high normal 11.5-15.5 (%) Final MPV 06/06/2021 17:46:00 12.5 Above high normal 6.6-11.1 (fL) Final Nucleated erythrocytes/100 leukocytes [Ratio] in Blood by Automated count 06/06/2021 17:46:00 0 <=0 (/100 WBCs) Final Platelets 06/06/2021 17:46:00 71 Below low normal 140-400 (K/uL) Final Performing Location [facility] - [address] [place] [address]
--- OUTSIDE RECORDS SUMMARY | 2023-05-10 20:17 | External Medical Summary ---
Author Name Unknown Address Unknown Organization [id number]:[facility] [place] [address] [place] [address] Laboratory Report Ordering Provider Test Date Status RADAMES MOREAU 06/06/2021 17:46:00 Final Observation Date Value Abnormality Reference (Units ) Status Erythrocyte sedimentation rate by Photometric method 06/06/2021 17:46:00 70 Above high normal <30 (mm/hour) Final Performing Location [facility] - [address] [place] [address]
--- OUTSIDE RECORDS SUMMARY | 2023-05-10 20:17 | External Medical Summary ---
Author Name Unknown Address Unknown Organization [id number]:[facility] [place] [address] [facility] [address] Laboratory Report Ordering Provider Test Date Status RADAMES MOREAU 06/06/2021 17:46:00 Final Observation Date Value Abnormality Reference (Units ) Status SYNC LEUKOCYTES IN BLOOD BY AUTOMATED COUNT 06/06/2021 17:46:00 2.96 Below low normal 4.00-10.80 (K/uL) Final Segs 06/06/2021 17:46:00 58.2 40.0-75.0 (%) Final Lymphs % 06/06/2021 17:46:00 25.0 18.0-42.0 (%) Final Monos 06/06/2021 17:46:00 10.1 1.0-11.0 (%) Final Eosinophils 06/06/2021 17:46:00 5.4 0.0-6.0 (%) Final Basos 06/06/2021 17:46:00 1.0 0.0-2.0 (%) Final Immature Granulocyte, Percent 06/06/2021 17:46:00 0.3 0.0-2.0 (%) Final Absolute Segs 06/06/2021 17:46:00 1.72 Below low normal 1.80-7.70 (K/uL) Final Lymphs, absolute 06/06/2021 17:46:00 0.74 Below low normal 1.00-4.80 (K/ul) Final Monos, Abs 06/06/2021 17:46:00 0.30 0.00-1.10 (K/uL) Final Eos, Abs 06/06/2021 17:46:00 0.16 0.00-0.70 (K/uL) Final Basos, Abs 06/06/2021 17:46:00 0.03 0.00-0.20 (K/uL) Final Immature Granulocytes, Number 06/06/2021 17:46:00 0.01 0.00-0.20 (K/uL) Final Performing Location [facility] [place] [facility] [place] [address]
--- OUTSIDE RECORDS SUMMARY | 2023-05-10 20:18 | External Medical Summary | Summary of Care ---
Author Name Unknown [place] [address] Care Team Providers Care Signal Constructor Name Role Phone Vanita Dunn MD Primary Care Provid er Reason for Visit * Reason Comments Follow Up Encounter Details Date Type Department Care Team Description 06/03/2021 Telemedicine Palliative Medicine, [facility] [address] [place] [address] Esperanza Painter MD [address] [place] [address] Cirrhosis of liver without ascites, unspecified hepatic cirrhosis type (HCC)*; Palliative care encounter Allergies Active Allergy Reactions Severity Noted Date Comments Adhesive Tape Itching 04/29/2020 Penicillins Rash 02/12/2008 Perflutren Protein A Microsph 2019 Definity-lower back pain documented as of this encounter (statuses as of 06/03/2021) Medications Medication Sig Dispensed Refills Start Date [...] 120 Vial 11 10/02/2019 Active nystatin (NYSTOP) 500262 UNIT/GM powder Apply topically to affected area [...] 60 Each 3 07/27/2020 Active Dexcom G6 Monogram Maker Device Use as directed. To test [...] Strip 3 10/29/2020 Active OneTouch Delica Plus [id number] TESTING once daily 100 Each 3 10/29/2020 [...] Active Additional Information Patient taking differently: 2 [place] Nasal DAILY PRN, Congestion, Informant: Pharmacy, Reported on 02/04/2021 Escitalopram Oxalate 20 MG Oral Tablet (Lexapro)Indications [...] TWICE DAILY 180 Tab 1 05/13/2021 Active Gabapentin 300 MG Oral Capsule (Neurontin) TAKE 1 CAPSULE BY MOUTH EVERY MORNING, 1 CAPSULE MIDDAY AND 2 CAPSULES IN THE EVENING. 360 Cap 1 05/13/2021 Active Ibuprofen 800 MG Oral [...] at bedtime 45 mL 3 06/02/2021 Active documented as of this encounter (statuses as of 06/03/2021) Active Problems Problem Noted Date Food insecurity [...] breath) 01/30/2021 Uncontrolled type 2 diabetes mellitus [facility] hyperglycemia 07/15/2020 Esophagitis 07/06/2020 Esophageal [...] as of this encounter (statuses as of 06/03/2021) Resolved Problems Problem Noted Date Resolved Date [...] pain 01/24/2012 01/17/2017 Genetic Sleep Disorder Research Other*[id number] 05/13/2011 04/07/2016 Obstructive sleep apnea 01/18/2011 12/27/19 [...] as of this encounter (statuses as of 06/03/2021) Immunizations Name Administration Dates Next Due COVID-19 [...] as of this encounter Progress Notes * Esperanza Painter MD - 06/03/2021 1:36 PM EDT Palliative Medicine Outpatient Progress Note TELEPHONE VISIT [facility] Name: Shaina Bustos Date: 06/03/2021 After connecting to the patient via telephone, the patient was identified by name and date of . Patient was then informed that this was a telephone call only visit. The patient agreed to participate. Call started: 205 PM Call ended: 213PM Total call duration was 8 minutes. 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 Interval history: Reports things are fine. Things "have been hard", was in the ER with her blood sugar being very low then high. Going down to see brothers June 19. Needs a change a scenery. No caregiver at this time, home health also stopped. Hard on to be primary caregiver but they are unsure what else is available. Pain: occasional pain, but not too bad. Nausea: no Vomiting: no Confusion: no Somnolence: no Constipation: no Dyspnea: if lay flat, gets short of breath, so sleeps upright Mood: no Other: ROS: See HPI. All others negative. Past Medical History: Diagnosis Date Cerebral palsy [...] 09/26/2013 ICD-10 update of inactive term Past medical, family, and social history reviewed, no changes noted. Examination: No physical examination was performed as visit was telephonic. ASSESSMENT/PLAN: Shaina Bustos is a 66 year old female seen in follow-up for goals of care and pain and symptom management. 1. NG Cirrhosis - Follows with [facility] 2. Chronic constipation - Improved with new regimen, advised to continue 3. Frailty/high readmission rate - Needs extra support at home, but unclear what is available to her in her area Follow up PRN Please note: - This is an established patient evaluated in my specialty within the past three years: yes - There was no face to face medicine service provided by myself or my specialty in the past 7 days and a face to face encounter or telemedicine visit is NOT required within 24 hours or next availableappointment. Visit Disposition: Routine follow-up Esperanza Painter MD Palliative Medicine Physician [facility] [address] [place] [id number] Office: [phone] Contact via DinnDinn (under name Esperanza Smith), M-F during business hours. 06/03/2021 documented in this encounter Plan of Treatment Upcoming Encounters Date Type Specialty Care Team Description 06/07/2021 Nutrition Services Gastroenterology Melissa Omalley, RDN [address] [facility] [place] [address] [phone] 06/11/2021 Office Visit Family [facility] Carpio [facility] [address] [facility] [address] [phone] 06/14/2021 Office Visit Family Vanita Carpio [facility] [address] [facility] [address] [phone] 06/21/2021 Office Visit Pharmacy [facility] [address] [facility] [id number] 06/22/2021 Office Visit Podiatry Prakash Martino, SIRENA [address] [place] [address] 06/24/2021 Cardiac Studies Cardiac Studies Gw, Rehabilitation Technician 1 [address] [place] [address] [phone] 07/02/2021 Immunization/Injection Hematology Oncolog y Nurse, Med [address] [place] [address] [phone] 07/06/2021 Office Visit Hematology Oncology Tono Sanchez MD [address] [place], [place] [id number] 07/22/2021 Office Visit Pulmonary Reynaldo Marquez MD [address] [place], [place] [phone] 07/26/2021 Office Visit Cardiology [facility]en [facility]seco CRNP [address] [facility] [address] [phone] 07/27/2021 Office Visit Gastroenterology [facility]sa [facility]out [facility] [address] [facility] [address] [phone] 09/09/2021 Imaging Radiology Health Maintenance Due Date [...] of this encounter Implants Implanted Type Area Maple Sugar Maker Device Identifier Shelf Expiration Date Model / Serial / Lot Microtech Sure Clip Implanted:Qty: 2 on 06/03/2020 by Janis Hatch DO at OR [facility] Clip N/A: Colon 04/21/2022 [facility]-F-26-2 35-C-R / / [id number] documented as of this encounter Visit Diagnoses Diagnosis Cirrhosis of liver without ascites, unspecified hepatic cirrhosis type (HCC)- Primary Palliative care encounter Encounter for palliative care documented in this encounter Advance Directives Documents on File Type Date Recorded Patient Directional Driller Expl anation Advance Directives and Living Will 04/29/2021 12:00 AM ADVANCE DIRECTIVE / LIVING WILL LIVING WILL AND HEALTH CARE POA Power of Surgical Scrub Technologist 04/29/2021 12:00 AM TOM R OF SHUTTLE VENEERING SUPERVISOR HEALTH CARE POA Advanced 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 Agents on File Name Relationship Healthcare Agent Romainwv navya Communication Syed Bustos Spouse Emergency Contact
--- OUTSIDE RECORDS SUMMARY | 2023-05-10 20:19 | External Medical Summary ---
Author Name Unknown Address Unknown Organization : Laboratory Report Ordering Provider Test Date Status RITTER RIZWAN 06/01/2021 19:57:07 Final Observation Date Value Abnormality Reference (Units ) Status Glucose Point of Care 06/01/2021 19:57:07 279 Above high normal 70-120 (mg/dL) Final Performing Location
--- OUTSIDE RECORDS SUMMARY | 2023-05-10 20:19 | External Medical Summary ---
Author Name Unknown Address Unknown Organization K01:LABORATORY [facility] [place] - [address] [facility] [address] Laboratory Report Ordering Provider Test Date Status VAISHNAVIPOSEY 06/01/2021 17:10:00 Final Observation Date Value Abnormality Reference (Units ) Status Lactic Acid 06/01/2021 17:10:00 1.3 0.4-2.0 (mmol/L) Final Performing Location LAB[facility]ATORY [facility] - [address] [facility] [address]
--- OUTSIDE RECORDS SUMMARY | 2023-05-10 20:19 | External Medical Summary ---
Author Name Unknown Address Unknown Organization K01:[facility] [place] [address] [place] [address] Laboratory Report Ordering Provider Test Date Status OUSMANE BACK 06/01/2021 17:09:00 Final Observation Date Value Abnormality Reference (Units ) Status BUN 06/01/2021 17:09:00 12 6-20 (mg/dL) Final Creatinine 06/01/2021 17:09:00 0.6 0.5-1.0 (mg/dL) Final Glomerular filtration rate/1.73 sq M.predicted [Volume Rate/Area] in Serum, Plasma or Blood by Creatinine-based formula (CKD-EPI) 06/01/2021 17:09:00 >90.0 >=60.0 (mL/min) Final Performing Location [facility] [place] [address] [place] [address]
--- OUTSIDE RECORDS SUMMARY | 2023-05-10 20:19 | External Medical Summary ---
Author Name Unknown Address Unknown Organization : Laboratory Report Ordering Provider Test Date Status NO,UNKNOWN 06/01/2021 16:46:51 Final Observation Date Value Abnormality Reference (Units ) Status Glucose Point of Care 06/01/2021 16:46:51 348 Above high normal 70-120 (mg/dL) Final Performing Location
--- OUTSIDE RECORDS SUMMARY | 2023-05-10 20:19 | External Medical Summary ---
Author Name Unknown Address Unknown Organization K01:[facility] [place] [address] [place] [address] Laboratory Report Ordering Provider Test Date Status OUSMANE BACK 06/01/2021 17:09:00 Final Observation Date Value Abnormality Reference (Units ) Status WBC, Total 06/01/2021 17:09:00 3.18 Below low normal 4.00-10.80 (K/uL) Final RBC 06/01/2021 17:09:00 2.77 Below low normal 3.85-5.15 (M/uL) Final Hemoglobin 06/01/2021 17:09:00 8.6 Below low normal 12.0-15.3 (g/dL) Final HCT 06/01/2021 17:09:00 28.9 Below low normal 36.0-45.2 (%) Final MCV 06/01/2021 17:09:00 104.3 Above high normal 81.5-97.5 (fL) Final MCH 06/01/2021 17:09:00 31.0 27.0-34.0 (pg) Final MCHC 06/01/2021 17:09:00 29.8 Below low normal 32.0-36.0 (g/dL) Final RDW 06/01/2021 17:09:00 18.8 Above high normal 11.5-15.5 (%) Final MPV 06/01/2021 17:09:00 13.3 Above high normal 6.6-11.1 (fL) Final Nucleated erythrocytes/100 leukocytes [Ratio] in Blood by Automated count 06/01/2021 17:09:00 0 <=0 (/100 WBCs) Final Platelets 06/01/2021 17:09:00 80 Below low normal 140-400 (K/uL) Final Performing Location [facility] [place] [address] [place] [address]
--- OUTSIDE RECORDS SUMMARY | 2023-05-10 20:19 | External Medical Summary ---
Author Name Unknown Address Unknown Organization K01:[place] [facility] [place] [address] [facility] [address] Laboratory Report Ordering Provider Test Date Status OUSMANE BACK 06/01/2021 17:09:00 Final Observation Date Value Abnormality Reference (Units ) Status Osmolality 06/01/2021 17:09:00 306 Above high normal 2 78-305 (mOsm/kg) Final Performing Location [facility] - [address] [facility] [address]
--- OUTSIDE RECORDS SUMMARY | 2023-05-10 20:19 | External Medical Summary ---
Author Name Unknown Address Unknown Organization K01:LABORATORY [facility] [place] - [address] [place] [address] Laboratory Report Ordering Provider Test Date Status OUSMANE BACK 06/01/2021 17:09:00 Final Observation Date Value Abnormality Reference (Units ) Status Lipase 06/01/2021 17:09:00 29 13-60 (U/L ) Final Performing Location [facility] - [address] [place] [address]
--- OUTSIDE RECORDS SUMMARY | 2023-05-10 20:19 | External Medical Summary | Summary of Care ---
Author Name Unknown Organization [facility] [place] [address] Care Team Providers Care Certified Dietary Manager Name Role Phone Vanita Dunn MD Primary Care Provid er Reason for Visit * Reason Comments Dosage Adjustment In Person (Anticoag Cl inic) Diabetes Follow-Up Encounter Details Date Type Department Care Team Description 06/02/2021 Office Visit Pharmacy, [facility] [address] [place] [address] [facility] [address] [place] [address] [phone] Type 2 diabetes mellitus with hemoglobin A1c goal of less than 7.0% ([facility])* Allergies Active Allergy Reactions Severity Noted Date Comments Adhesive Tape Itching 04/29/2020 Penicillins Rash 02/12/2008 Perflutren Protein A Microsph 2019 Definity-lower back pain documented as of this encounter (statuses as of 06/02/2021) Medications Medication Sig Dispensed Refills Start Date [...] 120 Vial 11 10/02/2019 Active nystatin (NYSTOP) 900717 UNIT/GM powder Apply topically to affected area [...] Each 3 07/27/2020 Active Dexcom G6 Meat Processor Device Use as directed. To test blood [...] TO ACCESSING. 30 g 3 10/09/2020 Active MymCart Verio In Vitro Strip (Glucose Blood) TESTING once daily 100 Strip 3 10/29/2020 Active OneTouch Delica Plus [id number] TESTING once daily 100 Each 3 10/29/2020 [...] less than 7.0% ([facility]) Use to inject insulin four times daily; E11.42 400 Each 3 12/05/2020 Active Fluticasone Propionate 50 MCG/ACT Nasal Suspension (Flonase)Indicati ons:Sinus congestion USE 2 SPRAYS IN EACH NOSTRIL ONCE DAILY as directed 16 g 5 12/23/2020 Active Additional Information Patient taking differently: 2 [place] Nasal DAILY PRN, Congestion, Informant: Pharmacy, Reported [...] at bedtime 45 mL 3 06/02/2021 Active Lantus SoloStar 100 UNIT/ML Subcutaneous Solution Pen-injector (Insulin Glargine)Indicati ons:Type 2 diabetes mellitus with hemoglobin A1c goal of less than 7.0% (HCC) inject 28 units under skin at bedtime 30 mL 3 04/07/2021 1 Discontinued metFORMIN HCl ER 500 MG Oral Tablet Extended Release 24 Hour (Glucophage XR) Take one tablet by mouth with a meal 90 Tab 3 06/02/2021 1 Discontinued documented as of this encounter (statuses as of 06/02/2021) Active Problems Problem Noted Date Food insecurity [...] as of this encounter (statuses as of 06/02/2021) Resolved Problems Problem Noted Date Resolved Date [...] pain 01/24/2012 01/17/2017 Genetic Sleep Disorder Research Other*[id number] 05/13/2011 04/07/2016 Obstructive sleep apnea 01/18/2011 12/27/19 [...] as of this encounter (statuses as of 06/02/2021) Immunizations Name Administration Dates Next Due COVID-19 [...] this encounter Progress Notes * Indira Hudson, [facility] - 06/02/2021 2:08 PM EDT Images from [...] BG Readings Blood sugars uncontrolled. Patient at [facility] yesterday due to high BG and [...] daily- to reflect how taking RESTART: Metformin 1000mg, 1 tablet twice a day [...] weeks Next Office Visit: 06/21/2021 [facility] Clinical Pharmacist - [employer] Merchandiser Medication Therapy [facility] 06/02/2021, 2:08 PM documented in this encounter Plan of Treatment Upcoming Encounters Date Type Specialty Care Team Description 06/03/2021 Telemedicine Palliative Medicine Esperanza Painter MD [address] [place] [address] 06/07/2021 Nutrition Services Gastroenterology Melissa Omalley, RDN [address] [facility] [place] [address] [phone] 06/11/2021 Office Visit Family Medicine Vanita Dunn MD [address] [place] [address] [phone] 06/14/2021 Office Visit Family Vanita Carpio MD [address] [place] [address] 06/21/2021 Office Visit Pharmacy [facility], [facility] [address] [place] [address] 06/22/2021 Office Visit Podiatry Prakash Martino DPM [facility] [place] [address] [phone] 06/24/2021 Cardiac Studies Cardiac Studies Gw, Desktop Architect 1 [address] [place] [address] [phone] 07/02/2021 Immunization/Injection Hematology Oncolog y Nurse, Med 4 [address] [place] [address] [phone] 07/06/2021 Office Visit Hematology Oncology Tono Sanchez MD [address] [facility] [place] [address] [phone] 07/22/2021 Office Visit Pulmonary Reynaldo Marquez MD [address] [place] [address] [phone] 07/26/2021 Office Visit Cardiology Quyen Canseco CRNP [address] [facility] [place] [address] [phone] 07/27/2021 Office Visit Gastroenterology [facility] [address] [facility] [address] [phone] 09/09/2021 Imaging Radiology Health Maintenance Due Date [...] of this encounter Implants Implanted Type Area Nurse Unit Manager Device Identifier Shelf Expiration Date Model / Serial / Lot Microtech Sure Clip Implanted:Qty: 2 on 06/03/2020 by Janis Hatch DO at OR [facility] Clip N/A: Colon 04/21/2022 [facility]-F-26-2 35-C-R / / [id number] documented as of this encounter Visit Diagnoses Diagnosis Type 2 diabetes mellitus with hemoglobin A1c goal of less than 7.0% ([facility])- Primary documented in this encounter Advance Directives Documents on File Type Date Recorded Patient Scientific Director Expl anation Advance Directives and Living Will 04/29/2021 12:00 AM ADVANCE DIRECTIVE / LIVING WILL LIVING WILL AND HEALTH CARE POA Power of Administrative Tech 04/29/2021 12:00 AM TOM R OF NETWORK COORDINATOR HEALTH CARE POA Advanced 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 [facility] p Communication Syed Juli Spouse Emergency Contact
--- OUTSIDE RECORDS SUMMARY | 2023-05-10 20:19 | External Medical Summary ---
Author Name Unknown Address Unknown Organization K01:LABORATORY [facility] [place] [address] [facility] [facility] [place] [place] [address] Laboratory Report Ordering Provider Test Date Status OUSMANE BACK 06/01/2021 17:09:00 Final Observation Date Value Abnormality Reference (Units ) Status SYNC LEUKOCYTES IN BLOOD BY AUTOMATED COUNT 06/01/2021 17:09:00 3.18 Below low normal 4.00-10.80 (K/uL) Final Segs 06/01/2021 17:09:00 58.3 40.0-75.0 (%) Final Lymphs % 06/01/2021 17:09:00 22.6 18.0-42.0 (%) Final Monos 06/01/2021 17:09:00 13.5 Above high normal 1.0-11.0 (%) Final Eosinophils 06/01/2021 17:09:00 4.4 0.0-6.0 (%) Final Basos 06/01/2021 17:09:00 0.6 0.0-2.0 (%) Final Immature Granulocyte, Percent 06/01/2021 17:09:00 0.6 0.0-2.0 (%) Final Absolute Segs 06/01/2021 17:09:00 1.85 1.80-7.70 (K/uL) Final Lymphs, absolute 06/01/2021 17:09:00 0.72 Below low normal 1.00-4.80 (K/ul) Final Monos, Abs 06/01/2021 17:09:00 0.43 0.00-1.10 (K/uL) Final Eos, Abs 06/01/2021 17:09:00 0.14 0.00-0.70 (K/uL) Final Basos, Abs 06/01/2021 17:09:00 0.02 0.00-0.20 (K/uL) Final Immature Granulocytes, Number 06/01/2021 17:09:00 0.02 0.00-0.20 (K/uL) Final Performing Location LABORATORY [facility] - [facility] [place] [address]
--- OUTSIDE RECORDS SUMMARY | 2023-05-10 20:19 | External Medical Summary ---
Author Name Unknown Address Unknown Organization : Laboratory Report Ordering Provider Test Date Status RITTER RIZWAN 06/01/2021 21:20:18 Final Observation Date Value Abnormality Reference (Units ) Status Glucose Point of Care 06/01/2021 21:20:18 274 Above high normal 70-120 (mg/dL) Final Performing Location
--- OUTSIDE RECORDS SUMMARY | 2023-05-10 20:20 | External Medical Summary | Summary of Care ---
Author Name Unknown Organization [place] [address] Care Team Providers Care Seo Executive Name Role Phone Vanita Dunn MD Primary Care Provid er Reason for Visit * Reason Onset Date Comments Advice 05/28/2021 Encounter Details Date Type Department Care Team Description 05/28/2021 Telephone [facility] [address] [place] [address] Vanita Dunn MD [address] [place] [address] Advice Allergies Active Allergy Reactions Severity Noted Date Comments Adhesive Tape Itching 04/29/2020 Penicillins Rash 02/12/2008 Perflutren Protein A Microsph 2019 Definity-lower back pain documented as of this encounter (statuses as of 05/31/2021) Medications Medication Sig Dispensed Refills Start Date [...] 120 Vial 11 10/02/2019 Active nystatin (NYSTOP) 461131 UNIT/GM powder Apply topically to affected area [...] 60 Each 3 07/27/2020 Active Dexcom G6 Paper Pattern Inspector Device Use as directed. To test [...] Strip 3 10/29/2020 Active OneTouch Delica Plus [id number] TESTING once daily 100 Each 3 10/29/2020 [...] Active Additional Information Patient taking differently: 2 Parrish Nasal DAILY PRN, Congestion, Informant: Pharmacy, Reported [...] before meals. Sliding scale 0 03/24/2021 Active Lantus SoloStar 100 UNIT/ML Subcutaneous Solution Pen-injector (Insulin Glargine)Indicati ons:Type 2 diabetes mellitus with hemoglobin A1c goal of less than 7.0% (HCC) inject 28 units under skin at bedtime 30 mL 3 04/07/2021 Active Additional Information Patient taking differently: inject 32 units under skin at bedtime, Reported on 05/11/2021 Trulicity 4.5 MG/0.5ML Subcutaneous Solution Pen-injector (Dulaglutide)Connie [...] Docusate Sodium 100 MG Oral Capsule (Colace) Take 1 Cap by mouth daily. 68 Cap 0 04/29/2021 Discontinued documented as of this encounter (statuses as of 05/31/2021) Active Problems Problem Noted Date Food insecurity [...] 01/30/2021 Uncontrolled type 2 diabetes mellitus wi hyperglycemia 07/15/2020 Esophagitis 07/06/2020 Esophageal varices 07/06/2020 [...] as of this encounter (statuses as of 05/31/2021) Resolved Problems Problem Noted Date Resolved Date [...] failure 04/08/2019 04/18/2019 Oxygen dependent 04/08/2019 04/18/2019 correction resident 04/08/2019 05/02/2019 Fall 04/04/2019 05/05/2020 Sprain [...] pain 01/24/2012 01/17/2017 Genetic Sleep Disorder Research Other*[id number] 05/13/2011 04/07/2016 Obstructive sleep apnea 01/18/2011 12/27/19 [...] as of this encounter (statuses as of 05/31/2021) Immunizations Name Administration Dates Next Due COVID-19 [...] Telephone Encounter - Josselin Gaspar LPN - 05/31/2021 5:04 PM EDT Faxed to the number below. * Telephone Encounter - Janett Garcia OSA - 05/31/2021 12:55 PM EDT Please fax to this number at [facility] [phone]. * Telephone Encounter - Michaelle Lindquist LPN - 05/31/2021 11:05 AM EDT Pt aware that order has been refaxed. * Telephone Encounter - Zelda Lyles OSA - 05/31/2021 9:00 AM EDT Patient calling to have below order refaxed to [facility] [phone] * Telephone Encounter - Brianne Pal PA-C - 05/28/2021 2:43 PM EDT Noted Brianne Pal PA-C 05/28/2021 2:43 PM * Telephone Encounter - Jovana Lambert RN - 05/28/2021 2:27 PM EDT Faxed to [facility] [phone] Patient family aware raudel RX has been faxed * Telephone Encounter - Brianne Pal PA-C - 05/28/2021 2:04 PM EDT I can re-do it but when you put in hospital bed it only gives you 2 options Semi electric or semi electric with gel overlay I can pick other and then go from there but not sure if that will go through Ambulatory dysfunction (Primary) - DURABLE MEDICAL EQUIPMENT Brianne Pal PA-C 05/28/2021 2:07 PM * Telephone Encounter - Jovana Lambert RN - 05/28/2021 1:22 PM EDT Back in March you placed an order for Hospital bed Are you willing to change it om 04/05/2021 * Telephone Encounter - Tamara Enriquez OSA - 05/28/2021 11:18 AM EDT Pt calling in stating that the wrong bed was delivered to her home yesterday. It took almost two weeks to get the bed. States that it was to be fully electric. The only order for a bed was a semi-electric. Pt needs to have information sent to the supply company for a fully electric bed. Very difficult to hear the pt over the phone. Stated that she was frustrated that the paperwork wasnot handled the first time. Please have all necessary information sent to [facility] Home Oxygen and Medical Supplies if possible. Please advise. Thank you. [facility] fax: [phone] documented in this encounter Plan of Treatment Upcoming Encounters Date Type Specialty Care Team Description 06/02/2021 Office Visit Pharmacy [facility] [address] [facility] [place] [id number] 06/03/2021 Telemedicine Palliative Medicine Esperanza Painter MD [address] [place] [address] [phone] 06/07/2021 Nutrition Services Gastroenterology Melissa Omalley, SAMANTHA [address] [facility] [place] [address] [phone] 06/11/2021 Office Visit Podiatry Prakash Martino, DPM [address] [place] [address] 06/14/2021 Office Visit Family Medicine Vanita Dunn MD [address], [place] [address] 06/24/2021 Cardiac Studies Cardiac Studies Gw, Blind Hooker 1 [address] [facility] [place] [address] [phone] 07/02/2021 Immunization/Injection Hematology Oncolog y Nurse, Med 4 [address] [place] [address] [phone] 07/06/2021 Office Visit Hematology Oncology Tono Sanchez MD [address] [place] [address] [phone] 07/22/2021 Office Visit Pulmonary Reynaldo Marquez MD [address] [place] [address] [phone] 07/26/2021 Office Visit Cardiology [facility]yen [facility]seco CRNP [facility] [place] [address] [phone] 07/27/2021 Office Visit Gastroenterology Lyssa Stout CRNP [address] [facility] [place] [address] [phone] 09/09/2021 Imaging Radiology Health Maintenance Due Date [...] of this encounter Implants Implanted Type Area Case Worker Device Identifier Shelf Expiration Date Model / Serial / Lot Microtech Sure Clip Implanted:Qty: 2 on 06/03/2020 by Janis Hatch DO at OR [facility] Clip N/A: Colon 04/21/2022 [facility]-F-26-2 35-C-R / / [id number] documented as of this encounter Visit Diagnoses Diagnosis Ambulatory dysfunction- Primary documented in this encounter Advance Directives Documents on File Type Date Recorded Patient Human Resources Benefits Specialist Expl anation Advance Directives and Living Will 04/29/2021 12:00 AM ADVANCE DIRECTIVE / LIVING WILL LIVING WILL AND HEALTH CARE POA Power of International Marketing Manager 04/29/2021 12:00 AM TOM OF [facility] POA Advanced Directive service a kerri default [...]
--- OUTSIDE RECORDS SUMMARY | 2023-05-10 20:20 | External Medical Summary | Summary of Care ---
Author Name Unknown Organization [facility] Address [place] [address] Care Team Providers Care Pipe Line Inspector Name Role Phone Vanita Dunn MD Primary Care Provid er Reason for Visit * Reason Onset Date Comments Advice 05/26/2021 Encounter Details Date Type Department Care Team Description 05/26/2021 Telephone [facility] [address] [place] [address] Vanita Dunn MD [address] [place] [address] Advice Allergies Active Allergy Reactions Severity Noted Date Comments Adhesive Tape Itching 04/29/2020 Penicillins Rash 02/12/2008 Perflutren Protein A Microsph 2019 Definity-lower back pain documented as of this encounter (statuses as of 06/01/2021) Medications Medication Sig Dispensed Refills Start Date [...] 120 Vial 11 10/02/2019 Active nystatin (NYSTOP) 366531 UNIT/GM powder Apply topically to affected area [...] 60 Each 3 07/27/2020 Active Dexcom G6 Patient Care Coordinator Device Use as directed. To [...] Strip 3 10/29/2020 Active OneTouch Delica Plus [id number] TESTING once daily 100 Each 3 10/29/2020 [...] Active Additional Information Patient taking differently: 2 [place] Nasal DAILY PRN, Congestion, Informant: Pharmacy, Reported [...] 05/11/2021 Trulicity 4.5 MG/0.5ML Subcutaneous Solution Pen-injector (Dulaglutide)Indicat [...] as of this encounter (statuses as of 06/01/2021) Active Problems Problem Noted Date Food insecurity [...] as of this encounter (statuses as of 06/01/2021) Resolved Problems Problem Noted Date Resolved Date [...] pain 01/24/2012 01/17/2017 Genetic Sleep Disorder Research Other*[id number] 05/13/2011 04/07/2016 Obstructive sleep apnea 01/18/2011 12/27/19 [...] as of this encounter (statuses as of 06/01/2021) Immunizations Name Administration Dates Next Due COVID-19 mRNA, LNP-s, No Pre serve, 2-Dose Series (Moderna) 12/21/2020,11/23/2020 HEP A - Hepatitis A (Adult > 18 yrs) 09/24/2018, 03/26/2018 Hepatitis B, 20+ yrs 09/24/2018,04/23/2018,03/26 Pneumococcal Conjugate Vacc, 13 Valent (Prevnar) 05/02/2019 Pneumococcal Polysaccharide PPV23 (Pneumovax) 06/01/2010 Seasonal Influenza, Quadriva lent, No Preserve, 6 Mons & Above, IM 06/01/2020,06/05/2019,05/16/2018,10/3 06/05/2020 Seasonal Influenza, Quadriva lent, No Preserve, IM [...] questions, you may need to ask chas Hendrix, UMA * Telephone Encounter - Vanita Dunn MD - 05/31/2021 5:18 PM EDT How do I enroll with [facility]? * Telephone Encounter - Yanira Graves LPN - 05/26/2021 3:43 PM EDT Rajwinder states that she received a call from [facility] (phone # [phone]) tell her thatthey could not process patients [...] Care Team Description 06/02/2021 Office Visit Pharmacy [facility] [address] [address] [phone] 06/03/2021 Telemedicine Palliative Medicine Esperanza Painter MD [address] [place] [address] 06/07/2021 Nutrition Services Gastroenterology Melissa Omalley, LUIS [place] [address] [place] [address] [phone] 06/14/2021 Office Visit Family Medicine Vanita Dunn MD [address] [place] [address] [phone] 06/22/2021 Office Visit Podiatry Prakash Martino, SIRENA [address] [place] [address] 06/24/2021 Cardiac Studies Cardiac Studies Gw, Edge Kitter [address] [place] [address] [phone] 07/02/2021 Immunization/Injection Hematology Oncolog y Nurse, Med 4 [address] [place] [address] [phone] 07/06/2021 Office Visit Hematology Oncology Tono Sanchez MD [address] [place] [address] [phone] 07/22/2021 Office Visit Pulmonary Reynaldo Marquez MD [address] [place], [place] [address] 07/26/2021 Office Visit Cardiology Quyen Canseco CRNP [address] [facility] [place] [address] [phone] 07/27/2021 Office Visit Gastroenterology Lyssa [facility]out CRNP [address] [facility] [place] [address] [phone] 09/09/2021 Imaging Radiology Health Maintenance Due Date [...] of this encounter Implants Implanted Type Area Podiatric Assistant Device Identifier Shelf Expiration Date Model / Serial / Lot Microtech Sure Clip Implanted:Qty: 2 on 06/03/2020 by Janis Hatch DO at OR [facility] Clip N/A: Colon 04/21/2022 [facility]-F-26-2 35-C-R / / [id number] documented as of this encounter Advance Directives Documents on File Type Date Recorded Patient Bar Assistant Expl anation Advance Directives and Living Will 04/29/2021 12:00 AM ADVANCE DIRECTIVE / LIVING WILL LIVING WILL AND HEALTH CARE POA Power of Confectionery Laboratory Manager 04/29/2021 12:00 AM TOM R OF PRODUCTION COST ESTIMATOR HEALTH CARE POA Advanced 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
--- OUTSIDE RECORDS SUMMARY | 2023-05-10 20:20 | External Medical Summary | Summary of Care ---
Author Name Unknown Organization [facility] Address [place] [address] Care Team Providers Care Secretarial Stenographer Name Role Phone Vanita Dunn MD Primary Care Provid er Reason for Visit * Reason Onset Date Comments Advice 05/26/2021 Encounter Details Date Type Department Care Team Description 05/26/2021 Telephone [facility] [address] [place] [address] Vanita Dunn MD [address] [place] [address] Advice Allergies Active Allergy Reactions [...] 120 Vial 11 10/02/2019 Active nystatin (NYSTOP) 293845 UNIT/GM powder Apply topically to affected area [...] 60 Each 3 07/27/2020 Active Dexcom G6 Questioned Documents Examiner Device Use as directed. To test [...] Strip 3 10/29/2020 Active OneTouch Delica Plus [id number] TESTING once daily 100 Each 3 10/29/2020 [...] Active Additional Information Patient taking differently: 2 [place]fl[place] Nasal DAILY PRN, Congestion, Informant: Pharmacy, Reported [...] pain 01/24/2012 01/17/2017 Genetic Sleep Disorder Research Other*[id number] 05/13/2011 04/07/2016 Obstructive sleep apnea 01/18/2011 12/27/19 [...] call from [facility] (phone # [phone]) tell her thatthey could not process patients [...] Care Team Description 06/02/2021 Office Visit Pharmacy [facility] [address] [place] [address] [phone] 06/03/2021 Telemedicine Palliative Medicine Esperanza Painter MD [address] [place] [address] 06/07/2021 Nutrition Services Gastroenterology Melissa Omalley, SAMANTHA [address] [facility] [place] [address] [phone] 06/11/2021 Office Visit Podiatry Schlorff, Prakash Lam, DPM [address] [place] [address] 06/14/2021 Office Visit Family Medicine Vanita Dunn MD [address] [place] [address] [phone] 06/24/2021 Cardiac Studies Cardiac Studies Gw, Inspector Machine Cut Glass 1 [address] [facility] [place] [address] [phone] 07/02/2021 Immunization/Injection Hematology Oncolog y Nurse, Med 4 [address] [place] [address] [phone] 07/06/2021 Office Visit Hematology Oncology Tono Sanchez MD [address] [place] [address] [phone] 07/22/2021 Office Visit Pulmonary AlmaReynaldo MD [address] [place], [place] [address] 07/26/2021 Office Visit Cardiology Quyen Canseco CRNP [address] [facility] [place] [address] 07/27/2021 Office Visit Gastroenterology Lyssa Stout CRNP [address] [facility] [place] [address] 09/09/2021 Imaging Radiology Health Maintenance Due Date [...] of this encounter Implants Implanted Type Area Malware Analyst Device Identifier Shelf Expiration Date Model / Serial / Lot Microtech Sure Clip Implanted:Qty: 2 on 06/03/2020 by Janis Hatch DO at OR [facility] Clip N/A: Colon 04/21/2022 [facility]-F-26-2 35-C-R / / [id number] documented as of this encounter Advance Directives Documents on File Type Date Recorded Patient Industrial Gas Servicer Helper Expl anation Advance Directives and Living Will 04/29/2021 12:00 AM ADVANCE DIRECTIVE / LIVING WILL LIVING WILL AND HEALTH CARE POA Power of Clinical Trial Assistant 04/29/2021 12:00 AM TOM R OF SUPERVISOR CLEANING AND ANNEALING HEALTH CARE POA Advanced 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
--- OUTSIDE RECORDS SUMMARY | 2023-05-10 20:21 | External Medical Summary | Summary of Care ---
Author Name Unknown Organization [place] [address] Care Team Providers Care Rn Residential Name Role Phone Vanita Dunn MD Primary Care Provid er Reason for Visit * Reason Onset Date Comments Advice 05/28/2021 Encounter Details Date Type Department Care Team Description 05/28/2021 Telephone [facility] [address] [place] [address] Vanita Dunn MD [address] [place] [address] Advice Allergies Active Allergy Reactions [...] 120 Vial 11 10/02/2019 Active nystatin (NYSTOP) 636736 UNIT/GM powder Apply topically to affected area [...] 60 Each 3 07/27/2020 Active Dexcom G6 Decommissioning Well Site Manager Device Use as directed. To test [...] Strip 3 10/29/2020 Active OneTouch Delica Plus Gsicup89F TESTING once daily 100 Each 3 10/29/2020 [...] Active Additional Information Patient taking differently: 2 [place] Nasal DAILY PRN, Congestion, Informant: Pharmacy, Reported [...] pain 01/24/2012 01/17/2017 Genetic Sleep Disorder Research Other*[id number] 05/13/2011 04/07/2016 Obstructive sleep apnea 01/18/2011 12/27/19 [...] Miscellaneous Notes * Telephone Encounter - Janett Garcia OSA - 05/31/2021 12:55 PM EDT Please fax to this number at [facility] [phone]. * Telephone Encounter - Michaelle Lindquist LPN - 05/31/2021 11:05 AM EDT Pt aware that order has been refaxed. * Telephone Encounter - Zelda Lyles OSA - 05/31/2021 9:00 AM EDT Patient calling to have below order refaxed to [facility] [phone] * Telephone Encounter - Brianne Pal PA-C - 05/28/2021 2:43 PM EDT Noted Brianne Pal PA-C 05/28/2021 2:43 PM * Telephone Encounter - Jovana Lambert RN - 05/28/2021 2:27 PM EDT Faxed to [facility] [phone] Patient family aware raudel RX has been [...] Please have all necessary information sent to [facility] Home Oxygen and Medical Supplies if possible. Please advise. Thank you. [facility] fax: [phone] documented in this encounter Plan of Treatment Upcoming Encounters Date Type Specialty Care Team Description 06/02/2021 Office Visit Pharmacy [facility] [address] [place], [place] [phone] 06/03/2021 Telemedicine Palliative Medicine Esperanza Painter MD [address] [place] [address] 06/07/2021 Nutrition Services Gastroenterology Melissa Omalley, SAMANTHA [address] [facility] [place] [address] [phone] 06/11/2021 Office Visit Podiatry Prakash Martino, DPM [address] [place] [address] 06/14/2021 Office Visit Family Medicine Vanita Dunn MD [address] [place] [address] [phone] 06/24/2021 Cardiac Studies Cardiac Studies Gw, Advertising Sales Consultant [address] [place] [address] [phone] 07/02/2021 Immunization/Injection Hematology Oncolog y Nurse, Med 4 [address] [place] [address] [phone] 07/06/2021 Office Visit Hematology Oncology Tono Sanchez MD [address] [place] [address] [phone] 07/22/2021 Office Visit Pulmonary AlmaReynaldo MD [address] [place], [place] [address] 07/26/2021 Office Visit Cardiology Quyen Canseco CRNP [address] [place] [address] 07/27/2021 Office Visit Gastroenterology Lyssa Stout CRNP [address] [place] [address] 09/09/2021 Imaging Radiology Health Maintenance Due [...] of this encounter Implants Implanted Type Area Extruding Department Supervisor Device Identifier Shelf Expiration Date Model / Serial / Lot Microtech Sure Clip Implanted:Qty: 2 on 06/03/2020 by Janis Hatch DO at OR [facility] Clip N/A: Colon 04/21/2022 [facility]-F-26-2 35-C-R / / [id number] documented as of this encounter Visit Diagnoses Diagnosis Ambulatory dysfunction- Primary documented in this encounter Advance Directives Documents on File Type Date Recorded Patient Jitney Driver Expl anation Advance Directives and Living Will 04/29/2021 12:00 AM ADVANCE DIRECTIVE / LIVING WILL LIVING WILL AND HEALTH CARE POA Power of Microbiology Director 04/29/2021 12:00 AM TOM R OF STUDIO ASSOCIATE HEALTH CARE POA Advanced 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 Agents on File Name Relationship Healthcare Agent Romainms navya Communication Syed Bustos Spouse Emergency Contact
--- OUTSIDE RECORDS SUMMARY | 2023-05-10 20:21 | External Medical Summary | Summary of Care ---
Author Name Unknown Organization [facility] Address [place] [address] Care Team Providers Care Kindergartner Name Role Phone Vanita Dunn MD Primary Care Provid er Reason for Visit * Reason Onset Date Comments Order Request 05/10/2021 Advice 05/10/2021 Bed was ordered incorrectly Encounter Details Date Type Department Care Team Description 05/10/[address] [facility] [address] [place] [address] Vanita Dunn MD [address] [place] [address] Order Request; Advice (Bed was ordered inc... Allergies Active Allergy Reactions Severity Noted Date [...] 120 Vial 11 10/02/2019 Active nystatin (NYSTOP) 979438 UNIT/GM powder Apply topically to affected area [...] Each 3 07/27/2020 Active Dexcom G6 Director Enterprise Sales Device Use as directed. To test blood [...] TO ACCESSING. 30 g 3 10/09/2020 Active Picsel Technologiesuch Verio In Vitro Strip (Glucose Blood) TESTING once daily 100 Strip 3 10/29/2020 Active OneTouch Delica Plus [id number] TESTING once daily 100 Each 3 10/29/2020 [...] of less than 7.0% ([facility]) Use to inject insulin four times daily; E11.42 400 Each 3 12/05/2020 Active Fluticasone Propionate 50 MCG/ACT Nasal Suspension (Flonase)Indicati ons:Sinus congestion USE 2 SPRAYS IN EACH NOSTRIL ONCE DAILY as directed 16 g 5 12/23/2020 Active Additional Information Patient taking differently: 2 [place] Nasal DAILY PRN, Congestion, Informant: Pharmacy, Reported [...] mouth daily. 90 Tab 0 04/29/2021 Active Oxybutynin Chloride 5 MG Oral Tablet (Ditropan) TAKE 1 TABLET BY MOUTH TWICE DAILY 60 Tab 5 11/02/2020 1 Discontinued Gabapentin 300 MG Oral Capsule (Neurontin) TAKE 1 CAPSULE BY MOUTH EVERY MORNING, 1 CAPSULE MIDDAY AND 2 CAPSULES IN THE EVENING 180 Cap 5 11/02/2020 1 Discontinued Lactulose 20 GM/30ML Oral Solution (Constulose) Take 67.5 mL by mouth 3 times a day. Titrate to have 3 to 4 bowel movement every day. 2700 mL 2 03/29/2021 1 Discontinued Docusate Sodium 100 MG Oral Capsule (Colace) Take 1 Cap by mouth daily. 68 Cap 0 04/29/2021 1 Discontinued documented as of this encounter [...] pain 01/24/2012 01/17/2017 Genetic Sleep Disorder Research Other*[id number] 05/13/2011 04/07/2016 Obstructive sleep apnea 01/18/2011 12/27/19 [...] Encounter - Michaelle Lindquist LPN - 05/31/2021 12:01 PM EDT Please see other encounter. * Telephone Encounter - Jovana Lambert RN - 05/27/2021 3:36 PM EDT Spoke to patient The wrong bed was delivered by [facility] [phone] [facility] Aware will call us back The wrong bed was ordered She will check on this And call us back They want fully electric The order was done 04/05/21 * Telephone Encounter - Cassie Hoff OSA - 05/27/2021 1:15 PM EDT Pt said that she got bed delivered today 05/27/2021 and she says that it is not the correct bed Pt says that it needs to be fully electric so that it goes up and down , Pt has severe back pain and needs this bed to be correct Pls call Pt [phone] * Telephone Encounter - Michaelle Lindquist LPN - 05/12/2021 1:55 PM EDT Spoke with pt she states she has to talk to her patient case coordinator from [facility] "[facility]". Fax # was given so [facility]ce could fax information of where pt's has gotten her bed from to Dr Dunn * Telephone Encounter - Connie Arguello RN - 05/12/2021 7:38 AM EDT Case management is no longer following this patient, will route request to nurse codi Arguello RN * Telephone Encounter - Vanita Dunn MD - 05/11/2021 5:18 PM EDT Appreciate your assistance with this bed order, Frida RODRIGUEZ * Telephone Encounter - Janett Garcia OSA - 05/10/2021 8:40 AM EDT An order was requested for this patient. Name of Requesting Provider: patient Order Requested: new bed Diagnosis/Reason for Request: bed broke (won't go up or down and uncomfortable) Does the order need to be faxed somewhere? If so, where?: unsure Fax Number, if applicable: Call Back Number: [phone] If the caller is not a current [...] Care Team Description 06/02/2021 Office Visit Pharmacy [facility] [address] [place] [address] [phone] 06/03/2021 Telemedicine Palliative Medicine Esperanza Painter MD [address] [place] [address] [phone] 06/07/2021 Nutrition Services Gastroenterology Melissa Omalley RDN [address] [facility] [address] [phone] 06/11/2021 Office Visit Podiatry Prakash Martino DPM [facility] [place] [address] 06/14/2021 Office Visit Family Medicine Vanita Dunn MD [address], [place] [id number] 06/24/2021 Cardiac Studies Cardiac Studies Gw, Engraver Optical Frames 1 132 [place] [address] 07/02/2021 Immunization/Injection Hematology Oncolog y Nurse, Med 4 [address] [place] [address] [phone] 07/06/2021 Office Visit Hematology Oncology Tono Sanchez MD 200 [facility], [place] [address] 07/22/2021 Office Visit Pulmonary [place], Reynaldo Lambert MD [address] [place], [place] [address] 07/26/2021 Office Visit Cardiology [facility]yen Canseco CRNP 132 [facility] [address] 07/27/2021 Office Visit Gastroenterology Lyssa Stout CRNP [address] [facility] [place] [address] 09/09/2021 Imaging Radiology Health Maintenance Due [...] of this encounter Implants Implanted Type Area Stone Carver Device Identifier Shelf Expiration Date Model / Serial / Lot Microtech Sure Clip Implanted:Qty: 2 on 06/03/2020 by Janis Hatch DO at OR [facility] Clip N/A: Colon 04/21/2022 [facility]-F-26-2 35-C-R / / [id number] documented as of this encounter Advance Directives Documents on File Type Date Recorded Patient Director Of Music Therapy Expl anation Advance Directives and Living Will 04/29/2021 12:00 AM ADVANCE DIRECTIVE / LIVING WILL LIVING WILL AND HEALTH CARE POA Power of Physical Therapy Nurse 04/29/2021 12:00 AM TOM R OF SMALL KICK PRESS OPERATOR HEALTH CARE POA Advanced Directive service [...]
--- OUTSIDE RECORDS SUMMARY | 2023-05-10 20:21 | External Medical Summary | Summary of Care ---
Author Name Unknown Organization [place] [address] Care Team Providers Care Salesperson Trailers [employer] Motor [employer] Name Role Phone Vanita Dunn MD Primary Care Provid er Reason for Visit * Reason Onset Date Comments Advice 05/28/2021 Encounter Details Date Type Department Care Team Description 05/28/2021 Telephone [facility] [address] [place] [address] Vanita Dunn MD [address] [place] [address] Advice Allergies Active Allergy Reactions [...] 120 Vial 11 10/02/2019 Active nystatin (NYSTOP) 836188 UNIT/GM powder Apply topically to affected area [...] Each 3 07/27/2020 Active Dexcom G6 Senior Office Support Assistant Sosa Device Use as directed. To test blood [...] Strip 3 10/29/2020 Active OneTouch Delica Plus [id number] TESTING once daily 100 Each 3 10/29/2020 [...] Active Additional Information Patient taking differently: 2 [place] Nasal DAILY PRN, Congestion, Informant: Pharmacy, Reported [...] pain 01/24/2012 01/17/2017 Genetic Sleep Disorder Research Other*[id number] 05/13/2011 04/07/2016 Obstructive sleep apnea 01/18/2011 12/27/19 [...] EDT Please fax to this number at [facility] [phone]. * Telephone Encounter - Michaelle Lindquist LPN - 05/31/2021 11:05 AM EDT Pt aware that order has been refaxed. * Telephone Encounter - Zelda Lyles OSA - 05/31/2021 9:00 AM EDT Patient calling to have below order refaxed to [facility] [phone] * Telephone Encounter - Brianne Pal PA-C - 05/28/2021 2:43 PM EDT Noted Brianne Pal PA-C 05/28/2021 2:43 PM * Telephone Encounter - Jovana Lambert RN - 05/28/2021 2:27 PM EDT Faxed to [facility] [phone] Patient family aware raudel RX has been [...] Please have all necessary information sent to [facility] Home Oxygen and Medical Supplies if possible. Please advise. Thank you. [facility] fax: [phone] documented in this encounter Plan of Treatment Upcoming Encounters Date Type Specialty Care Team Description 06/02/2021 Office Visit Pharmacy [facility] [address] [place], [place] [phone] 06/03/2021 Telemedicine Palliative Medicine Esperanza Painter MD [address] [place] [address] 06/07/2021 Nutrition Services Gastroenterology Melissa Omalley, SAMANTHA 132 [facility] [place] [address] [phone] 06/11/2021 Office Visit Podiatry Prakash Martino, DPM [address] [place] [address] 06/14/2021 Office Visit Family Medicine Vanita Dunn MD [address] [place] [address] [phone] 06/24/2021 Cardiac Studies Cardiac Studies Gw, Ship Engines Operating Engineer 1 [address] [place] [address] [phone] 07/02/2021 Immunization/Injection Hematology Oncolog y Nurse, Med 4 200 [facility] [place] [address] [phone] 07/06/2021 Office Visit Hematology Oncology Tono Sanchez MD [address] [place] [address] [phone] 07/22/2021 Office Visit Pulmonary AlmaReynaldo MD [address], [place] [address] 07/26/2021 Office Visit Cardiology Quyen Canseco CRNP [...] of this encounter Implants Implanted Type Area Catheterization Laboratory Technician Device Identifier Shelf Expiration Date Model / Serial / Lot Microtech Sure Clip Implanted:Qty: 2 on 06/03/2020 by Janis Hatch DO at OR [facility] Clip N/A: Colon 04/21/2022 [facility]-F-26-2 35-C-R / / [id number] documented as of this encounter Visit Diagnoses Diagnosis Ambulatory dysfunction- Primary documented in this encounter Advance Directives Documents on File Type Date Recorded Patient Theatre Manager Expl anation Advance Directives and Living Will 04/29/2021 12:00 AM ADVANCE DIRECTIVE / LIVING WILL LIVING WILL AND HEALTH CARE POA Power of Mouse Breeder 04/29/2021 12:00 AM TOM R OF NITRATE OPERATOR HEALTH CARE POA Advanced Directive service [...] Agents on File Name Relationship Healthcare Agent Romainut navya Communication Syed Bustos Spouse Emergency Contact
--- OUTSIDE RECORDS SUMMARY | 2023-05-10 20:21 | External Medical Summary | Summary of Care ---
Author Name Unknown Organization [place] [address] Care Team Providers Care Tax Compliance Representative Name Role Phone Vanita Dunn MD Primary Care Provid er Reason for Visit * Reason Onset Date Comments Advice 05/28/2021 Encounter Details Date Type Department Care Team Description 05/28/2021 Telephone [facility] [address] [place] [address] Vanita Dunn MD [address] [place] [address] Advice Allergies Active Allergy Reactions [...] 120 Vial 11 10/02/2019 Active nystatin (NYSTOP) 158482 UNIT/GM powder Apply topically to affected area [...] 60 Each 3 07/27/2020 Active Dexcom G6 Capacity Planning Analyst Device Use as directed. 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 04/18/2019 [facility] resident 04/08/2019 05/02/2019 Fall 04/04/2019 05/05/2020 Sprain [...] pain 01/24/2012 01/17/2017 Genetic Sleep Disorder Research Other*[id number] 05/13/2011 04/07/2016 Obstructive sleep apnea 01/18/2011 12/27/19 [...] calling to have below order refaxed to [facility] [phone] * Telephone Encounter - Brianne Pal PA-C - 05/28/2021 2:43 PM EDT Noted Brianne Pal PA-C 05/28/2021 2:43 PM * Telephone Encounter - Jovana Lambert RN - 05/28/2021 2:27 PM EDT Faxed to [facility] [phone] Patient family aware raudel RX has been [...] Please have all necessary information sent to [facility] Home Oxygen and Medical Supplies if possible. Please advise. Thank you. [facility] fax: [phone] documented in this encounter Plan of Treatment Upcoming Encounters Date Type Specialty Care Team Description 06/02/2021 Office Visit Pharmacy [facility] [address] [place], [place] [id number] 06/03/2021 Telemedicine Palliative Medicine Esperanza Painter MD [address] [place] [address] 06/07/2021 Nutrition Services Gastroenterology Melissa Omalley, SAMANTHA 132 [facility] [place] [address] [phone] 06/11/2021 Office Visit Podiatry Prakash Martino DPM [address] [place] [address] [phone] 06/14/2021 Office Visit Family Medicine Vanita Dunn MD [address] [place], [place] [phone] 06/24/2021 Cardiac Studies Cardiac Studies Gw, Turf Farm Worker 1 [address] [place] [address] [phone] 07/02/2021 Immunization/Injection Hematology Oncolog y Nurse, Med 4 200 [facility] [place] [address] [phone] 07/06/2021 Office Visit Hematology Oncology Tono Sanchez MD 200 [facility] [place] [address] [phone] 07/22/2021 Office Visit Pulmonary AlmaReynaldo MD [address] [place] [address] 07/26/2021 Office Visit Cardiology Quyen Cnaseco CRNP [address] [place] [address] [phone] 07/27/2021 Office Visit Gastroenterology Lyssa Stout CRNP [facility] [place] [address] [phone] 09/09/2021 Imaging Radiology Health Maintenance Due Date [...] of this encounter Implants Implanted Type Area Director Of Estate Device Identifier Shelf Expiration Date Model / Serial / Lot Microtech Sure Clip Implanted:Qty: 2 on 06/03/2020 by Janis Hatch DO at OR [facility] Clip N/A: Colon 04/21/2022 [facility]-F-26-2 35-C-R / / [id number] documented as of this encounter Visit Diagnoses Diagnosis Ambulatory dysfunction- Primary documented in this encounter Advance Directives Documents on File Type Date Recorded Patient Legal Billing Coordinator Expl anation Advance Directives and Living Will 04/29/2021 12:00 AM ADVANCE DIRECTIVE / LIVING WILL LIVING WILL AND HEALTH CARE POA Power of Poker Room Manager 04/29/2021 12:00 AM TOM R OF EMERGENCY SERVICES PROFESSIONAL HEALTH CARE POA Advanced 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 Agents on File Name Relationship Healthcare Agent [facility] Communication Syed Fariasel Spouse Emergency Contact
--- OUTSIDE RECORDS SUMMARY | 2023-05-10 20:22 | External Medical Summary | Summary of Care ---
Author Name Unknown Organization [place] [address] Care Team Providers Care Cleaner Furniture Name Role Phone Vanita Dunn MD Primary Care Provid er Reason for Visit * Reason Onset Date Comments Advice 05/28/2021 Encounter Details Date Type Department Care Team Description 05/28/2021 Telephone [facility] [address] [place] [address] Vanita Dunn MD [address] [place] [address] Advice Allergies Active Allergy Reactions [...] 120 Vial 11 10/02/2019 Active nystatin (NYSTOP) 679948 UNIT/GM powder Apply topically to affected area [...] 60 Each 3 07/27/2020 Active Dexcom G6 Lunch Counter Manager Device Use as directed. To test [...] Strip 3 10/29/2020 Active OneTouch Delica Plus [id number] TESTING once daily 100 Each 3 10/29/2020 [...] Active Additional Information Patient taking differently: 2 [place] Nasal DAILY PRN, Congestion, Informant: Pharmacy, Reported [...] pain 01/24/2012 01/17/2017 Genetic Sleep Disorder Research Other*[id number] 05/13/2011 04/07/2016 Obstructive sleep apnea 01/18/2011 12/27/19 [...] encounter Miscellaneous Notes * Telephone Encounter - Zelda Lyles OSA - 05/31/2021 9:00 AM EDT Patient calling to have below order refaxed to [facility] [phone] * Telephone Encounter - Brianne Pal PA-C - 05/28/2021 2:43 PM EDT Noted Brianne Pal PA-C 05/28/2021 2:43 PM * Telephone Encounter - Jovana Lambert RN - 05/28/2021 2:27 PM EDT Faxed to [facility] [phone] Patient family aware raudel RX has been [...] Please have all necessary information sent to [facility] Home Oxygen and Medical Supplies if possible. Please advise. Thank you. [facility] fax: [phone] documented in this encounter Plan of Treatment Upcoming Encounters Date Type Specialty Care Team Description 06/02/2021 Office Visit Pharmacy [facility] [address], [place] [phone] 06/03/2021 Telemedicine Palliative Medicine Esperanza Painter MD [address] [place] [address] 06/07/2021 Nutrition Services Gastroenterology Melissa Omalley, RDN [address] [place] [address] [phone] 06/11/2021 Office Visit Podiatry Prakash Martino DPM [address] [place] [address] [phone] 06/14/2021 Office Visit Family Medicine Vanita Dunn MD [address] [place] [address] 06/24/2021 Cardiac Studies Cardiac Studies Gw, Sole Rounding Machine Operator 1 [address] [place] [address] [phone] 07/02/2021 Immunization/Injection Hematology Oncolog y Nurse, Med 4 200 [facility], [place] [address] [phone] 07/06/2021 Office Visit Hematology Oncology Tono Sanchez MD 200 [facility], [place] [address] [phone] 07/22/2021 Office Visit Pulmonary AlmaReynaldo MD [address] [facility] [address] [phone] 07/26/2021 Office Visit Cardiology Quyen Canseco CRNP 132 [facility] [address] [phone] 07/27/2021 Office Visit Gastroenterology Lyssa Stout CRNP 132 [facility] [address] [phone] 09/09/2021 Imaging Radiology Health Maintenance Due Date [...] of this encounter Implants Implanted Type Area Bench Manager Device Identifier Shelf Expiration Date Model / Serial / Lot Microtech Sure Clip Implanted:Qty: 2 on 06/03/2020 by Janis Hatch DO at OR [facility] Clip N/A: Colon 04/21/2022 [facility]-F-26-2 35-C-R / / [id number] documented as of this encounter Visit Diagnoses Diagnosis Ambulatory dysfunction- Primary documented in this encounter Advance Directives Documents on File Type Date Recorded Patient Home School Liaison Officer Expl anation Advance Directives and Living Will 04/29/2021 12:00 AM ADVANCE DIRECTIVE / LIVING WILL LIVING WILL AND HEALTH CARE POA Power of Phototypesetter Operator 04/29/2021 12:00 AM TOM R OF WOOL FLEECE SORTER HEALTH CARE POA Advanced 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 Agents on File Name Relationship Healthcare Agent [facility] Communication Syed Bustos Spouse Emergency Contact
--- OUTSIDE RECORDS SUMMARY | 2023-05-10 20:22 | External Medical Summary | Summary of Care ---
Author Name Unknown Organization [facility] [place] [address] Care Team Providers Care Fashion Coordinator Name Role Phone Vanita Dunn MD Primary Care Provid er Reason for Visit * Reason Comments eRx-Medication Refill Encounter Details Date Type Department Care Team Description 05/29/2021 Refill Palliative Medicine, [facility] [address] [place] [address] Carlos Caceres, DO 132 [facility] [address] [phone] Allergies Active Allergy Reactions Severity Noted Date Comments Adhesive Tape Itching 04/29/2020 Penicillins Rash 02/12/2008 Perflutren Protein A Microsph 2019 Definity-lower back pain documented as of this encounter (statuses as of 05/29/2021) Medications Medication Sig Dispensed Refills Start Date [...] 120 Vial 11 10/02/2019 Active nystatin (NYSTOP) 685275 UNIT/GM powder Apply topically to affected area [...] 60 Each 3 07/27/2020 Active Dexcom G6 Tractor Driver Device Use as directed. To test [...] Strip 3 10/29/2020 Active OneTouch Delica Plus Uncxly75E TESTING once daily 100 Each 3 10/29/2020 [...] 7.0% ([facility]) Use to inject insulin four times daily; E11.42 400 Each 3 12/05/2020 Active Fluticasone Propionate 50 MCG/ACT Nasal Suspension (Flonase)Indicati ons:Sinus congestion USE 2 SPRAYS IN EACH NOSTRIL ONCE DAILY as directed 16 g 5 12/23/2020 Active Additional Information Patient taking differently: 2 [place] Nasal DAILY PRN, Congestion, Informant: Pharmacy, Reported [...] ONCE DAILY 68 Cap 0 05/29/2021 Active Docusate Sodium 100 MG Oral Capsule (Colace) Take 1 Cap by mouth daily. 68 Cap 0 04/29/2021 Discontinued documented as of this encounter (statuses as of 05/29/2021) Active Problems Problem Noted Date Food insecurity [...] as of this encounter (statuses as of 05/29/2021) Resolved Problems Problem Noted Date Resolved Date [...] pain 01/24/2012 01/17/2017 Genetic Sleep Disorder Research Other*[id number] 05/13/2011 04/07/2016 Obstructive sleep apnea 01/18/2011 12/27/19 [...] as of this encounter (statuses as of 05/29/2021) Immunizations Name Administration Dates Next Due COVID-19 [...] Miscellaneous Notes * Telephone Encounter - Vazquez Uribe DO - 05/29/2021 9:36 AM EDT Signed Prescriptions: Disp Refills Docusate Sodium 100 MG Oral Capsule (Colac*68 Cap 0 Sig: TAKE 1 CAPSULE BY MOUTH ONCE DAILYAuthorizing Provider: VAZQUEZ URIBE documented in this encounter Plan of Treatment Upcoming Encounters Date Type Specialty Care Team Description 06/02/2021 Office Visit Pharmacy [facility] [address] [place] [address] [phone] 06/03/2021 Telemedicine Palliative Medicine Esperanza Painter MD [address] [place] [address] 06/07/2021 Nutrition Services Gastroenterology Melissa Omalley, RDN 132 [facility] [place] [address] [phone] 06/11/2021 Office Visit Podiatry Prakash Martino DPM [address] [place] [address] [phone] 06/14/2021 Office Visit Family Medicine Vanita Dunn MD [address] [place] [address] [phone] 06/24/2021 Cardiac Studies Cardiac Studies Gw, Telephonic Nurse Case Manager 1 132 [facility] [place] [address] [phone] 07/02/2021 Immunization/Injection Hematology Oncolog y Nurse, Med 4 200 [place] [address] [phone] 07/06/2021 Office Visit Hematology Oncology Tono Sanchez MD 200 [place] [address] [phone] 07/22/2021 Office Visit Pulmonary Reynaldo Marquez MD [address] [place] [address] [phone] 07/26/2021 Office Visit Cardiology Quyen Canseco CRNP 132 [facility] [place] [address] [phone] 07/27/2021 Office Visit Gastroenterology Lyssa Stout CRNP 132 [facility] [address] [phone] 09/09/2021 Imaging Radiology Health Maintenance Due Date [...] of this encounter Implants Implanted Type Area Hotel Custodian Device Identifier Shelf Expiration Date Model / Serial / Lot Microtech Sure Clip Implanted:Qty: 2 on 06/03/2020 by Janis Hatch DO at OR [facility] Clip N/A: Colon 04/21/2022 [facility]-F-26-2 35-C-R / / [id number] documented as of this encounter Advance Directives Documents on File Type Date Recorded Patient Yarding And Folding Machine Operator Expl anation Advance Directives and Living Will 04/29/2021 12:00 AM ADVANCE DIRECTIVE / LIVING WILL LIVING WILL AND HEALTH CARE POA Power of Rfid Strategist 04/29/2021 12:00 AM TOM R OF DEPARTMENT SALES MANAGER HEALTH CARE POA Advanced Directive service [...] Agents on File Name Relationship Healthcare Agent Romainin navya Communication Syed Bustos Spouse Emergency Contact
--- OUTSIDE RECORDS SUMMARY | 2023-05-10 20:22 | External Medical Summary | Summary of Care ---
Author Name Unknown Organization [facility] Address [place] [address] Care Team Providers Care Commercial Litigation Associate Name Role Phone Vanita Dunn MD Primary Care Provid er Reason for Visit * Reason Onset Date Comments Advice 05/28/2021 Encounter Details Date Type Department Care Team Description 05/28/2021 Telephone [facility] [address] [place] [address] Vanita Dunn MD [address] [place] [address] Advice Allergies Active Allergy Reactions Severity Noted Date Comments Adhesive Tape Itching 04/29/2020 Penicillins Rash 02/12/2008 Perflutren Protein A Microsph 2019 Definity-lower back pain documented as of this encounter (statuses as of 05/28/2021) Medications Medication Sig Dispensed Refills Start Date [...] 120 Vial 11 10/02/2019 Active nystatin (NYSTOP) 688698 UNIT/GM powder Apply topically to affected area [...] 60 Each 3 07/27/2020 Active Dexcom G6 Security Control Center Operator Device Use as directed. To test [...] Strip 3 10/29/2020 Active OneTouch Delica Plus [id number] TESTING once daily 100 Each 3 10/29/2020 [...] Active Additional Information Patient taking differently: 2 [place] Nasal DAILY PRN, Congestion, Informant: Pharmacy, Reported [...] mouth daily. 90 Tab 0 04/29/2021 Active Docusate Sodium 100 MG Oral Capsule (Colace) Take 1 Cap by mouth daily. 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 Please advise. Thank you. [facility] fax: [phone] documented in this encounter Plan of Treatment Upcoming Encounters Date Type Specialty Care Team Description 06/02/2021 Office Visit Pharmacy [facility] [address], [place] [id number] 06/03/2021 Telemedicine Palliative Medicine Esperanza Painter MD [address] [place] [address] 06/07/2021 Nutrition Services Gastroenterology Melissa Omalley, RDN [address] [place] [address] [phone] 06/11/2021 Office Visit Podiatry Prakash Martino, DPM [address] [place] [address] [phone] 06/14/2021 Office Visit Family Medicine Vanita Dunn MD [address] [place] [address] [phone] 06/24/2021 Cardiac Studies Cardiac Studies Gw, Optical Lab Technician 1 [address] [place] [address] [phone] 07/02/2021 Immunization/Injection Hematology Oncolog y Nurse, Med 4 [address] [place] [address] [phone] 07/06/2021 Office Visit Hematology Oncology Tono Sanchez MD [address] [place] [address] [phone] 07/22/2021 Office Visit Pulmonary Reynaldo Marquez MD [address] [place] [address] [phone] 07/26/2021 Office Visit Cardiology Quyen Canseco CRNP [address] [place] [address] [phone] 07/27/2021 Office Visit Gastroenterology Lyssa Stout CRNP [address] [place] [address] [phone] 09/09/2021 Imaging Radiology Health Maintenance Due Date [...] of this encounter Implants Implanted Type Area Project Builder Device Identifier Shelf Expiration Date Model / Serial / Lot Microtech Sure Clip Implanted:Qty: 2 on 06/03/2020 by Janis Hatch DO at OR [facility] Clip N/A: Colon 04/21/2022 [facility]-F-26-2 35-C-R / / [id number] documented as of this encounter Visit Diagnoses Diagnosis Ambulatory dysfunction- Primary documented in this encounter Advance Directives Documents on File Type Date Recorded Patient Parachute Inspector Expl anation Advance Directives and Living Will 04/29/2021 12:00 AM ADVANCE DIRECTIVE / LIVING WILL LIVING WILL AND HEALTH CARE POA Power of Frozen Food Department Manager 04/29/2021 12:00 AM TOM R OF MARITIME PILOT HEALTH CARE POA Advanced 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 Agents on File Name Relationship Healthcare Agent [facility] Communication Syed Fariasel Spouse Emergency Contact
--- OUTSIDE RECORDS SUMMARY | 2023-05-10 20:23 | External Medical Summary | Summary of Care ---
Author Name Unknown Organization [facility] Address [place] [address] Care Team Providers Care Extractor Puller Name Role Phone Vanita Dunn MD Primary Care Provid er Reason for Visit * Reason Onset Date Comments Advice 05/28/2021 Encounter Details Date Type Department Care Team Description 05/28/2021 Telephone [facility] [address] [place] [address] Vanita Dunn MD [address] [place] [address] Advice Allergies Active Allergy Reactions [...] 120 Vial 11 10/02/2019 Active nystatin (NYSTOP) 744758 UNIT/GM powder Apply topically to affected area [...] 60 Each 3 07/27/2020 Active Dexcom G6 Sales Account Leader Device Use as directed. To test [...] Strip 3 10/29/2020 Active OneTouch Delica Plus [id number] TESTING once daily 100 Each 3 10/29/2020 [...] Active Additional Information Patient taking differently: 2 [place] Nasal DAILY PRN, Congestion, Informant: Pharmacy, Reported [...] pain 01/24/2012 01/17/2017 Genetic Sleep Disorder Research Other*[id number] 05/13/2011 04/07/2016 Obstructive sleep apnea 01/18/2011 12/27/19 [...] - 05/28/2021 2:43 PM EDT Noted Brianne Pla PA-C 05/28/2021 2:43 PM * Telephone Encounter - Jovana Lambert RN - 05/28/2021 2:27 PM EDT Faxed to [facility] [phone] Patient family aware raudel RX has been faxed * Telephone Encounter - Brianne Pla PA-C - 05/28/2021 2:04 PM EDT I [...] have all necessary information sent to [facility] Home Oxygen and Medical Supplies if possible. Please advise. Thank you. [facility] fax: [phone] documented in this encounter Plan of Treatment Upcoming Encounters Date Type Specialty Care Team Description 06/02/2021 Office Visit Pharmacy [facility] [address] [place], [place] [id number] 06/03/2021 Telemedicine Palliative Medicine Esperanza Painter MD [address] [place] [address] 06/07/2021 Nutrition Services Gastroenterology Melissa Omalley, RDN [address] [place] [address] [phone] 06/11/2021 Office Visit Podiatry Prakash Martino, DPM [address] [place] [address] [phone] 06/14/2021 Office Visit Family Medicine Vanita Dunn MD [address] [place] [address] [phone] 06/24/2021 Cardiac Studies Cardiac Studies Gw, Hvac Design Engineer [address] [place] [address] [phone] 07/02/2021 Immunization/Injection Hematology Oncolog y Nurse, Med 4 [address] [place] [address] [phone] 07/06/2021 Office Visit Hematology Oncology Tono Sanchez MD [address] [place] [address] [phone] 07/22/2021 Office Visit Pulmonary Reynaldo Marquez MD [address] [place] [address] [phone] 07/26/2021 Office Visit Cardiology Quyen Canseco CRNP [address] [place] [address] [phone] 07/27/2021 Office Visit Gastroenterology Lyssa Stout CRNP [address] [place] [address] [phone] 09/09/2021 Imaging Radiology Health Maintenance Due Date [...] of this encounter Implants Implanted Type Area Food Technologist Device Identifier Shelf Expiration Date Model / Serial / Lot Microtech Sure Clip Implanted:Qty: 2 on 06/03/2020 by Janis Hatch DO at OR [facility] Clip N/A: Colon 04/21/2022 [facility]-F-26-2 35-C-R / / [id number] documented as of this encounter Visit Diagnoses Diagnosis Ambulatory dysfunction- Primary documented in this encounter Advance Directives Documents on File Type Date Recorded Patient Manager Of Loss Prevention Operations Expl anation Advance Directives and Living Will 04/29/2021 12:00 AM ADVANCE DIRECTIVE / LIVING WILL LIVING WILL AND HEALTH CARE POA Power of Outboard System Operator 04/29/2021 12:00 AM TOM R OF BARREL RIFLER OPERATOR HEALTH CARE POA Advanced Directive service [...] Agents on File Name Relationship Healthcare Agent [facility] Communication Syed Fariasel Spouse Emergency Contact
--- OUTSIDE RECORDS SUMMARY | 2023-05-10 20:23 | External Medical Summary | Summary of Care ---
Author Name Unknown Organization [facility] Address [place] [address] Care Team Providers Care Scientific Director Name Role Phone Vanita Dunn MD Primary Care Provid er Reason for Visit * Reason Onset Date Comments Order Request 05/10/2021 Advice 05/10/2021 Bed was ordered incorrectly Encounter Details Date Type Department Care Team Description 05/10/2021 Telephone [facility] [address] [place] [address] Vanita Dunn MD [address] [place] [address] Order Request; Advice (Bed was ordered inc... Allergies Active Allergy Reactions Severity Noted Date Comments Adhesive Tape Itching 04/29/2020 Penicillins Rash 02/12/2008 Perflutren Protein A Microsph 2019 Definity-lower back pain documented as of this encounter (statuses as of 05/27/2021) Medications Medication Sig Dispensed Refills Start Date [...] 120 Vial 11 10/02/2019 Active nystatin (NYSTOP) 886331 UNIT/GM powder Apply topically to affected area [...] 60 Each 3 07/27/2020 Active Dexcom G6 Insurance Executive Device Use as directed. To test [...] TO ACCESSING. 30 g 3 10/09/2020 Active medineeringuch Verio In Vitro Strip (Glucose Blood) TESTING once daily 100 Strip 3 10/29/2020 Active OneTouch Delica Plus [id number] TESTING once daily 100 Each 3 10/29/2020 [...] Active Additional Information Patient taking differently: 2 [place] Nasal DAILY PRN, Congestion, Informant: Pharmacy, Reported [...] mouth daily. 68 Cap 0 04/29/2021 Active Oxybutynin Chloride 5 MG [...] day. 2700 mL 2 03/29/2021 1 Discontinued documented as of this encounter (statuses as of 05/27/2021) Active Problems Problem Noted Date Food insecurity [...] as of this encounter (statuses as of 05/27/2021) Resolved Problems Problem Noted Date Resolved Date [...] 04/08/2019 04/18/2019 Oxygen dependent 04/08/2019 04/18/2019 senior care resident 04/08/2019 05/02/2019 Fall 04/04/2019 05/05/2020 Sprain [...] pain 01/24/2012 01/17/2017 Genetic Sleep Disorder Research Other*[id number] 05/13/2011 04/07/2016 Obstructive sleep apnea 01/18/2011 12/27/19 [...] as of this encounter (statuses as of 05/27/2021) Immunizations Name Administration Dates Next Due COVID-19 [...] encounter Miscellaneous Notes * Telephone Encounter - Jovana Lambert, UMA - 05/27/2021 3:36 PM EDT Spoke to patient The wrong bed was delivered by [facility] [phone] Tamara Aware will call us back The wrong [...] bed to be correct Pls call Pt [phone] * Telephone Encounter - Michaelle Lindquist LPN - 05/12/2021 1:55 PM EDT Spoke with pt she states she has to talk to her onsite case manager from [facility] "Dulce". Fax # was given so Dulce [...] Fax Number, if applicable: Call Back Number: [phone] If the caller is not a current [...] Care Team Description 06/02/2021 Office Visit Pharmacy [facility] [address] [place] [address] [phone] 06/03/2021 Telemedicine Palliative Medicine Esperanza Painter MD [address] [place] [address] 06/07/2021 Nutrition Services Gastroenterology Melissa Omalley, RDN [address] [place] [address] [phone] 06/11/2021 Office Visit Podiatry Prakash Martino, SIRENA [address] [place] [address] [phone] 06/14/2021 Office Visit Family Medicine Vanita Dunn MD [address] [place] [address] [phone] 06/24/2021 Cardiac Studies Cardiac Studies Gw, Gas Golf Cart Repairer 1 [address] [facility] [place] [address] [phone] 07/02/2021 Immunization/Injection Hematology Oncolog y Nurse, Med 4 [address] [place] [address] [phone] 07/06/2021 Office Visit Hematology Oncology Tono Sanchez MD 200 [place] [address] [phone] 07/22/2021 Office Visit Pulmonary Reynaldo Marquez MD [address] [place] [address] [phone] 07/26/2021 Office Visit Cardiology Quyen Canseco CRNP [address] [facility] [address] [phone] 07/27/2021 Office Visit Gastroenterology Lyssa Stout [facility]NP [address] [facility] [address] [phone] 09/09/2021 Imaging Radiology Health Maintenance Due Date [...] of this encounter Implants Implanted Type Area Flaring Machine Operator Device Identifier Shelf Expiration Date Model / Serial / Lot Microtech Sure Clip Implanted:Qty: 2 on 06/03/2020 by Janis Hatch DO at OR [facility] Clip N/A: Colon 04/21/2022 [facility]-F-26-2 35-C-R / / [id number] documented as of this encounter Advance Directives Documents on File Type Date Recorded Patient Tilting Head Band Sawyer Expl anation Advance Directives and Living Will 04/29/2021 12:00 AM ADVANCE DIRECTIVE / LIVING WILL LIVING WILL AND HEALTH CARE POA Power of Engineer/Conductor 04/29/2021 12:00 AM TOM R OF INTERLIBRARY LOAN SERVICES LIBRARIAN HEALTH CARE POA Advanced 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
--- OUTSIDE RECORDS SUMMARY | 2023-05-10 20:24 | External Medical Summary | Summary of Care ---
Author Name Unknown Organization [facility] Address [place] [address] Care Team Providers Care Photographic Editor Name Role Phone Vanita Dunn MD Primary Care Provid er Reason for Visit * Reason Onset Date Comments Order Request 05/10/2021 Advice 05/10/2021 Bed was ordered incorrectly Encounter Details Date Type Department Care Team Description 05/10/[address] [facility] [address] [place] [address] Vanita Dunn MD [address] [place] [address] Order Request; Advice (Bed was [...] 120 Vial 11 10/02/2019 Active nystatin (NYSTOP) 667981 UNIT/GM powder Apply topically to affected area [...] Each 3 07/27/2020 Active Dexcom G6 Patient Intake Representative Device Use as directed. To test [...] TO ACCESSING. 30 g 3 10/09/2020 Active [place] Verio In Vitro Strip (Glucose Blood) TESTING once daily 100 Strip 3 10/29/2020 Active OneTouch Delica Plus Hrvckq81K TESTING once daily 100 Each 3 10/29/2020 [...] hemoglobin A1c goal of less than 7.0% ([facility]) Use to inject insulin four times daily; E11.42 400 Each 3 12/05/2020 Active Fluticasone Propionate 50 MCG/ACT Nasal Suspension (Flonase)Indicati ons:Sinus congestion USE 2 SPRAYS IN EACH NOSTRIL ONCE DAILY as directed 16 g 5 12/23/2020 Active Additional Information Patient taking differently: 2 [place] Nasal DAILY PRN, Congestion, Informant: Pharmacy, Reported [...] pain 01/24/2012 01/17/2017 Genetic Sleep Disorder Research Other*[id number] 05/13/2011 04/07/2016 Obstructive sleep apnea 01/18/2011 12/27/19 [...] patient The wrong bed was delivered by [facility] [phone] Tamara Aware will call us back The wrong bed was ordered She will check on this They want fully ielectric The order was done 04/05/21 * Telephone [...] bed to be correct Pls call Pt [phone] * Telephone Encounter - Michaelle Lindquist LPN - 05/12/2021 1:55 PM EDT Spoke with pt she states she has to talk to her family caseworker from [facility] "Dulce". Fax # was given so Dulce [...] Fax Number, if applicable: Call Back Number: [phone] If the caller is not a current [...] Care Team Description 06/02/2021 Office Visit Pharmacy [facility] [address] [place] [address] [phone] 06/03/2021 Telemedicine Palliative Medicine Esperanza Painter MD [address] [place] [address] 06/07/2021 Nutrition Services Gastroenterology Melissa Omalley, RDN [address] [place] [address] [phone] 06/11/2021 Office Visit Podiatry Prakash Martino DPM [facility] [place] [address] [phone] 06/14/2021 Office Visit Family Medicine Vanita Dunn MD [address] [place] [address] [phone] 06/24/2021 Cardiac Studies Cardiac Studies Gw, Cv/Cvn Cv Tsc System Operator 1 [address] [facility] [place] [address] [phone] 07/02/2021 Immunization/Injection Hematology Oncolog y Nurse, Med 4 [address] [place] [address] [phone] 07/06/2021 Office Visit Hematology Oncology Tono Sanchez MD [address] [place] [address] [phone] 07/22/2021 Office Visit Pulmonary Reynaldo Marquez MD [address] [place] [facility] [place] [address] [phone] 07/26/2021 Office Visit Cardiology AjithQuyen hanson CRNP [address] [facility] [address] [phone] 07/27/2021 Office Visit Gastroenterology Lyssa Stout CR[facility] [address] [facility] [address] [phone] 09/09/2021 Imaging Radiology Health Maintenance Due Date [...] of this encounter Implants Implanted Type Area Garbage Pick Up Worker Device Identifier Shelf Expiration Date Model / Serial / Lot Microtech Sure Clip Implanted:Qty: 2 on 06/03/2020 by Janis Hatch DO at OR [facility] Clip N/A: Colon 04/21/2022 [facility]-F-26-2 35-C-R / / [id number] documented as of this encounter Advance Directives Documents on File Type Date Recorded Patient Expediter Clerk Expl anation Advance Directives and Living Will 04/29/2021 12:00 AM ADVANCE DIRECTIVE / LIVING WILL LIVING WILL AND HEALTH CARE POA Power of Chainstitch Pants Outseamer 04/29/2021 12:00 AM TOM R OF COUNSELING CENTER DIRECTOR HEALTH CARE POA Advanced Directive service [...] Agents on File Name Relationship Healthcare Agent [facility] p Communication Syed Bustos Spouse Emergency Contact
--- OUTSIDE RECORDS SUMMARY | 2023-05-10 20:24 | External Medical Summary | Summary of Care ---
Author Name Unknown Organization [place] [address] Care Team Providers Care Towboat Engineer Name Role Phone Kojo Dunn MD Primary Care Provid er Reason for Referral * Precert (Within 10 days (routine)) Status Reason Specialty Diagnoses / Procedures Referred By Contact Referred To Contact Pending Review Precert Cardiac Studies Diagnoses Hepatic cirrhosis, unspecified hepatic cirrhosis type, unspecified whether ascites present (HCC) Acute on chronic heart failure with preserved ejection fraction (HFpEF) (HCC) Procedures ECHO, COMPLETE (2D), TRANS-THORACIC Mega Hagen MD [address] [place] [address] Electronically signed by Mega Hagen MD at Reason for Visit * Reason Comments Hospital Follow-Up * Evaluate & Treat - Unlimited Visits (Within 10 days (routine)) Status Reason Specialty Diagnoses / Procedures Referred By Contact Referred To Contact Pending Review Specialty Services Required Cardiovascular Medicine / Cardiology Diagnoses Chest pain, unspecified type Keturah Sanchez MD [address] [place] [address] Encounter Details Date Type Department Care Team Description 05/26/2021 Office Visit Cardiology, [facility] [address] [place] [address] [address] Mega Hagen MD [address] [place] [address] [address] [phone] Hepatic cirrhosis, unspecified hepatic cirrhosis type, unspecified whether ascites present (HCC)*; Acute on chronic heart failure with preserved ejection fraction (HFpEF) (HCC); THAD on CPAP Allergies Active Allergy Reactions Severity Noted Date Comments Adhesive Tape Itching 04/29/2020 Penicillins Rash 02/12/2008 Perflutren Protein A Microsph 2019 Definity-lower back pain documented as of this encounter (statuses as of 05/26/2021) Medications Medication Sig Dispensed Refills Start Date [...] 120 Vial 11 10/02/2019 Active nystatin (NYSTOP) 109502 UNIT/GM powder Apply topically to affected area [...] 60 Each 3 07/27/2020 Active Dexcom G6 Obiee Obia Solution Architect Device Use as directed. To test [...] once daily 100 Strip 3 10/29/2020 Active ShopogoliqTouch Delica Plus [id number] TESTING once daily 100 Each 3 10/29/2020 [...] Active Additional Information Patient taking differently: 2 [place] Nasal DAILY PRN, Congestion, Informant: Pharmacy, Reported [...] than 7.0% ([facility]) Inject one pen (4.5 mg) under [...] mouth daily. 60 Tab 5 05/26/2021 Active Spironolactone 25 MG Oral Tablet (Aldactone) Take 1 Tab by mouth daily. 30 Tab 5 05/11/2021 Discontinued documented as of this encounter (statuses as of 05/26/2021) Active Problems Problem Noted Date Food insecurity [...] as of this encounter (statuses as of 05/26/2021) Resolved Problems Problem Noted Date Resolved Date [...] pain 01/24/2012 01/17/2017 Genetic Sleep Disorder Research Other*[id number] 05/13/2011 04/07/2016 Obstructive sleep apnea 01/18/2011 12/27/19 [...] as of this encounter (statuses as of 05/26/2021) Immunizations Name Administration Dates Next Due COVID-19 [...] Sign Reading Time Taken Comments Blood Pressure 142/80 05/26/2021 10:27 AM EDT wr ist Pulse 66 05/26/2021 10:27 AM EDT Temperature 36.3 C (97.3 F) 05/26/2021 10:27 AM E DT Respiratory Rate 14 05/26/2021 10:27 AM EDT Oxygen Saturation - - Inhaled [...] as of this encounter Progress Notes * Mega Hagen MD - 05/26/2021 1:41 PM EDT 05/26/2021 Cardiology consultation Referring Provider: PCP: KOJO DUNN [address] [place] [address] [phone] Chief Complaint: Edema, chest pain SUBJECTIVE: Shaina Bustos is a very complex 66 year old year old female with ongoing cardiac and medical issues 1. Cerebral palsy/spinal stenosis with marked restriction in activities, wheelchair dependent 2. Morbid obesity 3. 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 Obstructive sleep apnea /restrictive lung disease on nocturnal BiPAP 5. Chronic anemia 6. Hyperlipidemia on therapy 7. Chronic gastritis Referred for reassessment. History is noted above most recent difficulties been symptoms of atypical chest pain sharp in jabbing which have resulted in ER visits most recently May 22, 2021. Symptoms were felt to be positional and likely secondary to of costochondral or musculoskeletal complaints. EKG and cardiac enzymes revealed no acute ischemia. Chest x-ray without congestive heart failure. Patient has observed however in addition to pain increasing abdominal girth and distention as well as increasing lower extremity edema. At last hepatology visit furosemide had been increased to 40 mgper day and spironolactone to 25 mg per day. Patient is not aware of any specific improvement. Has been using her BiPAP at night but with difficulties with mass leak . No fevers or chills. No tachy palpitations. No prior history rheumatic fever scarlet fever. Patient has heart murmur and audible on exam today A Complete Review of Systems is as stated above or negative. Patient Active Problem List Diagnosis Code Venous [...] weight or BMI > 40) (HCC) E66.01 Dyslipidemia, goal LDL below 70 E78.5 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 R39.81 Atypical chest pain R07.89 Acquired hypothyroidism E03.9 Chronic pain syndrome G89.4 MEDICATION USE AGREEMENT [id number] Cirrhosis of liver (HCC) K74.60 THAD on CPAP G47.33, Z99.89 Wheelchair dependent Z99.3 Pancytopenia ([facility]) D61.818 Ambulatory dysfunction R26.2 DM type 2 with diabetic peripheral neuropathy ([facility]) E11.42 Insomnia G47.00 Recurrent major depressive disorder, in partial remission ([facility]) F33.41 Impaired mobility and ADLs Z74.09, Z78.9 Generalized weakness R53.1 Gastroesophageal reflux disease K21.9 History of Achilles tendon repair Z98.890 Anemia D64.9 Fibromyalgia M79.7 Achilles tendinitis, right leg M76.61 Thrombocytopenia ([facility]) D69.6 Iron deficiency anemia due to chronic blood loss D50.0 Splenomegaly R16.1 Esophagitis K20.90 Esophageal varices ([facility]) I85.00 Uncontrolled type 2 diabetes mellitus with hyperglycemia ([facility]) E11.65 Cardiomegaly I51.7 SOB (shortness of breath) R06.02 Melena K92.1 Vancomycin resistant enterococcus culture positive Z22.39 Urinary catheter dysfunction ([facility]) T83.018A Cyst of pancreas K86.2 Calculus of kidney N20.0 Acute on chronic heart failure with preserved ejection fraction (HFpEF) ([facility]) I50.33 Anginal chest pain at rest ([facility]) I20.8 Portal hypertensive gastropathy ([facility]) K76.6, K31.89 Lactic acidosis E87.2 Food insecurity Z59.4 Past Surgical History: Procedure Laterality Date BONE DEBRIDEMENT, FIRST 20 CM2 Right 04/16/2020 DEBRIDEMENT SKIN SUBCUTANEOUS TISSUE MUSCLE AND BONE performed by Josh Vazquez MD at [facility] DELIVERY 04/20/1982 COLONOSCOPY 04/21/2009 repeat in 10 years COLONOSCOPY, DIAGNOSTIC (RECTUM) 10/04/2016 normal bx, repeat 10 yrs/[facility] COLONOSCOPY, DIAGNOSTIC (RECTUM) N/A 06/03/2020 internal hemorrhoids/biopsies show adenomatous polyps/recall 5 years/COLONOSCOPY FLEXIBLE PROXIMAL DIAGNOSTIC performed by Janis Hatch DO at OR [facility] COLONOSCOPY, DIAGNOSTIC (RECTUM) 03/17/2020 poor prep / [facility] DENTAL SURGERY PROCEDURE NEC wisdom teeth x 4 DILATION AND CURETTAGE (D&C) EGD, FLEXIBLE, DIAGNOSTIC 10/04/2016 gastritis/[facility] EGD, FLEXIBLE, DIAGNOSTIC 01/11/2018 eso varices, retained food, repeat 1 yr/[facility] EGD, FLEXIBLE, DIAGNOSTIC N/A 06/03/2020 severe erosive esophagitis/non-bleeding grade II esophageal varices/gastritis/biopsies show inflammatory changes/repeat 3-4 months/ESOPHAGOGASTRODUODENOSCOPY (EGD), FLEXIBLE, TRANSORAL, DIAGNOSTIC per formed by Janis Hatch DO at OR [facility] EGD, FLEXIBLE, DIAGNOSTIC 11/27/2019 eso varices, portal hypertensive gastropathy, gastritis / [facility] EGD, FLEXIBLE, DIAGNOSTIC N/A 08/05/2020 large amount of food in stomach/repeat 1.5 years/ESOPHAGOGASTRODUODENOSCOPY (EGD), FLEXIBLE, TRANSORAL, DIAGNOSTIC performed by Janis Hatch DO at OR [facility] EGD, FLEXIBLE, DIAGNOSTIC N/A 03/10/2021 ESOPHAGOGASTRODUODENOSCOPY (EGD), FLEXIBLE, TRANSORAL, DIAGNOSTIC performed by Kris Blankenship MD at ENDOSCOPY [facility] IR VENOUS ACCESS MEDIPORT 10/05/2020 PELVIS/HIP JOINT SURGERY NEC teenager aid in walking REPAIR/GRAFT ACHILLES TENDON age 40 aid in walking Review of patient's allergies indicates: Allergen Reactions Adhesive Tape Itching Pcn [Penicillins] Rash Perflutren Protein A Microsph Definity-lower back pain Current Outpatient Medications Medication Sig Dispense Refill Spironolactone 25 MG Oral Tablet (Aldactone) Take 2 Tabs by mouth daily. 60 Tab 5 Ibuprofen 800 MG Oral Tablet (Motrin) Take 1 Tab by mouth daily as needed for Pain, Severe. with food for pain 30 Tab 3 Gabapentin 300 MG Oral Capsule (Neurontin) TAKE 1 CAPSULE BY MOUTH EVERY MORNING, 1 CAPSULE MIDDAY AND 2 CAPSULES IN THE EVENING. 360 Cap 1 Oxybutynin Chloride 5 MG Oral Tablet (Ditropan) TAKE 1 TABLET BY MOUTH TWICE DAILY 180 Tab 1 Nadolol 40 MG Oral Tablet (Corgard) Take 1 tablet daily. 90 Tab 1 Docusate Sodium 100 MG Oral Capsule (Colace) Take 1 Cap by mouth daily. 68 Cap 0 Senna-Docusate Sodium 8.6-50 MG Oral Tablet Take 1 Tab by mouth daily. 90 Tab 0 Trulicity 4.5 MG/0.5ML Subcutaneous Solution Pen-injector (Dulaglutide) Inject one pen (4.5 mg)under the skin once weekly 6 mL 3 Lantus SoloStar 100 UNIT/ML Subcutaneous Solution Pen-injector (Insulin Glargine) inject 28 units under skin at bedtime (Patient taking differently: inject 32 units under skin at bedtime) 30 mL 3 Furosemide 20 MG Oral Tablet [...] DAILY 90 Tab 3 OneTouch Delica Plus Tftslh01C TESTING once daily 100 Each 3 Lidocaine-Prilocaine 2.5-2.5 % External Cream (Emla) Apply topically to affected area as neededfor Other (for port). APPLY TO SKIN OVER MEDIPORT & COVER 1HR PRIOR TO ACCESSING. 30 g 3 Dexcom G6 Obiee Obia Solution Architect Device Use as directed. To test blood sugars 4 times a day Dx E11.9 1 Each 0 Fluticasone-Salmeterol 250-50 MCG/DOSE Inhalation Aerosol Powder Breath [...] to test once perday. 1 Kit 0 Albuterol Sulfate (ALBUTEROL HFA) 108 (90 BASE) MCG/ACT inhaler Inhale 2 Puffs by mouth every 4hours as needed for Cough or Wheezing. With spacer 16 g 1 nystatin (NYSTOP) 017653 UNIT/GM powder Apply topically to affected area 3 times a day. 60 g 1 albuterol sulfate (PROVENTIL) (2.5 MG/3ML) 0.083% nebulizer solution Inhale 1 Vial via nebulizer every 6 hours as needed for Wheezing. 120 Vial 11 vitamin c (ASCORBIC ACID) 500 MG Tablet Take 500 mg by mouth daily. CENTRUM SILVER PO TABS Take 1 Tab by mouth daily. 1 Tab 0 OneTouch Verio In Vitro Strip (Glucose Blood) TESTING once daily 100 Strip 3 Dexcom G6 Sensor Use as directed. To test blood sugars 4 times a day. Change sensor every 10 days. Dx E11.9 Please dispense 3 boxes for 90 day supply 3 Each 3 Dexcom G6 Transmitter Use as directed. To test blood sugars 4 times a day. Change every 90 days. DxE11.9 1 Each 3 OBJECTIVE/PHYSICAL EXAMINATION: BP 142/80 Comment: wrist | Pulse 66 | Temp 36.3 C (97.3 F) (Temporal Artery) | Resp 14 General: Obese female in wheelchair, no acute distress Head: normocephalic, no masses, lesions, tenderness or abnormalities Eyes: conjunctiva are pink and non-injected, sclera clear Throat: clear Nares: without discharge Neck: Thick supple, no adenopathy, no bruits, normal jugular venous pulse, no hepatojugular reflux,no carotid bruits Chest: normal shape and normal respiratory effort Lungs: Diminished breath sounds but clear Cardiac Exam: - regular rate & rhythm, harsh grade 2-3/6 systolic murmur, no diastolic murmur, gallop or rub - normal S-1, normal S-2 Abdomen: Markedly distended moderately tense. No distinct fluid wave no palpable past splenomegaly.Mild tenderness right upper quadrant Musculoskeletal: no gait disturbance, no joint inflammation, no deforming arthritis Extremities: 2 to 3+ edema to the knees and thighs with chronic stasis changes, no cyanosis, pulsesintact 2+/4 Neuro: grossly normal exam Data: EKG performed 05/18/2021 , and reviewed personally : Sinus rhythm with first-degree AV block at 69 beats per minute isolated Q-wave lead 3 unchanged from prior studies Lipid Panel Results: Results for orders placed or performed in visit on 04/05/19 LIPID PANEL Result Value Ref Range HOURS FASTING >8 HOURS hours Triglycerides 79 <200 mg/dL Cholesterol 101 <200 mg/dL HDL Cholesterol 42 >39 mg/dL Cholesterol-HDL Ratio 2.4 LDL Cholesterol 43 0 - 129 mg/dL ASSESSMENT: 66 year old year old female complex history. Morbid obesity essentially wheelchair-bound mobility referred for chest pain and edema. Issues include hepatic cirrhosis with portal hypertension, chronic gastritis and anemia Possible component of diastolic heart failure preserved ejection fraction present. Exam suggests atleast a component of mild to moderate aortic stenosis Recent symptoms do not suggest acute myocardial injury or ischemia as source of symptoms Exam does reflect significant increase in abdominal girth and lower extremity edema likely multifactorial. PLAN: Would limit the use of ibuprofen Patient needs a more aggressive approach to diuretics will increase furosemide by doubling current dose daily x3 days and strongly urging ongoing usage as prescribed. Patient poor historian regarding medications and has difficulty confirming current medications being used or if taken I have requested she bring all medications to upcoming appointments primary care physician. Will increase spironolactone to 50 mg per day as a large portion of fluid retention may be secondary cirrhosis and portal hypertension. Recommended restriction and fluids to less than 2 quarts per day There remains room to increase diuretics further from blood pressure standpoint If no improvement patient ultimately require inpatient management Echocardiogram will be repeated to reassess aortic valve though prior studies of in extremely poor in technical quality DISPOSITION: Patient return in 6 to 8 weeks but keep all currently scheduled appointments Mega Hagen MD Cardiology, [facility] [address] [facility] [address] documented in this encounter Nursing Notes * Tracee Laureano LPN - 05/26/2021 10:26 AM EDT Pt referred for continued chest pain. Has been seen multiple times recently for such documented in this encounter Plan of Treatment Upcoming Encounters Date Type Specialty Care Team Description 06/02/2021 Office Visit Pharmacy [place], [facility] [address] [place] [address] [phone] 06/03/2021 Telemedicine Palliative Medicine Esperanza Painter MD [address] [place] [address] 06/07/2021 Nutrition Services Gastroenterology Melissa Omalley, SAMANTHA [address] [place] [address] [phone] 06/11/2021 Office Visit Podiatry Prakash Martino DPM [address] [place] [address] 06/14/2021 Office Visit Family Medicine Kojo Dunn MD [address] [place] [address] [phone] 06/24/2021 Cardiac Studies Cardiac Studies Gw, 2Nd Grade Teacher 1 [address] [place] [address] [phone] 07/02/2021 Immunization/Injection Hematology Oncolog y Nurse, Med 4 [address] [place] [address] [phone] 07/06/2021 Office Visit Hematology Oncology Tono Sanchez MD [address] [place] [address] [phone] 07/22/2021 Office Visit Pulmonary Reynaldo Marquez MD [address] [facility], [place] [address] 07/26/2021 Office Visit Cardiology Quyen Canseco CRNP 132 [facility] [place] [address] 07/27/2021 Office Visit Gastroenterology Lyssa Stout CRNP [address] [facility] [place] [id number] 09/09/2021 Imaging Radiology Scheduled Orders Name Type Priority Associated Diagnoses Orde r Schedule ECHO, COMPLETE (2D), TRANS-THORACIC Echocardiology Routine Hepatic cirrhosis, unspecified hepatic cirrhosis type, unspecified whether ascites present (HCC) Acute on chronic heart failure with preserved ejection fraction (HFpEF) (HCC) Expected: 06/24/2021 (Approximate), Expires: 06/25/2023 Health Maintenance Due Date Last Done Comments [...] of this encounter Implants Implanted Type Area Spin Table Operator Device Identifier Shelf Expiration Date Model / Serial / Lot Microtech Sure Clip Implanted:Qty: 2 on 06/03/2020 by Janis Hatch DO at OR [facility] Clip N/A: Colon 04/21/2022 [facility]-F-26-2 35-C-R / / [id number] documented as of this encounter Visit Diagnoses Diagnosis Hepatic cirrhosis, unspecified hepatic cirrhosis type, unspecified whether ascites present (HCC)- Primary Acute on chronic heart failure with preserved ejection fraction (HFpEF) (HCC) THAD on CPAP Obstructive sleep apnea (adult) (pediatric) documented in this encounter Advance Directives Documents on File Type Date Recorded Patient Operational Test Mechanic 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 Agents on File Name Relationship Healthcare Agent Romainne p Communication Syed Fariasel Spouse Emergency Contact "
--- OUTSIDE RECORDS SUMMARY | 2023-05-10 20:24 | External Medical Summary | Summary of Care ---
Author Name Unknown Organization [facility] Address [place] [address] Care Team Providers Care Courier Delivery Driver Name Role Phone Vanita Dunn MD Primary Care Provid er Reason for Visit * Reason Onset Date Comments Order Request 05/10/2021 Advice 05/10/2021 Bed was ordered incorrectly Encounter Details Date Type Department Care Team Description 05/10/2021 Telephone [facility] [address] [place] [address] Vanita Dunn MD [address] [place] [address] Order Request; Advice (Bed was [...] 120 Vial 11 10/02/2019 Active nystatin (NYSTOP) 905357 UNIT/GM powder Apply topically to affected area [...] 60 Each 3 07/27/2020 Active Dexcom G6 Student Ministries Director Device Use as directed. To test [...] TO ACCESSING. 30 g 3 10/09/2020 Active Piktochartuch Verio In Vitro Strip (Glucose Blood) TESTING once daily 100 Strip 3 10/29/2020 Active OneTouch Delica Plus Enagei25F TESTING once daily 100 Each 3 10/29/2020 [...] of less than 7.0% ([facility]) Use to inject insulin four times daily; E11.42 400 Each 3 12/05/2020 Active Fluticasone Propionate 50 MCG/ACT Nasal Suspension (Flonase)Indicati ons:Sinus congestion USE 2 SPRAYS IN EACH NOSTRIL ONCE DAILY as directed 16 g 5 12/23/2020 Active Additional Information Patient taking differently: 2 [place] Nasal DAILY PRN, Congestion, Informant: Pharmacy, Reported [...] pain 01/24/2012 01/17/2017 Genetic Sleep Disorder Research Other*[id number] 05/13/2011 04/07/2016 Obstructive sleep apnea 01/18/2011 12/27/19 [...] Miscellaneous Notes * Telephone Encounter - Cassie Hoff OSA - 05/27/2021 1:15 PM EDT Pt said that she got bed delivered today 05/27/2021 and she says that it is not the correct bed Pt says that it needs to be fully electric so that it goes up and down , Pt has severe back pain and needs this bed to be correct Pls call Pt [phone] * Telephone Encounter - Michaelle Lindquist LPN - 05/12/2021 1:55 PM EDT Spoke with pt she states she has to talk to her top case assembler from [facility] "Dulce". Fax # was given so Dulce could fax information of where pt's has gotten her bed from to Dr Dunn * Telephone Encounter - Connie Arguello RN - 05/12/2021 7:38 AM EDT Case management is no longer following this patient, will route request to nurse pool Connie Arguello RN * Telephone Encounter - Vanita [...] Fax Number, if applicable: Call Back Number: [phone] If the caller is not a current [...] Care Team Description 06/02/2021 Office Visit Pharmacy [facility] [address], [place] [id number] 06/03/2021 Telemedicine Palliative Medicine Esperanza Painter MD [address] [place] [address] 06/07/2021 Nutrition Services Gastroenterology Melissa Omalley, SAMANTHA [address] [place] [address] [phone] 06/11/2021 Office Visit Podiatry Prakash Martino, MENDEZ [address] [place] [address] 06/14/2021 Office Visit Family Medicine Vanita Dunn MD [address] [place] [address] [phone] 06/24/2021 Cardiac Studies Cardiac Studies Gw, Trial Examiner 1 [address] [place] [address] [phone] 07/02/2021 Immunization/Injection Hematology Oncolog y Nurse, Med 4 [address] [place] [address] [phone] 07/06/2021 Office Visit Hematology Oncology Tono Sanchez MD [address] [place] [address] [phone] 07/22/2021 Office Visit Pulmonary Reynaldo Marquez MD [address] [place] [address] [phone] 07/26/2021 Office Visit Cardiology Quyen Canseco CRNP [address] [address] [phone] 07/27/2021 Office Visit Gastroenterology Lyssa Stout CRNP [address] [address] [phone] 09/09/2021 Imaging Radiology Health Maintenance Due Date [...] of this encounter Implants Implanted Type Area Ear Nose Throat Surgeon Device Identifier Shelf Expiration Date Model / Serial / Lot Microtech Sure Clip Implanted:Qty: 2 on 06/03/2020 by Janis Hatch DO at OR [facility] Clip N/A: Colon 04/21/2022 [facility]-F-26-2 35-C-R / / [id number] documented as of this encounter Advance Directives Documents on File Type Date Recorded Patient Residential Sales Expl anation Advance Directives and Living Will 04/29/2021 12:00 AM ADVANCE DIRECTIVE / LIVING WILL LIVING WILL AND HEALTH CARE POA Power of Child Care Development Specialist 04/29/2021 12:00 AM TOM R OF JOB ANALYSIS MANAGER HEALTH CARE POA Advanced Directive service [...] Agents on File Name Relationship Healthcare Agent [facility]rand [facility] Communication Syed Bustos Spouse Emergency Contact
--- OUTSIDE RECORDS SUMMARY | 2023-05-10 20:25 | External Medical Summary ---
Author Name Unknown Address Unknown Organization K01:LABORATORY [facility] - [address] [place] [address] Laboratory Report Ordering Provider Test Date Status SAVAGE KOCH 05/25/2021 11:17:12 Final Observation Date Value Abnormality Reference (Units ) Status MYCODE SPECIMEN-SST 05/25/2021 11:17:12 Freezing of extracted DNA, whole blood and/or serum. Final Performing Location LAB[facility]ORY [facility] - [address] [place] [place] [address]
--- OUTSIDE RECORDS SUMMARY | 2023-05-10 20:25 | External Medical Summary | Summary of Care ---
Author Name Unknown Organization [facility] Address [place] [address] Care Team Providers Care Inter Com Installer Name Role Phone Vanita Dunn MD Primary Care Provid er Reason for Visit * Reason Onset Date Comments Advice 05/18/2021 Status Check 05/19/2021 Status Check 05/18/2021 Encounter Details Date Type Department Care Team Description 05/18/[address] [facility] [address] [place] [address] Vanita Dunn MD [address] [place] [address] Advice; Status Check; Status Check Allergies Active Allergy Reactions Severity Noted Date Comments Adhesive Tape Itching 04/29/2020 Penicillins Rash 02/12/2008 Perflutren Protein A Microsph 2019 Definity-lower back pain documented as of this encounter (statuses as of 05/24/2021) Medications Medication Sig Dispensed Refills Start Date [...] 120 Vial 11 10/02/2019 Active nystatin (NYSTOP) 364256 UNIT/GM powder Apply topically to affected area [...] 60 Each 3 07/27/2020 Active Dexcom G6 Child Development Assistant Device Use as directed. To [...] TO ACCESSING. 30 g 3 10/09/2020 Active eVestment Verio In Vitro Strip (Glucose Blood) TESTING once daily 100 Strip 3 10/29/2020 Active OneTouch Delica Plus [id number] TESTING once daily 100 Each 3 10/29/2020 [...] Active Additional Information Patient taking differently: 2 [place] Nasal DAILY PRN, Congestion, Informant: Pharmacy, Reported [...] mouth daily. 30 Tab 5 03/23/2021 Active Lactulose 20 GM/30ML Oral Solution (Constulose) Take 67.5 mL by mouth 3 times a day. Titrate to have 3 to 4 bowel movement every day. 2700 mL 2 03/29/2021 Active Potassium Chloride Selena ER 10 MEQ [...] by mouth daily. 30 Tab 5 05/11/2021 Active Oxybutynin Chloride 5 MG Oral Tablet (Ditropan) TAKE 1 TABLET BY MOUTH TWICE DAILY 180 Tab 1 05/13/2021 Active Gabapentin 300 MG Oral Capsule (Neurontin) TAKE 1 CAPSULE BY MOUTH EVERY MORNING, 1 CAPSULE MIDDAY AND 2 CAPSULES IN THE EVENING. 360 Cap 1 05/13/2021 Active documented as of this encounter (statuses as of 05/24/2021) Active Problems Problem Noted Date Food insecurity [...] as of this encounter (statuses as of 05/24/2021) Resolved Problems Problem Noted Date Resolved Date AMS (altered mental status) 02/04/2021 0505/2021 Acute blood loss anemia 07/06/2020 12/01/19 21 [...] pain 01/24/2012 01/17/2017 Genetic Sleep Disorder Research Other*[id number] 05/13/2011 04/07/2016 Obstructive sleep apnea 01/18/2011 12/27/19 [...] as of this encounter (statuses as of 05/24/2021) Immunizations Name Administration Dates Next Due COVID-19 [...] encounter Miscellaneous Notes * Telephone Encounter - Yanira Graves LPN - 05/24/2021 9:16 AM EDT Pt states that she spoke to [facility] this morning and they have not received the information sent on Monday Pt states that she is getting disgusted Placed pt on hold Called [facility], ninoska Suárez - the fax sent on Monday was received but it has not been processed yet She states that pt should hear from them in the next 2 days - advised that I would update pt Pt made aware and conveyed verbal understanding * Telephone Encounter - Alberta Shaw OSA - 05/24/2021 9:08 AM EDT Pt calling. Please fax again. Pt states that it wasn't received. * Telephone Encounter - Jovana Lambert RN - 05/21/2021 9:10 AM EDT Faxed * Telephone Encounter - Brianne Pal PA-C - 05/21/2021 8:23 AM EDT note addended - please fax Brianne Pal PA-C 05/21/2021 8:23 AM * Telephone Encounter - Jovana Lambert RN - 05/20/2021 12:20 PM EDT Spoke to patient She said [facility] Medical Needs OV and order faxed to them Phone number is [phone] Patient does not have fax number Francisca Welch Can you adapt notes from 04/05/2021 and send back for us to Francisca Spoke to Stephanie Referral Needs chart note Why Head of Bed needs elevated And why patient needs frequent position changes Fax to above * Telephone Encounter - Rajwinder Niño PHARM Tech - 05/20/2021 9:10 AM EDT pt calling to check on status of hospital bed Thank you, Rajwinder Niño Supercharger Mechanic [facility] 05/20/2021, 9:10 AM * Telephone Encounter - Kiesha Schmitt LPN - 05/19/2021 3:56 PM EDT Pt states [facility] must have an order to ship the hospital bed, tried calling # below, no answer and advised not to leave a voice message on that #. Will discuss with Jovana tomorrow. * Telephone Encounter - Marii Sheets OSA - 05/19/2021 3:40 PM EDT Patient called back stating that she also needs a script so that the bed can be delivered. Patient is asking for Jovana Lambert to call her back. * Telephone Encounter - Jovana Lambert RN - 05/19/2021 1:30 PM EDT Spoke to He is aware we have faxed this order He will check with Dulce * Telephone Encounter - Jovana Lambert RN - 05/19/2021 1:22 PM EDT On Ezekiel Pal On 04/06/2021 We got the following Request An order was requested for this patient. Name of Requesting Provider: Dulce Order Requested: Hospital Bed Diagnosis/Reason for Request: Cerebral Palsy Does the order need to be faxed somewhere? If so, where?: Yes, [facility] Fax Number, if applicable: [phone] Call Back Number: [phone] This order was faxed already 04/06/2021 * Telephone Encounter - Ammy Guadarrama OSA - 05/19/2021 11:31 AM EDT Patient calling in to check on the status of previous message. * Telephone Encounter - Deisy Estevez OSA - 05/18/2021 5:17 PM EDT Hello, Patient called questioning whether a hospital bed had been authorized/ordered for her. Please advise. Thank you, THAD Cheng documented in this encounter Plan of Treatment Upcoming Encounters Date Type Specialty Care Team Description 05/25/2021 Office Visit Family Medicine Vanita Dunn MD [address] [place] [address] 05/26/2021 Office Visit Cardiology Mega Hagen MD [address] [place] [address] [place] [address] [phone] 06/02/2021 Office Visit Pharmacy [place] [address], [place] [phone] 06/03/2021 Telemedicine Palliative Medicine Esperanza Painter MD [address] [place] [address] 06/07/2021 Nutrition Services Gastroenterology Melissa Omalley RDN [address] [facility] [place] [address] [phone] 06/11/2021 Office Visit Podiatry Prakash Martino, DPM [address] [place] [address] 06/14/2021 Office Visit Family Medicine Vanita Dunn MD [address], [place] [id number] 07/02/2021 Immunization/Injection Hematology Oncolog y Nurse, Med [address] [place] [address] [phone] 07/06/2021 Office Visit Hematology Oncology Tono Sanhcez MD [address] [place] [address] [phone] 07/22/2021 Office Visit Pulmonary AlmaReynaldo MD [address] [place] [address] [phone] 07/27/2021 Office Visit Gastroenterology Lyssa Stout CRNP [facility] [address] [phone] 09/09/2021 Imaging Radiology Health Maintenance Due Date [...] this encounter Implants Implanted Type Area Application Integration Architect Device Identifier Shelf Expiration Date Model / Serial / Lot Microtech Sure Clip Implanted:Qty: 2 on 06/03/2020 by Janis Hatch DO at OR [facility] Clip N/A: Colon 04/21/2022 [facility]-F-26-2 35-C-R / / [id number] documented as of this encounter Advance Directives Documents on File Type Date Recorded Patient Reel Hooker 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 File Name Relationship Healthcare Agent [facility] Communication Syed Bustos Spouse Emergency Contact
--- OUTSIDE RECORDS SUMMARY | 2023-05-10 20:25 | External Medical Summary ---
Author Name Unknown Address Unknown Organization K01:[facility] [place] - [address] [place] [address] Laboratory Report Ordering Provider Test Date Status SAVAGE KOCH 05/25/2021 11:17:12 Final Observation Date Value Abnormality Reference (Units ) Status MYCODE SPECIMEN-SST 05/25/2021 11:17:12 Freezing of extracted DNA, whole blood and/or serum. Final Performing Location [facility] [place] [facility] [address] [facility] [address]
--- OUTSIDE RECORDS SUMMARY | 2023-05-10 20:25 | External Medical Summary | Summary of Care ---
Author Name Unknown Organization [place] [address] Care Team Providers Care Footwear Machinery Instructor Name Role Phone Vanita Dunn MD Primary Care Provid er Reason for Visit * Reason Comments Emergency Department Follow-Up Encounter Details Date Type Department Care Team Description 05/25/2021 Office Visit [facility] [address] [place] [address] Vanita Dunn MD [address] [place] [address] Costochondral chest pain* Allergies Active Allergy Reactions Severity Noted Date Comments Adhesive Tape Itching 04/29/2020 Penicillins Rash 02/12/2008 Perflutren Protein A Microsph 2019 Definity-lower back pain documented as of this encounter (statuses as of 05/25/2021) Medications Medication Sig Dispensed Refills Start Date [...] 120 Vial 11 10/02/2019 Active nystatin (NYSTOP) 720663 UNIT/GM powder Apply topically to affected area [...] 60 Each 3 07/27/2020 Active Dexcom G6 Clipper Operator Device Use as directed. To test [...] Strip 3 10/29/2020 Active OneTouch Delica Plus [id number] TESTING once daily 100 Each 3 10/29/2020 [...] Active Additional Information Patient taking differently: 2 [place] Nasal DAILY PRN, Congestion, Informant: Pharmacy, Reported [...] for pain 30 Tab 3 05/25/2021 Active Lactulose 20 GM/30ML Oral Solution (Constulose) Take 67.5 mL by mouth 3 times a day. Titrate to have 3 to 4 bowel movement every day. 2700 mL 2 03/29/2021 Discontinued documented as of this encounter (statuses as of 05/25/2021) Active Problems Problem Noted Date Food insecurity [...] as of this encounter (statuses as of 05/25/2021) Resolved Problems Problem Noted Date Resolved Date [...] failure 04/08/2019 04/18/2019 Oxygen dependent 04/08/2019 04/18/2019 group home resident 04/08/2019 05/02/2019 Fall 04/04/2019 05/05/2020 [...] pain 01/24/2012 01/17/2017 Genetic Sleep Disorder Research Other*[id number] 05/13/2011 04/07/2016 Obstructive sleep apnea 01/18/2011 12/27/19 [...] as of this encounter (statuses as of 05/25/2021) Immunizations Name Administration Dates Next Due COVID-19 [...] Reading Time Taken Comments Blood Pressure 116/72 05/25/2021 10:06 AM EDT Pulse 68 05/25/2021 10:06 AM EDT Temperature 36.4 C (97.6 F) 05/25/2021 1 0:06 AM EDT Respiratory Rate 20 05/25/2021 10:0 6 AM EDT Oxygen Saturation 93% 05/25/2021 10: 06 AM EDT Room Air Pulse 68 Inhaled Oxygen Concentration - - Weight - [...] Progress Notes * Vanita Dunn MD - 05/25/2021 10:04 AM EDT ASSESSMENT / PLAN: Costochondral chest pain (Primary) - reviewed ER visit - here for follow up - discussed plan to treat pain with not just tylenol or nitroglycerin but could trial ibuprofen for acute pain as well and if resolves, may not necessitate ERvisit, however if does not resolve pain could consider ER visit - pt and Brice verbalized understanding and agreement with this plan. - NEW Ibuprofen 800 MG Oral Tablet (Motrin); Take 1 Tab by mouth daily as needed for Pain, Severe. with food for pain If needed, prefers contact by: Ok to leave message on phone: Total time: I spent a total of 20-29 minutes (exact time 20 mins) on the date of service in preparation, delivery, and documentation of the care provided to Shaina Bustos excluding any time spent in the performance of separately billed services. SUBJECTIVE: Shaina Bustos is a 66 year old female. Nursing Notes: Jovana Lambert RN 05/25/21 1010 Signed Here for ED follow up chest pain HPI: Here for ER follow up. Review of notes - Seen in ED 05/22/21 for eval of chest pain in center of chest, radiating to left arm - nitro at home without benefit, rated 10/10 - also COLON and SOB - labsremarkable for slightly elev glucose, normal kidney function and e-lytes, Troponin T 10 which is normal, CBC with baseline anemia and leukopenia, AST 51, ALT 29 - CXR nonacute. Discharged home. Today: states pain is resolved. We reviewed her visit and toradol treatment that seemed to help hersymptoms. Current Outpatient Medications Medication Sig Dispense Refill Ibuprofen 800 MG Oral Tablet (Motrin) Take [...] Tab by mouth daily. 30 Tab 5 Docusate Sodium 100 MG Oral [...] DAILY 90 Tab 3 OneTouch Delica Plus [id number] TESTING once daily 100 Each 3 OneTouch Verio In Vitro Strip (Glucose Blood) TESTING once daily 100 Strip 3 Lidocaine-Prilocaine 2.5-2.5 % External Cream (Emla) Apply topically to affected area as neededfor Other (for port). APPLY TO SKIN OVER MEDIPORT & COVER 1HR PRIOR TO ACCESSING. 30 g 3 Dexcom G6 Clipper Operator Device Use as directed. To test [...] 90 days. Dx E11.9 1 Each 3 Fluticasone-Salmeterol 250-50 MCG/DOSE Inhalation [...] With spacer 16 g 1 nystatin (NYSTOP) 214017 UNIT/GM powder Apply topically to affected area [...] mouth daily. 1 Tab 0 OBJECTIVE: BP 116/72 | Pulse 68 | Temp 36.4 C (97.6 F) (Tympanic) | Resp 20 | SpO2 93% Comment: Room Air Pulse 68 Vitals reviewed and is normotensive afebrile and not tachycardic and not hypoxic General: No acute distress. Neuro: Alert Pleasant & interactive. Respiratory: Good inspiratory effort, no labored breathing. CTAB CV: Distant heart sounds, appears to have + blowing systolic murmur 2/6 but otherwise sinus rate, no rubs or gallops. HEENT: Conjunctivae appear clear. No swelling noted face or lips. Skin: No rash visible on exposed skin areas, normal coloration & appears dry. Psych: Normal affect. Fluent speech. Vanita Dunn MD [address] [address] There are no Patient Instructions on file for this visit. documented in this encounter Nursing Notes * Jovana Lambert RN - 05/25/2021 10:02 AM EDT Here for ED follow up chest pain documented in this encounter Plan of Treatment Upcoming Encounters Date Type Specialty Care Team Description 05/26/2021 Office Visit Cardiology Mega Hagen MD [address] [place] [address] [phone] 06/02/2021 Office Visit Pharmacy [facility] [address], [place] [phone] 06/03/2021 Telemedicine Palliative Medicine Esperanza Painter MD [address] [place] [address] 06/07/2021 Nutrition Services Gastroenterology Melissa Omalley, SAMANTHA [address] [place] [address] [phone] 06/11/2021 Office Visit Podiatry Prakash Martino, [facility] [address] [place] [address] [phone] 06/14/2021 Office Visit Family Medicine Vanita Dunn MD [address], [place] [phone] 07/02/2021 Immunization/Injection Hematology Oncolog y Nurse, Med [address] [place] [address] [phone] 07/06/2021 Office Visit Hematology Oncology Tono Sanchez MD [address] [place] [address] [phone] 07/22/2021 Office Visit Pulmonary Reynaldo Marquez MD [address] [place] [address] [phone] 07/27/2021 Office Visit [facility]ology [facility]out [facility] [place] [address] [phone] 09/09/2021 Imaging Radiology Health Maintenance Due Date [...] of this encounter Implants Implanted Type Area Right Of Way Worker Device Identifier Shelf Expiration Date Model / Serial / Lot Microtech Sure Clip Implanted:Qty: 2 on 06/03/2020 by Janis Hatch DO at OR [facility] Clip N/A: Colon 04/21/2022 [facility]-F-26-2 35-C-R / / [id number] documented as of this encounter Visit Diagnoses Diagnosis Costochondral chest pain- Primary Painful respiration documented in this encounter Advance Directives Documents on File Type Date Recorded Patient 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
--- OUTSIDE RECORDS SUMMARY | 2023-05-10 20:25 | External Medical Summary | Summary of Care ---
Author Name Unknown Organization [facility] Address [place] [address] Care Team Providers Care Driver Wheelchair Name Role Phone Vanita Dunn MD Primary Care Provid er Reason for Visit * Reason Onset Date Comments Emergency Department Follow-Up 05/24/2021 Encounter Details Date Type Department Care Team Description 05/24/2021 Telephone [facility] [address] [place] [address] Vanita Dunn MD [address] [place] [address] Emergency Department Follow-Up Allergies Active [...] 120 Vial 11 10/02/2019 Active nystatin (NYSTOP) 792569 UNIT/GM powder Apply topically to affected area [...] 60 Each 3 07/27/2020 Active Dexcom G6 Head Up Operator Device Use as directed. To [...] Strip 3 10/29/2020 Active OneTouch Delica Plus Slzvll35K TESTING once daily 100 Each 3 10/29/2020 [...] Active Additional Information Patient taking differently: 2 [place] Nasal DAILY PRN, Congestion, Informant: Pharmacy, Reported [...] pain 01/24/2012 01/17/2017 Genetic Sleep Disorder Research Other*[id number] 05/13/2011 04/07/2016 Obstructive sleep apnea 01/18/2011 12/27/19 [...] encounter Miscellaneous Notes * Telephone Encounter - José Luis Graves LPN - 05/24/2021 9:07 AM EDT Emergency Department Follow Up: Did patient call the office before going to ER: No When was patient seen: 05/22/21 Which ED: [facility] What were they seen for: Chest Pain What testing did they have done: cxr, ekg and lab work What did ED think was wrong (dx): Final diagnoses: Chest pain Chest pain, non-cardiac Any new medications prescribed: none How is patient feeling today: pretty good Patient concerns today: told to follow up in the office with PCP - appt scheduled 05/25/21 * Telephone Encounter - Alberta Shaw OSA - 05/24/2021 9:03 AM EDT Reason for patient's call: er follow up Caller was transferred to josé luis at the nurse line. documented in this encounter Plan of Treatment Upcoming Encounters Date Type Specialty Care Team Description 05/25/2021 Office Visit Family Medicine Vanita Dunn MD [address] [place] [address] [phone] 05/26/2021 Office Visit Cardiology Mega Hagen MD [address] [place] [address] [phone] 06/02/2021 Office Visit Pharmacy [facility] [address] [place] [address] [phone] 06/03/2021 Telemedicine Palliative Medicine Esperanza Painter MD [address] [place] [id number] 06/07/2021 Nutrition Services Gastroenterology Melissa Omalley RDN [address] [facility] [place] [address] [phone] 06/11/2021 Office Visit Podiatry Prakash Martino, [place] [address] [place] [address] 06/14/2021 Office Visit Family Medicine Vanita Dunn MD [address] [place] [address] 07/02/2021 Immunization/Injection Hematology Oncolog y Nurse, Med 4 [address] [place] [address] [phone] 07/06/2021 Office Visit Hematology Oncology Tono Sanchez MD [address] [place] [address] [phone] 07/22/2021 Office Visit Pulmonary AlmaReynaldo MD [address], [place] [phone] 07/27/2021 Office Visit Gastroenterology Lyssa Stout CRNP [address] [facility] [place] [address] [phone] 09/09/2021 Imaging Radiology Health Maintenance Due Date [...] this encounter Implants Implanted Type Area Carpenter Device Identifier Shelf Expiration Date Model / Serial / Lot Microtech Sure Clip Implanted:Qty: 2 on 06/03/2020 by Janis Hatch DO at OR [facility] Clip N/A: Colon 04/21/2022 [facility]-F-26-2 35-C-R / / [id number] documented as of this encounter Advance Directives Documents on File Type Date Recorded Patient Interior Design Coordinator 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 Agents on File Name Relationship Healthcare Agent Romainia navya Communication Syed Butsos Spouse Emergency Contact
--- OUTSIDE RECORDS SUMMARY | 2023-05-10 20:25 | External Medical Summary ---
Author Name Unknown Address Unknown Organization K01:[facility] [place] - [address] [place] [address] Laboratory Report Ordering Provider Test Date Status JACOB WOODARD 05/25/2021 11:17:12 Final Observation Date Value Abnormality Reference (Units ) Status BUN 05/25/2021 11:17:12 12 6-20 (mg/dL) Final Creatinine 05/25/2021 11:17:12 0.7 0.5-1.0 (mg/dL) Final Glomerular filtration rate/1.73 sq M.predicted [Volume Rate/Area] in Serum, Plasma or Blood by Creatinine-based formula (CKD-EPI) 05/25/2021 11:17:12 >90.0 >=60.0 (mL/min) Final Performing Location [facility] [place] - [address] [facility] [address]
--- OUTSIDE RECORDS SUMMARY | 2023-05-10 20:26 | External Medical Summary | Summary of Care ---
Author Name Unknown Organization [facility] Address [place] [address] Care Team Providers Care Fire Extinguisher Mechanic Name Role Phone Vanita Dunn MD Primary Care Provid er Reason for Visit * Reason Onset Date Comments Advice 05/18/2021 Status Check 05/19/2021 Status Check 05/18/2021 Encounter Details Date Type Department Care Team Description 05/18/2021 Telephone [facility] [address] [place] [address] Vanita Dunn MD [address] [place] [address] Advice; Status Check; Status Check [...] 120 Vial 11 10/02/2019 Active nystatin (NYSTOP) 940394 UNIT/GM powder Apply topically to affected area [...] Each 3 07/27/2020 Active Dexcom G6 Slot Floor Supervisor Device Use as directed. To test [...] TO ACCESSING. 30 g 3 10/09/2020 Active CE[employer] Innovations Verio In Vitro Strip (Glucose Blood) TESTING once daily 100 Strip 3 10/29/2020 Active OneTouch Delica Plus [id number] TESTING once daily 100 Each 3 10/29/2020 [...] Active Additional Information Patient taking differently: 2 [place] Nasal DAILY PRN, Congestion, Informant: Pharmacy, Reported [...] failure 04/08/2019 04/18/2019 Oxygen dependent 04/08/2019 04/18/2019 residential resident 04/08/2019 05/02/2019 Fall 04/04/2019 05/05/2020 Sprain [...] pain 01/24/2012 01/17/2017 Genetic Sleep Disorder Research Other*[id number] 05/13/2011 04/07/2016 Obstructive sleep apnea 01/18/2011 12/27/19 [...] Miscellaneous Notes * Telephone Encounter - Alberta Shaw OSA [...] PM EDT Spoke to patient She said [facility] and order faxed to them Phone number is [phone] Patient does not have fax number Francisca Yuri Can you adapt notes from 04/05/2021 and send back for us to Farncisca Spoke to Stephanie Referral Needs chart note Why Head of Bed needs elevated And why patient needs frequent position changes Fax to above * Telephone Encounter - Rajwinder Niño PHARM Tech - 05/20/2021 9:10 AM EDT pt calling to check on status of hospital bed Thank you, Rajwinder Niño Birdcage Assembler [employer]pharmacy 05/20/2021, 9:10 AM * Telephone Encounter - [...] be faxed somewhere? If so, where?: Yes, [facility] Fax Number, if applicable: [phone] Call Back Number: [phone] This order was faxed already 04/06/2021 * Telephone Encounter - Ammy Guadarrama OSA - 05/19/2021 11:31 AM EDT Patient calling in to check on the status of previous message. * Telephone Encounter - Deisy Estevez OSA - 05/18/2021 5:17 PM EDT Cecy, Patient called questioning whether a hospital bed had been authorized/ordered for her. Please advise. Thank you, THAD Cheng documented in this encounter Plan of Treatment Upcoming Encounters Date Type Specialty Care Team Description 05/25/2021 Office Visit Family Vanita Carpio MD [address] [place] [address] 05/26/2021 Office Visit Cardiology Mega Hagen MD [address] [place] [address] [phone] 06/02/2021 Office Visit Pharmacy [facility] [address] [place] [address] 06/03/2021 Telemedicine Palliative Medicine Esperanza Painter MD [address] [place] [address] 06/07/2021 Nutrition Services Gastroenterology Melissa Omalley RDN [address] [place] [address] [phone] 06/11/2021 Office Visit Podiatry Prakash Martino DPM [address] [place] [address] 06/14/2021 Office Visit Family Medicine Vanita Dunn MD [address] [place] [address] 07/02/2021 Immunization/Injection Hematology Oncolog y Nurse, Med 4 [address] [place] [address] [phone] 07/06/2021 Office Visit Hematology Oncology Tono Sanchez MD [address] [place] [address] [phone] 07/22/2021 Office Visit Pulmonary Reynaldo Marquez MD [address] [facility] [place] [id number] 07/27/2021 Office Visit Gastroenterology Lyssa Stout CRNP 132 [facility] [place] [address] [phone] 09/09/2021 Imaging Radiology Health Maintenance Due Date [...] of this encounter Implants Implanted Type Area Greige Goods Examiner Device Identifier Shelf Expiration Date Model / Serial / Lot Microtech Sure Clip Implanted:Qty: 2 on 06/03/2020 by Janis Hatch DO at OR [facility] Clip N/A: Colon 04/21/2022 [facility]-F-26-2 35-C-R / / [id number] documented as of this encounter Advance Directives Documents on File Type Date Recorded 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
--- OUTSIDE RECORDS SUMMARY | 2023-05-10 20:26 | External Medical Summary ---
Author Name Unknown Address Unknown Organization K01:LAB[facility]ATORY [facility] [place] [address] [place] [address] Laboratory Report Ordering Provider Test Date Status JAG HAM 05/22/2021 01:36:00 Final Observation Date Value Abnormality Reference (Units ) Status Troponin T 05/22/2021 01:36:00 10 <=14 (ng/ L) Final Performing Location LABORATORY C - [address] [place] [address]
--- OUTSIDE RECORDS SUMMARY | 2023-05-10 20:26 | External Medical Summary ---
Author Name Unknown Address Unknown Organization K01:LABORATORY [facility] [place] - [address] [facility] [place] [address] Laboratory Report Ordering Provider Test Date Status JAG HAM 05/22/2021 01:35:00 Final Observation Date Value Abnormality Reference (Units ) Status SYNC LEUKOCYTES IN BLOOD BY AUTOMATED COUNT 05/22/2021 01:35:00 3.48 Below low normal 4.00-10.80 (K/uL) Final Segs 05/22/2021 01:35:00 56.6 40.0-75.0 (%) Final Lymphs % 05/22/2021 01:35:00 24.4 18.0-42.0 (%) Final Monos 05/22/2021 01:35:00 11.5 Above high normal 1.0-11.0 (%) Final Eosinophils 05/22/2021 01:35:00 6.0 0.0-6.0 (%) Final Basos 05/22/2021 01:35:00 0.9 0.0-2.0 (%) Final Immature Granulocyte, Percent 05/22/2021 01:35:00 0.6 0.0-2.0 (%) Final Absolute Segs 05/22/2021 01:35:00 1.97 1.80-7.70 (K/uL) Final Lymphs, absolute 05/22/2021 01:35:00 0.85 Below low normal 1.00-4.80 (K/ul) Final Monos, Abs 05/22/2021 01:35:00 0.40 0.00-1.10 (K/uL) Final Eos, Abs 05/22/2021 01:35:00 0.21 0.00-0.70 (K/uL) Final Basos, Abs 05/22/2021 01:35:00 0.03 0.00-0.20 (K/uL) Final Immature Granulocytes, Number 05/22/2021 01:35:00 0.02 0.00-0.20 (K/uL) Final Performing Location LABORATORY [facility] [place] - [facility] [place] [address]
--- OUTSIDE RECORDS SUMMARY | 2023-05-10 20:26 | External Medical Summary ---
Author Name Unknown Address Unknown Organization K01:LABORATORY [facility] [place] - [address] [place] [address] Laboratory Report Ordering Provider Test Date Status JITENDRAJAG 05/22/2021 01:36:00 Final Observation Date Value Abnormality Reference (Units ) Status BUN 05/22/2021 01:36:00 10 6-20 (mg/dL) Final Creatinine 05/22/2021 01:36:00 0.7 0.5-1.0 (mg/dL) Final Glomerular filtration rate/1.73 sq M.predicted [Volume Rate/Area] in Serum, Plasma or Blood by Creatinine-based formula (CKD-EPI) 05/22/2021 01:36:00 >90.0 >=60.0 (mL/min) Final Performing Location LABORATORY [facility] [place] - [address] [facility] [address]
--- OUTSIDE RECORDS SUMMARY | 2023-05-10 20:26 | External Medical Summary ---
Author Name Unknown Address Unknown Organization K01:LABORATORY [facility] [place] - [address] [place] [address] Laboratory Report Ordering Provider Test Date Status JAG HAM 05/22/2021 01:35:00 Final Observation Date Value Abnormality Reference (Units ) Status WBC, Total 05/22/2021 01:35:00 3.48 Below low normal 4.00-10.80 (K/uL) Final RBC 05/22/2021 01:35:00 2.70 Below low normal 3.85-5.15 (M/uL) Final Hemoglobin 05/22/2021 01:35:00 8.6 Below low normal 12.0-15.3 (g/dL) Final HCT 05/22/2021 01:35:00 29.3 Below low normal 36.0-45.2 (%) Final MCV 05/22/2021 01:35:00 108.5 Above high normal 81.5-97.5 (fL) Final MCH 05/22/2021 01:35:00 31.9 27.0-34.0 (pg) Final MCHC 05/22/2021 01:35:00 29.4 Below low normal 32.0-36.0 (g/dL) Final RDW 05/22/2021 01:35:00 20.5 Above high normal 11.5-15.5 (%) Final MPV 05/22/2021 01:35:00 13.0 Above high normal 6.6-11.1 (fL) Final Nucleated erythrocytes/100 leukocytes [Ratio] in Blood by Automated count 05/22/2021 01:35:00 0 <=0 (/100 WBCs) Final Platelets 05/22/2021 01:35:00 94 Below low normal 140-400 (K/uL) Final Performing Location LABORATORY [facility] [place] - [address] [place] [address]
--- OUTSIDE RECORDS SUMMARY | 2023-05-10 20:26 | External Medical Summary ---
Author Name Unknown Address Unknown Organization K01:LABORATORY [facility] [place] - [address] [place] [address] Laboratory Report Ordering Provider Test Date Status JAG HAM 05/22/2021 01:35:00 Final Observation Date Value Abnormality Reference (Units ) Status Macrocytes [Presence] in Blood by Light microscopy 05/22/2021 01:35:00 Present Abnormal None Seen Final Polychromasia [Presence] in Blood by Light microscopy 05/22/2021 01:35:00 Slight Abnormal None Seen Final Target cells [Presence] in Blood by Light microscopy 05/22/2021 01:35:00 Few Abnormal None Seen Final Performing Location LABORATORY [facility] [place] - [address] [place] [address]
--- OUTSIDE RECORDS SUMMARY | 2023-05-10 20:27 | External Medical Summary | Summary of Care ---
Author Name Unknown Organization [facility] Address [place] [address] Care Team Providers Care Cuprous Chloride Helper Name Role Phone Vanita Dunn MD Primary Care Provid er Reason for Visit * Reason Onset Date Comments Advice 05/18/2021 Status Check 05/19/2021 Status Check 05/18/2021 Encounter Details Date Type Department Care Team Description 05/18/2021 Telephone [facility] [address] [place] [address] Vanita Dunn MD [address] [place] [address] Advice; Status Check; Status Check Allergies Active Allergy Reactions Severity Noted Date Comments Adhesive Tape Itching 04/29/2020 Penicillins Rash 02/12/2008 Perflutren Protein A Microsph 2019 Definity-lower back pain documented as of this encounter (statuses as of 05/21/2021) Medications Medication Sig Dispensed Refills Start Date [...] 120 Vial 11 10/02/2019 Active nystatin (NYSTOP) 857952 UNIT/GM powder Apply topically to affected area [...] 60 Each 3 07/27/2020 Active Dexcom G6 Abalone Sheller Device Use as directed. To test blood [...] TO ACCESSING. 30 g 3 10/09/2020 Active Gravity Powerplants Verio In Vitro Strip (Glucose Blood) TESTING once daily 100 Strip 3 10/29/2020 Active OneTouch Delica Plus [id number] TESTING once daily 100 Each 3 10/29/2020 [...] Active Additional Information Patient taking differently: 2 [place] Nasal DAILY PRN, Congestion, Informant: Pharmacy, Reported [...] as of this encounter (statuses as of 05/21/2021) Active Problems Problem Noted Date Food insecurity [...] as of this encounter (statuses as of 05/21/2021) Resolved Problems Problem Noted Date Resolved Date [...] pain 01/24/2012 01/17/2017 Genetic Sleep Disorder Research Other*[id number] 05/13/2011 04/07/2016 Obstructive sleep apnea 01/18/2011 12/27/19 [...] as of this encounter (statuses as of 05/21/2021) Immunizations Name Administration Dates Next Due COVID-19 [...] Miscellaneous Notes * Telephone Encounter - Jovana Lambert RN [...] order faxed to them Phone number is [phone] Patient does not have fax number Francisca Welch Can you adapt notes from 04/05/2021 and send back for us to Francisca Spoke to Bricelyn Referral Needs chart note Why Head of Bed needs elevated And why patient needs frequent position changes Fax to above * Telephone Encounter - Rajwinder Niño PHARM Tech - 05/20/2021 9:10 AM EDT pt calling to check on status of hospital bed Thank you, Rajwinder Niño [email or web address] [facility] 05/20/2021, 9:10 AM * Telephone Encounter - Kiesha Schmitt LPN - 05/19/2021 3:56 PM EDT Pt states [facility] must have an order to ship the [...] be faxed somewhere? If so, where?: Yes, [facility] Fax Number, if applicable: [phone] Call Back Number: [phone] This order was faxed already 04/06/2021 * [...] Encounters Date Type Specialty Care Team Description 05/21/2021 Immunization/Injection Hematology Oncolog y Nurse, Med 4 [address] [place] [address] [phone] 05/26/2021 Office Visit Cardiology Mega Hagen MD [address] [place] [address] [phone] 06/02/2021 [facility] [address] [place] [address] 06/03/2021 Telemedicine Palliative Medicine Esperanza Painter MD [address] [place] [id number] 06/07/2021 Nutrition Services Gastroenterology Melissa Omalley RDN [address] [place] [address] [phone] 06/11/2021 Office Visit Podiatry Prakash Martino, [facility] [address] [place] [address] 06/14/2021 Office Visit Family Medicine Vanita Dunn MD [address] [place] [address] 07/06/2021 Office Visit Hematology Oncology Tono Sanchez MD [address] [facility] [place] [address] [phone] 07/22/2021 Office Visit Pulmonary Reynaldo Marquez MD [address] [place] [facility] [address] [phone] 07/27/2021 Office Visit Gastroenterology Lyssa Stout, [facility] [address] [place] [address] [phone] 09/09/2021 Imaging Radiology Health Maintenance Due Date [...] of this encounter Implants Implanted Type Area Farm Equipment Service Technician Device Identifier Shelf Expiration Date Model / Serial / Lot Microtech Sure Clip Implanted:Qty: 2 on 06/03/2020 by Janis Hatch DO at OR [facility] Clip N/A: Colon 04/21/2022 [facility]-F-26-2 35-C-R / / [id number] documented as of this encounter Advance Directives Documents on File Type Date Recorded Patient Property Claim Rep 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 on File Name Relationship Healthcare [facility] Communication Syed Bustos Spouse Emergency Contact
--- OUTSIDE RECORDS SUMMARY | 2023-05-10 20:27 | External Medical Summary | Summary of Care ---
Author Name Unknown Organization [facility] Address [place] [address] Care Team Providers Care Freelance Makeup Artist Name Role Phone Vanita Dunn MD Primary Care Provid er Reason for Visit * Reason Comments Procedure port flush Encounter Details Date Type Department Care Team Description 05/21/2021 Immunization/In jection Hematology/Oncology Treatment, [place] [address] [place] [address] Nurse, Med [address] [place] [id number] Iron deficiency anemia due to chronic blood [...] 120 Vial 11 10/02/2019 Active nystatin (NYSTOP) 572453 UNIT/GM powder Apply topically to affected area [...] 60 Each 3 07/27/2020 Active Dexcom G6 Assistant Track Coach Device Use as directed. To test blood [...] Strip 3 10/29/2020 Active OneTouch Delica Plus [id number] TESTING once daily 100 Each 3 10/29/2020 [...] than 7.0% ([facility]) Use to inject insulin four times daily; E11.42 400 Each 3 12/05/2020 Active Fluticasone Propionate 50 MCG/ACT Nasal Suspension (Flonase)Indications :Sinus congestion USE 2 SPRAYS IN EACH NOSTRIL ONCE DAILY as directed 16 g 5 12/23/2020 Active Additional Information Patient taking differently: 2 [place] Nasal DAILY PRN, Congestion, Informant: Pharmacy, Reported [...] breath) 01/30/2021 Uncontrolled type 2 diabetes mellitus [facility] hyperglycemia 07/15/2020 Esophagitis 07/06/2020 Esophageal [...] pain 01/24/2012 01/17/2017 Genetic Sleep Disorder Research Other*[id number] 05/13/2011 04/07/2016 Obstructive sleep apnea 01/18/2011 12/27/19 [...] encounter Nursing Notes * Dulce Montes De Oca, RN - 05/21/2021 3:34 PM EDT VAD (Venous Access Device) accessed with #[email or web address]/" without difficulty. VAD flushed with 10 ml NSS and Heparin 5 ml (100 units/ml). Mason needle removed intact. Patient tolerated treatment well and was discharged in stable condition. documented in this encounter Plan of Treatment Upcoming Encounters Date Type Specialty Care Team Description 05/26/2021 Office Visit Cardiology Mega Hagen MD [address] [place] [address] [phone] 06/02/2021 Office Visit Pharmacy [facility] [address] [place] [address] 06/03/2021 Telemedicine Palliative Medicine Esperanza Painter MD [address] [place] [address] 06/07/2021 Nutrition Services Gastroenterology Melissa Omalley RDN [address] [place] [address] 06/11/2021 Office Visit Podiatry Prakash Martino, [facility] [address] [place] [address] 06/14/2021 Office Visit Family Medicine Vanita Dunn MD [address] [place] [address] 07/02/2021 Immunization/Injection Hematology Oncolog y Nurse, Med 4 [address] [facility], [place] [address] [phone] 07/06/2021 Office Visit Hematology Oncology Tono Sanchez MD [address] [facility], [place] [address] [phone] 07/22/2021 Office Visit Pulmonary Reynaldo Marquez MD [address] [place] [address] 07/27/2021 Office Visit Gastroenterology Lyssa Stout CRNP [address] [place] [address] [phone] 09/09/2021 Imaging Radiology Health Maintenance Due Date [...] of this encounter Implants Implanted Type Area Client Associate Device Identifier Shelf Expiration Date Model / Serial / Lot Microtech Sure Clip Implanted:Qty: 2 on 06/03/2020 by Janis Hatch DO at OR [facility] Clip N/A: Colon 04/21/2022 [facility]-F-26-2 35-C-R / / [id number] documented as of this encounter Visit Diagnoses [...] IV Lock, PRN Other, IV Flush, Starting 05/21/21 at 1514, Until 05/22/21 at 1513, For 24 hours, Do not flush if lock, PICC, or central line not in place; IV infusing or unable to flush., Given 05/21/2021 3:18 PM EDT 500 Units sodium chloride 0.9% flush/inj 10 mL 10 mL, IV Push, PRN Other, IV Flush, Starting 05/21/21 at 1514, Until 05/22/21 at 1513, For 24 hours, Do not flush if lock, PICC, or central line not in place; IV infusing or unable to flush., Given 05/21/2021 3:17 PM EDT 10 mL documented in this encounter Advance Directives Documents on File Type Date Recorded Patient 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
--- OUTSIDE RECORDS SUMMARY | 2023-05-10 20:27 | External Medical Summary | Summary of Care ---
Author Name Unknown Organization [facility] Address [place] [address] Care Team Providers Care Process Control Programmer Name Role Phone Vanita Dunn MD Primary Care Provid er Reason for Visit * Reason Onset Date Comments Advice 05/18/2021 Status Check 05/19/2021 Status Check 05/18/2021 Encounter Details Date Type Department Care Team Description 05/18/2021 Telephone [facility] [address] [place] [address] Vanita Dunn MD [address] [place] [address] Advice; Status Check; Status Check [...] 120 Vial 11 10/02/2019 Active nystatin (NYSTOP) 591771 UNIT/GM powder Apply topically to affected area [...] 60 Each 3 07/27/2020 Active Dexcom G6 Inside Sales Person Device Use as directed. To test [...] TO ACCESSING. 30 g 3 10/09/2020 Active Lolay Verio In Vitro Strip (Glucose Blood) TESTING once daily 100 Strip 3 10/29/2020 Active OneTouch Delica Plus [id number] TESTING once daily 100 Each 3 10/29/2020 [...] Active Additional Information Patient taking differently: 2 [place] Nasal DAILY PRN, Congestion, Informant: Pharmacy, Reported [...] pain 01/24/2012 01/17/2017 Genetic Sleep Disorder Research Other*[id number] 05/13/2011 04/07/2016 Obstructive sleep apnea 01/18/2011 12/27/19 [...] EDT note addended - please fax Brianne Pla PA-C 05/21/2021 8:23 AM * Telephone Encounter - Jovana Lambert, [facility] - 05/20/2021 12:20 PM EDT Spoke to patient She said [facility] OV and order faxed to them Phone number is [phone] Patient does not have fax number Francisca [...] of hospital bed Thank you, Rajwinder Niño Disability Counselor [facility] Telepharmacy 05/20/2021, 9:10 AM * Telephone Encounter [...] be faxed somewhere? If so, where?: Yes, [facility] Fax Number, if applicable: [phone] Call Back Number: [phone] This order was faxed already 04/06/2021 * [...] Hematology Oncolog y Nurse, Med 4 [address] [place] [address] [phone] 05/26/2021 Office Visit Cardiology Mega Hagen MD [address] [place] [address] [phone] 06/02/2021 Office Visit Pharmacy [facility] [address] [place], [place] [address] 06/03/2021 Telemedicine Palliative Medicine Esperanza Painter MD [address] [place] [address] 06/07/2021 Nutrition Services Gastroenterology Melissa Omalley RDN [address] [place] [address] [phone] 06/11/2021 Office Visit Podiatry Prakash Martino, [facility] [address] [place] [address] 06/14/2021 Office Visit Family Medicine Vanita Dunn MD [address] [place] [address] [phone] 07/06/2021 Office Visit Hematology Oncology Tono Sancehz MD [address] [place] [address] [phone] 07/22/2021 Office Visit Pulmonary Reynaldo Marquez MD [address] [place] [address] [phone] 07/27/2021 Office Visit Gastroenterology Lyssa Stout CRNP [address] [place] [address] [phone] 09/09/2021 Imaging Radiology Health Maintenance Due Date [...] of this encounter Implants Implanted Type Area City Superintendent Of Schools Device Identifier Shelf Expiration Date Model / Serial / Lot Microtech Sure Clip Implanted:Qty: 2 on 06/03/2020 by Janis Hatch DO at OR [facility] Clip N/A: Colon 04/21/2022 [facility]-F-26-2 35-C-R / / [id number] documented as of this encounter Advance Directives Documents on File Type Date Recorded Patient Salvage Grinder 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 on File Name Relationship Healthcare Agent [facility] p Communication Syed Bustos Spouse Emergency Contact
--- OUTSIDE RECORDS SUMMARY | 2023-05-10 20:28 | External Medical Summary | Summary of Care ---
Author Name Unknown Organization [facility] [place] [address] Care Team Providers Care Shipbuilding Draftsperson Name Role Phone Vanita Dunn MD Primary Care Provid er Reason for Visit * Reason Onset Date Comments Advice 05/18/2021 Status Check 05/19/2021 Status Check 05/18/2021 Encounter Details Date Type Department Care Team Description 05/18/2021 Telephone [facility] [address] [place] [address] Vanita Dunn MD [address] [place] [address] Advice; Status Check; Status Check Allergies Active Allergy Reactions Severity Noted Date Comments Adhesive Tape Itching 04/29/2020 Penicillins Rash 02/12/2008 Perflutren Protein A Microsph 2019 Definity-lower back pain documented as of this encounter (statuses as of 05/20/2021) Medications Medication Sig Dispensed Refills Start Date [...] 120 Vial 11 10/02/2019 Active nystatin (NYSTOP) 677703 UNIT/GM powder Apply topically to affected area [...] 60 Each 3 07/27/2020 Active Dexcom G6 Walnut Dehydrator Operator Device Use as directed. To test [...] TO ACCESSING. 30 g 3 10/09/2020 Active Brightstar Verio In Vitro Strip (Glucose Blood) TESTING once daily 100 Strip 3 10/29/2020 Active OneTouch Delica Plus [id number] TESTING once daily 100 Each 3 10/29/2020 [...] Active Additional Information Patient taking differently: 2 [place] Nasal DAILY PRN, Congestion, Informant: Pharmacy, Reported [...] as of this encounter (statuses as of 05/20/2021) Active Problems Problem Noted Date Food insecurity [...] as of this encounter (statuses as of 05/20/2021) Resolved Problems Problem Noted Date Resolved Date [...] pain 01/24/2012 01/17/2017 Genetic Sleep Disorder Research Other*[id number] 05/13/2011 04/07/2016 Obstructive sleep apnea 01/18/2011 12/27/19 [...] as of this encounter (statuses as of 05/20/2021) Immunizations Name Administration Dates Next Due COVID-19 [...] Miscellaneous Notes * Telephone Encounter - Rajwinder Niño PHARM Tech - 05/20/2021 9:10 AM EDT pt calling to check on status of hospital bed Thank you, Rajwinder Niño Aged Or Disabled [employer] [facility] 05/20/2021, 9:10 AM * Telephone Encounter [...] for this patient. Name of Requesting Provider: [facility] Order Requested: Hospital Bed Diagnosis/Reason for Request: Cerebral Palsy Does the order need to be faxed somewhere? If so, where?: Yes, [facility] Fax Number, if applicable: [phone] Call Back Number: [phone] This order was faxed already 04/06/2021 * [...] Oncolog y Nurse, Med [address] [place] [address] [phone] 05/26/2021 Office Visit Cardiology Mega Hagen MD 132 [facility] [place] [address] [phone] 06/02/2021 Office Visit Pharmacy [address] [address] [phone] 06/03/2021 Telemedicine Palliative Medicine Esperanza Painter MD [address] [place] [address] 06/07/2021 Nutrition Services Gastroenterology Melissa Omalley RDN 132 [facility] [place] [address] [phone] 06/11/2021 Office Visit Podiatry Prakash Martino, DPM [address] [place] [address] 06/14/2021 Office Visit Family Medicine Vanita Dunn MD [address] [place] [address] [phone] 07/06/2021 Office Visit Hematology Oncology Tono Sanchez MD 200 [facility] [address] [phone] 07/22/2021 Office Visit Pulmonary Reynaldo Marquez MD [address] [place] [address] 07/27/2021 Office Visit Gastroenterology Lyssa Stout CRNP [address] [place] [address] [phone] 09/09/2021 Imaging Radiology Health Maintenance Due Date [...] of this encounter Implants Implanted Type Area Podiatry Doctor Device Identifier Shelf Expiration Date Model / Serial / Lot Microtech Sure Clip Implanted:Qty: 2 on 06/03/2020 by Janis Hatch DO at OR [facility] Clip N/A: Colon 04/21/2022 [facility]-F-26-2 35-C-R / / [id number] documented as of this encounter Advance Directives Documents on File Type Date Recorded Patient Curtain Fitter 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 Name Relationship Healthcare Agent [facility] Communication Syed Bustos Spouse Emergency Contact
--- OUTSIDE RECORDS SUMMARY | 2023-05-10 20:28 | External Medical Summary | Summary of Care ---
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 Encounter Details Date Type Department Care Team Description 04/05/[address] [facility] [address] [place] [address] Brianne Pal PA-C [address] [place] [address] Hospital discharge follow-up*; Type 2 diabetes mellitus with hemoglobin A1c goal of less than 7.0% ([facility]); Recurrent major depressive disorder, in partial remission (HCC); Urinary catheter dysfunction, initial encounter ([facility]); Ambulatory dysfunction; Spastic quadriplegic cerebral palsy ([facility]); Alcoholic cirrhosis of liver without ascites ([facility]); HTN, goal below 140/90; Wheeze; Bilateral impacted cerumen Allergies Active Allergy Reactions Severity Noted Date [...] 120 Vial 11 0 Active nystatin (NYSTOP) 167311 UNIT/GM powder Apply topically to affected area [...] 60 Each 3 0 Active Dexcom G6 Bulk Mail Technician Device Use as directed. To test [...] once daily 100 Strip 3 1 Active RightAnswersTouch Delica Plus [id number] TESTING once daily 100 Each 3 1 [...] of less than 7.0% ([facility]) Use to inject insulin four times daily; E11.42 400 Each 3 1 Active Fluticasone Propionate 50 MCG/ACT Nasal Suspension (Flonase)Indicati ons:Sinus congestion USE 2 SPRAYS IN EACH NOSTRIL ONCE DAILY as directed 16 g 5 1 Active Additional Information Patient taking differently: 2 [place] Nasal DAILY PRN, Congestion, Informant: Pharmacy, Reported [...] mouth daily. 30 Tab 5 1 Active Lactulose 20 GM/30ML Oral Solution (Constulose) Take 67.5 mL by mouth 3 times a day. Titrate to have 3 to 4 bowel movement every day. 2700 mL 2 1 Active Potassium Chloride Selena ER 10 MEQ Oral Tablet Extended Release Take 10 mEq by mouth daily at noon. 0 Active Furosemide 20 MG Oral Tablet (Lasix) Take 1 Tab by mouth daily as needed. EDEMA 0 1 Active NovoLOG FlexPen 100 UNIT/ML Subcutaneous Solution Pen-injector Inject under the skin three times a day before meals. Sliding scale 0 1 Active Nadolol 20 MG Oral Tablet (CORGARD)Indicati ons:HTN, goal below 140/90 One daily 90 Tab 1 1 05/11/20 21 Discontinued(Ref ill) Oxybutynin Chloride 5 MG Oral Tablet (Ditropan) TAKE 1 TABLET BY MOUTH TWICE DAILY 60 Tab 5 1 05/13/20 21 Discontinued Gabapentin 300 MG Oral Capsule (Neurontin) TAKE 1 CAPSULE BY MOUTH EVERY MORNING, 1 CAPSULE MIDDAY AND 2 CAPSULES IN THE EVENING 180 Cap 5 1 05/13/20 21 Discontinued Spironolactone 25 MG Oral Tablet (Aldactone) Take 0.5 Tabs by mouth daily. 30 Tab 5 1 05/11/20 21 Discontinued(Ref ill) Lantus SoloStar 100 UNIT/ML Subcutaneous Solution Pen-injector (Insulin Glargine)Indicati ons:Type 2 diabetes mellitus with hemoglobin A1c goal of less than 7.0% (HCC) inject 32 units under skin at bedtime 30 mL 3 1 04/07/20 21 Discontinued traMADol HCl 50 MG Oral Tablet (Ultram)Indicatio ns:Abdominal pain, left lower quadrant Take 1 Tab by mouth every 12 hours as needed for Pain, Moderate for up to 30 days. 60 Tab 0 1 04/29/20 21 documented as of this encounter (statuses as of 05/21/2021) Active Problems Problem Noted Date Food insecurity 04/19/2021 Overview: Per [facility] Protocol Lactic acidosis 03/22/2021 Portal hypertensive gastropathy 03/16/20 Anginal chest pain at rest 02/20/2021 Acute [...] pain 01/24/2012 01/17/2017 Genetic Sleep Disorder Research Other*[id number] 05/13/2011 04/07/2016 Obstructive sleep apnea 01/18/2011 12/27/19 [...] Reading Time Taken Comments Blood Pressure 124/62 04/05/2021 12:35 PM EDT Pulse 72 04/05/2021 12:35 PM EDT Temperature 36.1 C (97 F) 04/05/2021 12:35 PM EDT Respiratory Rate 16 04/05/2021 12:35 PM EDT Oxygen Saturation 98% 04/05/2021 12:35 PM EDT Inhaled Oxygen Concentration - - [...] this encounter Patient Instructions * Patient Instructions* Natali Janett, DEVAN - 04/05/2021 12:33 PM EDT Diabetes: Keeping Feet Healthy Inspect your feet every day for signs of a problem. Diabetes can damage nerves in your feet and cause neuropathy. This condition makes it hard for you to feel injuries or sore spots. Diabetes can also change blood flow, making it harder for small problems, like a blister, to heal properly. In fact, minor injuries can quickly become serious infections that send you to the hospital. Practice self-care to protect your feet and keep them healthy. Take Special Care Inspect your feet daily for problems such as redness, blisters, cracks, dry skin, or numbness. Use a mirror to see the bottoms of your feet. Or, ask for help. Manage your diabetes. Monitor and control your blood sugar. Take all your medications as prescribed. Avoid walking barefoot, even indoors. Wash your feet with warm water and mild soap. Dry well, especially between toes. Dont treat corns or calluses yourself. Talk to your doctor or pca (a doctor who specializes in foot care) if you need assistance trimming your toenails. Use moisturizing cream or lotion if you have dry skin, but dont use it between toes. Dont use heating pads on your feet. If you have neuropathy, you could get a burn and not feel it. Stop smoking. Smoking restricts blood flow and can make it harder for wounds to heal. Have Regular Checkups Foot problems can develop quickly. So be sure to follow your healthcare teams schedule for regular checkups. During office visits, take off your shoes and socks as soon as you get in the exam room. Ask your healthcare provider to examine your feet for problems. This will make it easier to find and treat small skin irritations before they get worse. Regular checkups can also help keep track of the blood flow and feeling in your feet. If you have neuropathy, you may need to have checkups more often. Wear Proper Footwear Wearing proper footwear is very important. If areas of your feet have been damaged by too much pressure, your healthcare provider may recommend changing your footwear. In some cases, avoiding high heels or tight work boots may be all thats needed. Or, your healthcare provider may recommend special shoes or custom inserts. These help protect your feet and keep existing irritations from getting worse. If you need special footwear, ask your healthcare provider if you qualify for [facility] diabetic shoe program. Make Sure Shoes and Socks Fit Any pair of shoesnew or oldshould feel comfortable as soon as you put them on. There shouldnt be any rubbing when you walk. Wear the right shoe for any activity. For instance, a running shoeis designed to keep your feet injury-free while jogging. Buy shoes at the end of the day, when yourfeet are larger. Make sure they provide support without feeling too loose. Make sure your socks fit, too. Wear soft, seamless, well-padded socks for activity. Cotton or microfiber socks are best to help to absorb sweat. To protect your feet, avoid shoes that are open-toed or open-heeled. If you have questions about what kinds of shoes and socks are best, talk to your healthcare team. Get Regular Exercise Regular exercise improves blood flow in your feet. It also increases foot strength and flexibility.Gentle exercises, like walking or riding a stationary bicycle, are best. You can also do special foot exercises. Just be sure to talk with your healthcare provider before starting any exercise program. Also mention if any exercise causes pain, redness, or other signs of foot problems. Note: If you have any kind of break in the skin of your foot or ankle, keep the area clean. Then call your doctorespecially if the area doesnt appear to be healing. [id number] [employer], [address] [place] [address], [place] [address]. All rights reserved. This information is not intended as a substitute for professional medical care. Always follow your healthcare professional's instructions. documented in this encounter Progress Notes * Brianne Pal PA-C - 05/21/2021 8:21 AM EDT Addendum: Pt should have head of bed raised at home in order to help her with her breathing (orthopnea) as well as to prevent any aspiration from GERD Pt ambulates via wheelchair as she has sig leg weakness and cannot walk unassisted. As such, she requires frequent position changes to prevent bed sores. Brianne Pal PA-C 05/21/2021 8:22 AM * Brianne Pal PA-C - 04/05/2021 12:40 PM EDT Subjective Shaina Bustos is a 65 year old female that presents for Hospital Follow-Up (was in [facility]. ) HPI: Here for hospital follow up. Was to [facility] on 03/31/2021. Admitted from ER for abd pain. [place]land to be somewhat constipated. This is an ongoing issue for her. She had urinary symptoms aswell with some culture proven infection. She is taking her abx - hubby tells me that he had to fight with her to take her medication. No fever this weekend. BG was elevated as well. This is ongoing issue for her. Culture Growth >100,000 colonies/mL Staphylococcus aureus MRSA, This patient may require isolation.Abnormal Resulting Agency: Susceptibility Staphylococcus aureus MRSA, This patient may require isolation. MICROBROTH DILUTIONS (Preliminary) Nitrofurantoin Susceptible Oxacillin Resistant1 Penicillin G Resistant Tetracycline Susceptible Trimeth/Sulfamethoxazole Susceptible Vancomycin Susceptible constipation is improved. She is going right now. Pain comes and goes. Patient is wheelchair bound- she is in bed a lot due to her comorbidities. (cerebral palsy with ambulatory dysfunction. She would like a hospital bed for home use. This would help her be more comfortable at home, especially when she is bed bound. (This tends to happen when bowels are bound up and she has to take lactulose for bm - she ends up in bed on the bed castillo as she is not mobile enough to make it to the restroom in time and get in and out of her chair. Sugar is low during her visit. Past Medical History: Diagnosis Date Cerebral palsy (HCC) 01/24/2012 Chronic constipation Chronic hypoxemic respiratory failure (HCC) 04/08/2019 Chronic pain 03/27/2012 Cirrhosis of liver ([facility]) 11/20/2017 DDD (degenerative disc disease), lumbar DM [...] of less than 7.0% ([facility]) 09/26/2013 ICD-10 update of inactive term Extensive ROS Constitutional (f/c/wt/vision/hearing): Negative Resp (cough/sob/whiting): active wheeze here - all up in her bronchial tubes, cannot cough junk up easily even when she has a cough - using advair, she uses Neb on occasion. She tends to not want to use this - hubby feels that if she does not hold it level, she does not get it all. CV (cp/palp/fluttering/diaphoresis/whiting/pnd):ongoing occasional chest pain GI (n/v/d/hrtburn): see above hpi Endo (hair/cold or heat intol/ 3 p's): see above hpi Neuro (shaking/weak/fatigu/parasthesi/): Negative Skin (rash/easy bruis/xerosis): Negative Psy (si/hi/halluc/): Negative (nocturia/hesit/drib/sexual review): Negative - no current sx Lymph (swollen glands/b sx's/: Negative Objective BP 124/62 | Pulse 72 | Temp 36.1 C (97 F) (Tympanic) | Resp 16 | SpO2 98% There is no height or weight on file to calculate BMI. BP Readings from Last 3 Encounters: 04/05/21 124/62 04/03/21 126/86 03/29/21 106/62 Wt Readings from Last 3 Encounters: 04/03/21 126.1 kg (278 lb) 03/24/21 120.9 kg (266 lb 9.6 oz) 03/11/21 124.8 kg (275 lb 2.2 oz) Physical exam General: alert, healthy and no distress Head: Normocephalic, No masses, lesions, tenderness or abnormalities Eye Exam: PERRLA, EOMI, Conjunctiva are pink and non-injected, sclera clear Ears: External ears normal, R TM not visualized secondary to cerumen, L TM not visualized secondaryto cerumen Nose: no mucosal erythema, no mucosal edema, no purulent discharge Oropharynx: no exudate, no erythema, lips, buccal mucosa, and tongue normal and mucous membranes are moist Neck: supple, no adenopathy, no bruits, thyroid normal size, non-tender, without nodularity Heart: regular rate & rhythm, no gallops, S-1 normal and S-2 normal Lungs: chest symmetric with normal AP diameter, no chest deformities noted, no chest wall tenderness, lungs clear to auscultation, distant, pickwickian Abdomen: abdomen soft, non-tender, obese, normal bowel sounds and no masses or organomegaly Back: back symmetric, no curvature, no costovertebral angle tenderness, range of motion is normal Extremities: less than 2 second capillary refill, no joint deformities, effusion, or inflammation Skin: skin color, texture, turgor are normal, no rashes or significant lesions Musculoskeletal: FROM UE and LE, normal tone, no gross deformity noted, neg ELMER, no synovitis appreciated in the small joints of the hands The following labs were reviewed today: Hepatic Panel and Hepatic panel results Recent Labs Units 03/31/21 1425 03/23/21 0804 03/22/21 0928 PROTEIN - [facility] g/dL 7.0 6.2 6.1 BILIRUBIN, TOTAL - [facility] mg/dL 1.0 1.3* 1.2 ALKALINE PHOSPHATASE - [facility] U/L 174* 159* 159* AST - [facility] U/L 53* 51* 40* ALT - [facility] U/L 33 28 27 Assessment and plan Type 2 diabetes mellitus with hemoglobin A1c goal of less than 7.0% ([facility]) (Primary) - DIABETES FOOT EXAM - CBC WITH WBC DIFFERENTIAL AND ANEMIA REFLEX WORKUP; Future; Expected date: 04/05/2021 - COMPREHENSIVE METABOLIC PANEL; Future; Expected date: 04/05/2021 Recurrent major depressive disorder, in partial remission ([facility]) Urinary catheter dysfunction, initial encounter ([facility]) Ambulatory dysfunction - DURABLE MEDICAL EQUIPMENT Spastic quadriplegic cerebral palsy ([facility]) - DURABLE MEDICAL EQUIPMENT Alcoholic cirrhosis of liver without ascites ([facility]) - rev labs HTN, goal below 140/90 - at or below goal Wheeze I think I have her convinced to use her nebulizer at home Bilateral impacted cerumen - REMOVAL IMPACTED CERUMEN IRRIGATION/LAVAGE, UNILAT Rev er note Repeat labs due Nursing to do water lavage on ears Place 1 - 3 drops of baby oil in each ear. Then place a cotton ball in the ear, take a warm bath with the cotton balls in place. Remove the cotton balls after the bath. You may do this every 3 weeks as needed for maintenance. Avoid q-tips or any other object that is placed in the ear canal as this may push wax further into the canal or damage the ear. Restart nebulizer Will work with Dr fishman to get her a hospital bed Total time today including reviewing chart before the visit, pertinent labs, imaging reports, face to face time, and documentation time was 45 minutes. The above was discussed and understanding was expressed. Brianne Pal PA-C * Janett Hurst LPN - 04/05/2021 12:33 PM EDT bilateral ear lavage done with extra large amount of cerumen removed. patient tolerated well. DM Foot Exam completed today. Provider aware. Janett DEVAN Hurst Socks and Shoes Removed for Annual Diabetic Foot Screening RIGHT FOOT: No Reddened, Cracking, Or Open Areas Noted. RIGHT Dorsalis Pedis Pulse: Palpable RIGHT Posterior Tibial Pulse: Palpable RIGHT Monofilament:Patient reports feeling monofilament pressure on plantar surface of foot LEFT FOOT: No Reddened, Cracking or Open Areas Noted. LEFT Dorsalis Pedis Pulse: Palpable LEFT Posterior Tibial Pulse: Palpable LEFT Monofilament:Patient reports feeling monofilament pressure on plantar surface of foot documented in this encounter Nursing Notes * Janett Hurst LPN - 04/05/2021 12:32 PM EDT Chief Complaint Patient presents with Hospital Follow-Up was in [facility]. documented in this encounter Plan of Treatment Upcoming Encounters Date Type Specialty Care Team Description 05/21/2021 Immunization/Injection Hematology Oncolog y Nurse, Med [address] [place] [address] [phone] 05/26/2021 Office Visit Cardiology Mega Hagen MD [address] [place] [address] [phone] 06/02/2021 Office Visit Pharmacy [address] [id number] 06/03/2021 Telemedicine Palliative Medicine Esperanza Painter MD [address] [place] [address] 06/07/2021 Nutrition Services Gastroenterology Melissa Omalley RDN 132 [facility] [place] [address] [phone] 06/11/2021 Office Visit Podiatry Prakash Martino, DPM [address] [place] [address] 06/14/2021 Office Visit Family Medicine Vanita Fishman MD [address], [place] [id number] 07/06/2021 Office Visit Hematology Oncology Tono Sanchez MD [address] [place] [address] [phone] 07/22/2021 Office Visit Pulmonary Reynaldo Marquez MD [address] [place], [place] [id number] 07/27/2021 Office Visit Gastroenterology Lyssa Stout CRNP 132 [facility] [place] [address] [phone] 09/09/2021 Imaging Radiology Scheduled Orders Name Type Priority Associated Diagnoses Orde r Schedule REMOVAL IMPACTED CERUMEN IRRIGATION/LAVAGE, UNILAT Procedures Routine Bilateral impacted cerumen Ordered: 04/05/2021 Health Maintenance Due Date Last Done Comments [...] of this encounter Implants Implanted Type Area Oracle R12 Developer Device Identifier Shelf Expiration Date Model / Serial / Lot Microtech Sure Clip Implanted:Qty: 2 on 06/03/2020 by Janis Hatch DO at OR [facility] Clip N/A: Colon 04/21/2022 [facility]-F-26-2 35-C-R / / [id number] documented as of this encounter Results * COMPREHENSIVE METABOLIC PANEL (04/05/2021 1:42 PM EDT) BUN 9 6 - 20 mg/dL [facility] Creatinine 0.6 0.5 - 1.0 mg/dL [facility] Estimated Glomerular Filtration Rate >90.0Comment:If patient is , multiply estimated GFR by 1.159. >=60.0 mL/min [facility] Sodium 141 135 - 146 mmol/L [facility] Potassium 4.1 3.5 - 5.1 mmol/L [facility] Chloride 108(H) 98 - 107 mmol/L [facility] CO2 24 22 - 32 mmol/L [facility] Anion Gap 9 7 - 15 mmol/L [facility] Glucose 182(H) 70 - 120 mg/dL [facility] Albumin 3.0(L) 3.8 - 5.0 g/dL [facility] AST 48(H) 10 - 35 U/L [facility] Alkaline Phosphatase 161(H) 35 - 130 U/L [facility] Bilirubin, Total 1.2 <=1.2 mg/dL [facility] Calcium 8.6 8.4 - 10.2 mg/dL [facility] Protein 6.1 6.0 - 8.3 g/dL [facility] ALT 29 10 - 35 U/L [facility] Specimen Blood - Venous blood specime n (specimen) [facility] [address] [place] [address] documented in this encounter Visit Diagnoses Diagnosis Hospital discharge follow-up- Primary Other follow-up examination Type 2 diabetes mellitus with hemoglobin A1c goal of less than 7.0% (HCC) Recurrent major depressive disorder, in partial remission (HCC) Urinary catheter dysfunction, initial encounter (HCC) Ambulatory dysfunction Spastic quadriplegic cerebral palsy (HCC) Congenital quadriplegia Alcoholic cirrhosis of liver without ascites (HCC) Alcoholic cirrhosis of liver HTN, goal below 140/90 Unspecified essential hypertension Wheeze Wheezing Bilateral impacted cerumen Impacted cerumen documented in this encounter Advance Directives Documents on File Type Date Recorded 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
--- OUTSIDE RECORDS SUMMARY | 2023-05-10 20:28 | External Medical Summary | Summary of Care ---
Author Name Unknown Organization [facility] [place] [address] Care Team Providers Care Cashier Gambling Name Role Phone Vanita Dunn MD Primary Care Provid er Reason for Visit * Reason Onset Date Comments Advice 05/18/2021 Status Check 05/19/2021 Status Check 05/18/2021 Encounter Details Date Type Department Care Team Description 05/18/2021 Telephone [facility] [address] [place] [address] Vanita Dunn MD [address] [place] [address] Advice; Status Check; Status Check [...] 120 Vial 11 10/02/2019 Active nystatin (NYSTOP) 951452 UNIT/GM powder Apply topically to affected area [...] 60 Each 3 07/27/2020 Active Dexcom G6 Pants Closer Device Use as directed. To test [...] TO ACCESSING. 30 g 3 10/09/2020 Active Mobile Patrol Verio In Vitro Strip (Glucose Blood) TESTING once daily 100 Strip 3 10/29/2020 Active OneTouch Delica Plus Ccnsec12I TESTING once daily 100 Each 3 10/29/2020 [...] Active Additional Information Patient taking differently: 2 [place] Nasal DAILY PRN, Congestion, Informant: Pharmacy, Reported [...] pain 01/24/2012 01/17/2017 Genetic Sleep Disorder Research Other*[id number] 05/13/2011 04/07/2016 Obstructive sleep apnea 01/18/2011 12/27/19 [...] order faxed to them Phone number is [phone] Patient does not have fax number Francisca [...] of hospital bed Thank you, Rajwinder Niño Clinical Engineering Director [facility] 05/20/2021, 9:10 AM * Telephone Encounter - Kiesha Schmitt LPN - 05/19/2021 3:56 PM EDT Pt states [facility] must have an order to ship [...] be faxed somewhere? If so, where?: Yes, [facility] [employer] Fax Number, if applicable: [phone] Call Back Number: [phone] This order was faxed already 04/06/2021 * [...] Oncolog y Nurse, Med [address] [place] [address] [phone] 05/26/2021 Office Visit Cardiology Mega Hagen MD 132 [facility] [place] [address] [phone] 06/02/2021 Office Visit Pharmacy [facility] [address] [place] [address] 06/03/2021 Telemedicine Palliative Medicine Esperanza Painter MD [address] [place] [address] 06/07/2021 Nutrition Services Gastroenterology Melissa Omalley, SAMANTHA 132 [place] [address] [phone] 06/11/2021 Office Visit Podiatry Prakash Martino, [place] [address] [place] [address] 06/14/2021 Office Visit Family Medicine Vanita Dunn MD [address] [place] [address] 07/06/2021 Office Visit Hematology Oncology Tono Sanchez MD 200 [place] [address] [phone] 07/22/2021 Office Visit Pulmonary Reynaldo Marquez MD [address] [place] [facility] [place] [address] [phone] 07/27/2021 Office Visit Gastroenterology Lyssa Stout CRNP 132 [place] [address] [phone] 09/09/2021 Imaging Radiology Health Maintenance Due Date Last Done Comments DIABETES-EYE EXAM 06/12/2019 06/12/2018, , 06/12/2018, Additional history exists Dexa Scan 2020 Zoster Vaccines (3 of 3) 06/23/2020 04/28/2020, 03/ Influenza Vaccine (FLU shot) (#1) 2021 06/01/2020, [...] this encounter Implants Implanted Type Area Manager Patient Device Identifier Shelf Expiration Date Model / Serial / Lot Microtech Sure Clip Implanted:Qty: 2 on 06/03/2020 by Janis Hatch DO at OR [facility] Clip N/A: Colon 04/21/2022 [facility]-F-26-2 35-C-R / / [id number] documented as of this encounter Advance Directives Documents on File Type Date Recorded 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
--- OUTSIDE RECORDS SUMMARY | 2023-05-10 20:28 | External Medical Summary | Summary of Care ---
Author Name Unknown Organization [facility] Address [facility] [place] [address] Care Team Providers Care Baseboard Heating Installer Name Role Phone Vanita Dunn MD Primary Care Provid er Reason for Visit * Reason Onset Date Comments Test Results 05/19/202105/19 Encounter Details Date Type Department Care Team Description 05/19/2021 Telephone General Internal Medicine [facility] 200 [facility] [place] [address] Keturah Sanchez MD 200 [facility] [place] [address] [phone] Test Results (05/19) Allergies Active Allergy Reactions Severity Noted Date Comments Adhesive Tape Itching 04/29/2020 Penicillins Rash 02/12/2008 Perflutren Protein A Microsph 2019 Definity-lower back pain documented as of this encounter (statuses as of 05/19/2021) Medications Medication Sig Dispensed Refills Start Date [...] 120 Vial 11 10/02/2019 Active nystatin (NYSTOP) 738486 UNIT/GM powder Apply topically to affected area [...] 60 Each 3 07/27/2020 Active Dexcom G6 Dietetics Teacher Device Use as directed. 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 Sanchez's result messages. She verbalized understanding of all information and will comply. * Telephone Encounter - Josh Barr RN - 05/19/2021 4:01 PM EDT ----- Message from Keturah Sanchez MD sent at 05/19/2021 3:28 PM EDT ----- Please inform the patient that her cardiac markers are and negative and her other blood work shows high but stable liver function test which could be from her underlying cirrhosis of liver. She should keep follow-up with her primary care provider, GI and also keep schedule appointment with Cardiology for ongoing chest pain. ER for any emergencies in the meantime. * Telephone Encounter - Josh Barr RN - 05/19/2021 4:00 PM EDT ----- Message from Keturah Sanchez MD sent at 05/19/2021 3:35 PM EDT ----- Reason chest x-ray is normal which is good news. Patient should follow up with cardiology and GI asscheduled. ER for any emergencies in the meantime. documented in this encounter Plan of Treatment Upcoming Encounters Date Type Specialty Care Team Description 05/21/2021 Immunization/Injection Hematology Oncolog y Nurse, Med 4 [address] [facility] [place] [address] [phone] 05/26/2021 Office Visit [facility] [place] [address] [phone] 06/02/2021 Office Visit Pharmacy [facility] [address] [place] [address] [phone] 06/03/2021 Telemedicine Palliative Medicine Esperanza Painter MD [address] [place], [place] [address] 06/07/2021 Nutrition Services Gastroenterology Melissa Omalley RDN 132 [place] [address] [phone] 06/11/2021 Office Visit Podiatry Prakash Martino, SIRENA [address] [place] [address] 06/14/2021 Office Visit Family Medicine Vanita Dunn MD [address] [place], [place] [address] 07/06/2021 Office Visit Hematology Oncology Tono Sanchez MD [address] [place] [address] [phone] 07/22/2021 Office Visit Pulmonary AlmaReynaldo MD [address] [place] [address] [phone] 07/27/2021 Office Visit Gastroenterology Lyssa Stout [facility] [place] [address] [phone] 09/09/2021 Imaging Radiology Health Maintenance Due Date Last Done Comments DIABETES-EYE EXAM 06/12/2019 06/12/2018, , 06/12/2018, Additional history exists Dexa Scan 2020 Zoster Vaccines (3 of 3) 06/23/2020 04/28/2020, 03 Influenza Vaccine (FLU shot) (#1) 2021 06/01/2020, [...] of this encounter Implants Implanted Type Area Infectious Disease Technician Device Identifier Shelf Expiration Date Model / Serial / Lot Microtech Sure Clip Implanted:Qty: 2 on 06/03/2020 by Janis Hatch DO at OR [facility] Clip N/A: Colon 04/21/2022 [facility]-F-26-2 35-C-R / / [id number] documented as of this encounter Advance Directives Documents on File Type Date Recorded Patient Coding Consultant 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
--- OUTSIDE RECORDS SUMMARY | 2023-05-10 20:29 | External Medical Summary | Summary of Care ---
Author Name Unknown Organization [facility] Address [place] [address] Care Team Providers Care Geomatics Professor Name Role Phone Vanita Dunn MD Primary Care Provid er Reason for Visit * Reason Onset Date Comments Advice 05/18/2021 Status Check 05/19/2021 Encounter Details Date Type Department Care Team Description 05/18/2021 Telephone [facility] [address] [place] [address] Vanita Dunn MD [address] [place] [address] Advice; Status Check Allergies Active Allergy Reactions Severity [...] 120 Vial 11 10/02/2019 Active nystatin (NYSTOP) 099650 UNIT/GM powder Apply topically to affected area [...] 60 Each 3 07/27/2020 Active Dexcom G6 Wafer Polishing Lead Worker Device Use as directed. To test [...] Strip 3 10/29/2020 Active OneTouch Delica Plus [id number] TESTING once daily 100 Each 3 10/29/2020 [...] Active Additional Information Patient taking differently: 2 [place] Nasal DAILY PRN, Congestion, Informant: Pharmacy, Reported [...] pain 01/24/2012 01/17/2017 Genetic Sleep Disorder Research Other*[id number] 05/13/2011 04/07/2016 Obstructive sleep apnea 01/18/2011 12/27/19 [...] be faxed somewhere? If so, where?: Yes, [facility] Fax Number, if applicable: [phone] Call Back Number: [phone] This order was faxed already 04/06/2021 * [...] Hematology Oncolog y Nurse, Med 4 [address] [place] [address] [phone] 05/26/2021 Office Visit Cardiology Mega Hagen MD [address] [place] [address] [phone] 06/02/2021 Office Visit Pharmacy [facility] [address] [place], [place] [id number] 06/03/2021 Telemedicine Palliative Medicine Esperanza Painter MD [address] [place] [address] 06/07/2021 Nutrition Services Gastroenterology Melissa Omalley RDN [address] [place] [address] [phone] 06/11/2021 Office Visit Podiatry Prakash Martino DPM [address] [place] [address] 06/14/2021 Office Visit Family Medicine Vanita Dunn MD [address], [place] [phone] 07/06/2021 Office Visit Hematology Oncology Tono Sanchez MD 200 [place] [address] [phone] 07/22/2021 Office Visit Pulmonary Reynaldo Marquez MD [address] [place], [place] [address] [phone] 07/27/2021 Office Visit Gastroenterology Lyssa Stout CRNP 132 [facility] [place] [address] [phone] 09/09/2021 Imaging Radiology Health Maintenance Due Date [...] of this encounter Implants Implanted Type Area Traffic Law Attorney Device Identifier Shelf Expiration Date Model / Serial / Lot Microtech Sure Clip Implanted:Qty: 2 on 06/03/2020 by Janis Hatch DO at OR [facility] Clip N/A: Colon 04/21/2022 [facility]-F-26-2 35-C-R / / [id number] documented as of this encounter Advance Directives Documents on File Type Date Recorded Patient Floor Installer 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 File Name Relationship Healthcare Agent [facility] p Communication Syed Bustos Spouse Emergency Contact
--- OUTSIDE RECORDS SUMMARY | 2023-05-10 20:29 | External Medical Summary | Summary of Care ---
Author Name Unknown Organization [facility] Address [place] [address] Care Team Providers Care Business Analytics Analyst Name Role Phone Vanita Dunn MD Primary Care Provid er Reason for Visit * Reason Onset Date Comments Advice 05/18/2021 Status Check 05/19/2021 Encounter Details Date Type Department Care Team Description 05/18/2021 Telephone [facility] [address] [place] [address] Vanita Dunn MD [address] [place] [address] Advice; Status Check Allergies Active [...] 120 Vial 11 10/02/2019 Active nystatin (NYSTOP) 419518 UNIT/GM powder Apply topically to affected area [...] 60 Each 3 07/27/2020 Active Dexcom G6 X Ray Equipment Tester Device Use as directed. To test [...] Strip 3 10/29/2020 Active OneTouch Delica Plus Byooxq78A TESTING once daily 100 Each 3 10/29/2020 [...] Active Additional Information Patient taking differently: 2 [place] Nasal DAILY PRN, Congestion, Informant: Pharmacy, Reported [...] pain 01/24/2012 01/17/2017 Genetic Sleep Disorder Research Other*[id number] 05/13/2011 04/07/2016 Obstructive sleep apnea 01/18/2011 12/27/19 [...] encounter Miscellaneous Notes * Telephone Encounter - Marii Sheets OSA [...] be faxed somewhere? If so, where?: Yes, [facility] Fax Number, if applicable: [phone] Call Back Number: [phone] This order was faxed already 04/06/2021 * [...] Oncolog y Nurse, Med 4 200 [place] [address] [phone] 05/26/2021 Office Visit Cardiology Mega Hagen MD 132 [place] [address] [phone] 06/02/2021 Office Visit Pharmacy [facility] [address] [place] [address] 06/03/2021 Telemedicine Palliative Medicine Esperanza Painter MD [address] [place] [address] 06/07/2021 Nutrition Services Gastroenterology Melissa Omalley RDN 132 [place] [address] [phone] 06/11/2021 Office Visit Podiatry Prakash Martino, [facility] [address] [place] [address] [phone] 06/14/2021 Office Visit Family Medicine Vanita Dunn MD [address] [place] [address] 07/06/2021 Office Visit Hematology Oncology Tono Sanchez MD 200 [facility] [place] [address] [phone] 07/22/2021 Office Visit Pulmonary Reynaldo Marquez MD [address] [place] [address] [phone] 07/27/2021 Office Visit Gastroenterology Lyssa Stout CRNP 132 [facility] [place] [address] [phone] 09/09/2021 Imaging Radiology Health Maintenance Due Date [...] of this encounter Implants Implanted Type Area Resilient Tile Installer Device Identifier Shelf Expiration Date Model / Serial / Lot Microtech Sure Clip Implanted:Qty: 2 on 06/03/2020 by Janis Hatch DO at OR [facility] Clip N/A: Colon 04/21/2022 [facility]-F-26-2 35-C-R / / [id number] documented as of this encounter Advance Directives Documents on File Type Date Recorded 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
--- OUTSIDE RECORDS SUMMARY | 2023-05-10 20:30 | External Medical Summary | Summary of Care ---
Author Name Unknown Organization [facility] Address [place] [address] Care Team Providers Care Pneudraulic Systems Mechanic Name Role Phone Vanita Dunn MD Primary Care Provid er Reason for Visit * Reason Onset Date Comments Advice 05/18/2021 Status Check 05/19/2021 Encounter Details Date Type Department Care Team Description 05/18/2021 Telephone [facility] [address] [place] [address] Vanita Dunn MD [address] [place] [address] Advice; Status Check Allergies Active [...] 120 Vial 11 10/02/2019 Active nystatin (NYSTOP) 531018 UNIT/GM powder Apply topically to affected area [...] 60 Each 3 07/27/2020 Active Dexcom G6 Die Repairer Stamping Device Use as directed. To test blood [...] Strip 3 10/29/2020 Active OneTouch Delica Plus Kgsdgl57Z TESTING once daily 100 Each 3 10/29/2020 [...] Active Additional Information Patient taking differently: 2 [place] Nasal DAILY PRN, Congestion, Informant: Pharmacy, Reported [...] pain 01/24/2012 01/17/2017 Genetic Sleep Disorder Research Other*[id number] 05/13/2011 04/07/2016 Obstructive sleep apnea 01/18/2011 12/27/19 [...] RN - 05/19/2021 1:22 PM EDT On Patent saw Abhishek Lornelyndon On 04/06/2021 We got the following Request An order was requested for this patient. Name of Requesting Provider: Dulce Order Requested: Hospital Bed Diagnosis/Reason for Request: Cerebral Palsy Does the order need to be faxed somewhere? If so, where?: Yes, [facility] Fax Number, if applicable: [phone] Call Back Number: [phone] This order was faxed already 04/06/2021 * [...] Hematology Oncolog y Nurse, Med 4 200 [place] [address] [phone] 05/26/2021 Office Visit Cardiology Mega Hagen MD [address] [place] [address] [phone] 06/02/2021 Office Visit [facility]acy [facility] [address] [place] [address] [phone] 06/03/2021 Telemedicine Palliative Medicine Esperanza Painter MD [address] [place] [id number] 06/07/2021 Nutrition Services Gastroenterology Melissa Omalley RDN 132 [place] [address] [phone] 06/11/2021 Office Visit Podiatry Prakash Martino, [place] [address] [place] [address] 06/14/2021 Office Visit Family Medicine Vanita Dunn MD [address] [place], [place] [phone] 07/06/2021 Office Visit Hematology Oncology Tono Sanchez MD [address] [place] [address] [phone] 07/22/2021 Office Visit Pulmonary AlmaReynaldo MD [address] [place], [place] [address] 07/27/2021 Office Visit Gastroenterology Lyssa Stout CRNP [address] [place] [address] [phone] 09/09/2021 Imaging Radiology Health Maintenance Due Date [...] encounter Implants Implanted Type Area Public Relations Manager Device Identifier Shelf Expiration Date Model / Serial / Lot Microtech Sure Clip Implanted:Qty: 2 on 06/03/2020 by Janis Hatch DO at OR [facility] Clip N/A: Colon 04/21/2022 [facility]-F-26-2 35-C-R / / [id number] documented as of this encounter Advance Directives Documents on File Type Date Recorded Patient Chip Machine Operator Expl 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 on File Name Relationship Healthcare Agent Romainne navya Communication Syed Bustos Spouse Emergency Contact
--- OUTSIDE RECORDS SUMMARY | 2023-05-10 20:30 | External Medical Summary | Summary of Care ---
Author Name Unknown Organization [place] [address] Care Team Providers Care Tax Preparer Name Role Phone Vanita Dunn MD Primary Care Provid er Reason for Referral * Evaluate & Treat - Unlimited Visits (Within 10 days (routine)) Status Reason Specialty Diagnoses / Procedures Referred By Contact Referred To Contact Pending Review Specialty Services Required Cardiovascular Medicine / Cardiology Diagnoses Chest pain, unspecified type Keturah Sanchez MD [address] [place] [address] Question Answer Referral Priority Within 10 days (routine) To which of the following clinics are you referring your patient? General Cardiology Clinic Comments Ongoing mid sternal and Bl chestpain. Work up in ER a month back was negative. Thanks. Electronically signed by Keturah Sanchez MD at Reason for Visit * Reason Comments Acute pain in chest on rig ht side(had it yesterday)(went away and came back)----shoots across chest--no SOB Encounter Details Date Type Department Care Team Description 05/18/2021 Office Visit General Internal Medicine State Gasper Devlin [address] [place] [id number] Keturah Sanchez MD [address] [place] [place] [address] [phone] Chest pain, unspecified type*; Risk and functional assessment Allergies Active Allergy Reactions Severity Noted Date [...] 120 Vial 11 10/02/2019 Active nystatin (NYSTOP) 236322 UNIT/GM powder Apply topically to affected area [...] 60 Each 3 07/27/2020 Active Dexcom G6 Wire Winding Machine Operator Device Use as directed. To [...] Strip 3 10/29/2020 Active OneTouch Delica Plus [id number] TESTING once daily 100 Each 3 10/29/2020 [...] Active Additional Information Patient taking differently: 2 [place] Nasal DAILY PRN, Congestion, Informant: Pharmacy, Reported [...] ([facility]) inject 28 units under skin at bedtime [...] pain 01/24/2012 01/17/2017 Genetic Sleep Disorder Research Other*[id number] 05/13/2011 04/07/2016 Obstructive sleep apnea 01/18/2011 12/27/19 [...] Sign Reading Time Taken Comments Blood Pressure 128/76 05/18/2021 12:40 PM EDT Pulse 76 05/18/2021 12:40 PM EDT Temperature 36.3 C (97.3 F) 05/18/2021 12:40 PM E DT Respiratory Rate 18 05/18/2021 12:40 PM EDT Oxygen Saturation - - Inhaled [...] this encounter Patient Instructions * Patient Instructions* Amanda Gallardo LPN - 05/18/2021 12:37 PM EDT Patient Instructions - Fall Prevention (This education [...] pathway between the bedroom and the bathroom [employer] Patient Education Copyright 2008 - 2010 [employer] except where otherwise noted Preventing Falls: Exercises [...] 10 times. Repeat this throughout the day. [employer] Patient Education Copyright 2009 - 2010 [employer] except where otherwise noted. Preventing Falls: Moving [...] that mean climbing, even on a stepstool. [employer] Patient Education Copyright 2008 - 2010 [employer] except where otherwise noted. Urinary Incontinence Plan [...] Wear support stockings (TEDs)if you have edema Amanda Gallardo LPN 05/18/2021 Kegel Exercises Kegel exercises dont require special [...] even more effective. [employer] Patient Education Copyright 2008 - 2010 [employer] except where otherwise noted. [...] documented in this encounter Progress Notes * Keturah Sanchez MD - 05/18/2021 12:40 PM EDT HPI: Shaina Bustos is a 66 year old female with hx of cirrhosis of liver,portal gastropathy,NG, restrictive lung disease, Anemia, intermittent asthma, hx of CHF, Type 2 DM,HTN,THAD, follows with speech therapist early intervention at [place], cerebral palsy,multiple ER visits and hospital admissions, who presents with: Chief Complaint Patient presents with Acute pain in chest on right side(had it yesterday)(went away and came back)----shoots across chest--no SOB Patient is here for the acute visit. Patient complains of: Right-sided chest pain for many months to year and states its getting slightly worse. Last EKG a month back. Occasional cough+ Pt denies: Fever, chills, wheezing, shortness of breath, palpitation Did try any OTC meds: no Have you had similar symptoms in past: Yes, many times. Any ER/Urgent care visit: Yes, a MONTH BACK HAD SIMILAR SYMPTOMS, WENT TO er AND WORK UP WAS NEGATIVE. On scale of 1 to 10 how bad is the severity: Any need for med refills: No Any labs needed: Yes Need any Referral: Cardiology your stress test if ongoing symptoms or abnormal EKG Due for any HM? Vaccines, DEXA scan How does patient feel emotionally? Little nervous Patient Active Problem List Diagnosis Code Venous insufficiency I87.2 Spinal stenosis of lumbar region without neurogenic claudication M48.061 Cerebral palsy ([facility]) G80.9 HTN, goal below 140/90 I10 [...] 7.0% ([facility]) E11.9 Vitamin D deficiency E55.9 Restrictive lung disease J98.4 Obesity, morbid (more than 100 lbs over ideal weight or BMI > 40) ([facility]) E66.01 Dyslipidemia, goal LDL below 70 E78.5 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 R39.81 Atypical chest pain R07.89 Acquired hypothyroidism E03.9 Chronic pain syndrome G89.4 MEDICATION USE AGREEMENT GL2382 Cirrhosis of liver ([facility]) K74.60 THAD on CPAP G47.33, Z99.89 Wheelchair dependent Z99.3 Pancytopenia ([facility]) D61.818 Ambulatory dysfunction R26.2 DM type 2 with diabetic peripheral neuropathy ([facility]) E11.42 Insomnia G47.00 Recurrent major depressive disorder, in partial remission ([facility]) F33.41 Impaired mobility and ADLs Z74.09, Z78.9 Generalized weakness R53.1 Gastroesophageal reflux disease K21.9 History of Achilles tendon repair Z98.890 Anemia D64.9 Fibromyalgia M79.7 Achilles tendinitis, right leg M76.61 Thrombocytopenia ([facility]) D69.6 Iron deficiency anemia due to chronic blood loss D50.0 Splenomegaly R16.1 Esophagitis K20.90 Esophageal varices ([facility]) I85.00 Uncontrolled type 2 diabetes mellitus with hyperglycemia ([facility]) E11.65 Cardiomegaly I51.7 SOB (shortness of breath) R06.02 Melena K92.1 Vancomycin resistant enterococcus culture positive Z22.39 Urinary catheter dysfunction ([facility]) T83.018A Cyst of pancreas K86.2 Calculus of kidney N20.0 Acute on chronic heart failure with preserved ejection fraction (HFpEF) ([facility]) I50.33 Anginal chest pain at rest ([facility]) I20.8 Portal hypertensive gastropathy ([facility]) K76.6, K31.89 Lactic acidosis E87.2 Food insecurity Z59.4 Current Outpatient Medications Medication Sig Dispense Refill Gabapentin 300 MG Oral Capsule (Neurontin) TAKE [...] 10 mEq by mouth daily at noon. Lactulose 20 GM/30ML Oral Solution (Constulose) Take 67.5 mL by mouth 3 times a day. Titrate tohave 3 to 4 bowel movement every day. 2700 mL 2 Aspirin 81 MG Oral Tablet Chewable Take [...] DAILY 90 Tab 3 OneTouch Delica Plus [id number] TESTING once daily 100 Each 3 OneTouch Verio In Vitro Strip (Glucose Blood) TESTING once daily 100 Strip 3 Lidocaine-Prilocaine 2.5-2.5 % External Cream (Emla) Apply topically to affected area as neededfor Other (for port). APPLY TO SKIN OVER MEDIPORT & COVER 1HR PRIOR TO ACCESSING. 30 g 3 Dexcom G6 Wire Winding Machine Operator Device Use as directed. To [...] With spacer 16 g 1 nystatin (NYSTOP) 918283 UNIT/GM powder Apply topically to affected area 3 times a day. 60 g 1 vitamin c (ASCORBIC ACID) 500 MG Tablet Take 500 mg by mouth daily. CENTRUM SILVER PO TABS Take 1 Tab by mouth daily. 1 Tab 0 albuterol sulfate (PROVENTIL) (2.5 MG/3ML) 0.083% nebulizer solution Inhale 1 Vial via nebulizer every 6 hours as needed for Wheezing. 120 Vial 11 The patient's medication list was reviewed and updated as needed. Review of patient's allergies indicates: Allergen Reactions Adhesive Tape Itching Pcn [Penicillins] Rash Perflutren Protein A Microsph Definity-lower back pain Past Medical History: Diagnosis Date Cerebral palsy (HCC) 01/24/2012 Chronic constipation Chronic hypoxemic respiratory failure (HCC) 04/08/2019 Chronic pain 03/27/2012 Cirrhosis of liver ([facility]) 11/20/2017 DDD (degenerative disc disease), lumbar [...] 7.0% ([facility]) 09/26/2013 ICD-10 update of inactive term Social History Socioeconomic History Marital status: Spouse name: Syed Em" Number of children: 1 Years of education: Not on file Highest education level: Not on file Occupational History Not on file Social Needs Financial resource strain: Not on file Food insecurity Worry: Sometimes true Inability: Sometimes true Transportation needs Medical: Not on file Non-medical: Not on file Tobacco Use Smoking status: Never Smoker Smokeless tobacco: Never Used Substance and Sexual Activity Alcohol use: No Drug use: No Comment: too much soda Sexual activity: Not Currently Partners: Male Lifestyle Physical activity Days per week: Not on file Minutes per session: Not on file Stress: Not on file Relationships Social connections Talks on phone: Not on file Gets together: Not on file Attends jew service: Not on file Active member of club or organization: Not on file Attends meetings of clubs or organizations: Not on file Relationship status: Not on file Intimate partner violence Fear of current or ex partner: Not on file Emotionally abused: Not on file Physically abused: Not on file Forced sexual activity: Not on file Other Topics Concern Not on file Social History Narrative 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49 education: 12 service: no hobbies/interests: reading transfusions: no exercise: no diet: no adventism/rastafari: Raised uatsdin marital status: 2nd time 11/15 children: 1 gc: 0/15 for 2nd ggc: 0 pets: Dog, lots of cats exposure to violence/threats/abuse: no things to improve: no Vaping/E-Cigarette Use Vaping/E-Cigarette Use Never User Vaping/E-Cigarette Substances Nicotine No Other No Flavoring No THC No Cannabidiol (CBD) No Vaping/E-Cigarette Devices Disposable No Pre-filled or Refillable Cartridge No Refillable Tank No Pre-filled Pod No Family History Problem Relation Age of Onset Heart Disorder Father of [place] at age 61 Diabetes Father Heart Disorder Mother of [place] age 72 Cancer None Arthritis None Stroke None Heart Disorder Sister Mi at age 46 Hypertension Sister Mental Disorder None All system negative except as per hpi. OBJECTIVE: Blood pressure 128/76, pulse 76, temperature 36.3 C (97.3 F), resp. rate 18. PHYSICAL EXAM: Wheelchair bound. HEENT: PERRLA, EOMI, anicteric sclera, b/l tympanic membrane is pearly white, no erythema, no pharyngeal erythema, no lymphadenopathy, neck supple CVS: RRR, no murmurs, rubs or gallops, s1 s 2normal. RESP: clear to auscultation, no wheezing or crackles EXT: no edema, cyanosis, peripheral pulses palpable bilaterally No large joint swelling, no redness, range of motion normal. Skin normal. Gait normal. Mood stable No focal weakness ASSESSMENT AND PLAN: Chest pain, unspecified type (Primary) Multiple ER visits. Less likely cardiac but would like to complete the work up. - EKG - CARDIOLOGY REFERRAL OP - XR CHEST 2 VIEWS - CK; Future; Expected date: 05/18/2021 - TROPONIN T, HIGH SENSITIVITY; Future; Expected date: 05/18/2021 - COMPREHENSIVE METABOLIC PANEL; Future; Expected date: 05/18/2021 ER if severe s/s. Advised close PCP f/u. ER if any emergencies. Risk and functional assessment Follow Up: Return if symptoms worsen or fail to improve, for Return with Physician. | For: Return with Physician Keturah Sanchez MD * Amanda Gallardo LPN - 05/18/2021 12:37 PM EDT Chief Complaint Patient presents with Acute pain in chest on right side(had it yesterday)(went away and came back)----shoots across chest--no SOB Took nitroglycerin this morning and it did not help documented in this encounter Procedure Notes * Lam Aleman DO - 05/18/2021 11:54 AM EDT Associated Order(s): EKG REASON FOR STUDY: chestpain CONCLUSIONS: Sinus rhythm with 1st degree AV block Inferior infarct (cited on or before 08-APR-2021) Abnormal ECG When compared with ECG of 16-APR-2021 17:44, CA interval has increased Ventricular Rate: 69 Atrial Rate: 69 CA Interval: 248 QRS Duration: 90 QT/QTc: 426/456 ms P-R-T Imperial: 25 : -11 : 15 degrees documented in this encounter Plan of Treatment Upcoming Encounters Date Type Specialty Care Team Description 05/21/2021 Immunization/Injection Hematology Oncolog y Nurse, Med [address] [place] [address] [phone] 05/26/2021 Office Visit Cardiology Mega Hagen MD [address] [place] [address] [phone] 06/02/2021 Office Visit Pharmacy [address] [id number] 06/03/2021 Telemedicine Palliative Medicine Esperanza Painter MD [address] [place] [address] 06/07/2021 Nutrition Services Gastroenterology Melissa Omalley RDN [address] [facility] [place] [address] [phone] 06/11/2021 Office Visit Podiatry Prakash Martino DPM [facility] [place] [address] 06/14/2021 Office Visit Family Medicine Vanita Dunn MD [address], [place] [id number] 07/06/2021 Office Visit Hematology Oncology Tono Sanchez MD [address] [place] [address] [phone] 07/22/2021 Office Visit Pulmonary Reynaldo Marquez MD [address] [place] [address] [phone] 07/27/2021 Office Visit Gastroenterology Lyssa Stout CRNP [address] [facility] [place] [address] [phone] 09/09/2021 Imaging Radiology Scheduled Referrals Name Type Priority Associated Diagnoses Orde r Schedule CARDIOLOGY REFERRAL OP Referral Within 10 days (routine) Chest pain, unspecified type Ordered: 05/18/2021 Health Maintenance Due Date Last Done Comments [...] of this encounter Implants Implanted Type Area Sole Rounding Machine Operator Device Identifier Shelf Expiration Date Model / Serial / Lot [employer] Sure Clip Implanted:Qty: 2 on 06/03/2020 by Janis Hatch DO at OR [facility] Clip N/A: Colon 04/21/2022 [facility]-F-[id number] 35-C-R / / [id number] documented as of this encounter Procedures Procedure Name Priority Date/Time Associated Diagnosis Comments XR CHEST 2 VIEWS STAT 05/18/2021 2:09 PM EDT Chest pain, unspecified type CA ECG ROUTINE ECG W/LEAST 12 LDS I&R ONLY Routine 05/18/2021 11:54 AM EDT Chest pain, unspecified type documented in this encounter Results * XR CHEST 2 VIEWS (05/18/2021 2:09 PM EDT) Specimen Impressions Performed At IMPRESSION No acute cardiopulmonary process seen radiographically. [facility] RADIOLOGY Narrative Performed At EXAM XR CHEST 2 VIEWS-05/18/2021 2:09 pm HISTORY mid sternal chest pain COMPARISON Chest x-ray dated 04/16/2021 TECHNIQUE AP and lateral chest radiographs FINDINGS There is a right IJ MediPort which terminates in the right atrium. The cardiomediastinal silhouette is stable in size. There are no pulmonary consolidations, pleural effusions or pneumothorax. There is no acute bone abnormality. [facility] RADIOLOGY Procedure Note Interface, Rad In - 05/18/2021 4:02 PM EDT EXAM XR CHEST 2 VIEWS-05/18/2021 2:09 pm HISTORY mid sternal chest pain COMPARISON Chest x-ray dated 04/16/2021 TECHNIQUE AP and lateral chest radiographs FINDINGS There is a right IJ MediPort which terminates in the right atrium. Thecardiomediastinal silhouette is stable in size. There are no pulmonaryconsolidations, pleural effusions or pneumothorax. There is no acute boneabnormality. IMPRESSION IMPRESSION No acute cardiopulmonary process seen radiographically. Performing Organization Address City/[facility]/ZIP Co de Phone Number [facility] * COMPREHENSIVE METABOLIC PANEL (05/18/2021 1:31 PM EDT) BUN 8 6 - 20 mg/dL LABORATORY STAT [place] [address]- Creatinine 0.6 0.5 - 1.0 mg/dL [address] Estimated Glomerular Filtration Rate >90.0Comment:If patient is , multiply estimated GFR by 1.159. >=60.0 mL/min [place] [address]- Sodium 145 135 - 146 mmol/L [place] [address]- Potassium 3.8 3.5 - 5.1 mmol/L [place] [address]- Chloride 111(H) 98 - 107 mmol/L [place] [address]- CO2 24 22 - 32 mmol/L [place] [address]- Anion Gap 10 7 - 15 mmol/L LABORATORY [place] [address]- Glucose 141(H) 70 - 120 mg/dL [place] [address]- Albumin 3.2(L) 3.8 - 5.0 g/dL [place] [address]- AST 58(H) 10 - 35 U/L LABORATORY STAT [facility] 56- Alkaline Phosphatase 164(H) 35 - 130 U/L [place] [address]- Bilirubin, Total 0.9 <=1.2 mg/dL [place] [address]- Calcium 8.6 8.4 - 10.2 mg/dL [place] [address]-02 Protein 6.2 6.0 - 8.3 g/dL [place] [address]- ALT 33 10 - 35 U/L LABORATORY STAT [facility] 56- Specimen Blood - Venous blood specime n (specimen) Performing Organization Address City/[facility]/ZIP Co de Phone Number [facility] 56- [address] [place] [address] * TROPONIN T, HIGH SENSITIVITY (05/18/2021 1:31 PM EDT) Troponin T, High Sensitivity 13 <=14 ng/L [facility] Specimen Blood - Venous blood specime n (specimen) Performing Organization Address [facility] de Phone Number LAB[facility]ATORY [facility] [address] [place] [address] * CK (05/18/2021 1:31 PM EDT) CK 54 26 - 192 U/L [facility] Specimen Blood - Venous blood specime n (specimen) Performing Organization Address [facility] de Phone Number LAB[facility]ATORY [facility] [address] [place] [address] * EKG (05/18/2021 11:54 AM EDT) Specimen Procedure Note Lam Aleman, DO - 05/18/2021 11:54 AM EDT REASON FOR STUDY: chestpain CONCLUSIONS: Sinus rhythm with 1st degree AV block Inferior infarct (cited on or before 08-APR-2021) Abnormal ECG When compared with ECG of 16-APR-2021 17:44, CA interval has increased Ventricular Rate: 69 Atrial Rate: 69 CA Interval: 248 QRS Duration: 90 QT/QTc: 426/456 ms P-R-T Imperial: 25 : -11 : 15 degrees Performing Organization Address [facility] de Phone Number [facility] documented in this encounter Visit Diagnoses Diagnosis Chest pain, unspecified type- Primary Risk and functional assessment Screening for unspecified condition documented in this encounter Advance Directives Documents on File Type Date Recorded Patient Hand Screen Printer 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 Agents on File Name Relationship Healthcare Agent [facility] p Communication Syed Bustos Spouse Emergency Contact
--- OUTSIDE RECORDS SUMMARY | 2023-05-10 20:31 | External Medical Summary ---
Author Name Unknown Address Unknown Organization K01:LABORATORY [facility] [place] [address] [place] [address] Laboratory Report Ordering Provider Test Date Status JACOB SUH 05/18/2021 13:31:34 Final Observation Date Value Abnormality Reference (Units ) Status Troponin T 05/18/2021 13:31:34 13 <=14 (ng/ L) Final Performing Location LABORATORY [facility] - [address] [place] [address]
--- OUTSIDE RECORDS SUMMARY | 2023-05-10 20:31 | External Medical Summary | Summary of Care ---
Author Name Unknown Organization [place] [address] Care Team Providers Care Staff Cytotechnologist Name Role Phone Vanita Dunn MD Primary Care Provid er Reason for Referral * Evaluate & Treat - Unlimited Visits (Within 10 days (routine)) Status Reason Specialty Diagnoses / Procedures Referred By Contact Referred To Contact Pending Review Specialty Services Required Cardiovascular Medicine / Cardiology Diagnoses Chest pain, unspecified type Keturah Sancehz MD [address] [place] [address] Question Answer Referral Priority Within 10 days [...] State Gasper Devlin [address] [place] [address] Keturah Sanchez MD [address] [place] [place] [address] [phone] Chest pain, unspecified type*; Risk and functional assessment Allergies Active Allergy Reactions Severity Noted Date Comments Adhesive Tape Itching 04/29/2020 Penicillins Rash 02/12/2008 Perflutren Protein A Microsph 2019 Definity-lower back pain documented as of this encounter (statuses as of 05/18/2021) Medications Medication Sig Dispensed Refills Start Date [...] 120 Vial 11 10/02/2019 Active nystatin (NYSTOP) 423645 UNIT/GM powder Apply topically to affected area [...] 60 Each 3 07/27/2020 Active Dexcom G6 Geological Drafter Device Use as directed. To test [...] Strip 3 10/29/2020 Active OneTouch Delica Plus [id number] TESTING once daily 100 Each 3 10/29/2020 [...] Active Additional Information Patient taking differently: 2 [place] Nasal DAILY PRN, Congestion, Informant: Pharmacy, Reported [...] than 7.0% ([facility]) inject 28 units under skin at [...] as of this encounter (statuses as of 05/18/2021) Active Problems Problem Noted Date Food insecurity [...] as of this encounter (statuses as of 05/18/2021) Resolved Problems Problem Noted Date Resolved Date [...] pain 01/24/2012 01/17/2017 Genetic Sleep Disorder Research Other*[id number] 05/13/2011 04/07/2016 Obstructive sleep apnea 01/18/2011 12/27/19 [...] as of this encounter (statuses as of 05/18/2021) Immunizations Name Administration Dates Next Due COVID-19 [...] pathway between the bedroom and the bathroom [employer] Patient Education Copyright 2008 - 2010 [employer] except where otherwise noted Preventing Falls: Exercises [...] that mean climbing, even on a stepstool. [employer] Patient Education Copyright 2008 - 2010 [employer] except where otherwise noted. Urinary Incontinence Plan [...] of CHF, Type 2 DM,HTN,THAD, follows with uncrater at [place], cerebral palsy,multiple ER visits and hospital admissions, [...] neurogenic claudication M48.061 Cerebral palsy ([facility]) G80.9 HTN, goal below 140/90 I10 [...] than 7.0% ([facility]) E11.9 Vitamin D deficiency E55.9 Restrictive lung disease J98.4 Obesity, morbid (more than 100 lbs over ideal weight or BMI > 40) ([facility]) E66.01 Dyslipidemia, goal LDL below 70 E78.5 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 R39.81 Atypical chest pain R07.89 Acquired hypothyroidism E03.9 Chronic pain syndrome G89.4 MEDICATION USE AGREEMENT [id number] Cirrhosis of liver ([facility]) K74.60 THAD on CPAP G47.33, Z99.89 Wheelchair dependent Z99.3 Pancytopenia ([facility]) D61.818 Ambulatory dysfunction R26.2 DM type 2 with diabetic peripheral neuropathy ([facility]) E11.42 Insomnia G47.00 Recurrent major depressive disorder, in partial remission ([facility]) F33.41 Impaired mobility and ADLs Z74.09, Z78.9 Generalized weakness R53.1 Gastroesophageal reflux disease K21.9 History of Achilles tendon repair Z98.890 Anemia D64.9 Fibromyalgia M79.7 Achilles tendinitis, right leg M76.61 Thrombocytopenia ([facility]) D69.6 Iron deficiency anemia due to chronic blood loss D50.0 Splenomegaly R16.1 Esophagitis K20.90 Esophageal varices ([facility]) I85.00 Uncontrolled type 2 diabetes mellitus with hyperglycemia ([facility]) E11.65 Cardiomegaly I51.7 SOB (shortness of breath) R06.02 Melena K92.1 Vancomycin resistant enterococcus culture positive Z22.39 Urinary catheter dysfunction ([facility]) T83.018A Cyst of pancreas K86.2 Calculus of kidney N20.0 Acute on chronic heart failure with preserved ejection fraction (HFpEF) ([facility]) I50.33 Anginal chest pain at rest ([facility]) I20.8 Portal hypertensive gastropathy ([facility]) K76.6, K31.89 Lactic acidosis E87.2 Food [...] DAILY 90 Tab 3 OneTouch Delica Plus Iworub38I TESTING once daily 100 Each 3 OneTouch Verio In Vitro Strip (Glucose Blood) TESTING once daily 100 Strip 3 Lidocaine-Prilocaine 2.5-2.5 % External Cream (Emla) Apply topically to affected area as needed for Other (for port). APPLY TO SKIN OVER MEDIPORT & COVER 1HR PRIOR TO ACCESSING. 30 g 3 Dexcom G6 Geological Drafter Device Use as directed. 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49 education: 12 service: no hobbies/interests: reading transfusions: no exercise: no diet: no jewish/temple: Raised [place] marital status: 2nd time 11/15 children: 1 [...] Age of Onset Heart Disorder Father of [place] at age 61 Diabetes Father Heart Disorder Mother of [place] age 72 Cancer None Arthritis None Stroke [...] did not help documented in this encounter Plan of Treatment Upcoming Encounters Date Type Specialty Care Team Description 05/21/2021 Immunization/Injection Hematology Oncolog y Nurse, Med 4 [address] [facility] [place] [address] [phone] 05/26/2021 Office Visit Cardiology Mega Hagen MD [address] [place] [address] [phone] 06/02/2021 Office Visit Pharmacy [address] [id number] 06/03/2021 Telemedicine Palliative Medicine Esperanza Painter MD [address] [place] [address] 06/07/2021 Nutrition Services Gastroenterology Melissa Omalley RDN [address] [place] [address] [phone] 06/11/2021 Office Visit Podiatry Prakash Martino, DPBelen [address] [place] [address] 07/06/2021 Office Visit Hematology Oncology Tono Sanchez MD [address] [place] [address] [phone] 07/22/2021 Office Visit Pulmonary Reynaldo Marquez MD [address] [facility] [place] [phone] 07/27/2021 Office Visit Gastroenterology Lyssa Stout CRNP [address] [place] [address] [phone] 09/09/2021 Imaging Radiology Pending Results Name Type Priority Associated Diagnoses Date /Time CK Lab Routine Chest pain, unspecified type 05/18/2021 1:31 PM EDT TROPONIN T, HIGH SENSITIVITY Lab Routine Chest pain, unspecified type 05/18/2021 1:31 PM EDT Scheduled Orders Name Type Priority Associated Diagnoses Orde r Schedule EKG EKG Routine Chest pain, unspecified type Ordered: 05/18/2021 CK Lab Routine Chest pain, unspecified type Expected: 05/18/2021 (Approximate), Expires: 05/18/2022 TROPONIN T, HIGH SENSITIVITY Lab Routine Chest pain, unspecified type Expected: 05/18/2021 (Approximate), Expires: 05/18/2022 Scheduled Referrals Name Type Priority Associated Diagnoses [...] of this encounter Implants Implanted Type Area Catalog Specialist Device Identifier Shelf Expiration Date Model / Serial / Lot Microtech Sure Clip Implanted:Qty: 2 on 06/03/2020 by Janis Hatch DO at OR [facility] Clip N/A: Colon 04/21/2022 [facility]-F-26-2 35-C-R / / [id number] documented as of this encounter Procedures Procedure Name Priority Date/Time Associated Diagnosis Comments XR CHEST 2 VIEWS STAT 05/18/2021 2:09 PM EDT Chest pain, unspecified type documented in [...] cardiopulmonary process seen radiographically. Performing Organization Address [facility] de Phone Number [facility] * COMPREHENSIVE METABOLIC PANEL (05/18/2021 1:31 PM EDT) BUN 8 6 - 20 mg/dL LABORATORY STAT E [facility] 56-02 Creatinine 0.6 0.5 - 1.0 mg/dL LAB[facility]ATORY [place] [address] Estimated Glomerular Filtration Rate >90.0Comment:If patient is , multiply estimated GFR by 1.159. >=60.0 mL/min LAB[facility]ATORY [place] [address]- Sodium 145 135 - 146 mmol/L [facility] [place] 56-02 Potassium 3.8 3.5 - 5.1 mmol/L [facility] [place] 56- Chloride 111(H) 98 - 107 mmol/L [facility] [place] [address]-02 CO2 24 22 - 32 mmol/L [facility] [place] [address]- Anion Gap 10 7 - 15 mmol/L LABORATORY [facility] [place] [address]- Glucose 141(H) 70 - 120 mg/dL [facility]AT[facility] [place] [address]- Albumin 3.2(L) 3.8 - 5.0 g/dL LAB[facility]AT[facility] [place] 56-02 AST 58(H) 10 - 35 U/L LABORATORY STAT E [facility] 56-02 Alkaline Phosphatase 164(H) 35 - 130 U/L [place] [address]-02 Bilirubin, Total 0.9 <=1.2 mg/dL LAB[facility]AT[facility] [place] [address]- Calcium 8.6 8.4 - 10.2 mg/dL LAB[facility] [place] 56- Protein 6.2 6.0 - 8.3 g/dL LAB[facility] [place] [address] ALT 33 10 - 35 U/L LABORATORY STAT E [place] [address]-02 Specimen Blood - Venous blood specime n (specimen) Performing Organization Address [facility]/ZIP Co de Phone Number [facility] 56- [address] [place] [address] documented in this encounter Visit Diagnoses Diagnosis Chest pain, unspecified type- Primary Risk and functional assessment Screening for unspecified condition documented in this encounter Advance Directives Documents on File Type Date Recorded 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
--- OUTSIDE RECORDS SUMMARY | 2023-05-10 20:31 | External Medical Summary ---
Author Name Unknown Address Unknown Organization K01:LABORATORY [facility] - [address] [place] [address] Laboratory Report Ordering Provider Test Date Status JACOB CORBETT 05/14/2021 13:08:31 Final Observation Date Value Abnormality Reference (Units ) Status Iron 05/14/2021 13:08:31 45 33-151 (ug /dL) Final Iron-binding capacity 05/14/2021 13:08:31 292 250-425 (ug/dL) Final Transferrin Sat % 05/14/2021 13:08:31 15 15 -55 (%) Final Performing Location LABORATORY [facility] - [address] [place] [address]
--- OUTSIDE RECORDS SUMMARY | 2023-05-10 20:31 | External Medical Summary ---
Author Name Unknown Address Unknown Organization K09:[facility] [place] [address] [address] Laboratory Report Ordering Provider Test Date Status JACOB SUH 05/18/2021 13:31:34 Final Observation Date Value Abnormality Reference (Units ) Status BUN 05/18/2021 13:31:34 8 6-20 (mg/dL) Final Creatinine 05/18/2021 13:31:34 0.6 0.5-1.0 (mg/dL) Final Glomerular filtration rate/1.73 sq M.predicted [Volume Rate/Area] in Serum, Plasma or Blood by Creatinine-based formula (CKD-EPI) 05/18/2021 13:31:34 >90.0 >=60.0 (mL/min) Final Performing Location [facility] [place] [address] [address]
--- OUTSIDE RECORDS SUMMARY | 2023-05-10 20:31 | External Medical Summary ---
Author Name UNSPECIFIED Address Unknown Organization [facility] History of Encounters Reason for Assessment: Recertification ( follow-up) reassessment Functional Assessment Frequency Of Pain Interferin g With Patient's Activity Or Movement: Daily, but not constantly When Dyspneic: With moderate exerti on (e.g., while dressing, using commode or bedpan, walking distances less than 20 feet) Urinary Incontinence or Urin nick Catheter Present: Patient is incontinent Bowel Incontinence Frequency: Very rarel y or never has bowel incontinence Current Ability: Bathing: Unable to use the shower or tub, but able to participate in bathing self in bed, at the sink, in bedside chair, or on commode, with the assistance or supervision of another person throughout the bath. Current Ability: Ambulation: Bedfast, un able to ambulate or be up in a chair. Current: Management Of Injec table Medications: Able to take injectable medication(s) at the correct times if: (a) individual syringes are prepared in advance by another person; OR (b) another person develops a drug diary or chart. 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
--- OUTSIDE RECORDS SUMMARY | 2023-05-10 20:31 | External Medical Summary ---
Author Name Unknown Address Unknown Organization K01:LABORATORY [facility] - [address] [place] [address] Laboratory Report Ordering Provider Test Date Status JACOB SUH 05/18/2021 13:31:34 Final Observation Date Value Abnormality Reference (Units ) Status NILA 05/18/2021 13:31:34 54 26-192 (U/ L) Final Performing Location LAB[facility]ATORY [facility] - [address] [place] [address]
--- OUTSIDE RECORDS SUMMARY | 2023-05-10 20:31 | External Medical Summary ---
Author Name Unknown Address Unknown Organization K09:[facility]ORY [facility] [place] [address] Laboratory Report Ordering Provider Test Date Status JACOB CORBETT 05/14/2021 13:08:31 Final Observation Date Value Abnormality Reference (Units ) Status Nucleated erythrocytes/100 leukocytes [Ratio] in Blood by Automated count 05/14/2021 13:08:31 Final Anisocytosis [Presence] in Blood by Light microscopy 05/14/2021 13:08:31 Slight Abnormal None Seen Final Elliptocytes [Presence] in Blood by Light microscopy 05/14/2021 13:08:31 Few Abnormal None Seen Final Hypochromia [Presence] in Blood by Light microscopy 05/14/2021 13:08:31 Slight Abnormal None Seen Final Macrocytes [Presence] in Blood by Light microscopy 05/14/2021 13:08:31 Present Abnormal None Seen Final Target cells [Presence] in Blood by Light microscopy 05/14/2021 13:08:31 Few Abnormal None Seen Final Dacrocytes [Presence] in Blood by Light microscopy 05/14/2021 13:08:31 Few Abnormal None Seen Final Performing Location [facility] [place] [address] [address]
--- OUTSIDE RECORDS SUMMARY | 2023-05-10 20:31 | External Medical Summary ---
Author Name Unknown Address Unknown Organization K09:[facility] [address] [place] [address] Laboratory Report Ordering Provider Test Date Status JACOB CORBETT 05/14/2021 13:08:31 Final Observation Date Value Abnormality Reference (Units ) Status SYNC LEUKOCYTES IN BLOOD BY AUTOMATED COUNT 05/14/2021 13:08:31 2.75 Below low normal 4.00-10.80 (K/uL) Final Segs 05/14/2021 13:08:31 56.8 40.0-75.0 (%) Final Lymphs % 05/14/2021 13:08:31 20.0 18.0-42.0 (%) Final Monos 05/14/2021 13:08:31 13.8 Above high normal 1.0-11.0 (%) Final Eosinophils 05/14/2021 13:08:31 8.7 Above high normal 0.0-6.0 (%) Final Basos 05/14/2021 13:08:31 0.7 0.0-2.0 (%) Final Absolute Segs 05/14/2021 13:08:31 1.56 Below low normal 1.80-7.70 (K/uL) Final Lymphs, absolute 05/14/2021 13:08:31 0.55 Below low normal 1.00-4.80 (K/ul) Final Monos, Abs 05/14/2021 13:08:31 0.38 0.00-1.10 (K/uL) Final Eos, Abs 05/14/2021 13:08:31 0.24 0.00-0.70 (K/uL) Final Basos, Abs 05/14/2021 13:08:31 0.02 0.00-0.20 (K/uL) Final Performing Location [facility] [address] [place] [address]
--- OUTSIDE RECORDS SUMMARY | 2023-05-10 20:31 | External Medical Summary ---
Author Name Unknown Address Unknown Organization K01:LABORATORY [facility] - [address] [place] [address] Laboratory Report Ordering Provider Test Date Status JACOB CORBETT 05/14/2021 13:08:31 Final Observation Date Value Abnormality Reference (Units ) Status Ferritin 05/14/2021 13:08:31 59 13-150 (ng /mL) Final Performing Location [facility] - [address] [place] [address]
--- OUTSIDE RECORDS SUMMARY | 2023-05-10 20:32 | External Medical Summary ---
Author Name Unknown Address Unknown Organization K09:[facility] [place] [address] Laboratory Report Ordering Provider Test Date Status JACOB CORBETT 05/14/2021 13:08:31 Final Observation Date Value Abnormality Reference (Units ) Status WBC, Total 05/14/2021 13:08:31 2.75 Below low normal 4. 00-10.80 (K/uL) Final RBC 05/14/2021 13:08:31 2.69 Below low normal 3.8 5-5.15 (M/uL) Final Hemoglobin 05/14/2021 13:08:31 8.9 Below low normal 12 .0-15.3 (g/dL) Final HCT 05/14/2021 13:08:31 29.1 Below low normal 36. 0-45.2 (%) Final MCV 05/14/2021 13:08:31 108.2 Above high normal 81 .5-97.5 (fL) Final MCH 05/14/2021 13:08:31 33.1 27.0-34.0 (pg) Final MCHC 05/14/2021 13:08:31 30.6 Below low normal 32. 0-36.0 (g/dL) Final RDW 05/14/2021 13:08:31 22.4 Above high normal 11 .5-15.5 (%) Final Platelets 05/14/2021 13:08:31 93 Below low normal 140 -400 (K/uL) Final MPV 05/14/2021 13:08:31 Final Performing Location [facility] [place] [address]
--- OUTSIDE RECORDS SUMMARY | 2023-05-10 20:33 | External Medical Summary | Summary of Care ---
Author Name Unknown Organization [facility] [place] [address] Care Team Providers Care Porcelain Finish Sprayer Name Role Phone Vanita Dunn MD Primary Care Provid er Reason for Visit * Reason Onset Date Comments Order Request 05/10/2021 Encounter Details Date Type Department Care Team Description 05/10/2021 Telephone [facility] [address] [place] [address] Vanita Dunn MD [address] [place] [address] Order Request Allergies Active Allergy Reactions Severity Noted Date Comments Adhesive Tape Itching 04/29/2020 Penicillins Rash 02/12/2008 Perflutren Protein A Microsph 2019 Definity-lower back pain documented as of this encounter (statuses as of 05/12/2021) Medications Medication Sig Dispensed Refills Start Date [...] 120 Vial 11 10/02/2019 Active nystatin (NYSTOP) 270091 UNIT/GM powder Apply topically to affected area [...] 60 Each 3 07/27/2020 Active Dexcom G6 Labor Relations Supervisor Device Use as directed. To test [...] Strip 3 10/29/2020 Active OneTouch Delica Plus [id number] TESTING once daily 100 Each 3 10/29/2020 Active Levothyroxine Sodium 200 MCG Oral Tablet (Levoxyl) TAKE 1 TABLET BY MOUTH ONCE DAILY 90 Tab 3 11/02/2020 Active Oxybutynin Chloride 5 MG Oral Tablet (Ditropan) TAKE 1 TABLET BY MOUTH TWICE DAILY 60 Tab 5 11/02/2020 Active Gabapentin 300 MG Oral Capsule (Neurontin) TAKE 1 CAPSULE BY MOUTH EVERY MORNING, 1 CAPSULE MIDDAY AND 2 CAPSULES IN THE EVENING 180 Cap 5 11/02/2020 Active Linzess 290 MCG Oral Capsule [...] Active Additional Information Patient taking differently: 2 [place] Nasal DAILY PRN, Congestion, Informant: Pharmacy, Reported [...] mouth daily. 68 Cap 0 04/29/2021 Active documented as of this encounter (statuses as of 05/12/2021) Active Problems Problem Noted Date Food insecurity [...] as of this encounter (statuses as of 05/12/2021) Resolved Problems Problem Noted Date Resolved Date [...] pain 01/24/2012 01/17/2017 Genetic Sleep Disorder Research Other*[id number] 05/13/2011 04/07/2016 Obstructive sleep apnea 01/18/2011 12/27/19 [...] as of this encounter (statuses as of 05/12/2021) Immunizations Name Administration Dates Next Due COVID-19 [...] states she has to talk to her embedded case manager from [facility] "[place]". Fax # was given so [...] your assistance with this bed order, Frida MICHAEL * Telephone Encounter - Janett Garcia OSA - 05/10/2021 8:40 AM EDT An order was requested for this patient. Name of Requesting Provider: patient Order Requested: new bed Diagnosis/Reason for Request: bed broke (won't go up or down and uncomfortable) Does the order need to be faxed somewhere? If so, where?: unsure Fax Number, if applicable: Call Back Number: [phone] If the caller is not a current patient, please advise the patient to call their current PCP to havethe order's prior to being seen in our office. The patient was informed that our providers would not order anything (medication, labs, etc.) prior to being seen. documented in this encounter Plan of Treatment Upcoming Encounters Date Type Specialty Care Team Description 05/14/2021 Office Visit Podiatry Prakash Martino, SIRE[place] [address] [place] [address] 05/14/2021 Laboratory Laboratory [place], Lab Scenery [address] [place] [address] [phone] 05/21/2021 Immunization/Injection Hematology Oncolog y Nurse, Med 4 [address] [place] [address] [phone] 06/02/2021 Office Visit Pharmacy [facility] [address], [place] [phone] 06/03/2021 Telemedicine Palliative Medicine Esperanza Painter MD [address] [place], [place] [phone] 06/07/2021 Nutrition Services Gastroenterology Melissa Omalley, [place] [address] [place], [place] [phone] 07/06/2021 Office Visit Hematology Oncology Tono Sanchez MD [address] [place] [address] [phone] 07/22/2021 Office Visit Pulmonary Reynaldo Marquez MD [address] [place], [place] [phone] 07/27/2021 Office Visit Gastroenterology Lyssa Stout CRNP [address] [place] [address] [phone] 09/09/2021 Imaging Radiology Health Maintenance Due Date [...] of this encounter Implants Implanted Type Area Mosaic Technician Device Identifier Shelf Expiration Date Model / Serial / Lot Microtech Sure Clip Implanted:Qty: 2 on 06/03/2020 by Janis Hatch DO at OR [facility] Clip N/A: Colon 04/21/2022 [facility]-F-26-2 35-C-R / / [id number] documented as of this encounter Advance Directives Documents on File Type Date Recorded 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
--- OUTSIDE RECORDS SUMMARY | 2023-05-10 20:33 | External Medical Summary | Summary of Care ---
Author Name Unknown Organization [facility] Address [place] [address] Care Team Providers Care Construction Specialist Name Role Phone Vanita Dunn MD Primary Care Provid er Reason for Visit * Reason Onset Date Comments Order Request 05/10/2021 Encounter Details Date Type Department Care Team Description 05/10/2021 Telephone [facility] [address] [place] [address] Vanita Dunn MD [address] [place] [address] Order Request Allergies Active Allergy [...] 120 Vial 11 10/02/2019 Active nystatin (NYSTOP) 548697 UNIT/GM powder Apply topically to affected area [...] 60 Each 3 07/27/2020 Active Dexcom G6 Environmental Aide Device Use as directed. 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 05/13/2011 04/07/2016 Obstructive sleep apnea 01/18/2011 12/27/19 [...] Fax Number, if applicable: Call Back Number: [phone] If the caller is not a current [...] Team Description 05/14/2021 Office Visit Podiatry Prakash Martino DPM [address] [place] [address] 05/14/2021 Laboratory Laboratory [facility] [address] [place] [address] [phone] 05/21/2021 Immunization/Injection Hematology Oncolog y Nurse, Med 4 [address] [place] [address] [phone] 06/02/2021 Office Visit [address] [address] [phone] 06/03/2021 Telemedicine Palliative Medicine Esperanza Painter MD [address] [place] [address] 06/07/2021 Nutrition Services Gastroenterology Melissa Omalley, SAMANTHA [address] [place], [place] [address] 07/06/2021 Office Visit Hematology Oncology Tono Sanchez MD 200 [facility] [place] [address] [phone] 07/22/2021 Office Visit Pulmonary Reynaldo Marquez MD [address] [place] [facility] [place] [address] 07/27/2021 Office Visit Gastroenterology Lyssa Stout CRNP [address] [place] [address] [phone] 09/09/2021 Imaging Radiology Health Maintenance Due Date [...] of this encounter Implants Implanted Type Area Pairer Inspector Device Identifier Shelf Expiration Date Model / Serial / Lot Microtech Sure Clip Implanted:Qty: 2 on 06/03/2020 by Janis Hatch DO at OR [facility] Clip N/A: Colon 04/21/2022 [facility]-F-26-2 35-C-R / / [id number] documented as of this encounter Advance Directives Documents on File Type Date Recorded Patient Cigar Inspector 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 Agents on File Name Relationship Healthcare Agent [facility] Communication Syed Bustos Spouse Emergency Contact
--- OUTSIDE RECORDS SUMMARY | 2023-05-10 20:33 | External Medical Summary | Summary of Care ---
Author Name Unknown Organization [facility] Address [place] [address] Care Team Providers Care Crm Architect Name Role Phone Vanita Dunn MD Primary Care Provid er Reason for Visit * Reason Onset Date Comments Order Request 05/10/2021 Encounter Details Date Type Department Care Team Description 05/10/2021 Telephone [facility] [address] [place] [address] Vanita Dunn MD [address] [place] [address] Order Request Allergies Active Allergy Reactions Severity Noted Date Comments Adhesive Tape Itching 04/29/2020 Penicillins Rash 02/12/2008 Perflutren Protein A Microsph 2019 Definity-lower back pain documented as of this encounter (statuses as of 05/11/2021) Medications Medication Sig Dispensed Refills Start Date [...] 120 Vial 11 10/02/2019 Active nystatin (NYSTOP) 794626 UNIT/GM powder Apply topically to affected area [...] 60 Each 3 07/27/2020 Active Dexcom G6 Weapons Officer Device Use as directed. To test [...] Strip 3 10/29/2020 Active OneTouch Delica Plus [id number] TESTING once daily 100 Each 3 10/29/2020 [...] Active Additional Information Patient taking differently: 2 [place] Nasal DAILY PRN, Congestion, Informant: Pharmacy, Reported [...] as of this encounter (statuses as of 05/11/2021) Active Problems Problem Noted Date Food insecurity [...] breath) 01/30/2021 Uncontrolled type 2 diabetes mellitus [facility] hyperglycemia 07/15/2020 Esophagitis 07/06/2020 Esophageal varices 07/06/2020 [...] as of this encounter (statuses as of 05/11/2021) Resolved Problems Problem Noted Date Resolved Date [...] pain 01/24/2012 01/17/2017 Genetic Sleep Disorder Research Other*[id number] 05/13/2011 04/07/2016 Obstructive sleep apnea 01/18/2011 12/27/19 [...] as of this encounter (statuses as of 05/11/2021) Immunizations Name Administration Dates Next Due COVID-19 [...] your assistance with this bed order, Frida AG * Telephone Encounter - Janett Garcia OSA - 05/10/2021 8:40 AM EDT An order was requested for this patient. Name of Requesting Provider: patient Order Requested: new bed Diagnosis/Reason for Request: bed broke (won't go up or down and uncomfortable) Does the order need to be faxed somewhere? If so, where?: unsure Fax Number, if applicable: Call Back Number: [phone] If the caller is not a current [...] Office Visit Podiatry Prakash Martino, SIRENA [address] [place] [address] [phone] 05/14/2021 Laboratory Laboratory [facility] [address] [place] [address] [phone] 05/21/2021 Immunization/Injection Hematology Oncolog y Nurse, Med 4 [address] [place] [address] [phone] 06/02/2021 Office Visit Pharmacy [facility] [address] [place] [address] [phone] 06/03/2021 Telemedicine Palliative Medicine Esperanza Painter MD [address] [place] [address] [phone] 06/07/2021 Nutrition Services Gastroenterology Melissa Omalley RDN [address] [place] [address] [phone] 07/06/2021 Office Visit Hematology Oncology Tono Sanchez MD [address] [place] [address] [phone] 07/22/2021 Office Visit Pulmonary Reynaldo Marquez MD [address] [place] [address] [phone] 07/27/2021 Office Visit Gastroenterology Lyssa Stout CRNP [address] [facility] [place] [address] [phone] 09/09/2021 Imaging Radiology Health Maintenance Due Date [...] of this encounter Implants Implanted Type Area Ship'S Cook Device Identifier Shelf Expiration Date Model / Serial / Lot Microtech Sure Clip Implanted:Qty: 2 on 06/03/2020 by Janis Hatch DO at OR [facility] Clip N/A: Colon 04/21/2022 [facility]-F-26-2 35-C-R / / [id number] documented as of this encounter Advance Directives Documents on File Type Date Recorded Patient Personnel Consultant 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
--- OUTSIDE RECORDS SUMMARY | 2023-05-10 20:33 | External Medical Summary | Summary of Care ---
Author Name Unknown Organization [facility] Address [place] [address] Care Team Providers Care Plush Finisher Name Role Phone Vanita Dunn MD Primary Care Provid er Reason for Visit * Reason Onset Date Comments Advice 05/11/2021 Encounter Details Date Type Department Care Team Description 05/11/2021 Telephone [facility] [address] [place] [address] Vanita Dunn MD [address] [place] [address] Advice Allergies Active Allergy Reactions [...] 120 Vial 11 10/02/2019 Active nystatin (NYSTOP) 230592 UNIT/GM powder Apply topically to affected area [...] 60 Each 3 07/27/2020 Active Dexcom G6 Wagon Driver Salesperson Device Use as directed. To test [...] Strip 3 10/29/2020 Active OneTouch Delica Plus Cabcet12C TESTING once daily 100 Each 3 10/29/2020 [...] Active Additional Information Patient taking differently: 2 [place] Nasal DAILY PRN, Congestion, Informant: Pharmacy, Reported [...] mouth daily. 30 Tab 5 05/11/2021 Active documented as of this encounter (statuses [...] pain 01/24/2012 01/17/2017 Genetic Sleep Disorder Research Other*[id number] 05/13/2011 04/07/2016 Obstructive sleep apnea 01/18/2011 12/27/19 [...] Encounter - Michaelle Lindquist LPN - 05/12/2021 1:54 PM EDT Pt aware that there was no phone call to her. * Telephone Encounter - Syed León OSA - 05/11/2021 3:11 PM EDT Pt states she received a call from her pcp's office but nothing is documented in the chart. Please advise documented in this encounter Plan of Treatment Upcoming Encounters Date Type Specialty Care Team Description 05/14/2021 Office Visit Podiatry Prakash Martino, SIRENA [address] [place] [address] 05/14/2021 Laboratory Laboratory Johanna Bojoruqez [facility] [address] [place] [address] [phone] 05/21/2021 Immunization/Injection Hematology Oncolog y Nurse, Med 4 [address] [place] [address] [phone] 06/02/2021 [facility] [address] [place] [address] [phone] 06/03/2021 Telemedicine Palliative Medicine Esperanza Painter MD [address] [place] [address] 06/07/2021 Nutrition Services Gastroenterology Melissa Omalley RDN [address] [address] 07/06/2021 Office Visit Hematology Oncology Tono Sanchez MD [address] [place] [address] [phone] 07/22/2021 Office Visit Pulmonary Reynaldo Marquez MD [address] [place] [address] 07/27/2021 Office Visit Gastroenterology Lyssa Stout CRNP [address] [place] [address] [phone] 09/09/2021 Imaging Radiology Health Maintenance Due Date [...] this encounter Implants Implanted Type Area Manager Application Development Device Identifier Shelf Expiration Date Model / Serial / Lot Microtech Sure Clip Implanted:Qty: 2 on 06/03/2020 by Janis Hatch DO at OR [facility] Clip N/A: Colon 04/21/2022 [facility]-F-26-2 35-C-R / / [id number] documented as of this encounter Advance Directives Documents on File Type Date Recorded Patient Medical Technologist Hematology 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 Relationship Healthcare Agent Romainne p Communication Syed Bustos Spouse Emergency Contact
--- OUTSIDE RECORDS SUMMARY | 2023-05-10 20:33 | External Medical Summary | Summary of Care ---
Author Name Unknown Organization [facility] Address [place] [address] Care Team Providers Care Complex Care Nurse Practitioner Name Role Phone Vanita Dunn MD Primary Care Provid er Reason for Visit * Reason Onset Date Comments Order Request 05/10/2021 Encounter Details Date Type Department Care Team Description 05/10/2021 Telephone [facility] [address] [place] [address] Vanita Dunn MD [address] [place] [address] Order Request Allergies Active Allergy [...] 120 Vial 11 10/02/2019 Active nystatin (NYSTOP) 524900 UNIT/GM powder Apply topically to affected area [...] 60 Each 3 07/27/2020 Active Dexcom G6 Drawer Waxer Device Use as directed. To test blood [...] Strip 3 10/29/2020 Active OneTouch Delica Plus Dgabde37D TESTING once daily 100 Each 3 10/29/2020 [...] Active Additional Information Patient taking differently: 2 [place] Nasal DAILY PRN, Congestion, Informant: Pharmacy, Reported [...] 2700 mL 2 03/29/2021 Active Potassium Chloride Eslena ER 10 MEQ Oral Tablet Extended Release [...] pain 01/24/2012 01/17/2017 Genetic Sleep Disorder Research Other*[id number] 05/13/2011 04/07/2016 Obstructive sleep apnea 01/18/2011 12/27/19 [...] Fax Number, if applicable: Call Back Number: [phone] If the caller is not a current [...] Office Visit Podiatry Prakash Martino DPM [address] [place] [address] 05/14/2021 Laboratory Laboratory [facility] [place] [address] [phone] 05/21/2021 Immunization/Injection Hematology Oncolog y Nurse, Med 4 [address] [place] [address] [phone] 06/02/2021 Office Visit [address] [address] [phone] 06/03/2021 Telemedicine Palliative Medicine Esperanza Painter MD [address] [place] [address] 06/07/2021 Nutrition Services Gastroenterology Melissa Omalley, SAMANTHA [address] [place], [place] [address] 07/06/2021 Office Visit Hematology Oncology Tono Sanchez MD [address] [place] [address] [phone] 07/22/2021 Office Visit Pulmonary Reynaldo Marquez MD [address] [place] [facility] [place] [address] 07/27/2021 Office Visit Gastroenterology Lyssa Stout CRNP [address] [place] [address] [phone] 09/09/2021 Imaging Radiology Health Maintenance Due Date [...] of this encounter Implants Implanted Type Area Oncology Patient Navigator Device Identifier Shelf Expiration Date Model / Serial / Lot Microtech Sure Clip Implanted:Qty: 2 on 06/03/2020 by Janis Hatch DO at OR [facility] Clip N/A: Colon 04/21/2022 [facility]-F-26-2 35-C-R / / [id number] documented as of this encounter Advance Directives Documents on File Type Date Recorded Patient Rn Liaison 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
--- OUTSIDE RECORDS SUMMARY | 2023-05-10 20:33 | External Medical Summary | Summary of Care ---
Author Name Unknown Organization [place] [address] Care Team Providers Care Power Originator Name Role Phone Kojo Hinojosa MD Primary Care Provid er Reason for Visit * Reason Comments eRx-Medication Refill Encounter Details Date Type Department Care Team Description 05/11/2021 Refill [facility] [address] [place] [address] Alexandra Caceres, [address] [place] [address] Allergies Active Allergy Reactions Severity Noted Date Comments Adhesive Tape Itching 04/29/2020 Penicillins Rash 02/12/2008 Perflutren Protein A Microsph 2019 Definity-lower back pain documented as of this encounter (statuses as of 05/13/2021) Medications Medication Sig Dispensed Refills Start Date [...] 120 Vial 11 10/02/2019 Active nystatin (NYSTOP) 708972 UNIT/GM powder Apply topically to affected area [...] 60 Each 3 07/27/2020 Active Dexcom G6 Manager Qa Device Use as directed. To test blood [...] Strip 3 10/29/2020 Active OneTouch Delica Plus Wbxdze07Y TESTING once daily 100 Each 3 10/29/2020 [...] Active Additional Information Patient taking differently: 2 [place] Nasal DAILY PRN, Congestion, Informant: Pharmacy, Reported [...] THE EVENING. 360 Cap 1 05/13/2021 Active Oxybutynin Chloride 5 MG Oral Tablet (Ditropan) TAKE 1 TABLET BY MOUTH TWICE DAILY 60 Tab 5 11/02/2020 1 Discontinued Gabapentin 300 MG Oral Capsule (Neurontin) TAKE 1 CAPSULE BY MOUTH EVERY MORNING, 1 CAPSULE MIDDAY AND 2 CAPSULES IN THE EVENING 180 Cap 5 11/02/2020 1 Discontinued documented as of this encounter (statuses as of 05/13/2021) Active Problems Problem Noted Date Food insecurity [...] as of this encounter (statuses as of 05/13/2021) Resolved Problems Problem Noted Date Resolved Date [...] pain 01/24/2012 01/17/2017 Genetic Sleep Disorder Research Other*[id number] 05/13/2011 04/07/2016 Obstructive sleep apnea 01/18/2011 12/27/19 [...] as of this encounter (statuses as of 05/13/2021) Immunizations Name Administration Dates Next Due COVID-19 [...] Telephone Encounter - Kojo Hinojosa MD - 05/13/2021 8:16 PM EDT Signed Prescriptions: Disp Refills Oxybutynin Chloride 5 MG Oral Tablet (Ditr*180 Tab1 Sig: TAKE 1 TABLET BY MOUTH TWICE DAILY Authorizing Provider: KOJO HINOJOSA Gabapentin 300 MG Oral Capsule (Neurontin) 360 Cap1 Sig: TAKE 1 CAPSULE BY MOUTH EVERY MORNING, 1 CAPSULE MIDDAY AND 2 CAPSULES IN THE EVENING. Authorizing Provider: KOJO HINOJOSA * Telephone Encounter - Jayme Flores [facility] - 05/13/2021 11:01 AM EDT Pending Prescriptions: Disp Refills Oxybutynin Chloride 5 MG Oral Tablet (Ditr*180 Tab1 Sig: TAKE 1 TABLET BY MOUTH TWICE DAILY Gabapentin 300 MG Oral Capsule (Neurontin) 360 Cap1 Sig: TAKE 1 CAPSULE BY MOUTH EVERY MORNING, 1 CAPSULE MIDDAY AND 2 CAPSULES IN THE EVENING. * Telephone Encounter - Jayme Flores [facility] - 05/13/2021 11:00 AM EDT Pending Prescriptions: Disp Refills Oxybutynin Chloride 5 MG Oral Tablet (Ditr*180 Tab1 Sig: TAKE 1 TABLET BY MOUTH TWICE DAILY Gabapentin 300 MG Oral Capsule (Neurontin) 360 Cap1 Sig: TAKE 1 CAPSULE BY MOUTH EVERY MORNING, 1 CAPSULE MIDDAY AND 2 CAPSULES IN THE EVENING. Last Office/Telemedicine Visit: 04/26/2021 Visit date not found If no future appointments scheduled, and last appointment is greater than a year ago, please schedule patient for a follow-up appointment Last date the medication was ordered: 11/02/20 Pharmacy: [facility] [id number] Is this request for a controlled substance?No Urine Drug Screen:No results found. However, due to the size of the patient record, not all encounters were searched. Please check Results Review for a complete set of results. Patient Phone Numbers Labs: Lab Results Component Value Date/Time CREAT 0.6 04/16/2021 05:54 PM CREAT 0.6 09/24/2020 05:16 PM POTASSIUM 3.8 04/16/2021 05:54 PM POTASSIUM 4.0 09/24/2020 05:16 PM TSH 0.02 (L) 04/05/2021 01:42 PM TSH 0.69 07/14/2020 04:24 PM LDLCALC 43 04/05/2019 06:40 AM LDLDIRECT 46 02/21/2020 11:43 AM ALT 25 04/16/2021 05:54 PM ALT 23 08/21/2020 04:35 PM HGBA1C 8.5 (H) 03/08/2021 03:40 AM HGBA1C 9.9 (H) 07/06/2020 05:24 AM documented in this encounter Plan of Treatment Upcoming Encounters Date Type Specialty Care Team Description 05/14/2021 Laboratory Laboratory [facility] [address] [place] [address] [phone] 05/18/2021 Office Visit Podiatry Prakash Martino, DPM [address] [place] [address] [phone] 05/21/2021 Immunization/Injection Hematology Oncolog y Nurse, Med 4 [address] [place] [address] [phone] 06/02/2021 Office Visit Pharmacy [facility] [address] [place], [place] [address] 06/03/2021 Telemedicine Palliative Medicine Esperanza Painter MD [address] [place], [place] [address] 06/07/2021 Nutrition Services Gastroenterology Melissa Omalley, RDN [address] [place] [address] [phone] 07/06/2021 Office Visit Hematology Oncology Tono Sanchez MD [address] [place] [address] [phone] 07/22/2021 Office Visit Pulmonary Reynaldo Marquez MD [address] [place], [place] [address] 07/27/2021 Office Visit Gastroenterology Lyssa Stout CRNP [address] [place] [address] [phone] 09/09/2021 Imaging Radiology Health Maintenance Due Date [...] this encounter Implants Implanted Type Area Clinical Practitioner Device Identifier Shelf Expiration Date Model / Serial / Lot Microtech Sure Clip Implanted:Qty: 2 on 06/03/2020 by Janis Hatch DO at OR [facility] Clip N/A: Colon 04/21/2022 [facility]-F-26-2 35-C-R / / [id number] documented as of this encounter Advance Directives Documents on File Type Date Recorded Patient Instruction Librarian 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
--- OUTSIDE RECORDS SUMMARY | 2023-05-10 20:34 | External Medical Summary | Summary of Care ---
[place] [address] Care Team Providers Care Securities Settlement Processor Name Role Phone Vanita Dunn MD Primary Care Provid er Reason for Visit * Reason Comments Consultation goals of care/sympto m management * Evaluate & Treat - Unlimited Visits (Within 30 days (routine)) Status Reason Specialty Diagnoses / Procedures Referred By Contact Referred To Contact Pending Review Specialty Services Required Hospice and Palliative Medicine / Palliative Medicine Diagnoses DNR (do not resuscitate) Type 2 diabetes mellitus with hemoglobin A1c goal of less than 7.0% (HCC) THAD on CPAP Restrictive lung disease Anginal chest pain at rest (HCC) Cirrhosis of liver without ascites, unspecified hepatic cirrhosis type (HCC) Obesity, morbid (more than 100 lbs over ideal weight or BMI > 40) (HCC) Iron deficiency anemia due to chronic blood loss Thrombocytopenia (HCC) Acute on chronic anemia Hospital discharge follow-up Portal hypertensive gastropathy (HCC) Vanita Dunn MD [address] [place] [id number] Encounter Details Date Type Department Care Team Description 04/29/2021 Office Visit Palliative Medicine, [facility] [address] [place] [address] Esperanza Painter MD [address] [place] [address] Cirrhosis of liver without ascites, unspecified hepatic cirrhosis type (HCC)*; Spastic quadriplegic cerebral palsy (HCC); Goals of care, counseling/discussion; Palliative care encounter Allergies Active Allergy Reactions Severity Noted Date Comments Adhesive Tape Itching 04/29/2020 Penicillins Rash 02/12/2008 Perflutren Protein A Microsph 2019 Definity-lower back pain documented as of this encounter (statuses as of 04/29/2021) Medications Medication Sig Dispensed Refills Start Date [...] 120 Vial 11 10/02/2019 Active nystatin (NYSTOP) 964615 UNIT/GM powder Apply topically to affected area [...] 60 Each 3 07/27/2020 Active Dexcom G6 Recreation Clerk Device Use as directed. To test [...] Dx E11.9 1 Each 3 09/14/2020 Active Nadolol 20 MG Oral Tablet (CORGARD)Indicatio ns:HTN, goal below 140/90 One daily 90 Tab 1 09/19/2020 Active Additional Information Patient taking differently: 20 mg Oral [id number], (No instructions reported), Informant: Pharmacy, Reported on 03/31/2021 Lidocaine-Prilocai ne 2.5-2.5 % External Cream (Emla)Indications: Iron deficiency anemia due to chronic blood loss,Pancytopenia (HCC) Apply topically to affected area as needed for Other (for port). APPLY TO SKIN OVER MEDIPORT & COVER 1HR PRIOR TO ACCESSING. 30 g 3 10/09/2020 Active OneTouch Verio In Vitro Strip (Glucose Blood) TESTING once daily 100 Strip 3 10/29/2020 Active OneTouch Delica Plus [id number] TESTING once daily 100 Each 3 10/29/2020 [...] Active Additional Information Patient taking differently: 2 [place] Nasal DAILY PRN, Congestion, Informant: Pharmacy, Reported [...] 500 mg by mouth daily. 0 Active Spironolactone 25 MG Oral Tablet (Aldactone) Take 0.5 Tabs by mouth daily. 30 Tab 5 03/03/2021 Active Nitroglycerin 0.4 MG Sublingual Tablet Sublingual [...] every day. 2700 mL 2 03/29/2021 Active traMADol HCl 50 MG Oral Tablet (Ultram)Indication s:Abdominal pain, left lower quadrant Take 1 Tab by mouth every 12 hours as needed for Pain, Moderate for up to 30 days. 60 Tab 0 03/29/2021 1 Active Potassium Chloride Selena ER 10 MEQ Oral Tablet Extended Release Take 10 mEq by mouth daily at noon. 0 Active Furosemide 20 MG Oral Tablet (Lasix) Take 1 Tab by mouth daily as needed. EDEMA 0 03/26/2021 Active NovoLOG FlexPen 100 UNIT/ML Subcutaneous Solution Pen-injector Inject under the skin three times a day before meals. 28 units Breakfast; 32 units Lunch and Supper. 0 03/24/2021 Active Lantus SoloStar 100 UNIT/ML Subcutaneous Solution Pen-injector (Insulin Glargine)Indicatio ns:Type 2 diabetes mellitus with hemoglobin A1c goal of less than 7.0% (HCC) inject 28 units under skin at bedtime 30 mL 3 04/07/2021 Active Trulicity 4.5 MG/0.5ML Subcutaneous Solution Pen-injector (Dulaglutide)Indic ations:Type 2 diabetes mellitus with hemoglobin A1c goal of less than 7.0% (HCC) Inject one pen (4.5 mg) under the skin once weekly 6 mL 3 04/23/2021 Active Sulfamethoxazole-T rimethoprim 800-160 MG Oral Tablet (Bactrim DS) Take 1 Tab by mouth 2 times a day. 20 Tab 0 04/27/2021 Active Senna-Docusate Sodium 8.6-50 MG Oral Tablet Take 1 Tab by mouth daily. 90 Tab 0 04/29/2021 Active Docusate Sodium 100 MG Oral Capsule (Colace) Take 1 Cap by mouth daily. 68 Cap 0 04/29/2021 Active Docusate Sodium 100 MG Oral Capsule (Colace) Take 1 Cap by mouth 2 times a day. 68 Cap 0 04/16/2021 1 Discontinue d(Refill) documented as of this encounter (statuses as of 04/29/2021) Active Problems Problem Noted Date Food insecurity [...] as of this encounter (statuses as of 04/29/2021) Resolved Problems Problem Noted Date Resolved Date [...] pain 01/24/2012 01/17/2017 Genetic Sleep Disorder Research Other*[id number] 05/13/2011 04/07/2016 Obstructive sleep apnea 01/18/2011 12/27/19 [...] as of this encounter (statuses as of 04/29/2021) Immunizations Name Administration Dates Next Due COVID-19 [...] Sign Reading Time Taken Comments Blood Pressure 132/75 04/29/2021 1:54 PM EDT Pulse 71 04/29/2021 1:54 PM EDT Temperature 36.4 C (97.5 F) 04/29/2021 1:54 PM ED T Respiratory Rate 16 04/29/2021 1:54 PM EDT Oxygen Saturation 93% 04/29/2021 1:54 PM EDT Inhaled Oxygen Concentration - - [...] this encounter Patient Instructions * Patient Instructions* Esperanza Painter MD - 04/29/2021 2:42 PM EDT Switch your evening dose of Colace to the Senna-docusate tablet. Senna is a stimulant laxative so you may feel more of an urge to pass your stool. If this is too much, go back to Colace as you were taking before. Read and fill out the [place] Advance Directive. documented in this encounter Progress Notes * Esperanza Painter MD - 04/29/2021 1:30 PM EDT Images from the original note were not included. Palliative Medicine Outpatient Consult Note [address] [address] Name: Shaina Bustos Date: 04/29/2021 Referring Provider: Vanita Dunn MD Reason for Consult: Goals of care; Pain and symptom management Patient accompanied by Syed, history obtained from patient and . HPI: Shaina Bustos is a 65 year old female with a primary diagnosis of NG cirrhosis, cerebral palsy, chronic constipation, type 2 DM (w/Dexcom), diastolic CHF, and others. She is wheelchair bound. She has had multiple ED visits to [facility], 13 in 2020, 6 of which resulted in hospital admission there. Overall she reports her biggest issue is her bowels. Brice says they are "sticky" and that when they have to go to doctor appts they skip her stool softeners and then things are worse the next day. Shedoes not feel the urge to pass stool much. I talked to her today about her health overall - full discussion below. In general, she does say she wants to continue living and fighting to "live forever" but then when she passes, she wants to be comfortable. She would not be ok with a quality of life where she is in a custodial or unable to talk to others. We also completed an advance directive today in the office. Palliative symptoms: Pain: None Nausea: no Vomiting: no Constipation: yes, reviewed Confusion: no Somnolence: no Dyspnea: no Mood: no Other: None ROS: See HPI. All other systems negative. Functional Status: - Palliative Performance Scale: 40% - Activities of Daily Living: (bolded items indicate areas of independence) 1/6 BADL (transfer, toilet, continence, bathe, dress self, feed self) 1/7 IADL (meds, transport, telephone, shop, housekeeping, meal prep, money management) - Ambulates: Wheelchair bound Patient Active Problem List Diagnosis Code Venous insufficiency I87.2 Spinal stenosis of lumbar region without neurogenic claudication M48.061 Cerebral palsy ([facility]) G80.9 HTN, goal below 140/90 I10 Chronic [...] of less than 7.0% ([facility]) E11.9 Vitamin D deficiency E55.9 Restrictive lung disease J98.4 Obesity, morbid (more than 100 lbs over ideal weight or BMI > 40) ([facility]) E66.01 Dyslipidemia, goal LDL below 70 E78.5 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 R39.81 Atypical chest pain R07.89 Acquired hypothyroidism E03.9 Chronic pain syndrome G89.4 MEDICATION USE AGREEMENT [id number] Cirrhosis of liver ([facility]) K74.60 THAD on CPAP G47.33, Z99.89 Wheelchair dependent Z99.3 Pancytopenia ([facility]) D61.818 Ambulatory dysfunction R26.2 DM type 2 with diabetic peripheral neuropathy ([facility]) E11.42 Insomnia G47.00 Recurrent major depressive disorder, in partial remission ([facility]) F33.41 Impaired mobility and ADLs Z74.09, Z78.9 Generalized weakness R53.1 Gastroesophageal reflux disease K21.9 History of Achilles tendon repair Z98.890 Anemia D64.9 Fibromyalgia M79.7 Achilles tendinitis, right leg M76.61 Thrombocytopenia ([facility]) D69.6 Iron deficiency anemia due to chronic blood loss D50.0 Splenomegaly R16.1 Esophagitis K20.90 Esophageal varices (HCC) I85.00 Uncontrolled type 2 diabetes mellitus with hyperglycemia ([facility]) E11.65 Cardiomegaly I51.7 SOB (shortness of breath) R06.02 Melena K92.1 Vancomycin resistant enterococcus culture positive Z22.39 Urinary catheter dysfunction (HCC) T83.018A Cyst of pancreas K86.2 Calculus of kidney N20.0 Acute on chronic heart failure with preserved ejection fraction (HFpEF) ([facility]) I50.33 Anginal chest pain at rest ([facility]) I20.8 Portal hypertensive gastropathy ([facility]) K76.6, K31.89 Lactic acidosis E87.2 Food insecurity Z59.4 Past Surgical History: Procedure Laterality Date BONE DEBRIDEMENT, FIRST 20 CM2 Right 04/16/2020 DEBRIDEMENT SKIN SUBCUTANEOUS TISSUE MUSCLE AND BONE performed by Josh Vazquez MD at OR [facility] DELIVERY 04/20/1982 COLONOSCOPY 04/21/2009 repeat in 10 years COLONOSCOPY, DIAGNOSTIC (RECTUM) 10/04/2016 normal bx, repeat 10 yrs/[facility] COLONOSCOPY, DIAGNOSTIC (RECTUM) N/A 06/03/2020 internal hemorrhoids/biopsies show adenomatous polyps/recall 5 years/COLONOSCOPY FLEXIBLE PROXIMAL DIAGNOSTIC performed by Janis Hatch DO at OR [facility] COLONOSCOPY, DIAGNOSTIC (RECTUM) 03/17/2020 poor prep / [facility] DENTAL SURGERY PROCEDURE NEC wisdom teeth x 4 DILATION AND CURETTAGE (D&C) EGD, FLEXIBLE, DIAGNOSTIC 10/04/2016 gastritis/[facility] EGD, FLEXIBLE, DIAGNOSTIC 01/11/2018 eso varices, retained food, repeat 1 yr/[facility] EGD, FLEXIBLE, DIAGNOSTIC N/A 06/03/2020 severe erosive esophagitis/non-bleeding grade II esophageal varices/gastritis/biopsies show inflammatory changes/repeat 3-4 months/ESOPHAGOGASTRODUODENOSCOPY (EGD), FLEXIBLE, TRANSORAL, DIAGNOSTIC per formed by Janis Hatch DO at OR [facility] EGD, FLEXIBLE, DIAGNOSTIC 11/27/2019 eso varices, portal hypertensive gastropathy, gastritis / [facility] EGD, FLEXIBLE, DIAGNOSTIC N/A 08/05/2020 large amount of food in stomach/repeat 1.5 years/ESOPHAGOGASTRODUODENOSCOPY (EGD), FLEXIBLE, TRANSORAL, DIAGNOSTIC performed by Janis Hatch DO at OR [facility] EGD, FLEXIBLE, DIAGNOSTIC N/A 03/10/2021 ESOPHAGOGASTRODUODENOSCOPY (EGD), FLEXIBLE, TRANSORAL, DIAGNOSTIC performed by Kris Blankenship MD at ENDOSCOPY [facility] IR VENOUS ACCESS MEDIPORT 10/05/2020 PELVIS/HIP JOINT SURGERY NEC teenager aid in walking REPAIR/GRAFT ACHILLES TENDON age 40 aid in walking Family History Problem Relation Age of Onset Heart Disorder Father of MA at age 61 Diabetes Father Heart Disorder Mother of MA age 72 Cancer None Arthritis None Stroke None Heart Disorder Sister Mi at age 46 Hypertension Sister Mental Disorder None Family Status Relation Status Son Alive Sis at age 2 days twin sister Sis Alive Sis Alive Bro Alive Fa Mo NONE (Not Specified) NONE (Not Specified) NONE (Not Specified) Sis (Not Specified) Sis (Not Specified) NONE (Not Specified) Social History Socioeconomic History Marital status: Spouse [...] file Gets together: Not on file Attends hoahaoism service: Not on file Active member of [...] file Social History Narrative 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 She has 2 sisters and 1 brother. She is the oldest. Relevant Medications: Current Outpatient Medications Medication Sig Dispense Refill Sulfamethoxazole-Trimethoprim 800-160 MG Oral Tablet (Bactrim DS) Take 1 Tab by mouth 2 times a day. 20 Tab 0 Trulicity 4.5 MG/0.5ML Subcutaneous Solution Pen-injector (Dulaglutide) Inject one pen (4.5 mg) under the skin once weekly 6 mL 3 Docusate Sodium 100 MG Oral Capsule (Colace) Take 1 Cap by mouth 2 times a day. 68 Cap 0 Lantus SoloStar 100 UNIT/ML Subcutaneous Solution Pen-injector (Insulin Glargine) inject 28 units under skin at bedtime 30 mL 3 Furosemide 20 MG Oral Tablet (Lasix) Take 1 Tab by mouth daily as needed. EDEMA NovoLOG FlexPen 100 UNIT/ML Subcutaneous Solution Pen-injector Inject under the skin three times a day before meals. 28 units Breakfast; 32 units Lunch and Supper. Potassium Chloride Selena ER 10 MEQ Oral [...] doses in 15 minutes 25 Tab 11 Spironolactone 25 MG Oral Tablet (Aldactone) Take 0.5 Tabs by mouth daily. 30 Tab 5 Cinnamon 500 MG Oral Capsule Take 500 [...] ONCE DAILY BEFORE BREAKFAST 90 Cap 1 Gabapentin 300 MG Oral Capsule (Neurontin) TAKE 1 CAPSULE BY MOUTH EVERY MORNING, 1 CAPSULE MIDDAY AND 2 CAPSULES IN THE EVENING 180 Cap 5 Levothyroxine Sodium 200 MCG Oral Tablet (Levoxyl) TAKE 1 TABLET BY MOUTH ONCE DAILY 90 Tab 3 Oxybutynin Chloride 5 MG Oral Tablet (Ditropan) TAKE 1 TABLET BY MOUTH TWICE DAILY 60 Tab 5 OneTouch Delica Plus [id number] TESTING once daily 100 Each 3 OneTouch Verio In Vitro Strip (Glucose Blood) TESTING once daily 100 Strip 3 Lidocaine-Prilocaine 2.5-2.5 % External Cream (Emla) Apply topically to affected area as needed forOther (for port). APPLY TO SKIN OVER MEDIPORT & COVER 1HR PRIOR TO ACCESSING. 30 g 3 Nadolol 20 MG Oral Tablet (CORGARD) One daily (Patient taking differently: Take 20 mg by mouth every morning.) 90 Tab 1 Dexcom G6 Recreation Clerk Device Use as directed. To test [...] With spacer 16 g 1 nystatin (NYSTOP) 669497 UNIT/GM powder Apply topically to affected area 3 times a day. 60 g 1 albuterol sulfate (PROVENTIL) (2.5 MG/3ML) 0.083% nebulizer solution Inhale 1 Vial via nebulizer every 6 hours as needed for Wheezing. 120 Vial 11 vitamin c (ASCORBIC ACID) 500 MG Tablet Take 500 mg by mouth daily. CENTRUM SILVER PO TABS Take 1 Tab by mouth daily. 1 Tab 0 Adhesive tape, Pcn [penicillins], and Perflutren protein a microsph PHYSICAL EXAMINATION: Constitutional: BP 132/75 (BP Site: Left Arm, BP Position: Sitting, BP Cuff Size: Large) | Pulse 71| Temp 36.4 C (97.5 F) (Temporal Artery) | Resp 16 | SpO2 93% , no acute distress, chronically ill, pleasant and cooperative, breathing ambient air comfortably, poor hygiene. Obese, wheelchair bound. HENT: normocephalic, atraumatic. Eyes: anicteric, sclera and conjunctiva normal. Lateral deviation of R eye. Neck: no stridor Chest: normal respiratory effort Abdominal: nondistended Extremities: no edema, no clubbing, no cyanosis Neuro: alert, oriented to person, place, and time Psych: normal mood and affect Labs: Reviewed in EMR, pertinent findings: Cr 0.6, AST 45, Alk Phos 177 Imaging: Reviewed in EMR, pertinent findings: Last CT A/P IMPRESSION 1. Ill-defined fat stranding surrounding the inferior mesenteric artery and vein may suggest vasculitis, that is slightly more prominent compared to CT dated 03/31/2021. Correlate with inflammatory markers. 2. Indeterminate hypodensity in the right adnexa. Consider nonurgent evaluation with transvaginal ultrasound. 3. Cirrhotic liver with splenomegaly and varices, sequela of portal hypertension, as above. Discussion with other physicians/team members: Case discussed with Dr Dunn (PCP) Decision-making Capacity: Does Patient have Decisional Capacity? Yes, but I think she may have limited decision making capacity for complex medical care. Does Patient have a Healthcare Agent? Yes, verbally designates Brice as primary surrogate and then Jayme as alternate. Discussion with Patient & Family: Met with patient and Brice. Introduced role of Outpatient Palliative Medicine team and reviewed symptoms as above. Reviewed patient's/family's understanding of current medical situation. She is unclear about the severity of her liver illness. She knows its "not working right" but feels a very dismal picture has been painted. Brice was wondering if transplant is an option which would then "make her so much better" and maybe even get rid of her diabetes. We talked about this thoroughly and the high risk of a transplant surgery given her obesity and poor functional status, and even they agreed the risk of surgery may be too great. They would like to hear from GI again about this though. Shaina is very fixated on telling her siblings that she is sick, which she plans to do on her birthday next week. She says she is unsure how to tell them. She was very fixated on the fact that hersiblings are not very involved in her life and brought it up multiple times. She says she thinks once they find out they may "jump". She seems frustrated her family is "all over the place" (in [place], [facility], etc) and she lives here with her husbands family. We practiced what to say to them but she still seems very upset that she will have to tell them this news. I tried to discuss goals of care, she rolls her eyes anytime the word "CPR" is said, but then says that ultimately she does want to be comfortable when she passes away. She is clear she would NOTwant to live in a custodial when she passes. We talked about what a "good" quality of life meansto her and she said one where she is able to interact with others and have Brice take care of her. She was very tearful discussing how she feels scared about how Brice will be when she passes. Discussed ACP as below Advanced Care Planning: [place]: Reviewed [place] Advance Directive with her. She said "if I don't do it now we won't do it at all," so I completed it with her o She was clear she does NOT want CPR when in a terminal/irreversible state. She does not want tubefeedings or to be an organ donor. o She designated Brice as primary surrogate and Jayme as alternate. o Signed by herself with two office staff unrelated in her care as witnesses. POLST: She would not participate in further discussion about CPR even at this time, as opposed to in AD where it is for when she is in an irreversible/terminal state Date of discussion: 04/29/2021 ASSESSMENT/PLAN: Shaina Bustos is a/an 65 year old female referred for consultation to Palliative Medicine with the primary diagnosis of: 1. NG Cirrhosis 2. Frailty - obese, wheelchair bound, frequent ED visits 3. Chronic constipation 4. Poor health literacy with background of likely intellectual disability 5. ?Anxiety (particularly over family situation) 6. Cerebral palsy 7. Type 2 DM, with Dexcom 8. Goals of care - remain home and comfortable, obtain more information, at end of life she does not want to be in a custodial and wants to be home Recommendations: 1. Advance Directive sent for scanning 2. Will reach out to GI to discuss further management & prognosis of her cirrhosis 3. For constipation, recommend changing her Colace BID to Senna-Colace at nighttime at least. Continue Linzess. 4. She is already established with [facility] for home health, I think she would benefit froma more robust home based palliative care program but they do not want to change at this time. 5. Will follow up by phone in a few weeks, otherwise f/u PRN. Total [id number] visit time was 65 minutes, of which 60 minutes were spent on counseling and/or coordination of care. Thank you for this consult. We appreciate the opportunity to take part in the care of your patient. Note routed back to referring provider and PCP. Esperanza Painter MD Palliative Medicine Physician [facility] [address] [place] [address] Office: [phone] Contact via [employer] (under name Esperanza Smith), M-F during business hours. 04/29/2021 documented in this encounter Plan of Treatment Upcoming Encounters Date Type Specialty Care Team Description 05/11/2021 Office Visit Gastroenterology Sergei Sanchez P, DO [address] [place] [address] [phone] 05/14/2021 Office Visit Podiatry Prakash Martino, DPBelen [address] [place] [address] [phone] 05/14/2021 Laboratory [facility], Lab Scenery [address] [facility] [place] [address] [phone] 05/21/2021 Immunization/Injection Hematology Oncolog y Nurse, Med [address] [place] [address] [phone] 06/02/2021 Office Visit Pharmacy [facility] [address] [place] [address] [phone] 06/03/2021 Telemedicine Palliative Medicine Esperanza Painter MD [address] [place] [address] [phone] 06/07/2021 Nutrition Services Gastroenterology Melissa Omalley, [place] [address] [address] [phone] 07/06/2021 Office Visit Hematology Oncology Tono Sanchez MD [address] [facility] [place] [address] [phone] 07/22/2021 Office Visit Pulmonary Reynaldo Marquez MD [address] [place] [address] [phone] 07/27/2021 Office Visit Gastroenterology Lyssa Stout CRNP [address] [facility] [place] [address] [phone] 09/09/2021 Imaging Radiology Health Maintenance Due Date [...] this encounter Implants Implanted Type Area [employer] Librarian Device Identifier Shelf Expiration Date Model / Serial / Lot [employer] Sure Clip Implanted:Qty: 2 on 06/03/2020 by Janis Hatch DO at OR [facility] Clip N/A: Colon 04/21/2022 [facility]-F-[id number] 35-C-[id number] / / [id number] documented as of this encounter Visit Diagnoses Diagnosis Cirrhosis of liver without ascites, unspecified hepatic cirrhosis type (HCC)- Primary 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
--- OUTSIDE RECORDS SUMMARY | 2023-05-10 20:34 | External Medical Summary | Summary of Care ---
Author Name Unknown Organization [place] [address] Care Team Providers Care Health Record Technician Name Role Phone Vanita Dunn MD Primary Care Provid er Reason for Visit * Reason Comments Hospital Follow-Up Encounter Details Date Type Department Care Team Description 05/11/2021 Office Visit Hepatology, [place] [address] [place] [address] Sergei Sanchez, [address], [place] [id number] Cirrhosis of liver without ascites, unspecified hepatic cirrhosis type (HCC)*; HTN, goal below 140/90; Severe obesity (BMI >= 40) (HCC); Type 2 diabetes mellitus with hemoglobin A1c goal of less than 7.0% (HCC); Dyslipidemia, goal LDL below 70 Allergies Active Allergy Reactions Severity Noted Date [...] 120 Vial 11 10/02/2019 Active nystatin (NYSTOP) 889685 UNIT/GM powder Apply topically to affected area [...] 60 Each 3 07/27/2020 Active Dexcom G6 Hydrodynamics Professor Device Use as directed. To test [...] Strip 3 10/29/2020 Active OneTouch Delica Plus [id number] TESTING once daily 100 Each 3 10/29/2020 [...] less than 7.0% ([facility]) Use to inject insulin four times daily; E11.42 400 Each 3 12/05/2020 Active Fluticasone Propionate 50 MCG/ACT Nasal Suspension (Flonase)Indicatio ns:Sinus congestion USE 2 SPRAYS IN EACH NOSTRIL ONCE DAILY as directed 16 g 5 12/23/2020 Active Additional Information Patient taking differently: 2 Burson Nasal DAILY PRN, Congestion, Informant: Pharmacy, Reported [...] 05/11/2021 Trulicity 4.5 MG/0.5ML Subcutaneous Solution Pen-injector (Dulaglutide)Indic [...] mouth daily. 30 Tab 5 05/11/2021 Active Nadolol 20 MG Oral Tablet (CORGARD)Indicatio ns:HTN, goal below 140/90 One daily 90 Tab 1 09/19/2020 1 Discontinue d(Refill) Spironolactone 25 MG Oral Tablet (Aldactone) Take 0.5 Tabs by mouth daily. 30 Tab 5 03/03/2021 1 Discontinue d(Refill) Sulfamethoxazole-T rimethoprim 800-160 MG Oral Tablet (Bactrim DS) Take 1 Tab by mouth 2 times a day. 20 Tab 0 04/27/2021 1 Discontinue d(Medicatio n List Clean Up) documented as of this [...] pain 01/24/2012 01/17/2017 Genetic Sleep Disorder Research Other*[id number] 05/13/2011 04/07/2016 Obstructive sleep apnea 01/18/2011 12/27/19 [...] Sign Reading Time Taken Comments Blood Pressure 132/74 05/11/2021 2:55 PM EDT Pulse 72 05/11/2021 2:55 PM EDT Temperature - - Respiratory Rate - - Oxygen Saturation 95% 05/11/2021 2:55 PM EDT Inhaled Oxygen Concentration - - [...] this encounter Patient Instructions * Patient Instructions* Sergei Sanchez DO - 05/11/2021 3:37 PM EDT Please continue to limit your salt intake to <1.5 grams per day Please make sure to increase your protein intake Please increase your spironolactone to 25 mg daily Please continue your lasix 40 mg daily. Please increase your nadolol to 40 mg daily Please repeat your blood work after you have been on these new medications for 1 WEEK. 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 She was recently admitted to [facility] 03/07/21-03/11/21 with chest/epigastric pain. She was noted to have AoC anemia with Hgbaround 7's, baseline 11 without signs of active bleeding. She underwent EGD 03/10/21 showing PHG anderythema within the gastric antrum. She is here today for follow up care of her NG cirrhosis. Overall doing well. No acute issues today. Eating fine. No abd pain, N/V. Currently taking lasix 40mg daily and spironolactone 12.5 mg daily. does endorse leg swelling but unchanged over the last few months. Denies any paracentesis in the past. Denies any confusion episodes. Review of systems: ROS was negative except as mentioned above in HPI. Past Medical History Past Medical History: Diagnosis Date Cerebral palsy [...] ICD-10 update of inactive term Past Surgical History Past Surgical History: Procedure Laterality Date BONE DEBRIDEMENT, FIRST 20 CM2 Right 04/16/2020 DEBRIDEMENT SKIN SUBCUTANEOUS TISSUE MUSCLE AND BONE performed by Josh Vazquez MD at [place] [facility] DELIVERY 04/20/1982 COLONOSCOPY 04/21/2009 repeat in 10 years COLONOSCOPY, DIAGNOSTIC (RECTUM) 10/04/2016 normal bx, repeat 10 yrs/[facility] COLONOSCOPY, DIAGNOSTIC (RECTUM) N/A 06/03/2020 internal hemorrhoids/biopsies show adenomatous polyps/recall 5 years/COLONOSCOPY FLEXIBLE PROXIMAL DIAGNOSTIC performed by Janis Hatch DO at OR [facility] COLONOSCOPY, DIAGNOSTIC (RECTUM) 03/17/2020 poor prep / [facility] DENTAL SURGERY PROCEDURE NEC wisdom teeth x 4 DILATION AND CURETTAGE (D&C) EGD, FLEXIBLE, DIAGNOSTIC 10/04/2016 gastritis/[facility] EGD, FLEXIBLE, DIAGNOSTIC 01/11/2018 eso varices, retained food, repeat 1 yr/[facility] EGD, FLEXIBLE, DIAGNOSTIC N/A 06/03/2020 severe erosive esophagitis/non-bleeding grade II esophageal varices/gastritis/biopsies show inflammatory changes/repeat 3-4 months/ESOPHAGOGASTRODUODENOSCOPY (EGD), FLEXIBLE, TRANSORAL, DIAGNOSTIC per formed by Janis Hatch DO at OR [facility] EGD, FLEXIBLE, DIAGNOSTIC 11/27/2019 eso varices, portal hypertensive gastropathy, gastritis / [facility] EGD, FLEXIBLE, DIAGNOSTIC N/A 08/05/2020 large amount of food in stomach/repeat 1.5 years/ESOPHAGOGASTRODUODENOSCOPY (EGD), FLEXIBLE, TRANSORAL, DIAGNOSTIC performed by Janis Hatch DO at OR [facility] EGD, FLEXIBLE, DIAGNOSTIC N/A 03/10/2021 ESOPHAGOGASTRODUODENOSCOPY (EGD), FLEXIBLE, TRANSORAL, DIAGNOSTIC performed by Kris Blankenship MD at ENDOSCOPY [facility] IR VENOUS ACCESS MEDIPORT 10/05/2020 PELVIS/HIP JOINT SURGERY NEC teenager aid in walking REPAIR/GRAFT ACHILLES TENDON age 40 aid in walking Social History Social History Socioeconomic History Marital status: Spouse [...] file Gets together: Not on file Attends restoration service: Not on file Active member of [...] file Social History Narrative 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49 education: 12 service: no hobbies/interests: reading transfusions: no exercise: no diet: no mandaeism/jew: Raised church marital status: 2nd time 11/15 children: 1 gc: 0/15 for 2nd ggc: 0 pets: Dog, lots of cats exposure to violence/threats/abuse: no things to improve: no Vaping/E-Cigarette Use Vaping/E-Cigarette Use Never User Vaping/E-Cigarette Substances Nicotine No Other No Flavoring No THC No Cannabidiol (CBD) No Vaping/E-Cigarette Devices Disposable No Pre-filled or Refillable Cartridge No Refillable Tank No Pre-filled Pod No Family history Family History Problem Relation Age of Onset Heart Disorder Father of PR at age 61 Diabetes Father Heart Disorder Mother of PR age 72 Cancer None Arthritis None Stroke None Heart Disorder Sister Mi at age 46 Hypertension Sister Mental Disorder None Medications Current Outpatient Medications Medication Sig Dispense Refill Nadolol 40 MG Oral Tablet (Corgard) Take [...] DAILY 60 Tab 5 OneTouch Delica Plus [id number] TESTING once daily 100 Each 3 OneTouch Verio In Vitro Strip (Glucose Blood) TESTING once daily 100 Strip 3 Lidocaine-Prilocaine 2.5-2.5 % External Cream (Emla) Apply topically to affected area as neededfor Other (for port). APPLY TO SKIN OVER MEDIPORT & COVER 1HR PRIOR TO ACCESSING. 30 g 3 Dexcom G6 Hydrodynamics Professor Device Use as directed. To test [...] With spacer 16 g 1 nystatin (NYSTOP) 478630 UNIT/GM powder Apply topically to affected area 3 times a day. 60 g 1 albuterol sulfate (PROVENTIL) (2.5 MG/3ML) 0.083% nebulizer solution Inhale 1 Vial via nebulizer every 6 hours as needed for Wheezing. 120 Vial 11 vitamin c (ASCORBIC ACID) 500 MG Tablet Take 500 mg by mouth daily. CENTRUM SILVER PO TABS Take 1 Tab by mouth daily. 1 Tab 0 No herbal supplements Review of patient's allergies indicates: Allergen Reactions Adhesive Tape Itching Pcn [Penicillins] Rash Perflutren Protein A Microsph Definity-lower back pain Physical Exam: Vitals: BP 132/74 | Pulse 72 | SpO2 95% General: Patient is awake, alert, oriented x 3, and in no acute distress. Morbidly obese. Electric wheelchair. Head and face: normocephalic and atraumatic Eyes: PERRLA; no scleral icterus; normal lids Heart: RRR, S1 and S2 audible. Respiratory: CTA. No wheezes Abdomen: Soft, non-tender. Bowel sounds x 4. Extremities: No cyanosis, or clubbing. +2 pitting edema up to BL shins. No significant edema aroundthe lateral hips Skin: Warm, dry, intact. Neuro: Alert and oriented x 3. Speech appropriate, moves all extremities. Labs: Reviewed as below: MELD-Na score: 10 at 04/16/2021 5:54 PM Calculated from: Serum Creatinine: 0.6 mg/dL (Rounded to 1 mg/dL) at 04/16/2021 5:54 PM Serum Sodium: 141 mmol/L (Rounded to 137 mmol/L) at 04/16/2021 5:54 PM Total Bilirubin: 1.1 mg/dL at 04/16/2021 5:54 PM INR(ratio): 1.31 at 04/16/2021 5:54 PM Age: 65 years 11 months Imaging Studies: Reviewed as below: CT A/P 04/16/21 IMPRESSION 1. Ill-defined fat stranding surrounding the inferior mesenteric artery and vein may suggest vasculitis, that is slightly more prominent compared to CT dated 03/31/2021. Correlate with inflammatory markers. 2. Indeterminate hypodensity in the right adnexa. Consider nonurgent evaluation with transvaginal ultrasound. 3. Cirrhotic liver with splenomegaly and varices, sequela of portal hypertension, as above. Endoscopic Hx: EGD 03/10/21 GIB Impression: - Z-line regular, 36 cm from the incisors. - Gastroesophageal flap valve classified as Hill Grade IV (no fold, wide open lumen, hiatal hernia present). - Grade I esophageal varices. - Portal hypertensive gastropathy. - Erythematous mucosa in the antrum. - Normal examined duodenum. - There is no endoscopic evidence of bleeding, ulceration or varices in the entire exam. EGD 07/2020 f/u esophagitis Impression: - Normal esophagus. - A large amount of food (residue) in the stomach. - No specimens collected. EGD 05/2020 epigastric pain Impression: - Severe erosive esophagitis. Biopsied. Cells for cytology obtained. This could represent a candidalinfection or perhaps injury from impaction of a medication. - Non-bleeding grade II esophageal varices. - Gastritis. Biopsied. - Normal examined duodenum. Assessment and Plan: 65 year old female with hx ofNASH cirrhosis with portal HTN (G2EV on nadolol), THAD (CPAP), DM II,hypothyroidism, HFpEF, DLD who presents to [facility] hepat[facility] clinic for follow up. She was recently admitted to [facility] 03/07/21-03/11/21 with chest/epigastric pain. She was noted to have AoC anemia with Hgb around 7's, baseline 11 without signs of active bleeding. She underwent EGD 03/10/21 showing PHG and erythema within the gastric antrum. She is here today for follow up care of her NG cirrhosis. 66 year old female with compensated Child's class 6A Cirrhosis, MELD score of 10, secondary to NG. Overall doing well. No acute issues. Still has peripheral edema but no ascites or paracentesis. No HE. No GIB. Plan Basic Metabolic Panel Nadolol 40 MG Oral Tablet (Corgard) Spironolactone 25 MG Oral Tablet (Aldactone) Ascites and / or peripheral edema: will continue the current doses of diuretics: Furosemide 40 mg daily Spironolactone, increase from 12.5 mg to 25 mg daily. Variceal screening: EGD 02/2021 with G1EV and PHG. -continue nadolol 20 mg daily. HR today 72, Increase to 40 mg daily Hepatic Encephalopathy: No overt evidence of hepatic encephalopathy Hepatocelluar carcinoma screening: CT A/P 04/2021, no noted liver masses. Repeat RUQ U/S around 10/2021, ordered. Hep A IgG/IgM: unknown immunity. Last vaccine 03/2019 and 09/2019. check levels, administer vaccine in needed at next follow up appt. Hep BsAb: Not immune administer vaccine in needed at next follow up appt with hep A if not immune Nutritional support: High protein (60-80 gms daily), low fat, low carbohydrate diet and low salt diet (at most 2 grams aday). Avoid salt containing manufactured food such as canned/boxed foods. Advised to completely abstain from alcohol. Should also attend A.A. meetings and seek help from family members and friends. Lack of sobriety would be a contraindication for liver transplant evaluation referral. Encouraged smoking cessation and avoid substance abuse. Need to avoid liver toxins including herbal supplements. The patient should avoid excess tylenol and may take Acetaminophen 2 grams a week. Avoid NSAIDs. Exercise Encouraged aerobic and resistive exercises to remain physically active and maintain muscle mass/achieve weight loss Overall Plan: -Increase nadolol to 40 mg daily, HR 70's today -Continue lasix 40 mg daily. increase spironolactone to 25 mg daily. If needed, would recommend to increase spirolactone to 50 mg daily and closely monitor potassium levels as she is also on potassium supplements. Renal function normal. -Repeat BMP after she is on the increased diuretic therapy for 1 week, ordered -Repeat EGD in 1 year with her ongoing obesity -If her anemia persists 2/2 PHG, then may need to consider early TIPs intervention but currently not an ideal candidate. -RUQ U/S for HCC screening around oct 2021, to be ordered at next appt -Low salt, <2g, diet RTC in 3 months Pt was seen and disuccsed with Dr. Michel. Sergei Sanchez DO Hepatology, [address] [address] I have discussed the patient's management with the medical trainee and agree with the note. Please refer to the documented findings and plan of care. This patient's visit today consisted of an evaluation. I was present and confirmed the findings of the history and exam. Chip Michel MD documented in this encounter Plan of Treatment Upcoming Encounters Date Type Specialty Care Team Description 05/14/2021 Office Visit Podiatry Prakash Martino, [place] [address] [place] [address] 05/14/2021 Laboratory Laboratory [facility] [address] [place] [address] [phone] 05/21/2021 Immunization/Injection Hematology Oncolog y Nurse, Med [address] [place] [address] [phone] 06/02/2021 Office Visit [facility] [address] [place], [place] [id number] 06/03/2021 Telemedicine Palliative Medicine Esperanza Painter MD [address] [place], [place] [id number] 06/07/2021 Nutrition Services Gastroenterology Melissa Omalley, SAMANTHA [address] [place] [address] [phone] 07/06/2021 Office Visit Hematology Oncology Tono Sanchez MD [address] [place] [address] [phone] 07/22/2021 Office Visit Pulmonary AlmaReynaldo MD [address] [place] [facility] [place] [address] [phone] 07/27/2021 Office Visit Gastroenterology Lyssa Stout CRNP [address] [place] [address] [phone] 09/09/2021 Imaging Radiology Scheduled Orders Name Type Priority Associated Diagnoses Orde r Schedule BASIC METABOLIC PANEL Lab Routine Cirrhosis of liver without ascites, unspecified hepatic cirrhosis type (HCC) Expected: 05/25/2021 (Approximate), Expires: 05/11/2022 Health Maintenance Due Date Last Done Comments [...] of this encounter Implants Implanted Type Area Ramp Manager Device Identifier Shelf Expiration Date Model / Serial / Lot [employer] Sure Clip Implanted:Qty: 2 on 06/03/2020 by Janis Hatch DO at OR [facility] Clip N/A: Colon 04/21/2022 [facility]-F-[id number] 35-C-R / / [id number] documented as of this encounter Visit Diagnoses Diagnosis Cirrhosis of liver without ascites, unspecified hepatic cirrhosis type (HCC)- Primary HTN, goal below 140/90 Unspecified essential hypertension Severe obesity (BMI >= 40) (HCC) Morbid obesity Type 2 diabetes mellitus with hemoglobin A1c goal of less than 7.0% (HCC) Dyslipidemia, goal LDL below 70 Other and unspecified hyperlipidemia documented in this encounter Advance Directives Documents on File Type Date Recorded Patient Manager Spring 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 Agent [facility] p Communication Syed Fariasel Spouse Emergency Contact
--- OUTSIDE RECORDS SUMMARY | 2023-05-10 20:35 | External Medical Summary | Summary of Care ---
Author Name Unknown Organization [place] [address] Care Team Providers Care Oracle Ascp Consultant Name Role Phone Vanita Dunn MD Primary Care Provid er Reason for Visit * Reason Comments Follow Up Diabetic foot care Encounter Details Date Type Department Care Team Description 04/27/2021 Office Visit Podiatry [address] [place] [address] Prakash Martino, SIRENA [address] [place] [address] Paronychia of toe of right foot due to ingrown toenail*; Type II diabetes mellitus with peripheral circulatory disorder (HCC) Allergies Active Allergy Reactions Severity Noted Date Comments Adhesive Tape Itching 04/29/2020 Penicillins Rash 02/12/2008 Perflutren Protein A Microsph 2019 Definity-lower back pain documented as of this encounter (statuses as of 04/28/2021) Medications Medication Sig Dispensed Refills Start Date [...] 120 Vial 11 10/02/2019 Active nystatin (NYSTOP) 099737 UNIT/GM powder Apply topically to affected area [...] Each 3 07/27/2020 Active Dexcom G6 Distribution Tech Device Use as directed. To test [...] Information Patient taking differently: 20 mg Oral [id number], (No instructions reported), Informant: Pharmacy, Reported on [...] Strip 3 10/29/2020 Active OneTouch Delica Plus [id number] TESTING once daily 100 Each 3 10/29/2020 [...] Active Additional Information Patient taking differently: 2 [place] Nasal DAILY PRN, Congestion, Informant: Pharmacy, Reported [...] to 30 days. 60 Tab 0 03/29/2021 Active Potassium Chloride Selena ER 10 [...] at bedtime 30 mL 3 04/07/2021 Active Docusate Sodium 100 MG Oral Capsule (Colace) Take 1 Cap by mouth 2 times a day. 68 Cap 0 04/16/2021 Active Trulicity 4.5 MG/0.5ML Subcutaneous Solution Pen-injector (Dulaglutide)Indic ations:Type 2 diabetes mellitus with hemoglobin A1c goal of less than 7.0% (HCC) Inject one pen (4.5 mg) under the skin once weekly 6 mL 3 04/23/2021 Active Sulfamethoxazole-T rimethoprim 800-160 MG Oral Tablet (Bactrim DS) Take 1 Tab by mouth 2 times a day. 20 Tab 0 04/27/2021 Active Sulfamethoxazole-T rimethoprim 800-160 MG Oral Tablet (Bactrim DS)Indications:Com plicated UTI (urinary tract infection) Take 1 Tab by mouth 2 times a day. 6 Tab 0 04/26/2021 Discontinue d(Refill) documented as of this encounter (statuses as of 04/28/2021) Active Problems Problem Noted Date Food insecurity [...] 04/08/2019 Fibromyalgia 04/08/2019 Achilles tendinitis, right leg 07/29/201 9 Ambulatory dysfunction 04/04/2019 DM type 2 [...] as of this encounter (statuses as of 04/28/2021) Resolved Problems Problem Noted Date Resolved Date [...] pain 01/24/2012 01/17/2017 Genetic Sleep Disorder Research Other*[id number] 05/13/2011 04/07/2016 Obstructive sleep apnea 01/18/2011 12/27/19 [...] as of this encounter (statuses as of 04/28/2021) Immunizations Name Administration Dates Next Due COVID-19 [...] this encounter Patient Instructions * Patient Instructions* Prakash Martino DPM - 04/27/2021 3:34 PM EDT PATIENT INSTRUCTIONS 1. Keep current bandage on until tomorrow morning 2. Soak toe(s) in warm salt water or Epsom salt (1 Tablespoon of salt/quart of warm water) twice a day 3. Apply Neosporin ointment and cover with a bandaid 4. Take Advil or Tylenol for pain 5. Call the office if toe becomes red or painful documented in this encounter Progress Notes * Prakash Martino DPM - 04/27/2021 3:35 PM EDT Subjective: Patient presents in office today for follow up of infected ingrown right great toenail. Patient states that it is still painful and red. HISTORY Past Medical History: Diagnosis Date Cerebral palsy [...] performed by Josh Vazquez MD at OR [facility] DELIVERY 04/20/1982 COLONOSCOPY 04/21/2009 repeat in 10 years COLONOSCOPY, DIAGNOSTIC (RECTUM) 10/04/2016 normal bx, repeat 10 yrs/[facility] COLONOSCOPY, DIAGNOSTIC (RECTUM) N/A 06/03/2020 internal hemorrhoids/biopsies show adenomatous polyps/recall 5 years/COLONOSCOPY FLEXIBLE PROXIMAL DIAGNOSTIC performed by Janis Hatch DO at OR [facility] COLONOSCOPY, DIAGNOSTIC (RECTUM) 03/17/2020 poor [...] formed by Janis Hatch DO at OR [facility] EGD, FLEXIBLE, DIAGNOSTIC 11/27/2019 eso varices, portal hypertensive gastropathy, gastritis / [facility] EGD, FLEXIBLE, DIAGNOSTIC N/A 08/05/2020 large amount of food in stomach/repeat 1.5 years/ESOPHAGOGASTRODUODENOSCOPY (EGD), FLEXIBLE, TRANSORAL, DIAGNOSTIC performed by Janis Hatch DO at OR [facility] EGD, FLEXIBLE, DIAGNOSTIC N/A 03/10/2021 ESOPHAGOGASTRODUODENOSCOPY (EGD), FLEXIBLE, TRANSORAL, DIAGNOSTIC performed by Kris Blankenship MD at ENDOSCOPY [facility] IR VENOUS ACCESS MEDIPORT 10/05/2020 PELVIS/HIP JOINT SURGERY NEC teenager aid in walking REPAIR/GRAFT ACHILLES TENDON age 40 aid in walking Family History Problem Relation Age of Onset Heart Disorder Father of [place] at age 61 Diabetes Father Heart Disorder Mother of [place] age 72 Cancer None Arthritis None Stroke None Heart Disorder Sister [place] at age 46 Hypertension Sister Mental Disorder None Social History Socioeconomic History Marital status: Spouse [...] file Gets together: Not on file Attends yarsanism service: Not on file Active member of [...] file Social History Narrative 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49 education: 12 service: no hobbies/interests: reading transfusions: no exercise: no diet: no judaism/congregation: Raised taoism marital status: 2nd time 11/15 children: 1 gc: 0/15 for 2nd ggc: 0 pets: Dog, lots of cats exposure to violence/threats/abuse: no things to improve: no Vaping/E-Cigarette Use Vaping/E-Cigarette Use Never User Vaping/E-Cigarette Substances Nicotine No Other No Flavoring No THC No Cannabidiol (CBD) No Vaping/E-Cigarette Devices Disposable No Pre-filled or Refillable Cartridge No Refillable Tank No Pre-filled Pod No Current Outpatient Medications Medication Sig Dispense Refill Sulfamethoxazole-Trimethoprim 800-160 MG Oral Tablet (Bactrim DS) Take 1 Tab by mouth 2 times aday. 20 Tab 0 Trulicity 4.5 MG/0.5ML Subcutaneous [...] bowel movement every day. 2700 mL 2 traMADol HCl 50 MG Oral Tablet (Ultram) Take 1 Tab by mouth every 12 hours as needed for Pain, Moderate for up to 30 days. 60 Tab 0 Aspirin 81 MG Oral Tablet Chewable Take [...] DAILY 60 Tab 5 OneTouch Delica Plus [id number] TESTING once daily 100 Each 3 OneTouch [...] every morning.) 90 Tab 1 Dexcom G6 Distribution Tech Device Use as directed. To test [...] With spacer 16 g 1 nystatin (NYSTOP) 490731 UNIT/GM powder Apply topically to affected area 3 times a day. 60 g 1 albuterol sulfate (PROVENTIL) (2.5 MG/3ML) 0.083% nebulizer solution Inhale 1 Vial via nebulizer every 6 hours as needed for Wheezing. 120 Vial 11 vitamin c (ASCORBIC ACID) 500 MG Tablet Take 500 mg by mouth daily. CENTRUM SILVER PO TABS Take 1 Tab by mouth daily. 1 Tab 0 ROS EXAM: CONSTITUTIONAL: No change in weight, No weakness, No fatigue and No fevers, sweats, or chills EXTREMITIES: No pain, redness or swelling on the joints SKIN/INTEGUMENTARY:severe edema, No rash and No itching NEUROLOGIC: Patient wheelchair confined, No headaches, No seizures and No weakness Objective: Vascular examination: DP 1/4 right 0/4 left PT 0/4 bilateral SPVFT 3sec no digital hair Thin atrophic skin Dermatological examination: paronychial abscess lateral border right great toenail with erythema proximal nail fold Orthopedic examination: unremarkable Neurological examination: Epicritic sensation intact Assessment: The primary encounter diagnosis was Paronychia of toe of right foot due to ingrown toenail. A diagnosis of Type II diabetes mellitus with peripheral circulatory disorder (HCC) was also pertinent to this visit. Plan: 1. I&D of paronychial abscess lateral border right great toe. Bacitracin/DSD 2. Rx for Bactrim DS 3. Patient given soaking instructions documented in this encounter Nursing Notes * Miley Vasquez LPN - 04/28/2021 7:15 AM EDT Patient states that home health is caring for her foot and requested that the dressing not be removed for appointment. * Miley Vasquez LPN - 04/27/2021 3:23 PM EDT Diabetic foot care documented in this encounter Plan of Treatment Upcoming Encounters Date Type Specialty Care Team Description 04/29/2021 Office Visit Palliative Medicine Esperanza Painter MD [address] [place] [address] 04/29/2021 Appointment Radiology 05/11/2021 Office Visit Gastroenterology Sergei Sanchez P, DO [address] [place] [address] [phone] 05/14/2021 Office Visit Podiatry Prakash Martino, DPM [address] [place], [place] [address] 05/14/2021 Laboratory Laboratory Johanna Bojorquez [address] [place] [address] [phone] 05/21/2021 Immunization/Injection Hematology Oncolog y Nurse, Med [address] [place] [address] [phone] 06/02/2021 Office Visit Pharmacy [facility] [address] [place] [address] [phone] 06/07/2021 Nutrition Services Gastroenterology Melissa Omalley RDN [address] [address] [phone] 07/06/2021 Office Visit Hematology Oncology Tono Sanchez MD [address] [place] [address] [phone] 07/22/2021 Office Visit Pulmonary Reynaldo Marquez MD [address] [place] [address] [phone] 07/27/2021 Office Visit Gastroenterology Lyssa Stout CRNP [address] [facility] [place] [address] [phone] 09/09/2021 Imaging Radiology Scheduled Orders Name Type Priority Associated Diagnoses Orde r Schedule DRAIN SKIN ABSCESS, COMPLIC/MULT Procedures Routine Paronychia of toe of right foot due to ingrown toenail Type II diabetes mellitus with peripheral circulatory disorder (HCC) Ordered: 04/27/2021 Health Maintenance Due Date Last Done Comments [...] of this encounter Implants Implanted Type Area Block Layer Device Identifier Shelf Expiration Date Model / Serial / Lot Microtech Sure Clip Implanted:Qty: 2 on 06/03/2020 by Janis Hatch DO at OR H Clip N/A: Colon 04/21/2022 [facility]-F-26-2 35-C-R / / [id number] documented as of this encounter Visit Diagnoses Diagnosis Paronychia of toe of right foot due to ingrown toenail- Primary Type II diabetes mellitus with peripheral circulatory disorder (HCC) Type II or unspecified type diabetes mellitus with peripheral circulatory disorders, not stated as uncontrolled documented in this encounter Advance Directives Documents on File Type Date Recorded 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 Communication Syed Bustos Spouse Emergency Contact
--- OUTSIDE RECORDS SUMMARY | 2023-05-10 20:35 | External Medical Summary | Summary of Care ---
Author Name Unknown Organization [place] [address] Care Team Providers Care Banjo Repairer Name Role Phone Vanita Dunn MD Primary Care Provid er Reason for Visit * Reason Onset Date Comments Appointment 04/26/2021 Encounter Details Date Type Department Care Team Description 04/26/2021 Telephone [facility] [address] [place] [address] Vanita Dunn MD [address] [place] [address] Appointment Allergies Active Allergy Reactions [...] 120 Vial 11 10/02/2019 Active nystatin (NYSTOP) 144294 UNIT/GM powder Apply topically to affected area [...] 60 Each 3 07/27/2020 Active Dexcom G6 Personal Banking Officer Device Use as directed. To test [...] Information Patient taking differently: 20 mg Oral [id number], (No instructions reported), Informant: Pharmacy, Reported on [...] Strip 3 10/29/2020 Active OneTouch Delica Plus [id number] TESTING once daily 100 Each 3 10/29/2020 [...] Active Additional Information Patient taking differently: 2 [place] Nasal DAILY PRN, Congestion, Informant: Pharmacy, Reported [...] than 7.0% ([facility]) inject 28 units under skin at [...] breath) 01/30/2021 Uncontrolled type 2 diabetes mellitus [facility] hyperglycemia 07/15/2020 Esophagitis 07/06/2020 Esophageal varices 07/06/2020 [...] pain 01/24/2012 01/17/2017 Genetic Sleep Disorder Research Other*[id number] 05/13/2011 04/07/2016 Obstructive sleep apnea 01/18/2011 12/27/19 [...] encounter Miscellaneous Notes * Telephone Encounter - Ai Villaseñor OSA - 04/28/2021 12:09 PM EDT Scheduled 04/29 * Telephone Encounter - Ramez Ledbetter OSA - 04/27/2021 11:08 AM EDT VM not set up on cell, will try again at later time. * Telephone Encounter - Lyssa Stout CRNP - 04/26/2021 3:45 PM EDT Schedulers - pls assist w rescheudling CT ZAK Schreiber * Telephone Encounter - Vanita Dunn MD - 04/26/2021 3:02 PM EDT FYI - pt will be rescheduling her liver CT that was originally scheduled in [place] for 04/29 - as it conflicts with her palliative appt in [place] - as you know, she will need it rescheduled in [place] since their dept is the only one with a candace lift (according to patient's recollection). Please assist with rescheduling. AG documented in this encounter Plan of Treatment Upcoming Encounters Date Type Specialty Care Team Description 04/29/2021 Office Visit Palliative Medicine Esperanza Painter MD [address] [place] [address] 04/29/2021 Appointment Radiology 05/11/2021 Office Visit Gastroenterology Sergei Sanchez P, DO [address] [place] [address] 05/14/2021 Office Visit Podiatry Prakash Martino, SIRENA [address] [place] [address] 05/14/2021 Laboratory Laboratory Johanna Bojorquez [facility] [address] [place] [address] [phone] 05/21/2021 Immunization/Injection Hematology Oncolog y Nurse, Med 4 [address] [facility] [place] [address] [phone] 06/02/2021 Office Visit Pharmacy [facility] [address] [place], [place] [address] 06/07/2021 Nutrition Services Gastroenterology Melissa Omalley, SAMANTHA [address] [place] [address] [phone] 07/06/2021 Office Visit Hematology Oncology Tono Sanchez MD [address] [place] [address] [phone] 07/22/2021 Office Visit Pulmonary Reynaldo Marquez MD [address] [place] [address] [phone] 07/27/2021 Office Visit Gastroenterology Lyssa Stout CRNP [address] [facility] [place] [address] [phone] 09/09/2021 Imaging Radiology Health Maintenance Due Date [...] this encounter Implants Implanted Type Area Environmental Tech Device Identifier Shelf Expiration Date Model / Serial / Lot Microtech Sure Clip Implanted:Qty: 2 on 06/03/2020 by Janis Hatch DO at OR [facility] Clip N/A: Colon 04/21/2022 [facility]-F-26-2 35-C-R / / [id number] documented as of this encounter Advance Directives Documents on File Type Date Recorded Patient Equipment Service Technician Expl 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 File Name Relationship [facility] Communication Syed Bustos Spouse Emergency Contact
--- OUTSIDE RECORDS SUMMARY | 2023-05-10 20:36 | External Medical Summary | Summary of Care ---
Author Name Unknown Organization [facility] [place] [address] Care Team Providers Care Hand Cutter Apprentice Name Role Phone Vanita Dunn MD Primary Care Provid er Reason for Visit * Reason Onset Date Comments Appointment 04/26/2021 Encounter Details Date Type Department Care Team Description 04/26/2021 Telephone [facility] [address] [place] [address] Vanita Dunn MD [address] [place] [address] Appointment Allergies Active Allergy Reactions Severity Noted Date Comments Adhesive Tape Itching 04/29/2020 Penicillins Rash 02/12/2008 Perflutren Protein A Microsph 2019 Definity-lower back pain documented as of this encounter (statuses as of 04/27/2021) Medications Medication Sig Dispensed Refills Start Date [...] 120 Vial 11 10/02/2019 Active nystatin (NYSTOP) 701053 UNIT/GM powder Apply topically to affected area [...] 3 07/27/2020 Active Dexcom G6 Director Of Labor And Delivery Device Use as directed. 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 APPLY TO SKIN OVER MEDIPORT & COVER 1HR PRIOR TO ACCESSING. 30 g 3 10/09/2020 Active OneTouch Verio In Vitro Strip (Glucose Blood) TESTING once daily 100 Strip 3 10/29/2020 Active OneTouch Delica Plus Omcvbq22M TESTING once daily 100 Each 3 10/29/2020 [...] less than 7.0% ([facility]) Use to inject insulin four times daily; E11.42 400 Each 3 12/05/2020 Active Fluticasone Propionate 50 MCG/ACT Nasal Suspension (Flonase)Indication s:Sinus congestion USE 2 SPRAYS IN EACH NOSTRIL ONCE DAILY as directed 16 g 5 12/23/2020 Active Additional Information Patient taking differently: 2 [place] Nasal DAILY PRN, Congestion, Informant: Pharmacy, Reported [...] 50 MG Oral Tablet (Ultram)Indications :Abdominal pain, left lower quadrant Take 1 Tab by mouth every 12 hours as needed for Pain, Moderate for up to 30 days. 60 Tab 0 03/29/2021 04/28/2021 Active Potassium Chloride Selena ER 10 MEQ [...] than 7.0% ([facility]) inject 28 units under skin at [...] once weekly 6 mL 3 04/23/2021 Active Sulfamethoxazole-Tr imethoprim 800-160 MG Oral Tablet (Bactrim DS)Indications:Comp licated UTI (urinary tract infection) Take 1 Tab by mouth 2 times a day. 6 Tab 0 04/26/2021 Active documented as of this encounter (statuses as of 04/27/2021) Active Problems Problem Noted Date Food insecurity [...] as of this encounter (statuses as of 04/27/2021) Resolved Problems Problem Noted Date Resolved Date [...] pain 01/24/2012 01/17/2017 Genetic Sleep Disorder Research Other*[id number] 05/13/2011 04/07/2016 Obstructive sleep apnea 01/18/2011 12/27/19 [...] as of this encounter (statuses as of 04/27/2021) Immunizations Name Administration Dates Next Due COVID-19 [...] encounter Miscellaneous Notes * Telephone Encounter - Ramez Ledbetter OSA - 04/27/2021 11:08 AM EDT VM not set up on cell, will try again at later time. * Telephone Encounter - Lysas Stout CRNP - 04/26/2021 3:45 PM EDT Schedulers - pls assist w rescheudling CT ZAK Schreiber * Telephone Encounter - Vanita Dunn MD - 04/26/2021 3:02 PM EDT [place] - pt will be rescheduling her liver CT that was originally scheduled in [place] for 04/29 - as it conflicts with her palliative appt in [place] - as you know, she will need it rescheduled in [place] since their dept is the only one with a candace lift (according to patient's recollection). Please assist with rescheduling. AG documented in this encounter Plan of Treatment Upcoming Encounters Date Type Specialty Care Team Description 04/27/2021 Office Visit Podiatry Prakash Martino DPM [address] [place] [address] 04/29/2021 Office Visit Palliative Medicine Esperanza Painter MD [address] [place] [address] [phone] 04/29/2021 Appointment Radiology 05/11/2021 Office Visit Gastroenterology Sergei Sanchez P, DO [address] [place] [address] [phone] 05/14/2021 Laboratory Laboratory [place], Lab Scenery [address] [facility] [address] [phone] 05/21/2021 Immunization/Injection Hematology Oncolog y Nurse, Med 4 [address] [facility] [place] [address] [phone] 06/02/2021 Office Visit Pharmacy [address] [address] [phone] 06/07/2021 Nutrition Services Gastroenterology Melissa Omalley RDN [address] [place] [address] [phone] 07/06/2021 Office Visit Hematology Oncology Tono Sanchez MD [address] [place] [address] [phone] 07/22/2021 Office Visit Pulmonary Reynaldo Marquez MD [address] [place] [address] [phone] 07/27/2021 Office Visit Gastroenterology Lyssa Stout CRNP [address] [place] [address] [phone] 09/09/2021 Imaging Radiology Health Maintenance Due Date Last Done Comments DIABETES-EYE EXAM 06/12/2019 06/12/2018, , 06/12/2018, Additional history exists Dexa Scan 2020 Zoster Vaccines (3 of 3) 06/23/2020 04/28/2020, 03/3 Influenza Vaccine (FLU shot) (#1) 2021 06/01/2020, [...] of this encounter Implants Implanted Type Area Play Writer Device Identifier Shelf Expiration Date Model / Serial / Lot Microtech Sure Clip Implanted:Qty: 2 on 06/03/2020 by Janis Hatch DO at OR [facility] Clip N/A: Colon 04/21/2022 [facility]-F-26-2 35-C-R / / [id number] documented as of this encounter Advance Directives Documents on File Type Date Recorded Patient Forging Roll Operator 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
--- OUTSIDE RECORDS SUMMARY | 2023-05-10 20:36 | External Medical Summary | Summary of Care ---
Author Name Unknown Organization [place] [address] Care Team Providers Care Sole Rounding Machine Operator Name Role Phone Vanita Dunn MD Primary Care Provid er Reason for Visit * Reason Comments Follow Up Diabetic foot care Encounter Details Date Type Department Care Team Description 04/27/2021 Office Visit Podiatry [address] [place] [address] Prakash Martino, SIRENA [address] [place] [address] Paronychia of toe of right [...] 120 Vial 11 10/02/2019 Active nystatin (NYSTOP) 176210 UNIT/GM powder Apply topically to affected area [...] 60 Each 3 07/27/2020 Active Dexcom G6 General Farm Hand Device Use as directed. To test [...] Information Patient taking differently: 20 mg Oral [id number], (No instructions reported), Informant: Pharmacy, Reported on [...] Strip 3 10/29/2020 Active OneTouch Delica Plus [id number] TESTING once daily 100 Each 3 10/29/2020 [...] Active Additional Information Patient taking differently: 2 [place] Nasal DAILY PRN, Congestion, Informant: Pharmacy, Reported [...] pain 01/24/2012 01/17/2017 Genetic Sleep Disorder Research Other*[id number] 05/13/2011 04/07/2016 Obstructive sleep apnea 01/18/2011 12/27/19 [...] performed by Josh Vazquez MD at [place] [facility] [place] 04/20/1982 COLONOSCOPY 04/21/2009 repeat in 10 years COLONOSCOPY, DIAGNOSTIC (RECTUM) 10/04/2016 normal bx, repeat 10 yrs/[facility] COLONOSCOPY, DIAGNOSTIC (RECTUM) N/A 06/03/2020 internal hemorrhoids/biopsies show adenomatous polyps/recall 5 years/COLONOSCOPY FLEXIBLE PROXIMAL DIAGNOSTIC performed by Janis Hatch DO at OR [facility] COLONOSCOPY, DIAGNOSTIC (RECTUM) 03/17/2020 poor prep / [facility] DENTAL SURGERY PROCEDURE NEC wisdom teeth x 4 DILATION AND CURETTAGE (D&C) EGD, FLEXIBLE, DIAGNOSTIC 10/04/2016 gastritis/[facility] EGD, FLEXIBLE, DIAGNOSTIC 01/11/2018 eso varices, retained food, repeat 1 yr/[facility] EGD, FLEXIBLE, DIAGNOSTIC N/A 06/03/2020 severe erosive esophagitis/non-bleeding grade II esophageal varices/gastritis/biopsies show inflammatory changes/repeat 3-4 months/ESOPHAGOGASTRODUODENOSCOPY (EGD), FLEXIBLE, TRANSORAL, DIAGNOSTIC per formed by Janis Hatch DO at OR [facility] EGD, FLEXIBLE, DIAGNOSTIC 11/27/2019 eso varices, portal hypertensive gastropathy, gastritis / [facility] EGD, FLEXIBLE, DIAGNOSTIC N/A 08/05/2020 large amount of food in stomach/repeat 1.5 years/ESOPHAGOGASTRODUODENOSCOPY (EGD), FLEXIBLE, TRANSORAL, DIAGNOSTIC performed by Janis Hatch DO at OR 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 To test [...] With spacer 16 g 1 nystatin (NYSTOP) 285409 UNIT/GM powder Apply topically to affected area [...] Nursing Notes * Miley Vasquez LPN - 04/27/2021 3:23 PM EDT Diabetic foot care documented in this encounter Plan of Treatment Upcoming Encounters Date Type Specialty Care Team Description 04/29/2021 Office Visit Palliative Medicine Esperanza Painter MD [address] [place] [address] 04/29/2021 Appointment Radiology 05/11/2021 Office Visit Gastroenterology Sergei Sanchez P, DO [address] [place] [address] 05/14/2021 Office Visit Podiatry Prakash Martino DPM [address] [place] [address] [phone] 05/14/2021 Laboratory Laboratory Johanna Bojorquez [facility] [address] [place] [address] [phone] 05/21/2021 Immunization/Injection Hematology Oncolog y Nurse, Med 4 [address] [place] [address] [phone] 06/02/2021 Office Visit Pharmacy [facility] [address] [place], [place] [id number] 06/07/2021 Nutrition Services Gastroenterology Melissa Omalley RDN [address] [facility] [address] [place] [address] [phone] 07/06/2021 Office Visit Hematology Oncology Tono Sanchez MD [address] [place] [address] [phone] 07/22/2021 Office Visit Pulmonary Reynaldo Marquez MD [address] [place] [facility] [place] [address] [phone] 07/27/2021 Office Visit Gastroenterology Lyssa Stout CRNP [address] [facility] [place] [address] [phone] 09/09/2021 Imaging Radiology Scheduled Orders Name Type [...] of this encounter Implants Implanted Type Area See Wheeler Device Identifier Shelf Expiration Date Model / Serial / Lot Microtech Sure Clip Implanted:Qty: 2 on 06/03/2020 by Janis Hatch DO at OR [facility] Clip N/A: Colon 04/21/2022 [facility]-F-26-2 35-C-R / / [id number] documented as of this encounter Visit Diagnoses Diagnosis Paronychia of toe of right foot due to ingrown toenail- Primary Type II diabetes mellitus with peripheral circulatory disorder (HCC) Type II or unspecified type diabetes mellitus with peripheral circulatory disorders, not stated as uncontrolled documented in this encounter Advance Directives Documents on File Type Date Recorded 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
--- OUTSIDE RECORDS SUMMARY | 2023-05-10 20:36 | External Medical Summary | Summary of Care ---
Author Name Unknown Organization [place] [address] Care Team Providers Care Broadcast Field Supervisor Name Role Phone Vanita Dunn MD Primary Care Provid er Reason for Visit * Reason Comments Emergency Department Follow-Up abdominal pain Encounter Details Date Type Department Care Team Description 04/26/2021 Office Visit [place] [address] [place] [address] Vanita Dunn MD [address] [place] [address] Complicated UTI (urinary tract infection)*; Abdominal pain, generalized; Chronic idiopathic constipation Allergies Active Allergy Reactions Severity Noted Date Comments Adhesive Tape Itching 04/29/2020 Penicillins Rash 02/12/2008 Perflutren Protein A Microsph 2019 Definity-lower back pain documented as of this encounter (statuses as of 04/26/2021) Medications Medication Sig Dispensed Refills Start Date [...] 120 Vial 11 10/02/2019 Active nystatin (NYSTOP) 607564 UNIT/GM powder Apply topically to affected area [...] Each 3 07/27/2020 Active Dexcom G6 Marketing Operations Specialist Device Use as directed. To test [...] Information Patient taking differently: 20 mg Oral [id number], (No instructions reported), Informant: Pharmacy, Reported on [...] Strip 3 10/29/2020 Active OneTouch Delica Plus Znzqow31E TESTING once daily 100 Each 3 10/29/2020 [...] NOSTRIL ONCE DAILY as directed 16 g 12/23/2020 Active Additional Information Patient taking differently: 2 [place] Nasal DAILY PRN, Congestion, Informant: Pharmacy, Reported [...] as of this encounter (statuses as of 04/26/2021) Active Problems Problem Noted Date Lactic acidosis 03/22/2021 Portal hypertensive gastropathy 03/16/20 [...] as of this encounter (statuses as of 04/26/2021) Resolved Problems Problem Noted Date Resolved Date [...] pain 01/24/2012 01/17/2017 Genetic Sleep Disorder Research Other*[id number] 05/13/2011 04/07/2016 Obstructive sleep apnea 01/18/2011 12/27/19 [...] as of this encounter (statuses as of 04/26/2021) Immunizations Name Administration Dates Next Due COVID-19 [...] Sign Reading Time Taken Comments Blood Pressure 122/64 04/26/2021 2:16 PM EDT Pulse 69 04/26/2021 2:16 PM EDT Temperature 36.6 C (97.9 F) 04/26/2021 2:16 PM ED T Respiratory Rate - - Oxygen Saturation 92% 04/26/2021 2:16 PM EDT Inhaled Oxygen Concentration - [...] Progress Notes * Vanita Dunn MD - 04/26/2021 2:39 PM EDT ASSESSMENT / PLAN: Complicated UTI (urinary tract infection) (Primary) - Sulfamethoxazole-Trimethoprim 800-160 MG Oral Tablet (Bactrim DS); Take 1 Tab by mouth 2 times a day. Abdominal pain, generalized Chronic idiopathic constipation Reviewed ER visit note, as below - treated for constipation. Urine Culture shows staph aureus MRSA,susceptibility to macrobid, bactrim, and tetracycline. Would opt for bactrim. Discussed upcoming visit to palliative medicine to clarify goals of care, and also to prepare her for upcoming visit withher siblings as well, where she plans to let them in on her poor prognosis. All questions answered. If needed, prefers contact by: Ok to leave message on phone: Total time: I spent a total of 30-39 minutes (exact time 30 mins) on the date of service in preparation, delivery, and documentation of the care provided to Shaina Bustos excluding any time spent in the performance of separately billed services. SUBJECTIVE: Shaina Bustos is a 65 year old female. Nursing Notes: Tamara Fabian LPN 04/26/21 1421 Signed Chief Complaint Patient presents with Emergency Department Follow-Up abdominal pain HPI: Here for ED follow up - Seen 04/16/21 "Patient given Tylenol for pain and Dulcolax for suspected constipation. Labs unremarkable comparedto the patient's baseline. CXR with bibasilar atelectasis. CT abd/pelvis with ill-defined fat stranding surrounding the inferior mesenteric artery and vein may suggest vasculitis as well as a hypodensity in the right adnexa. Contacted General surgery about the patient's CT results - states that it is a very nonspecific finding and her pain is likely secondary to constipation. In regards to the adnexal hypodensity, placed a referral for outpatient gynecology. Urinalysis with the yeast, bacteria,white blood cells, and esterase - sample was not a straight cath so concern for possible contamination. We will wait for culture results before treating with an antibiotic. Since there is yeast present her urine, will give a dose of Diflucan while in the emergency department. Patient reported improvement in her symptoms while in the emergency department. Suspect her symptoms are secondary to const ipation so will send her home with a prescription for Colace." Urine cx reviewed - from 04/16/21 Culture Growth >100,000 colonies/mL Staphylococcus aureus MRSA, This patient may require isolation.Abnormal Today: says every day is different - some days her pain is tolerable and then some days her pain isbad. She is reluctant to take her stool softeners and laxatives as described given her wheel chair status and wants to avoid encopresis in public. Her Brice is supportive, voices a reluctance to go to the ER though as he feels there is not much that can be done for her there. Patient also states that her siblings are visiting her this weekend and she is going to tell them about her diagnosis, particularly the poor prognosis with her liver and for them to prepare. She has a visit with palliative medicine in a few days as well, this will be her first visit. Current Outpatient Medications Medication Sig Dispense Refill Sulfamethoxazole-Trimethoprim 800-160 MG Oral Tablet (Bactrim DS) Take 1 Tab by mouth 2 times aday. 6 Tab 0 Trulicity 4.5 MG/0.5ML Subcutaneous Solution [...] DAILY 60 Tab 5 OneTouch Delica Plus [id number] TESTING once daily 100 Each 3 OneTouch [...] every morning.) 90 Tab 1 Dexcom G6 Marketing Operations Specialist Device Use as directed. To test [...] With spacer 16 g 1 nystatin (NYSTOP) 525238 UNIT/GM powder Apply topically to affected area [...] mouth daily. 1 Tab 0 OBJECTIVE: BP 122/64 | Pulse 69 | Temp 36.6 C (97.9 F) (Tympanic) | SpO2 92% Vitals reviewed and is normotensive afebrile and not tachycardic and not hypoxic General: No acute distress. Sitting upright in wheel chair. Neuro: Alert Pleasant & interactive. Psych: Normal affect. Fluent speech. Vanita Dunn MD [address] [address] There are no Patient Instructions on file for this visit. documented in this encounter Nursing Notes * Tamara Fabian LPN - 04/26/2021 2:18 PM EDT Chief Complaint Patient presents with Emergency Department Follow-Up abdominal pain documented in this encounter Plan of Treatment Upcoming Encounters Date Type Specialty Care Team Description 04/27/2021 Office Visit Podiatry Prakash Martino DPM [address] [place] [address] 04/29/2021 Telemedicine Palliative Medicine Esperanza Painter MD [address] [place] [address] 04/29/2021 Appointment Radiology 05/11/2021 Office Visit Gastroenterology Sergei Sanchez P, DO [address] [place] [address] [phone] 05/14/2021 Laboratory Laboratory Johanna Bojorquez [facility] [address] [place] [address] [phone] 05/21/2021 Immunization/Injection Hematology Oncolog y Nurse, Med 4 [address] [place] [address] [phone] 06/02/2021 Office Visit Pharmacy [facility] [address] [place], [place] [address] 06/07/2021 Nutrition Services Gastroenterology Melissa Omalley, [place] [address] [place] [address] [phone] 07/06/2021 Office Visit Hematology Oncology Tono Sanchez MD [address] [place] [address] [phone] 07/22/2021 Office Visit Pulmonary [facility]aldo [facility]quez [facility] [address] [facility] [id number] 07/27/2021 Office Visit [facility]ology [facility] [address] [facility] [address] [phone] 09/09/2021 Imaging Radiology Health Maintenance Due Date Last Done Comments DIABETES-EYE EXAM 06/12/2019 06/12/2018, , 06/12/2018, Additional history exists Dexa Scan 2020 Zoster Vaccines (3 of 3) 06/23/2020 04/28/2020, / Influenza Vaccine (FLU shot) (#1) 2021 06/01/2020, [...] of this encounter Implants Implanted Type Area Property Maintenance Technician Device Identifier Shelf Expiration Date Model / Serial / Lot Microtech Sure Clip Implanted:Qty: 2 on 06/03/2020 by Janis Hatch DO at OR [facility] Clip N/A: Colon 04/21/2022 [facility]-F-26-2 35-C-R / / [id number] documented as of this encounter Visit Diagnoses Diagnosis Complicated UTI (urinary tract infection)- Primary Urinary tract infection, site not specified Abdominal pain, generalized Chronic idiopathic constipation Unspecified constipation documented in this encounter Advance Directives Documents on File Type Date Recorded 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
--- OUTSIDE RECORDS SUMMARY | 2023-05-10 20:37 | External Medical Summary | Summary of Care ---
Author Name Unknown Organization [place] [address] Care Team Providers Care Geodetic Surveyor Name Role Phone Vanita Dunn MD Primary Care Provid er Encounter Details Date Type Department Care Team Description 04/23/2021 Orders Only Outcomes Research Department [address] [place] [address] Kike Moran CHRA MyCode Research Other*[id number] Allergies Active Allergy Reactions Severity Noted Date Comments Adhesive Tape Itching 04/29/2020 Penicillins Rash 02/12/2008 Perflutren Protein A Microsph 2019 Definity-lower back pain documented as of this encounter (statuses as of 04/23/2021) Medications Medication Sig Dispensed Refills Start Date [...] 120 Vial 11 10/02/2019 Active nystatin (NYSTOP) 415760 UNIT/GM powder Apply topically to affected area [...] 60 Each 3 07/27/2020 Active Dexcom G6 Riveting Machine Operator Tape Control Device Use as directed. To test blood [...] Information Patient taking differently: 20 mg Oral [id number], (No instructions reported), Informant: Pharmacy, Reported on [...] Strip 3 10/29/2020 Active OneTouch Delica Plus [id number] TESTING once daily 100 Each 3 10/29/2020 [...] than 7.0% ([facility]) Use to inject insulin four times daily; E11.42 400 Each 3 12/05/2020 Active Fluticasone Propionate 50 MCG/ACT Nasal Suspension (Flonase)Indication s:Sinus congestion USE 2 SPRAYS IN EACH NOSTRIL ONCE DAILY as directed 16 g 5 12/23/2020 Active Additional Information Patient taking differently: 2 [place] Nasal DAILY PRN, Congestion, Informant: Pharmacy, Reported [...] 7.0% ([facility]) inject 28 units under skin at [...] once weekly 6 mL 3 04/23/2021 Active documented as of this encounter (statuses as of 04/23/2021) Active Problems Problem Noted Date Lactic acidosis [...] as of this encounter (statuses as of 04/23/2021) Resolved Problems Problem Noted Date Resolved Date [...] pain 01/24/2012 01/17/2017 Genetic Sleep Disorder Research Other*[id number] 05/13/2011 04/07/2016 Obstructive sleep apnea 01/18/2011 12/27/19 [...] as of this encounter (statuses as of 04/23/2021) Immunizations Name Administration Dates Next Due COVID-19 mRNA, LNP-s, No Pre serve, 2-Dose Series (Moderna) 11/23/2020 HEP A - Hepatitis A (Adult > [...] Encounters Date Type Specialty Care Team Description 04/26/2021 Office Visit Family Medicine [facility] [address] [facility] [address] [phone] 04/27/2021 Office Visit Podiatry Prakash Martino, DPM [address] [place] [address] 04/29/2021 Telemedicine Palliative Medicine Esperanza Painter MD [address] [place] [address] 04/29/2021 Appointment Radiology 05/11/2021 Office Visit Gastroenterology Sergei Sanchez P, DO [address] [place] [address] 05/14/2021 Laboratory Laboratory Johanna Bojorquez [facility] [address] [place] [address] [phone] 05/21/2021 Immunization/Injection Hematology Oncolog y Nurse, Med 4 [address] [place] [address] [phone] 06/02/2021 Office Visit Pharmacy [facility] [address] [place], [place] [phone] 06/07/2021 Nutrition Services Gastroenterology Melissa Omalley, RDN [address] [facility] [address] [place] [address] [phone] 07/06/2021 Office Visit Hematology Oncology Tono Sanchez MD [address] [place] [address] [phone] 07/22/2021 Office Visit Pulmonary Reynaldo Marquez MD [address] [place] [address] [phone] 07/27/2021 Office Visit Gastroenterology Lyssa Stout CRNP [address] [place] [address] [phone] 09/09/2021 Imaging Radiology Scheduled Orders Name Type Priority Associated Diagnoses Orde r Schedule MYCODE SUBSEQUENT ADULT Lab Routine MyCode Research Other*[id number] Every 6 Months for 2 Occurrences starting 04/23/2021 until 05/13/2022 Health Maintenance Due Date Last Done Comments DIABETES-EYE EXAM 06/12/2019 06/12/2018, , 06/12/2018, Additional history exists Dexa Scan 2020 Zoster Vaccines (3 of 3) 06/23/2020 04/28/2020, 11/11 COVID-19 Vaccine (2 - Moderna 2-dose series) 12/21/2020 11/23/2020 Influenza Vaccine (FLU shot) (#1) 2021 06/01/2020, [...] Vaccines (3 - Td) 05/01/2027 05/01/2017, 05/26/2008 MENINGOCOCCAL (MENACTRA/MENVEO) Aged Out No longer eligible based on patient's age to complete this topic documented as of this encounter Implants Implanted Type Area [place] 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
--- OUTSIDE RECORDS SUMMARY | 2023-05-10 20:37 | External Medical Summary | Summary of Care ---
Author Name Unknown Organization [facility] Address [place] [address] Care Team Providers Care Butter Liquefier Name Role Phone Vanita Dunn MD Primary Care Provid er Reason for Visit * Reason Onset Date Comments Appointment 04/26/2021 Encounter Details Date Type Department Care Team Description 04/26/2021 Telephone [facility] [address] [place] [address] Vanita Dunn MD [address] [place] [address] Appointment Allergies Active Allergy Reactions [...] 120 Vial 11 10/02/2019 Active nystatin (NYSTOP) 838483 UNIT/GM powder Apply topically to affected area [...] 60 Each 3 07/27/2020 Active Dexcom G6 Bulk Plant Supervisor Device Use as directed. To [...] Information Patient taking differently: 20 mg Oral [id number], (No instructions reported), Informant: Pharmacy, Reported on [...] Strip 3 10/29/2020 Active OneTouch Delica Plus [id number] TESTING once daily 100 Each 3 10/29/2020 [...] less than 7.0% ([facility]) Use to inject insulin four times daily; E11.42 400 Each 3 12/05/2020 Active Fluticasone Propionate 50 MCG/ACT Nasal Suspension (Flonase)Indication s:Sinus congestion USE 2 SPRAYS IN EACH NOSTRIL ONCE DAILY as directed 16 g 5 12/23/2020 Active Additional Information Patient taking differently: 2 [place] Nasal DAILY PRN, Congestion, Informant: Pharmacy, Reported [...] less than 7.0% ([facility]) inject 28 units under skin at bedtime [...] MEDICATION USE AGREEMENT 03/27/2012 017 Overview: 7/17/12 Urinary tract infection 01/27/2012 04/03/20 21 Sleep disturbance 01/24/2012 07/02/2014 Malaise and fatigue 01/24/2012 06/07/2016 Myalgia and myositis 01/24/2012 06/07/2016 Urinary frequency 01/24/2012 07/02/2014 Urgency of urination 01/24/2012 06/07/2016 Kidney disease, chronic, stage III (GFR 30-59 ml /min) 01/24/2012 03/27/2012 Chronic pain 01/24/2012 01/17/2017 Genetic Sleep Disorder Research Other*[id number] 05/13/2011 04/07/2016 Obstructive sleep apnea 01/18/2011 12/27/19 [...] Miscellaneous Notes * Telephone Encounter - Lyssa Stout CRNP - 04/26/2021 3:45 PM EDT Schedulers - pls assist w rescheudling CT Lyssa Osborne ZAK Stout * Telephone Encounter - Vanita Dunn MD - 04/26/2021 3:02 PM EDT FYI - pt will be rescheduling her liver CT that was originally scheduled in [place] for 04/29 - as it conflicts with her palliative appt in [place] - as you know, she will need it rescheduled in [place] since their dept is the only one with a candace lift (according to patient's recollection). Please assist with rescheduling. AG documented in this encounter Plan of Treatment Upcoming Encounters Date Type Specialty Care Team Description 04/27/2021 Office Visit Podiatry Prakash Martino DPM [address] [place] [address] 04/29/2021 Telemedicine Palliative Medicine Esperanza Painter MD [address] [place] [address] 04/29/2021 Appointment Radiology 05/11/2021 Office Visit Gastroenterology Sergei Sanchez P, DO [address] [place] [address] [phone] 05/14/2021 Laboratory [facility] [place], Lab Scenery [address] [place], [place] [id number] 05/21/2021 Immunization/Injection Hematology Oncolog y Nurse, Med 4 [address] [place] [address] [phone] 06/02/2021 Office Visit Pharmacy [place] [address] [place], [place] [id number] 06/07/2021 Nutrition Services Gastroenterology Melissa Omalley, [place] [address] [place] [address] [phone] 07/06/2021 Office Visit Hematology Oncology Tono Sanchez MD [address] [place] [address] [phone] 07/22/2021 Office Visit Pulmonary Reynaldo Marquez MD [address] [place], [place] [id number] 07/27/2021 Office Visit [facility]enterology [facility] [address] [facility] [address] [phone] 09/09/2021 Imaging Radiology Health Maintenance Due Date [...] of this encounter Implants Implanted Type Area Air Conditioning Manager Device Identifier Shelf Expiration Date Model / Serial / Lot Microtech Sure Clip Implanted:Qty: 2 on 06/03/2020 by Janis Hatch DO at OR [facility] Clip N/A: Colon 04/21/2022 [facility]-F-26-2 35-C-R / / [id number] documented as of this encounter Advance Directives Documents on File Type Date Recorded Patient Tool Keeper 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
--- OUTSIDE RECORDS SUMMARY | 2023-05-10 20:37 | External Medical Summary | Summary of Care ---
Author Name Unknown Organization [facility] Address [place] [address] Care Team Providers Care Anesthesia Tech Name Role Phone Vanita Dunn MD Primary Care Provid er Reason for Visit * Reason Onset Date Comments Appointment 04/26/2021 Encounter Details Date Type Department Care Team Description 04/26/2021 Telephone [facility] [address] [place] [address] Vanita Dunn MD [address] [place] [address] Appointment Allergies Active Allergy Reactions [...] 120 Vial 11 10/02/2019 Active nystatin (NYSTOP) 502837 UNIT/GM powder Apply topically to affected area [...] 60 Each 3 07/27/2020 Active Dexcom G6 Press Operator Instant Print Shop Device Use as directed. To test blood [...] Information Patient taking differently: 20 mg Oral [id number], (No instructions reported), Informant: Pharmacy, Reported on [...] Strip 3 10/29/2020 Active OneTouch Delica Plus [id number] TESTING once daily 100 Each 3 10/29/2020 [...] 7.0% ([facility]) Use to inject insulin four times daily; E11.42 400 Each 3 12/05/2020 Active Fluticasone Propionate 50 MCG/ACT Nasal Suspension (Flonase)Indication s:Sinus congestion USE 2 SPRAYS IN EACH NOSTRIL ONCE DAILY as directed 16 g 5 12/23/2020 Active Additional Information Patient taking differently: 2 [place] Nasal DAILY PRN, Congestion, Informant: Pharmacy, Reported [...] ([facility]) inject 28 units under skin at bedtime [...] pain 01/24/2012 01/17/2017 Genetic Sleep Disorder Research Other*[id number] 05/13/2011 04/07/2016 Obstructive sleep apnea 01/18/2011 12/27/19 [...] liver CT that was originally scheduled in [place] for 04/29 - as it conflicts with her palliative appt in [place] - as you know, she will need it rescheduled in [place] since their dept is the only one with a candace lift (according to patient's recollection). Please assist with rescheduling. AG documented in this encounter Plan of Treatment Upcoming Encounters Date Type Specialty Care Team Description 04/27/2021 Office Visit Podiatry Prakash Martino DPM [address] [place] [address] 04/29/2021 Telemedicine Palliative Medicine Esperanza Painter MD [address] [place] [address] [phone] 04/29/2021 Appointment Radiology 05/11/2021 Office Visit Gastroenterology Sergei Sanchez P, DO [address] [place] [address] [phone] 05/14/2021 Laboratory [facility] [place], Lab Scenery [address] [facility] [place] [address] [phone] 05/21/2021 Immunization/Injection Hematology Oncolog y Nurse, Med 4 [address] [place] [address] [phone] 06/02/2021 Office Visit Pharmacy [address] [address] [phone] 06/07/2021 Nutrition Services Gastroenterology Melissa Omalley, [place] [address] [place] [address] 07/06/2021 Office Visit Hematology Oncology Tono Sanchez MD [address] [place] [address] [phone] 07/22/2021 Office Visit Pulmonary Reynaldo Marquez MD [address] [facility], [place] [address] 07/27/2021 Office Visit Gastroenterology Lyssa Stout CRNP [address] [facility] [place] [address] [phone] 09/09/2021 Imaging Radiology Health Maintenance Due Date [...] [facility] Clip N/A: Colon 04/21/2022 [facility]-F-26-2 35-C-R / / [id number] documented as of this encounter Advance Directives Documents on File Type Date Recorded Patient Electronic Lab Technician 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 Agents on File Name Relationship Healthcare Agent Romainmo p Communication Syed Bustos Spouse Emergency Contact
--- OUTSIDE RECORDS SUMMARY | 2023-05-10 20:38 | External Medical Summary | Summary of Care ---
Author Name Unknown Organization [place] [address] Care Team Providers Care Restaurant Mgr Name Role Phone Kojo Dunn MD Primary Care Provid er Reason for Visit * Reason Comments eRx-Medication Refill Encounter Details Date Type Department Care Team Description 04/21/[address] [facility] [address] [place] [address] Rajwinder Carter, [address] [place] [address] Type 2 diabetes mellitus with hemoglobin A1c goal of less than 7.0% ([facility]) Allergies Active Allergy Reactions Severity Noted Date [...] 120 Vial 11 10/02/2019 Active nystatin (NYSTOP) 334960 UNIT/GM powder Apply topically to affected area [...] 60 Each 3 07/27/2020 Active Dexcom G6 Information Consultant Device Use as directed. To [...] Information Patient taking differently: 20 mg Oral [id number], (No instructions reported), Informant: Pharmacy, Reported on [...] Strip 3 10/29/2020 Active OneTouch Delica Plus Wmrouy65R TESTING once daily 100 Each 3 10/29/2020 [...] 2 CAPSULES IN THE EVENING 180 Cap 11/02/2020 Active Linzess 290 MCG Oral Capsule [...] of less than 7.0% ([facility]) Use to inject insulin four times daily; E11.42 400 Each 3 12/05/2020 Active Fluticasone Propionate 50 MCG/ACT Nasal Suspension (Flonase)Indication s:Sinus congestion USE 2 SPRAYS IN EACH NOSTRIL ONCE DAILY as directed 16 g 12/23/2020 Active Additional Information Patient taking differently: 2 [place] Nasal DAILY PRN, Congestion, Informant: Pharmacy, Reported [...] pain 01/24/2012 01/17/2017 Genetic Sleep Disorder Research Other*[id number] 05/13/2011 04/07/2016 Obstructive sleep apnea 01/18/2011 12/27/19 [...] Notes * Telephone Encounter - Bunny Adair [facility] - 04/23/2021 11:25 AM EDT Signed Prescriptions: Disp Refills Trulicity 4.5 MG/0.5ML Subcutaneous Soluti*6 mL 3 Sig: Inject one pen (4.5 mg) under the skin once weeklyAuthorizing Provider: KOJO DUNN User: BUNNY ADAIR * Telephone Encounter - Jarett Webber [facility] - 04/23/2021 9:14 AM EDT Pending Prescriptions: Disp Refills Trulicity 4.5 MG/0.5ML Subcutaneous Solut*6 mL 3 Sig: Inject 4.5 mg under the skin once weekly * Telephone Encounter - Jarett Webber [facility] - 04/23/2021 9:09 AM EDT Pending Prescriptions: Disp Refills Trulicity 4.5 MG/0.5ML Subcutaneous Solut*6 mL 3 Sig: Inject 4.5 mg under the skin once weekly Last Office/Telemedicine Visit: 04/05/2021 Next Office Visit: 04/26/2021 Scheduled Provider(s): Kojo Dunn MD If no future appointments scheduled, and last appointment is greater than a year ago, please schedule patient for a follow-up appointment Last date the medication was ordered: 01/25/21 Pharmacy: [id number] [facility] Is this request for a controlled substance?No [...] Team Description 04/26/2021 Office Visit Family Medicine Kojo Dunn MD [address] [place] [address] 04/27/2021 Office Visit Podiatry Prakash Martino DPM [address] [place] [address] 04/29/2021 Telemedicine Palliative Medicine Esperanza Painter MD [address] [place] [address] 04/29/2021 Appointment Radiology 05/11/2021 Office Visit Gastroenterology Sanchez, Sergei P, DO [address] [place] [address] [phone] 05/14/2021 Laboratory Laboratory Johanna Bojorquez 200 [place] [address] [phone] 05/21/2021 Immunization/Injection Hematology Oncolog y Nurse, Med 4 [address] [place] [address] [phone] 06/02/2021 Office Visit Pharmacy [facility] [address] [place] [address] [phone] 06/07/2021 Nutrition Services Gastroenterology Melissa Omalley, [place] [address] [place] [address] [phone] 07/06/2021 Office Visit Hematology Oncology Tono Sanchez MD 200 [place] [address] [phone] 07/22/2021 Office Visit Pulmonary Reynaldo Marquez MD [address] [place] [address] [phone] 07/27/2021 Office Visit Gastroenterology Lyssa Stout CRNP [address] [place] [address] [phone] 09/09/2021 Imaging Radiology Health Maintenance Due Date [...] of this encounter Implants Implanted Type Area Showroom Salesperson Device Identifier Shelf Expiration Date Model / Serial / Lot Microtech Sure Clip Implanted:Qty: 2 on 06/03/2020 by Janis Hatch DO at OR [facility] Clip N/A: Colon 04/21/2022 [facility]-F-26-2 35-C-R / / [id number] documented as of this encounter Visit Diagnoses Diagnosis Type 2 diabetes mellitus with hemoglobin A1c goal of less than 7.0% (HCC) documented in this encounter Advance Directives Documents on File Type Date Recorded Patient Blueprinting Machine Operator Expl 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 on File Name Relationship Healthcare Agent [facility] Communication Syed Bustos Spouse Emergency Contact
--- OUTSIDE RECORDS SUMMARY | 2023-05-10 20:38 | External Medical Summary ---
Author Name Unknown Address Unknown Organization [id number]:[facility] [place] [address] [place] [address] Laboratory Report Ordering Provider Test Date Status RHETT SALOMON 04/16/2021 20:15:00 Final Observation Date Value Abnormality Reference (Units ) Status Bacteria identified in Unspecified specimen by Culture 04/16/2021 20:15:00 [id number]^STAPHY LOCOCCUS AUREUS MRSA Abnormal Final Performing Location [facility] [place] [address] [place] [address] Ordering Provider Test Date Status RHETT SALOMON 04/16/2021 20:15:00 Final Observation Date Value Abnormality Reference (Units ) Status Nitrofurantoin susceptibility 04/16/2021 20:15:00 <=16 Susceptible Final Oxacillinsusceptibility 04/16/2021 20:15:00 >=4 Resistant Final Performing Location [facility] [place] [address] [facility] [address]
--- OUTSIDE RECORDS SUMMARY | 2023-05-10 20:38 | External Medical Summary ---
Author Name Unknown Address Unknown Organization K01[place] [place] [address] [facility] [place] [address] Laboratory Report Ordering Provider Test Date Status RHETT SALOMON 04/16/2021 20:15:00 Final Observation Date Value Abnormality Reference (Units ) Status Color of Urine by Auto 04/16/2021 20:15:00 Yellow Colorless, Light Yellow, Yellow, Dark Yellow Final Clarity, Urine 04/16/2021 20:15:00 Slightly Cloudy Abnormal Clear Final Glucose [Mass/volume] in Urine by Automated test strip 04/16/2021 20:15:00 Negative Negative (mg/dL) Final Bilirubin.total [Presence] in Urine by Automated test strip 04/16/2021 20:15:00 Negative Negative Final Ketones [Mass/volume] in Urine by Automated test strip 04/16/2021 20:15:00 Negative Negative (mg/dL) Final Specific gravity, Urine 04/16/2021 20:15:00 1.018 1.003-1.030 Final Hemoglobin [Presence] in Urine by Automated test strip 04/16/2021 20:15:00 Moderate Abnormal Negative Final pH, Urine 04/16/2021 20:15:00 6.0 5.0-7.5 (Units) Final Protein [Mass/volume] in Urine by Automated test strip 04/16/2021 20:15:00 Negative Negative (mg/dL) Final Urobilinogen [Mass/volume] in Urine by Automated test strip 04/16/2021 20:15:00 Normal Normal (mg/dL) Final Nitrite [Presence] in Urine by Automated test strip 04/16/2021 20:15:00 Negative Negative Final Leukocyte esterase [Presence] in Urine by Automated test strip 04/16/2021 20:15:00 Large Abnormal Negative Final RBC, Urine 04/16/2021 20:15:00 3-5 Abnormal 0-2 (/HPF) Final WBC, Urine 04/16/2021 20:15:00 50+ Abnormal 0-2 (/HPF) Final Bacteria [#/area] in Urine sediment by Microscopy high power field 04/16/2021 20:15:00 151-200 Abnormal 0-25 (/HPF) Final Yeast [#/area] in Urine sediment by Microscopy high power field 04/16/2021 20:15:00 Present Abnormal None (/HPF) Final CULTURE, URINE - [facility] 04/16/2021 20:15:00 Final Performing Location [facility] [place] [address] [facility] [address]
--- OUTSIDE RECORDS SUMMARY | 2023-05-10 20:38 | External Medical Summary ---
Author Name Unknown Address Unknown Organization K01:[facility] [place] [address] [place] [address] Laboratory Report Ordering Provider Test Date Status GRACE DEVLIN 04/16/2021 21:14:00 Final Observation Date Value Abnormality Reference (Units ) Status Troponin T 04/16/2021 21:14:00 12 <=14 (ng/ L) Final Performing Location [facility]ATORY [facility] - [address] [place] [address]
--- OUTSIDE RECORDS SUMMARY | 2023-05-10 20:38 | External Medical Summary ---
Author Name Unknown Address Unknown Organization K01[place] [place] [address] [place] [address] Laboratory Report Ordering Provider Test Date Status GRACE DEVLIN 04/16/2021 21:14:00 Final Observation Date Value Abnormality Reference (Units ) Status CRP, low-sensitivity 04/16/2021 21:14:00 22 Above high normal <=5 (mg/L) Final Performing Location [facility] - [address] [place] [address]
--- OUTSIDE RECORDS SUMMARY | 2023-05-10 20:38 | External Medical Summary | Summary of Care ---
Author Name Unknown Organization [place] [address] Care Team Providers Care Tower Erector Name Role Phone Vanita Dunn MD Primary Care Provid er Reason for Visit * Reason Comments Follow Up Foot and nail care Encounter Details Date Type Department Care Team Description 04/16/2021 Office Visit Podiatry [address] [place] [address] Prakash Martino, SIRENA [address] [place] [address] Paronychia of toe of right foot due to ingrown toenail*; Type II diabetes mellitus with peripheral circulatory disorder (HCC); Onychomycosis; Pain due to onychomycosis of toenails of both feet; Painful diabetic neuropathy (HCC) Allergies Active Allergy Reactions Severity Noted Date Comments Adhesive Tape Itching 04/29/2020 Penicillins Rash 02/12/2008 Perflutren Protein A Microsph 2019 Definity-lower back pain documented as of this encounter (statuses as of 04/16/2021) Medications Medication Sig Dispensed Refills Start Date [...] 120 Vial 11 10/02/2019 Active nystatin (NYSTOP) 458508 UNIT/GM powder Apply topically to affected area [...] 60 Each 3 07/27/2020 Active Dexcom G6 Java Development Manager Device Use as directed. To test [...] Information Patient taking differently: 20 mg Oral [id number], (No instructions reported), Informant: Pharmacy, Reported on [...] once daily 100 Strip 3 10/29/2020 Active NovavaxTouch Delica Plus [id number] TESTING once daily 100 Each 3 10/29/2020 [...] Active Additional Information Patient taking differently: 2 [place] Nasal DAILY PRN, Congestion, Informant: Pharmacy, Reported [...] less than 7.0% ([facility]) inject 28 units under skin at bedtime 30 mL 3 04/07/2021 Active documented as of this encounter (statuses as of 04/16/2021) Active Problems Problem Noted Date Lactic acidosis [...] as of this encounter (statuses as of 04/16/2021) Resolved Problems Problem Noted Date Resolved Date [...] pain 01/24/2012 01/17/2017 Genetic Sleep Disorder Research Other*[id number] 05/13/2011 04/07/2016 Obstructive sleep apnea 01/18/2011 12/27/19 [...] as of this encounter (statuses as of 04/16/2021) Immunizations Name Administration Dates Next Due COVID-19 [...] of this encounter Progress Notes * Prakash Martino, SIRENA - 04/16/2021 2:36 PM EDT Patient presents with a painful reddened right great toenail lateral border. It has been present for 1 weeks. Patient is a diabetic. Past Medical History: Diagnosis Date Cerebral palsy [...] of less than 7.0% ([facility]) 09/26/2013 ICD-10 update of inactive term Past Surgical History: Procedure Laterality Date BONE DEBRIDEMENT, FIRST 20 CM2 Right 04/16/2020 DEBRIDEMENT SKIN SUBCUTANEOUS TISSUE MUSCLE AND BONE performed [place] Vazquez [place] [facility] [place]/20[place] COLONOSCOPY 04/21/2009 repeat in 10 years COLONOSCOPY, DIAGNOSTIC (RECTUM) 10/04/2016 normal bx, repeat 10 yrs/[facility] COLONOSCOPY, DIAGNOSTIC (RECTUM) N/A 06/03/2020 internal hemorrhoids/biopsies show adenomatous polyps/recall 5 years/COLONOSCOPY FLEXIBLE PROXIMAL DIAGNOSTIC performed by Janis Hatch DO at OR [facility] COLONOSCOPY, DIAGNOSTIC (RECTUM) 03/17/2020 poor prep / [facility] DENTAL SURGERY PROCEDURE NEC wisdom teeth x 4 DILATION AND CURETTAGE (D&C) EGD, FLEXIBLE, DIAGNOSTIC 10/04/2016 gastritis/[facility] EGD, FLEXIBLE, DIAGNOSTIC 01/11/2018 eso varices, retained food, repeat 1 yr/[facility] EGD, FLEXIBLE, DIAGNOSTIC N/A 06/03/2020 severe erosive esophagitis/non-bleeding grade II esophageal varices/gastritis/biopsies show inflammatory changes/repeat 3-4 months/ESOPHAGOGASTRODUODENOSCOPY (EGD), FLEXIBLE, TRANSORAL, DIAGNOSTIC per formed by Janis Hatch DO at OR [facility] EGD, FLEXIBLE, DIAGNOSTIC 11/27/2019 eso varices, portal hypertensive gastropathy, gastritis / [facility] EGD, FLEXIBLE, DIAGNOSTIC N/A 08/05/2020 large amount of food in stomach/repeat 1.5 years/ESOPHAGOGASTRODUODENOSCOPY (EGD), FLEXIBLE, TRANSORAL, DIAGNOSTIC performed by Janis Hatch DO at OR [facility] EGD, FLEXIBLE, DIAGNOSTIC N/A 03/10/2021 ESOPHAGOGASTRODUODENOSCOPY (EGD), FLEXIBLE, TRANSORAL, DIAGNOSTIC performed by Kris Blankenship MD at [place] [facility] [place]IP[place] 10/05/2020 PELVIS/HIP JOINT SURGERY NEC teenager aid in walking REPAIR/GRAFT ACHILLES TENDON age 40 aid in walking Family History Problem Relation Age of Onset Heart Disorder Father of [place] at age 61 Diabetes Father Heart Disorder Mother of [place] age 72 Cancer None Arthritis None Stroke [...] file Gets together: Not on file Attends latter day service: Not on file Active member of [...] file Social History Narrative 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 To test [...] With spacer 16 g 1 nystatin (NYSTOP) 974428 UNIT/GM powder Apply topically to affected area [...] pain, redness or swelling on the joints SKIN/INTEGUMENTARY: Severe edema, No rash and No itching NEUROLOGIC: Patient wheelchair confined. No headaches, No seizures and No weakness Objective: Vascular examination: DP 1/4 right 0/4 left PT 0/4 bilateral SPVFT 3sec Dermatological examination: Lateral border left great toenail appears ingrown with erythema of border and paronychia Orthopedic examination: severe arthritis and clawtoes Neurological examination: Epicritic sensation intact Assessment: The primary encounter diagnosis was Paronychia of toe of right foot due to ingrown toenail. Diagnoses of Type II diabetes mellitus with peripheral circulatory disorder (HCC), Onychomycosis, Pain due to onychomycosis of toenails of both feet, and Painful diabetic neuropathy (HCC) were also pertinentto this visit. I recommended to the patient that a partial nail avulsion be performed to the right great toe. I explained to the patient risks, benefits, alternatives, and complications to this procedure. Complications include but are not limited to: infection, swelling, bleeding, pain, nail regrowth, recurrence. A partial excision of the border of the right great [facility]. Patient refused digital block. The toe was dressed with Silvadene/bandaid I instructed the patient to keep the dressing to the toe clean, dry, and intact until tomorrow. They may then remove the dressing and bath as normal. They are to soak the toe in warm water and epsom salts for 10-15min twice daily for the next 3 days. Antibiotic ointment and a bandaid are to be applied once daily until their follow up appointment in 7 days. They are to call sooner with any questions or concerns. Debridement of remainder of mycotic nails documented in this encounter Nursing Notes * Miley Vasquez LPN - 04/16/2021 2:21 PM EDT Foot and nail - patient states she thinks she has an ingrown nail on right great toe. documented in this encounter Plan of Treatment Upcoming Encounters Date Type Specialty Care Team Description 04/27/2021 Office Visit Podiatry Prakash Martino DPM [address] [place], [place] [id number] 04/29/2021 Telemedicine Palliative Medicine Esperanza Painter MD [address] [place] [address] 04/29/2021 Appointment Radiology 05/11/2021 Office Visit Gastroenterology Sergei Sanchez P, DO [address] [place] [address] 05/14/2021 Laboratory Laboratory [facility], Lab Scenery [address] [place] [address] [phone] 05/21/2021 Immunization/Injection Hematology Oncolog y Nurse, Med [address] [place] [address] [phone] 06/02/2021 Office Visit Pharmacy [facility] [address] [place] [address] [phone] 06/07/2021 Nutrition Services Gastroenterology Melissa Omalley RDN [address] [place] [address] [phone] 07/06/2021 Office Visit Hematology Oncology Tono Sanchez MD [address] [facility] [place] [address] [phone] 07/22/2021 Office Visit Pulmonary Reynaldo Marquez MD [address] [place] [address] [phone] 07/27/2021 Office Visit Gastroenterology Lyssa Stout CRNP [address] [place] [address] [phone] 09/09/2021 Imaging Radiology Scheduled Orders Name Type Priority Associated Diagnoses Orde r Schedule NAIL,RMV SINGLE NAIL PLATE Procedures Routine Paronychia of toe of right foot due to ingrown toenail Type II diabetes mellitus with peripheral circulatory disorder (HCC) Ordered: 04/16/2021 DEBRIDEMENT OF NAILS 6 OR MORE Procedures Routine Type II diabetes mellitus with peripheral circulatory disorder (HCC) Onychomycosis Pain due to onychomycosis of toenails of both feet Painful diabetic neuropathy (HCC) Ordered: 04/16/2021 Health Maintenance Due Date Last Done Comments [...] 09/08/2021 09/08/2020, 09/02/2019, 04/04/2018, Additional history exists DIABETES-URINE MICROALBUMIN EVERY 12 MONTHS 03/31/2022 03/31/2021, 03/22/2021, 03/07/2021, Additional history exists Yearly B-12 04/01/2022 04/01/2021, 03/11, 07/14/2020, Additional history exists DIABETES-FOOT EXAM 04/05/2022 04/05/2021, 0 11/06/2019, 01/09/2019, Additional history exists Pneumococcal Vaccine: 65+ Years (2 of 2) 05/02/2024 05/02/2019, 06/01/2010 COLONOSCOPY-EVERY 5 YRS AGES 18-100 06/03/2025 06/03/2020, 06/03/2020, 03/17/2020, Additional history exists DTaP,Tdap,and Td Vaccines (3 - Td) 05/01/2027 05/01/2017, 05/26/2008 MENINGOCOCCAL (MENACTRA/MENVEO) Aged Out No longer eligible based on patient's age to complete this topic documented as of this encounter Implants Implanted Type Area Manager Of International Device Identifier Shelf Expiration Date Model / Serial / Lot Microtech Sure Clip Implanted:Qty: 2 on 06/03/2020 by Janis Hatch DO at OR [facility] Clip N/A: Colon 04/21/2022 [facility]-F-26-2 35-C-R / / [id number] documented as of this encounter Visit Diagnoses Diagnosis Paronychia of toe of right foot due to ingrown toenail- Primary Type II diabetes mellitus with peripheral circulatory disorder (HCC) Type II or unspecified type diabetes mellitus with peripheral circulatory disorders, not stated as uncontrolled Onychomycosis Dermatophytosis of nail Pain due to onychomycosis of toenails of both feet Painful diabetic neuropathy (HCC) Type II or unspecified type diabetes mellitus with neurological manifestations, not stated as uncontrolled documented in this encounter Advance Directives Documents on File Type Date Recorded Patient Formula Checker 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 on File Name Relationship Healthcare Agent Romainca navya Communication Syed Bustos Spouse Emergency Contact
--- OUTSIDE RECORDS SUMMARY | 2023-05-10 20:38 | External Medical Summary | Summary of Care ---
Author Name Unknown Organization [facility] Address [place] [address] Care Team Providers Care Acupuncturist Name Role Phone Vanita Dunn MD Primary Care Provid er Reason for Visit * Reason Onset Date Comments Emergency Department Follow-Up 04/22/2021 Encounter Details Date Type Department Care Team Description 04/22/2021 Telephone [facility] [address] [place] [address] Vanita Dunn MD [address] [place] [address] Emergency Department Follow-Up Allergies Active Allergy Reactions Severity Noted Date Comments Adhesive Tape Itching 04/29/2020 Penicillins Rash 02/12/2008 Perflutren Protein A Microsph 2019 Definity-lower back pain documented as of this encounter (statuses as of 04/22/2021) Medications Medication Sig Dispensed Refills Start Date [...] 120 Vial 11 10/02/2019 Active nystatin (NYSTOP) 191087 UNIT/GM powder Apply topically to affected area [...] 60 Each 3 07/27/2020 Active Dexcom G6 Compensation Supervisor Device Use as directed. To test [...] Information Patient taking differently: 20 mg Oral [id number], (No instructions reported), Informant: Pharmacy, Reported on [...] Strip 3 10/29/2020 Active OneTouch Delica Plus [id number] TESTING once daily 100 Each 3 10/29/2020 [...] less than 7.0% ([facility]) inject 28 units under skin at bedtime 30 mL 3 04/07/2021 Active Docusate Sodium 100 MG Oral Capsule (Colace) Take 1 Cap by mouth 2 times a day. 68 Cap 0 04/16/2021 Active documented as of this encounter (statuses as of 04/22/2021) Active Problems Problem Noted Date Lactic acidosis [...] as of this encounter (statuses as of 04/22/2021) Resolved Problems Problem Noted Date Resolved Date [...] pain 01/24/2012 01/17/2017 Genetic Sleep Disorder Research Other*[id number] 05/13/2011 04/07/2016 Obstructive sleep apnea 01/18/2011 12/27/19 [...] as of this encounter (statuses as of 04/22/2021) Immunizations Name Administration Dates Next Due COVID-19 [...] encounter Miscellaneous Notes * Telephone Encounter - Shelly Hirsch LPN - 04/22/2021 1:19 PM EDT Emergency Department Follow Up: When was patient seen: 04/16/21 Which ED: [facility] What were they seen for: stomach pain What testing did they have done: ct scan and xray What did ED think was wrong (dx): unknown Any new medications prescribed: no How is patient feeling today: yes Patient concerns today: said she was pretty constipated. They checked out her heart and everything.Nothing wrong with it. Placed with Dr. Dunn on 04/26/21 @ 2 p.m. * Telephone Encounter - Giovana Lorenzo OSA - 04/22/2021 1:14 PM EDT Reason for patient's call: ER follow up - [facility] ER for pain in stomach 04/16/2021. Caller was transferred to Shelly at the nurse line. documented in this encounter Plan of Treatment Upcoming Encounters Date Type Specialty Care Team Description 04/26/2021 Office Visit Family Medicine Vanita Dunn MD [address] [place] [address] [phone] 04/27/2021 Office Visit Podiatry Prakash Martino DPM [address] [place] [address] 04/29/2021 Telemedicine Palliative Medicine Esperanza Painter MD [address] [place] [address] 04/29/2021 Appointment Radiology 05/11/2021 Office Visit Gastroenterology Sergei Sanchez P, DO [address] [place] [address] [phone] 05/14/2021 Laboratory Laboratory [place], Lab Scenery [address] [place] [address] [phone] 05/21/2021 Immunization/Injection Hematology Oncolog y Nurse, Med [address] [place] [address] [phone] 06/02/2021 Office Visit Pharmacy [facility] [address] [facility] [place] [id number] 06/07/2021 Nutrition Services Gastroenterology Melissa Omalley, SAMANTHA [address] [place] [address] [phone] 07/06/2021 Office Visit Hematology Oncology Tono Sanchez MD [address] [place] [address] [phone] 07/22/2021 Office Visit Pulmonary Reynaldo Marquez MD [address] [place] [address] [phone] 07/27/2021 Office Visit Gastroenterology Lyssa Stout CRNP [address] [facility] [address] [phone] 09/09/2021 Imaging Radiology Health Maintenance Due Date [...] of this encounter Implants Implanted Type Area Book Sewer Device Identifier Shelf Expiration Date Model / Serial / Lot Microtech Sure Clip Implanted:Qty: 2 on 06/03/2020 by Janis Hatch DO at OR [facility] Clip N/A: Colon 04/21/2022 [facility]-F-26-2 35-C-R / / [id number] documented as of this encounter Advance Directives Documents on File Type Date Recorded Patient Microfilm Duplicating Unit Supervisor 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 on File Name Relationship Healthcare Agent [facility] p Communication Syed Bustso Spouse Emergency Contact
--- OUTSIDE RECORDS SUMMARY | 2023-05-10 20:39 | External Medical Summary ---
Author Name Unknown Address Unknown Organization [id number][place] [place] [address] [place] [address] Laboratory Report Ordering Provider Test Date Status RHETT SALOMON 04/16/2021 17:54:00 Final Observation Date Value Abnormality Reference (Units ) Status PT 04/16/2021 17:54:00 16.5 Above high normal 11 .5-14.6 (seconds) Final INR 04/16/2021 17:54:00 1.31 Above high normal 0. 84-1.14 Final Performing Location [facility] [place] [address] [place] [address]
--- OUTSIDE RECORDS SUMMARY | 2023-05-10 20:39 | External Medical Summary ---
Author Name Unknown Address Unknown Organization [id number][place] [place] [address] [place] [address] Laboratory Report Ordering Provider Test Date Status GRACE DEVLIN 04/16/2021 17:54:00 Final Observation Date Value Abnormality Reference (Units ) Status Erythrocyte sedimentation rate by Photometric method 04/16/2021 17:54:00 52 Above high normal <30 (mm/hour) Final Performing Location [facility] [place] [address] [place] [address]
--- OUTSIDE RECORDS SUMMARY | 2023-05-10 20:39 | External Medical Summary ---
Author Name Unknown Address Unknown Organization [id number][place] [place] [address] [place] [address] Laboratory Report Ordering Provider Test Date Status RHETT SALOMON 04/16/2021 17:54:00 Final Observation Date Value Abnormality Reference (Units ) Status Lipase 04/16/2021 17:54:00 14 13-60 (U/L ) Final Performing Location LABORATORY [facility] - [address] [place] [address]
--- OUTSIDE RECORDS SUMMARY | 2023-05-10 20:39 | External Medical Summary ---
Author Name Unknown Address Unknown Organization [id number]:[facility] [place] [address] [place] [address] Laboratory Report Ordering Provider Test Date Status RHETT SALOMON 04/16/2021 17:54:00 Final Observation Date Value Abnormality Reference (Units ) Status Troponin T 04/16/2021 17:54:00 11 <=14 (ng/ L) Final Performing Location LABORATORY [facility] - [address] [place] [address]
--- OUTSIDE RECORDS SUMMARY | 2023-05-10 20:39 | External Medical Summary ---
Author Name Unknown Address Unknown Organization [id number][place] [place] [address] [facility] [address] Laboratory Report Ordering Provider Test Date Status RHETT SALOMON 04/16/2021 17:54:00 Final Observation Date Value Abnormality Reference (Units ) Status SYNC LEUKOCYTES IN BLOOD BY AUTOMATED COUNT 04/16/2021 17:54:00 3.84 Below low normal 4.00-10.80 (K/uL) Final Segs 04/16/2021 17:54:00 57.1 40.0-75.0 (%) Final Lymphs % 04/16/2021 17:54:00 19.5 18.0-42.0 (%) Final Monos 04/16/2021 17:54:00 14.8 Above high normal 1.0-11.0 (%) Final Eosinophils 04/16/2021 17:54:00 6.8 Above high normal 0.0-6.0 (%) Final Basos 04/16/2021 17:54:00 1.0 0.0-2.0 (%) Final Immature Granulocyte, Percent 04/16/2021 17:54:00 0.8 0.0-2.0 (%) Final Absolute Segs 04/16/2021 17:54:00 2.19 1.80-7.70 (K/uL) Final Lymphs, absolute 04/16/2021 17:54:00 0.75 Below low normal 1.00-4.80 (K/ul) Final Monos, Abs 04/16/2021 17:54:00 0.57 0.00-1.10 (K/uL) Final Eos, Abs 04/16/2021 17:54:00 0.26 0.00-0.70 (K/uL) Final Basos, Abs 04/16/2021 17:54:00 0.04 0.00-0.20 (K/uL) Final Immature Granulocytes, Number 04/16/2021 17:54:00 0.03 0.00-0.20 (K/uL) Final Performing Location [facility] [place] [facility] [address] [facility] [address]
--- OUTSIDE RECORDS SUMMARY | 2023-05-10 20:39 | External Medical Summary ---
Author Name Unknown Address Unknown Organization [id number]:[facility] [place] [address] [facility] [address] [place] [address] Laboratory Report Ordering Provider Test Date Status AIMERHETT 04/16/2021 17:54:00 Final Observation Date Value Abnormality Reference (Units ) Status BUN 04/16/2021 17:54:00 10 6-20 (mg/dL) Final Creatinine 04/16/2021 17:54:00 0.6 0.5-1.0 (mg/dL) Final Glomerular filtration rate/1.73 sq M.predicted [Volume Rate/Area] in Serum, Plasma or Blood by Creatinine-based formula (CKD-EPI) 04/16/2021 17:54:00 >90.0 >=60.0 (mL/min) Final Performing Location [facility] [place] [address] [place] [address]
--- OUTSIDE RECORDS SUMMARY | 2023-05-10 20:39 | External Medical Summary ---
Author Name Unknown Address Unknown Organization [id number]:[facility] [place] [address] [place] [address] Laboratory Report Ordering Provider Test Date Status RHETT SALOMON 04/16/2021 17:54:00 Final Observation Date Value Abnormality Reference (Units ) Status Lactic Acid, Whole Blood 04/16/2021 17:54:00 1.8 0.4-2.0 (mmol/L) Final Performing Location [facility] [place] - [address] [place] [address]
--- OUTSIDE RECORDS SUMMARY | 2023-05-10 20:39 | External Medical Summary ---
Author Name Unknown Address Unknown Organization K01:[facility] [place] - [address] [place] [address] Laboratory Report Ordering Provider Test Date Status RHETT SALOMON 04/16/2021 17:54:00 Final Observation Date Value Abnormality Reference (Units ) Status WBC, Total 04/16/2021 17:54:00 3.84 Below low normal 4.00-10.80 (K/uL) Final RBC 04/16/2021 17:54:00 2.69 Below low normal 3.85-5.15 (M/uL) Final Hemoglobin 04/16/2021 17:54:00 8.1 Below low normal 12.0-15.3 (g/dL) Final HCT 04/16/2021 17:54:00 27.5 Below low normal 36.0-45.2 (%) Final MCV 04/16/2021 17:54:00 102.2 Above high normal 81.5-97.5 (fL) Final MCH 04/16/2021 17:54:00 30.1 27.0-34.0 (pg) Final MCHC 04/16/2021 17:54:00 29.5 Below low normal 32.0-36.0 (g/dL) Final RDW 04/16/2021 17:54:00 19.5 Above high normal 11.5-15.5 (%) Final MPV 04/16/2021 17:54:00 14.0 Above high normal 6.6-11.1 (fL) Final Nucleated erythrocytes/100 leukocytes [Ratio] in Blood by Automated count 04/16/2021 17:54:00 0 <=0 (/100 WBCs) Final Platelets 04/16/2021 17:54:00 99 Below low normal 140-400 (K/uL) Final Performing Location [facility] [place] - [address] [place] [address]
--- OUTSIDE RECORDS SUMMARY | 2023-05-10 20:40 | External Medical Summary | Summary of Care ---
Author Name Unknown Organization [facility] Address [place] [address] Care Team Providers Care Community Health Educator Name Role Phone Vanita Dunn MD Primary Care Provid er Reason for Visit * Reason Onset Date Comments Advice 04/14/2021 Encounter Details Date Type Department Care Team Description 04/14/2021 Telephone [facility] [address] [place] [address] Vanita Dunn MD [address] [place] [address] Advice Allergies Active Allergy Reactions Severity Noted Date Comments Adhesive Tape Itching 04/29/2020 Penicillins Rash 02/12/2008 Perflutren Protein A Microsph 2019 Definity-lower back pain documented as of this encounter (statuses as of 04/15/2021) Medications Medication Sig Dispensed Refills Start Date [...] 120 Vial 11 10/02/2019 Active nystatin (NYSTOP) 268454 UNIT/GM powder Apply topically to affected area [...] 60 Each 3 07/27/2020 Active Dexcom G6 Group Contract Analyst Device Use as directed. To test [...] Information Patient taking differently: 20 mg Oral [id number], (No instructions reported), Informant: Pharmacy, Reported on [...] Strip 3 10/29/2020 Active OneTouch Delica Plus [id number] TESTING once daily 100 Each 3 10/29/2020 [...] 7.0% ([facility]) Use to inject insulin four times daily; E11.42 400 Each 3 12/05/2020 Active Fluticasone Propionate 50 MCG/ACT Nasal Suspension (Flonase)Indication s:Sinus congestion USE 2 SPRAYS IN EACH NOSTRIL ONCE DAILY as directed 16 g 5 12/23/2020 Active Additional Information Patient taking differently: 2 [place] Nasal DAILY PRN, Congestion, Informant: Pharmacy, Reported [...] 7.0% ([facility]) inject 28 units under skin at bedtime 30 mL 3 04/07/2021 Active documented as of this encounter (statuses as of 04/15/2021) Active Problems Problem Noted Date Lactic acidosis [...] as of this encounter (statuses as of 04/15/2021) Resolved Problems Problem Noted Date Resolved Date [...] pain 01/24/2012 01/17/2017 Genetic Sleep Disorder Research Other*[id number] 05/13/2011 04/07/2016 Obstructive sleep apnea 01/18/2011 12/27/19 [...] as of this encounter (statuses as of 04/15/2021) Immunizations Name Administration Dates Next Due COVID-19 [...] Telephone Encounter - Vanita Dunn MD - 04/15/2021 1:55 PM EDT Nursing: I agree with enema. Call and Make sure patient is taking 45 grams of lactulose three times a day - she tends to under dose this, because it makes her stools too loose. If she is taking that much, shecan add one more dose once a day, each day in which she does not move her bowels. AG * Telephone Encounter - Connie Arguello RN - 04/14/2021 1:08 PM EDT Case management not longer following patient due to change in insurance Connie Arguello RN * Telephone Encounter - Josselin Gaspar LPN - 04/14/2021 11:32 AM EDT Spoke to patient-she says her bowels did move yesterday one time. She was having abdominal pain yesterday which seems to be better today. She is concerned because she feels like she needs to move her bowels but hasn't since then. She stated she was going to go buy an enema and see if that helps. She will call back to let us know if that does not help. Any other advice? * Telephone Encounter - Imelda Galvan OSA - 04/14/2021 9:30 AM EDT Patient states she hasn't had a bowel movement in 3 days. Then she said she went a little bit yesterday, not very much . Patient is having abdominal bloating and pain. She has not tried anything overthe counter. documented in this encounter Plan of Treatment Upcoming Encounters Date Type Specialty Care Team Description 04/16/2021 Office Visit Podiatry Prakash Martino DPM [address] [place] [address] 04/29/2021 Telemedicine Palliative Medicine Esperanza Painter MD [address] [place] [address] 04/29/2021 Appointment Radiology 05/11/2021 Office Visit Gastroenterology Sergei Sanchez P, DO [address] [place] [address] [phone] 05/14/2021 Laboratory Laboratory Johanna Bojorquez [facility] [address] [place] [address] [phone] 05/21/2021 Immunization/Injection Hematology Oncolog y Nurse, Med 4 [address] [place] [address] [phone] 06/02/2021 Office Visit Pharmacy [facility] [address] [place], [place] [id number] 06/07/2021 Nutrition Services Gastroenterology Melissa Omalley, [place] [address] [place] [address] [phone] 07/06/2021 Office Visit Hematology Oncology Tono Sanchez MD 200 [place] [address] [phone] 07/22/2021 Office Visit Pulmonary [facility]aldo [facility]quez MD [address] [facility] [id number] 07/27/2021 Office Visit [facility]ology [facility] [address] [facility] [address] [phone] 09/09/2021 Imaging Radiology Health Maintenance Due Date [...] of this encounter Implants Implanted Type Area Recruiting Associate Device Identifier Shelf Expiration Date Model / Serial / Lot Microtech Sure Clip Implanted:Qty: 2 on 06/03/2020 by Janis Hatch DO at OR [facility] Clip N/A: Colon 04/21/2022 [facility]-F-26-2 35-C-R / / [id number] documented as of this encounter Advance Directives Documents on File Type Date Recorded Patient Director Digital 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 Agent [facility] p Communication Syed Fariasel Spouse Emergency Contact
--- OUTSIDE RECORDS SUMMARY | 2023-05-10 20:40 | External Medical Summary | Summary of Care ---
Author Name Unknown Organization [place] [address] Care Team Providers Care Director Motion Picture Name Role Phone Vanita Dunn MD Primary Care Provid er Reason for Visit * Reason Comments IV Therapy Monoferric * Episode Based Medications (Routine) Status Reason Specialty Diagnoses / Procedures Re ferred By Contact Referred To Contact Authorized Diagnoses Iron deficiency anemia due to chronic blood loss Procedures PA INJ. FE DERISOMALTOSE 10 MG Tono Sanchez MD 200 [facility] [place] [address] Anc Hem/Onc [address] [place] [address] Encounter Details Date Type Department Care Team Description 04/14/2021 Hem/Onc Treatment Hematology/Oncology Treatment, [address] [place] [address] Maryellen, Chair [address] Hem On[address] [place] [address] Iron deficiency anemia due to chronic blood loss* Allergies Active Allergy Reactions Severity Noted Date Comments Adhesive Tape Itching 04/29/2020 Penicillins Rash 02/12/2008 Perflutren Protein A Microsph 2019 Definity-lower back pain documented as of this encounter (statuses as of 04/14/2021) Medications Medication Sig Dispensed Refills Start Date [...] 120 Vial 11 10/02/2019 Active nystatin (NYSTOP) 882399 UNIT/GM powder Apply topically to affected area [...] nebulizer 4 times a day. 3 mL 07/27/2020 Active Additional Information Patient taking differently: 3 mL Nebulizer QID PRN, Shortness of Breath, Informant: Pharmacy, Reported on 02/04/2021 Fluticasone-[place] rol 250-50 MCG/DOSE Inhalation Aerosol Powder Breath Activated (Advair Diskus)Indications: Moderate persistent asthma with acute exacerbation Inhale 1 Puff by mouth 2 times a day. 60 Each 3 07/27/2020 Active Dexcom G6 Jig And Fixture Builder Apprentice Device Use as directed. To test [...] Information Patient taking differently: 20 mg Oral [id number], (No instructions reported), Informant: Pharmacy, Reported on [...] Strip 3 10/29/2020 Active OneTouch Delica Plus Humxtz97C TESTING once daily 100 Each 3 10/29/2020 [...] 7.0% ([facility]) Use to inject insulin four times daily; E11.42 400 Each 3 12/05/2020 Active Fluticasone Propionate 50 MCG/ACT Nasal Suspension (Flonase)Indication s:Sinus congestion USE 2 SPRAYS IN EACH NOSTRIL ONCE DAILY as directed 16 g 5 12/23/2020 Active Additional Information Patient taking differently: 2 [place] Nasal DAILY PRN, Congestion, Informant: Pharmacy, Reported [...] as of this encounter (statuses as of 04/14/2021) Active Problems Problem Noted Date Lactic acidosis [...] as of this encounter (statuses as of 04/14/2021) Resolved Problems Problem Noted Date Resolved Date [...] pain 01/24/2012 01/17/2017 Genetic Sleep Disorder Research Other*[id number] 05/13/2011 04/07/2016 Obstructive sleep apnea 01/18/2011 12/27/19 [...] as of this encounter (statuses as of 04/14/2021) Immunizations Name Administration Dates Next Due COVID-19 [...] Sign Reading Time Taken Comments Blood Pressure 131/76 04/14/2021 2:30 PM EDT Pulse 64 04/14/2021 2:30 PM EDT Temperature - - Respiratory Rate 18 04/14/2021 2:30 PM EDT Oxygen Saturation - - Inhaled [...] Nursing Notes * Cathy Patton RN - 04/14/2021 4:26 PM EDT Monoferric infusion is complete, pt tolerated well. Pt waited for 30min observation period after, no issues noted. Goals: pt to remain free from injury Possible barriers to meeting goals: pt in motorized scooter, movement with IV pole Stability of the patient: Moderately stable - low risk of patient condition declining or worsening Summary regarding today's goals: Met: pt remained free from inury Pt discharged in stable condition. * Cathy Patton RN - 04/14/2021 3:07 PM EDT Ch 3. Pt arrived today for Monoferric infusion. She reports she has had some abd pain, she reports related to bowels. She denies any new concerns today. Safety and Risk for Injury Patient will remain free from injury. Ensure appropriate safety devices are available. Provide and maintain safe environment. documented in this encounter Plan of Treatment Upcoming Encounters Date Type Specialty Care Team Description 04/16/2021 Office Visit Podiatry Prakash Martino DPM [address] [place] [address] 04/29/2021 Telemedicine Palliative Medicine Esperanza Painter MD [address] [place] [address] 04/29/2021 Appointment Radiology 05/11/2021 Office Visit Gastroenterology Sergei Sanchez P, DO [address] [place] [address] [phone] 05/14/2021 Laboratory Laboratory Maryellen Johanna [facility] [address] [place] [address] [phone] 05/21/2021 Immunization/Injection Hematology Oncolog y Nurse, Med 4 [address] [place] [address] [phone] 06/02/2021 Office Visit Pharmacy [facility] [address] [place], [place] [phone] 06/07/2021 Nutrition Services Gastroenterology Melissa Omalley, [place] [address] [place] [address] [phone] 07/06/2021 Office Visit Hematology Oncology Tono Sanchez MD [address] [place] [address] [phone] 07/22/2021 Office Visit Pulmonary Reynaldo Marquez MD [address] [facility] [place] [id number] 07/27/2021 Office Visit Gastroenterology Lyssa Stout CRNP 132 [place] [address] [phone] 09/09/2021 Imaging Radiology Health Maintenance Due Date [...] of this encounter Implants Implanted Type Area Calibration Technician Device Identifier Shelf Expiration Date Model / Serial / Lot Microtech Sure Clip Implanted:Qty: 2 on 06/03/2020 by Janis Hatch DO at OR [facility] Clip N/A: Colon 04/21/2022 [facility]-F-26-2 35-C-R / / [id number] documented as of this encounter Visit Diagnoses [...] Push, ONCE PRN Other, Hypersensitivity Reaction, Starting 04/14/21 at 1444, Until [place] 04/15/21 at 1443, For 24 hours EPINEPHrine 1 MG/ML inj 0.3 mg 0.3 mg, Intramuscular, ONCE PRN Other, Hypersensitivity Reaction or Anaphylaxis, Starting Mon04/14/21 at 1444, Until [place] 04/15/21 at 1443, For 24 hours hEParin 100 UNIT/ML Lock Flush inj 500 Units 500 Units (5 mL), IV Lock, PRN Other, IV Flush, Starting Mon04/14/21 at 1444, Until [place] 04/15/21 at 1443, For 24 hours, Do not flush if lock, PICC, or central line not in place; IV infusing or unable to flush., Hydrocortisone Na Succinate PF (Solu-Cortef) inj 100 mg 100 mg, IV Push, ONCE PRN Other, Hypersensitivity Reaction, Starting Mon04/14/21 at 1444, Until [place] 04/15/21 at 1443, For 24 hours NSS infusion 500 mL, Intravenous, at 50 mL/hr, CONTINUOUS, Starting Mon04/14/21 at 1545, Until [place] 04/15/21 at 0144 Start Infusion 04/14/2021 2:55 PM EDT 500 mL 50 mL/hr sodium chloride 0.9% flush/inj 10 mL 10 mL, IV Push, PRN Other, IV Flush, Starting Mon04/14/21 at 1444, Until [place] 04/15/21 at 1443, For 24 hours, Do not flush if lock, PICC, or central line not in place; IV infusing or unable to flush., Inactive Administered Medications - up to 3 most recent administrations Medication Order MAR Action Action Date Dose Rate Site Ferric derisomaltose (Monoferric) 1,000 mg in NSS 250 mL ivpb 1,000 mg, IV Piggyback, ONCE, 1 dose, Mon04/14/21 at 1515, DOSING GUIDELINES: For patient weight LESS THAN 50 kg: Dose 20 mg/kg For patient weight 50 Kg or greater: Dose 1000 mg , Start Infusion 04/14/2021 3:14 PM EDT 1,000 mg 500 mL/hr documented in this encounter Advance Directives Documents on File Type Date Recorded Patient Mediator 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 Healthcare Agent [facility] navya Communication Syed Fariasel Spouse Emergency Contact
--- OUTSIDE RECORDS SUMMARY | 2023-05-10 20:40 | External Medical Summary | Summary of Care ---
Author Name Unknown Organization [facility] Address [place] [address] Care Team Providers Care Philosophy Specialist Name Role Phone Vanita Dunn MD Primary Care Provid er Reason for Visit * Reason Onset Date Comments Constipation 03/19/2021 Encounter Details Date Type Department Care Team Description 03/19/2021 Organizational Development Director Telephone [facility] [address] [place] [address] Connie Arguello, RN [address] [place] [address] Constipation Allergies Active Allergy Reactions Severity Noted Date [...] 120 Vial 11 10/02/2019 Active nystatin (NYSTOP) 045892 UNIT/GM powder Apply topically to affected area [...] 60 Each 3 07/27/2020 Active Dexcom G6 Technical Analyst Device Use as directed. To test [...] Information Patient taking differently: 20 mg Oral [id number], (No instructions reported), Informant: Pharmacy, Reported on [...] Strip 3 10/29/2020 Active OneTouch Delica Plus Bgaepj29P TESTING once daily 100 Each 3 10/29/2020 [...] Active Additional Information Patient taking differently: 2 [place] Nasal DAILY PRN, Congestion, Informant: Pharmacy, Reported [...] of heparin. 1 Each 0 03/12/2021 Active documented as of this encounter (statuses [...] pain 01/24/2012 01/17/2017 Genetic Sleep Disorder Research Other*[id number] 05/13/2011 04/07/2016 Obstructive sleep apnea 01/18/2011 12/27/19 [...] you have serious difficulty h earing? No 03/08/2021 Are you blind or do you have serious difficulty seeing, even when wearing glasses? No 03/08/2021 Do you have serious difficul ty walking or climbing stairs? 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 03/08/2021 Do you have difficulty dress ing or bathing? 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 03/08/2021 Because of a physical, menta l, or emotional condition, do you have difficulty doing errands alone such as visiting a doctor s office or shopping? (15 years old or older) Yes 03/08/20 Cognitive Status Response Date of Assessm ent Because of a physical, menta l, or emotional condition, do you have serious difficulty concentrating, remembering, or making decisions? (5 years old or older No 03/08/2021 documented as of this encounter Miscellaneous Notes * Telephone Encounter - Connie Arguello RN - 03/19/2021 10:[address] Dunn, I spoke with patient's today, he says she has not had a bowel movement since 03/15/21-home health nurse was out this morning, she told the that she heard lots of "gurggling", patient denies abdominal pain or nausea. Patient's confirms he is giving her 60 cc of Lactulose 3 times a day, said he has given her one dose or Miralax yesterday, plans to give her another dosetoday. Patient has a history of going to the hospital for constipation issues-wondering if there should patrick needed order for an enema? Does she need GI follow up- thanks Connie Arguello RN documented in this encounter Plan of Treatment Upcoming Encounters Date Type Specialty Care Team Description 04/14/2021 Hem/Onc Treatment Hematology Oncology [place], Chair 9 Hem Onc Scenery [address] [place] [address] [phone] 04/16/2021 Office Visit Podiatry Prakash Martino DPM [address] [place] [address] 04/29/2021 Telemedicine Palliative Medicine Esperanza Painter MD [address] [place] [address] 04/29/2021 Appointment Radiology 05/11/2021 Office Visit Gastroenterology Sergei Sanchez P, DO [address] [place] [address] [phone] 05/21/2021 Immunization/Injection Hematology Oncolog y Nurse, Med [address] [place] [address] [address] [phone] 06/02/2021 [facility] Visit [facility] [address] [facility] [id number] 06/07/2021 Nutrition Services Gastroenterology Melissa Omalley, [place] [address] [facility] [place] [id number] 07/06/2021 Office Visit Hematology Oncology Tono Sanchez MD [address] [place] [address] [phone] 07/27/2021 Office Visit Gastroenterology Lyssa Stout CRNP [address] [facility] [place] [address] [phone] 09/09/2021 Imaging Radiology Health Maintenance Due Date [...] of this encounter Implants Implanted Type Area Investment Director Device Identifier Shelf Expiration Date Model / Serial / Lot Microtech Sure Clip Implanted:Qty: 2 on 06/03/2020 by Janis Hatch DO at OR [facility] Clip N/A: Colon 04/21/2022 [facility]-F-26-2 35-C-R / / [id number] documented as of this encounter Advance Directives Documents on File Type Date Recorded Patient Sound Tester 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
--- OUTSIDE RECORDS SUMMARY | 2023-05-10 20:40 | External Medical Summary | Summary of Care ---
Author Name Unknown Organization [facility] Address [place] [address] Care Team Providers Care Nick Setter Name Role Phone Vanita Dunn MD Primary Care Provid er Reason for Visit * Reason Onset Date Comments Advice 04/14/2021 Encounter Details Date Type Department Care Team Description 04/14/2021 Telephone [facility] [address] [place] [address] Vanita Dunn MD [address] [place] [address] Advice Allergies Active Allergy Reactions [...] 120 Vial 11 10/02/2019 Active nystatin (NYSTOP) 991383 UNIT/GM powder Apply topically to affected area [...] 60 Each 3 07/27/2020 Active Dexcom G6 Brushing Machine Operator Device Use as directed. To [...] Information Patient taking differently: 20 mg Oral [id number], (No instructions reported), Informant: Pharmacy, Reported on [...] Strip 3 10/29/2020 Active OneTouch Delica Plus Gjjuhh03K TESTING once daily 100 Each 3 10/29/2020 [...] Active Additional Information Patient taking differently: 2 [place] Nasal DAILY PRN, Congestion, Informant: Pharmacy, Reported [...] than 7.0% ([facility]) inject 28 units under skin [...] pain 01/24/2012 01/17/2017 Genetic Sleep Disorder Research Other*[id number] 05/13/2011 04/07/2016 Obstructive sleep apnea 01/18/2011 12/27/19 [...] Telephone Encounter - Michaelle Lindquist LPN - 04/15/2021 3:03 PM EDT Spoke with pt she is aware of Dr Dunn's message pt states she has had BM's after talking to the nurse yesterday. * Telephone Encounter - Vanita Dunn MD [...] patient due to change in insurance Connie Arguello, RN * Telephone Encounter - Josselin Gaspar [...] Team Description 04/16/2021 Office Visit Podiatry Prakash Martino, [place] [address] [place] [address] 04/29/2021 Telemedicine Palliative Medicine Esperanza Painter MD [address] [place] [address] 04/29/2021 Appointment Radiology 05/11/2021 Office Visit Gastroenterology Sergei Sanchez P, DO [address] [place], [place] [address] 05/14/2021 Laboratory Laboratory Johanna Bojorquez [facility] 200 [place] [address] [phone] 05/21/2021 Immunization/Injection Hematology Oncolog y Nurse, Med 4 [address] [place] [address] [phone] 06/02/2021 Office Visit Pharmacy [facility] [address] [place] [address] [phone] 06/07/2021 Nutrition Services Gastroenterology Melissa Omalley, [place] [address] [place] [address] [phone] 07/06/2021 Office Visit Hematology Oncology Tono Sanchez MD [address] [place] [address] [phone] 07/22/2021 Office Visit Pulmonary Reynaldo Marquez MD [address] [place] [address] [phone] 07/27/2021 Office Visit Gastroenterology Lyssa Stout CRNP [address] [facility] [place] [address] [phone] 09/09/2021 Imaging Radiology Health Maintenance Due Date [...] of this encounter Implants Implanted Type Area Product Coordinator Device Identifier Shelf Expiration Date Model / Serial / Lot Microtech Sure Clip Implanted:Qty: 2 on 06/03/2020 by Janis Hatch DO at OR [facility] Clip N/A: Colon 04/21/2022 [facility]-F-26-2 35-C-R / / [id number] documented as of this encounter Advance Directives Documents on File Type Date Recorded Patient Nursing Director 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 Agents on File Name Relationship Healthcare Agent Romainpa navya Communication Syed Bustos Spouse Emergency Contact
--- OUTSIDE RECORDS SUMMARY | 2023-05-10 20:41 | External Medical Summary ---
Author Name Unknown Address Unknown Organization K09:[facility] [place] [address] Laboratory Report Ordering Provider Test Date Status JACOB CORBETT 04/09/2021 16:07:40 Final Observation Date Value Abnormality Reference (Units ) Status SYNC LEUKOCYTES IN BLOOD BY AUTOMATED COUNT 04/09/2021 16:07:40 3.04 Below low normal 4.00-10.80 (K/uL) Final Segs 04/09/2021 16:07:40 56.2 40.0-75.0 (%) Final Lymphs % 04/09/2021 16:07:40 23.7 18.0-42.0 (%) Final Monos 04/09/2021 16:07:40 13.5 Above high normal 1.0-11.0 (%) Final Eosinophils 04/09/2021 16:07:40 5.6 0.0-6.0 (%) Final Basos 04/09/2021 16:07:40 1.0 0.0-2.0 (%) Final Absolute Segs 04/09/2021 16:07:40 1.71 Below low normal 1.80-7.70 (K/uL) Final Lymphs, absolute 04/09/2021 16:07:40 0.72 Below low normal 1.00-4.80 (K/ul) Final Monos, Abs 04/09/2021 16:07:40 0.41 0.00-1.10 (K/uL) Final Eos, Abs 04/09/2021 16:07:40 0.17 0.00-0.70 (K/uL) Final Basos, Abs 04/09/2021 16:07:40 0.03 0.00-0.20 (K/uL) Final Performing Location [facility] [place] [address]
--- OUTSIDE RECORDS SUMMARY | 2023-05-10 20:41 | External Medical Summary | Summary of Care ---
Author Name Unknown Organization [facility] [place] [address] Care Team Providers Care Sales Promotion Coordinator Name Role Phone Vanita Dunn MD Primary Care Provid er Reason for Visit * Reason Onset Date Comments Follow Up 04/12/2021 Encounter Details Date Type Department Care Team Description 04/12/2021 Water Leak Repairer Telephone [facility] [address] [place] [address] Connie Arguello, RN [address] [place] [address] Follow Up Allergies Active Allergy Reactions Severity Noted Date Comments Adhesive Tape Itching 04/29/2020 Penicillins Rash 02/12/2008 Perflutren Protein A Microsph 2019 Definity-lower back pain documented as of this encounter (statuses as of 04/12/2021) Medications Medication Sig Dispensed Refills Start Date [...] 120 Vial 11 10/02/2019 Active nystatin (NYSTOP) 033676 UNIT/GM powder Apply topically to affected area [...] 60 Each 3 07/27/2020 Active Dexcom G6 Lead Applications Developer Device Use as directed. To test [...] Information Patient taking differently: 20 mg Oral [id number], (No instructions reported), Informant: Pharmacy, Reported on [...] Strip 3 10/29/2020 Active OneTouch Delica Plus [id number] TESTING once daily 100 Each 3 10/29/2020 [...] Active Additional Information Patient taking differently: 2 [place] Nasal DAILY PRN, Congestion, Informant: Pharmacy, Reported [...] [facility]) inject 28 units under skin at bedtime 30 mL 3 04/07/2021 Active documented as of this encounter (statuses as of 04/12/2021) Active Problems Problem Noted Date Lactic acidosis [...] as of this encounter (statuses as of 04/12/2021) Resolved Problems Problem Noted Date Resolved Date [...] pain 01/24/2012 01/17/2017 Genetic Sleep Disorder Research Other*[id number] 05/13/2011 04/07/2016 Obstructive sleep apnea 01/18/2011 12/27/19 [...] as of this encounter (statuses as of 04/12/2021) Immunizations Name Administration Dates Next Due COVID-19 [...] Telephone Encounter - Connie Arguello RN - 04/12/2021 1:58 PM EDT Confirmed that patient now is covered by [facility] Federal Employee program effective 09/11/20 &[facility] Medicaid, therefore patient no longer qualifies for [facility] CM, will close at this time, reviewed case with electrical and instrumentation manager Che Arguello, RN documented in this encounter Plan of Treatment Upcoming Encounters Date Type Specialty Care Team Description 04/14/2021 Hem/Onc Treatment Hematology Oncology Maryellen, Chair 9 Hem Onc [facility] [address] [place] [address] [phone] 04/16/2021 Office Visit Podiatry Prakash Martino, SIRENA [address] [place] [address] [phone] 04/29/2021 Telemedicine Palliative Medicine Esperanza Painter MD [address] [place] [address] 04/29/2021 Appointment Radiology 05/11/2021 Office Visit Gastroenterology Sergei Sanchez P, DO [address] [place] [address] 05/21/2021 Immunization/Injection Hematology Oncolog y Nurse, Med 4 [address] [place] [address] [phone] 06/02/2021 Office Visit Pharmacy [facility] [address] [place], [place] [id number] 06/07/2021 Nutrition Services Gastroenterology Melissa Omalley RDN [address] [facility] [address] [place] [address] [phone] 07/06/2021 Office Visit Hematology Oncology Tono Sanchez MD [address] [place] [address] [phone] 07/27/2021 Office Visit Gastroenterology Lyssa Stout CRNP [address] [place] [address] [phone] 09/09/2021 Imaging Radiology Health Maintenance Due Date [...] of this encounter Implants Implanted Type Area Rd Lab Technician Device Identifier Shelf Expiration Date Model / Serial / Lot Microtech Sure Clip Implanted:Qty: 2 on 06/03/2020 by Janis Hatch DO at OR [facility] Clip N/A: Colon 04/21/2022 ROC-F-26-2 35-C-R / / [id number] documented as of this encounter Advance Directives Documents on File Type Date Recorded Patient Studio Engineer 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
--- OUTSIDE RECORDS SUMMARY | 2023-05-10 20:41 | External Medical Summary ---
Author Name Unknown Address Unknown Organization K01:LABORATORY C - [address] [place] [address] Laboratory Report Ordering Provider Test Date Status JACOB CORBETT 04/09/2021 16:07:41 Final Observation Date Value Abnormality Reference (Units ) Status Ferritin 04/09/2021 16:07:41 30 13-150 (ng /mL) Final Performing Location [facility] - [address] [place] [address]
--- OUTSIDE RECORDS SUMMARY | 2023-05-10 20:41 | External Medical Summary ---
Author Name Unknown Address Unknown Organization K09:[facility] [place] [address] [place] [address] Laboratory Report Ordering Provider Test Date Status JACOB CORBETT 04/09/2021 16:07:40 Final Observation Date Value Abnormality Reference (Units ) Status Nucleated erythrocytes/100 leukocytes [Ratio] in Blood by Automated count 04/09/2021 16:07:40 Final Anisocytosis [Presence] in Blood by Light microscopy 04/09/2021 16:07:40 Slight Abnormal None Seen Final Performing Location [facility] [place] [address] [address] [address]
--- OUTSIDE RECORDS SUMMARY | 2023-05-10 20:41 | External Medical Summary ---
Author Name Unknown Address Unknown Organization K09:[facility] [place] [address] [address] Laboratory Report Ordering Provider Test Date Status JACOB CORBETT 04/09/2021 16:07:40 Final Observation Date Value Abnormality Reference (Units ) Status WBC, Total 04/09/2021 16:07:40 3.04 Below low normal 4. 00-10.80 (K/uL) Final RBC 04/09/2021 16:07:40 2.82 Below low normal 3.8 5-5.15 (M/uL) Final Hemoglobin 04/09/2021 16:07:40 8.5 Below low normal 12 .0-15.3 (g/dL) Final HCT 04/09/2021 16:07:40 28.4 Below low normal 36. 0-45.2 (%) Final MCV 04/09/2021 16:07:40 100.7 Above high normal 81 .5-97.5 (fL) Final MCH 04/09/2021 16:07:40 30.1 27.0-34.0 (pg) Final MCHC 04/09/2021 16:07:40 29.9 Below low normal 32. 0-36.0 (g/dL) Final RDW 04/09/2021 16:07:40 19.2 Above high normal 11 .5-15.5 (%) Final Platelets 04/09/2021 16:07:40 93 Below low normal 140 -400 (K/uL) Final MPV 04/09/2021 16:07:40 13.4 Above high normal 6. 6-11.1 (fL) Final Performing Location [facility]ORY [facility] [place] [address]
--- OUTSIDE RECORDS SUMMARY | 2023-05-10 20:41 | External Medical Summary | Summary of Care ---
Author Name Unknown Organization [facility] Address [place] [address] Care Team Providers Care Senior Application Software Engineer Name Role Phone Vanita Dunn MD Primary Care Provid er Reason for Visit * Reason Comments Procedure port flush Encounter Details Date Type Department Care Team Description 04/09/2021 Immunization/In jection Hematology/Oncology Treatment, [place] [address] [place] [address] Nurse, Med [address] [place] [id number] Iron deficiency anemia due to chronic blood loss* Allergies Active Allergy Reactions Severity Noted Date Comments Adhesive Tape Itching 04/29/2020 Penicillins Rash 02/12/2008 Perflutren Protein A Microsph 2019 Definity-lower back pain documented as of this encounter (statuses as of 04/09/2021) Medications Medication Sig Dispensed Refills Start Date [...] 120 Vial 11 10/02/2019 Active nystatin (NYSTOP) 581224 UNIT/GM powder Apply topically to affected area [...] 60 Each 3 07/27/2020 Active Dexcom G6 Huller Operator Device Use as directed. To test [...] Information Patient taking differently: 20 mg Oral [id number], (No instructions reported), Informant: Pharmacy, Reported on [...] Strip 3 10/29/2020 Active OneTouch Delica Plus Gexsff68G TESTING once daily 100 Each 3 10/29/2020 [...] than 7.0% ([facility]) Use to inject insulin four times daily; E11.42 400 Each 3 12/05/2020 Active Fluticasone Propionate 50 MCG/ACT Nasal Suspension (Flonase)Indication s:Sinus congestion USE 2 SPRAYS IN EACH NOSTRIL ONCE DAILY as directed 16 g 5 12/23/2020 Active Additional Information Patient taking differently: 2 [place] Nasal DAILY PRN, Congestion, Informant: Pharmacy, Reported [...] as of this encounter (statuses as of 04/09/2021) Active Problems Problem Noted Date Lactic acidosis [...] as of this encounter (statuses as of 04/09/2021) Resolved Problems Problem Noted Date Resolved Date [...] pain 01/24/2012 01/17/2017 Genetic Sleep Disorder Research Other*[id number] 05/13/2011 04/07/2016 Obstructive sleep apnea 01/18/2011 12/27/19 [...] as of this encounter (statuses as of 04/09/2021) Immunizations Name Administration Dates Next Due COVID-19 [...] * Dulce Montes De Oca RN - 04/09/2021 3:56 PM EDT VAD (Venous Access Device) accessed with #20G 3/4" without difficulty. Small amount blood return noted but unable to obtain ordered labs via port. VAD flushed with 10 ml NSS and Heparin 5 ml (100 units/ml). Mason needle removed intact. Pt sent to lab for blood draw, monoferric infusion scheduled per notation. Patient tolerated treatment well and was discharged in stable condition. documented in this encounter Plan of Treatment Upcoming Encounters Date Type Specialty Care Team Description 04/14/2021 Hem/Onc Treatment Hematology Oncology Maryellen, Chair 9 Hem Onc [facility] [address] [place] [address] [phone] 04/16/2021 Office Visit Podiatry Prakash Martino, SIRENA [address] [place] [address] [phone] 04/29/2021 Telemedicine Palliative Medicine Esperanza Painter MD [address] [place] [address] 04/29/2021 Appointment Radiology 05/11/2021 Office Visit Gastroenterology Sergei Sanchez P, DO [address] [place] [address] 05/21/2021 Immunization/Injection Hematology Oncolog y Nurse, Med 4 [address] [place] [address] [phone] 06/02/2021 Office Visit Pharmacy [facility] [address] [place], [place] [phone] 06/07/2021 Nutrition Services Gastroenterology Melissa Omalley RDN [address] [facility] [address] [place], [place] [address] 07/06/2021 Office Visit Hematology Oncology Tono Sanchez MD 200 [facility] [place] [address] [phone] 07/27/2021 Office Visit Gastroenterology Lyssa Stout CRNP [address] [place] [address] [phone] 09/09/2021 Imaging Radiology Health Maintenance Due Date [...] of this encounter Implants Implanted Type Area Construction Rep Device Identifier Shelf Expiration Date Model / Serial / Lot Microtech Sure Clip Implanted:Qty: 2 on 06/03/2020 by Janis Hatch DO at OR [facility] Clip N/A: Colon 04/21/2022 [facility]-F-26-2 35-C-R / / [id number] documented as of this encounter Visit Diagnoses [...] IV Lock, PRN Other, IV Flush, Starting Mon04/09/21 at 1522, Until 04/10/21 at 1521, For 24 hours, Do not flush if lock, PICC, or central line not in place; IV infusing or unable to flush., Given 04/09/2021 3:32 PM EDT 500 Units sodium chloride 0.9% flush/inj 10 mL 10 mL, IV Push, PRN Other, IV Flush, Starting 04/09/21 at 1522, Until 04/10/21 at 1521, For 24 hours, Do not flush if lock, PICC, or central line not in place; IV infusing or unable to flush., Given 04/09/2021 3:32 PM EDT 10 mL documented in this encounter Advance Directives Documents on File Type Date Recorded Patient Ent Physician 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 Agents on File Name Relationship Healthcare Agent [facility] Communication Syed Bustos Spouse Emergency Contact
--- OUTSIDE RECORDS SUMMARY | 2023-05-10 20:41 | External Medical Summary ---
Author Name Unknown Address Unknown Organization K01:LABORATORY [facility] - [address] [place] [address] Laboratory Report Ordering Provider Test Date Status JACOB CORBETT 04/09/2021 16:07:41 Final Observation Date Value Abnormality Reference (Units ) Status Iron 04/09/2021 16:07:41 82 33-151 (ug /dL) Final Iron-binding capacity 04/09/2021 16:07:41 301 250-425 (ug/dL) Final Transferrin Sat % 04/09/2021 16:07:41 27 15 -55 (%) Final Performing Location LABORATORY [facility] - [address] [place] [address]
--- OUTSIDE RECORDS SUMMARY | 2023-05-10 20:42 | External Medical Summary | Summary of Care ---
Author Name Unknown Organization [facility] Address [place] [address] Care Team Providers Care Program Services Planner Name Role Phone Vanita Dunn MD Primary Care Provid er Reason for Visit * Reason Comments Dosage Adjustment Via Phone (anticoag Cl inic) Diabetes Follow-Up Encounter Details Date Type Department Care Team Description 04/08/2021 Pharmacy Pharmacy, [place] [address] [place] [address] [facility] [address] [place] [address] [phone] Type 2 diabetes mellitus with hemoglobin A1c goal of less than 7.0% ([facility])* Allergies Active Allergy Reactions Severity Noted Date Comments Adhesive Tape Itching 04/29/2020 Penicillins Rash 02/12/2008 Perflutren Protein A Microsph 2019 Definity-lower back pain documented as of this encounter (statuses as of 04/08/2021) Medications Medication Sig Dispensed Refills Start Date [...] 120 Vial 11 10/02/2019 Active nystatin (NYSTOP) 693124 UNIT/GM powder Apply topically to affected area [...] 60 Each 3 07/27/2020 Active Dexcom G6 Circular Knife Cutter Machine Device Use as directed. To test [...] Information Patient taking differently: 20 mg Oral [id number], (No instructions reported), Informant: Pharmacy, Reported on [...] Strip 3 10/29/2020 Active OneTouch Delica Plus Htyajl13D TESTING once daily 100 Each 3 10/29/2020 [...] Active Additional Information Patient taking differently: 2 [place] Nasal DAILY PRN, Congestion, Informant: Pharmacy, Reported [...] as of this encounter (statuses as of 04/08/2021) Active Problems Problem Noted Date Lactic acidosis [...] as of this encounter (statuses as of 04/08/2021) Resolved Problems Problem Noted Date Resolved Date [...] pain 01/24/2012 01/17/2017 Genetic Sleep Disorder Research Other*[id number] 05/13/2011 04/07/2016 Obstructive sleep apnea 01/18/2011 12/27/19 [...] as of this encounter (statuses as of 04/08/2021) Immunizations Name Administration Dates Next Due COVID-19 [...] encounter Progress Notes * Indira Hudson, [facility] - 04/08/2021 12:19 PM EDT Patient returned call. Spoke with patient and . They confirmed they are taking Novolog 32 units before breakfast, 36 units before lunch, and 36 units before supper PLUS chart below. BG Units Before Meal If not planning to eat and at bedtime add: 80 to 150 6 units 0 units 151 to 200 8 units 2 units 201 to 250 10 units 4 units 251 to 300 12 units 6 units 301 to 350 14 units 8 units 351+ 16 units 10 units Patient doing well with this so far so will continue at this time and reevaluate at next appt. Willcontinue with plan per yesterday's visit. Patient to contact clinic with any issues. Will follow-up as previously scheduled Indira Hudson RPh, Pharm D, F[facility] Clinical Pharmacist 04/08/21 12:19 PM * Indira Hudson RPh - 04/08/2021 12:04 PM EDT F/U call- Trying to confirm doses of Novolog taking and what chart patient using/how patient is using chart Patient Phone Numbers Unable to reach patient. At visit yesterday, patient was agreeable to bring in chart or take picture of chart so clinician can confirm chart patient following. Will follow-up as previously scheduled or if patient returns call. Indira Hudson RPh, Pharm D, PB Clinical Pharmacist 04/07/21 4:09 PM documented in this encounter Plan of Treatment Upcoming Encounters Date Type Specialty Care Team Description 04/09/2021 Immunization/Injection Hematology Oncolog y Nurse, Med 4 [address] [facility] [place] [address] [phone] 04/16/2021 Office Visit Podiatry Prakash Martino DPM [address] [place] [address] 04/29/2021 Telemedicine Palliative Medicine Esperanza Painter MD [address] [place] [address] 04/29/2021 Appointment Radiology 05/11/2021 Office Visit Gastroenterology Sergei Sanchez P, DO [address] [place] [address] 06/02/2021 Office Visit Pharmacy [facility] [address] [place] [address] [phone] 06/07/2021 Nutrition Services Gastroenterology Melissa Omalley, SAMANTHA [address] [place] [address] [place] [address] [phone] 07/06/2021 Office Visit Hematology Oncology Tono Sanchez MD [address] [place] [address] [phone] 07/27/2021 Office Visit Gastroenterology Lyssa Stout CRNP [address] [place] [address] [phone] 09/09/2021 Imaging Radiology Health Maintenance Due Date [...] of this encounter Implants Implanted Type Area Device Test Engineer Device Identifier Shelf Expiration Date Model / Serial / Lot Microtech Sure Clip Implanted:Qty: 2 on 06/03/2020 by Janis Hatch DO at OR [facility] Clip N/A: Colon 04/21/2022 [facility]-F-26-2 35-C-R / / [id number] documented as of this encounter Visit Diagnoses Diagnosis Type 2 diabetes mellitus with hemoglobin A1c goal of less than 7.0% ([facility])- Primary documented in this encounter Advance Directives Documents on File Type Date Recorded Patient Occupational Therapy Director 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 Agents on File Name Relationship Healthcare Agent Relationsdc p Communication Syed Bustos Spouse Emergency Contact
--- OUTSIDE RECORDS SUMMARY | 2023-05-10 20:42 | External Medical Summary ---
Author Name Unknown Address Unknown Organization K01:LABORATORY [facility] [place] [address] [place] [address] Laboratory Report Ordering Provider Test Date Status COLLINS PANG 04/08/2021 16:54:00 Final Observation Date Value Abnormality Reference (Units ) Status Fibrin D-dimer FEU [Mass/volume] in Platelet poor plasma by Immunoassay 04/08/2021 16:54:00 0.73 Above high normal <0.50 (ug/mL FEU) Final Performing Location LAB[facility] [place] [address] [place] [address]
--- OUTSIDE RECORDS SUMMARY | 2023-05-10 20:42 | External Medical Summary ---
Author Name Unknown Address Unknown Organization : Laboratory Report Ordering Provider Test Date Status NO,UNKNOWN 04/08/2021 18:00:27 Final Observation Date Value Abnormality Reference (Units ) Status Glucose Point of Care 04/08/2021 18:00:27 95 70-120 (mg/dL) Final Performing Location
--- OUTSIDE RECORDS SUMMARY | 2023-05-10 20:42 | External Medical Summary | Summary of Care ---
Author Name Unknown Organization [facility] Address [place] [address] Care Team Providers Care Customer Service Representative Name Role Phone Vanita Dunn MD Primary Care Provid er Reason for Visit * Reason Comments Dosage Adjustment In Person (Anticoag Cl inic) Diabetes Follow-Up Encounter Details Date Type Department Care Team Description 04/07/2021 Office Visit Pharmacy, [place] [address] [place] [address] [facility] [address] [place] [address] [phone] Type 2 diabetes mellitus with hemoglobin A1c goal of less than 7.0% ([facility])* Allergies Active Allergy Reactions Severity Noted Date Comments Adhesive Tape Itching 04/29/2020 Penicillins Rash 02/12/2008 Perflutren Protein A Microsph 2019 Definity-lower back pain documented as of this encounter (statuses as of 04/07/2021) Medications Medication Sig Dispensed Refills Start Date [...] 120 Vial 11 10/02/2019 Active nystatin (NYSTOP) 267859 UNIT/GM powder Apply topically to affected area [...] 60 Each 3 07/27/2020 Active Dexcom G6 Generation Engineer Device Use as directed. To test [...] 09/14/2020 Active Nadolol 20 MG Oral Tablet (CORGARD)Indicati ons:HTN, goal below 140/90 One daily 90 Tab 1 09/19/2020 Active Additional Information Patient taking differently: 20 mg Oral [id number], (No instructions reported), Informant: Pharmacy, Reported on 03/31/2021 Lidocaine-Priloca ine 2.5-2.5 % External Cream (Emla)Indications :Iron deficiency anemia due to chronic blood loss,Pancytopenia (HCC) Apply topically to affected area as needed for Other (for port). APPLY TO SKIN OVER MEDIPORT & COVER 1HR PRIOR TO ACCESSING. 30 g 3 10/09/2020 Active OneTouch Verio In Vitro Strip (Glucose Blood) TESTING once daily 100 Strip 3 10/29/2020 Active OneTouch Delica Plus [id number] TESTING once daily 100 Each 3 10/29/2020 [...] goal of less than 7.0% ([facility]) Use to inject insulin four times daily; E11.42 400 Each 3 12/05/2020 Active Fluticasone Propionate 50 MCG/ACT Nasal Suspension (Flonase)Indicati ons:Sinus congestion USE 2 SPRAYS IN EACH NOSTRIL ONCE DAILY as directed 16 g 5 12/23/2020 Active Additional Information Patient taking differently: 2 [place] Nasal DAILY PRN, Congestion, Informant: Pharmacy, Reported [...] Active traMADol HCl 50 MG Oral Tablet (Ultram)Indicatio ns:Abdominal pain, left lower quadrant Take 1 Tab by mouth every 12 hours as needed for Pain, Moderate for up to 30 days. 60 Tab 0 03/29/2021 04/28/20 21 Active Potassium Chloride Selena ER 10 MEQ [...] at bedtime 30 mL 3 04/07/2021 Active Lantus SoloStar 100 UNIT/ML Subcutaneous Solution Pen-injector (Insulin Glargine)Indicati ons:Type 2 diabetes mellitus with hemoglobin A1c goal of less than 7.0% (HCC) inject 32 units under skin at bedtime 30 mL 3 03/24/2021 04/07/20 21 Discontinued documented as of this encounter (statuses as of 04/07/2021) Active Problems Problem Noted Date Lactic acidosis [...] as of this encounter (statuses as of 04/07/2021) Resolved Problems Problem Noted Date Resolved Date [...] pain 01/24/2012 01/17/2017 Genetic Sleep Disorder Research Other*[id number] 05/13/2011 04/07/2016 Obstructive sleep apnea 01/18/2011 12/27/19 [...] as of this encounter (statuses as of 04/07/2021) Immunizations Name Administration Dates Next Due COVID-19 [...] this encounter Progress Notes * Indira Hudson RP - 04/07/2021 4:09 PM EDT Per JEYSON, "I believe she was discharged on Lantus 32 units Novolog 6 units with meals plus the sliding scale 2:50>150." Will need to contact patient at home to confirm again what they are doing with insulin and chart and how they are using it. Patient Phone Numbers VM not set up. Will follow-up in 1 day Indira Hudson RPh, Pharm D, BCACP Clinical Pharmacist 04/07/21 4:09 PM * Indira Hudson RPh - 04/07/2021 2:50 PM EDT Images from the original note were not included. Medication Therapy Disease Management [facility] - Diabetes Management Progress Note Shaina Bustos, identified by name and date of , is a 65 year old female being seen for diabetesmanagement/education. Patient presents for return diabetic visit. DIABETES: Current diabetic medications: INCREASE: Novolog, Inject 32 units before breakfast, 36 units before lunch, and 36 units before supper- reports also has a scale- unable to confirm but likely Novolog SS 2:50>150 ACHS per JEYSON when admitted (1:25 over 150). INCREASE: Lantus pen, 30 units daily- taking 32 units Metformin 1000mg, 1 tablet twice a day INCREASE:Trulicity 4.5mg SQ weekly GFR >90 as of 11/19/20 Lifestyle: Diet: unchanged Glucose Review/SMBG: Dexcom Clarity [...] ESTIMATED GLOMERULAR FILTRATION RATE - [facility] >90.0 04/05/2021 01:42 PM ESTIMATED GLOMERULAR FILTRATION RATE - [facility] >90.0 04/05/2021 01:42 PM ESTIMATED GLOMERULAR FILTRATION RATE - [facility] >90.0 04/03/2021 05:05 AM ESTIMATED GLOMERULAR FILTRATION RATE - [facility] [...] Component Value Date/Time CREATININE - [facility] 0.6 04/05/2021 01:42 PM CREATININE - [facility] 0.6 04/05/2021 01:42 PM CREATININE - [facility] 0.5 04/03/2021 05:05 AM CREATININE - [facility] 0.6 09/24/2020 05:16 PM CREATININE - [facility] 0.6 09/23/2020 02:36 PM CREATININE - [facility] 0.7 08/21/2020 04:35 PM No results found for: HEMOGLOBIN A1C POCT Lab Results Component Value Date/Time CREATININE - [facility] 0.6 04/05/2021 01:42 PM CREATININE - [facility] 0.6 04/05/2021 01:42 PM CREATININE - [facility] 0.5 04/03/2021 05:05 AM CREATININE - [facility] 0.6 09/24/2020 05:16 [...] LAB 0.91 07/11/2018 HYPERTENSION: Patient on ACEi/ARB: no, BP at goal BP Readings from Last 3 Encounters: 04/05/21 124/62 04/03/21 126/86 03/29/21 106/62 HYPERLIPIDEMIA: Patient is taking moderate or high intensity statin: yes HEALTH MAINTENANCE REVIEW: Health Maintenance Due Topic Date Due DIABETES-EYE EXAM 06/12/2019 Dexa Scan Never done Zoster Vaccines (3 of 3) 06/23/2020 COVID-19 Vaccine (2 - Moderna 2-dose series) 12/21/2020 ASSESSMENT & PLAN: ICD-10-CM 1. Type 2 diabetes mellitus with hemoglobin A1c goal of less than 7.0% ([facility]) E11.9 Presents with . BG Readings Reviewed Clarity download. Blood sugars improving. Patient using CF chart from whenadmitted. Believe it is 2:50>150 per PA-C when admitted (1:25 over 150). Unclear per discharge summary. Patient will bring in chart or take picture of chart to confirm and bring to next visit. Also sent message to PA-C Alberta Duque to confirm chart patient received on discharge. P atient is trending low overnight and between meals. Medications Reviewed current regimen, patient is adherent to regimen. Tolerating well. Diet, Exercise, Lifestyle Patient reports doing well since home from hospital. Will decrease Lantus at this time. Patient to contact clinic with any issues. Patient is agreeable to SMBG 4 time(s) daily. Patient aware to contact clinic if any hypoglycemia before next visit. MEDICATION CHANGES: Yes see below Diabetic Medications: Novolog, Inject 32 units before breakfast, 36 units before lunch, and 36 units before supper- reports also has a scale- unable to confirm but likely Novolog SS 2:50>150 ACHS per PA-C when admitted(1:25 over 150). DECREASE: Lantus pen, 28 units daily Metformin 1000mg, 1 tablet twice a day Trulicity 4.5mg SQ weekly GFR >90 as of 04/05/21 HEALTH MAINTENANCE INTERVENTIONS: Eye Exam:due- pt plans to make an appt with eye doctor soon FOLLOW UP: Return to clinic in 8 weeks Next Office Visit: 06/02/2021 Scheduled Provider(s): [facility] Indira Hudson [facility] Clinical Pharmacist - [employer] Product Development Manager Medication Therapy Management Clinic 04/07/2021, 2:50 PM documented in this encounter Plan of Treatment Upcoming Encounters Date Type Specialty Care Team Description 04/08/2021 Pharmacy [facility] [address] [place] [address] 04/09/2021 Immunization/Injection Hematology Oncolog y Nurse, Med [address] [place] [address] [phone] 04/16/2021 Office Visit Podiatry Prakash Martino DPM [address] [place] [address] [phone] 04/29/2021 Telemedicine Palliative Medicine Esperanza Painter MD [address] [place] [address] 04/29/2021 Appointment Radiology 05/11/2021 Office Visit Gastroenterology eSrgei Sanchez P, DO [address] [place] [address] [phone] 06/02/2021 Office Visit Pharmacy [facility] [address], [place] [id number] 06/07/2021 Nutrition Services Gastroenterology Melissa Omalley RDN [address] [facility] [address] [place] [address] [phone] 07/06/2021 Office Visit Hematology Oncology Tono Sanchez MD [address] [place] [address] [phone] 07/27/2021 Office Visit Gastroenterology Lyssa Stout, [facility] [address] [place] [address] [phone] 09/09/2021 Imaging Radiology Health Maintenance Due Date [...] of this encounter Implants Implanted Type Area Automotive General Sales Manager Device Identifier Shelf Expiration Date Model / Serial / Lot Microtech Sure Clip Implanted:Qty: 2 on 06/03/2020 by Janis Hatch DO at OR [facility] Clip N/A: Colon 04/21/2022 [facility]-F-26-2 35-C-R / / [id number] documented as of this encounter Visit Diagnoses Diagnosis Type 2 diabetes mellitus with hemoglobin A1c goal of less than 7.0% (HCC)- Primary documented in this encounter Advance Directives Documents on File Type Date Recorded Patient Director Of Housing 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 Agents on File Name Relationship Healthcare Agent [facility] p Communication Syed Bustos Spouse Emergency Contact
--- OUTSIDE RECORDS SUMMARY | 2023-05-10 20:42 | External Medical Summary | Summary of Care ---
Author Name Unknown Organization [facility] Address [place] [address] Care Team Providers Care Hide Grader Name Role Phone Vanita Dunn MD Primary Care Provid er Reason for Visit * Reason Comments Dosage Adjustment Via Phone (anticoag Cl inic) Diabetes Follow-Up Encounter Details Date Type Department Care Team Description 04/08/2021 Pharmacy Pharmacy, [place] [address] [place] [address] [facility] [address] [place] [address] [phone] Type 2 diabetes mellitus with hemoglobin A1c goal of less than 7.0% ([facility])* Allergies Active Allergy Reactions Severity Noted Date [...] 120 Vial 11 10/02/2019 Active nystatin (NYSTOP) 647900 UNIT/GM powder Apply topically to affected area [...] Each 3 07/27/2020 Active Dexcom G6 Application Chemist Device Use as directed. To test [...] Information Patient taking differently: 20 mg Oral [id number], (No instructions reported), Informant: Pharmacy, Reported on [...] Strip 3 10/29/2020 Active OneTouch Delica Plus [id number] TESTING once daily 100 Each 3 10/29/2020 [...] Active Additional Information Patient taking differently: 2 [place] Nasal DAILY PRN, Congestion, Informant: Pharmacy, Reported [...] pain 01/24/2012 01/17/2017 Genetic Sleep Disorder Research Other*[id number] 05/13/2011 04/07/2016 Obstructive sleep apnea 01/18/2011 12/27/19 [...] Progress Notes * Indira Hudson, [facility] - 04/08/2021 12:04 PM EDT F/U call- [...] or if patient returns call. Indira Hudson [facility], Pharm D, BCACP Clinical Pharmacist 04/07/21 4:09 PM documented in this encounter Plan of Treatment Upcoming Encounters Date Type Specialty Care Team Description 04/09/2021 Immunization/Injection Hematology Oncolog y Nurse, Med [address] [place] [address] [phone] 04/16/2021 Office Visit Podiatry Prakash Martino DPM [address] [place] [address] 04/29/2021 Telemedicine Palliative Medicine Esperanza Painter MD [address] [place] [address] 04/29/2021 Appointment Radiology 05/11/2021 Office Visit Gastroenterology Sergei Sanchez P, DO [address] [place] [address] 06/02/2021 Office Visit Pharmacy [place] [facility] [address] [place] [address] 06/07/2021 Nutrition Services Gastroenterology Melissa Omalley RDN [address] [facility] [address] [place] [address] 07/06/2021 Office Visit Hematology Oncology Tono Sanchez MD [address] [place] [address] [phone] 07/27/2021 Office Visit Gastroenterology Lyssa Stout CRNP [address] [facility] [place] [address] [phone] 09/09/2021 Imaging Radiology Health Maintenance Due Date [...] of this encounter Implants Implanted Type Area Recreational Resort Manager Device Identifier Shelf Expiration Date Model / Serial / Lot Microtech Sure Clip Implanted:Qty: 2 on 06/03/2020 by Hatch, Marten B, DO at OR [facility] Clip N/A: Colon 04/21/2022 [facility]-F-26-2 35-C-R / / [id number] documented as of this encounter Visit Diagnoses Diagnosis Type 2 diabetes mellitus with hemoglobin A1c goal of less than 7.0% (HCC)- Primary documented in this encounter Advance Directives Documents on File Type Date Recorded Patient Technology Officer 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 Agent [facility] p Communication Syed Fariasel Spouse Emergency Contact
--- OUTSIDE RECORDS SUMMARY | 2023-05-10 20:42 | External Medical Summary ---
Author Name Unknown Address Unknown Organization [id number]:[facility] [place] [address] [facility] [place] [address] Laboratory Report Ordering Provider Test Date Status COLLINS PANG 04/08/2021 16:54:00 Final Observation Date Value Abnormality Reference (Units ) Status SYNC LEUKOCYTES IN BLOOD BY AUTOMATED COUNT 04/08/2021 16:54:00 3.17 Below low normal 4.00-10.80 (K/uL) Final Segs 04/08/2021 16:54:00 60.0 40.0-75.0 (%) Final Lymphs % 04/08/2021 16:54:00 22.1 18.0-42.0 (%) Final Monos 04/08/2021 16:54:00 9.5 1.0-11.0 (%) Final Eosinophils 04/08/2021 16:54:00 6.9 Above high normal 0.0-6.0 (%) Final Basos 04/08/2021 16:54:00 0.9 0.0-2.0 (%) Final Immature Granulocyte, Percent 04/08/2021 16:54:00 0.6 0.0-2.0 (%) Final Absolute Segs 04/08/2021 16:54:00 1.90 1.80-7.70 (K/uL) Final Lymphs, absolute 04/08/2021 16:54:00 0.70 Below low normal 1.00-4.80 (K/ul) Final Monos, Abs 04/08/2021 16:54:00 0.30 0.00-1.10 (K/uL) Final Eos, Abs 04/08/2021 16:54:00 0.22 0.00-0.70 (K/uL) Final Basos, Abs 04/08/2021 16:54:00 0.03 0.00-0.20 (K/uL) Final Immature Granulocytes, Number 04/08/2021 16:54:00 0.02 0.00-0.20 (K/uL) Final Performing Location [facility] [place] - [facility] [place] [address]
--- OUTSIDE RECORDS SUMMARY | 2023-05-10 20:42 | External Medical Summary ---
Author Name Unknown Address Unknown Organization [id number]:[facility] [place] - [address] [place] [address] Laboratory Report Ordering Provider Test Date Status POLYCOLLINS FERRARI 04/08/2021 16:54:00 Final Observation Date Value Abnormality Reference (Units ) Status Troponin T 04/08/2021 16:54:00 11 <=14 (ng/ L) Final Performing Location [facility] - [address] [place] [address]
--- OUTSIDE RECORDS SUMMARY | 2023-05-10 20:42 | External Medical Summary ---
Author Name Unknown Address Unknown Organization [id number]:[facility] [place] [address] [facility] [address] [place] [address] Laboratory Report Ordering Provider Test Date Status COLLINS PANG 04/08/2021 16:54:00 Final Observation Date Value Abnormality Reference (Units ) Status BUN 04/08/2021 16:54:00 8 6-20 (mg/dL) Final Creatinine 04/08/2021 16:54:00 0.5 0.5-1.0 (mg/dL) Final Glomerular filtration rate/1.73 sq M.predicted [Volume Rate/Area] in Serum, Plasma or Blood by Creatinine-based formula (CKD-EPI) 04/08/2021 16:54:00 >90.0 >=60.0 (mL/min) Final Performing Location [facility] [place] [address] [place] [address]
--- OUTSIDE RECORDS SUMMARY | 2023-05-10 20:42 | External Medical Summary ---
Author Name Unknown Address Unknown Organization K01[place] [place] [address] [place] [address] Laboratory Report Ordering Provider Test Date Status COLLINS PANG 04/08/2021 16:54:00 Final Observation Date Value Abnormality Reference (Units ) Status WBC, Total 04/08/2021 16:54:00 3.17 Below low normal 4.00-10.80 (K/uL) Final RBC 04/08/2021 16:54:00 2.90 Below low normal 3.85-5.15 (M/uL) Final Hemoglobin 04/08/2021 16:54:00 8.7 Below low normal 12.0-15.3 (g/dL) Final HCT 04/08/2021 16:54:00 30.6 Below low normal 36.0-45.2 (%) Final MCV 04/08/2021 16:54:00 105.5 Above high normal 81.5-97.5 (fL) Final MCH 04/08/2021 16:54:00 30.0 27.0-34.0 (pg) Final MCHC 04/08/2021 16:54:00 28.4 Below low normal 32.0-36.0 (g/dL) Final RDW 04/08/2021 16:54:00 18.8 Above high normal 11.5-15.5 (%) Final MPV 04/08/2021 16:54:00 13.6 Above high normal 6.6-11.1 (fL) Final Nucleated erythrocytes/100 leukocytes [Ratio] in Blood by Automated count 04/08/2021 16:54:00 0 <=0 (/100 WBCs) Final Platelets 04/08/2021 16:54:00 87 Below low normal 140-400 (K/uL) Final Performing Location [facility] [place] [address] [place] [address]
--- OUTSIDE RECORDS SUMMARY | 2023-05-10 20:43 | External Medical Summary | Summary of Care ---
Author Name Unknown Organization [facility] Address [place] [address] Care Team Providers Care Lobster Man Name Role Phone Vanita Dunn MD Primary Care Provid er Reason for Visit * Reason Onset Date Comments Test Results 04/07/2021 Encounter Details Date Type Department Care Team Description 04/07/2021 Telephone [facility] [address] [place] [address] Brianne Pal PA-C [address] [place] [address] Test Results Allergies Active Allergy Reactions Severity [...] 120 Vial 11 10/02/2019 Active nystatin (NYSTOP) 569563 UNIT/GM powder Apply topically to affected area [...] Each 3 07/27/2020 Active Dexcom G6 Technical Architect Device Use as directed. To test [...] Information Patient taking differently: 20 mg Oral [id number], (No instructions reported), Informant: Pharmacy, Reported on [...] Strip 3 10/29/2020 Active OneTouch Delica Plus [id number] TESTING once daily 100 Each 3 10/29/2020 [...] Active Additional Information Patient taking differently: 2 [place] Nasal DAILY PRN, Congestion, Informant: Pharmacy, Reported [...] mouth daily. 30 Tab 5 03/23/2021 Active Lantus SoloStar 100 UNIT/ML Subcutaneous Solution Pen-injector (Insulin Glargine)Indication s:Type 2 diabetes mellitus with hemoglobin A1c goal of less than 7.0% ([facility]) inject 32 units under skin at bedtime 30 mL 3 03/24/2021 Active Lactulose 20 GM/30ML Oral Solution (Constulose) [...] units Lunch and Supper. 0 03/24/2021 Active documented as of this encounter (statuses [...] pain 01/24/2012 01/17/2017 Genetic Sleep Disorder Research Other*[id number] 05/13/2011 04/07/2016 Obstructive sleep apnea 01/18/2011 12/27/19 [...] Telephone Encounter - Yanira Graves LPN - 04/07/2021 1:54 PM EDT ----- Message from Brianne Pal PA-C sent at 04/07/2021 12:21 PM EDT ----- Anemia did improve a little bit - going in the right direction. Thyroid is a bit hyperactive. Goingto see if I can do more testing on that with the blood we already have Brianne Pal PA-C Patient aware and verbalized understanding, will comply documented in this encounter Plan of Treatment Upcoming Encounters Date Type Specialty Care Team Description 04/07/2021 Office Visit Pharmacy [facility] [address] [place], [place] [id number] 04/09/2021 Immunization/Injection Hematology Oncolog y Nurse, Med [address] [place] [address] [phone] 04/16/2021 Office Visit Podiatry Prakash Martino DPM [address] [place] [address] 04/29/2021 Telemedicine Palliative Medicine Esperanza Painter MD [address] [place] [address] 04/29/2021 Appointment Radiology 05/11/2021 Office Visit Gastroenterology Sergei Sanchez P, DO [address] [place] [address] 06/07/2021 Nutrition Services [facility]astroenterology [facility]ley RDN [address] [facility] [address] [place] [address] [phone] 07/06/2021 Office Visit Hematology Oncology Tono Sanchez MD [address] [facility] [address] [phone] 07/27/2021 Office Visit Gastroenterology Lyssa Stout CRNP [address] [place] [address] [phone] 09/09/2021 Imaging Radiology Health Maintenance Due Date [...] this encounter Implants Implanted Type Area Marketing Traffic Coordinator Device Identifier Shelf Expiration Date Model / Serial / Lot Microtech Sure Clip Implanted:Qty: 2 on 06/03/2020 by Janis Hatch DO at OR [facility] Clip N/A: Colon 04/21/2022 [facility]-F-26-2 35-C-R / / [id number] documented as of this encounter Advance Directives Documents on File Type Date Recorded 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
--- OUTSIDE RECORDS SUMMARY | 2023-05-10 20:43 | External Medical Summary | Summary of Care ---
Author Name Unknown Organization [facility] Address [place] [address] Care Team Providers Care Property Valuer Name Role Phone Vanita Dunn MD Primary Care Provid er Reason for Visit * Reason Comments Dosage Adjustment In Person (Anticoag Cl inic) Diabetes Follow-Up Encounter Details Date Type Department Care Team Description 04/07/2021 Office Visit Pharmacy, [place] [address] [place] [address] [facility] [address] [place] [address] [phone] Type 2 diabetes mellitus with hemoglobin A1c goal of less than 7.0% ([facility])* Allergies Active Allergy Reactions [...] 120 Vial 11 10/02/2019 Active nystatin (NYSTOP) 551742 UNIT/GM powder Apply topically to affected area [...] 60 Each 3 07/27/2020 Active Dexcom G6 Autocad Technician Device Use as directed. To test [...] Information Patient taking differently: 20 mg Oral [id number], (No instructions reported), Informant: Pharmacy, Reported on [...] Strip 3 10/29/2020 Active OneTouch Delica Plus Zvcsfo41S TESTING once daily 100 Each 3 10/29/2020 [...] hemoglobin A1c goal of less than 7.0% ([facility]) Use to inject insulin four times daily; E11.42 400 Each 3 12/05/2020 Active Fluticasone Propionate 50 MCG/ACT Nasal Suspension (Flonase)Indicati ons:Sinus congestion USE 2 SPRAYS IN EACH NOSTRIL ONCE DAILY as directed 16 g 5 12/23/2020 Active Additional Information Patient taking differently: 2 [place] Nasal DAILY PRN, Congestion, Informant: Pharmacy, Reported [...] pain 01/24/2012 01/17/2017 Genetic Sleep Disorder Research Other*[id number] 05/13/2011 04/07/2016 Obstructive sleep apnea 01/18/2011 12/27/19 [...] this encounter Progress Notes * Indira Hudson, [facility] - 04/07/2021 2:50 PM EDT Images from [...] Novolog SS 2:50>150 ACHS per PA-C when admitted (1:25 over 150). INCREASE: Lantus [...] hemoglobin A1c goal of less than 7.0% ([facility]) E11.9 Presents with . BG Readings Reviewed [...] weeks Next Office Visit: 06/02/2021 Scheduled Provider(s): [facility] Shelleyjanette Hudson [facility] Clinical Pharmacist - Front End Technician Medication Therapy Management [facility] 04/07/2021, 2:50 PM documented in this encounter Plan of Treatment Upcoming Encounters Date Type Specialty Care Team Description 04/09/2021 Immunization/Injection Hematology Oncolog y Nurse, Med [address] [place] [address] [phone] 04/16/2021 Office Visit Podiatry Prakash Martino, SIRENA [address] [place] [address] [phone] 04/29/2021 Telemedicine Palliative Medicine Esperanza Painter MD [address] [place] [address] 04/29/2021 Appointment Radiology 05/11/2021 Office Visit Gastroenterology Sergei Sanchez P, DO [address] [place] [address] [phone] 06/02/2021 Office Visit Pharmacy [facility] [address] [place] [address] 06/07/2021 Nutrition Services Gastroenterology Melissa Omalley, SAMANTHA [address] [place] [address] 07/06/2021 Office Visit Hematology Oncology Tono Sanchez MD [address] [place] [address] [phone] 07/27/2021 Office Visit Gastroenterology Lyssa Stout CRNP [address] [place] [address] [phone] 09/09/2021 Imaging Radiology Health Maintenance Due Date [...] of this encounter Implants Implanted Type Area Irrigation Supervisor Device Identifier Shelf Expiration Date Model / Serial / Lot Microtech Sure Clip Implanted:Qty: 2 on 06/03/2020 by Janis Hatch DO at OR [facility] Clip N/A: Colon 04/21/2022 [facility]-F-26-2 35-C-R / / [id number] documented as of this encounter Visit Diagnoses Diagnosis Type 2 diabetes mellitus with hemoglobin A1c goal of less than 7.0% (HCC)- Primary documented in this encounter Advance Directives Documents on File Type Date Recorded Patient Curbstone Setter 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 Healthcare Agent [facility] Communication Syed Fariasel Spouse Emergency Contact
--- OUTSIDE RECORDS SUMMARY | 2023-05-10 20:44 | External Medical Summary | Summary of Care ---
Author Name Unknown Organization [facility] Address [place] [address] Care Team Providers Care Shipping/Receiving Clerk Name Role Phone Vanita Dunn MD Primary Care Provid er Reason for Visit * Reason Onset Date Comments Order Request 04/06/2021 Encounter Details Date Type Department Care Team Description 04/06/2021 Telephone [facility] [address] [place] [address] Vanita Dunn MD [address] [place] [address] Order Request Allergies Active Allergy Reactions Severity Noted Date Comments Adhesive Tape Itching 04/29/2020 Penicillins Rash 02/12/2008 Perflutren Protein A Microsph 2019 Definity-lower back pain documented as of this encounter (statuses as of 04/06/2021) Medications Medication Sig Dispensed Refills Start Date [...] 120 Vial 11 10/02/2019 Active nystatin (NYSTOP) 147137 UNIT/GM powder Apply topically to affected area [...] 60 Each 3 07/27/2020 Active Dexcom G6 Optimization Specialist Device Use as directed. To test [...] Information Patient taking differently: 20 mg Oral [id number], (No instructions reported), Informant: Pharmacy, Reported on [...] Strip 3 10/29/2020 Active OneTouch Delica Plus Hinzce30O TESTING once daily 100 Each 3 10/29/2020 [...] Active Additional Information Patient taking differently: 2 [place] Nasal DAILY PRN, Congestion, Informant: Pharmacy, Reported [...] ([facility]) inject 32 units under skin at [...] as of this encounter (statuses as of 04/06/2021) Active Problems Problem Noted Date Lactic acidosis [...] as of this encounter (statuses as of 04/06/2021) Resolved Problems Problem Noted Date Resolved Date [...] pain 01/24/2012 01/17/2017 Genetic Sleep Disorder Research Other*[id number] 05/13/2011 04/07/2016 Obstructive sleep apnea 01/18/2011 12/27/19 [...] as of this encounter (statuses as of 04/06/2021) Immunizations Name Administration Dates Next Due COVID-19 [...] Miscellaneous Notes * Telephone Encounter - Janett Hurst LPN - 04/06/2021 10:55 AM EDT Order faxed. Confirmation received. * Telephone Encounter - Georgia Nunez OSA - 04/06/2021 9:01 AM EDT An order was requested for this patient. Name of Requesting Provider: Dulce Order Requested: Hospital Bed Diagnosis/Reason for Request: Cerebral Palsy Does the order need to be faxed somewhere? If so, where?: Yes, [facility] Fax Number, if applicable: [phone] Call Back Number: [phone] If the caller is not a current [...] Care Team Description 04/07/2021 Office Visit Pharmacy [address] [address] [phone] 04/09/2021 Immunization/Injection Hematology Oncolog y Nurse, Med 4 [address] [place] [address] [phone] 04/16/2021 Office Visit Podiatry Prakash Martino DPM [address] [place] [address] [phone] 04/29/2021 Telemedicine Palliative Medicine Esperanza Painter MD [address] [place] [address] 04/29/2021 Appointment Radiology 05/11/2021 Office Visit Gastroenterology Sergei Sanchez P, DO [address] [place] [address] [phone] 06/07/2021 Nutrition Services Gastroenterology Melissa Omalley RDN [address] [facility] [address] [place] [address] 07/06/2021 Office Visit Hematology Oncology Tono Sanchez MD [address] [place] [address] [phone] 07/27/2021 Office Visit [facility]ology [facility]out CR[facility] [address] [facility] [place] [address] [phone] 09/09/2021 Imaging Radiology Health Maintenance Due Date [...] of this encounter Implants Implanted Type Area Special Agent Device Identifier Shelf Expiration Date Model / Serial / Lot Microtech Sure Clip Implanted:Qty: 2 on 06/03/2020 by Janis Hatch DO at OR [facility] Clip N/A: Colon 04/21/2022 [facility]-F-26-2 35-C-R / / [id number] documented as of this encounter Advance Directives Documents on File Type Date Recorded 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
--- OUTSIDE RECORDS SUMMARY | 2023-05-10 20:44 | External Medical Summary | Summary of Care ---
Author Name Unknown Organization [facility] Address [place] [address] Care Team Providers Care Surveyor Helper Name Role Phone Vanita Dunn MD Primary Care Provid er Reason for Visit * Reason Onset Date Comments Advice 04/06/2021 Encounter Details Date Type Department Care Team Description 04/06/2021 Telephone [facility] [address] [place] [address] Vanita Dunn MD [address] [place] [address] Advice Allergies Active Allergy Reactions [...] 120 Vial 11 10/02/2019 Active nystatin (NYSTOP) 194343 UNIT/GM powder Apply topically to affected area [...] 60 Each 3 07/27/2020 Active Dexcom G6 Hemodialysis Patient Care Specialist Device Use as directed. To test [...] Information Patient taking differently: 20 mg Oral [id number], (No instructions reported), Informant: Pharmacy, Reported on [...] Strip 3 10/29/2020 Active OneTouch Delica Plus Blxlil03A TESTING once daily 100 Each 3 10/29/2020 [...] less than 7.0% ([facility]) Use to inject insulin four times daily; E11.42 400 Each 3 12/05/2020 Active Fluticasone Propionate 50 MCG/ACT Nasal Suspension (Flonase)Indication s:Sinus congestion USE 2 SPRAYS IN EACH NOSTRIL ONCE DAILY as directed 16 g 5 12/23/2020 Active Additional Information Patient taking differently: 2 [place] Nasal DAILY PRN, Congestion, Informant: Pharmacy, Reported [...] less than 7.0% ([facility]) inject 32 units under skin at [...] breath) 01/30/2021 Uncontrolled type 2 diabetes mellitus [facility] hyperglycemia 07/15/2020 Esophagitis 07/06/2020 Esophageal [...] pain 01/24/2012 01/17/2017 Genetic Sleep Disorder Research Other*[id number] 05/13/2011 04/07/2016 Obstructive sleep apnea 01/18/2011 12/27/19 [...] Telephone Encounter - Tamara Fabian LPN - 04/06/2021 4:59 PM EDT Spoke with Shaina, took another look at the brief and wipes. They stated that it wasn't blood. I advised that they just continue to monitor to make sure that there isn't any blood when changing briefs. Patient agreeable to advise. No further concerns or questions at this time. * Telephone Encounter - Linda Vincent OSA - 04/06/2021 1:54 PM EDT Patient calling in stating that she had blood in her diaper and was told by her when he changed it. She is saying she is unsure where it came from whether that be from her bowels or not. Please advise. documented in this encounter Plan of Treatment Upcoming Encounters Date Type Specialty Care Team Description 04/07/2021 Office Visit Pharmacy [facility] [address] [place] [address] [phone] 04/09/2021 Immunization/Injection Hematology Oncolog y Nurse, Med 4 [address] [place] [address] [phone] 04/16/2021 Office Visit Podiatry Prakash Martino, [place] [address] [place] [address] 04/29/2021 Telemedicine Palliative Medicine Esperanza Painter MD [address] [place] [address] 04/29/2021 Appointment Radiology 05/11/2021 Office Visit Gastroenterology Sergei Sanchez P, DO [address] [place] [address] [phone] 06/07/2021 Nutrition Services Gastroenterology Melissa Omalley RDN [address] [facility] [address] [place] [address] [phone] 07/06/2021 Office Visit Hematology Oncology Tono Sanchez MD [address] [place] [address] [phone] 07/27/2021 Office Visit Gastroenterology Lyssa Stout, ZAK [address] [place] [address] [phone] 09/09/2021 Imaging Radiology Scheduled Orders Name Type Priority Associated Diagnoses Orde r Schedule T4, FREE Lab Routine Abnormal thyroid blood test Hyperthyroidism Ordered: 04/07/2021 T3, FREE Lab Routine Abnormal thyroid blood test Ordered: 04/07/2021 Health Maintenance Due Date Last Done Comments [...] of this encounter Implants Implanted Type Area Driver Manager Device Identifier Shelf Expiration Date Model / Serial / Lot Microtech Sure Clip Implanted:Qty: 2 on 06/03/2020 by Janis Hatch DO at OR [facility] Clip N/A: Colon 04/21/2022 [facility]-F-26-2 35-C-R / / [id number] documented as of this encounter Visit Diagnoses Diagnosis Abnormal thyroid blood test- Primary Nonspecific abnormal results of thyroid function study Hyperthyroidism Thyrotoxicosis without mention of goiter or other cause, without mention of thyrotoxic crisis or storm documented in this encounter Advance Directives Documents on File Type Date Recorded Patient Tester Operator Helper 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
--- OUTSIDE RECORDS SUMMARY | 2023-05-10 20:44 | External Medical Summary | Summary of Care ---
Author Name Unknown Organization [facility] Address [place] [address] Care Team Providers Care Simplex Printer Installer Name Role Phone Vanita Dunn MD Primary Care Provid er Encounter Details Date Type Department Care Team Description 04/05/2021 Property Field InspectorInjection Molding Machine Tender Medicine [address] [place] [address] Ohs, Dominga Robert, RN [address] [place] [address] [place] [address] Ambulatory dysfunction*; Spastic quadriplegic cerebral palsy (HCC); DM type 2 with diabetic peripheral neuropathy ([facility]) Allergies Active Allergy Reactions Severity Noted Date Comments Adhesive Tape Itching 04/29/2020 Penicillins Rash 02/12/2008 Perflutren Protein A Microsph 2019 Definity-lower back pain documented as of this encounter (statuses as of 04/05/2021) Medications Medication Sig Dispensed Refills Start Date [...] 120 Vial 11 10/02/2019 Active nystatin (NYSTOP) 984231 UNIT/GM powder Apply topically to affected area [...] 60 Each 3 07/27/2020 Active Dexcom G6 Core Blower Operator Device Use as directed. To test [...] Information Patient taking differently: 20 mg Oral [id number], (No instructions reported), Informant: Pharmacy, Reported on [...] Strip 3 10/29/2020 Active OneTouch Delica Plus Anprzs27E TESTING once daily 100 Each 3 10/29/2020 [...] Active Additional Information Patient taking differently: 2 [place] Nasal DAILY PRN, Congestion, Informant: Pharmacy, Reported [...] less than 7.0% ([facility]) inject 32 units under skin at bedtime [...] as of this encounter (statuses as of 04/05/2021) Active Problems Problem Noted Date Lactic acidosis [...] as of this encounter (statuses as of 04/05/2021) Resolved Problems Problem Noted Date Resolved Date [...] pain 01/24/2012 01/17/2017 Genetic Sleep Disorder Research Other*[id number] 05/13/2011 04/07/2016 Obstructive sleep apnea 01/18/2011 12/27/19 [...] as of this encounter (statuses as of 04/05/2021) Immunizations Name Administration Dates Next Due COVID-19 [...] as of this encounter Progress Notes * Moshen, Dominga Robert, UMA - 04/05/2021 2:43 PM EDT Case Management Assessment Is this call for a hospital, penitentiary or rehab facility discharge to home? Yes Shaina presented to [facility] on 03/31/21 c/o RLQ abdominal pain last night. She describes it as sharp, intermittent pains that do not radiate and come and go on their own. She endorses constipation as well. Her last BM was Monday. At that time, she was cleaned out from her lactulose but no BMs since then. She denies any missed doses or changes to medications or diet. Patient denies any nausea, vomiting, or fevers. She endorses some chills. She also endorses dysuria, hematuria, and decreased urine output. She states her urine has been more concentrated, noting it to be dark and orange in color. Was found to have UTI w ith MRSA positive on initial culture and then S. aureus on 2nd culture. ID was consulted and recommended no antibiotics as blood cultures were negative. She also was found to be anemic and received 1unit of PRBC's while an inpatinet. She was able to be discharge home with Home Health on 04/03/21. S: Reports: Her Hgb was 7.9 up from 6.6 on admission. She says she is feeling "ok". She was in and saw the PA today for her hospital f/u appointment. She reports a decreased appetite. Her FBS was 87 this am and she says she never has a low reading. Advised to keep track of reading and if they are consistently low she needs to let us know as her insulin may need adjusted. She agrees. Spoke with Syed as well and he reports that they are ordering a hospital bed for her so she can elevate her HOB as well as her lower extremities. She is wheelchair bound and uses a Svetlana lift to get in and out of bed. Syed is concerned that the bed will not fit in the home as will be too long. I did speak to Juan Carlos at [facility] and informed him of husbands concerns. afraid it may block the door in their home.Juan Carlos will follow up. She did have some repeat labs done today at the clinic.She had an enema prior to leaving the hospital on Monday and BM this am per Shaina. Wears her 02 at bedtime and not during the day. Her breathing is baseline. She does have a nebulizer to use if needed. To continue her Lactulose. She denies any pain anywhere today. Home Care services through [facility] O: Phone visit for CM BALDOMERO comprehensive assessment and f/u for hospital discharge 04/03/21. Medications: takes all medications as prescribed. Does this patient qualify for an annual wellness visit? No A: Patient Centered Prioritized Goals: Development of self - management action plan with patient/caregiver/ provider. Patient and caregiver demonstrate basic understanding of their disease process. Exacerbations have been prevented, minimized or reduced in severity. Co-morbid conditions identified and managed. Patient/ caregiver demonstrates adherence to treatment plan. Identified Barriers: Non ambulatory FUNCTIONAL STATUS: (Definition - assess ability to patient to manage their own care, includes evaluation of activities of daily living, and instrumental activities of daily living, and cognitive abilities status) ADL'S - Needs Assistance With: Bathing, Dressing, Toileting, Transferring and Continence IADL'S - Needs Assistance With: Grocery Shopping, Cooking food, Routine Housework, Taking medications and Attending to safety Cognitive and Mental Health: denies problems, alert and oriented x 3 and able to communicate, understand instructions, process information. P: Property Field Inspector Interventions: Reinforce Self Management Action Plan established at previous visit Reinforced "call back instructions" if weight fails to return to baseline, urine outputs decrease, symptoms increase Reinforced fluid / diet restrictions Reinforced sodium restriction Reinforced CHO consistency Reinforced safety education / fall prevention Reinforced medication regimen - timing / dosing / purpose Explained/reinforced role of manager of case. Encouraged to call with any issues or concerns. Gave direct phone number and contact information. PCP Notified of enrollment in CM/HM program: Yes SNP Member? No Re-evaluation of plan of care and progress towards goals achievement: Plan to call patient in 1 week to reassess and update plan of care, instructed to call Case Manageror Primary Care Provider with change in symptoms or as needed before next follow-up, verbalizes understanding and agrees with plan. Dominga Connolly RN Outpatient Property Field Inspector documented in this encounter Plan of Treatment Upcoming Encounters Date Type Specialty Care Team Description 04/07/2021 [facility] [address] [facility] 04/09/2021 Immunization/Injection Hematology Oncolog y Nurse, Med 4 [address] [place] [address] [phone] 04/16/2021 Office Visit Podiatry Prakash Martino, DPM [address] [place] [address] 04/29/2021 Telemedicine Palliative Medicine Esperanza Painter MD [address] [place] [address] 04/29/2021 Appointment Radiology 05/11/2021 Office Visit Gastroenterology Sergei Sanchez, DO [address] [place] [address] [phone] 06/07/2021 Nutrition Services Gastroenterology Melissa Omalley, LU[place] [address] [place] [address] 07/06/2021 Office Visit Hematology Oncology Tono Sanchez MD [address] [place] [address] 07/27/2021 Office Visit Gastroenterology Lyssa Stout CRNP [address] [place] [address] 09/09/2021 Imaging Radiology Health Maintenance Due [...] of this encounter Implants Implanted Type Area Developer Programmer Device Identifier Shelf Expiration Date Model / Serial / Lot Microtech Sure Clip Implanted:Qty: 2 on 06/03/2020 by Janis Hatch DO at OR [facility] Clip N/A: Colon 04/21/2022 [facility]-F-26-2 35-C-R / / [id number] documented as of this encounter Visit Diagnoses Diagnosis Ambulatory dysfunction- Primary 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
--- OUTSIDE RECORDS SUMMARY | 2023-05-10 20:45 | External Medical Summary ---
Author Name Unknown Address Unknown Organization [id number]:LABORATORY [facility] - [address] [facility] [place] [address] Laboratory Report Ordering Provider Test Date Status SEBASTIÁN KOEHLER 04/05/2021 13:42:52 Final Observation Date Value Abnormality Reference (Units ) Status SYNC LEUKOCYTES IN BLOOD BY AUTOMATED COUNT 04/05/2021 13:42:52 3.37 Below low normal 4.00-10.80 (K/uL) Final Segs 04/05/2021 13:42:52 55.2 40.0-75.0 (%) Final Lymphs % 04/05/2021 13:42:52 23.4 18.0-42.0 (%) Final Monos 04/05/2021 13:42:52 13.1 Above high normal 1.0-11.0 (%) Final Eosinophils 04/05/2021 13:42:52 6.8 Above high normal 0.0-6.0 (%) Final Basos 04/05/2021 13:42:52 1.2 0.0-2.0 (%) Final Immature Granulocyte, Percent 04/05/2021 13:42:52 0.3 0.0-2.0 (%) Final Absolute Segs 04/05/2021 13:42:52 1.86 1.80-7.70 (K/uL) Final Lymphs, absolute 04/05/2021 13:42:52 0.79 Below low normal 1.00-4.80 (K/ul) Final Monos, Abs 04/05/2021 13:42:52 0.44 0.00-1.10 (K/uL) Final Eos, Abs 04/05/2021 13:42:52 0.23 0.00-0.70 (K/uL) Final Basos, Abs 04/05/2021 13:42:52 0.04 0.00-0.20 (K/uL) Final Immature Granulocytes, Number 04/05/2021 13:42:52 0.01 0.00-0.20 (K/uL) Final Performing Location LABORATORY [facility] - [facility] [address]. [facility] [address]
--- OUTSIDE RECORDS SUMMARY | 2023-05-10 20:45 | External Medical Summary ---
Author Name Unknown Address Unknown Organization [id number]:LABORATORY [facility] - [address] [place] [address] Laboratory Report Ordering Provider Test Date Status ZAKIASEANDENNIS 04/05/2021 13:42:53 Final Observation Date Value Abnormality Reference (Units ) Status TSH 04/05/2021 13:42:53 0.02 Below low normal 0.2 7-4.20 (uIU/mL) Final Performing Location LABORATORY [facility] - [address] [place] [address]
--- OUTSIDE RECORDS SUMMARY | 2023-05-10 20:45 | External Medical Summary | Summary of Care ---
Author [place] [address] Care Team Providers Care Patrol Captain Name Role Phone Vanita Dunn MD Primary Care Provid er Reason for Visit * Reason Comments Hospital Follow-Up was in [facility]. Encounter Details Date Type Department Care Team Description 04/05/2021 Office Visit [facility] [address] [place] [address] Brianne Pal PA-C [address] [place] [address] Hospital discharge follow-up*; Type 2 diabetes mellitus with hemoglobin A1c goal of less than 7.0% (HCC); Recurrent major depressive disorder, in partial remission (HCC); Urinary catheter dysfunction, initial encounter ([facility]); Ambulatory dysfunction; Spastic quadriplegic cerebral palsy ([facility]); Alcoholic cirrhosis of liver without ascites ([facility]); HTN, goal below 140/90; Wheeze; Bilateral impacted [...] 120 Vial 11 10/02/2019 Active nystatin (NYSTOP) 900246 UNIT/GM powder Apply topically to affected area [...] 60 Each 3 07/27/2020 Active Dexcom G6 Ordnance Artificer Device Use as directed. To test blood [...] Information Patient taking differently: 20 mg Oral [id number], (No instructions reported), Informant: Pharmacy, Reported on [...] Strip 3 10/29/2020 Active OneTouch Delica Plus [id number] TESTING once daily 100 Each 3 10/29/2020 [...] Active Additional Information Patient taking differently: 2 [place] Nasal DAILY PRN, Congestion, Informant: Pharmacy, Reported [...] pain 01/24/2012 01/17/2017 Genetic Sleep Disorder Research Other*[id number] 05/13/2011 04/07/2016 Obstructive sleep apnea 01/18/2011 12/27/19 [...] calluses yourself. Talk to your doctor or home service director (a doctor who specializes in foot care) [...] the area doesnt appear to be healing. [phone] [employer], [address] [place] [address], [place] [address]. All rights reserved. This information is not intended as a substitute for professional medical care. Always follow your healthcare professional's instructions. documented in this encounter Progress Notes * Brianne Pal PA-C - 04/05/2021 12:40 PM EDT Subjective Shaina Bustos is a 65 year old female that presents for Hospital Follow-Up (was in [facility]. ) HPI: Here for hospital follow up. Was to [facility] on 03/31/2021. Admitted from ER for abd pain. Maury to be somewhat constipated. This is an ongoing issue for her. She had urinary symptoms aswell with some culture proven infection. She is taking her abx - don tells me that he had to fight [...] than 7.0% ([facility]) 09/26/2013 ICD-10 update of inactive term Extensive ROS Constitutional (f/c/wt/vision/hearing): Negative Resp (cough/sob/whiting): active wheeze here - all up in her bronchial tubes, cannot cough junk up easily even when she has a cough - using advair, she uses Neb on occasion. She tends to not want to use this - don feels that if she does not hold [...] than 7.0% ([facility]) (Primary) - DIABETES FOOT EXAM - CBC WITH WBC DIFFERENTIAL AND ANEMIA REFLEX WORKUP; Future; Expected date: 04/05/2021 - COMPREHENSIVE METABOLIC PANEL; Future; Expected date: 04/05/2021 Recurrent major depressive disorder, in partial remission ([facility]) Urinary catheter dysfunction, initial encounter ([facility]) Ambulatory dysfunction - DURABLE MEDICAL EQUIPMENT Spastic quadriplegic cerebral palsy ([facility]) - DURABLE MEDICAL EQUIPMENT Alcoholic cirrhosis of liver without ascites ([facility]) - rev labs HTN, goal below 140/90 [...] ear. Restart nebulizer Will work with Dr dunn to get her a hospital bed Total [...] Foot Exam completed today. Provider aware. Janett Hurst LPN Socks and Shoes Removed for Annual Diabetic [...] Patient presents with Hospital Follow-Up was in [facility]. documented in this encounter Plan of Treatment Upcoming Encounters Date Type Specialty Care Team Description 04/07/2021 Office Visit Pharmacy [place], [facility] [address] [place] [address] [phone] 04/09/2021 Immunization/Injection Hematology Oncolog y Nurse, Med [address] [place] [address] [phone] 04/16/2021 Office Visit Podiatry Prakash Martino, SIRENA [address] [place] [address] 04/29/2021 Telemedicine Palliative Medicine Esperanza Painter MD [address] [place] [address] 04/29/2021 Appointment Radiology 05/11/2021 Office Visit Gastroenterology Sergei Sanchez P, DO [address], [place] [id number] 06/07/2021 Nutrition Services Gastroenterology Melissa Omalley RDN [address] [facility] [address] [place] [address] [phone] 07/06/2021 Office Visit Hematology Oncology Tono Sanchez MD [address] [place] [address] [phone] 07/27/2021 Office Visit Gastroenterology Lyssa Stout CRNP [address] [place] [address] [phone] 09/09/2021 Imaging Radiology Pending Results Name Type Priority Associated Diagnoses Date /Time CBC WITH WBC DIFFERENTIAL AND ANEMIA REFLEX WORKUP Lab Routine Type 2 diabetes mellitus with hemoglobin A1c goal of less than 7.0% (HCC) 04/05/2021 1:42 PM EDT COMPREHENSIVE METABOLIC PANEL Lab Routine Type 2 diabetes mellitus with hemoglobin A1c goal of less than 7.0% (HCC) 04/05/2021 1:42 PM EDT Scheduled Orders Name Type Priority Associated Diagnoses Orde r Schedule CBC WITH WBC DIFFERENTIAL AND ANEMIA REFLEX WORKUP Lab Routine Type 2 diabetes mellitus with hemoglobin A1c goal of less than 7.0% (HCC) Expected: 04/05/2021 (Approximate), Expires: 04/05/2022 COMPREHENSIVE METABOLIC PANEL Lab Routine Type 2 diabetes mellitus with hemoglobin A1c goal of less than 7.0% (HCC) Expected: 04/05/2021 (Approximate), Expires: 04/05/2022 REMOVAL IMPACTED CERUMEN IRRIGATION/LAVAGE, UNILAT Procedures Routine [...] of this encounter Implants Implanted Type Area Wrinkle Chaser Device Identifier Shelf Expiration Date Model / Serial / Lot [employer] Sure Clip Implanted:Qty: 2 on 06/03/2020 by Janis aHtch DO at OR [facility] Clip N/A: Colon 04/21/2022 [facility]-F-[id number] 35-C-R / / [id number] documented as of this encounter Visit Diagnoses [...] on File Type Date Recorded Patient Registered Nurse Step Down 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
--- OUTSIDE RECORDS SUMMARY | 2023-05-10 20:45 | External Medical Summary ---
Author Name Unknown Address Unknown Organization [id number]:LABORATORY [facility] [place] - [address] [place] [address] Laboratory Report Ordering Provider Test Date Status ZAKIASEANDENNIS 04/05/2021 13:42:52 Final Observation Date Value Abnormality Reference (Units ) Status BUN 04/05/2021 13:42:52 9 6-20 (mg/dL) Final Creatinine 04/05/2021 13:42:52 0.6 0.5-1.0 (mg/dL) Final Glomerular filtration rate/1.73 sq M.predicted [Volume Rate/Area] in Serum, Plasma or Blood by Creatinine-based formula (CKD-EPI) 04/05/2021 13:42:52 >90.0 >=60.0 (mL/min) Final Performing Location LABORATORY [facility] [place] - [address] [place] [address]
--- OUTSIDE RECORDS SUMMARY | 2023-05-10 20:45 | External Medical Summary ---
Author Name Unknown Address Unknown Organization [id number]:LABORATORY [facility] [place] - [address] [place] [address] Laboratory Report Ordering Provider Test Date Status SEBASTIÁN KOEHLER 04/05/2021 13:42:52 Final Observation Date Value Abnormality Reference (Units ) Status T3, Free 04/05/2021 13:42:52 2.5 2.5-4.3 (p g/mL) Final Performing Location LABORATORY [facility] - [address] [place] [address]
--- OUTSIDE RECORDS SUMMARY | 2023-05-10 20:45 | External Medical Summary ---
Author Name Unknown Address Unknown Organization [id number]:[facility] [place] [facility] [place] [address] Laboratory Report Ordering Provider Test Date Status SEBASTIÁN KOEHLER 04/05/2021 13:42:52 Final Observation Date Value Abnormality Reference (Units ) Status Retic, % (auto) 04/05/2021 13:42:52 3.45 Above high normal 0.80-1.90 (%) Final Reticulocytes, Absolute 04/05/2021 13:42:52 93.8 31.3-100.1 (K/uL) Final Reticulocyte fraction, immature 04/05/2021 13:42:52 32.1 Above high normal 2.5-20.6 (%) Final Reticulocyte HGB 04/05/2021 13:42:52 27.5 Below low normal 29.7-37.4 (pg) Final Performing Location [facility] - [address] [place] [address]
--- OUTSIDE RECORDS SUMMARY | 2023-05-10 20:45 | External Medical Summary ---
Author Name Unknown Address Unknown Organization [id number]:LABORATORY [facility] [place] - [address] [place] [address] Laboratory Report Ordering Provider Test Date Status SEBASTIÁN KOEHLER 04/05/2021 13:42:52 Final Observation Date Value Abnormality Reference (Units ) Status WBC, Total 04/05/2021 13:42:52 3.37 Below low normal 4. 00-10.80 (K/uL) Final RBC 04/05/2021 13:42:52 2.72 Below low normal 3.8 5-5.15 (M/uL) Final Hemoglobin 04/05/2021 13:42:52 8.1 Below low normal 12 .0-15.3 (g/dL) Final Performing Location LABORATORY [facility] - [address] [place] [address]
--- OUTSIDE RECORDS SUMMARY | 2023-05-10 20:45 | External Medical Summary ---
Author Name Unknown Address Unknown Organization [id number]:[facility]ORY [facility] [place] [address] [place] [address] Laboratory Report Ordering Provider Test Date Status ZAKIASEANDENNIS 04/05/2021 13:42:53 Final Observation Date Value Abnormality Reference (Units ) Status Creatinine 04/05/2021 13:42:53 0.6 0.5-1.0 (mg/dL) Final Glomerular filtration rate/1.73 sq M.predicted [Volume Rate/Area] in Serum, Plasma or Blood by Creatinine-based formula (CKD-EPI) 04/05/2021 13:42:53 >90.0 >=60.0 (mL/min) Final Performing Location LABORATORY [facility] - [address] [place] [address]
--- OUTSIDE RECORDS SUMMARY | 2023-05-10 20:45 | External Medical Summary ---
Author Name Unknown Address Unknown Organization [id number]:[facility] [place] [address] [place] [address] Laboratory Report Ordering Provider Test Date Status LEXI KOEHLERESPERANZA 04/05/2021 13:42:52 Final Observation Date Value Abnormality Reference (Units ) Status T4, Free 04/05/2021 13:42:52 2.4 Above high normal 0. 9-1.7 (ng/dL) Final Performing Location LABORATORY [facility] - [address] [place] [address]
--- OUTSIDE RECORDS SUMMARY | 2023-05-10 20:46 | External Medical Summary ---
Author Name Unknown Address Unknown Organization K01:[facility]ORY [facility] [place] [address] [place] [address] Laboratory Report Ordering Provider Test Date Status BRONWYN PLATA 04/03/2021 05:05:00 Final Observation Date Value Abnormality Reference (Units ) Status WBC, Total 04/03/2021 05:05:00 3.26 Below low normal 4.00-10.80 (K/uL) Final RBC 04/03/2021 05:05:00 2.58 Below low normal 3.85-5.15 (M/uL) Final Hemoglobin 04/03/2021 05:05:00 7.9 Below low normal 12.0-15.3 (g/dL) Final HCT 04/03/2021 05:05:00 26.5 Below low normal 36.0-45.2 (%) Final MCV 04/03/2021 05:05:00 102.7 Above high normal 81.5-97.5 (fL) Final MCH 04/03/2021 05:05:00 30.6 27.0-34.0 (pg) Final MCHC 04/03/2021 05:05:00 29.8 Below low normal 32.0-36.0 (g/dL) Final RDW 04/03/2021 05:05:00 19.8 Above high normal 11.5-15.5 (%) Final MPV 04/03/2021 05:05:00 12.3 Above high normal 6.6-11.1 (fL) Final Nucleated erythrocytes/100 leukocytes [Ratio] in Blood by Automated count 04/03/2021 05:05:00 2 Above high normal <=0 (/100 WBCs) Final Platelets 04/03/2021 05:05:00 81 Below low normal 140-400 (K/uL) Final Performing Location LAB[facility]ORY [facility] [place] - [address] [place] [address]
--- OUTSIDE RECORDS SUMMARY | 2023-05-10 20:46 | External Medical Summary ---
Author Name Unknown Address Unknown Organization : Laboratory Report Ordering Provider Test Date Status MERRY OVIEDO 04/02/2021 17:15:23 Final Observation Date Value Abnormality Reference (Units ) Status Glucose Point of Care 04/02/2021 17:15:23 201 Above high normal 70-120 (mg/dL) Final Performing Location
--- OUTSIDE RECORDS SUMMARY | 2023-05-10 20:46 | External Medical Summary ---
Author Name Unknown Address Unknown Organization K01:LABORATORY [facility] - [address] [place] [address] Laboratory Report Ordering Provider Test Date Status BRONWYN PLATA 04/03/2021 07:42:00 Final Observation Date Value Abnormality Reference (Units ) Status CRP, low-sensitivity 04/03/2021 07:42:00 14 Above high normal <=5 (mg/L) Final Performing Location LABORATORY [facility] - [address] [place] [address]
--- OUTSIDE RECORDS SUMMARY | 2023-05-10 20:46 | External Medical Summary ---
Author Name Unknown Address Unknown Organization K01:LABORATORY [facility] [place] - [address] [place] [address] Laboratory Report Ordering Provider Test Date Status BRONWYN PLATA 04/02/2021 12:48:00 Final Observation Date Value Abnormality Reference (Units ) Status Erythrocyte sedimentation rate by Photometric method 04/02/2021 12:48:00 20 <30 (mm/hour) Final Performing Location LABORATORY [facility] [place] - [address] [place] [address]
--- OUTSIDE RECORDS SUMMARY | 2023-05-10 20:46 | External Medical Summary | Summary of Care ---
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 Name Role Phone Vanita Dunn MD Primary Care Provid er Reason for Visit * Reason Onset Date Comments Hospital Follow-Up 03/25/2021 Hem/onc Disch arge Encounter Details Date Type Department Care Team Description 03/25/2021 Telephone Hematology/Oncology Treatment, [address] [address] Tono Pichardo MD [address] [place] [address] [phone] Hospital Follow-Up (Hem/onc Discharge) Allergies Active Allergy Reactions Severity Noted Date Comments Adhesive Tape Itching 04/29/2020 Penicillins Rash 02/12/2008 Perflutren Protein A Microsph 2019 Definity-lower back pain documented as of this encounter (statuses as of 04/02/2021) Medications Medication Sig Dispensed Refills Start Date End Date Status CENTRUM SILVER PO TABS Take 1 Tab by mouth daily. 1 Tab 0 05/25/2012 Suspended vitamin c (ASCORBIC ACID) 500 MG Tablet Take 500 mg by mouth daily. 0 Suspended albuterol sulfate (PROVENTIL) (2.5 MG/3ML) 0.083% nebulizer solutionIndicatio ns:Pulmonary vascular congestion Inhale 1 Vial via nebulizer every 6 hours as needed for Wheezing. 120 Vial 11 10/02/2019 Suspended Additional Information nystatin (NYSTOP) 934733 UNIT/GM powder Apply topically to affected area 3 times a day. 60 g 1 10/16/2019 Suspended Additional Information Albuterol Sulfate (ALBUTEROL HFA) 108 (90 BASE) MCG/ACT inhalerIndication s:Intermittent asthma with reliever use up to twice per week without complication Inhale 2 Puffs by mouth every 4 hours as needed for Cough or Wheezing. With spacer 16 g 1 11/06/2019 Suspended Additional Information Blood Glucose Monitoring Suppl (BLOOD GLUCOSE MONITOR SYSTEM) w/Device KIT Use to test once per day. 1 Kit 0 11/19/2019 Suspended Additional Information silver sulfadiazine (SILVADENE) 1 % cream Apply topically to affected area daily. Apply to right great toe 50 g 0 05/26/2020 Suspended Additional Information Ipratropium-Albut jayme 0.5-2.5 (3) MG/3ML Inhalation Solution (DUONEB)Indicatio ns:Moderate persistent asthma with acute exacerbation Inhale 3 mL via nebulizer 4 times a day. 3 mL 10 07/27/2020 Suspended Additional Information Patient taking differently: 3 mL Nebulizer QID PRN, Shortness of Breath, Informant: Pharmacy, Reported on 02/04/2021 Fluticasone-Salme terol 250-50 MCG/DOSE Inhalation Aerosol Powder Breath Activated (Advair Diskus)Indication s:Moderate persistent asthma with acute exacerbation Inhale 1 Puff by mouth 2 times a day. 60 Each 3 07/27/2020 Suspended Additional Information Dexcom G6 Polyethylene Bag Machine Operator Device Use as directed. To test blood sugars 4 times a day Dx E11.9 1 Each 0 09/14/2020 Suspended Additional Information Dexcom G6 Sensor Use as directed. To test blood sugars 4 times a day. Change sensor every 10 days. Dx E11.9 Please dispense 3 boxes for 90 day supply 3 Each 3 09/14/2020 Suspended Additional Information Dexcom G6 Transmitter Use as directed. To test blood sugars 4 times a day. Change every 90 days. Dx E11.9 1 Each 3 09/14/2020 Suspended Additional Information Nadolol 20 MG Oral Tablet (CORGARD)Indicati ons:HTN, goal below 140/90 One daily 90 Tab 1 09/19/2020 Suspended Additional Information Patient taking differently: 20 mg Oral [id number], (No instructions reported), Informant: Pharmacy, Reported on 03/31/2021 Lidocaine-Priloca ine 2.5-2.5 % External Cream (Emla)Indications :Iron deficiency anemia due to chronic blood loss,Pancytopenia (HCC) Apply topically to affected area as needed for Other (for port). APPLY TO SKIN OVER MEDIPORT & COVER 1HR PRIOR TO ACCESSING. 30 g 3 10/09/2020 Suspended Additional Information OneTouch Verio In Vitro Strip (Glucose Blood) TESTING once daily 100 Strip 3 10/29/2020 Suspended Additional Information OneTouch Delica Plus [id number] TESTING once daily 100 Each 3 10/29/2020 Suspended Additional Information Levothyroxine Sodium 200 MCG Oral Tablet (Levoxyl) TAKE 1 TABLET BY MOUTH ONCE DAILY 90 Tab 3 11/02/2020 Suspended Additional Information Oxybutynin Chloride 5 MG Oral Tablet (Ditropan) TAKE 1 TABLET BY MOUTH TWICE DAILY 60 Tab 5 11/02/2020 Suspended Additional Information Gabapentin 300 MG Oral Capsule (Neurontin) TAKE 1 CAPSULE BY MOUTH EVERY MORNING, 1 CAPSULE MIDDAY AND 2 CAPSULES IN THE EVENING 180 Cap 5 11/02/2020 Suspended Additional Information Linzess 290 MCG Oral Capsule (linaCLOtide) TAKE 1 CAPSULE BY MOUTH ONCE DAILY BEFORE BREAKFAST 90 Cap 1 11/29/2020 Suspended Additional Information traZODone HCl 50 MG Oral Tablet (Desyrel)Indicati ons:Sleep disturbances TAKE 1 TABLET BY MOUTH AT BEDTIME 90 Tab 2 11/30/2020 Suspended Additional Information BD Pen Needle Mini U/F 31G X 5 MM (Insulin Pen Needle)Indication s:Type 2 diabetes mellitus with hemoglobin A1c goal of less than 7.0% (HCC) Use to inject insulin four times daily; E11.42 400 Each 3 12/05/2020 Suspended Additional Information Fluticasone Propionate 50 MCG/ACT Nasal Suspension (Flonase)Indicati ons:Sinus congestion USE 2 SPRAYS IN EACH NOSTRIL ONCE DAILY as directed 16 g 5 12/23/2020 Suspended Additional Information Patient taking differently: 2 Drake Nasal DAILY PRN, Congestion, Informant: Pharmacy, Reported on 02/04/2021 Escitalopram Oxalate 20 MG Oral Tablet (Lexapro)Indicati ons:Recurrent major depressive disorder, in partial remission (HCC) TAKE 1 TABLET BY MOUTH ONCE DAILY 90 Tab 3 12/28/2020 Suspended Additional Information Pantoprazole Sodium 20 MG Oral Tablet Delayed Release (Protonix)Indicat ions:NAFLD (nonalcoholic fatty liver disease),Other cirrhosis of liver (HCC) TAKE 2 TABLETS BY MOUTH TWICE DAILY 180 Tab 1 12/29/2020 Suspended Additional Information Trulicity 4.5 MG/0.5ML Subcutaneous Solution Pen-injector (Dulaglutide) Inject one pen (4.5mg) under the skin once a week 6 mL 3 01/25/2021 03/31/20 21 Discontinued( Medication List Clean Up) Cinnamon 500 MG Oral Capsule Take 500 mg by mouth daily. 0 Suspended Lactulose 20 GM/30ML Oral Solution (Constulose) Take 67.5 mL by mouth 3 times a day. Titrate to have 3 to 4 bowel movement every day. 2700 mL 2 02/09/2021 03/29/20 21 Discontinued( Refill) traMADol HCl 50 MG Oral Tablet (Ultram)Indicatio ns:Abdominal pain, left lower quadrant Take 1 Tab by mouth every 6 hours as needed for Pain, Moderate. 30 Tab 0 02/15/2021 03/29/20 21 Discontinued( Refill) Spironolactone 25 MG Oral Tablet (Aldactone) Take 0.5 Tabs by mouth daily. 30 Tab 5 03/03/2021 Suspended Additional Information Furosemide 40 MG Oral Tablet (Lasix) Take 1 Tab by mouth daily. 30 Tab 5 03/03/2021 03/31/20 21 Discontinued( Medication List Clean Up) Nitroglycerin 0.4 MG Sublingual Tablet Sublingual (Nitrostat) Place 1 Tab under the tongue every 5 minutes as needed for Pain, Chest. up to 3 doses in 15 minutes 25 Tab 11 03/03/2021 Suspended Additional Information BiPAP every night at bedtime. 0 Suspended MEDICAL INSTRUCTIONSIndic ations:Iron deficiency anemia due to chronic blood loss Please de-access patient's port. Please flush with 10 mL of NS, followed by 500 units (5 mL) of heparin. 1 Each 0 03/12/2021 Suspended Cyclobenzaprine HCl 10 MG Oral Tablet (Flexeril) TAKE 1 TABLET ONCE DAILY AT BEDTIME 30 Tab 0 03/22/2021 Suspended Additional Information Atorvastatin Calcium 80 MG Oral Tablet (Lipitor) Take 1 Tab by mouth at bedtime. 30 Tab 5 03/23/2021 Suspended Additional Information Patient not taking. Reported on 03/31/2021 Aspirin 81 MG Oral Tablet Chewable Take 1 Tab by mouth daily. 30 Tab 5 03/23/2021 Suspended Additional Information Patient not taking. Reported on 03/31/2021 Isosorbide Mononitrate ER 30 MG Oral Tablet Extended Release 24 Hour (Imdur) Take 1 Tab by mouth daily. 30 Tab 5 03/23/2021 Suspended Additional Information Lantus SoloStar 100 UNIT/ML Subcutaneous Solution Pen-injector (Insulin Glargine)Indicati ons:Type 2 diabetes mellitus with hemoglobin A1c goal of less than 7.0% (HCC) inject 32 units under skin at bedtime 30 mL 3 03/24/2021 Suspended Additional Information Insulin Aspart 100 UNIT/ML Subcutaneous Solution (NovoLOG) Inject 6 Units under the skin three times a day before meals. 30 mL 3 03/24/2021 03/31/20 21 Discontinued( Medication List Clean Up) documented as of this encounter (statuses as of 04/02/2021) Active Problems Problem Noted Date Lactic acidosis [...] hyperglycemia 07/15/2020 Esophagitis 07/06/2020 Esophageal varices 07/06/2020 Diabetic ulcer of right great toe 2019 Iron deficiency anemia due to chronic bl [...] goal below 140/90 03/27/2012 Chronic rhinitis 03/27/2012 Urinary tract infection 01/27/2012 Cerebral palsy 01/24/2012 Spinal stenosis of lumbar region without neurogenic claudication 12/27/2010 Venous insufficiency 01/09/2009 DDD (degenerative disc disease), lumbar Dyslipidemia, goal LDL below 70 documented as of this encounter (statuses as of 04/02/2021) Resolved Problems Problem Noted Date Resolved Date AMS (altered mental status) 02/04/202101/10 Acute blood loss anemia 07/06/2020 12/01/19 21 Bacteremia 07/04/2020 11/30/2020 Pain of upper abdomen 04/23/2020 05/05/2020 Cellulitis [...] MEDICATION USE AGREEMENT 03/27/2012 017 Overview: 03/27/12 Sleep disturbance 01/24/2012 07/02/2014 Malaise and fatigue 01/24/2012 06/07/2016 Myalgia and myositis 01/24/2012 06/07/2016 Urinary frequency 01/24/2012 07/02/2014 Urgency of urination 01/24/2012 06/07/2016 Kidney disease, chronic, stage III (GFR 30-59 ml /min) 01/24/2012 03/27/2012 Chronic pain 01/24/2012 01/17/2017 Genetic Sleep Disorder Research Other*[id number] 05/13/2011 04/07/2016 Obstructive sleep apnea 01/18/2011 12/27/19 [...] as of this encounter (statuses as of 04/02/2021) Immunizations Name Administration Dates Next Due COVID-19 [...] you have serious difficulty h earing? No 03/22/2021 Are you blind or do you have serious difficulty seeing, even when wearing glasses? No 03/22/2021 Do you have serious difficul ty walking or climbing stairs? 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 03/22/2021 Do you have difficulty dress ing or bathing? 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 03/22/2021 Because of a physical, menta l, or emotional condition, do you have difficulty doing errands alone such as visiting a doctor s office or shopping? (15 years old or older) Yes 03/22/20 Cognitive Status Response Date of Assessm ent Because of a physical, menta l, or emotional condition, do you have serious difficulty concentrating, remembering, or making decisions? (5 years old or older No 03/22/2021 documented as of this encounter Miscellaneous Notes * Telephone Encounter - JethrofahadorlandoLucero OSA - 04/02/2021 10:35 AM EDT Called X3 and lmom for patient to give us a call to get scheduled for "Monoferric" (Pichardo). Left number of [phone] Option 1. Letter sent * Telephone Encounter - Lucero Wang OSA - 03/31/2021 11:23 AM EDT Called X2 and lmom for patient to give us a call to get scheduled for "Monoferric" (Pichardo). Left number of [phone] Option 1. * Telephone Encounter - Lucero Wang OSA - 03/29/2021 11:04 AM EDT Called and lmom for patient to give us a call to get rescheduled for "Monoferric" (Pichardo) 2 hr. * Telephone Encounter - Francine Okeefe RN - 03/25/2021 2:13 PM EDT Patient admitted at [facility] from 03/21-03/24 with abdominal pain and uncontrolled blood glucose levels. Pt was unable to attend appointment yesterday for monofferic as she was being discharged. Called pt to follow up, no answer. Left a message on machine. Dr Pichardo: FYI Scheduling: pt will need rescheduled for monoferric from yesterday. 2 hr appointment on 503 (pichardo)"Monoferric." please contact patient to re-schedule. Thank you! documented in this encounter Plan of Treatment Upcoming Encounters Date Type Specialty Care Team Description 04/05/2021 Office Visit Family Medicine Brianne Pal PA-C [address] [place] [address] [phone] 04/07/2021 [facility] [address] [place] [address] [phone] 04/09/2021 Immunization/Injection Hematology Oncolog y Nurse, Med [address] [place] [address] [phone] 04/16/2021 Office Visit Podiatry Prakash Martino, DPBelen [address] [place], [place] [id number] 04/29/2021 Telemedicine Palliative Medicine Esperanza Painter MD [address] [place] [address] [phone] 04/29/2021 Appointment Radiology 05/11/2021 Office Visit Gastroenterology Sergei Pichardo P, DO [address] [place] [address] 06/07/2021 Nutrition Services Gastroenterology Melissa Omalley RDN [address] [facility] [address] [place] [address] [phone] 07/06/2021 Office Visit Hematology Oncology Tono Pichardo MD [address] [facility] [place] [address] [phone] 07/27/2021 Office Visit Gastroenterology Lyssa Stout CRNP [address] [facility] [place] [address] [phone] 09/09/2021 Imaging Radiology Health Maintenance Due Date Last Done Comments DIABETES-EYE EXAM 06/12/2019 06/12/2018, , 06/12/2018, Additional history exists Dexa Scan 2020 Zoster Vaccines (3 of 3) 06/23/2020 04/28/2020, 11/11 DIABETES-FOOT EXAM 11/06/2020 11/06/2019, 0 01/09/2019, 12/26/2017, Additional history exists COVID-19 Vaccine (2 - Moderna 2-dose series) [...] 04/01/2022 04/01/2021, 03/11, 07/14/2020, Additional history exists Pneumococcal Vaccine: 65+ Years (2 of 2) 05/02/2024 05/02/2019, 06/01/2010 COLONOSCOPY-EVERY 5 YRS AGES 18-100 06/03/2025 06/03/2020, 06/03/2020, 03/17/2020, Additional history exists DTaP,Tdap,and Td Vaccines (3 - Td) 05/01/2027 05/01/2017, 05/26/2008 MENINGOCOCCAL (MENACTRA/MENVEO) Aged Out No longer eligible based on patient's age to complete this topic documented as of this encounter Implants Implanted Type Area Teacher Private Device Identifier Shelf Expiration Date Model / Serial / Lot [employer] Sure Clip Implanted:Qty: 2 on 06/03/2020 by Janis Hatch DO at OR [facility] Clip N/A: Colon 04/21/2022 [facility]-F-26-2 35-C-R / / [id number] documented as of this encounter Advance Directives Documents on File Type Date Recorded Patient Sat Tutor 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 04/01/2021 1:14 PM Advanced Directive Advanced Directive Latest Code Status on File Code Status Date Activated Date Inactivated Comments Full Code 03/31/2021 8:57 PM This order reflects the patients wishes [...]
--- OUTSIDE RECORDS SUMMARY | 2023-05-10 20:46 | External Medical Summary ---
Author Name Unknown Address Unknown Organization : Laboratory Report Ordering Provider Test Date Status MERRY OVIEDO 04/03/2021 07:38:57 Final Observation Date Value Abnormality Reference (Units ) Status Glucose Point of Care 04/03/2021 07:38:57 178 Above high normal 70-120 (mg/dL) Final Performing Location
--- OUTSIDE RECORDS SUMMARY | 2023-05-10 20:46 | External Medical Summary ---
Author Name Unknown Address Unknown Organization : Laboratory Report Ordering Provider Test Date Status MERRY OVIEDO 04/02/2021 21:18:44 Final Observation Date Value Abnormality Reference (Units ) Status Glucose Point of Care 04/02/2021 21:18:44 128 Above high normal 70-120 (mg/dL) Final Performing Location
--- OUTSIDE RECORDS SUMMARY | 2023-05-10 20:46 | External Medical Summary ---
Author Name Unknown Address Unknown Organization [id number]:LABORATORY [facility] - [address] [place] [address] Laboratory Report Ordering Provider Test Date Status BRONWYN PLATA 04/02/2021 12:48:00 Final Observation Date Value Abnormality Reference (Units ) Status WBC, Total 04/02/2021 12:48:00 2.87 Below low normal 4.00-10.80 (K/uL) Final RBC 04/02/2021 12:48:00 2.59 Below low normal 3.85-5.15 (M/uL) Final Hemoglobin 04/02/2021 12:48:00 7.8 Below low normal 12.0-15.3 (g/dL) Final HCT 04/02/2021 12:48:00 25.9 Below low normal 36.0-45.2 (%) Final MCV 04/02/2021 12:48:00 100.0 Above high normal 81.5-97.5 (fL) Final MCH 04/02/2021 12:48:00 30.1 27.0-34.0 (pg) Final MCHC 04/02/2021 12:48:00 30.1 Below low normal 32.0-36.0 (g/dL) Final RDW 04/02/2021 12:48:00 19.6 Above high normal 11.5-15.5 (%) Final MPV 04/02/2021 12:48:00 12.8 Above high normal 6.6-11.1 (fL) Final Nucleated erythrocytes/100 leukocytes [Ratio] in Blood by Automated count 04/02/2021 12:48:00 0 <=0 (/100 WBCs) Final Platelets 04/02/2021 12:48:00 75 Below low normal 140-400 (K/uL) Final Performing Location LABORATORY [facility] - [address] [place] [address]
--- OUTSIDE RECORDS SUMMARY | 2023-05-10 20:46 | External Medical Summary ---
Author Name Unknown Address Unknown Organization [id number]:[facility] [place] [address] [facility] [address] Laboratory Report Ordering Provider Test Date Status BRONWYN PLATA 04/03/2021 05:05:00 Final Observation Date Value Abnormality Reference (Units ) Status BUN 04/03/2021 05:05:00 10 6-20 (mg/dL) Final Creatinine 04/03/2021 05:05:00 0.5 0.5-1.0 (mg/dL) Final Glomerular filtration rate/1.73 sq M.predicted [Volume Rate/Area] in Serum, Plasma or Blood by Creatinine-based formula (CKD-EPI) 04/03/2021 05:05:00 >90.0 >=60.0 (mL/min) Final Performing Location [facility] - [address] [facility] [address]
--- OUTSIDE RECORDS SUMMARY | 2023-05-10 20:47 | External Medical Summary ---
Author Name Unknown Address Unknown Organization : Laboratory Report Ordering Provider Test Date Status MERRY OVIEDO 04/02/2021 11:40:38 Final Observation Date Value Abnormality Reference (Units ) Status Glucose Point of Care 04/02/2021 11:40:38 249 Above high normal 70-120 (mg/dL) Final Performing Location
--- OUTSIDE RECORDS SUMMARY | 2023-05-10 20:47 | External Medical Summary ---
Author Name Unknown Address Unknown Organization : Laboratory Report Ordering Provider Test Date Status MERRY OVIEDO 04/01/2021 12:23:39 Final Observation Date Value Abnormality Reference (Units ) Status Glucose Point of Care 04/01/2021 12:23:39 196 Above high normal 70-120 (mg/dL) Final Performing Location
--- OUTSIDE RECORDS SUMMARY | 2023-05-10 20:47 | External Medical Summary ---
Author Name Unknown Address Unknown Organization K01:[facility] [place] [address] [place] [address] Laboratory Report Ordering Provider Test Date Status ABHINAV ELKINS 04/02/2021 04:10:00 Final Observation Date Value Abnormality Reference (Units ) Status BUN 04/02/2021 04:10:00 10 6-20 (mg/dL) Final Creatinine 04/02/2021 04:10:00 0.7 0.5-1.0 (mg/dL) Final Glomerular filtration rate/1.73 sq M.predicted [Volume Rate/Area] in Serum, Plasma or Blood by Creatinine-based formula (CKD-EPI) 04/02/2021 04:10:00 >90.0 >=60.0 (mL/min) Final Performing Location [facility] [place] [address] [place] [address]
--- OUTSIDE RECORDS SUMMARY | 2023-05-10 20:47 | External Medical Summary ---
Author Name Unknown Address Unknown Organization : Laboratory Report Ordering Provider Test Date Status MERRY OVIEDO 04/02/2021 12:21:27 Final Observation Date Value Abnormality Reference (Units ) Status Glucose Point of Care 04/02/2021 12:21:27 234 Above high normal 70-120 (mg/dL) Final Performing Location
--- OUTSIDE RECORDS SUMMARY | 2023-05-10 20:47 | External Medical Summary ---
Author Name Unknown Address Unknown Organization K01:[facility] [place] [address] [place] [address] Laboratory Report Ordering Provider Test Date Status MARIE DEMARCODARRIAN 04/02/2021 08:51:00 Final Observation Date Value Abnormality Reference (Units ) Status Hemoglobin 04/02/2021 08:51:00 7.2 Below low normal 12 .0-15.3 (g/dL) Final Performing Location LABORATORY [facility] - [address] [place] [address]
--- OUTSIDE RECORDS SUMMARY | 2023-05-10 20:47 | External Medical Summary ---
Author Name Unknown Address Unknown Organization K01:LAB[facility]ATORY [facility] - [address] [facility] [address] Laboratory Report Ordering Provider Test Date Status GERRI DEMARCO 04/02/2021 08:51:00 Final Observation Date Value Abnormality Reference (Units ) Status HCT 04/02/2021 08:51:00 24.8 Below low normal 36. 0-45.2 (%) Final Performing Location LABORATORY [facility] - [address] [facility] [address]
--- OUTSIDE RECORDS SUMMARY | 2023-05-10 20:47 | External Medical Summary ---
Author Name UNSPECIFIED Address Unknown Organization [facility] History of Encounters Reason for Assessment: Resumption of car e (after inpatient stay) Inpatient discharge facility: Past 14 Da ys: Discharged From Short Stay Acute Hospital Most Recent Inpatient Discharge Date: Functional Assessment Patient Living Situation: Patient lives with other person(s) in the home: Around the clock Frequency Of Pain Interferin g With Patient's [...] ambulate or be up in a chair. Has Patient Had A Multi-fact or Fall Risk Assessment? No multi-factor falls risk assessment conducted Current: Management Of Oral Medications: Unable to take medication unless administered by another person Current: Management Of Injec table Medications: Able to take injectable medication(s) at the correct times if: (a) individual syringes are prepared in advance by another person; OR (b) another person develops a drug diary or chart. Procedures Therapies Received at Home: None Problems Primary Home Care Diagnosis ICD Code: K3 1.89, Other diseases of stomach and duodenum Home Care Diagnosis 1: ICD Code: K74.69, Other cirrhosis of liver Home Care Diagnosis 1: Severity Ratin Home Care Diagnosis 2: ICD Code: G80.9, Cerebral palsy, unspecified Home Care Diagnosis 2: Severity Ratin Home Care Diagnosis 3: ICD Code: I25.118 , Athscl heart disease of [place] cor art w oth ang pctrs Home Care Diagnosis 3: Severity Ratin Home Care Diagnosis 4: ICD Code: I11.0, Hypertensive heart disease with heart failure Home Care Diagnosis 4: Severity Ratin Home Care Diagnosis 5: ICD Code: I50.32, Chronic diastolic (congestive) heart failure Home Care Diagnosis 5: Severity Ratin Surgical wound: Yes, patient has at least one (observable) surgical wound
--- OUTSIDE RECORDS SUMMARY | 2023-05-10 20:47 | External Medical Summary ---
Author Name Unknown Address Unknown Organization : Laboratory Report Ordering Provider Test Date Status MERRY OVIEDO 04/01/2021 17:28:19 Final Observation Date Value Abnormality Reference (Units ) Status Glucose Point of Care 04/01/2021 17:28:19 121 Above high normal 70-120 (mg/dL) Final Performing Location
--- OUTSIDE RECORDS SUMMARY | 2023-05-10 20:47 | External Medical Summary ---
Author Name Unknown Address Unknown Organization K01:[facility] [place] [address] [place] [address] Laboratory Report Ordering Provider Test Date Status ABHINAV ELKINS 04/02/2021 04:10:00 Final Observation Date Value Abnormality Reference (Units ) Status WBC, Total 04/02/2021 04:10:00 2.63 Below low normal 4.00-10.80 (K/uL) Final RBC 04/02/2021 04:10:00 2.20 Below low normal 3.85-5.15 (M/uL) Final Hemoglobin 04/02/2021 04:10:00 6.6 Below lower panic limits 12.0-15.3 (g/dL) Final HCT 04/02/2021 04:10:00 23.1 Below low normal 36.0-45.2 (%) Final MCV 04/02/2021 04:10:00 105.0 Above high normal 81.5-97.5 (fL) Final MCH 04/02/2021 04:10:00 30.0 27.0-34.0 (pg) Final MCHC 04/02/2021 04:10:00 28.6 Below low normal 32.0-36.0 (g/dL) Final RDW 04/02/2021 04:10:00 19.2 Above high normal 11.5-15.5 (%) Final MPV 04/02/2021 04:10:00 12.9 Above high normal 6.6-11.1 (fL) Final Nucleated erythrocytes/100 leukocytes [Ratio] in Blood by Automated count 04/02/2021 04:10:00 0 <=0 (/100 WBCs) Final Platelets 04/02/2021 04:10:00 78 Below low normal 140-400 (K/uL) Final Performing Location [facility] [place] [address] [place] [address]
--- OUTSIDE RECORDS SUMMARY | 2023-05-10 20:47 | External Medical Summary ---
Author Name Unknown Address Unknown Organization K01:[facility] [address] [place] [address] Laboratory Report Ordering Provider Test Date Status GERRI DEMARCO 04/02/2021 04:10:00 Final Observation Date Value Abnormality Reference (Units ) Status Ferritin 04/02/2021 04:10:00 43 13-150 (ng /mL) Final Performing Location [facility] - [address] [place] [address]
--- OUTSIDE RECORDS SUMMARY | 2023-05-10 20:47 | External Medical Summary ---
Author Name Unknown Address Unknown Organization K01:[facility] - [address] [place] [address] Laboratory Report Ordering Provider Test Date Status GERRI DEMARCO 04/02/2021 04:10:00 Final Observation Date Value Abnormality Reference (Units ) Status Iron 04/02/2021 04:10:00 34 33-151 (ug/dL) Final Iron-binding capacity 04/02/2021 04:10:00 256 250-425 (ug/dL) Final Transferrin Sat % 04/02/2021 04:10:00 13 Below low normal 15-55 (%) Final Performing Location [facility] - [address] [place] [address]
--- OUTSIDE RECORDS SUMMARY | 2023-05-10 20:47 | External Medical Summary ---
Author Name Unknown Address Unknown Organization : Laboratory Report Ordering Provider Test Date Status MERRY OVIEDO 04/01/2021 08:38:37 Final Observation Date Value Abnormality Reference (Units ) Status Glucose Point of Care 04/01/2021 08:38:37 185 Above high normal 70-120 (mg/dL) Final Performing Location
--- OUTSIDE RECORDS SUMMARY | 2023-05-10 20:47 | External Medical Summary ---
Author Name Unknown Address Unknown Organization : Laboratory Report Ordering Provider Test Date Status MERRY OVIEDO 04/01/2021 21:23:20 Final Observation Date Value Abnormality Reference (Units ) Status Glucose Point of Care 04/01/2021 21:23:20 185 Above high normal 70-120 (mg/dL) Final Performing Location
--- OUTSIDE RECORDS SUMMARY | 2023-05-10 20:47 | External Medical Summary ---
Author Name Unknown Address Unknown Organization K01:[facility]ORY [facility] [place] [address] [place] [address] Laboratory Report Ordering Provider Test Date Status GERRI DEMARCO 04/01/2021 05:36:00 Final Observation Date Value Abnormality Reference (Units ) Status ABO 04/01/2021 05:36:00 A Final RH 04/01/2021 05:36:00 Positive Final RED BLOOD CELL ANTIBODY SCREEN 04/01/2021 05:36:00 Negative Final SPECIMEN EXPIRATION DATE 04/01/2021 05:36:00 04/04/2021 23:59 Final Performing Location [facility] - [address] [place] [address]
--- OUTSIDE RECORDS SUMMARY | 2023-05-10 20:47 | External Medical Summary ---
Author Name Unknown Address Unknown Organization : Laboratory Report Ordering Provider Test Date Status MERRY OVIEDO 04/02/2021 07:58:56 Final Observation Date Value Abnormality Reference (Units ) Status Glucose Point of Care 04/02/2021 07:58:56 227 Above high normal 70-120 (mg/dL) Final Performing Location
--- OUTSIDE RECORDS SUMMARY | 2023-05-10 20:47 | External Medical Summary ---
Author Name Unknown Address Unknown Organization [id number]:[facility] [place] - [address] [place] [address] Laboratory Report Ordering Provider Test Date Status MARIE DEMARCODARRIAN 04/01/2021 05:35:00 Final Observation Date Value Abnormality Reference (Units ) Status Hemoglobin 04/01/2021 05:35:00 7.5 Below low normal 12 .0-15.3 (g/dL) Final Performing Location [facility] - [address] [place] [address]
--- OUTSIDE RECORDS SUMMARY | 2023-05-10 20:48 | External Medical Summary ---
Author Name Unknown Address Unknown Organization K01:[facility] [place] [address] [facility] [place] [address] Laboratory Report Ordering Provider Test Date Status KYLE PASCAL 03/31/2021 16:17:51 Final Observation Date Value Abnormality Reference (Units ) Status Adenovirus DNA [Presence] in Nasopharynx by JANY with non-probe detection 03/31/2021 16:17:51 Negative Negative Final Human coronavirus 229E RNA [Presence] in Nasopharynx by JANY with non-probe detection 03/31/2021 16:17:51 Negative Negative Final Human coronavirus HKU1 RNA [Presence] in Nasopharynx by JANY with non-probe detection 03/31/2021 16:17:51 Negative Negative Final Human coronavirus NL63 RNA [Presence] in Nasopharynx by JANY with non-probe detection 03/31/2021 16:17:51 Negative Negative Final Human coronavirus OC43 RNA [Presence] in Nasopharynx by JANY with non-probe detection 03/31/2021 16:17:51 Negative Negative Final SARS-CoV-2 (COVID-19) RNA [Presence] in Nasopharynx by JANY with non-probe detection 03/31/2021 16:17:51 Negative Negative Final Human metapneumovirus RNA [Presence] in Nasopharynx by JANY with non-probe detection 03/31/2021 16:17:51 Negative Negative Final Rhinovirus+Enterovirus RNA [Presence] in Nasopharynx by JANY with non-probe detection 03/31/2021 16:17:51 Negative Negative Final Influenza virus A RNA [Presence] in Nasopharynx by JANY with non-probe detection 03/31/2021 16:17:51 Negative Negative Final Influenza virus B RNA [Presence] in Nasopharynx by JANY with non-probe detection 03/31/2021 16:17:51 Negative Negative Final Parainfluenza virus 1 RNA [Presence] in Nasopharynx by JANY with non-probe detection 03/31/2021 16:17:51 Negative Negative Final Parainfluenza virus 2 RNA [Presence] in Nasopharynx by JANY with non-probe detection 03/31/2021 16:17:51 Negative Negative Final Parainfluenza virus 3 RNA [Presence] in Nasopharynx by JANY with non-probe detection 03/31/2021 16:17:51 Negative Negative Final Parainfluenza virus 4 RNA [Presence] in Nasopharynx by JANY with non-probe detection 03/31/2021 16:17:51 Negative Negative Final Respiratory syncytial virus RNA [Presence] in Nasopharynx by JANY with non-probe detection 03/31/2021 16:17:51 Negative Negative Final Bordetella pertussis.pertussis toxin promoter region [Presence] in Nasopharynx by JANY with non-probe detection 03/31/2021 16:17:51 Negative Negative Final Chlamydophila pneumoniae DNA [Presence] in Nasopharynx by JANY with non-probe detection 03/31/2021 16:17:51 Negative Negative Final Mycoplasma pneumoniae DNA [Presence] in Nasopharynx by JANY with non-probe detection 03/31/2021 16:17:51 Negative Negative Final Bordetella parapertussis [id number] DNA [Presence] in Nasopharynx by JANY with non-probe detection 03/31/2021 16:17:51 Negative Negative Final Performing Location [facility] [place] [address] [facility] [address]
--- OUTSIDE RECORDS SUMMARY | 2023-05-10 20:48 | External Medical Summary ---
Author Name Unknown Address Unknown Organization K01:[facility] [facility] [place] [address] [facility] [address] Laboratory Report Ordering Provider Test Date Status GERRI DEMARCO 04/01/2021 05:35:00 Final Observation Date Value Abnormality Reference (Units ) Status HCT 04/01/2021 05:35:00 25.4 Below low normal 36. 0-45.2 (%) Final Performing Location [facility] - [address] [facility] [address]
--- OUTSIDE RECORDS SUMMARY | 2023-05-10 20:48 | External Medical Summary ---
Author Name Unknown Address Unknown Organization K01:[facility] [place] [address] [place] [address] Laboratory Report Ordering Provider Test Date Status ABHINAV ELKINS 04/01/2021 03:56:00 Final Observation Date Value Abnormality Reference (Units ) Status Vitamin B12 04/01/2021 03:56:00 1059 232-1,24 5 (pg/mL) Final Performing Location [facility] - [address] [place] [address]
--- OUTSIDE RECORDS SUMMARY | 2023-05-10 20:48 | External Medical Summary ---
Author Name Unknown Address Unknown Organization K01:[facility] [place] - [address] [place] [address] Laboratory Report Ordering Provider Test Date Status GERRI DEMARCO 03/31/2021 21:45:00 Final Observation Date Value Abnormality Reference (Units ) Status Bacteria identified in Unspecified specimen by Culture 03/31/2021 21:45:00 No growth Final Performing Location [facility] - [address] [place] [address]
--- OUTSIDE RECORDS SUMMARY | 2023-05-10 20:48 | External Medical Summary ---
Author Name Unknown Address Unknown Organization K01:[facility] [place] [address] [place] [address] Laboratory Report Ordering Provider Test Date Status GERRI DEMARCO 04/01/2021 03:56:00 Final Observation Date Value Abnormality Reference (Units ) Status WBC, Total 04/01/2021 03:56:00 3.15 Below low normal 4.00-10.80 (K/uL) Final RBC 04/01/2021 03:56:00 2.28 Below low normal 3.85-5.15 (M/uL) Final Hemoglobin 04/01/2021 03:56:00 6.9 Below lower panic limits 12.0-15.3 (g/dL) Final HCT 04/01/2021 03:56:00 23.3 Below low normal 36.0-45.2 (%) Final MCV 04/01/2021 03:56:00 102.2 Above high normal 81.5-97.5 (fL) Final MCH 04/01/2021 03:56:00 30.3 27.0-34.0 (pg) Final MCHC 04/01/2021 03:56:00 29.6 Below low normal 32.0-36.0 (g/dL) Final RDW 04/01/2021 03:56:00 19.1 Above high normal 11.5-15.5 (%) Final MPV 04/01/2021 03:56:00 13.0 Above high normal 6.6-11.1 (fL) Final Nucleated erythrocytes/100 leukocytes [Ratio] in Blood by Automated count 04/01/2021 03:56:00 0 <=0 (/100 WBCs) Final Platelets 04/01/2021 03:56:00 77 Below low normal 140-400 (K/uL) Final Performing Location [facility] [place] [address] [place] [address]
--- OUTSIDE RECORDS SUMMARY | 2023-05-10 20:48 | External Medical Summary ---
Author Name Unknown Address Unknown Organization K01:[facility] [place] [address] [place] [address] Laboratory Report Ordering Provider Test Date Status ABHINAV ELKINS 04/01/2021 03:56:00 Final Observation Date Value Abnormality Reference (Units ) Status Folic Acid 04/01/2021 03:56:00 13.3 >4.5 (ng/ mL) Final Performing Location [facility] - [address] [place] [address]
--- OUTSIDE RECORDS SUMMARY | 2023-05-10 20:48 | External Medical Summary ---
Author Name Unknown Address Unknown Organization K01:[facility] [place] - [address] [place] [address] Laboratory Report Ordering Provider Test Date Status GERRI DEMARCO 04/01/2021 03:56:00 Final Observation Date Value Abnormality Reference (Units ) Status BUN 04/01/2021 03:56:00 9 6-20 (mg/dL) Final Creatinine 04/01/2021 03:56:00 0.5 0.5-1.0 (mg/dL) Final Glomerular filtration rate/1.73 sq M.predicted [Volume Rate/Area] in Serum, Plasma or Blood by Creatinine-based formula (CKD-EPI) 04/01/2021 03:56:00 >90.0 >=60.0 (mL/min) Final Performing Location [facility] [place] - [address] [place] [address]
--- OUTSIDE RECORDS SUMMARY | 2023-05-10 20:48 | External Medical Summary ---
Author Name Unknown Address Unknown Organization K01:[facility] - [address] [place] [address] Laboratory Report Ordering Provider Test Date Status RAMA DEMARCORonald 04/01/2021 00:14:28 Final Observation Date Value Abnormality Reference (Units ) Status Bacteria identified in Unspecified specimen by Culture 04/01/2021 00:14:28 [id number]^STAPHY LOCOCCUS AUREUS Abnormal Final Performing Location [facility] - [address] [place] [address] Ordering Provider Test Date Status MARIE DEMARCODARRIAN 04/01/2021 00:14:28 Final Observation Date Value Abnormality Reference (Units ) Status Nitrofurantoin susceptibility 04/01/2021 00:14:28 <=16 Susceptible Final Oxacillinsusceptibility 04/01/2021 00:14:28 >=4 Resistant Final Performing Location [facility] [place] [address] [facility] [address]
--- OUTSIDE RECORDS SUMMARY | 2023-05-10 20:48 | External Medical Summary ---
Author Name Unknown Address Unknown Organization K01:[facility] [place] - [address] [place] [address] Laboratory Report Ordering Provider Test Date Status GERRI DEMARCO 03/31/2021 21:45:00 Final Observation Date Value Abnormality Reference (Units ) Status Bacteria identified in Unspecified specimen by Culture 03/31/2021 21:45:00 No growth Final Performing Location LAB[facility]ORY [facility] - [address] [place] [address]
--- OUTSIDE RECORDS SUMMARY | 2023-05-10 20:49 | External Medical Summary ---
Author Name Unknown Address Unknown Organization K01:[facility] [place] [address] [place] [address] Laboratory Report Ordering Provider Test Date Status GALA RODARTE 03/31/2021 14:25:00 Final Observation Date Value Abnormality Reference (Units ) Status BUN 03/31/2021 14:25:00 10 6-20 (mg/dL) Final Creatinine 03/31/2021 14:25:00 0.6 0.5-1.0 (mg/dL) Final Glomerular filtration rate/1.73 sq M.predicted [Volume Rate/Area] in Serum, Plasma or Blood by Creatinine-based formula (CKD-EPI) 03/31/2021 14:25:00 >90.0 >=60.0 (mL/min) Final Performing Location [facility] [place] [address] [facility] [address]
--- OUTSIDE RECORDS SUMMARY | 2023-05-10 20:49 | External Medical Summary | Summary of Care ---
Author Name Unknown Organization [place] [address] Care Team Providers Care Medication Specialist Name Role Phone Vanita Dunn MD Primary Care Provid er Reason for Visit * Reason Onset Date Comments Hospital Follow-Up 03/25/2021 Hem/onc Disch arge Encounter Details Date Type Department Care Team Description 03/25/2021 Telephone Hematology/Oncology Treatment, [address] [id number] Tono Pichardo MD [address] [place] [address] [phone] Hospital Follow-Up (Hem/onc Discharge) Allergies Active Allergy Reactions Severity Noted Date Comments Adhesive Tape Itching 04/29/2020 Penicillins Rash 02/12/2008 Perflutren Protein A Microsph 2019 Definity-lower back pain documented as of this encounter (statuses as of 03/31/2021) Medications Medication Sig Dispensed Refills Start Date [...] 120 Vial 11 10/02/2019 Active nystatin (NYSTOP) 558240 UNIT/GM powder Apply topically to affected area [...] 60 Each 3 07/27/2020 Active Dexcom G6 Marine Structural Welder Device Use as directed. To test blood [...] One daily 90 Tab 1 09/19/2020 Active Lidocaine-Prilocai ne 2.5-2.5 % External Cream (Emla)Indications: Iron deficiency anemia due to chronic blood loss,Pancytopenia (HCC) Apply topically to affected area as needed for Other (for port). APPLY TO SKIN OVER MEDIPORT & COVER 1HR PRIOR TO ACCESSING. 30 g 3 10/09/2020 Active OneTouch Verio In Vitro Strip (Glucose Blood) TESTING once daily 100 Strip 3 10/29/2020 Active OneTouch Delica Plus [id number] TESTING once daily 100 Each 3 10/29/2020 [...] less than 7.0% ([facility]) Use to inject insulin four times daily; E11.42 400 Each 3 12/05/2020 Active Fluticasone Propionate 50 MCG/ACT Nasal Suspension (Flonase)Indicatio ns:Sinus congestion USE 2 SPRAYS IN EACH NOSTRIL ONCE DAILY as directed 16 g 5 12/23/2020 Active Additional Information Patient taking differently: 2 [place] Nasal DAILY PRN, Congestion, Informant: Pharmacy, Reported [...] TWICE DAILY 180 Tab 1 12/29/2020 Active Trulicity 4.5 MG/0.5ML Subcutaneous Solution Pen-injector (Dulaglutide) Inject one pen (4.5mg) under the skin once a week 6 mL 3 01/25/2021 Active Cinnamon 500 MG Oral Capsule Take 500 mg by mouth daily. 0 Active Spironolactone 25 MG Oral Tablet (Aldactone) Take 0.5 Tabs by mouth daily. 30 Tab 5 03/03/2021 Active Furosemide 40 MG Oral Tablet (Lasix) Take [...] than 7.0% ([facility]) inject 32 units under skin at bedtime 30 mL 3 03/24/2021 Active Insulin Aspart 100 UNIT/ML Subcutaneous Solution (NovoLOG) Inject 6 Units under the skin three times a day before meals. 30 mL 3 03/24/2021 Active Lactulose 20 GM/30ML Oral Solution (Constulose) Take 67.5 mL by mouth 3 times a day. Titrate to have 3 to 4 bowel movement every day. 2700 mL 2 02/09/2021 Discontinue d(Refill) traMADol HCl 50 MG Oral Tablet (Ultram)Indication s:Abdominal pain, left lower quadrant Take 1 Tab by mouth every 6 hours as needed for Pain, Moderate. 30 Tab 0 02/15/2021 1 Discontinue d(Refill) documented as of this encounter (statuses as of 03/31/2021) Active Problems Problem Noted Date Lactic acidosis [...] 19 History of Achilles tendon repair 2018 Acute on chronic anemia 04/08/2019 Fibromyalgia 04/08/2019 Achilles tendinitis, right leg [...] 05/07/2012 NG (nonalcoholic steatohepatitis) 04/12 Hyperglycemia 05/02/2012 HTN, goal below 140/90 03/27/2012 Chronic rhinitis 03/27/2012 Urinary tract infection 01/27/2012 Cerebral palsy 01/24/2012 Spinal stenosis of lumbar region without neurogenic claudication 12/27/2010 Venous insufficiency 01/09/2009 DDD (degenerative disc disease), lumbar Dyslipidemia, goal LDL below 70 documented as of this encounter (statuses as of 03/31/2021) Resolved Problems Problem Noted Date Resolved Date [...] 07/02/2014 Diverticulosis of colon 05/02/2012 02/14/20 18 Obstipation 05/02/2012 03/28/2017 Internal hemorrhoids 04/12/2012 07/02/2014 Migraine variant, intractable [...] pain 01/24/2012 01/17/2017 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 (5 years old or older No 03/22/2021 documented as of this encounter Miscellaneous Notes * Telephone Encounter - Lucero Wang OSA - 03/31/2021 11:23 AM EDT Called X2 and lmom for patient to give us a call to get scheduled for "Monoferric" ([place]). Left number of [phone] Option 1. * Telephone Encounter - Lucero Wang OSA - 03/29/2021 11:04 AM EDT Called and lmom for patient to give us a call to get rescheduled for "Monoferric" (Pichardo) 2 hr. * Telephone Encounter - Francine Okeefe RN - 03/25/2021 2:13 PM EDT Patient admitted at [facility] from 03/21-03/24 with abdominal pain and uncontrolled [...] Description 04/05/2021 Office Visit [place] Medicine [place] [address] [place] [address] [phone] 04/07/2021 Office Visit Pharmacy [place], [facility] [address] [place] [address] [phone] 04/09/2021 Immunization/Injection Hematology Oncolog y Nurse, Med [address] [facility] [place] [address] [phone] 04/16/2021 Office Visit Podiatry Prakash Martino DPM [address] [place] [address] [phone] 04/29/2021 Telemedicine Palliative Medicine Esperanza Painter MD [address] [place], [place] [address], [place] [address] [phone] 04/29/2021 Appointment Radiology 05/11/2021 Office Visit Gastroenterology Sergei Pichardo P, DO [address] [place] [address] [phone] 06/07/2021 Nutrition Services Gastroenterology Melissa Omalley, [place] [address] [place] [address] [facility] [place] [address] [phone] 07/06/2021 Office Visit Hematology Oncology Tono Pichardo MD [address] [place] [address] [phone] 07/27/2021 Office Visit Gastroenterology Lyssa Stout CRNP [address] [place] [address] [phone] 09/09/2021 Imaging Radiology Health Maintenance Due Date [...] 09/02/2019, 04/04/2018, Additional history exists Yearly B-12 03/21/2022 03/21/2021, 1111/2019, 04/25/2020, Additional history exists DIABETES-URINE MICROALBUMIN EVERY 12 MONTHS 03/22/2022 03/22/2021, 03/07/2021, 02/04/2021, Additional history exists Pneumococcal Vaccine: 65+ Years (2 of 2) 05/02/2024 05/02/2019, 06/01/2010 COLONOSCOPY-EVERY 5 YRS AGES 18-100 06/03/2025 06/03/2020, 06/03/2020, 03/17/2020, Additional history exists DTaP,Tdap,and Td Vaccines (3 - Td) 05/01/2027 05/01/2017, 05/26/2008 MENINGOCOCCAL (MENACTRA/MENVEO) Aged Out No longer eligible based on patient's age to complete this topic documented as of this encounter Implants Implanted Type Area Supervisor Engine Repair Device Identifier Shelf Expiration Date Model / Serial / Lot [employer] Sure Clip Implanted:Qty: 2 on 06/03/2020 by Janis Hatch DO at OR H Clip N/A: Colon 04/21/2022 [facility]-F-26-2 35-C-R / / [id number] documented as of this encounter Advance Directives Documents on File Type Date Recorded Patient 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 Full Code 01/30/2021 10:59 PM 02/02/2021 7:01 PM This order reflects the patients wishes and were consensually agreed upon. Discussion of Advance Directives occurred with: Patient Does the patient have a Living Will? No Does the patient have Health Care Power of Attor elsie? No Healthcare Agents on File Name Relationship Healthcare Agent [facility] p Communication Syed Bustos Spouse Emergency Contact
--- OUTSIDE RECORDS SUMMARY | 2023-05-10 20:49 | External Medical Summary | Summary of Care ---
Author Name Unknown Organization [facility] Address [place] [address] Care Team Providers Care Educational Audiologist Name Role Phone Vanita Dunn MD Primary Care Provid er Encounter Details Date Type Department Care Team Description 03/30/2021 Library Services CoordinatorSenior Quality Methods [facility]istSt. 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 To test [...] One daily 90 Tab 1 09/19/2020 Active Lidocaine-Prilocain e 2.5-2.5 % External Cream (Emla)Indications:I roshan deficiency anemia due to chronic blood loss,Pancytopenia (HCC) Apply topically to affected area as needed for Other (for port). APPLY TO SKIN OVER MEDIPORT & COVER 1HR PRIOR TO ACCESSING. 30 g 3 10/09/2020 Active OneTouch Verio In Vitro Strip (Glucose Blood) TESTING once daily 100 Strip 3 10/29/2020 Active OneTouch Delica Plus [id number] TESTING once daily 100 Each 3 10/29/2020 [...] Active Additional Information Patient taking differently: 2 [place] Nasal DAILY PRN, Congestion, Informant: Pharmacy, Reported [...] than 7.0% ([facility]) inject 32 units under skin at [...] days. 60 Tab 0 03/29/2021 04/28/2021 Active documented as of this encounter (statuses as of 03/30/2021) Active Problems Problem Noted Date Lactic acidosis [...] weakness 04/04/2019 Pancytopenia 02/21/2019 Wheelchair dependent 12/21/2018 BESSIE on CPAP 12/26/2017 Cirrhosis of liver 11/20/2017 [...] as of this encounter (statuses as of 03/30/2021) Resolved Problems Problem Noted Date Resolved Date [...] 04/23/2015 03/28/2017 Candidal vulvovaginitis 02/12/2015 06/07/20 16 BESSIE (obstructive sleep apnea) 02/09/2015 Leg weakness, bilateral [...] pain 01/24/2012 01/17/2017 Genetic Sleep Disorder Research Other*[id number] 05/13/2011 04/07/2016 Obstructive sleep apnea 01/18/2011 12/27/19 [...] as of this encounter (statuses as of 03/30/2021) Immunizations Name Administration Dates Next Due COVID-19 [...] No 03/22/2021 documented as of this encounter Progress Notes * Connie Arguello, UMA - 03/30/2021 9:16 AM EDT Case Management Assessment-Met with patient & her Syed in the clinic on 03/29/21, patient s/[place] [facility] [place] with chest & abdominal pain, work up completed, blood sugar was in the 400's in the ER, patient started on an Insulin infusion, Endocrinology was consulted, her blood sugars became better controlled with IV insulin & she was transitioned to basal basal bolus regimen, patient discharged home with home health on 03/24/21 HX: CP, cirrhosis with esophageal varices, portal gastropathy, DM, peripheral neuropathy, hypothyroidism, Bessie on BiPAP at night, asthma, morbid obesity, chronic iron deficiency anemia Is this call for a hospital, [place] [facility] or rehab facility discharge to home? No, follow up S: Reports:Patient denies SOB , cough Has a fair appetite, denies urinary complaints Having bowel movements, taking Lactulose as prescribed most days, cut back on the dosage when she has appointments Patient says her stomach is sore at times, not new for her No skin issues, sleeping okay at night Blood sugars running 190 with some 300's Patient remains wheelchair bound O: Phone visit for post hospitalization. Medications: went over adjustments to Insulin orders, patient continues to get pill packs and takesall medications as prescribed. Does this patient qualify for an annual wellness visit? No A: Patient Centered Prioritized Goals: get blood sugars under better control, get A1C below 8, take medications as prescribed, have 3-4 bowel movements a day, stay safe in her home, prevent readmission Co-morbid conditions identified and managed. Patient/ caregiver demonstrates adherence to treatment plan. Identified Barriers: Non Adherence to prescribed treatment plan FUNCTIONAL STATUS: (Definition - assess ability to patient to manage their own care, includes evaluation of activities of daily living, and instrumental activities of daily living, and cognitive abilities status) ADL'S - Needs Assistance With: All ADL's as pt is completely dependent IADL'S - Needs Assistance With: Grocery Shopping, Cooking food, Routine Housework, Using telephone, Taking medications, Attending to safety and Managing money Cognitive and Mental Health: denies problems, alert and oriented x 3 and able to communicate, understand instructions, process information. P: Library Services Coordinator Interventions: Encouraged patient to call with increased SOB, cough, fever, chills,increased pain --Constipation: Increase activity Drink plenty of fluids Eat more fiber, fresh fruits and vegetables Consider Miralax daily Avoid harsh laxatives Call with any abdominal pain, cramping, fever or chills Reinforced sodium restriction Reinforced CHO consistency Reinforced safety education / fall prevention Reinforced medication regimen - timing / dosing / purpose Encouraged patient to call upper caser with any questions/concerns at [phone]. Office Hours: Mon- 8-8 pm, Monday 8-5 pm, [facility] weekend clinic hours: Saturdays 8-5, Sundays 8-5 PCP Notified of enrollment in CM/HM program: Yes SNP Member? No Re-evaluation of plan of care and progress towards goals achievement: Plan to call patient next week to reassess and update plan of care, verbalizes understanding and agrees with plan. Connie Arguello RN Outpatient Library Services Coordinator documented in this encounter Plan of Treatment Upcoming Encounters Date Type Specialty Care Team Description 04/05/2021 Office Visit Family Medicine Brianne Pal PA-Niya [address] [place] [address] [phone] 04/07/2021 Office Visit Pharmacy [facility] [address] [place] [address] [phone] 04/09/2021 Immunization/Injection Hematology Oncolog y Nurse, Med [address] [place] [address] [phone] 04/16/2021 Office Visit Podiatry Prakash Martino, SIRENA [address] [place], [place] [id number] 04/29/2021 Telemedicine Palliative Medicine Esperanza Painter MD [address] [place] [address] 04/29/2021 Appointment Radiology 05/11/2021 Office Visit Gastroenterology Sergei Sanchez P, DO [address] [place] [address] [phone] 06/07/2021 Nutrition Services Gastroenterology Melissa Omalley RDN [address] [address] 07/06/2021 Office Visit Hematology Oncology Tono Sanchez MD [address] [facility] [place] [address] [phone] 07/27/2021 Office Visit [facility]enterology [facility]sa Stout CRNP [address] [facility] [place] [address] [phone] 09/09/2021 Imaging Radiology Health Maintenance Due Date [...] Additional history exists Yearly B-12 03/21/2022 03/21/2021, 11/11/2019, 04/25/2020, Additional history exists DIABETES-URINE MICROALBUMIN EVERY [...] this encounter Implants Implanted Type Area [employer] Device Identifier Shelf Expiration Date Model / Serial / Lot Microtech Sure Clip Implanted:Qty: 2 on 06/03/2020 by Janis Hatch DO at OR [facility] Clip N/A: Colon 04/21/2022 [facility]-F-[id number] 35-C-R / / [id number] documented as of this encounter Visit Diagnoses Diagnosis Type 2 diabetes mellitus with hemoglobin A1c goal of less than 7.0% (HCC)- Primary documented in this encounter Advance Directives Documents on File Type Date Recorded Patient Slicer Machine Operator Expl 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
--- OUTSIDE RECORDS SUMMARY | 2023-05-10 20:49 | External Medical Summary ---
Author Name Unknown Address Unknown Organization [id number]:[facility] [place] [address] [place] [address] Laboratory Report Ordering Provider Test Date Status GALA RODARTE 03/31/2021 14:25:00 Final Observation Date Value Abnormality Reference (Units ) Status Lipase 03/31/2021 14:25:00 15 13-60 (U/L ) Final Performing Location LAB[facility]ATORY [facility] - [address] [place] [address]
--- OUTSIDE RECORDS SUMMARY | 2023-05-10 20:49 | External Medical Summary ---
Author Name Unknown Address Unknown Organization [id number]:[facility] [place] [address] [place] [address] Laboratory Report Ordering Provider Test Date Status KYLE PASCAL 03/31/2021 14:57:00 Final Observation Date Value Abnormality Reference (Units ) Status PT 03/31/2021 14:57:00 16.3 Above high normal 11 .5-14.6 (seconds) Final INR 03/31/2021 14:57:00 1.29 Above high normal 0. 84-1.14 Final Performing Location [facility] [place] [address] [place] [address]
--- OUTSIDE RECORDS SUMMARY | 2023-05-10 20:49 | External Medical Summary ---
Author Name Unknown Address Unknown Organization [id number]:[facility] [place] [address] [place] [address] Laboratory Report Ordering Provider Test Date Status GALA RODARTE 03/31/2021 14:25:00 Final Observation Date Value Abnormality Reference (Units ) Status Albumin 03/31/2021 14:25:00 3.1 Below low normal 3.8-5.0 (g/dL) Final AST (Aspartate aminotransferase) 03/31/2021 14:25:00 53 Above high normal 10-35 (U/L) Final Alk Phos 03/31/2021 14:25:00 174 Above high normal 35-130 (U/L) Final ALT (Alanine aminotransferase) 03/31/2021 14:25:00 33 10-35 (U/L) Final Bilirubin, Total 03/31/2021 14:25:00 1.0 <=1.2 (mg/dL) Final Bilirubin, Direct 03/31/2021 14:25:00 0.5 Above high normal 0.0-0.3 (mg/dL) Final Protein 03/31/2021 14:25:00 7.0 6.0-8.3 (g/dL) Final Performing Location [facility]ATORY [facility] [place] - [address] [place] [address]
--- OUTSIDE RECORDS SUMMARY | 2023-05-10 20:49 | External Medical Summary ---
Author Name Unknown Address Unknown Organization [id number]:[facility] [place] - [address] [place] [address] Laboratory Report Ordering Provider Test Date Status GALA RODARTE 03/31/2021 14:25:00 Final Observation Date Value Abnormality Reference (Units ) Status WBC, Total 03/31/2021 14:25:00 4.71 4.00-10.80 (K/uL) Final RBC 03/31/2021 14:25:00 2.68 Below low normal 3.85-5.15 (M/uL) Final Hemoglobin 03/31/2021 14:25:00 8.2 Below low normal 12.0-15.3 (g/dL) Final HCT 03/31/2021 14:25:00 27.5 Below low normal 36.0-45.2 (%) Final MCV 03/31/2021 14:25:00 102.6 Above high normal 81.5-97.5 (fL) Final MCH 03/31/2021 14:25:00 30.6 27.0-34.0 (pg) Final MCHC 03/31/2021 14:25:00 29.8 Below low normal 32.0-36.0 (g/dL) Final RDW 03/31/2021 14:25:00 19.3 Above high normal 11.5-15.5 (%) Final MPV 03/31/2021 14:25:00 13.4 Above high normal 6.6-11.1 (fL) Final Nucleated erythrocytes/100 leukocytes [Ratio] in Blood by Automated count 03/31/2021 14:25:00 0 <=0 (/100 WBCs) Final Platelets 03/31/2021 14:25:00 105 Below low normal 140-400 (K/uL) Final Performing Location LABORATORY [facility] [place] - [address] [place] [address]
--- OUTSIDE RECORDS SUMMARY | 2023-05-10 20:49 | External Medical Summary ---
Author Name Unknown Address Unknown Organization K01:[facility]ORY [facility] [place] - [address] [facility] [place] [address] Laboratory Report Ordering Provider Test Date Status GALA RODARTE 03/31/2021 14:25:00 Final Observation Date Value Abnormality Reference (Units ) Status SYNC LEUKOCYTES IN BLOOD BY AUTOMATED COUNT 03/31/2021 14:25:00 4.71 4.00-10.80 (K/uL) Final Segs 03/31/2021 14:25:00 58.7 40.0-75.0 (%) Final Lymphs % 03/31/2021 14:25:00 21.7 18.0-42.0 (%) Final Monos 03/31/2021 14:25:00 11.3 Above high normal 1.0-11.0 (%) Final Eosinophils 03/31/2021 14:25:00 6.8 Above high normal 0.0-6.0 (%) Final Basos 03/31/2021 14:25:00 1.3 0.0-2.0 (%) Final Immature Granulocyte, Percent 03/31/2021 14:25:00 0.2 0.0-2.0 (%) Final Absolute Segs 03/31/2021 14:25:00 2.77 1.80-7.70 (K/uL) Final Lymphs, absolute 03/31/2021 14:25:00 1.02 1.00-4.80 (K/ul) Final Monos, Abs 03/31/2021 14:25:00 0.53 0.00-1.10 (K/uL) Final Eos, Abs 03/31/2021 14:25:00 0.32 0.00-0.70 (K/uL) Final Basos, Abs 03/31/2021 14:25:00 0.06 0.00-0.20 (K/uL) Final Immature Granulocytes, Number 03/31/2021 14:25:00 0.01 0.00-0.20 (K/uL) Final Performing Location LABORATORY [facility] [place] - [facility] [address] [facility] [address]
--- OUTSIDE RECORDS SUMMARY | 2023-05-10 20:49 | External Medical Summary ---
Author Name Unknown Address Unknown Organization K01[place] [place] [address] [facility] [place] [address] Laboratory Report Ordering Provider Test Date Status GALA RODARTE 03/31/2021 15:10:01 Final Observation Date Value Abnormality Reference (Units) Status Color of Urine by Auto 03/31/2021 15:10:01 Yellow Colorless, Light Yellow, Yellow, Dark Yellow Final Clarity, Urine 03/31/2021 15:10:01 Slightly Cloudy Abnormal Clear Final Glucose [Mass/volume] in Urine by Automated test strip 03/31/2021 15:10:01 Negative Negative (mg/dL) Final Bilirubin.total [Presence] in Urine by Automated test strip 03/31/2021 15:10:01 Negative Negative Final Ketones [Mass/volume] in Urine by Automated test strip 03/31/2021 15:10:01 Trace Abnormal Negative (mg/dL) Final Specific gravity, Urine 03/31/2021 15:10:01 1.031 Above high normal 1.003-1.030 Final Hemoglobin [Presence] in Urine by Automated test strip 03/31/2021 15:10:01 Large Abnormal Negative Final pH, Urine 03/31/2021 15:10:01 6.0 5.0-7.5 (Units) Final Protein [Mass/volume] in Urine by Automated test strip 03/31/2021 15:10:01 30 Abnormal Negative (mg/dL) Final Urobilinogen [Mass/volume] in Urine by Automated test strip 03/31/2021 15:10:01 2.0 Abnormal Normal (mg/dL) Final Nitrite [Presence] in Urine by Automated test strip 03/31/2021 15:10:01 Positive Abnormal Negative Final Leukocyte esterase [Presence] in Urine by Automated test strip 03/31/2021 15:10:01 Large Abnormal Negative Final RBC, Urine 03/31/2021 15:10:01 30-49 Abnormal 0-2 (/HPF) Final WBC, Urine 03/31/2021 15:10:01 50+ Abnormal 0-2 (/HPF) Final Bacteria [#/area] in Urine sediment by Microscopy high power field 03/31/2021 15:10:01 >200 Abnormal 0-25 (/HPF) Final Calcium oxalate crystals [#/area] in Urine sediment by Microscopy high power field 03/31/2021 15:10:01 1-4 Abnormal None (/HPF) Final Performing Location [facility] [place] [address] [facility] [address]
--- OUTSIDE RECORDS SUMMARY | 2023-05-10 20:49 | External Medical Summary | Summary of Care ---
Author Name Unknown Organization [facility] Address [place] [address] Care Team Providers Care Reclamation Engineer Name Role Phone Vanita Dunn MD Primary Care Provid er Reason for Visit * Reason Onset Date Comments Follow Up 03/31/2021 Encounter Details Date Type Department Care Team Description 03/31/2021 Pipe Line Inspector Telephone [facility] [address] [place] [address] Connie Arguello, RN [address] [place] [address] Follow Up Allergies Active Allergy [...] 120 Vial 11 10/02/2019 Active nystatin (NYSTOP) 700981 UNIT/GM powder Apply topically to affected area [...] 60 Each 3 07/27/2020 Active Dexcom G6 Cloth Washer Back Tender Device Use as directed. To test [...] Strip 3 10/29/2020 Active OneTouch Delica Plus [id number] TESTING once daily 100 Each 3 10/29/2020 [...] goal of less than 7.0% ([facility]) Use to inject insulin four times daily; E11.42 400 Each 3 12/05/2020 Active Fluticasone Propionate 50 MCG/ACT Nasal Suspension (Flonase)Indication s:Sinus congestion USE 2 SPRAYS IN EACH NOSTRIL ONCE DAILY as directed 16 g 5 12/23/2020 Active Additional Information Patient taking differently: 2 [place] Nasal DAILY PRN, Congestion, Informant: Pharmacy, Reported [...] pain 01/24/2012 01/17/2017 Genetic Sleep Disorder Research Other*[id number] 05/13/2011 04/07/2016 Obstructive sleep apnea 01/18/2011 12/27/19 [...] Telephone Encounter - Connie Arguello RN - 03/31/2021 11:46 AM EDT See previous telephone encounters, talked to Dr. Carter about patient's complaints, it was determined that patient needs to go to the ER if she is having severe pain Connie Arguello RN documented in this encounter Plan of Treatment Upcoming Encounters Date Type Specialty Care Team Description 04/05/2021 Office Visit Family Medicine Brianne Pal PA-C [address] [place] [address] [phone] 04/07/2021 [facility] [address] [place] [address] [phone] 04/09/2021 Immunization/Injection Hematology Oncolog y Nurse, Med [address] [place] [address] [phone] 04/16/2021 Office Visit Podiatry Prakash Martino, DPBelen [address] [place], [place] [id number] 04/29/2021 Telemedicine Palliative Medicine Esperanza Painter MD [address] [place] [address] [phone] 04/29/2021 Appointment Radiology 05/11/2021 Office Visit Gastroenterology Sergei Sanchez P, DO [address] [place] [address] 06/07/2021 Nutrition Services Gastroenterology Melissa Omalley RDN [address] [facility] [address] [place] [address] [phone] 07/06/2021 Office Visit Hematology Oncology Tono Sanchez MD [address] [facility] [place] [address] [phone] 07/27/2021 Office Visit Gastroenterology Lyssa Stout CRNP [address] [place] [address] [phone] 09/09/2021 Imaging Radiology Health Maintenance Due Date [...] Additional history exists Yearly B-12 03/21/2022 03/21/2021, 11/2019, 04/25/2020, Additional history exists DIABETES-URINE MICROALBUMIN EVERY [...] of this encounter Implants Implanted Type Area Men'S Leather Dress Belt Maker Device Identifier Shelf Expiration Date Model / Serial / Lot Microtech Sure Clip Implanted:Qty: 2 on 06/03/2020 by Janis Hatch DO at OR [facility] Clip N/A: Colon 04/21/2022 [facility]-F-26-2 35-C-R / / [id number] documented as of this encounter Advance Directives Documents on File Type Date Recorded Patient A And P Mechanic 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
--- OUTSIDE RECORDS SUMMARY | 2023-05-10 20:49 | External Medical Summary ---
Author Name Unknown Address Unknown Organization K01:LABORATORY [facility] - [address] [place] [address] Laboratory Report Ordering Provider Test Date Status GALA RODARTE 03/31/2021 14:25:00 Final Observation Date Value Abnormality Reference (Units ) Status Lactic Acid 03/31/2021 14:25:00 1.6 0.4-2.0 (mmol/L) Final Performing Location LABORATORY [facility] - [address] [place] [address]
--- OUTSIDE RECORDS SUMMARY | 2023-05-10 20:50 | External Medical Summary | Summary of Care ---
Author Name Unknown Organization [place] [address] Care Team Providers Care Division Traffic Superintendent Name Role Phone Vanita Dunn MD Primary Care Provid er Reason for Visit * Reason Onset Date Comments Hospital Follow-Up 03/25/2021 Hem/onc Disch arge Encounter Details Date Type Department Care Team Description 03/25/2021 Telephone Hematology/Oncology Treatment, [address] [address] Tono Sanchez MD [address] [place] [address] [phone] Hospital Follow-Up (Hem/onc Discharge) Allergies Active Allergy Reactions Severity Noted Date Comments Adhesive Tape Itching 04/29/2020 Penicillins Rash 02/12/2008 Perflutren Protein A Microsph 2019 Definity-lower back pain documented as of this encounter (statuses as of 03/29/2021) Medications Medication Sig Dispensed Refills Start Date [...] 120 Vial 11 10/02/2019 Active nystatin (NYSTOP) 344360 UNIT/GM powder Apply topically to affected area [...] 60 Each 3 07/27/2020 Active Dexcom G6 Education General Manager Device Use as directed. To test [...] 09/14/2020 Active Nadolol 20 MG Oral Tablet (CORGARD)Indications :HTN, goal below 140/90 One daily 90 Tab 1 09/19/2020 Active Lidocaine-Prilocaine 2.5-2.5 % External Cream (Emla)Indications:Ir on deficiency anemia due to chronic blood loss,Pancytopenia (HCC) Apply topically to affected area as needed for Other (for port). APPLY TO SKIN OVER MEDIPORT & COVER 1HR PRIOR TO ACCESSING. 30 g 3 10/09/2020 Active OneTouch Verio In Vitro Strip (Glucose Blood) TESTING once daily 100 Strip 3 10/29/2020 Active OneTouch Delica Plus [id number] TESTING once daily 100 Each 3 10/29/2020 [...] less than 7.0% ([facility]) Use to inject insulin four times daily; E11.42 400 Each 3 12/05/2020 Active Fluticasone Propionate 50 MCG/ACT Nasal Suspension (Flonase)Indications :Sinus congestion USE 2 SPRAYS IN EACH NOSTRIL ONCE DAILY as directed 16 g 5 12/23/2020 Active Additional Information Patient taking differently: 2 [place] Nasal DAILY PRN, Congestion, Informant: Pharmacy, Reported [...] 500 mg by mouth daily. 0 Active Lactulose 20 GM/30ML Oral Solution (Constulose) Take 67.5 mL by mouth 3 times a day. Titrate to have 3 to 4 bowel movement every day. 2700 mL 2 02/09/2021 Active traMADol HCl 50 MG Oral Tablet (Ultram)Indications: Abdominal pain, left lower quadrant Take 1 Tab by mouth every 6 hours as needed for Pain, Moderate. 30 Tab 0 02/15/2021 Active Spironolactone 25 MG Oral Tablet (Aldactone) [...] before meals. 30 mL 3 03/24/2021 Active documented as of this encounter (statuses as of 03/29/2021) Active Problems Problem Noted Date Lactic acidosis [...] as of this encounter (statuses as of 03/29/2021) Resolved Problems Problem Noted Date Resolved Date [...] pain 01/24/2012 01/17/2017 Genetic Sleep Disorder Research Other*[id number] 05/13/2011 04/07/2016 Obstructive sleep apnea 01/18/2011 12/27/19 [...] as of this encounter (statuses as of 03/29/2021) Immunizations Name Administration Dates Next Due COVID-19 [...] a call to get rescheduled for "Monoferric" (Sanchez) 2 hr. * Telephone Encounter - Francine Okeefe RN - 03/25/2021 2:13 PM EDT Patient admitted at [facility] from 03/21-03/24 with abdominal pain and uncontrolled blood glucose levels. Pt was unable to attend appointment yesterday for monofferic as she was being discharged. Called pt to follow up, no answer. Left a message on machine. Dr Sanchez: FYI Scheduling: pt will need rescheduled for monoferric from yesterday. 2 hr appointment on 503 (kylee)"Monoferric." please contact patient to re-schedule. Thank you! documented in this encounter Plan of Treatment Upcoming Encounters Date Type Specialty Care Team Description 03/29/2021 Office Visit Family Medicine Vanita Dunn MD [address] [place] [address] [phone] 04/05/2021 Office Visit Family Medicine Brianne Pal PA-C [address] [place] [address] [phone] 04/07/2021 Office Visit Pharmacy [facility] [address], [place] [id number] 04/09/2021 Immunization/Injection Hematology Oncolog y Nurse, Med [address] [place] [address] [phone] 04/16/2021 Office Visit Podiatry Prakash Martino DPM [address] [place] [address] 04/29/2021 Telemedicine Palliative Medicine Esperanza Painter MD [address] [place] [address] 04/29/2021 Appointment Radiology 05/11/2021 Office Visit Gastroenterology Sergei Sanchez P, DO [address] [place] [address] 06/07/2021 Nutrition Services Gastroenterology Melissa Omalley, [place] [address] [place] [address] [phone] 07/06/2021 Office Visit Hematology Oncology Tono Sanchez MD [address] [place] [address] [phone] 07/27/2021 Office Visit [facility]enterology [facility] [address] [facility] [address] [phone] 09/09/2021 Imaging Radiology Health Maintenance Due Date [...] this encounter Implants Implanted Type Area Supervisor Hanging And Trimming Device Identifier Shelf Expiration Date Model / Serial / Lot Microtech Sure Clip Implanted:Qty: 2 on 06/03/2020 by Janis Hatch DO at OR [facility] Clip N/A: Colon 04/21/2022 [facility]-F-26-2 35-C-R / / [id number] documented as of this encounter Advance Directives Documents on File Type Date Recorded Patient Behavioral Sciences Instructor 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
--- OUTSIDE RECORDS SUMMARY | 2023-05-10 20:50 | External Medical Summary | Summary of Care ---
Author Name Unknown Organization [place] [address] Care Team Providers Care Sports Medicine Trainer Name Role Phone Vanita Dunn MD Primary Care Provid er Reason for Visit * Reason Onset Date Comments Hospital Follow-Up 03/25/2021 Hem/onc Disch arge Encounter Details Date Type Department Care Team Description 03/25/2021 Telephone Hematology/Oncology Treatment, [address] [phone] Tono Sanchez MD [address] [place] [address] [phone] Hospital Follow-Up (Hem/onc Discharge) Allergies Active Allergy Reactions Severity Noted Date Comments Adhesive Tape Itching 04/29/2020 Penicillins Rash 02/12/2008 Perflutren Protein A Microsph 2019 Definity-lower back pain documented as of this encounter (statuses as of 03/26/2021) Medications Medication Sig Dispensed Refills Start Date [...] 120 Vial 11 10/02/2019 Active nystatin (NYSTOP) 790658 UNIT/GM powder Apply topically to affected area [...] 60 Each 3 07/27/2020 Active Dexcom G6 Global Program Manager Device Use as directed. To test [...] Strip 3 10/29/2020 Active OneTouch Delica Plus [id number] TESTING once daily 100 Each 3 10/29/2020 [...] of less than 7.0% ([facility]) Use to inject insulin four times daily; E11.42 400 Each 3 12/05/2020 Active Fluticasone Propionate 50 MCG/ACT Nasal Suspension (Flonase)Indications :Sinus congestion USE 2 SPRAYS IN EACH NOSTRIL ONCE DAILY as directed 16 g 5 12/23/2020 Active Additional Information Patient taking differently: 2 [place] Nasal DAILY PRN, Congestion, Informant: Pharmacy, Reported [...] as of this encounter (statuses as of 03/26/2021) Active Problems Problem Noted Date Lactic acidosis [...] as of this encounter (statuses as of 03/26/2021) Resolved Problems Problem Noted Date Resolved Date [...] pain 01/24/2012 01/17/2017 Genetic Sleep Disorder Research Other*[id number] 05/13/2011 04/07/2016 Obstructive sleep apnea 01/18/2011 12/27/19 [...] as of this encounter (statuses as of 03/26/2021) Immunizations Name Administration Dates Next Due COVID-19 [...] 03/25/2021 2:13 PM EDT Patient admitted at [facility] from 03/21-03/24 with abdominal pain and uncontrolled blood glucose levels. Pt was unable to attend appointment yesterday for monofferic as she was being discharged. Called pt to follow up, no answer. Left a message on machine. Dr Sanchez: STEWART Scheduling: pt will need rescheduled for monoferric from yesterday. 2 hr appointment on 503 (kylee)"Monoferric." please contact patient to re-schedule. Thank you! documented in this encounter Plan of Treatment Upcoming Encounters Date Type Specialty Care Team Description 03/29/2021 Office Visit Family Medicine Vanita Dunn MD [address] [place] [address] 04/05/2021 Office Visit Family Medicine Brianne Pal PA-C [address] [place] [address] 04/07/2021 Office Visit Pharmacy [facility] [address] [place] [address] 04/09/2021 Immunization/Injection Hematology Oncolog y Nurse, Med [address] [place] [address] [phone] 04/16/2021 Office Visit Podiatry Prakash Martino, SIRENA [address] [place] [address] 04/29/2021 Telemedicine Palliative Medicine Esperanza Painter MD [address] [place] [address] 04/29/2021 Appointment Radiology 05/11/2021 Office Visit Gastroenterology Sergei Sanchez P, DO [address] [place] [address] [phone] 06/07/2021 Nutrition Services Gastroenterology Melissa Omalley RDN [address] [address] 07/06/2021 Office Visit Hematology Oncology Tono Sanchez MD [address] [place] [address] [phone] 07/27/2021 Office Visit Gastroenterology Lysas Stout CRNP [address] [place] [address] [phone] 09/09/2021 Imaging Radiology Health Maintenance Due Date [...] encounter Implants Implanted Type Area Leather Goods Sales Representative Device Identifier Shelf Expiration Date Model / Serial / Lot Microtech Sure Clip Implanted:Qty: 2 on 06/03/2020 by Janis Hatch DO at OR [facility] Clip N/A: Colon 04/21/2022 [facility]-F-26-2 35-C-R / / [id number] documented as of this encounter Advance Directives Documents on File Type Date Recorded Patient Warehouse Shipping Receiving Clerk 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
--- OUTSIDE RECORDS SUMMARY | 2023-05-10 20:50 | External Medical Summary | Summary of Care ---
Author Name Unknown Organization [facility] [place] [address] Care Team Providers Care Bag Machine Operator Name Role Phone Vanita Dunn MD Primary Care Provid er Reason for Visit * Reason Onset Date Comments Hospital Follow-Up Hospital f/u [facility] Hospital Follow-Up 03/29/2021 Encounter Details Date Type Department Care Team Description 03/29/2021 Office Visit [facility] [address] [place] [address] Vanita Dunn MD [address] [place] [address] Hyperglycemia*; Type 2 diabetes mellitus with hemoglobin A1c goal of less than 7.0% (HCC); DM type 2 with diabetic peripheral neuropathy (HCC); Atypical chest pain; Impaired mobility and ADLs; Hospital discharge follow-up; Abdominal pain, left lower quadrant Allergies Active Allergy Reactions Severity Noted Date [...] 120 Vial 11 10/02/2019 Active nystatin (NYSTOP) 635636 UNIT/GM powder Apply topically to affected area [...] 60 Each 3 07/27/2020 Active Dexcom G6 Cigarette Carton Sealer Device Use as directed. To test [...] once daily 100 Strip 3 10/29/2020 Active Partly MarketplaceTouch Delica Plus [id number] TESTING once daily 100 Each 3 10/29/2020 [...] Active Additional Information Patient taking differently: 2 [place] Nasal DAILY PRN, Congestion, Informant: Pharmacy, Reported [...] days. 60 Tab 0 03/29/2021 1 Active Lactulose 20 GM/30ML Oral Solution (Constulose) Take 67.5 mL by mouth 3 times a day. Titrate to have 3 to 4 bowel movement every day. 2700 mL 2 02/09/2021 1 Discontinue d(Refill) traMADol HCl 50 MG Oral [...] pain 01/24/2012 01/17/2017 Genetic Sleep Disorder Research Other*[id number] 05/13/2011 04/07/2016 Obstructive sleep apnea 01/18/2011 12/27/19 [...] Sign Reading Time Taken Comments Blood Pressure 106/62 03/29/2021 3:51 PM EDT Pulse 72 03/29/2021 3:51 PM EDT Temperature 37.2 C (98.9 F) 03/29/2021 3:51 PM ED T Respiratory Rate 18 03/29/2021 3:51 PM EDT Oxygen Saturation - - Inhaled [...] Progress Notes * Vanita Dunn MD - 03/29/2021 3:44 PM EDT ASSESSMENT / PLAN: Hyperglycemia (Primary) - DISCH MED RECON CUR MED LIS Type 2 diabetes mellitus with hemoglobin A1c goal of less than 7.0% (HCC) - DISCH MED RECON CUR MED LIS DM type 2 with diabetic peripheral neuropathy (HCC) - DISCH MED RECON CUR MED LIS Atypical chest pain - DISCH MED RECON CUR MED LIS Impaired mobility and ADLs - DISCH MED RECON CUR MED LIS Hospital discharge follow-up - DISCH MED RECON CUR MED LIS Abdominal pain, left lower quadrant - traMADol HCl 50 MG Oral Tablet (Ultram); Take 1 Tab by mouth every 12 hours as needed for Pain, Moderate for up to 30 days. Other orders - Lactulose 20 GM/30ML Oral Solution (Constulose); Take 67.5 mL by mouth 3 times a day. Titrate to have 3 to 4 bowel movement every day. 65 yo F with multiple comorbidities - here for rehospitalization follow up - discuss guarded prognosis again. She is adherent with medications. Discussed pain mgmt options - she and are hesitant to use the tramadol more than once every now and then - worried about dependence - discussed that she is low risk for dependence - discussed that if this made her more comfortable in the home and added to her quality of life then it may be worth it. They verbalized agreement. Reiterated importance of visit with "Dr. Adhikari" in palliative, given guarded prognosis and rehospitalizations spurred on bypain that may be better controlled with tramadol - refilled tramadol. To follow up after visit with Palliative medicine. Answered all questions. Check-out note: Please give list of upcoming appointments. SUBJECTIVE: Ryland Shaw is a 65 year old female. Nursing Notes: Kiesha Schmitt, DEVAN 03/29/21 1553 Signed Hospital f/u [facility] HPI: Admitted 03/21 - 03/24 - Hospital follow up for atypical chest pain and abdominal pain x 4 days - found to have hyperglycemia. CXR nonacute. Results for RYLAND SHAW ( ) as of 03/29/2021 16:03 Ref. Range 03/23/2021 16:41 03/23/2021 17:41 03/23/2021 21:04 03/24/2021 07:26 03/24/2021 11:21 Glucose Meter Latest Ref Range: 70 - 120 mg/dL 223 (H) 210 (H) 197 (H) 161 (H) 241 (H) Today: voices frustration with the need to take lactulose - understands consequences of not taking however - voices frustration with having to stay in her bed, with bed castillo most of the day when she is adherent with her medication - she prefers to be out of her bedroom, which she says "is the size of this room". Says she has not yet broke the news to her sisters that her liver is failing, says they are visiting her for her birthday. Current Outpatient Medications Medication Sig Dispense Refill Lactulose 20 GM/30ML Oral Solution (Constulose) Take 67.5 mL by mouth 3 times a day. Titrate tohave 3 to 4 bowel movement every day. 2700 mL 2 traMADol HCl 50 MG Oral Tablet (Ultram) Take 1 Tab by mouth every 12 hours as needed for Pain, Moderate for up to 30 days. 60 Tab 0 Insulin Aspart 100 UNIT/ML Subcutaneous Solution (NovoLOG) Inject 6 Units under the skin three times a day before meals. 30 mL 3 Lantus SoloStar 100 UNIT/ML Subcutaneous Solution Pen-injector (Insulin Glargine) inject 32 units under skin at bedtime 30 mL 3 Aspirin 81 MG Oral Tablet Chewable Take [...] Each N/A BiPAP every night at bedtime. Furosemide 40 MG Oral Tablet (Lasix) Take 1 Tab by mouth daily. 30 Tab 5 Nitroglycerin 0.4 MG Sublingual Tablet Sublingual (Nitrostat) Place 1 Tab under the tongue every 5 minutes as needed for Pain, Chest. up to 3 doses in 15 minutes 25 Tab 11 Spironolactone 25 MG Oral Tablet (Aldactone) Take 0.5 Tabs by mouth daily. 30 Tab 5 Cinnamon 500 MG Oral Capsule Take 500 mg by mouth daily. Trulicity 4.5 MG/0.5ML Subcutaneous Solution Pen-injector (Dulaglutide) Inject one pen (4.5mg) under the skin once a week 6 mL 3 Pantoprazole Sodium 20 MG Oral [...] DAILY 60 Tab 5 OneTouch Delica Plus [id number] TESTING once daily 100 Each 3 OneTouch Verio In Vitro Strip (Glucose Blood) TESTING once daily 100 Strip 3 Lidocaine-Prilocaine 2.5-2.5 % External Cream (Emla) Apply topically to affected area as neededfor Other (for port). APPLY TO SKIN OVER MEDIPORT & COVER 1HR PRIOR TO ACCESSING. 30 g 3 Nadolol 20 MG Oral Tablet (CORGARD) One daily 90 Tab 1 Dexcom G6 Cigarette Carton Sealer Device Use as directed. To test [...] With spacer 16 g 1 nystatin (NYSTOP) 244246 UNIT/GM powder Apply topically to affected area [...] mouth daily. 1 Tab 0 OBJECTIVE: BP 106/62 | Pulse 72 | Temp 37.2 C (98.9 F) (Tympanic) | Resp 18 Vitals reviewed and is normotensive afebrile and not tachycardic General: No acute distress. Sitting in a wheelchair. Respiratory: Good inspiratory effort, no labored breathing. HEENT: Conjunctivae appear clear. No swelling noted face or lips. Skin: No rash visible on exposed skin areas, normal coloration & appears dry. Psych: Normal affect. Fluent speech. Vanita Dunn MD [facility] [place] [address] [facility] [phone] There are no Patient Instructions on file for this visit. documented in this encounter Nursing Notes * Kiesha Schmitt LPN - 03/29/2021 3:47 PM EDT Hospital f/u [facility] documented in this encounter Plan of Treatment Upcoming Encounters Date Type Specialty Care Team Description 04/05/2021 Office Visit Family Medicine Brianne Pal PA-C [address] [place] [address] [phone] 04/07/2021 Office Visit Pharmacy [facility] [address] [place] [address] [phone] 04/09/2021 Immunization/Injection Hematology Oncolog y Nurse, Med 4 [address] [facility] [place] [address] [phone] 04/16/2021 Office Visit Podiatry Prakash Martino, SIRENA [address] [place] [address] 04/29/2021 Telemedicine Palliative Medicine Esperanza Painter MD [address] [place] [address] 04/29/2021 Appointment Radiology 05/11/2021 Office Visit Gastroenterology Sergei Sanchez P, DO [address] [place] [address] [phone] 06/07/2021 Nutrition Services Gastroenterology Melissa Omalley, SAMANTHA [address] [place] [address] 07/06/2021 Office Visit Hematology Oncology Tono Sanchez MD [address] [place] [address] [phone] 07/27/2021 Office Visit Gastroenterology Lyssa Stout CRNP [address] [place] [address] [phone] 09/09/2021 Imaging Radiology Health Maintenance Due Date [...] Additional history exists Yearly B-12 03/21/2022 03/21/2021, 11/0 11/2019, 04/25/2020, Additional history exists DIABETES-URINE MICROALBUMIN [...] of this encounter Implants Implanted Type Area Bartender Manager Device Identifier Shelf Expiration Date Model / Serial / Lot Microtech Sure Clip Implanted:Qty: 2 on 06/03/2020 by Janis Hatch DO at OR [facility] Clip N/A: Colon 04/21/2022 [facility]-F-26-2 35-C-R / / [id number] documented as of this encounter Visit Diagnoses Diagnosis Hyperglycemia- Primary Other abnormal glucose Type 2 diabetes mellitus with hemoglobin A1c goal of less than 7.0% (HCC) DM type 2 with diabetic peripheral neuropathy (HCC) Type II or unspecified type diabetes mellitus with neurological manifestations, not stated as uncontrolled Atypical chest pain Other chest pain Impaired mobility and ADLs Mechanical problems with limbs Hospital discharge follow-up Other follow-up examination Abdominal pain, left lower quadrant documented in this encounter Advance Directives Documents on File Type Date Recorded Patient Check Out Cashier 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 Agents on File Name Relationship [facility] Syed Shaw Spouse Emergency Contact
--- OUTSIDE RECORDS SUMMARY | 2023-05-10 20:51 | External Medical Summary | Summary of Care ---
Author Name Unknown Organization [facility] [place] [address] Care Team Providers Care Biotechnician Name Role Phone Vanita Dunn MD Primary Care Provid er Encounter Details Date Type Department Care Team Description 03/25/2021 Peer SpecialistResidential Program ManagerMary [facility] [address] [place] [address] Connie Arguello, UMA [address] [place] [address] Type 2 diabetes mellitus with hemoglobin A1c goal of less than 7.0% (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 To test [...] Strip 3 10/29/2020 Active OneTouch Delica Plus [id number] TESTING once daily 100 Each 3 10/29/2020 [...] than 7.0% ([facility]) Use to inject insulin four times daily; E11.42 400 Each 3 12/05/2020 Active Fluticasone Propionate 50 MCG/ACT Nasal Suspension (Flonase)Indications :Sinus congestion USE 2 SPRAYS IN EACH NOSTRIL ONCE DAILY as directed 16 g 5 12/23/2020 Active Additional Information Patient taking differently: 2 [place] Nasal DAILY PRN, Congestion, Informant: Pharmacy, Reported [...] as of this encounter (statuses as of 03/25/2021) Active Problems Problem Noted Date Lactic acidosis [...] as of this encounter (statuses as of 03/25/2021) Resolved Problems Problem Noted Date Resolved Date [...] 7 02/13/2018 Depression with anxiety 08/19/2016 02/14/20 Hepatic cirrhosis [...] pain 01/24/2012 01/17/2017 Genetic Sleep Disorder Research Other*[id number] 05/13/2011 04/07/2016 Obstructive sleep apnea 01/18/2011 12/27/19 18 Overview: 12/8/11 -- BIPAP auto: max IPAP to 18, [...] as of this encounter (statuses as of 03/25/2021) Immunizations Name Administration Dates Next Due COVID-19 [...] Progress Notes * Connie Arguello, UMA - 03/25/2021 10:19 AM EDT Case Management Assessment-spoke with patient & her , patient s/p hospitalization to [facility] 03/21/21 with chest & abdominal pain, work [...] anemia Is this call for a hospital, residential or rehab facility discharge to home? Yes see above S: Reports: Per patient & her , had call on speaker phone, patient denies SOB or angina Patient continues to have a dry cough, denies increased LE edema Using O2 at 2 liters at night with BiPAP Has a fair appetite, denies bladder complaints, had a BM today Discussed the importance of patient taking the Lactulose 67.5 ml 3 times a day, titrate to have 3-4BM's a day No complaints of pain, denies skin issues Blood sugars running in the 160's, last A1C on 03/08/21 was 8.5 Spoke with Lucila, she plans to follow patient for DM management Discharge instructions recommending endocrinology follow up, will discuss with Dr. Dunn when sheis back in the office Patient lives with her in a 2 story home with 1st floor set up Patient is non-ambulatory, /caregivers use a candace lift to transfer patient Confirmed with [facility] that patient is getting caregivers that come in 21 hours a week Spoke with [facility]-they plan to see the patient beginning of next week Confirmed called & patient has a follow up appointment with Dr. Dunn on 03/29/21 No current questions/concerns O: Phone visit for post hospitalization. Medications: [...] to communicate, understand instructions, process information. P: Peer Specialist Interventions: Encouraged patient to call with increased SOB, cough, fever, chills,increased pain --Constipation: Increase activity Drink plenty of fluids Eat more fiber, fresh fruits and vegetables Consider Miralax daily Avoid harsh laxatives Call with any abdominal pain, cramping, fever or chills Reinforced sodium restriction Reinforced CHO consistency Reinforced safety education / fall prevention Reinforced medication regimen - timing / dosing / purpose Take medications as prescribed Discussed the importance of safety precautions Keep f/u appointments PCP follow up appointment Advised to call office for any change in health status or questions concerning care Encouraged patient to call rifle case repairer with any questions/concerns at [phone]. Office Hours: Mon- 8-8 pm, Monday 8-5 pm, [facility] weekend clinic hours: Saturdays 8-5, Sundays 8-5 PCP Notified of enrollment in CM/HM program: Yes SNP Member? No Re-evaluation of plan of care and progress towards goals achievement: Plan to call patient next week to reassess and update plan of care, verbalizes understanding and agrees with plan. Connie Arguello RN Outpatient Peer Specialist documented in this encounter Plan of Treatment Upcoming Encounters Date Type Specialty Care Team Description 03/29/2021 Office Visit Family Medicine Vanita Dunn MD [address] [place] [address] [phone] 04/05/2021 Office Visit Family Medicine Brianne Pal PA-C [address] [facility] [address] [phone] 04/07/2021 [facility] Visit [facility]acy [facility] [address] [facility] [address] [phone] 04/09/2021 Immunization/Injection Hematology Oncolog y Nurse, Med [address] [place] [address] [phone] 04/16/2021 Office Visit Podiatry Prakash Martino, SIRENA [address] [place] [address] 04/29/2021 Telemedicine Palliative Medicine Esperanza Painter MD [address] [place] [address] 04/29/2021 Appointment Radiology 05/11/2021 Office Visit Gastroenterology Sergei Sanchez P, DO [address] [place] [address] 06/07/2021 Nutrition Services Gastroenterology Melissa Omalley, SAMANTHA [address] [place], [place] [id number] 07/06/2021 Office Visit Hematology Oncology Tono Sanchez MD [address] [place] [address] [phone] 07/27/2021 Office Visit Gastroenterology Lyssa Stout CRNP [address] [place] [address] [phone] 09/09/2021 Imaging Radiology Health Maintenance Due Date Last Done Comments DIABETES-EYE EXAM 06/12/2019 06/12/2018, , 06/12/2018, Additional history exists Dexa Scan 2020 Zoster Vaccines (3 of 3) 06/23/2020 04/28/2020, 03 DIABETES-FOOT EXAM 11/06/2020 11/06/2019, 0 01/09/2019, 12/26/2017, [...] of this encounter Implants Implanted Type Area Paperhanger Contractor Device Identifier Shelf Expiration Date Model / Serial / Lot Microtech Sure Clip Implanted:Qty: 2 on 06/03/2020 by Janis Hatch DO at OR [facility] Clip N/A: Colon 04/21/2022 [facility]-F-26-2 35-C-R / / [id number] documented as of this encounter Visit Diagnoses Diagnosis Type 2 diabetes mellitus with hemoglobin A1c goal of less than 7.0% ([facility])- Primary documented in this encounter Advance Directives Documents on File Type Date Recorded Patient Weaver Dobby Loom 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 Agents on File Name Relationship Healthcare [facility] Communication Syed Bustos Spouse Emergency Contact
--- OUTSIDE RECORDS SUMMARY | 2023-05-10 20:51 | External Medical Summary | Summary of Care ---
Author Name Unknown Organization [facility] Address [place] [address] Care Team Providers Care Unix Consultant Name Role Phone Vanita Dunn MD Primary Care Provid er Reason for Visit * Reason Onset Date Comments FYI 03/24/2021 Encounter Details Date Type Department Care Team Description 03/24/2021 Telephone Pharmacy, [place] [address] [place] [address] Indira Hudson, [facility] [address] [place], [place] [id number] FYI Allergies Active Allergy Reactions Severity Noted Date Comments Adhesive Tape Itching 04/29/2020 Penicillins Rash 02/12/2008 Perflutren Protein A Microsph 2019 Definity-lower back pain documented as of this encounter (statuses as of 03/24/2021) Medications Medication Sig Dispensed Refills Start Date End Date Status Cyclobenzaprine HCl 10 MG Oral Tablet (Flexeril) [...] mouth daily. 30 Tab 5 03/23/2021 Active CENTRUM SILVER PO TABS Take 1 Tab by mouth daily. 1 Tab 0 05/25/2012 Suspended vitamin c (ASCORBIC ACID) 500 MG Tablet Take 500 mg by mouth daily. 0 Suspended albuterol sulfate (PROVENTIL) (2.5 MG/3ML) 0.083% nebulizer solutionIndication s:Pulmonary vascular congestion Inhale 1 Vial via nebulizer every 6 hours as needed for Wheezing. 120 Vial 11 10/02/2019 Suspended Additional Information nystatin (NYSTOP) 982690 UNIT/GM powder Apply topically to affected area [...] 50 g 0 05/26/2020 Suspended Additional Information Ipratropium-Albute rol 0.5-2.5 (3) MG/3ML Inhalation Solution [...] 3 07/27/2020 Suspended Additional Information Dexcom G6 Railroad Conductor Device Use as directed. To test blood [...] Additional Information Nadolol 20 MG Oral Tablet (CORGARD)Indicatio ns:HTN, goal below 140/90 One daily 90 Tab 1 09/19/2020 Suspended Additional Information Lidocaine-Prilocai ne 2.5-2.5 % External Cream (Emla)Indications: [...] 10/29/2020 Suspended Additional Information OneTouch Delica Plus [id number] TESTING once daily 100 Each 3 10/29/2020 [...] Information traZODone HCl 50 MG Oral Tablet (Desyrel)Indicatio [...] Information Fluticasone Propionate 50 MCG/ACT Nasal Suspension (Flonase)Indicatio ns:Sinus congestion USE 2 SPRAYS IN EACH NOSTRIL ONCE DAILY as directed 16 g 5 12/23/2020 Suspended Additional Information Patient taking differently: 2 [place] Nasal DAILY PRN, Congestion, Informant: Pharmacy, Reported [...] once a week 6 mL 3 01/25/2021 Suspended Additional Information Lantus SoloStar 100 UNIT/ML Subcutaneous Solution Pen-injector (Insulin Glargine)Indicatio ns:Type 2 diabetes mellitus with hemoglobin A1c goal of less than 7.0% ([facility]CC) inject 30 units under skin at bedtime 30 mL 3 01/25/2021 Suspended Additional Information Insulin Aspart 100 UNIT/ML Subcutaneous Solution (NovoLOG) Inject 32 units under the skin before breakfast, 36 units before lunch, and 36 units before supper 105 mL 3 01/25/2021 Suspended Additional Information Cinnamon 500 MG Oral Capsule Take 500 mg by mouth daily. 0 Suspended Lactulose 20 GM/30ML Oral Solution (Constulose) Take 67.5 mL by mouth 3 times a day. Titrate to have 3 to 4 bowel movement every day. 2700 mL 2 02/09/2021 Suspended Additional Information traMADol HCl 50 MG Oral Tablet (Ultram)Indication s:Abdominal pain, left lower quadrant Take 1 Tab by mouth every 6 hours as needed for Pain, Moderate. 30 Tab 0 02/15/2021 Suspended Additional Information Spironolactone 25 MG Oral Tablet (Aldactone) Take 0.5 Tabs by mouth daily. 30 Tab 5 03/03/2021 Suspended Additional Information Furosemide 40 MG Oral Tablet (Lasix) Take 1 Tab by mouth daily. 30 Tab 5 03/03/2021 Suspended Additional Information Nitroglycerin 0.4 MG Sublingual Tablet Sublingual (Nitrostat) Place 1 Tab under the tongue every 5 minutes as needed for Pain, Chest. up to 3 doses in 15 minutes 25 Tab 11 03/03/2021 Suspended Additional Information BiPAP every night at bedtime. 0 Suspended MEDICAL INSTRUCTIONSIndica tions:Iron deficiency anemia due to chronic blood loss Please de-access patient's port. Please flush with 10 mL of NS, followed by 500 units (5 mL) of heparin. 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 Admitted on 03/22 for hyperglycemia. Since admission, has only been requiring Lantus 30 units , witha Novolog SS 2:50>150 ACHS. TOUR DIRECTOR was on significantly more Novolog. 34-36 units with meals. After calling the ,seems that he is holding the insulin at times to prevent hypoglycemia. Was not able to download dexcom here due to having the reader. I see that she has close follow up with you. I will discharge her home on a smaller fixed dose for now, just wanted to explain why the significant decrease. Thanks, Alberta Duque PA-C" Patient currently admitted at [facility] with plans for discharge. Will follow-up as previously scheduled on 04/07/21 for inperson [place] appt and will re-evaluate at that time. Indira Hudson RPh, Pharm D, BCACP Clinical Pharmacist 03/24/21 10:54 AM documented in this encounter Plan of Treatment Upcoming Encounters Date Type Specialty Care Team Description 03/24/2021 Hem/Onc Treatment Hematology Oncology [place], Chair [address] Hem Onc Sc[address]ery [address] [place], [place] [address] [phone] 04/05/2021 Office Visit Family Medicine Brianne Pal PA-C [address] [facility] [place] [address] [phone] 04/07/2021 Office Visit Pharmacy [place] [address] [facility] [address] [phone] 04/09/2021 Immunization/Injection Hematology Oncolog y Nurse, Med [address] [place] [address] [phone] 04/16/2021 Office Visit Podiatry Prakash Martino, SIRENA [address] [place] [address] [phone] 04/29/2021 Telemedicine Palliative Medicine Kenya Johnson CRNP [address] [place], [place] [address] 04/29/2021 Appointment Radiology 05/11/2021 Office Visit Gastroenterology Sergei Sanchez P, DO [address] [place] [address] 06/07/2021 Nutrition Services Gastroenterology Melissa Omalley, SAMANTHA [address] [place] [address] [phone] 07/06/2021 Office Visit Hematology Oncology Tono Sanchez MD [address] [place] [address] [phone] 07/27/2021 Office Visit Gastroenterology [facility]sa Stout CR[facility] [address] [facility] [address] [phone] 09/09/2021 Imaging Radiology Health Maintenance Due Date [...] this encounter Implants Implanted Type Area Residential Manager Device Identifier Shelf Expiration Date Model / Serial / Lot Microtech Sure Clip Implanted:Qty: 2 on 06/03/2020 by Janis Hatch DO at OR [facility] Clip N/A: Colon 04/21/2022 [facility]-F-26-2 35-C-R / / [id number] documented as of this encounter Advance Directives Documents on File Type Date Recorded Patient 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
--- OUTSIDE RECORDS SUMMARY | 2023-05-10 20:51 | External Medical Summary | Summary of Care ---
Author Name Unknown Organization [place] [address] Care Team Providers Care Bilingual Teacher Aide Name Role Phone Vanita Dunn MD Primary Care Provid er Reason for Visit * Reason Onset Date Comments Hospital Follow-Up 03/25/2021 Hem/onc Disch arge Encounter Details Date Type Department Care Team Description 03/25/2021 Telephone Hematology/Oncology Treatment, [address] [address] Tono Sanchez MD [address] [place] [address] [phone] Hospital Follow-Up (Hem/onc Discharge) Allergies Active Allergy [...] 120 Vial 11 10/02/2019 Active nystatin (NYSTOP) 772102 UNIT/GM powder Apply topically to affected area [...] 60 Each 3 07/27/2020 Active Dexcom G6 Hamper Maker Machine Device Use as directed. To test [...] Strip 3 10/29/2020 Active OneTouch Delica Plus Diircv00L TESTING once daily 100 Each 3 10/29/2020 [...] 7.0% ([facility]) Use to inject insulin four times daily; E11.42 400 Each 3 12/05/2020 Active Fluticasone Propionate 50 MCG/ACT Nasal Suspension (Flonase)Indications :Sinus congestion USE 2 SPRAYS IN EACH NOSTRIL ONCE DAILY as directed 16 g 5 12/23/2020 Active Additional Information Patient taking differently: 2 [place] Nasal DAILY PRN, Congestion, Informant: Pharmacy, Reported [...] pain 01/24/2012 01/17/2017 Genetic Sleep Disorder Research Other*[id number] 05/13/2011 04/07/2016 Obstructive sleep apnea 01/18/2011 12/27/19 [...] 03/25/2021 2:13 PM EDT Patient admitted at [facility] from 03/21-03/24 with abdominal pain and uncontrolled [...] Medicine Vanita Dunn MD [address] [place] [address] 04/05/2021 Office Visit Family Medicine Brianne Pal PA-C [address] [place] [address] 04/07/2021 Office Visit Pharmacy [facility] [address] [place] [address] 04/09/2021 Immunization/Injection Hematology Oncolog y Nurse, Med [address] [place] [address] [phone] 04/16/2021 Office Visit Podiatry Prakash Martino, SIRENA [address] [place] [address] 04/29/2021 Telemedicine Palliative Medicine Esperanza Painter MD [address] [place] [address] 04/29/2021 Appointment Radiology 05/11/2021 Office Visit Gastroenterology Sergei Sanchez P, DO [address] [place] [address] [phone] 06/07/2021 Nutrition Services Gastroenterology Melissa Omalley RDN [address] [address] 07/06/2021 Office Visit Hematology Oncology Tono Sanchez MD [address] [place] [address] [phone] 07/27/2021 Office Visit Gastroenterology Lyssa Stout CRNP [address] [place] [address] [phone] 09/09/2021 Imaging Radiology Health Maintenance Due Date [...] of this encounter Implants Implanted Type Area Account Strategist Device Identifier Shelf Expiration Date Model / Serial / Lot Microtech Sure Clip Implanted:Qty: 2 on 06/03/2020 by Janis Hatch DO at OR [facility] Clip N/A: Colon 04/21/2022 [facility]-F-26-2 35-C-R / / [id number] documented as of this encounter Advance Directives Documents on File Type Date Recorded Patient Title I Instructional Assistant 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
--- OUTSIDE RECORDS SUMMARY | 2023-05-10 20:52 | External Medical Summary ---
Author Name Unknown Address Unknown Organization : Laboratory Report Ordering Provider Test Date Status SAMANTHA BUTLER 03/22/2021 15:55:54 Final Observation Date Value Abnormality Reference (Units ) Status Glucose Point of Care 03/22/2021 15:55:54 210 Above high normal 70-120 (mg/dL) Final Performing Location
--- OUTSIDE RECORDS SUMMARY | 2023-05-10 20:52 | External Medical Summary ---
Author Name Unknown Address Unknown Organization : Laboratory Report Ordering Provider Test Date Status ELOY ALMEIDA 03/24/2021 07:26:52 Final Observation Date Value Abnormality Reference (Units ) Status Glucose Point of Care 03/24/2021 07:26:52 161 Above high normal 70-120 (mg/dL) Final Performing Location
--- OUTSIDE RECORDS SUMMARY | 2023-05-10 20:52 | External Medical Summary | Summary of Care ---
Author Name Unknown Organization [facility] Address [place] [address] Care Team Providers Care Online Program Coordinator Name Role Phone Vanita Dunn MD Primary Care Provid er Reason for Visit * Reason Onset Date Comments Medication Question 03/22/2021 discharge me ds Encounter Details Date Type Department Care Team Description 03/22/2021 Telephone [facility] [address] [place] [address] Vanita Dunn MD [address] [place] [address] Medication Question (discharge meds ) Allergies Active Allergy Reactions Severity Noted Date Comments Adhesive Tape Itching 04/29/2020 Penicillins Rash 02/12/2008 Perflutren Protein A Microsph 2019 Definity-lower back pain documented as of this encounter (statuses as of 03/23/2021) Medications Medication Sig Dispensed Refills Start Date [...] 11 10/02/2019 Suspended Additional Information nystatin (NYSTOP) 008370 UNIT/GM powder Apply topically to affected area [...] 3 07/27/2020 Suspended Additional Information Dexcom G6 Reflesher Device Use as directed. To test blood [...] 90 Tab 1 09/19/2020 Suspended Additional Information Lidocaine-Priloca ine 2.5-2.5 % External Cream (Emla)Indications [...] 10/29/2020 Suspended Additional Information OneTouch Delica Plus [id number] TESTING once daily 100 Each 3 10/29/2020 [...] Suspended Additional Information Patient taking differently: 2 [place] Nasal DAILY PRN, Congestion, Informant: Pharmacy, Reported [...] Information traMADol HCl 50 MG Oral Tablet (Ultram)Indicatio ns:Abdominal pain, left lower quadrant Take 1 Tab by mouth every 6 hours as needed for Pain, Moderate. 30 Tab 0 02/15/2021 Suspended Additional Information Atorvastatin Calcium 80 MG Oral Tablet (Lipitor) Take 1 Tab by mouth at bedtime. 30 Tab 0 02/20/2021 1 Discontinued( Refill) Aspirin 81 MG Oral Tablet Chewable Take 1 Tab by mouth daily. 30 Tab 0 02/21/2021 1 Discontinued( Refill) Isosorbide Mononitrate ER 30 MG Oral Tablet Extended Release 24 Hour (Imdur) Take 1 Tab by mouth daily. 30 Tab 0 02/21/2021 1 Discontinued( Refill) Spironolactone 25 MG Oral Tablet [...] as of this encounter (statuses as of 03/23/2021) Active Problems Problem Noted Date Lactic acidosis [...] as of this encounter (statuses as of 03/23/2021) Resolved Problems Problem Noted Date Resolved Date [...] pain 01/24/2012 01/17/2017 Genetic Sleep Disorder Research Other*[id number] 05/13/2011 04/07/2016 Obstructive sleep apnea 01/18/2011 12/27/19 [...] as of this encounter (statuses as of 03/23/2021) Immunizations Name Administration Dates Next Due COVID-19 [...] encounter Miscellaneous Notes * Telephone Encounter - Nany Perez PHARM Tech - 03/22/2021 10:28 AM EDT Pharmacy calling requesting refills for aspirin 81mg, atorvastatin 80mg, and isosorbide . Upon chart review, medication was last prescribed by emergency room. Pt did schedule a hospital follow up visit. Please advise if you wish to continue this therapy for the patient. Pt has been admitted at this time. Thank you, Nany Perez [facility] Dice Dealer II [facility]pharm[facility] 03/22/2021, 10:30 AM documented in this encounter Plan of Treatment Upcoming Encounters Date Type Specialty Care Team Description 03/24/2021 Hem/Onc Treatment Hematology Oncology [place], Chair 8 Hem Onc Scene [address] [place] [address] [address] [phone] 04/05/2021 Office Visit Family Medicine Brianne Pal PA-C [address] [place] [address] [phone] 04/07/2021 [facility] [address] [place] [address] [phone] 04/09/2021 Immunization/Injection Hematology Oncolog y Nurse, Med [address] [place] [address] [address] [phone] 04/16/2021 Office Visit Podiatry Prakash Martino DPM [facility] [place] [address] 04/29/2021 Telemedicine Palliative Medicine [place] KenyaZAK simon [address] [place] [address] 04/29/2021 Appointment Radiology 05/11/2021 Office Visit Gastroenterology Sergei Sanchez P, DO [address] [place] [address] [phone] 06/07/2021 Nutrition Services Gastroenterology Melissa Omalley, SAMANTHA [address] [facility] [place] [id number] 07/06/2021 Office Visit Hematology Oncology Tono Sanchez MD [address] [place] [address] [phone] 07/27/2021 Office Visit Gastroenterology Lyssa Stout CRNP [address] [place] [address] [phone] 09/09/2021 Imaging Radiology Health Maintenance Due Date [...] of this encounter Implants Implanted Type Area Rn Peritoneal Dialysis Device Identifier Shelf Expiration Date Model / Serial / Lot Microtech Sure Clip Implanted:Qty: 2 on 06/03/2020 by Janis Hatch DO at OR [facility] Clip N/A: Colon 04/21/2022 [facility]-F-26-2 35-C-R / / [id number] documented as of this encounter Advance Directives Documents on File Type Date Recorded Patient Topographic Computator 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
--- OUTSIDE RECORDS SUMMARY | 2023-05-10 20:52 | External Medical Summary ---
Author Name Unknown Address Unknown Organization : Laboratory Report Ordering Provider Test Date Status SAMANTHA BUTLER 03/23/2021 17:41:40 Final Observation Date Value Abnormality Reference (Units ) Status Glucose Point of Care 03/23/2021 17:41:40 210 Above high normal 70-120 (mg/dL) Final Performing Location
--- OUTSIDE RECORDS SUMMARY | 2023-05-10 20:52 | External Medical Summary ---
Author Name Unknown Address Unknown Organization : Laboratory Report Ordering Provider Test Date Status SAMANTHA BUTLER 03/22/2021 21:54:42 Final Observation Date Value Abnormality Reference (Units ) Status Glucose Point of Care 03/22/2021 21:54:42 257 Above high normal 70-120 (mg/dL) Final Performing Location
--- OUTSIDE RECORDS SUMMARY | 2023-05-10 20:52 | External Medical Summary ---
Author Name Unknown Address Unknown Organization : Laboratory Report Ordering Provider Test Date Status SAMANTHA BUTLER 03/23/2021 16:41:45 Final Observation Date Value Abnormality Reference (Units ) Status Glucose Point of Care 03/23/2021 16:41:45 223 Above high normal 70-120 (mg/dL) Final Performing Location
--- OUTSIDE RECORDS SUMMARY | 2023-05-10 20:52 | External Medical Summary ---
Author Name Unknown Address Unknown Organization K01:LABORATORY [facility] [place] - [address] [place] [address] Laboratory Report Ordering Provider Test Date Status BRANDO CAMPOS 03/23/2021 08:04:00 Final Observation Date Value Abnormality Reference (Units ) Status Albumin 03/23/2021 08:04:00 2.8 Below low normal 3.8-5.0 (g/dL) Final AST (Aspartate aminotransferase) 03/23/2021 08:04:00 51 Above high normal 10-35 (U/L) Final Performing Location LABORATORY [facility] - [address] [place] [address]
--- OUTSIDE RECORDS SUMMARY | 2023-05-10 20:52 | External Medical Summary ---
Author Name Unknown Address Unknown Organization K01:[facility] [place] [address] [facility] [address] Laboratory Report Ordering Provider Test Date Status BRONWYN PLATA 03/23/2021 08:04:00 Final Observation Date Value Abnormality Reference (Units ) Status BUN 03/23/2021 08:04:00 9 6-20 (mg/dL) Final Creatinine 03/23/2021 08:04:00 0.6 0.5-1.0 (mg/dL) Final Glomerular filtration rate/1.73 sq M.predicted [Volume Rate/Area] in Serum, Plasma or Blood by Creatinine-based formula (CKD-EPI) 03/23/2021 08:04:00 >90.0 >=60.0 (mL/min) Final Performing Location LAB[facility] [place] - [address] [facility] [address]
--- OUTSIDE RECORDS SUMMARY | 2023-05-10 20:52 | External Medical Summary ---
Author Name Unknown Address Unknown Organization : Laboratory Report Ordering Provider Test Date Status SAMANTHA BUTLER 03/23/2021 21:04:49 Final Observation Date Value Abnormality Reference (Units ) Status Glucose Point of Care 03/23/2021 21:04:49 197 Above high normal 70-120 (mg/dL) Final Performing Location
--- OUTSIDE RECORDS SUMMARY | 2023-05-10 20:52 | External Medical Summary ---
Author Name Unknown Address Unknown Organization : Laboratory Report Ordering Provider Test Date Status SAMANTHA BUTLER 03/23/2021 11:30:14 Final Observation Date Value Abnormality Reference (Units ) Status Glucose Point of Care 03/23/2021 11:30:14 168 Above high normal 70-120 (mg/dL) Final Performing Location
--- OUTSIDE RECORDS SUMMARY | 2023-05-10 20:52 | External Medical Summary ---
Author Name Unknown Address Unknown Organization : Laboratory Report Ordering Provider Test Date Status SAMANTHA BUTLER 03/23/2021 07:50:16 Final Observation Date Value Abnormality Reference (Units ) Status Glucose Point of Care 03/23/2021 07:50:16 163 Above high normal 70-120 (mg/dL) Final Performing Location
--- OUTSIDE RECORDS SUMMARY | 2023-05-10 20:52 | External Medical Summary ---
Author Name Unknown Address Unknown Organization : Laboratory Report Ordering Provider Test Date Status SAMANTHA BUTLER 03/22/2021 18:10:11 Final Observation Date Value Abnormality Reference (Units ) Status Glucose Point of Care 03/22/2021 18:10:11 219 Above high normal 70-120 (mg/dL) Final Performing Location
--- OUTSIDE RECORDS SUMMARY | 2023-05-10 20:52 | External Medical Summary ---
Author Name Unknown Address Unknown Organization : Laboratory Report Ordering Provider Test Date Status ELOY ALMEIDA 03/24/2021 11:21:53 Final Observation Date Value Abnormality Reference (Units ) Status Glucose Point of Care 03/24/2021 11:21:53 241 Above high normal 70-120 (mg/dL) Final Performing Location
--- OUTSIDE RECORDS SUMMARY | 2023-05-10 20:53 | External Medical Summary | Summary of Care ---
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 Name Role Phone Kojo Hinojosa MD Primary Care Provid er Reason for Visit * Reason Comments eRx-Medication Refill Encounter Details Date Type Department Care Team Description 03/19/2021 Refill [place] [address] [place] [address] Alexandra Caceres, [address] [place] [address] Allergies Active Allergy Reactions Severity Noted Date Comments Adhesive Tape Itching 04/29/2020 Penicillins Rash 02/12/2008 Perflutren Protein A Microsph 2019 Definity-lower back pain documented as of this encounter (statuses as of 03/22/2021) Medications Medication Sig Dispensed Refills Start Date End Date Status Cyclobenzaprine HCl 10 MG Oral Tablet (Flexeril) TAKE 1 TABLET ONCE DAILY AT BEDTIME 30 Tab 0 03/22/2021 Active CENTRUM SILVER PO TABS Take 1 Tab by mouth daily. 1 Tab 0 05/25/2012 Suspended vitamin c (ASCORBIC ACID) 500 MG Tablet Take 500 mg by mouth daily. 0 Suspended albuterol sulfate (PROVENTIL) (2.5 MG/3ML) 0.083% nebulizer solutionIndicatio ns:Pulmonary vascular congestion Inhale 1 Vial via nebulizer every 6 hours as needed for Wheezing. 120 Vial 11 10/02/2019 Suspended Additional Information nystatin (NYSTOP) 855242 UNIT/GM powder Apply topically to affected area [...] 3 07/27/2020 Suspended Additional Information Dexcom G6 Logging Assistant Device Use as directed. To test [...] 10/29/2020 Suspended Additional Information OneTouch Delica Plus [id number] TESTING once daily 100 Each 3 10/29/2020 [...] 90 Cap 1 11/29/2020 Suspended Additional Information Cyclobenzaprine HCl 10 MG Oral Tablet (Flexeril) TAKE 1 TABLET BY MOUTH AT BEDTIME 30 Tab 2 11/30/2020 Discontinued traZODone HCl 50 MG Oral Tablet (Desyrel)Indicati ons:Sleep disturbances TAKE 1 TABLET BY MOUTH AT BEDTIME 90 Tab 2 11/30/2020 Suspended Additional Information BD Pen Needle Mini U/F 31G X 5 MM (Insulin Pen Needle)Indication s:Type 2 diabetes mellitus with hemoglobin A1c goal of less than 7.0% ([facility]) Use to inject insulin four times daily; E11.42 400 Each 3 12/05/2020 Suspended Additional Information Fluticasone Propionate 50 MCG/ACT Nasal Suspension (Flonase)Indicati ons:Sinus congestion USE 2 SPRAYS IN EACH NOSTRIL ONCE DAILY as directed 16 g 5 12/23/2020 Suspended Additional Information Patient taking differently: 2 [place] [...] mouth at bedtime. 30 Tab 0 02/20/2021 Suspended Additional Information Aspirin 81 MG Oral Tablet Chewable Take 1 Tab by mouth daily. 30 Tab 0 02/21/2021 Suspended Additional Information Isosorbide Mononitrate ER 30 MG Oral Tablet Extended Release 24 Hour (Imdur) Take 1 Tab by mouth daily. 30 Tab 0 02/21/2021 Suspended Additional Information Spironolactone 25 MG Oral [...] as of this encounter (statuses as of 03/22/2021) Active Problems Problem Noted Date Lactic acidosis 03/22/2021 Portal hypertensive gastropathy 03/16/20 21 Anginal chest pain at rest 02/20/2021 Acute on chronic heart failure with pres erved ejection fraction (HFpEF) 02/18/2021 Melena 02/15/2021 Vancomycin resistant enterococcus cultur e positive 02/15/2021 Urinary catheter dysfunction 02/15/2021 Cyst of pancreas 02/15/2021 Cardiomegaly 01/30/2021 SOB (shortness of breath) 01/30/2021 Uncontrolled type 2 diabetes mellitus [facility] hyperglycemia 07/15/2020 Esophagitis 07/06/2020 Esophageal varices [...] as of this encounter (statuses as of 03/22/2021) Resolved Problems Problem Noted Date Resolved Date [...] pain 01/24/2012 01/17/2017 Genetic Sleep Disorder Research Other*[id number] 05/13/2011 04/07/2016 Obstructive sleep apnea 01/18/2011 12/27/19 [...] as of this encounter (statuses as of 03/22/2021) Immunizations Name Administration Dates Next Due COVID-19 [...] encounter Miscellaneous Notes * Telephone Encounter - Mona, Kojo Carissa Chipe, MD - 03/22/2021 7:45 AM EDT Signed Prescriptions: Disp Refills Cyclobenzaprine HCl 10 MG Oral Tablet (Fle*30 Tab 0 Sig: TAKE 1 TABLET ONCE DAILY AT BEDTIME Authorizing Provider: KOJO HINOJOSA * Telephone Encounter - Serg Martinez RPh - 03/21/2021 10:12 AM EDT Pending Prescriptions: Disp Refills Cyclobenzaprine HCl 10 MG Oral Tablet [Pha*30 Tab 0 Sig: TAKE 1 TABLET ONCE DAILY AT BEDTIME * Telephone Encounter - Serg Martinez RPh - 03/21/2021 10:12 AM EDT Refill pharmacists currently not authorized to approve refills for this class of medication per refill protocol. Please approve if appropriate. Thanks, Serg [place], PharmD Clinical Pharmacist TelePharmacy 03/21/2021 10:12 AM documented in this encounter Plan of Treatment Upcoming Encounters Date Type Specialty Care Team Description 03/24/2021 Hem/Onc Treatment Hematology Oncology [place], Chair 8 Hem Onc Scenery [address] [facility] [place] [address] 04/05/2021 Office Visit Family Medicine Brianne Pal PA-C [address] [place] [address] [phone] 04/07/2021 Office Visit Pharmacy [facility] [address] [place] [address] [phone] 04/09/2021 Immunization/Injection Hematology Oncolog y Nurse, Med 4 [address] [place] [address] [phone] 04/16/2021 Office Visit Podiatry Prakash Martino, DPM [address] [place] [address] 04/29/2021 Telemedicine Palliative Medicine Kenya Johnson CRNP [address] [place] [address] 04/29/2021 Appointment Radiology 05/11/2021 Office Visit Gastroenterology Sergei Sanchez P, DO [address] [place] [address] [phone] 06/07/2021 Nutrition Services Gastroenterology Melissa Omalley, SAMANTHA [address] [facility] [address] [place] [address] [phone] 07/06/2021 Office Visit Hematology Oncology Tono Sanchez MD 200 [place] [address] [phone] 07/27/2021 Office Visit Gastroenterology Lyssa Stout CRNP [address] [facility] [place] [address] [phone] 09/09/2021 Imaging Radiology Health Maintenance Due Date [...] of this encounter Implants Implanted Type Area Outpatient Physical Therapist Assistant Device Identifier Shelf Expiration Date Model / Serial / Lot Microtech Sure Clip Implanted:Qty: 2 on 06/03/2020 by Janis Hatch DO at OR [facility] Clip N/A: Colon 04/21/2022 [facility]-F-26-2 35-C-R / / [id number] documented as of this encounter Advance Directives Documents on File Type Date Recorded Patient 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 Communication Syed Fariasel Spouse Emergency Contact
--- OUTSIDE RECORDS SUMMARY | 2023-05-10 20:53 | External Medical Summary | Summary of Care ---
Author Name Unknown Organization [place] [address] Care Team Providers Care Senior Net Web Developer Name Role Phone Vanita Dunn MD Primary Care Provid er Reason for Visit * Reason Onset Date Comments Hospital Follow-Up 03/12/2021 hem/onc disch arge Encounter Details Date Type Department Care Team Description 03/12/2021 Telephone Hematology/Oncology Treatment, [address] [address] Chelle Sanchez MD [address] [place] [address] [phone] Hospital Follow-Up (hem/onc discharge) Allergies Active Allergy Reactions Severity Noted Date [...] 11 10/02/2019 Suspended Additional Information nystatin (NYSTOP) 611496 UNIT/GM powder Apply topically to affected area [...] 3 07/27/2020 Suspended Additional Information Dexcom G6 Doctor Of Medicine Device Use as directed. To test blood [...] 10/29/2020 Suspended Additional Information OneTouch Delica Plus [id number] TESTING once daily 100 Each 3 10/29/2020 [...] MOUTH AT BEDTIME 30 Tab 2 11/30/2020 1 Discontinued traZODone HCl 50 MG Oral Tablet [...] Suspended Additional Information Patient taking differently: 2 [place] Nasal DAILY PRN, Congestion, Informant: Pharmacy, Reported [...] BiPAP every night at bedtime. 0 Suspended Ondansetron HCl 4 MG Oral Tablet (Zofran) Take 1 Tab by mouth every 8 hours as needed for Nausea for up to 2 days. 6 Tab 0 03/11/2021 1 documented as of this encounter (statuses as [...] pain 01/24/2012 01/17/2017 Genetic Sleep Disorder Research Other*[id number] 05/13/2011 04/07/2016 Obstructive sleep apnea 01/18/2011 12/27/19 [...] Miscellaneous Notes * Telephone Encounter - Janett Triana OSA - 03/19/2021 9:10 AM EDT Called and spoke to patient and she requested 03/24/21 for Monoferric. * Telephone Encounter - Lucero Wang OSA - 03/16/2021 2:16 PM EDT Called and left message for patient to give us a call back to get scheduled for "Monoferric" iron infusion. (1.5 hr) Left number of [phone] Option 1. * Telephone Encounter - Cassie Barboza RN - 03/16/2021 1:20 PM EDT Referral entered. Scheduling: please call patient to schedule 1.5 hour appt on 503 schedule "monoferric" (Daniel). Thanks! One appt needed. * Telephone Encounter - Francine Okeefe RN - 03/12/2021 3:32 PM EDT [place] plan built. PA pending. Called patient to make her aware. Explained the monoferric regimen and that once we have PA back scheduling will be in touch to schedule her appt. Pt verbalizes understanding. Also explained we faxedorders for home health to de-access her port. No further questions. * Addendum Note - Chelle Sanchez MD - 03/12/2021 3:04 PM EDT Addended by: CHELLE SANCHEZ on: 03/12/2021 03:04 PM Modules accepted: Orders * Telephone Encounter - Chelle Sanchez MD - 03/12/2021 3:04 PM EDT She received 1 dose of IV iron in the form Venofer at 200 mg on 03/08/2021 when she was admitted at [facility]. CT scan of the abdomen and pelvis (03/08/2021: -cirrhosis take liver with varices. -spleen reported to be unremarkable (not sure about the corrected reading). She had another CT scanof the abdomen earlier on 02/03/2021, It was reported to be around 13.8 cm at that time. She has pancytopenia related to the splenomegaly. (Not a new finding). She is having intermittent upper GI bleed. Upper GI endoscopy done on 03/10/2021: -grade 1 esophageal varices, portal hypertensive gastropathy, erythematous mucosa of the antrum. Colonoscopy done in May 2020 showed several polyps removed from the colon.. I would consider for giving intravenous iron in the form Ferric Derisomaltose (Monoferric) x1 dose. Repeat CBCD of Ferritin, iron profile about 1 month after the last IV iron treatment. * Telephone Encounter - Cassie Barboza RN - 03/12/2021 2:11 PM EDT Patient admitted at [facility] 03/07/21- 03/11/21 for chest pain. Received 2 doses of venofer - 200mg on 03/08/21, 200mg on 03/09/21. Per discharge summary, patient should receive 2 additional doses of venofer. 03/08/21- ferritin 21, %sat 14 03/07/21- hgb 7.2, 03/11/21- hgb 7.9 Hematology referral placed for pancytopenia- this is not a new issue for patient, related to cirrhosis. Dr Sanchez: please advise on ordering additional venofer doses. Thanks! documented in this encounter Plan of Treatment Upcoming Encounters Date Type Specialty Care Team Description 03/24/2021 Hem/Onc Treatment Hematology Oncology [place], Chair 8 Hem Onc Scenery [address] [place] [address] [phone] 04/05/2021 Office Visit Family Medicine Brianne Pal PA-C [address] [place] [address] [phone] 04/07/2021 Office Visit Pharmacy [place], [facility] [address] [place] [address] [phone] 04/09/2021 Immunization/Injection Hematology Oncolog y Nurse, Med 4 [address] [place] [address] [phone] 04/16/2021 Office Visit Podiatry Prakash Martino, DPBelen [address] [place] [address] 04/29/2021 Telemedicine Palliative Medicine Kenya Johnson CRNP [address] [place] [address] 04/29/2021 Appointment Radiology 05/11/2021 Office Visit Gastroenterology Sergei Sanchez P, DO [address] [place], [place] [address] 06/07/2021 Nutrition Services Gastroenterology Melissa Omalley, SAMANTHA [address] [place] [address] [phone] 07/06/2021 Office Visit Hematology Oncology Chelle Sanchez MD [address] [place] [address] [phone] 07/27/2021 Office Visit Gastroenterology Lyssa Stout CRNP [address] [facility] [place] [address] [phone] 09/09/2021 Imaging Radiology Health Maintenance Due Date [...] of this encounter Implants Implanted Type Area [place] Maker Device Identifier Shelf Expiration Date Model / Serial / Lot Microtech Sure Clip Implanted:Qty: 2 on 06/03/2020 by Janis Hatch DO at OR [facility] Clip N/A: Colon 04/21/2022 [facility]-F-26-2 35-C-R / / [id number] documented as of this encounter Visit Diagnoses Diagnosis Iron deficiency anemia due to chronic blood loss- Primary Iron deficiency anemia secondary to blood loss (chronic) documented in this encounter Advance Directives Documents on File Type Date Recorded Patient Surgical Dental Assistant 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
--- OUTSIDE RECORDS SUMMARY | 2023-05-10 20:53 | External Medical Summary ---
Author Name Unknown Address Unknown Organization : Laboratory Report Ordering Provider Test Date Status SAMANTHA BUTLER 03/22/2021 11:57:03 Final Observation Date Value Abnormality Reference (Units ) Status Glucose Point of Care 03/22/2021 11:57:03 214 Above high normal 70-120 (mg/dL) Final Performing Location
--- OUTSIDE RECORDS SUMMARY | 2023-05-10 20:53 | External Medical Summary ---
Author Name Unknown Address Unknown Organization : Laboratory Report Ordering Provider Test Date Status SAMANTHA BUTLER 03/22/2021 13:49:05 Final Observation Date Value Abnormality Reference (Units ) Status Glucose Point of Care 03/22/2021 13:49:05 242 Above high normal 70-120 (mg/dL) Final Performing Location
--- OUTSIDE RECORDS SUMMARY | 2023-05-10 20:54 | External Medical Summary ---
Author Name Unknown Address Unknown Organization : Laboratory Report Ordering Provider Test Date Status SAMANTHA BUTLER 03/22/2021 03:57:03 Final Observation Date Value Abnormality Reference (Units ) Status Glucose Point of Care 03/22/2021 03:57:03 207 Above high normal 70-120 (mg/dL) Final Performing Location
--- OUTSIDE RECORDS SUMMARY | 2023-05-10 20:54 | External Medical Summary ---
Author Name Unknown Address Unknown Organization [id number]:LABORATORY [facility] [place] [address] [place] [address] Laboratory Report Ordering Provider Test Date Status BRANDO CAMPOS 03/22/2021 09:28:00 Final Observation Date Value Abnormality Reference (Units ) Status BUN 03/22/2021 09:28:00 9 6-20 (mg/dL) Final Creatinine 03/22/2021 09:28:00 0.6 0.5-1.0 (mg/dL) Final Glomerular filtration rate/1.73 sq M.predicted [Volume Rate/Area] in Serum, Plasma or Blood by Creatinine-based formula (CKD-EPI) 03/22/2021 09:28:00 >90.0 >=60.0 (mL/min) Final Performing Location LABORATORY [facility] [place] [address] [facility] [address]
--- OUTSIDE RECORDS SUMMARY | 2023-05-10 20:54 | External Medical Summary ---
Author Name Unknown Address Unknown Organization : Laboratory Report Ordering Provider Test Date Status SAMANTHA BUTLER 03/22/2021 09:59:09 Final Observation Date Value Abnormality Reference (Units ) Status Glucose Point of Care 03/22/2021 09:59:09 169 Above high normal 70-120 (mg/dL) Final Performing Location
--- OUTSIDE RECORDS SUMMARY | 2023-05-10 20:54 | External Medical Summary ---
Author Name Unknown Address Unknown Organization : Laboratory Report Ordering Provider Test Date Status SAMANTHA BUTLER 03/22/2021 08:01:00 Final Observation Date Value Abnormality Reference (Units ) Status Glucose Point of Care 03/22/2021 08:01:00 183 Above high normal 70-120 (mg/dL) Final Performing Location
--- OUTSIDE RECORDS SUMMARY | 2023-05-10 20:54 | External Medical Summary ---
Author Name Unknown Address Unknown Organization [id number]:[place]ATORY [facility] [place] [address] [place] [address] Laboratory Report Ordering Provider Test Date Status BRANDO CAMPOS 03/22/2021 09:28:00 Final Observation Date Value Abnormality Reference (Units ) Status WBC, Total 03/22/2021 09:28:00 3.73 Below low normal 4.00-10.80 (K/uL) Final RBC 03/22/2021 09:28:00 2.57 Below low normal 3.85-5.15 (M/uL) Final Hemoglobin 03/22/2021 09:28:00 8.1 Below low normal 12.0-15.3 (g/dL) Final HCT 03/22/2021 09:28:00 26.5 Below low normal 36.0-45.2 (%) Final MCV 03/22/2021 09:28:00 103.1 Above high normal 81.5-97.5 (fL) Final MCH 03/22/2021 09:28:00 31.5 27.0-34.0 (pg) Final MCHC 03/22/2021 09:28:00 30.6 Below low normal 32.0-36.0 (g/dL) Final RDW 03/22/2021 09:28:00 20.1 Above high normal 11.5-15.5 (%) Final MPV 03/22/2021 09:28:00 13.5 Above high normal 6.6-11.1 (fL) Final Nucleated erythrocytes/100 leukocytes [Ratio] in Blood by Automated count 03/22/2021 09:28:00 0 <=0 (/100 WBCs) Final Platelets 03/22/2021 09:28:00 73 Below low normal 140-400 (K/uL) Final Performing Location LABORATORY [facility] [place] [address] [place] [address]
--- OUTSIDE RECORDS SUMMARY | 2023-05-10 20:54 | External Medical Summary ---
Author Name Unknown Address Unknown Organization K01:LABORATORY [facility] – [place] - [address] [place] [address] [place] [address] Laboratory Report Ordering Provider Test Date Status ROXIE DOS SANTOS 03/21/2021 23:34:19 Final Observation Date Value Abnormality Reference (Units ) Status SARS Coronavirus 2 03/21/2021 23:34:19 Negative N egative Final Performing Location LABORATORY [facility] - [address] [place] [address]
--- OUTSIDE RECORDS SUMMARY | 2023-05-10 20:54 | External Medical Summary ---
Author Name Unknown Address Unknown Organization : Laboratory Report Ordering Provider Test Date Status SAMANTHA BUTLER 03/22/2021 05:39:43 Final Observation Date Value Abnormality Reference (Units ) Status Glucose Point of Care 03/22/2021 05:39:43 197 Above high normal 70-120 (mg/dL) Final Performing Location
--- OUTSIDE RECORDS SUMMARY | 2023-05-10 20:54 | External Medical Summary ---
Author Name Unknown Address Unknown Organization K01:LABORATORY [facility] – [place] - [address] [place] [address] Laboratory Report Ordering Provider Test Date Status BRANDO CAMPOS 03/21/2021 23:13:00 Final Observation Date Value Abnormality Reference (Units ) Status Lactic Acid 03/21/2021 23:13:00 2.2 Above high normal 0.4-2.0 (mmol/L) Final Performing Location LABORATORY [facility] – [place] - [address] [place] [address]
--- OUTSIDE RECORDS SUMMARY | 2023-05-10 20:54 | External Medical Summary ---
Author Name Unknown Address Unknown Organization [id number]:LABORATORY [facility] – [place] - [address] [place] [address] Laboratory Report Ordering Provider Test Date Status COLBY MONTANA 03/22/2021 01:32:47 Final Observation Date Value Abnormality Reference (Units ) Status Color of Urine by Auto 03/22/2021 01:32:47 Yellow Colorless, Light Yellow, Yellow, Dark Yellow Final Clarity, Urine 03/22/2021 01:32:47 Slightly Cloudy Abnormal Clear Final Glucose [Mass/volume] in Urine by Automated test strip 03/22/2021 01:32:47 >=1000 Abnormal Negative (mg/dL) Final Bilirubin.total [Presence] in Urine by Automated test strip 03/22/2021 01:32:47 Negative Negative Final Ketones [Mass/volume] in Urine by Automated test strip 03/22/2021 01:32:47 Negative Negative (mg/dL) Final Specific gravity, Urine 03/22/2021 01:32:47 1.024 1.003-1.030 Final Hemoglobin [Presence] in Urine by Automated test strip 03/22/2021 01:32:47 Large Abnormal Negative Final pH, Urine 03/22/2021 01:32:47 6.0 5.0-7.5 (Units) Final Protein [Mass/volume] in Urine by Automated test strip 03/22/2021 01:32:47 Trace Abnormal Negative (mg/dL) Final Urobilinogen [Mass/volume] in Urine by Automated test strip 03/22/2021 01:32:47 2.0 Abnormal Normal (mg/dL) Final Nitrite [Presence] in Urine by Automated test strip 03/22/2021 01:32:47 Positive Abnormal Negative Final Leukocyte esterase [Presence] in Urine by Automated test strip 03/22/2021 01:32:47 Large Abnormal Negative Final RBC, Urine 03/22/2021 01:32:47 0-2 0-2 (/HPF) Final WBC, Urine 03/22/2021 01:32:47 30-49 Abnormal 0-2 (/HPF) Final Bacteria [#/area] in Urine sediment by Microscopy high power field 03/22/2021 01:32:47 >200 Abnormal 0-25 (/HPF) Final Yeast [#/area] in Urine sediment by Microscopy high power field 03/22/2021 01:32:47 Present Abnormal None (/HPF) Final CULTURE, URINE - [facility] 03/22/2021 01:32:47 Final Performing Location LABORATORY [facility] [place] - [address] [facility] [address]
--- OUTSIDE RECORDS SUMMARY | 2023-05-10 20:54 | External Medical Summary ---
Author Name Unknown Address Unknown Organization : Laboratory Report Ordering Provider Test Date Status SAMANTHA BUTLER 03/22/2021 02:43:37 Final Observation Date Value Abnormality Reference (Units ) Status Glucose Point of Care 03/22/2021 02:43:37 265 Above high normal 70-120 (mg/dL) Final Performing Location
--- OUTSIDE RECORDS SUMMARY | 2023-05-10 20:54 | External Medical Summary ---
Author Name Unknown Address Unknown Organization K01:LABORATORY [facility] [place] - [address] [place] [address] Laboratory Report Ordering Provider Test Date Status BRANDO CAMPOS 03/22/2021 09:28:00 Final Observation Date Value Abnormality Reference (Units ) Status Albumin 03/22/2021 09:28:00 2.8 Below low normal 3.8-5.0 (g/dL) Final AST (Aspartate aminotransferase) 03/22/2021 09:28:00 40 Above high normal 10-35 (U/L) Final Alk Phos 03/22/2021 09:28:00 159 Above high normal 35-130 (U/L) Final ALT (Alanine aminotransferase) 03/22/2021 09:28:00 27 10-35 (U/L) Final Bilirubin, Total 03/22/2021 09:28:00 1.2 <=1.2 (mg/dL) Final Bilirubin, Direct 03/22/2021 09:28:00 0.5 Above high normal 0.0-0.3 (mg/dL) Final Protein 03/22/2021 09:28:00 6.1 6.0-8.3 (g/dL) Final Performing Location LABORATORY [facility] [place] - [address] [place] [address]
--- OUTSIDE RECORDS SUMMARY | 2023-05-10 20:54 | External Medical Summary ---
Author Name Unknown Address Unknown Organization : Laboratory Report Ordering Provider Test Date Status SAMANTHA BUTLER 03/22/2021 01:35:37 Final Observation Date Value Abnormality Reference (Units ) Status Glucose Point of Care 03/22/2021 01:35:37 291 Above high normal 70-120 (mg/dL) Final Performing Location
--- OUTSIDE RECORDS SUMMARY | 2023-05-10 20:54 | External Medical Summary ---
Author Name Unknown Address Unknown Organization K01:LAB[place]ATORY [facility] [place] [address] [place] [address] Laboratory Report Ordering Provider Test Date Status BRANDO CAMPOS 03/22/2021 00:57:00 Final Observation Date Value Abnormality Reference (Units ) Status BUN 03/22/2021 00:57:00 11 6-20 (mg/dL) Final Creatinine 03/22/2021 00:57:00 0.6 0.5-1.0 (mg/dL) Final Glomerular filtration rate/1.73 sq M.predicted [Volume Rate/Area] in Serum, Plasma or Blood by Creatinine-based formula (CKD-EPI) 03/22/2021 00:57:00 >90.0 >=60.0 (mL/min) Final Performing Location LABORATORY [facility] [place] [address] [facility] [address]
--- OUTSIDE RECORDS SUMMARY | 2023-05-10 20:54 | External Medical Summary ---
Author Name Unknown Address Unknown Organization K01:LABORATORY [facility] - [address] [facility] [address] Laboratory Report Ordering Provider Test Date Status KRISTIAN MONTANAMarc 03/22/2021 01:32:47 Preliminary Observation Date Value Abnormality Reference (Units) Status Bacteria identified in Unspecified specimen by Culture 03/22/2021 01:32:47 [id number] YLOCOCCUS AUREUS MRSA Abnormal Preliminary Performing Location LABORATORY [facility] [place] - [address] [place] [address] Ordering Provider Test Date Status NANKRISTIANMarc 03/22/2021 01:32:47 Preliminary Observation Date Value Abnormality Reference (Units) Status Nitrofurantoin susceptibility 03/22/2021 01:32:47 <=16 Susceptible Preliminary Oxacillinsusceptibility 03/22/2021 01:32:47 >=4 Resistant Preliminary Performing Location LABORATORY [facility] - [address] [place] [address]
--- OUTSIDE RECORDS SUMMARY | 2023-05-10 20:54 | External Medical Summary ---
Author Name Unknown Address Unknown Organization K01:[place] [facility] [place] [address] [place] [address] Laboratory Report Ordering Provider Test Date Status BRANDO CAMPOS 03/22/2021 09:29:00 Final Observation Date Value Abnormality Reference (Units ) Status Lactic Acid 03/22/2021 09:29:00 1.9 0.4-2.0 (mmol/L) Final Performing Location LABORATORY [facility] - [address] [place] [address]
--- OUTSIDE RECORDS SUMMARY | 2023-05-10 20:55 | External Medical Summary ---
Author Name Unknown Address Unknown Organization K01:LABORATORY [facility] [place] - [address] [place] [address] Laboratory Report Ordering Provider Test Date Status KRISTIAN MONTANAMarc 03/21/2021 21:07:00 Final Observation Date Value Abnormality Reference (Units ) Status Lipase 03/21/2021 21:07:00 14 13-60 (U/L ) Final Performing Location LABORATORY [facility] - [address] [place] [address]
--- OUTSIDE RECORDS SUMMARY | 2023-05-10 20:55 | External Medical Summary ---
Author Name Unknown Address Unknown Organization K01:LABORATORY [facility] – [place] - [address] [place] [address] Laboratory Report Ordering Provider Test Date Status BRANDO CAMPOS 03/21/2021 21:07:00 Final Observation Date Value Abnormality Reference (Units ) Status Bilirubin, Direct 03/21/2021 21:07:00 0.7 Above high normal 0.0-0.3 (mg/dL) Final Performing Location LABORATORY [facility] [place] - [address] [place] [address]
--- OUTSIDE RECORDS SUMMARY | 2023-05-10 20:55 | External Medical Summary ---
Author Name Unknown Address Unknown Organization K01:LABORATORY [facility] – [place] - [address] [facility] [place] [address] Laboratory Report Ordering Provider Test Date Status COLBY MONTANA 03/21/2021 21:07:00 Final Observation Date Value Abnormality Reference (Units ) Status SYNC LEUKOCYTES IN BLOOD BY AUTOMATED COUNT 03/21/2021 21:07:00 3.74 Below low normal 4.00-10.80 (K/uL) Final Segs 03/21/2021 21:07:00 61.0 40.0-75.0 (%) Final Lymphs % 03/21/2021 21:07:00 21.1 18.0-42.0 (%) Final Monos 03/21/2021 21:07:00 11.8 Above high normal 1.0-11.0 (%) Final Eosinophils 03/21/2021 21:07:00 4.8 0.0-6.0 (%) Final Basos 03/21/2021 21:07:00 0.8 0.0-2.0 (%) Final Immature Granulocyte, Percent 03/21/2021 21:07:00 0.5 0.0-2.0 (%) Final Absolute Segs 03/21/2021 21:07:00 2.28 1.80-7.70 (K/uL) Final Lymphs, absolute 03/21/2021 21:07:00 0.79 Below low normal 1.00-4.80 (K/ul) Final Monos, Abs 03/21/2021 21:07:00 0.44 0.00-1.10 (K/uL) Final Eos, Abs 03/21/2021 21:07:00 0.18 0.00-0.70 (K/uL) Final Basos, Abs 03/21/2021 21:07:00 0.03 0.00-0.20 (K/uL) Final Immature Granulocytes, Number 03/21/2021 21:07:00 0.02 0.00-0.20 (K/uL) Final Performing Location LABORATORY [facility] [place] - [facility] [place] [address]
--- OUTSIDE RECORDS SUMMARY | 2023-05-10 20:55 | External Medical Summary ---
Author Name Unknown Address Unknown Organization K01:LABORATORY [facility] [place] - [address] [place] [address] Laboratory Report Ordering Provider Test Date Status COLBY MONTANA 03/21/2021 21:07:00 Final Observation Date Value Abnormality Reference (Units ) Status WBC, Total 03/21/2021 21:07:00 3.74 Below low normal 4.00-10.80 (K/uL) Final RBC 03/21/2021 21:07:00 2.73 Below low normal 3.85-5.15 (M/uL) Final Hemoglobin 03/21/2021 21:07:00 8.5 Below low normal 12.0-15.3 (g/dL) Final HCT 03/21/2021 21:07:00 29.5 Below low normal 36.0-45.2 (%) Final MCV 03/21/2021 21:07:00 108.1 Above high normal 81.5-97.5 (fL) Final MCH 03/21/2021 21:07:00 31.1 27.0-34.0 (pg) Final MCHC 03/21/2021 21:07:00 28.8 Below low normal 32.0-36.0 (g/dL) Final RDW 03/21/2021 21:07:00 20.3 Above high normal 11.5-15.5 (%) Final MPV 03/21/2021 21:07:00 14.3 Above high normal 6.6-11.1 (fL) Final Nucleated erythrocytes/100 leukocytes [Ratio] in Blood by Automated count 03/21/2021 21:07:00 0 <=0 (/100 WBCs) Final Platelets 03/21/2021 21:07:00 83 Below low normal 140-400 (K/uL) Final Performing Location LABORATORY [facility] [place] - [address] [place] [address]
--- OUTSIDE RECORDS SUMMARY | 2023-05-10 20:55 | External Medical Summary ---
Author Name Unknown Address Unknown Organization K01:[place]ORY [facility] [place] [address] [place] [address] Laboratory Report Ordering Provider Test Date Status BRANDO CAMPOS 03/21/2021 21:07:00 Final Observation Date Value Abnormality Reference (Units ) Status Vitamin B12 03/21/2021 21:07:00 1252 Above high normal 232-1,245 (pg/mL) Final Performing Location [facility]ORY [facility] [place] [address] [place] [address]
--- OUTSIDE RECORDS SUMMARY | 2023-05-10 20:55 | External Medical Summary ---
Author Name Unknown Address Unknown Organization K01:[place] [facility] [place] [address] [facility] [address] Laboratory Report Ordering Provider Test Date Status COLBY MONTANA 03/21/2021 21:07:00 Final Observation Date Value Abnormality Reference (Units ) Status Lactic Acid 03/21/2021 21:07:00 2.7 Above high normal 0.4-2.0 (mmol/L) Final Performing Location [place] [facility] [place] [address] [facility] [address]
--- OUTSIDE RECORDS SUMMARY | 2023-05-10 20:55 | External Medical Summary ---
Author Name Unknown Address Unknown Organization K01:LABORATORY [facility] [place] - [address] [place] [address] Laboratory Report Ordering Provider Test Date Status ROXIE DOS SANTOS 03/21/2021 21:07:00 Final Observation Date Value Abnormality Reference (Units ) Status Troponin T 03/21/2021 21:07:00 14 <=14 (ng/ L) Final Performing Location LABORATORY [facility] - [address] [place] [address]
--- OUTSIDE RECORDS SUMMARY | 2023-05-10 20:55 | External Medical Summary ---
Author Name Unknown Address Unknown Organization K01:LABORATORY [facility] [place] - [facility] [address] [place] [address] Laboratory Report Ordering Provider Test Date Status ROXIE DOS SANTOS 03/21/2021 23:13:00 Final Observation Date Value Abnormality Reference (Units ) Status Body temperature 03/21/2021 23:13:00 37.0 (C) Final pH of Venous blood 03/21/2021 23:13:00 7.408 7.320-7.430 (units) Final Carbon dioxide [Partial pressure] in Venous blood 03/21/2021 23:13:00 44.7 40.0-60.0 (mmHg) Final Oxygen [Partial pressure] in Venous blood 03/21/2021 23:13:00 46.3 25.0-50.0 (mmHg) Final Bicarbonate, Venous 03/21/2021 23:13:00 27.6 23.0-31.0 (mmol/L) Final Base excess, Capillary 03/21/2021 23:13:00 3.1 Above high normal -2.0-2.0 (mmol/L) Final Hemoglobin [Mass/volume] in Blood by Oximetry 03/21/2021 23:13:00 8.5 Below low normal 12.0-15.3 (g/dL) Final Oxyhemoglobin, Venous (FO2HB) 03/21/2021 23:13:00 74.5 40.0-85.0 (% total Hgb) Final Carboxyhemoglobin 03/21/2021 23:13:00 2.5 Above high normal <=1.5 (% total Hgb) Final Performing Location LABORATORY [facility] [place] - [address] [place] [address]
--- OUTSIDE RECORDS SUMMARY | 2023-05-10 20:55 | External Medical Summary ---
Author Name Unknown Address Unknown Organization K01:LABORATORY [facility] [place] - [address] [place] [address] Laboratory Report Ordering Provider Test Date Status COLBY MONTANA 03/21/2021 21:07:00 Final Observation Date Value Abnormality Reference (Units ) Status BUN 03/21/2021 21:07:00 10 6-20 (mg/dL) Final Creatinine 03/21/2021 21:07:00 0.7 0.5-1.0 (mg/dL) Final Glomerular filtration rate/1.73 sq M.predicted [Volume Rate/Area] in Serum, Plasma or Blood by Creatinine-based formula (CKD-EPI) 03/21/2021 21:07:00 >90.0 >=60.0 (mL/min) Final Performing Location LABORATORY [facility] [place] - [address] [place] [address]
--- OUTSIDE RECORDS SUMMARY | 2023-05-10 20:55 | External Medical Summary | Summary of Care ---
Author Name Unknown Organization [facility] [place] [address] Care Team Providers Care Coldfusion Name Role Phone Vanita Dunn MD Primary Care Provid er Reason for Visit * Reason Onset Date Comments Advice 03/19/2021 Encounter Details Date Type Department Care Team Description 03/19/2021 Telephone [facility] [address] [place] [address] Vanita Dunn MD [address] [place] [address] Advice Allergies Active Allergy Reactions Severity Noted Date Comments Adhesive Tape Itching 04/29/2020 Penicillins Rash 02/12/2008 Perflutren Protein A Microsph 2019 Definity-lower back pain documented as of this encounter (statuses as of 03/21/2021) Medications Medication Sig Dispensed Refills Start Date [...] 120 Vial 11 10/02/2019 Active nystatin (NYSTOP) 326107 UNIT/GM powder Apply topically to affected area [...] Each 3 07/27/2020 Active Dexcom G6 Sales Service Professional Device Use as directed. [...] once daily 100 Strip 3 10/29/2020 Active KruxTouch Delica Plus [id number] TESTING once daily 100 Each 3 10/29/2020 [...] BEFORE BREAKFAST 90 Cap 1 11/29/2020 Active Cyclobenzaprine HCl 10 MG Oral Tablet (Flexeril) TAKE 1 TABLET BY MOUTH AT BEDTIME 30 Tab 2 11/30/2020 Active traZODone HCl 50 MG Oral Tablet [...] Active Additional Information Patient taking differently: 2 [place] Nasal DAILY PRN, Congestion, Informant: Pharmacy, Reported [...] a week 6 mL 3 01/25/2021 Active Lantus SoloStar 100 UNIT/ML Subcutaneous Solution Pen-injector (Insulin Glargine)Indications :Type 2 diabetes mellitus with hemoglobin A1c goal of less than 7.0% (HCC) inject 30 units under skin at bedtime 30 mL 3 01/25/2021 Active Insulin Aspart 100 UNIT/ML Subcutaneous Solution (NovoLOG) Inject 32 units under the skin before breakfast, 36 units before lunch, and 36 units before supper 105 mL 3 01/25/2021 Active Cinnamon 500 MG [...] Pain, Moderate. 30 Tab 0 02/15/2021 Active Atorvastatin Calcium 80 MG Oral Tablet (Lipitor) Take 1 Tab by mouth at bedtime. 30 Tab 0 02/20/2021 Active Aspirin 81 MG Oral Tablet Chewable Take 1 Tab by mouth daily. 30 Tab 0 02/21/2021 Active Isosorbide Mononitrate ER 30 MG Oral Tablet Extended Release 24 Hour (Imdur) Take 1 Tab by mouth daily. 30 Tab 0 02/21/2021 Active Spironolactone 25 MG Oral Tablet (Aldactone) [...] as of this encounter (statuses as of 03/21/2021) Active Problems Problem Noted Date Portal hypertensive gastropathy 03/16/20 21 Anginal chest [...] Fibromyalgia 04/08/2019 Achilles tendinitis, right leg 9 DNR (do not resuscitate) 04/08/2019 Ambulatory dysfunction 04/04/2019 DM type 2 with [...] NG (nonalcoholic steatohepatitis) 04/12 HTN, goal below 140/90 03/27/2012 Chronic rhinitis 03/27/2012 Urinary tract infection 01/27/2012 Cerebral palsy 01/24/2012 Spinal stenosis of lumbar region without neurogenic claudication 12/27/2010 Venous insufficiency 01/09/2009 DDD (degenerative disc disease), lumbar Dyslipidemia, goal LDL below 70 documented as of this encounter (statuses as of 03/21/2021) Resolved Problems Problem Noted Date Resolved Date [...] 07/02/2014 Pruritic disorder 05/07/2012 07/02/2014 Hyperglycemia 05/02/2012 06/07/2016 Diverticulosis of colon 05/02/2012 02/14/20 18 Obstipation [...] pain 01/24/2012 01/17/2017 Genetic Sleep Disorder Research Other*[id number] 05/13/2011 04/07/2016 Obstructive sleep apnea 01/18/2011 12/27/19 [...] as of this encounter (statuses as of 03/21/2021) Immunizations Name Administration Dates Next Due COVID-19 [...] encounter Miscellaneous Notes * Telephone Encounter - Keyonna Barillas LPN - 03/21/2021 12:49 PM EDT FYI. Called patient today. Spoke to . States that patient had a good amount of bowel movement last Monday night. Does not need enema and currently patient at the toilet and doing a bowel movement. Denies pain or discomfort at the time of the call. No further question asked. * Telephone Encounter - Vanita Dunn MD - 03/19/2021 4:30 PM EDT FYI In general, yes, an enema would be appropriate at such a time. But if or patient declines, then going to ER for the enema would be the next step. AG * Telephone Encounter - Shelly Hirsch LPN - 03/19/2021 11:01 AM EDT Vandana calling from [facility]. Saw her today. She has not had a BM since Monday. Bowel sounds positive. Giving her lactulose and miralax. Pressed on her belly and it did hurt a little. Suggestedsomething else, like maybe an enema and was not responsive to this. Letting us know. * Telephone Encounter - Abbie Martinez OSA - 03/19/2021 10:58 AM EDT Reason for patient's call: Patients bowel movement Caller was transferred to [facility] at the nurse line. documented in this encounter Plan of Treatment Upcoming Encounters Date Type Specialty Care Team Description 03/24/2021 Hem/Onc Treatment Hematology Oncology Park, Chair [address] Hem Onc Scenery [address] [facility] [place] [address] [phone] 04/05/2021 Office Visit Family Medicine Brianne Pal PA-C [address] [facility] [id number] 04/07/2021 Office Visit Pharmacy [facility] [address] [facility] [place] [address] [phone] 04/09/2021 Immunization/Injection Hematology Oncolog y Nurse, Med [address] [place] [address] [phone] 04/16/2021 Office Visit Podiatry Prakash Martino, DPM [address] [place] [address] 04/29/2021 Telemedicine Palliative Medicine Kenya [place] CRNP [address] [place], [place] [id number] 04/29/2021 Appointment Radiology 05/11/2021 Office Visit Gastroenterology Sergei Sanchez, DO [address] [place] [address] [phone] 06/07/2021 Nutrition Services Gastroenterology Melissa Omalley, SAMANTHA [address] [place] [address] [phone] 07/06/2021 Office Visit Hematology Oncology Tono Sanchez MD [address] [place] [address] [phone] 07/27/2021 Office Visit Gastroenterology Lyssa Stout CRNP [address] [place] [address] [phone] 09/09/2021 Imaging Radiology Health Maintenance Due Date Last Done Comments DIABETES-EYE EXAM 06/12/2019 06/12/2018, , 06/12/2018, Additional history exists Dexa Scan 2020 Zoster Vaccines (3 of 3) 06/23/2020 04/28/2020, 11/11 DIABETES-FOOT EXAM 11/06/2020 11/06/2019, 0 01/09/2019, 12/26/2017, Additional history exists COVID-19 Vaccine (2 - Moderna 2-dose series) 12/21/2020 11/23/2020 Influenza Vaccine (FLU shot) (#1) 2021 06/01/2020, 06/05/2019, 05/16/2018, Additional history exists Yearly B-12 07/14/2021 07/14/2020, 04/11, 02/21/2020, Additional history exists DIABETES-HGBA1C EVERY 6 MONTHS 09/07/2021 03/08/2021, 11/30/2020, 07/06/2020, Additional history exists BREAST CANCER SCREENING DISCUSSION YEARLY AGES 40-75 09/08/2021 09/08/2020, 09/02/2019, 04/04/2018, Additional history exists DIABETES-URINE MICROALBUMIN EVERY 12 MONTHS 03/07/2022 03/07/2021, 02/04/2021, 01/11/2019, Additional history exists Pneumococcal Vaccine: 65+ Years (2 of 2) 05/02/2024 05/02/2019, 06/01/2010 COLONOSCOPY-EVERY 5 YRS AGES 18-100 06/03/2025 06/03/2020, 06/03/2020, 03/17/2020, Additional history exists DTaP,Tdap,and Td Vaccines (3 - Td) 05/01/2027 05/01/2017, 05/26/2008 MENINGOCOCCAL (MENACTRA/MENVEO) Aged Out No longer eligible based on patient's age to complete this topic documented as of this encounter Implants Implanted Type Area Insurance Territory Manager Device Identifier Shelf Expiration Date Model / Serial / Lot Microtech Sure Clip Implanted:Qty: 2 on 06/03/2020 by Janis Hatch DO at OR [facility] Clip N/A: Colon 04/21/2022 [facility]-F-26-2 35-C-R / / [id number] documented as of this encounter Advance Directives Documents on File Type Date Recorded Patient Citrus Peeler 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 Date Activated Date Inactivated Comments Full Code 03/08/2021 3:24 AM 03/11/2021 6:09 [...] Power of Attor elsie? No Full Code 08/05/2020 2:38 PM 08/05/2020 7:42 PM Thi s order reflects the patients wishes and were consensually agreed upon. Discussion of Advance Directives occurred with: Not Discussed Healthcare Agents on File Name Relationship Healthcare Agent [facility] p Communication Syed Bustos Spouse Emergency Contact
--- OUTSIDE RECORDS SUMMARY | 2023-05-10 20:55 | External Medical Summary ---
Author Name Unknown Address Unknown Organization K01:[facility] - [address] [place] [address] Laboratory Report Ordering Provider Test Date Status BRANDO CAMPOS 03/21/2021 21:07:00 Final Observation Date Value Abnormality Reference (Units ) Status Folic Acid 03/21/2021 21:07:00 11.5 >4.5 (ng/ mL) Final Performing Location [facility] - [address] [place] [address]
--- OUTSIDE RECORDS SUMMARY | 2023-05-10 20:56 | External Medical Summary | Summary of Care ---
Author Name Unknown Organization [facility] Address [place] [address] Care Team Providers Care Position Description Manager Name Role Phone Vanita Dunn MD Primary Care Provid er Encounter Details Date Type Department Care Team Description 03/19/2021 Catalyst Concentration OperatorMilitary Administrative TechnicianSaint [facility] [address] [place] [address] Connie Arguello, UMA [address] [place] [address] Restrictive lung disease* Allergies Active Allergy Reactions Severity Noted Date Comments Adhesive Tape Itching 04/29/2020 Penicillins Rash 02/12/2008 Perflutren Protein A Microsph 2019 Definity-lower back pain documented as of this encounter (statuses as of 03/19/2021) Medications Medication Sig Dispensed Refills Start Date [...] 120 Vial 11 10/02/2019 Active nystatin (NYSTOP) 023678 UNIT/GM powder Apply topically to affected area [...] 60 Each 3 07/27/2020 Active Dexcom G6 Bindery Machine Tender Device Use as directed. To [...] TO ACCESSING. 30 g 3 10/09/2020 Active OneParascaleuch Verio In Vitro Strip (Glucose Blood) TESTING once daily 100 Strip 3 10/29/2020 Active OneTouch Delica Plus [id number] TESTING once daily 100 Each 3 10/29/2020 [...] Active Additional Information Patient taking differently: 2 [place] Nasal DAILY PRN, Congestion, Informant: Pharmacy, Reported [...] as of this encounter (statuses as of 03/19/2021) Active Problems Problem Noted Date Portal hypertensive gastropathy 07/06/20 21 Anginal chest pain at rest 02/20/2021 [...] as of this encounter (statuses as of 03/19/2021) Resolved Problems Problem Noted Date Resolved Date [...] pain 01/24/2012 01/17/2017 Genetic Sleep Disorder Research Other*[id number] 05/13/2011 04/07/2016 Obstructive sleep apnea 01/18/2011 12/27/19 [...] as of this encounter (statuses as of 03/19/2021) Immunizations Name Administration Dates Next Due COVID-19 [...] No 03/08/2021 documented as of this encounter Progress Notes * Connie Arguello, UMA - 03/19/2021 10:42 AM EDT Case Management Assessment-spoke with patient & her Dilip, patient s/p hospitalization to [facility] on 03/07/21 with complaints of chest pain, cardiac work up was unrevealing, patient had a low hemoglobin, was given 1 unit of blood, also given 2 doses of IV venofer, GI work up completed, EGDcompleted on 03/10/21- showed no active bleeding, but presence of portal hypertensive gastropathy & erythematous antral mucosa, these finding are like contributing to her abdominal/epigastric pain & nausea, patient discharged home on 03/11/21 with instructions to continue Pantoprazole 40 mg twice a day Is this call for a hospital, custodial or rehab facility discharge to home? No, follow up S: Reports: Per patient's Dilip, patient denies SOB, or angina Has a cough, says he notices her coughing several times a day Patient using O2 at night with her CPAP, has some LE edema, Dilip says it is "up a little" Patient eating 3 small meals a day, says she is drinking fluids Patient has not had a BM since March 15-message sent to Dr. Dunn Denies urinary complaints, no complaints of pain, no skin issues Blood sugars running 190-250 [facility] was there this morning Confirmed patient set up for an appointment with palliative medicine in April Medications: takes all medications as prescribed. Does this patient qualify for an annual wellness visit? No A: Patient Centered Prioritized Goals: take medications as prescribed, keep follow up appointments, stay safe in her home, prevent readmission & ER visits Co-morbid conditions identified and managed. Patient/ caregiver demonstrates adherence to treatment plan. Identified Barriers: Non Adherence to prescribed treatment plan and Lack of motivation FUNCTIONAL STATUS: (Definition - assess ability to [...] to communicate, understand instructions, process information. P: Catalyst Concentration Operator Interventions: Encouraged patient/ to call with increased SOB , cough, fever, chills, constipation --Constipation: Message sent to Dr. Dunn to make her aware of patient's current constipation Increase activity Drink plenty of fluids Eat more fiber, fresh fruits and vegetables Take Lactulose as prescribed Avoid harsh laxatives Call with any abdominal pain, cramping, fever or chills Encouraged patient to change positions frequently Reinforced sodium restriction Reinforced CHO consistency Reinforced safety education / fall prevention Reinforced medication regimen - timing / dosing / purpose PCP Notified of enrollment in CM/HM program: Yes SNP Member? No Re-evaluation of plan of care and progress towards goals achievement: Plan to call patient next week to reassess and update plan of care, verbalizes understanding and agrees with plan. Connie Arguello, RN Outpatient Catalyst Concentration Operator documented in this encounter Plan of Treatment Upcoming Encounters Date Type Specialty Care Team Description 03/24/2021 Hem/Onc Treatment Hematology Oncology Park, Chair [address] Hem On[address] [place] [address] [phone] 04/05/2021 Office Visit Family Medicine Brianne Pal PA-C [address] [place] [address] [phone] 04/07/2021 Office Visit Pharmacy [facility] [address] [place] [address] [phone] 04/09/2021 Immunization/Injection Hematology Oncolog y Nurse, Med [address] [place] [address] [phone] 04/16/2021 Office Visit Podiatry Prakash Martino, SIRENA [address] [place] [address] [phone] 04/29/2021 Telemedicine Palliative Medicine Kenya [place], ZAK [address] [place] [address] 04/29/2021 Appointment Radiology 05/11/2021 Office Visit [facility]enterology Sergei [place] P, DO [address] [facility] [address] [phone] 06/07/2021 Nutrition Services Gastroenterology Melissa Omalley RDN [address] [facility] [address] [place] [id number] 07/06/2021 Office Visit Hematology Oncology Tono Sanchez MD [address] [place] [address] [phone] 07/27/2021 Office Visit Gastroenterology Lyssa Stout CRNP [address] [facility] [place] [address] [phone] 09/09/2021 Imaging Radiology Health Maintenance Due Date [...] this encounter Implants Implanted Type Area Food Counter Attendant Device Identifier Shelf Expiration Date Model / Serial / Lot Microtech Sure Clip Implanted:Qty: 2 on 06/03/2020 by Janis Hatch DO at OR [facility] Clip N/A: Colon 04/21/2022 [facility]-F-26-2 35-C-R / / [id number] documented as of this encounter Visit Diagnoses Diagnosis Restrictive lung disease- Primary Other diseases of lung, not elsewhere classified documented in this encounter Advance Directives Documents on File Type Date Recorded Patient Flower Buncher Or Picker 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 Agents on File Name Relationship Healthcare Agent Romainme p Communication Syed Bustos Spouse Emergency Contact
--- OUTSIDE RECORDS SUMMARY | 2023-05-10 20:56 | External Medical Summary | Summary of Care ---
Author Name Unknown Organization [place] [address] Care Team Providers Care Wheel Loader Operator Name Role Phone Vanita Dunn MD Primary Care Provid er Reason for Visit * Reason Onset Date Comments Hospital Follow-Up 03/12/2021 hem/onc disch arge Encounter Details Date Type Department Care Team Description 03/12/2021 Telephone Hematology/Oncology Treatment, [address] [address] Chelle Sanchez MD [address] [place] [address] [phone] Hospital Follow-Up (hem/onc discharge) Allergies Active Allergy [...] 120 Vial 11 10/02/2019 Active nystatin (NYSTOP) 295965 UNIT/GM powder Apply topically to affected area [...] 60 Each 3 07/27/2020 Active Dexcom G6 Supervisor Carton And Can Supply Device Use as directed. To test blood [...] once daily 100 Strip 3 10/29/2020 Active IDYIA InnovationsTouch Delica Plus [id number] TESTING once daily 100 Each 3 10/29/2020 [...] of less than 7.0% ([facility]) Use to inject insulin four times daily; E11.42 400 Each 3 12/05/2020 Active Fluticasone Propionate 50 MCG/ACT Nasal Suspension (Flonase)Indication s:Sinus congestion USE 2 SPRAYS IN EACH NOSTRIL ONCE DAILY as directed 16 g 5 12/23/2020 Active Additional Information Patient taking differently: 2 [place] Nasal DAILY PRN, Congestion, Informant: Pharmacy, Reported [...] BiPAP every night at bedtime. 0 Active Ondansetron HCl 4 MG Oral Tablet (Zofran) Take 1 Tab by mouth every 8 hours as needed for Nausea for up to 2 days. 6 Tab 0 03/11/2021 03/13/2021 documented as of this encounter (statuses as [...] pain 01/24/2012 01/17/2017 Genetic Sleep Disorder Research Other*[id number] 05/13/2011 04/07/2016 Obstructive sleep apnea 01/18/2011 12/27/19 Overview: 08/18/11 -- BIPAP auto: max IPAP [...] apnea 02/08/2008 03/28/2012 Overview: Compliance 12/21 to 5/1/11 -- used device 19 of 20 days, [...] iron infusion. (1.5 hr) Left number of [phone] Option 1. * Telephone Encounter - Cassie Barboza RN - 03/16/2021 1:20 PM EDT Referral entered. Scheduling: please call patient to schedule 1.5 hour appt on 503 schedule "monoferric" (Sanchez). Thanks! One appt needed. * Telephone Encounter - Francine Okeefe RN - 03/12/2021 3:32 PM EDT [place] plan built. [place] pending. Called patient to [...] on 03/08/2021 when she was admitted at [facility]. CT scan of the abdomen and [...] 03/12/2021 2:11 PM EDT Patient admitted at [facility] 03/07/21- 03/11/21 for chest pain. Received 2 [...] Chair 8 Hem Onc Scenery [address] [place], [place] [address] [phone] 04/05/2021 Office Visit Family Medicine Brianne Pal PA-C [address] [place] [facility] [place] [address] 04/07/2021 Office Visit [facility]acy [facility] [address] [facility] [address] [phone] 04/09/2021 Immunization/Injection Hematology Oncolog y Nurse, Med [address] [place] [address] [phone] 04/16/2021 Office Visit Podiatry Prakash Martino, DPM [address] [place] [address] 04/29/2021 Telemedicine Palliative Medicine Kenya [place] CRNP [address] [place], [place] [address] 04/29/2021 Appointment Radiology 05/11/2021 Office Visit Gastroenterology Sergei Sanchez, DO [address] [place] [address] 06/07/2021 Nutrition Services Gastroenterology Melissa Omalley RDN [address] [place] [address] [phone] 07/06/2021 Office Visit Hematology Oncology Chelle Sanchez MD [address] [place] [address] [phone] 07/27/2021 Office Visit Gastroenterology Lyssa Stout CRNP [address] [place] [address] [phone] 09/09/2021 Imaging Radiology Health Maintenance Due Date [...] of this encounter Implants Implanted Type Area Fisher Seal Device Identifier Shelf Expiration Date Model / Serial / Lot Microtech Sure Clip Implanted:Qty: 2 on 06/03/2020 by Janis Hatch DO at OR [facility] Clip N/A: Colon 04/21/2022 [facility]-F-26-2 35-C-R / / [id number] documented as of this encounter Visit Diagnoses Diagnosis Iron deficiency anemia due to chronic blood loss- Primary Iron deficiency anemia secondary to blood loss (chronic) documented in this encounter Advance Directives Documents on File Type Date Recorded 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
--- OUTSIDE RECORDS SUMMARY | 2023-05-10 20:56 | External Medical Summary | Summary of Care ---
Author Name Unknown Organization [place] [address] Care Team Providers Care Exchange Specialist Name Role Phone Vanita Dunn MD Primary Care Provid er Reason for Referral * Evaluate & Treat - Unlimited Visits (Within 30 days (routine)) Status Reason Specialty Diagnoses / Procedures Referred By Contact Referred To Contact Authorized Specialty Services Required Hospice and Palliative Medicine [...] Portal hypertensive gastropathy (HCC) Vanita Dunn MD [address] [place] [address] Question Answer Referral Priority Within 30 days (routine) Reason for Referral: Other - Specify in Comments Palliative Medicine To Address: Goals of Care Comments 65 yo F with complex medical history and debility - main issue causing readmissions medically speaking is end stage liver disease causing severe anemia of chronic disease and fatigue as well as gastropathy and stomach/chest pains. She is medically optimized, but it is clear in our discussions that she feels "more comfortable" in the hospital setting which is why she returns even though diagnosis is eventually terminal. Lives with her Brice, who is a fantastic and caring caregiver. They have home health 3 times a week 8a-3p and we are working on getting that increased. Our discussions involve how her diagnosis is grave, but how we'd like to keep her out of hospital setting as much as possible - her goals are to be more comfortable (pain johnson, but also day to day emotionally I suspect) and also to feel well enough to visit with family. Electronically signed by Vanita Dunn MD at Reason for Visit * Reason Onset Date Comments Hospital Follow-Up [facility] Follow-Up 03/16/2021 Encounter Details Date Type Department Care Team Description 03/16/2021 Office Visit [facility] [address] [facility] [address] Vanita Dunn MD [address] [facility] [address] Hospital discharge follow-up*; DNR (do not resuscitate); Type 2 diabetes mellitus with hemoglobin A1c goal of less than 7.0% (HCC); THAD on CPAP; Restrictive lung disease; Anginal chest pain at rest (HCC); Cirrhosis of liver without ascites, unspecified hepatic cirrhosis type (HCC); Obesity, morbid (more than 100 lbs over ideal weight or BMI > 40) (HCC); Iron deficiency anemia due to chronic blood loss; Thrombocytopenia (HCC); Acute on chronic anemia; Portal hypertensive gastropathy (HCC) Allergies Active Allergy Reactions Severity Noted Date Comments Adhesive Tape Itching 04/29/2020 Penicillins Rash 02/12/2008 Perflutren Protein A Microsph 2019 Definity-lower back pain documented as of this encounter (statuses as of 03/16/2021) Medications Medication Sig Dispensed Refills Start Date [...] 120 Vial 11 10/02/2019 Active nystatin (NYSTOP) 945610 UNIT/GM powder Apply topically to affected area [...] 60 Each 3 07/27/2020 Active Dexcom G6 Experience Specialist Device Use as directed. To test [...] Strip 3 10/29/2020 Active OneTouch Delica Plus Klwinx99V TESTING once daily 100 Each 3 10/29/2020 [...] of less than 7.0% ([facility]) Use to inject insulin four times daily; E11.42 400 Each 3 12/05/2020 Active Fluticasone Propionate 50 MCG/ACT Nasal Suspension (Flonase)Indications :Sinus congestion USE 2 SPRAYS IN EACH NOSTRIL ONCE DAILY as directed 16 g 5 12/23/2020 Active Additional Information Patient taking differently: 2 [place] Nasal DAILY PRN, Congestion, Informant: Pharmacy, Reported [...] as of this encounter (statuses as of 03/16/2021) Active Problems Problem Noted Date Portal hypertensive [...] as of this encounter (statuses as of 03/16/2021) Resolved Problems Problem Noted Date Resolved Date [...] pain 01/24/2012 01/17/2017 Genetic Sleep Disorder Research Other*[id number] 05/13/2011 04/07/2016 Obstructive sleep apnea 01/18/2011 12/27/19 [...] as of this encounter (statuses as of 03/16/2021) Immunizations Name Administration Dates Next Due COVID-19 [...] Reading Time Taken Comments Blood Pressure 116/64 03/16/2021 12:17 PM EDT Pulse 70 03/16/2021 12:17 PM EDT Temperature 37.2 C (99 F) 03/16/2021 12:17 PM EDT Respiratory Rate - - Oxygen Saturation 92% 03/16/2021 12:17 PM EDT Inhaled Oxygen Concentration - - [...] Progress Notes * Vanita Dunn MD - 03/16/2021 12:28 PM EDT ASSESSMENT / PLAN: Hospital discharge follow-up (Primary) - DISCH MED RECON CUR MED LIS - PALLIATIVE CARE REFERRAL OP DNR (do not resuscitate) - DISCH MED RECON CUR MED LIS - PALLIATIVE CARE REFERRAL OP Type 2 diabetes mellitus with hemoglobin A1c goal of less than 7.0% (HCC) - DISCH MED RECON CUR MED LIS - PALLIATIVE CARE REFERRAL OP THAD on CPAP - DISCH MED RECON CUR MED LIS - PALLIATIVE CARE REFERRAL OP Restrictive lung disease - DISCH MED RECON CUR MED LIS - PALLIATIVE CARE REFERRAL OP Anginal chest pain at rest (HCC) - DISCH MED RECON CUR MED LIS - PALLIATIVE CARE REFERRAL OP Cirrhosis of liver without ascites, unspecified hepatic cirrhosis type (HCC) - DISCH MED RECON CUR MED LIS - PALLIATIVE CARE REFERRAL OP Obesity, morbid (more than 100 lbs over ideal weight or BMI > 40) (HCC) - DISCH MED RECON CUR MED LIS - PALLIATIVE CARE REFERRAL OP Iron deficiency anemia due to chronic blood loss - DISCH MED RECON CUR MED LIS - PALLIATIVE CARE REFERRAL OP Thrombocytopenia (HCC) - DISCH MED RECON CUR MED LIS - PALLIATIVE CARE REFERRAL OP Acute on chronic anemia - DISCH MED RECON CUR MED LIS - PALLIATIVE CARE REFERRAL OP Portal hypertensive gastropathy (HCC) - PALLIATIVE CARE REFERRAL OP Here for hospital follow up. Frequent hospitalizations. Guarded prognosis discussed at length and nature of complicated diagnoses albeit her liver failure is for sure a hammer driver of her several ailmentsincluiding gastric/chest pain (gastropathy) and fatigue (anemia of chronic disease). Pt has requested DNR status in the past and remains so. We discussed utility of returning to hospital - pt verbalizes a desire to return often because she "feels more comfortable" there - her voices an understanding that going back to hospital is of limited use. Extended discussion had with regard to goals of care - "comfort" , but also pt desires to see family more, and have more energy with which to do so, and not have pain. They are willing to move forward with palliative referral, order placed. I also discussed with them if having home health there more than current 3 days a week would make things more comfortable at home, and both agree it would. Will discuss with CM. F/u 1 month. Ultimate goal to maintain pt's comfort at home and goals of care. SUBJECTIVE: Shaina Bustos is a 65 year old female. Chief Complaint Patient presents with Hospital Follow-Up [facility] Follow-Up HPI: 65 yo F who is wheelchair bound with PMHx cerebral palsy and chronic pain syndrome for which she is now wheelchair bound, cirrhosis of the liver/NG, restrictive lung disease, anemia, obesity, THAD, diabetes mellitus, hypertension, dyslipidemia, chronic venous stasis. Here for recent rehospitalization follow up. Admitted for atypical chest pain. Discharge summary reviewed: "Cardiac work-up was unrevealing. Troponins were flat. EKG without evidence of ischemia. A CT of the abdomen and pelvis showed evidence of cirrhosis but no other abnormalities. She was found to have down trend in hemoglobin to 6.4 from baseline of 11-12 since mid-February. She received 1 unit pRBC and hemoglobin stabilized in mid 7 range. Ferritin was 29, however, iron screen suggestive of anemia of chronic disease. She was given 2 doses of IV venofer. She was noted to have pancytopenia which appears chronic since 2019 and likley due to underlying NG cirrhosis. Normal haptoglobin suggest against hemolysis. Peripheral smear pending.Her abdominal symptoms mildly improved, however, she was nausea on day of discharge and given short course of zofran. Gastroenterologyperformed EGD on 03/10/21 which showed no active bleeding, but presence of portal hypertensive gastropathy and erythematous antral mucosa. These findings are likely contributing to her abdominal/epigastric pain and nausea. Pantoprazole 40 mg was continued twice daily. She was discharged to home withclose PCP follow-up. " Today: here with her Brice - voices that she "feels more comfortable" in hospital, when it comes to care and pain control and over all safety. Her Brice voices that going to the hospital seems of little use given her medical condition. "Why is her liver failing" he asks. Otherwise, she endorses low energy, and some burping this AM. He says he prefers to give her 30gm of lactulose TID instead of proposed 45 because otherwise she is incontinent of feces. Current Outpatient Medications Medication Sig Dispense Refill MEDICAL INSTRUCTIONS Please de-access patient's port. Please [...] Tabs by mouth daily. 30 Tab 5 Aspirin 81 MG Oral Tablet Chewable Take 1 Tab by mouth daily. 30 Tab 0 Atorvastatin Calcium 80 MG Oral Tablet (Lipitor) Take 1 Tab by mouth at bedtime. 30 Tab 0 Isosorbide Mononitrate ER 30 MG Oral Tablet Extended Release 24 Hour (Imdur) Take 1 Tab by mouth daily. 30 Tab 0 traMADol HCl 50 MG Oral Tablet (Ultram) Take 1 Tab by mouth every 6 hours as needed for Pain, Moderate. 30 Tab 0 Lactulose 20 GM/30ML Oral Solution (Constulose) Take 67.5 mL by mouth 3 times a day. Titrate to have 3 to 4 bowel movement every day. 2700 mL 2 Cinnamon 500 MG Oral Capsule Take 500 mg by mouth daily. Insulin Aspart 100 UNIT/ML Subcutaneous Solution (NovoLOG) Inject 32 units under the skin before breakfast, 36 units before lunch, and 36 units before supper 105 mL 3 Lantus SoloStar 100 UNIT/ML Subcutaneous Solution Pen-injector (Insulin Glargine) inject 30 units under skin at bedtime 30 mL 3 Trulicity 4.5 MG/0.5ML Subcutaneous Solution [...] four times daily; E11.42 400 Each 3 Cyclobenzaprine HCl 10 MG Oral Tablet (Flexeril) TAKE 1 TABLET BY MOUTH AT BEDTIME 30 Tab 2 traZODone HCl 50 MG Oral Tablet (Desyrel) [...] DAILY 60 Tab 5 OneTouch Delica Plus Nzwlif45E TESTING once daily 100 Each 3 OneTouch Verio In Vitro Strip (Glucose Blood) TESTING once daily 100 Strip 3 Lidocaine-Prilocaine 2.5-2.5 % External Cream (Emla) Apply topically to affected area as needed forOther (for port). APPLY TO SKIN OVER MEDIPORT & COVER 1HR PRIOR TO ACCESSING. 30 g 3 Nadolol 20 MG Oral Tablet (CORGARD) One daily 90 Tab 1 Dexcom G6 Experience Specialist Device Use as directed. To test [...] With spacer 16 g 1 nystatin (NYSTOP) 996241 UNIT/GM powder Apply topically to affected area [...] mouth daily. 1 Tab 0 OBJECTIVE: BP 116/64 | Pulse 70 | Temp 37.2 C (99 F) (Tympanic) | SpO2 92% Vitals reviewed and is normotensive afebrile and not tachycardic and not hypoxic General: No acute distress. Sitting in her wheel chair. Neuro: Alert Pleasant & interactive. Respiratory: Good inspiratory effort, no labored breathing. HEENT: Conjunctivae appear clear. No swelling noted face or lips. Skin: No rash visible on exposed skin areas, +pallor. Psych: Normal affect. Fluent speech. Vanita Dunn MD [address] [address] There are no Patient Instructions on file for this visit. documented in this encounter Nursing Notes * Tamara Fabian LPN - 03/16/2021 12:21 PM EDT Chief Complaint Patient presents with Hospital Follow-Up [facility] documented in this encounter Plan of Treatment Upcoming Encounters Date Type Specialty Care Team Description 03/16/2021 Pharmacy Pharmacy [address] [address] [phone] Type 2 diabetes mellitus with hemoglobin A1c goal of less than 7.0% (HCC)* 04/05/2021 Office Visit Family Medicine Brianne Pal PA-C [address] [place] [address] [phone] 04/07/2021 Office Visit Pharmacy [facility] [address] [place] [address] [phone] 04/09/2021 Immunization/Inject ion Hematology Oncology Nurse, Med [address] [place] [address] [phone] 04/16/2021 Office Visit Podiatry Prakash Martino, DPBelen [address] [place] [address] 04/29/2021 Appointment Radiology 05/11/2021 Office Visit Gastroenterology Sergei Sanchez P, DO [address] [place] [address] 06/07/2021 Nutrition Services Gastroenterology Melissa Omalley RDN [address] [place] [address] [phone] 07/06/2021 Office Visit Hematology Oncology Tono Sanchez MD [address] [place] [address] [phone] 07/27/2021 Office Visit Gastroenterology Lyssa Stout CRNP [address] [place] [address] [phone] 09/09/2021 Imaging Radiology Scheduled Referrals Name Type Priority Associated Diagnoses Orde r Schedule PALLIATIVE CARE REFERRAL OP Referral Within 30 days (routine) DNR (do not resuscitate) Type 2 diabetes [...] Hospital discharge follow-up Portal hypertensive gastropathy (HCC) Ordered: 03/16/2021 Health Maintenance Due Date Last Done Comments [...] of this encounter Implants Implanted Type Area [employer]ayer [employer] Device Identifier Shelf Expiration Date Model / Serial / Lot Microtech Sure Clip Implanted:Qty: 2 on 06/03/2020 by Janis Hatch DO at OR [facility] Clip N/A: Colon 04/21/2022 [facility]-F-26-2 35-C-R / / [id number] documented as of this encounter Visit Diagnoses Diagnosis Hospital discharge follow-up- Primary Other follow-up examination DNR (do not resuscitate) Do not resuscitate status Type 2 diabetes mellitus with hemoglobin A1c goal of less than 7.0% (HCC) THAD on CPAP Obstructive sleep apnea (adult) (pediatric) Restrictive lung disease Other diseases of lung, not elsewhere classified Anginal chest pain at rest (HCC) Angina decubitus Cirrhosis of liver without ascites, unspecified hepatic cirrhosis type (HCC) Obesity, morbid (more than 100 lbs over ideal weight or BMI > 40) (HCC) Morbid obesity 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 (chronic) Thrombocytopenia (HCC) Thrombocytopenia, unspecified Acute on chronic anemia Portal hypertensive gastropathy (HCC) Other specified disorder of stomach and duodenum Type 2 diabetes mellitus with hemoglobin A1c goal of less than 7.0% (HCC)- Primary documented in this encounter Advance Directives Documents on File Type Date Recorded 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
--- OUTSIDE RECORDS SUMMARY | 2023-05-10 20:56 | External Medical Summary | Summary of Care ---
Author Name Unknown Organization [facility] [place] [address] Care Team Providers Care Construction Equipment Operator Name Role Phone Vanita Dunn MD Primary Care Provid er Reason for Visit * Reason Onset Date Comments Advice 03/19/2021 Encounter Details Date Type Department Care Team Description 03/19/2021 Telephone [facility] [address] [place] [address] Vanita Dunn MD [address] [place] [address] Advice Allergies Active Allergy Reactions [...] 120 Vial 11 10/02/2019 Active nystatin (NYSTOP) 169543 UNIT/GM powder Apply topically to affected area [...] 60 Each 3 07/27/2020 Active Dexcom G6 Adjunct Faculty Device Use as directed. To test [...] once daily 100 Strip 3 10/29/2020 Active ProRadisTouch Delica Plus Nawybb55T TESTING once daily 100 Each 3 10/29/2020 [...] Active Additional Information Patient taking differently: 2 [place] Nasal DAILY PRN, Congestion, Informant: Pharmacy, Reported [...] pain 01/24/2012 01/17/2017 Genetic Sleep Disorder Research Other*[id number] 05/13/2011 04/07/2016 Obstructive sleep apnea 01/18/2011 12/27/19 [...] (15 years old or older) Yes 03/08/20 21 Cognitive Status Response Date of Assessm [...] 03/19/2021 11:01 AM EDT Vandana calling from [facility]. Saw her today. She has not had [...] Patients bowel movement Caller was transferred to [facility] at the nurse line. documented in this encounter Plan of Treatment Upcoming Encounters Date Type Specialty Care Team Description 03/24/2021 Hem/Onc Treatment Hematology Oncology [place], Chair 8 Hem Onc Scenery [address] [facility] [place] [address] [phone] 04/05/2021 Office Visit Family Medicine Brianne Pal PA-C [address] [place] [address] [phone] 04/07/2021 Office Visit Pharmacy [facility] [address] [place] [address] [phone] 04/09/2021 Immunization/Injection Hematology Oncolog y Nurse, Med [address] [place] [address] [phone] 04/16/2021 Office Visit Podiatry Prakash Martino, SIRENA [address] [place] [address] 04/29/2021 Telemedicine Palliative Medicine Kenya Johnson CRNP [address] [place] [address] [phone] 04/29/2021 Appointment Radiology 05/11/2021 Office Visit Gastroenterology Sergei Sanchez P, DO [address] [place] [address] [phone] 06/07/2021 Nutrition Services Gastroenterology Melissa Omalley, [place] [address] [facility] [place] [address] [phone] 07/06/2021 Office Visit Hematology Oncology Tono Sanchez MD [address] [place] [address] [phone] 07/27/2021 Office Visit Gastroenterology Lyssa Stout CRNP [address] [place] [address] [phone] 09/09/2021 Imaging Radiology Health Maintenance Due Date [...] of this encounter Implants Implanted Type Area E Commerce Web Developer Device Identifier Shelf Expiration Date Model / Serial / Lot Microtech Sure Clip Implanted:Qty: 2 on 06/03/2020 by Janis Hatch DO at OR [facility] Clip N/A: Colon 04/21/2022 [facility]-F-26-2 35-C-R / / [id number] documented as of this encounter Advance Directives Documents on File Type Date Recorded 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
--- OUTSIDE RECORDS SUMMARY | 2023-05-10 20:57 | External Medical Summary | Summary of Care ---
Author Name Unknown Organization [place] [address] Care Team Providers Care Standard Machine Stitcher Name Role Phone Alexandra Caceres Primary Care Provider [phone] Reason for Visit * Reason Onset Date Comments Hospital Follow-Up 03/12/2021 hem/onc disch arge Encounter Details Date Type Department Care Team Description 03/12/2021 Telephone Hematology/Oncology Treatment, [address] [address] Chelle Sanchez MD [address] [place] [address] [phone] Hospital Follow-Up (hem/onc discharge) Allergies Active Allergy [...] 120 Vial 11 10/02/2019 Active nystatin (NYSTOP) 801123 UNIT/GM powder Apply topically to affected area [...] 3 07/27/2020 Active Dexcom G6 Heavy Equipment Rental Manager Device Use as directed. To test [...] once daily 100 Strip 3 10/29/2020 Active Embee MobileTouch Delica Plus Fegmbr58V TESTING once daily 100 Each 3 10/29/2020 [...] Active Additional Information Patient taking differently: 2 [place] Nasal DAILY PRN, Congestion, Informant: Pharmacy, Reported [...] of 03/16/2021) Active Problems Problem Noted Date Anginal chest pain at rest 02/20/2021 Acute [...] pain 01/24/2012 01/17/2017 Genetic Sleep Disorder Research Other*[id number] 05/13/2011 04/07/2016 Obstructive sleep apnea 01/18/2011 12/27/19 [...] Okeefe RN - 03/12/2021 3:32 PM EDT [place] plan built. PA pending. Called patient to [...] on 03/08/2021 when she was admitted at [facility]. CT scan of the abdomen and pelvis [...] 03/12/2021 2:11 PM EDT Patient admitted at [facility] 03/07/21- 03/11/21 for chest pain. Received 2 [...] Specialty Care Team Description 03/16/2021 Pharmacy Pharmacy [facility] [address] [place], [place] [id number] Type 2 diabetes mellitus with hemoglobin A1c goal of less than 7.0% ([facility])* 04/05/2021 Office Visit Family Medicine Brianne Pal PA-C [address] [place] [address] [phone] 04/07/2021 Office Visit Pharmacy [facility] [address] [place] [address] [phone] 04/09/2021 Immunization/Inject ion Hematology Oncology Nurse, Med [address] [place] [address] [phone] 04/16/2021 Office Visit Podiatry Prakash Martino DPM [address] [place] [address] 04/29/2021 Appointment Radiology 05/11/2021 Office Visit Gastroenterology Sergei Sanchez P, DO [address] [place] [address] 06/07/2021 Nutrition Services Gastroenterology Melissa Omalley, [place] [address] [place] [address] 07/06/2021 Office Visit Hematology Oncology Chelle Sanchez MD [address] [place] [address] [phone] 07/27/2021 Office Visit Gastroenterology Lyssa Stout CRNP [address] [facility] [place] [address] [phone] 09/09/2021 Imaging Radiology Health Maintenance Due Date [...] of this encounter Implants Implanted Type Area Sandfill Operator Device Identifier Shelf Expiration Date Model / Serial / Lot Microtech Sure Clip Implanted:Qty: 2 on 06/03/2020 by Janis Hatch DO at OR [facility] Clip N/A: Colon 04/21/2022 [facility]-F-26-2 35-C-R / / [id number] documented as of this encounter Visit Diagnoses Diagnosis Iron deficiency anemia due to chronic blood loss- Primary Iron deficiency anemia secondary to blood loss (chronic) Type 2 diabetes mellitus with hemoglobin A1c goal of less than 7.0% (HCC)- Primary documented in this encounter Advance Directives Documents on File Type Date Recorded Patient Record Retrieval Specialist 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
--- OUTSIDE RECORDS SUMMARY | 2023-05-10 20:57 | External Medical Summary | Summary of Care ---
Author Name Unknown Organization [place] [address] Care Team Providers Care Office Machine Mechanic Name Role Phone Vanita Dunn MD Primary Care Provid er Reason for Visit * Reason Onset Date Comments Hospital Follow-Up 03/12/2021 hem/onc disch arge Encounter Details Date Type Department Care Team Description 03/12/2021 Telephone Hematology/Oncology Treatment, [address] [address] Chelle Sanchez MD [address] [place] [address] [phone] Hospital Follow-Up (hem/onc discharge) Allergies Active Allergy [...] 120 Vial 11 10/02/2019 Active nystatin (NYSTOP) 860332 UNIT/GM powder Apply topically to affected area [...] 60 Each 3 07/27/2020 Active Dexcom G6 Escrow Officer Device Use as directed. To test [...] once daily 100 Strip 3 10/29/2020 Active GorbTouch Delica Plus Aizayr96N TESTING once daily 100 Each 3 10/29/2020 [...] Active Additional Information Patient taking differently: 2 [place] Nasal DAILY PRN, Congestion, Informant: Pharmacy, Reported [...] pain 01/24/2012 01/17/2017 Genetic Sleep Disorder Research Other*[id number] 05/13/2011 04/07/2016 Obstructive sleep apnea 01/18/2011 12/27/19 [...] iron infusion. (1.5 hr) Left number of [phone] Option 1. * Telephone Encounter - Cassie Barboza RN - 03/16/2021 1:20 PM EDT Referral entered. Scheduling: please call patient to schedule 1.5 hour appt on 503 schedule "monoferric" (Daniel). Thanks! One appt needed. * Telephone Encounter - Francine Okeefe RN - 03/12/2021 3:32 PM EDT [place] plan built. [place] pending. Called patient to [...] on 03/08/2021 when she was admitted at [facility]. CT scan of the abdomen and pelvis [...] 03/12/2021 2:11 PM EDT Patient admitted at [facility] 03/07/21- 03/11/21 for chest pain. Received 2 [...] Specialty Care Team Description 03/16/2021 Pharmacy Pharmacy [facility] [address] [place] [address] [phone] Type 2 diabetes mellitus with hemoglobin A1c goal of less than 7.0% ([facility])* 04/05/2021 Office Visit Family Medicine Brianne Pal PA-C [address] [place] [address] [phone] 04/07/2021 Office Visit Pharmacy [facility] [address] [place] [address] [phone] 04/09/2021 Immunization/Inject ion Hematology Oncology Nurse, [facility] [address] [facility] [address] [phone] 04/16/2021 Office Visit Podiatry Prakash Martino, SIRENA [address] [place] [address] 04/29/2021 Appointment Radiology 05/11/2021 Office Visit Gastroenterology Sergei Sanchez, DO [address] [place] [address] 06/07/2021 Nutrition Services Gastroenterology Melissa Omalley, SAMANTHA [address] [place] [address] 07/06/2021 Office Visit Hematology Oncology Chelle Sanchez MD [address] [place] [address] [phone] 07/27/2021 Office Visit Gastroenterology Lyssa Stout CRNP [address] [place] [address] [phone] 09/09/2021 Imaging Radiology Health Maintenance Due Date [...] of this encounter Implants Implanted Type Area Major Sales Associate Device Identifier Shelf Expiration Date Model / Serial / Lot Microtech Sure Clip Implanted:Qty: 2 on 06/03/2020 by Janis Hatch DO at OR [facility] Clip N/A: Colon 04/21/2022 [facility]-F-26-2 35-C-R / / [id number] documented as of this encounter Visit Diagnoses Diagnosis Iron deficiency anemia due to chronic blood loss- Primary Iron deficiency anemia secondary to blood loss (chronic) Type 2 diabetes mellitus with hemoglobin A1c goal of less than 7.0% (HCC)- Primary documented in this encounter Advance Directives Documents on File Type Date Recorded Patient Dough Brake Machine Operator Expl 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
--- OUTSIDE RECORDS SUMMARY | 2023-05-10 20:57 | External Medical Summary | Summary of Care ---
Author Name Unknown Organization [place] [address] Care Team Providers Care Face Man Name Role Phone Vanita Dunn MD Primary Care Provid er Reason for Visit * Reason Onset Date Comments Hospital Follow-Up 03/12/2021 hem/onc disch arge Encounter Details Date Type Department Care Team Description 03/12/2021 Telephone Hematology/Oncology Treatment, [address] [address] Chelle Sanchez MD [address] [place] [address] [phone] Hospital Follow-Up (hem/onc discharge) Allergies Active Allergy [...] 120 Vial 11 10/02/2019 Active nystatin (NYSTOP) 435650 UNIT/GM powder Apply topically to affected area [...] 60 Each 3 07/27/2020 Active Dexcom G6 Framing Manager Device Use as directed. To test [...] once daily 100 Strip 3 10/29/2020 Active Tianpin.comTouch Delica Plus Biqqhq54A TESTING once daily 100 Each 3 10/29/2020 [...] less than 7.0% ([facility]) Use to inject insulin four times daily; E11.42 400 Each 3 12/05/2020 Active Fluticasone Propionate 50 MCG/ACT Nasal Suspension (Flonase)Indication s:Sinus congestion USE 2 SPRAYS IN EACH NOSTRIL ONCE DAILY as directed 16 g 5 12/23/2020 Active Additional Information Patient taking differently: 2 [place] Nasal DAILY PRN, Congestion, Informant: Pharmacy, Reported [...] pain 01/24/2012 01/17/2017 Genetic Sleep Disorder Research Other*[id number] 05/13/2011 04/07/2016 Obstructive sleep apnea 01/18/2011 12/27/19 [...] scheduled for "Monoferric" iron infusion. (1.5 hr) * Telephone Encounter - Cassie Barboza RN - 03/16/2021 1:20 PM EDT Referral entered. Scheduling: please call patient to schedule 1.5 hour appt on 503 schedule "monoferric" (Daniel). Thanks! One appt needed. * Telephone Encounter - Francine Okeefe RN - 03/12/2021 3:32 PM EDT [place] plan built. [place] pending. Called patient to [...] on 03/08/2021 when she was admitted at [facility]. CT scan of the abdomen and [...] 2:11 PM EDT Patient admitted at [facility] 03/07/21- 03/11/21 for chest pain. Received 2 [...] Specialty Care Team Description 03/16/2021 Pharmacy Pharmacy [facility] [address] [place] [address] [phone] Type 2 diabetes mellitus with hemoglobin A1c goal of less than 7.0% ([facility])* 04/05/2021 Office Visit Family Medicine Brianne Pal PA-C [address] [place] [address] [phone] 04/07/2021 Office Visit Pharmacy [facility] [address] [place] [address] [phone] 04/09/2021 Immunization/Inject ion Hematology Oncology Nurse, Med 4 [address] [facility] [address] [phone] 04/16/2021 Office Visit Podiatry Prakash Martino, DPBelen [address] [place] [address] 04/29/2021 Appointment Radiology 05/11/2021 Office Visit Gastroenterology Sergei aSnchez, DO [address] [facility] [address] 06/07/2021 Nutrition Services Gastroenterology Melissa Omalley, SAMANTHA [address] [place] [id number] 07/06/2021 Office Visit Hematology Oncology Chelle Sanchez MD 200 [facility] [address] 07/27/2021 Office Visit Gastroenterology [facility]sa Stout [facility]NP [address] [facility] [address] 09/09/2021 Imaging Radiology Health Maintenance Due [...] of this encounter Implants Implanted Type Area Sanitary Chemist Device Identifier Shelf Expiration Date Model / Serial / Lot Microtech Sure Clip Implanted:Qty: 2 on 06/03/2020 by Janis Hatch DO at OR [facility] Clip N/A: Colon 04/21/2022 [facility]-F-26-2 35-C-R / / [id number] documented as of this encounter Visit Diagnoses Diagnosis Iron deficiency anemia due to chronic blood loss- Primary Iron deficiency anemia secondary to blood loss (chronic) Type 2 diabetes mellitus with hemoglobin A1c goal of less than 7.0% (HCC)- Primary documented in this encounter Advance Directives Documents on File Type Date Recorded Patient Cone Operator 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
--- OUTSIDE RECORDS SUMMARY | 2023-05-10 20:57 | External Medical Summary | Summary of Care ---
Author Name Unknown Organization [facility] [place] [address] Care Team Providers Care Pressurised Container Filler Name Role Phone Alexandra Caceres Primary Care Provider [phone] Reason for Visit * Reason Comments Dosage Adjustment Via Phone (anticoag Cl inic) Diabetes Follow-Up Encounter Details Date Type Department Care Team Description 03/16/2021 Pharmacy Pharmacy, [place] [address] [place] [address] [facility] [address] [place] [address] [phone] Type 2 diabetes mellitus with hemoglobin A1c goal of less than 7.0% ([facility])* Allergies Active Allergy Reactions Severity Noted [...] 120 Vial 11 10/02/2019 Active nystatin (NYSTOP) 375181 UNIT/GM powder Apply topically to affected area [...] 60 Each 3 07/27/2020 Active Dexcom G6 Deli Bakery Clerk Device Use as directed. To test [...] Strip 3 10/29/2020 Active OneTouch Delica Plus Dsvwhi75U TESTING once daily 100 Each 3 10/29/2020 [...] Active Additional Information Patient taking differently: 2 [place] Nasal DAILY PRN, Congestion, Informant: Pharmacy, Reported [...] deficiency 09/26/2013 Primary osteoarthritis of right knee 07/ 09/2012 Lymphedema 03/11/2013 Intermittent asthma with reliever [...] pain 01/24/2012 01/17/2017 Genetic Sleep Disorder Research Other*[id number] 05/13/2011 04/07/2016 Obstructive sleep apnea 01/18/2011 12/27/19 [...] this encounter Progress Notes * Indira Hudson [facility] - 03/16/2021 9:05 AM EDT Patient missed last MTM DM appt due to being admitted to [facility]. Patient admitted to [facility] 03/07 to 03/11 due to chest discomfort and left upper abdominal pain. Cardiac work-up was unrevealing. A CT of the abdomen and pelvis showed evidence of cirrhosis but no other abnormalities. Given 1 unit of blood due to low blood counts. Patient will follow-up with hematology. GI performed an EGD 03/10/21 which showed no active bleeding, however did show redness and portal hypertensive gastropathy (irriated lining of the stomach due to cirrhosis). Discharged to home with [facility] Continued protonix 40 mg twice daily and Rifaximin x 30 days. No changes made to DM medications. A1C on 03/08 was 8.5%. Patient Phone Numbers Called and spoke with patient's . Rescheduled [facility] appt for 04/07. Patient to contact clinic with any issues. Indira Hudson RP, Pharm D, BCACP Clinical Pharmacist 03/16/21 9:20 AM documented in this encounter Plan of Treatment Upcoming Encounters Date Type Specialty Care Team Description 03/16/2021 Office Visit Family Medicine Vanita Dunn MD [address] [place] [address] [phone] 04/05/2021 Office Visit Family Medicine Brianne Pal PA-C [address] [place] [address] [phone] 04/07/2021 Office Visit Pharmacy [facility] [address] [place] [address] [phone] 04/09/2021 Immunization/Injection Hematology Oncolog y Nurse, Med 4 [address] [place] [address] [phone] 04/16/2021 Office Visit Podiatry Prakash Martino DPM [address] [place] [address] 04/29/2021 Appointment Radiology 05/11/2021 Office Visit Gastroenterology Sergei Sanchez P, DO [address] [facility] [address] [phone] 06/07/2021 Nutrition Services Gastroenterology Melissa Omalley, [place] [address] [place] [address] [phone] 07/06/2021 Office Visit Hematology Oncology Tono Sanchez MD 200 [place] [address] [phone] 07/27/2021 Office Visit Gastroenterology Lyssa Stout CRNP [address] [facility] [address] 09/09/2021 Imaging Radiology Health Maintenance Due [...] of this encounter Implants Implanted Type Area Arch Cushion Skiving Machine Operator Device Identifier Shelf Expiration Date Model / Serial / Lot Microtech Sure Clip Implanted:Qty: 2 on 06/03/2020 by Janis Hatch DO at OR [facility] Clip N/A: Colon 04/21/2022 [facility]-F-26-2 35-C-R / / [id number] documented as of this encounter Visit Diagnoses Diagnosis Type 2 diabetes mellitus with hemoglobin A1c goal of less than 7.0% (HCC)- Primary documented in this encounter Advance Directives Documents on File Type Date Recorded Patient Telecommunications Officer 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
--- OUTSIDE RECORDS SUMMARY | 2023-05-10 20:58 | External Medical Summary | Summary of Care ---
Author Name Unknown Organization [place] [address] Care Team Providers Care Laborer Pipeline Name Role Phone Alexandra Caceres Primary Care Provider [phone] Reason for Visit * Reason Onset Date Comments Home Health 03/12/2021 Order request Encounter Details Date Type Department Care Team Description 03/12/2021 Telephone Hematology/Oncology [facility] [address] [place] [address] Tono Sanchez MD [address] [place] [address] [phone] Home Health (Order request) Allergies Active Allergy Reactions Severity Noted Date Comments Adhesive Tape Itching 04/29/2020 Penicillins Rash 02/12/2008 Perflutren Protein A Microsph 2019 Definity-lower back pain documented as of this encounter (statuses as of 03/12/2021) Medications Medication Sig Dispensed Refills Start Date [...] 120 Vial 11 10/02/2019 Active nystatin (NYSTOP) 180452 UNIT/GM powder Apply topically to affected area [...] 60 Each 3 07/27/2020 Active Dexcom G6 Cash Grain Farmer Device Use as directed. To test blood [...] Strip 3 10/29/2020 Active OneTouch Delica Plus Legast83E TESTING once daily 100 Each 3 10/29/2020 [...] Active Additional Information Patient taking differently: 2 [place] Nasal DAILY PRN, Congestion, Informant: Pharmacy, Reported [...] less than 7.0% ([facility]) inject 30 units under skin at bedtime [...] 2 days. 6 Tab 0 03/11/2021 03/13/2021 Active MEDICAL INSTRUCTIONSIndicat ions:Iron deficiency anemia due to chronic blood loss Please de-access patient's port. Please flush with 10 mL of NS, followed by 500 units (5 mL) of heparin. 1 Each 0 03/12/2021 Active documented as of this encounter (statuses as of 03/12/2021) Active Problems Problem Noted Date Anginal chest [...] as of this encounter (statuses as of 03/12/2021) Resolved Problems Problem Noted Date Resolved Date [...] pain 01/24/2012 01/17/2017 Genetic Sleep Disorder Research Other*[id number] 05/13/2011 04/07/2016 Obstructive sleep apnea 01/18/2011 12/27/19 [...] as of this encounter (statuses as of 03/12/2021) Immunizations Name Administration Dates Next Due COVID-19 [...] Encounter - Francine Okeefe RN - 03/12/2021 3:30 PM EDT Faxed order to number provided. * Telephone Encounter - Georgia Nunez OSA - 03/12/2021 3:01 PM EDT Kaylee calling in from [facility]. She is needing a order to de access pt's port. She was sent home from the hospital with access. Order can either be called to call to [facility] Or faxed at [phone] Pt's Money Market Clerk with Home Health [phone] - [facility] documented in this encounter Plan of Treatment Upcoming Encounters Date Type Specialty Care Team Description 03/16/2021 Office Visit Family Medicine Vanita Dunn MD [address] [place] [address] [phone] 03/16/2021 Pharmacy Pharmacy [facility] [address] [place], [place] [address] 04/05/2021 Office Visit Family Medicine Brianne Pal PA-C [address] [place] [address] 04/09/2021 Immunization/Injection Hematology Oncolog y Nurse, Med 4 [address] [place] [address] [phone] 04/16/2021 Office Visit Podiatry Prakash Martino, SIRENA [address] [place] [address] 04/29/2021 Appointment Radiology 05/11/2021 Office Visit Gastroenterology Sergei Sanchez P, DO [address] [facility] [place] [address] 06/07/2021 Nutrition Services Gastroenterology Melissa Omalley, SAMANTHA [address] [place] [address] [phone] 07/06/2021 Office Visit Hematology Oncology Tono Sanchez MD 200 [place] [address] [phone] 07/27/2021 Office Visit [facility]astroenterology [facility]out [facility]NP [address] [facility] [place] [address] [phone] 09/09/2021 Imaging Radiology Health Maintenance Due Date [...] of this encounter Implants Implanted Type Area Hand Edge Bander Device Identifier Shelf Expiration Date Model / Serial / Lot Microtech Sure Clip Implanted:Qty: 2 on 06/03/2020 by Janis aHtch DO at OR [facility] Clip N/A: Colon 04/21/2022 [facility]-F-26-2 35-C-R / / [id number] documented as of this encounter Visit Diagnoses Diagnosis Iron deficiency anemia due to chronic blood loss- Primary Iron deficiency anemia secondary to blood loss (chronic) documented in this encounter Advance Directives Documents on File Type Date Recorded Patient Cad Draftsman 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
--- OUTSIDE RECORDS SUMMARY | 2023-05-10 20:58 | External Medical Summary | Summary of Care ---
Author Name Unknown Organization [place] [address] Care Team Providers Care Laborer Pie Bakery Name Role Phone Alexandra Caceres Primary Care Provider [phone] Reason for Visit * Reason Onset Date Comments Hospital Follow-Up 03/12/2021 hem/onc disch arge Encounter Details Date Type Department Care Team Description 03/12/2021 Telephone Hematology/Oncology Treatment, [address] [address] Chelle Sanchez MD [address] [place] [address] [phone] Hospital Follow-Up (hem/onc discharge) Allergies Active Allergy [...] 120 Vial 11 10/02/2019 Active nystatin (NYSTOP) 942891 UNIT/GM powder Apply topically to affected area [...] 60 Each 3 07/27/2020 Active Dexcom G6 Email Marketing Intern Device Use as directed. To [...] once daily 100 Strip 3 10/29/2020 Active LotedaTouch Delica Plus Trscof26D TESTING once daily 100 Each 3 10/29/2020 [...] Active Additional Information Patient taking differently: 2 [place] Nasal DAILY PRN, Congestion, Informant: Pharmacy, Reported [...] days. 6 Tab 0 03/11/2021 03/13/2021 Active documented as of this encounter (statuses [...] pain 01/24/2012 01/17/2017 Genetic Sleep Disorder Research Other*[id number] 05/13/2011 04/07/2016 Obstructive sleep apnea 01/18/2011 12/27/19 [...] Okeefe RN - 03/12/2021 3:32 PM EDT [place] plan built. [place] pending. Called patient to [...] on 03/08/2021 when she was admitted at [facility]. CT scan of the abdomen and pelvis [...] 03/12/2021 2:11 PM EDT Patient admitted at [facility] 03/07/21- 03/11/21 for chest pain. Received 2 [...] Medicine Vanita Dunn MD [address] [place] [address] 03/16/2021 Pharmacy Pharmacy [facility] [address] [place] [address] 04/05/2021 Office Visit Family Medicine Brianne Pal PA-C [address] [place] [address] 04/09/2021 Immunization/Injection Hematology Oncolog y Nurse, Med 4 [address] [place] [address] [phone] 04/16/2021 Office Visit Podiatry Prakash Martino, SIRENA [address] [place] [address] 04/29/2021 Appointment Radiology 05/11/2021 Office Visit Gastroenterology Sergei Sanchez P, DO [address] [place] [address] 06/07/2021 Nutrition Services Gastroenterology Melissa Omalley RDN [address] [facility] [place] [address] 07/06/2021 Office Visit Hematology Oncology Chelle Sanchez MD [address] [place] [address] [phone] 07/27/2021 Office Visit Gastroenterology Lyssa Stout CRNP [address] [place] [address] [phone] 09/09/2021 Imaging Radiology Health Maintenance Due Date [...] of this encounter Implants Implanted Type Area Poultry Service Technician Device Identifier Shelf Expiration Date Model / Serial / Lot Microtech Sure Clip Implanted:Qty: 2 on 06/03/2020 by Janis Hatch DO at OR [facility] Clip N/A: Colon 04/21/2022 [facility]-F-26-2 35-C-R / / [id number] documented as of this encounter Visit Diagnoses Diagnosis Iron deficiency anemia due to chronic blood loss- Primary Iron deficiency anemia secondary to blood loss (chronic) documented in this encounter Advance Directives Documents on File Type Date Recorded Patient Process Controller 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
--- OUTSIDE RECORDS SUMMARY | 2023-05-10 20:58 | External Medical Summary | Summary of Care ---
Author Name Unknown Organization [facility] Address [facility] [place] [address] Care Team Providers Care Manager Metrology Name Role Phone Alexandra Caceres Primary Care Provider [phone] Encounter Details Date Type Department Care Team Description 03/12/2021 Orders Only Hematology/Oncology Treatment, [address] [address] Tono Sanchez MD [address] [place], [place] [address] Allergies Active Allergy Reactions Severity Noted Date [...] 120 Vial 11 10/02/2019 Active nystatin (NYSTOP) 706100 UNIT/GM powder Apply topically to affected area [...] 60 Each 3 07/27/2020 Active Dexcom G6 Garden Implement Mechanic Device Use as directed. To test [...] Strip 3 10/29/2020 Active OneTouch Delica Plus Lyocro97I TESTING once daily 100 Each 3 10/29/2020 [...] of less than 7.0% ([facility]) Use to inject insulin four times daily; E11.42 400 Each 3 12/05/2020 Active Fluticasone Propionate 50 MCG/ACT Nasal Suspension (Flonase)Indication s:Sinus congestion USE 2 SPRAYS IN EACH NOSTRIL ONCE DAILY as directed 16 g 5 12/23/2020 Active Additional Information Patient taking differently: 2 [place] Nasal DAILY PRN, Congestion, Informant: Pharmacy, Reported [...] less than 7.0% ([facility]) inject 30 units under skin at bedtime [...] pain 01/24/2012 01/17/2017 Genetic Sleep Disorder Research Other*[id number] 05/13/2011 04/07/2016 Obstructive sleep apnea 01/18/2011 12/27/19 [...] days, mean 12, average 14.4, AHI 6.7 3/28/11 -- unable to change to auto CPAP, [...] No 03/08/2021 documented as of this encounter Plan of Treatment Upcoming Encounters Date Type Specialty Care Team Description 03/16/2021 Office Visit Family Medicine Vanita Dunn MD [address] [facility] [place] [address] [phone] 03/16/2021 [facility] [address] [place] [address] [phone] 04/05/2021 Office Visit Family Medicine Brianne Pal PA-C [address] [facility] [place] [address] [phone] 04/09/2021 Immunization/Injection Hematology Oncolog y Nurse, Med 4 [address] [place] [address] [phone] 04/16/2021 Office Visit Podiatry Prakash Martino, DPM [address] [place] [address] 04/29/2021 Appointment Radiology 05/11/2021 Office Visit Gastroenterology Sergei Sanchez P, DO [address] [place] [address] 06/07/2021 Nutrition Services Gastroenterology Melissa Omalley, SAMANTHA [address] [place] [address] [phone] 07/06/2021 Office Visit Hematology Oncology Tono Sanchez MD [address] [place] [address] [phone] 07/27/2021 Office Visit Gastroenterology Lyssa Stout CRNP [address] [place] [address] [phone] 09/09/2021 Imaging Radiology Health Maintenance Due Date [...] of this encounter Implants Implanted Type Area Inspection And Testing Supervisor Device Identifier Shelf Expiration Date Model / Serial / Lot Microtech Sure Clip Implanted:Qty: 2 on 06/03/2020 by Janis Hatch DO at OR [facility] Clip N/A: Colon 04/21/2022 [facility]-F-26-2 35-C-R / / [id number] documented as of this encounter Advance Directives Documents on File Type Date Recorded Patient Veneer Puller 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
--- OUTSIDE RECORDS SUMMARY | 2023-05-10 20:58 | External Medical Summary | Summary of Care ---
Author Name Unknown Organization [place] [address] Care Team Providers Care Rehabilitation Technician Name Role Phone Alexandra Caceres Primary Care Provider [phone] Reason for Visit * Reason Onset Date Comments Home Health 03/12/2021 Order request Encounter Details Date Type Department Care Team Description 03/12/2021 Telephone Hematology/Oncology [facility] [address] [place] [address] Tono Sanchez MD [address] [place] [address] [phone] Home Health (Order request) Allergies Active Allergy [...] 120 Vial 11 10/02/2019 Active nystatin (NYSTOP) 552743 UNIT/GM powder Apply topically to affected area [...] 60 Each 3 07/27/2020 Active Dexcom G6 Er Manager Device Use as directed. To test [...] Strip 3 10/29/2020 Active OneTouch Delica Plus [id number] TESTING once daily 100 Each 3 10/29/2020 [...] Active Additional Information Patient taking differently: 2 [place] Nasal DAILY PRN, Congestion, Informant: Pharmacy, [...] less than 7.0% ([facility]) inject 30 units under skin [...] pain 01/24/2012 01/17/2017 Genetic Sleep Disorder Research Other*[id number] 05/13/2011 04/07/2016 Obstructive sleep apnea 01/18/2011 12/27/19 [...] Encounter - Francine Okeefe RN - 03/12/2021 4:26 PM EDT Received a call from [facility] she states that she doesn't have the supplies to de- access patient. Explained that if they do not have supplies. Pt should be advised to go back to ER to have it de-accessed. [facility] verbalizes understanding will have pt go to ER to be de-accessed. * Telephone Encounter - Francine Okeefe RN - 03/12/2021 3:30 PM EDT Faxed order to number provided. * Telephone Encounter - Georgia Nunez OSA - 03/12/2021 3:01 PM EDT Kaylee calling in from [facility]. She is needing a order to de access pt's port. She was sent home from the hospital with access. Order can either be called to call to [facility] Or faxed at [phone] Pt's Brim Molder with Home Health [phone] - Suyapa documented in this encounter Plan of Treatment Upcoming Encounters Date Type Specialty Care Team Description 03/16/2021 Office Visit Family Medicine Vanita Dunn MD [address] [place] [address] [phone] 03/16/2021 Pharmacy Pharmacy [facility] [address] [place] [address] [phone] 04/05/2021 Office Visit Family Medicine Brianne Pal PA-C [address] [place] [address] [phone] 04/09/2021 Immunization/Injection Hematology Oncolog y Nurse, Med 4 [address] [place] [address] [phone] 04/16/2021 Office Visit Podiatry Prakash Martino, SIRENA [address] [place], [place] [address] 04/29/2021 Appointment Radiology 05/11/2021 Office Visit Gastroenterology Sergei Sanchez P, DO [address] [facility] [address] 06/07/2021 Nutrition Services Gastroenterology Melissa Omalley, [place] [address] [place] [address] [phone] 07/06/2021 Office Visit Hematology Oncology Tono Sanchez MD 200 [place] [address] [phone] 07/27/2021 Office Visit Gastroenterology Lyssa Stout CRNP 132 [facility] [place] [address] [phone] 09/09/2021 Imaging Radiology Health Maintenance Due Date [...] this encounter Implants Implanted Type Area Software Technical Lead Device Identifier Shelf Expiration Date Model / Serial / Lot Microtech Sure Clip Implanted:Qty: 2 on 06/03/2020 by Janis Hatch DO at OR [facility] Clip N/A: Colon 04/21/2022 [facility]-F-26-2 35-C-R / / [id number] documented as of this encounter Visit Diagnoses Diagnosis Iron deficiency anemia due to chronic blood loss- Primary Iron deficiency anemia secondary to blood loss (chronic) documented in this encounter Advance Directives Documents on File Type Date Recorded Patient Rn Iv Therapy 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
--- OUTSIDE RECORDS SUMMARY | 2023-05-10 20:59 | External Medical Summary | Summary of Care ---
Author Name Unknown Organization [place] [address] Care Team Providers Care Restaurant Greeter Name Role Phone Alexandra Caceres Primary Care Provider [phone] Reason for Visit * Reason Onset Date Comments Hospital Follow-Up 03/12/2021 hem/onc disch arge Encounter Details Date Type Department Care Team Description 03/12/2021 Telephone Hematology/Oncology Treatment, [address] [address] oTno Sanchez MD [address] [place] [address] [phone] Hospital Follow-Up (hem/onc discharge) Allergies Active Allergy [...] 120 Vial 11 10/02/2019 Active nystatin (NYSTOP) 424989 UNIT/GM powder Apply topically to affected area [...] 60 Each 3 07/27/2020 Active Dexcom G6 Tire Tester Device Use as directed. To test [...] once daily 100 Strip 3 10/29/2020 Active MakeblockTouch Delica Plus Izpoxw39C TESTING once daily 100 Each 3 10/29/2020 [...] Active Additional Information Patient taking differently: 2 [place] Nasal DAILY PRN, Congestion, Informant: Pharmacy, Reported [...] pain 01/24/2012 01/17/2017 Genetic Sleep Disorder Research Other*[id number] 05/13/2011 04/07/2016 Obstructive sleep apnea 01/18/2011 12/27/19 [...] 03/12/2021 2:11 PM EDT Patient admitted at [facility] 03/07/21- 03/11/21 for chest pain. Received 2 [...] Family Medicine Vanita Dunn MD [address] [place], [place] [id number] 03/16/2021 Pharmacy Pharmacy [facility] [address] [place], [place] [id number] 04/05/2021 Office Visit Family Medicine Brianne Pal PA-C [address] [place] [address] 04/09/2021 Immunization/Injection Hematology Oncolog y Nurse, Med 4 [address] [place] [address] [phone] 04/16/2021 Office Visit Podiatry Prakash Martino, DPBelen [address] [place] [address] 04/29/2021 Appointment Radiology 05/11/2021 Office Visit Gastroenterology Sergei Sanchez P, DO [address] [place] [address] 06/07/2021 Nutrition Services Gastroenterology Melissa Omalley, SAMANTHA 310 [facility] 230 [facility] [place] [address] 07/06/2021 Office Visit Hematology Oncology Tono Sanchez MD [address] [place] [address] [phone] 07/27/2021 Office Visit Gastroenterology Lyssa Stout, ZAK [address] [place] [address] [phone] 09/09/2021 Imaging Radiology Health Maintenance Due Date [...] of this encounter Implants Implanted Type Area Photogravure Press Operator Device Identifier Shelf Expiration Date Model / Serial / Lot Microtech Sure Clip Implanted:Qty: 2 on 06/03/2020 by Janis Hatch DO at OR [facility] Clip N/A: Colon 04/21/2022 [facility]-F-26-2 35-C-R / / [id number] documented as of this encounter Advance Directives Documents on File Type Date Recorded Patient Plastics Nurse 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 Code 01/30/2021 10:59 PM 02/02/2021 7:01 PM Thi s order reflects the patients [...]
--- OUTSIDE RECORDS SUMMARY | 2023-05-10 20:59 | External Medical Summary | Summary of Care ---
Author Name Unknown Organization [place] [address] Care Team Providers Care Senior Hydrogeologist Name Role Phone Alexandra Caceres Primary Care Provider [phone] Reason for Visit * Reason Onset Date Comments Hospital Follow-Up 03/12/2021 hem/onc disch arge Encounter Details Date Type Department Care Team Description 03/12/2021 Telephone Hematology/Oncology Treatment, [address] [address] Tono Sanchez MD [address] [place] [address] [phone] Hospital Follow-Up (hem/onc discharge) Allergies Active Allergy [...] 120 Vial 11 10/02/2019 Active nystatin (NYSTOP) 898307 UNIT/GM powder Apply topically to affected area [...] 60 Each 3 07/27/2020 Active Dexcom G6 Corrugator Machine Operator Device Use as directed. To [...] once daily 100 Strip 3 10/29/2020 Active AmaraTouch Delica Plus Jjecnk71H TESTING once daily 100 Each 3 10/29/2020 [...] Active Additional Information Patient taking differently: 2 [place] Nasal DAILY PRN, Congestion, Informant: Pharmacy, Reported [...] pain 01/24/2012 01/17/2017 Genetic Sleep Disorder Research Other*[id number] 05/13/2011 04/07/2016 Obstructive sleep apnea 01/18/2011 12/27/19 [...] 03/12/2021 2:11 PM EDT Patient admitted at [facility] 03/07/21- 03/11/21 for chest pain. Received 2 [...] Family Medicine Vanita Dunn MD [address] [place], [place] [phone] 03/16/2021 Pharmacy Pharmacy [facility] [address] [place], [place] [address] 04/05/2021 Office Visit Family Medicine Brianne Pal PA-C [address] [place] [address] 04/09/2021 Immunization/Injection Hematology Oncolog y Nurse, Med 4 [address] [place] [address] [phone] 04/16/2021 Office Visit Podiatry Prakash Martino, DPBelen [address] [place] [address] 04/29/2021 Appointment Radiology 05/11/2021 Office Visit Gastroenterology Sergei Sanchez P, DO [address] [place] [address] 06/07/2021 Nutrition Services Gastroenterology Melissa Omalley, SAMANTHA 310 [facility] 230 [facility] [place] [address] 07/06/2021 Office Visit Hematology Oncology Tono Sanchez MD [address] [place] [address] [phone] 07/27/2021 Office Visit Gastroenterology Lyssa Stout, ZAK [address] [address] [phone] 09/09/2021 Imaging Radiology Health Maintenance Due Date [...] of this encounter Implants Implanted Type Area Penciller Device Identifier Shelf Expiration Date Model / Serial / Lot Microtech Sure Clip Implanted:Qty: 2 on 06/03/2020 by Janis Hatch DO at OR [facility] Clip N/A: Colon 04/21/2022 [facility]-F-26-2 35-C-R / / [id number] documented as of this encounter Advance Directives Documents on File Type Date Recorded Patient Rigger Third 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
--- OUTSIDE RECORDS SUMMARY | 2023-05-10 20:59 | External Medical Summary | Summary of Care ---
Author Name Unknown Organization [facility] Address [place] [address] Care Team Providers Care Inward Toll Operator Name Role Phone QamarkleberAlexandra fernandez Primary Care Provider Encounter Details Date Type Department Care Team Description 03/12/2021 Night Warehouse SelectorInternal [facility] [address] [place] [address] Connie Arguello, UMA [address] [place] [address] Acute on chronic heart failure with preserved ejection fraction (HFpEF) ([facility])* Allergies Active Allergy Reactions Severity [...] 120 Vial 11 10/02/2019 Active nystatin (NYSTOP) 082524 UNIT/GM powder Apply topically to affected area [...] 60 Each 3 07/27/2020 Active Dexcom G6 Card Cutter Device Use as directed. To test [...] Strip 3 10/29/2020 Active OneTouch Delica Plus [id number] TESTING once daily 100 Each 3 10/29/2020 [...] Active Additional Information Patient taking differently: 2 [place] Nasal DAILY PRN, Congestion, Informant: Pharmacy, Reported [...] less than 7.0% ([facility]) inject 30 units under skin [...] pain 01/24/2012 01/17/2017 Genetic Sleep Disorder Research Other*[id number] 05/13/2011 04/07/2016 Obstructive sleep apnea 01/18/2011 12/27/19 [...] Progress Notes * Connie Arguello, UMA - 03/12/2021 2:03 PM EDT Case Management Assessment-spoke with patient & her Dilip, patient s/p hospitalization [place] [facility] [place] with complaints of chest pain, [...] day Is this call for a hospital, snf or rehab facility discharge to home? Yes see above S: Reports: Patient states she has a little SOB at times, no complaints of cough today Has a little epigastric discomfort but it is better, has a little LE edema Patient using O2 at night Patient has a good appetite, denies bowel/bladder complaints Patient says she has some difficulty swallowing at times, encouraged to eat soft food, chew well, take small bites No skin issues, sleeping okay at night Blood sugars running 160-200 Patient remains non-ambulatory, uses a candace lift to transfer patient from bed to a chair Syed states patients caregiver was at the home at time of call [facility] at the home this morning Confirmed upcoming follow up appointment with Dr. Dunn on 03/16/21 O: Phone visit for post hospitalization. Medications: takes all medications as prescribed. Does [...] to communicate, understand instructions, process information. P: Night Warehouse Selector Interventions: Encouraged patient/ to call with increased SOB , cough, fever, chills, constipation --Constipation: Increase activity Drink plenty of fluids [...] in health status or questions concerning care PCP Notified of enrollment in CM/HM program: Yes SNP Member? No Re-evaluation of plan of care and progress towards goals achievement: Plan to call patient next week to reassess and update plan of care, verbalizes understanding and agrees with plan. Connie Arguello, RN Outpatient Night Warehouse Selector documented in this encounter Plan of Treatment Upcoming Encounters Date Type Specialty Care Team Description 03/16/2021 Office Visit Family Medicine Vanita Dunn MD [address] [place] [address] [phone] 03/16/2021 Pharmacy Pharmacy [facility] [address], [place] [phone] 04/05/2021 Office Visit Family Medicine Brianne Pal PA-C [address] [place], [place] [address] 04/09/2021 Immunization/Injection Hematology Oncolog y Nurse, Med 4 [address] [place] [address] [phone] 04/16/2021 Office Visit Podiatry Prakash Martino, SIRENA [address] [place] [address] 04/29/2021 Appointment Radiology 05/11/2021 Office Visit Gastroenterology Sergei Sanchez P, DO [address] [facility] [place] [address] 06/07/2021 Nutrition Services Gastroenterology Melissa Omalley RDN [address] [place] [address] [phone] 07/06/2021 Office Visit Hematology Oncology Tono Sanchez MD 200 [place] [address] [phone] 07/27/2021 Office Visit Gastroenterology Lyssa Stout CRNP [address] [place] [address] [phone] 09/09/2021 Imaging Radiology Health Maintenance Due Date [...] this encounter Implants Implanted Type Area Sales Demonstrator Device Identifier Shelf Expiration Date Model / Serial / Lot Microtech Sure Clip Implanted:Qty: 2 on 06/03/2020 by Janis Hatch DO at OR [facility] Clip N/A: Colon 04/21/2022 [facility]-F-26-2 35-C-R / / [id number] documented as of this encounter Visit Diagnoses Diagnosis Acute on chronic heart failure with preserved ejection fraction (HFpEF) (HCC)- Primary documented in this encounter Advance Directives Documents on File Type Date Recorded Patient Script Artist 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 Agents on File Name Relationship Healthcare Agent [facility] Communication Syed Bustos Spouse Emergency Contact
--- OUTSIDE RECORDS SUMMARY | 2023-05-10 20:59 | External Medical Summary | Summary of Care ---
Author Name Unknown Organization [place] [address] Care Team Providers Care Office Machine Installer Name Role Phone Alexandra Caceres Primary Care Provider [phone] Reason for Visit * Reason Onset Date Comments Hospital Follow-Up 03/12/2021 hem/onc disch arge Encounter Details Date Type Department Care Team Description 03/12/2021 Telephone Hematology/Oncology Treatment, [address] [address] Chelle Sanchez MD [address] [place] [address] [phone] Hospital Follow-Up (hem/onc discharge) Allergies Active Allergy [...] 120 Vial 11 10/02/2019 Active nystatin (NYSTOP) 534953 UNIT/GM powder Apply topically to affected area [...] 60 Each 3 07/27/2020 Active Dexcom G6 Oracle Fusion Consultant Device Use as directed. To test [...] once daily 100 Strip 3 10/29/2020 Active [place] [employer] (GLCF)Touch Delica Plus Nndmhw96N TESTING once daily 100 Each 3 10/29/2020 [...] Active Additional Information Patient taking differently: 2 [place] Nasal DAILY PRN, Congestion, Informant: Pharmacy, Reported [...] pain 01/24/2012 01/17/2017 Genetic Sleep Disorder Research Other*[id number] 05/13/2011 04/07/2016 Obstructive sleep apnea 01/18/2011 12/27/19 [...] encounter Miscellaneous Notes * Addendum Note - Chelle Sanchez MD - 03/12/2021 3:04 PM EDT Addended by: CHELLE SANCHEZ on: 03/12/2021 03:04 PM Modules accepted: Orders * Telephone Encounter - Chelle Sanchez MD - 03/12/2021 3:04 PM EDT She received 1 dose of IV iron in the form Venofer at 200 mg on 03/08/2021 when she was admitted at [facility]. CT scan of the abdomen and [...] 03/12/2021 2:11 PM EDT Patient admitted at [facility] 03/07/21- 03/11/21 for chest pain. [...] Family Medicine Vanita Dunn MD [address] [place] [address] 03/16/2021 Pharmacy Pharmacy [facility] [address] [place] [address] [phone] 04/05/2021 Office Visit Family Medicine Brianne Pal PA-C [address] [place] [address] [phone] 04/09/2021 Immunization/Injection Hematology Oncolog y Nurse, Med 4 [address] [place] [address] [phone] 04/16/2021 Office Visit Podiatry Prakash Martino, SIRENA [address] [place] [address] 04/29/2021 Appointment Radiology 05/11/2021 Office Visit Gastroenterology Sergei Sanchez P, DO [address] [place], [place] [address] 06/07/2021 Nutrition Services Gastroenterology Melissa Omalley, SAMANTHA [address] [place] [address] [phone] 07/06/2021 Office Visit Hematology Oncology Chelle Sanchez MD [address] [place] [address] [phone] 07/27/2021 Office Visit Gastroenterology Lyssa Stout CRNP [address] [place] [address] [phone] 09/09/2021 Imaging Radiology Health Maintenance Due Date [...] of this encounter Implants Implanted Type Area Cotton Ginner Helper Device Identifier Shelf Expiration Date Model / Serial / Lot Microtech Sure Clip Implanted:Qty: 2 on 06/03/2020 by Janis Hatch DO at OR [facility] Clip N/A: Colon 04/21/2022 [facility]-F-26-2 35-C-R / / [id number] documented as of this encounter Visit Diagnoses Diagnosis Iron deficiency anemia due to chronic blood loss- Primary Iron deficiency anemia secondary to blood loss (chronic) documented in this encounter Advance Directives Documents on File Type Date Recorded Patient Fuel Management Handler 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
--- OUTSIDE RECORDS SUMMARY | 2023-05-10 21:00 | External Medical Summary ---
Author Name Unknown Address Unknown Organization [id number]:LABORATORY [facility] - [address] [facility] [facility] [address] [facility] [address] Laboratory Report Ordering Provider Test Date Status WILL,BORREGO 03/11/2021 04:33:00 Final Observation Date Value Abnormality Reference (Units ) Status BUN 03/11/2021 04:33:00 7 6-20 (mg/dL) Final Creatinine 03/11/2021 04:33:00 0.6 0.5-1.0 (mg/dL) Final Glomerular filtration rate/1.73 sq M.predicted [Volume Rate/Area] in Serum, Plasma or Blood by Creatinine-based formula (CKD-EPI) 03/11/2021 04:33:00 >90.0 >=60.0 (mL/min) Final Performing Location LABORATORY [facility] - [address] [facility] [address]
--- OUTSIDE RECORDS SUMMARY | 2023-05-10 21:00 | External Medical Summary ---
Author Name Unknown Address Unknown Organization [id number]:LABORATORY [facility] [place] - [address] [facility] [place] [address] Laboratory Report Ordering Provider Test Date Status ISATU WHITE 03/09/2021 04:40:00 Final Observation Date Value Abnormality Reference (Units ) Status SYNC LEUKOCYTES IN BLOOD BY AUTOMATED COUNT 03/09/2021 04:40:00 2.63 Below low normal 4.00-10.80 (K/uL) Final Segs 03/09/2021 04:40:00 58.1 40.0-75.0 (%) Final Lymphs % 03/09/2021 04:40:00 24.0 18.0-42.0 (%) Final Monos 03/09/2021 04:40:00 11.0 1.0-11.0 (%) Final Eosinophils 03/09/2021 04:40:00 5.7 0.0-6.0 (%) Final Basos 03/09/2021 04:40:00 0.8 0.0-2.0 (%) Final Immature Granulocyte, Percent 03/09/2021 04:40:00 0.4 0.0-2.0 (%) Final Absolute Segs 03/09/2021 04:40:00 1.53 Below low normal 1.80-7.70 (K/uL) Final Lymphs, absolute 03/09/2021 04:40:00 0.63 Below low normal 1.00-4.80 (K/ul) Final Monos, Abs 03/09/2021 04:40:00 0.29 0.00-1.10 (K/uL) Final Eos, Abs 03/09/2021 04:40:00 0.15 0.00-0.70 (K/uL) Final Basos, Abs 03/09/2021 04:40:00 0.02 0.00-0.20 (K/uL) Final Immature Granulocytes, Number 03/09/2021 04:40:00 0.01 0.00-0.20 (K/uL) Final Performing Location LABORATORY [facility] - [facility] [address] [facility] [address]
--- OUTSIDE RECORDS SUMMARY | 2023-05-10 21:00 | External Medical Summary ---
Author Name Unknown Address Unknown Organization K01:LABORATORY [facility] - [address] [place] [address] Laboratory Report Ordering Provider Test Date Status ISATU WHITE 03/09/2021 04:40:00 Final Observation Date Value Abnormality Reference (Units ) Status Haptoglobin 03/09/2021 04:40:00 61 30-200 ( mg/dL) Final Performing Location [facility]ORY [facility] - [address] [facility] [address]
--- OUTSIDE RECORDS SUMMARY | 2023-05-10 21:00 | External Medical Summary ---
Author Name Unknown Address Unknown Organization K01:LAB[facility]ATORY [facility] - [address] [place] [address] Laboratory Report Ordering Provider Test Date Status WILL,BORREGO 03/10/2021 14:35:00 Final Observation Date Value Abnormality Reference (Units ) Status WBC, Total 03/10/2021 14:35:00 3.03 Below low normal 4.00-10.80 (K/uL) Final RBC 03/10/2021 14:35:00 2.38 Below low normal 3.85-5.15 (M/uL) Final Hemoglobin 03/10/2021 14:35:00 7.6 Below low normal 12.0-15.3 (g/dL) Final HCT 03/10/2021 14:35:00 25.1 Below low normal 36.0-45.2 (%) Final MCV 03/10/2021 14:35:00 105.5 Above high normal 81.5-97.5 (fL) Final MCH 03/10/2021 14:35:00 31.9 27.0-34.0 (pg) Final MCHC 03/10/2021 14:35:00 30.3 Below low normal 32.0-36.0 (g/dL) Final RDW 03/10/2021 14:35:00 20.2 Above high normal 11.5-15.5 (%) Final MPV 03/10/2021 14:35:00 13.7 Above high normal 6.6-11.1 (fL) Final Nucleated erythrocytes/100 leukocytes [Ratio] in Blood by Automated count 03/10/2021 14:35:00 1 Above high normal <=0 (/100 WBCs) Final Platelets 03/10/2021 14:35:00 82 Below low normal 140-400 (K/uL) Final Performing Location LABOR[facility]ORY [facility] - [address] [place] [address]
--- OUTSIDE RECORDS SUMMARY | 2023-05-10 21:00 | External Medical Summary ---
Author Name Unknown Address Unknown Organization : Laboratory Report Ordering Provider Test Date Status ISATU WHITE 03/09/2021 08:54:06 Final Observation Date Value Abnormality Reference (Units ) Status Glucose Point of Care 03/09/2021 08:54:06 167 Above high normal 70-120 (mg/dL) Final Performing Location
--- OUTSIDE RECORDS SUMMARY | 2023-05-10 21:00 | External Medical Summary ---
Author Name Unknown Address Unknown Organization K01:LABORATORY [facility] - [address] [place] [address] Laboratory Report Ordering Provider Test Date Status ISATU WHITE 03/09/2021 04:40:00 Final Observation Date Value Abnormality Reference (Units ) Status LDH 03/09/2021 04:40:00 385 Above high normal <= 250 (U/L) Final Performing Location [facility]ATORY [facility] - [address] [facility] [address]
--- OUTSIDE RECORDS SUMMARY | 2023-05-10 21:00 | External Medical Summary ---
Author Name Unknown Address Unknown Organization K01:[facility] [place] [address] [place] [address] Laboratory Report Ordering Provider Test Date Status MARIE DEMARCODARRIAN 03/09/2021 04:40:00 Final Observation Date Value Abnormality Reference (Units ) Status BUN 03/09/2021 04:40:00 11 6-20 (mg/dL) Final Creatinine 03/09/2021 04:40:00 0.6 0.5-1.0 (mg/dL) Final Glomerular filtration rate/1.73 sq M.predicted [Volume Rate/Area] in Serum, Plasma or Blood by Creatinine-based formula (CKD-EPI) 03/09/2021 04:40:00 >90.0 >=60.0 (mL/min) Final Performing Location [facility] [place] [address] [place] [address]
--- OUTSIDE RECORDS SUMMARY | 2023-05-10 21:00 | External Medical Summary ---
Author Name Unknown Address Unknown Organization [id number]:[facility] [place] [address] [place] [address] Laboratory Report Ordering Provider Test Date Status KAVITHAJODY 03/09/2021 07:10:00 Final Observation Date Value Abnormality Reference (Units ) Status ABO 03/09/2021 07:10:00 A Final RH 03/09/2021 07:10:00 Positive Final RED BLOOD CELL ANTIBODY SCREEN 03/09/2021 07:10:00 Negative Final SPECIMEN EXPIRATION DATE 03/09/2021 07:10:00 03/12/2021 23:59 Final Performing Location [facility] [place] [address] [place] [address]
--- OUTSIDE RECORDS SUMMARY | 2023-05-10 21:00 | External Medical Summary ---
Author Name Unknown Address Unknown Organization [id number]:[facility]ORY [facility] [place] [facility] [place] [address] [place] [address] Laboratory Report Ordering Provider Test Date Status JODY PLUMMER 03/09/2021 07:10:00 Final Observation Date Value Abnormality Reference (Units ) Status ABO 03/09/2021 07:10:00 A Final RH 03/09/2021 07:10:00 Positive Final Performing Location [facility] [place] [facility] - [address] [place] [address]
--- OUTSIDE RECORDS SUMMARY | 2023-05-10 21:00 | External Medical Summary ---
Author Name Unknown Address Unknown Organization K2I:LABORATORY [address] [place] [address] Laboratory Report Ordering Provider Test Date Status ISATU WHITE 03/09/2021 04:40:00 Final Observation Date Value Abnormality Reference (Units) Status Pathologist review of Blood tests 03/09/2021 04:40:00 Pancytopenia Final Pathologist review of Blood tests 03/09/2021 04:40:00 Final Pathologist review of Blood tests 03/09/2021 04:40:00 Microscopic findings: Final Pathologist review of Blood tests 03/09/2021 04:40:00 RBC: The peripheral blood smear shows normochromic and macrocytic Final Pathologist review of Blood tests 03/09/2021 04:40:00 erythrocytes. There are occasional hypochromic erythrocytes and Final Pathologist review of Blood tests 03/09/2021 04:40:00 elliptocytes; no significant numbers of schistocytes are noted. A few of Final Pathologist review of Blood tests 03/09/2021 04:40:00 polychromatic red cells are detectable. Final Pathologist review of Blood tests 03/09/2021 04:40:00 WBC: The white cell count appears reduced with lymphopenia. Occasional Final Pathologist review of Blood tests 03/09/2021 04:40:00 lymphocytes show reactive changes. There are no blasts. Final Pathologist review of Blood tests 03/09/2021 04:40:00 Platelet: The platelet count appears decreased with occasional large Final Pathologist review of Blood tests 03/09/2021 04:40:00 platelets. Final Pathologist review of Blood tests 03/09/2021 04:40:00 Final Pathologist review of Blood tests 03/09/2021 04:40:00 Note: Recommend clinical correlation and follow up. Final CLINICAL INDICATION FOR SMEAR 03/09/2021 04:40:00 Workup of Anemia Final Performing Location LABORATORY [address] [place] [address]
--- OUTSIDE RECORDS SUMMARY | 2023-05-10 21:00 | External Medical Summary ---
Author Name Unknown Address Unknown Organization : Laboratory Report Ordering Provider Test Date Status ELMO ISAACS 03/11/2021 12:08:30 Final Observation Date Value Abnormality Reference (Units ) Status Glucose Point of Care 03/11/2021 12:08:30 266 Above high normal 70-120 (mg/dL) Final Performing Location
--- OUTSIDE RECORDS SUMMARY | 2023-05-10 21:00 | External Medical Summary ---
Author Name Unknown Address Unknown Organization [id number]:[facility] [place] [address] [place] [address] Laboratory Report Ordering Provider Test Date Status ISATU WHITE 03/09/2021 14:53:00 Final Observation Date Value Abnormality Reference (Units ) Status WBC, Total 03/09/2021 14:53:00 3.59 Below low normal 4.00-10.80 (K/uL) Final RBC 03/09/2021 14:53:00 2.41 Below low normal 3.85-5.15 (M/uL) Final Hemoglobin 03/09/2021 14:53:00 7.5 Below low normal 12.0-15.3 (g/dL) Final HCT 03/09/2021 14:53:00 24.9 Below low normal 36.0-45.2 (%) Final MCV 03/09/2021 14:53:00 103.3 Above high normal 81.5-97.5 (fL) Final MCH 03/09/2021 14:53:00 31.1 27.0-34.0 (pg) Final MCHC 03/09/2021 14:53:00 30.1 Below low normal 32.0-36.0 (g/dL) Final RDW 03/09/2021 14:53:00 19.8 Above high normal 11.5-15.5 (%) Final MPV 03/09/2021 14:53:00 13.4 Above high normal 6.6-11.1 (fL) Final Nucleated erythrocytes/100 leukocytes [Ratio] in Blood by Automated count 03/09/2021 14:53:00 1 Above high normal <=0 (/100 WBCs) Final Platelets 03/09/2021 14:53:00 84 Below low normal 140-400 (K/uL) Final Performing Location [facility] [place] [address] [place] [address]
--- OUTSIDE RECORDS SUMMARY | 2023-05-10 21:00 | External Medical Summary ---
Author Name Unknown Address Unknown Organization K01:LAB[facility]ATORY [facility] [place] - [address] [facility] [address] Laboratory Report Ordering Provider Test Date Status WILL,BORREGO 03/10/2021 14:35:00 Final Observation Date Value Abnormality Reference (Units ) Status BUN 03/10/2021 14:35:00 8 6-20 (mg/dL) Final Creatinine 03/10/2021 14:35:00 0.6 0.5-1.0 (mg/dL) Final Glomerular filtration rate/1.73 sq M.predicted [Volume Rate/Area] in Serum, Plasma or Blood by Creatinine-based formula (CKD-EPI) 03/10/2021 14:35:00 >90.0 >=60.0 (mL/min) Final Performing Location LABORATORY [facility] [place] - [address] [facility] [address]
--- OUTSIDE RECORDS SUMMARY | 2023-05-10 21:00 | External Medical Summary ---
Author Name Unknown Address Unknown Organization : Laboratory Report Ordering Provider Test Date Status ELMO ISAACS 03/10/2021 21:27:28 Final Observation Date Value Abnormality Reference (Units ) Status Glucose Point of Care 03/10/2021 21:27:28 258 Above high normal 70-120 (mg/dL) Final Performing Location
--- OUTSIDE RECORDS SUMMARY | 2023-05-10 21:00 | External Medical Summary ---
Author Name Unknown Address Unknown Organization [id number]:[facility]ORY [facility] [place] [address] [place] [address] Laboratory Report Ordering Provider Test Date Status WILL,BORREGO 03/11/2021 04:32:00 Final Observation Date Value Abnormality Reference (Units ) Status WBC, Total 03/11/2021 04:32:00 3.30 Below low normal 4.00-10.80 (K/uL) Final RBC 03/11/2021 04:32:00 2.49 Below low normal 3.85-5.15 (M/uL) Final Hemoglobin 03/11/2021 04:32:00 7.9 Below low normal 12.0-15.3 (g/dL) Final HCT 03/11/2021 04:32:00 26.2 Below low normal 36.0-45.2 (%) Final MCV 03/11/2021 04:32:00 105.2 Above high normal 81.5-97.5 (fL) Final MCH 03/11/2021 04:32:00 31.7 27.0-34.0 (pg) Final MCHC 03/11/2021 04:32:00 30.2 Below low normal 32.0-36.0 (g/dL) Final RDW 03/11/2021 04:32:00 19.8 Above high normal 11.5-15.5 (%) Final MPV 03/11/2021 04:32:00 13.5 Above high normal 6.6-11.1 (fL) Final Nucleated erythrocytes/100 leukocytes [Ratio] in Blood by Automated count 03/11/2021 04:32:00 1 Above high normal <=0 (/100 WBCs) Final Platelets 03/11/2021 04:32:00 88 Below low normal 140-400 (K/uL) Final Performing Location [facility] [place] [address] [place] [address]
--- OUTSIDE RECORDS SUMMARY | 2023-05-10 21:00 | External Medical Summary ---
Author Name Unknown Address Unknown Organization : Laboratory Report Ordering Provider Test Date Status ELMO ISAACS 03/11/2021 08:06:40 Final Observation Date Value Abnormality Reference (Units ) Status Glucose Point of Care 03/11/2021 08:06:40 167 Above high normal 70-120 (mg/dL) Final Performing Location
--- OUTSIDE RECORDS SUMMARY | 2023-05-10 21:01 | External Medical Summary ---
Author Name Unknown Address Unknown Organization K01:[facility]ORY [facility] [place] [address] [place] [address] Laboratory Report Ordering Provider Test Date Status GERRI DEMARCO 03/09/2021 04:40:00 Final Observation Date Value Abnormality Reference (Units ) Status WBC, Total 03/09/2021 04:40:00 2.63 Below low normal 4.00-10.80 (K/uL) Final RBC 03/09/2021 04:40:00 2.05 Below low normal 3.85-5.15 (M/uL) Final Hemoglobin 03/09/2021 04:40:00 6.4 Below lower panic limits 12.0-15.3 (g/dL) Final HCT 03/09/2021 04:40:00 21.1 Below low normal 36.0-45.2 (%) Final MCV 03/09/2021 04:40:00 102.9 Above high normal 81.5-97.5 (fL) Final MCH 03/09/2021 04:40:00 31.2 27.0-34.0 (pg) Final MCHC 03/09/2021 04:40:00 30.3 Below low normal 32.0-36.0 (g/dL) Final RDW 03/09/2021 04:40:00 18.6 Above high normal 11.5-15.5 (%) Final MPV 03/09/2021 04:40:00 13.0 Above high normal 6.6-11.1 (fL) Final Nucleated erythrocytes/100 leukocytes [Ratio] in Blood by Automated count 03/09/2021 04:40:00 0 <=0 (/100 WBCs) Final Platelets 03/09/2021 04:40:00 79 Below low normal 140-400 (K/uL) Final Performing Location LABORATORY [facility] [place] - [address] [place] [address]
--- OUTSIDE RECORDS SUMMARY | 2023-05-10 21:01 | External Medical Summary ---
Author Name Unknown Address Unknown Organization : Laboratory Report Ordering Provider Test Date Status ISATU WHITE 03/08/2021 23:07:35 Final Observation Date Value Abnormality Reference (Units ) Status Glucose Point of Care 03/08/2021 23:07:35 230 Above high normal 70-120 (mg/dL) Final Performing Location
--- OUTSIDE RECORDS SUMMARY | 2023-05-10 21:01 | External Medical Summary ---
Author Name Unknown Address Unknown Organization K01:[facility] [place] [facility] [address] [facility] [place] [address] Laboratory Report Ordering Provider Test Date Status ISATU WHITE 03/09/2021 04:40:00 Final Observation Date Value Abnormality Reference (Units ) Status Albumin 03/09/2021 04:40:00 2.5 Below low normal 3.8-5.0 (g/dL) Final AST (Aspartate aminotransferase) 03/09/2021 04:40:00 74 Above high normal 10-35 (U/L) Final Performing Location [facility] [place] [address] [place] [address]
--- OUTSIDE RECORDS SUMMARY | 2023-05-10 21:01 | External Medical Summary | Summary of Care ---
Author Name Unknown Organization [facility] Address [facility] [place] [address] Care Team Providers Care Coremaker Bench Name Role Phone Alexandra Caceres Primary Care Provider [phone] Reason for Visit * Reason Comments Dosage Adjustment Via Phone (anticoag Cl inic) Diabetes Follow-Up Encounter Details Date Type Department Care Team Description 03/08/2021 Office Visit Pharmacy, [place] [address] [place] [address] [facility] [address] [place] [address] [phone] Type 2 diabetes mellitus with hemoglobin A1c goal of less than 7.0% ([facility])* Allergies Active Allergy Reactions Severity Noted Date Comments Adhesive Tape Itching 04/29/2020 Penicillins Rash 02/12/2008 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 To test [...] 10/29/2020 Suspended Additional Information OneTouch Delica Plus Cptwum45F TESTING once daily 100 Each 3 10/29/2020 [...] MOUTH AT BEDTIME 30 Tab 2 11/30/2020 Suspended Additional Information traZODone HCl 50 MG Oral Tablet (Desyrel)Indicatio ns:Sleep disturbances TAKE 1 TABLET BY MOUTH AT BEDTIME 90 Tab 2 11/30/2020 Suspended Additional Information BD Pen Needle Mini U/F 31G X 5 MM (Insulin Pen Needle)Indications :Type 2 diabetes mellitus with hemoglobin A1c goal of less than 7.0% ([facility]) Use to inject insulin four times daily; E11.42 400 Each 3 12/05/2020 Suspended Additional Information Fluticasone Propionate 50 MCG/ACT Nasal Suspension (Flonase)Indicatio ns:Sinus congestion USE 2 SPRAYS IN EACH NOSTRIL ONCE DAILY as directed 16 g 5 12/23/2020 Suspended Additional Information Patient taking differently: 2 Gering Nasal DAILY PRN, Congestion, Informant: Pharmacy, Reported [...] 500 mg by mouth daily. 0 Suspended rifAXIMin 550 MG Oral Tablet (Xifaxan) Take 1 Tab by mouth 2 times a day for 30 days. 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 Will follow-up next week Indira Hudson [facility], Pharm D, BCACP Clinical Pharmacist 03/08/21 3:20 PM documented in this encounter Plan of Treatment Upcoming Encounters Date Type Specialty Care Team Description 03/08/2021 Laboratory Laboratory [facility] [address], [place] [id number] 03/10/2021 Office Visit Cardiology Quyen Canseco CRNP [address] [facility] [place] [address] [phone] 03/16/2021 Office Visit Family Medicine Vanita Dunn MD [address] [place] [address] 03/16/2021 Pharmacy Pharmacy [facility] [address], [place] [id number] 04/05/2021 Office Visit Family Medicine Brianne Pal PARominaC [address], [place] [id number] 04/09/2021 Immunization/Injection Hematology Oncolog y Nurse, Med [address] [facility], [place] [address] [phone] 04/16/2021 Office Visit Podiatry Prakash Martino, SIRE[place] [address] [facility] [place] [address] 04/29/2021 Appointment Radiology 06/07/2021 Nutrition Services Gastroenterology Melissa Omalley RDN [address] [place] [address] [place] [id number] 07/06/2021 Office Visit Hematology Oncology Tono Sanchez MD [address] [place] [place] [address] [phone] 07/27/2021 Office Visit Gastroenterology Lyssa Stout CRNP [address] [facility] [place] [address] [phone] 09/09/2021 Imaging Radiology Health Maintenance Due Date Last Done Comments DIABETES-EYE EXAM 06/12/2019 06/12/2018, , 06/12/2018, Additional history exists Dexa Scan 2020 Zoster Vaccines (3 of 3) 06/23/2020 04/28/2020, 11/11 DIABETES-FOOT EXAM 11/06/2020 11/06/2019, 0 01/09/2019, 12/26/2017, Additional history exists COVID-19 Vaccine (2 - Moderna 2-dose series) 12/21/2020 11/23/2020 Yearly B-12 07/14/2021 07/14/2020, 04/11, 02/21/2020, Additional [...] Vaccines (3 - Td) 05/01/2027 05/01/2017, 05/26/2008 Influenza Vaccine (FLU shot) Completed , 06/05/2019, 05/16/2018, Additional history exists MENINGOCOCCAL (MENACTRA/MENVEO) Aged Out No longer eligible based on patient's age to complete this topic documented as of this encounter Implants Implanted Type Area Office Services Specialist Device Identifier Shelf Expiration Date Model / Serial / Lot [employer] Sure Clip Implanted:Qty: 2 on 06/03/2020 by Janis Hatch DO at OR [facility] Clip N/A: Colon 04/21/2022 ROCC-F-26-2 35-C-R / / [id number] documented as of this encounter Visit Diagnoses Diagnosis Type 2 diabetes mellitus with hemoglobin A1c goal of less than 7.0% (HCC)- Primary documented in this encounter Advance Directives Documents on File Type Date Recorded Patient Leather Heel Breaster 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 Inactivated Comments Full Code 03/08/2021 3:24 AM This order reflects the patients wishes and [...] Name Relationship Healthcare Agent [facility] [place] Campushi p Communication Syed Bustos Spouse Emergency Contact
--- OUTSIDE RECORDS SUMMARY | 2023-05-10 21:01 | External Medical Summary ---
Author Name Unknown Address Unknown Organization : Laboratory Report Ordering Provider Test Date Status ISATU WHITE 03/08/2021 16:20:14 Final Observation Date Value Abnormality Reference (Units ) Status Glucose Point of Care 03/08/2021 16:20:14 313 Above high normal 70-120 (mg/dL) Final Performing Location
--- OUTSIDE RECORDS SUMMARY | 2023-05-10 21:01 | External Medical Summary ---
Author Name Unknown Address Unknown Organization : Laboratory Report Ordering Provider Test Date Status ISATU WHITE 03/08/2021 12:30:53 Final Observation Date Value Abnormality Reference (Units ) Status Glucose Point of Care 03/08/2021 12:30:53 233 Above high normal 70-120 (mg/dL) Final Performing Location
--- OUTSIDE RECORDS SUMMARY | 2023-05-10 21:01 | External Medical Summary ---
Author Name Unknown Address Unknown Organization K01:LABORATORY [facility] - [address] [place] [address] Laboratory Report Ordering Provider Test Date Status GERRI DEMARCO 03/08/2021 03:57:01 Final Observation Date Value Abnormality Reference (Units ) Status SARS Coronavirus 2 03/08/2021 03:57:01 Negative N egative Final Performing Location LABORATORY [facility] - [address] [place] [address]
--- OUTSIDE RECORDS SUMMARY | 2023-05-10 21:01 | External Medical Summary ---
Author Name Unknown Address Unknown Organization K01:[place] [facility] [place] [address] [place] [address] [place] [address] Laboratory Report Ordering Provider Test Date Status ISATU WHITE 03/09/2021 04:40:00 Final Observation Date Value Abnormality Reference (Units ) Status Anisocytosis [Presence] in Blood by Light microscopy 03/09/2021 04:40:00 Slight Abnormal None Seen Final Performing Location [facility] [facility] [facility] [place] [address] [place] [address]
--- OUTSIDE RECORDS SUMMARY | 2023-05-10 21:01 | External Medical Summary ---
Author Name Unknown Address Unknown Organization K01:LABORATORY [facility] - [address] [place] [address] Laboratory Report Ordering Provider Test Date Status GERRI DEMARCO 03/08/2021 03:40:00 Final Observation Date Value Abnormality Reference (Units ) Status Iron 03/08/2021 03:40:00 39 33-151 (ug/dL) Final Iron-binding capacity 03/08/2021 03:40:00 287 250-425 (ug/dL) Final Transferrin Sat % 03/08/2021 03:40:00 14 Below low normal 15-55 (%) Final Performing Location LABORATORY [facility] - [address] [place] [address]
--- OUTSIDE RECORDS SUMMARY | 2023-05-10 21:01 | External Medical Summary ---
Author Name Unknown Address Unknown Organization : Laboratory Report Ordering Provider Test Date Status ISATU WHITE 03/08/2021 07:30:01 Final Observation Date Value Abnormality Reference (Units ) Status Glucose Point of Care 03/08/2021 07:30:01 202 Above high normal 70-120 (mg/dL) Final Performing Location
--- OUTSIDE RECORDS SUMMARY | 2023-05-10 21:01 | External Medical Summary ---
Author Name Unknown Address Unknown Organization K01:[facility] [place] [address] [place] [address] Laboratory Report Ordering Provider Test Date Status GERRI DEMARCO 03/08/2021 03:40:00 Final Observation Date Value Abnormality Reference (Units ) Status HbA1C 03/08/2021 03:40:00 8.5 Above high normal 4. 0-5.6 (%) Final Performing Location [facility] [place] [address] [facility] [address]
--- OUTSIDE RECORDS SUMMARY | 2023-05-10 21:02 | External Medical Summary ---
Author Name Unknown Address Unknown Organization K01:LABORATORY [facility] [place] [address] [place] [address] Laboratory Report Ordering Provider Test Date Status KASHMIR ISIDRO 03/07/2021 21:49:00 Final Observation Date Value Abnormality Reference (Units ) Status Lipase 03/07/2021 21:49:00 15 13-60 (U/L ) Final Performing Location LABORATORY [facility] - [address] [facility] [address]
--- OUTSIDE RECORDS SUMMARY | 2023-05-10 21:02 | External Medical Summary ---
Author Name Unknown Address Unknown Organization K01:LABORATORY [place] [address] [address] [facility] [address] Laboratory Report Ordering Provider Test Date Status KASHMIR ISIDRO 03/07/2021 21:49:00 Final Observation Date Value Abnormality Reference (Units ) Status Body temperature 03/07/2021 21:49:00 37.0 (C) Final pH of Venous blood 03/07/2021 21:49:00 7.470 Above high normal 7.320-7.430 (units) Final Carbon dioxide [Partial pressure] in Venous blood 03/07/2021 21:49:00 38.1 Below low normal 40.0-60.0 (mmHg) Final Oxygen [Partial pressure] in Venous blood 03/07/2021 21:49:00 71.9 Above high normal 25.0-50.0 (mmHg) Final Bicarbonate, Venous 03/07/2021 21:49:00 27.4 23.0-31.0 (mmol/L) Final Base excess, Capillary 03/07/2021 21:49:00 3.9 Above high normal -2.0-2.0 (mmol/L) Final Hemoglobin [Mass/volume] in Blood by Oximetry 03/07/2021 21:49:00 7.5 Below low normal 12.0-15.3 (g/dL) Final Oxyhemoglobin, Venous (FO2HB) 03/07/2021 21:49:00 92.3 Above high normal 40.0-85.0 (% total Hgb) Final Carboxyhemoglobin 03/07/2021 21:49:00 2.4 Above high normal <=1.5 (% total Hgb) Final Performing Location LABORAT[facility] [place] [facility] [address] [facility] [address]
--- OUTSIDE RECORDS SUMMARY | 2023-05-10 21:02 | External Medical Summary ---
Author Name Unknown Address Unknown Organization K01:[place]ORY [facility] [place] [facility] [address] [place] [address] Laboratory Report Ordering Provider Test Date Status SANNAKASHMIR 03/07/2021 21:49:00 Final Observation Date Value Abnormality Reference (Units ) Status WBC, Total 03/07/2021 21:49:00 3.85 Below low normal 4. 00-10.80 (K/uL) Final RBC 03/07/2021 21:49:00 2.30 Below low normal 3.8 5-5.15 (M/uL) Final Hemoglobin 03/07/2021 21:49:00 7.2 Below low normal 12 .0-15.3 (g/dL) Final HCT 03/07/2021 21:49:00 23.6 Below low normal 36. 0-45.2 (%) Final MCV 03/07/2021 21:49:00 102.6 Above high normal 81 .5-97.5 (fL) Final MCH 03/07/2021 21:49:00 31.3 27.0-34.0 (pg) Final MCHC 03/07/2021 21:49:00 30.5 Below low normal 32. 0-36.0 (g/dL) Final RDW 03/07/2021 21:49:00 18.7 Above high normal 11 .5-15.5 (%) Final MPV 03/07/2021 21:49:00 Final Performing Location LABORATORY [facility] [place] [address] [place] [address]
--- OUTSIDE RECORDS SUMMARY | 2023-05-10 21:02 | External Medical Summary ---
Author Name Unknown Address Unknown Organization K01:[facility]ORY [facility] [place] [address] [place] [address] Laboratory Report Ordering Provider Test Date Status KASHMIR ISIDRO 03/07/2021 21:49:00 Final Observation Date Value Abnormality Reference (Units ) Status BUN 03/07/2021 21:49:00 11 6-20 (mg/dL) Final Creatinine 03/07/2021 21:49:00 0.7 0.5-1.0 (mg/dL) Final Glomerular filtration rate/1.73 sq M.predicted [Volume Rate/Area] in Serum, Plasma or Blood by Creatinine-based formula (CKD-EPI) 03/07/2021 21:49:00 >90.0 >=60.0 (mL/min) Final Performing Location LAB[facility] [place] [address] [facility] [address]
--- OUTSIDE RECORDS SUMMARY | 2023-05-10 21:02 | External Medical Summary | Summary of Care ---
Author Name Unknown Organization [place] [address] Care Team Providers Care Fire Hydrant Mechanic Name Role Phone Alexandra Caceres Primary Care Provider [phone] Reason for Visit * Reason Comments [facility]: Maintenance Encounter Details Date Type Department Care Team Description 03/04/2021 Home Visit Care Coordination [address] [place] [address] Kaylee Barakat, Community Health [employer] Agent [address] [place] [address] [phone] Allergies Active Allergy Reactions Severity Noted Date Comments Adhesive Tape Itching 04/29/2020 Penicillins Rash 02/12/2008 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 To test blood [...] Strip 3 10/29/2020 Active OneTouch Delica Plus [id number] TESTING once daily 100 Each 3 10/29/2020 [...] A1c goal of less than 7.0% ([facility]) Use to inject insulin four times daily; E11.42 400 Each 3 12/05/2020 Active Fluticasone Propionate 50 MCG/ACT Nasal Suspension (Flonase)Indication s:Sinus congestion USE 2 SPRAYS IN EACH NOSTRIL ONCE DAILY as directed 16 g 5 12/23/2020 Active Additional Information Patient taking differently: 2 [place] Nasal DAILY PRN, Congestion, Informant: Pharmacy, Reported [...] 500 mg by mouth daily. 0 Active rifAXIMin 550 MG Oral Tablet (Xifaxan) Take 1 Tab by mouth 2 times a day for 30 days. 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 05/13/2011 04/07/2016 Obstructive sleep apnea 01/18/2011 12/27/19 [...] as of this encounter (statuses as of 03/05/2021) Immunizations Name Administration Dates Next Due COVID-19 [...] Reading Time Taken Comments Blood Pressure 122/66 03/04/2021 12:06 PM EDT Pulse 77 03/04/2021 12:06 PM EDT Temperature 36.7 C (98 F) 03/04/2021 12:06 PM EDT Respiratory Rate 18 03/04/2021 12:06 PM EDT Oxygen Saturation 93% 03/04/2021 12:06 PM EDT Inhaled Oxygen Concentration - - Weight - - Height - - Body Mass Index - - documented in this encounter Functional Status Functional Status Response Date of Assess ment Are you deaf or do you have serious difficulty h earing? No 02/18/2021 Are you blind or do you have serious difficulty seeing, even when wearing glasses? No 02/18/2021 Do you have serious difficul ty walking or climbing stairs? 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 02/18/2021 Do you have difficulty dress ing or bathing? 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 02/18/2021 Because of a physical, menta l, or emotional condition, do you have difficulty doing errands alone such as visiting a doctor s office or shopping? (15 years old or older) Yes 02/19/20 21 Cognitive Status Response Date of Assessm ent Because of a physical, menta l, or emotional condition, do you have serious difficulty concentrating, remembering, or making decisions? (5 years old or older No 02/18/2021 documented as of this encounter Progress Notes * Kaylee Barakat, Community Health [employer] Agent - 03/04/2021 11:37 AM EDT h bed cadnace moter chair cpap o2 at night Community Health State [employer] Agent Visit Date: 03/04/2021 Time: 12:07 PM Name: Shaina Bustos : 1955 Referral Source: data science and iot manager Source of Information: Patient Spoken language: Brazilian Patient can read in Brazilian: Yes. Rough Rounder Machine needed: No. COVID-19 screening completed: Yes Vitals: Vital signs completed: Yes, vital signs within normal range. BP 122/66 | Pulse 77 | Temp 36.7 C (98 F) | Resp 18 | SpO2 93% Condition Changes: Changes in health or social status since last visit: Patient stated NO Patient has medication packaged from pharmacy She lives with her in a house owned by and his sister She has limited access to the house. she is in a small room with a hospital bed tv and chair. thereis a Door to the front porch and another door that goes in to the rest of the home this door has belonging in front of it . stated he has to walk outside and in the back door of the home to get to the kitchen and bathroom but there are plans of remodeling to give patient access to the bathroom . Patient has a hospital bed ,candace lift and a power chair and a wheelchair van Patient and stated they have every thing they need at this time and have no concerns Patient and where provided with education materials on low salt diet and salazar failer Patient is using a dex com Did not provid me with readings stated everything is good The patient has new concerns since last visit: no Medications: Medication review completed? Yes, no gaps identified Does the patient have barriers to medication adherence? No. Patient reports difficulty paying for medications or might in the future: No. Telehealth: This is a telehealth visit: No. Symptoms Surveys and Evaluations: MAHC10 completed this visit: Yes. Score is greater than 4? Yes, notified Provider/Software Security Architect Last flowsheet values for MAHC10: Age 65+: 1 (03/05/2021 7:00 AM) Diagnosis (3 or more co-existing): 1 (03/05/2021 7:00 AM) Prior history of falls within 3 months: 0 (03/05/2021 7:00 AM) Incontinence: 1 (03/05/2021 7:00 AM) Visual impairment: 0 (03/05/2021 7:00 AM) Impaired functional mobility: 1 (03/05/2021 7:00 AM) Environmental hazards: 1 (03/05/2021 7:00 AM) Poly Pharmacy (4 or more prescriptions - any type): 1 (03/05/2021 7:00 AM) Pain affecting level of function: 0 (03/05/2021 7:00 AM) Cognitive impairment: 0 (03/05/2021 7:00 AM) Score - a score of 4 or more is considered at risk for fallin (03/05/2021 7:00 AM) Home Safety Overall assessment: o The patient has concerns related to housing: No Exterior to the home: o Able to enter and exit the home safely Yes - The steps are even and in good repair: N/A - A wheelchair ramp to access the home is needed: Yes o Snow/ice removal assistance available: Yes o Sidewalks are in good repair: N/A o Adequate lighting: No o Railings are on outdoor stairs: N/A Interior of the home: o If durable medical equipment is used, halls and doorways easy to navigate: No o There are trip hazards in the home: Yes - Transition ramps available: N/A o There are working smoke detectors/CO2 detectors: Yes o There are signs of rodent/insect infestation: No o The house is heated by: oil - The heat system works (adequately heats the entire house): Yes o Able to open doors without difficulty: No o The doorways have levered knobs: No o The entry and exit doorways close correctly and lock: Yes o Lighting is adequate: No o Air quality concern that affects a health condition - Needs air conditioner or Air purifier: No o Secure railing in stairways in the home: N/A Bathroom: o Grab bars are needed: N/A o The patient reports needing help getting on and off the toilet: N/A o Needs help bathing: Yes - Has a walk in shower: No Bedroom: o There is a medical alert or phone near the bed: N/A o The walkway between the bedroom and bathroom is well lit: N/A Kitchen/Bathroom o Able to turn water on and off: Yes - (Regular knobs or levered knobs) N/A Plan: Notified Provider/Software Security Architect of Other: Medication and safty MACH=6 Follow Up: Patient encouraged to call the intake phone number for all urgent but not emergent issues. Scheduled to follow up with patient as needed . Kaylee Barakat [facility] Health State [employer] Agent 03/04/2021 2:07 PM Electronically signed by Kaylee Barakat [facility] Health State Farm Agent at 03/05/2021 8:16 AM EDT documented in this encounter Plan of Treatment Upcoming Encounters Date Type Specialty Care Team Description 03/08/2021 Office Visit Pharmacy [facility] [address], [place] [id number] 03/08/2021 Laboratory Laboratory [facility] [address], [place] [id number] 03/10/2021 Office Visit Cardiology [facility]seco [facility] [address] [facility] [address] [phone] 03/16/2021 Office Visit Family Medicine Vanita Dunn MD [address], [place] [id number] 04/05/2021 Office Visit Family Medicine Brianne Pal PARominaC [address] [place] [address] [phone] 04/09/2021 Immunization/Injection Hematology Oncolog y Nurse, Med [address] [place] [address] [phone] 04/16/2021 Office Visit Podiatry Prakash Martino, SIRENA [address] [place] [address] 04/29/2021 Appointment Radiology 06/07/2021 Nutrition Services Gastroenterology Melissa Omalley RDN [address] [place] [address] [phone] 07/06/2021 Office Visit Hematology Oncology Tono Sanchez MD [address] [place] [address] [phone] 07/27/2021 Office Visit Gastroenterology Lyssa Stout CRNP [address] [facility] [place] [address] [phone] 09/09/2021 Imaging Radiology Health Maintenance Due Date Last Done Comments DIABETES-EYE EXAM 06/12/2019 06/12/2018, , 06/12/2018, Additional history exists Dexa Scan 2020 Zoster Vaccines (3 of 3) 06/23/2020 04/28/2020, 11/11 DIABETES-FOOT EXAM 11/06/2020 11/06/2019, 0 01/09/2019, 12/26/2017, Additional history exists COVID-19 Vaccine (2 - Moderna 2-dose series) 12/21/2020 11/23/2020 DIABETES-HGBA1C EVERY 6 MONTHS 06/02/2021 11/30/2020, 07/06/2020, 05/26/2020, Additional history exists Yearly B-12 07/14/2021 07/14/2020, 04/11, 02/21/2020, Additional history exists BREAST CANCER SCREENING DISCUSSION YEARLY AGES 40-75 09/08/2021 09/08/2020, 09/02/2019, 04/04/2018, Additional history exists DIABETES-URINE MICROALBUMIN EVERY 12 MONTHS 02/04/2022 02/04/2021, 01/11/2019, 08/24/2018, Additional history exists Pneumococcal Vaccine: 65+ Years [...] of this encounter Implants Implanted Type Area Sexologist Device Identifier Shelf Expiration Date Model / Serial / Lot Microtech Sure Clip Implanted:Qty: 2 on 06/03/2020 by Janis Hatch DO at [facility] Clip N/A: Colon 04/21/2022 [facility]-F-26-2 35-C-R / / [id number] documented as of this encounter Advance Directives Documents on File Type Date Recorded Patient Manager Trainee 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 Date Activated Date Inactivated Comments Full Code 02/18/2021 1:08 AM 02/20/2021 8:55 [...] of Advance Directives occurred with: Not Discussed Full Code 08/05/2020 1:01 PM 08/05/2020 2:38 PM Thi s order reflects the patients wishes and were consensually agreed upon. Discussion of Advance Directives occurred with: Not Discussed Healthcare Agents on File Name Relationship [facility] Syed Bustos Spouse Emergency Contact "
--- OUTSIDE RECORDS SUMMARY | 2023-05-10 21:02 | External Medical Summary ---
Author Name Unknown Address Unknown Organization [id number]:[facility] [place] [address] [facility] [address] Laboratory Report Ordering Provider Test Date Status KASHMIR ISIDRO 03/07/2021 21:49:00 Final Observation Date Value Abnormality Reference (Units ) Status SYNC LEUKOCYTES IN BLOOD BY AUTOMATED COUNT 03/07/2021 21:49:00 3.85 Below low normal 4.00-10.80 (K/uL) Final Segs 03/07/2021 21:49:00 55.3 40.0-75.0 (%) Final Lymphs % 03/07/2021 21:49:00 24.9 18.0-42.0 (%) Final Monos 03/07/2021 21:49:00 11.2 Above high normal 1.0-11.0 (%) Final Eosinophils 03/07/2021 21:49:00 7.3 Above high normal 0.0-6.0 (%) Final Basos 03/07/2021 21:49:00 1.0 0.0-2.0 (%) Final Immature Granulocyte, Percent 03/07/2021 21:49:00 0.3 0.0-2.0 (%) Final Absolute Segs 03/07/2021 21:49:00 2.13 1.80-7.70 (K/uL) Final Lymphs, absolute 03/07/2021 21:49:00 0.96 Below low normal 1.00-4.80 (K/ul) Final Monos, Abs 03/07/2021 21:49:00 0.43 0.00-1.10 (K/uL) Final Eos, Abs 03/07/2021 21:49:00 0.28 0.00-0.70 (K/uL) Final Basos, Abs 03/07/2021 21:49:00 0.04 0.00-0.20 (K/uL) Final Immature Granulocytes, Number 03/07/2021 21:49:00 0.01 0.00-0.20 (K/uL) Final Performing Location [facility] [place] [facility] [address] [facility] [address]
--- OUTSIDE RECORDS SUMMARY | 2023-05-10 21:02 | External Medical Summary ---
Author Name Unknown Address Unknown Organization [id number]:[facility] [place] [address] [place] [address] Laboratory Report Ordering Provider Test Date Status KASHMIR ISIDRO 03/07/2021 21:49:00 Final Observation Date Value Abnormality Reference (Units ) Status Troponin T 03/07/2021 21:49:00 11 <=14 (ng/ L) Final Performing Location [facility] [place] [address] [place] [address]
--- OUTSIDE RECORDS SUMMARY | 2023-05-10 21:02 | External Medical Summary ---
Author Name Unknown Address Unknown Organization [id number][place] [place] [address] [facility] [place] [address] Laboratory Report Ordering Provider Test Date Status SANNACORNELLYORDAN 03/07/2021 21:41:45 Final Observation Date Value Abnormality Reference (Units ) Status Color of Urine by Auto 03/07/2021 21:41:45 Light Yellow Colorless, Light Yellow, Yellow, Dark Yellow Final Clarity, Urine 03/07/2021 21:41:45 Slightly Cloudy Abnormal Clear Final Glucose [Mass/volume] in Urine by Automated test strip 03/07/2021 21:41:45 Negative Negative (mg/dL) Final Bilirubin.total [Presence] in Urine by Automated test strip 03/07/2021 21:41:45 Negative Negative Final Ketones [Mass/volume] in Urine by Automated test strip 03/07/2021 21:41:45 Negative Negative (mg/dL) Final Specific gravity, Urine 03/07/2021 21:41:45 1.014 1.003-1.030 Final Hemoglobin [Presence] in Urine by Automated test strip 03/07/2021 21:41:45 Large Abnormal Negative Final pH, Urine 03/07/2021 21:41:45 6.0 5.0-7.5 (Units) Final Protein [Mass/volume] in Urine by Automated test strip 03/07/2021 21:41:45 Negative Negative (mg/dL) Final Urobilinogen [Mass/volume] in Urine by Automated test strip 03/07/2021 21:41:45 Normal Normal (mg/dL) Final Nitrite [Presence] in Urine by Automated test strip 03/07/2021 21:41:45 Negative Negative Final Leukocyte esterase [Presence] in Urine by Automated test strip 03/07/2021 21:41:45 Large Abnormal Negative Final RBC, Urine 03/07/2021 21:41:45 10-19 Abnormal 0-2 (/HPF) Final WBC, Urine 03/07/2021 21:41:45 20-29 Abnormal 0-2 (/HPF) Final Bacteria [#/area] in Urine sediment by Microscopy high power field 03/07/2021 21:41:45 0-25 0-25 (/HPF) Final Yeast [#/area] in Urine sediment by Microscopy high power field 03/07/2021 21:41:45 Present Abnormal None (/HPF) Final Performing Location [facility] [place] [facility] [address] [facility] [address]
--- OUTSIDE RECORDS SUMMARY | 2023-05-10 21:02 | External Medical Summary ---
Author Name Unknown Address Unknown Organization K01:LABORATORY [facility] - [address] [place] [address] Laboratory Report Ordering Provider Test Date Status GERRI DEMARCO 03/08/2021 03:40:00 Final Observation Date Value Abnormality Reference (Units ) Status Ferritin 03/08/2021 03:40:00 21 13-150 (ng /mL) Final Performing Location LABORATORY [facility] - [address] [address]
--- OUTSIDE RECORDS SUMMARY | 2023-05-10 21:03 | External Medical Summary | Summary of Care ---
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 Encounter Details Date Type Department Care Team Description 03/03/2021 Nutrition Services Nutrition & Weight Management, [facility] [address] [facility] [place] [address] Melissa Omalley, SAMANTHA [address] [place] [id number] Obesity, Class III, BMI 40-49.9 (morbid obesity) ([facility])*; Obesity, morbid (more than 100 lbs over ideal weight or BMI > 40) ([facility]); DM type 2, not at goal ([facility]); HTN, goal below 140/90; Cirrhosis of liver (HCC); Lymphedema; Dyslipidemia, goal LDL below 70; Hypothyroidism Allergies Active Allergy Reactions Severity Noted Date Comments Adhesive Tape Itching 04/29/2020 Penicillins Rash 02/12/2008 Perflutren Protein A Microsph 2019 Definity-lower back pain documented as of this encounter (statuses as of 03/03/2021) Medications Medication Sig Dispensed Refills Start Date [...] 120 Vial 11 10/02/2019 Active nystatin (NYSTOP) 917148 UNIT/GM powder Apply topically to affected area [...] 60 Each 3 07/27/2020 Active Dexcom G6 Signal Fitter Device Use as directed. To test [...] Strip 3 10/29/2020 Active OneTouch Delica Plus [id number] TESTING once daily 100 Each 3 10/29/2020 [...] less than 7.0% ([facility]) Use to inject insulin four times daily; E11.42 400 Each 3 12/05/2020 Active Fluticasone Propionate 50 MCG/ACT Nasal Suspension (Flonase)Indication s:Sinus congestion USE 2 SPRAYS IN EACH NOSTRIL ONCE DAILY as directed 16 g 5 12/23/2020 Active Additional Information Patient taking differently: 2 [place] Nasal DAILY PRN, Congestion, Informant: Pharmacy, Reported [...] as of this encounter (statuses as of 03/03/2021) Active Problems Problem Noted Date Anginal chest [...] as of this encounter (statuses as of 03/03/2021) Resolved Problems Problem Noted Date Resolved Date [...] pain 01/24/2012 01/17/2017 Genetic Sleep Disorder Research Other*[id number] 05/13/2011 04/07/2016 Obstructive sleep apnea 01/18/2011 12/27/19 [...] as of this encounter (statuses as of 03/03/2021) Immunizations Name Administration Dates Next Due COVID-19 [...] Reading Time Taken Comments Blood Pressure 122/68 03/03/2021 12:45 PM EDT Pulse 76 03/03/2021 12:45 PM EDT Temperature 36.3 C (97.3 F) 03/03/2021 12:45 PM E DT Respiratory Rate - - Oxygen Saturation - - Inhaled Oxygen Concentration - - Weight 117.5 kg (259 lb) 03/03/2021 12:45 PM EDT pt reported Height - - Body Mass Index 52.31 02/18/2021 4:54 PM EDT documented in this encounter Functional [...] shopping? (15 years old or older) Yes 06/10/20 21 Cognitive Status Response Date of Assessm ent Because of a physical, menta l, or emotional condition, do you have serious difficulty concentrating, remembering, or making decisions? (5 years old or older No 02/18/2021 documented as of this encounter Patient Instructions * Patient Instructions* Melissa Omalley RDN - 03/03/2021 1:04 PM EDT PATIENT GOALS: 1. Minimize/Avoid simple sugar foods [...] as snacks instead of processed simple carbs documented in this encounter Progress Notes * Melissa Omalley RDN - 03/03/2021 12:55 PM EDT WEIGHT MANAGEMENT FOLLOW UP [facility] Patient was identified at visit by name and date. DATE: 12/01/2020 Office Visit NUTRITION ASSESSMENT Diagnosis Code for [...] 130 with as high as 200-300 mg/dl Most recent weight: 264 lbs Ht: 4'11" BMI: 53.32 LAST OFFICE VISIT: 253 lbs 01/29/2020 WEIGHT CHANGES: Weight decreased 6 lbs since 07/16/2020. Wt Readings from Last 20 Encounters: 03/03/21 117.5 kg (259 lb) 03/03/21 117.5 [...] 9.6 oz) 06/09/20 113.4 kg (250 lb) 06/03/20 113.4 kg (250 lb) 05/29/20 116.1 kg (256 lb) 05/26/20 118.5 kg (261 lb 3.9 oz) 05/23/20 116.1 kg (256 lb) 05/13/20 113.4 kg (250 lb) Describes typical diet history/24 hr recall Breakfast: Oatmeal, egg or waffles Sausage or lam Lunch: Salad Dinner: Meat, potato and a vegetable Patient stated she si going to start Dietary recall reveals: Large portions Inadequate fruit and vegetable intake Drinks: 48-64 ounces of fluid a day MNT: Calorie Controlled Diet LABS: Component Latest Ref Rng & Units 02/28/2021 Glucose 70 - 120 mg/dL 342 (H) Patient checks blood glucose regularly with goal of 282 [...] Nursing Notes * Fatuma Hernandez LPN - 03/03/2021 12:49 PM EDT Pt verified identity by last name and date. Chief Complaint Patient presents with Weight Management diet counseling. documented in this encounter Plan of Treatment Upcoming Encounters Date Type Specialty Care Team Description 03/04/2021 Office Visit Family Medicine Alexandra Caceres, DO [address] [place] [address] [phone] 03/04/2021 Home Visit Family Medicine Kaylee Barakat, Community Health Coal Cutter [address] [place] [address] [phone] 03/08/2021 Office Visit Pharmacy [facility] [address] [place] [address] [phone] 03/08/2021 Laboratory Laboratory [facility] [address] [place] [address] [phone] 03/10/2021 Office Visit Cardiology Quyen Canseco CRNP [address] [place] [address] [phone] 03/16/2021 Office Visit Family Medicine Vanita Dunn MD [address] [place] [address] [phone] 04/09/2021 Immunization/Injection Hematology Oncolog y Nurse, Med [address] [place] [address] [phone] 04/16/2021 Office Visit Podiatry Prakash Martino, DPM [address] [place] [address] 04/29/2021 Appointment Radiology 06/07/2021 Nutrition Services Gastroenterology Melissa Omalley, RDN [address] [place] [address] [phone] 07/06/2021 Office Visit Hematology Oncology Tono Sanchez MD [address] [facility] [place] [address] [phone] 07/27/2021 Office Visit Gastroenterology Lyssa Stout CRNP [address] [place] [address] [phone] 09/09/2021 Imaging Radiology Health Maintenance Due Date Last Done Comments DIABETES-EYE EXAM 06/12/2019 06/12/2018, , 06/12/2018, Additional history exists Dexa Scan 2020 Zoster Vaccines (3 of 3) 06/23/2020 04/28/2020, 03/ DIABETES-FOOT EXAM 11/06/2020 11/06/2019, 0 01/09/2019, 12/26/2017, [...] of this encounter Implants Implanted Type Area User Experience Team Lead Device Identifier Shelf Expiration Date Model / Serial / Lot Microtech Sure Clip Implanted:Qty: 2 on 06/03/2020 by Janis Hatch DO at OR [facility] Clip N/A: Colon 04/21/2022 [facility]-F-26-2 35-C-R / / [id number] documented as of this encounter Visit Diagnoses Diagnosis Obesity, Class III, BMI 40-49.9 (morbid obesity) (HCC)- Primary Morbid obesity Obesity, morbid (more than 100 lbs over ideal weight or BMI > 40) (HCC) Morbid obesity DM type 2, not at goal (HCC) Type II or unspecified type diabetes mellitus without mention of complication, not stated as uncontrolled HTN, goal below 140/90 Unspecified essential hypertension Cirrhosis of liver (HCC) Cirrhosis of liver without mention of alcohol Lymphedema Other lymphedema Dyslipidemia, goal LDL below 70 Other and unspecified hyperlipidemia Hypothyroidism Unspecified hypothyroidism documented in this encounter Advance Directives Documents on File Type Date Recorded 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
--- OUTSIDE RECORDS SUMMARY | 2023-05-10 21:03 | External Medical Summary ---
Author Name UNSPECIFIED Address Unknown Organization [facility] History of Encounters Reason for Assessment: Start of care - f urther visits planned Inpatient discharge facility: Past 14 Da ys: Discharged From Short Stay Acute Hospital Most Recent Inpatient Discharge Date: Functional Assessment Patient Living Situation: Patient lives with other person(s) in the home: Around the clock Frequency Of Pain Interferin g With Patient's Activity Or Movement: Daily, but not constantly When Dyspneic: With minimal exertio n (e.g., while eating, talking, or performing other ADLs) or with agitation Urinary Incontinence or Urin nick Catheter Present: [...] Current Ability: Ambulation: Chairfast, unable to ambulate but is able to wheel self independently. Has Patient Had A Multi-fact or Fall [...] Problems Primary Home Care Diagnosis ICD Code: I1 1.0, Hypertensive heart disease with heart failure Home Care Diagnosis 1: ICD Code: I50.33, Acute on chronic diastolic (congestive) heart failure Home Care Diagnosis 1: [facility] Diagnosis 2: ICD Code: K74.69, Other cirrhosis of liver Home Care Diagnosis 2: [facility] Diagnosis 3: ICD Code: I85.10, Secondary esophageal varices without bleeding Home Care Diagnosis 3: [facility] Diagnosis 4: ICD Code: K75.81, Nonalcoholic steatohepatitis (NG) Home Care Diagnosis 4: [facility] Diagnosis 5: ICD Code: D50.0, Iron deficiency anemia secondary to blood loss (chronic) Home Care Diagnosis 5: [facility] Surgical wound: Yes, patient has at least one (observable) surgical wound
--- OUTSIDE RECORDS SUMMARY | 2023-05-10 21:03 | External Medical Summary ---
Author Name UNSPECIFIED Address Unknown Organization [facility] History of Encounters Reason for Assessment: Resumption [...] Primary Home Care Diagnosis ICD Code: I2 5.118, Athscl heart disease of [place] cor art w oth [facility] Home Care Diagnosis 1: ICD Code: I11.0, Hypertensive heart disease with heart failure Home Care Diagnosis 1: [facility] Diagnosis 2: ICD Code: I50.33, Acute on chronic diastolic (congestive) heart failure Home Care Diagnosis 2: [facility] Diagnosis 3: ICD Code: K74.69, Other cirrhosis of liver Home Care Diagnosis 3: [facility] Diagnosis 4: ICD Code: K75.81, Nonalcoholic steatohepatitis (NG) Home Care Diagnosis 4: [facility] Diagnosis 5: ICD Code: D61.818 , Other pancytopenia Home Care Diagnosis 5: [facility] Surgical wound: Yes, patient has at least one (observable) surgical wound
--- OUTSIDE RECORDS SUMMARY | 2023-05-10 21:03 | External Medical Summary ---
Author Name UNSPECIFIED Address Unknown Organization [facility] History of Encounters Reason for Assessment: Transferred to an inpatient facility - patient not discharged from agency Inpatient Facility where the patient been admitted: Hospital
--- OUTSIDE RECORDS SUMMARY | 2023-05-10 21:03 | External Medical Summary | Summary of Care ---
Author Name Unknown Organization [place] [address] Care Team Providers Care User Experience Developer Name Role Phone Maikel Caceres DO Primary Care Provider Reason for Visit * Reason Comments Hospital Follow-Up [facility] 01/30-02/02, 02/03- 02/06, 02/17-02-20. [facility] ED 01/01/21, 02/09/21 and 03/01/21. Chest discomfort yesterday and last 4-5 minutes with some sharp pains. Family hx of cardiac problems. Dizziness 5-10 minutes getting out of bed. SOB when laying flat at times. Edema in LE. Denies palpitations. * Evaluate & Treat - Unlimited Visits (Within 10 days (routine)) Status Reason Specialty Diagnoses / Procedures Referred By Contact Referred To Contact Closed Specialty Services Required Cardiovascular Medicine / Cardiology Diagnoses Chest pain, unspecified type Maikel Caceres DO [address] [place] [address] Encounter Details Date Type Department Care Team Description 03/03/2021 Office Visit Cardiology, [facility] [address] [facility] [place] [address] Dominga Arvizu PA-C [email or web address] [place] [address] Acute diastolic HF (heart failure) (HCC)*; SOB (shortness of breath); Venous stasis dermatitis of both lower extremities; THAD on CPAP; Lymphedema; Dyslipidemia, goal LDL below 70; Atypical chest pain Allergies Active Allergy Reactions Severity Noted Date [...] 120 Vial 11 0 Active nystatin (NYSTOP) 490220 UNIT/GM powder Apply topically to affected area [...] 60 Each 3 0 Active Dexcom G6 Nuclear Operator Device Use as directed. To test [...] Dx E11.9 1 Each 3 1 Active Nadolol 20 MG Oral Tablet (CORGARD)Indicati ons:HTN, goal below 140/90 One daily 90 Tab 1 1 Active Lidocaine-Priloca ine 2.5-2.5 % External Cream (Emla)Indications :Iron deficiency anemia due to chronic blood loss,Pancytopenia (HCC) Apply topically to affected area as needed for Other (for port). APPLY TO SKIN OVER MEDIPORT & COVER 1HR PRIOR TO ACCESSING. 30 g 3 1 Active OneTouch Verio In Vitro Strip (Glucose Blood) TESTING once daily 100 Strip 3 1 Active OneTouch Delica Plus [id number] TESTING once daily 100 Each 3 1 Active Levothyroxine Sodium 200 MCG Oral Tablet (Levoxyl) TAKE 1 TABLET BY MOUTH ONCE DAILY 90 Tab 3 1 Active Oxybutynin Chloride 5 MG Oral Tablet (Ditropan) TAKE 1 TABLET BY MOUTH TWICE DAILY 60 Tab 5 1 Active Gabapentin 300 MG Oral Capsule (Neurontin) TAKE 1 CAPSULE BY MOUTH EVERY MORNING, 1 CAPSULE MIDDAY AND 2 CAPSULES IN THE EVENING 180 Cap 5 1 Active Linzess 290 MCG Oral Capsule (linaCLOtide) TAKE 1 CAPSULE BY MOUTH ONCE DAILY BEFORE BREAKFAST 90 Cap 1 1 Active Cyclobenzaprine HCl 10 MG Oral Tablet (Flexeril) TAKE 1 TABLET BY MOUTH AT BEDTIME 30 Tab 2 1 Active traZODone HCl 50 MG Oral [...] Active Additional Information Patient taking differently: 2 [place] Nasal DAILY PRN, Congestion, Informant: Pharmacy, Reported [...] TWICE DAILY 180 Tab 1 1 Active Trulicity 4.5 MG/0.5ML Subcutaneous Solution Pen-injector (Dulaglutide) Inject one pen (4.5mg) under the skin once a week 6 mL 3 1 Active Lantus SoloStar 100 UNIT/ML Subcutaneous Solution Pen-injector (Insulin Glargine)Indicati ons:Type 2 diabetes mellitus with hemoglobin A1c goal of less than 7.0% (HCC) inject 30 units under skin at bedtime 30 mL 3 1 Active Insulin Aspart 100 UNIT/ML Subcutaneous Solution (NovoLOG) Inject 32 units under the skin before breakfast, 36 units before lunch, and 36 units before supper 105 mL 3 1 Active Cinnamon 500 MG Oral Capsule Take 500 mg by mouth daily. 0 Active rifAXIMin 550 MG Oral Tablet (Xifaxan) Take 1 Tab by mouth 2 times a day for 30 days. 60 Tab 0 1 03/08/20 21 Active Lactulose 20 GM/30ML Oral Solution (Constulose) Take 67.5 mL by mouth 3 times a day. Titrate to have 3 to 4 bowel movement every day. 2700 mL 2 1 Active traMADol HCl 50 MG Oral Tablet (Ultram)Indicatio ns:Abdominal pain, left lower quadrant Take 1 Tab by mouth every 6 hours as needed for Pain, Moderate. 30 Tab 0 1 Active Atorvastatin Calcium 80 MG Oral Tablet (Lipitor) Take 1 Tab by mouth at bedtime. 30 Tab 0 1 Active Aspirin 81 MG Oral Tablet Chewable Take 1 Tab by mouth daily. 30 Tab 0 1 Active Isosorbide Mononitrate ER 30 MG Oral Tablet Extended Release 24 Hour (Imdur) Take 1 Tab by mouth daily. 30 Tab 0 1 Active Spironolactone 25 MG Oral Tablet (Aldactone) Take 0.5 Tabs by mouth daily. 30 Tab 5 1 Active Furosemide 40 MG Oral Tablet (Lasix) Take 1 Tab by mouth daily. 30 Tab 5 1 Active Nitroglycerin 0.4 MG Sublingual Tablet Sublingual (Nitrostat) Place 1 Tab under the tongue every 5 minutes as needed for Pain, Chest. up to 3 doses in 15 minutes 25 Tab 11 1 Active potassium chloride ER 10 MEQ TBCRIndications:H ypokalemia TAKE 1 TABLET BY MOUTH ONCE DAILY WITH FOOD 90 Tab 3 0 03/03/20 21 Discontinued(Med ication/Dose Changed) Furosemide 20 MG Oral Tablet (Lasix)Indication s:Localized edema,Venous stasis dermatitis of both lower extremities Take 1 Tab by mouth daily. 90 Tab 3 1 03/03/20 21 Discontinued documented as of this encounter [...] pain 01/24/2012 01/17/2017 Genetic Sleep Disorder Research Other*[id number] 05/13/2011 04/07/2016 Obstructive sleep apnea 01/18/2011 12/27/19 [...] Sign Reading Time Taken Comments Blood Pressure 124/66 03/03/2021 11:04 AM EDT Pulse 80 03/03/2021 11:04 AM EDT Temperature 36.2 C (97.1 F) 03/03/2021 1 1:04 AM EDT Respiratory Rate 16 03/03/2021 11:0 4 AM EDT Oxygen Saturation - - Inhaled Oxygen Concentration - - Weight 117.5 kg (259 lb) 03/03/2021 11: 04 AM EDT Patient reported per Hospital stay Height - - Body Mass Index 52.31 [...] this encounter Patient Instructions * Patient Instructions* Dominga Arvizu PA-C - 03/03/2021 11:30 AM EDT Stop potassium 10 meq supplement Start spironolactone 25 mg - 1/2 tablet daily Increase furosemide to 40 mg - 1 tablet daily (You may take 2 of the 20 mg tablets until gone) New prescriptions sent to your pharmacy Prescription for nitro also sent to your pharmacy. Use one tablet under the tongue (let it dissolve), if chest pain lasts more than 5-10 minutes. Blood work early next week documented in this encounter Progress Notes * Dominga Arvizu PA-C - 03/03/2021 11:08 AM EDT Cardiology Consultation [facility] 03/03/2021 Reason for Consultation: Hosp F/U; CHF?; Chest pain; Possibly underlying CAD Provider Requesting Consultation: PCP: MAIKEL CACERES [address] [place] [address] [place] [address] [phone] History of Present Illness: Shaina Bustos is a very complex 65 year old female here today for cardiology consultation and evaluation post hospital discharge at [facility] in [place]. Patient has a very complex history including cerebral palsy and chronic pain syndrome for which sheis now wheelchair bound, cirrhosis of the liver/NG, restrictive lung disease, anemia, obesity, THAD, diabetes mellitus, hypertension, dyslipidemia, chronic venous stasis. The patient has been reportedly in the emergency room and admitted to [facility] on multiple occasions over the last 3 months. These records were reviewed in detail. Admission in January 2021 for shortness of breath and found to be hypervolemic is suggestive of acute CHF exacerbation. Echocardiogram was completed but was significantly limited in quality without definitive diagnosis, but preserved LV systolic function noted. She apparently has allergy to Definity. She was treated with IV diuretics with improvement in her symptoms. She was discharged on low- dose furosemide 20 mg daily. Repeat admission later in January 2021 for mental status changes. CT of the brain without acute changes. Her ammonia level was significantly elevated and treated with lactulose. GI was consulted and not Nadolol was continued. She was also started on Rifaximin. She had repeat ER visi t and admission in February on several occassions for chest pain. Cardiac enzymes were unremarkable. EKG without acute changes. She subsequently was sent for nuclear stress test which demonstrated a possible ischemia in inferior. Given complex history and comorbidities she was considered high risk for cardiac catheterization and medical management was recommended. She was started on aspirin, atorvastatin and isosorbide. Since that admission, she went back to the emergency room at [facility] for 1 recurrent episode of atypical chest pain. Workup was unremarkable. No med changes were made. She was also follow-up today for further evaluation. Patient presents today with her . Her primary concern is worsening fluid retention. She is not able to stand to be weighed. She is wheelchair bound. She notes worsening lower extremity edema over the last few weeks. She is taking furosemide 20 mg daily. She has orthopnea when lying in bed supine with intermittent chest heaviness. She had 1 episode of sharp stabbing left-sided chest pain yesterday. Symptoms resolved within 4 minutes. No radiation. No associated symptoms. No fever, cough, chills. No palpitations or tachy palpitations. No dizziness, syncope or near-syncope. Review of Systems: See HPI for pertinent positives. All others negative, other than those noted in HPI. Past Medical History: Patient Active Problem List Diagnosis Code Venous insufficiency I87.2 Spinal stenosis of lumbar region without neurogenic claudication M48.061 Cerebral palsy ([facility]) G80.9 Urinary tract infection N39.0 HTN, goal below 140/90 I10 Chronic rhinitis J31.0 NG (nonalcoholic steatohepatitis) K75.81 Venous stasis dermatitis of both lower extremities I87.2 DDD (degenerative disc disease), lumbar M51.36 Intermittent asthma with reliever use up to twice per week J45.20 Primary osteoarthritis of right knee M17.11 Lymphedema I89.0 Type 2 diabetes mellitus with hemoglobin A1c goal of less than 7.0% ([facility]) E11.9 Vitamin D deficiency E55.9 Restrictive lung disease J98.4 Obesity, morbid (more than 100 lbs over ideal weight or BMI > 40) ([facility]) E66.01 Dyslipidemia, goal LDL below 70 E78.5 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 R39.81 Atypical chest pain R07.89 Acquired hypothyroidism E03.9 Chronic pain syndrome G89.4 MEDICATION USE AGREEMENT [id number] Cirrhosis of liver ([facility]) K74.60 THAD on CPAP G47.33, Z99.89 Wheelchair dependent Z99.3 Pancytopenia ([facility]) D61.818 Ambulatory dysfunction R26.2 DM type 2 with diabetic peripheral neuropathy ([facility]) E11.42 Insomnia G47.00 Recurrent major depressive disorder, in partial remission ([facility]) F33.41 Impaired mobility and ADLs Z74.09, Z78.9 Generalized weakness R53.1 Gastroesophageal reflux disease K21.9 History of Achilles tendon repair Z98.890 Anemia D64.9 Fibromyalgia M79.7 Achilles tendinitis, right leg M76.61 DNR (do not resuscitate) Z66 Thrombocytopenia ([facility]) D69.6 Iron deficiency anemia due to chronic blood loss D50.0 Splenomegaly R16.1 Diabetic ulcer of right great toe ([facility]) E11.621, L97.519 Esophagitis K20.90 Esophageal varices ([facility]) I85.00 Uncontrolled type 2 diabetes mellitus with hyperglycemia ([facility]) E11.65 Cardiomegaly I51.7 SOB (shortness of breath) R06.02 Melena K92.1 Vancomycin resistant enterococcus culture positive Z22.39 Urinary catheter dysfunction ([facility]) T83.018A Cyst of pancreas K86.2 Calculus of kidney N20.0 Acute on chronic heart failure with preserved ejection fraction (HFpEF) ([facility]) I50.33 Anginal chest pain at rest ([facility]) I20.8 Past Surgical History: Procedure Laterality Date BONE DEBRIDEMENT, FIRST 20 CM2 Right 04/16/2020 DEBRIDEMENT SKIN SUBCUTANEOUS TISSUE MUSCLE AND BONE performed by Josh Vazquez MD at OR [facility] DELIVERY 04/20/1982 COLONOSCOPY 04/21/2009 repeat in 10 years COLONOSCOPY, DIAGNOSTIC (RECTUM) 10/04/2016 normal bx, repeat 10 yrs/[facility] COLONOSCOPY, DIAGNOSTIC (RECTUM) N/A 06/03/2020 internal hemorrhoids/biopsies show adenomatous polyps/recall 5 years/COLONOSCOPY FLEXIBLE PROXIMAL DIAGNOSTIC performed by Janis Hatch DO at OR [facility] COLONOSCOPY, DIAGNOSTIC (RECTUM) 03/17/2020 poor prep / [facility] DENTAL SURGERY PROCEDURE NEC wisdom teeth x 4 DILATION AND CURETTAGE (D&C) EGD, FLEXIBLE, DIAGNOSTIC 10/04/2016 gastritis/[facility] EGD, FLEXIBLE, DIAGNOSTIC 01/11/2018 eso varices, retained food, repeat 1 yr/[facility] EGD, FLEXIBLE, DIAGNOSTIC N/A 06/03/2020 severe erosive esophagitis/non-bleeding grade II esophageal varices/gastritis/biopsies show inflammatory changes/repeat 3-4 months/ESOPHAGOGASTRODUODENOSCOPY (EGD), FLEXIBLE, TRANSORAL, DIAGNOSTIC per formed by Janis Hatch DO at OR [facility] EGD, FLEXIBLE, DIAGNOSTIC 11/27/2019 eso varices, portal hypertensive gastropathy, gastritis / [facility] EGD, FLEXIBLE, DIAGNOSTIC N/A 08/05/2020 large amount of food in stomach/repeat 1.5 years/ESOPHAGOGASTRODUODENOSCOPY (EGD), FLEXIBLE, TRANSORAL, DIAGNOSTIC performed by Janis Hatch DO at OR [facility] IR [facility] 10/05/2020 PELVIS/HIP JOINT SURGERY NEC teenager aid in walking REPAIR/GRAFT ACHILLES TENDON age 40 aid in walking Family History: Family History Problem Relation Age of Onset Heart Disorder Father of [place] at age 61 Diabetes Father Heart Disorder Mother of [place] age 72 Cancer None Arthritis None Stroke None Heart Disorder Sister Mi at age 46 Hypertension Sister Mental Disorder None Social History: Social History Socioeconomic History Marital status: Spouse name: Syed Number of children: 1 Years of education: [...] file Gets together: Not on file Attends orthodox service: Not on file Active member of [...] file Social History Narrative 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49 education: 12 service: no hobbies/interests: reading transfusions: no exercise: no diet: no yazidism/confucianism: Raised yazdanism marital status: 2nd time 11/15 children: 1 gc: 0/15 for 2nd ggc: 0 pets: Dog, lots of cats exposure to violence/threats/abuse: no things to improve: no Vaping/E-Cigarette Use Vaping/E-Cigarette Use Never User Vaping/E-Cigarette Substances Nicotine No Other No Flavoring No THC No Cannabidiol (CBD) No Vaping/E-Cigarette Devices Disposable No Pre-filled or Refillable Cartridge No Refillable Tank No Pre-filled Pod No Allergies: Adhesive tape, Pcn [penicillins], and Perflutren protein a microsph Medications: Current Outpatient Medications Medication Sig Dispense Refill Furosemide 40 MG Oral Tablet (Lasix) Take [...] bowel movement every day. 2700 mL 2 rifAXIMin 550 MG Oral Tablet (Xifaxan) Take 1 Tab by mouth 2 times a day for 30 days. 60 Tab 0 Cinnamon 500 MG Oral Capsule Take 500 [...] DAILY 60 Tab 5 OneTouch Delica Plus [id number] TESTING once daily 100 Each 3 OneTouch Verio In Vitro Strip (Glucose Blood) TESTING once daily 100 Strip 3 Lidocaine-Prilocaine 2.5-2.5 % External Cream (Emla) Apply topically to affected area as neededfor Other (for port). APPLY TO SKIN OVER MEDIPORT & COVER 1HR PRIOR TO ACCESSING. 30 g 3 Nadolol 20 MG Oral Tablet (CORGARD) One daily 90 Tab 1 Dexcom G6 Nuclear Operator Device Use as directed. To test [...] With spacer 16 g 1 nystatin (NYSTOP) 668300 UNIT/GM powder Apply topically to affected area 3 times a day. 60 g 1 albuterol sulfate (PROVENTIL) (2.5 MG/3ML) 0.083% nebulizer solution Inhale 1 Vial via nebulizer every 6 hours as needed for Wheezing. 120 Vial 11 vitamin c (ASCORBIC ACID) 500 MG Tablet Take 500 mg by mouth daily. CENTRUM SILVER PO TABS Take 1 Tab by mouth daily. 1 Tab 0 OBJECTIVE/PHYSICAL EXAMINATION: BP 124/66 | Pulse 80 | Temp 36.2 C (97.1 F) | Resp 16 | Wt 117.5 kg (259 lb) Comment: Patient reported per Hospital stay | BMI 52.31 kg/m | BSA 2.21 m General: Obese. NAD. Eyes: conjunctiva are pink and non-injected, sclera clear Neck: normal jugular venous pulse, no hepatojugular reflux Chest: normal shape and normal respiratory effort Lungs: scattered wheezes. Cardiac Exam: Regular II/ systolic murmur LSB Abdomen: abdomen soft, non-tender, no abnormal masses and no hepatosplenomegaly Extremities: 2+ LE edema to knees Neuro: weakness of B/L LE Psych: appropriate affect and insight. Data: EKG reviewed from February 28, 2021: Normal sinus rhythm with first degree AV block Possible Inferior infarct Nonspecific T wave abnormality When compared with ECG of 17-FEB-2021 21:11 No significant changes noted. Nuclear stress test report reviewed dated February 19, 2001 at [facility]: IMPRESSION: Small Ischemic segment involving Inferior apical segment. Echocardiogram report reviewed dated January 31, 2021 at [facility]: Interpretation Summary Patient is allergic to Definity. Extremely limited study. Technically difficult due to body habitusand patient positioning. Patient was supine with HOB elevated. Markedly limited echo. Echo data is inadequate for quantitative assessment Normal overall LV systolic function Right ventricle inadequately visualized. A reliable valvular assessment is not possible from the available data. IMPRESSION: 65 year old female ICD-10-CM 1. Acute diastolic HF (heart failure) (HCC) I50.31 2. SOB (shortness of breath) R06.02 3. Venous stasis dermatitis of both lower extremities I87.2 4. THAD on CPAP G47.33 Z99.89 5. Lymphedema I89.0 6. Dyslipidemia, goal LDL below 70 E78.5 7. Atypical chest pain R07.89 RECOMMENDATIONS/PLAN: Complex patient here for hospital f/u/establish care. Multiple [facility] admissions and ER visits reviewed. Patient with hypervolemic state, likely multifactorial. Recent echo limited due to body habitus andpositioning. Was not able to assess valvular structures, but on exam, she has significant systolic murmur suggestive of aortic stenosis. Likely has acute diastolic and right sided HF due to obesity, HTN and possible valvular heart disease. She has worsening LE edema noted but has chronic lymphedema. Her chest pain is very atypical for cardiac etiology, yet she had a nuclear lexiscan with abnormality in the inferior wall. She would be very high risk for cardiac catheterization and intervention given her history of anemia, NG, esophageal varices and risks of bleeding on dual antiplatelet therapy. Ongoing med management recommended with ASA, statin, beta roxana (nadolol), and isosorbide. She requested bottle of SL Nitro and this was provided. She (and ) were educated on use. We discussed optimization of her fluid status. Recommend titration of furosemide to 40 mg daily and adding spironolactone 12.5 mg daily (1/2 tab of 25). She will stop her potassium supplement. BMP requested next week to monitor renal function and electrolytes. She should be followed closely with hematology for significant anemia as well. She has f/u with PCP as well. Future considerations for repeat echo discussed. Will discuss with echo lab. Will need to see if wheelchair reclines and/or use of lift available. Patient Instructions Stop potassium 10 meq supplement Start spironolactone 25 mg - 1/2 tablet daily Increase furosemide to 40 mg - 1 tablet daily (You may take 2 of the 20 mg tablets until gone) New prescriptions sent to your pharmacy Prescription for nitro also sent to your pharmacy. Use one tablet under the tongue (let it dissolve), if chest pain lasts more than 5-10 minutes. Blood work early next week I spent a total of 65 minutes on the date of service in preparation, delivery, and documentation ofthe care provided to Shaina Bustos excluding any time spent in the performance of separately billed services. The patient agrees to the above plan and will call with additional questions or concerns. ER with all emergencies advised. Check-out note: Blood work on Monday or Monday Keep f/u as scheduled in about 1 week - patient would like time changed? See if anything available - any PA/Doctor - was a new patient today Dominga Arvizu PA-C Department of Cardiology This chart was completed in part utilizing [employer] Speech Voice Recognition Software. Grammatical errors, random [...] documented in this encounter Nursing Notes * Alirio Corcoran LPN - 03/03/2021 11:03 AM EDT Patient identified by full name and date of Chief Complaint Patient presents with Hospital Follow-Up [facility] 01/30-02/02, 02/03-02/06, 02/17-02-20. [facility] ED 01/01/21, 02/09/21 and 03/01/21. Chest discomfort yesterday and last 4-5 minutes with some sharp pains. Family hx of cardiac problems. Dizziness 5-10 minutes getting out of bed. SOB when laying flat at times. Edema in LE. Denies palpitations. Examination Room: 1 Name: Shaina Bustos Date of : (1955). Reason for Visit: Hospital Follow UP Interim Hospitalization(s): Frequent trips see chief complaint Problems/Concerns: See chief complaint Chest Pain/SOB: See chief complaint [facility] is a way you can talk to your provider online through e-mail. Would you like to sign up? I can activate it for you? ALREADY ACTIVE Patient was instructed to not get up [...] Team Description 03/04/2021 Office Visit Family Medicine Maikel Caceres, DO [address] [place] [address] [phone] 03/04/2021 Home Visit Family Medicine Kaylee Barakat, [facility] Shell Worker [address] [place] [address] [phone] 03/08/2021 Office Visit Pharmacy [facility] [address], [place] [id number] 03/08/2021 Laboratory Laboratory [facility] [address], [place] [id number] 03/10/2021 Office Visit Cardiology Quyen Canseco CRNP [address] [place] [address] [phone] 03/16/2021 Office Visit Family Medicine Vanita Dunn MD [address], [place] [id number] 04/09/2021 Immunization/Injection Hematology Oncolog y Nurse, Med [address] [place] [address] [phone] 04/16/2021 Office Visit Podiatry Prakash Martino DPM [address] [place] [address] 04/29/2021 Appointment Radiology 06/07/2021 Nutrition Services Gastroenterology Melissa Omalley, SAMANTHA [address] [place] [address] [phone] 07/06/2021 Office Visit Hematology Oncology Tono Sanchez MD [address] [place] [address] [phone] 07/27/2021 Office Visit Gastroenterology Lyssa Stout CRNP [address] [facility] [place] [address] [phone] 09/09/2021 Imaging Radiology Scheduled Orders Name Type Priority Associated Diagnoses Orde r Schedule BASIC METABOLIC PANEL Lab Routine SOB (shortness of breath) Expected: 03/08/2021, Expires: 03/03/2022 Health Maintenance Due Date Last Done Comments [...] of this encounter Implants Implanted Type Area Siding Stapler Device Identifier Shelf Expiration Date Model / Serial / Lot [employer] Sure Clip Implanted:Qty: 2 on 06/03/2020 by Janis Hatch DO at OR [facility] Clip N/A: Colon 04/21/2022 [facility]-F-26-2 35-C-R / / [id number] documented as of this encounter Visit Diagnoses Diagnosis Acute diastolic HF (heart failure) (HCC)- Primary Acute diastolic heart failure SOB (shortness of breath) Shortness of breath Venous stasis dermatitis of both lower extremities THAD on CPAP Obstructive sleep apnea (adult) (pediatric) Lymphedema Other lymphedema Dyslipidemia, goal LDL below 70 Other and unspecified hyperlipidemia Atypical chest pain Other chest pain documented in this encounter Advance Directives Documents on File Type Date Recorded 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
--- OUTSIDE RECORDS SUMMARY | 2023-05-10 21:03 | External Medical Summary | Summary of Care ---
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 1 Kit 0 11/19/2019 Active potassium chloride ER 10 MEQ TBCRIndications:Hyp okalemia TAKE 1 TABLET BY MOUTH ONCE DAILY WITH FOOD 90 Tab 3 05/25/2020 Active silver sulfadiazine (SILVADENE) 1 % cream [...] 60 Each 3 07/27/2020 Active Dexcom G6 Burial Vault Maker Device Use as directed. To test [...] TO ACCESSING. 30 g 3 10/09/2020 Active [employer] Verio In Vitro Strip (Glucose Blood) TESTING once daily 100 Strip 3 10/29/2020 Active OneTouch Delica Plus [id number] TESTING once daily 100 Each 3 10/29/2020 [...] Active Additional Information Patient taking differently: 2 [place] Nasal DAILY PRN, Congestion, Informant: Pharmacy, Reported [...] before supper 105 mL 3 01/25/2021 Active Furosemide 20 MG Oral Tablet (Lasix)Indications: Localized edema,Venous stasis dermatitis of both lower extremities Take 1 Tab by mouth daily. 90 Tab 3 02/02/2021 Active Cinnamon 500 MG Oral Capsule Take [...] mouth daily. 30 Tab 0 02/21/2021 Active documented as of this encounter (statuses as of 03/01/2021) Active Problems Problem Noted Date Anginal chest [...] as of this encounter (statuses as of 03/01/2021) Resolved Problems Problem Noted Date Resolved Date [...] pain 01/24/2012 01/17/2017 Genetic Sleep Disorder Research Other*[id number] 05/13/2011 04/07/2016 Obstructive sleep apnea 01/18/2011 12/27/19 [...] as of this encounter (statuses as of 03/01/2021) Immunizations Name Administration Dates Next Due COVID-19 [...] (15 years old or older) Yes 02/19/20 Cognitive Status Response Date of Assessm ent Because of a physical, menta l, or emotional condition, do you have serious difficulty concentrating, remembering, or making decisions? (5 years old or older No 02/18/2021 documented as of this encounter Miscellaneous Notes * Telephone Encounter - Filomena Batres RN - 03/01/2021 3:54 PM EDT Case Management Assessment S: Reports: She took a nap because she didn't get home from the ER until 5 am. They gave her nitro and the chest pain went away. They did not change any of her medications and they did not add nitro.No pain since home. Increased edema: denies Chest pain denies since home Increased shortness of breath: denies Chills / Sweats / Fever: denies chills/sweats and denies fever Fall: denies any falls since last Care Management encounter Appetite: denies nausea, vomiting, burning, decreased appetite Bowel: denies problems Bladder: denies problems O: Phone visit for BALDOMERO. Medications: no cahnges Does this patient qualify for an annual wellness visit? No A: Patient Centered Prioritized Goals: Development of self - management action plan with patient/caregiver/ provider. Patient and caregiver demonstrate basic understanding of their disease process. Exacerbations have been prevented, minimized or reduced in severity. Identified Barriers: Patient/caregiver's lack of understanding of their condition and prescribed treatment plan P: Human Services Instructor Interventions: Reviewed upcoming appointments, Cards, RDN - 03/03/21, PCP 03/04- encouraged to discuss Nitro and CP with Cardiology and call with S/S bleeding, increased SOB, CP, cough,swelling or safety concerns. Reinforce Self Management Action Plan established at previous visit Reinforced safety education / fall prevention Reinforced medication regimen - timing / dosing / purpose Re-evaluation of plan of care and progress towards goals achievement: Plan to call patient in 1 week to reassess and update plan of care, instructed to call Case Manageror Primary Care Provider with change in symptoms or as needed before next follow-up, verbalizes understanding and agrees with plan. Filomena Batres RN Outpatient Human Services Instructor documented in this encounter Plan of Treatment Upcoming Encounters Date Type Specialty Care Team Description 03/03/2021 Office Visit Cardiology Dominga Arvizu PA-C [address] [facility] [place] [address] [phone] 03/03/2021 Nutrition Services Gastroenterology Melissa Omalley RDN [address] [place] [address] [phone] 03/04/2021 Office Visit Family Medicine Alexandra Caceres, DO [address] [place] [address] [phone] 03/04/2021 Home Visit Family Medicine Kaylee Barakat, Community Health Custom Feed Mill Operator Helper [address] [place] [address] 03/08/2021 Office Visit Pharmacy [facility] [address] [place] [address] [phone] 03/10/2021 Office Visit Cardiology Quyen Canseco CRNP [address] [place] [address] [phone] 03/16/2021 Office Visit Family Medicine Vanita Dunn MD [address] [place] [address] [phone] 04/09/2021 Immunization/Injection Hematology Oncolog y Nurse, Med 4 [address] [facility] [address] [phone] 04/16/2021 Office Visit Podiatry Prakash Martino, DPM [address] [place] [address] 04/29/2021 Appointment Radiology 07/06/2021 Office Visit Hematology Oncology Tono Sanchez MD [address] [place] [address] [phone] 07/27/2021 Office Visit Gastroenterology Lyssa Stout, ZAK [address] [facility] [place] [address] [phone] 09/09/2021 Imaging Radiology Health Maintenance Due Date [...] of this encounter Implants Implanted Type Area Wildlife And Game Protector Device Identifier Shelf Expiration Date Model / Serial / Lot [employer] Sure Clip Implanted:Qty: 2 on 06/03/2020 by Janis Hatch DO at OR [facility] Clip N/A: Colon 04/21/2022 [id number]-F-[id number] 35-C-R / / [id number] documented as of this encounter Advance Directives Documents on File Type Date Recorded Patient Finance Insurance Manager 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
--- OUTSIDE RECORDS SUMMARY | 2023-05-10 21:04 | External Medical Summary ---
Author Name Unknown Address Unknown Organization [id number]:LABORATORY [facility] [place] - [address] [place] [address] Laboratory Report Ordering Provider Test Date Status JAYESH MCDUFFIE 02/28/2021 23:51:00 Final Observation Date Value Abnormality Reference (Units ) Status Troponin T 02/28/2021 23:51:00 11 <=14 (ng/ L) Final Performing Location LABORATORY C - [address] [place] [address]
--- OUTSIDE RECORDS SUMMARY | 2023-05-10 21:04 | External Medical Summary ---
Author Name Unknown Address Unknown Organization [id number]:LABORATORY [facility] [place] - [address] [place] [address] Laboratory Report Ordering Provider Test Date Status ROXIE DOS SANTOS 03/01/2021 01:16:00 Final Observation Date Value Abnormality Reference (Units ) Status Troponin T 03/01/2021 01:16:00 10 <=14 (ng/ L) Final Performing Location [facility] - [address] [place] [address]
--- OUTSIDE RECORDS SUMMARY | 2023-05-10 21:04 | External Medical Summary ---
Author Name Unknown Address Unknown Organization [id number]:LABORATORY [facility] - [address] [place] [address] Laboratory Report Ordering Provider Test Date Status JAYESH MCDUFFIE 02/28/2021 23:51:00 Final Observation Date Value Abnormality Reference (Units ) Status WBC, Total 02/28/2021 23:51:00 3.99 Below low normal 4.00-10.80 (K/uL) Final RBC 02/28/2021 23:51:00 2.58 Below low normal 3.85-5.15 (M/uL) Final Hemoglobin 02/28/2021 23:51:00 8.4 Below low normal 12.0-15.3 (g/dL) Final HCT 02/28/2021 23:51:00 27.5 Below low normal 36.0-45.2 (%) Final MCV 02/28/2021 23:51:00 106.6 Above high normal 81.5-97.5 (fL) Final MCH 02/28/2021 23:51:00 32.6 27.0-34.0 (pg) Final MCHC 02/28/2021 23:51:00 30.5 Below low normal 32.0-36.0 (g/dL) Final RDW 02/28/2021 23:51:00 20.1 Above high normal 11.5-15.5 (%) Final MPV 02/28/2021 23:51:00 12.9 Above high normal 6.6-11.1 (fL) Final Nucleated erythrocytes/100 leukocytes [Ratio] in Blood by Automated count 02/28/2021 23:51:00 1 Above high normal <=0 (/100 WBCs) Final Platelets 02/28/2021 23:51:00 97 Below low normal 140-400 (K/uL) Final Performing Location LABORATORY [facility] - [address] [place] [place] [address]
--- OUTSIDE RECORDS SUMMARY | 2023-05-10 21:04 | External Medical Summary ---
Author Name Unknown Address Unknown Organization [id number]:[place] [place] [address] [place] [address] Laboratory Report Ordering Provider Test Date Status JAYESH MCDUFFIE 02/28/2021 23:51:00 Final Observation Date Value Abnormality Reference (Units ) Status BUN 02/28/2021 23:51:00 10 6-20 (mg/dL) Final Creatinine 02/28/2021 23:51:00 0.8 0.5-1.0 (mg/dL) Final Glomerular filtration rate/1.73 sq M.predicted [Volume Rate/Area] in Serum, Plasma or Blood by Creatinine-based formula (CKD-EPI) 02/28/2021 23:51:00 83.9 >=60.0 (mL/min) Final Performing Location [facility] [place] [address] [facility] [address]
--- OUTSIDE RECORDS SUMMARY | 2023-05-10 21:04 | External Medical Summary ---
Author Name Unknown Address Unknown Organization K01:LABORATORY [facility] [place] - [address] [place] [address] [place] [address] Laboratory Report Ordering Provider Test Date Status JAYESH MCDUFFIE 02/28/2021 23:51:00 Final Observation Date Value Abnormality Reference (Units ) Status CK-MB 02/28/2021 23:51:00 1.9 0.0-4.3 (n g/mL) Final Performing Location [facility] [address] [facility] [address]
--- OUTSIDE RECORDS SUMMARY | 2023-05-10 21:04 | External Medical Summary ---
Author Name Unknown Address Unknown Organization K01:LABORATORY [facility] [place] - [address] [facility] [address] Laboratory Report Ordering Provider Test Date Status AUGUST MCDUFFIEMARIELLAONE 02/28/2021 23:51:00 Final Observation Date Value Abnormality Reference (Units ) Status SYNC LEUKOCYTES IN BLOOD BY AUTOMATED COUNT 02/28/2021 23:51:00 3.99 Below low normal 4.00-10.80 (K/uL) Final Segs 02/28/2021 23:51:00 57.1 40.0-75.0 (%) Final Lymphs % 02/28/2021 23:51:00 24.3 18.0-42.0 (%) Final Monos 02/28/2021 23:51:00 11.3 Above high normal 1.0-11.0 (%) Final Eosinophils 02/28/2021 23:51:00 5.5 0.0-6.0 (%) Final Basos 02/28/2021 23:51:00 1.3 0.0-2.0 (%) Final Immature Granulocyte, Percent 02/28/2021 23:51:00 0.5 0.0-2.0 (%) Final Absolute Segs 02/28/2021 23:51:00 2.28 1.80-7.70 (K/uL) Final Lymphs, absolute 02/28/2021 23:51:00 0.97 Below low normal 1.00-4.80 (K/ul) Final Monos, Abs 02/28/2021 23:51:00 0.45 0.00-1.10 (K/uL) Final Eos, Abs 02/28/2021 23:51:00 0.22 0.00-0.70 (K/uL) Final Basos, Abs 02/28/2021 23:51:00 0.05 0.00-0.20 (K/uL) Final Immature Granulocytes, Number 02/28/2021 23:51:00 0.02 0.00-0.20 (K/uL) Final Performing Location LABORATORY [facility] [place] - [facility] [place] [address]
--- OUTSIDE RECORDS SUMMARY | 2023-05-10 21:05 | External Medical Summary ---
Author Name Unknown Address Unknown Organization K01:LABORATORY [facility] - [address] [place] [address] Laboratory Report Ordering Provider Test Date Status JACOB CORBETT 02/26/2021 14:44:00 Final Observation Date Value Abnormality Reference (Units ) Status Ferritin 02/26/2021 14:44:00 29 13-150 (ng /mL) Final Performing Location [facility] - [address] [place] [address]
--- OUTSIDE RECORDS SUMMARY | 2023-05-10 21:05 | External Medical Summary ---
Author Name Unknown Address Unknown Organization K01[place] [place] [address] [place] [address] Laboratory Report Ordering Provider Test Date Status JACOB CORBETT 02/26/2021 14:44:00 Final Observation Date Value Abnormality Reference (Units ) Status Iron 02/26/2021 14:44:00 59 33-151 (ug /dL) Final Iron-binding capacity 02/26/2021 14:44:00 283 250-425 (ug/dL) Final Transferrin Sat % 02/26/2021 14:44:00 21 15 -55 (%) Final Performing Location [facility] [place] [address] [place] [address]
--- OUTSIDE RECORDS SUMMARY | 2023-05-10 21:05 | External Medical Summary | Summary of Care ---
Author Name Unknown Organization [facility] Address 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 To test [...] Strip 3 10/29/2020 Active OneTouch Delica Plus [id number] TESTING once daily 100 Each 3 10/29/2020 [...] Active Additional Information Patient taking differently: 2 [place] Nasal DAILY PRN, Congestion, Informant: Pharmacy, Reported [...] as of this encounter (statuses as of 02/25/2021) Active Problems Problem Noted Date Anginal chest [...] as of this encounter (statuses as of 02/25/2021) Resolved Problems Problem Noted Date Resolved Date [...] 05/02/2012 06/07/2016 Diverticulosis of colon 05/02/2012 02/14/20 Obstipation 05/02/2012 03/28/2017 Internal hemorrhoids 04/12/2012 07/02/2014 [...] pain 01/24/2012 01/17/2017 Genetic Sleep Disorder Research Other*[id number] 05/13/2011 04/07/2016 Obstructive sleep apnea 01/18/2011 12/27/19 [...] as of this encounter (statuses as of 02/25/2021) Immunizations Name Administration Dates Next Due COVID-19 [...] encounter Miscellaneous Notes * Telephone Encounter - Maribeth Munguia RPh - 02/25/2021 11:59 AM EDT Refused Prescriptions: Disp Refills Cyclobenzaprine HCl 10 MG Oral Tablet (Fle*30 Tab 0 Sig: TAKE 1TABLET ONCE DAILY AT BEDTIME Refused By: MARIBETH MUNGUIA for Refusal: Duplicate Request---- documented in this encounter Plan of Treatment Upcoming Encounters Date Type Specialty Care Team Description 02/26/2021 Immunization/Injection Hematology Oncolog y Nurse, Med 4 [address] [place] [address] [phone] 03/03/2021 Office Visit Cardiology Dominga Arvizu PA-C [address] [place] [address] [phone] 03/03/2021 Nutrition Services Gastroenterology Melissa Omalley, RDN [address] [place] [address] [phone] 03/04/2021 Office Visit Family Medicine Alexandra Caceres DO [address] [place] [address] 03/04/2021 Home Visit Family Medicine Kaylee Barakat, Community Health Veterinary Surgeon [address] [place] [address] [phone] 03/08/2021 Office Visit Pharmacy [place] [address] [place] [address] 03/10/2021 Office Visit Cardiology Quyen Canseco CRNP [address] [place] [address] [phone] 03/16/2021 Office Visit Family Medicine Vanita Dunn MD [address] [place], [place] [address] 04/16/2021 Office Visit Podiatry Prakash Martino DPM [address] [place] [address] 04/29/2021 Appointment Radiology 07/06/2021 Office Visit Hematology Oncology Tono Sanchez MD [address] [facility], [place] [address] [phone] 07/27/2021 Office Visit Gastroenterology Lyssa Stout, ZAK [address] [address] [phone] 09/09/2021 Imaging Radiology Health Maintenance Due Date [...] of this encounter Implants Implanted Type Area Loan Processor Device Identifier Shelf Expiration Date Model / Serial / Lot [employer] Sure Clip Implanted:Qty: 2 on 06/03/2020 by Janis Hatch DO at OR [facility] Clip N/A: Colon 04/21/2022 [id number]-F-26-2 35-C-R / / [id number] documented as of this encounter Advance Directives Documents on File Type Date Recorded 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
--- OUTSIDE RECORDS SUMMARY | 2023-05-10 21:05 | External Medical Summary ---
Author Name Unknown Address Unknown Organization K09:[facility]ATORY [place] [address] [address] Laboratory Report Ordering Provider Test Date Status JACOB CORBETT 02/26/2021 14:22:00 Final Observation Date Value Abnormality Reference (Units ) Status SYNC LEUKOCYTES IN BLOOD BY AUTOMATED COUNT 02/26/2021 14:22:00 3.78 Below low normal 4.00-10.80 (K/uL) Final Segs 02/26/2021 14:22:00 53.4 40.0-75.0 (%) Final Lymphs % 02/26/2021 14:22:00 25.1 18.0-42.0 (%) Final Monos 02/26/2021 14:22:00 13.8 Above high normal 1.0-11.0 (%) Final Eosinophils 02/26/2021 14:22:00 6.9 Above high normal 0.0-6.0 (%) Final Basos 02/26/2021 14:22:00 0.8 0.0-2.0 (%) Final Absolute Segs 02/26/2021 14:22:00 2.02 1.80-7.70 (K/uL) Final Lymphs, absolute 02/26/2021 14:22:00 0.95 Below low normal 1.00-4.80 (K/ul) Final Monos, Abs 02/26/2021 14:22:00 0.52 0.00-1.10 (K/uL) Final Eos, Abs 02/26/2021 14:22:00 0.26 0.00-0.70 (K/uL) Final Basos, Abs 02/26/2021 14:22:00 0.03 0.00-0.20 (K/uL) Final Performing Location [facility]ORY [place] [address] [address]
--- OUTSIDE RECORDS SUMMARY | 2023-05-10 21:05 | External Medical Summary ---
Author Name Unknown Address Unknown Organization K09:LABORATORY [place] [place] [address] Laboratory Report Ordering Provider Test Date Status JACOB CORBETT 02/26/2021 14:22:00 Final Observation Date Value Abnormality Reference (Units ) Status WBC, Total 02/26/2021 14:22:00 3.78 Below low normal 4. 00-10.80 (K/uL) Final RBC 02/26/2021 14:22:00 2.38 Below low normal 3.8 5-5.15 (M/uL) Final Hemoglobin 02/26/2021 14:22:00 7.8 Below low normal 12 .0-15.3 (g/dL) Final HCT 02/26/2021 14:22:00 24.7 Below low normal 36. 0-45.2 (%) Final MCV 02/26/2021 14:22:00 103.8 Above high normal 81 .5-97.5 (fL) Final MCH 02/26/2021 14:22:00 32.8 27.0-34.0 (pg) Final MCHC 02/26/2021 14:22:00 31.6 Below low normal 32. 0-36.0 (g/dL) Final RDW 02/26/2021 14:22:00 21.1 Above high normal 11 .5-15.5 (%) Final Platelets 02/26/2021 14:22:00 81 Below low normal 140 -400 (K/uL) Final MPV 02/26/2021 14:22:00 Final Performing Location LABORATORY [place] [address]
--- OUTSIDE RECORDS SUMMARY | 2023-05-10 21:05 | External Medical Summary | Summary of Care ---
Author Name Unknown Organization [facility] [place] [address] Care Team Providers Care Associate Dean Of Women Name Role Phone NickiAlexandra Daisha MORENO Primary Care Provider Reason for Visit * Reason Comments Procedure Port flush, labs Encounter Details Date Type Department Care Team Description 02/26/2021 Immunization/In jection Hematology/Oncology Treatment, [place] [address] [place] [address] Nurse, Med [address] [place] [address] [phone] Iron deficiency anemia due to chronic blood loss* Allergies Active Allergy Reactions Severity Noted Date Comments Adhesive Tape Itching 04/29/2020 Penicillins Rash 02/12/2008 Perflutren Protein A Microsph 2019 Definity-lower back pain documented as of this encounter (statuses as of 02/26/2021) Medications Medication Sig Dispensed Refills Start Date [...] 120 Vial 11 10/02/2019 Active nystatin (NYSTOP) 665286 UNIT/GM powder Apply topically to affected area [...] 60 Each 3 07/27/2020 Active Dexcom G6 Contractor Field Hauling Device Use as directed. To test blood [...] Strip 3 10/29/2020 Active OneTouch Delica Plus [id number] TESTING once daily 100 Each 3 10/29/2020 [...] Active Additional Information Patient taking differently: 2 [place] Nasal DAILY PRN, Congestion, Informant: Pharmacy, Reported [...] as of this encounter (statuses as of 02/26/2021) Active Problems Problem Noted Date Anginal chest [...] as of this encounter (statuses as of 02/26/2021) Resolved Problems Problem Noted Date Resolved Date [...] pain 01/24/2012 01/17/2017 Genetic Sleep Disorder Research Other*[id number] 05/13/2011 04/07/2016 Obstructive sleep apnea 01/18/2011 12/27/19 [...] as of this encounter (statuses as of 02/26/2021) Immunizations Name Administration Dates Next Due COVID-19 [...] No 02/18/2021 documented as of this encounter Nursing Notes * Cathy Patton, RN - 02/26/2021 3:42 PM EDT Ch 3. Pt arrived today for port flush and labs. Pt states she recently was dc'd from hospital, she states they did use her port. Pt was due for labs today, obtained via port. Obtained CBCD, ferritin,iron screen, taken to S.[facility]. lab. Pt tolerated well. VAD (Venous Access Device) accessed with #20G 3/4" without difficulty. VAD flushed with 10 ml NSS and Heparin 5 ml (100 units/ml). Mason needle removed intact. Pt discharged in stable condition. documented in this encounter Plan of Treatment Upcoming Encounters Date Type Specialty Care Team Description 03/03/2021 Office Visit Cardiology Dominga Arvizu PA-C [address] [facility] [place] [address] [phone] 03/03/2021 Nutrition Services Gastroenterology Melissa Omalley, [place] [address] [place] [address] [phone] 03/04/2021 Office Visit Family Medicine Alexandra Caceres, [address] [place] [address] 03/04/2021 Home Visit Family Medicine Kaylee Barakat, [facility] [employer] Consultant [address] [place] [address] [phone] 03/08/2021 Office Visit Pharmacy [facility] [address] [place], [place] [address] 03/10/2021 Office Visit Cardiology Quyen Canseco CRNP 132 [facility] [place] [address] [phone] 03/16/2021 Office Visit Family Medicine Vanita Dunn MD [address] [place] [address] 04/09/2021 Immunization/Injection Hematology Oncolog y Nurse, Med [address] [place] [address] [phone] 04/16/2021 Office Visit Podiatry Prakash Martino DPM [address] [place] [address] 04/29/2021 Appointment Radiology 07/06/2021 Office Visit Hematology Oncology Tono Sanchez MD [address] [place] [address] [phone] 07/27/2021 Office Visit Gastroenterology Lyssa Stout, ZAK 132 [facility] [place] [address] [phone] 09/09/2021 Imaging Radiology Pending Results Name Type Priority Associated Diagnoses Date /Time IRON SCREEN, INCLUDING TIBC Lab STAT Iron deficiency anemia due to chronic blood loss 02/26/2021 2:44 PM EDT FERRITIN Lab STAT Iron deficiency anemia due to chronic blood loss 02/26/2021 2:44 PM EDT Health Maintenance Due Date Last [...] this encounter Implants Implanted Type Area Franchise Consultant Device Identifier Shelf Expiration Date Model / Serial / Lot Microtech Sure Clip Implanted:Qty: 2 on 06/03/2020 by Janis Hatch DO at OR [facility] Clip N/A: Colon 04/21/2022 [facility]-F-26-2 35-C-R / / [id number] documented as of this encounter Procedures Procedure Name Priority Date/Time Associated Diagnosis Comments AUTOMATED ANALYZER WBC DIFFERENTIAL STAT 02/26/2021 2:22 PM EDT Iron deficiency anemia due to chronic blood loss CBC WITH WBC DIFFERENTIAL STAT 02/26/2021 2:22 PM EDT Iron deficiency anemia due to chronic blood loss CBC STAT 02/26/2021 2:22 PM EDT Iron deficiency anemia due to chronic blood loss TECHNOLOGIST SLIDE REVIEW Routine 02/26/2021 2:22 PM EDT Iron deficiency anemia due to chronic blood loss documented in this encounter Results * TECHNOLOGIST SLIDE REVIEW (02/26/2021 2:22 PM EDT) Anisocytosis Slight(A) None Seen LABORATORY STAT E [place] 56-02 Elliptocytes Few(A) None Seen LABORATORY STAT E [place] 56-02 Hypochromia Slight(A) None Seen LABORATORY STAT E [place] 56-02 Polychromasia Slight(A) None Seen LABORATORY STA TE [place] 56-02 Tear Drop Cells Few(A) None Seen [facility] 56-02 Specimen Blood - Venous blood specime n (specimen) [facility] 56-[address] [place] [address] * AUTOMATED ANALYZER WBC DIFFERENTIAL (02/26/2021 2:22 PM EDT) WBC 3.78(L) 4.00 - 10.80 K/uL [facility] 56-02 Neutrophils % 53.4 40.0 - 75.0 % LABORATORY [facility] 56- Lymphocytes % 25.1 18.0 - 42.0 % [facility] 56 Monocytes % 13.8(H) 1.0 - 11.0 % [facility] 56 Eosinophils % 6.9(H) 0.0 - 6.0 % LABORATORY [address] Basophils % 0.8 0.0 - 2.0 % [address] Absolute Neutrophils 2.02 1.80 - 7.70 K/uL [address] Absolute Lymphocytes 0.95(L) 1.00 - 4.80 K/ul [place] [address] Absolute Monocytes 0.52 0.00 - 1.10 K/uL [place] [address] Absolute Eosinophils 0.26 0.00 - 0.70 K/uL [place] [address] Absolute Basophils 0.03 0.00 - 0.20 K/uL [address] Specimen Blood - Venous blood specime n (specimen) Performing Organization Address City/[facility] Co de Phone Number [place] [address] [place], [place] [id number] * CBC (02/26/2021 2:22 PM EDT) [facility] WBC 3.78(L) 4.00 - 10.80 K/uL [address] RBC 2.38(L) 3.85 - 5.15 M/uL [address] HGB 7.8(L) 12.0 - 15.3 g/dL [place] [address] HCT 24.7(L) 36.0 - 45.2 % [facility] MCV 103.8(H) 81.5 - 97.5 fL [facility] - MCH 32.8 27.0 - 34.0 pg [facility] 56 MCHC 31.6(L) 32.0 - 36.0 g/dL [address] RDW 21.1(H) 11.5 - 15.5 % [facility] Plt 81(L) 140 - 400 K/uL [facility] MPV Comment:No result - abnormal platelet distribution. [facility] - Specimen Blood - Venous blood specime n (specimen) Performing Organization Address [facility] Co de Phone Number LABORATORY [place] [phone] [place] [address] documented in this encounter Visit Diagnoses Diagnosis [...] IV Lock, PRN Other, IV Flush, Starting 02/26/21 at 1541, Until 02/27/21 at 1540, For 24 hours, Do not flush if lock, PICC, or central line not in place; IV infusing or unable to flush., Given 02/26/2021 3:48 PM EDT 500 Units sodium chloride 0.9% flush/inj 10 mL 10 mL, IV Push, PRN Other, IV Flush, Starting 02/26/21 at 1541, Until 02/27/21 at 1540, For 24 hours, Do not flush if lock, PICC, or central line not in place; IV infusing or unable to flush., Given 02/26/2021 3:48 PM EDT 10 mL documented in this encounter Advance Directives Documents on File Type Date Recorded 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
--- OUTSIDE RECORDS SUMMARY | 2023-05-10 21:05 | External Medical Summary ---
Author Name Unknown Address Unknown Organization K09:[facility] [address] [address] Laboratory Report Ordering Provider Test Date Status JACOB CORBETT 02/26/2021 14:22:00 Final Observation Date Value Abnormality Reference (Units ) Status Anisocytosis [Presence] in Blood by Light microscopy 02/26/2021 14:22:00 Slight Abnormal None Seen Final Elliptocytes [Presence] in Blood by Light microscopy 02/26/2021 14:22:00 Few Abnormal None Seen Final Hypochromia [Presence] in Blood by Light microscopy 02/26/2021 14:22:00 Slight Abnormal None Seen Final Polychromasia [Presence] in Blood by Light microscopy 02/26/2021 14:22:00 Slight Abnormal None Seen Final Dacrocytes [Presence] in Blood by Light microscopy 02/26/2021 14:22:00 Few Abnormal None Seen Final Performing Location [facility] [address] [address]
--- OUTSIDE RECORDS SUMMARY | 2023-05-10 21:05 | External Medical Summary | Summary of Care ---
Author Name Unknown Organization [place] [address] Care Team Providers Care Physiotherapist'S Assistant Name Role Phone NickiAlexandra Daisha MORENO Primary Care Provider [phone] Reason for Referral * Evaluate & Treat - Unlimited Visits (Within 10 days (routine)) Status Reason Specialty Diagnoses / Procedures Referred By Contact Referred To Contact Authorized Specialty Services Required Cardiovascular Medicine / Cardiology Diagnoses Anginal chest pain at rest (HCC) Joel Jordan MD [address] [place] [address] [address] Question Answer Referral Priority Within 10 days (routine) To which of the following clinics are you referring your patient? General Cardiology Clinic Comments 65 year old female disabled with CP Recent episode of chest discomfort, IP at [facility], found angina and started on nitrates Needs cardiology follow up Electronically signed by Joel Jordan MD at Reason for Visit * Reason Comments Hospital Follow-Up [facility] Blood Sugar Problem has been running 250 -400, 386 right now Change in Bowel Movements runny black Headache Continues with heada ches Encounter Details Date Type Department Care Team Description 02/25/2021 Office Visit [facility] [place] [address] [place] [facility] [place] [address] Joel Jordan MD [address] [place] [facility] [place] [address] Anginal chest pain at rest (HCC)*; Acute on chronic heart failure with preserved ejection fraction (HFpEF) (HCC); Spastic quadriplegic cerebral palsy (HCC); Type 2 diabetes mellitus with hemoglobin A1c goal of less than 7.0% ([facility]) Allergies Active Allergy Reactions Severity [...] 120 Vial 11 10/02/2019 Active nystatin (NYSTOP) 506154 UNIT/GM powder Apply topically to affected area [...] 3 07/27/2020 Active Dexcom G6 Child Development Professor Device Use as directed. To test [...] Strip 3 10/29/2020 Active OneTouch Delica Plus [id number] TESTING once daily 100 Each 3 10/29/2020 [...] less than 7.0% ([facility]) Use to inject insulin four times daily; E11.42 400 Each 3 12/05/2020 Active Fluticasone Propionate 50 MCG/ACT Nasal Suspension (Flonase)Indication s:Sinus congestion USE 2 SPRAYS IN EACH NOSTRIL ONCE DAILY as directed 16 g 5 12/23/2020 Active Additional Information Patient taking differently: 2 [place] Nasal DAILY PRN, Congestion, Informant: Pharmacy, Reported [...] than 7.0% ([facility]) inject 30 units under skin at bedtime [...] pain 01/24/2012 01/17/2017 Genetic Sleep Disorder Research Other*[id number] 05/13/2011 04/07/2016 Obstructive sleep apnea 01/18/2011 12/27/19 [...] Sign Reading Time Taken Comments Blood Pressure 132/84 02/25/2021 11:22 AM EDT Pulse 84 02/25/2021 11:22 AM EDT Temperature 36.2 C (97.2 F) 02/25/2021 11:22 AM E DT Respiratory Rate - - Oxygen Saturation 93% 02/25/2021 11:22 AM EDT Inhaled Oxygen Concentration - - [...] Progress Notes * Joel Jordan MD - 02/25/2021 8:59 PM EDT Subjective: Shaina Bustos is a 65 year old female Chief Complaint Patient presents with Hospital Follow-Up [facility] Blood Sugar Problem has been running 250-400, 386 right now Change in Bowel Movements runny black Headache Continues with headaches 22 HPI: Shaina Bustos is a 65 year old female who presents with a chief complaint of Hospital Follow-Up ([facility]), Blood Sugar Problem (has been running 250-400, 386 right now), Change in Bowel Movements(runny black ), and Headache (Continues with headaches) As listed above. Here with in a motorized wheelchair Multiple issues as listed above, including recently diagnosed with anginal chest discomfort, to be treated with lipid lowering, asa, and nitrates and cardiology followup Patient recently readmitted to [facility] on 02/17/21 with complaints of chest pain, serial troponins & EKG's were unremarkable to acute ischemic event, cardiology consult, patient had a NM myocardial SPECT study, the study revealed small ischemic segment involving inferior apical segment, medical management included treating with aspirin, statin & Imdur, patient given bowel regimen, had a BM day before discharge, discharged home with home health on 02/20/21. She is here for medical follow up after an inpatient stay. She states she is tired, not SOB and tolerating the nitrates imdur 30 mg daily, denies any more chest pains, she is tolerating medications so far notes black stools, not tarry, no unusual odors for her BMs, he denies any ingestion of pepto bismol Patient Active Problem List Diagnosis Code Venous insufficiency I87.2 Spinal stenosis of lumbar region without neurogenic claudication M48.061 Cerebral palsy ([facility]) G80.9 Urinary tract infection N39.0 HTN, goal [...] less than 7.0% ([facility]) E11.9 Vitamin D deficiency E55.9 Restrictive lung disease J98.4 Obesity, morbid (more than 100 lbs over ideal weight or BMI > 40) ([facility]) E66.01 Dyslipidemia, goal LDL below 70 E78.5 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 R39.81 Atypical chest pain R07.89 Acquired hypothyroidism E03.9 Chronic pain syndrome G89.4 MEDICATION USE AGREEMENT [id number] Cirrhosis of liver ([facility]) K74.60 THAD on CPAP G47.33, Z99.89 Wheelchair dependent Z99.3 Pancytopenia ([facility]) D61.818 Ambulatory dysfunction R26.2 DM type 2 with diabetic peripheral neuropathy ([facility]) E11.42 Insomnia G47.00 Recurrent major depressive disorder, in partial remission ([facility]) F33.41 Impaired mobility and ADLs Z74.09, Z78.9 Generalized weakness R53.1 Gastroesophageal reflux disease K21.9 History of Achilles tendon repair Z98.890 Anemia D64.9 Fibromyalgia M79.7 Achilles tendinitis, right leg M76.61 DNR (do not resuscitate) Z66 Thrombocytopenia ([facility]) D69.6 Iron deficiency anemia due to chronic blood loss D50.0 Splenomegaly R16.1 Diabetic ulcer of right great toe ([facility]) E11.621, L97.519 Esophagitis K20.90 Esophageal varices ([facility]) I85.00 Uncontrolled type 2 diabetes mellitus with hyperglycemia ([facility]) E11.65 Cardiomegaly I51.7 SOB (shortness of breath) R06.02 Melena K92.1 Vancomycin resistant enterococcus culture positive Z22.39 Urinary catheter dysfunction ([facility]) T83.018A Cyst of pancreas K86.2 Calculus of kidney N20.0 Acute on chronic heart failure with preserved ejection fraction (HFpEF) ([facility]) I50.33 Anginal chest pain at rest ([facility]) I20.8 Current Outpatient Medications Medication Sig Dispense Refill Aspirin 81 MG Oral Tablet Chewable Take [...] Capsule Take 500 mg by mouth daily. Furosemide 20 MG Oral Tablet (Lasix) Take 1 Tab by mouth daily. 90 Tab 3 Insulin Aspart 100 UNIT/ML Subcutaneous Solution (NovoLOG) [...] DAILY 60 Tab 5 OneTouch Delica Plus [id number] TESTING once daily 100 Each 3 OneTouch Verio In Vitro Strip (Glucose Blood) TESTING once daily 100 Strip 3 Lidocaine-Prilocaine 2.5-2.5 % External Cream (Emla) Apply topically to affected area as needed forOther (for port). APPLY TO SKIN OVER MEDIPORT & COVER 1HR PRIOR TO ACCESSING. 30 g 3 Nadolol 20 MG Oral Tablet (CORGARD) One daily 90 Tab 1 Dexcom G6 Child Development Professor Device Use as directed. To test [...] to right great toe 50 g 0 potassium chloride ER 10 MEQ TBCR TAKE 1 TABLET BY MOUTH ONCE DAILY WITH FOOD 90 Tab 3 Blood Glucose Monitoring Suppl (BLOOD GLUCOSE MONITOR SYSTEM) w/Device KIT Use to test once per day. 1 Kit 0 Albuterol Sulfate (ALBUTEROL HFA) 108 (90 BASE) MCG/ACT inhaler Inhale 2 Puffs by mouth every 4 hours as needed for Cough or Wheezing. With spacer 16 g 1 nystatin (NYSTOP) 677842 UNIT/GM powder Apply topically to affected area 3 times a day. 60 g 1 albuterol sulfate (PROVENTIL) (2.5 MG/3ML) 0.083% nebulizer solution Inhale 1 Vial via nebulizer every 6 hours as needed for Wheezing. 120 Vial 11 vitamin c (ASCORBIC ACID) 500 MG Tablet Take 500 mg by mouth daily. CENTRUM SILVER PO TABS Take 1 Tab by mouth daily. 1 Tab 0 Review of patient's allergies indicates: Allergen Reactions [...] less than 7.0% ([facility]) 09/26/2013 ICD-10 update of inactive term Past Surgical History: Procedure Laterality Date BONE DEBRIDEMENT, FIRST 20 CM2 Right 04/16/2020 DEBRIDEMENT SKIN SUBCUTANEOUS TISSUE MUSCLE AND BONE performed by Josh Vazquez MD at [facility] DELIVERY 04/20/1982 COLONOSCOPY 04/21/2009 repeat in 10 years COLONOSCOPY, DIAGNOSTIC (RECTUM) 10/04/2016 normal bx, repeat 10 yrs/[facility] COLONOSCOPY, DIAGNOSTIC (RECTUM) N/A 06/03/2020 internal hemorrhoids/biopsies show adenomatous polyps/recall 5 years/COLONOSCOPY FLEXIBLE PROXIMAL DIAGNOSTIC performed by Janis Hatch DO at OR [facility] COLONOSCOPY, DIAGNOSTIC (RECTUM) 03/17/2020 poor [...] formed by Janis Hatch DO at OR [facility] EGD, FLEXIBLE, DIAGNOSTIC 11/27/2019 eso varices, portal hypertensive gastropathy, gastritis / [facility] EGD, FLEXIBLE, DIAGNOSTIC N/A 08/05/2020 large amount of food in stomach/repeat 1.5 years/ESOPHAGOGASTRODUODENOSCOPY (EGD), FLEXIBLE, TRANSORAL, DIAGNOSTIC performed by Janis Hatch DO at OR [facility] IR VENOUS ACCESS MEDIPORT 10/05/2020 PELVIS/HIP JOINT SURGERY NEC teenager aid in walking REPAIR/GRAFT ACHILLES TENDON age 40 aid in walking Objective: The patient is a 65 year old female BP 132/84 | Pulse 84 | Temp 36.2 C (97.2 F) (Tympanic) | SpO2 93% General: alert, anxious, cooperative, mild distress, obese and pale, she is examined in the wheelchair Oropharynx: no exudate, no erythema, lips, buccal mucosa, and tongue normal and mucous membranes are moist Neck: supple, no adenopathy, no bruits, thyroid normal size, non-tender, without nodularity, no stridor, non-tender, neck veins flat, trachea midline Heart: regular rate & rhythm, no murmurs, no gallops and distant sounds no gross murmur, no gallops Lungs: chest symmetric with normal AP diameter, no chest deformities noted, no chest wall tenderness, lungs clear to auscultation, decreased breath sounds Abdomen: abdomen soft, non-tender, obese, normal bowel sounds and no masses or organomegaly Extremities: less than 2 second capillary refill, no joint deformities, effusion, or inflammation ASSESSMENT/PLAN: Anginal chest pain at rest (HCC) (Primary) - CARDIOLOGY REFERRAL OP Acute on chronic heart failure with preserved ejection fraction (HFpEF) ([facility]) Spastic quadriplegic cerebral palsy ([facility]) Type 2 diabetes mellitus with hemoglobin A1c goal of less than 7.0% ([facility]) Check-out note: Cardiology appt for next week Joel Jordan MD [address] [address] documented in this encounter Nursing Notes * Tamara Fabian LPN - 02/25/2021 11:25 AM EDT Chief Complaint Patient presents with Hospital Follow-Up [facility] Blood Sugar Problem has been running 250-400, 386 right now Change in Bowel Movements runny black Headache Continues with headaches documented in this encounter Plan of Treatment Upcoming Encounters Date Type Specialty Care Team Description 02/26/2021 Immunization/Injection Hematology Oncolog y Nurse, Med 4 [address] [facility] [place] [address] [phone] 03/03/2021 Office Visit Cardiology Dominga Arvizu PA-C [address] [facility] [place] [address] [phone] 03/03/2021 Nutrition Services Gastroenterology Melissa Omalley, [place] [address] [facility] [place] [address] 03/04/2021 Office Visit Family Medicine Alexandra Caceres DO [address] [place] [address] 03/04/2021 Home Visit Family Medicine Kaylee Barakat, Community [facility] Drilling Foreman [address] [place] [address] [phone] 03/08/2021 Office Visit Pharmacy [place] [address] [place], [place] [address] 03/10/2021 Office Visit Cardiology Quyen Canseco CRNP [address] [place] [address] [phone] 03/16/2021 Office Visit Family Medicine Vanita Dunn MD [address] [place] [address] 04/16/2021 Office Visit Podiatry Prakash Martino, [facility] [address] [place] [address] 04/29/2021 Appointment Radiology 07/06/2021 Office Visit Hematology Oncology Tono Sanchez MD 200 [place] [address] [phone] 07/27/2021 Office Visit Gastroenterology Lyssa Stout CRNP [address] [place] [address] [phone] 09/09/2021 Imaging Radiology Scheduled Referrals Name Type Priority Associated Diagnoses Orde r Schedule CARDIOLOGY REFERRAL OP Referral Within 10 days (routine) Anginal chest pain at rest (HCC) Ordered: 02/25/2021 Health Maintenance Due Date Last Done Comments [...] of this encounter Implants Implanted Type Area Engraver Wood Device Identifier Shelf Expiration Date Model / Serial / Lot Microtech Sure Clip Implanted:Qty: 2 on 06/03/2020 by Janis Hatch DO at OR [facility] Clip N/A: Colon 04/21/2022 [facility]-F-26-2 35-C-R / / [id number] documented as of this encounter Visit Diagnoses Diagnosis Anginal chest pain at rest (HCC)- Primary Angina decubitus Acute on chronic heart failure with preserved ejection fraction (HFpEF) (HCC) 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
--- OUTSIDE RECORDS SUMMARY | 2023-05-10 21:06 | External Medical Summary | Summary of Care ---
Author Name Unknown Organization [facility] Address [place] [address] Care Team Providers Care Butter Wrapper Name Role Phone QamarkleberAlexandra fernandez Primary Care Provider [phone] Encounter Details Date Type Department Care Team Description 02/22/2021 Produce SpecialistAgricultural [facility] [address] [place] [address] Connie Arguello, UMA [address] [place] [address] Chest pain, unspecified type* Allergies Active Allergy Reactions Severity Noted Date Comments Adhesive Tape Itching 04/29/2020 Penicillins Rash 02/12/2008 Perflutren Protein A Microsph 2019 Definity-lower back pain documented as of this encounter (statuses as of 02/22/2021) Medications Medication Sig Dispensed Refills Start Date [...] 120 Vial 11 10/02/2019 Active nystatin (NYSTOP) 692214 UNIT/GM powder Apply topically to affected area [...] 60 Each 3 07/27/2020 Active Dexcom G6 Grab Setter Device Use as directed. To test [...] Strip 3 10/29/2020 Active OneTouch Delica Plus [id number] TESTING once daily 100 Each 3 10/29/2020 [...] Active Additional Information Patient taking differently: 2 [place] Nasal DAILY PRN, Congestion, Informant: Pharmacy, Reported [...] as of this encounter (statuses as of 02/22/2021) Active Problems Problem Noted Date Anginal chest [...] as of this encounter (statuses as of 02/22/2021) Resolved Problems Problem Noted Date Resolved Date [...] pain 01/24/2012 01/17/2017 Genetic Sleep Disorder Research Other*[id number] 05/13/2011 04/07/2016 Obstructive sleep apnea 01/18/2011 12/27/19 [...] as of this encounter (statuses as of 02/22/2021) Immunizations Name Administration Dates Next Due COVID-19 [...] Progress Notes * Connie Arguello, UMA - 02/22/2021 1:53 PM EDT Case Management Assessment-spoke with patient & her Syed, patient readmitted to [facility] on 02/17/21 with complaints of chest pain, serial troponins & EKG's were unremarkable to acute ischemic event, cardiology consult, patient had a NM myocardial SPECT study, the study revealed small ischemic segment involving inferior apical segment, medical management included treating with aspirin, statin & Imdur, patient given bowel regimen, had a BM day before discharge, discharged home with home health on 02/20/21 Is this call for a hospital, residential or rehab facility discharge to home? Yes see above S: Reports: Per patient & her Syed, patient denies increased SOB, does have a cough, using O2 at 2 liters at night Has "a little" chest pains, not as much as she did when she was taken to the ER LE edema is "down some" Has a good appetite, denies urinary complaints, had one small BM since being home confirms patient is taking the prescribed Lactulose 67.5 cc 3 times a day Explained to that her Lactulose is to be titrated so she has 3-4 BM's daily Despite taking reported Lactulose, patient continues to have issues with constipation Patient seen by GI in January 2021, encouraged to have patient take Miralax daily 17 gm to keepher bowels moving Patient's stated he would get some Miralax & would start giving it to Shaina daily No complaints of pain, denies skin breakdown Blood sugars running in the 200's Patient remains non-ambulatory, uses a candace lift to transfer patient from bed to a chair Called [facility]-was told they would be seeing patient on 02/24/21 [facility] patients caregiver was there this morning to help patient with bathing Encouraged to call to get a PCP follow up appointment this week O: Phone visit for post hospitalization. Medications: confirmed with [facility] pharmacy that patient is getting the newly prescribed medications in her pill packs and takes all medications as prescribed. Does this patient qualify for an annual wellness visit? No A: Patient Centered Prioritized Goals: prevent constipation, prevent skin breakdown, prevent exacerbation of CHF, stay safe in her home, prevent readmission Co-morbid conditions identified and managed. Patient/ caregiver demonstrates adherence to treatment plan. Identified Barriers: Non Adherence to prescribed treatment plan FUNCTIONAL STATUS: (Definition - assess ability to patient to manage their own care, includes evaluation of activities of daily living, and instrumental activities of daily living, and cognitive abilities status) ADL'S - Needs Assistance With: Bathing, Eating, Dressing, Toileting, Transferring and Continence IADL'S - Needs Assistance With: Grocery Shopping, Cooking food, Routine Housework, Using telephone, Taking medications, Attending to safety and Managing money Cognitive and Mental Health: alert and oriented x 2 and able to communicate, understand some instructions, process some information P: Produce Specialist Interventions: Encouraged patient/ to call with increased SOB, cough, fever,chills, increased LE/abdominal edema Reviewed HF symptom monitoring: -Weigh self daily [...] if at night -increased fatigue or vertigo --Constipation: Increase activity Drink plenty of fluids Eat more fiber, fresh fruits and vegetables Consider Miralax daily Avoid harsh laxatives Call with any abdominal pain, cramping, fever or chills Encouraged patient to: Raise your legs above your heart while lying down. Exercise your legs. This helps pump fluid from your legs back to your heart. Follow a low-salt diet, which may reduce fluid buildup and swelling. Reinforced sodium restriction Reinforced CHO consistency Reinforced safety education / fall prevention Reinforced medication regimen - timing / dosing / purpose Take medications as prescribed Discussed the importance of safety precautions Keep f/u appointments PCP follow up appointment Advised to call office for any change in health status or questions concerning care Encouraged patient to call case advocate with any questions/concerns at [phone]. Office Hours: Mon- 8-8 pm, Monday 8-5 pm, [facility] weekend clinic hours: Saturdays 8-5, Sundays 8-5 PCP Notified of enrollment in CM/HM program: Yes SNP Member? No Re-evaluation of plan of care and progress towards goals achievement: Plan to call patient at the end of the week to reassess and update plan of care, verbalizes understanding and agrees with plan. Connie Arguello RN Outpatient Produce Specialist documented in this encounter Plan of Treatment Upcoming Encounters Date Type Specialty Care Team Description 02/26/2021 Immunization/Injection Hematology Oncolog y Nurse, Med [address] [place] [address] [phone] 03/03/2021 Office Visit Cardiology Dominga Arvizu PA-C [address] [place] [address] [phone] 03/03/2021 Nutrition Services Gastroenterology Melissa Omalley RDN [address] [place] [address] [phone] 03/04/2021 Office Visit Family Medicine Alexandra Caceres DO [address] [place] [facility] [place] [address] [phone] 03/08/2021 Office Visit Pharmacy [place], [facility] [address], [place] [address] 03/16/2021 Office Visit Family Medicine Vanita Dunn MD [address] [facility], [place] [address] 04/16/2021 Office Visit Podiatry Prakash Martino, [facility] [address] [place] [address] 04/29/2021 Appointment Radiology 07/06/2021 Office Visit Hematology Oncology Toon Sanchez MD [address] [place] [address] [phone] 07/27/2021 Office Visit Gastroenterology Lyssa Stout CRNP [address] [facility] [place] [address] [phone] 09/09/2021 Imaging Radiology Health Maintenance Due Date [...] of this encounter Implants Implanted Type Area Steel Wool Machine Operator Device Identifier Shelf Expiration Date Model / Serial / Lot Microtech Sure Clip Implanted:Qty: 2 on 06/03/2020 by Janis Hacth DO at OR [facility] Clip N/A: Colon 04/21/2022 [facility]-F-26-2 35-C-R / / [id number] documented as of this encounter Visit Diagnoses Diagnosis Chest pain, unspecified type- Primary documented in this encounter Advance Directives Documents on File Type Date Recorded Patient Political Advisor 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
--- OUTSIDE RECORDS SUMMARY | 2023-05-10 21:06 | External Medical Summary | Summary of Care ---
Author Name Unknown Organization [facility] Address [place] [address] Care Team Providers Care Mail Deliverer Name Role Phone Maikel Caceres DO Primary Care Provider Reason for Visit * Reason Onset Date Comments Hospital Follow-Up 02/20/2021 Encounter Details Date Type Department Care Team Description 02/20/2021 Telephone [place] [id number] [place] [address] Maikel Caceres DO [address] [place] [address] Hospital Follow-Up Allergies Active Allergy Reactions Severity Noted Date Comments Adhesive Tape Itching 04/29/2020 Penicillins Rash 02/12/2008 Perflutren Protein A Microsph 2019 Definity-lower back pain documented as of this encounter (statuses as of 02/24/2021) Medications Medication Sig Dispensed Refills Start Date [...] 120 Vial 11 10/02/2019 Active nystatin (NYSTOP) 257259 UNIT/GM powder Apply topically to affected area [...] 60 Each 3 07/27/2020 Active Dexcom G6 Backer Up Device Use as directed. To test blood [...] Strip 3 10/29/2020 Active OneTouch Delica Plus [id number] TESTING once daily 100 Each 3 10/29/2020 [...] Active Additional Information Patient taking differently: 2 [place] Nasal DAILY PRN, Congestion, Informant: Pharmacy, Reported [...] as of this encounter (statuses as of 02/24/2021) Active Problems Problem Noted Date Anginal chest [...] as of this encounter (statuses as of 02/24/2021) Resolved Problems Problem Noted Date Resolved Date [...] pain 01/24/2012 01/17/2017 Genetic Sleep Disorder Research Other*[id number] 05/13/2011 04/07/2016 Obstructive sleep apnea 01/18/2011 12/27/19 [...] as of this encounter (statuses as of 02/24/2021) Immunizations Name Administration Dates Next Due COVID-19 [...] encounter Miscellaneous Notes * Telephone Encounter - Talita Caballero OSA - 02/24/2021 12:08 PM EDT Scheduled * Telephone Encounter - Carrie Saini OSA - 02/20/2021 3:50 PM EDT Called, pt not home yet. Will call when home 02/20/21 CRS * Telephone Encounter - Quyen Farias OSA - 02/20/2021 3:21 PM EDT Patient Name: RYLAND SHAW([id number]) Sex: Female : 1955 PCP: MAIKEL CACERES Center: None Level of Service:228[address] [place] EMERGENCY DEPT VISIT HIGH SEVERITY&THREAT FUNCJ Types of orders made on 02/20/2021: IP Discharge, IP Post Discharge , Lab, Medications, Point of Care Test ing, Point of Care Testing - Unsolicited Results Order Date:02/20/2021 Ordering User:JACOB SOUSA [[id number]] Attending Provider:Dilip Munguia DO [[id number]] Authorizing Provider: Jacob Sousa DO [[id number]] Department:[address][[id number]] Order Specific Information Order: RETURN APPT [CUSTOM: [id number]] Order #: [id number]: 1 Priority: Routine Class: Nursing Unit Department (Single Entry) -> Family Practice Appt Needed Within: (Specify # of Days, Weeks, Months) -> 1 Wk Released on: 02/20/2021 2:40 PM Priority: Routine Class: Nursing Unit Department (Single Entry) -> Family Practice Appt Needed Within: (Specify # of Days, Weeks, Months) -> 1 Wk Released on: 02/20/2021 2:40 PM documented in this encounter Plan of Treatment Upcoming Encounters Date Type Specialty Care Team Description 02/25/2021 Office Visit Family Medicine Joel Jordan MD [address] [place] [address] 02/26/2021 Immunization/Injection Hematology Oncolog y Nurse, Med 4 [address] [facility], [place] [address] [phone] 03/03/2021 Office Visit Cardiology Dominga Arvizu PA-C [address] [place] [address] [phone] 03/03/2021 Nutrition Services Gastroenterology Yohn, Melissa Serafin, RDN [address] [place] [address] [phone] 03/04/2021 Office Visit Family Medicine Maikel Caceres DO [address] [place] [address] [phone] 03/04/2021 Home Visit Family Medicine Kaylee Barakat, Community Health Validation Scientist [address] [place] [address] [phone] 03/08/2021 Office Visit Pharmacy [place], [facility] [address] [place] [address] 03/16/2021 Office Visit Family Medicine Vanita Dunn MD [address] [place] [address] 04/16/2021 Office Visit Podiatry Prakash Martino, [facility] [address] [place] [address] 04/29/2021 Appointment Radiology 07/06/2021 Office Visit Hematology Oncology Tono Sanchez MD [address] [place] [address] [phone] 07/27/2021 Office Visit Gastroenterology Lyssa Stout CRNP [address] [facility] [place] [address] [phone] 09/09/2021 Imaging Radiology Health Maintenance Due Date [...] of this encounter Implants Implanted Type Area Button Buttonhole Marker Device Identifier Shelf Expiration Date Model / Serial / Lot Microtech Sure Clip Implanted:Qty: 2 on 06/03/2020 by Janis Hatch DO at OR [facility] Clip N/A: Colon 04/21/2022 [facility]-F-26-2 35-C-R / / [id number] documented as of this encounter Advance Directives Documents on File Type Date Recorded Patient Medical Logistics Specialist 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 [facility] p Communication Syed Shaw Spouse Emergency Contact
--- OUTSIDE RECORDS SUMMARY | 2023-05-10 21:06 | External Medical Summary | Summary of Care ---
Author Name Unknown Organization [facility] Address [facility] [place] [address] Care Team Providers Care Electric Shaver Mechanic Name Role Phone Maikel Caceres DO Primary Care Provider [phone] Reason for Visit * Reason Comments eRx-Medication Refill Encounter Details Date Type Department Care Team Description 02/20/2021 Refill [place] [address] [place] [address] Maikel Caceres DO [address] [place] [address] Allergies Active Allergy Reactions Severity [...] 120 Vial 11 10/02/2019 Active nystatin (NYSTOP) 362839 UNIT/GM powder Apply topically to affected area [...] 60 Each 3 07/27/2020 Active Dexcom G6 Provider Network Analyst Device Use as directed. To test [...] Strip 3 10/29/2020 Active OneTouch Delica Plus [id number] TESTING once daily 100 Each 3 10/29/2020 [...] than 7.0% ([facility]) Use to inject insulin four times daily; E11.42 400 Each 3 12/05/2020 Active Fluticasone Propionate 50 MCG/ACT Nasal Suspension (Flonase)Indication s:Sinus congestion USE 2 SPRAYS IN EACH NOSTRIL ONCE DAILY as directed 16 g 5 12/23/2020 Active Additional Information Patient taking differently: 2 [place] Nasal DAILY PRN, Congestion, Informant: Pharmacy, Reported [...] pain 01/24/2012 01/17/2017 Genetic Sleep Disorder Research Other*[id number] 05/13/2011 04/07/2016 Obstructive sleep apnea 01/18/2011 12/27/19 [...] Telephone Encounter - Maikel Caceres DO - 02/24/2021 8:48 AM EDT Refused Prescriptions: Disp Refills Cyclobenzaprine HCl 10 MG Oral Tablet (Fle*30 Tab 2 Sig: TAKE 1 TABLET ONCE DAILY AT BEDTIME Refused By: MAIKEL CACERES Reason for Refusal: Unexpected request: Telephone review of med list * Telephone Encounter - Hayden Grimes [facility] - 02/22/2021 3:58 AM EDT Pending Prescriptions: Disp Refills Cyclobenzaprine HCl 10 MG Oral Tablet (Fle*30 Tab 2 Sig: TAKE 1 TABLET ONCE DAILY AT BEDTIME * Telephone Encounter - Hayden Grimes [facility] - 02/22/2021 3:58 AM EDT Pending Prescriptions: Disp Refills Cyclobenzaprine HCl 10 MG Oral Tablet (Fle*30 Tab 2 Sig: TAKE 1 TABLET ONCE DAILY AT BEDTIME Last Office/Telemedicine Visit: 02/15/2021 Next Office Visit: 03/04/2021 Scheduled Provider(s): Maikel Caceres, DO If no future appointments scheduled, and last appointment is greater than a year ago, please schedule patient for a follow-up appointment Last date the medication was ordered: 11/30/20 Pharmacy: [facility] [id number] Is this request for a controlled substance?No Urine Drug Screen:No results found. However, due to the size of the patient record, not all encounters were searched. Please check Results Review for a complete set of results. Patient Phone Numbers Labs: Lab Results Component Value Date/Time CREAT 0.6 02/20/2021 07:14 AM CREAT 0.6 09/24/2020 05:16 PM POTASSIUM 3.7 02/20/2021 07:14 AM POTASSIUM 4.0 09/24/2020 05:16 PM TSH 0.17 (L) 02/04/2021 01:17 AM TSH 0.69 07/14/2020 04:24 PM LDLCALC 43 04/05/2019 06:40 AM LDLDIRECT 46 02/21/2020 11:43 AM ALT 36 (H) 02/18/2021 08:39 AM ALT 23 08/21/2020 04:35 PM HGBA1C 6.9 (H) 11/30/2020 11:32 AM HGBA1C 9.9 (H) 07/06/2020 05:24 AM documented in this encounter Plan of Treatment Upcoming Encounters Date Type Specialty Care Team Description 02/25/2021 Office Visit Family Medicine Joel Jordan MD [address] [place] [address] [phone] 02/26/2021 Immunization/Injection Hematology Oncolog y Nurse, Med 4 [address] [place] [address] [phone] 03/03/2021 Office Visit Cardiology Dominga Arvizu PA-Niya [address] [facility] [place] [address] [phone] 03/03/2021 Nutrition Services Gastroenterology Melissa Omalley, RDN [address] [place] [address] 03/04/2021 Office Visit Family Medicine Maikel Caceres, [address] [place] [address] [phone] 03/04/2021 Home Visit Family Medicine Kaylee Barakat, Community Health Net Finisher [address] [place] [address] [phone] 03/08/2021 Office Visit Pharmacy [facility] [address], [place] [address] 03/16/2021 Office Visit Family Medicine Vanita Dunn MD [address] [place] [facility] [place] [address] [phone] 04/16/2021 Office Visit Podiatry Prakash Martino [place] [address] [place] [address] [phone] 04/29/2021 Appointment Radiology 07/06/2021 Office Visit Hematology Oncology Tono Sanchez MD [address] [place] [address] [phone] 07/27/2021 Office Visit Gastroenterology [facility] [address] [facility] [address] [phone] 09/09/2021 Imaging Radiology Health Maintenance Due Date [...] of this encounter Implants Implanted Type Area Ship Unloader Device Identifier Shelf Expiration Date Model / Serial / Lot Microtech Sure Clip Implanted:Qty: 2 on 06/03/2020 by Janis Hatch DO at OR [facility] Clip N/A: Colon 04/21/2022 [facility]-F-26-2 35-C-R / / [id number] documented as of this encounter Advance Directives Documents on File Type Date Recorded Patient Hub Inventory Specialist 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
--- OUTSIDE RECORDS SUMMARY | 2023-05-10 21:06 | External Medical Summary | Summary of Care ---
Author Name Unknown Organization [facility] Address [place] [address] Care Team Providers Care Packing Line Operator Name Role Phone Alexandra Caceres Primary Care Provider Encounter Details Date Type Department Care Team Description 02/25/2021 Offset Printing PressmenPediatrician [facility] [address] [place] [address] Connie Arguello, UMA [address] [place] [address] Restrictive lung disease* Allergies Active [...] 120 Vial 11 10/02/2019 Active nystatin (NYSTOP) 185277 UNIT/GM powder Apply topically to affected area [...] 60 Each 3 07/27/2020 Active Dexcom G6 Factory Clerk Device Use as directed. To test [...] Strip 3 10/29/2020 Active OneTouch Delica Plus [id number] TESTING once daily 100 Each 3 10/29/2020 [...] than 7.0% ([facility]) Use to inject insulin four times daily; E11.42 400 Each 3 12/05/2020 Active Fluticasone Propionate 50 MCG/ACT Nasal Suspension (Flonase)Indication s:Sinus congestion USE 2 SPRAYS IN EACH NOSTRIL ONCE DAILY as directed 16 g 5 12/23/2020 Active Additional Information Patient taking differently: 2 [place] Nasal DAILY PRN, Congestion, Informant: Pharmacy, Reported [...] pain 01/24/2012 01/17/2017 Genetic Sleep Disorder Research Other*[id number] 05/13/2011 04/07/2016 Obstructive sleep apnea 01/18/2011 12/27/19 [...] Progress Notes * Connie Arguello RN - 02/25/2021 9:44 AM EDT Case Management Assessment-spoke with patient & her Syed, patient readmitted to [facility] on 02/17/21 with complaints of chest pain, [...] 02/20/21 Is this call for a hospital, [place] [facility] care facility or rehab facility discharge to home? No, follow up S: Reports: Patient denies SOB, has a cough at night, says she is having minimal chest pain LE edema has "gone down" Patient using O2 at 2 liters at night with CPAP Patient has a good appetite, denies urinary complaints, having a few bowel movements a day now thatshe is taking Miralax Patient says she has a little discomfort to her lower abdomen No open areas on her skin Blood sugars running 250-400, higher than normal Confirmed patient has an appointment with Dr. Jordan today [facility] during the call making a nurse visit O: Phone visit for post hospitalization. Medications: akes all medications as prescribed. Does this patient [...] understand some instructions, process some information P: Offset Printing Pressmen Interventions: Encouraged patient/ to call with increased SOB, cough, fever,chills, increased LE/abdominal edema Spoke with Dr. Jordan's nurse, asked her to make him aware of patient's blood sugars Reviewed HF symptom monitoring: -Weigh self daily [...] dosing / purpose Encouraged patient to call case management associate with any questions/concerns at [phone]. Office Hours: Mon- 8-8 pm, Monday 8-5 pm, [facility] weekend clinic hours: Saturdays 8-5, Sundays 8-5 PCP Notified of enrollment in CM/HM program: Yes SNP Member? No Re-evaluation of plan of care and progress towards goals achievement: Plan to call patient next week to reassess and update plan of care, verbalizes understanding and agrees with plan. Connie Arguello, UMA Outpatient Offset Printing Pressmen documented in this encounter Plan of Treatment Upcoming Encounters Date Type Specialty Care Team Description 02/25/2021 Office Visit Family Medicine Joel Jordan MD [address] [place] [address] 02/26/2021 Immunization/Injection Hematology Oncolog y Nurse, Med 4 [address] [place] [address] [phone] 03/03/2021 Office Visit Cardiology Domigna Arvizu PA-C [address] [place] [address] [phone] 03/03/2021 Nutrition Services Gastroenterology Melissa Omalley, SAMANTHA [address] [place] [address] 03/04/2021 Office Visit Family Medicine Alexandra Caceres DO [address] [place] [address] 03/04/2021 Home Visit Family Medicine Kaylee Barakat, Community Health Tube Bender Hand [address] [place] [address] 03/08/2021 Office Visit Pharmacy [facility] [address] [place] [address] [phone] 03/16/2021 Office Visit Family Medicine Vanita Dunn MD [address] [place] [address] [phone] 04/16/2021 Office Visit Podiatry Prakash Martino, [place] [address] [place] [address] [phone] 04/29/2021 Appointment Radiology 07/06/2021 Office Visit Hematology Oncology Tono Sanchez MD [address] [place] [address], [place] [address] [phone] 07/27/2021 Office Visit Gastroenterology Lyssa Stout CRNP [address] [place] [address] [phone] 09/09/2021 Imaging Radiology Health Maintenance Due Date [...] of this encounter Implants Implanted Type Area Stave And Bolt Equalizer Device Identifier Shelf Expiration Date Model / Serial / Lot Microtech Sure Clip Implanted:Qty: 2 on 06/03/2020 by Janis Hatch DO at OR [facility] Clip N/A: Colon 04/21/2022 [facility]-F-26-2 35-C-R / / [id number] documented as of this encounter Visit Diagnoses Diagnosis Restrictive lung disease- Primary Other diseases of lung, not elsewhere classified documented in this encounter Advance Directives Documents on File Type Date Recorded Patient Manufacturing Area Manager 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
--- OUTSIDE RECORDS SUMMARY | 2023-05-10 21:07 | External Medical Summary ---
Author Name Unknown Address Unknown Organization K01:[facility] [address] [place] [address] Laboratory Report Ordering Provider Test Date Status GABRIELE MARC 02/20/2021 07:14:00 Final Observation Date Value Abnormality Reference (Units ) Status WBC, Total 02/20/2021 07:14:00 4.26 4.00-10.8 0 (K/uL) Final RBC 02/20/2021 07:14:00 2.99 Below low normal 3.8 5-5.15 (M/uL) Final Hemoglobin 02/20/2021 07:14:00 9.5 Below low normal 12 .0-15.3 (g/dL) Final HCT 02/20/2021 07:14:00 30.1 Below low normal 36. 0-45.2 (%) Final MCV 02/20/2021 07:14:00 100.7 Above high normal 81 .5-97.5 (fL) Final MCH 02/20/2021 07:14:00 31.8 27.0-34.0 (pg) Final MCHC 02/20/2021 07:14:00 31.6 Below low normal 32. 0-36.0 (g/dL) Final RDW 02/20/2021 07:14:00 21.9 Above high normal 11 .5-15.5 (%) Final MPV 02/20/2021 07:14:00 Final Performing Location [facility] [address] [place] [address]
--- OUTSIDE RECORDS SUMMARY | 2023-05-10 21:07 | External Medical Summary | Summary of Care ---
Author Name Unknown Organization [facility] Address [place] [address] Care Team Providers Care Fire Prevention Officer Name Role Phone Alexandra Caceres DO Primary Care Provider [phone] Reason for Referral * Evaluate & Treat - Unlimited Visits (Within 10 days (routine)) Status Reason Specialty Diagnoses / Procedures Referred By Contact Referred To Contact Authorized Specialty Services Required Cardiovascular Medicine / Cardiology Diagnoses Chest pain, unspecified type Alexandra Caceres DO [address] [place] [address] Question Answer Referral Priority Within 10 days (routine) To which of the following clinics are you referring your patient? [facility] Electronically signed by Alexandra Caceres DO at Reason for Visit * Reason Onset Date Comments Follow Up 02/16/2021 Encounter Details Date Type Department Care Team Description 02/16/2021 Motorboat Mechanic Inboard Telephone [facility] [address] [place] [address] Connie Arguello RN [address] [place] [address] Follow Up Allergies Active Allergy Reactions Severity Noted Date Comments Adhesive Tape Itching 04/29/2020 Penicillins Rash 02/12/2008 Perflutren Protein A Microsph 2019 Definity-lower back pain documented as of this encounter (statuses as of 02/19/2021) Medications Medication Sig Dispensed Refills Start Date [...] 11 10/02/2019 Suspended Additional Information nystatin (NYSTOP) 268892 UNIT/GM powder Apply topically to affected area [...] 1 Kit 0 11/19/2019 Suspended Additional Information potassium chloride ER 10 MEQ TBCRIndications:Hy pokalemia TAKE 1 TABLET BY MOUTH ONCE DAILY WITH FOOD 90 Tab 3 05/25/2020 Suspended Additional Information silver sulfadiazine (SILVADENE) 1 [...] 3 07/27/2020 Suspended Additional Information Dexcom G6 Manager Of Internal Audit Device Use as directed. To test blood [...] 10/29/2020 Suspended Additional Information OneTouch Delica Plus [id number] TESTING once daily 100 Each 3 10/29/2020 [...] Suspended Additional Information Patient taking differently: 2 [place] Nasal DAILY PRN, Congestion, Informant: Pharmacy, Reported [...] 180 Tab 1 12/29/2020 Suspended Additional Information Atorvastatin Calcium 40 MG Oral Tablet (Lipitor)Indicatio ns:Dyslipidemia, goal LDL below 70 TAKE 1 TABLET BY MOUTH AT BEDTIME 90 Tab 1 01/22/2021 Suspended Additional Information Trulicity 4.5 MG/0.5ML Subcutaneous Solution Pen-injector (Dulaglutide) Inject one pen (4.5mg) under the skin once a week 6 mL 3 01/25/2021 Suspended Additional Information Lantus SoloStar 100 UNIT/ML Subcutaneous Solution Pen-injector (Insulin Glargine)Indicatio ns:Type 2 diabetes mellitus with hemoglobin A1c goal of less than 7.0% ([facility]) inject 30 units under skin at bedtime 30 mL 3 01/25/2021 Suspended Additional Information Insulin Aspart 100 UNIT/ML Subcutaneous Solution (NovoLOG) Inject 32 units under the skin before breakfast, 36 units before lunch, and 36 units before supper 105 mL 3 01/25/2021 Suspended Additional Information Furosemide 20 MG Oral Tablet (Lasix)Indications :Localized edema,Venous stasis dermatitis of both lower extremities Take 1 Tab by mouth daily. 90 Tab 3 02/02/2021 Suspended Cinnamon 500 MG Oral Capsule Take 500 [...] 2700 mL 2 02/09/2021 Suspended Additional Information Cephalexin 500 MG Oral CapsuleIndications :Hematuria, unspecified type Take 1 Cap by mouth 2 times a day for 10 days. 20 Cap 0 02/15/2021 Suspended Additional Information Patient not taking. Reported on 02/18/2021 traMADol HCl 50 MG Oral Tablet (Ultram)Indication s:Abdominal pain, left lower quadrant Take 1 Tab by mouth every 6 hours as needed for Pain, Moderate. 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 No 02/04/2021 Are you blind or do you have serious difficulty seeing, even when wearing glasses? No 02/04/2021 Do you have serious difficul ty walking or climbing stairs? 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 02/05/2021 Do you have difficulty dress ing or bathing? 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 02/04/2021 Because of a physical, menta l, or emotional condition, do you have difficulty doing errands alone such as visiting a doctor s office or shopping? (15 years old or older) Yes 02/05/20 Cognitive Status Response Date of Assessm ent Because of a physical, menta l, or emotional condition, do you have serious difficulty concentrating, remembering, or making decisions? (5 years old or older Yes 02/04/2021 documented as of this encounter Miscellaneous Notes * Telephone Encounter - Talita Caballero OSA - 02/19/2021 1:32 PM EDT Unable to LMOM 02/19 RMK * Telephone Encounter - [place]andra Caceres DO - 02/17/2021 12:46 PM EDT Cards referral placed * Telephone Encounter - Connie Arguello RN - 02/16/2021 1:[address] Caceres, I spoke with Shaina today, she says she is having chest pains that come & go-says they are not new for her. Denies increased SOB, says her feet are swollen, she is unable to do daily weights. She was in the hospital recently with CHF-should she get a follow up appointment with cardiology? I toldher if the chest pains continue & she has increased SOB, LE edema that she should report to theER-let me know if you want her set up with cardiology Thanks Connie Arguello, RN documented in this encounter Plan of Treatment Upcoming Encounters Date Type Specialty Care Team Description 02/26/2021 Immunization/Injection Hematology Oncolog y Nurse, Med [address] [place], [place] [address] [phone] 03/03/2021 Nutrition Services Gastroenterology Melissa Omalley, SAMANTHA [address] [place] [address] 03/04/2021 Office Visit Family Medicine Alex[facility] Caceres DO [facility] [address] [phone] 03/08/2021 Office Visit Pharmacy [place], [facility] [address] [facility] [place] [id number] 03/16/2021 Office Visit Family Medicine Vanita Dunn MD [address] [facility] [place] [id number] 04/16/2021 Office Visit Podiatry Prakash Martino, DPM [address] [place] [address] 04/29/2021 Appointment Radiology 07/06/2021 Office Visit Hematology Oncology Tono Sanchez MD [address] [place] [address] [phone] 07/27/2021 Office Visit Gastroenterology Lyssa Stout CRNP [address] [place] [address] [phone] 09/09/2021 Imaging Radiology Scheduled Referrals Name Type Priority Associated Diagnoses Orde r Schedule CARDIOLOGY REFERRAL OP Referral Within 10 days (routine) Chest pain, unspecified type Ordered: 02/17/2021 Health Maintenance Due Date Last Done Comments [...] of this encounter Implants Implanted Type Area Automatic Door Mechanic Device Identifier Shelf Expiration Date Model / Serial / Lot Microtech Sure Clip Implanted:Qty: 2 on 06/03/2020 by Janis Hatch DO at OR [facility] Clip N/A: Colon 04/21/2022 [facility]-F-26-2 35-C-R / / [id number] documented as of this encounter Visit Diagnoses Diagnosis Chest pain, unspecified type- Primary documented in this encounter Advance Directives Documents on File Type Date Recorded Patient Agricultural Sales Representative 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 Inactivated Comments Full Code 02/18/2021 1:08 AM This order reflects the patients wishes [...] Agents on File Name Relationship Healthcare Agent [facility] p Communication Syed Bustos Spouse Emergency Contact
--- OUTSIDE RECORDS SUMMARY | 2023-05-10 21:07 | External Medical Summary ---
Author Name Unknown Address Unknown Organization : Laboratory Report Ordering Provider Test Date Status MERRY OVIEDO 02/20/2021 07:31:22 Final Observation Date Value Abnormality Reference (Units ) Status Glucose Point of Care 02/20/2021 07:31:22 234 Above high normal 70-120 (mg/dL) Final Performing Location
--- OUTSIDE RECORDS SUMMARY | 2023-05-10 21:07 | External Medical Summary ---
Author Name Unknown Address Unknown Organization : Laboratory Report Ordering Provider Test Date Status MERRY OVIEDO 02/20/2021 11:33:53 Final Observation Date Value Abnormality Reference (Units ) Status Glucose Point of Care 02/20/2021 11:33:53 311 Above high normal 70-120 (mg/dL) Final Performing Location
--- OUTSIDE RECORDS SUMMARY | 2023-05-10 21:07 | External Medical Summary ---
Author Name Unknown Address Unknown Organization K01:[facility] [address] [place] [address] Laboratory Report Ordering Provider Test Date Status GIOVANNA MARCCHRISTOPHER 02/20/2021 07:14:00 Final Observation Date Value Abnormality Reference (Units ) Status Magnesium 02/20/2021 07:14:00 1.9 1.5-2.6 (m g/dL) Final Performing Location [facility] - [address] [facility] [address]
--- OUTSIDE RECORDS SUMMARY | 2023-05-10 21:07 | External Medical Summary ---
Author Name Unknown Address Unknown Organization K01:[facility] [place] [address] [place] [address] Laboratory Report Ordering Provider Test Date Status GABRIELE MARC 02/20/2021 07:14:00 Final Observation Date Value Abnormality Reference (Units ) Status BUN 02/20/2021 07:14:00 13 6-20 (mg/dL) Final Creatinine 02/20/2021 07:14:00 0.6 0.5-1.0 (mg/dL) Final Glomerular filtration rate/1.73 sq M.predicted [Volume Rate/Area] in Serum, Plasma or Blood by Creatinine-based formula (CKD-EPI) 02/20/2021 07:14:00 >90.0 >=60.0 (mL/min) Final Performing Location [facility] [place] [address] [place] [address]
--- OUTSIDE RECORDS SUMMARY | 2023-05-10 21:07 | External Medical Summary ---
Author Name Unknown Address Unknown Organization K01:[facility] [address] [place] [address] Laboratory Report Ordering Provider Test Date Status GIOVANNA MARCCHRISTOPHER 02/20/2021 07:14:00 Final Observation Date Value Abnormality Reference (Units ) Status Phosphate 02/20/2021 07:14:00 2.8 2.5-4.8 (m g/dL) Final Performing Location [facility] - [address] [place] [address]
--- OUTSIDE RECORDS SUMMARY | 2023-05-10 21:07 | External Medical Summary ---
Author Name Unknown Address Unknown Organization : Laboratory Report Ordering Provider Test Date Status MERRY OVIEDO 02/19/2021 21:30:40 Final Observation Date Value Abnormality Reference (Units ) Status Glucose Point of Care 02/19/2021 21:30:40 374 Above high normal 70-120 (mg/dL) Final Performing Location
--- OUTSIDE RECORDS SUMMARY | 2023-05-10 21:07 | External Medical Summary | Summary of Care ---
Author Name Unknown Organization [facility] Address [place] [address] Care Team Providers Care Human Resources Generalist Name Role Phone Maikel Caceres DO Primary Care Provider [phone] Reason for Visit * Reason Onset Date Comments Hospital Follow-Up 02/20/2021 Encounter Details Date Type Department Care Team Description 02/20/2021 Telephone [facility] [address] [place] [address] Maikel Caceres DO [address] [place] [address] Hospital Follow-Up Allergies Active Allergy Reactions Severity Noted Date Comments Adhesive Tape Itching 04/29/2020 Penicillins Rash 02/12/2008 Perflutren Protein A Microsph 2019 Definity-lower back pain documented as of this encounter (statuses as of 02/20/2021) Medications Medication Sig Dispensed Refills Start Date End Date Status Atorvastatin Calcium 80 MG Oral Tablet (Lipitor) Take 1 Tab by mouth at bedtime. 30 Tab 0 02/20/2021 Active Aspirin 81 MG Oral Tablet Chewable Take 1 Tab by mouth daily. 30 Tab 0 02/21/2021 Active Isosorbide Mononitrate ER 30 MG Oral Tablet Extended Release 24 Hour (Imdur) Take 1 Tab by mouth daily. 30 Tab 0 02/21/2021 Active CENTRUM SILVER PO TABS Take 1 Tab by mouth daily. 1 Tab 0 05/25/2012 Suspended vitamin c (ASCORBIC ACID) 500 MG Tablet Take 500 mg by mouth daily. 0 Suspended albuterol sulfate (PROVENTIL) (2.5 MG/3ML) 0.083% nebulizer solutionIndication s:Pulmonary vascular congestion Inhale 1 Vial via nebulizer every 6 hours as needed for Wheezing. 120 Vial 11 10/02/2019 Suspended Additional Information nystatin (NYSTOP) 316498 UNIT/GM powder Apply topically to affected area [...] 3 07/27/2020 Suspended Additional Information Dexcom G6 Lathe Spotter Device Use as directed. To test blood [...] 10/29/2020 Suspended Additional Information OneTouch Delica Plus Sufbve90M TESTING once daily 100 Each 3 10/29/2020 [...] Suspended Additional Information Patient taking differently: 2 [place] Nasal DAILY PRN, Congestion, Informant: Pharmacy, Reported [...] ([facility]) inject 30 units under skin at [...] as of this encounter (statuses as of 02/20/2021) Active Problems Problem Noted Date Anginal chest [...] as of this encounter (statuses as of 02/20/2021) Resolved Problems Problem Noted Date Resolved Date [...] pain 01/24/2012 01/17/2017 Genetic Sleep Disorder Research Other*[id number] 05/13/2011 04/07/2016 Obstructive sleep apnea 01/18/2011 12/27/19 [...] as of this encounter (statuses as of 02/20/2021) Immunizations Name Administration Dates Next Due COVID-19 [...] encounter Miscellaneous Notes * Telephone Encounter - Carrie Saini OSA - 02/20/2021 3:50 PM EDT Called, pt not home yet. Will call when home 02/20/21 CRS * Telephone Encounter - Quyen Farias OSA - 02/20/2021 3:21 PM EDT Patient Name: RYLAND SHAW([id number]) Sex: Female : 1955 PCP: MAIKEL CACERES Center: None Level of Service:65786 [place] EMERGENCY DEPT VISIT HIGH SEVERITY&THREAT FUNCJ Types of orders made on 02/20/2021: IP Discharge, IP Post Discharge , Lab, Medications, Point of Care Test ing, Point of Care Testing - Unsolicited Results Order Date:02/20/2021 Ordering User:JACOB SOUSA [[id number]] Attending Provider:Dilip Munguia DO [[id number]] Authorizing Provider: Jacob Sousa DO [[id number]] Department:[address][[id number]] Order Specific Information Order: RETURN APPT [CUSTOM: IP355] Order #: [id number]: 1 Priority: Routine Class: Nursing Unit Department [...] y Nurse, Med [address] [facility], [place] [address] [phone] 03/03/2021 Office Visit Cardiology Dominga Arvizu PA-C [address] [facility] [place] [address] 03/03/2021 Nutrition Services Gastroenterology Melissa Omalley, SAMANTHA [address] [place] [id number] 03/04/2021 Office Visit Family Medicine Maikel Caceres DO [address] [place] [address] [phone] 03/08/2021 Office Visit Pharmacy [place], [facility] [address] [place] [address] [phone] 03/16/2021 Office Visit Family Medicine Vanita Dunn MD [address] [place] [address] [phone] 04/16/2021 Office Visit Podiatry [facility]ash Mart[facility] [address] [place] [address] 04/29/2021 Appointment Radiology 07/06/2021 Office Visit Hematology Oncology Tono Sanchez MD [address] [place] [address] [phone] 07/27/2021 Office Visit Gastroenterology Lyssa Stout CRNP [address] [place] [address] [phone] 09/09/2021 Imaging Radiology Health Maintenance Due Date [...] of this encounter Implants Implanted Type Area Brim Rounder Device Identifier Shelf Expiration Date Model / Serial / Lot Microtech Sure Clip Implanted:Qty: 2 on 06/03/2020 by Janis Hatch DO at OR [facility] Clip N/A: Colon 04/21/2022 [facility]-F-26-2 35-C-R / / [id number] documented as of this encounter Advance Directives Documents on File Type Date Recorded 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
--- OUTSIDE RECORDS SUMMARY | 2023-05-10 21:07 | External Medical Summary ---
Author Name Unknown Address Unknown Organization : Laboratory Report Ordering Provider Test Date Status MERRY OVIEDO 02/19/2021 16:04:08 Final Observation Date Value Abnormality Reference (Units ) Status Glucose Point of Care 02/19/2021 16:04:08 344 Above high normal 70-120 (mg/dL) Final Performing Location
--- OUTSIDE RECORDS SUMMARY | 2023-05-10 21:08 | External Medical Summary ---
Author Name Unknown Address Unknown Organization : Laboratory Report Ordering Provider Test Date Status MERRY OVIEDO 02/19/2021 07:16:58 Final Observation Date Value Abnormality Reference (Units ) Status Glucose Point of Care 02/19/2021 07:16:58 328 Above high normal 70-120 (mg/dL) Final Performing Location
--- OUTSIDE RECORDS SUMMARY | 2023-05-10 21:08 | External Medical Summary | Summary of Care ---
Author Name [place] [address] Care Team Providers Care Director Retail Brand Development Name Role Phone Alexandra Caceres Primary Care Provider [phone] Encounter Details Date Type Department Care Team Description 02/18/2021 Orders Only Hematology/Oncology, [facility] [address] [place] [address] Chaparrita Cifuentes MD [address] [place] [address] Allergies Active Allergy Reactions Severity Noted Date Comments Adhesive Tape Itching 04/29/2020 Penicillins Rash 02/12/2008 Perflutren Protein A Microsph 2019 Definity-lower back pain documented as of this encounter (statuses as of 02/18/2021) Medications Medication Sig Dispensed Refills Start Date [...] 120 Vial 11 10/02/2019 Active nystatin (NYSTOP) 576591 UNIT/GM powder Apply topically to affected area [...] 60 Each 3 07/27/2020 Active Dexcom G6 Automotive Shop Foreman Device Use as directed. To test [...] Strip 3 10/29/2020 Active OneTouch Delica Plus Glmbnb79N TESTING once daily 100 Each 3 10/29/2020 [...] Active Additional Information Patient taking differently: 2 [place] Nasal DAILY PRN, Congestion, Informant: Pharmacy, Reported [...] TWICE DAILY 180 Tab 1 12/29/2020 Active Atorvastatin Calcium 40 MG Oral Tablet (Lipitor)Indication s:Dyslipidemia, goal LDL below 70 TAKE 1 TABLET BY MOUTH AT BEDTIME 90 Tab 1 01/22/2021 Active Trulicity 4.5 MG/0.5ML Subcutaneous Solution Pen-injector [...] every day. 2700 mL 2 02/09/2021 Active Cephalexin 500 MG Oral CapsuleIndications: Hematuria, unspecified type Take 1 Cap by mouth 2 times a day for 10 days. 20 Cap 0 02/15/2021 02/25/2021 Active Additional Information Patient not taking. Reported on 02/18/2021 traMADol HCl 50 MG Oral Tablet (Ultram)Indications :Abdominal pain, left lower quadrant Take 1 Tab by mouth every 6 hours as needed for Pain, Moderate. 30 Tab 0 02/15/2021 Active documented as of this encounter (statuses as of 02/18/2021) Active Problems Problem Noted Date Acute on [...] as of this encounter (statuses as of 02/18/2021) Resolved Problems Problem Noted Date Resolved Date [...] pain 01/24/2012 01/17/2017 Genetic Sleep Disorder Research Other*[id number] 05/13/2011 04/07/2016 Obstructive sleep apnea 01/18/2011 12/27/19 [...] as of this encounter (statuses as of 02/18/2021) Immunizations Name Administration Dates Next Due COVID-19 [...] (15 years old or older) Yes 02/05/20 21 Cognitive Status Response Date of Assessm ent Because of a physical, menta l, or emotional condition, do you have serious difficulty concentrating, remembering, or making decisions? (5 years old or older Yes 02/04/2021 documented as of this encounter Plan of Treatment Upcoming Encounters Date Type Specialty Care Team Description 02/18/2021 Home Visit Family Medicine Kaylee Barakat, [facility] Operator And Tender [address] [place] [address] 02/26/2021 Immunization/Injection Hematology Oncolog y Nurse, Med [facility] [address] [facility] [address] [phone] 03/03/2021 Nutrition Services Gastroenterology Melissa Omalley RDN [address] [facility] [address] [place] [address] 03/04/2021 Office Visit Family Medicine Alexandra Caceres DO [address] [place] [address] [phone] 03/08/2021 Office Visit Pharmacy [facility] [address] [place] [address] [phone] 03/16/2021 Office Visit Family Medicine Vanita Dunn MD [address] [place] [address] [phone] 04/16/2021 Office Visit Podiatry Prakash Martino, DPM [address] [place] [address] 04/29/2021 Appointment Radiology 07/06/2021 Office Visit Hematology Oncology Tono Sanchez MD [address] [place] [address] [phone] 07/27/2021 Office Visit [facility]astroenterology [facility] [address] [facility] [address] [phone] 09/09/2021 Imaging Radiology Health Maintenance Due Date [...] of this encounter Implants Implanted Type Area Mica Washer Gluer Device Identifier Shelf Expiration Date Model / Serial / Lot Microtech Sure Clip Implanted:Qty: 2 on 06/03/2020 by Janis Hatch DO at OR [facility] Clip N/A: Colon 04/21/2022 [facility]-F-26-2 35-C-R / / [id number] documented as of this encounter Advance Directives Documents on File Type Date Recorded Patient Multi Spindle Operator 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
--- OUTSIDE RECORDS SUMMARY | 2023-05-10 21:08 | External Medical Summary ---
Author Name Unknown Address Unknown Organization : Laboratory Report Ordering Provider Test Date Status MERRY OVIEDO 02/18/2021 21:58:42 Final Observation Date Value Abnormality Reference (Units ) Status Glucose Point of Care 02/18/2021 21:58:42 296 Above high normal 70-120 (mg/dL) Final Performing Location
--- OUTSIDE RECORDS SUMMARY | 2023-05-10 21:08 | External Medical Summary ---
Author Name Unknown Address Unknown Organization K01:[facility] - [address] [place] [address] Laboratory Report Ordering Provider Test Date Status GABRIELE MARC 02/19/2021 09:33:00 Final Observation Date Value Abnormality Reference (Units ) Status Phosphate 02/19/2021 09:33:00 3.1 2.5-4.8 (m g/dL) Final Performing Location [facility] - [address] [place] [address]
--- OUTSIDE RECORDS SUMMARY | 2023-05-10 21:08 | External Medical Summary ---
Author Name Unknown Address Unknown Organization K01:[facility] - [address] [place] [address] Laboratory Report Ordering Provider Test Date Status GIOVANNA MARCCHRISTOPHER 02/19/2021 09:33:00 Final Observation Date Value Abnormality Reference (Units ) Status Magnesium 02/19/2021 09:33:00 1.9 1.5-2.6 (m g/dL) Final Performing Location [facility] - [address] [place] [address]
--- OUTSIDE RECORDS SUMMARY | 2023-05-10 21:08 | External Medical Summary ---
Author Name Unknown Address Unknown Organization : Laboratory Report Ordering Provider Test Date Status MERRY OVIEDO 02/18/2021 17:01:43 Final Observation Date Value Abnormality Reference (Units ) Status Glucose Point of Care 02/18/2021 17:01:43 369 Above high normal 70-120 (mg/dL) Final Performing Location
--- OUTSIDE RECORDS SUMMARY | 2023-05-10 21:08 | External Medical Summary ---
Author Name Unknown Address Unknown Organization : Laboratory Report Ordering Provider Test Date Status MERRY OVIEDO 02/18/2021 13:32:18 Final Observation Date Value Abnormality Reference (Units ) Status Glucose Point of Care 02/18/2021 13:32:18 314 Above high normal 70-120 (mg/dL) Final Performing Location
--- OUTSIDE RECORDS SUMMARY | 2023-05-10 21:08 | External Medical Summary ---
Author Name Unknown Address Unknown Organization [id number]:[facility] [place] [address] [place] [address] Laboratory Report Ordering Provider Test Date Status GABRIELE MARC 02/19/2021 09:33:00 Final Observation Date Value Abnormality Reference (Units ) Status WBC, Total 02/19/2021 09:33:00 3.81 Below low normal 4. 00-10.80 (K/uL) Final RBC 02/19/2021 09:33:00 3.47 Below low normal 3.8 5-5.15 (M/uL) Final Hemoglobin 02/19/2021 09:33:00 11.1 Below low normal 12 .0-15.3 (g/dL) Final HCT 02/19/2021 09:33:00 36.2 36.0-45.2 (%) Final MCV 02/19/2021 09:33:00 104.3 Above high normal 81 .5-97.5 (fL) Final MCH 02/19/2021 09:33:00 32.0 27.0-34.0 (pg) Final MCHC 02/19/2021 09:33:00 30.7 Below low normal 32. 0-36.0 (g/dL) Final RDW 02/19/2021 09:33:00 22.4 Above high normal 11 .5-15.5 (%) Final MPV 02/19/2021 09:33:00 Final Performing Location [facility] [place] [address] [place] [address]
--- OUTSIDE RECORDS SUMMARY | 2023-05-10 21:08 | External Medical Summary ---
Author Name Unknown Address Unknown Organization : Laboratory Report Ordering Provider Test Date Status MERRY OVIEDO 02/19/2021 11:13:41 Final Observation Date Value Abnormality Reference (Units ) Status Glucose Point of Care 02/19/2021 11:13:41 293 Above high normal 70-120 (mg/dL) Final Performing Location
--- OUTSIDE RECORDS SUMMARY | 2023-05-10 21:08 | External Medical Summary ---
Author Name Unknown Address Unknown Organization [id number]:[facility]ATORY [facility] [place] - [address] [place] [address] Laboratory Report Ordering Provider Test Date Status GABRIELE MARC 02/19/2021 09:33:00 Final Observation Date Value Abnormality Reference (Units ) Status BUN 02/19/2021 09:33:00 13 6-20 (mg/dL) Final Creatinine 02/19/2021 09:33:00 0.6 0.5-1.0 (mg/dL) Final Glomerular filtration rate/1.73 sq M.predicted [Volume Rate/Area] in Serum, Plasma or Blood by Creatinine-based formula (CKD-EPI) 02/19/2021 09:33:00 >90.0 >=60.0 (mL/min) Final Performing Location LAB[facility]ORY [facility] [place] - [address] [place] [address]
--- OUTSIDE RECORDS SUMMARY | 2023-05-10 21:09 | External Medical Summary | Summary of Care ---
Author Name Unknown Organization [facility] Address [place] [address] Care Team Providers Care High Climber Name Role Phone Alexandra Caceres DO Primary Care Provider [phone] Reason for Referral * Evaluate & Treat - Unlimited Visits (Within 10 days (routine)) Status Reason Specialty Diagnoses / Procedures Referred By Contact Referred To Contact Authorized Specialty Services Required Cardiovascular Medicine / Cardiology Diagnoses Chest pain, unspecified type Alexandra Caceres DO [address] [place] [address] Question Answer Referral Priority Within 10 days (routine) To which of the following clinics are you referring your patient? 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 To test blood [...] TO ACCESSING. 30 g 3 10/09/2020 Active [employer]Wall MediaTouch Verio In Vitro Strip (Glucose Blood) TESTING once daily 100 Strip 3 10/29/2020 Active [employer]Wall [employer]Touch Delica Plus [id number] TESTING once daily 100 Each 3 10/29/2020 [...] Active Additional Information Patient taking differently: 2 [place] Nasal DAILY PRN, Congestion, Informant: Pharmacy, Reported [...] goal of less than 7.0% ([facility]) inject 30 units under skin [...] days. 20 Cap 0 02/15/2021 02/25/2021 Active traMADol HCl 50 MG Oral Tablet (Ultram)Indications :Abdominal pain, left lower quadrant Take 1 Tab by mouth every 6 hours as needed for Pain, Moderate. 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 05/13/2011 04/07/2016 Obstructive sleep apnea 01/18/2011 12/27/19 [...] as of this encounter (statuses as of 02/17/2021) Immunizations Name Administration Dates Next Due COVID-19 [...] encounter Miscellaneous Notes * Telephone Encounter - Alexandra Caceres DO [...] Visit Family Medicine Kaylee Barakat, [facility] Asst [address] [place] [address] 02/26/2021 Immunization/Injection Hematology Oncolog y Nurse, Med [address] [place] [address] [phone] 03/03/2021 Nutrition Services Gastroenterology Melissa Omalley, SAMANTHA [address] [place], [place] [id number] 03/04/2021 Office Visit Family Medicine Alexandra Caceres DO [address] [place] [address] 03/08/2021 Office Visit Pharmacy [facility] [address] [place] [address] 03/16/2021 Office Visit Family Medicine Vanita Dunn MD [address] [place] [address] 04/16/2021 Office Visit Podiatry Prakash Martino DPM [address] [place] [address] [phone] 04/29/2021 Appointment Radiology 07/06/2021 Office Visit Hematology Oncology Tono Sanchez MD [address] [place] [address] [phone] 07/27/2021 Office Visit Gastroenterology Lyssa Stout CRNP [address] [facility] [place] [address] [phone] 09/09/2021 Imaging Radiology Scheduled Referrals Name Type [...] of this encounter Implants Implanted Type Area Recovery Collector Device Identifier Shelf Expiration Date Model / Serial / Lot Micro[employer] Sure Clip Implanted:Qty: 2 on 06/03/2020 by Janis Hatch DO at OR [facility] Clip N/A: Colon 04/21/2022 [facility]-F-26-2 35-C-R / / [id number] documented as of this encounter Visit Diagnoses Diagnosis Chest pain, unspecified type- Primary documented in this encounter Advance Directives Documents on File Type Date Recorded 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 Healthcare Agents on File Name Relationship Healthcare Agent [facility] p Communication Syed Bustos Spouse Emergency Contact
--- OUTSIDE RECORDS SUMMARY | 2023-05-10 21:09 | External Medical Summary ---
Author Name Unknown Address Unknown Organization : Laboratory Report Ordering Provider Test Date Status GENARO LANGLEY 02/18/2021 02:22:59 Final Observation Date Value Abnormality Reference (Units ) Status Glucose Point of Care 02/18/2021 02:22:59 203 Above high normal 70-120 (mg/dL) Final Performing Location
--- OUTSIDE RECORDS SUMMARY | 2023-05-10 21:09 | External Medical Summary ---
Author Name Unknown Address Unknown Organization K01:[facility] [place] [address] [place] [address] Laboratory Report Ordering Provider Test Date Status RHETT SALOMON 02/17/2021 21:23:00 Final Observation Date Value Abnormality Reference (Units ) Status BNP, Pro-hormone 02/17/2021 21:23:00 74 <30 0 (pg/mL) Final Performing Location [facility] - [address] [place] [address]
--- OUTSIDE RECORDS SUMMARY | 2023-05-10 21:09 | External Medical Summary ---
Author Name Unknown Address Unknown Organization K01:[facility] [place] [address] [place] [address] Laboratory Report Ordering Provider Test Date Status RHETT SALOMON 02/17/2021 21:23:00 Final Observation Date Value Abnormality Reference (Units ) Status WBC, Total 02/17/2021 21:23:00 3.96 Below low normal 4. 00-10.80 (K/uL) Final RBC 02/17/2021 21:23:00 3.32 Below low normal 3.8 5-5.15 (M/uL) Final Hemoglobin 02/17/2021 21:23:00 10.7 Below low normal 12 .0-15.3 (g/dL) Final HCT 02/17/2021 21:23:00 34.8 Below low normal 36. 0-45.2 (%) Final MCV 02/17/2021 21:23:00 104.8 Above high normal 81 .5-97.5 (fL) Final MCH 02/17/2021 21:23:00 32.2 27.0-34.0 (pg) Final MCHC 02/17/2021 21:23:00 30.7 Below low normal 32. 0-36.0 (g/dL) Final RDW 02/17/2021 21:23:00 22.7 Above high normal 11 .5-15.5 (%) Final MPV 02/17/2021 21:23:00 Final Performing Location [facility] [place] [address] [place] [address]
--- OUTSIDE RECORDS SUMMARY | 2023-05-10 21:09 | External Medical Summary ---
Author Name Unknown Address Unknown Organization K01:[facility] [place] [facility] [address] [place] [address] Laboratory Report Ordering Provider Test Date Status MERRY OVIEDO 02/18/2021 08:39:00 Final Observation Date Value Abnormality Reference (Units ) Status Body temperature 02/18/2021 08:39:00 37.0 (C) Final pH of Venous blood 02/18/2021 08:39:00 7.438 Above high normal 7.320-7.430 (units) Final Carbon dioxide [Partial pressure] in Venous blood 02/18/2021 08:39:00 49.6 40.0-60.0 (mmHg) Final Oxygen [Partial pressure] in Venous blood 02/18/2021 08:39:00 50.0 25.0-50.0 (mmHg) Final Bicarbonate, Venous 02/18/2021 08:39:00 33.0 Above high normal 23.0-31.0 (mmol/L) Final Base excess, Capillary 02/18/2021 08:39:00 8.0 Above high normal -2.0-2.0 (mmol/L) Final Hemoglobin [Mass/volume] in Blood by Oximetry 02/18/2021 08:39:00 11.3 Below low normal 12.0-15.3 (g/dL) Final Oxyhemoglobin, Venous (FO2HB) 02/18/2021 08:39:00 80.6 40.0-85.0 (% total Hgb) Final Carboxyhemoglobin 02/18/2021 08:39:00 1.5 <=1.5 (% total Hgb) Final Performing Location [facility] [place] [address] [place] [address]
--- OUTSIDE RECORDS SUMMARY | 2023-05-10 21:09 | External Medical Summary ---
Author Name Unknown Address Unknown Organization K01:[facility] [place] [address] [place] [address] Laboratory Report Ordering Provider Test Date Status RHETT SALOMON 02/17/2021 21:23:00 Final Observation Date Value Abnormality Reference (Units ) Status Troponin T 02/17/2021 21:23:00 8 <=14 (ng/ L) Final Performing Location LABORATORY [facility] - [address] [place] [address]
--- OUTSIDE RECORDS SUMMARY | 2023-05-10 21:09 | External Medical Summary ---
Author Name Unknown Address Unknown Organization K01:[facility] [place] [address] [place] [address] Laboratory Report Ordering Provider Test Date Status IVELISSEAMARIS COXMA 02/18/2021 08:39:00 Final Observation Date Value Abnormality Reference (Units ) Status BUN 02/18/2021 08:39:00 11 6-20 (mg/dL) Final Creatinine 02/18/2021 08:39:00 0.6 0.5-1.0 (mg/dL) Final Glomerular filtration rate/1.73 sq M.predicted [Volume Rate/Area] in Serum, Plasma or Blood by Creatinine-based formula (CKD-EPI) 02/18/2021 08:39:00 >90.0 >=60.0 (mL/min) Final Performing Location [facility] [place] [address] [place] [address]
--- OUTSIDE RECORDS SUMMARY | 2023-05-10 21:09 | External Medical Summary ---
Author Name Unknown Address Unknown Organization K01:[facility] - [address] [place] [address] Laboratory Report Ordering Provider Test Date Status IVELISSESOUSA 02/18/2021 08:39:00 Final Observation Date Value Abnormality Reference (Units ) Status Ammonia 02/18/2021 08:39:00 66 Above high normal 11 -35 (umol/L) Final Performing Location [facility] - [address] [place] [address]
--- OUTSIDE RECORDS SUMMARY | 2023-05-10 21:09 | External Medical Summary ---
Author Name Unknown Address Unknown Organization K01:[place] [facility] [place] [address] [place] [address] Laboratory Report Ordering Provider Test Date Status GRACE DEVLIN 02/17/2021 22:35:00 Final Observation Date Value Abnormality Reference (Units ) Status Troponin T 02/17/2021 22:35:00 7 <=14 (ng/ L) Final Performing Location [facility] [place] [address] [facility] [address]
--- OUTSIDE RECORDS SUMMARY | 2023-05-10 21:09 | External Medical Summary ---
Author Name Unknown Address Unknown Organization : Laboratory Report Ordering Provider Test Date Status MERRY OVIEDO 02/18/2021 08:48:42 Final Observation Date Value Abnormality Reference (Units ) Status Glucose Point of Care 02/18/2021 08:48:42 223 Above high normal 70-120 (mg/dL) Final Performing Location
--- OUTSIDE RECORDS SUMMARY | 2023-05-10 21:09 | External Medical Summary ---
Author Name Unknown Address Unknown Organization K01:[place] [facility] [place] [address] [facility] [address] Laboratory Report Ordering Provider Test Date Status IVELISSEMERRY COX 02/18/2021 08:39:00 Final Observation Date Value Abnormality Reference (Units ) Status Lactic Acid 02/18/2021 08:39:00 1.5 0.4-2.0 (mmol/L) Final Performing Location [facility] - [address] [facility] [address]
--- OUTSIDE RECORDS SUMMARY | 2023-05-10 21:09 | External Medical Summary ---
Author Name Unknown Address Unknown Organization K01:[facility]ORY [facility] [place] - [address] [place] [address] Laboratory Report Ordering Provider Test Date Status RHETT SALOMON 02/17/2021 21:23:00 Final Observation Date Value Abnormality Reference (Units ) Status BUN 02/17/2021 21:23:00 11 6-20 (mg/dL) Final Creatinine 02/17/2021 21:23:00 0.6 0.5-1.0 (mg/dL) Final Glomerular filtration rate/1.73 sq M.predicted [Volume Rate/Area] in Serum, Plasma or Blood by Creatinine-based formula (CKD-EPI) 02/17/2021 21:23:00 >90.0 >=60.0 (mL/min) Final Performing Location LAB[facility]ORY [facility] [place] - [address] [place] [address]
--- OUTSIDE RECORDS SUMMARY | 2023-05-10 21:09 | External Medical Summary ---
Author Name Unknown Address Unknown Organization K01:[facility]ORY [facility] [place] - [facility] [address] [place] [address] Laboratory Report Ordering Provider Test Date Status MERRY OVIEDO 02/18/2021 08:39:00 Final Observation Date Value Abnormality Reference (Units ) Status WBC, Total 02/18/2021 08:39:00 3.81 Below low normal 4. 00-10.80 (K/uL) Final RBC 02/18/2021 08:39:00 3.45 Below low normal 3.8 5-5.15 (M/uL) Final Hemoglobin 02/18/2021 08:39:00 11.1 Below low normal 12 .0-15.3 (g/dL) Final HCT 02/18/2021 08:39:00 34.9 Below low normal 36. 0-45.2 (%) Final MCV 02/18/2021 08:39:00 101.2 Above high normal 81 .5-97.5 (fL) Final MCH 02/18/2021 08:39:00 32.2 27.0-34.0 (pg) Final MCHC 02/18/2021 08:39:00 31.8 Below low normal 32. 0-36.0 (g/dL) Final RDW 02/18/2021 08:39:00 22.3 Above high normal 11 .5-15.5 (%) Final MPV 02/18/2021 08:39:00 Final Performing Location LAB[facility]ATORY [facility] [place] - [address] [place] [address]
--- OUTSIDE RECORDS SUMMARY | 2023-05-10 21:09 | External Medical Summary ---
Author Name Unknown Address Unknown Organization K01:LAB[facility]ORY [facility] [place] - [address] [place] [address] Laboratory Report Ordering Provider Test Date Status RHETT SALOMON 02/17/2021 21:23:00 Final Observation Date Value Abnormality Reference (Units ) Status SYNC LEUKOCYTES IN BLOOD BY AUTOMATED COUNT 02/17/2021 21:23:00 3.96 Below low normal 4.00-10.80 (K/uL) Final Segs 02/17/2021 21:23:00 48.9 40.0-75.0 (%) Final Lymphs % 02/17/2021 21:23:00 28.3 18.0-42.0 (%) Final Monos 02/17/2021 21:23:00 12.1 Above high normal 1.0-11.0 (%) Final Eosinophils 02/17/2021 21:23:00 9.6 Above high normal 0.0-6.0 (%) Final Basos 02/17/2021 21:23:00 0.8 0.0-2.0 (%) Final Immature Granulocyte, Percent 02/17/2021 21:23:00 0.3 0.0-2.0 (%) Final Absolute Segs 02/17/2021 21:23:00 1.94 1.80-7.70 (K/uL) Final Lymphs, absolute 02/17/2021 21:23:00 1.12 1.00-4.80 (K/ul) Final Monos, Abs 02/17/2021 21:23:00 0.48 0.00-1.10 (K/uL) Final Eos, Abs 02/17/2021 21:23:00 0.38 0.00-0.70 (K/uL) Final Basos, Abs 02/17/2021 21:23:00 0.03 0.00-0.20 (K/uL) Final Immature Granulocytes, Number 02/17/2021 21:23:00 0.01 0.00-0.20 (K/uL) Final Performing Location [facility] [place] - [facility][note 3] [place] [address]
--- OUTSIDE RECORDS SUMMARY | 2023-05-10 21:10 | External Medical Summary | Summary of Care ---
Author Name Unknown Organization [facility] Address [place] [address] Care Team Providers Care Sales Secretary Name Role Phone Alexandra Caceres DO Primary Care Provider [phone] Reason for Referral * Evaluate & Treat - Unlimited Visits (Within 10 days (routine)) Status Reason Specialty Diagnoses / Procedures Referred By Contact Referred To Contact Authorized Specialty Services Required Cardiovascular Medicine / Cardiology Diagnoses Chest pain, unspecified type Alexandra Caceres DO [address] [place] [address] Question Answer Referral Priority Within 10 days (routine) To which of the following clinics are you referring your patient? [facility]iology Clinic Electronically signed by Alexandra Caceres DO at Reason for Visit * Reason Onset Date Comments Follow Up 02/16/2021 Encounter Details Date Type Department Care Team Description 02/16/2021 Speech Language Pathology Assistant Telephone [facility] [address] [place] [address] Connie Arguello RN [address] [place] [address] Follow Up Allergies Active Allergy [...] 120 Vial 11 10/02/2019 Active nystatin (NYSTOP) 998830 UNIT/GM powder Apply topically to affected area [...] 60 Each 3 07/27/2020 Active Dexcom G6 Health Education Aide Device Use as directed. To test [...] TO ACCESSING. 30 g 3 10/09/2020 Active Host AnalyticsTouch Verio In Vitro Strip (Glucose Blood) TESTING once daily 100 Strip 3 10/29/2020 Active Host AnalyticsTouch Delica Plus [id number] TESTING once daily 100 Each 3 10/29/2020 [...] Active Additional Information Patient taking differently: 2 [place] Nasal DAILY PRN, Congestion, Informant: Pharmacy, Reported [...] less than 7.0% ([facility]) inject 30 units under skin [...] pain 01/24/2012 01/17/2017 Genetic Sleep Disorder Research Other*[id number] 05/13/2011 04/07/2016 Obstructive sleep apnea 01/18/2011 12/27/19 [...] Visit Family Medicine Kaylee Barakat, [facility] Staff Pharmacist [address] [place] [address] 02/26/2021 Immunization/Injection Hematology Oncolog y Nurse, Med [address] [place] [address] [phone] 03/03/2021 Nutrition Services Gastroenterology Melissa Omalley, SAMANTHA [address] [place], [place] [phone] 03/04/2021 Office Visit Family Medicine Alexandra Caceres DO [address] [place] [address] 03/08/2021 Office Visit Pharmacy [facility] [address] [place] [address] 03/16/2021 Office Visit Family Medicine Vanita Dunn MD [address] [place] [address] 04/16/2021 Office Visit Podiatry Prakash Martino DPM [address] [place] [address] [phone] 04/29/2021 Appointment Radiology 07/06/2021 Office Visit Hematology Oncology Tono Sanchez MD [address] [place] [address] [phone] 07/27/2021 Office Visit Gastroenterology Lyssa Stout CRNP [address] [facility] [place] [address] [phone] 09/09/2021 Imaging Radiology Scheduled Referrals Name Type [...] of this encounter Implants Implanted Type Area Entrepreneurial Finance Professor Device Identifier Shelf Expiration Date Model / Serial / Lot Micro[employer] Sure Clip Implanted:Qty: 2 on 06/03/2020 by Janis Hatch DO at OR [facility] Clip N/A: Colon 04/21/2022 [facility]-F-26-2 35-C-R / / [id number] documented as of this encounter Visit Diagnoses Diagnosis Chest pain, unspecified type- Primary documented in this encounter Advance Directives Documents on File Type Date Recorded 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
--- OUTSIDE RECORDS SUMMARY | 2023-05-10 21:10 | External Medical Summary | Summary of Care ---
Author Name Unknown Organization [facility] Address [place] [address] Care Team Providers Care Tin Pot Operator Name Role Phone Alexandra Caceres Primary Care Provider Encounter Details Date Type Department Care Team Description 02/16/2021 Engineering LecturerLive Truck [facility]Tri[facility] [address] [place] [address] Connie Arguello, UMA [address] [place] [address] Restrictive lung disease* Allergies Active Allergy Reactions Severity Noted Date Comments Adhesive Tape Itching 04/29/2020 Penicillins Rash 02/12/2008 Perflutren Protein A Microsph 2019 Definity-lower back pain documented as of this encounter (statuses as of 02/16/2021) Medications Medication Sig Dispensed Refills Start Date [...] 120 Vial 11 10/02/2019 Active nystatin (NYSTOP) 662499 UNIT/GM powder Apply topically to affected area [...] 60 Each 3 07/27/2020 Active Dexcom G6 Scrap Metal Burner Device Use as directed. To test blood [...] Strip 3 10/29/2020 Active OneTouch Delica Plus [id number] TESTING once daily 100 Each 3 10/29/2020 [...] less than 7.0% ([facility]) Use to inject insulin four times daily; E11.42 400 Each 3 12/05/2020 Active Fluticasone Propionate 50 MCG/ACT Nasal Suspension (Flonase)Indication s:Sinus congestion USE 2 SPRAYS IN EACH NOSTRIL ONCE DAILY as directed 16 g 5 12/23/2020 Active Additional Information Patient taking differently: 2 [place] Nasal DAILY PRN, Congestion, Informant: Pharmacy, Reported [...] as of this encounter (statuses as of 02/16/2021) Active Problems Problem Noted Date Melena 02/15/2021 [...] as of this encounter (statuses as of 02/16/2021) Resolved Problems Problem Noted Date Resolved Date [...] pain 01/24/2012 01/17/2017 Genetic Sleep Disorder Research Other*[id number] 05/13/2011 04/07/2016 Obstructive sleep apnea 01/18/2011 12/27/19 [...] as of this encounter (statuses as of 02/16/2021) Immunizations Name Administration Dates Next Due COVID-19 [...] Yes 02/04/2021 documented as of this encounter Progress Notes * Connie Arguello, UMA - 02/16/2021 1:19 PM EDT Case Management Assessment, spoke with patient, Annual assessment completed, s/p hospitalization [facility] on 01/30/21, treated for CHF, discharged home on 02/02/21, patient returned to the ER at [facility] on 02/03/21, treated for confusion, discharged home on 02/06/21, returned to [facility] ER on 02/09/21 due to constipation, treated with a Lactulose enema, discharged home later that day HX: 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 Is this call for a hospital, half-way or rehab facility discharge to home? No, follow up S: Reports: Patient denies SOB, says she has a cough when she lies flat Says she has had some chest pain that comes & goes, says she has some last night Feet have been swollen, patient unable to get on a scale Patient using CPAP at night with 2 liters O2 Has a good appetite, says it olvera some when she urinates, was started on an antibiotic for UTI when seen by Dr. Dunn yesterday Patient says she had a BM yesterday, has not had one today yet No skin issues per patient, sleeping okay at night Blood sugars have been in the 200's Patient remains non-ambulatory, caregivers/ use a candace lift to transfer patient Patient confirms that [facility] is currently following the patient Patient noted to not have any follow up scheduled with cardiology, message sent to PCP to make her aware O: Phone visit for post hospital discharge. Medications: taking as prescribed as per recent PCP visit Does this patient qualify for an annual wellness visit? No A: Patient Centered Prioritized Goals: prevent exacerbation of CHF, take medicatoins as prescribed, stay safe in her home, prevent readmission/ER visits Co-morbid conditions identified and managed. Patient/ [...] Cooking food, Routine Housework, Using telephone, Taking medications and Attending to safety Cognitive and Mental Health: alert and oriented x 3 and able to communicate, understand some instructions, process some information P: Engineering Lecturer Interventions: Encouraged patient to call with increased SOB, cough, fever, chills,increased LE/abdominal edema Angina Action Plan: Discussed with patient the following symptoms of Angina (Chest Pain): Chest discomfort - uncomfortable pressure, squeezing, fullness or pain. Shortness of breath. Discomfort in other parts of the body - one or both arms, back, neck, jaw or stomach. Other signs that may occur with or without chest discomfort - breaking out in cold sweat, nausea, or light headedness. Managing Angina (chest pain) Stop any activity and rest until chest pain is gone. Always carry your medication with you. Check your nitro periodically for the expiration date and replace every 6 months after opening. Protect nitro from light and extreme heat or cold exposure. See your health care provider if the angina becomes worse or occurs more often. Call 911 if the following occurs: If you are having chest discomfort with lightheadedness, sweating or if you are having difficulty breathing during an angina attack. If chest discomfort lasts more than 10 minutes, goes away and comes back, or if you still have discomfort after 3 nitroglycerin tablets taken 5 minutes apart. Reviewed HF symptom monitoring: -Weigh self daily [...] if at night -increased fatigue or vertigo Encouraged patient to: Raise your legs above your heart while lying down. Exercise your legs. This helps pump fluid from your legs back to your heart. Follow a low-salt diet, which may reduce fluid buildup and swelling. Reinforced sodium restriction Reinforced CHO consistency Reinforced safety education / fall prevention Reinforced medication regimen - timing / dosing / purpose Encouraged patient to change positions frequently to prevent skin breakdown Take medications as prescribed Discussed the importance of safety precautions Keep f/u appointments PCP follow up appointment Advised to call office for any change in health status or questions concerning care Encouraged patient to call outsole caser with any questions/concerns at [phone]. Office Hours: Mon- 8-8 pm, Monday 8-5 pm, [facility] weekend clinic hours: Saturdays 8-5, Sundays 8-5 PCP Notified of enrollment in CM/HM program: Yes SNP Member? No Re-evaluation of plan of care and progress towards goals achievement: Plan to call patient at the end of the week to reassess and update plan of care, verbalizes understanding and agrees with plan. Connie Arguello RN Outpatient Engineering Lecturer documented in this encounter Plan of Treatment Upcoming Encounters Date Type Specialty Care Team Description 02/18/2021 Home Visit Family Medicine Kaylee Barakat, Community Health Waste Collector [address] [place] [address] [phone] 02/26/2021 Immunization/Injection Hematology Oncolog y Nurse, Med [address] [place] [address] [phone] 03/03/2021 Nutrition Services Gastroenterology Melissa Omalley, RDN [address] [place] [address] [phone] 03/04/2021 Office Visit Family Medicine Alexandra Caceres DO [address] [place] [address] [phone] 03/08/2021 Office Visit Pharmacy [facility] [address], [place] [id number] 03/16/2021 Office Visit Family Medicine Vanita Dunn MD [address], [place] [id number] 04/16/2021 Office Visit Podiatry Prakash Martino DPM [address] [place] [address] 04/29/2021 Appointment Radiology 07/06/2021 Office Visit Hematology Oncology Tono Sanchez MD [address] [place] [address] [phone] 07/27/2021 Office Visit Gastroenterology Lyssa Stout CRNP [address] [facility] [place] [address] [phone] 09/09/2021 Imaging Radiology Health Maintenance Due Date [...] encounter Implants Implanted Type Area Director Of Pharmacy Device Identifier Shelf Expiration Date Model / Serial / Lot Microtech Sure Clip Implanted:Qty: 2 on 06/03/2020 by Janis Hatch DO at OR [facility] Clip N/A: Colon 04/21/2022 [id number]-F-[id number] 35-C-R / / [id number] documented as of this encounter Visit Diagnoses Diagnosis Restrictive lung disease- Primary Other diseases of lung, not elsewhere classified documented in this encounter Advance Directives Documents on File Type Date Recorded 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
--- OUTSIDE RECORDS SUMMARY | 2023-05-10 21:10 | External Medical Summary | Summary of Care ---
Author Name Unknown Organization [place] [address] Care Team Providers Care Healthcare Economics Manager Name Role Phone Alexandra Caceres Primary Care Provider [phone] Reason for Visit * Reason Onset Date Comments COVID-19 Screening 02/14/2021 Encounter Details Date Type Department Care Team Description 02/14/2021 Telephone COVID19 Screening [facility] [address] [place] [id number], Automated Provider COVID-19 Screening Allergies Active Allergy Reactions Severity Noted Date Comments Adhesive Tape Itching 04/29/2020 Penicillins Rash 02/12/2008 Perflutren Protein A Microsph 2019 Definity-lower back pain documented as of this encounter (statuses as of 02/14/2021) Medications Medication Sig Dispensed Refills Start Date [...] 120 Vial 11 10/02/2019 Active nystatin (NYSTOP) 291611 UNIT/GM powder Apply topically to affected area [...] 60 Each 3 07/27/2020 Active Dexcom G6 Clinical Implementation Specialist Device Use as directed. To test [...] Strip 3 10/29/2020 Active OneTouch Delica Plus [id number] TESTING once daily 100 Each 3 10/29/2020 [...] Active Additional Information Patient taking differently: 2 [place] Nasal DAILY PRN, Congestion, Informant: Pharmacy, Reported [...] 500 mg by mouth daily. 0 Active Acetaminophen 325 MG Oral Tablet (Tylenol) Take 650 mg by mouth every 6 hours as needed for Fever >38C(100.5F) or Pain, Mild. 0 Active rifAXIMin 550 MG Oral Tablet (Xifaxan) Take 1 Tab by mouth 2 times a day for 30 days. 60 Tab 0 02/06/2021 03/08/2021 Active Lactulose 20 GM/30ML Oral Solution (Constulose) Take 67.5 mL by mouth 3 times a day. Titrate to have 3 to 4 bowel movement every day. 2700 mL 2 02/09/2021 Active documented as of this encounter (statuses as of 02/14/2021) Active Problems Problem Noted Date Cardiomegaly 01/30/2021 SOB (shortness of breath) 01/30/2021 [...] as of this encounter (statuses as of 02/14/2021) Resolved Problems Problem Noted Date Resolved Date [...] MEDICATION USE AGREEMENT 03/27/2012 017 Overview: 03/27/12 UTI (urinary tract infection) 01/27/2012 Sleep disturbance 01/24/2012 07/02/2014 Malaise and fatigue 01/24/2012 06/07/2016 Myalgia and myositis 01/24/2012 06/07/2016 Urinary frequency 01/24/2012 07/02/2014 Urgency of urination 01/24/2012 06/07/2016 Kidney disease, chronic, stage III (GFR 30-59 ml /min) 01/24/2012 03/27/2012 Chronic pain 01/24/2012 01/17/2017 Genetic Sleep Disorder Research Other*[id number] 05/13/2011 04/07/2016 Obstructive sleep apnea 01/18/2011 12/27/19 [...] as of this encounter (statuses as of 02/14/2021) Immunizations Name Administration Dates Next Due COVID-19 [...] Miscellaneous Notes * Telephone Encounter - Yaneth Poon Results - 02/14/2021 10:13 PM EDT Outreach Attempts IVR Call Feb 14 2021 9:17AM Answered - Success Results COVID: Negative IVR Message: Cecy Merritt. Your COVID-19 from 02/09/2021 00:00:00 results are negative. This means you are NOT infected with coronavirus 19. If your cold/flu symptoms last longer than 7 days or get worse, contact your primary care physician. If you don't have a primary care physician, [facility]. To establish care with a [employer] provider, please call . Practice social distancing and good hand hygiene to keep yourself and others safe. Your results are also available for your reference in your [employer] account under 'Test & Lab Results.' If you are not enrolled in [employer], you can create an account by going to [email or web address]. You will also receive a letter in the mail with your results. If you are a [employer] staff member or employee, when you receive your result, please call [employer] [facility] between 7 a.m. and 4 p.m. at [phone]. Notify them of your test results and for instructions on returning to work after your quarantine period. Press 1 if you would like to speak with a nurse, press 2 to hear this message again. documented in this encounter Plan of Treatment Upcoming Encounters Date Type Specialty Care Team Description 02/15/2021 Office Visit Family Vanita Carpio MD [address] [place] [address] [phone] 02/18/2021 Home Visit Family Medicine Kaylee Barakat, Community Health Toter [address] [place] [address] [phone] 02/26/2021 Immunization/Injection Hematology Oncolog y Nurse, Med [address] [place] [address] [phone] 03/03/2021 Nutrition Services Gastroenterology Melissa Omalley, [place] [address] [place] [address] 03/04/2021 Office Visit Family Medicine Alexandra Caceres DO [address], [place] [phone] 03/08/2021 Office Visit Pharmacy [place] [address], [place] [phone] 03/16/2021 Office Visit Family Vanita Carpio MD [address], [place] [phone] 04/16/2021 Office Visit Podiatry Prakash Martino, SIRENA [address] [place] [address] 04/29/2021 Appointment Radiology 07/06/2021 Office Visit Hematology Oncology Tono Sanchez MD [address] [place] [address] [phone] 07/27/2021 Office Visit Gastroenterology Lyssa Stout CRNP [address] [place] [address] [phone] 09/09/2021 Imaging Radiology Health Maintenance Due Date [...] of this encounter Implants Implanted Type Area Physician Specialist Device Identifier Shelf Expiration Date Model / Serial / Lot Microtech Sure Clip Implanted:Qty: 2 on 06/03/2020 by Hatch, Marten B, DO at OR [facility] Clip N/A: Colon 04/21/2022 [id number]-F-[id number] 35-C-R / / [id number] documented as of this encounter Advance Directives Documents on File Type Date Recorded Patient Valve Fitter Expl anation Advanced Directive service a [...] [facility] Communication Syed Fariasel Spouse Emergency Contact
--- OUTSIDE RECORDS SUMMARY | 2023-05-10 21:10 | External Medical Summary | Summary of Care ---
Author Name Unknown Organization [place] [address] Care Team Providers Care Internal Medicine Nurse Name Role Phone Alexandra Caceres Primary Care Provider [phone] Reason for Visit * Reason Comments Urinary Tract Infection Symptoms blood i n the urine and burning after urinating Encounter Details Date Type Department Care Team Description 02/15/2021 Office Visit [facility] [address] [place] [address] Vanita Dunn MD [address] [place] [address] Hematuria, unspecified type*; Abdominal pain, left lower quadrant Allergies Active Allergy Reactions Severity Noted Date Comments Adhesive Tape Itching 04/29/2020 Penicillins Rash 02/12/2008 Perflutren Protein A Microsph 2019 Definity-lower back pain documented as of this encounter (statuses as of 02/15/2021) Medications Medication Sig Dispensed Refills Start Date [...] 120 Vial 11 10/02/2019 Active nystatin (NYSTOP) 665723 UNIT/GM powder Apply topically to affected area [...] 11/19/2019 Active potassium chloride ER 10 MEQ TBCRIndications:H [...] 60 Each 3 07/27/2020 Active Dexcom G6 Consulting Property Manager Device Use as directed. To test [...] One daily 90 Tab 1 09/19/2020 Active Lidocaine-Priloca ine 2.5-2.5 % External Cream (Emla)Indications :Iron deficiency anemia due to chronic blood loss,Pancytopenia (HCC) Apply topically to affected area as needed for Other (for port). APPLY TO SKIN OVER MEDIPORT & COVER 1HR PRIOR TO ACCESSING. 30 g 3 10/09/2020 Active OneTouch Verio In Vitro Strip (Glucose Blood) TESTING once daily 100 Strip 3 10/29/2020 Active OneTouch Delica Plus Sleqgy17P TESTING once daily 100 Each 3 10/29/2020 [...] Active Additional Information Patient taking differently: 2 [place] Nasal DAILY PRN, Congestion, Informant: Pharmacy, Reported [...] Active Atorvastatin Calcium 40 MG Oral Tablet (Lipitor)Indicati ons:Dyslipidemia, goal LDL below 70 TAKE 1 TABLET [...] 01/25/2021 Active Furosemide 20 MG Oral Tablet (Lasix)Indication s:Localized edema,Venous stasis dermatitis of both lower extremities Take 1 Tab by mouth daily. 90 Tab 3 02/02/2021 Active Cinnamon 500 MG Oral Capsule Take 500 mg by mouth daily. 0 Active rifAXIMin 550 MG Oral Tablet (Xifaxan) Take 1 Tab by mouth 2 times a day for 30 days. 60 Tab 0 02/06/2021 1 Active Lactulose 20 GM/30ML Oral Solution (Constulose) Take 67.5 mL by mouth 3 times a day. Titrate to have 3 to 4 bowel movement every day. 2700 mL 2 02/09/2021 Active Cephalexin 500 MG Oral CapsuleIndication s:Hematuria, unspecified type Take 1 Cap by mouth 2 times a day for 10 days. 20 Cap 0 02/15/2021 1 Active traMADol HCl 50 MG Oral Tablet (Ultram)Indicatio ns:Abdominal pain, left lower quadrant Take 1 Tab by mouth every 6 hours as needed for Pain, Moderate. 30 Tab 0 02/15/2021 Active Acetaminophen 325 MG Oral Tablet (Tylenol) Take 650 mg by mouth every 6 hours as needed for Fever >38C(100.5F) or Pain, Mild. 0 1 Discontinued documented as of this encounter (statuses as of 02/15/2021) Active Problems Problem Noted Date Melena 02/15/2021 [...] as of this encounter (statuses as of 02/15/2021) Resolved Problems Problem Noted Date Resolved Date [...] pain 01/24/2012 01/17/2017 Genetic Sleep Disorder Research Other*[id number] 05/13/2011 04/07/2016 Obstructive sleep apnea 01/18/2011 12/27/19 [...] as of this encounter (statuses as of 02/15/2021) Immunizations Name Administration Dates Next Due COVID-19 [...] Sign Reading Time Taken Comments Blood Pressure 130/72 02/15/2021 1:57 PM EDT Pulse 75 02/15/2021 1:57 PM EDT Temperature 36.7 C (98.1 F) 02/15/2021 1:57 PM ED T Respiratory Rate - - Oxygen Saturation 92% 02/15/2021 1:57 PM EDT Inhaled Oxygen Concentration - [...] Progress Notes * Vanita Dunn MD - 02/15/2021 2:11 PM EDT ASSESSMENT / PLAN: Hematuria, unspecified type (Primary) - 65 yo F who is wheelchair bound and morbidly obese here with marohematuria observed at home in bedpan by caregiver - options discussed with regard to treatment are informed by patient's profound immobility and guarded prognosis - we have had quality of life discussions in the past (see other encounter), and she is a DNR, with her and her - at this time, we will treat her dysuria and abdominal pain and reported macrohematuria as a urinary tract infection, with the precaution discussed that if symptoms are not over all improving with abx and pain meds over the next 2-3 days, then she will need to seek reevaluation at [facility] as that facility can accommodate her disability. - also recommend a trial of tramadol as below. They are extremely reluctant to use any opiate containing medicines which is understandable, however they are barely utilizing tylenol and do not take nsaids - they have been told historically that she is to avoid. I have sent [facility] to [facility] for palliative options. - severe hepatic impairment limits use of tylenol, and for reasons uncertain she believes she is not to take ibuprofen containing products - perhaps due to h/o GIB? Will review. - pt provided with urine specimen cups should she have dysuria symptoms I the future that she couldthen bring with her. - Cephalexin 500 MG Oral Capsule; Take 1 Cap by mouth 2 times a day for 10 days. Abdominal pain, left lower quadrant - traMADol HCl 50 MG Oral Tablet (Ultram); Take 1 Tab by mouth every 6 hours as needed for Pain, Moderate. If needed, prefers contact by: Ok to leave message on phone: Total time: I spent a total of 31 minutes on the date of service in preparation, delivery, and documentation of the care provided to Shaina Bustos excluding any time spent in the performance of separately billed services. SUBJECTIVE: Shaina Bustos is a 65 year old female. Chief Complaint Patient presents with Urinary Tract Infection Symptoms blood in the urine and burning after urinating HPI: 65 yo F with h/o CP, wheelchair bound, liver cirrhosis, and chronic pain, recently in and out of hospital for pain, hyperammonemia - here with 2 days of macrohematuria. Endorses left sided abdominal pain. Had a BM x 2 yesterday, adherent with lactulose. No mentation changes. No fever. Requires a candace lift usually to be able to urinate in bed castillo. Current Outpatient Medications Medication Sig Dispense Refill Cephalexin 500 MG Oral Capsule Take 1 Cap by mouth 2 times a day for 10 days. 20 Cap 0 traMADol HCl 50 MG Oral Tablet [...] skin once a week 6 mL 3 Atorvastatin Calcium 40 MG Oral Tablet (Lipitor) TAKE 1 TABLET BY MOUTH AT BEDTIME 90 Tab 1 Pantoprazole Sodium 20 MG Oral Tablet [...] DAILY 60 Tab 5 OneTouch Delica Plus [id number] TESTING once daily 100 Each 3 OneTouch Verio In Vitro Strip (Glucose Blood) TESTING once daily 100 Strip 3 Lidocaine-Prilocaine 2.5-2.5 % External Cream (Emla) Apply topically to affected area as needed forOther (for port). APPLY TO SKIN OVER MEDIPORT & COVER 1HR PRIOR TO ACCESSING. 30 g 3 Nadolol 20 MG Oral Tablet (CORGARD) One daily 90 Tab 1 Dexcom G6 Consulting Property Manager Device Use as directed. To test [...] With spacer 16 g 1 nystatin (NYSTOP) 990987 UNIT/GM powder Apply topically to affected area [...] mouth daily. 1 Tab 0 OBJECTIVE: BP 130/72 | Pulse 75 | Temp 36.7 C (98.1 F) (Tympanic) | SpO2 92% Vitals reviewed and is normotensive afebrile and not tachycardic and not hypoxic General: No acute distress. Sitting in wheelchair. Neuro: Alert Pleasant & interactive. Respiratory: Good inspiratory effort, no labored breathing. HEENT: Conjunctivae appear clear. No swelling noted face Skin: No rash visible on exposed skin areas, normal coloration & appears dry. Psych: Normal affect. Fluent speech. Vanita Dunn MD [address] [address] documented in this encounter Nursing Notes * Tmaara Fabian LPN - 02/15/2021 1:59 PM EDT Chief Complaint Patient presents with Urinary Tract Infection Symptoms blood in the urine and burning after urinating documented in this encounter Plan of Treatment Upcoming Encounters Date Type Specialty Care Team Description 02/18/2021 Home Visit Family Medicine Kaylee Barakat, Community Health Building Construction Supervisor [address] [place] [address] [phone] 02/26/2021 Immunization/Injection Hematology Oncolog y Nurse, Med [address] [place] [address] [phone] 03/03/2021 Nutrition Services Gastroenterology Melissa Omalley, RDN [address] [facility] [place] [address] [phone] 03/04/2021 Office Visit Family Medicine Alexandra Caceres DO [address] [place] [facility] [address] 03/08/2021 Office Visit Pharmacy [facility] [address] [place] [address] 03/16/2021 Office Visit Family Medicine Vanita Dunn MD [address] [place] [address] 04/16/2021 Office Visit Podiatry Prakash Martino, [facility] [address] [place] [address] 04/29/2021 Appointment Radiology 07/06/2021 Office Visit Hematology Oncology Tono Sanchez MD [address] [facility], [place] [address] 07/27/2021 Office Visit Gastroenterology Lyssa Stout CRNP [address] [facility] [place] [address] [phone] 09/09/2021 Imaging Radiology Health Maintenance Due Date [...] of this encounter Implants Implanted Type Area Recreation Activities Coordinator Device Identifier Shelf Expiration Date Model / Serial / Lot Microtech Sure Clip Implanted:Qty: 2 on 06/03/2020 by Janis Hatch DO at OR [facility] Clip N/A: Colon 04/21/2022 [facility]-F-26-2 35-C-R / / [id number] documented as of this encounter Visit Diagnoses Diagnosis Hematuria, unspecified type- Primary Abdominal pain, left lower quadrant documented in this encounter Advance Directives Documents on File Type Date Recorded Patient Picker / Packer Expl anation Advanced Directive service a [...]
--- OUTSIDE RECORDS SUMMARY | 2023-05-10 21:11 | External Medical Summary | Summary of Care ---
Author Name Unknown Organization [place] [address] Care Team Providers Care Medical Records Administrator Name Role Phone Alexandra Caceres Primary Care Provider [phone] Reason for Visit * Reason Onset Date Comments COVID-19 Screening 02/11/2021 Encounter Details Date Type Department Care Team Description 02/11/2021 Telephone COVID19 Screening [facility] [address] [place] [address] [id number], Automated Provider COVID-19 Screening Allergies Active Allergy Reactions Severity Noted Date Comments Adhesive Tape Itching 04/29/2020 Penicillins Rash 02/12/2008 Perflutren Protein A Microsph 2019 Definity-lower back pain documented as of this encounter (statuses as of 02/12/2021) Medications Medication Sig Dispensed Refills Start Date [...] 120 Vial 11 10/02/2019 Active nystatin (NYSTOP) 016725 UNIT/GM powder Apply topically to affected area [...] 60 Each 3 07/27/2020 Active Dexcom G6 Pattern Mechanic Device Use as directed. To test [...] Strip 3 10/29/2020 Active OneTouch Delica Plus Nhomfy03Y TESTING once daily 100 Each 3 10/29/2020 [...] Active Additional Information Patient taking differently: 2 [place] Nasal DAILY PRN, Congestion, Informant: Pharmacy, [...] as of this encounter (statuses as of 02/12/2021) Active Problems Problem Noted Date Cardiomegaly 01/30/2021 [...] as of this encounter (statuses as of 02/12/2021) Resolved Problems Problem Noted Date Resolved Date [...] pain 01/24/2012 01/17/2017 Genetic Sleep Disorder Research Other*[id number] 05/13/2011 04/07/2016 Obstructive sleep apnea 01/18/2011 12/27/19 [...] as of this encounter (statuses as of 02/12/2021) Immunizations Name Administration Dates Next Due COVID-19 [...] Notes * Telephone Encounter - Yaneth Poon - 02/11/2021 11:44 PM EDT Outreach Attempts Feb 11 2021 9:03AM - Fail to reach patient IVR Message: Unsuccessful contact, no education provided documented in this encounter Plan of Treatment Upcoming Encounters Date Type Specialty Care Team Description 02/12/2021 Office Visit Family Medicine Vanita Dunn MD [address], [place] [id number] 02/18/2021 Home Visit Family Medicine Kaylee Barakat, Community Health Calibration Checker [address] [place] [address] 02/26/2021 Immunization/Injection Hematology Oncolog y Nurse, Med [address] [place] [address] [phone] 03/03/2021 Nutrition Services Gastroenterology Melissa Omalley RDN [address] [place] [address] 03/04/2021 Office Visit Family Medicine Alexandra Caceres DO [address] [place] [address] [phone] 03/08/2021 Office Visit Pharmacy [facility] [address] [place] [address] [phone] 04/16/2021 Office Visit Podiatry Prakash Martino, SIRENA [address] [place] [address] 04/29/2021 Appointment Radiology 07/06/2021 Office Visit Hematology Oncology Tono Sanchez MD [address] [place] [address] [phone] 07/27/2021 Office Visit Gastroenterology Lyssa Stout CRNP [address] [facility] [address] [phone] 09/09/2021 Imaging Radiology Health Maintenance Due Date [...] of this encounter Implants Implanted Type Area Electronics Engineering Technician Device Identifier Shelf Expiration Date Model / Serial / Lot Microtech Sure Clip Implanted:Qty: 2 on 06/03/2020 by Janis Hatch DO at OR [facility] Clip N/A: Colon 04/21/2022 [facility]-F-26-2 35-C-R / / [id number] documented as of this encounter Advance Directives Documents on File Type Date Recorded Patient Hose Tender Expl anation Advanced Directive service a [...]
--- OUTSIDE RECORDS SUMMARY | 2023-05-10 21:11 | External Medical Summary | Summary of Care ---
Author Name Unknown Organization [place] [address] Care Team Providers Care Director Supply Name Role Phone Alexandra Caceres Primary Care Provider [phone] Reason for Visit * Reason Onset Date Comments COVID-19 Screening 02/13/2021 Encounter Details Date Type Department Care Team Description 02/13/2021 Telephone COVID19 Screening [facility] [address] [place] [address] [id number], Automated Provider COVID-19 Screening Allergies Active Allergy Reactions Severity Noted Date Comments Adhesive Tape Itching 04/29/2020 Penicillins Rash 02/12/2008 Perflutren Protein A Microsph 2019 Definity-lower back pain documented as of this encounter (statuses as of 02/13/2021) Medications Medication Sig Dispensed Refills Start Date [...] 120 Vial 11 10/02/2019 Active nystatin (NYSTOP) 942348 UNIT/GM powder Apply topically to affected area [...] 60 Each 3 07/27/2020 Active Dexcom G6 Filler Operator Device Use as directed. To test [...] Strip 3 10/29/2020 Active OneTouch Delica Plus [id number] TESTING once daily 100 Each 3 10/29/2020 [...] of less than 7.0% ([facility]) Use to inject insulin four times [...] as of this encounter (statuses as of 02/13/2021) Active Problems Problem Noted Date Cardiomegaly 01/30/2021 [...] as of this encounter (statuses as of 02/13/2021) Resolved Problems Problem Noted Date Resolved Date [...] pain 01/24/2012 01/17/2017 Genetic Sleep Disorder Research Other*[id number] 05/13/2011 04/07/2016 Obstructive sleep apnea 01/18/2011 12/27/19 [...] as of this encounter (statuses as of 02/13/2021) Immunizations Name Administration Dates Next Due COVID-19 [...] * Telephone Encounter - Yaneth Poon - 02/13/2021 10:27 PM EDT Outreach Attempts Feb 13 2021 9:05AM - Fail to reach patient IVR Message: Unsuccessful contact, no education provided documented in this encounter Plan of Treatment Upcoming Encounters Date Type Specialty Care Team Description 02/18/2021 Home Visit Family Medicine Kaylee Barakat, Community Health Dietetic Tech [address] [place] [address] [phone] 02/26/2021 Immunization/Injection Hematology Oncolog y Nurse, Med [address] [place] [address] [phone] 03/03/2021 Nutrition Services Gastroenterology Melissa Omalley RDN [address] [place] [address] 03/04/2021 Office Visit Family Medicine Alexandra Caceres DO [address] [place] [address] [phone] 03/08/2021 Office Visit Pharmacy [facility] [address] [place] [address] [phone] 03/16/2021 Office Visit Family Medicine Vanita Dunn MD [address] [place] [address] [phone] 04/16/2021 Office Visit Podiatry Prakash Martino, SIRENA [address] [place] [address] 04/29/2021 Appointment Radiology 07/06/2021 Office Visit Hematology Oncology Tono Sanchez MD [address] [facility] [address] [phone] 07/27/2021 Office Visit Gastroenterology Lyssa Stout CRNP [address] [facility] [place] [address] [phone] 09/09/2021 Imaging Radiology Health Maintenance Due Date [...] this encounter Implants Implanted Type Area Senior Adults Director Device Identifier Shelf Expiration Date Model / Serial / Lot Microtech Sure Clip Implanted:Qty: 2 on 06/03/2020 by Janis Hatch DO at OR [facility] Clip N/A: Colon 04/21/2022 [facility]-F-26-2 35-C-R / / [id number] documented as of this encounter Advance Directives Documents on File Type Date Recorded Patient Assistant Boys Track Coach 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 [facility] p Communication Syed Bustos Spouse Emergency Contact
--- OUTSIDE RECORDS SUMMARY | 2023-05-10 21:11 | External Medical Summary | Summary of Care ---
Author [place] [address] Care Team Providers Care Engineering Program Analyst Name Role Phone NikAlexandra fernandez Primary Care Provider Reason for Visit * Reason Onset Date Comments Emergency Department Follow-Up navya ragland was at [facility] for flank pain. Hospital Follow-Up 02/12/2021 Encounter Details Date Type Department Care Team Description 02/12/2021 Office Visit [facility] [address] [place] [address] Vanita Dunn MD [address] [place] [address] Hospital discharge follow-up*; DNR (do not resuscitate); Type 2 diabetes mellitus with hemoglobin A1c goal of less than 7.0% (HCC); Restrictive lung disease; Secondary esophageal varices without bleeding (HCC); Hepatic cirrhosis, unspecified hepatic cirrhosis type, unspecified whether ascites present (HCC); NG (nonalcoholic steatohepatitis); Cerebral palsy, unspecified type (HCC); Chronic pain syndrome; Wheelchair dependent Allergies Active Allergy Reactions Severity [...] 120 Vial 11 10/02/2019 Active nystatin (NYSTOP) 350332 UNIT/GM powder Apply topically to affected area [...] Each 3 07/27/2020 Active Dexcom G6 General Agent Device Use as directed. To test [...] Strip 3 10/29/2020 Active OneTouch Delica Plus Ugtray99L TESTING once daily 100 Each 3 10/29/2020 [...] of less than 7.0% ([facility]) Use to inject insulin four times daily; E11.42 400 Each 3 12/05/2020 Active Fluticasone Propionate 50 MCG/ACT Nasal Suspension (Flonase)Indication s:Sinus congestion USE 2 SPRAYS IN EACH NOSTRIL ONCE DAILY as directed 16 g 5 12/23/2020 Active Additional Information Patient taking differently: 2 [place] Nasal DAILY PRN, Congestion, Informant: Pharmacy, Reported [...] less than 7.0% ([facility]) inject 30 units under skin at [...] mass index (BMI) of 45.0-49.9 in adult 03/2017 Overview: bmi= 48.04 12/09/15 Need for shingles [...] pain 01/24/2012 01/17/2017 Genetic Sleep Disorder Research Other*[id number] 05/13/2011 04/07/2016 Obstructive sleep apnea 01/18/2011 12/27/19 [...] Sign Reading Time Taken Comments Blood Pressure 132/70 02/12/2021 4:02 PM EDT Pulse 80 02/12/2021 4:02 PM EDT Temperature 36.9 C (98.4 F) 02/12/2021 4:02 PM ED T Respiratory Rate 18 02/12/2021 4:02 PM EDT Oxygen Saturation - - Inhaled [...] Progress Notes * Vanita Dunn MD - 02/12/2021 3:40 PM EDT ASSESSMENT / PLAN: Hospital discharge follow-up (Primary) - DISCH MED RECON CUR MED LIS DNR (do not resuscitate) - DISCH MED RECON CUR MED LIS Type 2 diabetes mellitus with hemoglobin A1c goal of less than 7.0% (HCC) - DISCH MED RECON CUR MED LIS Restrictive lung disease - DISCH MED RECON CUR MED LIS Secondary esophageal varices without bleeding (HCC) - DISCH MED RECON CUR MED LIS Hepatic cirrhosis, unspecified hepatic cirrhosis type, unspecified whether ascites present (HCC) - DISCH MED RECON CUR MED LIS NG (nonalcoholic steatohepatitis) - DISCH MED RECON CUR MED LIS Cerebral palsy, unspecified type (HCC) - DISCH MED RECON CUR MED LIS Chronic pain syndrome - DISCH MED RECON CUR MED LIS Wheelchair dependent - DISCH MED RECON CUR MED LIS 65 yo F here with her - with h/o multiple comorbidities and poor prognosis - several ER visits since last day of discharge - case discussed at length with case mgmt, appreciate assistance with arranging home health as patient has said adamantly she wants to avoid readmission and rehab stay.We also discussed option of speaking with palliative care in future to further elucidate goals and quality of life. Recommend close f/u, answered all questions. Follow Up: Return in 1 month (on 03/14/2021). If needed, prefers contact by: Ok to leave message on phone: SUBJECTIVE: Shaina Bustos is a 65 year old female. Chief Complaint Patient presents with Emergency Department Follow-Up patient was at [facility] for [facility]. Hospital Follow-Up Scheduling Notes: [facility] discharge 02/06 HPI: Review of DC summary from admission 01/30 - 02/02 for CHF exacerbation - treated with IV diuresis and supplemental O2 - TTE on 01/31 shows normal EF but otherwise technically limited study due to body habitus. Sent home on daily Lasix 20mg. Intermittent history: Review of most recent case mgmt notes - "patient s/p hospitalization at [facility] on 01/30/21, treated forCHF, discharged home on 02/02/21, patient returned to the ER at [facility] on 02/03/21, treated for confusion, discharged home on 02/06/21, returned to [facility] ER on 02/09/21 due to constipation, treated with a Lactulose enema, discharged home later that day." Today: presents with her . Endorses adherence with medication regimen. Is having at least one BM per day. Discussed goals with regard to quality of life - she voices a desire to see her Step mom in [place] but is limited by multiple doctors appointments. Current Outpatient Medications Medication Sig Dispense Refill [...] BY MOUTH ONCE DAILY 90 Tab 3 Cyclobenzaprine HCl 10 MG Oral Tablet [...] DAILY 60 Tab 5 OneTouch Delica Plus Nsidgm29C TESTING once daily 100 Each 3 OneTouch Verio In Vitro Strip (Glucose Blood) TESTING once daily 100 Strip 3 Lidocaine-Prilocaine 2.5-2.5 % External Cream (Emla) Apply topically to affected area as neededfor Other (for port). APPLY TO SKIN OVER MEDIPORT & COVER 1HR PRIOR TO ACCESSING. 30 g 3 Nadolol 20 MG Oral Tablet (CORGARD) One daily 90 Tab 1 Dexcom G6 General Agent Device Use as directed. To test [...] With spacer 16 g 1 nystatin (NYSTOP) 937788 UNIT/GM powder Apply topically to affected area 3 times a day. 60 g 1 vitamin c (ASCORBIC ACID) 500 MG Tablet Take 500 mg by mouth daily. CENTRUM SILVER PO TABS Take 1 Tab by mouth daily. 1 Tab 0 Acetaminophen 325 MG Oral Tablet (Tylenol) Take 650 mg by mouth every 6 hours as needed for Fever >38C(100.5F) or Pain, Mild. Fluticasone Propionate 50 MCG/ACT Nasal Suspension (Flonase) USE 2 SPRAYS IN EACH NOSTRIL ONCE DAILY as directed (Patient taking differently: Administer 2 Sprays into nostril daily as needed for Congestion.) 16 g 5 BD Pen Needle Mini U/F 31G X 5 MM (Insulin Pen Needle) Use to inject insulin four times daily; E11.42 400 Each 3 albuterol sulfate (PROVENTIL) (2.5 MG/3ML) 0.083% nebulizer solution Inhale 1 Vial via nebulizer every 6 hours as needed for Wheezing. 120 Vial 11 OBJECTIVE: BP 132/70 | Pulse 80 | Temp 36.9 C (98.4 F) (Tympanic) | Resp 18 Vitals reviewed and is normotensive afebrile and not tachycardic General: No acute distress. Seated in wheelchair Neuro: Alert Pleasant & interactive. Respiratory: Good inspiratory effort, +slightly labored breathing. Skin: No rash visible on exposed skin areas, normal coloration & appears dry. Psych: Normal affect. Fluent speech. Vanita Dunn MD [address] [address] documented in this encounter Nursing Notes * Janett Hurst LPN - 02/12/2021 4:00 PM EDT Chief Complaint Patient presents with Emergency Department Follow-Up patient was at [facility] for flank pain. documented in this encounter Plan of Treatment Upcoming Encounters Date Type Specialty Care Team Description 02/18/2021 Home Visit Family Medicine Kaylee Barakat, [facility] Flight Operations Engineer [address] [place] [address] [phone] 02/26/2021 Immunization/Injection Hematology Oncolog y Nurse, Med 4 [address] [place] [address] [phone] 03/03/2021 Nutrition Services Gastroenterology Melissa Omalley RDN [address] [facility] [address] [place] [address] 03/04/2021 Office Visit Family Medicine Alexandra Caceres, DO [address] [place] [address] [phone] 03/08/2021 Office Visit Pharmacy [facility] [address] [place] [address] [phone] 03/16/2021 Office Visit Family Medicine Vanita Dunn MD [address] [place] [address] [phone] 04/16/2021 Office Visit Podiatry Prakash Martino, [facility] [address] [place] [address] 04/29/2021 Appointment Radiology 07/06/2021 Office Visit Hematology Oncology Tono Sanchez MD [address] [place] [address] [phone] 07/27/2021 Office Visit Gastroenterology Lyssa Stout CRNP [address] [place] [address] [phone] 09/09/2021 Imaging Radiology Health Maintenance Due Date [...] of this encounter Implants Implanted Type Area Pot Builder Device Identifier Shelf Expiration Date Model / Serial / Lot Microtech Sure Clip Implanted:Qty: 2 on 06/03/2020 by Janis Hatch DO at OR [facility] Clip N/A: Colon 04/21/2022 [facility]-F-26-2 35-C-R / / [id number] documented as of this encounter Visit Diagnoses Diagnosis Hospital discharge follow-up- Primary Other follow-up examination DNR (do not resuscitate) Do not resuscitate status Type 2 diabetes mellitus with hemoglobin A1c goal of less than 7.0% (HCC) Restrictive lung disease Other diseases of lung, not elsewhere classified Secondary esophageal varices without bleeding (HCC) Esophageal varices without mention of bleeding in diseases classified elsewhere Hepatic cirrhosis, unspecified hepatic cirrhosis type, unspecified whether ascites present (HCC) NG (nonalcoholic steatohepatitis) Other chronic nonalcoholic liver disease Cerebral palsy, unspecified type (HCC) Chronic pain syndrome Wheelchair dependent Wheelchair dependence documented in this encounter Advance Directives Documents on File Type Date Recorded 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
--- OUTSIDE RECORDS SUMMARY | 2023-05-10 21:11 | External Medical Summary | Summary of Care ---
Author Name Unknown Organization [place] [address] Care Team Providers Care Concrete Float Maker Name Role Phone Alexandra Caceres Primary Care Provider [phone] Reason for Visit * Reason Onset Date Comments COVID-19 Screening 02/12/2021 Encounter Details Date Type Department Care Team Description 02/12/2021 Telephone COVID19 Screening [facility] [address] [place] [phone], Automated Provider COVID-19 Screening Allergies Active Allergy [...] 120 Vial 11 10/02/2019 Active nystatin (NYSTOP) 350918 UNIT/GM powder Apply topically to affected area [...] 60 Each 3 07/27/2020 Active Dexcom G6 Auricular Therapist Device Use as directed. To test blood [...] Strip 3 10/29/2020 Active OneTouch Delica Plus Rijbki08E TESTING once daily 100 Each 3 10/29/2020 [...] than 7.0% ([facility]) Use to inject insulin four times daily; E11.42 400 Each 3 12/05/2020 Active Fluticasone Propionate 50 MCG/ACT Nasal Suspension (Flonase)Indication s:Sinus congestion USE 2 SPRAYS IN EACH NOSTRIL ONCE DAILY as directed 16 g 5 12/23/2020 Active Additional Information Patient taking differently: 2 [place] Nasal DAILY PRN, Congestion, Informant: Pharmacy, Reported [...] pain 01/24/2012 01/17/2017 Genetic Sleep Disorder Research Other*[id number] 05/13/2011 04/07/2016 Obstructive sleep apnea 01/18/2011 12/27/19 [...] * Telephone Encounter - Yaneth Poon - 02/12/2021 11:08 PM EDT Outreach Attempts Feb 12 2021 9:02AM - Fail to reach patient IVR Message: Unsuccessful contact, no education provided documented in this encounter Plan of Treatment Upcoming Encounters Date Type Specialty Care Team Description 02/18/2021 Home Visit Family Medicine Kaylee Barakat, [facility] Neurology Epilepsy Physician [address] [place] [address] [phone] 02/26/2021 Immunization/Injection Hematology Oncolog y Nurse, Med 4 [address] [place] [address] [phone] 03/03/2021 Nutrition Services Gastroenterology Melissa Omalley RDN [address] [place] [address] 03/04/2021 Office Visit Family Medicine Aleaxndra Caceres DO [address] [place] [address] [phone] 03/08/2021 Office Visit Pharmacy [facility] [address] [place] [address] [phone] 03/16/2021 Office Visit Family Medicine Vanita Dunn MD [address] [place] [address] [phone] 04/16/2021 Office Visit Podiatry Prakash Martino, SI[place] [address] [place] [address] 04/29/2021 Appointment Radiology 07/06/2021 Office Visit Hematology Oncology Tono Sanchez MD [address] [place] [address] [phone] 07/27/2021 Office Visit Gastroenterology Lyssa Stout CRNP [address] [facility] [place] [address] [phone] 09/09/2021 Imaging Radiology Health Maintenance Due Date [...] of this encounter Implants Implanted Type Area Foster Care Therapist Device Identifier Shelf Expiration Date Model / Serial / Lot Microtech Sure Clip Implanted:Qty: 2 on 06/03/2020 by Janis Hatch DO at OR [facility] Clip N/A: Colon 04/21/2022 [facility]-F-26-2 35-C-R / / [id number] documented as of this encounter Advance Directives Documents on File Type Date Recorded Patient Loan Workout Officer Expl anation Advanced Directive service a [...]
--- OUTSIDE RECORDS SUMMARY | 2023-05-10 21:12 | External Medical Summary ---
Author Name Unknown Address Unknown Organization K01:[facility] - [address] [place] [address] Laboratory Report Ordering Provider Test Date Status IESHA SHUKLA 02/09/2021 14:37:00 Final Observation Date Value Abnormality Reference (Units ) Status Ammonia 02/09/2021 14:37:00 72 Above high normal 11 -35 (umol/L) Final Performing Location [facility] - [address] [place] [address]
--- OUTSIDE RECORDS SUMMARY | 2023-05-10 21:12 | External Medical Summary | Summary of Care ---
Author Name Unknown Organization [facility] [address] Care Team Providers Care Wash Oil Pump Operator Name Role Phone Alexandra Caceres DO Primary Care Provider Reason for Referral * Evaluate & Treat - Unlimited Visits (Within 10 days (routine)) Status Reason Specialty Diagnoses / Procedures Referred By Contact Referred To Contact Authorized Specialty Services Required HOME CARE / Home Care Diagnoses Cerebral palsy, unspecified type (HCC) Alexandra Caceres DO [address] [place] [address] Question Answer Referral Priority Within 10 days (routine) Comments Documentation of Nacz-kl-Txbs Encounter Addendum Patient Name: Shaina Bustos I certify that this patient is under my care and that I, or a nurse practitioner or physician's school bus driver/teacher assistant working with me, had a [id number] encounter that meets the physician pyyd-hk-ughy encounter requirements with this patient on: 02/12/21 The encounter with the patient was in whole, or in part, for the following medical condition, which is the primary reason for home health care (List medical condition): Convalescence from acute illness I certify that, based on my findings, the following services are medically necessary home health services: Nursing and Physical Therapy To provide the following care/treatments: (All hospitalists not following the patient after discharge should complete this section): Primary Care Physician to follow home care plan of care after discharge: My clinical findings support the need for the above services because: Further, I certify that my clinical findings support that this patient is homebound (i.e. Absences from home require considerable and taxing effort and are for medical reasons or congregation services or infrequently or of short duration when for other reason) because: Physician Signature: Date of Signature: Physician Printed Name: Connie Arguello RN Electronically signed by Alexandra Caceres DO at Reason for Visit * Reason Onset Date Comments Order Request 02/10/2021 Encounter Details Date Type Department Care Team Description 02/10/2021 Steamfitter Supervisor [address] [facility] [address] [place] [address] Connie Arguello RN [address] [place] [address] Order Request Allergies Active Allergy Reactions Severity Noted Date Comments Adhesive Tape Itching 04/29/2020 Penicillins Rash 02/12/2008 Perflutren Protein A Microsph 2019 Definity-lower back pain documented as of this encounter (statuses as of 02/10/2021) Medications Medication Sig Dispensed Refills Start Date [...] 120 Vial 11 10/02/2019 Active nystatin (NYSTOP) 666926 UNIT/GM powder Apply topically to affected area [...] 60 Each 3 07/27/2020 Active Dexcom G6 Soyfreeze Operator Device Use as directed. To test [...] Strip 3 10/29/2020 Active OneTouch Delica Plus Xiinul82N TESTING once daily 100 Each 3 10/29/2020 [...] Active Additional Information Patient taking differently: 2 [place] Nasal DAILY PRN, Congestion, Informant: Pharmacy, Reported [...] as of this encounter (statuses as of 02/10/2021) Active Problems Problem Noted Date Cardiomegaly 01/30/2021 [...] as of this encounter (statuses as of 02/10/2021) Resolved Problems Problem Noted Date Resolved Date [...] pain 01/24/2012 01/17/2017 Genetic Sleep Disorder Research Other*[id number] 05/13/2011 04/07/2016 Obstructive sleep apnea 01/18/2011 12/27/19 [...] as of this encounter (statuses as of 02/10/2021) Immunizations Name Administration Dates Next Due COVID-19 [...] Telephone Encounter - Connie Arguello RN - 02/10/2021 2:[address] Caceres, As per our discussion, patient was recently hospitalized & has had a recent ER visit-I spoke with the patient & her -I think home health nursing & therapy would be helpful-the manages her medications, but I was unable to do a medication reconciliation over the phone-the seemed a little confused about her medications, patient would benefit from close RN follow up. Patient is scheduled for a PCP follow up appointment with Dr. Dunn on 02/12/21, you did not have any openings-can you please sign the home health orders & [facility] said they could see the patient on February 14-thanks Connie Arguello RN documented in this encounter Plan of Treatment Upcoming Encounters Date Type Specialty Care Team Description 02/12/2021 Office Visit Family Medicine Vanita Dunn MD [address] [facility] [place] [address] [phone] 02/26/2021 Immunization/Injection Hematology Oncolog y Nurse, Med 4 [address] [facility] [place] [address] [phone] 03/03/2021 Nutrition Services Gastroenterology Melissa Omalley, RDN [address] [facility] [place] [address] [phone] 03/04/2021 Office Visit Family Medicine Alexandra Caceres, DO [address] [place] [address] 03/08/2021 [facility] [address], [place] [id number] 04/16/2021 Office Visit Podiatry Prakash Martino, M [address] [place] [address] 04/29/2021 Appointment Radiology 07/06/2021 Office Visit Hematology Oncology Tono Sanchez MD [address] [place] [address] [phone] 07/27/2021 Office Visit Gastroenterology Lyssa Stout CRNP [address] [facility] [address] [phone] 09/09/2021 Imaging Radiology Scheduled Referrals Name Type Priority Associated Diagnoses Orde r Schedule HOME HEALTH REFERRAL OP Referral Within 10 days (routine) Cerebral palsy, unspecified type (HCC) Ordered: 02/10/2021 Health Maintenance Due Date Last Done Comments [...] encounter Implants Implanted Type Area Director Of Radio Services Device Identifier Shelf Expiration Date Model / Serial / Lot Microtech Sure Clip Implanted:Qty: 2 on 06/03/2020 by [facility]is [facility]atch [facility] Clip N/A: Colon 04/21/2022 [facility]-F-26-2 35-C-R / / [id number] documented as of this encounter Visit Diagnoses Diagnosis Cerebral palsy, unspecified type (HCC)- Primary documented in this encounter Advance Directives Documents on File Type Date Recorded Patient Alterations Workroom Clerk Expl anation Advanced Directive service a [...] on File Name Relationship Healthcare Agent Romainme navya Communication Syed Bustos Spouse Emergency Contact
--- OUTSIDE RECORDS SUMMARY | 2023-05-10 21:12 | External Medical Summary | Summary of Care ---
Author Name Unknown Organization [place] [address] Care Team Providers Care Transit Clerk Name Role Phone Alexandra Caceres Primary Care Provider [phone] Reason for Visit * Reason Onset Date Comments COVID-19 Screening 02/10/2021 Encounter Details Date Type Department Care Team Description 02/10/2021 Telephone COVID19 Screening [facility] [address] [place] [address] [phone], Automated Provider COVID-19 Screening Allergies Active Allergy Reactions Severity Noted Date Comments Adhesive Tape Itching 04/29/2020 Penicillins Rash 02/12/2008 Perflutren Protein A Microsph 2019 Definity-lower back pain documented as of this encounter (statuses as of 02/11/2021) Medications Medication Sig Dispensed Refills Start Date [...] 120 Vial 11 10/02/2019 Active nystatin (NYSTOP) 932625 UNIT/GM powder Apply topically to affected area [...] 60 Each 3 07/27/2020 Active Dexcom G6 Racing Driver Device Use as directed. To test [...] Strip 3 10/29/2020 Active OneTouch Delica Plus Nfobdd11T TESTING once daily 100 Each 3 10/29/2020 [...] Active Additional Information Patient taking differently: 2 [place] Nasal DAILY PRN, Congestion, Informant: Pharmacy, Reported [...] as of this encounter (statuses as of 02/11/2021) Active Problems Problem Noted Date Cardiomegaly 01/30/2021 [...] weakness 04/04/2019 Pancytopenia 02/21/2019 Wheelchair dependent 12/21/2018 TAHD on CPAP 12/26/2017 [...] as of this encounter (statuses as of 02/11/2021) Resolved Problems Problem Noted Date Resolved Date [...] pain 01/24/2012 01/17/2017 Genetic Sleep Disorder Research Other*[id number] 05/13/2011 04/07/2016 Obstructive sleep apnea 01/18/2011 12/27/19 [...] as of this encounter (statuses as of 02/11/2021) Immunizations Name Administration Dates Next Due COVID-19 [...] Telephone Encounter - Yaneth Poon - 02/11/2021 12:53 AM EDT Outreach Attempts Feb 10 2021 9:01AM - Fail to reach patient IVR Message: Unsuccessful contact, no education provided documented in this encounter Plan of Treatment Upcoming Encounters Date Type Specialty Care Team Description 02/12/2021 Office Visit Family Medicine [facility] Dunn MD [address] [facility] [address] 02/26/2021 Immunization/Injection Hematology Oncolog y Nurse, Med 4 [address] [place] [address] [phone] 03/03/2021 Nutrition Services Gastroenterology Melissa Omalley, SAMANTHA [address] [place] [address] [phone] 03/04/2021 Office Visit Family Medicine Alexandra Caceres DO [address] [facility] [place] [id number] 03/08/2021 Office Visit Pharmacy [facility] [address] [facility] [id number] 04/16/2021 Office Visit Podiatry Prakash Martino, SI[place] [address] [place] [address] 04/29/2021 Appointment Radiology 07/06/2021 Office Visit Hematology Oncology Tono Sanchez MD 200 [place] [address] [phone] 07/27/2021 Office Visit Gastroenterology Lyssa Stout CRNP [address] [facility], [place] [address] [phone] 09/09/2021 Imaging Radiology Health Maintenance Due Date [...] of this encounter Implants Implanted Type Area Early Childhood Worker Device Identifier Shelf Expiration Date Model / Serial / Lot Microtech Sure Clip Implanted:Qty: 2 on 06/03/2020 by Janis Hatch DO at OR [facility] Clip N/A: Colon 04/21/2022 [facility]-F-26-2 35-C-R / / [id number] documented as of this encounter Advance Directives Documents on File Type Date Recorded Patient Light Technician Expl anation Advanced Directive service a [...]
--- OUTSIDE RECORDS SUMMARY | 2023-05-10 21:12 | External Medical Summary ---
Author Name Unknown Address Unknown Organization K01:[place]ORY [facility] [place] [address] [place] [address] Laboratory Report Ordering Provider Test Date Status IESHA SHUKLA 02/09/2021 15:41:03 Final Observation Date Value Abnormality Reference (Units ) Status SARS Coronavirus 2 02/09/2021 15:41:03 Negative N egative Final Performing Location [facility] - [address] [place] [address]
--- OUTSIDE RECORDS SUMMARY | 2023-05-10 21:12 | External Medical Summary | Summary of Care ---
Author Name Unknown Organization [facility] Address [place] [address] Care Team Providers Care Level Glass Forming Machine Operator Name Role Phone CarlosjosefaAlexandra fernandez Primary Care Provider [phone] Encounter Details Date Type Department Care Team Description 02/11/2021 [facility] [address] [place] [address] Connie Arguello, UMA [address] [place] [address] Other cirrhosis of liver (HCC)*; Restrictive lung disease Allergies Active Allergy Reactions [...] 120 Vial 11 10/02/2019 Active nystatin (NYSTOP) 308318 UNIT/GM powder Apply topically to affected area [...] 60 Each 3 07/27/2020 Active Dexcom G6 Sr Account Executive Device Use as directed. To test [...] Strip 3 10/29/2020 Active OneTouch Delica Plus [id number] TESTING once daily 100 Each 3 10/29/2020 [...] less than 7.0% ([facility]) Use to inject insulin four times daily; E11.42 400 Each 3 12/05/2020 Active Fluticasone Propionate 50 MCG/ACT Nasal Suspension (Flonase)Indication s:Sinus congestion USE 2 SPRAYS IN EACH NOSTRIL ONCE DAILY as directed 16 g 5 12/23/2020 Active Additional Information Patient taking differently: 2 [place] Nasal DAILY PRN, Congestion, Informant: Pharmacy, Reported [...] pain 01/24/2012 01/17/2017 Genetic Sleep Disorder Research Other*[id number] 05/13/2011 04/07/2016 Obstructive sleep apnea 01/18/2011 12/27/19 [...] as of this encounter Progress Notes * Conine Arguello RN - 02/11/2021 9:37 AM EDT Case Management Assessment-late entry, spoke with patient & her Syed on 02/10/21, patient s/p hospitalization at [facility] on 01/30/21, treated for CHF, discharged home on 02/02/21, patient returned to the ER at [facility] on 02/03/21, treated for confusion, discharged home on 02/06/21, returned to [facility] ER on 02/09/21 due to constipation, treated with a Lactulose enema, discharged home later that day HX: 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 Is this call for a hospital, detention or rehab facility discharge to home? Yes see above S: Reports: Patient noted to be alert & oriented, hard to understand at times due to soft, hoarse voice Patient states she has SOB when she lays flat, says she coughs "once in awhile" Denies angina, has some swelling to her legs, no worse than normal for her Patient using CPAP at night with O2 at 2 liters, not able to weigh herself, is wheelchair bound Has a fair appetite, reinforced 2 gm sodium diet Says her bowels are moving, denies urinary complaints Denies skin issues or open areas to her skin Sleeping okay at night Blood sugars have been stable, patient unable to give numbers, says her monitoring system has not alarmed since being home Last A1C on 11/30/20 was 6.9 Patient lives in a house with 1st floor set up with her , has ramp entry Patient is non-ambulatory, gets around in a wheelchair, has a candace lift for transfers Patient needs assistance with ADL's, has caregivers thru [employer] 3 days a 3 week, M, W, F from 8-3 pm helps with care when caregivers not there, Syed mentions that he would like additional care hours for his Spoke kwame Cardona, patient's [facility] managed care liaison, she states that she plans to do a reassessment on 02/16/21, hopes to get additional hours approved Home health was not ordered when discharged, message sent to Dr. Caceres requesting home health orders to be signed Will send home health order to [facility], was told they could see the patient on 02/14/21 Assisted patient with getting PCP visit moved up to be seen on 02/16/[address] Dunn O: Phone visit for post hospital discharge. Medications: Patient's medication managed by Syed/, he was unable to do medication reconciliation over the phone, says they get pill packs thru [facility] in [place], called pharmacy & requested patient's current medication list Does this patient qualify for an annual [...] understand some instructions, process some information P: Egg Packer Interventions: Encouraged patient to call with increased SOB, cough, fever, chills,increased LE/abdominal edema G[facility] EMILE referral to make home visit, provide education on DM, CHF, do safety check & medicationreview Home Health orders sent to Dr. Caceres for signature Assisted patient with getting PCP follow up visit scheduled Reviewed HF symptom monitoring: -Weigh self daily [...] questions concerning care Encouraged patient to call mattress spring encaser with any questions/concerns at [phone]. Office Hours: Mon- 8-8 pm, Monday 8-5 pm, [facility] weekend clinic hours: Saturdays 8-5, Sundays 8-5 PCP Notified of enrollment in CM/HM program: Yes SNP Member? No Re-evaluation of plan of care and progress towards goals achievement: Plan to call patient beginning of next week to reassess and update plan of care, verbalizes understanding and agrees with plan. Connie Arguello RN Outpatient Egg Packer documented in this encounter Plan of Treatment Upcoming Encounters Date Type Specialty Care Team Description 02/12/2021 Office Visit Family Medicine Vanita Dunn MD [address] [place] [address] [phone] 02/26/2021 Immunization/Injection Hematology Oncolog y Nurse, Med [address] [place] [address] [phone] 03/03/2021 Nutrition Services Gastroenterology Melissa Omlaley, RDN [address] [place] [address] [facility] [place] [address] [phone] 03/04/2021 Office Visit Family Medicine Alexandra Caceres, DO [address] [place] [address] [phone] 03/08/2021 Office Visit Pharmacy [facility] [address], [place] [id number] 04/16/2021 Office Visit Podiatry Prakash Martino, [facility] [address] [place] [address] 04/29/2021 Appointment Radiology 07/06/2021 Office Visit Hematology Oncology Tono Sanchez MD [address] [place] [address] [phone] 07/27/2021 Office Visit Gastroenterology Lyssa Stout CRNP [address] [place] [address] [phone] 09/09/2021 Imaging Radiology Health Maintenance Due Date [...] this encounter Implants Implanted Type Area Hand Sewer Shoes Device Identifier Shelf Expiration Date Model / Serial / Lot [employer] Sure Clip Implanted:Qty: 2 on 06/03/2020 by Janis Hatch DO at OR [facility] Clip N/A: Colon 04/21/2022 [facility]-F-26-2 35-C-R / / [id number] documented as of this encounter Visit Diagnoses Diagnosis Other cirrhosis of liver (HCC)- Primary Restrictive lung disease Other diseases of lung, not elsewhere classified documented in this encounter Advance Directives Documents on File Type Date Recorded Patient Mount Loader Expl anation Advanced Directive service a [...] Agents on File Name Relationship Healthcare Agent [facility] Communication Syed Bustos Spouse Emergency Contact
--- OUTSIDE RECORDS SUMMARY | 2023-05-10 21:13 | External Medical Summary ---
Author Name Unknown Address Unknown Organization K01:[place] [facility] [place] [address] [place] [address] Laboratory Report Ordering Provider Test Date Status DREAD ERAZO 02/09/2021 10:38:00 Final Observation Date Value Abnormality Reference (Units ) Status Lipase 02/09/2021 10:38:00 36 13-60 (U/L ) Final Performing Location [facility] - [address] [place] [address]
--- OUTSIDE RECORDS SUMMARY | 2023-05-10 21:13 | External Medical Summary ---
Author Name Unknown Address Unknown Organization : Laboratory Report Ordering Provider Test Date Status CHRISTIANA JUSTICE 02/04/2021 21:04:47 Final Observation Date Value Abnormality Reference (Units ) Status Glucose Point of Care 02/04/2021 21:04:47 150 Above high normal 70-120 (mg/dL) Final Performing Location
--- OUTSIDE RECORDS SUMMARY | 2023-05-10 21:13 | External Medical Summary ---
Author Name Unknown Address Unknown Organization K01:[facility]ATORY [facility] [place] [address] [place] [address] Laboratory Report Ordering Provider Test Date Status DREAD ERAZO 02/09/2021 10:38:00 Final Observation Date Value Abnormality Reference (Units ) Status BUN 02/09/2021 10:38:00 7 6-20 (mg/dL) Final Creatinine 02/09/2021 10:38:00 0.6 0.5-1.0 (mg/dL) Final Glomerular filtration rate/1.73 sq M.predicted [Volume Rate/Area] in Serum, Plasma or Blood by Creatinine-based formula (CKD-EPI) 02/09/2021 10:38:00 >90.0 >=60.0 (mL/min) Final Performing Location LABORATORY [facility] [place] - [address] [place] [address]
--- OUTSIDE RECORDS SUMMARY | 2023-05-10 21:13 | External Medical Summary ---
Author Name Unknown Address Unknown Organization K01[place] [facility] [place] [address] [place] [address] Laboratory Report Ordering Provider Test Date Status DREAD ERAZO 02/09/2021 10:38:00 Final Observation Date Value Abnormality Reference (Units ) Status WBC, Total 02/09/2021 10:38:00 6.88 4.00-10.8 0 (K/uL) Final RBC 02/09/2021 10:38:00 3.81 Below low normal 3.8 5-5.15 (M/uL) Final Hemoglobin 02/09/2021 10:38:00 11.9 Below low normal 12 .0-15.3 (g/dL) Final HCT 02/09/2021 10:38:00 37.9 36.0-45.2 (%) Final MCV 02/09/2021 10:38:00 99.5 Above high normal 81 .5-97.5 (fL) Final MCH 02/09/2021 10:38:00 31.2 27.0-34.0 (pg) Final MCHC 02/09/2021 10:38:00 31.4 Below low normal 32. 0-36.0 (g/dL) Final RDW 02/09/2021 10:38:00 22.9 Above high normal 11 .5-15.5 (%) Final MPV 02/09/2021 10:38:00 Final Performing Location [place] [place] [address] [place] [address]
--- OUTSIDE RECORDS SUMMARY | 2023-05-10 21:13 | External Medical Summary ---
Author Name Unknown Address Unknown Organization K01:[facility]ATORY [facility] [place] [address] [place] [address] Laboratory Report Ordering Provider Test Date Status CHRISTIANA JUSTICE 02/05/2021 14:02:00 Final Observation Date Value Abnormality Reference (Units ) Status Bacteria identified in Unspecified specimen by Culture 02/05/2021 14:02:00 No growth Final Performing Location LABORATORY [facility] - [address] [place] [address]
--- OUTSIDE RECORDS SUMMARY | 2023-05-10 21:13 | External Medical Summary ---
Author Name Unknown Address Unknown Organization : Laboratory Report Ordering Provider Test Date Status CHRISTIANA JUSTICE 02/06/2021 11:17:45 Final Observation Date Value Abnormality Reference (Units ) Status Glucose Point of Care 02/06/2021 11:17:45 237 Above high normal 70-120 (mg/dL) Final Performing Location
--- OUTSIDE RECORDS SUMMARY | 2023-05-10 21:13 | External Medical Summary ---
Author Name Unknown Address Unknown Organization K01:[place] [facility] [place] [address] [place] [address] Laboratory Report Ordering Provider Test Date Status CHRISTIANA JUSTICE 02/05/2021 14:02:00 Final Observation Date Value Abnormality Reference (Units ) Status Bacteria identified in Unspecified specimen by Culture 02/05/2021 14:02:00 No growth Final Performing Location LABORATORY [facility] - [address] [place] [address]
--- OUTSIDE RECORDS SUMMARY | 2023-05-10 21:13 | External Medical Summary ---
Author Name Unknown Address Unknown Organization : Laboratory Report Ordering Provider Test Date Status CHRISTIANA JUSTICE 02/05/2021 21:22:23 Final Observation Date Value Abnormality Reference (Units ) Status Glucose Point of Care 02/05/2021 21:22:23 220 Above high normal 70-120 (mg/dL) Final Performing Location
--- OUTSIDE RECORDS SUMMARY | 2023-05-10 21:13 | External Medical Summary ---
Author Name Unknown Address Unknown Organization K01:[facility]ATORY [facility] [place] - [address] [place] [address] Laboratory Report Ordering Provider Test Date Status MERRY OVIEDO 02/05/2021 06:42:00 Final Observation Date Value Abnormality Reference (Units ) Status BUN 02/05/2021 06:42:00 14 6-20 (mg/dL) Final Creatinine 02/05/2021 06:42:00 0.6 0.5-1.0 (mg/dL) Final Glomerular filtration rate/1.73 sq M.predicted [Volume Rate/Area] in Serum, Plasma or Blood by Creatinine-based formula (CKD-EPI) 02/05/2021 06:42:00 >90.0 >=60.0 (mL/min) Final Performing Location LABORATORY [facility] [place] - [address] [place] [address]
--- OUTSIDE RECORDS SUMMARY | 2023-05-10 21:13 | External Medical Summary ---
Author Name Unknown Address Unknown Organization K01:[place] [facility] [place] [address] [place] [address] Laboratory Report Ordering Provider Test Date Status DREAD ERAZO 02/09/2021 10:38:00 Final Observation Date Value Abnormality Reference (Units ) Status SYNC LEUKOCYTES IN BLOOD BY AUTOMATED COUNT 02/09/2021 10:38:00 6.88 4.00-10.80 (K/uL) Final Segs 02/09/2021 10:38:00 53.5 40.0-75.0 (%) Final Lymphs % 02/09/2021 10:38:00 22.1 18.0-42.0 (%) Final Monos 02/09/2021 10:38:00 14.0 Above high normal 1.0-11.0 (%) Final Eosinophils 02/09/2021 10:38:00 9.0 Above high normal 0.0-6.0 (%) Final Basos 02/09/2021 10:38:00 1.0 0.0-2.0 (%) Final Immature Granulocyte, Percent 02/09/2021 10:38:00 0.4 0.0-2.0 (%) Final Absolute Segs 02/09/2021 10:38:00 3.68 1.80-7.70 (K/uL) Final Lymphs, absolute 02/09/2021 10:38:00 1.52 1.00-4.80 (K/ul) Final Monos, Abs 02/09/2021 10:38:00 0.96 0.00-1.10 (K/uL) Final Eos, Abs 02/09/2021 10:38:00 0.62 0.00-0.70 (K/uL) Final Basos, Abs 02/09/2021 10:38:00 0.07 0.00-0.20 (K/uL) Final Immature Granulocytes, Number 02/09/2021 10:38:00 0.03 0.00-0.20 (K/uL) Final Performing Location [place] [facility] [place] [facility] [place] [facility] [place] [address]
--- OUTSIDE RECORDS SUMMARY | 2023-05-10 21:13 | External Medical Summary ---
Author Name Unknown Address Unknown Organization K01:LABORATORY [facility] [place] [address] [facility] [address] Laboratory Report Ordering Provider Test Date Status DREAD ERAZO 02/09/2021 10:38:00 Final Observation Date Value Abnormality Reference (Units ) Status Lactic Acid 02/09/2021 10:38:00 1.7 0.4-2.0 (mmol/L) Final Performing Location LABORATORY C - [address] [facility] [address]
--- OUTSIDE RECORDS SUMMARY | 2023-05-10 21:13 | External Medical Summary ---
Author Name Unknown Address Unknown Organization K01:[place] [facility] [place] [address] [place] [address] Laboratory Report Ordering Provider Test Date Status MERRY OVIEDO 02/05/2021 06:42:00 Final Observation Date Value Abnormality Reference (Units ) Status WBC, Total 02/05/2021 06:42:00 4.91 4.00-10.8 0 (K/uL) Final RBC 02/05/2021 06:42:00 3.84 Below low normal 3.8 5-5.15 (M/uL) Final Hemoglobin 02/05/2021 06:42:00 11.8 Below low normal 12 .0-15.3 (g/dL) Final HCT 02/05/2021 06:42:00 38.1 36.0-45.2 (%) Final MCV 02/05/2021 06:42:00 99.2 Above high normal 81 .5-97.5 (fL) Final MCH 02/05/2021 06:42:00 30.7 27.0-34.0 (pg) Final MCHC 02/05/2021 06:42:00 31.0 Below low normal 32. 0-36.0 (g/dL) Final RDW 02/05/2021 06:42:00 24.0 Above high normal 11 .5-15.5 (%) Final MPV 02/05/2021 06:42:00 Final Performing Location LABORATORY C - [address] [place] [address]
--- OUTSIDE RECORDS SUMMARY | 2023-05-10 21:13 | External Medical Summary ---
Author Name Unknown Address Unknown Organization : Laboratory Report Ordering Provider Test Date Status CHRISTIANA JUSTICE 02/06/2021 07:54:59 Final Observation Date Value Abnormality Reference (Units ) Status Glucose Point of Care 02/06/2021 07:54:59 191 Above high normal 70-120 (mg/dL) Final Performing Location
--- OUTSIDE RECORDS SUMMARY | 2023-05-10 21:13 | External Medical Summary ---
Author Name Unknown Address Unknown Organization : Laboratory Report Ordering Provider Test Date Status CHRISTIANA JUSTICE 02/05/2021 17:20:38 Final Observation Date Value Abnormality Reference (Units ) Status Glucose Point of Care 02/05/2021 17:20:38 144 Above high normal 70-120 (mg/dL) Final Performing Location
--- OUTSIDE RECORDS SUMMARY | 2023-05-10 21:13 | External Medical Summary ---
Author Name Unknown Address Unknown Organization : Laboratory Report Ordering Provider Test Date Status CHRISTIANA JUSTICE 02/05/2021 11:58:25 Final Observation Date Value Abnormality Reference (Units ) Status Glucose Point of Care 02/05/2021 11:58:25 150 Above high normal 70-120 (mg/dL) Final Performing Location
--- OUTSIDE RECORDS SUMMARY | 2023-05-10 21:14 | External Medical Summary ---
Author Name Unknown Address Unknown Organization K01:[place] [place] [address] [place] [address] Laboratory Report Ordering Provider Test Date Status SHERWIN TREVINO 02/04/2021 05:08:00 Final Observation Date Value Abnormality Reference (Units ) Status Color of Urine by Auto 02/04/2021 05:08:00 Yellow Colorless, Light Yellow, Yellow, Dark Yellow Final Clarity, Urine 02/04/2021 05:08:00 Clear Clear Final Glucose [Mass/volume] in Urine by Automated test strip 02/04/2021 05:08:00 Negative Negative (mg/dL) Final Bilirubin.total [Presence] in Urine by Automated test strip 02/04/2021 05:08:00 Negative Negative Final Ketones [Mass/volume] in Urine by Automated test strip 02/04/2021 05:08:00 Negative Negative (mg/dL) Final Specific gravity, Urine 02/04/2021 05:08:00 >1.050 Above high normal 1.003-1.030 Final Hemoglobin [Presence] in Urine by Automated test strip 02/04/2021 05:08:00 Large Abnormal Negative Final pH, Urine 02/04/2021 05:08:00 6.5 5.0-7.5 (Units) Final Protein [Mass/volume] in Urine by Automated test strip 02/04/2021 05:08:00 100 Abnormal Negative (mg/dL) Final Urobilinogen [Mass/volume] in Urine by Automated test strip 02/04/2021 05:08:00 4.0 Abnormal Normal (mg/dL) Final Nitrite [Presence] in Urine by Automated test strip 02/04/2021 05:08:00 Negative Negative Final Leukocyte esterase [Presence] in Urine by Automated test strip 02/04/2021 05:08:00 Small Abnormal Negative Final RBC, Urine 02/04/2021 05:08:00 50+ Abnormal 0-2 (/HPF) Final WBC, Urine 02/04/2021 05:08:00 50+ Abnormal 0-2 (/HPF) Final Bacteria [#/area] in Urine sediment by Microscopy high power field 02/04/2021 05:08:00 0-25 0-25 (/HPF) Final Hyaline casts, Urine 02/04/2021 05:08:00 1-4 Abnormal None (/LPF) Final CULTURE, URINE - [facility] 02/04/2021 05:08:00 Final Performing Location [facility] [place] [address] [facility] [address]
--- OUTSIDE RECORDS SUMMARY | 2023-05-10 21:14 | External Medical Summary ---
Author Name Unknown Address Unknown Organization K01:LABORATORY [facility] [place] [address] [place] [address] Laboratory Report Ordering Provider Test Date Status SHERWIN TREVINO 02/04/2021 05:08:00 Final Observation Date Value Abnormality Reference (Units ) Status Bacteria identified in Unspecified specimen by Culture 02/04/2021 05:08:00 < 10,000 colonies/ml mixed normal juan manuel Final Performing Location LABORATORY C - [address] [place] [address]
--- OUTSIDE RECORDS SUMMARY | 2023-05-10 21:14 | External Medical Summary ---
Author Name Unknown Address Unknown Organization : Laboratory Report Ordering Provider Test Date Status MERRY OVIEDO 02/04/2021 17:34:12 Final Observation Date Value Abnormality Reference (Units ) Status Glucose Point of Care 02/04/2021 17:34:12 211 Above high normal 70-120 (mg/dL) Final Performing Location
--- OUTSIDE RECORDS SUMMARY | 2023-05-10 21:14 | External Medical Summary ---
Author Name Unknown Address Unknown Organization K01[place] [facility] [place] [address] [place] [address] Laboratory Report Ordering Provider Test Date Status SYLVIA LAMAR 02/04/2021 05:31:00 Final Observation Date Value Abnormality Reference (Units ) Status BUN 02/04/2021 05:31:00 17 6-20 (mg/dL) Final Creatinine 02/04/2021 05:31:00 0.7 0.5-1.0 (mg/dL) Final Glomerular filtration rate/1.73 sq M.predicted [Volume Rate/Area] in Serum, Plasma or Blood by Creatinine-based formula (CKD-EPI) 02/04/2021 05:31:00 >90.0 >=60.0 (mL/min) Final Performing Location [place] [facility] [place] [address] [place] [address]
--- OUTSIDE RECORDS SUMMARY | 2023-05-10 21:14 | External Medical Summary ---
Author Name Unknown Address Unknown Organization K01:[place] [facility] [place] [address] [place] [address] Laboratory Report Ordering Provider Test Date Status SYLVIA LAMAR 02/04/2021 05:31:00 Final Observation Date Value Abnormality Reference (Units ) Status WBC, Total 02/04/2021 05:31:00 5.21 4.00-10.8 0 (K/uL) Final RBC 02/04/2021 05:31:00 3.99 3.85-5.15 (M/uL) Final Hemoglobin 02/04/2021 05:31:00 12.4 12.0-15.3 (g/dL) Final HCT 02/04/2021 05:31:00 39.4 36.0-45.2 (%) Final MCV 02/04/2021 05:31:00 98.7 Above high normal 81 .5-97.5 (fL) Final MCH 02/04/2021 05:31:00 31.1 27.0-34.0 (pg) Final MCHC 02/04/2021 05:31:00 31.5 Below low normal 32. 0-36.0 (g/dL) Final RDW 02/04/2021 05:31:00 23.9 Above high normal 11 .5-15.5 (%) Final MPV 02/04/2021 05:31:00 Final Performing Location LAB[facility]ORY [facility] [place] [address] [place] [address]
--- OUTSIDE RECORDS SUMMARY | 2023-05-10 21:14 | External Medical Summary ---
Author Name Unknown Address Unknown Organization : Laboratory Report Ordering Provider Test Date Status MERRY OVIEDO 02/04/2021 12:27:39 Final Observation Date Value Abnormality Reference (Units ) Status Glucose Point of Care 02/04/2021 12:27:39 263 Above high normal 70-120 (mg/dL) Final Performing Location
--- OUTSIDE RECORDS SUMMARY | 2023-05-10 21:14 | External Medical Summary | Summary of Care ---
Author Name Unknown Organization [place] [address] Care Team Providers Care Butter Wrapper Name Role Phone Alexandra Caceres Primary Care Provider [phone] Reason for Visit * Reason Onset Date Comments FYI 02/03/2021 Encounter Details Date Type Department Care Team Description 02/03/2021 Lisw Telephone Family Practice [facility] [address] [facility] [place] [address] Gabe Carlton, U[facility] [address] [place], [place] [id number] FYI Allergies Active Allergy Reactions Severity Noted Date Comments Adhesive Tape Itching 04/29/2020 Penicillins Rash 02/12/2008 Perflutren Protein A Microsph 2019 Definity-lower back pain documented as of this encounter (statuses as of 02/04/2021) Medications Medication Sig Dispensed Refills Start Date [...] 120 Vial 11 10/02/2019 Active nystatin (NYSTOP) 906351 UNIT/GM powder Apply topically to affected area [...] 11/19/2019 Active potassium chloride ER 10 MEQ TBCRIndications:Hypok alemia TAKE 1 TABLET BY MOUTH ONCE DAILY WITH FOOD 90 Tab 3 05/25/2020 Active silver sulfadiazine (SILVADENE) 1 % cream Apply topically to affected area daily. Apply to right great toe 50 g 0 05/26/2020 Active famotidine (PEPCID) 20 MG Tablet Take 1 Tab by mouth every night at bedtime. 34 Tab 0 05/29/2020 Active Ipratropium-Albuterol 0.5-2.5 (3) MG/3ML Inhalation Solution (DUONEB)Indications:M oderate persistent asthma with acute exacerbation Inhale 3 mL via nebulizer 4 times a day. 3 mL 10 07/27/2020 Active Fluticasone-Salmetero l 250-50 MCG/DOSE Inhalation Aerosol Powder Breath Activated (Advair Diskus)Indications:Mo derate persistent asthma with acute exacerbation Inhale 1 Puff by mouth 2 times a day. 60 Each 3 07/27/2020 Active Dexcom G6 Robotic Weld Technician Device Use as directed. 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 APPLY TO SKIN OVER MEDIPORT & COVER 1HR PRIOR TO ACCESSING. 30 g 3 10/09/2020 Active OneTouch Verio In Vitro Strip (Glucose Blood) TESTING once daily 100 Strip 3 10/29/2020 Active OneTouch Delica Plus [id number] TESTING once daily 100 Each 3 10/29/2020 Active Levothyroxine Sodium 200 MCG Oral Tablet (Levoxyl) TAKE 1 TABLET BY MOUTH ONCE DAILY 90 Tab 3 11/02/2020 Active Oxybutynin Chloride 5 MG Oral Tablet (Ditropan) TAKE 1 TABLET BY MOUTH TWICE DAILY 60 Tab 5 11/02/2020 Active Tamsulosin HCl 0.4 MG Oral Capsule (Flomax) TAKE 1 CAPSULE BY MOUTH ONCE DAILY 90 Cap 3 11/02/2020 Active Gabapentin 300 MG Oral Capsule [...] as directed 16 g 5 12/23/2020 Active Escitalopram Oxalate 20 MG Oral Tablet [...] Active Atorvastatin Calcium 40 MG Oral Tablet (Lipitor)Indications: Dyslipidemia, goal LDL below 70 TAKE 1 TABLET [...] 01/25/2021 Active Furosemide 20 MG Oral Tablet (Lasix)Indications:Lo calized edema,Venous stasis dermatitis of both lower extremities Take 1 Tab by mouth daily. 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 No 01/31/2021 Are you blind or do you have serious difficulty seeing, even when wearing glasses? No 01/31/2021 Do you have serious difficul ty walking or climbing stairs? 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 02/01/2021 Do you have difficulty dress ing or bathing? 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 01/31/2021 Because of a physical, menta l, or emotional condition, do you have difficulty doing errands alone such as visiting a doctor s office or shopping? (15 years old or older) Yes 02/01/20 Cognitive Status Response Date of Assessm ent Because of a physical, menta l, or emotional condition, do you have serious difficulty concentrating, remembering, or making decisions? (5 years old or older No 01/31/2021 documented as of this encounter Miscellaneous Notes * Telephone Encounter - Alexandra Caceres DO - 02/04/2021 1:54 PM EDT Pt in Er at [place] * Telephone Encounter - Gabe aCrlton RN - 02/03/2021 2:[address] Caceres Spoke with Mr. Bustos for post hospital follow up. States that patient was very quiet on the way home from [place] yesterday and she is not normally like that. Last evening he reports that she was "kind of confused". And it continued into today, he is concerned that she may have had a stroke and has not gotten any better throughout the day. Confusion continues today, he is not able to redirect her. States that she normally gives her own shots and today she was not able to even push down on the plunger, almost like her hand was not working. He reports that she also has not voided after giving her lasix this AM. After review of epic record, patient was not noted for being confused or having difficulty with useof hands. Discussed ER versus waiting for an appointment for tomorrow at the Clinic. Spouse take patient to the ER at [facility]. Appreciative of call today. documented in this encounter Plan of Treatment Upcoming Encounters Date Type Specialty Care Team Description 02/26/2021 Immunization/Injection Hematology Oncolog y Nurse, Med [address] [place] [address] [phone] 03/03/2021 Nutrition Services Gastroenterology Melissa Omalley RDN [address] [place] [id number] 03/04/2021 Office Visit Family Medicine Alexandra Caceres DO [address] [facility], [place] [address] [phone] 03/08/2021 Office Visit Pharmacy [facility] [address] [place] [address] [phone] 04/16/2021 Office Visit Podiatry Prakash Martino, SI[place] [address] [place] [address] 04/29/2021 Appointment Radiology 07/06/2021 Office Visit Hematology Oncology Tono Sanchez MD [address] [facility] [place] [address] [phone] 07/27/2021 Office Visit Gastroenterology Lyssa Stout CRNP [address] 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
--- OUTSIDE RECORDS SUMMARY | 2023-05-10 21:15 | External Medical Summary ---
Author Name Unknown Address Unknown Organization [id number]:[place] [facility] [place] [address] [facility] [address] Laboratory Report Ordering Provider Test Date Status SHERWIN TREVINO 02/03/2021 17:16:00 Final Observation Date Value Abnormality Reference (Units ) Status Lactic Acid, Whole Blood 02/03/2021 17:16:00 1.7 0.4-2.0 (mmol/L) Final Performing Location [place] [place] [address] [facility] [address]
--- OUTSIDE RECORDS SUMMARY | 2023-05-10 21:15 | External Medical Summary ---
Author Name Unknown Address Unknown Organization [id number]:[place] [facility] [place] [address] [place] [address] Laboratory Report Ordering Provider Test Date Status ANDREEA LAMARR 02/04/2021 00:45:00 Final Observation Date Value Abnormality Reference (Units ) Status Ammonia 02/04/2021 00:45:00 95 Above upper panic limits 11-35 (umol/L) Final Performing Location [facility] - [address] [facility] [address]
--- OUTSIDE RECORDS SUMMARY | 2023-05-10 21:15 | External Medical Summary ---
Author Name Unknown Address Unknown Organization K01:[place] [facility] [place] [facility] [address] [place] [address] Laboratory Report Ordering Provider Test Date Status SHERWIN TREVINO 02/03/2021 17:16:00 Final Observation Date Value Abnormality Reference (Units ) Status Body temperature 02/03/2021 17:16:00 37.0 (C) Final pH of Venous blood 02/03/2021 17:16:00 7.450 Above high normal 7.320-7.430 (units) Final Carbon dioxide [Partial pressure] in Venous blood 02/03/2021 17:16:00 40.5 40.0-60.0 (mmHg) Final Oxygen [Partial pressure] in Venous blood 02/03/2021 17:16:00 63.5 Above high normal 25.0-50.0 (mmHg) Final Bicarbonate, Venous 02/03/2021 17:16:00 27.7 23.0-31.0 (mmol/L) Final Base excess, Capillary 02/03/2021 17:16:00 3.9 Above high normal -2.0-2.0 (mmol/L) Final Hemoglobin [Mass/volume] in Blood by Oximetry 02/03/2021 17:16:00 12.7 12.0-15.3 (g/dL) Final Oxyhemoglobin, Venous (FO2HB) 02/03/2021 17:16:00 88.8 Above high normal 40.0-85.0 (% total Hgb) Final Carboxyhemoglobin 02/03/2021 17:16:00 1.1 <=1.5 (% total Hgb) Final Performing Location [place] [facility] [place] [address] [place] [address]
--- OUTSIDE RECORDS SUMMARY | 2023-05-10 21:15 | External Medical Summary ---
Author Name Unknown Address Unknown Organization [id number]:[place] [facility] [place] [address] [facility] [place] [address] Laboratory Report Ordering Provider Test Date Status SHERWIN TREVINO 02/03/2021 17:16:00 Final Observation Date Value Abnormality Reference (Units ) Status SYNC LEUKOCYTES IN BLOOD BY AUTOMATED COUNT 02/03/2021 17:16:00 5.34 4.00-10.80 (K/uL) Final Segs 02/03/2021 17:16:00 54.2 40.0-75.0 (%) Final Lymphs % 02/03/2021 17:16:00 23.6 18.0-42.0 (%) Final Monos 02/03/2021 17:16:00 9.6 1.0-11.0 (%) Final Eosinophils 02/03/2021 17:16:00 10.9 Above high normal 0.0-6.0 (%) Final Basos 02/03/2021 17:16:00 1.1 0.0-2.0 (%) Final Immature Granulocyte, Percent 02/03/2021 17:16:00 0.6 0.0-2.0 (%) Final Absolute Segs 02/03/2021 17:16:00 2.90 1.80-7.70 (K/uL) Final Lymphs, absolute 02/03/2021 17:16:00 1.26 1.00-4.80 (K/ul) Final Monos, Abs 02/03/2021 17:16:00 0.51 0.00-1.10 (K/uL) Final Eos, Abs 02/03/2021 17:16:00 0.58 0.00-0.70 (K/uL) Final Basos, Abs 02/03/2021 17:16:00 0.06 0.00-0.20 (K/uL) Final Immature Granulocytes, Number 02/03/2021 17:16:00 0.03 0.00-0.20 (K/uL) Final Performing Location [place] [facility] [place] [facility] [place] [address]
--- OUTSIDE RECORDS SUMMARY | 2023-05-10 21:15 | External Medical Summary ---
Author Name Unknown Address Unknown Organization K01:[place] [facility] [place] [address] [facility] [address] Laboratory Report Ordering Provider Test Date Status SHERWIN TREVINO 02/03/2021 17:16:00 Final Observation Date Value Abnormality Reference (Units ) Status BUN 02/03/2021 17:16:00 17 6-20 (mg/dL) Final Creatinine 02/03/2021 17:16:00 0.7 0.5-1.0 (mg/dL) Final Glomerular filtration rate/1.73 sq M.predicted [Volume Rate/Area] in Serum, Plasma or Blood by Creatinine-based formula (CKD-EPI) 02/03/2021 17:16:00 88.2 >=60.0 (mL/min) Final Performing Location [facility] [place] [address] [facility] [address]
--- OUTSIDE RECORDS SUMMARY | 2023-05-10 21:15 | External Medical Summary ---
Author Name Unknown Address Unknown Organization K01:[facility] [place] [address] [place] [address] Laboratory Report Ordering Provider Test Date Status SHERWIN TREVINO 02/03/2021 17:16:00 Final Observation Date Value Abnormality Reference (Units ) Status Albumin 02/03/2021 17:16:00 3.6 Below low normal 3.8-5.0 (g/dL) Final AST (Aspartate aminotransferase) 02/03/2021 17:16:00 55 Above high normal 10-35 (U/L) Final Alk Phos 02/03/2021 17:16:00 195 Above high normal 35-130 (U/L) Final ALT (Alanine aminotransferase) 02/03/2021 17:16:00 27 10-35 (U/L) Final Bilirubin, Total 02/03/2021 17:16:00 1.2 <=1.2 (mg/dL) Final Bilirubin, Direct 02/03/2021 17:16:00 0.5 Above high normal 0.0-0.3 (mg/dL) Final Protein 02/03/2021 17:16:00 7.5 6.0-8.3 (g/dL) Final Performing Location LAB[facility]ORY [facility] [place] [address] [place] [address]
--- OUTSIDE RECORDS SUMMARY | 2023-05-10 21:15 | External Medical Summary ---
Author Name Unknown Address Unknown Organization K01:LABORATORY [facility] - [address] [place] [address] Laboratory Report Ordering Provider Test Date Status SYLVIA LAMAR 02/04/2021 01:17:00 Final Observation Date Value Abnormality Reference (Units ) Status T4, Free 02/04/2021 01:17:00 1.7 0.9-1.7 (n g/dL) Final Performing Location [facility] - [address] [place] [address]
--- OUTSIDE RECORDS SUMMARY | 2023-05-10 21:15 | External Medical Summary ---
Author Name Unknown Address Unknown Organization K01:[place] [facility] [place] [address] [place] [address] Laboratory Report Ordering Provider Test Date Status SHERWIN TREVINO 02/03/2021 17:16:00 Final Observation Date Value Abnormality Reference (Units ) Status aPTT panel - Platelet poor plasma 02/03/2021 17:16:00 34 21-38 (seconds) Final Performing Location [facility] [place] [address] [place] [address]
--- OUTSIDE RECORDS SUMMARY | 2023-05-10 21:15 | External Medical Summary ---
Author Name Unknown Address Unknown Organization K01:[place] [facility] [place] [address] [place] [address] Laboratory Report Ordering Provider Test Date Status SYLVIA LAMAR 02/04/2021 01:17:00 Final Observation Date Value Abnormality Reference (Units ) Status TSH 02/04/2021 01:17:00 0.17 Below low normal 0.2 7-4.20 (uIU/mL) Final Performing Location LABORATORY [facility] - [address] [place] [address]
--- OUTSIDE RECORDS SUMMARY | 2023-05-10 21:15 | External Medical Summary ---
Author Name Unknown Address Unknown Organization K01:LAB[facility]ATORY [facility] - [address] [place] [address] Laboratory Report Ordering Provider Test Date Status EVIE BAILEY 02/03/2021 22:59:38 Final Observation Date Value Abnormality Reference (Units ) Status SARS Coronavirus 2 02/03/2021 22:59:38 Negative N egative Final Performing Location [facility] - [address] [place] [address]
--- OUTSIDE RECORDS SUMMARY | 2023-05-10 21:15 | External Medical Summary ---
Author Name Unknown Address Unknown Organization K01:[facility] [place] [address] [place] [address] Laboratory Report Ordering Provider Test Date Status SHERWIN TREVINO 02/03/2021 17:16:00 Final Observation Date Value Abnormality Reference (Units ) Status PT 02/03/2021 17:16:00 15.0 Above high normal 11 .5-14.6 (seconds) Final INR 02/03/2021 17:16:00 1.17 Above high normal 0. 84-1.14 Final Performing Location LABOR[facility]ORY [facility] [place] [address] [place] [address]
--- OUTSIDE RECORDS SUMMARY | 2023-05-10 21:15 | External Medical Summary | Summary of Care ---
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 05/13/2011 04/07/2016 Obstructive sleep apnea 01/18/2011 12/27/19 [...] as of this encounter (statuses as of 02/03/2021) Immunizations Name Administration Dates Next Due COVID-19 [...] lent, No Preserve, IM 06/07/2016 Seasonal Influenza, Trivalen t, with Preserve, 3yr & Above, Split 05/22/2015,05/29/2014,07/25/2013,05/12,06/02/2011,06/01/2010,06/04/20,08/18/2008 05/22/2016 TDAP (age 10 and older)(Boostrix) [...] No 01/31/2021 documented as of this encounter Plan of Treatment Upcoming Encounters Date Type Specialty Care Team Description 02/26/2021 Immunization/Injection Hematology Oncolog y Nurse, Med 4 [address] [facility] [place] [address] [phone] 03/03/2021 Nutrition Services Gastroenterology Melissa Omalley, RDN [address] [place] [address] [phone] 03/04/2021 Office Visit Family Medicine Alexandra Caceres, DO [address] [place], [place] [id number] 03/08/2021 Office Visit Pharmacy [facility] [address] [place] [address] [phone] 04/16/2021 Office Visit Podiatry Prakash Martino, [facility] [address] [place] [address] 04/29/2021 Appointment Radiology 07/06/2021 Office Visit Hematology Oncology [facility] [address] [facility] [address] [phone] 07/27/2021 Office Visit Gastroenterology Lyssa Stout CRNP [address] [place] [address] [phone] 09/09/2021 Imaging Radiology Health Maintenance Due Date Last Done Comments DIABETES-EYE EXAM 06/12/2019 06/12/2018, , 06/12/2018, Additional history exists DIABETES-URINE MICROALBUMIN EVERY 12 MONTHS 01/12/2020 01/11/2019, 08/24/2018, 07/19/2018, Additional history exists Dexa Scan 2020 Zoster [...] 09/08/2021 09/08/2020, 09/02/2019, 04/04/2018, Additional history exists Pneumococcal Vaccine: 65+ Years [...] 06/03/2020 by Janis Hatch DO at OR [facility] Clip N/A: Colon 04/21/2022 [facility]-F-26-2 35-C-R / / [id number] documented as of this encounter Advance Directives Documents on File Type Date Recorded Patient Head Of Data Expl anation Advanced Directive service a kerri [...] 02/01/2021 3:33 PM Advanced Directive Advanced Directive Latest Code Status on File Code Status Date Activated Date Inactivated Comments Full Code 01/30/2021 10:59 PM 02/02/2021 7:01 [...] and were consensually agreed upon. Full Code 07/04/2020 3:26 PM 07/07/2020 6:07 PM Thi s order reflects the patients wishes and were consensually agreed upon. Healthcare Agents on File Name Relationship Healthcare Agent Romainia navya Communication Syed Bustos Spouse Emergency Contact
--- OUTSIDE RECORDS SUMMARY | 2023-05-10 21:15 | External Medical Summary ---
Author Name Unknown Address Unknown Organization : Laboratory Report Ordering Provider Test Date Status BRIA GUPTA 02/04/2021 00:38:26 Final Observation Date Value Abnormality Reference (Units ) Status Glucose Point of Care 02/04/2021 00:38:26 161 Above high normal 70-120 (mg/dL) Final Performing Location
--- OUTSIDE RECORDS SUMMARY | 2023-05-10 21:15 | External Medical Summary ---
Author Name Unknown Address Unknown Organization K01:[facility] [place] [address] [place] [address] Laboratory Report Ordering Provider Test Date Status SHERWIN TREVINO 02/03/2021 17:16:00 Final Observation Date Value Abnormality Reference (Units ) Status Troponin T 02/03/2021 17:16:00 8 <=14 (ng/ L) Final Performing Location [facility] - [address] [place] [address]
--- OUTSIDE RECORDS SUMMARY | 2023-05-10 21:16 | External Medical Summary ---
Author Name Unknown Address Unknown Organization K01:[place] [facility] [place] [address] [place] [address] Laboratory Report Ordering Provider Test Date Status LUIS ARMANDO CROSS 02/01/2021 05:30:00 Final Observation Date Value Abnormality Reference (Units ) Status Lipase 02/01/2021 05:30:00 18 13-60 (U/L ) Final Performing Location [facility] - [address] [place] [address]
--- OUTSIDE RECORDS SUMMARY | 2023-05-10 21:16 | External Medical Summary ---
Author Name Unknown Address Unknown Organization K01:[facility] [place] [address] [place] [address] Laboratory Report Ordering Provider Test Date Status JODY PLUMMER 01/31/2021 23:22:00 Final Observation Date Value Abnormality Reference (Units ) Status Troponin T 01/31/2021 23:22:00 9 <=14 (ng/ L) Final Performing Location [facility] - [address] [place] [address]
--- OUTSIDE RECORDS SUMMARY | 2023-05-10 21:16 | External Medical Summary ---
Author Name Unknown Address Unknown Organization K01:[facility] - [address] [place] [address] Laboratory Report Ordering Provider Test Date Status LUIS ARMANDO CROSS 02/01/2021 05:30:00 Final Observation Date Value Abnormality Reference (Units ) Status Magnesium 02/01/2021 05:30:00 1.7 1.5-2.6 (m g/dL) Final Performing Location [facility] - [address] [place] [address]
--- OUTSIDE RECORDS SUMMARY | 2023-05-10 21:16 | External Medical Summary ---
Author Name Unknown Address Unknown Organization K01[place] [facility] [place] [address] [place] [address] Laboratory Report Ordering Provider Test Date Status MIREILLE BOSE 01/30/2021 21:14:00 Final Observation Date Value Abnormality Reference (Units ) Status SARS Coronavirus 2 01/30/2021 21:14:00 Negative N egative Final Performing Location [facility] - [address] [place] [address]
--- OUTSIDE RECORDS SUMMARY | 2023-05-10 21:16 | External Medical Summary ---
Author Name Unknown Address Unknown Organization K01:[place] [facility] [place] [address] [place] [address] Laboratory Report Ordering Provider Test Date Status UYEN SHUKLA JR 01/31/2021 05:17:00 Final Observation Date Value Abnormality Reference (Units ) Status BUN 01/31/2021 05:17:00 12 6-20 (mg/dL) Final Creatinine 01/31/2021 05:17:00 0.6 0.5-1.0 (mg/dL) Final Glomerular filtration rate/1.73 sq M.predicted [Volume Rate/Area] in Serum, Plasma or Blood by Creatinine-based formula (CKD-EPI) 01/31/2021 05:17:00 >90.0 >=60.0 (mL/min) Final Performing Location [facility] [place] [address] [place] [address]
--- OUTSIDE RECORDS SUMMARY | 2023-05-10 21:16 | External Medical Summary ---
Author Name Unknown Address Unknown Organization K01:LABORATORY [facility] [place] - [address] [place] [address] Laboratory Report Ordering Provider Test Date Status LUIS ARMANDO CROSS 02/01/2021 05:29:00 Final Observation Date Value Abnormality Reference (Units ) Status WBC, Total 02/01/2021 05:29:00 4.20 4.00-10.8 0 (K/uL) Final RBC 02/01/2021 05:29:00 3.60 Below low normal 3.8 5-5.15 (M/uL) Final Hemoglobin 02/01/2021 05:29:00 11.0 Below low normal 12 .0-15.3 (g/dL) Final HCT 02/01/2021 05:29:00 35.1 Below low normal 36. 0-45.2 (%) Final MCV 02/01/2021 05:29:00 97.5 81.5-97.5 (fL) Final MCH 02/01/2021 05:29:00 30.6 27.0-34.0 (pg) Final MCHC 02/01/2021 05:29:00 31.3 Below low normal 32. 0-36.0 (g/dL) Final RDW 02/01/2021 05:29:00 24.1 Above high normal 11 .5-15.5 (%) Final MPV 02/01/2021 05:29:00 Final Performing Location [facility] - [address] [place] [address]
--- OUTSIDE RECORDS SUMMARY | 2023-05-10 21:16 | External Medical Summary ---
Author Name Unknown Address Unknown Organization : Laboratory Report Ordering Provider Test Date Status LUIS ARMANDO CROSS 02/01/2021 06:43:03 Final Observation Date Value Abnormality Reference (Units ) Status Glucose Point of Care 02/01/2021 06:43:03 140 Above high normal 70-120 (mg/dL) Final Performing Location
--- OUTSIDE RECORDS SUMMARY | 2023-05-10 21:16 | External Medical Summary ---
Author Name Unknown Address Unknown Organization K01:[place] [facility] [place] [address] [place] [address] Laboratory Report Ordering Provider Test Date Status LUIS ARMANDO CROSS 02/01/2021 05:30:00 Final Observation Date Value Abnormality Reference (Units ) Status BUN 02/01/2021 05:30:00 15 6-20 (mg/dL) Final Creatinine 02/01/2021 05:30:00 0.7 0.5-1.0 (mg/dL) Final Glomerular filtration rate/1.73 sq M.predicted [Volume Rate/Area] in Serum, Plasma or Blood by Creatinine-based formula (CKD-EPI) 02/01/2021 05:30:00 >90.0 >=60.0 (mL/min) Final Performing Location [facility] [place] [address] [place] [address]
--- OUTSIDE RECORDS SUMMARY | 2023-05-10 21:16 | External Medical Summary ---
Author Name Unknown Address Unknown Organization K01:LABORATORY [facility] - [address] [place] [address] Laboratory Report Ordering Provider Test Date Status JODY PLUMMER 01/31/2021 23:22:00 Final Observation Date Value Abnormality Reference (Units ) Status CK-MB 01/31/2021 23:22:00 1.7 0.0-4.3 (n g/mL) Final Performing Location [facility] - [address] [place] [address]
--- OUTSIDE RECORDS SUMMARY | 2023-05-10 21:16 | External Medical Summary ---
Author Name Unknown Address Unknown Organization : Laboratory Report Ordering Provider Test Date Status LUIS ARMANDO CROSS 02/01/2021 21:20:43 Final Observation Date Value Abnormality Reference (Units ) Status Glucose Point of Care 02/01/2021 21:20:43 249 Above high normal 70-120 (mg/dL) Final Performing Location
--- OUTSIDE RECORDS SUMMARY | 2023-05-10 21:16 | External Medical Summary ---
Author Name Unknown Address Unknown Organization K01:LABORATORY [facility] [place] - [address] [place] [address] Laboratory Report Ordering Provider Test Date Status URIELSHERWIN 02/03/2021 17:16:00 Final Observation Date Value Abnormality Reference (Units ) Status Lipase 02/03/2021 17:16:00 22 13-60 (U/L ) Final Performing Location [facility] - [address] [place] [address]
--- OUTSIDE RECORDS SUMMARY | 2023-05-10 21:16 | External Medical Summary ---
Author Name Unknown Address Unknown Organization K01:[place] [facility] [place] [address] [place] [address] Laboratory Report Ordering Provider Test Date Status SHERWIN TREVINO 02/03/2021 17:16:00 Final Observation Date Value Abnormality Reference (Units ) Status WBC, Total 02/03/2021 17:16:00 5.34 4.00-10.8 0 (K/uL) Final RBC 02/03/2021 17:16:00 4.03 3.85-5.15 (M/uL) Final Hemoglobin 02/03/2021 17:16:00 12.5 12.0-15.3 (g/dL) Final HCT 02/03/2021 17:16:00 39.5 36.0-45.2 (%) Final MCV 02/03/2021 17:16:00 98.0 Above high normal 81 .5-97.5 (fL) Final MCH 02/03/2021 17:16:00 31.0 27.0-34.0 (pg) Final MCHC 02/03/2021 17:16:00 31.6 Below low normal 32. 0-36.0 (g/dL) Final RDW 02/03/2021 17:16:00 23.9 Above high normal 11 .5-15.5 (%) Final MPV 02/03/2021 17:16:00 Final Performing Location [facility] [place] [address] [place] [address]
--- OUTSIDE RECORDS SUMMARY | 2023-05-10 21:16 | External Medical Summary ---
Author Name Unknown Address Unknown Organization : Laboratory Report Ordering Provider Test Date Status LUIS ARMNADO CROSS 02/02/2021 11:31:27 Final Observation Date Value Abnormality Reference (Units ) Status Glucose Point of Care 02/02/2021 11:31:27 287 Above high normal 70-120 (mg/dL) Final Performing Location
--- OUTSIDE RECORDS SUMMARY | 2023-05-10 21:16 | External Medical Summary ---
Author Name Unknown Address Unknown Organization K01:[place] [place] [address] [place] [address] Laboratory Report Ordering Provider Test Date Status AIMECARMEL 01/30/2021 21:01:00 Final Observation Date Value Abnormality Reference (Units ) Status BUN 01/30/2021 21:01:00 11 6-20 (mg/dL) Final Creatinine 01/30/2021 21:01:00 0.6 0.5-1.0 (mg/dL) Final Glomerular filtration rate/1.73 sq M.predicted [Volume Rate/Area] in Serum, Plasma or Blood by Creatinine-based formula (CKD-EPI) 01/30/2021 21:01:00 >90.0 >=60.0 (mL/min) Final Performing Location [facility] [place] [address] [place] [address]
--- OUTSIDE RECORDS SUMMARY | 2023-05-10 21:16 | External Medical Summary ---
Author Name Unknown Address Unknown Organization K01:[place] [facility] [place] [address] [place] [address] Laboratory Report Ordering Provider Test Date Status MIREILLE BOSE 01/30/2021 22:01:00 Final Observation Date Value Abnormality Reference (Units ) Status Troponin T 01/30/2021 22:01:00 6 <=14 (ng/ L) Final Performing Location [facility] - [address] [place] [address]
--- OUTSIDE RECORDS SUMMARY | 2023-05-10 21:16 | External Medical Summary ---
Author Name Unknown Address Unknown Organization : Laboratory Report Ordering Provider Test Date Status LUIS ARMANDO CROSS 01/31/2021 17:50:43 Final Observation Date Value Abnormality Reference (Units ) Status Glucose Point of Care 01/31/2021 17:50:43 262 Above high normal 70-120 (mg/dL) Final Performing Location
--- OUTSIDE RECORDS SUMMARY | 2023-05-10 21:16 | External Medical Summary ---
Author Name Unknown Address Unknown Organization : Laboratory Report Ordering Provider Test Date Status LUIS ARMANDO CROSS 02/01/2021 16:19:31 Final Observation Date Value Abnormality Reference (Units ) Status Glucose Point of Care 02/01/2021 16:19:31 262 Above high normal 70-120 (mg/dL) Final Performing Location
--- OUTSIDE RECORDS SUMMARY | 2023-05-10 21:16 | External Medical Summary ---
Author Name Unknown Address Unknown Organization : Laboratory Report Ordering Provider Test Date Status LUIS ARMANDO CROSS 02/02/2021 05:46:15 Final Observation Date Value Abnormality Reference (Units ) Status Glucose Point of Care 02/02/2021 05:46:15 147 Above high normal 70-120 (mg/dL) Final Performing Location
--- OUTSIDE RECORDS SUMMARY | 2023-05-10 21:16 | External Medical Summary ---
Author Name Unknown Address Unknown Organization : Laboratory Report Ordering Provider Test Date Status LUIS ARMANDO CROSS 02/01/2021 11:42:49 Final Observation Date Value Abnormality Reference (Units ) Status Glucose Point of Care 02/01/2021 11:42:49 222 Above high normal 70-120 (mg/dL) Final Performing Location
--- OUTSIDE RECORDS SUMMARY | 2023-05-10 21:16 | External Medical Summary ---
Author Name Unknown Address Unknown Organization K01:[place] [facility] [place] [address] [place] [address] Laboratory Report Ordering Provider Test Date Status LUIS ARMANDO CROSS 02/02/2021 06:27:00 Final Observation Date Value Abnormality Reference (Units ) Status WBC, Total 02/02/2021 06:27:00 4.23 4.00-10.8 0 (K/uL) Final RBC 02/02/2021 06:27:00 3.78 Below low normal 3.8 5-5.15 (M/uL) Final Hemoglobin 02/02/2021 06:27:00 11.3 Below low normal 12 .0-15.3 (g/dL) Final HCT 02/02/2021 06:27:00 35.3 Below low normal 36. 0-45.2 (%) Final MCV 02/02/2021 06:27:00 93.4 81.5-97.5 (fL) Final MCH 02/02/2021 06:27:00 29.9 27.0-34.0 (pg) Final MCHC 02/02/2021 06:27:00 32.0 32.0-36.0 (g/dL) Final RDW 02/02/2021 06:27:00 23.8 Above high normal 11 .5-15.5 (%) Final MPV 02/02/2021 06:27:00 Final Performing Location [place] [facility] [place] [address] [place] [address]
--- OUTSIDE RECORDS SUMMARY | 2023-05-10 21:16 | External Medical Summary ---
Author Name Unknown Address Unknown Organization : Laboratory Report Ordering Provider Test Date Status LUIS ARMANDO CROSS 01/31/2021 12:17:13 Final Observation Date Value Abnormality Reference (Units ) Status Glucose Point of Care 01/31/2021 12:17:13 274 Above high normal 70-120 (mg/dL) Final Performing Location
--- OUTSIDE RECORDS SUMMARY | 2023-05-10 21:16 | External Medical Summary ---
Author Name Unknown Address Unknown Organization K01:[place] [facility] [place] [address] [place] [address] Laboratory Report Ordering Provider Test Date Status UYEN SHUKLA JR 01/31/2021 05:17:00 Final Observation Date Value Abnormality Reference (Units ) Status PT 01/31/2021 05:17:00 15.7 Above high normal 11 .5-14.6 (seconds) Final INR 01/31/2021 05:17:00 1.23 Above high normal 0. 84-1.14 Final Performing Location [place] [facility] [place] [address] [place] [address]
--- OUTSIDE RECORDS SUMMARY | 2023-05-10 21:16 | External Medical Summary ---
Author Name Unknown Address Unknown Organization : Laboratory Report Ordering Provider Test Date Status LUIS ARMANDO CROSS 01/31/2021 21:04:28 Final Observation Date Value Abnormality Reference (Units ) Status Glucose Point of Care 01/31/2021 21:04:28 192 Above high normal 70-120 (mg/dL) Final Performing Location
--- OUTSIDE RECORDS SUMMARY | 2023-05-10 21:16 | External Medical Summary ---
Author Name Unknown Address Unknown Organization K01:[facility]ATORY [facility] [place] - [address] [place] [address] Laboratory Report Ordering Provider Test Date Status LUIS ARMANDO CROSS 02/02/2021 06:27:00 Final Observation Date Value Abnormality Reference (Units ) Status BUN 02/02/2021 06:27:00 15 6-20 (mg/dL) Final Creatinine 02/02/2021 06:27:00 0.6 0.5-1.0 (mg/dL) Final Glomerular filtration rate/1.73 sq M.predicted [Volume Rate/Area] in Serum, Plasma or Blood by Creatinine-based formula (CKD-EPI) 02/02/2021 06:27:00 >90.0 >=60.0 (mL/min) Final Performing Location LABORATORY [facility] [place] - [address] [place] [address]
--- OUTSIDE RECORDS SUMMARY | 2023-05-10 21:16 | External Medical Summary ---
Author Name Unknown Address Unknown Organization K01:LABORATORY [facility] [place] - [address] [place] [address] Laboratory Report Ordering Provider Test Date Status RHETT SALOMON 01/30/2021 21:01:00 Final Observation Date Value Abnormality Reference (Units ) Status WBC, Total 01/30/2021 21:01:00 4.21 4.00-10.8 0 (K/uL) Final RBC 01/30/2021 21:01:00 3.95 3.85-5.15 (M/uL) Final Hemoglobin 01/30/2021 21:01:00 11.8 Below low normal 12 .0-15.3 (g/dL) Final HCT 01/30/2021 21:01:00 37.2 36.0-45.2 (%) Final MCV 01/30/2021 21:01:00 94.2 81.5-97.5 (fL) Final MCH 01/30/2021 21:01:00 29.9 27.0-34.0 (pg) Final MCHC 01/30/2021 21:01:00 31.7 Below low normal 32. 0-36.0 (g/dL) Final RDW 01/30/2021 21:01:00 24.0 Above high normal 11 .5-15.5 (%) Final MPV 01/30/2021 21:01:00 Final Performing Location LABORATORY [facility] - [address] [place] [address]
--- OUTSIDE RECORDS SUMMARY | 2023-05-10 21:16 | External Medical Summary ---
Author Name Unknown Address Unknown Organization K01:LABORATORY [facility] [place] - [address] [place] [address] Laboratory Report Ordering Provider Test Date Status UYEN SHUKLA JR 01/31/2021 05:17:00 Final Observation Date Value Abnormality Reference (Units ) Status WBC, Total 01/31/2021 05:17:00 4.18 4.00-10.8 0 (K/uL) Final RBC 01/31/2021 05:17:00 3.83 Below low normal 3.8 5-5.15 (M/uL) Final Hemoglobin 01/31/2021 05:17:00 11.7 Below low normal 12 .0-15.3 (g/dL) Final HCT 01/31/2021 05:17:00 37.1 36.0-45.2 (%) Final MCV 01/31/2021 05:17:00 96.9 81.5-97.5 (fL) Final MCH 01/31/2021 05:17:00 30.5 27.0-34.0 (pg) Final MCHC 01/31/2021 05:17:00 31.5 Below low normal 32. 0-36.0 (g/dL) Final RDW 01/31/2021 05:17:00 24.2 Above high normal 11 .5-15.5 (%) Final MPV 01/31/2021 05:17:00 Final Performing Location LABORATORY [facility] - [address] [place] [address]
--- OUTSIDE RECORDS SUMMARY | 2023-05-10 21:16 | External Medical Summary ---
Author Name Unknown Address Unknown Organization K01:LABORATORY [facility] - [address] [place] [address] Laboratory Report Ordering Provider Test Date Status RHETT SALOMON 01/30/2021 21:01:00 Final Observation Date Value Abnormality Reference (Units ) Status Anisocytosis [Presence] in Blood by Light microscopy 01/30/2021 21:01:00 Moderate Abnormal None Seen Final Macrocytes [Presence] in Blood by Light microscopy 01/30/2021 21:01:00 Present Abnormal None Seen Final Ovalocytes [Presence] in Blood by Light microscopy 01/30/2021 21:01:00 Few Abnormal None Seen Final Dacrocytes [Presence] in Blood by Light microscopy 01/30/2021 21:01:00 Few Abnormal None Seen Final Giant platelets [Presence] in Blood by Light microscopy 01/30/2021 21:01:00 Present Abnormal None Seen Final Performing Location LABORATORY [facility] [place] - [address] [place] [address]
--- OUTSIDE RECORDS SUMMARY | 2023-05-10 21:16 | External Medical Summary ---
Author Name Unknown Address Unknown Organization K01:[place] [facility] [place] [address] [facility] [facility] [place] [address] Laboratory Report Ordering Provider Test Date Status RHETT SALOMON 01/30/2021 21:01:00 Final Observation Date Value Abnormality Reference (Units ) Status SYNC LEUKOCYTES IN BLOOD BY AUTOMATED COUNT 01/30/2021 21:01:00 4.21 4.00-10.80 (K/uL) Final Segs 01/30/2021 21:01:00 55.2 40.0-75.0 (%) Final Lymphs % 01/30/2021 21:01:00 23.3 18.0-42.0 (%) Final Monos 01/30/2021 21:01:00 12.4 Above high normal 1.0-11.0 (%) Final Eosinophils 01/30/2021 21:01:00 7.4 Above high normal 0.0-6.0 (%) Final Basos 01/30/2021 21:01:00 1.2 0.0-2.0 (%) Final Immature Granulocyte, Percent 01/30/2021 21:01:00 0.5 0.0-2.0 (%) Final Absolute Segs 01/30/2021 21:01:00 2.33 1.80-7.70 (K/uL) Final Lymphs, absolute 01/30/2021 21:01:00 0.98 Below low normal 1.00-4.80 (K/ul) Final Monos, Abs 01/30/2021 21:01:00 0.52 0.00-1.10 (K/uL) Final Eos, Abs 01/30/2021 21:01:00 0.31 0.00-0.70 (K/uL) Final Basos, Abs 01/30/2021 21:01:00 0.05 0.00-0.20 (K/uL) Final Immature Granulocytes, Number 01/30/2021 21:01:00 0.02 0.00-0.20 (K/uL) Final Performing Location [place] [facility] [place] [facility] [address] [facility] [address]
--- OUTSIDE RECORDS SUMMARY | 2023-05-10 21:17 | External Medical Summary ---
Author Name Unknown Address Unknown Organization K01:LABORATORY [facility] [place] - [address] [place] [address] Laboratory Report Ordering Provider Test Date Status RHETT SALOMON 01/30/2021 21:01:00 Final Observation Date Value Abnormality Reference (Units ) Status Troponin T 01/30/2021 21:01:00 7 <=14 (ng/ L) Final Performing Location [facility] - [address] [place] [address]
--- OUTSIDE RECORDS SUMMARY | 2023-05-10 21:17 | External Medical Summary | Summary of Care ---
Author Name Unknown Organization [place] [address] Care Team Providers Care Client Services Manager Name Role Phone Alexandra Caceres DO Primary Care Provider [phone] Reason for Visit * Reason Onset Date Comments Advice 01/22/2021 Encounter Details Date Type Department Care Team Description 01/22/2021 Telephone [place] [address] [place] [address] Alexandra Caceres DO [address] [place] [address] Advice Allergies Active Allergy Reactions Severity Noted Date Comments Adhesive Tape Itching 04/29/2020 Penicillins Rash 02/12/2008 Perflutren Protein A Microsph 2019 Definity-lower back pain documented as of this encounter (statuses as of 01/22/2021) Medications Medication Sig Dispensed Refills Start Date [...] 120 Vial 11 10/02/2019 Active nystatin (NYSTOP) 282210 UNIT/GM powder Apply topically to affected area [...] 60 Each 3 07/27/2020 Active Dexcom G6 Document Design Specialist Device Use as directed. To test [...] Strip 3 10/29/2020 Active OneTouch Delica Plus [id number] TESTING once daily 100 Each 3 10/29/2020 [...] THE EVENING 180 Cap 5 11/02/2020 Active Trulicity 3 MG/0.5ML Subcutaneous Solution Pen-injector (Dulaglutide) Inject one pen (3mg) under the skin once a week 6 mL 3 11/02/2020 Active Linzess 290 MCG Oral [...] daily; E11.42 400 Each 3 12/05/2020 Active Insulin Aspart 100 UNIT/ML Subcutaneous Solution (NovoLOG) Inject 28 units under the skin before breakfast, 32 units before lunch, and 32 units before supper 105 mL 3 12/14/2020 Active Fluticasone Propionate 50 MCG/ACT Nasal Suspension (Flonase)Indications: Sinus congestion USE 2 SPRAYS IN EACH NOSTRIL ONCE DAILY as directed 16 g 5 12/23/2020 Active NovoLOG FlexPen 100 UNIT/ML Subcutaneous Solution Pen-injector 0 12/15/2020 Act belinda Escitalopram Oxalate 20 MG Oral Tablet (Lexapro)Indications: Recurrent major depressive disorder, in partial remission (HCC) TAKE 1 TABLET BY MOUTH ONCE DAILY 90 Tab 3 12/28/2020 Active Furosemide 20 MG Oral Tablet (Lasix)Indications:Lo calized edema,Venous stasis dermatitis of both lower extremities TAKE 1 TABLET BY MOUTH EVERY DAY NEEDED for edema 90 Tab 3 12/28/2020 Active Pantoprazole Sodium 20 MG Oral Tablet Delayed Release (Protonix)Indications :NAFLD (nonalcoholic fatty liver disease),Other cirrhosis of liver (HCC) TAKE 2 TABLETS BY MOUTH TWICE DAILY 180 Tab 1 12/29/2020 Active Atorvastatin Calcium 40 MG Oral Tablet (Lipitor)Indications: Dyslipidemia, goal LDL below 70 TAKE 1 TABLET BY MOUTH AT BEDTIME 90 Tab 1 01/22/2021 Active Lantus SoloStar 100 UNIT/ML Subcutaneous Solution Pen-injector (Insulin Glargine)Indications: Type 2 diabetes mellitus with hemoglobin A1c goal of less than 7.0% ([facility]) inject 25 units under skin at bedtime 30 mL 3 01/22/2021 Active documented as of this encounter (statuses as of 01/22/2021) Active Problems Problem Noted Date Uncontrolled type 2 diabetes mellitus wi th [...] as of this encounter (statuses as of 01/22/2021) Resolved Problems Problem Noted Date Resolved Date [...] pain 01/24/2012 01/17/2017 Genetic Sleep Disorder Research Other*[id number] 05/13/2011 04/07/2016 Obstructive sleep apnea 01/18/2011 12/27/19 [...] as of this encounter (statuses as of 01/22/2021) Immunizations Name Administration Dates Next Due COVID-19 [...] deaf or do you have serious difficulty hearing? No 07/15/2020 Are you blind or do you have serious difficulty seeing, even when wearing glasses? No 07/15/2020 Do you have serious difficul ty walking or climbing stairs? 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 07/15/2020 Do you have difficulty dress ing or bathing? 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-weekend caregiver helps 07/15/2020 Because of a physical, menta l, or emotional condition, do you have difficulty doing errands alone such as visiting a doctor s office or shopping? (15 years old or older) Yes-alwats accompanied and uses a motorized wheelchair 07/15/2020 Cognitive Status Response Date of Assessm ent Because of a physical, menta l, or emotional condition, do you have serious difficulty concentrating, remembering, or making decisions? (5 years old or older No 07/15/2020 documented as of this encounter Miscellaneous Notes * Telephone Encounter - Dominique Franco OSA - 01/22/2021 12:59 PM EDT Reason for call: Does the patient have any of the following symptoms other Red Flag symptom? Send as HP to [facility]. Symptoms include blood sugar 327 Caller: patient, please call back @ [phone] Call was warm transfer to extract wringer line documented in this encounter Plan of Treatment Upcoming Encounters Date Type Specialty Care Team Description 01/25/2021 Office Visit Pharmacy [facility] [address], [place] [id number] 02/26/2021 Immunization/Injection Hematology Oncolog y Nurse, Med [address] [place] [address] [phone] 03/03/2021 Nutrition Services Gastroenterology Melissa Omalley RDN [address] [place] [address] [phone] 03/04/2021 Office Visit Family Medicine Alexandra Caceres, DO [address], [place] [id number] 04/16/2021 Office Visit Podiatry Prakash Martino DPM [address] [place] [address] 04/29/2021 Appointment Radiology 07/06/2021 Office Visit Hematology Oncology Tono Sanchez MD [address] [place] [address] [phone] 07/27/2021 Office Visit Gastroenterology Lyssa Stout CRNP [address] [place] [address] [phone] 09/09/2021 Imaging Radiology Health Maintenance Due Date [...] of this encounter Implants Implanted Type Area Cost Control Analyst Device Identifier Shelf Expiration Date Model / Serial / Lot [employer] Sure Clip Implanted:Qty: 2 on 06/03/2020 by Janis Hatch DO at OR [facility] Clip N/A: Colon 04/21/2022 [id number] 35-C-R / / [id number] documented as of this encounter Advance Directives Documents on File Type Date Recorded 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 Full Code 06/03/2020 1:25 PM 06/03/2020 8:35 PM This order reflects the patients wishes and were consensually agreed upon. Discussion of Advance Directives occurred with: Not Discussed Healthcare Agents on File Name Relationship Healthcare Agent [facility] p Communication Syed Bustos Spouse Emergency Contact
--- OUTSIDE RECORDS SUMMARY | 2023-05-10 21:17 | External Medical Summary ---
Author Name Unknown Address Unknown Organization K01:LABORATORY [facility] [place] - [address] [place] [address] Laboratory Report Ordering Provider Test Date Status RHETT SALOMON 01/30/2021 21:01:00 Final Observation Date Value Abnormality Reference (Units ) Status BNP, Pro-hormone 01/30/2021 21:01:00 36 <30 0 (pg/mL) Final Performing Location [facility] - [address] [place] [address]
--- OUTSIDE RECORDS SUMMARY | 2023-05-10 21:17 | External Medical Summary | Summary of Care ---
Author Name Unknown Organization [place] [address] Care Team Providers Care Oracle Fusion Middleware Developer Name Role Phone Alexandra Caceres Primary Care Provider [phone] Reason for Visit * Reason Comments Dosage Adjustment In Person (Anticoag Cl inic) Diabetes Follow-Up Encounter Details Date Type Department Care Team Description 01/25/2021 Office Visit Pharmacy, [place] [address] [place] [address] [facility] [address] [place] [address] [phone] Type 2 diabetes mellitus with hemoglobin A1c goal of less than 7.0% ([facility])* Allergies Active Allergy Reactions Severity Noted Date Comments Adhesive Tape Itching 04/29/2020 Penicillins Rash 02/12/2008 Perflutren Protein A Microsph 2019 Definity-lower back pain documented as of this encounter (statuses as of 01/25/2021) Medications Medication Sig Dispensed Refills Start Date [...] 120 Vial 11 10/02/2019 Active nystatin (NYSTOP) 717631 UNIT/GM powder Apply topically to affected area [...] 11/19/2019 Active potassium chloride ER 10 MEQ TBCRIndications:Hy pokalemia TAKE 1 TABLET BY MOUTH ONCE DAILY WITH FOOD 90 Tab 3 05/25/2020 Active silver sulfadiazine (SILVADENE) 1 % cream Apply topically to affected area daily. Apply to right great toe 50 g 0 05/26/2020 Active famotidine (PEPCID) 20 MG Tablet Take 1 Tab by mouth every night at bedtime. 34 Tab 0 05/29/2020 Active Ipratropium-Albute rol 0.5-2.5 (3) MG/3ML Inhalation Solution (DUONEB)Indication s:Moderate persistent asthma with acute exacerbation Inhale 3 mL via nebulizer 4 times a day. 3 mL 10 07/27/2020 Active Fluticasone-Salmet jayme 250-50 MCG/DOSE Inhalation Aerosol Powder Breath Activated (Advair Diskus)Indications :Moderate persistent asthma with acute exacerbation Inhale 1 Puff by mouth 2 times a day. 60 Each 3 07/27/2020 Active Dexcom G6 Physician Office Clin Asst Device Use as directed. To test blood [...] Strip 3 10/29/2020 Active OneTouch Delica Plus [id number] TESTING once daily 100 Each 3 10/29/2020 [...] 12/28/2020 Active Furosemide 20 MG Oral Tablet (Lasix)Indications :Localized [...] Active Atorvastatin Calcium 40 MG Oral Tablet (Lipitor)Indicatio [...] before supper 105 mL 3 01/25/2021 Active Trulicity 3 MG/0.5ML Subcutaneous Solution Pen-injector (Dulaglutide) Inject one pen (3mg) under the skin once a week 6 mL 3 11/02/2020 1 Discontinued Insulin Aspart 100 UNIT/ML Subcutaneous Solution (NovoLOG) Inject 28 units under the skin before breakfast, 32 units before lunch, and 32 units before supper 105 mL 3 12/14/2020 1 Discontinued NovoLOG FlexPen 100 UNIT/ML Subcutaneous Solution Pen-injector 0 12/15/2020 1 Discontinued Lantus SoloStar 100 UNIT/ML Subcutaneous Solution Pen-injector (Insulin Glargine)Indicatio ns:Type 2 diabetes mellitus with hemoglobin A1c goal of less than 7.0% (HCC) inject 25 units under skin at bedtime 30 mL 3 01/22/2021 1 Discontinued documented as of this encounter (statuses as of 01/25/2021) Active Problems Problem Noted Date Uncontrolled type [...] as of this encounter (statuses as of 01/25/2021) Resolved Problems Problem Noted Date Resolved Date [...] pain 01/24/2012 01/17/2017 Genetic Sleep Disorder Research Other*[id number] 05/13/2011 04/07/2016 Obstructive sleep apnea 01/18/2011 12/27/19 [...] as of this encounter (statuses as of 01/25/2021) Immunizations Name Administration Dates Next Due COVID-19 [...] t, with Preserve, 3yr & Above, Split 05/22/2015,05/29/2014,07/25/2013,05/12,06/02/2011,06/01/2010,06/04/20 09,08/18/2008 05/22/2016 TDAP (age 10 and [...] or bathing? 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-embedded case manager helps 07/15/2020 Because of a physical, menta [...] No 07/15/2020 documented as of this encounter Progress Notes * Indira Hudson, [facility] - 01/25/2021 2:34 PM EDT Images from the original note were not included. Medication Therapy Disease Management [facility] - Diabetes Management Progress Note Shaina Bustos, identified by name and date of , is a 65 year old female being seen for diabetesmanagement/education. Patient presents for return diabetic visit. DIABETES: Current diabetic medications: INCREASE: Novolog, Inject 28 units before breakfast, 32 units before lunch, and 32 units before supper Lantus pen, 25 units daily Metformin 1000mg, 1 tablet twice a day Trulicity 3mg SQ weekly GFR >60 as of 09/24/20 Lifestyle: Diet: unchanged Glucose Review/SMBG: Dexcom Hypoglycemia: Does your blood sugar go below 70 mg/dL? No Hyperglycemia symptoms present: none Lab Results Component Value Date/Time HEMOGLOBIN A1C - [facility] 6.9 (H) 11/30/2020 11:32 AM HEMOGLOBIN A1C - [facility] 9.9 (H) 07/06/2020 05:24 AM HEMOGLOBIN A1C - [facility] 11.0 (H) 05/26/2020 04:44 AM HEMOGLOBIN A1C - [facility] 9.9 (H) 04/28/2020 04:37 PM Lab Results Component Value Date/Time ESTIMATED GLOMERULAR FILTRATION RATE - [facility] >90.0 11/19/2020 10:05 PM ESTIMATED GLOMERULAR FILTRATION RATE - [facility] [...] Component Value Date/Time CREATININE - [facility] 0.6 11/19/2020 10:05 PM CREATININE - [facility] 0.6 09/24/2020 05:16 PM CREATININE - [facility] 0.6 09/23/2020 02:36 PM CREATININE - [facility] 0.7 08/21/2020 04:35 PM No results found for: HEMOGLOBIN A1C POCT Lab Results Component Value Date/Time CREATININE - [facility] 0.6 11/19/2020 10:05 PM CREATININE - [facility] 0.6 09/24/2020 05:16 [...] goal BP Readings from Last 3 Encounters: 01/21/21 114/60 01/01/21 134/83 01/01/21 124/65 HYPERLIPIDEMIA: Patient is taking moderate or high intensity statin: yes HEALTH MAINTENANCE REVIEW: Health Maintenance Due Topic Date Due DIABETES-EYE EXAM 06/12/2019 DIABETES-URINE MICROALBUMIN EVERY 12 MONTHS 01/12/2020 Dexa Scan Never done Zoster Vaccines (3 of 3) 06/23/2020 DIABETES-FOOT EXAM 11/06/2020 COVID-19 Vaccine (2 - Moderna 2-dose series) 12/21/2020 ASSESSMENT & PLAN: ICD-10-CM 1. Type 2 diabetes mellitus with hemoglobin A1c goal of less than 7.0% (HCC) E11.9 BG Readings Reviewed Dexcom download. Blood sugars uncontrolled. A1C not reflective of BG readings. Per chart review, hemoglobin on 11/19/20 was 7.6. Patient is following with provider regarding this (saw heme/onc on 01/01- iron deficiency anemia in in the setting of cirrhosis of liver with portal Hypertension and splenomegaly causing pancytopenia). Might be reason for lower A1C as A1C and BG do not seem to correlate. BG Readings Blood sugars uncontrolled. Not covering meals and rising overnight. Medications Reviewed current regimen, patient is adherent to regimen. Tolerating. Diet, Exercise, Lifestyle No significant lifestyle changes since last visit. Discussed with patient to limit carbs and add more protein to carbs. Will work on this. Discussed increasing Trulicity. Patient had about 2 to 3 months of current dose but will increase dose once finishes current supply. Will also increase Lantus and Novolog. Patient to contact clinic with any issues or if BG does not improve with these changes. Patient is agreeable to SMBG 4 time(s) daily. Patient aware to contact clinic if any hypoglycemia before next visit. MEDICATION CHANGES: Yes see below Diabetic Medications: INCREASE: Novolog, Inject 32 units before breakfast, 36 units before lunch, and 36 units before supper INCREASE: Lantus pen, 30 units daily Metformin 1000mg, 1 tablet twice a day INCREASE:Trulicity 4.5mg SQ weekly GFR >90 as of 11/19/20 HEALTH MAINTENANCE INTERVENTIONS: Labs: due for urine microalbumin- will get with next set of labs Foot Exam: due- unable to address due to time constraints of visit Eye Exam: due- unable to address due to time constraints of visit FOLLOW UP: Return to clinic in 6 weeks Next Office Visit: 03/08/2021 Scheduled Provider(s): [facility] [place] Hudson [facility] Clinical Pharmacist - Web Development Intern Medication Therapy Management Clinic 01/25/2021, 2:34 PM documented in this encounter Plan of Treatment Upcoming Encounters Date Type Specialty Care Team Description 02/26/2021 Immunization/Injection [facility]ematology Oncolog y [facility], [facility] [address] [facility] [address] [phone] 03/03/2021 Nutrition Services Gastroenterology Melissa Omalley, [place] [address] [place] [address] [phone] 03/04/2021 Office Visit Family Medicine Alexandra Caceres, [address] [place] [address] [phone] 03/08/2021 Office Visit Pharmacy [facility] [address] [place] [address] [phone] 04/16/2021 Office Visit Podiatry Prakash Martino, [facility] [address] [place] [address] 04/29/2021 Appointment Radiology 07/06/2021 Office Visit Hematology Oncology Tono Sanchez MD [address] [facility], [place] [address] [phone] 07/27/2021 Office Visit Gastroenterology Lyssa Stout CRNP [address] [facility] [place] [address] [phone] 09/09/2021 Imaging Radiology Health Maintenance Due Date [...] encounter Implants Implanted Type Area Customer Care Team Coach Device Identifier Shelf Expiration Date Model / Serial / Lot Microtech Sure Clip Implanted:Qty: 2 on 06/03/2020 by Janis Hatch DO at OR [facility] Clip N/A: Colon 04/21/2022 [facility]-F-26-2 35-C-R / / [id number] documented as of this encounter Visit Diagnoses Diagnosis Type 2 diabetes mellitus with hemoglobin A1c goal of less than 7.0% (HCC)- Primary documented in this encounter Advance Directives Documents on File Type Date Recorded 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
--- OUTSIDE RECORDS SUMMARY | 2023-05-10 21:18 | External Medical Summary | Summary of Care ---
Author Name Unknown Organization [place] [address] Care Team Providers Care Milk House Worker Name Role Phone Maikel Caceres Primary Care Provider Reason for Visit * Reason Comments eRx-Medication Refill Encounter Details Date Type Department Care Team Description 01/22/2021 Refill [place] [address] [place] [address] Rajwinder Carter DO [address] [place] [address] Type 2 diabetes mellitus with hemoglobin A1c goal of less than 7.0% ([facility]) Allergies Active Allergy Reactions Severity Noted Date [...] 120 Vial 11 10/02/2019 Active nystatin (NYSTOP) 928845 UNIT/GM powder Apply topically to affected area [...] 60 Each 3 07/27/2020 Active Dexcom G6 Building Estimator Device Use as directed. To test [...] Strip 3 10/29/2020 Active OneTouch Delica Plus [id number] TESTING once daily 100 Each 3 10/29/2020 [...] 100 UNIT/ML Subcutaneous Solution Pen-injector 0 12/15/2020 Active Escitalopram Oxalate 20 MG Oral Tablet [...] at bedtime 30 mL 3 01/22/2021 Active Lantus SoloStar 100 UNIT/ML Subcutaneous Solution Pen-injector (insulin glargine)Indicatio ns:Type 2 diabetes mellitus with hemoglobin A1c goal of less than 7.0% (HCC) Inject 25 units under the skin once a day 30 mL 3 08/31/2020 1 Discontinued documented as of this encounter [...] pain 01/24/2012 01/17/2017 Genetic Sleep Disorder Research Other*[id number] 05/13/2011 04/07/2016 Obstructive sleep apnea 01/18/2011 12/27/19 [...] or bathing? 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-seat nailer helps 07/15/2020 Because of a physical, menta [...] Notes * Telephone Encounter - Bunny Adair [facility] - 01/22/2021 12:21 PM EDT Signed Prescriptions: Disp Refills Lantus SoloStar 100 UNIT/ML Subcutaneous S*30 mL 3 Sig: inject 25 units under skin at bedtimeAuthorizing Provider: MAIKEL CACERES User: BUNNY ADAIR * Telephone Encounter - Serg Martinez [facility] - 01/22/2021 12:11 PM EDT Pending Prescriptions: Disp Refills Lantus SoloStar 100 UNIT/ML Subcutaneous *15 mL 0 Sig: inject 25 units under skin at bedtime * Telephone Encounter - Serg Martinez [facility] - 01/22/2021 12:09 PM EDT Pending Prescriptions: Disp Refills Lantus SoloStar 100 UNIT/ML Subcutaneous *15 mL 0 Sig: inject 24 units under skin at bedtime Last Office/Telemedicine Visit: 12/23/2020 Next Office Visit: 03/04/2021 Scheduled Provider(s): Maikel Caceres, DO If no future appointments scheduled, and last appointment is greater than a year ago, please schedule patient for a follow-up appointment Last date the medication was ordered: Pharmacy: [facility] [id number] Is this request for a controlled substance?No Urine Drug Screen:No results found. However, due to the size of the patient record, not all encounters were searched. Please check Results Review for a complete set of results. Patient Phone Numbers Labs: Lab Results Component Value Date/Time CREAT 0.6 11/19/2020 10:05 PM CREAT 0.6 09/24/2020 05:16 PM POTASSIUM 3.9 11/19/2020 10:05 PM POTASSIUM 4.0 09/24/2020 05:16 PM TSH 0.69 07/14/2020 04:24 PM LDLCALC 43 04/05/2019 06:40 AM LDLDIRECT 46 02/21/2020 11:43 AM ALT 19 11/19/2020 10:05 PM ALT 23 08/21/2020 04:35 PM HGBA1C 6.9 (H) 11/30/2020 11:32 AM HGBA1C 9.9 (H) 07/06/2020 05:24 AM documented in this encounter Plan of Treatment Upcoming Encounters Date Type Specialty Care Team Description 01/25/2021 Office Visit Pharmacy [facility] [address] [place] [address] [place] [address] [phone] 02/26/2021 Immunization/Injection Hematology Oncolog y Nurse, Med 4 [address] [facility] [place] [address] [phone] 03/03/2021 Nutrition Services Gastroenterology Melissa Omalley, RDN [address] [facility] [place] [address] [phone] 03/04/2021 Office Visit Family Medicine Maikel Caceres DO [address] [place] [address] [phone] 04/16/2021 Office Visit Podiatry Prakash Martino, [place] [address] [place] [address] 04/29/2021 Appointment Radiology 07/06/2021 Office Visit Hematology Oncology Tono Sanchez MD [address] [facility], [place] [address] 07/27/2021 Office Visit Gastroenterology Lyssa Stout CRNP [address] [place] [address] [phone] 09/09/2021 Imaging Radiology Health Maintenance Due Date [...] of this encounter Implants Implanted Type Area Spindle Frame Carver Device Identifier Shelf Expiration Date Model / Serial / Lot Microtech Sure Clip Implanted:Qty: 2 on 06/03/2020 by Janis Hatch DO at OR [facility] Clip N/A: Colon 04/21/2022 [facility]-F-26-2 35-C-R / / [id number] documented as of this encounter Visit Diagnoses Diagnosis Type 2 diabetes mellitus with hemoglobin A1c goal of less than 7.0% (HCC) documented in this encounter Advance Directives Documents on File Type Date Recorded Patient Technical Support Representative Expl anation Advanced Directive service a [...] Code 08/05/2020 2:38 PM 08/05/2020 7:42 PM Th is order reflects the patients wishes and were [...] Name Relationship Healthcare Agent Relationshi p Communication Seyd Bustos Spouse Emergency Contact
--- OUTSIDE RECORDS SUMMARY | 2023-05-10 21:19 | External Medical Summary | Summary of Care ---
Author Name Unknown Organization [place] [address] Care Team Providers Care Basket Filler Name Role Phone Maikel Caceres DO Primary Care Provider Reason for Visit * Reason Comments eRx-Medication Refill Encounter Details Date Type Department Care Team Description 01/22/2021 Refill [place] [address] [place] [address] Maikel Caceres DO [place] [address] Dyslipidemia, goal LDL below 70 Allergies Active [...] 120 Vial 11 10/02/2019 Active nystatin (NYSTOP) 362164 UNIT/GM powder Apply topically to affected area [...] 60 Each 3 07/27/2020 Active Dexcom G6 Household Refrigeration Mechanic Device Use as directed. To test [...] Strip 3 10/29/2020 Active OneTouch Delica Plus [id number] TESTING once daily 100 Each 3 10/29/2020 [...] AT BEDTIME 90 Tab 1 01/22/2021 Active Atorvastatin Calcium 40 MG Oral Tablet (LIPITOR)Indicatio ns:Dyslipidemia, goal LDL below 70 TAKE 1 TABLET BY MOUTH AT BEDTIME 90 Tab 1 07/16/2020 1 Discontinued Lantus SoloStar 100 UNIT/ML Subcutaneous Solution Pen-injector (insulin glargine)Indicatio ns:Type 2 diabetes mellitus with hemoglobin A1c goal of less than 7.0% ([facility] [place] [facility]) Inject 25 units under the skin once [...] pain 01/24/2012 01/17/2017 Genetic Sleep Disorder Research Other*[id number] 05/13/2011 04/07/2016 Obstructive sleep apnea 01/18/2011 12/27/19 [...] or bathing? 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-or director helps 07/15/2020 Because of a physical, menta [...] Notes * Telephone Encounter - Serg Martinez [facility] - 01/22/2021 12:08 PM EDT Signed Prescriptions: Disp Refills Atorvastatin Calcium 40 MG Oral Tablet (Li*90 Tab 1 Sig: TAKE 1 TABLET BY MOUTH AT BEDTIME Authorizing Provider: MAIKEL CACERES User: SERG MARTINEZ------- * Telephone Encounter - Serg Martinez [facility] - 01/22/2021 12:05 PM EDT Pending Prescriptions: Disp Refills Atorvastatin Calcium 40 MG Oral Tablet (L*90 Tab 0 Sig: TAKE 1 TABLET BY MOUTH AT BEDTIME Last Office/Telemedicine Visit: 12/23/2020 Next Office Visit: 03/04/2021 Scheduled Provider(s): Maikel Caceres, If no future appointments scheduled, and last appointment is greater than a year ago, please schedule patient for a follow-up appointment Last date the medication was ordered: Pharmacy: [facility] [id number] Is this request for a controlled [...] Care Team Description 01/25/2021 Office Visit Pharmacy [facility] [address], [place] [address] 02/26/2021 Immunization/Injection Hematology Oncolog y Nurse, Med [address] [place] [address] [phone] 03/03/2021 Nutrition Services Gastroenterology Melissa Omalley, [place] [address] [place] [address] [phone] 03/04/2021 Office Visit Family Medicine Maikel Caceres, DO [address] [place] [address] [phone] 04/16/2021 Office Visit Podiatry Prakash Martino DPM [address] [place] [address] 04/29/2021 Appointment Radiology 07/06/2021 Office Visit Hematology Oncology Tono Sanchez MD [address] [place] [address] [phone] 07/27/2021 Office Visit Gastroenterology Lyssa Stout, ZAK [address] [place] [address] [phone] 09/09/2021 Imaging Radiology Health Maintenance Due Date [...] this encounter Implants Implanted Type Area Senior Unix Administrator Device Identifier Shelf Expiration Date Model / Serial / Lot Microtech Sure Clip Implanted:Qty: 2 on 06/03/2020 by Janis Hatch DO at OR [facility] Clip N/A: Colon 04/21/2022 [facility]-F-26-2 35-C-R / / [id number] documented as of this encounter Visit Diagnoses Diagnosis Dyslipidemia, goal LDL below 70 Other and unspecified hyperlipidemia documented in this encounter Advance Directives Documents on File Type Date Recorded Patient Global Compensation Director Expl anation Advanced Directive service a [...] on File Name Relationship Healthcare Agent [facility] Communication Syed Bustos Spouse Emergency Contact
--- OUTSIDE RECORDS SUMMARY | 2023-05-10 21:19 | External Medical Summary | Summary of Care ---
Author Name Unknown Organization [facility] Address [place] [address] Care Team Providers Care Insurance Sales Producer Name Role Phone CarlosjoseAlexandra mcdonough Primary Care Provider Reason for Referral * Precert (Within 10 days (routine)) Status Reason Specialty Diagnoses / Procedures Referred By Contact Referred To Contact Authorized Radiology Diagnoses Cirrhosis of liver without ascites, unspecified hepatic cirrhosis type (HCC) Procedures CT LIVER 4-PHASE W WO IV CONTRAST - WO ORAL CONT [facility] [address] [facility] [address] Electronically signed by Lyssa CRESPO at Reason for Visit * Reason Comments Follow Up cirrohsis Encounter Details Date Type Department Care Team Description 01/21/2021 Office Visit Gastroenterology, [facility] [address] [place] [address] [facility] [address] [facility] [address] [phone] Cirrhosis of liver without ascites, unspecified hepatic cirrhosis type (HCC)*; Nonalcoholic fatty liver disease; Chronic constipation Allergies Active Allergy Reactions Severity Noted Date Comments Adhesive Tape Itching 04/29/2020 Penicillins Rash 02/12/2008 Perflutren Protein A Microsph 2019 Definity-lower back pain documented as of this encounter (statuses as of 01/21/2021) Medications Medication Sig Dispensed Refills Start Date [...] 120 Vial 11 10/02/2019 Active nystatin (NYSTOP) 768539 UNIT/GM powder Apply topically to affected area [...] at bedtime. 34 Tab 0 05/29/2020 Active Atorvastatin Calcium 40 MG Oral Tablet (LIPITOR)Indications: Dyslipidemia, goal LDL below 70 TAKE 1 TABLET BY MOUTH AT BEDTIME 90 Tab 1 07/16/2020 Active Ipratropium-Albuterol 0.5-2.5 (3) MG/3ML Inhalation Solution (DUONEB)Indications:M oderate persistent asthma with acute exacerbation Inhale 3 mL via nebulizer 4 times a day. 3 mL 10 07/27/2020 Active Fluticasone-Salmetero l 250-50 MCG/DOSE Inhalation Aerosol Powder Breath Activated (Advair Diskus)Indications:Mo derate persistent asthma with acute exacerbation Inhale 1 Puff by mouth 2 times a day. 60 Each 3 07/27/2020 Active Lantus SoloStar 100 UNIT/ML Subcutaneous Solution Pen-injector (insulin glargine)Indications: Type 2 diabetes mellitus with hemoglobin A1c goal of less than 7.0% (HCC) Inject 25 units under the skin once a day 30 mL 3 08/31/2020 Active Dexcom G6 Tack Coverer Device Use as directed. To test [...] Strip 3 10/29/2020 Active OneTouch Delica Plus [id number] TESTING once daily 100 Each 3 10/29/2020 [...] TWICE DAILY 180 Tab 1 12/29/2020 Active documented as of this encounter (statuses as of 01/21/2021) Active Problems Problem Noted Date Uncontrolled type [...] as of this encounter (statuses as of 01/21/2021) Resolved Problems Problem Noted Date Resolved Date [...] pain 01/24/2012 01/17/2017 Genetic Sleep Disorder Research Other*[id number] 05/13/2011 04/07/2016 Obstructive sleep apnea 01/18/2011 12/27/19 [...] as of this encounter (statuses as of 01/21/2021) Immunizations Name Administration Dates Next Due COVID-19 [...] Sign Reading Time Taken Comments Blood Pressure 114/60 01/21/2021 2:19 PM EDT Pulse 70 01/21/2021 2:19 PM EDT Temperature 36.5 C (97.7 F) 01/21/2021 2:19 PM ED T Respiratory Rate 16 01/21/2021 2:19 PM EDT Oxygen Saturation 95% 01/21/2021 2:19 PM EDT Inhaled Oxygen Concentration - [...] or bathing? 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-comparative sociology professor helps 07/15/2020 Because of a physical, menta [...] of this encounter Progress Notes * Lyssa Stout CRNP - 01/21/2021 2:33 PM EDT DATE OF SERVICE: 01/21/21 REFERRING PHYSICIAN: Rajwinder Carter DO CC: F/U NG cirrhosis HPI: 01/21/21: Pt report BRBPR at last BM but had hard stools. Denies abd pain, n/v, cramping. 09/23/20: Pt voices no concerns today. She is getting IV Venofer transfusions. She denies increasedSOB, CP, abd pain, distension. Leg edema same. No GI bleeding symptoms. 07/27/2020 -Shaina Bsutos is 65 yr old female pt w [...] 01/24/2012 Chronic constipation Chronic hypoxemic respiratory failure ([facility]) 04/08/2019 Chronic pain 03/27/2012 Cirrhosis of liver ([facility]) 11/20/2017 DDD (degenerative disc disease), lumbar DM [...] A1c goal of less than 7.0% ([facility]) 09/26/2013 ICD-10 update of inactive term Family History Problem Relation Age of Onset Heart Disorder Father of [place] at age 61 Diabetes Father Heart Disorder Mother of [place] age 72 Cancer None Arthritis None Stroke None Heart Disorder Sister Mi at age 46 Hypertension Sister Mental Disorder None Past Surgical History: Procedure Laterality Date BONE DEBRIDEMENT, FIRST 20 CM2 Right 04/16/2020 DEBRIDEMENT SKIN SUBCUTANEOUS TISSUE MUSCLE AND BONE performed by Josh Vazquez MD at [facility] DELIVERY 04/20/1982 COLONOSCOPY 04/21/2009 repeat in 10 years COLONOSCOPY, DIAGNOSTIC (RECTUM) 10/04/2016 normal bx, repeat 10 yrs/[facility] COLONOSCOPY, DIAGNOSTIC (RECTUM) N/A 06/03/2020 internal hemorrhoids/biopsies show adenomatous polyps/recall 5 years/COLONOSCOPY FLEXIBLE PROXIMAL DIAGNOSTIC performed by Janis Hatch DO at [facility] COLONOSCOPY, DIAGNOSTIC (RECTUM) 03/17/2020 poor prep / [facility] DENTAL SURGERY PROCEDURE NEC wisdom teeth x 4 DILATION AND CURETTAGE (D&C) EGD, FLEXIBLE, DIAGNOSTIC 10/04/2016 gastritis/[facility] EGD, FLEXIBLE, DIAGNOSTIC 01/11/2018 eso varices, retained food, repeat 1 yr/[facility] EGD, FLEXIBLE, DIAGNOSTIC N/A 06/03/2020 severe erosive esophagitis/non-bleeding grade II esophageal varices/gastritis/biopsies show inflammatory changes/repeat 3-4 months/ESOPHAGOGASTRODUODENOSCOPY (EGD), FLEXIBLE, TRANSORAL, DIAGNOSTIC per formed by Janis Hatch DO at [facility] EGD, FLEXIBLE, DIAGNOSTIC 11/27/2019 eso varices, portal hypertensive gastropathy, gastritis / [facility] EGD, FLEXIBLE, DIAGNOSTIC N/A 08/05/2020 large amount of food in stomach/repeat 1.5 years/ESOPHAGOGASTRODUODENOSCOPY (EGD), FLEXIBLE, TRANSORAL, DIAGNOSTIC performed by Janis Hatch DO at [facility] IR VENOUS ACCESS MEDIPORT [...] Current Outpatient Medications Medication Sig Dispense Refill Pantoprazole Sodium 20 MG Oral Tablet Delayed Release (Protonix) TAKE 2 TABLETS BY MOUTH TWICE DAILY 180 Tab 1 Escitalopram Oxalate 20 MG Oral Tablet (Lexapro) TAKE 1 TABLET BY MOUTH ONCE DAILY 90 Tab 3 Furosemide 20 MG Oral Tablet (Lasix) TAKE 1 TABLET BY MOUTH EVERY DAY NEEDED for edema 90 Tab 3 NovoLOG FlexPen 100 UNIT/ML Subcutaneous Solution Pen-injector Fluticasone Propionate 50 MCG/ACT Nasal Suspension (Flonase) USE 2 SPRAYS IN EACH NOSTRIL ONCE DAILY as directed 16 g 5 Insulin Aspart 100 UNIT/ML Subcutaneous Solution (NovoLOG) Inject 28 units under the skin before breakfast, 32 units before lunch, and 32 units before supper 105 mL 3 BD Pen Needle Mini U/F 31G [...] BY MOUTH TWICE DAILY 60 Tab 5 Tamsulosin HCl 0.4 MG Oral Capsule (Flomax) TAKE 1 CAPSULE BY MOUTH ONCE DAILY 90 Cap 3 Trulicity 3 MG/0.5ML Subcutaneous Solution Pen-injector (Dulaglutide) Inject one pen (3mg) under the skin once a week 6 mL 3 OneTouch Delica Plus [id number] TESTING once daily 100 Each 3 OneTouch Verio In Vitro Strip (Glucose Blood) TESTING once daily 100 Strip 3 Lidocaine-Prilocaine 2.5-2.5 % External Cream (Emla) Apply topically to affected area as needed forOther (for port). APPLY TO SKIN OVER MEDIPORT & COVER 1HR PRIOR TO ACCESSING. 30 g 3 Nadolol 20 MG Oral Tablet (CORGARD) One daily 90 Tab 1 Dexcom G6 Tack Coverer Device Use as directed. To test [...] every 90 days. DxE11.9 1 Each 3 Lantus SoloStar 100 UNIT/ML Subcutaneous Solution Pen-injector (insulin glargine) Inject 25 units under the skin once a day 30 mL 3 Fluticasone-Salmeterol 250-50 MCG/DOSE Inhalation Aerosol Powder Breath Activated (Advair Diskus) Inhale 1 Puff by mouth 2 times a day. 60 Each 3 Ipratropium-Albuterol 0.5-2.5 (3) MG/3ML Inhalation Solution (DUONEB) Inhale 3 mL via nebulizer 4 times a day. 3 mL 10 Atorvastatin Calcium 40 MG Oral Tablet (LIPITOR) TAKE 1 TABLET BY MOUTH AT BEDTIME 90 Tab 1 famotidine (PEPCID) 20 MG Tablet Take 1 Tab by mouth every night at bedtime. 34 Tab 0 silver sulfadiazine (SILVADENE) 1 % cream [...] With spacer 16 g 1 nystatin (NYSTOP) 010066 UNIT/GM powder Apply topically to affected area 3 times a day. 60 g 1 albuterol sulfate (PROVENTIL) (2.5 MG/3ML) 0.083% nebulizer solution Inhale 1 Vial via nebulizer every 6 hours as needed for Wheezing. 120 Vial 11 vitamin c (ASCORBIC ACID) 500 MG Tablet Take 500 mg by mouth daily. CENTRUM SILVER PO TABS Take 1 Tab by mouth daily. 1 Tab 0 REVIEW OF SYSTEMS: See HPI above; All other findings negative. EXAM: Filed Vitals: 01/21/21 1419 BP: 114/60 Pulse: 70 Resp: 16 Temp: 36.5 C (97.7 F) TempSrc: Temporal Artery SpO2: 95% GENERAL: Well developed and well nourished in [...] w NALFD Cirrhosis, varices, anemia, constipation. MELD 8. - Continue Protonix to 40mg daily given indigestion, GERD control, Carafate slurry. - Obtain MELD labs q3-6months. - Last EGD 07/2020. She is on Nadolol 20mg daily, goal HR 55-65 - Last Colonoscopy: 05/2020, recall 5 yrs for hx of TA polyps - Hep A immunity: completed series - Hep B immunity: completed series - HCC screening [id number]: AFP and Liver CT 4 phase by 04/2021 - Encouraged to abstain from ETOH, illicit drugs, APAP no more than 2g daily - Low salt (2g) daily - Advised good control of blood sugars - Continue Linzess 290mcg daily; may add Miralax 17g daily if worsening constipation - F/U Heme Onc for anemia (was on Venofer IV) I spent a total of 30 minutes on the date of service in review of patient's record, and previously obtained information in person and appropriate medical visit, discussion and education of plan, withpatient and/or caregiver, placing orders for tests/referral/procedures as medically necessary and documentation of pertinent clinical information in patient's medical records for their visit today. RETURN TO CLINIC: 3-6months or sooner Esteban Grayson Gastroenterology, [facility] documented in this encounter Nursing Notes * Josefina Oropeza RN - 01/21/2021 2:22 PM EDT Patient identified by name and date of . Chief Complaint Patient presents with Follow Up cirrohsis Symptoms: headache and extremity edema - location: right lower leg; type: non-pitting Bowel Movement Frequency: day before yesterday Bowel Movement Consistency: hard and then Formed yesterday. Straining: yes; occassionally Rectal Pain: yes Blood in Stool: Yes; bright red blood per rectum with last bowel movement documented in this encounter Plan of Treatment Upcoming Encounters Date Type Specialty Care Team Description 01/25/2021 Office Visit [place]acy [place] [address] [facility] [place] [address] 02/26/2021 Immunization/Injection Hematology Oncolog y Nurse, Med [address] [place] [address] [phone] 03/03/2021 Nutrition Services Gastroenterology Melissa Omalley RDN [address] [place] [address] [phone] 03/04/2021 Office Visit Family Medicine Alexandra Caceres DO [address] [place] [address] [phone] 04/16/2021 Office Visit Podiatry Prakash Martino, [place] [address] [place] [address] 04/29/2021 Appointment Radiology 07/06/2021 Office Visit Hematology Oncology Tono Sanchez MD [address] [facility] [place] [address] 07/27/2021 Office Visit Gastroenterology Lyssa Stout CRNP [address] [place] [address] [phone] 09/09/2021 Imaging Radiology Scheduled Orders Name Type Priority Associated Diagnoses Orde r Schedule CT LIVER 4-PHASE W WO IV CONTRAST - WO ORAL CONT Medical Imaging Routine Cirrhosis of liver without ascites, unspecified hepatic cirrhosis type (HCC) Expected: 01/21/2021, Expires: 01/21/2022 CBC WITH WBC DIFFERENTIAL Lab Routine Cirrhosis of liver without ascites, unspecified hepatic cirrhosis type (HCC) Expected: 04/23/2021, Expires: 01/21/2022 COMPREHENSIVE METABOLIC PANEL Lab Routine Cirrhosis of liver without ascites, unspecified hepatic cirrhosis type (HCC) Expected: 04/23/2021, Expires: 01/21/2022 PT INR Lab Routine Cirrhosis of liver without ascites, unspecified hepatic cirrhosis type (HCC) Expected: 04/23/2021, Expires: 01/21/2022 ALPHA-FETOPROTEIN TUMOR MARKER Lab Routine Cirrhosis of liver without ascites, unspecified hepatic cirrhosis type (HCC) Expected: 04/23/2021, Expires: 01/21/2022 Health Maintenance Due Date Last Done Comments [...] this encounter Implants Implanted Type Area Mechanical Engineer Device Identifier Shelf Expiration Date Model / Serial / Lot Microtech Sure Clip Implanted:Qty: 2 on 06/03/2020 by Janis Hatch DO at OR [facility] Clip N/A: Colon 04/21/2022 [facility]-F-26-2 35-C-R / / [id number] documented as of this encounter Visit Diagnoses Diagnosis Cirrhosis of liver without ascites, unspecified hepatic cirrhosis type (HCC)- Primary Nonalcoholic fatty liver disease Other chronic nonalcoholic liver disease Chronic constipation Unspecified constipation documented in this encounter Advance Directives Documents on File Type Date Recorded Patient Strategic Accounts Manager Expl anation Advanced Directive service a [...]
--- OUTSIDE RECORDS SUMMARY | 2023-05-10 21:19 | External Medical Summary ---
Author Name Unknown Address Unknown Organization [id number]:[facility] [place] [address] Laboratory Report Ordering Provider Test Date Status JACOB CORBETT 01/15/2021 14:23:44 Final Observation Date Value Abnormality Reference (Units ) Status SYNC LEUKOCYTES IN BLOOD BY AUTOMATED COUNT 01/15/2021 14:23:44 3.03 Below low normal 4.00-10.80 (K/uL) Final Segs 01/15/2021 14:23:44 52.4 40.0-75.0 (%) Final Lymphs % 01/15/2021 14:23:44 28.4 18.0-42.0 (%) Final Monos 01/15/2021 14:23:44 10.9 1.0-11.0 (%) Final Eosinophils 01/15/2021 14:23:44 7.6 Above high normal 0.0-6.0 (%) Final Basos 01/15/2021 14:23:44 0.7 0.0-2.0 (%) Final Absolute Segs 01/15/2021 14:23:44 1.59 Below low normal 1.80-7.70 (K/uL) Final Lymphs, absolute 01/15/2021 14:23:44 0.86 Below low normal 1.00-4.80 (K/ul) Final Monos, Abs 01/15/2021 14:23:44 0.33 0.00-1.10 (K/uL) Final Eos, Abs 01/15/2021 14:23:44 0.23 0.00-0.70 (K/uL) Final Basos, Abs 01/15/2021 14:23:44 0.02 0.00-0.20 (K/uL) Final Performing Location [facility] [place] [address]
--- OUTSIDE RECORDS SUMMARY | 2023-05-10 21:19 | External Medical Summary ---
Author Name Unknown Address Unknown Organization K01:[facility] [address] [place] [address] Laboratory Report Ordering Provider Test Date Status JACOB CORBETT 01/15/2021 14:23:34 Final Observation Date Value Abnormality Reference (Units ) Status Ferritin 01/15/2021 14:23:34 93 13-150 (ng /mL) Final Performing Location [facility] - [address] [place] [address]
--- OUTSIDE RECORDS SUMMARY | 2023-05-10 21:19 | External Medical Summary | Summary of Care ---
Author Name Unknown Organization [facility] Address [place] [address] Care Team Providers Care Interpreter Deaf Name Role Phone NickiAlexandra Daisha MORENO Primary Care Provider Reason for Visit * Reason Comments Procedure labs via port/port f lush Encounter Details Date Type Department Care Team Description 01/15/2021 Immunization/In jection Hematology/Oncology Treatment, [place] [address] [place] [address] Nurse, Med [address] [place] [address] [phone] Iron deficiency anemia due to chronic blood loss* Allergies Active Allergy Reactions Severity Noted Date Comments Adhesive Tape Itching 04/29/2020 Penicillins Rash 02/12/2008 Perflutren Protein A Microsph 2019 Definity-lower back pain documented as of this encounter (statuses as of 01/15/2021) Medications Medication Sig Dispensed Refills Start Date [...] 120 Vial 11 10/02/2019 Active nystatin (NYSTOP) 806351 UNIT/GM powder Apply topically to affected area [...] 7.0% ([facility]) Inject 25 units under the skin once a day 30 mL 3 08/31/2020 Active Dexcom G6 Radio Mechanic Helper Device Use as directed. To test [...] TO ACCESSING. 30 g 3 10/09/2020 Active DepositphotosTouch Verio In Vitro Strip (Glucose Blood) TESTING once daily 100 Strip 3 10/29/2020 Active DepositphotosTouch Delica Plus [id number] TESTING once daily 100 Each 3 10/29/2020 [...] as of this encounter (statuses as of 01/15/2021) Active Problems Problem Noted Date Uncontrolled type [...] as of this encounter (statuses as of 01/15/2021) Resolved Problems Problem Noted Date Resolved Date [...] pain 01/24/2012 01/17/2017 Genetic Sleep Disorder Research Other*[id number] 05/13/2011 04/07/2016 Obstructive sleep apnea 01/18/2011 12/27/19 [...] as of this encounter (statuses as of 01/15/2021) Immunizations Name Administration Dates Next Due COVID-19 [...] or bathing? 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-maintenance chief helps 07/15/2020 Because of a physical, menta [...] No 07/15/2020 documented as of this encounter Nursing Notes * Dulce Montes De Oca, RN - 01/15/2021 2:31 PM EDT VAD (Venous Access Device) accessed with #20G 3/4" without difficulty. VAD flushed with 10 ml NSS and Heparin 5 ml (100 units/ml). Mason needle removed intact. Pt discharged in stable condition. documented in this encounter Plan of Treatment Upcoming Encounters Date Type Specialty Care Team Description 01/21/2021 Office Visit Gastroenterology Lyssa Stout CRNP [address] [place] [address] [phone] 01/25/2021 Office Visit Pharmacy [facility] [address] [place] [address] [phone] 02/26/2021 Immunization/Injection Hematology Oncolog y Nurse, Med [address] [place] [address] [phone] 03/03/2021 Nutrition Services Gastroenterology Melissa Omalley RDN [address] [place] [address] 03/04/2021 Office Visit Family Medicine Alexandra Caceres DO [address] [place], [place] [address] 04/16/2021 Office Visit Podiatry Prakash Martino DPM [address] [place] [address] 07/06/2021 Office Visit Hematology Oncology Tono Sanchez MD [address] [place] [address] [phone] 09/09/2021 Imaging Radiology Pending Results Name Type Priority Associated Diagnoses Date /Time CBC WITH WBC DIFFERENTIAL Lab Routine Iron deficiency anemia due to chronic blood loss 01/15/2021 2:23 PM EDT FERRITIN Lab Routine Iron deficiency anemia due to chronic blood loss 01/15/2021 2:23 PM EDT IRON SCREEN, INCLUDING TIBC Lab Routine Iron deficiency anemia due to chronic blood loss 01/15/2021 2:23 PM EDT AUTOMATED ANALYZER WBC DIFFERENTIAL Lab Routine Iron deficiency anemia due to chronic blood loss 01/15/2021 2:23 PM EDT Health Maintenance Due Date Last [...] of this encounter Implants Implanted Type Area Flocculator Operator Device Identifier Shelf Expiration Date Model / Serial / Lot Microtech Sure Clip Implanted:Qty: 2 on 06/03/2020 by Janis Hatch DO at OR [facility] Clip N/A: Colon 04/21/2022 [facility]-F-26-2 35-C-R / / [id number] documented as of this encounter Procedures Procedure Name Priority Date/Time Associated Diagnosis Comments CBC Routine 01/15/2021 2:23 PM EDT Iron deficiency anemia due to chronic blood loss documented in this encounter Results * CBC (01/15/2021 2:23 PM EDT) WBC 3.03(L) 4.00 - 10.80 K/uL [place] [address] RBC 3.83(L) 3.85 - 5.15 M/uL [address] HGB 11.4(L) 12.0 - 15.3 g/dL [place] [address] HCT 36.4 36.0 - 45.2 % LABORATORY [address] MCV 95.0 81.5 - 97.[address] MCH 29.8 27.0 - 34.0 pg [facility] [place] [address] MCHC 31.3(L) 32.0 - 36.0 g/dL [place] [address] RDW 25.2(H) 11.5 - 15.5 % [address] 64(L) 140 - 400 K/uL [place] [address] MPV Comment:No result - abnormal platelet distribution. [place] [address] Specimen Blood - Venous blood specime n (specimen) [place] [address] [place] [address] documented in this encounter Visit [...] IV Lock, PRN Other, IV Flush, Starting 01/15/21 at 1407, Until 01/16/21 at 1406, For 24 hours, Do not flush if lock, PICC, or central line not in place; IV infusing or unable to flush., Given 01/15/2021 2:15 PM EDT 500 Units sodium chloride 0.9% flush/inj 10 mL 10 mL, IV Push, PRN Other, IV Flush, Starting 01/15/21 at 1407, Until 01/16/21 at 1406, For 24 hours, Do not flush if lock, PICC, or central line not in place; IV infusing or unable to flush., Given 01/15/2021 2:15 PM EDT 10 mL documented in this encounter Advance Directives Documents on File Type Date Recorded Patient Alpine Patroller Expl anation Advanced Directive service a kerri [...]
--- OUTSIDE RECORDS SUMMARY | 2023-05-10 21:20 | External Medical Summary ---
Author Name Unknown Address Unknown Organization K09:[facility] [place] [address] Laboratory Report Ordering Provider Test Date Status JACOB CORBETT 01/15/2021 14:23:44 Final Observation Date Value Abnormality Reference (Units ) Status Nucleated erythrocytes/100 leukocytes [Ratio] in Blood by Automated count 01/15/2021 14:23:44 Final Anisocytosis [Presence] in Blood by Light microscopy 01/15/2021 14:23:44 Moderate Abnormal None Seen Final Elliptocytes [Presence] in Blood by Light microscopy 01/15/2021 14:23:44 Moderate Abnormal None Seen Final Hypochromia [Presence] in Blood by Light microscopy 01/15/2021 14:23:44 Slight Abnormal None Seen Final Dacrocytes [Presence] in Blood by Light microscopy 01/15/2021 14:23:44 Few Abnormal None Seen Final Performing Location [facility] [place] [address]
--- OUTSIDE RECORDS SUMMARY | 2023-05-10 21:20 | External Medical Summary | Summary of Care ---
Author Name Unknown Organization [facility] Address [place] [address] Care Team Providers Care Insole Taper Name Role Phone Alexandra Caceres Primary Care Provider Encounter Details Date Type Department Care Team Description 01/13/2021 Orders Only Hematology/Oncology [facility] [address] [place] [address] Tono Sanchez MD [address] [place] [address] [phone] Iron deficiency anemia due to chronic blood loss* Allergies Active Allergy Reactions Severity Noted Date Comments Adhesive Tape Itching 04/29/2020 Penicillins Rash 02/12/2008 Perflutren Protein A Microsph 2019 Definity-lower back pain documented as of this encounter (statuses as of 01/13/2021) Medications Medication Sig Dispensed Refills Start Date [...] 120 Vial 11 10/02/2019 Active nystatin (NYSTOP) 537896 UNIT/GM powder Apply topically to affected area [...] less than 7.0% ([facility]) Inject 25 units under the skin once a day 30 mL 3 08/31/2020 Active Dexcom G6 Clinical Support Specialist Device Use as directed. To test [...] Strip 3 10/29/2020 Active OneTouch Delica Plus [id number] TESTING once daily 100 Each 3 10/29/2020 [...] as of this encounter (statuses as of 01/13/2021) Active Problems Problem Noted Date Uncontrolled type [...] as of this encounter (statuses as of 01/13/2021) Resolved Problems Problem Noted Date Resolved Date [...] pain 01/24/2012 01/17/2017 Genetic Sleep Disorder Research Other*[id number] 05/13/2011 04/07/2016 Obstructive sleep apnea 01/18/2011 12/27/19 [...] as of this encounter (statuses as of 01/13/2021) Immunizations Name Administration Dates Next Due COVID-19 [...] or bathing? 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 07/15/2020 Because of a physical, [...] No 07/15/2020 documented as of this encounter Plan of Treatment Upcoming Encounters Date Type Specialty Care Team Description 01/15/2021 Immunization/Injection Hematology Oncolog lisa Bojorquez, Chair [address] On[address] [address] [phone] 01/21/2021 Office Visit Gastroenterology Lyssa Stout CRNP [address] [facility] [place] [address] [phone] 01/25/2021 Office Visit Pharmacy [facility] [address] [place] [address] 03/03/2021 Nutrition Services Gastroenterology Melissa Omalley, SAMANTHA [address] [place] [address] [phone] 03/04/2021 Office Visit Family Medicine Alexandra Caceres, DO [address] [place] [address] 04/16/2021 Office Visit Podiatry Prakash Martino, SIRENA [address] [place] [address] 07/06/2021 Office Visit Hematology Oncology Tono Sanchez MD 200 [facility] [place] [address] [phone] 09/09/2021 Imaging Radiology Scheduled Orders Name Type Priority Associated Diagnoses Orde r Schedule CBC WITH WBC DIFFERENTIAL Lab Routine Iron deficiency anemia due to chronic blood loss Expected: 01/15/2021, Expires: 02/13/2022 FERRITIN Lab Routine Iron deficiency anemia due to chronic blood loss Expected: 01/15/2021, Expires: 02/13/2022 IRON SCREEN, INCLUDING TIBC Lab Routine Iron deficiency anemia due to chronic blood loss Expected: 01/15/2021, Expires: 02/13/2022 Health Maintenance Due Date Last Done Comments [...] this encounter Implants Implanted Type Area Transit Proof Machine Operator Device Identifier Shelf Expiration Date Model / Serial / Lot Microtech Sure Clip Implanted:Qty: 2 on 06/03/2020 by Janis Hatch DO at OR [facility] Clip N/A: Colon 04/21/2022 [facility]-F-26-2 35-C-R / / [id number] documented as of this encounter Visit Diagnoses Diagnosis Iron deficiency anemia due to chronic blood loss- Primary Iron deficiency anemia secondary to blood loss (chronic) documented in this encounter Advance Directives Documents on File Type Date Recorded Patient Telephone Solicitor Supervisor Expl anation Advanced Directive service a [...]
--- OUTSIDE RECORDS SUMMARY | 2023-05-10 21:20 | External Medical Summary | Summary of Care ---
Author Name Unknown Organization [facility] Address [facility] [place] [address] Care Team Providers Care Felt Finishing Supervisor Name Role Phone Alexandra Caceres Primary Care Provider Encounter Details Date Type Department Care Team Description 01/13/2021 Orders Only Hematology/Oncology Treatment, [address] [address] Tono Sanchez MD [address] [place], [place] [id number] Allergies Active Allergy Reactions Severity Noted Date [...] 120 Vial 11 10/02/2019 Active nystatin (NYSTOP) 036050 UNIT/GM powder Apply topically to affected area [...] than 7.0% ([facility]) Inject 25 units under the skin once a day 30 mL 3 08/31/2020 Active Dexcom G6 Prism Inspector Device Use as directed. To test [...] once daily 100 Strip 3 10/29/2020 Active BukupeTouch Delica Plus [id number] TESTING once daily 100 Each 3 10/29/2020 [...] pain 01/24/2012 01/17/2017 Genetic Sleep Disorder Research Other*[id number] 05/13/2011 04/07/2016 Obstructive sleep apnea 01/18/2011 12/27/19 [...] or bathing? 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-overnight caregiver helps 07/15/2020 Because of a physical, [...] Care Team Description 01/15/2021 Immunization/Injection Hematology Oncolog y Maryellen, Chair 3 Hem Onc [facility] [address] [place] [address] [phone] 01/21/2021 Office Visit Gastroenterology Lyssa Stout CRNP [address] [facility] [place] [address] [phone] 01/25/2021 Office Visit Pharmacy [facility] [address] [place] [address] 03/03/2021 Nutrition Services Gastroenterology Melissa Omalley, LUIS [place] [address] [place] [address] [phone] 03/04/2021 Office Visit Family Medicine Alexandra Caceres, [address] [place] [address] [phone] 04/16/2021 Office Visit Podiatry Prakash Martino, DPBelen [address] [place] [address] 07/06/2021 Office Visit Hematology Oncology Tono Sanchez MD [address] [place] [address] [phone] 09/09/2021 Imaging Radiology Health Maintenance Due Date [...] this encounter Implants Implanted Type Area Manager Documentation Device Identifier Shelf Expiration Date Model / Serial / Lot Microtech Sure Clip Implanted:Qty: 2 on 06/03/2020 by Janis Hatch DO at OR [facility] Clip N/A: Colon 04/21/2022 [facility]-F-26-2 35-C-R / / [id number] documented as of this encounter Advance Directives Documents on File Type Date Recorded 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
--- OUTSIDE RECORDS SUMMARY | 2023-05-10 21:20 | External Medical Summary ---
Author Name Unknown Address Unknown Organization K09:[facility] [place] [address] Laboratory Report Ordering Provider Test Date Status JACOB CORBETT 01/15/2021 14:23:44 Final Observation Date Value Abnormality Reference (Units ) Status WBC, Total 01/15/2021 14:23:44 3.03 Below low normal 4. 00-10.80 (K/uL) Final RBC 01/15/2021 14:23:44 3.83 Below low normal 3.8 5-5.15 (M/uL) Final Hemoglobin 01/15/2021 14:23:44 11.4 Below low normal 12 .0-15.3 (g/dL) Final HCT 01/15/2021 14:23:44 36.4 36.0-45.2 (%) Final MCV 01/15/2021 14:23:44 95.0 81.5-97.5 (fL) Final MCH 01/15/2021 14:23:44 29.8 27.0-34.0 (pg) Final MCHC 01/15/2021 14:23:44 31.3 Below low normal 32. 0-36.0 (g/dL) Final RDW 01/15/2021 14:23:44 25.2 Above high normal 11 .5-15.5 (%) Final Platelets 01/15/2021 14:23:44 64 Below low normal 140 -400 (K/uL) Final MPV 01/15/2021 14:23:44 Final Performing Location [facility] [place] [address]
--- OUTSIDE RECORDS SUMMARY | 2023-05-10 21:20 | External Medical Summary ---
Author Name Unknown Address Unknown Organization K01:[facility] [place] [address] [place] [address] Laboratory Report Ordering Provider Test Date Status JACOB CORBETT 01/15/2021 14:23:34 Final Observation Date Value Abnormality Reference (Units ) Status Iron 01/15/2021 14:23:34 111 33-151 (ug /dL) Final Iron-binding capacity 01/15/2021 14:23:34 313 250-425 (ug/dL) Final Transferrin Sat % 01/15/2021 14:23:34 35 15 -55 (%) Final Performing Location [facility] [place] [facility] [address] [place] [address]
--- OUTSIDE RECORDS SUMMARY | 2023-05-10 21:21 | External Medical Summary | Summary of Care ---
Author Name Unknown Organization [place] [address] Care Team Providers Care High School Vice Principal Name Role Phone Alexandra Caceres Primary Care Provider [phone] Reason for Visit * Reason Comments Follow Up 3m Encounter Details Date Type Department Care Team Description 01/01/2021 Office Visit Hematology/Oncology [facility] [address] [place] [address] Tono Sanchez MD [address] [place], [place] [id number] Iron deficiency anemia due to chronic blood loss*; Pancytopenia (HCC) Allergies Active Allergy Reactions Severity Noted Date Comments Adhesive Tape Itching 04/29/2020 Penicillins Rash 02/12/2008 Perflutren Protein A Microsph 2019 Definity-lower back pain documented as of this encounter (statuses as of 01/01/2021) Medications Medication Sig Dispensed Refills Start Date [...] 120 Vial 11 10/02/2019 Active nystatin (NYSTOP) 022191 UNIT/GM powder Apply topically to affected area [...] 11/19/2019 Active potassium chloride ER 10 MEQ TBCRIndications:Hypo kalemia TAKE 1 TABLET BY MOUTH ONCE DAILY WITH FOOD 90 Tab 3 05/25/2020 Active silver sulfadiazine (SILVADENE) 1 % cream Apply topically to affected area daily. Apply to right great toe 50 g 0 05/26/2020 Active famotidine (PEPCID) 20 MG Tablet Take 1 Tab by mouth every night at bedtime. 34 Tab 0 05/29/2020 Active Atorvastatin Calcium 40 MG Oral Tablet (LIPITOR)Indications :Dyslipidemia, goal LDL below 70 TAKE 1 TABLET BY MOUTH AT BEDTIME 90 Tab 1 07/16/2020 Active Ipratropium-Albutero l 0.5-2.5 (3) MG/3ML Inhalation Solution (DUONEB)Indications: Moderate persistent asthma with acute exacerbation Inhale 3 mL via nebulizer 4 times a day. 3 mL 10 07/27/2020 Active Fluticasone-Salmeter ol 250-50 MCG/DOSE Inhalation Aerosol Powder Breath Activated (Advair Diskus)Indications:M oderate persistent asthma with acute exacerbation Inhale 1 Puff by mouth 2 times a day. 60 Each 3 07/27/2020 Active Lantus SoloStar 100 UNIT/ML Subcutaneous Solution Pen-injector (insulin glargine)Indications :Type 2 diabetes mellitus with hemoglobin A1c goal of less than 7.0% ([facility]) Inject 25 units under the skin once a day 30 mL 3 08/31/2020 Active Dexcom G6 Contract Consultant Device Use as directed. To test [...] TO ACCESSING. 30 g 3 10/09/2020 Active NewRiverTouch Verio In Vitro Strip (Glucose Blood) TESTING once daily 100 Strip 3 10/29/2020 Active NewRiverTouch Delica Plus [id number] TESTING once daily 100 Each 3 10/29/2020 [...] AT BEDTIME 90 Tab 2 11/30/2020 Active Benzonatate 100 MG Oral Capsule (Tessalon Perles) Take 2 Caps by mouth 3 times a day as needed for Cough for up to 30 days. 90 Cap 0 12/03/2020 01/02/2021 Active BD Pen Needle Mini U/F 31G [...] 12/28/2020 Active Furosemide 20 MG Oral Tablet (Lasix)Indications:L ocalized edema,Venous stasis dermatitis of both lower extremities TAKE 1 TABLET BY MOUTH EVERY DAY NEEDED for edema 90 Tab 3 12/28/2020 Active Pantoprazole Sodium 20 MG Oral Tablet Delayed Release (Protonix)Indication s:NAFLD (nonalcoholic fatty liver disease),Other cirrhosis of liver (HCC) TAKE 2 TABLETS BY MOUTH TWICE DAILY 180 Tab 1 12/29/2020 Active documented as of this encounter (statuses as of 01/01/2021) Active Problems Problem Noted Date Uncontrolled type [...] as of this encounter (statuses as of 01/01/2021) Resolved Problems Problem Noted Date Resolved Date [...] pain 01/24/2012 01/17/2017 Genetic Sleep Disorder Research Other*[id number] 05/13/2011 04/07/2016 Obstructive sleep apnea 01/18/2011 12/27/19 [...] as of this encounter (statuses as of 01/01/2021) Immunizations Name Administration Dates Next Due COVID-19 [...] Sign Reading Time Taken Comments Blood Pressure 124/65 01/01/2021 3:33 PM EDT Pulse 68 01/01/2021 3:33 PM EDT Temperature 36.3 C (97.3 F) 01/01/2021 3:33 PM ED T Respiratory Rate 16 01/01/2021 3:33 PM EDT Oxygen Saturation 95% 01/01/2021 3:33 PM EDT Inhaled Oxygen Concentration - - [...] or bathing? 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 DIAGNOSIS: -pancytopenia related to underlying cirrhosis of liver and splenomegaly -iron deficiency anemia. DIAGNOSTIC WORKUP: She is referred to hematology for evaluation of the anemia, I I reviewed her medical records, also reviewed her medical records from [facility]. She has underlying cirrhosis of liver, has evidence of iron deficiency for the last 1 year, Ferritin level was less than 10 earlier in December 2018, she was on oral iron replacement therapy once a day,lately increase to twice a day. She was admitted at [facility] in November 2019, she received 1 [...] received 6 treatments in last 3 months). INTERVAL HISTORY: She has come the clinic for the follow-up, accompanied by her in the office, came to clinicin the wheelchair. She is not on oxygen treatment but she uses CPAP machine with oxygen during the nighttime, O2 saturation is normal on room air at this time, no nausea, no vomiting, she has not seen any blood in the stool, bilateral leg edema present, abdominal distension present, fair appetite, no fever at this time. Shortness of breath on minimal exertion present. Current weight around 260 lb. No increasing chest pain at this time. Review of patient's allergies indicates: Allergen Reactions [...] four times daily; E11.42 400 Each 3 Benzonatate 100 MG Oral Capsule (Tessalon Perles) Take 2 Caps by mouth 3 times a day as needed for Cough for up to 30 days. 90 Cap 0 Cyclobenzaprine HCl 10 MG Oral Tablet (Flexeril) [...] week 6 mL 3 OneTouch Delica Plus [id number] TESTING once daily 100 Each 3 OneTouch Verio In Vitro Strip (Glucose Blood) TESTING once daily 100 Strip 3 Lidocaine-Prilocaine 2.5-2.5 % External Cream (Emla) Apply topically to affected area as needed forOther (for port). APPLY TO SKIN OVER MEDIPORT & COVER 1HR PRIOR TO ACCESSING. 30 g 3 Nadolol 20 MG Oral Tablet (CORGARD) One daily 90 Tab 1 Dexcom G6 Contract Consultant Device Use as directed. To test [...] With spacer 16 g 1 nystatin (NYSTOP) 124919 UNIT/GM powder Apply topically to affected area 3 times a day. 60 g 1 albuterol sulfate (PROVENTIL) (2.5 MG/3ML) 0.083% nebulizer solution Inhale 1 Vial via nebulizer every 6 hours as needed for Wheezing. 120 Vial 11 vitamin c (ASCORBIC ACID) 500 MG Tablet Take 500 mg by mouth daily. CENTRUM SILVER PO TABS Take 1 Tab by mouth daily. 1 Tab 0 Past Medical History: Diagnosis Date Cerebral palsy [...] less than 7.0% ([facility]) 09/26/2013 ICD-10 update of inactive term OBJECTIVE: There were no vitals filed for this visit. Wt Readings from Last 5 Encounters: 12/03/20 117.9 kg (260 lb) 09/24/20 119.7 kg (264 lb) 08/07/20 119.7 kg (264 lb) 08/05/20 119.7 kg (264 lb) 07/23/20 119.7 kg (264 lb) PHYSICAL EXAM: General Appearance: Normal - [...] count of 80,000, ANC 1400. Absolute lymphocyte [id number]. -BUN/Creat: 10/0.6, Calcium 8.7. -Serum iron 26, TIBC 352, iron saturation 7%, Ferritin level > 22.5 Will get blood workup early next month and will decide about further need for intravenous iron treatment. IMPRESSION/PLAN: Iron Deficiency Anemia, in the setting of cirrhosis of liver with portal Hypertension and splenomegaly causing pancytopenia. Now she has a port, she received IV iron in the form Venofer x6. Planning for CBCD, Ferritin, iron profile about 1 month after the last IV iron treatment in early January 2021 After reviewing those blood test, will decide about further need for IV iron treatment She will have port flushed every 4 to 6 weekly. I am planning to see [...] Nursing Notes * Lilian Jara CMA - 01/01/2021 3:33 PM EDT Patient identifed by name and birthdate Do you have any concerns about pain management for today's visit? No Living Will or Advance Directive for Health Care as noted on the problem list. [facility] is a way you can talk to your provider on line through e-mail. Would you like to sign up? I can activate it for you? NO Filed Vitals: 01/01/21 1533 BP: 124/65 Pulse: 68 Resp: 16 Temp: 36.3 C (97.3 F) TempSrc: Infrared SpO2: 95% documented in this encounter Plan of Treatment Upcoming Encounters Date Type Specialty Care Team Description 01/12/2021 Office [facility] [address] [facility] [address] 01/15/2021 Immunization/Injection Hematology Oncolog lisa Bojorquez, Chair 3 Hem Onc [address] [place] [address] [phone] 01/21/2021 Office Visit Gastroenterology Lyssa Stout CRNP [address] [place] [address] [phone] 01/25/2021 Office Visit Pharmacy [address] [place] [address] [phone] 03/03/2021 Nutrition Services Gastroenterology Melissa Omalley, SAMANTHA [address] [place] [address] [phone] 03/04/2021 Office Visit Family Medicine Alexandra [facility]aceres DO [address] [facility] [address] 07/06/2021 Office Visit Hematology Oncology Tono Sanchez MD [address] [facility] [place] [address] [phone] 09/09/2021 Imaging Radiology Health Maintenance Due Date [...] of this encounter Implants Implanted Type Area Blocker Automatic Device Identifier Shelf Expiration Date Model / Serial / Lot Microtech Sure Clip Implanted:Qty: 2 on 06/03/2020 by Janis Hatch DO at OR [facility] Clip N/A: Colon 04/21/2022 [facility]-F-26-2 35-C-R / / [id number] documented as of this encounter Visit Diagnoses Diagnosis Iron deficiency anemia due to chronic blood loss- Primary Iron deficiency anemia secondary to blood loss (chronic) Pancytopenia (HCC) Other pancytopenia documented in this encounter Advance Directives Documents on File Type Date Recorded Patient Plater Apprentice Expl anation Advanced Directive service a [...]
--- OUTSIDE RECORDS SUMMARY | 2023-05-10 21:21 | External Medical Summary | Summary of Care ---
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 Name Role Phone Alexandra Caceres DO Primary Care Provider [phone] Reason for Visit * Reason Comments NEW PATIENT Ingrown toenail left foot Diabetic Foot Care * Evaluate & Treat - Unlimited Visits (Within 10 days (routine)) Status Reason Specialty Diagnoses / Procedures Referred By Contact Referred To Contact Closed Specialty Services Required Podiatry Diagnoses Ingrowing toenail Alexandra Caceres DO [address] [place] [address] Encounter Details Date Type Department Care Team Description 01/12/2021 Office Visit Podiatry [address] [id number] Prakash Martino, [facility] [address] [place] [address] Type II diabetes mellitus with peripheral circulatory disorder (HCC)*; Onychomycosis; Pain due to onychomycosis of toenails of both feet; Painful diabetic neuropathy (HCC) Allergies Active Allergy Reactions Severity Noted Date Comments Adhesive Tape Itching 04/29/2020 Penicillins Rash 02/12/2008 Perflutren Protein A Microsph 2019 Definity-lower back pain documented as of this encounter (statuses as of 01/12/2021) Medications Medication Sig Dispensed Refills Start Date [...] 120 Vial 11 10/02/2019 Active nystatin (NYSTOP) 590367 UNIT/GM powder Apply topically to affected area [...] less than 7.0% ([facility]) Inject 25 units under the skin once a day 30 mL 3 08/31/2020 Active Dexcom G6 Hourly Shift Manager Device Use as directed. To test [...] Strip 3 10/29/2020 Active OneTouch Delica Plus [id number] TESTING once daily 100 Each 3 10/29/2020 [...] as of this encounter (statuses as of 01/12/2021) Active Problems Problem Noted Date Uncontrolled type 2 diabetes mellitus wi th hyperglycemia 07/15/2020 Esophagitis 07/06/2020 Esophageal varices 07/06/2020 Diabetic ulcer of right great toe 2019 Iron deficiency anemia due to chronic bl ood loss 12/03/2019 Splenomegaly 12/03/2019 Thrombocytopenia 05/02/2019 Gastroesophageal reflux disease 04/08/20 19 History of Achilles tendon repair 2018 Anemia 04/08/2019 Fibromyalgia 04/08/2019 Achilles tendinitis, right leg 07/29/201 9 DNR (do not resuscitate) 04/08/2019 Ambulatory [...] as of this encounter (statuses as of 01/12/2021) Resolved Problems Problem Noted Date Resolved Date [...] pain 01/24/2012 01/17/2017 Genetic Sleep Disorder Research Other*[id number] 05/13/2011 04/07/2016 Obstructive sleep apnea 01/18/2011 12/27/19 [...] as of this encounter (statuses as of 01/12/2021) Immunizations Name Administration Dates Next Due COVID-19 [...] Taken Comments Blood Pressure - - Pulse - - Temperature 36.3 C (97.4 F) 01/12/2021 1:48 PM ED T Respiratory Rate - - [...] or bathing? 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 Patient is confined to a wheelchair. Patient alert and oriented to person, place and time. Past Medical History: Diagnosis Date Cerebral palsy [...] of less than 7.0% ([facility]) 09/26/2013 ICD-10 update of inactive term Past Surgical History: Procedure Laterality Date BONE DEBRIDEMENT, FIRST 20 CM2 Right 04/16/2020 DEBRIDEMENT SKIN SUBCUTANEOUS TISSUE MUSCLE AND BONE performed by Josh Vazquez MD at [place] [facility] [place] 04/20/1982 COLONOSCOPY 04/21/2009 repeat in 10 years COLONOSCOPY, DIAGNOSTIC (RECTUM) 10/04/2016 normal bx, repeat 10 yrs/[facility] COLONOSCOPY, DIAGNOSTIC (RECTUM) N/A 06/03/2020 internal hemorrhoids/biopsies show adenomatous polyps/recall 5 years/COLONOSCOPY FLEXIBLE PROXIMAL DIAGNOSTIC performed by Janis Hatch DO at OR [facility] COLONOSCOPY, DIAGNOSTIC (RECTUM) 03/17/2020 poor [...] formed by Janis Hatch DO at OR [facility] EGD, FLEXIBLE, DIAGNOSTIC 11/27/2019 eso varices, portal hypertensive gastropathy, gastritis / [facility] EGD, FLEXIBLE, DIAGNOSTIC N/A 08/05/2020 large amount of food in stomach/repeat 1.5 years/ESOPHAGOGASTRODUODENOSCOPY (EGD), FLEXIBLE, TRANSORAL, DIAGNOSTIC performed by Janis Hatch DO at OR [facility] IR VENOUS ACCESS MEDIPORT 10/05/2020 PELVIS/HIP JOINT SURGERY NEC teenager aid in walking REPAIR/GRAFT ACHILLES TENDON age 40 aid in walking Family History Problem Relation Age of Onset Heart Disorder Father of [place] at age 61 Diabetes Father Heart Disorder Mother of [place] age 72 Cancer None Arthritis None Stroke [...] file Gets together: Not on file Attends holiness service: Not on file Active member of [...] file Social History Narrative 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 APPLY TO SKIN OVER MEDIPORT & COVER 1HR PRIOR TO ACCESSING. 30 g 3 Nadolol 20 MG Oral Tablet (CORGARD) One daily 90 Tab 1 Dexcom G6 Hourly Shift Manager Device Use as directed. To test [...] With spacer 16 g 1 nystatin (NYSTOP) 709626 UNIT/GM powder Apply topically to affected area [...] mouth daily. 1 Tab 0 REVIEW OF SYSTEMS ROS EXAM: CONSTITUTIONAL: No change in weight, No weakness, No fatigue and No fevers, sweats, or chills EXTREMITIES: {SYS EXTREMITIES/MSK ROS 100:894: Pain in feet and severe edema SKIN/INTEGUMENTARY: Some venous stasis dermatitis +lymphedema SomeNEUROLOGIC: Patient is confined to wheelchair DERMATOLOGICAL Temperature: wnl Texture: smooth Turger: normal Scaling: mild Hair Distribution: normal Right foot Interdigital Maceration: - Left foot Interdigital Maceration: - Right foot Nails: Mycotic thickened painful nails Left foot Nails: Mycotic thickened painful nails Lesions: Heloma durum 0 Left, 0 Right Submetatarsal tyloma 0 Left, 0 Right Heel callous: negative Pinch callous:negative VASCULAR EXAM Right foot Pulses: Dorsalis Pedis-1/4 palpable Left foot Pulses: Dorsalis Pedis- 0/4 palpable Right foot Subpapillary venous plexus filling time: within limits Left foot Subpapillary venous plexus filling time: within limits Right foot Posterior Tibial Pulse-0/4 palpable Left foot Posterior Tibial Pulse- 0/4 palpable Right foot Edema: severe Left foot Edema: severe Right foot Cyanosis: - Left foot Cyanosis: - Right foot Telangiectasias: - Left foot Telangiectasias: - Right foot Rubor: - Left foot Rubor: - Right foot Varicosities: - Left foot Varicosities: - NEUROLOGICAL Right foot Posterior Tibial Nerve: sensate Left foot Posterior Tibial Nerve: sensate Right foot Deep Peroneal Nerve: sensate Left foot Deep Peroneal Nerve: sensate Right foot Sural Nerve: sensate Left foot Sural Nerve: sensate Right foot Superficial Peroneal Nerve:sensate Left foot Superficial Peroneal Nerve: sensate Mcdonald Mauro is sensate Right Vibratory: intact Left Vibratory: intact ORTHOPEDIC Muscles: Right inverters 5 Left inverters 5 Right everters: 5 Left everters: 5 Right Dorsiflexors: 5 Left Dorsiflexors: 5 Right Plantarflexors: 5 Left Plantarflexors: 5 Joint ROM: Right foot Ankle Joint: severely diminished Left foot Ankle Joint: severely diminished Right foot Subtalar joint: severely diminished Left foot Subtalar joint: severely diminished Right foot Midtarsal joint: severely diminished Left foot Midtarsal joint: severely diminished Right foot Metatarsal Phalangeal joint: WNL Left foot Metatarsal Phalangeal joint: WNL Right Equinus: - Left Equinus: - Right Masses: - Left Masses: - Right Effusions: - Left Effusions: - Left Deformities: HAV deformity and clawtoes Right Deformities: Clawtoes Assessment: The primary encounter diagnosis was Type II diabetes mellitus with peripheral circulatory disorder (HCC). Diagnoses of Onychomycosis, Pain due to onychomycosis of toenails of both feet, and Painful diabetic neuropathy (HCC) were also pertinent to this visit. Plan: 1. Discussed etiology and treatment options. 2. Discussed importance of diabetic foot care. 3. Debridement of mycotic nails x 10 documented in this encounter Nursing Notes * Miley Vasquez LPN - 01/12/2021 1:48 PM EDT Patient presents for diabetic nail care and ingrown toenail left great toe. Blood sugar is 239 today. documented in this encounter Plan of Treatment Upcoming Encounters Date Type Specialty Care Team Description 01/15/2021 Immunization/Injection Hematology Oncolog lisa Bojorquez, Chair [address] Hem On[address] [address] [phone] 01/21/2021 Office Visit Gastroenterology Lyssa Stout CRNP [address] [place] [address] [phone] 01/25/2021 Office Visit Pharmacy [facility] [address], [place] [id number] 03/03/2021 Nutrition Services Gastroenterology Melissa Omalley, RDN [address] [place] [address] [phone] 03/04/2021 Office Visit Family Medicine Alexandra Caceres, [address] [place] [address] [phone] 04/16/2021 Office Visit Podiatry Prakash Martino DPM [address] [place] [address] 07/06/2021 Office Visit Hematology Oncology Tono Sanchez MD [address] [place] [address] [phone] 09/09/2021 Imaging Radiology Scheduled Referrals Name Type Priority Associated Diagnoses Orde r Schedule PODIATRY REFERRAL OP Referral Within 10 days (routine) Ingrowing toenail Ordered: 12/08/2020 Health Maintenance Due Date Last Done Comments [...] of this encounter Implants Implanted Type Area Wort Extractor Device Identifier Shelf Expiration Date Model / Serial / Lot [employer] Sure Clip Implanted:Qty: 2 on 06/03/2020 by Janis Hatch DO at OR [facility] Clip N/A: Colon 04/21/2022 [facility]-F-[id number] 35-C-[id number] / / [id number] documented as of this encounter Visit Diagnoses Diagnosis Type II diabetes mellitus with peripheral circulatory disorder (HCC)- Primary Type II or unspecified type diabetes mellitus with peripheral circulatory disorders, not stated as uncontrolled Onychomycosis Dermatophytosis of nail Pain due to onychomycosis of toenails of both feet Painful diabetic neuropathy (HCC) Type II or unspecified type diabetes mellitus with neurological manifestations, not stated as uncontrolled documented in this encounter Advance Directives Documents on File Type Date Recorded 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
--- OUTSIDE RECORDS SUMMARY | 2023-05-10 21:21 | External Medical Summary | Summary of Care ---
Author Name Unknown Organization [facility] [place] [address] Care Team Providers Care Speeder Frame Tender Name Role Phone NikAlexandra fernandez Daisha MORENO Primary Care Provider [phone] Reason for Referral * Evaluate & Treat - Unlimited Visits (Within 10 days (routine)) Status Reason Specialty Diagnoses / Procedures Referred By Contact Referred To Contact Closed Specialty Services Required Dermatology Diagnoses Cutaneous skin tags Facial lesion Rajwinder Carter DO [address] [place] [address] Question Answer Referral Priority Within 10 days (routine) Are you referring the patient for Mohs Surgery and have a current positive skin cancer biopsy result? No What is the reason for the patient referral? Other Electronically signed by Rajwinder Carter DO at Reason for Visit * Reason Comments Skin Tags one by left eye, on neck Ingrown Toenail Left foot Great toe Encounter Details Date Type Department Care Team Description 12/23/2020 Office Visit [facility] [address], [place] [id number] Rajwinder Carter DO [address], [place] [id number] Atypical chest pain*; Cutaneous skin tags; Facial lesion; Onychomycosis Allergies Active Allergy Reactions Severity Noted Date Comments Adhesive Tape Itching 04/29/2020 Penicillins Rash 02/12/2008 Perflutren Protein A Microsph 2019 Definity-lower back pain documented as of this encounter (statuses as of 01/05/2021) Medications Medication Sig Dispensed Refills Start Date [...] 120 Vial 11 10/02/2019 Active nystatin (NYSTOP) 511022 UNIT/GM powder Apply topically to affected area [...] AT BEDTIME 90 Tab 1 07/16/2020 Active Ipratropium-Albute rol 0.5-2.5 (3) MG/3ML Inhalation [...] 30 mL 3 08/31/2020 Active Dexcom G6 Hotel Engineer Device Use as directed. To test [...] Strip 3 10/29/2020 Active OneTouch Delica Plus [id number] TESTING once daily 100 Each 3 10/29/2020 [...] as directed 16 g 5 12/23/2020 Active escitalopram (LEXAPRO) 20 MG TabletIndications: Recurrent major depressive disorder, in partial remission (HCC) TAKE 1 TABLET BY MOUTH ONCE DAILY 90 Tab 1 05/21/2020 1 Discontinued Pantoprazole Sodium 20 MG Oral Tablet Delayed Release (PROTONIX)Indicati ons:NAFLD (nonalcoholic fatty liver disease),Other cirrhosis of liver (HCC) Take 2 Tabs by mouth 2 times a day. 180 Tab 1 07/07/2020 1 Discontinued Furosemide 20 MG Oral Tablet (LASIX)Indications :Localized edema,Venous stasis dermatitis of both lower extremities TAKE 1 TABLET BY MOUTH once DAilY NEEDED for edema 90 Tab 1 07/16/2020 1 Discontinued Benzonatate 100 MG Oral Capsule (Tessalon Perles) Take 2 Caps by mouth 3 times a day as needed for Cough for up to 30 days. 90 Cap 0 12/03/2020 1 documented as of this encounter (statuses as of 01/05/2021) Active Problems Problem Noted Date Uncontrolled type [...] as of this encounter (statuses as of 01/05/2021) Resolved Problems Problem Noted Date Resolved Date [...] pain 01/24/2012 01/17/2017 Genetic Sleep Disorder Research Other*[id number] 05/13/2011 04/07/2016 Obstructive sleep apnea 01/18/2011 12/27/19 [...] as of this encounter (statuses as of 01/05/2021) Immunizations Name Administration Dates Next Due COVID-19 [...] Reading Time Taken Comments Blood Pressure 132/80 12/23/2020 2:01 PM EDT Pulse 78 12/23/2020 2:01 PM EDT Temperature 36.6 C (97.8 F) 12/23/2020 2:01 PM ED T Respiratory Rate - - Oxygen Saturation 94% 12/23/2020 2:01 PM EDT Inhaled Oxygen Concentration - - [...] or bathing? 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 She states that she has never heard about a podiatry appt. She states that she wanted to be seen in [place] but was not called to schedule. She has some pain when she hits her toe. She will complain it hurts at times. No drainage. No redness. She has skin tags on her eye and face. She has one on her left eye and her right cheek. She notes no inflammation. They can get caught on things at times. No drainage. PHM: Patient Active Problem List Diagnosis Code Venous insufficiency I87.2 Spinal stenosis of lumbar region without neurogenic claudication M48.061 Cerebral palsy ([facility]) G80.9 HTN, goal below 140/90 I10 Chronic rhinitis J31.0 NG (nonalcoholic steatohepatitis) K75.81 Venous stasis dermatitis of both lower extremities I87.2 DDD (degenerative disc disease), lumbar M51.36 Intermittent asthma with reliever use up to twice per week J45.20 Primary osteoarthritis of right knee M17.11 Lymphedema I89.0 Type 2 diabetes mellitus with hemoglobin A1c goal of less than 7.0% ([facility]) E11.9 Vitamin D deficiency E55.9 Restrictive lung disease J98.4 Obesity, morbid (more than 100 lbs over ideal weight or BMI > 40) ([facility]) E66.01 Dyslipidemia, goal LDL below 70 E78.5 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 R39.81 Acquired hypothyroidism E03.9 Chronic pain syndrome G89.4 MEDICATION USE AGREEMENT [id number] Cirrhosis of liver ([facility]) K74.60 THAD on CPAP G47.33, Z99.89 Wheelchair dependent Z99.3 Pancytopenia ([facility]) D61.818 Ambulatory dysfunction R26.2 DM type 2 with diabetic peripheral neuropathy ([facility]) E11.42 Insomnia G47.00 Recurrent major depressive disorder, in partial remission ([facility]) F33.41 Impaired mobility and ADLs Z74.09, Z78.9 Generalized weakness R53.1 Gastroesophageal reflux disease K21.9 History of Achilles tendon repair Z98.890 Anemia D64.9 Fibromyalgia M79.7 Achilles tendinitis, right leg M76.61 DNR (do not resuscitate) Z66 Thrombocytopenia ([facility]) D69.6 Iron deficiency anemia due to chronic blood loss D50.0 Splenomegaly R16.1 Diabetic ulcer of right great toe ([facility]) E11.621, L97.519 Esophagitis K20.90 Esophageal varices ([facility]) I85.00 Uncontrolled type 2 diabetes mellitus with hyperglycemia ([facility]) E11.65 Current Outpatient Medications Medication Sig Dispense Refill Fluticasone Propionate 50 MCG/ACT Nasal Suspension (Flonase) [...] week 6 mL 3 OneTouch Delica Plus [id number] TESTING once daily 100 Each 3 OneTouch Verio In Vitro Strip (Glucose Blood) TESTING once daily 100 Strip 3 Lidocaine-Prilocaine 2.5-2.5 % External Cream (Emla) Apply topically to affected area as needed forOther (for port). APPLY TO SKIN OVER MEDIPORT & COVER 1HR PRIOR TO ACCESSING. 30 g 3 Nadolol 20 MG Oral Tablet (CORGARD) One daily 90 Tab 1 Dexcom G6 Hotel Engineer Device Use as directed. To test [...] BY MOUTH AT BEDTIME 90 Tab 1 Furosemide 20 MG Oral Tablet (LASIX) TAKE 1 TABLET BY MOUTH once DAilY NEEDED for edema 90 Tab 1 Pantoprazole Sodium 20 MG Oral Tablet Delayed Release (PROTONIX) Take 2 Tabs by mouth 2 times a day. 180 Tab 1 famotidine (PEPCID) 20 MG Tablet Take 1 Tab by mouth every night at bedtime. 34 Tab 0 silver sulfadiazine (SILVADENE) 1 % cream Apply topically to affected area daily. Apply to right great toe 50 g 0 potassium chloride ER 10 MEQ TBCR TAKE 1 TABLET BY MOUTH ONCE DAILY WITH FOOD 90 Tab 3 escitalopram (LEXAPRO) 20 MG Tablet TAKE 1 TABLET BY MOUTH ONCE DAILY 90 Tab 1 Blood Glucose Monitoring Suppl (BLOOD GLUCOSE MONITOR SYSTEM) w/Device KIT Use to test once per day. 1 Kit 0 Albuterol Sulfate (ALBUTEROL HFA) 108 (90 BASE) MCG/ACT inhaler Inhale 2 Puffs by mouth every 4 hours as needed for Cough or Wheezing. With spacer 16 g 1 nystatin (NYSTOP) 206302 UNIT/GM powder Apply topically to affected area [...] by Josh Vazquez MD at OR [facility] DELIVERY 04/20/1982 COLONOSCOPY 04/21/2009 repeat in 10 years COLONOSCOPY, DIAGNOSTIC (RECTUM) 10/04/2016 normal bx, repeat 10 yrs/[facility] COLONOSCOPY, DIAGNOSTIC (RECTUM) N/A 06/03/2020 internal hemorrhoids/biopsies show adenomatous polyps/recall 5 years/COLONOSCOPY FLEXIBLE PROXIMAL DIAGNOSTIC performed by Janis Hatch DO at OR [facility] COLONOSCOPY, DIAGNOSTIC (RECTUM) 03/17/2020 poor prep / [facility] DENTAL SURGERY PROCEDURE NEC wisdom teeth x 4 DILATION AND CURETTAGE (D&C) EGD, FLEXIBLE, DIAGNOSTIC 10/04/2016 gastritis/[facility] EGD, FLEXIBLE, DIAGNOSTIC 01/11/2018 eso varices, retained food, repeat 1 yr/[facility] EGD, FLEXIBLE, DIAGNOSTIC N/A 06/03/2020 severe erosive esophagitis/non-bleeding grade II esophageal varices/gastritis/biopsies show inflammatory changes/repeat 3-4 months/ESOPHAGOGASTRODUODENOSCOPY (EGD), FLEXIBLE, TRANSORAL, DIAGNOSTIC per formed by Janis Hatch DO at OR [facility] EGD, FLEXIBLE, DIAGNOSTIC 11/27/2019 eso varices, portal hypertensive gastropathy, gastritis / [facility] EGD, FLEXIBLE, DIAGNOSTIC N/A 08/05/2020 large amount of food in stomach/repeat 1.5 years/ESOPHAGOGASTRODUODENOSCOPY (EGD), FLEXIBLE, TRANSORAL, DIAGNOSTIC performed by Janis Hatch DO at OR [facility] IR VENOUS ACCESS MEDIPORT 10/05/2020 PELVIS/HIP JOINT SURGERY NEC teenager aid in walking REPAIR/GRAFT ACHILLES TENDON age 40 aid in walking Review of patient's allergies indicates: Allergen Reactions Adhesive Tape Itching Pcn [Penicillins] Rash Perflutren Protein A Microsph Definity-lower back pain Family History Problem Relation Age of Onset Heart Disorder Father of [place] at age 61 Diabetes Father Heart Disorder Mother of [place] age 72 Cancer None Arthritis None Stroke None Heart Disorder Sister Mi at age 46 Hypertension Sister Mental Disorder None Family Status Relation Status Son Alive Sis at age 2 days twin sister Sis Alive Sis Alive Bro Alive Fa Mo NONE (Not Specified) NONE (Not Specified) NONE (Not Specified) Sis (Not Specified) Sis (Not Specified) NONE (Not Specified) Social History Tobacco Use Smoking status: Never Smoker Smokeless tobacco: Never Used Substance Use Topics Alcohol use: No Vaping/E-Cigarette Use Vaping/E-Cigarette Use Never User Vaping/E-Cigarette Substances Nicotine No Other No Flavoring No THC No Cannabidiol (CBD) No Vaping/E-Cigarette Devices Disposable No Pre-filled or Refillable Cartridge No Refillable Tank No Pre-filled Pod No REVIEW OF SYSTEMS: Review of Systems Constitutional: Negative for chills, fatigue, fever and unexpected weight change. Respiratory: Negative for cough, chest tightness, shortness of breath and wheezing. Cardiovascular: Positive for chest pain. Negative for palpitations and leg swelling. Gastrointestinal: Negative for abdominal pain, constipation, diarrhea, nausea and vomiting. Musculoskeletal: Negative for arthralgias, gait problem and joint swelling. Skin: Negative for color change, pallor and rash. As per HPI OBJECTIVE: BP 132/80 (BP Site: Left Arm, BP Position: Sitting, BP Cuff Size: Regular) | Pulse 78 | Temp 36.6 C (97.8 F) (Tympanic) | SpO2 94% PHYSICAL EXAM: Physical Exam Constitutional: General: She is not in acute distress. Appearance: She is well-developed. Cardiovascular: Rate and Rhythm: Normal rate and regular rhythm. Heart sounds: Normal heart sounds. No murmur. No friction rub. No gallop. Pulmonary: Effort: Pulmonary effort is normal. No respiratory distress. Breath sounds: Normal breath sounds. No wheezing or rales. Abdominal: General: Bowel sounds are normal. There is no distension. Palpations: Abdomen is soft. Tenderness: There is no abdominal tenderness. There is no guarding. Musculoskeletal: Normal range of motion. General: No tenderness or deformity. Skin: General: Skin is warm and dry. Coloration: Skin is not pale. Findings: No erythema or rash. Comments: Onychomycosis of great toenail, several skin tags on face Neurological: Mental Status: She is alert and oriented to person, place, and time. ASSESSMENT/PLAN: (R07.89) Atypical chest pain (primary encounter diagnosis) Plan: EKG EKG with no acute issues. Unchanged from previous. Reassurance provided. (L91.8) Cutaneous skin tags (L98.9) Facial lesion Plan: DERMATOLOGY REFERRAL OP Pt will see dermatology for further evaluation of skin lesions and for removal. (B35.1) Onychomycosis Plan: Pt has had several referrals placed for podiatry but has not scheduled. desktop support engineer asked to help schedule while she is in office today. Follow-up: with PCP as scheduled Rajwinder Carter DO documented in this encounter Procedure Notes * Jayme Uribe DO - 12/23/2020 2:52 PM EDT Associated Order(s): EKG REASON FOR STUDY: atypical chest pain CONCLUSIONS: Normal sinus rhythm with 1st degree AV block Inferior infarct , age undetermined Abnormal ECG When compared with ECG of 19-NOV-2020 18:26, Junctional rhythm has replaced Sinus rhythm Ventricular Rate: 67 Atrial Rate: 67 QRS Duration: 94 QT/QTc: 420/443 ms P-R-T [place]: 0 : -7 : 32 degrees documented in this encounter Nursing Notes * Tamara Fabian LPN - 12/23/2020 2:04 PM EDT Chief Complaint Patient presents with Skin Tags one by left eye, on neck Ingrown Toenail Left foot Great toe documented in this encounter Plan of Treatment Upcoming Encounters Date Type Specialty Care Team Description 01/12/2021 Office Visit Podiatry Prakash Martino, SIRENA [address] [place] [address] 01/15/2021 Immunization/Injection Hematology Oncolog y Maryellen, Chair [address] Hem Onc [address] [address] [phone] 01/21/2021 Office Visit Gastroenterology Lyssa Stout CRNP [address] [place] [address] [phone] 01/25/2021 Office Visit Pharmacy [facility] [address], [place] [id number] 03/03/2021 Nutrition Services Gastroenterology Melissa Omalley, RDN [address] [place] [address] 03/04/2021 Office Visit Family Medicine Alexandra Caceres DO [address] [place] [address] [phone] 07/06/2021 Office Visit Hematology Oncology Tono Sanchez MD [address] [place] [address] [phone] 09/09/2021 Imaging Radiology Scheduled Referrals Name Type Priority Associated Diagnoses Orde r Schedule DERMATOLOGY REFERRAL OP Referral Within 10 days (routine) Cutaneous skin tags Facial lesion Ordered: 12/23/2020 Health Maintenance Due Date Last Done Comments [...] of this encounter Implants Implanted Type Area Slackline Operator Device Identifier Shelf Expiration Date Model / Serial / Lot [employer] Sure Clip Implanted:Qty: 2 on 06/03/2020 by Janis Hatch DO at OR H Clip N/A: Colon 04/21/2022 [facility]-F-26-2 35-C-R / / [id number] documented as of this encounter Procedures Procedure Name Priority Date/Time Associated Diagnosis Comments TX ECG ROUTINE ECG W/LEAST 12 LDS W/I&R Routine 12/23/2020 2:52 PM EDT Atypical chest pain documented in this encounter Results * EKG (12/23/2020 2:52 PM EDT) Specimen Procedure Note Jayme Uribe, DO - 12/23/2020 2:52 PM EDT REASON FOR STUDY: atypical chest pain CONCLUSIONS: Normal sinus rhythm with 1st degree AV block Inferior infarct , age undetermined Abnormal ECG When compared with ECG of 19-NOV-2020 18:26, Junctional rhythm has replaced Sinus rhythm Ventricular Rate: 67 Atrial Rate: 67 QRS Duration: 94 QT/QTc: 420/443 ms P-R-T [place]: 0 : -7 : 32 degrees Performing Organization Address City/State/[facility] Co de Phone Number 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
--- OUTSIDE RECORDS SUMMARY | 2023-05-10 21:21 | External Medical Summary | Summary of Care ---
Author Name Unknown Organization [facility] Address [place] [address] Care Team Providers Care Measurement Analyst Name Role Phone QamarAlexandra mcdonough Daisha MORENO Primary Care Provider [phone] Reason for Referral * Evaluate & Treat - Unlimited Visits (Within 10 days (routine)) Status Reason Specialty Diagnoses / Procedures Referred By Contact Referred To Contact Closed Specialty Services Required Dermatology Diagnoses Cutaneous skin tags Facial lesion Rajwinder Carter DO [address] [place] [address] Question Answer Referral Priority Within 10 days [...] Department Care Team Description 12/23/2020 Office Visit [facility] [address], [place] [id number] Rajwinder Carter DO [address], [place] [id number] Atypical chest pain*; Cutaneous skin tags; Facial lesion; Onychomycosis Allergies Active Allergy Reactions Severity Noted Date Comments Adhesive Tape Itching 04/29/2020 Penicillins Rash 02/12/2008 Perflutren Protein A Microsph 2019 Definity-lower back pain documented as of this encounter (statuses as of 01/04/2021) Medications Medication Sig Dispensed Refills Start Date [...] 120 Vial 11 10/02/2019 Active nystatin (NYSTOP) 257007 UNIT/GM powder Apply topically to affected area [...] 30 mL 3 08/31/2020 Active Dexcom G6 Felting Machine Operator Helper Device Use as directed. To [...] Strip 3 10/29/2020 Active OneTouch Delica Plus [id number] TESTING once daily 100 Each 3 10/29/2020 [...] as of this encounter (statuses as of 01/04/2021) Active Problems Problem Noted Date Uncontrolled type [...] as of this encounter (statuses as of 01/04/2021) Resolved Problems Problem Noted Date Resolved Date [...] pain 01/24/2012 01/17/2017 Genetic Sleep Disorder Research Other*[id number] 05/13/2011 04/07/2016 Obstructive sleep apnea 01/18/2011 12/27/19 [...] as of this encounter (statuses as of 01/04/2021) Immunizations Name Administration Dates Next Due COVID-19 [...] or bathing? 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 She [...] region without neurogenic claudication M48.061 Cerebral palsy ([facility]) G80.9 HTN, goal below 140/90 I10 Chronic rhinitis J31.0 NG (nonalcoholic steatohepatitis) K75.81 Venous stasis dermatitis of both lower extremities I87.2 DDD (degenerative disc disease), lumbar M51.36 Intermittent asthma with reliever use up to twice per week J45.20 Primary osteoarthritis of right knee M17.11 Lymphedema I89.0 Type 2 diabetes mellitus with hemoglobin A1c goal of less than 7.0% ([facility]) E11.9 Vitamin D deficiency E55.9 Restrictive lung disease J98.4 Obesity, morbid (more than 100 lbs over ideal weight or BMI > 40) ([facility]) E66.01 Dyslipidemia, goal LDL below 70 E78.5 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 R39.81 Acquired hypothyroidism E03.9 Chronic pain syndrome G89.4 MEDICATION USE AGREEMENT [id number] Cirrhosis of liver ([facility]) K74.60 THAD on CPAP G47.33, Z99.89 Wheelchair dependent Z99.3 Pancytopenia ([facility]) D61.818 Ambulatory dysfunction R26.2 DM type 2 with diabetic peripheral neuropathy ([facility]) E11.42 Insomnia G47.00 Recurrent major depressive disorder, in partial remission ([facility]) F33.41 Impaired mobility and ADLs Z74.09, Z78.9 Generalized weakness R53.1 Gastroesophageal reflux disease K21.9 History of Achilles tendon repair Z98.890 Anemia D64.9 Fibromyalgia M79.7 Achilles tendinitis, right leg M76.61 DNR (do not resuscitate) Z66 Thrombocytopenia ([facility]) D69.6 Iron deficiency anemia due to chronic blood loss D50.0 Splenomegaly R16.1 Diabetic ulcer of right great toe ([facility]) E11.621, L97.519 Esophagitis K20.90 Esophageal varices ([facility]) I85.00 Uncontrolled type 2 diabetes mellitus with hyperglycemia ([facility]) E11.65 Current Outpatient Medications Medication Sig Dispense [...] week 6 mL 3 OneTouch Delica Plus Pwhnzp13X TESTING once daily 100 Each 3 OneTouch Verio In Vitro Strip (Glucose Blood) TESTING once daily 100 Strip 3 Lidocaine-Prilocaine 2.5-2.5 % External Cream (Emla) Apply topically to affected area as needed forOther (for port). APPLY TO SKIN OVER MEDIPORT & COVER 1HR PRIOR TO ACCESSING. 30 g 3 Nadolol 20 MG Oral Tablet (CORGARD) One daily 90 Tab 1 Dexcom G6 Felting Machine Operator Helper Device Use as directed. To [...] With spacer 16 g 1 nystatin (NYSTOP) 606428 UNIT/GM powder Apply topically to affected area [...] by Josh Vazquez MD at OR [facility] DELIVERY 04/20/1982 COLONOSCOPY 04/21/2009 repeat in 10 years COLONOSCOPY, DIAGNOSTIC (RECTUM) 10/04/2016 normal bx, repeat 10 yrs/[facility] COLONOSCOPY, DIAGNOSTIC (RECTUM) N/A 06/03/2020 internal hemorrhoids/biopsies show adenomatous polyps/recall 5 years/COLONOSCOPY FLEXIBLE PROXIMAL DIAGNOSTIC performed by Janis Hatch DO at OR [facility] COLONOSCOPY, DIAGNOSTIC (RECTUM) 03/17/2020 poor prep / [facility] DENTAL SURGERY PROCEDURE NEC wisdom teeth x 4 DILATION AND CURETTAGE (D&C) EGD, FLEXIBLE, DIAGNOSTIC 10/04/2016 gastritis/[facility] EGD, FLEXIBLE, DIAGNOSTIC 01/11/2018 eso varices, retained food, repeat 1 yr/[facility] EGD, FLEXIBLE, DIAGNOSTIC N/A 06/03/2020 severe erosive esophagitis/non-bleeding grade II esophageal varices/gastritis/biopsies show inflammatory changes/repeat 3-4 months/ESOPHAGOGASTRODUODENOSCOPY (EGD), FLEXIBLE, TRANSORAL, DIAGNOSTIC per formed by Janis Hatch DO at OR [facility] EGD, FLEXIBLE, DIAGNOSTIC 11/27/2019 eso varices, portal hypertensive gastropathy, gastritis / [facility] EGD, FLEXIBLE, DIAGNOSTIC N/A 08/05/2020 large amount of food in stomach/repeat 1.5 years/ESOPHAGOGASTRODUODENOSCOPY (EGD), FLEXIBLE, TRANSORAL, DIAGNOSTIC performed by Janis Hatch DO at OR [facility] IR VENOUS ACCESS MEDIPORT 10/05/2020 PELVIS/HIP JOINT SURGERY NEC teenager aid in walking REPAIR/GRAFT ACHILLES TENDON age 40 aid in walking Review of patient's allergies indicates: Allergen Reactions Adhesive Tape Itching Pcn [Penicillins] Rash Perflutren Protein A Microsph Definity-lower back pain Family History Problem Relation Age of Onset Heart Disorder Father of DC at age 61 Diabetes Father Heart Disorder Mother of DC age 72 Cancer None Arthritis None Stroke [...] placed for podiatry but has not scheduled. help desk support asked to help schedule while she is [...] QRS Duration: 94 QT/QTc: 420/443 ms P-R-T [place]: 0 : -7 : 32 degrees documented in this encounter Nursing Notes * Tamara Fabian LPN - 12/23/2020 2:04 PM EDT Chief Complaint Patient presents with Skin Tags one by left eye, on neck Ingrown Toenail Left foot Great toe documented in this encounter Plan of Treatment Upcoming Encounters Date Type Specialty Care Team Description 01/12/2021 Office Visit Podiatry Prakash Martino, SIRENA [address] [place] [address] 01/15/2021 Immunization/Injection Hematology Oncolog y Maryellen, Chair [address] [address] [phone] 01/21/2021 Office Visit Gastroenterology Lyssa Stout CRNP [address] [place] [address] [phone] 01/25/2021 Office Visit Pharmacy [facility] [address], [place] [id number] 03/03/2021 Nutrition Services Gastroenterology Melissa Omalley, RDN [address] [place] [address] 03/04/2021 Office Visit Family Medicine Alexandra Caceres DO [address] [place] [address] [phone] 07/06/2021 Office Visit Hematology Oncology Tono Sanchez MD [address] [place] [address] [phone] 09/09/2021 Imaging Radiology Scheduled Referrals Name Type [...] of this encounter Implants Implanted Type Area Deckhand Device Identifier Shelf Expiration Date Model / Serial / Lot Microtech Sure Clip Implanted:Qty: 2 on 06/03/2020 by Janis Hatch DO at OR H Clip N/A: Colon 04/21/2022 [facility]-F-26-2 35-C-R / / [id number] documented as of this encounter Procedures Procedure Name Priority Date/Time Associated Diagnosis Comments [place] ECG ROUTINE ECG W/LEAST 12 LDS W/I&R [...] QRS Duration: 94 QT/QTc: 420/443 ms P-R-T [place]: 0 : -7 : 32 degrees Performing Organization Address City/State/[facility] Co de Phone Number [facility] documented in this encounter Visit Diagnoses Diagnosis Atypical chest pain- Primary Other chest pain Cutaneous skin tags Unspecified hypertrophic and atrophic condition of skin Facial lesion Unspecified disorder of skin and subcutaneous tissue Onychomycosis Dermatophytosis of nail documented in this encounter Advance Directives Documents on File Type Date Recorded 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
--- OUTSIDE RECORDS SUMMARY | 2023-05-10 21:22 | External Medical Summary | Summary of Care ---
Author Name Unknown Organization [place] [address] Care Team Providers Care Limerock Tower Loader Name Role Phone CarlosjoseMaikel mcdonough Primary Care Provider [phone] Reason for Visit * Reason Comments Follow Up pt here for for skin tags on face and eyes * Evaluate & Treat - Unlimited Visits (Within 10 days (routine)) Status Reason Specialty Diagnoses / Procedures Referred By Contact Referred To Contact Closed Specialty Services Required Dermatology Diagnoses Cutaneous skin tags Facial lesion Rajwinder Lara, [address] [place] [address] Encounter Details Date Type Department Care Team Description 12/25/2020 Office Visit Dermatology Jesús Bojorquez [place] [address] [facility] [place] [address] Jacqueline Jones MD [address] [place] [place] [address] [phone] Skin tag*; Seborrheic keratosis Allergies Active Allergy Reactions Severity Noted Date Comments Adhesive Tape Itching 04/29/2020 Penicillins Rash 02/12/2008 Perflutren Protein A Microsph 2019 Definity-lower back pain documented as of this encounter (statuses as of 12/25/2020) Medications Medication Sig Dispensed Refills Start Date [...] 120 Vial 11 10/02/2019 Active nystatin (NYSTOP) 470579 UNIT/GM powder Apply topically to affected area [...] per day. 1 Kit 0 11/19/2019 Active escitalopram (LEXAPRO) 20 MG TabletIndications:Re current major depressive disorder, in partial remission (HCC) TAKE 1 TABLET BY MOUTH ONCE DAILY 90 Tab 1 05/21/2020 Active potassium chloride ER 10 MEQ TBCRIndications:Hypo kalemia TAKE 1 TABLET BY MOUTH ONCE DAILY WITH FOOD 90 Tab 3 05/25/2020 Active silver sulfadiazine (SILVADENE) 1 % cream Apply topically to affected area daily. Apply to right great toe 50 g 0 05/26/2020 Active famotidine (PEPCID) 20 MG Tablet Take 1 Tab by mouth every night at bedtime. 34 Tab 0 05/29/2020 Active Pantoprazole Sodium 20 MG Oral Tablet Delayed Release (PROTONIX)Indication s:NAFLD (nonalcoholic fatty liver disease),Other cirrhosis of liver (HCC) Take 2 Tabs by mouth 2 times a day. 180 Tab 1 07/07/2020 Active Furosemide 20 MG Oral Tablet (LASIX)Indications:L ocalized edema,Venous stasis dermatitis of both lower extremities TAKE 1 TABLET BY MOUTH once DAilY NEEDED for edema 90 Tab 1 07/16/2020 Active Atorvastatin Calcium 40 MG Oral Tablet [...] 30 mL 3 08/31/2020 Active Dexcom G6 Image Scientist Device Use as directed. To test blood [...] Strip 3 10/29/2020 Active OneTouch Delica Plus Neycfw64B TESTING once daily 100 Each 3 10/29/2020 [...] UNIT/ML Subcutaneous Solution Pen-injector 0 12/15/2020 Active documented as of this encounter (statuses as of 12/25/2020) Active Problems Problem Noted Date Uncontrolled type [...] as of this encounter (statuses as of 12/25/2020) Resolved Problems Problem Noted Date Resolved Date [...] pain 01/24/2012 01/17/2017 Genetic Sleep Disorder Research Other*[id number] 05/13/2011 04/07/2016 Obstructive sleep apnea 01/18/2011 12/27/19 [...] as of this encounter (statuses as of 12/25/2020) Immunizations Name Administration Dates Next Due COVID-19 [...] or bathing? 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-senior clinical consultant helps 07/15/2020 Because of a physical, menta [...] as of this encounter Progress Notes * Jacqueilne Jones MD - 12/25/2020 1:45 PM EDT SUBJECTIVE: History of Present Illness: Shaina Bustos is a 65 year old female seen today for new lesions. Last Office/Telemedicine Visit: 08/23/2018-pt known to Dr. Hill. Pt has no history of skin cancer. New concerns today include: skin tags by the right and left eye and on the right cheek and neck x months, no treatment and not bothersome. Accompanied today by her . REVIEW OF SYSTEMS: SKIN: No other new or changing moles. HEME/LYMPH: No new or enlarging lumps or bumps. CONSTITUTIONAL: No nausea, vomiting, fevers, chills, diarrhea. No recent unintended weight loss, night sweats, appetite or malaise. MEDICA TIONS: Current Outpatient Medications Medication Sig Dispense Refill [...] week 6 mL 3 OneTouch Delica Plus [id number] TESTING once daily 100 Each 3 OneTouch Verio In Vitro Strip (Glucose Blood) TESTING once daily 100 Strip 3 Lidocaine-Prilocaine 2.5-2.5 % External Cream (Emla) Apply topically to affected area as needed forOther (for port). APPLY TO SKIN OVER MEDIPORT & COVER 1HR PRIOR TO ACCESSING. 30 g 3 Nadolol 20 MG Oral Tablet (CORGARD) One daily 90 Tab 1 Dexcom G6 Image Scientist Device Use as directed. To test blood [...] With spacer 16 g 1 nystatin (NYSTOP) 493579 UNIT/GM powder Apply topically to affected area 3 times a day. 60 g 1 albuterol sulfate (PROVENTIL) (2.5 MG/3ML) 0.083% nebulizer solution Inhale 1 Vial via nebulizer every 6 hours as needed for Wheezing. 120 Vial 11 vitamin c (ASCORBIC ACID) 500 MG Tablet Take 500 mg by mouth daily. CENTRUM SILVER PO TABS Take 1 Tab by mouth daily. 1 Tab 0 ALLERG IES: Adhesive tape, Pcn [penicillins], and Perflutren protein a microsph PAST MEDICAL HISTORY: Past Medical History: Diagnosis Date Cerebral palsy ([facility]) 01/24/2012 Chronic constipation Chronic hypoxemic respiratory failure ([facility]) 04/08/2019 Chronic pain 03/27/2012 Cirrhosis of liver ([facility]) 11/20/2017 DDD (degenerative disc disease), lumbar [...] less than 7.0% ([facility]) 09/26/2013 ICD-10 update of inactive term OBJECTIVE: GEN: alert, no distress, appears oriented, obese, pleasant, cooperative and in a wheel chair. SKIN: Detailed exam of hair, face including lids and lips and neck completed and are normal except: 1. Flesh-colored pedunculated papule on the right lateral canthus and left lateral canthus and right neck 2. brown keratotic plaque with a stuck on appearance and horn cysts present on the right lateral cheek, right neck ASSESS MENT/PLAN: 1. Skin tags-Benign nature was discussed and no further intervention needed. Advised to call with any changes. Discussed option of snip removal if bothersome, but pt declines 2. Seborrheic/Benign Keratosis(-es)-Benign nature was discussed and no further intervention needed.Advised to call with any changes. Follow-up: as needed There were no barriers tolearning and no other pain was related to today's visit. The patient and/or person accompanying patient demonstrates understanding of the visit and treatment. Jacqueline Jones MD Ref: RAJWINDER LARA[[id number]] [address] [place] [address] (office) [phone] (fax) PCP: MAIKEL CACERES [address] [place] [address] documented in this encounter Nursing Notes * Kike Fregoos LPN - 12/25/2020 2:03 PM EDT Patient identified by name and date. Chief Complaint Patient presents with Follow Up pt here for for skin tags on face and eyes Reports dry skin on legs documented in this encounter Plan of Treatment Upcoming Encounters Date Type Specialty Care Team Description 01/01/2021 Office Visit Hematology Oncology Tono Sanchez MD [address] [place] [address] [phone] 01/12/2021 Office Visit Podiatry Prakash Martino, DPBelen [address] [place] [address] 01/15/2021 Immunization/Injection Hematology Oncolog y Maryellen, Chair 3 Hem Onc [facility] [address] [place] [address] [phone] 01/21/2021 Office Visit Gastroenterology Lyssa Stout CRNP [address] [place] [address] [phone] 01/25/2021 Office Visit Pharmacy [facility] [address], [place] [id number] 03/03/2021 Nutrition Services Gastroenterology Melissa Omalley, SAMANTHA [address] [place] [address] [phone] 03/04/2021 Office Visit Family Medicine Maikel Caceres DO [address] [place] [address] [phone] 09/09/2021 Imaging Radiology Health Maintenance Due Date [...] of this encounter Implants Implanted Type Area Extension Worker Device Identifier Shelf Expiration Date Model / Serial / Lot Microtech Sure Clip Implanted:Qty: 2 on 06/03/2020 by Janis Hatch DO at OR [facility] Clip N/A: Colon 04/21/2022 [facility]-F-26-2 35-C-R / / [id number] documented as of this encounter Visit Diagnoses Diagnosis Skin tag- Primary Unspecified hypertrophic and atrophic condition of skin Seborrheic keratosis Other seborrheic keratosis documented in this encounter Advance Directives Documents on File Type Date Recorded 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
--- OUTSIDE RECORDS SUMMARY | 2023-05-10 21:22 | External Medical Summary | Summary of Care ---
Author Name Unknown Organization [place] [address] Care Team Providers Care Patient Observation Assistant Name Role Phone NikMaikel fernandez Daisha MORENO Primary Care Provider [phone] Reason for Visit * Reason Comments eRx-Medication Refill Encounter Details Date Type Department Care Team Description 12/27/2020 Refill [place] [address] [place], [place] [id number] Rajwinder Lara DO [address] [place] [address] [phone] Recurrent major depressive disorder, in partial remission (HCC); NAFLD (nonalcoholic fatty liver disease); Other cirrhosis of liver (HCC) Allergies Active Allergy Reactions Severity Noted Date Comments Adhesive Tape Itching 04/29/2020 Penicillins Rash 02/12/2008 Perflutren Protein A Microsph 2019 Definity-lower back pain documented as of this encounter (statuses as of 12/29/2020) Medications Medication Sig Dispensed Refills Start Date [...] 120 Vial 11 10/02/2019 Active nystatin (NYSTOP) 644397 UNIT/GM powder Apply topically to affected area [...] [facility]) Inject 25 units under the skin once a day 30 mL 3 08/31/2020 Active Dexcom G6 Security Risk Analyst Device Use as directed. To test [...] TO ACCESSING. 30 g 3 10/09/2020 Active [employer] Verio In Vitro Strip (Glucose Blood) TESTING once daily 100 Strip 3 10/29/2020 Active DoximityTouch Delica Plus Hiphml32H TESTING once daily 100 Each 3 10/29/2020 [...] 30 days. 90 Cap 0 12/03/2020 1 Active BD Pen Needle Mini U/F [...] TWICE DAILY 180 Tab 1 12/29/2020 Active escitalopram (LEXAPRO) 20 MG TabletIndications: Recurrent [...] edema 90 Tab 1 07/16/2020 1 Discontinued documented as of this encounter (statuses as of 12/29/2020) Active Problems Problem Noted Date Uncontrolled type [...] as of this encounter (statuses as of 12/29/2020) Resolved Problems Problem Noted Date Resolved Date [...] pain 01/24/2012 01/17/2017 Genetic Sleep Disorder Research Other*[id number] 05/13/2011 04/07/2016 Obstructive sleep apnea 01/18/2011 12/27/19 [...] as of this encounter (statuses as of 12/29/2020) Immunizations Name Administration Dates Next Due COVID-19 [...] or bathing? 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-copy reader helps 07/15/2020 Because of a physical, menta [...] Telephone Encounter - Maikel Caceres DO - 12/29/2020 8:43 AM EDT Signed Prescriptions: Disp Refills Escitalopram Oxalate 20 MG Oral Tablet (Le*90 Tab 3 Sig: TAKE 1 TABLET BY MOUTH ONCE DAILY Authorizing Provider: RAJWINDER LARA Ordering User: ANTONI HALL Pantoprazole Sodium 20 MG Oral Tablet Kandi*180 Tab1 Sig: TAKE 2 TABLETS BY MOUTH TWICE DAILY Authorizing Provider: MAIKEL CACERES * Telephone Encounter - Antoni Hall RP - 12/28/2020 3:14 PM EDT Pending Prescriptions: Disp Refills Pantoprazole Sodium 20 MG Oral Tablet Del*180 Tab1 Sig: TAKE 2 TABLETS BY MOUTH TWICE DAILY Signed Prescriptions: Disp Refills Escitalopram Oxalate 20 MG Oral Tablet (Le*90 Tab 3 Sig: TAKE 1 TABLET BY MOUTH ONCE DAILY Authorizing Provider: RAJWINDER LARA Ordering User: ANTONI HALL * Telephone Encounter - Antoni Hall RP - 12/28/2020 3:13 PM EDT Last prescribed by hospitalist when discharged on 07/07/20. Please review and refill if appropriate. Thanks, Antoni Hall, PharmD Clinical Pharmacist Telepharmacy 12/28/2020, 3:14 PM * Telephone Encounter - Antoni Hall RP - 12/28/2020 3:11 PM EDT Pending Prescriptions: Disp Refills Pantoprazole Sodium 20 MG Oral Tablet Del*180 Tab1 Sig: TAKE 2 TABLETS BY MOUTH TWICE DAILY Signed Prescriptions: Disp Refills Escitalopram Oxalate 20 MG Oral Tablet (Le*90 Tab 3 Sig: TAKE 1 TABLET BY MOUTH ONCE DAILY Authorizing Provider: RAJWINDER LARA Ordering User: ANTONI HALL Last Office/Telemedicine Visit: 12/23/2020 Next Office Visit: 03/04/2021 Scheduled Provider(s): Maikel Caceres, DO If no future appointments scheduled, and last appointment is greater than a year ago, please schedule patient for a follow-up appointment Last date the medication was ordered: 07/07/20 Pharmacy: [facility] [id number] Is this request for a controlled substance? No Urine Drug Screen:No results found. However, due [...] Visit Hematology Oncology Tono Sanchez MD [address] [place] [address] [phone] 01/12/2021 Office Visit Podiatry Prakash Martino DPM [address] [place], [place] [id number] 01/15/2021 Immunization/Injection Hematology Oncolog lisa Bojorquez, Chair [address] [address] [phone] 01/21/2021 Office Visit Gastroenterology Lyssa Sotut CRNP [address] [facility] [place] [address] [phone] 01/25/2021 [place] [address] [address] [phone] 03/03/2021 Nutrition Services Gastroenterology Melissa Omalley RDN [address] [place] [address] [phone] 03/04/2021 Office Visit Family Medicine Maikel Caceres, DO [address] [facility] [place] [place] [id number] 09/09/2021 Imaging Radiology Health Maintenance Due Date [...] of this encounter Implants Implanted Type Area Cable Installation Technician Device Identifier Shelf Expiration Date Model / Serial / Lot Microtech Sure Clip Implanted:Qty: 2 on 06/03/2020 by Janis Hatch DO at OR [facility] Clip N/A: Colon 04/21/2022 [facility]-F-26-2 35-C-R / / [id number] documented as of this encounter Visit Diagnoses Diagnosis Recurrent major depressive disorder, in partial remission (HCC) NAFLD (nonalcoholic fatty liver disease) Other chronic nonalcoholic liver disease Other cirrhosis of liver (HCC) documented in this encounter Advance Directives Documents on File Type Date Recorded Patient Research Methodologist Expl anation Advanced Directive service a kerri [...]
--- OUTSIDE RECORDS SUMMARY | 2023-05-10 21:22 | External Medical Summary | Summary of Care ---
Author Name Unknown Organization [facility] Address [place] [address] Care Team Providers Care Oyster Culturist Name Role Phone Maikel Caceres DO Primary Care Provider Reason for Visit * Reason Comments eRx-Medication Refill Encounter Details Date Type Department Care Team Description 12/27/[address] [address] Maikel Caceres DO [address] [place] [address] [phone] Localized edema; Venous stasis dermatitis of both lower extremities Allergies Active Allergy Reactions Severity Noted Date Comments Adhesive Tape Itching 04/29/2020 Penicillins Rash 02/12/2008 Perflutren Protein A Microsph 2019 Definity-lower back pain documented as of this encounter (statuses as of 12/28/2020) Medications Medication Sig Dispensed Refills Start Date [...] 120 Vial 11 10/02/2019 Active nystatin (NYSTOP) 462084 UNIT/GM powder Apply topically to affected area [...] a day. 180 Tab 1 07/07/2020 Active Atorvastatin Calcium 40 MG Oral Tablet [...] than 7.0% ([facility]) Inject 25 units under the skin once a day 30 mL 3 08/31/2020 Active Dexcom G6 Fisheries Manager Device Use as directed. To test [...] TO ACCESSING. 30 g 3 10/09/2020 Active MedNet SolutionsToCrispify Verio In Vitro Strip (Glucose Blood) TESTING once daily 100 Strip 3 10/29/2020 Active MedNet SolutionsTouch Delica Plus [id number] TESTING once daily 100 Each 3 10/29/2020 [...] 11/30/2020 Active Benzonatate 100 MG Oral Capsule (Tessalrosi Perlmelia) Take 2 Caps by mouth 3 times [...] for edema 90 Tab 3 12/28/2020 Active Furosemide 20 MG Oral Tablet (LASIX)Indications :Localized edema,Venous stasis dermatitis of both lower extremities TAKE 1 TABLET BY MOUTH once DAilY NEEDED for edema 90 Tab 1 07/16/2020 1 Discontinued documented as of this encounter (statuses as of 12/28/2020) Active Problems Problem Noted Date Uncontrolled type [...] as of this encounter (statuses as of 12/28/2020) Resolved Problems Problem Noted Date Resolved Date [...] pain 01/24/2012 01/17/2017 Genetic Sleep Disorder Research Other*[id number] 05/13/2011 04/07/2016 Obstructive sleep apnea 01/18/2011 12/27/19 [...] as of this encounter (statuses as of 12/28/2020) Immunizations Name Administration Dates Next Due COVID-19 [...] or bathing? 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-steward/stewardess tourist class helps 07/15/2020 Because of a physical, menta [...] encounter Miscellaneous Notes * Telephone Encounter - Joe Hall RPh - 12/28/2020 3:15 PM EDT Signed Prescriptions: Disp Refills Furosemide 20 MG Oral Tablet (Lasix) 90 Tab 3 Sig: TAKE 1 TABLETBY MOUTH EVERY DAY NEEDED for edemaAuthorizing Provider: MAIKEL CACERES User: Niya HALL documented in this encounter Plan of Treatment Upcoming Encounters Date Type Specialty Care Team Description 01/01/2021 Office Visit Hematology Oncology Tono Sanchez MD [address] [facility] [place] [address] [phone] 01/12/2021 Office Visit Podiatry Prakash Martino DPM [address] [place] [address] 01/15/2021 Immunization/Injection Hematology Oncolog lisa Bojorquez, Chair 3 Hem Onc [facility] [address] [place] [address] [phone] 01/21/2021 Office Visit Gastroenterology Girish, Lyssa Salim, TEACHER ADULT EDUCATION [address] [facility] [place] [address] [phone] 01/25/2021 Office Visit Pharmacy [facility] [address] [facility] [id number] 03/03/2021 Nutrition Services Gastroenterology Melissa Omalley, [place] [address] [place] [address] [phone] 03/04/2021 Office Visit Family Medicine Maikel Caceres DO [address] [facility] [address] 09/09/2021 Imaging Radiology Health Maintenance Due Date [...] encounter Implants Implanted Type Area Professor Of Exercise Science Device Identifier Shelf Expiration Date Model / Serial / Lot Microtech Sure Clip Implanted:Qty: 2 on 06/03/2020 by Janis Hatch DO at OR [facility] Clip N/A: Colon 04/21/2022 [facility]-F-26-2 35-C-R / / [id number] documented as of this encounter Visit Diagnoses Diagnosis Localized edema Edema Venous stasis dermatitis of both lower extremities documented in this encounter Advance Directives Documents on File Type Date Recorded Patient Parking Officer Expl anation Advanced Directive service a [...]
--- OUTSIDE RECORDS SUMMARY | 2023-05-10 21:22 | External Medical Summary | Summary of Care ---
Author Name Unknown Organization [facility] Address [place] [address] Care Team Providers Care State Tested Nursing Assistant Name Role Phone Alexandra Caceres DO Primary Care Provider Reason for Visit * Reason Onset Date Comments Advice 01/01/2021 Encounter Details Date Type Department Care Team Description 01/01/2021 Telephone [facility] [address] [place] [address] Alexandra Caceres DO [address] [place] [address] [phone] Advice Allergies Active Allergy Reactions Severity Noted [...] 120 Vial 11 10/02/2019 Active nystatin (NYSTOP) 290684 UNIT/GM powder Apply topically to affected area [...] than 7.0% ([facility]) Inject 25 units under the skin once a day 30 mL 3 08/31/2020 Active Dexcom G6 Project Scientist Device Use as directed. To test [...] Strip 3 10/29/2020 Active OneTouch Delica Plus [id number] TESTING once daily 100 Each 3 10/29/2020 [...] pain 01/24/2012 01/17/2017 Genetic Sleep Disorder Research Other*[id number] 05/13/2011 04/07/2016 Obstructive sleep apnea 01/18/2011 12/27/19 [...] or bathing? 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-instructional aide helps 07/15/2020 Because of a physical, menta [...] encounter Miscellaneous Notes * Telephone Encounter - Stefany Holman RPh - 01/01/2021 2:55 PM EDT Patient Phone Numbers Spoke to patient and via phone. Patient states BG values are consistently in the 200s and still into the 400s. Patient's states patient is doing Novolog 32 units with breakfast and lunch and 28 units with dinner. Recommending to change to the following: INCREASE: Novolog, Inject 35 units before breakfast, 35 units before lunch, and 30 units before supper Lantus pen, 25 units daily Metformin 1000mg, 1 tablet twice a day Trulicity 3mg SQ weekly GFR >60 as of 09/24/20 Patient to call back if BG values continues to be elevated. * Telephone Encounter - Kiesha Schmitt LPN - 01/01/2021 2:52 PM EDT Will you advise pt? Seen by MTM * Telephone Encounter - Shahnaz Jeronimo OSA - 01/01/2021 1:59 PM EDT Patient states that her blood sugar is 208. She would like to know what to do about this. Please advise. Patient can be contacted at [phone]. If no answer there you can call husbands number at [phone]. documented in this encounter Plan of Treatment Upcoming Encounters Date Type Specialty Care Team Description 01/12/2021 Office Visit Podiatry Prakash Martino, DPM [address] [place] [address] 01/15/2021 Immunization/Injection Hematology Oncolog y Maryellen, Chair 3 Hem Onc [address] [address] [place] [facility] [place] [address] [phone] 01/21/2021 Office Visit Gastroenterology Lyssa Stout, ZAK [address] [facility] [address] [phone] 01/25/2021 Office Visit Pharmacy Shel[facility], [facility] [address] [place] [address] 03/03/2021 Nutrition Services Gastroenterology Melissa Omalley, RDN [address] [place] [address] [phone] 03/04/2021 Office Visit Family Medicine Alexandra Caceres, DO [address] [place] [address] 09/09/2021 Imaging Radiology Health Maintenance Due [...] of this encounter Implants Implanted Type Area In Flight Technician Device Identifier Shelf Expiration Date Model / Serial / Lot Microtech Sure Clip Implanted:Qty: 2 on 06/03/2020 by Janis Hatch DO at OR [facility] Clip N/A: Colon 04/21/2022 [facility]-F-26-2 35-C-R / / [id number] documented as of this encounter Advance Directives Documents on File Type Date Recorded 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
--- OUTSIDE RECORDS SUMMARY | 2023-05-10 21:23 | External Medical Summary | Summary of Care ---
Author Name Unknown Organization [facility] Address [place] [address] Care Team Providers Care Steel Buffer Name Role Phone Nicki Alexandra Daisha MORENO Primary Care Provider Reason for Visit * Reason Comments IV Therapy Venofer #02/14 Encounter Details Date Type Department Care Team Description 12/18/2020 Hem/Onc Treatment Hematology/Oncology Treatment, [place] [address] [place] [address] Maryellen Chair 7 Hem Onc [place] [address] [place] [address] [phone] Iron deficiency anemia due to chronic blood loss* Allergies Active Allergy Reactions Severity Noted Date Comments Adhesive Tape Itching 04/29/2020 Penicillins Rash 02/12/2008 Perflutren Protein A Microsph 2019 Definity-lower back pain documented as of this encounter (statuses as of 12/18/2020) Medications Medication Sig Dispensed Refills Start Date End Date Status CENTRUM SILVER PO TABS Take 1 Tab by mouth daily. 1 Tab 0 05/25/2012 Active vitamin c (ASCORBIC ACID) 500 MG Tablet Take 500 mg by mouth daily. 0 Active fluticasone (FLONASE) 50 MCG/ACT nasal sprayIndications:Sin us congestion INSTILL 2 SPRAYS INTO EACH NOSTRIL DAILY DIRECTED 16 g 5 08/01/2019 Active albuterol sulfate (PROVENTIL) (2.5 MG/3ML) 0.083% nebulizer solutionIndications: Pulmonary vascular congestion Inhale 1 Vial via nebulizer every 6 hours as needed for Wheezing. 120 Vial 11 10/02/2019 Active nystatin (NYSTOP) 599630 UNIT/GM powder Apply topically to affected area [...] 30 mL 3 08/31/2020 Active Dexcom G6 Fuel Verification Technician Device Use as directed. To test [...] Strip 3 10/29/2020 Active OneTouch Delica Plus [id number] TESTING once daily 100 Each 3 10/29/2020 [...] daily; E11.42 400 Each 3 12/05/2020 Active Ketoconazole 2 % External CreamIndications:Bryon orrheic dermatitis Apply topically to affected area 2 times a day for 14 days. Apply to scalp line and behind ear 30 g 1 12/07/2020 12/21/2020 Active Insulin Aspart 100 UNIT/ML Subcutaneous Solution (NovoLOG) Inject 28 units under the skin before breakfast, 32 units before lunch, and 32 units before supper 105 mL 3 12/14/2020 Active documented as of this encounter (statuses as of 12/18/2020) Active Problems Problem Noted Date Uncontrolled type [...] as of this encounter (statuses as of 12/18/2020) Resolved Problems Problem Noted Date Resolved Date [...] pain 01/24/2012 01/17/2017 Genetic Sleep Disorder Research Other*[id number] 05/13/2011 04/07/2016 Obstructive sleep apnea 01/18/2011 12/27/19 [...] as of this encounter (statuses as of 12/18/2020) Immunizations Name Administration Dates Next Due COVID-19 [...] Sign Reading Time Taken Comments Blood Pressure 138/81 12/18/2020 1:58 PM EDT Pulse 66 12/18/2020 1:58 PM EDT Temperature 36.6 C (97.9 F) 12/18/2020 1:58 PM ED T Respiratory Rate 18 12/18/2020 1:58 PM EDT Oxygen Saturation - - Inhaled [...] or bathing? 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-child care giver helps 07/15/2020 Because of a physical, menta [...] Nursing Notes * Francine Okeefe RN - 12/18/2020 4:08 PM EDT Goals: Patient will remain free from injury. Possible barriers to meeting goals: possible reaction to treatment Stability of the patient: Moderately unstable - medium risk of patient condition declining or worsening Summary regarding today's goals: Met: pt tolerated treatment well and remained free from injury. Pt discharged in stable condition in personal motorized scooter. Coverage by Cathy Patton RN * Dulce Montes De Oca RN - 12/18/2020 2:45 PM EDT Chair 3 Pt presentes for #6 Venofer. She is in her motorized wheelchair. She denies any complaints related to today's visit. Safety and Risk for Injury Patient will remain free from injury. Ensure appropriate safety devices are available. Provide and maintain safe environment. VAD accessed without difficulty and fluids infusing. documented in this encounter Plan of Treatment Upcoming Encounters Date Type Specialty Care Team Description 12/22/2020 Office Visit Family Medicine Vanita Dunn MD [address] [place] [address] 01/01/2021 Office Visit Hematology Oncology Tono Sanchez MD 200 [facility] [place] [address] [phone] 01/15/2021 Immunization/Injection Hematology Oncolog y Maryellen, Chair [address] [facility] 200 [place] [address] [phone] 01/21/2021 Office Visit Gastroenterology Lyssa Stout CRNP [address] [facility] [place] [address] [phone] 01/25/2021 Office Visit Pharmacy [facility] [address] [place] [address] 03/03/2021 Nutrition Services Gastroenterology Melissa Omalely, RDN [address] [facility] [place] [id number] 03/04/2021 Office Visit Family Medicine Alexandra Caceres DO [address] [place] [address] 09/09/2021 Imaging Radiology Health Maintenance [...] of this encounter Implants Implanted Type Area Recycling Sorter Device Identifier Shelf Expiration Date Model / Serial / Lot Microtech Sure Clip Implanted:Qty: 2 on 06/03/2020 by Janis Hatch DO at OR [facility] Clip N/A: Colon 04/21/2022 [facility]-F-26-2 35-C-R / / [id number] documented as of this encounter Visit Diagnoses [...] Push, ONCE PRN Other, Hypersensitivity Reaction, Starting 12/18/20 at 1432, Until 12/19/20 at 1431, For 24 hours EPINEPHrine 1 MG/ML inj 0.3 mg 0.3 mg, Intramuscular, ONCE PRN Other, Hypersensitivity Reaction or Anaphylaxis, Starting 12/18/20 at 1432, Until 12/19/20 at 1431, For 24 hours hEParin 100 UNIT/ML Lock Flush inj 500 Units 500 Units (5 mL), IV Lock, PRN Other, IV Flush, Starting 12/18/20 at 1432, Until 12/19/20 at 1431, For 24 hours, Do not flush if lock, PICC, or central line not in place; IV infusing or unable to flush., Given 12/18/2020 4:08 PM EDT 500 Units Hydrocortisone Na Succinate PF (Solu-Cortef) inj 100 mg 100 mg, IV Push, ONCE PRN Other, Hypersensitivity Reaction, Starting Mon12/18/20 at 1432, Until 12/19/20 at 1431, For 24 hours NSS infusion 500 mL, Intravenous, at 50 mL/hr, CONTINUOUS, Starting Mon12/18/20 at 1545, Until 12/19/20 at 0144 Start Infusion 12/18/2020 2:25 PM EDT 500 mL 50 mL/hr sodium chloride 0.9% flush/inj 10 mL 10 mL, IV Push, PRN Other, IV Flush, Starting Mon12/18/20 at 1432, Until 12/19/20 at 1431, For 24 hours, Do not flush if lock, PICC, or central line not in place; IV infusing or unable to flush., Given 12/18/2020 4:08 PM EDT 10 mL Inactive Administered Medications - up to 3 most recent administrations Medication Order MAR Action Action Date Dose Rate Site Iron Sucrose (Venofer) 300 mg in NSS 250 mL ivpb 300 mg, IV Piggyback, ONCE, 1 dose, Mon12/18/20 at 1615, Administer over 90 Minutes Start Infusion 12/18/2020 2:32 PM EDT 300 mg 166.67 mL/hr documented in this encounter Advance Directives Documents on File Type Date Recorded Patient Radio Mechanic Helper Expl anation Advanced Directive service a [...]
--- OUTSIDE RECORDS SUMMARY | 2023-05-10 21:23 | External Medical Summary | Summary of Care ---
Author Name Unknown Organization [facility] Address [place] [address] Care Team Providers Care Poultry Process Worker Name Role Phone Alexandra Caceres Primary Care Provider [phone] Reason for Visit * Reason Comments Dosage Adjustment In Person (Anticoag Cl inic) Diabetes Follow-Up Encounter Details Date Type Department Care Team Description 12/14/2020 Office Visit Pharmacy, [place] [address] [place] [address] [place] [facility] [address] [place] [address] [phone] Type 2 diabetes mellitus with hemoglobin A1c goal of less than 7.0% ([facility])* Allergies Active Allergy Reactions Severity Noted Date Comments Adhesive Tape Itching 04/29/2020 Penicillins Rash 02/12/2008 Perflutren Protein A Microsph 2019 Definity-lower back pain documented as of this encounter (statuses as of 12/14/2020) Medications Medication Sig Dispensed Refills Start Date End Date Status CENTRUM SILVER PO TABS Take 1 Tab by mouth daily. 1 Tab 0 05/25/2012 Active vitamin c (ASCORBIC ACID) 500 MG Tablet Take 500 mg by mouth daily. 0 Active fluticasone (FLONASE) 50 MCG/ACT nasal sprayIndications:S inus congestion INSTILL 2 SPRAYS INTO EACH NOSTRIL DAILY DIRECTED 16 g 5 08/01/2019 Active albuterol sulfate (PROVENTIL) (2.5 MG/3ML) 0.083% nebulizer solutionIndication s:Pulmonary vascular congestion Inhale 1 Vial via nebulizer every 6 hours as needed for Wheezing. 120 Vial 11 10/02/2019 Active nystatin (NYSTOP) 272233 UNIT/GM powder Apply topically to affected area [...] 0 11/19/2019 Active escitalopram (LEXAPRO) 20 MG TabletIndications: Recurrent major depressive disorder, in partial remission (HCC) TAKE 1 TABLET BY MOUTH ONCE DAILY 90 Tab 1 05/21/2020 Active potassium chloride ER 10 MEQ TBCRIndications:Hy [...] 07/07/2020 Active Furosemide 20 MG Oral Tablet (LASIX)Indications [...] 30 mL 3 08/31/2020 Active Dexcom G6 Regional Engineer Device Use as directed. To test [...] Strip 3 10/29/2020 Active OneTouch Delica Plus [id number] TESTING once daily 100 Each 3 10/29/2020 [...] 3 12/05/2020 Active Ketoconazole 2 % External CreamIndications:S eborrheic dermatitis Apply topically to affected area 2 times a day for 14 days. Apply to scalp line and behind ear 30 g 1 12/07/2020 1 Active Insulin Aspart 100 UNIT/ML Subcutaneous Solution (NovoLOG) Inject 28 units under the skin before breakfast, 32 units before lunch, and 32 units before supper 105 mL 3 12/14/2020 Active Insulin Aspart 100 UNIT/ML Subcutaneous Solution (NovoLOG) Inject 28 units under the skin before breakfast, 28 units before lunch, and 32 units before supper 90 mL 3 11/02/2020 1 Discontinued documented as of this encounter (statuses as of 12/14/2020) Active Problems Problem Noted Date Uncontrolled type [...] as of this encounter (statuses as of 12/14/2020) Resolved Problems Problem Noted Date Resolved Date [...] pain 01/24/2012 01/17/2017 Genetic Sleep Disorder Research Other*[id number] 05/13/2011 04/07/2016 Obstructive sleep apnea 01/18/2011 12/27/19 [...] as of this encounter (statuses as of 12/14/2020) Immunizations Name Administration Dates Next Due COVID-19 [...] or bathing? 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-adult live in caregiver helps 07/15/2020 Because of a physical, [...] Progress Notes * Indira Hudson, [facility] - 12/14/2020 2:38 PM EDT Medication Therapy Disease Management [facility] - Diabetes Management Progress Note Shaina Bustos, identified by name and date of , is a 65 year old female being seen for diabetesmanagement/education. Patient presents for return diabetic visit. DIABETES: Current diabetic medications: INCREASE: Novolog, Inject 28 units before breakfast, 28 units before lunch, and 32 units before supper Lantus pen, 25 units daily Metformin 1000mg, 1 tablet twice a day INCREASE: Trulicity 3mg SQ weekly GFR >60 as of 09/24/20 Lifestyle: Diet: unchanged Glucose Review/SMBG: DexCall Loop Clarity- uploaded data Hypoglycemia: Does your blood sugar go below [...] LAB 0.91 07/11/2018 HYPERTENSION: Patient on ACEi/ARB: no BP Readings from Last 3 Encounters: 12/04/20 144/87 12/03/20 128/80 12/01/20 126/80 HYPERLIPIDEMIA: Patient is taking moderate or high intensity statin: yes HEALTH MAINTENANCE REVIEW: Health Maintenance Due Topic Date Due DIABETES-EYE EXAM 06/12/2019 DIABETES-URINE MICROALBUMIN EVERY 12 MONTHS 01/12/2020 Dexa Scan Never done Pneumococcal Vaccine: 65+ Years (2 of 2 - PPSV23) 2020 Zoster Vaccines (3 of 3) 06/23/2020 DIABETES-FOOT EXAM 11/06/2020 ASSESSMENT & PLAN: ICD-10-CM 1. Type 2 diabetes mellitus with hemoglobin A1c goal of less than 7.0% (HCC) E11.9 BG Readings Reviewed Dexcom download. Blood sugars uncontrolled. A1C seems to have improved to goal. Per chart review, hemoglobin on 11/19/20 was 7.6. Patient is following with provider regarding this (sees heme/onc on 01/01). Might be reason for lower A1C as A1C and BG do not seem to correlate. Patient's sister helped her placed Dexcom. Doing well with it. Reviewed basic concepts of CGM. Medications Reviewed current regimen, patient is adherent to regimen. Tolerating. Doing well onhigher dose of Trulicity. Diet, Exercise, Lifestyle No significant lifestyle changes since last visit. Patient not covering lunch so will increase Novolog at lunch. No other changes at this time. Patient to contact clinic with any issues. Patient is agreeable to SMBG 4 time(s) daily. Patient aware to contact clinic if any hypoglycemia before next visit. MEDICATION CHANGES: Yes see below Diabetic Medications: INCREASE: Novolog, Inject 28 units before breakfast, 32 units before lunch, and 32 units before supper Lantus pen, 25 units daily Metformin 1000mg, 1 tablet twice a day Trulicity 3mg SQ weekly GFR >60 as of 09/24/20 HEALTH MAINTENANCE INTERVENTIONS: Due for eye and foot exam- unable to address due to time constraints of visit Due for urine microalbumin- will get with next set of labs FOLLOW UP: Return to clinic in 6 weeks Next Office Visit: 01/25/2021 Scheduled Provider(s): [facility] Indira Hudson [facility] Clinical Pharmacist - Bull Gang Supervisor Medication Therapy Management Clinic 12/14/2020, 2:39 PM documented in this encounter Plan of Treatment Upcoming Encounters Date Type Specialty Care Team Description 12/18/2020 Hem/Onc Treatment Hematology Oncology [place], Chair 7 Hem Onc [facility] [address] [place] [address] [phone] 01/01/2021 Office Visit Hematology Oncology Tono Sanchez MD [address] [place] [address] [phone] 01/21/2021 Office Visit Gastroenterology Lyssa Stout CRNP 132 [facility] [place] [address] [phone] 01/25/2021 Office Visit Pharmacy [address] [place] [address] 03/03/2021 Nutrition Services Gastroenterology Melissa Omalley RDN [address] [place] [address] [phone] 03/04/2021 Office Visit Family Medicine Alexandra Caceres DO [address] [place] [address] [phone] 09/09/2021 Imaging Radiology Health Maintenance Due Date Last Done Comments DIABETES-EYE EXAM 06/12/2019 06/12/2018, , 06/12/2018, Additional history exists DIABETES-URINE MICROALBUMIN EVERY 12 MONTHS 01/12/2020 01/11/2019, 08/24/2018, 07/19/2018, Additional history exists Dexa Scan 2020 Pneumococcal [...] 09/08/2021 09/08/2020, 09/02/2019, 04/04/2018, Additional history exists COLONOSCOPY-EVERY 5 YRS AGES 18-100 06/03/2025 06/03/2020, 06/03/2020, 03/17/2020, Additional history exists DTaP,Tdap,and Td Vaccines (3 - Td) 05/01/2027 05/01/2017, 05/26/2008 Influenza Vaccine (FLU shot) Completed , 06/05/2019, 05/16/2018, Additional history exists MENINGOCOCCAL (MENACTRA/MENVEO) Aged Out No longer eligible based on patient's age to complete this topic documented as of this encounter Implants Implanted Type Area Veneer Glue Spreader Device Identifier Shelf Expiration Date Model / Serial / Lot Microtech Sure Clip Implanted:Qty: 2 on 06/03/2020 by Janis Hatch DO at OR [facility] Clip N/A: Colon 04/21/2022 [facility]-F-26-2 35-C-R / / [id number] documented as of this encounter Visit Diagnoses Diagnosis Type 2 diabetes mellitus with hemoglobin A1c goal of less than 7.0% (HCC)- Primary documented in this encounter Advance Directives Documents on File Type Date Recorded Patient Head Sulfide Operator Expl anation Advanced Directive service a [...] Name Relationship Healthcare Agent [facility] Communication Syed Bustos Spouse Emergency Contact
--- OUTSIDE RECORDS SUMMARY | 2023-05-10 21:23 | External Medical Summary | Summary of Care ---
Author Name Unknown Organization [place] [address] Care Team Providers Care Tip Fixer Name Role Phone Alexandra Caceres Primary Care Provider [phone] Reason for Visit * Reason Onset Date Comments Pre Cert/Prior Auth 12/02/2020 Encounter Details Date Type Department Care Team Description 12/02/2020 Telephone Hematology/Oncology [facility] [address] [place] [address] Tono Sanchez MD [address] [place] [address] [phone] Pre Cert/Prior Auth Allergies Active Allergy Reactions Severity Noted Date Comments Adhesive Tape Itching 04/29/2020 Penicillins Rash 02/12/2008 Perflutren Protein A Microsph 2019 Definity-lower back pain documented as of this encounter (statuses as of 12/16/2020) Medications Medication Sig Dispensed Refills Start Date End Date Status CENTRUM SILVER PO TABS Take 1 Tab by mouth daily. 1 Tab 0 05/25/2012 Active vitamin c (ASCORBIC ACID) 500 MG Tablet Take 500 mg by mouth daily. 0 Active fluticasone (FLONASE) 50 MCG/ACT nasal sprayIndications:Sinu s congestion INSTILL 2 SPRAYS INTO EACH NOSTRIL DAILY DIRECTED 16 g 5 08/01/2019 Active albuterol sulfate (PROVENTIL) (2.5 MG/3ML) 0.083% nebulizer solutionIndications:P ulmonary vascular congestion Inhale 1 Vial via nebulizer every 6 hours as needed for Wheezing. 120 Vial 11 10/02/2019 Active nystatin (NYSTOP) 916579 UNIT/GM powder Apply topically to affected area [...] 0 11/19/2019 Active escitalopram (LEXAPRO) 20 MG TabletIndications:Rec urrent major depressive disorder, in partial remission (HCC) TAKE 1 TABLET BY MOUTH ONCE DAILY 90 Tab 1 05/21/2020 Active potassium chloride ER 10 MEQ TBCRIndications:Hypok [...] Sodium 20 MG Oral Tablet Delayed Release (PROTONIX)Indications :NAFLD (nonalcoholic fatty liver disease),Other cirrhosis of liver (HCC) Take 2 Tabs by mouth 2 times a day. 180 Tab 1 07/07/2020 Active Furosemide 20 MG Oral Tablet (LASIX)Indications:Lo calized edema,Venous stasis dermatitis of both lower [...] 30 mL 3 08/31/2020 Active Dexcom G6 Extra Gang Supervisor Device Use as directed. To test [...] Strip 3 10/29/2020 Active OneTouch Delica Plus [id number] TESTING once daily 100 Each 3 10/29/2020 [...] AT BEDTIME 90 Tab 2 11/30/2020 Active documented as of this encounter (statuses as of 12/16/2020) Active Problems Problem Noted Date Uncontrolled type [...] as of this encounter (statuses as of 12/16/2020) Resolved Problems Problem Noted Date Resolved Date [...] pain 01/24/2012 01/17/2017 Genetic Sleep Disorder Research Other*[id number] 05/13/2011 04/07/2016 Obstructive sleep apnea 01/18/2011 12/27/19 [...] as of this encounter (statuses as of 12/16/2020) Immunizations Name Administration Dates Next Due COVID-19 [...] or bathing? 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-snake charmer helps 07/15/2020 Because of a physical, menta [...] Telephone Encounter - Cassie Barboza RN - 12/03/2020 8:40 AM EDT Referral entered. * Telephone Encounter - Bella Ramires LPN - 12/02/2020 2:08 PM EDT Pt's auth for salomón expires on 12/03/20. She has appt for infusion on 12/04/20. Please renew. documented in this encounter Plan of Treatment Upcoming Encounters Date Type Specialty Care Team Description 12/18/2020 Hem/Onc Treatment Hematology Oncology [place], Chair [address] [address] [phone] 12/22/2020 Office Visit Family Medicine Vanita Dunn MD [address] [place] [address] 01/01/2021 Office Visit Hematology Oncology Tono Sanchez MD 200 [place] [address] [phone] 01/21/2021 Office Visit Gastroenterology Lyssa Stout CRNP [address] [place] [address] [phone] 01/25/2021 [facility] [address] [place] [address] 03/03/2021 Nutrition Services Gastroenterology Melissa Omalley, RDN [address] [place] [address] [phone] 03/04/2021 Office Visit Family Medicine Alexandra Caceres, DO [address] [facility] [id number] 09/09/2021 Imaging Radiology Health Maintenance Due Date [...] of this encounter Implants Implanted Type Area Broke Beater Device Identifier Shelf Expiration Date Model / Serial / Lot Microtech Sure Clip Implanted:Qty: 2 on 06/03/2020 by Janis Hatch DO at OR [facility] Clip N/A: Colon 04/21/2022 [facility]-F-26-2 35-C-R / / [id number] documented as of this encounter Advance Directives Documents on File Type Date Recorded Patient School Psychometrist Expl anation Advanced Directive service a kerri [...]
--- OUTSIDE RECORDS SUMMARY | 2023-05-10 21:23 | External Medical Summary | Summary of Care ---
Author Name Unknown Organization [place] [address] Care Team Providers Care Wastewater Analyst Name Role Phone NikAlexandra fernandez Primary Care Provider [phone] Reason for Visit * Reason Comments eRx-Medication Refill Encounter Details Date Type Department Care Team Description 12/21/2020 Refill [place] [address], [place] [id number] Rajwinder Lara DO [address] [place] [address] [phone] Sinus congestion Allergies Active Allergy Reactions Severity Noted Date Comments Adhesive Tape Itching 04/29/2020 Penicillins Rash 02/12/2008 Perflutren Protein A Microsph 2019 Definity-lower back pain documented as of this encounter (statuses as of 12/23/2020) Medications Medication Sig Dispensed Refills Start Date [...] 120 Vial 11 10/02/2019 Active nystatin (NYSTOP) 235288 UNIT/GM powder Apply topically to affected area [...] 30 mL 3 08/31/2020 Active Dexcom G6 Raisin Washer Device Use as directed. To test [...] Strip 3 10/29/2020 Active OneTouch Delica Plus [id number] TESTING once daily 100 Each 3 10/29/2020 [...] of less than 7.0% ([facility]) Use to inject insulin four [...] as directed 16 g 5 12/23/2020 Active fluticasone (FLONASE) 50 MCG/ACT nasal sprayIndications:S inus congestion INSTILL 2 SPRAYS INTO EACH NOSTRIL DAILY DIRECTED 16 g 5 08/01/2019 1 Discontinued documented as of this encounter (statuses as of 12/23/2020) Active Problems Problem Noted Date Uncontrolled type [...] as of this encounter (statuses as of 12/23/2020) Resolved Problems Problem Noted Date Resolved Date [...] pain 01/24/2012 01/17/2017 Genetic Sleep Disorder Research Other*[id number] 05/13/2011 04/07/2016 Obstructive sleep apnea 01/18/2011 12/27/19 [...] as of this encounter (statuses as of 12/23/2020) Immunizations Name Administration Dates Next Due COVID-19 [...] or bathing? 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-dock clerk helps 07/15/2020 Because of a physical, menta [...] encounter Miscellaneous Notes * Telephone Encounter - Antoni Hall RPh - 12/23/2020 10:34 AM EDT Signed Prescriptions: Disp Refills Fluticasone Propionate 50 MCG/ACT Nasal Collins*16 g 5 Sig: USE 2 SPRAYS IN EACH NOSTRIL ONCE DAILY as directed Authorizing Provider: RAJWINDER LARA User: ANTONI HALL documented in this encounter Plan of Treatment Upcoming Encounters Date Type Specialty Care Team Description 12/23/2020 Office Visit Family Medicine Rajwinder Lara DO [address] [place], [place] [id number] 01/01/2021 Office Visit Hematology Oncology Tono Sanchez MD [address] [place] [address] [phone] 01/15/2021 Immunization/Injection Hematology Oncolog y [place], Chair 3 Hem Onc [address] [place] [address] [phone] 01/21/2021 Office Visit Gastroenterology Lyssa Stout CRNP [address] [facility] [place] [address] [phone] 01/25/2021 Office Visit [facility] [address] [facility] [address] [phone] 03/03/2021 Nutrition Services Gastroenterology Melissa Omalley, RDN [address] [place] [address] [phone] 03/04/2021 Office Visit Family Medicine Alexandra Caceres DO [address] [facility] [place] [address] [phone] 09/09/2021 Imaging Radiology Health Maintenance Due Date [...] of this encounter Implants Implanted Type Area Medication Care Manager Device Identifier Shelf Expiration Date Model / Serial / Lot Microtech Sure Clip Implanted:Qty: 2 on 06/03/2020 by Janis Hatch DO at OR [facility] Clip N/A: Colon 04/21/2022 [facility]-F-26-2 35-C-R / / [id number] documented as of this encounter Visit Diagnoses Diagnosis Sinus congestion Other diseases of nasal cavity and sinuses documented in this encounter Advance Directives Documents on File Type Date Recorded Patient Facilities Engineering Manager Expl 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 Agents on File Name Relationship Healthcare Agent [employer] Communication Syed Bustos Spouse Emergency Contact
--- OUTSIDE RECORDS SUMMARY | 2023-05-10 21:24 | External Medical Summary | Summary of Care ---
Author Name Unknown Organization [place] [address] Care Team Providers Care Horticultural Specialty Grower Field Name Role Phone Maikel Caceres Primary Care Provider [phone] Reason for Visit * Reason Onset Date Comments Medication Refill 12/05/2020 Encounter Details Date Type Department Care Team Description 12/05/2020 Refill Pharmacy, [place] [address] [place] [address] [facility] [address] [place] [address] [phone] Type 2 diabetes mellitus with hemoglobin A1c goal of less than 7.0% ([facility]) Allergies Active Allergy Reactions Severity Noted Date Comments Adhesive Tape Itching 04/29/2020 Penicillins Rash 02/12/2008 Perflutren Protein A Microsph 2019 Definity-lower back pain documented as of this encounter (statuses as of 12/05/2020) Medications Medication Sig Dispensed Refills Start Date [...] 120 Vial 11 10/02/2019 Active nystatin (NYSTOP) 744729 UNIT/GM powder Apply topically to affected area [...] 30 mL 3 08/31/2020 Active Dexcom G6 Contact Lens Assistant Device Use as directed. To test [...] Strip 3 10/29/2020 Active OneTouch Delica Plus [id number] TESTING once daily 100 Each 3 10/29/2020 [...] a week 6 mL 3 11/02/2020 Active Insulin Aspart 100 UNIT/ML Subcutaneous Solution (NovoLOG) Inject 28 units under the skin before breakfast, 28 units before lunch, and 32 units before supper 90 mL 3 11/02/2020 Active Linzess 290 MCG [...] daily; E11.42 400 Each 3 12/05/2020 Active BD Pen Needle Mini U/F 31G X 5 MM (Insulin Pen Needle)Indications :Type 2 diabetes mellitus with hemoglobin A1c goal of less than 7.0% (HCC) Use to inject insulin four times daily; E11.42 400 Each 3 06/23/2020 12/05/2020 Discontinue d(Refill) documented as of this encounter (statuses as of 12/05/2020) Active Problems Problem Noted Date Uncontrolled type [...] as of this encounter (statuses as of 12/05/2020) Resolved Problems Problem Noted Date Resolved Date [...] pain 01/24/2012 01/17/2017 Genetic Sleep Disorder Research Other*[id number] 05/13/2011 04/07/2016 Obstructive sleep apnea 01/18/2011 12/27/19 [...] as of this encounter (statuses as of 12/05/2020) Immunizations Name Administration Dates Next Due COVID-19 [...] or bathing? 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/15/2020 Because of a physical, menta [...] Notes * Telephone Encounter - Jean Marie Rivas, [facility] - 12/05/2020 9:16 AM EDT Signed Prescriptions: Disp Refills BD Pen Needle Mini U/F 31G X 5 MM (Insulin*400 Ea*3 Sig: Use to inject insulin four times daily; E11.42 Authorizing Provider: MAIKEL CACERES User: JEAN MARIE RIVAS Electronically signed by Jean Marie Rivas [facility] at 12/05/2020 9:16 AM EDT * Telephone Encounter - Devorah Duque PHARM Tech - 12/05/2020 8:34 AM EDT Pending Prescriptions: Disp Refills BD Pen Needle Mini U/F 31G X 5 MM (Insuli*400 Ea*3 Sig: Use to inject insulin four times daily; E11.42 Last Office/Telemedicine Visit: 11/02/2020 Next Office Visit: 12/14/2020 Scheduled Provider(s): [facility] If no future appointments scheduled, and last appointment is greater than a year ago, please schedule patient for a follow-up appointment Last date the medication was ordered: Pharmacy: [facility] [id number] Is this request for a controlled [...] Encounters Date Type Specialty Care Team Description 12/14/2020 Office Visit [facility]acy [facility] [address] [facility] [place] [address] [phone] 12/18/2020 Hem/Onc Treatment Hematology Oncology [place], Chair 7 Hem Onc [facility] [address] [place] [address] [phone] 01/01/2021 Office Visit Hematology Oncology Tono Sanchez MD [address] [place] [address] [phone] 01/21/2021 Office Visit Gastroenterology [facility]sa Stout CRNP [address] [facility] [address] [phone] 03/03/2021 Nutrition Services Gastroenterology Melissa Omalley RDN [address] [facility] [place] [address] [phone] 03/04/2021 Office Visit Family Medicine Maikel Caceres, [address] [place] [facility] [place] [address] [phone] 09/09/2021 Imaging Radiology Health Maintenance Due Date [...] this encounter Implants Implanted Type Area Certified Emergency Vehicle Technician Device Identifier Shelf Expiration Date Model / Serial / Lot Microtech Sure Clip Implanted:Qty: 2 on 06/03/2020 by Janis Hatch DO at OR [facility] Clip N/A: Colon 04/21/2022 [facility]-F-26-2 35-C-R / / [id number] documented as of this encounter Visit Diagnoses Diagnosis Type 2 diabetes mellitus with hemoglobin A1c goal of less than 7.0% (HCC) documented in this encounter Advance Directives Documents on File Type Date Recorded Patient Puttier Expl anation Advanced Directive service a kerri [...] Agent [facility] p Communication Syed Juli Spouse Emergency Contact
--- OUTSIDE RECORDS SUMMARY | 2023-05-10 21:24 | External Medical Summary | Summary of Care ---
Author Name Unknown Organization [place] [address] Care Team Providers Care Clinical Assoc Name Role Phone Nicki Alexandra Daisha MORENO Primary Care Provider Reason for Visit * Reason Comments IV Therapy venofer * Precert (Within 10 days (routine)) Status Reason Specialty Diagnoses / Procedures Referred By Contact Referred To Contact Authorized Precert Hematology Oncology Diagnoses Iron deficiency anemia secondary to blood loss (chronic) Splenomegaly, not elsewhere classified Procedures [id number] - VENOFER Tono Sanchez MD [address] [place] [address] Encounter Details Date Type Department Care Team Description 12/04/2020 Hem/Onc Treatment Hematology/Oncology Treatment, [address] [address] Maryellen, Chair 8 Hem Onc [address] [address] [phone] Iron deficiency anemia due to chronic blood loss* Allergies Active Allergy Reactions Severity Noted Date Comments Adhesive Tape Itching 04/29/2020 Penicillins Rash 02/12/2008 Perflutren Protein A Microsph 2019 Definity-lower back pain documented as of this encounter (statuses as of 12/04/2020) Medications Medication Sig Dispensed Refills Start Date [...] 120 Vial 11 10/02/2019 Active nystatin (NYSTOP) 175460 UNIT/GM powder Apply topically to affected area [...] at bedtime. 34 Tab 0 05/29/2020 Active BD Pen Needle Mini U/F 31G X 5 MM (Insulin Pen Needle)Indications:Ty pe 2 diabetes mellitus with hemoglobin A1c goal of less than 7.0% (HCC) Use to inject insulin four times daily; E11.42 400 Each 3 06/23/2020 Active Pantoprazole Sodium 20 MG Oral Tablet [...] 30 mL 3 08/31/2020 Active Dexcom G6 Make Up Artist Device Use as directed. To test blood [...] TO ACCESSING. 30 g 3 10/09/2020 Active CardizeTouch Verio In Vitro Strip (Glucose Blood) TESTING once daily 100 Strip 3 10/29/2020 Active CardizeTouch Delica Plus Eltvso05U TESTING once daily 100 Each 3 10/29/2020 [...] as of this encounter (statuses as of 12/04/2020) Active Problems Problem Noted Date Uncontrolled type [...] as of this encounter (statuses as of 12/04/2020) Resolved Problems Problem Noted Date Resolved Date [...] pain 01/24/2012 01/17/2017 Genetic Sleep Disorder Research Other*[id number] 05/13/2011 04/07/2016 Obstructive sleep apnea 01/18/2011 12/27/19 [...] as of this encounter (statuses as of 12/04/2020) Immunizations Name Administration Dates Next Due COVID-19 [...] Sign Reading Time Taken Comments Blood Pressure 144/87 12/04/2020 2:00 PM EDT Pulse 76 12/04/2020 2:00 PM EDT Temperature 36.6 C (97.9 F) 12/04/2020 2:00 PM ED T Respiratory Rate 22 12/04/2020 2:00 PM EDT Oxygen Saturation - - Inhaled [...] or bathing? 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-manager outreach helps 07/15/2020 Because of a physical, menta [...] as of this encounter Nursing Notes * Jacob Harvey RN - 12/04/2020 4:08 PM EDT Stability of the patient: Moderately stable - low risk of patient condition declining or worsening Summary regarding today's goals: Met: venofer infused without incident. Pt discharged from this unit in her baseline condition. * Jacob Harvey RN - 12/04/2020 3:33 PM EDT Pt remained in her motorized wheelchair at station 3. Safety and Risk for Injury Patient will remain free from injury. Ensure appropriate safety devices are available. Provide and maintain safe environment. Goals: pt will receive venofer infusion without incident. Possible barriers to meeting goals: possible allergic reaction to venofer or other acute side effect Stability of the patient: Moderately unstable - medium risk of patient condition declining or worsening. Pt is wheelchair bound with multiple health issues including obesity and baseline shortness ofbreath, diabetes. Higher risk of complications due to co-morbidities. Summary regarding today's goals: Not Met: will assess during infusion documented in this encounter Plan of Treatment Upcoming Encounters Date Type Specialty Care Team Description 12/14/2020 Office Visit Pharmacy [place] [address] [place] [address] [phone] 12/18/2020 Hem/Onc Treatment Hematology Oncology [place], Chair 7 Hem Onc [facility] [address] [facility] [address] [phone] 01/01/2021 Office Visit Hematology Oncology Tono Sanchez MD [address] [facility] [address] [phone] 01/21/2021 Office Visit [facility]astroenterology [facility]sa Stout CRNP [address] [facility] [address] [phone] 03/03/2021 Nutrition Services Gastroenterology Melissa Omalley RDN [address] [place] [address] [phone] 03/04/2021 Office Visit Family Medicine Alexandra Caceres, [address] [facility] [place] [address] [phone] 09/09/2021 Imaging Radiology Health Maintenance Due Date [...] of this encounter Implants Implanted Type Area Street Commissioner Device Identifier Shelf Expiration Date Model / Serial / Lot Microtech Sure Clip Implanted:Qty: 2 on 06/03/2020 by Janis Hatch DO at OR [facility] Clip N/A: Colon 04/21/2022 [facility]-F-26-2 35-C-R / / [id number] documented as of this encounter Visit Diagnoses [...] Push, ONCE PRN Other, Hypersensitivity Reaction, Starting Mon12/04/20 at 1402, Until 12/05/20 at 1401, For 24 hours EPINEPHrine 1 MG/ML inj 0.3 mg 0.3 mg, Intramuscular, ONCE PRN Other, Hypersensitivity Reaction or Anaphylaxis, Starting Mon12/04/20 at 1402, Until 12/05/20 at 1401, For 24 hours hEParin 100 UNIT/ML Lock Flush inj 500 Units 500 Units (5 mL), IV Lock, PRN Other, IV Flush, Starting Mon12/04/20 at 1402, Until 12/05/20 at 1401, For 24 hours, Do not flush if lock, PICC, or central line not in place; IV infusing or unable to flush., Given 12/04/2020 3:50 PM EDT 500 Units Hydrocortisone Na Succinate PF (Solu-Cortef) inj 100 mg 100 mg, IV Push, ONCE PRN Other, Hypersensitivity Reaction, Starting Mon12/04/20 at 1402, Until 12/05/20 at 1401, For 24 hours NSS infusion 500 mL, Intravenous, at 50 mL/hr, CONTINUOUS, Starting Mon12/04/20 at 1515, Until 12/05/20 at 0114 Start Infusion 12/04/2020 2:17 PM EDT 500 mL 50 mL/hr sodium chloride 0.9% flush/inj 10 mL 10 mL, IV Push, PRN Other, IV Flush, Starting Mon12/04/20 at 1402, Until 12/05/20 at 1401, For 24 hours, Do not flush if lock, PICC, or central line not in place; IV infusing or unable to flush., Given 12/04/2020 3:50 PM EDT 10 mL Inactive Administered Medications - up to 3 most recent administrations Medication Order MAR Action Action Date Dose Rate Site Iron Sucrose (Venofer) 300 mg in NSS 250 mL ivpb 300 mg, IV Piggyback, ONCE, 1 dose, 12/04/20 at 1545, Administer over 90 Minutes Start Infusion 12/04/2020 2:17 PM EDT 300 mg 166.67 mL/hr documented in this encounter Advance Directives Documents on File Type Date Recorded Patient Finance Analyst Expl anation Advanced Directive service a [...] Relationship Healthcare Agent [facility] Communication Syed Bustos Spouse Emergency Contact
--- OUTSIDE RECORDS SUMMARY | 2023-05-10 21:24 | External Medical Summary | Summary of Care ---
Author Name Unknown Organization [place] [address] Care Team Providers Care Labor Relations Consultant Name Role Phone Maikel Caceres DO Primary Care Provider Reason for Visit * Reason Onset Date Comments Test Results 12/04/2020 Encounter Details Date Type Department Care Team Description 12/04/2020 Telephone [facility] [address], [place] [id number] Maikel Caceres DO [address] [place] [address] [phone] Test Results Allergies Active Allergy Reactions Severity Noted Date Comments Adhesive Tape Itching 04/29/2020 Penicillins Rash 02/12/2008 Perflutren Protein A Microsph 2019 Definity-lower back pain documented as of this encounter (statuses as of 12/07/2020) Medications Medication Sig Dispensed Refills Start Date [...] 120 Vial 11 10/02/2019 Active nystatin (NYSTOP) 724347 UNIT/GM powder Apply topically to affected area [...] 30 mL 3 08/31/2020 Active Dexcom G6 Pharmaceutical Officer Device Use as directed. To test [...] Strip 3 10/29/2020 Active OneTouch Delica Plus [id number] TESTING once daily 100 Each 3 10/29/2020 [...] days. 90 Cap 0 12/03/2020 01/02/2021 Active Ketoconazole 2 % External CreamIndications:S eborrheic dermatitis Apply topically to affected area 2 times a day for 14 days. Apply to scalp line and behind ear 30 g 1 12/07/2020 12/21/2020 Active BD Pen Needle Mini U/F 31G X 5 MM (Insulin Pen Needle)Indications :Type 2 diabetes mellitus with hemoglobin A1c goal of less than 7.0% ([facility]) Use to inject insulin four times daily; E11.42 400 Each 3 06/23/2020 12/05/2020 Discontinue d(Refill) documented as of this encounter (statuses as of 12/07/2020) Active Problems Problem Noted Date Uncontrolled type [...] as of this encounter (statuses as of 12/07/2020) Resolved Problems Problem Noted Date Resolved Date [...] pain 01/24/2012 01/17/2017 Genetic Sleep Disorder Research Other*[id number] 05/13/2011 04/07/2016 Obstructive sleep apnea 01/18/2011 12/27/19 [...] as of this encounter (statuses as of 12/07/2020) Immunizations Name Administration Dates Next Due COVID-19 [...] or bathing? 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 She is seeing hematology and getting iron infusions as part of her treatment. * Telephone Encounter - Yanira Graves LPN - 12/04/2020 2:30 PM EDT Patient aware and verbalized understanding Pt wants to know what else can be done for her anemia She did tell me that she is getting iron infusions She also states that she has really dry flaky skin behind left ear, in her hairline and its itchy all the time Its all over the back of her ear too She was using a cream on it that the pharmacy recommended but it did not help She cant remember the name of the cream and she does not have any left Pharm selected. Please advise. * Telephone Encounter - Naga Rodrigues OSA - 12/04/2020 2:24 PM EDT Reason for patient's call: returning call, gave pt the message, she has additional questions Caller was transferred to Yanira at the nurse line. * Telephone Encounter - Yanira Graves LPN - 12/04/2020 1:54 PM EDT Left message with female that answered the phone to have pt call back when she is available * Telephone Encounter - Maikel Caceres DO - 12/04/2020 1:20 PM EDT Her diabetic number is better. But this could be because she is anemic. documented in this encounter Plan of Treatment Upcoming Encounters Date Type Specialty Care Team Description 12/14/2020 Office Visit Pharmacy [facility] [address] [place] [address] [phone] 12/18/2020 Hem/Onc Treatment Hematology Oncology [place], Chair 7 Hem Onc [facility] [address] [place] [address] [phone] 01/01/2021 Office Visit Hematology Oncology Tono Sanchez MD [address] [facility], [place] [address] [phone] 01/21/2021 Office Visit Gastroenterology Lyssa Stout, ZAK [address] [facility] [place] [address] [phone] 03/03/2021 Nutrition Services Gastroenterology Melissa Omalley, [place] [address] [place] [address] [facility] [place] [address] [phone] 03/04/2021 Office Visit Family Medicine Maikel Caceres, DO [address] [place] [address] [phone] 09/09/2021 Imaging Radiology Health Maintenance Due Date [...] of this encounter Implants Implanted Type Area Pelt Grader Device Identifier Shelf Expiration Date Model / Serial / Lot Microtech Sure Clip Implanted:Qty: 2 on 06/03/2020 by Janis Hatch DO at OR [facility] Clip N/A: Colon 04/21/2022 [facility]-F-26-2 35-C-R / / [id number] documented as of this encounter Visit Diagnoses Diagnosis Seborrheic dermatitis- Primary Seborrheic dermatitis, unspecified documented in this encounter Advance Directives Documents on File Type Date Recorded Patient Post Doc Fellowship Expl anation Advanced Directive service a kerri [...]
--- OUTSIDE RECORDS SUMMARY | 2023-05-10 21:24 | External Medical Summary | Summary of Care ---
Author Name Unknown Organization [place] [address] Care Team Providers Care Straightening Press Operator Helper Name Role Phone Maikel Caceres DO Primary Care Provider Reason for Visit * Reason Onset Date Comments Test Results 12/04/2020 Encounter Details Date Type Department Care Team Description 12/04/2020 Telephone [facility] [address], [place] [id number] Maikel Caceres DO [address] [place] [address] [phone] Test Results Allergies Active Allergy Reactions Severity [...] 120 Vial 11 10/02/2019 Active nystatin (NYSTOP) 349457 UNIT/GM powder Apply topically to affected area [...] 30 mL 3 08/31/2020 Active Dexcom G6 Retrofit Installer Device Use as directed. To test [...] Strip 3 10/29/2020 Active OneTouch Delica Plus [id number] TESTING once daily 100 Each 3 10/29/2020 [...] pain 01/24/2012 01/17/2017 Genetic Sleep Disorder Research Other*[id number] 05/13/2011 04/07/2016 Obstructive sleep apnea 01/18/2011 12/27/19 [...] or bathing? 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-drive shaft and steering post repairer helps 07/15/2020 Because of a physical, menta [...] Miscellaneous Notes * Telephone Encounter - Dinorah Lowry LPN - 12/07/2020 2:32 PM EDT Patient aware and verbalized understanding, will comply * Addendum Note - Maikel Caceres DO [...] Visit Pharmacy [facility] [address] [place] [address] [phone] 12/18/2020 Hem/Onc Treatment Hematology Oncology [place], Chair 7 Hem Onc [facility] [address] [place] [address] [phone] 01/01/2021 Office Visit Hematology Oncology Tono Sanchez MD [address] [place] [address] [phone] 01/21/2021 Office Visit [facility]astroenterology Lyssa Stout CRNP [address] [facility] [address] [phone] 03/03/2021 Nutrition Services Gastroenterology Melissa Omalley, RDN [address] [facility] [place] [address] [phone] 03/04/2021 Office Visit Family Medicine Maikel Caceres DO [address] [place] [address] [phone] 09/09/2021 Imaging Radiology Health Maintenance Due Date [...] of this encounter Implants Implanted Type Area Movie Star Device Identifier Shelf Expiration Date Model / Serial / Lot Microtech Sure Clip Implanted:Qty: 2 on 06/03/2020 by Janis Hatch DO at OR [facility] Clip N/A: Colon 04/21/20[facility] / / [id number] documented as of this encounter Visit Diagnoses Diagnosis Seborrheic dermatitis- Primary Seborrheic dermatitis, unspecified documented in this encounter Advance Directives Documents on File Type Date Recorded Patient Supervisor Receiving And Processing Expl anation Advanced Directive service a [...]
--- OUTSIDE RECORDS SUMMARY | 2023-05-10 21:25 | External Medical Summary | Summary of Care ---
Author Name Unknown Organization [place] [address] Care Team Providers Care Field Counsel Name Role Phone Alexandra Caceres DO Primary Care Provider Reason for Visit * Reason Onset Date Comments Test Results 12/04/2020 Encounter Details Date Type Department Care Team Description 12/04/2020 Telephone [place] [address], [place] [id number] Alexandra Caceres DO [address] [place] [address] [phone] Test Results Allergies Active Allergy Reactions Severity [...] 120 Vial 11 10/02/2019 Active nystatin (NYSTOP) 781145 UNIT/GM powder Apply topically to affected area [...] 30 mL 3 08/31/2020 Active Dexcom G6 Pesticide Control Inspector Device Use as directed. To test [...] Strip 3 10/29/2020 Active OneTouch Delica Plus Myjalf44C TESTING once daily 100 Each 3 10/29/2020 [...] days. 90 Cap 0 12/03/2020 01/02/2021 Active documented as of this encounter (statuses [...] pain 01/24/2012 01/17/2017 Genetic Sleep Disorder Research Other*[id number] 05/13/2011 04/07/2016 Obstructive sleep apnea 01/18/2011 12/27/19 [...] or bathing? 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-storage management architect helps 07/15/2020 Because of a physical, menta [...] she is available * Telephone Encounter - Alexandra Caceres DO - 12/04/2020 1:20 PM EDT Her diabetic number is better. But this could be because she is anemic. documented in this encounter Plan of Treatment Upcoming Encounters Date Type Specialty Care Team Description 12/14/2020 Office Visit Pharmacy [facility] [address] [facility] [place] [id number] 12/18/2020 Hem/Onc Treatment Hematology Oncology [place], Chair 7 Hem Onc [facility] [address] [facility] [place] [address] [phone] 01/01/2021 Office Visit Hematology Oncology Tono Sanchez MD [address] [place] [address] [phone] 01/21/2021 Office Visit [facility]astroenterology [facility]sa Stout CRNP [address] [facility] [address] [phone] 03/03/2021 Nutrition Services Gastroenterology Melissa Omalley RDN [address] [place] [address] [phone] 03/04/2021 Office Visit Family Medicine Alexandra Caceres, [address] [place] [address] [phone] 09/09/2021 Imaging Radiology Health Maintenance Due Date [...] of this encounter Implants Implanted Type Area Wood Bucker Device Identifier Shelf Expiration Date Model / Serial / Lot Microtech Sure Clip Implanted:Qty: 2 on 06/03/2020 by Janis Hatch DO at OR [facility] Clip N/A: Colon 04/21/2022 [facility]-F-26-2 35-C-R / / [id number] documented as of this encounter Advance Directives Documents on File Type Date Recorded Patient Ward Assistant Expl anation Advanced Directive service a [...]
--- OUTSIDE RECORDS SUMMARY | 2023-05-10 21:25 | External Medical Summary | Summary of Care ---
Author Name Unknown Organization [place] [address] Care Team Providers Care Tool Specialist Name Role Phone Alexandra Caceres DO Primary Care Provider [phone] Reason for Visit * Reason Onset Date Comments Test Results 12/04/2020 Encounter Details Date Type Department Care Team Description 12/04/2020 Telephone [place] [address], [place] [address] Alexandra Caceres DO [address] [place] [address] [phone] Test Results Allergies Active Allergy Reactions Severity [...] 120 Vial 11 10/02/2019 Active nystatin (NYSTOP) 664493 UNIT/GM powder Apply topically to affected area [...] of less than 7.0% ([facility]) Use to inject insulin four times daily; [...] 30 mL 3 08/31/2020 Active Dexcom G6 Tubing Oiler Device Use as directed. 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 * Telephone Encounter [...] Care Team Description 12/14/2020 Office Visit Pharmacy [address] [id number] 12/18/2020 Hem/Onc Treatment Hematology Oncology [place], Chair 7 Hem Onc [address] [address] [phone] 01/01/2021 Office Visit Hematology Oncology Tono Sanchez MD [address] [place] [address] [phone] 01/21/2021 Office Visit Gastroenterology Lyssa Stout CRNP [address] [facility] [place] [address] [phone] 03/03/2021 Nutrition Services Gastroenterology Melissa Omalley RDN [address] [place] [address] [phone] 03/04/2021 Office Visit Family Medicine Alexandra Caceres, DO [address] [place] [address] [phone] 09/09/2021 Imaging Radiology Health Maintenance Due Date [...] of this encounter Implants Implanted Type Area Police Liaison Officer Device Identifier Shelf Expiration Date Model / Serial / Lot Microtech Sure Clip Implanted:Qty: 2 on 06/03/2020 by Janis Hatch DO at OR [facility] Clip N/A: Colon 04/21/2022 [facility]-F-26-2 35-C-R / / [id number] documented as of this encounter Advance Directives Documents on File Type Date Recorded 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
--- OUTSIDE RECORDS SUMMARY | 2023-05-10 21:25 | External Medical Summary | Summary of Care ---
Author Name Unknown Organization [place] [address] Care Team Providers Care Investigative Reporter Name Role Phone Alexandra Caceres DO Primary Care Provider [phone] Reason for Visit * Reason Comments NEW PATIENT Asthma * Evaluate & Treat - Unlimited Visits (Within 10 days (routine)) Status Reason Specialty Diagnoses / Procedures Referred By Contact Referred To Contact Closed Specialty Services Required Pulmonary Diseases / Pulmonary Diagnoses Restrictive lung disease Alexandra Caceres DO [address] [place] [address] Encounter Details Date Type Department Care Team Description 12/03/2020 Office Visit Pulmonary Medicine, [facility] [address] [facility] [place] [address] Mabel Cifuentes MD [address] [facility] [place] [address] Suspected DVT (deep vein thrombosis)*; BESSIE on CPAP; Restrictive lung disease; Intermittent asthma with reliever use up to twice per week without complication; Gastroesophageal reflux disease, unspecified whether esophagitis present; Acquired hypothyroidism Allergies Active Allergy Reactions Severity Noted Date Comments Adhesive Tape Itching 04/29/2020 Penicillins Rash 02/12/2008 Perflutren Protein A Microsph 2019 Definity-lower back pain documented as of this encounter (statuses as of 12/03/2020) Medications Medication Sig Dispensed Refills Start Date [...] 120 Vial 11 10/02/2019 Active nystatin (NYSTOP) 379630 UNIT/GM powder Apply topically to affected area [...] 30 mL 3 08/31/2020 Active Dexcom G6 Senior Marketing Manager Device Use as directed. To test [...] TO ACCESSING. 30 g 3 10/09/2020 Active MyRefersio In Vitro Strip (Glucose Blood) TESTING once daily 100 Strip 3 10/29/2020 Active OneTouch Delica Plus [id number] TESTING once daily 100 Each 3 10/29/2020 [...] as of this encounter (statuses as of 12/03/2020) Active Problems Problem Noted Date Uncontrolled type [...] as of this encounter (statuses as of 12/03/2020) Resolved Problems Problem Noted Date Resolved Date [...] pain 01/24/2012 01/17/2017 Genetic Sleep Disorder Research Other*[id number] 05/13/2011 04/07/2016 Obstructive sleep apnea 01/18/2011 12/27/19 [...] as of this encounter (statuses as of 12/03/2020) Immunizations Name Administration Dates Next Due COVID-19 [...] Reading Time Taken Comments Blood Pressure 128/80 12/03/2020 2:24 PM EDT Pulse 67 12/03/2020 2:24 PM EDT Temperature 36.9 C (98.4 F) 12/03/2020 2:24 PM ED T Respiratory Rate 16 12/03/2020 2:24 PM EDT Oxygen Saturation 93% 12/03/2020 2:24 PM EDT Inhaled Oxygen Concentration - - Weight 117.9 kg (260 lb) 12/03/2020 2:24 PM EDT Height 149.9 cm (4' 11") 12/03/2020 2:24 PM EDT Body Mass Index 52.51 12/03/2020 2:24 PM EDT documented in this encounter Functional [...] or bathing? 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 07/15/2020 Because of a physical, menta [...] as of this encounter Progress Notes * Mabel Cifuentes MD - 12/03/2020 2:56 PM EDT PULMONARY CONSULT -Thoracic / Pulmonary Medicine [facility] SURGERY [address] [id number] Patient personally seen by: Mabel Cifuentes MD.,[facility] Pulmonary & Critical Care Medicine Name : Shaina Bustos Encounter: [id number] Date: 12/03/2020 Time: 3:53 PM Visit Type/Media : initial visit, in person, New Consult Visit reason : new patient referral Eval/Mgmt of : Patient comes in for Chronic Disease Management, Disease: Bessie Morbid Obesity RLD Wheelchair bound , chest pain Symptoms: cough, abnormal chest xray, abnormal chest CT, abnormal PFT's, RT lower 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 Shaina Bustos is a 65 year old female, Body mass index is 52.51 kg/m., Social History Tobacco Use Smoking Status Never Smoker Smokeless Tobacco Never Used , who presents to the Pulm Clinic for the evaluation and management of listed pulmonary problems inbackground of following past medical-surgical history: Patient Active Problem List Diagnosis Code Venous insufficiency I87.2 Spinal stenosis of lumbar region without neurogenic claudication M48.061 Cerebral palsy ([facility]) G80.9 HTN, goal below 140/90 I10 Chronic rhinitis J31.0 NG (nonalcoholic steatohepatitis) K75.81 Venous stasis dermatitis of both lower extremities I87.2 DDD (degenerative disc disease), lumbar M51.36 Intermittent asthma with reliever use up to twice per week J45.20 Primary osteoarthritis of right knee M17.11 Lymphedema I89.0 Type 2 diabetes mellitus with hemoglobin A1c goal of less than 7.0% ([facility]) E11.9 Vitamin D deficiency E55.9 Restrictive lung disease J98.4 Obesity, morbid (more than 100 lbs over ideal weight or BMI > 40) ([facility]) E66.01 Dyslipidemia, goal LDL below 70 E78.5 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 R39.81 Acquired hypothyroidism E03.9 Chronic pain syndrome G89.4 MEDICATION USE AGREEMENT [id number] Cirrhosis of liver ([facility]) K74.60 BESSIE on CPAP G47.33, Z99.89 Wheelchair dependent Z99.3 Pancytopenia ([facility]) D61.818 Ambulatory dysfunction R26.2 DM type 2 with diabetic peripheral neuropathy ([facility]) E11.42 Insomnia G47.00 Recurrent major depressive disorder, in partial remission ([facility]) F33.41 Impaired mobility and ADLs Z74.09, Z78.9 Generalized weakness R53.1 Gastroesophageal reflux disease K21.9 History of Achilles tendon repair Z98.890 Anemia D64.9 Fibromyalgia M79.7 Achilles tendinitis, right leg M76.61 DNR (do not resuscitate) Z66 Thrombocytopenia ([facility]) D69.6 Iron deficiency anemia due to chronic blood loss D50.0 Splenomegaly R16.1 Diabetic ulcer of right great toe (HCC) E11.621, L97.519 Esophagitis K20.90 Esophageal varices (HCC) I85.00 Uncontrolled type 2 diabetes mellitus with hyperglycemia (HCC) E11.65 PRESENTATION Chief Complaint Patient presents with NEW PATIENT Asthma Nursing Notes: Saloni Ariza LPN 12/03/20 1444 Signed Chief Complaint Patient presents with NEW PATIENT Asthma MMRC Dyspnea Scale = 0 (I only get breathless with strenuous exercise) Reason for visit : New Ashtma Concerns/Issues : Right sided pain with breathing Last Exacerbation : none recent Pulm related ER/HOSP : none recent Outside Testing : none recent Asthma Control Test Question 12/03/2020 2:29 PM EDT Please select the best response to the five questions below, by clicking the appropriate option button. In the past 4 weeks, how much of the time did your asthma keep you from getting as much done at work, school or at home? All of the time During the past 4 weeks, how often have you had shortness of breath? More than once a day During the past 4 weeks, how often did your asthma symptoms (wheezing, coughing, shortness of breath, chest tightness or pain) wake you up at night or earlier than usual in the morning? 4 or more nights a week During the past 4 weeks, how often have you used your rescue inhaler or nebulizer medication (such as albuterol)? 1 or 2 times per day How would you rate your asthma control during the past 4 weeks? Not controlled at all Total ACT Adult Score (range: 5 - 25) 6 (Poorly Controlled) Total ACT Child Score (range: 0 - 27) Incomplete Extremely obese, Wheelchair bound, leaning to RT side chair, Cough non productive, clear, 3+ edma ext No pain in legs but very swollen & no tenderness --> US Ordered due to imobility CTPE-ve recently though Lungs clear Few basal rhonchi Tenderness RT chest lower muscles BESSIE Hypoventilation syndrome on BiPAP + O2 and is compliant Cough -->Tessalon No fever White Sputum No Dyspnea Ae-COPD Events in last 12 months: none ER visits: 0, Hospitalization: 0, number of prednisone courses: {0, history of being intubated: 0, hopsitalized or in the ICU: 0 in last 12 months . REVIEW OF SLEEP DISORDERS : BESSIE on BiPAP Compliant H/O Sleep Test Done : positive [facility] REVIEW OF SYSTEMS CONST : no fevers, no chills, no weight loss, no fatigue EYES : no changes in vision ENT : no changes in hearing, no sinus problems, no sore throat, no hoarseness RESP : no cough, no SOB, no wheezing CV : no chest pain, no palpitations, no edema GI : no vomiting, no diarrhea, no constipation, no melena, no hematemesis : no dysuria, no frequency, no hematuria MSK : no joint pain, no weakness PSYCH : no anxiety, no depression HEME : no bleeding, no bruising NEURO : no significant headache, no seizures, no strokes SKIN : no new rashes, no itching Past Medical History: Diagnosis Date Cerebral palsy [...] less than 7.0% ([facility]) 09/26/2013 ICD-10 update of inactive term . Past Surgical History: Procedure Laterality Date BONE DEBRIDEMENT, FIRST 20 CM2 Right 04/16/2020 DEBRIDEMENT SKIN SUBCUTANEOUS TISSUE MUSCLE AND BONE performed by Josh Vazquez MD at [facility] DEL[facility]ERY 04/20/1982 COLONOSCOPY 04/21/2009 repeat in 10 years COLONOSCOPY, DIAGNOSTIC (RECTUM) 10/04/2016 normal bx, repeat 10 yrs/[facility] COLONOSCOPY, DIAGNOSTIC (RECTUM) N/A 06/03/2020 internal hemorrhoids/biopsies show adenomatous polyps/recall 5 years/COLONOSCOPY FLEXIBLE PROXIMAL DIAGNOSTIC performed by Janis Hatch DO at OR [facility] COLONOSCOPY, DIAGNOSTIC (RECTUM) 03/17/2020 poor prep / [facility] DENTAL SURGERY PROCEDURE NEC wisdom teeth x 4 DILATION AND CURETTAGE (D&C) EGD, FLEXIBLE, DIAGNOSTIC 10/04/2016 gastritis/[facility] EGD, FLEXIBLE, DIAGNOSTIC 01/11/2018 eso varices, retained food, repeat 1 yr/[facility] EGD, FLEXIBLE, DIAGNOSTIC N/A 06/03/2020 severe erosive esophagitis/non-bleeding grade II esophageal varices/gastritis/biopsies show inflammatory changes/repeat 3-4 months/ESOPHAGOGASTRODUODENOSCOPY (EGD), FLEXIBLE, TRANSORAL, DIAGNOSTIC per formed by Janis Hatch DO at OR [facility] EGD, FLEXIBLE, DIAGNOSTIC 11/27/2019 eso varices, portal hypertensive gastropathy, gastritis / [facility] EGD, FLEXIBLE, DIAGNOSTIC N/A 08/05/2020 large amount of food in stomach/repeat 1.5 years/ESOPHAGOGASTRODUODENOSCOPY (EGD), FLEXIBLE, TRANSORAL, DIAGNOSTIC performed by Janis Hatch DO at OR [facility] IR VENOUS ACCESS MEDIPORT 10/05/2020 PELVIS/HIP JOINT SURGERY NEC teenager aid in walking REPAIR/GRAFT ACHILLES TENDON age 40 aid in walking . Family History Problem Relation Age of Onset Heart Disorder Father of PA at age 61 Diabetes Father Heart Disorder Mother of PA age 72 Cancer None Arthritis None Stroke None Heart Disorder Sister Mi at age 46 Hypertension Sister Mental Disorder None Social History Tobacco Use Smoking status: Never Smoker Smokeless tobacco: Never Used Substance Use Topics Alcohol use: No Drug use: No Comment: too much soda Vaping/E-Cigarette Use Vaping/E-Cigarette Use Never User Vaping/E-Cigarette Substances Nicotine No Other No Flavoring No THC No Cannabidiol (CBD) No Vaping/E-Cigarette Devices Disposable No Pre-filled or Refillable Cartridge No Refillable Tank No Pre-filled Pod No . TRAVELS: non-contributory PETS : {none . CURRENT MEDICATIONS (before start of this encounter) Current Medications - Prior to This Encounter Medication Sig Last Dose Discont. Benzonatate 100 MG Oral Capsule (Tessalon Perlmelia) Take 2 Caps by mouth 3 times a day as needed for Cough for up to 30 days. Cyclobenzaprine HCl 10 MG Oral Tablet (Flexeril) TAKE 1 TABLET BY MOUTH AT BEDTIME traZODone HCl 50 MG Oral Tablet (Desyrel) TAKE 1 TABLET BY MOUTH AT BEDTIME Linzess 290 MCG Oral Capsule (linaCLOtide) TAKE 1 CAPSULE BY MOUTH ONCE DAILY BEFORE BREAKFAST Gabapentin 300 MG Oral Capsule (Neurontin) TAKE 1 CAPSULE BY MOUTH EVERY MORNING, 1 CAPSULE MIDDAY AND 2 CAPSULES IN THE EVENING Insulin Aspart 100 UNIT/ML Subcutaneous Solution (NovoLOG) Inject 28 units under the skin before breakfast, 28 units before lunch, and 32 units before supper Levothyroxine Sodium 200 MCG Oral Tablet (Levoxyl) TAKE 1 TABLET BY MOUTH ONCE DAILY Oxybutynin Chloride 5 MG Oral Tablet (Ditropan) TAKE 1 TABLET BY MOUTH TWICE DAILY Tamsulosin HCl 0.4 MG Oral Capsule (Flomax) TAKE 1 CAPSULE BY MOUTH ONCE DAILY Trulicity 3 MG/0.5ML Subcutaneous Solution Pen-injector (Dulaglutide) Inject one pen (3mg) under the skin once a week OneTouch Delica Plus [id number] TESTING once daily OneTouch Verio In Vitro Strip (Glucose Blood) TESTING once daily Lidocaine-Prilocaine 2.5-2.5 % External Cream (Emla) Apply topically to affected area as needed forOther (for port). APPLY TO SKIN OVER MEDIPORT & COVER 1HR PRIOR TO ACCESSING. Nadolol 20 MG Oral Tablet (CORGARD) One daily Dexcom G6 Senior Marketing Manager Device Use as directed. To test blood sugars 4 times a day Dx E11.9 Dexcom G6 Sensor Use as directed. To test blood sugars 4 times a day. Change sensor every 10 days. Dx E11.9 Please dispense 3 boxes for 90 day supply Dexcom G6 Transmitter Use as directed. To test blood sugars 4 times a day. Change every 90 days. DxE11.9 Lantus SoloStar 100 UNIT/ML Subcutaneous Solution Pen-injector (insulin glargine) Inject 25 units under the skin once a day Fluticasone-Salmeterol 250-50 MCG/DOSE Inhalation Aerosol Powder Breath Activated (Advair Diskus) Inhale 1 Puff by mouth 2 times a day. Ipratropium-Albuterol 0.5-2.5 (3) MG/3ML Inhalation Solution (DUONEB) Inhale 3 mL via nebulizer 4 times a day. Atorvastatin Calcium 40 MG Oral Tablet (LIPITOR) TAKE 1 TABLET BY MOUTH AT BEDTIME Furosemide 20 MG Oral Tablet (LASIX) TAKE 1 TABLET BY MOUTH once DAilY NEEDED for edema Pantoprazole Sodium 20 MG Oral Tablet Delayed Release (PROTONIX) Take 2 Tabs by mouth 2 times a day. BD Pen Needle Mini U/F 31G X 5 MM (Insulin Pen Needle) Use to inject insulin four times daily; E11.42 famotidine (PEPCID) 20 MG Tablet Take 1 Tab by mouth every night at bedtime. silver sulfadiazine (SILVADENE) 1 % cream Apply topically to affected area daily. Apply to right great toe potassium chloride ER 10 MEQ TBCR TAKE 1 TABLET BY MOUTH ONCE DAILY WITH FOOD escitalopram (LEXAPRO) 20 MG Tablet TAKE 1 TABLET BY MOUTH ONCE DAILY Blood Glucose Monitoring Suppl (BLOOD GLUCOSE MONITOR SYSTEM) w/Device KIT Use to test once per day. Albuterol Sulfate (ALBUTEROL HFA) 108 (90 BASE) MCG/ACT inhaler Inhale 2 Puffs by mouth every 4 hours as needed for Cough or Wheezing. With spacer nystatin (NYSTOP) 501095 UNIT/GM powder Apply topically to affected area 3 times a day. albuterol sulfate (PROVENTIL) (2.5 MG/3ML) 0.083% nebulizer solution Inhale 1 Vial via nebulizer every 6 hours as needed for Wheezing. fluticasone (FLONASE) 50 MCG/ACT nasal spray INSTILL 2 SPRAYS INTO EACH NOSTRIL DAILY DIRECTED vitamin c (ASCORBIC ACID) 500 MG Tablet Take 500 mg by mouth daily. CENTRUM SILVER PO TABS Take 1 Tab by mouth daily. . Review of patient's allergies indicates: Allergen Reactions Adhesive Tape Itching Pcn [Penicillins] Rash Perflutren Protein A Microsph Definity-lower back pain . EXAMINATION Filed Vitals: 12/03/20 1424 BP: 128/80 Pulse: 67 Resp: 16 Temp: 36.9 C (98.4 F) TempSrc: Tympanic SpO2: 93% Weight: 117.9 kg (260 lb) Height: (!) 1.499 m (4' 11") BMI Body mass index is 52.51 kg/m. . PHYSICAL EXAMINATION . Obesity : obese gradual over years Body mass index is 52.51 kg/m. General : healthy, alert, no distress, cooperative, smiling, comfortable and On wheelcair [place] : Mallampati class IV, Chin-Chest= 5, Neck Cir Circ 23 Neck : supple, no adenopathy, thyroid normal size, non-tender, without nodularity, no bruits, noJVD and neck veins flat Nose : no mucosal erythema, no mucosal edema, no purulent discharge, clear rhinorrhea CVS : regular rate and rhythm, no murmurs, clicks, or gallops, PMI non- displaced, no JVD, S3, orAJR and gr 1-2/6 systolic flow murmur at LSB Lungs : Percussion normal, Good diaphragmatic excursion and Lungs clear to auscultation Abdomen : XXL Abdomen soft, Non-Tender, Normal active bowel sounds, No abnormal masses, No hepatosplenomegaly, No bruits Extremit : Edema 3+, No deformities, No skin discoloration Nails : Clubbing none, non dystrophic NEURO : no significant headache, no seizures, no strokes SKIN : no new rashes, no itching Other : . LABORATORY & IMAGERY: (All reports and images were personally reviewed and were shared with patient and family in person) No results found for this or any previous visit (from the past 24 hour(s)). Results for orders placed or performed in visit on 11/30/20 HEMOGLOBIN A1C Result Value Ref Range Hemoglobin A1C 6.9 (H) 4.0 - 5.6 % Estimated Average Glucose 151 (H) <126 mg/dL *Note: Due to a large number of results and/or encounters for the requested time period, some results have not been displayed. A complete set of results can be found in Results Review. . PULM FUNCTION No results found. However, due to the size of the patient record, not all encounters were searched.Please check Results Review for a complete set of results. . CHEST X-RAY : 11/19/2020 .No acute cardiopulmonary process on plain film examination. CT THORAX : 09/24/[address] evidence for acute pulmonary embolus within the main, lobar or segmental pulmonary arteries. 2. No acute findings within the chest to explain the patient's symptoms. 3. Morphologic changes of hepatic cirrhosis. CT PE : 09/24/[address] SINUS : na CT Neck : 07/14/2020 .1. No convincing acute abnormalities identified. Mild generalized age-related cerebral parenchymalatrophy and findings suggestive of mild to moderate chronic small vessel white ischemic changes. MRI is much more sensitive for detection of acute ischemia and other intracranial pathologies, and could be obtained as clinically indicated. 2. Mild atherosclerotic disease without evidence of stenosis. Otherwise, unremarkable CTA of the cervical and intracranial vessels. 3. Chronic and incidental nonvascular findings as described above. PET SCAN Malig : na . VQ Scan : na . Bone Scan : na . Cardiac Scan : na . EKG : 11/19/2020 .Warning: interpretation of this ECG, although attempted, may be adversely affected by data qualityNormal sinus rhythm Low voltage QRS, consider pulmonary disease, pericardial effusion, or normal variant Abnormal ECG When compared with ECG of 24-SEP-2020 17:18, No significant change Ventricular Rate: 74 Atrial Rate: 76 QRS Duration: 90 QT/QTc: 394/437 ms P-R-T [place]: 0 : -8 : 33 degrees ECHO : 07/05/2020.The examination is inadequate to evaluate the referral indication. The qualitative LV ejection fraction is 65-69% (normal). The left ventricular wall motion is normalby limited analysis. All left ventricular segments are not visualized. Mitral regurgitation is detected but not quantitated. The valve is not visualized but peak aortic valve velocities are >2 m/ssuggesting borderline mild stenosis. If there is suspicion for endocarditis and patient is clinically appropriate, a ALEKS would be required to visualize the valves. Other : VISIT SUMMATION : 12/03/2020 2:57 PM, for Ms. Shaina Bustos who is 65 year old female, Social History Tobacco Use Smoking Status Never Smoker Smokeless Tobacco Never Used , Body mass index is 52.51 kg/m., with past medical H/O of Past Medical History: Diagnosis Date Cerebral palsy [...] less than 7.0% ([facility]) 09/26/2013 ICD-10 update of inactive term who came today for RT chest pain, RLD, BESSIE, Obesity . PRIMARY DIAGNOSIS / ASSOCIATED ORDERS / PLAN OF CARE RT Lower Chest wall muscular pain by palpation Analgesics/Heat/change in posture. Suspected DVT (deep vein thrombosis) (Primary) - VASC DUPLEX VENOUS LE BILAT BESSIE on CPAP Restrictive lung disease due to morbid obesity Intermittent asthma with reliever use up to twice per week without complication Gastroesophageal reflux disease, unspecified whether esophagitis present Acquired hypothyroidism Other orders - Benzonatate 100 MG Oral Capsule ([place]); Take 2 Caps by mouth 3 times a day as needed for Cough for up to 30 days. Follow Up: Return in about 6 months (around 06/05/2021) for Clinic Visit. | For: Clinic Visit | Check-out note: US of both legs RTC 6 M any pulm provider . To do list next visit : [X] Summation, F/U care and review of today's ordered tests/imagery listed above. [X] Specifically review: Check US COVID19 Instructions: Patient advised to have COVID19 vaccination, and still continue mitigation, handwashing and social distancing and 2 masks until further guidelines are issuers. Other Plan of care (See above for specific orders) 1) Return Visit ---in 6 months with me or sooner if needed. ---Patient instructed to contact office or go to ER, if pulmonary symptoms worsen. 2) Disposition ---Disposition: [place] OFFICE CONSULTATION NEW/ESTAB PATIENT 60 MIN [[id number]] 3) Home care ---Instructed staff to call clinic if patient experiencing increased SOB, wheezing, chest tightness, increased cough, increased sputum with change in color or consistency and fever. 4) Education ---Personally reviewed and shared all imagery, lab results, management plan and treatment with patient. ---Disease specific handouts were given to patient by nursing as indicated. ---Inhaler training and technical coaching was provided by nursing. ---My business card was provided to patient by scheduling staff. ---Healthy eating, exercise and healthy life style was encouraged. 5) Interventions ---verbal instructions 6) Patient/family ---Verbalized understanding and agrees with plan of care. All questions answered. ---Patient understands that if symptoms fail to improve or worse, to call the office and seek emergent care in ER/PCP. ---My business card with contact information and survey questionnaire was given to patient. 7) COVID19 Instructions ---Patient advised to have COVID19 vaccination, and still continue mitigation, handwashing and social distancing and 2 masks until further guidelines are issued by CDC. TIME SPENT: --- I spent more than 50% of the 60 minutes pbeo-hm-ompe visit, counseling, coordinating care and providing education. All imagery and lab results were shown and discussed with patient. Mabel Cifuentes MD Pulmonary Medicine, [address] [address] 12/03/2020 2:57 PM Pulmonary & Critical Care Medicine (Preferred) E-mail : [email or web address] . View alert to : DO Alexandra Cosme DO . DISCLAIMER: Some parts of this note are dictated and verbally transcribed via Dictation system, and in part utilizing [employer] Speech Voice Recognition Software. Occasional Errors, spelling flaws and omissions are inherent in digital transcriptions. Grammatical errors, random word insertions, prounoun erros, and incomplete sentences are an occasional consequence of this system due to software limitations, ambient noise, and hardware issues. Any formal questions or concerns about the content, text, or information contained within the body of this dictation should be directly addressed to the provider for clarification. To contact a physician responsible for this patients hospital care, please call [phone] or [email or web address]. Please contact the undersigned for any clarification/correction in the dictated transcript as needed. Note dictated by: Mabel Cifuentes MD 12/03/2020 2:57 PM -----------------------------------------> END <---------------------------------------- documented in this encounter Nursing Notes * Saloni Ariza LPN - 12/03/2020 2:30 PM EDT Chief Complaint Patient presents with NEW PATIENT Asthma MMRC Dyspnea Scale = 0 (I only get breathless with strenuous exercise) Reason for visit : New Ashtma Concerns/Issues : Right sided pain with breathing Last Exacerbation : none recent Pulm related ER/HOSP : none recent Outside Testing : none recent Asthma Control Test Question 12/03/2020 2:29 PM EDT Please select the best response to the five questions below, by clicking the appropriate option button. In the past 4 weeks, how much of the time did your asthma keep you from getting as much done at work, school or at home? All of the time During the past 4 weeks, how often have you had shortness of breath? More than once a day During the past 4 weeks, how often did your asthma symptoms (wheezing, coughing, shortness of breath, chest tightness or pain) wake you up at night or earlier than usual in the morning? 4 or more nights a week During the past 4 weeks, how often have you used your rescue inhaler or nebulizer medication (such as albuterol)? 1 or 2 times per day How would you rate your asthma control during the past 4 weeks? Not controlled at all Total ACT Adult Score (range: 5 - 25) 6 (Poorly Controlled) Total ACT Child Score (range: 0 - 27) Incomplete documented in this encounter Plan of Treatment Upcoming Encounters Date Type Specialty Care Team Description 12/04/2020 Hem/Onc Treatment Hematology Oncology Maryellen, Chair [address] Hem On[address] [facility] [address] [phone] 12/14/2020 Office Visit [facility] [address] [place] [address] [phone] 12/18/2020 Hem/Onc Treatment Hematology Oncology Maryellen, Chair 7 Hem Onc Sc[address] [facility] [address] [phone] 01/01/2021 Office Visit Hematology Oncology Tono Sanchez MD 200 [place] [address] [phone] 01/21/2021 Office Visit [facility]astroenterology [facility]sa Stout [facility] [address] [facility] [address] [phone] 03/03/2021 Nutrition Services Gastroenterology Melissa Omalley, [place] [address] [place] [address] [place] [address] [phone] 03/04/2021 Office Visit Family Medicine Alexandra Caceres, [address] [place] [address] [phone] 09/09/2021 Imaging Radiology Scheduled Orders Name Type Priority Associated Diagnoses Orde r Schedule VASC DUPLEX VENOUS LE BILAT Medical Imaging Routine Suspected DVT (deep vein thrombosis) Ordered: 12/03/2020 Health Maintenance Due Date Last Done Comments [...] of this encounter Implants Implanted Type Area Site Operations Manager Device Identifier Shelf Expiration Date Model / Serial / Lot Microtech Sure Clip Implanted:Qty: 2 on 06/03/2020 by Janis Hatch DO at OR [facility] Clip N/A: Colon 04/21/2022 [facility]-F-26-2 35-C-R / / [id number] documented as of this encounter Visit Diagnoses Diagnosis Suspected DVT (deep vein thrombosis)- Primary Acute venous embolism and thrombosis of unspecified deep vessels of lower extremity BESSIE on CPAP Obstructive sleep apnea (adult) (pediatric) Restrictive lung disease Other diseases of lung, not elsewhere classified Intermittent asthma with reliever use up to twice per week without complication Gastroesophageal reflux disease, unspecified whether esophagitis present Acquired hypothyroidism Unspecified hypothyroidism documented in this encounter Advance Directives Documents on File Type Date Recorded Patient Biochemical Engineer Expl anation Advanced Directive service a [...] File Name Relationship Healthcare Agent [facility] Communication Syed Bustos Spouse Emergency Contact
--- OUTSIDE RECORDS SUMMARY | 2023-05-10 21:25 | External Medical Summary | Summary of Care ---
Author Name Unknown Organization [facility] [place] [address] Care Team Providers Care Health Technician Hearing Name Role Phone Alexandra Caceres DO Primary Care Provider Encounter Details Date Type Department Care Team Description 12/04/2020 Telephone [facility] [address], [place] [id number] Alexandra Caceres DO [address], [place] [id number] Allergies Active Allergy Reactions Severity Noted Date [...] 120 Vial 11 10/02/2019 Active nystatin (NYSTOP) 336301 UNIT/GM powder Apply topically to affected area [...] 30 mL 3 08/31/2020 Active Dexcom G6 Nuclear Auxiliary Operator Device Use as directed. To test [...] Strip 3 10/29/2020 Active OneTouch Delica Plus [id number] TESTING once daily 100 Each 3 10/29/2020 [...] pain 01/24/2012 01/17/2017 Genetic Sleep Disorder Research Other*[id number] 05/13/2011 04/07/2016 Obstructive sleep apnea 01/18/2011 12/27/19 [...] or bathing? 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-botany technician helps 07/15/2020 Because of a physical, menta [...] Team Description 12/04/2020 Hem/Onc Treatment Hematology Oncology Park, Chair 8 Hem Onc Sc[address] [place] [address] [phone] 12/14/2020 Office Visit Pharmacy [facility] [address] [place] [address] [phone] 12/18/2020 Hem/Onc Treatment Hematology Oncology Cyrus, Chair 7 Hem Onc [facility] 200 [place] [address] [phone] 01/01/2021 Office Visit Hematology Oncology Tono Sanchez MD 200 [place] [address] [phone] 01/21/2021 Office Visit Gastroenterology Lyssa Stout CRNP 132 [facility] [place] [address] [phone] 03/03/2021 Nutrition Services Gastroenterology Melissa Omalley, RDN [address] [place] [address] [place] [address] [phone] 03/04/2021 Office Visit Family Medicine Alexandra Caceres, [address] [place] [address] [phone] 09/09/2021 Imaging Radiology Health Maintenance Due Date [...] of this encounter Implants Implanted Type Area Cutlet Maker Pork Device Identifier Shelf Expiration Date Model / Serial / Lot Microtech Sure Clip Implanted:Qty: 2 on 06/03/2020 by Janis Hatch DO at OR [facility] Clip N/A: Colon 04/21/2022 [facility]-F-26-2 35-C-R / / [id number] documented as of this encounter Advance Directives Documents on File Type Date Recorded Patient Protective Signal Superintendent Expl anation Advanced Directive service a [...]
--- OUTSIDE RECORDS SUMMARY | 2023-05-10 21:25 | External Medical Summary | Summary of Care ---
Author Name Unknown Organization [place] [address] Care Team Providers Care Cheese Processor Name Role Phone Alexandra Caceres DO Primary Care Provider Reason for Visit * Reason Onset Date Comments Test Results 12/04/2020 Encounter Details Date Type Department Care Team Description 12/04/2020 Telephone [place] [address], [place] [id number] Alexandra Caceres DO [address] [place] [address] [phone] Test Results Allergies Active Allergy Reactions Severity [...] 120 Vial 11 10/02/2019 Active nystatin (NYSTOP) 651864 UNIT/GM powder Apply topically to affected area [...] 30 mL 3 08/31/2020 Active Dexcom G6 Pipe Smoking Machine Offbearer Device Use as directed. To test blood [...] Strip 3 10/29/2020 Active OneTouch Delica Plus Vakexo00T TESTING once daily 100 Each 3 10/29/2020 [...] pain 01/24/2012 01/17/2017 Genetic Sleep Disorder Research Other*[id number] 05/13/2011 04/07/2016 Obstructive sleep apnea 01/18/2011 12/27/19 [...] or bathing? 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-cut out and marking machine operator helps 07/15/2020 Because of a physical, [...] encounter Miscellaneous Notes * Telephone Encounter - Naga Rodrigues OSA [...] Care Team Description 12/14/2020 Office Visit Pharmacy [facility] [address] [place] [address] [phone] 12/18/2020 Hem/Onc Treatment Hematology Oncology Delta, Chair 7 Hem Onc [facility] [address] [place] [address] [phone] 01/01/2021 Office Visit Hematology Oncology Tono Sanchez MD [address] [place] [address] [phone] 01/21/2021 Office Visit [facility]astroenterology [facility]sa Stout CRNP [address] [facility] [address] [phone] 03/03/2021 Nutrition Services Gastroenterology Melissa Omalley, SAMANTHA [address] [place] [facility] [place] [address] [phone] 03/04/2021 Office Visit Family Medicine Alexandra Caceres DO [address] [place] [address] [phone] 09/09/2021 Imaging Radiology Health Maintenance Due Date [...] this encounter Implants Implanted Type Area Manufacturing Associate Device Identifier Shelf Expiration Date Model / Serial / Lot Microtech Sure Clip Implanted:Qty: 2 on 06/03/2020 by Janis Hatch DO at OR [facility] Clip N/A: Colon 04/21/2022 [facility]-F-26-2 35-C-R / / [id number] documented as of this encounter Advance Directives Documents on File Type Date Recorded 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
--- OUTSIDE RECORDS SUMMARY | 2023-05-10 21:26 | External Medical Summary | Summary of Care ---
Author Name Unknown Organization [facility] Address [place] [address] Care Team Providers Care Consultant Technology Name Role Phone Alexandra Caceres DO Primary Care Provider Reason for Visit * Reason Onset Date Comments Appointment 11/30/2020 Appt . podiatry Encounter Details Date Type Department Care Team Description 11/30/2020 Telephone [place] [address], [place] [id number] Alexandra Caceres DO [address] [place] [address] [phone] Appointment (Appt . podiatry ) Allergies Active Allergy Reactions Severity Noted [...] 120 Vial 11 10/02/2019 Active nystatin (NYSTOP) 710607 UNIT/GM powder Apply topically to affected area [...] 30 mL 3 08/31/2020 Active Dexcom G6 Transformer Assembly Supervisor Device Use as directed. To [...] Strip 3 10/29/2020 Active OneTouch Delica Plus Padpom78V TESTING once daily 100 Each 3 10/29/2020 [...] pain 01/24/2012 01/17/2017 Genetic Sleep Disorder Research Other*[id number] 05/13/2011 04/07/2016 Obstructive sleep apnea 01/18/2011 12/27/19 [...] or bathing? 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-coordinator of health services helps 07/15/2020 Because of a physical, menta [...] encounter Miscellaneous Notes * Telephone Encounter - Kike Urbano OSA - 12/03/2020 9:22 AM EDT [facility] [place] They are located in [place]- did pt want to be schedule there? * Telephone Encounter - Kiesha Schmitt LPN - 12/01/2020 2:51 PM EDT Referral for podiatry is signed, can you have her scheduled in [place] as requesting? (see messagebelow from Dulce Ann) * Telephone Encounter - Dulce Call OSA - 11/30/2020 11:37 AM EDT Pt Sukumars jason Johnson documented in this encounter Plan of Treatment Upcoming Encounters Date Type Specialty Care Team Description 12/03/2020 Office Visit Pulmonary Mabel [facility]ifuentes [facility] [address] [facility] [id number] 12/04/2020 Hem/Onc Treatment Hematology Oncology Gideon, Chair 8 Hem Onc [address] [place] [address] [phone] 12/14/2020 Office Visit Pharmacy [facility] [address], [place] [phone] 12/18/2020 Hem/Onc Treatment Hematology Oncology Gideon, Chair 7 Hem Onc [address] [place] [address] [phone] 01/01/2021 Office Visit Hematology Oncology Tono Sanchez MD [address] [place] [address] [phone] 01/21/2021 Office Visit Gastroenterology Lyssa Stout CRNP [address] [facility] [address] [phone] 03/03/2021 Nutrition Services Gastroenterology Melissa Omalley, SAMANTHA [address] [facility] [place] [address] [phone] 03/04/2021 Office Visit Family Medicine Alexandra Caceres DO [address] [place] [address] [phone] 09/09/2021 Imaging Radiology Health Maintenance Due Date [...] of this encounter Implants Implanted Type Area Louver Door Assembler Device Identifier Shelf Expiration Date Model / Serial / Lot Microtech Sure Clip Implanted:Qty: 2 on 06/03/2020 by Janis Hatch DO at OR [facility] Clip N/A: Colon 04/21/2022 [facility]-F-26-2 35-C-R / / [id number] documented as of this encounter Advance Directives Documents on File Type Date Recorded 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
--- OUTSIDE RECORDS SUMMARY | 2023-05-10 21:26 | External Medical Summary | Summary of Care ---
Author Name Unknown Organization [facility] Address [facility] [place] [address] Care Team Providers Care Associate Art Director Name Role Phone Alexandra Caceres DO Primary Care Provider [phone] Reason for Referral * Evaluate & Treat - Unlimited Visits (Within 10 days (routine)) Status Reason Specialty Diagnoses / Procedures Referred By Contact Referred To Contact Authorized Specialty Services Required Podiatry Diagnoses Ingrown toenail of left foot Alexandra Caceres DO [address] [place] [address] Question Answer Referral Priority Within 10 days (routine) Which condition are you referring this patient for? In-grown nails Electronically signed by Alexandra Caceres DO at * Evaluate & Treat - Unlimited Visits (Within 10 days (routine)) Status Reason Specialty Diagnoses / Procedures Referred By Contact Referred To Contact Authorized Specialty Services Required Pulmonary Diseases / Pulmonary Diagnoses Restrictive lung disease Alexandra Caceres DO [address] [place] [address] Question Answer Referral Priority Within 10 days (routine) Primary Reason for Referral? Asthma/COPD Electronically signed by Alexandra Caceres DO at Reason for Visit * Reason Comments Follow Up Pain Left foot Great toe and 2nd toe, would like to see foot doctor. Encounter Details Date Type Department Care Team Description 11/30/2020 Office Visit [facility] [address] [place] [address] Alexandra Caceres DO [address] [place] [address] [phone] Intermittent asthma with reliever use up to twice per week without complication*; Restrictive lung disease; Type 2 diabetes mellitus with hemoglobin A1c goal of less than 7.0% (HCC); Ingrown toenail of left foot; THAD on CPAP; Lymphedema; Acquired hypothyroidism; HTN, goal below 140/90; Cirrhosis of liver without ascites, unspecified hepatic cirrhosis type (HCC); Other cerebral palsy (HCC) Allergies Active Allergy Reactions Severity Noted Date Comments Adhesive Tape Itching 04/29/2020 Penicillins Rash 02/12/2008 Perflutren Protein A Microsph 2019 Definity-lower back pain documented as of this encounter (statuses as of 11/30/2020) Medications Medication Sig Dispensed Refills Start Date [...] 120 Vial 11 10/02/2019 Active nystatin (NYSTOP) 420552 UNIT/GM powder Apply topically to affected area [...] 30 mL 3 08/31/2020 Active Dexcom G6 Superintendent Plant Device Use as directed. To test [...] TO ACCESSING. 30 g 3 10/09/2020 Active AppteraTouch Verio In Vitro Strip (Glucose Blood) TESTING once daily 100 Strip 3 10/29/2020 Active AppteraTouch Delica Plus [id number] TESTING once daily 100 Each 3 10/29/2020 [...] as of this encounter (statuses as of 11/30/2020) Active Problems Problem Noted Date Uncontrolled type [...] as of this encounter (statuses as of 11/30/2020) Resolved Problems Problem Noted Date Resolved Date [...] pain 01/24/2012 01/17/2017 Genetic Sleep Disorder Research Other*[id number] 05/13/2011 04/07/2016 Obstructive sleep apnea 01/18/2011 12/27/19 [...] as of this encounter (statuses as of 11/30/2020) Immunizations Name Administration Dates Next Due COVID-19 [...] Sign Reading Time Taken Comments Blood Pressure 130/64 11/30/2020 10:28 AM EDT Pulse 68 11/30/2020 10:28 AM EDT Temperature 36.2 C (97.2 F) 11/30/2020 10:28 AM E DT Respiratory Rate - - Oxygen Saturation 94% 11/30/2020 10:28 AM EDT Inhaled Oxygen Concentration - [...] or bathing? 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-toddler caregiver helps 07/15/2020 Because of a physical, [...] as of this encounter Progress Notes * Alexandra Caceres, - 11/30/2020 10:47 AM EDT Subjective: Shaina Bustos is a 65 year old female. Chief Complaint Patient presents with Follow Up Pain Left foot Great toe and 2nd toe, would like to see foot doctor. HPI: 65 year old female here today for a follow-up. She carries hx of Cerebral Palsy, Type 2 diabetes, pancytopenia, Cirrhosis of the liver, splenomegaly, Esophageal Varices, depression, wheelchair dependent, hypothyroidism, THAD and on CPAP, along with asthma, and nocturnal hypoxemia, in which she is on oxygen at night. I reviewed her chart, she did have ER visit for Chest pain, COVID testing negative, cardiac work upwas negative, and she was discharged home. She was seen about 2 weeks ago here for fever, and foundto have Right middle lobe infiltrate. And was treated initially with cipro which was changed to oral doxy and 1 dose of Rocephin. Her repeat CXR was clear. She continues to have chest congestion. Shestates she is taking her advair but misses doses. On lung imaging she often has Right basilar atelectasis. She is to be on nebulizers but she rarely uses these. Today she feels fatigued. She has a headache. Her is worried that on her R great toe she has the start of an ingrown nail. She would like to see podiatry. Also her 2nd toe has some bruising. Her accompanies her today. Which is typical. He has no new complaints to offer. He is her primary sample grader. PHM: Patient Active Problem List Diagnosis Code Venous insufficiency I87.2 Spinal stenosis of lumbar region without neurogenic claudication M48.061 Cerebral palsy ([facility]) G80.9 HTN, goal below 140/90 [...] less than 7.0% ([facility]) E11.9 Vitamin D deficiency E55.9 Restrictive lung disease J98.4 Obesity, morbid (more than 100 lbs over ideal weight or BMI > 40) ([facility]) E66.01 Dyslipidemia, goal LDL below 70 E78.5 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 R39.81 Acquired hypothyroidism E03.9 Chronic pain syndrome G89.4 MEDICATION USE AGREEMENT [id number] Cirrhosis of liver ([facility]) K74.60 THAD on CPAP G47.33, Z99.89 Wheelchair dependent Z99.3 Pancytopenia ([facility]) D61.818 Ambulatory dysfunction R26.2 DM type 2 with diabetic peripheral neuropathy ([facility]) E11.42 Insomnia G47.00 Recurrent major depressive disorder, in partial remission ([facility]) F33.41 Impaired mobility and ADLs Z74.09, Z78.9 Generalized weakness R53.1 Gastroesophageal reflux disease K21.9 History of Achilles tendon repair Z98.890 Anemia D64.9 Fibromyalgia M79.7 Achilles tendinitis, right leg M76.61 DNR (do not resuscitate) Z66 Thrombocytopenia ([facility]) D69.6 Iron deficiency anemia due to chronic blood loss D50.0 Splenomegaly R16.1 Cellulitis of right lower extremity L03.115 Cellulitis of right toe L03.031 Diabetic ulcer of right great toe (HCC) E11.621, L97.519 Bacteremia R78.81 Acute blood loss anemia D62 Esophagitis K20.90 Esophageal varices (HCC) I85.00 Uncontrolled type 2 diabetes mellitus with hyperglycemia (HCC) E11.65 Current Outpatient Medications Medication Sig Dispense Refill Cyclobenzaprine HCl 10 MG Oral Tablet (Flexeril) [...] CAPSULES IN THE EVENING 180 Cap 5 Insulin Aspart 100 UNIT/ML Subcutaneous Solution (NovoLOG) Inject 28 units under the skin before breakfast, 28 units before lunch, and 32 units before supper 90 mL 3 Levothyroxine Sodium 200 MCG Oral Tablet (Levoxyl) [...] week 6 mL 3 OneTouch Delica Plus [id number] TESTING once daily 100 Each 3 OneTouch Verio In Vitro Strip (Glucose Blood) TESTING once daily 100 Strip 3 Lidocaine-Prilocaine 2.5-2.5 % External Cream (Emla) Apply topically to affected area as needed forOther (for port). APPLY TO SKIN OVER MEDIPORT & COVER 1HR PRIOR TO ACCESSING. 30 g 3 Nadolol 20 MG Oral Tablet (CORGARD) One daily 90 Tab 1 Dexcom G6 Superintendent Plant Device Use as directed. To test [...] 2 times a day. 180 Tab 1 BD Pen Needle Mini U/F 31G X 5 MM (Insulin Pen Needle) Use to inject insulin four times daily; E11.42 400 Each 3 famotidine (PEPCID) 20 MG Tablet Take 1 [...] With spacer 16 g 1 nystatin (NYSTOP) 892124 UNIT/GM powder Apply topically to affected area 3 times a day. 60 g 1 albuterol sulfate (PROVENTIL) (2.5 MG/3ML) 0.083% nebulizer solution Inhale 1 Vial via nebulizer every 6 hours as needed for Wheezing. 120 Vial 11 fluticasone (FLONASE) 50 MCG/ACT nasal spray INSTILL 2 SPRAYS INTO EACH NOSTRIL DAILY DIRECTED 16 g 5 vitamin c (ASCORBIC ACID) 500 MG Tablet Take 500 mg by mouth daily. CENTRUM SILVER PO TABS Take 1 Tab by mouth daily. 1 Tab 0 Review of patient's allergies indicates: Allergen Reactions Adhesive Tape Itching Pcn [Penicillins] Rash Perflutren Protein A Microsph Definity-lower back pain Objective: BP 130/64 | Pulse 68 | Temp 36.2 C (97.2 F) (Tympanic) | SpO2 94% Physical Exam: General: alert, no distress and appears short of breath. Heart: regular rate & rhythm, no murmurs and no gallops Lungs: coarse sounds heard, expiratory wheezes bilaterally Abdomen: abdomen soft, non-tender, normal bowel sounds and no masses or organomegaly Extremities: chronic lymphedema changes in her legs. The R great toe, appeared non infected, the toenail has fungus there. Bruising on the toe nail bed on the L 2nd toe. ASSESSMENT/PLAN: Intermittent asthma with reliever use up to twice per week without complication (Primary) Restrictive lung disease - PULMONARY REFERRAL OP Encouraged pt to use her nebs 2-3 times per day. Along with the Advair. She may need to wear her oxygen during the day. She reports using it when she is napping and laying down flat. She has yet to establish with pulmonary. I have seen her now for a few months. Typically when I see her she often is congested and has a lot of wheezing. She may need her inhalers changed. Type 2 diabetes mellitus with hemoglobin A1c goal of less than 7.0% ([facility]) - HEMOGLOBIN A1C; Future; Expected date: 11/30/2020 Ingrown toenail of left foot - PODIATRY REFERRAL OP THAD on CPAP Continued use. Lymphedema Stable. No areas of infection. Acquired hypothyroidism Recent TSH and in normal range. HTN, goal below 140/90 Stable. Cirrhosis of liver without ascites, unspecified hepatic cirrhosis type (HCC) Imaging MRI of her liver stable. Other cerebral palsy (HCC) Follow-up: Return in about 3 months (around 03/02/2021). | Check-out note: Needs evaluation podiatryand pulmonary . Alexandra Caceres DO documented in this encounter Nursing Notes * Tamara Fabian LPN - 11/30/2020 10:30 AM EDT Chief Complaint Patient presents with Follow Up Pain Left foot Great toe and 2nd toe, would like to see foot doctor. documented in this encounter Plan of Treatment Upcoming Encounters Date Type Specialty Care Team Description 12/01/2020 Nutrition Services Gastroenterology Melissa Omalley, SAMANTHA [address] [place] [address] [phone] 12/04/2020 Hem/Onc Treatment Hematology Oncology [place], Chair [address] [place] [address] [phone] 12/14/2020 Office Visit [facility] [address] [place] [address] [phone] 12/18/2020 Hem/Onc Treatment Hematology Oncology [place], Chair [address] [place] [address] [phone] 01/01/2021 Office Visit Hematology Oncology Tono Sanchez MD [address] [place] [address] [phone] 01/21/2021 Office Visit Gastroenterology Lyssa Stout CRNP [address] [place] [address] [phone] 03/04/2021 Office Visit Family Medicine Alexandra Caceres, [address], [place] [id number] 09/09/2021 Imaging Radiology Pending Results Name Type Priority Associated Diagnoses Date /Time HEMOGLOBIN A1C Lab Routine Type 2 diabetes mellitus with hemoglobin A1c goal of less than 7.0% (HCC) 11/30/2020 11:32 AM EDT Scheduled Orders Name Type Priority Associated Diagnoses Orde r Schedule HEMOGLOBIN A1C Lab Routine Type 2 diabetes mellitus with hemoglobin A1c goal of less than 7.0% (HCC) Expected: 11/30/2020 (Approximate), Expires: 11/30/2021 Scheduled Referrals Name Type Priority Associated Diagnoses Orde r Schedule PULMONARY REFERRAL OP Referral Within 10 days (routine) Restrictive lung disease Ordered: 11/30/2020 PODIATRY REFERRAL OP Referral Within 10 d ays (routine) Ingrown toenail of left foot Ordered: 11/30/2020 Health Maintenance Due Date Last Done Comments [...] series) 12/21/2020 11/23/2020 DIABETES-HGBA1C EVERY 6 MONTHS 01/04/2021 07/06/2020, 05/26/2020, 04/28/2020, Additional history exists Yearly B-12 07/14/2021 07/14/2020, [...] of this encounter Implants Implanted Type Area Raveler Device Identifier Shelf Expiration Date Model / Serial / Lot Microtech Sure Clip Implanted:Qty: 2 on 06/03/2020 by Janis Hatch DO at OR [facility] Clip N/A: Colon 04/21/2022 [facility]-F-26-2 35-C-R / / [id number] documented as of this encounter Visit Diagnoses Diagnosis Intermittent asthma with reliever use up to twice per week without complication- Primary Restrictive lung disease Other diseases of lung, not elsewhere classified Type 2 diabetes mellitus with hemoglobin A1c goal of less than 7.0% (HCC) Ingrown toenail of left foot THAD on CPAP Obstructive sleep apnea (adult) (pediatric) Lymphedema Other lymphedema Acquired hypothyroidism Unspecified hypothyroidism HTN, goal below 140/90 Unspecified essential hypertension Cirrhosis of liver without ascites, unspecified hepatic cirrhosis type (HCC) Other cerebral palsy (HCC) documented in this encounter Advance Directives Documents on File Type Date Recorded Patient Spray Drier Expl anation Advanced Directive service a [...] on File Name Relationship Healthcare Agent Vidal mendosa Communication Syed Bustos Spouse Emergency Contact "
--- OUTSIDE RECORDS SUMMARY | 2023-05-10 21:26 | External Medical Summary ---
Author Name Unknown Address Unknown Organization K01:[facility] - [address] [place] [address] Laboratory Report Ordering Provider Test Date Status INDRA KO 11/30/2020 11:32:32 Final Observation Date Value Abnormality Reference (Units ) Status HbA1C 11/30/2020 11:32:32 6.9 Above high normal 4. 0-5.6 (%) Final Performing Location [facility] - [address] [place] [address]
--- OUTSIDE RECORDS SUMMARY | 2023-05-10 21:26 | External Medical Summary | Summary of Care ---
Author Name Unknown Organization [facility] Address [place] [address] Care Team Providers Care Dobby Loom Fixer Name Role Phone Maikel Caceres DO Primary Care Provider Reason for Visit * Reason Comments eRx-Medication Refill Encounter Details Date Type Department Care Team Description 11/28/[address] [id number] Maikel Caceres DO [address] [place] [address] [phone] Allergies Active Allergy Reactions Severity Noted Date [...] 120 Vial 11 10/02/2019 Active nystatin (NYSTOP) 759832 UNIT/GM powder Apply topically to affected area [...] 30 mL 3 08/31/2020 Active Dexcom G6 Bond Trader Device Use as directed. To test blood [...] Strip 3 10/29/2020 Active OneTouch Delica Plus [id number] TESTING once daily 100 Each 3 10/29/2020 [...] AT BEDTIME 90 Tab 2 11/30/2020 Active Cyclobenzaprine HCl 10 MG Oral Tablet (FLEXERIL) TAKE 1 TABLET BY MOUTH AT BEDTIME 30 Tab 2 08/12/2020 1 Discontinued documented as of this encounter (statuses as of 11/30/2020) Active Problems Problem Noted Date Uncontrolled type 2 diabetes mellitus wi th hyperglycemia 07/15/2020 Acute blood loss anemia 07/06/2020 Esophagitis 07/06/2020 Esophageal varices 07/06/2020 Bacteremia 07/04/2020 Diabetic ulcer of right great toe 2019 Cellulitis of right toe 04/18/2020 Cellulitis of right lower extremity 01/2020 Iron deficiency anemia due to chronic bl [...] Resolved Problems Problem Noted Date Resolved Date Pain of upper abdomen 04/23/2020 05/05/2020 History of kidney stones 04/08/2019 020 History [...] pain 01/24/2012 01/17/2017 Genetic Sleep Disorder Research Other*[id number] 05/13/2011 04/07/2016 Obstructive sleep apnea 01/18/2011 12/27/19 [...] or bathing? 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-stain dipper helps 07/15/2020 Because of a physical, menta [...] Telephone Encounter - Maikel Caceres DO - 11/30/2020 9:20 AM EDT Signed Prescriptions: Disp Refills Cyclobenzaprine HCl 10 MG Oral Tablet (Fle*30 Tab 2 Sig: TAKE 1 TABLET BY MOUTH AT BEDTIME Authorizing Provider: MAIKEL CACERES * Telephone Encounter - Hayden Grimes [facility] - 11/29/2020 8:36 PM EDT Pending Prescriptions: Disp Refills Cyclobenzaprine HCl 10 MG Oral Tablet (Fle*30 Tab 2 Sig: TAKE 1 TABLET BY MOUTH AT BEDTIME * Telephone Encounter - Hayden Grimes RPh - 11/29/2020 8:36 PM EDT Pending Prescriptions: Disp Refills Cyclobenzaprine HCl 10 MG Oral Tablet (Fle*30 Tab 2 Sig: TAKE 1 TABLET BY MOUTH AT BEDTIME Last Office/Telemedicine Visit: 11/18/2020 Next Office Visit: 11/30/2020 Scheduled Provider(s): Maikel Caceres, DO If no future appointments scheduled, and last appointment is greater than a year ago, please schedule patient for a follow-up appointment Last date the medication was ordered: 08/12/20 Pharmacy: [facility] [id number] Is this request for a controlled [...] PM ALT 23 08/21/2020 04:35 PM HGBA1C 9.9 (H) 07/06/2020 05:24 AM documented in this encounter Plan of Treatment Upcoming Encounters Date Type Specialty Care Team Description 11/30/2020 Office Visit Family Medicine Maikel Caceres, DO [address] [place] [address] [phone] 12/01/2020 Nutrition Services Gastroenterology Melissa Omalley, SAMANTHA [address] [place] [address] [phone] 12/04/2020 Hem/Onc Treatment Hematology Oncology [place], Chair [address] [facility] [address] [phone] 12/14/2020 Office Visit Pharmacy [facility] [address] [place], [place] [address] 12/18/2020 Hem/Onc Treatment Hematology Oncology [place], Chair [address] [facility] [address] [phone] 01/01/2021 Office Visit Hematology Oncology Tono Sanchez MD [address] [place] [address] [phone] 01/21/2021 Office Visit Gastroenterology Lyssa Stout CRNP [address] [facility] [place] [address] [phone] 09/09/2021 Imaging Radiology Health Maintenance Due Date [...] of this encounter Implants Implanted Type Area Cobol Developer Device Identifier Shelf Expiration Date Model / Serial / Lot Microtech Sure Clip Implanted:Qty: 2 on 06/03/2020 by Janis Hatch DO at OR [facility] Clip N/A: Colon 04/21/2022 [facility]-F-26-2 35-C-R / / [id number] documented as of this encounter Advance Directives Documents on File Type Date Recorded Patient Compress Trucker Expl anation Advanced Directive service a kerri [...] [facility] Syed Juli Spouse Emergency Contact
--- OUTSIDE RECORDS SUMMARY | 2023-05-10 21:26 | External Medical Summary | Summary of Care ---
Author Name Unknown Organization [facility] Address [place] [address] Care Team Providers Care Crusher Setter Name Role Phone NikMaikel fernandez Primary Care Provider [phone] Reason for Visit * Reason Comments eRx-Medication Refill Encounter Details Date Type Department Care Team Description 11/28/2020 Refill [place] [address] [place], [place] [id number] Rajwinder Carter DO [address] [place] [address] [phone] Sleep disturbances Allergies Active Allergy Reactions Severity [...] 120 Vial 11 10/02/2019 Active nystatin (NYSTOP) 801539 UNIT/GM powder Apply topically to affected area [...] a day. 60 Each 3 07/27/2020 Active Cyclobenzaprine HCl 10 MG Oral Tablet (FLEXERIL) TAKE 1 TABLET BY MOUTH AT BEDTIME 30 Tab 2 08/12/2020 Active Lantus SoloStar 100 UNIT/ML Subcutaneous Solution Pen-injector (insulin glargine)Indicatio ns:Type 2 diabetes mellitus with hemoglobin A1c goal of less than 7.0% (HCC) Inject 25 units under the skin once a day 30 mL 3 08/31/2020 Active Dexcom G6 Commodities Requirements Analyst Device Use as directed. To test [...] Strip 3 10/29/2020 Active OneTouch Delica Plus [id number] TESTING once daily 100 Each 3 10/29/2020 [...] AT BEDTIME 90 Tab 2 11/30/2020 Active traZODone (DESYREL) 50 MG TabletIndications: Sleep disturbances TAKE 1 TABLET BY MOUTH AT BEDTIME 90 Tab 1 05/21/2020 1 Discontinued documented as of this encounter [...] pain 01/24/2012 01/17/2017 Genetic Sleep Disorder Research Other*[id number] 05/13/2011 04/07/2016 Obstructive sleep apnea 01/18/2011 12/27/19 [...] or bathing? 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-e learning designer helps 07/15/2020 Because of a physical, menta [...] Miscellaneous Notes * Telephone Encounter - Michaelle He RP - 11/30/2020 8:26 AM EDT Signed Prescriptions: Disp Refills traZODone HCl 50 MG Oral Tablet (Desyrel) 90 Tab 2 Sig: TAKE 1 TABLET BY MOUTH AT BEDTIME Authorizing Provider: MAIKEL CACERES User: MICHAELLE HE- documented in this encounter Plan of Treatment Upcoming Encounters Date Type Specialty Care Team Description 11/30/2020 Office Visit Family Medicine Maikel Caceres, DO [address] [place] [address] [phone] 12/01/2020 Nutrition Services Gastroenterology Melissa Omalley, [place] [address] [place] [address] [phone] 12/04/2020 Hem/Onc Treatment Hematology Oncology [place], Chair [address] [place] [address] [phone] 12/14/2020 Office Visit Pharmacy [facility] [address] [place], [place] [address] 12/18/2020 Hem/Onc Treatment Hematology Oncology [place], Chair [address] [facility] [place] [address] [phone] 01/01/2021 Office Visit Hematology Oncology Tono Sanchez MD [address] [facility] [address] [phone] 01/21/2021 Office Visit Gastroenterology Lyssa Stout CRNP [address] [facility] [place] [address] [phone] 09/09/2021 Imaging Radiology Health Maintenance Due Date [...] this encounter Implants Implanted Type Area Superintendent Sales Device Identifier Shelf Expiration Date Model / Serial / Lot Microtech Sure Clip Implanted:Qty: 2 on 06/03/2020 by Janis Hatch DO at OR [facility] Clip N/A: Colon 04/21/2022 [facility]-F-26-2 35-C-R / / [id number] documented as of this encounter Visit Diagnoses Diagnosis Sleep disturbances Sleep disturbance, unspecified documented in this encounter Advance Directives Documents on File Type Date Recorded Patient Debate Director Expl anation Advanced Directive service a [...]
--- OUTSIDE RECORDS SUMMARY | 2023-05-10 21:26 | External Medical Summary | Summary of Care ---
Author Name Unknown Organization [place] [address] Care Team Providers Care Outboard System Operator Name Role Phone NikAlexandra fernandez Daisha MORENO Primary Care Provider [phone] Reason for Visit * Reason Comments Weight Management Dietary couseling Encounter Details Date Type Department Care Team Description 12/01/2020 Nutrition Services Nutrition & Weight Management, [facility] [address] [facility] [place] [address] Melissa Omalley, SAMANTHA [address] [place] [address] [place] [id number] Obesity, Class III, BMI 40-49.9 (morbid obesity) (HCC)*; Severe obesity (BMI >= 40) (HCC); Cirrhosis of liver (HCC); Lymphedema; Body mass index (BMI) of 50-59.9 in adult (HCC) Allergies Active Allergy Reactions Severity Noted Date Comments Adhesive Tape Itching 04/29/2020 Penicillins Rash 02/12/2008 Perflutren Protein A Microsph 2019 Definity-lower back pain documented as of this encounter (statuses as of 12/01/2020) Medications Medication Sig Dispensed Refills Start Date [...] 120 Vial 11 10/02/2019 Active nystatin (NYSTOP) 710352 UNIT/GM powder Apply topically to affected area [...] 30 mL 3 08/31/2020 Active Dexcom G6 Manager Country Device Use as directed. To test blood [...] Strip 3 10/29/2020 Active OneTouch Delica Plus [id number] TESTING once daily 100 Each 3 10/29/2020 [...] as of this encounter (statuses as of 12/01/2020) Active Problems Problem Noted Date Uncontrolled type [...] as of this encounter (statuses as of 12/01/2020) Resolved Problems Problem Noted Date Resolved Date [...] pain 01/24/2012 01/17/2017 Genetic Sleep Disorder Research Other*[id number] 05/13/2011 04/07/2016 Obstructive sleep apnea 01/18/2011 12/27/19 [...] as of this encounter (statuses as of 12/01/2020) Immunizations Name Administration Dates Next Due COVID-19 [...] Reading Time Taken Comments Blood Pressure 126/80 12/01/2020 2:54 PM EDT Pulse 80 12/01/2020 2:54 PM EDT Temperature 36.6 C (97.9 F) 12/01/2020 2:54 PM ED T Respiratory Rate - - [...] or bathing? 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-shirring tender helps 07/15/2020 Because of a physical, menta [...] No 07/15/2020 documented as of this encounter Patient Instructions * Patient Instructions* Melissa Omalley RDN - 12/01/2020 3:34 PM EDT PATIENT GOALS: 1. Minimize/Avoid simple [...] Progress Notes * Melissa Omalley RDN - 12/01/2020 3:12 PM EDT WEIGHT MANAGEMENT FOLLOW UP [facility] Patient was identified at visit by [...] 07/16/2020. Wt Readings from Last 20 Encounters: 09/24/20 119.7 kg (264 lb) 08/07/20 119.7 [...] (256 lb) 05/13/20 113.4 kg (250 lb) 05/05/20 117.1 kg (258 lb 2.5 oz) 05/04/20 114.8 kg (253 lb) 04/29/20 114.8 kg (253 lb) 04/25/20 114.6 kg (252 lb 10.4 oz) 04/15/20 114.9 kg (253 lb 3.2 oz) 03/30/20 113.4 kg (250 lb) Describes typical diet history/24 hr recall Breakfast: Oatmeal, egg or waffles Sausage or lam Lunch: Soup or a Ringold ( tuna Fish Ringold) Or Roast Dinner: Depends, Spaghetti, Pearblossom or Breaded vegetable Bananas and grapes Dietary recall reveals: Large portions Inadequate fruit and vegetable intake Drinks: 48-64 ounces of fluid a day MNT: Calorie Controlled Diet LABS: Component Latest Ref Rng & Units 11/30/2020 Hemoglobin A1C 4.0 - 5.6 % 6.9 (H) Estimated Average Glucose <126 mg/dL 151 (H) Component Latest Ref Rng & Units 11/19/2020 BUN 6 - 20 mg/dL 10 Creatinine 0.5 - 1.0 mg/dL 0.6 Estimated Glomerular Filtration Rate >=60.0 mL/min >90.0 Sodium 135 - 146 mmol/L 144 Potassium 3.5 - 5.1 mmol/L 3.9 Chloride 98 - 107 mmol/L 108 (H) CO2 22 - 32 mmol/L 28 Anion Gap 7 - 15 mmol/L 8 Glucose 70 - 120 mg/dL 93 Albumin 3.8 - 5.0 g/dL 3.5 (L) AST 10 - 35 U/L 36 (H) Alkaline Phosphatase 35 - 130 U/L 142 (H) Bilirubin, Total <=1.2 mg/dL 0.7 Calcium 8.4 - 10.2 mg/dL 8.9 Protein 6.0 - 8.3 g/dL 6.7 ALT 10 - 35 U/L 19 Component Latest Ref Rng & Units 11/19/2020 WBC 4.00 - 10.80 K/uL 3.22 (L) Neutrophils % 40.0 - 75.0 % 57.9 Lymphocytes % 18.0 - 42.0 % 24.8 Monocytes % 1.0 - 11.0 % 9.6 Eosinophils % 0.0 - 6.0 % 6.5 (H) Basophils % 0.0 - 2.0 % 0.9 Immature Granulocyte % 0.0 - 2.0 % 0.3 Absolute Neutrophils 1.80 - 7.70 K/uL 1.86 Absolute Lymphocytes 1.00 - 4.80 K/ul 0.80 (L) Absolute Monocytes 0.00 - 1.10 K/uL 0.31 Absolute Eosinophils 0.00 - 0.70 K/uL 0.21 Absolute Basophils 0.00 - 0.20 K/uL 0.03 Absolute Immature Granulocytes 0.00 - 0.20 K/uL 0.01 WBC 4.00 - 10.80 K/uL 3.22 (L) RBC 3.85 - 5.15 M/uL 2.95 (L) HGB 12.0 - 15.3 g/dL 7.6 (L) HCT 36.0 - 45.2 % 27.4 (L) MCV 81.5 - 97.5 fL 92.9 MCH 27.0 - 34.0 pg 25.8 (L) MCHC 32.0 - 36.0 g/dL 27.7 (L) RDW 11.5 - 15.5 % 22.1 (H) MPV Nucleated RBC <=0 /100 WBCs 0 Plt 140 - 400 K/uL 93 (L) NUTRITION DIAGNOSIS Food and nutrition related knowledge [...] Follow up in 3 months with dietitian. 20 Minute Return Face to Face Visit Melissa Omalley RDN, LDN documented in this encounter Nursing Notes * Fatuma Hernandez LPN - 12/01/2020 2:53 PM EDT Pt verified identity by last name and date. Chief Complaint Patient presents with Weight Management Dietary couseling documented in this encounter Plan of Treatment Upcoming Encounters Date Type Specialty Care Team Description 12/03/2020 Office Visit Pulmonary Mabel [facility]ifuentes [facility] [address] [facility] [address] [phone] 12/04/2020 Hem/Onc Treatment Hematology Oncology [place], Chair [address] [place] [address] [phone] 12/14/2020 Office Visit Pharmacy [facility] [address] [place], [place] [id number] 12/18/2020 Hem/Onc Treatment Hematology Oncology [place], Chair 7 Hem On[address] [place] [address] [phone] 01/01/2021 Office Visit Hematology Oncology [facility] [address] [phone] 01/21/2021 Office Visit Gastroenterology Lyssa Stout, COMPUTER ANALYST [facility] [place] [address] [phone] 03/03/2021 Nutrition Services Gastroenterology Melissa Omalley, RDN [address] [place] [address] [phone] 03/04/2021 Office Visit Family Medicine Alexandra Caceres, DO [address] [facility] [id number] 09/09/2021 Imaging Radiology Health Maintenance Due Date [...] of this encounter Implants Implanted Type Area Traveling Representative Device Identifier Shelf Expiration Date Model / Serial / Lot Microtech Sure Clip Implanted:Qty: 2 on 06/03/2020 by Janis Hatch DO at OR [facility] Clip N/A: Colon 04/21/2022 [facility]-F-26-2 35-C-R / / [id number] documented as of this encounter Visit Diagnoses Diagnosis Obesity, Class III, BMI 40-49.9 (morbid obesity) (HCC)- Primary Morbid obesity Severe obesity (BMI >= 40) (HCC) Morbid obesity Cirrhosis of liver (HCC) Cirrhosis of liver without mention of alcohol Lymphedema Other lymphedema Body mass index (BMI) of 50-59.9 in adult (HCC) Body Mass Index 50.0-59.9, adult documented in this encounter Advance Directives Documents on File Type Date Recorded Patient Hemodialysis Rn Expl anation Advanced Directive service a kerri [...]
--- OUTSIDE RECORDS SUMMARY | 2023-05-10 21:27 | External Medical Summary | Summary of Care ---
Author Name Unknown Organization [place] [address] Care Team Providers Care Community Associate Name Role Phone Alexandra Caceres DO Primary Care Provider [phone] Reason for Visit * Reason Comments Immunizations Abstracted #1 COVID Moderna Encounter Details Date Type Department Care Team Description 11/24/2020 Abstract [place] [address] [place], [place] [id number] Alexandra Caceres DO [address] [place] [address] [phone] Allergies Active Allergy Reactions Severity Noted Date Comments Adhesive Tape Itching 04/29/2020 Penicillins Rash 02/12/2008 Perflutren Protein A Microsph 2019 Definity-lower back pain documented as of this encounter (statuses as of 11/24/2020) Medications Medication Sig Dispensed Refills Start Date [...] 120 Vial 11 10/02/2019 Active nystatin (NYSTOP) 127104 UNIT/GM powder Apply topically to affected area [...] per day. 1 Kit 0 11/19/2019 Active linaCLOtide (LINZESS) 290 MCG Capsule Take 1 Cap by mouth daily before breakfast. 90 Cap 3 05/04/2020 Active escitalopram (LEXAPRO) 20 MG TabletIndications:Re current major depressive disorder, in partial remission (HCC) TAKE 1 TABLET BY MOUTH ONCE DAILY 90 Tab 1 05/21/2020 Active traZODone (DESYREL) 50 MG TabletIndications:Sl eep disturbances TAKE 1 TABLET BY MOUTH AT BEDTIME 90 Tab 1 05/21/2020 Active potassium chloride [...] 30 mL 3 08/31/2020 Active Dexcom G6 Insole Filler Device Use as directed. To test blood [...] Strip 3 10/29/2020 Active OneTouch Delica Plus [id number] TESTING once daily 100 Each 3 10/29/2020 [...] before supper 90 mL 3 11/02/2020 Active Doxycycline Hyclate 100 MG Oral CapsuleIndications:P neumonia of right lower lobe due to infectious organism Take 1 Cap by mouth 2 times a day for 10 days. Until gone. 20 Cap 0 11/18/2020 11/28/2020 Active documented as of this encounter (statuses as of 11/24/2020) Active Problems Problem Noted Date Uncontrolled type [...] as of this encounter (statuses as of 11/24/2020) Resolved Problems Problem Noted Date Resolved Date [...] pain 01/24/2012 01/17/2017 Genetic Sleep Disorder Research Other*[id number] 05/13/2011 04/07/2016 Obstructive sleep apnea 01/18/2011 12/27/19 [...] as of this encounter (statuses as of 11/24/2020) Immunizations Name Administration Dates Next Due COVID-19 [...] or bathing? 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-gang plank workman helps 07/15/2020 Because of a physical, menta [...] as of this encounter Progress Notes * Michaelle Lindquist LPN - 11/24/2020 7:50 AM EDT Pt received #1 ISIAH Eric at [facility]. Fim's. documented in this encounter Plan of Treatment Upcoming Encounters Date Type Specialty Care Team Description 11/30/2020 Office Visit Family Medicine Alexandra Caceres DO [address] [place] [address] [phone] 12/01/2020 Nutrition Services Gastroenterology Melissa Omalley RDN [address] [place] [address] [phone] 12/04/2020 Hem/Onc Treatment Hematology Oncology [place], Chair 8 Hem Onc Scenery [address] [facility] [place] [address] [phone] 12/14/2020 Office Visit [address] [place] [address] [phone] 12/18/2020 Hem/Onc Treatment Hematology Oncology [place], Chair 7 Hem Onc Scenery [address] [facility] [place] [address] [phone] 01/01/2021 Office Visit Hematology Oncology Tono Sanchez MD 200 [facility], [place] [address] [phone] 01/21/2021 Office Visit Gastroenterology Lyssa Stout CRNP [facility] [address] [phone] 09/09/2021 Imaging Radiology Health Maintenance Due Date [...] of this encounter Implants Implanted Type Area Technical Sales Representative Device Identifier Shelf Expiration Date Model / Serial / Lot Microtech Sure Clip Implanted:Qty: 2 on 06/03/2020 by Janis Hatch DO at OR [facility] Clip N/A: Colon 04/21/2022 [facility]-F-26-2 35-C-R / / [id number] documented as of this encounter Advance Directives Documents on File Type Date Recorded Patient Contracts Manager Expl anation Advanced Directive service a [...] Code 08/05/2020 1:01 PM 08/05/2020 2:38 PM Th is order reflects the patients [...]
--- OUTSIDE RECORDS SUMMARY | 2023-05-10 21:27 | External Medical Summary | Summary of Care ---
Author Name Unknown Organization [place] [address] Care Team Providers Care Film Casting Operator Name Role Phone Alexandra Caceres DO Primary Care Provider [phone] Reason for Visit * Reason Comments Immunizations Abstracted #1 COVID Moderna Encounter Details Date Type Department Care Team Description 11/24/2020 Abstract [place] [address] [place], [place] [id number] Alexandra Caceres DO [address] [place] [address] [phone] Allergies Active Allergy Reactions Severity Noted Date [...] 120 Vial 11 10/02/2019 Active nystatin (NYSTOP) 841764 UNIT/GM powder Apply topically to affected area [...] 30 mL 3 08/31/2020 Active Dexcom G6 Flour Mixer Device Use as directed. To test [...] Strip 3 10/29/2020 Active OneTouch Delica Plus [id number] TESTING once daily 100 Each 3 10/29/2020 [...] pain 01/24/2012 01/17/2017 Genetic Sleep Disorder Research Other*[id number] 05/13/2011 04/07/2016 Obstructive sleep apnea 01/18/2011 12/27/19 [...] or bathing? 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-programmer analyst helps 07/15/2020 Because of a physical, menta [...] 11/24/2020 7:50 AM EDT Pt received #1 ISAIH Eric at [facility]. Fim's. documented in this encounter Plan of Treatment Upcoming Encounters Date Type Specialty Care Team Description 11/30/2020 Office Visit Family Medicine Alexandra Caceres DO [address] [place] [address] [phone] 12/01/2020 Nutrition Services Gastroenterology Melissa Omalley RDN [address] [place] [address] [phone] 12/04/2020 Hem/Onc Treatment Hematology Oncology [place], Chair 8 Hem Onc Scenery [address] [facility] [place] [address] [phone] 12/14/2020 Office Visit [address] [place] [address] [phone] 12/18/2020 Hem/Onc Treatment Hematology Oncology [place], Chair 7 Hem Onc Scenery [address] [facility] [place] [address] [phone] 01/01/2021 Office Visit Hematology Oncology Tono Sanchez MD 200 [facility], [place] [address] [phone] 01/21/2021 Office Visit Gastroenterology Lyssa Stout CRNP [address] [facility] [address] [phone] 09/09/2021 Imaging Radiology Health Maintenance Due Date [...] of this encounter Implants Implanted Type Area Mold Shaker Device Identifier Shelf Expiration Date Model / Serial / Lot Microtech Sure Clip Implanted:Qty: 2 on 06/03/2020 by Janis Hatch DO at OR [facility] Clip N/A: Colon 04/21/2022 [facility]-F-26-2 35-C-R / / [id number] documented as of this encounter Advance Directives Documents on File Type Date Recorded Patient Presser Cotton Ginning Expl anation Advanced Directive service a kerri [...]
--- OUTSIDE RECORDS SUMMARY | 2023-05-10 21:28 | External Medical Summary ---
Author Name Unknown Address Unknown Organization [id number]:[facility] [place] [address] [place] [address] Laboratory Report Ordering Provider Test Date Status ECTOR LOCK 11/19/2020 22:05:21 Final Observation Date Value Abnormality Reference (Units ) Status BUN 11/19/2020 22:05:21 10 6-20 (mg/dL) Final Creatinine 11/19/2020 22:05:21 0.6 0.5-1.0 (mg/dL) Final Glomerular filtration rate/1.73 sq M.predicted [Volume Rate/Area] in Serum, Plasma or Blood by Creatinine-based formula (CKD-EPI) 11/19/2020 22:05:21 >90.0 >=60.0 (mL/min) Final Performing Location [facility] [place] [address] [place] [address]
--- OUTSIDE RECORDS SUMMARY | 2023-05-10 21:28 | External Medical Summary ---
Author Name Unknown Address Unknown Organization [id number][place] [place] [address] [place] [address] Laboratory Report Ordering Provider Test Date Status ECTOR LOCK 11/19/2020 22:05:19 Final Observation Date Value Abnormality Reference (Units ) Status WBC, Total 11/19/2020 22:05:19 3.22 Below low normal 4. 00-10.80 (K/uL) Final RBC 11/19/2020 22:05:19 2.95 Below low normal 3.8 5-5.15 (M/uL) Final Hemoglobin 11/19/2020 22:05:19 7.6 Below low normal 12 .0-15.3 (g/dL) Final HCT 11/19/2020 22:05:19 27.4 Below low normal 36. 0-45.2 (%) Final MCV 11/19/2020 22:05:19 92.9 81.5-97.5 (fL) Final MCH 11/19/2020 22:05:19 25.8 Below low normal 27. 0-34.0 (pg) Final MCHC 11/19/2020 22:05:19 27.7 Below low normal 32. 0-36.0 (g/dL) Final RDW 11/19/2020 22:05:19 22.1 Above high normal 11 .5-15.5 (%) Final MPV 11/19/2020 22:05:19 Final Performing Location [facility] [place] [address] [place] [address]
--- OUTSIDE RECORDS SUMMARY | 2023-05-10 21:28 | External Medical Summary | Summary of Care ---
Author Name Unknown Organization [place] [address] Care Team Providers Care Sand Molder Name Role Phone Alexandra Caceres Primary Care Provider Reason for Visit * Reason Onset Date Comments Appointment 11/20/2020 Encounter Details Date Type Department Care Team Description 11/20/2020 Telephone Hematology/Oncology Treatment, [address] [address] Tono Sanchez MD [address] [place] [address] [phone] Appointment Allergies Active Allergy Reactions Severity Noted Date Comments Adhesive Tape Itching 04/29/2020 Penicillins Rash 02/12/2008 Perflutren Protein A Microsph 2019 Definity-lower back pain documented as of this encounter (statuses as of 11/20/2020) Medications Medication Sig Dispensed Refills Start Date [...] 120 Vial 11 10/02/2019 Active nystatin (NYSTOP) 964264 UNIT/GM powder Apply topically to affected area [...] 30 mL 3 08/31/2020 Active Dexcom G6 Rn Infusion Device Use as directed. To test blood [...] Strip 3 10/29/2020 Active OneTouch Delica Plus [id number] TESTING once daily 100 Each 3 10/29/2020 [...] as of this encounter (statuses as of 11/20/2020) Active Problems Problem Noted Date Uncontrolled type [...] as of this encounter (statuses as of 11/20/2020) Resolved Problems Problem Noted Date Resolved Date [...] pain 01/24/2012 01/17/2017 Genetic Sleep Disorder Research Other*[id number] 05/13/2011 04/07/2016 Obstructive sleep apnea 01/18/2011 12/27/19 [...] as of this encounter (statuses as of 11/20/2020) Immunizations Name Administration Dates Next Due HEP A - Hepatitis A (Adult > [...] or bathing? 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-molasses feed mixer helps 07/15/2020 Because of a physical, menta [...] Telephone Encounter - Francine Okeefe RN - 11/20/2020 1:55 PM EST Called patient's home phone, Rajwinder answered phone and stated they should be here. Explained I was not sure if she would be coming as she was in the ED yesterday. documented in this encounter Plan of Treatment Upcoming Encounters Date Type Specialty Care Team Description 11/30/2020 Office Visit Family Medicine Alexandra Caceres, [address] [place] [address] 12/01/2020 Nutrition Services Gastroenterology Melissa Omalley RDN [address] [place] [address] 12/04/2020 Hem/Onc Treatment Hematology Oncology [place], Chair 8 Hem Onc Scenery 200 [facility] [place], [place] [address] [phone] 12/14/2020 Office Visit [address] [place] [address] [phone] 12/18/2020 Hem/Onc Treatment Hematology Oncology [place], Chair 7 Hem Onc Scenery 200 [facility] [place], [place] [address] [phone] 01/01/2021 Office Visit Hematology Oncology Tono Sanchez MD 200 [facility], [place] [address] [phone] 01/21/2021 Office Visit Gastroenterology Lyssa Stout CRNP [address] [facility] [address] [phone] 09/09/2021 Imaging Radiology Health Maintenance Due Date [...] 11/06/2019, 0 01/09/2019, 12/26/2017, Additional history exists DIABETES-HGBA1C EVERY 6 MONTHS 01/04/2021 07/06/2020, 05/26/2020, 04/28/2020, Additional history exists Yearly B-12 07/14/2021 07/14/2020, 04/11, 02/21/2020, Additional history exists BREAST CANCER SCREENING DISCUSSION YEARLY AGES 40-75 09/08/2021 09/08/2020, 09/02/2019, 04/04/2018, Additional history exists COLONOSCOPY-EVERY 5 YRS AGES 18-100 06/03/2025 06/03/2020, 06/03/2020, 03/17/2020, Additional history exists DTaP,Tdap,and Td Vaccines (3 - Td) 05/01/2027 05/01/2017, 05/26/2008 Influenza Vaccine (FLU shot) Completed , 06/05/2019, 06/05/2019, Additional history exists MENINGOCOCCAL (MENACTRA/MENVEO) Aged Out No longer eligible based on patient's age to complete this topic documented as of this encounter Implants Implanted Type Area Test Desk Trouble Locator Device Identifier Shelf Expiration Date Model / Serial / Lot Microtech Sure Clip Implanted:Qty: 2 on 06/03/2020 by Janis Hatch DO at OR [facility] Clip N/A: Colon 04/21/2022 [facility]-F-26-2 35-C-R / / [id number] documented as of this encounter Advance Directives Documents on File Type Date Recorded 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
--- OUTSIDE RECORDS SUMMARY | 2023-05-10 21:28 | External Medical Summary ---
Author Name Unknown Address Unknown Organization K01:[facility] [place] [address] [place] [address] Laboratory Report Ordering Provider Test Date Status DIANE LOCKSTEVE 11/19/2020 22:05:21 Final Observation Date Value Abnormality Reference (Units ) Status Troponin T 11/19/2020 22:05:21 10 <=14 (ng/ L) Final Performing Location [facility] [place] [address] [facility] [address]
--- OUTSIDE RECORDS SUMMARY | 2023-05-10 21:28 | External Medical Summary ---
Author Name Unknown Address Unknown Organization K01:[facility] [place] [address] [place] [address] Laboratory Report Ordering Provider Test Date Status [facility] SPENCEDarrell 11/20/2020 00:03:07 Final Observation Date Value Abnormality Reference (Units ) Status Troponin T 11/20/2020 00:03:07 10 <=14 (ng/ L) Final Performing Location LABORATORY [facility] - [address] [place] [address]
--- OUTSIDE RECORDS SUMMARY | 2023-05-10 21:28 | External Medical Summary ---
Author Name Unknown Address Unknown Organization K01:[facility] [place] [address] [facility] [place] [address] Laboratory Report Ordering Provider Test Date Status ECTOR LOCK 11/19/2020 22:05:19 Final Observation Date Value Abnormality Reference (Units ) Status SYNC LEUKOCYTES IN BLOOD BY AUTOMATED COUNT 11/19/2020 22:05:19 3.22 Below low normal 4.00-10.80 (K/uL) Final Segs 11/19/2020 22:05:19 57.9 40.0-75.0 (%) Final Lymphs % 11/19/2020 22:05:19 24.8 18.0-42.0 (%) Final Monos 11/19/2020 22:05:19 9.6 1.0-11.0 (%) Final Eosinophils 11/19/2020 22:05:19 6.5 Above high normal 0.0-6.0 (%) Final Basos 11/19/2020 22:05:19 0.9 0.0-2.0 (%) Final Immature Granulocyte, Percent 11/19/2020 22:05:19 0.3 0.0-2.0 (%) Final Absolute Segs 11/19/2020 22:05:19 1.86 1.80-7.70 (K/uL) Final Lymphs, absolute 11/19/2020 22:05:19 0.80 Below low normal 1.00-4.80 (K/ul) Final Monos, Abs 11/19/2020 22:05:19 0.31 0.00-1.10 (K/uL) Final Eos, Abs 11/19/2020 22:05:19 0.21 0.00-0.70 (K/uL) Final Basos, Abs 11/19/2020 22:05:19 0.03 0.00-0.20 (K/uL) Final Immature Granulocytes, Number 11/19/2020 22:05:19 0.01 0.00-0.20 (K/uL) Final Performing Location [facility] [place] - [facility] [place] [address] [facility] [address]
--- OUTSIDE RECORDS SUMMARY | 2023-05-10 21:28 | External Medical Summary | Summary of Care ---
Author Name Unknown Organization [place] [address] Care Team Providers Care Risk And Insurance Manager Name Role Phone Alexandra Caceres Primary Care Provider [phone] Reason for Visit * Reason Onset Date Comments COVID-19 Screening 11/20/2020 Encounter Details Date Type Department Care Team Description 11/20/2020 Telephone COVID19 Screening [facility] [address] [place] [address] [phone], Automated Provider COVID-19 Screening Allergies Active Allergy Reactions Severity Noted Date Comments Adhesive Tape Itching 04/29/2020 Penicillins Rash 02/12/2008 Perflutren Protein A Microsph 2019 Definity-lower back pain documented as of this encounter (statuses as of 11/21/2020) Medications Medication Sig Dispensed Refills Start Date [...] 120 Vial 11 10/02/2019 Active nystatin (NYSTOP) 082205 UNIT/GM powder Apply topically to affected area [...] 30 mL 3 08/31/2020 Active Dexcom G6 Plate Fitter Device Use as directed. To test [...] Strip 3 10/29/2020 Active OneTouch Delica Plus [id number] TESTING once daily 100 Each 3 10/29/2020 [...] as of this encounter (statuses as of 11/21/2020) Active Problems Problem Noted Date Uncontrolled type 2 diabetes mellitus wi th hyperglycemia 07/15/2020 Acute blood loss anemia 07/06/2020 Esophagitis 07/06/2020 Esophageal varices 07/06/2020 Bacteremia 07/04/2020 Diabetic ulcer of right great toe 2019 Cellulitis of right toe 04/18/2020 Cellulitis of right lower extremity 0801/2020 Iron deficiency anemia due to chronic bl [...] as of this encounter (statuses as of 11/21/2020) Resolved Problems Problem Noted Date Resolved Date [...] pain 01/24/2012 01/17/2017 Genetic Sleep Disorder Research Other*[id number] 05/13/2011 04/07/2016 Obstructive sleep apnea 01/18/2011 12/27/19 [...] as of this encounter (statuses as of 11/21/2020) Immunizations Name Administration Dates Next Due HEP [...] or bathing? 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-children's author helps 07/15/2020 Because of a physical, menta [...] encounter Miscellaneous Notes * Telephone Encounter - Asha Poonid Results - 11/21/2020 1:02 PM EST Outreach Attempts IVR Call Nov 20 2020 9:25AM Answered - Success Results COVID: Negative Flu: Negative RSV: Negative IVR Message: Cecy Merritt. Your tests from 11/19/2020 00:00:00 for COVID-19, Flu, and RSV all came back negative.This means you are NOT infected with any of these viruses. If your cold/flu symptoms last longer than 7 days or get worse, contact your primary care physician. If you don't have a primary care physician, go to the nearest [facility] or urgent care clinic. To establish care with a [facility] provider, please call [phone]. Practice social distancing and good hand hygiene to keep yourself and others safe. Your results are also available for your reference in your [employer] account under 'Test & Lab Results.' If you are not enrolled in [employer], you can create an account by going to [email or web address]. You will also receive a letter in the mail with your results. If you are a [employer] staff member or employee, when you receive your result, please call [facility] between 7 a.m. and 4 p.m. at [phone]. Notify them of your test results and for instructions on returning to work after your quarantine period. Press 1 if you would like to speak with a nurse, press 2 to hear this message again. documented in this encounter Plan of Treatment Upcoming Encounters Date Type Specialty Care Team Description 11/30/2020 Office Visit Family Medicine Alexandra Caceres, DO [address] [place] [address] 12/01/2020 Nutrition Services Gastroenterology Melissa Omalley RDN [address] [place] [address] [phone] 12/04/2020 Hem/Onc Treatment Hematology Oncology [place], Chair [address] Hem Onc [address]ery [address] [place] [address] [place] [address] [phone] 12/14/2020 Office Visit Pharmacy [facility] [address] [place], [place] [id number] 12/18/2020 Hem/Onc Treatment Hematology Oncology [place], Chair 7 Hem Onc Scenery 200 [place] [address] [phone] 01/01/2021 Office Visit Hematology Oncology Tono Sanchez MD 200 [facility] [place] [id number] 01/21/2021 Office Visit Gastroenterology Lyssa Stout CRNP [address] [facility] [place] [address] [phone] 09/09/2021 Imaging Radiology Health Maintenance Due Date [...] of this encounter Implants Implanted Type Area Tenter Device Identifier Shelf Expiration Date Model / Serial / Lot Microtech Sure Clip Implanted:Qty: 2 on 06/03/2020 by Janis Hatch DO at OR [facility] Clip N/A: Colon 04/21/2022 [facility]-F-26-2 35-C-R / / [id number] documented as of this encounter Advance Directives Documents on File Type Date Recorded Patient Early Childhood Expl anation Advanced Directive service a kerri [...] File Name Relationship Healthcare Agent [facility] Communication Syed Bustos Spouse Emergency Contact
--- OUTSIDE RECORDS SUMMARY | 2023-05-10 21:28 | External Medical Summary | Summary of Care ---
Author Name Unknown Organization [facility] [place] [address] Care Team Providers Care Outbound Sales Representative Name Role Phone Nicki Alexandra Daisha MORENO Primary Care Provider [phone] Reason for Visit * Reason Comments IV Therapy Venofer Encounter Details Date Type Department Care Team Description 11/20/2020 Hem/Onc Treatment Hematology/Oncology [place], [place] [address] [place] [address] [place], Chair 1 Hem Onc Sc[address] [place] [address] [phone] Iron deficiency anemia due to chronic blood [...] 120 Vial 11 10/02/2019 Active nystatin (NYSTOP) 347917 UNIT/GM powder Apply topically to affected area [...] less than 7.0% ([facility]) Use to inject insulin four times daily; [...] 30 mL 3 08/31/2020 Active Dexcom G6 Catalytic Case Operator Device Use as directed. To test [...] Strip 3 10/29/2020 Active OneTouch Delica Plus Pecuer10J TESTING once daily 100 Each 3 10/29/2020 [...] pain 01/24/2012 01/17/2017 Genetic Sleep Disorder Research Other*[id number] 05/13/2011 04/07/2016 Obstructive sleep apnea 01/18/2011 12/27/19 [...] or bathing? 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-automation and controls supervisor helps 07/15/2020 Because of a physical, menta [...] Nursing Notes * Francine Okeefe RN - 11/20/2020 4:01 PM EST Goals: Patient will remain free from injury. Possible barriers to meeting goals: patient at risk for falls, wheelchair bound Stability of the patient: Unstable - high likelihood or risk of patient condition declining or worsening Summary regarding today's goals: Met: pt remained free from injury Pt discharged in personal wheelchair with . * Francine Okeefe RN - 11/20/2020 2:49 PM EST Chair 10 Pt presents to the clinic today for IV venofer. CVAD accessed, positive blood return noted. No issues, NS infusion started. Safety and Risk for Injury Patient will remain free from injury. Ensure appropriate safety devices are available. Provide and maintain safe environment. documented in this encounter Plan of Treatment Upcoming Encounters Date Type Specialty Care Team Description 11/30/2020 Office Visit Family Medicine Alexandra Caceres, DO [address] [place] [address] [phone] 12/01/2020 Nutrition Services Gastroenterology Melissa Omalley, [place] [address] [facility] [place] [address] [phone] 12/04/2020 Hem/Onc Treatment Hematology Oncology [place], Chair 8 Hem Onc Scenery [address] [facility] [place] [address] [phone] 12/14/2020 Office Visit Pharmacy [facility] [address] [place], [place] [phone] 12/18/2020 Hem/Onc Treatment Hematology Oncology [place], Chair 7 Hem Onc Scenery [address] [facility] [place] [address] [phone] 01/01/2021 Office Visit Hematology Oncology Tono Sanchez MD 200 [place] [address] [phone] 01/21/2021 Office Visit Gastroenterology Lyssa Stout CRNP [address] [place] [address] [phone] 09/09/2021 Imaging Radiology Health Maintenance Due Date [...] of this encounter Implants Implanted Type Area Education Nurse Device Identifier Shelf Expiration Date Model / Serial / Lot Microtech Sure Clip Implanted:Qty: 2 on 06/03/2020 by Janis Hatch DO at OR [facility] Clip N/A: Colon 04/21/2022 [facility]-F-26-2 35-C-R / / [id number] documented as of this encounter Visit Diagnoses [...] Push, ONCE PRN Other, Hypersensitivity Reaction, Starting 11/20/20 at 1415, Until 11/21/20 at 1414, For 24 hours EPINEPHrine 1 MG/ML inj 0.3 mg 0.3 mg, Intramuscular, ONCE PRN Other, Hypersensitivity Reaction or Anaphylaxis, Starting 11/20/20 at 1415, Until 11/21/20 at 1414, For 24 hours hEParin 100 UNIT/ML Lock Flush inj 500 Units 500 Units (5 mL), IV Lock, PRN Other, IV Flush, Starting 11/20/20 at 1415, Until 11/21/20 at 1414, For 24 hours, Do not flush if lock, PICC, or central line not in place; IV infusing or unable to flush., Given 11/20/2020 3:51 PM EST 500 Units Hydrocortisone Na Succinate PF (Solu-Cortef) inj 100 mg 100 mg, IV Push, ONCE PRN Other, Hypersensitivity Reaction, Starting Mon11/20/20 at 1415, Until 11/21/20 at 1414, For 24 hours NSS infusion 500 mL, Intravenous, at 50 mL/hr, CONTINUOUS, Starting Mon11/20/20 at 1515, Until 11/21/20 at 0114 Start Infusion 11/20/2020 2:18 PM EST 500 mL 50 mL/hr sodium chloride 0.9% flush/inj 10 mL 10 mL, IV Push, PRN Other, IV Flush, Starting Mon11/20/20 at 1415, Until 11/21/20 at 1414, For 24 hours, Do not flush if lock, PICC, or central line not in place; IV infusing or unable to flush., Given 11/20/2020 3:51 PM EST 10 mL Inactive Administered Medications - up to 3 most recent administrations Medication Order MAR Action Action Date Dose Rate Site Iron Sucrose (Venofer) 300 mg in NSS 250 mL ivpb 300 mg, IV Piggyback, ONCE, 1 dose, Mon11/20/20 at 1545, Administer over 90 Minutes Start Infusion 11/20/2020 2:18 PM EST 300 mg 166.67 mL/hr documented in this encounter Advance Directives Documents on File Type Date Recorded 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
--- OUTSIDE RECORDS SUMMARY | 2023-05-10 21:28 | External Medical Summary ---
Author Name Unknown Address Unknown Organization K01:[facility] [place] [address] [facility] [place] [address] Laboratory Report Ordering Provider Test Date Status ECTOR LOCK 11/19/2020 21:16:40 Final Observation Date Value Abnormality Reference (Units ) Status Adenovirus DNA [Presence] in Nasopharynx by JANY with non-probe detection 11/19/2020 21:16:40 Negative Negative Final Human coronavirus 229E RNA [Presence] in Nasopharynx by JANY with non-probe detection 11/19/2020 21:16:40 Negative Negative Final Human coronavirus HKU1 RNA [Presence] in Nasopharynx by Target amplification with non-probe based detection 11/19/2020 21:16:40 Negative Negative Final Human coronavirus NL63 RNA [Presence] in Nasopharynx by JANY with non-probe detection 11/19/2020 21:16:40 Negative Negative Final Human coronavirus OC43 RNA [Presence] in Nasopharynx by Target amplification with non-probe based detection 11/19/2020 21:16:40 Negative Negative Final SARS coronavirus 2 RNA [Presence] in Nasopharynx by JANY with non-probe detection 11/19/2020 21:16:40 Negative Negative Final Human metapneumovirus RNA [Presence] in Nasopharynx by JANY with non-probe detection 11/19/2020 21:16:40 Negative Negative Final Rhinovirus+Enterovirus RNA [Presence] in Nasopharynx by Target amplification with non-probe based detection 11/19/2020 21:16:40 Negative Negative Final Influenza virus A RNA [Presence] in Nasopharynx by JANY with non-probe detection 11/19/2020 21:16:40 Negative Negative Final Influenza virus B RNA [Presence] in Nasopharynx by JANY with non-probe detection 11/19/2020 21:16:40 Negative Negative Final Parainfluenza virus 1 RNA [Presence] in Nasopharynx by Target amplification with non-probe based detection 11/19/2020 21:16:40 Negative Negative Final Parainfluenza virus 2 RNA [Presence] in Nasopharynx by JANY with non-probe detection 11/19/2020 21:16:40 Negative Negative Final Parainfluenza virus 3 RNA [Presence] in Nasopharynx by Target amplification with non-probe based detection 11/19/2020 21:16:40 Negative Negative Final Parainfluenza virus 4 RNA [Presence] in Nasopharynx by Target amplification with non-probe based detection 11/19/2020 21:16:40 Negative Negative Final Respiratory syncytial virus RNA [Presence] in Nasopharynx by JANY with non-probe detection 11/19/2020 21:16:40 Negative Negative Final Bordetella pertussis toxin promoter region [Presence] in Nasopharynx by Target amplification with non-probe based detection 11/19/2020 21:16:40 Negative Negative Final Chlamydophila pneumoniae DNA [Presence] in Nasopharynx by JANY with non-probe detection 11/19/2020 21:16:40 Negative Negative Final Mycoplasma pneumoniae DNA [Presence] in Nasopharynx by Target amplification with non-probe based detection 11/19/2020 21:16:40 Negative Negative Final Bordetella parapertussis [id number] DNA [Presence] in Nasopharynx by JANY with non-probe detection 11/19/2020 21:16:40 Negative Negative Final Performing Location [facility] [place] [address] [facility] [address]
--- OUTSIDE RECORDS SUMMARY | 2023-05-10 21:29 | External Medical Summary | Summary of Care ---
Author Name Unknown Organization [facility] Address [place] [address] Care Team Providers Care Latin American Studies Professor Name Role Phone Alexandra Caceres Primary Care Provider Reason for Visit * Reason Comments Urinary Tract Infection Symptoms urinati ng little at a time Other deep ratling in her chest Loss of Appetite Encounter Details Date Type Department Care Team Description 11/13/2020 Office Visit [facility] [address] [place] [address] Vanita Dunn MD [address] [place] [address] [phone] Fever, unspecified fever cause*; Polyuria Allergies Active Allergy Reactions Severity Noted Date Comments Adhesive Tape Itching 04/29/2020 Penicillins Rash 02/12/2008 Perflutren Protein A Microsph 2019 Definity-lower back pain documented as of this encounter (statuses as of 11/17/2020) Medications Medication Sig Dispensed Refills Start Date [...] 120 Vial 11 10/02/2019 Active nystatin (NYSTOP) 255332 UNIT/GM powder Apply topically to affected area [...] 30 mL 3 08/31/2020 Active Dexcom G6 Adjudication Specialist Device Use as directed. To test [...] TO ACCESSING. 30 g 3 10/09/2020 Active [employer] In Vitro Strip (Glucose Blood) TESTING once daily 100 Strip 3 10/29/2020 Active OneTouch Delica Plus [id number] TESTING once daily 100 Each 3 10/29/2020 [...] before supper 90 mL 3 11/02/2020 Active Ciprofloxacin HCl 500 MG Oral Tablet (Cipro)Indications:F ever, unspecified fever cause,Polyuria Take 1 Tab by mouth 2 times a day for 7 days. 14 Tab 0 11/13/2020 11/20/2020 Active documented as of this encounter (statuses as of 11/17/2020) Active Problems Problem Noted Date Uncontrolled type 2 diabetes mellitus wi th hyperglycemia 07/15/2020 Acute blood loss anemia 07/06/2020 Esophagitis 07/06/2020 Esophageal varices 07/06/2020 Bacteremia 07/04/2020 Diabetic ulcer of right great toe 2019 Cellulitis of right toe 04/18/2020 Cellulitis of right lower extremity 080 01/2020 Iron deficiency anemia due to chronic [...] as of this encounter (statuses as of 11/17/2020) Resolved Problems Problem Noted Date Resolved Date [...] pain 01/24/2012 01/17/2017 Genetic Sleep Disorder Research Other*[id number] 05/13/2011 04/07/2016 Obstructive sleep apnea 01/18/2011 12/27/19 [...] as of this encounter (statuses as of 11/17/2020) Immunizations Name Administration Dates Next Due HEP [...] Sign Reading Time Taken Comments Blood Pressure 124/82 11/13/2020 2:04 PM EST Pulse 68 11/13/2020 2:04 PM EST Temperature 36.4 C (97.6 F) 11/13/2020 2:04 PM ES T Respiratory Rate - - Oxygen Saturation 99% 11/13/2020 2:04 PM EST Inhaled Oxygen Concentration - - [...] or bathing? 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-sales and marketing analyst helps 07/15/2020 Because of a physical, [...] Progress Notes * Vanita Dunn MD - 11/13/2020 2:15 PM EST ASSESSMENT / PLAN: Fever, unspecified fever cause (Primary) - discussed possible etiologies including covid related illness - urine sample not possible given wheelchair bound individual - recommend empiric treatment for urinary vs pulm with FQ and cxr to follow up - Ciprofloxacin HCl 500 MG Oral Tablet (Cipro); Take 1 Tab by mouth 2 times a day for 7 days. - XR CHEST 1 VIEW Polyuria - Ciprofloxacin HCl 500 MG Oral Tablet (Cipro); Take 1 Tab by mouth 2 times a day for 7 days. If needed, prefers contact by: Ok to leave message on phone: Pre-visit time: - - - = - min Visit time: 2:15 PM - 2:28 PM = 13 min Post visit: 2:48 PM - 2:51 PM = 3 min Total time: I spent a total of 16 minutes on the date of service in preparation, delivery, and documentation of the care provided to Shaina Bustos excluding any time spent in the performance of separately billed services. SUBJECTIVE: Shaina Bustos is a 65 year old female. Chief Complaint Patient presents with Urinary Tract Infection Symptoms urinating little at a time Other deep ratling in her chest Loss of Appetite HPI: Day 3 of illness - endorses polyuria and fevers - fevers have self resolved - also complains of orthopnea which is worse than her usual - no cough, no hemoptysis - eating drinking well, otherwise at baseline. Current Outpatient Medications Medication Sig Dispense Refill Ciprofloxacin HCl 500 MG Oral Tablet (Cipro) Take 1 Tab by mouth 2 times a day for 7 days. 14 Tab 0 Gabapentin 300 MG Oral Capsule [...] skin once a week 6 mL 3 [facility] [place] Delica Plus [id number] TESTING once daily 100 Each 3 OneTouch Verio In Vitro Strip (Glucose Blood) TESTING once daily 100 Strip 3 Lidocaine-Prilocaine 2.5-2.5 % External Cream (Emla) Apply topically to affected area as needed forOther (for port). APPLY TO SKIN OVER MEDIPORT & COVER 1HR PRIOR TO ACCESSING. 30 g 3 Nadolol 20 MG Oral Tablet (CORGARD) One daily 90 Tab 1 Dexcom G6 Adjudication Specialist Device Use as directed. To test [...] skin once a day 30 mL 3 Cyclobenzaprine HCl 10 MG Oral Tablet (FLEXERIL) TAKE 1 TABLET BY MOUTH AT BEDTIME 30 Tab 2 Fluticasone-Salmeterol 250-50 MCG/DOSE Inhalation Aerosol Powder Breath [...] BY MOUTH ONCE DAILY 90 Tab 1 traZODone (DESYREL) 50 MG Tablet TAKE 1 TABLET BY MOUTH AT BEDTIME 90 Tab 1 linaCLOtide (LINZESS) 290 MCG Capsule Take 1 Cap by mouth daily before breakfast. 90 Cap 3 Blood Glucose Monitoring Suppl (BLOOD GLUCOSE MONITOR SYSTEM) w/Device KIT Use to test once per day. 1 Kit 0 Albuterol Sulfate (ALBUTEROL HFA) 108 (90 BASE) MCG/ACT inhaler Inhale 2 Puffs by mouth every 4 hours as needed for Cough or Wheezing. With spacer 16 g 1 nystatin (NYSTOP) 911198 UNIT/GM powder Apply topically to affected area [...] mouth daily. 1 Tab 0 OBJECTIVE: BP 124/82 | Pulse 68 | Temp 36.4 C (97.6 F) (Tympanic) | SpO2 99% Vitals reviewed and is normotensive afebrile and not tachycardic and not hypoxic General: No acute distress. In wheelchair. Neuro: Alert Pleasant & interactive. Respiratory: Good inspiratory effort, no labored breathing. Mild inspiratory wheeze in right upper lung, clear in all other lung tuttle CV: rrr, no m/r/g HEENT: Conjunctivae appear clear. Skin: No rash visible on exposed skin areas, normal coloration & appears dry. Psych: Normal affect. Fluent speech. Vanita Dunn MD [address] [address] documented in this encounter Plan of Treatment Upcoming Encounters Date Type Specialty Care Team Description 11/20/2020 Hem/Onc Treatment Hematology [place] [place], Chair 1 Hem Onc Sc[address] [place] [address] [phone] 11/30/2020 Office Visit Family Medicine Alexandra Caceres, [address] [place] [address] [phone] 12/01/2020 Nutrition Services Gastroenterology Melissa Omalley, [place] [address] [facility] [place] [address] [phone] 12/04/2020 Hem/Onc Treatment Hematology Oncology [place], Chair 8 Hem Onc Scenery [address] [place] [address] [phone] 12/14/2020 Office Visit Pharmacy [facility] [address], [place] [phone] 12/18/2020 Hem/Onc Treatment Hematology Oncology [place], Chair 7 Hem Onc Scenery [address] [place] [address] [phone] 01/01/2021 Office Visit Hematology Oncology [facility]ono Sanchez [facility] [address] [facility] [address] [phone] 01/21/2021 Office Visit Gastroenterology Lyssa Stout CRNP [address] [place] [address] [phone] 09/09/2021 Imaging Radiology Health Maintenance Due Date [...] of this encounter Implants Implanted Type Area Pre K Lead Teacher Device Identifier Shelf Expiration Date Model / Serial / Lot Microtech Sure Clip Implanted:Qty: 2 on 06/03/2020 by Janis Hatch DO at OR [facility] Clip N/A: Colon 04/21/2022 [facility] 35-C-R / / [id number] documented as of this encounter Procedures Procedure Name Priority Date/Time Associated Diagnosis Comments XR CHEST 1 VIEW Routine 11/13/2020 3:41 PM EST Fever, unspecified fever cause documented in this encounter Results * XR CHEST 1 VIEW (11/13/2020 3:41 PM EST) Specimen Impressions Performed At IMPRESSION Elevation of the right hemidiaphragm with mild right middle lobe/basilar airspace disease. [facility] Narrative Performed At EXAM XR CHEST 1 VIEW - 11/13/2020 3:41 pm HISTORY cough COMPARISON CT PULMONARY EMBOLUS W CONTRAST dated 09/24/2020; XR CHEST 1 VIEW dated 09/24/2020 TECHNIQUE Portable sitting erect AP view of the chest was obtained. FINDINGS Evaluation of the right lower lobe is limited by overlying abdominal soft tissue density. Right chest port terminating at the right atrium. There is stable cardiomegaly. Mild prominence of the pulmonary vasculature, unchanged. There is elevation of the right hemidiaphragm with mild right middle lobe/basilar airspace disease. No large pleural effusion. Visualized osseous structures are unchanged. [facility] Procedure Note Interface, Rad In - 11/17/2020 9:22 AM EST EXAM XR CHEST 1 VIEW - 11/13/2020 3:41 pm HISTORY cough COMPARISON CT PULMONARY EMBOLUS W CONTRAST dated 09/24/2020; XR CHEST 1 VIEW date09/24/2020 TECHNIQUE Portable sitting erect AP view of the chest was obtained. FINDINGS Evaluation of the right lower lobe is limited by overlying abdominal softtissue density. Right chest port terminating at the right atrium. Thereis stable cardiomegaly. Mild prominence of the pulmonary vasculature,unchanged. There is elevation of the right hemidiaphragm with mild rightmiddle lobe/basilar airspace disease. No large pleural effusion.Visualized osseous structures are unchanged. IMPRESSION IMPRESSION Elevation of the right hemidiaphragm with mild right middle lobe/basilarairspace disease. 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
--- OUTSIDE RECORDS SUMMARY | 2023-05-10 21:29 | External Medical Summary | Summary of Care ---
Author Name Unknown Organization [facility] Address [facility] [place] [address] Care Team Providers Care Ext Js Developer Name Role Phone QamarkleberAlexandra fernandez Primary Care Provider Reason for Visit * Reason Comments Acute Encounter Details Date Type Department Care Team Description 11/18/2020 Office Visit [facility] [address] [place] [address] Brianne Pal PA-C [address] [place] [address] [phone] Pneumonia of right lower lobe due to infectious organism* Allergies Active Allergy Reactions Severity Noted Date Comments Adhesive Tape Itching 04/29/2020 Penicillins Rash 02/12/2008 Perflutren Protein A Microsph 2019 Definity-lower back pain documented as of this encounter (statuses as of 11/18/2020) Medications Medication Sig Dispensed Refills Start Date [...] 120 Vial 11 10/02/2019 Active nystatin (NYSTOP) 863834 UNIT/GM powder Apply topically to affected area [...] 3 05/04/2020 Active escitalopram (LEXAPRO) 20 MG TabletIndications: Recurrent major depressive disorder, in partial remission (HCC) TAKE 1 TABLET BY MOUTH ONCE DAILY 90 Tab 1 05/21/2020 Active traZODone (DESYREL) 50 MG TabletIndications: Sleep [...] 30 mL 3 08/31/2020 Active Dexcom G6 Mortar Man Device Use as directed. To test [...] Strip 3 10/29/2020 Active OneTouch Delica Plus [id number] TESTING once daily 100 Each 3 10/29/2020 [...] 11/02/2020 Active Doxycycline Hyclate 100 MG Oral CapsuleIndications :Pneumonia of right lower lobe due to infectious organism Take 1 Cap by mouth 2 times a day for 10 days. Until gone. 20 Cap 0 11/18/2020 11/28/2020 Active Ciprofloxacin HCl 500 MG Oral Tablet (Cipro)Indications :Fever, unspecified fever cause,Polyuria Take 1 Tab by mouth 2 times a day for 7 days. 14 Tab 0 11/13/2020 11/18/2020 Discontinue d(Medicatio n List Clean Up) Hospital, Clinic, or Other Facility Administered Medication Ordered Dose Route Frequency Start Date End Date Status cefTRIAXone (Rocephin) inj 1 gIndications:Pneumonia of right lower lobe due to infectious organism 1 g IM ONCE 11/18/2020 11/18/2020 Ended Lidocaine 1 % (PF) inj 2.1 mLIndications:Pneumonia of right lower lobe due to infectious organism 2.1 mL IM ONCE 11/18/2020 11/18/2020 Ended documented as of this encounter (statuses as of 11/18/2020) Active Problems Problem Noted Date Uncontrolled type [...] as of this encounter (statuses as of 11/18/2020) Resolved Problems Problem Noted Date Resolved Date [...] pain 01/24/2012 01/17/2017 Genetic Sleep Disorder Research Other*[id number] 05/13/2011 04/07/2016 Obstructive sleep apnea 01/18/2011 12/27/19 [...] as of this encounter (statuses as of 11/18/2020) Immunizations Name Administration Dates Next Due HEP [...] Used Tobacco Cessation:Counseling Given: Yes Alcohol Use Drinks/Week oz/Week Comments No Food [...] Sign Reading Time Taken Comments Blood Pressure 138/78 11/18/2020 12:44 PM EST Pulse 77 11/18/2020 12:44 PM EST Temperature 37.1 C (98.7 F) 11/18/2020 12:[address] Respiratory Rate 26 11/18/2020 12:44 PM EST Oxygen Saturation 92% 11/18/2020 12:44 PM EST Inhaled Oxygen Concentration - - [...] or bathing? 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-shredded filler hopper feeder helps 07/15/2020 Because of a physical, menta [...] Progress Notes * Brianne Pal PA-C - 11/18/2020 12:58 PM EST Subjective Shaina Bustos is a 65 year old female that presents for Acute HPI: Here for rev of cxr. Told she has pnx. One night last week temp over 100. Hubby gave her tylenol and it came down. She feels terrible. Audible wheeze. Having a hard time bring up phelgm - if shedoes it is white. She is actively sob. Energy low. Sinus is blocked. She cannot get anything at all. Trying to blow her nose but not getting anywhere. Using inhalers and they do help her short term. Sugars are high. On cipro for urinary symptoms. She is fdc through. She has about 4 left hubby thiks. XR CHEST 1 VIEW - 11/13/[address] PULMONARY EMBOLUS W [...] pleural effusion. Visualized osseous structures are unchanged. IMPRESSION IMPRESSION Elevation of the right hemidiaphragm with mild right middle lobe/basilar airspace disease. Objective BP 138/78 | Pulse 77 | Temp 37.1 C (98.7 F) (Tympanic) | Resp 26 | SpO2 92% There is no height or weight on file to calculate BMI. BP Readings from Last 3 Encounters: 11/18/20 138/78 11/13/20 124/82 11/06/20 123/83 Wt Readings from Last 3 Encounters: 09/24/20 119.7 kg (264 lb) 08/07/20 119.7 kg (264 lb) 08/05/20 119.7 kg (264 lb) Physical exam General: alert, healthy and no distress Head: Normocephalic, No masses, lesions, tenderness or abnormalities Eye Exam: PERRLA, EOMI, Conjunctiva are pink and non-injected, sclera clear Ears: External ears normal, Canals clear, TM's Normal Neck: supple, no adenopathy, no bruits, thyroid normal size, non-tender, without nodularity Heart: regular rate & rhythm, no gallops, S-1 normal and S-2 normal Lungs: chest symmetric with normal AP diameter, no chest deformities noted, no chest wall tenderness, absent lung sounds RUL, otherwise wheezy throughout Assessment and plan Pneumonia of right lower lobe due to infectious organism (Primary) - cefTRIAXone (Rocephin) inj 1 g - Lidocaine 1 % (PF) inj 2.1 mL - Doxycycline Hyclate 100 MG Oral Capsule; Take 1 Cap by mouth 2 times a day for 10 days. Until gone. Follow Up: Return in about 1 week (around 11/25/2020) for recheck pneumonia. | For: recheck pneumonia Worsened on cipro Urinary sx resolved Stop cipri, rocephin today (has had before and kayley well) and start [facility] er for poss admission if worsens Nebs and inhalers at home Total time today including reviewing chart before the visit, pertinent labs, imaging reports, face to face time, and documentation time was 25 minutes. The above was discussed and understanding was expressed. Brianne Pal PA-C documented in this encounter Nursing Notes * Kiesha Schmitt LPN - 11/18/2020 1:22 PM EST Pre-Administration Time Out Procedure Performed: Yes Patient Identified (Ask Name/Date of ): Yes Does the patient have a fever greater than 101 degrees today? No Patient allergic to latex? No Has the patient ever fainted after receiving an injection? No VFC Stock: No Injection(s) verified: Yes, Injection Name: Ceftriaxone Verified Side and Site: Yes Verified Shot(s) with Parent(s)/Patient: Yes * Keyonna Barillas LPN - 11/18/2020 12:44 PM EST Patient want to discuss pneumonia. documented in this encounter Plan of Treatment Upcoming Encounters Date Type Specialty Care Team Description 11/20/2020 Hem/Onc Treatment Hematology Oncology [place], Chair [address] [facility] [place] [address] [phone] 11/30/2020 Office Visit Family Medicine Alexandra Caceres, [address] [place] [address] [phone] 12/01/2020 Nutrition Services Gastroenterology Melissa Omalley RDN [address] [place] [address] [phone] 12/04/2020 Hem/Onc Treatment Hematology Oncology [place], Chair [address] Hem On[address] [facility] [place] [address] [phone] 12/14/2020 Office Visit Pharmacy [facility] [address], [place] [phone] 12/18/2020 Hem/Onc Treatment Hematology Oncology [place], Chair [address] [facility] [place] [address] [phone] 01/01/2021 Office Visit [facility] [id number] 01/21/2021 Office Visit Gastroenterology Lyssa Stout CRNP [address] [facility] [place] [address] [phone] 09/09/2021 Imaging Radiology Health Maintenance Due Date [...] of this encounter Implants Implanted Type Area Preventative Maintenance Technician Device Identifier Shelf Expiration Date Model / Serial / Lot Microtech Sure Clip Implanted:Qty: 2 on 06/03/2020 by Janis Hatch DO at OR [facility] Clip N/A: Colon 04/21/2022 [facility]-F-26-2 35-C-R / / [id number] documented as of this encounter Visit Diagnoses Diagnosis Pneumonia of right lower lobe due to infectious organism- Primary documented in this encounter Administered Medications Inactive Administered Medications - up to 3 most recent administrations Medication Order MAR Action Action Date Dose Rate Site cefTRIAXone (Rocephin) inj 1 g 1 g, Intramuscular, ONCE, 11/18/20 at 1345, For 1 dose Given 11/18/2020 1:22 PM EST 1 g Dorsogluteal Left Lidocaine 1 % (PF) inj 2.1 mL 2.1 mL, Intramuscular, ONCE, 11/18/20 at 1345, For 1 dose Given 11/18/2020 1:23 PM EST 2.1 mL Dorsogluteal Left documented in this encounter Advance Directives Documents on File Type Date Recorded Patient Medical Delivery Technician Expl anation Advanced Directive service a [...] [place] Communication Syed Bustos Spouse Emergency Contact "
--- OUTSIDE RECORDS SUMMARY | 2023-05-10 21:29 | External Medical Summary | Summary of Care ---
Author Name Unknown Organization [place] [address] Care Team Providers Care I&C Tech Name Role Phone Alexandra Caceres Primary Care Provider Reason for Visit * Reason Onset Date Comments Test Results 11/17/2020 Encounter Details Date Type Department Care Team Description 11/17/2020 Telephone [facility] [address] [place] [address] Vanita Dunn MD [address], [place] [id number] Test Results Allergies Active Allergy Reactions Severity [...] 120 Vial 11 10/02/2019 Active nystatin (NYSTOP) 814553 UNIT/GM powder Apply topically to affected area [...] 30 mL 3 08/31/2020 Active Dexcom G6 Veterinary Receptionist Device Use as directed. To test [...] once daily 100 Strip 3 10/29/2020 Active Tokiva TechnologiesTouch Delica Plus [id number] TESTING once daily 100 Each 3 10/29/2020 [...] pain 01/24/2012 01/17/2017 Genetic Sleep Disorder Research Other*[id number] 05/13/2011 04/07/2016 Obstructive sleep apnea 01/18/2011 12/27/19 [...] or bathing? 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-calenderer helps 07/15/2020 Because of a physical, menta [...] Miscellaneous Notes * Telephone Encounter - Vivian Izquierdo LPN - 11/17/2020 10:05 AM EST Called pt. Informed message. Pt requested to be seen again. Scheduled with Brianne 11/18 * Telephone Encounter - Vanita Dunn MD - 11/17/2020 9:44 AM EST Please call pt to let her know that her chest x ray did show a small pneumonia in her right chest -the medicine I gave her at our last visit would cover for that. How is she feeling/is her rattling in her chest improving? If so, great! If not, I recommend she come back in the office to be seen. AG documented in this encounter Plan of Treatment Upcoming Encounters Date Type Specialty Care Team Description 11/18/2020 Office Visit Family Medicine Brianne Pal PA-C [address] [place] [address] [phone] 11/20/2020 Hem/Onc Treatment Hematology Oncology [place], Chair [address] [place] [address] [phone] 11/30/2020 Office Visit Family Medicine Alexandra Caceres DO [address] [place] [address] [phone] 12/01/2020 Nutrition Services Gastroenterology Melissa Omalley, [place] [address] [place] [address] [phone] 12/04/2020 Hem/Onc Treatment Hematology Oncology [place], Chair [address] [place] [address] [phone] 12/14/2020 Office Visit Pharmacy [facility] [address], [place] [phone] 12/18/2020 Hem/Onc Treatment Hematology Oncology [place], Chair [address] [place] [address] [phone] 01/01/2021 Office Visit [facility]cology [facility] [address] [phone] 01/21/2021 Office Visit Gastroenterology Lyssa Stout CRNP [address] [facility] [place] [address] [phone] 09/09/2021 Imaging Radiology Health Maintenance Due Date [...] of this encounter Implants Implanted Type Area Torch Shearer Device Identifier Shelf Expiration Date Model / Serial / Lot Microtech Sure Clip Implanted:Qty: 2 on 06/03/2020 by Janis Hatch DO at OR [facility] Clip N/A: Colon 04/21/2022 [facility]-F-26-2 35-C-R / / [id number] documented as of this encounter Advance Directives Documents on File Type Date Recorded Patient Director Of Diversity And Inclusion Expl anation Advanced Directive service a kerri [...]
--- OUTSIDE RECORDS SUMMARY | 2023-05-10 21:29 | External Medical Summary | Summary of Care ---
Author Name Unknown Organization [facility] [address] Care Team Providers Care Furniture Restorer Name Role Phone Alexandra Caceres Primary Care Provider Reason for Visit * Reason Onset Date Comments Test Results 11/17/2020 Encounter Details Date Type Department Care Team Description 11/17/2020 Telephone [facility] [address] [place] [address] Vanita Dunn MD [address], [place] [id number] Test Results Allergies Active Allergy Reactions Severity [...] 120 Vial 11 10/02/2019 Active nystatin (NYSTOP) 995040 UNIT/GM powder Apply topically to affected area [...] 30 mL 3 08/31/2020 Active Dexcom G6 Head Of Global Strategic Partnerships Device Use as directed. To [...] once daily 100 Strip 3 10/29/2020 Active Tixie ([employer]Touch Delica Plus Erytpy64X TESTING once daily 100 Each 3 10/29/2020 [...] pain 01/24/2012 01/17/2017 Genetic Sleep Disorder Research Other*[id number] 05/13/2011 04/07/2016 Obstructive sleep apnea 01/18/2011 12/27/19 [...] or bathing? 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 07/15/2020 Because of a physical, [...] Chair [address] [place] [address] [phone] 11/30/2020 Office Visit Family Medicine Alexandra Caceres DO [address] [place] [address] [phone] 12/01/2020 Nutrition Services Gastroenterology Melissa Omalley, RDN [address] [place] [address] [phone] 12/04/2020 Hem/Onc Treatment Hematology Oncology [place], Chair [address] [facility] [place] [address] [phone] 12/14/2020 Office Visit Pharmacy [facility] [address], [place] [phone] 12/18/2020 Hem/Onc Treatment Hematology Oncology [place], Chair [address] [facility] [address] [phone] 01/01/2021 Office Visit Hematology Oncology Tono Sanchez MD [address] [place] [address] [phone] 01/21/2021 Office Visit [facility]astroenterology [facility]as [facility]out [facility] [address] [phone] 09/09/2021 Imaging Radiology Health Maintenance Due Date [...] this encounter Implants Implanted Type Area Medical Staff Assistant Device Identifier Shelf Expiration Date Model / Serial / Lot Microtech Sure Clip Implanted:Qty: 2 on 06/03/2020 by Janis Hatch DO at OR [facility] Clip N/A: Colon 04/21/2022 [facility]-F-26-2 35-C-R / / [id number] documented as of this encounter Advance Directives Documents on File Type Date Recorded 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
--- OUTSIDE RECORDS SUMMARY | 2023-05-10 21:30 | External Medical Summary | Summary of Care ---
Author Name Unknown Organization [facility] Address [facility] [place] [address] Care Team Providers Care Director Mobile Name Role Phone Alexandra Caceres DO Primary Care Provider [phone] Reason for Visit * Reason Onset Date Comments Other 11/13/2020 Encounter Details Date Type Department Care Team Description 11/13/2020 Telephone [facility] [address] [place], [place] [id number] Alexandra Caceres DO [address] [place] [address] [phone] Other Allergies Active Allergy Reactions Severity Noted Date Comments Adhesive Tape Itching 04/29/2020 Penicillins Rash 02/12/2008 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 To test blood [...] Strip 3 10/29/2020 Active OneTouch Delica Plus [id number] TESTING once daily 100 Each 3 10/29/2020 [...] as of this encounter (statuses as of 11/16/2020) Active Problems Problem Noted Date Uncontrolled type [...] as of this encounter (statuses as of 11/16/2020) Resolved Problems Problem Noted Date Resolved Date [...] pain 01/24/2012 01/17/2017 Genetic Sleep Disorder Research Other*[id number] 05/13/2011 04/07/2016 Obstructive sleep apnea 01/18/2011 12/27/19 [...] as of this encounter (statuses as of 11/16/2020) Immunizations Name Administration Dates Next Due HEP [...] or bathing? 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-summer child caregiver helps 07/15/2020 Because of a physical, [...] Telephone Encounter - Indira Hudson RPh - 11/16/2020 11:52 AM EST Patient Phone Numbers Called and spoke with patient. Discussed paperwork will be submitted today. Indira Hudson RPh, Pharm D, BCACP Clinical Pharmacist 11/16/20 12:20 PM * Telephone Encounter - Michaelle Lindquist LPN - 11/16/2020 11:32 AM EST Please advise. I know that there was a form recently. * Telephone Encounter - Jennifer Lynch CPhT - 11/16/2020 10:57 AM EST Patient calling back regarding the status of her scripts. Advised patient I don't have any recent orders for her dexcom from previous encounter. Pended the dexcom to mail order. Patient is requestinga phone call from the nurse. Please advise. Thank you, Jennifer Lynch Logger [facility] 11/16/2020, 10:58 AM * Telephone Encounter - Marie Triplett OSA - 11/13/2020 4:15 PM EST Patient calling requesting help getting diabetic testing equipment? Strips? Transferred to [place]en at the RX line. documented in this encounter Plan of Treatment Upcoming Encounters Date Type Specialty Care Team Description 11/20/2020 Hem/Onc Treatment Hematology Oncology [place], Chair [address] [place] [facility] [address] [phone] 11/30/2020 Office Visit Family Medicine Alexandra Caceres, DO [address] [place] [address] [phone] 12/01/2020 Nutrition Services Gastroenterology Melissa Omalley, [place] [address] [place] [address] [phone] 12/04/2020 Hem/Onc Treatment Hematology Oncology [place], Chair [address] [place] [address] [phone] 12/14/2020 [facility] [address] [place] [facility] [place] [address] [phone] 12/18/2020 Hem/Onc Treatment Hematology Oncology [place], Chair [address] [place] [address] [phone] 01/01/2021 Office Visit Hematology Oncology Toon Sanchez MD [address] [place] [address] [phone] 01/21/2021 Office Visit Gastroenterology Lyssa Stout CRNP [address] [facility] [place] [address] [phone] 09/09/2021 Imaging Radiology Health Maintenance Due Date [...] of this encounter Implants Implanted Type Area Grain Distributor Device Identifier Shelf Expiration Date Model / Serial / Lot Microtech Sure Clip Implanted:Qty: 2 on 06/03/2020 by Janis Hatch DO at OR [facility] Clip N/A: Colon 04/21/2022 [facility]-F-26-2 35-C-R / / [id number] documented as of this encounter Advance Directives Documents on File Type Date Recorded 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
--- OUTSIDE RECORDS SUMMARY | 2023-05-10 21:30 | External Medical Summary | Summary of Care ---
Author Name Unknown Organization [facility] Address [place] [address] Care Team Providers Care Shelver Name Role Phone Alexandra Caceres DO Primary Care Provider Reason for Visit * Reason Onset Date Comments Medication Refill 11/16/2020 Encounter Details Date Type Department Care Team Description 11/16/2020 Refill [place] [address], [place] [id number] Alexandra Caceres DO [address] [place] [address] [phone] Allergies Active Allergy Reactions Severity Noted Date [...] 120 Vial 11 10/02/2019 Active nystatin (NYSTOP) 889182 UNIT/GM powder Apply topically to affected area [...] 30 mL 3 08/31/2020 Active Dexcom G6 Servicenow Administrator Developer Device Use as directed. To test [...] TO ACCESSING. 30 g 3 10/09/2020 Active Isabella ProductsTouch Verio In Vitro Strip (Glucose Blood) TESTING once daily 100 Strip 3 10/29/2020 Active Isabella ProductsTouch Delica Plus [id number] TESTING once daily 100 Each 3 10/29/2020 [...] pain 01/24/2012 01/17/2017 Genetic Sleep Disorder Research Other*[id number] 05/13/2011 04/07/2016 Obstructive sleep apnea 01/18/2011 12/27/19 [...] or bathing? 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-enrollment management coordinator helps 07/15/2020 Because of a physical, [...] Miscellaneous Notes * Telephone Encounter - Bunny Hudson, [facility] - 11/16/2020 3:54 PM EST Refused Prescriptions: Disp Refills Dexcom G6 Sensor 3 Each 3 Sig: Use as directed. To test blood sugars 4 times a day. Change sensor every 10 days. Dx E11.9 Please dispense 3 boxes for 90 day supplyRefused By: BUNNY HUDSON for Refusal: Other (comment below)Reason for Refusal Comment: getting as DME Dexcom G6 Transmitter 1 Each 3 Sig: Use as directed. To test blood sugars 4 times a day. Change every 90 days. Dx E11.9RefusedBy: BUNNY HUDSON for Refusal: Other (comment below)Reason for Refusal Comment: getting as DME * Telephone Encounter - Radha Joshi [facility] - 11/16/2020 11:01 AM EST Pending Prescriptions: Disp Refills Dexcom G6 Sensor 3 Each 3 Sig: Use as directed. To test blood sugars 4 times a day. Change sensor every 10 days. Dx E11.9 Please dispense 3 boxes for 90 day supply Dexcom G6 Transmitter 1 Each 3 Sig: Use as directed. To test blood sugars 4 times a day. Change every 9 0 days. Dx E11.9 * Telephone Encounter - Radha Joshi [facility] - 11/16/2020 11:01 AM EST Pending Prescriptions: Disp Refills Dexcom G6 Sensor 3 Each 3 Sig: Use as directed. To test blood sugars 4 times a day. Change sensor every 10 days. Dx E11.9 Please dispense 3 boxes for 90 day supply Dexcom G6 Transmitter 1 Each 3 Sig: Use as directed. To test blood sugars 4 times a day. Change e very 90 days. Dx E11.9 * Telephone Encounter - Jennifer Lynch [facility] - 11/16/2020 10:52 AM EST Pending Prescriptions: Disp Refills Dexcom G6 Sensor 3 Each 3 Sig: Use as directed. To test blood sugars 4 times a day. Change sensor every 10 days. Dx E11.9 Please dispense 3 boxes for 90 day supply Dexcom G6 Transmitter 1 Each 3 Sig: Use as directed. To test blood sugars 4 times a day. Change every 90 days. Dx E11.9 Last Office/Telemedicine Visit: 11/13/2020 Next Office Visit: 11/30/2020 Scheduled Provider(s): Alexandra Caceres DO If no future appointments scheduled, and last appointment is greater than a year ago, please schedule patient for a follow-up appointment Last date the medication was ordered: 09/14/20 [facility]: [facility]- [place] Is this request for a controlled substance?No Urine Drug Screen:No results found. However, due to the size of the patient record, not all encounters were searched. Please check Results Review for a complete set of results. Patient Phone Numbers Labs: Lab Results Component Value Date/Time CREAT 0.6 09/24/2020 05:16 PM POTASSIUM 4.0 09/24/2020 05:16 PM TSH 0.69 07/14/2020 04:24 PM LDLCALC 43 04/05/2019 06:40 AM LDLDIRECT 46 02/21/2020 11:43 AM ALT 23 08/21/2020 04:35 PM HGBA1C 9.9 (H) 07/06/2020 05:24 AM documented in this encounter Plan of Treatment Upcoming Encounters Date Type Specialty Care Team Description 11/20/2020 Hem/Onc Treatment Hematology [place], Chair [address] [place] [address] [phone] 11/30/2020 Office Visit Family Medicine Alexandra Caceres DO [address] [place] [address] 12/01/2020 Nutrition Services Gastroenterology Melissa Omal[place], [place] [address] [place] [address] [phone] 12/04/2020 Hem/Onc Treatment Hematology Oncology [place], Chair [address] 200 [place] [address] [phone] 12/14/2020 Office Visit [facility] [address] [place] [address] [phone] 12/18/2020 Hem/Onc Treatment Hematology Oncology [place], Chair [address] Hem Onc [address] 200 [facility] [place], [place] [address] [phone] 01/01/2021 Office Visit Hematology Oncology Tono Sanchez MD 200 [place] [address] [phone] 01/21/2021 Office Visit [facility]enterology [facility] [address] [facility] [address] [phone] 09/09/2021 Imaging Radiology Health Maintenance Due Date [...] of this encounter Implants Implanted Type Area Air/Ocean Export Clerk Device Identifier Shelf Expiration Date Model / Serial / Lot Microtech Sure Clip Implanted:Qty: 2 on 06/03/2020 by Janis Hatch DO at OR [facility] Clip N/A: Colon 04/21/2022 [facility]-F-26-2 35-C-R / / [id number] documented as of this encounter Advance Directives Documents on File Type Date Recorded 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
--- OUTSIDE RECORDS SUMMARY | 2023-05-10 21:30 | External Medical Summary | Summary of Care ---
Author Name Unknown Organization [facility] Address [facility] [place] [address] Care Team Providers Care Parallel Computing Software Engineer Name Role Phone Alexandra Caceres DO Primary Care Provider [phone] Reason for Visit * Reason Onset Date Comments Advice 10/15/2020 Encounter Details Date Type Department Care Team Description 10/15/[address] [facility] [address] [place], [place] [id number] Alexandra Caceres DO [address] [place] [address] [phone] Advice Allergies Active Allergy Reactions Severity Noted [...] 0 Active fluticasone (FLONASE) 50 MCG/ACT nasal sprayIndications: Sinus congestion INSTILL 2 SPRAYS INTO EACH NOSTRIL DAILY DIRECTED 16 g 5 08/01/2019 Active albuterol sulfate (PROVENTIL) (2.5 MG/3ML) 0.083% nebulizer solutionIndicatio ns:Pulmonary vascular congestion Inhale 1 Vial via nebulizer every 6 hours as needed for Wheezing. 120 Vial 11 10/02/2019 Active nystatin (NYSTOP) 677740 UNIT/GM powder Apply topically to affected area [...] 3 05/04/2020 Active escitalopram (LEXAPRO) 20 MG TabletIndications :Recurrent major depressive disorder, in partial remission (HCC) TAKE 1 TABLET BY MOUTH ONCE DAILY 90 Tab 1 05/21/2020 Active traZODone (DESYREL) 50 MG TabletIndications :Sleep disturbances TAKE 1 TABLET BY MOUTH AT BEDTIME 90 Tab 1 05/21/2020 Active potassium chloride ER 10 MEQ TBCRIndications:H [...] Sodium 20 MG Oral Tablet Delayed Release (PROTONIX)Indicat ions:NAFLD (nonalcoholic fatty liver disease),Other cirrhosis of liver (HCC) Take 2 Tabs by mouth 2 times a day. 180 Tab 1 07/07/2020 Active Furosemide 20 MG Oral Tablet (LASIX)Indication s:Localized edema,Venous stasis dermatitis of both lower extremities TAKE 1 TABLET BY MOUTH once DAilY NEEDED for edema 90 Tab 1 07/16/2020 Active Atorvastatin Calcium 40 MG Oral Tablet (LIPITOR)Indicati ons:Dyslipidemia, goal LDL below 70 TAKE 1 TABLET BY MOUTH AT BEDTIME 90 Tab 1 07/16/2020 Active Ipratropium-Albut jayme 0.5-2.5 (3) MG/3ML Inhalation Solution (DUONEB)Indicatio ns:Moderate persistent asthma with acute exacerbation Inhale 3 mL via nebulizer 4 times a day. 3 mL 10 07/27/2020 Active Fluticasone-Salme terol 250-50 MCG/DOSE Inhalation Aerosol Powder Breath Activated (Advair Diskus)Indication s:Moderate persistent asthma with acute exacerbation Inhale 1 Puff by mouth 2 times a day. 60 Each 3 07/27/2020 Active Cyclobenzaprine HCl 10 MG Oral Tablet (FLEXERIL) TAKE 1 TABLET BY MOUTH AT BEDTIME 30 Tab 2 08/12/2020 Active Lantus SoloStar 100 UNIT/ML Subcutaneous Solution Pen-injector (insulin glargine)Indicati ons:Type 2 diabetes mellitus with hemoglobin A1c goal of less than 7.0% (HCC) Inject 25 units under the skin once a day 30 mL 3 08/31/2020 Active Dexcom G6 Electrical Checkout Mechanic Device Use as directed. To test [...] TO ACCESSING. 30 g 3 10/09/2020 Active levothyroxine (LEVOXYL) 200 MCG Tablet Take 1 Tab by mouth daily. 90 Tab 3 02/20/2020 11/02/19 21 Discontinued Trulicity 1.5 MG/0.5ML Subcutaneous Solution Pen-injector (Dulaglutide)Connie cations:Type 2 diabetes mellitus with hemoglobin A1c goal of less than 7.0% (HCC) Inject 1.5mg (one pen) under the skin once weekly 6 mL 3 06/12/2020 11/02/19 21 Discontinued Insulin Aspart 100 UNIT/ML Subcutaneous Solution (NovoLOG) Inject 28 units under the skin before breakfast, 28 units before lunch, and 28 units before supper 60 mL 3 08/31/2020 11/02/19 21 Discontinued NovoLOG FlexPen 100 UNIT/ML Subcutaneous Solution Pen-injector (insulin aspart) INJECT 12 UNITS UNDER THE SKIN THREE TIMES A DAY BEFORE MEALS. PLUS COVER MEALS WITH THE FOLLOWING SLIDING SCALE: 80-150 (O UNITS); 151-200 (2 UNITS); 201-250 (4 UNITS); 251-300 (6 UNITS) 15 mL 0 09/17/2020 11/02/19 21 Discontinued OneTouch Delica Plus [id number] TESTING once daily 100 Each 3 09/28/2020 10/28/19 21 Discontinued(Ref ill) OneTouch Verio In Vitro Strip (Glucose Blood) TESTING once daily 100 Strip 3 09/28/2020 10/28/19 21 Discontinued(Ref ill) Gabapentin 300 MG Oral Capsule (Neurontin) TAKE 1 CAPSULE BY MOUTH IN THE MORNING, 1 CAPSULE MIDDAY, AND 2 CAPSULES IN THE EVENING 180 Cap 0 10/08/2020 11/02/19 21 Discontinued Oxybutynin Chloride 5 MG Oral Tablet (Ditropan) TAKE 1 TABLET BY MOUTH TWICE DAILY 60 Tab 0 10/08/2020 11/02/19 21 Discontinued Tamsulosin HCl 0.4 MG Oral Capsule (Flomax) TAKE 1 CAPSULE BY MOUTH ONCE DAILY 90 Cap 0 10/08/2020 11/02/19 21 Discontinued documented as of this encounter [...] pain 01/24/2012 01/17/2017 Genetic Sleep Disorder Research Other*[id number] 05/13/2011 04/07/2016 Obstructive sleep apnea 01/18/2011 12/27/19 [...] or bathing? 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-live in caregiver helps 07/15/2020 Because of a [...] Notes * Telephone Encounter - Indira Hudson [facility] - 11/16/2020 12:22 PM EST Patient Phone Numbers Called and spoke with patient. Discussed paperwork will be submitted today. Indira Hudson [facility], Pharm D, BCACP Clinical Pharmacist 11/16/20 12:23 PM * Telephone Encounter - Nany Perez PHARM Tech - 11/13/2020 4:32 PM EST Pt calling to inform doctor she has not received her rx for Dexcom [place], Sensors, or transmitter.Pt states she does not liking pricking her finger. Pt is concerned about testing her sugar. Please advise. Thank you, Nany Perez [facility] Tennis Coach [facility] 11/13/2020, 4:32 PM * Telephone Encounter - Michaelle Lindquist LPN - 10/27/2020 2:15 PM EST Forms completed through MTM * Telephone Encounter - Deepali Ortiz OSA - 10/23/2020 1:27 PM EST Received a call asking if fax was received by office. Name/Company sending fax: [employer] What fax is pertaining to: dexcom order Date(s) they sent request: 10/20, 10/23 Verified fax number they are sending to is correct (Y or N): Y Callback Number for the clinic to call to verified if fax was received: [phone] * Telephone Encounter - Michaelle Lindquist LPN - 10/20/2020 1:12 PM EST Noted * Telephone Encounter - Christopher Garcia OSA - 10/20/2020 12:43 PM EST Pt states [employer] ([id number]) is going to be contact Dr. Caceres with the information to on it. PCP will need to fill it out and send it back so she can get her supplies. * Telephone Encounter - Indira Hudson RPh - 10/15/2020 2:15 PM EST Patient Phone Numbers Called and spoke with patient. Patient reports she currently has Xochitl but will be getting Dexcom. Patient will bring Dexcom to next [facility] appt and will review in more detail. Reviewed that Xochitl sensor needs to be changed every 14 days and Dexcom sensor needs to be changed every 10 days. She verbalized understanding. Will follow-up at inperson [facility] appt on 11/02 Indira Hudson RPh, Pharm D, BCACP Clinical Pharmacist 10/15/20 2:15 PM * Telephone Encounter - Yanira Graves LPN - 10/15/2020 1:27 PM EST Called [facility] and verified that pt had refills and they will get it ready for pt now Called pt and made her aware She states that her last one did not last the entire month Advised that she should be changing the sensor every 10 days per instructions on the Sig Pt states that she was never told that Could someone from [facility] call her regarding her Dexcom Please advise * Telephone Encounter - Jaci Bangura CPhT - 10/15/2020 10:32 AM EST Patient calling to request a order for Dexcom G6 Sensor , she received 1 in the middle of September in the mail , not sure where it is coming from please advise patient if there is currently a order placed [phone] Jaci Jiang Certified Green Building Engineer II Pharmacy Refill Call Center 110:35 AM documented in this encounter Plan of Treatment Upcoming Encounters Date Type Specialty Care Team Description 11/20/2020 Hem/Onc Treatment Hematology [place], Chair [address] Hem On[address] [place] [address] [phone] 11/30/2020 Office Visit Family Medicine Alexandra Caceres, DO [address] [place] [address] [phone] 12/01/2020 Nutrition Services Gastroenterology Melissa Omal[place], RDN [address] [place] [address] [phone] 12/04/2020 Hem/Onc Treatment Hematology Oncology [place], Chair [address] Hem Onc Scenery 200 [facility] [place] [address] [phone] 12/14/2020 Office Visit Pharmacy [facility] [address] [place], [place] [address] 12/18/2020 Hem/Onc Treatment Hematology Oncology [place], Chair 7 Hem Onc Scenery 200 [facility] [place] [address] [phone] 01/01/2021 Office Visit Hematology Oncology Tono Sanchez MD 200 [facility] [place] [id number] 01/21/2021 Office Visit Gastroenterology Lyssa Stout CRNP [address] [place] [address] [phone] 09/09/2021 Imaging Radiology Health Maintenance Due Date [...] of this encounter Implants Implanted Type Area Pullman Conductor Device Identifier Shelf Expiration Date Model / Serial / Lot Microtech Sure Clip Implanted:Qty: 2 on 06/03/2020 by Janis Hatch DO at OR [facility] Clip N/A: Colon 04/21/[address] [facility]-F-26-2 35-C-R / / [id number] documented as of this encounter Advance Directives [...]
--- OUTSIDE RECORDS SUMMARY | 2023-05-10 21:30 | External Medical Summary | Summary of Care ---
Author Name Unknown Organization [facility] Address [facility] [place] [address] Care Team Providers Care Rehab Office Coordinator Name Role Phone NickiAlexandra Daisha MORENO Primary Care Provider [phone] Reason for Visit * Reason Onset Date Comments Medication Update 11/16/2020 Encounter Details Date Type Department Care Team Description 11/16/2020 Telephone Pharmacy, [place] [address] [place] [address] [facility] [address] [place] [address] [phone] Medication Update Allergies Active Allergy Reactions Severity [...] 120 Vial 11 10/02/2019 Active nystatin (NYSTOP) 825837 UNIT/GM powder Apply topically to affected area [...] 30 mL 3 08/31/2020 Active Dexcom G6 Material Carrier Device Use as directed. To test blood [...] TO ACCESSING. 30 g 3 10/09/2020 Active TiinkkTouch Verio In Vitro Strip (Glucose Blood) TESTING once daily 100 Strip 3 10/29/2020 Active TiinkkTouch Delica Plus Llafip11J TESTING once daily 100 Each 3 10/29/2020 [...] pain 01/24/2012 01/17/2017 Genetic Sleep Disorder Research Other*[id number] 05/13/2011 04/07/2016 Obstructive sleep apnea 01/18/2011 12/27/19 [...] or bathing? 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-applique cutter helps 07/15/2020 Because of a physical, menta [...] Encounter - Indira Hudson RPh - 11/16/2020 5:02 PM EST Forms faxed to [employer] for Dexcom G6 at . Of note, patient now has Medicare and needs to get CGM through DME Indira Hudson RPh, Pharm D, BCACP Clinical Pharmacist 11/16/20 5:03 PM documented in this encounter Plan of Treatment Upcoming Encounters Date Type Specialty Care Team Description 11/20/2020 Hem/Onc Treatment Hematology [place], Chair [address] Hem Onc [address] [place], [place] [address] [phone] 11/30/2020 Office Visit Family Medicine Alexandra Caceres, DO [address], [place] [address] 12/01/2020 Nutrition Services Gastroenterology Melissa Omal[place], [place] [address] [place] [address] [phone] 12/04/2020 Hem/Onc Treatment Hematology Oncology [place], Chair [address] Hem Onc Scenery 200 [place] [address] [phone] 12/14/2020 Office Visit Pharmacy [facility] [address], [place] [phone] 12/18/2020 Hem/Onc Treatment Hematology Oncology [place], Chair [address] Hem Onc Scenery [address] [facility] [address] [phone] 01/01/2021 Office Visit Hematology Oncology Tono Sanchez MD 200 [place] [address] [phone] 01/21/2021 Office Visit [facility]astroenterology [facility] [address] [facility] [address] [phone] 09/09/2021 Imaging Radiology Health Maintenance Due Date [...] this encounter Implants Implanted Type Area Music Therapy Specialist Device Identifier Shelf Expiration Date Model / Serial / Lot Microtech Sure Clip Implanted:Qty: 2 on 06/03/2020 by Janis Hatch DO at OR [facility] Clip N/A: Colon 04/21/2022 [facility]-F-26-2 35-C-R / / [id number] documented as of this encounter Advance Directives Documents on File Type Date Recorded 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
--- OUTSIDE RECORDS SUMMARY | 2023-05-10 21:31 | External Medical Summary | Summary of Care ---
Author Name Unknown Organization [facility] Address [facility] [place] [address] Care Team Providers Care Multineedle Shirrer Name Role Phone Alexandra Caceres DO Primary Care Provider Reason for Visit * Reason Onset Date Comments Other 11/13/2020 Encounter Details Date Type Department Care Team Description 11/13/2020 Telephone [facility] [address] [place], [place] [id number] Alexandra Caceres DO [address] [place] [address] [phone] Other Allergies Active Allergy Reactions Severity Noted [...] 120 Vial 11 10/02/2019 Active nystatin (NYSTOP) 717399 UNIT/GM powder Apply topically to affected area [...] 30 mL 3 08/31/2020 Active Dexcom G6 Corrugated Box Machine Operator Device Use as directed. To [...] Strip 3 10/29/2020 Active OneTouch Delica Plus Ajuhes25D TESTING once daily 100 Each 3 10/29/2020 [...] pain 01/24/2012 01/17/2017 Genetic Sleep Disorder Research Other*[id number] 05/13/2011 04/07/2016 Obstructive sleep apnea 01/18/2011 12/27/19 [...] or bathing? 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-laydown machine operator helps 07/15/2020 Because of a [...] 11/16/2020 11:52 AM EST Patient Phone Numbers * Telephone Encounter - Michaelle Lindquist LPN [...] nurse. Please advise. Thank you, Jennifer Lynch Tool Keeper [facility] 11/16/2020, 10:58 AM * Telephone Encounter - Marie Triplett OSA - 11/13/2020 4:15 PM EST Patient calling requesting help getting diabetic testing equipment? Strips? Transferred to [place]en at the RX line. documented in this encounter Plan of Treatment Upcoming Encounters Date Type Specialty Care Team Description 11/20/2020 Hem/Onc Treatment Hematology Oncology [place], Chair [address] Hem Onc Scenery 200 [place] [address] [phone] 11/30/2020 Office Visit Family Medicine Alexandra Caceres, [address] [place] [address] [phone] 12/01/2020 Nutrition Services Gastroenterology Melissa Omalley, [place] [address] [place] [address] [phone] 12/04/2020 Hem/Onc Treatment Hematology Oncology [place], Chair [address] Hem Onc Scenery [address] [place] [address] [phone] 12/14/2020 Office Visit Pharmacy [facility] [address] [place], [place] [phone] 12/18/2020 Hem/Onc Treatment Hematology Oncology [place], Chair [address] Hem Onc Scenery [address] [facility] [place] [address] [phone] 01/01/2021 Office Visit Hematology Oncology Tono Sanchez MD 200 [place] [address] [phone] 01/21/2021 Office Visit Gastroenterology Lyssa Stout CRNP [address] [facility] [place] [address] [phone] 09/09/2021 Imaging Radiology Health Maintenance Due Date [...] of this encounter Implants Implanted Type Area Termite Renewal Inspector Device Identifier Shelf Expiration Date Model / Serial / Lot Microtech Sure Clip Implanted:Qty: 2 on 06/03/2020 by Janis Hatch DO at OR [facility] Clip N/A: Colon 04/21/2022 [facility]-F-26-2 35-C-R / / [id number] documented as of this encounter Advance Directives Documents on File Type Date Recorded 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
--- OUTSIDE RECORDS SUMMARY | 2023-05-10 21:31 | External Medical Summary | Summary of Care ---
Author Name Unknown Organization [facility] Address [facility] [place] [address] Care Team Providers Care Crew Clerk Name Role Phone Alexandra Caceres DO Primary Care Provider [phone] Reason for Visit * Reason Onset Date Comments Other 11/13/2020 Encounter Details Date Type Department Care Team Description 11/13/2020 Telephone [facility] [address] [place], [place] [id number] Alexandra Caceres DO [address] [place] [address] [phone] Other Allergies Active Allergy Reactions Severity Noted [...] 120 Vial 11 10/02/2019 Active nystatin (NYSTOP) 542102 UNIT/GM powder Apply topically to affected area [...] 30 mL 3 08/31/2020 Active Dexcom G6 Cross Country Truck Driver Device Use as directed. To [...] Strip 3 10/29/2020 Active OneTouch Delica Plus [id number] TESTING once daily 100 Each 3 10/29/2020 [...] pain 01/24/2012 01/17/2017 Genetic Sleep Disorder Research Other*[id number] 05/13/2011 04/07/2016 Obstructive sleep apnea 01/18/2011 12/27/19 [...] bathing? 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-fire department battalion chief helps 07/15/2020 Because of a physical, [...] Miscellaneous Notes * Telephone Encounter - Jennifer Lynch CPhT - 11/16/2020 10:57 AM EST Patient calling back regarding the status of her scripts. Advised patient I don't have any recent orders for her dexcom from previous encounter. Pended the dexcom to mail order. Patient is requestinga phone call from the nurse. Please advise. Thank you, Jennifer Lynch Patient Financial Advocate [facility] 11/16/2020, 10:58 AM * Telephone Encounter - Marie Triplett OSA - 11/13/2020 4:15 PM EST Patient calling requesting help getting diabetic testing equipment? Strips? Transferred to Hellen at the RX line. documented in this encounter Plan of Treatment Upcoming Encounters Date Type Specialty Care Team Description 11/20/2020 Hem/Onc Treatment Hematology Oncology [place], Chair [address] [place] [address] [phone] 11/30/2020 Office Visit Family Medicine Alexandra Caceres, DO [address] [place] [address] [phone] 12/01/2020 Nutrition Services Gastroenterology Melissa Omalley, [place] [address] [place] [address] [phone] 12/04/2020 Hem/Onc Treatment Hematology Oncology [place], Chair 8 Hem Onc Scenery 200 [facility] [place] [address] [phone] 12/14/2020 Office Visit Pharmacy [facility] [address] [place], [place] [id number] 12/18/2020 Hem/Onc Treatment Hematology Oncology [place], Chair 7 Hem Onc Scenery 200 [facility] [place] [address] [phone] 01/01/2021 Office Visit Hematology Oncology Tono Sanchez [facility] 200 [facility] [address] [phone] 01/21/2021 Office Visit Gastroenterology Lyssa Stout CRNP 132 [facility] [place] [address] [phone] 09/09/2021 Imaging Radiology Health Maintenance Due Date [...] of this encounter Implants Implanted Type Area Blunger Loader Device Identifier Shelf Expiration Date Model / Serial / Lot Microtech Sure Clip Implanted:Qty: 2 on 06/03/2020 by Janis Hatch DO at OR [facility] Clip N/A: Colon 04/21/2022 [facility]-F-26-2 35-C-R / / [id number] documented as of this encounter Advance Directives Documents on File Type Date Recorded 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
--- OUTSIDE RECORDS SUMMARY | 2023-05-10 21:31 | External Medical Summary | Summary of Care ---
Author Name Unknown Organization [facility] Address [facility] [place] [address] Care Team Providers Care Conference Assistant Name Role Phone Alexandra Caceres DO Primary Care Provider Reason for Visit * Reason Onset Date Comments Other 11/13/2020 Encounter Details Date Type Department Care Team Description 11/13/2020 Telephone [facility] [address] [place], [place] [id number] Alexandra Caceres DO [address] [place] [address] [phone] Other Allergies Active Allergy Reactions Severity Noted [...] 120 Vial 11 10/02/2019 Active nystatin (NYSTOP) 947109 UNIT/GM powder Apply topically to affected area [...] 30 mL 3 08/31/2020 Active Dexcom G6 Upper Inspector Device Use as directed. To test [...] Strip 3 10/29/2020 Active OneTouch Delica Plus [id number] TESTING once daily 100 Each 3 10/29/2020 [...] pain 01/24/2012 01/17/2017 Genetic Sleep Disorder Research Other*[id number] 05/13/2011 04/07/2016 Obstructive sleep apnea 01/18/2011 12/27/19 [...] or bathing? 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-target network analyst helps 07/15/2020 Because of a physical, [...] nurse. Please advise. Thank you, Jennifer Lynch Under Sheriff [facility] 11/16/2020, 10:58 AM * Telephone Encounter - Marie Triplett OSA - 11/13/2020 4:15 PM EST Patient calling requesting help getting diabetic testing equipment? Strips? Transferred to Hellen at the RX line. documented in this encounter Plan of Treatment Upcoming Encounters Date Type Specialty Care Team Description 11/20/2020 Hem/Onc Treatment Hematology Oncology Mary[place], Chair 1 Hem Onc Scenery [address] [place] [address] [phone] 11/30/2020 Office Visit Family Medicine Alexandra Caceres, [address] [place] [address] [phone] 12/01/2020 Nutrition Services Gastroenterology Melissa Omalley, [place] [address] [place] [address] [phone] 12/04/2020 Hem/Onc Treatment Hematology Oncology [place], Chair 8 Hem Onc Scenery [address] [place] [address] [phone] 12/14/2020 Office Visit Pharmacy [facility] [address] [place], [place] [address] 12/18/2020 Hem/Onc Treatment Hematology Oncology [place], Chair [address] [place] [address] [phone] 01/01/2021 Office Visit Hematology Oncology Tono Sanchez MD [address] [place] [address] [phone] 01/21/2021 Office Visit Gastroenterology Lyssa Stout CRNP 132 [facility] [place] [address] [phone] 09/09/2021 Imaging Radiology Health Maintenance Due Date [...] this encounter Implants Implanted Type Area Manager Web Device Identifier Shelf Expiration Date Model / Serial / Lot Microtech Sure Clip Implanted:Qty: 2 on 06/03/2020 by Janis Hatch DO at OR [facility] Clip N/A: Colon 04/21/2022 [facility]-F-26-2 35-C-R / / [id number] documented as of this encounter Advance Directives Documents on File Type Date Recorded 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
--- OUTSIDE RECORDS SUMMARY | 2023-05-10 21:31 | External Medical Summary | Summary of Care ---
Author Name Unknown Organization [facility] Address [facility] [place] [address] Care Team Providers Care Crusher Setter Name Role Phone Alexandra Caceres DO Primary Care Provider Reason for Visit * Reason Onset Date Comments Other 11/13/2020 Encounter Details Date Type Department Care Team Description 11/13/2020 Telephone [facility] [address] [place], [place] [id number] Alexandra Caceres DO [address] [place] [address] [phone] Other Allergies Active Allergy Reactions Severity Noted [...] 120 Vial 11 10/02/2019 Active nystatin (NYSTOP) 395316 UNIT/GM powder Apply topically to affected area [...] mL 3 08/31/2020 Active Dexcom G6 Rn On Site Device Use as directed. To test blood [...] Strip 3 10/29/2020 Active OneTouch Delica Plus [id number] TESTING once daily 100 Each 3 10/29/2020 [...] pain 01/24/2012 01/17/2017 Genetic Sleep Disorder Research Other*[id number] 05/13/2011 04/07/2016 Obstructive sleep apnea 01/18/2011 12/27/19 [...] or bathing? 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-commissary helper helps 07/15/2020 Because of a physical, menta [...] nurse. Please advise. Thank you, Jennifer Lynch Pyroglazer [facility] 11/16/2020, 10:58 AM * Telephone Encounter - Marie Triplett OSA - 11/13/2020 4:15 PM EST Patient calling requesting help getting diabetic testing equipment? Strips? Transferred to Hellen at the RX line. documented in this encounter Plan of Treatment Upcoming Encounters Date Type Specialty Care Team Description 11/20/2020 Hem/Onc Treatment Hematology Oncology [place], Chair 1 Hem Onc Scenery 200 [facility] [place] [address] [phone] 11/30/2020 Office Visit Family Medicine Alexandra Caceres, [address] [place] [address] [phone] 12/01/2020 Nutrition Services Gastroenterology Melissa Omalley, [place] [address] [place] [address] [place] [address] [phone] 12/04/2020 Hem/Onc Treatment Hematology Oncology [place], Chair [address] 200 [facility] [place] [address] [phone] 12/14/2020 Office Visit Pharmacy [facility] [address] [place], [place] [phone] 12/18/2020 Hem/Onc Treatment Hematology Oncology [place], Chair [address] Hem Onc [address] 200 [facility] [place] [address] [phone] 01/01/2021 Office Visit Hematology Oncology Tono Sanchez MD 200 [place] [address] [phone] 01/21/2021 Office Visit Gastroenterology Lyssa Stout CRNP 132 [facility] [place] [address] [phone] 09/09/2021 Imaging Radiology Health Maintenance Due Date [...] of this encounter Implants Implanted Type Area Feeder Catcher Device Identifier Shelf Expiration Date Model / Serial / Lot Microtech Sure Clip Implanted:Qty: 2 on 06/03/2020 by Janis Hatch DO at OR [facility] Clip N/A: Colon 04/21/2022 [facility]-F-26-2 35-C-R / / [id number] documented as of this encounter Advance Directives Documents on File Type Date Recorded Patient Telephone Cleaner Expl anation Advanced Directive service a kerri [...]
--- OUTSIDE RECORDS SUMMARY | 2023-05-10 21:31 | External Medical Summary | Summary of Care ---
Author Name Unknown Organization [facility] [place] [address] Care Team Providers Care Software Reliability Engineer Name Role Phone Alexandra Caceres DO Primary Care Provider [phone] Encounter Details Date Type Department Care Team Description 08/19/2020 Telemedicine [facility] [address] [place] [address] Alexandra Caceres DO [address] [place], [place] [id number] Intermittent asthma with reliever use up to twice per week without complication*; Type 2 diabetes mellitus with hemoglobin A1c goal of less than 7.0% (HCC); Cirrhosis of liver without ascites, unspecified hepatic cirrhosis type (HCC); Pancytopenia (HCC) Allergies Active Allergy Reactions Severity [...] 120 Vial 11 10/02/2019 Active nystatin (NYSTOP) 390024 UNIT/GM powder Apply topically to affected area [...] AT BEDTIME 30 Tab 2 08/12/2020 Active Glucose Blood (BLOOD GLUCOSE TEST) STRP Use to test once per day. 100 Strip 3 11/19/2019 09/28/19 21 Discontinued Lancets MISC Use to test once per day. 100 Each 3 11/19/2019 09/28/19 21 Discontinued levothyroxine (LEVOXYL) 200 MCG Tablet Take 1 Tab by mouth daily. 90 Tab 3 02/20/2020 11/02/19 21 Discontinued oxybutynin (DITROPAN) 5 MG Tablet TAKE 1 TABLET BY MOUTH TWICE DAILY 60 Tab 5 03/27/2020 10/08/19 21 Discontinued tamsulosin (FLOMAX) 0.4 MG Capsule TAKE 1 CAPSULE BY MOUTH ONCE DAILY 90 Cap 1 04/22/2020 10/08/19 21 Discontinued nadolol (CORGARD) 20 MG Tablet TAKE 2 TABLETS BY MOUTH ONCE DAILY 180 Tab 1 05/12/2020 09/19/19 21 Discontinued(Ref ill) gabapentin (NEURONTIN) 300 MG Capsule TAKE 1 CAPSULE BY MOUTH IN THE MORNING, 1 CAPSULE MIDDAY, AND 2 CAPSULES IN THE EVENING 180 Cap 2 05/21/2020 10/08/19 21 Discontinued Continuous Blood Gluc Sensor (FREESTYLE XOCHITL 2 SENSOR SYSTM) [facility] Freestyle Xochitl 2 14-day Sensor (931883) (2 sensors=28 day/1-month supply) 2 Each 1 05/26/2020 08/25/20 20 Discontinued(Ref ill) Continuous Blood Gluc Vice President Of Compliance (FREESTYLE XOCHITL 2 READER SYSTM) [place] Freestyle Xochitl 2 14-day Vice President Of Compliance (584826) 1 Package 0 05/26/2020 09/14/19 21 Discontinued Trulicity 1.5 MG/0.5ML Subcutaneous Solution Pen-injector (Dulaglutide)Connie cations:Type 2 diabetes mellitus with hemoglobin A1c goal of less than 7.0% (HCC) Inject 1.5mg (one pen) under the skin once weekly 6 mL 3 06/12/2020 11/02/19 21 Discontinued Lantus SoloStar 100 UNIT/ML Subcutaneous Solution Pen-injector (insulin glargine)Indicati ons:Type 2 diabetes mellitus with hemoglobin A1c goal of less than 7.0% (HCC) Inject 30 units under the skin once a day 30 mL 3 06/19/2020 08/31/20 20 Discontinued Insulin Aspart 100 UNIT/ML Subcutaneous Solution (NovoLOG) Inject 26 units under the skin before breakfast, 26 units before lunch, and 30 units before supper 60 mL 3 08/08/2020 08/31/20 20 Discontinued documented as of this encounter (statuses [...] pain 01/24/2012 01/17/2017 Genetic Sleep Disorder Research Other*[id number] 05/13/2011 04/07/2016 Obstructive sleep apnea 01/18/2011 12/27/19 [...] or bathing? 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-community engagement representative helps 07/15/2020 Because of a physical, menta [...] this encounter Progress Notes * Alexandra Caceres, DO - 08/19/2020 12:03 PM EST After connecting to the patient via telephone, the patient was identified by name and date of . Patient was then informed that this was a telephone call only visit. The patient agreed to participate. Visit Disposition: Routine follow-up--3 months. Total call duration was 12 minutes. Time call started: 12:13 and ended at 12:25 Subjective: Shaina Bustos is a 65 year old female. No chief complaint on file. HPI: 65 year old female with complicated medical hx, she carries hx of type 2 diabetes, Pancytopenia, Cirrhosis of the liver, splenomegaly, Esophageal varices, and Asthma. She was in the ER on Monday night for RLQ pain. CT scan showed no pathology. She was dced. She is moving her bowels, and no blood in her stool. She will be getting another Venofer treatment this Monday. She is then to see Hematology about 5 weeks After her treatment. She uses [facility] [place] [facility] for her oxygen supplier. She uses only oxygen at night. Today she sounds short of breath. She was laying flat. She is non ambulatory, is wheelchair bound. She has not used a neb treatment today Update 11/16/20 Hx of uncontrolled type 2 diabetes, addendum 11/16/20: Patient is injecting insulin 4 times a day andtesting blood sugars 4 times a day PHM: Patient Active Problem List Diagnosis Code Venous insufficiency I87.2 Spinal stenosis of lumbar region without neurogenic claudication M48.061 Cerebral palsy ([facility]) G80.9 HTN, goal below 140/90 [...] than 7.0% ([facility]) E11.9 Vitamin D deficiency E55.9 Restrictive lung disease J98.4 Obesity, morbid (more than 100 lbs over ideal weight or BMI > 40) ([facility]) E66.01 Dyslipidemia, goal LDL below 70 E78.5 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 R39.81 Acquired hypothyroidism E03.9 Chronic pain syndrome G89.4 MEDICATION USE AGREEMENT [id number] Cirrhosis of liver ([facility]) K74.60 THAD on CPAP G47.33, Z99.89 Wheelchair dependent Z99.3 Pancytopenia ([facility]) D61.818 Ambulatory dysfunction R26.2 DM type 2 with diabetic peripheral neuropathy ([facility]) E11.42 Insomnia G47.00 Recurrent major depressive disorder, in partial remission ([facility]) F33.41 Impaired mobility and ADLs Z74.09, Z78.9 Generalized weakness R53.1 Gastroesophageal reflux disease K21.9 History of Achilles tendon repair Z98.890 Anemia D64.9 Fibromyalgia M79.7 Achilles tendinitis, right leg M76.61 DNR (do not resuscitate) Z66 Thrombocytopenia ([facility]) D69.6 Iron deficiency anemia due to chronic blood loss D50.0 Splenomegaly R16.1 Cellulitis of right lower extremity L03.115 Cellulitis of right toe L03.031 Diabetic ulcer of right great toe (HCC) E11.621, L97.519 Bacteremia R78.81 Acute blood loss anemia D62 Esophagitis K20.90 Esophageal varices ([facility]) I85.00 Uncontrolled type 2 diabetes mellitus with hyperglycemia ([facility]) E11.65 Current Outpatient Medications Medication Sig Dispense Refill Cyclobenzaprine HCl 10 MG Oral Tablet (FLEXERIL) TAKE 1 TABLET BY MOUTH AT BEDTIME 30 Tab 2 Insulin Aspart 100 UNIT/ML Subcutaneous Solution (NovoLOG) Inject 26 units under the skin before breakfast, 26 units before lunch, and 30 units before supper 60 mL 3 Fluticasone-Salmeterol 250-50 MCG/DOSE Inhalation Aerosol [...] four times daily; E11.42 400 Each 3 Lantus SoloStar 100 UNIT/ML Subcutaneous Solution Pen-injector (insulin glargine) Inject 30 units under the skin once a day (Patient taking differently: Inject 35 units under the skin once a day) 30 mL 3 Trulicity 1.5 MG/0.5ML Subcutaneous Solution Pen-injector (Dulaglutide) Inject 1.5mg (one pen) under the skin once weekly 6 mL 3 famotidine (PEPCID) 20 MG Tablet Take 1 Tab by mouth every night at bedtime. 34 Tab 0 Continuous Blood Gluc Vice President Of Compliance (FREESTYLE XOCHITL 2 READER SYSTM) [place] Freestyle Xochitl 2 14-day Vice President Of Compliance (368802) 1 Package 0 Continuous Blood Gluc Sensor (FREESTYLE XOCHITL 2 SENSOR SYSTM) MISC Freestyle Xochitl 2 14-day Sensor (728898) (2 sensors=28 day/1-month supply) 2 Each 1 silver sulfadiazine (SILVADENE) 1 % cream Apply topically to affected area daily. Apply to right great toe 50 g 0 potassium chloride ER 10 MEQ TBCR TAKE 1 TABLET BY MOUTH ONCE DAILY WITH FOOD 90 Tab 3 escitalopram (LEXAPRO) 20 MG Tablet TAKE 1 TABLET BY MOUTH ONCE DAILY 90 Tab 1 gabapentin (NEURONTIN) 300 MG Capsule TAKE 1 CAPSULE BY MOUTH IN THE MORNING, 1 CAPSULE MIDDAY, AND2 CAPSULES IN THE EVENING 180 Cap 2 traZODone (DESYREL) 50 MG Tablet TAKE 1 TABLET BY MOUTH AT BEDTIME 90 Tab 1 nadolol (CORGARD) 20 MG Tablet TAKE 2 TABLETS BY MOUTH ONCE DAILY 180 Tab 1 linaCLOtide (LINZESS) 290 MCG Capsule Take 1 Cap by mouth daily before breakfast. 90 Cap 3 tamsulosin (FLOMAX) 0.4 MG Capsule TAKE 1 CAPSULE BY MOUTH ONCE DAILY 90 Cap 1 oxybutynin (DITROPAN) 5 MG Tablet TAKE 1 TABLET BY MOUTH TWICE DAILY 60 Tab 5 levothyroxine (LEVOXYL) 200 MCG Tablet Take 1 Tab by mouth daily. 90 Tab 3 Blood Glucose Monitoring Suppl (BLOOD GLUCOSE MONITOR SYSTEM) w/Device KIT Use to test once per day. 1 Kit 0 Glucose Blood (BLOOD GLUCOSE TEST) STRP Use to test once per day. 100 Strip 3 Lancets MISC Use to test once per day. 100 Each 3 Albuterol Sulfate (ALBUTEROL HFA) 108 (90 BASE) MCG/ACT inhaler Inhale 2 Puffs by mouth every 4 hours as needed for Cough or Wheezing. With spacer 16 g 1 nystatin (NYSTOP) 174888 UNIT/GM powder Apply topically to affected area [...] Protein A Microsph Definity-lower back pain Objective: There were no vitals taken for this visit. Physical Exam: General: she had conversational dyspnea. She was laying flat, and I did hear wheezing on the phone. ASSESSMENT/PLAN: Intermittent asthma with reliever use up to twice per week without complication (Primary) Encouraged pt to use her neb treatment today. Will have nursing call [facility] about her wearing oxygen during the day. Although I am not sure her insurance will pay for this. As she is not able to do a ambulatory pulse ox. I feel that wearing oxygen all day will help her breath better.She has asthma, obesity, and severe anemia that I believe are all contributory to her shortness of breath. Type 2 diabetes mellitus with hemoglobin A1c goal of less than 7.0% (HCC) Stable. Cirrhosis of liver without ascites, unspecified hepatic cirrhosis type (HCC) Stable for now. Pancytopenia (HCC) Following with hematology. Follow Up: Return in about 3 months (around 11/17/2020). Alexandra Caceres DO documented in this encounter Plan of Treatment Upcoming Encounters Date Type Specialty Care Team Description 11/20/2020 Hem/Onc Treatment Hematology Oncology [place], Chair 1 Hem Onc Scenery [address] [facility] [place] [address] [phone] 11/30/2020 Office Visit Family Medicine Alex[facility]res [facility] [address] [facility] [address] [phone] 12/01/2020 Nutrition Services Gastroenterology Melissa [place]mal[place], [place] [address] [facility] [place] [address] [phone] 12/04/2020 Hem/Onc Treatment Hematology Oncology [place], Chair 8 Hem Onc Scen[address] [facility] [address] [phone] 12/14/2020 [facility] [address] [facility] [address] [phone] 12/18/2020 Hem/Onc Treatment Hematology Oncology [place], Chair 7 Hem Onc [facility] [address] [facility] [address] [phone] 01/01/2021 Office Visit Hematology Oncology Tono Sanchez MD 200 [facility] [place] [address] [phone] 01/21/2021 Office Visit Gastroenterology Lyssa Stout CRNP [address] [facility] [place] [address] [phone] 09/09/2021 Imaging Radiology Health Maintenance Due Date [...] this encounter Implants Implanted Type Area Assistant Softball Coach Device Identifier Shelf Expiration Date Model / Serial / Lot Microtech Sure Clip Implanted:Qty: 2 on 06/03/2020 by Janis aHtch DO at OR [facility] Clip N/A: Colon 04/21/2022 [facility]-F-26-2 35-C-R / / [id number] documented as of this encounter Visit Diagnoses Diagnosis Intermittent asthma with reliever use up to twice per week without complication- Primary Type 2 diabetes mellitus with hemoglobin A1c goal of less than 7.0% (HCC) Cirrhosis of liver without ascites, unspecified hepatic cirrhosis type (HCC) Pancytopenia (HCC) Other pancytopenia documented in this encounter Advance Directives Documents on File Type Date Recorded Patient Team Assembler Expl anation Advanced Directive service a [...]
--- OUTSIDE RECORDS SUMMARY | 2023-05-10 21:32 | External Medical Summary | Summary of Care ---
Author Name Unknown Organization [facility] Address [facility] [place] [address] Care Team Providers Care Methane Gas Collection System Operator Name Role Phone Alexandra Caceres DO Primary Care Provider Reason for Visit * Reason Onset Date Comments Advice 10/15/2020 Encounter Details Date Type Department Care Team Description 10/15/2020 Telephone [facility] [address], [place] [id number] Alexandra Caceres DO [address] [place] [address] [phone] Advice Allergies Active Allergy Reactions Severity Noted Date Comments Adhesive Tape Itching 04/29/2020 Penicillins Rash 02/12/2008 Perflutren Protein A Microsph 2019 Definity-lower back pain documented as of this encounter (statuses as of 11/13/2020) Medications Medication Sig Dispensed Refills Start Date [...] 120 Vial 11 10/02/2019 Active nystatin (NYSTOP) 179485 UNIT/GM powder Apply topically to affected area [...] 30 mL 3 08/31/2020 Active Dexcom G6 Data Operations Leader Device Use as directed. To test [...] 09/17/2020 11/02/19 21 Discontinued OneTouch Delica Plus [id number] TESTING once daily 100 Each 3 09/28/2020 [...] as of this encounter (statuses as of 11/13/2020) Active Problems Problem Noted Date Uncontrolled type [...] as of this encounter (statuses as of 11/13/2020) Resolved Problems Problem Noted Date Resolved Date [...] pain 01/24/2012 01/17/2017 Genetic Sleep Disorder Research Other*[id number] 05/13/2011 04/07/2016 Obstructive sleep apnea 01/18/2011 12/27/19 [...] as of this encounter (statuses as of 11/13/2020) Immunizations Name Administration Dates Next Due HEP [...] or bathing? 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-fitter welder helps 07/15/2020 Because of a physical, menta [...] Miscellaneous Notes * Telephone Encounter - Nany Perez, radiographic technologist - 11/13/2020 4:32 PM EST Pt calling to inform doctor she has not received her rx for Dexcom [place], Sensors, or transmitter.Pt states she does not liking pricking her finger. Pt is concerned about testing her sugar. Please advise. Thank you, Nany Perez T Sales Planning Analyst [facility] 11/13/2020, 4:32 PM * Telephone Encounter - Michaelle Lindquist LPN - 10/27/2020 2:15 PM EST Forms completed through [place] * Telephone Encounter - Deepali Ortiz OSA [...] call to verified if fax was received: [phone] * Telephone Encounter - Michaelle Lindquist LPN - 10/20/2020 1:12 PM EST Noted * Telephone Encounter - Christopher Garcia OSA - 10/20/2020 12:43 PM EST Pt states [employer] [facility] [employer] ([id number]) is going to be contact Dr. Caceres with the information to on it. PCP will need to fill it out and send it back so she can get her supplies. * Telephone Encounter - Indira Hudson [facility] - 10/15/2020 2:15 PM EST Patient Phone Numbers Called and spoke with patient. Patient reports she currently has Xochitl but will be getting Dexcom. Patient will bring Dexcom to next [facility] appt and will review in more detail. Reviewed that Xochitl sensor needs to be changed every 14 days and Dexcom sensor needs to be changed every 10 days. She verbalized understanding. Will follow-up at inperson [facility] appt on 11/02 Indira Hudson RPh, [...] was never told that Could someone from [facility] call her regarding her Dexcom Please advise * Telephone Encounter - Jaci Bangura CPhT - 10/15/2020 10:32 AM EST Patient calling to request a order for Dexcom G6 Sensor , she received 1 in the middle of September in the mail , not sure where it is coming from please advise patient if there is currently a order placed [phone] Jaci Jiang Senior Account Executive II Pharmacy Refill Call Center 110:35 AM documented in this encounter Plan of Treatment Upcoming Encounters Date Type Specialty Care Team Description 11/20/2020 Hem/Onc Treatment Hematology Oncology [place], Chair 1 Hem Onc Scenery [address] [place] [facility] [place] [address] [phone] 11/30/2020 Office Visit Family Medicine Alexandra Caceres, [address] [facility] [place] [address] 12/01/2020 Nutrition Services Gastroenterology Melissa Omalley, SAMANTHA [address] [place] [address] [place] [address] 12/04/2020 Hem/Onc Treatment Hematology Oncology [place], Chair 8 Hem Onc Scenery 200 [facility] [place] [address] [phone] 12/14/2020 Office Visit Pharm[place], [facility] [address] [place] [address], [place] [address] [phone] 12/18/2020 Hem/Onc Treatment Hematology Oncology [place], Chair 7 Hem Onc Scenery [address] [place], [place] [address] [phone] 01/01/2021 Office Visit Hematology Oncology Tono Sanchez MD 200 [facility], [place] [address] [phone] 01/21/2021 Office Visit [facility]astroenterology [facility]out [facility] [address] [facility] [address] [phone] 09/09/2021 Imaging Radiology Health Maintenance Due Date [...] of this encounter Implants Implanted Type Area Welder Repair Device Identifier Shelf Expiration Date Model / Serial / Lot Microtech Sure Clip Implanted:Qty: 2 on 06/03/2020 by Janis Hatch DO at OR [facility] Clip N/A: Colon 04/21/2022 ROCC-F-26-2 35-C-R / / [id number] documented as of this encounter Advance Directives Documents on File Type Date Recorded Patient Wilton Weaver Expl anation Advanced Directive service a ekrri default Advanced Directive Advanced Directive Advanced Directive [...]
--- OUTSIDE RECORDS SUMMARY | 2023-05-10 21:32 | External Medical Summary | Summary of Care ---
Author Name Unknown Organization [facility] [place] [address] Care Team Providers Care Computer Repair Instructor Name Role Phone NikAlexandra fernandez Daihsa MORENO Primary Care Provider [phone] Reason for Visit * Reason Onset Date Comments Advice 09/14/2020 Encounter Details Date Type Department Care Team Description 09/14/2020 Telephone Pharmacy, [place] [address] [place] [address] [facility] [address] [place] [address] [phone] Advice Allergies Active Allergy Reactions Severity Noted [...] 120 Vial 11 10/02/2019 Active nystatin (NYSTOP) 709853 UNIT/GM powder Apply topically to affected area [...] 30 mL 3 08/31/2020 Active Dexcom G6 Automotive Refinisher Device Use as directed. To test blood [...] Dx E11.9 1 Each 3 09/14/2020 Active Glucose Blood (BLOOD GLUCOSE TEST) STRP [...] 05/21/2020 10/08/19 21 Discontinued Continuous Blood Gluc Automotive Refinisher (VCNCYLE XOCHITL 2 READER SYSTM) KORTNEY Freestyle Xochitl 2 14-day Automotive Refinisher ([id number]) 1 Package 0 05/26/2020 09/14/19 21 Discontinued Trulicity 1.5 MG/0.5ML Subcutaneous Solution Pen-injector (Dulaglutide)Connie cations:Type 2 diabetes mellitus with hemoglobin A1c goal of less than 7.0% ([place] [facility]) Inject 1.5mg (one pen) under the skin once weekly 6 mL 3 06/12/2020 11/02/19 21 Discontinued Insulin Aspart 100 UNIT/ML Subcutaneous Solution (NovoLOG) Inject 28 units under the skin before breakfast, 28 units before lunch, and 28 units before supper 60 mL 3 08/31/2020 11/02/19 21 Discontinued FreeStyle Xochitl 2 Sensor Systm Use to test blood sugars 4 times a day Dx E11.9 6 Each 3 09/08/2020 09/14/19 21 Discontinued NovoLOG FlexPen 100 UNIT/ML Subcutaneous Solution Pen-injector (insulin aspart) INJECT 12 UNITS UNDER THE SKIN THREE TIMES A DAY BEFORE MEALS. PLUS COVER MEALS WITH THE FOLLOWING SLIDING SCALE: 80-150 (O UNITS); 151-200 (2 UNITS); 201-250 (4 UNITS); 251-300 (6 UNITS) 15 mL 0 09/14/2020 09/17/19 21 Discontinued documented as of this encounter [...] pain 01/24/2012 01/17/2017 Genetic Sleep Disorder Research Other*[id number] 05/13/2011 04/07/2016 Obstructive sleep apnea 01/18/2011 12/27/19 [...] t, with Preserve, 3yr & Above, Split 05/22/2015,05/29/2014,07/25/2013,05/12,06/02/2011,06/01/2010,09,08/18/2008 05/22/2016 TDAP (age 10 and older)(Boostrix) [...] or bathing? 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-highway patrol officer helps 07/15/2020 Because of a physical, menta [...] Notes * Telephone Encounter - Nany Perez, newspaper vendor - 11/13/2020 4:19 PM EST Pt calling to check the rx for dexcom. Encounter continued in another encounter open 10/15/2020. Thank you, Nany Perez [facility] Resource Room Teacher [facility] 11/13/2020, 4:26 PM * Telephone Encounter - Indira Hudson RPh - 09/14/2020 3:00 PM EST Received following message: "Everytime patient goes to any appointments, they try to lift her by her arms which keep knocking off her sensor units off for her freestyle josh. Patient's sister calling in because they think that the dexcom G6 may be a better fit, because she doesn't lay on her side or her stomach and it wouldn't be in the way of people picking her up or putting her coat on.\\. If not, she is asking if more units could be added to the rx,Pharmacy is currently waiting on preauthorization for more units because she gets 2 per month and the patient has currently been without for 2 weeks because they all have gotten used since they keep getting knocked off. Please advise." Patient Phone Numbers Called and spoke with patient and caregiver, Luma. Discussed with patient again that we can have her place the Xochitl sensor on her stomach, although not recommended via package insert, xochitl sales representative health insurance says it can be done if the issue is sticking or ability to apply the patch. Patient prefers at this time to try Dexcom so sent prescriptions to the pharmacy for Dexcom G6 (manager recruiting, transmitter, sensors). Patient's sister uses Dexcom so patient reports will have her help herwith it. They will contact clinic with any issues. Will follow-up as previously scheduled. Indira Hudson RPh, Pharm D, BCACP Clinical Pharmacist 09/14/20 2:29 PM documented in this encounter Plan of Treatment Upcoming Encounters Date Type Specialty Care Team Description 11/20/2020 Hem/Onc Treatment Hematology Oncology [place], Chair 1 Hem Onc Scenery [address] [place], [place] [address] 11/30/2020 Office Visit Family Medicine Alexandra Caceres, DO [address] [place] [address] [phone] 12/01/2020 Nutrition Services Gastroenterology Melissa Omalley, [place] [address] [place] [address] [place] [address] [phone] 12/04/2020 Hem/Onc Treatment Hematology Oncology [place], Chair 8 Hem Onc Scenery 200 [facility], [place] [address] [phone] 12/14/2020 Office Visit Pharmacy [facility] [address], [place] [address] 12/18/2020 Hem/Onc Treatment Hematology Oncology [place], Chair 7 Hem Onc Scenery [address] [facility], [place] [address] [phone] 01/01/2021 Office Visit Hematology Oncology Tono Sanchez MD 200 [place] [address] [phone] 01/21/2021 Office Visit Gastroenterology Lyssa Stout CRNP [address] [facility] [place] [address] [phone] 09/09/2021 Imaging Radiology Health Maintenance Due Date [...] of this encounter Implants Implanted Type Area Transmitter Tester Device Identifier Shelf Expiration Date Model / Serial / Lot Microtech Sure Clip Implanted:Qty: 2 on 06/03/2020 by Janis Hatch DO at OR [facility] Clip N/A: Colon 04/21/2022 [facility]-F-26-2 35-C-R / / [id number] documented as of this encounter Advance Directives Documents on File Type Date Recorded Patient Outside Cutter Hand Expl anation Advanced Directive service a [...]
--- OUTSIDE RECORDS SUMMARY | 2023-05-10 21:32 | External Medical Summary | Summary of Care ---
Author Name Unknown Organization [facility] Address [facility] [place] [address] Care Team Providers Care Distributed Generation Project Manager Name Role Phone Alexandra Caceres DO Primary Care Provider Reason for Visit * Reason Onset Date Comments Other 11/13/2020 Encounter Details Date Type Department Care Team Description 11/13/2020 Telephone [facility] [address] [place], [place] [id number] Alexandra Caceres DO [address] [place] [address] [phone] Other Allergies Active Allergy Reactions Severity Noted [...] 120 Vial 11 10/02/2019 Active nystatin (NYSTOP) 947698 UNIT/GM powder Apply topically to affected area [...] mL 3 08/31/2020 Active Dexcom G6 Veterinary Technologist Device Use as directed. To test blood [...] Strip 3 10/29/2020 Active OneTouch Delica Plus [id number] TESTING once daily 100 Each 3 10/29/2020 [...] pain 01/24/2012 01/17/2017 Genetic Sleep Disorder Research Other*[id number] 05/13/2011 04/07/2016 Obstructive sleep apnea 01/18/2011 12/27/19 [...] or bathing? 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-stage hand helps 07/15/2020 Because of a physical, menta [...] Miscellaneous Notes * Telephone Encounter - Marie Triplett OSA - 11/13/2020 4:15 PM EST Patient calling requesting help getting diabetic testing equipment? Strips? Transferred to [facility] at the RX line. documented in this encounter Plan of Treatment Upcoming Encounters Date Type Specialty Care Team Description 11/20/2020 Hem/Onc Treatment Hematology Oncology [place], Chair 1 Hem Onc Scenery [address] [facility] [address] [phone] 11/30/2020 Office Visit Family Medicine [facility] [address] [facility] [address] 12/01/2020 Nutrition Services Gastroenterology Melissa Omalley, RDN [address] [place] [address] [phone] 12/04/2020 Hem/Onc Treatment Hematology Oncology [place], Chair 8 Hem Onc Scenery [address] [facility] [place] [address] [phone] 12/14/2020 Office Visit [facility] [address] [facility] [address] [phone] 12/18/2020 Hem/Onc Treatment Hematology Oncology [place], Chair 7 Hem Onc Scenery [address] [facility] [place] [address] [phone] 01/01/2021 Office Visit Hematology Oncology Tono Sanchez MD 200 [facility], [place] [address] [phone] 01/21/2021 Office Visit Gastroenterology Lyssa Stout CRNP [address] [facility] [address] [phone] 09/09/2021 Imaging Radiology Health Maintenance Due Date [...] this encounter Implants Implanted Type Area Internet Site Designer Device Identifier Shelf Expiration Date Model / Serial / Lot Microtech Sure Clip Implanted:Qty: 2 on 06/03/2020 by Janis Hatch DO at OR [facility] Clip N/A: Colon 04/21/2022 [facility]-F-26-2 35-C-R / / [id number] documented as of this encounter Advance Directives Documents on File Type Date Recorded 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
--- OUTSIDE RECORDS SUMMARY | 2023-05-10 21:32 | External Medical Summary | Summary of Care ---
Author Name Unknown Organization [facility] Address [place] [address] Care Team Providers Care Metal Cutter Name Role Phone Alexandra Caceres Primary Care Provider [phone] Reason for Visit * Reason Comments Urinary Tract Infection Symptoms urinati ng little at a time Other deep ratling in her chest Loss of Appetite Encounter Details Date Type Department Care Team Description 11/13/2020 Office Visit [facility] [address] [place] [address] Vanita Dunn MD [address] [place] [address] [phone] Fever, unspecified fever cause*; Polyuria Allergies Active [...] 120 Vial 11 10/02/2019 Active nystatin (NYSTOP) 120081 UNIT/GM powder Apply topically to affected area [...] 30 mL 3 08/31/2020 Active Dexcom G6 Well Service Derrick Worker Device Use as directed. To test [...] TO ACCESSING. 30 g 3 10/09/2020 Active LiveHiveio In Vitro Strip (Glucose Blood) TESTING once daily 100 Strip 3 10/29/2020 Active OneTouch Delica Plus Drxeie35B TESTING once daily 100 Each 3 10/29/2020 [...] pain 01/24/2012 01/17/2017 Genetic Sleep Disorder Research Other*[id number] 05/13/2011 04/07/2016 Obstructive sleep apnea 01/18/2011 12/27/19 [...] bathing? 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-manager call helps 07/15/2020 Because of a physical, menta [...] skin once a week 6 mL 3 Life360uch Delica Plus [id number] TESTING once daily 100 Each 3 OneTouch Verio In Vitro Strip (Glucose Blood) TESTING once daily 100 Strip 3 Lidocaine-Prilocaine 2.5-2.5 % External Cream (Emla) Apply topically to affected area as needed forOther (for port). APPLY TO SKIN OVER MEDIPORT & COVER 1HR PRIOR TO ACCESSING. 30 g 3 Nadolol 20 MG Oral Tablet (CORGARD) One daily 90 Tab 1 Dexcom G6 Well Service Derrick Worker Device Use as directed. To test [...] With spacer 16 g 1 nystatin (NYSTOP) 318684 UNIT/GM powder Apply topically to affected area [...] Normal affect. Fluent speech. Vanita Dunn MD [address] [address] documented in this encounter Plan of Treatment Upcoming Encounters Date Type Specialty Care Team Description 11/20/2020 Hem/Onc Treatment Hematology Oncology [place], Chair 1 Hem Onc Scenery [address] [place] [address] [phone] 11/30/2020 Office Visit Family Medicine Alexandra Caceres, [address] [place] [address] [phone] 12/01/2020 Nutrition Services Gastroenterology Melissa Omalley, [place] [address] [facility] [place] [address] [phone] 12/04/2020 Hem/Onc Treatment Hematology Oncology [place], Chair 8 Hem Onc Scenery 200 [facility] [place] [address] [phone] 12/14/2020 Office Visit Pharmacy [facility] [address] [place], [place] [address] 12/18/2020 Hem/Onc Treatment Hematology Oncology [place], Chair 7 Hem Onc Scenery [address] [place] [address] [phone] 01/01/2021 Office Visit Hematology Oncology Tono Sanchez MD 200 [place] [address] [phone] 01/21/2021 Office Visit Gastroenterology Lyssa Stout CRNP 132 [place] [address] [phone] 09/09/2021 Imaging Radiology Scheduled Orders Name Type Priority Associated Diagnoses Orde r Schedule XR CHEST 1 VIEW Medical Imaging Routine Fever, unspecified fever cause Ordered: 11/13/2020 Health Maintenance Due Date Last Done Comments [...] of this encounter Implants Implanted Type Area Cork Insulation Setter Device Identifier Shelf Expiration Date Model / Serial / Lot Microtech Sure Clip Implanted:Qty: 2 on 06/03/2020 by Janis Hatch DO at OR [facility] Clip N/A: Colon 04/21/2022 [facility]-F-26-2 35-C-R / / [id number] documented as of this encounter Visit Diagnoses Diagnosis Fever, unspecified fever cause- Primary Polyuria documented in this encounter Advance Directives Documents on File Type Date Recorded Patient Verification Manager Expl anation Advanced Directive service a [...]
--- OUTSIDE RECORDS SUMMARY | 2023-05-10 21:33 | External Medical Summary | Summary of Care ---
Author Name Unknown Organization [place] [address] Care Team Providers Care Manager Clinical Research Name Role Phone Alexandra Caceres DO Primary Care Provider Reason for Visit * Reason Onset Date Comments Fax 10/28/2020 Encounter Details Date Type Department Care Team Description 10/28/2020 Telephone [facility] [address], [place] [id number] Alexandra Caceres DO [address] [place], [place] [phone] Fax Allergies Active Allergy Reactions Severity Noted Date Comments Adhesive Tape Itching 04/29/2020 Penicillins Rash 02/12/2008 Perflutren Protein A Microsph 2019 Definity-lower back pain documented as of this encounter (statuses as of 11/10/2020) Medications Medication Sig Dispensed Refills Start Date [...] 120 Vial 11 10/02/2019 Active nystatin (NYSTOP) 493174 UNIT/GM powder Apply topically to affected area [...] 30 mL 3 08/31/2020 Active Dexcom G6 Nurse Gynecology Device Use as directed. To test blood [...] once daily 100 Strip 3 10/29/2020 Active MediSensTouch Delica Plus [id number] TESTING once daily 100 Each 3 10/29/2020 Active levothyroxine (LEVOXYL) 200 MCG Tablet Take [...] 09/17/2020 11/02/19 21 Discontinued OneTouch Delica Plus [id number] TESTING once daily 100 Each 3 09/28/2020 [...] as of this encounter (statuses as of 11/10/2020) Active Problems Problem Noted Date Uncontrolled type [...] as of this encounter (statuses as of 11/10/2020) Resolved Problems Problem Noted Date Resolved Date [...] pain 01/24/2012 01/17/2017 Genetic Sleep Disorder Research Other*[id number] 05/13/2011 04/07/2016 Obstructive sleep apnea 01/18/2011 12/27/19 [...] as of this encounter (statuses as of 11/10/2020) Immunizations Name Administration Dates Next Due HEP [...] or bathing? 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-order desk caller helps 07/15/2020 Because of a physical, menta [...] Telephone Encounter - Michaelle Lindquist LPN - 11/10/2020 12:19 PM EST I called advance spoke with Cassie she states she will re fax form to be completed. The form has nothing to do with insulin.It is for the Dexcom. * Telephone Encounter - Cass Penaloza OSA - 11/10/2020 9:22 AM EST Patient calling in to check on the status of previous message. She states that she talked to someone previously and did sign some forms. She states it is for her insulin shots and needed the supplies, but hasn't heard anything. Please advise, thank you. * Telephone Encounter - Syed León OSA - 10/30/2020 3:35 PM EST [employer] [facility] [employer] calling in to check on the status of previous message. * Telephone Encounter - Keyonna Barillas LPN - 10/28/2020 3:36 PM EST FAX REFILL PROCESS: Last Office/Telemedicine Visit: 08/27/2020 Next Office Visit: 11/30/2020 Scheduled Provider(s): Alexandra Caceres DO Date of last refill for this med: 09/24/20 PCP: Alexandra Caceres DO Patient Active Problem List Diagnosis Code Venous [...] less than 7.0% ([facility]) E11.9 Vitamin D deficiency E55.9 Restrictive lung disease J98.4 Obesity, morbid (more than 100 lbs over ideal weight or BMI > 40) ([facility]) E66.01 Dyslipidemia, goal LDL below 70 E78.5 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 R39.81 Acquired hypothyroidism E03.9 Chronic pain syndrome G89.4 MEDICATION USE AGREEMENT [id number] Cirrhosis of liver ([facility]) K74.60 THAD on CPAP G47.33, Z99.89 Wheelchair dependent Z99.3 Pancytopenia ([facility]) D61.818 Ambulatory dysfunction R26.2 DM type 2 with diabetic peripheral neuropathy ([facility]) E11.42 Insomnia G47.00 Recurrent major depressive disorder, in partial remission ([facility]) F33.41 Impaired mobility and ADLs Z74.09, Z78.9 Generalized weakness R53.1 Gastroesophageal reflux disease K21.9 History of Achilles tendon repair Z98.890 Anemia D64.9 Fibromyalgia M79.7 Achilles tendinitis, right leg M76.61 DNR (do not resuscitate) Z66 Thrombocytopenia ([facility]) D69.6 Iron deficiency anemia due to chronic blood loss D50.0 Splenomegaly R16.1 Cellulitis of right lower extremity L03.115 Cellulitis of right toe L03.031 Diabetic ulcer of right great toe ([facility]) E11.621, L97.519 Bacteremia R78.81 Acute blood loss anemia D62 Esophagitis K20.90 Esophageal varices ([facility]) I85.00 Uncontrolled type 2 diabetes mellitus with hyperglycemia ([facility]) E11.65 LABS: Lab Results Component Value Date/Time CREATININE - [facility] 0.6 09/24/2020 05:16 PM CREATININE, RANDOM URINE - [facility] 115 01/11/2019 01:29 PM CREATININE-OUTSIDE LAB 0.77 08/24/2018 Lab Results Component Value Date/Time POTASSIUM - [facility] 4.0 09/24/2020 05:16 PM POTASSIUM-OUTSIDE LAB 4.1 08/24/2018 Lab Results Component Value Date/Time TSH - [facility] 0.69 07/14/2020 04:24 PM TSH - OUTSIDE LAB 0.725 08/24/2018 Lab Results Component Value Date/Time LDL CHOLESTEROL (CALCULATED) - [facility] 43 04/05/2019 06:40 AM LDL CHOLESTEROL (CALCULATED) - [facility] 57 05/05/2016 10:19 AM LDL CHOLESTEROL (DIRECT MEASURE) - [facility] 46 02/21/2020 11:43 AM LDL CHOLESTEROL (DIRECT MEASURE) - [facility] 57 10/11/2017 01:18 PM Lab Results Component Value Date/Time ALT - [facility] 23 08/21/2020 04:35 PM Hemoglobin AIC Results: Lab Results Component Value Date/Time HEMOGLOBIN A1C - [facility] 9.9 (H) 07/06/2020 05:24 AM HEMOGLOBIN A1C - [facility] 11.0 (H) 05/26/2020 04:44 AM HEMOGLOBIN A1C - [facility] 9.9 (H) 04/28/2020 04:37 PM * Telephone Encounter - Zoe Balderas OSA - 10/28/2020 10:54 AM EST Received a call asking if fax was received by office. Name/Company sending fax: [employer] What fax is pertaining to: Testing supplies Date(s) they sent request: 10/23/20 and 10/28/20 Verified fax number they are sending to is correct (Y or N): yes Callback Number for the clinic to call to verified if fax was received: [phone] documented in this encounter Plan of Treatment Upcoming Encounters Date Type Specialty Care Team Description 11/20/2020 Hem/Onc Treatment Hematology Oncology Maryellen, Chair 1 Hem Onc Sc[address] [facility] [place] [address] [phone] 11/30/2020 Office Visit Family Medicine [facility] [address] [facility] [address] 12/01/2020 Nutrition Services Gastroenterology Melissa Omalley RDN [address] [place] [address] 12/04/2020 Hem/Onc Treatment Hematology Oncology [place], Chair 8 Hem Onc Scenery [address] [place] [address] [phone] 12/14/2020 Office Visit Pharmacy [facility] [address] [place] [address] [phone] 12/18/2020 Hem/Onc Treatment Hematology Oncology [place], Chair 7 Hem Onc [facility] [address] [phone] 01/01/2021 Office Visit Hematology Oncology Tono Sanchez MD [address] [facility], [place] [address] [phone] 01/21/2021 Office Visit Gastroenterology Lyssa Stout CRNP [address] [facility] [place] [address] [phone] 09/09/2021 Imaging Radiology Health Maintenance Due Date [...] of this encounter Implants Implanted Type Area Allergy And Immunology Chief Device Identifier Shelf Expiration Date Model / Serial / Lot Microtech Sure Clip Implanted:Qty: 2 on 06/03/2020 by Janis Hatch DO at OR [facility] Clip N/A: Colon 04/21/2022 [facility]-F-26-2 35-C-R / / [id number] documented as of this encounter Advance Directives Documents on File Type Date Recorded Patient Environmental Services Associate Expl anation Advanced Directive service a [...]
--- OUTSIDE RECORDS SUMMARY | 2023-05-10 21:33 | External Medical Summary | Summary of Care ---
Author Name Unknown Organization [place] [address] Care Team Providers Care Studio Control Operator Name Role Phone Alexandra Caceres DO Primary Care Provider Reason for Visit * Reason Onset Date Comments Fax 10/28/2020 Encounter Details Date Type Department Care Team Description 10/28/2020 Telephone [facility] [address] [place], [place] [phone] Alexandra Caceres DO [address] [place], [place] [phone] Fax Allergies Active Allergy Reactions Severity Noted [...] 120 Vial 11 10/02/2019 Active nystatin (NYSTOP) 420350 UNIT/GM powder Apply topically to affected area [...] 30 mL 3 08/31/2020 Active Dexcom G6 Brake Reliner Device Use as directed. To test blood [...] once daily 100 Strip 3 10/29/2020 Active ZettaCoreTouch Delica Plus Kjhzwc53E TESTING once daily 100 Each 3 10/29/2020 [...] 09/17/2020 11/02/19 21 Discontinued OneTouch Delica Plus Gkvuax52Q TESTING once daily 100 Each 3 09/28/2020 [...] pain 01/24/2012 01/17/2017 Genetic Sleep Disorder Research Other*[id number] 05/13/2011 04/07/2016 Obstructive sleep apnea 01/18/2011 12/27/19 [...] or bathing? 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-adoption counselor helps 07/15/2020 Because of a physical, menta [...] Encounter - Michaelle Lindquist LPN - 11/10/2020 5:01 PM EST Received form and gave to Indira to review. * Telephone Encounter - Michaelle Lindquist LPN [...] than 7.0% ([facility]) E11.9 Vitamin D deficiency E55.9 Restrictive lung disease J98.4 Obesity, morbid (more than 100 lbs over ideal weight or BMI > 40) ([facility]) E66.01 Dyslipidemia, goal LDL below 70 E78.5 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 R39.81 Acquired hypothyroidism E03.9 Chronic pain syndrome G89.4 MEDICATION USE AGREEMENT [id number] Cirrhosis of liver ([facility]) K74.60 THAD on CPAP G47.33, Z99.89 Wheelchair dependent Z99.3 Pancytopenia ([facility]) D61.818 Ambulatory dysfunction R26.2 DM type 2 with diabetic peripheral neuropathy ([facility]) E11.42 Insomnia G47.00 Recurrent major depressive disorder, in partial remission ([facility]) F33.41 Impaired mobility and ADLs Z74.09, Z78.9 Generalized weakness R53.1 Gastroesophageal reflux disease K21.9 History of Achilles tendon repair Z98.890 Anemia D64.9 Fibromyalgia M79.7 Achilles tendinitis, right leg M76.61 DNR (do not resuscitate) Z66 Thrombocytopenia ([facility]) D69.6 Iron deficiency anemia due to chronic blood loss D50.0 Splenomegaly R16.1 Cellulitis of right lower extremity L03.115 Cellulitis of right toe L03.031 Diabetic ulcer of right great toe ([facility]) E11.621, L97.519 Bacteremia R78.81 Acute blood loss anemia D62 Esophagitis K20.90 Esophageal varices ([facility]) I85.00 Uncontrolled type 2 diabetes mellitus with hyperglycemia ([facility]) E11.65 LABS: Lab Results Component Value Date/Time [...] call to verified if fax was received: [phone] documented in this encounter Plan of Treatment Upcoming Encounters Date Type Specialty Care Team Description 11/20/2020 Hem/Onc Treatment Hematology Oncology Maryellen, Chair 1 Hem Onc [address] [facility] [address] [phone] 11/30/2020 Office Visit Family Medicine Alexandra Caceres, [address] [place] [address] 12/01/2020 Nutrition Services Gastroenterology Melissa Omalley RDN [address] [place] [address] 12/04/2020 Hem/Onc Treatment Hematology Oncology [place], Chair 8 Hem Onc Scenery [address] [place] [address] [phone] 12/14/2020 Office Visit Pharmacy [facility] [address] [facility], [place] [address] [phone] 12/18/2020 Hem/Onc Treatment Hematology Oncology [place], Chair 7 Hem Onc Scenery [address] [place], [place] [address] [phone] 01/01/2021 Office Visit Hematology Oncology Tono Sanchez MD 200 [facility], [place] [address] [phone] 01/21/2021 Office Visit Gastroenterology [facility]sa [facility]out CRNP [address] [facility] [address] [phone] 09/09/2021 Imaging Radiology Health Maintenance Due Date [...] encounter Implants Implanted Type Area Director Of Valuation Device Identifier Shelf Expiration Date Model / Serial / Lot Microtech Sure Clip Implanted:Qty: 2 on 06/03/2020 by Janis Hatch DO at OR [facility] Clip N/A: Colon 04/21/2022 [facility]-F-26-2 35-C-R / / [id number] documented as of this encounter Advance Directives Documents on File Type Date Recorded Patient Structural Steel Equipment Erector Expl anation Advanced Directive service a kerri [...] Healthcare [facility] Communication Syed Bustos Spouse Emergency Contact
--- OUTSIDE RECORDS SUMMARY | 2023-05-10 21:33 | External Medical Summary | Summary of Care ---
Author Name Unknown Organization [place] [address] Care Team Providers Care Clinical Safety Specialist Name Role Phone Alexandra Caceres DO Primary Care Provider [phone] Reason for Visit * Reason Onset Date Comments Fax 10/28/2020 Encounter Details Date Type Department Care Team Description 10/28/2020 Telephone [facility] [address] [place], [place] [phone] Alexandra Caceres DO [address] [place], [place] [address] Fax Allergies Active Allergy Reactions Severity Noted [...] 120 Vial 11 10/02/2019 Active nystatin (NYSTOP) 555926 UNIT/GM powder Apply topically to affected area [...] 30 mL 3 08/31/2020 Active Dexcom G6 Timber Sizer Operator Device Use as directed. To test [...] once daily 100 Strip 3 10/29/2020 Active SingularTouch Delica Plus Wfsmhc43L TESTING once daily 100 Each 3 10/29/2020 [...] 09/17/2020 11/02/19 21 Discontinued OneTouch Delica Plus Uujikf19P TESTING once daily 100 Each 3 09/28/2020 [...] pain 01/24/2012 01/17/2017 Genetic Sleep Disorder Research Other*[id number] 05/13/2011 04/07/2016 Obstructive sleep apnea 01/18/2011 12/27/19 [...] or bathing? 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-syrup mixer helps 07/15/2020 Because of a physical, [...] encounter Miscellaneous Notes * Telephone Encounter - Cass Penaloza, THAD - 11/10/2020 9:22 AM EST Patient calling [...] Chronic pain syndrome G89.4 MEDICATION USE AGREEMENT [id number] Cirrhosis of liver (HCC) K74.60 THAD on CPAP G47.33, Z99.89 Wheelchair dependent Z99.3 Pancytopenia (HCC) D61.818 Ambulatory dysfunction R26.2 DM type 2 with diabetic peripheral neuropathy ([facility]) E11.42 Insomnia G47.00 Recurrent major depressive disorder, in partial remission ([facility]) F33.41 Impaired mobility and ADLs Z74.09, Z78.9 Generalized weakness R53.1 Gastroesophageal reflux disease K21.9 History of Achilles tendon repair Z98.890 Anemia D64.9 Fibromyalgia M79.7 Achilles tendinitis, right leg M76.61 DNR (do not resuscitate) Z66 Thrombocytopenia ([facility]) D69.6 Iron deficiency anemia due to chronic blood loss D50.0 Splenomegaly R16.1 Cellulitis of right lower extremity L03.115 Cellulitis of right toe L03.031 Diabetic ulcer of right great toe ([facility]) E11.621, L97.519 Bacteremia R78.81 Acute blood loss anemia D62 Esophagitis K20.90 Esophageal varices ([facility]) I85.00 Uncontrolled type 2 diabetes mellitus with hyperglycemia ([facility]) E11.65 LABS: Lab Results Component Value Date/Time [...] call to verified if fax was received: [phone] documented in this encounter Plan of Treatment Upcoming Encounters Date Type Specialty Care Team Description 11/20/2020 Hem/Onc Treatment Hematology Oncology [place], Chair 1 Hem Onc Scenery [address] [facility] [address] [phone] 11/30/2020 Office Visit Family Medicine Alexandra Caceres, [address] [place] [address] [phone] 12/01/2020 Nutrition Services Gastroenterology Melissa Omalley, SAMANTHA [address] [place] [address] [phone] 12/04/2020 Hem/Onc Treatment Hematology Oncology [place], Chair 8 Hem Onc Sc[address]ery [address] [place] [address] [phone] 12/14/2020 Office Visit Pharmacy [facility] [address] [place] [address] [phone] 12/18/2020 Hem/Onc Treatment Hematology Oncology [place], Chair 7 Hem Onc [address] [place] [address] [phone] 01/01/2021 Office Visit Hematology Oncology Tono Sanchez MD 200 [place] [address] [phone] 01/21/2021 Office Visit Gastroenterology Lyssa Stout CRNP [address] [facility] [place] [address] [phone] 09/09/2021 Imaging Radiology Health Maintenance Due Date [...] this encounter Implants Implanted Type Area Data Input Clerk Device Identifier Shelf Expiration Date Model / Serial / Lot Microtech Sure Clip Implanted:Qty: 2 on 06/03/2020 by Janis Hatch DO at OR [facility] Clip N/A: Colon 04/21/2022 [facility]-F-26-2 35-C-R / / [id number] documented as of this encounter Advance Directives Documents on File Type Date Recorded Patient Horticultural Worker Expl anation Advanced Directive service a [...]
--- OUTSIDE RECORDS SUMMARY | 2023-05-10 21:33 | External Medical Summary | Summary of Care ---
Author Name Unknown Organization [place] [address] Care Team Providers Care Ortho/Prosthetic Aide Name Role Phone Alexandra Caceres DO Primary Care Provider Reason for Visit * Reason Onset Date Comments Fax 10/28/2020 Encounter Details Date Type Department Care Team Description 10/28/2020 Telephone [facility] [address] [place], [place] [phone] Alexandra Caceres DO [address] [place], [place] [phone] Fax Allergies Active Allergy Reactions Severity Noted [...] 120 Vial 11 10/02/2019 Active nystatin (NYSTOP) 989068 UNIT/GM powder Apply topically to affected area [...] 30 mL 3 08/31/2020 Active Dexcom G6 Formulator Compounder Device Use as directed. To test blood [...] once daily 100 Strip 3 10/29/2020 Active GuardiCoreTouch Delica Plus Oocxvd54V TESTING once daily 100 Each 3 10/29/2020 [...] 09/17/2020 11/02/19 21 Discontinued OneTouch Delica Plus Clnclz81C TESTING once daily 100 Each 3 09/28/2020 [...] pain 01/24/2012 01/17/2017 Genetic Sleep Disorder Research Other*[id number] 05/13/2011 04/07/2016 Obstructive sleep apnea 01/18/2011 12/27/19 [...] or bathing? 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-daytime caregiver helps 07/15/2020 Because of a physical, [...] Chronic pain syndrome G89.4 MEDICATION USE AGREEMENT [id number] Cirrhosis of liver ([facility]) K74.60 THAD on [...] L03.031 Diabetic ulcer of right great toe ([facility]) E11.621, L97.519 Bacteremia R78.81 Acute blood loss anemia D62 Esophagitis K20.90 Esophageal varices ([facility]) I85.00 Uncontrolled type 2 diabetes mellitus with hyperglycemia ([facility]) E11.65 LABS: Lab Results Component Value Date/Time [...] call to verified if fax was received: [phone] documented in this encounter Plan of Treatment Upcoming Encounters Date Type Specialty Care Team Description 11/20/2020 Hem/Onc Treatment Hematology Oncology Maryellen, Chair 1 Hem Onc Scenery [address] [facility] [place] [address] [phone] 11/30/2020 Office Visit Family Medicine Alexandra [facility] [address] [facility] [address] 12/01/2020 Nutrition Services Gastroenterology Melissa Omalley RDN [address] [place] [address] 12/04/2020 Hem/Onc Treatment Hematology Oncology [place], Chair 8 Hem Onc Scenery [address] [place] [address] [phone] 12/14/2020 Office Visit Pharmacy [facility] [address] [place] [address] [phone] 12/18/2020 Hem/Onc Treatment Hematology Oncology [place], Chair 7 Hem Onc [facility] [address] [phone] 01/01/2021 Office Visit Hematology Oncology Tono Sanchez MD 200 [facility], [place] [address] [phone] 01/21/2021 Office Visit Gastroenterology Lyssa Stout CRNP [address] [facility] [place] [address] [phone] 09/09/2021 Imaging Radiology Health Maintenance Due Date [...] of this encounter Implants Implanted Type Area Entry Level Programmer Device Identifier Shelf Expiration Date Model / Serial / Lot Microtech Sure Clip Implanted:Qty: 2 on 06/03/2020 by Janis Hatch DO at OR [facility] Clip N/A: Colon 04/21/2022 [facility]-F-26-2 35-C-R / / [id number] documented as of this encounter Advance Directives Documents on File Type Date Recorded Patient Electrical Tech/Project Manager Expl anation Advanced Directive service a [...]
--- OUTSIDE RECORDS SUMMARY | 2023-05-10 21:34 | External Medical Summary | Summary of Care ---
Author Name Unknown Organization [place] [address] Care Team Providers Care Knitting Supervisor Name Role Phone Alexandra Caceres DO Primary Care Provider Reason for Visit * Reason Onset Date Comments Fax 10/28/2020 Encounter Details Date Type Department Care Team Description 10/28/2020 Telephone [facility] [address], [place] [id number] Alexandra Caceres DO [address] [place], [place] [phone] Fax Allergies Active Allergy Reactions Severity Noted [...] 120 Vial 11 10/02/2019 Active nystatin (NYSTOP) 422727 UNIT/GM powder Apply topically to affected area [...] 30 mL 3 08/31/2020 Active Dexcom G6 Business Liaison Officer Device Use as directed. To test [...] once daily 100 Strip 3 10/29/2020 Active BooktropeTouch Delica Plus Vamatm74B TESTING once daily 100 Each 3 10/29/2020 [...] 09/17/2020 11/02/19 21 Discontinued OneTouch Delica Plus Xgaobb73Y TESTING once daily 100 Each 3 09/28/2020 [...] pain 01/24/2012 01/17/2017 Genetic Sleep Disorder Research Other*[id number] 05/13/2011 04/07/2016 Obstructive sleep apnea 01/18/2011 12/27/19 [...] or bathing? 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-infantry weapons crewmember helps 07/15/2020 Because of a physical, menta [...] Chronic pain syndrome G89.4 MEDICATION USE AGREEMENT [id number] Cirrhosis of liver (HCC) K74.60 THAD on [...] Diabetic ulcer of right great toe ([facility]) E11.621, L97.519 Bacteremia R78.81 Acute blood loss anemia D62 Esophagitis K20.90 Esophageal varices ([facility]) I85.00 Uncontrolled type 2 diabetes mellitus with hyperglycemia ([facility]) E11.65 LABS: Lab Results Component Value Date/Time [...] call to verified if fax was received: [phone] documented in this encounter Plan of Treatment Upcoming Encounters Date Type Specialty Care Team Description 11/20/2020 Hem/Onc Treatment Hematology Oncology [place], Chair 1 Hem Onc Scenery [address] [place] [facility] [address] [phone] 11/30/2020 Office Visit Family Medicine Alexandra Caceres, [address] [place] [address] [phone] 12/01/2020 Nutrition Services Gastroenterology Melissa Omalley, SAMANTHA [address] [place] [address] [phone] 12/04/2020 Hem/Onc Treatment Hematology Oncology [place], Chair 8 Hem Onc Scenery [address] [place] [address] [phone] 12/14/2020 Office Visit Pharmacy [facility] [address] [place] [address] [phone] 12/18/2020 Hem/Onc Treatment Hematology Oncology [place], Chair 7 Hem Onc Scenery [address] [place] [address] [phone] 01/01/2021 Office Visit Hematology Oncology Tono Sanchez MD 200 [place] [address] [phone] 01/21/2021 Office Visit Gastroenterology Lyssa Stout CRNP [address] [facility] [place] [address] [phone] 09/09/2021 Imaging Radiology Health Maintenance Due Date [...] of this encounter Implants Implanted Type Area Rebrander Device Identifier Shelf Expiration Date Model / Serial / Lot Microtech Sure Clip Implanted:Qty: 2 on 06/03/2020 by Janis Hatch DO at OR [facility] Clip N/A: Colon 04/21/2022 [facility]-F-26-2 35-C-R / / [id number] documented as of this encounter Advance Directives Documents on File Type Date Recorded Patient Roadside Mechanic Expl anation Advanced Directive service a [...]
--- OUTSIDE RECORDS SUMMARY | 2023-05-10 21:34 | External Medical Summary | Summary of Care ---
Author Name Unknown Organization [place] [address] Care Team Providers Care Envelope Stuffer Name Role Phone Alexandra Caceres DO Primary Care Provider Reason for Visit * Reason Onset Date Comments Fax 10/28/2020 Encounter Details Date Type Department Care Team Description 10/28/[address] [facility] [address] [place], [place] [phone] Alexandra Caceres DO [address] [place], [place] [phone] Fax Allergies Active Allergy Reactions Severity Noted [...] 120 Vial 11 10/02/2019 Active nystatin (NYSTOP) 247433 UNIT/GM powder Apply topically to affected area [...] 30 mL 3 08/31/2020 Active Dexcom G6 Grades 1 6 Tutor Device Use as directed. To test [...] once daily 100 Strip 3 10/29/2020 Active Network IntelligenceTouch Delica Plus Bvieao62L TESTING once daily 100 Each 3 10/29/2020 [...] 09/17/2020 11/02/19 21 Discontinued OneTouch Delica Plus Pptgur35A TESTING once daily 100 Each 3 09/28/2020 [...] pain 01/24/2012 01/17/2017 Genetic Sleep Disorder Research Other*[id number] 05/13/2011 04/07/2016 Obstructive sleep apnea 01/18/2011 12/27/19 [...] or bathing? 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-roller leveler helps 07/15/2020 Because of a physical, menta [...] Chronic pain syndrome G89.4 MEDICATION USE AGREEMENT [id number] Cirrhosis of liver (HCC) K74.60 THAD on CPAP G47.33, Z99.89 Wheelchair dependent Z99.3 Pancytopenia (HCC) D61.818 Ambulatory dysfunction R26.2 DM type 2 with diabetic peripheral neuropathy ([facility]) E11.42 Insomnia G47.00 Recurrent major depressive disorder, in partial remission ([facility]) F33.41 Impaired mobility and ADLs Z74.09, Z78.9 Generalized weakness R53.1 Gastroesophageal reflux disease K21.9 History of Achilles tendon repair Z98.890 Anemia D64.9 Fibromyalgia M79.7 Achilles tendinitis, right leg M76.61 DNR (do not resuscitate) Z66 Thrombocytopenia ([facility]) D69.6 Iron deficiency anemia due to chronic blood loss D50.0 Splenomegaly R16.1 Cellulitis of right lower extremity L03.115 Cellulitis of right toe L03.031 Diabetic ulcer of right great toe ([facility]) E11.621, L97.519 Bacteremia R78.81 Acute blood loss anemia D62 Esophagitis K20.90 Esophageal varices ([facility]) I85.00 Uncontrolled type 2 diabetes mellitus with hyperglycemia ([facility]) E11.65 LABS: Lab Results Component Value Date/Time [...] call to verified if fax was received: [phone] documented in this encounter Plan of Treatment Upcoming Encounters Date Type Specialty Care Team Description 11/20/2020 Hem/Onc Treatment Hematology Oncology [place], Chair 1 Hem Onc Scenery [address] [place] [facility] [address] [phone] 11/30/2020 Office Visit Family Medicine Alexandra Caceres, [address] [place] [address] [phone] 12/01/2020 Nutrition Services Gastroenterology Melissa Omalley, SAMANTHA [address] [place] [address] [phone] 12/04/2020 Hem/Onc Treatment Hematology [place], Chair 8 Hem Onc Scenery [address] [place] [address] [phone] 12/14/2020 Office Visit Pharmacy [facility] [address] [place] [address] [phone] 12/18/2020 Hem/Onc Treatment Hematology Oncology [place], Chair 7 Hem Onc Scenery [address] [place] [address] [phone] 01/01/2021 Office Visit Hematology Oncology Tono Sanchez MD 200 [facility] [place] [address] [phone] 01/21/2021 Office Visit Gastroenterology Lyssa Stout CRNP 132 [facility] [place] [address] [phone] 09/09/2021 Imaging Radiology Health Maintenance Due Date [...] of this encounter Implants Implanted Type Area President & Ceo Device Identifier Shelf Expiration Date Model / Serial / Lot Microtech Sure Clip Implanted:Qty: 2 on 06/03/2020 by Janis Hatch DO at OR [facility] Clip N/A: Colon 04/21/2022 [facility]-F-26-2 35-C-R / / [id number] documented as of this encounter Advance Directives Documents on File Type Date Recorded Patient Interlocking Pavement Installer Expl anation Advanced Directive service a [...]
--- OUTSIDE RECORDS SUMMARY | 2023-05-10 21:34 | External Medical Summary | Summary of Care ---
Author Name Unknown Organization [place] [address] Care Team Providers Care Lumber Tailer Name Role Phone Alexandra Caceres DO Primary Care Provider [phone] Reason for Visit * Reason Onset Date Comments Fax 10/28/2020 Encounter Details Date Type Department Care Team Description 10/28/2020 Telephone [facility] [address], [place] [id number] Alexandra Caceres DO [address] [place], [place] [phone] Fax Allergies Active Allergy Reactions Severity Noted [...] 120 Vial 11 10/02/2019 Active nystatin (NYSTOP) 416424 UNIT/GM powder Apply topically to affected area [...] 30 mL 3 08/31/2020 Active Dexcom G6 Coat Examiner Device Use as directed. To test [...] once daily 100 Strip 3 10/29/2020 Active OneWed (Formerly Nearlyweds)Touch Delica Plus Rupnlc78S TESTING once daily 100 Each 3 10/29/2020 [...] 09/17/2020 11/02/19 21 Discontinued OneTouch Delica Plus Nwafka80T TESTING once daily 100 Each 3 09/28/2020 [...] pain 01/24/2012 01/17/2017 Genetic Sleep Disorder Research Other*[id number] 05/13/2011 04/07/2016 Obstructive sleep apnea 01/18/2011 12/27/19 [...] or bathing? 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-patient service specialist helps 07/15/2020 Because of a physical, menta [...] Chronic pain syndrome G89.4 MEDICATION USE AGREEMENT [id number] Cirrhosis of liver (HCC) K74.60 THAD on CPAP G47.33, Z99.89 Wheelchair dependent Z99.3 Pancytopenia (HCC) D61.818 Ambulatory dysfunction R26.2 DM type 2 with diabetic peripheral neuropathy ([facility]) E11.42 Insomnia G47.00 Recurrent major depressive disorder, in partial remission ([facility]) F33.41 Impaired mobility and ADLs Z74.09, Z78.9 Generalized weakness R53.1 Gastroesophageal reflux disease K21.9 History of Achilles tendon repair Z98.890 Anemia D64.9 Fibromyalgia M79.7 Achilles tendinitis, right leg M76.61 DNR (do not resuscitate) Z66 Thrombocytopenia ([facility]) D69.6 Iron deficiency anemia due to chronic blood loss D50.0 Splenomegaly R16.1 Cellulitis of right lower extremity L03.115 Cellulitis of right toe L03.031 Diabetic ulcer of right great toe ([facility]) E11.621, L97.519 Bacteremia R78.81 Acute blood loss anemia D62 Esophagitis K20.90 Esophageal varices ([facility]) I85.00 Uncontrolled type 2 diabetes mellitus with hyperglycemia ([facility]) E11.65 LABS: Lab Results Component [...] call to verified if fax was received: [phone] documented in this encounter Plan of Treatment Upcoming Encounters Date Type Specialty Care Team Description 11/20/2020 Hem/Onc Treatment Hematology Oncology [place], Chair 1 Hem Onc Scenery [address] [place] [facility] [address] [phone] 11/30/2020 Office Visit Family Medicine Alexandra Caceres, [address] [place] [address] [phone] 12/01/2020 Nutrition Services Gastroenterology Melissa Omalley, SAMANTHA [address] [place] [address] [phone] 12/04/2020 Hem/Onc Treatment Hematology [place], Chair 8 Hem Onc Scenery [address] [place] [address] [phone] 12/14/2020 Office Visit Pharmacy [facility] [address] [place] [address] [phone] 12/18/2020 Hem/Onc Treatment Hematology Oncology [place], Chair 7 Hem Onc Scenery [address] [place] [address] [phone] 01/01/2021 Office Visit Hematology Oncology Tono Sanchez MD 200 [place] [address] [phone] 01/21/2021 Office Visit Gastroenterology Lyssa Stout CRNP [address] [facility] [place] [address] [phone] 09/09/2021 Imaging Radiology Health Maintenance Due Date [...] this encounter Implants Implanted Type Area Wood Sawyer Device Identifier Shelf Expiration Date Model / Serial / Lot Microtech Sure Clip Implanted:Qty: 2 on 06/03/2020 by Janis Hatch DO at OR [facility] Clip N/A: Colon 04/21/2022 [facility]-F-26-2 35-C-R / / [id number] documented as of this encounter Advance Directives Documents on File Type Date Recorded Patient Controller Operations And Hr Manager Expl anation Advanced Directive service a [...]
--- OUTSIDE RECORDS SUMMARY | 2023-05-10 21:34 | External Medical Summary | Summary of Care ---
Author Name Unknown Organization [place] [address] Care Team Providers Care Web Coordinator Name Role Phone Alexandra Caceres DO Primary Care Provider [phone] Reason for Visit * Reason Onset Date Comments Fax 10/28/2020 Encounter Details Date Type Department Care Team Description 10/28/2020 Telephone [facility] [address] [place], [place] [phone] Alexandra Caceres DO [address], [place] [phone] Fax Allergies Active Allergy Reactions Severity Noted [...] 120 Vial 11 10/02/2019 Active nystatin (NYSTOP) 402287 UNIT/GM powder Apply topically to affected area [...] 30 mL 3 08/31/2020 Active Dexcom G6 Furniture Builder Device Use as directed. To test [...] once daily 100 Strip 3 10/29/2020 Active Social CollectiveTouch Delica Plus Hfymyd52D TESTING once daily 100 Each 3 10/29/2020 [...] 09/17/2020 11/02/19 21 Discontinued OneTouch Delica Plus Oprhld94Y TESTING once daily 100 Each 3 09/28/2020 [...] pain 01/24/2012 01/17/2017 Genetic Sleep Disorder Research Other*[id number] 05/13/2011 04/07/2016 Obstructive sleep apnea 01/18/2011 12/27/19 [...] or bathing? 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-charge poster helps 07/15/2020 Because of a physical, menta [...] Chronic pain syndrome G89.4 MEDICATION USE AGREEMENT [id number] Cirrhosis of liver (HCC) K74.60 THAD on CPAP G47.33, Z99.89 Wheelchair dependent Z99.3 Pancytopenia (HCC) D61.818 Ambulatory dysfunction R26.2 DM type 2 with diabetic peripheral neuropathy ([facility]) E11.42 Insomnia G47.00 Recurrent major depressive disorder, in partial remission ([facility]) F33.41 Impaired mobility and ADLs Z74.09, Z78.9 Generalized weakness R53.1 Gastroesophageal reflux disease K21.9 History of Achilles tendon repair Z98.890 Anemia D64.9 Fibromyalgia M79.7 Achilles tendinitis, right leg M76.61 DNR (do not resuscitate) Z66 Thrombocytopenia ([facility]) D69.6 Iron deficiency anemia due to chronic blood loss D50.0 Splenomegaly R16.1 Cellulitis of right lower extremity L03.115 Cellulitis of right toe L03.031 Diabetic ulcer of right great toe ([facility]) E11.621, L97.519 Bacteremia R78.81 Acute blood loss anemia D62 Esophagitis K20.90 Esophageal varices ([facility]) I85.00 Uncontrolled type 2 diabetes mellitus with hyperglycemia ([facility]) E11.65 LABS: Lab Results Component [...] call to verified if fax was received: [phone] documented in this encounter Plan of Treatment Upcoming Encounters Date Type Specialty Care Team Description 11/20/2020 Hem/Onc Treatment Hematology Oncology [place], Chair 1 Hem Onc Scenery [address] [place] [facility] [address] [phone] 11/30/2020 Office Visit Family Medicine Alexandra Ccaeres, [address] [place] [address] [phone] 12/01/2020 Nutrition Services Gastroenterology Melissa Omalley, SAMANTHA [address] [place] [address] [phone] 12/04/2020 Hem/Onc Treatment Hematology [place], Chair 8 Hem Onc Scenery [address] [place] [address] [phone] 12/14/2020 Office Visit Pharmacy [facility] [address] [place] [address] [phone] 12/18/2020 Hem/Onc Treatment Hematology Oncology [place], Chair 7 Hem Onc Scenery [address] [place] [address] [phone] 01/01/2021 Office Visit Hematology Oncology Tono Sanchez MD [address] [facility] [place] [address] [phone] 01/21/2021 Office Visit Gastroenterology Lyssa Stout CRNP 132 [facility] [place] [address] [phone] 09/09/2021 Imaging Radiology Health Maintenance Due Date [...] of this encounter Implants Implanted Type Area Website Designer Device Identifier Shelf Expiration Date Model / Serial / Lot Microtech Sure Clip Implanted:Qty: 2 on 06/03/2020 by Janis Hatch DO at OR [facility] Clip N/A: Colon 04/21/2022 [facility]-F-26-2 35-C-R / / [id number] documented as of this encounter Advance Directives Documents on File Type Date Recorded Patient Fish Hatchery Inspector Expl anation Advanced Directive service a [...]
--- OUTSIDE RECORDS SUMMARY | 2023-05-10 21:35 | External Medical Summary | Summary of Care ---
Author Name Unknown Organization [facility] [place] [address] Care Team Providers Care Patrol Supervisor Name Role Phone Alexandra Caceres Primary Care Provider Reason for Visit * Reason Onset Date Comments Test Results 11/05/2020 MRI Encounter Details Date Type Department Care Team Description 11/05/2020 Telephone Gastroenterology, [facility] [address] [facility] [place] [address] Lyssa Stout CRNP [address] [facility] [id number] Test Results (MRI) Allergies Active Allergy Reactions Severity Noted Date Comments Adhesive Tape Itching 04/29/2020 Penicillins Rash 02/12/2008 Perflutren Protein A Microsph 2019 Definity-lower back pain documented as of this encounter (statuses as of 11/06/2020) Medications Medication Sig Dispensed Refills Start Date [...] 120 Vial 11 10/02/2019 Active nystatin (NYSTOP) 188683 UNIT/GM powder Apply topically to affected area [...] 3 05/04/2020 Active escitalopram (LEXAPRO) 20 MG TabletIndications:Rec urrent major depressive disorder, in partial remission (HCC) TAKE 1 TABLET BY MOUTH ONCE DAILY 90 Tab 1 05/21/2020 Active traZODone (DESYREL) 50 MG TabletIndications:Sle ep disturbances TAKE 1 TABLET BY MOUTH AT [...] 30 mL 3 08/31/2020 Active Dexcom G6 Coloring Machine Operator Device Use as directed. To [...] once daily 100 Strip 3 10/29/2020 Active Nanotether Discovery ServicesTouch Delica Plus Nbfean90Y TESTING once daily 100 Each 3 10/29/2020 [...] before supper 90 mL 3 11/02/2020 Active documented as of this encounter (statuses as of 11/06/2020) Active Problems Problem Noted Date Uncontrolled type [...] as of this encounter (statuses as of 11/06/2020) Resolved Problems Problem Noted Date Resolved Date [...] pain 01/24/2012 01/17/2017 Genetic Sleep Disorder Research Other*[id number] 05/13/2011 04/07/2016 Obstructive sleep apnea 01/18/2011 12/27/19 [...] as of this encounter (statuses as of 11/06/2020) Immunizations Name Administration Dates Next Due HEP [...] or bathing? 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-system engineer helps 07/15/2020 Because of a physical, menta [...] Telephone Encounter - Cecil Padilla RN - 11/06/2020 8:40 AM EST Called patient with the results from her MRI. Advised to continue with current care regarding her cirrhosis. * Telephone Encounter - Brianne Triana RN - 11/05/2020 1:04 PM EST ----- Message from ZAK Bolton sent at 11/05/2020 12:30 PM EST ----- Pls inform pt that her MRI liver showed no signs of HCC though limited exam quality due to her difficulty w breath holding. No new plans, continue f/u for cirrhosis care at this time ZAK Schreiber documented in this encounter Plan of Treatment Upcoming Encounters Date Type Specialty Care Team Description 11/06/2020 Hem/Onc Treatment Hematology [place], Chair 6 Hem Onc Scenery [address] [place] [address] [phone] 11/20/2020 Hem/Onc Treatment Hematology [place], Chair 1 Hem Onc Scenery [address] [facility] [place] [address] [phone] 11/30/2020 Office Visit Family Medicine Alexandra Caceres, DO [address] [place], [place] [address] 12/01/2020 Nutrition Services Gastroenterology Melissa Omalley, RDN [address] [facility] [place] [address] [phone] 12/04/2020 Hem/Onc Treatment Hematology Oncology [place], Chair 8 Hem Onc Scenery [address] [place] [address] [phone] 12/14/2020 Office Visit Pharmacy [facility] [address] [place], [place] [address] 12/18/2020 Hem/Onc Treatment Hematology Oncology [place], Chair 7 Hem Onc Scenery 200 [facility] [place] [address] [phone] 01/01/2021 Office Visit Hematology [facility]cology [facility] [address] [phone] 01/21/2021 Office Visit Gastroenterology Lyssa Stout CRNP 132 [facility] [place] [address] [phone] 09/09/2021 Imaging Radiology Health Maintenance Due Date [...] of this encounter Implants Implanted Type Area Cannery Worker Device Identifier Shelf Expiration Date Model / Serial / Lot Microtech Sure Clip Implanted:Qty: 2 on 06/03/2020 by Janis Hatch DO at OR [facility] Clip N/A: Colon 04/21/2022 [facility]-F-26-2 35-C-R / / [id number] documented as of this encounter Advance Directives Documents on File Type Date Recorded Patient Pump And Still Operator Expl anation Advanced Directive service a [...]
--- OUTSIDE RECORDS SUMMARY | 2023-05-10 21:35 | External Medical Summary | Summary of Care ---
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 For Metal Name Role Phone Nicki Alexandrajennie Ashton DO Primary Care Provider [phone] Reason for Visit * Reason Comments IV Therapy venofer Encounter Details Date Type Department Care Team Description 11/06/2020 Hem/Onc Treatment Hematology/Oncology Treatment, [place] [address] [place] [address] Maryellen, Chair 6 Hem Onc Scenery [address] [place] [address] [phone] Iron deficiency anemia due to chronic blood [...] 120 Vial 11 10/02/2019 Active nystatin (NYSTOP) 530800 UNIT/GM powder Apply topically to affected area [...] 30 mL 3 08/31/2020 Active Dexcom G6 Hydraulic Lift Operator Device Use as directed. To test [...] Strip 3 10/29/2020 Active OneTouch Delica Plus [id number] TESTING once daily 100 Each 3 10/29/2020 [...] pain 01/24/2012 01/17/2017 Genetic Sleep Disorder Research Other*[id number] 05/13/2011 04/07/2016 Obstructive sleep apnea 01/18/2011 12/27/19 [...] Sign Reading Time Taken Comments Blood Pressure 123/83 11/06/2020 2:07 PM EST Pulse 76 11/06/2020 2:07 PM EST Temperature 36.4 C (97.5 F) 11/06/2020 2:07 PM ES T Respiratory Rate 16 11/06/2020 2:07 PM EST Oxygen Saturation 95% 11/06/2020 2:07 PM EST Inhaled Oxygen Concentration - - [...] or bathing? 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 Pt tolerated well. Port de-accessed by JANELLE, RN. * Bella Ramires LPN - 11/06/2020 2:06 PM EST Venofer infusing. Chair 12 Port accessed by JANELLE, RN. documented in this encounter Plan of Treatment Upcoming Encounters Date Type Specialty Care Team Description 11/20/2020 Hem/Onc Treatment Hematology Oncology Maryellen, Chair 1 Hem Onc Scenery [address] [place] [address] [phone] 11/30/2020 Office Visit Family Medicine Alexandra Caceres, DO [address] [place] [address] [phone] 12/01/2020 Nutrition Services Gastroenterology Melissa Omalley, SAMANTHA [address] [place] [address] [phone] 12/04/2020 Hem/Onc Treatment Hematology Oncology [place], Chair 8 Hem Onc Scenery [address] [place] [address] [phone] 12/14/2020 Office Visit Pharmacy [facility] [address] [place], [place] [address] 12/18/2020 Hem/Onc Treatment Hematology Oncology Maryellen, Chair 7 Hem Onc Scenery 200 [facility] [place] [address] [phone] 01/01/2021 Office Visit Hematology Oncology Tono Sanchez MD 200 [place] [address] [phone] 01/21/2021 Office Visit [facility]ology [facility] [address] [facility] [address] [phone] 09/09/2021 Imaging Radiology Health Maintenance Due Date [...] of this encounter Implants Implanted Type Area Basketball Commentator Device Identifier Shelf Expiration Date Model / Serial / Lot Microtech Sure Clip Implanted:Qty: 2 on 06/03/2020 by Janis Hatch DO at OR [facility] Clip N/A: Colon 04/21/2022 [facility]-F-26-2 35-C-R / / [id number] documented as of this encounter Visit Diagnoses [...] Push, ONCE PRN Other, Hypersensitivity Reaction, Starting 11/06/20 at 1355, Until 11/07/20 at 1354, For 24 hours EPINEPHrine 1 MG/ML inj 0.3 mg 0.3 mg, Intramuscular, ONCE PRN Other, Hypersensitivity Reaction or Anaphylaxis, Starting Mon11/06/20 at 1355, Until 11/07/20 at 1354, For 24 hours hEParin 100 UNIT/ML Lock Flush inj 500 Units 500 Units (5 mL), IV Lock, PRN Other, IV Flush, Starting Mon11/06/20 at 1355, Until 11/07/20 at 1354, For 24 hours, Do not flush if lock, PICC, or central line not in place; IV infusing or unable to flush., Given 11/06/2020 3:43 PM EST 500 Units Hydrocortisone Na Succinate PF (Solu-Cortef) inj 100 mg 100 mg, IV Push, ONCE PRN Other, Hypersensitivity Reaction, Starting Mon11/06/20 at 1355, Until 11/07/20 at 1354, For 24 hours NSS infusion 500 mL, Intravenous, at 50 mL/hr, CONTINUOUS, Starting Mon11/06/20 at 1500, Until 11/07/20 at 0059 Start Infusion 11/06/2020 2:00 PM EST 500 mL 50 mL/hr sodium chloride 0.9% flush/inj 10 mL 10 mL, IV Push, PRN Other, IV Flush, Starting Mon11/06/20 at 1355, Until 11/07/20 at 1354, For 24 hours, Do not flush if lock, PICC, or central line not in place; IV infusing or unable to flush., Given 11/06/2020 3:43 PM EST 10 mL Inactive Administered Medications - up to 3 most recent administrations Medication Order MAR Action Action Date Dose Rate Site Iron Sucrose (Venofer) 300 mg in NSS 250 mL ivpb 300 mg, IV Piggyback, ONCE, 1 dose, Mon11/06/20 at 1530, Administer over 90 Minutes Start Infusion 11/06/2020 1:58 PM EST 300 mg 166.67 mL/hr documented in this encounter Advance Directives Documents on File Type Date Recorded Patient Restaurant Area Director Expl anation Advanced Directive service a [...] Relationship Healthcare Agent Romainhi p Communication Syed Juli Spouse Emergency Contact
--- OUTSIDE RECORDS SUMMARY | 2023-05-10 21:35 | External Medical Summary | Summary of Care ---
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 Name Role Phone QamarMaikel mcdonough Primary Care Provider Reason for Visit * Reason Comments eRx-Medication Refill Encounter Details Date Type Department Care Team Description 10/31/2020 Refill [place] [address] [place], [place] [id number] Rajwinder Carter DO [address] [place] [address] [phone] Allergies Active Allergy Reactions Severity Noted Date Comments Adhesive Tape Itching 04/29/2020 Penicillins Rash 02/12/2008 Perflutren Protein A Microsph 2019 Definity-lower back pain documented as of this encounter (statuses as of 11/02/2020) Medications Medication Sig Dispensed Refills Start Date [...] 120 Vial 11 10/02/2019 Active nystatin (NYSTOP) 234955 UNIT/GM powder Apply topically to affected area [...] at bedtime. 34 Tab 0 05/29/2020 Active Trulicity 1.5 MG/0.5ML Subcutaneous Solution Pen-injector (Dulaglutide)Indic ations:Type 2 diabetes mellitus with hemoglobin A1c goal of less than 7.0% ([facility]) Inject 1.5mg (one pen) under the skin once weekly 6 mL 3 06/12/2020 Active BD Pen Needle Mini U/F 31G [...] AT BEDTIME 30 Tab 2 08/12/2020 Active Insulin Aspart 100 UNIT/ML Subcutaneous Solution (NovoLOG) Inject 28 units under the skin before breakfast, 28 units before lunch, and 28 units before supper 60 mL 3 08/31/2020 Active Lantus SoloStar 100 UNIT/ML Subcutaneous Solution Pen-injector (insulin glargine)Indicatio ns:Type 2 diabetes mellitus with hemoglobin A1c goal of less than 7.0% ([facility]) Inject 25 units under the skin once a day 30 mL 3 08/31/2020 Active Dexcom G6 Clinical Dietetic Technician Device Use as directed. To test [...] Dx E11.9 1 Each 3 09/14/2020 Active NovoLOG FlexPen 100 UNIT/ML Subcutaneous Solution Pen-injector (insulin aspart) INJECT 12 UNITS UNDER THE SKIN THREE TIMES A DAY BEFORE MEALS. PLUS COVER MEALS WITH THE FOLLOWING SLIDING SCALE: 80-150 (O UNITS); 151-200 (2 UNITS); 201-250 (4 UNITS); 251-300 (6 UNITS) 15 mL 0 09/17/2020 Active Nadolol 20 MG Oral Tablet (CORGARD)Indicatio [...] once daily 100 Strip 3 10/29/2020 Active Synoste OyTouch Delica Plus Vreksp84B TESTING once daily 100 Each 3 10/29/2020 Active Levothyroxine Sodium 200 MCG Oral Tablet (Levoxyl) TAKE 1 TABLET BY MOUTH ONCE DAILY 90 Tab 3 11/02/2020 Active Tamsulosin HCl 0.4 MG Oral Capsule (Flomax) TAKE 1 CAPSULE BY MOUTH ONCE DAILY 90 Cap 3 11/02/2020 Active levothyroxine (LEVOXYL) 200 MCG Tablet Take 1 Tab by mouth daily. 90 Tab 3 02/20/2020 1 Discontinued Gabapentin 300 MG Oral Capsule (Neurontin) TAKE 1 CAPSULE BY MOUTH IN THE MORNING, 1 CAPSULE MIDDAY, AND 2 CAPSULES IN THE EVENING 180 Cap 0 10/08/2020 1 Discontinued Oxybutynin Chloride 5 MG Oral Tablet (Ditropan) TAKE 1 TABLET BY MOUTH TWICE DAILY 60 Tab 0 10/08/2020 1 Discontinued Tamsulosin HCl 0.4 MG Oral Capsule (Flomax) TAKE 1 CAPSULE BY MOUTH ONCE DAILY 90 Cap 0 10/08/2020 1 Discontinued documented as of this encounter (statuses as of 11/02/2020) Active Problems Problem Noted Date Uncontrolled type [...] as of this encounter (statuses as of 11/02/2020) Resolved Problems Problem Noted Date Resolved Date [...] pain 01/24/2012 01/17/2017 Genetic Sleep Disorder Research Other*[id number] 05/13/2011 04/07/2016 Obstructive sleep apnea 01/18/2011 12/27/19 [...] apnea 06/30/2009 Obesity, BMI not known 06/04/2009 03/ 0 Overview: Per Obesity Taxonomy Other lymphedema [...] as of this encounter (statuses as of 11/02/2020) Immunizations Name Administration Dates Next Due HEP [...] or bathing? 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 07/15/2020 Because of a physical, menta [...] Telephone Encounter - Maikel Caceres DO - 11/02/2020 12:35 PM EST Signed Prescriptions: Disp Refills Levothyroxine Sodium 200 MCG Oral Tablet (*90 Tab 3 Sig: TAKE 1 TABLET BY MOUTH ONCE DAILY Authorizing Provider: MAIKEL CACERES Ordering User: MARIBETH MUNGUIA Tamsulosin HCl 0.4 MG Oral Capsule (Flomax)90 Cap 3 Sig: TAKE 1 CAPSULE BY MOUTH ONCE DAILY Authorizing Provider: MAIKEL CACERES * Telephone Encounter - Maribeth Munguia [facility] - 11/02/2020 11:59 AM EST Pending Prescriptions: Disp Refills Tamsulosin HCl 0.4 MG Oral Capsule (Flomax)90 Cap 3 Sig: TAKE 1 CAPSULE BY MOUTH ONCE DAILY Signed Prescriptions: Disp Refills Levothyroxine Sodium 200 MCG Oral Tablet (*90 Tab 3 Sig: TAKE 1 TABLET BY MOUTH ONCE DAILY Authorizing Provider: MAIKEL CACERES Ordering User: MARIBETH MUNGUIA * Telephone Encounter - Maribeth Munguia [facility] - 11/02/2020 11:58 AM EST Refill pharmacists currently not authorized to approve refills for this class of medication per refill protocol. Please approve if appropriate. Future refills. Thanks, Maribeth Munguia, R.Ph. Clinical Pharmacist [facility] [phone] 11/02/2020,11:58 AM Pending Prescriptions: Disp Refills Tamsulosin HCl 0.4 MG Oral Capsule (Flomax)90 Cap 3 Sig: TAKE 1 CAPSULE BY MOUTH ONCE DAILY Signed Prescriptions: Disp Refills Levothyroxine Sodium 200 MCG Oral Tablet (*90 Tab 3 Sig: TAKE 1 TABLET BY MOUTH ONCE DAILY Authorizing Provider: MAIKEL CACERES Ordering User: MARIBETH MUNGUIA Last Office/Telemedicine Visit: 08/27/2020 Next Office Visit: 11/30/2020 Scheduled Provider(s): Maikel Caceres, DO If no future appointments scheduled, and last appointment is greater than a year ago, please schedule patient for a follow-up appointment Last date the medication was ordered: 10/08/20 Pharmacy: [facility] [id number] Is this request for a controlled [...] Encounters Date Type Specialty Care Team Description 11/02/2020 Office Visit Pharmacy [facility] [address] [place], [place] [address] [address] [phone] 11/04/2020 Appointment Radiology 11/06/2020 Hem/Onc Treatment Hematology Oncology Maryellen, Chair 6 Hem Onc Scenery [address] [place] [address] [phone] 11/20/2020 Hem/Onc Treatment Hematology Oncology [place], Chair 1 Hem Onc Scenery [address] [place] [address] [phone] 11/30/2020 Office Visit Family Medicine Maikel Caceres, DO [address] [place] [address] 12/01/2020 Nutrition Services Gastroenterology Melissa Omalley, RDN [address] [place] [id number] 12/04/2020 Hem/Onc Treatment Hematology Oncology [place], Chair 8 Hem Onc Scenery [address] [place] [address] [phone] 12/18/2020 Hem/Onc Treatment Hematology Oncology [place], Chair 7 Hem Onc Scenery [address] [facility] [address] [phone] 01/01/2021 Office Visit Hematology Oncology Tono Sanchez MD [facility], [place] [address] 01/21/2021 Office Visit [facility]enterology [facility] [address] [facility] [address] 09/09/2021 Imaging Radiology Health [...] of this encounter Implants Implanted Type Area Ergonomics Technician Device Identifier Shelf Expiration Date Model / Serial / Lot Microtech Sure Clip Implanted:Qty: 2 on 06/03/2020 by Janis Hatch DO at OR [facility] Clip N/A: Colon 04/21/2022 [facility]-F-26-2 35-C-R / / [id number] documented as of this encounter Advance Directives Documents on File Type Date Recorded 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
--- OUTSIDE RECORDS SUMMARY | 2023-05-10 21:35 | External Medical Summary | Summary of Care ---
Author Name Unknown Organization [place] [address] Care Team Providers Care Chief Accountant Name Role Phone Alexandra Caceres DO Primary Care Provider [phone] Reason for Visit * Reason Onset Date Comments Fax 10/28/2020 Encounter Details Date Type Department Care Team Description 10/28/2020 Telephone [facility] [address] [place], [place] [id number] Alexandra Caceres DO [address], [place] [id number] Fax Allergies Active Allergy Reactions Severity Noted [...] 120 Vial 11 10/02/2019 Active nystatin (NYSTOP) 598076 UNIT/GM powder Apply topically to affected area [...] 30 mL 3 08/31/2020 Active Dexcom G6 Dermatology Specialist Device Use as directed. To test [...] once daily 100 Strip 3 10/29/2020 Active FIGSTouch Delica Plus [id number] TESTING once daily 100 Each 3 10/29/2020 [...] 09/17/2020 11/02/19 21 Discontinued OneTouch Delica Plus Vzjwyq60A TESTING once daily 100 Each 3 09/28/2020 [...] pain 01/24/2012 01/17/2017 Genetic Sleep Disorder Research Other*[id number] 05/13/2011 04/07/2016 Obstructive sleep apnea 01/18/2011 12/27/19 [...] or bathing? 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 Because of a physical, menta [...] encounter Miscellaneous Notes * Telephone Encounter - Syed León OSA [...] less than 7.0% ([facility]) E11.9 Vitamin D deficiency E55.9 Restrictive lung disease J98.4 Obesity, morbid (more than 100 lbs over ideal weight or BMI > 40) ([facility]) E66.01 Dyslipidemia, goal LDL below 70 E78.5 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 R39.81 Acquired hypothyroidism E03.9 Chronic pain syndrome G89.4 MEDICATION USE AGREEMENT [id number] Cirrhosis of liver ([facility]) K74.60 THAD on CPAP G47.33, Z99.89 Wheelchair dependent Z99.3 Pancytopenia ([facility]) D61.818 Ambulatory dysfunction R26.2 DM type 2 with diabetic peripheral neuropathy ([facility]) E11.42 Insomnia G47.00 Recurrent major depressive disorder, in partial remission ([facility]) F33.41 Impaired mobility and ADLs Z74.09, Z78.9 Generalized weakness R53.1 Gastroesophageal reflux disease K21.9 History of Achilles tendon repair Z98.890 Anemia D64.9 Fibromyalgia M79.7 Achilles tendinitis, right leg M76.61 DNR (do not resuscitate) Z66 Thrombocytopenia (HCC) D69.6 Iron deficiency anemia due to chronic blood loss D50.0 Splenomegaly R16.1 Cellulitis of right lower extremity L03.115 Cellulitis of right toe L03.031 Diabetic ulcer of right great toe (HCC) E11.621, L97.519 Bacteremia R78.81 Acute blood loss anemia D62 Esophagitis K20.90 Esophageal varices ([facility]) I85.00 Uncontrolled type 2 diabetes mellitus with hyperglycemia ([facility]) E11.65 LABS: Lab Results Component Value Date/Time [...] call to verified if fax was received: [phone] documented in this encounter Plan of Treatment Upcoming Encounters Date Type Specialty Care Team Description 11/04/2020 Appointment Radiology 11/06/2020 Hem/Onc Treatment Hematology Oncology [place], Chair 6 Hem Onc Sc[address] [place] [address] [phone] 11/20/2020 Hem/Onc Treatment Hematology Oncology [place], Chair 1 Hem Onc Scenery [address] [place] [address] [phone] 11/30/2020 Office Visit Family Medicine Alexandra Caceres DO [address] [place] [address] [phone] 12/01/2020 Nutrition Services Gastroenterology Melissa Omalley, RDN [address] [place] [address] [phone] 12/04/2020 Hem/Onc Treatment Hematology Oncology [place], Chair 8 Hem Onc Scenery [address] [place] [address] [phone] 12/14/2020 Office Visit Pharmacy [facility] [address] [place] [address] [phone] 12/18/2020 Hem/Onc Treatment Hematology Oncology [place], Chair 7 Hem Onc Sc[address]ery [address] [place] [address] [phone] 01/01/2021 Office Visit Hematology Oncology Tono Sanchez MD [address] [facility] [place] [address] [phone] 01/21/2021 Office Visit Gastroenterology Lyssa Stout, ZAK [address] [facility] [place] [address] [phone] 09/09/2021 Imaging Radiology Health Maintenance Due Date [...] of this encounter Implants Implanted Type Area Shipping And Receiving Assistant Device Identifier Shelf Expiration Date Model / Serial / Lot Microtech Sure Clip Implanted:Qty: 2 on 06/03/2020 by Janis Hatch DO at OR [facility] Clip N/A: Colon 04/21/2022 [facility]-F-26-2 35-C-R / / [id number] documented as of this encounter Advance Directives Documents on File Type Date Recorded Patient Casing Tier Expl anation Advanced Directive service a kerri [...]
--- OUTSIDE RECORDS SUMMARY | 2023-05-10 21:35 | External Medical Summary | Summary of Care ---
Author Name Unknown Organization [facility] Address [place] [address] Care Team Providers Care Development Officer Name Role Phone Alexandra Caceres Primary Care Provider [phone] Reason for Visit * Reason Comments Dosage Adjustment In Person (Anticoag Cl inic) Diabetes Follow-Up Encounter Details Date Type Department Care Team Description 11/02/2020 Office Visit Pharmacy, [place] [address] [place] [address] [place] [facility] [address] [place] [address] [phone] Type 2 diabetes mellitus with hemoglobin A1c goal of less than 7.0% ([facility])* Allergies Active Allergy Reactions Severity Noted Date [...] 120 Vial 11 10/02/2019 Active nystatin (NYSTOP) 986659 UNIT/GM powder Apply topically to affected area [...] 30 mL 3 08/31/2020 Active Dexcom G6 Dock Clerk Device Use as directed. To test [...] TO ACCESSING. 30 g 3 10/09/2020 Active [employer] Verio In Vitro Strip (Glucose Blood) TESTING once daily 100 Strip 3 10/29/2020 Active OneTouch Delica Plus [id number] TESTING once daily 100 Each 3 10/29/2020 [...] before supper 90 mL 3 11/02/2020 Active Trulicity 1.5 MG/0.5ML Subcutaneous Solution Pen-injector (Dulaglutide)Indic ations:Type 2 diabetes mellitus with hemoglobin A1c goal of less than 7.0% (HCC) Inject 1.5mg (one pen) under the skin once weekly 6 mL 3 06/12/2020 1 Discontinued Insulin Aspart 100 UNIT/ML Subcutaneous Solution (NovoLOG) Inject 28 units under the skin before breakfast, 28 units before lunch, and 28 units before supper 60 mL 3 08/31/2020 1 Discontinued NovoLOG FlexPen 100 UNIT/ML Subcutaneous Solution Pen-injector (insulin aspart) INJECT 12 UNITS UNDER THE SKIN THREE TIMES A DAY BEFORE MEALS. PLUS COVER MEALS WITH THE FOLLOWING SLIDING SCALE: 80-150 (O UNITS); 151-200 (2 UNITS); 201-250 (4 UNITS); 251-300 (6 UNITS) 15 mL 0 09/17/2020 1 Discontinued documented as of this encounter [...] pain 01/24/2012 01/17/2017 Genetic Sleep Disorder Research Other*[id number] 05/13/2011 04/07/2016 Obstructive sleep apnea 01/18/2011 12/27/19 [...] or bathing? 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 Patient presents for return diabetic visit. DIABETES: Current diabetic medications: ADJUST: Novolog, Inject 28 units before breakfast, 28 units before lunch, and 28 units before supper- to reflect how patient taking DECREASE: Lantus pen, 25 units daily Metformin 1000mg, 1 tablet twice a day Trulicity 1.5mg SQ weekly GFR >60 as of 05/29/20 Lifestyle: Diet: unchanged Glucose Review/SMBG: Readings obtained from patient documented BG logbook Pre am Post am Pre Lunch Post Lunch Pre pm Post pm HS 295 283 371 173 199 404 188 235 278 275 175 290 172 371 193 Pre am Post am Pre Lunch Post Lunch Pre pm Post pm HS Average 211 #DIV/0! 241 #DIV/0! #DIV/0! #DIV/0! 324 Hi 295 0 283 0 0 0 404 Lo 172 0 199 0 0 0 235 Range 123 0 84 0 0 0 169 Hypoglycemia: Does your blood sugar go below 70 mg/dL? No Hyperglycemia symptoms present: none Lab Results Component Value Date/Time HEMOGLOBIN A1C - [facility] 9.9 (H) 07/06/2020 05:24 AM Lab Results Component Value Date/Time ESTIMATED GLOMERULAR FILTRATION RATE - [facility] >60.0 09/24/2020 05:16 PM ESTIMATED GLOMERULAR FILTRATION RATE - [facility] >60.0 06/20/2013 10:18 AM Lab Results Component Value Date/Time CREATININE [...] no BP Readings from Last 3 Encounters: 10/23/20 139/85 10/09/20 151/80 10/05/20 123/71 Blood pressure at goal: yes HYPERLIPIDEMIA: Patient is taking moderate or high intensity statin: yes HEALTH MAINTENANCE REVIEW: Health Maintenance Due Topic Date Due DIABETES-EYE EXAM 06/12/2019 DIABETES-URINE MICROALBUMIN EVERY 12 MONTHS 01/12/2020 Dexa Scan 2020 Pneumococcal Vaccine: 65+ Years (2 of 2 - PPSV23) 2020 Zoster Vaccines (3 of 3) 06/23/2020 DIABETES-FOOT EXAM 11/06/2020 ASSESSMENT & PLAN: BG Readings Blood sugars uncontrolled. Patient and are poor historians so unclear of exact timing of BG. They tried their best to decipher times. Agreed to help keep better BG log. Patient reports she has not received Dexcom yet but it should be getting to her soon. Her sister is on it and will help her with it per patient. Patient does not have phone so printed quick start user guide. Re-reviewed when to change sensor, transmitter, basics of CGM etc, and they verbalized understanding. Was on Xochitl before so CGM not new concept for patient. Medications Reviewed current regimen, patient is adherent to regimen. believes he may be giving extra dose of Novolog before bed but unable to confirm. Reviewed the different insulins andtheir doses. BG not at goal. Discussed increasing Trulicity. Patient agreeable to increase Trulicity. Gap in BG log but patient rising from lunch to bedtime with no supper readings. Patient confirmed supper is largest meal of the day. Will increase Novolog at supper. Patient dropping ~100 points overnight but could be from potential extra dose of Novolog. Patient will make sure to not give any Novolog at bedtime at this time. Will reassess at next visit. Patient to contact clinic with any issues. Patient has PCP appt next month. Patient is agreeable to SMBG 4 time(s) [...] to address due to time constraints of visit- Patient has PCP apptnext month FOLLOW UP: Return to clinic in 6 weeks Next Office Visit: 12/14/2020 [facility] Clinical Pharmacist - Young Adult Librarian Medication Therapy Management Clinic 11/02/2020, 3:22 PM documented in this encounter Plan of Treatment Upcoming Encounters Date Type Specialty Care Team Description 11/04/2020 Appointment Radiology 11/06/2020 Hem/Onc Treatment Hematology Oncology Maryellen, Chair [address] [place] [address] [phone] 11/20/2020 Hem/Onc Treatment Hematology Oncology Maryellen, Chair 1 Hem On[address] [place] [address] [phone] 11/30/2020 Office Visit Family Medicine [facility]aceres DO [address] [facility] [address] [phone] 12/01/2020 Nutrition Services Gastroenterology Melissa Omalley, [place] [address] [place] [address] [phone] 12/04/2020 Hem/Onc Treatment Hematology Oncology [place], Chair 8 Hem Onc Sc[address]ery [address] [place] [address] [phone] 12/14/2020 [facility] [address] [facility] [id number] 12/18/2020 Hem/Onc Treatment Hematology Oncology Maryellen, Chair 7 [address] [place] [address] [phone] 01/01/2021 Office Visit Hematology Oncology Tono Sanchez MD [address] [place] [address] [phone] 01/21/2021 Office Visit Gastroenterology Lyssa Stout CRNP [address] [facility] [place] [address] [phone] 09/09/2021 Imaging Radiology Health Maintenance Due Date [...] of this encounter Implants Implanted Type Area Employee Communications Intern Device Identifier Shelf Expiration Date Model / Serial / Lot [employer] Sure Clip Implanted:Qty: 2 on 06/03/2020 by Janis Hatch DO at OR [facility] Clip N/A: Colon 04/21/2022 [facility]-F-26-2 35-C-R / / [id number] documented as of this encounter Visit Diagnoses Diagnosis Type 2 diabetes mellitus with hemoglobin A1c goal of less than 7.0% (HCC)- Primary documented in this encounter Advance Directives Documents on File Type Date Recorded Patient Pest Control Technician Expl anation Advanced Directive service a [...] Name Relationship Healthcare Agent [facility] navya Communication Syed Fariasel Spouse Emergency Contact
--- OUTSIDE RECORDS SUMMARY | 2023-05-10 21:35 | External Medical Summary | Summary of Care ---
Author Name Unknown Organization [facility] Address [place] [address] Care Team Providers Care Waste Hand Name Role Phone Maikel Caceres DO Primary Care Provider Reason for Visit * Reason Comments eRx-Medication Refill Encounter Details Date Type Department Care Team Description 10/31/[address] [id number] Maikel Caceres DO [address] [place] [address] [phone] Allergies Active Allergy Reactions Severity Noted Date [...] 120 Vial 11 10/02/2019 Active nystatin (NYSTOP) 745014 UNIT/GM powder Apply topically to affected area [...] less than 7.0% ([facility]) Inject 25 units under the skin once a day 30 mL 3 08/31/2020 Active Dexcom G6 Case Briefer Device Use as directed. To test blood [...] Strip 3 10/29/2020 Active OneTouch Delica Plus [id number] TESTING once daily 100 Each 3 10/29/2020 [...] THE EVENING 180 Cap 5 11/02/2020 Active Gabapentin 300 MG Oral Capsule (Neurontin) TAKE 1 CAPSULE BY MOUTH IN THE MORNING, 1 CAPSULE MIDDAY, AND 2 CAPSULES IN THE EVENING 180 Cap 0 10/08/2020 1 Discontinued Oxybutynin Chloride 5 MG Oral Tablet (Ditropan) TAKE 1 TABLET BY MOUTH TWICE DAILY 60 Tab 0 10/08/2020 1 Discontinued documented as of [...] pain 01/24/2012 01/17/2017 Genetic Sleep Disorder Research Other*[id number] 05/13/2011 04/07/2016 Obstructive sleep apnea 01/18/2011 12/27/19 [...] or bathing? 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 07/15/2020 Because of a physical, menta [...] 12:35 PM EST Signed Prescriptions: Disp Refills Oxybutynin Chloride 5 MG Oral Tablet (Ditr*60 Tab 5 Sig: TAKE 1 TABLET BY MOUTH TWICE DAILY Authorizing Provider: MAIKEL CACERES Gabapentin 300 MG Oral Capsule (Neurontin) 180 Cap5 Sig: TAKE 1 CAPSULE BY MOUTH EVERY MORNING, 1 CAPSULE MIDDAY AND 2 CAPSULES IN THE EVENING Authorizing Provider: MAIKEL CACERES * Telephone Encounter - Aubrey Reis [facility] - 11/02/2020 11:59 AM EST Pending Prescriptions: Disp Refills Oxybutynin Chloride 5 MG Oral Tablet (Ditr*60 Tab 5 Sig: TAKE 1 TABLET BY MOUTH TWICE DAILY Gabapentin 300 MG Oral Capsule (Neurontin) 180 Cap5 Sig: TAKE 1 CAPSULE BY MOUTH EVERY MORNING, 1 CAPSULE MIDDAY AND 2 CAPSULES IN THE EVENING * Telephone Encounter - Aubrey Reis [facility] - 11/02/2020 11:59 AM EST Refill pharmacists currently not authorized to approve refills for this class of medication per refill protocol. Please approve if appropriate. Thanks, Aubrey Reis, R.Ph. Clinical Pharmacist [facility] [phone] 11/02/2020,11:59 AM Pending Prescriptions: Disp Refills Oxybutynin Chloride 5 MG Oral Tablet (Ditr*60 Tab 5 Sig: TAKE 1 TABLET BY MOUTH TWICE DAILY Gabapentin 300 MG Oral Capsule (Neurontin) 180 Cap5 Sig: TAKE 1 CAPSULE BY MOUTH EVERY MORNING, 1 CAPSULE MIDDAY AND 2 CAPSULES IN THE EVENING Last Office/Telemedicine Visit: 08/27/2020 Next Office Visit: 11/30/2020 Scheduled Provider(s): Maikel Caceres DO If no future appointments scheduled, and last appointment is greater than a year ago, please schedule patient for a follow-up appointment Last date the medication was ordered: 10/08/20 Pharmacy: [facility] [id number] Is this request for a controlled [...] Specialty Care Team Description 11/02/2020 Office Visit [facility] [address] [facility] [address] [phone] 11/04/2020 Appointment Radiology 11/06/2020 Hem/Onc Treatment Hematology Oncology [place], Chair 6 Hem Onc Sc[address] [place] [address] [phone] 11/20/2020 Hem/Onc Treatment Hematology Oncology [place], Chair 1 Hem Onc Scenery [address] [place] [address] [phone] 11/30/2020 Office Visit Family Medicine Maikel [facility]res DO [address] [facility] [address] [phone] 12/01/2020 Nutrition Services Gastroenterology Melissa Omalley, [place] [address] [place] [address] 12/04/2020 Hem/Onc Treatment Hematology Oncology Lipan, Chair 8 Hem Onc Sc[address] [facility] [address] [phone] 12/18/2020 Hem/Onc Treatment Hematology Oncology Lipan, Chair 7 Hem Onc Sc[address] [facility] [address] [phone] 01/01/2021 Office Visit Hematology Oncology Tono Sanchez MD [address] [facility], [place] [address] [phone] 01/21/2021 Office Visit Gastroenterology [facility] Stout CRNP [address] [facility] [address] [phone] 09/09/2021 Imaging Radiology Health Maintenance Due Date [...] of this encounter Implants Implanted Type Area Sustainable Design Coordinator Device Identifier Shelf Expiration Date Model / Serial / Lot [employer] Sure Clip Implanted:Qty: 2 on 06/03/2020 by Janis Hatch DO at OR [facility] Clip N/A: Colon 04/21/2022 [facility]-F-26-2 35-C-R / / [id number] documented as of this encounter Advance Directives Documents on File Type Date Recorded Patient Recovery Unit Operator Expl anation Advanced Directive service a [...] Code 07/04/2020 3:26 PM 07/07/2020 6:07 PM Th is order reflects the patients wishes and were consensually agreed upon. Full Code 06/03/2020 1:25 PM 06/03/2020 8:35 PM This order reflects the patients wishes and were consensually agreed upon. Discussion of Advance Directives occurred with: Not Discussed Healthcare Agents on File Name Relationship Healthcare Agent Romainaz p Communication Syed Bustos Spouse Emergency Contact
--- OUTSIDE RECORDS SUMMARY | 2023-05-10 21:36 | External Medical Summary | Summary of Care ---
Author Name Unknown Organization [place] [address] Care Team Providers Care Retail Experience Specialist Name Role Phone Alexandra Caceres DO Primary Care Provider Reason for Visit * Reason Onset Date Comments Fax 10/28/2020 Encounter Details Date Type Department Care Team Description 10/28/2020 Telephone [facility] [address] [place], [place] [id number] Alexandra Caceres DO [address] [place], [place] [id number] Fax Allergies Active Allergy Reactions Severity Noted Date Comments Adhesive Tape Itching 04/29/2020 Penicillins Rash 02/12/2008 Perflutren Protein A Microsph 2019 Definity-lower back pain documented as of this encounter (statuses as of 10/30/2020) Medications Medication Sig Dispensed Refills Start Date [...] 120 Vial 11 10/02/2019 Active nystatin (NYSTOP) 591546 UNIT/GM powder Apply topically to affected area [...] per day. 1 Kit 0 11/19/2019 Active levothyroxine (LEVOXYL) 200 MCG Tablet Take 1 Tab by mouth daily. 90 Tab 3 02/20/2020 Active linaCLOtide (LINZESS) 290 MCG Capsule Take [...] than 7.0% ([facility]) Inject 1.5mg (one pen) under the skin [...] than 7.0% ([facility]) Inject 25 units under the skin once a day 30 mL 3 08/31/2020 Active Dexcom G6 Colorectal Surgeon Device Use as directed. To test [...] One daily 90 Tab 1 09/19/2020 Active Gabapentin 300 MG Oral Capsule (Neurontin) TAKE 1 CAPSULE BY MOUTH IN THE MORNING, 1 CAPSULE MIDDAY, AND 2 CAPSULES IN THE EVENING 180 Cap 0 10/08/2020 Active Oxybutynin Chloride 5 MG Oral Tablet (Ditropan) TAKE 1 TABLET BY MOUTH TWICE DAILY 60 Tab 0 10/08/2020 Active Tamsulosin HCl 0.4 MG Oral Capsule (Flomax) TAKE 1 CAPSULE BY MOUTH ONCE DAILY 90 Cap 0 10/08/2020 Active Lidocaine-Prilocai ne 2.5-2.5 % External Cream (Emla)Indications: Iron deficiency anemia due to chronic blood loss,Pancytopenia (HCC) Apply topically to affected area as needed for Other (for port). APPLY TO SKIN OVER MEDIPORT & COVER 1HR PRIOR TO ACCESSING. 30 g 3 10/09/2020 Active OneTouch Verio In Vitro Strip (Glucose Blood) TESTING once daily 100 Strip 3 10/29/2020 Active OneTouch Delica Plus [id number] TESTING once daily 100 Each 3 10/29/2020 Active OneTouch Delica Plus [id number] TESTING once daily 100 Each 3 09/28/2020 10/28/2020 Discontinue d(Refill) OneTouch Verio In Vitro Strip (Glucose Blood) TESTING once daily 100 Strip 3 09/28/2020 10/28/2020 Discontinue d(Refill) documented as of this encounter (statuses as of 10/30/2020) Active Problems Problem Noted Date Uncontrolled type [...] as of this encounter (statuses as of 10/30/2020) Resolved Problems Problem Noted Date Resolved Date [...] pain 01/24/2012 01/17/2017 Genetic Sleep Disorder Research Other*[id number] 05/13/2011 04/07/2016 Obstructive sleep apnea 01/18/2011 12/27/19 [...] as of this encounter (statuses as of 10/30/2020) Immunizations Name Administration Dates Next Due HEP [...] or bathing? 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-school vocational educator helps 07/15/2020 Because of a physical, menta [...] of previous message. * Telephone Encounter - Jelani Barillastavo Cruz LPN - 10/28/2020 3:36 PM EST FAX [...] than 7.0% ([facility]) E11.9 Vitamin D deficiency E55.9 Restrictive lung disease J98.4 Obesity, morbid (more than 100 lbs over ideal weight or BMI > 40) ([facility]) E66.01 Dyslipidemia, goal LDL below 70 E78.5 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 R39.81 Acquired hypothyroidism E03.9 Chronic pain syndrome G89.4 MEDICATION USE AGREEMENT [id number] Cirrhosis of liver ([facility]) K74.60 THAD on CPAP G47.33, Z99.89 Wheelchair dependent Z99.3 Pancytopenia (HCC) D61.818 Ambulatory dysfunction R26.2 DM type 2 with diabetic peripheral neuropathy ([facility]) E11.42 Insomnia G47.00 Recurrent major depressive disorder, in partial remission ([facility]) F33.41 Impaired mobility and ADLs [...] 2 diabetes mellitus with hyperglycemia (HCC) E11.65 LABS: Lab Results Component Value Date/Time [...] 04/28/2020 04:37 PM * Telephone Encounter - KhangrZoe OSA - 10/28/2020 10:54 AM EST Received a call asking if fax was received by office. Name/Company sending fax: [employer] What fax is pertaining to: Testing supplies Date(s) they sent request: 10/23/20 and 10/28/20 Verified fax number they are sending to is correct (Y or N): yes Callback Number for the clinic to call to verified if fax was received: [phone] documented in this encounter Plan of Treatment Upcoming Encounters Date Type Specialty Care Team Description 10/31/2020 Appointment Radiology 11/02/2020 Office Visit [facility]acy [facility] [address], [place] [id number] 11/06/2020 Hem/Onc Treatment Hematology Oncology [place], Chair 6 Hem On[address] [place] [address] [phone] 11/20/2020 Hem/Onc Treatment Hematology Oncology [place], Chair 1 Hem Onc Scenery [address] [facility] [address] [phone] 11/30/2020 Office Visit Family Medicine Alexandra Caceres, DO [address] [place] [address] [phone] 12/01/2020 Nutrition Services Gastroenterology Melissa Omalley, [place] [address] [place], [place] [address] 12/04/2020 Hem/Onc Treatment Hematology Oncology [place], Chair 8 Hem Onc Scenery [address] [place] [address] [phone] 12/18/2020 Hem/Onc Treatment Hematology Oncology [place], Chair 7 Hem Onc Sc[address]ery [address] [place] [address] [phone] 01/01/2021 Office Visit Hematology Oncology Tono Sanchez MD [address] [facility] [id number] 01/21/2021 Office Visit Gastroenterology Lyssa Stout CRNP [address] [facility] [place] [address] [phone] 09/09/2021 Imaging Radiology Health Maintenance Due Date [...] of this encounter Implants Implanted Type Area Tower Hoist Operator Device Identifier Shelf Expiration Date Model / Serial / Lot [employer] Sure Clip Implanted:Qty: 2 on 06/03/2020 by Janis Hatch DO at OR [facility] Clip N/A: Colon 04/21/2022 [facility]-F-26-2 35-C-R / / [id number] documented as of this encounter Advance Directives Documents on File Type Date Recorded Patient Rn Relief Charge Expl anation Advanced Directive service a kerri [...] Agent [facility] Communication Syed Fariasel Spouse Emergency Contact
--- OUTSIDE RECORDS SUMMARY | 2023-05-10 21:36 | External Medical Summary | Summary of Care ---
Author Name Unknown Organization [facility] Address [place] [address] Care Team Providers Care Pattern Marker Name Role Phone Nicki Alexandra Daisha MORENO Primary Care Provider Reason for Visit * Reason Comments IV Therapy Venofer #2/6 Encounter Details Date Type Department Care Team Description 10/23/2020 Hem/Onc Treatment Hematology/Oncology Treatment, [place] [address] [place] [address] Maryellen Chair 6 Hem Onc Scenery [address] [place] [address] [phone] Iron deficiency anemia due to chronic blood loss* Allergies Active Allergy Reactions Severity Noted Date Comments Adhesive Tape Itching 04/29/2020 Penicillins Rash 02/12/2008 Perflutren Protein A Microsph 2019 Definity-lower back pain documented as of this encounter (statuses as of 10/23/2020) Medications Medication Sig Dispensed Refills Start Date [...] 120 Vial 11 10/02/2019 Active nystatin (NYSTOP) 104632 UNIT/GM powder Apply topically to affected area [...] Active Trulicity 1.5 MG/0.5ML Subcutaneous Solution Pen-injector (Dulaglutide)Indicati ons:Type 2 diabetes mellitus with hemoglobin A1c goal of less than 7.0% ([facility]) Inject 1.5mg (one pen) under the [...] than 7.0% ([facility]) Inject 25 units under the skin once a day 30 mL 3 08/31/2020 Active Dexcom G6 Violin Tutor Device Use as directed. To test [...] 09/17/2020 Active Nadolol 20 MG Oral Tablet (CORGARD)Indications: HTN, goal below 140/90 One daily 90 Tab 1 09/19/2020 Active OneTouch Delica Plus Igftut17S TESTING once daily 100 Each 3 09/28/2020 Active OneTouch Verio In Vitro Strip (Glucose Blood) TESTING once daily 100 Strip 3 09/28/2020 Active Gabapentin 300 MG Oral Capsule (Neurontin) [...] ONCE DAILY 90 Cap 0 10/08/2020 Active Lidocaine-Prilocaine 2.5-2.5 % External Cream (Emla)Indications:Iro n deficiency anemia due to chronic blood loss,Pancytopenia (HCC) Apply topically to affected area as needed for Other (for port). APPLY TO SKIN OVER MEDIPORT & COVER 1HR PRIOR TO ACCESSING. 30 g 3 10/09/2020 Active documented as of this encounter (statuses as of 10/23/2020) Active Problems Problem Noted Date Uncontrolled type [...] as of this encounter (statuses as of 10/23/2020) Resolved Problems Problem Noted Date Resolved Date [...] pain 01/24/2012 01/17/2017 Genetic Sleep Disorder Research Other*[id number] 05/13/2011 04/07/2016 Obstructive sleep apnea 01/18/2011 12/27/19 [...] as of this encounter (statuses as of 10/23/2020) Immunizations Name Administration Dates Next Due HEP [...] Sign Reading Time Taken Comments Blood Pressure 139/85 10/23/2020 1:47 PM EST Pulse 69 10/23/2020 1:47 PM EST Temperature 36 C (96.8 F) 10/23/2020 1:47 PM EST Respiratory Rate 20 10/23/2020 1:47 PM EST Oxygen Saturation 97% 10/23/2020 1:47 PM EST Inhaled Oxygen Concentration - - [...] as of this encounter Nursing Notes * Mary Steve RN - 10/23/2020 3:48 PM EST Goals: patient will remain free from injury Possible barriers to meeting goals: uses motorized wheelchair Stability of the patient: Moderately unstable - medium risk of patient condition declining or worsening Summary regarding today's goals: Met: patient left the office in stable condition, free from injury Cathy Patton RN assisted * Mary Steve RN - 10/23/2020 1:47 PM EST Chair #3 The patient presents to the office today for Venofer #2/6. The patient has no voiced complaints. Safety and Risk for Injury Patient will remain free from injury. Ensure appropriate safety devices are available. Provide and maintain safe environment. documented in this encounter Plan of Treatment Upcoming Encounters Date Type Specialty Care Team Description 10/31/2020 Appointment Radiology 11/02/2020 [facility] [address] [place] [address] [phone] 11/06/2020 Hem/Onc Treatment Hematology Oncology [place], Chair 6 Hem Onc Scenery [address] [place] [address] [phone] 11/20/2020 Hem/Onc Treatment Hematology Oncology [place], Chair 1 Hem Onc Scenery [address] [place] [address] [phone] 11/30/2020 Office Visit Family Medicine Alexandra Caceres DO [address] [place] [address] [phone] 12/01/2020 Nutrition Services Gastroenterology Melissa Omalley RDN [address] [place] [address] [phone] 12/04/2020 Hem/Onc Treatment Hematology Oncology [place], Chair 8 Hem Onc Scenery [address] [place] [address] [phone] 12/18/2020 Hem/Onc Treatment Hematology Oncology [place], Chair 7 Hem Onc [facility] [address] [facility], [place] [address] [phone] 01/01/2021 Office Visit Hematology Oncology Tono Sanchez MD 200 [facility], [place] [address] [phone] 01/21/2021 Office Visit Gastroenterology Lyssa Stout CRNP [address] [facility] [place] [address] [phone] 09/09/2021 Imaging Radiology Health Maintenance Due Date [...] of this encounter Implants Implanted Type Area Extended Insurance Clerk Device Identifier Shelf Expiration Date Model / Serial / Lot Microtech Sure Clip Implanted:Qty: 2 on 06/03/2020 by Janis Hatch DO at OR [facility] Clip N/A: Colon 04/21/2022 [facility]-F-26-2 35-C-R / / [id number] documented as of this encounter Visit Diagnoses [...] Push, ONCE PRN Other, Hypersensitivity Reaction, Starting Mon10/23/20 at 1338, Until 10/24/20 at 1337, For 24 hours EPINEPHrine 1 MG/ML inj 0.3 mg 0.3 mg, Intramuscular, ONCE PRN Other, Hypersensitivity Reaction or Anaphylaxis, Starting Mon10/23/20 at 1338, Until 10/24/20 at 1337, For 24 hours hEParin 100 UNIT/ML Lock Flush inj 500 Units 500 Units (5 mL), IV Lock, PRN Other, IV Flush, Starting Mon10/23/20 at 1338, Until 10/24/20 at 1337, For 24 hours, Do not flush if lock, PICC, or central line not in place; IV infusing or unable to flush., Given 10/23/2020 3:16 PM EST 500 Units Hydrocortisone Na Succinate PF (Solu-Cortef) inj 100 mg 100 mg, IV Push, ONCE PRN Other, Hypersensitivity Reaction, Starting Mon10/23/20 at 1338, Until 10/24/20 at 1337, For 24 hours NSS infusion 500 mL, Intravenous, at 50 mL/hr, CONTINUOUS, Starting Mon10/23/20 at 1445, Until 10/24/20 at 0044 Start Infusion 10/23/2020 1:35 PM EST 500 mL 50 mL/hr sodium chloride 0.9% flush/inj 10 mL 10 mL, IV Push, PRN Other, IV Flush, Starting 10/23/20 at 1338, Until 10/24/20 at 1337, For 24 hours, Do not flush if lock, PICC, or central line not in place; IV infusing or unable to flush., Given 10/23/2020 3:16 PM EST 10 mL Inactive Administered Medications - up to 3 most recent administrations Medication Order MAR Action Action Date Dose Rate Site Iron Sucrose (Venofer) 300 mg in NSS 250 mL ivpb 300 mg, IV Piggyback, ONCE, 1 dose, 10/23/20 at 1515, Administer over 90 Minutes Start Infusion 10/23/2020 1:40 PM EST 300 mg 166.67 mL/hr documented in this encounter Advance Directives Documents on File Type Date Recorded 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
--- OUTSIDE RECORDS SUMMARY | 2023-05-10 21:36 | External Medical Summary | Summary of Care ---
Author Name Unknown Organization [facility] Address [facility] [place] [address] Care Team Providers Care Credit Control Administrator Name Role Phone Alexandra Caceres DO Primary Care Provider [phone] Reason for Visit * Reason Onset Date Comments Advice 10/15/2020 Encounter Details Date Type Department Care Team Description 10/15/2020 Telephone [facility] [address], [place] [id number] Alexandra Caceres DO [address] [place] [address] [phone] Advice Allergies Active Allergy Reactions Severity Noted Date Comments Adhesive Tape Itching 04/29/2020 Penicillins Rash 02/12/2008 Perflutren Protein A Microsph 2019 Definity-lower back pain documented as of this encounter (statuses as of 10/27/2020) Medications Medication Sig Dispensed Refills Start Date [...] 120 Vial 11 10/02/2019 Active nystatin (NYSTOP) 070105 UNIT/GM powder Apply topically to affected area [...] less than 7.0% ([facility]) Inject 1.5mg (one pen) under [...] less than 7.0% ([facility]) Inject 25 units under the skin once a day 30 mL 3 08/31/2020 Active Dexcom G6 Buffing Wheel Former Automatic Device Use as directed. To test [...] Tab 1 09/19/2020 Active OneTouch Delica Plus Gjhiua97V TESTING once daily 100 Each 3 09/28/2020 [...] as of this encounter (statuses as of 10/27/2020) Active Problems Problem Noted Date Uncontrolled type [...] as of this encounter (statuses as of 10/27/2020) Resolved Problems Problem Noted Date Resolved Date [...] pain 01/24/2012 01/17/2017 Genetic Sleep Disorder Research Other*[id number] 05/13/2011 04/07/2016 Obstructive sleep apnea 01/18/2011 12/27/19 [...] as of this encounter (statuses as of 10/27/2020) Immunizations Name Administration Dates Next Due HEP [...] or bathing? 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 Caceres [...] Dexcom. Patient will bring Dexcom to next MTM appt and will review in more detail. Reviewed that Xochitl sensor needs to be changed every 14 days and Dexcom sensor needs to be changed every 10 days. She verbalized understanding. Will follow-up at inperson MTM appt on 11/02 Indira Hudson RPh, Pharm [...] was never told that Could someone from [place] call her regarding her Dexcom Please advise * Telephone Encounter - Jaci Bangura CPhT - 10/15/2020 10:32 AM EST Patient calling to request a order for Dexcom G6 Sensor , she received 1 in the middle of September in the mail , not sure where it is coming from please advise patient if there is currently a order placed [phone] Jaci [facility] Refill Call Center 110:35 AM documented in this encounter Plan of Treatment Upcoming Encounters Date Type Specialty Care Team Description 10/31/2020 Appointment Radiology 11/02/2020 Office Visit [facility]acy [facility] [address], [place] [id number] 11/06/2020 Hem/Onc Treatment Hematology Oncology Maryellen, Chair 6 Hem Onc Scenery [address] [place] [address] [phone] 11/20/2020 Hem/Onc Treatment Hematology Oncology Maryellen, Chair 1 Hem Onc Scenery [address] [facility] [address] [phone] 11/30/2020 Office Visit Family Medicine Alexandra Caceres, DO [address] [place] [address] [phone] 12/01/2020 Nutrition Services Gastroenterology Melissa Omalley, [place] [address] [facility] [place] [address] [phone] 12/04/2020 Hem/Onc Treatment Hematology Oncology Maryellen, Chair 8 Hem Onc Scenery [address] [place] [address] [phone] 12/18/2020 Hem/Onc Treatment Hematology Oncology Maryellen, Chair 7 Hem Onc Scenery [address] [place] [address] [phone] 01/01/2021 Office Visit Hematology Oncology Tono Sanchez MD [address] [facility] [place] [address] [phone] 01/21/2021 Office Visit Gastroenterology Lyssa Stout CRNP [address] [facility] [place] [address] [phone] 09/09/2021 Imaging Radiology Health Maintenance Due Date [...] of this encounter Implants Implanted Type Area Financial Services Internship Device Identifier Shelf Expiration Date Model / Serial / Lot Microtech Sure Clip Implanted:Qty: 2 on 06/03/2020 by Janis Hatch DO at OR [facility] Clip N/A: Colon 04/21/2022 [facility]-F-26-2 35-C-R / / [id number] documented as of this encounter Advance Directives Documents on File Type Date Recorded 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
--- OUTSIDE RECORDS SUMMARY | 2023-05-10 21:36 | External Medical Summary | Summary of Care ---
Author Name Unknown Organization [place] [address] Care Team Providers Care Baggage And Mail Agent Name Role Phone Alexandra Caceres DO Primary Care Provider Reason for Visit * Reason Onset Date Comments Fax 10/28/2020 Encounter Details Date Type Department Care Team Description 10/28/2020 Telephone [facility] [address], [place] [id number] Alexandra Caceres DO [address], [place] [id number] Fax Allergies Active Allergy Reactions Severity Noted Date Comments Adhesive Tape Itching 04/29/2020 Penicillins Rash 02/12/2008 Perflutren Protein A Microsph 2019 Definity-lower back pain documented as of this encounter (statuses as of 10/29/2020) Medications Medication Sig Dispensed Refills Start Date [...] 120 Vial 11 10/02/2019 Active nystatin (NYSTOP) 176921 UNIT/GM powder Apply topically to affected area [...] 7.0% ([facility]) Inject 1.5mg (one pen) under the skin [...] 7.0% ([facility]) Inject 25 units under the skin once a day 30 mL 3 08/31/2020 Active Dexcom G6 Grey Roll Man Device Use as directed. To test [...] Strip 3 10/29/2020 Active OneTouch Delica Plus Byflvv10X TESTING once daily 100 Each 3 10/29/2020 Active OneTouch Delica Plus Pyccfc15E TESTING once daily 100 Each 3 09/28/2020 10/28/2020 Discontinue d(Refill) OneTouch Verio In Vitro Strip (Glucose Blood) TESTING once daily 100 Strip 3 09/28/2020 10/28/2020 Discontinue d(Refill) documented as of this encounter (statuses as of 10/29/2020) Active Problems Problem Noted Date Uncontrolled type [...] as of this encounter (statuses as of 10/29/2020) Resolved Problems Problem Noted Date Resolved Date [...] pain 01/24/2012 01/17/2017 Genetic Sleep Disorder Research Other*[id number] 05/13/2011 04/07/2016 Obstructive sleep apnea 01/18/2011 12/27/19 [...] as of this encounter (statuses as of 10/29/2020) Immunizations Name Administration Dates Next Due HEP [...] or bathing? 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 07/15/2020 Because of a physical, [...] than 7.0% ([facility]) E11.9 Vitamin D deficiency E55.9 Restrictive lung disease J98.4 Obesity, morbid (more than 100 lbs over ideal weight or BMI > 40) ([facility]) E66.01 Dyslipidemia, goal LDL below 70 E78.5 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 R39.81 Acquired hypothyroidism E03.9 Chronic pain syndrome G89.4 MEDICATION USE AGREEMENT [id number] Cirrhosis of liver ([facility]) K74.60 THAD on CPAP G47.33, Z99.89 Wheelchair dependent Z99.3 Pancytopenia ([facility]) D61.818 Ambulatory dysfunction R26.2 DM type 2 with diabetic peripheral neuropathy ([facility]) E11.42 Insomnia G47.00 Recurrent major depressive disorder, in partial remission ([facility]) F33.41 Impaired mobility and ADLs Z74.09, Z78.9 Generalized weakness R53.1 Gastroesophageal reflux disease K21.9 History of Achilles tendon repair Z98.890 Anemia D64.9 Fibromyalgia M79.7 Achilles tendinitis, right leg M76.61 DNR (do not resuscitate) Z66 Thrombocytopenia ([facility]) D69.6 Iron deficiency anemia due to chronic blood loss D50.0 Splenomegaly R16.1 Cellulitis of right lower extremity L03.115 Cellulitis of right toe L03.031 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 11/20/2020 Hem/Onc Treatment Hematology Oncology [place], Chair 1 Hem Onc Scenery [address] [place] [address] [phone] 11/30/2020 Office Visit Family Medicine Alexandra Caceres, [address] [facility] [address] [phone] 12/01/2020 Nutrition Services Gastroenterology Melissa Omalley, [place] [address] [place] [address] [phone] 12/04/2020 Hem/Onc Treatment Hematology Oncology [place], Chair 8 Hem Onc Scenery [address] [place] [address] [phone] 12/18/2020 Hem/Onc Treatment Hematology Oncology [place], Chair 7 Hem Onc Scenery [address] [place] [address] [phone] 01/01/2021 Office Visit Hematology Oncology Tono Sanchez MD [address] [place] [address] [phone] 01/21/2021 Office Visit Gastroenterology Lyssa Stout CRNP [address] [facility] [place] [address] [phone] 09/09/2021 Imaging Radiology Health Maintenance Due Date [...] of this encounter Implants Implanted Type Area Pinmaker Device Identifier Shelf Expiration Date Model / Serial / Lot Microtech Sure Clip Implanted:Qty: 2 on 06/03/2020 by Janis Hatch DO at OR [facility] Clip N/A: Colon 04/21/2022 [facility]-F-26-2 35-C-R / / [id number] documented as of this encounter Advance Directives Documents on File Type Date Recorded 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 p Communication Syed Bsutos Spouse Emergency Contact
--- OUTSIDE RECORDS SUMMARY | 2023-05-10 21:37 | External Medical Summary | Summary of Care ---
Author Name Unknown Organization [facility] Address [facility] [place] [address] Care Team Providers Care Sap Ppm Consultant Name Role Phone Alexandra Caceres DO Primary Care Provider [phone] Reason for Visit * Reason Onset Date Comments Advice 10/15/2020 Encounter Details Date Type Department Care Team Description 10/15/2020 Telephone [facility] [address], [place] [phone] Alexandra Caceres DO [address] [place] [address] [phone] Advice Allergies Active Allergy Reactions Severity Noted [...] 120 Vial 11 10/02/2019 Active nystatin (NYSTOP) 664945 UNIT/GM powder Apply topically to affected area [...] than 7.0% ([facility]) Inject 1.5mg (one pen) under the skin once weekly 6 mL 3 06/12/2020 Active BD Pen Needle Mini U/F 31G X 5 MM (Insulin Pen Needle)Indications:Ty pe 2 diabetes mellitus with hemoglobin A1c goal of less than 7.0% ([facility]) Use to inject insulin four [...] than 7.0% ([facility]) Inject 25 units under the skin once a day 30 mL 3 08/31/2020 Active Dexcom G6 Rooming House Operator Device Use as directed. To test [...] Tab 1 09/19/2020 Active OneTouch Delica Plus Uzftfm20X TESTING once daily 100 Each 3 09/28/2020 [...] pain 01/24/2012 01/17/2017 Genetic Sleep Disorder Research Other*[id number] 05/13/2011 04/07/2016 Obstructive sleep apnea 01/18/2011 12/27/19 [...] or bathing? 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 Name/Company sending fax: [employer] What fax is pertaining to: dexcom order Date(s) they sent request: 10/20, 10/23 Verified fax number they are sending to is correct (Y or N): Y Callback Number for the clinic to call to verified if fax was received: [phone] * Telephone Encounter - Michaelle Lindquist LPN - 10/20/2020 1:12 PM EST Noted * Telephone Encounter - Christopher Garcia OSA - 10/20/2020 12:43 PM EST Pt states [employer] ([id number]) is going to be contact Dr. Caceres with the information to on it. PCP will need to fill it out and send it back so she can get her supplies. * Telephone Encounter - Indira Hudson RP - 10/15/2020 2:15 PM EST Patient Phone [...] She verbalized understanding. Will follow-up at inperson TNM appt on 11/02 Indira Hudson RP, Pharm D, BCACP Clinical Pharmacist 10/15/20 2:15 [...] advise * Telephone Encounter - Jaci Bangura [facility] - 10/15/2020 10:32 AM EST Patient calling to request a order for Dexcom G6 Sensor , she received 1 in the middle of September in the mail , not sure where it is coming from please advise patient if there is currently a order placed [phone] Jaci Jiang [facility] Refill Call Center 110:35 AM documented in this encounter Plan of Treatment Upcoming Encounters Date Type Specialty Care Team Description 10/23/2020 Hem/Onc Treatment Hematology Oncology [place], Chair 6 Hem Onc Scenery [address] [place] [id number] Arrived 10/31/2020 Appointment Radiology 11/02/2020 Office Visit Pharmacy [facility] [address], [place] [address] 11/06/2020 Hem/Onc Treatment Hematology Oncology [place], Chair 6 Hem Onc Scenery [address] [place] [address] [phone] 11/20/2020 Hem/Onc Treatment Hematology Oncology [place], Chair 1 Hem Onc Scenery [address] [place] [address] [phone] 11/30/2020 Office Visit Family Medicine Alexandra Caceres, DO [address], [place] [address] 12/01/2020 Nutrition Services Gastroenterology Melissa Omalley, [place] [address] [place] [address] 12/04/2020 Hem/Onc Treatment Hematology Oncology [place], Chair 8 Hem Onc Scenery [address] [place] [address] [phone] 12/18/2020 Hem/Onc Treatment Hematology Oncology Maryellen, Chair 7 Hem Onc Scenery [address] [place] [address] [phone] 01/01/2021 Office Visit Hematology Oncology Tono Sanchez MD [address] [place] [address] [phone] 01/21/2021 Office Visit [facility]enterology [facility]out CR[facility] [address] [facility] [place] [place] [address] [phone] 09/09/2021 Imaging Radiology Health Maintenance Due Date [...] of this encounter Implants Implanted Type Area Apprentice Cook Device Identifier Shelf Expiration Date Model / Serial / Lot Microtech Sure Clip Implanted:Qty: 2 on 06/03/2020 by Janis Hatch DO at OR [facility] Clip N/A: Colon 04/21/2022 [facility]-F-26-2 35-C-R / / [id number] documented as of this encounter Advance Directives Documents on File Type Date Recorded 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
--- OUTSIDE RECORDS SUMMARY | 2023-05-10 21:37 | External Medical Summary | Summary of Care ---
Author Name Unknown Organization [facility] Address [facility] [place] [address] Care Team Providers Care Floor Technician Name Role Phone Alexandra Caceres DO Primary Care Provider [phone] Reason for Visit * Reason Onset Date Comments Advice 10/15/2020 Encounter Details Date Type Department Care Team Description 10/15/2020 Telephone [facility] [address] [place], [place] [id number] Alexandra Caceres DO [address] [place] [address] [phone] Advice Allergies Active Allergy Reactions Severity Noted [...] 120 Vial 11 10/02/2019 Active nystatin (NYSTOP) 914642 UNIT/GM powder Apply topically to affected area [...] than 7.0% ([facility]) Inject 1.5mg (one pen) under the skin once weekly 6 mL 3 06/12/2020 Active BD Pen Needle Mini U/F 31G X 5 MM (Insulin Pen Needle)Indications:Ty pe 2 diabetes mellitus with hemoglobin A1c goal of less than 7.0% ([facility]) Use to inject insulin four times [...] than 7.0% ([facility]) Inject 25 units under the skin once a day 30 mL 3 08/31/2020 Active Dexcom G6 Technical Applications Specialist Device Use as directed. To test [...] Tab 1 09/19/2020 Active OneTouch Delica Plus [id number] TESTING once daily 100 Each 3 09/28/2020 [...] pain 01/24/2012 01/17/2017 Genetic Sleep Disorder Research Other*[id number] 05/13/2011 04/07/2016 Obstructive sleep apnea 01/18/2011 12/27/19 [...] or bathing? 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-coastal tug mate helps 07/15/2020 Because of a physical, menta [...] Miscellaneous Notes * Telephone Encounter - Deepali Ortiz OSA [...] call to verified if fax was received: [phone] * Telephone Encounter - Michaelle Lindquist LPN - 10/20/2020 1:12 PM EST Noted * Telephone Encounter - Christopher Garcia OSA - 10/20/2020 12:43 PM EST Pt states [employer] ([id number]) is going to be contact Dr. Caceres [...] She verbalized understanding. Will follow-up at inperson [facility] appt on 11/02 Indira Hudson RP, Pharm [...] advise * Telephone Encounter - Jaci Bangura [facility] - 10/15/2020 10:32 AM EST Patient calling to request a order for Dexcom G6 Sensor , she received 1 in the middle of September in the mail , not sure where it is coming from please advise patient if there is currently a order placed [phone] Jaci Jiang Data Integrity Specialist II Pharmacy Refill Call Center 110:35 AM documented in this encounter Plan of Treatment Upcoming Encounters Date Type Specialty Care Team Description 10/31/2020 Appointment Radiology 11/02/2020 Office Visit Pharmacy [facility] [address] [place], [place] [id number] 11/06/2020 Hem/Onc Treatment Hematology Oncology Maryellen, Chair [address] [place] [address] [phone] 11/20/2020 Hem/Onc Treatment Hematology Oncology Maryellen, Chair 1 Hem Onc Scenery [address] [place] [address] [phone] 11/30/2020 Office Visit Family Medicine Alexandra Caceres, DO [address] [place] [address] [phone] 12/01/2020 Nutrition Services Gastroenterology Melissa Omalley, [place] [address] [place] [address] 12/04/2020 Hem/Onc Treatment Hematology Oncology Maryellen, Chair 8 Hem Onc Scenery [address] [place] [address] [phone] 12/18/2020 Hem/Onc Treatment Hematology Oncology Maryellen, Chair 7 Hem Onc Sc[address] [place] [address] [phone] 01/01/2021 Office Visit Hematology Oncology Tono Sanchez MD [address] [place] [address] [phone] 01/21/2021 Office Visit Gastroenterology Lyssa Stout, [address] [place] [address] [phone] 09/09/2021 Imaging Radiology Health Maintenance Due Date [...] this encounter Implants Implanted Type Area Clinical Trial Assistant Device Identifier Shelf Expiration Date Model / Serial / Lot Microtech Sure Clip Implanted:Qty: 2 on 06/03/2020 by Hatch, Marten B, DO at OR [facility] Clip N/A: Colon 04/21/2022 [facility]-F-26-2 35-C-R / / [id number] documented as of this encounter Advance Directives Documents on File Type Date Recorded 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
--- OUTSIDE RECORDS SUMMARY | 2023-05-10 21:37 | External Medical Summary | Summary of Care ---
Author Name Unknown Organization [place] [address] Care Team Providers Care Bilingual Middle School Teacher Name Role Phone Maikel Caceres DO Primary Care Provider Reason for Visit * Reason Onset Date Comments Order Request 10/14/2020 Encounter Details Date Type Department Care Team Description 10/14/2020 Telephone [facility] [address] [place], [place] [id number] Maikel Caceres DO [address] [place] [address] [phone] Order Request Allergies Active Allergy Reactions Severity Noted Date Comments Adhesive Tape Itching 04/29/2020 Penicillins Rash 02/12/2008 Perflutren Protein A Microsph 2019 Definity-lower back pain documented as of this encounter (statuses as of 10/22/2020) Medications Medication Sig Dispensed Refills Start Date [...] 120 Vial 11 10/02/2019 Active nystatin (NYSTOP) 295224 UNIT/GM powder Apply topically to affected area [...] goal of less than 7.0% ([facility]) Inject 1.5mg (one pen) under the skin once weekly 6 mL 3 06/12/2020 Active BD Pen Needle Mini U/F 31G X 5 MM (Insulin Pen Needle)Indications:Ty pe 2 diabetes mellitus with hemoglobin A1c goal of less than 7.0% ([facility]) Use to inject insulin four times [...] goal of less than 7.0% ([facility]) Inject 25 units under the skin once a day 30 mL 3 08/31/2020 Active Dexcom G6 Computer Analyst Supervisor Device Use as directed. To test [...] Tab 1 09/19/2020 Active OneTouch Delica Plus [id number] TESTING once daily 100 Each 3 09/28/2020 [...] as of this encounter (statuses as of 10/22/2020) Active Problems Problem Noted Date Uncontrolled type [...] as of this encounter (statuses as of 10/22/2020) Resolved Problems Problem Noted Date Resolved Date [...] pain 01/24/2012 01/17/2017 Genetic Sleep Disorder Research Other*[id number] 05/13/2011 04/07/2016 Obstructive sleep apnea 01/18/2011 12/27/19 [...] as of this encounter (statuses as of 10/22/2020) Immunizations Name Administration Dates Next Due HEP [...] or bathing? 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-client engagement specialist helps 07/15/2020 Because of a physical, [...] Telephone Encounter - Josselin Gaspar LPN - 10/22/2020 10:57 AM EST Faxed. * Addendum Note - Maikel Caceres DO - 10/20/2020 9:49 AM EST Addended by: MAIKEL CACERES on: 10/20/2020 09:49 AM Modules accepted: Orders * Addendum Note - Josselin Gaspar LPN - 10/20/2020 8:34 AM EST Addended by: JOSSELIN GASPAR on: 10/20/2020 08:34 AM Modules accepted: Orders * Telephone Encounter - Josselin Gaspar LPN - 10/20/2020 8:34 AM EST DME pended for approval. * Telephone Encounter - Vivian Izquierdo LPN - 10/19/2020 11:53 AM EST Dulce returning call. Pt needs tie down straps to secure her w/c when traveling in her van for when she travels. It would be a DME "4 tie down straps to be used on wheelchair for a modified van." Please Fax to [phone] * Telephone Encounter - Yanira Graves LPN - 10/15/2020 12:23 PM EST Attempted to call Dulce at number provided - no answer and advised by voicemail message to not leavea message for her there but to call [phone] [employer] and have them try to reach her or leave a message for her to call back Called [phone] and advised that Dulce is away from her desk at this time and that she will leave her a message to call back * Telephone Encounter - Maikel Caceres DO - 10/15/2020 10:54 AM EST pls get more info, 1. What does the rx need to say specifically 2 and is this for her wheelchair? 3. Is this a DME order? * Telephone Encounter - Keyonna Barillas LPN - 10/14/2020 3:42 PM EST Please advise per below. Thank you. * Telephone Encounter - Imelda Galvan OSA - 10/14/2020 8:55 AM EST Dulce from [facility] (she is the patient's financial services counselor) is calling to get script for tie down straps for modified van. SHe wants the order faxed over to [employer]- fax [phone] documented in this encounter Plan of Treatment Upcoming Encounters Date Type Specialty Care Team Description 10/23/2020 Hem/Onc Treatment Hematology Oncology Maryellen, Chair [address] [place] [address] [phone] 10/31/2020 Appointment Radiology 11/02/2020 Office Visit [facility] [address] [facility] [place] [address] 11/06/2020 Hem/Onc Treatment Hematology Oncology Maryellen, Chair 6 Hem Onc Sc[address] [place] [address] [phone] 11/20/2020 Hem/Onc Treatment Hematology Oncology [place], Chair 1 Hem Onc Sc[address] [place] [address] [phone] 11/30/2020 Office Visit Family Medicine Maikel Caceres, DO [address] [place] [facility] [place] [address] [phone] 12/01/2020 Nutrition Services Gastroenterology Melissa Omalley RDN [address] [place] [address] [phone] 12/04/2020 Hem/Onc Treatment Hematology Oncology [place], Chair 8 Hem Onc Scenery [address] [place] [address] [phone] 12/18/2020 Hem/Onc Treatment Hematology Oncology [place], Chair 7 Hem Onc [address] [facility], [place] [address] [phone] 01/01/2021 Office Visit Hematology Oncology Tono Sanchez MD [address] [facility], [place] [address] [phone] 01/21/2021 Office Visit Gastroenterology Lyssa Stout CRNP [address] [facility] [place] [address] [phone] 09/09/2021 Imaging Radiology Health Maintenance Due Date [...] of this encounter Implants Implanted Type Area Laborer Shellfish Processing Device Identifier Shelf Expiration Date Model / Serial / Lot Microtech Sure Clip Implanted:Qty: 2 on 06/03/2020 by Janis Hatch DO at OR [facility] Clip N/A: Colon 04/21/2022 [facility]-F-26-2 35-C-R / / [id number] documented as of this encounter Visit Diagnoses Diagnosis Cerebral palsy, unspecified type (HCC)- Primary documented in this encounter Advance Directives Documents on File Type Date Recorded Patient Note Specialist Expl anation Advanced Directive service a [...] Name Relationship Healthcare Agent [facility] Communication Syed Bustos Spouse Emergency Contact
--- OUTSIDE RECORDS SUMMARY | 2023-05-10 21:38 | External Medical Summary | Summary of Care ---
Author Name Unknown Organization [place] [address] Care Team Providers Care Kitchen Hand Name Role Phone Alexandra Caceres DO Primary Care Provider [phone] Reason for Visit * Reason Onset Date Comments Order Request 10/14/2020 Encounter Details Date Type Department Care Team Description 10/14/2020 Telephone [facility] [address], [place] [id number] Alexandra Caceres DO [address] [place] [address] [phone] Order Request Allergies Active Allergy Reactions Severity Noted Date Comments Adhesive Tape Itching 04/29/2020 Penicillins Rash 02/12/2008 Perflutren Protein A Microsph 2019 Definity-lower back pain documented as of this encounter (statuses as of 10/20/2020) Medications Medication Sig Dispensed Refills Start Date [...] 120 Vial 11 10/02/2019 Active nystatin (NYSTOP) 768575 UNIT/GM powder Apply topically to affected area [...] 30 mL 3 08/31/2020 Active Dexcom G6 Mammal Control Agent Device Use as directed. To test [...] Tab 1 09/19/2020 Active OneTouch Delica Plus Lesaoi10S TESTING once daily 100 Each 3 09/28/2020 [...] as of this encounter (statuses as of 10/20/2020) Active Problems Problem Noted Date Uncontrolled type [...] as of this encounter (statuses as of 10/20/2020) Resolved Problems Problem Noted Date Resolved Date [...] pain 01/24/2012 01/17/2017 Genetic Sleep Disorder Research Other*[id number] 05/13/2011 04/07/2016 Obstructive sleep apnea 01/18/2011 12/27/19 [...] as of this encounter (statuses as of 10/20/2020) Immunizations Name Administration Dates Next Due HEP [...] or bathing? 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-wine blender helps 07/15/2020 Because of a physical, menta [...] encounter Miscellaneous Notes * Addendum Note - Josselin Gaspar LPN [...] for a modified van." Please Fax to [phone] * Telephone Encounter - Yanira Graves LPN - 10/15/2020 12:23 PM EST Attempted to call Dulce at number provided - no answer and advised by voicemail message to not leavea message for her there but to call [phone] Member Services and have them try to reach her or leave a message for her to call back Called [phone] and advised that Dulce is away from her desk at this time and that she will leave her a message to call back * Telephone Encounter - Alexandra Caceres DO - 10/15/2020 10:54 AM EST [...] - 10/14/2020 8:55 AM EST Dulce from [facility] (she is the patient's central service supply distributor) is calling to get script for tie down straps for modified van. SHe wants the order faxed over to [employer]- fax [phone] documented in this encounter Plan of Treatment Upcoming Encounters Date Type Specialty Care Team Description 10/23/2020 Hem/Onc Treatment Hematology Oncology [place], Chair 6 Hem Onc Sc[address] [place] [address] [phone] 10/28/2020 Appointment Radiology 11/02/2020 [facility] [address], [place] [address] 11/06/2020 Hem/Onc Treatment Hematology Oncology [place], Chair 6 Hem Onc Sc[address] [place] [address] [phone] 11/20/2020 Hem/Onc Treatment Hematology Oncology [place], Chair 1 Hem Onc Sc[address] [place] [address] [phone] 11/30/2020 Office Visit Family Medicine Alexandra Caceres, DO [address] [place], [place] [address] 12/01/2020 Nutrition Services Gastroenterology Melissa Omalley, [place] [address] [place], [place] [address] 12/04/2020 Hem/Onc Treatment Hematology Oncology [place], Chair 8 Hem Onc Scen[address] [place] [address] [phone] 12/18/2020 Hem/Onc Treatment Hematology Oncology [place], Chair 7 Hem Onc [address] [place] [address] [phone] 01/01/2021 Office Visit Hematology Oncology Tono Sanchez MD [address] [place] [id number] 01/21/2021 Office Visit Gastroenterology Lyssa Stout CRNP [address] [facility] [place] [address] 09/09/2021 Imaging Radiology Health Maintenance Due [...] this encounter Implants Implanted Type Area Pre Certification Specialist Device Identifier Shelf Expiration Date Model / Serial / Lot Microtech Sure Clip Implanted:Qty: 2 on 06/03/2020 by Janis Hatch DO at OR [facility] Clip N/A: Colon 04/21/2022 [facility]-F-26-2 35-C-R / / [id number] documented as of this encounter Advance Directives Documents on File Type Date Recorded Patient Rotary Kiln Operator Expl anation Advanced Directive service a [...] Agent [facility] p Communication Syed Juli Spouse Emergency Contact
--- OUTSIDE RECORDS SUMMARY | 2023-05-10 21:38 | External Medical Summary | Summary of Care ---
Author Name Unknown Organization [facility] Address [facility] [place] [address] Care Team Providers Care Linoleum Mechanic Name Role Phone Alexandra Caceres DO Primary Care Provider [phone] Reason for Visit * Reason Onset Date Comments Advice 10/15/2020 Encounter Details Date Type Department Care Team Description 10/15/2020 Telephone [facility] [address] [place], [place] [id number] Alexandra Caceres DO [address] [place] [address] [phone] Advice Allergies Active Allergy Reactions Severity Noted [...] 120 Vial 11 10/02/2019 Active nystatin (NYSTOP) 623032 UNIT/GM powder Apply topically to affected area [...] less than 7.0% ([facility]) Inject 1.5mg (one pen) under [...] less than 7.0% ([facility]) Inject 25 units under the skin once a day 30 mL 3 08/31/2020 Active Dexcom G6 Aerial Hurricane Hunter Device Use as directed. To test blood [...] Tab 1 09/19/2020 Active OneTouch Delica Plus Vtphou30A TESTING once daily 100 Each 3 09/28/2020 [...] pain 01/24/2012 01/17/2017 Genetic Sleep Disorder Research Other*[id number] 05/13/2011 04/07/2016 Obstructive sleep apnea 01/18/2011 12/27/19 [...] or bathing? 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-emergency services director helps 07/15/2020 Because of a physical, [...] encounter Miscellaneous Notes * Telephone Encounter - Christopher Garcia OSA - 10/20/2020 12:43 PM EST Pt states [employer] [facility] [employer] ([id number]) is going to be contact Dr. Caceres with the information to on it. PCP will need to fill it out and send it back so she can get her supplies. * Telephone Encounter - Indira Hudson [facility] - 10/15/2020 2:15 PM EST Patient Phone Numbers Called and spoke with patient. Patient reports she currently has Xochitl but will be getting Dexcom. Patient will bring Dexcom to next [facility] appt and will review in more detail. Reviewed that Xochitl sensor needs to be changed every 14 days and Dexcom sensor needs to be changed every 10 days. She verbalized understanding. Will follow-up at inperson [facility] appt on 11/02 Indira Hudson RP, Pharm [...] was never told that Could someone from [facility] call her regarding her Dexcom Please advise * Telephone Encounter - Jaci Bangura CPhT - 10/15/2020 10:32 AM EST Patient calling to request a order for Dexcom G6 Sensor , she received 1 in the middle of September in the mail , not sure where it is coming from please advise patient if there is currently a order placed [phone] Jaci Jiang Office Inspector II Pharmacy Refill Call Center 110:35 AM documented in this encounter Plan of Treatment Upcoming Encounters Date Type Specialty Care Team Description 10/23/2020 Hem/Onc Treatment Hematology Oncology [place], Chair 6 Hem Onc Sc[address]ery [address] [place] [address] [phone] 10/28/2020 Appointment Radiology 11/02/2020 Office [facility] [address] [facility] [address] [phone] 11/06/2020 Hem/Onc Treatment Hematology Oncology [place], Chair [address] Hem Onc [address] [place] [address] [phone] 11/20/2020 Hem/Onc Treatment Hematology Oncology [place], Chair [address] Hem Onc [address] [place] [address] [phone] 11/30/2020 Office Visit Family Medicine [facility] Caceres, [address] [facility] [address] 12/01/2020 Nutrition Services Gastroenterology Melissa Omalley, [place] [address] [facility] [address] [phone] 12/04/2020 Hem/Onc Treatment Hematology Oncology [place], Chair [address] Hem On[address] [place] [address] [phone] 12/18/2020 Hem/Onc Treatment Hematology Oncology [place], Chair [address] Hem [address] [place] [address] [phone] 01/01/2021 Office Visit [facility]ematology Oncology [facility] [address] [facility] [place] [address] [phone] 01/21/2021 Office Visit Gastroenterology Lyssa Stout CRNP [address] [facility] [place] [address] [phone] 09/09/2021 Imaging Radiology Health Maintenance Due Date [...] of this encounter Implants Implanted Type Area Runner Worker Device Identifier Shelf Expiration Date Model / Serial / Lot Microtech Sure Clip Implanted:Qty: 2 on 06/03/2020 by Janis Hatch DO at OR [facility] Clip N/A: Colon 04/21/2022 [facility]-F-26-2 35-C-R / / [id number] documented as of this encounter Advance Directives Documents on File Type Date Recorded Patient Mainspring Former Brace End Expl anation Advanced Directive service a kerri [...]
--- OUTSIDE RECORDS SUMMARY | 2023-05-10 21:38 | External Medical Summary | Summary of Care ---
Author Name Unknown Organization [place] [address] Care Team Providers Care Edi Developer Name Role Phone Maikel Caceres DO Primary Care Provider Reason for Visit * Reason Onset Date Comments Order Request 10/14/2020 Encounter Details Date Type Department Care Team Description 10/14/2020 Telephone [facility] [address], [place] [id number] Maikel Caceres DO [address] [place] [address] [phone] Order Request Allergies Active Allergy Reactions Severity [...] 120 Vial 11 10/02/2019 Active nystatin (NYSTOP) 508432 UNIT/GM powder Apply topically to affected area [...] than 7.0% ([facility]) Inject 1.5mg (one pen) under [...] than 7.0% ([facility]) Inject 25 units under the skin once a day 30 mL 3 08/31/2020 Active Dexcom G6 Compositor Apprentice Device Use as directed. To test [...] Tab 1 09/19/2020 Active OneTouch Delica Plus [id number] TESTING once daily 100 Each 3 09/28/2020 [...] pain 01/24/2012 01/17/2017 Genetic Sleep Disorder Research Other*[id number] 05/13/2011 04/07/2016 Obstructive sleep apnea 01/18/2011 12/27/19 [...] or bathing? 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-caregiver services home helps 07/15/2020 Because of a physical, menta [...] for a modified van." Please Fax to [phone] * Telephone Encounter - Yanira Graves LPN - 10/15/2020 12:23 PM EST Attempted to call Dulce at number provided - no answer and advised by voicemail message to not leavea message for her there but to call [phone] [employer] and have them try to reach her or leave a message for her to call back Called [phone] and advised that Dulce is away from [...] - 10/14/2020 8:55 AM EST Dulce from [facility] (she is the patient's visitor services information assistant) is calling to get script for tie down straps for modified van. SHe wants the order faxed over to [employer]- fax [phone] documented in this encounter Plan of Treatment Upcoming Encounters Date Type Specialty Care Team Description 10/23/2020 Hem/Onc Treatment Hematology Oncology Maryellen, Chair 6 Hem Onc Sc[address] [place] [id number] 10/28/2020 Appointment Radiology 11/02/2020 Office Visit [facility] [address] [place] [address] 11/06/2020 Hem/Onc Treatment Hematology Oncology Maryellen, Chair 6 Hem Onc Scenery [address] [place] [id number] 11/20/2020 Hem/Onc Treatment Hematology Oncology [place], Chair 1 Hem Onc Scenery [address] [place] [id number] 11/30/2020 Office Visit Family Medicine Maikel Caceres, [address] [place], [place] [address] 12/01/2020 Nutrition Services Gastroenterology Melissa Omalley RDN [address] [place] [address] [place] [address] [phone] 12/04/2020 Hem/Onc Treatment Hematology Oncology Maryellen, Chair 8 Hem Onc Scenery [address] [place] [address] [phone] 12/18/2020 Hem/Onc Treatment Hematology Oncology Maryellen, Chair 7 Hem Onc Scenery [address] [place] [address] [phone] 01/01/2021 Office Visit [facility] [address] [facility] [address] [phone] 01/21/2021 Office Visit Gastroenterology Lyssa Stout CRNP [address] [place] [address] [phone] 09/09/2021 Imaging Radiology Health Maintenance Due Date [...] of this encounter Implants Implanted Type Area Canal Driver Device Identifier Shelf Expiration Date Model / Serial / Lot Microtech Sure Clip Implanted:Qty: 2 on 06/03/2020 by Janis Hatch DO at OR [facility] Clip N/A: Colon 04/21/2022 [facility]-F-26-2 35-C-R / / [id number] documented as of this encounter Visit Diagnoses Diagnosis Cerebral palsy, unspecified type (HCC)- Primary documented in this encounter Advance Directives Documents on File Type Date Recorded Patient Criminal Investigator Expl anation Advanced Directive service a [...]
--- OUTSIDE RECORDS SUMMARY | 2023-05-10 21:38 | External Medical Summary | Summary of Care ---
Author Name Unknown Organization [facility] Address [facility] [place] [address] Care Team Providers Care Implementation Advisor Name Role Phone Alexandra Caceres DO Primary Care Provider [phone] Reason for Visit * Reason Onset Date Comments Advice 10/15/2020 Encounter Details Date Type Department Care Team Description 10/15/2020 Telephone [facility] [address], [place] [id number] Alexandra Caceres DO [address] [place] [address] [phone] Advice Allergies Active Allergy Reactions Severity Noted [...] 120 Vial 11 10/02/2019 Active nystatin (NYSTOP) 664591 UNIT/GM powder Apply topically to affected area [...] than 7.0% ([facility]) Inject 1.5mg (one pen) under the skin once weekly 6 mL 3 06/12/2020 Active BD Pen Needle Mini U/F 31G X 5 MM (Insulin Pen Needle)Indications:Ty pe 2 diabetes mellitus with hemoglobin A1c goal of less than 7.0% ([facility]) Use to inject insulin four [...] than 7.0% ([facility]) Inject 25 units under the skin once a day 30 mL 3 08/31/2020 Active Dexcom G6 Archeologist Classical Device Use as directed. To test blood [...] Tab 1 09/19/2020 Active OneTouch Delica Plus Jzpgqy90V TESTING once daily 100 Each 3 09/28/2020 [...] pain 01/24/2012 01/17/2017 Genetic Sleep Disorder Research Other*[id number] 05/13/2011 04/07/2016 Obstructive sleep apnea 01/18/2011 12/27/19 [...] or bathing? 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-kayak maker helps 07/15/2020 Because of a physical, menta [...] PM EST Pt states [facility] [employer] ([id number]) is going to be contact Dr. Caceres [...] Dexcom. Patient will bring Dexcom to next [facility] appt and will review in more detail. Reviewed that Xochitl sensor needs to be changed every 14 days and Dexcom sensor needs to be changed every 10 days. She verbalized understanding. Will follow-up at inperson [facility] appt on 11/02 Indira Hudson RPh, Pharm [...] was never told that Could someone from [facility] call her regarding her Dexcom Please advise * Telephone Encounter - Jaci Bangura CPhT - 10/15/2020 10:32 AM EST Patient calling to request a order for Dexcom G6 Sensor , she received 1 in the middle of September in the mail , not sure where it is coming from please advise patient if there is currently a order placed [phone] Jaci Jiang Molder Machine Tender II Pharmacy Refill Call Center 110:35 AM documented in this encounter Plan of Treatment Upcoming Encounters Date Type Specialty Care Team Description 10/23/2020 Hem/Onc Treatment Hematology Oncology [place], Chair 6 Hem Onc Scenery [address] [place] [address] [phone] 10/28/2020 Appointment Radiology 11/02/2020 Office Visit [facility] [address] [place] [address] [phone] 11/06/2020 Hem/Onc Treatment Hematology Oncology [place], Chair 6 Hem Onc Scenery [address] [place] [address] [phone] 11/20/2020 Hem/Onc Treatment Hematology Oncology [place], Chair 1 Hem Onc Scenery [address] [place] [address] [phone] 11/30/2020 Office Visit Family Medicine Alexandra Caceres, [address] [place] [address] [phone] 12/01/2020 Nutrition Services Gastroenterology Melissa Omalley, [place] [address] [place] [address] [phone] 12/04/2020 Hem/Onc Treatment Hematology Oncology [place], Chair 8 Hem Onc Scenery [address] [place] [address] [phone] 12/18/2020 Hem/Onc Treatment Hematology Oncology [place], Chair 7 Hem Onc Scenery [address] [place] [address] [phone] 01/01/2021 Office Visit Hematology Oncology Tono Sanchez MD [address] [place] [address] [phone] 01/21/2021 Office Visit Gastroenterology Lyssa Stout CRNP [address] [facility] [place] [address] [phone] 09/09/2021 Imaging Radiology Health Maintenance Due Date [...] this encounter Implants Implanted Type Area Manager Subway Device Identifier Shelf Expiration Date Model / Serial / Lot Microtech Sure Clip Implanted:Qty: 2 on 06/03/2020 by Janis Hatch DO at OR [facility] Clip N/A: Colon 04/21/2022 [facility]-F-26-2 35-C-R / / [id number] documented as of this encounter Advance Directives Documents on File Type Date Recorded Patient Compliance Intern Expl anation Advanced Directive service a [...]
--- OUTSIDE RECORDS SUMMARY | 2023-05-10 21:39 | External Medical Summary | Summary of Care ---
Author Name Unknown Organization [place] [address] Care Team Providers Care Voicer Name Role Phone Alexandra Caceres DO Primary Care Provider Reason for Visit * Reason Onset Date Comments Order Request 10/12/2020 Encounter Details Date Type Department Care Team Description 10/12/2020 Telephone [facility] [address], [place] [id number] Alexandra Caceres DO [address] [place] [address] [phone] Order Request Allergies Active Allergy Reactions Severity Noted Date Comments Adhesive Tape Itching 04/29/2020 Penicillins Rash 02/12/2008 Perflutren Protein A Microsph 2019 Definity-lower back pain documented as of this encounter (statuses as of 10/14/2020) Medications Medication Sig Dispensed Refills Start Date [...] 120 Vial 11 10/02/2019 Active nystatin (NYSTOP) 362169 UNIT/GM powder Apply topically to affected area [...] than 7.0% ([facility]) Inject 1.5mg (one pen) under the [...] 30 mL 3 08/31/2020 Active Dexcom G6 Food Service Driver Device Use as directed. To test [...] Tab 1 09/19/2020 Active OneTouch Delica Plus Gjvtyt63M TESTING once daily 100 Each 3 09/28/2020 [...] as of this encounter (statuses as of 10/14/2020) Active Problems Problem Noted Date Uncontrolled type [...] as of this encounter (statuses as of 10/14/2020) Resolved Problems Problem Noted Date Resolved Date [...] pain 01/24/2012 01/17/2017 Genetic Sleep Disorder Research Other*[id number] 05/13/2011 04/07/2016 Obstructive sleep apnea 01/18/2011 12/27/19 [...] as of this encounter (statuses as of 10/14/2020) Immunizations Name Administration Dates Next Due HEP [...] or bathing? 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-nutrition helper helps 07/15/2020 Because of a physical, [...] Telephone Encounter - Josselin Gaspar LPN - 10/14/2020 8:53 AM EST Faxed to number provided. * Telephone Encounter - Marcelle Rosales OSA - 10/12/2020 1:59 PM EST An order was requested for this patient. Name of Requesting Provider: Ai from [employer] Order Requested: Wheeled Shower Seat Diagnosis/Reason for Request: Pt is unable to stand and pivot to get onto her regular shower chair Does the order need to be faxed somewhere? If so, where?: Yes, [facility] Fax Number, if applicable: [phone] Call Back Number: [phone] documented in this encounter Plan of Treatment Upcoming Encounters Date Type Specialty Care Team Description 10/19/2020 Imaging Radiology 10/23/2020 Hem/Onc Treatment Hematology Oncology [place], Chair 6 Hem Onc Scenery [address] [place] [address] [phone] 11/02/2020 Office Visit [facility] [address] [place] [address] 11/06/2020 Hem/Onc Treatment Hematology Oncology [place], Chair 6 Hem Onc Scenery [address] [place] [address] [phone] 11/20/2020 Hem/Onc Treatment Hematology Oncology [place], Chair 1 Hem Onc Scenery [address] [place] [address] [phone] 11/30/2020 Office Visit Family Medicine Alexandra Caceres, [address], [place] [address] 12/01/2020 Nutrition Services Gastroenterology Melissa Omalley RDN [address] [place] [address] [phone] 12/04/2020 Hem/Onc Treatment Hematology Oncology [place], Chair 8 Hem Onc Scenery [address] [place] [address] [phone] 12/18/2020 Hem/Onc Treatment Hematology Oncology [place], Chair 7 Hem Onc Scenery [address] [place] [address] [phone] 01/01/2021 Office Visit Hematology Oncology Tono Sanchez MD 200 [place] [address] [phone] 01/21/2021 Office Visit [facility] [place] [address] [phone] 09/09/2021 Imaging Radiology Health Maintenance Due Date [...] of this encounter Implants Implanted Type Area Wardrobe Attendant Device Identifier Shelf Expiration Date Model / Serial / Lot Microtech Sure Clip Implanted:Qty: 2 on 06/03/2020 by Janis Hatch DO at OR [facility] Clip N/A: Colon 04/21/2022 [facility]-F-26-2 35-C-R / / [id number] documented as of this encounter Visit Diagnoses Diagnosis Cerebral palsy, unspecified type (HCC)- Primary documented in this encounter Advance Directives Documents on File Type Date Recorded Patient Allied Health Instructor Expl anation Advanced Directive service a [...]
--- OUTSIDE RECORDS SUMMARY | 2023-05-10 21:39 | External Medical Summary | Summary of Care ---
Author Name Unknown Organization [place] [address] Care Team Providers Care Ux Design Manager Name Role Phone Alexandra Caceres DO Primary Care Provider [phone] Reason for Visit * Reason Onset Date Comments Order Request 10/14/2020 Encounter Details Date Type Department Care Team Description 10/14/2020 Telephone [facility] [address], [place] [address] Alexandra Caceres DO [address] [place] [address] [phone] Order Request Allergies Active Allergy Reactions Severity Noted Date Comments Adhesive Tape Itching 04/29/2020 Penicillins Rash 02/12/2008 Perflutren Protein A Microsph 2019 Definity-lower back pain documented as of this encounter (statuses as of 10/15/2020) Medications Medication Sig Dispensed Refills Start Date [...] 120 Vial 11 10/02/2019 Active nystatin (NYSTOP) 958009 UNIT/GM powder Apply topically to affected area [...] less than 7.0% ([facility]) Inject 1.5mg (one pen) under the skin once weekly 6 mL 3 06/12/2020 Active BD Pen Needle Mini U/F 31G X 5 MM (Insulin Pen Needle)Indications:Ty pe 2 diabetes mellitus with hemoglobin A1c goal of less than 7.0% ([facility]) Use to inject insulin four [...] less than 7.0% ([facility]) Inject 25 units under the skin once a day 30 mL 3 08/31/2020 Active Dexcom G6 Solar Photovoltaic Systems Engineer Device Use as directed. To test [...] Tab 1 09/19/2020 Active OneTouch Delica Plus [id number] TESTING once daily 100 Each 3 09/28/2020 [...] as of this encounter (statuses as of 10/15/2020) Active Problems Problem Noted Date Uncontrolled type [...] as of this encounter (statuses as of 10/15/2020) Resolved Problems Problem Noted Date Resolved Date [...] pain 01/24/2012 01/17/2017 Genetic Sleep Disorder Research Other*[id number] 05/13/2011 04/07/2016 Obstructive sleep apnea 01/18/2011 12/27/19 [...] as of this encounter (statuses as of 10/15/2020) Immunizations Name Administration Dates Next Due HEP [...] or bathing? 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-lapel padder helps 07/15/2020 Because of a physical, menta [...] - 10/14/2020 8:55 AM EST Dulce from [facility] (she is the patient's service writer) is calling to get script for tie down straps for modified van. SHe wants the order faxed over to [employer]- fax [phone] documented in this encounter Plan of Treatment Upcoming Encounters Date Type Specialty Care Team Description 10/19/2020 Imaging Radiology 10/23/2020 Hem/Onc Treatment Hematology Oncology Maryellen, Chair 6 Hem Onc Scenery [address] [place] [address] [phone] 11/02/2020 Office Visit Pharmacy [facility] [address] [place] [address] 11/06/2020 Hem/Onc Treatment Hematology Oncology [place], Chair 6 Hem Onc Scenery [address] [place] [address] [phone] 11/20/2020 Hem/Onc Treatment Hematology Oncology [place], Chair 1 Hem Onc Scenery [address] [place] [address] [phone] 11/30/2020 Office Visit Family Medicine Alexandra Caceres, DO [address] [place] [address] [phone] 12/01/2020 Nutrition Services Gastroenterology Melissa Omalley, [place] [address] [place] [address] [phone] 12/04/2020 Hem/Onc Treatment Hematology Oncology [place], Chair 8 Hem Onc Scenery [address] [place] [address] [phone] 12/18/2020 Hem/Onc Treatment Hematology Oncology Maryellen, Chair 7 Hem Onc Scenery [address] [place] [address] [phone] 01/01/2021 Office Visit Hematology Oncology Tono Sanchez MD [address] [facility] [address] [phone] 01/21/2021 Office Visit Gastroenterology Lyssa Stout CRNP [address] [facility] [place] [address] [phone] 09/09/2021 Imaging Radiology Health Maintenance Due Date [...] of this encounter Implants Implanted Type Area Fiction And Nonfiction Author Device Identifier Shelf Expiration Date Model / Serial / Lot Microtech Sure Clip Implanted:Qty: 2 on 06/03/2020 by Janis Hatch DO at OR [facility] Clip N/A: Colon 04/21/2022 [facility]-F-26-2 35-C-R / / [id number] documented as of this encounter Advance Directives Documents on File Type Date Recorded Patient Senior Business Analyst Expl anation Advanced Directive service a [...] Relationship Healthcare Agent [facility] Communication Syed Bustos Spouse Emergency Contact
--- OUTSIDE RECORDS SUMMARY | 2023-05-10 21:39 | External Medical Summary | Summary of Care ---
Author Name Unknown Organization [facility] Address [facility] [place] [address] Care Team Providers Care Wireless Team Member Name Role Phone Alexandra Caceres DO Primary Care Provider [phone] Reason for Visit * Reason Onset Date Comments Advice 10/15/2020 Encounter Details Date Type Department Care Team Description 10/15/2020 Telephone [facility] [address], [place] [id number] Alexandra Caceres DO [address] [place] [address] [phone] Advice Allergies Active Allergy Reactions Severity Noted [...] 120 Vial 11 10/02/2019 Active nystatin (NYSTOP) 476541 UNIT/GM powder Apply topically to affected area [...] 7.0% ([facility]) Inject 1.5mg (one pen) under the [...] 7.0% ([facility]) Inject 25 units under the skin once a day 30 mL 3 08/31/2020 Active Dexcom G6 Branch Rental Manager Device Use as directed. To [...] Tab 1 09/19/2020 Active OneTouch Delica Plus Aeazdq81C TESTING once daily 100 Each 3 09/28/2020 [...] pain 01/24/2012 01/17/2017 Genetic Sleep Disorder Research Other*[id number] 05/13/2011 04/07/2016 Obstructive sleep apnea 01/18/2011 12/27/19 [...] or bathing? 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-air pollution engineer helps 07/15/2020 Because of a physical, [...] Notes * Telephone Encounter - Indira Hudson, [facility] - 10/15/2020 2:15 PM EST Patient Phone Numbers Called and spoke with patient. Patient reports she currently has Xochitl but will be getting Dexcom. Patient will bring Dexcom to next [facility] appt and will review in more detail. Reviewed that Xochitl sensor needs to be changed every 14 days and Dexcom sensor needs to be changed every 10 days. She verbalized understanding. Will follow-up at inperson [facility] appt on 11/02 Indira Hudson [facility], Pharm D, BCACP Clinical Pharmacist 10/15/20 2:15 [...] was never told that Could someone from [facility] call her regarding her Dexcom Please advise * Telephone Encounter - Jaci Bangura CPhT - 10/15/2020 10:32 AM EST Patient calling to request a order for Dexcom G6 Sensor , she received 1 in the middle of September in the mail , not sure where it is coming from please advise patient if there is currently a order placed [phone] Jaci Jiang Commercial Real Estate Manager II Pharmacy Refill Call Center 110:35 AM documented in this encounter Plan of Treatment Upcoming Encounters Date Type Specialty Care Team Description 10/19/2020 Imaging Radiology 10/23/2020 Hem/Onc Treatment Hematology Oncology [place], Chair 6 Hem Onc Scenery [address] [facility] [address] [phone] 11/02/2020 Office Visit Pharmacy [facility] [address] [place], [place] [address] [address] [phone] 11/06/2020 Hem/Onc Treatment Hematology Oncology [place], Chair 6 Hem Onc Scenery [address] [place] [address] [phone] 11/20/2020 Hem/Onc Treatment Hematology Oncology [place], Chair 1 Hem Onc Scenery [address] [place], [place] [address] [phone] 11/30/2020 Office Visit Family Medicine Alexandra Caceres DO [address] [facility], [place] [address] [phone] 12/01/2020 Nutrition Services Gastroenterology Melissa Omalley, [place] [address] [facility] [place] [id number] 12/04/2020 Hem/Onc Treatment Hematology Oncology [place], Chair 8 Hem Onc Scenery [address] [place] [id number] 12/18/2020 Hem/Onc Treatment Hematology Oncology [place], Chair 7 Hem Onc Scenery [address] [place] [address] [phone] 01/01/2021 Office Visit Hematology Oncology Tono Sanchez MD [address] [facility], [place] [address] 01/21/2021 Office Visit [facility]astroenterology [facility]out CRNP [address] [facility] [address] [phone] 09/09/2021 Imaging Radiology Health Maintenance Due Date [...] of this encounter Implants Implanted Type Area Mobile Solutions Architect Device Identifier Shelf Expiration Date Model / Serial / Lot Microtech Sure Clip Implanted:Qty: 2 on 06/03/2020 by Janis Hatch DO at OR [facility] Clip N/A: Colon 04/21/2022 [facility]-F-26-2 35-C-R / / [id number] documented as of this encounter Advance Directives Documents on File Type Date Recorded Patient Rvda Master Certified Rv Technician Expl anation Advanced Directive service a [...]
--- OUTSIDE RECORDS SUMMARY | 2023-05-10 21:39 | External Medical Summary | Summary of Care ---
Author Name Unknown Organization [place] [address] Care Team Providers Care Health Information Assistant Name Role Phone Alexandra Caceres DO Primary Care Provider [phone] Reason for Visit * Reason Onset Date Comments Order Request 10/14/2020 Encounter Details Date Type Department Care Team Description 10/14/2020 Telephone [facility] [address], [place] [id number] Alexandra Caceres DO [address] [place] [address] [phone] Order Request Allergies Active Allergy Reactions Severity Noted Date Comments Adhesive Tape Itching 04/29/2020 Penicillins Rash 02/12/2008 Perflutren Protein A Microsph 2019 Definity-lower back pain documented as of this encounter (statuses as of 10/19/2020) Medications Medication Sig Dispensed Refills Start Date [...] 120 Vial 11 10/02/2019 Active nystatin (NYSTOP) 550884 UNIT/GM powder Apply topically to affected area [...] mL 3 08/31/2020 Active Dexcom G6 Rn Clinical Resource Device Use as directed. To test blood [...] Tab 1 09/19/2020 Active OneTouch Delica Plus [id number] TESTING once daily 100 Each 3 09/28/2020 [...] as of this encounter (statuses as of 10/19/2020) Active Problems Problem Noted Date Uncontrolled type [...] as of this encounter (statuses as of 10/19/2020) Resolved Problems Problem Noted Date Resolved Date [...] pain 01/24/2012 01/17/2017 Genetic Sleep Disorder Research Other*[id number] 05/13/2011 04/07/2016 Obstructive sleep apnea 01/18/2011 12/27/19 [...] as of this encounter (statuses as of 10/19/2020) Immunizations Name Administration Dates Next Due HEP [...] bathing? 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-order puller helps 07/15/2020 Because of a physical, menta [...] for a modified van." Please Fax to [phone] * Telephone Encounter - Yanira Graves LPN - 10/15/2020 12:23 PM EST Attempted to call Dulce at number provided - no answer and advised by voicemail message to not leavea message for her there but to call [phone] Member Services and have them try to reach her or leave a message for her to call back Called [phone] and advised that Dulce is away from [...] HOSPITAL Home [facility] (she is the patient's extension service specialist) is calling to get script for tie down straps for modified van. SHe wants the order faxed over to [employer]- fax [phone] documented in this encounter Plan of Treatment Upcoming Encounters Date Type Specialty Care Team Description 10/19/2020 Imaging Radiology 10/23/2020 Hem/Onc Treatment Hematology Jonas Bojorquez, Chair 6 Hem Onc Scen[address] [place] [address] [phone] 11/02/2020 Office Visit Pharmacy [facility] [address] [place], [place] [address] [id number] 11/06/2020 Hem/Onc Treatment Hematology Oncology Maryellen, Chair 6 Hem Onc Scenery [address] [place] [address] [phone] 11/20/2020 Hem/Onc Treatment Hematology Oncology [place], Chair 1 Hem Onc Scenery [address] [place] [address] [phone] 11/30/2020 Office Visit Family Medicine Alexandra Caceres, DO [address], [place] [address] 12/01/2020 Nutrition Services Gastroenterology Melissa Omalley, RDN [address] [place] [id number] 12/04/2020 Hem/Onc Treatment Hematology [place]cology [place], Chair 8 Hem Onc Scenery [address] [place] [address] [phone] 12/18/2020 Hem/Onc Treatment Hematology Oncology [place], Chair 7 Hem Onc Sc[address] [place] [address] [phone] 01/01/2021 Office Visit Hematology Oncology Tono Sanchez [facility] [address] [facility] [id number] 01/21/2021 Office Visit [facility]astroenterology Lyssa Stout CR[facility] [address] [facility] [address] 09/09/2021 Imaging Radiology Health Maintenance Due [...] of this encounter Implants Implanted Type Area Anthropological Linguist Device Identifier Shelf Expiration Date Model / Serial / Lot Microtech Sure Clip Implanted:Qty: 2 on 06/03/2020 by Janis Hatch DO at OR [facility] Clip N/A: Colon 04/21/2022 [facility]-F-26-2 35-C-R / / [id number] documented as of this encounter Advance Directives Documents on File Type Date Recorded Patient Wash Oil Pump Operator Helper Expl anation Advanced Directive service a kreri default Advanced Directive Advanced Directive Advanced Directive [...]
--- OUTSIDE RECORDS SUMMARY | 2023-05-10 21:39 | External Medical Summary | Summary of Care ---
Author Name Unknown Organization [place] [address] Care Team Providers Care Master Automotive Technician Name Role Phone Alexandra Caceres DO Primary Care Provider Reason for Visit * Reason Onset Date Comments Order Request 10/14/2020 Encounter Details Date Type Department Care Team Description 10/14/2020 Telephone [facility] [address], [place] [id number] Alexandra Caceres DO [address] [place] [address] [phone] Order Request Allergies Active Allergy Reactions Severity [...] 120 Vial 11 10/02/2019 Active nystatin (NYSTOP) 877910 UNIT/GM powder Apply topically to affected area [...] 30 mL 3 08/31/2020 Active Dexcom G6 Mixer Operator Tablets Device Use as directed. To test blood [...] Tab 1 09/19/2020 Active OneTouch Delica Plus [id number] TESTING once daily 100 Each 3 09/28/2020 [...] pain 01/24/2012 01/17/2017 Genetic Sleep Disorder Research Other*[id number] 05/13/2011 04/07/2016 Obstructive sleep apnea 01/18/2011 12/27/19 [...] or bathing? 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-home health aide caregiver helps 07/15/2020 Because of a physical, [...] message for her there but to call [phone] Member Services and have them try to reach her or leave a message for her to call back Called [phone] and advised that Dulce is away from [...] a DME order? * Telephone Encounter - Keyonan Barillas LPN - 10/14/2020 3:42 PM EST Please advise per below. Thank you. * Telephone Encounter - Imelda Galvan OSA - 10/14/2020 8:55 AM EST Dulce from [facility] Home Health (she is the patient's equipment service engineer) is calling to get script for tie down straps for modified van. SHe wants the order faxed over to [employer]- fax [phone] documented in this encounter Plan of Treatment Upcoming Encounters Date Type Specialty Care Team Description 10/19/2020 Imaging Radiology 10/23/2020 Hem/Onc Treatment Hematology Oncology [place], Chair 6 Hem Onc Scenery [address] [place] [address] [phone] 11/02/2020 Office Visit [facility] [address] [facility] [address] [phone] 11/06/2020 Hem/Onc Treatment Hematology Oncology [place], Chair 6 Hem Onc Scenery [address] [place] [address] [phone] 11/20/2020 Hem/Onc Treatment Hematology [place]cology [place], Chair 1 Hem Onc Scenery [address] [place] [address] [phone] 11/30/2020 Office Visit Family Medicine Alexandra Caceres DO [address] [facility] [address] [phone] 12/01/2020 Nutrition Services Gastroenterology Melissa Omalley, [place] [address] [place] [address] 12/04/2020 Hem/Onc Treatment Hematology Oncology [place], Chair 8 Hem Onc Scenery 200 [facility] [place] [address] [phone] 12/18/2020 Hem/Onc Treatment Hematology Oncology [place], Chair 7 Hem Onc Scenery 200 [facility] [place] [address] [phone] 01/01/2021 Office Visit Hematology [facility]cology [facility] [address] [facility] [place] [id number] 01/21/2021 Office Visit Gastroenterology Lyssa Stout CRNP [address] [facility] [place] [address] [phone] 09/09/2021 Imaging Radiology Health Maintenance Due Date [...] of this encounter Implants Implanted Type Area Head Piece Assembler Device Identifier Shelf Expiration Date Model / Serial / Lot Microtech Sure Clip Implanted:Qty: 2 on 06/03/2020 by Janis Hatch DO at OR [facility] Clip N/A: Colon 04/21/2022 [facility]-F-26-2 35-C-R / / [id number] documented as of this encounter Advance Directives Documents on File Type Date Recorded Patient English Professor Expl anation Advanced Directive service a [...] Agents on File Name Relationship Healthcare Agent Romainvt p Communication Syed Juli Spouse Emergency Contact
--- OUTSIDE RECORDS SUMMARY | 2023-05-10 21:40 | External Medical Summary | Summary of Care ---
Author Name Unknown Organization [place] [address] Care Team Providers Care Footwear Sales Coordinator Name Role Phone Alexandra Caceres Primary Care Provider Reason for Visit * Reason Onset Date Comments Medication Refill 10/09/2020 Encounter Details Date Type Department Care Team Description 10/09/2020 Refill Hematology/Oncology Treatment, [address] [place] [address] Chelle Sanchez MD 200 [place] [address] [phone] Iron deficiency anemia due to chronic blood loss*; Pancytopenia (HCC) Allergies Active Allergy Reactions Severity Noted Date Comments Adhesive Tape Itching 04/29/2020 Penicillins Rash 02/12/2008 Perflutren Protein A Microsph 2019 Definity-lower back pain documented as of this encounter (statuses as of 10/09/2020) Medications Medication Sig Dispensed Refills Start Date [...] 120 Vial 11 10/02/2019 Active nystatin (NYSTOP) 522500 UNIT/GM powder Apply topically to affected area [...] of less than 7.0% ([facility]) Inject 1.5mg (one pen) under the skin [...] of less than 7.0% ([facility]) Inject 25 units under the skin once a day 30 mL 3 08/31/2020 Active Dexcom G6 Commercial Light Fixture Assembler Device Use as directed. To test [...] Tab 1 09/19/2020 Active OneTouch Delica Plus Lzyuoy75V TESTING once daily 100 Each 3 09/28/2020 [...] as of this encounter (statuses as of 10/09/2020) Active Problems Problem Noted Date Uncontrolled type [...] as of this encounter (statuses as of 10/09/2020) Resolved Problems Problem Noted Date Resolved Date [...] pain 01/24/2012 01/17/2017 Genetic Sleep Disorder Research Other*[id number] 05/13/2011 04/07/2016 Obstructive sleep apnea 01/18/2011 12/27/19 [...] as of this encounter (statuses as of 10/09/2020) Immunizations Name Administration Dates Next Due HEP [...] or bathing? 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-a/c tech helps 07/15/2020 Because of a physical, menta [...] Telephone Encounter - Cassie Barboza RN - 10/09/2020 4:24 PM EST Signed Prescriptions: Disp Refills Lidocaine-Prilocaine 2.5-2.5 % External Cr*30 g 3 Sig: Apply topically to affected area as needed for Other (for port). APPLY TO SKIN OVER MEDIPORT & COVER 1HR PRIOR TO ACCESSING.Authorizing Provider: CHELLE SANCHEZ * Telephone Encounter - Chelle Sanchez MD - 10/09/2020 4:20 PM EST E-prescribed Chelle Sanchez MD Hem/Onc * Telephone Encounter - Francine Okeefe RN - 10/09/2020 3:52 PM EST Pt requesting EMLA cream for port. documented in this encounter Plan of Treatment Upcoming Encounters Date Type Specialty Care Team Description 10/12/2020 Imaging Radiology 10/16/2020 Pharmacy Pharmacy [facility] [address] [place] [address] 10/23/2020 Hem/Onc Treatment Hematology Oncology [place], Chair 6 Hem Onc Sc[address]ery [address] [place] [address] [phone] 11/06/2020 Hem/Onc Treatment Hematology Oncology [place], Chair 6 Hem Onc Scenery [address] [place] [address] [phone] 11/20/2020 Hem/Onc Treatment Hematology Oncology [place], Chair 1 Hem Onc Scenery [address] [place] [address] [phone] 11/30/2020 Office Visit Family Medicine Alexandra Caceres, DO [address] [place] [address] 12/01/2020 Nutrition Services Gastroenterology Melissa Omalley, [place]ANTHA [address] [place] [address] [phone] 12/04/2020 Hem/Onc Treatment Hematology Oncology [place], Chair 8 Hem Onc Scenery 200 [place] [address] [phone] 12/18/2020 Hem/Onc Treatment Hematology Oncology [place], Chair 7 Hem Onc Scenery 200 [facility], [place] [address] [phone] 01/01/2021 Office Visit Hematology Oncology Chelle Sanchez MD 200 [facility], [place] [address] [phone] 01/21/2021 Office Visit Gastroenterology Lyssa Stout CRNP [address] [employer] [place] [address] [phone] 09/09/2021 Imaging Radiology Health Maintenance Due Date [...] of this encounter Implants Implanted Type Area Insulation Nozzleman Device Identifier Shelf Expiration Date Model / Serial / Lot Microtech Sure Clip Implanted:Qty: 2 on 06/03/2020 by Janis Hatch DO at OR [facility] Clip N/A: Colon 04/21/[address] [facility]-F-26-2 35-C-R / / [id number] documented as of this encounter Visit Diagnoses Diagnosis Iron deficiency anemia due to chronic blood loss- Primary Iron deficiency anemia secondary to blood loss (chronic) Pancytopenia (HCC) Other pancytopenia documented in this encounter Advance Directives Documents on File Type Date Recorded Patient Exhauster Expl anation Advanced Directive service a kerri [...]
--- OUTSIDE RECORDS SUMMARY | 2023-05-10 21:40 | External Medical Summary | Summary of Care ---
Author Name Unknown Organization [facility] Address [place] [address] Care Team Providers Care Stained Glass Painter Name Role Phone Nicki Alexandrajennie Ashton DO Primary Care Provider Reason for Visit * Reason Comments IV Therapy Venofer 09/16 Encounter Details Date Type Department Care Team Description 10/09/2020 Hem/Onc Treatment Hematology/Oncology Treatment, [place] [address] [place] [address] [place], Chair 7 Hem Onc Sc[address]ery [address] [place] [address] [phone] Iron deficiency anemia due to chronic blood [...] 120 Vial 11 10/02/2019 Active nystatin (NYSTOP) 680235 UNIT/GM powder Apply topically to affected area [...] of less than 7.0% ([facility]) Inject 25 units under the skin once a day 30 mL 3 08/31/2020 Active Dexcom G6 Career Guidance Technician Device Use as directed. To test [...] Tab 1 09/19/2020 Active OneTouch Delica Plus Pegcla49K TESTING once daily 100 Each 3 09/28/2020 [...] ONCE DAILY 90 Cap 0 10/08/2020 Active documented as of this encounter (statuses [...] pain 01/24/2012 01/17/2017 Genetic Sleep Disorder Research Other*[id number] 05/13/2011 04/07/2016 Obstructive sleep apnea 01/18/2011 12/27/19 [...] Sign Reading Time Taken Comments Blood Pressure 151/80 10/09/2020 3:07 PM EST Pulse 71 10/09/2020 3:07 PM EST Temperature 36 C (96.8 F) 10/09/2020 3:07 PM EST Respiratory Rate - - Oxygen Saturation - [...] or bathing? 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-spot remover helps 07/15/2020 Because of a physical, menta [...] of this encounter Nursing Notes * Renetta Schuler, RN - 10/09/2020 5:10 PM EST Pt completed treatment without issues. VAD flushed with 10 ml NSS and Heparin 5 ml (100 units/ml). Mason needle removed intact. Goals: Pt will remain free from injury. Possible barriers to meeting goals: pt is a high fall risk. Stability of the patient: Moderately unstable - medium risk of patient condition declining or worsening Summary regarding today's goals: Met: Pt remained free from injury during treatment today. Discharged in stable condition B Tavon assisted. * Renetta Schuler RN - 10/09/2020 3:55 PM EST Pt presents for Venofer dose 09/16 in her own wheelchair. Pt has no concerns/symptoms to report. VAD accessed; NSS infusing. Safety and Risk for Injury Patient will remain free from injury. Ensure appropriate safety devices are available. Provide and maintain safe environment. documented in this encounter Plan of Treatment Upcoming Encounters Date Type Specialty Care Team Description 10/12/2020 Imaging Radiology 10/16/2020 Pharmacy Pharmacy [facility] [address] [place], [place] [address] 10/23/2020 Hem/Onc Treatment Hematology Oncology [place], Chair 6 Hem Onc Scenery [address] [place] [id number] 11/06/2020 Hem/Onc Treatment Hematology Oncology [place], Chair 6 Hem Onc Scenery [address] [place] [address] [phone] 11/20/2020 Hem/Onc Treatment Hematology Oncology [place], Chair 1 Hem Onc Scenery [address] [place] [address] [phone] 11/30/2020 Office Visit Family Medicine Alexandra Caceres, DO [address] [place], [place] [address] 12/01/2020 Nutrition Services Gastroenterology Melissa Omalley, [place]ANTH[place] [address] [facility] [place] [address] [phone] 12/04/2020 Hem/Onc Treatment Hematology Oncology [place], Chair 8 Hem Onc Scenery [address] [place] [address] [phone] 12/18/2020 Hem/Onc Treatment Hematology Oncology [place], Chair 7 Hem Onc Scenery [address] [place], [place] [address] [phone] 01/01/2021 Office Visit Hematology Oncology [facility]ono Sanchez MD [address] [facility] [address] [phone] 01/21/2021 Office Visit Gastroenterology Lyssa Stout CRNP 132 [facility] [place] [address] [phone] 09/09/2021 Imaging Radiology Health Maintenance Due Date [...] of this encounter Implants Implanted Type Area Elementary Vocal Music Teacher Device Identifier Shelf Expiration Date Model / Serial / Lot Microtech Sure Clip Implanted:Qty: 2 on 06/03/2020 by Janis Hatch DO at OR [facility] Clip N/A: Colon 04/21/2022 [facility]-F-26-2 35-C-R / / [id number] documented as of this encounter Visit Diagnoses [...] Push, ONCE PRN Other, Hypersensitivity Reaction, Starting Mon10/09/20 at 1506, Until 10/10/20 at 1505, For 24 hours EPINEPHrine 1 MG/ML inj 0.3 mg 0.3 mg, Intramuscular, ONCE PRN Other, Hypersensitivity Reaction or Anaphylaxis, Starting Mon10/09/20 at 1506, Until 10/10/20 at 1505, For 24 hours hEParin 100 UNIT/ML Lock Flush inj 500 Units 500 Units (5 mL), IV Lock, PRN Other, IV Flush, Starting Mon10/09/20 at 1506, Until 10/10/20 at 1505, For 24 hours, Do not flush if lock, PICC, or central line not in place; IV infusing or unable to flush., Given 10/09/2020 5:02 PM EST 500 Units Hydrocortisone Na Succinate PF (Solu-Cortef) inj 100 mg 100 mg, IV Push, ONCE PRN Other, Hypersensitivity Reaction, Starting Mon10/09/20 at 1506, Until 10/10/20 at 1505, For 24 hours NSS infusion 500 mL, Intravenous, at 50 mL/hr, CONTINUOUS, Starting Mon10/09/20 at 1615, Until 10/10/20 at 0214 Start Infusion 10/09/2020 3:16 PM EST 500 mL 50 mL/hr sodium chloride 0.9% flush/inj 10 mL 10 mL, IV Push, PRN Other, IV Flush, Starting Mon10/09/20 at 1506, Until 10/10/20 at 1505, For 24 hours, Do not flush if lock, PICC, or central line not in place; IV infusing or unable to flush., Given 10/09/2020 5:02 PM EST 10 mL Inactive Administered Medications - up to 3 most recent administrations Medication Order MAR Action Action Date Dose Rate Site Iron Sucrose (Venofer) 300 mg in NSS 250 mL ivpb 300 mg, IV Piggyback, ONCE, 1 dose, 10/09/20 at 1645, Administer over 90 Minutes Start Infusion 10/09/2020 3:16 PM EST 300 mg 166.67 mL/hr documented in this encounter Advance Directives Documents on File Type Date Recorded Patient Construction Operations Manager Expl anation Advanced Directive service a [...]
--- OUTSIDE RECORDS SUMMARY | 2023-05-10 21:40 | External Medical Summary | Summary of Care ---
Author Name Unknown Organization [facility] Address [place] [address] Care Team Providers Care Top Dyeing Machine Tender Name Role Phone QamarMaikel mcdonough Primary Care Provider [phone] Reason for Visit * Reason Comments eRx-Medication Refill Encounter Details Date Type Department Care Team Description 10/06/2020 Refill [place] [address] [place], [place] [id number] Rajwinder Carter DO [address] [place] [address] [phone] Allergies Active Allergy Reactions Severity Noted Date Comments Adhesive Tape Itching 04/29/2020 Penicillins Rash 02/12/2008 Perflutren Protein A Microsph 2019 Definity-lower back pain documented as of this encounter (statuses as of 10/08/2020) Medications Medication Sig Dispensed Refills Start Date [...] 120 Vial 11 10/02/2019 Active nystatin (NYSTOP) 133027 UNIT/GM powder Apply topically to affected area [...] 7.0% ([facility]) Inject 25 units under the skin once a day 30 mL 3 08/31/2020 Active Dexcom G6 Automotive Quality Manager Device Use as directed. To test [...] Tab 1 09/19/2020 Active OneTouch Delica Plus [id number] TESTING once daily 100 Each 3 09/28/2020 [...] ONCE DAILY 90 Cap 0 10/08/2020 Active oxybutynin (DITROPAN) 5 MG Tablet TAKE 1 TABLET BY MOUTH TWICE DAILY 60 Tab 5 03/27/2020 1 Discontinued tamsulosin (FLOMAX) 0.4 MG Capsule TAKE 1 CAPSULE BY MOUTH ONCE DAILY 90 Cap 1 04/22/2020 1 Discontinued gabapentin (NEURONTIN) 300 MG Capsule TAKE 1 CAPSULE BY MOUTH IN THE MORNING, 1 CAPSULE MIDDAY, AND 2 CAPSULES IN THE EVENING 180 Cap 2 05/21/2020 1 Discontinued documented as of this encounter (statuses as of 10/08/2020) Active Problems Problem Noted Date Uncontrolled type [...] as of this encounter (statuses as of 10/08/2020) Resolved Problems Problem Noted Date Resolved Date [...] pain 01/24/2012 01/17/2017 Genetic Sleep Disorder Research Other*[id number] 05/13/2011 04/07/2016 Obstructive sleep apnea 01/18/2011 12/27/19 [...] as of this encounter (statuses as of 10/08/2020) Immunizations Name Administration Dates Next Due HEP [...] or bathing? 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-cryptologic technician operator/analyst helps 07/15/2020 Because of a physical, menta [...] Telephone Encounter - Maikel Caceres DO - 10/08/2020 1:57 PM EST Signed Prescriptions: Disp Refills Gabapentin 300 MG Oral Capsule (Neurontin) 180 Cap0 Sig: TAKE 1 CAPSULE BY MOUTH IN THE MORNING, 1 CAPSULE MIDDAY, AND 2 CAPSULES IN THE EVENING Authorizing Provider: MAIKEL CACERES Oxybutynin Chloride 5 MG Oral Tablet (Ditr*60 Tab 0 Sig: TAKE 1 TABLET BY MOUTH TWICE DAILY Authorizing Provider: MAIKEL CACERES Tamsulosin HCl 0.4 MG Oral Capsule (Flomax)90 Cap 0 Sig: TAKE 1 CAPSULE BY MOUTH ONCE DAILY Authorizing Provider: MAIKEL CACERES * Telephone Encounter - Artur Garcia, [facility] - 10/08/2020 11:43 AM EST Pending Prescriptions: Disp Refills Gabapentin 300 MG Oral Capsule [Pharmacy M*180 Cap0 Sig: TAKE 1 CAPSULE BY MOUTH IN THE MORNING, 1 CAPSULE MIDDAY, AND 2 CAPSULES IN THE EVENING Oxybutynin Chloride 5 MG Oral Tablet [Phar*60 Tab 0 Sig: TAKE 1 TABLET BY MOUTH TWICE DAILY Tamsulosin HCl 0.4 MG Oral Capsule [Pharma*90 Cap 0 Sig: TAKE 1 CAPSULE BY MOUTH ONCE DA DEE DEE * Telephone Encounter - Artur Garcia, [facility] - 10/08/2020 11:43 AM EST Refill pharmacists currently not authorized to approve refills for this class of medication per refill protocol. Please approve if appropriate. Pending Prescriptions: Disp Refills Gabapentin 300 MG Oral Capsule [Pharmacy M*180 Cap0 Sig: TAKE 1 CAPSULE BY MOUTH IN THE MORNING, 1 CAPSULE MIDDAY, AND 2 CAPSULES IN THE EVENING Oxybutynin Chloride 5 MG Oral Tablet [Phar*60 Tab 0 Sig: TAKE 1 TABLET BY MOUTH TWICE DAILY Tamsulosin HCl 0.4 MG Oral Capsule [Pharma*90 Cap 0 Sig: TAKE 1 CAPSULE BY MOUTH ONCE DAILY Last Office/Telemedicine Visit: 08/27/2020 Next Office Visit: 11/30/2020 Scheduled Provider(s): Maikel Caceres DO If no future appointments scheduled, and last appointment is greater than a year ago, please schedule patient for a follow-up appointment Last date the medication was ordered: Pharmacy: [facility] [id number] Is this request for a controlled [...] PM HGBA1C 9.9 (H) 07/06/2020 05:24 AM ThanksArtur Clinical Pharmacist Pharmacy Refill Call Center 10/08/2020, 11:43 AM documented in this encounter Plan of Treatment Upcoming Encounters Date Type Specialty Care Team Description 10/09/2020 Hem/Onc Treatment Hematology [place], [address] [place] [address] [phone] 10/12/2020 Imaging Radiology 10/16/2020 Pharm[facility] [address] [facility] [id number] 11/30/2020 Office Visit Family Medicine Maikel Caceres DO [address] [facility] [address] [phone] 12/01/2020 Nutrition Services Gastroenterology Melissa Omalley, SAMANTHA [address] [place] [address] [phone] 01/01/2021 Office Visit Hematology Oncology Tono Sanchez MD [address] [place] [address] [phone] 01/21/2021 Office Visit Gastroenterology Lyssa Stout CRNP [address] [facility] [place] [address] [phone] 09/09/2021 Imaging Radiology Health Maintenance Due Date [...] of this encounter Implants Implanted Type Area Library Clerical Assistant Device Identifier Shelf Expiration Date Model / Serial / Lot Microtech Sure Clip Implanted:Qty: 2 on 06/03/2020 by Janis Hatch DO at OR H Clip N/A: Colon 04/21/2022 [facility]-F-26-2 35-C-R / / [id number] documented as of this encounter Advance Directives Documents on File Type Date Recorded Patient Supervisor Machine Workers Expl anation Advanced Directive service a kerri [...]
--- OUTSIDE RECORDS SUMMARY | 2023-05-10 21:40 | External Medical Summary | Summary of Care ---
Author Name Unknown Organization [place] [address] Care Team Providers Care Kitchen Runner Name Role Phone Alexandra Caceres DO Primary Care Provider Reason for Visit * Reason Onset Date Comments Order Request 10/12/2020 Encounter Details Date Type Department Care Team Description 10/12/2020 Telephone [facility] [address], [place] [id number] Alexandra Caceres DO [address] [place] [address] [phone] Order Request Allergies Active Allergy Reactions Severity Noted Date Comments Adhesive Tape Itching 04/29/2020 Penicillins Rash 02/12/2008 Perflutren Protein A Microsph 2019 Definity-lower back pain documented as of this encounter (statuses as of 10/13/2020) Medications Medication Sig Dispensed Refills Start Date [...] 120 Vial 11 10/02/2019 Active nystatin (NYSTOP) 549510 UNIT/GM powder Apply topically to affected area [...] 30 mL 3 08/31/2020 Active Dexcom G6 Medical Artist Device Use as directed. To test [...] Tab 1 09/19/2020 Active OneTouch Delica Plus [id number] TESTING once daily 100 Each 3 09/28/2020 [...] as of this encounter (statuses as of 10/13/2020) Active Problems Problem Noted Date Uncontrolled type [...] as of this encounter (statuses as of 10/13/2020) Resolved Problems Problem Noted Date Resolved Date [...] pain 01/24/2012 01/17/2017 Genetic Sleep Disorder Research Other*[id number] 05/13/2011 04/07/2016 Obstructive sleep apnea 01/18/2011 12/27/19 [...] as of this encounter (statuses as of 10/13/2020) Immunizations Name Administration Dates Next Due HEP [...] or bathing? 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-software developer consultant helps 07/15/2020 Because of a physical, [...] encounter Miscellaneous Notes * Telephone Encounter - Marcelle Roasles, THAD - 10/12/2020 1:59 PM EST An order was requested for this patient. Name of Requesting Provider: Ai from [employer] Order Requested: Wheeled Shower Seat Diagnosis/Reason for Request: Pt is unable to stand and pivot to get onto her regular shower chair Does the order need to be faxed somewhere? If so, where?: Yes, [employer] Fax Number, if applicable: [phone] Call Back Number: [phone] documented in this encounter Plan of Treatment Upcoming Encounters Date Type Specialty Care Team Description 10/19/2020 Imaging Radiology 10/23/2020 Hem/Onc Treatment Hematology [place]cology [place], [address] [place] [address] [phone] 11/02/2020 Office Visit [facility] [address], [place] [id number] 11/06/2020 Hem/Onc Treatment Hematology [place]cology [place], [address] [place] [address] [phone] 11/20/2020 Hem/Onc Treatment Hematology [place] [place], [address] Hem Onc [address] [place] [address] [phone] 11/30/2020 Office Visit Family Medicine Alexandra Caceres, DO [address] [place] [address] 12/01/2020 Nutrition Services Gastroenterology Melissa Omalley, LU[place] [address] [place], [place] [address] 12/04/2020 Hem/Onc Treatment Hematology Oncology Maryellen, Chair [address] [place] [address] [phone] 12/18/2020 Hem/Onc Treatment Hematology Oncology Maryellen, Chair [address] [place] [address] [phone] 01/01/2021 Office Visit Hematology Oncology Tono Sanchez MD [address] [place] [address] [phone] 01/21/2021 Office Visit Gastroenterology Lyssa Stout CRNP [address] [facility] [place] [place] [address] [phone] 09/09/2021 Imaging Radiology Health Maintenance Due Date [...] of this encounter Implants Implanted Type Area Asphalt Layer Device Identifier Shelf Expiration Date Model / Serial / Lot Microtech Sure Clip Implanted:Qty: 2 on 06/03/2020 by Janis Hatch DO at OR [facility] Clip N/A: Colon 04/21/2022 [facility]-F-26-2 35-C-R / / [id number] documented as of this encounter Visit Diagnoses Diagnosis Cerebral palsy, unspecified type (HCC)- Primary documented in this encounter Advance Directives Documents on File Type Date Recorded Patient Cam Milling Machine Operator Expl 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
--- OUTSIDE RECORDS SUMMARY | 2023-05-10 21:41 | External Medical Summary | Summary of Care ---
Author Name Unknown Organization [place] [address] Care Team Providers Care Warehouse Specialist Name Role Phone Alexandra Caceres Primary Care Provider [phone] Reason for Visit * Reason Onset Date Comments Advice 10/01/2020 Encounter Details Date Type Department Care Team Description 10/01/2020 Telephone Hematology/Oncology [facility] [address] [place] [address] Tono Sanchez MD [address] [place] [address] [phone] Advice Allergies Active Allergy Reactions Severity Noted Date Comments Adhesive Tape Itching 04/29/2020 Penicillins Rash 02/12/2008 Perflutren Protein A Microsph 2019 Definity-lower back pain documented as of this encounter (statuses as of 10/02/2020) Medications Medication Sig Dispensed Refills Start Date [...] 120 Vial 11 10/02/2019 Active nystatin (NYSTOP) 357914 UNIT/GM powder Apply topically to affected area [...] mouth daily. 90 Tab 3 02/20/2020 Active oxybutynin (DITROPAN) 5 MG Tablet TAKE 1 TABLET BY MOUTH TWICE DAILY 60 Tab 5 03/27/2020 Active tamsulosin (FLOMAX) 0.4 MG Capsule TAKE 1 CAPSULE BY MOUTH ONCE DAILY 90 Cap 1 04/22/2020 Active linaCLOtide (LINZESS) 290 MCG Capsule Take 1 Cap by mouth daily before breakfast. 90 Cap 3 05/04/2020 Active escitalopram (LEXAPRO) 20 MG TabletIndications:Rec urrent major depressive disorder, in partial remission (HCC) TAKE 1 TABLET BY MOUTH ONCE DAILY 90 Tab 1 05/21/2020 Active gabapentin (NEURONTIN) 300 MG Capsule TAKE 1 CAPSULE BY MOUTH IN THE MORNING, 1 CAPSULE MIDDAY, AND 2 CAPSULES IN THE EVENING 180 Cap 2 05/21/2020 Active traZODone (DESYREL) 50 MG TabletIndications:Sle [...] of less than 7.0% ([facility]) Use to inject insulin four times [...] of less than 7.0% ([facility]) Inject 25 units under the skin once a day 30 mL 3 08/31/2020 Active Dexcom G6 Java Tech Lead Device Use as directed. To test [...] Tab 1 09/19/2020 Active OneTouch Delica Plus [id number] TESTING once daily 100 Each 3 09/28/2020 Active OneTouch Verio In Vitro Strip (Glucose Blood) TESTING once daily 100 Strip 3 09/28/2020 Active documented as of this encounter (statuses as of 10/02/2020) Active Problems Problem Noted Date Uncontrolled type [...] as of this encounter (statuses as of 10/02/2020) Resolved Problems Problem Noted Date Resolved Date [...] pain 01/24/2012 01/17/2017 Genetic Sleep Disorder Research Other*[id number] 05/13/2011 04/07/2016 Obstructive sleep apnea 01/18/2011 12/27/19 [...] as of this encounter (statuses as of 10/02/2020) Immunizations Name Administration Dates Next Due HEP [...] or bathing? 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-customer equipment engineer helps 07/15/2020 Because of a physical, [...] Telephone Encounter - Janett Triana OSA - 10/02/2020 2:16 PM EST Called and lmom for patient. Phone number left [phone] * Telephone Encounter - Francine Okeefe RN - 10/02/2020 12:18 PM EST Port placement is scheduled for 10/05. Scheduling: please contact patient to schedule venofer infusions 10/06 or after - 503 schedule 2 hr appt "Venofer 09/16 - pt has port" -pt will be getting every other week x 6 if she wants to schedule future appts. * Telephone Encounter - Tono Sancehz MD - 10/02/2020 10:41 AM EST I spoke with her, discussed with her regarding port placement in her case. -I would have port in her case and not tunnel catheter. She will call at [facility] IR regarding port placement. * Telephone Encounter - Francine Okeefe RN - 10/01/2020 3:23 PM EST Received a voicemail from Kristin Alva at gen surg scheduling regarding a port placement for patient. She would like called back at [phone] * Telephone Encounter - Kristin Alva OSA - 10/01/2020 9:[address] Ratliff referred patient to IR Radiology in [place] for her port insertion. They called this morning and said they dont put ports in for iron deficiency. Dr Ratliff is asking if you really need her to have this done since she is very high risk. Please advise. documented in this encounter Plan of Treatment Upcoming Encounters Date Type Specialty Care Team Description 10/05/2020 Hospital Encounter Radiology 10/12/2020 Imaging Radiology 10/16/2020 Pharmacy Pharmacy [facility] [address] [place] [address] 11/30/2020 Office Visit Family Medicine Alexandra Caceres, [address] [place], [place] [address] 12/01/2020 Nutrition Services Gastroenterology Melissa Omalley RDN [address] [facility] [place] [address] [phone] 01/01/2021 Office Visit Hematology Oncology Tono Sanchez MD [address] [facility], [place] [address] [phone] 01/21/2021 Office Visit Gastroenterology Lyssa Stout CRNP [address] [facility] [place] [address] [phone] 09/09/2021 Imaging Radiology Health Maintenance Due Date [...] of this encounter Implants Implanted Type Area Mailroom Associate Device Identifier Shelf Expiration Date Model / Serial / Lot Microtech Sure Clip Implanted:Qty: 2 on 06/03/2020 by Janis Hatch DO at OR [facility] Clip N/A: Colon 04/21/2022 [facility]-F-26-2 35-C-R / / [id number] documented as of this encounter Advance Directives Documents on File Type Date Recorded Patient Newscast Producer Expl anation Advanced Directive service a kerri [...]
--- OUTSIDE RECORDS SUMMARY | 2023-05-10 21:41 | External Medical Summary ---
Author Name Unknown Address Unknown Organization R:IT USE ONLY!!! Laboratory Report Ordering Provider Test Date Status YARI PALMER 10/05/2020 11:59:00 Final Observation Date Value Abnormality Reference (Units ) Status Glucose Point of Care 10/05/2020 12:03 94 7 0-120 (mg/dL) Final Performing Location IT USE ONLY!!!
--- OUTSIDE RECORDS SUMMARY | 2023-05-10 21:41 | External Medical Summary | Summary of Care ---
Author Name Unknown Organization [place] [address] Care Team Providers Care Metal Cut Off Saw Tender Name Role Phone Alexandra Caceres Primary Care Provider [phone] Reason for Visit * Reason Onset Date Comments Advice 10/01/2020 Encounter Details Date Type Department Care Team Description 10/01/2020 Telephone Hematology/Oncology [facility] [address] [place] [address] Tono Sanchez MD [address] [place] [address] [phone] Advice Allergies Active Allergy Reactions Severity Noted Date Comments Adhesive Tape Itching 04/29/2020 Penicillins Rash 02/12/2008 Perflutren Protein A Microsph 2019 Definity-lower back pain documented as of this encounter (statuses as of 10/07/2020) Medications Medication Sig Dispensed Refills Start Date [...] 120 Vial 11 10/02/2019 Active nystatin (NYSTOP) 243800 UNIT/GM powder Apply topically to affected area [...] 30 mL 3 08/31/2020 Active Dexcom G6 Fiberglasser Device Use as directed. To test blood [...] Tab 1 09/19/2020 Active OneTouch Delica Plus [id number] TESTING once daily 100 Each 3 09/28/2020 Active OneTouch Verio In Vitro Strip (Glucose Blood) TESTING once daily 100 Strip 3 09/28/2020 Active documented as of this encounter (statuses as of 10/07/2020) Active Problems Problem Noted Date Uncontrolled type [...] as of this encounter (statuses as of 10/07/2020) Resolved Problems Problem Noted Date Resolved Date [...] pain 01/24/2012 01/17/2017 Genetic Sleep Disorder Research Other*[id number] 05/13/2011 04/07/2016 Obstructive sleep apnea 01/18/2011 12/27/19 [...] as of this encounter (statuses as of 10/07/2020) Immunizations Name Administration Dates Next Due HEP [...] bathing? 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-home care giver helps 07/15/2020 Because of a [...] Telephone Encounter - Lucero Wang OSA - 10/06/2020 2:41 PM EST Called and spoke to patient. Patient is scheduled for Venofer on 10/09/20. * Telephone Encounter - Janett Triana OSA - 10/02/2020 2:16 PM EST Called and lmom for patient. Phone number left of [phone] * Telephone Encounter - Francine Okeefe RN - 10/02/2020 12:18 PM EST Port placement is scheduled for 10/05. Scheduling: please contact patient to schedule venofer infusions 10/06 or after - 503 schedule 2 hr appt "Venofer 09/16 - pt has port" -pt will be getting every other week x 6 if she wants to schedule future appts. * Telephone Encounter - Tono Sanchez MD - 10/02/2020 10:41 AM EST I spoke with her, discussed with her regarding port placement in her case. -I would have port in her case and not tunnel catheter. She will call at [facility] IR regarding port placement. * Telephone Encounter - Francine Okeefe RN - 10/01/2020 3:23 PM EST Received a voicemail from Kristin Alva at gen surg scheduling regarding a port placement for patient. She would like called back at [phone] * Telephone Encounter - Kristin Alva OSA - 10/01/2020 9:[address] Ratliff referred patient to IR Radiology in [place] for her port insertion. They called this [...] Chair [address] [place] [address] [phone] 10/12/2020 Imaging Radiology 10/16/2020 Pharmacy Pharmacy [facility] [address] [place] [address] 11/30/2020 Office Visit Family Medicine Alexandra Caceres DO [address] [place], [place] [address] 12/01/2020 Nutrition Services Gastroenterology Melissa Omalley RDN [address] [facility] [place] [address] [phone] 01/01/2021 Office Visit Hematology Oncology Tono Sanchez MD [address] [place] [address] [phone] 01/21/2021 Office Visit [facility]enterology [facility]out CR[facility] [address] [facility] [place] [place] [address] [phone] 09/09/2021 Imaging Radiology Health Maintenance Due Date [...] of this encounter Implants Implanted Type Area Dynamics Ax Technical Architect Device Identifier Shelf Expiration Date Model / Serial / Lot Microtech Sure Clip Implanted:Qty: 2 on 06/03/2020 by [facility]is [facility] Clip N/A: Colon 04/21/2022 [facility]-F-26-2 35-C-R / / [id number] documented as of this encounter Advance Directives Documents on File Type Date Recorded Patient Art History Instructor Expl anation Advanced Directive service a [...]
--- OUTSIDE RECORDS SUMMARY | 2023-05-10 21:41 | External Medical Summary | Summary of Care ---
Author Name Unknown Organization [place] [address] Care Team Providers Care Hot Bread Baker Name Role Phone Alexandra Caceres Primary Care Provider [phone] Reason for Visit * Reason Comments Follow Up Encounter Details Date Type Department Care Team Description 10/02/2020 Office Visit Hematology/Oncology [facility] [address] [place] [address] Tono Sanchez MD [address] [place], [place] [id number] Iron deficiency anemia due to chronic blood loss*; Pancytopenia (HCC); Splenomegaly Allergies Active Allergy Reactions Severity Noted [...] 120 Vial 11 10/02/2019 Active nystatin (NYSTOP) 781457 UNIT/GM powder Apply topically to affected area [...] 30 mL 3 08/31/2020 Active Dexcom G6 Machine Compositor Device Use as directed. To test blood [...] Tab 1 09/19/2020 Active OneTouch Delica Plus [id number] TESTING once daily 100 Each 3 09/28/2020 [...] pain 01/24/2012 01/17/2017 Genetic Sleep Disorder Research Other*[id number] 05/13/2011 04/07/2016 Obstructive sleep apnea 01/18/2011 12/27/19 [...] Sign Reading Time Taken Comments Blood Pressure 111/62 10/02/2020 9:41 AM EST Pulse 69 10/02/2020 9:41 AM EST Temperature 35.7 C (96.2 F) 10/02/2020 9:41 AM ES T Respiratory Rate 16 10/02/2020 9:41 AM EST Oxygen Saturation 96% 10/02/2020 9:41 AM EST Inhaled Oxygen Concentration - - [...] or bathing? 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-priming machine operator helps 07/15/2020 Because of a [...] Progress Notes * Tono Sanchez MD - 10/02/2020 1:43 PM EST Name: Shaina Bustos CHIEF COMPLAINT: Shaina Bustos is a 65 year old female patient is here for the follow-up. DIAGNOSIS: -pancytopenia related to underlying cirrhosis of liver and splenomegaly -iron deficiency anemia. DIAGNOSTIC WORKUP: She is referred to hematology for evaluation of the anemia, I I reviewed her medical records, also reviewed her medical records from [facility]. She has underlying cirrhosis of liver, has evidence of iron deficiency for the last 1 year, Ferritin level was less than 10 earlier in December 2018, she was on oral iron replacement therapy once a day,lately increase to twice a day. She was admitted at [facility] in November 2019, she received 1 to [...] a day -IV Venofer every 2 weeks (08/07/2020- 08/21/2020, 08/28/2020) INTERVAL HISTORY: She has come the clinic [...] on minimal exertion present. Current weight around 264 lb. No increasing chest pain at this time. Review of patient's allergies indicates: Allergen Reactions Adhesive Tape Itching Pcn [Penicillins] Rash Perflutren Protein A Microsph Definity-lower back pain Current Outpatient Medications Medication Sig Dispense Refill OneTouch Delica Plus [id number] TESTING once daily 100 Each 3 OneTouch Verio In Vitro Strip (Glucose Blood) TESTING once daily 100 Strip 3 Nadolol 20 MG Oral Tablet (CORGARD) One daily 90 Tab 1 NovoLOG FlexPen 100 UNIT/ML Subcutaneous Solution Pen-injector (insulin aspart) INJECT 12 UNITS UNDER THE SKIN THREE TIMES A DAY BEFORE MEALS. PLUS COVER MEALS WITH THE FOLLOWING SLIDING SCALE: 80-150 (O UNITS); 151-200 (2 UNITS); 201-250 (4 UNITS); 251-300 (6 UNITS) 15 mL 0 Dexcom G6 Machine Compositor Device Use as directed. To test blood [...] every 90 days. DxE11.9 1 Each 3 Insulin Aspart 100 UNIT/ML Subcutaneous Solution (NovoLOG) Inject 28 units under the skin before breakfast, 28 units before lunch, and 28 units before supper 60 mL 3 Lantus SoloStar 100 UNIT/ML Subcutaneous [...] four times daily; E11.42 400 Each 3 Trulicity 1.5 MG/0.5ML Subcutaneous Solution Pen-injector [...] With spacer 16 g 1 nystatin (NYSTOP) 726946 UNIT/GM powder Apply topically to affected area [...] update of inactive term OBJECTIVE: Filed Vitals: 10/02/20 0941 BP: 111/62 Pulse: 69 Resp: 16 Temp: 35.7 C (96.2 F) TempSrc: Infrared SpO2: 96% Wt Readings from Last 5 Encounters: 09/24/20 119.7 kg (264 lb) 08/07/20 119.7 kg (264 lb) 08/05/20 119.7 kg (264 lb) 07/23/20 119.7 kg (264 lb) 07/21/20 121.1 kg (267 lb) PHYSICAL EXAM: General Appearance: Normal - [...] count of 80,000, ANC 1400. Absolute lymphocyte . -BUN/Creat: 10/0.6, Calcium 8.7. -Serum iron 26, TIBC 352, iron saturation 7%, Ferritin level > 22.5 IMPRESSION/PLAN: Iron Deficiency Anemia, in the setting of cirrhosis of liver with portal Hypertension and splenomegaly causing pancytopenia. - she receives intravenous iron in the form of Venofer -she has poor venous access, planning for MediPort placement. Last dose of IV iron received on 08/28/2020. Once the port placement done, will bring her for intravenous iron every other week x6. Will check CBCD of Ferritin, iron profile every monthly. Will see her back in the clinic in about [address] Tono Sanchez Hem/Onc (This note was completed using the dictation program Fluency Direct. As such, there may be misspellings, word substitutions, or other variations that should not change the essence of the clinical content of this encounter note. If there is need for further clarification, please direct questions to the provider listed above.) documented in this encounter Plan of Treatment Upcoming Encounters Date Type Specialty Care Team Description 10/05/2020 Hospital Encounter Radiology 10/12/2020 Imaging Radiology 10/16/2020 Pharmacy Pharmacy [place], [facility] [address] [facility] [place] [id number] 11/30/2020 Office Visit Family Medicine [facility]aceres [facility] [address] [facility] [address] 12/01/2020 Nutrition Services Gastroenterology Melissa Omalley, SAMANTHA [address] [place] [address] [phone] 01/01/2021 Office Visit Hematology Oncology Tono Sanchez MD [address] [place] [address] [phone] 01/21/2021 Office Visit [facility]enterology [facility] [address] [facility] [place] [address] [phone] 09/09/2021 Imaging Radiology Health Maintenance Due Date [...] of this encounter Implants Implanted Type Area Language Tutor Device Identifier Shelf Expiration Date Model / Serial / Lot Microtech Sure Clip Implanted:Qty: 2 on 06/03/2020 by Janis Hatch DO at OR [facility] Clip N/A: Colon 04/21/2022 [facility]-F-26-2 35-C-R / / [id number] documented as of this encounter Visit Diagnoses Diagnosis Iron deficiency anemia due to chronic blood loss- Primary Iron deficiency anemia secondary to blood loss (chronic) Pancytopenia (HCC) Other pancytopenia Splenomegaly documented in this encounter Advance Directives Documents on File Type Date Recorded Patient Mobile Equipment Servicer Expl anation Advanced Directive service a kerri [...]
--- OUTSIDE RECORDS SUMMARY | 2023-05-10 21:41 | External Medical Summary ---
Author Name Unknown Address Unknown Organization R:IT USE ONLY!!! Laboratory Report Ordering Provider Test Date Status YARI PALMER 10/05/2020 12:46:00 Final Observation Date Value Abnormality Reference (Units ) Status Glucose Point of Care 10/05/2020 13:32 102 7 0-120 (mg/dL) Final Performing Location IT USE ONLY!!!
--- OUTSIDE RECORDS SUMMARY | 2023-05-10 21:41 | External Medical Summary | Summary of Care ---
Author Name Unknown Organization [place] [address] Care Team Providers Care Manager Concrete Name Role Phone Alexandra Caceres Primary Care Provider [phone] Reason for Visit * Reason Onset Date Comments Advice 10/01/2020 Encounter Details Date Type Department Care Team Description 10/01/2020 Telephone Hematology/Oncology [facility] [address] [place] [address] Tono Sanchez MD [address] [place] [address] [phone] Advice Allergies Active Allergy Reactions Severity Noted Date Comments Adhesive Tape Itching 04/29/2020 Penicillins Rash 02/12/2008 Perflutren Protein A Microsph 2019 Definity-lower back pain documented as of this encounter (statuses as of 10/06/2020) Medications Medication Sig Dispensed Refills Start Date [...] 120 Vial 11 10/02/2019 Active nystatin (NYSTOP) 144324 UNIT/GM powder Apply topically to affected area [...] [facility]) Inject 25 units under the skin once a day 30 mL 3 08/31/2020 Active Dexcom G6 News Photographer Device Use as directed. To [...] Tab 1 09/19/2020 Active OneTouch Delica Plus [id number] TESTING once daily 100 Each 3 09/28/2020 Active OneTouch Verio In Vitro Strip (Glucose Blood) TESTING once daily 100 Strip 3 09/28/2020 Active documented as of this encounter (statuses as of 10/06/2020) Active Problems Problem Noted Date Uncontrolled type [...] as of this encounter (statuses as of 10/06/2020) Resolved Problems Problem Noted Date Resolved Date [...] pain 01/24/2012 01/17/2017 Genetic Sleep Disorder Research Other*[id number] 05/13/2011 04/07/2016 Obstructive sleep apnea 01/18/2011 12/27/19 [...] as of this encounter (statuses as of 10/06/2020) Immunizations Name Administration Dates Next Due HEP [...] or bathing? 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-human development professor helps 07/15/2020 Because of a physical, [...] lmom for patient. Phone number left of [phone] * Telephone Encounter - Francine Okeefe RN [...] not tunnel catheter. She will call at [facility] IR regarding port placement. * Telephone Encounter - Francine Okeefe RN - 10/01/2020 3:23 PM EST Received a voicemail from Kristin Alva at [facility] scheduling regarding a port placement for patient. She would like called back at [phone] * Telephone Encounter - Kristin Alva OSA - 10/01/2020 9:[address] Ratliff referred patient to IR Radiology in [place] for her port insertion. They called this [...] Chair 7 Hem Onc Scenery [address] [place] [address] [phone] 10/12/2020 Imaging Radiology 10/16/2020 Pharmacy Pharmacy [facility] [address] [place] [address] 11/30/2020 Office Visit Family Medicine Alexandra Caceres DO [address] [place], [place] [address] 12/01/2020 Nutrition Services Gastroenterology Melissa Omalley RDN [address] [facility] [place] [address] [phone] 01/01/2021 Office Visit Hematology Oncology Tono Sanchez MD 200 [place] [address] [phone] 01/21/2021 Office Visit [facility]astroenterology [facility]out CR[facility] [address] [facility] [place] [place] [address] [phone] 09/09/2021 Imaging Radiology Health Maintenance Due Date [...] of this encounter Implants Implanted Type Area Excelsior Picker Device Identifier Shelf Expiration Date Model / Serial / Lot Microtech Sure Clip Implanted:Qty: 2 on 06/03/2020 by Janis Hatch DO at OR [facility] Clip N/A: Colon 04/21/2022 [facility]-F-26-2 35-C-R / / [id number] documented as of this encounter Advance Directives Documents on File Type Date Recorded Patient Slate Cutter Expl anation Advanced Directive service a [...]
--- OUTSIDE RECORDS SUMMARY | 2023-05-10 21:42 | External Medical Summary | Summary of Care ---
Author Name Unknown Organization [place] [address] Care Team Providers Care Info Print Press Operator Name Role Phone Alexandra Caceres Primary Care Provider [phone] Encounter Details Date Type Department Care Team Description 10/02/2020 Orders Only Radiology, [facility] [address] [place] [address] Francine Mon CRNP [address] [place] [address] Allergies Active Allergy Reactions Severity [...] 120 Vial 11 10/02/2019 Active nystatin (NYSTOP) 624568 UNIT/GM powder Apply topically to affected area [...] 7.0% ([facility]) Inject 1.5mg (one pen) under [...] 7.0% ([facility]) Inject 25 units under the skin once a day 30 mL 3 08/31/2020 Active Dexcom G6 Help Desk Rep Device Use as directed. To test blood [...] Tab 1 09/19/2020 Active OneTouch Delica Plus [id number] TESTING once daily 100 Each 3 09/28/2020 [...] pain 01/24/2012 01/17/2017 Genetic Sleep Disorder Research Other*[id number] 05/13/2011 04/07/2016 Obstructive sleep apnea 01/18/2011 12/27/19 [...] or bathing? 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-photography editor helps 07/15/2020 Because of a physical, menta [...] Description 10/12/2020 Imaging Radiology 10/16/2020 Pharmacy Pharmacy [place], [facility] [address] [facility] [place] [id number] 11/30/2020 Office Visit Family Medicine Alexandra Caceres, [address] [facility] [place] [id number] 12/01/2020 Nutrition Services Gastroenterology Melissa Omalley RDN [address] [facility] [place] [address] [phone] 01/01/2021 Office Visit Hematology Oncology Tono Sanchez MD [address] [place] [address] [phone] 01/21/2021 Office Visit Gastroenterology Lyssa Stout CRNP [address] [place] [address] [phone] 09/09/2021 Imaging Radiology Health Maintenance Due Date [...] this encounter Implants Implanted Type Area Casino Banker Device Identifier Shelf Expiration Date Model / Serial / Lot Microtech Sure Clip Implanted:Qty: 2 on 06/03/2020 by Janis Hatch DO at OR [facility] Clip N/A: Colon 04/21/2022 [facility]-F-26-2 35-C-R / / [id number] documented as of this encounter Advance Directives Documents on File Type Date Recorded Patient Aviation Consultant Expl anation Advanced Directive service a [...] [facility] Communication Syed Juli Spouse Emergency Contact
--- OUTSIDE RECORDS SUMMARY | 2023-05-10 21:42 | External Medical Summary | Summary of Care ---
Author Name Unknown Organization [facility] Address [place], [place] [address] Care Team Providers Care Brimming Machine Operator Name Role Phone CarloscalistaAlexandra Primary Care Provider [phone] Reason for Referral * Precert (Routine) Status Reason Specialty Diagnoses / Procedures Referred By Contact Referred To Contact Pending Review Precert Radiology Diagnoses Cerebral palsy, unspecified type (HCC) Wheelchair dependent Impaired mobility and ADLs History of difficult venous access Procedures IR VENOUS ACCESS MEDIPORT Latrell Ratliff MD [address] [place] [address] Electronically signed by Latrell Ratliff MD at * Precert (Routine) Status Reason Specialty Diagnoses / Procedures Referred By Contact Referred To Contact Pending Review Precert Radiology Diagnoses Cerebral palsy, unspecified type (HCC) Wheelchair dependent Impaired mobility and ADLs Procedures IR VENOUS INTERVENTION Latrell Ratliff MD [address] [place] [address] Electronically signed by Latrell Ratliff MD at * Evaluate & Treat - Unlimited Visits (Within 10 days (routine)) Status Reason Specialty Diagnoses / Procedures Referred By Contact Referred To Contact Pending Review Specialty Services Required General Surgery Diagnoses Cerebral palsy, unspecified type (HCC) Latrell Ratliff MD [address] [place] [address] Electronically signed by Latrell Ratliff MD at Reason for Visit * Reason Comments NEW PATIENT port consult * Evaluate & Treat - Unlimited Visits (Within 3 days (urgent)) Status Reason Specialty Diagnoses / Procedures Referred By Contact Referred To Contact Pending Review Specialty Services Required General Surgery Diagnoses Iron deficiency anemia due to chronic blood loss Tono Sanchez MD [address] [facility] [place] [address] Encounter Details Date Type Department Care Team Description 09/30/2020 Office Visit General Surgery, [facility] [address] [facility] [place] [address] Latrell Ratliff MD 132 [facility] [place] [address] [phone] Cerebral palsy, unspecified type (HCC)*; Wheelchair dependent; Impaired mobility and ADLs; History of difficult venous access Allergies Active Allergy Reactions Severity Noted Date [...] 120 Vial 11 10/02/2019 Active nystatin (NYSTOP) 204511 UNIT/GM powder Apply topically to affected area [...] ([facility]) Inject 25 units under the skin once a day 30 mL 3 08/31/2020 Active Dexcom G6 Vice President Of Engineering Device Use as directed. To test blood [...] Tab 1 09/19/2020 Active OneTouch Delica Plus [id number] TESTING once daily 100 Each 3 09/28/2020 [...] pain 01/24/2012 01/17/2017 Genetic Sleep Disorder Research Other*[id number] 05/13/2011 04/07/2016 Obstructive sleep apnea 01/18/2011 12/27/19 [...] Pressure - - Pulse - - Temperature 36.2 C (97.2 F) 09/30/2020 12:[address] Respiratory Rate - - [...] or bathing? 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-braiding operator helps 07/15/2020 Because of a physical, [...] as of this encounter Progress Notes * Latrell Ratliff MD - 09/30/2020 12:23 PM EST HISTORY AND PHYSICAL EXAMINATION - General Surgery Name: Shaina Bustos Date: 09/30/2020 Time: 12:23 PM Subjective PRESENTING PROBLEM: Referred for port insertion HISTORY OF PRESENT ILLNESS: HPI: pt is a 65 year-old female who is referred for port insertion for difficult IV access, pt has multiple Morbidities- cerebral palsy, obesity, cirrhosis of liver, DM,fibromyalgia,pancytopenia, Wheelchair dependent. Pt denies chest pain, no fever, PROBLEM LIST: Patient Active Problem List Diagnosis Code Venous [...] 7.0% ([facility]) E11.9 Vitamin D deficiency E55.9 Restrictive lung disease J98.4 Obesity, morbid (more than 100 lbs over ideal weight or BMI > 40) ([facility]) E66.01 Dyslipidemia, goal LDL below 70 E78.5 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 R39.81 Acquired hypothyroidism E03.9 Chronic pain syndrome G89.4 MEDICATION USE AGREEMENT [id number] Cirrhosis of liver ([facility]) K74.60 THAD on CPAP G47.33, Z99.89 Wheelchair dependent Z99.3 Pancytopenia ([facility]) D61.818 Ambulatory dysfunction R26.2 DM type 2 with diabetic peripheral neuropathy ([facility]) E11.42 Insomnia G47.00 Recurrent major depressive disorder, in partial remission ([facility]) F33.41 Impaired mobility and ADLs Z74.09, Z78.9 Generalized weakness R53.1 Gastroesophageal reflux disease K21.9 History of Achilles tendon repair Z98.890 Anemia D64.9 Fibromyalgia M79.7 Achilles tendinitis, right leg M76.61 DNR (do not resuscitate) Z66 Thrombocytopenia ([facility]) D69.6 Iron deficiency anemia due to chronic blood loss D50.0 Splenomegaly R16.1 Cellulitis of right lower extremity L03.115 Cellulitis of right toe L03.031 Diabetic ulcer of right great toe ([facility]) E11.621, L97.519 Bacteremia R78.81 Acute blood loss anemia D62 Esophagitis K20.90 Esophageal varices ([facility]) I85.00 Uncontrolled type 2 diabetes mellitus with hyperglycemia ([facility]) E11.65 PAST MEDICAL HISTORY: Past Medical History: Diagnosis Date Cerebral palsy ([facility]) 01/24/2012 Chronic constipation Chronic hypoxemic respiratory failure ([facility]) 04/08/2019 Chronic pain 03/27/2012 Cirrhosis of liver ([facility]) 11/20/2017 DDD (degenerative disc disease), lumbar DM [...] 7.0% ([facility]) 09/26/2013 ICD-10 update of inactive term PAST SURGICAL HISTORY: Past Surgical History: Procedure Laterality Date BONE DEBRIDEMENT, FIRST 20 CM2 Right 04/16/2020 DEBRIDEMENT SKIN SUBCUTANEOUS TISSUE MUSCLE AND BONE performed by Josh Vazquez MD at [facility] DELIVERY 04/20/1982 COLONOSCOPY 04/21/2009 repeat in 10 years COLONOSCOPY, DIAGNOSTIC (RECTUM) 10/04/2016 normal bx, repeat 10 yrs/[facility] COLONOSCOPY, DIAGNOSTIC (RECTUM) N/A 06/03/2020 internal hemorrhoids/biopsies show adenomatous polyps/recall 5 years/COLONOSCOPY FLEXIBLE PROXIMAL DIAGNOSTIC performed by Janis Hatch DO at OR [facility] DENTAL SURGERY PROCEDURE NEC wisdom teeth x 4 DILATION AND CURETTAGE (D&C) EGD, FLEXIBLE, DIAGNOSTIC 10/04/2016 gastritis/[facility] EGD, FLEXIBLE, DIAGNOSTIC 01/11/2018 eso varices, retained food, repeat 1 yr/[facility] EGD, FLEXIBLE, DIAGNOSTIC N/A 06/03/2020 severe erosive esophagitis/non-bleeding grade II esophageal varices/gastritis/biopsies show inflammatory changes/repeat 3-4 months/ESOPHAGOGASTRODUODENOSCOPY (EGD), FLEXIBLE, TRANSORAL, DIAGNOSTIC per formed by Janis Hatch DO at [facility] EGD, FLEXIBLE, DIAGNOSTIC 11/27/2019 eso varices, portal hypertensive gastropathy, gastritis / [facility] EGD, FLEXIBLE, DIAGNOSTIC N/A 08/05/2020 large amount of food in stomach/repeat 1.5 years/ESOPHAGOGASTRODUODENOSCOPY (EGD), FLEXIBLE, TRANSORAL, DIAGNOSTIC performed by Janis Hatch DO at OR [facility] PELVIS/HIP JOINT SURGERY NEC teenager aid in walking REPAIR/GRAFT ACHILLES TENDON age 40 aid in walking FAMILY HISTORY: Family History Problem Relation Age of Onset Heart Disorder Father of GA at age 61 Diabetes Father Heart Disorder Mother of GA age 72 Cancer None Arthritis None Stroke None Heart Disorder Sister Mi at age 46 Hypertension Sister Mental Disorder None SOCIAL HISTORY: Social History Tobacco Use Smoking status: Never Smoker Smokeless tobacco: Never Used Substance Use Topics Alcohol use: No Drug use: No Comment: too much soda CURRENT MEDICATIONS: Note that discontinued continue to display for 24 hours. Ordered medications to be given in the future also display. Current Outpatient Medications Medication Sig Dispense Refill OneTouch Delica Plus [id number] TESTING once daily 100 Each 3 OneTouch Verio In Vitro Strip (Glucose Blood) TESTING once daily 100 Strip 3 Nadolol 20 MG Oral Tablet (CORGARD) One daily 90 Tab 1 NovoLOG FlexPen 100 UNIT/ML Subcutaneous Solution Pen-injector (insulin aspart) INJECT 12 UNITSUNDER THE SKIN THREE TIMES A DAY BEFORE MEALS. PLUS COVER MEALS WITH THE FOLLOWING SLIDING SCALE: 80-150 (O UNITS); 151-200 (2 UNITS); 201-250 (4 UNITS); 251-300 (6 UNITS) 15 mL 0 Dexcom G6 Vice President Of Engineering Device Use as directed. To test blood [...] 90 days. Dx E11.9 1 Each 3 Insulin Aspart 100 UNIT/ML [...] 3 mL via nebulizer4 times a day. 3 mL 10 Atorvastatin Calcium 40 MG Oral Tablet (LIPITOR) TAKE 1 TABLET BY MOUTH AT BEDTIME 90 Tab 1 Furosemide 20 MG Oral Tablet (LASIX) TAKE 1 TABLET BY MOUTH once DAilY NEEDED for edema 90 Tab 1 Pantoprazole Sodium 20 MG Oral Tablet Delayed Release (PROTONIX) Take 2 Tabs by mouth 2 times aday. 180 Tab 1 BD Pen Needle Mini [...] BY MOUTH IN THE MORNING, 1 CAPSULE MIDDAY,AND 2 CAPSULES IN THE EVENING 180 Cap [...] With spacer 16 g 1 nystatin (NYSTOP) 811984 UNIT/GM powder Apply topically to affected area [...] Tab by mouth daily. 1 Tab 0 ALLERGIES: Adhesive tape, Pcn [penicillins], and Perflutren protein a microsph ROS: Review of Systems Constitutional: Obesity, wheelchair dependent, cerebral palsy HENT: Negative. Eyes: Negative. Respiratory: Negative. Cardiovascular: HTN, DDD. Gastrointestinal: Cirrhosis of liver, splenomegaly Endocrine: Hypothyroidism Genitourinary: Urinary incontinence Musculoskeletal: Fibromyalgia Skin: Negative. Neurological: Negative. Hematological: Pancytopenia, anemia Psychiatric/Behavioral: Negative. Objective PHYSICAL EXAMINATION: Most Recent Vital Signs: Temp 36.2 C (97.2 F) (Tympanic) Physical Exam Constitutional: Appearance: She is obese. Comments: Wheelchair dependent HENT: Head: Normocephalic and atraumatic. Nose: Nose normal. Eyes: Pupils: Pupils are equal, round, and reactive to light. Neck: Musculoskeletal: Normal range of motion and neck supple. Cardiovascular: Rate and Rhythm: Normal rate and regular rhythm. Pulmonary: Effort: Pulmonary effort is normal. Breath sounds: Normal breath sounds. Abdominal: General: Abdomen is flat. Bowel sounds are normal. Palpations: Abdomen is soft. Skin: General: Skin is warm and dry. Neurological: General: No focal deficit present. Mental Status: She is alert and oriented to person, place, and time. Psychiatric: Mood and Affect: Mood normal. Behavior: Behavior normal. LABS: Labs reviewed as indicated below: none IMAGING: N/A IMPRESSION and PLAN: IMP: difficult iv access Plan, base on pt's significant co-morbidities, D/W the benefits, risk and alternative of the port insertion, pt and her want to go [place] [facility] [place] the [place], pt will see [facility] surgeon, I answered all questions, PRIMARY CARE PHYSICIAN: Alexandra Caceres DO documented in this encounter Nursing Notes * Miley Avelar LPN - 09/30/2020 12:03 PM EST Chief Complaint Patient presents with NEW PATIENT port consult documented in this encounter Miscellaneous Notes * Addendum Note - Miley Avelar LPN - 10/02/2020 11:54 AM EST Addended by: MILEY AVELAR on: 10/02/2020 11:54 AM Modules accepted: Orders documented in this encounter Plan of Treatment Upcoming Encounters Date Type Specialty Care Team Description 10/06/2020 Office Visit Orthopedics Jayme Benz MD [address] [place], [place] [id number] 10/12/2020 Imaging Radiology 10/16/2020 Pharmacy Pharmacy [facility] [address] [place] [address] 11/30/2020 Office Visit Family Medicine Alexandra Caceres, [address] [place] [address] 12/01/2020 Nutrition Services Gastroenterology Melissa Omalley RDN [address] [place] [address] [phone] 01/01/2021 Office Visit Hematology Oncology Tono Sanchez MD [address] [place] [address] [phone] 01/21/2021 Office Visit Gastroenterology Lyssa Stout CRNP [address] [place] [address] [phone] 09/09/2021 Imaging Radiology Scheduled Orders Name Type Priority Associated Diagnoses Orde r Schedule IR VENOUS INTERVENTION Medical Imaging Routine Cerebral palsy, unspecified type (HCC) Wheelchair dependent Impaired mobility and ADLs Ordered: 09/30/2020 IR VENOUS ACCESS MEDIPORT Medical Imaging Routine Cerebral palsy, unspecified type (HCC) Wheelchair dependent Impaired mobility and ADLs History of difficult venous access Ordered: 10/02/2020 Scheduled Referrals Name Type Priority Associated Diagnoses Orde r Schedule SURGERY REFERRAL OP Referral Within 10 da ys (routine) Cerebral palsy, unspecified type (HCC) Ordered: 09/30/2020 Health Maintenance Due Date Last Done Comments [...] this encounter Implants Implanted Type Area Supervisor Laundry Device Identifier Shelf Expiration Date Model / Serial / Lot Microtech Sure Clip Implanted:Qty: 2 on 06/03/2020 by Janis Hatch DO at OR [facility] Clip N/A: Colon 04/21/2022 [facility]-F-26-2 35-C-R / / [id number] documented as of this encounter Visit Diagnoses Diagnosis Cerebral palsy, unspecified type (HCC)- Primary Wheelchair dependent Wheelchair dependence Impaired mobility and ADLs Mechanical problems with limbs History of difficult venous access documented in this encounter Advance Directives Documents on File Type Date Recorded Patient Teaseler Expl anation Advanced Directive service a kerri [...]
--- OUTSIDE RECORDS SUMMARY | 2023-05-10 21:42 | External Medical Summary | Summary of Care ---
Author Name Unknown Organization [place] [address] Care Team Providers Care Nuclear Instructor Name Role Phone Alexandra Caceres Primary Care Provider [phone] Reason for Visit * Reason Onset Date Comments Advice 10/01/2020 Encounter Details Date Type Department Care Team Description 10/01/2020 Telephone Hematology/Oncology [facility] [address] [place] [address] Tono Sanchez MD [address] [place] [address] [phone] Advice Allergies Active Allergy Reactions Severity Noted [...] 120 Vial 11 10/02/2019 Active nystatin (NYSTOP) 746762 UNIT/GM powder Apply topically to affected area [...] less than 7.0% ([facility]) Inject 25 units under the skin once a day 30 mL 3 08/31/2020 Active Dexcom G6 Knockup Worker Device Use as directed. To test [...] Tab 1 09/19/2020 Active OneTouch Delica Plus [id number] TESTING once daily 100 Each 3 09/28/2020 [...] pain 01/24/2012 01/17/2017 Genetic Sleep Disorder Research Other*[id number] 05/13/2011 04/07/2016 Obstructive sleep apnea 01/18/2011 12/27/19 [...] or bathing? 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-dental office manager helps 07/15/2020 Because of a physical, [...] not tunnel catheter. She will call at [facility] IR regarding port placement. * Telephone Encounter - Francine Okeefe RN - 10/01/2020 3:23 PM EST Received a voicemail from Kristin Alva at gen surg scheduling regarding a port placement for patient. She would like called back at [phone] * Telephone Encounter - Kristin Alva OSA - 10/01/2020 9:[address] Ratliff referred patient to IR Radiology in [place] for her port insertion. They called this morning and said they dont put ports in for iron deficiency. Dr Ratliff is asking if you really need her to have this done since she is very high risk. Please advise. documented in this encounter Plan of Treatment Upcoming Encounters Date Type Specialty Care Team Description 10/05/2020 Appointment Radiology 10/12/2020 Imaging Radiology 10/16/2020 Pharmacy Pharmacy [facility] [address], [place] [address] 11/30/2020 Office Visit Family Medicine Alexandra Caceres, [address], [place] [address] 12/01/2020 Nutrition Services Gastroenterology Melissa Omalley RDN [address] [place] [address] [phone] 01/01/2021 Office Visit Hematology Oncology Tono Sanchez MD 200 [facility], [place] [address] [phone] 01/21/2021 Office Visit Gastroenterology Lyssa Stout CRNP [address] [facility] [place] [address] [phone] 09/09/2021 Imaging Radiology Health Maintenance Due Date [...] this encounter Implants Implanted Type Area Nurse Epidemiologist Device Identifier Shelf Expiration Date Model / Serial / Lot Microtech Sure Clip Implanted:Qty: 2 on 06/03/2020 by Janis Hatch DO at OR [facility] Clip N/A: Colon 04/21/2022 [facility]-F-26-2 35-C-R / / [id number] documented as of this encounter Advance Directives Documents on File Type Date Recorded Patient Gang Mower Operator Expl anation Advanced Directive service a [...]
--- OUTSIDE RECORDS SUMMARY | 2023-05-10 21:43 | External Medical Summary | Summary of Care ---
Author Name Unknown Organization [place] [address] Care Team Providers Care Rodeo Performer Name Role Phone Alexandra Caceres Primary Care Provider [phone] Reason for Visit * Reason Onset Date Comments Advice 10/01/2020 Encounter Details Date Type Department Care Team Description 10/01/2020 Telephone Hematology/Oncology [facility] [address] [place] [address] Tono Sanchez MD [address] [place] [address] [phone] Advice Allergies Active Allergy Reactions Severity Noted Date Comments Adhesive Tape Itching 04/29/2020 Penicillins Rash 02/12/2008 Perflutren Protein A Microsph 2019 Definity-lower back pain documented as of this encounter (statuses as of 10/01/2020) Medications Medication Sig Dispensed Refills Start Date [...] 120 Vial 11 10/02/2019 Active nystatin (NYSTOP) 791072 UNIT/GM powder Apply topically to affected area [...] of less than 7.0% ([facility]) Use to inject insulin four [...] of less than 7.0% ([facility]) Inject 25 units under the skin once a day 30 mL 3 08/31/2020 Active Dexcom G6 Roll Form Operator Device Use as directed. To test [...] Tab 1 09/19/2020 Active OneTouch Delica Plus [id number] TESTING once daily 100 Each 3 09/28/2020 Active OneTouch Verio In Vitro Strip (Glucose Blood) TESTING once daily 100 Strip 3 09/28/2020 Active documented as of this encounter (statuses as of 10/01/2020) Active Problems Problem Noted Date Uncontrolled type [...] as of this encounter (statuses as of 10/01/2020) Resolved Problems Problem Noted Date Resolved Date [...] pain 01/24/2012 01/17/2017 Genetic Sleep Disorder Research Other*[id number] 05/13/2011 04/07/2016 Obstructive sleep apnea 01/18/2011 12/27/19 [...] as of this encounter (statuses as of 10/01/2020) Immunizations Name Administration Dates Next Due HEP [...] or bathing? 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-machine sander helps 07/15/2020 Because of a physical, menta [...] Received a voicemail from Kristin Alva at [facility] gen surg scheduling regarding a port placement for patient. She would like called back at [phone] * Telephone Encounter - Kristin Alva OSA - 10/01/2020 9:[address] Ratliff referred patient to IR Radiology in [place] for her port insertion. They called this morning and said they dont put ports in for iron deficiency. Dr Ratliff is asking if you really need her to have this done since she is very high risk. Please advise. documented in this encounter Plan of Treatment Upcoming Encounters Date Type Specialty Care Team Description 10/01/2020 Pharmacy Pharmacy [facility] [address] [place], [place] [id number] Type 2 diabetes mellitus with hemoglobin A1c goal of less than 7.0% (HCC)* 10/02/2020 Office Visit Hematology Oncology Tono Sanchez MD [address] [place] [address] [phone] 10/02/2020 Telemedicine Endocrinology Alberta Duque PA-C [address] [place] [address] 10/06/2020 Office Visit Orthopedics Jayme Benz MD [address] [place] [address] 10/12/2020 Imaging Radiology 10/28/2020 Office Visit Pharmacy [facility] [address] [place], [place] [address] 11/30/2020 Office Visit Family Medicine Alexandra Caceres, [address] [place] [address] [phone] 12/01/2020 Nutrition Services Gastroenterology Melissa Omalley RDN [address] [facility] [place] [address] [phone] 01/21/2021 Office Visit [facility]ology [facility] [address] [facility] [address] [phone] 09/09/2021 Imaging Radiology Health Maintenance Due Date [...] of this encounter Implants Implanted Type Area Lithographic Photographer Apprentice Device Identifier Shelf Expiration Date Model / Serial / Lot Microtech Sure Clip Implanted:Qty: 2 on 06/03/2020 by Janis Hatch DO at OR [facility] Clip N/A: Colon 04/21/2022 [facility]-F-26-2 35-C-R / / [id number] documented as of this encounter Advance Directives Documents on File Type Date Recorded Patient Fine Chemicals Operator Expl anation Advanced Directive service a [...] on File Name Relationship Healthcare Agent [facility] p Communication Syed Bustos Spouse Emergency Contact
--- OUTSIDE RECORDS SUMMARY | 2023-05-10 21:43 | External Medical Summary | Summary of Care ---
Author Name Unknown Organization [place] [address] Care Team Providers Care Chief Data Officer Name Role Phone Alexandra Caceres Primary Care Provider [phone] Reason for Visit * Reason Onset Date Comments Advice 10/01/2020 Encounter Details Date Type Department Care Team Description 10/01/2020 Telephone Hematology/Oncology [facility] [address] [place] [address] Tono Sanchez MD [address] [place] [address] [phone] Advice Allergies Active Allergy Reactions Severity Noted [...] 120 Vial 11 10/02/2019 Active nystatin (NYSTOP) 341952 UNIT/GM powder Apply topically to affected area [...] 30 mL 3 08/31/2020 Active Dexcom G6 Assembler Utility Buildings Device Use as directed. To test blood [...] Tab 1 09/19/2020 Active OneTouch Delica Plus Qniphe13R TESTING once daily 100 Each 3 09/28/2020 [...] pain 01/24/2012 01/17/2017 Genetic Sleep Disorder Research Other*[id number] 05/13/2011 04/07/2016 Obstructive sleep apnea 01/18/2011 12/27/19 [...] or bathing? 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-police detective helps 07/15/2020 Because of a physical, menta [...] encounter Miscellaneous Notes * Telephone Encounter - Kristin Alva OSA - 10/01/2020 9:[address] Ratliff referred patient to IR Radiology in [place] for her port insertion. They called this morning and said they dont put ports in for iron deficiency. Dr Ratliff is asking if you really need her to have this done since she is very high risk. Please advise. documented in this encounter Plan of Treatment Upcoming Encounters Date Type Specialty Care Team Description 10/01/2020 Pharmacy Pharmacy [place] [address] [place] [address] 10/02/2020 Office Visit Hematology Oncology Tono Sanchez MD [address] [place] [address] [phone] 10/02/2020 Telemedicine Endocrinology Alberta Duque PA-C [address] [place] [address] [phone] 10/06/2020 Office Visit Orthopedics Jayme Benz MD [address] [place] [address] [phone] 10/12/2020 Imaging Radiology 10/28/2020 Office Visit Pharmacy [facility] [address], [place] [address] 11/30/2020 Office Visit Family Medicine Alexandra Caceres, [address], [place] [address] 12/01/2020 Nutrition Services Gastroenterology Melissa Omalley, SAMANTHA [address] [place] [address] [phone] 01/21/2021 Office Visit [facility]astroenterology Lyssa Stout[facility] [place] [address] [facility] [address] [phone] 09/09/2021 Imaging Radiology Health Maintenance Due Date [...] of this encounter Implants Implanted Type Area [place] Operator Device Identifier Shelf Expiration Date Model / Serial / Lot Microtech Sure Clip Implanted:Qty: 2 on 06/03/2020 by Janis Hatch DO at OR [facility] Clip N/A: Colon 04/21/2022 [facility]-F-26-2 35-C-R / / [id number] documented as of this encounter Advance Directives Documents on File Type Date Recorded Patient Insurance Follow Up Representative Expl anation Advanced Directive service a [...]
--- OUTSIDE RECORDS SUMMARY | 2023-05-10 21:43 | External Medical Summary | Summary of Care ---
Author Name Unknown Organization [place] [address] Care Team Providers Care Shipyard Laborer Name Role Phone Alexandra Caceres Primary Care Provider [phone] Reason for Visit * Reason Comments Dosage Adjustment Via Phone (anticoag Cl inic) Encounter Details Date Type Department Care Team Description 10/01/2020 Pharmacy Pharmacy, [place] [address] [place] [address] [facility] [address] [place] [address] [phone] Type 2 diabetes mellitus with hemoglobin A1c goal of less than 7.0% ([facility])* Allergies Active Allergy Reactions Severity Noted [...] 120 Vial 11 10/02/2019 Active nystatin (NYSTOP) 018967 UNIT/GM powder Apply topically to affected area [...] 30 mL 3 08/31/2020 Active Dexcom G6 Legal Support Manager Device Use as directed. To test [...] Tab 1 09/19/2020 Active OneTouch Delica Plus Pahlyz48X TESTING once daily 100 Each 3 09/28/2020 [...] pain 01/24/2012 01/17/2017 Genetic Sleep Disorder Research Other*[id number] 05/13/2011 04/07/2016 Obstructive sleep apnea 01/18/2011 12/27/19 [...] or bathing? 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-pv installer tech helps 07/15/2020 Because of a physical, [...] this encounter Progress Notes * Indira Hudson, [facility] - 10/01/2020 10:32 AM EST Patient requires Prior auth for Dexcom. Provided following: [facility] Federal: ID # [id number] Secondary [employer]: ID # [id number] 1) [facility] Federal: - called renu stated to call prior auth number- [phone]. Completed prior auth over the phone and supervisor purification, transmitter, and sensor approved from 09/11/20 through 10/01/21 -approval for pharm use only - was told to have pharmacy process supervisor purification first. Called and spoke with [facility] pharmacy. They state when they go to submit to insurance it states [facility] Federal is now secondary insurance and that patient has new primary insurance. Patient Phone Numbers Called and spoke and patient who will follow-up with pharmacy to provide all insurance information.Will await update from pharmacy. Will follow-up in 2 weeks or with updates. Indira Hudson [facility], Pharm D, BCACP Clinical Pharmacist 10/01/20 10:33 AM documented in this encounter Plan of Treatment Upcoming Encounters Date Type Specialty Care Team Description 10/02/2020 Office Visit Hematology Oncology Tono Sanchez MD [address] [place] [address] [phone] 10/02/2020 Telemedicine Endocrinology Alberta Duque PA-C [address] [place] [address] 10/06/2020 Office Visit Orthopedics Jayme Benz MD [address] [place] [address] 10/12/2020 Imaging Radiology 10/28/2020 Office Visit [facility]acy [facility] [address] [place] [address] [phone] 11/30/2020 Office Visit Family Medicine Alexandra Caceres DO [address] [place] [address] [phone] 12/01/2020 Nutrition Services Gastroenterology Melissa Omalley RDN [address] [place] [address] [phone] 01/21/2021 Office Visit Gastroenterology Lyssa Stout CRNP [address] [facility] [place] [address] [phone] 09/09/2021 Imaging Radiology Health Maintenance Due Date [...] of this encounter Implants Implanted Type Area Facility Administrator Device Identifier Shelf Expiration Date Model / Serial / Lot Microtech Sure Clip Implanted:Qty: 2 on 06/03/2020 by Janis Hatch DO at OR [facility] Clip N/A: Colon 04/21/2022 [facility]-F-26-2 35-C-R / / [id number] documented as of this encounter Visit Diagnoses Diagnosis Type 2 diabetes mellitus with hemoglobin A1c goal of less than 7.0% (HCC)- Primary documented in this encounter Advance Directives Documents on File Type Date Recorded Patient Editor Department Expl anation Advanced Directive service a [...]
--- OUTSIDE RECORDS SUMMARY | 2023-05-10 21:43 | External Medical Summary | Summary of Care ---
Author Name Unknown Organization [facility] Address [facility] [place] [address] Care Team Providers Care Gum Rolling Machine Operator Name Role Phone CarlosjosefaAlexandra fernandez Primary Care Provider [phone] Reason for Referral * Precert (Routine) Status Reason Specialty Diagnoses / Procedures Referred By Contact Referred To Contact Pending Review Precert Radiology Diagnoses Cerebral palsy, unspecified type (HCC) Wheelchair dependent Impaired mobility and ADLs Procedures IR VENOUS INTERVENTION Latrell Ratliff MD [address] [place] [address] Electronically signed by Latrell Ratliff MD at * Evaluate & Treat - Unlimited Visits (Within 10 days (routine)) Status Reason Specialty Diagnoses / Procedures Referred By Contact Referred To Contact Pending Review Specialty Services Required General Surgery Diagnoses Cerebral palsy, unspecified type (HCC) Latrell Ratliff MD [address] [place] [address] Electronically signed by Latrell Ratliff MD at Reason for Visit * Reason Comments NEW PATIENT port consult * Evaluate & Treat - Unlimited Visits (Within 3 days (urgent)) Status Reason Specialty Diagnoses / Procedures Referred By Contact Referred To Contact Pending Review Specialty Services Required General Surgery Diagnoses Iron deficiency anemia due to chronic blood loss Tono Sanchez MD [address] [facility] [place] [address] Encounter Details Date Type Department Care Team Description 09/30/2020 Office Visit General Surgery, [facility] [address] [place] [address] Latrell Ratliff MD [address] [place] [address] [phone] Cerebral palsy, unspecified type (HCC)*; Wheelchair dependent; Impaired mobility and ADLs; History of difficult venous access Allergies Active Allergy Reactions Severity Noted Date Comments Adhesive Tape Itching 04/29/2020 Penicillins Rash 02/12/2008 Perflutren Protein A Microsph 2019 Definity-lower back pain documented as of this encounter (statuses as of 09/30/2020) Medications Medication Sig Dispensed Refills Start Date [...] 120 Vial 11 10/02/2019 Active nystatin (NYSTOP) 880459 UNIT/GM powder Apply topically to affected area [...] 30 mL 3 08/31/2020 Active Dexcom G6 Petroleum Engineer Device Use as directed. To test [...] Tab 1 09/19/2020 Active OneTouch Delica Plus Dbsblo56S TESTING once daily 100 Each 3 09/28/2020 Active Vita CocoTouch Verio In Vitro Strip (Glucose Blood) TESTING once daily 100 Strip 3 09/28/2020 Active documented as of this encounter (statuses as of 09/30/2020) Active Problems Problem Noted Date Uncontrolled type [...] as of this encounter (statuses as of 09/30/2020) Resolved Problems Problem Noted Date Resolved Date [...] pain 01/24/2012 01/17/2017 Genetic Sleep Disorder Research Other*[id number] 05/13/2011 04/07/2016 Obstructive sleep apnea 01/18/2011 12/27/19 [...] as of this encounter (statuses as of 09/30/2020) Immunizations Name Administration Dates Next Due HEP [...] or bathing? 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-metallurgical engineering teacher helps 07/15/2020 Because of a physical, menta [...] over ideal weight or BMI > 40) ([facility]) E66.01 Dyslipidemia, goal LDL below 70 E78.5 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 R39.81 Acquired hypothyroidism E03.9 Chronic pain syndrome G89.4 MEDICATION USE AGREEMENT [id number] Cirrhosis of liver (HCC) K74.60 THAD on [...] loss anemia D62 Esophagitis K20.90 Esophageal varices ([facility]) I85.00 Uncontrolled type 2 diabetes mellitus with hyperglycemia ([facility]) E11.65 PAST MEDICAL HISTORY: Past Medical History: Diagnosis Date Cerebral palsy ([facility]) 01/24/2012 Chronic constipation Chronic hypoxemic respiratory failure ([facility]) 04/08/2019 Chronic pain 03/27/2012 Cirrhosis [...] of less than 7.0% ([facility]) 09/26/2013 ICD-10 update of inactive term PAST SURGICAL HISTORY: Past Surgical History: Procedure Laterality Date BONE DEBRIDEMENT, FIRST 20 CM2 Right 04/16/2020 DEBRIDEMENT SKIN SUBCUTANEOUS TISSUE MUSCLE AND BONE performed by Josh Vazquez MD at [facility] DELIVERY 04/20/1982 COLONOSCOPY 04/21/2009 repeat in 10 years COLONOSCOPY, DIAGNOSTIC (RECTUM) 10/04/2016 normal bx, repeat 10 yrs/[facility] COLONOSCOPY, DIAGNOSTIC (RECTUM) N/A 06/03/2020 internal hemorrhoids/biopsies show adenomatous polyps/recall 5 years/COLONOSCOPY FLEXIBLE PROXIMAL DIAGNOSTIC performed by Janis Hatch DO at [facility] DENTAL SURGERY PROCEDURE NEC wisdom [...] formed by Janis Hatch DO at [facility] EGD, FLEXIBLE, DIAGNOSTIC 11/27/2019 eso varices, portal hypertensive gastropathy, gastritis / [facility] EGD, FLEXIBLE, DIAGNOSTIC N/A 08/05/2020 large amount of food in stomach/repeat 1.5 years/ESOPHAGOGASTRODUODENOSCOPY (EGD), FLEXIBLE, TRANSORAL, DIAGNOSTIC performed by Janis Hatch DO at OR [facility] PELVIS/HIP JOINT SURGERY NEC teenager aid in walking REPAIR/GRAFT ACHILLES TENDON age 40 aid in walking FAMILY HISTORY: Family History Problem Relation Age of Onset Heart Disorder Father of [place] at age 61 Diabetes Father Heart Disorder Mother of [place] age 72 Cancer None Arthritis None Stroke [...] Medication Sig Dispense Refill OneTouch Delica Plus Isiwsd15H TESTING once daily 100 Each 3 OneTouch [...] (6 UNITS) 15 mL 0 Dexcom G6 Petroleum Engineer Device Use as directed. To test [...] With spacer 16 g 1 nystatin (NYSTOP) 502257 UNIT/GM powder Apply topically to affected area [...] pt [place] [facility] [place] the [place], pt will see [facility] [place], I answered all questions, PRIMARY CARE PHYSICIAN: Alexandra Caceres DO documented in this encounter Nursing Notes * Miley Doshi LPN - 09/30/2020 12:03 PM EST Chief Complaint Patient presents with NEW PATIENT port consult documented in this encounter Plan of Treatment Upcoming Encounters Date Type Specialty Care Team Description 10/01/2020 Pharmacy [facility] [place] [address] [facility] [place] [id number] 10/02/2020 Office Visit Hematology Oncology Tono Sanchez MD [address] [facility] [place] [address] [phone] 10/02/2020 Telemedicine Endocrinology Alberta Duque PA-C [address] [place] [address] [phone] 10/06/2020 Office Visit Orthopedics Jayme Benz MD [address] [place] [address] [phone] 10/12/2020 Imaging Radiology 10/28/2020 Office Visit Pharmacy [place] [address] [place], [place] [address] 11/30/2020 Office Visit Family Medicine Alexandra Caceres DO [address], [place] [address] 12/01/2020 Nutrition Services Gastroenterology Melissa Omalley, SAMANTHA [address] [place] [address] [phone] 01/21/2021 Office Visit Gastroenterology Lyssa Stout CRNP [address] [facility] [place] [address] [phone] 09/09/2021 Imaging Radiology Scheduled Orders Name Type Priority Associated Diagnoses Orde r Schedule IR VENOUS INTERVENTION Medical Imaging Routine Cerebral palsy, unspecified type (HCC) Wheelchair dependent Impaired mobility and ADLs Ordered: 09/30/2020 Scheduled Referrals Name Type Priority Associated Diagnoses [...] this encounter Implants Implanted Type Area Clinical Research Spec Device Identifier Shelf Expiration Date Model / Serial / Lot Microtech Sure Clip Implanted:Qty: 2 on 06/03/2020 by Janis Hatch DO at OR [facility] Clip N/A: Colon 04/21/2022 [facility]-F-26-2 35-C-R / / [id number] documented as of this encounter Visit Diagnoses Diagnosis Cerebral palsy, unspecified type (HCC)- Primary Wheelchair dependent Wheelchair dependence Impaired mobility and ADLs Mechanical problems with limbs History of difficult venous access documented in this encounter Advance Directives Documents on File Type Date Recorded Patient Hotel Receptionist Expl anation Advanced Directive service a kerri [...] on File Name Relationship Healthcare Agent Romainwv p Communication Syed Bustos Spouse Emergency Contact
--- OUTSIDE RECORDS SUMMARY | 2023-05-10 21:43 | External Medical Summary | Summary of Care ---
Author Name Unknown Organization [place] [address] Care Team Providers Care Metal Tile Lather Name Role Phone Alexandra Caceres Primary Care Provider [phone] Reason for Visit * Reason Onset Date Comments Advice 10/01/2020 Encounter Details Date Type Department Care Team Description 10/01/2020 Telephone Hematology/Oncology [facility] [address] [place] [address] oTno Sanchez MD [address] [place] [address] [phone] Advice Allergies Active Allergy Reactions Severity Noted [...] 120 Vial 11 10/02/2019 Active nystatin (NYSTOP) 093042 UNIT/GM powder Apply topically to affected area [...] 30 mL 3 08/31/2020 Active Dexcom G6 Piling Setter Device Use as directed. To test [...] Tab 1 09/19/2020 Active OneTouch Delica Plus Pfnuxx30W TESTING once daily 100 Each 3 09/28/2020 [...] pain 01/24/2012 01/17/2017 Genetic Sleep Disorder Research Other*[id number] 05/13/2011 04/07/2016 Obstructive sleep apnea 01/18/2011 12/27/19 [...] or bathing? 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-nanny caregiver helps 07/15/2020 Because of a physical, [...] not tunnel catheter. She will call at [facility] IR regarding port placement. * Telephone Encounter - Francine Okeefe RN - 10/01/2020 3:23 PM EST Received a voicemail from Kristin Alva at [facility] scheduling regarding a port placement for patient. She would like called back at [phone] * Telephone Encounter - Kristin Alva OSA - 10/01/2020 9:[address] Ratliff referred patient to IR Radiology in [place] for her port insertion. They called this [...] Orthopedics Jayme Benz MD [address] [place] [address] 10/12/2020 Imaging Radiology 10/16/2020 Pharmacy Pharmacy [facility] [address] [place] [address] 11/30/2020 Office Visit Family Medicine Alexandra Caceres, [address] [place] [address] 12/01/2020 Nutrition Services Gastroenterology Melissa Omalley RDN [address] [place], [place] [address] 01/01/2021 Office Visit Hematology Oncology Tono Sanchez MD [address] [place] [address] 01/21/2021 Office Visit Gastroenterology Lyssa Stout CRNP [address] [place] [address] 09/09/2021 Imaging Radiology Health Maintenance [...] of this encounter Implants Implanted Type Area Piping Designer Device Identifier Shelf Expiration Date Model / Serial / Lot Microtech Sure Clip Implanted:Qty: 2 on 06/03/2020 by Janis Hatch DO at OR [facility] Clip N/A: Colon 04/21/2022 [facility]-F-26-2 35-C-R / / [id number] documented as of this encounter Advance Directives Documents on File Type Date Recorded Patient Weblogic Developer Expl anation Advanced Directive service a [...]
--- OUTSIDE RECORDS SUMMARY | 2023-05-10 21:44 | External Medical Summary | Summary of Care ---
Author Name Unknown Organization [place] [address] Care Team Providers Care Outside Cutter Name Role Phone Alexandra Caceres Primary Care Provider [phone] Reason for Visit * Reason Onset Date Comments Appointment 09/24/2020 Encounter Details Date Type Department Care Team Description 09/24/2020 Telephone Hematology/Oncology [facility] [address] [place] [address] Tono Sanchez MD [address] [place] [address] [phone] Appointment Allergies Active Allergy Reactions Severity Noted Date Comments Adhesive Tape Itching 04/29/2020 Penicillins Rash 02/12/2008 Perflutren Protein A Microsph 2019 Definity-lower back pain documented as of this encounter (statuses as of 09/24/2020) Medications Medication Sig Dispensed Refills Start Date [...] Patient not taking. Informant: Pharmacy, Reported on 09/23/2020 nystatin (NYSTOP) 343610 UNIT/GM powder Apply topically to affected area [...] Patient not taking. Informant: Pharmacy, Reported on 09/23/2020 Blood Glucose Monitoring Suppl (BLOOD GLUCOSE MONITOR SYSTEM) w/Device KIT Use to test once per day. 1 Kit 0 11/19/2019 Active Glucose Blood (BLOOD GLUCOSE TEST) STRP Use to test once per day. 100 Strip 3 11/19/2019 Active Lancets MISC Use to test once per day. 100 Each 3 11/19/2019 Active levothyroxine (LEVOXYL) 200 MCG Tablet [...] 2 05/21/2020 Active traZODone (DESYREL) 50 MG TabletIndications:Sl [...] Active Trulicity 1.5 MG/0.5ML Subcutaneous Solution Pen-injector (Dulaglutide)Indicat ions:Type 2 [...] a day. 60 Each 3 07/27/2020 Active Additional Information Patient not taking. Reported on 09/23/2020 Cyclobenzaprine HCl 10 MG Oral Tablet (FLEXERIL) [...] mL 3 08/31/2020 Active Dexcom G6 Solar Energy Engineer Device Use as directed. To test [...] 09/17/2020 Active Nadolol 20 MG Oral Tablet (CORGARD)Indications :HTN, goal below 140/90 One daily 90 Tab 1 09/19/2020 Active documented as of this encounter (statuses as of 09/24/2020) Active Problems Problem Noted Date Uncontrolled type [...] as of this encounter (statuses as of 09/24/2020) Resolved Problems Problem Noted Date Resolved Date [...] pain 01/24/2012 01/17/2017 Genetic Sleep Disorder Research Other*[id number] 05/13/2011 04/07/2016 Obstructive sleep apnea 01/18/2011 12/27/19 [...] as of this encounter (statuses as of 09/24/2020) Immunizations Name Administration Dates Next Due HEP [...] Telephone Encounter - Kristin Alva OSA - 09/24/2020 3:13 PM EST Lm with female to return call * Telephone Encounter - Janett Triana OSA - 09/24/2020 11:13 AM EST General Surgery-please contact patient for port placement. Thank You. documented in this encounter Plan of Treatment Upcoming Encounters Date Type Specialty Care Team Description 10/02/2020 Office Visit Hematology Oncology Tono Sanchez MD [address] [place] [address], [place] [address] [phone] 10/02/2020 Telemedicine Endocrinology Alberta Duque PA-C [address] [place] [address] 10/06/2020 Office Visit Orthopedics Jayme Benz MD [address] [place] [address] 10/12/2020 Imaging Radiology 10/28/2020 Office Visit Pharmacy [facility] [address] [place] [address] [phone] 11/30/2020 Office Visit Family Medicine Alexandra Caceres, [address] [place], [place] [address] 12/01/2020 Nutrition Services Gastroenterology Melissa Omalley RDN [address] [place] [address] [phone] 01/21/2021 Office Visit Gastroenterology Lyssa Stout CRNP [address] [facility] [place] [address] 09/09/2021 Imaging Radiology Health Maintenance Due [...] of this encounter Implants Implanted Type Area Accredited Legal Secretary Device Identifier Shelf Expiration Date Model / Serial / Lot Microtech Sure Clip Implanted:Qty: 2 on 06/03/2020 by Janis Hatch DO at OR [facility] Clip N/A: Colon 04/21/2022 [facility]-F-26-2 35-C-R / / [id number] documented as of this encounter Advance Directives Documents on File Type Date Recorded Patient Marketing Campaign Analyst Expl anation Advanced Directive service a [...] Agents on File Name Relationship Healthcare Agent Romainks p Communication Syed Bustos Spouse Emergency Contact
--- OUTSIDE RECORDS SUMMARY | 2023-05-10 21:44 | External Medical Summary | Summary of Care ---
Author Name Unknown Organization [place] [address] Care Team Providers Care Dairy Hand Name Role Phone Alexandra Caceres Primary Care Provider [phone] Reason for Visit * Reason Onset Date Comments Appointment 09/24/2020 Encounter Details Date Type Department Care Team Description 09/24/2020 Telephone Hematology/Oncology [facility] [address] [place] [address] Tono Sanchez MD [address] [place] [address] [phone] Appointment Allergies Active Allergy Reactions Severity Noted Date Comments Adhesive Tape Itching 04/29/2020 Penicillins Rash 02/12/2008 Perflutren Protein A Microsph 2019 Definity-lower back pain documented as of this encounter (statuses as of 09/28/2020) Medications Medication Sig Dispensed Refills Start Date [...] Informant: Pharmacy, Reported on 09/23/2020 nystatin (NYSTOP) 097773 UNIT/GM powder Apply topically to affected area [...] 30 mL 3 08/31/2020 Active Dexcom G6 [place]ation Worker Device Use as directed. To test [...] as of this encounter (statuses as of 09/28/2020) Active Problems Problem Noted Date Uncontrolled type [...] as of this encounter (statuses as of 09/28/2020) Resolved Problems Problem Noted Date Resolved Date [...] pain 01/24/2012 01/17/2017 Genetic Sleep Disorder Research Other*[id number] 05/13/2011 04/07/2016 Obstructive sleep apnea 01/18/2011 12/27/19 [...] as of this encounter (statuses as of 09/28/2020) Immunizations Name Administration Dates Next Due HEP [...] or bathing? 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-advertising account manager helps 07/15/2020 Because of a physical, [...] encounter Miscellaneous Notes * Telephone Encounter - Tanya Armstrong RN - 09/28/2020 8:09 AM EST 2nd attempt to contact patient - left message for patient to return my call. Tanya Armstrong Intake Nurse Navigator General Surgery Department [facility] * Telephone Encounter - Kristin Alva OSA - 09/24/2020 3:13 PM EST Lm with female to return call * Telephone Encounter - Janett Triana OSA - 09/24/2020 11:13 AM EST General Surgery-please contact patient for port placement. Thank You. documented in this encounter Plan of Treatment Upcoming Encounters Date Type Specialty Care Team Description 09/29/2020 Pharmacy [facility] [address], [place] [address] 10/02/2020 Office Visit Hematology Oncology Tono Sanchez MD [address] [place] [address] [phone] 10/02/2020 Telemedicine Endocrinology Alberta Duque PA-C [address] [place] [address] 10/06/2020 Office Visit Orthopedics Jayme Benz MD [address] [place] [address] 10/12/2020 Imaging Radiology 10/28/2020 Office Visit [facility] [address], [place] [address] 11/30/2020 Office Visit Family Medicine Alexandra Caceres, [address] [place], [place] [address] 12/01/2020 Nutrition Services Gastroenterology Melissa Omalley RDN [address] [place] [address] [phone] 01/21/2021 Office Visit Gastroenterology Lyssa Stout CRNP [address] [facility] [place] [address] [phone] 09/09/2021 Imaging Radiology Health Maintenance Due Date [...] of this encounter Implants Implanted Type Area Boat Garnisher Device Identifier Shelf Expiration Date Model / Serial / Lot Microtech Sure Clip Implanted:Qty: 2 on 06/03/2020 by Janis Hatch DO at OR [facility] Clip N/A: Colon 04/21/2022 [facility]-F-26-2 35-C-R / / [id number] documented as of this encounter Advance Directives Documents on File Type Date Recorded Patient Department Operations Manager Expl 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
--- OUTSIDE RECORDS SUMMARY | 2023-05-10 21:44 | External Medical Summary | Summary of Care ---
Author Name Unknown Organization [place] [address] Care Team Providers Care Apartment House Manager Name Role Phone Alexandra Caceres Primary Care Provider [phone] Reason for Visit * Reason Onset Date Comments Pre Cert/Prior Auth 09/25/2020 Encounter Details Date Type Department Care Team Description 09/25/2020 Telephone Pharmacy, [place] [address] [place] [address] [facility] [address] [place] [address] [phone] Pre Cert/Prior Auth Allergies Active Allergy Reactions Severity Noted Date Comments Adhesive Tape Itching 04/29/2020 Penicillins Rash 02/12/2008 Perflutren Protein A Microsph 2019 Definity-lower back pain documented as of this encounter (statuses as of 09/25/2020) Medications Medication Sig Dispensed Refills Start Date [...] Informant: Pharmacy, Reported on 09/23/2020 nystatin (NYSTOP) 769075 UNIT/GM powder Apply topically to affected area [...] 30 mL 3 08/31/2020 Active Dexcom G6 Wallpaper Inspector And Shipper Device Use as directed. To test blood [...] as of this encounter (statuses as of 09/25/2020) Active Problems Problem Noted Date Uncontrolled type [...] as of this encounter (statuses as of 09/25/2020) Resolved Problems Problem Noted Date Resolved Date [...] pain 01/24/2012 01/17/2017 Genetic Sleep Disorder Research Other*[id number] 05/13/2011 04/07/2016 Obstructive sleep apnea 01/18/2011 12/27/19 [...] as of this encounter (statuses as of 09/25/2020) Immunizations Name Administration Dates Next Due HEP [...] or bathing? 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-portfolio lead helps 07/15/2020 Because of a physical, menta [...] Notes * Telephone Encounter - Indira Hudson RP - 09/25/2020 5:48 PM EST "[facility] calling to report that xochitl freestyle needs PA before can be filled. If any questions, can be contacted at [phone]" Called and spoke with [facility]. Discussed prefer Dexcom vs Xochitl. Dexcom also requires prior auth on both insurances Provided following [facility] Federal: ID # [id number] Secondary Express Scripts: ID # [id number] Tried to call [facility] and could not get through Will follow-up in 4 days Indira Hudson RPh, Pharm D, BCACP Clinical Pharmacist 09/25/20 6:14 PM * Telephone Encounter - Loren Lucero OSA - 09/25/2020 3:02 PM EST [facility] calling to report that xochitl kirby needs PA before can be filled. If any questions, can be contacted at [phone] Thank you, Loren Lucero [facility] Building Maintenance Custodian I documented in this encounter Plan of Treatment Upcoming Encounters Date Type Specialty Care Team Description 09/29/2020 Pharmacy Pharmacy [facility] [address], [place] [address] 10/02/2020 Office Visit Hematology Oncology Tono Sanchez MD [address] [place] [address] [phone] 10/02/2020 Telemedicine Endocrinology Alberta Duque PA-C [address] [place] [address] 10/06/2020 Office Visit Orthopedics Jayme Benz MD [address] [place] [address] [phone] 10/12/2020 Imaging Radiology 10/28/2020 Office Visit Pharmacy [facility] [address] [place] [address] [phone] 11/30/2020 Office Visit Family Medicine Alexandra Caceres DO [address] [place] [address] [phone] 12/01/2020 Nutrition Services Gastroenterology Melissa Omalley RDN [address] [place] [address] [phone] 01/21/2021 Office Visit Gastroenterology Lyssa Stout, ZAK [address] [facility] [place] [address] [phone] 09/09/2021 Imaging Radiology Health Maintenance Due Date [...] Implants Implanted Type Area Right Of Way Clearer Device Identifier Shelf Expiration Date Model / Serial / Lot Microtech Sure Clip Implanted:Qty: 2 on 06/03/2020 by Janis Hatch DO at OR [facility] Clip N/A: Colon 04/21/2022 [facility]-F-26-2 35-C-R / / [id number] documented as of this encounter Advance Directives Documents on File Type Date Recorded Patient Tile Applicator Expl anation Advanced Directive service a kerri [...]
--- OUTSIDE RECORDS SUMMARY | 2023-05-10 21:45 | External Medical Summary | Summary of Care ---
Author Name Unknown Organization [facility] Address [place] [address] Care Team Providers Care Multifold Operator Name Role Phone QamarkleberAlexandra fernandez Primary Care Provider [phone] Encounter Details Date Type Department Care Team Description 09/23/2020 [facility]ation [facility] [address] [facility] [address] [facility] 132 [place] [address] [phone] Cirrhosis of liver without ascites, unspecified hepatic cirrhosis type (HCC); Iron deficiency anemia due to chronic [...] Informant: Pharmacy, Reported on 09/23/2020 nystatin (NYSTOP) 339825 UNIT/GM powder Apply topically to affected area [...] 30 mL 3 08/31/2020 Active Dexcom G6 Sheet Metal Worker Maintenance Device Use as directed. To test blood [...] pain 01/24/2012 01/17/2017 Genetic Sleep Disorder Research Other*[id number] 05/13/2011 04/07/2016 Obstructive sleep apnea 01/18/2011 12/27/19 [...] or bathing? 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-installer apprentice helps 07/15/2020 Because of a physical, menta [...] as of this encounter Nursing Notes * Data, Entry - 09/24/2020 5:35 AM EST Automated conversion to a Documentation Encounter documented in this encounter Plan of Treatment Upcoming Encounters Date Type Specialty Care Team Description 10/02/2020 Office Visit Hematology Oncology Tono Sanchez MD [address] [place] [address] [phone] 10/02/2020 Telemedicine Endocrinology Alberta Duque PA-C [address] [place] [address] [phone] 10/06/2020 Office Visit Orthopedics Jayme Benz MD [address] [place] [address] [phone] 10/12/2020 Imaging Radiology 10/28/2020 Office Visit [facility] [address] [facility] [address] [phone] 11/30/2020 Office Visit Family Medicine Alexandra Caceres, DO [address] [facility] [address] [phone] 12/01/2020 Nutrition Services Gastroenterology Melissa Omalley, RDN [address] [place] [address] [phone] 01/21/2021 Office Visit Gastroenterology Lyssa Stout, ZAK [address] [facility] [place] [address] [phone] 09/09/2021 Imaging Radiology Health Maintenance Due Date [...] of this encounter Implants Implanted Type Area Fan Blade Truer Device Identifier Shelf Expiration Date Model / Serial / Lot Microtech Sure Clip Implanted:Qty: 2 on 06/03/2020 by Janis Hatch DO at OR [facility] Clip N/A: Colon 04/21/2022 [facility]-F-26-2 35-C-R / / [id number] documented as of this encounter Procedures Procedure Name Priority Date/Time Associated Diagnosis Comments IRON SCREEN, INCLUDING TIBC STAT 09/23/2020 2:42 PM EST Iron deficiency anemia due to chronic blood loss CBC/DIFF STAT 09/23/2020 2:42 PM EST Iron deficiency anemia due to chronic blood loss FERRITIN STAT 09/23/2020 2:42 PM EST Iron deficiency anemia due to chronic blood loss BUN Routine 09/23/2020 2:36 PM EST Cirrhosis of liver without ascites, unspecified hepatic cirrhosis type (HCC) CREATININE SERUM Routine 09/23/2020 2:36 PM EST Cirrhosis of liver without ascites, unspecified hepatic cirrhosis type (HCC) ALPHA-FETOPROTEIN Routine 09/23/2020 2:3 6 PM EST Cirrhosis of liver without ascites, unspecified hepatic cirrhosis type (HCC) documented in this encounter Results * CBC/DIFF (09/23/2020 2:42 PM EST) WBC 2.19(L) 4.00 - 10.80 K/uL [facility] RBC 2.71(L) 3.85 - 5.15 M/uL [facility] HGB 7.2(L) 12.0 - 15.3 g/dL [facility] HCT 25.1(L) 36.0 - 45.2 % [facility] MCV 92.6 81.5 - 97.5 fL [facility] MCH 26.6(L) 27.0 - 34.0 pg [facility] MCHC 28.7(L) 32.0 - 36.0 g/dL [facility] RDW 21.0(H) 11.5 - 15.5 % [facility] PLATELET COUNT 76(L) 140 - 400 K/uL [facility] MPV NO RESULT - ABNORMAL PLATELET DISTRIBUTION 6.6 - 11.1 fL [facility] NEUTS 53.5 40 - 75 % [facility] LYMPHS 26.0 18 - 42 % [facility] MONOS 12.8(H) 1 - 11 % [facility] EOS 6.8(H) 0 - 6 % [facility] BASOS 0.9 0 - 2 % [facility] ABS. NEUTS 1.17(L) 1.8 - 7.7 K/uL [facility] ABS. LYMPHS 0.57(L) 1.0 - 4.8 K/uL [facility] ABS. MONOS 0.28 0.0 - 1.1 K/uL [facility] ABS. EOS 0.15 0.0 - 0.7 K/uL [facility] ABS. BASOS 0.02 0.0 - 0.2 K/uL [facility] ANISOCYTOSIS SLIGHT [facility] POLYCHROMASIA SLIGHT [facility] HYPOCHROMIA SLIGHT [facility] OVALOCYTES FEW [facility] TEARDROP CELLS FEW [facility] Specimen [facility] [address] [facility] [place] [address] * IRON SCREEN, INCLUDING TIBC (09/23/2020 2:42 PM EST) IRON 26(L) 33 - 151 ug/dL [facility] IRON BINDING CAP 352 250 - 425 ug/dL [facility] TRANSFERRIN SAT % 7(L) 15 - 55 % [facility] Specimen Performing Organization Address City/[facility]/ZIP Co de Phone Number [facility] [address] [place] [address] * FERRITIN (09/23/2020 2:42 PM EST) FERRITIN 22.5 Comment: Postmenopausal women have higher ferritin level than pre-menopausal women. The above reference interval is based on pre-menopausal women. 13 - 150 ng/mL [facility] Specimen Performing Organization Address City/[facility]/ZIP Co de Phone Number [facility] [address] [place] [address] * ALPHA-FETOPROTEIN TUMOR MARKER (09/23/2020 2:36 PM EST) ALPHA-FETOPROTEIN 2.9 0 - 8.3 ng/mL [facility] Specimen Performing Organization Address City/[facility]/ZIP Co de Phone Number [facility] [address] [place] [address] * BUN (09/23/2020 2:36 PM EST) BUN 10 6 - 20 mg/dL [facility] Specimen Performing Organization Address City/[facility] Co de Phone Number [facility] [address] [place] [address] * CREATININE (09/23/2020 2:36 PM EST) CREATININE 0.6 0.5 - 1.0 mg/dL [facility] E GLOM FILT RATE >60.0Comment:If patient is , multiply estimated GFR by 1.159. >60 [facility] Specimen Performing Organization Address City/[facility] Co de Phone Number [facility] [address] [place] [address] documented in this encounter Visit Diagnoses Diagnosis Cirrhosis of liver without ascites, unspecified hepatic cirrhosis type (HCC) 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 (chronic) documented in this encounter Advance Directives Documents on File Type Date Recorded Patient Travel Occupational Therapist Expl anation Advanced Directive service a [...]
--- OUTSIDE RECORDS SUMMARY | 2023-05-10 21:45 | External Medical Summary ---
Author Name Unknown Address [facility] N [facility] [place] [address] Phone Organization K01:[place] [id number] Laboratory Report Ordering Provider Test Date Status OUSMANE BACK 09/24/2020 17:16:00 Final Observation Date Value Abnormality Reference (Units ) Status Troponin T 09/24/2020 18:03 8 0-14 (ng/L) Final Performing Location [address] [address]
--- OUTSIDE RECORDS SUMMARY | 2023-05-10 21:45 | External Medical Summary | Summary of Care ---
Author Name Unknown Organization [facility] Address [place] [address] Care Team Providers Care Evaporator Operator Molasses Name Role Phone Alexandra Caceres DO Primary Care Provider [phone] Reason for Visit * Reason Onset Date Comments Advice 09/24/2020 shortness of victoria ath Encounter Details Date Type Department Care Team Description 09/24/2020 Telephone [facility] [address], [place] [address] Alexandra Caceres DO [address] [place] [address] [phone] Advice (shortness of breath) Allergies Active Allergy Reactions Severity Noted Date [...] Informant: Pharmacy, Reported on 09/23/2020 nystatin (NYSTOP) 467841 UNIT/GM powder Apply topically to affected area [...] 30 mL 3 08/31/2020 Active Dexcom G6 Police Cadet Device Use as directed. To test blood [...] pain 01/24/2012 01/17/2017 Genetic Sleep Disorder Research Other*[id number] 05/13/2011 04/07/2016 Obstructive sleep apnea 01/18/2011 12/27/19 [...] or bathing? 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-hot wire glass tube cutter helps 07/15/2020 Because of a physical, [...] Telephone Encounter - Josselin Gaspar LPN - 09/24/2020 2:25 PM EST Spoke to patient who is audibly wheezing and short of breath. Having a hard time talking. She says it has gotten much worse in the last two days. Spoke to at her request-he says he has been giving her nebulizer treatments but they don't help with the shortness of breath. Advised the ER, he will take her. * Telephone Encounter - Linnette Mcdonald LPN - 09/24/2020 2:14 PM EST Pt calling and states that when she lays flat, she feels like she has to gasp for air and feels SOB. States that this has been occurring for about a month now. Also states that she has a constant cough and is productive at times and the mucous is white in color. Denies fever, loss of taste, nausea, vomiting, diarrhea and contact with covid. Pt states that she does feel SOB even when sitting up sometimes, can audibly hear pt wheezing over the phone. Has nasal congestion and states that she can not breath through her nose at this time. Also noted pt to have an occasional congested cough while on the phone. Called PCP office and spoke with Pura and transferred the call to her per request. * Telephone Encounter - Marie Magallanes OSA - 09/24/2020 2:06 PM EST Reason for patient's call: Pt states she keeps "gasping for air" Caller was transferred to Linnette at the nurse line. documented in this encounter Plan of Treatment Upcoming Encounters Date Type Specialty Care Team Description 10/02/2020 Office Visit Hematology Oncology Tono Sanchez MD [address] [place] [address] [phone] 10/02/2020 Telemedicine Endocrinology Alberta Duque PA-C [address] [place] [address] 10/06/2020 Office Visit Orthopedics Jayme Benz MD [address] [place], [place] [address] 10/12/2020 Imaging Radiology 10/28/2020 Office Visit Pharmacy Artemio Candel[facility] [address] [place] [address] [phone] 11/30/2020 Office Visit Family Medicine Alexandra Caceres DO [address] [place] [address] [phone] 12/01/2020 Nutrition Services Gastroenterology Melissa Omalley, RDN [address] [place] [address] 01/21/2021 Office Visit [facility]astroenterology Lyssa Stout CRNP [facility] [place] [address] [phone] 09/09/2021 Imaging Radiology Health Maintenance Due Date [...] this encounter Implants Implanted Type Area Mold Chipper Device Identifier Shelf Expiration Date Model / Serial / Lot Microtech Sure Clip Implanted:Qty: 2 on 06/03/2020 by Janis Hatch DO at OR [facility] Clip N/A: Colon 04/21/2022 [facility]-F-26-2 35-C-R / / [id number] documented as of this encounter Advance Directives Documents on File Type Date Recorded Patient Pourer Off Expl anation Advanced Directive service a kerri [...]
--- OUTSIDE RECORDS SUMMARY | 2023-05-10 21:45 | External Medical Summary ---
Author Name Unknown Address [facility] [address] [facility] [place] [address] Phone Organization K01:[address] [place] [address] Laboratory Report Ordering Provider Test Date Status LISSETTE TOMPKINS 09/24/2020 18:51:00 Final Observation Date Value Abnormality Reference (Units ) Status Troponin T 09/24/2020 19:22 8 0-14 (ng/L) Final Performing Location [address] [place] [address]
--- OUTSIDE RECORDS SUMMARY | 2023-05-10 21:45 | External Medical Summary | Summary of Care ---
Author Name [place] [address] Care Team Providers Care Job Coach/Job Developer Name Role Phone NikAlexandra fernandez Daisha MORENO Primary Care Provider Reason for Referral * Evaluate & Treat - Unlimited Visits (Within 3 days (urgent)) Status Reason Specialty Diagnoses / Procedures Referred By Contact Referred To Contact Pending Review Specialty Services Required General Surgery Diagnoses Iron deficiency anemia due to chronic blood loss Tono Sanchez MD [address] [place] [address] Reason for Visit * Reason Onset Date Comments Referral 09/24/2020 surgery Encounter Details Date Type Department Care Team Description 09/24/2020 Telephone Hematology/Oncology Treatment, [address] [address] Tono Sanchez MD [address] [place] [address] [phone] Referral (surgery) Allergies Active Allergy Reactions Severity Noted Date [...] Informant: Pharmacy, Reported on 09/23/2020 nystatin (NYSTOP) 876355 UNIT/GM powder Apply topically to affected area [...] than 7.0% ([facility]) Inject 25 units under the skin once a day 30 mL 3 08/31/2020 Active Dexcom G6 Tank Tester Device Use as directed. To test [...] pain 01/24/2012 01/17/2017 Genetic Sleep Disorder Research Other*[id number] 05/13/2011 04/07/2016 Obstructive sleep apnea 01/18/2011 12/27/19 [...] or bathing? 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-washery boss helps 07/15/2020 Because of a physical, menta [...] Encounter - Janett Triana OSA - 09/24/2020 1:27 PM EST Referral was sent over to General Surgery for them to contact patient and schedule an appt. * Telephone Encounter - Reyes Negron RN - 09/24/2020 11:00 AM EST Called pt to see where she would like to have venofer infusions done. Pt stated [place] because they have a vein finder. Pt then stated that the nurse in [place] said she should have a "thing put in my chest" for IV access. Discussed what a port is and that it is an outpatient surgical procedure.Pt would like a surgical consult to discuss port futher in [facility]. Discussed with Dr Sanchez - Surgical consult ordered. Scheduling: please follow up on surgery referral. Pt would like to be seen at [facility] documented in this encounter Plan of Treatment Upcoming Encounters Date Type Specialty Care Team Description 10/02/2020 Office Visit Hematology Oncology Tono Sanchez MD [address] [place] [address] [phone] 10/02/2020 Telemedicine Endocrinology Alberta Duque PA-C [address] [place] [address] 10/06/2020 Office Visit Orthopedics Jayme Benz MD [address] [place] [address] 10/12/2020 Imaging Radiology 10/28/2020 Office Visit Pharmacy [facility] [address] [place], [place] [address] 11/30/2020 Office Visit Family Medicine Alexandra Caceres, [address] [place] [address] [phone] 12/01/2020 Nutrition Services Gastroenterology Melissa Omalley RDN [address] [place] [address] [phone] 01/21/2021 Office Visit Gastroenterology Lyssa Stout CRNP [address] [facility] [place] [address] [phone] 09/09/2021 Imaging Radiology Scheduled Referrals Name Type Priority Associated Diagnoses Orde r Schedule SURGERY REFERRAL OP Referral Within 3 day s (urgent) Iron deficiency anemia due to chronic blood loss Ordered: 09/24/2020 Health Maintenance Due Date Last Done Comments [...] this encounter Implants Implanted Type Area Nuclear Engineering Technician Device Identifier Shelf Expiration Date Model / Serial / Lot Microtech Sure Clip Implanted:Qty: 2 on 06/03/2020 by Janis Hatch DO at OR [facility] Clip N/A: Colon 04/21/2022 [facility]-F-26-2 35-C-R / / [id number] documented as of this encounter Visit Diagnoses Diagnosis Iron deficiency anemia due to chronic blood loss- Primary Iron deficiency anemia secondary to blood loss (chronic) documented in this encounter Advance Directives Documents on File Type Date Recorded Patient Telephone Messenger Expl anation Advanced Directive service a kerri [...]
--- OUTSIDE RECORDS SUMMARY | 2023-05-10 21:46 | External Medical Summary | Summary of Care ---
Author Name Unknown Organization [place] [address] Care Team Providers Care Speech Language Assistant Name Role Phone Alexandra Caceres Primary Care Provider [phone] Reason for Visit * Reason Onset Date Comments Appointment 09/24/2020 Encounter Details Date Type Department Care Team Description 09/24/2020 Telephone Hematology/Oncology [facility] [address] [place] [address] Tono Sanchez MD [address] [place] [address] [phone] Appointment Allergies Active Allergy Reactions Severity Noted [...] Informant: Pharmacy, Reported on 09/23/2020 nystatin (NYSTOP) 358745 UNIT/GM powder Apply topically to affected area [...] 30 mL 3 08/31/2020 Active Dexcom G6 Cotton Grower Device Use as directed. To test [...] pain 01/24/2012 01/17/2017 Genetic Sleep Disorder Research Other*[id number] 05/13/2011 04/07/2016 Obstructive sleep apnea 01/18/2011 12/27/19 [...] or bathing? 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 [address] [place] [address] [phone] 11/30/2020 Office Visit Family Medicine Alexandra Caceres DO [address] [place] [address] [phone] 12/01/2020 Nutrition Services Gastroenterology Melissa Omalley, SAMANTHA [address] [place] [address] [phone] 01/21/2021 Office Visit [facility]enterology [facility] [address] [facility] [address] 09/09/2021 Imaging Radiology Health Maintenance [...] of this encounter Implants Implanted Type Area Rear Load Truck Driver Device Identifier Shelf Expiration Date Model / Serial / Lot Microtech Sure Clip Implanted:Qty: 2 on 06/03/2020 by Janis Hatch DO at OR [facility] Clip N/A: Colon 04/21/2022 [facility]-F-26-2 35-C-R / / [id number] documented as of this encounter Advance Directives Documents on File Type Date Recorded Patient Emergency Medical Service Manager Expl anation Advanced Directive service a [...] Name Relationship Healthcare Agent [facility] navya Communication Syed Bustos Spouse Emergency Contact
--- OUTSIDE RECORDS SUMMARY | 2023-05-10 21:46 | External Medical Summary ---
Author Name Unknown Address [address] [id number] Phone Organization K01:[employer] [facility] [address] [facility] [address] Laboratory Report Ordering Provider Test Date Status OUSMANE BACK 09/24/2020 17:05:00 Final Observation Date Value Abnormality Reference (Units) Status Source 09/24/2020 17:44 NASAL TURBINATE Final : First test for condition of interest 09/24/2020 17:44 NO Final status 09/24/2020 17:44 UNKNOWN Final Employed in a healthcare setting 09/24/2020 17:44 NO Final Patient was hospitalized because of this condition 09/24/2020 17:44 YES Final Admit to ICU for cond of interest 09/24/2020 17:44 NO Final Resides in congregate care setting 09/24/2020 17:44 NO Final Has symptoms related to cond of interest 09/24/2020 17:44 YES Final IF YES, WHAT SYMPTOMS ARE PRES 09/24/2020 17:44 SHORTNESS OF BREATH Final When did you start to experience these symptoms [Date and time] PhenX 09/24/2020 17:44 [id number] Final Adenovirus DNA [Presence] in Unspecified specimen by JANY with probe detection 09/24/2020 18:52 NEGATIVE NEG Final Human coronavirus 229E RNA [Presence] in Unspecified specimen by Probe and target amplification method 09/24/2020 18:52 NEGATIVE NEG Final Human coronavirus HKU1 RNA [Presence] in Unspecified specimen by JANY with probe detection 09/24/2020 18:52 NEGATIVE NEG Final Human coronavirus NL63 RNA [Presence] in Unspecified specimen by Probe & target amplification method 09/24/2020 18:52 NEGATIVE NEG Final Human coronavirus OC43 RNA [Presence] in Unspecified specimen by Probe & target amplification method 09/24/2020 18:52 NEGATIVE NEG Final SARS coronavirus 2 RNA [Presence] in Nasopharynx by JANY with non-probe detection 09/24/2020 18:52 NEGATIVE NEG Final Human metapneumovirus RNA [Presence] in Unspecified specimen by JANY with probe detection 09/24/2020 18:52 NEGATIVE NEG Final Rhinovirus+Enterovirus RNA [Presence] in Unspecified specimen by JANY with probe detection 09/24/2020 18:52 NEGATIVE NEG Final Influenza virus A RNA [Presence] in Nasopharynx by JANY with non-probe detection 09/24/2020 18:52 NEGATIVE NEG Final Influenza virus B RNA [Presence] in Nasopharynx by JANY with non-probe detection 09/24/2020 18:52 NEGATIVE NEG Final Parainfluenza virus 1 RNA [Presence] in Unspecified specimen by Probe and target amplification method 09/24/2020 18:52 NEGATIVE NEG Final Parainfluenza virus 2 RNA [Presence] in Unspecified specimen by Probe & target amplification method 09/24/2020 18:52 NEGATIVE NEG Final Parainfluenza virus 3 RNA [Presence] in Unspecified specimen by Probe & target amplification method 09/24/2020 18:52 NEGATIVE NEG Final Parainfluenza virus 4 RNA [Presence] in Unspecified specimen by JANY with probe detection 09/24/2020 18:52 NEGATIVE NEG Final Respiratory syncytial virus RNA [Presence] in Nasopharynx by JANY with non-probe detection 09/24/2020 18:52 NEGATIVE NEG Final Bordetella parapertussis DNA [Presence] in Naspopharynx by Probe & target amplification method 09/24/2020 18:52 NEGATIVE NEG Final Bordetella pertussis toxin promoter region [Presence] in Nasopharynx by Target amplification with non-probe based detection 09/24/2020 18:52 NEGATIVE NEG Final Chlamydophila pneumoniae DNA [Presence] in Unspecified specimen by Probe and target amplification method 09/24/2020 18:52 NEGATIVE NEG Final Mycoplasma pneumoniae DNA [Presence] in Unspecified specimen by Probe and target amplification method 09/24/2020 18:52 NEGATIVE NEG Final COMMENT 09/24/2020 18:52 Final Performing Location [facility] [address] [facility] [address]
--- OUTSIDE RECORDS SUMMARY | 2023-05-10 21:46 | External Medical Summary ---
Author Name Unknown Address [address] [place] [address] Phone Organization K01:[place] [address] Laboratory Report Ordering Provider Test Date Status OUSMANE BACK 09/24/2020 17:16:00 Final Observation Date Value Abnormality Reference (Units ) Status BNP, Pro-hormone 09/24/2020 18:03 64 0-299 (pg/mL) Final Performing Location [place] [id number]
--- OUTSIDE RECORDS SUMMARY | 2023-05-10 21:46 | External Medical Summary ---
Author Name Unknown Address [address] [place], [place] [id number] Phone Organization K01:[place] [id number] Laboratory Report Ordering Provider Test Date Status OUSMANE BACK 09/24/2020 17:16:00 Final Observation Date Value Abnormality Reference (Units ) Status Body temperature 09/24/2020 17:34 37.0 (degree C) Final pH of Venous blood 09/24/2020 17:34 7.425 7.320-7.430 (units) Final Carbon dioxide [Partial pressure] in Venous blood 09/24/2020 17:34 42.3 40.0-60.0 (mm Hg) Final Oxygen [Partial pressure] in Venous blood 09/24/2020 17:34 52.6 Above high normal 25.0-50.0 (mm Hg) Final Bicarbonate, Venous 09/24/2020 17:34 27.2 23.0-31.0 (mmol/L) Final Base Excess, Venous 09/24/2020 17:34 3.1 Above high normal 0-2.0 (mmol/L) Final Hemoglobin [Mass/volume] in Blood by Oximetry 09/24/2020 17:34 7.8 Below low normal 12.0-15.3 (g/dL) Final Oxyhemoglobin, Venous (FO2HB) 09/24/2020 17:34 82.6 40.0-85.0 (% total Hgb) Final Carboxyhemoglobin 09/24/2020 17:34 1.8 Above high normal 0-1.5 (% total Hgb) Final Performing Location [address] [address]
--- OUTSIDE RECORDS SUMMARY | 2023-05-10 21:46 | External Medical Summary ---
Author Name Unknown Address [address] [facility]. [place] [address] Phone Organization K01[facility] [address] [facility] [address] Laboratory Report Ordering Provider Test Date Status OUSMANE BACK 09/24/2020 17:16:00 Final Observation Date Value Abnormality Reference (Units) Status WBC, Total 09/24/2020 18:22 2.61 Below low normal 4.00-10.80 (K/uL) Final RBC 09/24/2020 18:22 2.90 Below low normal 3.85-5.15 (M/uL) Final Hemoglobin 09/24/2020 18:22 7.5 Below low normal 12.0-15.3 (g/dL) Final HCT 09/24/2020 18:22 26.7 Below low normal 36.0-45.2 (%) Final MCV 09/24/2020 18:22 92.1 81.5-97.5 (fL) Final MCH 09/24/2020 18:22 25.9 Below low normal 27.0-34.0 (pg) Final MCHC 09/24/2020 18:22 28.1 Below low normal 32.0-36.0 (g/dL) Final RDW 09/24/2020 18:22 21.1 Above high normal 11.5-15.5 (%) Final Platelets 09/24/2020 18:22 82 Below low normal 140-400 (K/uL) Final MPV 09/24/2020 18:22 NO RESULT - ABNORMAL PLATELET DISTRIBUTION 6.6-11.1 (fL) Final Nucleated erythrocytes/100 leukocytes [Ratio] in Blood by Automated count 09/24/2020 18:22 0 0 (/100 WBCs) Final Segs 09/24/2020 18:42 54.0 40-75 (%) Final Lymphs % 09/24/2020 18:42 28.4 18-42 (%) Final Monos 09/24/2020 18:42 10.3 1-11 (%) Final Eosinophils 09/24/2020 18:42 6.1 Above high normal 0-6 (%) Final Basos 09/24/2020 18:42 0.8 0-2 (%) Final Immature Granulocyte, Percent 09/24/2020 18:42 0.4 0-2 (%) Final Neutrophils [#/volume] in Blood 09/24/2020 18:42 1.41 Below low normal 1.8-7.7 (K/uL) Final Lymphs, absolute 09/24/2020 18:42 0.74 Below low normal 1.0-4.8 (K/uL) Final Monos, Abs 09/24/2020 18:42 0.27 0.0-1.1 (K/uL) Final Eos, Abs 09/24/2020 18:42 0.16 0.0-0.7 (K/uL) Final Basos, Abs 09/24/2020 18:42 0.02 0.0-0.2 (K/uL) Final Immature Granulocytes, Number 09/24/2020 18:42 0.01 0.0-0.2 (K/uL) Final Anisocytosis [Presence] in Blood by Light microscopy 09/24/2020 18:42 SLIGHT Final Polychromasia [Presence] in Blood by Light microscopy 09/24/2020 18:42 SLIGHT Final Hypochromia [Presence] in Blood by Light microscopy 09/24/2020 18:42 SLIGHT Final Ovalocytes [Presence] in Blood by Light microscopy 09/24/2020 18:42 FEW Final Target cells [Presence] in Blood by Light microscopy 09/24/2020 18:42 FEW Final Dacrocytes [Presence] in Blood by Light microscopy 09/24/2020 18:42 FEW Final Performing Location [facility] [address] [facility] [address]
--- OUTSIDE RECORDS SUMMARY | 2023-05-10 21:46 | External Medical Summary ---
Author Name Unknown Address [address] [place] [address] Phone Organization K01:[place] [address] Laboratory Report Ordering Provider Test Date Status OUSMANE BACK 09/24/2020 17:16:00 Final Observation Date Value Abnormality Reference (Units ) Status Lactic Acid, Whole Blood 09/24/2020 17:34 1.6 0.4-2.0 (mmol/L) Final Performing Location [place] [id number]
--- OUTSIDE RECORDS SUMMARY | 2023-05-10 21:46 | External Medical Summary | Summary of Care ---
Author [place] [address] Care Team Providers Care Forest Fire Fighters Dispatcher Name Role Phone Alexandra Caceres Primary Care Provider [phone] Encounter Details Date Type Department Care Team Description 09/24/2020 Orders Only Hematology/Oncology Treatment, [facility] [address] [place] [address] Tono Sanchez MD [address] [place] [address] Allergies Active Allergy Reactions Severity [...] Informant: Pharmacy, Reported on 09/23/2020 nystatin (NYSTOP) 887871 UNIT/GM powder Apply topically to affected area [...] of less than 7.0% ([facility]) Inject 25 units under the skin once a day 30 mL 3 08/31/2020 Active Dexcom G6 Community Director Device Use as directed. To test [...] pain 01/24/2012 01/17/2017 Genetic Sleep Disorder Research Other*[id number] 05/13/2011 04/07/2016 Obstructive sleep apnea 01/18/2011 12/27/19 [...] or bathing? 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-axle inspector helps 07/15/2020 Because of a physical, menta [...] Office Visit Hematology Oncology Tono Sanchez MD [address] [place] [address] [phone] 10/02/2020 Telemedicine Endocrinology Alberta Duque PA-C [address] [place] [address] 10/06/2020 Office Visit Orthopedics Jayme Benz MD [address] [place] [address] 10/12/2020 Imaging Radiology 10/28/2020 Office Visit Pharmacy [facility] [address] [place], [place] [id number] 11/30/2020 Office Visit Family Medicine Alexandra Caceres, DO [address] [facility] [address] 12/01/2020 Nutrition Services Gastroenterology Melissa Omalley, RDN [address] [place] [address] [phone] 01/21/2021 Office Visit Gastroenterology Lyssa Stout, OUTPATIENT COORDINATOR [address] [facility] [place] [address] [phone] 09/09/2021 Imaging Radiology Health Maintenance Due Date [...] encounter Implants Implanted Type Area Professor Of Environmental Engineering Device Identifier Shelf Expiration Date Model / Serial / Lot Microtech Sure Clip Implanted:Qty: 2 on 06/03/2020 by Janis Hatch DO at OR 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
--- OUTSIDE RECORDS SUMMARY | 2023-05-10 21:46 | External Medical Summary | Summary of Care ---
Author [place] [address] Care Team Providers Care Case Packer And Sealer Name Role Phone NikAlexandra fernandez Daisha MORENO Primary Care Provider Reason for Referral * Evaluate & Treat - Unlimited Visits (Within 3 days (urgent)) Status Reason Specialty Diagnoses / Procedures Referred By Contact Referred To Contact Pending Review Specialty Services Required General Surgery Diagnoses Iron deficiency anemia due to chronic blood loss Tono Sanchez MD [address] [place] [address] Reason for Visit * Reason Onset Date Comments Referral 09/24/2020 surgery Encounter Details Date Type Department Care Team Description 09/24/2020 Telephone Hematology/Oncology Treatment, [address] [address] Tono Sanchez MD [address] [place] [address] [phone] Referral (surgery) Allergies Active Allergy Reactions Severity [...] Informant: Pharmacy, Reported on 09/23/2020 nystatin (NYSTOP) 798275 UNIT/GM powder Apply topically to affected area [...] 7.0% ([facility]) Inject 25 units under the skin once a day 30 mL 3 08/31/2020 Active Dexcom G6 Furniture Maker Device Use as directed. To test [...] pain 01/24/2012 01/17/2017 Genetic Sleep Disorder Research Other*[id number] 05/13/2011 04/07/2016 Obstructive sleep apnea 01/18/2011 12/27/19 [...] or bathing? 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-leather grader helps 07/15/2020 Because of a physical, menta [...] encounter Miscellaneous Notes * Telephone Encounter - Reyes Negron RN - 09/24/2020 11:00 AM EST Called pt to see where she would like to have venofer infusions done. Pt stated [place] because they have a vein finder. Pt then stated that the nurse in [place] said she should have a "thing put in my chest" for IV access. Discussed what a port is and that it is an outpatient surgical procedure.Pt would like a surgical consult to discuss port futher in [facility]. Discussed with Dr Sanchez - Surgical consult ordered. Scheduling: please follow up on surgery referral. Pt would like to be seen at [facility] documented in this encounter Plan of Treatment Upcoming Encounters Date Type Specialty Care Team Description 10/02/2020 Office Visit Hematology Oncology Tono Sanchez MD [address] [place] [address] [phone] 10/02/2020 Telemedicine Endocrinology Alberta Duque PA-C [address] [place] [address] 10/06/2020 Office Visit Orthopedics Jayme Benz MD [address] [place] [address] 10/12/2020 Imaging Radiology 10/28/2020 Office Visit Pharmacy [place] [address] [place] [address] 11/30/2020 Office Visit Family Medicine Alexandra Caceres, [address] [place] [address] 12/01/2020 Nutrition Services Gastroenterology Melissa Omalley RDN [address] [place] [address] [phone] 01/21/2021 Office Visit Gastroenterology Lyssa Stout CRNP [address] [facility] [place] [address] 09/09/2021 Imaging Radiology Scheduled Referrals Name Type [...] of this encounter Implants Implanted Type Area Tank Crewmember Device Identifier Shelf Expiration Date Model / Serial / Lot Microtech Sure Clip Implanted:Qty: 2 on 06/03/2020 by Janis Hatch DO at OR [facility] Clip N/A: Colon 04/21/2022 [facility]-F-26-2 35-C-R / / [id number] documented as of this encounter Visit Diagnoses Diagnosis Iron deficiency anemia due to chronic blood loss- Primary Iron deficiency anemia secondary to blood loss (chronic) documented in this encounter Advance Directives Documents on File Type Date Recorded 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
--- OUTSIDE RECORDS SUMMARY | 2023-05-10 21:46 | External Medical Summary ---
Author Name Unknown Address [facility] [address] [facility] [place] [address] Phone Organization K01:[facility] [address] [id number] Laboratory Report Ordering Provider Test Date Status WONGOUSMANE Ramirez 09/24/2020 17:16:00 Final Observation Date Value Abnormality Reference (Units ) Status BUN 09/24/2020 18:03 10 6-20 (mg/dL) Final Creatinine 09/24/2020 18:03 0.6 0.5-1.0 (mg/ dL) Final E Glom Filt Rate 09/24/2020 18:03 >60.0 >60 Final Performing Location [facility] [address] [facility] [address]
--- OUTSIDE RECORDS SUMMARY | 2023-05-10 21:46 | External Medical Summary ---
Author Name Unknown Address [address] [place] [address] Phone Organization K01:[place] [address] Laboratory Report Ordering Provider Test Date Status OUSMANE BACK 09/24/2020 17:16:00 Final Observation Date Value Abnormality Reference (Units ) Status D-dimer, Quant. 09/24/2020 18:26 0.55 Above high normal <0.50 (ug/ml FEU) Final Performing Location [place] [id number]
--- OUTSIDE RECORDS SUMMARY | 2023-05-10 21:47 | External Medical Summary ---
Author Name Unknown Address [facility] [place] [address] Phone Organization K01:[place] [address] [address] [address] [id number] Laboratory Report Ordering Provider Test Date Status DESMOND GUSMANShae CRESPO 09/23/2020 14:36:00 Final Observation Date Value Abnormality Reference (Units ) Status Alpha-Fetoprotein 09/24/2020 12:07 2.9 0-8.3 (ng/mL) Final Performing Location [address] [address]
--- OUTSIDE RECORDS SUMMARY | 2023-05-10 21:47 | External Medical Summary ---
Author Name Unknown Address [facility] [address] [place] [id number] Phone Organization K01:[facility] [address] [id number] Laboratory Report Ordering Provider Test Date Status DESMOND GUSMANShae CRESPO 09/23/2020 14:36:00 Final Observation Date Value Abnormality Reference (Units ) Status Creatinine 09/23/2020 22:04 0.6 0.5-1.0 (mg/ dL) Final E Glom Filt Rate 09/23/2020 22:04 >60.0 >60 Final Performing Location [facility] [address] [facility] [address]
--- OUTSIDE RECORDS SUMMARY | 2023-05-10 21:47 | External Medical Summary | Summary of Care ---
Author Name Unknown Organization [facility] Address [facility] [place] [address] Care Team Providers Care Newspaper Photojournalist Name Role Phone NikAlexandra fernandez Primary Care Provider Encounter Details Date Type Department Care Team Description 09/24/2020 Orders Only Hematology/Oncology Treatment, [place] [address] [place] [address] Tono Sanchez MD [address] [place] [address] [phone] Iron deficiency anemia due to chronic blood [...] Informant: Pharmacy, Reported on 09/23/2020 nystatin (NYSTOP) [id number] UNIT/GM powder Apply topically to affected area [...] 30 mL 3 08/31/2020 Active Dexcom G6 Heater Planer Operator Device Use as directed. To test [...] pain 01/24/2012 01/17/2017 Genetic Sleep Disorder Research Other*[id number] 05/13/2011 04/07/2016 Obstructive sleep apnea 01/18/2011 12/27/19 [...] 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-home health caregiver helps 07/15/2020 Because of a physical, [...] Progress Notes * Tono Sanchez MD - 09/24/2020 6:45 AM EST Blood workup done on 09/23/2020: - Serum iron 26, TIBC 352, iron saturation 7% - Ferritin level --> 22 - WBC 2100, H&H= 7.2/25, Platelet 76,000. She received intravenous iron in the form of Venofer, last treatment received on 08/28/2020. She has pancytopenia related to underlying cirrhosis of liver and splenomegaly. Would like to give her intravenous iron in the form of Venofer 300 mg once every other week x 6. Please check with her regarding how is she feeling with the hemoglobin level of 7.2. If she has symptomatic anemia, may require blood transfusion support. Would like to check CBCD, ferritin, iron profile every monthly and as needed if she has symptoms ofanemia. documented in this encounter Plan of Treatment Upcoming Encounters Date Type Specialty Care Team Description 09/29/2020 Office Visit Orthopedics Jayme Benz MD [address] [place] [address] 10/02/2020 Office Visit Hematology Oncology Tono Sanchez MD [address] [place] [address] [phone] 10/02/2020 Telemedicine Endocrinology Alberta Duque PA-C [address] [place] [address] 10/12/2020 Imaging Radiology 10/28/2020 Office Visit Pharmacy [facility] [address] [place] [address] 11/30/2020 Office Visit Family Medicine Alexandra Caceres, [address] [place] [address] 12/01/2020 Nutrition Services Gastroenterology Melissa Omalley RDN [address] [place] [address] [phone] 01/21/2021 Office Visit Gastroenterology Lyssa Stout CRNP [address] [facility] [place] [address] 09/09/2021 Imaging Radiology Health Maintenance Due [...] of this encounter Implants Implanted Type Area Order Entry Administrator Device Identifier Shelf Expiration Date Model / Serial / Lot Microtech Sure Clip Implanted:Qty: 2 on 06/03/2020 by Janis Hatch DO at OR [facility] Clip N/A: Colon 04/21/2022 [facility]-F-26-2 35-C-R / / [id number] documented as of this encounter Visit Diagnoses Diagnosis Iron deficiency anemia due to chronic blood loss- Primary Iron deficiency anemia secondary to blood loss (chronic) documented in this encounter Advance Directives Documents on File Type Date Recorded Patient Supply Coordinator Expl anation Advanced Directive service a [...]
--- OUTSIDE RECORDS SUMMARY | 2023-05-10 21:47 | External Medical Summary ---
Author Name Unknown Address [address] [place] [address] Phone Organization K0G:[facility] [address] [facility] [place] [address] Laboratory Report Ordering Provider Test Date Status JACOB CORBETT 09/23/2020 14:42:00 Final Observation Date Value Abnormality Reference (Units) Status WBC, Total 09/23/2020 15:28 2.19 Below low normal 4.00-10.80 (K/uL) Final RBC 09/23/2020 15:28 2.71 Below low normal 3.85-5.15 (M/uL) Final Hemoglobin 09/23/2020 15:28 7.2 Below low normal 12.0-15.3 (g/dL) Final HCT 09/23/2020 15:28 25.1 Below low normal 36.0-45.2 (%) Final MCV 09/23/2020 15:28 92.6 81.5-97.5 (fL) Final MCH 09/23/2020 15:28 26.6 Below low normal 27.0-34.0 (pg) Final MCHC 09/23/2020 15:28 28.7 Below low normal 32.0-36.0 (g/dL) Final RDW 09/23/2020 15:28 21.0 Above high normal 11.5-15.5 (%) Final Platelets 09/23/2020 15:28 76 Below low normal 140-400 (K/uL) Final MPV 09/23/2020 15:28 NO RESULT - ABNORMAL PLATELET DISTRIBUTION 6.6-11.1 (fL) Final Segs 09/23/2020 15:28 53.5 40-75 (%) Final Lymphs % 09/23/2020 15:28 26.0 18-42 (%) Final Monos 09/23/2020 15:28 12.8 Above high normal 1-11 (%) Final Eosinophils 09/23/2020 15:28 6.8 Above high normal 0-6 (%) Final Basos 09/23/2020 15:28 0.9 0-2 (%) Final Neutrophils [#/volume] in Blood 09/23/2020 15:28 1.17 Below low normal 1.8-7.7 (K/uL) Final Lymphs, absolute 09/23/2020 15:28 0.57 Below low normal 1.0-4.8 (K/uL) Final Monos, Abs 09/23/2020 15:28 0.28 0.0-1.1 (K/uL) Final Eos, Abs 09/23/2020 15:28 0.15 0.0-0.7 (K/uL) Final Basos, Abs 09/23/2020 15:28 0.02 0.0-0.2 (K/uL) Final Anisocytosis [Presence] in Blood by Light microscopy 09/23/2020 15:28 SLIGHT Final Polychromasia [Presence] in Blood by Light microscopy 09/23/2020 15:28 SLIGHT Final Hypochromia [Presence] in Blood by Light microscopy 09/23/2020 15:28 SLIGHT Final Ovalocytes [Presence] in Blood by Light microscopy 09/23/2020 15:28 FEW Final Dacrocytes [Presence] in Blood by Light microscopy 09/23/2020 15:28 FEW Final Performing Location [address] [address]
--- OUTSIDE RECORDS SUMMARY | 2023-05-10 21:47 | External Medical Summary | Summary of Care ---
Author Name Unknown Organization [facility] [place] [address] Care Team Providers Care Laborer Plumbing Name Role Phone CarlosjoseAlexandra mcdonough Primary Care Provider [phone] Reason for Referral * Precert (Routine) Status Reason Specialty Diagnoses / Procedures Referred By Contact Referred To Contact Not Required MYKB Precert Radiology Diagnoses Cirrhosis of liver without ascites, unspecified hepatic cirrhosis type (HCC) Procedures MRI LIVER W WO CONTRAST MRI ABDOMEN W WO CONTRAST Lyssa Stout CRNP [address] [facility] [place] [address] Reason for Visit * Reason Comments Follow Up RUQ abd pain, cirrho sis, NG Encounter Details Date Type Department Care Team Description 09/23/2020 Office Visit Gastroenterology, [facility] [address] [place] [address] Lyssa Stout CRNP [address] [facility] [place] [address] [phone] Cirrhosis of liver without ascites, unspecified hepatic cirrhosis type (HCC)* Allergies Active Allergy Reactions Severity Noted Date Comments Adhesive Tape Itching 04/29/2020 Penicillins Rash 02/12/2008 Perflutren Protein A Microsph 2019 Definity-lower back pain documented as of this encounter (statuses as of 09/23/2020) Medications Medication Sig Dispensed Refills Start Date [...] Informant: Pharmacy, Reported on 09/23/2020 nystatin (NYSTOP) 381609 UNIT/GM powder Apply topically to affected area [...] than 7.0% (FORMERLY [facility]) Inject 25 units under the skin once a day 30 mL 3 08/31/2020 Active Dexcom G6 Underwear Trimmer Device Use as directed. To test [...] as of this encounter (statuses as of 09/23/2020) Active Problems Problem Noted Date Uncontrolled type [...] as of this encounter (statuses as of 09/23/2020) Resolved Problems Problem Noted Date Resolved Date [...] pain 01/24/2012 01/17/2017 Genetic Sleep Disorder Research Other*[id number] 05/13/2011 04/07/2016 Obstructive sleep apnea 01/18/2011 12/27/19 [...] as of this encounter (statuses as of 09/23/2020) Immunizations Name Administration Dates Next Due HEP [...] Reading Time Taken Comments Blood Pressure 120/62 09/23/2020 2:11 PM EST Pulse 74 09/23/2020 2:11 PM EST Temperature 36 C (96.8 F) 09/23/2020 2:11 PM EST Respiratory Rate - - Oxygen [...] or bathing? 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-offender employment specialist helps 07/15/2020 Because of a physical, [...] Progress Notes * Lyssa Stout CRNP - 09/23/2020 2:09 PM EST DATE OF SERVICE: 09/23/20 REFERRING PHYSICIAN: Rajwinder Carter DO CC: F/U NG cirrhosis HPI: 09/23/20: Pt voices no concerns today. She [...] Medical History: Diagnosis Date Cerebral palsy ([facility]) 01/24/2012 Chronic constipation Chronic hypoxemic respiratory failure ([facility]) 04/08/2019 Chronic pain 03/27/2012 Cirrhosis of liver ([facility]) 11/20/2017 DDD (degenerative disc [...] than 7.0% ([facility]LY [facility]) 09/26/2013 ICD-10 update of [...] BONE performed by Josh Vazquez MD at [facility] DELIVERY 04/20/1982 COLONOSCOPY 04/21/2009 repeat in 10 years COLONOSCOPY, DIAGNOSTIC (RECTUM) 10/04/2016 normal bx, repeat 10 yrs/[facility] COLONOSCOPY, DIAGNOSTIC (RECTUM) N/A 06/03/2020 internal hemorrhoids/biopsies show adenomatous polyps/recall 5 years/COLONOSCOPY FLEXIBLE PROXIMAL DIAGNOSTIC performed by Janis Hatch DO at [facility] DENTAL SURGERY PROCEDURE NEC wisdom teeth x 4 DILATION AND CURETTAGE (D&C) EGD, FLEXIBLE, DIAGNOSTIC 10/04/2016 gastritis/[facility] EGD, FLEXIBLE, DIAGNOSTIC 01/11/2018 eso varices, retained food, repeat 1 yr/[facility] EGD, FLEXIBLE, DIAGNOSTIC N/A 06/03/2020 severe erosive esophagitis/non-bleeding grade II esophageal varices/gastritis/biopsies show inflammatory changes/repeat 3-4 months/ESOPHAGOGASTRODUODENOSCOPY (EGD), FLEXIBLE, TRANSORAL, DIAGNOSTIC per formed by Janis Hatch DO at [facility] EGD, FLEXIBLE, DIAGNOSTIC 11/27/2019 eso varices, portal hypertensive gastropathy, gastritis / [facility] EGD, FLEXIBLE, DIAGNOSTIC N/A 08/05/2020 large amount of food in stomach/repeat 1.5 years/ESOPHAGOGASTRODUODENOSCOPY (EGD), FLEXIBLE, TRANSORAL, DIAGNOSTIC performed by Janis Hatch DO at OR [facility] PELVIS/HIP JOINT SURGERY NEC teenager aid [...] Outpatient Medications Medication Sig Dispense Refill Nadolol 20 MG Oral Tablet (CORGARD) One daily 90 Tab 1 NovoLOG FlexPen 100 UNIT/ML Subcutaneous Solution Pen-injector (insulin aspart) INJECT 12 UNITS UNDER THE SKIN THREE TIMES A DAY BEFORE MEALS. PLUS COVER MEALS WITH THE FOLLOWING SLIDING SCALE: 80-150 (O UNITS); 151-200 (2 UNITS); 201-250 (4 UNITS); 251-300 (6 UNITS) 15 mL 0 Dexcom G6 Underwear Trimmer Device Use as directed. To test [...] With spacer 16 g 1 nystatin (NYSTOP) 282589 UNIT/GM powder Apply topically to affected area [...] All other findings negative. EXAM: Filed Vitals: 09/23/20 1411 BP: 120/62 Pulse: 74 Temp: 36 C (96.8 F) GENERAL: Well developed and well nourished [...] w NALFD Cirrhosis, varices, anemia, constipation. MELD 8 - Continue Protonix to 40mg daily given indigestion, GERD control, Carafate slurry. Repeat EGD 08/05 to eval healing of erosive esophagitis. - Obtain MELD labs q3-6months. - Last EGD 05/2020 Grad II non bleeding varices, portal HTN, erosive esophagitis. She is on Nadolol 40mg daily, goal HR 55-65 - Last Colonoscopy: 05/2020, recall 5 yrs for hx of TA polyps - Hep A immunity: completed series - Hep B immunity: completed series - HCC screening [id number]: obtain MRI liver to eval R liver lesion, AFP - Encouraged to abstain from ETOH, illicit drugs, APAP no more than 2g daily - Low salt (2g) daily - Advised good control of blood sugars I spent a total of 30 minutes on the date of service in review of patient's record, and previously obtained information in person and appropriate medical visit, discussion and education of plan, withpatient and/or caregiver, placing orders for tests/referral/procedures as medically necessary and documentation of pertinent clinical information in patient's medical records for their visit today. RETURN TO CLINIC: 3 months or sooner Esteban Grayson [facility] Gastroenterology, [facility] documented in this encounter Nursing Notes * Sharon Lincoln LPN - 09/23/2020 2:15 PM EST Chief Complaint Patient presents with Follow Up RUQ abd pain, cirrhosis, NG Pt states no concerns at this time. documented in this encounter Plan of Treatment Upcoming Encounters Date Type Specialty Care Team Description 09/29/2020 Office Visit Orthopedics Jayme Benz MD [address] [place] [address] 10/02/2020 Office Visit Hematology Oncology Tono Sanchez MD [address] [place] [address] [phone] 10/02/2020 Telemedicine Endocrinology Alberta Duque PA-C [address] [place] [address] [phone] 10/12/2020 Imaging Radiology 10/28/2020 Office Visit Pharmacy [facility] [address], [place] [id number] 11/30/2020 Office Visit Family Medicine Alexandra Caceres, [address], [place] [address] 12/01/2020 Nutrition Services Gastroenterology Melissa Omalley RDN [address] [place] [address] [phone] 01/21/2021 Office Visit Gastroenterology Lyssa Stout CRNP [address] [place] [address] 09/09/2021 Imaging Radiology Pending Results Name Type Priority Associated Diagnoses Date /Time ALPHA-FETOPROTEIN TUMOR MARKER Lab Routine Cirrhosis of liver without ascites, unspecified hepatic cirrhosis type (HCC) 09/23/2020 2:36 PM EST BUN Lab Routine Cirrhosis of liver without ascites, unspecified hepatic cirrhosis type (HCC) 09/23/2020 2:36 PM EST CREATININE Lab Routine Cirrhosis of liver without ascites, unspecified hepatic cirrhosis type (HCC) 09/23/2020 2:36 PM EST Scheduled Orders Name Type Priority Associated Diagnoses Orde r Schedule ALPHA-FETOPROTEIN TUMOR MARKER Lab Routine Cirrhosis of liver without ascites, unspecified hepatic cirrhosis type (HCC) Expected: 09/23/2020 (Approximate), Expires: 12/22/2020 BUN Lab Routine Cirrhosis of liver without ascites, unspecified hepatic cirrhosis type (HCC) Expected: 09/23/2020 (Approximate), Expires: 12/22/2020 CREATININE Lab Routine Cirrhosis of liver without ascites, unspecified hepatic cirrhosis type (HCC) Expected: 09/23/2020 (Approximate), Expires: 12/22/2020 MRI LIVER W WO CONTRAST Medical Imaging Routine Cirrhosis of liver without ascites, unspecified hepatic cirrhosis type (HCC) Ordered: 09/23/2020 Health Maintenance Due Date Last Done Comments [...] of this encounter Implants Implanted Type Area Patrol Sergeant Device Identifier Shelf Expiration Date Model / Serial / Lot Microtech Sure Clip Implanted:Qty: 2 on 06/03/2020 by Janis Hatch DO at OR [facility] Clip N/A: Colon 04/21/2022 [facility]-F-26-2 35-C-R / / [id number] documented as of this encounter Visit Diagnoses Diagnosis Cirrhosis of liver without ascites, unspecified hepatic cirrhosis type (HCC)- Primary documented in this encounter Advance Directives Documents on File Type Date Recorded Patient Counter Hop Expl anation Advanced Directive service a kerri [...]
--- OUTSIDE RECORDS SUMMARY | 2023-05-10 21:47 | External Medical Summary ---
Author Name Unknown Address [facility] [place] [address] Phone Organization K01:[place] [address] [place] [id number] Laboratory Report Ordering Provider Test Date Status JACOB CORBETT 09/23/2020 14:42:00 Final Observation Date Value Abnormality Reference (Units ) Status Iron 09/23/2020 22:48 26 Below low normal 33-151 (ug/dL) Final Iron-binding capacity 09/23/2020 22:48 352 250-425 (ug/dL) Final Transferrin Sat % 09/23/2020 22:48 7 Below low normal 15-55 (%) Final Performing Location [facility] [address] [facility] [address]
--- OUTSIDE RECORDS SUMMARY | 2023-05-10 21:47 | External Medical Summary ---
Author Name Unknown Address [facility] [place] [address] Phone Organization K01:[place] [address] [place] [address] Laboratory Report Ordering Provider Test Date Status JACOB CORBETT 09/23/2020 14:42:00 Final Observation Date Value Abnormality Reference (Units ) Status Ferritin 09/23/2020 22:12 22.5 13-150 (ng/mL ) Final Performing Location [place] [id number]
--- OUTSIDE RECORDS SUMMARY | 2023-05-10 21:47 | External Medical Summary ---
Author Name Unknown Address [facility] [place] [address] Phone Organization K01:[place] [address] Laboratory Report Ordering Provider Test Date Status ODESSA GUSMAN 09/23/2020 14:36:00 Final Observation Date Value Abnormality Reference (Units ) Status BUN 09/23/2020 22:04 10 6-20 (mg/dL) Final Performing Location [place] [id number]
--- OUTSIDE RECORDS SUMMARY | 2023-05-10 21:48 | External Medical Summary | Summary of Care ---
Author Name Unknown Organization [place] [address] Care Team Providers Care Protocol Manager Name Role Phone Alexandra Caceres Primary Care Provider Reason for Visit * Reason Onset Date Comments Outpatient Testing 09/21/2020 lab reminder Encounter Details Date Type Department Care Team Description 09/21/2020 Telephone Hematology/Oncology Treatment, [place] [address] [place] [address] Tono Sanchez MD [address] [place] [address] [phone] Outpatient Testing (lab reminder) Allergies Active Allergy Reactions Severity Noted Date Comments Adhesive Tape Itching 04/29/2020 Penicillins Rash 02/12/2008 Perflutren Protein A Microsph 2019 Definity-lower back pain documented as of this encounter (statuses as of 09/22/2020) Medications Medication Sig Dispensed Refills Start Date [...] 120 Vial 11 10/02/2019 Active nystatin (NYSTOP) 723535 UNIT/GM powder Apply topically to affected area [...] mL 3 08/31/2020 Active Dexcom G6 Catalytic Converter Operator Device Use as directed. To test [...] as of this encounter (statuses as of 09/22/2020) Active Problems Problem Noted Date Uncontrolled type [...] as of this encounter (statuses as of 09/22/2020) Resolved Problems Problem Noted Date Resolved Date [...] pain 01/24/2012 01/17/2017 Genetic Sleep Disorder Research Other*[id number] 05/13/2011 04/07/2016 Obstructive sleep apnea 01/18/2011 12/27/19 [...] as of this encounter (statuses as of 09/22/2020) Immunizations Name Administration Dates Next Due HEP [...] Telephone Encounter - Lucero Wang OSA - 09/22/2020 2:18 PM EST Patient scheduled with Dr. Sanchez on 10/02/20. * Telephone Encounter - Cassie Barboza RN - 09/21/2020 11:43 AM EST Patient completed venofer 08/28/20. Per order, patient to have lab work repeated 1 month after venofer completion. Called and spoke to patient. She states that she will go to the lab Monday when she goes to [facility] to see gastro. Scheduling: patient also needs a follow up appt scheduled. Per office note 07/13/20, Zelda Cardona wanted patient to have labs 4 weeks after last IV venofer, follow up with Dr Sanchez or her 5 weeks after last IV venofer. Patient is getting labs 09/23/20. Please schedule follow up for next week. documented in this encounter Plan of Treatment Upcoming Encounters Date Type Specialty Care Team Description 09/23/2020 Office Visit Gastroenterology Lyssa Stout CRNP [address] [facility] [place] [address] [phone] 09/29/2020 Office Visit Orthopedics Jayme Benz MD [address] [place] [address] 10/02/2020 Office Visit Hematology Oncology Tono Sanchez MD [address] [facility] [place] [address] [phone] 10/02/2020 Telemedicine Endocrinology Alberta Duque PA-C [address] [place] [address] 10/28/2020 Office Visit Pharmacy [facility] [address] [place] [address] 11/30/2020 Office Visit Family Medicine Alexandra Caceres, [address] [place], [place] [address] 12/01/2020 Nutrition Services Gastroenterology Melissa Omalley, [place] [address] [place] [address] [phone] 09/09/2021 Imaging Radiology Health Maintenance Due Date [...] of this encounter Implants Implanted Type Area Spinning Frame Cleaner Device Identifier Shelf Expiration Date Model / Serial / Lot Microtech Sure Clip Implanted:Qty: 2 on 06/03/2020 by Janis Hatch DO at OR [facility] Clip N/A: Colon 04/21/2022 [facility]-F-26-2 35-C-R / / [id number] documented as of this encounter Advance Directives Documents on File Type Date Recorded Patient Hr Generalist Expl anation Advanced Directive service a kerri [...]
--- OUTSIDE RECORDS SUMMARY | 2023-05-10 21:48 | External Medical Summary | Summary of Care ---
Author Name Unknown Organization [place] [address] Care Team Providers Care Rn Coronary Care Unit Name Role Phone Alexandra Caceres Primary Care Provider Reason for Visit * Reason Onset Date Comments Outpatient Testing 09/21/2020 lab reminder Encounter Details Date Type Department Care Team Description 09/21/2020 Telephone Hematology/Oncology Treatment, [place] [address] [place] [address] Tono Sanchez MD [address] [place] [address] [phone] Outpatient Testing (lab reminder) Allergies Active Allergy Reactions Severity Noted Date Comments Adhesive Tape Itching 04/29/2020 Penicillins Rash 02/12/2008 Perflutren Protein A Microsph 2019 Definity-lower back pain documented as of this encounter (statuses as of 09/21/2020) Medications Medication Sig Dispensed Refills Start Date [...] 120 Vial 11 10/02/2019 Active nystatin (NYSTOP) 920059 UNIT/GM powder Apply topically to affected area [...] 30 mL 3 08/31/2020 Active Dexcom G6 Conditioner Tumbler Device Use as directed. To test blood [...] as of this encounter (statuses as of 09/21/2020) Active Problems Problem Noted Date Uncontrolled type [...] as of this encounter (statuses as of 09/21/2020) Resolved Problems Problem Noted Date Resolved Date [...] pain 01/24/2012 01/17/2017 Genetic Sleep Disorder Research Other*[id number] 05/13/2011 04/07/2016 Obstructive sleep apnea 01/18/2011 12/27/19 [...] as of this encounter (statuses as of 09/21/2020) Immunizations Name Administration Dates Next Due HEP [...] or bathing? 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-bartender helps 07/15/2020 Because of a physical, menta [...] the lab Monday when she goes to to see gastro. Scheduling: patient also needs [...] Gastroenterology Lyssa Stout CRNP [address] [place] [address] [phone] 09/29/2020 Office Visit Orthopedics Jayme Benz MD [address] [place] [address] 10/02/2020 Telemedicine Endocrinology Alberta Duque PA-C [address] [place] [address] 10/28/2020 Office Visit Pharmacy [facility] [address] [place] [address] 11/30/2020 Office Visit Family Medicine Alexandra Caceres, [address] [place] [address] [phone] 12/01/2020 Nutrition Services Gastroenterology Melissa Omalley, SAMANTHA [address] [place] [address] [phone] 09/09/2021 Imaging Radiology Health Maintenance Due Date [...] of this encounter Implants Implanted Type Area Co Founder Device Identifier Shelf Expiration Date Model / Serial / Lot Microtech Sure Clip Implanted:Qty: 2 on 06/03/2020 by Janis Hatch DO at OR [facility] Clip N/A: Colon 04/21/2022 [facility]-F-26-2 35-C-R / / [id number] documented as of this encounter Advance Directives Documents on File Type Date Recorded Patient Reading Aide Expl anation Advanced Directive service a kerri [...]
--- OUTSIDE RECORDS SUMMARY | 2023-05-10 21:48 | External Medical Summary | Summary of Care ---
Author Name Unknown Organization [place] [address] Care Team Providers Care Rotary Engraver Name Role Phone Alexandra Caceres Primary Care Provider [phone] Reason for Visit * Reason Comments eRx-Medication Refill Encounter Details Date Type Department Care Team Description 09/20/2020 Refill GP2, [facility] [place] [address] [place] [address] Chad Reyes PA-C [address] [place] [address] [phone] Allergies Active Allergy Reactions Severity Noted Date [...] 120 Vial 11 10/02/2019 Active nystatin (NYSTOP) 464384 UNIT/GM powder Apply topically to affected area [...] 30 mL 3 08/31/2020 Active Dexcom G6 Clay Mixer Device Use as directed. To test [...] pain 01/24/2012 01/17/2017 Genetic Sleep Disorder Research Other*[id number] 05/13/2011 04/07/2016 Obstructive sleep apnea 01/18/2011 12/27/19 [...] bathing? 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-adult caregiver helps 07/15/2020 Because of a physical, [...] Telephone Encounter - Kiesha Schmitt LPN - 09/21/2020 12:04 PM EST Pt had telephone visit 09/19/[address] Holland * Telephone Encounter - Alexandra Caceres DO - 09/21/2020 8:06 AM EST I refilled the insulin I am not sure what they need? * Telephone Encounter - Aurea Zuñiga MD - 09/20/2020 1:10 PM EST Refused Prescriptions: Disp Refills NovoLOG FlexPen 100 UNIT/ML Subcutaneous S*15 mL 0 Sig: INJECT 12 UNITS UNDER THE SKIN THREE TIMES A DAY BEFORE MEALS. PLUS COVER MEALS WITH THE FOLLOWING SLIDING SCALE: 80-150 (O UNITS); 151-200 (2 UNITS); 201-250 (4 UNITS); 251-300 (6 UNITS)Refused By: AUREA ZUÑIGA for Refusal: Patient unknown to prescriber documented in this encounter Plan of Treatment Upcoming Encounters Date Type Specialty Care Team Description 09/23/2020 Office Visit Gastroenterology Lyssa Stout CRNP [address] [facility] [place] [address] 09/29/2020 Office Visit Orthopedics Jayme Benz MD [address] [place] [address] 10/02/2020 Telemedicine Endocrinology Alberta Duque PA-C [address] [place] [address] 10/28/2020 Office Visit Pharmacy [facility] [address] [place] [address] 11/30/2020 Office Visit Family Medicine Alexandra Caceres, [address] [place] [address] 12/01/2020 Nutrition Services Gastroenterology Melissa Omalley RDN [address] [place] [address] 09/09/2021 Imaging Radiology Health Maintenance Due Date [...] of this encounter Implants Implanted Type Area Underwater Trapper Device Identifier Shelf Expiration Date Model / Serial / Lot Microtech Sure Clip Implanted:Qty: 2 on 06/03/2020 by Janis Hatch DO at OR [facility] Clip N/A: Colon 04/21/2022 [facility]-F-26-2 35-C-R / / [id number] documented as of this encounter Advance Directives Documents on File Type Date Recorded Patient Gas Truck Driver Expl anation Advanced Directive service a [...]
--- OUTSIDE RECORDS SUMMARY | 2023-05-10 21:49 | External Medical Summary | Summary of Care ---
Author Name Unknown Organization [facility] Address [place] [address] Care Team Providers Care Palletiser Operator Name Role Phone Alexandra Caceres DO Primary Care Provider Encounter Details Date Type Department Care Team Description 09/18/2020 Telephone [facility] [address], [place] [id number] Alexandra Caceres DO [address], [place] [id number] Allergies Active Allergy Reactions Severity Noted Date Comments Adhesive Tape Itching 04/29/2020 Penicillins Rash 02/12/2008 Perflutren Protein A Microsph 2019 Definity-lower back pain documented as of this encounter (statuses as of 09/18/2020) Medications Medication Sig Dispensed Refills Start Date [...] 120 Vial 11 10/02/2019 Active nystatin (NYSTOP) 671120 UNIT/GM powder Apply topically to affected area [...] before breakfast. 90 Cap 3 05/04/2020 Active nadolol (CORGARD) 20 MG Tablet TAKE 2 TABLETS BY MOUTH ONCE DAILY 180 Tab 1 05/12/2020 Active escitalopram (LEXAPRO) 20 MG TabletIndications:Rec urrent [...] 30 mL 3 08/31/2020 Active Dexcom G6 Vp Design Device Use as directed. To test blood [...] (6 UNITS) 15 mL 0 09/17/2020 Active documented as of this encounter (statuses as of 09/18/2020) Active Problems Problem Noted Date Uncontrolled type 2 diabetes mellitus wi hyperglycemia 07/15/2020 Acute blood loss anemia 07/06/2020 [...] as of this encounter (statuses as of 09/18/2020) Resolved Problems Problem Noted Date Resolved Date [...] pain 01/24/2012 01/17/2017 Genetic Sleep Disorder Research Other*[id number] 05/13/2011 04/07/2016 Obstructive sleep apnea 01/18/2011 12/27/19 [...] as of this encounter (statuses as of 09/18/2020) Immunizations Name Administration Dates Next Due HEP [...] or bathing? 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-sausage inspector helps 07/15/2020 Because of a physical, [...] encounter Miscellaneous Notes * Telephone Encounter - Abbie Martinez OSA - 09/18/2020 2:17 PM EST Reason for patient's call: Patient returning call and made aware of message below. Patient dizziness continues and has shortness of breath, no acute telephone or video appointment is showing. Call placed to triage [facility] and was advised to reach out to office concerning appointment. Caller was transferred to [facility] at the nurse line. * Telephone Encounter - Alexandra Caceres DO - 09/18/2020 2:01 PM EST Please set up video or phone visit to discuss * Telephone Encounter - Alexandra Caceres DO - 09/18/2020 2:01 PM EST ----- Message from Radha Vargas RN sent at 09/18/2020 10:24 AM EST ----- Pt triaged for dizziness that has worsened over last few days. Pt taking "water pill" as prescribed, reported one of her diabetic medications is, "too expensive". Message to be sent to provider, asking for further advice, office to please notify pt of any provider advice. documented in this encounter Plan of Treatment Upcoming Encounters Date Type Specialty Care Team Description 09/23/2020 Office Visit Gastroenterology Lyssa Stout CRNP [address] [facility] [place] [address] [phone] 09/29/2020 Office Visit Orthopedics Jayme Benz MD [address] [place] [address] 10/02/2020 Telemedicine Endocrinology Alberta Duque PA-C [address] [place] [address] 10/28/2020 Office Visit Pharmacy [facility] [address] [place] [address] 11/30/2020 Office Visit Family Medicine Alexandra Caceres DO [address], [place] [phone] 12/01/2020 Nutrition Services Gastroenterology Melissa Omalley, [place] [address] [place] [address] [phone] 09/09/2021 Imaging Radiology Health Maintenance Due Date [...] this encounter Implants Implanted Type Area Nuclear Chemistry Technician Device Identifier Shelf Expiration Date Model / Serial / Lot Microtech Sure Clip Implanted:Qty: 2 on 06/03/2020 by Janis Hatch DO at OR H Clip N/A: Colon 04/21/2022 [facility]-F-26-2 35-C-R / / [id number] documented as of this encounter Advance Directives Documents on File Type Date Recorded Patient Inspecting Machine Adjuster Expl anation Advanced Directive service a [...] [facility] p Communication Syed Juli Spouse Emergency Contact
--- OUTSIDE RECORDS SUMMARY | 2023-05-10 21:49 | External Medical Summary | Summary of Care ---
Author Name Unknown Organization [facility] Address [place] [address] Care Team Providers Care Labor Representative Name Role Phone Alexandra Caceres DO Primary Care Provider Encounter Details Date Type Department Care Team Description 09/18/2020 Telephone [facility] [address] [place], [place] [id number] Alexandra Caceres DO [address], [place] [phone] Allergies Active Allergy Reactions Severity Noted Date [...] 120 Vial 11 10/02/2019 Active nystatin (NYSTOP) 315466 UNIT/GM powder Apply topically to affected area [...] 30 mL 3 08/31/2020 Active Dexcom G6 Trimming Assembler Device Use as directed. To test [...] pain 01/24/2012 01/17/2017 Genetic Sleep Disorder Research Other*[id number] 05/13/2011 04/07/2016 Obstructive sleep apnea 01/18/2011 12/27/19 [...] bathing? 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 Call placed to triage [facility] and was advised to reach out to office concerning appointment. Caller was transferred to [facility] at the nurse line. * Telephone Encounter [...] [address] [facility] [place] [address] [phone] 09/29/2020 Office Visit Orthopedics Jayme Benz MD [address] [place] [address] 10/02/2020 Telemedicine Endocrinology Alberta Duque PA-C [address] [place] [address] 10/28/2020 Office Visit [facility] [address] [place] [address] 11/30/2020 Office Visit Family Medicine Alexandra Caceres DO [address], [place] [phone] 12/01/2020 Nutrition Services Gastroenterology Melissa Omalley, [place] [address] [place] [address] [phone] 09/09/2021 Imaging Radiology Health Maintenance Due Date [...] of this encounter Implants Implanted Type Area Pc Support Specialist Device Identifier Shelf Expiration Date Model / Serial / Lot Microtech Sure Clip Implanted:Qty: 2 on 06/03/2020 by Janis Hatch DO at OR H Clip N/A: Colon 04/21/2022 [facility]-F-26-2 35-C-R / / [id number] documented as of this encounter Advance Directives Documents on File Type Date Recorded Patient Window Cutter Expl anation Advanced Directive service a [...] Healthcare Agent [facility] p Communication Syed Juli Spouse Emergency Contact
--- OUTSIDE RECORDS SUMMARY | 2023-05-10 21:49 | External Medical Summary | Summary of Care ---
Author Name Unknown Organization [facility] Address [place] [address] Care Team Providers Care Hadoop Java Developer Name Role Phone Alexandra Caceres Primary Care Provider Reason for Visit * Reason Comments Dizzy Weakness* Encounter Details Date Type Department Care Team Description 09/19/2020 Office Visit Family Medicine [facility] [address] [facility] [place] [address] Kyle Juárez MD [address] [place] [address] [place] [id number] HTN, goal below 140/90*; Pancytopenia (HCC); DM type 2 with diabetic peripheral neuropathy (HCC) Allergies Active Allergy Reactions Severity Noted Date Comments Adhesive Tape Itching 04/29/2020 Penicillins Rash 02/12/2008 Perflutren Protein A Microsph 2019 Definity-lower back pain documented as of this encounter (statuses as of 09/19/2020) Medications Medication Sig Dispensed Refills Start Date [...] 120 Vial 11 10/02/2019 Active nystatin (NYSTOP) 073637 UNIT/GM powder Apply topically to affected area [...] 2 05/21/2020 Active traZODone (DESYREL) 50 MG TabletIndications: [...] 30 mL 3 08/31/2020 Active Dexcom G6 High School Director Device Use as directed. To test [...] One daily 90 Tab 1 09/19/2020 Active nadolol (CORGARD) 20 MG Tablet TAKE 2 TABLETS BY MOUTH ONCE DAILY 180 Tab 1 05/12/2020 09/19/2020 Discontinue d(Refill) documented as of this encounter (statuses as of 09/19/2020) Active Problems Problem Noted Date Uncontrolled type [...] as of this encounter (statuses as of 09/19/2020) Resolved Problems Problem Noted Date Resolved Date [...] pain 01/24/2012 01/17/2017 Genetic Sleep Disorder Research Other*[id number] 05/13/2011 04/07/2016 Obstructive sleep apnea 01/18/2011 12/27/19 [...] as of this encounter (statuses as of 09/19/2020) Immunizations Name Administration Dates Next Due HEP [...] or bathing? 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-paper final inspector helps 07/15/2020 Because of a physical, [...] as of this encounter Progress Notes * Kyle Juárez MD - 09/19/2020 9:32 AM EST After connecting to the patient via telephone, the patient was identified by name and date of . Patient was then informed that this was a telephone call only visit. The patient agreed to participate. Visit Disposition: Routine follow-up Total call duration was 8 minutes. "every time I sit up I get dizzy like from the side of the bed and it lasts 2 minutes." Her Dexcom keeps falling off she she is not sure what her sugars are. Past Medical History: Diagnosis Date Cerebral palsy [...] 10/04/2016 normal bx, repeat 10 yrs/[facility] COLONOSCOPY, DIAGNOSTIC (RECTUM) N/A 06/03/2020 internal hemorrhoids/biopsies show adenomatous polyps/recall 5 years/COLONOSCOPY FLEXIBLE PROXIMAL DIAGNOSTIC performed by Janis Hatch DO at OR [facility] DENTAL SURGERY PROCEDURE NEC wisdom teeth x 4 DILATION AND CURETTAGE (D&C) EGD, FLEXIBLE, DIAGNOSTIC 10/04/2016 gastritis/[facility] EGD, FLEXIBLE, DIAGNOSTIC 01/11/2018 eso varices, retained food, repeat 1 yr/[facility] EGD, FLEXIBLE, DIAGNOSTIC N/A 06/03/2020 severe erosive esophagitis/non-bleeding grade II esophageal varices/gastritis/biopsies show inflammatory changes/repeat 3-4 months/ESOPHAGOGASTRODUODENOSCOPY (EGD), FLEXIBLE, TRANSORAL, DIAGNOSTIC per formed by Janis Hatch DO at [facility] EGD, FLEXIBLE, DIAGNOSTIC 11/27/2019 eso varices, portal hypertensive gastropathy, gastritis / [facility] EGD, FLEXIBLE, DIAGNOSTIC N/A 08/05/2020 large amount of food in stomach/repeat 1.5 years/ESOPHAGOGASTRODUODENOSCOPY (EGD), FLEXIBLE, TRANSORAL, DIAGNOSTIC performed by Janis Hatch DO at OR [facility] PELVIS/HIP JOINT SURGERY NEC teenager aid in walking REPAIR/GRAFT ACHILLES TENDON age 40 aid in walking Review of patient's allergies indicates: Allergen Reactions Adhesive Tape Itching Pcn [Penicillins] Rash Perflutren Protein A Microsph Definity-lower back pain Social History Socioeconomic History Marital status: Spouse [...] file Social History Narrative 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 To test [...] With spacer 16 g 1 nystatin (NYSTOP) 469755 UNIT/GM powder Apply topically to affected area [...] Tab by mouth daily. 1 Tab 0 CBC Results: CBC/DIFF Lucio Dt/Tm Resulted Value Status WBC (K/uL) 08/21/20 4:35P 08/21/20 2.70* F RBC (M/uL) 08/21/20 4:35P 08/21/20 2.87* F HGB (g/dL) 08/21/20 4:35P 08/21/20 7.9* F HCT (%) 08/21/20 4:35P 08/21/20 26.8* F MCV (fL) 08/21/20 4:35P 08/21/20 93.4 F MCH (pg) 08/21/20 4:35P 08/21/20 27.5 F MCHC (g/dL) 08/21/20 4:35P 08/21/20 29.5* F RDW (%) 08/21/20 4:35P 08/21/20 21.8* F PLATELET COUNT (K/uL) 08/21/20 4:35P 08/21/20 82* F MPV (fL) 08/21/20 4:35P 08/21/20 F Value: NO RESULT - ABNORMAL PLATELET DISTRIBUTION NRBC'S (/100 WBCs) 08/21/20 4:35P 08/21/20 0 F NEUTS (%) 08/21/20 4:35P 08/21/20 55.6 F LYMPHS (%) 08/21/20 4:35P 08/21/20 25.2 F MONOS (%) 08/21/20 4:35P 08/21/20 11.9* F EOS (%) 08/21/20 4:35P 08/21/20 5.9 F BASOS (%) 08/21/20 4:35P 08/21/20 0.7 F IMMATURE GRANULOCYTE (%) 08/21/20 4:35P 08/21/20 0.7 F ABS. NEUTS (K/uL) 08/21/20 4:35P 08/21/20 1.50* F ABS. LYMPHS (K/uL) 08/21/20 4:35P 08/21/20 0.68* F ABS. MONOS (K/uL) 08/21/20 4:35P 08/21/20 0.32 F ABS. EOS (K/uL) 08/21/20 4:35P 08/21/20 0.16 F ABS. BASOS (K/uL) 08/21/20 4:35P 08/21/20 0.02 F ABSOLUTE IMMATURE GRANULOCYTES (K/uL) 08/21/20 4:35P 08/21/20 0.02 F ANISOCYTOSIS ( ) 08/21/20 4:35P 08/21/20 MODERATE F POLYCHROMASIA ( ) 08/21/20 4:35P 08/21/20 SLIGHT F HYPOCHROMIA ( ) 08/21/20 4:35P 08/21/20 SLIGHT F OVALOCYTES ( ) 08/21/20 4:35P 08/21/20 MODERATE F TEARDROP CELLS ( ) 08/21/20 4:35P 08/21/20 FEW F BASIC METAB PANEL, BMP Lucio Dt/Tm Resulted Value Status BUN (mg/dL) 08/14/20 6:53P 08/14/20 9 F CREATININE (mg/dL) 08/14/20 6:53P 08/14/20 0.6 F E GLOM FILT RATE ( ) 08/14/20 6:53P 08/14/20 >60.0 F SODIUM (mmol/L) 08/14/20 6:53P 08/14/20 144 F POTASSIUM (mmol/L) 08/14/20 6:53P 08/14/20 4.0 F CHLORIDE (mmol/L) 08/14/20 6:53P 08/14/20 108* F CO2 (mmol/L) 08/14/20 6:53P 08/14/20 27 F ANION GAP (mmol/L) 08/14/20 6:53P 08/14/20 9 F GLUCOSE (mg/dL) 08/14/20 6:53P 08/14/20 176* F CALCIUM (mg/dL) 08/14/20 6:53P 08/14/20 8.7 F HEMOGLOBIN, A1C(%) Lucio Dt/Tm Resulted Value Status 07/06/20 5:24A 07/06/20 9.9* FINAL O: A: HTN, goal below 140/90 (Primary) - Nadolol 20 MG Oral Tablet (CORGARD); One daily Cut from one daily Pancytopenia (HCC) DM type 2 with diabetic peripheral neuropathy (HCC) documented in this encounter Plan of Treatment Upcoming Encounters Date Type Specialty Care Team Description 09/23/2020 Office Visit Gastroenterology Lyssa Stout CRNP [address] [facility] [place] [address] 09/29/2020 Office Visit Orthopedics Jayme Benz MD [address] [place] [address] 10/02/2020 Telemedicine Endocrinology Alberta Duque PA-C [address] [place] [address] 10/28/2020 Office Visit Pharmacy [facility] [address] [place] [address] 11/30/2020 Office Visit Family Medicine Alexandra Caceres DO [address] [place] [address] 12/01/2020 Nutrition Services Gastroenterology Melissa Omalley RDN [address] [place] [address] [phone] 09/09/2021 Imaging Radiology Health Maintenance Due Date [...] of this encounter Implants Implanted Type Area Tire Repairman Device Identifier Shelf Expiration Date Model / Serial / Lot Microtech Sure Clip Implanted:Qty: 2 on 06/03/2020 by Janis Hatch DO at OR [facility] Clip N/A: Colon 04/21/2022 [facility]-F-26-2 35-C-R / / [id number] documented as of this encounter Visit Diagnoses Diagnosis HTN, goal below 140/90- Primary Unspecified essential hypertension Pancytopenia (HCC) Other pancytopenia DM type 2 with diabetic peripheral neuropathy (HCC) Type II or unspecified type diabetes mellitus with neurological manifestations, not stated as uncontrolled documented in this encounter Advance Directives Documents on File Type Date Recorded Patient Solution Consultant Expl anation Advanced Directive service a [...]
--- OUTSIDE RECORDS SUMMARY | 2023-05-10 21:49 | External Medical Summary | Summary of Care ---
Author Name Unknown [place] [address] Care Team Providers Care Wrapper Operator Name Role Phone Alexandra Caceres Primary Care Provider [phone] Reason for Visit * Reason Comments eRx-Medication Refill Encounter Details Date Type Department Care Team Description 09/20/2020 Refill GP2, [facility] [address] [place] [address] Chad Reyes PA-C [address] [place] [address] [phone] Allergies Active Allergy Reactions Severity Noted Date [...] 120 Vial 11 10/02/2019 Active nystatin (NYSTOP) 160194 UNIT/GM powder Apply topically to affected area [...] 30 mL 3 08/31/2020 Active Dexcom G6 Ambulance Assistant Device Use as directed. To test [...] pain 01/24/2012 01/17/2017 Genetic Sleep Disorder Research Other*[id number] 05/13/2011 04/07/2016 Obstructive sleep apnea 01/18/2011 12/27/19 [...] or bathing? 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-perl software engineer helps 07/15/2020 Because of a physical, [...] they need? * Telephone Encounter - Aurea Ferris MD - 09/20/2020 1:10 PM EST Refused Prescriptions: Disp Refills NovoLOG FlexPen 100 UNIT/ML Subcutaneous S*15 mL 0 Sig: INJECT 12 UNITS UNDER THE SKIN THREE TIMES A DAY BEFORE MEALS. PLUS COVER MEALS WITH THE FOLLOWING SLIDING SCALE: 80-150 (O UNITS); 151-200 (2 UNITS); 201-250 (4 UNITS); 251-300 (6 UNITS)Refused By: AUREA FERRIS for Refusal: Patient unknown to prescriber documented in this encounter Plan of Treatment Upcoming Encounters Date Type Specialty Care Team Description 09/23/2020 Office Visit Gastroenterology Lyssa Stout CRNP [address] [facility] [place] [address] [phone] 09/29/2020 Office Visit Orthopedics Jayme Benz MD [address] [place] [address] 10/02/2020 Telemedicine Endocrinology Alberta Duque PA-C [address] [place] [address] 10/28/2020 Office Visit Pharmacy [facility] [address] [place] [address] 11/30/2020 Office Visit Family Medicine Alexandra Caceres, [address] [place] [address] 12/01/2020 Nutrition Services Gastroenterology Melissa Omalley, [place] [address] [place] [address] [phone] 09/09/2021 Imaging Radiology Health Maintenance Due Date [...] of this encounter Implants Implanted Type Area Resident Care Associate Device Identifier Shelf Expiration Date Model / Serial / Lot Microtech Sure Clip Implanted:Qty: 2 on 06/03/2020 by Janis Hatch DO at OR [facility] Clip N/A: Colon 04/21/2022 [facility]-F-26-2 35-C-R / / [id number] documented as of this encounter Advance Directives Documents on File Type Date Recorded Patient Patient Financial Services Coordinator Expl anation Advanced Directive service a [...]
--- OUTSIDE RECORDS SUMMARY | 2023-05-10 21:49 | External Medical Summary | Summary of Care ---
Author Name Unknown Organization [facility] Address [place] [address] Care Team Providers Care Nocturnist Name Role Phone Alexandra Caceres DO Primary Care Provider Encounter Details Date Type Department Care Team Description 09/18/2020 Telephone [facility] [address] [place], [place] [id number] Alexandra Caceres DO [address] [place], [place] [address] Allergies Active Allergy Reactions Severity Noted Date [...] 120 Vial 11 10/02/2019 Active nystatin (NYSTOP) 967512 UNIT/GM powder Apply topically to affected area [...] 30 mL 3 08/31/2020 Active Dexcom G6 Industrial Maintenance Technician Device Use as directed. To test [...] pain 01/24/2012 01/17/2017 Genetic Sleep Disorder Research Other*[id number] 05/13/2011 04/07/2016 Obstructive sleep apnea 01/18/2011 12/27/19 [...] or bathing? 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-resident caregiver helps 07/15/2020 Because of a physical, [...] Telephone Encounter - Keyonna Barillas LPN - 09/18/2020 2:37 PM EST Called and spoke to patient. Patient c/o dizziness. Patient states that breathing is not different on her normal. Patient statesshe is unable to take BP or vitals signs. Offered a virtual visit for the weekend clinic as Dr. Caceres's advise below. Advised patient if symptoms worsen before her appointment proceed to ER. Patient verbalizing understanding of given instruction and will comply. Warm transfer to sched. * Telephone Encounter - Abbie Martinez OSA - 09/18/2020 2:17 PM EST Reason for patient's call: Patient returning call and made aware of message below. Patient dizziness continues and has shortness of breath, no acute telephone or video appointment is showing. Call placed to triage [facility] and was advised to reach out to office concerning appointment. Caller was transferred to [facility] at the nurse line. * Telephone Encounter [...] Encounters Date Type Specialty Care Team Description 09/19/2020 Office Visit Family Medicine Kyle Juárez MD [address] [place] [address] [place] [address] [phone] 09/23/2020 Office Visit Gastroenterology Lyssa Stout CRNP [address] [facility] [place] [address] [phone] 09/29/2020 Office Visit Orthopedics Jayme Benz MD [address] [place], [place] [address] 10/02/2020 Telemedicine Endocrinology Alberta Duque PA-C [address] [place] [address] [phone] 10/28/2020 Office Visit Pharmacy [place] [address] [place] [address] [phone] 11/30/2020 Office Visit Family Medicine Alexandra Caceres DO [address] [place] [address] [phone] 12/01/2020 Nutrition Services Gastroenterology Melissa Omalley, RDN [...] this encounter Implants Implanted Type Area Director Investment Banking Device Identifier Shelf Expiration Date Model / Serial / Lot Microtech Sure Clip Implanted:Qty: 2 on 06/03/2020 by Janis Hatch DO at OR [facility] Clip N/A: Colon 04/21/2022 [facility]-F-26-2 35-C-R / / [id number] documented as of this encounter Advance Directives Documents on File Type Date Recorded Patient Cigarette Vendor Expl anation Advanced Directive service a kerri [...]
--- OUTSIDE RECORDS SUMMARY | 2023-05-10 21:49 | External Medical Summary | Summary of Care ---
Author Name Unknown Organization [facility] Address [place] [address] Care Team Providers Care Tire Builder Heavy Service Name Role Phone Alexandra Caceres DO Primary Care Provider [phone] Encounter Details Date Type Department Care Team Description 09/18/2020 Telephone [facility] [address] [place], [place] [id number] Alexandra Caceres DO [address] [place], [place] [address] Allergies Active Allergy Reactions Severity Noted Date [...] 120 Vial 11 10/02/2019 Active nystatin (NYSTOP) 691139 UNIT/GM powder Apply topically to affected area [...] 30 mL 3 08/31/2020 Active Dexcom G6 Lamp Cleaner Device Use as directed. To test [...] pain 01/24/2012 01/17/2017 Genetic Sleep Disorder Research Other*[id number] 05/13/2011 04/07/2016 Obstructive sleep apnea 01/18/2011 12/27/19 [...] or bathing? 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-after school caregiver helps 07/15/2020 Because of a physical, [...] CRNP [address] [facility] [place] [address] [phone] 09/29/2020 Office Visit Orthopedics Jayme Benz MD [address] [place] [address] 10/02/2020 Telemedicine Endocrinology Alberta Duque PA-C [address] [place] [address] 10/28/2020 Office Visit Pharmacy [facility] [address] [place] [address] 11/30/2020 Office Visit Family Medicine Alexandra Caceres DO [address] [place] [address] [phone] 12/01/2020 Nutrition Services Gastroenterology Melissa Omalley, [place] [address] [place] [address] [phone] 09/09/2021 Imaging Radiology Health Maintenance Due Date [...] this encounter Implants Implanted Type Area Clinical Program Director Device Identifier Shelf Expiration Date Model / Serial / Lot Microtech Sure Clip Implanted:Qty: 2 on 06/03/2020 by Janis Hatch DO at OR [facility] Clip N/A: Colon 04/21/2022 [facility]-F-26-2 35-C-R / / [id number] documented as of this encounter Advance Directives Documents on File Type Date Recorded Patient Office Analyst Expl anation Advanced Directive service a [...] on File Name Relationship [facility] Syed Bustos Spouse Emergency Contact
--- OUTSIDE RECORDS SUMMARY | 2023-05-10 21:50 | External Medical Summary | Summary of Care ---
Author Name Unknown Organization [facility] Address [facility] [place] [address] Care Team Providers Care Manager Business Process Name Role Phone NikAlexandra fernandez Daisha MORENO Primary Care Provider [phone] Reason for Visit * Reason Onset Date Comments Advice 09/14/2020 Encounter Details Date Type Department Care Team Description 09/14/2020 Telephone Pharmacy, [place] [address] [place] [address] [facility] [address] [place] [address] [phone] Advice Allergies Active Allergy Reactions Severity Noted Date Comments Adhesive Tape Itching 04/29/2020 Penicillins Rash 02/12/2008 Perflutren Protein A Microsph 2019 Definity-lower back pain documented as of this encounter (statuses as of 09/14/2020) Medications Medication Sig Dispensed Refills Start Date [...] 120 Vial 11 10/02/2019 Active nystatin (NYSTOP) 307384 UNIT/GM powder Apply topically to affected area [...] 1 05/12/2020 Active escitalopram (LEXAPRO) 20 MG TabletIndications: Recurrent [...] a day 30 mL 3 08/31/2020 Active NovoLOG FlexPen 100 UNIT/ML Subcutaneous Solution Pen-injector (insulin aspart) INJECT 12 UNITS UNDER THE SKIN THREE TIMES A DAY BEFORE MEALS. PLUS COVER MEALS WITH THE FOLLOWING SLIDING SCALE: 80-150 (O UNITS); 151-200 (2 UNITS); 201-250 (4 UNITS); 251-300 (6 UNITS) 15 mL 0 09/14/2020 Active Dexcom G6 Ferry Captain Device Use as directed. To test [...] Dx E11.9 1 Each 3 09/14/2020 Active Continuous Blood Gluc Ferry Captain (FREESTYLE XOCHITL 2 READER SYSTM) KORTNEY Freestyle Xochitl 2 14-day Ferry Captain (716914) 1 Package 0 05/26/2020 1 Discontinued FreeStyle Xochitl 2 Sensor Systm Use to test blood sugars 4 times a day Dx E11.9 6 Each 3 09/08/2020 1 Discontinued documented as of this encounter (statuses as of 09/14/2020) Active Problems Problem Noted Date Uncontrolled type [...] as of this encounter (statuses as of 09/14/2020) Resolved Problems Problem Noted Date Resolved Date [...] pain 01/24/2012 01/17/2017 Genetic Sleep Disorder Research Other*[id number] 05/13/2011 04/07/2016 Obstructive sleep apnea 01/18/2011 12/27/19 [...] as of this encounter (statuses as of 09/14/2020) Immunizations Name Administration Dates Next Due HEP [...] or bathing? 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-storm door maker helps 07/15/2020 Because of a physical, [...] Notes * Telephone Encounter - Indira Hudson, [facility] - 09/14/2020 3:00 PM EST Received following [...] recommended via package insert, xochitl sales representative graphic art says it can be done if the issue is sticking or ability to apply the patch. Patient prefers at this time to try Dexcom so sent prescriptions to the pharmacy for Dexcom G6 (client care coordinator, transmitter, sensors). Patient's sister uses Dexcom so patient reports will have her help herwith it. They will contact clinic with any issues. Will follow-up as previously scheduled. Indira Hudson [facility], Pharm D, BCACP Clinical Pharmacist 09/14/20 2:29 PM documented in this encounter Plan of Treatment Upcoming Encounters Date Type Specialty Care Team Description 09/23/2020 Office Visit Gastroenterology Lyssa Stout CRNP [address] [facility] [place] [address] [phone] 09/29/2020 Office Visit Orthopedics Jayme Benz MD [address] [place] [address] 10/02/2020 Telemedicine Endocrinology Alberta Duque PA-C [address] [place], [place] [address] 10/28/2020 Office Visit Pharmacy Artemio Candel[facility] [address] [place] [address] [phone] 11/30/2020 Office Visit Family Medicine Alexandra Caceres DO [address] [place] [address] [phone] 12/01/2020 Nutrition Services Gastroenterology Melissa Omalley, RDN [address] [place] [address] [phone] 09/09/2021 Imaging Radiology Health Maintenance Due Date [...] of this encounter Implants Implanted Type Area Mutual Fund Analyst Device Identifier Shelf Expiration Date Model / Serial / Lot Microtech Sure Clip Implanted:Qty: 2 on 06/03/2020 by Hatch, Marten B, DO at OR [facility] Clip N/A: Colon 04/21/2022 [facility]-F-26-2 35-C-R / / [id number] documented as of this encounter Advance Directives Documents on File Type Date Recorded Patient Gas Plant Operator Expl 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 Agents on File Name Relationship Healthcare Agent [facility] Communication Syed Bustos Spouse Emergency Contact
--- OUTSIDE RECORDS SUMMARY | 2023-05-10 21:50 | External Medical Summary | Summary of Care ---
Author Name Unknown Organization [facility] Address [place] [address] Care Team Providers Care Regional Construction Manager Name Role Phone Alexandra Caceres DO Primary Care Provider [phone] Reason for Visit * Reason Onset Date Comments Advice 09/12/2020 Status Check 09/12/2020 Encounter Details Date Type Department Care Team Description 09/12/2020 Telephone [facility] [address], [place] [id number] Alexandra Caceres DO [address] [place] [address] [phone] Advice; Status Check Allergies Active Allergy Reactions [...] 120 Vial 11 10/02/2019 Active nystatin (NYSTOP) 694996 UNIT/GM powder Apply topically to affected area [...] a day 30 mL 3 08/31/2020 Active Continuous Blood Gluc Adult Live In Caregiver (FREESTYLE XOCHITL 2 READER SYSTM) KORTNEY Freestyle Xochitl 2 14-day Adult Live In Caregiver ([id number]) 1 Package 0 05/26/2020 1 Discontinued FreeStyle [...] pain 01/24/2012 01/17/2017 Genetic Sleep Disorder Research Other*[id number] 05/13/2011 04/07/2016 Obstructive sleep apnea 01/18/2011 12/27/19 [...] or bathing? 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 Will contact patient. Indira Hudson [facility], Pharm D, BCACP Clinical Pharmacist 09/14/20 3:00 PM * Telephone Encounter - Michaelle Lindquist LPN - 09/14/2020 1:35 PM EST Can you advise. * Telephone Encounter - Rajni Ng OSA - 09/14/2020 1:28 PM EST Patient calling in to check on the status of previous message. * Telephone Encounter - Patti White OSA - 09/14/2020 11:01 AM EST Patient calling in to check on the status of previous message. Please call back at [phone] * Telephone Encounter - Sabrina Batista OSA - 09/12/2020 3:21 PM EST Everytime patient goes to any appointments, they try [...] picking her up or putting her coat on.\. If not, she is asking if more units could be added to the rx,Pharmacy is currently waiting on preauthorization for more units becauseshe gets 2 per month and the patient has currently been without for 2 weeks because they all have gotten used since they keep getting knocked off. Please advise. documented in this encounter Plan of Treatment Upcoming Encounters Date Type Specialty Care Team Description 09/23/2020 Office [facility] [place] [address] [phone] 09/29/2020 Office Visit Orthopedics Jayme Benz MD [address] [place] [address] 10/02/2020 Telemedicine Endocrinology Alberta Duque PA-C [address] [place] [address] 10/28/2020 Office Visit Pharmacy [place], [facility] [address] [place] [address] 11/30/2020 Office Visit Family Medicine Alexandra Caceres DO [address] [place], [place] [address] 12/01/2020 Nutrition Services Gastroenterology Melissa Omalley RDN [address] [place] [address] [phone] 09/09/2021 Imaging Radiology Health Maintenance Due Date [...] of this encounter Implants Implanted Type Area Cylinder Press Operator Device Identifier Shelf Expiration Date Model / Serial / Lot Microtech Sure Clip Implanted:Qty: 2 on 06/03/2020 by Janis Hatch DO at OR [facility] Clip N/A: Colon 04/21/2022 [facility]-F-26-2 35-C-R / / [id number] documented as of this encounter Advance Directives Documents on File Type Date Recorded Patient Accredited Legal Secretary Expl anation Advanced Directive service a kerri [...]
--- OUTSIDE RECORDS SUMMARY | 2023-05-10 21:50 | External Medical Summary | Summary of Care ---
Author Name Unknown [place] [address] Care Team Providers Care Review Engineer Name Role Phone Alexandra Caceres Primary Care Provider [phone] Reason for Visit * Reason Comments eRx-Medication Refill Encounter Details Date Type Department Care Team Description 09/17/2020 Refill GP2, [facility] [address] [place] [address] Chad Reyes PA-C [address] [place] [address] [phone] Allergies Active Allergy Reactions Severity Noted Date Comments Adhesive Tape Itching 04/29/2020 Penicillins Rash 02/12/2008 Perflutren Protein A Microsph 2019 Definity-lower back pain documented as of this encounter (statuses as of 09/17/2020) Medications Medication Sig Dispensed Refills Start Date [...] 120 Vial 11 10/02/2019 Active nystatin (NYSTOP) 996670 UNIT/GM powder Apply topically to affected area [...] goal of less than 7.0% ([facility]) Inject 25 units under the skin once a day 30 mL 3 08/31/2020 Active Dexcom G6 Tetryl Wringer Operator Device Use as directed. To test [...] (6 UNITS) 15 mL 0 09/17/2020 Active NovoLOG FlexPen 100 UNIT/ML Subcutaneous Solution Pen-injector (insulin aspart) INJECT 12 UNITS UNDER THE SKIN THREE TIMES A DAY BEFORE MEALS. PLUS COVER MEALS WITH THE FOLLOWING SLIDING SCALE: 80-150 (O UNITS); 151-200 (2 UNITS); 201-250 (4 UNITS); 251-300 (6 UNITS) 15 mL 0 09/14/2020 1 Discontinued documented as of this encounter (statuses as of 09/17/2020) Active Problems Problem Noted Date Uncontrolled type [...] as of this encounter (statuses as of 09/17/2020) Resolved Problems Problem Noted Date Resolved Date [...] pain 01/24/2012 01/17/2017 Genetic Sleep Disorder Research Other*[id number] 05/13/2011 04/07/2016 Obstructive sleep apnea 01/18/2011 12/27/19 [...] as of this encounter (statuses as of 09/17/2020) Immunizations Name Administration Dates Next Due HEP [...] or bathing? 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-turkey boner helps 07/15/2020 Because of a physical, menta [...] Telephone Encounter - Cassie Barboza RN - 09/17/2020 8:55 AM EST Per chart review, this is ordered by Dr Alexandra Caceres. * Telephone Encounter - Zelda Mason RN - 09/17/2020 8:24 AM EST Pending Prescriptions: Disp Refills NovoLOG FlexPen 100 UNIT/ML Subcutaneous S*15 mL 0 Sig: INJECT 12 UNITS UNDER THE SKIN THREE TIMES A DAY BEFORE MEALS. PLUS COVER MEALS WITH THE FOLLOWING SLIDING SCALE: 80-150 (O UNITS); 151-200 (2 UNITS); 201-250 (4 UNITS); 251-300 (6 UNITS) documented in this encounter Plan of Treatment Upcoming Encounters Date Type Specialty Care Team Description 09/23/2020 Office Visit Gastroenterology Lyssa Stout CRNP [address] [place] [address] [phone] 09/29/2020 Office Visit Orthopedics Jayme Benz MD [address] [place] [address] 10/02/2020 Telemedicine Endocrinology Alberta Duque PA-C [address] [place] [address] 10/28/2020 Office Visit Pharmacy [facility] [address] [place] [address] 11/30/2020 Office Visit Family Medicine Alexandra Caceres DO [address] [place] [address] 12/01/2020 Nutrition Services Gastroenterology Melissa Omalley RDN [address] [place] [address] [phone] 09/09/2021 Imaging Radiology Health Maintenance Due Date [...] of this encounter Implants Implanted Type Area Lace Paper Machine Operator Device Identifier Shelf Expiration Date Model / Serial / Lot Microtech Sure Clip Implanted:Qty: 2 on 06/03/2020 by Janis Hatch DO at OR [facility] Clip N/A: Colon 04/21/2022 [facility]-F-26-2 35-C-R / / [id number] documented as of this encounter Advance Directives Documents on File Type Date Recorded Patient Mine Promotor Expl anation Advanced Directive service a kerri [...]
--- OUTSIDE RECORDS SUMMARY | 2023-05-10 21:50 | External Medical Summary | Summary of Care ---
Author Name Unknown Organization [facility] Address [place] [address] Care Team Providers Care Survey Compiler Name Role Phone Alexandra Caceres DO Primary Care Provider [phone] Reason for Visit * Reason Onset Date Comments Advice 09/12/2020 Status Check 09/12/2020 Encounter Details Date Type Department Care Team Description 09/12/2020 Telephone [facility] [address] [place], [place] [address] Alexandra Caceres DO [address] [place] [address] [phone] Advice; Status Check Allergies Active Allergy Reactions [...] 120 Vial 11 10/02/2019 Active nystatin (NYSTOP) 146442 UNIT/GM powder Apply topically to affected area [...] great toe 50 g 0 05/26/2020 Active Continuous Blood Gluc Marketing Designer (FREESTYLE XOCHITL 2 READER SYSTM) KORTNEY Freestyle Xochitl 2 14-day Marketing Designer (358250) 1 Package 0 05/26/2020 Active famotidine (PEPCID) 20 MG [...] less than 7.0% ([facility]) Inject 25 units under the skin once a day 30 mL 3 08/31/2020 Active FreeStyle Xochitl 2 Sensor Systm Use to test blood sugars 4 times a day Dx E11.9 6 Each 3 09/08/2020 Active documented as of this encounter (statuses [...] pain 01/24/2012 01/17/2017 Genetic Sleep Disorder Research Other*[id number] 05/13/2011 04/07/2016 Obstructive sleep apnea 01/18/2011 12/27/19 [...] or bathing? 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-sleep medicine physician helps 07/15/2020 Because of a physical, menta [...] of previous message. Please call back at [phone] * Telephone Encounter - Sabrina Batista OSA [...] [address] [facility] [place] [address] [phone] 09/29/2020 Office Visit Orthopedics Jayme Benz MD [address] [place] [address] 10/02/2020 Telemedicine Endocrinology Alberta Duque PA-C [address] [place] [address] 10/28/2020 Office Visit [address] [facility] [address] [place] [address] 11/30/2020 Office Visit Family Medicine Alexandra Caceres, [address] [place] [address] 12/01/2020 Nutrition Services Gastroenterology Melissa Omalley, [place] [address] [place] [address] [phone] 09/09/2021 Imaging Radiology Health Maintenance Due Date [...] of this encounter Implants Implanted Type Area Guest Services Agent Device Identifier Shelf Expiration Date Model / Serial / Lot Microtech Sure Clip Implanted:Qty: 2 on 06/03/2020 by Janis Hatch DO at OR [facility] Clip N/A: Colon 04/21/2022 [facility]-F-26-2 35-C-R / / [id number] documented as of this encounter Advance Directives Documents on File Type Date Recorded Patient Dianetic Counselor Expl anation Advanced Directive service a [...]
--- OUTSIDE RECORDS SUMMARY | 2023-05-10 21:51 | External Medical Summary | Summary of Care ---
Author Name Unknown [place] [address] Care Team Providers Care Vegetable Thinner Name Role Phone Alexandra Caceres Primary Care Provider Reason for Visit * Reason Comments eRx-Medication Refill Encounter Details Date Type Department Care Team Description 09/07/2020 Refill GP2, [facility] [address] [place] [address] Chad Reyes PA-C [address] [place] [address] [phone] Allergies Active Allergy Reactions Severity Noted Date Comments Adhesive Tape Itching 04/29/2020 Penicillins Rash 02/12/2008 Perflutren Protein A Microsph 2019 Definity-lower back pain documented as of this encounter (statuses as of 09/07/2020) Medications Medication Sig Dispensed Refills Start Date [...] 120 Vial 11 10/02/2019 Active nystatin (NYSTOP) 494467 UNIT/GM powder Apply topically to affected area [...] g 0 05/26/2020 Active Continuous Blood Gluc Oil Rag Washer (FREESTYLE XOCHITL 2 READER SYSTM) KORTNEY Freestyle Xochitl 2 14-day Oil Rag Washer (275208) 1 Package 0 05/26/2020 Active famotidine (PEPCID) [...] AT BEDTIME 30 Tab 2 08/12/2020 Active FreeStyle Xochitl 2 Sensor Systm Freestyle Xochitl 2 14-day Sensor (457176) (2 sensors=28 day/1-month supply) 2 Each 1 08/27/2020 Active Insulin Aspart 100 UNIT/ML Subcutaneous Solution (NovoLOG) Inject 28 units under the skin before breakfast, 28 units before lunch, and 28 units before supper 60 mL 3 08/31/2020 Active Lantus SoloStar 100 UNIT/ML Subcutaneous Solution Pen-injector (insulin glargine)Indications: Type 2 diabetes mellitus with hemoglobin A1c goal of less than 7.0% ([facility]) Inject 25 units under the skin once a day 30 mL 3 08/31/2020 Active documented as of this encounter (statuses as of 09/07/2020) Active Problems Problem Noted Date Uncontrolled type [...] as of this encounter (statuses as of 09/07/2020) Resolved Problems Problem Noted Date Resolved Date [...] pain 01/24/2012 01/17/2017 Genetic Sleep Disorder Research Other*[id number] 05/13/2011 04/07/2016 Obstructive sleep apnea 01/18/2011 12/27/19 [...] as of this encounter (statuses as of 09/07/2020) Immunizations Name Administration Dates Next Due HEP [...] or bathing? 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 PLUS COVER MEALS WITH THE FOLLOWING SLIDINGSCALE: 80-150 (O UNITS); 151-200 (2 UNITS); 201-250 (4 UNITS); 251-300 (6 UNITS)Refused By: AUREA FERRIS for Refusal: Managed by another physician documented in this encounter Plan of Treatment Upcoming Encounters Date Type Specialty Care Team Description 09/08/2020 Imaging Radiology 09/15/2020 Office Visit Orthopedics [facility]z MD [address] [facility] [place] [address] 09/23/2020 Office Visit Gastroenterology Lyssa Stout CRNP [address] [facility] [place] [address] [phone] 10/02/2020 Telemedicine Endocrinology Alberta Duque PA-C [address] [place] [address] [phone] 10/28/2020 Office Visit Pharmacy [facility] [address] [place] [address] [phone] 11/30/2020 Office Visit Family Medicine Alexandra Caceres DO [address] [place] [address] [phone] 12/01/2020 Nutrition Services Gastroenterology Melissa Omalley, RDN [address] [place] [address] [phone] Health Maintenance Due Date Last Done Comments DIABETES-EYE EXAM 06/12/2019 06/12/2018, , 06/12/2018, Additional history exists DIABETES-URINE MICROALBUMIN EVERY 12 MONTHS 01/12/2020 01/11/2019, 08/24/2018, 07/19/2018, Additional history exists Dexa Scan 2020 Pneumococcal Vaccine: 65+ Years (2 of 2 - PPSV23) 2020 05/02/2019, 06/01/2010 Zoster Vaccines (3 of 3) 06/23/2020 04/28/2020, 11/11 BREAST CANCER SCREENING DISCUSSION YEARLY AGES 40-75 09/02/2020 09/02/2019, 04/04/2018, 01/18/2017, Additional history exists DIABETES-FOOT EXAM 11/06/2020 11/06/2019, 0 01/09/2019, 12/26/2017, Additional history exists DIABETES-HGBA1C EVERY 6 MONTHS 01/04/2021 07/06/2020, 05/26/2020, 04/28/2020, Additional history exists Yearly B-12 07/14/2021 07/14/2020, 04/11, 02/21/2020, Additional history exists COLONOSCOPY-EVERY 5 YRS AGES 18-100 06/03/2025 06/03/2020, 06/03/2020, 03/17/2020, Additional history exists DTaP,Tdap,and Td Vaccines (3 - Td) 05/01/2027 05/01/2017, 05/26/2008 Influenza Vaccine (FLU shot) Completed , 06/05/2019, 06/05/2019, Additional history exists MENINGOCOCCAL (MENACTRA/MENVEO) Aged Out No longer eligible based on patient's age to complete this topic documented as of this encounter Implants Implanted Type Area Director Auto Device Identifier Shelf Expiration Date Model / Serial / Lot Microtech Sure Clip Implanted:Qty: 2 on 06/03/2020 by Janis Hatch DO at OR [facility] Clip N/A: Colon 04/21/2022 [facility]-F-26-2 35-C-R / / [id number] documented as of this encounter Advance Directives Documents on File Type Date Recorded Patient Fleet Assistant Expl anation Advanced Directive service a [...]
--- OUTSIDE RECORDS SUMMARY | 2023-05-10 21:51 | External Medical Summary | Summary of Care ---
Author Name Unknown Organization [place] [address] Care Team Providers Care Denture Model Maker Name Role Phone Maikel Caceres Primary Care Provider [phone] Reason for Visit * Reason Comments eRx-Medication Refill Encounter Details Date Type Department Care Team Description 09/13/2020 Refill GP2, [facility] [address] [place] [address] Chad Reyes PA-C [address] [place] [address] [phone] Allergies Active Allergy Reactions Severity Noted Date [...] 120 Vial 11 10/02/2019 Active nystatin (NYSTOP) 376971 UNIT/GM powder Apply topically to affected area [...] g 0 05/26/2020 Active Continuous Blood Gluc Writing Manager (FREESTYLE XOCHITL 2 READER SYSTM) KORTNEY Freestyle Xochitl 2 14-day Writing Manager (220694) 1 Package 0 05/26/2020 Active famotidine (PEPCID) [...] Dx E11.9 6 Each 3 09/08/2020 Active NovoLOG FlexPen 100 UNIT/ML Subcutaneous Solution Pen-injector (insulin aspart) INJECT 12 UNITS UNDER THE SKIN THREE TIMES A DAY BEFORE MEALS. PLUS COVER MEALS WITH THE FOLLOWING SLIDING SCALE: 80-150 (O UNITS); 151-200 (2 UNITS); 201-250 (4 UNITS); 251-300 (6 UNITS) 15 mL 0 09/14/2020 Active NovoLOG FlexPen 100 UNIT/ML Subcutaneous Solution Pen-injector (insulin aspart) INJECT 12 UNITS UNDER THE SKIN THREE TIMES A DAY BEFORE MEALS. PLUS COVER MEALS WITH THE FOLLOWING SLIDING SCALE: 80-150 (O UNITS); 151-200 (2 UNITS); 201-250 (4 UNITS); 251-300 (6 UNITS) 15 mL 0 09/13/2020 1 Discontinued documented as of this encounter [...] pain 01/24/2012 01/17/2017 Genetic Sleep Disorder Research Other*[id number] 05/13/2011 04/07/2016 Obstructive sleep apnea 01/18/2011 12/27/19 [...] Telephone Encounter - Maikel Caceres DO - 09/14/2020 10:03 AM EST Signed Prescriptions: Disp Refills NovoLOG FlexPen 100 UNIT/ML Subcutaneous S*15 mL 0 Sig: INJECT 12 UNITS UNDER THE SKIN THREE TIMES A DAY BEFORE MEALS. PLUS COVER MEALS WITH THE FOLLOWING SLIDING SCALE: 80-150 (O UNITS); 151-200 (2 UNITS); 201-250 (4 UNITS); 251-300 (6 UNITS) Authorizing Provider: MAIKEL CACERES * Telephone Encounter - Carlee Ley PA-C - 09/14/2020 7:37 AM EST Pending Prescriptions: Disp Refills NovoLOG [...] Office Visit Gastroenterology Lyssa Stout CRNP [address] [facility] [place] [address] [phone] 09/29/2020 Office Visit Orthopedics Jayme Benz MD [address] [place] [address] 10/02/2020 Telemedicine Endocrinology Alberta Duque PA-C [address] [place] [address] 10/28/2020 Office Visit Pharmacy [facility] [address] [place], [place] [address] 11/30/2020 Office Visit Family Medicine Maikel Caceres DO [address] [place] [address] [phone] 12/01/2020 Nutrition Services Gastroenterology Melissa Omalley RDN [address] [place] [address] [phone] 09/09/2021 Imaging Radiology Health Maintenance Due Date [...] of this encounter Implants Implanted Type Area Night Filler Device Identifier Shelf Expiration Date Model / Serial / Lot Microtech Sure Clip Implanted:Qty: 2 on 06/03/2020 by Janis Hatch DO at OR [facility] Clip N/A: Colon 04/21/2022 [facility]-F-26-2 35-C-R / / [id number] documented as of this encounter Advance Directives Documents on File Type Date Recorded Patient Active Directory Architect Expl anation Advanced Directive service a [...]
--- OUTSIDE RECORDS SUMMARY | 2023-05-10 21:51 | External Medical Summary | Summary of Care ---
Author Name Unknown Organization [facility] [place] [address] Care Team Providers Care Hot Mix Operator Name Role Phone Alexandra Caceres Primary Care Provider Encounter Details Date Type Department Care Team Description [facility] [address] [place] [address] [facility] [address] [place] [address] Ordering refill for Freestyle Xochitl. Allergies Active Allergy Reactions Severity Noted Date Comments Adhesive Tape Itching 04/29/2020 Penicillins Rash 02/12/2008 Perflutren Protein A Microsph 2019 Definity-lower back pain documented as of this encounter (statuses as of 09/08/2020) Medications Medication Sig Dispensed Refills Start Date [...] 120 Vial 11 10/02/2019 Active nystatin (NYSTOP) 345447 UNIT/GM powder Apply topically to affected area [...] g 0 05/26/2020 Active Continuous Blood Gluc Director Of Strategic Sales (FREESTYLE XOCHITL 2 READER SYSTM) KORTNEY Freestyle Xochitl 2 14-day Director Of Strategic Sales ([id number]) 1 Package 0 05/26/2020 Active famotidine (PEPCID) [...] of less than 7.0% ([facility]) Inject 25 units under the skin once a day 30 mL 3 08/31/2020 Active FreeStyle Xochitl 2 Sensor Systm Use to test blood sugars 4 times a day Dx E11.9 6 Each 3 09/08/2020 Active FreeStyle Xochitl 2 Sensor Systm Freestyle Xochitl 2 14-day Sensor (684024) (2 sensors=28 day/1-month supply) 2 Each 1 08/27/2020 09/08/2020 Discontinue d(Refill) documented as of this encounter (statuses as of 09/08/2020) Active Problems Problem Noted Date Uncontrolled type [...] as of this encounter (statuses as of 09/08/2020) Resolved Problems Problem Noted Date Resolved Date [...] pain 01/24/2012 01/17/2017 Genetic Sleep Disorder Research Other*[id number] 05/13/2011 04/07/2016 Obstructive sleep apnea 01/18/2011 12/27/19 [...] as of this encounter (statuses as of 09/08/2020) Immunizations Name Administration Dates Next Due HEP [...] or bathing? 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-concrete paving machine operator helps 07/15/2020 Because of a [...] [facility] - 09/08/2020 3:14 PM EST Ordering refill for Freestyle Xochitl. Indira Hudson [facility], Pharm D, BCACP Clinical Pharmacist 09/08/20 3:15 PM documented in this encounter Plan of Treatment Upcoming Encounters Date Type Specialty Care Team Description 09/23/2020 Office Visit Gastroenterology Lyssa Stout CRNP [address] [facility] [place] [address] [phone] 09/29/2020 Office Visit Orthopedics Jayme Benz MD [address] [place] [address] 10/02/2020 Telemedicine Endocrinology Alberta Duque PA-C [address] [place] [address] 10/28/2020 Office Visit Pharmacy [place], [address] [phone] 11/30/2020 Office Visit Family Medicine Alexandra [facility]aceres DO [address] [facility] [address] 12/01/2020 Nutrition Services Gastroenterology Melissa Omalley, [place] [address] [place] [address] [phone] 09/09/2021 Imaging Radiology Health Maintenance Due Date [...] this encounter Implants Implanted Type Area Chemical Laboratory Technician Device Identifier Shelf Expiration Date Model / Serial / Lot Microtech Sure Clip Implanted:Qty: 2 on 06/03/2020 by Janis Hatch DO at OR [facility] Clip N/A: Colon 04/21/2022 [facility]-F-26-2 35-C-R / / [id number] documented as of this encounter Advance Directives Documents on File Type Date Recorded Patient Robotics Software Engineer Expl anation Advanced Directive service a [...]
--- OUTSIDE RECORDS SUMMARY | 2023-05-10 21:51 | External Medical Summary | Summary of Care ---
Author Name Unknown Organization [place] [address] Care Team Providers Care Executive Secretary Name Role Phone Maikel Caceres Primary Care Provider [phone] Reason for Visit * Reason Comments eRx-Medication Refill Encounter Details Date Type Department Care Team Description 09/07/2020 Refill GP2, [facility] [address] [place] [address] Chad Reyes PA-C [address] [place] [address] [phone] Allergies Active Allergy Reactions Severity Noted Date Comments Adhesive Tape Itching 04/29/2020 Penicillins Rash 02/12/2008 Perflutren Protein A Microsph 2019 Definity-lower back pain documented as of this encounter (statuses as of 09/13/2020) Medications Medication Sig Dispensed Refills Start Date [...] 120 Vial 11 10/02/2019 Active nystatin (NYSTOP) 086837 UNIT/GM powder Apply topically to affected area [...] g 0 05/26/2020 Active Continuous Blood Gluc Lining Brusher (FREESTYLE XOCHITL 2 READER SYSTM) KORTNEY Freestyle Xochitl 2 14-day Lining Brusher (173437) 1 Package 0 05/26/2020 Active famotidine (PEPCID) [...] 251-300 (6 UNITS) 15 mL 0 09/13/2020 Active documented as of this encounter (statuses as of 09/13/2020) Active Problems Problem Noted Date Uncontrolled type [...] as of this encounter (statuses as of 09/13/2020) Resolved Problems Problem Noted Date Resolved Date [...] pain 01/24/2012 01/17/2017 Genetic Sleep Disorder Research Other*[id number] 05/13/2011 04/07/2016 Obstructive sleep apnea 01/18/2011 12/27/19 [...] as of this encounter (statuses as of 09/13/2020) Immunizations Name Administration Dates Next Due HEP [...] or bathing? 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-internal specialist helps 07/15/2020 Because of a physical, [...] Telephone Encounter - Maikel Caceres DO - 09/13/2020 5:22 PM EST Signed Prescriptions: Disp Refills NovoLOG FlexPen 100 UNIT/ML Subcutaneous S*15 mL 0 Sig: INJECT 12 UNITS UNDER THE SKIN THREE TIMES A DAY BEFORE MEALS. PLUS COVER MEALS WITH THE FOLLOWING SLIDING SCALE: 80-150 (O UNITS); 151-200 (2 UNITS); 201-250 (4 UNITS); 251-300 (6 UNITS) Authorizing Provider: MAIKEL CACERES * Telephone Encounter - Carlee Ley PA-C - 09/08/2020 7:30 AM EST Pending Prescriptions: Disp Refills NovoLOG [...] [facility] [place] [address] 09/29/2020 Office Visit Orthopedics Jayme Benz MD [address] [place] [address] 10/02/2020 Telemedicine Endocrinology Alberta Duque PA-C [address] [place] [address] 10/28/2020 Office Visit Pharmacy [facility] [address] [place] [address] 11/30/2020 Office Visit Family Medicine Maikel Caceres, DO [address] [place] [address] 12/01/2020 Nutrition Services Gastroenterology Melissa Omalley, SAMANTHA [address] [place] [address] [phone] 09/09/2021 Imaging Radiology Health Maintenance Due Date [...] this encounter Implants Implanted Type Area Oracle Database Architect Device Identifier Shelf Expiration Date Model / Serial / Lot Microtech Sure Clip Implanted:Qty: 2 on 06/03/2020 by Janis Hatch DO at OR [facility] Clip N/A: Colon 04/21/2022 [facility]-F-26-2 35-C-R / / [id number] documented as of this encounter Advance Directives Documents on File Type Date Recorded 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
--- OUTSIDE RECORDS SUMMARY | 2023-05-10 21:51 | External Medical Summary | Summary of Care ---
Author Name Unknown Organization [place] [address] Care Team Prov[address] Care Ct Technologist Name Role Phone NikAlexandra fernandez Daisha MORENO Primary Care Provider Reason for Visit * Reason Comments Weight Management one month follow up Encounter Details Date Type Department Care Team Description 09/01/2020 Nutrition Services Nutrition & Weight Management, [facility] [address] [facility] [place] [address] Melissa Omalley RDN [address] [place] [address] [phone] Obesity, morbid (more than 100 lbs over ideal weight or BMI > 40) ([facility])*; Type 2 diabetes mellitus with hemoglobin A1c goal of less than 7.0% (HCC); HTN, goal below 140/90; Cirrhosis of liver (HCC); Lymphedema; Dyslipidemia, goal LDL below 70; Acquired hypothyroidism Allergies Active Allergy Reactions Severity Noted Date Comments Adhesive Tape Itching 04/29/2020 Penicillins Rash 02/12/2008 Perflutren Protein A Microsph 2019 Definity-lower back pain documented as of this encounter (statuses as of 09/01/2020) Medications Medication Sig Dispensed Refills Start Date [...] 120 Vial 11 10/02/2019 Active nystatin (NYSTOP) 043828 UNIT/GM powder Apply topically to affected area [...] g 0 05/26/2020 Active Continuous Blood Gluc Insurance Producer (FREESTYLE XOCHITL 2 READER SYSTM) KORTNEY Freestyle Xochitl 2 14-day Insurance Producer ([id number]) 1 Package 0 05/26/2020 Active famotidine (PEPCID) [...] Sensor Systm Freestyle Xochitl 2 14-day Sensor (096069) (2 sensors=28 day/1-month supply) 2 Each 1 [...] as of this encounter (statuses as of 09/01/2020) Active Problems Problem Noted Date Uncontrolled type [...] as of this encounter (statuses as of 09/01/2020) Resolved Problems Problem Noted Date Resolved Date [...] pain 01/24/2012 01/17/2017 Genetic Sleep Disorder Research Other*[id number] 05/13/2011 04/07/2016 Obstructive sleep apnea 01/18/2011 12/27/19 [...] as of this encounter (statuses as of 09/01/2020) Immunizations Name Administration Dates Next Due HEP [...] Reading Time Taken Comments Blood Pressure 110/70 09/01/2020 3:46 PM EST Pulse 64 09/01/2020 3:46 PM EST Temperature 36.7 C (98.1 F) 09/01/2020 3:46 PM ES T Respiratory Rate - - [...] bathing? 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-storage receipt poster helps 07/15/2020 Because of a physical, [...] * Patient Instructions* Melissa Omalley RDN - 09/01/2020 4:12 PM EST PATIENT GOALS: 1. Minimize/Avoid simple sugar foods - I.e. White breads, pasta, bagels, crackers, etc. 2. Increase water intake, cut down on sugary beverages 3. increase fruit as snacks instead of processed simple carbs NUTRITION MONITORING/EVALUATION Monitor weight loss progress for adjustments in patient's nutrition/lifestyle goals accordingly. Monitor oral intake for an oral nutrition supplement when intake is less than 50%. Recommend SugarFfree Excelsior Instant Breakfast. Patient May mix with 2% milk ( only type of milk patient will drink.) documented in this encounter Progress Notes * Melissa Omalley RDN - 09/01/2020 3:40 PM EST WEIGHT MANAGEMENT FOLLOW UP [facility] [place] Patient was identified at visit by name and date. DATE: 09/01/2020 Office Visit NUTRITION ASSESSMENT Diagnosis Code for [...] below 70 [E78.5] Acquired hypothyroidism [E03.9] SUBJECTIVE: Patient here today for return visit nutrition counseling for weight management.Since last visit patient exeperienced a foot infection on right foot and was in the hospital in [place]2 [place]. Most recent weight: 264 lbs Ht: 4'11" BMI: 53.32 LAST OFFICE VISIT: 253 lbs 01/29/2020 WEIGHT CHANGES: Weight decreased 6 lbs since 07/16/2020. Wt Readings from Last 20 Encounters: 08/07/20 119.7 kg (264 lb) 08/05/20 119.7 [...] 3.2 oz) 03/30/20 113.4 kg (250 lb) 01/29/20 128.4 kg (283 lb) Describes typical diet history/24 hr recall Breakfast: Couple eggs, lam and toast Lunch: Sometimes a sandwich occasional soup (tomato) Dinner: Left overs from the night before soup or a chicken Or a Meat, potatoes vegetables Drinks: 48-64 ounces of fluid a day MNT: Calorie Controlled Diet LABS: Component Latest Ref Rng & Units 08/21/2020 BUN 6 - 20 mg/dL 12 CREATININE 0.5 - 1.0 mg/dL 0.7 E GLOM FILT RATE >60 >60.0 SODIUM 135 - 146 mmol/L 142 POTASSIUM 3.5 - 5.1 mmol/L 4.1 CHLORIDE 98 - 107 mmol/L 107 CO2 22 - 32 mmol/L 25 ANION GAP 7 - 15 mmol/L 10 GLUCOSE 70 - 120 mg/dL 220 (H) ALBUMIN 3.8 - 5.0 g/dL 3.6 (L) AST 10 - 35 U/L 43 (H) ALKALINE PHOSPHATASE 0 - 153 U/L 150 BILIRUBIN 0 - 1.2 mg/dL 0.7 CALCIUM 8.4 - 10.2 mg/dL 8.9 PROTEIN 6.0 - 8.3 g/dL 7.0 ALT 10 - 35 U/L 23 Component Latest Ref Rng & Units 08/14/2020 ALBUMIN 3.8 - 5.0 g/dL 3.4 (L) AST 10 - 35 U/L 53 (H) ALKALINE PHOSPHATASE 0 - 153 U/L 152 ALT 10 - 35 U/L 25 BILIRUBIN 0 - 1.2 mg/dL 0.7 BILIRUBIN, DIRECT 0 - 0.3 mg/dL 0.2 PROTEIN 6.0 - 8.3 g/dL 6.6 NUTRITION DIAGNOSIS Food and nutrition related knowledge [...] I.e. White breads, pasta, bagels, crackers, etc. 2. Increase water intake, cut down on sugary beverages 3. increase fruit as snacks instead of processed simple carbs NUTRITION MONITORING/EVALUATION Monitor weight loss progress for adjustments in patient's nutrition/lifestyle goals accordingly. Monitor oral intake for an oral nutrition supplement when intake is less than 50%. Recommend Sugar Free Excelsior Instant Breakfast. Patient May mix with 2% milk ( only type of milk patient will drink.) PLAN: Follow up in 3 months with dietitian. 20 Minute Return Face to Face Visit Melissa Omalley RDN, LDN documented in this encounter Nursing Notes * Sabine Valencia LPN - 09/01/2020 3:49 PM EST Patient identified by full name and date of Chief Complaint Patient presents with Weight Management one month follow up documented in this encounter Plan of Treatment Upcoming Encounters Date Type Specialty Care Team Description 09/03/2020 Imaging Radiology 09/15/2020 Office Visit Orthopedics Jayme Benz MD [address] [place], [place] [phone] 09/23/2020 Office Visit Gastroenterology Lyssa Stout CRNP [address] [place] [address] [phone] 10/02/2020 Telemedicine Endocrinology Alberta Duque PA-C [address] [place], [place] [phone] 10/28/2020 Office Visit Pharmacy [place], [facility] [address] [place] [address] 11/30/2020 Office Visit Family Medicine Alexandra Caceres DO [address] [place] [address] [phone] 12/01/2020 Nutrition Services Gastroenterology Yohn, Melissa Serafin, RDN [address] [place] [address] [phone] Scheduled Orders Name Type Priority Associated Diagnoses Orde r Schedule MED NUTRITION TX; SUBSEQ 15 MIN (ANCILARY) Procedures Routine Obesity, morbid (more than 100 lbs over ideal weight or BMI > 40) (HCC) Type 2 diabetes mellitus with hemoglobin A1c goal of less than 7.0% (HCC) HTN, goal below 140/90 Cirrhosis of liver (HCC) Lymphedema Dyslipidemia, goal LDL below 70 Acquired hypothyroidism Ordered: 09/01/2020 Health Maintenance Due Date Last Done Comments [...] this encounter Implants Implanted Type Area Field Pipe Lines Supervisor Device Identifier Shelf Expiration Date Model / Serial / Lot Microtech Sure Clip Implanted:Qty: 2 on 06/03/2020 by Janis Hatch DO at OR [facility] Clip N/A: Colon 04/21/2022 [facility]-F-26-2 35-C-R / / [id number] documented as of this encounter Visit Diagnoses Diagnosis Obesity, morbid (more than 100 lbs over ideal weight or BMI > 40) (HCC)- Primary Morbid obesity Type 2 diabetes mellitus with hemoglobin A1c goal of less than 7.0% (HCC) HTN, goal below 140/90 Unspecified essential hypertension Cirrhosis of liver (HCC) Cirrhosis of liver without mention of alcohol Lymphedema Other lymphedema Dyslipidemia, goal LDL below 70 Other and unspecified hyperlipidemia Acquired hypothyroidism Unspecified hypothyroidism documented in this encounter Advance Directives Documents on File Type Date Recorded 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
--- OUTSIDE RECORDS SUMMARY | 2023-05-10 21:52 | External Medical Summary | Summary of Care ---
Author Name Unknown Organization [facility] [place] [address] Care Team Providers Care Database Architect Name Role Phone Alexandra Caceres DO Primary Care Provider Encounter Details Date Type Department Care Team Description 08/26/[address] [facility] [address] [place] [address] Alexandra Caceres DO [address], [place] [id number] Type 2 diabetes mellitus with hemoglobin A1c goal of less than 7.0% ([facility])* Allergies Active Allergy Reactions Severity Noted Date Comments Adhesive Tape Itching 04/29/2020 Penicillins Rash 02/12/2008 Perflutren Protein A Microsph 2019 Definity-lower back pain documented as of this encounter (statuses as of 08/28/2020) Medications Medication Sig Dispensed Refills Start Date [...] 120 Vial 11 10/02/2019 Active nystatin (NYSTOP) 250130 UNIT/GM powder Apply topically to affected area [...] 1 05/12/2020 Active escitalopram (LEXAPRO) 20 MG TabletIndications:Re current [...] g 0 05/26/2020 Active Continuous Blood Gluc Automatic Fabric Cutter (FREESTYLE XOCHITL 2 READER SYSTM) KORTNEY Freestyle Xochitl 2 14-day Automatic Fabric Cutter (909316) 1 Package 0 05/26/2020 Active famotidine (PEPCID) 20 MG Tablet Take 1 Tab by mouth every night at bedtime. 34 Tab 0 05/29/2020 Active Trulicity 1.5 MG/0.5ML Subcutaneous Solution Pen-injector (Dulaglutide)Indicat ions:Type 2 diabetes mellitus with hemoglobin A1c goal of less than 7.0% (HCC) Inject 1.5mg (one pen) under the skin once weekly 6 mL 3 06/12/2020 Active Lantus SoloStar 100 UNIT/ML Subcutaneous Solution Pen-injector (insulin glargine)Indications :Type 2 diabetes mellitus with hemoglobin A1c goal of less than 7.0% (HCC) Inject 30 units under the skin once a day 30 mL 3 06/19/2020 Active Additional Information Patient taking differently: Inject 35 units under the skin once a day, Informant: Pharmacy, Reported on 08/05/2020 BD Pen Needle Mini U/F 31G X [...] a day. 60 Each 3 07/27/2020 Active Insulin Aspart 100 UNIT/ML Subcutaneous Solution (NovoLOG) Inject 26 units under the skin before breakfast, 26 units before lunch, and 30 units before supper 60 mL 3 08/08/2020 Active Cyclobenzaprine HCl 10 MG Oral Tablet (FLEXERIL) TAKE 1 TABLET BY MOUTH AT BEDTIME 30 Tab 2 08/12/2020 Active FreeStyle Xochitl 2 Sensor Systm Freestyle Xochitl 2 14-day Sensor (191427) (2 sensors=28 day/1-month supply) 2 Each 1 08/27/2020 Active documented as of this encounter (statuses as of 08/28/2020) Active Problems Problem Noted Date Uncontrolled type [...] as of this encounter (statuses as of 08/28/2020) Resolved Problems Problem Noted Date Resolved Date [...] pain 01/24/2012 01/17/2017 Genetic Sleep Disorder Research Other*[id number] 05/13/2011 04/07/2016 Obstructive sleep apnea 01/18/2011 12/27/19 [...] as of this encounter (statuses as of 08/28/2020) Immunizations Name Administration Dates Next Due HEP [...] or bathing? 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-composition weatherboard installer helps 07/15/2020 Because of a physical, menta [...] of this encounter Progress Notes * Alexandra Caceres DO - 08/26/2020 11:17 AM EST Attempted to call patient at 11:19, no answer, and no way to leave a message. Called at 1:05 left message, no answer. Alexandra Caceres DO documented in this encounter Plan of Treatment Upcoming Encounters Date Type Specialty Care Team Description 08/28/2020 Hem/Onc Treatment Hematology Oncology [place], [facility] 11 Hem/Onc [address] [place] [address] [phone] 08/31/2020 Office Visit Pharmacy [place], [facility] [address] [place], [place] [phone] 09/01/2020 Nutrition Services Gastroenterology Melissa Omalley RDN [address] [facility] [address] [place] [address] 09/03/2020 Imaging Radiology 09/15/2020 Office Visit Orthopedics Jayme Benz MD [address] [place] [address] [phone] 09/23/2020 Office Visit Gastroenterology Lyssa Stout CRNP [address] [place] [address] [phone] 10/02/2020 Telemedicine Endocrinology Alberta Duque PA-C [address] [facility] [address] [phone] 11/30/2020 Office Visit Family Medicine Alexandra Caceres, DO [address], [place] [id number] Health Maintenance Due Date Last Done Comments [...] of this encounter Implants Implanted Type Area First Assist Device Identifier Shelf Expiration Date Model / Serial / Lot Microtech Sure Clip Implanted:Qty: 2 on 06/03/2020 by Janis Hatch DO at [facility] Clip N/A: Colon 04/21/2022 [facility]-F-26-2 35-C-R / / [id number] documented as of this encounter Visit Diagnoses Diagnosis Type 2 diabetes mellitus with hemoglobin A1c goal of less than 7.0% (HCC)- Primary documented in this encounter Advance Directives Documents on File Type Date Recorded Patient It Desktop Support Specialist Expl anation Advanced Directive service a [...]
--- OUTSIDE RECORDS SUMMARY | 2023-05-10 21:52 | External Medical Summary | Summary of Care ---
Author Name Unknown Organization [place] [address] Care Team Providers Care Derrick Boat Operator Name Role Phone Alexandra Caceres Primary Care Provider Reason for Visit * Reason Comments Treatment Encounter Details Date Type Department Care Team Description 08/28/2020 Hem/Onc Treatment Hematology Oncology [facility], [place] [address] [place] [address] [place], [place] [address] Hem/Onc [facility] [place] [address] Iron deficiency anemia due to chronic blood [...] 120 Vial 11 10/02/2019 Active nystatin (NYSTOP) 709672 UNIT/GM powder Apply topically to affected area [...] g 0 05/26/2020 Active Continuous Blood Gluc Order Schedule Clerk (FREESTYLE XOCHITL 2 READER SYSTM) KORTNEY Freestyle Xochitl 2 14-day Order Schedule Clerk ([id number]) 1 Package 0 05/26/2020 Active famotidine (PEPCID) [...] 2 08/12/2020 Active FreeStyle Xochitl 2 Sensor Syst Freestyle Xochitl 2 14-day Sensor (894288) (2 sensors=28 day/1-month supply) 2 Each 1 [...] pain 01/24/2012 01/17/2017 Genetic Sleep Disorder Research Other*[id number] 05/13/2011 04/07/2016 Obstructive sleep apnea 01/18/2011 12/27/19 [...] Sign Reading Time Taken Comments Blood Pressure 114/76 08/28/2020 1:49 PM EST Pulse 92 08/28/2020 1:49 PM EST Temperature 36.4 C (97.6 F) 08/28/2020 1:49 PM ES T Respiratory Rate 18 08/28/2020 1:49 PM EST Oxygen Saturation 94% 08/28/2020 1:49 PM EST RA Inhaled Oxygen Concentration - - Weight - [...] or bathing? 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-transit operations supervisor helps 07/15/2020 Because of a physical, [...] Encounters Date Type Specialty Care Team Description 08/31/2020 Office Visit Pharmacy [facility] [address] [place] [address] [phone] 09/01/2020 Nutrition Services Gastroenterology Melissa Omalley RDN [address] [facility] [place] [address] [phone] 09/03/2020 Imaging Radiology 09/15/2020 Office Visit [facility]oped[facility] [address] [facility] [address] 09/23/2020 Office Visit Gastroenterology Lyssa Stout CRNP [address] [facility] [place] [address] [phone] 10/02/2020 Telemedicine Endocrinology Alberta Duque PA-C [address] [place] [address] 11/30/2020 Office Visit Family Medicine Alexandra Caceres, DO [address] [place] [address] [phone] Health Maintenance Due Date Last Done Comments [...] of this encounter Implants Implanted Type Area Corrugated Fastener Driver Device Identifier Shelf Expiration Date Model / Serial / Lot Microtech Sure Clip Implanted:Qty: 2 on 06/03/2020 by Janis Hatch DO at OR [facility] Clip N/A: Colon 04/21/2022 [facility]-F-26-2 35-C-R / / [id number] documented as of this encounter Visit Diagnoses Diagnosis Iron deficiency anemia due to chronic blood loss- Primary Iron deficiency anemia secondary to blood loss (chronic) documented in this encounter Administered Medications Active Administered Medications - up to 3 most recent administrations Medication Order MAR Action Action Date Dose Rate Site diphenhydrAMINE (BENADRYL) inj 50 mg 50 mg, IV Push, ONCE PRN Other, Hypersensitivity Reaction, Starting Mon08/28/20 at 1448, Until 08/29/20 at 1447, For 24 hours EPINEPHrine 1 MG/ML inj 0.3 mg 0.3 mg, Intramuscular, ONCE PRN Other, Hypersensitivity Reaction or Anaphylaxis, Starting Mon08/28/20 at 1448, Until 08/29/20 at 1447, For 24 hours hEParin 100 UNIT/ML Lock Flush inj 500 Units 500 Units (5 mL), IV Lock, PRN Other, IV Flush, Starting Mon08/28/20 at 1448, Until 08/29/20 at 1447, For 24 hours, Do not flush if lock, PICC, or central line not in place; IV infusing or unable to flush., hydrocortisone na succinate pf (SOLU-CORTEF) inj 100 mg 100 mg, IV Push, ONCE PRN Other, Hypersensitivity Reaction, Starting Mon08/28/20 at 1448, Until 08/29/20 at 1447, For 24 hours NSS infusion 500 mL, Intravenous, at 50 mL/hr, CONTINUOUS, Starting Mon08/28/20 at 1600, Until 08/29/20 at 0159 Start Infusion 08/28/2020 3:13 PM EST 500 mL 50 mL/hr sodium chloride 0.9% flush/inj 10 mL 10 mL, IV Push, PRN Other, IV Flush, Starting Mon08/28/20 at 1448, Until 08/29/20 at 1447, For 24 hours, Do not flush if lock, PICC, or central line not in place; IV infusing or unable to flush., Inactive Administered Medications - up to 3 most recent administrations Medication Order MAR Action Action Date Dose Rate Site iron sucrose (VENOFER) 300 mg in NSS 100 mL ivpb 300 mg, IV Piggyback, ONCE, 1 dose, 08/28/20 at 1630, Administer over 90 Minutes Start Infusion 08/28/2020 3:13 PM EST 300 mg documented in this encounter Advance Directives Documents on File Type Date Recorded 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
--- OUTSIDE RECORDS SUMMARY | 2023-05-10 21:52 | External Medical Summary | Summary of Care ---
Author Name Unknown Organization [facility] Address [facility] [place] [address] Care Team Providers Care Senior Partner Name Role Phone Alexandra Caceres Primary Care Provider [phone] Reason for Visit * Reason Comments Dosage Adjustment In Person (Anticoag Cl inic) Diabetes Follow-Up Encounter Details Date Type Department Care Team Description 08/31/2020 Office Visit Pharmacy, [place] [address] [place] [address] [place] [facility] [address] [place] [address] [phone] Type 2 diabetes mellitus with hemoglobin A1c goal of less than 7.0% ([facility])* Allergies Active Allergy Reactions Severity Noted Date Comments Adhesive Tape Itching 04/29/2020 Penicillins Rash 02/12/2008 Perflutren Protein A Microsph 2019 Definity-lower back pain documented as of this encounter (statuses as of 08/31/2020) Medications Medication Sig Dispensed Refills Start Date [...] 120 Vial 11 10/02/2019 Active nystatin (NYSTOP) 096524 UNIT/GM powder Apply topically to affected area [...] g 0 05/26/2020 Active Continuous Blood Gluc Carbonation Equipment Operator (FREESTYLE XOCHITL 2 READER SYSTM) KORTNEY Freestyle Xochitl 2 14-day Carbonation Equipment Operator (407227) 1 Package 0 05/26/2020 Active famotidine (PEPCID) [...] Sensor Systm Freestyle Xochitl 2 14-day Sensor (855569) (2 sensors=28 day/1-month supply) 2 Each 1 [...] a day 30 mL 3 08/31/2020 Active Lantus SoloStar 100 UNIT/ML Subcutaneous Solution Pen-injector (insulin glargine)Indicatio ns:Type 2 diabetes mellitus with hemoglobin A1c goal of less than 7.0% (HCC) Inject 30 units under the skin once a day 30 mL 3 06/19/2020 0 Discontinued Insulin Aspart 100 UNIT/ML Subcutaneous Solution (NovoLOG) Inject 26 units under the skin before breakfast, 26 units before lunch, and 30 units before supper 60 mL 3 08/08/2020 0 Discontinued documented as of this encounter (statuses as of 08/31/2020) Active Problems Problem Noted Date Uncontrolled type [...] as of this encounter (statuses as of 08/31/2020) Resolved Problems Problem Noted Date Resolved Date [...] pain 01/24/2012 01/17/2017 Genetic Sleep Disorder Research Other*[id number] 05/13/2011 04/07/2016 Obstructive sleep apnea 01/18/2011 12/27/19 [...] as of this encounter (statuses as of 08/31/2020) Immunizations Name Administration Dates Next Due HEP [...] or bathing? 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-land acquisition manager helps 07/15/2020 Because of a physical, [...] encounter Progress Notes * Indira Hudson, [facility] - 08/31/2020 2:36 PM EST Shaina Bustos, identified by name and date of , is a 65 year old female being seen for diabetesmanagement/education. Patient presents for return diabetic visit. Diagnosis: Type 2 DIABETES: Current diabetic medications: INCREASE: Novolog, Inject 26 units before breakfast, 26 units before lunch, and 30 units before supper. - reports was instructed to take 28 units before all meals Lantus pen, 30 units daily Metformin 1000mg, 1 tablet twice a day Trulicity 1.5mg SQ weekly GFR >60 as of 05/29/20 Lifestyle: unchanged Glucose review/SMBG: Patient currently testing 4 times a day Hypoglycemia: Does your blood sugar go below 70 mg/dL? Yes, overnight Hyperglycemia symptoms present: none No POCHEMOGLOBIN components found HEMOGLOBIN, A1C(%) Lucio Dt/Tm Resulted Value Status 07/06/20 5:24A 07/06/20 9.9* FINAL 05/26/20 4:44A 05/26/20 11.0* FINAL 04/28/20 4:37P 04/28/20 9.9* FINAL No EGLOM components found CREATININE(mg/dL) Lucio Dt/Tm Resulted Value Status 08/21/20 4:35P 08/21/20 0.7 FINAL 08/14/20 6:53P 08/14/20 0.6 FINAL 08/12/20 1:40P 08/12/20 0.6 FINAL HYPERTENSION: Patient on ACEi/ARB: no, . Blood pressure at goal: yes HYPERLIPIDEMIA: Patient is taking moderate or high intensity statin: yes HEALTH MAINTENANCE REVIEW: Health Maintenance Due Topic Date Due DIABETES-EYE EXAM 06/12/2019 DIABETES-URINE MICROALBUMIN EVERY 12 MONTHS 01/12/2020 Dexa Scan 2020 Pneumococcal Vaccine: 65+ Years (2 of 2 - PPSV23) 2020 Zoster Vaccines (3 of 3) 06/23/2020 BREAST CANCER SCREENING DISCUSSION YEARLY AGES 40-75 09/02/2020 DIABETES-FOOT EXAM 11/06/2020 ASSESSMENT & PLAN: History of Treatment Barriers: none Goal A1C < 7% Presents with BG Log Blood sugars improving. Patient had Xochitl placed in [place]. Doing well with it but reports that sensor was damaged. Also reports having issues keeping it on arm. They will contact Xochitl to see if they can replace damaged sensor/sensor that was not working. Discussed with patient that we can have her place the sensor on her stomach, although not recommended via package insert, xochitl manufacturers representative says it can be done if the issue is sticking or ability to apply the patch. At thist point in time, patient would benefit from continued use of Xochitl and so recommend being able to have BG values is very important at this time and thus will have her place it on her abdomen for closer monitoring. Patient is agreeable. Medications Reviewed current regimen, patient is adherent to regimen. Tolerating. BG overall improving but patient going low overnight. Will decrease basal. Patient does not have computer so unable to share Xochitl data. Patient will contact clinic if any issues. Patient has PCP appt with provider in Oct so will get A1C at that time. Discussed increasing Trulicity but not interested at this time. Can consider in the future. Patient is agreeable to SMBG 4 time(s) daily. Patient aware to contact clinic if any hypoglycemia before next visit. MEDICATION CHANGES: Yes, see below Diabetic Medications: ADJUST: Novolog, Inject 28 units before breakfast, 28 units before lunch, and 28 units before supper- to reflect how patient taking DECREASE: Lantus pen, 25 units daily Metformin 1000mg, 1 tablet twice a day Trulicity 1.5mg SQ weekly GFR >60 as of 05/29/20 HEALTH MAINTENANCE INTERVENTIONS: Patient has upcoming PCP appt so will defer FOLLOW UP: Return to clinic in 8 weeks Next Office Visit: 10/28/2020 Scheduled Provider(s): [facility] [place] Indira Hudson [facility] Clinical Pharmacist - Lease Administrator Medication Therapy Management Clinic 08/31/2020, 2:36 PM Electronically signed by Indira Hudson [facility] at 08/31/2020 4:52 PM EST documented in this encounter Plan of Treatment Upcoming Encounters Date Type Specialty Care Team Description 09/01/2020 Nutrition Services Gastroenterology Melissa Omalley RDN [address] [facility] [place] [address] [phone] 09/03/2020 Imaging Radiology 09/15/2020 Office Visit Orthopedics Jayme Benz MD [address] [place] [facility] [place] [address] 09/23/2020 Office Visit Gastroenterology Lyssa Stout CRNP [address] [facility] [place] [address] [phone] 10/02/2020 Telemedicine Endocrinology Alberta Duque PA-C [address] [place] [address] [phone] 10/28/2020 Office Visit [facility] [address] [place] [address] [phone] 11/30/2020 Office Visit Family Medicine Alexandra Caceres DO [address] [place] [address] [phone] Health Maintenance Due Date Last Done Comments [...] of this encounter Implants Implanted Type Area Plans Examiner Device Identifier Shelf Expiration Date Model / Serial / Lot Microtech Sure Clip Implanted:Qty: 2 on 06/03/2020 by Janis Hatch DO at OR [facility] Clip N/A: Colon 04/21/2022 [facility]-F-26-2 35-C-R / / [id number] documented as of this encounter Visit Diagnoses Diagnosis Type 2 diabetes mellitus with hemoglobin A1c goal of less than 7.0% (HCC)- Primary documented in this encounter Advance Directives Documents on File Type Date Recorded Patient Sales Service Manager Expl 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
--- OUTSIDE RECORDS SUMMARY | 2023-05-10 21:52 | External Medical Summary | Summary of Care ---
Author Name Unknown Organization [facility] Address [place] [address] Care Team Providers Care Treating Plant Pumper Name Role Phone Alexandra Caceres Primary Care Provider [phone] Reason for Visit * Reason Comments Emergency Department Follow-Up [facility] [place] [facility] visit Encounter Details Date Type Department Care Team Description 08/27/2020 [facility] [address] [place] [address] Joel Jordan MD [address] [place], [place] [id number] No-show for appointment* Allergies Active Allergy Reactions Severity Noted Date Comments Adhesive Tape Itching 04/29/2020 Penicillins Rash 02/12/2008 Perflutren Protein A Microsph 2019 Definity-lower back pain documented as of this encounter (statuses as of 08/27/2020) Medications Medication Sig Dispensed Refills Start Date [...] 120 Vial 11 10/02/2019 Active nystatin (NYSTOP) 703553 UNIT/GM powder Apply topically to affected area [...] g 0 05/26/2020 Active Continuous Blood Gluc Electromechanic (FREESTYLE XOCHITL 2 READER SYSTM) KORTNEY Freestyle Xochitl 2 14-day Electromechanic (386233) 1 Package 0 05/26/2020 Active famotidine (PEPCID) [...] Sensor Systm Freestyle Xochitl 2 14-day Sensor (811163) (2 sensors=28 day/1-month supply) 2 Each 1 08/27/2020 Active documented as of this encounter (statuses as of 08/27/2020) Active Problems Problem Noted Date Uncontrolled type [...] as of this encounter (statuses as of 08/27/2020) Resolved Problems Problem Noted Date Resolved Date [...] pain 01/24/2012 01/17/2017 Genetic Sleep Disorder Research Other*[id number] 05/13/2011 04/07/2016 Obstructive sleep apnea 01/18/2011 12/27/19 18 Overview: 08/18/11 -- BIPAP auto: max IPAP to 18, min EPAP 10. SD card in 3 months. 06/29/11 Auto BIPAP -- max IPAP 15, min EPAP 9 with pressure support of 4. AHP ICD-10 update of inactive term Lumbosacral spondylosis 12/27/2010 09/14/20 12 Dyslipidemia, goal LDL below 130 06/01/2010 [...] as of this encounter (statuses as of 08/27/2020) Immunizations Name Administration Dates Next Due HEP [...] or bathing? 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-fast food assistant restaurant manager helps 07/15/2020 Because of a physical, [...] Progress Notes * Joel Jordan MD - 08/27/2020 2:21 PM EST Failed tele visit via telephone failed. In followup for a [facility] ER visit 08/21/2020, notes retrieved and reviewed Called patient on mobile number, answering machine, unable to leave message, mailbox not set up. [phone] Tried home number [phone] reached voice mail, tried to leave a message, and after about 10 secand before I could finish my message, the line went Tried mobile number a second time, answering device, mailbox not set up. I note she had a tele visit set up yesterday with Dr Caceres and she did not answer. Note made of a dobutamine stress echo done at [facility] 06/25/2020 was non diagnositic submaxial stress test. Joel Jordan MD [address] [address] documented in this encounter Plan of Treatment Upcoming Encounters Date Type Specialty Care Team Description 08/28/2020 Hem/Onc Treatment Hematology Oncology Alex, Chair 11 Hem/Onc [address], [place] [id number] 08/31/2020 Office Visit Pharmacy [facility] [address], [place] [id number] 09/01/2020 Nutrition Services Gastroenterology Melissa Omalley, RDN [address] [place] [address] [phone] 09/03/2020 Imaging Radiology 09/15/2020 Office Visit Orthopedics Jayme Benz MD [address] [place], [place] [address] 09/23/2020 Office Visit Gastroenterology Lyssa Stout CRNP [address] [facility] [place] [address] [phone] 10/02/2020 Telemedicine Endocrinology Alberta Duque PA-C [address] [place] [address] 11/30/2020 Office Visit Family Medicine Alexandra Caceres DO [address], [place] [phone] Health Maintenance Due Date Last Done Comments [...] of this encounter Implants Implanted Type Area Boilermaker Mechanic Device Identifier Shelf Expiration Date Model / Serial / Lot Microtech Sure Clip Implanted:Qty: 2 on 06/03/2020 by Janis Hatch DO at OR [facility] Clip N/A: Colon 04/21/2022 [facility]-F-26-2 35-C-R / / [id number] documented as of this encounter Visit Diagnoses Diagnosis No-show for appointment- Primary documented in this encounter Advance Directives Documents on File Type Date Recorded Patient Rhinologist Expl anation Advanced Directive service a kerri [...]
--- OUTSIDE RECORDS SUMMARY | 2023-05-10 21:52 | External Medical Summary | Summary of Care ---
Author Name Unknown Organization [facility] Address [facility] [place] [address] Care Team Providers Care Stand In Name Role Phone Alexandra Caceres Primary Care Provider [phone] Reason for Visit * Reason Comments Dosage Adjustment In Person (Anticoag Cl inic) Diabetes Follow-Up Encounter Details Date Type Department Care Team Description 08/31/2020 Office Visit Pharmacy, [place] [address] [place] [address] [place] [facility] [address] [place] [address] [phone] Type 2 diabetes mellitus with hemoglobin A1c goal of less than 7.0% ([facility])* Allergies Active Allergy Reactions Severity Noted [...] 120 Vial 11 10/02/2019 Active nystatin (NYSTOP) 831459 UNIT/GM powder Apply topically to affected area [...] g 0 05/26/2020 Active Continuous Blood Gluc Supervisor Cleaning And Annealing (FREESTYLE XOCHITL 2 READER SYSTM) KORTNEY Freestyle Xochitl 2 14-day Supervisor Cleaning And Annealing (925289) 1 Package 0 05/26/2020 Active famotidine (PEPCID) [...] Sensor Systm Freestyle Xochitl 2 14-day Sensor (090819) (2 sensors=28 day/1-month supply) 2 Each 1 [...] pain 01/24/2012 01/17/2017 Genetic Sleep Disorder Research Other*[id number] 05/13/2011 04/07/2016 Obstructive sleep apnea 01/18/2011 12/27/19 [...] or bathing? 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-psychotherapist helps 07/15/2020 Because of a physical, menta [...] this encounter Progress Notes * Indira Hudson, [facility] - 08/31/2020 2:36 PM EST Shaina Bustos, [...] sugars improving. Patient had Xochitl placed in [place]. Doing well with it but reports that sensor was damaged. Also reports having issues keeping it on arm. They will contact Xochitl to see if they can replace damaged sensor/sensor that was not working. Discussed with patient that we can have her place the sensor on her stomach, although not recommended via package insert, xochitl event sales representative says it can be done if [...] weeks Next Office Visit: 10/28/2020 Scheduled Provider(s): [facility] [place] Indira Hudson [facility] Clinical Pharmacist - Strap Cutting Machine Operator Medication Therapy Management Clinic 08/31/2020, 2:36 PM documented in this encounter Plan of Treatment Upcoming Encounters Date Type Specialty Care Team Description 09/01/2020 Nutrition Services Gastroenterology Melissa Omalley RDN [address] [facility] [place] [address] [phone] 09/03/2020 Imaging Radiology 09/15/2020 Office Visit Orthopedics Jayme Benz MD [address] [facility] [place] [address] 09/23/2020 Office Visit Gastroenterology Lyssa Stout CRNP [address] [facility] [place] [address] [phone] 10/02/2020 Telemedicine Endocrinology Alberta Duque PA-C [address] [place] [address] [phone] 10/28/2020 Office Visit [facility] [address] [place] [address] [phone] 11/30/2020 Office Visit Family Medicine Alexandra Caceres DO [address] [place] [address] [phone] Health Maintenance Due Date Last Done Comments [...] of this encounter Implants Implanted Type Area Electrogalvanizing Machine Operator Device Identifier Shelf Expiration Date Model / Serial / Lot Microtech Sure Clip Implanted:Qty: 2 on 06/03/2020 by Janis Hatch DO at OR [facility] Clip N/A: Colon 04/21/2022 [facility]-F-26-2 35-C-R / / [id number] documented as of this encounter Visit Diagnoses Diagnosis Type 2 diabetes mellitus with hemoglobin A1c goal of less than 7.0% (HCC)- Primary documented in this encounter Advance Directives Documents on File Type Date Recorded Patient Hydraulic Modeling Engineer Expl anation Advanced Directive service a [...]
--- OUTSIDE RECORDS SUMMARY | 2023-05-10 21:52 | External Medical Summary | Summary of Care ---
Author Name Unknown Organization [facility] Address [facility] [place] [address] Care Team Providers Care Mountain Bike Guide Name Role Phone Alexandra Caceres Primary Care Provider [phone] Reason for Visit * Reason Onset Date Comments COVID-19 Screening 08/28/2020 Encounter Details Date Type Department Care Team Description 08/28/2020 Telephone COVID19 Screening [facility] [address] [place] [address] [id number], Automated Provider COVID-19 Screening Allergies Active Allergy [...] 120 Vial 11 10/02/2019 Active nystatin (NYSTOP) 894229 UNIT/GM powder Apply topically to affected area [...] g 0 05/26/2020 Active Continuous Blood Gluc Conference Director (FREESTYLE XOCHITL 2 READER SYSTM) [place] Freestyle Xochitl 2 14-day Conference Director (110083) 1 Package 0 05/26/2020 Active famotidine (PEPCID) [...] Sensor Systm Freestyle Xochitl 2 14-day Sensor (822742) (2 sensors=28 day/1-month supply) 2 Each 1 [...] pain 01/24/2012 01/17/2017 Genetic Sleep Disorder Research Other*[id number] 05/13/2011 04/07/2016 Obstructive sleep apnea 01/18/2011 12/27/19 [...] or bathing? 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-computer tech helps 07/15/2020 Because of a physical, [...] * Telephone Encounter - Yaneth Poon - 08/28/2020 3:27 AM EST Outreach Attempts IVR Call Aug 27 2020 10:02AM Answered - Success Results COVID: Negative Flu: Negative RSV: Negative IVR Message: Cecy Merritt. Your tests from 08/21/2020 00:00:00 for COVID-19, Flu, and RSV all came back negative.This means you are NOT infected with any of these viruses. If your cold/flu symptoms last longer than 7 days or get worse, contact your primary care physician. If you don't have a primary care physician, [facility] the nearest [facility] or [facility] care clinic. To establish care with a [employer] provider, please call [phone]. Practice social distancing and good hand hygiene to keep yourself and others safe. Your results are also available for your reference in your TabUp account under 'Test & Lab Results.' If you are not enrolled in TabUp, you can create an account by going to [email or web address]. You will also receive a letter in the mail with your results. If you are a [employer] staff member or employee, when you receive your result, please call [facility] between 7 a.m. and 4 p.m. at [phone]. Notify them of your test results and for instructions on returning to work after your quarantine period. Press 1 if you would like to speak with a nurse, press 2 to hear this message again. documented in this encounter Plan of Treatment Upcoming Encounters Date Type Specialty Care Team Description 08/28/2020 Hem/Onc Treatment Hematology Oncology [place], Chair 11 Hem/Onc [address] [place] [address] [phone] 08/31/2020 Office Visit Pharmacy [facility] [address], [place] [id number] 09/01/2020 Nutrition Services Gastroenterology Melissa Omalley, SAMANTHA [address] [place] [address] [place] [id number] 09/03/2020 Imaging Radiology 09/15/2020 Office Visit Orthopedics Jayme Benz MD [address] [place] [address] 09/23/2020 Office Visit Gastroenterology Lyssa Stout CRNP [address] [place] [address] [phone] 10/02/2020 Telemedicine Endocrinology Alberta Duque PA-C [address] [place] [address] 11/30/2020 Office Visit Family Medicine Alexandra Caceres, [address] [place] [address] [phone] Health Maintenance Due Date Last Done Comments [...] this encounter Implants Implanted Type Area Project Lead Device Identifier Shelf Expiration Date Model / Serial / Lot Microtech Sure Clip Implanted:Qty: 2 on 06/03/2020 by Janis Hatch DO at OR [facility] Clip N/A: Colon 04/21/2022 [facility]-F-26-2 35-C-R / / [id number] documented as of this encounter Advance Directives Documents on File Type Date Recorded Patient Ladder Operator Expl anation Advanced Directive service a [...] File Name Relationship Healthcare Agent [facility] Communication Syed Bustos Spouse Emergency Contact
--- OUTSIDE RECORDS SUMMARY | 2023-05-10 21:53 | External Medical Summary | Summary of Care ---
Author Name Unknown Organization [facility] Address [place] [address] Care Team Providers Care Supervisor Sample Preparation Name Role Phone Alexandra Caceres Primary Care Provider [phone] Reason for Visit * Reason Onset Date Comments COVID-19 Screening 08/27/2020 Encounter Details Date Type Department Care Team Description 08/27/2020 Telephone COVID19 Screening [facility] [address] [place] [address] [id number], Automated Provider COVID-19 Screening Allergies Active Allergy [...] 120 Vial 11 10/02/2019 Active nystatin (NYSTOP) 938137 UNIT/GM powder Apply topically to affected area [...] g 0 05/26/2020 Active Continuous Blood Gluc Supply Chain Development Manager (FREESTYLE XOCHITL 2 READER SYSTM) [place] Freestyle Xochitl 2 14-day Supply Chain Development Manager (284673) 1 Package 0 05/26/2020 Active famotidine (PEPCID) [...] AT BEDTIME 30 Tab 2 08/12/2020 Active Continuous Blood Gluc Sensor (FREESTYLE XOCHITL 2 SENSOR SYSTM) [facility] Freestyle Xochitl 2 14-day Sensor (529823) (2 sensors=28 day/1-month supply) 2 Each 1 05/26/2020 0 Discontinue d(Refill) documented as of this encounter [...] pain 01/24/2012 01/17/2017 Genetic Sleep Disorder Research Other*[id number] 05/13/2011 04/07/2016 Obstructive sleep apnea 01/18/2011 12/27/19 [...] or bathing? 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-industrial diamond polisher helps 07/15/2020 Because of a physical, menta [...] Miscellaneous Notes * Telephone Encounter - Linda Vincent OSA - 08/27/2020 12:27 PM EST Patient called in, informed patient. No further questions. * Telephone Encounter - Yaneth Poon Results - 08/27/2020 3:43 AM EST Outreach Attempts Aug 26 2020 9:11AM - Fail to reach patient Results COVID: Negative Flu: Negative RSV: Negative IVR Message: Unsuccessful contact, no education provided documented in this encounter Plan of Treatment Upcoming Encounters Date Type Specialty Care Team Description 08/28/2020 Hem/Onc Treatment Hematology Oncology [place], Chair 11 Hem/Onc [address] [facility] [place] [address] [phone] 08/31/2020 Office Visit Pharmacy [facility] [address] [place], [place] [phone] 09/01/2020 Nutrition Services Gastroenterology Melissa Omalley RDN [address] [place] [address] [place] [id number] 09/03/2020 Imaging Radiology 09/15/2020 Office Visit Orthopedics Jayme Benz MD [address] [place] [address] [phone] 09/23/2020 Office Visit Gastroenterology Lyssa Stout CRNP [address] [facility] [place] [address] [phone] 10/02/2020 Telemedicine Endocrinology Alberta Duque PA-Niya [address] [place] [address] 11/30/2020 Office Visit Family Medicine Alexandra Caceres DO [address] [place], [place] 0603923 Health Maintenance Due Date Last Done Comments [...] of this encounter Implants Implanted Type Area Laundry Routeman Device Identifier Shelf Expiration Date Model / Serial / Lot Microtech Sure Clip Implanted:Qty: 2 on 06/03/2020 by Janis Hatch DO at OR [facility] Clip N/A: Colon 04/21/2022 [facility]-F-26-2 35-C-R / / [id number] documented as of this encounter Advance Directives Documents on File Type Date Recorded Patient Tax Audit Manager Expl anation Advanced Directive service a [...]
--- OUTSIDE RECORDS SUMMARY | 2023-05-10 21:53 | External Medical Summary | Summary of Care ---
Author Name Unknown Organization [facility] Address [facility] [place] [address] Care Team Providers Care Patient Case Coordinator Name Role Phone Alexandra Caceres Primary Care Provider [phone] Reason for Visit * Reason Onset Date Comments COVID-19 Screening 08/27/2020 Encounter Details Date Type Department Care Team Description 08/27/2020 Telephone COVID19 Screening [facility] [address] [place] [address] [id number], Automated Provider COVID-19 Screening Allergies Active Allergy [...] 120 Vial 11 10/02/2019 Active nystatin (NYSTOP) 316450 UNIT/GM powder Apply topically to affected area [...] g 0 05/26/2020 Active Continuous Blood Gluc Sensor (FREESTYLE XOCHITL 2 SENSOR SYSTM) [facility] Freestyle Xochitl 2 14-day Sensor (810627) (2 sensors=28 day/1-month supply) 2 Each 1 05/26/2020 Active Continuous Blood Gluc Flying Teacher (FREESTYLE XOCHITL 2 READER SYSTM) [place] Freestyle Xochitl 2 14-day Flying Teacher (787248) 1 Package 0 05/26/2020 Active famotidine (PEPCID) [...] AT BEDTIME 30 Tab 2 08/12/2020 Active documented as of this encounter (statuses [...] pain 01/24/2012 01/17/2017 Genetic Sleep Disorder Research Other*[id number] 05/13/2011 04/07/2016 Obstructive sleep apnea 01/18/2011 12/27/19 [...] or bathing? 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-water carter helps 07/15/2020 Because of a physical, menta [...] Team Description 08/28/2020 Hem/Onc Treatment Hematology Oncology [place], Chair 11 Hem/Onc [address] [place] [facility] [place] [address] [phone] 08/31/2020 Office Visit Pharmacy [address] [address] [phone] 09/01/2020 Nutrition Services Gastroenterology Melissa Omalley RDN [address] [facility] [address] [address] [place] [address] [phone] 09/03/2020 Imaging Radiology 09/15/2020 Office Visit Orthopedics Jayme Benz MD [address] [place] [facility] [place] [address] 09/23/2020 Office Visit Gastroenterology Lyssa Stout CR[facility] [address] [facility] [address] [phone] 10/02/2020 Telemedicine Endocrinology Alberta Duque PA-C [address] [facility] [place] [address] 11/30/2020 Office Visit Family Medicine Alexandra Caceres DO [address] [place] [address] [phone] Health Maintenance Due Date Last Done Comments [...] of this encounter Implants Implanted Type Area Heat Plant Specialist Device Identifier Shelf Expiration Date Model / Serial / Lot Microtech Sure Clip Implanted:Qty: 2 on 06/03/2020 by Janis Hatch DO at OR [facility] Clip N/A: Colon 04/21/2022 [facility]-F-26-2 35-C-R / / [id number] documented as of this encounter Advance Directives Documents on File Type Date Recorded Patient Gift Officer Expl anation Advanced Directive service a [...] Agents on File Name Relationship Healthcare Agent [facility] Communication Syed Bustos Spouse Emergency Contact
--- OUTSIDE RECORDS SUMMARY | 2023-05-10 21:53 | External Medical Summary | Summary of Care ---
Author Name Unknown Organization [place] [address] Care Team Providers Care Solar Sales Associate Name Role Phone Maikel Caceres DO Primary Care Provider Reason for Visit * Reason Onset Date Comments Medication Refill 08/25/2020 Encounter Details Date Type Department Care Team Description 08/25/2020 Refill [place] [address] [place] [address] Maikel Caceres DO [address] [place] [address] [phone] Allergies Active Allergy Reactions Severity Noted Date [...] 120 Vial 11 10/02/2019 Active nystatin (NYSTOP) 726250 UNIT/GM powder Apply topically to affected area [...] g 0 05/26/2020 Active Continuous Blood Gluc Traffic Engineering Director (FREESTYLE XOCHITL 2 READER SYSTM) [place] Freestyle Xochitl 2 14-day Traffic Engineering Director (317488) 1 Package 0 05/26/2020 Active famotidine (PEPCID) [...] Sensor Systm Freestyle Xochitl 2 14-day Sensor (980774) (2 sensors=28 day/1-month supply) 2 Each 1 08/27/2020 Active Continuous Blood Gluc Sensor (FREESTYLE XOCHITL 2 SENSOR SYSTM) [facility] Freestyle Xochitl 2 14-day Sensor (982048) (2 sensors=28 day/1-month supply) 2 Each 1 [...] pain 01/24/2012 01/17/2017 Genetic Sleep Disorder Research Other*[id number] 05/13/2011 04/07/2016 Obstructive sleep apnea 01/18/2011 12/27/19 [...] or bathing? 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-retail office associate helps 07/15/2020 Because of a physical, menta [...] Miscellaneous Notes * Telephone Encounter - Hayden Grimes RPh - 08/27/2020 5:36 AM EST Signed Prescriptions: Disp Refills FreeStyle Xochitl 2 Sensor Systm 2 Each 1 Sig: Freestyle Xochitl 2 14-day Sensor (813689) (2 sensors=28 day/1-month supply) Authorizing Provider: MAIKEL CACERES User: HAYDEN GRIMES * Telephone Encounter - Hoa Flores, brass chaser - 08/25/2020 12:11 PM EST Pending Prescriptions: Disp Refills FreeStyle Xochitl 2 Sensor Systm 2 Each 1 Sig: Freestyle Xochitl 2 14-day Sensor (222663) (2 sensors=28 day/1-month supply) Last Office/Telemedicine Visit: 08/19/2020 Next Office Visit: 08/26/2020 Scheduled Provider(s): Maikel Caceres, DO If no future appointments scheduled, and last appointment is greater than a year ago, please schedule patient for a follow-up appointment Last date the medication was ordered: 05/26/2020 Pharmacy: [facility] # [facility] [place] [address] [facility] Is this request for a controlled substance?No Urine Drug Screen:No results found. However, due to the size of the patient record, not all encounters were searched. Please check Results Review for a complete set of results. Patient Phone Numbers Labs: Lab Results Component Value Date/Time CREAT 0.7 08/21/2020 04:35 PM POTASSIUM 4.1 08/21/2020 04:35 PM TSH 0.69 07/14/2020 04:24 PM LDLCALC 43 04/05/2019 06:40 AM LDLDIRECT 46 02/21/2020 11:43 AM ALT 23 08/21/2020 04:35 PM HGBA1C 9.9 (H) 07/06/2020 05:24 AM documented in this encounter Plan of Treatment Upcoming Encounters Date Type Specialty Care Team Description 08/28/2020 Hem/Onc Treatment Hematology Oncology [place], [facility] 11 Hem[facility]Onc [address] [facility] [id number] 08/31/2020 Office Visit Pharmacy [facility] [address] [place], [place] [address] 09/01/2020 Nutrition Services Gastroenterology Melissa Omalley RDN [address] [facility] [address] [place] [address] 09/03/2020 Imaging Radiology 09/15/2020 Office Visit Orthopedics Jayme Benz MD [address] [facility] [place] [id number] 09/23/2020 Office Visit Gastroenterology Lyssa Stout, ZAK [address] [place] [address] [phone] 10/02/2020 Telemedicine Endocrinology Alberta Duque PA-C [address] [place] [address] [phone] 11/30/2020 Office Visit Family Medicine Maikel Caceres, DO [address], [place] 4391623 Health Maintenance Due Date Last Done Comments [...] of this encounter Implants Implanted Type Area Meteorology Teacher Device Identifier Shelf Expiration Date Model / Serial / Lot Microtech Sure Clip Implanted:Qty: 2 on 06/03/2020 by Janis Hatch DO at OR [facility] Clip N/A: Colon 04/21/2022 [facility]-F-26-2 35-C-R / / [id number] documented as of this encounter Advance Directives Documents on File Type Date Recorded Patient Bpm Developer Expl anation Advanced Directive service a [...]
--- OUTSIDE RECORDS SUMMARY | 2023-05-10 21:54 | External Medical Summary | Summary of Care ---
Author Name Unknown Organization [facility] Address [facility] [place] [address] Care Team Providers Care Certified Nurses' Aide Name Role Phone Alexandra Caceres Primary Care Provider [phone] Reason for Visit * Reason Onset Date Comments COVID-19 Screening 08/23/2020 Encounter Details Date Type Department Care Team Description 08/23/2020 Telephone COVID19 Screening [facility] [address] [place] [address] [id number], Automated Provider COVID-19 Screening Allergies Active Allergy Reactions Severity Noted Date Comments Adhesive Tape Itching 04/29/2020 Penicillins Rash 02/12/2008 Perflutren Protein A Microsph 2019 Definity-lower back pain documented as of this encounter (statuses as of 08/23/2020) Medications Medication Sig Dispensed Refills Start Date [...] 120 Vial 11 10/02/2019 Active nystatin (NYSTOP) 826981 UNIT/GM powder Apply topically to affected area [...] Gluc Sensor (FREESTYLE XOCHITL 2 SENSOR SYSTM) [facility] Freestyle Xochitl 2 14-day Sensor (798493) (2 sensors=28 day/1-month supply) 2 Each 1 05/26/2020 Active Continuous Blood Gluc Director Physical Therapy (FREESTYLE XOCHITL 2 READER SYSTM) [place] Freestyle Xochitl 2 14-day Director Physical Therapy (998280) 1 Package 0 05/26/2020 Active famotidine (PEPCID) [...] as of this encounter (statuses as of 08/23/2020) Active Problems Problem Noted Date Uncontrolled type [...] as of this encounter (statuses as of 08/23/2020) Resolved Problems Problem Noted Date Resolved Date [...] pain 01/24/2012 01/17/2017 Genetic Sleep Disorder Research Other*[id number] 05/13/2011 04/07/2016 Obstructive sleep apnea 01/18/2011 12/27/19 [...] as of this encounter (statuses as of 08/23/2020) Immunizations Name Administration Dates Next Due HEP [...] or bathing? 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-online content editor helps 07/15/2020 Because of a physical, [...] Telephone Encounter - Yaneth Poon Results - 08/23/2020 12:50 PM EST Outreach Attempts Aug 22 2020 9:20AM - Fail to reach patient Results COVID: Negative Flu: Negative RSV: Negative IVR Message: Unsuccessful contact, no education provided documented in this encounter Plan of Treatment Upcoming Encounters Date Type Specialty Care Team Description 08/28/2020 Hem/Onc Treatment Hematology Oncology [place], Chair 11 Hem/Onc [address] [place] [facility] [place] [address] [phone] 08/31/2020 Office Visit Pharmacy [address] [address] [phone] 09/01/2020 Nutrition Services Gastroenterology Melissa Omalley RDN [address] [facility] [address] [place] [address] [phone] 09/03/2020 Imaging Radiology 09/15/2020 Office Visit Orthopedics Jayme Benz MD [address] [place] [facility] [place] [address] 09/23/2020 Office Visit Gastroenterology Lsysa Stout CRNP [address] [facility] [address] [phone] 10/02/2020 Telemedicine Endocrinology Alberta Duque PA-C [address] [facility] [place] [address] Health Maintenance Due Date Last Done [...] of this encounter Implants Implanted Type Area Maint Mechanic Device Identifier Shelf Expiration Date Model / Serial / Lot Microtech Sure Clip Implanted:Qty: 2 on 06/03/2020 by Janis Hatch DO at OR [facility] Clip N/A: Colon 04/21/2022 [facility]-F-26-2 35-C-R / / [id number] documented as of this encounter Advance Directives Documents on File Type Date Recorded Patient Can Filler Expl anation Advanced Directive service a [...]
--- OUTSIDE RECORDS SUMMARY | 2023-05-10 21:54 | External Medical Summary | Summary of Care ---
Author Name Unknown Organization [facility] Address [facility] [place] [address] Care Team Providers Care Financial Supervisor Name Role Phone Alexandra Caceres Primary Care Provider [phone] Reason for Visit * Reason Onset Date Comments COVID-19 Screening 08/26/2020 Encounter Details Date Type Department Care Team Description 08/26/2020 Telephone COVID19 Screening [facility] [address] [place] [address] 986313, Automated Provider COVID-19 Screening Allergies Active Allergy Reactions Severity Noted Date Comments Adhesive Tape Itching 04/29/2020 Penicillins Rash 02/12/2008 Perflutren Protein A Microsph 2019 Definity-lower back pain documented as of this encounter (statuses as of 08/26/2020) Medications Medication Sig Dispensed Refills Start Date [...] 120 Vial 11 10/02/2019 Active nystatin (NYSTOP) 753224 UNIT/GM powder Apply topically to affected area [...] Gluc Sensor (FREESTYLE XOCHITL 2 SENSOR SYSTM) [facility] Freestyle Xochitl 2 14-day Sensor (839264) (2 sensors=28 day/1-month supply) 2 Each 1 05/26/2020 Active Continuous Blood Gluc Hot Box Checker (FREESTYLE XOCHITL 2 READER SYSTM) [place] Freestyle Xochitl 2 14-day Hot Box Checker (493250) 1 Package 0 05/26/2020 Active famotidine (PEPCID) [...] as of this encounter (statuses as of 08/26/2020) Active Problems Problem Noted Date Uncontrolled type [...] as of this encounter (statuses as of 08/26/2020) Resolved Problems Problem Noted Date Resolved Date [...] pain 01/24/2012 01/17/2017 Genetic Sleep Disorder Research Other*[id number] 05/13/2011 04/07/2016 Obstructive sleep apnea 01/18/2011 12/27/19 [...] as of this encounter (statuses as of 08/26/2020) Immunizations Name Administration Dates Next Due HEP [...] or bathing? 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-model and mold maker plaster helps 07/15/2020 Because of a physical, menta [...] * Telephone Encounter - Yaneth Poon - 08/26/2020 5:47 AM EST Outreach Attempts IVR Call Aug 25 2020 9:53AM Voicemail - Voicemail Results COVID: Negative Flu: Negative RSV: Negative IVR Message: Cecy Merritt. This is [employer] calling to let you know you have test results available. You can access this result in your Emotify account under 'Test & Lab Results'. If you are not enrolled in Emotify, you can create an account by going to [email or web address]. You can also call back at [phone] or we will attempt to reach you later today. documented in this encounter Plan of Treatment Upcoming Encounters Date Type Specialty Care Team Description 08/26/2020 Telemedicine Family Medicine Alexandra Caceres DO [address] [place] [address] [phone] 08/28/2020 Hem/Onc Treatment Hematology Oncology [place], Chair 11 Hem/Onc [address] [facility] [place] [address] 08/31/2020 Office Visit Pharmacy [facility] [address] [place] [address] [phone] 09/01/2020 Nutrition Services Gastroenterology Melissa Omalley, RDN [address] [place] [address] [place] [address] [phone] 09/03/2020 Imaging Radiology 09/15/2020 Office Visit Orthopedics Jayme Benz MD [address] [place] [address] 09/23/2020 Office Visit Gastroenterology Lyssa Stout CRNP [address] [facility] [place] [address] 10/02/2020 Telemedicine Endocrinology Alberta Duque PA-C [address] [place] [address] 11/30/2020 Office Visit Family Medicine Alexandra Caceres, [address] [place] [address] Health Maintenance Due Date Last Done Comments [...] of this encounter Implants Implanted Type Area Quarry Boss Device Identifier Shelf Expiration Date Model / Serial / Lot Microtech Sure Clip Implanted:Qty: 2 on 06/03/2020 by Janis Hatch DO at OR [facility] Clip N/A: Colon 04/21/2022 [facility]-F-26-2 35-C-R / / [id number] documented as of this encounter Advance Directives Documents on File Type Date Recorded Patient Structural Steel Engineer Expl anation Advanced Directive service a [...]
--- OUTSIDE RECORDS SUMMARY | 2023-05-10 21:54 | External Medical Summary | Summary of Care ---
Author Name Unknown Organization [facility] Address [facility] [place] [address] Care Team Providers Care Php Engineer Name Role Phone Alexandra Caceres Primary Care Provider Reason for Visit * Reason Onset Date Comments COVID-19 Screening 08/25/2020 Encounter Details Date Type Department Care Team Description 08/25/2020 Telephone COVID19 Screening [facility] [address] [place] [phone], Automated Provider COVID-19 Screening Allergies Active Allergy Reactions Severity Noted Date Comments Adhesive Tape Itching 04/29/2020 Penicillins Rash 02/12/2008 Perflutren Protein A Microsph 2019 Definity-lower back pain documented as of this encounter (statuses as of 08/25/2020) Medications Medication Sig Dispensed Refills Start Date [...] 120 Vial 11 10/02/2019 Active nystatin (NYSTOP) 416911 UNIT/GM powder Apply topically to affected area [...] Sensor (FREESTYLE XOCHITL 2 SENSOR SYSTM) [facility] [place] Xochitl 2 14-day Sensor (536224) (2 sensors=28 day/1-month supply) 2 Each 1 05/26/2020 Active Continuous Blood Gluc Hand Hardener (FREESTYLE XOCHITL 2 READER SYSTM) [place] Freestyle Xochitl 2 14-day Hand Hardener (955365) 1 Package 0 05/26/2020 Active famotidine (PEPCID) [...] as of this encounter (statuses as of 08/25/2020) Active Problems Problem Noted Date Uncontrolled type [...] as of this encounter (statuses as of 08/25/2020) Resolved Problems Problem Noted Date Resolved Date [...] pain 01/24/2012 01/17/2017 Genetic Sleep Disorder Research Other*[id number] 05/13/2011 04/07/2016 Obstructive sleep apnea 01/18/2011 12/27/19 [...] as of this encounter (statuses as of 08/25/2020) Immunizations Name Administration Dates Next Due HEP [...] or bathing? 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-rn midwife helps 07/15/2020 Because of a physical, menta [...] Telephone Encounter - Yaneth Poon Results - 08/25/2020 2:02 PM EST Outreach Attempts Aug 24 2020 9:29AM - Fail to reach patient Results COVID: Negative Flu: Negative RSV: Negative IVR Message: Unsuccessful contact, no education provided documented in this encounter Plan of Treatment Upcoming Encounters Date Type Specialty Care Team Description 08/26/2020 Telemedicine Family Medicine Alexandra Caceres DO [address] [place] [address] [phone] 08/28/2020 Hem/Onc Treatment Hematology Oncology [place], Chair 11 Hem/Onc [address] [place] [address] [phone] 08/31/2020 Office Visit Pharmacy [facility] [address] [place] [address] [phone] 09/01/2020 Nutrition Services Gastroenterology Melissa Omalley RDN 310 [facility] [address] [place] [address] [phone] 09/03/2020 Imaging Radiology 09/15/2020 Office Visit Orthopedics Jayme Benz MD [address] [place], [place] [id number] 09/23/2020 Office Visit Gastroenterology Lyssa Stout, BONING ROOM WORKER [address] [facility] [place] [address] [phone] 10/02/2020 Telemedicine Endocrinology Alberta Duque PA-C [address] [place] [address] [phone] 11/30/2020 Office Visit Family Medicine Alexandra Caceres, [address] [place] [address] [phone] Health Maintenance Due Date Last Done Comments [...] this encounter Implants Implanted Type Area Health Care Coordinator Device Identifier Shelf Expiration Date Model / Serial / Lot Microtech Sure Clip Implanted:Qty: 2 on 06/03/2020 by Janis Hatch DO at OR [facility] Clip N/A: Colon 04/21/2022 [facility]-F-26-2 35-C-R / / [id number] documented as of this encounter Advance Directives Documents on File Type Date Recorded Patient Sewer Builder Expl anation Advanced Directive service a kerri [...]
--- OUTSIDE RECORDS SUMMARY | 2023-05-10 21:54 | External Medical Summary | Summary of Care ---
Author Name Unknown Organization [facility] Address [facility] [place] [address] Care Team Providers Care Acquisition Marketing Manager Name Role Phone Alexandra Caceres Primary Care Provider [phone] Reason for Visit * Reason Onset Date Comments COVID-19 Screening 08/24/2020 Encounter Details Date Type Department Care Team Description 08/24/2020 Telephone COVID19 Screening [facility] [address] [place] [address] [phone], Automated Provider COVID-19 Screening Allergies Active Allergy Reactions Severity Noted Date Comments Adhesive Tape Itching 04/29/2020 Penicillins Rash 02/12/2008 Perflutren Protein A Microsph 2019 Definity-lower back pain documented as of this encounter (statuses as of 08/24/2020) Medications Medication Sig Dispensed Refills Start Date [...] 120 Vial 11 10/02/2019 Active nystatin (NYSTOP) 012390 UNIT/GM powder Apply topically to affected area [...] Gluc Sensor (FREESTYLE XOCHITL 2 SENSOR SYSTM) [facility] Xochitl 2 14-day Sensor (469438) (2 sensors=28 day/1-month supply) 2 Each 1 05/26/2020 Active Continuous Blood Gluc Machine Operator Hop Worker (FREESTYLE XOCHITL 2 READER SYSTM) [place] Freestyle Xochitl 2 14-day Machine Operator Hop Worker (761269) 1 Package 0 05/26/2020 Active famotidine (PEPCID) [...] as of this encounter (statuses as of 08/24/2020) Active Problems Problem Noted Date Uncontrolled type [...] as of this encounter (statuses as of 08/24/2020) Resolved Problems Problem Noted Date Resolved Date [...] pain 01/24/2012 01/17/2017 Genetic Sleep Disorder Research Other*[id number] 05/13/2011 04/07/2016 Obstructive sleep apnea 01/18/2011 12/27/19 [...] as of this encounter (statuses as of 08/24/2020) Immunizations Name Administration Dates Next Due HEP [...] bathing? 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-home restoration service cleaner helps 07/15/2020 Because of a physical, menta [...] Telephone Encounter - Yaneth Poon Results - 08/24/2020 1:30 PM EST Outreach Attempts Aug 23 2020 9:30AM - Fail to reach patient Results COVID: Negative Flu: Negative RSV: Negative IVR Message: Unsuccessful contact, no education provided documented in this encounter Plan of Treatment Upcoming Encounters Date Type Specialty Care Team Description 08/28/2020 Hem/Onc Treatment Hematology Oncology [place], Chair 11 Hem/Onc [address] [facility] [place] [address] [phone] 08/31/2020 Office Visit Pharmacy [address] [address] [phone] 09/01/2020 Nutrition Services Gastroenterology Melissa Omalley RDN [address] [facility] [place] [address] [place] [address] [phone] 09/03/2020 Imaging Radiology 09/15/2020 Office Visit Orthopedics Jayme Benz MD [address] [place] [facility] [place] [address] 09/23/2020 Office Visit [facility]astroenterology Lyssa Stout [facility] [address] [phone] 10/02/2020 Telemedicine Endocrinology Alberta Duque PA-C [address] [facility] [place] [address] Health Maintenance Due Date [...] of this encounter Implants Implanted Type Area Fish Straightener Device Identifier Shelf Expiration Date Model / Serial / Lot Microtech Sure Clip Implanted:Qty: 2 on 06/03/2020 by Janis Hatch DO at OR [facility] Clip N/A: Colon 04/21/[address] [facility]-F-26-2 35-C-R / / [id number] documented as of this encounter Advance Directives Documents on File Type Date Recorded Patient Protection Specialist Expl anation Advanced Directive service a [...]
--- OUTSIDE RECORDS SUMMARY | 2023-05-10 21:54 | External Medical Summary | Summary of Care ---
Author Name Unknown Organization [facility] Address [place] [address] Care Team Providers Care Fork Truck Operator Name Role Phone Alexandra Caceres DO Primary Care Provider Encounter Details Date Type Department Care Team Description 08/24/2020 Telephone [facility] [address] [place] [address] Alexandra Caceres DO [address], [place] [phone] Allergies Active Allergy Reactions Severity Noted Date [...] 120 Vial 11 10/02/2019 Active nystatin (NYSTOP) 810316 UNIT/GM powder Apply topically to affected area [...] SYSTM) MISC Freestyle Xochitl 2 14-day Sensor (086807) (2 sensors=28 day/1-month supply) 2 Each 1 05/26/2020 Active Continuous Blood Gluc Manager Games (FREESTYLE XOCHITL 2 READER SYSTM) [place] Freestyle Xochitl 2 14-day Manager Games (463715) 1 Package 0 05/26/2020 Active famotidine (PEPCID) [...] pain 01/24/2012 01/17/2017 Genetic Sleep Disorder Research Other*[id number] 05/13/2011 04/07/2016 Obstructive sleep apnea 01/18/2011 12/27/19 [...] or bathing? 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-rubber attacher helps 07/15/2020 Because of a physical, menta [...] Telephone Encounter - Tamara Fabian LPN - 08/25/2020 9:13 AM EST Noted. Scheduled for 08/26/[address] Caceres * Telephone Encounter - Deepali Ortiz OSA - 08/24/2020 10:43 AM EST Patient was seen in ED. Please see call details. documented in this encounter Plan of Treatment Upcoming Encounters Date Type Specialty Care Team Description 08/26/2020 Telemedicine Family Medicine Alexandra Caceres DO [address], [place] [phone] 08/28/2020 Hem/Onc Treatment Hematology Oncology [place], Chair 11 Hem/Onc [address] [place] [address] 08/31/2020 Office Visit Pharmacy [facility] [address] [place] [address] [phone] 09/01/2020 Nutrition Services Gastroenterology Melissa Omalley RDN 310 [facility] [address] [facility] [place] [address] [phone] 09/03/2020 Imaging Radiology 09/15/2020 Office Visit Orthopedics Jayme Benz MD [address] [place] [address] 09/23/2020 Office Visit Gastroenterology Lyssa Stout CRNP 132 [facility] [place] [address] [phone] 10/02/2020 Telemedicine Endocrinology Alberta Duque PA-C [address] [place] [address] 11/30/2020 Office Visit Family Medicine Alexandra Caceres, [address] [place], [place] [phone] Health Maintenance Due Date Last Done Comments [...] of this encounter Implants Implanted Type Area Geoscience Professor Device Identifier Shelf Expiration Date Model / Serial / Lot Microtech Sure Clip Implanted:Qty: 2 on 06/03/2020 by Janis Hatch DO at OR [facility] Clip N/A: Colon 04/21/2022 [facility]-F-26-2 35-C-R / / [id number] documented as of this encounter Advance Directives Documents on File Type Date Recorded 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
--- OUTSIDE RECORDS SUMMARY | 2023-05-10 21:55 | External Medical Summary ---
Author Name Unknown Address [facility] [place] [address] Phone Organization K01:[place] [address] [address] [facility] [place] [address] Laboratory Report Ordering Provider Test Date Status ROD TIM 08/21/2020 20:54:00 Final Observation Date Value Abnormality Reference (Units ) Status Troponin T 08/21/2020 21:35 12 0-14 (ng/L) Final Performing Location [address] [address]
--- OUTSIDE RECORDS SUMMARY | 2023-05-10 21:55 | External Medical Summary | Summary of Care ---
Author Name Unknown Organization [place] [address] Care Team Providers Care Rental Boats Caretaker Name Role Phone Alexandra Caceres Primary Care Provider [phone] Reason for Visit * Reason Comments Chest Pain Encounter Details Date Type Department Care Team Description 08/21/2020 Office Visit Hematology Oncology [facility] [address] [place] [address] Carlee Ley PA-C [address] [place] [address] Iron deficiency anemia due to chronic blood loss*; Chest pain, unspecified type Allergies Active Allergy Reactions Severity Noted Date Comments Adhesive Tape Itching 04/29/2020 Penicillins Rash 02/12/2008 Perflutren Protein A Microsph 2019 Definity-lower back pain documented as of this encounter (statuses as of 08/21/2020) Medications Medication Sig Dispensed Refills Start Date [...] 120 Vial 11 10/02/2019 Active nystatin (NYSTOP) 094185 UNIT/GM powder Apply topically to affected area [...] SYSTM) MISC Freestyle Xochitl 2 14-day Sensor (879988) (2 sensors=28 day/1-month supply) 2 Each 1 05/26/2020 Active Continuous Blood Gluc Websphere Commerce Consultant (FREESTYLE XOCHITL 2 READER SYSTM) [place] Freestyle Xochitl 2 14-day Websphere Commerce Consultant (639711) 1 Package 0 05/26/2020 Active famotidine (PEPCID) [...] as of this encounter (statuses as of 08/21/2020) Active Problems Problem Noted Date Uncontrolled type [...] as of this encounter (statuses as of 08/21/2020) Resolved Problems Problem Noted Date Resolved Date [...] pain 01/24/2012 01/17/2017 Genetic Sleep Disorder Research Other*[id number] 05/13/2011 04/07/2016 Obstructive sleep apnea 01/18/2011 12/27/19 [...] as of this encounter (statuses as of 08/21/2020) Immunizations Name Administration Dates Next Due HEP [...] Reading Time Taken Comments Blood Pressure 104/64 08/21/2020 3:37 PM EST Pulse 73 08/21/2020 3:37 PM EST Temperature - - Respiratory Rate 20 08/21/2020 3:37 PM EST Oxygen Saturation 94% 08/21/2020 3:37 PM EST Inhaled Oxygen Concentration - - [...] or bathing? 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-environmental permitting specialist helps 07/15/2020 Because of a physical, [...] as of this encounter Progress Notes * Carlee Ley PA-C - 08/21/2020 3:05 PM EST Hematology/Oncology Outpatient Clinic note [facility] [place] [address] Name: Shaina Bustos Date: 08/21/2020 CHIEF COMPLAINT: Shaina Bustos is a 65 year old female patient of Dr. Sanchez here today for acute visit. HISTORY OF PRESENT ILLNESS: Oncology history from patient chart, confirmed with patient. From the note of Zelda CRESPO 07/13/2020. DIAGNOSIS: -pancytopenia related to underlying cirrhosis of liver and splenomegaly -iron deficiency anemia. DIAGNOSTIC WORKUP: She is referred to hematology for evaluation of the anemia, I I reviewed her medical records, also reviewed her medical records from [facility]. She has underlying cirrhosis of liver, has evidence of iron deficiency for the last 1 year, Ferritin level was less than 10 earlier in December 2018, she was on oral iron replacement therapy once a day,lately increase to twice a day. She was admitted at [facility] in November 2019, she received 1 to [...] a day -IV Venofer every 2 weeks x 2 doses (08/07/2020- 08/21/2020) INTERVAL HISTORY: Shaina Bustos is a 65 year old female with a history as outlined above. Currently here for acute visit today. In review of patient's chart, she presented today for Venofer though noted chest pain and was added for an acute visit. Per patient, she has been experiencing central pressure-like chest pain with radiation to right shoulder x 20 minutes. She states she feels as if someone is sitting on her chest- 8/10. She also notes an associated doom sensation, shortness of breath, and headache- no diaphoresis. Upon questioning, she states she has had chest pain prior but never like this. Vital signs are stable. BG 217. EKG ordered. Review of patient's allergies indicates: Allergen Reactions [...] bedtime. 34 Tab 0 Continuous Blood Gluc Websphere Commerce Consultant (FREESTYLE XOCHITL 2 READER SYSTM) [place] Freestyle Xochitl 2 14-day Websphere Commerce Consultant (985707) 1 Package 0 Continuous Blood Gluc Sensor (FREESTYLE XOCHITL 2 SENSOR SYSTM) MISC Freestyle Xochitl 2 14-day Sensor (684653) (2 sensors=28 day/1-month supply) 2 Each 1 [...] With spacer 16 g 1 nystatin (NYSTOP) 689140 UNIT/GM powder Apply topically to affected area [...] less than 7.0% ([facility]) 09/26/2013 ICD-10 update of inactive term REVIEW OF SYSTEMS: Performance Status: Abnormal - ECOG 3-4 Constitutional: Abnormal - See HPI. No Fever, chills, night sweats, or weight loss Eyes: Normal - No change in visual acuity, blurred or double vision Ears, Nose, Sinuses: Normal - No epistaxis, facial pain, nasal discharge or change in hearing Mouth, Pharynx: Normal - No pain, ulceration, or sores noted Cardiovascular: Abnormal -See HPI. Respiratory: Abnormal - See HPI. No cough, hemoptysis, or pleuritic chest pain Gastrointestinal: Normal - No abdominal pain, nausea, vomiting, diarrhea, rectal pain or bleeding Genitourinary: Normal - Denies Hematuria or dysuria Musculoskeletal: Normal - No bone pain Skin: Normal - No skin rash or lesions noted Neurologic: Abnormal - See HPI. No numbness, weakness, neuropathic pain or change in cognitive function Hematologic: Normal - No bleeding or lymph nodes noted OBJECTIVE: Filed Vitals: 08/21/20 1537 BP: 104/64 Pulse: 73 Resp: 20 SpO2: 94% Wt Readings from Last 5 Encounters: 08/07/20 119.7 kg (264 lb) 08/05/20 119.7 kg (264 lb) 07/23/20 119.7 kg (264 lb) 07/21/20 121.1 kg (267 lb) 07/16/20 122.6 kg (270 lb 4.5 oz) PHYSICAL EXAM: General Appearance: Normal - [...] S1, S2, no appreciable murmurs, rubs, gallops. Chest pain non-reproducible on exam. Pulses/Extremities: Normal - 2+ throughout and symmetrical, no edema Abdomen: Normal - Soft, nontender, bowel sounds present, no appreciable hepatosplenomegaly, no palpable masses Musculoskeletal: Normal - No pain on palpation over bony prominence, no joint or bony deformity Neurologic: Normal - Grossly intact Psyche: No vegetative signs of depression. LABS: BG 217. IMPRESSION/PLAN: Iron Deficiency Anemia Chest Pain Patient noting the above symptoms prior to starting transfusion concerning for cardiac etiology of chest pain. Stat EKG preformed and no evidence of STEMI noted. BG 217. Most recent echo reviewed. EMS activated via nursing, patient to be evaluted in ER- requires cardiac enzymes, telemetry, and possible cardiology consult. Transfer Center contacted- case discussed with Dr. Mayers. Nursing to notify patient's . [place] Text sent to Dr. Sanchez with update. RTC in 1 week to receive Venofer- Rx 2. Carlee Ley PA-C documented in this encounter Plan of Treatment Upcoming Encounters Date Type Specialty Care Team Description 08/31/2020 Office Visit Pharmacy [facility] [address] [facility] [place] [phone] 09/01/2020 Nutrition Services Gastroenterology Melissa Omalley RDN [address] [facility] [address] [place] [id number] 09/03/2020 Imaging Radiology 09/15/2020 Office Visit Orthopedics [facility] Benz MD [address] [facility] [place] [address] [phone] 09/23/2020 Office Visit Gastroenterology Lyssa Stout CRNP [address] [facility] [place] [address] [phone] 10/02/2020 Telemedicine Endocrinology Alberta Duque PA-C [address] [facility] [place] [address] Health Maintenance Due Date Last Done [...] of this encounter Implants Implanted Type Area Brand Marketing Manager Device Identifier Shelf Expiration Date Model / Serial / Lot Microtech Sure Clip Implanted:Qty: 2 on 06/03/2020 by Janis Hatch DO at OR [facility] Clip N/A: Colon 04/21/2022 [facility]-F-26-2 35-C-R / / [id number] documented as of this encounter Procedures Procedure Name Priority Date/Time Associated Diagnosis Comments GLUCOSE METER STAT STRIP Routine 08/21/2020 3:17 PM EST documented in this encounter Results * GLUCOSE METER STAT STRIP (08/21/2020 3:17 PM EST) GLUCOSE METER 217(H) 70 - 120 mg/dL [facility] GLUCOSE COMMENT Notified Provider [facility] Specimen [facility] [address] [place] [address] documented in this encounter Visit Diagnoses Diagnosis Iron deficiency anemia due to chronic blood loss- Primary Iron deficiency anemia secondary to blood loss (chronic) Chest pain, unspecified type documented in this encounter Advance Directives Documents on File Type Date Recorded 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
--- OUTSIDE RECORDS SUMMARY | 2023-05-10 21:55 | External Medical Summary | Summary of Care ---
Author Name Unknown Organization [place] [address] Care Team Providers Care Rounding Machine Operator Name Role Phone Alexandra Caceres Primary Care Provider [phone] Reason for Visit * Reason Comments Chest Pain Encounter Details Date Type Department Care Team Description 08/21/2020 Office Visit Hematology Oncology [facility], [place] [address] [place] [address] Carlee Ley PA-C [address] [place] [address] Iron deficiency anemia due to [...] 120 Vial 11 10/02/2019 Active nystatin (NYSTOP) 608462 UNIT/GM powder Apply topically to affected area [...] SYSTM) MISC Freestyle Xochitl 2 14-day Sensor (189226) (2 sensors=28 day/1-month supply) 2 Each 1 05/26/2020 Active Continuous Blood Gluc Rope Twisting Machine Operator (FREESTYLE XOCHITL 2 READER SYSTM) KORTNEY Freestyle Xochitl 2 14-day Rope Twisting Machine Operator ([id number]) 1 Package 0 05/26/2020 Active famotidine (PEPCID) [...] pain 01/24/2012 01/17/2017 Genetic Sleep Disorder Research Other*[id number] 05/13/2011 04/07/2016 Obstructive sleep apnea 01/18/2011 12/27/19 [...] or bathing? 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-dampproofer helps 07/15/2020 Because of a physical, menta [...] 3:05 PM EST Hematology/Oncology Outpatient Clinic note [facility] [place] [address] Name: Shaina Bustos Date: 08/21/2020 CHIEF COMPLAINT: [...] records, also reviewed her medical records from [facility]. She has underlying cirrhosis of liver, has evidence of iron deficiency for the last 1 year, Ferritin level was less than 10 earlier in December 2018, she was on oral iron replacement therapy once a day,lately increase to twice a day. She was admitted at [facility] in November 2019, she received 1 [...] like this. Vital signs are stable. BG 207. EKG ordered. Review of patient's allergies indicates: [...] bedtime. 34 Tab 0 Continuous Blood Gluc Rope Twisting Machine Operator (FREESTYLE XOCHITL 2 READER SYSTM) KORTNEY Freestyle Xochitl 2 14-day Rope Twisting Machine Operator (287672) 1 Package 0 Continuous Blood Gluc Sensor (FREESTYLE XOCHITL 2 SENSOR SYSTM) MISC Freestyle Xochitl 2 14-day Sensor (473916) (2 sensors=28 day/1-month supply) 2 Each 1 [...] With spacer 16 g 1 nystatin (NYSTOP) 208030 UNIT/GM powder Apply topically to affected area [...] less than 7.0% ([facility]) 09/26/2013 ICD-10 update of inactive [...] No vegetative signs of depression. LABS: BG 207. IMPRESSION/PLAN: Iron Deficiency Anemia Chest Pain Patient noting the above symptoms prior to starting transfusion concerning for cardiac etiology of chest pain. Stat EKG preformed and no evidence of STEMI noted. BG 207. Most recent echo reviewed. EMS activated via nursing, patient to be evaluted in ER- requires cardiac enzymes, telemetry, and possible cardiology consult. Transfer Center contacted- case discussed with Dr. Mayers. Nursing to notify patient's . [place] Text sent to Dr. Sanchez with update. RTC in 1 week to receive Venofer- Rx 2. Carlee Ley PA-C documented in this encounter Plan of Treatment Upcoming Encounters Date Type Specialty Care Team Description 08/31/2020 Office Visit Pharmacy [facility] [address] [facility] [place] [id number] 09/01/2020 Nutrition Services Gastroenterology Melissa Omalley RDN [address] [facility] [address] [place] [id number] 09/03/2020 Imaging Radiology 09/15/2020 Office Visit [facility]opedics [facility] [address] [facility] [address] [phone] 09/23/2020 Office Visit Gastroenterology Lyssa Stout CRNP [address] [facility] [place] [address] [phone] 10/02/2020 Telemedicine Endocrinology Alberta Duque PA-C [address] [facility] [place] [address] Health Maintenance Due Date [...] of this encounter Implants Implanted Type Area High School Math Teacher Device Identifier Shelf Expiration Date Model / Serial / Lot Microtech Sure Clip Implanted:Qty: 2 on 06/03/2020 by Janis Hatch DO at OR [facility] Clip N/A: Colon 04/21/2022 [facility]-F-26-2 35-C-R / / [id number] documented as of this encounter Procedures Procedure Name Priority Date/Time Associated Diagnosis Comments GLUCOSE METER STAT STRIP Routine 08/21/2020 3:17 PM EST documented in this encounter Results * GLUCOSE METER STAT STRIP (08/21/2020 3:17 PM EST) GLUCOSE METER 217(H) 70 - 120 mg/dL [facility] GLUCOSE COMMENT Notified Provider [facility] Specimen [facility] [address] [place] [address] documented in this encounter Visit Diagnoses Diagnosis Iron deficiency anemia due to chronic blood loss- Primary Iron deficiency anemia secondary to blood loss (chronic) Chest pain, unspecified type documented in this encounter Advance Directives Documents on File Type Date Recorded Patient Customer Retention Specialist Expl anation Advanced Directive service a [...]
--- OUTSIDE RECORDS SUMMARY | 2023-05-10 21:55 | External Medical Summary | Summary of Care ---
Author Name Unknown Organization [place] [address] Care Team Providers Care General Farm Hand Name Role Phone Alexandra Caceres Primary Care Provider [phone] Reason for Visit * Reason Comments Chest Pain Encounter Details Date Type Department Care Team Description 08/21/2020 Office Visit Hematology Oncology [facility] [place] [address] [place] [address] Carlee Ley PA-C [address] [place] [address] Iron deficiency anemia due to [...] 120 Vial 11 10/02/2019 Active nystatin (NYSTOP) 633275 UNIT/GM powder Apply topically to affected area [...] SYSTM) MISC Freestyle Xochitl 2 14-day Sensor (042002) (2 sensors=28 day/1-month supply) 2 Each 1 05/26/2020 Active Continuous Blood Gluc Painter Ordnance (FREESTYLE XOCHITL 2 READER SYSTM) KORTNEY Freestyle Xochitl 2 14-day Painter Ordnance (255165) 1 Package 0 05/26/2020 Active famotidine (PEPCID) [...] pain 01/24/2012 01/17/2017 Genetic Sleep Disorder Research Other*[id number] 05/13/2011 04/07/2016 Obstructive sleep apnea 01/18/2011 12/27/19 [...] or bathing? 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-companion caregiver helps 07/15/2020 Because of a physical, [...] 3:05 PM EST Hematology/Oncology Outpatient Clinic note [facility] [place] [address] Name: Shaina Bustos Date: 08/21/2020 CHIEF COMPLAINT: [...] records, also reviewed her medical records from [facility]. She has underlying cirrhosis of liver, has evidence of iron deficiency for the last 1 year, Ferritin level was less than 10 earlier in December 2018, she was on oral iron replacement therapy once a day,lately increase to twice a day. She was admitted at [facility] in November 2019, she received 1 [...] bedtime. 34 Tab 0 Continuous Blood Gluc Painter Ordnance (FREESTYLE XOCHITL 2 READER SYSTM) KORTNEY Freestyle Xochitl 2 14-day Painter Ordnance (586424) 1 Package 0 Continuous Blood Gluc Sensor (FREESTYLE XOCHITL 2 SENSOR SYSTM) MISC Freestyle Xochitl 2 14-day Sensor (171871) (2 sensors=28 day/1-month supply) 2 Each 1 [...] With spacer 16 g 1 nystatin (NYSTOP) 692310 UNIT/GM powder Apply topically to affected area [...] 7.0% ([facility]) 09/26/2013 ICD-10 update of inactive term REVIEW [...] Dr. Mayers. Nursing to notify patient's . [place] Text sent to Dr. Sanchez with update. RTC in 1 week to receive Venofer- Rx 2. Carlee Ley PA-C documented in this encounter Plan of Treatment Upcoming Encounters Date Type Specialty Care Team Description 08/31/2020 Office Visit Pharmacy [facility] [address] [facility] [place] [id number] 09/01/2020 Nutrition Services Gastroenterology Melissa Omalley RDN [address] [facility] [address] [place] [id number] 09/03/2020 Imaging Radiology 09/15/2020 Office Visit Orthopedics [facility] [address] [facility] [address] [phone] 09/23/2020 Office Visit Gastroenterology Lyssa Stout CRNP [address] [facility] [place] [address] [phone] 10/02/2020 Telemedicine Endocrinology Alberta Duque PA-C [address] [facility] [place] [address] Health Maintenance Due [...] of this encounter Implants Implanted Type Area Hollow Ware Maker Device Identifier Shelf Expiration Date Model / Serial / Lot Microtech Sure Clip Implanted:Qty: 2 on 06/03/2020 by Janis Hatch DO at OR [facility] Clip N/A: Colon 04/21/2022 [facility]-F-26-2 35-C-R / / [id number] documented as of this encounter Procedures Procedure Name Priority Date/Time Associated Diagnosis Comments GLUCOSE METER STAT STRIP Routine 08/21/2020 3:17 PM EST documented in this encounter Results * GLUCOSE METER STAT STRIP (08/21/2020 3:17 PM EST) GLUCOSE METER 217(H) 70 - 120 mg/dL [facility] GLUCOSE COMMENT Notified Provider [facility] Specimen 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
--- OUTSIDE RECORDS SUMMARY | 2023-05-10 21:55 | External Medical Summary ---
Author Name Unknown Address [facility]note 3[facility] [place] [address] Phone Organization K01:[place] [address] Laboratory Report Ordering Provider Test Date Status ROD TIM 08/21/2020 19:01:00 Final Observation Date Value Abnormality Reference (Units ) Status D-dimer, Quant. 08/21/2020 19:31 0.46 <0.50 ( ug/ml FEU) Final Performing Location [place] [id number]
--- OUTSIDE RECORDS SUMMARY | 2023-05-10 21:55 | External Medical Summary | Summary of Care ---
Author Name Unknown Organization [place] [address] Care Team Providers Care Assembly Machine Tender Name Role Phone Alexandra Caceres Primary Care Provider Reason for Visit * Reason Comments Treatment Encounter Details Date Type Department Care Team Description 08/21/2020 Hem/Onc Treatment Hematology Oncology [facility] [place] [address] [place] [address] [place], [facility] 8 Hem/Onc [facility] [place] [address] Iron deficiency anemia due to [...] 120 Vial 11 10/02/2019 Active nystatin (NYSTOP) 571509 UNIT/GM powder Apply topically to affected area [...] SYSTM) MISC Freestyle Xochitl 2 14-day Sensor (845208) (2 sensors=28 day/1-month supply) 2 Each 1 05/26/2020 Active Continuous Blood Gluc C Web Developer (FREESTYLE XOCHITL 2 READER SYSTM) KORTNEY Freestyle Xochitl 2 14-day C Web Developer (706111) 1 Package 0 05/26/2020 Active famotidine (PEPCID) [...] pain 08/19/2016 01/17/2017 Depression with anxiety 08/19/2016 06/05/20 18 Hepatic [...] pain 01/24/2012 01/17/2017 Genetic Sleep Disorder Research Other*[id number] 05/13/2011 04/07/2016 Obstructive sleep apnea 01/18/2011 12/27/19 [...] Reading Time Taken Comments Blood Pressure 110/70 08/21/2020 3:03 PM EST man ual Pulse 75 08/21/2020 3:03 PM EST Temperature 37.1 C (98.8 F) 08/21/2020 2:29 PM ES T Respiratory Rate 18 08/21/2020 3:03 PM EST Oxygen Saturation 94% 08/21/2020 2:50 PM EST Inhaled Oxygen Concentration - - Weight - - Height 149.9 cm (4' 11") 08/21/2020 2:29 PM EST Body Mass Index - - [...] or bathing? 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 At that time patient stated she was having central chest pain radiating to her left arm. Patient stated her pain was sharp and 8/10. States that this pain has been happen for the last 10 minutes off and on. Carlee Ley PA-C made aware and VS obtained. EKG obtained and blood sugar. BS was 217. Carlee Ley PA-C at chairside and decided to send patient to emergency room. 911 called and husbandmade aware. 1540 EMS here and patient left via stretcher. documented in this encounter Plan of Treatment Upcoming Encounters Date Type Specialty Care Team Description 08/28/2020 Hem/Onc Treatment Hematology Oncology [place], [place] 11 Hem/Onc [address] [facility] [address] 08/31/2020 Office Visit Pharmacy [facility] [address] [facility] [place] [id number] 09/01/2020 Nutrition Services Gastroenterology Melissa Omalley, SAMANTHA [address] [place] [address] [place] [address] [phone] 09/03/2020 Imaging Radiology 09/15/2020 Office Visit Orthopedics Jayme Benz MD [address] [facility] [place] [address] 09/23/2020 Office Visit Gastroenterology Lyssa Stout CRNP [address] [place] [address] [phone] 10/02/2020 Telemedicine Endocrinology Alberta Duque PA-C [address] [facility] [address] Health Maintenance Due Date Last Done [...] of this encounter Implants Implanted Type Area Esol Teacher Assistant Device Identifier Shelf Expiration Date Model / Serial / Lot Microtech Sure Clip Implanted:Qty: 2 on 06/03/2020 by Janis Hatch DO at OR [facility] Clip N/A: Colon 04/21/2022 [facility]-F-26-2 35-C-R / / [id number] documented as of this encounter Visit Diagnoses Diagnosis Iron deficiency anemia due to chronic blood loss- Primary Iron deficiency anemia secondary to blood loss (chronic) documented in this encounter Advance Directives Documents on File Type Date Recorded 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
--- OUTSIDE RECORDS SUMMARY | 2023-05-10 21:56 | External Medical Summary ---
Author Name Unknown Address Unknown Organization R:IT USE ONLY!!! Laboratory Report Ordering Provider Test Date Status KRISTEN RIGGINS 08/21/2020 15:17:00 Final Observation Date Value Abnormality Reference (Units) Status Glucose Point of Care 08/21/2020 15:44 217 Above high normal 70-120 (mg/dL) Final Annotation Comment 08/21/2020 15:44 Notified Provider Final Performing Location IT USE ONLY!!!
--- OUTSIDE RECORDS SUMMARY | 2023-05-10 21:56 | External Medical Summary ---
Author Name Unknown Address [facility] N [facility] [place] [address] Phone Organization K01:[place] [address] [address] [facility] [place] [address] Laboratory Report Ordering Provider Test Date Status ROD TIM 08/21/2020 18:27:00 Final Observation Date Value Abnormality Reference (Units ) Status Troponin T 08/21/2020 19:00 9 0-14 (ng/L) Final Performing Location [address] [address]
--- OUTSIDE RECORDS SUMMARY | 2023-05-10 21:56 | External Medical Summary ---
Author Name Unknown Address [facility] N [facility] [place] [address] Phone Organization K01:[place] [address] [address] [facility] [place] [address] Laboratory Report Ordering Provider Test Date Status ROD TIM 08/21/2020 16:35:00 Final Observation Date Value Abnormality Reference (Units ) Status Troponin T 08/21/2020 17:22 9 0-14 (ng/L) Final Performing Location [address] [address]
--- OUTSIDE RECORDS SUMMARY | 2023-05-10 21:56 | External Medical Summary ---
Author Name Unknown Address [address] [place] [id number] Phone Organization K01:[facility] [address] [place] [id number] Laboratory Report Ordering Provider Test Date Status MEETA,VELASCO 08/21/2020 16:35:00 Final Observation Date Value Abnormality Reference (Units ) Status BUN 08/21/2020 17:22 12 6-20 (mg/dL) Final Creatinine 08/21/2020 17:22 0.7 0.5-1.0 (mg/ dL) Final E Glom Filt Rate 08/21/2020 17:22 >60.0 >60 Final Performing Location [facility] [address] [facility] [address]
--- OUTSIDE RECORDS SUMMARY | 2023-05-10 21:56 | External Medical Summary ---
Author Name Unknown Address [facility] [place] [address] Phone Organization K01:[place] [address] Laboratory Report Ordering Provider Test Date Status ROD TIM 08/21/2020 16:35:00 Final Observation Date Value Abnormality Reference (Units ) Status Lactic Acid, Whole Blood 08/21/2020 16:44 1.2 0.4-2.0 (mmol/L) Final Performing Location [place] [id number]
--- OUTSIDE RECORDS SUMMARY | 2023-05-10 21:56 | External Medical Summary ---
Author Name Unknown Address [facility] [place] [address] Phone Organization K01:[place] [address] Laboratory Report Ordering Provider Test Date Status ROD TIM 08/21/2020 16:35:00 Final Observation Date Value Abnormality Reference (Units ) Status aPTT panel in Platelet poor plasma 08/21/2020 17:07 35 21-38 (seconds) Final Performing Location [place] [id number]
--- OUTSIDE RECORDS SUMMARY | 2023-05-10 21:56 | External Medical Summary ---
Author Name Unknown Address [facility] [place] [address] Phone Organization K01:[place] [address] [address] [place] [id number] Laboratory Report Ordering Provider Test Date Status ROD TIM 08/21/2020 16:35:00 Final Observation Date Value Abnormality Reference (Units ) Status PT 08/21/2020 17:06 15.3 Above high normal 11.5- 14.6 (seconds) Final INR 08/21/2020 17:06 1.19 Above high normal 0.84- 1.14 Final Performing Location [address] [address]
--- OUTSIDE RECORDS SUMMARY | 2023-05-10 21:56 | External Medical Summary ---
Author Name Unknown Address [address] [facility] [place] [address] Phone Organization [facility] [address] [facility] [place] [address] Laboratory Report Ordering Provider Test Date Status ROD TIM 08/21/2020 16:35:00 Final Observation Date Value Abnormality Reference (Units) Status WBC, Total 08/21/2020 17:03 2.70 Below low normal 4.00-10.80 (K/uL) Final RBC 08/21/2020 17:03 2.87 Below low normal 3.85-5.15 (M/uL) Final Hemoglobin 08/21/2020 17:03 7.9 Below low normal 12.0-15.3 (g/dL) Final HCT 08/21/2020 17:03 26.8 Below low normal 36.0-45.2 (%) Final MCV 08/21/2020 17:03 93.4 81.5-97.5 (fL) Final MCH 08/21/2020 17:03 27.5 27.0-34.0 (pg) Final MCHC 08/21/2020 17:03 29.5 Below low normal 32.0-36.0 (g/dL) Final RDW 08/21/2020 17:03 21.8 Above high normal 11.5-15.5 (%) Final Platelets 08/21/2020 17:03 82 Below low normal 140-400 (K/uL) Final MPV 08/21/2020 17:03 NO RESULT - ABNORMAL PLATELET DISTRIBUTION 6.6-11.1 (fL) Final Nucleated erythrocytes/100 leukocytes [Ratio] in Blood by Automated count 08/21/2020 17:03 0 0 (/100 WBCs) Final Segs 08/21/2020 17:42 55.6 40-75 (%) Final Lymphs % 08/21/2020 17:42 25.2 18-42 (%) Final Monos 08/21/2020 17:42 11.9 Above high normal 1-11 (%) Final Eosinophils 08/21/2020 17:42 5.9 0-6 (%) Final Basos 08/21/2020 17:42 0.7 0-2 (%) Final Immature Granulocyte, Percent 08/21/2020 17:42 0.7 0-2 (%) Final Neutrophils [#/volume] in Blood 08/21/2020 17:42 1.50 Below low normal 1.8-7.7 (K/uL) Final Lymphs, absolute 08/21/2020 17:42 0.68 Below low normal 1.0-4.8 (K/uL) Final Monos, Abs 08/21/2020 17:42 0.32 0.0-1.1 (K/uL) Final Eos, Abs 08/21/2020 17:42 0.16 0.0-0.7 (K/uL) Final Basos, Abs 08/21/2020 17:42 0.02 0.0-0.2 (K/uL) Final Immature Granulocytes, Number 08/21/2020 17:42 0.02 0.0-0.2 (K/uL) Final Anisocytosis [Presence] in Blood by Light microscopy 08/21/2020 17:42 MODERATE Final Polychromasia [Presence] in Blood by Light microscopy 08/21/2020 17:42 SLIGHT Final Hypochromia [Presence] in Blood by Light microscopy 08/21/2020 17:42 SLIGHT Final Ovalocytes [Presence] in Blood by Light microscopy 08/21/2020 17:42 MODERATE Final Dacrocytes [Presence] in Blood by Light microscopy 08/21/2020 17:42 FEW Final Performing Location [facility] [address] [facility] [address]
--- OUTSIDE RECORDS SUMMARY | 2023-05-10 21:56 | External Medical Summary ---
Author Name Unknown Address [address] [place] [address] Phone Organization K01:[facility] [address] [facility] [address] Laboratory Report Ordering Provider Test Date Status ROD TIM 08/21/2020 16:41:00 Final Observation Date Value Abnormality Reference (Units) Status Source 08/21/2020 16:47 NASAL Final : First test for condition of interest 08/21/2020 16:47 NO Final status 08/21/2020 16:47 UNKNOWN Final Employed in a healthcare setting 08/21/2020 16:47 NO Final Patient was hospitalized because of this condition 08/21/2020 16:47 YES Final Admit to ICU for cond of interest 08/21/2020 16:47 NO Final Resides in congregate care setting 08/21/2020 16:47 NO Final Has symptoms related to cond of interest 08/21/2020 16:47 YES Final IF YES, WHAT SYMPTOMS ARE PRES 08/21/2020 16:47 SHORTNESS OF BREATH Final When did you start to experience these symptoms [Date and time] PhenX 08/21/2020 16:47 [id number] Final SARS coronavirus 2 RNA [Presence] in Nasopharynx by JANY with non-probe detection 08/21/2020 18:09 NEGATIVE NEG Final Influenza virus A RNA [Presence] in Unspecified specimen by Probe and target amplification method 08/21/2020 18:09 NEGATIVE NEG Final Influenza virus B RNA [Presence] in Unspecified specimen by Probe & target amplification method 08/21/2020 18:09 NEGATIVE NEG Final Respiratory syncytial virus RNA [Presence] in Unspecified specimen by Probe and target amplification method 08/21/2020 18:09 NEGATIVE NEG Final COMMENT 08/21/2020 18:09 NO INFLUENZA A RNA DETECTED BY PCR (AMPLIFIED PROBE) Final COMMENT 08/21/2020 18:09 NO INFLUENZA B RNA DETECTED BY PCR (AMPLIFIED PROBE) Final COMMENT 08/21/2020 18:09 NO RESPIRATORY SYNCYTIAL VIRUS RNA DETECTED BY PCR (AMPLIFIED PROBE) Final COMMENT 08/21/2020 18:09 No SARSCOV2 CORONAVIRUS RNA detected by PCR. (AMPLIFIED PROBE) Final COMMENT 08/21/2020 16:47 Final Performing Location [address] [address]
--- OUTSIDE RECORDS SUMMARY | 2023-05-10 21:56 | External Medical Summary | Summary of Care ---
Author Name Unknown Organization [place] [address] Care Team Providers Care Cloud Subject Matter Expert Name Role Phone NikAlexandra fernandez Primary Care Provider [phone] Reason for Visit * Reason Comments Diabetes Follow-Up Encounter Details Date Type Department Care Team Description 08/21/2020 Telemedicine Endocrinology, [place] [address] [place] [address] Alberta Duque PA-C [address] [place] [address] Type 2 diabetes mellitus with hemoglobin A1c goal of less than 8.0% ([facility])* Allergies Active Allergy Reactions Severity Noted Date [...] 120 Vial 11 10/02/2019 Active nystatin (NYSTOP) 675395 UNIT/GM powder Apply topically to affected area [...] SYSTM) MISC Freestyle Xochitl 2 14-day Sensor (227216) (2 sensors=28 day/1-month supply) 2 Each 1 05/26/2020 Active Continuous Blood Gluc Eye Care Professional (FREESTYLE XOCHITL 2 READER SYSTM) KORTNEY Freestyle Xochitl 2 14-day Eye Care Professional (600553) 1 Package 0 05/26/2020 Active famotidine (PEPCID) [...] e xtremities 05/07/2012 GN (nonalcoholic steatohepatitis) 04/12 HTN, goal below 140/90 [...] pain 01/24/2012 01/17/2017 Genetic Sleep Disorder Research Other*[id number] 05/13/2011 04/07/2016 Obstructive sleep apnea 01/18/2011 12/27/19 [...] or bathing? 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 | For: Diabetes Return | Check-out note: Accepted telephone appointment on 10/02/2020 at 2 pm , telephone visit, thanks! documented in this encounter Progress Notes * Alberta Duque PA-C - 08/21/2020 9:06 AM EST After connecting to the patient via telephone, the patient was identified by name and date of . Patient was then informed that this was a telephone call only visit. The patient agreed to participate. Visit Disposition: Routine follow-up Total call duration was 20 minutes. CC Diabetes mellitus type 2 Follow up HPI Shaina Bustos is a 65 year old female who was diagnosed with diabetesabout 2 years ago. Familyhistory of diabetes includes father T2DM, sister T2DM. Diabetes historically has been uncontrolled. 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 Followed by podiatry : YES. Current issues with feet: : YES, healing diabetic ulcer Nephropathy:: NO. Last urine mc below. ACEi/ARB: Denies Retinopathy:: NO. Last eye exam > 1 year. Macrovascular complications: Stroke: NO Heart [...] (HCC) 09/26/2013 ICD-10 update of inactive term PSH Past Surgical History: Procedure Laterality Date BONE DEBRIDEMENT, FIRST 20 CM2 Right 04/16/2020 DEBRIDEMENT SKIN SUBCUTANEOUS TISSUE MUSCLE AND BONE performed by Josh Vazquez MD at [facility] DELIVERY 04/20/1982 COLONOSCOPY 04/21/2009 repeat in 10 years COLONOSCOPY, DIAGNOSTIC (RECTUM) 10/04/2016 normal bx, repeat 10 yrs/[facility] COLONOSCOPY, DIAGNOSTIC (RECTUM) N/A 06/03/2020 internal hemorrhoids/biopsies show adenomatous polyps/recall 5 years/COLONOSCOPY FLEXIBLE PROXIMAL DIAGNOSTIC performed by Janis Hatch DO at [facility] DENTAL SURGERY PROCEDURE NEC wisdom teeth x 4 DILATION AND CURETTAGE (D&C) EGD, FLEXIBLE, DIAGNOSTIC 10/04/2016 gastritis/[facility] EGD, FLEXIBLE, DIAGNOSTIC 01/11/2018 eso varices, retained food, repeat 1 yr/[facility] EGD, FLEXIBLE, DIAGNOSTIC N/A 06/03/2020 severe erosive esophagitis/non-bleeding grade II esophageal varices/gastritis/biopsies show inflammatory changes/repeat 3-4 months/ESOPHAGOGASTRODUODENOSCOPY (EGD), FLEXIBLE, TRANSORAL, DIAGNOSTIC per formed by Janis Hatch DO at [facility] EGD, FLEXIBLE, DIAGNOSTIC 11/27/2019 eso varices, portal hypertensive gastropathy, gastritis / [facility] EGD, FLEXIBLE, DIAGNOSTIC N/A 08/05/2020 ESOPHAGOGASTRODUODENOSCOPY (EGD), FLEXIBLE, TRANSORAL, DIAGNOSTIC performed by Janis Hatch DO at OR [facility] PELVIS/HIP JOINT SURGERY NEC teenager aid in walking REPAIR/GRAFT ACHILLES TENDON age 40 aid in walking MEDS No outpatient medications have been marked as taking for the 08/21/20 encounter (Telemedicine) Mahogany Duque PA-C. ALL Reviewed and updated in the appropriate [...] per HPI All other were negative. PE Not completed due to visit via phone call. RECORDS I reviewed the available medical records regarding her diabetes management and have summarized the relevant information per HPI above. LABS HEMOGLOBIN, A1C(%) Lucio Dt/Tm Resulted Value Status 07/06/20 5:24A 07/06/20 9.9* FINAL 05/26/20 4:44A 05/26/20 11.0* FINAL 04/28/20 4:37P 04/28/20 9.9* FINAL LDL (DIRECT MEASURE)(mg/dL) Lucio Dt/Tm Resulted Value Status 02/21/20 11:43A 02/21/20 46 FINAL MICROALBUMIN RATIO(mg/g creat) Lucio Dt/Tm Resulted Value Low High Status 01/11/19 1:29P 01/11/19 <10 FINAL 02/03/17 9:58A 02/03/17 <15 FINAL 08/25/15 1:56P 08/25/15 27 FINAL BASIC METAB PANEL, BMP Lucio Dt/Tm Resulted [...] CALCIUM (mg/dL) 08/14/20 6:53P 08/14/20 8.7 F IMP Shaina Bustos is a 65 year old female here for follow up for T2DM. Most recent A1C 9.9%, historically uncontrolled. Starting using Freestyle Xochitl last visit , has been doing a much better job monitoring her blood sugars. Overall , most are around or below 200 which is a good improvement , goal is to have blood sugars < 150. Recommend increasing Dinner dose of Novolog to 28 units of Novolog. Can continue the same dose of Lantus as she is steady overnight. Both patient and confirmed understanding. Can continue Trulicity 1.5 mg / week . LDL within goal. PLAN Type 2 diabetes mellitus with hemoglobin A1c goal of less than 8.0% ([facility]) (Primary) - Start Novolog 28 units at dinner, and Continue 26 units of Novolog at breakfast and lunch - continue 30 units of Lantus - continue Trulicity 1.5 mg / week - continue to monitor blood sugars via Freestyle Xochitl Follow Up: Return for Diabetes Return. | For: Diabetes Return | Check-out note: Accepted telephone appointment on 10/02/2020 at 2 pm , telephone visit, thanks! Alberta Duque PA-C [facility] Endocrinology [address] [address] Phone: [phone] Fax: [phone] documented in this encounter Plan of Treatment Upcoming Encounters Date Type Specialty Care Team Description 08/21/2020 Hem/Onc Treatment Hematology Oncology Alex, Chair 8 Hem/Onc [address] [facility] [place] [address] 08/31/2020 Office Visit Pharmacy [facility] [address] [place] [address] [place] [address] [phone] 09/01/2020 Nutrition Services Gastroenterology Melissa Omalley, RDN [address] [place] [address] [phone] 09/03/2020 Imaging Radiology 09/15/2020 Office Visit Orthopedics Jayme Benz MD [address] [place] [address] 09/23/2020 Office Visit Gastroenterology Lyssa Stout CRNP [address] [facility] [place] [address] [phone] 10/02/2020 Telemedicine Endocrinology Alberta Duque PA-C [address] [place] [address] Health Maintenance Due Date Last [...] of this encounter Implants Implanted Type Area Ash Collector Device Identifier Shelf Expiration Date Model / Serial / Lot Microtech Sure Clip Implanted:Qty: 2 on 06/03/2020 by Janis Hatch DO at OR [facility] Clip N/A: Colon 04/21/2022 [facility]-F-26-2 35-C-R / / [id number] documented as of this encounter Visit Diagnoses Diagnosis Type 2 diabetes mellitus with hemoglobin A1c goal of less than 8.0% (HCC)- Primary documented in this encounter Advance Directives Documents on File Type Date Recorded 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
--- OUTSIDE RECORDS SUMMARY | 2023-05-10 21:57 | External Medical Summary | Summary of Care ---
Author Name Unknown Organization [place] [address] Care Team Providers Care Event Host Name Role Phone Alexandra Caceres DO Primary Care Provider [phone] Encounter Details Date Type Department Care Team Description 08/17/2020 Documentation [facility]ALTH & WELLNESS Alexandra Caceres DO [address] [place] [address] Allergies Active Allergy Reactions Severity Noted Date Comments Adhesive Tape Itching 04/29/2020 Penicillins Rash 02/12/2008 Perflutren Protein A Microsph 2019 Definity-lower back pain documented as of this encounter (statuses as of 08/17/2020) Medications Medication Sig Dispensed Refills Start Date [...] 120 Vial 11 10/02/2019 Active nystatin (NYSTOP) 554927 UNIT/GM powder Apply topically to affected area [...] Gluc Sensor (FREESTYLE XOCHITL 2 SENSOR SYSTM) [facility] Freestyle Xochitl 2 14-day Sensor (545817) (2 sensors=28 day/1-month supply) 2 Each 1 05/26/2020 Active Continuous Blood Gluc Senior C Developer (FREESTYLE XOCHITL 2 READER SYSTM) KORTNEY Freestyle Xochitl 2 14-day Senior C Developer (583963) 1 Package 0 05/26/2020 Active famotidine (PEPCID) [...] as of this encounter (statuses as of 08/17/2020) Active Problems Problem Noted Date Uncontrolled type [...] as of this encounter (statuses as of 08/17/2020) Resolved Problems Problem Noted Date Resolved Date [...] pain 01/24/2012 01/17/2017 Genetic Sleep Disorder Research Other*[id number] 05/13/2011 04/07/2016 Obstructive sleep apnea 01/18/2011 12/27/19 [...] as of this encounter (statuses as of 08/17/2020) Immunizations Name Administration Dates Next Due HEP [...] as of this encounter Progress Notes * Quita Elaine Care Associate - 08/17/2020 3:14 PM EST Received referral for positive food insecurity screening, Outreach to patient to confirm results. Unable to reach patient: No answer x 2, final attempt Quita Elaine Medical Offbearer [facility] documented in this encounter Plan of Treatment Upcoming Encounters Date Type Specialty Care Team Description 08/19/2020 Office Visit Family Medicine Alexandra Caceres, DO [address], [place] [id number] 08/21/2020 Telemedicine Endocrinology Alberta Duque PA-C [address] [place], [place] [id number] 08/21/2020 Hem/Onc Treatment Hematology Oncology [place], Chair 8 Hem/Onc [address] [place] [address] [phone] 08/31/2020 [facility] [address], [place] [id number] 09/01/2020 Nutrition Services Gastroenterology Melissa Omalley RDN [address] [facility] [address] [place] [address] [phone] 09/03/2020 Imaging Radiology 09/15/2020 Office Visit Orthopedics Jayme Benz MD [address] [place] [address] 09/23/2020 Office Visit Gastroenterology Lyssa Stout CRNP [address] [facility] [place] [address] [phone] Health Maintenance Due Date Last Done Comments [...] this encounter Implants Implanted Type Area Senior Scientist Device Identifier Shelf Expiration Date Model / Serial / Lot Microtech Sure Clip Implanted:Qty: 2 on 06/03/2020 by Janis Hatch DO at OR [facility] Clip N/A: Colon 04/21/2022 [facility]-F-26-2 35-C-R / / [id number] documented as of this encounter Advance Directives Documents on File Type Date Recorded Patient Director Client Expl anation Advanced Directive service a kerri [...] Name Relationship Healthcare Agent [facility] Communication Syed Fariasel Spouse Emergency Contact
--- OUTSIDE RECORDS SUMMARY | 2023-05-10 21:57 | External Medical Summary | Summary of Care ---
Author Name Unknown Organization [facility] Address [facility] [place] [address] Care Team Providers Care Construction Site Manager Name Role Phone Alexandra Caceres DO Primary Care Provider [phone] Encounter Details Date Type Department Care Team Description 08/19/2020 Telemedicine [facility] [address] [place] [address] Alexandra Caceres DO [address] [place] [address] Intermittent asthma with reliever use up to [...] as of this encounter (statuses as of 08/19/2020) Medications Medication Sig Dispensed Refills Start Date [...] 120 Vial 11 10/02/2019 Active nystatin (NYSTOP) 002149 UNIT/GM powder Apply topically to affected area [...] SYSTM) MISC Freestyle Xochitl 2 14-day Sensor (915084) (2 sensors=28 day/1-month supply) 2 Each 1 05/26/2020 Active Continuous Blood Gluc Time Motion Analyst (FREESTYLE XOCHITL 2 READER SYSTM) KORTNEY Freestyle Xochitl 2 14-day Time Motion Analyst (582359) 1 Package 0 05/26/2020 Active famotidine (PEPCID) [...] as of this encounter (statuses as of 08/19/2020) Active Problems Problem Noted Date Uncontrolled type [...] as of this encounter (statuses as of 08/19/2020) Resolved Problems Problem Noted Date Resolved Date [...] pain 01/24/2012 01/17/2017 Genetic Sleep Disorder Research Other*[id number] 05/13/2011 04/07/2016 Obstructive sleep apnea 01/18/2011 12/27/19 [...] as of this encounter (statuses as of 08/19/2020) Immunizations Name Administration Dates Next Due HEP [...] or bathing? 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-clinical informatics director helps 07/15/2020 Because of a physical, [...] 5 weeks After her treatment. She uses [facility] for her oxygen supplier. She uses only oxygen at night. Today she sounds short of breath. She was laying flat. She is non ambulatory, is wheelchair bound. She has not used a neb treatment today PHM: Patient Active Problem List Diagnosis Code Venous insufficiency I87.2 Spinal stenosis of lumbar region without neurogenic claudication M48.061 Cerebral palsy ([facility]) G80.9 HTN, goal below 140/90 I10 Chronic rhinitis J31.0 NG (nonalcoholic steatohepatitis) K75.81 Venous stasis dermatitis of both lower extremities I87.2 DDD (degenerative disc disease), lumbar M51.36 Intermittent asthma with reliever use up to twice per week J45.20 Primary osteoarthritis of right knee M17.11 Lymphedema I89.0 Type 2 diabetes mellitus with hemoglobin A1c goal of less than 7.0% ([facility]) E11.9 Vitamin D deficiency E55.9 Restrictive lung disease J98.4 Obesity, morbid (more than 100 lbs over ideal weight or BMI > 40) ([facility]) E66.01 Dyslipidemia, goal LDL below 70 E78.5 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 R39.81 Acquired hypothyroidism E03.9 Chronic pain syndrome G89.4 MEDICATION USE AGREEMENT FI1173 Cirrhosis of liver ([facility]) K74.60 THAD on CPAP G47.33, Z99.89 Wheelchair dependent Z99.3 Pancytopenia ([facility]) D61.818 Ambulatory dysfunction R26.2 DM type 2 [...] with hyperglycemia ([facility]) E11.65 Current Outpatient Medications Medication Sig Dispense [...] bedtime. 34 Tab 0 Continuous Blood Gluc Time Motion Analyst (FREESTYLE XOCHITL 2 READER SYSTM) KORTNEY Freestyle Xochitl 2 14-day Time Motion Analyst (244843) 1 Package 0 Continuous Blood Gluc Sensor (FREESTYLE XOCHITL 2 SENSOR SYSTM) MISC Freestyle Xochitl 2 14-day Sensor (720800) (2 sensors=28 day/1-month supply) 2 Each 1 [...] With spacer 16 g 1 nystatin (NYSTOP) 744599 UNIT/GM powder Apply topically to affected area [...] neb treatment today. Will have nursing call h[place] patient about her wearing oxygen during the [...] Date Type Specialty Care Team Description 08/21/2020 Telemedicine Endocrinology Alberta Duque PA-C [address], [place] [address] 08/21/2020 Hem/Onc Treatment Hematology Oncology [place], Chair 8 Hem/Onc [address] [place] [address] [phone] 08/31/2020 Office Visit Pharmacy [facility] [address] [place], [place] [address] 09/01/2020 Nutrition Services Gastroenterology Melissa Omalley RDN [address] [facility] [address] [facility] [place] [address] [phone] 09/03/2020 Imaging Radiology 09/15/2020 Office Visit Orthopedics Jayme Benz MD [address] [place] [address] [phone] 09/23/2020 Office Visit Gastroenterology Lyssa Stout CRNP [address] [facility] [place] [address] [phone] Health Maintenance Due Date Last Done Comments [...] this encounter Implants Implanted Type Area Ramp Agent Device Identifier Shelf Expiration Date Model / Serial / Lot Microtech Sure Clip Implanted:Qty: 2 on 06/03/2020 by Janis Hatch DO at OR [facility] Clip N/A: Colon 04/21/2022 [facility]-F-26-2 35-C-R / / [id number] documented as of this encounter Visit Diagnoses Diagnosis Intermittent asthma with reliever use up to twice per week without complication- Primary Type 2 diabetes mellitus with hemoglobin A1c goal of less than 7.0% (HCC) Cirrhosis of liver without ascites, unspecified hepatic cirrhosis type (HCC) Pancytopenia (HCC) Other pancytopenia documented in this encounter Advance Directives Documents on File Type Date Recorded Patient Brick Washer Expl anation Advanced Directive service a [...]
--- OUTSIDE RECORDS SUMMARY | 2023-05-10 21:57 | External Medical Summary | Summary of Care ---
Author Name Unknown Organization [place] [address] Care Team Providers Care Patrol Deputy Sheriff Name Role Phone Alexandra Caceres Primary Care Provider [phone] Reason for Visit * Reason Onset Date Comments COVID-19 Screening 08/14/2020 Encounter Details Date Type Department Care Team Description 08/14/[address] [facility] [address] [place] [id number], Automated Provider COVID-19 Screening Allergies Active Allergy Reactions Severity Noted Date Comments Adhesive Tape Itching 04/29/2020 Penicillins Rash 02/12/2008 Perflutren Protein A Microsph 2019 Definity-lower back pain documented as of this encounter (statuses as of 08/14/2020) Medications Medication Sig Dispensed Refills Start Date [...] 120 Vial 11 10/02/2019 Active nystatin (NYSTOP) 720417 UNIT/GM powder Apply topically to affected area [...] Gluc Sensor (FREESTYLE XOCHITL 2 SENSOR SYSTM) MIS Freestyle Xochitl 2 14-day Sensor (062812) (2 sensors=28 day/1-month supply) 2 Each 1 05/26/2020 Active Continuous Blood Gluc High School French Teacher (FREESTYLE XOCHITL 2 READER SYSTM) KORTNEY Freestyle Xochitl 2 14-day High School French Teacher (976256) 1 Package 0 05/26/2020 Active famotidine (PEPCID) [...] as of this encounter (statuses as of 08/14/2020) Active Problems Problem Noted Date Uncontrolled type [...] as of this encounter (statuses as of 08/14/2020) Resolved Problems Problem Noted Date Resolved Date [...] pain 01/24/2012 01/17/2017 Genetic Sleep Disorder Research Other*[id number] 05/13/2011 04/07/2016 Obstructive sleep apnea 01/18/2011 12/27/19 [...] as of this encounter (statuses as of 08/14/2020) Immunizations Name Administration Dates Next Due HEP [...] or bathing? 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-rustic fence builder helps 07/15/2020 Because of a physical, menta [...] Telephone Encounter - Yaneth Poon Results - 08/14/2020 11:12 PM EST Outreach Attempts IVR Call Aug 14 2020 11:34AM Answered - Nurse Requested Results COVID: Negative Patient routed to YANETH triage nurse as requested IVR Message: Cecy Merritt. Your COVID-19 from 08/03/2020 00:00:00 results are negative. This means you are NOT infected with coronavirus. If your cold/flu symptoms last longer than 7 days or get worse, contact your primary care physician. If you don't have a primary care physician, [facility]. To establish care with a [facility] provider, please call [phone]. Practice social distancing and good hand hygiene to keep yourself and others safe. Your results are also available for your reference in your [employer] account under 'Test & Lab Results.' If you are not enrolled in [employer], you can create an account by going to [email or web address]. You will also receive a letter in the mail with your results. If you are a [employer] staff member or employee, when you receive your result, please call [facility] between 7 a.m. and 4 p.m. at [phone]. Notify them of your test results and for instructions on returning to work after your quarantine period. Press 1 if you would like to speak with a nurse, press 2 to hear this message again. documented in this encounter Plan of Treatment Upcoming Encounters Date Type Specialty Care Team Description 08/19/2020 Office Visit Family Medicine Alexandra Caceres DO [address] [place] [address] [phone] 08/21/2020 Telemedicine Endocrinology Alberta Duque PA-C [address] [place] [address] 08/21/2020 Hem/Onc Treatment Hematology Oncology [place], Chair 8 Hem/Onc [address] [place] [address] 08/31/2020 [facility] [address], [place] [address] 09/01/2020 Nutrition Services Gastroenterology Melissa Omalley RDN [address] [facility] [place] [address] [phone] 09/03/2020 Imaging Radiology 09/15/2020 Office Visit Orthopedics Jayme Benz MD [address] [place] [address] 09/23/2020 Office Visit Gastroenterology Lyssa Stout CRNP [address] [place] [address] [phone] Health Maintenance Due Date Last Done Comments [...] of this encounter Implants Implanted Type Area Hair And Makeup Designer Device Identifier Shelf Expiration Date Model / Serial / Lot Microtech Sure Clip Implanted:Qty: 2 on 06/03/2020 by Janis Hatch DO at OR [facility] Clip N/A: Colon 04/21/2022 [facility]-F-26-2 35-C-R / / [id number] documented as of this encounter Advance Directives Documents on File Type Date Recorded Patient Private Branch Exchange Service Adviser Expl anation Advanced Directive service a [...]
--- OUTSIDE RECORDS SUMMARY | 2023-05-10 21:57 | External Medical Summary | Summary of Care ---
Author Name Unknown Organization [facility] Address [facility] [place] [address] Care Team Providers Care Resistance Welding Machine Operator Name Role Phone Alexandra Caceres DO Primary Care Provider [phone] Encounter Details Date Type Department Care Team Description 08/19/2020 Telemedicine [facility] [address] [place] [address] Alexandra Caceres DO [address] [place] [address] Intermittent asthma with reliever use [...] as of this encounter (statuses as of 08/20/2020) Medications Medication Sig Dispensed Refills Start Date [...] 120 Vial 11 10/02/2019 Active nystatin (NYSTOP) 367982 UNIT/GM powder Apply topically to affected area [...] SYSTM) MISC Freestyle Xochitl 2 14-day Sensor (687280) (2 sensors=28 day/1-month supply) 2 Each 1 05/26/2020 Active Continuous Blood Gluc Paediatric Surgeon (FREESTYLE XOCHITL 2 READER SYSTM) KORTNEY Freestyle Xochitl 2 14-day Paediatric Surgeon (038083) 1 Package 0 05/26/2020 Active famotidine (PEPCID) [...] as of this encounter (statuses as of 08/20/2020) Active Problems Problem Noted Date Uncontrolled type [...] as of this encounter (statuses as of 08/20/2020) Resolved Problems Problem Noted Date Resolved Date [...] pain 01/24/2012 01/17/2017 Genetic Sleep Disorder Research Other*[id number] 05/13/2011 04/07/2016 Obstructive sleep apnea 01/18/2011 12/27/19 [...] as of this encounter (statuses as of 08/20/2020) Immunizations Name Administration Dates Next Due HEP [...] or bathing? 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-tube room supervisor helps 07/15/2020 Because of a physical, [...] 12:13 and ended at 12:25 Subjective: Shaina Bsutos is a 65 year old female. No [...] 5 weeks After her treatment. She uses [facility] for her oxygen supplier. She uses only oxygen at night. Today she sounds short of breath. She was laying flat. She is non ambulatory, is wheelchair bound. She has not used a neb treatment today PHM: Patient Active Problem List Diagnosis Code Venous insufficiency I87.2 Spinal stenosis of lumbar region without neurogenic claudication M48.061 Cerebral palsy ([facility]) G80.9 HTN, goal below 140/90 [...] than 7.0% ([facility]) E11.9 Vitamin D deficiency E55.9 Restrictive lung disease J98.4 Obesity, morbid (more than 100 lbs over ideal weight or BMI > 40) ([facility]) E66.01 Dyslipidemia, goal LDL below 70 E78.5 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 R39.81 Acquired hypothyroidism E03.9 Chronic pain syndrome G89.4 MEDICATION USE AGREEMENT [id number] Cirrhosis of liver ([facility]) K74.60 THAD on CPAP G47.33, Z99.89 Wheelchair dependent Z99.3 Pancytopenia ([facility]) D61.818 Ambulatory dysfunction R26.2 DM [...] hyperglycemia ([facility]) E11.65 Current Outpatient Medications Medication [...] bedtime. 34 Tab 0 Continuous Blood Gluc Paediatric Surgeon (FREESTYLE XOCHITL 2 READER SYSTM) KORTNEY Freestyle Xochitl 2 14-day Paediatric Surgeon (728447) 1 Package 0 Continuous Blood Gluc Sensor (FREESTYLE XOCHITL 2 SENSOR SYSTM) MISC Freestyle Xochitl 2 14-day Sensor (546213) (2 sensors=28 day/1-month supply) 2 Each 1 [...] With spacer 16 g 1 nystatin (NYSTOP) 419364 UNIT/GM powder Apply topically to affected area [...] neb treatment today. Will have nursing call [facility] [place] [facility] about her wearing oxygen during the [...] Telemedicine Endocrinology Alberta Duque PA-C [address] [place], [place] [id number] 08/21/2020 Hem/Onc Treatment Hematology Oncology [place], Chair 8 Hem/Onc [address] [place] [address] [phone] 08/31/2020 Office Visit Pharmacy [facility] [address] [place], [place] [address] 09/01/2020 Nutrition Services Gastroenterology Melissa Omalley RDN [address] [facility] [address] [facility] [place] [address] [phone] 09/03/2020 Imaging Radiology 09/15/2020 Office Visit Orthopedics Jayme Benz MD [address] [place] [address] [phone] 09/23/2020 Office Visit Gastroenterology Lyssa Stout CRNP 132 [facility] [place] [address] [phone] Health Maintenance Due Date Last Done Comments [...] of this encounter Implants Implanted Type Area Bone Process Operator Device Identifier Shelf Expiration Date Model / Serial / Lot Microtech Sure Clip Implanted:Qty: 2 on 06/03/2020 by Janis Hatch DO at OR [facility] Clip N/A: Colon 04/21/2022 [facility]-F-26-2 35-C-R / / [id number] documented as of this encounter Visit Diagnoses Diagnosis Intermittent asthma with reliever use up to twice per week without complication- Primary Type 2 diabetes mellitus with hemoglobin A1c goal of less than 7.0% (HCC) Cirrhosis of liver without ascites, unspecified hepatic cirrhosis type (HCC) Pancytopenia (HCC) Other pancytopenia documented in this encounter Advance Directives Documents on File Type Date Recorded Patient Foot Press Operator Expl 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
--- OUTSIDE RECORDS SUMMARY | 2023-05-10 21:58 | External Medical Summary ---
Author Name Unknown Address [facility] [place] [address] Phone Organization K01:[place] [address] [place] [id number] Laboratory Report Ordering Provider Test Date Status MASHA VERNON 08/14/2020 20:25:00 Final Observation Date Value Abnormality Reference (Units) Status Source 08/14/2020 20:27 CATHETERIZED URINE Final Bacteria identified in Unspecified specimen by Culture 08/15/2020 14:16 LESS THAN 10,000 COLONIES/ML MIXED NORMAL MAYRA Final REPORT STATUS 08/15/2020 14:16 08/15/2020 FINAL Final Performing Location [place] [address] [facility] [address]
--- OUTSIDE RECORDS SUMMARY | 2023-05-10 21:58 | External Medical Summary ---
Author Name Unknown Address [facility] N [facility] [place] [address] Phone Organization K01:[facility] [address] [facility] [place] [address] Laboratory Report Ordering Provider Test Date Status MASHA VERNON 08/14/2020 18:53:00 Final Observation Date Value Abnormality Reference (Units ) Status BUN 08/14/2020 19:30 9 6-20 (mg/dL) Final Creatinine 08/14/2020 19:30 0.6 0.5-1.0 (mg/ dL) Final E Glom Filt Rate 08/14/2020 19:30 >60.0 >60 Final Performing Location [facility] [address] [facility] [place] [address]
--- OUTSIDE RECORDS SUMMARY | 2023-05-10 21:58 | External Medical Summary | Summary of Care ---
Author Name Unknown Organization [place] [address] Care Team Providers Care Bailer Tenders Supervisor Name Role Phone Alexandra Caceres DO Primary Care Provider [phone] Encounter Details Date Type Department Care Team Description 08/14/2020 Documentation [facility] Alexandra Caceres DO [address] [place] [address] Allergies Active Allergy Reactions [...] 120 Vial 11 10/02/2019 Active nystatin (NYSTOP) 812986 UNIT/GM powder Apply topically to affected area [...] Gluc Sensor (FREESTYLE XOCHITL 2 SENSOR SYSTM) [facility] Freestyle Xochitl 2 14-day Sensor (179477) (2 sensors=28 day/1-month supply) 2 Each 1 05/26/2020 Active Continuous Blood Gluc Divorce Mediator (FREESTYLE XOCHITL 2 READER SYSTM) KORTNEY Freestyle Xochitl 2 14-day Divorce Mediator (047145) 1 Package 0 05/26/2020 Active famotidine (PEPCID) [...] pain 01/24/2012 01/17/2017 Genetic Sleep Disorder Research Other*[id number] 05/13/2011 04/07/2016 Obstructive sleep apnea 01/18/2011 12/27/19 [...] bathing? 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-web pressman helps 07/15/2020 Because of a physical, menta [...] Notes * Quita Elaine Care Associate - 08/14/2020 1:47 PM EST Received referral for positive food insecurity screening, Outreach to patient to confirm results. Unable to reach patient: No answer Left message x 1 Quita Elaine Medical Rn Case Mgr [facility] documented in this encounter Plan of Treatment Upcoming Encounters Date Type Specialty Care Team Description 08/19/2020 Office Visit Family Medicine Alexandra Caceres, DO [address] [place] [address] 08/21/2020 Telemedicine Endocrinology Alberta Duque PA-C [address] [place], [place] [phone] 08/21/2020 Hem/Onc Treatment Hematology Oncology [place], Chair 8 Hem/Onc [address] [place] [address] [phone] 08/31/2020 [facility] [address] [place], [place] [address] 09/01/2020 Nutrition Services Gastroenterology Melissa Omalley RDN [address] [facility] [address] [place] [address] [phone] 09/03/2020 Imaging Radiology 09/15/2020 Office Visit Orthopedics Jayme Benz MD [address] [place] [address] 09/23/2020 Office Visit Gastroenterology Lyssa Stout CRNP 132 [facility] [place] [address] [phone] Health Maintenance Due Date Last Done Comments [...] of this encounter Implants Implanted Type Area Agile Business Analyst Device Identifier Shelf Expiration Date Model / Serial / Lot Microtech Sure Clip Implanted:Qty: 2 on 06/03/2020 by Janis Hatch DO at OR [facility] Clip N/A: Colon 04/21/2022 [facility]-F-26-2 35-C-R / / [id number] documented as of this encounter Advance Directives Documents on File Type Date Recorded Patient Presser First Expl anation Advanced Directive service a kerri [...]
--- OUTSIDE RECORDS SUMMARY | 2023-05-10 21:58 | External Medical Summary | Summary of Care ---
Author Name Unknown Organization [place] [address] Care Team Providers Care Armhole Raiser Lockstitch Name Role Phone Alexandra Caceres DO Primary Care Provider [phone] Reason for Visit * Reason Onset Date Comments Medication Pre-auth 08/13/[address] tablets Encounter Details Date Type Department Care Team Description 08/13/2020 Telephone [facility] [address] [place] [address] Alexandra Caceres DO [address] [place] [address] Medication Pre-auth (Pantoprazole Sodium 2... Allergies Active Allergy Reactions Severity Noted Date [...] 120 Vial 11 10/02/2019 Active nystatin (NYSTOP) 657924 UNIT/GM powder Apply topically to affected area [...] SYSTM) MISC Freestyle Xochitl 2 14-day Sensor (506357) (2 sensors=28 day/1-month supply) 2 Each 1 05/26/2020 Active Continuous Blood Gluc Rubber Trimmer (FREESTYLE XOCHITL 2 READER SYSTM) KORTNEY Freestyle Xochitl 2 14-day Rubber Trimmer (925118) 1 Package 0 05/26/2020 Active famotidine (PEPCID) [...] pain 01/24/2012 01/17/2017 Genetic Sleep Disorder Research Other*[id number] 05/13/2011 04/07/2016 Obstructive sleep apnea 01/18/2011 12/27/19 [...] or bathing? 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-field checker helps 07/15/2020 Because of a physical, menta [...] Telephone Encounter - Michaelle Lindquist LPN - 08/14/2020 3:55 PM EST PA in process. * Telephone Encounter - Alexandra Caceres DO - 08/14/2020 11:35 AM EST I believe we need a form? * Telephone Encounter - Jesenia Herman LPN - 08/13/2020 4:53 PM EST covermymeds notation that pt needs PA for Pantoprazole Sodium 20MG dr tablets covermymeds ervin: [id number] pt- sent to [facility] for review and completion as appropriate documented in this encounter Plan of Treatment Upcoming Encounters Date Type Specialty Care Team Description 08/19/2020 Office Visit Family Medicine Alexandra Caceres DO [address] [place] [id number] 08/21/2020 Telemedicine Endocrinology Alberta Duque PA-C [address] [place] [address] [phone] 08/21/2020 Hem/Onc Treatment Hematology Oncology [place], Chair 8 Hem/Onc [address] [place] [address] [phone] 08/31/2020 Office Visit Pharmacy [facility] [address] [place], [place] [address] 09/01/2020 Nutrition Services Gastroenterology Melissa Omalley, [place] [address] [place] [address] [place] [id number] 09/03/2020 Imaging Radiology 09/15/2020 Office Visit Orthopedics Jayme Benz MD [address] [place] [address] [phone] 09/23/2020 Office Visit Gastroenterology Lyssa Stout CRNP [address] [place] [address] [phone] Health Maintenance Due Date Last Done Comments [...] this encounter Implants Implanted Type Area Product Applications Scientist Device Identifier Shelf Expiration Date Model / Serial / Lot Microtech Sure Clip Implanted:Qty: 2 on 06/03/2020 by Janis Hatch DO at OR [facility] Clip N/A: Colon 04/21/2022 [facility]-F-26-2 35-C-R / / [id number] documented as of this encounter Advance Directives Documents on File Type Date Recorded Patient Insurance And Benefits Clerk Expl anation Advanced Directive service a [...] Agent [facility] p Communication Syed Fariasel Spouse Emergency Contact
--- OUTSIDE RECORDS SUMMARY | 2023-05-10 21:58 | External Medical Summary ---
Author Name Unknown Address [facility] N [facility] [place] [address] Phone Organization K01:[place] [id number] Laboratory Report Ordering Provider Test Date Status MASHA VERNON 08/14/2020 18:53:00 Final Observation Date Value Abnormality Reference (Units ) Status Lactic Acid 08/14/2020 19:29 1.2 0.4-2.0 (mm ol/L) Final Performing Location [address] [address]
--- OUTSIDE RECORDS SUMMARY | 2023-05-10 21:58 | External Medical Summary | Summary of Care ---
Author Name Unknown Organization [place] [address] Care Team Providers Care Technology Architect Name Role Phone Alexandra Caceres DO Primary Care Provider [phone] Reason for Visit * Reason Onset Date Comments Medication Pre-auth 08/13/[address] tablets Encounter Details Date Type Department Care Team Description 08/13/2020 Telephone [facility] [address] [place] [address] Alexandra Caceres DO [address] [place] [address] Medication Pre-auth (Pantoprazole Sodium 2... [...] 120 Vial 11 10/02/2019 Active nystatin (NYSTOP) 576378 UNIT/GM powder Apply topically to affected area [...] SYSTM) MISC Freestyle Xochitl 2 14-day Sensor (139320) (2 sensors=28 day/1-month supply) 2 Each 1 05/26/2020 Active Continuous Blood Gluc Batter Depositor (FREESTYLE XOCHITL 2 READER SYSTM) KORTNEY Freestyle Xochitl 2 14-day Batter Depositor (442094) 1 Package 0 05/26/2020 Active famotidine (PEPCID) [...] pain 01/24/2012 01/17/2017 Genetic Sleep Disorder Research Other*[id number] 05/13/2011 04/07/2016 Obstructive sleep apnea 01/18/2011 12/27/19 [...] or bathing? 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-color room attendant helps 07/15/2020 Because of a [...] Pantoprazole Sodium 20MG dr tablets covermymeds ervin: [id number] [facility] pt- sent to [facility] for review and completion as appropriate documented in this encounter Plan of Treatment Upcoming Encounters Date Type Specialty Care Team Description 08/19/2020 Office Visit Family Medicine Alexandra Caceres DO [address] [place] [address] 08/21/2020 Telemedicine Endocrinology Alberta Duque PA-C [address] [place] [address] 08/21/2020 Hem/Onc Treatment Hematology Oncology [place], Chair 8 Hem/Onc [address] [place] [address] [phone] 08/31/2020 Office Visit [facility]acy [facility] [address] [place] [facility] [id number] 09/01/2020 Nutrition Services Gastroenterology Melissa Omalley, RDN [address] [place] [address] [place] [address] [phone] 09/03/2020 Imaging Radiology 09/15/2020 Office Visit Orthopedics Jayme Benz MD [address] [place] [place] [address] 09/23/2020 Office Visit Gastroenterology Lyssa Stout CRNP 132 [facility] [place] [address] [phone] Health Maintenance Due Date Last Done Comments [...] of this encounter Implants Implanted Type Area Buffer Machine Device Identifier Shelf Expiration Date Model / Serial / Lot Microtech Sure Clip Implanted:Qty: 2 on 06/03/2020 by Janis Hatch DO at OR [facility] Clip N/A: Colon 04/21/2022 [facility]-F-26-2 35-C-R / / [id number] documented as of this encounter Advance Directives Documents on File Type Date Recorded 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
--- OUTSIDE RECORDS SUMMARY | 2023-05-10 21:58 | External Medical Summary ---
Author Name Unknown Address [address] [facility] [place] [address] Phone Organization K01:[facility] [address] [place] [id number] Laboratory Report Ordering Provider Test Date Status MASHA VERNON 08/14/2020 19:04:00 Final Observation Date Value Abnormality Reference (Units ) Status Color of Urine by Auto 08/14/2020 19:55 YELLOW YEL Final Clarity, Urine 08/14/2020 19:55 SLIGHTLY CLOUDY Abnormal CLEAR Final Glucose [Mass/volume] in Urine by Automated test strip 08/14/2020 19:55 NEGATIVE NEG (mg/dL) Final Bilirubin [Presence] in Urine by Automated test strip 08/14/2020 19:55 NEGATIVE NEG Final Ketones [Mass/volume] in Urine by Automated test strip 08/14/2020 19:55 NEGATIVE NEG (mg/dL) Final Specific gravity, Urine 08/14/2020 19:55 1.021 1.003-1.030 Final Hemoglobin [Presence] in Urine by Automated test strip 08/14/2020 19:55 SMALL Abnormal NEG Final pH, Urine 08/14/2020 19:55 6.5 5.0-7.5 (units) Final Protein [Mass/volume] in Urine by Automated test strip 08/14/2020 19:55 TRACE Abnormal NEG (mg/dL) Final Urobilinogen [Mass/volume] in Urine by Automated test strip 08/14/2020 19:55 4 Abnormal NORM (mg/dL) Final Nitrite [Presence] in Urine by Automated test strip 08/14/2020 19:55 NEGATIVE NEG Final Leukocyte esterase [Presence] in Urine by Automated test strip 08/14/2020 19:55 MODERATE Abnormal NEG Final Bacteria [#/area] in Urine by Automated count 08/14/2020 19:55 101-150 Abnormal ZJB596 (/HPF) Final Leukocytes [#/area] in Urine sediment by Automated count 08/14/2020 19:55 30-49 Abnormal U02 (/HPF) Final Erythrocytes [#/area] in Urine sediment by Automated count 08/14/2020 19:55 10-19 Abnormal U02 (/HPF) Final Yeast.budding [Presence] in Urine sediment 08/14/2020 19:55 PRESENT Abnormal NONE (/HPF) Final Hyaline casts [#/area] in Urine sediment by Automated count 08/14/2020 19:55 5-9 Abnormal UM1 (/LPF) Final Performing Location [facility] [address] [facility] [address]
--- OUTSIDE RECORDS SUMMARY | 2023-05-10 21:58 | External Medical Summary ---
Author Name Unknown Address [facility] [address] [place] [id number] Phone Organization K01:[place] [id number] Laboratory Report Ordering Provider Test Date Status SAULO,MASHA 08/14/2020 18:53:00 Final Observation Date Value Abnormality Reference (Units ) Status Lipase 08/14/2020 19:30 12 Below low normal 13-60 (U/L) Final Performing Location [place] [id number]
--- OUTSIDE RECORDS SUMMARY | 2023-05-10 21:58 | External Medical Summary ---
Author Name Unknown Address [address] [facility] [place] [address] Phone Organization K01[facility] [address] [facility] [place] [address] Laboratory Report Ordering Provider Test Date Status MASHA VERNON 08/14/2020 18:53:00 Final Observation Date Value Abnormality Reference (Units) Status WBC, Total 08/14/2020 20:24 2.25 Below low normal 4.00-10.80 (K/uL) Final RBC 08/14/2020 20:24 2.74 Below low normal 3.85-5.15 (M/uL) Final Hemoglobin 08/14/2020 20:24 7.5 Below low normal 12.0-15.3 (g/dL) Final HCT 08/14/2020 20:24 26.2 Below low normal 36.0-45.2 (%) Final MCV 08/14/2020 20:24 95.6 81.5-97.5 (fL) Final MCH 08/14/2020 20:24 27.4 27.0-34.0 (pg) Final MCHC 08/14/2020 20:24 28.6 Below low normal 32.0-36.0 (g/dL) Final RDW 08/14/2020 20:24 22.5 Above high normal 11.5-15.5 (%) Final Platelets 08/14/2020 20:24 75 Below low normal 140-400 (K/uL) Final MPV 08/14/2020 20:24 NO RESULT - ABNORMAL PLATELET DISTRIBUTION 6.6-11.1 (fL) Final Nucleated erythrocytes/100 leukocytes [Ratio] in Blood by Automated count 08/14/2020 20:24 0 0 (/100 WBCs) Final Segs 08/14/2020 20:24 51.1 40-75 (%) Final Lymphs % 08/14/2020 20:24 29.8 18-42 (%) Final Monos 08/14/2020 20:24 10.7 1-11 (%) Final Eosinophils 08/14/2020 20:24 7.1 Above high normal 0-6 (%) Final Basos 08/14/2020 20:24 0.9 0-2 (%) Final Immature Granulocyte, Percent 08/14/2020 20:24 0.4 0-2 (%) Final Neutrophils [#/volume] in Blood 08/14/2020 20:24 1.15 Below low normal 1.8-7.7 (K/uL) Final Lymphs, absolute 08/14/2020 20:24 0.67 Below low normal 1.0-4.8 (K/uL) Final Monos, Abs 08/14/2020 20:24 0.24 0.0-1.1 (K/uL) Final Eos, Abs 08/14/2020 20:24 0.16 0.0-0.7 (K/uL) Final Basos, Abs 08/14/2020 20:24 0.02 0.0-0.2 (K/uL) Final Immature Granulocytes, Number 08/14/2020 20:24 0.01 0.0-0.2 (K/uL) Final Anisocytosis [Presence] in Blood by Light microscopy 08/14/2020 20:24 SLIGHT Final Hypochromia [Presence] in Blood by Light microscopy 08/14/2020 20:24 SLIGHT Final Ovalocytes [Presence] in Blood by Light microscopy 08/14/2020 20:24 FEW Final Dacrocytes [Presence] in Blood by Light microscopy 08/14/2020 20:24 FEW Final Performing Location [facility] [address] [facility] [address]
--- OUTSIDE RECORDS SUMMARY | 2023-05-10 21:58 | External Medical Summary ---
Author Name Unknown Address [address] [place] [address] [place] [address] Phone Organization K01:[place] [id number] Laboratory Report Ordering Provider Test Date Status MASHA VERNON 08/14/2020 18:53:00 Final Observation Date Value Abnormality Reference (Units ) Status Albumin 08/14/2020 19:30 3.4 Below low normal 3.8-5.0 (g/dL) Final AST (Aspartate aminotransferase) 08/14/2020 19:30 53 Above high normal 10-35 (U/L) Final Performing Location [address] [address]
--- OUTSIDE RECORDS SUMMARY | 2023-05-10 21:59 | External Medical Summary ---
Author Name Unknown Address [facility] N [facility] [place] [address] Phone Organization K01:[address] [place] [address] Laboratory Report Ordering Provider Test Date Status DREAD ERAZO 08/12/2020 13:40:00 Final Observation Date Value Abnormality Reference (Units ) Status Lactic Acid 08/12/2020 14:21 1.4 0.4-2.0 (mm ol/L) Final Performing Location [address] [address]
--- OUTSIDE RECORDS SUMMARY | 2023-05-10 21:59 | External Medical Summary ---
Author Name Unknown Address [facility] N [facility] [place] [facility] Phone Organization K01:[place] [id number] Laboratory Report Ordering Provider Test Date Status DREAD ERAZO 08/12/2020 13:40:00 Final Observation Date Value Abnormality Reference (Units ) Status Lipase 08/12/2020 14:20 16 13-60 (U/L) F inal Performing Location [address] [address]
--- OUTSIDE RECORDS SUMMARY | 2023-05-10 21:59 | External Medical Summary | Summary of Care ---
Author Name Unknown Organization [facility] Address [facility] [place] [address] Care Team Providers Care Home Energy Rater Name Role Phone QamarkleberAlexandra fernandez Primary Care Provider [phone] Reason for Visit * Reason Comments Appointment Encounter Details Date Type Department Care Team Description 08/13/2020 Pharmacy Pharmacy, [place] [address] [place] [address] [facility] [address] [place] [address] [phone] Type 2 diabetes mellitus with hemoglobin A1c goal of less than 7.0% ([facility])* Allergies Active Allergy Reactions Severity Noted Date Comments Adhesive Tape Itching 04/29/2020 Penicillins Rash 02/12/2008 Perflutren Protein A Microsph 2019 Definity-lower back pain documented as of this encounter (statuses as of 08/13/2020) Medications Medication Sig Dispensed Refills Start Date [...] 120 Vial 11 10/02/2019 Active nystatin (NYSTOP) 472758 UNIT/GM powder Apply topically to affected area [...] SYSTM) MISC Freestyle Xochitl 2 14-day Sensor (254469) (2 sensors=28 day/1-month supply) 2 Each 1 05/26/2020 Active Continuous Blood Gluc Seed Service Advisor (FREESTYLE XOCHITL 2 READER SYSTM) [place] Freestyle Xochitl 2 14-day Seed Service Advisor (006756) 1 Package 0 05/26/2020 Active famotidine (PEPCID) [...] as of this encounter (statuses as of 08/13/2020) Active Problems Problem Noted Date Uncontrolled type [...] as of this encounter (statuses as of 08/13/2020) Resolved Problems Problem Noted Date Resolved Date [...] pain 01/24/2012 01/17/2017 Genetic Sleep Disorder Research Other*[id number] 05/13/2011 04/07/2016 Obstructive sleep apnea 01/18/2011 12/27/19 [...] as of this encounter (statuses as of 08/13/2020) Immunizations Name Administration Dates Next Due HEP [...] bathing? 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-environmental health technologist helps 07/15/2020 Because of a physical, menta [...] as of this encounter Progress Notes * Karyn Ta OSA - 08/13/2020 10:43 AM EST Patient Phone Numbers Spoke with patient to schedule [facility] appointment for diabetes managment. Appointment scheduled as noted below. Next Office Visit: 08/31/2020 Scheduled Provider(s): [facility] THAD Perdomo 08/13/2020, 10:43 AM documented in this encounter Plan of Treatment Upcoming Encounters Date Type Specialty Care Team Description 08/19/2020 Office Visit Family Medicine Alexandra Caceres, DO [address] [place] [address] [phone] 08/21/2020 Telemedicine Endocrinology Alberta Duque PA-C [address] [place] [address] 08/21/2020 Hem/Onc Treatment Hematology Oncology Alex, Chair 8 Hem/Onc [address] [place] [address] 08/31/2020 [facility] [address] [facility] [address] [phone] 09/01/2020 Nutrition Services Gastroenterology Melissa Omalley, [place] [address] [place] [address] [phone] 09/03/2020 Imaging Radiology 09/15/2020 Office Visit [facility]opedics [facility] [address] [facility] [place] [address] 09/23/2020 Office Visit Gastroenterology Lyssa Stout CRNP [address] [facility] [place] [address] [phone] Health Maintenance Due Date Last Done Comments [...] of this encounter Implants Implanted Type Area Dozer Operator Device Identifier Shelf Expiration Date Model / Serial / Lot Microtech Sure Clip Implanted:Qty: 2 on 06/03/2020 by Janis Hatch DO at OR [facility] Clip N/A: Colon 04/21/2022 [facility]-F-26-2 35-C-R / / [id number] documented as of this encounter Visit Diagnoses Diagnosis Type 2 diabetes mellitus with hemoglobin A1c goal of less than 7.0% (HCC)- Primary documented in this encounter Advance Directives Documents on File Type Date Recorded Patient Operations Expert Expl anation Advanced Directive service a [...] Agents on File Name Relationship Healthcare Agent [facility] Communication Syed Bustos Spouse Emergency Contact
--- OUTSIDE RECORDS SUMMARY | 2023-05-10 21:59 | External Medical Summary | Summary of Care ---
Author Name Unknown Organization [place] [address] Care Team Providers Care Pump Station Operator Name Role Phone Alexandra Caceres Primary Care Provider [phone] Reason for Visit * Reason Onset Date Comments COVID-19 Screening 08/12/2020 Encounter Details Date Type Department Care Team Description 08/12/2020 Telephone COVID19 Screening [facility] [address] [place] [id number], Automated Provider COVID-19 Screening Allergies Active Allergy Reactions Severity Noted Date Comments Adhesive Tape Itching 04/29/2020 Penicillins Rash 02/12/2008 Perflutren Protein A Microsph 2019 Definity-lower back pain documented as of this encounter (statuses as of 08/12/2020) Medications Medication Sig Dispensed Refills Start Date [...] 120 Vial 11 10/02/2019 Active nystatin (NYSTOP) 560123 UNIT/GM powder Apply topically to affected area [...] SYSTM) MIS Freestyle Xochitl 2 14-day Sensor (455030) (2 sensors=28 day/1-month supply) 2 Each 1 05/26/2020 Active Continuous Blood Gluc Temperature Inspector (FREESTYLE XOCHITL 2 READER SYSTM) KORTNEY Freestyle Xochitl 2 14-day Temperature Inspector (309092) 1 Package 0 05/26/2020 Active famotidine (PEPCID) [...] as of this encounter (statuses as of 08/12/2020) Active Problems Problem Noted Date Uncontrolled type [...] as of this encounter (statuses as of 08/12/2020) Resolved Problems Problem Noted Date Resolved Date [...] pain 01/24/2012 01/17/2017 Genetic Sleep Disorder Research Other*[id number] 05/13/2011 04/07/2016 Obstructive sleep apnea 01/18/2011 12/27/19 [...] as of this encounter (statuses as of 08/12/2020) Immunizations Name Administration Dates Next Due HEP [...] or bathing? 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-tracer clerk helps 07/15/2020 Because of a physical, [...] Telephone Encounter - Yaneth Poon Results - 08/12/2020 6:38 PM EST Outreach Attempts IVR Call Aug 11 2020 7:35PM Answered - Failed to Authenticate Results COVID: Negative IVR Message: Unsuccessful contact, no education provided documented in this encounter Plan of Treatment Upcoming Encounters Date Type Specialty Care Team Description 08/13/2020 Pharmacy Pharmacy [facility] [address] [place] [address] [phone] 08/19/2020 Office Visit Family Medicine Alexandra Caceres DO [address] [place] [address] [phone] 08/21/2020 Telemedicine Endocrinology Alberta Duque PA-C [address] [place] [address] 08/21/2020 Hem/Onc Treatment Hematology Oncology [place], Chair 8 Hem/Onc [address] [place] [address] 09/01/2020 Nutrition Services Gastroenterology Melissa Omalley RDN [address] [place] [address] [phone] 09/03/2020 Imaging Radiology 09/15/2020 Office Visit Orthopedics Jayme Benz MD [address] [place] [address] 09/23/2020 Office Visit Gastroenterology Lyssa Stout CRNP [address] [facility] [place] [address] [phone] Health Maintenance Due Date Last Done Comments [...] of this encounter Implants Implanted Type Area Sizing Machine Operator Device Identifier Shelf Expiration Date Model / Serial / Lot Microtech Sure Clip Implanted:Qty: 2 on 06/03/2020 by Janis Hatch DO at OR [facility] Clip N/A: Colon 04/21/2022 [facility]-F-26-2 35-C-R / / [id number] documented as of this encounter Advance Directives Documents on File Type Date Recorded Patient Business Development Professional Expl anation Advanced Directive service a [...] [facility] p Communication Syed Fariasel Spouse Emergency Contact
--- OUTSIDE RECORDS SUMMARY | 2023-05-10 21:59 | External Medical Summary | Summary of Care ---
Author Name Unknown Organization [place] [address] Care Team Providers Care General Foundry Worker Name Role Phone Alexandra Caceres Primary Care Provider [phone] Reason for Visit * Reason Onset Date Comments COVID-19 Screening 08/12/2020 Encounter Details Date Type Department Care Team Description 08/12/2020 Telephone COVID19 Screening [facility] [address] [place] [id number], Automated Provider COVID-19 Screening Allergies Active Allergy [...] 120 Vial 11 10/02/2019 Active nystatin (NYSTOP) 853652 UNIT/GM powder Apply topically to affected area [...] ONCE DAILY 180 Tab 1 05/12/2020 Active cyclobenzaprine (FLEXERIL) 10 MG Tablet TAKE 1 TABLET ONCE DAILY AT BEDTIME 30 Tab 2 05/21/2020 Active escitalopram (LEXAPRO) 20 MG TabletIndications:Re current [...] Gluc Sensor (FREESTYLE XOCHITL 2 SENSOR SYSTM) [facility] Freestyle Xochitl 2 14-day Sensor (398919) (2 sensors=28 day/1-month supply) 2 Each 1 05/26/2020 Active Continuous Blood Gluc Ticket Collector (FREESTYLE XOCHITL 2 READER SYSTM) KORTNEY Freestyle Xochitl 2 14-day Ticket Collector (168946) 1 Package 0 05/26/2020 Active famotidine (PEPCID) [...] before supper 60 mL 3 08/08/2020 Active documented as of this encounter (statuses [...] pain 01/24/2012 01/17/2017 Genetic Sleep Disorder Research Other*[id number] 05/13/2011 04/07/2016 Obstructive sleep apnea 01/18/2011 12/27/19 [...] or bathing? 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-director industrial nursing helps 07/15/2020 Because of a physical, menta [...] * Telephone Encounter - Yaneth Poon - 08/12/2020 7:30 AM EST Outreach Attempts IVR Call Aug 11 2020 7:35PM Answered - Failed to Authenticate Results COVID: Negative IVR Message: Unsuccessful contact, no education provided documented in this encounter Plan of Treatment Upcoming Encounters Date Type Specialty Care Team Description 08/13/2020 Pharmacy Pharmacy [facility] [address] [place] [address] [phone] 08/19/2020 Office Visit Family Medicine Alexandra Caceres, DO [address] [place] [address] [phone] 08/21/2020 Telemedicine Endocrinology Alberta Duque PA-C [address] [place] [address] 08/21/2020 Hem/Onc Treatment Hematology Oncology [place], Chair 8 Hem/Onc [address] [place] [address] 09/01/2020 Nutrition Services Gastroenterology Melissa Omalley RDN [address] [place] [address] [phone] 09/03/2020 Imaging Radiology 09/15/2020 Office Visit Orthopedics Jayme Benz MD [address] [place] [address] 09/23/2020 Office Visit Gastroenterology Lyssa Stout CRNP [address] [facility] [place] [address] [phone] Health Maintenance Due Date Last Done Comments [...] this encounter Implants Implanted Type Area Architectural Drafting Instructor Device Identifier Shelf Expiration Date Model / Serial / Lot Microtech Sure Clip Implanted:Qty: 2 on 06/03/2020 by Janis Hatch DO at OR [facility] Clip N/A: Colon 04/21/2022 [facility]-F-26-2 35-C-R / / [id number] documented as of this encounter Advance Directives Documents on File Type Date Recorded Patient Road Manager Expl anation Advanced Directive service a [...]
--- OUTSIDE RECORDS SUMMARY | 2023-05-10 21:59 | External Medical Summary ---
Author Name Unknown Address [facility] [place] [place] [address] Phone Organization K01:[place] [id number] Laboratory Report Ordering Provider Test Date Status DREAD ERAZO 08/12/2020 13:40:00 Final Observation Date Value Abnormality Reference (Units ) Status BUN 08/12/2020 14:20 12 6-20 (mg/dL) Final Creatinine 08/12/2020 14:20 0.6 0.5-1.0 (mg/ dL) Final E Glom Filt Rate 08/12/2020 14:20 >60.0 >60 Final Performing Location [address] [address]
--- OUTSIDE RECORDS SUMMARY | 2023-05-10 21:59 | External Medical Summary ---
Author Name Unknown Address [address] [facility] [place] [address] Phone Organization K01:[facility] [address] [facility] [place] [address] Laboratory Report Ordering Provider Test Date Status DREAD ERAZO 08/12/2020 13:40:00 Final Observation Date Value Abnormality Reference (Units ) Status WBC, Total 08/12/2020 14:29 3.72 Below low normal 4.00-10.80 (K/uL) Final RBC 08/12/2020 14:29 2.92 Below low normal 3.85-5.15 (M/uL) Final Hemoglobin 08/12/2020 14:29 7.9 Below low normal 12.0-15.3 (g/dL) Final HCT 08/12/2020 14:29 27.9 Below low normal 36.0-45.2 (%) Final MCV 08/12/2020 14:29 95.5 81.5-97.5 (fL) Final MCH 08/12/2020 14:29 27.1 27.0-34.0 (pg) Final MCHC 08/12/2020 14:29 28.3 Below low normal 32.0-36.0 (g/dL) Final RDW 08/12/2020 14:29 22.2 Above high normal 11.5-15.5 (%) Final Platelets 08/12/2020 14:29 88 Below low normal 140-400 (K/uL) Final MPV 08/12/2020 14:29 13.2 Above high normal 6.6-11.1 (fL) Final Nucleated erythrocytes/100 leukocytes [Ratio] in Blood by Automated count 08/12/2020 14:29 1 Above high normal 0 (/100 WBCs) Final Segs 08/12/2020 14:29 61.0 40-75 (%) Final Lymphs % 08/12/2020 14:29 20.4 18-42 (%) Final Monos 08/12/2020 14:29 10.8 1-11 (%) Final Eosinophils 08/12/2020 14:29 6.2 Above high normal 0-6 (%) Final Basos 08/12/2020 14:29 0.8 0-2 (%) Final Immature Granulocyte, Percent 08/12/2020 14:29 0.8 0-2 (%) Final Neutrophils [#/volume] in Blood 08/12/2020 14:29 2.27 1.8-7.7 (K/uL) Final Lymphs, absolute 08/12/2020 14:29 0.76 Below low normal 1.0-4.8 (K/uL) Final Monos, Abs 08/12/2020 14:29 0.40 0.0-1.1 (K/uL) Final Eos, Abs 08/12/2020 14:29 0.23 0.0-0.7 (K/uL) Final Basos, Abs 08/12/2020 14:29 0.03 0.0-0.2 (K/uL) Final Immature Granulocytes, Number 08/12/2020 14:29 0.03 0.0-0.2 (K/uL) Final Anisocytosis [Presence] in Blood by Light microscopy 08/12/2020 14:29 MODERATE Final Polychromasia [Presence] in Blood by Light microscopy 08/12/2020 14:29 SLIGHT Final Hypochromia [Presence] in Blood by Light microscopy 08/12/2020 14:29 SLIGHT Final Ovalocytes [Presence] in Blood by Light microscopy 08/12/2020 14:29 FEW Final Target cells [Presence] in Blood by Light microscopy 08/12/2020 14:29 FEW Final Performing Location [facility] [address] [facility] [address]
--- OUTSIDE RECORDS SUMMARY | 2023-05-10 21:59 | External Medical Summary ---
Author Name Unknown Address [address] [place] [address] Phone Organization K01[facility] [address] [place] [id number] Laboratory Report Ordering Provider Test Date Status DREAD ERAZO 08/12/2020 16:29:00 Final Observation Date Value Abnormality Reference (Units) Status Color of Urine by Auto 08/12/2020 17:07 YELLOW YEL Final Clarity, Urine 08/12/2020 17:07 SLIGHTLY CLOUDY Abnormal CLEAR Final Glucose [Mass/volume] in Urine by Automated test strip 08/12/2020 17:07 NEGATIVE NEG (mg/dL) Final Bilirubin [Presence] in Urine by Automated test strip 08/12/2020 17:07 NEGATIVE NEG Final Ketones [Mass/volume] in Urine by Automated test strip 08/12/2020 17:07 NEGATIVE NEG (mg/dL) Final Specific gravity, Urine 08/12/2020 17:07 >1.050 Above high normal 1.003-1.030 Final Hemoglobin [Presence] in Urine by Automated test strip 08/12/2020 17:07 SMALL Abnormal NEG Final pH, Urine 08/12/2020 17:07 6.5 5.0-7.5 (units) Final Protein [Mass/volume] in Urine by Automated test strip 08/12/2020 17:07 TRACE Abnormal NEG (mg/dL) Final Urobilinogen [Mass/volume] in Urine by Automated test strip 08/12/2020 17:07 2 Abnormal NORM (mg/dL) Final Nitrite [Presence] in Urine by Automated test strip 08/12/2020 17:07 NEGATIVE NEG Final Leukocyte esterase [Presence] in Urine by Automated test strip 08/12/2020 17:07 NEGATIVE NEG Final Bacteria [#/area] in Urine by Automated count 08/12/2020 17:07 0-25 OXW199 (/HPF) Final Leukocytes [#/area] in Urine sediment by Automated count 08/12/2020 17:07 20-29 Abnormal U02 (/HPF) Final Erythrocytes [#/area] in Urine sediment by Automated count 08/12/2020 17:07 50+ Abnormal U02 (/HPF) Final Epithelial cells.squamous [#/area] in Urine sediment by Automated count 08/12/2020 17:07 MANY Abnormal NONE (/HPF) Final Hyaline casts [#/area] in Urine sediment by Automated count 08/12/2020 17:07 30-49 Abnormal UM1 (/LPF) Final Performing Location [facility] [address] [facility] [address]
--- OUTSIDE RECORDS SUMMARY | 2023-05-10 21:59 | External Medical Summary | Summary of Care ---
Author Name Unknown Organization [place] [address] Care Team Providers Care Beach Attendant Name Role Phone NikMaikel fernandez Primary Care Provider Reason for Visit * Reason Comments eRx-Medication Refill Encounter Details Date Type Department Care Team Description 08/10/2020 Refill [place] [address], [place] [id number] Rajwinder Carter DO [address] [place] [address] [phone] Allergies Active Allergy Reactions Severity Noted Date [...] 120 Vial 11 10/02/2019 Active nystatin (NYSTOP) 072658 UNIT/GM powder Apply topically to affected area [...] 1 05/12/2020 Active escitalopram (LEXAPRO) 20 MG TabletIndications :Recurrent major depressive disorder, in partial remission (HCC) TAKE 1 TABLET BY MOUTH ONCE DAILY 90 Tab 1 05/21/2020 Active gabapentin (NEURONTIN) 300 MG Capsule TAKE 1 CAPSULE BY MOUTH IN THE MORNING, 1 CAPSULE MIDDAY, AND 2 CAPSULES IN THE EVENING 180 Cap 2 05/21/2020 Active traZODone (DESYREL) 50 MG TabletIndications [...] SYSTM) MIS Freestyle Xochitl 2 14-day Sensor (405119) (2 sensors=28 day/1-month supply) 2 Each 1 05/26/2020 Active Continuous Blood Gluc Element Winding Machine Tender (FREESTYLE XOCHITL 2 READER SYSTM) [place] Freestyle Xochitl 2 14-day Element Winding Machine Tender (608659) 1 Package 0 05/26/2020 Active famotidine (PEPCID) 20 MG Tablet Take 1 Tab by mouth every night at bedtime. 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-cafeteria director helps 07/15/2020 Because of a physical, [...] Telephone Encounter - Maikel Caceres DO - 08/12/2020 10:54 AM EST Signed Prescriptions: Disp Refills Cyclobenzaprine HCl 10 MG Oral Tablet (FLE*30 Tab 2 Sig: TAKE 1 TABLET BY MOUTH AT BEDTIME Authorizing Provider: MAIKEL CACERES * Telephone Encounter - Hayden Grimes [facility] - 08/11/2020 5:34 AM EST Pending Prescriptions: Disp Refills Cyclobenzaprine HCl 10 MG Oral Tablet (FLE*30 Tab 2 Sig: TAKE 1 TABLET BY MOUTH AT BEDTIME * Telephone Encounter - Hayden Grimes RPh - 08/11/2020 5:34 AM EST Pending Prescriptions: Disp Refills Cyclobenzaprine HCl 10 MG Oral Tablet (FLE*30 Tab 2 Sig: TAKE 1 TABLET BY MOUTH AT BEDTIME Last Office/Telemedicine Visit: 07/27/2020 Next Office Visit: 08/19/2020 Scheduled Provider(s): Maikel Caceres DO If no future appointments scheduled, and last appointment is greater than a year ago, please schedule patient for a follow-up appointment Last date the medication was ordered: 05/21/20 Pharmacy: [id number] [id number] Is this request for a controlled substance?No Urine Drug Screen:No results found. However, due to the size of the patient record, not all encounters were searched. Please check Results Review for a complete set of results. Patient Phone Numbers Labs: Lab Results Component Value Date/Time CREAT 0.7 07/21/2020 03:52 PM POTASSIUM 4.4 07/21/2020 03:52 PM TSH 0.69 07/14/2020 04:24 PM LDLCALC 43 04/05/2019 06:40 AM LDLDIRECT 46 02/21/2020 11:43 AM ALT 21 07/16/2020 04:46 AM HGBA1C 9.9 (H) 07/06/2020 05:24 AM documented in this encounter Plan of Treatment Upcoming Encounters Date Type Specialty Care Team Description 08/13/2020 Pharmacy [facility]acy [facility] [address] [place] [address] [phone] 08/19/2020 Office Visit Family Medicine Maikel Caceres DO [address] [place] [address] [phone] 08/21/2020 Telemedicine Endocrinology Alberta Duque PA-C [address] [place] [address] 08/21/2020 Hem/Onc Treatment Hematology Oncology [place], Chair 8 Hem/Onc [address] [place] [address] 09/01/2020 Nutrition Services Gastroenterology Melissa Omalley, [place] [address] [place] [address] [phone] 09/03/2020 Imaging Radiology 09/15/2020 Office Visit Orthopedics Jayme Benz MD [address] [place] [address] 09/23/2020 Office Visit Gastroenterology Lyssa Stout CRNP [address] [facility] [place] [address] [phone] Health Maintenance Due Date Last Done Comments [...] encounter Implants Implanted Type Area Public Health Program Manager Device Identifier Shelf Expiration Date Model / Serial / Lot Microtech Sure Clip Implanted:Qty: 2 on 06/03/2020 by Janis Hatch DO at OR [facility] Clip N/A: Colon 04/21/2022 [facility]-F-26-2 35-C-R / / [id number] documented as of this encounter Advance Directives Documents on File Type Date Recorded 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
--- OUTSIDE RECORDS SUMMARY | 2023-05-10 22:00 | External Medical Summary | Summary of Care ---
Author Name Unknown Organization [place] [address] Care Team Providers Care Stamping Die Try Out Worker Name Role Phone Maikel Caceres DO Primary Care Provider [phone] Reason for Visit * Reason Onset Date Comments Medication Refill 08/07/2020 Encounter Details Date Type Department Care Team Description 08/07/2020 Refill [place] [address] [place], [place] [id number] Maikel Caceres DO [address] [place] [address] [phone] Allergies Active Allergy Reactions Severity Noted Date Comments Adhesive Tape Itching 04/29/2020 Penicillins Rash 02/12/2008 Perflutren Protein A Microsph 2019 Definity-lower back pain documented as of this encounter (statuses as of 08/08/2020) Medications Medication Sig Dispensed Refills Start Date [...] 120 Vial 11 10/02/2019 Active nystatin (NYSTOP) 918020 UNIT/GM powder Apply topically to affected area [...] 2 05/21/2020 Active escitalopram (LEXAPRO) 20 MG TabletIndications: Recurrent [...] SYSTM) MISC Freestyle Xochitl 2 14-day Sensor (822440) (2 sensors=28 day/1-month supply) 2 Each 1 05/26/2020 Active Continuous Blood Gluc Diagram Clerk (FREESTYLE XOCHITL 2 READER SYSTM) KORTNEY Freestyle Xochitl 2 14-day Diagram Clerk (791725) 1 Package 0 05/26/2020 Active famotidine (PEPCID) [...] before supper 60 mL 3 08/08/2020 Active Insulin Aspart 100 UNIT/ML Subcutaneous Solution (NovoLOG) Inject 26 units under the skin before breakfast, 26 units before lunch, and 30 units before supper 60 mL 3 06/24/2020 0 Discontinue d(Refill) documented as of this encounter (statuses as of 08/08/2020) Active Problems Problem Noted Date Uncontrolled type [...] as of this encounter (statuses as of 08/08/2020) Resolved Problems Problem Noted Date Resolved Date [...] pain 01/24/2012 01/17/2017 Genetic Sleep Disorder Research Other*[id number] 05/13/2011 04/07/2016 Obstructive sleep apnea 01/18/2011 12/27/19 [...] as of this encounter (statuses as of 08/08/2020) Immunizations Name Administration Dates Next Due HEP [...] or bathing? 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-bobbin disker helps 07/15/2020 Because of a physical, menta [...] Notes * Telephone Encounter - Maribeth Munguia [facility] - 08/08/2020 12:20 PM EST Signed Prescriptions: Disp Refills Insulin Aspart 100 UNIT/ML Subcutaneous So*60 mL 3 Sig: Inject 26 units under the skin before breakfast, 26 units before lunch, and 30 units before supper Authorizing Provider: MAIKEL CACERES User: MARIBETH MUNGUIA * Telephone Encounter - Jaci Bangura [facility] - 08/07/2020 1:02 PM EST RX not received at pharmacy Pending Prescriptions: Disp Refills Insulin Aspart 100 UNIT/ML Subcutaneous S*60 mL 3 Sig: Inject 26 units under the skin before breakfast, 26 units before lunch, and 30 units before supper Last Office/Telemedicine Visit: 07/27/2020 Next Office Visit: 08/19/2020 Scheduled Provider(s): Maikel Caceres DO If no future appointments scheduled, and last appointment is greater than a year ago, please schedule patient for a follow-up appointment Last date the medication was ordered: [id number] Jaci Jiang Retail Training Manager Pharmacy Refill Call Center 08/07/2020,1:03 PM Pharmacy: [facility] [id number] Is this request for a controlled [...] Specialty Care Team Description 08/13/2020 Pharmacy Pharmacy [place] [address] [place] [facility] [place] [address] [phone] 08/19/2020 Office Visit Family Medicine Maikel Caceres DO [address] [place] [facility] [place] [address] [phone] 08/21/2020 Telemedicine Endocrinology Alberta Duque PA-C [address] [place] [address] [phone] 08/21/2020 Hem/Onc Treatment Hematology Oncology [place], [address] Hem/Onc [address] [place] [address] [phone] 09/01/2020 Nutrition Services Gastroenterology Melissa Omalley, [place] [address] [place] [address] [phone] 09/03/2020 Imaging Radiology 09/15/2020 Office Visit Orthopedics Jayme Benz MD [address] [facility] [place] [address] [phone] 09/23/2020 Office Visit Gastroenterology Lyssa Stout, ZAK [address] [facility] [place] [address] [phone] Health Maintenance Due Date Last Done Comments [...] of this encounter Implants Implanted Type Area Candle Making Supervisor Device Identifier Shelf Expiration Date Model / Serial / Lot Microtech Sure Clip Implanted:Qty: 2 on 06/03/2020 by Janis Hatch DO at OR [facility] Clip N/A: Colon 04/21/[address] [facility]-F-26-2 35-C-R / / [id number] documented as of this encounter Advance Directives Documents on File Type Date Recorded Patient Medicine Assistant Expl anation Advanced Directive service a [...] on File Name Relationship [facility] Syed Bustos Spouse Emergency Contact
--- OUTSIDE RECORDS SUMMARY | 2023-05-10 22:00 | External Medical Summary | Summary of Care ---
Author Name Unknown Organization [place] [address] Care Team Providers Care Operations Specialists Name Role Phone NickiAlexandra Daisha MORENO Primary Care Provider [phone] Reason for Visit * Reason Comments Treatment Encounter Details Date Type Department Care Team Description 08/07/2020 Hem/Onc Treatment Hematology Oncology [facility], [address] [id number] [place], [place] [address] Hem/Onc [facility] [place] [address] Iron deficiency anemia due to chronic blood loss* Allergies Active Allergy Reactions Severity Noted Date Comments Adhesive Tape Itching 04/29/2020 Penicillins Rash 02/12/2008 Perflutren Protein A Microsph 2019 Definity-lower back pain documented as of this encounter (statuses as of 08/07/2020) Medications Medication Sig Dispensed Refills Start Date [...] 120 Vial 11 10/02/2019 Active nystatin (NYSTOP) 834401 UNIT/GM powder Apply topically to affected area [...] SYSTM) MISC Freestyle Xochitl 2 14-day Sensor (185866) (2 sensors=28 day/1-month supply) 2 Each 1 05/26/2020 Active Continuous Blood Gluc Instructor Weaving (FREESTYLE XOCHITL 2 READER SYSTM) KORTNEY Freestyle Xochitl 2 14-day Instructor Weaving (885948) 1 Package 0 05/26/2020 Active famotidine (PEPCID) [...] daily; E11.42 400 Each 3 06/23/2020 Active Insulin Aspart 100 UNIT/ML Subcutaneous Solution (NovoLOG) Inject 26 units under the skin before breakfast, 26 units before lunch, and 30 units before supper 60 mL 3 06/24/2020 Active Pantoprazole Sodium 20 MG Oral Tablet [...] a day. 60 Each 3 07/27/2020 Active documented as of this encounter (statuses as of 08/07/2020) Active Problems Problem Noted Date Uncontrolled type [...] as of this encounter (statuses as of 08/07/2020) Resolved Problems Problem Noted Date Resolved Date [...] pain 01/24/2012 01/17/2017 Genetic Sleep Disorder Research Other*[id number] 05/13/2011 04/07/2016 Obstructive sleep apnea 01/18/2011 12/27/19 [...] as of this encounter (statuses as of 08/07/2020) Immunizations Name Administration Dates Next Due HEP [...] Reading Time Taken Comments Blood Pressure 116/64 08/07/2020 1:53 PM EST man ual Pulse 74 08/07/2020 1:53 PM EST Temperature 36.5 C (97.7 F) 08/07/2020 1:53 PM ES T Respiratory Rate 16 08/07/2020 1:53 PM EST Oxygen Saturation 97% 08/07/2020 1:53 PM EST Ra at rest Inhaled Oxygen Concentration - - Weight 119.7 kg (264 lb) 08/07/2020 1:53 PM EST Height 149.9 cm (4' 11") 08/07/2020 1:53 PM EST Body Mass Index 53.32 08/07/2020 1:53 PM EST documented in this encounter Functional [...] or bathing? 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-process engineering manager helps 07/15/2020 Because of a physical, [...] as of this encounter Nursing Notes * Saloni Radford LPN - 08/07/2020 2:36 PM EST Chair number 2 in big treatment room documented in this encounter Plan of Treatment Upcoming Encounters Date Type Specialty Care Team Description 08/13/2020 Pharmacy [facility]acy [facility] [address] [facility] [place] [address] [phone] 08/19/2020 Office Visit Family Medicine Alexandra Caceres DO [address] [facility] [place] [address] [phone] 08/21/2020 Telemedicine Endocrinology Alberta Duque PA-C [address] [place] [address] 08/21/2020 Hem/Onc Treatment Hematology Oncology [place], Chair [address] Hem/Onc [address] [place] [address] 09/01/2020 Nutrition Services Gastroenterology Melissa Omalley, RDN [address] [place] [address] [phone] 09/03/2020 Imaging Radiology 09/15/2020 Office Visit Orthopedics Jayme Benz MD [address] [place] [address] 09/23/2020 Office Visit Gastroenterology Lyssa Stout CRNP [address] [facility] [place] [address] [phone] Health Maintenance Due Date Last Done Comments [...] this encounter Implants Implanted Type Area Lace Stripper Device Identifier Shelf Expiration Date Model / Serial / Lot Microtech Sure Clip Implanted:Qty: 2 on 06/03/2020 by Janis Hatch DO at OR [facility] Clip N/A: Colon 04/21/2022 [facility]-F-26-2 35-C-R / / [id number] documented as of this encounter Visit Diagnoses [...] Push, ONCE PRN Other, Hypersensitivity Reaction, Starting 08/07/20 at 1404, Until 08/08/20 at 1403, For 24 hours EPINEPHrine 1 MG/ML inj 0.3 mg 0.3 mg, Intramuscular, ONCE PRN Other, Hypersensitivity Reaction or Anaphylaxis, Starting 08/07/20 at 1404, Until 08/08/20 at 1403, For 24 hours hydrocortisone na succinate pf (SOLU-CORTEF) inj 100 mg 100 mg, IV Push, ONCE PRN Other, Hypersensitivity Reaction, Starting 08/07/20 at 1404, Until 08/08/20 at 1403, For 24 hours NSS infusion 500 mL, Intravenous, at 50 mL/hr, CONTINUOUS, Starting 08/07/20 at 1515, Until 08/08/20 at 0114 Start Infusion 08/07/2020 2:28 PM EST 500 mL 50 mL/hr Inactive Administered Medications - up to 3 most recent administrations Medication Order MAR Action Action Date Dose Rate Site iron sucrose (VENOFER) 300 mg in NSS 100 mL ivpb 300 mg, IV Piggyback, ONCE, 1 dose, 08/07/20 at 1545, Administer over 60 Minutes Start Infusion 08/07/2020 2:31 PM EST 300 mg documented in this encounter Advance Directives Documents on File Type Date Recorded Patient Medical Attendant Expl anation Advanced Directive service a [...]
--- OUTSIDE RECORDS SUMMARY | 2023-05-10 22:00 | External Medical Summary ---
Author Name Unknown Address Unknown Organization [facility]:IT USE ONLY!!! Laboratory Report Ordering Provider Test Date Status STACY DEL TORO 08/05/2020 13:15:00 Final Observation Date Value Abnormality Reference (Units ) Status Glucose Point of Care 08/05/2020 13:16 179 Above high normal 70-120 (mg/dL) Final Performing Location IT USE ONLY!!!
--- OUTSIDE RECORDS SUMMARY | 2023-05-10 22:00 | External Medical Summary | Summary of Care ---
Author Name Unknown Organization [place] [address] Care Team Providers Care Vessel Scrapper Name Role Phone CarlosjosefaAlexandra fernandez Primary Care Provider Reason for Visit * Reason Comments NEW PATIENT injury to big toe rt foot * Evaluate & Treat - Unlimited Visits (Within 10 days (routine)) Status Reason Specialty Diagnoses / Procedures Referred By Contact Referred To Contact Pending Review Specialty Services Required Orthopaedic Surgery / Orthopedics Diagnoses Closed nondisplaced fracture of distal phalanx of right great toe, initial encounter Prakash Honeycutt PA-C [address] [place] [address] Encounter Details Date Type Department Care Team Description 06/16/2020 Office Visit Orthopaedics [place] [address] [place] [address] Jayme Benz MD [address] [place], [place] [id number] Pain of toe of right foot* Allergies Active Allergy Reactions Severity Noted Date Comments Adhesive Tape Itching 04/29/2020 Penicillins Rash 02/12/2008 Perflutren Protein A Microsph 2019 Definity-lower back pain documented as of this encounter (statuses as of 08/04/2020) Medications Medication Sig Dispensed Refills Start Date End Date Status CENTRUM SILVER PO TABS Take 1 Tab by mouth daily. 1 Tab 0 2 Active vitamin c (ASCORBIC ACID) 500 MG Tablet Take 500 mg by mouth daily. 0 Active fluticasone (FLONASE) 50 MCG/ACT nasal sprayIndications: Sinus congestion INSTILL 2 SPRAYS INTO EACH NOSTRIL DAILY DIRECTED 16 g 5 9 Active albuterol sulfate (PROVENTIL) (2.5 MG/3ML) 0.083% nebulizer solutionIndicatio ns:Pulmonary vascular congestion Inhale 1 Vial via nebulizer every 6 hours as needed for Wheezing. 120 Vial 11 0 Active nystatin (NYSTOP) 484974 UNIT/GM powder Apply topically to affected area [...] per day. 1 Kit 0 0 Active Glucose Blood (BLOOD GLUCOSE TEST) STRP Use to test once per day. 100 Strip 3 0 Active Lancets MISC Use to test once per day. 100 Each 3 0 Active levothyroxine (LEVOXYL) 200 MCG Tablet Take 1 Tab by mouth daily. 90 Tab 3 0 Active oxybutynin (DITROPAN) 5 MG Tablet TAKE 1 TABLET BY MOUTH TWICE DAILY 60 Tab 5 0 Active tamsulosin (FLOMAX) 0.4 MG Capsule TAKE 1 CAPSULE BY MOUTH ONCE DAILY 90 Cap 1 0 Active linaCLOtide (LINZESS) 290 MCG Capsule Take 1 Cap by mouth daily before breakfast. 90 Cap 3 0 Active nadolol (CORGARD) 20 MG Tablet TAKE 2 TABLETS BY MOUTH ONCE DAILY 180 Tab 1 0 Active cyclobenzaprine (FLEXERIL) 10 MG Tablet TAKE 1 TABLET ONCE DAILY AT BEDTIME 30 Tab 2 0 Active escitalopram (LEXAPRO) 20 MG TabletIndications :Recurrent major depressive disorder, in partial remission (HCC) TAKE 1 TABLET BY MOUTH ONCE DAILY 90 Tab 1 0 Active gabapentin (NEURONTIN) 300 MG Capsule TAKE 1 CAPSULE BY MOUTH IN THE MORNING, 1 CAPSULE MIDDAY, AND 2 CAPSULES IN THE EVENING 180 Cap 2 0 Active traZODone (DESYREL) 50 MG TabletIndications :Sleep disturbances TAKE 1 TABLET BY MOUTH AT BEDTIME 90 Tab 1 0 Active potassium chloride ER 10 MEQ TBCRIndications:H ypokalemia TAKE 1 TABLET BY MOUTH ONCE DAILY WITH FOOD 90 Tab 3 0 Active silver sulfadiazine (SILVADENE) 1 % cream Apply topically to affected area daily. Apply to right great toe 50 g 0 0 Active Continuous Blood Gluc Sensor (FREESTYLE XOCHITL 2 SENSOR SYSTM) MISC Freestyle Xochitl 2 14-day Sensor (533239) (2 sensors=28 day/1-month supply) 2 Each 1 0 Active Continuous Blood Gluc Grinder Needle Tip (FREESTYLE XOCHITL 2 READER SYSTM) KORTNEY Freestyle Xochitl 2 14-day Grinder Needle Tip (934997) 1 Package 0 0 Active famotidine (PEPCID) 20 MG Tablet Take 1 Tab by mouth every night at bedtime. 34 Tab 0 0 Active Trulicity 1.5 MG/0.5ML Subcutaneous Solution Pen-injector (Dulaglutide)Connie cations:Type 2 diabetes mellitus with hemoglobin A1c goal of less than 7.0% (HCC) Inject 1.5mg (one pen) under the skin once weekly 6 mL 3 0 Active SM ASPIRIN ADULT LOW STRENGTH 81 MG TBEC TAKE 1 TABLET BY MOUTH ONCE DAILY 90 Tab 3 0 06/18/20 20 Discontinued atorvaSTATin (LIPITOR) 40 MG TabletIndications :Dyslipidemia, goal LDL below 70 TAKE 1 TABLET BY MOUTH EVERY NIGHT AT BEDTIME 90 Tab 1 0 07/16/20 20 Discontinued furosemide (LASIX) 20 MG TabletIndications :Localized edema,Venous stasis dermatitis of both lower extremities TAKE 1 TABLET BY MOUTH ONCE DAILY NEEDED FOR EDEMA 30 Tab 5 0 07/16/20 20 Discontinued pantoprazole (PROTONIX) 20 MG TBECIndications:G astroesophageal reflux disease, esophagitis presence not specified,NAFLD (nonalcoholic fatty liver disease),Other cirrhosis of liver (HCC) TAKE 2 TABLETS BY MOUTH ONCE DAILY 180 Tab 1 06/17/202 0 07/07/20 20 Discontinued(Ref ill) insulin glargine (LANTUS SOLOSTAR) 100 UNIT/ML SOPNIndications:T ype 2 diabetes mellitus with hemoglobin A1c goal of less than 7.0% (HCC) inject 24 units under the skin at bedtime 15 mL 5 0 06/19/20 20 Discontinued PEG 5596-SMv-TqLce-Na Cl-NaSulf (GOLYTELY) 227.1 g PACK Drink 2 liters two days before colonoscopy and 2 liters the day before colonoscopy 1 Each 0 0 07/06/20 20 Discontinued(Med ication List Clean Up) MetFORMIN (GLUCOPHAGE) 1000 MG TabletIndications :Type 2 diabetes mellitus with hemoglobin A1c goal of less than 7.0% (HCC) Take 1 Tab by mouth 2 times a day. 180 Tab 1 0 07/06/20 20 Discontinued(Med ication List Clean Up) Insulin Pen Needle (BD PEN NEEDLE MINI U/F) 31G X 5 MMIndications:Typ e 2 diabetes mellitus with hemoglobin A1c goal of less than 7.0% (HCC) Use with lantus daily 100 Each 3 0 06/23/20 20 Discontinued(Ref ill) Clindamycin HCl 300 MG Capsule Take 2 Caps by mouth 3 times a day. 40 Cap 0 0 07/06/20 20 Discontinued(Med ication List Clean Up) Sucralfate 1 GM/10ML Oral Suspension (Carafate) Take 10 mL by mouth 2 times a day. Use twice daily for 4 weeks 600 mL 0 0 07/15/20 20 Discontinued(Med ication List Clean Up) Cephalexin 500 MG Oral Capsule (KEFLEX) Take 1 Cap by mouth 2 times a day. 28 Cap 0 0 07/06/20 20 Discontinued(Med ication List Clean Up) Insulin Aspart 100 UNIT/ML Subcutaneous Solution (NovoLOG) Inject 24 units under the skin before breakfast, 24 units before lunch, and 24 units before supper 60 mL 3 0 06/19/20 20 Discontinued documented as of this encounter (statuses as of 08/04/2020) Active Problems Problem Noted Date Uncontrolled type [...] as of this encounter (statuses as of 08/04/2020) Resolved Problems Problem Noted Date Resolved Date [...] pain 01/24/2012 01/17/2017 Genetic Sleep Disorder Research Other*[id number] 05/13/2011 04/07/2016 Obstructive sleep apnea 01/18/2011 12/27/19 [...] as of this encounter (statuses as of 08/04/2020) Immunizations Name Administration Dates Next Due HEP [...] before you got money to buy more. Never true Within the past 12 months, t he food you bought just didn't last and you didn't have money to get more. Never true Sex Assigned at Date Recorded Female 04/22/2020 3:35 PM E DT Job Start Date Occupation Industry Not on file Not on file Not on file documented as of this encounter Last Filed Vital Signs Vital Sign Reading Time Taken Comments Blood Pressure - - Pulse - - Temperature 36.4 C (97.5 F) 06/16/2020 3:53 PM ED T Respiratory Rate - - Oxygen Saturation - - Inhaled Oxygen Concentration - - Weight - - Height - - Body Mass Index - - documented in this encounter Functional Status Functional Status Response Date of Assess ment Are you deaf or do you have serious difficulty h earing? No 05/25/2020 Are you blind or do you have serious difficulty seeing, even when wearing glasses? No 05/25/2020 Do you have serious difficul ty walking or climbing stairs? 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 05/25/2020 Do you have difficulty dress ing or bathing? 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 05/25/2020 Because of a physical, menta l, or emotional condition, do you have difficulty doing errands alone such as visiting a doctor s office or shopping? (15 years old or older) Yes 05/25/20 Cognitive Status Response Date of Assessm ent Because of a physical, menta l, or emotional condition, do you have serious difficulty concentrating, remembering, or making decisions? (5 years old or older No 05/25/2020 documented as of this encounter Miscellaneous Notes * Outpatient clinic note - Jayme Benz MD - 06/17/2020 6:09 AM EDT CLINIC NOTES RYLAND SHAW MR #[id number] : 1955 06/16/2020 Ryland Shaw is a 65-year-old female status post injury accident to her right foot. She is nonambulatory and currently using a wheelchair and has a nondisplaced fracture of the base of the first metatarsal. EXAM: She has a slight reddish area over the plantar surface of the great toe. She is otherwise able to move her toes. Sensation is somewhat diminished. At this point since she is nonambulator, we will provide her with a hard sole shoe for comfort if she needs it, but otherwise no treatment is necessary other than compression bandage. No need for followup. She understands if the pain increases or she sees a deformity, she is instructed to return. Isaw the above patient with Dr. Gisel Valdez and I agree with his findings and plan. Jayme Benz MD Gum Scoring Machine Operator, Department [place] [address] MS/OMS: Doc#: [id number] documented in this encounter Plan of Treatment Upcoming Encounters Date Type Specialty Care Team Description 08/05/20 Hospital Encounter Surgery Janis Hatch, DO [address] [place] [address] [phone] 08/05/20 Surgery Surgery Janis Hatch, DO [address] [place] [address] [phone] ESOPHAGOGASTRODUODENOSCOPY (EGD), FLEXIBLE, TRANSORAL, DIAGNOSTIC 08/07/20 20 Hem/Onc Treatment Hematology Oncology [place], Chair 8 Hem/Onc [address], [place] [id number] 08/13/20 20 Pharmacy Pharmacy [place], [facility] [address] [place] [address] [phone] 08/19/20 20 Office Visit Family Medicine Alexandra Caceres, DO [address] [place] [address] [phone] 08/21/20 20 Telemedicine Endocrinology Alberta Duque PA-C [address], [place] [id number] 08/21/20 20 Hem/Onc Treatment Hematology Oncology [place], Chair [address] Hem/Onc [address], [place] [id number] 09/01/20 20 Nutrition Services Gastroenterology Melissa Omalley, RDN [address] [facility] [place] [address] 09/03/20 20 Imaging Radiology 09/15/19 21 Office Visit Orthopedics Jayme Benz MD [address] [place], [place] [phone] 09/23/19 21 Office Visit Gastroenterology Lyssa Stout CRNP [address] [place] [address] [phone] Health Maintenance Due Date Last Done Comments [...] of this encounter Implants Implanted Type Area Dean Of Women Device Identifier Shelf Expiration Date Model / Serial / Lot Microtech Sure Clip Implanted:Qty: 2 on 06/03/2020 by Janis Hatch DO at OR [facility] Clip N/A: Colon 04/21/2022 [facility]-F-26-2 35-C-R / / [id number] documented as of this encounter Visit Diagnoses Diagnosis Pain of toe of right foot- Primary Pain in limb Portal hypertension (HCC) Portal hypertension Esophageal varices (HCC) Esophageal varices without mention of bleeding documented in this encounter Advance Directives Documents on File Type Date Recorded Patient Director Appointment Expl anation Advanced Directive service a kerri [...] Date Activated Date Inactivated Comments Full Code 07/15/2020 12:21 AM 07/16/2020 8:26 [...] Directives occurred with: Not Discussed Full Code 05/25/2020 8:43 PM 05/27/2020 12:10 AM This order reflects the patients wishes and were consensually agreed upon. Discussion of Advance Directives occurred with: Patient Does the patient have a Living Will? No Does the patient have Health Care Power of Attor elsie? No Full Code 05/05/2020 5:31 AM 05/05/2020 11:38 PM This order reflects the patients wishes and were consensually agreed upon. Discussion of Advance Directives occurred with: Patient/Family Healthcare Agents on File Name Relationship Healthcare Agent [facility] p Communication Syed Shaw Spouse Emergency Contact
--- OUTSIDE RECORDS SUMMARY | 2023-05-10 22:00 | External Medical Summary | Summary of Care ---
Author Name Unknown Organization [place] [address] Care Team Providers Care Web Analytics Specialist Name Role Phone NickiAlexandra Daisha MORENO Primary Care Provider Reason for Visit * Reason Onset Date Comments Advice 07/28/2020 Encounter Details Date Type Department Care Team Description 07/28/2020 Telephone Hematology/Oncology Treatment, [place] [address] [place] [address] Maryellen, Chair 11 Hem Onc Scenery [address] [place] [address] [phone] Advice Allergies Active Allergy Reactions Severity Noted Date Comments Adhesive Tape Itching 04/29/2020 Penicillins Rash 02/12/2008 Perflutren Protein A Microsph 2019 Definity-lower back pain documented as of this encounter (statuses as of 07/28/2020) Medications Medication Sig Dispensed Refills Start Date [...] 120 Vial 11 10/02/2019 Active nystatin (NYSTOP) 319006 UNIT/GM powder Apply topically to affected area [...] 2 05/21/2020 Active escitalopram (LEXAPRO) 20 MG TabletIndications:Rec urrent [...] SYSTM) MISC Freestyle Xochitl 2 14-day Sensor (063462) (2 sensors=28 day/1-month supply) 2 Each 1 05/26/2020 Active Continuous Blood Gluc Television Inspector (FREESTYLE XOCHITL 2 READER SYSTM) KORTNEY Freestyle Xochitl 2 14-day Television Inspector (954744) 1 Package 0 05/26/2020 Active famotidine (PEPCID) [...] a day 30 mL 3 06/19/2020 Active BD Pen Needle Mini U/F 31G [...] as of this encounter (statuses as of 07/28/2020) Active Problems Problem Noted Date Uncontrolled type [...] as of this encounter (statuses as of 07/28/2020) Resolved Problems Problem Noted Date Resolved Date [...] pain 01/24/2012 01/17/2017 Genetic Sleep Disorder Research Other*[id number] 05/13/2011 04/07/2016 Obstructive sleep apnea 01/18/2011 12/27/19 [...] as of this encounter (statuses as of 07/28/2020) Immunizations Name Administration Dates Next Due HEP [...] or bathing? 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-production estimator helps 07/15/2020 Because of a physical, menta [...] Telephone Encounter - Francine Okeefe RN - 07/28/2020 3:34 PM EST Called and spoke to patient and her Syed on speaker phone. They both stated that patient was told on Monday that she was going to [place] to have a port placed. Explained to both patient and that there must have been miscommunication on Monday as Dr. Sanchez and the INSURANCE CLAIMS PROCESSOR had not spoke about a port or PICC line being placed. Explained that patient is going to [place] to have her IV iron infusions every other week x2 because they have a vein finder. Explained that this is what patient had requested because she does not want to go to [facility]. Pt and both verbalize understanding of the plan of care and that she is to be getting her iron infusions at [facility] as they have a vein finder and that patient is NOT getting a central line. Explained the [facility] scheduling will reach back out to schedule iron infusions. [place]: Please contact patient to schedule 2 hour appt on [facility] schedule for "venofer 1/2"- ZAK Rene is ordering provider. Patient is getting venofer every other week x 2. Thank you * Telephone Encounter - Cherelle Isabel OSA - 07/28/2020 2:02 PM EST Patient is wanting to know when her port will be placed. Please call patient at [phone] documented in this encounter Plan of Treatment Upcoming Encounters Date Type Specialty Care Team Description 08/03/20 Pandemic Screening Ancillary [place], Pre Surgical Covid Testing [facility] [address] [place] [address] 08/03/20 Hem/Onc Treatment H[facility] [place], Chair 11 Hem Onc Scenery [address] [place] [address] [phone] 08/05/20 Hospital Encounter Surgery Janis Hatch, DO [address] [place] [address] [phone] 08/05/20 Surgery Surgery Janis Hatch, DO [address] [place] [address] [phone] ESOPHAGOGASTRODUODENOSCOPY (EGD), FLEXIBLE, TRANSORAL, DIAGNOSTIC 08/13/20 Pharmacy Pharmacy [facility] [address] [place], [place] [id number] 08/19/20 20 Office Visit Family Medicine Alexandra Caceres, DO [address] [place] [address] [phone] 08/21/20 20 Telemedicine Endocrinology Alberta Duque PA-C [address] [place] [address] 09/01/20 20 Nutrition Services Gastroenterology Melissa Omalley RDN [address] [place] [address] [phone] 09/03/20 20 Imaging Radiology 09/15/19 21 Office Visit Orthopedics Jayme Benz MD [address] [place] [address] 09/23/19 21 Office Visit Gastroenterology Lyssa Stout CRNP [address] [facility] [place] [address] [phone] Health Maintenance Due Date Last Done Comments [...] Vaccines (3 - Td) 05/01/2027 05/01/2017, 05/26/2008 *DEPRESSION SCREENING,ANNUAL FOR PTS 12 AND OVER Completed 12/09/2015, 10/20/2014 Influenza Vaccine (FLU shot) Completed , 06/05/2019, 06/05/2019, Additional history exists MENINGOCOCCAL (MENACTRA/MENVEO) Aged Out No longer eligible based on patient's age to complete this topic documented as of this encounter Implants Implanted Type Area Deputy Director Device Identifier Shelf Expiration Date Model / Serial / Lot Microtech Sure Clip Implanted:Qty: 2 on 06/03/2020 by Janis Hatch DO at OR [facility] Clip N/A: Colon 04/21/2022 [facility]-F-26-2 35-C-R / / [id number] documented as of this encounter Advance Directives Documents on File Type Date Recorded Patient Denture Model Maker Expl anation Advanced Directive service a kerri [...] Relationship Healthcare Agent [facility] p Communication Syed Bustos Spouse Emergency Contact
--- OUTSIDE RECORDS SUMMARY | 2023-05-10 22:00 | External Medical Summary ---
Author Name Unknown Address Unknown Organization R:IT USE ONLY!!! Laboratory Report Ordering Provider Test Date Status STACY DEL TORO 08/03/2020 12:49:00 Final Observation Date Value Abnormality Reference (Units ) Status SPECIMEN SOURCE 08/03/2020 12:50 NASAL TURBINATE Final : First test for condition of interest 08/03/2020 12:50 NO Final status 08/03/2020 12:50 UNKNOWN Final Employed in a healthcare setting 08/03/2020 12:50 NO Final Patient was hospitalized because of this condition 08/03/2020 12:50 NO Final Admit to ICU for cond of interest 08/03/2020 12:50 NO Final Resides in congregate care setting 08/03/2020 12:50 NO Final Has symptoms related to cond of interest 08/03/2020 12:50 UNKNOWN Final SARS coronavirus 2 ORF1ab region [Presence] in Respiratory specimen by JANY with probe detection 08/04/2020 16:18 NEGATIVE NEG Final Performing Location IT USE ONLY!!!
--- OUTSIDE RECORDS SUMMARY | 2023-05-10 22:01 | External Medical Summary | Summary of Care ---
Author Name Unknown Organization [place] [address] Care Team Providers Care Tile Mechanic Helper Name Role Phone NickiAlexandra Daisha MORENO Primary Care Provider Reason for Visit * Reason Onset Date Comments Advice 07/28/2020 Encounter Details Date Type Department Care Team Description 07/28/2020 Telephone Hematology/Oncology Treatment, [place] [address] [place] [address] Maryellen, Chair 11 Hem Onc Scenery [address] [place] [address] [phone] Advice Allergies Active Allergy Reactions Severity Noted [...] 120 Vial 11 10/02/2019 Active nystatin (NYSTOP) 045808 UNIT/GM powder Apply topically to affected area [...] SYSTM) MISC Freestyle Xochitl 2 14-day Sensor (966504) (2 sensors=28 day/1-month supply) 2 Each 1 05/26/2020 Active Continuous Blood Gluc Drafter Apprentice (FREESTYLE XOCHITL 2 READER SYSTM) KORTNEY Freestyle Xochitl 2 14-day Drafter Apprentice (682892) 1 Package 0 05/26/2020 Active famotidine (PEPCID) [...] pain 01/24/2012 01/17/2017 Genetic Sleep Disorder Research Other*[id number] 05/13/2011 04/07/2016 Obstructive sleep apnea 01/18/2011 12/27/19 [...] or bathing? 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-wheel and axle inspector helps 07/15/2020 Because of a physical, [...] on Monday that she was going to [place] to have a port placed. Explained to both patient and that there must have been miscommunication on Monday as Dr. Sanchez and the RISK ASSESSMENT CONSULTANT had not spoke about a port or PICC line being placed. Explained that patient is going to [place] to have her IV iron infusions every other week x2 because they have a vein finder. Explained that this is what patient had requested because she does not want to go to [facility]. Pt and both verbalize understanding of the plan of care and that she is to be getting her iron infusions at [facility] as they have a vein finder and that patient is NOT getting a central line. Explained the [facility] scheduling will reach back out to schedule iron infusions. [place]: Please contact patient to schedule 2 hour appt on [facility] schedule for "venofer 1/2"- ZKA Rene is ordering provider. Patient is getting venofer every other week x 2. Thank you * Telephone Encounter - Cherelle Isabel OSA - 07/28/2020 2:02 PM EST Patient is wanting to know when her port will be placed. Please call patient at [phone] documented in this encounter Plan of Treatment Upcoming Encounters Date Type Specialty Care Team Description 08/03/20 Pandemic Screening Ancillary [place], Pre Surgical Covid Testing [place] [address] [place] [address] 08/03/20 Hem/Onc Treatment [place] [place], Chair 11 Hem Onc Scenery [address] [place] [address] [phone] 08/05/20 Hospital Encounter Surgery Janis Hatch, DO [address] [place] [address] [phone] 08/05/20 Surgery Surgery Janis Hatch, DO [address] [place] [address] [phone] ESOPHAGOGASTRODUODENOSCOPY (EGD), FLEXIBLE, TRANSORAL, DIAGNOSTIC 08/13/20 Pharmacy Pharmacy [facility] [address] [place], [place] [id number] 08/19/20 20 Office Visit Family Medicine Alexandra Caceres, DO [address] [place] [address] [phone] 08/21/20 20 Telemedicine Endocrinology Alberta Duque PA-C [address] [place] [address] 09/01/20 20 Nutrition Services Gastroenterology Melissa Omalley RDN [address] [place] [address] [phone] 09/03/20 20 Imaging Radiology 09/15/19 21 Office Visit Orthopedics aJyme Benz MD [address] [place] [address] 09/23/19 21 Office Visit Gastroenterology Lyssa Stout CRNP [address] [facility] [place] [address] [phone] Health Maintenance Due Date Last Done Comments [...] of this encounter Implants Implanted Type Area Propeller Inspector Device Identifier Shelf Expiration Date Model / Serial / Lot Microtech Sure Clip Implanted:Qty: 2 on 06/03/2020 by Janis Hatch DO at OR [facility] Clip N/A: Colon 04/21/2022 [facility]-F-26-2 35-C-R / / [id number] documented as of this encounter Advance Directives Documents on File Type Date Recorded Patient Round Cutter Operator Expl 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
--- OUTSIDE RECORDS SUMMARY | 2023-05-10 22:01 | External Medical Summary | Summary of Care ---
Author Name Unknown Organization [place] [address] Care Team Providers Care Engineering Faculty Name Role Phone Alexandra Caceres Primary Care Provider [phone] Reason for Visit * Reason Onset Date Comments Appointment 07/24/2020 Encounter Details Date Type Department Care Team Description 07/24/2020 Telephone Hematology/Oncology [facility] [address] [place] [address] Tono Sanchez MD [address] [place] [address] [phone] Appointment Allergies Active Allergy Reactions Severity Noted Date Comments Adhesive Tape Itching 04/29/2020 Penicillins Rash 02/12/2008 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 documented as of this encounter (statuses as of 07/27/2020) Medications Medication Sig Dispensed Refills Start Date [...] 120 Vial 11 10/02/2019 Active nystatin (NYSTOP) 460538 UNIT/GM powder Apply topically to affected area [...] SYSTM) MISC Freestyle Xochitl 2 14-day Sensor (542794) (2 sensors=28 day/1-month supply) 2 Each 1 05/26/2020 Active Continuous Blood Gluc Self Propelled Hot Mix Roller Operator (FREESTYLE XOCHITL 2 READER SYSTM) KORTNEY Freestyle Xochitl 2 14-day Self Propelled Hot Mix Roller Operator (499035) 1 Package 0 05/26/2020 Active famotidine (PEPCID) [...] AT BEDTIME 90 Tab 1 07/16/2020 Active documented as of this encounter (statuses as of 07/27/2020) Active Problems Problem Noted Date Uncontrolled type [...] as of this encounter (statuses as of 07/27/2020) Resolved Problems Problem Noted Date Resolved Date [...] pain 01/24/2012 01/17/2017 Genetic Sleep Disorder Research Other*[id number] 05/13/2011 04/07/2016 Obstructive sleep apnea 01/18/2011 12/27/19 [...] as of this encounter (statuses as of 07/27/2020) Immunizations Name Administration Dates Next Due HEP [...] bathing? 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-hot packer helps 07/15/2020 Because of a physical, menta [...] encounter Miscellaneous Notes * Telephone Encounter - Giovana Lorenzo OSA - 07/27/2020 3:20 PM EST Patient calling stating that she was on the phone and the call got disconnected. Please return call to patient to schedule. Patient states that she will be home tomorrow. * Telephone Encounter - Marie Triplett OSA - 07/27/2020 2:38 PM EST Reason for patient's call: patient returning call to [facility]. Caller was transferred to [facility] at the clinic. * Telephone Encounter - Cassie Barboza RN - 07/27/2020 8:44 AM EST [place]: Please contact patient to schedule 2 hour appt on [facility] schedule for "venofer 1/2"- ZAK Rene is ordering provider. Patient will need a 2nd dose of venofer about 2 weeks later if she wants to schedule both appts when you speak to her. Thanks! * Telephone Encounter - Andree Carranza OSA - 07/25/2020 9:42 PM EST NOTE ENTERED * Telephone Encounter - Francine Okeefe RN - 07/24/2020 11:18 AM EST [facility]: Can you please update patient's venofer referral for [facility] per patient's request? Thank you! * Telephone Encounter - Bella Ramires LPN - 07/24/2020 9:58 AM EST Unable to get IV access to infuse venofer. Access was attempted today by 2 nurses without success. This was also the case at prior appt on 07/20/20. Pt would like to be scheduled at [facility] for infusions. Please advise. Pt's home phone is [phone] Cell number is [phone] documented in this encounter Plan of Treatment Upcoming Encounters Date Type Specialty Care Team Description 08/03/20 Pandemic Screening Ancillary [place], Pre Surgical Covid Testing [place] [address] [place] [address] 08/03/20 Hem/Onc Treatment Hematology [place], Chair 11 Hem Onc Scenery [address] [facility] [address] [phone] 08/05/20 Hospital Encounter [facility]atch[facility] [address] [facility] [place] [address] [phone] 08/05/20 Surgery Surgery Janis Hatch, DO [address] [facility] [place] [address] [phone] ESOPHAGOGASTRODUODENOSCOPY (EGD), FLEXIBLE, TRANSORAL, DIAGNOSTIC 08/13/20 Pharmacy Pharmacy [facility] [address] [place], [place] [phone] 08/19/20 20 Office Visit Family Medicine Alexandra Caceres, DO [address] [place] [address] [phone] 08/21/20 20 Telemedicine Endocrinology [facility]que PA-C [address] [facility] [address] 09/01/20 20 Nutrition Services Gastroenterology Melissa Omalley RDN [address] [place] [address] [phone] 09/03/20 20 Imaging Radiology 09/15/19 Office Visit Orthopedics Jayme Benz MD [address] [facility] [place] [address] 09/23/19 21 Office Visit Gastroenterology Lyssa Stout CRNP [address] [place] [address] [phone] Health Maintenance Due Date Last Done Comments [...] this encounter Implants Implanted Type Area Poultry Farm Laborer Device Identifier Shelf Expiration Date Model / Serial / Lot Microtech Sure Clip Implanted:Qty: 2 on 06/03/2020 by Janis Hatch DO at OR [facility] Clip N/A: Colon 04/21/2022 [facility]-F-26-2 35-C-R / / [id number] documented as of this encounter Advance Directives Documents on File Type Date Recorded Patient Toll Gate Tender Expl anation Advanced Directive service a [...] Name Relationship Healthcare Agent [facility] Communication Syed Bustos Spouse Emergency Contact
--- OUTSIDE RECORDS SUMMARY | 2023-05-10 22:01 | External Medical Summary | Summary of Care ---
Author Name Unknown Organization [place] [address] Care Team Providers Care Tech Ed/Woodshop Teacher Name Role Phone Alexandra Caceres Primary Care Provider [phone] Reason for Visit * Reason Onset Date Comments Appointment 07/24/2020 Encounter Details Date Type Department Care Team Description 07/24/2020 Telephone Hematology/Oncology [facility] [address] [place] [address] Tono Sanchez MD [address] [place] [address] [phone] Appointment Allergies Active Allergy Reactions Severity Noted [...] 120 Vial 11 10/02/2019 Active nystatin (NYSTOP) 014173 UNIT/GM powder Apply topically to affected area [...] SYSTM) MISC Freestyle Xochitl 2 14-day Sensor (988424) (2 sensors=28 day/1-month supply) 2 Each 1 05/26/2020 Active Continuous Blood Gluc Optometric Technician (FREESTYLE XOCHITL 2 READER SYSTM) KORTNEY Freestyle Xochitl 2 14-day Optometric Technician (980711) 1 Package 0 05/26/2020 Active famotidine (PEPCID) [...] pain 01/24/2012 01/17/2017 Genetic Sleep Disorder Research Other*[id number] 05/13/2011 04/07/2016 Obstructive sleep apnea 01/18/2011 12/27/19 [...] or bathing? 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-grocery supervisor helps 07/15/2020 Because of a physical, [...] for patient's call: patient returning call to [facility]. Caller was transferred to [facility] at the clinic. * Telephone Encounter - Cassie Barboza RN - 07/27/2020 8:44 AM EST [place]: Please contact patient to schedule 2 hour [...] Pt would like to be scheduled at [facility] for infusions. Please advise. Pt's home phone is [phone] Cell number is [phone] documented in this encounter Plan of Treatment Upcoming Encounters Date Type Specialty Care Team Description 08/03/20 Pandemic Screening Ancillary [place], Pre Surgical Covid Testing [place] [address] [place] [address] 08/03/20 Hem/Onc Treatment H[facility]ology [place], Chair 11 Hem Onc Scenery [address] [facility] [address] [phone] 08/05/20 Hospital Encounter [facility]atch[facility] [address] [facility] [place] [address] [phone] 08/05/20 Surgery Surgery Janis Hatch, DO [address] [facility] [place] [address] [phone] ESOPHAGOGASTRODUODENOSCOPY (EGD), FLEXIBLE, TRANSORAL, DIAGNOSTIC 08/13/20 Pharmacy Pharmacy [facility] [address] [place], [place] [phone] 08/19/20 20 Office Visit Family Medicine Alexandra Caceres, DO [address] [place] [address] [phone] 08/21/20 20 Telemedicine Endocrinology Alberta Duque PA-C [address] [facility] [address] 09/01/20 20 Nutrition Services Gastroenterology Melissa Omalley RDN [address] [place] [address] [phone] 09/03/20 20 Imaging Radiology 09/15/19 Office Visit Orthopedics Jayem Benz MD [address] [facility] [place] [address] 09/23/19 21 Office Visit Gastroenterology Lyssa Stout CRNP [address] [place] [address] [phone] Health Maintenance Due Date Last Done Comments [...] this encounter Implants Implanted Type Area Stone And Concrete Washer Device Identifier Shelf Expiration Date Model / Serial / Lot Microtech Sure Clip Implanted:Qty: 2 on 06/03/2020 by Janis Hatch DO at OR [facility] Clip N/A: Colon 04/21/2022 [facility]-F-26-2 35-C-R / / [id number] documented as of this encounter Advance Directives Documents on File Type Date Recorded Patient Intern Product Marketing Manager Expl anation Advanced Directive service a [...] File Name Relationship Healthcare Agent [facility] Communication Syed Bustos Spouse Emergency Contact
--- OUTSIDE RECORDS SUMMARY | 2023-05-10 22:02 | External Medical Summary | Summary of Care ---
Author Name Unknown Organization [facility] Address [facility] [place] [address] Care Team Providers Care Sand Hauler Name Role Phone Alexandra Caceres DO Primary Care Provider Reason for Visit * Reason Onset Date Comments Advice 07/24/2020 Encounter Details Date Type Department Care Team Description 07/24/2020 Telephone [facility] [address], [place] [id number] Alexandra Caceres DO [address] [place] [address] [phone] Advice Allergies Active Allergy Reactions Severity Noted [...] 120 Vial 11 10/02/2019 Active nystatin (NYSTOP) 452331 UNIT/GM powder Apply topically to affected area [...] SYSTM) MISC Freestyle Xochitl 2 14-day Sensor (464531) (2 sensors=28 day/1-month supply) 2 Each 1 05/26/2020 Active Continuous Blood Gluc Sleeping Car Conductor (FREESTYLE XOCHITL 2 READER SYSTM) KORTNEY Freestyle Xochitl 2 14-day Sleeping Car Conductor (211073) 1 Package 0 05/26/2020 Active famotidine (PEPCID) [...] pain 01/24/2012 01/17/2017 Genetic Sleep Disorder Research Other*[id number] 05/13/2011 04/07/2016 Obstructive sleep apnea 01/18/2011 12/27/19 [...] or bathing? 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-services mgr helps 07/15/2020 Because of a physical, menta [...] Telephone Encounter - Alexandra Caceres DO - 07/27/2020 8:40 AM EST Has an appt today * Telephone Encounter - Michaelle Lindquist LPN - 07/24/2020 2:18 PM EST FYI pt wanted to let Dr Caceres know. * Telephone Encounter - Christopher Garcia OSA - 07/24/2020 12:12 PM EST Pt states that hem/onc want to put a port in her arm to give her blood. They stuck her 8 times and couldn't find her vein. Pt wants to go to [place] to get it done. documented in this encounter Plan of Treatment Upcoming Encounters Date Type Specialty Care Team Description 07/27/20 Office Visit Family Medicine Alexandra Caceres, [address] [facility] [address] [phone] 07/27/20 Office [facility]enterology Essence [facility] [place] [address] [phone] 08/03/20 Hem/Onc Treatment H[facility]ology [address] [place], [address] [facility] [address] [phone] 08/05/20 Hospital Encounter Surgery Janis Hatch, [address] [place] [address] [phone] 08/05/20 Surgery Surgery Janis Hatch, [address] [facility] [place] [address] [phone] ESOPHAGOGASTRODUODENOSCOPY (EGD), FLEXIBLE, TRANSORAL, DIAGNOSTIC 08/13/20 Pharmacy Pharmacy [facility] [address] [place] [address] [phone] 08/19/20 20 Office Visit Family Medicine Alexandra Caceres DO [address] [place] [address] [phone] 08/21/20 20 Telemedicine Endocrinology Alberta Duque PA-C [address] [place] [address] 09/03/20 20 Imaging Radiology 09/15/19 21 Office Visit Orthopedics Jayme Benz MD [address] [place] [address] 09/23/19 21 Office Visit Gastroenterology [facility]sa Stout [facility] [address] [facility] [address] [phone] Health Maintenance Due Date Last Done Comments [...] this encounter Implants Implanted Type Area Nurse Midwife/Clinical Instructor Device Identifier Shelf Expiration Date Model / Serial / Lot Microtech Sure Clip Implanted:Qty: 2 on 06/03/2020 by Janis Hatch DO at OR [facility] Clip N/A: Colon 04/21/2022 [facility]-F-26-2 35-C-R / / [id number] documented as of this encounter Advance Directives Documents on File Type Date Recorded Patient Retail Asset Protection Specialist Expl 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 File Name Relationship Healthcare [facility] Syed Bustos Spouse Emergency Contact
--- OUTSIDE RECORDS SUMMARY | 2023-05-10 22:02 | External Medical Summary | Summary of Care ---
Author Name Unknown Organization [place] [address] Care Team Providers Care Extrusion Press Operator Name Role Phone Alexandra Caceres DO Primary Care Provider Reason for Visit * Reason Onset Date Comments Medication Problem 07/27/2020 Encounter Details Date Type Department Care Team Description 07/27/2020 Telephone [facility] [address] [place] [address] Alexandra Caceres DO [address] [place], [place] [id number] Medication Problem Allergies Active Allergy Reactions Severity Noted Date [...] 120 Vial 11 10/02/2019 Active nystatin (NYSTOP) 965125 UNIT/GM powder Apply topically to affected area [...] SYSTM) MISC Freestyle Xochitl 2 14-day Sensor (004620) (2 sensors=28 day/1-month supply) 2 Each 1 05/26/2020 Active Continuous Blood Gluc Barrel Inspector Tight (FREESTYLE XOCHITL 2 READER SYSTM) KORTNEY Freestyle Xochitl 2 14-day Barrel Inspector Tight (785938) 1 Package 0 05/26/2020 Active famotidine (PEPCID) [...] a day. 60 Each 3 07/27/2020 Active Fluticasone-Salmet jayme 250-50 MCG/DOSE Inhalation Aerosol Powder Breath Activated (Advair Diskus)Indications :Moderate persistent asthma with acute exacerbation Inhale 1 Puff by mouth 2 times a day. 14 Each 3 07/27/2020 07/27/2020 Discontinue d(Refill) documented as of this encounter [...] pain 01/24/2012 01/17/2017 Genetic Sleep Disorder Research Other*[id number] 05/13/2011 04/07/2016 Obstructive sleep apnea 01/18/2011 12/27/19 [...] or bathing? 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-loom starter helps 07/15/2020 Because of a physical, menta [...] encounter Miscellaneous Notes * Telephone Encounter - Cori Wilder CPhT - 07/27/2020 1:08 PM EST [facility] calling asking about Advair rx. Rx was written for 7DS. Anyway they can get a new rx for the 30DS with a qty of #60? Please send new rx to [facility]. [facility] can be reached: [phone] Thanks, Cori Wilder CPhT Design Drafter Pharm[facility] Refill Call Center 07/27/2020,1:09 PM documented in this encounter Plan of Treatment Upcoming Encounters Date Type Specialty Care Team Description 08/03/20 Pandemic Screening Ancillary Fernandes, Pre Surgical Covid Testing Chau [address] [place] [address] 08/03/20 Hem/Onc Treatment Hematology [address], [address] Hem Onc [address] [place] [address] [phone] 08/05/20 Hospital Encounter Surgery Janis Hatch DO [address] [place] [address] [phone] 08/05/20 20 Surgery Surgery Janis Hatch, DO 132 [facility] [place] [address] [phone] ESOPHAGOGASTRODUODENOSCOPY (EGD), FLEXIBLE, TRANSORAL, DIAGNOSTIC 08/13/20 Pharmacy Pharmacy [facility] [address] [place], [place] [id number] 08/19/20 20 Office Visit Family Medicine Alexandra Caceres, DO [address] [place] [address] [phone] 08/21/20 20 Telemedicine Endocrinology Alberta Duque PA-C [address], [place] [address] 09/03/20 20 Imaging Radiology 09/15/19 21 Office Visit Orthopedics Jayme Benz MD [address] [place], [place] [id number] 09/23/19 21 Office Visit Gastroenterology Lyssa Stout CRNP 132 [facility] [place] [address] [phone] Health Maintenance Due Date Last Done Comments [...] of this encounter Implants Implanted Type Area Protohistorian Device Identifier Shelf Expiration Date Model / Serial / Lot Microtech Sure Clip Implanted:Qty: 2 on 06/03/2020 by Janis Hatch DO at OR [facility] Clip N/A: Colon 04/21/2022 [facility]-F-26-2 35-C-R / / [id number] documented as of this encounter Visit Diagnoses Diagnosis Moderate persistent asthma with acute exacerbation Portal hypertension (HCC) Portal hypertension Esophageal varices (HCC) Esophageal varices without mention of bleeding documented in this encounter Advance Directives Documents on File Type Date Recorded Patient Associate Editor Expl anation Advanced Directive service a [...]
--- OUTSIDE RECORDS SUMMARY | 2023-05-10 22:02 | External Medical Summary | Summary of Care ---
Author Name Unknown Organization [facility] Address [place] [address] Care Team Providers Care Consumer Affairs Manager Name Role Phone Alexandra Caceres Primary Care Provider [phone] Encounter Details Date Type Department Care Team Description 07/27/2020 Orders Only ENDO [facility], Endoscopy Suite [facility] [address] [place] [address] Janis Hatch DO 132 [facility] [place] [address] Preop testing* Allergies Active Allergy Reactions Severity Noted Date [...] 120 Vial 11 10/02/2019 Active nystatin (NYSTOP) 187574 UNIT/GM powder Apply topically to affected area [...] SYSTM) MISC Freestyle Xochitl 2 14-day Sensor (260612) (2 sensors=28 day/1-month supply) 2 Each 1 05/26/2020 Active Continuous Blood Gluc Plaster Applicator (FREESTYLE XOCHITL 2 READER SYSTM) KORTNEY Freestyle Xochitl 2 14-day Plaster Applicator (326384) 1 Package 0 05/26/2020 Active famotidine (PEPCID) [...] pain 01/24/2012 01/17/2017 Genetic Sleep Disorder Research Other*[id number] 05/13/2011 04/07/2016 Obstructive sleep apnea 01/18/2011 12/27/19 [...] or bathing? 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-upper and bottom lacer hand helps 07/15/2020 Because of a physical, [...] Care Team Description 07/27/20 Office Visit Family Alexandra Arrington, DO [address] [facility] [address] [phone] 07/27/20 Office Visit Gastroenterology Essence Chase PA-C [address] [place] [address] [phone] 08/03/20 Pandemic Screening Ancillary Fernandes, Pre Surgical Covid Testing [place] [address] [place] [address] 08/03/20 20 Hem/Onc Treatment Hematology [address], [address] [facility], [place] [address] [phone] 08/05/20 20 Hospital Encounter Surgery Janis Hatch, DO [address] [facility] [place] [address] [phone] 08/05/20 20 Surgery Surgery Janis Hatch, DO [address] [facility] [place] [address] [phone] ESOPHAGOGASTRODUODENOSCOPY (EGD), FLEXIBLE, TRANSORAL, DIAGNOSTIC 08/13/20 [facility] [address] [facility] [address] [phone] 08/19/20 20 Office Visit Family Alexandra Arrington, DO [address] [facility] [address] [phone] 08/21/20 20 Telemedicine Endocrinology Alberta Duque PA-C [address], [place] [address] 09/03/20 20 Imaging Radiology 09/15/19 21 Office Visit Orthopedics Jayme Benz MD [address] [place] [address] 09/23/19 21 Office Visit Gastroenterology Lyssa Stout CRNP 132 [facility] [place] [address] [phone] Scheduled Orders Name Type Priority Associated Diagnoses Orde r Schedule COVID-19 Lab Routine Preop testing Expected: 07/28/2020, Expires: 0 Health Maintenance Due Date Last Done Comments [...] of this encounter Implants Implanted Type Area Parachute Folder Device Identifier Shelf Expiration Date Model / Serial / Lot Microtech Sure Clip Implanted:Qty: 2 on 06/03/2020 by Janis Hatch DO at OR [facility] Clip N/A: Colon 04/21/2022 [facility]-F-26-2 35-C-R / / [id number] documented as of this encounter Visit Diagnoses Diagnosis Preop testing- Primary Preoperative examination, unspecified Portal hypertension (HCC) Portal hypertension Esophageal varices (HCC) Esophageal varices without mention of bleeding documented in this encounter Advance Directives Documents on File Type Date Recorded Patient Card Hand Expl anation Advanced Directive service a [...]
--- OUTSIDE RECORDS SUMMARY | 2023-05-10 22:02 | External Medical Summary | Summary of Care ---
Author Name Unknown Organization [place] [address] Care Team Providers Care Grass Farm Laborer Name Role Phone Alexandra Caceres DO Primary Care Provider [phone] Reason for Visit * Reason Comments Hospital Follow-Up Encounter Details Date Type Department Care Team Description 07/27/2020 Office Visit [facility] [address] [place] [address] Alexandra Caceres DO [address] [place] [address] [phone] Moderate persistent asthma with acute exacerbation*; Cirrhosis of liver without ascites, unspecified hepatic cirrhosis type (HCC); Type 2 diabetes mellitus with hemoglobin A1c goal of less than 7.0% (HCC); Diabetic ulcer of right great toe (HCC); HTN, goal below 140/90; Pancytopenia (HCC) Allergies Active Allergy Reactions Severity [...] 120 Vial 11 10/02/2019 Active nystatin (NYSTOP) 688295 UNIT/GM powder Apply topically to affected area [...] SYSTM) MISC Freestyle Xochitl 2 14-day Sensor (371733) (2 sensors=28 day/1-month supply) 2 Each 1 05/26/2020 Active Continuous Blood Gluc Director Executive Communications (FREESTYLE XOCHITL 2 READER SYSTM) KORTNEY Freestyle Xochitl 2 14-day Director Executive Communications ([id number]) 1 Package 0 05/26/2020 Active famotidine (PEPCID) [...] pain 01/24/2012 01/17/2017 Genetic Sleep Disorder Research Other*[id number] 05/13/2011 04/07/2016 Obstructive sleep apnea 01/18/2011 12/27/19 [...] Sign Reading Time Taken Comments Blood Pressure 126/74 07/27/2020 11:14 AM EST Pulse 66 07/27/2020 11:14 AM EST Temperature 36.7 C (98.1 F) 07/27/2020 11:[address] Respiratory Rate 20 07/27/2020 11:14 AM EST Oxygen Saturation 98% 07/27/2020 11:14 AM EST Inhaled Oxygen Concentration - - [...] encounter Progress Notes * Alexandra Caceres, - 07/27/2020 11:24 AM EST Subjective: Shaina Bustos is a 65 year old female. Chief Complaint Patient presents with Hospital Follow-Up HPI: 65 year old female here today for a hospital follow up. She was in the ED on 07/21 for shortness of breath. She was found to be pancytopenic, CXR negative, negative troponin, and was given a nebtreatment. this seemed to improve her breathing. She was discharged from the ER. Shaina carries hx of Type 2 diabetes, Pancytopenia, due to cirrhosis of the liver, and splenomegaly,Esophageal Varices, her last EGD was 06/03/2020 and showed nonbleeding grade 1 esophageal varices, and her next EGD is scheduled for Aug 05. She was also in the ER about 1 week prior for generalized weakness and found to have hyperglycemia,She had neuroimaging to include CT head and this was normal. For her diabetes she is on Lantus, Novolog, Trulicity,, and Metformin. She sees Dr Kilpatrick in [place] for her diabetic management. She sees wound care in [place] for her chronic wound infection. This has now pretty much cleared up. To note she wears oxygen at night, and pulse ox today was 95 on Room air. PHM: Patient Active Problem List Diagnosis Code [...] Chronic pain syndrome G89.4 MEDICATION USE AGREEMENT HI6460 Cirrhosis of liver ([facility]) K74.60 [...] M76.61 DNR (do not resuscitate) Z66 Thrombocytopenia ([facility]) D69.6 Iron deficiency anemia due to chronic blood loss D50.0 Splenomegaly R16.1 Cellulitis of right lower extremity L03.115 Cellulitis of right toe L03.031 Diabetic ulcer of right great toe ([facility]) E11.621, L97.519 Bacteremia R78.81 Acute blood loss anemia D62 Esophagitis K20.90 Esophageal varices ([facility]) I85.00 Uncontrolled type 2 diabetes mellitus with hyperglycemia ([facility]) E11.65 Current Outpatient Medications Medication Sig Dispense Refill Atorvastatin Calcium 40 MG Oral Tablet (LIPITOR) TAKE 1 TABLET BY MOUTH AT BEDTIME 90 Tab 1 Furosemide 20 MG Oral Tablet (LASIX) TAKE 1 TABLET BY MOUTH once DAilY NEEDED for edema 90 Tab 1 Pantoprazole Sodium 20 MG Oral Tablet Delayed Release (PROTONIX) Take 2 Tabs by mouth 2 times aday. 180 Tab 1 Insulin Aspart 100 UNIT/ML Subcutaneous Solution (NovoLOG) Inject 26 units under the skin before breakfast, 26 units before lunch, and 30 units before supper 60 mL 3 BD Pen Needle Mini U/F 31G X 5 MM (Insulin Pen Needle) Use to inject insulin four times daily; E11.42 400 Each 3 Lantus SoloStar 100 UNIT/ML Subcutaneous Solution Pen-injector (insulin glargine) Inject 30 units under the skin once a day 30 mL 3 Trulicity 1.5 MG/0.5ML Subcutaneous Solution Pen-injector (Dulaglutide) Inject 1.5mg (one pen) under the skin once weekly 6 mL 3 famotidine (PEPCID) 20 MG Tablet Take 1 Tab by mouth every night at bedtime. 34 Tab 0 Continuous Blood Gluc Director Executive Communications (FREESTYLE XOCHITL 2 READER SYSTM) KORTNEY Freestyle Xochitl 2 14-day Director Executive Communications ([id number]) 1 Package 0 Continuous Blood Gluc Sensor (FREESTYLE XOCHITL 2 SENSOR SYSTM) MISC Freestyle Xochitl 2 14-day Sensor (155745) (2 sensors=28 day/1-month supply) 2 Each 1 silver sulfadiazine (SILVADENE) 1 % cream Apply topically to affected area daily. Apply to right great toe 50 g 0 potassium chloride ER 10 MEQ TBCR TAKE 1 TABLET BY MOUTH ONCE DAILY WITH FOOD 90 Tab 3 cyclobenzaprine (FLEXERIL) 10 MG Tablet TAKE 1 TABLET ONCE DAILY AT BEDTIME 30 Tab 2 escitalopram (LEXAPRO) 20 MG Tablet TAKE 1 [...] to test once perday. 1 Kit 0 Glucose Blood (BLOOD GLUCOSE TEST) STRP Use to test once per day. 100 Strip 3 Lancets MISC Use to test once per day. 100 Each 3 Albuterol Sulfate (ALBUTEROL HFA) 108 (90 BASE) MCG/ACT inhaler Inhale 2 Puffs by mouth every 4hours as needed for Cough or Wheezing. With spacer 16 g 1 nystatin (NYSTOP) 613780 UNIT/GM powder Apply topically to affected area [...] A Microsph Definity-lower back pain Objective: BP 126/74 | Pulse 66 | Temp 36.7 C (98.1 F) | Resp 20 | SpO2 98% Physical Exam: General: alert, ill looking and mild distress Heart: regular rate & rhythm, no murmurs and no gallops Lungs: coarse sounds heard, expiratory wheezes bilaterally Extremities: chronic venous stasis changes. No lesion and or wound on the R great toe ASSESSMENT/PLAN: Moderate persistent asthma with acute exacerbation (Primary) - Ipratropium-Albuterol 0.5-2.5 (3) MG/3ML Inhalation Solution (DUONEB); Inhale 3 mL via nebulizer 4 times a day. - Fluticasone-Salmeterol 250-50 MCG/DOSE Inhalation Aerosol Powder Breath Activated (Advair Diskus); Inhale 1 Puff by mouth 2 times a day. Add in Duo neb, and Advair. Cirrhosis of liver without ascites, unspecified hepatic cirrhosis type (HCC) On Nadolol. Type 2 diabetes mellitus with hemoglobin A1c goal of less than 7.0% (HCC) Stable. Diabetic ulcer of right great toe (HCC) Healed. HTN, goal below 140/90 Stable. Pancytopenia (HCC) --per pt they plan on placing PICC line, and will be doing IV venofer every 2 weeks. Keep August. Alexandra Caceres DO documented in this encounter Nursing Notes * Michaelle Lindquist LPN - 07/27/2020 11:10 AM EST Chief Complaint Patient presents with Hospital Follow-Up documented in this encounter Plan of Treatment Upcoming Encounters Date Type Specialty Care Team Description 08/03/20 Pandemic Screening Ancillary Fernandes, Pre Surgical Covid Testing [address] [place] [address] 08/03/20 Hem/Onc Treatment Hematology [address] [place] [address] [phone] 08/05/20 Hospital Encounter Surgery Janis Hatch DO [address] [place] [address] [phone] 08/05/20 Surgery Surgery Janis Hatch DO [address] [place] [address] [phone] ESOPHAGOGASTRODUODENOSCOPY (EGD), FLEXIBLE, TRANSORAL, DIAGNOSTIC 08/13/20 Pharmacy Pharmacy [facility] [address] [place] [address] [phone] 08/19/20 20 Office Visit Family Medicine Alexandra Caceres, [address] [place] [address] [phone] 08/21/20 20 Telemedicine Endocrinology Alberta Duque PA-C [address] [place] [address] 09/03/20 20 Imaging Radiology 09/15/19 21 Office Visit Orthopedics Jayme Benz MD [address] [place] [address] 09/23/19 21 Office Visit Gastroenterology Lyssa Stout CR[facility] [address] [facility] [address] [phone] Health Maintenance Due Date Last Done Comments [...] of this encounter Implants Implanted Type Area Surgery Aid Device Identifier Shelf Expiration Date Model / Serial / Lot Microtech Sure Clip Implanted:Qty: 2 on 06/03/2020 by Janis Hatch DO at OR [facility] Clip N/A: Colon 04/21/2022 [facility]-F-26-2 35-C-R / / [id number] documented as of this encounter Visit Diagnoses Diagnosis Moderate persistent asthma with acute exacerbation- Primary Cirrhosis of liver without ascites, unspecified hepatic cirrhosis type (HCC) Type 2 diabetes mellitus with hemoglobin A1c goal of less than 7.0% (HCC) Diabetic ulcer of right great toe (HCC) Type II or unspecified type diabetes mellitus with other specified manifestations, not stated as uncontrolled HTN, goal below 140/90 Unspecified essential hypertension Pancytopenia (HCC) Other pancytopenia Portal hypertension (HCC) Portal hypertension Esophageal varices (HCC) Esophageal varices without mention of bleeding documented in this encounter Advance Directives Documents on File Type Date Recorded Patient Acute Care Registered Nurse Expl anation Advanced Directive service a [...]
--- OUTSIDE RECORDS SUMMARY | 2023-05-10 22:02 | External Medical Summary | Summary of Care ---
Author Name Unknown Organization [facility] Address [facility] [place] [address] Care Team Providers Care Abattoir Supervisor Name Role Phone NickiAlexandra Daisha MORENO Primary Care Provider Reason for Visit * Reason Comments Weight Management 3 month follow up Encounter Details Date Type Department Care Team Description 07/27/2020 Office Visit Nutrition & Weight Management, [facility] [address] [place] [address] Essence Chase PA-C [address] [facility] [place] [address] [phone] HTN, goal below 140/90*; Gastroesophageal reflux disease, unspecified whether esophagitis present; Esophagitis; THAD on CPAP; Primary osteoarthritis of right knee; Recurrent major depressive disorder, in partial remission ([facility]); Wheelchair dependent; Type 2 diabetes mellitus with hemoglobin A1c goal of less than 7.0% ([facility]); Impaired mobility and ADLs; Intermittent asthma with reliever use up to twice per week without complication; Dyslipidemia, goal LDL below 70 Allergies Active [...] 120 Vial 11 10/02/2019 Active nystatin (NYSTOP) 783457 UNIT/GM powder Apply topically to affected area [...] SYSTM) MISC Freestyle Xochitl 2 14-day Sensor (473634) (2 sensors=28 day/1-month supply) 2 Each 1 05/26/2020 Active Continuous Blood Gluc Cloth Laminating Supervisor (FREESTYLE XOCHITL 2 READER SYSTM) KORTNEY Freestyle Xochitl 2 14-day Cloth Laminating Supervisor ([id number]) 1 Package 0 05/26/2020 Active famotidine (PEPCID) [...] pain 01/24/2012 01/17/2017 Genetic Sleep Disorder Research Other*[id number] 05/13/2011 04/07/2016 Obstructive sleep apnea 01/18/2011 12/27/19 [...] Sign Reading Time Taken Comments Blood Pressure 133/68 07/27/2020 1:37 PM EST Pulse 66 07/27/2020 1:37 PM EST Temperature 36 C (96.8 F) 07/27/2020 1:37 PM EST Respiratory Rate - - Oxygen [...] or bathing? 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-equity analyst helps 07/15/2020 Because of a physical, [...] as of this encounter Progress Notes * Essence Chase PA-C - 07/27/2020 1:52 PM EST [facility] Clinic Note Shaina Belen Fariasel presents in follow up to the comprehensive weight management clinic. The patient is a 65 year old female with PMH significant for anxiety disorder, degenerative joint disease, diabetes mellitus, hypercholesterolemia, morbid obesity, nonsuicidal depression, hypothyroidism, esophageal reflux disease, steathohepatitis, cerebral palsy whom we have been following since 2012. Her weight atthat time was 276 pounds. Wt Readings from Last 6 Encounters: 07/23/20 119.7 kg (264 lb) 07/21/20 121.1 kg (267 lb) 07/16/20 122.6 kg (270 lb 4.5 oz) 07/13/20 121.5 kg (267 lb 14.4 oz) 07/07/20 121.4 kg (267 lb 9.6 oz) 06/09/20 113.4 kg (250 lb) Patient is receiving ongoing education regarding dietary and physical modifications for weight loss. Patient is interested in the following treatment options for obesity: medical management. The patient was last seen in this clinic 04/2020. Since that time the patient's weight has increased 11 pounds. The patient's total weight change is -23 pounds. Today's visit: -states she is "trying to stay out of the hospital" - states they thought she had an infection in her blood, but it ended up being contamination - blood sugars controlled Review of Systems: The patient denies any chest pain, palpitations. Since her last visit there have been no problems with Anxiety / nervousness, Binge Eating, Depression, Diarrhea and Hair loss. DM: Blood sugar is running under 200 on average. HEMOGLOBIN, MEASURED(g/dL) Lucio Dt/Tm Resulted Value Status 07/21/20 3:52P 07/21/20 8.4* FINAL Depression/Anxiety: Well controlled on current medications. Dyslipidemia: Stable on current medication. Hypothyroidism: She is working with her PCP to adjust thyroid medications. Edema: Stable per patient. GERD: Stable with prilosec daily. NG: Following with GI. Current Medications: Current Outpatient Medications Medication Sig Dispense Refill Ipratropium-Albuterol 0.5-2.5 (3) MG/3ML Inhalation Solution (DUONEB) [...] bedtime. 34 Tab 0 Continuous Blood Gluc Cloth Laminating Supervisor (FREESTYLE XOCHITL 2 READER SYSTM) KORTNEY Freestyle Xochitl 2 14-day Cloth Laminating Supervisor ([id number]) 1 Package 0 Continuous Blood Gluc Sensor (FREESTYLE XOCHITL 2 SENSOR SYSTM) MIS Freestyle Xochitl 2 14-day Sensor (481087) (2 sensors=28 day/1-month supply) 2 Each 1 [...] With spacer 16 g 1 nystatin (NYSTOP) 342576 UNIT/GM powder Apply topically to affected area [...] Tab by mouth daily. 1 Tab 0 Fluticasone-Salmeterol 250-50 MCG/DOSE Inhalation Aerosol Powder Breath Activated (Advair Diskus) Inhale 1 Puff by mouth 2 times a day. 60 Each 3 Water intake: 1-2 bottles per day, Prescribed diet: 1338-3496 Low Fat CHO Modified Diet Current diet: --> Breakfast--oatmeal; eggs; cereal --> Snack--pretzels nuggets --> Lunch-- sandwich lunch meat --> Snack--none --> Dinner--stew; chicken mashed potatoes --> Snack-- popcorn; SF cookies --> Drinks-- water, milk, juice, soda diet Food logs: no Type of exercise: limited due to immobility from CP Exercise: Times per week: -- Minutes per day: -- Weight loss Pharmacotherapy: no BP 133/68 | Pulse 66 | Temp 36 C (96.8 F) Per nursing patient was unable to stand on scale today, but last time she weighed herself it was 264 pounds. - in the past couple weeks PHYSICAL EXAMINATION: General: Patient is in no acute distress, well groomed, well developed, well nourished. HEENT is unremarkable. NC/AT, sclera nonicteric Heart has normal S-1 and S-2. There is no murmurs or ectopy. RRR. Lungs Normal wob Abdomen is soft, obese, non-distended, and non tender with normoactive bowel sounds. No rebound or guarding. Extremities with boots on Skin is without obvious rash. Psych is normal mood and affect Neuro Wheelchair bound Assessment: Morbid Obesity: The above meal plan was reviewed again in detail with Shaina Bustos. She will continue to increase her physical activity as prescribed. Continue to avoid all fruit juices and regular sodas. Increase water consumption to 64 ounces per day. Encourage to keep food logs and get weighed on a weekly basis. Goals for next month: 1. Minimize/Avoid simple sugar foods - I.e. White breads, pasta, bagels, crackers, etc. 2. Increase water intake, cut down on sugary beverages 3. increase fruit as snacks instead of processed simple carbs DIABETES: Continue current medications. Follow-up with PCP and Payal. DYSLIPIDEMIA: Stable on the above prescribed meal plan and medication. GERD: The patient believes her reflux is somewhat better or at least no worse on current medication. She was encouraged to avoid caffeine products, elevate head of bed and not eat for 1 hour before bedtime. No interval changes were made in her anti-reflux medications. NON SUICIDAL DEPRESSION: Mood stable on current medication. No changes initiated on this visit. EDEMA: Stable. NG: Continue following with GI. The patient will return to the Weight Management Clinic in 4 weeks. She was instructed to call in the meantime with any questions or concerns prior to her next clinic visit. Essence Chase PA-C documented in this encounter Nursing Notes * Sabine Valencia LPN - 07/27/2020 1:42 PM EST Patient identified by full name and date of Chief Complaint Patient presents with Weight Management 3 month follow up documented in this encounter Plan of Treatment Upcoming Encounters Date Type Specialty Care Team Description 08/03/20 20 Pandemic Screening Ancillary [place], Pre Surgical Covid Testing Chau [address] [place] [address] 08/03/20 20 Hem/Onc Treatment Hematology [facility] [place], Chair [address] [place] [address] [phone] 08/05/20 20 Hospital Encounter Surgery Janis Hatch, DO [address] [place] [address] [phone] 08/05/20 20 Surgery Surgery Janis Hatch, DO [address] [place] [address] [phone] ESOPHAGOGASTRODUODENOSCOPY (EGD), FLEXIBLE, TRANSORAL, DIAGNOSTIC 08/13/20 Pharmacy Pharmacy [facility] [address] [place] [address] [phone] 08/19/20 20 Office Visit Family Medicine Alexandra Caceres, [address] [place] [address] [phone] 08/21/20 20 Telemedicine Endocrinology Alberta Duque PA-C [address] [place] [address] 09/01/20 20 Nutrition Services Gastroenterology Melissa Omalley RDN [address] [place] [address] [phone] 09/03/20 20 Imaging Radiology 09/15/19 21 Office Visit Orthopedics Jayme Benz MD [address] [place] [address] 09/23/19 21 Office Visit Gastroenterology Lyssa Stout CRNP [address] [place] [address] [phone] Health Maintenance Due Date Last Done Comments [...] of this encounter Implants Implanted Type Area Furniture Fabricator Device Identifier Shelf Expiration Date Model / Serial / Lot Microtech Sure Clip Implanted:Qty: 2 on 06/03/2020 by Janis Hatch DO at OR [facility] Clip N/A: Colon 04/21/2022 [facility]-F-26-2 35-C-R / / [id number] documented as of this encounter Visit Diagnoses Diagnosis HTN, goal below 140/90- Primary Unspecified essential hypertension Gastroesophageal reflux disease, unspecified whether esophagitis present Esophagitis Esophagitis, unspecified THAD on CPAP Obstructive sleep apnea (adult) (pediatric) Primary osteoarthritis of right knee Primary localized osteoarthrosis, lower leg Recurrent major depressive disorder, in partial remission (HCC) Wheelchair dependent Wheelchair dependence Type 2 diabetes mellitus with hemoglobin A1c goal of less than 7.0% (HCC) Impaired mobility and ADLs Mechanical problems with limbs Intermittent asthma with reliever use up to twice per week without complication Dyslipidemia, goal LDL below 70 Other and unspecified hyperlipidemia Portal hypertension (HCC) Portal hypertension Esophageal varices (HCC) Esophageal varices without mention of bleeding documented in this encounter Advance Directives Documents on File Type Date Recorded Patient Workers' Compensation Claims Supervisor Expl anation Advanced Directive service a [...]
--- OUTSIDE RECORDS SUMMARY | 2023-05-10 22:02 | External Medical Summary | Summary of Care ---
Author Name Unknown Organization [place] [address] Care Team Providers Care Medical Receptionist Medical Assistant Name Role Phone Alexandra Caceres Primary Care Provider [phone] Reason for Visit * Reason Onset Date Comments Appointment 07/24/2020 Encounter Details Date Type Department Care Team Description 07/24/2020 Telephone Hematology/Oncology [facility] [address] [place] [address] Tono Sanchez MD [address] [place] [address] [phone] Appointment Allergies Active Allergy Reactions Severity Noted [...] 120 Vial 11 10/02/2019 Active nystatin (NYSTOP) 851902 UNIT/GM powder Apply topically to affected area [...] SYSTM) MISC Freestyle Xochitl 2 14-day Sensor (953503) (2 sensors=28 day/1-month supply) 2 Each 1 05/26/2020 Active Continuous Blood Gluc Care Analyst (FREESTYLE XOCHITL 2 READER SYSTM) KORTNEY Freestyle Xochitl 2 14-day Care Analyst (247783) 1 Package 0 05/26/2020 Active famotidine (PEPCID) [...] pain 01/24/2012 01/17/2017 Genetic Sleep Disorder Research Other*[id number] 05/13/2011 04/07/2016 Obstructive sleep apnea 01/18/2011 12/27/19 [...] or bathing? 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-content strategy lead helps 07/15/2020 Because of a physical, [...] for patient's call: patient returning call to [facility]. Caller was transferred to [facility] at the clinic. * Telephone Encounter - Cassie Barboza RN - 07/27/2020 8:44 AM EST [place]: Please contact patient to schedule 2 hour [...] Pt would like to be scheduled at [facility] for infusions. Please advise. Pt's home phone is [phone] Cell number is [phone] documented in this encounter Plan of Treatment Upcoming Encounters Date Type Specialty Care Team Description 08/03/20 20 Pandemic Screening Ancillary Fernandes, Pre Surgical Covid Testing [facility] [address] [place] [address] 08/03/20 Hem/Onc Treatment Hematology [facility] [place], Chair [address] Hem Onc [address] [place] [address] [phone] 08/05/20 Hospital Encounter Surgery Janis Hatch, DO [address] [place] [address] [phone] 08/05/20 Surgery Surgery Janis Hatch, DO [address] [place] [address] [phone] ESOPHAGOGASTRODUODENOSCOPY (EGD), FLEXIBLE, TRANSORAL, DIAGNOSTIC 08/13/20 Pharmacy Pharmacy [facility] [address] [place], [place] [id number] 08/19/20 20 Office Visit Family Medicine Alexandra Caceres, DO [address] [place] [address] [phone] 08/21/20 20 Telemedicine Endocrinology Alberta Duque PA-C [address] [facility] [place] [address] 09/01/20 20 Nutrition Services Gastroenterology Melissa Omalley, [place] [address] [place] [address] [phone] 09/03/20 20 Imaging Radiology 09/15/19 21 Office Visit Orthopedics Jayme Benz MD [address] [place] [address] 09/23/19 21 Office Visit Gastroenterology Lyssa Stout CRNP [address] [place] [address] [phone] Health Maintenance Due Date Last Done Comments [...] this encounter Implants Implanted Type Area Account Engineer Device Identifier Shelf Expiration Date Model / Serial / Lot Microtech Sure Clip Implanted:Qty: 2 on 06/03/2020 by Janis Hatch DO at OR [facility] Clip N/A: Colon 04/21/2022 [facility]-F-26-2 35-C-R / / [id number] documented as of this encounter Advance Directives Documents on File Type Date Recorded Patient Nurse Informaticist Expl anation Advanced Directive service a kerri [...] Agents on File Name Relationship Healthcare Agent [facility] p Communication Syed Bustos Spouse Emergency Contact
--- OUTSIDE RECORDS SUMMARY | 2023-05-10 22:04 | External Medical Summary | Summary of Care ---
Author Name Unknown Organization [place] [address] Care Team Providers Care Statement Distribution Clerk Name Role Phone Alexandra Caceres Primary Care Provider [phone] Reason for Visit * Reason Onset Date Comments Appointment 07/24/2020 Encounter Details Date Type Department Care Team Description 07/24/2020 Telephone Hematology/Oncology [facility] [address] [place] [address] Tono Sanchez MD [address] [place] [address] [phone] Appointment Allergies Active Allergy Reactions Severity Noted Date Comments Adhesive Tape Itching 04/29/2020 Penicillins Rash 02/12/2008 Perflutren Protein A Microsph 2019 Definity-lower back pain documented as of this encounter (statuses as of 07/25/2020) Medications Medication Sig Dispensed Refills Start Date [...] 120 Vial 11 10/02/2019 Active nystatin (NYSTOP) 009190 UNIT/GM powder Apply topically to affected area [...] SYSTM) MISC Freestyle Xochitl 2 14-day Sensor (200979) (2 sensors=28 day/1-month supply) 2 Each 1 05/26/2020 Active Continuous Blood Gluc Manufacturing Mechanic (FREESTYLE XOCHITL 2 READER SYSTM) KORTNEY Freestyle Xochitl 2 14-day Manufacturing Mechanic (312736) 1 Package 0 05/26/2020 Active famotidine (PEPCID) [...] as of this encounter (statuses as of 07/25/2020) Active Problems Problem Noted Date Uncontrolled type [...] as of this encounter (statuses as of 07/25/2020) Resolved Problems Problem Noted Date Resolved Date [...] pain 01/24/2012 01/17/2017 Genetic Sleep Disorder Research Other*[id number] 05/13/2011 04/07/2016 Obstructive sleep apnea 01/18/2011 12/27/19 [...] as of this encounter (statuses as of 07/25/2020) Immunizations Name Administration Dates Next Due HEP [...] bathing? 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-child caregiver helps 07/15/2020 Because of a physical, [...] encounter Miscellaneous Notes * Telephone Encounter - Andree Carranza OSA [...] Pt would like to be scheduled at [facility] for infusions. Please advise. Pt's home phone is [phone] Cell number is [phone] documented in this encounter Plan of Treatment Upcoming Encounters Date Type Specialty Care Team Description 07/27/20 Office Visit Family Medicine Alexandra Caceres, [address] [facility] [place] [address] [phone] 07/27/20 Office Visit Gastroenterology Essence Chase PA-C [address] [place] [address] [phone] 08/03/20 Hem/Onc Treatment Hematology [facility] [place], [address] [facility] [address] [phone] 08/05/20 Hospital Encounter Surgery Janis Hatch DO [address] [place] [address] [phone] 08/05/20 20 Surgery Surgery Janis Hatch, DO [address] [facility] [place] [address] [phone] ESOPHAGOGASTRODUODENOSCOPY (EGD), FLEXIBLE, TRANSORAL, DIAGNOSTIC 08/13/20 Pharmacy Pharmacy [facility] [address] [facility], [place] [id number] 08/19/20 20 Office Visit Family Medicine Alexandra Caceres, DO [address] [facility] [address] [phone] 08/21/20 20 Telemedicine Endocrinology Alberta Duque PA-C [address] [place], [place] [id number] 09/03/20 20 Imaging Radiology 09/15/19 21 Office Visit Orthopedics Jayme Benz MD [address] [place], [place] [address] 09/23/19 21 Office Visit [facility]astroenterology [facility]out CR[facility] [address] [facility] [place] [address] [phone] Health Maintenance Due Date Last Done Comments [...] of this encounter Implants Implanted Type Area Leadership Development Instructor Device Identifier Shelf Expiration Date Model / Serial / Lot Microtech Sure Clip Implanted:Qty: 2 on 06/03/2020 by Janis Hatch DO at OR [facility] Clip N/A: Colon 04/21/2022 [facility]-F-26-2 35-C-R / / [id number] documented as of this encounter Advance Directives Documents on File Type Date Recorded Patient Certified Rehabilitation Counselor Expl anation Advanced Directive service a [...]
--- OUTSIDE RECORDS SUMMARY | 2023-05-10 22:04 | External Medical Summary | Summary of Care ---
Author Name Unknown Organization [place] [address] Care Team Providers Care Senior Wind Energy Consultant Name Role Phone Alexandra Caceres Primary Care Provider [phone] Reason for Visit * Reason Onset Date Comments Appointment 07/24/2020 Encounter Details Date Type Department Care Team Description 07/24/2020 Telephone Hematology/Oncology [facility] [address] [place] [address] Tono Sanchez MD [address] [place] [address] [phone] Appointment Allergies Active Allergy Reactions Severity Noted [...] 120 Vial 11 10/02/2019 Active nystatin (NYSTOP) 226653 UNIT/GM powder Apply topically to affected area [...] SYSTM) MISC Freestyle Xochitl 2 14-day Sensor (348687) (2 sensors=28 day/1-month supply) 2 Each 1 05/26/2020 Active Continuous Blood Gluc Electronic Installer (FREESTYLE XOCHITL 2 READER SYSTM) KORTNEY Freestyle Xochitl 2 14-day Electronic Installer (440807) 1 Package 0 05/26/2020 Active famotidine (PEPCID) [...] pain 01/24/2012 01/17/2017 Genetic Sleep Disorder Research Other*[id number] 05/13/2011 04/07/2016 Obstructive sleep apnea 01/18/2011 12/27/19 [...] or bathing? 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-converter operator helps 07/15/2020 Because of a physical, [...] Barboza RN - 07/27/2020 8:44 AM EST [place]: Please contact patient to schedule 2 hour [...] Pt would like to be scheduled at [facility] for infusions. Please advise. Pt's home phone is [phone] Cell number is [phone] documented in this encounter Plan of Treatment Upcoming Encounters Date Type Specialty Care Team Description 07/27/20 Office Visit Family Medicine Alexandra Caceres DO [address] [facility] [place] [address] 07/27/20 Office Visit Gastroenterology Essence Chase PA-C [address] [place] [address] [phone] 08/03/20 20 Hem/Onc Treatment Hematology [facility] [place], [address] [facility] [address] [phone] 08/05/20 20 Hospital Encounter Surgery Janis Hatch, DO [address] [place] [address] [phone] 08/05/20 20 Surgery Surgery Janis Hatch, DO [address] [place] [address] [phone] ESOPHAGOGASTRODUODENOSCOPY (EGD), FLEXIBLE, TRANSORAL, DIAGNOSTIC 08/13/20 Pharmacy Pharmacy [facility] [address], [place] [id number] 08/19/20 20 Office Visit Family Medicine Alexandra Caceres, DO [address] [place] [address] [phone] 08/21/20 20 Telemedicine Endocrinology Alberta Duque PA-C [address] [place] [address] 09/03/20 20 Imaging Radiology 09/15/19 21 Office Visit Orthopedics Jayme Benz MD [address] [place] [address] 09/23/19 21 Office Visit Gastroenterology Lyssa Stout CRNP [address] [place] [address] [phone] Health Maintenance Due Date Last Done Comments [...] of this encounter Implants Implanted Type Area Swimming Coach Device Identifier Shelf Expiration Date Model / Serial / Lot Microtech Sure Clip Implanted:Qty: 2 on 06/03/2020 by Janis Hatch DO at OR [facility] Clip N/A: Colon 04/21/2022 [facility]-F-26-2 35-C-R / / [id number] documented as of this encounter Advance Directives Documents on File Type Date Recorded Patient Vegetable Preparer Expl anation Advanced Directive service a kerri [...]
--- OUTSIDE RECORDS SUMMARY | 2023-05-10 22:04 | External Medical Summary | Summary of Care ---
Author Name Unknown Organization [place] [address] Care Team Providers Care Manager Marketing Sales Name Role Phone Alexandra Caceres Primary Care Provider [phone] Reason for Visit * Reason Onset Date Comments Appointment 07/24/2020 Encounter Details Date Type Department Care Team Description 07/24/2020 Telephone Hematology/Oncology [facility] [address] [place] [address] Tono Sanchez MD [address] [place] [address] [phone] Appointment Allergies Active Allergy Reactions Severity Noted Date Comments Adhesive Tape Itching 04/29/2020 Penicillins Rash 02/12/2008 Perflutren Protein A Microsph 2019 Definity-lower back pain documented as of this encounter (statuses as of 07/24/2020) Medications Medication Sig Dispensed Refills Start Date [...] 120 Vial 11 10/02/2019 Active nystatin (NYSTOP) 681926 UNIT/GM powder Apply topically to affected area [...] SYSTM) MISC Freestyle Xochitl 2 14-day Sensor (506574) (2 sensors=28 day/1-month supply) 2 Each 1 05/26/2020 Active Continuous Blood Gluc Developer Support Engineer (FREESTYLE XOCHITL 2 READER SYSTM) KORTNEY Freestyle Xochitl 2 14-day Developer Support Engineer (245983) 1 Package 0 05/26/2020 Active famotidine (PEPCID) [...] as of this encounter (statuses as of 07/24/2020) Active Problems Problem Noted Date Uncontrolled type [...] as of this encounter (statuses as of 07/24/2020) Resolved Problems Problem Noted Date Resolved Date [...] pain 01/24/2012 01/17/2017 Genetic Sleep Disorder Research Other*[id number] 05/13/2011 04/07/2016 Obstructive sleep apnea 01/18/2011 12/27/19 [...] as of this encounter (statuses as of 07/24/2020) Immunizations Name Administration Dates Next Due HEP [...] or bathing? 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-contact lens lathe operator helps 07/15/2020 Because of a [...] Pt would like to be scheduled at [facility] for infusions. Please advise. Pt's home phone is [phone] Cell number is [phone] documented in this encounter Plan of Treatment Upcoming Encounters Date Type Specialty Care Team Description 07/27/20 Office Visit Family Medicine Alexandra Caceres, DO [address] [facility] [place] [address] [phone] 07/27/20 Office Visit Gastroenterology Essence Chase PA-C [address] [place] [address] [phone] 08/03/20 20 Hem/Onc Treatment Hematology [place], Chair [address] Hem On[address] [facility] [address] [phone] 08/05/20 20 Hospital Encounter Surgery Janis Hatch, DO [address] [place] [address] [phone] 08/05/20 20 Surgery Surgery Janis Hatch, DO [address] [place] [address] ESOPHAGOGASTRODUODENOSCOPY (EGD), FLEXIBLE, TRANSORAL, DIAGNOSTIC 08/13/20 Pharmacy Pharmacy [facility] [address], [place] [address] 08/19/20 20 Office Visit Family Medicine Alexandra Caceres DO [address] [place] [address] [phone] 08/21/20 20 Telemedicine Endocrinology Alberta Duque PA-C [address] [place] [address] 09/03/20 20 Imaging Radiology 09/15/19 21 Office Visit Orthopedics Jayme Benz MD [address] [place] [address] 09/23/19 21 Office Visit Gastroenterology Lyssa Stout CRNP [address] [place] [address] [phone] Health Maintenance Due Date Last Done Comments [...] of this encounter Implants Implanted Type Area Continuous Mining Operator Device Identifier Shelf Expiration Date Model / Serial / Lot Microtech Sure Clip Implanted:Qty: 2 on 06/03/2020 by Janis Hatch DO at OR [facility] Clip N/A: Colon 04/21/2022 [facility]-F-26-2 35-C-R / / [id number] documented as of this encounter Advance Directives Documents on File Type Date Recorded Patient Porcelain Waxer Expl anation Advanced Directive service a kerri [...]
--- OUTSIDE RECORDS SUMMARY | 2023-05-10 22:05 | External Medical Summary | Summary of Care ---
Author Name Unknown Organization [place] [address] Care Team Providers Care Multifold Operator Name Role Phone NickiTkjennie Ashton DO Primary Care Provider Reason for Visit * Reason Comments IV Therapy venofer Encounter Details Date Type Department Care Team Description 07/24/2020 Hem/Onc Treatment Hematology/Oncology Treatment, [place] [address] [place] [address] Mary[place], Chair [address] Hem Onc Sc[address]ery [address] [place], [place] [id number] Anemia* Allergies Active Allergy Reactions Severity Noted Date [...] 120 Vial 11 10/02/2019 Active nystatin (NYSTOP) 018691 UNIT/GM powder Apply topically to affected area [...] SYSTM) MISC Freestyle Xochitl 2 14-day Sensor (177527) (2 sensors=28 day/1-month supply) 2 Each 1 05/26/2020 Active Continuous Blood Gluc Quartz Miner (FREESTYLE XOCHITL 2 READER SYSTM) KORTNEY Freestyle Xochitl 2 14-day Quartz Miner (293349) 1 Package 0 05/26/2020 Active famotidine (PEPCID) [...] pain 01/24/2012 01/17/2017 Genetic Sleep Disorder Research Other*[id number] 05/13/2011 04/07/2016 Obstructive sleep apnea 01/18/2011 12/27/19 [...] Sign Reading Time Taken Comments Blood Pressure 130/78 07/24/2020 9:19 AM EST Pulse - - Temperature 36.4 C (97.5 F) 07/24/2020 9:19 AM ES T Respiratory Rate - - Oxygen [...] or bathing? 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-member of congress helps 07/15/2020 Because of a physical, menta [...] Nursing Notes * Bella Ramires LPN - 07/24/2020 10:55 AM EST Unable to obtain IV access, 2 tries by myself and 2 by Dulce Montes De Oca RN. Pt declines further tries and would prefer going to [facility]. Message sent. Room 224 documented in this encounter Plan of Treatment Upcoming Encounters Date Type Specialty Care Team Description 07/27/20 Office Visit Family Medicine Alexandra Caceres, DO [address] [facility] [place] [address] [phone] 07/27/20 Office Visit Gastroenterology Essence Chase PA-C [address] [facility] [place] [address] [phone] 08/03/20 Hem/Onc Treatment Hematology [place], Chair [address] Hem On[address] [facility] [address] [phone] 08/05/20 Hospital Encounter Surgery Janis Hatch, DO [address] [place] [address] [phone] 08/05/20 20 Surgery Surgery Janis Hatch, DO [address] [place] [address] [phone] ESOPHAGOGASTRODUODENOSCOPY (EGD), FLEXIBLE, TRANSORAL, DIAGNOSTIC 08/13/20 Pharmacy Pharmacy [facility] [address] [place] [address] [phone] 08/19/20 20 Office Visit Family Medicine Alexandra Caceres DO [address] [place] [facility] [place] [address] [phone] 08/21/20 20 Telemedicine Endocrinology Alberta Duque PA-C [address] [place] [address] 09/03/20 20 Imaging Radiology 09/15/19 21 Office Visit Orthopedics Jayme Benz MD [address] [place] [address] 09/23/19 21 Office Visit Gastroenterology Lyssa Stout CRNP [address] [place] [address] [phone] Health Maintenance Due Date Last Done Comments [...] this encounter Implants Implanted Type Area Service Officer Device Identifier Shelf Expiration Date Model / Serial / Lot Microtech Sure Clip Implanted:Qty: 2 on 06/03/2020 by Janis Hatch DO at OR [facility] Clip N/A: Colon 04/21/2022 [facility]-F-26-2 35-C-R / / [id number] documented as of this encounter Visit Diagnoses Diagnosis Anemia- Primary Anemia, unspecified Portal hypertension (HCC) Portal hypertension Esophageal varices (HCC) Esophageal varices without mention of bleeding documented in this encounter Advance Directives Documents on File Type Date Recorded Patient Director Of Casework Expl anation Advanced Directive service a kerri [...] Agents on File Name Relationship Healthcare Agent [facility] p Communication Syed Bustos Spouse Emergency Contact
--- OUTSIDE RECORDS SUMMARY | 2023-05-10 22:05 | External Medical Summary | Summary of Care ---
Author Name Unknown Organization [place] [address] Care Team Providers Care Staking Engineer Name Role Phone lAexandra Caceres Primary Care Provider [phone] Reason for Visit * Reason Onset Date Comments Pre Cert/Prior Auth 07/22/2020 Encounter Details Date Type Department Care Team Description 07/22/2020 Telephone Hematology/Oncology [facility] [address] [place] [address] Tono Sanchez MD [address] [place] [address] [phone] Pre Cert/Prior Auth Allergies Active Allergy Reactions Severity Noted Date Comments Adhesive Tape Itching 04/29/2020 Penicillins Rash 02/12/2008 Perflutren Protein A Microsph 2019 Definity-lower back pain documented as of this encounter (statuses as of 07/22/2020) Medications Medication Sig Dispensed Refills Start Date [...] 120 Vial 11 10/02/2019 Active nystatin (NYSTOP) 408731 UNIT/GM powder Apply topically to affected area [...] SYSTM) MISC Freestyle Xochitl 2 14-day Sensor (655547) (2 sensors=28 day/1-month supply) 2 Each 1 05/26/2020 Active Continuous Blood Gluc Manager Track (FREESTYLE XOCHITL 2 READER SYSTM) KORTNEY Freestyle Xochitl 2 14-day Manager Track (669372) 1 Package 0 05/26/2020 Active famotidine (PEPCID) [...] as of this encounter (statuses as of 07/22/2020) Active Problems Problem Noted Date Uncontrolled type [...] as of this encounter (statuses as of 07/22/2020) Resolved Problems Problem Noted Date Resolved Date [...] pain 01/24/2012 01/17/2017 Genetic Sleep Disorder Research Other*[id number] 05/13/2011 04/07/2016 Obstructive sleep apnea 01/18/2011 12/27/19 [...] as of this encounter (statuses as of 07/22/2020) Immunizations Name Administration Dates Next Due HEP [...] or bathing? 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-edging supervisor helps 07/15/2020 Because of a physical, [...] encounter Miscellaneous Notes * Telephone Encounter - Bella Ramires LPN - 07/22/2020 10:39 AM EST Yes, see that. Sorry everyone! * Telephone Encounter - Cassie Barboza RN - 07/22/2020 10:24 AM EST Bella: please review referrals- there is an active referral from 12/04/19 for venofer, last updated by Connie 07/16/20. * Telephone Encounter - Bella Ramires LPN - 07/22/2020 10:18 AM EST Pt on schedule for 07/24 for venofer. I don't see prior auth in chart. Please advise. documented in this encounter Plan of Treatment Upcoming Encounters Date Type Specialty Care Team Description 0 Office Visit Endocrinology Alberta Duque PA-C [address] [facility] [place] [address] [phone] Office Visit Family Medicine Alexandra Caceres DO [address] [place] [address] [phone] Hem/Onc Treatment Hematology [place], Chair [address] Hem Onc Scenery [address] [place] [facility] [address] [phone] Office Visit Gastroenterology Essence Chase PA-C [address] [place] [address] [phone] Office Visit Pharmacy [facility] [address] [place] [facility] [place] [address] [phone] Hem/Onc Treatment Hematology [place], Chair [address] Hem Onc [address] [facility] [address] [phone] Hospital Encounter Surgery Janis Hatch, DO [address] [place] [address] [phone] Surgery Surgery Janis Hatch, DO [address] [place] [address] [phone] ESOPHAGOGASTRODUODENOSCOPY (EGD), FLEXIBLE, TRANSORAL, DIAGNOSTIC 0 Office Visit Family Medicine Alexandra Caceres, DO [address] [facility] [address] [phone] Imaging Radiology 1 Office Visit Orthopedics Jayme Benz MD [address] [facility] [place] [address] 1 Office Visit Gastroenterology Lyssa Stout CRNP [address] [facility] [place] [address] [phone] Health Maintenance Due Date Last Done Comments [...] of this encounter Implants Implanted Type Area Printing And Stamping Supervisor Device Identifier Shelf Expiration Date Model / Serial / Lot Microtech Sure Clip Implanted:Qty: 2 on 06/03/2020 by Janis Hatch DO at OR [facility] Clip N/A: Colon 04/21/2022 [facility]-F-26-2 35-C-R / / [id number] documented as of this encounter Advance Directives Documents on File Type Date Recorded Patient Deaf/Hard Of Hearing Specialist Expl anation Advanced Directive service a [...]
--- OUTSIDE RECORDS SUMMARY | 2023-05-10 22:05 | External Medical Summary ---
Author Name Unknown Address [facility] [place] [place] [address] Phone Organization K01:[place] [address] Laboratory Report Ordering Provider Test Date Status ALBERTO BARROW 07/21/2020 17:28:00 Final Observation Date Value Abnormality Reference (Units ) Status D-dimer, Quant. 07/21/2020 18:06 0.43 <0.50 ( ug/ml FEU) Final Performing Location [place] [id number]
--- OUTSIDE RECORDS SUMMARY | 2023-05-10 22:05 | External Medical Summary | Summary of Care ---
Author Name Unknown Organization [place] [address] Care Team Providers Care Batchmaker Name Role Phone NikAlexandra fernandez Primary Care Provider [phone] Reason for Visit * Reason Comments Diabetes Follow-Up Encounter Details Date Type Department Care Team Description 07/23/2020 Office Visit Endocrinology, [place] [address] [place] [address] Alberta Duque PA-C [address] [place] [address] Type 2 diabetes mellitus with hemoglobin A1c goal of less than 8.0% ([facility]ER[facility])* Allergies Active Allergy Reactions Severity Noted Date Comments Adhesive Tape Itching 04/29/2020 Penicillins Rash 02/12/2008 Perflutren Protein A Microsph 2019 Definity-lower back pain documented as of this encounter (statuses as of 07/23/2020) Medications Medication Sig Dispensed Refills Start Date [...] 120 Vial 11 10/02/2019 Active nystatin (NYSTOP) 451337 UNIT/GM powder Apply topically to affected area [...] SYSTM) MISC Freestyle Xochitl 2 14-day Sensor (348864) (2 sensors=28 day/1-month supply) 2 Each 1 05/26/2020 Active Continuous Blood Gluc Doctor Of Radiology (FREESTYLE XOCHITL 2 READER SYSTM) KORTNEY Freestyle Xochitl 2 14-day Doctor Of Radiology (093825) 1 Package 0 05/26/2020 Active famotidine (PEPCID) [...] as of this encounter (statuses as of 07/23/2020) Active Problems Problem Noted Date Uncontrolled type [...] as of this encounter (statuses as of 07/23/2020) Resolved Problems Problem Noted Date Resolved Date [...] pain 01/24/2012 01/17/2017 Genetic Sleep Disorder Research Other*[id number] 05/13/2011 04/07/2016 Obstructive sleep apnea 01/18/2011 12/27/19 [...] as of this encounter (statuses as of 07/23/2020) Immunizations Name Administration Dates Next Due HEP [...] Sign Reading Time Taken Comments Blood Pressure 127/60 07/23/2020 2:16 PM EST Pulse 65 07/23/2020 2:16 PM EST Temperature 36.3 C (97.3 F) 07/23/2020 2:16 PM ES T Respiratory Rate - - Oxygen Saturation - - Inhaled Oxygen Concentration - - Weight 119.7 kg (264 lb) 07/23/2020 2:16 PM EST Height 149.9 cm (4' 11") 07/23/2020 2:16 PM EST Body Mass Index 53.32 07/23/2020 2:16 PM EST documented in this encounter Functional [...] or bathing? 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-chimney repairer helps 07/15/2020 Because of a physical, [...] * Patient Instructions* Alberta Duque PA-C - 07/23/2020 3:10 PM EST - increase dose to 35 units of Lantus - continue dose of 26 units of Novolog - continue Metformin 1,000 mg twice a day - Trulicity documented in this encounter Progress Notes * Alberta Duque PA-C - 07/23/2020 2:00 PM EST CC Diabetes mellitus type 2 Follow up HPI Shaina Bustos is a 65 year old female who was diagnosed with diabetes about 2 years ago. Family history of diabetes includes father T2DM, sister T2DM . Diabetes historically has been uncontrolled. Current issues include - Xochitl was placed today by Stephanie Tran , - headaches and dizziness Monday Blood sugar monitoring - testing about 3 times a day - 200-300 - did not bring meter or book today for review Current DM Rx: Lantus : 30 units Novolog : 26 units before meals Trulicity 1.5 mg / weekly Metformin 1000 BID Exercise: - limited/ none Weight: Wt Readings from Last 4 Encounters: 07/23/20 119.7 kg (264 lb) 07/21/20 121.1 kg (267 lb) 07/16/20 122.6 kg (270 lb 4.5 oz) 07/13/20 121.5 kg (267 lb 14.4 oz) Hypoglycemia - denies Microvascular complications: Neuropathy: : YES. Followed by podiatry : YES. Current issues with feet: : YES, healing diabetic ulcer Nephropathy: : NO. Last urine mc below. ACEi/ARB: Denies Retinopathy: : NO. Last eye exam > 1 year . Macrovascular complications: Stroke : NO Heart attack : NO Peripheral arterial disease : YES Risk factors: Hypertension: : NO Hyperlipidemia: [...] [place]) 09/26/2013 ICD-10 update of inactive term PSH Past Surgical History: Procedure Laterality Date BONE DEBRIDEMENT, FIRST 20 CM2 Right 04/16/2020 DEBRIDEMENT SKIN SUBCUTANEOUS TISSUE MUSCLE AND BONE performed by Josh Vazquez MD at OR [facility] DELIVERY 04/20/1982 COLONOSCOPY 04/21/2009 repeat in 10 years COLONOSCOPY, DIAGNOSTIC (RECTUM) 10/04/2016 normal bx, repeat 10 yrs/[facility] COLONOSCOPY, DIAGNOSTIC (RECTUM) N/A 06/03/2020 internal hemorrhoids/biopsies show adenomatous polyps/recall 5 years/COLONOSCOPY FLEXIBLE PROXIMAL DIAGNOSTIC performed by Janis Hatch DO at [facility] DENTAL SURGERY PROCEDURE NEC wisdom teeth x 4 DILATION AND CURETTAGE (D&C) EGD, FLEXIBLE, DIAGNOSTIC 10/04/2016 gastritis/[facility] EGD, FLEXIBLE, DIAGNOSTIC 01/11/2018 eso varices, retained food, repeat 1 yr/[facility] EGD, FLEXIBLE, DIAGNOSTIC N/A 06/03/2020 severe erosive esophagitis/non-bleeding grade II esophageal varices/gastritis/biopsies show inflammatory changes/repeat 3-4 months/ESOPHAGOGASTRODUODENOSCOPY (EGD), FLEXIBLE, TRANSORAL, DIAGNOSTIC per formed by Janis Hatch DO at OR [facility] EGD, FLEXIBLE, DIAGNOSTIC 11/27/2019 eso varices, portal hypertensive gastropathy, gastritis / [facility] PELVIS/HIP JOINT SURGERY NEC teenager aid in walking REPAIR/GRAFT ACHILLES TENDON age 40 aid in walking MEDS No outpatient medications have been marked as taking for the 07/23/20 encounter (Office Visit) Mahogany Duque PA-C. ALL Reviewed and updated in the appropriate section of the electronic health record SH Social History Tobacco Use Smoking status: Never Smoker Smokeless tobacco: Never Used Substance Use Topics Alcohol use: No Drug use: No Comment: too much soda FH Family History Problem Relation Age of Onset Heart Disorder Father of AL at age 61 Diabetes Father Heart Disorder Mother of AL age 72 Cancer None Arthritis None Stroke None Heart Disorder Sister Mi at age 46 Hypertension Sister Mental Disorder None ROS 10 systems reviewed , as per HPI All other were negative. PE Filed Vitals: 07/23/20 1416 BP: 127/60 Pulse: 65 Temp: 36.3 C (97.3 F) Weight: 119.7 kg (264 lb) Height: (!) 1.499 m (4' 11") Body mass index is 53.32 kg/m. GEN: pleasant, ill-appearing, obese EYES- PERRL. Normal lids and sclerae. ENT- O/P clear moist MM. CV- regula rrate, regular rhythm, no murmurs. no peripheral edema. DP intact b/l. PULM- CTAB with normal expansion. ABD- +BS, soft, nt/nd. SKIN- normal temperature and texture. Feet in okay condition. Injection sites on abdomen or back ofthe arm hypertrophy. PSYCH- A&Ox3. Normal mood and affect. MSK- Normal bulk/tone. no foot deformity. RECORDS I reviewed the available medical records [...] Lucio Dt/Tm Resulted Value Status BUN (mg/dL) 07/21/20 3:52P 07/21/20 11 F CREATININE (mg/dL) 07/21/20 3:52P 07/21/20 0.7 F E GLOM FILT RATE ( ) 07/21/20 3:52P 07/21/20 >60.0 F SODIUM (mmol/L) 07/21/20 3:52P 07/21/20 140 F POTASSIUM (mmol/L) 07/21/20 3:52P 07/21/20 4.4 F CHLORIDE (mmol/L) 07/21/20 3:52P 07/21/20 106 F CO2 (mmol/L) 07/21/20 3:52P 07/21/20 25 F ANION GAP (mmol/L) 07/21/20 3:52P 07/21/20 9 F GLUCOSE (mg/dL) 07/21/20 3:52P 07/21/20 286* F CALCIUM (mg/dL) 07/21/20 3:52P 07/21/20 9.0 F IMP Shaina Bustos is a 65 year old female here for follow up for T2DM. Most recent A1C was 9.9% , decrease from 11%. Since last visit, has not been able to start Xochitl. Brought here today to have put on .Stephanie TRACY, RN, was able to assist and start the xochitl for them. and caretakers at home are the ones in control of the medications. Discussed to increase the Lantus to 35 units and continue the Novolog, next visit they hopefully will have more data or results to review to make additional adjustments. Discussed to watch the amount carbs eaten at meals. Patient and her confirmed understanding. PLAN Type 2 diabetes mellitus with hemoglobin A1c goal of less than 8.0% ([facility]) (Primary) - increase Lantus 35 units daily - Novolog 26 units with meals - start monitoring blood sugars with freestyle. Follow Up: Return in about 4 weeks (around 08/20/2020) for Diabetes Return. | For: Diabetes Return | Check-out note: Phone call. Alberta Duque PA-C [facility] End[facility]ology [address] [facility] [address] Phone: [phone] Fax: [phone] documented in this encounter Nursing Notes * Kenya Gonzalez LPN - 07/23/2020 2:18 PM EST Patient denies any signs/symptoms of COVID-19 when asked this day. Kenya Gonzalez LPN documented in this encounter Plan of Treatment Upcoming Encounters Date Type Specialty Care Team Description 07/24/20 20 Hem/Onc Treatment H[facility]ology [place], Chair [address] On[address] [place], [place] [address] [phone] 07/27/20 20 Office Visit Family [facility] Alexandra Caceres, DO [address], [place] [address] 07/27/20 20 Office Visit [facility]ology Essence Chase [facility]C [address] [facility] [place] [address] [phone] 08/03/20 20 Hem/Onc Treatment Hematology [place], Chair 11 Hem Onc Scenery [address] [place] [facility] [place] [address] [phone] 08/05/20 20 Hospital Encounter Surgery Janis Hatch, DO [address] [facility] [place] [address] [phone] 08/05/20 20 Surgery Surgery Janis Hatch, DO [address] [facility] [place] [address] [phone] ESOPHAGOGASTRODUODENOSCOPY (EGD), FLEXIBLE, TRANSORAL, DIAGNOSTIC 08/13/20 Pharmacy Pharmacy [facility] [address], [place] [address] 08/19/20 20 Office Visit [facility] Alexandra Caceres, DO [address] [place] [address] [phone] 08/21/20 20 Telemedicine Endocrinology Alberta Duque PA-C [address] [place] [address] 09/03/20 20 Imaging Radiology 09/15/19 21 Office Visit Orthopedics Jayme Benz MD [address] [place] [address] 09/23/19 21 Office Visit Gastroenterology Lyssa Stout CRNP [address] [place] [address] [phone] Health Maintenance Due Date Last Done Comments [...] of this encounter Implants Implanted Type Area Surgeon/President Device Identifier Shelf Expiration Date Model / Serial / Lot Microtech Sure Clip Implanted:Qty: 2 on 06/03/2020 by Janis Hatch DO at OR [facility] Clip N/A: Colon 04/21/2022 [facility]-F-26-2 35-C-R / / [id number] documented as of this encounter Visit Diagnoses Diagnosis Type 2 diabetes mellitus with hemoglobin A1c goal of less than 8.0% (HCC)- Primary Portal hypertension (HCC) Portal hypertension Esophageal varices (HCC) Esophageal varices without mention of bleeding documented in this encounter Advance Directives Documents on File Type Date Recorded Patient It Security Consultant Expl 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
--- OUTSIDE RECORDS SUMMARY | 2023-05-10 22:05 | External Medical Summary | Summary of Care ---
Author Name Unknown Organization [place] [address] Care Team Providers Care Log Pond Worker Name Role Phone Alexandra Caceres Primary Care Provider [phone] Reason for Visit * Reason Comments Diabetes Encounter Details Date Type Department Care Team Description 07/23/2020 Nurse Only Nutrition Services, [place] [address] [place] [address] Stephanie Cotton RN [address], [place] [id number] Diabetes Allergies Active Allergy Reactions Severity Noted Date [...] 120 Vial 11 10/02/2019 Active nystatin (NYSTOP) 870745 UNIT/GM powder Apply topically to affected area [...] SYSTM) MISC Freestyle Xochitl 2 14-day Sensor (634360) (2 sensors=28 day/1-month supply) 2 Each 1 05/26/2020 Active Continuous Blood Gluc Air Conditioning Installer (FREESTYLE XOCHITL 2 READER SYSTM) KORTNEY Freestyle Xochitl 2 14-day Air Conditioning Installer (736711) 1 Package 0 05/26/2020 Active famotidine (PEPCID) [...] pain 01/24/2012 01/17/2017 Genetic Sleep Disorder Research Other*[id number] 05/13/2011 04/07/2016 Obstructive sleep apnea 01/18/2011 12/27/19 [...] this encounter Patient Instructions * Patient Instructions* Stephanie Cotton RN - 07/23/2020 3:21 PM EST Diabetes: Medication Change current regimen, to upgrade to pumping system Per Alberta Do PA-C OTHER: Wear Xochitl 2 sensor as directed and change every 14 days Plan for return: Next Office Visit: prn Scheduled Provider(s): Stephanie Cotton RN documented in this encounter Progress Notes * Stephanie Cotton RN - 07/23/2020 3:14 PM EST Insulin Pump/Sensor Training Name: Shaina Bustos Date: 07/23/2020 Shaina Bustos, identified by name and date of , is a 65 year old year old female being seen fordiabetes education/pump and sensor training. DSMT/MNT assessment: Participant's diabetes concerns and/or barriers to care they would like to address at today's visit: Here today to learn/place Xochitl 2 sensor Seeing Alberta Duque PA-C also this day Accompanied by spouse / med care manager Diabetes medication: Not reviewed as Alberta Duque PA-C seeing also this day Meter: Not addressed Hypoglycemia: None DSMT/ Diabetes MNT intervention: Monitoring: Assisted set up and placement for Xochitl 2 monitoring system. Discussed Xochitl monitoring system. Change sensor every 14 days - wearing to back of arms as recommended. Assisted to set up the reader data - BS ranges for download use and alerts/alarms set. . Discussed 1 hour for warm up of sensor where she would not see any data during this time period. Tracking patterns discussed not individual BS levels - use log book - if in doubt on BS control assess BS levels with blood glucose meter. If BS lower, test BS with finger stick until resolved due tolag time between sensor and Blood glucoses. Sites and rotations discussed and changing sensor after every 14 days of wear discussed/stressed. Recommendations: Therapy Management Plan: 1.)Diabetes: Medication Change current regimen, to upgrade to pumping system Per Alberta Do PA-C OTHER: Wear Xochitl 2 sensor as directed and change every 14 days Plan for return: Next Office Visit: prn Scheduled Provider(s): Stephanie Cotton RN Time in: 300pm Time out: 330pm Stephanie Cotton RN,BSN,CDE, CPT NUTRITION SERVICES 7 [employer] Market Reporter documented in this encounter Plan of Treatment Upcoming Encounters Date Type Specialty Care Team Description 07/24/20 Hem/Onc Treatment Hematology Oncology Mobile, Chair [address] [facility] [place] [address] [phone] 07/27/20 Office Visit Family Medicine Alexandra Caceres, [address] [facility] [address] [phone] 07/27/20 Office Visit Gastroenterology Essence Chase PA-C [address] [facility] [place] [address] [phone] 08/03/20 Hem/Onc Treatment Hematology Oncology Maryellen, Chair [address] [place] [address] [phone] 08/05/20 20 Hospital Encounter Surgery Janis Hatch, DO [address] [place] [address] [phone] 08/05/20 20 Surgery Surgery Janis Hatch, DO [address] [place] [address] [phone] ESOPHAGOGASTRODUODENOSCOPY (EGD), FLEXIBLE, TRANSORAL, DIAGNOSTIC 08/13/20 [facility] [address] [facility] [address] [phone] 08/19/20 20 Office Visit Family Medicine Alexandra Caceres DO [address] [place] [address] [phone] 08/21/20 20 Telemedicine Endocrinology Alberta Duque PA-C [address] [place] [address] 09/03/20 20 Imaging Radiology 09/15/19 21 Office Visit Orthopedics Jayme Benz MD [address] [place] [address] 09/23/19 21 Office Visit Gastroenterology Lyssa Stout CRNP [address] [place] [address] [phone] Scheduled Orders Name Type Priority Associated Diagnoses Orde r Schedule CONTINUOUS GLUCOSE MONITORING PT PROVIDED EQUIPMENT Procedures Routine Type 2 diabetes mellitus with hemoglobin A1c goal of less than 7.0% ([facility]) Ordered: 07/23/2020 Health Maintenance Due Date Last Done Comments [...] of this encounter Implants Implanted Type Area Assembly Room Supervisor Device Identifier Shelf Expiration Date Model / Serial / Lot Microtech Sure Clip Implanted:Qty: 2 on 06/03/2020 by Janis Hatch DO at OR [facility] Clip N/A: Colon 04/21/2022 [facility]-F-26-2 35-C-R / / [id number] documented as of this encounter Visit Diagnoses Diagnosis Type 2 diabetes mellitus with hemoglobin A1c goal of less than 7.0% (HCC)- Primary Portal hypertension (HCC) Portal hypertension Esophageal varices (HCC) Esophageal varices without mention of bleeding documented in this encounter Advance Directives Documents on File Type Date Recorded Patient Evp General Counsel Expl anation Advanced Directive service a kerri [...] Relationship Healthcare Agent Vidal mendosa Communication Syed Juli Spouse Emergency Contact
--- OUTSIDE RECORDS SUMMARY | 2023-05-10 22:05 | External Medical Summary | Summary of Care ---
Author Name Unknown Organization [place] [address] Care Team Providers Care Ecommerce Merchandising Manager Name Role Phone NikAlexandra fernandez Primary Care Provider [phone] Reason for Visit * Reason Comments Wound Care Encounter Details Date Type Department Care Team Description 07/21/2020 Office Visit Wound Care, [place] [address] [place], [place] [id number] Prakash Honeycutt PA-C [address], [place] [address] Open wound of right great toe, subsequent encounter*; Pressure injury of right heel, stage 1; DM type 2 with diabetic peripheral neuropathy ([facility]); Obesity, morbid (more than 100 lbs over ideal weight or BMI > 40) ([facility]) Allergies Active Allergy Reactions Severity Noted Date Comments Adhesive Tape Itching 04/29/2020 Penicillins Rash 02/12/2008 Perflutren Protein A Microsph 2019 Definity-lower back pain documented as of this encounter (statuses as of 07/21/2020) Medications Medication Sig Dispensed Refills Start Date [...] 120 Vial 11 10/02/2019 Active nystatin (NYSTOP) 476165 UNIT/GM powder Apply topically to affected area [...] SYSTM) MISC Freestyle Xochitl 2 14-day Sensor (957210) (2 sensors=28 day/1-month supply) 2 Each 1 05/26/2020 Active Continuous Blood Gluc Data Warehouse Architect (FREESTYLE XOCHITL 2 READER SYSTM) KORTNEY Freestyle Xochitl 2 14-day Data Warehouse Architect (920266) 1 Package 0 05/26/2020 Active famotidine (PEPCID) [...] as of this encounter (statuses as of 07/21/2020) Active Problems Problem Noted Date Uncontrolled type [...] as of this encounter (statuses as of 07/21/2020) Resolved Problems Problem Noted Date Resolved Date [...] pain 01/24/2012 01/17/2017 Genetic Sleep Disorder Research Other*[id number] 05/13/2011 04/07/2016 Obstructive sleep apnea 01/18/2011 12/27/19 [...] as of this encounter (statuses as of 07/21/2020) Immunizations Name Administration Dates Next Due HEP [...] Pressure - - Pulse - - Temperature 36.6 C (97.9 F) 07/21/2020 1:19 PM ES T Respiratory Rate - - [...] bathing? 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-model photographers' helps 07/15/2020 Because of a physical, menta [...] of this encounter Progress Notes * Prakash Honeycutt PA-C - 07/21/2020 1:09 PM EST WOUND OUTPATIENT FOLLOW-UP NOTE Patient seen today for hospital discharge f/u of Ward Grade 2 diabetic ulcer of the R 1st toe w/localized infection and soft tissue necrosis s/p D&I by Dr. Vazquez 04/16/20. The wound has been present sinceearly 03/2020. Patient indicates the wound startedwith pain after she stubbed her toe getting in/out of her car. On 03/04/2020 she had RLE DFU with hemorrhagic blister of the great toe previously treated by podiatry at [facility], the R great toenail removed by her podiatristand she starteddeveloping purulent drainage from around the toenail bed and pad of the toe along with some blood. [place] [facility] [place] 04/25/20 for R 1st toe infection and cellulitis. Wound was debrided inthe OR. Patient has been currently treating with nothing. Was dx with fx of R 1st toe in late 05/2020. Notes toe is mva still operator to touch, still has bruising on dorsal toe. Orthopaedics had recommended flat shoe. She notes she does not remember receiving one. She is also being seen today for f/u of a stage 1 pressure injury on the R posterior heel. Patient states it have been present since05/2020. Thinks the wound startedfrom pressure and friction fromrubbing on her bed sheets. Has been treating withoffloading. Patient was recently admitted 07/04/20-07/07/20 for Bacteremia and 07/14/20- 07/16/20 for observation for generalized weakness and dizziness secondary to hyperglycemia, discharged home to f/u with endocrinology. She notes that she does not feel well today, and has not felt well for the past couple weeks. She is wheelchair bound. She only uses her electric wheelchair to ambulate.She lives with her . Current dressing: See Wound Assessment Dressing change frequency: N/A RLE Compression: none LLE Compression: none RLE Wt Bearing Offloading: none LLE Wt Bearing Offloading: none RLE Non-Wt Bearing Offloading: none LLE Non-Wt Bearing Offloading: none Offloading Surface for Bed: none Offloading Surface for Chair / Wheelchair: none ROS: Pain: mild Drainage: no Swelling: no Erythema: no Fever/Chills: no Malaise: no ROS was negative other than stated above. Results for RYLAND SHAW ( ) as of 07/21/2020 13:17 Ref. Range 07/04/2020 14:51 07/05/2020 09:11 07/06/2020 05:24 07/06/2020 16:08 07/07/2020 07:30 07/14/2020 16:24 07/16/2020 04:46 07/16/2020 12:11 WBC Latest Ref Range: 4.00 - 10.80 K/uL 2.40 (L) 2.77 (L) 2.49 (L) 2.42 (L) 2.40 (L) 3.11 (L) 2.02 (L) 2.45 (L) RBC Latest Ref Range: 3.85 - 5.15 M/uL 2.68 (L) 2.66 (L) 2.43 (L) 2.88 (L) 2.84 (L) 3.04 (L) 2.50 (L) 2.77 (L) HGB Latest Ref Range: 12.0 - 15.3 g/dL 7.1 (L) 7.0 (LL) 6.4 (LL) 7.7 (L) 7.6 (L) 8.3 (L) 6.8 (LL) 7.7 (L) HCT Latest Ref Range: 36.0 - 45.2 % 25.4 (L) 25.6 (L) 22.4 (L) 26.0 (L) 25.1 (L) 28.8 (L) 24.0 (L) 25.6 (L) Results for RYLAND SHAW ( ) as of 07/06/2020 10:13 Ref. Range 08/23/2016 15:40 11/11/2019 14:36 04/14/2020 17:53 05/25/2020 15:41 07/04/2020 14:51 LOW SENSITIVITY CRP Latest Ref Range: 0 - 5 mg/L 28 (H) 12 (H) 11 (H) Results for RYLAND SHAW ( ) as of 07/06/2020 10:13 Ref. Range 02/27/2014 09:21 04/14/2020 17:53 04/25/2020 05:05 05/25/2020 15:41 07/05/2020 09:11 SEDIMENTATION RATE Latest Ref Range: 0 - 20 mm/hour 34 (H) 50 (H) 46 (H) VASCULAR LAB RESULTS DATE OF EXAMINATION: 04/15/20 INDICATION: R/O PAD ANKLE BRACHIAL INDEX OF THE LOWER EXTREMITIES IMPRESSION: ASHLEY at rest is 0.98 on the right and 1.07 on the left. For the rightlower extremity: Lower extremity Doppler Evaluation is normal at rest with no evidence of significant arterial occlusive disease. For the left lower extremity: Lower extremity Doppler Evaluation is normal at rest with no evidence of significant arterial occlusive disease. PPG tracing of the great toe has excellent amplitude. EXAM XR TOES 2 OR MORE VIEWS-06/09/2020 2:42 pm HISTORY R/O fx of R 1st toe. IMPRESSION Curvilinear lucency at the plantar aspect of the base of the 1st distal phalanx may reflect a nondisplaced fracture. Correlate for focal tenderness to this region. EXAM Right XR TOES 2 OR MORE VIEWS-07/04/2020 2:40 pm HISTORY concern for infection, bacteremia IMPRESSION Diffuse soft tissue swelling about the right forefoot, nonspecific finding. Correlate clinically for cellulitis. No radiographic evidence of osteomyelitis. Hemoglobin AIC Results: HEMOGLOBIN, A1C(%) Lucio Dt/Tm Resulted Value Status 07/06/20 5:24A 07/06/20 9.9* FINAL 05/26/20 4:44A 05/26/20 11.0* FINAL 04/28/20 4:37P 04/28/20 9.9* FINAL Tobacco History: Social History Tobacco Use Smoking Status Never Smoker Smokeless Tobacco Never Used WOUND ASSESSMENT: Alteration in Skin Integrity Right Toe (Active) Primary Dressing Present (removed today) None 07/21/20 1300 Secondary Dressing Present (removed today) None 07/21/20 1300 Tertiary Dressing Present (removed today) None 07/21/20 1300 Quaternary Dressing Present (removed today) None 07/21/20 1300 Wound Length (cm) 0 cm 07/21/20 1300 Wound Width (cm) 0 cm 07/21/20 1300 Wound Depth (cm) 0 cm 07/21/20 1300 Drainage none 07/21/20 1300 Odor (after cleansing wound) No 07/21/20 1300 Kiley-Wound (Surrounding Skin) Ecchymotic;Intact;Tender;Nonerythematous 07/21/20 1300 Evidence of Infection No 07/21/20 1300 Wound Surface Area (cm^2) 0 cm^2 07/21/20 1300 Wound Volume (cm^3) 0 cm^3 07/21/20 1300 Bruising of her R 1st toe noted. Tender to palpation. ASSESSMENT/PLAN: 1.Ward Grade 2 diabetic ulcer of the R 1st toe w/localized infection and soft tissue necrosis,s/p D&I by Dr. Vazquez 04/16/20-Remains healed today. 2. T2DM - Poorly controlled. 3. Cirrhosis of the liver and thrombocytopenia . 4. Cerebral Palsy. 5. Venous insufficiency. 6. Morbid Obesity. 7. Limited mobility. 8. Stage 1 Pressure injury to R posterior heel-Remains healed today. 9. Hx Nondisplaced fracture of base of R 1st distal phalanx - notes persistent tenderness in toe, No evidence of infection today. We discussed signs and symptoms of wound recurrence. Advised pt to call immediately if any of theseoccur. Recommended keeping the area protected for the next several weeks. Advised patient to schedule appointment to f/u with ortho for persistent tenderness in R 1st toe Advised to use offloading shoe per Orthopaedics for R toe fx. Provided flat Darco shoe for R foot. Recommend routine podiatric care. Follow-up: PRN Prakash Honeycutt, PA-C 07/21/2020 1:10 PM Wound Care, [place] [address] [facility] [address] No longer with any open wounds. Still with some ecchymosis of the RLE great toe. To follow with Ortho for this. Local care as above. Pt seen and examined by me. Agree with treatment and plan. Jefferson Rios MD 07/21/2020 2:22 PM documented in this encounter Plan of Treatment Upcoming Encounters Date Type Specialty Care Team Description 0 Office Visit Family Medicine Alexandra Caceres DO [address] [place] [address] [phone] Office Visit Endocrinology Alberta Duque PA-C [address] [place] [address] 0 Hem/Onc Treatment Hematology Oncology Maryellen, Chair [address] [place] [address] [phone] Office Visit Gastroenterology Essence Chase PA-C [address] [place] [address] [phone] Office Visit Pharmacy [facility] [address] [place] [address] [phone] Hem/Onc Treatment Hematology Oncology Maryellen, Chair [address] [place] [address] [phone] Hospital Encounter Surgery Janis Hatch DO [address] [facility] [place] [address] [phone] Surgery Surgery Janis Hatch DO [address] [facility] [place] [address] [phone] ESOPHAGOGASTRODUODENOSCOPY (EGD), FLEXIBLE, TRANSORAL, DIAGNOSTIC 0 Office Visit Family Medicine Alexandra Caceres, DO [address] [place] [address] [phone] Imaging Radiology 1 Office Visit Orthopedics Jayme Benz MD [address] [facility] [place] [address] 1 Office Visit Gastroenterology Lyssa Stout CRNP [address] [facility] [place] [address] [phone] Health Maintenance Due Date Last Done Comments [...] of this encounter Implants Implanted Type Area Apartment Maintenance Device Identifier Shelf Expiration Date Model / Serial / Lot Microtech Sure Clip Implanted:Qty: 2 on 06/03/2020 by Janis Hatch DO at OR [facility] Clip N/A: Colon 04/21/2022 [facility]-F-26-2 35-C-R / / [id number] documented as of this encounter Visit Diagnoses Diagnosis Open wound of right great toe, subsequent encounter- Primary Pressure injury of right heel, stage 1 DM type 2 with diabetic peripheral neuropathy (HCC) Type II or unspecified type diabetes mellitus with neurological manifestations, not stated as uncontrolled Obesity, morbid (more than 100 lbs over ideal weight or BMI > 40) (HCC) Morbid obesity Portal hypertension (HCC) Portal hypertension Esophageal varices (HCC) Esophageal varices without mention of bleeding documented in this encounter Advance Directives Documents on File Type Date Recorded Patient Financial Report Service Sales Agent Expl anation Advanced Directive service a kerri [...] Name Relationship Healthcare Agent [facility] p Communication Syed Shaw Spouse Emergency Contact
--- OUTSIDE RECORDS SUMMARY | 2023-05-10 22:05 | External Medical Summary ---
Author Name Unknown Address [facility] [place] [address] Phone Organization K01:[place] [id number] Laboratory Report Ordering Provider Test Date Status DANIAL,ALBERTO 07/21/2020 17:28:00 Final Observation Date Value Abnormality Reference (Units ) Status Troponin T 07/21/2020 18:10 7 0-14 (ng/L) Final Performing Location [address] [address]
--- OUTSIDE RECORDS SUMMARY | 2023-05-10 22:05 | External Medical Summary ---
Author Name Unknown Address [facility] [address] [place] [address] Phone Organization K01:[place] [address] [address] [facility] [place] [address] Laboratory Report Ordering Provider Test Date Status ALBERTO BARROW 07/21/2020 17:50:00 Final Observation Date Value Abnormality Reference (Units ) Status SPECIMEN SOURCE 07/21/2020 17:54 NASAL TURBINATE Final : First test for condition of interest 07/21/2020 17:54 NO Final status 07/21/2020 17:54 UNKNOWN Final Employed in a healthcare setting 07/21/2020 17:54 NO Final Patient was hospitalized because of this condition 07/21/2020 17:54 NO Final Admit to ICU for cond of interest 07/21/2020 17:54 NO Final Resides in congregate care setting 07/21/2020 17:54 NO Final Has symptoms related to cond of interest 07/21/2020 17:54 YES Final IF YES, WHAT SYMPTOMS ARE PRES 07/21/2020 17:54 COUGH Final Performing Location [address] [place] [address]
--- OUTSIDE RECORDS SUMMARY | 2023-05-10 22:06 | External Medical Summary | Summary of Care ---
Author Name Unknown Organization [facility] Address [facility] [place] [address] Care Team Providers Care Corrugator Operator Helper Name Role Phone Nicki Alexandrajennie Ashton DO Primary Care Provider Reason for Visit * Reason Comments IV Therapy HOLD Venofer #1/2 Encounter Details Date Type Department Care Team Description 07/20/2020 Hem/Onc Treatment Hematology/Oncology Treatment, Sophia [address] [place] [address] Maryellen, Chair 6 Hem Onc Scenery [address] [place] [address] [phone] Iron deficiency anemia due to chronic blood loss* Allergies Active Allergy Reactions Severity Noted Date Comments Adhesive Tape Itching 04/29/2020 Penicillins Rash 02/12/2008 Perflutren Protein A Microsph 2019 Definity-lower back pain documented as of this encounter (statuses as of 07/20/2020) Medications Medication Sig Dispensed Refills Start Date [...] 120 Vial 11 10/02/2019 Active nystatin (NYSTOP) 204866 UNIT/GM powder Apply topically to affected area [...] per day. 1 Kit 0 11/19/2019 Active Additional Information Patient not taking. Informant: Pharmacy, Reported on 07/15/2020 Glucose Blood (BLOOD GLUCOSE TEST) STRP Use [...] SYSTM) MISC Freestyle Xochitl 2 14-day Sensor (011710) (2 sensors=28 day/1-month supply) 2 Each 1 05/26/2020 Active Additional Information Patient not taking. Informant: Pharmacy, Reported on 07/15/2020 Continuous Blood Gluc Import Clerk (FREESTYLE XOCHITL 2 READER SYSTM) KORTNEY Freestyle Xochitl 2 14-day Import Clerk (859390) 1 Package 0 05/26/2020 Active Additional Information Patient not taking. Informant: Pharmacy, Reported on 07/15/2020 famotidine (PEPCID) 20 MG Tablet Take 1 [...] as of this encounter (statuses as of 07/20/2020) Active Problems Problem Noted Date Uncontrolled type [...] as of this encounter (statuses as of 07/20/2020) Resolved Problems Problem Noted Date Resolved Date [...] pain 01/24/2012 01/17/2017 Genetic Sleep Disorder Research Other*[id number] 05/13/2011 04/07/2016 Obstructive sleep apnea 01/18/2011 12/27/19 [...] as of this encounter (statuses as of 07/20/2020) Immunizations Name Administration Dates Next Due HEP [...] Sign Reading Time Taken Comments Blood Pressure 107/86 07/20/2020 1:53 PM EST Pulse 63 07/20/2020 1:53 PM EST Temperature 36.7 C (98 F) 07/20/2020 1:53 PM EST Respiratory Rate 20 07/20/2020 1:53 PM EST Oxygen Saturation - - Inhaled [...] or bathing? 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-weigher operator helps 07/15/2020 Because of a physical, [...] Nursing Notes * Mary Steve RN - 07/20/2020 2:20 PM EST The patient presents to the office today for Venofer #1/2. Unable to obtain IV access. Attempts x2 by Sowmya Steve RN and one attempt by Luis A Montes De Oca RN. The patient stated that she she would like to reschedule for Monday07/24/20. The patient was given a new appointment. The patient left the office in stable condition, free from injury. documented in this encounter Plan of Treatment Upcoming Encounters Date Type Specialty Care Team Description 0 Office Visit Wound Care Prakash Honeycutt PA-C [address], [place] [id number] 0 Office Visit Family Medicine Alexandra Caceres DO [facility] [place] [address] 0 Office Visit Endocrinology Alberta Duque PA-C [address], [place] [id number] 0 Hem/Onc Treatment Hematology Oncology [place], Chair [address] Hem On[address] [place], [place] [address] [phone] Office Visit [facility]enterology Essence Chase [facility]-C [address] [facility] [place] [address] [phone] Office Visit [facility] [address], [place] [id number] 0 Hem/Onc Treatment Hematology Oncology [place], Chair [address] Hem Onc Sc[address] [place] [address] [phone] Hospital Encounter Surgery Janis Hatch, DO [address] [facility] [place] [address] [phone] Surgery Surgery Janis Hatch, DO [address] [facility] [place] [address] [phone] ESOPHAGOGASTRODUODENOSCOPY (EGD), FLEXIBLE, TRANSORAL, DIAGNOSTIC 0 Office Visit Family Medicine Alexandra Caceres, [address] [place] [address] [phone] Imaging Radiology 1 Office Visit [facility]astroenterology [facility]sa Stout CR[facility] [address] [facility] [place] [address] [phone] Health Maintenance Due Date Last Done Comments [...] of this encounter Implants Implanted Type Area Rewind Operator Device Identifier Shelf Expiration Date Model / Serial / Lot [employer] Sure Clip Implanted:Qty: 2 on 06/03/2020 by Janis Hatch DO at OR [facility] Clip N/A: Colon 04/21/2022 [facility]-F-[id number] 35-C-R / / [id number] documented as of this encounter Visit Diagnoses Diagnosis Iron deficiency anemia due to chronic blood loss- Primary Iron deficiency anemia secondary to blood loss (chronic) Portal hypertension (HCC) Portal hypertension Esophageal varices (HCC) Esophageal varices without mention of bleeding documented in this encounter Advance Directives Documents on File Type Date Recorded Patient Mail Sorter Expl anation Advanced Directive service a kerri [...]
--- OUTSIDE RECORDS SUMMARY | 2023-05-10 22:06 | External Medical Summary ---
Author Name Unknown Address Unknown Organization [facility]:IT USE ONLY!!! Laboratory Report Ordering Provider Test Date Status [facility] Provider 07/21/2020 15:45:00 Final Observation Date Value Abnormality Reference (Units ) Status Glucose Point of Care 07/21/2020 15:47 268 Above high normal 70-120 (mg/dL) Final Performing Location IT USE ONLY!!!
--- OUTSIDE RECORDS SUMMARY | 2023-05-10 22:06 | External Medical Summary | Summary of Care ---
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 Head Name Role Phone CarlosjosefaAlexandra fernandez Primary Care Provider [phone] Reason for Visit * Reason Comments Follow Up 6m Encounter Details Date Type Department Care Team Description 07/13/2020 Office Visit Hematology/Oncology [facility] [address] [place] [address] Zelda Kirk CRNP [address], [place] [id number] Iron deficiency anemia due to chronic blood loss*; NG (nonalcoholic steatohepatitis); Pancytopenia (HCC); Splenomegaly; Esophageal varices without bleeding, unspecified esophageal varices type (HCC) Allergies Active Allergy Reactions Severity Noted Date Comments Adhesive Tape Itching 04/29/2020 Penicillins Rash 02/12/2008 Perflutren Protein A Microsph 2019 Definity-lower back pain documented as of this encounter (statuses as of 07/17/2020) Medications Medication Sig Dispensed Refills Start Date [...] 120 Vial 11 0 Active nystatin (NYSTOP) 379450 UNIT/GM powder Apply topically to affected area [...] per day. 1 Kit 0 0 Active Additional Information Patient not taking. [...] SYSTM) MISC Freestyle Xochitl 2 14-day Sensor (214654) (2 sensors=28 day/1-month supply) 2 Each 1 0 Active Additional Information Patient not taking. Informant: Pharmacy, Reported on 07/15/2020 Continuous Blood Gluc Sawmill Or Timber Yard Worker (FREESTYLE XOCHITL 2 READER SYSTM) KORTNEY Freestyle Xochitl 2 14-day Sawmill Or Timber Yard Worker (283335) 1 Package 0 0 Active Additional Information Patient not taking. [...] once weekly 6 mL 3 0 Active Lantus SoloStar 100 UNIT/ML Subcutaneous Solution Pen-injector (insulin glargine)Indicati ons:Type 2 diabetes mellitus with hemoglobin A1c goal of less than 7.0% (HCC) Inject 30 units under the skin once a day 30 mL 3 0 Active BD Pen Needle Mini U/F 31G X 5 MM (Insulin Pen Needle)Indication s:Type 2 diabetes mellitus with hemoglobin A1c goal of less than 7.0% (HCC) Use to inject insulin four times daily; E11.42 400 Each 3 0 Active Insulin Aspart 100 UNIT/ML Subcutaneous Solution (NovoLOG) Inject 26 units under the skin before breakfast, 26 units before lunch, and 30 units before supper 60 mL 3 0 Active Pantoprazole Sodium 20 MG Oral Tablet Delayed Release (PROTONIX)Indicat ions:NAFLD (nonalcoholic fatty liver disease),Other cirrhosis of liver (HCC) Take 2 Tabs by mouth 2 times a day. 180 Tab 1 0 Active atorvaSTATin (LIPITOR) 40 MG TabletIndications :Dyslipidemia, goal LDL below 70 TAKE 1 TABLET BY MOUTH EVERY NIGHT AT BEDTIME 90 Tab 1 0 07/16/20 20 Discontinued furosemide (LASIX) 20 MG TabletIndications :Localized edema,Venous stasis dermatitis of both lower extremities TAKE 1 TABLET BY MOUTH ONCE DAILY NEEDED FOR EDEMA 30 Tab 5 0 07/16/20 20 Discontinued Sucralfate 1 GM/10ML Oral Suspension (Carafate) Take 10 mL by mouth 2 times a day. Use twice daily for 4 weeks 600 mL 0 0 07/15/20 20 Discontinued(Med Bent Pixelstion List Clean Up) SM Aspirin Adult Low Strength 81 MG Oral Tablet Delayed Release (aspirin enteric coated) TAKE 1 TABLET BY MOUTH ONCE DAILY 90 Tab 1 0 07/16/20 20 Discontinued Hospital, Clinic, or Other Facility Administered Medication Ordered Dose Route Frequency Start Date End Date Status iron sucrose (VENOFER) inj 300 mgIndications:Iron deficiency anemia due to chronic blood loss 300 mg IV ONCE 07/13/2020 07/13/2020 Dis continued documented as of this encounter (statuses as of 07/17/2020) Active Problems Problem Noted Date Uncontrolled type [...] as of this encounter (statuses as of 07/17/2020) Resolved Problems Problem Noted Date Resolved Date [...] pain 01/24/2012 01/17/2017 Genetic Sleep Disorder Research Other*[id number] 05/13/2011 04/07/2016 Obstructive sleep apnea 01/18/2011 12/27/19 [...] as of this encounter (statuses as of 07/17/2020) Immunizations Name Administration Dates Next Due HEP [...] Sign Reading Time Taken Comments Blood Pressure 130/71 07/13/2020 2:31 PM EST Pulse 63 07/13/2020 2:31 PM EST Temperature 35.8 C (96.5 F) 07/13/2020 2:31 PM ES T Respiratory Rate 16 07/13/2020 2:31 PM EST Oxygen Saturation 94% 07/13/2020 2:31 PM EST Inhaled Oxygen Concentration - - Weight 121.5 kg (267 lb 14.4 oz) 07/13/2020 2:31 PM EST Height - - Body Mass Index 54.11 07/04/2020 10:13 PM EDT documented in this encounter Functional Status Functional Status Response Date of Assess ment Are you deaf or do you have serious difficulty h earing? No 07/04/2020 Are you blind or do you have serious difficulty seeing, even when wearing glasses? No 07/04/2020 Do you have serious difficul ty walking or climbing stairs? (5 years old or older) No 07/04/2020 Do you have difficulty dress ing or bathing? (5 years old or older) No 07/04/2020 Because of a physical, menta l, or emotional condition, do you have difficulty doing errands alone such as visiting a doctor s office or shopping? (15 years old or older) No 07/04/20 20 Cognitive Status Response Date of Assessm ent Because of a physical, menta l, or emotional condition, do you have serious difficulty concentrating, remembering, or making decisions? (5 years old or older No 07/04/2020 documented as of this encounter Progress Notes * Zelda Kirk CRNP - 07/13/2020 2:30 PM EST Hematology/Oncology Outpatient Clinic note [facility] [address] Name: Ryland Shaw Date: 07/13/2020 CHIEF COMPLAINT: Ryland Shaw is a 65 year old female patient of Dr. Sanchez here today for f/u visit. DIAGNOSIS: -pancytopenia related to underlying cirrhosis of liver and splenomegaly -iron deficiency anemia. DIAGNOSTIC WORKUP: She is referred to hematology for evaluation of the anemia, I I reviewed her medical records, also reviewed her medical records from [facility]. She has underlying cirrhosis of liver, has evidence of iron deficiency for the last 1 year, Ferritin level was less than 10 earlier in December 2018, she was on oral iron replacement therapy once a day,lately increase to twice a day. She was admitted at [facility] in November 2019, she received 1 to PRBC at that time. She also had endoscopic evaluation, last upper GI endoscopy done on 11/27/2019 Which showed nonbleeding grade 1 esophageal varices, portal hypertensive gastropathy, normal examined duodenum noted. OTHER IMPORTANT HISTORY: - she has underlying cerebral palsy, nowadays she ambulates with the help of the motorized scooter. -Diabetes mellitus, neuropathy -chronic bilateral leg edema, she is on diuretic treatment. CURRENT TREATMENT: -she is on oral iron replacement therapy twice a day -planning to start intravenous iron in the form of Venofer to correct the iron deficiency. The above history was obtained from patient chart, Dr. Sanchez's progress note from 12/03/19, and confirmed with patient. HISTORY OF PRESENT ILLNESS: Ryland Shaw is a 65 year old female with a history as outlined above. Currently here for f/u visittoday for evaluation of pancytopenia. She is accompanied by her . The pt reports that she has multiple medical issues and requires frequent hospitalization. She denies any fever, chills, nausea, vomiting, melena, hematochezia, hemoptysis, and diarrhea. Her appetite is good and her wt is stable. She is non ambulatory and uses a motorized scooter. She does report fatigue and activity intolerance. Her is her primary bobj developer. Past Medical History: Diagnosis Date Cerebral palsy ([facility]) 01/24/2012 Chronic constipation Chronic hypoxemic respiratory failure ([facility]) 04/08/2019 Chronic pain 03/27/2012 Cirrhosis of liver ([facility]) 11/20/2017 DDD (degenerative disc disease), lumbar DM [...] 7.0% ([facility]) 09/26/2013 ICD-10 update of inactive term Social History Socioeconomic History Marital status: Spouse name: Syed Number of children: 1 Years of education: Not on file Highest education level: Not on file Occupational History Not on file Social Needs Financial resource strain: Not on file Food insecurity Worry: Never true Inability: Never true Transportation needs Medical: Not on file [...] file Gets together: Not on file Attends christianity service: Not on file Active member of [...] file Social History Narrative 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 49 education: 12 service: no hobbies/interests: reading transfusions: no exercise: no diet: no adventism/religious: Raised mormon marital status: 2nd time 3/07 children: 1 gc: 0/15 for 2nd ggc: 0 pets: Dog, lots of cats exposure to violence/threats/abuse: no things to improve: no Vaping/E-Cigarette Use Vaping/E-Cigarette Use Never User Vaping/E-Cigarette Substances Nicotine No Other No Flavoring No THC No Cannabidiol (CBD) No Vaping/E-Cigarette Devices Disposable No Pre-filled or Refillable Cartridge No Refillable Tank No Pre-filled Pod No Past Surgical History: Procedure Laterality Date BONE DEBRIDEMENT, FIRST 20 CM2 Right 04/16/2020 DEBRIDEMENT SKIN SUBCUTANEOUS TISSUE MUSCLE AND BONE performed by Josh Vazquez MD at OR [facility] DELIVERY 04/20/1982 COLONOSCOPY 04/21/2009 repeat in 10 years COLONOSCOPY, DIAGNOSTIC (RECTUM) 10/04/2016 normal bx, repeat 10 yrs/[facility] COLONOSCOPY, DIAGNOSTIC (RECTUM) N/A 06/03/2020 internal hemorrhoids/biopsies show adenomatous polyps/recall 5 years/COLONOSCOPY FLEXIBLE PROXIMAL DIAGNOSTIC performed by Janis Hatch DO at OR [facility] DENTAL SURGERY PROCEDURE NEC wisdom teeth x 4 DILATION AND CURETTAGE (D&C) EGD, FLEXIBLE, DIAGNOSTIC 10/04/2016 gastritis/[facility] EGD, FLEXIBLE, DIAGNOSTIC 01/11/2018 eso varices, retained food, repeat 1 yr/[facility] EGD, FLEXIBLE, DIAGNOSTIC N/A 06/03/2020 severe erosive esophagitis/non-bleeding grade II esophageal varices/gastritis/biopsies show inflammatory changes/repeat 3-4 months/ESOPHAGOGASTRODUODENOSCOPY (EGD), FLEXIBLE, TRANSORAL, DIAGNOSTIC per formed by Janis Hatch DO at OR [facility] PELVIS/HIP JOINT SURGERY NEC teenager aid in walking REPAIR/GRAFT ACHILLES TENDON age 40 aid in walking Family History Problem Relation Age of Onset Heart Disorder Father of LA at age 61 Diabetes Father Heart Disorder Mother of LA age 72 Cancer None Arthritis None Stroke None Heart Disorder Sister Mi at age 46 Hypertension Sister Mental Disorder None Review of patient's allergies indicates: Allergen Reactions Adhesive Tape Itching Pcn [Penicillins] Rash Perflutren Protein A Microsph Definity-lower back pain Current Outpatient Medications Medication Sig Dispense Refill Pantoprazole Sodium 20 MG Oral Tablet Delayed Release (PROTONIX) Take 2 Tabs by mouth 2 times a day. 180 Tab 1 Insulin Aspart 100 UNIT/ML [...] skin once a day 30 mL 3 SM Aspirin Adult Low Strength 81 MG Oral Tablet Delayed Release (aspirin enteric coated) TAKE 1 TABLET BY MOUTH ONCE DAILY 90 Tab 1 Trulicity 1.5 MG/0.5ML Subcutaneous Solution Pen-injector (Dulaglutide) Inject 1.5mg (one pen) under the skin once weekly 6 mL 3 Sucralfate 1 GM/10ML Oral Suspension (Carafate) Take 10 mL by mouth 2 times a day. Use twice daily for 4 weeks 600 mL 0 famotidine (PEPCID) 20 MG Tablet Take 1 Tab by mouth every night at bedtime. 34 Tab 0 Continuous Blood Gluc Sawmill Or Timber Yard Worker (FREESTYLE XOCHITL 2 READER SYSTM) KORTNEY Freestyle Xochitl 2 14-day Sawmill Or Timber Yard Worker (955656) 1 Package 0 Continuous Blood Gluc Sensor (FREESTYLE XOCHITL 2 SENSOR SYSTM) MISC Freestyle Xochitl 2 14-day Sensor (735018) (2 sensors=28 day/1-month supply) 2 Each 1 [...] Tab by mouth daily. 90 Tab 3 furosemide (LASIX) 20 MG Tablet TAKE 1 TABLET BY MOUTH ONCE DAILY NEEDED FOR EDEMA 30 Tab 5 atorvaSTATin (LIPITOR) 40 MG Tablet TAKE 1 TABLET BY MOUTH EVERY NIGHT AT BEDTIME 90 Tab 1 Blood Glucose Monitoring Suppl [...] With spacer 16 g 1 nystatin (NYSTOP) 304628 UNIT/GM powder Apply topically to affected area [...] daily. 1 Tab 0 REVIEW OF SYSTEMS: Performance Status: Normal - ECOG 4 Constitutional: Normal - No Fever, chills, night sweats, or weight loss Eyes: Normal - No change in visual acuity, blurred or double vision Ears, Nose, Sinuses: Normal - No epistaxis, facial pain, nasal discharge or change in hearing Mouth, Pharynx: Normal - No pain, ulceration, or sores noted Cardiovascular: Normal - No chest pain, [place], or palpitations Respiratory: Normal - No shortness of breath, cough, hemoptysis, or pleuritic chest pain Gastrointestinal: Normal - No abdominal pain, nausea, vomiting, diarrhea, rectal pain or bleeding Genitourinary: Normal - Denies Hematuria or dysuria Musculoskeletal: Normal - No bone pain Skin: Normal - No skin rash or lesions noted Neurologic: Normal - No numbness, weakness, neuropathic pain or change in cognitive function Hematologic: Normal - No bleeding or lymph nodes noted OBJECTIVE: Filed Vitals: 07/13/20 1431 BP: 130/71 Pulse: 63 Resp: 16 Temp: 35.8 C (96.5 F) TempSrc: Tympanic SpO2: 94% Weight: 121.5 kg (267 lb 14.4 oz) Wt Readings from Last 5 Encounters: 07/16/20 122.6 kg (270 lb 4.5 oz) 07/13/20 121.5 kg (267 lb 14.4 oz) 07/07/20 121.4 kg (267 lb 9.6 oz) 06/09/20 113.4 kg (250 lb) 06/03/20 113.4 kg (250 lb) PHYSICAL EXAM: General Appearance: Abnormal. + Morbidly obese, chair-fast, chronically ill appearing patient but in no acute distress. Skin: Normal- No rashes, lesions or petechiae. HEENT: Normal - No oral or pharyngeal masses, ulceration or thrush noted, no sinus tenderness Lymph Nodes: Normal - No palpable lymph nodes in the neck or supraclavicular areas Lungs/Thorax: Normal - Clear to auscultation Heart: Normal - Regular rate and rhythm, normal S1, S2, no appreciable murmurs, rubs, gallops Pulses/Extremities: Normal - 2+ throughout and symmetrical. +edema of bilateral lower ext. Abdomen: Normal - Soft, nontender, bowel sounds present, no appreciable hepatosplenomegaly, no palpable masses Musculoskeletal: Normal - No pain on palpation over bony prominence, no joint or bony deformity Neurologic: Normal - Grossly intact Psyche: No vegetative signs of depression. LABS: 07/05/20 Results for RYLAND SHAW Ref. Range 07/05/2020 09:11 FERRITIN Latest Ref Range: 13 - 150 ng/mL 19.2 IRON Latest Ref Range: 33 - 151 ug/dL 23 (L) IRON SCREEN, INCLUDING TIBC Unknown Rpt (A) TRANSFERRIN SAT % Latest Ref Range: 15 - 55 % 6 (L) IRON BINDING CAP Latest Ref Range: 250 - 425 ug/dL 368 07/07/20 WBC 4.00 - 10.80 K/uL 2.40Low RBC 3.85 - 5.15 M/uL 2.84Low HGB 12.0 - 15.3 g/dL 7.6Low HCT 36.0 - 45.2 % 25.1Low MCV 81.5 - 97.5 fL 88.4 MCH 27.0 - 34.0 pg 26.8Low MCHC 32.0 - 36.0 g/dL 30.3Low RDW 11.5 - 15.5 % 17.2High PLATELET COUNT 140 - 400 K/uL 75Low IMPRESSION/PLAN: Iron Deficiency Anemia Pancytopenia related to cirrhosis of liver and splenomegaly Esophogeal Varices -Anemia. No active bleeding. No chest pain/sob. Presently no indication for transfusion. Monitor. -Complains of chronic fatigue and activity intolerance. is primary caregiver. -Follow up w/ GI for management of liver cirrhosis - EGD with gastroenterology on 07/31/20 -Hospitalization at [facility] 07/04/20-07/07/20 -Per DC summary: During this admission, she required transfusion with one unit of pRBCs with subsequent improvement in her hemoglobin. Despite her presumed blood losses, she remained asymptomatic with no clinical bleeding events. Gastroenterology was involved in her care to determine the utility ofrepeating an upper endoscopy and colonoscopy (recently had both of these studies in May 2020). It was decided to defer this (due to low suspicion of active bleed) to her already scheduled upperendoscopy on 08/05/20. Thus, she was discharged home with an increase in her PPI dose to 40 mg BID until she can undergo her endoscopy. After it was determined that patient did not have a clinical infection, she was given two doses of venofer to treat her iron deficiency (iron deficiency labs obtained prior to blood transfusion). Plan: IV iron in the form of Venofer at 300 mg once every 2 weeks (every other week) for 2 additional doses. CBCD, Ferritin, iron profile 4 weeks after the last IV iron treatment. RTC w/ Dr. Sanchez or me approx 5 weeks after completing Venofer. I had a discussion with Ryland Shaw regarding the plan of care, treatment and other issues. 25 minutes were spent counseling the patient face to face. The total time spent in the appointment was 30 minutes. ZAK Fields documented in this encounter Nursing Notes * Lilian Jara CMA - 07/13/2020 2:32 PM EST Patient identifed by name and birthdate Do you have any concerns about pain management for today's visit? No Living Will or Advance Directive for Health Care as noted on the problem list. [facility] is a way you can talk to your provider on line through e-mail. Would you like to sign up? I can activate it for you? NO Filed Vitals: 07/13/20 1431 BP: 130/71 Pulse: 63 Resp: 16 Temp: 35.8 C (96.5 F) TempSrc: Tympanic SpO2: 94% Weight: 121.5 kg (267 lb 14.4 oz) Patient is in Room 5 documented in this encounter Miscellaneous Notes * Addendum Note - Zelda Kirk CRNP - 07/17/2020 11:47 AM EST Addended by: ZELDA KIRK on: 07/17/2020 11:47 AM Modules accepted: Orders documented in this encounter Plan of Treatment Upcoming Encounters Date Type Specialty Care Team Description 0 Hem/Onc Treatment Hematology Oncology [place], Chair 6 Hem Onc Scenery [address] [place] [address] 0 Office Visit Wound Care Prakash Honeycutt PA-C [address] [place] [address] [phone] Office Visit Family Medicine Alexandra Caceres, DO [address] [place] [address] [phone] Office Visit Endocrinology Alberta Duque PA-C [address], [place] [id number] 0 Office Visit [facility]ology [facility] [address] [facility] [address] [phone] Office Visit Pharmacy [facility] [address], [place] [id number] 0 Hem/Onc Treatment Hematology Oncology [place], Chair 11 Hem Onc Scenery [address] [place] [address] [phone] Hospital Encounter [facility] Hatch, DO [address] [facility] [address] [phone] Surgery [facility] Hatch, DO [address] [facility] [place] [address] [phone] ESOPHAGOGASTRODUODENOSCOPY (EGD), FLEXIBLE, TRANSORAL, DIAGNOSTIC 0 Office Visit Family Medicine Alexandra Caceres, DO [address], [place] [id number] 0 Imaging Radiology 1 Office Visit Gastroenterology Lyssa Stout CRNP [address] [facility] [place] [address] [phone] Health Maintenance Due Date Last Done Comments [...] this encounter Implants Implanted Type Area Fisher Device Identifier Shelf Expiration Date Model / Serial / Lot [employer] Sure Clip Implanted:Qty: 2 on 06/03/2020 by Janis Hatch DO at OR [facility] Clip N/A: Colon 04/21/2022 [facility]-F-26-2 35-C-R / / [id number] documented as of this encounter Visit Diagnoses Diagnosis Iron deficiency anemia due to chronic blood loss- Primary Iron deficiency anemia secondary to blood loss (chronic) NG (nonalcoholic steatohepatitis) Other chronic nonalcoholic liver disease Pancytopenia (HCC) Other pancytopenia Splenomegaly Esophageal varices without bleeding, unspecified esophageal varices type (HCC) Portal hypertension (HCC) Portal hypertension Esophageal varices (HCC) Esophageal varices without mention of bleeding documented in this encounter Advance Directives Documents on File Type Date 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
--- OUTSIDE RECORDS SUMMARY | 2023-05-10 22:06 | External Medical Summary ---
Author Name Unknown Address [address] [facility] [place] [address] Phone Organization K01:[facility] [address] [facility] [place] [address] Laboratory Report Ordering Provider Test Date Status RHETT SALOMON 07/21/2020 15:52:00 Final Observation Date Value Abnormality Reference (Units) Status WBC, Total 07/21/2020 16:58 2.65 Below low normal 4.00-10.80 (K/uL) Final RBC 07/21/2020 16:58 2.91 Below low normal 3.85-5.15 (M/uL) Final Hemoglobin 07/21/2020 16:58 8.2 Below low normal 12.0-15.3 (g/dL) Final HCT 07/21/2020 16:58 28.2 Below low normal 36.0-45.2 (%) Final MCV 07/21/2020 16:58 96.9 81.5-97.5 (fL) Final MCH 07/21/2020 16:58 28.2 27.0-34.0 (pg) Final MCHC 07/21/2020 16:58 29.1 Below low normal 32.0-36.0 (g/dL) Final RDW 07/21/2020 16:58 21.2 Above high normal 11.5-15.5 (%) Final Platelets 07/21/2020 16:58 88 Below low normal 140-400 (K/uL) Final MPV 07/21/2020 16:58 NO RESULT - ABNORMAL PLATELET DISTRIBUTION 6.6-11.1 (fL) Final Nucleated erythrocytes/100 leukocytes [Ratio] in Blood by Automated count 07/21/2020 16:58 0 0 (/100 WBCs) Final Segs 07/21/2020 17:03 52.5 40-75 (%) Final Lymphs % 07/21/2020 17:03 28.7 18-42 (%) Final Monos 07/21/2020 17:03 9.4 1-11 (%) Final Eosinophils 07/21/2020 17:03 7.9 Above high normal 0-6 (%) Final Basos 07/21/2020 17:03 1.1 0-2 (%) Final Immature Granulocyte, Percent 07/21/2020 17:03 0.4 0-2 (%) Final Neutrophils [#/volume] in Blood 07/21/2020 17:03 1.39 Below low normal 1.8-7.7 (K/uL) Final Lymphs, absolute 07/21/2020 17:03 0.76 Below low normal 1.0-4.8 (K/uL) Final Monos, Abs 07/21/2020 17:03 0.25 0.0-1.1 (K/uL) Final Eos, Abs 07/21/2020 17:03 0.21 0.0-0.7 (K/uL) Final Basos, Abs 07/21/2020 17:03 0.03 0.0-0.2 (K/uL) Final Immature Granulocytes, Number 07/21/2020 17:03 0.01 0.0-0.2 (K/uL) Final Anisocytosis [Presence] in Blood by Light microscopy 07/21/2020 17:03 MODERATE Final Polychromasia [Presence] in Blood by Light microscopy 07/21/2020 17:03 SLIGHT Final Hypochromia [Presence] in Blood by Light microscopy 07/21/2020 17:03 SLIGHT Final Ovalocytes [Presence] in Blood by Light microscopy 07/21/2020 17:03 FEW Final Performing Location [facility] [address] [facility] [address]
--- OUTSIDE RECORDS SUMMARY | 2023-05-10 22:06 | External Medical Summary ---
Author Name Unknown Address [address] [place], [place] [address] Phone Organization K01:[place] [id number] Laboratory Report Ordering Provider Test Date Status RHETT SALOMON 07/21/2020 15:52:00 Final Observation Date Value Abnormality Reference (Units ) Status Body temperature 07/21/2020 15:59 37.0 (degree C) Final pH of Venous blood 07/21/2020 15:59 7.387 7.320-7.430 (units) Final Carbon dioxide [Partial pressure] in Venous blood 07/21/2020 15:59 47.6 40.0-60.0 (mm Hg) Final Oxygen [Partial pressure] in Venous blood 07/21/2020 15:59 32.1 25.0-50.0 (mm Hg) Final Bicarbonate, Venous 07/21/2020 15:59 28.0 23.0-31.0 (mmol/L) Final Base Excess, Venous 07/21/2020 15:59 3.1 Above high normal 0-2.0 (mmol/L) Final Hemoglobin [Mass/volume] in Blood by Oximetry 07/21/2020 15:59 8.4 Below low normal 12.0-15.3 (g/dL) Final Oxyhemoglobin, Venous (FO2HB) 07/21/2020 15:59 51.0 40.0-85.0 (% total Hgb) Final Carboxyhemoglobin 07/21/2020 15:59 1.5 0-1.5 (% total Hgb) Final Performing Location [address] [address]
--- OUTSIDE RECORDS SUMMARY | 2023-05-10 22:06 | External Medical Summary | Summary of Care ---
Author Name Unknown Organization [place] [address] Care Team Providers Care Push Button Switch Assembler Name Role Phone Alexandra Caceres Primary Care Provider [phone] Reason for Visit * Reason Onset Date Comments Hospital Follow-Up 07/17/2020 Encounter Details Date Type Department Care Team Description 07/17/2020 Telephone Ancillary Department, [address] [address] Rosio Hunter RN Hospital Follow-Up Allergies Active Allergy Reactions Severity [...] 120 Vial 11 10/02/2019 Active nystatin (NYSTOP) 786866 UNIT/GM powder Apply topically to affected area [...] 05/26/2020 Active Continuous Blood Gluc Sensor (FREESTYLE XOCIHTL 2 SENSOR SYSTM) MISC Freestyle Xochitl 2 14-day Sensor (917662) (2 sensors=28 day/1-month supply) 2 Each 1 05/26/2020 Active Additional Information Patient not taking. Informant: Pharmacy, Reported on 07/15/2020 Continuous Blood Gluc Spoke Maker (FREESTYLE XOCHITL 2 READER SYSTM) KORTNEY Freestyle Xochitl 2 14-day Spoke Maker ([id number]) 1 Package 0 05/26/2020 Active Additional Information [...] pain 01/24/2012 01/17/2017 Genetic Sleep Disorder Research Other*[id number] 05/13/2011 04/07/2016 Obstructive sleep apnea 01/18/2011 12/27/19 [...] or bathing? 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-cordwainer helps 07/15/2020 Because of a physical, menta [...] encounter Miscellaneous Notes * Telephone Encounter - Rosio Hunter RN - 07/17/2020 2:40 PM EST Transitions of Care Note Reason for Referral:Recent Admission Phone visit for follow up: Duy Admitted to: [facility] [place], Date: 07/14/2020 Discharged to: Home, Date: 07/16/2020 Diagnosis driving hospitalization: Generalized Weakness Source/Contact: Patient. sleeping at time of call SUBJECTIVE Consent: Verbal consent for review of hospital discharge: Yes REVIEW OF SYSTEMS Patient/Other Reports: Current patient/caregiver problems or concerns: na CV: Denies problems Pulmonary: SOB- on exertion Chills/Sweats/Fever:Denies chills/sweats Denies fever Appetite:Denies problems such as nausea, vomiting, burning, decreased appetite Bowel: denies problems Bladder: denies problems Wound (If applicable): R. Great toe. See wound clinic on 07/21/2020 Pain:Denies Sleep:Denies problems FUNCTIONAL STATUS: ADL'S: Needs Assistance With:Bathing, Eating, Dressing, Toileting, Transferring and Continence Patient has care givers that come in and help her IADL'S: Needs Assistance With:Grocery Shopping, Cooking food, Routine Housework, Using telephone, Taking care of pets, Taking medications, Attending to safety and Managing money Cognitive and Mental Health: denies problems, alert and oriented x 3 and able to communicate, understand instructions, process information. MEDICATION RECONCILIATION Medications: Patient has pill pack for medications. No new medications. ASA on hold due to thrombocytopenia. Patient takes care of meds and he was sleeping at time of call. Advise patient to have call if he has any questions or concerns. Spoke to Pharmacy and they have d/c the ASA out of her pill pack. ASSESSMENT Medication Risk Assessment: PolyPharmacy Did patient fail outpatient treatment? No Discharge instructions available for review? Yes PLAN Symptom Monitoring Interventions:Member/caregiver education - signs and symptoms to contact [facility] (DO NOT DELETE-Three ervin symptoms patient is to report to PCP) 1. Chest pain 2. Sob 3. R. Great toe, redness , fever, pain, Real Estate AnalystVehicle Maintenance Supervisor of Care interventions/Action Plan: 5 - 7 day follow-up with PCP in place - Date: 07/23/2020 Educated on role of DUY completed with patient/caregiver. Educated patient/caregiver on patient right to have input on DUY plan of care. Verification of Home Health/DME if indicated: NO Identified Care Gaps: No Care Gaps closed this call: Transition of Care follow-up communication Re-evaluation of Plan of Care and progress towards goals achievement: Patient education this visit: Verbal, Meds, follow ups Plan to verbalizes understanding and agrees with plan. Rosio Hunter RN documented in this encounter Plan of Treatment Upcoming Encounters Date Type Specialty Care Team Description 0 Hem/Onc Treatment Hematology Oncology Maryellen, Chair 6 Hem On[address] Sc[address]ery [address] [place] [address] [phone] Office Visit Wound Care Prakash Honeycutt PA-C [address], [place] [address] 0 Office Visit Family Medicine Alexandra Caceres, [address] [place] [address] [phone] Office Visit Endocrinology Alberta Duque PA-C [address], [place] [address] 0 Office Visit Gastroenterology Essence Chase PA-C [address] [place] [address] [address] [phone] 0 Office Visit Pharmacy [facility] [address] [place] [address] [phone] Hem/Onc Treatment Hematology Oncology Maryellen, Chair 11 Hem Onc Sc[address] [place] [address] [phone] Hospital Encounter Surgery Janis Hatch, DO [address] [place] [address] [phone] Surgery Surgery Janis Hatch, [address] [place] [address] [phone] ESOPHAGOGASTRODUODENOSCOPY (EGD), FLEXIBLE, TRANSORAL, DIAGNOSTIC 0 Office Visit Family Medicine Alexandra Caceres, DO [address] [facility] [address] [phone] Imaging Radiology 1 Office Visit Gastroenterology Lyssa Stout CRNP [address] [place] [address] [phone] Health Maintenance Due Date Last Done Comments [...] of this encounter Implants Implanted Type Area Mill Stenciler Device Identifier Shelf Expiration Date Model / Serial / Lot Microtech Sure Clip Implanted:Qty: 2 on 06/03/2020 by Janis Hatch DO at OR H Clip N/A: Colon 04/21/2022 [facility]-F-26-2 35-C-R / / [id number] documented as of this encounter Advance Directives Documents on File Type Date Recorded Patient Apple Packing Header Expl anation Advanced Directive service a kerri [...] Agents on File Name Relationship Healthcare Agent Romainva navya Communication Syed Bustos Spouse Emergency Contact
--- OUTSIDE RECORDS SUMMARY | 2023-05-10 22:06 | External Medical Summary ---
Author Name Unknown Address [facility] [address] [facility] [place] [address] Phone Organization K01:[place] [id number] Laboratory Report Ordering Provider Test Date Status RHETT SALOMON 07/21/2020 15:52:00 Final Observation Date Value Abnormality Reference (Units ) Status Troponin T 07/21/2020 16:33 7 0-14 (ng/L) Final Performing Location [address] [address]
--- OUTSIDE RECORDS SUMMARY | 2023-05-10 22:06 | External Medical Summary ---
Author Name Unknown Address [address] [facility] [place] [address] Phone Organization K01:[facility] [address] [facility] [place] [address] Laboratory Report Ordering Provider Test Date Status RHETT SALOMON 07/21/2020 15:52:00 Final Observation Date Value Abnormality Reference (Units ) Status BUN 07/21/2020 16:33 11 6-20 (mg/dL) Final Creatinine 07/21/2020 16:33 0.7 0.5-1.0 (mg/ dL) Final E Glom Filt Rate 07/21/2020 16:33 >60.0 >60 Final Performing Location [facility] [address] [facility] [place] [address]
--- OUTSIDE RECORDS SUMMARY | 2023-05-10 22:06 | External Medical Summary ---
Author Name Unknown Address [facility] [place] [address] Phone Organization K01:[place] [id number] Laboratory Report Ordering Provider Test Date Status RHETT SALOMON 07/21/2020 15:52:00 Final Observation Date Value Abnormality Reference (Units ) Status BNP, Pro-hormone 07/21/2020 16:33 79 0-299 (pg/mL) Final Performing Location [address] [address]
--- OUTSIDE RECORDS SUMMARY | 2023-05-10 22:06 | External Medical Summary | Summary of Care ---
Author Name Unknown Organization [place] [address] Care Team Providers Care Generator Operator Straight Bevel Gear Name Role Phone Alexandra Caceres Primary Care Provider [phone] Reason for Visit * Reason Onset Date Comments Hospital Follow-Up 07/17/2020 Encounter Details Date Type Department Care Team Description 07/17/2020 Telephone Ancillary Department, [address] [address] Rosio Hunter RN Hospital Follow-Up [...] 120 Vial 11 10/02/2019 Active nystatin (NYSTOP) 334826 UNIT/GM powder Apply topically to affected area [...] SYSTM) MISC Freestyle Xochitl 2 14-day Sensor (368934) (2 sensors=28 day/1-month supply) 2 Each 1 05/26/2020 Active Additional Information Patient not taking. Informant: Pharmacy, Reported on 07/15/2020 Continuous Blood Gluc Ball Fringe Machine Operator (FREESTYLE XOCHITL 2 READER SYSTM) KORTNEY Freestyle Xochitl 2 14-day Ball Fringe Machine Operator (064324) 1 Package 0 05/26/2020 Active Additional Information [...] pain 01/24/2012 01/17/2017 Genetic Sleep Disorder Research Other*[id number] 05/13/2011 04/07/2016 Obstructive sleep apnea 01/18/2011 12/27/19 [...] or bathing? 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-assisted living executive director helps 07/15/2020 Because of a physical, [...] visit for follow up: Duy Admitted to: [facility] [place], Date: 07/14/2020 Discharged to: Home, Date: [...] R. Great toe, redness , fever, pain, Information Technology Security AnalystBelt Loop Maker of Care interventions/Action Plan: 5 - 7 [...] Chair 6 Hem Onc Scenery [address] [place] [address] [phone] Office Visit Wound Care Prakash Honeycutt PA-C [address], [place] [address] 0 Office Visit Family Medicine Alexandra Caceres, [address] [place] [address] [phone] Office Visit Endocrinology Alberta Duque PA-C [address], [place] [address] 0 Office Visit Gastroenterology Essence Chase PA-C [address] [place] [address] [phone] Office Visit Pharmacy [facility] [address] [place] [address] [phone] Hem/Onc Treatment Hematology Oncology Maryellen, Chair 11 Hem Onc Sc[address] [place] [address] [phone] Hospital Encounter Surgery Janis Hatch, DO [address] [place] [address] [phone] Surgery Surgery Janis Hatch, [address] [place] [address] [phone] ESOPHAGOGASTRODUODENOSCOPY (EGD), FLEXIBLE, TRANSORAL, DIAGNOSTIC 0 Office Visit Family Medicine Alexandra Caceres, DO [address] [facility] [place] [address] [phone] Imaging Radiology 1 Office Visit Gastroenterology Lyssa Stout CRNP [address] [place] [address] [phone] Health Maintenance Due Date Last Done Comments [...] of this encounter Implants Implanted Type Area Pamphlet Distributor Device Identifier Shelf Expiration Date Model / Serial / Lot Microtech Sure Clip Implanted:Qty: 2 on 06/03/2020 by Janis Hatch DO at OR H Clip N/A: Colon 04/21/2022 [facility]-F-26-2 35-C-R / / [id number] documented as of this encounter Advance Directives Documents on File Type Date Recorded Patient Primary Care Nurse Expl anation Advanced Directive service a [...] Agents on File Name Relationship Healthcare Agent Romainnd navya Communication Syed Bustos Spouse Emergency Contact
--- OUTSIDE RECORDS SUMMARY | 2023-05-10 22:08 | External Medical Summary | Summary of Care ---
Author Name Unknown Organization [place] [address] Care Team Providers Care Java Oracle Developer Name Role Phone Alexandra Caceres Primary Care Provider [phone] Reason for Visit * Reason Onset Date Comments Pre Cert/Prior Auth 07/14/2020 Sarah rdz Encounter Details Date Type Department Care Team Description 07/14/2020 Telephone Hematology/Oncology Treatment, [place] [address] [place] [address] Zelda Kirk CRNP [address] [place] [address] [phone] Pre Cert/Prior Auth (Sharon) Allergies Active Allergy Reactions Severity Noted Date [...] 120 Vial 11 0 Active nystatin (NYSTOP) 061053 UNIT/GM powder Apply topically to affected area [...] SYSTM) MISC Freestyle Xochitl 2 14-day Sensor (782964) (2 sensors=28 day/1-month supply) 2 Each 1 0 Active Additional Information Patient not taking. Informant: Pharmacy, Reported on 07/15/2020 Continuous Blood Gluc Corporate Intern (FREESTYLE XOCHITL 2 READER SYSTM) KORTNEY Freestyle Xochitl 2 14-day Corporate Intern (012617) 1 Package 0 0 Active Additional Information [...] weeks 600 mL 0 0 07/15/20 20 Discontinued([facility] [employer] List Clean Up) SM Aspirin Adult Low Strength 81 MG Oral Tablet Delayed Release (aspirin enteric coated) TAKE 1 TABLET BY MOUTH ONCE DAILY 90 Tab 1 0 07/16/20 20 Discontinued documented as of this encounter [...] pain 01/24/2012 01/17/2017 Genetic Sleep Disorder Research Other*[id number] 05/13/2011 04/07/2016 Obstructive sleep apnea 01/18/2011 12/27/19 [...] No 07/04/2020 documented as of this encounter Miscellaneous Notes * Telephone Encounter - Janett Triana OSA - 07/17/2020 8:39 AM EST Called and spoke to patient and she is scheduled to start Venofer on 07-20-20. * Telephone Encounter - Cassie Barboza RN - 07/17/2020 8:15 AM EST Scheduling: please contact patient to schedule 2 hour appt on 503 schedule "venofer 09/12" (Yelena). Thanks! Patient will need a 2nd appt 2 weeks later if she wants to schedule both when you speak to her. * Telephone Encounter - Connie Marvin OSA - 07/16/2020 2:31 PM EST Pat has current auth/ref for this med. * Telephone Encounter - Cassie Barboza RN - 07/14/2020 1:20 PM EST ICD-10: D50.0 Start date: within 1 week Drugs: venofer Physician: Zelda Kirk NP documented in this encounter Plan of Treatment Upcoming Encounters Date Type Specialty Care Team Description 0 Hem/Onc Treatment Hematology Oncology [place], Chair 6 Hem Onc Scenery [address] [place] [address] [phone] Office Visit Wound Care Prakash Honeycutt PA-C [address] [place] [address] [phone] Office Visit Family Medicine Alexandra Caceres, [address] [place] [address] [phone] Office Visit Endocrinology Alberta Duque PA-C [address] [place], [place] [address] 0 Office Visit Gastroenterology Essence Chase PA-C [address] [facility] [place] [address] [phone] Office Visit Pharmacy [facility] [address] [place] [address] [phone] Hem/Onc Treatment Hematology Oncology Maryellen, Chair 11 Hem On[address] [place] [address] [phone] Hospital Encounter Surgery Janis Hatch, [address] [place] [address] [phone] Surgery Surgery Janis Hatch, DO [address] [place] [address] [phone] ESOPHAGOGASTRODUODENOSCOPY (EGD), FLEXIBLE, TRANSORAL, DIAGNOSTIC 0 Office Visit Family Medicine Alexandra Caceres DO [address] [facility] [address] 0 Imaging Radiology 1 Office Visit Gastroenterology Lyssa Stout, ZAK [address] [facility] [place] [address] [phone] Health Maintenance Due Date Last Done Comments [...] of this encounter Implants Implanted Type Area Aeronautical Inspector Device Identifier Shelf Expiration Date Model / Serial / Lot Microtech Sure Clip Implanted:Qty: 2 on 06/03/2020 by Janis Hatch DO at OR H Clip N/A: Colon 04/21/2022 [facility]-F-26-2 35-C-R / / [id number] documented as of this encounter Advance Directives Documents on File Type Date Recorded Patient Mother Repairer Expl anation Advanced Directive service a [...] Agents on File Name Relationship Healthcare Agent [facility] Communication Syed Bustos Spouse Emergency Contact
--- OUTSIDE RECORDS SUMMARY | 2023-05-10 22:08 | External Medical Summary | Summary of Care ---
Author Name Unknown Organization [place] [address] Care Team Providers Care Take Out Waiter Name Role Phone CarlosjosefaAlexandra fernandez Primary Care Provider [phone] Reason for Visit * Reason Comments Follow Up 6m Encounter Details Date Type Department Care Team Description 07/13/2020 Office Visit Hematology/Oncology [facility] [address] [place] [address] Zelda Kirk CRNP [address] [place], [place] [address] Iron deficiency anemia due to chronic blood [...] 120 Vial 11 0 Active nystatin (NYSTOP) 087242 UNIT/GM powder Apply topically to affected area [...] SYSTM) MISC Freestyle Xochitl 2 14-day Sensor (935740) (2 sensors=28 day/1-month supply) 2 Each 1 0 Active Additional Information Patient not taking. Informant: Pharmacy, Reported on 07/15/2020 Continuous Blood Gluc Upholstery Covers Inspector (FREESTYLE XOCHITL 2 READER SYSTM) KORTNEY Freestyle Xochitl 2 14-day Upholstery Covers Inspector (006700) 1 Package 0 0 Active Additional Information [...] 600 mL 0 0 07/15/20 20 Discontinued(Med Backflip Studiostion List Clean Up) SM Aspirin Adult Low [...] pain 01/24/2012 01/17/2017 Genetic Sleep Disorder Research Other*[id number] 05/13/2011 04/07/2016 Obstructive sleep apnea 01/18/2011 12/27/19 [...] 2:30 PM EST Hematology/Oncology Outpatient Clinic note [facility] [address] Name: Ryland Shwa Date: 07/13/2020 CHIEF COMPLAINT: Ryland Shaw is a 65 year old female patient of Dr. Sanchez here today for f/u visit. DIAGNOSIS: -pancytopenia related to underlying cirrhosis of liver and splenomegaly -iron deficiency anemia. DIAGNOSTIC WORKUP: She is referred to hematology for evaluation of the anemia, I I reviewed her medical records, also reviewed her medical records from [facility]. She has underlying cirrhosis of liver, has evidence of iron deficiency for the last 1 year, Ferritin level was less than 10 earlier in December 2018, she was on oral iron replacement therapy once a day,lately increase to twice a day. She was admitted at [facility] in November 2019, she received 1 [...] and activity intolerance. Her is her primary residential direct support professional. 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 49 education: 12 service: no hobbies/interests: reading transfusions: no exercise: no diet: no congregational/pentecostal: Raised jain marital status: 2nd time 3/07 children: 1 [...] performed by Josh Vazquez MD at OR [facility] DELIVERY 04/20/1982 COLONOSCOPY 04/21/2009 repeat in 10 years COLONOSCOPY, DIAGNOSTIC (RECTUM) 10/04/2016 normal bx, repeat 10 yrs/[facility] COLONOSCOPY, DIAGNOSTIC (RECTUM) N/A 06/03/2020 internal hemorrhoids/biopsies show adenomatous polyps/recall 5 years/COLONOSCOPY FLEXIBLE PROXIMAL DIAGNOSTIC performed by Janis Hatch DO at OR [facility] DENTAL SURGERY PROCEDURE NEC wisdom teeth x 4 DILATION AND CURETTAGE (D&C) EGD, FLEXIBLE, DIAGNOSTIC 10/04/2016 gastritis/[facility] EGD, FLEXIBLE, DIAGNOSTIC 01/11/2018 eso varices, retained food, repeat 1 yr/[facility] EGD, FLEXIBLE, DIAGNOSTIC N/A 06/03/2020 severe erosive esophagitis/non-bleeding grade II esophageal varices/gastritis/biopsies show inflammatory changes/repeat 3-4 months/ESOPHAGOGASTRODUODENOSCOPY (EGD), FLEXIBLE, TRANSORAL, DIAGNOSTIC per formed by Janis Hatch DO at OR [facility] PELVIS/HIP JOINT SURGERY NEC teenager aid [...] bedtime. 34 Tab 0 Continuous Blood Gluc Upholstery Covers Inspector (FREESTYLE XOCHITL 2 READER SYSTM) KORTNEY Freestyle Xochitl 2 14-day Upholstery Covers Inspector (785152) 1 Package 0 Continuous Blood Gluc Sensor (FREESTYLE XOCHITL 2 SENSOR SYSTM) MISC Freestyle Xochitl 2 14-day Sensor (267528) (2 sensors=28 day/1-month supply) 2 Each 1 [...] With spacer 16 g 1 nystatin (NYSTOP) 349886 UNIT/GM powder Apply topically to affected area [...] EGD with gastroenterology on 07/31/20 -Hospitalization at [facility] 07/04/20-07/07/20 -Per DC summary: During this admission, [...] Chair 6 Hem Onc Scenery [address] [place] [address] 0 Office Visit Wound Care Prakash Honeycutt PA-C [address] [place] [address] [phone] Office Visit Family Medicine Alexandra Caceres, DO [address] [place] [address] [phone] Office Visit Endocrinology Alberta Duque PA-C [address], [place] [address] 0 Office Visit Gastroenterology Essence Chase PA-C [address] [place] [address] [phone] Office Visit Pharmacy [facility] [address] [place], [place] [address] 0 Hem/Onc Treatment Hematology Oncology [place], Chair 11 Hem Onc Sc[address]ery [address] [facility] [address] [phone] Hospital Encounter Surgery Janis Hatch, DO [address] [facility] [address] [phone] Surgery Surgery [facility]is Hatch, DO [facility] [place] [address] [phone] ESOPHAGOGASTRODUODENOSCOPY (EGD), FLEXIBLE, TRANSORAL, DIAGNOSTIC 0 Office Visit Family Medicine Alexandra Caceres, DO [address], [place] [address] 0 Imaging Radiology 1 Office Visit Gastroenterology Lyssa Stout CRNP [address] [facility] [address] [phone] Health Maintenance Due Date Last Done Comments [...] of this encounter Implants Implanted Type Area Sterile Preparation Technician Device Identifier Shelf Expiration Date Model / Serial / Lot Microtech Sure Clip Implanted:Qty: 2 on 06/03/2020 by Janis Hatch DO at OR [facility] Clip N/A: Colon 04/21/2022 [facility]-F-26-2 35-C-R / / [id number] documented as of this encounter Visit Diagnoses [...] on File Type Date Recorded Patient Elevator Constructor Electric Expl anation Advanced Directive service a kerri [...] Name Relationship Healthcare Agent [facility] p Communication Syed Shaw Spouse Emergency Contact
--- OUTSIDE RECORDS SUMMARY | 2023-05-10 22:08 | External Medical Summary | Summary of Care ---
Author Name Unknown Organization [place] [address] Care Team Providers Care Business Area Director Name Role Phone Alexandra Caceres Primary Care Provider [phone] Reason for Visit * Reason Onset Date Comments Pre Cert/Prior Auth 07/14/2020 Sarah rdz Encounter Details Date Type Department Care Team Description 07/14/2020 Telephone Hematology/Oncology Treatment, [facility] [address] [place] [address] Zelda Kirk CRNP [address] [place] [address] [phone] Pre Cert/Prior Auth (Sharon) Allergies Active Allergy [...] 120 Vial 11 0 Active nystatin (NYSTOP) 499939 UNIT/GM powder Apply topically to affected area [...] SYSTM) MISC Freestyle Xochitl 2 14-day Sensor (915183) (2 sensors=28 day/1-month supply) 2 Each 1 0 Active Additional Information Patient not taking. Informant: Pharmacy, Reported on 07/15/2020 Continuous Blood Gluc Stripping Machine Operator (FREESTYLE XOCHITL 2 READER SYSTM) KORTNEY Freestyle Xochitl 2 14-day Stripping Machine Operator (879461) 1 Package 0 0 Active Additional Information [...] weeks 600 mL 0 0 07/15/20 20 [facility]) SM Aspirin Adult Low [...] pain 01/24/2012 01/17/2017 Genetic Sleep Disorder Research Other*[id number] 05/13/2011 04/07/2016 Obstructive sleep apnea 01/18/2011 12/27/19 [...] schedule 2 hour appt on 503 schedule "salomón 09/12" (Yelena). Thanks! Patient will need a 2nd appt 2 weeks later if she wants to schedule both when you speak to her. * Telephone Encounter - Connie Marvin OSA - 07/16/2020 2:31 PM EST Pat has current auth/ref for this med. * Telephone Encounter - Cassie Barboza RN - 07/14/2020 1:20 PM EST ICD-10: D50.0 Start date: within 1 week Drugs: salomón Physician: Zelda Kirk NP documented in this encounter Plan of Treatment Upcoming Encounters Date Type Specialty Care Team Description 0 Office Visit Wound Care Prakash Honeycutt PA-C [address] [place], [place] [id number] 0 Office Visit Family Medicine Alexandra Caceres, DO [address] [place] [address] [phone] Office Visit Endocrinology Alberta Duque PA-C [address] [place], [place] [id number] 0 Office Visit Gastroenterology Essence Chase PA-C [address] [facility] [address] [phone] Office Visit Pharmacy [facility] [address] [place], [place] [id number] 0 Hospital Encounter Surgery Janis Hatch, DO [address] [facility] [place] [address] [phone] Surgery Surgery Janis Hatch, DO [address] [facility] [place] [address] [phone] ESOPHAGOGASTRODUODENOSCOPY (EGD), FLEXIBLE, TRANSORAL, DIAGNOSTIC 0 Office Visit Family Medicine Alexandra Caceres, DO [address] [place] [address] [phone] Imaging Radiology 1 Office Visit Gastroenterology Lyssa Stout CRNP [address] [facility] [place] [address] [phone] Health Maintenance Due Date Last Done Comments [...] this encounter Implants Implanted Type Area City Planning Teacher Device Identifier Shelf Expiration Date Model / Serial / Lot Microtech Sure Clip Implanted:Qty: 2 on 06/03/2020 by Janis Hatch DO at OR [facility] Clip N/A: Colon 04/21/2022 [facility]-F-26-2 35-C-R / / [id number] documented as of this encounter Advance Directives Documents on File Type Date Recorded Patient Letter Of Credit Document Examiner Expl anation Advanced Directive service a kerri [...]
--- OUTSIDE RECORDS SUMMARY | 2023-05-10 22:08 | External Medical Summary | Summary of Care ---
Author Name Unknown Organization [place] [address] Care Team Providers Care Cashier Credit Name Role Phone CarlosjosefaAlexandra fernandez Primary Care Provider [phone] Reason for Visit * Reason Comments Follow Up 6m Encounter Details Date Type Department Care Team Description 07/13/2020 Office Visit Hematology/Oncology [facility] [address] [place] [address] Zelda Kirk CRNP [address] [place], [place] [id number] Iron deficiency anemia due to chronic blood loss*; NG (nonalcoholic steatohepatitis); Pancytopenia (HCC); Splenomegaly; Esophageal varices without bleeding, unspecified esophageal varices type (HCC) Allergies Active Allergy Reactions Severity Noted Date Comments Adhesive Tape Itching 04/29/2020 Penicillins Rash 02/12/2008 Perflutren Protein A Microsph 2019 Definity-lower back pain documented as of this encounter (statuses as of 07/16/2020) Medications Medication Sig Dispensed Refills Start Date [...] 120 Vial 11 0 Active nystatin (NYSTOP) 539888 UNIT/GM powder Apply topically to affected area [...] SYSTM) MISC Freestyle Xochitl 2 14-day Sensor (435555) (2 sensors=28 day/1-month supply) 2 Each 1 0 Active Additional Information Patient not taking. Informant: Pharmacy, Reported on 07/15/2020 Continuous Blood Gluc Railroad Cook (FREESTYLE XOCHITL 2 READER SYSTM) KORTNEY Freestyle Xochitl 2 14-day Railroad Cook (913935) 1 Package 0 0 Active Additional Information [...] 600 mL 0 0 07/15/20 20 Discontinued(Med myRet[employer]ion List Clean Up) SM Aspirin Adult Low [...] as of this encounter (statuses as of 07/16/2020) Active Problems Problem Noted Date Uncontrolled type [...] as of this encounter (statuses as of 07/16/2020) Resolved Problems Problem Noted Date Resolved Date [...] pain 01/24/2012 01/17/2017 Genetic Sleep Disorder Research Other*[id number] 05/13/2011 04/07/2016 Obstructive sleep apnea 01/18/2011 12/27/19 [...] as of this encounter (statuses as of 07/16/2020) Immunizations Name Administration Dates Next Due HEP [...] 2:30 PM EST Hematology/Oncology Outpatient Clinic note [facility] [address] Name: Ryland Shaw Date: 07/13/2020 CHIEF COMPLAINT: Ryland Shaw is a 65 year old female patient of Dr. Sanchez here today for f/u visit. DIAGNOSIS: -pancytopenia related to underlying cirrhosis of liver and splenomegaly -iron deficiency anemia. DIAGNOSTIC WORKUP: She is referred to hematology for evaluation of the anemia, I I reviewed her medical records, also reviewed her medical records from [facility]. She has underlying cirrhosis of liver, has evidence of iron deficiency for the last 1 year, Ferritin level was less than 10 earlier in December 2018, she was on oral iron replacement therapy once a day,lately increase to twice a day. She was admitted at [facility] in November 2019, she received 1 [...] and activity intolerance. Her is her primary drafter (cad) electrical. 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49 education: 12 service: no hobbies/interests: reading transfusions: no exercise: no diet: no taoist/amish: Raised rastafari marital status: 2nd time 3/07 children: 1 [...] by Josh Vazquez MD at OR [facility] DELIVERY 04/20/1982 COLONOSCOPY 04/21/2009 repeat in 10 years COLONOSCOPY, DIAGNOSTIC (RECTUM) 10/04/2016 normal bx, repeat 10 yrs/[facility] COLONOSCOPY, DIAGNOSTIC (RECTUM) N/A 06/03/2020 internal hemorrhoids/biopsies show adenomatous polyps/recall 5 years/COLONOSCOPY FLEXIBLE PROXIMAL DIAGNOSTIC performed by Janis Hatch DO at OR [facility] DENTAL SURGERY PROCEDURE NEC wisdom [...] Hatch DO at OR [facility] PELVIS/HIP JOINT SURGERY NEC teenager aid in walking REPAIR/GRAFT ACHILLES TENDON age 40 aid in walking Family History Problem Relation Age of Onset Heart Disorder Father of IA at age 61 Diabetes Father Heart Disorder Mother of [place] age 72 Cancer None Arthritis None Stroke [...] bedtime. 34 Tab 0 Continuous Blood Gluc Railroad Cook (FREESTYLE XOCHITL 2 READER SYSTM) KORTNEY Freestyle Xochitl 2 14-day Railroad Cook (909279) 1 Package 0 Continuous Blood Gluc Sensor (FREESTYLE XOCHITL 2 SENSOR SYSTM) MISC Freestyle Xochitl 2 14-day Sensor (092453) (2 sensors=28 day/1-month supply) 2 Each 1 [...] With spacer 16 g 1 nystatin (NYSTOP) 113688 UNIT/GM powder Apply topically to affected area [...] EGD with gastroenterology on 07/31/20 -Hospitalization at [facility] 07/04/20-07/07/20 -Per DC summary: During this admission, [...] in Room 5 documented in this encounter Plan of Treatment Upcoming Encounters Date Type Specialty Care Team Description 0 Office Visit Wound Care Prakash Honeycutt PA-C [address] [place], [place] [phone] 0 Office Visit Family Medicine Alexandra Caceres, [place] [address] 0 Office Visit Endocrinology Alberta Duque PA-C [address] [place], [place] [address] 0 Office Visit Gastroenterology Essence Chase PA-C [address] [facility] [place] [address] [phone] 0 [facility] [address] [facility] [address] [phone] Hospital Encounter Surgery Janis Hatch, DO [address] [facility] [place] [address] [phone] Surgery Surgery Janis Hatch, DO [address] [facility] [place] [address] [phone] ESOPHAGOGASTRODUODENOSCOPY (EGD), FLEXIBLE, TRANSORAL, DIAGNOSTIC 0 Office Visit Family Medicine Alexandra Caceres, [address] [facility] [address] [phone] Imaging Radiology 1 Office Visit Gastroenterology Lyssa Stout CRNP [address] [facility] [place] [address] [phone] Health Maintenance Due Date Last Done Comments [...] of this encounter Implants Implanted Type Area Imposer Device Identifier Shelf Expiration Date Model / Serial / Lot Microtech Sure Clip Implanted:Qty: 2 on 06/03/2020 by Janis Hatch DO at OR [facility] Clip N/A: Colon 04/21/2022 [facility]-F-26-2 35-C-R / / [id number] documented as of this encounter Visit Diagnoses [...] on File Type Date Recorded Patient Business Developer Expl anation Advanced Directive service a [...] Inactivated Comments Full Code 07/15/2020 12:21 AM This orde r reflects the patients wishes [...] Agent [facility] p Communication Syed Shaw Spouse Emergency Contact [phone] (Mobile)
--- OUTSIDE RECORDS SUMMARY | 2023-05-10 22:09 | External Medical Summary ---
Author Name Unknown Address [facility] [address] [facility] [place] [address] Phone Organization K01:[place] [address] [address] [facility] [place] [address] Laboratory Report Ordering Provider Test Date Status SUMAN,HO 07/16/2020 12:11:00 Final Observation Date Value Abnormality Reference (Units ) Status WBC, Total 07/16/2020 13:55 2.45 Below low normal 4.00- 10.80 (K/uL) Final RBC 07/16/2020 13:55 2.77 Below low normal 3.85-5 .15 (M/uL) Final Hemoglobin 07/16/2020 13:55 7.7 Below low normal 12.0- 15.3 (g/dL) Final HCT 07/16/2020 13:55 25.6 Below low normal 36.0-4 5.2 (%) Final MCV 07/16/2020 13:55 92.4 81.5-97.5 (fL ) Final MCH 07/16/2020 13:55 27.8 27.0-34.0 (pg ) Final MCHC 07/16/2020 13:55 30.1 Below low normal 32.0-3 6.0 (g/dL) Final RDW 07/16/2020 13:55 20.4 Above high normal 11.5- 15.5 (%) Final Platelets 07/16/2020 13:55 61 Below low normal 140-40 0 (K/uL) Final Performing Location [address] [address]
--- OUTSIDE RECORDS SUMMARY | 2023-05-10 22:09 | External Medical Summary ---
Author Name Unknown Address Unknown Organization R:IT USE ONLY!!! Laboratory Report Ordering Provider Test Date Status MARISABEL REAVES 07/15/2020 21:56:00 Final Observation Date Value Abnormality Reference (Units ) Status Glucose Point of Care 07/15/2020 22:08 137 Above high normal 70-120 (mg/dL) Final Performing Location IT USE ONLY!!!
--- OUTSIDE RECORDS SUMMARY | 2023-05-10 22:09 | External Medical Summary ---
Author Name Unknown Address [place] [address] Phone Organization K01:[place] [id number] Laboratory Report Ordering Provider Test Date Status MERRY OVIEDO 07/16/2020 04:46:00 Final Observation Date Value Abnormality Reference (Units ) Status BUN 07/16/2020 05:45 10 6-20 (mg/dL) Final Creatinine 07/16/2020 05:45 0.7 0.5-1.0 (mg/ dL) Final E Glom Filt Rate 07/16/2020 05:45 >60.0 >60 Final Performing Location [address] [address]
--- OUTSIDE RECORDS SUMMARY | 2023-05-10 22:09 | External Medical Summary | Summary of Care ---
Author Name Unknown Organization [place] [address] Care Team Providers Care Building Maintenance Mechanic Name Role Phone Alexandra Caceres Primary Care Provider Reason for Visit * Reason Onset Date Comments Pre Cert/Prior Auth 07/14/2020 Sarah rdz Encounter Details Date Type Department Care Team Description 07/14/2020 Telephone Hematology/Oncology Treatment, [place] [address] [place] [address] Zelda Kirk CRNP [address] [place] [address] [phone] Pre Cert/Prior Auth (Sharon) Allergies Active Allergy Reactions Severity Noted Date Comments Adhesive Tape Itching 04/29/2020 Penicillins Rash 02/12/2008 Perflutren Protein A Microsph 2019 Definity-lower back pain documented as of this encounter (statuses as of 07/16/2020) Medications Medication Sig Dispensed Refills Start Date End Date Status CENTRUM SILVER PO TABS Take 1 Tab by mouth daily. 1 Tab 0 2 Suspended vitamin c (ASCORBIC ACID) 500 MG Tablet Take 500 mg by mouth daily. 0 Suspended fluticasone (FLONASE) 50 MCG/ACT nasal sprayIndications: Sinus congestion INSTILL 2 SPRAYS INTO EACH NOSTRIL DAILY DIRECTED 16 g 5 9 Suspended Additional Information albuterol sulfate (PROVENTIL) (2.5 MG/3ML) 0.083% nebulizer solutionIndicatio ns:Pulmonary vascular congestion Inhale 1 Vial via nebulizer every 6 hours as needed for Wheezing. 120 Vial 11 0 Suspended Additional Information nystatin (NYSTOP) 139496 UNIT/GM powder Apply topically to affected area 3 times a day. 60 g 1 0 Suspended Additional Information Albuterol Sulfate (ALBUTEROL HFA) 108 (90 BASE) MCG/ACT inhalerIndication s:Intermittent asthma with reliever use up to twice per week without complication Inhale 2 Puffs by mouth every 4 hours as needed for Cough or Wheezing. With spacer 16 g 1 0 Suspended Additional Information Blood Glucose Monitoring Suppl (BLOOD GLUCOSE MONITOR SYSTEM) w/Device KIT Use to test once per day. 1 Kit 0 0 Suspended Additional Information Patient not taking. Informant: Pharmacy, Reported on 07/15/2020 Glucose Blood (BLOOD GLUCOSE TEST) STRP Use to test once per day. 100 Strip 3 0 Suspended Additional Information Lancets MISC Use to test once per day. 100 Each 3 0 Suspended Additional Information atorvaSTATin (LIPITOR) 40 MG TabletIndications :Dyslipidemia, goal LDL below 70 TAKE 1 TABLET BY MOUTH EVERY NIGHT AT BEDTIME 90 Tab 1 0 07/16/20 20 Discontinued furosemide (LASIX) 20 MG TabletIndications :Localized edema,Venous stasis dermatitis of both lower extremities TAKE 1 TABLET BY MOUTH ONCE DAILY NEEDED FOR EDEMA 30 Tab 5 0 07/16/20 20 Discontinued levothyroxine (LEVOXYL) 200 MCG Tablet Take 1 Tab by mouth daily. 90 Tab 3 0 Suspended Additional Information oxybutynin (DITROPAN) 5 MG Tablet TAKE 1 TABLET BY MOUTH TWICE DAILY 60 Tab 5 0 Suspended Additional Information tamsulosin (FLOMAX) 0.4 MG Capsule TAKE 1 CAPSULE BY MOUTH ONCE DAILY 90 Cap 1 0 Suspended Additional Information linaCLOtide (LINZESS) 290 MCG Capsule Take 1 Cap by mouth daily before breakfast. 90 Cap 3 0 Suspended Additional Information nadolol (CORGARD) 20 MG Tablet TAKE 2 TABLETS BY MOUTH ONCE DAILY 180 Tab 1 0 Suspended Additional Information cyclobenzaprine (FLEXERIL) 10 MG Tablet TAKE 1 TABLET ONCE DAILY AT BEDTIME 30 Tab 2 0 Suspended Additional Information escitalopram (LEXAPRO) 20 MG TabletIndications :Recurrent major depressive disorder, in partial remission (HCC) TAKE 1 TABLET BY MOUTH ONCE DAILY 90 Tab 1 0 Suspended Additional Information gabapentin (NEURONTIN) 300 MG Capsule TAKE 1 CAPSULE BY MOUTH IN THE MORNING, 1 CAPSULE MIDDAY, AND 2 CAPSULES IN THE EVENING 180 Cap 2 0 Suspended Additional Information traZODone (DESYREL) 50 MG TabletIndications :Sleep disturbances TAKE 1 TABLET BY MOUTH AT BEDTIME 90 Tab 1 0 Suspended Additional Information potassium chloride ER 10 MEQ TBCRIndications:H ypokalemia TAKE 1 TABLET BY MOUTH ONCE DAILY WITH FOOD 90 Tab 3 0 Suspended Additional Information silver sulfadiazine (SILVADENE) 1 % cream Apply topically to affected area daily. Apply to right great toe 50 g 0 0 Suspended Additional Information Continuous Blood Gluc Sensor (FREESTYLE XOCHITL 2 SENSOR SYSTM) MISC Freestyle Xochitl 2 14-day Sensor (506835) (2 sensors=28 day/1-month supply) 2 Each 1 0 Suspended Additional Information Patient not taking. Informant: Pharmacy, Reported on 07/15/2020 Continuous Blood Gluc Edge Stitcher (FREESTYLE XOCHITL 2 READER SYSTM) KORTNEY Freestyle Xochitl 2 14-day Edge Stitcher (395714) 1 Package 0 0 Suspended Additional Information Patient not taking. Informant: Pharmacy, Reported on 07/15/2020 famotidine (PEPCID) 20 MG Tablet Take 1 Tab by mouth every night at bedtime. 34 Tab 0 0 Suspended Additional Information Sucralfate 1 GM/10ML Oral Suspension (Carafate) Take 10 mL by mouth 2 times a day. Use twice daily for 4 weeks 600 mL 0 0 07/15/20 20 Discontinued([facility]) Trulicity 1.5 MG/0.5ML Subcutaneous Solution Pen-injector (Dulaglutide)Connie cations:Type 2 diabetes mellitus with hemoglobin A1c goal of less than 7.0% ([facility]) Inject 1.5mg (one pen) under the skin once weekly 6 mL 3 0 Suspended Additional Information SM Aspirin Adult Low Strength 81 MG Oral Tablet Delayed Release (aspirin enteric coated) TAKE 1 TABLET BY MOUTH ONCE DAILY 90 Tab 1 0 07/16/20 20 Discontinued Lantus SoloStar 100 UNIT/ML Subcutaneous Solution Pen-injector (insulin glargine)Indicati ons:Type 2 diabetes mellitus with hemoglobin A1c goal of less than 7.0% (HCC) Inject 30 units under the skin once a day 30 mL 3 0 Suspended Additional Information BD Pen Needle Mini U/F 31G X 5 MM (Insulin Pen Needle)Indication s:Type 2 diabetes mellitus with hemoglobin A1c goal of less than 7.0% (HCC) Use to inject insulin four times daily; E11.42 400 Each 3 0 Suspended Additional Information Insulin Aspart 100 UNIT/ML Subcutaneous Solution (NovoLOG) Inject 26 units under the skin before breakfast, 26 units before lunch, and 30 units before supper 60 mL 3 0 Suspended Additional Information Pantoprazole Sodium 20 MG Oral Tablet Delayed Release (PROTONIX)Indicat ions:NAFLD (nonalcoholic fatty liver disease),Other cirrhosis of liver (HCC) Take 2 Tabs by mouth 2 times a day. 180 Tab 1 0 Suspended Additional Information documented as of this [...] pain 01/24/2012 01/17/2017 Genetic Sleep Disorder Research Other*[id number] 05/13/2011 04/07/2016 Obstructive sleep apnea 01/18/2011 12/27/19 [...] Miscellaneous Notes * Telephone Encounter - Connie Marvin OSA [...] Wound Care Prakash Honeycutt PA-C [address] [place] [address] 0 Office Visit Family Medicine Alexandra Caceres DO [address] [place] [address] [phone] Office Visit Endocrinology Alberta Duque PA-C [address] [facility] [place] [id number] 0 Office Visit Gastroenterology Essence Chase PA-C [address] [place] [address] [phone] Office Visit Pharmacy [facility] [address] [place], [place] [address] 0 Hospital Encounter Surgery Janis Hatch, DO [address] [facility] [address] [phone] Surgery Surgery Janis Hatch, DO [address] [facility] [place] [address] [phone] ESOPHAGOGASTRODUODENOSCOPY (EGD), FLEXIBLE, TRANSORAL, DIAGNOSTIC 0 Office Visit Family Medicine Alexandra Caceres, DO [address] [place] [address] [phone] Imaging Radiology 1 Office Visit Gastroenterology Lyssa Stout CRNP [address] [facility] [place] [address] [phone] Health Maintenance Due Date Last Done Comments [...] of this encounter Implants Implanted Type Area Tobacco Weigher Device Identifier Shelf Expiration Date Model / Serial / Lot Microtech Sure Clip Implanted:Qty: 2 on 06/03/2020 by Janis Hatch DO at OR [facility] Clip N/A: Colon 04/21/2022 [facility]-F-26-2 35-C-R / / [id number] documented as of this encounter Advance Directives Documents on File Type Date Recorded Patient Vending Machine Refiller Expl anation Advanced Directive service a kerri [...]
--- OUTSIDE RECORDS SUMMARY | 2023-05-10 22:09 | External Medical Summary ---
Author Name Unknown Address [address] [place], [place] [address] Phone Organization K01:[place] [id number] Laboratory Report Ordering Provider Test Date Status IVELISSEMERRY COX 07/16/2020 04:46:00 Final Observation Date Value Abnormality Reference (Units ) Status WBC, Total 07/16/2020 06:07 2.02 Below low normal 4.00- 10.80 (K/uL) Final RBC 07/16/2020 06:07 2.50 Below low normal 3.85-5 .15 (M/uL) Final Hemoglobin 07/16/2020 06:07 6.8 Below lower panic limi ts 12.0-15.3 (g/dL) Final Performing Location [place] [id number]
--- OUTSIDE RECORDS SUMMARY | 2023-05-10 22:09 | External Medical Summary ---
Author Name Unknown Address Unknown Organization R:IT USE ONLY!!! Laboratory Report Ordering Provider Test Date Status MARISABEL REAVES 07/15/2020 17:10:00 Final Observation Date Value Abnormality Reference (Units ) Status Glucose Point of Care 07/15/2020 17:14 141 Above high normal 70-120 (mg/dL) Final Performing Location IT USE ONLY!!!
--- OUTSIDE RECORDS SUMMARY | 2023-05-10 22:09 | External Medical Summary ---
Author Name Unknown Address [facility] [place] [address] Phone Organization K01:[place] [id number] Laboratory Report Ordering Provider Test Date Status IVELISSEAMARIS COXMA 07/16/2020 04:46:00 Final Observation Date Value Abnormality Reference (Units ) Status Phosphate 07/16/2020 05:45 3.6 2.5-4.8 (mg/d L) Final Performing Location [address] [address]
--- OUTSIDE RECORDS SUMMARY | 2023-05-10 22:09 | External Medical Summary | Summary of Care ---
Author Name Unknown Organization [place] [address] Care Team Providers Care Manager Diabetes Name Role Phone NikMaikel fernandez Primary Care Provider Reason for Visit * Reason Comments eRx-Medication Refill Encounter Details Date Type Department Care Team Description 07/15/2020 Refill [place] [address], [place] [id number] Rajwinder Carter [address] [place] [address] [phone] Localized edema; Venous stasis dermatitis of both lower extremities; Dyslipidemia, goal LDL below 70 Allergies Active Allergy Reactions Severity Noted Date Comments Adhesive Tape Itching 04/29/2020 Penicillins Rash 02/12/2008 Perflutren Protein A Microsph 2019 Definity-lower back pain documented as of this encounter (statuses as of 07/16/2020) Medications Medication Sig Dispensed Refills Start Date End Date Status Furosemide 20 MG Oral Tablet (LASIX)Indication s:Localized edema,Venous stasis dermatitis of both lower extremities TAKE 1 TABLET BY MOUTH once DAilY NEEDED for edema 90 Tab 1 07/16/2020 Active Atorvastatin Calcium 40 MG Oral Tablet (LIPITOR)Indicati ons:Dyslipidemia, goal LDL below 70 TAKE 1 TABLET BY MOUTH AT BEDTIME 90 Tab 1 07/16/2020 Active CENTRUM SILVER PO TABS Take 1 Tab by mouth daily. 1 Tab 0 05/25/2012 Suspended vitamin c (ASCORBIC ACID) 500 MG Tablet Take 500 mg by mouth daily. 0 Suspended fluticasone (FLONASE) 50 MCG/ACT nasal sprayIndications: Sinus congestion INSTILL 2 SPRAYS INTO EACH NOSTRIL DAILY DIRECTED 16 g 5 08/01/2019 Suspended Additional Information albuterol sulfate (PROVENTIL) (2.5 MG/3ML) 0.083% nebulizer solutionIndicatio ns:Pulmonary vascular congestion Inhale 1 Vial via nebulizer every 6 hours as needed for Wheezing. 120 Vial 11 10/02/2019 Suspended Additional Information nystatin (NYSTOP) 397221 UNIT/GM powder Apply topically to affected area [...] 1 Kit 0 11/19/2019 Suspended Additional Information Patient not taking. Informant: Pharmacy, Reported on 07/15/2020 Glucose Blood (BLOOD GLUCOSE TEST) STRP Use to test once per day. 100 Strip 3 11/19/2019 Suspended Additional Information Lancets MISC Use to test once per day. 100 Each 3 11/19/2019 Suspended Additional Information atorvaSTATin (LIPITOR) 40 MG TabletIndications :Dyslipidemia, goal LDL below 70 TAKE 1 TABLET BY MOUTH EVERY NIGHT AT BEDTIME 90 Tab 1 12/30/2019 0 Discontinued furosemide (LASIX) 20 MG TabletIndications :Localized edema,Venous stasis dermatitis of both lower extremities TAKE 1 TABLET BY MOUTH ONCE DAILY NEEDED FOR EDEMA 30 Tab 5 01/28/2020 0 Discontinued levothyroxine (LEVOXYL) 200 MCG Tablet Take 1 Tab by mouth daily. 90 Tab 3 02/20/2020 Suspended Additional Information oxybutynin (DITROPAN) 5 MG Tablet TAKE 1 TABLET BY MOUTH TWICE DAILY 60 Tab 5 03/27/2020 Suspended Additional Information tamsulosin (FLOMAX) 0.4 MG Capsule TAKE 1 CAPSULE BY MOUTH ONCE DAILY 90 Cap 1 04/22/2020 Suspended Additional Information linaCLOtide (LINZESS) 290 MCG Capsule Take 1 Cap by mouth daily before breakfast. 90 Cap 3 05/04/2020 Suspended Additional Information nadolol (CORGARD) 20 MG Tablet TAKE 2 TABLETS BY MOUTH ONCE DAILY 180 Tab 1 05/12/2020 Suspended Additional Information cyclobenzaprine (FLEXERIL) 10 MG Tablet TAKE 1 TABLET ONCE DAILY AT BEDTIME 30 Tab 2 05/21/2020 Suspended Additional Information escitalopram (LEXAPRO) 20 MG TabletIndications :Recurrent major depressive disorder, in partial remission (HCC) TAKE 1 TABLET BY MOUTH ONCE DAILY 90 Tab 1 05/21/2020 Suspended Additional Information gabapentin (NEURONTIN) 300 MG Capsule TAKE 1 CAPSULE BY MOUTH IN THE MORNING, 1 CAPSULE MIDDAY, AND 2 CAPSULES IN THE EVENING 180 Cap 2 05/21/2020 Suspended Additional Information traZODone (DESYREL) 50 MG TabletIndications :Sleep disturbances TAKE 1 TABLET BY MOUTH AT BEDTIME 90 Tab 1 05/21/2020 Suspended Additional Information potassium chloride ER 10 MEQ TBCRIndications:H ypokalemia TAKE 1 TABLET BY MOUTH ONCE DAILY WITH FOOD 90 Tab 3 05/25/2020 Suspended Additional Information silver sulfadiazine (SILVADENE) 1 % cream Apply topically to affected area daily. Apply to right great toe 50 g 0 05/26/2020 Suspended Additional Information Continuous Blood Gluc Sensor (FREESTYLE XOCHITL 2 SENSOR SYSTM) M[facility] Freestyle Xochitl 2 14-day Sensor ([id number]) (2 sensors=28 day/1-month supply) 2 Each 1 05/26/2020 Suspended Additional Information Patient not taking. Informant: Pharmacy, Reported on 07/15/2020 Continuous Blood Gluc Edi Specialist (FREESTYLE XOCHITL 2 READER SYSTM) [place] Freestyle Xochitl 2 14-day Edi Specialist ([id number]) 1 Package 0 05/26/2020 Suspended Additional Information Patient not taking. Informant: Pharmacy, Reported on 07/15/2020 famotidine (PEPCID) 20 MG Tablet Take 1 Tab by mouth every night at bedtime. 34 Tab 0 05/29/2020 Suspended Additional Information Trulicity 1.5 MG/0.5ML Subcutaneous Solution Pen-injector (Dulaglutide)Connie cations:Type 2 diabetes mellitus with hemoglobin A1c goal of less than 7.0% ([facility]) Inject 1.5mg (one pen) under the skin once weekly 6 mL 3 06/12/2020 Suspended Additional Information Lantus SoloStar 100 UNIT/ML Subcutaneous Solution Pen-injector (insulin glargine)Indicati ons:Type 2 diabetes mellitus with hemoglobin A1c goal of less than 7.0% (HCC) Inject 30 units under the skin once a day 30 mL 3 06/19/2020 Suspended Additional Information BD Pen Needle Mini U/F 31G X 5 MM (Insulin Pen Needle)Indication s:Type 2 diabetes mellitus with hemoglobin A1c goal of less than 7.0% (HCC) Use to inject insulin four times daily; E11.42 400 Each 3 06/23/2020 Suspended Additional Information Insulin Aspart 100 UNIT/ML Subcutaneous Solution (NovoLOG) Inject 26 units under the skin before breakfast, 26 units before lunch, and 30 units before supper 60 mL 3 06/24/2020 Suspended Additional Information Pantoprazole Sodium 20 MG Oral Tablet Delayed Release (PROTONIX)Indicat ions:NAFLD (nonalcoholic fatty liver disease),Other cirrhosis of liver (HCC) Take 2 Tabs by mouth 2 times a day. 180 Tab 1 07/07/2020 Suspended Additional Information documented as of this [...] pain 01/24/2012 01/17/2017 Genetic Sleep Disorder Research Other*[id number] 05/13/2011 04/07/2016 Obstructive sleep apnea 01/18/2011 12/27/19 [...] Notes * Telephone Encounter - Radha Turner RPh - 07/16/2020 1:22 PM EST Signed Prescriptions: Disp Refills Furosemide 20 MG Oral Tablet (LASIX) 90 Tab 1 Sig: TAKE 1 TABLET BY MOUTH once DAilY NEEDED for edemaAuthorizing Provider: MAIKEL CACERES User: RADHA TURNER Atorvastatin Calcium 40 MG Oral Tablet (LI*90 Tab 1 Sig: TAKE 1 TABLET BY MOUTH AT BEDTIME Authorizing Provider: MAIKEL CACERES User: RADHA TURNER documented in this encounter Plan of Treatment Upcoming Encounters Date Type Specialty Care Team Description 0 Office Visit Wound Prakash Maya PA-C [address], [place] [id number] 0 Office Visit Family Medicine Maikel Caceres, DO [address] [place] [address] [phone] Office Visit Endocrinology Alberta Duque PA-C [address], [place] [phone] 0 Office Visit [facility]enterology Essence Chase [facility]C [address] [facility] [address] [phone] Office Visit [facility] [address], [place] [address] 0 Hospital Encounter [facility] Janis Hatch, DO [address] [facility] [place] [address] [phone] Surgery Surgery Janis Hatch, DO [address] [facility] [place] [address] [phone] ESOPHAGOGASTRODUODENOSCOPY (EGD), FLEXIBLE, TRANSORAL, DIAGNOSTIC 0 Office Visit Family Medicine Maikel Caceres, DO [address] [place] [address] [phone] Imaging Radiology 1 Office Visit Gastroenterology Lyssa Stout CRNP [address] [facility] [place] [address] [phone] Health Maintenance Due Date Last Done Comments [...] of this encounter Implants Implanted Type Area Jigger Operator Device Identifier Shelf Expiration Date Model / Serial / Lot Microtech Sure Clip Implanted:Qty: 2 on 06/03/2020 by Janis Hatch DO at OR [facility] Clip N/A: Colon 04/21/2022 [facility]-F-26-2 35-C-R / / [id number] documented as of this encounter Visit Diagnoses Diagnosis Localized edema Edema Venous stasis dermatitis of both lower extremities Dyslipidemia, goal LDL below 70 Other and unspecified hyperlipidemia Portal hypertension (HCC) Portal hypertension Esophageal varices (HCC) Esophageal varices without mention of bleeding documented in this encounter Advance Directives Documents on File Type Date Recorded Patient Fowl Blood Tester Expl anation Advanced Directive service a [...] Name Relationship Healthcare Agent Vidal mendosa Communication Seyd Bustos Spouse Emergency Contact
--- OUTSIDE RECORDS SUMMARY | 2023-05-10 22:09 | External Medical Summary ---
Author Name Unknown Address Unknown Organization R:IT USE ONLY!!! Laboratory Report Ordering Provider Test Date Status MARISABEL REAVES 07/16/2020 08:08:00 Final Observation Date Value Abnormality Reference (Units ) Status Glucose Point of Care 07/16/2020 08:15 130 Above high normal 70-120 (mg/dL) Final Performing Location IT USE ONLY!!!
--- OUTSIDE RECORDS SUMMARY | 2023-05-10 22:09 | External Medical Summary ---
Author Name Unknown Address [facility] [place] [address] Phone Organization K01:[place] [id number] Laboratory Report Ordering Provider Test Date Status MERRY OVIEDO 07/16/2020 04:46:00 Final Observation Date Value Abnormality Reference (Units ) Status Magnesium 07/16/2020 05:45 1.7 1.5-2.6 (mg/d L) Final Performing Location [address] [address]
--- OUTSIDE RECORDS SUMMARY | 2023-05-10 22:09 | External Medical Summary ---
Author Name Unknown Address Unknown Organization R:IT USE ONLY!!! Laboratory Report Ordering Provider Test Date Status MARISABEL REAVES 07/16/2020 11:25:00 Final Observation Date Value Abnormality Reference (Units ) Status Glucose Point of Care 07/16/2020 11:35 153 Above high normal 70-120 (mg/dL) Final Performing Location IT USE ONLY!!!
--- OUTSIDE RECORDS SUMMARY | 2023-05-10 22:09 | External Medical Summary | Summary of Care ---
Author Name Unknown Organization [place] [address] Care Team Providers Care Traffic Court Referee Name Role Phone aCrlosjosekleberAlexandra fernandez Primary Care Provider [phone] Reason for Visit * Reason Onset Date Comments Precert Future 07/14/2020 Sharon Encounter Details Date Type Department Care Team Description 07/14/2020 Telephone Hematology/Oncology Treatment, [place] [address] [place] [address] Zelda Kirk CRNP [address] [place] [address] [phone] Precert Future (Sharon) Allergies Active Allergy Reactions Severity Noted [...] 11 0 Suspended Additional Information nystatin (NYSTOP) 149229 UNIT/GM powder Apply topically to affected area [...] NIGHT AT BEDTIME 90 Tab 1 0 Suspended Additional Information furosemide (LASIX) 20 MG TabletIndications :Localized edema,Venous stasis dermatitis of both lower extremities TAKE 1 TABLET BY MOUTH ONCE DAILY NEEDED FOR EDEMA 30 Tab 5 0 Suspended Additional Information levothyroxine (LEVOXYL) 200 MCG Tablet Take 1 [...] (FREESTYLE XOCHITL 2 SENSOR SYSTM) [facility] Freestyle Xochitl 2 14-day Sensor ([id number]) (2 sensors=28 day/1-month supply) 2 Each 1 0 Suspended Additional Information Patient not taking. Informant: Pharmacy, Reported on 07/15/2020 Continuous Blood Gluc Public Relations Analyst (FREESTYLE XOCHITL 2 READER SYSTM) [place] Freestyle Xochitl 2 14-day Public Relations Analyst ([id number]) 1 Package 0 0 Suspended Additional Information [...] 07/15/20 20 Discontinued(Med ication List Clean Up) Trulicity 1.5 MG/0.5ML Subcutaneous [...] pain 01/24/2012 01/17/2017 Genetic Sleep Disorder Research Other*[id number] 05/13/2011 04/07/2016 Obstructive sleep apnea 01/18/2011 12/27/19 [...] Wound Care Prakash Honeycutt PA-C [address] [facility] [place] [address] 0 Office Visit Endocrinology Alberta Duque PA-C [address] [facility] [place] [address] 0 Office Visit Gastroenterology Essence Chase PA-C [address] [facility] [place] [address] [phone] Office Visit Pharmacy [place], [facility] [address] [facility], [place] [phone] 0 Hospital Encounter Surgery Janis Hatch, DO [address] [place], [place] [address] [phone] Surgery Surgery Janis Hatch, DO [address] [place], [place] [address] [phone] ESOPHAGOGASTRODUODENOSCOPY (EGD), FLEXIBLE, TRANSORAL, DIAGNOSTIC 0 Office Visit Family Medicine Alexandra Caceres, DO [address] [facility] [place] [address] [phone] Imaging Radiology 1 Office Visit Gastroenterology Lyssa Stout, ZAK [address] [facility], [place] [address] [phone] Health Maintenance Due Date Last Done Comments [...] of this encounter Implants Implanted Type Area Communications Attendant Device Identifier Shelf Expiration Date Model / Serial / Lot Microtech Sure Clip Implanted:Qty: 2 on 06/03/2020 by Janis Hatch DO at OR [facility] Clip N/A: Colon 04/21/2022 [facility]-F-26-2 35-C-R / / [id number] documented as of this encounter Advance Directives Documents on File Type Date Recorded Patient Pantograph Transferrer Expl anation Advanced Directive service a kerri [...] 07/15/2020 9:57 AM Advanced Directive Advanced Directive Latest Code Status [...]
--- OUTSIDE RECORDS SUMMARY | 2023-05-10 22:10 | External Medical Summary ---
Author Name Unknown Address Unknown Organization R:IT USE ONLY!!! Laboratory Report Ordering Provider Test Date Status MARISABEL REAVES 07/15/2020 07:51:00 Final Observation Date Value Abnormality Reference (Units ) Status Glucose Point of Care 07/15/2020 07:55 156 Above high normal 70-120 (mg/dL) Final Performing Location IT USE ONLY!!!
--- OUTSIDE RECORDS SUMMARY | 2023-05-10 22:10 | External Medical Summary ---
Author Name Unknown Address [facility] [address] [facility] [place] [address] Phone Organization K01:[address] [place] [address] Laboratory Report Ordering Provider Test Date Status JANELLEEMILYCONCHITA 07/14/2020 18:48:00 Final Observation Date Value Abnormality Reference (Units ) Status Lactic Acid 07/14/2020 19:20 1.4 0.4-2.0 (mm ol/L) Final Performing Location [address] [address]
--- OUTSIDE RECORDS SUMMARY | 2023-05-10 22:10 | External Medical Summary ---
Author Name Unknown Address [address] [place] [address] Phone Organization K01:[place] [address] Laboratory Report Ordering Provider Test Date Status MERRY OVIEDO 07/15/2020 08:45:00 Final Observation Date Value Abnormality Reference (Units) Status Source 07/15/2020 09:02 CLEAN CATCH URINE Final Bacteria identified in Unspecified specimen by Culture 07/17/2020 23:13 10,000 TO 100,000 COLONIES/ML CITROBACTER FREUNDII This bacterial species is known to produce a chromosomal AmpC inducible beta lactamase. Penicillin or cephalosporin use, with the exception of cefepime, may result in resistance. Abnormal Final Bacteria identified in Unspecified specimen by Culture 07/17/2020 23:13 LESS THAN 10,000 COLONIES/ML MIXED NORMAL MAYRA Final REPORT STATUS 07/18/2020 07:46 07/18/2020 FINAL Final Bacteria identified in Isolate by Culture 07/17/2020 23:13 CITROBACTER FREUNDII Abnormal Final Performing Location [address] [address]
--- OUTSIDE RECORDS SUMMARY | 2023-05-10 22:10 | External Medical Summary ---
Author Name Unknown Address [address] [facility] [place] [address] Phone Organization K01:[facility] [address] [place] [id number] Laboratory Report Ordering Provider Test Date Status CONCHITA DIEGO 07/14/2020 21:05:00 Final Observation Date Value Abnormality Reference (Units ) Status Color of Urine by Auto 07/14/2020 22:12 YELLOW YEL Final Clarity, Urine 07/14/2020 22:12 CLEAR CLEAR Final Glucose [Mass/volume] in Urine by Automated test strip 07/14/2020 22:12 NEGATIVE NEG (mg/dL) Final Bilirubin [Presence] in Urine by Automated test strip 07/14/2020 22:12 NEGATIVE NEG Final Ketones [Mass/volume] in Urine by Automated test strip 07/14/2020 22:12 NEGATIVE NEG (mg/dL) Final Specific gravity, Urine 07/14/2020 22:12 >1.050 Above high normal 1.003-1.030 Final Hemoglobin [Presence] in Urine by Automated test strip 07/14/2020 22:12 SMALL Abnormal NEG Final pH, Urine 07/14/2020 22:12 6.5 5.0-7.5 (units) Final Protein [Mass/volume] in Urine by Automated test strip 07/14/2020 22:12 30 Abnormal NEG (mg/dL) Final Urobilinogen [Mass/volume] in Urine by Automated test strip 07/14/2020 22:12 NORMAL NORM (mg/dL) Final Nitrite [Presence] in Urine by Automated test strip 07/14/2020 22:12 NEGATIVE NEG Final Leukocyte esterase [Presence] in Urine by Automated test strip 07/14/2020 22:12 SMALL Abnormal NEG Final Bacteria [#/area] in Urine by Automated count 07/14/2020 22:12 0-25 [id number] (/HPF) Final Leukocytes [#/area] in Urine sediment by Automated count 07/14/2020 22:12 30-49 Abnormal U02 (/HPF) Final Erythrocytes [#/area] in Urine sediment by Automated count 07/14/2020 22:12 10-19 Abnormal U02 (/HPF) Final Hyaline casts [#/area] in Urine sediment by Automated count 07/14/2020 22:12 1-4 UM1 (/LPF) Final Performing Location [facility] [address] [facility]. [facility] [address]
--- OUTSIDE RECORDS SUMMARY | 2023-05-10 22:10 | External Medical Summary | Summary of Care ---
Author Name Unknown Organization [place] [address] Care Team Providers Care Assembler Engine Name Role Phone NickiAlexandra Daisha MORENO Primary Care Provider Reason for Visit * Reason Onset Date Comments Precert Future 07/14/2020 venofer Encounter Details Date Type Department Care Team Description 07/14/2020 Telephone Hematology/Oncology Treatment, [place] [address] [place] [address] Zelda Kirk CRNP [address] [place] [address] [phone] Precert Future (venofer) Allergies Active Allergy Reactions Severity Noted Date Comments Adhesive Tape Itching 04/29/2020 Penicillins Rash 02/12/2008 Perflutren Protein A Microsph 2019 Definity-lower back pain documented as of this encounter (statuses as of 07/14/2020) Medications Medication Sig Dispensed Refills Start Date [...] 120 Vial 11 10/02/2019 Active nystatin (NYSTOP) 362293 UNIT/GM powder Apply topically to affected area [...] per day. 100 Each 3 11/19/2019 Active atorvaSTATin (LIPITOR) 40 MG TabletIndications:Dys lipidemia, goal LDL below 70 TAKE 1 TABLET BY MOUTH EVERY NIGHT AT BEDTIME 90 Tab 1 12/30/2019 Active furosemide (LASIX) 20 MG TabletIndications:Loc alized edema,Venous stasis dermatitis of both lower extremities TAKE 1 TABLET BY MOUTH ONCE DAILY NEEDED FOR EDEMA 30 Tab 5 01/28/2020 Active levothyroxine (LEVOXYL) 200 MCG Tablet Take [...] Gluc Sensor (FREESTYLE XOCHITL 2 SENSOR SYSTM) [facility] Freestyle Xochitl 2 14-day Sensor ([id number]) (2 sensors=28 day/1-month supply) 2 Each 1 05/26/2020 Active Continuous Blood Gluc Electric Accounting Machine Operator (FREESTYLE XOCHITL 2 READER SYSTM) [place] Freestyle Xochitl 2 14-day Electric Accounting Machine Operator ([id number]) 1 Package 0 05/26/2020 Active famotidine (PEPCID) 20 MG Tablet Take 1 Tab by mouth every night at bedtime. 34 Tab 0 05/29/2020 Active Sucralfate 1 GM/10ML Oral Suspension (Carafate) Take 10 mL by mouth 2 times a day. Use twice daily for 4 weeks 600 mL 0 06/05/2020 Active Trulicity 1.5 MG/0.5ML Subcutaneous Solution Pen-injector (Dulaglutide)Indicati ons:Type 2 diabetes mellitus with hemoglobin A1c goal of less than 7.0% (HCC) Inject 1.5mg (one pen) under the skin once weekly 6 mL 3 06/12/2020 Active SM Aspirin Adult Low Strength 81 MG Oral Tablet Delayed Release (aspirin enteric coated) TAKE 1 TABLET BY MOUTH ONCE DAILY 90 Tab 1 06/18/2020 Active Lantus SoloStar 100 UNIT/ML Subcutaneous Solution [...] a day. 180 Tab 1 07/07/2020 Active documented as of this encounter (statuses as of 07/14/2020) Active Problems Problem Noted Date Acute blood loss anemia 07/06/2020 Esophagitis 07/06/2020 [...] as of this encounter (statuses as of 07/14/2020) Resolved Problems Problem Noted Date Resolved Date [...] pain 01/24/2012 01/17/2017 Genetic Sleep Disorder Research Other*[id number] 05/13/2011 04/07/2016 Obstructive sleep apnea 01/18/2011 12/27/19 [...] as of this encounter (statuses as of 07/14/2020) Immunizations Name Administration Dates Next Due HEP [...] Description 0 Office Visit Family Medicine Alexandra Caceres, DO [address] [place] [address] [phone] Office Visit Wound Care Prakash Honeycutt PA-C [address], [place] [phone] 0 Office Visit Endocrinology Alberta Duque PA-C [address], [place] [phone] 0 Office Visit Gastroenterology Essence Chase PA-C [address] [facility] [place] [address] [phone] 0 Office Visit Pharmacy [facility] [address] [place] [address] [phone] Hospital Encounter Surgery Janis Hatch DO [address] [place] [address] [phone] Surgery Surgery Janis Hatch, DO [address] [place] [address] [phone] ESOPHAGOGASTRODUODENOSCOPY (EGD), FLEXIBLE, TRANSORAL, DIAGNOSTIC 0 Office Visit Family Medicine Alexandra Caceres, DO [address] [facility], [place] [address] [phone] Imaging Radiology 1 Office Visit Gastroenterology Lyssa Stout, ZAK [address] [place] [address] [phone] Health Maintenance Due Date Last Done Comments [...] 05/26/2020, 04/28/2020, Additional history exists Yearly B-12 04/25/2021 04/25/2020, 02/09, 11/11/2019, Additional history exists COLONOSCOPY-EVERY 5 YRS AGES [...] of this encounter Implants Implanted Type Area Student Worker Device Identifier Shelf Expiration Date Model / Serial / Lot Microtech Sure Clip Implanted:Qty: 2 on 06/03/2020 by Janis Hatch DO at OR [facility] [place] Clip N/A: Colon 04/21/2022 [facility]-F-26-2 35-C-R / / [id number] documented as of this encounter Advance Directives Documents on File Type Date Recorded Patient Lead Software Test Engineer Expl anation Advanced Directive service a [...] 07/06/2020 10:11 AM Advanced Directive Advanced Directive Latest Code Status on File Code Status Date Activated Date Inactivated Comments Full Code 07/04/2020 3:26 PM 07/07/2020 6:07 [...] Discussion of Advance Directives occurred with: Patient/Family Full Code 04/23/2020 12:30 AM 04/25/2020 7:21 PM This order reflects the patients wishes and were consensually agreed upon. Discussion of Advance Directives occurred with: Patient Healthcare Agents on File Name Relationship Healthcare Agent [facility] p Communication Syed Bustos Spouse Emergency Contact
--- OUTSIDE RECORDS SUMMARY | 2023-05-10 22:10 | External Medical Summary ---
Author Name Unknown Address [facility] [place] [address] Phone Organization K01:[place] [address] [address] [place] [id number] Laboratory Report Ordering Provider Test Date Status JANELLEEMILYCONCHITA 07/14/2020 21:05:00 Final Observation Date Value Abnormality Reference (Units) Status Source 07/14/2020 23:20 CATHETERIZED URINE Final Bacteria identified in Unspecified specimen by Culture 07/15/2020 18:23 LESS THAN 100 COLONIES/ML (NO GROWTH) Final REPORT STATUS 07/15/2020 18:23 07/15/2020 FINAL Final Performing Location [facility] [address] [facility] [address]
--- OUTSIDE RECORDS SUMMARY | 2023-05-10 22:10 | External Medical Summary ---
Author Name Unknown Address Unknown Organization R:IT USE ONLY!!! Laboratory Report Ordering Provider Test Date Status MARISABEL REAVES 07/15/2020 11:47:00 Final Observation Date Value Abnormality Reference (Units ) Status Glucose Point of Care 07/15/2020 11:50 134 Above high normal 70-120 (mg/dL) Final Performing Location IT USE ONLY!!!
--- OUTSIDE RECORDS SUMMARY | 2023-05-10 22:10 | External Medical Summary | Summary of Care ---
Author Name Unknown Organization [facility] Address [facility] [place] [address] Care Team Providers Care Operations Scheduler Name Role Phone Alexandra Caceres DO Primary Care Provider Reason for Visit * Reason Onset Date Comments Advice 07/14/2020 Encounter Details Date Type Department Care Team Description 07/14/2020 Telephone [facility] [address] [place], [place] [id number] Alexandra Caceres DO [address] [place] [address] [phone] Advice Allergies Active Allergy Reactions Severity Noted [...] 120 Vial 11 10/02/2019 Active nystatin (NYSTOP) 920807 UNIT/GM powder Apply topically to affected area [...] SYSTM) MISC Freestyle Xochitl 2 14-day Sensor (632732) (2 sensors=28 day/1-month supply) 2 Each 1 05/26/2020 Active Continuous Blood Gluc Swimming Pool Cleaner (FREESTYLE XOCHITL 2 READER SYSTM) KORTNEY Freestyle Xochitl 2 14-day Swimming Pool Cleaner (423732) 1 Package 0 05/26/2020 Active famotidine (PEPCID) [...] pain 01/24/2012 01/17/2017 Genetic Sleep Disorder Research Other*[id number] 05/13/2011 04/07/2016 Obstructive sleep apnea 01/18/2011 12/27/19 [...] Telephone Encounter - Josselin Gaspar LPN - 07/14/2020 12:35 PM EST Call was lost at transfer. Called back- Patient states her blood sugar is 476-feels unwell. on another line in the house-says she ate one banana and a chocolate meal replacement shake today. She complains of wheezing and gasping for breath, worse when she lays down. Complains of a headache, 10 on pain scale. Spoke to [facility]-advised to go to the ER. Patient agreeable- will take her. * Telephone Encounter - Dominique Kan LPN - 07/14/2020 12:30 PM EST Pt calling with an elevated BS of 471, complaint of SOB with audible wheezes, COLON, and dizziness. TC to [facility], call warm transferred as requested. * Telephone Encounter - Rajni Ng OSA - 07/14/2020 12:18 PM EST Reason for patient's call: pt said her sugar is really high 278 this morning and the sugar pt just took is 476 Pt is having difficulty breathing and pt has a headache, pt is feeling dizziness Caller was transferred to Dominique at the nurse line. documented in this encounter Plan of Treatment Upcoming Encounters Date Type Specialty Care Team Description 0 Office Visit Family Medicine Alexandra Caceres, [address] [place] [id number] [phone] Office Visit Wound Care Yinka Prakash Hieu, JEYSON [address] [place], [place] [address] 0 Office Visit Endocrinology Alberta Duque PA-C [address] [place], [place] [address] 0 Office Visit Gastroenterology Essence Chase PA-C [address] [place], [place] [address] [phone] Office Visit Pharmacy [facility] [address] [place], [place] [address] 0 Hospital Encounter Surgery Janis Hatch, DO [address] [facility] [place] [address] [phone] Surgery Surgery Janis Hatch, DO [address] [facility], [place] [address] [phone] ESOPHAGOGASTRODUODENOSCOPY (EGD), FLEXIBLE, TRANSORAL, DIAGNOSTIC 0 Office Visit Family Medicine Alexandra Caceres, DO [address] [place] [address] [phone] Imaging Radiology 1 Office Visit Gastroenterology Lyssa Stout CRNP [address] [facility] [place] [address] [phone] Health Maintenance Due Date Last Done Comments [...] this encounter Implants Implanted Type Area Street Contractor Device Identifier Shelf Expiration Date Model / Serial / Lot Microtech Sure Clip Implanted:Qty: 2 on 06/03/2020 by Janis Hatch DO at OR [facility] Clip N/A: Colon 04/21/2022 [facility]-F-26-2 35-C-R / / [id number] documented as of this encounter Advance Directives Documents on File Type Date Recorded Patient Superintendent Maintenance Expl anation Advanced Directive service a [...]
--- OUTSIDE RECORDS SUMMARY | 2023-05-10 22:10 | External Medical Summary ---
Author Name Unknown Address [facility] [address] [facility] [place] [address] Phone Organization K01:[facility] [address] [facility] [place] [address] Laboratory Report Ordering Provider Test Date Status CONCHITA DIEGO 07/14/2020 18:48:00 Final Observation Date Value Abnormality Reference (Units ) Status Albumin 07/14/2020 19:47 3.8 3.8-5.0 (g/dL) Final AST (Aspartate aminotransferase) 07/14/2020 19:24 42 Above high normal 10-35 (U/L) Final Alk Phos 07/14/2020 19:24 169 Above high normal 0-153 (U/L) Final ALT (Alanine aminotransferase) 07/14/2020 19:24 27 10-35 (U/L) Final Bilirubin, Total 07/14/2020 19:24 0.9 0-1.2 (mg/dL) Final Bilirubin, Direct 07/14/2020 19:24 0.4 Above high normal 0-0.3 (mg/dL) Final Protein 07/14/2020 19:24 7.2 6.0-8.3 (g/dL) Final Performing Location [place] [address] [address] [facility] [place] [address]
--- OUTSIDE RECORDS SUMMARY | 2023-05-10 22:11 | External Medical Summary ---
Author Name Unknown Address [facility] [address] [place] [id number] Phone Organization K01:[place] [id number] Laboratory Report Ordering Provider Test Date Status AIMEEDE 07/14/2020 16:24:00 Final Observation Date Value Abnormality Reference (Units ) Status Troponin T 07/14/2020 17:06 8 0-14 (ng/L) Final Performing Location [address] [address]
--- OUTSIDE RECORDS SUMMARY | 2023-05-10 22:11 | External Medical Summary ---
Author Name Unknown Address [facility] [place] [id number] Phone Organization K01:[place] [address] [address] [place] [id number] Laboratory Report Ordering Provider Test Date Status EDE SALOMON 07/14/2020 16:24:00 Final Observation Date Value Abnormality Reference (Units ) Status 25-OH Vitamin D total 07/15/2020 01:41 34 > 19 (ng/mL) Final Performing Location [address] [address]
--- OUTSIDE RECORDS SUMMARY | 2023-05-10 22:11 | External Medical Summary ---
Author Name Unknown Address [facility] N [facility] [place] [address] Phone Organization K01:[place] [address] [address] [facility] [place] [address] Laboratory Report Ordering Provider Test Date Status EDE SALOMON 07/14/2020 16:24:00 Final Observation Date Value Abnormality Reference (Units ) Status Vitamin B12 07/15/2020 01:44 675 [id number] (p g/mL) Final Performing Location [address] [address]
--- OUTSIDE RECORDS SUMMARY | 2023-05-10 22:11 | External Medical Summary ---
Author Name Unknown Address [facility] [place] [address] Phone Organization K01:[facility] [address] [facility] [place] [address] Laboratory Report Ordering Provider Test Date Status EDE SALOMON 07/14/2020 16:24:00 Final Observation Date Value Abnormality Reference (Units ) Status BUN 07/14/2020 17:06 9 6-20 (mg/dL) Final Creatinine 07/14/2020 17:06 0.6 0.5-1.0 (mg/ dL) Final E Glom Filt Rate 07/14/2020 17:06 >60.0 >60 Final Performing Location [facility] [address] [facility] [place] [address]
--- OUTSIDE RECORDS SUMMARY | 2023-05-10 22:11 | External Medical Summary ---
Author Name Unknown Address [address] [facility] [place] [address] Phone Organization K01[facility] [address] [facility] [place] [address] Laboratory Report Ordering Provider Test Date Status EDE SALOMNO 07/14/2020 16:24:00 Final Observation Date Value Abnormality Reference (Units) Status WBC, Total 07/14/2020 17:24 3.11 Below low normal 4.00-10.80 (K/uL) Final RBC 07/14/2020 17:24 3.04 Below low normal 3.85-5.15 (M/uL) Final Hemoglobin 07/14/2020 17:24 8.3 Below low normal 12.0-15.3 (g/dL) Final HCT 07/14/2020 17:24 28.8 Below low normal 36.0-45.2 (%) Final MCV 07/14/2020 17:24 94.7 81.5-97.5 (fL) Final MCH 07/14/2020 17:24 27.3 27.0-34.0 (pg) Final MCHC 07/14/2020 17:24 28.8 Below low normal 32.0-36.0 (g/dL) Final RDW 07/14/2020 17:24 20.1 Above high normal 11.5-15.5 (%) Final Platelets 07/14/2020 17:24 77 Below low normal 140-400 (K/uL) Final MPV 07/14/2020 17:24 NO RESULT - ABNORMAL PLATELET DISTRIBUTION 6.6-11.1 (fL) Final Nucleated erythrocytes/100 leukocytes [Ratio] in Blood by Automated count 07/14/2020 17:24 0 0 (/100 WBCs) Final Segs 07/14/2020 18:34 54.4 40-75 (%) Final Lymphs % 07/14/2020 18:34 28.3 18-42 (%) Final Monos 07/14/2020 18:34 9.3 1-11 (%) Final Eosinophils 07/14/2020 18:34 6.4 Above high normal 0-6 (%) Final Basos 07/14/2020 18:34 1.3 0-2 (%) Final Immature Granulocyte, Percent 07/14/2020 18:34 0.3 0-2 (%) Final Neutrophils [#/volume] in Blood 07/14/2020 18:34 1.69 Below low normal 1.8-7.7 (K/uL) Final Lymphs, absolute 07/14/2020 18:34 0.88 Below low normal 1.0-4.8 (K/uL) Final Monos, Abs 07/14/2020 18:34 0.29 0.0-1.1 (K/uL) Final Eos, Abs 07/14/2020 18:34 0.20 0.0-0.7 (K/uL) Final Basos, Abs 07/14/2020 18:34 0.04 0.0-0.2 (K/uL) Final Immature Granulocytes, Number 07/14/2020 18:34 0.01 0.0-0.2 (K/uL) Final Anisocytosis [Presence] in Blood by Light microscopy 07/14/2020 18:34 MARKED Final Polychromasia [Presence] in Blood by Light microscopy 07/14/2020 18:34 SLIGHT Final Hypochromia [Presence] in Blood by Light microscopy 07/14/2020 18:34 MARKED Final Macrocytes [Presence] in Blood by Light microscopy 07/14/2020 18:34 PRESENT Final Ovalocytes [Presence] in Blood by Light microscopy 07/14/2020 18:34 FEW Final Dacrocytes [Presence] in Blood by Light microscopy 07/14/2020 18:34 FEW Final Platelets Large [Presence] in Blood by Light microscopy 07/14/2020 18:34 PRESENT Final Performing Location [facility] [address] [facility] [address]
--- OUTSIDE RECORDS SUMMARY | 2023-05-10 22:11 | External Medical Summary | Summary of Care ---
Author Name Unknown Organization [place] [address] Care Team Providers Care Spray Blender Name Role Phone Alexandra Caceres Primary Care Provider Reason for Visit * Reason Onset Date Comments Advice 07/08/2020 Encounter Details Date Type Department Care Team Description 07/08/2020 Telephone Ancillary Department, [address] [address] Rosio Hunter rail signal mechanic Allergies Active Allergy Reactions Severity Noted Date Comments Adhesive Tape Itching 04/29/2020 Penicillins Rash 02/12/2008 Perflutren Protein A Microsph 2019 Definity-lower back pain documented as of this encounter (statuses as of 07/10/2020) Medications Medication Sig Dispensed Refills Start Date [...] 120 Vial 11 10/02/2019 Active nystatin (NYSTOP) 216320 UNIT/GM powder Apply topically to affected area [...] SYSTM) MISC Freestyle Xochitl 2 14-day Sensor (844335) (2 sensors=28 day/1-month supply) 2 Each 1 05/26/2020 Active Continuous Blood Gluc Manager Trainee (FREESTYLE XOCHITL 2 READER SYSTM) KORTNEY Freestyle Xochitl 2 14-day Manager Trainee (854418) 1 Package 0 05/26/2020 Active famotidine (PEPCID) [...] as of this encounter (statuses as of 07/10/2020) Active Problems Problem Noted Date Acute blood [...] as of this encounter (statuses as of 07/10/2020) Resolved Problems Problem Noted Date Resolved Date [...] pain 01/24/2012 01/17/2017 Genetic Sleep Disorder Research Other*[id number] 05/13/2011 04/07/2016 Obstructive sleep apnea 01/18/2011 12/27/19 [...] as of this encounter (statuses as of 07/10/2020) Immunizations Name Administration Dates Next Due HEP [...] Telephone Encounter - Brianne Triana RN - 07/10/2020 10:27 AM EDT This has been fully explained to the patient, who indicates understanding. * Telephone Encounter - Brianne Triana RN - 07/09/2020 2:08 PM EDT I attempted to contact the patient at both numbers, no answer and no voicemail available. * Telephone Encounter - Lyssa Stout CRNP - 07/09/2020 10:27 AM EDT Pls inform pt that she can dissolve Carafate tablet in water to make a suspension slurry. Continue to take as dosed ZAK Schreiber * Telephone Encounter - Rosio Hunter RN - 07/08/2020 2:40 PM EDT Patient was ordered sucralfate liquid on 06/05/2020 she has completed it. She also was ordered tablets on 06/01/2020 of sucralfate from Pcp on 06/01/2020 she has not taken any of the tablets. iswondering if patient need to continue with the Sucralfate and if so should it be liquid or tablets.Can you please advise patient? documented in this encounter Plan of Treatment Upcoming Encounters Date Type Specialty Care Team Description 0 Office Visit Hematology Oncology Zelda Kirk CRNP [address] [place] [address] 0 Office Visit Family Medicine Alexandra Caceres DO [address] [place] [address] [phone] 0 Office Visit Wound Care Prakash Honeycutt, JEYSON [address] [place], [place] [address] 0 Office Visit Endocrinology Alberta Duque PA-C [address] [place] [address] 0 Office Visit Gastroenterology Essence Chase PA-C [address] [place] [address] [phone] 0 Office Visit Pharmacy [facility] [address] [place] [address] [phone] Hospital Encounter Surgery Janis Hatch, DO [address] [facility] [place] [address] [phone] Surgery Surgery Janis Hatch, DO [address] [facility] [address] [phone] ESOPHAGOGASTRODUODENOSCOPY (EGD), FLEXIBLE, TRANSORAL, DIAGNOSTIC 0 Office Visit Family Medicine Alexandra Caceres, DO [address] [place] [address] [phone] Imaging Radiology 1 Office Visit Gastroenterology Lyssa Stout CRNP [address] [facility] [place] [address] [phone] Health Maintenance Due Date Last Done Comments [...] this encounter Implants Implanted Type Area Inspector And Adjuster Golf Club Head Device Identifier Shelf Expiration Date Model / Serial / Lot Microtech Sure Clip Implanted:Qty: 2 on 06/03/2020 by Janis Hatch DO at OR H Clip N/A: Colon 04/21/2022 [facility]-F-26-2 35-C-R / / [id number] documented as of this encounter Advance Directives Documents on File Type Date Recorded 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
--- OUTSIDE RECORDS SUMMARY | 2023-05-10 22:11 | External Medical Summary ---
Author Name Unknown Address [facility] [place] [address] Phone Organization K01:[place] [address] [address] [place] [id number] Laboratory Report Ordering Provider Test Date Status EDE SALOMON 07/14/2020 16:24:00 Final Observation Date Value Abnormality Reference (Units ) Status TSH 07/14/2020 17:33 0.69 0.27-4.2 (uIU /mL) Final T4, Free 07/14/2020 17:33 NOT APPLICABLE 0.9-1.7 (ng/dL) Final Performing Location [facility] [address] [facility] [address]
--- OUTSIDE RECORDS SUMMARY | 2023-05-10 22:11 | External Medical Summary ---
Author Name Unknown Address Unknown Organization R:IT USE ONLY!!! Laboratory Report Ordering Provider Test Date Status MARISABEL REAVES 07/14/2020 16:13:00 Final Observation Date Value Abnormality Reference (Units ) Status Glucose Point of Care 07/15/2020 09:35 199 Above high normal 70-120 (mg/dL) Final Performing Location IT USE ONLY!!!
--- OUTSIDE RECORDS SUMMARY | 2023-05-10 22:11 | External Medical Summary | Summary of Care ---
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 Allergies Active Allergy Reactions Severity Noted Date Comments Adhesive Tape Itching 04/29/2020 Penicillins Rash 02/12/2008 Perflutren Protein A Microsph 2019 Definity-lower back pain documented as of this encounter (statuses as of 07/09/2020) Medications Medication Sig Dispensed Refills Start Date [...] 120 Vial 11 10/02/2019 Active nystatin (NYSTOP) 563511 UNIT/GM powder Apply topically to affected area [...] SYSTM) MISC Freestyle Xochitl 2 14-day Sensor (718201) (2 sensors=28 day/1-month supply) 2 Each 1 05/26/2020 Active Continuous Blood Gluc Anthropologist Physical (FREESTYLE XOCHITL 2 READER SYSTM) KORTNEY Freestyle Xochitl 2 14-day Anthropologist Physical (164446) 1 Package 0 05/26/2020 Active famotidine (PEPCID) [...] as of this encounter (statuses as of 07/09/2020) Active Problems Problem Noted Date Acute blood [...] as of this encounter (statuses as of 07/09/2020) Resolved Problems Problem Noted Date Resolved Date [...] pain 01/24/2012 01/17/2017 Genetic Sleep Disorder Research Other*[id number] 05/13/2011 04/07/2016 Obstructive sleep apnea 01/18/2011 12/27/19 [...] as of this encounter (statuses as of 07/09/2020) Immunizations Name Administration Dates Next Due HEP [...] Visit Hematology Oncology Zelda Kirk CRNP [address] [place] [address] [phone] Office Visit Family Medicine Alexandra Caceres DO [address] [place] [address] [phone] Office Visit Wound Care Prakash Honeycutt PA-C [address] [place] [address] 0 Office Visit Endocrinology Alberta Duque PA-C [address] [facility] [place] [address] 0 Office Visit Gastroenterology Essence Chase PA-C [address] [facility] [address] [phone] Office Visit [facility] [address] [place] [address] [phone] Hospital Encounter Surgery Janis Hatch, DO [facility] [place] [address] [phone] Surgery Surgery Janis Hatch, DO [address] [facility] [place] [address] [phone] ESOPHAGOGASTRODUODENOSCOPY (EGD), FLEXIBLE, TRANSORAL, DIAGNOSTIC 0 Office Visit Family Medicine Alexandra Caceres, DO [address] [place] [address] [phone] Imaging Radiology 1 Office Visit Gastroenterology Lyssa Stout CRNP [address] [facility] [place] [address] [phone] Health Maintenance Due Date Last Done Comments [...] this encounter Implants Implanted Type Area Senior Mobile Application Developer Device Identifier Shelf Expiration Date Model / Serial / Lot Microtech Sure Clip Implanted:Qty: 2 on 06/03/2020 by Janis Hatch DO at OR [facility] Clip N/A: Colon 04/21/2022 [facility]-F-26-2 35-C-R / / [id number] documented as of this encounter Advance Directives Documents on File Type Date Recorded Patient Yard Manager Expl anation Advanced Directive service a [...] Agents on File Name Relationship Healthcare Agent Romainma navya Communication Syed Bustos Spouse Emergency Contact
--- OUTSIDE RECORDS SUMMARY | 2023-05-10 22:11 | External Medical Summary | Summary of Care ---
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 Allergies Active Allergy Reactions Severity Noted Date [...] 120 Vial 11 10/02/2019 Active nystatin (NYSTOP) 541020 UNIT/GM powder Apply topically to affected area [...] SYSTM) MISC Freestyle Xochitl 2 14-day Sensor (298852) (2 sensors=28 day/1-month supply) 2 Each 1 05/26/2020 Active Continuous Blood Gluc Corn Husker (FREESTYLE XOCHITL 2 READER SYSTM) KORTNEY Freestyle Xochitl 2 14-day Corn Husker (185600) 1 Package 0 05/26/2020 Active famotidine (PEPCID) [...] pain 01/24/2012 01/17/2017 Genetic Sleep Disorder Research Other*[id number] 05/13/2011 04/07/2016 Obstructive sleep apnea 01/18/2011 12/27/19 [...] suspension slurry. Continue to take as dosed Lyssa Osborne ZAK Stout * Telephone Encounter - Rosio Hunter RN [...] Hematology Oncology Zelda Kirk CRNP [address] [place] [address] [phone] 0 Office Visit Family Medicine Alexandra Caceres, [address] [place] [address] [phone] 0 Office Visit Wound Care Prakash Honeycutt PA-C [address] [place] [address] 0 Office Visit Endocrinology Alberta Duque PA-C [address] [place] [address] 0 Office Visit [facility]astroenterology Essence Chase PA-C [facility] [place] [address] [phone] Office Visit [facility]acy [facility] [address] [facility] [address] [phone] Hospital Encounter Surgery Janis Hatch, DO [address] [place] [address] [phone] Surgery Surgery [facility]is Hatch, DO [facility] [place] [address] [phone] ESOPHAGOGASTRODUODENOSCOPY (EGD), FLEXIBLE, TRANSORAL, DIAGNOSTIC 0 Office Visit Family Medicine Alexandra Caceres, DO [address] [facility] [address] [phone] Imaging Radiology 1 Office Visit Gastroenterology Lyssa Stout CRNP [address] [facility] [place] [address] [phone] Health Maintenance Due Date Last Done Comments [...] of this encounter Implants Implanted Type Area Tablet Making Machine Operator Device Identifier Shelf Expiration Date Model / Serial / Lot Microtech Sure Clip Implanted:Qty: 2 on 06/03/2020 by Janis Hatch DO at OR H Clip N/A: Colon 04/21/2022 [facility]-F-26-2 35-C-R / / [id number] documented as of this encounter Advance Directives Documents on File Type Date Recorded Patient Chief Accounting Officer Expl anation Advanced Directive service a [...]
--- OUTSIDE RECORDS SUMMARY | 2023-05-10 22:12 | External Medical Summary | Summary of Care ---
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 documented as of this encounter (statuses as of 07/08/2020) Medications Medication Sig Dispensed Refills Start Date [...] 120 Vial 11 10/02/2019 Active nystatin (NYSTOP) 882857 UNIT/GM powder Apply topically to affected area [...] SYSTM) MISC Freestyle Xochitl 2 14-day Sensor (548804) (2 sensors=28 day/1-month supply) 2 Each 1 05/26/2020 Active Continuous Blood Gluc Crane Helper (FREESTYLE XOCHITL 2 READER SYSTM) KORTNEY Freestyle Xochitl 2 14-day Crane Helper (493211) 1 Package 0 05/26/2020 Active famotidine (PEPCID) [...] as of this encounter (statuses as of 07/08/2020) Active Problems Problem Noted Date Acute blood [...] as of this encounter (statuses as of 07/08/2020) Resolved Problems Problem Noted Date Resolved Date [...] pain 01/24/2012 01/17/2017 Genetic Sleep Disorder Research Other*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 05/13/2011 04/07/2016 Obstructive sleep apnea 01/18/2011 12/27/19 [...] as of this encounter (statuses as of 07/08/2020) Immunizations Name Administration Dates Next Due HEP [...] Encounter - Rosio Hunter RN - 07/08/2020 2:10 PM EDT Transitions of Care Note Reason for Referral:Recent Admission Phone visit for follow up: Duy Admitted to: [facility], Date: 07/04/2020 Discharged to: Home Date: 07/07/2020, Diagnosis driving hospitalization: Bacteremia Source/Contact: Patient SUBJECTIVE Consent: Verbal consent for review of hospital discharge: Yes REVIEW OF SYSTEMS Patient/Other Reports: Current patient/caregiver problems or concerns: na CV: Denies problems Pulmonary: SOB- when lying down Chills/Sweats/Fever:Denies chills/sweats Denies fever Appetite:Denies problems such as nausea, vomiting, burning, decreased appetite Bowel: denies problems Bladder: denies problems Wound (If applicable): N/A Pain:Denies Sleep:Denies problems FUNCTIONAL STATUS: ADL'S: Needs Assistance With:Bathing, Eating, Dressing, Toileting, Transferring and Continence IADL'S: Needs Assistance With:Grocery Shopping, Cooking food, Routine Housework, Taking medications, Attending to safety and Managing money Cognitive and Mental Health: denies problems, alert and oriented x 3 and able to communicate, understand instructions, process information. MEDICATION RECONCILIATION Medications: Discharge med list reviewed with patient or caregiver Reviewed and updated all prescription and OTC medications in [facility] Change in Protonix ASSESSMENT Medication Risk Assessment: PolyPharmacy Did patient fail outpatient treatment? Yes Discharge instructions available for review? No PLAN Symptom Monitoring Interventions:Member/caregiver education - signs and symptoms to contact PrimaryCare (DO NOT DELETE-Three ervin symptoms patient is to report to PCP) 1. Sob 2. Chest pain 3. Nausea or vomiting Director Professional ServicesTraveling Engineer of Care interventions/Action Plan: 5 - 7 day follow-up with PCP in place - Date: 07/16/2020 Educated on role of DUY completed with patient/caregiver. Educated patient/caregiver on patient right to have input on DUY plan of care. Verification of Home Health/DME if indicated: NO Identified Care Gaps: Yes Care Gaps closed this call: Transition of Care follow-up communication Re-evaluation of Plan of Care and progress towards goals achievement: Patient education this visit: Verbal, medications, follow ups Plan to verbalizes understanding and agrees with plan. Rosio Hunter RN documented in this encounter Plan of Treatment Upcoming Encounters Date Type Specialty Care Team Description 0 Office Visit Hematology Oncology Zelda Kirk CRNP [address] [place] [address] [phone] Office Visit Family Medicine Alexandra Caceres, [address] [place] [address] [phone] 0 Office Visit Wound Care Prakash Honeycutt PA-C [address] [place], [place] [address] 0 Office Visit Endocrinology Alberta Duque PA-C [address] [place], [place] [phone] 0 Office Visit Gastroenterology Essence Chase [facility]-C [address] [facility] [address] [phone] 0 Office Visit Pharmacy [facility] [address] [place] [address] [phone] Hospital Encounter Surgery Janis Hatch, DO [facility] [place] [address] [phone] Surgery Surgery Janis Hatch, DO [address] [facility] [place] [address] [phone] ESOPHAGOGASTRODUODENOSCOPY (EGD), FLEXIBLE, TRANSORAL, DIAGNOSTIC 0 Office Visit Family Medicine Alexandra Caceres DO [address] [facility] [address] 0 Imaging Radiology 1 Office Visit Gastroenterology Lyssa Stout CRNP [address] [facility] [place] [address] [phone] Health Maintenance Due Date Last Done Comments [...] of this encounter Implants Implanted Type Area Backend Java Developer Device Identifier Shelf Expiration Date Model / Serial / Lot Microtech Sure Clip Implanted:Qty: 2 on 06/03/2020 by Janis Hatch DO at OR [facility] Clip N/A: Colon 04/21/2022 [facility]-F-26-2 35-C-R / / [id number] documented as of this encounter Advance Directives Documents on File Type Date Recorded 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
--- OUTSIDE RECORDS SUMMARY | 2023-05-10 22:12 | External Medical Summary | Summary of Care ---
Author Name Unknown Organization [place] [address] Care Team Providers Care Manufacturer Representative Name Role Phone Maikel Caceres DO Primary Care Provider Reason for Visit * Reason Onset Date Comments Hospital Follow-Up 07/07/2020 Encounter Details Date Type Department Care Team Description 07/07/2020 Telephone [facility] [address], [place] [id number] Maikel Caceres DO [address] [place], [place] [phone] Hospital Follow-Up Allergies Active Allergy Reactions Severity [...] 120 Vial 11 10/02/2019 Active nystatin (NYSTOP) 395474 UNIT/GM powder Apply topically to affected area [...] SYSTM) MISC Freestyle Xochitl 2 14-day Sensor (716003) (2 sensors=28 day/1-month supply) 2 Each 1 05/26/2020 Active Continuous Blood Gluc [facility] (FREESTYLE XOCHITL 2 READER SYSTM) KORTNEY Freestyle Xochitl 2 14-day [facility] (136234) 1 Package 0 05/26/2020 Active famotidine (PEPCID) [...] pain 01/24/2012 01/17/2017 Genetic Sleep Disorder Research Other*[id number] 05/13/2011 04/07/2016 Obstructive sleep apnea 01/18/2011 12/27/19 [...] Miscellaneous Notes * Telephone Encounter - Talita Caballero, THAD - 07/09/2020 10:11 AM EDT Appt is scheduled 07/16 * Telephone Encounter - Carrie Saini, THAD - 07/07/2020 2:58 PM EDT Unable to LMOM, mailbox full 07/07/20 * Telephone Encounter - Shaina Harris - No Ob/Or, THAD - 07/07/2020 12:00 PM EDT Pcp hd 1wk f/u: Please contact Pt to schedule. Thank you. Order RETURN APPT [IP355 (CPT)] (Order [id number]) Ryland Shaw 07/04/2020 2:00 PM ED to Hosp-Admission Description: 65 year old female Department: [address] Message Patient Name: RYLAND SHAW([id number]) Sex: Female : 1955 PCP: MAIKEL CACERES Center: None Types of orders made on 07/07/2020: IP Post Discharge , Lab, Medications, Non-I/F Lab Order Date:07/07/2020 Ordering User:MANAN CHAVEZ [[id number]] Attending Provider: Danny Hoang MD [[id number]] Authorizing Provider: Manan Chavez DO [[id number]] Department:[address][[id number]] Order Specific Information Order: RETURN APPT [CPT(R): IP355] Order #: [id number]: 1 Priority: Routine Class: Nursing Unit Department (Single Entry) -> Family Practice Appt Needed Within: (Specify # of Days, Weeks, Months) -> 1 Wk Provider -> MAIKEL CACERES Released on: 07/07/2020 11:35 AM Priority: Routine Class: Nursing Unit Department (Single Entry) -> Family Practice Appt Needed Within: (Specify # of Days, Weeks, Months) -> 1 Wk Provider -> MAIKEL CACERES Released on: 07/07/2020 11:35 AM documented in this encounter Plan of Treatment Upcoming Encounters Date Type Specialty Care Team Description 0 Office Visit Hematology Oncology Zelda Kirk CRNP [address] [facility] [place] [address] [phone] 0 Office Visit Family Medicine Maikel Caceres, [address] [place] [address] [phone] 0 Office Visit Wound Care Prakash Honeycutt PA-C [address], [place] [phone] 0 Office Visit Endocrinology Alberta Duque PA-C [address], [place] [phone] 0 Office Visit Gastroenterology Essence Chase PA-C [address] [facility] [place] [address] [phone] Office Visit Pharmacy [facility] [address] [place] [address] [phone] Hospital Encounter Surgery Janis Hatch, [address] [facility] [place] [address] [phone] Surgery Surgery Janis Hatch, [address] [place] [address] [phone] ESOPHAGOGASTRODUODENOSCOPY (EGD), FLEXIBLE, TRANSORAL, DIAGNOSTIC 0 Office Visit Family Medicine Maikel Caceres, DO [address] [facility] [address] [phone] Imaging Radiology 1 Office Visit Gastroenterology Lyssa Stout CRNP [address] [place] [address] [phone] Health Maintenance Due Date Last Done Comments [...] this encounter Implants Implanted Type Area Control Area Operator Device Identifier Shelf Expiration Date Model / Serial / Lot Microtech Sure Clip Implanted:Qty: 2 on 06/03/2020 by Janis Hatch DO at OR [facility] Clip N/A: Colon 04/21/2022 [facility]-F-26-2 35-C-R / / [id number] documented as of this encounter Advance Directives Documents on File Type Date Recorded 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
--- OUTSIDE RECORDS SUMMARY | 2023-05-10 22:12 | External Medical Summary ---
Author Name Unknown Address [facility] [place] [address] Phone Organization K01:[facility] [address] [facility] [place] [address] Laboratory Report Ordering Provider Test Date Status SOTEROCHAVEZ 07/07/2020 07:30:00 Final Observation Date Value Abnormality Reference (Units ) Status BUN 07/07/2020 08:16 11 6-20 (mg/dL) Final Creatinine 07/07/2020 08:16 0.6 0.5-1.0 (mg/ dL) Final E Glom Filt Rate 07/07/2020 08:16 >60.0 >60 Final Performing Location [facility] [address] [facility] [place] [address]
--- OUTSIDE RECORDS SUMMARY | 2023-05-10 22:12 | External Medical Summary ---
Author Name Unknown Address Unknown Organization R:IT USE ONLY!!! Laboratory Report Ordering Provider Test Date Status CITLALLI STEWART 07/06/2020 21:13:00 Final Observation Date Value Abnormality Reference (Units ) Status Glucose Point of Care 07/06/2020 21:21 203 Above high normal 70-120 (mg/dL) Final Performing Location IT USE ONLY!!!
--- OUTSIDE RECORDS SUMMARY | 2023-05-10 22:12 | External Medical Summary ---
Author Name Unknown Address Unknown Organization R:IT USE ONLY!!! Laboratory Report Ordering Provider Test Date Status CITLALLI STEWART 07/07/2020 07:17:00 Final Observation Date Value Abnormality Reference (Units ) Status Glucose Point of Care 07/07/2020 07:30 203 Above high normal 70-120 (mg/dL) Final Performing Location IT USE ONLY!!!
--- OUTSIDE RECORDS SUMMARY | 2023-05-10 22:12 | External Medical Summary | Summary of Care ---
Author Name Unknown Organization [place] [address] Care Team Providers Care Demolition Specialist Name Role Phone Maikel Caceres DO Primary Care Provider Reason for Visit * Reason Onset Date Comments Hospital Follow-Up 07/07/2020 Encounter Details Date Type Department Care Team Description 07/07/2020 Telephone [facility] [address] [place], [place] [phone] Maikel Caceres DO [address] [place], [place] [phone] Hospital Follow-Up Allergies Active Allergy Reactions Severity [...] 120 Vial 11 10/02/2019 Active nystatin (NYSTOP) 727555 UNIT/GM powder Apply topically to affected area [...] SYSTM) MISC Freestyle Xochitl 2 14-day Sensor (432868) (2 sensors=28 day/1-month supply) 2 Each 1 05/26/2020 Active Continuous Blood Gluc Angle Bender (FREESTYLE XOCHITL 2 READER SYSTM) KORTNEY Freestyle Xochitl 2 14-day Angle Bender (302526) 1 Package 0 05/26/2020 Active famotidine (PEPCID) [...] pain 01/24/2012 01/17/2017 Genetic Sleep Disorder Research Other*[id number] 05/13/2011 04/07/2016 Obstructive sleep apnea 01/18/2011 12/27/19 [...] Miscellaneous Notes * Telephone Encounter - Carrie Saini, THDA - 07/07/2020 2:58 PM EDT Unable to LMOM, mailbox full 07/07/20 * Telephone Encounter - Shaina Harris - No Ob/Or, THAD - 07/07/2020 12:00 PM EDT Pcp hd 1wk f/u: Please contact Pt to schedule. Thank you. Order RETURN APPT [IP355 (CPT)] (Order [id number]) Ryland Shaw 07/04/2020 2:00 PM ED to Hosp-Admission Description: 65 year old female Department: [address] Message Patient Name: RYLAND SHAW([id number]) Sex: Female : 1955 PCP: MAIKEL CACERES Center: None Types of orders made on 07/07/2020: IP Post Discharge , Lab, Medications, Non-I/F Lab Order Date:07/07/2020 Ordering User:MANAN CHAVEZ [[id number]] Attending Provider: Danny Hoang MD [[id number]] Authorizing Provider: Manan Chavez DO [[id number]] Department:[address][[id number]] Order Specific Information Order: RETURN APPT [CPT(R): IP355] Order #: [id number]: 1 Priority: Routine Class: Nursing Unit Department [...] Visit Hematology Oncology Zelda Kirk CRNP [address] [facility] [place] [address] [phone] Office Visit Family Medicine Maikel Caceres, DO [address] [place] [address] [phone] 0 Office Visit Wound Care Prakash Honeycutt PA-C [address] [place], [place] [address] 0 Office Visit Endocrinology Alberta Duque PA-C [address] [place], [place] [address] 0 Office Visit Gastroenterology Essence Chase PA-C [address] [place] [address] [phone] 0 Office Visit Pharmacy [facility] [address] [place] [address] [phone] Hospital Encounter Surgery Janis Hatch DO [address] [place] [address] [phone] Surgery Surgery Janis Hatch, DO [address] [address] [phone] ESOPHAGOGASTRODUODENOSCOPY (EGD), FLEXIBLE, TRANSORAL, DIAGNOSTIC 0 Office Visit Family Medicine Maikel Caceres, DO [address] [facility] [address] 0 Imaging Radiology 1 Office Visit Gastroenterology Lyssa Stout CRNP 132 [facility] [place] [address] [phone] Health Maintenance Due Date Last Done Comments [...] of this encounter Implants Implanted Type Area Maintenance Aide Device Identifier Shelf Expiration Date Model / Serial / Lot Microtech Sure Clip Implanted:Qty: 2 on 06/03/2020 by Janis Hatch DO at OR [facility] Clip N/A: Colon 04/21/2022 [facility]-F-26-2 35-C-R / / [id number] documented as of this encounter Advance Directives Documents on File Type Date Recorded 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
--- OUTSIDE RECORDS SUMMARY | 2023-05-10 22:12 | External Medical Summary ---
Author Name Unknown Address [address] [facility] [place] [address] Phone Organization K01:[facility] [address] [place] [id number] Laboratory Report Ordering Provider Test Date Status SCOTT BEY 07/07/2020 07:30:00 Final Observation Date Value Abnormality Reference (Units) Status WBC, Total 07/07/2020 08:58 2.40 Below low normal 4.00-10.80 (K/uL) Final RBC 07/07/2020 08:58 2.84 Below low normal 3.85-5.15 (M/uL) Final Hemoglobin 07/07/2020 08:58 7.6 Below low normal 12.0-15.3 (g/dL) Final HCT 07/07/2020 08:58 25.1 Below low normal 36.0-45.2 (%) Final MCV 07/07/2020 08:58 88.4 81.5-97.5 (fL) Final MCH 07/07/2020 08:58 26.8 Below low normal 27.0-34.0 (pg) Final MCHC 07/07/2020 08:58 30.3 Below low normal 32.0-36.0 (g/dL) Final RDW 07/07/2020 08:58 17.2 Above high normal 11.5-15.5 (%) Final Platelets 07/07/2020 08:58 75 Below low normal 140-400 (K/uL) Final MPV 07/07/2020 08:58 NO RESULT - ABNORMAL PLATELET DISTRIBUTION 6.6-11.1 (fL) Final Nucleated erythrocytes/100 leukocytes [Ratio] in Blood by Automated count 07/07/2020 08:58 0 0 (/100 WBCs) Final Performing Location [facility] [address] [facility] [address]
--- OUTSIDE RECORDS SUMMARY | 2023-05-10 22:12 | External Medical Summary ---
Author Name Unknown Address Unknown Organization R:IT USE ONLY!!! Laboratory Report Ordering Provider Test Date Status CITLALLI STEWART 07/07/2020 10:30:00 Final Observation Date Value Abnormality Reference (Units ) Status Glucose Point of Care 07/07/2020 11:07 250 Above high normal 70-120 (mg/dL) Final Performing Location IT USE ONLY!!!
--- OUTSIDE RECORDS SUMMARY | 2023-05-10 22:13 | External Medical Summary ---
Author Name Unknown Address Unknown Organization R:IT USE ONLY!!! Laboratory Report Ordering Provider Test Date Status CITLALLI STEWART 07/05/2020 21:26:00 Final Observation Date Value Abnormality Reference (Units ) Status Glucose Point of Care 07/05/2020 22:09 218 Above high normal 70-120 (mg/dL) Final Performing Location IT USE ONLY!!!
--- OUTSIDE RECORDS SUMMARY | 2023-05-10 22:13 | External Medical Summary ---
Author Name Unknown Address [facility] N [facility] [place] [address] Phone Organization K01:[place] [address] [address] [facility] [place] [address] Laboratory Report Ordering Provider Test Date Status GABRIELE MARC 07/06/2020 06:30:00 Final Observation Date Value Abnormality Reference (Units ) Status ASSOCIATED ORDER 07/06/2020 06:41 See Type and Screen for units Final Performing Location [address] [address]
--- OUTSIDE RECORDS SUMMARY | 2023-05-10 22:13 | External Medical Summary ---
Author Name Unknown Address Formerly named [facility] N [facility] [place] [address] Phone Organization K01:[place] [address] [address] [place] [id number] Laboratory Report Ordering Provider Test Date Status SOTEROSCOTT BRADY 07/06/2020 05:24:00 Final Observation Date Value Abnormality Reference (Units ) Status HbA1C 07/06/2020 07:08 9.9 Above high normal 4.0-5 .6 (%) Final Performing Location [facility] [address] [facility] [address]
--- OUTSIDE RECORDS SUMMARY | 2023-05-10 22:13 | External Medical Summary ---
Author Name Unknown Address [facility] N [facility] [place] [address] Phone Organization K01:[place] [address] [address] [facility] [place] [address] Laboratory Report Ordering Provider Test Date Status CITLALLI STEWART 07/06/2020 10:03:00 Final Observation Date Value Abnormality Reference (Units ) Status Vancomycin, trough 07/06/2020 10:50 11.9 10-20 (ug/mL) Final Time last dose of Dose 07/06/2020 10:21 NOT PROVIDED Final Date last dose 07/06/2020 10:21 NOT PROVIDED Final Performing Location [address] [address]
--- OUTSIDE RECORDS SUMMARY | 2023-05-10 22:13 | External Medical Summary ---
Author Name Unknown Address [address] [facility] [place] [address] Phone Organization K01:[facility] [address] [facility] [place] [address] Laboratory Report Ordering Provider Test Date Status SCOTT BEY 07/06/2020 05:24:00 Final Observation Date Value Abnormality Reference (Units ) Status Source 07/06/2020 03:03 BLOOD Final comment 07/06/2020 03:03 PERIPHERAL Final Bacteria identified in Unspecified specimen by Culture 07/12/2020 03:08 NO GROWTH Final REPORT STATUS 07/12/2020 03:08 07/12/2020 FINAL Final Performing Location [facility] [address] [facility] [place] [address]
--- OUTSIDE RECORDS SUMMARY | 2023-05-10 22:13 | External Medical Summary ---
Author Name Unknown Address [facility] N [facility] [place] [address] Phone Organization K01:[facility] [address] [facility] [address] Laboratory Report Ordering Provider Test Date Status GABRIELE MARC 07/06/2020 16:08:00 Final Observation Date Value Abnormality Reference (Units) Status WBC, Total 07/06/2020 17:09 2.42 Below low normal 4.00-10.80 (K/uL) Final RBC 07/06/2020 17:09 2.88 Below low normal 3.85-5.15 (M/uL) Final Hemoglobin 07/06/2020 17:09 7.7 Below low normal 12.0-15.3 (g/dL) Final HCT 07/06/2020 17:09 26.0 Below low normal 36.0-45.2 (%) Final MCV 07/06/2020 17:09 90.3 81.5-97.5 (fL) Final MCH 07/06/2020 17:09 26.7 Below low normal 27.0-34.0 (pg) Final MCHC 07/06/2020 17:09 29.6 Below low normal 32.0-36.0 (g/dL) Final RDW 07/06/2020 17:09 17.0 Above high normal 11.5-15.5 (%) Final Platelets 07/06/2020 17:09 75 Below low normal 140-400 (K/uL) Final MPV 07/06/2020 17:09 NO RESULT - ABNORMAL PLATELET DISTRIBUTION 6.6-11.1 (fL) Final Nucleated erythrocytes/100 leukocytes [Ratio] in Blood by Automated count 07/06/2020 17:09 0 0 (/100 WBCs) Final Performing Location [place] [address] [address] [facility] [address]
--- OUTSIDE RECORDS SUMMARY | 2023-05-10 22:13 | External Medical Summary ---
Author Name Unknown Address Unknown Organization R:IT USE ONLY!!! Laboratory Report Ordering Provider Test Date Status CITLALLI STEWART 07/06/2020 05:28:00 Final Observation Date Value Abnormality Reference (Units ) Status Glucose Point of Care 07/06/2020 09:43 142 Above high normal 70-120 (mg/dL) Final Performing Location IT USE ONLY!!!
--- OUTSIDE RECORDS SUMMARY | 2023-05-10 22:13 | External Medical Summary ---
Author Name Unknown Address [facility] [address] [place] [id number] Phone Organization K01:[place] [id number] Laboratory Report Ordering Provider Test Date Status SCOTT BEY 07/06/2020 05:24:00 Final Observation Date Value Abnormality Reference (Units ) Status WBC, Total 07/06/2020 06:23 2.49 Below low normal 4.00- 10.80 (K/uL) Final RBC 07/06/2020 06:23 2.43 Below low normal 3.85-5 .15 (M/uL) Final Hemoglobin 07/06/2020 06:23 6.4 Below lower panic limi ts 12.0-15.3 (g/dL) Final Performing Location [address] [address]
--- OUTSIDE RECORDS SUMMARY | 2023-05-10 22:13 | External Medical Summary ---
Author Name Unknown Address Unknown Organization R:IT USE ONLY!!! Laboratory Report Ordering Provider Test Date Status CITLALLI STEWART 07/06/2020 16:07:00 Final Observation Date Value Abnormality Reference (Units ) Status Glucose Point of Care 07/06/2020 16:13 150 Above high normal 70-120 (mg/dL) Final Performing Location IT USE ONLY!!!
--- OUTSIDE RECORDS SUMMARY | 2023-05-10 22:13 | External Medical Summary ---
Author Name Unknown Address [address] [facility] [place] [address] Phone Organization K01:[facility] [address] [facility] [place] [address] Laboratory Report Ordering Provider Test Date Status SOTEROCHAVEZ 07/06/2020 05:24:00 Final Observation Date Value Abnormality Reference (Units ) Status BUN 07/06/2020 06:33 12 6-20 (mg/dL) Final Creatinine 07/06/2020 06:33 0.6 0.5-1.0 (mg/ dL) Final E Glom Filt Rate 07/06/2020 06:33 >60.0 >60 Final Performing Location [facility] [address] [facility] [place] [address]
--- OUTSIDE RECORDS SUMMARY | 2023-05-10 22:13 | External Medical Summary ---
Author Name Unknown Address [address] [facility] [place] [address] Phone Organization K01:[facility] [address] [facility] [place] [address] Laboratory Report Ordering Provider Test Date Status SCOTT BEY 07/06/2020 05:32:00 Final Observation Date Value Abnormality Reference (Units ) Status Source 07/06/2020 03:03 BLOOD Final comment 07/06/2020 03:03 PERIPHERAL Final Bacteria identified in Unspecified specimen by Culture 07/12/2020 03:08 NO GROWTH Final REPORT STATUS 07/12/2020 03:08 07/12/2020 FINAL Final Performing Location [facility] [address] [facility] [place] [address]
--- OUTSIDE RECORDS SUMMARY | 2023-05-10 22:13 | External Medical Summary ---
Author Name Unknown Address Unknown Organization R:IT USE ONLY!!! Laboratory Report Ordering Provider Test Date Status CITLALLI STEWART 07/06/2020 11:00:00 Final Observation Date Value Abnormality Reference (Units ) Status Glucose Point of Care 07/06/2020 11:10 213 Above high normal 70-120 (mg/dL) Final Performing Location IT USE ONLY!!!
--- OUTSIDE RECORDS SUMMARY | 2023-05-10 22:14 | External Medical Summary ---
Author Name Unknown Address Unknown Organization R:IT USE ONLY!!! Laboratory Report Ordering Provider Test Date Status CITLALLI STEWART 07/04/2020 22:34:00 Final Observation Date Value Abnormality Reference (Units ) Status Glucose Point of Care 07/04/2020 22:36 208 Above high normal 70-120 (mg/dL) Final Performing Location IT USE ONLY!!!
--- OUTSIDE RECORDS SUMMARY | 2023-05-10 22:14 | External Medical Summary ---
Author Name Unknown Address [facility] N [facility] [place] [address] Phone Organization K01:[facility] [address] [facility] [place] [address] Laboratory Report Ordering Provider Test Date Status NAWAF LOPEZ 07/04/2020 14:58:00 Final Observation Date Value Abnormality Reference (Units) Status Source 07/04/2020 14:03 BLOOD Final comment 07/04/2020 14:03 PERIPHERAL Final Bacteria identified in Unspecified specimen by Culture 07/10/2020 15:05 ANAEROBIC BOTTLE STAPHYLOCOCCUS HOMINIS Abnormal Final Bacteria identified in Unspecified specimen by Culture 07/10/2020 15:05 AEROBIC BOTTLE NO GROWTH Final REPORT STATUS 07/11/2020 08:10 07/11/2020 FINAL Final Bacteria identified in Isolate by Culture 07/07/2020 09:00 STAPHYLOCOCCUS HOMINIS Abnormal Final Performing Location [facility] [address] [facility] [place] [address]
--- OUTSIDE RECORDS SUMMARY | 2023-05-10 22:14 | External Medical Summary ---
Author Name Unknown Address [facility] [place] [address] Phone Organization K01:[place] [id number] Laboratory Report Ordering Provider Test Date Status GABRIELE MARC 07/05/2020 09:11:00 Final Observation Date Value Abnormality Reference (Units ) Status PT 07/05/2020 10:21 15.8 Above high normal 11.5- 14.6 (seconds) Final INR 07/05/2020 10:21 1.24 Above high normal 0.84- 1.14 Final Performing Location [address] [address]
--- OUTSIDE RECORDS SUMMARY | 2023-05-10 22:14 | External Medical Summary ---
Author Name Unknown Address [facility] N [facility] [place] [address] Phone Organization K01:[facility] [address] [facility] [address] Laboratory Report Ordering Provider Test Date Status GABRIELE MARC 07/05/2020 09:11:00 Final Observation Date Value Abnormality Reference (Units) Status WBC, Total 07/05/2020 13:05 2.77 Below low normal 4.00-10.80 (K/uL) Final RBC 07/05/2020 13:05 2.66 Below low normal 3.85-5.15 (M/uL) Final Hemoglobin 07/05/2020 13:05 7.0 Below lower panic limits 12.0-15.3 (g/dL) Final HCT 07/05/2020 13:05 25.6 Below low normal 36.0-45.2 (%) Final MCV 07/05/2020 13:05 96.2 81.5-97.5 (fL) Final MCH 07/05/2020 13:05 26.3 Below low normal 27.0-34.0 (pg) Final MCHC 07/05/2020 13:05 27.3 Below low normal 32.0-36.0 (g/dL) Final RDW 07/05/2020 13:05 17.0 Above high normal 11.5-15.5 (%) Final Platelets 07/05/2020 13:05 84 Below low normal 140-400 (K/uL) Final MPV 07/05/2020 13:05 NO RESULT - ABNORMAL PLATELET DISTRIBUTION 6.6-11.1 (fL) Final Nucleated erythrocytes/100 leukocytes [Ratio] in Blood by Automated count 07/05/2020 13:05 0 0 (/100 WBCs) Final Performing Location [place] [address] [address] [facility] [address]
--- OUTSIDE RECORDS SUMMARY | 2023-05-10 22:14 | External Medical Summary ---
Author Name Unknown Address [address] [place] [address] Phone Organization K01:[place] [id number] Laboratory Report Ordering Provider Test Date Status NAWAF LOPEZ ZAK 07/04/2020 14:51:00 Final Observation Date Value Abnormality Reference (Units ) Status Procalcitonin [Mass/volume] in Serum or Plasma by Immunoassay 07/04/2020 15:40 0.10 Above high normal <0.1 (ng/mL) Final Annotation Comment 07/04/2020 15:40 Final Performing Location [address] [address]
--- OUTSIDE RECORDS SUMMARY | 2023-05-10 22:14 | External Medical Summary ---
Author Name Unknown Address [address] [facility] [place] [address] Phone Organization K01:[facility] [address] [place] [id number] Laboratory Report Ordering Provider Test Date Status GABRIELE MARC 07/05/2020 09:11:00 Final Observation Date Value Abnormality Reference (Units ) Status Iron 07/05/2020 19:12 23 Below low normal 33-151 (ug/dL) Final Iron-binding capacity 07/05/2020 19:12 368 250-425 (ug/dL) Final Transferrin Sat % 07/05/2020 19:12 6 Below low normal 15-55 (%) Final Performing Location [facility] [address] [facility] [address]
--- OUTSIDE RECORDS SUMMARY | 2023-05-10 22:14 | External Medical Summary ---
Author Name Unknown Address Unknown Organization R:IT USE ONLY!!! Laboratory Report Ordering Provider Test Date Status CITLALLI STEWART 07/05/2020 06:25:00 Final Observation Date Value Abnormality Reference (Units ) Status Glucose Point of Care 07/05/2020 06:39 145 Above high normal 70-120 (mg/dL) Final Performing Location IT USE ONLY!!!
--- OUTSIDE RECORDS SUMMARY | 2023-05-10 22:14 | External Medical Summary ---
Author Name Unknown Address [facility] N [place] [id number] Phone Organization K01:[facility] [address] [place] [id number] Laboratory Report Ordering Provider Test Date Status GABRIELE MARC 07/05/2020 09:11:00 Final Observation Date Value Abnormality Reference (Units ) Status BUN 07/05/2020 10:29 12 6-20 (mg/dL) Final Creatinine 07/05/2020 10:29 0.6 0.5-1.0 (mg/ dL) Final E Glom Filt Rate 07/05/2020 10:29 >60.0 >60 Final Performing Location [facility] [address] [facility] [address]
--- OUTSIDE RECORDS SUMMARY | 2023-05-10 22:14 | External Medical Summary ---
Author Name Unknown Address [facility] N [facility] [place] [address] Phone Organization K01:[place] [address] [address] [facility] [place] [address] Laboratory Report Ordering Provider Test Date Status SCOTT BEY 07/05/2020 09:11:00 Final Observation Date Value Abnormality Reference (Units) Status Specimen expiration date of Blood 07/05/2020 09:34 07/08/2020 Final ABO and Rh (D) 07/05/2020 10:12 A POSITIVE Final Antibody Screen 07/05/2020 10:12 NEGATIVE Final Unit Number 07/06/2020 06:43 [id number] Final Blood Component Type 07/06/2020 06:43 RBC LEUKOREDUCED Final Blood Unit ID 07/06/2020 06:43 00 Final Status of Unit 07/07/2020 09:11 TRANSFUSED Final Crossmatch result 07/06/2020 06:43 ELECTRONICALLY COMPATIBLE Final Performing Location [address] [place] [address]
--- OUTSIDE RECORDS SUMMARY | 2023-05-10 22:14 | External Medical Summary ---
Author Name Unknown Address [facility] N [facility] Phone Organization K01:[place] [address] [address] [place] [id number] Laboratory Report Ordering Provider Test Date Status NAWAF LOPEZ 07/04/2020 14:51:00 Final Observation Date Value Abnormality Reference (Units ) Status Troponin T 07/04/2020 15:40 7 0-14 (ng/L) Final Performing Location [address] [address]
--- OUTSIDE RECORDS SUMMARY | 2023-05-10 22:14 | External Medical Summary ---
Author Name Unknown Address Unknown Organization R:IT USE ONLY!!! Laboratory Report Ordering Provider Test Date Status CITLALLI STEWART 07/05/2020 11:04:00 Final Observation Date Value Abnormality Reference (Units ) Status Glucose Point of Care 07/05/2020 11:24 227 Above high normal 70-120 (mg/dL) Final Performing Location IT USE ONLY!!!
--- OUTSIDE RECORDS SUMMARY | 2023-05-10 22:14 | External Medical Summary ---
Author Name Unknown Address [facility] [place] [address] Phone Organization K01:[place] [address] Laboratory Report Ordering Provider Test Date Status NAWAF LOPEZ 07/04/2020 15:15:00 Final Observation Date Value Abnormality Reference (Units) Status Source 07/04/2020 15:19 CATHETERIZED URINE Final Bacteria identified in Unspecified specimen by Culture 07/05/2020 15:19 10,000 TO 100,000 COLONIES/ML YEAST Abnormal Final Bacteria identified in Unspecified specimen by Culture 07/05/2020 15:19 LESS THAN 10,000 COLONIES/ML MIXED NORMAL MAYRA Final REPORT STATUS 07/06/2020 14:08 07/06/2020 FINAL Final Performing Location [place] [id number]
--- OUTSIDE RECORDS SUMMARY | 2023-05-10 22:14 | External Medical Summary ---
Author Name Unknown Address [address] [place] [address] Phone Organization K01:[facility] [address] [place] [id number] Laboratory Report Ordering Provider Test Date Status NAWAF LOPEZ 07/04/2020 15:15:00 Final Observation Date Value Abnormality Reference (Units) Status Color of Urine by Auto 07/04/2020 16:15 YELLOW YEL Final Clarity, Urine 07/04/2020 16:15 SLIGHTLY CLOUDY Abnormal CLEAR Final Glucose [Mass/volume] in Urine by Automated test strip 07/04/2020 16:15 1000 Abnormal NEG (mg/dL) Final Bilirubin [Presence] in Urine by Automated test strip 07/04/2020 16:15 NEGATIVE NEG Final Ketones [Mass/volume] in Urine by Automated test strip 07/04/2020 16:15 NEGATIVE NEG (mg/dL) Final Specific gravity, Urine 07/04/2020 16:15 1.040 Above high normal 1.003-1.030 Final Hemoglobin [Presence] in Urine by Automated test strip 07/04/2020 16:15 MODERATE Abnormal NEG Final pH, Urine 07/04/2020 16:15 6.0 5.0-7.5 (units) Final Protein [Mass/volume] in Urine by Automated test strip 07/04/2020 16:15 30 Abnormal NEG (mg/dL) Final Urobilinogen [Mass/volume] in Urine by Automated test strip 07/04/2020 16:15 2 Abnormal NORM (mg/dL) Final Nitrite [Presence] in Urine by Automated test strip 07/04/2020 16:15 NEGATIVE NEG Final Leukocyte esterase [Presence] in Urine by Automated test strip 07/04/2020 16:15 SMALL Abnormal NEG Final Bacteria [#/area] in Urine by Automated count 07/04/2020 16:15 0-25 [id number] (/HPF) Final Leukocytes [#/area] in Urine sediment by Automated count 07/04/2020 16:15 10-19 Abnormal U02 (/HPF) Final Erythrocytes [#/area] in Urine sediment by Automated count 07/04/2020 16:15 3-5 Abnormal U02 (/HPF) Final Yeast.budding [Presence] in Urine sediment 07/04/2020 16:15 PRESENT Abnormal NONE (/HPF) Final Hyaline casts [#/area] in Urine sediment by Automated count 07/04/2020 16:15 1-4 UM1 (/LPF) Final Performing Location [facility] [address] [facility] [address]
--- OUTSIDE RECORDS SUMMARY | 2023-05-10 22:14 | External Medical Summary ---
Author Name Unknown Address [facility] N [facility]22 Phone Organization K01:[place] [id number] Laboratory Report Ordering Provider Test Date Status GIOVANNA MARCCHRISTOPHER 07/05/2020 09:11:00 Final Observation Date Value Abnormality Reference (Units ) Status Ferritin 07/05/2020 21:21 19.2 13-150 (ng/mL ) Final Performing Location [address] [address]
--- OUTSIDE RECORDS SUMMARY | 2023-05-10 22:14 | External Medical Summary ---
Author Name Unknown Address [facility] N [facility] [place] [address] Phone Organization K01:[facility] [address] [facility] [place] [address] Laboratory Report Ordering Provider Test Date Status NAWAF LOPEZ 07/04/2020 14:51:00 Final Observation Date Value Abnormality Reference (Units ) Status Source 07/04/2020 14:03 BLOOD Final comment 07/04/2020 14:03 PERIPHERAL Final Bacteria identified in Unspecified specimen by Culture 07/10/2020 03:20 NO GROWTH Final REPORT STATUS 07/10/2020 03:20 07/10/2020 FINAL Final Performing Location [facility] [address] [place] [address]
--- OUTSIDE RECORDS SUMMARY | 2023-05-10 22:14 | External Medical Summary ---
Author Name Unknown Address [address] [place] [address] Phone Organization K01:[place] [id number] Laboratory Report Ordering Provider Test Date Status GABRIELE MARC 07/05/2020 09:11:00 Final Observation Date Value Abnormality Reference (Units ) Status Retic, % (auto) 07/05/2020 18:12 2.25 Above high normal 0.80-1.90 (%) Final Reticulocytes, Absolute 07/05/2020 18:12 58.5 31.3-100.1 (K/uL) Final Reticulocyte fraction, immature 07/05/2020 18:12 25.5 Above high normal 2.5-20.6 (%) Final Reticulocyte HGB 07/05/2020 18:12 20.3 Below low normal 29.7-37.4 (pg) Final Performing Location [address] [address]
--- OUTSIDE RECORDS SUMMARY | 2023-05-10 22:14 | External Medical Summary ---
Author Name Unknown Address Unknown Organization R:IT USE ONLY!!! Laboratory Report Ordering Provider Test Date Status CITLALLI STEWART 07/04/2020 18:50:00 Final Observation Date Value Abnormality Reference (Units ) Status Glucose Point of Care 07/06/2020 09:43 212 Above high normal 70-120 (mg/dL) Final Performing Location IT USE ONLY!!!
--- OUTSIDE RECORDS SUMMARY | 2023-05-10 22:14 | External Medical Summary ---
Author Name Unknown Address Unknown Organization R:IT USE ONLY!!! Laboratory Report Ordering Provider Test Date Status CITLALLI STEWART 07/05/2020 05:07:00 Final Observation Date Value Abnormality Reference (Units ) Status Glucose Point of Care 07/06/2020 09:42 131 Above high normal 70-120 (mg/dL) Final Performing Location IT USE ONLY!!!
--- OUTSIDE RECORDS SUMMARY | 2023-05-10 22:14 | External Medical Summary ---
Author Name Unknown Address Unknown Organization R:IT USE ONLY!!! Laboratory Report Ordering Provider Test Date Status CITLALLI STEWART 07/05/2020 16:23:00 Final Observation Date Value Abnormality Reference (Units ) Status Glucose Point of Care 07/05/2020 16:26 265 Above high normal 70-120 (mg/dL) Final Performing Location IT USE ONLY!!!
--- OUTSIDE RECORDS SUMMARY | 2023-05-10 22:15 | External Medical Summary ---
Author Name Unknown Address [facility] [place] [address] Phone Organization K01:[place] [address] [address] [place] [id number] Laboratory Report Ordering Provider Test Date Status NAWAF LOPEZ 07/04/2020 14:51:00 Final Observation Date Value Abnormality Reference (Units ) Status Lactic Acid 07/04/2020 15:32 1.7 0.4-2.0 (mm ol/L) Final Performing Location [place] [id number]
--- OUTSIDE RECORDS SUMMARY | 2023-05-10 22:15 | External Medical Summary | Summary of Care ---
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 documented as of this encounter (statuses as of 07/03/2020) Medications Medication Sig Dispensed Refills Start Date End Date Status CENTRUM SILVER PO TABS 1 tab daily 1 Tab 0 05/25/2012 Active vitamin c [...] 120 Vial 11 10/02/2019 Active nystatin (NYSTOP) 673370 UNIT/GM powder Apply topically to affected area [...] 3 11/19/2019 Active atorvaSTATin (LIPITOR) 40 MG TabletIndications:Dy slipidemia, goal LDL below 70 TAKE 1 TABLET BY MOUTH EVERY NIGHT AT BEDTIME 90 Tab 1 12/30/2019 Active furosemide (LASIX) 20 MG TabletIndications:Lo calized edema,Venous stasis dermatitis of both lower extremities TAKE 1 TABLET BY MOUTH ONCE DAILY NEEDED FOR EDEMA 30 Tab 5 01/28/2020 Active levothyroxine (LEVOXYL) 200 MCG Tablet Take 1 Tab by mouth daily. 90 Tab 3 02/20/2020 Active pantoprazole (PROTONIX) 20 MG TBECIndications:Rohit roesophageal reflux disease, esophagitis presence not specified,NAFLD (nonalcoholic fatty liver disease),Other cirrhosis of liver (HCC) TAKE 2 TABLETS BY MOUTH ONCE DAILY 180 Tab 1 02/26/2020 Active oxybutynin (DITROPAN) 5 MG Tablet TAKE 1 TABLET BY MOUTH TWICE DAILY 60 Tab 5 03/27/2020 Active tamsulosin (FLOMAX) 0.4 MG Capsule TAKE 1 CAPSULE BY MOUTH ONCE DAILY 90 Cap 1 04/22/2020 Active linaCLOtide (LINZESS) 290 MCG Capsule Take 1 Cap by mouth daily before breakfast. 90 Cap 3 05/04/2020 Active PEG 8526-ZRj-GpGbx-NaCl- NaSulf (GOLYTELY) 227.1 g PACK Drink 2 liters two days before colonoscopy and 2 liters the day before colonoscopy 1 Each 0 05/04/2020 Active MetFORMIN (GLUCOPHAGE) 1000 MG TabletIndications:Ty pe 2 diabetes mellitus with hemoglobin A1c goal of less than 7.0% (HCC) Take 1 Tab by mouth 2 times a day. 180 Tab 1 2020 Active nadolol (CORGARD) 20 MG Tablet TAKE [...] WITH FOOD 90 Tab 3 05/25/2020 Active Clindamycin HCl 300 MG Capsule Take 2 Caps by mouth 3 times a day. 40 Cap 0 05/26/2020 Active silver sulfadiazine (SILVADENE) 1 % cream Apply topically to affected area daily. Apply to right great toe 50 g 0 05/26/2020 Active Continuous Blood Gluc Sensor (FREESTYLE XOCHITL 2 SENSOR SYSTM) MISC Freestyle Xochitl 2 14-day Sensor (482980) (2 sensors=28 day/1-month supply) 2 Each 1 05/26/2020 Active Continuous Blood Gluc [employer] (FREESTYLE XOCHITL 2 READER SYSTM) KORTNEY Freestyle Xochitl 2 14-day [employer] (905240) 1 Package 0 05/26/2020 Active famotidine (PEPCID) 20 MG Tablet Take 1 Tab by mouth every night at bedtime. 34 Tab 0 05/29/2020 Active Sucralfate 1 GM/10ML Oral Suspension (Carafate) Take 10 mL by mouth 2 times a day. Use twice daily for 4 weeks 600 mL 0 06/05/2020 Active Cephalexin 500 MG Oral Capsule (KEFLEX) Take 1 Cap by mouth 2 times a day. 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 (5 years old or older No 05/25/2020 documented as of this encounter Miscellaneous Notes * Telephone Encounter - Kayla Milian DO - 07/03/2020 10:37 PM EDT Called patient to inform about positive blood culture. Patient reports still feeling feverish with chills and some lightheadedness. She reported continued body aches and overall general malaise. I recommended patient return for re- evaluation. Patient is agreeable to returning for care. documented in this encounter Plan of Treatment Upcoming Encounters Date Type Specialty Care Team Description 0 Office Visit Family Medicine Rajwinder Carter DO [address] [facility] [place] [address] [phone] Office Visit Hematology Oncology Zelda Kirk CRNP [address] [place] [address] [phone] Office Visit Wound Care Prakash Honeycutt PA-C [address] [place], [place] [phone] 0 Office Visit Endocrinology Alberta Duque PA-C [address] [place] [address] 0 Office Visit Gastroenterology Essence Chase PA-C [address] [facility] [place] [address] [phone] Office Visit [facility] [address] [place] [address] [phone] Hospital Encounter Surgery Janis Hatch, DO [address] [facility] [place] [address] [phone] Surgery Surgery Janis Hatch, DO [address] [facility] [place] [address] [phone] ESOPHAGOGASTRODUODENOSCOPY (EGD), FLEXIBLE, TRANSORAL, DIAGNOSTIC 0 Office Visit Family Medicine Alexandra Caceres, DO [address] [facility], [place] [id number] 0 Imaging Radiology 1 Office Visit [facility]enterology Lyssa Stout CRNP [address] [facility] [address] [phone] Health Maintenance Due Date Last Done Comments DIABETES-EYE EXAM 06/12/2019 06/12/2018, , 06/12/2018, Additional history exists DIABETES-URINE MICROALBUMIN EVERY 12 MONTHS 01/12/2020 01/11/2019, 08/24/2018, 07/19/2018, Additional history exists DXA-SCREENING EVERY 7 YRS-USE SMARTSET# 3348 TO ORDER 2020 Pneumococcal Vaccine: 65+ Years (2 of 2 - PPSV23) 2020 05/02/2019, 06/01/2010 Zoster Vaccines (3 of 3) 06/23/2020 04/28/2020, 11/11 BREAST CANCER SCREENING DISCUSSION YEARLY AGES 40-75 09/02/2020 09/02/2019, 04/04/2018, 01/18/2017, Additional history exists DIABETES-FOOT EXAM 11/06/2020 11/06/2019, 0 01/09/2019, 12/26/2017, Additional history exists DIABETES-HGBA1C EVERY 6 MONTHS 11/23/2020 05/26/2020, 04/28/2020, 02/21/2020, Additional history exists Yearly B-12 04/25/2021 04/25/2020, [...] of this encounter Implants Implanted Type Area Election Assistant Device Identifier Shelf Expiration Date Model / Serial / Lot [employer] Sure Clip Implanted:Qty: 2 on 06/03/2020 by Janis Hatch DO at OR [facility] Clip N/A: Colon 04/21/2022 [facility]-F-[id number] 35-C-R / / [id number] documented as of this encounter Advance Directives Documents on File Type Date 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 is the patient's healthcare proxy. Discussion of Advance Directives occurred with: Patient Does the patient have a Living Will? No Does the patient have Health Care Power of Attor elsie? No Healthcare Agents on File Name Relationship Healthcare Agent [facility] Communication Syed Bustos Spouse Emergency Contact
--- OUTSIDE RECORDS SUMMARY | 2023-05-10 22:15 | External Medical Summary ---
Author Name Unknown Address [address] [place] [phone] Phone Organization K01:[facility] [address] [place] [id number] Laboratory Report Ordering Provider Test Date Status JESSICANAWAF BRADLEY ZAK 07/04/2020 14:51:00 Final Observation Date Value Abnormality Reference (Units ) Status BUN 07/04/2020 15:40 13 6-20 (mg/dL) Final Creatinine 07/04/2020 15:40 0.6 0.5-1.0 (mg/ dL) Final E Glom Filt Rate 07/04/2020 15:40 >60.0 >60 Final Performing Location [facility] [address] [facility] [address]
--- OUTSIDE RECORDS SUMMARY | 2023-05-10 22:15 | External Medical Summary ---
Author Name Unknown Address [address] [facility] [place] [address] Phone Organization [facility] [address] [facility] [address] Laboratory Report Ordering Provider Test Date Status NAWAF LOPEZNP 07/04/2020 14:51:00 Final Observation Date Value Abnormality Reference (Units ) Status WBC, Total 07/04/2020 15:14 2.40 Below low normal 4.00-10.80 (K/uL) Final RBC 07/04/2020 15:14 2.68 Below low normal 3.85-5.15 (M/uL) Final Hemoglobin 07/04/2020 15:14 7.1 Below low normal 12.0-15.3 (g/dL) Final HCT 07/04/2020 15:14 25.4 Below low normal 36.0-45.2 (%) Final MCV 07/04/2020 15:14 94.8 81.5-97.5 (fL) Final MCH 07/04/2020 15:14 26.5 Below low normal 27.0-34.0 (pg) Final MCHC 07/04/2020 15:14 28.0 Below low normal 32.0-36.0 (g/dL) Final RDW 07/04/2020 15:14 16.6 Above high normal 11.5-15.5 (%) Final Platelets 07/04/2020 15:14 79 Below low normal 140-400 (K/uL) Final MPV 07/04/2020 15:14 12.5 Above high normal 6.6-11.1 (fL) Final Nucleated erythrocytes/100 leukocytes [Ratio] in Blood by Automated count 07/04/2020 15:14 0 0 (/100 WBCs) Final Segs 07/04/2020 15:49 53.4 40-75 (%) Final Lymphs % 07/04/2020 15:49 27.9 18-42 (%) Final Monos 07/04/2020 15:49 10.8 1-11 (%) Final Eosinophils 07/04/2020 15:49 7.1 Above high normal 0-6 (%) Final Basos 07/04/2020 15:49 0.8 0-2 (%) Final Immature Granulocyte, Percent 07/04/2020 15:49 0 0-2 (%) Final Neutrophils [#/volume] in Blood 07/04/2020 15:49 1.28 Below low normal 1.8-7.7 (K/uL) Final Lymphs, absolute 07/04/2020 15:49 0.67 Below low normal 1.0-4.8 (K/uL) Final Monos, Abs 07/04/2020 15:49 0.26 0.0-1.1 (K/uL) Final Eos, Abs 07/04/2020 15:49 0.17 0.0-0.7 (K/uL) Final Basos, Abs 07/04/2020 15:49 0.02 0.0-0.2 (K/uL) Final Performing Location [facility] [address] [facility] [address]
--- OUTSIDE RECORDS SUMMARY | 2023-05-10 22:15 | External Medical Summary ---
Author Name Unknown Address [facility] [address] Phone Organization K01:[place] [address] Laboratory Report Ordering Provider Test Date Status RENETTA LOPEZES ZAK 07/04/2020 14:51:00 Final Observation Date Value Abnormality Reference (Units ) Status CRP, low-sensitivity 07/04/2020 15:40 11 Above high normal 0-5 (mg/L) Final Performing Location [place] [id number]
--- OUTSIDE RECORDS SUMMARY | 2023-05-10 22:15 | External Medical Summary | Summary of Care ---
Author Name Unknown Organization [facility] Address [place] [address] Care Team Providers Care Security Monitor Name Role Phone Alexandra Caceres Primary Care Provider [phone] Reason for Visit * Reason Onset Date Comments Advice 06/29/2020 Encounter Details Date Type Department Care Team Description 06/29/2020 Telephone [facility]iology [facility] [place] [address] [place] [address] Naheed Sanchez [address] [place] [address] Advice Allergies Active Allergy Reactions Severity Noted [...] 120 Vial 11 10/02/2019 Active nystatin (NYSTOP) 260237 UNIT/GM powder Apply topically to affected area [...] breakfast. 90 Cap 3 05/04/2020 Active PEG 9382-NUk-VyDnr-NaCl- NaSulf (GOLYTELY) 227.1 g PACK Drink 2 [...] SYSTM) MISC Freestyle Xochitl 2 14-day Sensor (525709) (2 sensors=28 day/1-month supply) 2 Each 1 05/26/2020 Active Continuous Blood Gluc Applications Support Analyst (FREESTYLE XOCHITL 2 READER SYSTM) KORTNEY Freestyle Xochitl 2 14-day Applications Support Analyst (695665) 1 Package 0 05/26/2020 Active famotidine (PEPCID) [...] less than 7.0% ([facility]) Inject 1.5mg (one pen) under the [...] less than 7.0% ([facility]) Inject 30 units under the skin once a day 30 mL 3 06/19/2020 Active BD Pen Needle Mini U/F 31G X 5 MM (Insulin Pen Needle)Indications:T ype 2 diabetes mellitus with hemoglobin A1c goal of less than 7.0% ([facility]) Use to inject insulin four times [...] pain 01/24/2012 01/17/2017 Genetic Sleep Disorder Research Other*[id number] 05/13/2011 04/07/2016 Obstructive sleep apnea 01/18/2011 12/27/19 [...] Miscellaneous Notes * Telephone Encounter - Janett Mosquera OSA - 07/03/2020 10:55 AM EDT Patient states she had a chest xray done 07/01 in the ER in [place]. She will have another one done if Dr. Caceres thinks she should. * Telephone Encounter - Preethi Colón LPN - 07/02/2020 4:22 PM EDT left message for patient to call back. * Telephone Encounter - Alexandra Caceres DO - 07/02/2020 8:40 AM EDT I could order a chest xray, let me know if willing. * Telephone Encounter - Linnette Mcdonald LPN - 07/01/2020 11:52 AM EDT Pt called and call was disconnected prior to transfer. Called pt back. States that she feels like she has fluid in her lungs. Noted pt to be wheezing while on the phone. Asking if she is going to have to Dobutamine test again? States she might go to [place] today to see if she has fluid in her lungs. Denies chest pain. Called PCP office and spoke with Michaelle. Michaelle requesting call to be transferred to her. Call transferred. * Telephone Encounter - Lidia Betancourt OSA - 07/01/2020 11:49 AM EDT Reason for patient's call: feels like fluid in her chest. Chest pain Caller was disconnected before transfer. * Telephone Encounter - Keyonna Barillas LPN - 06/30/2020 5:29 PM EDT Called and spoke to patient. Currently she do not have chest pain or back pain or discomfort. She states that she did not finished the procedure because it causes her back pain and extreme discomfort. * Telephone Encounter - Alexandra Caceres DO - 06/29/2020 9:42 PM EDT Does she continue have chest pain? * Telephone Encounter - Abbie Martinez OSA - 06/29/2020 10:50 AM EDT Patient calling stating she was unable to complete her Dobutamine test on 06/25/2020. Patient states she developed back pain and " they stopped the test." Patient is asking if the test " is going to be rescheduled with a different contrast." Please advise patient at [phone]. documented in this encounter Plan of Treatment Upcoming Encounters Date Type Specialty Care Team Description 0 Office Visit Family Medicine [facility]winder Carter DO [address] [facility] [id number] 0 Office Visit Hematology Oncology Zelda Kirk CRNP [address] [facility] [address] [phone] 0 Office Visit Wound Care Prakash Honeycutt, JEYSON [address] [place], [place] [address] 0 Office Visit Endocrinology Alberta Duque PA-C [address] [place] [address] 0 Office Visit [facility]astroenterology Essence Chase PA-C [address] [facility] [place] [address] [phone] 0 Office Visit Pharmacy [facility] [address] [place] [address] [phone] Hospital Encounter Surgery Janis Hatch, DO [address] [facility] [place] [address] [phone] Surgery Surgery Janis Hatch, DO [address] [facility] [place] [address] [phone] ESOPHAGOGASTRODUODENOSCOPY (EGD), FLEXIBLE, TRANSORAL, DIAGNOSTIC 0 Office Visit Family Medicine Alexandra Caceres, DO [address] [place] [address] [phone] Imaging Radiology 1 Office Visit Gastroenterology Lyssa Stout CRNP [address] [facility] [place] [address] [phone] Health Maintenance Due Date Last Done Comments [...] of this encounter Implants Implanted Type Area Personnel Specialist Device Identifier Shelf Expiration Date Model / Serial / Lot Microtech Sure Clip Implanted:Qty: 2 on 06/03/2020 by Janis Hatch DO at OR [facility] Clip N/A: Colon 04/21/2022 [facility]-F-26-2 35-C-R / / [id number] documented as of this encounter Advance Directives Documents on File Type Date Recorded Patient [place] Expl anation Advanced Directive service a kerri [...]
--- OUTSIDE RECORDS SUMMARY | 2023-05-10 22:15 | External Medical Summary | Summary of Care ---
Author Name Unknown Organization [place] [address] Care Team Providers Care Inspector Multifocal Lens Name Role Phone Alexandra Caceres Primary Care Provider [phone] Reason for Visit * Reason Onset Date Comments Advice 06/29/2020 Encounter Details Date Type Department Care Team Description 06/29/2020 Telephone [facility]iology [facility] [place] [address] [place] [address] Naheed Sanchez [address] [place] [address] Advice Allergies Active Allergy Reactions [...] 120 Vial 11 10/02/2019 Active nystatin (NYSTOP) 725959 UNIT/GM powder Apply topically to affected area [...] breakfast. 90 Cap 3 05/04/2020 Active PEG 7997-IJg-GhOgj-NaCl- NaSulf (GOLYTELY) 227.1 g PACK Drink 2 [...] SYSTM) MISC Freestyle Xochitl 2 14-day Sensor (258765) (2 sensors=28 day/1-month supply) 2 Each 1 05/26/2020 Active Continuous Blood Gluc Medicine Assistant (FREESTYLE XOCHITL 2 READER SYSTM) KORTNEY Freestyle Xochitl 2 14-day Medicine Assistant (050138) 1 Package 0 05/26/2020 Active famotidine (PEPCID) [...] than 7.0% ([facility]) Inject 1.5mg (one pen) under the skin [...] than 7.0% ([facility]) Inject 30 units under the skin once a day 30 mL 3 06/19/2020 Active BD Pen Needle Mini U/F 31G X 5 MM (Insulin Pen Needle)Indications:T ype 2 diabetes mellitus with hemoglobin A1c goal of less than 7.0% ([facility]) Use to inject insulin four times [...] pain 01/24/2012 01/17/2017 Genetic Sleep Disorder Research Other*[id number] 05/13/2011 04/07/2016 Obstructive sleep apnea 01/18/2011 12/27/19 [...] xray done 07/01 in the ER in [place]. She will have another one done if [...] test again? States she might go to [place] today to see if she has fluid [...] a different contrast." Please advise patient at [phone]. documented in this encounter Plan of Treatment Upcoming Encounters Date Type Specialty Care Team Description 0 Office Visit Family Medicine Rajwinder Carter DO [address] [facility] [id number] 0 Office Visit Hematology Oncology Zelda Kirk CRNP [address] [facility] [address] [phone] 0 Office Visit Wound Care Prakash Honeyuctt, JEYSON [address] [place], [place] [address] 0 Office Visit Endocrinology Alberta Duque PA-C [address] [place] [address] 0 Office Visit Gastroenterology Essence Chase PA-C [address] [facility] [place] [address] [phone] 0 Office Visit Pharmacy [facility] [address] [place] [address] [phone] Hospital Encounter Surgery Janis Hatch, DO [address] [facility] [place] [address] [phone] Surgery Surgery Janis Hatch, DO [address] [facility] [place] [address] [phone] ESOPHAGOGASTRODUODENOSCOPY (EGD), FLEXIBLE, TRANSORAL, DIAGNOSTIC 0 Office Visit Family Medicine Alexandra Caceres, DO [address] [place] [address] [phone] Imaging Radiology 1 Office Visit Gastroenterology Lyssa Stout CRNP [address] [facility] [place] [address] [phone] Health Maintenance Due Date Last Done Comments [...] of this encounter Implants Implanted Type Area Billboard Mechanic Device Identifier Shelf Expiration Date Model / Serial / Lot Microtech Sure Clip Implanted:Qty: 2 on 06/03/2020 by Janis Hatch DO at OR [facility] Clip N/A: Colon 04/21/2022 [facility]-F-26-2 35-C-R / / [id number] documented as of this encounter Advance Directives Documents on File Type Date Recorded 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 p Communication Syed Bustos Spouse Emergency Contact
--- OUTSIDE RECORDS SUMMARY | 2023-05-10 22:15 | External Medical Summary ---
Author Name Unknown Address [facility] [place] [place] [address] Phone Organization K01:[place] [address] Laboratory Report Ordering Provider Test Date Status NAWAF LOPEZ 07/04/2020 14:51:00 Final Observation Date Value Abnormality Reference (Units ) Status Lipase 07/04/2020 15:40 17 13-60 (U/L) F inal Performing Location [address] [address]
--- OUTSIDE RECORDS SUMMARY | 2023-05-10 22:16 | External Medical Summary | Summary of Care ---
Author Name Unknown Organization [place] [address] Care Team Providers Care High School Biology Teacher Name Role Phone Alexandra Caceres Primary Care Provider [phone] Reason for Visit * Reason Onset Date Comments Advice 06/29/2020 Encounter Details Date Type Department Care Team Description 06/29/2020 Telephone [facility]iology [facility] [place] [address] [place] [address] Naheed Sanchez [address] [place] [address] Advice Allergies Active Allergy Reactions Severity Noted Date Comments Adhesive Tape Itching 04/29/2020 Penicillins Rash 02/12/2008 Perflutren Protein A Microsph 2019 Definity-lower back pain documented as of this encounter (statuses as of 07/02/2020) Medications Medication Sig Dispensed Refills Start Date [...] 120 Vial 11 10/02/2019 Active nystatin (NYSTOP) 197463 UNIT/GM powder Apply topically to affected area [...] breakfast. 90 Cap 3 05/04/2020 Active PEG 5573-YOs-QcNwa-NaCl- NaSulf (GOLYTELY) 227.1 g PACK Drink 2 [...] SYSTM) MISC Freestyle Xochitl 2 14-day Sensor (528502) (2 sensors=28 day/1-month supply) 2 Each 1 05/26/2020 Active Continuous Blood Gluc Career Specialist (FREESTYLE XOCHITL 2 READER SYSTM) KORTNEY Freestyle Xochitl 2 14-day Career Specialist (405960) 1 Package 0 05/26/2020 Active famotidine (PEPCID) [...] of less than 7.0% ([facility]) Inject 1.5mg (one pen) under the [...] of less than 7.0% ([facility]) Inject 30 units under the skin once a day 30 mL 3 06/19/2020 Active BD Pen Needle Mini U/F 31G X 5 MM (Insulin Pen Needle)Indications:T ype 2 diabetes mellitus with hemoglobin A1c goal of less than 7.0% ([facility]) Use to inject insulin four times daily; E11.42 400 Each 3 06/23/2020 Active Insulin Aspart 100 UNIT/ML Subcutaneous Solution (NovoLOG) Inject 26 units under the skin before breakfast, 26 units before lunch, and 30 units before supper 60 mL 3 06/24/2020 Active documented as of this encounter (statuses as of 07/02/2020) Active Problems Problem Noted Date Diabetic ulcer [...] as of this encounter (statuses as of 07/02/2020) Resolved Problems Problem Noted Date Resolved Date [...] pain 01/24/2012 01/17/2017 Genetic Sleep Disorder Research Other*[id number] 05/13/2011 04/07/2016 Obstructive sleep apnea 01/18/2011 12/27/19 [...] as of this encounter (statuses as of 07/02/2020) Immunizations Name Administration Dates Next Due HEP [...] test again? States she might go to [place] today to see if she has fluid [...] have chest pain? * Telephone Encounter - bAbie Martinez OSA - 06/29/2020 10:50 AM EDT Patient calling stating she was unable to complete her Dobutamine test on 06/25/2020. Patient states she developed back pain and " they stopped the test." Patient is asking if the test " is going to be rescheduled with a different contrast." Please advise patient at [phone]. documented in this encounter Plan of Treatment Upcoming Encounters Date Type Specialty Care Team Description 0 Office Visit Hematology Oncology Zelda Kirk CRNP [address] [place] [address] [phone] Office Visit Wound Care Prakash Honeycutt PA-C [address] [place], [place] [address] 0 Office Visit Endocrinology Alberta Duque PA-C [address] [place] [address] 0 Office Visit Gastroenterology Essence Chase PA-C [address] [facility] [place] [address] [phone] Office Visit Pharmacy [place], [address] [place] [address] [phone] Hospital Encounter Surgery Janis Hatch, DO [address] [place] [address] [phone] Surgery Surgery Janis Hatch, DO [address] [place] [address] [phone] ESOPHAGOGASTRODUODENOSCOPY (EGD), FLEXIBLE, TRANSORAL, DIAGNOSTIC 0 Office Visit Family Medicine Alexandra Caceres, DO [address] [facility] [address] [phone] Imaging Radiology 1 Office Visit Gastroenterology Lyssa Stout CRNP [address] [place] [address] [phone] Health Maintenance Due Date Last Done Comments [...] of this encounter Implants Implanted Type Area Silk Hanger Device Identifier Shelf Expiration Date Model / Serial / Lot Microtech Sure Clip Implanted:Qty: 2 on 06/03/2020 by Janis Hatch DO at OR [facility] Clip N/A: Colon 04/21/2022 [facility]-F-26-2 35-C-R / / [id number] documented as of this encounter Advance Directives Documents on File Type Date Recorded 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
--- OUTSIDE RECORDS SUMMARY | 2023-05-10 22:16 | External Medical Summary | Summary of Care ---
Author Name Unknown Organization [place] [address] Care Team Providers Care Posting Clerk Name Role Phone Alexandra Caceres Primary Care Provider [phone] Reason for Visit * Reason Onset Date Comments Advice 06/29/2020 Encounter Details Date Type Department Care Team Description 06/29/2020 Telephone [facility]iology [facility] [place] [address] [place] [address] Naheed Sanchez [address] [place] [address] Advice Allergies Active Allergy Reactions [...] 120 Vial 11 10/02/2019 Active nystatin (NYSTOP) 491422 UNIT/GM powder Apply topically to affected area [...] breakfast. 90 Cap 3 05/04/2020 Active PEG 4447-UPg-SaZtm-NaCl- NaSulf (GOLYTELY) 227.1 g PACK Drink 2 [...] SYSTM) MISC Freestyle Xochitl 2 14-day Sensor (910424) (2 sensors=28 day/1-month supply) 2 Each 1 05/26/2020 Active Continuous Blood Gluc Explosive Ordnance Disposal Manager (FREESTYLE XOCHITL 2 READER SYSTM) KORTNEY Freestyle Xochitl 2 14-day Explosive Ordnance Disposal Manager (785963) 1 Package 0 05/26/2020 Active famotidine (PEPCID) [...] than 7.0% ([facility]) Inject 30 units under the skin [...] pain 01/24/2012 01/17/2017 Genetic Sleep Disorder Research Other*[id number] 05/13/2011 04/07/2016 Obstructive sleep apnea 01/18/2011 12/27/19 [...] test again? States she might go to [place] today to see if she has fluid [...] a different contrast." Please advise patient at [phone]. documented in this encounter Plan of Treatment Upcoming Encounters Date Type Specialty Care Team Description 0 Office Visit Family Medicine Rajwinder Carter DO [address] [place] [address] [phone] 0 Office Visit Hematology Oncology Zelda Kirk CRNP [address] [facility], [place] [address] [phone] 0 Office Visit Wound Care Prakash Honeycutt PA-C [address] [place] [address] [phone] 0 Office Visit Endocrinology Alberta uDque PA-C [address] [place] [address] [phone] Office Visit Gastroenterology Essence Chase PA-C [address] [facility] [address] [phone] 0 Office Visit [facility] [address] [place] [address] [phone] Hospital Encounter Surgery Janis Hatch, DO [address] [facility] [place] [address] [phone] Surgery Surgery Janis Hatch, DO [address] [facility] [place] [address] [phone] ESOPHAGOGASTRODUODENOSCOPY (EGD), FLEXIBLE, TRANSORAL, DIAGNOSTIC 0 Office Visit Family Medicine Alexandra Caceres, DO [address] [facility] [address] [phone] Imaging Radiology 1 Office Visit Gastroenterology Lyssa Stout CRNP [address] [facility] [address] [phone] Health Maintenance Due Date Last Done Comments [...] of this encounter Implants Implanted Type Area Pipe Inspector Device Identifier Shelf Expiration Date Model / Serial / Lot Microtech Sure Clip Implanted:Qty: 2 on 06/03/2020 by Janis Hatch DO at OR [facility] Clip N/A: Colon 04/21/2022 [facility]-F-26-2 35-C-R / / [id number] documented as of this encounter Advance Directives Documents on File Type Date Recorded 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
--- OUTSIDE RECORDS SUMMARY | 2023-05-10 22:16 | External Medical Summary | Summary of Care ---
Author Name Unknown Organization [place] [address] Care Team Providers Care Electrical Power Engineer Name Role Phone Alexandra Caceres DO Primary Care Provider [phone] Reason for Visit * Reason Onset Date Comments Appointment 06/26/2020 Encounter Details Date Type Department Care Team Description 06/26/2020 Telephone [facility] [address], [place] [id number] Alexandra Caceres DO [address] [place] [address] [phone] Appointment Allergies Active Allergy Reactions Severity Noted [...] 120 Vial 11 10/02/2019 Active nystatin (NYSTOP) 905614 UNIT/GM powder Apply topically to affected area [...] breakfast. 90 Cap 3 05/04/2020 Active PEG 3956-SCs-VsRem-NaCl- NaSulf (GOLYTELY) 227.1 g PACK Drink 2 liters two days before colonoscopy and 2 liters the day before colonoscopy 1 Each 0 05/04/2020 Active MetFORMIN (GLUCOPHAGE) 1000 MG TabletIndications:Ty pe 2 diabetes mellitus with hemoglobin A1c goal of less than 7.0% ([facility]) Take 1 Tab by mouth 2 times [...] SYSTM) MISC Freestyle Xochitl 2 14-day Sensor (808458) (2 sensors=28 day/1-month supply) 2 Each 1 05/26/2020 Active Continuous Blood Gluc Metal Casting Trades Worker (FREESTYLE XOCHITL 2 READER SYSTM) KORTNEY Freestyle Xochitl 2 14-day Metal Casting Trades Worker (904402) 1 Package 0 05/26/2020 Active famotidine (PEPCID) [...] pain 01/24/2012 01/17/2017 Genetic Sleep Disorder Research Other*[id number] 05/13/2011 04/07/2016 Obstructive sleep apnea 01/18/2011 12/27/19 [...] Telephone Encounter - Talita Caballero OSA - 07/02/2020 4:13 PM EDT Appt is scheduled 07/07 * Telephone Encounter - Preethi Colón LPN - 07/02/2020 1:16 PM EDT Called and spoke with pt. Pt states that she went to the ER because her chest pain is not any better. Scheduling: please assist pt with scheduling an ER follow up * Telephone Encounter - Josselin Gaspar LPN - 06/26/2020 10:38 AM EDT Called-terrible service-lots of background noises. Unable to hear. Called back-she answered-was disconnected. * Telephone Encounter - Alexandra Caceres DO - 06/26/2020 9:38 AM EDT Stress testing appears normal, is her chest pain better? * Telephone Encounter - Alexandra Caceres DO - 06/26/2020 9:38 AM EDT ----- Message from Keturah Sanchez MD sent at 06/26/2020 7:31 AM EDT ----- Note my patient. Stress test report, sub optimal secondary to backpain. Keturah ----- Message ----- From: Interface, Diagnostic Sent: 06/25/2020 4:52 PM EDT To: Keturah Sanchez MD documented in this encounter Plan of Treatment Upcoming Encounters Date Type Specialty Care Team Description 0 Office Visit Family Medicine Rajwinder Carter, DO [address] [place] [address] [phone] 0 Office Visit Hematology Oncology Zelda Kirk, ZAK [address] [place] [address] [phone] 0 Office Visit Wound Care Prakash Honeycutt PA-C [address], [place] [id number] 0 Office Visit Endocrinology Alberta Duque PA-C [address] [place] [address] [phone] Office Visit Gastroenterology Essence Chase PA-C [address] [place] [address] [phone] 0 Office Visit Pharmacy [facility] [address] [place] [address] [phone] Hospital Encounter Surgery Janis Hatch DO [address] [facility] [place] [address] [phone] Surgery Surgery Janis Hatch, DO [address] [place] [address] [phone] ESOPHAGOGASTRODUODENOSCOPY (EGD), FLEXIBLE, TRANSORAL, DIAGNOSTIC 0 Office Visit Family Medicine Alexandra Caceres, DO [address] [facility], [place] [address] [phone] Imaging Radiology 1 Office Visit Gastroenterology Lyssa Stout CRNP [address] [place] [address] [phone] Health Maintenance Due Date Last Done Comments DIABETES-EYE EXAM 06/12/2019 06/12/2018, , 06/12/2018, Additional history exists DIABETES-URINE MICROALBUMIN EVERY 12 MONTHS 01/12/2020 01/11/2019, 08/24/2018, 07/19/2018, Additional history exists DXA-SCREENING EVERY 7 YRS-USE InSightecSET# [id number] TO ORDER 2020 Pneumococcal Vaccine: 65+ [...] of this encounter Implants Implanted Type Area Completions Engineer Device Identifier Shelf Expiration Date Model / Serial / Lot Microtech Sure Clip Implanted:Qty: 2 on 06/03/2020 by Janis Hatch DO at OR [facility] Clip N/A: Colon 04/21/2022 [facility]-F-26-2 35-C-R / / [id number] documented as of this encounter Advance Directives Documents on File Type Date Recorded 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
--- OUTSIDE RECORDS SUMMARY | 2023-05-10 22:16 | External Medical Summary | Summary of Care ---
Author Name Unknown Organization [facility] Address [place] [address] Care Team Providers Care Water Meter Installer Name Role Phone Alexandra Caceres DO Primary Care Provider Encounter Details Date Type Department Care Team Description 06/26/2020 Telephone [facility] [address] [place] [address] Alexandra Caceres DO [address] [place] [address] Allergies Active Allergy Reactions Severity [...] 120 Vial 11 10/02/2019 Active nystatin (NYSTOP) 085874 UNIT/GM powder Apply topically to affected area [...] breakfast. 90 Cap 3 05/04/2020 Active PEG 7468-UOc-XnXrf-NaCl- NaSulf (GOLYTELY) 227.1 g PACK Drink 2 liters two days before colonoscopy and 2 liters the day before colonoscopy 1 Each 0 05/04/2020 Active MetFORMIN (GLUCOPHAGE) 1000 MG TabletIndications:Ty pe 2 diabetes mellitus with hemoglobin A1c goal of less than 7.0% ([facility]) Take 1 Tab by mouth 2 times [...] SYSTM) MISC Freestyle Xochitl 2 14-day Sensor (046560) (2 sensors=28 day/1-month supply) 2 Each 1 05/26/2020 Active Continuous Blood Gluc Seat Scooper Machine (FREESTYLE XOCHITL 2 READER SYSTM) KORTNEY Freestyle Xochitl 2 14-day Seat Scooper Machine (145456) 1 Package 0 05/26/2020 Active famotidine (PEPCID) [...] goal of less than 7.0% ([facility]) Inject 1.5mg (one pen) under [...] goal of less than 7.0% ([facility]) Inject 30 units under the skin once a day 30 mL 3 06/19/2020 Active BD Pen Needle Mini U/F 31G X 5 MM (Insulin Pen Needle)Indications:T ype 2 diabetes mellitus with hemoglobin A1c goal of less than 7.0% ([facility]) Use to inject insulin four [...] pain 01/24/2012 01/17/2017 Genetic Sleep Disorder Research Other*[id number] 05/13/2011 04/07/2016 Obstructive sleep apnea 01/18/2011 12/27/19 [...] Description 0 Office Visit Hematology Oncology Zelda Kirk, ZAK [address] [place] [address] [phone] 0 Office Visit Wound Care Prakash Honeycutt, JEYSON [address] [place], [place] [address] 0 Office Visit Endocrinology Alberta Duque PA-C [address] [place], [place] [address] 0 Office Visit Gastroenterology Essence Chase PA-C [address] [facility] [address] [phone] 0 Office Visit Pharmacy [facility] [address] [place] [address] [phone] Hospital Encounter Surgery Janis Hatch DO [address] [facility] [address] [phone] Surgery Surgery Janis Hatch DO [address] [facility] [address] [phone] ESOPHAGOGASTRODUODENOSCOPY (EGD), FLEXIBLE, TRANSORAL, DIAGNOSTIC 0 Office Visit Family Medicine Alexandra Caceres DO [address] [place] [address] [phone] Imaging Radiology 1 Office Visit Gastroenterology Lyssa Stout CRNP [address] [place] [address] [phone] Health Maintenance Due Date Last Done Comments [...] this encounter Implants Implanted Type Area Sole Cementer Device Identifier Shelf Expiration Date Model / Serial / Lot Microtech Sure Clip Implanted:Qty: 2 on 06/03/2020 by Janis Hatch DO at OR [facility] Clip N/A: Colon 04/21/2022 [facility]-F-26-2 35-C-R / / [id number] documented as of this encounter Advance Directives Documents on File Type Date Recorded Patient Space Physicist Expl anation Advanced Directive service a kerri [...] on File Name Relationship Healthcare Agent [facility] Communication Syed Bustos Spouse Emergency Contact
--- OUTSIDE RECORDS SUMMARY | 2023-05-10 22:16 | External Medical Summary | Summary of Care ---
Author Name Unknown Organization [place] [address] Care Team Providers Care Artillery Or Naval Gunfire Observer Name Role Phone Alexandra Caceres Primary Care Provider Reason for Visit * Reason Onset Date Comments Advice 06/29/2020 Encounter Details Date Type Department Care Team Description 06/29/2020 Telephone [facility] [place] [address] [place] [address] Naheed Sanchez [address] [place] [address] Advice Allergies Active Allergy Reactions [...] 120 Vial 11 10/02/2019 Active nystatin (NYSTOP) 925604 UNIT/GM powder Apply topically to affected area [...] breakfast. 90 Cap 3 05/04/2020 Active PEG 8567-PJl-RvVux-NaCl- NaSulf (GOLYTELY) 227.1 g PACK Drink 2 [...] SYSTM) MISC Freestyle Xochitl 2 14-day Sensor (876212) (2 sensors=28 day/1-month supply) 2 Each 1 05/26/2020 Active Continuous Blood Gluc Channel Machine Operator (FREESTYLE XOCHITL 2 READER SYSTM) KORTNEY Freestyle Xochitl 2 14-day Channel Machine Operator (089609) 1 Package 0 05/26/2020 Active famotidine (PEPCID) [...] than 7.0% ([facility]) Inject 1.5mg (one pen) under the skin [...] than 7.0% ([facility]) Inject 30 units under the skin once [...] pain 01/24/2012 01/17/2017 Genetic Sleep Disorder Research Other*[id number] 05/13/2011 04/07/2016 Obstructive sleep apnea 01/18/2011 12/27/19 [...] xray done 07/01 in the ER in [place]. She will have another one done if [...] test again? States she might go to [place] today to see if she has fluid [...] a different contrast." Please advise patient at [phone]. documented in this encounter Plan of Treatment Upcoming Encounters Date Type Specialty Care Team Description 0 Office Visit Family Medicine Rajwinder Carter DO [address] [place] [id number] 0 Office Visit Hematology Oncology Zelda Kirk CRNP [address] [facility] [address] [phone] 0 Office Visit Wound Care Prakash Honeycutt, JEYSON [address], [place] [address] 0 Office Visit Endocrinology Alberta Duque PA-C [address] [place] [address] 0 Office Visit [facility]astroenterology Essence Chase PA-C [address] [facility] [place] [address] [phone] 0 Office Visit Pharmacy [facility] [address] [place] [address] [phone] Hospital Encounter Surgery Janis Hatch, DO [address] [facility] [place] [address] [phone] Surgery Surgery Janis Hatch, DO [address] [facility] [place] [address] [phone] ESOPHAGOGASTRODUODENOSCOPY (EGD), FLEXIBLE, TRANSORAL, DIAGNOSTIC 0 Office Visit Family Medicine Alexandra Caceres, DO [address] [place] [address] [phone] Imaging Radiology 1 Office Visit Gastroenterology Lyssa Stout CRNP [address] [facility] [place] [address] [phone] Health Maintenance Due Date Last Done Comments [...] this encounter Implants Implanted Type Area Environmental Engineering Aide Device Identifier Shelf Expiration Date Model / Serial / Lot Microtech Sure Clip Implanted:Qty: 2 on 06/03/2020 by Janis Hatch DO at OR [facility] Clip N/A: Colon 04/21/2022 [facility]-F-26-2 35-C-R / / [id number] documented as of this encounter Advance Directives Documents on File Type Date Recorded Patient Lead Trainer Expl anation Advanced Directive service a [...]
--- OUTSIDE RECORDS SUMMARY | 2023-05-10 22:16 | External Medical Summary ---
Author Name Unknown Address [address] [facility] [place] [address] Phone Organization K01:[facility] [address] [facility] [place] [address] Laboratory Report Ordering Provider Test Date Status MARISABEL ABBASI 07/01/2020 19:55:00 Final Observation Date Value Abnormality Reference (Units ) Status Source 07/01/2020 20:38 BLOOD Final Bacteria identified in Unspecified specimen by Culture 07/07/2020 00:57 NO GROWTH Final REPORT STATUS 07/07/2020 00:57 07/07/2020 FINAL Final Performing Location [facility] [address] [facility] [place] [address]
--- OUTSIDE RECORDS SUMMARY | 2023-05-10 22:16 | External Medical Summary ---
Author Name Unknown Address [address] [place] [address] Phone Organization K01:[place] [id number] Laboratory Report Ordering Provider Test Date Status MARISABEL ABBASI 07/01/2020 20:02:00 Final Observation Date Value Abnormality Reference (Units) Status Source 07/01/2020 20:37 BLOOD Final BLOOD CULTURE PCR ID 07/03/2020 23:57 ANAEROBIC BOTTLE STAPHYLOCOCCUS SPECIES DNA BY PCR Final BLOOD CULTURE PCR ID 07/03/2020 23:57 MECA METHICILLIN RESISTANCE GENE, DETECTED Final BLOOD CULTURE PCR ID 07/03/2020 23:57 Negative for all other bacterial targets and resistance genes. This assay detects: Enterococcus, Listeria monocytogenes, Staphylococcus, Staphylococcus aureus, Streptococcus, Streptococcus agalactiae, Streptococcus pneumoniae, Streptococcus pyogenes, Acinetobacter baumannii, Enterobacteriaceae, Enterobacter cloacae complex, Escherichia coli, Klebsiella oxytoca, Klebsiella pneumoniae, Proteus, Serratia marcescens, Haemophilus influenzae, Neisseria meningitidis, Pseudomonas aeruginosa, Rachelle albicans, Rachelle glabrata, Rachelle krusei, Rachelle parapsilosis, Rachelle tropicalis, KPC carbapenem resistance gene, mecA methicillin resistance gene, and Calvin/B vancomycin resistance gene. Final BLOOD CULTURE PCR ID 07/03/2020 23:57 The validation of this specimen type for this assay was developed and performance characteristics determined by [employer]. It has not been cleared or approved by the U.S. Food and Drug Administration (FDA). The FDA has determined that such clearance or approval is not necessary. Final Bacteria identified in Unspecified specimen by Culture 07/07/2020 12:48 ANAEROBIC BOTTLE STAPHYLOCOCCUS HOMINIS ANTIMICROBIAL SUSCEPTIBILITY TESTING IS NOT ROUTINELY PERFORMED ON ISOLATES FROM ONLY ONE OF TWO BLOOD CULTURES THESE ARE ALMOST ALWAYS NOT CLINICALLY SIGNIFICANT Abnormal Final Bacteria identified in Unspecified specimen by Culture 07/07/2020 12:48 AEROBIC BOTTLE NO GROWTH Final REPORT STATUS 07/07/2020 15:41 07/07/2020 FINAL Final Performing Location [address] [address]
--- OUTSIDE RECORDS SUMMARY | 2023-05-10 22:17 | External Medical Summary | Summary of Care ---
Author Name Unknown Organization [place] [address] Care Team Providers Care Legal Director Name Role Phone Alexandra Caceres Primary Care Provider [phone] Reason for Visit * Reason Onset Date Comments Advice 06/29/2020 Encounter Details Date Type Department Care Team Description 06/29/2020 Telephone [facility] [place] [address] [place] [address] Naheed Sanchez [address] [place] [address] Advice Allergies Active Allergy Reactions Severity Noted Date Comments Adhesive Tape Itching 04/29/2020 Penicillins Rash 02/12/2008 Perflutren Protein A Microsph 2019 Definity-lower back pain documented as of this encounter (statuses as of 07/01/2020) Medications Medication Sig Dispensed Refills Start Date [...] 120 Vial 11 10/02/2019 Active nystatin (NYSTOP) 847258 UNIT/GM powder Apply topically to affected area [...] breakfast. 90 Cap 3 05/04/2020 Active PEG 5128-ZPc-PtKho-NaCl- NaSulf (GOLYTELY) 227.1 g PACK Drink 2 [...] SYSTM) MISC Freestyle Xochitl 2 14-day Sensor (808433) (2 sensors=28 day/1-month supply) 2 Each 1 05/26/2020 Active Continuous Blood Gluc Machine Maintenance Servicer (FREESTYLE XOCHITL 2 READER SYSTM) KORTNEY Freestyle Xochitl 2 14-day Machine Maintenance Servicer (389973) 1 Package 0 05/26/2020 Active famotidine (PEPCID) [...] of less than 7.0% ([facility]) Inject 1.5mg (one pen) under [...] of less than 7.0% ([facility]) Inject 30 units under the [...] as of this encounter (statuses as of 07/01/2020) Active Problems Problem Noted Date Diabetic ulcer [...] as of this encounter (statuses as of 07/01/2020) Resolved Problems Problem Noted Date Resolved Date [...] pain 01/24/2012 01/17/2017 Genetic Sleep Disorder Research Other*[id number] 05/13/2011 04/07/2016 Obstructive sleep apnea 01/18/2011 12/27/19 [...] as of this encounter (statuses as of 07/01/2020) Immunizations Name Administration Dates Next Due HEP [...] test again? States she might go to [place] today to see if she has fluid [...] a different contrast." Please advise patient at [phone]. documented in this encounter Plan of Treatment Upcoming Encounters Date Type Specialty Care Team Description 0 Office Visit Hematology Oncology Zelda Kirk CRNP [address] [facility] [place] [address] [phone] Office Visit Wound Care Prakash Honeycutt PA-C [address], [place] [address] 0 Office Visit Endocrinology Alberta Duque PA-C [address], [place] [address] 0 Office Visit Gastroenterology Essence Chase PA-C [address] [place] [address] [phone] [address] [address] [phone] Hospital Encounter Surgery Janis Hatch DO [address] [place] [address] [phone] Surgery Surgery Janis Hatch, DO [address] [place] [address] [phone] ESOPHAGOGASTRODUODENOSCOPY (EGD), FLEXIBLE, TRANSORAL, DIAGNOSTIC 0 Office Visit Family Medicine Alexandra Caecres, DO [address] [facility], [place] [address] [phone] Imaging Radiology 1 Office Visit Gastroenterology Lyssa Stout, ZAK [address] [place] [address] [phone] Health Maintenance Due Date Last Done Comments [...] of this encounter Implants Implanted Type Area Newspaper Or Periodical Editor Device Identifier Shelf Expiration Date Model / Serial / Lot Microtech Sure Clip Implanted:Qty: 2 on 06/03/2020 by Janis Hatch DO at OR [facility] Clip N/A: Colon 04/21/2022 [facility]-F-26-2 35-C-R / / [id number] documented as of this encounter Advance Directives Documents on File Type Date Recorded 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
--- OUTSIDE RECORDS SUMMARY | 2023-05-10 22:17 | External Medical Summary ---
Author Name Unknown Address [facility] [place] [address] Phone Organization K01:[facility] [address] [place] [id number] Laboratory Report Ordering Provider Test Date Status JASPAL CORRALES 07/01/2020 19:55:00 Final Observation Date Value Abnormality Reference (Units ) Status Specimen expiration date of Blood 07/01/2020 20:42 07/04/2020 Final ABO and Rh (D) 07/01/2020 21:11 A POSITIVE Final Antibody Screen 07/01/2020 21:22 NEGATIVE Final Performing Location [facility] [address] [facility] [address]
--- OUTSIDE RECORDS SUMMARY | 2023-05-10 22:17 | External Medical Summary ---
Author Name Unknown Address [address] [facility] [place] [address] Phone Organization [facility] [address] [facility] [place] [address] Laboratory Report Ordering Provider Test Date Status ROBIN CORRALES 07/01/2020 19:55:00 Final Observation Date Value Abnormality Reference (Units) Status WBC, Total 07/01/2020 21:12 2.99 Below low normal 4.00-10.80 (K/uL) Final RBC 07/01/2020 21:12 2.89 Below low normal 3.85-5.15 (M/uL) Final Hemoglobin 07/01/2020 21:12 7.8 Below low normal 12.0-15.3 (g/dL) Final HCT 07/01/2020 21:12 27.5 Below low normal 36.0-45.2 (%) Final MCV 07/01/2020 21:12 95.2 81.5-97.5 (fL) Final MCH 07/01/2020 21:12 27.0 27.0-34.0 (pg) Final MCHC 07/01/2020 21:12 28.4 Below low normal 32.0-36.0 (g/dL) Final RDW 07/01/2020 21:12 16.9 Above high normal 11.5-15.5 (%) Final Platelets 07/01/2020 21:12 87 Below low normal 140-400 (K/uL) Final MPV 07/01/2020 21:12 NO RESULT - ABNORMAL PLATELET DISTRIBUTION 6.6-11.1 (fL) Final Nucleated erythrocytes/100 leukocytes [Ratio] in Blood by Automated count 07/01/2020 21:12 0 0 (/100 WBCs) Final Segs 07/01/2020 21:53 53.5 40-75 (%) Final Lymphs % 07/01/2020 21:53 27.8 18-42 (%) Final Monos 07/01/2020 21:53 11.0 1-11 (%) Final Eosinophils 07/01/2020 21:53 6.4 Above high normal 0-6 (%) Final Basos 07/01/2020 21:53 1.0 0-2 (%) Final Immature Granulocyte, Percent 07/01/2020 21:53 0.3 0-2 (%) Final Neutrophils [#/volume] in Blood 07/01/2020 21:53 1.60 Below low normal 1.8-7.7 (K/uL) Final Lymphs, absolute 07/01/2020 21:53 0.83 Below low normal 1.0-4.8 (K/uL) Final Monos, Abs 07/01/2020 21:53 0.33 0.0-1.1 (K/uL) Final Eos, Abs 07/01/2020 21:53 0.19 0.0-0.7 (K/uL) Final Basos, Abs 07/01/2020 21:53 0.03 0.0-0.2 (K/uL) Final Immature Granulocytes, Number 07/01/2020 21:53 0.01 0.0-0.2 (K/uL) Final Anisocytosis [Presence] in Blood by Light microscopy 07/01/2020 21:53 MODERATE Final Hypochromia [Presence] in Blood by Light microscopy 07/01/2020 21:53 SLIGHT Final Ovalocytes [Presence] in Blood by Light microscopy 07/01/2020 21:53 FEW Final Target cells [Presence] in Blood by Light microscopy 07/01/2020 21:53 FEW Final Dacrocytes [Presence] in Blood by Light microscopy 07/01/2020 21:53 FEW Final Performing Location [facility] [address] [facility] [address]
--- OUTSIDE RECORDS SUMMARY | 2023-05-10 22:17 | External Medical Summary | Summary of Care ---
Author Name Unknown Organization [place] [address] Care Team Providers Care Angio Technologist Name Role Phone Alexandra Caceres Primary Care Provider [phone] Reason for Visit * Reason Onset Date Comments Advice 06/29/2020 Encounter Details Date Type Department Care Team Description 06/29/2020 Telephone Cardiology [facility], [place] [address] [place] [address] Naheed Sanchez [address] [place] [address] Advice Allergies Active Allergy Reactions [...] 120 Vial 11 10/02/2019 Active nystatin (NYSTOP) 950635 UNIT/GM powder Apply topically to affected area [...] breakfast. 90 Cap 3 05/04/2020 Active PEG 5976-XYq-CpDdb-NaCl- NaSulf (GOLYTELY) 227.1 g PACK Drink 2 [...] SYSTM) MISC Freestyle Xochitl 2 14-day Sensor (101091) (2 sensors=28 day/1-month supply) 2 Each 1 05/26/2020 Active Continuous Blood Gluc Vibration Analyst (FREESTYLE XOCHITL 2 READER SYSTM) KORTNEY Freestyle Xochitl 2 14-day Vibration Analyst (822805) 1 Package 0 05/26/2020 Active famotidine (PEPCID) [...] ([facility]) Inject 1.5mg (one pen) under the skin [...] ([facility]) Inject 30 units under the skin once [...] pain 01/24/2012 01/17/2017 Genetic Sleep Disorder Research Other*[id number] 05/13/2011 04/07/2016 Obstructive sleep apnea 01/18/2011 12/27/19 [...] encounter Miscellaneous Notes * Telephone Encounter - Lidia Betancourt OSA [...] a different contrast." Please advise patient at [phone]. documented in this encounter Plan of Treatment Upcoming Encounters Date Type Specialty Care Team Description 0 Office Visit Hematology Oncology Zelda Kirk CRNP [address] [place] [address] [phone] Office Visit Wound Care Prakash Honeycutt PA-C [address] [place], [place] [address] 0 Office Visit Endocrinology Alberta Duque PA-C [address], [place] 278[address] 0 Office Visit Gastroenterology Essence Chase PA-C [address] [place] [address] [phone] 0 Office Visit Pharmacy [facility] [address] [place] [address] [phone] Hospital Encounter Surgery Janis Hatch, DO [address] [place] [address] [phone] Surgery Surgery Janis Hatch, DO [address] [place] [address] [phone] ESOPHAGOGASTRODUODENOSCOPY (EGD), FLEXIBLE, TRANSORAL, DIAGNOSTIC 0 Office Visit Family Medicine Alexandra Caceres, DO [address] [place] [address] [phone] Imaging Radiology 1 Office Visit Gastroenterology Lyssa Stout CRNP [address] [place] [address] [phone] Health Maintenance Due Date Last Done Comments [...] this encounter Implants Implanted Type Area Lace Pinner Device Identifier Shelf Expiration Date Model / Serial / Lot Microtech Sure Clip Implanted:Qty: 2 on 06/03/2020 by Janis Hatch DO at OR [facility] Clip N/A: Colon 04/21/2022 [facility]-F-26-2 35-C-R / / [id number] documented as of this encounter Advance Directives Documents on File Type Date Recorded Patient Can Runner Expl anation Advanced Directive service a [...]
--- OUTSIDE RECORDS SUMMARY | 2023-05-10 22:17 | External Medical Summary ---
Author Name Unknown Address [facility] [place] [address] Phone Organization K01:[place] [address] [address] [place] [id number] Laboratory Report Ordering Provider Test Date Status ROBIN CORRALES 07/01/2020 19:55:00 Final Observation Date Value Abnormality Reference (Units ) Status Procalcitonin [Mass/volume] in Serum or Plasma by Immunoassay 07/01/2020 21:17 0.08 <0.1 (ng/mL) Fi nal Annotation Comment 07/01/2020 21:17 Final Performing Location [facility] [address] [facility] [address]
--- OUTSIDE RECORDS SUMMARY | 2023-05-10 22:17 | External Medical Summary | Summary of Care ---
Author Name Unknown Organization [place] [address] Care Team Providers Care Pattern Molder Name Role Phone Alexandra Caceres Primary Care Provider [phone] Reason for Visit * Reason Onset Date Comments Advice 06/29/2020 Encounter Details Date Type Department Care Team Description 06/29/2020 Telephone Cardiology [facility], [place] [address] [place] [address] Naheed Sanchez [address] [place] [address] Advice Allergies Active Allergy Reactions [...] 120 Vial 11 10/02/2019 Active nystatin (NYSTOP) 177378 UNIT/GM powder Apply topically to affected area [...] breakfast. 90 Cap 3 05/04/2020 Active PEG 3504-VMw-NwDmd-NaCl- NaSulf (GOLYTELY) 227.1 g PACK Drink 2 [...] SYSTM) MISC Freestyle Xochitl 2 14-day Sensor (449622) (2 sensors=28 day/1-month supply) 2 Each 1 05/26/2020 Active Continuous Blood Gluc Coal Yard Supervisor (FREESTYLE XOCHITL 2 READER SYSTM) KORTNEY Freestyle Xochitl 2 14-day Coal Yard Supervisor (983484) 1 Package 0 05/26/2020 Active famotidine (PEPCID) [...] hemoglobin A1c goal of less than 7.0% ([facility]) Inject 1.5mg (one pen) under the skin once weekly 6 mL 3 06/12/2020 Active SM Aspirin Adult Low Strength 81 MG Oral Tablet Delayed Release (aspirin enteric coated) TAKE 1 TABLET BY MOUTH ONCE DAILY 90 Tab 1 06/18/2020 Active Lantus SoloStar 100 UNIT/ML Subcutaneous Solution Pen-injector (insulin glargine)Indications :Type 2 diabetes mellitus with hemoglobin A1c goal of less than 7.0% ([facility]) Inject 30 units under the skin once a day 30 mL 3 06/19/2020 Active BD Pen Needle Mini U/F 31G X 5 MM (Insulin Pen Needle)Indications:T ype 2 diabetes mellitus with hemoglobin A1c goal of less than 7.0% ([facility]) Use to inject insulin four [...] pain 01/24/2012 01/17/2017 Genetic Sleep Disorder Research Other*[id number] 05/13/2011 04/07/2016 Obstructive sleep apnea 01/18/2011 12/27/19 [...] test again? States she might go to [place] today to see if she has fluid [...] a different contrast." Please advise patient at [phone]. documented in this encounter Plan of Treatment Upcoming Encounters Date Type Specialty Care Team Description 0 Office Visit Hematology Oncology Zelda Kirk CRNP [address] [facility] [place] [address] [phone] Office Visit Wound Care Prakash Honeycutt PA-C [address] [place], [place] [address] 0 Office Visit Endocrinology Alberta Duque PA-C [address] [place], [place] [address] 0 Office Visit Gastroenterology Essence Chase PA-C [address] [place] [address] [phone] [address] [address] [phone] Hospital Encounter Surgery Janis Hatch DO [address] [place] [address] [phone] Surgery Surgery Janis Hatch, DO [address] [place] [address] [phone] ESOPHAGOGASTRODUODENOSCOPY (EGD), FLEXIBLE, TRANSORAL, DIAGNOSTIC 0 Office Visit Family Medicine Alexandra Caceres, DO [address] [facility], [place] [address] [phone] Imaging Radiology 1 Office Visit Gastroenterology Lyssa Stout, ZAK [address] [place] [address] [phone] Health Maintenance Due Date Last Done Comments [...] of this encounter Implants Implanted Type Area Ad Setter Device Identifier Shelf Expiration Date Model / Serial / Lot Microtech Sure Clip Implanted:Qty: 2 on 06/03/2020 by Janis Hatch DO at OR [facility] Clip N/A: Colon 04/21/2022 [facility]-F-26-2 35-C-R / / [id number] documented as of this encounter Advance Directives Documents on File Type Date Recorded Patient Qa Specialist Expl anation Advanced Directive service a [...] Health [facility] p Communication Syed Juli Spouse Emergency Contact
--- OUTSIDE RECORDS SUMMARY | 2023-05-10 22:17 | External Medical Summary ---
Author Name Unknown Address [address] [place], [place] [address] Phone Organization K01:[place] [id number] Laboratory Report Ordering Provider Test Date Status ROBIN CORRALES 07/01/2020 19:55:00 Final Observation Date Value Abnormality Reference (Units) Status Body temperature 07/01/2020 20: 37.0 (degree C) Final pH of Venous blood 07/01/2020 20: 7.396 7.320-7.430 (units) Final Carbon dioxide [Partial pressure] in Venous blood 07/01/2020 20:21 46.0 40.0-60.0 (mm Hg) Final Oxygen [Partial pressure] in Venous blood 07/01/2020 20:21 36.4 25.0-50.0 (mm Hg) Final Bicarbonate, Venous 07/01/2020 20:21 27.7 23.0-31.0 (mmol/L) Final Base Excess, Venous 07/01/2020 20:21 3.1 Above high normal 0-2.0 (mmol/L) Final Hemoglobin [Mass/volume] in Blood by Oximetry 07/01/2020 20:21 5.5 Below lower panic limits 12.0-15.3 (g/dL) Final Oxyhemoglobin, Venous (FO2HB) 07/01/2020 20:21 60.5 40.0-85.0 (% total Hgb) Final Carboxyhemoglobin 07/01/2020 20:21 1.9 Above high normal 0-1.5 (% total Hgb) Final Performing Location [address] [address]
--- OUTSIDE RECORDS SUMMARY | 2023-05-10 22:17 | External Medical Summary ---
Author Name Unknown Address [address] [place] [address] Phone Organization K01:[facility] [address] [place] [id number] Laboratory Report Ordering Provider Test Date Status ROBIN CORRALES 07/01/2020 19:55:00 Final Observation Date Value Abnormality Reference (Units ) Status BUN 07/01/2020 21:17 12 6-20 (mg/dL) Final Creatinine 07/01/2020 21:17 0.6 0.5-1.0 (mg/ dL) Final E Glom Filt Rate 07/01/2020 21:17 >60.0 >60 Final Performing Location [facility] [address] [facility] [address]
--- OUTSIDE RECORDS SUMMARY | 2023-05-10 22:17 | External Medical Summary ---
Author Name Unknown Address [facility] N [facility]22 Phone Organization K01:[facility] [address] [place] [id number] Laboratory Report Ordering Provider Test Date Status JASPAL CORRALES 07/01/2020 19:46:00 Final Observation Date Value Abnormality Reference (Units ) Status SPECIMEN SOURCE 07/01/2020 19:54 NASAL TURBINATE Final : First test for condition of interest 07/01/2020 19:54 NO Final status 07/01/2020 19:54 UNKNOWN Final Employed in a healthcare setting 07/01/2020 19:54 NO Final Patient was hospitalized because of this condition 07/01/2020 19:54 UNKNOWN Final Admit to ICU for cond of interest 07/01/2020 19:54 NO Final Resides in congregate care setting 07/01/2020 19:54 NO Final Has symptoms related to cond of interest 07/01/2020 19:54 YES Final IF YES, WHAT SYMPTOMS ARE PRES 07/01/2020 19:54 CHILLS Final Performing Location [facility] [address] [facility] [address]
--- OUTSIDE RECORDS SUMMARY | 2023-05-10 22:17 | External Medical Summary ---
Author Name Unknown Address [facility] N [facility]22 Phone Organization K01:[facility] [address] [facility] [address] Laboratory Report Ordering Provider Test Date Status ROBIN CORRALES 07/01/2020 19:55:00 Final Observation Date Value Abnormality Reference (Units ) Status Troponin T 07/01/2020 21:17 7 0-14 (ng/L) Final Performing Location [address] [address]
--- OUTSIDE RECORDS SUMMARY | 2023-05-10 22:17 | External Medical Summary ---
Author Name Unknown Address [address] [facility]22 Phone Organization K01:[facility] [address] [place] [id number] Laboratory Report Ordering Provider Test Date Status MARISABEL ABBASI 07/01/2020 19:55:00 Final Observation Date Value Abnormality Reference (Units ) Status ABO and Rh (D) 07/01/2020 21:33 A POSITIVE Final Performing Location [facility] [address] [facility] [address]
--- OUTSIDE RECORDS SUMMARY | 2023-05-10 22:17 | External Medical Summary ---
Author Name Unknown Address [facility] [place] [address] Phone Organization K01:[place] [id number] Laboratory Report Ordering Provider Test Date Status JASPAL CORRALES 07/01/2020 19:50:00 Final Observation Date Value Abnormality Reference (Units ) Status BNP, Pro-hormone 07/02/2020 04:54 51 0-299 (pg/mL) Final Performing Location [address] [address]
--- OUTSIDE RECORDS SUMMARY | 2023-05-10 22:18 | External Medical Summary | Summary of Care ---
Author Name Unknown Organization [place] [address] Care Team Providers Care Loss Prevention Leader Name Role Phone Alexandra Caceres Primary Care Provider [phone] Reason for Visit * Reason Onset Date Comments Advice 06/29/2020 Encounter Details Date Type Department Care Team Description 06/29/2020 Telephone Hematology/Oncology [facility] [address] [place] [address] Tono Sanchez MD [address] [place] [address] [phone] Advice Allergies Active Allergy Reactions Severity Noted Date Comments Adhesive Tape Itching 04/29/2020 Penicillins Rash 02/12/2008 Perflutren Protein A Microsph 2019 Definity-lower back pain documented as of this encounter (statuses as of 06/29/2020) Medications Medication Sig Dispensed Refills Start Date [...] 120 Vial 11 10/02/2019 Active nystatin (NYSTOP) 068813 UNIT/GM powder Apply topically to affected area [...] breakfast. 90 Cap 3 05/04/2020 Active PEG 3968-EUq-FmRxg-NaCl- NaSulf (GOLYTELY) 227.1 g PACK Drink 2 liters two days before colonoscopy and 2 liters the day before colonoscopy 1 Each 0 05/04/2020 Active MetFORMIN (GLUCOPHAGE) 1000 MG TabletIndications:Ty pe 2 diabetes mellitus with hemoglobin A1c goal of less than 7.0% ([facility]) Take 1 Tab by mouth 2 times [...] SYSTM) MISC Freestyle Xochitl 2 14-day Sensor (412409) (2 sensors=28 day/1-month supply) 2 Each 1 05/26/2020 Active Continuous Blood Gluc Garden Machinery Mechanic (FREESTYLE XOCHITL 2 READER SYSTM) KORTNEY Freestyle Xochitl 2 14-day Garden Machinery Mechanic (402350) 1 Package 0 05/26/2020 Active famotidine (PEPCID) [...] as of this encounter (statuses as of 06/29/2020) Active Problems Problem Noted Date Diabetic ulcer [...] as of this encounter (statuses as of 06/29/2020) Resolved Problems Problem Noted Date Resolved Date [...] pain 01/24/2012 01/17/2017 Genetic Sleep Disorder Research Other*[id number] 05/13/2011 04/07/2016 Obstructive sleep apnea 01/18/2011 12/27/19 [...] as of this encounter (statuses as of 06/29/2020) Immunizations Name Administration Dates Next Due HEP [...] Telephone Encounter - Janett Triana OSA - 06/29/2020 3:50 PM EDT Called patient back and she rescheduled her appt with Zelda CRESPO for 07-13-20. * Telephone Encounter - Georgia Nunez OSA - 06/29/2020 3:00 PM EDT Pt calling in. She is needing to reschedule her appt, due to no transportation. I cancelled pt's appt for 06.30.2020. Please contact pt to set up new appt. Thank you. documented in this encounter Plan of Treatment Upcoming Encounters Date Type Specialty Care Team Description 0 Office Visit Hematology Oncology Zelda Kirk CRNP [address] [facility] [address] [phone] Office Visit Wound Care Prakash Honeycutt PA-C [address] [place] [address] 0 Office Visit Endocrinology Alberta Duque PA-C [address] [place], [place] [address] 0 Office Visit Gastroenterology Essence Chase PA-C [address] [facility] [place] [address] [phone] 0 Office Visit [facility] [address] [place] [address] [phone] Hospital Encounter Surgery Janis Hatch, DO [address] [facility] [place] [address] [phone] Surgery Surgery Janis Hatch, DO [address] [facility] [place] [address] [phone] ESOPHAGOGASTRODUODENOSCOPY (EGD), FLEXIBLE, TRANSORAL, DIAGNOSTIC 0 Office Visit Family Medicine Alexandra Caceres, DO [address] [place] [address] [phone] Imaging Radiology 1 Office Visit Gastroenterology Lyssa Stout CRNP [address] [facility] [address] [phone] Health Maintenance Due Date Last Done Comments [...] encounter Implants Implanted Type Area School Bus Inspector Device Identifier Shelf Expiration Date Model / Serial / Lot Microtech Sure Clip Implanted:Qty: 2 on 06/03/2020 by Janis Hatch DO at OR [facility] Clip N/A: Colon 04/21/2022 [facility]-F-26-2 35-C-R / / [id number] documented as of this encounter Advance Directives Documents on File Type Date Recorded Patient Specialized Developer Expl anation Advanced Directive service a [...] File Name Relationship Healthcare Agent [facility] Communication Syed Bustos Spouse Emergency Contact
--- OUTSIDE RECORDS SUMMARY | 2023-05-10 22:18 | External Medical Summary | Summary of Care ---
Author Name Unknown Organization [place] [address] Care Team Providers Care Process Supervisor Name Role Phone Alexandra Caceres Primary Care Provider [phone] Reason for Visit * Reason Onset Date Comments Advice 06/29/2020 Encounter Details Date Type Department Care Team Description 06/29/2020 Telephone [facility]iology [facility] [place] [address] [place] [address] Naheed Sanchez [address] [place] [address] Advice Allergies Active Allergy Reactions [...] 120 Vial 11 10/02/2019 Active nystatin (NYSTOP) 590175 UNIT/GM powder Apply topically to affected area [...] breakfast. 90 Cap 3 05/04/2020 Active PEG 6346-YSt-HaJhq-NaCl- NaSulf (GOLYTELY) 227.1 g PACK Drink 2 [...] SYSTM) MISC Freestyle Xochitl 2 14-day Sensor (678546) (2 sensors=28 day/1-month supply) 2 Each 1 05/26/2020 Active Continuous Blood Gluc Bottom Steep Tender (FREESTYLE XOCHITL 2 READER SYSTM) KORTNEY Freestyle Xochitl 2 14-day Bottom Steep Tender (521448) 1 Package 0 05/26/2020 Active famotidine (PEPCID) [...] pain 01/24/2012 01/17/2017 Genetic Sleep Disorder Research Other*[id number] 05/13/2011 04/07/2016 Obstructive sleep apnea 01/18/2011 12/27/19 [...] a different contrast." Please advise patient at [phone]. documented in this encounter Plan of Treatment Upcoming Encounters Date Type Specialty Care Team Description 0 Office Visit Hematology Oncology Zelda Kirk CRNP [address] [place] [address] [phone] Office Visit Wound Care Prakash Honeycutt PA-C [address] [facility] [address] 0 Office Visit Endocrinology Alberta Duque PA-C [address] [facility] [address] 0 Office Visit Gastroenterology Essence Chase PA-C [address] [facility] [place] [address] [phone] 0 Office Visit [facility] [address] [place] [address] [phone] Hospital Encounter Surgery Janis Hatch, DO [facility] [place] [address] [phone] Surgery Surgery Janis Hatch, DO [address] [facility] [place] [address] [phone] ESOPHAGOGASTRODUODENOSCOPY (EGD), FLEXIBLE, TRANSORAL, DIAGNOSTIC 0 Office Visit Family Medicine Alexandra Caceres, DO [address] [place] [address] [phone] Imaging Radiology 1 Office Visit Gastroenterology Lyssa Stout CRNP [address] [facility] [address] [phone] Health Maintenance Due Date Last Done Comments [...] of this encounter Implants Implanted Type Area Ammonia Solution Preparer Device Identifier Shelf Expiration Date Model / Serial / Lot Microtech Sure Clip Implanted:Qty: 2 on 06/03/2020 by Janis Hatch DO at OR [facility] Clip N/A: Colon 04/21/2022 [facility]-F-26-2 35-C-R / / [id number] documented as of this encounter Advance Directives Documents on File Type Date Recorded Patient Baker Expl anation Advanced Directive service a [...] Agents on File Name Relationship Healthcare Agent Romainct navya Communication Syed Bustos Spouse Emergency Contact
--- OUTSIDE RECORDS SUMMARY | 2023-05-10 22:18 | External Medical Summary | Summary of Care ---
Author Name Unknown Organization [place] [address] Care Team Providers Care Eyewear Manufacturing Tech Name Role Phone Alexandra Caceres Primary Care Provider [phone] Reason for Visit * Reason Onset Date Comments Advice 06/29/2020 Encounter Details Date Type Department Care Team Description 06/29/2020 Telephone [facility] [place] [address] [place] [address] Naheed Sanchez [address] [place] [address] Advice Allergies Active Allergy Reactions Severity Noted Date Comments Adhesive Tape Itching 04/29/2020 Penicillins Rash 02/12/2008 Perflutren Protein A Microsph 2019 Definity-lower back pain documented as of this encounter (statuses as of 06/30/2020) Medications Medication Sig Dispensed Refills Start Date [...] 120 Vial 11 10/02/2019 Active nystatin (NYSTOP) 713539 UNIT/GM powder Apply topically to affected area [...] breakfast. 90 Cap 3 05/04/2020 Active PEG 4648-FHj-TuAfh-NaCl- NaSulf (GOLYTELY) 227.1 g PACK Drink 2 [...] SYSTM) MISC Freestyle Xochitl 2 14-day Sensor (152026) (2 sensors=28 day/1-month supply) 2 Each 1 05/26/2020 Active Continuous Blood Gluc Verification Lead (FREESTYLE XOCHITL 2 READER SYSTM) KORTNEY Freestyle Xochitl 2 14-day Verification Lead (287140) 1 Package 0 05/26/2020 Active famotidine (PEPCID) [...] [facility]IN [facility]) Inject 1.5mg (one pen) under the skin [...] [facility]) Inject 30 units under the skin once [...] as of this encounter (statuses as of 06/30/2020) Active Problems Problem Noted Date Diabetic ulcer [...] as of this encounter (statuses as of 06/30/2020) Resolved Problems Problem Noted Date Resolved Date [...] pain 01/24/2012 01/17/2017 Genetic Sleep Disorder Research Other*[id number] 05/13/2011 04/07/2016 Obstructive sleep apnea 01/18/2011 12/27/19 [...] as of this encounter (statuses as of 06/30/2020) Immunizations Name Administration Dates Next Due HEP [...] a different contrast." Please advise patient at [phone]. documented in this encounter Plan of Treatment Upcoming Encounters Date Type Specialty Care Team Description 0 Office Visit Hematology Oncology Yelena MohiniZAK 200 [place] [address] [phone] Office Visit Wound Care Prakash Honeycutt PA-C [address] [place], [place] [address] 0 Office Visit Endocrinology Alberta Duque PA-C [address] [place] [address] 0 Office Visit Gastroenterology Essence Chase PA-C [address] [facility] [address] [phone] [facility] [address] [place] [address] [phone] Hospital Encounter Surgery Janis Hatch, DO [address] [facility] [place] [address] [phone] Surgery Surgery Janis Hatch, DO [address] [facility] [place] [address] [phone] ESOPHAGOGASTRODUODENOSCOPY (EGD), FLEXIBLE, TRANSORAL, DIAGNOSTIC 0 Office Visit Family Medicine Alexandra Caceres, DO [address] [place] [address] [phone] Imaging Radiology 1 Office Visit Gastroenterology Lyssa Stout CRNP [address] [facility] [place] [address] [phone] Health Maintenance Due Date Last Done Comments [...] of this encounter Implants Implanted Type Area Batch Tank Controller Device Identifier Shelf Expiration Date Model / Serial / Lot Microtech Sure Clip Implanted:Qty: 2 on 06/03/2020 by Janis Hatch DO at OR [facility] Clip N/A: Colon 04/21/2022 [facility]-F-26-2 35-C-R / / [id number] documented as of this encounter Advance Directives Documents on File Type Date Recorded Patient Automation Engineering Manager Expl 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
--- OUTSIDE RECORDS SUMMARY | 2023-05-10 22:19 | External Medical Summary | Summary of Care ---
Author Name Unknown Organization [facility] Address [place] [address] Care Team Providers Care Evaporator Operator Molasses Name Role Phone NikAlexandra fernandez Primary Care Provider Reason for Visit * Reason Onset Date Comments Test Results 06/29/2020 Encounter Details Date Type Department Care Team Description 06/29/2020 Telephone [facility], [facility] [address] [facility] [place] [address] Lyssa Stout CRNP [address] [facility] [place] [address] [phone] Test Results Allergies Active Allergy Reactions Severity [...] 120 Vial 11 10/02/2019 Active nystatin (NYSTOP) 430051 UNIT/GM powder Apply topically to affected area [...] breakfast. 90 Cap 3 05/04/2020 Active PEG 7514-NPt-TnLpm-NaCl- NaSulf (GOLYTELY) 227.1 g PACK Drink 2 [...] SYSTM) MISC Freestyle Xochitl 2 14-day Sensor (916708) (2 sensors=28 day/1-month supply) 2 Each 1 05/26/2020 Active Continuous Blood Gluc Scutcher Tender (FREESTYLE XOCHITL 2 READER SYSTM) KORTNEY Freestyle Xochitl 2 14-day Scutcher Tender (001845) 1 Package 0 05/26/2020 Active famotidine (PEPCID) [...] pain 01/24/2012 01/17/2017 Genetic Sleep Disorder Research Other*[id number] 05/13/2011 04/07/2016 Obstructive sleep apnea 01/18/2011 12/27/19 [...] encounter Miscellaneous Notes * Telephone Encounter - Caron Escobar RN - 06/29/2020 12:55 PM EDT Spoke with patient and spouse who will picking machine operator some bisacodyl to add to regimen. * Telephone Encounter - Brianne Triana RN - 06/29/2020 12:13 PM EDT ----- Message from ZAK Bolton sent at 06/29/2020 11:51 AM EDT ----- Pls call pt to inform her that KUB showed moderate amt of stool in colon. Already on Linzess 290mcgdaily. Would add Bisacodyl 10mg every other day ZAK Schreiber documented in this encounter Plan of Treatment Upcoming Encounters Date Type Specialty Care Team Description 0 Office Visit Hematology Oncology Tono Sanchez MD [address] [facility], [place] [address] [phone] 0 [facility] [address] [place] [address] [phone] Office Visit Wound Care Prakash Honeycutt PA-C [address], [place] [phone] 0 Office Visit Endocrinology Alberta Duque PA-C [address] [place] [address] 0 Office Visit Gastroenterology Essence Chase PA-C [address] [facility] [place] [address] [phone] Hospital Encounter Surgery Janis Hatch, DO [address] [facility] [place] [address] [phone] Surgery Surgery Janis Hatch, DO [address] [place] [address] [phone] ESOPHAGOGASTRODUODENOSCOPY (EGD), FLEXIBLE, TRANSORAL, DIAGNOSTIC 0 Office Visit Family Medicine Alexandra Caceres, [address] [place] [address] [phone] Imaging Radiology 1 Office Visit Gastroenterology Lyssa Stout CRNP [address] [facility] [place] [place] [address] [phone] Health Maintenance Due Date Last Done Comments [...] this encounter Implants Implanted Type Area Associate Software Engineer Device Identifier Shelf Expiration Date Model / Serial / Lot Microtech Sure Clip Implanted:Qty: 2 on 06/03/2020 by Janis Hatch DO at OR [facility] Clip N/A: Colon 04/21/2022 [facility]-F-26-2 35-C-R / / [id number] documented as of this encounter Advance Directives Documents on File Type Date Recorded Patient Cloth Napping Supervisor Expl anation Advanced Directive service a [...]
--- OUTSIDE RECORDS SUMMARY | 2023-05-10 22:19 | External Medical Summary | Summary of Care ---
Author Name Unknown Organization [facility] Address [place] [address] Care Team Providers Care Capsule Filler Name Role Phone Alexandra Caceres DO Primary Care Provider Encounter Details Date Type Department Care Team Description 06/26/2020 Telephone [facility] [address] [place] [address] Alexandra Caceres DO [address] [place] [address] Allergies Active Allergy Reactions Severity Noted Date Comments Adhesive Tape Itching 04/29/2020 Penicillins Rash 02/12/2008 Perflutren Protein A Microsph 2019 Definity-lower back pain documented as of this encounter (statuses as of 06/26/2020) Medications Medication Sig Dispensed Refills Start Date [...] 120 Vial 11 10/02/2019 Active nystatin (NYSTOP) 485915 UNIT/GM powder Apply topically to affected area [...] breakfast. 90 Cap 3 05/04/2020 Active PEG 1630-UYz-CtFrg-NaCl- NaSulf (GOLYTELY) 227.1 g PACK Drink 2 liters two days before colonoscopy and 2 liters the day before colonoscopy 1 Each 0 05/04/2020 Active MetFORMIN (GLUCOPHAGE) 1000 MG TabletIndications:Ty pe 2 diabetes mellitus with hemoglobin A1c goal of less than 7.0% ([facility]) Take 1 Tab by mouth 2 times [...] SYSTM) MISC Freestyle Xochitl 2 14-day Sensor (155324) (2 sensors=28 day/1-month supply) 2 Each 1 05/26/2020 Active Continuous Blood Gluc Crosstie Inspector (FREESTYLE XOCHITL 2 READER SYSTM) KORTNEY Freestyle Xochitl 2 14-day Crosstie Inspector (725950) 1 Package 0 05/26/2020 Active famotidine (PEPCID) [...] than 7.0% ([facility]) Inject 1.5mg (one pen) under the [...] than 7.0% ([facility]) Inject 30 units under the skin [...] as of this encounter (statuses as of 06/26/2020) Active Problems Problem Noted Date Diabetic ulcer [...] as of this encounter (statuses as of 06/26/2020) Resolved Problems Problem Noted Date Resolved Date [...] pain 01/24/2012 01/17/2017 Genetic Sleep Disorder Research Other*[id number] 05/13/2011 04/07/2016 Obstructive sleep apnea 01/18/2011 12/27/19 [...] as of this encounter (statuses as of 06/26/2020) Immunizations Name Administration Dates Next Due HEP [...] Visit Hematology Oncology Tono Sanchez MD [address] [place] [address], [place] [address] 0 Office Visit [facility] [address] [facility] [address] [phone] Office Visit Wound Care Prakash Honeycutt PA-C [address], [place] [phone] 0 Office Visit Endocrinology Alberta Duque PA-C [address] [place] [address] 0 Office Visit Gastroenterology Essence Chase PA-C [address] [place] [address] [phone] Hospital Encounter Surgery Janis Hatch, DO [address] [place] [address] [phone] Surgery Surgery Janis Hatch, DO [address] [place] [address] [phone] ESOPHAGOGASTRODUODENOSCOPY (EGD), FLEXIBLE, TRANSORAL, DIAGNOSTIC 0 Office Visit Family Medicine Alexandra Caceres, [facility] [address] [phone] Imaging Radiology 1 Office Visit Gastroenterology Lyssa Stout CRNP [address] [place] [address] [phone] Health Maintenance Due Date Last Done Comments [...] this encounter Implants Implanted Type Area Sql Manager Device Identifier Shelf Expiration Date Model / Serial / Lot Microtech Sure Clip Implanted:Qty: 2 on 06/03/2020 by Janis Hatch DO at OR [facility] Clip N/A: Colon 04/21/2022 [facility]-F-26-2 35-C-R / / [id number] documented as of this encounter Advance Directives Documents on File Type Date Recorded Patient Bench Carpenter Expl anation Advanced Directive service a kerri [...]
--- OUTSIDE RECORDS SUMMARY | 2023-05-10 22:19 | External Medical Summary | Summary of Care ---
Author Name Unknown Organization [place] [address] Care Team Providers Care Theater Company Producer Name Role Phone NickiAlexandra Primary Care Provider [phone] Reason for Visit * Reason Comments Dosage Adjustment Via Phone (anticoag Cl inic) Encounter Details Date Type Department Care Team Description 06/24/2020 Pharmacy Pharmacy, [address] [address] [facility] [address] [place] [address] [phone] Type 2 diabetes mellitus with hemoglobin A1c goal of less than 7.0% ([facility])* Allergies Active Allergy Reactions Severity Noted Date Comments Adhesive Tape Itching 04/29/2020 Penicillins Rash 02/12/2008 documented as of this encounter (statuses as of 06/24/2020) Medications Medication Sig Dispensed Refills Start Date [...] 120 Vial 11 10/02/2019 Active nystatin (NYSTOP) 658881 UNIT/GM powder Apply topically to affected area [...] 3 11/19/2019 Active atorvaSTATin (LIPITOR) 40 MG TabletIndications :Dyslipidemia, goal LDL below 70 TAKE 1 TABLET BY MOUTH EVERY NIGHT AT BEDTIME 90 Tab 1 12/30/2019 Active furosemide (LASIX) 20 MG TabletIndications :Localized edema,Venous stasis dermatitis of both lower extremities TAKE 1 TABLET BY MOUTH ONCE DAILY NEEDED FOR EDEMA 30 Tab 5 01/28/2020 Active levothyroxine (LEVOXYL) 200 MCG Tablet Take 1 Tab by mouth daily. 90 Tab 3 02/20/2020 Active pantoprazole (PROTONIX) 20 MG TBECIndications:G astroesophageal reflux [...] breakfast. 90 Cap 3 05/04/2020 Active PEG 8275-QGc-QwAua-Na Cl-NaSulf (GOLYTELY) 227.1 g PACK Drink 2 liters two days before colonoscopy and 2 liters the day before colonoscopy 1 Each 0 05/04/2020 Active MetFORMIN (GLUCOPHAGE) 1000 MG TabletIndications :Type 2 diabetes mellitus with hemoglobin A1c goal of less than 7.0% ([facility]) Take 1 Tab by mouth 2 times a day. 180 Tab 1 2020 Active nadolol (CORGARD) 20 MG Tablet TAKE 2 TABLETS BY MOUTH ONCE DAILY 180 Tab 1 05/12/2020 Active cyclobenzaprine (FLEXERIL) 10 MG Tablet TAKE 1 TABLET ONCE DAILY AT BEDTIME 30 Tab 2 05/21/2020 Active escitalopram (LEXAPRO) 20 MG TabletIndications :Recurrent [...] SYSTM) MISC Freestyle Xochitl 2 14-day Sensor (829417) (2 sensors=28 day/1-month supply) 2 Each 1 05/26/2020 Active Continuous Blood Gluc Hand Bobbin Cleaner (FREESTYLE XOCHITL 2 READER SYSTM) KORTNEY Freestyle Xochitl 2 14-day Hand Bobbin Cleaner (398845) 1 Package 0 05/26/2020 Active famotidine (PEPCID) [...] than 7.0% ([facility]) Inject 1.5mg (one pen) under the skin [...] than 7.0% ([facility]) Inject 30 units under the skin once [...] before supper 60 mL 3 06/24/2020 Active Insulin Aspart 100 UNIT/ML Subcutaneous Solution (NovoLOG) Inject 26 units under the skin before breakfast, 26 units before lunch, and 26 units before supper 60 mL 3 06/19/2020 0 Discontinued documented as of this encounter (statuses as of 06/24/2020) Active Problems Problem Noted Date Diabetic ulcer [...] as of this encounter (statuses as of 06/24/2020) Resolved Problems Problem Noted Date Resolved Date [...] pain 01/24/2012 01/17/2017 Genetic Sleep Disorder Research Other*[id number] 05/13/2011 04/07/2016 Obstructive sleep apnea 01/18/2011 12/27/19 [...] as of this encounter (statuses as of 06/24/2020) Immunizations Name Administration Dates Next Due HEP [...] No 05/25/2020 documented as of this encounter Progress Notes * Indira Hudson, [facility] - 06/24/2020 12:53 PM EDT DM f/u call Diabetes Medications: INCREASE: Novolog, Inject 26 units before breakfast, 26 units before lunch, and 26 units before supper. INCREASE: Lantus pen, 30 units daily Metformin 1000mg, 1 tablet twice a day Trulicity 1.5mg SQ weekly GFR >60 as of 05/29/20 Patient Phone Numbers Called and spoke with patient's . Taking DM meds as instructed. Compliant. Tolerating. Patient's self-increased medications today. He reports the following BG readings: Pre am Post am Pre Lunch Post Lunch Pre pm Post pm HS 277 394 322 236 288 201 299 346 343 Pre am Post am Pre Lunch Post Lunch Pre pm Post pm HS Average 286 #DIV/0! 268 #DIV/0! #DIV/0! #DIV/0! 343 Hi 343 0 299 0 0 0 394 Lo 201 0 236 0 0 0 288 Range 142 0 63 0 0 0 106 BG improving but not at goal. Patient's will check BG on rotation and get a few readings before lunch and supper so can better assess BG. Reports largest meal is supper so likely not coveringsupper. Will increase Novolog to 30 units before supper. No other changes. Diabetes Medications: INCREASE: Novolog, Inject 26 units before breakfast, 26 units before lunch, and 30 units before supper. Lantus pen, 30 units daily Metformin 1000mg, 1 tablet twice a day Trulicity 1.5mg SQ weekly GFR >60 as of 05/29/20 Will f/u next week with inperson appt. Patient to contact clinic with any issues. Indira Hudson RP, Pharm D, BCACP Clinical Pharmacist 06/24/20 12:53 PM documented in this encounter Plan of Treatment Upcoming Encounters Date Type Specialty Care Team Description 0 Cardiac Studies Cardiac Studies Dobutamine [address] [place] [address] 0 Office Visit Hematology Oncology Tono Sanchez MD [address] [place] [address] [phone] 0 Office Visit Pharmacy [facility] [address] [place] [phone] Office Visit Wound Care Prakash Honeycutt PA-C [address] [place] [address] 0 Office Visit Endocrinology Alberta Duque PA-C [address] [place] [address] 0 Office Visit Gastroenterology Essence Chase PA-C [address] [facility] [place] [address] 0 Hospital Encounter Surgery Janis Hatch, DO [address] [place] [address] [phone] Surgery Surgery Janis Hatch, DO [address] [place], [place] [address] [phone] ESOPHAGOGASTRODUODENOSCOPY (EGD), FLEXIBLE, TRANSORAL, DIAGNOSTIC 0 Office Visit Family Medicine Alexandra Caceres, DO [address] [facility], [place] [phone] 0 Imaging Radiology 1 Office Visit Gastroenterology Lyssa Stout CRNP [address], [place] [address] Health Maintenance Due Date Last Done [...] this encounter Implants Implanted Type Area Manager English Device Identifier Shelf Expiration Date Model / Serial / Lot Microtech Sure Clip Implanted:Qty: 2 on 06/03/2020 by Janis Hatch DO at OR [facility] Clip N/A: Colon 04/21/2022 [facility]-F-26-2 35-C-R / / [id number] documented as of this encounter Visit Diagnoses Diagnosis Type 2 diabetes mellitus with hemoglobin A1c goal of less than 7.0% (HCC)- Primary Portal hypertension (HCC) Portal hypertension Esophageal varices (HCC) Esophageal varices without mention of bleeding documented in this encounter Advance Directives Documents on File Type Date Recorded 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
--- OUTSIDE RECORDS SUMMARY | 2023-05-10 22:19 | External Medical Summary | Summary of Care ---
Author Name Unknown Organization [facility] Address [place] [address] Care Team Providers Care Hand Screen Printer Name Role Phone Alexandra Caceres DO Primary Care Provider Encounter Details Date Type Department Care Team Description 06/26/2020 Telephone [facility] [address] [place] [address] Alexandra Caceres DO [address] [place] [address] Allergies Active Allergy Reactions Severity [...] 120 Vial 11 10/02/2019 Active nystatin (NYSTOP) 597914 UNIT/GM powder Apply topically to affected area [...] breakfast. 90 Cap 3 05/04/2020 Active PEG 8922-VFt-FoFht-NaCl- NaSulf (GOLYTELY) 227.1 g PACK Drink 2 liters two days before colonoscopy and 2 liters the day before colonoscopy 1 Each 0 05/04/2020 Active MetFORMIN (GLUCOPHAGE) 1000 MG TabletIndications:Ty pe 2 diabetes mellitus with hemoglobin A1c goal of less than 7.0% ([facility]) Take 1 Tab by mouth 2 [...] SYSTM) MISC Freestyle Xochitl 2 14-day Sensor (001252) (2 sensors=28 day/1-month supply) 2 Each 1 05/26/2020 Active Continuous Blood Gluc Plaster Foreman (FREESTYLE XOCHITL 2 READER SYSTM) KORTNEY Freestyle Xochitl 2 14-day Plaster Foreman (030543) 1 Package 0 05/26/2020 Active famotidine (PEPCID) [...] 7.0% ([facility]) Inject 30 units under the [...] pain 01/24/2012 01/17/2017 Genetic Sleep Disorder Research Other*[id number] 05/13/2011 04/07/2016 Obstructive sleep apnea 01/18/2011 12/27/19 [...] to backpain. Keturah ----- Message ----- From: Duncan, Diagnostic Sent: 06/25/2020 4:52 PM EDT To: Keturah Sanchez MD documented in this encounter Plan of Treatment Upcoming Encounters Date Type Specialty Care Team Description 0 Office Visit Hematology Oncology Tono Sanchez MD [address] [place] [address] [phone] 0 Office Visit Pharmacy [facility] [address] [place] [address] [phone] 0 Office Visit Wound Care Prakash Honeycutt PA-C [address] [place], [place] [phone] 0 Office Visit Endocrinology Alberta Duque PA-C [address] [place], [place] [address] 0 Office Visit [facility]enterology Essence Chase [facility]-C [address] [facility] [address] [phone] Hospital Encounter Surgery Janis Hatch, DO [address] [facility] [address] [phone] Surgery Surgery Janis Hatch, DO [address] [facility] [place] [address] [phone] ESOPHAGOGASTRODUODENOSCOPY (EGD), FLEXIBLE, TRANSORAL, DIAGNOSTIC 0 Office Visit Family Medicine Alexandra Caceres, DO [address] [place] [address] [phone] Imaging Radiology 1 Office Visit Gastroenterology Lyssa Stout CRNP [address] [facility] [place] [address] [phone] Health Maintenance Due Date Last Done Comments [...] of this encounter Implants Implanted Type Area Taker Out Device Identifier Shelf Expiration Date Model / Serial / Lot Microtech Sure Clip Implanted:Qty: 2 on 06/03/2020 by Janis Hatch DO at OR [facility] Clip N/A: Colon 04/21/2022 [facility]-F-26-2 35-C-R / / [id number] documented as of this encounter Advance Directives Documents on File Type Date Recorded 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
--- OUTSIDE RECORDS SUMMARY | 2023-05-10 22:20 | External Medical Summary | Summary of Care ---
Author Name Unknown Organization [place] [address] Care Team Providers Care Direct Response Consultant Name Role Phone NickiAlexandra Daisha MORENO Primary Care Provider [phone] Reason for Visit * Reason Comments Dosage Adjustment Via Phone (anticoag Cl inic) Encounter Details Date Type Department Care Team Description 06/19/2020 Pharmacy Pharmacy, [address] [address] [facility] [address] [place] [address] [phone] Type 2 diabetes mellitus with hemoglobin A1c goal of less than 7.0% ([facility])* Allergies Active Allergy Reactions Severity Noted Date Comments Adhesive Tape Itching 04/29/2020 Penicillins Rash 02/12/2008 documented as of this encounter (statuses as of 06/19/2020) Medications Medication Sig Dispensed Refills Start Date [...] 120 Vial 11 10/02/2019 Active nystatin (NYSTOP) 049319 UNIT/GM powder Apply topically to affected area [...] breakfast. 90 Cap 3 05/04/2020 Active PEG 5405-ILl-WdZad-Na Cl-NaSulf (GOLYTELY) 227.1 g PACK Drink 2 liters two days before colonoscopy and 2 liters the day before colonoscopy 1 Each 0 05/04/2020 Active MetFORMIN (GLUCOPHAGE) 1000 MG TabletIndications :Type 2 diabetes mellitus with hemoglobin A1c goal of less than 7.0% ([facility]) Take 1 Tab by mouth 2 times [...] AT BEDTIME 90 Tab 1 05/21/2020 Active Insulin Pen Needle (BD PEN NEEDLE MINI U/F) 31G X 5 MMIndications:Typ e 2 diabetes mellitus with hemoglobin A1c goal of less than 7.0% ([facility]) Use with lantus daily 100 Each 3 05/22/2020 Active potassium chloride ER 10 MEQ TBCRIndications:H [...] SYSTM) MISC Freestyle Xochitl 2 14-day Sensor (543061) (2 sensors=28 day/1-month supply) 2 Each 1 05/26/2020 Active Continuous Blood Gluc First Crusher (FREESTYLE XOCHITL 2 READER SYSTM) KORTNEY Freestyle Xochitl 2 14-day First Crusher (725031) 1 Package 0 05/26/2020 Active famotidine (PEPCID) [...] a day 30 mL 3 06/19/2020 Active Insulin Aspart 100 UNIT/ML Subcutaneous Solution (NovoLOG) Inject 26 units under the skin before breakfast, 26 units before lunch, and 26 units before supper 60 mL 3 06/19/2020 Active insulin glargine (LANTUS SOLOSTAR) 100 UNIT/ML SOPNIndications:T ype 2 diabetes mellitus with hemoglobin A1c goal of less than 7.0% (HCC) inject 24 units under the skin at bedtime 15 mL 5 03/25/2020 0 Discontinued Insulin Aspart 100 UNIT/ML Subcutaneous Solution (NovoLOG) Inject 24 units under the skin before breakfast, 24 units before lunch, and 24 units before supper 60 mL 3 06/12/2020 0 Discontinued documented as of this encounter (statuses as of 06/19/2020) Active Problems Problem Noted Date Diabetic ulcer [...] as of this encounter (statuses as of 06/19/2020) Resolved Problems Problem Noted Date Resolved Date [...] pain 01/24/2012 01/17/2017 Genetic Sleep Disorder Research Other*[id number] 05/13/2011 04/07/2016 Obstructive sleep apnea 01/18/2011 12/27/19 [...] as of this encounter (statuses as of 06/19/2020) Immunizations Name Administration Dates Next Due HEP [...] Progress Notes * Indira Hudson, [facility] - 06/19/2020 10:52 AM EDT DM f/u call Diabetes Medications: INCREASE: Novolog, Inject 24 units before breakfast, 24 units before lunch, and 24 units before supper- self increased to 26 units before breakfast this morning Lantus pen, 24 units daily- self-increased to 30 units of lantus this morning Metformin 1000mg, 1 tablet twice a day Trulicity 1.5mg SQ weekly GFR >60 as of 05/29/20 Patient Phone Numbers Called and spoke with patient and . Patient's self-increased medications today. Discussed improtance of contacting clinic before making changes and he verbalized understanding. They report the following BG readings: Pre am Post am Pre Lunch Post Lunch Pre pm Post pm HS [phone] 268 337 [phone] Pre am Post am Pre Lunch Post Lunch Pre pm Post pm HS Average 344 #DIV/0! #DIV/0! #DIV/0! 396 #DIV/0! 385 Hi 445 0 0 0 396 0 498 Lo 295 0 0 0 396 0 268 Range 150 0 0 0 0 0 230 BG not at goal. Patient's will check BG on rotation and get a few readings before lunch andsupper so can better assess BG. Will increase Lantus to 30 units daily and Novolog to 26 units before meals. Diabetes Medications: INCREASE: Novolog, Inject 26 units before breakfast, 26 units before lunch, and 26 units before supper. INCREASE: Lantus pen, 30 units daily Metformin 1000mg, 1 tablet twice a day Trulicity 1.5mg SQ weekly GFR >60 as of 05/29/20 Will f/u next week. Patient to contact clinic with any issues. Indira Hudson [facility], Pharm D, BCACP Clinical Pharmacist 06/19/20 10:57 AM documented in this encounter Plan of Treatment Upcoming Encounters Date Type Specialty Care Team Description 0 Office Visit Gastroenterology Lyssa Stout CRNP [address] [place] [address] [phone] Pharmacy Pharmacy [facility] [address] [place] [phone] Cardiac Studies Cardiac Studies Dobutamine [address] [place] [address] 0 Office Visit Hematology Oncology Tono Sanchez MD [address] [place] [address] [phone] 0 Office Visit Pharmacy [facility] [address] [place] [address] [phone] 0 Office Visit Wound Care Prakash Honeycutt, JEYSON [address], [place] [id number] 0 Office Visit Endocrinology Alberta Duque PA-C [address], [place] [id number] 0 Office Visit [facility]ology Ess[facility]-C [address] [facility] [address] [phone] Hospital Encounter Surgery Janis Hatch, DO [address] [facility] [place] [address] [phone] Surgery Surgery Janis Hatch, DO [address] [facility] [place] [address] [phone] ESOPHAGOGASTRODUODENOSCOPY (EGD), FLEXIBLE, TRANSORAL, DIAGNOSTIC 0 Office Visit Family Medicine Alexandra Caceres, DO [address] [place] [address] [phone] Imaging Radiology Health Maintenance Due Date Last [...] this encounter Implants Implanted Type Area Carpenter Helper Maintenance Device Identifier Shelf Expiration Date Model / Serial / Lot [employer] Sure Clip Implanted:Qty: 2 on 06/03/2020 by Janis Hatch DO at [facility] Clip N/A: Colon 04/21/2022 [facility]-[id number] 35-C-[id number] / / [id number] documented as of this encounter Visit Diagnoses Diagnosis Type 2 diabetes mellitus with hemoglobin A1c goal of less than 7.0% (HCC)- Primary Portal hypertension (HCC) Portal hypertension Esophageal varices (HCC) Esophageal varices without mention of bleeding documented in this encounter Advance Directives Documents on File Type Date Recorded 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
--- OUTSIDE RECORDS SUMMARY | 2023-05-10 22:20 | External Medical Summary | Summary of Care ---
Author Name Unknown Organization [place] [address] Care Team Providers Care Research And Development Chemist Name Role Phone NickiAlexandra Primary Care Provider [phone] Reason for Visit * Reason Comments Wound Care Encounter Details Date Type Department Care Team Description 06/09/2020 Office Visit Wound Care, [facility] [address], [place] [id number] Prakash Honeycutt PA-C [address], [place] [id number] Open wound of right great toe, subsequent encounter*; Obesity, morbid (more than 100 lbs over ideal weight or BMI > 40) ([facility]); DM type 2 with diabetic peripheral neuropathy ([facility]); Pressure injury of left heel, stage 1 Allergies Active Allergy Reactions Severity Noted Date Comments Adhesive Tape Itching 04/29/2020 Penicillins Rash 02/12/2008 documented as of this encounter (statuses as of 06/12/2020) Medications Medication Sig Dispensed Refills Start Date [...] 120 Vial 11 10/02/2019 Active nystatin (NYSTOP) 139724 UNIT/GM powder Apply topically to affected area [...] per day. 100 Each 3 11/19/2019 Active SM ASPIRIN ADULT LOW STRENGTH 81 MG TBEC TAKE 1 TABLET BY MOUTH ONCE DAILY 90 Tab 3 12/04/2019 Active Dulaglutide (TRULICITY) 1.5 MG/0.5ML SOPNIndications:Type 2 diabetes mellitus with hemoglobin A1c goal of less than 7.0% (HCC) Inject 1 syringeful once weekly 6 mL 1 12/04/2019 Active atorvaSTATin (LIPITOR) 40 MG TabletIndications:Dy slipidemia, [...] ONCE DAILY 180 Tab 1 02/26/2020 Active insulin glargine (LANTUS SOLOSTAR) 100 UNIT/ML SOPNIndications:Type 2 diabetes mellitus with hemoglobin A1c goal of less than 7.0% (HCC) inject 24 units under the skin at bedtime 15 mL 5 03/25/2020 Active Additional Information Patient taking differently: 30 Units, inject 30 units under the skin at bedtime, Reported on 04/14/2020 oxybutynin (DITROPAN) 5 MG Tablet TAKE 1 TABLET BY MOUTH TWICE DAILY 60 Tab 5 03/27/2020 Active tamsulosin (FLOMAX) 0.4 MG Capsule TAKE 1 CAPSULE BY MOUTH ONCE DAILY 90 Cap 1 04/22/2020 Active linaCLOtide (LINZESS) 290 MCG Capsule Take 1 Cap by mouth daily before breakfast. 90 Cap 3 05/04/2020 Active PEG 6304-NUt-BtYsn-NaCl- NaSulf (GOLYTELY) 227.1 g PACK Drink 2 [...] PEN NEEDLE MINI U/F) 31G X 5 MMIndications:Type 2 diabetes mellitus with hemoglobin A1c goal of less than 7.0% (HCC) Use with lantus daily 100 Each 3 05/22/2020 Active potassium chloride ER 10 MEQ TBCRIndications:Hypo [...] SYSTM) MISC Freestyle Xochitl 2 14-day Sensor (059032) (2 sensors=28 day/1-month supply) 2 Each 1 05/26/2020 Active Continuous Blood Gluc Pastrycook'S Assistant (FREESTYLE XOCHITL 2 READER SYSTM) KORTNEY Freestyle Xochitl 2 14-day Pastrycook'S Assistant (177647) 1 Package 0 05/26/2020 Active famotidine (PEPCID) 20 MG Tablet Take 1 Tab by mouth every night at bedtime. 34 Tab 0 05/29/2020 Active Insulin Aspart 100 UNIT/ML Subcutaneous Solution (NovoLOG) Inject 20 units under the skin before breakfast, 24 units before lunch, and 20 units before supper 60 mL 3 06/05/2020 Active Sucralfate 1 GM/10ML Oral Suspension (Carafate) Take 10 mL by mouth 2 times a day. Use twice daily for 4 weeks 600 mL 0 06/05/2020 Active Hospital, Clinic, or Other Facility Administered Medication Ordered Dose Route Frequency Start Date End Date Status silver sulfadiazine (SILVADENE) 1 % creamIndications:Open wound of right great toe, subsequent encounter,Obesity, morbid (more than 100 lbs over ideal weight or BMI > 40) ([facility]),DM type 2 with diabetic peripheral neuropathy ([facility]),Pressure injury of left heel, stage 1 TOP ONCE 06/09/2020 06/09/2020 Ended documented as of this encounter (statuses as of 06/12/2020) Active Problems Problem Noted Date Diabetic ulcer [...] as of this encounter (statuses as of 06/12/2020) Resolved Problems Problem Noted Date Resolved Date [...] pain 01/24/2012 01/17/2017 Genetic Sleep Disorder Research Other*[id number] 05/13/2011 04/07/2016 Obstructive sleep apnea 01/18/2011 12/27/19 [...] as of this encounter (statuses as of 06/12/2020) Immunizations Name Administration Dates Next Due HEP [...] file Not on file Not on file COVID-19 Exposure Response Date Recorded In the last month, have you been in contact with someone who was confirmed or suspected to have Coronavirus / COVID-19? No / Unsure 05/15/2020 1:01 PM EDT documented as of this encounter Last Filed Vital Signs Vital Sign Reading Time Taken Comments Blood Pressure - - Pulse - - Temperature 36.2 C (97.1 F) 06/09/2020 1:27 PM ED T Respiratory Rate - - [...] No 05/25/2020 documented as of this encounter Patient Instructions * Patient Instructions* Prakash Honeycutt PA-C - 06/09/2020 2:04 PM EDT Continue Silvadene/dry sterile dressing to R 1st toe wound - changed daily. Keep area protected from injury. Keep an eye on the R toe for signs of infection (redness, pain, drainage). XR for R 1st toe (brusing seen today, rule out broken bone) Keep heels protected - Heel suspension boot to L leg, pillow behind calf to R leg. Recommends establishing with a new hanger, find one that you prefer. documented in this encounter Progress Notes * Prakash Honeycutt PA-C - 06/09/2020 1:38 PM EDT WOUND OUTPATIENT FOLLOW-UP NOTE Patient seen today [...] great toe previously treated by podiatry at [facility], the R great toenail removed by her podiatristand she starteddeveloping purulent drainage from around the toenail bed and pad of the toe along with some blood. She was admitted to [facility] 04/14/20- 04/25/20 for R 1st toe infection and cellulitis. Wound was debrided inthe OR. Patient has been currently treating with Silvadene/DSD. Dressing change frequency: every day. No currently on abx. She is doing well today. However, she has developed a new pressure injury onthe R posterior heel. Patient states it have been present since 05/2020. Thinks the wound started from pressure and friction from rubbing on her bed sheets. Currently treating with nothing. She is wheelchair bound. She only uses her electric wheelchair to ambulate.Patient notes her does her daily dressing changes. She was seeing a hanger out by her, but doesn't like him and has not seen him in a while. Current dressing: See Wound Assessment Dressing change frequency: every day RLE Compression: none LLE Compression: none RLE Wt Bearing Offloading: none LLE Wt Bearing Offloading: none RLE Non-Wt Bearing Offloading: none LLE Non-Wt Bearing Offloading: none Offloading Surface for Bed: none Offloading Surface for Chair / Wheelchair: Foam cushion ROS: Pain: no Drainage: no Swelling: mild Erythema: no Fever/Chills: no Malaise: no ROS was negative other than stated above. Collection Date and Time: 04/10/2020 3:31 PM Collected By: UNSPECIFIED,SLIVER LAPPER Received: 04/10/2020 3:32 PM CULTURE, WOUND, SUPERFICIAL, AEROBIC Order: [id number] Status: Final result Visible to patient: No (Inaccessible in Pt Portal) Next appt: 04/28/2020 at 03:40 PM in *Primary Care* (Rajwinder Carter, ) Dx: DM type 2 with diabetic peripheral ne... Ref Range & Units 7d ago Resulting Agency SPECIMEN DESCRIPTION SUPERFICIAL WOUND R GREAT TOE R CULTURE MULTIPLE SPECIES OF AEROBIC BACTERIA NO FURTHER WORKUP ROUTINELY PERFORMED GMICR1 REPORT STATUS 04/13/2020 FINAL GMICR1 Specimen Collected: 04/10/20 15:31 Last Resulted: 04/13/20 14:49 Hemoglobin AIC Results: EXAM RIGHT XR FOOT 3 OR MORE VIEWS 04/14/2020. HISTORY concern for osteo IMPRESSION Diffuse soft tissue edema/swelling, without overt radiographic evidence of osteomyelitis. VASCULAR LAB RESULTS DATE OF EXAMINATION: 04/15/20 INDICATION: R/O PAD ANKLE BRACHIAL INDEX OF THE LOWER EXTREMITIES IMPRESSION: ASHLEY at rest is 0.98 on the right and 1.07 on the left. For the right lower extremity: Lower extremity Doppler Evaluation is normal at rest with no evidence of significant arterial occlusive disease. For the left lower extremity: Lower extremity Doppler Evaluation is normal at rest with no evidence of significant arterial occlusive disease. PPG tracing of the great toe has excellent amplitude. Hemoglobin AIC Results: HEMOGLOBIN, A1C(%) Lucio Dt/Tm Resulted Value Status 04/28/20 4:37P 04/28/20 9.9* FINAL 02/21/20 11:43A 02/21/20 6.7* FINAL 11/26/19 1:31P 11/26/19 6.9* FINAL Tobacco History: Social History Tobacco Use Smoking Status Never Smoker Smokeless Tobacco Never Used WOUND ASSESSMENT: Alteration in Skin Integrity Diabetic Ulcer Anterior;Right;Dorsal;1st Toe Plantar (Active) Wound Image 06/09/20 1300 Primary Dressing Present (removed today) Silvadene 06/09/20 1300 Secondary Dressing Present (removed today) GAUZE 06/09/20 1300 Tertiary Dressing Present (removed today) None 06/09/20 1300 Quaternary Dressing Present (removed today) None 06/09/20 1300 Wound Length (cm) 1 cm 06/09/20 1300 Wound Width (cm) 0.3 cm 06/09/20 1300 Wound Depth (cm) 0.1 cm 06/09/20 1300 Undermining (cm) 0 06/09/20 1300 Sinus Tract (cm) 0 06/09/20 1300 Tunneling (cm) 0 06/09/20 1300 Yellow Fibrinous Slough (%) 76-99% 06/09/20 1300 Granulation Tissue (%) 1-25% 06/09/20 1300 Granulation Tissue Color red 06/09/20 1300 Necrotic Tissue (%) none 06/09/20 1300 Necrotic Tissue Color Not Applicable 06/09/20 1300 Deep Supporting Structure Exposed None 06/09/20 1300 Drainage none 06/09/20 1300 Odor (after cleansing wound) No 06/09/20 1300 Kiley-Wound (Surrounding Skin) Intact;Nontender;Nonerythematous 06/09/20 1300 Evidence of Infection No 06/09/20 1300 Wound Surface Area (cm^2) 0.3 cm^2 06/09/20 1300 Wound Volume (cm^3) 0.03 cm^3 06/09/20 1300 Alteration in Skin Integrity Pressure Injury Left Heel (Active) Wound Image 06/09/20 1300 Primary Dressing Present (removed today) None 06/09/20 1300 Secondary Dressing Present (removed today) None 06/09/20 1300 Tertiary Dressing Present (removed today) None 06/09/20 1300 Quaternary Dressing Present (removed today) None 06/09/20 1300 Wound Length (cm) 3 cm 06/09/20 1300 Wound Width (cm) 1 cm 06/09/20 1300 Wound Depth (cm) 0.1 cm 06/09/20 1300 Undermining (cm) 0 06/09/20 1300 Sinus Tract (cm) 0 06/09/20 1300 Tunneling (cm) 0 06/09/20 1300 Yellow Fibrinous Slough (%) none 06/09/20 1300 Granulation Tissue (%) none 06/09/20 1300 Granulation Tissue Color not applicable 06/09/20 1300 Necrotic Tissue (%) none 06/09/20 1300 Necrotic Tissue Color Not Applicable 06/09/20 1300 Deep Supporting Structure Exposed None 06/09/20 1300 Drainage none 06/09/20 1300 Odor (after cleansing wound) No 06/09/20 1300 Kiley-Wound (Surrounding Skin) Intact;Nontender;Nonerythematous 06/09/20 1300 Evidence of Infection No 06/09/20 1300 Wound Surface Area (cm^2) 3 cm^2 06/09/20 1300 Wound Volume (cm^3) 0.3 cm^3 06/09/20 1300 Alteration in Skin Integrity Proximal;Right;Posterior Thigh (Active) Bruising of her R 1st toe noted. Tender to palpation. ASSESSMENT/PLAN: 1.Ward Grade 2 diabetic ulcer of the R 1st toe w/localized infection and soft tissue necrosis, s/p D&I by Dr. Vazquez 04/16/20 - Healing well. New bruising noted to dorsal toe. 2. T2DM - well controlled. 3. Cirrhosis of the liver. 4. Cerebral Palsy. 5. Venous insufficiency. 6. Morbid Obesity. 7. Limited mobility. 8. New Stage 1 Pressure injury to R posterior heel - No evidence of wound infection today. Continue Silvadene/DSD to R 1st toe - changed daily. XR 2 view of L toes. Offloading: -Heel Protection: Heel suspension boot to LLE, pillow behind R calf. Recommend routine podiatric care. Advised the patient to establish with a new hanger she prefers. New bruising to dorsal R 1st toe. She doesn't recall any trauma to the toe. Toe is tender. She has limited range of motion and strength with bilateral toes. She is neuropathic and has limited sensation in her feet. Will check x-ray to rule out underlying fracture. Advised to keep an eye on the toe for any signs of infection. Follow-up: 6 weeks Prakash Honeycutt PA-C 06/09/2020 1:39 PM Wound Care, [address] [address] RLE 1st toe DFU healing well. Bruising about joint concerning for fracture confirmed by XR; referral to Orthopaedics placed. Continue Local care and offloading as above. Pt seen and examined by me. Agree with treatment and plan. Jefferson Rios MD 06/12/2020 8:54 AM documented in this encounter Nursing Notes * Gildardo Carrington, RN - 06/09/2020 2:57 PM EDT Silvadene impregnated gauze with a DSD placed over R 1st toe wound. documented in this encounter Miscellaneous Notes * Result Eliseo - Prakash Honeycutt PA-C - 06/10/2020 4:21 PM EDT Curvilinear lucency at the plantar aspect of the base of the 1st distal phalanx may reflect a nondisplaced fracture. This correlates with tenderness and area of bruising on the dorsum of the toe. A/P: Nondisplaced fracture of base of R 1st distal phalanx. Referral to orthopaedics. Notified patient. Schedulers: please schedule in ortho clinic to be evaluated in the next week. Prakash Honeycutt PA-C 06/10/2020 4:10 PM Wound Care, [facility] [address] [facility] [address] documented in this encounter Plan of Treatment Upcoming Encounters Date Type Specialty Care Team Description 0 Pharmacy Pharmacy [address] [address] [phone] Office Visit Orthopedics Jayme Benz MD [address] [place] [address] [phone] Office Visit Gastroenterology Lyssa Stout CRNP [address] [place] [address] [phone] Office Visit Hematology Oncology Tono Sanchez MD [address] [place] [address] [phone] 0 Office Visit Pharmacy [facility] [address] [place] [address] [phone] Office Visit Wound Care Prakash Honeycutt, JEYSON [address], [place] [address] 0 Office Visit Endocrinology Alberta Duque, JEYSON [address], [place] [id number] 0 Office Visit Gastroenterology Essence Chase PA-C [address] [facility] [address] [phone] Office Visit Family Medicine Rajwinder Carter, DO [address] [place] [address] [phone] Hospital Encounter Surgery Janis Hatch, DO [address] [facility] [place] [address] [phone] Surgery Surgery Janis Hatch, DO [address] [facility] [place] [address] [phone] ESOPHAGOGASTRODUODENOSCOPY (EGD), FLEXIBLE, TRANSORAL, DIAGNOSTIC 0 Imaging Radiology Health Maintenance Due Date [...] of this encounter Implants Implanted Type Area Scientific Technical Writer Device Identifier Shelf Expiration Date Model / Serial / Lot Microtech Sure Clip Implanted:Qty: 2 on 06/03/2020 by Janis Hatch DO at OR [facility] Clip N/A: Colon 04/21/2022 [facility]-F-26-2 35-C-R / / [id number] documented as of this encounter Procedures Procedure Name Priority Date/Time Associated Diagnosis Comments XR TOES 2 OR MORE VIEWS Routine 06/09/2020 2:42 PM EDT Open wound of right great toe, subsequent encounter Obesity, morbid (more than 100 lbs over ideal weight or BMI > 40) (HCC) DM type 2 with diabetic peripheral neuropathy (HCC) Pressure injury of left heel, stage 1 documented in this encounter Results * XR TOES 2 OR MORE VIEWS (06/09/2020 2:42 PM EDT) Specimen Impressions Performed At IMPRESSION Curvilinear lucency at the plantar aspect of the base of the 1st distal phalanx may reflect a nondisplaced fracture. Correlate for focal tenderness to this region. [facility] Narrative Performed At EXAM XR TOES 2 OR MORE VIEWS-06/09/2020 2:42 pm HISTORY R/O fx of R 1st toe. COMPARISON Right hallux radiographs 05/25/2020. TECHNIQUE Four views of the right hallux. FINDINGS Curvilinear lucency along the plantar aspect of the base of the 1st distal phalanx. No dislocation. [facility] Procedure Note Interface, Rad In - 06/10/2020 3:40 PM EDT EXAM XR TOES 2 OR MORE VIEWS-06/09/2020 2:42 pm HISTORY R/O fx of R 1st toe. COMPARISON Right hallux radiographs 05/25/2020. TECHNIQUE Four views of the right hallux. FINDINGS Curvilinear lucency along the plantar aspect of the base of the 1st distalphalanx. No dislocation. IMPRESSION IMPRESSION Curvilinear lucency at the plantar aspect of the base of the 1st distalphalanx may reflect a nondisplaced fracture. Correlate for focaltenderness to this region. [facility] documented in this encounter Visit Diagnoses Diagnosis Open wound of right great toe, subsequent encounter- Primary Obesity, morbid (more than 100 lbs over ideal weight or BMI > 40) (HCC) Morbid obesity DM type 2 with diabetic peripheral neuropathy (HCC) Type II or unspecified type diabetes mellitus with neurological manifestations, not stated as uncontrolled Pressure injury of left heel, stage 1 Portal hypertension (HCC) Portal hypertension Esophageal varices (HCC) Esophageal varices without mention of bleeding documented in this encounter Administered Medications Inactive Administered Medications - up to 3 most recent administrations Medication Order MAR Action Action Date Dose Rate Site silver sulfadiazine (SILVADENE) 1 % cream Topical, ONCE, 06/09/20 at 1445, For 1 dose, Apply to wound , Given 06/09/2020 2:56 PM EDT documented in this encounter Advance Directives Documents on File Type Date Recorded Patient Dental Treatment Coordinator Expl anation Advanced Directive service a [...]
--- OUTSIDE RECORDS SUMMARY | 2023-05-10 22:20 | External Medical Summary | Summary of Care ---
Author Name Unknown Organization [place] [address] Care Team Providers Care Molded Goods Operator Name Role Phone NikMaikel fernandez Daisha MORENO Primary Care Provider Reason for Visit * Reason Comments eRx-Medication Refill Encounter Details Date Type Department Care Team Description 06/11/2020 Refill [place] [address], [place] [id number] Rajwinder Carter [address] [place] [address] [phone] Type 2 diabetes mellitus with hemoglobin A1c goal of less than 7.0% (HCC) Allergies Active Allergy Reactions Severity Noted [...] 120 Vial 11 10/02/2019 Active nystatin (NYSTOP) 301679 UNIT/GM powder Apply topically to affected area [...] ONCE DAILY 90 Tab 3 12/04/2019 Active atorvaSTATin (LIPITOR) 40 MG TabletIndications :Dyslipidemia, [...] breakfast. 90 Cap 3 05/04/2020 Active PEG 0007-WGo-BsIam-Na Cl-NaSulf (GOLYTELY) 227.1 g PACK Drink 2 [...] SYSTM) MIS Freestyle Xochitl 2 14-day Sensor (636819) (2 sensors=28 day/1-month supply) 2 Each 1 05/26/2020 Active Continuous Blood Gluc Chiropractic Assistant (FREESTYLE XOCHITL 2 READER SYSTM) KORTNEY Freestyle Xochitl 2 14-day Chiropractic Assistant (723684) 1 Package 0 05/26/2020 Active famotidine (PEPCID) [...] once weekly 6 mL 3 06/12/2020 Active Dulaglutide (TRULICITY) 1.5 MG/0.5ML SOPNIndications:T ype 2 diabetes mellitus with hemoglobin A1c goal of less than 7.0% ([facility]) Inject 1 syringeful once weekly 6 mL 1 12/04/2019 0 Discontinued Insulin Aspart 100 UNIT/ML Subcutaneous Solution (NovoLOG) Inject 20 units under the skin before breakfast, 24 units before lunch, and 20 units before supper 60 mL 3 06/05/2020 0 Discontinued documented as of this encounter [...] pain 01/24/2012 01/17/2017 Genetic Sleep Disorder Research Other*[id number] 05/13/2011 04/07/2016 Obstructive sleep apnea 01/18/2011 12/27/19 [...] PM EDT documented as of this encounter Functional Status [...] Notes * Telephone Encounter - Bunny Adair [facility] - 06/12/2020 4:18 PM EDT Signed Prescriptions: Disp Refills Trulicity 1.5 MG/0.5ML Subcutaneous Soluti*6 mL 3 Sig: Inject 1.5mg (one pen) under the skin once weeklyAuthorizing Provider: MAIKEL CACERES User: BUNNY ADAIR * Telephone Encounter - Radha Joshi, [facility] - 06/12/2020 12:54 PM EDT Pending Prescriptions: Disp Refills Trulicity 1.5 MG/0.5ML Subcutaneous Solut*6 mL 0 Sig: inject 1 syringeful once weekly documented in this encounter Plan of Treatment Upcoming Encounters Date Type Specialty Care Team Description 0 Pharmacy [facility] [address], [place] [id number] Type 2 diabetes mellitus with hemoglobin A1c goal of less than 7.0% ([facility])* 0 Office Visit Orthopedics Jayme Benz MD [address], [place] [id number] 0 Pharmacy [place] [address] [place] [address] [phone] Office Visit Gastroenterology Lyssa Stout CRNP [address] [place] [address] [phone] Cardiac Studies Cardiac Studies [facility] [address], [place] [id number] 0 Office Visit Hematology Oncology Tono Sanchez MD [address] [facility] [place] [id number] 0 Office Visit Pharmacy [facility] [address] [place] [address] [phone] Office Visit Wound Care Prakash Honeycutt PA-C [address] [place], [place] [id number] 0 Office Visit Endocrinology Alberta Duque PA-C [address] [place], [place] [id number] 0 Office Visit Gastroenterology Essence Chase PA-C [address] [place], [place] [address] [phone] Hospital Encounter Surgery Janis Hatch, DO [address] [place], [place] [address] [phone] Surgery Surgery Janis Hatch, DO [address] [place], [place] [address] [phone] ESOPHAGOGASTRODUODENOSCOPY (EGD), FLEXIBLE, TRANSORAL, DIAGNOSTIC 0 Office Visit Family Medicine Maikel Caceres, DO [address] [place] [address] [phone] Imaging Radiology Health Maintenance Due Date [...] this encounter Implants Implanted Type Area Sales Account Coordinator Device Identifier Shelf Expiration Date Model / Serial / Lot Microtech Sure Clip Implanted:Qty: 2 on 06/03/2020 by Janis Hatch DO at OR [facility] Clip N/A: Colon 04/21/2022 [facility]-F-26-2 35-C-R / / [id number] documented as of this encounter Visit Diagnoses Diagnosis Type 2 diabetes mellitus with hemoglobin A1c goal of less than 7.0% (HCC) Type 2 diabetes mellitus with hemoglobin A1c goal of less than 7.0% (HCC)- Primary Portal hypertension (HCC) Portal hypertension Esophageal varices (HCC) Esophageal varices without mention of bleeding documented in this encounter Advance Directives Documents on File Type Date Recorded 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
--- OUTSIDE RECORDS SUMMARY | 2023-05-10 22:20 | External Medical Summary | Summary of Care ---
Author Name Unknown Organization [place] [address] Care Team Providers Care Maritime Engineer Name Role Phone NickiAlexandra Daisha MORENO Primary Care Provider [phone] Reason for Referral * Evaluate & Treat - Unlimited Visits (Within 10 days (routine)) Status Reason Specialty Diagnoses / Procedures Referred By Contact Referred To Contact Pending Review Specialty Services Required Orthopaedic Surgery / Orthopedics Diagnoses Closed nondisplaced fracture of distal phalanx of right great toe, initial encounter Prakash Honeycutt PA-C [address] [place] [address] Reason for Visit * Reason Onset Date Comments Abnormal Test Results 06/10/2020 Encounter Details Date Type Department Care Team Description 06/10/2020 Telephone [facility] [address] [place] [address] Prakash Honeycutt PA-C [address] [place] [address] [phone] Abnormal Test Results Allergies Active Allergy Reactions Severity Noted Date Comments Adhesive Tape Itching 04/29/2020 Penicillins Rash 02/12/2008 documented as of this encounter (statuses as of 06/15/2020) Medications Medication Sig Dispensed Refills Start Date [...] 120 Vial 11 10/02/2019 Active nystatin (NYSTOP) 547566 UNIT/GM powder Apply topically to affected area [...] breakfast. 90 Cap 3 05/04/2020 Active PEG 1714-ECz-HyCrg-Na Cl-NaSulf (GOLYTELY) 227.1 g PACK Drink 2 [...] SYSTM) MISC Freestyle Xochitl 2 14-day Sensor (258302) (2 sensors=28 day/1-month supply) 2 Each 1 05/26/2020 Active Continuous Blood Gluc Therapeutic Mentor (FREESTYLE XOCHITL 2 READER SYSTM) KORTNEY Freestyle Xochitl 2 14-day Therapeutic Mentor (557116) 1 Package 0 05/26/2020 Active famotidine (PEPCID) [...] a day. 28 Cap 0 06/09/2020 Active Dulaglutide (TRULICITY) 1.5 MG/0.5ML SOPNIndications:T ype 2 diabetes mellitus with hemoglobin A1c goal of less than 7.0% ([facility]) Inject 1 syringeful once weekly 6 mL 1 12/04/2019 0 Discontinued Insulin Aspart 100 UNIT/ML Subcutaneous Solution (NovoLOG) Inject 20 units under the skin before breakfast, 24 units before lunch, and 20 units before supper 60 mL 3 06/05/2020 0 Discontinued documented as of this encounter (statuses as of 06/15/2020) Active Problems Problem Noted Date Diabetic ulcer [...] as of this encounter (statuses as of 06/15/2020) Resolved Problems Problem Noted Date Resolved Date [...] pain 01/24/2012 01/17/2017 Genetic Sleep Disorder Research Other*[id number] 05/13/2011 04/07/2016 Obstructive sleep apnea 01/18/2011 12/27/19 [...] as of this encounter (statuses as of 06/15/2020) Immunizations Name Administration Dates Next Due HEP [...] encounter Miscellaneous Notes * Telephone Encounter - Kelsea Ruiz OSA - 06/15/2020 3:32 PM EDT Appt scheduled on 06/16 with [facility] [place] Telephone Encounter - Prakash Honeycutt PA-C - 06/10/2020 4:22 PM EDT XR shows Nondisplaced fracture of base of R 1st distal phalanx. Correlates with dorsal toe bruisingand tenderness. Referral to orthopaedics. Called patient and advised of XR findings. Schedulers: Please schedule patient to be evaluated in Orth clinic. Prakash Honeycutt PA-C 06/10/2020 4:28 PM [facility] [address] [facility] [address] documented in this encounter Plan of Treatment Upcoming Encounters Date Type Specialty Care Team Description 0 Office Visit Orthopedics Jayme Benz MD [address] [place] [address] [phone] Pharmacy Pharmacy [facility] [address] [place] [address] [phone] Office Visit Gastroenterology Lyssa Stout CRNP [address] [place] [address] [phone] Cardiac Studies Cardiac Studies Dobutamine [address] [place] [address] 0 Office Visit Hematology Oncology Tono Sanchez MD [address] [place] [address] [phone] 0 Office Visit Pharmacy [facility] [address] [place] [address] [phone] Office Visit Wound Care Prakash Honeycutt PA-C [address] [place] [address] [phone] Office Visit Endocrinology Alberta Duque PA-C [address] [place], [place] [phone] 0 Office Visit Gastroenterology Essence Chase PA-C [address] [place] [address] [phone] Hospital Encounter Surgery Janis Hatch, DO [address] [place] [address] [phone] Surgery Surgery Janis Hatch, DO [address] [place] [address] [phone] ESOPHAGOGASTRODUODENOSCOPY (EGD), FLEXIBLE, TRANSORAL, DIAGNOSTIC 0 Office Visit Family Medicine Alexandra Caceres, DO [address] [facility] [address] [phone] Imaging Radiology Scheduled Referrals Name Type Priority Associated Diagnoses Orde r Schedule ORTHOPAEDICS REFERRAL OP Referral Within 10 days (routine) Closed nondisplaced fracture of distal phalanx of right great toe, initial encounter Ordered: 06/10/2020 Health Maintenance Due Date Last Done Comments [...] of this encounter Implants Implanted Type Area Tail Worker Device Identifier Shelf Expiration Date Model / Serial / Lot Microtech Sure Clip Implanted:Qty: 2 on 06/03/2020 by Janis Hatch DO at OR [facility] Clip N/A: Colon 04/21/2022 [facility]-F-26-2 35-C-R / / [id number] documented as of this encounter Visit Diagnoses Diagnosis Closed nondisplaced fracture of distal phalanx of right great toe, initial encounter- Primary Portal hypertension (HCC) Portal hypertension Esophageal varices (HCC) Esophageal varices without mention of bleeding documented in this encounter Advance Directives Documents on File Type Date Recorded Patient Behaviorist Expl anation Advanced Directive service a kerri [...]
--- OUTSIDE RECORDS SUMMARY | 2023-05-10 22:20 | External Medical Summary | Summary of Care ---
Author Name Unknown Organization [place] [address] Care Team Providers Care Passenger Car Upholsterer Apprentice Name Role Phone Maikel Caceres DO Primary Care Provider Reason for Visit * Reason Onset Date Comments Medication Refill 06/23/2020 UPDATED RX Encounter Details Date Type Department Care Team Description 06/23/2020 Refill [facility] [address], [place] [id number] Maikel Caceres DO [address] [place] [address] [phone] Type 2 diabetes mellitus with hemoglobin A1c goal of less than 7.0% ([facility]) Allergies Active Allergy Reactions Severity Noted Date Comments Adhesive Tape Itching 04/29/2020 Penicillins Rash 02/12/2008 documented as of this encounter (statuses as of 06/23/2020) Medications Medication Sig Dispensed Refills Start Date [...] 120 Vial 11 10/02/2019 Active nystatin (NYSTOP) 043904 UNIT/GM powder Apply topically to affected area [...] 3 11/19/2019 Active atorvaSTATin (LIPITOR) 40 MG TabletIndications: Dyslipidemia, goal LDL below 70 TAKE 1 TABLET BY MOUTH EVERY NIGHT AT BEDTIME 90 Tab 1 12/30/2019 Active furosemide (LASIX) 20 MG TabletIndications: Localized edema,Venous stasis dermatitis of both lower extremities TAKE 1 TABLET BY MOUTH ONCE DAILY NEEDED FOR EDEMA 30 Tab 5 01/28/2020 Active levothyroxine (LEVOXYL) 200 MCG Tablet Take 1 Tab by mouth daily. 90 Tab 3 02/20/2020 Active pantoprazole (PROTONIX) 20 MG TBECIndications:Ga stroesophageal reflux disease, esophagitis presence not specified,NAFLD (nonalcoholic [...] breakfast. 90 Cap 3 05/04/2020 Active PEG 2144-QUs-NvEko-NaC l-NaSulf (GOLYTELY) 227.1 g PACK Drink 2 liters two days before colonoscopy and 2 liters the day before colonoscopy 1 Each 0 05/04/2020 Active MetFORMIN (GLUCOPHAGE) 1000 MG TabletIndications: Type 2 diabetes mellitus with hemoglobin A1c goal of less than 7.0% ([facility]) Take 1 Tab by mouth 2 [...] SYSTM) MISC Freestyle Xochitl 2 14-day Sensor (625166) (2 sensors=28 day/1-month supply) 2 Each 1 05/26/2020 Active Continuous Blood Gluc Arnp (FREESTYLE XOCHITL 2 READER SYSTM) KORTNEY Freestyle Xochitl 2 14-day Arnp (831158) 1 Package 0 05/26/2020 Active famotidine (PEPCID) [...] before supper 60 mL 3 06/19/2020 Active BD Pen Needle Mini U/F 31G X 5 MM (Insulin Pen Needle)Indications :Type 2 diabetes mellitus with hemoglobin A1c goal of less than 7.0% (HCC) Use to inject insulin four times daily; E11.42 400 Each 3 06/23/2020 Active Insulin Pen Needle (BD PEN NEEDLE MINI U/F) 31G X 5 MMIndications:Type 2 diabetes mellitus with hemoglobin A1c goal of less than 7.0% (HCC) Use with lantus daily 100 Each 3 05/22/2020 0 Discontinue d(Refill) documented as of this encounter (statuses as of 06/23/2020) Active Problems Problem Noted Date Diabetic ulcer [...] as of this encounter (statuses as of 06/23/2020) Resolved Problems Problem Noted Date Resolved Date [...] pain 01/24/2012 01/17/2017 Genetic Sleep Disorder Research Other*[id number] 05/13/2011 04/07/2016 Obstructive sleep apnea 01/18/2011 12/27/19 [...] as of this encounter (statuses as of 06/23/2020) Immunizations Name Administration Dates Next Due HEP [...] encounter Miscellaneous Notes * Telephone Encounter - Gloria Quezada RPh - 06/23/2020 8:11 AM EDT Signed Prescriptions: Disp Refills BD Pen Needle Mini U/F 31G X 5 MM (Insulin*400 Ea*3 Sig: Use to inject insulin four times daily; E11.42 Authorizing Provider: MAIKEL CACERES Ordering User: GLORIA QUEZADA * Telephone Encounter - Melissa Padilla CPhT - 06/23/2020 8:04 AM EDT PT IS INJECTING INSULIN 4X DAILY; RX EDITED FOR SAME. Pending Prescriptions: Disp Refills BD Pen Needle Mini U/F 31G X 5 MM (Insuli*400 Ea*3 Sig: Use to inject insulin four times daily; E11.42 Last Office/Telemedicine Visit: 06/01/2020 Next Office Visit: 08/19/2020 Scheduled Provider(s): Maikel Caceres, DO If no future appointments scheduled, and last appointment is greater than a year ago, please schedule patient for a follow-up appointment Last date the medication was ordered: 05/22/2020 Pharmacy: Is this request for a controlled substance?No Urine Drug Screen:No results found. However, due to the size of the patient record, not all encounters were searched. Please check Results Review for a complete set of results. Patient Phone Numbers Labs: Lab Results Component Value Date/Time CREAT 0.7 06/09/2020 05:29 PM POTASSIUM 4.2 06/09/2020 05:29 PM TSH 5.15 (H) 02/21/2020 11:43 AM LDLCALC 43 04/05/2019 06:40 AM LDLDIRECT 46 02/21/2020 11:43 AM ALT 25 05/29/2020 11:23 AM HGBA1C 11.0 (H) 05/26/2020 04:44 AM documented in this encounter Plan of Treatment Upcoming Encounters Date Type Specialty Care Team Description 0 Office Visit Gastroenterology [facility] Stout [facility] [address] [phone] 0 Pharmacy Pharmacy [address] [address] [phone] 0 Cardiac Studies Cardiac Studies Dobutamine [address] [facility] [place] [address] 0 Office Visit Hematology Oncology Tono Sanchez MD [address] [place] [address] [phone] 0 Office Visit Pharmacy [facility] [address] [place] [address] [phone] 0 Office Visit Wound Care Prakash Honeycutt, JEYSON [address] [place], [place] [address] 0 Office Visit Endocrinology Alberta Duque, JEYSON [address] [place], [place] [address] 0 Office Visit Gastroenterology Essence Chase, JEYSON [address] [facility] [place] [address] [phone] Hospital Encounter Surgery Janis Hatch, DO [address] [facility] [place] [address] [phone] Surgery Surgery Janis Hatch, DO [address] [facility] [place] [address] [phone] ESOPHAGOGASTRODUODENOSCOPY (EGD), FLEXIBLE, TRANSORAL, DIAGNOSTIC 0 Office Visit Family Medicine Maikel Caceres, [address] [place] [address] [phone] 0 Imaging Radiology Health Maintenance Due Date [...] of this encounter Implants Implanted Type Area Circulation Director Device Identifier Shelf Expiration Date Model / Serial / Lot Microtech Sure Clip Implanted:Qty: 2 on 06/03/2020 by Janis Hatch DO at OR [facility] Clip N/A: Colon 04/21/2022 [facility]-F-26-2 35-C-R / / [id number] documented as of this encounter Visit Diagnoses Diagnosis Type 2 diabetes mellitus with hemoglobin A1c goal of less than 7.0% (HCC) Portal hypertension (HCC) Portal hypertension Esophageal varices (HCC) Esophageal varices without mention of bleeding documented in this encounter Advance Directives Documents on File Type Date Recorded 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
--- OUTSIDE RECORDS SUMMARY | 2023-05-10 22:20 | External Medical Summary | Summary of Care ---
Author Name Unknown Organization [place] [address] Care Team Providers Care Virtual Assistant For Advertisers Name Role Phone NickiAlexandra Daisha MORENO Primary Care Provider Reason for Visit * Reason Comments Re-Check chirrosis Encounter Details Date Type Department Care Team Description 06/23/2020 Office Visit Gastroenterology, [facility] 132 [facility] [place] [address] Lyssa Stout CRNP 132 [place] [address] [phone] Right upper quadrant abdominal pain*; Ambulatory dysfunction; Cirrhosis of liver without ascites, unspecified hepatic cirrhosis type (HCC); NG (nonalcoholic steatohepatitis) Allergies Active Allergy Reactions [...] 120 Vial 11 10/02/2019 Active nystatin (NYSTOP) 665077 UNIT/GM powder Apply topically to affected area [...] breakfast. 90 Cap 3 05/04/2020 Active PEG 0853-DJr-WjDmy-NaCl- NaSulf (GOLYTELY) 227.1 g PACK Drink 2 liters two days before colonoscopy and 2 liters the day before colonoscopy 1 Each 0 05/04/2020 Active MetFORMIN (GLUCOPHAGE) 1000 MG TabletIndications:Ty pe 2 diabetes mellitus with hemoglobin A1c goal of less than 7.0% ([facility]) Take 1 Tab by mouth 2 [...] SYSTM) MISC Freestyle Xochitl 2 14-day Sensor (095964) (2 sensors=28 day/1-month supply) 2 Each 1 05/26/2020 Active Continuous Blood Gluc Safety Engineer Pressure Vessels (FREESTYLE XOCHITL 2 READER SYSTM) KORTNEY Freestyle Xochitl 2 14-day Safety Engineer Pressure Vessels (700421) 1 Package 0 05/26/2020 Active famotidine (PEPCID) [...] daily; E11.42 400 Each 3 06/23/2020 Active documented as of this encounter (statuses [...] pain 01/24/2012 01/17/2017 Genetic Sleep Disorder Research Other*[id number] 05/13/2011 04/07/2016 Obstructive sleep apnea 01/18/2011 12/27/19 [...] Sign Reading Time Taken Comments Blood Pressure 114/64 06/23/2020 1:14 PM EDT Pulse - - Temperature 36.6 C (97.9 F) 06/23/2020 1:14 PM ED T Respiratory Rate - - [...] Progress Notes * Lyssa Stout CRNP - 06/23/2020 1:00 PM EDT DATE OF SERVICE: 06/23/2020 REFERRING PHYSICIAN: Rajwinder Carter DO CC: F/U after endoscopies; hx of NG cirrhosis HPI: Shaina Bustos is 65 yr old female pt w Hx of CP, NG cirrhosis, DM-2, hypothyroidism, Sleep apnea on CPAP, anemia, constipation who is here for f/u. She is c/o mostly of R sided abd pain. Pain not associated w eating and she reports [...] varices, gastritis. Colon polyps (TAs), internal hemorrhoids. EGD/Colonoscopy 06/03/2020: - One 5 mm polyp [...] of less than 7.0% ([facility]) 09/26/2013 ICD-10 update of inactive term Family History Problem Relation Age of Onset Heart Disorder Father of ME at age 61 Diabetes Father Heart Disorder Mother of ME age 72 Cancer None Arthritis None Stroke [...] Hatch DO at OR [facility] DENTAL SURGERY PROCEDURE NEC wisdom teeth x [...] Hatch DO at OR [facility] PELVIS/HIP JOINT SURGERY NEC teenager aid in walking REPAIR/GRAFT ACHILLES TENDON age 40 aid in walking Social History Tobacco Use Smoking status: Never Smoker Smokeless tobacco: Never Used Substance Use Topics Alcohol use: No Drug use: No Comment: too much soda Review of patient's allergies indicates: Allergen Reactions Adhesive Tape Itching Pcn [Penicillins] Rash Current Outpatient Medications Medication Sig Dispense Refill BD Pen Needle Mini U/F 31G X 5 MM (Insulin Pen Needle) Use to inject insulin four times daily; E11.42 400 Each 3 Insulin Aspart 100 UNIT/ML Subcutaneous Solution (NovoLOG) Inject 26 units under the skin before breakfast, 26 units before lunch, and 26 units before supper 60 mL 3 Lantus [...] the skin once weekly 6 mL 3 Cephalexin 500 MG Oral Capsule (KEFLEX) Take 1 Cap by mouth 2 times a day. 28 Cap 0 Sucralfate 1 GM/10ML Oral Suspension (Carafate) Take 10 mL by mouth 2 times a day. Use twice daily for 4 weeks 600 mL 0 famotidine (PEPCID) 20 MG Tablet Take 1 Tab by mouth every night at bedtime. 34 Tab 0 Clindamycin HCl 300 MG Capsule Take 2 Caps by mouth 3 times a day. 40 Cap 0 Continuous Blood Gluc Safety Engineer Pressure Vessels (FREESTYLE XOCHITL 2 READER SYSTM) KORTNEY Freestyle Xochitl 2 14-day Safety Engineer Pressure Vessels (371026) 1 Package 0 Continuous Blood Gluc Sensor (FREESTYLE XOCHITL 2 SENSOR SYSTM) MISC Freestyle Xochitl 2 14-day Sensor (888435) (2 sensors=28 day/1-month supply) 2 Each 1 [...] BY MOUTH ONCE DAILY 180 Tab 1 MetFORMIN (GLUCOPHAGE) 1000 MG Tablet Take 1 Tab by mouth 2 times a day. 180 Tab 1 linaCLOtide (LINZESS) 290 MCG Capsule Take 1 Cap by mouth daily before breakfast. 90 Cap 3 PEG 5113-LWt-EdEhd-NaCl-NaSulf (GOLYTELY) 227.1 g PACK Drink 2 liters two days before colonoscopy and 2 liters the day before colonoscopy 1 Each 0 tamsulosin (FLOMAX) 0.4 MG Capsule TAKE 1 CAPSULE BY MOUTH ONCE DAILY 90 Cap 1 oxybutynin (DITROPAN) 5 MG Tablet TAKE 1 TABLET BY MOUTH TWICE DAILY 60 Tab 5 pantoprazole (PROTONIX) 20 MG TBEC TAKE 2 TABLETS BY MOUTH ONCE DAILY 180 Tab 1 levothyroxine (LEVOXYL) 200 MCG Tablet Take 1 [...] once per day. 100 Strip 3 Lancets MIS Use to test once per day. 100 Each 3 Albuterol Sulfate (ALBUTEROL HFA) 108 (90 BASE) MCG/ACT inhaler Inhale 2 Puffs by mouth every 4 hours as needed for Cough or Wheezing. With spacer 16 g 1 nystatin (NYSTOP) 422726 UNIT/GM powder Apply topically to affected area [...] by mouth daily. CENTRUM SILVER PO TABS 1 tab daily 1 Tab 0 REVIEW OF SYSTEMS: See HPI above; All other findings negative. EXAM: BP 114/64 | Temp 36.6 C (97.9 F) GENERAL: Well developed and well nourished in no acute distress. SKIN: No rashes, ulcers, jaundice or spider angiomata. HEENT: Normocephalic, sclera clear. NECK: Supple, trachea midline, no JVD LUNGS: Clear to auscultation bilaterally, no respiratory distress or accessory muscles used. HEART: Regular rate & rhythm, no murmurs and no gallops. ABDOMEN: Normal bowel sounds, soft, TTP mid R side EXTREMITIES: No palmar erythema, + generalized ankle edema, no skin discoloration, no clubbing, no cyanosis. NEURO: Pt has CP, wheelchair dependent. ASSESSMENT AND PLAN: Shaina Bustos is a 64 year old female w NALFD Cirrhosis, varices, anemia, constipation. MELD 6. She is c/o today of R sided abd pain ? Related to constipation. - KUB to assess stool burden - Continue Protonix to 40mg daily given indigestion, GERD control, Carafate slurry. Repeat EGD 08/05 to eval healing of erosive esophagitis. - Obtain MELD labs q3-6months. - Last EGD 05/2020 Grad II non bleeding varices, portal HTN, erosive esophagitis. She is on Nadolol 40mg daily, average HR mid 60s. - Last Colonoscopy: 05/2020, recall 5 yrs for hx of TA polyps - Hep A immunity: completed series - Hep B immunity: completed series - HCC screening [id number]: unable to obtain AFP due to lack of insurance coverage. Pancreas head lesion, evaluated via EUS in 02/22/19, too small (5 x 10mm) for aspiration but likely IPMN. U/S 05/13 w/o signs of HCC. MRI abd in 02/2020 limited due to motion artifact but pancreas appear unremarkable. - Encouraged to abstain from ETOH, illicit drugs, APAP no more than 2g daily - Low salt (2g) daily - Advised good control of blood sugars RETURN TO CLINIC: 3 months or sooner prn [facility] 06/23/2020 documented in this encounter Nursing Notes * Caron Escobar, UMA - 06/23/2020 1:12 PM EDT Chief Complaint Patient presents with Re-Check chirrosis Patient having BMs once a day. Formed stools. Does have RLQ pain per sign other present with pt. documented in this encounter Plan of Treatment Upcoming Encounters Date Type Specialty Care Team Description 0 Pharmacy Pharmacy [facility] [address] [place] [address] [phone] Cardiac Studies Cardiac Studies Dobutamine [address] [place], [place] [address] 0 Office Visit Hematology Oncology Tono Sanchez MD [address] [place] [address] [phone] 0 Office Visit Pharmacy [facility] [address] [place] [address] [phone] Office Visit Wound Care Prakash Honeycutt PA-C [address] [place], [place] [address] 0 Office Visit Endocrinology Alberta Duque PA-C [address] [place], [place] [id number] 0 Office Visit Gastroenterology Essence Chase PA-C [address] [place] [address] [phone] Hospital Encounter Surgery Janis Hatch, [address] [place] [address] [phone] Surgery Surgery Janis Hatch, DO [address] [place] [address] [phone] ESOPHAGOGASTRODUODENOSCOPY (EGD), FLEXIBLE, TRANSORAL, DIAGNOSTIC 0 Office Visit Family Medicine Alexandra Caceres, DO [address] [facility] [place] [id number] 0 Imaging Radiology 1 Office Visit Gastroenterology Lyssa Stout CRNP 132 [facility] [place] [address] [phone] Pending Results Name Type Priority Associated Diagnoses Date /Time XR ABDOMEN 1 VIEW Medical Imaging Routine Right upper quadrant abdominal pain 06/23/2020 1:51 PM EDT Health Maintenance Due Date Last Done Comments DIABETES-EYE EXAM 06/12/2019 06/12/2018, , 06/12/2018, Additional history exists DIABETES-URINE MICROALBUMIN EVERY 12 MONTHS 01/12/2020 01/11/2019, 08/24/2018, 07/19/2018, Additional history exists DXA-SCREENING EVERY 7 YRS-USE UbiSET# [id number] TO ORDER 2020 Pneumococcal Vaccine: 65+ [...] of this encounter Implants Implanted Type Area Irrigator Head Device Identifier Shelf Expiration Date Model / Serial / Lot Microtech Sure Clip Implanted:Qty: 2 on 06/03/2020 by Janis Hatch DO at OR [facility] Clip N/A: Colon 04/21/2022 [facility]-F-26-2 35-C-R / / [id number] documented as of this encounter Visit Diagnoses Diagnosis Right upper quadrant abdominal pain- Primary Abdominal pain, right upper quadrant Ambulatory dysfunction Cirrhosis of liver without ascites, unspecified hepatic cirrhosis type (HCC) NG (nonalcoholic steatohepatitis) Other chronic nonalcoholic liver disease Portal hypertension (HCC) Portal hypertension Esophageal varices (HCC) Esophageal varices without mention of bleeding documented in this encounter Advance Directives Documents on File Type Date Recorded Patient Erp Consultant Expl anation Advanced Directive service a [...] Relationship Healthcare Agent [facility] Communication Syed Bustos Spouse Emergency Contact "
--- OUTSIDE RECORDS SUMMARY | 2023-05-10 22:20 | External Medical Summary | Summary of Care ---
Author Name Unknown Organization [place] [address] Care Team Providers Care Head Boys Golf Coach Name Role Phone NickiAlexandra Daisha MORENO Primary Care Provider [phone] Reason for Visit * Reason Comments Dosage Adjustment Via Phone (anticoag Cl inic) Encounter Details Date Type Department Care Team Description 06/12/2020 Pharmacy Pharmacy, [address] [address] [facility] [address] [place] [address] [phone] Type 2 diabetes mellitus with hemoglobin A1c [...] 120 Vial 11 10/02/2019 Active nystatin (NYSTOP) 421837 UNIT/GM powder Apply topically to affected area [...] 3 12/04/2019 Active Dulaglutide (TRULICITY) 1.5 MG/0.5ML SOPNIndications:T ype 2 diabetes mellitus with hemoglobin A1c goal of less than 7.0% (HCC) Inject 1 syringeful once weekly 6 mL 1 12/04/2019 Active atorvaSTATin (LIPITOR) 40 MG TabletIndications [...] breakfast. 90 Cap 3 05/04/2020 Active PEG 4278-WEv-XsKns-Na Cl-NaSulf (GOLYTELY) 227.1 g PACK Drink 2 [...] SYSTM) MISC Freestyle Xochitl 2 14-day Sensor (277126) (2 sensors=28 day/1-month supply) 2 Each 1 05/26/2020 Active Continuous Blood Gluc Extract Wringer (FREESTYLE XOCHITL 2 READER SYSTM) KORTNEY Freestyle Xochitl 2 14-day Extract Wringer (311514) 1 Package 0 05/26/2020 Active famotidine (PEPCID) [...] a day. 28 Cap 0 06/09/2020 Active Insulin Aspart 100 UNIT/ML Subcutaneous Solution (NovoLOG) Inject 24 units under the skin before breakfast, 24 units before lunch, and 24 units before supper 60 mL 3 06/12/2020 Active Insulin Aspart 100 UNIT/ML Subcutaneous Solution [...] pain 01/24/2012 01/17/2017 Genetic Sleep Disorder Research Other*[id number] 05/13/2011 04/07/2016 Obstructive sleep apnea 01/18/2011 12/27/19 [...] this encounter Progress Notes * Indira Hudson, [facility] - 06/12/2020 12:44 PM EDT DM f/u call Diabetes Medications: INCREASE: Novolog, Inject 20 units before breakfast, 24 units before lunch, and 20 units before supper. Lantus pen, 24 units daily Metformin 1000mg, 1 tablet twice a day Trulicity 1.5mg SQ weekly GFR >60 as of 05/29/20 Patient Phone Numbers Called and spoke with patient and . Patient confirmed she picked up Libre2 from pharmacy and[facility] with [facility]. Patient's reports he has beengiving patient ~22 units of Novolog before each meal instead of instructed doses as above. He reports he is giving Lantus as directed. They report the following BG readings: Pre am Post am Pre Lunch Post Lunch Pre pm Post pm HS 270 342 204 424 356 259 210 317 Pre am Post am Pre Lunch Post Lunch Pre pm Post pm HS Average 271 #DIV/0! #DIV/0! #DIV/0! #DIV/0! #DIV/0! 342 Hi 356 0 0 0 0 0 424 Lo 204 0 0 0 0 0 259 Range 152 0 0 0 0 0 165 BG not at goal. Patient's will check BG on rotation and get a few readings before lunch andsupper so can better assess BG. Patient likely needs additional food coverage so will increase Novolog to 24 units before meals. Instructed patient's not to deviate from instructed dose without contacting clinic. He verbalized understanding. Diabetes Medications: INCREASE: Novolog, Inject 24 units before breakfast, 24 units before lunch, and 24 units before supper. Lantus pen, 24 units daily Metformin 1000mg, 1 tablet twice a day Trulicity 1.5mg SQ weekly GFR >60 as of 05/29/20 Will f/u in 1 week. Patient to contact clinic with any issues. Indira Hudson [facility], Pharm D, BCACP Clinical Pharmacist 06/12/20 12:47 PM documented in this encounter Plan of Treatment Upcoming Encounters Date Type Specialty Care Team Description 0 Office Visit Orthopedics Jayme Benz MD [address] [facility] [place] [id number] 0 Pharmacy Pharmacy [place] [facility] [address] [place] [address] [phone] Office Visit Gastroenterology Lyssa Stout CRNP 132 [place] [address] [phone] Cardiac Studies Cardiac Studies Dobutamine [address] [facility] [place] [address] 0 Office Visit Hematology Oncology Tono Sanchez MD 200 [facility] [place] [address] [phone] 0 Office Visit Pharmacy [facility] [address] [place] [address] [phone] 0 Office Visit Wound Care Prakash Honeycutt PA-C [address] [place], [place] [address] 0 Office Visit Endocrinology Alberta Duque PA-C [address] [place], [place] 97247[address] 0 Office Visit Gastroenterology Essence Chase PA-C [address] [facility] [address] [phone] 0 Office Visit Family Medicine Rajwinder Carter, DO [address] [place] [address] [phone] Hospital Encounter Surgery Janis Hatch, DO [facility] [place] [address] [phone] Surgery Surgery Janis Htach, DO [address] [facility] [place] [address] [phone] ESOPHAGOGASTRODUODENOSCOPY (EGD), FLEXIBLE, TRANSORAL, DIAGNOSTIC 0 Imaging [...] of this encounter Implants Implanted Type Area Roving Hand Device Identifier Shelf Expiration Date Model / Serial / Lot Microtech Sure Clip Implanted:Qty: 2 on 06/03/2020 by Janis Hatch DO at OR [facility] Clip N/A: Colon 04/21/2022 [facility]-F-26-2 35-C-R / / [id number] documented as of this encounter Visit Diagnoses Diagnosis Type 2 diabetes mellitus with hemoglobin A1c goal of less than 7.0% (HCC)- Primary Portal hypertension (HCC) Portal hypertension Esophageal varices (HCC) Esophageal varices without mention of bleeding documented in this encounter Advance Directives Documents on File Type Date Recorded 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
--- OUTSIDE RECORDS SUMMARY | 2023-05-10 22:20 | External Medical Summary | Summary of Care ---
Author Name Unknown Organization [place] [address] Care Team Providers Care Rim Buster Name Role Phone NikMaikel fernandez Primary Care Provider Reason for Visit * Reason Comments eRx-Medication Refill Encounter Details Date Type Department Care Team Description 06/17/2020 Refill [place] [address] [place], [place] [id number] Rajwinder Carter DO [address] [place] [address] [phone] Allergies Active Allergy Reactions Severity Noted Date Comments Adhesive Tape Itching 04/29/2020 Penicillins Rash 02/12/2008 documented as of this encounter (statuses as of 06/18/2020) Medications Medication Sig Dispensed Refills Start Date [...] 120 Vial 11 10/02/2019 Active nystatin (NYSTOP) 390165 UNIT/GM powder Apply topically to affected area [...] breakfast. 90 Cap 3 05/04/2020 Active PEG 3151-MSz-VfOsa-Na Cl-NaSulf (GOLYTELY) 227.1 g PACK Drink 2 [...] SYSTM) MISC Freestyle Xochitl 2 14-day Sensor (085767) (2 sensors=28 day/1-month supply) 2 Each 1 05/26/2020 Active Continuous Blood Gluc Caterers Helper (FREESTYLE XOCHITL 2 READER SYSTM) KORTNEY Freestyle Xochitl 2 14-day Caterers Helper (317031) 1 Package 0 05/26/2020 Active famotidine (PEPCID) [...] than 7.0% ([facility]) Inject 1.5mg (one pen) under the skin once weekly 6 mL 3 06/12/2020 Active Insulin Aspart 100 UNIT/ML Subcutaneous Solution (NovoLOG) Inject 24 units under the skin before breakfast, 24 units before lunch, and 24 units before supper 60 mL 3 06/12/2020 Active SM Aspirin Adult Low Strength 81 MG Oral Tablet Delayed Release (aspirin enteric coated) TAKE 1 TABLET BY MOUTH ONCE DAILY 90 Tab 1 06/18/2020 Active SM ASPIRIN ADULT LOW STRENGTH 81 MG TBEC TAKE 1 TABLET BY MOUTH ONCE DAILY 90 Tab 3 12/04/2019 0 Discontinued documented as of this encounter (statuses as of 06/18/2020) Active Problems Problem Noted Date Diabetic ulcer [...] as of this encounter (statuses as of 06/18/2020) Resolved Problems Problem Noted Date Resolved Date [...] pain 01/24/2012 01/17/2017 Genetic Sleep Disorder Research Other*[id number] 05/13/2011 04/07/2016 Obstructive sleep apnea 01/18/2011 12/27/19 [...] as of this encounter (statuses as of 06/18/2020) Immunizations Name Administration Dates Next Due HEP [...] Telephone Encounter - Serg Martinez RPh - 06/18/2020 1:09 PM EDT Signed Prescriptions: Disp Refills SM Aspirin Adult Low Strength 81 MG Oral T*90 Tab 1 Sig: TAKE 1 TABLET BY MOUTH ONCE DAILYAuthorizing Provider: MAIKEL CACERES User: SERG MARTINEZ-------- * Telephone Encounter - Serg Martinez RPh - 06/18/2020 1:08 PM EDT Pending Prescriptions: Disp Refills SM Aspirin Adult Low Strength 81 MG Oral *90 Tab 0 Sig: TAKE 1 TABLET BY MOUTH ONCE DAILY Last Office/Telemedicine Visit: 06/01/2020 Next Office Visit: 08/19/2020 Scheduled Provider(s): Maikel Caceres, DO If no future appointments scheduled, and last appointment is greater than a year ago, please schedule patient for a follow-up appointment Last date the medication was ordered: Pharmacy: [id number] [place] [address] [facility] Is this request for a controlled [...] Specialty Care Team Description 0 Pharmacy Pharmacy [address] [address] [phone] Office Visit Gastroenterology Lys[facility] Stout CR[facility] [address] [phone] Cardiac Studies Cardiac Studies Dobutamine [address] [facility] [address] 0 Office Visit Hematology Oncology Tono Sanchez MD 200 [facility] [address] [phone] 0 Office Visit Pharmacy [address] [address] [phone] 0 Office Visit Wound Care Prakash Honeycutt, JEYSON [address] [place], [place] [address] 0 Office Visit Endocrinology Alberta Duque PA-C [address] [place], [place] [address] 0 Office Visit Gastroenterology Essence Chase PA-C [address] [place] [address] [phone] Hospital Encounter Surgery Janis Hatch, DO [address] [place] [address] [phone] Surgery Surgery Janis Hatch, DO [address] [facility] [place] [address] [phone] ESOPHAGOGASTRODUODENOSCOPY (EGD), FLEXIBLE, TRANSORAL, DIAGNOSTIC 0 Office Visit Family Medicine Maikel Caceres, DO [address] [place] [address] [phone] 0 Imaging Radiology Health Maintenance Due Date [...] this encounter Implants Implanted Type Area Asphalt Plant Operator Device Identifier Shelf Expiration Date Model / Serial / Lot Microtech Sure Clip Implanted:Qty: 2 on 06/03/2020 by Janis Hatch DO at OR [facility] Clip N/A: Colon 04/21/2022 [facility]-F-26-2 35-C-R / / [id number] documented as of this encounter Advance Directives Documents on File Type Date Recorded 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
--- OUTSIDE RECORDS SUMMARY | 2023-05-10 22:20 | External Medical Summary | Summary of Care ---
Author Name Unknown Organization [place] [address] Care Team Providers Care Lepidopterist Name Role Phone Alexandra Caceres DO Primary Care Provider [phone] Reason for Visit * Reason Onset Date Comments Emergency Medicine Alert 06/10/2020 Encounter Details Date Type Department Care Team Description 06/10/2020 Telephone [facility] [address], [place] [id number] Alexandra Caceres DO [address] [place], [place] [address]23 Emergency Medicine Alert Allergies Active Allergy Reactions Severity Noted Date [...] 120 Vial 11 10/02/2019 Active nystatin (NYSTOP) 674847 UNIT/GM powder Apply topically to affected area [...] breakfast. 90 Cap 3 05/04/2020 Active PEG 3636-SHy-VzDfb-Na Cl-NaSulf (GOLYTELY) 227.1 g PACK Drink 2 [...] SYSTM) MIS Freestyle Xochitl 2 14-day Sensor (840960) (2 sensors=28 day/1-month supply) 2 Each 1 05/26/2020 Active Continuous Blood Gluc Senior Writer (FREESTYLE XOCHITL 2 READER SYSTM) KORTNEY Freestyle Xochitl 2 14-day Senior Writer (759213) 1 Package 0 05/26/2020 Active famotidine (PEPCID) [...] pain 01/24/2012 01/17/2017 Genetic Sleep Disorder Research Other*[id number] 05/13/2011 04/07/2016 Obstructive sleep apnea 01/18/2011 12/27/19 [...] Telephone Encounter - Talita Caballero OSA - 06/12/2020 3:08 PM EDT Appt is scheduled per pt pref * Telephone Encounter - Alexandra Caceres DO - 06/10/2020 11:34 AM EDT Noted * Telephone Encounter - Preethi Colón LPN - 06/10/2020 11:18 AM EDT Please assist pt with scheduling an ER follow up Dr. Caceres - cheikh documented in this encounter Plan of Treatment Upcoming Encounters Date Type Specialty Care Team Description 0 Pharmacy Pharmacy [place], [address] [address] [phone] Type 2 diabetes mellitus with hemoglobin A1c goal of less than 7.0% (HCC)* 0 Office Visit Orthopedics Jayme Benz MD [address] [place], [place] [address] 0 Pharmacy [facility] [address] [place] [address] [phone] 0 Office Visit Gastroenterology Lyssa Stout CRNP [address] [place] [facility] [place] [address] [phone] Cardiac Studies Cardiac Studies Dobutamine [address] [place], [place] [address] 0 Office Visit Hematology Oncology Tono Sanchez MD [address] [place] [address] [phone] 0 Office Visit Pharmacy [facility] [address] [place] [address] [phone] 0 Office Visit Wound Care Prakash Honeycutt PA-C [address] [place], [place] [address] 0 Office Visit Endocrinology Alberta Duque PA-C [address] [place], [place] [address] 0 Office Visit Gastroenterology Essence Chase PA-C [address] [place] [address] [phone] Hospital Encounter Surgery Janis Hatch DO [address] [place] [address] [phone] Surgery Surgery Janis Hatch, DO [address] [place] [address] [phone] ESOPHAGOGASTRODUODENOSCOPY (EGD), FLEXIBLE, TRANSORAL, DIAGNOSTIC 0 Office Visit Family Medicine Alexandra Caceres, DO [address] [facility] [place] [address] [phone] 0 Imaging Radiology Health Maintenance Due Date [...] this encounter Implants Implanted Type Area Construction Executive Device Identifier Shelf Expiration Date Model / Serial / Lot Microtech Sure Clip Implanted:Qty: 2 on 06/03/2020 by Janis Hatch DO at OR [facility] Clip N/A: Colon 04/21/[address] 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
--- OUTSIDE RECORDS SUMMARY | 2023-05-10 22:21 | External Medical Summary | Summary of Care ---
Author Name Unknown Organization [place] [address] Care Team Providers Care Certified Court Interpreter Name Role Phone QamarAlexandra mcdonough Primary Care Provider Reason for Visit * Reason Onset Date Comments Medication Pre-auth 05/28/2020 Encounter Details Date Type Department Care Team Description 05/28/2020 Telephone [facility] [address] [place] [address] Rajwinder Carter DO [address] [place], [place] [id number] Medication Pre-auth Allergies Active Allergy Reactions Severity Noted Date Comments Adhesive Tape Itching 04/29/2020 Penicillins Rash 02/12/2008 documented as of this encounter (statuses as of 06/10/2020) Medications Medication Sig Dispensed Refills Start Date [...] 120 Vial 11 10/02/2019 Active nystatin (NYSTOP) 609629 UNIT/GM powder Apply topically to affected area [...] breakfast. 90 Cap 3 05/04/2020 Active PEG 7943-PVc-KjEjw-NaCl- NaSulf (GOLYTELY) 227.1 g PACK Drink 2 [...] SYSTM) MISC Freestyle Xochitl 2 14-day Sensor (848707) (2 sensors=28 day/1-month supply) 2 Each 1 05/26/2020 Active Continuous Blood Gluc Wildlife Biology Technician (FREESTYLE XOCHITL 2 READER SYSTM) KORTNEY Freestyle Xochitl 2 14-day Wildlife Biology Technician (903803) 1 Package 0 05/26/2020 Active documented as of this encounter (statuses as of 06/10/2020) Active Problems Problem Noted Date Diabetic ulcer [...] as of this encounter (statuses as of 06/10/2020) Resolved Problems Problem Noted Date Resolved Date [...] pain 01/24/2012 01/17/2017 Genetic Sleep Disorder Research Other*[id number] 05/13/2011 04/07/2016 Obstructive sleep apnea 01/18/2011 12/27/19 [...] as of this encounter (statuses as of 06/10/2020) Immunizations Name Administration Dates Next Due HEP [...] Telephone Encounter - Indira Hudson RPh - 06/10/2020 10:37 AM EDT Already addressed. Called and spoke with [facility] pharmacy who confirmed patient picked Xochitl sensor and readers up. Will follow-up as previously scheduled. Indira Hudson RP, Pharm D, BCACP Clinical Pharmacist 06/10/20 10:37 AM * Telephone Encounter - Ava Felix CPhT - 05/28/2020 4:04 PM EDT corrie calling to inform doctor that the pt's insurance will not pay for this medication without a completed prior authorization. . Please complete with the following information: Corrie has already tried to have the hospital complete a PA. They told him they cannot do it and to contact PCP Patient name: Shaina Bustos ID number: [id number] BIN number: [id number] PCN number: [id number] Group number: [id number] Subscriber name: Shaina Bustos Primary or Secondary Insurance:Primary Medication: Continuous Blood Gluc Sensor (FREESTYLE XOCHITL 2 SENSOR SYSTM) MISC & Continuous Blood Gluc Wildlife Biology Technician (FREESTYLE XOCHITL 2 READER SYSTM) KORTNEY Reason for Request: med not covered Pharmacy: [facility] [phone] Rx plan and phone number: [email or web address] [phone] What alternative medications does the pharmacy have in stock?: mikal List of medications pt has tried and failed: mikal Thank you, Ava Felix CPhT Technology Infusion Specialist [facility] 05/28/2020, 4:05 PM documented in this encounter Plan of Treatment Upcoming Encounters Date Type Specialty Care Team Description 0 Office Visit Gynecology Obstetrics Marie Myrick MD [address] [place], [place] [address] 0 Cardiac Studies Cardiac Studies Dobutamine [address] [place], [place] [address] 0 Pharmacy Pharmacy [facility] [address] [place] [address] [phone] 0 Office Visit Gastroenterology Lyssa Stout CRNP 132 [facility] [place] [address] [phone] 0 Office Visit Hematology Oncology Tono Sanchez MD [address] [place] [address] [phone] 0 Office Visit Pharmacy [facility] [address] [place] [address] [phone] 0 Office Visit Wound Care Prakash Honeycutt PA-C [address] [place], [place] [address] 0 Office Visit Endocrinology Alberta Duque PA-C [address] [place], [place] [address] 0 Office Visit Gastroenterology Essence Chase PA-C [address] [place] [address] [phone] 0 Office Visit Family Medicine Rajwinder Carter DO [address] [place] [address] [phone] 0 Hospital Encounter Surgery Janis Hatch DO [address] [place] [address] [phone] Surgery Surgery Janis Hatch, DO [address] [place] [address] [phone] ESOPHAGOGASTRODUODENOSCOPY (EGD), FLEXIBLE, TRANSORAL, DIAGNOSTIC 0 Imaging [...] of this encounter Implants Implanted Type Area Teaching Young Device Identifier Shelf Expiration Date Model / Serial / Lot Microtech Sure Clip Implanted:Qty: 2 on 06/03/2020 by Janis Hatch DO at OR [facility] Clip N/A: Colon 04/21/2022 [facility]-F-26-2 35-C-R / / [id number] documented as of this encounter Advance Directives Documents on File Type Date Recorded 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
--- OUTSIDE RECORDS SUMMARY | 2023-05-10 22:21 | External Medical Summary | Summary of Care ---
Author Name Unknown Organization [place] [address] Care Team Providers Care Sharebroker Name Role Phone QamarAlexandra mcdonough Primary Care Provider [phone] Reason for Visit * Reason Onset Date Comments Medication Pre-auth 05/28/2020 Encounter Details Date Type Department Care Team Description 05/28/2020 Telephone [facility] [address] [place] [address] Rajwinder Carter DO [address] [place], [place] [id number] Medication Pre-auth Allergies Active Allergy Reactions Severity [...] 120 Vial 11 10/02/2019 Active nystatin (NYSTOP) 236686 UNIT/GM powder Apply topically to affected area [...] breakfast. 90 Cap 3 05/04/2020 Active PEG 3696-LTd-LuEtj-NaCl- NaSulf (GOLYTELY) 227.1 g PACK Drink 2 [...] SYSTM) MISC Freestyle Xochitl 2 14-day Sensor (026505) (2 sensors=28 day/1-month supply) 2 Each 1 05/26/2020 Active Continuous Blood Gluc Traffic Signal Technician (FREESTYLE XOCHITL 2 READER SYSTM) KORTNEY Freestyle Xochitl 2 14-day Traffic Signal Technician (971572) 1 Package 0 05/26/2020 Active documented as [...] pain 01/24/2012 01/17/2017 Genetic Sleep Disorder Research Other*[id number] 05/13/2011 04/07/2016 Obstructive sleep apnea 01/18/2011 12/27/19 [...] EDT Already addressed. Called and spoke with [facility] pharmacy who confirmed patient picked Xochitl [...] PCP Patient name: Shaina Bustos ID number: [id number] BIN number: [id number] PCN number: [id number] Group number: [id number] Subscriber name: Shaina Bustos Primary or Secondary Insurance:Primary Medication: Continuous Blood Gluc Sensor (FREESTYLE XOCHITL 2 SENSOR SYSTM) MISC & Continuous Blood Gluc Traffic Signal Technician (FREESTYLE XOCHITL 2 READER SYSTM) KORTNEY Reason for Request: med not covered Pharmacy: [facility] [phone] Rx plan and phone number: [email or web address] [phone] What alternative medications does the pharmacy have in stock?: mikal List of medications pt has tried and failed: mikal Thank you, Ava Felix CPhT Solar [employer]olta[employer] Crew Lead [facility] tele[facility] 05/28/2020, 4:05 PM documented in this encounter Plan of Treatment Upcoming Encounters Date Type Specialty Care Team Description 0 Office Visit Gynecology Obstetrics Marie Myrick MD [address] [place], [place] [address] 0 Cardiac Studies Cardiac Studies Dobutamine [address] [place], [place] [address] 0 Pharmacy Pharmacy [facility] [address] [place] [address] [phone] 0 Office Visit Gastroenterology Lyssa Stout CRNP 132 [facility] [place] [address] [phone] 0 Office Visit Hematology Oncology Tono Sanchez MD [address] [place] [address] [phone] 0 Office Visit Pharmacy [facility] [address] [place] [address] [phone] Office Visit Wound Care Prakash Honeycutt PA-C [address] [place], [place] [address] 0 Office Visit Endocrinology Alberta Duque PA-C [address] [place], [place] [address] 0 Office Visit Gastroenterology Essence Chase PA-C [address] [place] [address] [phone] 0 Office Visit Family Medicine Rajwinder Carter DO [address] [place] [address] [phone] 0 Hospital Encounter Surgery Janis Hatch DO [address] [place] [address] [phone] Surgery Surgery Janis Hatch, DO [address] [place] [address] [phone] ESOPHAGOGASTRODUODENOSCOPY (EGD), FLEXIBLE, TRANSORAL, DIAGNOSTIC 0 Imaging [...] of this encounter Implants Implanted Type Area Slide Forming Machine Operator Device Identifier Shelf Expiration Date Model / Serial / Lot Microtech Sure Clip Implanted:Qty: 2 on 06/03/2020 by Janis Hatch DO at OR [facility] Clip N/A: Colon 04/21/2022 [facility]-F-26-2 35-C-R / / [id number] documented as of this encounter Advance Directives Documents on File Type Date Recorded Patient Outreach Liaison Expl anation Advanced Directive service a [...]
--- OUTSIDE RECORDS SUMMARY | 2023-05-10 22:21 | External Medical Summary | Summary of Care ---
Author Name Unknown Organization [place] [address] Care Team Providers Care Car Dumper Name Role Phone Nicki Alexandra Daisha MORENO Primary Care Provider [phone] Reason for Referral * Evaluate & Treat - Unlimited Visits (Within 10 days (routine)) Status Reason Specialty Diagnoses / Procedures Referred By Contact Referred To Contact Pending Review Specialty Services Required Orthopaedic Surgery / Orthopedics Diagnoses Closed nondisplaced fracture of distal phalanx of right great toe, initial encounter Prakash Honeycutt PA-C [address] [place] [address] Reason for Visit * Reason Onset Date Comments Abnormal Test Results 06/10/2020 Encounter Details Date Type Department Care Team Description 06/10/2020 Telephone [facility] [address] [place] [address] Prakash Honeycutt PA-C [address] [place] [address] [phone] Abnormal Test Results Allergies Active Allergy Reactions [...] 120 Vial 11 10/02/2019 Active nystatin (NYSTOP) 825188 UNIT/GM powder Apply topically to affected area [...] goal of less than 7.0% ([facility]) Inject 1 syringeful once weekly 6 mL [...] breakfast. 90 Cap 3 05/04/2020 Active PEG 9413-WBs-GbPad-NaCl- NaSulf (GOLYTELY) 227.1 g PACK Drink 2 [...] SYSTM) MISC Freestyle Xochitl 2 14-day Sensor (726472) (2 sensors=28 day/1-month supply) 2 Each 1 05/26/2020 Active Continuous Blood Gluc Heat Treat Technician (FREESTYLE XOCHITL 2 READER SYSTM) KORTNEY Freestyle Xochitl 2 14-day Heat Treat Technician (154567) 1 Package 0 05/26/2020 Active famotidine (PEPCID) [...] a day. 28 Cap 0 06/09/2020 Active documented as of this encounter (statuses [...] pain 01/24/2012 01/17/2017 Genetic Sleep Disorder Research Other*[id number] 05/13/2011 04/07/2016 Obstructive sleep apnea 01/18/2011 12/27/19 [...] encounter Miscellaneous Notes * Telephone Encounter - Prakash Honeycutt PA-C - 06/10/2020 4:22 PM EDT XR shows Nondisplaced fracture of base of R 1st distal phalanx. Correlates with dorsal toe bruisingand tenderness. Referral to orthopaedics. Called patient and advised of XR findings. Schedulers: Please schedule patient to be evaluated in Orth clinic. Prakash Honeycutt PA-C 06/10/2020 4:28 PM [facility] [address] [facility] [address] documented in this encounter Plan of Treatment Upcoming Encounters Date Type Specialty Care Team Description 0 Cardiac Studies Cardiac Studies Dobutamine [address] [place] [address] [facility] [address] [place] [address] [phone] Office Visit Gastroenterology Lyssa Stout CR[facility] [address] [phone] Office Visit Hematology Oncology Tono Sanchez MD [address] [place] [address] [phone] [facility] [address] [place] [address] [phone] Office Visit Wound Care Prakash Honeycutt PA-C [address] [place], [place] [address] 0 Office Visit Endocrinology Alberta Duque PA-C [address] [place], [place] [id number] 0 Office Visit Gastroenterology Essence Chase PA-C [address] [facility] [place] [address] [phone] Office Visit Family Medicine Rajwinder Carter, DO [address] [place] [facility] [place] [address] [phone] Hospital Encounter Surgery Janis Hatch, DO [address] [place] [address] [phone] Surgery Surgery Janis Hatch, DO [address] [place] [address] [phone] ESOPHAGOGASTRODUODENOSCOPY (EGD), FLEXIBLE, TRANSORAL, DIAGNOSTIC 0 Imaging Radiology Scheduled Referrals Name Type [...] of this encounter Implants Implanted Type Area Dat Instructor Device Identifier Shelf Expiration Date Model / Serial / Lot Microtech Sure Clip Implanted:Qty: 2 on 06/03/2020 by Janis Hatch DO at OR [facility] Clip N/A: Colon 04/21/2022 [facility]-F-26-2 35-C-R / / [id number] documented as of this encounter Visit Diagnoses Diagnosis Closed nondisplaced fracture of distal phalanx of right great toe, initial encounter- Primary Portal hypertension (HCC) Portal hypertension Esophageal varices (HCC) Esophageal varices without mention of bleeding documented in this encounter Advance Directives Documents on File Type Date Recorded Patient Tapping Machine Operator Automatic Expl anation Advanced Directive service a [...] [facility] p Communication Syed Fariasel Spouse Emergency Contact
--- OUTSIDE RECORDS SUMMARY | 2023-05-10 22:21 | External Medical Summary | Summary of Care ---
Author Name Unknown Organization [place] [address] Care Team Providers Care Vehicle Operator Name Role Phone CarlosjosefaAlexandra fernandez Primary Care Provider [phone] Reason for Visit * Reason Onset Date Comments Test Results 06/10/2020 Unexpected or In determinate Result Encounter Details Date Type Department Care Team Description 06/10/2020 Telephone Outpatient Laboratory, [place] [address] [place], [place] [id number] Prakash Honeycutt PA-C [address] [place], [place] [id number] Test Results (Unexpected or Indeterminate ... Allergies Active Allergy Reactions Severity Noted [...] 120 Vial 11 10/02/2019 Active nystatin (NYSTOP) 234486 UNIT/GM powder Apply topically to affected area [...] breakfast. 90 Cap 3 05/04/2020 Active PEG 9770-GAs-RmFmr-NaCl- NaSulf (GOLYTELY) 227.1 g PACK Drink 2 [...] SYSTM) MISC Freestyle Xochitl 2 14-day Sensor (611286) (2 sensors=28 day/1-month supply) 2 Each 1 05/26/2020 Active Continuous Blood Gluc Engineer Rf Deployment (FREESTYLE XOCHITL 2 READER SYSTM) KORTNEY Freestyle Xochitl 2 14-day Engineer Rf Deployment (622005) 1 Package 0 05/26/2020 Active famotidine (PEPCID) [...] pain 01/24/2012 01/17/2017 Genetic Sleep Disorder Research Other*[id number] 05/13/2011 04/07/2016 Obstructive sleep apnea 01/18/2011 12/27/19 [...] encounter Miscellaneous Notes * Telephone Encounter - Angela Lomas OSA - 06/10/2020 4:12 PM EDT Hello- The radiologist discovered an unexpected or indeterminate finding on Shaina Bustos ([id number]) and asks that you review the following report. Study Type: XR TOES 2 OR MORE VIEWS Date of Study: 06/09/20 IMPRESSION Curvilinear lucency at the plantar aspect of the base of the 1st distal phalanx may reflect a nondisplaced fracture. Correlate for focal tenderness to this region. Please respond to this encounter to acknowledge receipt of this message and take responsibility to ensure this report is reviewed. Thank you, THAD James Client Service Rep [facility] [place] documented in this encounter Plan of Treatment Upcoming Encounters Date Type Specialty Care Team Description 0 Cardiac Studies Cardiac Studies Dobutamine [address] [place] [address] 0 Pharmacy Pharmacy [facility] [address] [place] [address] [phone] Office Visit Gastroenterology Lyssa Stout CRNP [address] [facility] [place] [address] [phone] Office Visit Hematology Oncology Tono Sanchez MD [address] [facility] [place] [address] [phone] 0 Office Visit Pharmacy [facility] [address] [place] [address] [phone] Office Visit Wound Care Prakash Honeycutt PA-C [address] [place], [place] [address] 0 Office Visit Endocrinology Alberta Duque PA-C [address], [place] [address] 0 Office Visit Gastroenterology Essence Chase PA-C 132 [facility] [place] [address] [phone] Office Visit Family Medicine Rajwinder Carter, DO [address] [place] [address] [phone] Hospital Encounter Surgery [facility]is Hatch, [facility] [place] [address] [phone] Surgery Surgery [facility]is Hatch, [address] [facility] [place] [address] [phone] ESOPHAGOGASTRODUODENOSCOPY (EGD), FLEXIBLE, TRANSORAL, DIAGNOSTIC 0 Imaging [...] of this encounter Implants Implanted Type Area B2B Sales Professional Device Identifier Shelf Expiration Date Model / Serial / Lot Microtech Sure Clip Implanted:Qty: 2 on 06/03/2020 by Janis Hatch DO at OR [facility] Clip N/A: Colon 04/21/2022 [facility]-F-26-2 35-C-R / / [id number] documented as of this encounter Advance Directives Documents on File Type Date Recorded Patient Employment Interviewer Expl anation Advanced Directive service a kerri [...] Agents on File Name Relationship Healthcare Agent [facility] p Communication Syed Bustos Spouse Emergency Contact
--- OUTSIDE RECORDS SUMMARY | 2023-05-10 22:21 | External Medical Summary | Summary of Care ---
Author Name Unknown Organization [place] [address] Care Team Providers Care Director Hris Name Role Phone Alexandra Caceres DO Primary Care Provider [phone] Reason for Visit * Reason Onset Date Comments Emergency Medicine Alert 06/10/2020 Encounter Details Date Type Department Care Team Description 06/10/2020 Telephone [facility] [address] [place], [place] [address] Alexandra Caceres DO [address] [place] [address] [phone] Emergency Medicine Alert Allergies Active Allergy Reactions [...] 120 Vial 11 10/02/2019 Active nystatin (NYSTOP) 605155 UNIT/GM powder Apply topically to affected area [...] breakfast. 90 Cap 3 05/04/2020 Active PEG 6731-LLa-DoVlg-NaCl- NaSulf (GOLYTELY) 227.1 g PACK Drink 2 [...] SYSTM) MISC Freestyle Xochitl 2 14-day Sensor (694672) (2 sensors=28 day/1-month supply) 2 Each 1 05/26/2020 Active Continuous Blood Gluc Production Sanitizer (FREESTYLE XOCHITL 2 READER SYSTM) KORTNEY Freestyle Xochitl 2 14-day Production Sanitizer (272010) 1 Package 0 05/26/2020 Active famotidine (PEPCID) [...] pain 01/24/2012 01/17/2017 Genetic Sleep Disorder Research Other*[id number] 05/13/2011 04/07/2016 Obstructive sleep apnea 01/18/2011 12/27/19 [...] Team Description 0 Office Visit Gynecology Obstetrics [place]Marie MD [address] [place] [address] 0 Cardiac Studies Cardiac Studies Dobutamine [address] [facility] [place] [address] 0 Pharmacy Pharmacy [address] [address] [phone] Office Visit Gastroenterology [facility]out CRNP [address] [facility] [address] [phone] 0 Office Visit Hematology Oncology Tono Sanchez MD [address] [facility] [place] [address] [phone] 0 [facility] [address] [place], [place] [address] 0 Office Visit Wound Care Prakash Honeycutt PA-C [address] [place], [place] [address] 0 Office Visit Endocrinology Alberta Duque PA-C [address] [place], [place] [address] 0 Office Visit Gastroenterology Essence Chase PA-C [facility] [place] [address] [phone] Office Visit Family Medicine Rajwinder Carter, DO [address] [place] [address] [phone] Hospital Encounter Surgery Janis Hatch, [facility] [place] [address] [phone] Surgery Surgery Janis aHtch, [address] [facility] [place] [address] [phone] ESOPHAGOGASTRODUODENOSCOPY (EGD), FLEXIBLE, TRANSORAL, DIAGNOSTIC 0 Imaging [...] of this encounter Implants Implanted Type Area Business Applications Analyst Device Identifier Shelf Expiration Date Model / Serial / Lot Microtech Sure Clip Implanted:Qty: 2 on 06/03/2020 by Janis Hatch DO at OR [facility] Clip N/A: Colon 04/21/2022 [facility]-F-26-2 35-C-R / / [id number] documented as of this encounter Advance Directives Documents on File Type Date Recorded Patient African History Professor Expl anation Advanced Directive service a [...] on File Name Relationship [facility] Communication Syed Bustos Spouse Emergency Contact
--- OUTSIDE RECORDS SUMMARY | 2023-05-10 22:21 | External Medical Summary | Summary of Care ---
Author Name Unknown Organization [place] [address] Care Team Providers Care Sports Instructor Name Role Phone CarlosjosefaAlexandra fernandez Primary Care Provider [phone] Reason for Visit * Reason Onset Date Comments Test Results 06/10/2020 Unexpected or In determinate Result Encounter Details Date Type Department Care Team Description 06/10/2020 Telephone Outpatient Laboratory, [place] [address] [place], [place] [id number] Prakash Honeycutt PA-C [address] [place], [place] [id number] Test Results (Unexpected or Indeterminate ... Allergies [...] 120 Vial 11 10/02/2019 Active nystatin (NYSTOP) 267080 UNIT/GM powder Apply topically to affected area [...] breakfast. 90 Cap 3 05/04/2020 Active PEG 2869-WSe-YwZvw-NaCl- NaSulf (GOLYTELY) 227.1 g PACK Drink 2 [...] SYSTM) MISC Freestyle Xochitl 2 14-day Sensor (752009) (2 sensors=28 day/1-month supply) 2 Each 1 05/26/2020 Active Continuous Blood Gluc Cushion Stuffer (FREESTYLE XOCHITL 2 READER SYSTM) KORTNEY Freestyle Xochitl 2 14-day Cushion Stuffer (800054) 1 Package 0 05/26/2020 Active famotidine (PEPCID) [...] pain 01/24/2012 01/17/2017 Genetic Sleep Disorder Research Other*[id number] 05/13/2011 04/07/2016 Obstructive sleep apnea 01/18/2011 12/27/19 [...] Encounter - Prakash Honeycutt PA-C - 06/10/2020 4:32 PM EDT Called and discussed result with patient. Orthopaedics referral placed. Advised patient to keep protected. Currently non-ambulatory (non-wt bearing), uses motorized wheelchair and has dressing and mckenna wrap covering area. Prakash Honeycutt PA-C 06/10/2020 4:32 PM * Telephone Encounter - Angela Lomas OSA - 06/10/2020 4:12 PM EDT Hello- The radiologist discovered an unexpected or indeterminate finding on Shaina Bustos ([id number]) and asks that you review the following [...] Thank you, THAD James Client Service Rep [facility] documented in this encounter Plan of Treatment Upcoming Encounters Date Type Specialty Care Team Description 0 Cardiac Studies Cardiac Studies Dobutamine [address] [place] [address] 0 Pharmacy Pharmacy [facility] [address] [place] [address] [phone] 0 Office Visit Gastroenterology yLssa Stout CRNP [address] [facility] [place] [address] [phone] 0 Office Visit Hematology Oncology Tono Sanchez MD [address] [place] [address] [phone] 0 Office Visit Pharmacy [facility] [address] [place] [address] [phone] Office Visit Wound Care Prakash Honeycutt PA-C [address] [place], [place] [address] 0 Office Visit Endocrinology Alberta Duque PA-C [address] [place], [place] [address] 0 Office Visit Gastroenterology Essenec Chase PA-C [address] [facility] [address] [phone] 0 Office Visit Family Medicine Rajwinder Carter, [address] [place] [address] [phone] Hospital Encounter Surgery [facility]is Hatch, [facility] [place] [address] [phone] Surgery Surgery Janis Hatch, DO [address] [place] [address] [phone] ESOPHAGOGASTRODUODENOSCOPY (EGD), FLEXIBLE, TRANSORAL, DIAGNOSTIC 0 Imaging [...] of this encounter Implants Implanted Type Area Outside Cutter Device Identifier Shelf Expiration Date Model / Serial / Lot Microtech Sure Clip Implanted:Qty: 2 on 06/03/2020 by Janis Hatch DO at OR [facility] Clip N/A: Colon 04/21/2022 [facility]-F-26-2 35-C-R / / [id number] documented as of this encounter Advance Directives Documents on File Type Date Recorded Patient Director Of Corporate Communications Expl anation Advanced Directive service a kerri [...]
--- OUTSIDE RECORDS SUMMARY | 2023-05-10 22:21 | External Medical Summary | Summary of Care ---
Author Name Unknown Organization [place] [address] Care Team Providers Care Head Of Sales Name Role Phone Alexandra Caceres Primary Care Provider [phone] Reason for Visit * Reason Onset Date Comments Hospital Follow-Up 05/27/2020 Encounter Details Date Type Department Care Team Description 05/27/2020 Telephone Ancillary Department, [address] [address] Rosio Hunter RN Hospital Follow-Up [...] 120 Vial 11 10/02/2019 Active nystatin (NYSTOP) 915091 UNIT/GM powder Apply topically to affected area [...] breakfast. 90 Cap 3 05/04/2020 Active PEG 5410-NGn-MfJas-NaCl- NaSulf (GOLYTELY) 227.1 g PACK Drink 2 [...] Gluc Sensor (FREESTYLE XOCHITL 2 SENSOR SYSTM) [facility] Freestyle Xochitl 2 14-day Sensor (485869) (2 sensors=28 day/1-month supply) 2 Each 1 05/26/2020 Active Continuous Blood Gluc Multimedia Instructional Designer (AttractaSTYLE XOCHITL 2 READER SYSTM) KORTNEY Freestyle Xochitl 2 14-day Multimedia Instructional Designer (338715) 1 Package 0 05/26/2020 Active documented as of this encounter (statuses as of 06/10/2020) Active Problems Problem Noted Date Diabetic ulcer of right great toe 2019 Cellulitis of right toe 04/18/2020 Cellulitis of right lower extremity 08/0 01/2020 Iron deficiency anemia due to chronic [...] pain 01/24/2012 01/17/2017 Genetic Sleep Disorder Research Other*[id number] 05/13/2011 04/07/2016 Obstructive sleep apnea 01/18/2011 12/27/19 [...] No Preserve, 6 Mons & Above, IM 06/05/2019,05/16/2018,07/10/2017 06/05/2020 Seasonal Influenza, Quadriva lent, No Preserve, [...] Telephone Encounter - Rosio Hunter RN - 05/27/2020 3:27 PM EDT Transitions of Care Note Reason for Referral:Recent Admission Phone visit for follow up: BALDOMERO [place] [facility] [place]: 05/25/2020 Discharged to: Home, Date: 05/26/2020 Diagnosis driving hospitalization: diabetic ulcer of right great toe Source/Contact: Patient SUBJECTIVE Consent: Verbal consent for review of hospital discharge: Yes REVIEW OF SYSTEMS Patient/Other Reports: Current patient/caregiver problems or concerns: na CV: Denies problems Pulmonary: Denies problems Chills/Sweats/Fever:Denies chills/sweats Denies fever Appetite:Denies problems such as nausea, vomiting, burning, decreased appetite Bowel: denies problems Bladder: denies problems Wound (If applicable): Site-R. Great toe. Caregiver just did dressing prior to call Pain:Denies Location- R. Great toe at times Sleep:Denies problems FUNCTIONAL STATUS: ADL'S: Needs Assistance With:All ADL's as pt is completely dependent IADL'S: Needs Assistance With:Grocery Shopping, Cooking food, Routine Housework, Using telephone, Taking care of pets, Taking medications, Attending to safety and Managing money Cognitive and Mental Health: denies problems, alert and oriented x 3 and able to communicate, understand instructions, process information. MEDICATION RECONCILIATION Medications: New medication(s) filled since hospitalization- Novolog, Freestyle Xochitl, Clindamycin Changed medication(s) since hospitalization Lantus Patient and states they have not picked up any of the new medications at this time. Advisedthem that they need to get the insulin and start using it IHSAN to bring the sugar down. Voiced concern to them regarding high blood sugars. Spoke to Dr. Manriquez regarding patient sugars being between 380-411. She wants patient to start Novolog ihsan. ASSESSMENT Medication Risk Assessment: PolyPharmacy Did patient fail outpatient treatment? No Discharge instructions available for review? Yes PLAN Symptom Monitoring Interventions:Member/caregiver education - signs and symptoms to contact PrimaryCare (DO NOT DELETE-Three ervin symptoms patient is to report to PCP) 1. Chest Pain 2. Sob 3. Foot Pain Real Estate Sales AssociateOptical Designer of Care interventions/Action Plan: 5 - 7 day follow-up with PCP in place - Date: 06/01/2020 Educated on role of BALDOMERO completed with patient/caregiver. Educated patient/caregiver on patient right to have input on BALDOMERO plan of care. Verification of Home Health/DME if indicated: YES Patient needs home health. Referral pended to pcp Identified Care Gaps: No Care Gaps closed this call: Transition of Care follow-up communication Re-evaluation of Plan of Care and progress towards goals achievement: Patient education this visit: Verbal, Insulin, BSG, Medications and follow ups Plan to verbalizes understanding and agrees with plan. Rosio Hunter RN documented in this encounter Plan of Treatment Upcoming Encounters Date Type Specialty Care Team Description 0 Office Visit Gynecology Obstetrics WilmotMarie MD [address] [place] [address] [phone] Cardiac Studies Cardiac Studies Dobutamine [address] [place] [address] 0 Pharmacy Pharmacy [address] [address] [phone] Office Visit Gastroenterology Lyssa Stout CRNP [address] [place] [address] [phone] 0 Office Visit Hematology Oncology Tono Sanchez MD [address] [place] [address] [phone] 0 Office Visit Pharmacy [facility] [address] [place] [address] [phone] Office Visit Wound Care Prakash Honeycutt, JEYSON [address] [place], [place] [address] 0 Office Visit Endocrinology Alberta Duque PA-C [address] [place] [address] [phone] Office Visit Gastroenterology Essence Chase PA-C [address] [place], [place] [address] [phone] 0 Office Visit Family Medicine Rajwinder Carter, DO [address] [place] [facility] [place] [address] [phone] Hospital Encounter Surgery Janis Hatch, DO [address] [place] [address] [phone] Surgery Surgery Janis Hatch, DO [address] [place] [address] [phone] ESOPHAGOGASTRODUODENOSCOPY (EGD), FLEXIBLE, TRANSORAL, DIAGNOSTIC 0 Imaging [...] topic documented as of this encounter Implants Not on filedocumented as of this encounter Advance Directives Documents on File Type Date Recorded Patient Data Science And Iot Manager Expl anation Advanced Directive service a [...]
--- OUTSIDE RECORDS SUMMARY | 2023-05-10 22:21 | External Medical Summary ---
Author Name Unknown Address [address] [place] [address] Phone Organization K01:[facility] [address] [id number] Laboratory Report Ordering Provider Test Date Status JAYESH MCDUFFIE 06/09/2020 19:12:00 Final Observation Date Value Abnormality Reference (Units ) Status Color of Urine by Auto 06/09/2020 20:30 STRAW Abnormal YEL Final Clarity, Urine 06/09/2020 20:30 CLEAR CLEAR Final Glucose [Mass/volume] in Urine by Automated test strip 06/09/2020 20:30 NEGATIVE NEG (mg/dL) Final Bilirubin [Presence] in Urine by Automated test strip 06/09/2020 20:30 NEGATIVE NEG Final Ketones [Mass/volume] in Urine by Automated test strip 06/09/2020 20:30 NEGATIVE NEG (mg/dL) Final Specific gravity, Urine 06/09/2020 20:30 1.012 1.003-1.030 Final Hemoglobin [Presence] in Urine by Automated test strip 06/09/2020 20:30 SMALL Abnormal NEG Final pH, Urine 06/09/2020 20:30 6.5 5.0-7.5 (units) Final Protein [Mass/volume] in Urine by Automated test strip 06/09/2020 20:30 TRACE Abnormal NEG (mg/dL) Final Urobilinogen [Mass/volume] in Urine by Automated test strip 06/09/2020 20:30 NORMAL NORM (mg/dL) Final Nitrite [Presence] in Urine by Automated test strip 06/09/2020 20:30 NEGATIVE NEG Final Leukocyte esterase [Presence] in Urine by Automated test strip 06/09/2020 20:30 MODERATE Abnormal NEG Final Bacteria [#/area] in Urine by Automated count 06/09/2020 20:30 0-25 [id number] (/HPF) Final Leukocytes [#/area] in Urine sediment by Automated count 06/09/2020 20:30 3-5 Abnormal U02 (/HPF) Final Erythrocytes [#/area] in Urine sediment by Automated count 06/09/2020 20:30 0-2 U02 (/HPF) Final Performing Location [facility] [address] [facility] [place] [address]
--- OUTSIDE RECORDS SUMMARY | 2023-05-10 22:21 | External Medical Summary | Summary of Care ---
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 great toe (HCC) Chad Reyes PA-C [address] [place] [address] Encounter Details Date Type Department Care Team Description 06/09/2020 Office Visit Endocrinology, Tina [address], [place] [id number] Alberta Duque PA-C [address] [place] [address] Type 2 diabetes mellitus with hemoglobin A1c goal of less than 7.0% ([facility])* Allergies Active Allergy Reactions Severity Noted Date Comments Adhesive Tape Itching 04/29/2020 Penicillins Rash 02/12/2008 documented as of this encounter (statuses as of 06/09/2020) Medications Medication Sig Dispensed Refills Start Date [...] 120 Vial 11 10/02/2019 Active nystatin (NYSTOP) 626469 UNIT/GM powder Apply topically to affected area [...] than 7.0% ([facility]) Inject 1 syringeful once weekly 6 [...] breakfast. 90 Cap 3 05/04/2020 Active PEG 1333-TEh-YdVcj-NaCl- NaSulf (GOLYTELY) 227.1 g PACK Drink 2 [...] SYSTM) MISC Freestyle Xochitl 2 14-day Sensor (190428) (2 sensors=28 day/1-month supply) 2 Each 1 05/26/2020 Active Continuous Blood Gluc Defective Cigarette Slitter (FREESTYLE XOCHITL 2 READER SYSTM) KORTNEY Freestyle Xochitl 2 14-day Defective Cigarette Slitter (658981) 1 Package 0 05/26/2020 Active famotidine (PEPCID) [...] 4 weeks 600 mL 0 06/05/2020 Active documented as of this encounter (statuses as of 06/09/2020) Active Problems Problem Noted Date Diabetic ulcer [...] as of this encounter (statuses as of 06/09/2020) Resolved Problems Problem Noted Date Resolved Date [...] pain 01/24/2012 01/17/2017 Genetic Sleep Disorder Research Other*[id number] 05/13/2011 04/07/2016 Obstructive sleep apnea 01/18/2011 12/27/19 [...] as of this encounter (statuses as of 06/09/2020) Immunizations Name Administration Dates Next Due HEP [...] - Pulse - - Temperature 36.3 C (97.3 F) 06/09/2020 2:58 PM ED T Respiratory Rate - - Oxygen Saturation - - Inhaled Oxygen Concentration - - Weight - - Height 149.9 cm (4' 11") 06/09/2020 2:58 PM EDT Body Mass Index - - [...] * Patient Instructions* Alberta Duque PA-C - 06/09/2020 3:39 PM EDT Please call in 1-2 weeks with blood sugar Increase Lantus to 26 units , can increase to 28 units if blood sugars are still elevated Please call with any concerns, or if blood sugars < 70 documented in this encounter Progress Notes * Alberta Duque PA-C - 06/09/2020 3:00 PM EDT CC Diabetes mellitus type 2 Referred by: Chad Reyes PA-C HPI Shiana Bustos is a 65 year old female who was diagnosed with diabetes about 2 years ago. Family history of diabetes includes father T2DM, sister T2DM . Diabetes historically has been uncontrolled. Current issues include - blood sugars range 240-270 per patient - just got Xochitl at the pharmacy - recently admitted at [facility] for UTI, and diabetic foot ulcer - most recent A1C was 11 % Current DM Rx: Current Outpatient Medications (Antidiabetic) Medication Sig Dispense Refill Insulin Aspart 100 UNIT/ML Subcutaneous Solution (NovoLOG) Inject 20 units under the skin before breakfast, 24 units before lunch, and 20 units before supper 60 mL 3 MetFORMIN (GLUCOPHAGE) 1000 MG Tablet Take 1 Tab by mouth 2 times a day. 180 Tab 1 insulin glargine (LANTUS SOLOSTAR) 100 UNIT/ML SOPN inject 24 units under the skin at bedtime (Patient taking differently: 30 Units. inject 30 units under the skin at bedtime) 15 mL 5 Dulaglutide (TRULICITY) 1.5 MG/0.5ML SOPN Inject 1 syringeful once weekly 6 mL 1 Diet: Breakfast : piece of toast , and ensure Lunch: sandwich Dinner: meat, potatoes, Exercise: - limited Weight: Wt Readings from Last 4 Encounters: 06/03/20 113.4 kg (250 lb) 05/29/20 116.1 kg (256 lb) 05/26/20 118.5 kg (261 lb 3.9 oz) 05/23/20 116.1 kg (256 lb) Hypoglycemia - denies Microvascular complications: Neuropathy: : [...] less than 7.0% ([facility]) 09/26/2013 ICD-10 update of inactive term PSH Past Surgical History: Procedure Laterality Date BONE DEBRIDEMENT, FIRST 20 CM2 Right 04/16/2020 DEBRIDEMENT SKIN SUBCUTANEOUS TISSUE MUSCLE AND BONE performed by Josh Vazquez MD at OR [facility] DELIVERY 04/20/1982 COLONOSCOPY 04/21/2009 repeat in 10 years COLONOSCOPY, DIAGNOSTIC (RECTUM) 10/04/2016 normal bx, repeat 10 yrs/[facility] COLONOSCOPY, DIAGNOSTIC (RECTUM) N/A 06/03/2020 internal hemorrhoids/biopsies show adenomatous polyps/recall 5 years/COLONOSCOPY FLEXIBLE PROXIMAL DIAGNOSTIC performed by Janis Hatch DO at OR [facility] DENTAL SURGERY PROCEDURE NEC wisdom teeth [...] formed by Janis Hatch DO at OR [facility] PELVIS/HIP JOINT SURGERY NEC teenager aid in walking REPAIR/GRAFT ACHILLES TENDON age 40 aid in walking MEDS Outpatient Medications Marked as Taking for the 06/09/20 encounter (Office Visit) with Alberta Duque PA-C Medication Sig Insulin Aspart 100 UNIT/ML Subcutaneous Solution (NovoLOG) Inject 20 units under the skin before breakfast, 24 units before lunch, and 20 units before supper Sucralfate 1 GM/10ML Oral Suspension (Carafate) Take 10 mL by mouth 2 times a day. Use twice daily for 4 weeks famotidine (PEPCID) 20 MG Tablet Take 1 Tab by mouth every night at bedtime. Clindamycin HCl 300 MG Capsule Take 2 Caps by mouth 3 times a day. Continuous Blood Gluc Defective Cigarette Slitter (FREESTYLE XOCHITL 2 READER SYSTM) KORTNEY Freestyle Xochitl 2 14-day Defective Cigarette Slitter (396357) Continuous Blood Gluc Sensor (FREESTYLE XOCHITL 2 SENSOR SYSTM) MISC Freestyle Xochitl 2 14-day Sensor (430565) (2 sensors=28 day/1-month supply) silver sulfadiazine (SILVADENE) 1 % cream Apply topically to affected area daily. Apply to right great toe potassium chloride ER 10 MEQ TBCR TAKE 1 TABLET BY MOUTH ONCE DAILY WITH FOOD Insulin Pen Needle (BD PEN NEEDLE MINI U/F) 31G X 5 MM Use with lantus daily cyclobenzaprine (FLEXERIL) 10 MG Tablet TAKE 1 TABLET ONCE DAILY AT BEDTIME escitalopram (LEXAPRO) 20 MG Tablet TAKE 1 TABLET BY MOUTH ONCE DAILY gabapentin (NEURONTIN) 300 MG Capsule TAKE 1 CAPSULE BY MOUTH IN THE MORNING, 1 CAPSULE MIDDAY,AND 2 CAPSULES IN THE EVENING traZODone (DESYREL) 50 MG Tablet TAKE 1 TABLET BY MOUTH AT BEDTIME nadolol (CORGARD) 20 MG Tablet TAKE 2 TABLETS BY MOUTH ONCE DAILY MetFORMIN (GLUCOPHAGE) 1000 MG Tablet Take 1 Tab by mouth 2 times a day. linaCLOtide (LINZESS) 290 MCG Capsule Take 1 Cap by mouth daily before breakfast. PEG 7978-SMy-PwVks-NaCl-NaSulf (GOLYTELY) 227.1 g PACK Drink 2 liters two days before colonoscopy and 2 liters the day before colonoscopy tamsulosin (FLOMAX) 0.4 MG Capsule TAKE 1 CAPSULE BY MOUTH ONCE DAILY oxybutynin (DITROPAN) 5 MG Tablet TAKE 1 TABLET BY MOUTH TWICE DAILY insulin glargine (LANTUS SOLOSTAR) 100 UNIT/ML SOPN inject 24 units under the skin at bedtime (Patient taking differently: 30 Units. inject 30 units under the skin at bedtime) pantoprazole (PROTONIX) 20 MG TBEC TAKE 2 TABLETS BY MOUTH ONCE DAILY levothyroxine (LEVOXYL) 200 MCG Tablet Take 1 Tab by mouth daily. furosemide (LASIX) 20 MG Tablet TAKE 1 TABLET BY MOUTH ONCE DAILY NEEDED FOR EDEMA atorvaSTATin (LIPITOR) 40 MG Tablet TAKE 1 TABLET BY MOUTH EVERY NIGHT AT BEDTIME Dulaglutide (TRULICITY) 1.5 MG/0.5ML SOPN Inject 1 syringeful once weekly SM ASPIRIN ADULT LOW STRENGTH 81 MG TBEC TAKE 1 TABLET BY MOUTH ONCE DAILY Blood Glucose Monitoring Suppl (BLOOD GLUCOSE MONITOR SYSTEM) w/Device KIT Use to test once perday. Glucose Blood (BLOOD GLUCOSE TEST) STRP Use to test once per day. Lancets MISC Use to test once per day. Albuterol Sulfate (ALBUTEROL HFA) 108 (90 BASE) MCG/ACT inhaler Inhale 2 Puffs by mouth every 4hours as needed for Cough or Wheezing. With spacer nystatin (NYSTOP) 331596 UNIT/GM powder Apply topically to affected area [...] CENTRUM SILVER PO TABS 1 tab daily Current Facility-Administered Medications for the 06/09/20 encounter (Office Visit) with Alberta Duque PA-C Medication [COMPLETED] silver sulfadiazine (SILVADENE) 1 % cream ALL Reviewed and updated in the appropriate section of the electronic health record SH Social History Tobacco Use Smoking status: Never Smoker Smokeless tobacco: Never Used Substance Use Topics Alcohol use: No Drug use: No Comment: too much soda FH Family History Problem Relation Age of Onset Heart Disorder Father of MT at age 61 Diabetes Father Heart Disorder Mother of MT age 72 Cancer None Arthritis None Stroke None Heart Disorder Sister Mi at age 46 Hypertension Sister Mental Disorder None ROS 10 systems reviewed , as per HPI All other were negative. PE Filed Vitals: 06/09/20 1458 Temp: 36.3 C (97.3 F) Height: (!) 1.499 m (4' 11") Body mass index is 50.49 kg/m. GEN: pleasant, well-appearing, in wheel chair EYES- PERRL. normal lids and sclerae. ENT- O/P clear mosit MM. NECK- Thyroid normal in size without nodularity. no masses. no enlargement of fat pads. LN- no cervical, suboccipital, or supraclavicular LAD. CV- regular rate, regular rhythm, no murmurs. + peripheral edema. PULM- CTAB with normal expansion. ABD- +BS, soft, nt/nd. SKIN- normal temperature and texture. Feet in poor condition. Injection sites on abdomen without hypertrophy. PSYCH- A&Ox3. Normal mood and affect. MSK- Normal bulk/tone. - foot deformity ( healing ulcer on right foot ) . RECORDS I reviewed the available medical records regarding her diabetes management at her most recent Admission on 06/03/2020 and have summarized the relevant information per HPI above. LABS HEMOGLOBIN, A1C(%) Lucio Dt/Tm Resulted Value Status 05/26/20 4:44A 05/26/20 11.0* FINAL 04/28/20 4:37P 04/28/20 9.9* FINAL 02/21/20 11:43A 02/21/20 6.7* FINAL LDL (DIRECT MEASURE)(mg/dL) Lucio Dt/Tm Resulted Value Status 02/21/20 11:43A 02/21/20 46 FINAL MICROALBUMIN RATIO(mg/g creat) Lucio Dt/Tm Resulted Value Low High Status 01/11/19 1:29P 01/11/19 <10 FINAL 02/03/17 9:58A 02/03/17 <15 FINAL 08/25/15 1:56P 08/25/15 27 FINAL BASIC METAB PANEL, BMP Lucio Dt/Tm Resulted Value Status BUN (mg/dL) 05/26/20 4:44A 05/26/20 10 F CREATININE (mg/dL) 05/26/20 4:44A 05/26/20 0.6 F E GLOM FILT RATE ( ) 05/26/20 4:44A 05/26/20 >60.0 F SODIUM (mmol/L) 05/26/20 4:44A 05/26/20 139 F POTASSIUM (mmol/L) 05/26/20 4:44A 05/26/20 3.8 F CHLORIDE (mmol/L) 05/26/20 4:44A 05/26/20 103 F CO2 (mmol/L) 05/26/20 4:44A 05/26/20 26 F ANION GAP (mmol/L) 05/26/20 4:44A 05/26/20 10 F GLUCOSE (mg/dL) 05/26/20 4:44A 05/26/20 267* F CALCIUM (mg/dL) 05/26/20 4:44A 05/26/20 8.7 F IMP Shaina Bustos is a 65 year old female who was diagnosed with diabetes about 2 years ago. Was startedon Mealtime insulin during her most recent hospital admission. Blood sugars since discharged have been ranging in the mid 200s per patient. Did not bring meter or log book. She just received the Freestyle Xochitl in the mail and will talk with her MTM pharmacist to help start the Xochitl. Discussed to increase her Lantus at this time by 2 units to see if this helps with the hyperglycemia. Discussed to follow up in about 4-6 weeks, should continue to follow with MTM pharmacist in between . PLAN Type 2 diabetes mellitus with hemoglobin A1c goal of less than 7.0% ([facility]) (Primary) - Continue Novolog 20 units at breakfast and dinner, and 24 units at lunch - increase Lantus to 26 units - continue to test 3-4 times a day - start Freestyle Xochitl sensor - continue Trulicity / weekly - continue Metformin 1,000 mg BID Follow Up: Return for Diabetes Return. | For: Diabetes Return | Check-out note: Would prefer Jul 21 Alberta Duque PA-C [facility] [address] [facility] [address] Phone: [phone] Fax: [phone] documented in this encounter Nursing Notes * Rosy Sánchez LPN - 06/09/2020 2:56 PM EDT Patient denies any signs/symptoms of COVID. Rosy Sánchez LPN Endocrinology Janet 7 documented in this encounter Plan of Treatment Upcoming Encounters Date Type Specialty Care Team Description 0 Office Visit Gynecology Obstetrics CharlestonMarie MD [address] [place] [address] [phone] Cardiac Studies Cardiac Studies Dobutamine [address] [place] [address] 0 Pharmacy Pharmacy [facility] [address] [place] [address] [phone] Office Visit Gastroenterology Lyssa Stout CRNP [address] [place] [address] [phone] 0 Office Visit Hematology Oncology Tono Sanchez MD [address] [place] [address] [phone] 0 Office Visit Pharmacy [facility] [address] [place] [address] [phone] 0 Office Visit Wound Care Prakash Honeycutt, JEYSON [address] [place] [address] 0 Office Visit Endocrinology Alberta Duque, JEYSON [address], [place] [address] 0 Office Visit Gastroenterology Essence Chase PA-C [address] [place], [place] [address] [phone] Office Visit Family Medicine Rajwinder Carter, DO [address] [facility], [place] [address] [phone] Hospital Encounter Surgery Janis Hatch, DO [address] 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 (HCC) Ordered: 05/26/2020 Health Maintenance Due Date Last Done Comments [...] of this encounter Implants Implanted Type Area Veterinary Assistant Device Identifier Shelf Expiration Date Model / Serial / Lot Microtech Sure Clip Implanted:Qty: 2 on 06/03/2020 by Janis Hatch DO at OR [facility] Clip N/A: Colon 04/21/2022 [facility]-F-26-2 35-C-R / / [id number] documented as of this encounter Visit Diagnoses Diagnosis Type 2 diabetes mellitus with hemoglobin A1c goal of less than 7.0% (HCC)- Primary Portal hypertension (HCC) Portal hypertension Esophageal varices (HCC) Esophageal varices without mention of bleeding documented in this encounter Advance Directives Documents on File Type Date Recorded Patient Crew Leader Expl anation Advanced Directive service a kerri [...] Healthcare Agent [facility] Communication Syed Bustos Spouse Emergency Contact
--- OUTSIDE RECORDS SUMMARY | 2023-05-10 22:22 | External Medical Summary | Summary of Care ---
Author Name Unknown Organization [facility] [place] [address] Care Team Providers Care Retail Loss Prevention Specialist Name Role Phone Alexandra Caceres Primary Care Provider Reason for Visit * Reason Onset Date Comments Other 06/05/2020 Encounter Details Date Type Department Care Team Description 06/05/2020 Telephone [facility], [facility] [address] [facility] [place] [address] Janis Hatch DO [address] [facility] [place] [address] [phone] Other Allergies Active Allergy Reactions Severity Noted Date Comments Adhesive Tape Itching 04/29/2020 Penicillins Rash 02/12/2008 documented as of this encounter (statuses as of 06/05/2020) Medications Medication Sig Dispensed Refills Start Date [...] 120 Vial 11 10/02/2019 Active nystatin (NYSTOP) 970894 UNIT/GM powder Apply topically to affected area [...] FOR EDEMA 30 Tab 5 01/28/2020 Active Additional Information Patient not taking. Reported on 06/03/2020 levothyroxine (LEVOXYL) 200 MCG Tablet Take 1 [...] breakfast. 90 Cap 3 05/04/2020 Active PEG 6012-KFs-IxIxp-Na Cl-NaSulf (GOLYTELY) 227.1 g PACK Drink 2 [...] a day. 40 Cap 0 05/26/2020 Active Additional Information Patient not taking. Reported on 06/03/2020 silver sulfadiazine (SILVADENE) 1 % cream Apply topically to affected area daily. Apply to right great toe 50 g 0 05/26/2020 Active Continuous Blood Gluc Sensor (FREESTYLE XOCHITL 2 SENSOR SYSTM) MIS Freestyle Xochitl 2 14-day Sensor (584886) (2 sensors=28 day/1-month supply) 2 Each 1 05/26/2020 Active Additional Information Patient not taking. Reported on 06/03/2020 Continuous Blood Gluc Media Marketing Specialist (FREESTYLE XOCHITL 2 READER SYSTM) KORTNEY Freestyle Xochitl 2 14-day Media Marketing Specialist (604155) 1 Package 0 05/26/2020 Active Additional Information Patient not taking. Reported on 06/03/2020 famotidine (PEPCID) 20 MG Tablet Take 1 [...] 4 weeks 600 mL 0 06/05/2020 Active Sucralfate 1 GM Oral Tablet (CARAFATE) Take 1 Tab by mouth 4 times a day before meals and at bedtime. 120 Tab 11 06/01/2020 0 Discontinued documented as of this encounter (statuses as of 06/05/2020) Active Problems Problem Noted Date Diabetic ulcer [...] as of this encounter (statuses as of 06/05/2020) Resolved Problems Problem Noted Date Resolved Date [...] pain 01/24/2012 01/17/2017 Genetic Sleep Disorder Research Other*[id number] 05/13/2011 04/07/2016 Obstructive sleep apnea 01/18/2011 12/27/19 [...] as of this encounter (statuses as of 06/05/2020) Immunizations Name Administration Dates Next Due HEP [...] Miscellaneous Notes * Telephone Encounter - Dominique Contreras OSA - 06/05/2020 3:29 PM EDT 08/05 egd * Telephone Encounter - Sierra Vincent RN - 06/05/2020 2:24 PM EDT Called patient. Spoke to her and her spouse. They verbalize understanding and plan to cloth picker the liquid Carafate. Transferred to schedulers to schedule f/up endoscopy. * Telephone Encounter - Alxeandra Caceres DO - 06/05/2020 2:00 PM EDT Thank you for seeing her. * Telephone Encounter - Janis Hatch DO - 06/05/2020 1:41 PM EDT Please let the patient know that her biopsies from the esophagus did show inflammatory changes. This is most likely related to a pill having been stuck in her esophagus. I would recommend that she use Carafate slurry 2 times daily for 4 weeks. We should plan on a repeat upper endoscopy in 8-12 weeks to ensure healing. documented in this encounter Plan of Treatment Upcoming Encounters Date Type Specialty Care Team Description 0 Pharmacy [facility] [address], [place] [id number] Type 2 diabetes mellitus with hemoglobin A1c goal of less than 7.0% ([facility])* 0 Office Visit Wound Care Prakash Honeycutt PA-C [address], [place] [address] 0 Office Visit Endocrinology Alberta Duque PA-C [address], [place] [phone] 0 Office Visit Gynecology Obstetrics KenvilMarie MD [address], [place] [address] 0 Cardiac Studies Cardiac Studies Dobutamine [address] [place] [address] 0 Pharmacy Pharmacy [facility] [address] [place] [address] [phone] Office Visit Gastroenterology Lyssa Stout CRNP [address] [facility] [place] [address] [phone] 0 Office Visit Hematology Oncology Tono Sanchez MD [address] [place] [address] [phone] 0 Office Visit Pharmacy [facility] [address] [facility] [place] [address] [phone] Office Visit Family Medicine Rajwinder Carter, DO [address] [facility] [place] [address] [phone] Nutrition Services Gastroenterology Melissa Omalley, RDN [address] [place] [address] [phone] Hospital Encounter Surgery Janis Hatch, DO [address] [place] [address] [phone] Surgery Surgery Janis Hatch, DO [address] [place] [address] [phone] ESOPHAGOGASTRODUODENOSCOPY (EGD), FLEXIBLE, TRANSORAL, DIAGNOSTIC 0 Imaging Radiology Health Maintenance Due Date Last Done Comments DIABETES-EYE EXAM 06/12/2019 06/12/2018, , 06/12/2018, Additional history exists PAP SMEAR-EVERY 3 YRS,AGES 21-65 10/10/2019 10/10/2016, 07/02/2014, 04/16/2013, Additional history exists DIABETES-URINE MICROALBUMIN EVERY 12 [...] 04/25/2021 04/25/2020, 02/09, 11/11/2019, Additional history exists DTaP,Tdap,and Td Vaccines (3 - Td) 05/01/2027 05/01/2017, 05/26/2008 Influenza Vaccine (FLU shot) Completed , 06/05/2019, 06/05/2019, Additional history exists MENINGOCOCCAL (MENACTRA/MENVEO) Aged Out No longer eligible based on patient's age to complete this topic documented as of this encounter Implants Implanted Type Area Global Sales Executive Device Identifier Shelf Expiration Date Model / Serial / Lot Microtech Sure Clip Implanted:Qty: 2 on 06/03/2020 by Janis Hatch DO at OR [facility] Clip N/A: Colon 04/21/2022 [facility]-F-26-2 35-C-R / / [id number] documented as of this encounter Advance Directives Documents on File Type Date Recorded Patient Mail Reader Expl anation Advanced Directive service a kerri [...]
--- OUTSIDE RECORDS SUMMARY | 2023-05-10 22:22 | External Medical Summary ---
Author Name Unknown Address [address] [facility] [place]. [place] [address] Phone Organization K01[facility] [address] [facility] [place] [address] Laboratory Report Ordering Provider Test Date Status AUGUST MCDUFFIEIOLONE 06/09/2020 17:29:00 Final Observation Date Value Abnormality Reference (Units) Status WBC, Total 06/09/2020 19:04 2.95 Below low normal 4.00-10.80 (K/uL) Final RBC 06/09/2020 19:04 3.05 Below low normal 3.85-5.15 (M/uL) Final Hemoglobin 06/09/2020 19:04 8.9 Below low normal 12.0-15.3 (g/dL) Final HCT 06/09/2020 19:04 29.9 Below low normal 36.0-45.2 (%) Final MCV 06/09/2020 19:04 98.0 Above high normal 81.5-97.5 (fL) Final MCH 06/09/2020 19:04 29.2 27.0-34.0 (pg) Final MCHC 06/09/2020 19:04 29.8 Below low normal 32.0-36.0 (g/dL) Final RDW 06/09/2020 19:04 15.8 Above high normal 11.5-15.5 (%) Final Platelets 06/09/2020 19:04 98 Below low normal 140-400 (K/uL) Final MPV 06/09/2020 19:04 NO RESULT - ABNORMAL PLATELET DISTRIBUTION 6.6-11.1 (fL) Final Nucleated erythrocytes/100 leukocytes [Ratio] in Blood by Automated count 06/09/2020 19:04 0 0 (/100 WBCs) Final Segs 06/09/2020 19:20 54.6 40-75 (%) Final Lymphs % 06/09/2020 19:20 27.8 18-42 (%) Final Monos 06/09/2020 19:20 9.5 1-11 (%) Final Eosinophils 06/09/2020 19:20 6.8 Above high normal 0-6 (%) Final Basos 06/09/2020 19:20 1.0 0-2 (%) Final Immature Granulocyte, Percent 06/09/2020 19:20 0.3 0-2 (%) Final Neutrophils [#/volume] in Blood 06/09/2020 19:20 1.61 Below low normal 1.8-7.7 (K/uL) Final Lymphs, absolute 06/09/2020 19:20 0.82 Below low normal 1.0-4.8 (K/uL) Final Monos, Abs 06/09/2020 19:20 0.28 0.0-1.1 (K/uL) Final Eos, Abs 06/09/2020 19:20 0.20 0.0-0.7 (K/uL) Final Basos, Abs 06/09/2020 19:20 0.03 0.0-0.2 (K/uL) Final Immature Granulocytes, Number 06/09/2020 19:20 0.01 0.0-0.2 (K/uL) Final Anisocytosis [Presence] in Blood by Light microscopy 06/09/2020 19:20 MODERATE Final Hypochromia [Presence] in Blood by Light microscopy 06/09/2020 19:20 SLIGHT Final Ovalocytes [Presence] in Blood by Light microscopy 06/09/2020 19:20 FEW Final Dacrocytes [Presence] in Blood by Light microscopy 06/09/2020 19:20 FEW Final Performing Location [facility] [address] [facility] [facility] [address]
--- OUTSIDE RECORDS SUMMARY | 2023-05-10 22:22 | External Medical Summary | Summary of Care ---
Author Name Unknown Organization [facility] Address [place] [address] Care Team Providers Care Environmental Services Director Name Role Phone CarlosjoseAlexandra mcdonough Primary Care Provider Encounter Details Date Type Department Care Team Description 06/05/2020 Telephone [facility]enter[facility], [facility] [address] [facility] [place] [address] Janis Hatch DO [address] [facility] [address] [phone] Allergies Active Allergy Reactions Severity Noted Date [...] 120 Vial 11 10/02/2019 Active nystatin (NYSTOP) 714253 UNIT/GM powder Apply topically to affected area [...] breakfast. 90 Cap 3 05/04/2020 Active PEG 2542-FPg-XeElo-Na Cl-NaSulf (GOLYTELY) 227.1 g PACK Drink 2 [...] SYSTM) MIS Freestyle Xochitl 2 14-day Sensor (753659) (2 sensors=28 day/1-month supply) 2 Each 1 05/26/2020 Active Additional Information Patient not taking. Reported on 06/03/2020 Continuous Blood Gluc Geriatric Care Manager (FREESTYLE XOCHITL 2 READER SYSTM) KORTNEY Freestyle Xochitl 2 14-day Geriatric Care Manager ([id number]) 1 Package 0 05/26/2020 Active Additional Information [...] pain 01/24/2012 01/17/2017 Genetic Sleep Disorder Research Other*[id number] 05/13/2011 04/07/2016 Obstructive sleep apnea 01/18/2011 12/27/19 [...] Telephone Encounter - Alexandra Caceres DO - 06/05/2020 2:00 PM EDT [...] Encounters Date Type Specialty Care Team Description 06/05/2020 Pharmacy Pharmacy [facility] [address] [place] [address] [phone] Type 2 diabetes mellitus with hemoglobin A1c goal of less than 7.0% ([facility])* 06/09/2020 Office Visit Wound Care Prakash Honeycutt PA-C [address] [place] [address] [phone] 06/09/2020 Office Visit Endocrinology Alberta Duque PA-C [address] [place] [address], [place] [phone] 06/10/2020 Office Visit Gynecology Obstetrics Marie Myrick MD [address], [place] [address] 06/11/2020 Cardiac Studies Cardiac Studies Dobutamine [address] [place], [place] [id number] 06/12/2020 Pharmacy Pharmacy [facility] [address] [place] [address] [phone] 06/23/2020 Office Visit Gastroenterology Lyssa Stout CRNP [address] [place] [address] [phone] 06/30/2020 Office Visit Hematology Oncology Tono Sanchez MD [address] [place] [address] [phone] 07/01/2020 Office Visit Pharmacy [facility] [address] [place] [address] [phone] 07/29/2020 Office Visit Family Medicine Rajwinder Carter DO [address] [place] [address] [phone] 07/31/2020 Nutrition Services Gastroenterology Melissa Omalley RDN [address] [place] [address] [phone] 09/03/2020 Imaging Radiology Health Maintenance Due Date Last [...] of this encounter Implants Implanted Type Area Steam Plant Records Clerk Device Identifier Shelf Expiration Date Model / Serial / Lot Microtech Sure Clip Implanted:Qty: 2 on 06/03/2020 by Janis Hatch DO at OR [facility] Clip N/A: Colon 04/21/2022 [facility]-F-[id number] 35-C-R / / [id number] documented as of this encounter Advance Directives Documents on File Type Date Recorded Patient Hand Crown Pouncer Expl anation Advanced Directive service a kerri [...] Agents on File Name Relationship Healthcare Agent [facility] Communication Syed Bustos Spouse Emergency Contact
--- OUTSIDE RECORDS SUMMARY | 2023-05-10 22:22 | External Medical Summary | Summary of Care ---
Author Name Unknown Organization [place] [address] Care Team Providers Care Drink Box Mechanic Name Role Phone Alexandra Mane DO Primary Care Provider [phone] Reason for Referral * Ancillary Services (Within 10 days (routine)) Status Reason Specialty Diagnoses / Procedures Referred By Contact Referred To Contact Pending Review Ancillary Services Required Gastroenterology Diagnoses Esophageal dysphagia Alexandra Mane DO [address] [place] [address] Encounter Details Date Type Department Care Team Description 06/01/2020 Telephone [facility] [address] [place] [address] Alexandra Mane DO [address], [place] [id number] Allergies Active Allergy Reactions Severity Noted Date Comments Adhesive Tape Itching 04/29/2020 Penicillins Rash 02/12/2008 documented as of this encounter (statuses as of 06/02/2020) Medications Medication Sig Dispensed Refills Start Date End Date Status CENTRUM SILVER PO TABS 1 tab daily 1 Tab 0 05/25/2012 Active vitamin c (ASCORBIC ACID) 500 MG Tablet Take 500 mg by mouth daily. 0 Active fluticasone (FLONASE) 50 MCG/ACT nasal sprayIndications:Si nus congestion INSTILL 2 SPRAYS INTO EACH NOSTRIL DAILY DIRECTED 16 g 5 08/01/2019 Active albuterol sulfate (PROVENTIL) (2.5 MG/3ML) 0.083% nebulizer solutionIndications :Pulmonary vascular congestion Inhale 1 Vial via nebulizer every 6 hours as needed for Wheezing. 120 Vial 11 10/02/2019 Active nystatin (NYSTOP) 328823 UNIT/GM powder Apply topically to affected area [...] 3 12/04/2019 Active Dulaglutide (TRULICITY) 1.5 MG/0.5ML SOPNIndications:Typ e 2 diabetes mellitus with hemoglobin A1c goal of less than 7.0% (HCC) Inject 1 syringeful once weekly 6 mL 1 12/04/2019 Active atorvaSTATin (LIPITOR) 40 MG TabletIndications:D yslipidemia, goal LDL below 70 TAKE 1 TABLET BY MOUTH EVERY NIGHT AT BEDTIME 90 Tab 1 12/30/2019 Active furosemide (LASIX) 20 MG TabletIndications:L ocalized edema,Venous stasis dermatitis of both lower extremities TAKE 1 TABLET BY MOUTH ONCE DAILY NEEDED FOR EDEMA 30 Tab 5 01/28/2020 Active levothyroxine (LEVOXYL) 200 MCG Tablet Take 1 Tab by mouth daily. 90 Tab 3 02/20/2020 Active pantoprazole (PROTONIX) 20 MG TBECIndications:Gas troesophageal reflux disease, esophagitis presence not specified,NAFLD (nonalcoholic fatty liver disease),Other cirrhosis of liver (HCC) TAKE 2 TABLETS BY MOUTH ONCE DAILY 180 Tab 1 02/26/2020 Active insulin glargine (LANTUS SOLOSTAR) 100 UNIT/ML SOPNIndications:Typ e 2 diabetes mellitus with hemoglobin A1c [...] breakfast. 90 Cap 3 05/04/2020 Active PEG 6682-RJw-OzBds-NaCl -NaSulf (GOLYTELY) 227.1 g PACK Drink 2 liters two days before colonoscopy and 2 liters the day before colonoscopy 1 Each 0 05/04/2020 Active MetFORMIN (GLUCOPHAGE) 1000 MG TabletIndications:T ype 2 diabetes mellitus with hemoglobin A1c [...] 2 05/21/2020 Active escitalopram (LEXAPRO) 20 MG TabletIndications:R ecurrent major depressive disorder, in partial remission (HCC) TAKE 1 TABLET BY MOUTH ONCE DAILY 90 Tab 1 05/21/2020 Active gabapentin (NEURONTIN) 300 MG Capsule TAKE 1 CAPSULE BY MOUTH IN THE MORNING, 1 CAPSULE MIDDAY, AND 2 CAPSULES IN THE EVENING 180 Cap 2 05/21/2020 Active traZODone (DESYREL) 50 MG TabletIndications:S leep disturbances TAKE 1 TABLET BY MOUTH AT BEDTIME 90 Tab 1 05/21/2020 Active Insulin Pen Needle (BD PEN NEEDLE MINI U/F) 31G X 5 MMIndications:Type 2 diabetes mellitus with hemoglobin A1c goal of less than 7.0% (HCC) Use with lantus daily 100 Each 3 05/22/2020 Active potassium chloride ER 10 MEQ TBCRIndications:Hyp [...] SYSTM) MISC Freestyle Xochitl 2 14-day Sensor (394014) (2 sensors=28 day/1-month supply) 2 Each 1 05/26/2020 Active Continuous Blood Gluc Tire Building Supervisor (FREESTYLE XOCHITL 2 READER SYSTM) KORTNEY Freestyle Xochitl 2 14-day Tire Building Supervisor (431603) 1 Package 0 05/26/2020 Active famotidine (PEPCID) 20 MG Tablet Take 1 Tab by mouth every night at bedtime. 34 Tab 0 05/29/2020 Active ondansetron (ZOFRAN) 4 MG Tablet Take 1 Tab by mouth every 12 hours as needed for Nausea for up to 6 days. 6 Tab 0 05/29/2020 06/04/2020 Active Insulin Aspart 100 UNIT/ML Subcutaneous Solution (NovoLOG) Inject 20 units under the skin before breakfast, 20 units before lunch, and 20 units before supper 60 mL 3 06/01/2020 Active NovoLOG FlexPen 100 UNIT/ML Subcutaneous Solution Pen-injector 0 05/26/2020 Active Sucralfate 1 GM Oral Tablet (CARAFATE) Take 1 Tab by mouth 4 times a day before meals and at bedtime. 120 Tab 11 06/01/2020 Active documented as of this encounter (statuses as of 06/02/2020) Active Problems Problem Noted Date Diabetic ulcer [...] as of this encounter (statuses as of 06/02/2020) Resolved Problems Problem Noted Date Resolved Date [...] pain 01/24/2012 01/17/2017 Genetic Sleep Disorder Research Other*[id number] 05/13/2011 04/07/2016 Obstructive sleep apnea 01/18/2011 12/27/19 [...] as of this encounter (statuses as of 06/02/2020) Immunizations Name Administration Dates Next Due HEP [...] Miscellaneous Notes * Telephone Encounter - Dominique Contreras, THAD - 06/02/2020 9:59 AM EDT Added egd. Pt aware. * Telephone Encounter - Ramez Ledbetter OSA - 06/02/2020 9:04 AM EDT Pt is schedule at [facility] OR. Forwarded to [facility]. * Telephone Encounter - Alexandra Mane DO - 06/01/2020 1:40 PM EDT EGD added She is already getting colonoscopy Please make pt awarea * Telephone Encounter - Alexandra Mane DO - 06/01/2020 1:39 PM EDT ----- Message from Janis Hatch DO sent at 06/01/2020 1:33 PM EDT ----- Sure, an upper endoscopy can be added. I wonder if her symptoms are more likely related to 1 of hermedications such as Trulicity or metformin. ----- Message ----- From: Alexandra Mane DO Sent: 06/01/2020 11:57 AM EDT To: Janis Hatch DO Good morning, I am seeing Shaina today, she typically sees Rajwinder Carter, but she is out and I am covering for her. She is here today for ongoing atypical chest pain, worse after eating and intermittent nausea. She was in the ER on Monday night, negative cardiac and pulmonary work up. She is scheduled with you at [facility] for colonoscopy, can she get EGD as well. She had one in november showed gastritis. Otherwise normal. She is taking protonix and 40 mg. Sounds like she could be getting esophageal spasms or could be gastroparesis. Let me know if an EGD can be added,and I will place the order. Thank you Alexandra mane documented in this encounter Plan of Treatment Upcoming Encounters Date Type Specialty Care Team Description 06/03/2020 Hospital Encounter Surgery Janis Hatch DO [address] [place] [address] [phone] 06/03/2020 Surgery Surgery Janis Hatch DO [address] [place] [address] [phone] COLONOSCOPY FLEXIBLE PROXIMAL DIAGNOSTIC 06/05/2020 Pharmacy Pharmacy [address] [address] [phone] 06/09/2020 Office Visit Wound Care Prakash Honeycutt PA-C [address] [facility], [place] [address] 06/09/2020 Office Visit Endocrinology Alberta Duque PA-C [address] [facility] [place] [address] 06/10/2020 Office Visit Gynecology Obstetrics Marie Myrick MD [address] [place] [facility] [place] [address] 06/11/2020 Cardiac Studies Cardiac Studies Dobutamine [address] [facility] [place] [address] 06/23/2020 Office Visit Gastroenterology Lyssa Stout CRNP [address] [place] [address] [phone] 06/30/2020 Office Visit Hematology Oncology Tono Sanchez MD [address] [place], [place] [address] 07/01/2020 Office Visit Pharmacy [facility] [address] [place] [address] 07/29/2020 Office Visit Family Medicine Rajwinder Carter DO [address] [place] [address] 07/31/2020 Nutrition Services Gastroenterology eMlissa Omalley RDN [address] [place] [address] [phone] 09/03/2020 Imaging Radiology Scheduled Referrals Name Type Priority Associated Diagnoses Orde r Schedule UPPER ENDOSCOPY GI REFERRAL OP Referral Within 10 days (routine) Esophageal dysphagia Ordered: 06/01/2020 Health Maintenance Due Date Last Done Comments [...] Not on filedocumented as of this encounter Visit Diagnoses Diagnosis Esophageal dysphagia- Primary Dysphagia, pharyngoesophageal phase Encounter for screening colonoscopy Special screening for malignant neoplasms, colon Nausea Nausea alone documented in this encounter Advance Directives Documents on File Type Date Recorded Patient Remote Sensing Technician Expl anation Advanced Directive service a [...] Date Activated Date Inactivated Comments Full Code 05/25/2020 8:43 PM 05/27/2020 12:10 [...]
--- OUTSIDE RECORDS SUMMARY | 2023-05-10 22:22 | External Medical Summary | Summary of Care ---
Author Name Unknown Organization [place] [address] Care Team Providers Care Acute Care Clinical Nurse Specialist Name Role Phone NickiAlexandra Daisha MORENO Primary Care Provider Reason for Visit * Reason Comments Dosage Adjustment Via Phone (anticoag Cl inic) Encounter Details Date Type Department Care Team Description 06/05/2020 Pharmacy Pharmacy, [address] [address] [facility] [address] [place] [address] [phone] Type 2 diabetes mellitus with hemoglobin A1c goal of less than 7.0% ([facility])* Allergies [...] 120 Vial 11 10/02/2019 Active nystatin (NYSTOP) 857006 UNIT/GM powder Apply topically to affected area [...] breakfast. 90 Cap 3 05/04/2020 Active PEG 4182-TBb-LnNnd-Na Cl-NaSulf (GOLYTELY) 227.1 g PACK Drink 2 [...] SYSTM) MISC Freestyle Xochitl 2 14-day Sensor (854619) (2 sensors=28 day/1-month supply) 2 Each 1 05/26/2020 Active Additional Information Patient not taking. Reported on 06/03/2020 Continuous Blood Gluc Agricultural Education Teacher (FREESTYLE XOCHITL 2 READER SYSTM) KORTNEY Freestyle Xochitl 2 14-day Agricultural Education Teacher (025684) 1 Package 0 05/26/2020 Active Additional Information Patient not taking. Reported on 06/03/2020 famotidine (PEPCID) 20 MG Tablet Take 1 Tab by mouth every night at bedtime. 34 Tab 0 05/29/2020 Active Sucralfate 1 GM Oral Tablet (CARAFATE) Take 1 Tab by mouth 4 times a day before meals and at bedtime. 120 Tab 11 06/01/2020 Active Insulin Aspart 100 UNIT/ML Subcutaneous Solution (NovoLOG) Inject 20 units under the skin before breakfast, 24 units before lunch, and 20 units before supper 60 mL 3 06/05/2020 Active Insulin Aspart 100 UNIT/ML Subcutaneous Solution (NovoLOG) Inject 20 units under the skin before breakfast, 20 units before lunch, and 20 units before supper 60 mL 3 06/01/2020 0 Discontinued NovoLOG FlexPen 100 UNIT/ML Subcutaneous Solution Pen-injector 0 05/26/2020 0 Discontinued documented as of this encounter [...] pain 01/24/2012 01/17/2017 Genetic Sleep Disorder Research Other*[id number] 05/13/2011 04/07/2016 Obstructive sleep apnea 01/18/2011 12/27/19 [...] Progress Notes * Indira Hudson, [facility] - 06/05/2020 9:57 AM EDT DM f/u call: Diabetes Medications: INCREASE: Novolog, Inject 20 units under the skin three times a day before meals. Lantus pen, 24 units daily Metformin 1000mg, 1 tablet twice a day Trulicity 1.5mg SQ weekly GFR >60 as of 05/29/20 Patient Phone Numbers Called and spoke with patient's . He reports BG readings the past few days, Pre am Post am Pre Lunch Post Lunch Pre pm Post pm HS 292 268 304 151 320 217 199 Pre am Post am Pre Lunch Post Lunch Pre pm Post pm HS Average 232 #DIV/0! 199 #DIV/0! 312 #DIV/0! #DIV/0! Hi 292 0 199 0 320 0 0 Lo 151 0 199 0 304 0 0 Range 141 0 0 0 16 0 0 Reviewed BG log. Patient not covering lunch so will increase dose of Novolog at lunch to 24 units. No other changes at this time. Patient will contact clinic with any issues or if BG not improving. Of note, [facility] denied prior auth for Xochitl. Called and spoke with rep who stated [facility] not require prior auth when secondary does not deny claim which is why it was denied. Providedphone number ([phone]) for pharmacy to call to get resolved. Called and spoke with pharmacy team at [facility] - provider phone number and they will follow-up. Diabetes Medications: INCREASE: Novolog, Inject 20 units before breakfast, 24 units before lunch, and 20 units before supper. Lantus pen, 24 units daily Metformin 1000mg, 1 tablet twice a day Trulicity 1.5mg SQ weekly GFR >60 as of 05/29/20 Will follow-up in 1 week Indira Hudson RPh, Pharm D, BCACP Clinical Pharmacist 06/05/20 10:12 AM documented in this encounter Plan of Treatment Upcoming Encounters Date Type Specialty Care Team Description 06/09/2020 Office Visit Wound Care Prakash Honeycutt PA-C [address] [place] [address] 06/09/2020 Office Visit Endocrinology Alberta Duque PA-C [address] [place] [address] 06/10/2020 Office Visit Gynecology Obstetrics Marie Myrick MD [address] [place] [address] 06/11/2020 Cardiac Studies Cardiac Studies Dobutamine [address] [place] [address] 06/12/2020 Pharmacy Pharmacy [facility] [address] [place] [address] [phone] 06/23/2020 Office Visit Gastroenterology Lyssa Stout CRNP [address] [facility] [place] [address] [phone] 06/30/2020 Office Visit Hematology Oncology Tono Sanchez MD [address] [place] [address] [phone] 07/01/2020 Office Visit Pharmacy [facility] [address] [place], [place] [address] 07/29/2020 Office Visit Family Medicine Rajwinder Carter DO [address] [place] [address] [phone] 07/31/2020 Nutrition Services Gastroenterology Melissa Omalley, RDN [address] [place] [id number] 09/03/2020 Imaging Radiology Health Maintenance Due Date [...] of this encounter Implants Implanted Type Area Code Official Device Identifier Shelf Expiration Date Model / Serial / Lot Microtech Sure Clip Implanted:Qty: 2 on 06/03/2020 by Janis Hatch DO at OR [facility] Clip N/A: Colon 04/21/2022 [facility]-F-26-2 35-C-R / / [id number] documented as of this encounter Visit Diagnoses Diagnosis Type 2 diabetes mellitus with hemoglobin A1c goal of less than 7.0% (HCC)- Primary documented in this encounter Advance Directives Documents on File Type Date Recorded Patient Tuck Pointer Expl anation Advanced Directive service a kerri [...]
--- OUTSIDE RECORDS SUMMARY | 2023-05-10 22:22 | External Medical Summary ---
Author Name Unknown Address Unknown Organization R:IT USE ONLY!!! Laboratory Report Ordering Provider Test Date Status STACY DEL TORO 06/03/2020 13:55:00 Final Observation Date Value Abnormality Reference (Units ) Status Glucose Point of Care 06/03/2020 14:00 199 Above high normal 70-120 (mg/dL) Final Performing Location IT USE ONLY!!!
--- OUTSIDE RECORDS SUMMARY | 2023-05-10 22:22 | External Medical Summary ---
Author Name Unknown Address [facility] [place] [address] Phone Organization K01:[place] [id number] Laboratory Report Ordering Provider Test Date Status AUGUST MCDUFFIEIOLONE 06/09/2020 17:29:00 Final Observation Date Value Abnormality Reference (Units ) Status Lactic Acid 06/09/2020 18:18 2.1 Above high normal 0.4 -2.0 (mmol/L) Final Performing Location [address] [address]
--- OUTSIDE RECORDS SUMMARY | 2023-05-10 22:22 | External Medical Summary | Summary of Care ---
Author Name Unknown Organization [facility] Address [place] [address] Care Team Providers Care Heat Reader Name Role Phone CarlosjoseAlexandra mcdonough Primary Care Provider [phone] Encounter Details Date Type Department Care Team Description 06/05/2020 [facility] [place] [address] Janis Hatch DO [address] [facility] [address] [phone] Allergies Active Allergy Reactions Severity Noted Date [...] 120 Vial 11 10/02/2019 Active nystatin (NYSTOP) 405937 UNIT/GM powder Apply topically to affected area [...] breakfast. 90 Cap 3 05/04/2020 Active PEG 8836-UYw-CvZec-Na Cl-NaSulf (GOLYTELY) 227.1 g PACK Drink 2 [...] SYSTM) MIS Freestyle Xochitl 2 14-day Sensor (299104) (2 sensors=28 day/1-month supply) 2 Each 1 05/26/2020 Active Additional Information Patient not taking. Reported on 06/03/2020 Continuous Blood Gluc Internet Sales Director (FREESTYLE XOCHITL 2 READER SYSTM) KORTNEY Freestyle Xochitl 2 14-day Internet Sales Director (309268) 1 Package 0 05/26/2020 Active Additional Information [...] pain 01/24/2012 01/17/2017 Genetic Sleep Disorder Research Other*[id number] 05/13/2011 04/07/2016 Obstructive sleep apnea 01/18/2011 12/27/19 [...] encounter Miscellaneous Notes * Telephone Encounter - Janis Hatch DO [...] Specialty Care Team Description 06/05/2020 Pharmacy Pharmacy [facility] [address] [place] [address] [phone] Type 2 diabetes mellitus with hemoglobin A1c goal of less than 7.0% ([facility])* 06/09/2020 Office Visit Wound Care Prakash Honeycutt PA-C [address] [place] [address] [phone] 06/09/2020 Office Visit Endocrinology Alberta Duque PA-C [address] [place], [place] [address] 06/10/2020 Office Visit Gynecology Obstetrics Marie Myrick MD [address] [place], [place] [address] 06/11/2020 Cardiac Studies Cardiac Studies Dobutamine [address] [place], [place] [address] 06/12/2020 Pharmacy Pharmacy [facility] [address] [place], [place] [address] 06/23/2020 Office Visit Gastroenterology [facility] Stout [facility] [address] [facility] [address] [phone] 06/30/2020 Office Visit Hematology Oncology Tono Sanchez MD [address] [place] [address] [phone] 07/01/2020 Office Visit Pharmacy [facility] [address] [place], [place] [address] 07/29/2020 Office Visit Family Medicine Rajwinder Carter DO [address] [place], [place] [address] 07/31/2020 Nutrition Services Gastroenterology Melissa Omalley RDN [address] [place] [address] [phone] 09/03/2020 Imaging Radiology Health Maintenance Due Date [...] this encounter Implants Implanted Type Area Steam Press Tender Device Identifier Shelf Expiration Date Model / Serial / Lot Microtech Sure Clip Implanted:Qty: 2 on 06/03/2020 by Janis Hatch DO at OR [facility] Clip N/A: Colon 04/21/2022 [facility] 35-C-R / / [id number] documented as of this encounter Advance Directives Documents on File Type Date Recorded Patient Folding Machine Feeder Expl anation Advanced Directive service a kerri [...] Name Relationship Healthcare Agent [facility] Communication Syed Juli Spouse Emergency Contact
--- OUTSIDE RECORDS SUMMARY | 2023-05-10 22:22 | External Medical Summary | Summary of Care ---
Author Name Unknown Organization [facility] Address [place] [address] Care Team Providers Care Marketing Automation Analyst Name Role Phone Alexandra Caceres Primary Care Provider Reason for Visit * Reason Onset Date Comments Other 06/05/2020 Encounter Details Date Type Department Care Team Description 06/05/2020 Tele[facility] [place] [address] Janis Hatch DO [address] [facility] [place] [address] [phone] Other Allergies Active Allergy Reactions Severity Noted [...] 120 Vial 11 10/02/2019 Active nystatin (NYSTOP) 107852 UNIT/GM powder Apply topically to affected area [...] breakfast. 90 Cap 3 05/04/2020 Active PEG [id number]-IkBgy-Na Cl-NaSulf (GOLYTELY) 227.1 g PACK Drink 2 [...] SYSTM) MIS Freestyle Xochitl 2 14-day Sensor (034947) (2 sensors=28 day/1-month supply) 2 Each 1 05/26/2020 Active Additional Information Patient not taking. Reported on 06/03/2020 Continuous Blood Gluc Scalp Specialist (FREESTYLE XOCHITL 2 READER SYSTM) KORTNEY Freestyle Xochitl 2 14-day Scalp Specialist (090677) 1 Package 0 05/26/2020 Active Additional Information [...] pain 01/24/2012 01/17/2017 Genetic Sleep Disorder Research Other*[id number] 05/13/2011 04/07/2016 Obstructive sleep apnea 01/18/2011 12/27/19 [...] encounter Miscellaneous Notes * Telephone Encounter - Sierra Vincent RN - 06/05/2020 2:24 PM EDT Called patient. Spoke to her and her spouse. They verbalize understanding and plan to last picker the liquid Carafate. Transferred to schedulers to schedule f/up endoscopy. * Telephone Encounter - Alexandra Caceres DO [...] Specialty Care Team Description 06/05/2020 Pharmacy Pharmacy [facility] [address] [place] [address] [phone] Type 2 diabetes mellitus with hemoglobin A1c goal of less than 7.0% ([facility])* 06/09/2020 Office Visit Wound Care Prakash Honeycutt PA-C [address], [place] [id number] 06/09/2020 Office Visit Endocrinology Alberta Duque PA-C [address], [place] [id number] 06/10/2020 Office Visit Gynecology Obstetrics LimavilleMarie MD [address] [place] [address] [phone] 06/11/2020 Cardiac Studies Cardiac Studies Dobutamine [address] [place] [address] 06/12/2020 Pharmacy Pharmacy [facility] [address] [place] [address] [phone] 06/23/2020 Office Visit Gastroenterology Lyssa Stout CRNP [address] [place] [address] [phone] 06/30/2020 Office Visit Hematology Oncology Tono Sanchez MD [address] [place] [address] [phone] 07/01/2020 Office Visit Pharmacy [facility] [address] [place] [address] [phone] 07/29/2020 Office Visit Family Medicine Rajwinder Carter [facility] [address] [facility] [address] 07/31/2020 Nutrition Services Gastroenterology Melissa Omalley, RDN [address] [place] [address] [phone] 09/03/2020 Imaging Radiology Health Maintenance Due Date [...] this encounter Implants Implanted Type Area Client Success Specialist Device Identifier Shelf Expiration Date Model / Serial / Lot Micro[employer] Sure Clip Implanted:Qty: 2 on 06/03/2020 by Janis Hatch DO at OR [facility] Clip N/A: Colon 04/21/2022 ROCC-F-26-2 35-C-R / / [id number] documented as of this encounter Advance Directives Documents on File Type Date 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
--- OUTSIDE RECORDS SUMMARY | 2023-05-10 22:22 | External Medical Summary ---
Author Name Unknown Address [address] [facility] [place] [address] Phone Organization K01:[facility] [address] [facility] [place] [address] Laboratory Report Ordering Provider Test Date Status AUGUST MCDUFFIEIOLONE 06/09/2020 17:29:00 Final Observation Date Value Abnormality Reference (Units ) Status BUN 06/09/2020 18:18 11 6-20 (mg/dL) Final Creatinine 06/09/2020 18:18 0.7 0.5-1.0 (mg/ dL) Final E Glom Filt Rate 06/09/2020 18:18 >60.0 >60 Final Performing Location [facility] [address] [facility] [place] [address]
--- OUTSIDE RECORDS SUMMARY | 2023-05-10 22:22 | External Medical Summary ---
Author Name Unknown Address [facility] [address] [place] [id number] Phone Organization K01:[place] [address] [address] [place] [id number] Laboratory Report Ordering Provider Test Date Status JAYESH MCDUFFIE 06/09/2020 19:12:00 Final Observation Date Value Abnormality Reference (Units) Status Source 06/09/2020 19:11 CATHETERIZED URINE Final Bacteria identified in Unspecified specimen by Culture 06/10/2020 15:37 LESS THAN 10,000 COLONIES/ML NORMAL MAYRA ONE COLONY TYPE Final REPORT STATUS 06/10/2020 15:37 06/10/2020 FINAL Final Performing Location [address] [address]
--- OUTSIDE RECORDS SUMMARY | 2023-05-10 22:22 | External Medical Summary | Summary of Care ---
Author Name Unknown Organization [place] [address] Care Team Providers Care General I Farmworker Name Role Phone CarlosjoseAlexandra mcdonough Primary Care Provider [phone] Reason for Visit * Reason Comments NEW PATIENT * Evaluate & Treat - Unlimited Visits (Within 10 days (routine)) Status Reason Specialty Diagnoses / Procedures Referred By Contact Referred To Contact Pending Review Specialty Services Required Wound Care Diagnoses Cellulitis of right toe Gloria Jeffers DO [address] [place] [address] Encounter Details Date Type Department Care Team Description 04/30/2020 Office Visit Wound Care, [place] [address] [place] [address] Prakash Honeycutt PA-C [address] [place] [address] [phone] Open wound of right great toe, subsequent encounter*; DM type 2 with diabetic peripheral neuropathy (HCC); Obesity, morbid (more than 100 lbs over ideal weight or BMI > 40) ([facility]) Allergies Active Allergy Reactions Severity Noted Date Comments Adhesive Tape Itching 04/29/2020 Penicillins Rash 02/12/2008 documented as of this encounter (statuses as of 06/09/2020) Medications Medication Sig Dispensed Refills Start Date End Date Status CENTRUM SILVER PO TABS 1 tab daily 1 Tab 0 2 Active vitamin c (ASCORBIC ACID) 500 MG Tablet Take 500 mg by mouth daily. 0 Active fluticasone (FLONASE) 50 MCG/ACT nasal sprayIndications :Sinus congestion INSTILL 2 SPRAYS INTO EACH NOSTRIL DAILY DIRECTED 16 g 5 9 Active albuterol sulfate (PROVENTIL) (2.5 MG/3ML) 0.083% nebulizer solutionIndicati ons:Pulmonary vascular congestion Inhale 1 Vial via nebulizer every 6 hours as needed for Wheezing. 120 Vial 11 0 Active nystatin (NYSTOP) 190636 UNIT/GM powder Apply topically to affected area 3 times a day. 60 g 1 0 Active Albuterol Sulfate (ALBUTEROL HFA) 108 (90 BASE) MCG/ACT inhalerIndicatio ns:Intermittent asthma with reliever use up to twice [...] per day. 100 Each 3 0 Active SM ASPIRIN ADULT LOW STRENGTH 81 MG TBEC TAKE 1 TABLET BY MOUTH ONCE DAILY 90 Tab 3 0 Active Dulaglutide (TRULICITY) 1.5 MG/0.5ML SOPNIndications: Type 2 diabetes mellitus with hemoglobin A1c goal of less than 7.0% ([facility]) Inject 1 syringeful once weekly 6 mL 1 0 Active atorvaSTATin (LIPITOR) 40 MG TabletIndication s:Dyslipidemia, goal LDL below 70 TAKE 1 TABLET BY MOUTH EVERY NIGHT AT BEDTIME 90 Tab 1 0 Active furosemide (LASIX) 20 MG TabletIndication s:Localized edema,Venous stasis dermatitis of both lower extremities TAKE 1 TABLET BY MOUTH ONCE DAILY NEEDED FOR EDEMA 30 Tab 5 0 Active levothyroxine (LEVOXYL) 200 MCG Tablet Take 1 Tab by mouth daily. 90 Tab 3 0 Active pantoprazole (PROTONIX) 20 MG TBECIndications: Gastroesophageal reflux disease, esophagitis presence not specified,NAFLD (nonalcoholic fatty liver disease),Other cirrhosis of liver (HCC) TAKE 2 TABLETS BY MOUTH ONCE DAILY 180 Tab 1 0 Active insulin glargine (LANTUS SOLOSTAR) 100 UNIT/ML SOPNIndications: Type 2 diabetes mellitus with hemoglobin A1c goal of less than 7.0% ([facility]) inject 24 units under the skin at bedtime 15 mL 5 0 Active Additional Information Patient taking differently: 30 Units, inject 30 units under the skin at bedtime, Reported on 04/14/2020 oxybutynin (DITROPAN) 5 MG Tablet TAKE 1 TABLET BY MOUTH TWICE DAILY 60 Tab 5 0 Active tamsulosin (FLOMAX) 0.4 MG Capsule TAKE 1 CAPSULE BY MOUTH ONCE DAILY 90 Cap 1 0 Active Semaglutide, 1 MG/DOSE, (OZEMPIC, 1 MG/DOSE,) 2 MG/1.5ML SOPN Inject 1 mg under the skin once a week. DX:E11.9 2 Pre-filled Pen Syringe Dosing Unit 5 0 05/26/20 20 Discontinued BD PEN NEEDLE MINI U/F 31G X 5 MMIndications:Ty pe 2 diabetes mellitus with hemoglobin A1c goal of less than 7.0% ([facility]) use with basaglar at bedtime 100 Each 10 0 05/20/20 20 Discontinued(Ref ill) gabapentin (NEURONTIN) 300 MG Capsule One pill in am, one midday, two in pm, 180 Cap 5 0 05/21/20 20 Discontinued nadolol (CORGARD) 20 MG Tablet Take 2 Tabs by mouth daily. 180 Tab 1 0 05/12/20 20 Discontinued ferrous sulfate (FEOSOL) 325 (65 FE) MG Tablet Take 1 Tab by mouth 2 times a day. 60 Tab 5 0 05/21/20 20 Discontinued(End of Procedure) potassium chloride ER 10 MEQ TBCRIndications: Hypokalemia TAKE 1 TABLET EVERY DAY WITH FOOD 90 Tab 1 0 05/25/20 20 Discontinued traZODone (DESYREL) 50 MG TabletIndication s:Sleep disturbances Take 1 Tab by mouth at bedtime. 90 Tab 1 0 05/21/20 20 Discontinued escitalopram (LEXAPRO) 20 MG TabletIndication s:Recurrent major depressive disorder, in partial remission (HCC) Take 1 Tab by mouth daily. 90 Tab 1 0 05/21/20 20 Discontinued MetFORMIN (GLUCOPHAGE) 1000 MG TabletIndication s:Type 2 diabetes mellitus with hemoglobin A1c goal of less than 7.0% (HCC) TAKE 1 TABLET BY MOUTH TWICE DAILY 180 Tab 1 0 05/05/20 20 Discontinued(Ref ill) linaCLOtide (LINZESS) 145 MCG Capsule Take 1 Cap by mouth daily before breakfast. 90 Cap 3 0 05/04/20 20 Discontinued cyclobenzaprine (FLEXERIL) 10 MG Tablet Take 1 Tab by mouth every night at bedtime. 30 Tab 0 0 05/21/20 20 Discontinued fluconazole (DIFLUCAN) 200 MG Tablet Take 2 Tabs by mouth daily. 10 Tab 0 0 05/07/20 20 Discontinued(End of Procedure) mupirocin calcium (BACTROBAN) 2 % ointment Apply topically to affected area 2 times a day. Apply to right toe affected area cover with dressing. 22 g 0 0 05/26/20 20 Discontinued silver sulfadiazine (SILVADENE) 1 % creamIndications :Open wound of right great toe, subsequent encounter Apply topically to affected area daily. Apply to wound daily with dressing 50 g 3 0 05/26/20 20 Discontinued Hospital, Clinic, or Other Facility Administered Medication Ordered Dose Route Frequency Start Date End Date Status silver sulfadiazine (SILVADENE) 1 % creamIndications:Open wound of right great toe, subsequent encounter TOP ONCE 04/30/2020 05/01/2020 Ende d documented as of this encounter (statuses as [...] pain 01/24/2012 01/17/2017 Genetic Sleep Disorder Research Other*[id number] 05/13/2011 04/07/2016 Obstructive sleep apnea 01/18/2011 12/27/19 [...] - - Temperature 36.2 C (97.2 F) 04/30/2020 3:40 PM ED T Respiratory Rate - - Oxygen Saturation - - Inhaled Oxygen Concentration - - Weight - - Height - - Body Mass Index - - documented in this encounter Functional Status Functional Status Response Date of Assess ment Are you deaf or do you have serious difficulty h earing? No 04/23/2020 Are you blind or do you have serious difficulty seeing, even when wearing glasses? No 04/23/2020 Do you have serious difficul ty walking or climbing stairs? 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 04/24/2020 Do you have difficulty dress ing or bathing? 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 04/23/2020 Because of a physical, menta l, or emotional condition, do you have difficulty doing errands alone such as visiting a doctor s office or shopping? (15 years old or older) Yes 04/23/20 20 Cognitive Status Response Date of Assessm ent Because of a physical, menta l, or emotional condition, do you have serious difficulty concentrating, remembering, or making decisions? (5 years old or older No 04/23/2020 documented as of this encounter Progress Notes * Prakash Honeycutt PA-C - 04/30/2020 3:42 PM EDT WOUND OUTPATIENT FOLLOW-UP NOTE Patient [...] great toe previously treated by podiatry at [facility], the R great toenail removed by her podiatristand she starteddeveloping purulent drainage from around the toenail bed and pad of the toe along with some blood. [place] [facility] 04[place]25[place]20 for R 1st toe infection and cellulitis. Wound was debrided inthe OR. Patient has been currently treating with Silvadene/DSD. Dressing change frequency: every day. No currently on abx. She is doing well today. She is wheelchair bound. She only uses her electric wheelchair to ambulate.Patient notes she has aids that comes in 5 days a week and her daughters who visit on the weekend to assist with daily dressing changes. Current dressing: See Wound Assessment Dressing change frequency: every day RLE Compression: ZAY wrap LLE Compression: none RLE Wt Bearing Offloading: none LLE Wt Bearing Offloading: none RLE Non-Wt Bearing Offloading: none LLE Non-Wt Bearing Offloading: none Offloading Surface for Bed: none Offloading Surface for Chair / Wheelchair: none ROS: Pain: moderate Drainage: mild serous Swelling: mild Erythema: no Fever/Chills: no Malaise: no ROS was negative other than stated above. Collection Date and Time: 04/10/2020 3:31 PM Collected By: UNSPECIFIED,DOCUMENT IMAGING SPECIALIST Received: 04/10/2020 3:32 PM CULTURE, WOUND, SUPERFICIAL, AEROBIC Order: [id number] Status: Final result Visible to patient: No (Inaccessible in Pt Portal) Next appt: 04/28/2020 at 03:40 PM in *Primary Care* (Rajwinder Carter DO) Dx: DM type 2 with diabetic peripheral ne... Ref Range & Units 7d ago Resulting Agency SPECIMEN DESCRIPTION SUPERFICIAL WOUND R GREAT TOE R CULTURE MULTIPLE SPECIES OF AEROBIC BACTERIA NO FURTHER WORKUP ROUTINELY PERFORMED ICR1 REPORT STATUS 04/13/2020 FINAL GMICR1 Specimen Collected: [...] Ulcer Anterior;Right;Dorsal;1st Toe Plantar (Active) Wound Image 04/30/20 1500 Secondary Dressing Present (removed today) GAUZE 04/30/20 1500 Tertiary Dressing Present (removed today) None 04/30/20 1500 Wound Length (cm) 2 cm 04/30/20 1500 Wound Width (cm) 2 cm 04/30/20 1500 Wound Depth (cm) 0.1 cm 04/30/20 1500 Drainage serous, mild 04/30/20 1500 Wound Surface Area (cm^2) 4 cm^2 04/30/20 1500 Wound Volume (cm^3) 0.4 cm^3 04/30/20 1500 Alteration in Skin Integrity Pressure Injury Left Heel (Active) Alteration in Skin Integrity Proximal;Right;Posterior Thigh (Active) ASSESSMENT/PLAN: 1.Ward Grade 2 diabetic ulcer of the R 1st toe w/localized infection and soft tissue necrosis, s/p D&I by Dr. Vazquez 04/16/20 - Healing well. 2. T2DM - well controlled. 3. Cirrhosis of the liver. 4. Cerebral Palsy. 5. Venous insufficiency. 6. Morbid Obesity. Continue Silvadene/DSD to R 1st toe - changed daily. 4in ZAY wrap from toe to ankle and 6in ZAY wrap from ankle to knee on RLE and elevation for edema control. Follow-up: 6 weeks F/U R 1st toe wound s/p debridement by Dr Vazquez 04/16/20. Healing well. Start Silvadene/DSD daily. Local care and edema control as above. Pt seen and examined by me. Agree with treatment and plan. Jefferson Rios MD 04/30/2020 4:02 PM documented in this encounter Nursing Notes * Gildardo Carrington, RN - 04/30/2020 4:00 PM EDT Silvadene impregnated gauze with a DSD placed over wound. Zay wraps applied for edema control. documented in this encounter Plan of Treatment Upcoming Encounters Date Type Specialty Care Team Description 0 Hospital Encounter Radiology Arrived 0 Office Visit Endocrinology Alberta Duque PA-C [address] [place] [address] 0 Office Visit Gynecology Obstetrics Marie Myrick MD [address], [place] [id number] 0 Cardiac Studies Cardiac Studies Dobutamine [address] [place] [facility] [address] 0 Pharmacy Pharmacy [address] [address] [phone] Office Visit Gastroenterology Lyssa Stout CRNP [address] [facility] [place] [address] [phone] Office Visit Hematology Oncology Tono Sanchez MD [address] [place] [address] [phone] 0 Office Visit Pharmacy [facility] [address] [place] [address] [phone] 0 Office Visit Wound Care Prakash Honeycutt, JEYSON [address] [place] [address] 0 Office Visit Gastroenterology Essence Chase PA-C [address] [facility] [place] [address] [phone] Office Visit Family Medicine Rajwinder Carter, DO [address] [place] [facility] [place] [address] [phone] Hospital Encounter Surgery Janis Hatch, [address] [place] [address] [phone] [facility] [place] [address] [phone] ESOPHAGOGASTRODUODENOSCOPY (EGD), FLEXIBLE, TRANSORAL, DIAGNOSTIC 0 Imaging [...] this encounter Implants Implanted Type Area Supervisor Customer Complaint Service Device Identifier Shelf Expiration Date Model / Serial / Lot [employer] Sure Clip Implanted:Qty: 2 on 06/03/2020 by Janis Hatch DO at OR 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
--- OUTSIDE RECORDS SUMMARY | 2023-05-10 22:23 | External Medical Summary | Summary of Care ---
Author Name Unknown Organization [place] [address] Care Team Providers Care Service Associate Name Role Phone JohnbrianRajwinder thacker Primary Care Provider [phone] Reason for Visit * Reason Comments Dosage Adjustment In Person (Anticoag Cl inic) Diabetes Education Encounter Details Date Type Department Care Team Description 06/01/2020 Office Visit Pharmacy, [place] [address] [place] [address] [facility] [address] [place] [address] [phone] Type 2 diabetes mellitus with hemoglobin A1c goal of less than 7.0% ([facility])* Allergies Active Allergy Reactions Severity Noted Date Comments Adhesive Tape Itching 04/29/2020 Penicillins Rash 02/12/2008 documented as of this encounter (statuses as of 06/01/2020) Medications Medication Sig Dispensed Refills Start Date [...] 120 Vial 11 10/02/2019 Active nystatin (NYSTOP) 554156 UNIT/GM powder Apply topically to affected area [...] breakfast. 90 Cap 3 05/04/2020 Active PEG 8671-WOg-QfNmj-Na Cl-NaSulf (GOLYTELY) 227.1 g PACK Drink 2 liters two days before colonoscopy and 2 liters the day before colonoscopy 1 Each 0 05/04/2020 Active Additional Information Patient not taking. Reported on 05/25/2020 MetFORMIN (GLUCOPHAGE) 1000 MG TabletIndications :Type 2 [...] SYSTM) MISC Freestyle Xochitl 2 14-day Sensor (330515) (2 sensors=28 day/1-month supply) 2 Each 1 05/26/2020 Active Continuous Blood Gluc Open Hearth Worker (FREESTYLE XOCHITL 2 READER SYSTM) KORTNEY Freestyle Xochitl 2 14-day Open Hearth Worker (387073) 1 Package 0 05/26/2020 Active famotidine (PEPCID) 20 MG Tablet Take 1 Tab by mouth every night at bedtime. 34 Tab 0 05/29/2020 Active ondansetron (ZOFRAN) 4 MG Tablet Take 1 Tab by mouth every 12 hours as needed for Nausea for up to 6 days. 6 Tab 0 05/29/2020 0 Active Insulin Aspart 100 UNIT/ML Subcutaneous Solution (NovoLOG) Inject 20 units under the skin before breakfast, 20 units before lunch, and 20 units before supper 60 mL 3 06/01/2020 Active insulin aspart (NOVOLOG) 100 UNIT/ML injection Inject 12 Units under the skin three times a day before meals. Plus cover meals with following sliding scale. 80-150 (0 units of insulin ); 151-200 (2 units); 201-250 (4 units); 251-300 (6 units); 1 Each 2 05/26/2020 0 Discontinued documented as of this encounter (statuses as of 06/01/2020) Active Problems Problem Noted Date Diabetic ulcer [...] as of this encounter (statuses as of 06/01/2020) Resolved Problems Problem Noted Date Resolved Date [...] pain 01/24/2012 01/17/2017 Genetic Sleep Disorder Research Other*[id number] 05/13/2011 04/07/2016 Obstructive sleep apnea 01/18/2011 12/27/19 [...] as of this encounter (statuses as of 06/01/2020) Immunizations Name Administration Dates Next Due HEP [...] this encounter Progress Notes * Indira Hudson, [facility] - 06/01/2020 8:03 AM EDT Medication Therapy Disease Management Diabetes History of Present Illness: Shaina Bustos is an 65 year old year old female who presents to the Med[facility] Management [facility] for an initial diabetes consult. Age of diabetes diagnosis: cannot recall Nature of diabetes diagnosis: incidental lab finding Clinical presentation at time of diagnosis: asymptomatic Family history of diabetes: sister Previous medication use: cannot recall History of hypoglycemia requiring assistance or hospitalization: no Microvascular complications: neuropathy Macrovascular complications: hypertension dyslipidemia Symptoms of hyperglycemia or hypoglycemia present today: NO Diet: patient eats 3 meals per day Breakfast: toast with butter Lunch: sandwich (turkey or ham) OR soup Dinner: tuna fish OR homecooked meal (meat and potatoe OR pasta) Snacks/Beverages: cookies, crackers; drinks soda Exercise: none; in wheelchair Current Diabetes Medications: Novolog, Inject 12 Units under the skin three times a day before meals. Plus cover meals with following sliding scale. 80-150 (0 units of insulin ); 151-200 (2 units); 201-250 (4 units); 251-300 (6 units)- 18 units before each meal Lantus pen, 24 units daily Metformin 1000mg, 1 tablet twice a day Trulicity 1.5mg SQ weekly GFR >60 as of 05/26/20 Self-Monitoring Blood Glucose Review: Patient currently tests blood glucose 4 time(s) daily Patient forgot to bring BG readings to appt Hypoglycemia: 1. Do you know what the symptoms of hypoglycemia are? Yes 2. How often can you tell by your symptoms if your blood sugar is low? Always 3. In a typical week, how many times will your blood sugar go below 70 mg/dL? Never Active Problem List Vascular Venous insufficiency Venous stasis dermatitis of both lower extremities Diabetic ulcer of right great toe (HCC) Orthopedics Spinal stenosis of lumbar region without neurogenic claudication DDD (degenerative disc disease), lumbar Primary osteoarthritis of right knee Generalized weakness History of Achilles tendon repair Fibromyalgia Achilles tendinitis, right leg Neurology Cerebral palsy ([facility]) Chronic pain syndrome DM type 2 with diabetic peripheral neuropathy ([facility]) Nephrology HTN, goal below 140/90 Head and neck Chronic rhinitis Gastrointestinal NG (nonalcoholic steatohepatitis) Obesity, morbid (more than 100 lbs over ideal weight or BMI > 40) (HCC) Cirrhosis of liver (HCC) Gastroesophageal reflux disease Pulmonary Intermittent asthma with reliever use up to twice per week Restrictive lung disease THAD on CPAP Hematology Lymphedema Pancytopenia (HCC) Anemia Thrombocytopenia (HCC) Iron deficiency anemia due to chronic blood loss Splenomegaly Endocrine Type 2 diabetes mellitus with hemoglobin A1c goal of less than 7.0% (HCC) Acquired hypothyroidism General Vitamin D deficiency MEDICATION USE AGREEMENT Wheelchair dependent Ambulatory dysfunction Insomnia Impaired mobility and ADLs DNR (do not resuscitate) Cardiac Dyslipidemia, goal LDL below 70 Genitourinary 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 Mental Health Recurrent major depressive disorder, in partial remission (HCC) Dermatology Cellulitis of right lower extremity Cellulitis of right toe Review of patient's allergies indicates: Allergen Reactions Adhesive Tape Itching Pcn [Penicillins] Rash Current Outpatient Medications Medication Sig Dispense Refill famotidine (PEPCID) 20 MG Tablet Take 1 Tab by mouth every night at bedtime. 34 Tab 0 ondansetron (ZOFRAN) 4 MG Tablet Take 1 Tab by mouth every 12 hours as needed for Nausea for up to 6 days. 6 Tab 0 Clindamycin HCl 300 MG Capsule Take 2 Caps by mouth 3 times a day. 40 Cap 0 Continuous Blood Gluc Open Hearth Worker (FREESTYLE XOCHITL 2 READER SYSTM) KORTNEY Freestyle Xochitl 2 14-day Open Hearth Worker (316340) 1 Package 0 Continuous Blood Gluc Sensor (FREESTYLE XOCHITL 2 SENSOR SYSTM) MISC Freestyle Xochitl 2 14-day Sensor (360629) (2 sensors=28 day/1-month supply) 2 Each 1 insulin aspart (NOVOLOG) 100 UNIT/ML injection Inject 12 Units under the skin three times a day before meals. Plus cover meals with following sliding scale. 80-150 (0 units of insulin ); 151-200 (2 units); 201-250 (4 units); 251-300 (6 units); 1 Each 2 silver sulfadiazine (SILVADENE) 1 % cream Apply topically to affected area daily. Apply to right great toe 50 g 0 potassium chloride ER 10 MEQ TBCR TAKE 1 TABLET BY MOUTH ONCE DAILY WITH FOOD 90 Tab 3 Insulin Pen Needle (BD PEN NEEDLE MINI U/F) 31G X 5 MM Use with lantus daily 100 Each 3 cyclobenzaprine (FLEXERIL) 10 MG Tablet TAKE [...] daily before breakfast. 90 Cap 3 PEG 7781-OZn-KtNmi-NaCl-NaSulf (GOLYTELY) 227.1 g PACK Drink 2 liters two days before colonoscopy and 2 liters the day before colonoscopy (Patient not taking: Reported on 05/25/2020) 1 Each 0 tamsulosin (FLOMAX) 0.4 MG Capsule TAKE 1 CAPSULE BY MOUTH ONCE DAILY 90 Cap 1 oxybutynin (DITROPAN) 5 MG Tablet TAKE 1 TABLET BY MOUTH TWICE DAILY 60 Tab 5 insulin glargine (LANTUS SOLOSTAR) 100 UNIT/ML SOPN inject 24 units under the skin at bedtime (Patient taking differently: 30 Units. inject 30 units under the skin at bedtime) 15 mL 5 pantoprazole (PROTONIX) 20 MG TBEC TAKE [...] EVERY NIGHT AT BEDTIME 90 Tab 1 Dulaglutide (TRULICITY) 1.5 MG/0.5ML SOPN Inject 1 syringeful once weekly 6 mL 1 SM ASPIRIN ADULT LOW STRENGTH 81 MG TBEC TAKE 1 TABLET BY MOUTH ONCE DAILY 90 Tab 3 Blood Glucose Monitoring Suppl [...] With spacer 16 g 1 nystatin (NYSTOP) 006141 UNIT/GM powder Apply topically to affected area [...] TABS 1 tab daily 1 Tab 0 Objective: The 10-year ASCVD risk score (Samiglenna BARAHONA Jr., et al., 2013) is: 8.2% Values used to calculate the score: Age: 65 years Sex: Female Is Non- : No Diabetic: Yes Tobacco smoker: No Systolic Blood Pressure: 110 mmHg Is BP treated: Yes HDL Cholesterol: 42 mg/dL Total Cholesterol: 101 mg/dL Estimated body mass index is 51.71 kg/m as calculated from the following: Height as of 05/25/20: 1.499 m (4' 11"). Weight as of 05/29/20: 116.1 kg (256 lb). BP Readings from Last 3 Encounters: 05/29/20 110/60 05/26/20 107/59 05/23/20 107/38 No POC components found HEMOGLOBIN, A1C(%) Lucio Dt/Tm Resulted Value Status 05/26/20 4:44A 05/26/20 11.0* FINAL 04/28/20 4:37P 04/28/20 9.9* FINAL 02/21/20 11:43A 02/21/20 6.7* FINAL MICROALBUMIN RATIO(mg/g creat) Lucio Dt/Tm Resulted Value Status 01/11/19 1:29P 01/11/19 <10 FINAL 02/03/17 [...] CALCIUM (mg/dL) 05/26/20 4:44A 05/26/20 8.7 F ALT(U/L) Lucio Dt/Tm Resulted Value Status 05/29/20 11:23A 05/29/20 25 FINAL LDL (DIRECT MEASURE)(mg/dL) Lucio Dt/Tm Resulted Value Status 02/21/20 11:43A 02/21/20 46 FINAL Assessment & Plan: Patient presents with . Lengthy discussion on diabetes pathophysiology, role of diet and macronutrients on blood glucose control and benefits of exercise. Discussed basal/bolus method of DM management and role current medications play at controlling BG. Also reviewed their MOA and AEs. Reviewed plate method and effect of certain foods on BG. Patient verbalized understanding. Patient having difficulty understanding concepts but grasped concepts well. They will contact clinic with any questions. Stressed compliance is very important and patient aware of this. Glycemic control is unstable and not at goal. Patient agreeable to adjust medications as noted below. Patient is now taking DM meds as directed. Compliant. Tolerating well. They have been taking Novolog and report BG have improved since started taking it. Patient's reports BG was 260 this mo rning. He has been checking BG but forgot to bring in readings. Readings no longer in high 300s butnot lower than 260 yet per patient. He reports he has been giving 18 units of Novolog (12 units fixed + 6 units SS) before each meal. Discussed changing from SS to fixed dose. A1C 11% (05/26/2020). Will change to Novolog 20 units before each meal. Reviewed rule of 15s and provided handout. Patient will continue to SMBG 4 times a day. Will call patient in 4 days to assess new dose. Discussed Freestyle Xochitl. Patient trying to obtain it. Will submit prior auth. Patient's sister-gray wears one and likes it. Patient will contact clinic for assistance with placement and to reviewthe device in more detail if approved. Patient is agreeable to SMBG 4 time(s) daily. Patient aware to contact clinic if any hypoglycemia before next visit. Reviewed rule of 15s. Diabetes Medications: INCREASE: Novolog, Inject 20 units under the skin three times a day before meals. Lantus pen, 24 units daily Metformin 1000mg, 1 tablet twice a day Trulicity 1.5mg SQ weekly GFR >60 as of 05/29/20 Diabetes Health Maintenance: up-to-date Return to clinic: 4 week(s); will call in 4 days Next Office Visit: 07/01/2020 Scheduled Provider(s): [facility] Indira Hudson RPh Clinical Pharmacist Medication Therapy Disease Management 06/01/2020, 8:03 AM documented in this encounter Plan of Treatment Upcoming Encounters Date Type Specialty Care Team Description 06/01/2020 Office Visit [facility] [address] [facility] [address] [phone] 06/03/2020 Hospital Encounter Surgery Janis Hatch, DO [address] [place] [address] [phone] 06/03/2020 Surgery Surgery Janis Hatch, DO [address] [place] [address] [phone] COLONOSCOPY FLEXIBLE PROXIMAL DIAGNOSTIC 06/05/2020 Pharmacy Pharmacy [facility] [address] [place] [address] [phone] 06/09/2020 Office Visit Wound Care Prakash Honeycutt PA-C [address], [place] [id number] 06/09/2020 Office Visit Endocrinology Alberta Duque PA-C [address], [place] [phone] 06/10/2020 Office Visit Gynecology Obstetrics WalkerMarie MD [address], [place] [phone] 06/23/2020 Office Visit Gastroenterology Lyssa Stout CRNP [address] [facility] [place] [address] [phone] 06/30/2020 Office Visit Hematology Oncology Tono Sanchez MD [address] [place] [address] [phone] 07/01/2020 Office Visit Pharmacy [facility] [address] [place] [address] [phone] 07/29/2020 Office Visit Family Medicine Rajwinder Carter DO [address] [place] [address] [phone] 07/31/2020 Nutrition Services Gastroenterology Melissa Omalley RDN [address] [place] [address] [phone] 09/03/2020 Imaging Radiology Health Maintenance Due Date Last Done Comments DIABETES-EYE EXAM 06/12/2019 06/12/2018, , 06/12/2018, Additional history exists PAP SMEAR-EVERY 3 YRS,AGES 21-65 10/10/2019 10/10/2016, 07/02/2014, 04/16/2013, Additional history exists DIABETES-URINE MICROALBUMIN EVERY 12 MONTHS 01/12/2020 01/11/2019, 08/24/2018, 07/19/2018, Additional history exists Influenza Vaccine (FLU shot) (#1) 2020 06/05/2019, 06/05/2019, 05/16/2018, Additional history exists DXA-SCREENING EVERY 7 YRS-USE [...] goal of less than 7.0% (HCC)- Primary Encounter for screening colonoscopy Special screening for malignant neoplasms, colon documented in this encounter Advance Directives Documents on File Type Date Recorded 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
--- OUTSIDE RECORDS SUMMARY | 2023-05-10 22:23 | External Medical Summary | Summary of Care ---
Author Name Unknown Organization [facility] Address [facility] [place] [address] Care Team Providers Care Manager Hardware Name Role Phone JohnbrianRajwinder thacker Primary Care Provider Reason for Visit * Reason Comments Pre Cert/Prior Auth Encounter Details Date Type Department Care Team Description 05/28/2020 Telephone Pharmacy, [place] [address] [place] [address] [facility] [address] [place] [address] [phone] Pre Cert/Prior Auth Allergies Active Allergy Reactions Severity Noted Date Comments Adhesive Tape Itching 04/29/2020 Penicillins Rash 02/12/2008 documented as of this encounter (statuses as of 05/29/2020) Medications Medication Sig Dispensed Refills Start Date [...] 120 Vial 11 10/02/2019 Active nystatin (NYSTOP) 830555 UNIT/GM powder Apply topically to affected area [...] the skin at bedtime, Reported on 04/14/2020 7:39 PM oxybutynin (DITROPAN) 5 MG Tablet TAKE 1 TABLET BY MOUTH TWICE DAILY 60 Tab 5 03/27/2020 Active tamsulosin (FLOMAX) 0.4 MG Capsule TAKE 1 CAPSULE BY MOUTH ONCE DAILY 90 Cap 1 04/22/2020 Active linaCLOtide (LINZESS) 290 MCG Capsule Take 1 Cap by mouth daily before breakfast. 90 Cap 3 05/04/2020 Active PEG 7883-FKq-DeWje-NaCl- NaSulf (GOLYTELY) 227.1 g PACK Drink 2 liters two days before colonoscopy and 2 liters the day before colonoscopy 1 Each 0 05/04/2020 Active Additional Information Patient not taking. Reported on 05/25/2020 7:59 PM MetFORMIN (GLUCOPHAGE) 1000 MG TabletIndications:Ty pe 2 [...] a day. 40 Cap 0 05/26/2020 Active insulin aspart (NOVOLOG) 100 UNIT/ML injection Inject 12 Units under the skin three times a day before meals. Plus cover meals with following sliding scale. 80-150 (0 units of insulin ); 151-200 (2 units); 201-250 (4 units); 251-300 (6 units); 1 Each 2 05/26/2020 Active silver sulfadiazine (SILVADENE) 1 % cream Apply topically to affected area daily. Apply to right great toe 50 g 0 05/26/2020 Active Continuous Blood Gluc Sensor (FREESTYLE XOCHITL 2 SENSOR SYSTM) MISC Freestyle Xochitl 2 14-day Sensor (028387) (2 sensors=28 day/1-month supply) 2 Each 1 05/26/2020 Active Continuous Blood Gluc Manager Cardiovascular (FREESTYLE XOCHITL 2 READER SYSTM) KORTNEY Freestyle Xochitl 2 14-day Manager Cardiovascular (550898) 1 Package 0 05/26/2020 Active documented as of this encounter (statuses as of 05/29/2020) Active Problems Problem Noted Date Diabetic ulcer [...] as of this encounter (statuses as of 05/29/2020) Resolved Problems Problem Noted Date Resolved Date [...] pain 01/24/2012 01/17/2017 Genetic Sleep Disorder Research Other*[id number] 05/13/2011 04/07/2016 Obstructive sleep apnea 01/18/2011 12/27/19 [...] as of this encounter (statuses as of 05/29/2020) Immunizations Name Administration Dates Next Due HEP [...] file Not on file Not on file Travel History Travel Start Travel End COVID-19 Exposure Response Date Recorded In the [...] Telephone Encounter - Indira Hudson RPh - 05/29/2020 5:16 PM EDT Called and spoke with [facility] pharmacy who confirmed Xochitl does not require Prio auth under primary but does under secondary. She provided the following information for [facility]: Phone # Patient is cardholder: GRP: [id number] BIN: [id number] PCN: [id number] ID: [id number] Will work on for patient. Indira Hudson [facility], Pharm D, BCACP Clinical Pharmacist 05/29/20 5:16 PM * Telephone Encounter - Loren Cristina OSA - 05/28/2020 3:39 PM EDT Patient Phone Numbers Patient calling in stating prior auth is needed for Xochitl. Please call patient with questions. documented in this encounter Plan of Treatment Upcoming Encounters Date Type Specialty Care Team Description 06/01/2020 Office Visit Pharmacy Artem[facility] Candeal[facility] [address] [address] [phone] 06/01/2020 Office Visit Family Medicine Alexandra Caceres, DO [address] [place] [address] [phone] 06/03/2020 Hospital Encounter Surgery Janis Hatch, DO [address] [place] [address] [phone] 06/03/2020 Surgery Surgery Janis Hatch, DO [address] [place] [address] [phone] COLONOSCOPY FLEXIBLE PROXIMAL DIAGNOSTIC 06/09/2020 Office Visit Wound Care Prakash Honeycutt PA-C [address] [place], [place] [phone] 06/09/2020 Office Visit Endocrinology Alberta Duque PA-C [address] [place], [place] [phone] 06/10/2020 Office Visit Gynecology Obstetrics MccombMarie MD [address] [place] [address] 06/23/2020 Office Visit Gastroenterology Lyssa Stout, ZAK [address] [place] [address] [phone] 06/30/2020 Office Visit Hematology Oncology Tono Sanchez MD [address] [place] [address] [phone] 07/29/2020 Office Visit Family Medicine Rajwinder Carter, DO [address] [place] [address] [phone] 07/31/2020 Nutrition Services Gastroenterology Melissa Omalley RDN [address] [place] [address] [phone] 09/03/2020 Imaging Radiology Health Maintenance Due Date [...] on File Type Date Recorded 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
--- OUTSIDE RECORDS SUMMARY | 2023-05-10 22:23 | External Medical Summary | Summary of Care ---
Author Name Unknown Organization [facility] Address [facility] [place] [address] Care Team Providers Care Chef De Cuisine Name Role Phone Rajwinder Carter DO Primary Care Provider Reason for Visit * Reason Comments Advice Blood Sugar 406 Encounter Details Date Type Department Care Team Description 05/28/2020 Telephone [facility] [address], [place] [id number] Rajwinder Carter DO [address], [place] [phone] Advice (Blood Sugar 406) Allergies Active Allergy Reactions Severity Noted Date [...] 120 Vial 11 10/02/2019 Active nystatin (NYSTOP) 618024 UNIT/GM powder Apply topically to affected area [...] breakfast. 90 Cap 3 05/04/2020 Active PEG 6271-RXr-CpZcb-NaCl- NaSulf (GOLYTELY) 227.1 g PACK Drink 2 [...] SYSTM) MISC Freestyle Xochitl 2 14-day Sensor (756278) (2 sensors=28 day/1-month supply) 2 Each 1 05/26/2020 Active Continuous Blood Gluc Slitter Helper (FREESTYLE XOCHITL 2 READER SYSTM) KORTNEY Freestyle Xochitl 2 14-day Slitter Helper (321730) 1 Package 0 05/26/2020 Active documented as [...] pain 01/24/2012 01/17/2017 Genetic Sleep Disorder Research Other*[id number] 05/13/2011 04/07/2016 Obstructive sleep apnea 01/18/2011 12/27/19 [...] Telephone Encounter - Jovana Lambert RN - 05/29/2020 9:32 AM EDT Called Home and a Female Named Mariely said patient is not home and she does not know where she went Patient does have an appointment to day for Cardiac Dobutamine Test I asked Mariely to tell patient to call back with BS and update Called Cell No Voice mail set up Unable to leave a message * Telephone Encounter - Jovana Lambert RN - 05/28/2020 7:56 PM EDT The patient is aware, and verbalizes an understanding. 5 units of Novolog NOT Lantus per Dr Carter * Telephone Encounter - Rajwinder Carter DO - 05/28/2020 7:49 PM EDT I would advise another 5 units of lantus and recheck her sugar in 1 hr. It is coming down which is good. She should increase her fluid intake. We will check in AM. If she worsens in meantime, ED. * Telephone Encounter - Jovana Lambert RN - 05/28/2020 7:45 PM EDT Spoke to patient Now BS 336 now Still Dizzy Feels like she Would fall down if she could stand up Nausea Now No vomiting Can you advise * Telephone Encounter - Jovana Lambert RN - 05/28/2020 7:42 PM EDT Called patient patient answered then unable to hear patient * Telephone Encounter - Dulce Call OSA - 05/28/2020 6:20 PM EDT Received call , talk to pt. sd She did Get Call But mist It ?Spoke To nurse Natalie had called Pt- no answer. Natalie giving shots etc With pt right now. Will call pt back as soon as done , pt aware sdwill wait for call. Nurse advised Me to tell pt do what she feels necessary * Telephone Encounter - Shannan Bowser OSA - 05/28/2020 6:03 PM EDT Reason for patient's call: Sugar high, 360, dizziness Caller was transferred to [facility] at the nurse line. * Telephone Encounter - Shahnaz Starr LPN - 05/28/2020 5:56 PM EDT Patient was trying to contact [place] office to return their call and was transferred here. Patient was given the [place] office number to call. * Telephone Encounter - Jovana Lambert RN - 05/28/2020 5:43 PM EDT Called Mobile Mail box full unable to leave a message * Telephone Encounter - Rajwinder Carter DO - 05/28/2020 5:27 PM EDT Pt was supposed to warp picker insulin upon her discharge on 05/26 and did not do so until today. I would, therefore, expect her sugars to be high. Please call back and ask that she take her sugar again and see what it is now that she has had insulin. * Telephone Encounter - Vivian Izquierdo LPN - 05/28/2020 4:47 PM EDT Pt calling due to BS being 406 at 4:30. Pt is not feeling good. She has nausea, and very thirsty. Pt just took novolog 18 units. Called office spoke Pura advised to send message [phone] * Telephone Encounter - Quyen Starks OSA - 05/28/2020 4:42 PM EDT Reason for patient's call: Blood Sugar 406 Caller was transferred to [facility] at the nurse line. documented in this encounter Plan of Treatment Upcoming Encounters Date Type Specialty Care Team Description 05/29/2020 Cardiac Studies Cardiac Studies Dobutamine [address] [place] [address] 06/01/2020 Office Visit Pharmacy [facility] [address], [place] [phone] 06/01/2020 Office Visit Family Medicine Alexandra Caceres DO [address] [place] [address] [phone] 06/03/2020 Hospital Encounter Surgery Janis Hatch, DO [address] [facility] [place] [address] [phone] 06/03/2020 Surgery Surgery Janis Hatch, DO [address] [facility] [place] [address] [phone] COLONOSCOPY FLEXIBLE PROXIMAL DIAGNOSTIC 06/09/2020 Office Visit Wound Care Prakash Honeycutt PA-C [address], [place] [phone] 06/09/2020 Office Visit Endocrinology Alberta Duque PA-C [address] [place] [facility] [place] [address] 06/10/2020 Office Visit Gynecology Obstetrics ColomeMarie MD [address] [place] [address] 06/23/2020 Office Visit Gastroenterology Lyssa Stout CRNP [address] [place] [address] [phone] 06/30/2020 Office Visit Hematology Oncology Tono Sanchez MD [address] [facility] [address] [phone] 07/29/2020 Office Visit Family Medicine Rajwinder Carter DO [address] [place] [address] 07/31/2020 Nutrition Services Gastroenterology Melissa Omalley, RDN [address] [place] [address] [phone] 09/03/2020 Imaging Radiology Health Maintenance Due Date [...] Documents on File Type Date Recorded 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
--- OUTSIDE RECORDS SUMMARY | 2023-05-10 22:23 | External Medical Summary | Summary of Care ---
Author Name Unknown Organization [place] [address] Care Team Providers Care Resident Service Coordinator Name Role Phone Alexandra Mane DO Primary Care Provider [phone] Reason for Referral * Ancillary Services (Within 10 days (routine)) Status Reason Specialty Diagnoses / Procedures Referred By Contact Referred To Contact Pending Review Ancillary Services Required Gastroenterology Diagnoses Esophageal dysphagia Alexandra Mane DO [address] [place] [address] Encounter Details Date Type Department Care Team Description 06/01/2020 Telephone [facility] [address] [place] [address] Alexandra Mane DO [address], [place] [address] Allergies Active Allergy Reactions Severity Noted Date [...] 120 Vial 11 10/02/2019 Active nystatin (NYSTOP) 954365 UNIT/GM powder Apply topically to affected area [...] breakfast. 90 Cap 3 05/04/2020 Active PEG 8454-FXo-StHid-NaCl -NaSulf (GOLYTELY) 227.1 g PACK Drink 2 [...] SYSTM) MISC Freestyle Xochitl 2 14-day Sensor (989392) (2 sensors=28 day/1-month supply) 2 Each 1 05/26/2020 Active Continuous Blood Gluc Archaeology Professor (FREESTYLE XOCHITL 2 READER SYSTM) KORTNEY Freestyle Xochitl 2 14-day Archaeology Professor (805463) 1 Package 0 05/26/2020 Active famotidine (PEPCID) [...] pain 01/24/2012 01/17/2017 Genetic Sleep Disorder Research Other*[id number] 05/13/2011 04/07/2016 Obstructive sleep apnea 01/18/2011 12/27/19 [...] 9:04 AM EDT Pt is schedule at [facility] OR. Forwarded to [facility]. * Telephone Encounter - Alexandra Mane DO [...] up. She is scheduled with you at [place] for colonoscopy, can she get EGD as [...] Janis Hatch DO [address] [place] [address] [phone] 06/03/2020 Surgery Surgery Janis Hatch DO [address] [place] [address] [phone] COLONOSCOPY FLEXIBLE PROXIMAL DIAGNOSTIC 06/05/2020 Pharmacy Pharmacy [address] [id number] 06/09/2020 Office Visit Wound Care Prakash Honeycutt PA-C [address] [place], [place] [address] 06/09/2020 Office Visit Endocrinology Alberta Duque PA-C [address] [place], [place] [phone] 06/10/2020 Office Visit Gynecology Obstetrics Marie Myrick MD [address] [place] [address] 06/23/2020 Office Visit Gastroenterology Lyssa Stout CRNP [address] [place] [address] [phone] 06/30/2020 Office Visit Hematology Oncology Tono Sanchez MD [address] [place] [address] [phone] 07/01/2020 Office Visit Pharmacy [facility] [address] [place] [address] 07/29/2020 Office Visit Family Medicine Rajwinder Carter DO [address], [place] [address] 07/31/2020 Nutrition Services Gastroenterology Melissa Omalley, [place] [address] [place] [address] 09/03/2020 Imaging Radiology Scheduled Referrals Name Type [...] Documents on File Type Date Recorded 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
--- OUTSIDE RECORDS SUMMARY | 2023-05-10 22:23 | External Medical Summary | Summary of Care ---
Author Name Unknown Organization [place] [address] Care Team Providers Care Manager Recruiting Name Role Phone Alexandra Caceres Primary Care Provider [phone] Reason for Visit * Reason Onset Date Comments Hospital Follow-Up 05/27/2020 Encounter Details Date Type Department Care Team Description 05/27/2020 Telephone Ancillary Department, [address] [address] Rosio Hunter RN Hospital Follow-Up [...] 120 Vial 11 10/02/2019 Active nystatin (NYSTOP) 717805 UNIT/GM powder Apply topically to affected area [...] breakfast. 90 Cap 3 05/04/2020 Active PEG 6982-HLo-GbKls-NaCl- NaSulf (GOLYTELY) 227.1 g PACK Drink 2 [...] Gluc Sensor (FREESTYLE XOCHITL 2 SENSOR SYSTM) [facility] Freestyle Xochitl 2 14-day Sensor (095252) (2 sensors=28 day/1-month supply) 2 Each 1 05/26/2020 Active Continuous Blood Gluc Lacing Presser (Revision3STYLE XOCHITL 2 READER SYSTM) KORTNEY Freestyle Xochitl 2 14-day Lacing Presser (660830) 1 Package 0 05/26/2020 Active documented as of this encounter (statuses as of 06/01/2020) Active Problems Problem Noted Date Diabetic ulcer of right great toe 2019 Cellulitis of right toe 04/18/2020 Cellulitis of right lower extremity 08/01/2020 Iron deficiency anemia due to chronic bl [...] pain 01/24/2012 01/17/2017 Genetic Sleep Disorder Research Other*[id number] 05/13/2011 04/07/2016 Obstructive sleep apnea 01/18/2011 12/27/19 [...] visit for follow up: [place] Admitted to: [facility] Date: 05/25/2020 Discharged to: [...] Chest Pain 2. Sob 3. Foot Pain Supervisor Bridges And BuildingsManager Rehab of Care interventions/Action Plan: 5 - 7 [...] Team Description 06/03/2020 Hospital Encounter Surgery Janis Hatch, DO [address] [place] [address] [phone] 06/03/2020 Surgery Surgery Janis Hatch, DO [address] [place] [address] [phone] COLONOSCOPY FLEXIBLE PROXIMAL DIAGNOSTIC 06/05/2020 Pharmacy Pharmacy [address] [address] [phone] 06/09/2020 Office Visit Wound Care Prakash Honeycutt PA-C [address] [place], [place] [phone] 06/09/2020 Office Visit Endocrinology Alberta Duque PA-C [address] [place] [address] 06/10/2020 Office Visit Gynecology Obstetrics Marie Myrick MD [address] [place] [address] 06/23/2020 Office Visit Gastroenterology Lyssa Stout, ZAK [address] [facility] [place] [address] [phone] 06/30/2020 Office Visit Hematology Oncology Tono Sanchez MD [address] [facility] [place] [address] [phone] 07/01/2020 Office Visit Pharmacy [facility] [address] [place] [address] 07/29/2020 Office Visit Family Medicine Rajwinder Carter DO [address] [place] [address] 07/31/2020 Nutrition Services Gastroenterology Melissa Omalley, [place] [address] [place] [id number] 09/03/2020 Imaging Radiology Health Maintenance Due Date [...] on File Type Date Recorded Patient Residential Treatment Specialist Expl anation Advanced Directive service a [...]
--- OUTSIDE RECORDS SUMMARY | 2023-05-10 22:23 | External Medical Summary ---
Author Name Unknown Address [facility] [place] [address] Phone Organization K01:[place] [id number] Laboratory Report Ordering Provider Test Date Status OUSMANE BACK 05/29/2020 13:28:00 Final Observation Date Value Abnormality Reference (Units ) Status Troponin T 05/29/2020 14:11 9 0-14 (ng/L) Final Performing Location [address] [address]
--- OUTSIDE RECORDS SUMMARY | 2023-05-10 22:23 | External Medical Summary | Summary of Care ---
Author Name Unknown Organization [place] [address] Care Team Providers Care Engineering Patternmaker Name Role Phone Alexandra Caceres Primary Care Provider [phone] Reason for Visit * Reason Onset Date Comments Pre Cert/Prior Auth 05/28/2020 Encounter Details Date Type Department Care Team Description 05/28/2020 Telephone Pharmacy, [place] [address] [place] [address] [facility] [address] [place] [address] [phone] Pre Cert/Prior Auth Allergies Active Allergy Reactions [...] 120 Vial 11 10/02/2019 Active nystatin (NYSTOP) 504344 UNIT/GM powder Apply topically to affected area [...] breakfast. 90 Cap 3 05/04/2020 Active PEG 6251-UEt-PmAoj-Na Cl-NaSulf (GOLYTELY) 227.1 g PACK Drink 2 [...] SYSTM) MISC Freestyle Xochitl 2 14-day Sensor (944377) (2 sensors=28 day/1-month supply) 2 Each 1 05/26/2020 Active Continuous Blood Gluc Bed Laborer (FREESTYLE XOCHITL 2 READER SYSTM) KORTNEY Freestyle Xochitl 2 14-day Bed Laborer (027853) 1 Package 0 05/26/2020 Active insulin aspart (NOVOLOG) 100 [...] pain 01/24/2012 01/17/2017 Genetic Sleep Disorder Research Other*[id number] 05/13/2011 04/07/2016 Obstructive sleep apnea 01/18/2011 12/27/19 [...] Telephone Encounter - Indira Hudson RP - 06/01/2020 4:48 PM EDT Prior auth submitted for Kymab 2 reader and sensors via [facility] [employer]. Indira Hudson RPh, Pharm D, FABIENNECP Clinical Pharmacist 06/01/20 4:48 PM * Telephone Encounter - Indira Hudson RPh - 05/29/2020 5:16 PM EDT Called and spoke with [facility] pharmacy who confirmed Xochitl does not require Prio auth under primary but does under secondary. She provided the following information for [employer]: Phone # Patient is cardholder: GRP: [id number] BIN: [id number] PCN: [id number] ID: [id number] Will work on for patient. Indira Hudson RPh, Pharm D, FABIENNECP Clinical Pharmacist 05/29/20 5:16 PM * Telephone Encounter - Loren Cristina OSA - 05/28/2020 3:39 PM EDT Patient Phone Numbers Patient calling in stating prior auth is needed for Xochitl. Please call patient with questions. documented in this encounter Plan of Treatment Upcoming Encounters Date Type Specialty Care Team Description 06/03/2020 Hospital Encounter Surgery Janis Hatch, DO [address] [place] [address] [phone] 06/03/2020 Surgery Surgery Janis Hatch, DO [address] [place] [address] [phone] COLONOSCOPY FLEXIBLE PROXIMAL DIAGNOSTIC 06/05/2020 Pharmacy Pharmacy [address] [address] [phone] 06/09/2020 Office Visit Wound Care Prakash Honeycutt PA-C [address] [place] [address] [phone] 06/09/2020 Office Visit Endocrinology Alberta Duque PA-C [address] [place], [place] [address] 06/10/2020 Office Visit Gynecology Obstetrics Penn RunMarie MD [address] [place] [address] [phone] 06/23/2020 Office Visit Gastroenterology Lyssa Stout CRNP [address] [place] [address] [phone] 06/30/2020 Office Visit Hematology Oncology Tono Sanchez MD [address] [place] [address], [place] [address] [phone] 07/01/2020 Office Visit Pharmacy [address] [phone] 07/29/2020 Office Visit Family Medicine [facility]winder Carter [facility] [address] [facility] [address] 07/31/2020 Nutrition Services Gastroenterology Melissa Omalley, RDN [address] [place] [address] [phone] 09/03/2020 Imaging Radiology Health Maintenance Due Date [...] Documents on File Type Date Recorded 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
--- OUTSIDE RECORDS SUMMARY | 2023-05-10 22:23 | External Medical Summary | Summary of Care ---
Author Name Unknown Organization [place] [address] Care Team Providers Care Maturity Checker Name Role Phone Alexandra Mane DO Primary Care Provider [phone] Reason for Referral * Ancillary Services (Within 10 days (routine)) Status Reason Specialty Diagnoses / Procedures Referred By Contact Referred To Contact Pending Review Ancillary Services Required Gastroenterology Diagnoses Esophageal dysphagia Alexandra Mane DO [address] [place] [address] Encounter Details Date Type Department Care Team Description 06/01/2020 Telephone [facility] [address] [place] [address] Alexandra Mane DO [address], [place] [phone] Allergies Active Allergy Reactions Severity Noted Date [...] 120 Vial 11 10/02/2019 Active nystatin (NYSTOP) 790401 UNIT/GM powder Apply topically to affected area [...] breakfast. 90 Cap 3 05/04/2020 Active PEG 3262-HAr-NpGof-NaCl -NaSulf (GOLYTELY) 227.1 g PACK Drink 2 [...] SYSTM) MISC Freestyle Xochitl 2 14-day Sensor (136384) (2 sensors=28 day/1-month supply) 2 Each 1 05/26/2020 Active Continuous Blood Gluc Drug Room Operator (FREESTYLE XOCHITL 2 READER SYSTM) [place] Freestyle Xochitl 2 14-day Drug Room Operator (578295) 1 Package 0 05/26/2020 Active famotidine (PEPCID) [...] weakness 04/04/2019 Pancytopenia 02/21/2019 Wheelchair dependent 12/21/2018 HTAD on CPAP 12/26/2017 [...] pain 01/24/2012 01/17/2017 Genetic Sleep Disorder Research Other*[id number] 05/13/2011 04/07/2016 Obstructive sleep apnea 01/18/2011 12/27/19 [...] Miscellaneous Notes * Telephone Encounter - Alexandra Mane DO [...] seeing Shaina today, she typically sees Rajwinder Bellkirstie, but she is out and I am covering for her. She is here today for ongoing atypical chest pain, worse after eating and intermittent nausea. She was in the ER on Monday night, negative cardiac and pulmonary work up. She is scheduled with you at [place] for colonoscopy, can she get EGD as [...] Description 06/03/2020 Hospital Encounter Surgery Janis Hatch, [address] [facility] [place] [address] [phone] 06/03/2020 Surgery Surgery Janis Hatch, [address] [facility] [place] [address] [phone] COLONOSCOPY FLEXIBLE PROXIMAL DIAGNOSTIC 06/05/2020 Pharmacy Pharmacy [address] [id number] 06/09/2020 Office Visit Wound Care Prakash Honeycutt PA-C [address] [place] [address] 06/09/2020 Office Visit Endocrinology Alberta Duque PA-C [address] [place] [address] 06/10/2020 Office Visit Gynecology Obstetrics Marie Myrick MD [address] [place] [address] 06/23/2020 Office Visit [facility]astroenterology [facility] [address] 06/30/2020 Office Visit Hematology Oncology Tono Sanchez MD [address] [place] [address] [phone] 07/01/2020 Office Visit Pharmacy [facility] [address] [place] [address] 07/29/2020 Office Visit Family Medicine Rajwinder Carter DO [address] [place] [address] 07/31/2020 Nutrition Services Gastroenterology Melissa Omalley, [place] [address] [facility] [place] [address] 09/03/2020 Imaging Radiology Scheduled Referrals Name [...] history exists DXA-SCREENING EVERY 7 YRS-USE SMARTSET# 8099 TO ORDER 2020 Pneumococcal Vaccine: 65+ Years [...] Documents on File Type Date Recorded Patient Station Examiner Expl anation Advanced Directive service a [...]
--- OUTSIDE RECORDS SUMMARY | 2023-05-10 22:23 | External Medical Summary | Summary of Care ---
Author Name Unknown Organization [place] [address] Care Team Providers Care Milieu Coordinator Name Role Phone Alexandra Caceres DO Primary Care Provider [phone] Reason for Visit * Reason Onset Date Comments Hospital Follow-Up Medication Administration 06/01/2020 Flu an d/or Pneumo Inj Encounter Details Date Type Department Care Team Description 06/01/2020 Office Visit [facility] [address] [place] [address] Alexandra Caceres DO [address], [place] [id number] Right upper quadrant pain*; Risk and functional assessment; Need for prophylactic vaccination and inoculation against influenza; Type 2 diabetes mellitus with hemoglobin A1c goal of less than 7.0% (HCC); Cirrhosis of liver without ascites, unspecified hepatic cirrhosis type (HCC); Cellulitis of right lower extremity; Atypical chest pain Allergies Active Allergy Reactions [...] 120 Vial 11 10/02/2019 Active nystatin (NYSTOP) 286287 UNIT/GM powder Apply topically to affected area [...] ([facility]) Inject 1 syringeful once weekly 6 mL [...] breakfast. 90 Cap 3 05/04/2020 Active PEG 0048-TJn-YfLdl-NaCl -NaSulf (GOLYTELY) 227.1 g PACK Drink 2 [...] SYSTM) MISC Freestyle Xochitl 2 14-day Sensor ([id number]) (2 sensors=28 day/1-month supply) 2 Each 1 05/26/2020 Active Continuous Blood Gluc Film Reader (FREESTYLE XOCHITL 2 READER SYSTM) KORTNEY Freestyle Xochitl 2 14-day Film Reader (547693) 1 Package 0 05/26/2020 Active famotidine (PEPCID) [...] pain 01/24/2012 01/17/2017 Genetic Sleep Disorder Research Other*[id number] 05/13/2011 04/07/2016 Obstructive sleep apnea 01/18/2011 12/27/19 [...] Sign Reading Time Taken Comments Blood Pressure 110/74 06/01/2020 11:29 AM EDT Pulse 64 06/01/2020 11:29 AM EDT Temperature 36.8 C (98.2 F) 06/01/2020 11:29 AM E DT Respiratory Rate 20 06/01/2020 11:29 AM EDT Oxygen Saturation - - Inhaled [...] this encounter Patient Instructions * Patient Instructions* Michaelle Lindquist LPN - 06/01/2020 11:26 AM EDT Patient Instructions - Fall Prevention (This [...] that mean climbing, even on a stepstool. Simin Patient Education Copyright 2008 - 2010 Simin except where otherwise noted. Urinary Incontinence Plan [...] Wear support stockings (TEDs)if you have edema Michaelle Lindquist LPN 06/01/2020 Kegel Exercises Kegel exercises dont require special [...] Simin Patient Education Copyright 2009 - 2010 Smiin except where otherwise noted. Here are some [...] please feel free to contact our office. Patient Instructions - Fall Prevention (This education [...] side, hold the cane on that side. 63. Get your balance. 64. Move the cane and your weaker leg forward. 65. Support your weight on both the cane and your weaker side. 66. Step with your stronger leg. 67. Start again from step 1. If youre using a folding walker, be sure you know how to lock it open. Check that its locked open before each use. Using a Walker 21. Roll the walker (or lift it, if youre using one without wheels) forward about 12 inches. 22. Step forward with your weaker leg first. 23. Use the walker to help keep your balance. 24. Bring your other foot forward to the center of the walker. 25. Start again from step 1. Helpful Tips [...] that mean climbing, even on a stepstool. Simin Patient Education Copyright 2008 - 2010 Simin except where otherwise noted. Urinary Incontinence Plan [...] Wear support stockings (TEDs)if you have edema Michaelle Lindquist LPN 06/01/2020 Kegel Exercises Kegel exercises dont require special [...] please feel free to contact our office. ~~PATIENT INSTRUCTIONS FOR FLU SHOT~~ Possible side effects of influenza vaccine, (flu shot), are usually mild and include: 1. Soreness or redness at injection site 2. Low grade fever 3. Body aches You may use Tylenol/Acetaminophen as needed for these symptoms. LET YOUR DOCTOR KNOW IMMEDIATELY IF YOU HAVE DIFFICULTY BREATHING OR SWALLOWING, EXPERIENCE ITCHINGOF FEET OR HANDS, HAVE SWELLING OF EYES, FACE OR INSIDE OF NOSE. documented in this encounter Progress Notes * Alexandra Caceres, - 06/01/2020 11:47 AM EDT Subjective: Shaina Bustos is a 65 year old female. Chief Complaint Patient presents with Hospital Follow-Up HPI: 65 year old female here today for an ER follow-up. I have not seen her before. She has complicated medical hx of Cirrhosis of the liver, NG, Type 2 diabetes, severe obesity, GERD, portal Hypertension. She was in the ER in [place] on Monday night for right sided chest pain, and shortness of breath. She had EKG, and CT scan of her chest. She did not have PE, her EKG had no acute changes. She was scheduled to have a stress test that day, but did not go to the testing due to being in the ER. She follows with GI. She has colonoscopy scheduled for this week in [place]. I did ask her and her about medications, but they were not sure of all the medications She did state that she is taking an antibiotic for cellulitis of her R foot. This is clindamycin. Today her biggest complaint is the pain in the R side of the chest. She states at night her pain isfine, but during the day when she is moving around the pain is always there. At times feels like eating makes the pain worse. Trouble swallowing her pills. She did have EGD in November that showed gastritis. She believes that she is taking her protonix. She is on pepcid as well. Was using zofran as needed. From her chart she was on Carafate in the past, but not sure why she stopped taking this. In reviewing her chart she did have US of her gallbladder toward the end of April and this was normal. Had CT scan and showed liver cirrhosis. She is on Nadolol for portal hypertension. PHM: Patient Active Problem List Diagnosis Code Venous insufficiency I87.2 Spinal stenosis of lumbar region without neurogenic claudication M48.061 Cerebral palsy ([facility]) G80.9 HTN, goal below 140/90 I10 [...] 7.0% ([facility]) E11.9 Vitamin D deficiency E55.9 Restrictive lung disease J98.4 Obesity, morbid (more than 100 lbs over ideal weight or BMI > 40) ([facility]) E66.01 Dyslipidemia, goal LDL below 70 E78.5 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 R39.81 Acquired hypothyroidism E03.9 Chronic pain syndrome G89.4 MEDICATION USE AGREEMENT [id number] Cirrhosis of liver ([facility]) K74.60 THAD on CPAP G47.33, Z99.89 Wheelchair dependent Z99.3 Pancytopenia ([facility]) D61.818 Ambulatory dysfunction R26.2 DM type 2 with diabetic peripheral neuropathy ([facility]) E11.42 Insomnia G47.00 Recurrent major depressive disorder, in partial remission ([facility]) F33.41 Impaired mobility and ADLs Z74.09 Generalized weakness R53.1 Gastroesophageal reflux disease K21.9 History of Achilles tendon repair Z98.890 Anemia D64.9 Fibromyalgia M79.7 Achilles tendinitis, right leg M76.61 DNR (do not resuscitate) Z66 Thrombocytopenia ([facility]) D69.6 Iron deficiency anemia due to chronic blood loss D50.0 Splenomegaly R16.1 Cellulitis of right lower extremity L03.115 Cellulitis of right toe L03.031 Diabetic ulcer of right great toe ([facility]) E11.621, L97.519 Current Outpatient Medications Medication Sig Dispense Refill Insulin Aspart 100 UNIT/ML Subcutaneous Solution (NovoLOG) Inject 20 units under the skin before breakfast, 20 units before lunch, and 20 units before supper 60 mL 3 famotidine (PEPCID) 20 MG Tablet Take 1 Tab by mouth every night at bedtime. 34 Tab 0 ondansetron (ZOFRAN) 4 MG Tablet Take 1 Tab by mouth every 12 hours as needed for Nausea for upto 6 days. 6 Tab 0 Clindamycin HCl 300 MG Capsule Take 2 Caps by mouth 3 times a day. 40 Cap 0 Continuous Blood Gluc Film Reader (FREESTYLE XOCHITL 2 READER SYSTM) KORTNEY Freestyle Xochitl 2 14-day Film Reader (409275) 1 Package 0 Continuous Blood Gluc Sensor (FREESTYLE XOCHITL 2 SENSOR SYSTM) MISC Freestyle Xochitl 2 14-day Sensor (181530) (2 sensors=28 day/1-month supply) 2 Each 1 [...] daily before breakfast. 90 Cap 3 PEG 3037-LPt-SwAtw-NaCl-NaSulf (GOLYTELY) 227.1 g PACK Drink 2 liters [...] Tab by mouth daily. 90 Tab 3 atorvaSTATin (LIPITOR) 40 MG Tablet TAKE 1 [...] With spacer 16 g 1 nystatin (NYSTOP) 827971 UNIT/GM powder Apply topically to affected area 3 times a day. 60 g 1 fluticasone (FLONASE) 50 MCG/ACT nasal spray INSTILL 2 SPRAYS INTO EACH NOSTRIL DAILY DIRECTED 16 g 5 vitamin c (ASCORBIC ACID) 500 MG Tablet Take 500 mg by mouth daily. CENTRUM SILVER PO TABS 1 tab daily 1 Tab 0 NovoLOG FlexPen 100 UNIT/ML Subcutaneous Solution Pen-injector furosemide (LASIX) 20 MG Tablet TAKE 1 TABLET BY MOUTH ONCE DAILY NEEDED FOR EDEMA 30 Tab 5 albuterol sulfate (PROVENTIL) (2.5 MG/3ML) 0.083% nebulizer solution Inhale 1 Vial via nebulizer every 6 hours as needed for Wheezing. 120 Vial 11 Review of patient's allergies indicates: Allergen Reactions Adhesive Tape Itching Pcn [Penicillins] Rash Objective: BP 110/74 | Pulse 64 | Temp 36.8 C (98.2 F) (Tympanic) | Resp 20 Physical Exam: General: alert, healthy and no distress, sitting in her scooter. Heart: regular rate & rhythm, no murmurs and no gallops Lungs: chest symmetric with normal AP diameter, no chest deformities noted, no chest wall tenderness, lungs clear to auscultation Abdomen: abdomen soft, non-tender, obese, normal bowel sounds and no masses or organomegaly Extremities: lymphedema in her feet and ankles. The right great toe I looked at and has bruising, and small opening the very tip of her toe. No drainage. ASSESSMENT/PLAN: Right upper quadrant pain (Primary) Extensive workup already. Her gallbladder did appear normal. I am wondering if this is esophageal spasm, vs gastroparesis vs MSK in nature. I did message GI to see if EGD can be added on Monday Given that she has hx of reflux and feels that at times she cannot swallow her pills. But as mentioned above her scope was just completed in November. In the meantime I added Carafate. She will get stress testing rescheduled. Risk and functional assessment - PAT SCRN FOR FALL RISK - PRES OR ABS OF URIN INCONT Need for prophylactic vaccination and inoculation against influenza - INFLUENZA VACC, QUAD, PF, 6 MONTHS & UP, 0.5 ML, IM Type 2 diabetes mellitus with hemoglobin A1c goal of less than 7.0% (HCC) Cirrhosis of liver without ascites, unspecified hepatic cirrhosis type (HCC) Cellulitis of right lower extremity Complete clindamycin. Atypical chest pain As above, stress test she will re schedule.worsening chest pain report to the ER. Other orders - Sucralfate 1 GM Oral Tablet (CARAFATE); Take 1 Tab by mouth 4 times a day before meals and at bedtime. Alexandra Caceres DO * Michaelle Lindquist LPN - 06/01/2020 11:25 AM EDT Chief Complaint Patient presents with Hospital Follow-Up PRE - ADMINISTRATION DOCUMENTATION Are you allergic to latex? No Are you experiencing any cold symptoms or fever? No Have you had Guillain-Breaks Syndrome (an illness that causes paralysis) within the last 6 weeks? No Have you had the flu shot in the past? YES Have you ever had a reaction to the flu shot? No Michaelle Lindquist LPN, 06/01/2020 12:27 PM Immunization Administration Documentation Time Out Procedure Performed: Yes Patient Identified (Ask Name/Date of ): Yes Does the patient have a fever greater than 101 degrees today? No Patient allergic to latex? No VFC Stock: No Immunization(s) verified: Yes, Immunization Name: Flu, VIS Sheet(s) given: Yes Verified Side and Site: Yes Verified Shot(s) with Parent(s)/Patient: Yes documented in this encounter Plan of Treatment Upcoming Encounters Date Type Specialty Care Team Description 06/03/2020 Hospital Encounter Surgery Janis Hatch, DO [address] [facility] [place] [address] [phone] 06/03/2020 Surgery Surgery Janis Hatch, DO [address] [place] [address] [phone] COLONOSCOPY FLEXIBLE PROXIMAL DIAGNOSTIC 06/05/2020 Pharmacy Pharmacy [facility] [address] [place] [address] [phone] 06/09/2020 Office Visit Wound Care Prakash Honeycutt PA-C [address] [place] [address] [phone] 06/09/2020 Office Visit Endocrinology Alberta Duque PA-C [address] [place] [address] [phone] 06/10/2020 Office Visit Gynecology Obstetrics [place] MD [address] [place] [address] [phone] 06/23/2020 Office Visit Gastroenterology Lyssa Stout CRNP [address] [facility] [place] [address] [phone] 06/30/2020 Office Visit Hematology Oncology Tono Sanchez MD [address] [place] [address], [place] [address] [phone] 07/01/2020 Office Visit Pharmacy [facility] [address] [place] [address] [phone] 07/29/2020 Office Visit Family Medicine [facility]winder Carter, DO [address] [facility] [id number] 07/31/2020 Nutrition Services Gastroenterology Melissa Omalley, [place] [address] [place] [address] [phone] 09/03/2020 Imaging Radiology Health Maintenance Due Date [...] encounter Visit Diagnoses Diagnosis Right upper quadrant pain- Primary Abdominal pain, right upper quadrant Risk and functional assessment Screening for unspecified condition Need for prophylactic vaccination and inoculation against influenza Type 2 diabetes mellitus with hemoglobin A1c goal of less than 7.0% (HCC) Cirrhosis of liver without ascites, unspecified hepatic cirrhosis type (HCC) Cellulitis of right lower extremity Cellulitis and abscess of leg, except foot Atypical chest pain Other chest pain Encounter for screening colonoscopy Special screening for malignant neoplasms, colon documented in this encounter Advance Directives Documents on File Type Date Recorded Patient Vault Service Mechanic Expl anation Advanced Directive service a [...] Clinic Communication Syed Bustos Spouse Emergency Contact "
--- OUTSIDE RECORDS SUMMARY | 2023-05-10 22:23 | External Medical Summary | Summary of Care ---
Author Name Unknown Organization [place] [address] Care Team Providers Care Nuclear Medicine Tech Name Role Phone Alexandra Mane DO Primary Care Provider [phone] Reason for Referral * Ancillary Services (Within 10 days (routine)) Status Reason Specialty Diagnoses / Procedures Referred By Contact Referred To Contact Pending Review Ancillary Services Required Gastroenterology Diagnoses Esophageal dysphagia Alexandra Mane DO [address] [place] [address] Encounter Details Date Type Department Care Team Description 06/01/[address] [facility] [address] [place] [address] Alexandra Mane DO [address], [place] [id number] Allergies Active Allergy Reactions Severity Noted Date [...] 120 Vial 11 10/02/2019 Active nystatin (NYSTOP) 188931 UNIT/GM powder Apply topically to affected area [...] breakfast. 90 Cap 3 05/04/2020 Active PEG 0818-AMe-NyWdx-NaCl -NaSulf (GOLYTELY) 227.1 g PACK Drink 2 [...] SYSTM) MISC Freestyle Xochitl 2 14-day Sensor (682990) (2 sensors=28 day/1-month supply) 2 Each 1 05/26/2020 Active Continuous Blood Gluc Front Desk Team Member (FREESTYLE XOCHITL 2 READER SYSTM) KORTNEY Freestyle Xochitl 2 14-day Front Desk Team Member (754793) 1 Package 0 05/26/2020 Active famotidine (PEPCID) [...] pain 01/24/2012 01/17/2017 Genetic Sleep Disorder Research Other*[id number] 05/13/2011 04/07/2016 Obstructive sleep apnea 01/18/2011 12/27/19 [...] up. She is scheduled with you at [place] for colonoscopy, can she get EGD as [...] 06/03/2020 Hospital Encounter Surgery Janis Hatch, [address] [facility] [place] [address] [phone] 06/03/2020 Surgery Surgery Janis Hatch, [address] [facility] [place] [address] [phone] COLONOSCOPY FLEXIBLE PROXIMAL DIAGNOSTIC 06/05/2020 Pharmacy Pharmacy [address] [phone] 06/09/2020 Office Visit Wound Care Prakash Honeycutt PA-C [address] [place] [address] 06/09/2020 Office Visit Endocrinology Alberta Duque PA-C [address] [place] [address] 06/10/2020 Office Visit Gynecology Obstetrics Marie Myrick MD [address] [place] [address] 06/23/2020 Office Visit [facility]enterology [facility] [address] [facility] [address] 06/30/2020 Office Visit Hematology Oncology Tono Sanchez MD [address] [place] [address] [phone] 07/01/2020 Office Visit Pharmacy [facility] [address] [place] [address] 07/29/2020 Office Visit Family Medicine Rajwinder Carter DO [address] [place] [address] 07/31/2020 Nutrition Services Gastroenterology Melissa Omalley, [place] [address] [facility] [place] [address] 09/03/2020 Imaging Radiology Scheduled Referrals [...] history exists DXA-SCREENING EVERY 7 YRS-USE SMARTSET# 0659 TO ORDER 2020 Pneumococcal Vaccine: 65+ Years [...] Documents on File Type Date Recorded Patient Astronomy Instructor Expl anation Advanced Directive service a [...]
--- OUTSIDE RECORDS SUMMARY | 2023-05-10 22:24 | External Medical Summary | Summary of Care ---
Author Name Unknown Organization [facility] Address [facility] [place] [address] Care Team Providers Care Staff Forester Name Role Phone Rajwinder Carter DO Primary Care Provider Reason for Visit * Reason Comments Advice Blood Sugar 406 Encounter Details Date Type Department Care Team Description 05/28/[address] [facility] [address], [place] [id number] Rajwinder Carter DO [address], [place] [id number] Advice (Blood Sugar 406) Allergies Active Allergy Reactions Severity Noted Date Comments Adhesive Tape Itching 04/29/2020 Penicillins Rash 02/12/2008 documented as of this encounter (statuses as of 05/28/2020) Medications Medication Sig Dispensed Refills Start Date [...] 120 Vial 11 10/02/2019 Active nystatin (NYSTOP) 428304 UNIT/GM powder Apply topically to affected area [...] breakfast. 90 Cap 3 05/04/2020 Active PEG 3027-SWi-IqFsu-NaCl- NaSulf (GOLYTELY) 227.1 g PACK Drink 2 [...] SYSTM) MISC Freestyle Xochitl 2 14-day Sensor (570094) (2 sensors=28 day/1-month supply) 2 Each 1 05/26/2020 Active Continuous Blood Gluc Firefighter Type One (FREESTYLE XOCHITL 2 READER SYSTM) KORTENY Freestyle Xochitl 2 14-day Firefighter Type One (179642) 1 Package 0 05/26/2020 Active documented as of this encounter (statuses as of 05/28/2020) Active Problems Problem Noted Date Diabetic ulcer [...] as of this encounter (statuses as of 05/28/2020) Resolved Problems Problem Noted Date Resolved Date [...] pain 01/24/2012 01/17/2017 Genetic Sleep Disorder Research Other*[id number] 05/13/2011 04/07/2016 Obstructive sleep apnea 01/18/2011 12/27/19 [...] as of this encounter (statuses as of 05/28/2020) Immunizations Name Administration Dates Next Due HEP [...] as soon as done , pt aware licowill wait for call. Nurse advised Me to tell pt do what she feels necessary * Telephone Encounter - Shannan Bowser OSA - 05/28/2020 6:03 PM EDT Reason for patient's call: Sugar high, 360, dizziness Caller was transferred to [facility] at the nurse line. * Telephone Encounter - Shahnaz Starr LPN - 05/28/2020 5:56 PM EDT Patient was trying to contact [place] office to return their call and was transferred here. Patient was given the [place] office number to call. 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 documented in this encounter Plan of Treatment Upcoming Encounters Date Type Specialty Care Team Description 05/29/2020 Cardiac Studies Cardiac Studies Dobutamine [address] [place] [address] 06/01/2020 Office Visit Pharmacy [facility] [address] [place] [facility] [address] [phone] 06/01/2020 Office Visit Family Medicine Alexandra Caceres, DO [address] [place] [address] [phone] 06/03/2020 Hospital Encounter Surgery Janis Hatch, DO [address] [facility] [facility] [place] [address] [phone] 06/03/2020 Surgery Surgery Janis Hatch, DO [address] [place] [address] [phone] COLONOSCOPY FLEXIBLE PROXIMAL DIAGNOSTIC 06/09/2020 Office Visit Wound Care Prakash Honeycutt PA-C [address] [place], [place] [phone] 06/09/2020 Office Visit Endocrinology Alberta Duque PA-C [address] [place], [place] [phone] 06/10/2020 Office Visit Gynecology Obstetrics [place] MD [address] [place] [address] 06/23/2020 Office Visit Gastroenterology Lyssa Stout CRNP [address] [place] [address] [phone] 06/30/2020 Office Visit Hematology Oncology Tono Sanchez MD [address] [place] [address] [phone] 07/29/2020 Office Visit Family Medicine Rajwinder Carter, DO [address] [place] [facility] [address] [phone] 07/31/2020 Nutrition Services Gastroenterology Melissa Omalley RDN [address] [place] [address] [phone] 09/03/2020 Imaging Radiology Health Maintenance Due Date [...] Documents on File Type Date Recorded Patient Datastage Consultant Expl anation Advanced Directive service a [...] Agents on File Name Relationship Healthcare Agent Romainnh navya Communication Syed Bustos Spouse Emergency Contact
--- OUTSIDE RECORDS SUMMARY | 2023-05-10 22:24 | External Medical Summary | Summary of Care ---
Author Name Unknown Organization [facility] Address [facility] [place] [address] Care Team Providers Care Drilling Field Specialist Name Role Phone Rajwinder Carter DO Primary Care Provider [phone] Reason for Visit * Reason Comments Advice Blood Sugar 406 Encounter Details Date Type Department Care Team Description 05/28/2020 Telephone [facility] [address], [place] [id number] Rajwinder Carter DO [address], [place] [address] Advice (Blood Sugar 406) Allergies Active Allergy [...] 120 Vial 11 10/02/2019 Active nystatin (NYSTOP) 656238 UNIT/GM powder Apply topically to affected area [...] breakfast. 90 Cap 3 05/04/2020 Active PEG 5708-GHo-KkZzv-NaCl- NaSulf (GOLYTELY) 227.1 g PACK Drink 2 [...] SYSTM) MISC Freestyle Xochitl 2 14-day Sensor (783699) (2 sensors=28 day/1-month supply) 2 Each 1 05/26/2020 Active Continuous Blood Gluc Punch Machine Hand (FREESTYLE XOCHITL 2 READER SYSTM) KORTNEY Freestyle Xochitl 2 14-day Punch Machine Hand (425797) 1 Package 0 05/26/2020 Active documented as [...] pain 01/24/2012 01/17/2017 Genetic Sleep Disorder Research Other*[id number] 05/13/2011 04/07/2016 Obstructive sleep apnea 01/18/2011 12/27/19 [...] patient is aware, and verbalizes an understanding. * Telephone Encounter - Rajwinder Carter DO [...] high, 360, dizziness Caller was transferred to [facility] at the nurse line. * Telephone Encounter - Shahnaz Starr LPN - 05/28/2020 5:56 PM EDT Patient was trying to contact [place] office to return their call and was transferred here. Patient was given the [place] office number to call. * Telephone Encounter - Jovana Lambert RN - 05/28/2020 5:43 PM EDT Called Mobile Mail box full unable to leave a message * Telephone Encounter - Rajwinder Carter DO - 05/28/2020 5:27 PM EDT Pt was supposed to grape picker insulin upon her discharge on 05/26 [...] office spoke Pura advised to send message [phone] * Telephone Encounter - Quyen Starks OSA - 05/28/2020 4:42 PM EDT Reason for patient's call: Blood Sugar 406 Caller was transferred to [facility] at the nurse line. documented in this encounter Plan of Treatment Upcoming Encounters Date Type Specialty Care Team Description 05/29/2020 Cardiac Studies Cardiac Studies Dobutamine [address] [place] [address] 06/01/2020 Office Visit Pharmacy [facility] [address] [place] [address] [phone] 06/01/2020 Office Visit Family Medicine Alexandra Caceres, DO [address] [place] [address] [phone] 06/03/2020 Hospital Encounter [facility]atch[facility] [address] [facility] [address] 06/03/2020 Surgery Surgery Janis Hatch, DO [address] [facility] [place] [address] [phone] COLONOSCOPY FLEXIBLE PROXIMAL DIAGNOSTIC 06/09/2020 Office Visit Wound Care Prakash Honeycutt PA-C [address] [place], [place] [address] 06/09/2020 Office Visit Endocrinology Alberta Duque PA-C [address] [place] [facility] [place] [address] 06/10/2020 Office Visit Gynecology Obstetrics Marie Myrick MD [address] [facility] [place] [address] 06/23/2020 Office Visit Gastroenterology Lyssa Stout CRNP [address] [facility] [place] [address] [phone] 06/30/2020 Office Visit Hematology Oncology Tono Sanchez MD [address] [facility] [place] [address] [phone] 07/29/2020 Office Visit Family Medicine Rajwinder Carter DO [address] [facility], [place] [address] [phone] 07/31/2020 Nutrition Services Gastroenterology Melissa Omalley, RDN [address] [place], [place] [address] [phone] 09/03/2020 Imaging Radiology Health Maintenance Due Date [...] Documents on File Type Date Recorded 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
--- OUTSIDE RECORDS SUMMARY | 2023-05-10 22:24 | External Medical Summary ---
Author Name Unknown Address [facility] N [facility] [place] [address] Phone Organization K01:[place] [id number] Laboratory Report Ordering Provider Test Date Status OUSMANE BACK 05/29/2020 11:23:00 Final Observation Date Value Abnormality Reference (Units ) Status Troponin T 05/29/2020 12:34 9 0-14 (ng/L) Final Performing Location [address] [address]
--- OUTSIDE RECORDS SUMMARY | 2023-05-10 22:24 | External Medical Summary ---
Author Name Unknown Address [address] [place] [address] Phone Organization K01:[place] [address] Laboratory Report Ordering Provider Test Date Status OUSMANE BACK 05/29/2020 11:23:00 Final Observation Date Value Abnormality Reference (Units ) Status D-dimer, Quant. 05/29/2020 14:22 0.96 Above high normal <0.50 (ug/ml FEU) Final Performing Location [place] [id number]
--- OUTSIDE RECORDS SUMMARY | 2023-05-10 22:24 | External Medical Summary | Summary of Care ---
Author Name Unknown Organization [place] [address] Care Team Providers Care Farmworker Fruit Name Role Phone Rajwinder Carter DO Primary Care Provider [phone] Reason for Referral * Evaluate & Treat - Unlimited Visits (Within 10 days (routine)) Status Reason Specialty Diagnoses / Procedures Referred By Contact Referred To Contact Pending Review Specialty Services Required HOME CARE / Home Care Diagnoses Diabetic ulcer of toe associated with type 2 diabetes mellitus, unspecified laterality, unspecified ulcer stage ([facility]) Rajwinder Carter DO [address] [place] [address] * Evaluate & Treat - Unlimited Visits (Within 3 days (urgent)) Status Reason Specialty Diagnoses / Procedures Referred By Contact Referred To Contact Pending Review Specialty Services Required Pharmacist / Pharmacy Diagnoses Type 2 diabetes mellitus with hemoglobin A1c goal of less than 7.0% ([facility]) Rajwinder Carter DO [address] [place] [address] Reason for Visit * Reason Comments Advice Encounter Details Date Type Department Care Team Description 05/27/2020 Telephone Ancillary Department, [address] [address] Rosio Hunter RN Advice Allergies Active Allergy Reactions Severity Noted [...] 120 Vial 11 10/02/2019 Active nystatin (NYSTOP) 155115 UNIT/GM powder Apply topically to affected area [...] less than 7.0% ([facility]) Inject 1 syringeful once weekly [...] breakfast. 90 Cap 3 05/04/2020 Active PEG 4235-CZd-YzDmy-NaCl- NaSulf (GOLYTELY) 227.1 g PACK Drink 2 [...] less than 7.0% ([facility]) Use with lantus daily 100 Each 3 [...] SYSTM) MISC Freestyle Xochitl 2 14-day Sensor (719535) (2 sensors=28 day/1-month supply) 2 Each 1 05/26/2020 Active Continuous Blood Gluc Water Taxi Ferry Operator (FREESTYLE XOCHITL 2 READER SYSTM) KORTNEY Freestyle Xochitl 2 14-day Water Taxi Ferry Operator (843197) 1 Package 0 05/26/2020 Active documented as [...] pain 01/24/2012 01/17/2017 Genetic Sleep Disorder Research Other*[id number] 05/13/2011 04/07/2016 Obstructive sleep apnea 01/18/2011 12/27/19 [...] Telephone Encounter - Indira Hudson RPh - 05/28/2020 9:49 AM EDT Noted by MTM. Will address referral Indira Hudson RPh, Pharm D, BCACP Clinical Pharmacist 05/28/20 9:49 AM * Telephone Encounter - Rajwinder Carter DO - 05/27/2020 4:58 PM EDT Orders signed. Please fax home health orders. * Telephone Encounter - Rosio Hunter RN - 05/27/2020 4:34 PM EDT Patient discharge from hospital. Needs Home health for wound care to R. Great toe. Patient blood sugars running between 380-411. Patient started on Novolog at hospital but has not picked up from Pharmacy. Advised that they need to pharmacy picking tech Novolog and start using ihsan. Also ordered Freestyle Xochitl for monitoring which they need to pharmacy picking tech from Pharmacy also. MTM referral placed for instruction on Novolog and Frestyle Xochitl. documented in this encounter Plan of Treatment Upcoming Encounters Date Type Specialty Care Team Description 05/29/2020 Cardiac Studies Cardiac Studies Dobutamine [address] [place], [place] [id number] 06/01/2020 Office Visit Family Medicine Alexandra Caceres, [address] [place] [address] [phone] 06/03/2020 Hospital Encounter Surgery Janis Hatch, DO [address] [place] [address] [phone] 06/03/2020 Surgery Surgery Janis Hatch, DO [address] [place] [address] [phone] COLONOSCOPY FLEXIBLE PROXIMAL DIAGNOSTIC 06/10/2020 Office Visit Gynecology Obstetrics FlournoyMarie MD [address] [place], [place] [address] 06/11/2020 Telemedicine Wound Care Prakash Honeycutt PA-C [address] [place] [address] 06/23/2020 Office Visit Gastroenterology Lyssa Stout CRNP [address] [place] [address] [phone] 06/30/2020 Office Visit Hematology Oncology Tono Sanchez MD [address] [place] [address], [place] [address] [phone] 07/29/2020 Office Visit Family Medicine Rajwinder Carter DO [address] [place] [address] [phone] 07/31/2020 Nutrition Services Gastroenterology Melissa Omalley, RDN [address] [place] [address] 09/03/2020 Imaging Radiology Scheduled Referrals Name Type Priority Associated Diagnoses Orde r Schedule PHARMACIST MEDS THERAPY MGMT REFERRAL OP Referral Within 3 days (urgent) Type 2 diabetes mellitus with hemoglobin A1c goal of less than 7.0% (HCC) Ordered: 05/27/2020 HOME HEALTH REFERRAL OP Referral Within 10 days (routine) Diabetic ulcer of toe associated with type 2 diabetes mellitus, unspecified laterality, unspecified ulcer stage (HCC) Ordered: 05/27/2020 Health Maintenance Due Date Last Done Comments [...] goal of less than 7.0% (HCC)- Primary Diabetic ulcer of toe associated with type 2 diabetes mellitus, unspecified laterality, unspecified ulcer stage (HCC) documented in this encounter Advance Directives Documents on File Type Date Recorded Patient Turnstile Attendant Expl anation Advanced Directive service a [...] Agents on File Name Relationship Healthcare Agent [facility] Communication Syed Bustos Spouse Emergency Contact
--- OUTSIDE RECORDS SUMMARY | 2023-05-10 22:24 | External Medical Summary ---
Author Name Unknown Address [facility] [place] [address] Phone Organization K01:[place] [id number] Laboratory Report Ordering Provider Test Date Status OUSMANE BACK 05/29/2020 11:23:00 Final Observation Date Value Abnormality Reference (Units ) Status BUN 05/29/2020 12:34 13 6-20 (mg/dL) Final Creatinine 05/29/2020 12:34 0.6 0.5-1.0 (mg/ dL) Final E Glom Filt Rate 05/29/2020 12:34 >60.0 >60 Final Performing Location [address] [address]
--- OUTSIDE RECORDS SUMMARY | 2023-05-10 22:24 | External Medical Summary ---
Author Name Unknown Address [facility] [place] [facility] Phone Organization K01:[place] [address] Laboratory Report Ordering Provider Test Date Status OUSMANE BACK 05/29/2020 11:23:00 Final Observation Date Value Abnormality Reference (Units ) Status CK-MB 05/29/2020 12:34 1.6 0-4.3 (ng/mL) Final Performing Location [address] [address]
--- OUTSIDE RECORDS SUMMARY | 2023-05-10 22:24 | External Medical Summary | Summary of Care ---
Author Name Unknown Organization [facility] Address [facility] [place] [address] Care Team Providers Care Sap Ppm Consultant Name Role Phone Rajwinder Carter DO Primary Care Provider Reason for Visit * Reason Comments Advice Blood Sugar 406 Encounter Details Date Type Department Care Team Description 05/28/2020 Telephone [facility] [address], [place] [id number] Rajwinder Carter DO [address], [place] [address] Advice (Blood Sugar 406) Allergies Active Allergy [...] 120 Vial 11 10/02/2019 Active nystatin (NYSTOP) 437250 UNIT/GM powder Apply topically to affected area [...] breakfast. 90 Cap 3 05/04/2020 Active PEG 0535-OLc-SvZlr-NaCl- NaSulf (GOLYTELY) 227.1 g PACK Drink 2 [...] SYSTM) MISC Freestyle Xochitl 2 14-day Sensor (154011) (2 sensors=28 day/1-month supply) 2 Each 1 05/26/2020 Active Continuous Blood Gluc Labor Gang Supervisor (FREESTYLE XOCHITL 2 READER SYSTM) KORTNEY Freestyle Xochitl 2 14-day Labor Gang Supervisor (360458) 1 Package 0 05/26/2020 Active documented as [...] pain 01/24/2012 01/17/2017 Genetic Sleep Disorder Research Other*[id number] 05/13/2011 04/07/2016 Obstructive sleep apnea 01/18/2011 12/27/19 [...] high, 360, dizziness Caller was transferred to [facility] at the nurse line. * Telephone Encounter - Shahnaz Starr LPN - 05/28/2020 5:56 PM EDT Patient was trying to contact [facility] to return their call and was transferred here. Patient was given the [place] office number to call. * Telephone Encounter - Jovana Lambert RN - 05/28/2020 5:43 PM EDT Called Mobile Mail box full unable to leave a message * Telephone Encounter - Rajwinder Carter DO - 05/28/2020 5:27 PM EDT Pt was supposed to sweet pickle maker insulin upon her discharge on 05/26 and [...] office spoke Pura advised to send message [phone] * Telephone Encounter - Quyen Starks OSA - 05/28/2020 4:42 PM EDT Reason for patient's call: Blood Sugar 406 Caller was transferred to [facility] at the nurse line. documented in this encounter Plan of Treatment Upcoming Encounters Date Type Specialty Care Team Description 05/29/2020 Cardiac Studies Cardiac Studies Dobutamine [address] [place] [address] 06/01/2020 Office Visit Pharmacy [facility] [address] [place] [address] [phone] 06/01/2020 Office Visit Family Medicine Alexandra Caceres, DO [address] [place] [address] [phone] 06/03/2020 Hospital Encounter Surgery Janis Hatch, DO [address] [place] [address] [phone] 06/03/2020 Surgery Surgery Janis Hatch, DO [address] [place] [address] [phone] COLONOSCOPY FLEXIBLE PROXIMAL DIAGNOSTIC 06/09/2020 Office Visit Wound Care Prakash Honeycutt PA-C [address] [facility], [place] [address] 06/09/2020 Office Visit Endocrinology Alberta Duque PA-C [address] [facility] [place] [address] 06/10/2020 Office Visit Gynecology Obstetrics CrestonMarie MD [address] [facility], [place] [address] 06/23/2020 Office Visit Gastroenterology Lyssa Stout CRNP [address] [place] [address] [phone] 06/30/2020 Office Visit Hematology Oncology Tono Sanchez MD [address] [place] [address], [place] [address] [phone] 07/29/2020 Office Visit Family Medicine [facility]inder Carter DO [address] [facility] [address] 07/31/2020 Nutrition Services Gastroenterology Melissa Omalley, RDN [address] [place] [address] [phone] 09/03/2020 Imaging Radiology Health Maintenance Due Date [...] Documents on File Type Date Recorded Patient Gender Studies Professor Expl 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
--- OUTSIDE RECORDS SUMMARY | 2023-05-10 22:24 | External Medical Summary ---
Author Name Unknown Address [facility] N [facility] [place] [address] Phone Organization K01:[place] [address] [address] [facility] [place] [address] Laboratory Report Ordering Provider Test Date Status OUSMANE BACK 05/29/2020 11:23:00 Final Observation Date Value Abnormality Reference (Units ) Status WBC, Total 05/29/2020 12:38 4.79 4.00-10.80 ( K/uL) Final RBC 05/29/2020 12:38 3.11 Below low normal 3.85-5 .15 (M/uL) Final Hemoglobin 05/29/2020 12:38 9.4 Below low normal 12.0- 15.3 (g/dL) Final HCT 05/29/2020 12:38 31.1 Below low normal 36.0-4 5.2 (%) Final MCV 05/29/2020 12:38 100.0 Above high normal 81.5- 97.5 (fL) Final MCH 05/29/2020 12:38 30.2 27.0-34.0 (pg ) Final MCHC 05/29/2020 12:38 30.2 Below low normal 32.0-3 6.0 (g/dL) Final RDW 05/29/2020 12:38 15.8 Above high normal 11.5- 15.5 (%) Final Platelets 05/29/2020 12:38 89 Below low normal 140-40 0 (K/uL) Final Performing Location [address] [place] [address]
--- OUTSIDE RECORDS SUMMARY | 2023-05-10 22:24 | External Medical Summary | Summary of Care ---
Author Name Unknown Organization [facility] Address [facility] [place] [address] Care Team Providers Care Personnel Director Name Role Phone JohnbrianRajwinder thacker Primary Care Provider [phone] Reason for Visit * Reason Comments Referral ref-urgent Encounter Details Date Type Department Care Team Description 05/28/2020 Telephone Pharmacy, [facility] [address] [place] [address] [facility] [address] [place] [address] [phone] Referral (ref-urgent) Allergies Active Allergy Reactions Severity Noted Date [...] 120 Vial 11 10/02/2019 Active nystatin (NYSTOP) 260719 UNIT/GM powder Apply topically to affected area [...] breakfast. 90 Cap 3 05/04/2020 Active PEG 1686-XAv-JtUls-NaCl- NaSulf (GOLYTELY) 227.1 g PACK Drink 2 [...] SYSTM) MISC Freestyle Xochitl 2 14-day Sensor (653590) (2 sensors=28 day/1-month supply) 2 Each 1 05/26/2020 Active Continuous Blood Gluc Gas Operations Superintendent (FREESTYLE XOCHITL 2 READER SYSTM) KORTNEY Freestyle Xochitl 2 14-day Gas Operations Superintendent (897330) 1 Package 0 05/26/2020 Active documented as [...] pain 01/24/2012 01/17/2017 Genetic Sleep Disorder Research Other*[id number] 05/13/2011 04/07/2016 Obstructive sleep apnea 01/18/2011 12/27/19 [...] Telephone Encounter - Indira Hudson, [facility] - 05/28/2020 2:59 PM EDT Referral reviewed and is appropriate. Please schedule. Initial appt length: 40 min Appointment type indicated: In Person or video Preferred Clinic for Appointment: [facility] Patient referred to [facility] clinic for diabetes on behalf of Rajwinder Carter DO. Referral reviewed and relevant pre-visit information listed below: DM: Relevant history obtained from referral: New to Novolog and Freestyle Xochitl. Per TE 05/27, "Patient blood sugars running between 380-411. Patient started on Novolog at hospital but has not picked up from Pharmacy. Advised that they need to warehouse picker Novolog and start using ihsan. Also ordered Freestyle Xochitl for monitoring which they need to warehouse picker from Pharmacy also. Update this am from UMA Hunter: "Spoke to patient this am. They did warehouse picker Novolog last evening but did not start using it. He states he will start it today. He has not taking patient bsg yet today due to her still sleeping. Advised to call if he has any questions or concern. Informedhim that Dr. Carter would like home health to start with patient. in agree ance. had no preference on home care. Patient had been established with [facility] in the past. Referral faxed to them. Advised [facility] will be calling to set up and appointment to help withdiabetes management and Freestyle xochitl." Target Hgb A1c: <7% Hemoglobin A1c Results: HEMOGLOBIN, A1C(%) Lucio Dt/Tm Resulted Value Status 05/26/20 4:44A 05/26/20 11.0* FINAL 04/28/20 4:37P 04/28/20 9.9* FINAL 02/21/20 11:43A 02/21/20 6.7* FINAL Current DM Medications: Novolog, Inject 12 Units under the skin three times a day before meals. Plus cover meals with following sliding scale. 80-150 (0 units of insulin ); 151-200 (2 units); 201-250 (4 units); 251-300 (6 units) Lantus pen, 24 units daily Metformin 1000mg, 1 tablet twice a day Trulicity 1.5mg SQ weekly GFR >60 as of 05/26/20 Freestyle Xochitl Current YULI/ARB therapy: NO Serum creatinine: 0.6 mg/dL 05/26/20 0444 Estimated creatinine clearance: 81.1 mL/min Current statin therapy: YES atorvastatin 40mg daily Follow-up as scheduled. Patient Phone Numbers Called and spoke with patient and spouse. Confirmed picked up Novolog. Has not checked BG today. Has not picked up Xochitl. Unsure if covered but will check with pharmacy. Patient agreeable to working with [facility]. Patient having difficulty understanding instructions over the phone so will bring patient in for inperson new DM visit on 06/01 at 8am at [facility]. Patient agreeable to checking BG 1-4 times daily on rotation (before meals and at bedtime). Indira Hudson RPh 05/28/2020, 2:59 PM * Telephone Encounter - Kimberly Hernandez TECH - 05/28/2020 7:25 AM EDT Diagnosis: diabetes New to Novolog and Freestyle Xochitl Minimum frequency patient should be seen in person for medication management: as appropriate per clinical condition and patient status By my signature, I understand that my patient Shaina Bustos will have her medication therapy managedby the [facility] Medication Therapy Disease Management [facility] ([facility]) per established policies, procedures, and protocols. I also certify that this referral may serve as an initiation of service for the management of drug therapy in the above noted patient. [facility] providers will be responsible for scheduling patient visits, obtaining appropriate laboratory studies, and adjusting medication management therapy per patient's need, in addition to those roles spelled out in the clinic policy, procedures, and drug management protocols. I understand that the service provided by the [facility] Clinic is voluntary and have informed patient that they can refuse the service at their discretion. I am aware that the [facility] Clinic will provide me with a copy of the patient encounter via my [employer]. I authorize the [facility] to carry out these activities on my behalf. I consider this program to be a necessary part of the patient's medical care. Rosio Hunter RN documented in this encounter Plan of Treatment Upcoming Encounters Date Type Specialty Care Team Description 05/29/2020 Cardiac Studies Cardiac Studies Dobutamine [address] [place] [address] 06/01/2020 Office Visit Pharmacy [facility] [address] [place] [address] [phone] 06/01/2020 Office Visit Family Medicine Alexandra Caceres, DO [address] [place] [address] [phone] 06/03/2020 Hospital Encounter Surgery Janis Hatch, DO [address] [facility] [place] [address] [phone] 06/03/2020 Surgery Surgery [facility]atch, DO [facility] [place] [address] [phone] COLONOSCOPY FLEXIBLE PROXIMAL DIAGNOSTIC 06/09/2020 Office Visit Wound Care Prakash Honeycutt, JEYSON [address] [place] [address] 06/09/2020 Office Visit Endocrinology Alberta Duque PA-C [address] [place] [address] 06/10/2020 Office Visit Gynecology Obstetrics AnatoneMarie MD [address] [place] [address] 06/23/2020 Office Visit Gastroenterology Lyssa Stout CRNP [address] [place] [address] [phone] 06/30/2020 Office Visit Hematology Oncology Tono Sanchez MD [address] [place] [address] 07/29/2020 Office Visit Family Medicine Rajwinder Carter, [address] [place] [address] 07/31/2020 Nutrition Services Gastroenterology Melissa Omalley, SAM[place]THA [address] [place] [address] [phone] 09/03/2020 Imaging Radiology Health Maintenance Due Date [...] Documents on File Type Date Recorded Patient Smoking Pipe Coater Expl anation Advanced Directive service a kerri [...]
--- OUTSIDE RECORDS SUMMARY | 2023-05-10 22:24 | External Medical Summary ---
Author Name Unknown Address [facility] N [facility] [place] [address] Phone Organization K01:[address] [place] [address] Laboratory Report Ordering Provider Test Date Status OUSMANE BACK 05/29/2020 11:23:00 Final Observation Date Value Abnormality Reference (Units ) Status Lactic Acid 05/29/2020 12:14 1.8 0.4-2.0 (mm ol/L) Final Performing Location [address] [address]
--- OUTSIDE RECORDS SUMMARY | 2023-05-10 22:24 | External Medical Summary | Summary of Care ---
Author Name Unknown Organization [facility] Address [facility] [place] [address] Care Team Providers Care Info Analyst Name Role Phone Rajwinder Carter DO Primary Care Provider Reason for Visit * Reason Comments Advice Blood Sugar 406 Encounter Details Date Type Department Care Team Description 05/28/2020 Telephone [facility] [address], [place] [id number] Rajwinder Carter DO [address], [place] [phone] Advice (Blood Sugar 406) Allergies Active Allergy [...] 120 Vial 11 10/02/2019 Active nystatin (NYSTOP) 048746 UNIT/GM powder Apply topically to affected area [...] breakfast. 90 Cap 3 05/04/2020 Active PEG 6519-ZSc-BbGmk-NaCl- NaSulf (GOLYTELY) 227.1 g PACK Drink 2 [...] SYSTM) MISC Freestyle Xochitl 2 14-day Sensor (070712) (2 sensors=28 day/1-month supply) 2 Each 1 05/26/2020 Active Continuous Blood Gluc Barrel Driller (FREESTYLE XOCHITL 2 READER SYSTM) KORTNEY Freestyle Xochitl 2 14-day Barrel Driller (655615) 1 Package 0 05/26/2020 Active documented as [...] pain 01/24/2012 01/17/2017 Genetic Sleep Disorder Research Other*[id number] 05/13/2011 04/07/2016 Obstructive sleep apnea 01/18/2011 12/27/19 [...] high, 360, dizziness Caller was transferred to [facility] at the nurse line. * Telephone Encounter - Shahnaz Starr LPN - 05/28/2020 5:56 PM EDT Patient was trying to contact [place] office to return their call and was transferred here. Patient was given the [place] office number to call. * Telephone Encounter - Jovana Lambert RN - 05/28/2020 5:43 PM EDT Called Mobile Mail box full unable to leave a message * Telephone Encounter - Rajwinder Carter DO - 05/28/2020 5:27 PM EDT Pt was supposed to fern picker insulin upon her discharge on 05/26 [...] office spoke Pura advised to send message [phone] * Telephone Encounter - Quyen Starks OSA - 05/28/2020 4:42 PM EDT Reason for patient's call: Blood Sugar 406 Caller was transferred to [facility] at the nurse line. documented in this encounter Plan of Treatment Upcoming Encounters Date Type Specialty Care Team Description 05/29/2020 Cardiac Studies Cardiac Studies Dobutamine [address] [place], [place] [id number] 06/01/2020 Office Visit Pharmacy [facility] [address], [place] [address] 06/01/2020 Office Visit Family Medicine Alexandra Caceres, DO [address] [place] [address] [phone] 06/03/2020 Hospital Encounter Surgery Janis Hatch, DO [address] [place] [address] [phone] 06/03/2020 Surgery Surgery Janis Hatch, DO [address] [place] [facility] [place] [address] [phone] COLONOSCOPY FLEXIBLE PROXIMAL DIAGNOSTIC 06/09/2020 Office Visit Wound Care Prakash Honeycutt PA-C [address] [place] [id number] 06/09/2020 Office Visit Endocrinology Alberta Duque PA-C [address] [place], [place] [address] 06/10/2020 Office Visit Gynecology Obstetrics Marie Myrick MD [address] [place] [id number] 06/23/2020 Office Visit Gastroenterology Lyssa Stout CRNP [address] [facility] [place] [address] [phone] 06/30/2020 Office Visit Hematology Oncology Tono Sanchez MD [address] [facility] [address] [phone] 07/29/2020 Office Visit Family Medicine Rajwinder Carter DO [address] [facility], [place] [address] 07/31/2020 Nutrition Services Gastroenterology Melissa Omalley, RDN [address] [place] [address] 09/03/2020 Imaging Radiology Health Maintenance Due Date Last Done Comments DIABETES-EYE EXAM 06/12/2019 06/12/2018, , 06/12/2018, Additional history exists PAP SMEAR-EVERY 3 YRS,AGES 21-65 10/10/2019 10/10/2016, 07/02/2014, 04/16/2013, Additional history exists DIABETES-URINE MICROALBUMIN EVERY 12 MONTHS 01/12/2020 01/11/2019, 08/24/2018, 07/19/2018, Additional history exists Influenza Vaccine (FLU shot) (#1) 2020 06/05/2019, 06/05/2019, 05/16/2018, Additional history exists DXA-SCREENING EVERY 7 YRS-USE SMARTSET# 2850 TO ORDER 2020 Pneumococcal Vaccine: 65+ Years [...] Documents on File Type Date Recorded Patient Food And Nutrition Services Assistant Expl anation Advanced Directive service a [...] Agents on File Name Relationship Healthcare Agent [facility] p Communication Syed Bustos Spouse Emergency Contact
--- OUTSIDE RECORDS SUMMARY | 2023-05-10 22:24 | External Medical Summary ---
Author Name Unknown Address [facility] [address] [place] [id number] Phone Organization K01:[place] [id number] Laboratory Report Ordering Provider Test Date Status OUSMANE BACK 05/29/2020 11:23:00 Final Observation Date Value Abnormality Reference (Units ) Status Lipase 05/29/2020 12:34 16 13-60 (U/L) F inal Performing Location [address] [address]
--- OUTSIDE RECORDS SUMMARY | 2023-05-10 22:24 | External Medical Summary | Summary of Care ---
Author Name Unknown Organization [place] [address] Care Team Providers Care Direct Casting Operator Name Role Phone Rajwinder Carter DO Primary Care Provider + [phone] Reason for Referral * Evaluate & Treat - Unlimited Visits (Within 10 days (routine)) Status Reason Specialty Diagnoses / Procedures Referred By Contact Referred To Contact Pending Review Specialty Services Required HOME CARE / Home Care Diagnoses Diabetic ulcer of toe associated with type 2 diabetes mellitus, unspecified laterality, unspecified ulcer stage ([facility]) Rajwinder Carter DO [address] [place] [address] * Evaluate & Treat - Unlimited Visits (Within 3 days (urgent)) Status Reason Specialty Diagnoses / Procedures Referred By Contact Referred To Contact Pending Review Specialty Services Required Pharmacist / Pharmacy Diagnoses Type 2 diabetes mellitus with hemoglobin A1c goal of less than 7.0% ([facility]) Rajwinder Carter DO [address] [place] [address] Reason for Visit * Reason Comments Advice Encounter Details Date Type Department Care Team Description 05/27/2020 Telephone Ancillary Department, [address] [address] Rosio Hunter RN Advice Allergies [...] 120 Vial 11 10/02/2019 Active nystatin (NYSTOP) 102027 UNIT/GM powder Apply topically to affected area [...] 7.0% ([facility]) Inject 1 syringeful once weekly 6 mL [...] breakfast. 90 Cap 3 05/04/2020 Active PEG 4696-VYu-QwTsg-NaCl- NaSulf (GOLYTELY) 227.1 g PACK Drink 2 [...] 7.0% ([facility]) Use with lantus daily 100 Each 3 [...] SYSTM) MISC Freestyle Xochitl 2 14-day Sensor (636061) (2 sensors=28 day/1-month supply) 2 Each 1 05/26/2020 Active Continuous Blood Gluc String Top Sealer (FREESTYLE XOCHITL 2 READER SYSTM) KORTNEY Freestyle Xochitl 2 14-day String Top Sealer (654899) 1 Package 0 05/26/2020 Active documented as [...] pain 01/24/2012 01/17/2017 Genetic Sleep Disorder Research Other*[id number] 05/13/2011 04/07/2016 Obstructive sleep apnea 01/18/2011 12/27/19 [...] Telephone Encounter - Rosio Hunter RN - 05/28/2020 10:11 AM EDT Spoke to patient this am. They did product picker Novolog last evening but did not start using it.He states he will start it today. He has not taking patient bsg yet today due to her still sleeping. Advised to call if he has any questions or concern. Informed him that Dr. Carter would like homehealth to start with patient. in agree ance. had no preference on home care. Patient had been established with [facility] in the past. Referral faxed to them. [facility] to help with diabetes management and Freestyle josh. * Telephone Encounter - Indira Hudson RP - 05/28/2020 9:49 AM EDT Noted by MTM. Will address referral Indira Hudson [facility], Pharm D, BCACP Clinical Pharmacist 05/28/20 9:49 [...] from Pharmacy. Advised that they need to product picker Novolog and start using ihsan. Also ordered Freestyle Xochitl for monitoring which they need to product picker from Pharmacy also. MTM referral placed for instruction on Novolog and Frestyle Xochitl. documented in this encounter Plan of Treatment Upcoming Encounters Date Type Specialty Care Team Description 05/29/2020 Cardiac Studies Cardiac Studies Dobutamine [address] [facility] [place] [address] 06/01/2020 Office Visit Family Medicine Alexandra Caceres, DO [address] [facility] [address] [phone] 06/03/2020 Hospital Encounter Surgery Janis Hatch, DO [address] [place] [address] [phone] 06/03/2020 Surgery Surgery Janis Hatch, [address] [place] [address] [phone] COLONOSCOPY FLEXIBLE PROXIMAL DIAGNOSTIC 06/10/2020 Office Visit Gynecology Obstetrics Marie Myrick MD [address] [place] [address] 06/11/2020 Telemedicine Wound Care Prakash Honeycutt PA-C [address] [place] [address] 06/23/2020 Office Visit Gastroenterology Lyssa Stout CRNP [address] [place] [address] 06/30/2020 Office Visit Hematology Oncology Tono Sanchez MD [address] [place] [address] [phone] 07/29/2020 Office Visit Family Medicine Rajwinder Carter DO [address] [place] [address] 07/31/2020 Nutrition Services Gastroenterology Melissa Omalley, [place] [address] [place] [address] 09/03/2020 Imaging Radiology Scheduled Referrals [...] Documents on File Type Date Recorded Patient Heel Buffer Expl anation Advanced Directive service a [...]
--- OUTSIDE RECORDS SUMMARY | 2023-05-10 22:24 | External Medical Summary ---
Author Name Unknown Address [facility] [place] [address] Phone Organization K01:[place] [id number] Laboratory Report Ordering Provider Test Date Status OUSMANE BACK 05/29/2020 11:23:00 Final Observation Date Value Abnormality Reference (Units ) Status BNP, Pro-hormone 05/29/2020 12:34 87 0-299 (pg/mL) Final Performing Location [address] [address]
--- OUTSIDE RECORDS SUMMARY | 2023-05-10 22:25 | External Medical Summary ---
Author Name Unknown Address Unknown Organization R:IT USE ONLY!!! Laboratory Report Ordering Provider Test Date Status UBALDOFRANKIEANDRZEJ AshtonRI 05/26/2020 07:26:00 Final Observation Date Value Abnormality Reference (Units ) Status Glucose Point of Care 05/26/2020 08:01 230 Above high normal 70-120 (mg/dL) Final Performing Location IT USE ONLY!!!
--- OUTSIDE RECORDS SUMMARY | 2023-05-10 22:25 | External Medical Summary | Summary of Care ---
Author Name Unknown Organization [place] [address] Care Team Providers Care Refractory Furnace Designer Name Role Phone Rajwinder Lara DO Primary Care Provider [phone] Reason for Visit * Reason Comments eRx-Medication Refill Encounter Details Date Type Department Care Team Description 05/23/2020 Refill [facility] [address], [place] [id number] Rajwinder Lara DO [address] [place] [address] [phone] Hypokalemia Allergies Active Allergy Reactions Severity Noted Date Comments Adhesive Tape Itching 04/29/2020 Penicillins Rash 02/12/2008 documented as of this encounter (statuses as of 05/25/2020) Medications Medication Sig Dispensed Refills Start Date [...] for Wheezing. 120 Vial 11 0 Active Semaglutide, 1 MG/DOSE, (OZEMPIC, 1 MG/DOSE,) 2 MG/1.5ML SOPN Inject 1 mg under the skin once a week. DX:E11.9 2 Pre-filled Pen Syringe Dosing Unit 5 0 Active nystatin (NYSTOP) 454951 UNIT/GM powder Apply topically to affected area [...] 3 0 Active Dulaglutide (TRULICITY) 1.5 MG/0.5ML SOPNIndications:T ype 2 diabetes mellitus with hemoglobin A1c goal of less than 7.0% ([facility]) Inject 1 syringeful once weekly 6 mL 1 0 Active atorvaSTATin (LIPITOR) 40 MG TabletIndications :Dyslipidemia, goal LDL below 70 TAKE 1 TABLET BY MOUTH EVERY NIGHT AT BEDTIME 90 Tab 1 0 Active furosemide (LASIX) 20 MG TabletIndications :Localized edema,Venous stasis dermatitis of both lower extremities TAKE 1 TABLET BY MOUTH ONCE DAILY NEEDED FOR EDEMA 30 Tab 5 0 Active levothyroxine (LEVOXYL) 200 MCG Tablet Take 1 Tab by mouth daily. 90 Tab 3 0 Active pantoprazole (PROTONIX) 20 MG TBECIndications:G astroesophageal [...] ONCE DAILY 90 Cap 1 0 Active mupirocin calcium (BACTROBAN) 2 % ointment Apply topically to affected area 2 times a day. Apply to right toe affected area cover with dressing. 22 g 0 0 Active silver sulfadiazine (SILVADENE) 1 % creamIndications: Open wound of right great toe, subsequent encounter Apply topically to affected area daily. Apply to wound daily with dressing 50 g 3 0 Active linaCLOtide (LINZESS) 290 MCG Capsule Take 1 Cap by mouth daily before breakfast. 90 Cap 3 0 Active PEG 3155-LMc-WdIlw-Na Cl-NaSulf (GOLYTELY) 227.1 g PACK Drink 2 liters two days before colonoscopy and 2 liters the day before colonoscopy 1 Each 0 0 Active MetFORMIN (GLUCOPHAGE) 1000 MG TabletIndications :Type 2 diabetes mellitus with hemoglobin A1c goal of less than 7.0% ([facility]) Take 1 Tab by mouth 2 times a day. 180 Tab 1 0 Active nadolol (CORGARD) 20 MG Tablet [...] AT BEDTIME 90 Tab 1 0 Active Insulin Pen Needle (BD PEN NEEDLE MINI U/F) 31G X 5 MMIndications:Typ e 2 diabetes mellitus with hemoglobin A1c goal of less than 7.0% ([facility]) Use with lantus daily 100 Each 3 0 Active potassium chloride ER 10 MEQ TBCRIndications:H ypokalemia TAKE 1 TABLET BY MOUTH ONCE DAILY WITH FOOD 90 Tab 3 0 Active sulfamethoxazole- trimethoprim DS (BACTRIM DS) 800-160 MG per tablet Take 1 Tab by mouth 2 times a day for 5 days. 10 Tab 0 0 05/28/20 20 Active potassium chloride ER 10 MEQ TBCRIndications:H ypokalemia TAKE 1 TABLET EVERY DAY WITH FOOD 90 Tab 1 0 05/25/20 20 Discontinued documented as of this encounter (statuses as of 05/25/2020) Active Problems Problem Noted Date Complicated UTI (urinary tract infection ) 04/23/2020 Cellulitis of right toe 04/18/2020 Cellulitis of [...] as of this encounter (statuses as of 05/25/2020) Resolved Problems Problem Noted Date Resolved Date [...] pain 01/24/2012 01/17/2017 Genetic Sleep Disorder Research Other*[id number] 05/13/2011 04/07/2016 Obstructive sleep apnea 01/18/2011 12/27/19 [...] as of this encounter (statuses as of 05/25/2020) Immunizations Name Administration Dates Next Due HEP [...] you have serious difficulty h earing? No 05/05/2020 Are you blind or do you have serious difficulty seeing, even when wearing glasses? No 05/05/2020 Do you have serious difficul ty walking or climbing stairs? 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 05/05/2020 Do you have difficulty dress ing or bathing? 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 05/05/2020 Because of a physical, menta l, or emotional condition, do you have difficulty doing errands alone such as visiting a doctor s office or shopping? (15 years old or older) Yes 05/05/20 20 Cognitive Status Response Date of Assessm ent Because of a physical, menta l, or emotional condition, do you have serious difficulty concentrating, remembering, or making decisions? (5 years old or older No 05/05/2020 documented as of this encounter Miscellaneous Notes * Telephone Encounter - Erica Ferrera [facility] - 05/25/2020 1:29 PM EDT Signed Prescriptions: Disp Refills potassium chloride ER 10 MEQ TBCR 90 Tab 3 Sig: TAKE 1 TABLET BYMOUTH ONCE DAILY WITH FOODAuthorizing Provider: RAJWINDER LARA User: ERICA FERRERA------ documented in this encounter Plan of Treatment Upcoming Encounters Date Type Specialty Care Team Description 05/26/2020 Office Visit Family Medicine Rajwinder Lara DO [address] [facility] [place] [address] 05/28/2020 Office Visit Gastroenterology Lyssa Stout CRNP [address] [facility] [address] 05/29/2020 Cardiac Studies Cardiac Studies Dobutamine [address] [place], [place] [address] 06/03/2020 Hospital Encounter Surgery Janis Hatch, DO [address] [place], [place] [address] [phone] 06/03/2020 Surgery Surgery Janis Hatch, DO [address] [facility], [place] [address] [phone] COLONOSCOPY FLEXIBLE PROXIMAL DIAGNOSTIC 06/10/2020 Office Visit Gynecology Obstetrics Angel Tyreseshahzad Pablo, DO [address] [place], [place] [address] 06/11/2020 Telemedicine Wound Care Prakash Honeycutt PA-C [address] [place], [place] [address] 06/30/2020 Office Visit Hematology Oncology Tono Sanchez MD [address] [place] [address] [phone] 07/29/2020 Office Visit Family Medicine Rajwinder Lara, DO [address] [place] [address] 07/31/2020 Nutrition Services Gastroenterology Melissa Omalley, [place] [address] [facility] [place] [address] 09/03/2020 Imaging Radiology Health Maintenance Due [...] 09/02/2020 09/02/2019, 04/04/2018, 01/18/2017, Additional history exists DIABETES-HGBA1C EVERY 6 MONTHS 10/29/2020 04/28/2020, 02/21/2020, 11/26/2019, Additional history exists DIABETES-FOOT EXAM 11/06/2020 11/06/2019, 0 01/09/2019, 12/26/2017, Additional history exists Yearly B-12 04/25/2021 04/25/2020, [...] on File Type Date Recorded Patient Contracts Administrator 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 Advanced Directive 04/15/2020 12:36 PM Advanced Directive 04/23/2020 8:54 AM Advanced Directive Advanced Directive 05/05/2020 11:52 AM Advanced Directive Advanced Directive 05/22/2020 7:36 AM Advanced Directive Latest Code Status on File Code Status Date Activated Date Inactivated Comments Full Code 05/05/2020 5:31 AM 05/05/2020 11:38 [...] Name Relationship Healthcare Agent [facility] Communication Syed Bustos Spouse Emergency Contact
--- OUTSIDE RECORDS SUMMARY | 2023-05-10 22:25 | External Medical Summary ---
Author Name Unknown Address [facility] N [facility]22 Phone Organization K01:[place] [id number] Laboratory Report Ordering Provider Test Date Status BINA PINEDA 05/25/2020 15:41:00 Final Observation Date Value Abnormality Reference (Units ) Status ESR 05/25/2020 17:42 46 Above high normal 0-20 (mm/hour) Final Performing Location [address] [address]
--- OUTSIDE RECORDS SUMMARY | 2023-05-10 22:25 | External Medical Summary ---
Author Name Unknown Address [facility] N [facility]22 Phone Organization K01:[place] [id number] Laboratory Report Ordering Provider Test Date Status LETA MIRANDAO 05/26/2020 18:05:00 Final Observation Date Value Abnormality Reference (Units ) Status Troponin T 05/26/2020 19:02 8 0-14 (ng/L) Final Performing Location [address] [address]
--- OUTSIDE RECORDS SUMMARY | 2023-05-10 22:25 | External Medical Summary ---
Author Name Unknown Address [address] [place] [address] ) Organization K03:[facility] [address] [place] [address] Laboratory Report Ordering Provider Test Date Status [place] 05/26/2020 16:29:00 Final Observation Date Value Abnormality Reference (Units ) Status Glutamic Acid Decarboxylase 65 Ab 05/29/2020 13:48 <5 <5 (IU/mL) Marry moreland Performing Location [facility] [address] [place], [place] [address]
--- OUTSIDE RECORDS SUMMARY | 2023-05-10 22:25 | External Medical Summary ---
Author Name Unknown Address [facility] N [facility]22 Phone Organization K01:[place] [id number] Laboratory Report Ordering Provider Test Date Status LETA MIRANDAO 05/26/2020 12:48:00 Final Observation Date Value Abnormality Reference (Units ) Status Troponin T 05/26/2020 13:56 10 0-14 (ng/L) Final Performing Location [address] [address]
--- OUTSIDE RECORDS SUMMARY | 2023-05-10 22:25 | External Medical Summary ---
Author Name Unknown Address [facility] [address] [place] [id number] Phone Organization K01:[facility] [address] [place] [id number] Laboratory Report Ordering Provider Test Date Status COLLINS PANG 05/23/2020 20:30:00 Final Observation Date Value Abnormality Reference (Units ) Status Source 05/23/2020 20:33 CLEAN CATCH URINE Final Bacteria identified in Unspecified specimen by Culture 05/24/2020 16:49 LESS THAN 10,000 COLONIES/ML MIXED NORMAL MAYRA Final REPORT STATUS 05/24/2020 16:49 05/24/2020 FINAL Final Performing Location [facility] [address] [facility] [address]
--- OUTSIDE RECORDS SUMMARY | 2023-05-10 22:25 | External Medical Summary ---
Author Name Unknown Address [facility] N [facility] [place] [address] Phone Organization K01:[place] [address] [address] [place] [id number] Laboratory Report Ordering Provider Test Date Status LAZ CRAWLEY 05/26/2020 04:44:00 Final Observation Date Value Abnormality Reference (Units ) Status Albumin 05/26/2020 05:51 3.4 Below low normal 3.8-5.0 (g/dL) Final AST (Aspartate aminotransferase) 05/26/2020 05:51 37 Above high normal 10-35 (U/L) Final Performing Location [address] [address]
--- OUTSIDE RECORDS SUMMARY | 2023-05-10 22:25 | External Medical Summary ---
Author Name Unknown Address [address] [facility] [place] [address] Phone Organization K01:[facility] [address] [facility] [place] [address] Laboratory Report Ordering Provider Test Date Status COLLINS PANG 05/23/2020 19:51:00 Final Observation Date Value Abnormality Reference (Units ) Status WBC, Total 05/23/2020 20:30 3.74 Below low normal 4.00-10.80 (K/uL) Final RBC 05/23/2020 20:30 3.15 Below low normal 3.85-5.15 (M/uL) Final Hemoglobin 05/23/2020 20:30 9.7 Below low normal 12.0-15.3 (g/dL) Final HCT 05/23/2020 20:30 30.7 Below low normal 36.0-45.2 (%) Final MCV 05/23/2020 20:30 97.5 81.5-97.5 (fL) Final MCH 05/23/2020 20:30 30.8 27.0-34.0 (pg) Final MCHC 05/23/2020 20:30 31.6 Below low normal 32.0-36.0 (g/dL) Final RDW 05/23/2020 20:30 15.7 Above high normal 11.5-15.5 (%) Final Platelets 05/23/2020 20:30 89 Below low normal 140-400 (K/uL) Final MPV 05/23/2020 20:30 13.3 Above high normal 6.6-11.1 (fL) Final Nucleated erythrocytes/100 leukocytes [Ratio] in Blood by Automated count 05/23/2020 20:30 2 Above high normal 0 (/100 WBCs) Final Segs 05/23/2020 20:30 57.0 40-75 (%) Final Lymphs % 05/23/2020 20:30 20.9 18-42 (%) Final Monos 05/23/2020 20:30 9.1 1-11 (%) Final Eosinophils 05/23/2020 20:30 7.2 Above high normal 0-6 (%) Final Basos 05/23/2020 20:30 1.3 0-2 (%) Final Immature Granulocyte, Percent 05/23/2020 20:30 4.5 Above high normal 0-2 (%) Final Neutrophils [#/volume] in Blood 05/23/2020 20:30 2.13 1.8-7.7 (K/uL) Final Lymphs, absolute 05/23/2020 20:30 0.78 Below low normal 1.0-4.8 (K/uL) Final Monos, Abs 05/23/2020 20:30 0.34 0.0-1.1 (K/uL) Final Eos, Abs 05/23/2020 20:30 0.27 0.0-0.7 (K/uL) Final Basos, Abs 05/23/2020 20:30 0.05 0.0-0.2 (K/uL) Final Immature Granulocytes, Number 05/23/2020 20:30 0.17 0.0-0.2 (K/uL) Final Performing Location [facility] [address] [facility] [address]
--- OUTSIDE RECORDS SUMMARY | 2023-05-10 22:25 | External Medical Summary ---
Author Name Unknown Address Unknown Organization R:IT USE ONLY!!! Laboratory Report Ordering Provider Test Date Status ANDRZEJ MOORERI 05/25/2020 20:51:00 Final Observation Date Value Abnormality Reference (Units ) Status Glucose Point of Care 05/25/2020 21:07 342 Above high normal 70-120 (mg/dL) Final Performing Location IT USE ONLY!!!
--- OUTSIDE RECORDS SUMMARY | 2023-05-10 22:25 | External Medical Summary | Summary of Care ---
Author Name Unknown Organization [place] [address] Care Team Providers Care Graphotype Operator Name Role Phone Rajwinder Lara DO Primary Care Provider Reason for Visit * Reason Comments Medication Refill Encounter Details Date Type Department Care Team Description 05/20/2020 Refill [place] [address] [place], [place] [id number] Rajwinder Lara DO [address] [place] [address] [phone] Type 2 diabetes mellitus with hemoglobin A1c goal of less than 7.0% (HCC) Allergies Active Allergy Reactions Severity Noted Date Comments Adhesive Tape Itching 04/29/2020 Penicillins Rash 02/12/2008 documented as of this encounter (statuses as of 05/22/2020) Medications Medication Sig Dispensed Refills Start Date [...] for Wheezing. 120 Vial 11 10/02/2019 Active Semaglutide, 1 MG/DOSE, (OZEMPIC, 1 MG/DOSE,) 2 MG/1.5ML SOPN Inject 1 mg under the skin once a week. DX:E11.9 2 Pre-filled Pen Syringe Dosing Unit 5 10/07/2019 Active nystatin (NYSTOP) 348019 UNIT/GM powder Apply topically to affected area [...] per day. 100 Each 3 11/19/2019 Active potassium chloride ER 10 MEQ TBCRIndications:H ypokalemia TAKE 1 TABLET EVERY DAY WITH FOOD 90 Tab 1 12/04/2019 Active SM ASPIRIN ADULT LOW STRENGTH 81 [...] ONCE DAILY 90 Cap 1 04/22/2020 Active mupirocin calcium (BACTROBAN) 2 % ointment Apply topically to affected area 2 times a day. Apply to right toe affected area cover with dressing. 22 g 0 04/25/2020 Active silver sulfadiazine (SILVADENE) 1 % creamIndications: Open wound of right great toe, subsequent encounter Apply topically to affected area daily. Apply to wound daily with dressing 50 g 3 04/30/2020 Active linaCLOtide (LINZESS) 290 MCG Capsule Take 1 Cap by mouth daily before breakfast. 90 Cap 3 05/04/2020 Active PEG 3759-KQv-QzLyw-Na Cl-NaSulf (GOLYTELY) 227.1 g PACK Drink 2 [...] ONCE DAILY 180 Tab 1 05/12/2020 Active Insulin Pen Needle (BD PEN NEEDLE MINI U/F) 31G X 5 MMIndications:Typ e 2 diabetes mellitus with hemoglobin A1c goal of less than 7.0% (HCC) Use with lantus daily 100 Each 3 05/22/2020 Active BD PEN NEEDLE MINI U/F 31G X 5 MMIndications:Typ e 2 diabetes mellitus with hemoglobin A1c goal of less than 7.0% (HCC) use with basaglar at bedtime 100 Each 10 10/29/2019 0 Discontinue d(Refill) documented as of this encounter (statuses as of 05/22/2020) Active Problems Problem Noted Date Complicated UTI [...] as of this encounter (statuses as of 05/22/2020) Resolved Problems Problem Noted Date Resolved Date [...] pain 01/24/2012 01/17/2017 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 05/13/2011 04/07/2016 Obstructive sleep apnea 01/18/2011 12/27/19 [...] as of this encounter (statuses as of 05/22/2020) Immunizations Name Administration Dates Next Due HEP [...] encounter Miscellaneous Notes * Telephone Encounter - Aime Webber RPh - 05/22/2020 8:45 AM EDT Signed Prescriptions: Disp Refills Insulin Pen Needle (BD PEN NEEDLE MINI U/F*100 Ea*3 Sig: Use with lantus dailyAuthorizing Provider: RAJWINDER LARA User: AIME WEBBER * Telephone Encounter - Rajwinder Niño, seo executive - 05/20/2020 2:20 PM EDT Pending Prescriptions: Disp Refills Insulin Pen Needle (BD PEN NEEDLE MINI U/*100 Ea*10 Sig: Use with lantus daily Last Office/Telemedicine Visit: 04/28/2020 Next Office Visit: 07/29/2020 Scheduled Provider(s): Rajwinder Lara DO If no future appointments scheduled, and last appointment is greater than a year ago, please schedule patient for a follow-up appointment Last date the medication was ordered: 10/29/19 Pharmacy: [facility] # [id number] Is this request for a controlled substance?No Urine Drug Screen:No results found. However, due to the size of the patient record, not all encounters were searched. Please check Results Review for a complete set of results. Patient Phone Numbers Labs: Lab Results Component Value Date/Time CREAT 0.7 05/13/2020 06:29 PM POTASSIUM 4.2 05/13/2020 06:29 PM TSH 5.15 (H) 02/21/2020 11:43 AM LDLCALC 43 04/05/2019 06:40 AM LDLDIRECT 46 02/21/2020 11:43 AM ALT 35 05/13/2020 06:29 PM HGBA1C 9.9 (H) 04/28/2020 04:37 PM documented in this encounter Plan of Treatment Upcoming Encounters Date Type Specialty Care Team Description 05/26/2020 Office Visit Family Medicine Rajwinder Lara, DO [address] [facility], [place] [id number] 05/28/2020 Office Visit Gastroenterology Lyssa Stout CRNP [address] [place] [address] [phone] 05/29/2020 Cardiac Studies Cardiac Studies Dobutamine [address] [facility] [place] [id number] 06/03/2020 Hospital Encounter Surgery [facility]atch, DO [address] [facility] [address] [phone] 06/03/2020 Surgery Surgery Janis Hatch, DO [address] [facility] [address] [phone] COLONOSCOPY FLEXIBLE PROXIMAL DIAGNOSTIC 06/10/2020 Office Visit Gynecology Obstetrics Alcon Ortiz DO [address] [place] [facility] [place] [address] [phone] 06/11/2020 Telemedicine Wound Care Prakash Honeycutt PA-C [address] [place], [place] [phone] 06/30/2020 Office Visit Hematology Oncology Tono Sanchez MD [address] [facility] [address] [phone] 07/29/2020 Office Visit Family Medicine Rajwinder Lara, DO [address] [facility], [place] [address] [phone] 07/31/2020 Nutrition Services Gastroenterology Melissa Omalley RDN [address] [place] [address] [phone] 09/03/2020 Imaging Radiology Health Maintenance Due Date [...] Documents on File Type Date Recorded 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 Advanced Directive 04/15/2020 12:36 PM Advanced Directive 04/23/2020 8:54 AM Advanced Directive Advanced Directive 05/05/2020 11:52 AM Advanced Directive Advanced Directive 05/22/2020 7:36 AM Latest Code Status on File Code Status [...] File Name Relationship Healthcare Agent [facility] p Communication Syed Bustos Spouse Emergency Contact
--- OUTSIDE RECORDS SUMMARY | 2023-05-10 22:25 | External Medical Summary ---
Author Name Unknown Address [facility] [address] [facility] [place] [address] Phone Organization K01:[facility] [address] [facility] [address] Laboratory Report Ordering Provider Test Date Status LAZ CRAWLEY 05/26/2020 04:44:00 Final Observation Date Value Abnormality Reference (Units ) Status WBC, Total 05/26/2020 05:58 2.92 Below low normal 4.00-10.80 (K/uL) Final RBC 05/26/2020 05:58 2.87 Below low normal 3.85-5.15 (M/uL) Final Hemoglobin 05/26/2020 05:58 8.7 Below low normal 12.0-15.3 (g/dL) Final HCT 05/26/2020 05:58 28.9 Below low normal 36.0-45.2 (%) Final MCV 05/26/2020 05:58 100.7 Above high normal 81.5-97.5 (fL) Final MCH 05/26/2020 05:58 30.3 27.0-34.0 (pg) Final MCHC 05/26/2020 05:58 30.1 Below low normal 32.0-36.0 (g/dL) Final RDW 05/26/2020 05:58 15.6 Above high normal 11.5-15.5 (%) Final Platelets 05/26/2020 05:58 75 Below low normal 140-400 (K/uL) Final MPV 05/26/2020 05:58 14.3 Above high normal 6.6-11.1 (fL) Final Nucleated erythrocytes/100 leukocytes [Ratio] in Blood by Automated count 05/26/2020 05:58 0 0 (/100 WBCs) Final Performing Location [facility] [address] [facility] [address]
--- OUTSIDE RECORDS SUMMARY | 2023-05-10 22:25 | External Medical Summary ---
Author Name Unknown Address [address] [place] [address] Phone Organization K01:[facility] [address] [place] [id number] Laboratory Report Ordering Provider Test Date Status COLLINS PANG 05/23/2020 20:30:00 Final Observation Date Value Abnormality Reference (Units ) Status Color of Urine by Auto 05/23/2020 21:29 STRAW Abnormal YEL Final Clarity, Urine 05/23/2020 21:29 CLEAR CLEAR Final Glucose [Mass/volume] in Urine by Automated test strip 05/23/2020 21:29 1000 Abnormal NEG (mg/dL) Final Bilirubin [Presence] in Urine by Automated test strip 05/23/2020 21:29 NEGATIVE NEG Final Ketones [Mass/volume] in Urine by Automated test strip 05/23/2020 21:29 NEGATIVE NEG (mg/dL) Final Specific gravity, Urine 05/23/2020 21:29 1.030 1.003-1.030 Final Hemoglobin [Presence] in Urine by Automated test strip 05/23/2020 21:29 MODERATE Abnormal NEG Final pH, Urine 05/23/2020 21:29 6.5 5.0-7.5 (units) Final Protein [Mass/volume] in Urine by Automated test strip 05/23/2020 21:29 TRACE Abnormal NEG (mg/dL) Final Urobilinogen [Mass/volume] in Urine by Automated test strip 05/23/2020 21:29 NORMAL NORM (mg/dL) Final Nitrite [Presence] in Urine by Automated test strip 05/23/2020 21:29 NEGATIVE NEG Final Leukocyte esterase [Presence] in Urine by Automated test strip 05/23/2020 21:29 LARGE Abnormal NEG Final Bacteria [#/area] in Urine by Automated count 05/23/2020 21:29 51-100 Abnormal GDE262 (/HPF) Final Leukocytes [#/area] in Urine sediment by Automated count 05/23/2020 21:29 50+ Abnormal U02 (/HPF) Final Erythrocytes [#/area] in Urine sediment by Automated count 05/23/2020 21:29 20-29 Abnormal U02 (/HPF) Final Hyaline casts [#/area] in Urine sediment by Automated count 05/23/2020 21:29 1-4 UM1 (/LPF) Final Performing Location [address] [facility]. [facility] [address]
--- OUTSIDE RECORDS SUMMARY | 2023-05-10 22:25 | External Medical Summary ---
Author Name Unknown Address Unknown Organization R:IT USE ONLY!!! Laboratory Report Ordering Provider Test Date Status BRISEYDA MOORE 05/26/2020 11:58:00 Final Observation Date Value Abnormality Reference (Units ) Status Glucose Point of Care 05/26/2020 12:13 320 Above high normal 70-120 (mg/dL) Final Performing Location IT USE ONLY!!!
--- OUTSIDE RECORDS SUMMARY | 2023-05-10 22:25 | External Medical Summary | Summary of Care ---
Author Name Unknown Organization [place] [address] Care Team Providers Care Metal Extrusion Supervisor Name Role Phone Rajwinder Carter DO Primary Care Provider [phone] Encounter Details Date Type Department Care Team Description 05/26/2020 CardioDiagnostic Study Unspecified Department Jim Perea MD [address] [facility] [place] [address] EKG Report Allergies Active Allergy Reactions Severity Noted Date Comments Adhesive Tape Itching 04/29/2020 Penicillins Rash 02/12/2008 documented as of this encounter (statuses as of 05/27/2020) Medications Medication Sig Dispensed Refills Start Date [...] 120 Vial 11 10/02/2019 Active nystatin (NYSTOP) 918465 UNIT/GM powder Apply topically to affected area [...] breakfast. 90 Cap 3 05/04/2020 Active PEG 4907-TSe-FiWhz-NaCl- NaSulf (GOLYTELY) 227.1 g PACK Drink 2 [...] SYSTM) MISC Freestyle Xochitl 2 14-day Sensor (461326) (2 sensors=28 day/1-month supply) 2 Each 1 05/26/2020 Active Continuous Blood Gluc Wafer Polisher (FREESTYLE XOCHITL 2 READER SYSTM) KORTNEY Freestyle Xochitl 2 14-day Wafer Polisher (952209) 1 Package 0 05/26/2020 Active documented as of this encounter (statuses as of 05/27/2020) Active Problems Problem Noted Date Diabetic ulcer [...] as of this encounter (statuses as of 05/27/2020) Resolved Problems Problem Noted Date Resolved Date [...] pain 01/24/2012 01/17/2017 Genetic Sleep Disorder Research Other*[id number] 05/13/2011 04/07/2016 Obstructive sleep apnea 01/18/2011 12/27/19 [...] as of this encounter (statuses as of 05/27/2020) Immunizations Name Administration Dates Next Due HEP [...] No 05/25/2020 documented as of this encounter Procedure Notes * Bernard Yost MD - 05/26/2020 11:48 AM EDT Associated Order(s): EKG REPORT REASON FOR STUDY: CHEST PAIN CONCLUSIONS: Normal sinus rhythm Low voltage QRS, consider pulmonary disease, pericardial effusion, or normal variant Borderline ECG When compared with ECG of 13-MAY-2020 18:27, NV interval has increased Ventricular Rate: 67 Atrial Rate: 67 NV Interval: 174 QRS Duration: 96 QT/QTc: 446/471 ms P-R-T Vassar: 57 : -8 : 51 degrees documented in this encounter Plan of Treatment Upcoming Encounters Date Type Specialty Care Team Description 05/28/2020 Office Visit Gastroenterology Lyssa Stout CRNP [address] [place] [address] [phone] 05/29/2020 Cardiac Studies Cardiac Studies Dobutamine [address] [facility] [place] [id number] 06/03/2020 Hospital Encounter Surgery Janis Hatch, DO [address] [place] [address] [phone] 06/03/2020 Surgery Surgery Janis Hatch, DO [address] [place] [address] [phone] COLONOSCOPY FLEXIBLE PROXIMAL DIAGNOSTIC 06/03/2020 Office Visit Family Medicine Rajwinder Carter, DO [address] [place], [place] [phone] 06/10/2020 Office Visit Gynecology Obstetrics MyrickMarie day MD [address] [place], [place] [address] 06/11/2020 Telemedicine Wound Care Prakash Honeycutt PA-C [address] [place], [place] [address] 06/30/2020 Office Visit Hematology Oncology Tono Sanchez MD [address] [place] [address] [phone] 07/29/2020 Office Visit [facility] Rajwinder Carter, DO [address] [place], [place] [phone] 07/31/2020 Nutrition Services Gastroenterology Melissa Omalley, RDN [address] [place] [address] [phone] 09/03/2020 Imaging Radiology Health Maintenance Due Date [...] Not on filedocumented as of this encounter Procedures Procedure Name Priority Date/Time Associated Diagnosis Comments EKG REPORT 05/26/2020 11:48 AM EDT documented in this encounter Results * EKG REPORT (05/26/2020 11:48 AM EDT) Specimen Procedure Note Bernard Yost MD - 05/26/2020 11:48 AM EDT REASON FOR STUDY: CHEST PAIN CONCLUSIONS: Normal sinus rhythm Low voltage QRS, consider pulmonary disease, pericardial effusion, ornormal variant Borderline ECG When compared with ECG of 13-MAY-2020 18:27, NV interval has increased Ventricular Rate: 67 Atrial Rate: 67 NV Interval: 174 QRS Duration: 96 QT/QTc: 446/471 ms P-R-T Vassar: 57 : -8 : 51 degrees documented in this encounter Advance Directives Documents on File Type Date Recorded 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
--- OUTSIDE RECORDS SUMMARY | 2023-05-10 22:25 | External Medical Summary ---
Author Name Unknown Address Unknown Organization R:IT USE ONLY!!! Laboratory Report Ordering Provider Test Date Status ANDRZEJ MOORERI 05/26/2020 16:42:00 Final Observation Date Value Abnormality Reference (Units ) Status Glucose Point of Care 05/26/2020 16:49 313 Above high normal 70-120 (mg/dL) Final Performing Location IT USE ONLY!!!
--- OUTSIDE RECORDS SUMMARY | 2023-05-10 22:25 | External Medical Summary ---
Author Name Unknown Address [address] [facility] [place] [address] Phone Organization K01:[facility] [address] [facility] [place] [address] Laboratory Report Ordering Provider Test Date Status LAZ CRAWLEY 05/26/2020 04:44:00 Final Observation Date Value Abnormality Reference (Units ) Status BUN 05/26/2020 05:51 10 6-20 (mg/dL) Final Creatinine 05/26/2020 05:51 0.6 0.5-1.0 (mg/ dL) Final E Glom Filt Rate 05/26/2020 05:51 >60.0 >60 Final Performing Location [facility] [address] [facility] [place] [address]
--- OUTSIDE RECORDS SUMMARY | 2023-05-10 22:25 | External Medical Summary ---
Author Name Unknown Address [address] [facility] [place] [address] Phone Organization K01:[facility] [address] [facility] [place] [address] Laboratory Report Ordering Provider Test Date Status POLYCOLLINS 05/23/2020 19:51:00 Final Observation Date Value Abnormality Reference (Units ) Status BUN 05/23/2020 20:34 10 6-20 (mg/dL) Final Creatinine 05/23/2020 20:34 0.6 0.5-1.0 (mg/ dL) Final E Glom Filt Rate 05/23/2020 20:34 >60.0 >60 Final Performing Location [facility] [address] [facility] [place] [address]
--- OUTSIDE RECORDS SUMMARY | 2023-05-10 22:25 | External Medical Summary ---
Author Name Unknown Address [facility] [place] [address] Phone Organization K01:[facility] [address] [facility] [place] [address] Laboratory Report Ordering Provider Test Date Status BINA PINEDA 05/25/2020 15:41:00 Final Observation Date Value Abnormality Reference (Units ) Status BUN 05/25/2020 16:53 11 6-20 (mg/dL) Final Creatinine 05/25/2020 16:53 0.6 0.5-1.0 (mg/ dL) Final E Glom Filt Rate 05/25/2020 16:53 >60.0 >60 Final Performing Location [facility] [address] [facility] [place] [address]
--- OUTSIDE RECORDS SUMMARY | 2023-05-10 22:25 | External Medical Summary ---
Author Name Unknown Address [address] [place] [address] Phone Organization K01:[place] [address] Laboratory Report Ordering Provider Test Date Status BINA PINEDA 05/25/2020 15:41:00 Final Observation Date Value Abnormality Reference (Units ) Status CRP, low-sensitivity 05/25/2020 16:53 12 Above high normal 0-5 (mg/L) Final Performing Location [place] [id number]
--- OUTSIDE RECORDS SUMMARY | 2023-05-10 22:25 | External Medical Summary ---
Author Name Unknown Address [address] [facility] [place] [address] Phone Organization K01:[facility] [address] [facility] [place] [address] Laboratory Report Ordering Provider Test Date Status BINA PINEDA 05/25/2020 15:41:00 Final Observation Date Value Abnormality Reference (Units ) Status WBC, Total 05/25/2020 16:49 3.03 Below low normal 4.00-10.80 (K/uL) Final RBC 05/25/2020 16:49 3.04 Below low normal 3.85-5.15 (M/uL) Final Hemoglobin 05/25/2020 16:49 9.3 Below low normal 12.0-15.3 (g/dL) Final HCT 05/25/2020 16:49 31.0 Below low normal 36.0-45.2 (%) Final MCV 05/25/2020 16:49 102.0 Above high normal 81.5-97.5 (fL) Final MCH 05/25/2020 16:49 30.6 27.0-34.0 (pg) Final MCHC 05/25/2020 16:49 30.0 Below low normal 32.0-36.0 (g/dL) Final RDW 05/25/2020 16:49 15.5 11.5-15.5 (%) Final Platelets 05/25/2020 16:49 78 Below low normal 140-400 (K/uL) Final MPV 05/25/2020 16:49 14.0 Above high normal 6.6-11.1 (fL) Final Nucleated erythrocytes/100 leukocytes [Ratio] in Blood by Automated count 05/25/2020 16:49 0 0 (/100 WBCs) Final Segs 05/25/2020 16:49 64.7 40-75 (%) Final Lymphs % 05/25/2020 16:49 19.8 18-42 (%) Final Monos 05/25/2020 16:49 8.9 1-11 (%) Final Eosinophils 05/25/2020 16:49 5.3 0-6 (%) Final Basos 05/25/2020 16:49 1.0 0-2 (%) Final Immature Granulocyte, Percent 05/25/2020 16:49 0.3 0-2 (%) Final Neutrophils [#/volume] in Blood 05/25/2020 16:49 1.96 1.8-7.7 (K/uL) Final Lymphs, absolute 05/25/2020 16:49 0.60 Below low normal 1.0-4.8 (K/uL) Final Monos, Abs 05/25/2020 16:49 0.27 0.0-1.1 (K/uL) Final Eos, Abs 05/25/2020 16:49 0.16 0.0-0.7 (K/uL) Final Basos, Abs 05/25/2020 16:49 0.03 0.0-0.2 (K/uL) Final Immature Granulocytes, Number 05/25/2020 16:49 0.01 0.0-0.2 (K/uL) Final Performing Location [facility] [address] [facility] [address]
--- OUTSIDE RECORDS SUMMARY | 2023-05-10 22:25 | External Medical Summary ---
Author Name Unknown Address [facility] [address] Phone Organization K01:[place] [address] [place] [id number] Laboratory Report Ordering Provider Test Date Status LAZ CRAWLEY 05/26/2020 04:44:00 Final Observation Date Value Abnormality Reference (Units ) Status HbA1C 05/26/2020 05:38 11.0 Above high normal 4.0-5 .6 (%) Final Performing Location [place] [address] [address] [facility] [address]
--- OUTSIDE RECORDS SUMMARY | 2023-05-10 22:26 | External Medical Summary ---
Author Name Unknown Address [address] [place] [address] Phone Organization K01:[place] [id number] Laboratory Report Ordering Provider Test Date Status NAWAF LOPEZ 05/13/2020 18:29:00 Final Observation Date Value Abnormality Reference (Units ) Status BNP, Pro-hormone 05/13/2020 19:28 48 0-299 (pg/mL) Final Performing Location [place] [id number]
--- OUTSIDE RECORDS SUMMARY | 2023-05-10 22:26 | External Medical Summary ---
Author Name Unknown Address [facility] [place] [address] Phone Organization K01:[place] [address] [place] [id number] Laboratory Report Ordering Provider Test Date Status NAWAF LOPEZ 05/13/2020 18:29:00 Final Observation Date Value Abnormality Reference (Units ) Status Lactic Acid 05/13/2020 19:52 1.5 0.4-2.0 (mm ol/L) Final Performing Location [address] [address]
--- OUTSIDE RECORDS SUMMARY | 2023-05-10 22:26 | External Medical Summary | Summary of Care ---
Author Name Unknown Organization [facility] Address [facility] [place] [address] Care Team Providers Care Forestry Aid Technician Name Role Phone JohnbrianRajwinder thacker Primary Care Provider Reason for Visit * Reason Comments Medication Pre-auth linzess Encounter Details Date Type Department Care Team Description 05/04/2020 Telephone Gastroenterology, [facility] [address] [facility] [place] [address] Inocente Gonzalez CRNP [facility] [place] [address] Medication Pre-auth (linzess) Allergies Active Allergy Reactions Severity Noted Date Comments Adhesive Tape Itching 04/29/2020 Penicillins Rash 02/12/2008 documented as of this encounter (statuses as of 05/12/2020) Medications Medication Sig Dispensed Refills Start Date [...] Dosing Unit 5 10/07/2019 Active nystatin (NYSTOP) 690048 UNIT/GM powder Apply topically to affected area 3 times a day. 60 g 1 10/16/2019 Active BD PEN NEEDLE MINI U/F 31G X 5 MMIndications:Typ e 2 diabetes mellitus with hemoglobin A1c goal of less than 7.0% (HCC) use with basaglar at bedtime 100 Each 10 10/29/2019 Active Albuterol Sulfate (ALBUTEROL HFA) 108 (90 BASE) MCG/ACT inhalerIndication s:Intermittent asthma with reliever use up to twice per week without complication Inhale 2 Puffs by mouth every 4 hours as needed for Cough or Wheezing. With spacer 16 g 1 11/06/2019 Active gabapentin (NEURONTIN) 300 MG Capsule One pill in am, one midday, two in pm, 180 Cap 5 11/07/2019 Active nadolol (CORGARD) 20 MG Tablet Take 2 Tabs by mouth daily. 180 Tab 1 11/07/2019 Active ferrous sulfate (FEOSOL) 325 (65 FE) MG Tablet Take 1 Tab by mouth 2 times a day. 60 Tab 5 11/14/2019 Active Blood Glucose Monitoring Suppl (BLOOD GLUCOSE [...] ONCE DAILY 90 Tab 3 12/04/2019 Active traZODone (DESYREL) 50 MG TabletIndications :Sleep disturbances Take 1 Tab by mouth at bedtime. 90 Tab 1 12/04/2019 Active escitalopram (LEXAPRO) 20 MG TabletIndications :Recurrent major depressive disorder, in partial remission (HCC) Take 1 Tab by mouth daily. 90 Tab 1 12/04/2019 Active Dulaglutide (TRULICITY) 1.5 MG/0.5ML SOPNIndications:T [...] ONCE DAILY 90 Cap 1 04/22/2020 Active cyclobenzaprine (FLEXERIL) 10 MG Tablet Take 1 Tab by mouth every night at bedtime. 30 Tab 0 04/22/2020 Active mupirocin calcium (BACTROBAN) 2 % [...] breakfast. 90 Cap 3 05/04/2020 Active PEG 4000-NDv-SlCce-Na Cl-NaSulf (GOLYTELY) 227.1 g PACK Drink 2 liters two days before colonoscopy and 2 liters the day before colonoscopy 1 Each 0 05/04/2020 Active MetFORMIN (GLUCOPHAGE) 1000 MG TabletIndications :Type 2 diabetes mellitus with hemoglobin A1c goal of less than 7.0% (HCC) TAKE 1 TABLET BY MOUTH TWICE DAILY 180 Tab 1 01/06/2020 0 Discontinue d(Refill) fluconazole (DIFLUCAN) 200 MG Tablet Take 2 Tabs by mouth daily. 10 Tab 0 04/26/2020 0 Discontinue d(End of Procedure) documented as of this encounter (statuses as of 05/12/2020) Active Problems Problem Noted Date Complicated UTI [...] as of this encounter (statuses as of 05/12/2020) Resolved Problems Problem Noted Date Resolved Date [...] pain 01/24/2012 01/17/2017 Genetic Sleep Disorder Research Other*[id number] 05/13/2011 04/07/2016 Obstructive sleep apnea 01/18/2011 12/27/19 [...] as of this encounter (statuses as of 05/12/2020) Immunizations Name Administration Dates Next Due HEP [...] or suspected to have Coronavirus / COVID-19? Unable to assess 2020 8:39 AM EDT documented as of this encounter Functional [...] No 04/23/2020 documented as of this encounter Miscellaneous Notes * Telephone Encounter - Brianne Triana RN - 05/12/2020 11:10 AM EDT Added to auth encounter. * Telephone Encounter - Jarett Webber RPh - 05/11/2020 3:26 PM EDT PA denied by insurance. Thanks, Jarett Webber PharmD Clinical Pharmacist Telepharmacy [phone] 05/11/2020,3:27 PM * Telephone Encounter - Jarett Webber RPh - 05/11/2020 1:38 PM EDT PA already in process on CMM, ervin: [id number], awaiting response. Thanks, Jarett Webber PharmD Clinical Pharmacist Telepharmirvin [phone] 05/11/2020,1:39 PM * Telephone Encounter - Devorah Duque PHARM Tech - 05/11/2020 1:05 PM EDT Pt calling to check on status of prior auth. Caller can be reached at [phone]. Advised pt it is the insurance that needs the documentation as she though did not send the prescription. Thank You, Devorah Duque Cpht Spooling Machine Operator Medialetspharmacy 05/11/2020, 1:05 PM * Telephone Encounter - Florinda Stevenson CPhT - 05/04/2020 3:58 PM EDT Pharmacy calling to inform doctor that the pt's insurance will not pay for this medication without a completed prior authorization. . Please complete with the following information: Patient name: Shaina Butsos ID number: [id number] BIN number: [id number] PCN number: [id number] Group number: [id number] Subscriber name: Shaina Bustos Primary or Secondary Insurance:Primary Medication: Linzess Reason for Request: needs PA Pharmacy: [facility] plan and phone number: Mobile Captain [phone] What alternative medications does the pharmacy have in stock?: n/a List of medications pt has tried and failed: n/a Thank you, Florinda Stevenson CPhT Spooling Machine Operator AdAltaacy 05/05/2020, 10:11 AM documented in this encounter Plan of Treatment Upcoming Encounters Date Type Specialty Care Team Description 05/15/2020 Appointment Radiology 05/28/2020 Office Visit Gastroenterology Lyssa Stout CRNP [address] [place] [address] [phone] 06/03/2020 Hospital Encounter Surgery Janis Hatch DO [address] [place] [address] [phone] 06/03/2020 Surgery Surgery Janis Hatch, [address] [address] [phone] COLONOSCOPY FLEXIBLE PROXIMAL DIAGNOSTIC 06/04/2020 Office Visit General Surgery Carter Luong MD [address] [place] [address] [phone] 06/10/2020 Office Visit Gynecology Obstetrics Alcon Ortiz, DO [address] [place] [address] [phone] 06/11/2020 Telemedicine Wound Care Prakash Honeycutt PA-C [address] [place], [place] [id number] 06/30/2020 Office Visit Hematology Oncology Tono Sanchez MD [address] [place] [address] [phone] 07/29/2020 Office Visit Family Medicine Rajwinder Carter DO [address] [place], [place] [address] 07/31/2020 Nutrition Services Gastroenterology Melissa Omalley, RDN [address] [place] [address] [place] [address] [phone] 09/03/2020 Imaging Radiology Health Maintenance Due Date [...] on File Type Date Recorded Patient Core Sticker 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 Advanced Directive 04/15/2020 12:36 PM Advanced Directive 04/23/2020 8:54 AM Advanced Directive Advanced Directive 05/05/2020 11:52 AM Latest Code Status on File Code [...]
--- OUTSIDE RECORDS SUMMARY | 2023-05-10 22:26 | External Medical Summary ---
Author Name Unknown Address [facility] [address] [place] [id number] Phone Organization K01:[place] [id number] Laboratory Report Ordering Provider Test Date Status NAWAF LOPEZNP 05/13/2020 18:29:00 Final Observation Date Value Abnormality Reference (Units ) Status Body temperature 05/13/2020 18:46 37.0 (degree C) Final pH of Venous blood 05/13/2020 18:46 7.410 7.320-7.430 (units) Final Carbon dioxide [Partial pressure] in Venous blood 05/13/2020 18:46 42.4 40.0-60.0 (mm Hg) Final Oxygen [Partial pressure] in Venous blood 05/13/2020 18:46 40.2 25.0-50.0 (mm Hg) Final Bicarbonate, Venous 05/13/2020 18:46 26.4 23.0-31.0 (mmol/L) Final Base Excess, Venous 05/13/2020 18:46 2.0 0-2.0 (mmol/L) Final Hemoglobin [Mass/volume] in Blood by Oximetry 05/13/2020 18:46 10.2 Below low normal 12.0-15.3 (g/dL) Final Oxyhemoglobin, Venous (FO2HB) 05/13/2020 18:46 70.0 40.0-85.0 (% total Hgb) Final Carboxyhemoglobin 05/13/2020 18:46 1.3 0-1.5 (% total Hgb) Final Performing Location [address] [address]
--- OUTSIDE RECORDS SUMMARY | 2023-05-10 22:26 | External Medical Summary | Summary of Care ---
Author Name Unknown Organization [place] [address] Care Team Providers Care Interior Specialist Name Role Phone JohnbrianRajwinder thacker Primary Care Provider Reason for Visit * Reason Comments eRx-Medication Refill Encounter Details Date Type Department Care Team Description 05/11/2020 Refill Gastroenterology, [facility] 132 [facility] [place] [address] Lyssa Saxena CRNP 132 [place] [address] [phone] Allergies Active Allergy Reactions Severity Noted Date [...] Dosing Unit 5 0 Active nystatin (NYSTOP) 344651 UNIT/GM powder Apply topically to affected area 3 times a day. 60 g 1 0 Active BD PEN NEEDLE MINI U/F 31G X 5 MMIndications:Typ e 2 diabetes mellitus with hemoglobin A1c goal of less than 7.0% (HCC) use with basaglar at bedtime 100 Each 10 0 Active Albuterol Sulfate (ALBUTEROL HFA) 108 (90 BASE) MCG/ACT inhalerIndication s:Intermittent asthma with reliever use up to twice per week without complication Inhale 2 Puffs by mouth every 4 hours as needed for Cough or Wheezing. With spacer 16 g 1 0 Active gabapentin (NEURONTIN) 300 MG Capsule One pill in am, one midday, two in pm, 180 Cap 5 0 Active ferrous sulfate (FEOSOL) 325 (65 FE) MG Tablet Take 1 Tab by mouth 2 times a day. 60 Tab 5 0 Active Blood Glucose Monitoring Suppl (BLOOD GLUCOSE MONITOR SYSTEM) w/Device KIT Use to test once per day. 1 Kit 0 0 Active Glucose Blood (BLOOD GLUCOSE TEST) STRP Use to test once per day. 100 Strip 3 0 Active Lancets MISC Use to test once per day. 100 Each 3 0 Active potassium chloride ER 10 MEQ TBCRIndications:H ypokalemia TAKE 1 TABLET EVERY DAY WITH FOOD 90 Tab 1 0 Active SM ASPIRIN ADULT LOW STRENGTH 81 MG TBEC TAKE 1 TABLET BY MOUTH ONCE DAILY 90 Tab 3 0 Active traZODone (DESYREL) 50 MG TabletIndications :Sleep disturbances Take 1 Tab by mouth at bedtime. 90 Tab 1 0 Active escitalopram (LEXAPRO) 20 MG TabletIndications :Recurrent major depressive disorder, in partial remission (HCC) Take 1 Tab by mouth daily. 90 Tab 1 0 Active Dulaglutide (TRULICITY) 1.5 MG/0.5ML SOPNIndications:T [...] ONCE DAILY 90 Cap 1 0 Active cyclobenzaprine (FLEXERIL) 10 MG Tablet Take 1 Tab by mouth every night at bedtime. 30 Tab 0 0 Active mupirocin calcium (BACTROBAN) 2 % [...] breakfast. 90 Cap 3 0 Active PEG 6864-SYf-ErLxh-Na Cl-NaSulf (GOLYTELY) 227.1 g PACK Drink 2 [...] ONCE DAILY 180 Tab 1 0 Active nadolol (CORGARD) 20 MG Tablet Take 2 Tabs by mouth daily. 180 Tab 1 0 05/12/20 20 Discontinued documented as of this encounter [...] pain 01/24/2012 01/17/2017 Genetic Sleep Disorder Research Other*[id number] 05/13/2011 04/07/2016 Obstructive sleep apnea 01/18/2011 12/27/19 [...] Miscellaneous Notes * Telephone Encounter - Lyssa Saxena CRNP - 05/12/2020 12:03 PM EDT Signed Prescriptions: Disp Refills nadolol (CORGARD) 20 MG Tablet 180 Tab1 Sig: TAKE 2 TABLETS BY MOUTH ONCE DAILY Authorizing Provider: LYSSA SAXENA * Telephone Encounter - Aubrey Reis RPh - 05/12/2020 10:28 AM EDT Pending Prescriptions: Disp Refills nadolol (CORGARD) 20 MG Tablet [Pharmacy M*180 Tab1 Sig: TAKE 2 TABLETS BY MOUTH ONCE DAILY * Telephone Encounter - Aubrey Reis RPh - 05/12/2020 10:28 AM EDT Pending Prescriptions: Disp Refills nadolol (CORGARD) 20 MG Tablet [Pharmacy M*180 Tab1 Sig: TAKE 2 TABLETS BY MOUTH ONCE DAILY Last Office/Telemedicine Visit: 05/04/2020 Next Office Visit: 05/28/2020 Scheduled Provider(s): ZAK Bolton If no future appointments scheduled, and last appointment is greater than a year ago, please schedule patient for a follow-up appointment Last date the medication was ordered: 11/07/19 Pharmacy: [facility] # [id number] Is this request for a controlled substance?No Urine Drug Screen:No results found. However, due to the size of the patient record, not all encounters were searched. Please check Results Review for a complete set of results. Patient Phone Numbers Labs: Lab Results Component Value Date/Time CREAT 0.6 05/04/2020 09:11 PM POTASSIUM 4.5 05/04/2020 09:11 PM TSH 5.15 (H) 02/21/2020 11:43 AM LDLCALC 43 04/05/2019 06:40 AM LDLDIRECT 46 02/21/2020 11:43 AM ALT 29 05/05/2020 06:25 AM HGBA1C 9.9 (H) 04/28/2020 04:37 PM documented in this encounter Plan of Treatment Upcoming Encounters Date Type Specialty Care Team Description 05/15/2020 Appointment Radiology 05/28/2020 Office Visit Gastroenterology Lyssa Saxena CRNP [address] [place] [address] [phone] 06/03/2020 Hospital Encounter Surgery Janis Hatch DO [address] [place] [address] [phone] 06/03/2020 Surgery Surgery Janis Hatch, DO [address] [place] [address] [phone] COLONOSCOPY FLEXIBLE PROXIMAL DIAGNOSTIC 06/04/2020 Office Visit General Surgery Carter Luong MD [address] [place] [address] [phone] 06/10/2020 Office Visit Gynecology Obstetrics Alcon Ortiz, DO [address] [place], [place] [phone] 06/11/2020 Telemedicine Wound Care Prakash Honeycutt PA-Niya [address] [place] [address] 06/30/2020 Office Visit Hematology Oncology Tono Sanchez MD [address] [place] [address] [phone] 07/29/2020 Office Visit Family Medicine Rajwinder Carter, DO [address] [place], [place] [address] 07/31/2020 Nutrition Services Gastroenterology Melissa Omalley, SAMANTHA [address] [place] [address] 09/03/2020 Imaging Radiology Health Maintenance Due Date Last Done Comments DIABETES-EYE EXAM 06/12/2019 06/12/2018, , 06/12/2018, Additional history exists PAP SMEAR-EVERY 3 YRS,AGES 21-65 10/10/2019 10/10/2016, 07/02/2014, 04/16/2013, Additional history exists DIABETES-URINE MICROALBUMIN EVERY 12 MONTHS 01/12/2020 01/11/2019, 08/24/2018, 07/19/2018, Additional history exists Influenza Vaccine (FLU shot) (#1) 2020 06/05/2019, 06/05/2019, 05/16/2018, Additional history exists DXA-SCREENING EVERY 7 YRS-USE SMARTSET# 6598 TO ORDER 2020 Pneumococcal Vaccine: 65+ Years [...] File Type Date Recorded 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
--- OUTSIDE RECORDS SUMMARY | 2023-05-10 22:26 | External Medical Summary ---
Author Name Unknown Address [address] [facility] [place] [address] Phone Organization K01[facility] [address] [facility] [place] [address] Laboratory Report Ordering Provider Test Date Status NAWAF LOPEZ ZAK 05/13/2020 18:29:00 Final Observation Date Value Abnormality Reference (Units ) Status WBC, Total 05/13/2020 19:20 3.19 Below low normal 4.00-10.80 (K/uL) Final RBC 05/13/2020 19:20 3.12 Below low normal 3.85-5.15 (M/uL) Final Hemoglobin 05/13/2020 19:20 9.9 Below low normal 12.0-15.3 (g/dL) Final HCT 05/13/2020 19:20 32.0 Below low normal 36.0-45.2 (%) Final MCV 05/13/2020 19:20 102.6 Above high normal 81.5-97.5 (fL) Final MCH 05/13/2020 19:20 31.7 27.0-34.0 (pg) Final MCHC 05/13/2020 19:20 30.9 Below low normal 32.0-36.0 (g/dL) Final RDW 05/13/2020 19:20 15.6 Above high normal 11.5-15.5 (%) Final Platelets 05/13/2020 19:20 105 Below low normal 140-400 (K/uL) Final MPV 05/13/2020 19:20 13.3 Above high normal 6.6-11.1 (fL) Final Nucleated erythrocytes/100 leukocytes [Ratio] in Blood by Automated count 05/13/2020 19:20 0 0 (/100 WBCs) Final Segs 05/13/2020 19:20 58.3 40-75 (%) Final Lymphs % 05/13/2020 19:20 25.1 18-42 (%) Final Monos 05/13/2020 19:20 8.5 1-11 (%) Final Eosinophils 05/13/2020 19:20 6.9 Above high normal 0-6 (%) Final Basos 05/13/2020 19:20 0.9 0-2 (%) Final Immature Granulocyte, Percent 05/13/2020 19:20 0.3 0-2 (%) Final Neutrophils [#/volume] in Blood 05/13/2020 19:20 1.86 1.8-7.7 (K/uL) Final Lymphs, absolute 05/13/2020 19:20 0.80 Below low normal 1.0-4.8 (K/uL) Final Monos, Abs 05/13/2020 19:20 0.27 0.0-1.1 (K/uL) Final Eos, Abs 05/13/2020 19:20 0.22 0.0-0.7 (K/uL) Final Basos, Abs 05/13/2020 19:20 0.03 0.0-0.2 (K/uL) Final Immature Granulocytes, Number 05/13/2020 19:20 0.01 0.0-0.2 (K/uL) Final Performing Location [facility] [address] [facility]. [facility] [address]
--- OUTSIDE RECORDS SUMMARY | 2023-05-10 22:26 | External Medical Summary | Summary of Care ---
Author Name Unknown Organization [place] [address] Care Team Providers Care International Bank Manager Name Role Phone JohnbrianRajwinder thacker Primary Care Provider Reason for Visit * Reason Comments Follow Up return after Hida sc an Encounter Details Date Type Department Care Team Description 05/21/2020 Office Visit General Surgery, [facility] [address] [place] [address] Carter Luong MD 132 [facility] [place] [id number] Right flank pain* Allergies Active Allergy Reactions Severity Noted Date Comments Adhesive Tape Itching 04/29/2020 Penicillins Rash 02/12/2008 documented as of this encounter (statuses as of 05/21/2020) Medications Medication Sig Dispensed Refills Start Date [...] Dosing Unit 5 10/07/2019 Active nystatin (NYSTOP) 236810 UNIT/GM powder Apply topically to affected area 3 times a day. 60 g 1 10/16/2019 Active BD PEN NEEDLE MINI U/F 31G X 5 MMIndications:Typ e 2 diabetes mellitus with hemoglobin A1c goal of less than 7.0% ([facility]) use with basaglar at bedtime 100 Each [...] breakfast. 90 Cap 3 05/04/2020 Active PEG 7563-THt-GxNdl-Na Cl-NaSulf (GOLYTELY) 227.1 g PACK Drink 2 [...] AT BEDTIME 90 Tab 1 05/21/2020 Active ferrous sulfate (FEOSOL) 325 (65 FE) MG Tablet Take 1 Tab by mouth 2 times a day. 60 Tab 5 11/14/2019 0 Discontinue d(End of Procedure) documented as of this encounter (statuses as of 05/21/2020) Active Problems Problem Noted Date Complicated UTI [...] as of this encounter (statuses as of 05/21/2020) Resolved Problems Problem Noted Date Resolved Date [...] pain 01/24/2012 01/17/2017 Genetic Sleep Disorder Research Other*[id number] 05/13/2011 04/07/2016 Obstructive sleep apnea 01/18/2011 12/27/19 [...] as of this encounter (statuses as of 05/21/2020) Immunizations Name Administration Dates Next Due HEP [...] Pressure - - Pulse - - Temperature 35.2 C (95.4 F) 05/21/2020 1:03 PM ED T Respiratory Rate - - [...] No 05/05/2020 documented as of this encounter Progress Notes * Carter Luong MD - 05/21/2020 1:13 PM EDT SUBJECTIVE: Shaina Bustos is a 65 year old female. Chief Complaint Patient presents with Follow Up return after Hida scan HPI: Shaina Bustos is being seen for discussion of the results of her hepatobiliary scan. She continues to have discomfort as described in the following note from her previous visit. "HPI: Shaina Bustos is referred by Rajwinder Carter DO for evaluation of pain. The patient states that she has been experiencing discomfort when she points to the site it is on the lateral side of her torso at the lower aspect of her chest wall in the mid axillary line. She states that it radiates sometimes around to the front and has on occasion radiated over towards the left side. It has doubled her over on occasion and for that has been seen in the emergency room at [facility] on 04/29/20 and 05/05/20. She was admitted overnight for observation during that 2nd visit. Review of the discharge summary indicates that her discomfort resolved. During evaluation for though she underwent a CT scan and ultrasound of the right upper quadrant. Neither of those demonstrated any gallbladder issues. There were no stones seen. She had no pericholecystic fluid or thickening of the gallbladder wall. She does have a history of NG. The CT scan indicated evidence of cirrhosis. She stated that she was aware of that. The discomfort is sometimes postprandial but not always. It is always located in the same place. She is wheelchair-bound and can only be moved out of the wheelchair with the help of a Svetlana lift. At the present time she is pain-free. She has rare nausea with the discomfort. She has not vomited. She moves her bowels regularly without constipation or diarrhea. There is no melena or hematochezia. Her appetite is good despite the discomfort." OBJECTIVE: PHYSICAL EXAM: The patient could not get out of the wheelchair and requires a Svetlana lift. Exam was not performed for that reason. ASSESSMENT: Right lateral torso pain PLAN: There is no evidence of any gallbladder disease based on CT scan, ultrasound and hepatobiliary scan. She does have small kidney stones although they were not obstructive in there is a question as to whether not the pain might be related to that. It also might be musculoskeletal from her sitting in the wheelchair all the time. There is no indication for general surgical intervention at this time. Carter Luong MD 05/21/2020 documented in this encounter Nursing Notes * Amanda Almanza LPN - 05/21/2020 1:07 PM EDT Chief Complaint Patient presents with Follow Up return after Hida scan Patient is still having pain on her right side of a level 9. She went to bend over and could not get back up. documented in this encounter Plan of Treatment Upcoming Encounters Date Type Specialty Care Team Description 05/28/2020 Office Visit Gastroenterology Lyssa Stout CRNP [address] [place] [address] [address] [phone] 05/29/2020 Cardiac Studies Cardiac Studies Dobutamine [address] [place], [place] [id number] 06/03/2020 Hospital Encounter Surgery Janis Hatch DO [address] [place] [address] [phone] 06/03/2020 Surgery Surgery Janis Hatch, DO [address] [place] [address] [phone] COLONOSCOPY FLEXIBLE PROXIMAL DIAGNOSTIC 06/10/2020 Office Visit Gynecology Obstetrics Angel Tyreseshahzad Bev, DO [address] [place], [place] [phone] 06/11/2020 Telemedicine Wound Care Prakash Honeycutt PA-C [address] [place] [address] 06/30/2020 Office Visit Hematology Oncology Tono Sanchez MD [address] [facility] [place] [address] [phone] 07/29/2020 Office Visit Family Medicine Rajwinder Carter, DO [address] [place] [address] 07/31/2020 Nutrition Services Gastroenterology Melissa Omalley, RDN [address] [place] [address] 09/03/2020 Imaging Radiology Health Maintenance Due Date Last Done Comments DIABETES-EYE EXAM 06/12/2019 06/12/2018, , 06/12/2018, Additional history exists PAP SMEAR-EVERY 3 YRS,AGES 21-65 10/10/2019 10/10/2016, 07/02/2014, 04/16/2013, Additional history exists DIABETES-URINE MICROALBUMIN EVERY 12 MONTHS 01/12/2020 01/11/2019, 08/24/2018, 07/19/2018, Additional history exists Influenza Vaccine (FLU shot) (#1) 2020 06/05/2019, 06/05/2019, 05/16/2018, Additional history exists DXA-SCREENING EVERY 7 YRS-USE SMARTSET# 0907 TO ORDER 2020 Pneumococcal Vaccine: 65+ Years [...] of this encounter Visit Diagnoses Diagnosis Right flank pain- Primary Abdominal pain, unspecified site documented in this encounter Advance Directives Documents on File Type Date Recorded 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
--- OUTSIDE RECORDS SUMMARY | 2023-05-10 22:26 | External Medical Summary | Summary of Care ---
Author Name Unknown Organization [place] [address] Care Team Providers Care Clock Repair Technician Name Role Phone JohnbrianRajwinder thacker Primary Care Provider [phone] Reason for Visit * Reason Comments Pre Cert/Prior Auth Encounter Details Date Type Department Care Team Description 05/07/2020 Telephone Gastroenterology, [facility] [address] [facility] [place] [address] Inocente Gonzalez CRNP 132 [facility] [place] [address] Pre Cert/Prior Auth Allergies Active Allergy Reactions [...] Dosing Unit 5 0 Active nystatin (NYSTOP) 205226 UNIT/GM powder Apply topically to affected area [...] 0 Active potassium chloride ER 10 MEQ TBCRIndications: Hypokalemia TAKE 1 TABLET EVERY DAY WITH FOOD 90 Tab 1 0 Active SM ASPIRIN ADULT LOW STRENGTH 81 MG TBEC TAKE 1 TABLET BY MOUTH ONCE DAILY 90 Tab 3 0 Active traZODone (DESYREL) 50 MG TabletIndication s:Sleep disturbances Take 1 Tab by mouth at bedtime. 90 Tab 1 0 Active escitalopram (LEXAPRO) 20 MG TabletIndication s:Recurrent major depressive disorder, in partial remission (HCC) Take 1 Tab by mouth daily. 90 Tab 1 0 Active Dulaglutide (TRULICITY) 1.5 MG/0.5ML SOPNIndications: [...] 0 Active silver sulfadiazine (SILVADENE) 1 % creamIndications :Open wound of right great toe, subsequent encounter Apply topically to affected area daily. Apply to wound daily with dressing 50 g 3 0 Active linaCLOtide (LINZESS) 290 MCG Capsule Take 1 Cap by mouth daily before breakfast. 90 Cap 3 0 Active PEG 1080-WTe-PnVku-N aCl-NaSulf (GOLYTELY) 227.1 g PACK Drink 2 liters two days before colonoscopy and 2 liters the day before colonoscopy 1 Each 0 0 Active MetFORMIN (GLUCOPHAGE) 1000 MG TabletIndication s:Type 2 diabetes mellitus with hemoglobin A1c goal of less than 7.0% ([facility]) Take 1 Tab by mouth 2 times a day. 180 Tab 1 0 Active nadolol (CORGARD) 20 MG Tablet Take 2 Tabs by mouth daily. 180 Tab 1 0 05/12/20 20 Discontinued fluconazole (DIFLUCAN) 200 MG Tablet Take 2 Tabs by mouth daily. 10 Tab 0 0 05/07/20 20 Discontinued(End of Procedure) documented as of this encounter [...] pain 01/24/2012 01/17/2017 Genetic Sleep Disorder Research Other*[id number] 05/13/2011 04/07/2016 Obstructive sleep apnea 01/18/2011 12/27/19 [...] Telephone Encounter - Caron Escobar RN - 05/12/2020 2:39 PM EDT Called insurance, request was resubmitted under chronic constipation. Approved for one year. No auth# generated, can use member ID #. We are to be receiving a fax with approval within 72 hours. Called pharmacy and made aware of approval. They have to order the medication in stock and then will notify patient. * Telephone Encounter - Brianne Triana RN - 05/12/2020 11:09 AM EDT Jarett Webber [facility] 19 hours ago (3:28 PM) [place] denied by insurance. Thanks, Jarett Webber, PharmD Clinical Pharmacist Telepharmacy [phone] 05/11/2020,3:27 PM * Telephone Encounter - Caron Escobar RN - 05/07/2020 10:44 AM EDT Submitted via cover meds. * Telephone Encounter - Sabine Valencia LPN - 05/07/2020 8:25 AM EDT Received a fax from [employer] for Cover my Meds for this patients linraimundos needs a prior auth Vera: [id number] documented in this encounter Plan of Treatment Upcoming Encounters Date Type Specialty Care Team Description 05/15/2020 Appointment Radiology 05/28/2020 Office Visit [facility] [address] [facility] [address] 06/03/2020 [facility]atch[facility] [place] [address] 06/03/2020 Surgery [facility] [id number] COLONOSCOPY FLEXIBLE PROXIMAL DIAGNOSTIC 06/04/2020 Office Visit General Surgery Carter Luong MD [address] [facility] [place] [id number] 06/10/2020 Office Visit Gynecology Obstetrics Alcon Ortiz, DO [address] [place] [address] 06/11/2020 Telemedicine Wound Care Prakash Honeycutt PA-C [address] [place] [address] 06/30/2020 Office Visit Hematology Oncology Tono Sanchez MD [address] 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
--- OUTSIDE RECORDS SUMMARY | 2023-05-10 22:26 | External Medical Summary ---
Author Name Unknown Address Unknown Organization R:IT USE ONLY!!! Laboratory Report Ordering Provider Test Date Status RITTER RIZWAN 05/13/2020 23:26:00 Final Observation Date Value Abnormality Reference (Units ) Status Glucose Point of Care 05/14/2020 07:25 223 Above high normal 70-120 (mg/dL) Final Performing Location IT USE ONLY!!!
--- OUTSIDE RECORDS SUMMARY | 2023-05-10 22:26 | External Medical Summary ---
Author Name Unknown Address [facility] N [facility]22 Phone Organization K01:[place] [id number] Laboratory Report Ordering Provider Test Date Status OPHELIA WAKEFIELD 05/13/2020 20:19:00 Final Observation Date Value Abnormality Reference (Units ) Status Troponin T 05/13/2020 21:50 8 0-14 (ng/L) Final Performing Location [address] [address]
--- OUTSIDE RECORDS SUMMARY | 2023-05-10 22:26 | External Medical Summary ---
Author Name Unknown Address [facility] N [facility] [place] [address] Phone Organization K01:[place] [address] Laboratory Report Ordering Provider Test Date Status NAWAF LOPEZ 05/13/2020 18:29:00 Final Observation Date Value Abnormality Reference (Units ) Status CK-MB 05/13/2020 19:28 1.3 0-4.3 (ng/mL) Final Performing Location [place] [id number]
--- OUTSIDE RECORDS SUMMARY | 2023-05-10 22:26 | External Medical Summary ---
Author Name Unknown Address [address] [place] [id number] Phone Organization K01:[facility] [address] [place] [id number] Laboratory Report Ordering Provider Test Date Status JESSICARENETTA REAES ZAK 05/13/2020 18:29:00 Final Observation Date Value Abnormality Reference (Units ) Status BUN 05/13/2020 19:28 10 6-20 (mg/dL) Final Creatinine 05/13/2020 19:28 0.7 0.5-1.0 (mg/ dL) Final E Glom Filt Rate 05/13/2020 19:28 >60.0 >60 Final Performing Location [facility] [address] [facility] [address]
--- OUTSIDE RECORDS SUMMARY | 2023-05-10 22:26 | External Medical Summary | Summary of Care ---
Author Name Unknown Organization [place] [address] Care Team Providers Care Brineyard Supervisor Name Role Phone Rajwinder Lara DO Primary Care Provider Reason for Visit * Reason Comments eRx-Medication Refill Encounter Details Date Type Department Care Team Description 05/20/2020 Refill [facility] [address] [place], [place] [id number] Rajwinder Lara DO [address] [place] [address] [phone] Recurrent major depressive disorder, in partial remission (HCC); Sleep disturbances Allergies Active Allergy Reactions Severity [...] Dosing Unit 5 0 Active nystatin (NYSTOP) 848401 UNIT/GM powder Apply topically to affected area 3 times a day. 60 g 1 0 Active BD PEN NEEDLE MINI U/F 31G X 5 MMIndications:Ty pe 2 diabetes mellitus with hemoglobin A1c goal of less than 7.0% ([facility]) use with basaglar at bedtime 100 Each [...] ([facility]) Inject 1 syringeful once weekly 6 mL [...] breakfast. 90 Cap 3 0 Active PEG 1079-MGv-DgVaa-N aCl-NaSulf (GOLYTELY) 227.1 g PACK Drink 2 [...] 2 0 Active escitalopram (LEXAPRO) 20 MG TabletIndication s:Recurrent major depressive disorder, in partial remission (HCC) TAKE 1 TABLET BY MOUTH ONCE DAILY 90 Tab 1 0 Active gabapentin (NEURONTIN) 300 MG Capsule TAKE 1 CAPSULE BY MOUTH IN THE MORNING, 1 CAPSULE MIDDAY, AND 2 CAPSULES IN THE EVENING 180 Cap 2 0 Active traZODone (DESYREL) 50 MG TabletIndication s:Sleep disturbances TAKE 1 TABLET BY MOUTH AT BEDTIME 90 Tab 1 0 Active gabapentin (NEURONTIN) 300 MG Capsule One pill in am, one midday, two in pm, 180 Cap 5 0 05/21/20 20 Discontinued ferrous sulfate (FEOSOL) 325 (65 FE) MG Tablet Take 1 Tab by mouth 2 times a day. 60 Tab 5 0 05/21/20 20 Discontinued(End of Procedure) traZODone (DESYREL) 50 MG TabletIndication s:Sleep disturbances Take 1 Tab by mouth at bedtime. 90 Tab 1 0 05/21/20 20 Discontinued escitalopram (LEXAPRO) 20 MG TabletIndication s:Recurrent major depressive disorder, in partial remission (HCC) Take 1 Tab by mouth daily. 90 Tab 1 0 05/21/20 20 Discontinued cyclobenzaprine (FLEXERIL) 10 MG Tablet Take 1 Tab by mouth every night at bedtime. 30 Tab 0 0 05/21/20 20 Discontinued documented as of this encounter [...] pain 01/24/2012 01/17/2017 Genetic Sleep Disorder Research Other*[id number] 05/13/2011 04/07/2016 Obstructive sleep apnea 01/18/2011 12/27/19 [...] Miscellaneous Notes * Telephone Encounter - Rajwinder Lara DO - 05/21/2020 12:58 PM EDT Signed Prescriptions: Disp Refills cyclobenzaprine (FLEXERIL) 10 MG Tablet 30 Tab 2 Sig: TAKE 1 TABLET ONCE DAILY AT BEDTIME Authorizing Provider: RAJWINDER LARA escitalopram (LEXAPRO) 20 MG Tablet 90 Tab 1 Sig: TAKE 1 TABLET BY MOUTH ONCE DAILY Authorizing Provider: RAJWINDER LARA Ordering User: SALONI REYES gabapentin (NEURONTIN) 300 MG Capsule 180 Cap2 Sig: TAKE 1 CAPSULE BY MOUTH IN THE MORNING, 1 CAPSULE MIDDAY, AND 2 CAPSULES IN THE EVENING Authorizing Provider: RAJWINDER LARA traZODone (DESYREL) 50 MG Tablet 90 Tab 1 Sig: TAKE 1 TABLET BY MOUTH AT BEDTIME Authorizing Provider: RAJWINDER LARA Ordering User: SALONI REYES * Telephone Encounter - Saloni Reyes [facility] - 05/21/2020 12:17 PM EDT Pending Prescriptions: Disp Refills cyclobenzaprine (FLEXERIL) 10 MG Tablet [*30 Tab 2 Sig: TAKE 1 TABLET ONCE DAILY AT BEDTIME gabapentin (NEURONTIN) 300 MG Capsule [Ph*180 Cap2 Sig: TAKE 1 CAPSULE BY MOUTH IN THE MORNING, 1 CAPSULE MIDDAY, AND 2 CAPSULES IN THE EVENING Signed Prescriptions: Disp Refills escitalopram (LEXAPRO) 20 MG Tablet 90 Tab 1 Sig: TAKE 1 TABLET BY MOUTH ONCE DAILY Authorizing Provider: RAJWINDER LARA Ordering User: SALONI REYES traZODone (DESYREL) 50 MG Tablet 90 Tab 1 Sig: TAKE 1 TABLET BY MOUTH AT BEDTIME Authorizing Provider: RAJWINDER LARA Ordering User: SALONI REYES * Telephone Encounter - Saloni Reyes [facility] - 05/21/2020 12:13 PM EDT Pending Prescriptions: Disp Refills cyclobenzaprine (FLEXERIL) 10 MG Tablet [*30 Tab 2 Sig: TAKE 1 TABLET ONCE DAILY AT BEDTIME gabapentin (NEURONTIN) 300 MG Capsule [Ph*180 Cap2 Sig: TAKE 1 CAPSULE BY MOUTH IN THE MORNING, 1 CAPSULE MIDDAY, AND 2 CAPSULES IN THE EVENING Signed Prescriptions: Disp Refills escitalopram (LEXAPRO) 20 MG Tablet 90 Tab 1 Sig: TAKE 1 TABLET BY MOUTH ONCE DAILY Authorizing Provider: RAJWINDER LARA Ordering User: SALONI REYES traZODone (DESYREL) 50 MG Tablet 90 Tab 1 Sig: TAKE 1 TABLET BY MOUTH AT BEDTIME Authorizing Provider: RAJWINDER LARA Ordering User: SALONI REYES Last Office/Telemedicine Visit: 04/28/2020 Next Office Visit: 07/29/2020 Scheduled Provider(s): Rajwinder Lara, DO If no future appointments scheduled, and last appointment is greater than a year ago, please schedule patient for a follow-up appointment Last date the medication was ordered: 04/22/2020, 11/07/2019 Pharmacy: [facility] # [id number] Is this request for a controlled [...] 132 [facility] [place] [address] [phone] 05/29/2020 Cardiac Studies Cardiac Studies Dobutamine [address] [place], [place] [id number] 06/03/2020 Hospital Encounter Surgery Janis Hatch, DO [address] [facility] [place], [place] [address] [phone] 06/03/2020 Surgery Surgery Janis Hatch, DO [address] [facility] [place], [place] [address] [phone] COLONOSCOPY FLEXIBLE PROXIMAL DIAGNOSTIC 06/10/2020 Office Visit Gynecology Obstetrics Alcon Ortiz DO [address], [place] [address] 06/11/2020 Telemedicine Wound Care Prakash Honeycutt PA-C [address] [place], [place] [address] 06/30/2020 Office Visit Hematology Oncology Tono Sanchez MD [address] [facility], [place] [id number] 07/29/2020 Office Visit Family Medicine Rajwinder Lara, [address] [place] [address] 07/31/2020 Nutrition Services Gastroenterology Melissa Omalley, [place] [address] [place], [place] [address] 09/03/2020 Imaging Radiology Health Maintenance Due Date [...] major depressive disorder, in partial remission (HCC) Sleep disturbances Sleep disturbance, unspecified documented in this encounter Advance Directives Documents on File Type Date Recorded Patient Chuck Splitter Expl anation Advanced Directive service a kerri [...]
--- OUTSIDE RECORDS SUMMARY | 2023-05-10 22:26 | External Medical Summary | Summary of Care ---
Author Name Unknown Organization [place] [address] Care Team Providers Care Gynaecological Oncologist Name Role Phone JohnbrianRajwinder thacker Primary Care Provider [phone] Reason for Visit * Reason Comments Pre Cert/Prior Auth Encounter Details Date Type Department Care Team Description 05/07/2020 Telephone Gastroenterology, [facility] 132 [facility] [place] [address] Inocente Gonzalez CRNP 132 [facility] [place] [address] Pre Cert/Prior Auth [...] Dosing Unit 5 10/07/2019 Active nystatin (NYSTOP) 728516 UNIT/GM powder Apply topically to affected area 3 times a day. 60 g 1 10/16/2019 Active BD PEN NEEDLE MINI U/F 31G X 5 MMIndications:Typ e 2 diabetes mellitus with hemoglobin A1c goal of less than 7.0% ([facility]) use with basaglar at bedtime 100 Each [...] breakfast. 90 Cap 3 05/04/2020 Active PEG 0838-JOz-LbXcs-Na Cl-NaSulf (GOLYTELY) 227.1 g PACK Drink 2 liters two days before colonoscopy and 2 liters the day before colonoscopy 1 Each 0 05/04/2020 Active MetFORMIN (GLUCOPHAGE) 1000 MG TabletIndications :Type 2 diabetes mellitus with hemoglobin A1c goal of less than 7.0% (HCC) Take 1 Tab by mouth 2 times a day. 180 Tab 1 2020 Active fluconazole (DIFLUCAN) 200 MG Tablet Take 2 [...] pain 01/24/2012 01/17/2017 Genetic Sleep Disorder Research Other*[id number] 05/13/2011 04/07/2016 Obstructive sleep apnea 01/18/2011 12/27/19 [...] 11:09 AM EDT Jarett Webber [facility] 19 hours ago (3:28 PM) [place] denied by insurance. Thanks, Jarett Webber, PharmD Clinical Pharmacist Telepharmacy [phone] 05/11/2020,3:27 PM * Telephone Encounter - Caron Escobar RN - 05/07/2020 10:44 AM EDT Submitted via cover my meds. * Telephone Encounter - Sabine Valencia LPN - 05/07/2020 8:25 AM EDT Received a fax from [employer] for Cover my Meds for this patients delicia needs a prior auth Vera: [id number] documented in this encounter Plan of Treatment Upcoming Encounters Date Type Specialty Care Team Description 05/15/2020 Appointment Radiology 05/28/2020 Office Visit Gastroenterology Lyssa Stout CRNP 132 [facility] [place] [address] [phone] 06/03/2020 Hospital Encounter Surgery Janis Hatch DO [address] [facility] [place], [place] [address] [phone] 06/03/2020 Surgery Surgery Janis Hatch, DO [facility] [place] [place] [address] [phone] COLONOSCOPY FLEXIBLE PROXIMAL DIAGNOSTIC 06/04/2020 Office Visit General Surgery Carter Luong MD [address] [facility] [place] [id number] 06/10/2020 Office Visit Gynecology Obstetrics Angel Tyreseshahzad Pablo, DO [address] [place] [address] 06/11/2020 Telemedicine Wound Care Prakash Honeycutt PA-C [address] [place] [address] 06/30/2020 Office Visit Hematology Oncology Tono Sanchez MD 200 [place] [address] [phone] 07/29/2020 Office Visit Family Medicine Rajwinder Carter, DO [address] [place] [address] 07/31/2020 Nutrition Services Gastroenterology Melissa Omalley, [place] [address] [place], [place] [id number] 09/03/2020 Imaging Radiology Health Maintenance Due Date [...] Documents on File Type Date Recorded Patient Nub Card Tender Expl anation Advanced Directive service a [...]
--- OUTSIDE RECORDS SUMMARY | 2023-05-10 22:26 | External Medical Summary | Summary of Care ---
Author Name Unknown Organization [place] [address] Care Team Providers Care Beef Cattle Farm Worker Name Role Phone Rajwinder Carter DO Primary Care Provider [phone] Reason for Visit * Reason Comments Encounter Created in Error Encounter Details Date Type Department Care Team Description 05/21/2020 Telephone [facility] [address] [place] [address] Rajwinder Carter DO [address] [place] [address] [phone] Encounter Created in Error Allergies Active Allergy Reactions Severity Noted Date [...] Dosing Unit 5 10/07/2019 Active nystatin (NYSTOP) 959056 UNIT/GM powder Apply topically to affected area 3 times a day. 60 g 1 10/16/2019 Active BD PEN NEEDLE MINI U/F 31G X 5 MMIndications:Type 2 diabetes mellitus with hemoglobin A1c goal of less than 7.0% ([facility]) use with basaglar at bedtime 100 Each [...] 10 MEQ TBCRIndications:Hy pokalemia TAKE 1 TABLET EVERY DAY WITH FOOD 90 Tab 1 12/04/2019 Active SM ASPIRIN ADULT LOW STRENGTH 81 MG TBEC TAKE 1 TABLET BY MOUTH ONCE DAILY 90 Tab 3 12/04/2019 Active Dulaglutide (TRULICITY) 1.5 MG/0.5ML SOPNIndications:Ty pe 2 diabetes mellitus with hemoglobin A1c goal of less than 7.0% ([facility]) Inject 1 syringeful once weekly 6 mL 1 12/04/2019 Active atorvaSTATin (LIPITOR) 40 MG TabletIndications: Dyslipidemia, [...] Active insulin glargine (LANTUS SOLOSTAR) 100 UNIT/ML SOPNIndications:Ty pe 2 diabetes mellitus with hemoglobin A1c [...] 04/25/2020 Active silver sulfadiazine (SILVADENE) 1 % creamIndications:O pen wound of right great toe, subsequent encounter Apply topically to affected area daily. Apply to wound daily with dressing 50 g 3 04/30/2020 Active linaCLOtide (LINZESS) 290 MCG Capsule Take 1 Cap by mouth daily before breakfast. 90 Cap 3 05/04/2020 Active PEG 7167-PTf-KmQgx-NaC l-NaSulf (GOLYTELY) 227.1 g PACK Drink 2 [...] AT BEDTIME 90 Tab 1 05/21/2020 Active documented as of this encounter (statuses [...] pain 01/24/2012 01/17/2017 Genetic Sleep Disorder Research Other*[id number] 05/13/2011 04/07/2016 Obstructive sleep apnea 01/18/2011 12/27/19 [...] Telephone Encounter - Jovana Lambert RN - 05/21/2020 3:00 PM EDT Duplicate Request for BD Pen Already set up documented in this encounter Plan of Treatment Upcoming Encounters Date Type Specialty Care Team Description 05/28/2020 Office Visit Gastroenterology Lyssa Stout CRNP 132 [place] [address] [phone] 05/29/2020 Cardiac Studies Cardiac Studies Dobutamine [address] [facility] [place] [address] 06/03/2020 Hospital Encounter Surgery [facility]atch[facility] [address] [phone] 06/03/2020 Surgery Surgery Janis Hatch, [address] [place] [address] [phone] COLONOSCOPY FLEXIBLE PROXIMAL DIAGNOSTIC 06/10/2020 Office Visit Gynecology Obstetrics Alcon Ortiz DO [address] [place], [place] [phone] 06/11/2020 Telemedicine Wound Care Prakash Honeycutt PA-C [address] [place] [address] 06/30/2020 Office Visit Hematology Oncology Tono Sanchez MD [address] [place] [address], [place] [address] [phone] 07/29/2020 Office Visit Family Medicine Rajwinder Carter, [address] [place] [address] [phone] 07/31/2020 Nutrition Services Gastroenterology Melissa Omalley, RDN [address] [place] [address] [phone] 09/03/2020 Imaging Radiology Health Maintenance Due Date [...] Documents on File Type Date Recorded 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
--- OUTSIDE RECORDS SUMMARY | 2023-05-10 22:26 | External Medical Summary ---
Author Name Unknown Address [facility] N [facility] [place] Phone Organization K01:[place] [address] [place] [id number] Laboratory Report Ordering Provider Test Date Status NAWAF LOPEZ 05/13/2020 18:29:00 Final Observation Date Value Abnormality Reference (Units ) Status Troponin T 05/13/2020 19:28 7 0-14 (ng/L) Final Performing Location [address] [address]
--- OUTSIDE RECORDS SUMMARY | 2023-05-10 22:26 | External Medical Summary ---
Author Name Unknown Address [facility] [place] [address] Phone Organization K01:[place] [id number] Laboratory Report Ordering Provider Test Date Status OPHELIA WAKEFIELD 05/13/2020 18:29:00 Final Observation Date Value Abnormality Reference (Units ) Status CK 05/13/2020 20:01 54 26-192 (U/L) Final Performing Location [place] [id number]
--- OUTSIDE RECORDS SUMMARY | 2023-05-10 22:27 | External Medical Summary | Summary of Care ---
Author Name Unknown Organization [facility] Address [facility] [place] [address] Care Team Providers Care Battery Plate Remover Name Role Phone JohnbrianRajwinder thacker Primary Care Provider Reason for Visit * Reason Comments Medication Pre-auth linzess Encounter Details Date Type Department Care Team Description 05/04/2020 Telephone Gastroenterology, [facility] [address] [facility] [place] [address] Inocente Gonzalez CRNP [facility] [place] [address] Medication Pre-auth (linzess) Allergies Active Allergy Reactions Severity Noted Date Comments Adhesive Tape Itching 04/29/2020 Penicillins Rash 02/12/2008 documented as of this encounter (statuses as of 05/11/2020) Medications Medication Sig Dispensed Refills Start Date [...] Dosing Unit 5 10/07/2019 Active nystatin (NYSTOP) 512027 UNIT/GM powder Apply topically to affected area [...] breakfast. 90 Cap 3 05/04/2020 Active PEG 0708-NCm-HdScl-Na Cl-NaSulf (GOLYTELY) 227.1 g PACK Drink 2 [...] as of this encounter (statuses as of 05/11/2020) Active Problems Problem Noted Date Complicated UTI [...] as of this encounter (statuses as of 05/11/2020) Resolved Problems Problem Noted Date Resolved Date [...] pain 01/24/2012 01/17/2017 Genetic Sleep Disorder Research Other*[id number] 05/13/2011 04/07/2016 Obstructive sleep apnea 01/18/2011 12/27/19 [...] as of this encounter (statuses as of 05/11/2020) Immunizations Name Administration Dates Next Due HEP [...] encounter Miscellaneous Notes * Telephone Encounter - Jarett Webber RPh - 05/11/2020 1:38 PM EDT PA already in process on CMM, ervin: [id number], awaiting response. Thanks, Jarett Webber PharmD Clinical Pharmacist [facility] [phone] 05/11/2020,1:39 PM * Telephone Encounter - Devorah Duque PHARM Tech - 05/11/2020 1:05 PM EDT Pt calling to check on status of prior auth. Caller can be reached at [phone]. Advised pt it is the insurance that needs the documentation as she though did not send the prescription. Thank You, Devorah Duque Cpht Elocution Teacher [facility] 05/11/2020, 1:05 PM * Telephone Encounter - Florinda Stevenson CPhT - 05/04/2020 3:58 PM EDT Pharmacy calling to inform doctor that the pt's insurance will not pay for this medication without a completed prior authorization. . Please complete with the following information: Patient name: Shaina Bustos ID number: [id number] BIN number: [id number] PCN number: [id number] Group number: [id number] Subscriber name: Shaina Bustos Primary or Secondary Insurance:Primary Medication: Linzess Reason for Request: needs PA Pharmacy: [facility] plan and phone number: [facility] [phone] What alternative medications does the pharmacy have in stock?: n/a List of medications pt has tried and failed: n/a Thank you, Florinda Stevenson CPhT Elocution Teacher [facility] 05/05/2020, 10:11 AM documented in this encounter Plan of Treatment Upcoming Encounters Date Type Specialty Care Team Description 05/15/2020 Appointment Radiology 05/28/2020 Office Visit Gastroenterology Lyssa Stout CRNP 132 [facility] [place] [address] [phone] 06/03/2020 Hospital Encounter Surgery [facility] Hatch, DO [facility] [place] [address] [phone] 06/03/2020 Surgery Surgery Janis Hatch, DO 132 [facility] [place] [address] [phone] COLONOSCOPY FLEXIBLE PROXIMAL DIAGNOSTIC 06/04/2020 Office Visit General Surgery Carter Luong MD [address] [place] [address] [phone] 06/10/2020 Office Visit Gynecology Obstetrics Alcon Ortiz, DO [address], [place] [id number] 06/11/2020 Telemedicine Wound Care Prakash Honeycutt PA-C [address] [place] [address] 06/30/2020 Office Visit Hematology Oncology Tono Sanchez MD [address] [place] [address], [place] [address] [phone] 07/29/2020 Office Visit Family Medicine Rajwinder Carter, DO [address] [facility] [id number] 07/31/2020 Nutrition Services Gastroenterology Melissa Omalley, RDN [address] [place] [address] [phone] 09/03/2020 Imaging Radiology Health Maintenance Due Date [...] of 2 - PPSV23) 2020 05/02/2019, 06/01/2010 Influenza Vaccine (FLU shot) (#1) 2020 06/05/2019, 06/05/2019, 05/16/2018, Additional history exists Zoster Vaccines (3 of [...] Documents on File Type Date Recorded 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
--- OUTSIDE RECORDS SUMMARY | 2023-05-10 22:27 | External Medical Summary | Summary of Care ---
Author Name Unknown Organization [facility] Address [facility] [place] [address] Care Team Providers Care Sweet Dough Mixer Name Role Phone JohnbrianRajwinder thacker Primary Care Provider [phone] Reason for Visit * Reason Comments Medication Pre-auth linzess Encounter Details Date Type Department Care Team Description 05/04/2020 Telephone Gastroenterology, [facility] 132 [facility] [place] [address] Inocente Gonzalez CRNP [facility] [place] [address] Medication Pre-auth (linzess) Allergies Active Allergy Reactions Severity Noted Date Comments Adhesive Tape Itching 04/29/2020 Penicillins Rash 02/12/2008 documented as of this encounter (statuses as of 05/07/2020) Medications Medication Sig Dispensed Refills Start Date [...] Dosing Unit 5 10/07/2019 Active nystatin (NYSTOP) 458738 UNIT/GM powder Apply topically to affected area [...] at bedtime. 30 Tab 0 04/22/2020 Active fluconazole (DIFLUCAN) 200 MG Tablet Take 2 Tabs by mouth daily. 10 Tab 0 04/26/2020 Active Additional Information Patient not taking. Reported on 05/04/2020 2:23 PM mupirocin calcium (BACTROBAN) 2 % ointment Apply [...] breakfast. 90 Cap 3 05/04/2020 Active PEG 8831-RCc-ObIao-Na Cl-NaSulf (GOLYTELY) 227.1 g PACK Drink 2 liters two days before colonoscopy and 2 liters the day before colonoscopy 1 Each 0 05/04/2020 Active MetFORMIN (GLUCOPHAGE) 1000 MG TabletIndications :Type 2 diabetes mellitus with hemoglobin A1c goal of less than 7.0% ([facility]) TAKE 1 TABLET BY MOUTH TWICE DAILY 180 Tab 1 01/06/2020 0 Discontinue d(Refill) documented as of this encounter (statuses as of 05/07/2020) Active Problems Problem Noted Date Complicated UTI [...] as of this encounter (statuses as of 05/07/2020) Resolved Problems Problem Noted Date Resolved Date [...] pain 01/24/2012 01/17/2017 Genetic Sleep Disorder Research Other*[id number] 05/13/2011 04/07/2016 Obstructive sleep apnea 01/18/2011 12/27/19 [...] as of this encounter (statuses as of 05/07/2020) Immunizations Name Administration Dates Next Due HEP [...] have Coronavirus / COVID-19? No / Unsure 05/06/2020 12:19 PM EDT documented as of this encounter [...] encounter Miscellaneous Notes * Telephone Encounter - Florinda Stevenson CPhT - 05/04/2020 3:58 PM EDT Pharmacy calling to inform doctor that the pt's insurance will not pay for this medication without a completed prior authorization. . Please complete with the following information: Patient name: Shaina Bustos ID number: [id number] BIN number: [id number] PCN number: [id number] Group number: [id number] Subscriber name: Shaina Bustos Primary or Secondary Insurance:Primary Medication: Linzess Reason for Request: needs PA Pharmacy: [facility] plan and phone number: [facility] [phone] What alternative medications does the pharmacy have in stock?: n/a List of medications pt has tried and failed: n/a Thank you, Florinda Stevenson CPhT Storage Administrator [facility] 05/05/2020, 10:11 AM documented in this encounter Plan of Treatment Upcoming Encounters Date Type Specialty Care Team Description 05/07/2020 Office Visit General Surgery Carter Luong MD 132 [place] [address] [phone] Arrived 05/28/2020 Office Visit Gastroenterology Lyssa Stout CRNP [address] [facility] [place] [address] [phone] 06/03/2020 Hospital Encounter Surgery Janis Hatch, DO [address] [place] [address] [phone] 06/03/2020 Surgery Surgery [facility]is Hatch, DO [facility] [place] [address] [phone] COLONOSCOPY FLEXIBLE PROXIMAL DIAGNOSTIC 06/10/2020 Office Visit Gynecology Obstetrics Alcon Ortiz, DO [address] [place] [address] 06/11/2020 Telemedicine Wound Care Prakash Honeycutt PA-C [address] [place] [address] 06/30/2020 Office Visit Hematology Oncology Tono Sanchez MD 200 [place] [address] [phone] 07/29/2020 Office Visit Family Medicine Rajwinder Carter, DO [address] [place] [address] 07/31/2020 Nutrition Services Gastroenterology Melissa Omalley, RDN [address] [facility] [place] [address] 09/03/2020 Imaging Radiology Health Maintenance Due [...] Vaccines (3 - Td) 05/01/2027 05/01/2017, 05/26/2008 Pneumococcal Vaccine: Pediatrics (0 to 5 Years) and At-Risk Patients (6 to 64 Years) Completed 05/02/2019, 06/01/2010 MENINGOCOCCAL (MENACTRA/MENVEO) Aged Out No longer eligible based on patient's age to complete this topic documented as of this encounter Implants Not on filedocumented as of this encounter Advance Directives Documents on File Type Date Recorded Patient Cell Tester Expl anation Advanced Directive service a [...]
--- OUTSIDE RECORDS SUMMARY | 2023-05-10 22:27 | External Medical Summary | Summary of Care ---
Author Name Unknown Organization [place] [address] Care Team Providers Care Student Union Consultant Name Role Phone Rajwinder Carter Primary Care Provider [phone] Reason for Visit * Reason Comments NEW PATIENT Gallbladder issues * Evaluate & Treat - Unlimited Visits (Within 30 days (routine)) Status Reason Specialty Diagnoses / Procedures Referred By Contact Referred To Contact Pending Review Specialty Services Required General Surgery Diagnoses Biliary colic Selvin Estrada PA-C [address] [facility] [place] [address] Encounter Details Date Type Department Care Team Description 05/07/2020 Office Visit General Surgery, [facility] 132 [facility] [place] [address] Carter Luong MD 132 [place] [address] Abdominal pain, unspecified abdominal location*; Chest wall pain Allergies Active Allergy Reactions Severity Noted [...] Dosing Unit 5 10/07/2019 Active nystatin (NYSTOP) 472129 UNIT/GM powder Apply topically to affected area 3 times a day. 60 g 1 10/16/2019 Active BD PEN NEEDLE MINI U/F 31G X 5 MMIndications:Typ e 2 diabetes mellitus with hemoglobin A1c goal of less than 7.0% ([facility]) use with basaglar at bedtime 100 Each [...] breakfast. 90 Cap 3 05/04/2020 Active PEG 9892-KZl-RlBzn-Na Cl-NaSulf (GOLYTELY) 227.1 g PACK Drink 2 [...] pain 01/24/2012 01/17/2017 Genetic Sleep Disorder Research Other*[id number] 05/13/2011 04/07/2016 Obstructive sleep apnea 01/18/2011 12/27/19 [...] have Coronavirus / COVID-19? No / Unsure 05/07/2020 3:03 PM EDT documented as of this encounter Last Filed Vital Signs Vital Sign Reading Time Taken Comments Blood Pressure 127/77 05/07/2020 3:37 PM EDT Pulse 74 05/07/2020 3:37 PM EDT Temperature 37.3 C (99.2 F) 05/07/2020 3:37 PM ED T Respiratory Rate - - [...] Progress Notes * Carter Luong MD - 05/07/2020 5:23 PM EDT SUBJECTIVE: Shaina Bustos is a 64 year old female. Chief Complaint Patient presents with NEW PATIENT Gallbladder issues HPI: Shaina Bustos is referred by Rajwinder Carter DO for evaluation of pain. The patient states that she has been experiencing discomfort when she points to the site it is on the lateral side of hertorso at the lower aspect of her chest wall in the mid axillary line. She states that it radiates sometimes around to the front and has on occasion radiated over towards the left side. It has doubled her over on occasion and for that has been seen in the emergency room at [facility] on 04/29/20 and 05/05/20. She was admitted overnight for observation during that 2nd visit. Review of the discharge summary indicates that her discomfort resolved. During evaluation for though she u nderwent a CT scan and ultrasound of the [...] her bowels regularly without constipation or diarrhea. Thereis no melena or hematochezia. Her appetite is good despite the discomfort. Past Medical History: Diagnosis Date Cerebral palsy (HCC) 01/24/2012 Chronic hypoxemic respiratory failure (HCC) 04/08/2019 Chronic [...] BONE performed by Josh Vazquez MD at [facility] DELIVERY 04/20/1982 COLONOSCOPY 04/21/09 repeat in 10 years COLONOSCOPY, DIAGNOSTIC (RECTUM) 10/04/2016 normal bx, repeat 10 yrs/[facility] DENTAL SURGERY PROCEDURE NEC wisdom teeth x 4 DILATION AND CURETTAGE (D&C) EGD, FLEXIBLE, DIAGNOSTIC 10/04/2016 gastritis/[facility] EGD, FLEXIBLE, DIAGNOSTIC 01/11/2018 eso varices, retained food, repeat 1 yr/[facility] PELVIS/HIP JOINT SURGERY NEC teenager aid in walking REPAIR/GRAFT ACHILLES TENDON age 40 aid in walking Current Outpatient Medications Medication Sig Dispense Refill [START ON 2020] MetFORMIN (GLUCOPHAGE) 1000 MG Tablet Take 1 Tab by mouth 2 times a day. 180 Tab 1 linaCLOtide (LINZESS) 290 MCG Capsule Take 1 Cap by mouth daily before breakfast. 90 Cap 3 PEG 4328-TRp-GpUzz-NaCl-NaSulf (GOLYTELY) 227.1 g PACK Drink 2 liters two days before colonoscopy and 2 liters the day before colonoscopy 1 Each 0 silver sulfadiazine (SILVADENE) 1 % cream Apply topically to affected area daily. Apply to wound daily with dressing 50 g 3 mupirocin calcium (BACTROBAN) 2 % ointment Apply topically to affected area 2 times a day. Apply to right toe affected area cover with dressing. 22 g 0 cyclobenzaprine (FLEXERIL) 10 MG Tablet Take 1 Tab by mouth every night at bedtime. 30 Tab 0 tamsulosin (FLOMAX) 0.4 MG Capsule TAKE [...] 1 syringeful once weekly 6 mL 1 escitalopram (LEXAPRO) 20 MG Tablet Take 1 Tab by mouth daily. 90 Tab 1 potassium chloride ER 10 MEQ TBCR TAKE 1 TABLET EVERY DAY WITH FOOD 90 Tab 1 SM ASPIRIN ADULT LOW STRENGTH 81 MG TBEC TAKE 1 TABLET BY MOUTH ONCE DAILY 90 Tab 3 traZODone (DESYREL) 50 MG Tablet Take 1 Tab by mouth at bedtime. 90 Tab 1 Blood Glucose Monitoring Suppl (BLOOD GLUCOSE MONITOR SYSTEM) w/Device KIT Use to test once perday. 1 Kit 0 Glucose Blood (BLOOD GLUCOSE TEST) STRP Use to test once per day. 100 Strip 3 ferrous sulfate (FEOSOL) 325 (65 FE) MG Tablet Take 1 Tab by mouth 2 times a day. 60 Tab 5 gabapentin (NEURONTIN) 300 MG Capsule One pill in am, one midday, two in pm, 180 Cap 5 nadolol (CORGARD) 20 MG Tablet Take 2 Tabs by mouth daily. 180 Tab 1 Albuterol Sulfate (ALBUTEROL HFA) 108 (90 BASE) MCG/ACT inhaler Inhale 2 Puffs by mouth every 4hours as needed for Cough or Wheezing. With spacer 16 g 1 BD PEN NEEDLE MINI U/F 31G X 5 MM use with basaglar at bedtime 100 Each 10 nystatin (NYSTOP) 606028 UNIT/GM powder Apply topically to affected area 3 times a day. 60 g 1 Semaglutide, 1 MG/DOSE, (OZEMPIC, 1 MG/DOSE,) 2 MG/1.5ML SOPN Inject 1 mg under the skin once aweek. DX:E11.9 2 Pre-filled Pen Syringe Dosing Unit 5 albuterol sulfate (PROVENTIL) (2.5 MG/3ML) 0.083% [...] TABS 1 tab daily 1 Tab 0 Lancets MISC Use to test once per day. 100 Each 3 Review of patient's allergies indicates: Allergen Reactions Adhesive Tape Itching Pcn [Penicillins] Rash Social History: Social History Tobacco Use Smoking status: Never Smoker Smokeless tobacco: Never Used Substance Use Topics Alcohol use: No Vaping/E-Cigarette Use Vaping/E-Cigarette Use Never User Vaping/E-Cigarette Substances Vaping/E-Cigarette Devices OBJECTIVE: PHYSICAL EXAM: BP 127/77 | Pulse 74 | Temp 99.2 General: alert, no distress and obese Head: Normocephalic, No masses, lesions, tenderness or abnormalities Neck: supple, no adenopathy Heart: regular rate & rhythm Lungs: chest symmetric with normal AP diameter, no chest deformities noted, no chest wall tenderness, lungs clear to auscultation Abdomen: abdomen soft, normal bowel sounds, no masses or organomegaly and tenderness in the mid axillary line that is mostly related to the lower ribcage. There is also some extending tenderness anteriorly again mostly ribcage. Back: back symmetric, no curvature, no costovertebral angle tenderness, range of motion is normal ASSESSMENT: R10.9 Abdominal pain, unspecified abdominal location (primary encounter diagnosis) R07.89 Chest wall pain PLAN: This patient has abdominal in lower rib cage pain. I think the lower ribcage pain by her exam predominate. It was suggested that she be evaluated for biliary colic while in the emergency room. There is no evidence of cholelithiasis or cholecystitis. The next test would be a hepatobiliary scan. She wants to have that done in [place] as well since she cannot be moved out of her wheelchair with outthe Svetlana lift which they are concerned would not be available here. We will try to schedule. We will await the result. Carter Luong MD 05/07/2020 documented in this encounter Nursing Notes * Amanda Almanza LPN - 05/07/2020 3:40 PM EDT Chief Complaint Patient presents with NEW PATIENT Gallbladder issues Patient has a pain today of 9, the pain goes from right side and sometime moves up. She has had US and Ct and they said they can not find anything. This has been going on for a year. Sometimes she states the pain can be a 20. documented in this encounter Plan of Treatment Upcoming Encounters Date Type Specialty Care Team Description 05/28/2020 Office Visit Gastroenterology Lyssa Stout, ZAK [address] [facility] [address] [phone] 06/03/2020 Hospital Encounter Surgery Janis Hatch, DO [address] [place] [address] [phone] 06/03/2020 Surgery Surgery Janis Hatch, DO [facility] [place] [place] [address] [phone] COLONOSCOPY FLEXIBLE PROXIMAL DIAGNOSTIC 06/10/2020 Office Visit Gynecology Obstetrics Angel Tyreseshahzad Pablo, DO [address] [place] [address] 06/11/2020 Telemedicine Wound Care Prakash Honeycutt PA-C [address] [place] [address] 06/30/2020 Office Visit Hematology Oncology Tono Sanchez MD [address] [facility] [place] [address] [phone] 07/29/2020 Office Visit Family Medicine Rajwinder Carter, DO [address] [place] [address] 07/31/2020 Nutrition Services Gastroenterology Melissa Omalley, [place] [address] [place], [place] [address] 09/03/2020 Imaging Radiology Scheduled Referrals Name Type Priority Associated Diagnoses Orde r Schedule SURGERY REFERRAL OP Referral Within 30 da ys (routine) Biliary colic Ordered: 05/05/2020 Health Maintenance Due Date Last Done Comments [...] this encounter Visit Diagnoses Diagnosis Abdominal pain, unspecified abdominal location- Primary Chest wall pain Painful respiration documented in this encounter Advance Directives Documents on File Type Date Recorded 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
--- OUTSIDE RECORDS SUMMARY | 2023-05-10 22:27 | External Medical Summary | Summary of Care ---
Author Name Unknown Organization [facility] Address [place] [address] Care Team Providers Care Cam Maker Name Role Phone Rajwinder Carter DO Primary Care Provider [phone] Reason for Visit * Reason Comments Advice fyi Encounter Details Date Type Department Care Team Description 2020 Telephone [facility] [address] [place] [address] Rajwinder Carter DO [address] [place] [address] [phone] Advice (fyi) Allergies Active Allergy Reactions Severity Noted Date [...] Dosing Unit 5 10/07/2019 Active nystatin (NYSTOP) 416035 UNIT/GM powder Apply topically to affected area [...] 3 12/04/2019 Active traZODone (DESYREL) 50 MG TabletIndications: Sleep disturbances Take 1 Tab by mouth at bedtime. 90 Tab 1 12/04/2019 Active escitalopram (LEXAPRO) 20 MG TabletIndications: Recurrent major depressive disorder, in partial remission (HCC) Take 1 Tab by mouth daily. 90 Tab 1 12/04/2019 Active Dulaglutide (TRULICITY) 1.5 MG/0.5ML SOPNIndications:Ty [...] breakfast. 90 Cap 3 05/04/2020 Active PEG 0017-SYy-BaZqv-NaC l-NaSulf (GOLYTELY) 227.1 g PACK Drink 2 liters two days before colonoscopy and 2 liters the day before colonoscopy 1 Each 0 05/04/2020 Active MetFORMIN (GLUCOPHAGE) 1000 MG TabletIndications: Type 2 diabetes mellitus with hemoglobin A1c goal of less than 7.0% ([facility]) Take 1 Tab by mouth 2 times a day. 180 Tab 1 2020 Active documented as of this encounter (statuses [...] pain 01/24/2012 01/17/2017 Genetic Sleep Disorder Research Other*[id number] 05/13/2011 04/07/2016 Obstructive sleep apnea 01/18/2011 12/27/19 [...] Telephone Encounter - Yanira Graves LPN - 05/11/2020 8:32 AM EDT Sorry just fyi * Telephone Encounter - Preethi Colón LPN - 2020 2:29 PM EDT Is this just an FYI? Or did pt want/need anything? * Telephone Encounter - Yanira Graves LPN - 2020 12:46 PM EDT Pt states that she almost threw up the medication that she takes at noon She did not actually vomit This was almost an hour ago She still has a "funny' taste in her mouth Denies any other sx Her stomach has settled down and she does not have any nausea She states that she just has a terrible taste in her mouth She has not rinsed her mouth or got a drink yet Offered to wait while she gets a drink and she did get a drink and it did help a little bit She got a drink of Kaia Lilibeth then and it helped some more She does have some mouth wash she will try that when her comes out of the bathroom * Telephone Encounter - Marie Triplett OSA - 2020 12:44 PM EDT Reason for patient's call: patient would like to speak to a nurse, she just vomited and now has a bad tasted in her mouth. Caller was transferred to [facility] at the nurse line. documented in this encounter Plan of Treatment Upcoming Encounters Date Type Specialty Care Team Description 05/15/2020 Appointment Radiology 05/28/2020 Office Visit Gastroenterology Lyssa Stout CRNP [address] [facility] [address] [phone] 06/03/2020 Hospital Encounter Surgery Janis Hatch, DO [address] [place] [place] [address] [phone] 06/03/2020 Surgery Surgery [facility] Hatch, DO [facility] [place] [address] [phone] COLONOSCOPY FLEXIBLE PROXIMAL DIAGNOSTIC 06/04/2020 Office Visit General Surgery Carter Luong MD 132 [place] [address] 06/10/2020 Office Visit Gynecology Obstetrics Alcon Ortiz, DO [address] [place], [place] [address] 06/11/2020 Telemedicine Wound Care Prakash Honeycutt PA-C [address] [place] [address] 06/30/2020 Office Visit Hematology Oncology Tono Sanchez MD [address] [facility], [place] [address] 07/29/2020 Office Visit Family Medicine Rajwinder Carter, DO [address] [place] [address] [phone] 07/31/2020 Nutrition Services Gastroenterology Melissa Omalley RDN [address] [place] [address] [phone] 09/03/2020 Imaging Radiology Health Maintenance Due Date [...] Documents on File Type Date Recorded 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
--- OUTSIDE RECORDS SUMMARY | 2023-05-10 22:27 | External Medical Summary | Summary of Care ---
Author Name Unknown Organization [facility] Address [facility] [place] [address] Care Team Providers Care Tongsman Name Role Phone JohnbrianRajwinder thacker Primary Care Provider Reason for Visit * Reason Comments Medication Pre-auth linzess Encounter Details Date Type Department Care Team Description 05/04/2020 Telephone Gastroenterology, [facility] 132 [facility] [place] [address] Inocente Gonzalez CRNP 132 [facility] [place] [address] Medication Pre-auth (linzess) Allergies [...] Dosing Unit 5 10/07/2019 Active nystatin (NYSTOP) 038942 UNIT/GM powder Apply topically to affected area [...] breakfast. 90 Cap 3 05/04/2020 Active PEG 0191-FDx-XvSwf-Na Cl-NaSulf (GOLYTELY) 227.1 g PACK Drink 2 [...] pain 01/24/2012 01/17/2017 Genetic Sleep Disorder Research Other*[id number] 05/13/2011 04/07/2016 Obstructive sleep apnea 01/18/2011 12/27/19 [...] encounter Miscellaneous Notes * Telephone Encounter - Devorah Duque PHARM Tech - 05/11/2020 1:05 PM EDT Pt calling to check on status of prior auth. Caller can be reached at [phone]. Advised pt it is the insurance that needs the documentation as she though did not send the prescription. Thank You, Devorah Duque Cpht Eating Disorder Specialist [place] 05/11/2020, 1:05 PM * Telephone Encounter - Florinda Stevenson CPhT - 05/04/2020 3:58 PM EDT Pharmacy calling to inform doctor that the pt's insurance will not pay for this medication without a completed prior authorization. . Please complete with the following information: Patient name: Shaina Bustos ID number: [id number] BIN number: [id number] PCN number: [id number] Group number: [id number] Subscriber name: Shaina Bustos Primary or Secondary Insurance:Primary Medication: Linzess Reason for Request: needs PA Pharmacy: [facility] and phone number: [facility] [phone] What alternative medications does the pharmacy have in stock?: n/a List of medications pt has tried and failed: n/a Thank you, Florinda Stevenson CPhT Eating Disorder Specialist [place]te 05/05/2020, 10:11 AM documented in this encounter Plan of Treatment Upcoming Encounters Date Type Specialty Care Team Description 05/15/2020 Appointment Radiology 05/28/2020 Office Visit [facility]ology [facility] [address] [phone] 06/03/2020 Hospital Encounter Surgery Janis Hatch, DO [address] [facility] [place] [address] [phone] 06/03/2020 Surgery [facility]atch[facility] [place] [address] [phone] COLONOSCOPY FLEXIBLE PROXIMAL DIAGNOSTIC 06/04/2020 Office Visit General Surgery Carter Luong MD [facility] [place] [address] 06/10/2020 Office Visit Gynecology Obstetrics Alcon Ortiz, DO [address] [place] [address] 06/11/2020 Telemedicine Wound Care Prakash Honeycutt PA-C [address], [place] [phone] 06/30/2020 Office Visit Hematology Oncology Tono Sanchez MD [address] [place], [place] [phone] 07/29/2020 Office Visit Family Medicine Rajwinder Carter DO [address] [place] [address] 07/31/2020 Nutrition Services Gastroenterology Melissa Omalley RDN [address] [place] [address] [phone] 09/03/2020 Imaging Radiology Health Maintenance Due Date [...] Documents on File Type Date Recorded Patient Printed Circuit Board Pcb Draftsman Expl anation Advanced Directive service a [...] Relationship Healthcare Agent [facility] p Communication Syed Bustos Spouse Emergency Contact
--- OUTSIDE RECORDS SUMMARY | 2023-05-10 22:27 | External Medical Summary | Summary of Care ---
Author Name Unknown Organization [facility] Address [facility] [place] [address] Care Team Providers Care Tools And Parts Attendant Name Role Phone JohnbrianRajwinder thacker Primary Care Provider Reason for Visit * Reason Comments Medication Pre-auth linzess Encounter Details Date Type Department Care Team Description 05/04/2020 Telephone Gastroenterology, [facility] 132 [facility] [place] [address] Inocente Gonzalez CRNP 132 [facility] [place] [address] Medication Pre-auth (linzess) Allergies [...] Dosing Unit 5 10/07/2019 Active nystatin (NYSTOP) 604799 UNIT/GM powder Apply topically to affected area [...] breakfast. 90 Cap 3 05/04/2020 Active PEG 1103-WHd-BqZfl-Na Cl-NaSulf (GOLYTELY) 227.1 g PACK Drink 2 [...] pain 01/24/2012 01/17/2017 Genetic Sleep Disorder Research Other*[id number] 05/13/2011 04/07/2016 Obstructive sleep apnea 01/18/2011 12/27/19 [...] insurance. Thanks, Jarett Webber PharmD Clinical Pharmacist [facility] [phone] 05/11/2020,3:27 PM * Telephone Encounter - Jarett Webber RPh - 05/11/2020 1:38 PM EDT PA already in process on CMM, ervin: [id number], awaiting response. Thanks, Jarett Webber PharmD Clinical Pharmacist [facility] [phone] 05/11/2020,1:39 PM * Telephone Encounter - Devorah Duque PHARM Tech - 05/11/2020 1:05 PM EDT Pt calling to check on status of prior auth. Caller can be reached at [phone]. Advised pt it is the insurance that needs the documentation as she though dr did not send the prescription. Thank You, Devorah Duque [facility] Household Assistant Chance Murillo 05/11/2020, 1:05 PM * Telephone Encounter - Florinda Stevenson CPhT - 05/04/2020 3:58 PM EDT Pharmacy calling to inform doctor that the pt's insurance will not pay for this medication without a completed prior authorization. . Please complete with the following information: Patient name: Shaina Bustos ID number: [id number] BIN number: [id number] PCN number: [id number] Group number: [id number] Subscriber name: Shaina Bustos Primary or Secondary Insurance:Primary Medication: Linzess Reason for Request: needs PA Pharmacy: [facility] plan and phone number: [facility] [phone] What alternative medications does the pharmacy have in stock?: n/a List of medications pt has tried and failed: n/a Thank you, Florinda Stevenson CPhT Household Assistant [facility] 05/05/2020, 10:11 AM documented in this encounter Plan of Treatment Upcoming Encounters Date Type Specialty Care Team Description 05/15/2020 Appointment Radiology 05/28/2020 Office Visit Gastroenterology Lyssa Stout CRNP [address] [place] [id number] 06/03/2020 Hospital Encounter Surgery Janis Hatch, [address] [place] [address] [phone] 06/03/2020 Surgery Surgery Janis Hatch, [address] [place] [address] [phone] COLONOSCOPY FLEXIBLE PROXIMAL DIAGNOSTIC 06/04/2020 Office Visit General Surgery Carter Luong MD [address] [place] [address] [phone] 06/10/2020 Office Visit Gynecology Obstetrics Alcon Ortiz DO [address] [place], [place] [phone] 06/11/2020 Telemedicine Wound Care Prakash Honeycutt PA-C [address] [place] [address] [phone] 06/30/2020 Office Visit Hematology Oncology Tono Sanchez MD 200 [place] [address] [phone] 07/29/2020 Office Visit Family Medicine Rajwinder Carter DO [address] [place], [place] [address] 07/31/2020 Nutrition Services Gastroenterology Melissa Omalley, [place] [address] [place] [address] [facility] [place] [address] 09/03/2020 Imaging Radiology Health Maintenance [...] Documents on File Type Date Recorded Patient Watch Band Assembler Expl anation Advanced Directive service a [...]
--- OUTSIDE RECORDS SUMMARY | 2023-05-10 22:27 | External Medical Summary | Summary of Care ---
Author Name Unknown Organization [place] [address] Care Team Providers Care Motor Vehicle Parts Interpreter Name Role Phone Rajwinder Carter Primary Care Provider [phone] Reason for Referral * Precert (Routine) Status Reason Specialty Diagnoses / Procedures Referred By Contact Referred To Contact Pending Review Precert Radiology Diagnoses Abdominal pain, unspecified abdominal location Procedures NM HEPATOBILIARY SYSTEM WITH PHARMACOLOGIC INTERVENTION Carter Luong MD [address] [place] [address] Reason for Visit * Reason Comments NEW PATIENT Gallbladder issues * Evaluate & Treat - Unlimited Visits (Within 30 days (routine)) Status Reason Specialty Diagnoses / Procedures Referred By Contact Referred To Contact Pending Review Specialty Services Required General Surgery Diagnoses Biliary colic Selvin Estrada PA-C [address] [facility] [place] [address] Encounter Details Date Type Department Care Team Description 05/07/2020 Office Visit General Surgery, [facility] 132 [place] [address] Carter Luong MD 132 [place] [address] Abdominal pain, unspecified abdominal location*; Chest wall pain Allergies Active Allergy Reactions Severity Noted Date Comments Adhesive Tape Itching 04/29/2020 Penicillins Rash 02/12/2008 documented as of this encounter (statuses as of 2020) Medications Medication Sig Dispensed Refills Start Date [...] Dosing Unit 5 10/07/2019 Active nystatin (NYSTOP) 980630 UNIT/GM powder Apply topically to affected area 3 times a day. 60 g 1 10/16/2019 Active BD PEN NEEDLE MINI U/F 31G X 5 MMIndications:Typ e 2 diabetes mellitus with hemoglobin A1c goal of less than 7.0% ([facility]) use with basaglar at bedtime 100 Each [...] breakfast. 90 Cap 3 05/04/2020 Active PEG 7027-HNx-QlRvy-Na Cl-NaSulf (GOLYTELY) 227.1 g PACK Drink 2 liters two days before colonoscopy and 2 liters the day before colonoscopy 1 Each 0 05/04/2020 Active MetFORMIN (GLUCOPHAGE) 1000 MG TabletIndications :Type 2 diabetes mellitus with hemoglobin A1c goal of less than 7.0% ([facility]) Take 1 Tab by mouth 2 times a day. 180 Tab 1 2020 Active fluconazole (DIFLUCAN) 200 MG Tablet Take 2 Tabs by mouth daily. 10 Tab 0 04/26/2020 0 Discontinue d(End of Procedure) documented as of this encounter (statuses as of 2020) Active Problems Problem Noted Date Complicated UTI [...] as of this encounter (statuses as of 2020) Resolved Problems Problem Noted Date Resolved Date [...] pain 01/24/2012 01/17/2017 Genetic Sleep Disorder Research Other*[id number] 05/13/2011 04/07/2016 Obstructive sleep apnea 01/18/2011 12/27/19 [...] as of this encounter (statuses as of 2020) Immunizations Name Administration Dates Next Due HEP [...] been seen in the emergency room at [facility] on 04/29/20 and 05/05/20. She was admitted [...] BONE performed by Josh Vazquez MD at [facility] DELIVERY 04/20/1982 COLONOSCOPY 04/21/09 repeat in 10 years COLONOSCOPY, DIAGNOSTIC (RECTUM) 10/04/2016 normal bx, repeat 10 yrs/[facility] DENTAL SURGERY PROCEDURE NEC wisdom teeth x 4 DILATION AND CURETTAGE (D&C) EGD, FLEXIBLE, DIAGNOSTIC 10/04/2016 gastritis/[facility] EGD, FLEXIBLE, DIAGNOSTIC 01/11/2018 eso varices, retained food, repeat 1 yr/[facility] PELVIS/HIP JOINT SURGERY NEC teenager aid in walking REPAIR/GRAFT ACHILLES TENDON age 40 aid in walking Current Outpatient Medications Medication Sig Dispense Refill [START ON 2020] MetFORMIN (GLUCOPHAGE) 1000 MG Tablet Take 1 Tab by mouth 2 times a day. 180 Tab 1 linaCLOtide (LINZESS) 290 MCG Capsule Take 1 Cap by mouth daily before breakfast. 90 Cap 3 PEG 8389-BHj-SwDmw-NaCl-NaSulf (GOLYTELY) 227.1 g PACK Drink 2 liters [...] at bedtime 100 Each 10 nystatin (NYSTOP) 682455 UNIT/GM powder Apply topically to affected area [...] She wants to have that done in [place] as well since she cannot be moved [...] be a 20. documented in this encounter Miscellaneous Notes * Addendum Note - Kemi Zepeda LPN - 2020 8:33 AM EDT Addended by: KEMI ZEPEDA on: 2020 08:33 AM Modules accepted: Orders documented in this encounter Plan of Treatment Upcoming Encounters Date Type Specialty Care Team Description 05/28/2020 Office Visit Gastroenterology Lyssa Stout CRNP [address] [place] [address] [phone] 06/03/2020 Hospital Encounter [facility] [place] [address] [phone] 06/03/2020 Surgery [facility] Hatch[facility] DO [facility] [place] [address] [phone] COLONOSCOPY FLEXIBLE PROXIMAL DIAGNOSTIC 06/10/2020 Office Visit Gynecology Obstetrics Alcon Ortiz DO [address] [place], [place] [address] 06/11/2020 Telemedicine Wound Care Prakash Honeycutt PA-C [address] [place], [place] [address] 06/30/2020 Office Visit Hematology Oncology Tono Sanchez MD 200 [place] [address] [phone] 07/29/2020 Office Visit Family Medicine Rajwinder Carter DO [address] [place] [address] [phone] 07/31/2020 Nutrition Services Gastroenterology Melissa Omalley RDN [address] [place] [address] [phone] 09/03/2020 Imaging Radiology Scheduled Orders Name Type Priority Associated Diagnoses Orde r Schedule NM HEPATOBILIARY SYSTEM WITH PHARMACOLOGIC INTERVENTION Medical Imaging Routine Abdominal pain, unspecified abdominal location Ordered: 2020 Health Maintenance Due Date Last Done Comments [...] Documents on File Type Date Recorded Patient Upper Cutter Machine Expl 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
--- OUTSIDE RECORDS SUMMARY | 2023-05-10 22:27 | External Medical Summary | Summary of Care ---
Author Name Unknown Organization [place] [address] Care Team Providers Care School Psychometrist Name Role Phone JohnbrianRajwinder thacker Primary Care Provider [phone] Reason for Visit * Reason Comments Pre Cert/Prior Auth Encounter Details Date Type Department Care Team Description 05/07/2020 Telephone Gastroenterology, [facility] 132 [facility] [place] [address] Inocente Gonzalez CRNP 132 [facility] [place] [address] Pre Cert/Prior Auth Allergies [...] Dosing Unit 5 10/07/2019 Active nystatin (NYSTOP) 070346 UNIT/GM powder Apply topically to affected area [...] breakfast. 90 Cap 3 05/04/2020 Active PEG 0669-SFv-SlJjr-NaC l-NaSulf (GOLYTELY) 227.1 g PACK Drink 2 [...] pain 01/24/2012 01/17/2017 Genetic Sleep Disorder Research Other*[id number] 05/13/2011 04/07/2016 Obstructive sleep apnea 01/18/2011 12/27/19 [...] 8:25 AM EDT Received a fax from [employer] for Cover my Meds for this patients linraimundos needs a prior auth Vera: [id number] documented in this encounter Plan of Treatment Upcoming Encounters Date Type Specialty Care Team Description 05/07/2020 Office Visit General Surgery Carter Luong MD [address] [place] [address] [phone] 05/28/2020 Office Visit Gastroenterology Lyssa Stout CRNP [address] [place] [address] [phone] 06/03/2020 Hospital Encounter Surgery Janis Hatch, DO [address] [place] [address] [phone] 06/03/2020 Surgery Surgery Janis Hatch, DO [address] [place] [address] [phone] COLONOSCOPY FLEXIBLE PROXIMAL DIAGNOSTIC 06/10/2020 Office Visit Gynecology Obstetrics Angel Tyreseshahzad Pablo DO [address] [place] [address] 06/11/2020 Telemedicine Wound Care Prakash Honeycutt PA-C [address] [place], [place] [address] 06/30/2020 Office Visit Hematology Oncology Tono Sanchez MD [address] [place] [address] [phone] 07/29/2020 Office Visit Family Medicine Rajwinder Carter DO [address] [place] [address] 07/31/2020 Nutrition Services Gastroenterology Melissa Omalley, [place] [address] [place] [address] 09/03/2020 Imaging Radiology Health Maintenance [...] on File Type Date Recorded 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
--- OUTSIDE RECORDS SUMMARY | 2023-05-10 22:27 | External Medical Summary | Summary of Care ---
Author Name Unknown Organization [facility] Address [place] [address] Care Team Providers Care Floral Specialist Name Role Phone Rajwinder Carter DO Primary Care Provider [phone] Reason for Visit * Reason Comments Advice fyi Encounter Details Date Type Department Care Team Description 2020 Telephone [facility] [address] [place] [address] Rajwinder Carter DO [address] [place] [address] [phone] Advice (fyi) Allergies Active Allergy Reactions Severity [...] Dosing Unit 5 10/07/2019 Active nystatin (NYSTOP) 805333 UNIT/GM powder Apply topically to affected area [...] breakfast. 90 Cap 3 05/04/2020 Active PEG 9844-LAu-TwTig-NaC l-NaSulf (GOLYTELY) 227.1 g PACK Drink 2 liters two days before colonoscopy and 2 liters the day before colonoscopy 1 Each 0 05/04/2020 Active MetFORMIN (GLUCOPHAGE) 1000 MG TabletIndications: Type 2 diabetes mellitus with hemoglobin A1c goal of less than 7.0% ([facility]) Take 1 Tab by mouth 2 [...] pain 01/24/2012 01/17/2017 Genetic Sleep Disorder Research Other*[id number] 05/13/2011 04/07/2016 Obstructive sleep apnea 01/18/2011 12/27/19 [...] in her mouth. Caller was transferred to [facility] at the nurse line. documented in this encounter Plan of Treatment Upcoming Encounters Date Type Specialty Care Team Description 05/15/2020 Appointment Radiology 05/28/2020 Office Visit Gastroenterology Lyssa Stout CRNP [address] [facility] [place] [address] [phone] 06/03/2020 Hospital Encounter Surgery Janis Hatch, DO [address] [place] [place] [address] [phone] 06/03/2020 Surgery [facility] Hatch, DO [facility] [place] [address] [phone] COLONOSCOPY FLEXIBLE PROXIMAL DIAGNOSTIC 06/04/2020 Office Visit General Surgery Carter Luong MD 132 [facility] [place] [address] 06/10/2020 Office Visit Gynecology Obstetrics Alcon Ortiz, DO [address] [place], [place] [address] 06/11/2020 Telemedicine Wound Care Prakash Honeycutt PA-C [address] [place] [address] 06/30/2020 Office Visit Hematology Oncology Tono Sanchez MD 200 [facility], [place] [address] 07/29/2020 Office Visit Family Medicine Rajwinder Carter, DO [address] [place] [address] [phone] 07/31/2020 Nutrition Services Gastroenterology Melissa Omalley RDN [address] [place] [address] [phone] 09/03/2020 Imaging Radiology Health Maintenance Due Date [...] Documents on File Type Date Recorded 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
--- OUTSIDE RECORDS SUMMARY | 2023-05-10 22:28 | External Medical Summary ---
Author Name Unknown Address [facility] [place] [address] Phone Organization K01:[facility] [address] [facility] [place] [address] Laboratory Report Ordering Provider Test Date Status URIELSHERWIN 05/04/2020 21:11:00 Final Observation Date Value Abnormality Reference (Units ) Status BUN 05/04/2020 21:56 11 6-20 (mg/dL) Final Creatinine 05/04/2020 21:56 0.6 0.5-1.0 (mg/ dL) Final E Glom Filt Rate 05/04/2020 21:56 >60.0 >60 Final Performing Location [facility] [address] [facility] [place] [address]
--- OUTSIDE RECORDS SUMMARY | 2023-05-10 22:28 | External Medical Summary ---
Author Name Unknown Address [facility] [address] [place] [id number] Phone Organization K01:[place] [id number] Laboratory Report Ordering Provider Test Date Status SHERWIN TREVINO 05/04/2020 21:11:00 Final Observation Date Value Abnormality Reference (Units ) Status Lipase 05/04/2020 21:56 19 13-60 (U/L) F inal Performing Location [address] [address]
--- OUTSIDE RECORDS SUMMARY | 2023-05-10 22:28 | External Medical Summary | Summary of Care ---
Author Name Unknown Organization [place] [address] Care Team Providers Care Credit Risk Manager Name Role Phone JohnbrianRajwinder thacker Primary Care Provider [phone] Reason for Visit * Reason Comments NEW PATIENT * Evaluate & Treat - Unlimited Visits (Within 10 days (routine)) Status Reason Specialty Diagnoses / Procedures Referred By Contact Referred To Contact Pending Review Specialty Services Required Wound Care Diagnoses Cellulitis of right toe Gloria Jeffers DO [address] [place] [address] Encounter Details Date Type Department Care Team Description 04/30/2020 Office Visit Wound Care, [place] [address] [place] [address] Prakash Honeycutt PA-C [address] [place] [address] [phone] Open wound of right great toe, subsequent encounter*; DM type 2 with diabetic peripheral neuropathy ([facility]); Obesity, morbid (more than 100 lbs over ideal weight or BMI > 40) ([facility]) Allergies Active Allergy Reactions Severity Noted Date Comments Adhesive Tape Itching 04/29/2020 Penicillins Rash 02/12/2008 documented as of this encounter (statuses as of 05/05/2020) Medications Medication Sig Dispensed Refills Start Date End Date Status CENTRUM SILVER PO TABS 1 tab daily 1 Tab 0 2 Suspended vitamin c [...] 120 Vial 11 0 Suspended Additional Information Semaglutide, 1 MG/DOSE, (OZEMPIC, 1 MG/DOSE,) 2 MG/1.5ML SOPN Inject 1 mg under the skin once a week. DX:E11.9 2 Pre-filled Pen Syringe Dosing Unit 5 0 Suspended Additional Information nystatin (NYSTOP) 768001 UNIT/GM powder Apply topically to affected area 3 times a day. 60 g 1 0 Suspended Additional Information BD PEN NEEDLE MINI U/F 31G X 5 MMIndications:Typ e 2 diabetes mellitus with hemoglobin A1c goal of less than 7.0% ([facility]) use with basaglar at bedtime 100 Each 10 0 Suspended Additional Information Albuterol Sulfate (ALBUTEROL HFA) 108 (90 BASE) MCG/ACT inhalerIndication s:Intermittent asthma with reliever use up to twice per week without complication Inhale 2 Puffs by mouth every 4 hours as needed for Cough or Wheezing. With spacer 16 g 1 0 Suspended Additional Information gabapentin (NEURONTIN) 300 MG Capsule One pill in am, one midday, two in pm, 180 Cap 5 0 Suspended Additional Information nadolol (CORGARD) 20 MG Tablet Take 2 Tabs by mouth daily. 180 Tab 1 0 Suspended Additional Information ferrous sulfate (FEOSOL) 325 (65 FE) MG Tablet Take 1 Tab by mouth 2 times a day. 60 Tab 5 0 Suspended Blood Glucose Monitoring Suppl (BLOOD GLUCOSE MONITOR SYSTEM) w/Device KIT Use to test once per day. 1 Kit 0 0 Suspended Additional Information Glucose Blood (BLOOD GLUCOSE TEST) STRP Use to test once per day. 100 Strip 3 0 Suspended Additional Information Lancets MISC Use to test once per day. 100 Each 3 0 Suspended Additional Information potassium chloride ER 10 MEQ TBCRIndications:H ypokalemia TAKE 1 TABLET EVERY DAY WITH FOOD 90 Tab 1 0 Suspended Additional Information SM ASPIRIN ADULT LOW STRENGTH 81 MG TBEC TAKE 1 TABLET BY MOUTH ONCE DAILY 90 Tab 3 0 Suspended Additional Information traZODone (DESYREL) 50 MG TabletIndications :Sleep disturbances Take 1 Tab by mouth at bedtime. 90 Tab 1 0 Suspended Additional Information escitalopram (LEXAPRO) 20 MG TabletIndications :Recurrent major depressive disorder, in partial remission (HCC) Take 1 Tab by mouth daily. 90 Tab 1 0 Suspended Additional Information Dulaglutide (TRULICITY) 1.5 MG/0.5ML SOPNIndications:T ype 2 diabetes mellitus with hemoglobin A1c goal of less than 7.0% (HCC) Inject 1 syringeful once weekly 6 mL 1 0 Suspended Additional Information atorvaSTATin (LIPITOR) 40 MG TabletIndications :Dyslipidemia, goal LDL below 70 TAKE 1 TABLET BY MOUTH EVERY NIGHT AT BEDTIME 90 Tab 1 0 Suspended Additional Information MetFORMIN (GLUCOPHAGE) 1000 MG TabletIndications :Type 2 diabetes mellitus with hemoglobin A1c goal of less than 7.0% (HCC) TAKE 1 TABLET BY MOUTH TWICE DAILY 180 Tab 1 0 Suspended Additional Information furosemide (LASIX) 20 MG TabletIndications :Localized edema,Venous stasis dermatitis of both lower extremities TAKE 1 TABLET BY MOUTH ONCE DAILY NEEDED FOR EDEMA 30 Tab 5 0 Suspended Additional Information levothyroxine (LEVOXYL) 200 MCG Tablet Take 1 Tab by mouth daily. 90 Tab 3 0 Suspended Additional Information pantoprazole (PROTONIX) 20 MG TBECIndications:G astroesophageal reflux disease, esophagitis presence not specified,NAFLD (nonalcoholic fatty liver disease),Other cirrhosis of liver (HCC) TAKE 2 TABLETS BY MOUTH ONCE DAILY 180 Tab 1 0 Suspended Additional Information insulin glargine (LANTUS SOLOSTAR) 100 UNIT/ML SOPNIndications:T ype 2 diabetes mellitus with hemoglobin A1c goal of less than 7.0% (HCC) inject 24 units under the skin at bedtime 15 mL 5 0 Suspended Additional Information Patient taking differently: 30 Units, inject 30 units under the skin at bedtime, Reported on 04/14/2020 7:39 PM oxybutynin (DITROPAN) 5 MG Tablet TAKE 1 TABLET BY MOUTH TWICE DAILY 60 Tab 5 0 Suspended Additional Information linaCLOtide (LINZESS) 145 MCG Capsule Take 1 Cap by mouth daily before breakfast. 90 Cap 3 0 05/04/20 20 Discontinued tamsulosin (FLOMAX) 0.4 MG Capsule TAKE 1 CAPSULE BY MOUTH ONCE DAILY 90 Cap 1 0 Suspended Additional Information cyclobenzaprine (FLEXERIL) 10 MG Tablet Take 1 Tab by mouth every night at bedtime. 30 Tab 0 0 Suspended Additional Information fluconazole (DIFLUCAN) 200 MG Tablet Take 2 Tabs by mouth daily. 10 Tab 0 0 Suspended Additional Information mupirocin calcium (BACTROBAN) 2 % ointment Apply topically to affected area 2 times a day. Apply to right toe affected area cover with dressing. 22 g 0 0 Suspended Additional Information silver sulfadiazine (SILVADENE) 1 % creamIndications: Open wound of right great toe, subsequent encounter Apply topically to affected area daily. Apply to wound daily with dressing 50 g 3 0 Suspended Additional Information Hospital, Clinic, or Other Facility Administered Medication Ordered Dose Route Frequency Start Date End Date Status silver sulfadiazine (SILVADENE) 1 % creamIndications:Open wound of right great toe, subsequent encounter TOP ONCE 04/30/2020 05/01/2020 Ende d documented as of this encounter (statuses as of 05/05/2020) Active Problems Problem Noted Date Complicated UTI (urinary tract infection ) 04/23/2020 Pain of upper abdomen 04/23/2020 Cellulitis of right toe 04/18/2020 Cellulitis [...] as of this encounter (statuses as of 05/05/2020) Resolved Problems Problem Noted Date Resolved Date History of kidney stones 04/08/2019 020 History [...] pain 01/24/2012 01/17/2017 Genetic Sleep Disorder Research Other*[id number] 05/13/2011 04/07/2016 Obstructive sleep apnea 01/18/2011 12/27/19 [...] as of this encounter (statuses as of 05/05/2020) Immunizations Name Administration Dates Next Due HEP [...] have Coronavirus / COVID-19? No / Unsure 04/30/2020 3:33 PM EDT documented as of this encounter [...] great toe previously treated by podiatry at [facility], the R great toenail removed by her podiatristand she starteddeveloping purulent drainage from around the toenail bed and pad of the toe along with some blood. She was admitted to [facility] 04/14/20- 04/25/20 for R 1st toe infection [...] and Time: 04/10/2020 3:31 PM Collected By: UNSPECIFIED,CUP MACHINE OPERATOR Received: 04/10/2020 3:32 PM CULTURE, WOUND, SUPERFICIAL, AEROBIC Order: [id number] Status: Final result Visible to patient: No [...] Ulcer Anterior;Right;Dorsal;1st Toe Plantar (Active) Wound Image 04/30/2020 3:00 PM Secondary Dressing Present (removed today) GAUZE 04/30/2020 3:00 PM Tertiary Dressing Present (removed today) None 04/30/2020 3:00 PM Wound Length (cm) 2 cm 04/30/2020 3:00 PM Wound Width (cm) 2 cm 04/30/2020 3:00 PM Wound Depth (cm) 0.1 cm 04/30/2020 3:00 PM Drainage serous, mild 04/30/2020 3:00 PM Wound Surface Area (cm^2) 4 cm^2 04/30/2020 3:00 PM Wound Volume (cm^3) 0.4 cm^3 04/30/2020 3:00 PM ASSESSMENT/PLAN: 1.Ward Grade 2 diabetic ulcer of [...] on RLE and elevation for edema control. Plan: Silver sulfadiazine 1 % ex crea Follow-up: 6 weeks F/U R 1st toe [...] Office [facility] [place] [address] [phone] 06/03/2020 Hospital Encounter Surgery Janis Hatch DO [address] [place] [address] [phone] 06/03/2020 Surgery Surgery Janis Hatch, DO [address] [place] [address] [phone] COLONOSCOPY FLEXIBLE PROXIMAL DIAGNOSTIC 06/10/2020 Office Visit Gynecology Obstetrics Alcon Ortiz DO [address] [place] [address] [phone] 06/11/2020 Telemedicine Wound Care Prakash Honeycutt PA-C [address], [place] [id number] 06/30/2020 Office Visit Hematology Oncology Tono Sanchez MD [address] [place] [address] [phone] 07/29/2020 Office Visit Family Medicine Rajwinder Carter DO [address] [facility], [place] [address] [phone] 07/31/2020 Nutrition Services Gastroenterology Melissa Omalley, RDN [address] [facility] [place] [address] [phone] 09/03/2020 Imaging Radiology Health Maintenance Due Date [...] (HCC) Morbid obesity documented in this encounter Advance Directives Documents on File Type Date Recorded Patient Senior Solutions Consultant 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 Advanced Directive 04/15/2020 12:36 PM Advanced Directive 04/23/2020 8:54 AM Advanced Directive Advanced Directive Latest Code Status on File Code Status Date Activated Date Inactivated Comments Full Code 05/05/2020 5:31 AM This order reflects the patients wishes [...]
--- OUTSIDE RECORDS SUMMARY | 2023-05-10 22:28 | External Medical Summary | Summary of Care ---
Author Name Unknown Organization [place] [address] Care Team Providers Care Coil Winder Strap Name Role Phone Rajwinder Carter DO Primary Care Provider Reason for Visit * Reason Comments Referral Encounter Details Date Type Department Care Team Description 05/06/2020 Telephone General Surgery, [place] [address] [place] [address] Tanya Armstrong mining manager Allergies Active Allergy Reactions Severity Noted Date Comments Adhesive Tape Itching 04/29/2020 Penicillins Rash 02/12/2008 documented as of this encounter (statuses as of 05/06/2020) Medications Medication Sig Dispensed Refills Start Date [...] Dosing Unit 5 10/07/2019 Active nystatin (NYSTOP) 363134 UNIT/GM powder Apply topically to affected area [...] breakfast. 90 Cap 3 05/04/2020 Active PEG 9054-SVe-KfHxv-NaC l-NaSulf (GOLYTELY) 227.1 g PACK Drink 2 liters two days before colonoscopy and 2 liters the day before colonoscopy 1 Each 0 05/04/2020 Active MetFORMIN (GLUCOPHAGE) 1000 MG TabletIndications: Type 2 diabetes mellitus with hemoglobin A1c goal of less than 7.0% ([facility]) Take 1 Tab by mouth 2 times a day. 180 Tab 1 2020 Active documented as of this encounter (statuses as of 05/06/2020) Active Problems Problem Noted Date Complicated UTI [...] as of this encounter (statuses as of 05/06/2020) Resolved Problems Problem Noted Date Resolved Date [...] pain 01/24/2012 01/17/2017 Genetic Sleep Disorder Research Other*[id number] 05/13/2011 04/07/2016 Obstructive sleep apnea 01/18/2011 12/27/19 [...] as of this encounter (statuses as of 05/06/2020) Immunizations Name Administration Dates Next Due HEP [...] Miscellaneous Notes * Telephone Encounter - Kenya Rosales OSA - 05/06/2020 12:48 PM EDT Contacted patient to offer an appointment with general surgery for evaluation of her gallbladder. She accepted an appointment with on 05/07/20. Patient recently had imaging done. Kenya Rosales Patient Access Clinical Appeals Auditor General Surgery Department [facility] documented in this encounter Plan of Treatment Upcoming Encounters Date Type Specialty Care Team Description 05/07/2020 Office Visit General Surgery Carter Luong MD [address] [address] [phone] 05/28/2020 Office Visit Gastroenterology Lyssa Stout CRNP [address] [address] [phone] 06/03/2020 Hospital Encounter Surgery Janis Hatch DO [address] [place] [address] [phone] 06/03/2020 Surgery Surgery Janis Hatch, [address] [place] [address] [phone] COLONOSCOPY FLEXIBLE PROXIMAL DIAGNOSTIC 06/10/2020 Office Visit Gynecology Obstetrics Alcon Ortiz, DO [address] [place] [facility] [place] [address] 06/11/2020 Telemedicine Wound Care Prakash Honeycutt PA-Niya [address] [place], [place] [address] 06/30/2020 Office Visit Hematology Oncology Tono Sanchez MD [address] [place] [address] [phone] 07/29/2020 Office Visit Family Medicine Rajwinder Carter DO [address] [place], [place] [address] 07/31/2020 Nutrition Services Gastroenterology Melissa Omalley, RDN [address] [facility] [place] [address] 09/03/2020 Imaging Radiology Health Maintenance [...] Documents on File Type Date Recorded Patient Cephalometric Technician Expl anation Advanced Directive service a [...]
--- OUTSIDE RECORDS SUMMARY | 2023-05-10 22:28 | External Medical Summary | Summary of Care ---
Author Name Unknown Organization [facility] Address [facility] [place] [address] Care Team Providers Care Internal Investigator Name Role Phone JohnbrianRajwnider thacker Primary Care Provider [phone] Reason for Visit * Reason Comments Medication Question Encounter Details Date Type Department Care Team Description 05/04/2020 Telephone [facility] [address] [facility] [place] [address] Inocente [place] CRNP [address] [place] [place] [address] Medication Question Allergies Active Allergy Reactions Severity Noted Date Comments Adhesive Tape Itching 04/29/2020 Penicillins Rash 02/12/2008 documented as of this encounter (statuses as of 05/05/2020) Medications Medication Sig Dispensed Refills Start Date End Date Status CENTRUM SILVER PO TABS 1 tab daily 1 Tab 0 05/25/2012 Suspended vitamin c (ASCORBIC ACID) 500 MG Tablet Take 500 mg by mouth daily. 0 Suspended fluticasone (FLONASE) 50 MCG/ACT nasal sprayIndications:S inus congestion INSTILL 2 SPRAYS INTO EACH NOSTRIL DAILY DIRECTED 16 g 5 08/01/2019 Suspended Additional Information albuterol sulfate (PROVENTIL) (2.5 MG/3ML) 0.083% nebulizer solutionIndication s:Pulmonary vascular congestion Inhale 1 Vial via nebulizer every 6 hours as needed for Wheezing. 120 Vial 11 10/02/2019 Suspended Additional Information Semaglutide, 1 MG/DOSE, (OZEMPIC, 1 MG/DOSE,) 2 MG/1.5ML SOPN Inject 1 mg under the skin once a week. DX:E11.9 2 Pre-filled Pen Syringe Dosing Unit 5 10/07/2019 Suspended Additional Information nystatin (NYSTOP) 623124 UNIT/GM powder Apply topically to affected area 3 times a day. 60 g 1 10/16/2019 Suspended Additional Information BD PEN NEEDLE MINI U/F 31G X 5 MMIndications:Type 2 diabetes mellitus with hemoglobin A1c goal of less than 7.0% ([facility]) use with basaglar at bedtime 100 Each 10 10/29/2019 Suspended Additional Information Albuterol Sulfate (ALBUTEROL HFA) 108 (90 BASE) MCG/ACT inhalerIndications :Intermittent asthma with reliever use up to twice per week without complication Inhale 2 Puffs by mouth every 4 hours as needed for Cough or Wheezing. With spacer 16 g 1 11/06/2019 Suspended Additional Information gabapentin (NEURONTIN) 300 MG Capsule One pill in am, one midday, two in pm, 180 Cap 5 11/07/2019 Suspended Additional Information nadolol (CORGARD) 20 MG Tablet Take 2 Tabs by mouth daily. 180 Tab 1 11/07/2019 Suspended Additional Information ferrous sulfate (FEOSOL) 325 (65 FE) MG Tablet Take 1 Tab by mouth 2 times a day. 60 Tab 5 11/14/2019 Suspended Blood Glucose Monitoring Suppl (BLOOD GLUCOSE MONITOR SYSTEM) w/Device KIT Use to test once per day. 1 Kit 0 11/19/2019 Suspended Additional Information Glucose Blood (BLOOD GLUCOSE TEST) STRP Use to test once per day. 100 Strip 3 11/19/2019 Suspended Additional Information Lancets MISC Use to test once per day. 100 Each 3 11/19/2019 Suspended Additional Information potassium chloride ER 10 MEQ TBCRIndications:Hy pokalemia TAKE 1 TABLET EVERY DAY WITH FOOD 90 Tab 1 12/04/2019 Suspended Additional Information SM ASPIRIN ADULT LOW STRENGTH 81 MG TBEC TAKE 1 TABLET BY MOUTH ONCE DAILY 90 Tab 3 12/04/2019 Suspended Additional Information traZODone (DESYREL) 50 MG TabletIndications: Sleep disturbances Take 1 Tab by mouth at bedtime. 90 Tab 1 12/04/2019 Suspended Additional Information escitalopram (LEXAPRO) 20 MG TabletIndications: Recurrent major depressive disorder, in partial remission (HCC) Take 1 Tab by mouth daily. 90 Tab 1 12/04/2019 Suspended Additional Information Dulaglutide (TRULICITY) 1.5 MG/0.5ML SOPNIndications:Ty pe 2 diabetes mellitus with hemoglobin A1c goal of less than 7.0% (HCC) Inject 1 syringeful once weekly 6 mL 1 12/04/2019 Suspended Additional Information atorvaSTATin (LIPITOR) 40 MG TabletIndications: Dyslipidemia, goal LDL below 70 TAKE 1 TABLET BY MOUTH EVERY NIGHT AT BEDTIME 90 Tab 1 12/30/2019 Suspended Additional Information MetFORMIN (GLUCOPHAGE) 1000 MG TabletIndications: Type 2 diabetes mellitus with hemoglobin A1c goal of less than 7.0% (HCC) TAKE 1 TABLET BY MOUTH TWICE DAILY 180 Tab 1 01/06/2020 Suspended Additional Information furosemide (LASIX) 20 MG TabletIndications: Localized edema,Venous stasis dermatitis of both lower extremities TAKE 1 TABLET BY MOUTH ONCE DAILY NEEDED FOR EDEMA 30 Tab 5 01/28/2020 Suspended Additional Information levothyroxine (LEVOXYL) 200 MCG Tablet Take 1 Tab by mouth daily. 90 Tab 3 02/20/2020 Suspended Additional Information pantoprazole (PROTONIX) 20 MG TBECIndications:Ga stroesophageal reflux disease, esophagitis presence not specified,NAFLD (nonalcoholic fatty liver disease),Other cirrhosis of liver (HCC) TAKE 2 TABLETS BY MOUTH ONCE DAILY 180 Tab 1 02/26/2020 Suspended Additional Information insulin glargine (LANTUS SOLOSTAR) 100 UNIT/ML SOPNIndications:Ty pe 2 diabetes mellitus with hemoglobin A1c goal of less than 7.0% (HCC) inject 24 units under the skin at bedtime 15 mL 5 03/25/2020 Suspended Additional Information Patient taking differently: 30 Units, inject 30 units under the skin at bedtime, Reported on 04/14/2020 7:39 PM oxybutynin (DITROPAN) 5 MG Tablet TAKE 1 TABLET BY MOUTH TWICE DAILY 60 Tab 5 03/27/2020 Suspended Additional Information tamsulosin (FLOMAX) 0.4 MG Capsule TAKE 1 CAPSULE BY MOUTH ONCE DAILY 90 Cap 1 04/22/2020 Suspended Additional Information cyclobenzaprine (FLEXERIL) 10 MG Tablet Take 1 Tab by mouth every night at bedtime. 30 Tab 0 04/22/2020 Suspended Additional Information fluconazole (DIFLUCAN) 200 MG Tablet Take 2 Tabs by mouth daily. 10 Tab 0 04/26/2020 Suspended Additional Information Patient not taking. Reported on 05/04/2020 2:23 PM mupirocin calcium (BACTROBAN) 2 % ointment Apply topically to affected area 2 times a day. Apply to right toe affected area cover with dressing. 22 g 0 04/25/2020 Suspended Additional Information silver sulfadiazine (SILVADENE) 1 % creamIndications:O pen wound of right great toe, subsequent encounter Apply topically to affected area daily. Apply to wound daily with dressing 50 g 3 04/30/2020 Suspended Additional Information linaCLOtide (LINZESS) 290 MCG Capsule Take 1 Cap by mouth daily before breakfast. 90 Cap 3 05/04/2020 Suspended Additional Information PEG 8991-CXa-AfUbw-NaC l-NaSulf (GOLYTELY) 227.1 g PACK Drink 2 liters two days before colonoscopy and 2 liters the day before colonoscopy 1 Each 0 05/04/2020 Suspended Additional Information documented as of this [...] pain 01/24/2012 01/17/2017 Genetic Sleep Disorder Research Other*[id number] 05/13/2011 04/07/2016 Obstructive sleep apnea 01/18/2011 12/27/19 [...] have Coronavirus / COVID-19? No / Unsure 05/04/2020 1:55 PM EDT documented as of this encounter [...] Telephone Encounter - Brianne Triana RN - 05/05/2020 9:53 AM EDT Jug is preferred to split gallon dosing. I called and clarified this script. * Telephone Encounter - Florinda Stevenson CPhT - 05/04/2020 4:00 PM EDT pharmacy calling on medication Golytely pack the can get the Packs only the jug please review Thank you, Florinda Stevenson CPhT Plastic Straightening Roll Operator [facility] 05/04/2020, 4:02 PM documented in this encounter Plan of Treatment Upcoming Encounters Date Type Specialty Care Team Description 05/28/2020 Office Visit Gastroenterology Lyssa Stout CRNP [address] [place] [address] 06/03/2020 Hospital Encounter Surgery Janis Hatch DO [address] [place] [address] [phone] 06/03/2020 Surgery Surgery Janis Hatch, DO [address] [facility] [place] [address] [phone] COLONOSCOPY FLEXIBLE PROXIMAL DIAGNOSTIC 06/10/2020 Office Visit Gynecology Obstetrics Angel Tyreseshahzad Pablo, DO [address] [place] [address] 06/11/2020 Telemedicine Wound Care Prakash Honeycutt PA-C [address] [place] [address] 06/30/2020 Office Visit Hematology Oncology Tono Sanchez MD [address] [place] [address] [phone] 07/29/2020 Office Visit Family Medicine Rajwinder Carter, DO [address] [place] [address] [phone] 07/31/2020 Nutrition Services Gastroenterology Melissa Omalley, RDN [address] [place], [place] [address] 09/03/2020 Imaging Radiology Health Maintenance Due Date [...] Documents on File Type Date Recorded 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
--- OUTSIDE RECORDS SUMMARY | 2023-05-10 22:28 | External Medical Summary | Summary of Care ---
Author Name Unknown Organization [place] [address] Care Team Providers Care Neuro Psych Sales Specialist Name Role Phone JohnbrianRajwinder thacker Primary Care Provider [phone] Reason for Visit * Reason Comments Pre Cert/Prior Auth Encounter Details Date Type Department Care Team Description 05/07/2020 Telephone Gastroenterology, [facility] 132 [facility] [place] [address] Inocente Gonzalez CRNP 132 [facility] [place] [address] Pre Cert/Prior Auth Allergies [...] Dosing Unit 5 10/07/2019 Active nystatin (NYSTOP) 723880 UNIT/GM powder Apply topically to affected area [...] breakfast. 90 Cap 3 05/04/2020 Active PEG 6308-TPt-HvPhr-NaC l-NaSulf (GOLYTELY) 227.1 g PACK Drink 2 [...] pain 01/24/2012 01/17/2017 Genetic Sleep Disorder Research Other*[id number] 05/13/2011 04/07/2016 Obstructive sleep apnea 01/18/2011 12/27/19 [...] encounter Miscellaneous Notes * Telephone Encounter - Sabine Valencia LPN - 05/07/2020 8:25 AM EDT Received a fax from [employer] for Cover my Meds for this patients linzess needs a prior auth Vera: [id number] documented in this encounter Plan of Treatment Upcoming Encounters Date Type Specialty Care Team Description 05/07/2020 Office Visit General Surgery Carter Luong MD [address] [place] [address] [phone] 05/28/2020 Office Visit Gastroenterology Lyssa Stout CRNP [address] [place] [address] [phone] 06/03/2020 Hospital Encounter Surgery Janis Hatch DO [address] [place] [address] [phone] 06/03/2020 Surgery Surgery Janis Hatch, DO [address] [place] [address] [phone] COLONOSCOPY FLEXIBLE PROXIMAL DIAGNOSTIC 06/10/2020 Office Visit Gynecology Obstetrics Alcon Ortiz, DO [address] [facility] [place] [id number] 06/11/2020 Telemedicine Wound Care Prakash Honeycutt PA-C [address] [place] [address] 06/30/2020 Office Visit Hematology Oncology Tono Sanchez MD 200 [facility] [place] [address] [phone] 07/29/2020 Office Visit Family Medicine Rajwinder Carter DO [address] [place], [place] [phone] 07/31/2020 Nutrition Services Gastroenterology Melissa Omalley, [place] [address] [place] [address] [facility] [place] [address] 09/03/2020 Imaging Radiology Health Maintenance [...] Documents on File Type Date Recorded Patient Shell Molder Expl anation Advanced Directive service a kerri [...]
--- OUTSIDE RECORDS SUMMARY | 2023-05-10 22:28 | External Medical Summary ---
Author Name Unknown Address Unknown Organization R:IT USE ONLY!!! Laboratory Report Ordering Provider Test Date Status ART CERVANTES 05/05/2020 08:49:00 Final Observation Date Value Abnormality Reference (Units ) Status Glucose Point of Care 05/05/2020 08:53 186 Above high normal 70-120 (mg/dL) Final Performing Location IT USE ONLY!!!
--- OUTSIDE RECORDS SUMMARY | 2023-05-10 22:28 | External Medical Summary ---
Author Name Unknown Address Unknown Organization R:IT USE ONLY!!! Laboratory Report Ordering Provider Test Date Status ART CERVANTES 05/05/2020 17:05:00 Final Observation Date Value Abnormality Reference (Units ) Status Glucose Point of Care 05/05/2020 17:14 272 Above high normal 70-120 (mg/dL) Final Performing Location IT USE ONLY!!!
--- OUTSIDE RECORDS SUMMARY | 2023-05-10 22:28 | External Medical Summary ---
Author Name Unknown Address [facility] [place] [address] Phone Organization K01:[place] [address] [address] [place] [id number] Laboratory Report Ordering Provider Test Date Status REYES JOHNSON 05/05/2020 01:20:00 Final Observation Date Value Abnormality Reference (Units) Status Source 05/05/2020 03:30 CATHETERIZED URINE Final Bacteria identified in Unspecified specimen by Culture 05/06/2020 13:47 10,000 TO 100,000 COLONIES/ML YEAST Abnormal Final REPORT STATUS 05/07/2020 14:52 05/07/2020 FINAL Final Performing Location [place] [address] [address] [facility] [address]
--- OUTSIDE RECORDS SUMMARY | 2023-05-10 22:28 | External Medical Summary ---
Author Name Unknown Address [facility] N [facility] [place] [address] Phone Organization K01:[place] [id number] Laboratory Report Ordering Provider Test Date Status URIELPAIGE ALVESON 05/04/2020 21:34:00 Final Observation Date Value Abnormality Reference (Units ) Status Lactic Acid 05/04/2020 22:03 2.1 Above high normal 0.4 -2.0 (mmol/L) Final Performing Location [address] [address]
--- OUTSIDE RECORDS SUMMARY | 2023-05-10 22:28 | External Medical Summary ---
Author Name Unknown Address Unknown Organization R:IT USE ONLY!!! Laboratory Report Ordering Provider Test Date Status ART CERVANTES 05/05/2020 12:16:00 Final Observation Date Value Abnormality Reference (Units ) Status Glucose Point of Care 05/05/2020 12:41 184 Above high normal 70-120 (mg/dL) Final Performing Location IT USE ONLY!!!
--- OUTSIDE RECORDS SUMMARY | 2023-05-10 22:28 | External Medical Summary ---
Author Name Unknown Address [facility] N [facility] [place] [address] Phone Organization K01:[address] [place] [address] Laboratory Report Ordering Provider Test Date Status GEOFF SCHRADER 05/05/2020 06:25:00 Final Observation Date Value Abnormality Reference (Units ) Status Lactic Acid 05/05/2020 07:25 1.4 0.4-2.0 (mm ol/L) Final Performing Location [address] [address]
--- OUTSIDE RECORDS SUMMARY | 2023-05-10 22:28 | External Medical Summary ---
Author Name Unknown Address [facility] N [facility] [place] [address] Phone Organization K01:[place] [address] [address] [facility] [place] [address] Laboratory Report Ordering Provider Test Date Status JACOB LERNER 05/05/2020 06:25:00 Final Observation Date Value Abnormality Reference (Units ) Status Albumin 05/05/2020 07:26 3.4 Below low normal 3.8-5.0 (g/dL) Final AST (Aspartate aminotransferase) 05/05/2020 07:26 40 Above high normal 10-35 (U/L) Final Alk Phos 05/05/2020 07:26 155 Above high normal 0-153 (U/L) Final ALT (Alanine aminotransferase) 05/05/2020 07:26 29 10-35 (U/L) Final Bilirubin, Total 05/05/2020 07:26 0.6 0-1.2 (mg/dL) Final Bilirubin, Direct 05/05/2020 07:26 0.3 0-0.3 (mg/dL) Final Protein 05/05/2020 07:26 6.4 6.0-8.3 (g/dL) Final Performing Location [address] [address]
--- OUTSIDE RECORDS SUMMARY | 2023-05-10 22:28 | External Medical Summary | Summary of Care ---
Author Name Unknown Organization [facility] Address [place] [address] Care Team Providers Care Associate Consulting Engineer Name Role Phone JohnbrianRajwinder thacker Primary Care Provider Reason for Visit * Reason Comments Follow Up cirrhosis of the adry er, discuss colonoscopy - didnt complete it on 03/17/2020 Encounter Details Date Type Department Care Team Description 05/04/2020 Office Visit Gastroenterology, [facility] 132 [facility] [place] [address] Inocente Gonzalez CRNP 132 [facility] [place] [address] Other iron deficiency anemia*; Alcoholic cirrhosis of liver without ascites (HCC) Allergies Active Allergy Reactions Severity Noted Date Comments Adhesive Tape Itching 04/29/2020 Penicillins Rash 02/12/2008 documented as of this encounter (statuses as of 05/04/2020) Medications Medication Sig Dispensed Refills Start Date [...] Dosing Unit 5 0 Active nystatin (NYSTOP) 493365 UNIT/GM powder Apply topically to affected area 3 times a day. 60 g 1 0 Active BD PEN NEEDLE MINI U/F 31G X 5 MMIndications:Typ e 2 diabetes mellitus with hemoglobin A1c goal of less than 7.0% ([facility] [place]) use with basaglar at bedtime 100 [...] in pm, 180 Cap 5 0 Active nadolol (CORGARD) 20 MG Tablet Take 2 Tabs by mouth daily. 180 Tab 1 0 Active ferrous sulfate (FEOSOL) 325 (65 [...] AT BEDTIME 90 Tab 1 0 Active MetFORMIN (GLUCOPHAGE) 1000 MG TabletIndications :Type 2 diabetes mellitus with hemoglobin A1c goal of less than 7.0% (HCC) TAKE 1 TABLET BY MOUTH TWICE DAILY 180 Tab 1 0 Active furosemide (LASIX) 20 [...] at bedtime. 30 Tab 0 0 Active fluconazole (DIFLUCAN) 200 MG Tablet Take 2 Tabs by mouth daily. 10 Tab 0 0 Active Additional Information Patient not taking. Reported [...] breakfast. 90 Cap 3 0 Active PEG 0809-QXb-TvCwf-Na Cl-NaSulf (GOLYTELY) 227.1 g PACK Drink 2 liters two days before colonoscopy and 2 liters the day before colonoscopy 1 Each 0 0 Active linaCLOtide (LINZESS) 145 MCG Capsule Take 1 Cap by mouth daily before breakfast. 90 Cap 3 0 05/04/20 20 Discontinued Hospital, Clinic, or Other Facility Administered Medication Ordered Dose Route Frequency Start Date End Date Status GOLYTELY/GAVILYTE-G 4 liter oral solutionIndications:O ther iron deficiency anemia,Alcoholic cirrhosis of liver without ascites (HCC) 4000 mL PO ONCE 05/04/2020 05/04/2020 Dis continued documented as of this encounter (statuses as of 05/04/2020) Active Problems Problem Noted Date Complicated UTI (urinary tract infection ) 04/23/2020 Pain of upper abdomen 04/23/2020 Cellulitis of right toe 04/18/2020 Cellulitis of right lower extremity 01/2020 Iron deficiency anemia due to chronic bl ood loss 12/03/2019 Splenomegaly 12/03/2019 Thrombocytopenia 05/02/2019 Gastroesophageal reflux disease 04/08/20 19 History of kidney stones 04/08/2019 History of Achilles tendon repair 2018 History of delivery 04/08/2019 History of MRSA infection 04/08/2019 History of migraine 04/08/2019 Anemia 04/08/2019 Fibromyalgia 04/08/2019 Achilles tendinitis, right leg 9 DNR (do not resuscitate) 04/08/2019 Ambulatory dysfunction 04/04/2019 Fall 04/04/2019 Sprain of right ankle 04/04/2019 DM type 2 with diabetic peripheral neuro heather 04/04/2019 Insomnia 04/04/2019 Recurrent major depressive disorder, in partial remission 04/04/2019 Impaired mobility and ADLs 04/04/2019 Generalized weakness 04/04/2019 Pancytopenia 02/21/2019 Wheelchair dependent 12/21/2018 History of recent fall 12/21/2018 THAD on CPAP 12/26/2017 Cirrhosis of liver 11/20/2017 History of Clostridium difficile colitis 08/29/2017 Chronic pain syndrome 01/17/2017 MEDICATION USE AGREEMENT [...] of lumbar region without neurogenic claudication 12/27/2010 Edema 01/09/2009 Venous insufficiency 01/09/2009 DDD (degenerative disc disease), lumbar Dyslipidemia, goal LDL below 70 documented as of this encounter (statuses as of 05/04/2020) Resolved Problems Problem Noted Date Resolved Date Chronic hypoxemic respiratory failure 04/08/2019 04/18/2019 Oxygen dependent 04/08/2019 04/18/2019 alf resident 04/08/2019 05/02/2019 Preop examination 02/21/2019 04/04/2019 Bladder tumor 10/11/2017 02/13/2018 Chronic indwelling Cline catheter 10/11/2017 02/13/2018 Recurrent UTI 10/11/2017 02/13/2018 Preoperative cardiovascular examination 10/11/19 18 02/13/2018 Debility 07/19/2017 02/13/2018 Body mass index (BMI) [...] pain 01/24/2012 01/17/2017 Genetic Sleep Disorder Research Other*[id number] 05/13/2011 04/07/2016 Obstructive sleep apnea 01/18/2011 12/27/19 [...] lymphedema 01/09/2009 06/07/2016 STASIS DERMATITIS 01/09/2009 05/07/2012 Sleep apnea 02/08/2008 03/28/2012 Overview: Compliance 12/21 [...] as of this encounter (statuses as of 05/04/2020) Immunizations Name Administration Dates Next Due HEP [...] Reading Time Taken Comments Blood Pressure 118/78 05/04/2020 2:19 PM EDT Pulse 78 05/04/2020 2:19 PM EDT Temperature 36.8 C (98.3 F) 05/04/2020 2:19 PM ED T Respiratory Rate - - Oxygen Saturation 91% 05/04/2020 2:19 PM EDT Inhaled Oxygen Concentration - - Weight 114.8 kg (253 lb) 05/04/2020 2:19 PM EDT per pt Height - - Body Mass Index 51.1 04/22/2020 3:35 PM EDT documented in this encounter Functional [...] No 04/23/2020 documented as of this encounter Patient Instructions * Patient Instructions* Inocente Gonzalez CRNP - 05/04/2020 2:56 PM EDT To prep for colonoscopy, continue the Linzess. 2 days before the colonoscopy, take Golyteley, 2 liters. Drink this slowly through the day. Be on clear liquids this day. Also, on this day, take 4 dulcolax pills (these are available over the counter). 1 day before the colonoscopy, take Golytely, 2 liters (again). Drink this slowly through the day. Goal is to have clear bowel movements. If still any solid pieces of BM or if brown thick bowel movement on the morning of the colonoscopy, then we should not do the procedure - so call us if this happens. documented in this encounter Progress Notes * Inocente Gonzalez CRNP - 05/04/2020 2:35 PM EDT Recall that Ms. Shaina Bustos is a 64 yr old female pt of Dr. Castaneda with a hx of NG cirrhosis, DM-2, hypothyroidism, Sleep apnea on CPAP who presents today for recheck. She was most recently seen inJuly requesting a colonoscopy. She was seen with Dr. Janis Hatch who agreed to attempt colonoscopy with a long bowel prep. This is scheduled for May. She was started on Linzess for constipation and presents for recheck. In the interim, she was admitted to [facility] for a complicated UTI. Current symptoms: Constipation has improved on the Linzess 145mcg. Now passing a formed BM 1-2 times/day for 3-4 days, but then no BM for the next 3-4 days. No recent blood in BMs. Stopped the iron supplementation. Has right hip pain but no abdominal pain. Colonoscopy attempt on 03/17/[address] Fernando [...] a colonoscopy in my opinion. EGD 11/27/19: Non-bleeding grade I esophageal varices. - Portal hypertensive gastropathy. - Gastritis. - Normal examined duodenum. - No specimens collected. Colonoscopy 04/21/2009: The colon is normal. Cirrhosis complications: Grade I EV: on Nadolol 20mg BID; protonix 20mg BID Regarding ascites - no recored of this but is on lasix 20mg prn. Screenings: CT with IV contrast 04/29/20: cirrhosis with evidence of portal HTN, w/o mention of focal lesion. EXAM: BP 118/78 | Pulse 78 | Temp 98.3 | Wt 253 lbs (114.760kg) | BMI 51.1 kg/m | BSA 2.19 m | SaO2 91% GENERAL: 64 year old obese female well developed and well nourished who is confined to a wheelchair, her right foot is dressed with a clean/dry dressing. No acute distress but appears uncomfortable and c/o right hip pain. SKIN: no rashes, ulcers, or spider angiomata HEENT: normocephalic, sclera clear, pharynx normal NECK: supple, no lymphadenopathy, no masses or thyroid enlargement LUNGS: clear to auscultation anterior and posterior (though unable to hear the lower lung tuttle aspt unable to lean forward very far and unable to transfer to an exam table. HEART: regular rate & rhythm, no murmurs and no gallops ABDOMEN: normo-active bowel sounds, soft, non-tender, non-distended no masses, no hepatosplenomegaly, no rebound or guarding, no bruits NEURO: no lateralizing findings, Sensory/Motor grossly normal IMPRESSION: 64 year old female with 1. Well compensated cirrhosis with ascites. 2. Chronic constipation RECOMMENDATIONS: 1. Increase Linzess to 290mcg one tab daily. 2. Colonoscopy for anemia is arranged per pt request in May. Pt will do the prep x 2 starting2 days early. See pt instructions. Pt to contact her PCP for insulin instructions during the prep. I told the pt that she can drink sugary clear liquids during the prep but she will likley need to take her BM more often and give insulin if needed. 3. Recheck in GI after colonoscopy can cancel 05/28/20 office visit and reschedule for after colonoscopy. Thank you for the opportunity to be involved in the care of this patient. ZAK Wynne documented in this encounter Nursing Notes * Sabine Valencia LPN - 05/04/2020 2:24 PM EDT Patient identified by name and date of . Chief Complaint Patient presents with Follow Up cirrhosis of the liver, discuss colonoscopy - didnt complete it on 03/17/2020 Pt not able to identify what medications she is on, she gets them in "pill packs" and unsure what she is taking. documented in this encounter Plan of Treatment Upcoming Encounters Date Type Specialty Care Team Description 05/28/2020 Office Visit [facility]ology [facility] CRNP [facility] [place] [address] [phone] 06/03/2020 Hospital Encounter Surgery Janis Hatch, DO [address] [place] [address] [phone] 06/03/2020 Surgery Surgery Janis Hatch, DO [address] [place] [address] [phone] COLONOSCOPY FLEXIBLE PROXIMAL DIAGNOSTIC 06/10/2020 Office Visit Gynecology Obstetrics Alcon Ortiz, DO [address] [place], [place] [phone] 06/11/2020 Telemedicine Wound Care Prakash Honeycutt PA-C [address] [place], [place] [phone] 06/30/2020 Office Visit Hematology Oncology Tono Sanchez MD 200 [facility] [address] [phone] 07/29/2020 Office Visit Family Medicine Rajwinder Carter, DO [address] [place], [place] [id number] 07/31/2020 Nutrition Services Gastroenterology Melissa Omalley, [place]ANTHA [address] [place] [address] [facility] [place] [address] 09/03/2020 Imaging Radiology Health Maintenance [...] of this encounter Visit Diagnoses Diagnosis Other iron deficiency anemia- Primary Alcoholic cirrhosis of liver without ascites (HCC) Alcoholic cirrhosis of liver documented in this encounter Advance Directives Documents on File Type Date Recorded Patient Retail Management Keyholder 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 Advanced Directive 04/15/2020 12:36 PM Advanced Directive 04/23/2020 8:54 AM Advanced Directive Latest Code Status on File Code Status Date Activated Date Inactivated Comments Full Code 04/23/2020 12:30 AM 04/25/2020 7:21 [...]
--- OUTSIDE RECORDS SUMMARY | 2023-05-10 22:28 | External Medical Summary ---
Author Name Unknown Address [address] [facility] [address] Phone Organization K01:[facility] 100 [address] [facility] [place] [address] Laboratory Report Ordering Provider Test Date Status SHERWIN TREVINO 05/04/2020 21:11:00 Final Observation Date Value Abnormality Reference (Units ) Status WBC, Total 05/04/2020 21:51 3.05 Below low normal 4.00-10.80 (K/uL) Final RBC 05/04/2020 21:51 3.15 Below low normal 3.85-5.15 (M/uL) Final Hemoglobin 05/04/2020 21:51 10.2 Below low normal 12.0-15.3 (g/dL) Final HCT 05/04/2020 21:51 32.9 Below low normal 36.0-45.2 (%) Final MCV 05/04/2020 21:51 104.4 Above high normal 81.5-97.5 (fL) Final MCH 05/04/2020 21:51 32.4 27.0-34.0 (pg) Final MCHC 05/04/2020 21:51 31.0 Below low normal 32.0-36.0 (g/dL) Final RDW 05/04/2020 21:51 14.6 11.5-15.5 (%) Final Platelets 05/04/2020 21:51 80 Below low normal 140-400 (K/uL) Final MPV 05/04/2020 21:51 12.4 Above high normal 6.6-11.1 (fL) Final Nucleated erythrocytes/100 leukocytes [Ratio] in Blood by Automated count 05/04/2020 21:51 0 0 (/100 WBCs) Final Segs 05/04/2020 21:55 54.7 40-75 (%) Final Lymphs % 05/04/2020 21:55 29.2 18-42 (%) Final Monos 05/04/2020 21:55 6.9 1-11 (%) Final Eosinophils 05/04/2020 21:55 7.5 Above high normal 0-6 (%) Final Basos 05/04/2020 21:55 1.0 0-2 (%) Final Immature Granulocyte, Percent 05/04/2020 21:55 0.7 0-2 (%) Final Neutrophils [#/volume] in Blood 05/04/2020 21:55 1.67 Below low normal 1.8-7.7 (K/uL) Final Lymphs, absolute 05/04/2020 21:55 0.89 Below low normal 1.0-4.8 (K/uL) Final Monos, Abs 05/04/2020 21:55 0.21 0.0-1.1 (K/uL) Final Eos, Abs 05/04/2020 21:55 0.23 0.0-0.7 (K/uL) Final Basos, Abs 05/04/2020 21:55 0.03 0.0-0.2 (K/uL) Final Immature Granulocytes, Number 05/04/2020 21:55 0.02 0.0-0.2 (K/uL) Final Polychromasia [Presence] in Blood by Light microscopy 05/04/2020 21:55 SLIGHT Final Macrocytes [Presence] in Blood by Light microscopy 05/04/2020 21:55 PRESENT Final Dacrocytes [Presence] in Blood by Light microscopy 05/04/2020 21:55 FEW Final Performing Location [facility] [address] [facility]. [place], [place] [address]
--- OUTSIDE RECORDS SUMMARY | 2023-05-10 22:28 | External Medical Summary ---
Author Name Unknown Address [address] [place] [address] Phone Organization K01:[facility] [address] [place] [id number] Laboratory Report Ordering Provider Test Date Status SHERWIN TREVINO 05/05/2020 01:20:00 Final Observation Date Value Abnormality Reference (Units ) Status Color of Urine by Auto 05/05/2020 02:45 YELLOW YEL Final Clarity, Urine 05/05/2020 02:45 CLEAR CLEAR Final Glucose [Mass/volume] in Urine by Automated test strip 05/05/2020 02:45 1000 Abnormal NEG (mg/dL) Final Bilirubin [Presence] in Urine by Automated test strip 05/05/2020 02:45 NEGATIVE NEG Final Ketones [Mass/volume] in Urine by Automated test strip 05/05/2020 02:45 NEGATIVE NEG (mg/dL) Final Specific gravity, Urine 05/05/2020 02:45 1.035 Above high normal 1.003-1.030 Final Hemoglobin [Presence] in Urine by Automated test strip 05/05/2020 02:45 NEGATIVE NEG Final pH, Urine 05/05/2020 02:45 6.0 5.0-7.5 (units) Final Protein [Mass/volume] in Urine by Automated test strip 05/05/2020 02:45 30 Abnormal NEG (mg/dL) Final Urobilinogen [Mass/volume] in Urine by Automated test strip 05/05/2020 02:45 2 Abnormal NORM (mg/dL) Final Nitrite [Presence] in Urine by Automated test strip 05/05/2020 02:45 NEGATIVE NEG Final Leukocyte esterase [Presence] in Urine by Automated test strip 05/05/2020 02:45 TRACE Abnormal NEG Final Bacteria [#/area] in Urine by Automated count 05/05/2020 02:45 26-50 Abnormal DUC360 (/HPF) Final Leukocytes [#/area] in Urine sediment by Automated count 05/05/2020 02:45 20-29 Abnormal U02 (/HPF) Final Erythrocytes [#/area] in Urine sediment by Automated count 05/05/2020 02:45 3-5 Abnormal U02 (/HPF) Final Yeast.budding [Presence] in Urine sediment 05/05/2020 02:45 PRESENT Abnormal NONE (/HPF) Final Hyaline casts [#/area] in Urine sediment by Automated count 05/05/2020 02:45 1-4 UM1 (/LPF) Final Performing Location [facility] [address] [facility] [address]
--- OUTSIDE RECORDS SUMMARY | 2023-05-10 22:28 | External Medical Summary ---
Author Name Unknown Address [address] [place] [address] [place] [address] Phone Organization K01:[place] [id number] Laboratory Report Ordering Provider Test Date Status SHERWIN TREVINO 05/04/2020 21:11:00 Final Observation Date Value Abnormality Reference (Units ) Status Albumin 05/04/2020 21:56 3.5 Below low normal 3.8-5.0 (g/dL) Final AST (Aspartate aminotransferase) 05/04/2020 21:56 54 Above high normal 10-35 (U/L) Final Performing Location [address] [address]
--- OUTSIDE RECORDS SUMMARY | 2023-05-10 22:29 | External Medical Summary ---
Author Name Unknown Address [facility] N [facility] Phone Organization K01:[place] [id number] Laboratory Report Ordering Provider Test Date Status SHERWIN TREVINO 04/29/2020 19:25:00 Final Observation Date Value Abnormality Reference (Units ) Status Troponin T 04/29/2020 19:52 7 0-14 (ng/L) Final Performing Location [address] [address]
--- OUTSIDE RECORDS SUMMARY | 2023-05-10 22:29 | External Medical Summary | Summary of Care ---
Author Name Unknown Organization [facility] [place] [address] Care Team Providers Care Director [employer] Name Role Phone Rajwinder Carter Primary Care Provider [phone] Reason for Visit * Reason Comments Weight Management Medical Management Encounter Details Date Type Department Care Team Description 04/29/2020 Nutrition Services Nutrition & Weight Management, [facility] [address] [facility] [place] [address] Melissa Omalley RDN [address] [place] [address] [place] [id number] Obesity, morbid (more than 100 lbs over ideal weight or BMI > 40) ([facility])*; Type 2 diabetes mellitus with hemoglobin A1c goal of less than 7.0% (HCC); HTN, goal below 140/90; Cirrhosis of liver (HCC); Lymphedema; Dyslipidemia, goal LDL below 70; Acquired hypothyroidism Allergies Active Allergy Reactions Severity Noted Date Comments Penicillins Rash 02/12/2008 documented as of this encounter (statuses as of 04/29/2020) Medications Medication Sig Dispensed Refills Start Date [...] Dosing Unit 5 10/07/2019 Active nystatin (NYSTOP) 381333 UNIT/GM powder Apply topically to affected area 3 times a day. 60 g 1 10/16/2019 Active BD PEN NEEDLE MINI U/F 31G X 5 MMIndications:Type 2 diabetes mellitus with hemoglobin A1c goal of less than 7.0% ([facility]) use with basaglar at bedtime 100 [...] AT BEDTIME 90 Tab 1 12/30/2019 Active MetFORMIN (GLUCOPHAGE) 1000 MG TabletIndications: Type 2 diabetes mellitus with hemoglobin A1c goal of less than 7.0% (HCC) TAKE 1 TABLET BY MOUTH TWICE DAILY 180 Tab 1 01/06/2020 Active furosemide (LASIX) 20 MG TabletIndications: Localized [...] TWICE DAILY 60 Tab 5 03/27/2020 Active linaCLOtide (LINZESS) 145 MCG Capsule Take 1 Cap by mouth daily before breakfast. 90 Cap 3 03/30/2020 Active tamsulosin (FLOMAX) 0.4 MG Capsule TAKE 1 CAPSULE BY MOUTH ONCE DAILY 90 Cap 1 04/22/2020 Active cyclobenzaprine (FLEXERIL) 10 MG Tablet Take 1 Tab by mouth every night at bedtime. 30 Tab 0 04/22/2020 Active fluconazole (DIFLUCAN) 200 MG Tablet Take 2 Tabs by mouth daily. 10 Tab 0 04/26/2020 Active mupirocin calcium (BACTROBAN) 2 % ointment Apply topically to affected area 2 times a day. Apply to right toe affected area cover with dressing. 22 g 0 04/25/2020 Active documented as of this encounter (statuses as of 04/29/2020) Active Problems Problem Noted Date Complicated UTI [...] as of this encounter (statuses as of 04/29/2020) Resolved Problems Problem Noted Date Resolved Date Chronic hypoxemic respiratory failure 04/08/2019 04/18/2019 Oxygen dependent 04/08/2019 04/18/2019 care home resident 04/08/2019 05/02/2019 Preop examination 02/21/2019 04/04/2019 [...] pain 01/24/2012 01/17/2017 Genetic Sleep Disorder Research Other*[id number] 05/13/2011 04/07/2016 Obstructive sleep apnea 01/18/2011 12/27/19 [...] as of this encounter (statuses as of 04/29/2020) Immunizations Name Administration Dates Next Due HEP [...] have Coronavirus / COVID-19? No / Unsure 04/29/2020 12:48 PM EDT documented as of this encounter Last Filed Vital Signs Vital Sign Reading Time Taken Comments Blood Pressure 108/74 04/29/2020 12:49 PM EDT Pulse 72 04/29/2020 12:49 PM EDT Temperature 36.4 C (97.5 F) 04/29/2020 1 2:49 PM EDT Respiratory Rate - - Oxygen Saturation - - Inhaled Oxygen Concentration - - Weight 114.8 kg (253 lb) 04/29/2020 12: 49 PM EDT Patient reported Height - - Body Mass Index 51.1 [...] * Patient Instructions* Melissa Omalley RDN - 04/29/2020 1:22 PM EDT PATIENT GOALS: 1) Patient to continue to follow a portion controlled diet. Goal not to skip meals. Patient to continue to use Ensure High Protein once daily for adequate protein in the diet. 2) Patient to focus on a well balanced at meals such as a protein, fruit vegetable and limited starch. Patient to focus on choosing more whole grain breads, whole grain pastas etc in limited amounts. 3) Patient to drink more water with goal of 48-64 ounces day. documented in this encounter Progress Notes * Melissa Omalley RDN - 04/29/2020 1:15 PM EDT WEIGHT MANAGEMENT FOLLOW UP [facility] Patient was identified at visit by name and date. DATE: 04/29/2020 Office Visit NUTRITION ASSESSMENT Diagnosis Code for [...] foot and was in the hospital in [place]2 [place]2 [place]. CURRENT WT: 253 lbs Ht: 4'11" BMI: 51.10 LAST OFFICE VISIT: 283 lbs 01/29/2020 WEIGHT CHANGES: Weight decreased 30 lbs since last visit. Wt Readings from Last 20 Encounters: 04/29/20 114.8 kg (253 lb) 04/25/20 114.6 kg (252 lb 10.4 oz) 04/15/20 114.9 kg (253 lb 3.2 oz) 03/30/20 113.4 kg (250 lb) 01/29/20 128.4 kg (283 lb) 12/23/19 128.4 kg (283 lb) 12/03/19 127.5 kg (281 lb) 06/06/19 116.1 kg (256 lb) 05/22/19 120.7 kg (266 lb) 02/06/19 118 kg (260 lb 1.6 oz) 12/24/18 118.1 kg (260 lb 6.4 oz) 12/24/18 118.1 kg (260 lb 6.4 oz) 12/21/18 115.2 kg (254 lb) 09/24/18 115.2 kg (254 lb) 09/24/18 115.2 kg (254 lb) 07/16/18 111.4 kg (245 lb 9.6 oz) 07/16/18 111.4 kg (245 lb 9.6 oz) 07/11/18 110.8 kg (244 lb 4.8 oz) 05/16/18 118.4 kg (261 lb) 04/23/18 117.9 kg (259 lb 14.4 oz) Diet History:Obtained and reviewed from patient. Describes typical diet history/24 hr recall Breakfast: 2 pieces of toast Snacks:Egg [place] Dinner: Cooked meal with a starch and a vegetable Snacks: Ensure High Protein Drinks: 48-64 ounces MNT: Calorie Controlled Diet LABS: Pertinent lab studies have been reviewed. NUTRITION DIAGNOSIS Food and nutrition related knowledge deficit in relation to calorie intake exceeding calorie expenditure as evidenced by diagnosis of Obesity. NUTRITION INTERVENTION Motivational Interviewing used with patient at time of this visit. Adjusted nutrition /lifestyle goals with patient to aid with slow consistent weight loss. Patient stated understanding and agreed to plan. PATIENT GOALS: 1) Patient to continue to follow a portion controlled diet. Goal not to skip meals. Patient to continue to use Ensure High Protein once daily for adequate protein in the diet. 2) Patient to focus on a well balanced at meals such as a protein, fruit vegetable and limited starch. Patient to focus on choosing more whole grain breads, whole grain pastas etc in limited amounts. 3) Patient to drink more water with goal of 48-64 ounces day. NUTRITION MONITORING/EVALUATION Monitor weight loss progress for adjustments in patient's nutrition/lifestyle goals accordingly. PLAN: Follow up in 3 months with dietitian. 20 Minute Return Face to Face Visit Melissa Omalley RDN, LDN documented in this encounter Nursing Notes * Alirio Corcoran LPN - 04/29/2020 12:48 PM EDT Patient identified by full name and date of Chief Complaint Patient presents with Weight Management Medical Management documented in this encounter Plan of Treatment Upcoming Encounters Date Type Specialty Care Team Description 04/30/2020 Office Visit Wound Care Jefferson Rios MD [address] [facility] [place] [address] [phone] 05/04/2020 Office Visit Gastroenterology Inocente Gonzalez CRNP [address] [place] [address] [phone] 05/06/2020 Office Visit Gynecology Obstetrics Aman Small CNM [address] [facility] [place] [address] [phone] 05/28/2020 Office Visit Gastroenterology Lyssa Stout CRNP [address] [place] [address] [phone] 06/03/2020 Hospital Encounter Surgery Janis Hatch, DO [address] [facility] [place], [place] [address] [phone] 06/03/2020 Surgery Surgery Janis Hatch, DO [address] [facility] [place], [place] [address] [phone] COLONOSCOPY FLEXIBLE PROXIMAL DIAGNOSTIC 06/10/2020 Office Visit Gynecology Obstetrics Alcon Ortiz, DO [address] [place] [address] 06/30/2020 Office Visit Hematology Oncology Tono Sanchez MD [address] [facility] [place] [address] [phone] 07/29/2020 Office Visit Family Medicine Rajwinder Carter, DO [address] [place] [address] 07/31/2020 Nutrition Services Gastroenterology Melissa Omalley, [place] [address] [place], [place] [id number] 09/03/2020 Imaging Radiology Scheduled Orders Name Type Priority Associated Diagnoses Orde r Schedule MED NUTRITION TX; SUBSEQ 15 MIN (PROVIDER) Procedures Routine Obesity, morbid (more than 100 lbs over ideal weight or BMI > 40) (HCC) Type 2 diabetes mellitus with hemoglobin A1c goal of less than 7.0% (HCC) HTN, goal below 140/90 Cirrhosis of liver (HCC) Lymphedema Dyslipidemia, goal LDL below 70 Acquired hypothyroidism Ordered: 04/29/2020 Health Maintenance Due Date Last Done Comments [...] Documents on File Type Date Recorded 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
--- OUTSIDE RECORDS SUMMARY | 2023-05-10 22:29 | External Medical Summary ---
Author Name Unknown Address [facility] [address] [place] [id number] Phone Organization K01:[place] [id number] Laboratory Report Ordering Provider Test Date Status SHERWIN TREVINO 04/29/2020 19:25:00 Final Observation Date Value Abnormality Reference (Units ) Status Lipase 04/29/2020 19:52 16 13-60 (U/L) F inal Performing Location [address] [address]
--- OUTSIDE RECORDS SUMMARY | 2023-05-10 22:29 | External Medical Summary ---
Author Name Unknown Address Unknown Organization R:IT USE ONLY!!! Laboratory Report Ordering Provider Test Date Status JACOB RAMOS 04/24/2020 21:14:00 Final Observation Date Value Abnormality Reference (Units ) Status Glucose Point of Care 04/24/2020 21:44 197 Above high normal 70-120 (mg/dL) Final Performing Location IT USE ONLY!!!
--- OUTSIDE RECORDS SUMMARY | 2023-05-10 22:29 | External Medical Summary ---
Author Name Unknown Address [facility] [address] [place] [id number] Phone Organization K01:[place] [address] [place] [id number] Laboratory Report Ordering Provider Test Date Status SHERWIN TREVINO 04/29/2020 19:25:00 Final Observation Date Value Abnormality Reference (Units ) Status BUN 04/29/2020 19:52 12 6-20 (mg/dL) Final Creatinine 04/29/2020 19:52 0.6 0.5-1.0 (mg/ dL) Final E Glom Filt Rate 04/29/2020 19:52 >60.0 >60 Final Performing Location [address] [address]
--- OUTSIDE RECORDS SUMMARY | 2023-05-10 22:29 | External Medical Summary | Summary of Care ---
Author Name Unknown Organization [facility] Address [place] [address] Care Team Providers Care Spike Machine Feeder Name Role Phone Rajwinder Carter DO Primary Care Provider [phone] Reason for Visit * Reason Comments Medication Question Encounter Details Date Type Department Care Team Description 04/27/2020 Telephone [facility] [address] [place] [address] Rajwinder Carter DO [address] [place] [address] Medication Question Allergies Active Allergy Reactions Severity Noted Date Comments Penicillins Rash 02/12/2008 documented as of this encounter (statuses as of 04/27/2020) Medications Medication Sig Dispensed Refills Start Date [...] Dosing Unit 5 10/07/2019 Active nystatin (NYSTOP) 058329 UNIT/GM powder Apply topically to affected area [...] as of this encounter (statuses as of 04/27/2020) Active Problems Problem Noted Date Complicated UTI [...] as of this encounter (statuses as of 04/27/2020) Resolved Problems Problem Noted Date Resolved Date Chronic hypoxemic respiratory failure 04/08/2019 04/18/2019 Oxygen dependent 04/08/2019 04/18/2019 skilled nursing resident 04/08/2019 05/02/2019 Preop examination 02/21/2019 04/04/2019 [...] pain 01/24/2012 01/17/2017 Genetic Sleep Disorder Research Other*[id number] 05/13/2011 04/07/2016 Obstructive sleep apnea 01/18/2011 12/27/19 [...] as of this encounter (statuses as of 04/27/2020) Immunizations Name Administration Dates Next Due HEP [...] older)(Adacel) 05/26/2008 Varicella Zoster Vaccine (Adult) 12/09/2015 documented as of this encounter Social History [...] have Coronavirus / COVID-19? No / Unsure 04/22/2020 3:14 PM EDT documented as of this encounter [...] Telephone Encounter - Rajwinder Carter DO - 04/27/2020 4:50 PM EDT She can hold until her appt with me (which appears to be tomorrow). * Telephone Encounter - Josselin Gaspar LPN - 04/27/2020 3:46 PM EDT Per office visit 03/30/20 with ZAK Tracey (GI): RECOMMENDATIONS: 1. Stop the iron supplements (iron levels are now normal). Please advise. * Telephone Encounter - Rajwinder Carter DO - 04/27/2020 1:28 PM EDT 1. I do not know who told her to stop iron. Does she know? 2. Per discharge summary, it was advised that she continue. * Telephone Encounter - Brianne Triana RN - 04/27/2020 12:10 PM EDT Pt had not been seen by GI while an inpatient in [facility]. Has N[facility] follow up on 04/29 and GI on 05/04. Fwd to PCP. * Telephone Encounter - Shena Childress CPhT - 04/27/2020 9:51 AM EDT Pt calling. Per pt she had been advised to d/c the iron, however, during her recent admission she was given iron. Pt advised she is now confused as to how to proceed. would like to know whether she should continue taking the iron. Call back # [phone], if after 4 pm can call [phone]. Thank you. Shena Childress Distillery Supervisor [facility] 04/27/2020, 9:55 AM documented in this encounter Plan of Treatment Upcoming Encounters Date Type Specialty Care Team Description 04/28/2020 Office Visit Family Medicine Rajwinder Carter DO [address] [place] [address] [phone] 04/29/2020 Nutrition Services Gastroenterology Melissa Omalley, [place] [address] [place] [address] [place] [id number] 04/30/2020 Office Visit Wound Care Jefferson Rios MD [address] [place] [address] 05/04/2020 Office Visit Gastroenterology Inocente Gonzalez CRNP [address] [facility] [place] [id number] 05/06/2020 Office Visit Gynecology Obstetrics Aman Small, MANAV [address] [facility] [place] [id number] 05/28/2020 Office Visit Gastroenterology Lyssa Stout CRNP [address] [facility] [place] [id number] 06/03/2020 Hospital Encounter Surgery Janis Hatch, DO [address] [facility] [place] [address] [phone] 06/03/2020 Surgery [facility]atch, DO [facility] [place] [address] [phone] COLONOSCOPY FLEXIBLE PROXIMAL DIAGNOSTIC 06/30/2020 Office Visit Hematology Oncology Tono Sanchez MD [address] [place] [place] [address] [phone] 09/03/2020 Imaging Radiology Health Maintenance Due Date Last Done Comments Zoster Vaccines (2 of 3) 02/03/2016 12/09/2015 DIABETES-EYE EXAM 06/12/2019 06/12/2018, , 06/12/2018, Additional history exists PAP SMEAR-EVERY 3 YRS,AGES 21-65 10/10/2019 10/10/2016, 07/02/2014, 04/16/2013, Additional history exists DIABETES-URINE MICROALBUMIN EVERY 12 MONTHS 01/12/2020 01/11/2019, 08/24/2018, 07/19/2018, Additional history exists Influenza Vaccine (FLU shot) (#1) 2020 06/05/2019, 06/05/2019, 05/16/2018, Additional history exists DIABETES-HGBA1C EVERY 6 MONTHS 08/22/2020 02/21/2020, 11/26/2019, 11/11/2019, Additional history exists BREAST CANCER SCREENING DISCUSSION [...] on File Type Date Recorded 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
--- OUTSIDE RECORDS SUMMARY | 2023-05-10 22:29 | External Medical Summary ---
Author Name Unknown Address [facility] N [facility] [place] [address] Phone Organization K01:[place] [address] [address] [facility] [place] [address] Laboratory Report Ordering Provider Test Date Status JACOB RAMOS 04/25/2020 05:05:00 Final Observation Date Value Abnormality Reference (Units ) Status Vitamin B12 04/25/2020 08:07 [id number] (p g/mL) Final Performing Location [address] [place] [address]
--- OUTSIDE RECORDS SUMMARY | 2023-05-10 22:29 | External Medical Summary ---
Author Name Unknown Address [facility] [address] [place] [phone] Phone Organization K01:[place] [address] [address] [place] [id number] Laboratory Report Ordering Provider Test Date Status RENATO FLORESCRYSTALYASH 04/28/2020 16:37:00 Final Observation Date Value Abnormality Reference (Units ) Status WBC, Total 04/28/2020 23:07 2.68 Below low normal 4.00- 10.80 (K/uL) Final RBC 04/28/2020 23:07 2.94 Below low normal 3.85-5 .15 (M/uL) Final Hemoglobin 04/28/2020 23:07 9.7 Below low normal 12.0- 15.3 (g/dL) Final HCT 04/28/2020 23:07 31.4 Below low normal 36.0-4 5.2 (%) Final MCV 04/28/2020 23:07 106.8 Above high normal 81.5- 97.5 (fL) Final Performing Location [address] [address]
--- OUTSIDE RECORDS SUMMARY | 2023-05-10 22:29 | External Medical Summary ---
Author Name Unknown Address [address] [facility] [place] [address] Phone Organization K01:[facility] [address] [facility] [place] [address] Laboratory Report Ordering Provider Test Date Status JACOB RAMOS 04/25/2020 05:05:00 Final Observation Date Value Abnormality Reference (Units ) Status BUN 04/25/2020 05:57 9 6-20 (mg/dL) Final Creatinine 04/25/2020 05:57 0.6 0.5-1.0 (mg/ dL) Final E Glom Filt Rate 04/25/2020 05:57 >60.0 >60 Final Performing Location [facility] [address] [facility] [place] [address]
--- OUTSIDE RECORDS SUMMARY | 2023-05-10 22:29 | External Medical Summary ---
Author Name Unknown Address Unknown Organization R:IT USE ONLY!!! Laboratory Report Ordering Provider Test Date Status JACOB RAMOS 04/25/2020 07:40:00 Final Observation Date Value Abnormality Reference (Units ) Status Glucose Point of Care 04/25/2020 07:55 117 7 0-120 (mg/dL) Final Performing Location IT USE ONLY!!!
--- OUTSIDE RECORDS SUMMARY | 2023-05-10 22:29 | External Medical Summary ---
Author Name Unknown Address [facility] N [facility] [place] [address] Phone Organization K01:[place] [id number] Laboratory Report Ordering Provider Test Date Status SHERWIN TREVINO 04/29/2020 19:25:00 Final Observation Date Value Abnormality Reference (Units ) Status Lactic Acid 04/29/2020 19:52 1.5 0.4-2.0 (mm ol/L) Final Performing Location [address] [address]
--- OUTSIDE RECORDS SUMMARY | 2023-05-10 22:29 | External Medical Summary ---
Author Name Unknown Address [address] [place] [address] [place] [address] Phone Organization K01:[place] [id number] Laboratory Report Ordering Provider Test Date Status JACOB RAMOS 04/25/2020 05:05:00 Final Observation Date Value Abnormality Reference (Units ) Status Retic, % (auto) 04/25/2020 13:35 2.22 Above high normal 0.80-1.90 (%) Final Reticulocytes, Absolute 04/25/2020 13:35 64.5 31.3-100.1 (K/uL) Final Reticulocyte fraction, immature 04/25/2020 13:35 12.1 2.5-20.6 (%) Final Reticulocyte HGB 04/25/2020 13:35 29.1 Below low normal 29.7-37.4 (pg) Final Performing Location [address] [address]
--- OUTSIDE RECORDS SUMMARY | 2023-05-10 22:29 | External Medical Summary ---
Author Name Unknown Address [facility] N [facility] [place] [address] Phone Organization K01:[place] [id number] Laboratory Report Ordering Provider Test Date Status JACOB RAOMS 04/25/2020 05:05:00 Final Observation Date Value Abnormality Reference (Units ) Status WBC, Total 04/25/2020 06:11 2.38 Below low normal 4.00- 10.80 (K/uL) Final RBC 04/25/2020 06:11 2.99 Below low normal 3.85-5 .15 (M/uL) Final Hemoglobin 04/25/2020 06:11 10.1 Below low normal 12.0- 15.3 (g/dL) Final Performing Location [address] [address]
--- OUTSIDE RECORDS SUMMARY | 2023-05-10 22:29 | External Medical Summary ---
Author Name Unknown Address [facility] N [facility] Phone Organization K01:[place] [address] [address] [place] [id number] Laboratory Report Ordering Provider Test Date Status JACOB RAMOS 04/25/2020 05:05:00 Final Observation Date Value Abnormality Reference (Units ) Status Folic Acid 04/25/2020 08:07 >20.0 >4.5 (ng/mL) Final Performing Location [address] [address]
--- OUTSIDE RECORDS SUMMARY | 2023-05-10 22:29 | External Medical Summary ---
Author Name Unknown Address [facility] [address] [place] [phone] Phone Organization K01:[facility] [address] [place] [id number] Laboratory Report Ordering Provider Test Date Status JANE FLORES 04/28/2020 16:37:00 Final Observation Date Value Abnormality Reference (Units ) Status HbA1C 04/28/2020 23:29 9.9 Above high normal 4.0-5 .6 (%) Final Performing Location [facility] [address] [facility] [address]
--- OUTSIDE RECORDS SUMMARY | 2023-05-10 22:29 | External Medical Summary | Summary of Care ---
Author Name Unknown Organization [place] [address] Care Team Providers Care Elementary Educator Name Role Phone JohnbrianRajwinder thacker Primary Care Provider [phone] Reason for Visit * Reason Comments NEW PATIENT * Evaluate & Treat - Unlimited Visits (Within 10 days (routine)) Status Reason Specialty Diagnoses / Procedures Referred By Contact Referred To Contact Pending Review Specialty Services Required Wound Care Diagnoses Cellulitis of right toe Gloria Jeffers DO [address] [place] [address] Encounter Details Date Type Department Care Team Description 04/30/2020 Office Visit Wound Care, [place] [address] [place] [address] Prakash Honeycutt PA-C [address] [place] [address] [phone] Open wound of right great toe, subsequent encounter*; DM type 2 with diabetic peripheral neuropathy ([facility]); Obesity, morbid (more than 100 lbs over ideal weight or BMI > 40) ([facility]) Allergies Active Allergy Reactions Severity Noted Date Comments Adhesive Tape Itching 04/29/2020 Penicillins Rash 02/12/2008 documented as of this encounter (statuses as of 04/30/2020) Medications Medication Sig Dispensed Refills Start Date [...] Dosing Unit 5 10/07/2019 Active nystatin (NYSTOP) 808747 UNIT/GM powder Apply topically to affected area 3 times a day. 60 g 1 10/16/2019 Active BD PEN NEEDLE MINI U/F 31G X 5 MMIndications:Type 2 diabetes mellitus with hemoglobin A1c goal of less than 7.0% ([facility]) use with basaglar at bedtime [...] with dressing 50 g 3 04/30/2020 Active Hospital, Clinic, or Other Facility Administered Medication Ordered Dose Route Frequency Start Date End Date Status silver sulfadiazine (SILVADENE) 1 % creamIndications:Open wound of right great toe, subsequent encounter TOP ONCE 04/30/2020 05/01/2020 Acti ve documented as of this encounter (statuses as of 04/30/2020) Active Problems Problem Noted Date Complicated UTI [...] as of this encounter (statuses as of 04/30/2020) Resolved Problems Problem Noted Date Resolved Date Chronic hypoxemic respiratory failure 04/08/2019 04/18/2019 Oxygen dependent 04/08/2019 04/18/2019 residential resident 04/08/2019 05/02/2019 Preop examination 02/21/2019 04/04/2019 [...] pain 01/24/2012 01/17/2017 Genetic Sleep Disorder Research Other*[id number] 05/13/2011 04/07/2016 Obstructive sleep apnea 01/18/2011 12/27/19 [...] as of this encounter (statuses as of 04/30/2020) Immunizations Name Administration Dates Next Due HEP [...] (15 years old or older) Yes 04/23/20 Cognitive Status Response Date of Assessm ent [...] great toe previously treated by podiatry at [facility], the R great toenail removed by her podiatristand she starteddeveloping purulent drainage from around the toenail bed and pad of the toe along with some blood. She was admitted to [facility] 04/14/20- 04/25/20 for R [...] and Time: 04/10/2020 3:31 PM Collected By: UNSPECIFIED,GRADUATE STUDENT INSTRUCTOR Received: 04/10/2020 3:32 PM CULTURE, WOUND, SUPERFICIAL, AEROBIC Order: [id number] Status: Final result Visible to patient: No [...] Encounters Date Type Specialty Care Team Description 05/04/2020 Office Visit Gastroenterology Inocente Gonzalez CRNP [address] [facility] [place] [address] 05/06/2020 Office Visit Gynecology Obstetrics Aman Small, [facility] [address] [place] [address] [phone] 05/28/2020 Office Visit [facility]enterology [facility]sa [facility]out [facility] [address] [facility] [place] [address] [phone] 06/03/2020 Hospital Encounter Surgery Janis Hatch, DO [address] [place] [address] [phone] 06/03/2020 Surgery Surgery [facility] Hatch, DO [address] [facility] [place] [address] [phone] COLONOSCOPY FLEXIBLE PROXIMAL DIAGNOSTIC 06/10/2020 Office Visit Gynecology Obstetrics Alcon Ortiz, DO [address] [place] [address] 06/11/2020 Telemedicine Wound Care Prakash Honeycutt PA-C [address], [place] [id number] 06/30/2020 Office Visit Hematology Oncology Tono Sanchez MD [address] [place] [address], [place] [id number] 07/29/2020 Office Visit Family Medicine Rajwinder Carter [facility] [address] [facility] [address] 07/31/2020 Nutrition Services Gastroenterology Melissa Omalley, RDN [address] [place] [address] [phone] 09/03/2020 Imaging Radiology Health Maintenance Due Date [...] Documents on File Type Date Recorded Patient Mortgage Processing Clerk Expl anation Advanced Directive service a [...]
--- OUTSIDE RECORDS SUMMARY | 2023-05-10 22:29 | External Medical Summary ---
Author Name Unknown Address [address] [place] [id number] Phone Organization K01:[facility] [address] [id number] Laboratory Report Ordering Provider Test Date Status JANE FLORES 04/28/2020 16:37:00 Final Observation Date Value Abnormality Reference (Units ) Status Ferritin 04/28/2020 23:37 115.2 13-150 (ng/mL ) Final Performing Location [place] [address] [address] [facility] [address]
--- OUTSIDE RECORDS SUMMARY | 2023-05-10 22:29 | External Medical Summary | Summary of Care ---
Author Name Unknown Organization [facility] [place] [address] Care Team Providers Care Yard Specialist Name Role Phone Rajwinder Carter DO Primary Care Provider + [phone] Reason for Visit * Reason Comments Hospital Follow-Up Immunizations Shingrix Encounter Details Date Type Department Care Team Description 04/28/2020 Office Visit [facility] [address] [place] [address] Rajwinder Carter DO [address] [place] [address] [phone] Hospital discharge follow-up*; Cellulitis of foot; Urinary tract infection with hematuria, site unspecified; Other iron deficiency anemia; Need for vaccination for zoster Allergies Active Allergy Reactions Severity Noted Date Comments Penicillins Rash 02/12/2008 documented as of this encounter (statuses as of 04/28/2020) Medications Medication Sig Dispensed Refills Start Date [...] Dosing Unit 5 10/07/2019 Active nystatin (NYSTOP) 478600 UNIT/GM powder Apply topically to affected area [...] as of this encounter (statuses as of 04/28/2020) Active Problems Problem Noted Date Complicated UTI [...] as of this encounter (statuses as of 04/28/2020) Resolved Problems Problem Noted Date Resolved Date Chronic hypoxemic respiratory failure 04/08/2019 04/18/2019 Oxygen dependent 04/08/2019 04/18/2019 senior living resident 04/08/2019 05/02/2019 Preop examination 02/21/2019 04/04/2019 [...] pain 01/24/2012 01/17/2017 Genetic Sleep Disorder Research Other*[id number] 05/13/2011 04/07/2016 Obstructive sleep apnea 01/18/2011 12/27/19 [...] as of this encounter (statuses as of 04/28/2020) Immunizations Name Administration Dates Next Due HEP [...] have Coronavirus / COVID-19? No / Unsure 04/28/2020 3:25 PM EDT documented as of this encounter Last Filed Vital Signs Vital Sign Reading Time Taken Comments Blood Pressure 114/70 04/28/2020 3:30 PM EDT Pulse 68 04/28/2020 3:30 PM EDT Temperature 36.7 C (98 F) 04/28/2020 3:30 PM EDT Respiratory Rate 20 04/28/2020 3:30 PM EDT Oxygen Saturation - - Inhaled [...] as of this encounter Progress Notes * Jovana Lambert RN - 04/28/2020 3:57 PM EDT Does the patient have active shingles? No If, yes, patient must wait to receive vaccine till after rash is gone. Does the patient have an illness today with a fever more than 101?F? No Has the patient ever had a serious allergic reaction after receiving a vaccination? No Has the patient had a blood test showing they are not immune to Chicken Pox (rare)? No If yes, should get Chicken pox vaccine instead of shingrix. Shingrix Vaccine Information Sheet has been provided. Jovana Lambert RN 04/28/2020 3:57 PM IMMUNIZATION ADMINISTRATION DOCUMENTATION Time Out Procedure Performed: Yes Patient Identified (Ask Name/Date of ): Yes Patient allergic to latex?No VFC Stock? No Immunization(s) verified: Yes, Immunization Name: Shingrix, VIS Sheet(s) given: Yes Verified Side and Site: Yes Verified Shot(s) with Parent(s)/Patient: Yes Shingrix was administered per clinic protocol. Patient received the Shingrix VIS (Vaccine Information Sheet). Jovana Lambert RN, 04/28/2020, 3:57 PM * Rajwinder Carter DO - 04/28/2020 3:41 PM EDT SUBJECTIVE: Chief Complaint Patient presents with Hospital Follow-Up HPI: Shaina Bustos is a 64 year old female who presents today for hospital follow-up. Pt with two recent admissions. The first for right toe cellulitis. She was treated with linezolid. She then returned and found to have yeast in her urine. She is currently on diflucan. See full discharge summary for full details. Pt feels that she is doing well. notes that her toe is "not leaking". She has had some itching and discomfort. She has home nursing coming in 1-2 times a week. Her will change the dressing on other days. She is only on Diflucan currently. She is getting her medications regularly. She is following with wound care in [place] this week. She has an appt with nutrition tomorrow. Pt was off of her iron supplements per GI given high iron. She is concerned about stopping this. PHM: Patient Active Problem List Diagnosis Code Edema R60.9 Venous insufficiency I87.2 Spinal stenosis of lumbar [...] Chronic pain syndrome G89.4 MEDICATION USE AGREEMENT [id number] History of Clostridium difficile colitis Z86.19 Cirrhosis of liver ([facility]) K74.60 THAD on CPAP G47.33, Z99.89 Wheelchair dependent Z99.3 History of recent fall Z91.81 Pancytopenia ([facility]) D61.818 Ambulatory dysfunction R26.2 Fall W19.XXXA Sprain of right ankle S93.401A DM type 2 with diabetic peripheral neuropathy ([facility]) E11.42 Insomnia G47.00 Recurrent major depressive disorder, in partial remission ([facility]) F33.41 Impaired mobility and ADLs Z74.09 Generalized weakness R53.1 Gastroesophageal reflux disease K21.9 History of kidney stones Z87.442 History of Achilles tendon repair Z98.890 History of delivery Z98.891 History of MRSA infection Z86.14 History of migraine Z86.69 Anemia D64.9 Fibromyalgia M79.7 Achilles tendinitis, right leg M76.61 DNR (do not resuscitate) Z66 Thrombocytopenia (HCC) D69.6 Iron deficiency anemia due to chronic blood loss D50.0 Splenomegaly R16.1 Cellulitis of right lower extremity L03.115 Cellulitis of right toe L03.031 Complicated UTI (urinary tract infection) N39.0 Pain of upper abdomen R10.10 Current Outpatient Medications Medication Sig Dispense Refill fluconazole (DIFLUCAN) 200 MG Tablet Take 2 Tabs by mouth daily. 10 Tab 0 mupirocin calcium (BACTROBAN) 2 % ointment Apply topically to affected area 2 times a day. Apply to right toe affected area cover with dressing. 22 g 0 cyclobenzaprine (FLEXERIL) 10 MG Tablet Take 1 Tab by mouth every night at bedtime. 30 Tab 0 tamsulosin (FLOMAX) 0.4 MG Capsule TAKE 1 CAPSULE BY MOUTH ONCE DAILY 90 Cap 1 linaCLOtide (LINZESS) 145 MCG Capsule Take 1 Cap by mouth daily before breakfast. 90 Cap 3 oxybutynin (DITROPAN) 5 MG Tablet TAKE 1 [...] DAILY NEEDED FOR EDEMA 30 Tab 5 MetFORMIN (GLUCOPHAGE) 1000 MG Tablet TAKE 1 TABLET BY MOUTH TWICE DAILY 180 Tab 1 atorvaSTATin (LIPITOR) 40 MG Tablet TAKE 1 [...] test once per day. 100 Each 3 ferrous sulfate (FEOSOL) 325 (65 FE) MG Tablet Take 1 Tab by mouth 2 times a day. 60 Tab 5 nadolol (CORGARD) 20 MG Tablet Take 2 Tabs by mouth daily. 180 Tab 1 Albuterol Sulfate (ALBUTEROL HFA) 108 (90 BASE) MCG/ACT inhaler Inhale 2 Puffs by mouth every 4hours as needed for Cough or Wheezing. With spacer 16 g 1 BD PEN NEEDLE MINI U/F 31G X 5 MM use with basaglar at bedtime 100 Each 10 nystatin (NYSTOP) 589866 UNIT/GM powder Apply topically to affected area 3 times a day. 60 g 1 Semaglutide, 1 MG/DOSE, (OZEMPIC, 1 MG/DOSE,) 2 MG/1.5ML SOPN Inject 1 mg under the skin once aweek. DX:E11.9 2 Pre-filled Pen Syringe Dosing Unit 5 fluticasone (FLONASE) 50 MCG/ACT nasal spray INSTILL 2 SPRAYS INTO EACH NOSTRIL DAILY DIRECTED 16 g 5 vitamin c (ASCORBIC ACID) 500 MG Tablet Take 500 mg by mouth daily. CENTRUM SILVER PO TABS 1 tab daily 1 Tab 0 gabapentin (NEURONTIN) 300 MG Capsule One pill in am, one midday, two in pm, 180 Cap 5 albuterol sulfate (PROVENTIL) (2.5 MG/3ML) 0.083% nebulizer solution Inhale 1 Vial via nebulizer every 6 hours as needed for Wheezing. 120 Vial 11 Past Medical History: Diagnosis Date Chronic hypoxemic respiratory failure (HCC) 04/08/2019 Chronic pain 03/27/2012 DDD (degenerative disc disease), lumbar DM type 2, goal A1c below 7 Dyslipidemia, goal LDL below 70 Hypothyroidism 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 12/27/2010 MEDICATION USE AGREEMENT 03/27/2012 03/27/12 Myalgia and myositis 03/27/2012 NG (nonalcoholic steatohepatitis) 05/02/2012 Other specified infantile cerebral palsy Oxygen dependent 04/08/2019 Restrictive lung disease 12/2014 Sleep apnea CPAP Sleep disturbance 01/24/2012 Past Surgical History: Procedure Laterality Date BONE DEBRIDEMENT, FIRST 20 CM2 Right 04/16/2020 DEBRIDEMENT SKIN SUBCUTANEOUS TISSUE MUSCLE AND BONE performed by Josh Vazquez MD at [facility] DELIVERY 04/20/1982 COLONOSCOPY 04/21/09 repeat in 10 years COLONOSCOPY, DIAGNOSTIC (RECTUM) 10/04/2016 normal bx, repeat 10 yrs/[facility] DENTAL SURGERY PROCEDURE NEC wisdom teeth x 4 DILATION AND CURETTAGE (D&C) EGD, FLEXIBLE, DIAGNOSTIC 10/04/2016 gastritis/[facility] EGD, FLEXIBLE, DIAGNOSTIC 01/11/2018 eso varices, retained food, repeat 1 yr/[facility] PELVIS/HIP JOINT SURGERY NEC teenager aid in walking REPAIR/GRAFT ACHILLES TENDON age 40 aid in walking Review of patient's allergies indicates: Allergen Reactions Pcn [Penicillins] Rash Family History Problem Relation Age of Onset Heart Disorder Father of [place] at age 61 Diabetes Father Heart Disorder Mother of [place] age 72 Cancer None Arthritis None Stroke [...] Use Never User Vaping/E-Cigarette Substances Vaping/E-Cigarette Devices REVIEW OF SYSTEMS: Review of Systems Constitutional: Negative for chills, fatigue, fever and unexpected weight change. Respiratory: Negative for cough, chest tightness, shortness of breath and wheezing. Cardiovascular: Negative for chest pain, palpitations and leg swelling. Gastrointestinal: Negative for abdominal pain, constipation, diarrhea, nausea and vomiting. Musculoskeletal: Negative for arthralgias, gait problem and joint swelling. Skin: Positive for wound. Negative for color change, pallor and rash. As per HPI OBJECTIVE: BP 114/70 | Pulse 68 | Temp (Src) 98 (Tympanic) | Resp 20 | Wt (0.000kg) PHYSICAL EXAM: Physical Exam Constitutional: General: She [...] of motion. General: No tenderness or deformity. Comments: Right foot with new dressing Skin: General: Skin is warm and dry. Coloration: Skin is not pale. Findings: No erythema or rash. Neurological: Mental Status: She is alert and oriented to person, place, and time. ASSESSMENT/PLAN: (Z09) Hospital discharge follow-up (primary encounter diagnosis) (L03.119) Cellulitis of foot (N39.0, R31.9) Urinary tract infection with hematuria, site unspecified Plan: DISCH MED RECON CUR MED LIS Pt will finish out diflucan. Keep appt with wound clinic. Advised to call with any issues. (D50.8) Other iron deficiency anemia Plan: IRON SCREEN, INCLUDING TIBC, FERRITIN, CBC Pt will complete lab studies. She has been off of iron. It was continued on DC from [facility]. If ok, will have her hold. (Z23) Need for vaccination for zoster Plan: ZOSTER VACCINE RECOMB, 2 DOSE, IM (SHINGRIX) Vaccine given. See admin record. Follow-up: 3 months Rajwinder Carter DO documented in this encounter Nursing Notes * Jovana Lambert RN - 04/28/2020 3:30 PM EDT Here for hospital follow up x 2 documented in this encounter Plan of Treatment Upcoming Encounters Date Type Specialty Care Team Description 04/29/2020 Nutrition Services Gastroenterology Melissa Omalley RDN [address] [place] [address] 04/30/2020 Office Visit Wound Care Jefferson Rios MD [address] [place] [address] 05/04/2020 Office Visit Gastroenterology Inocente Gonzalez CRNP [address] [place] [address] [phone] 05/06/2020 Office Visit Gynecology Obstetrics Aman Small, [address] [address] [phone] 05/28/2020 Office Visit Gastroenterology Lyssa Stout CRNP [address] [facility], [place] [id number] 06/03/2020 Hospital Encounter Surgery [facility]is Hatch, DO [address] [facility] [place] [address] [phone] 06/03/2020 Surgery Surgery Janis Hatch, DO [address] [facility], [place] [address] [phone] COLONOSCOPY FLEXIBLE PROXIMAL DIAGNOSTIC 06/30/2020 Office Visit Hematology Oncology Tono Sanchez MD [address] [place] [address] [phone] 07/29/2020 Office Visit Family Medicine Rajwinder Carter, DO [address] [place] [address] [phone] 09/03/2020 Imaging Radiology Pending Results Name Type Priority Associated Diagnoses Date /Time IRON SCREEN, INCLUDING TIBC Lab Routine Other iron deficiency anemia 04/28/2020 4:37 PM EDT FERRITIN Lab Routine Other iron deficiency anemia 04/28/2020 4:37 PM EDT CBC Lab Routine Other iron deficiency anemia 04/28/2020 4:37 PM EDT Scheduled Orders Name Type Priority Associated Diagnoses Orde r Schedule IRON SCREEN, INCLUDING TIBC Lab Routine Other iron deficiency anemia Expected: 04/28/2020 (Approximate), Expires: 04/28/2021 FERRITIN Lab Routine Other iron deficiency anemia Expected: 04/28/2020 (Approximate), Expires: 04/28/2021 CBC Lab Routine Other iron deficiency anemia Expected: 04/28/2020 (Approximate), Expires: 04/28/2021 Health Maintenance Due Date Last Done Comments [...] Hospital discharge follow-up- Primary Other follow-up examination Cellulitis of foot Cellulitis and abscess of foot, except toes Urinary tract infection with hematuria, site unspecified Other iron deficiency anemia Need for vaccination for zoster Need for prophylactic vaccination and inoculation against other viral diseases documented in this encounter Advance Directives Documents on File Type Date Recorded Patient Network Control Supervisor Expl anation Advanced Directive service a [...]
--- OUTSIDE RECORDS SUMMARY | 2023-05-10 22:29 | External Medical Summary ---
Author Name Unknown Address [facility] [place] [address] Phone Organization K01:[place] [address] [place] [id number] Laboratory Report Ordering Provider Test Date Status JANE FLORES 04/28/2020 16:37:00 Final Observation Date Value Abnormality Reference (Units ) Status Iron 04/28/2020 23:31 105 33-151 (ug/dL ) Final Iron-binding capacity 04/28/2020 23:31 334 2 50-425 (ug/dL) Final Transferrin Sat % 04/28/2020 23:31 31 15-55 (%) Final Performing Location [place] [address] [address] [facility] [address]
--- OUTSIDE RECORDS SUMMARY | 2023-05-10 22:29 | External Medical Summary ---
Author Name Unknown Address Unknown Organization R:IT USE ONLY!!! Laboratory Report Ordering Provider Test Date Status JACOB RAMOS 04/25/2020 12:09:00 Final Observation Date Value Abnormality Reference (Units ) Status Glucose Point of Care 04/25/2020 12:25 201 Above high normal 70-120 (mg/dL) Final Performing Location IT USE ONLY!!!
--- OUTSIDE RECORDS SUMMARY | 2023-05-10 22:29 | External Medical Summary ---
Author Name Unknown Address [address] [place] [address] Phone Organization K01:[facility] [address] [place] [id number] Laboratory Report Ordering Provider Test Date Status SHERWIN TREVINO 04/29/2020 20:30:00 Final Observation Date Value Abnormality Reference (Units ) Status Color of Urine by Auto 04/29/2020 21:16 YELLOW YEL Final Clarity, Urine 04/29/2020 21:16 CLEAR CLEAR Final Glucose [Mass/volume] in Urine by Automated test strip 04/29/2020 21:16 1000 Abnormal NEG (mg/dL) Final Bilirubin [Presence] in Urine by Automated test strip 04/29/2020 21:16 NEGATIVE NEG Final Ketones [Mass/volume] in Urine by Automated test strip 04/29/2020 21:16 NEGATIVE NEG (mg/dL) Final Specific gravity, Urine 04/29/2020 21:16 1.029 1.003-1.030 Final Hemoglobin [Presence] in Urine by Automated test strip 04/29/2020 21:16 NEGATIVE NEG Final pH, Urine 04/29/2020 21:16 7.0 5.0-7.5 (units) Final Protein [Mass/volume] in Urine by Automated test strip 04/29/2020 21:16 30 Abnormal NEG (mg/dL) Final Urobilinogen [Mass/volume] in Urine by Automated test strip 04/29/2020 21:16 2 Abnormal NORM (mg/dL) Final Nitrite [Presence] in Urine by Automated test strip 04/29/2020 21:16 NEGATIVE NEG Final Leukocyte esterase [Presence] in Urine by Automated test strip 04/29/2020 21:16 NEGATIVE NEG Final Bacteria [#/area] in Urine by Automated count 04/29/2020 21:16 0-25 [id number] (/HPF) Final Leukocytes [#/area] in Urine sediment by Automated count 04/29/2020 21:16 0-2 U02 (/HPF) Final Erythrocytes [#/area] in Urine sediment by Automated count 04/29/2020 21:16 0-2 U02 (/HPF) Final Performing Location [facility] [address] [facility] [place]. [facility] [address]
--- OUTSIDE RECORDS SUMMARY | 2023-05-10 22:29 | External Medical Summary ---
Author Name Unknown Address [address] [facility] [place] [address] Phone Organization K01:[facility] [address] [facility] [place] [address] Laboratory Report Ordering Provider Test Date Status SHERWIN TREVINO 04/29/2020 19:25:00 Final Observation Date Value Abnormality Reference (Units ) Status WBC, Total 04/29/2020 19:57 4.08 4.00-10.80 (K/uL) Final RBC 04/29/2020 19:57 3.07 Below low normal 3.85-5.15 (M/uL) Final Hemoglobin 04/29/2020 19:57 9.9 Below low normal 12.0-15.3 (g/dL) Final HCT 04/29/2020 19:57 31.0 Below low normal 36.0-45.2 (%) Final MCV 04/29/2020 19:57 101.0 Above high normal 81.5-97.5 (fL) Final MCH 04/29/2020 19:57 32.2 27.0-34.0 (pg) Final MCHC 04/29/2020 19:57 31.9 Below low normal 32.0-36.0 (g/dL) Final RDW 04/29/2020 19:57 14.5 11.5-15.5 (%) Final Platelets 04/29/2020 19:57 84 Below low normal 140-400 (K/uL) Final MPV 04/29/2020 19:57 12.4 Above high normal 6.6-11.1 (fL) Final Nucleated erythrocytes/100 leukocytes [Ratio] in Blood by Automated count 04/29/2020 19:57 1 Above high normal 0 (/100 WBCs) Final Segs 04/29/2020 19:57 61.0 40-75 (%) Final Lymphs % 04/29/2020 19:57 21.6 18-42 (%) Final Monos 04/29/2020 19:57 11.5 Above high normal 1-11 (%) Final Eosinophils 04/29/2020 19:57 4.7 0-6 (%) Final Basos 04/29/2020 19:57 0.7 0-2 (%) Final Immature Granulocyte, Percent 04/29/2020 19:57 0.5 0-2 (%) Final Neutrophils [#/volume] in Blood 04/29/2020 19:57 2.49 1.8-7.7 (K/uL) Final Lymphs, absolute 04/29/2020 19:57 0.88 Below low normal 1.0-4.8 (K/uL) Final Monos, Abs 04/29/2020 19:57 0.47 0.0-1.1 (K/uL) Final Eos, Abs 04/29/2020 19:57 0.19 0.0-0.7 (K/uL) Final Basos, Abs 04/29/2020 19:57 0.03 0.0-0.2 (K/uL) Final Immature Granulocytes, Number 04/29/2020 19:57 0.02 0.0-0.2 (K/uL) Final Performing Location [facility] [address] [facility] [address]
--- OUTSIDE RECORDS SUMMARY | 2023-05-10 22:30 | External Medical Summary ---
Author Name Unknown Address Unknown Organization R:IT USE ONLY!!! Laboratory Report Ordering Provider Test Date Status JACOB RAMOS 04/24/2020 17:03:00 Final Observation Date Value Abnormality Reference (Units ) Status Glucose Point of Care 04/24/2020 18:43 168 Above high normal 70-120 (mg/dL) Final Performing Location IT USE ONLY!!!
--- OUTSIDE RECORDS SUMMARY | 2023-05-10 22:30 | External Medical Summary ---
Author Name Unknown Address [facility] [address] [facility] Phone Organization K01:[place] [id number] Laboratory Report Ordering Provider Test Date Status OUSMANE BACK 04/22/2020 19:44:00 Final Observation Date Value Abnormality Reference (Units ) Status Lactic Acid 04/22/2020 20:18 1.4 0.4-2.0 (mm ol/L) Final Performing Location [address] [address]
--- OUTSIDE RECORDS SUMMARY | 2023-05-10 22:30 | External Medical Summary ---
Author Name Unknown Address [address] [facility] [place] [address] Phone Organization K01:[facility] [address] [place] [id number] Laboratory Report Ordering Provider Test Date Status OUSMANE BACK 04/22/2020 21:41:00 Final Observation Date Value Abnormality Reference (Units) Status Color of Urine by Auto 04/22/2020 22:14 YELLOW YEL Final Clarity, Urine 04/22/2020 22:14 SLIGHTLY CLOUDY Abnormal CLEAR Final Glucose [Mass/volume] in Urine by Automated test strip 04/22/2020 22:14 1000 Abnormal NEG (mg/dL) Final Bilirubin [Presence] in Urine by Automated test strip 04/22/2020 22:14 NEGATIVE NEG Final Ketones [Mass/volume] in Urine by Automated test strip 04/22/2020 22:14 TRACE Abnormal NEG (mg/dL) Final Specific gravity, Urine 04/22/2020 22:14 1.031 Above high normal 1.003-1.030 Final Hemoglobin [Presence] in Urine by Automated test strip 04/22/2020 22:14 LARGE Abnormal NEG Final pH, Urine 04/22/2020 22:14 6.5 5.0-7.5 (units) Final Protein [Mass/volume] in Urine by Automated test strip 04/22/2020 22:14 30 Abnormal NEG (mg/dL) Final Urobilinogen [Mass/volume] in Urine by Automated test strip 04/22/2020 22:14 2 Abnormal NORM (mg/dL) Final Nitrite [Presence] in Urine by Automated test strip 04/22/2020 22:14 NEGATIVE NEG Final Leukocyte esterase [Presence] in Urine by Automated test strip 04/22/2020 22:14 MODERATE Abnormal NEG Final Bacteria [#/area] in Urine by Automated count 04/22/2020 22:14 0-25 [id number] (/HPF) Final Leukocytes [#/area] in Urine sediment by Automated count 04/22/2020 22:14 50+ Abnormal U02 (/HPF) Final Erythrocytes [#/area] in Urine sediment by Automated count 04/22/2020 22:14 50+ Abnormal U02 (/HPF) Final Yeast.budding [Presence] in Urine sediment 04/22/2020 22:14 PRESENT Abnormal NONE (/HPF) Final Epithelial cells.squamous [#/area] in Urine sediment by Automated count 04/22/2020 22:14 MANY Abnormal NONE (/HPF) Final Hyaline casts [#/area] in Urine sediment by Automated count 04/22/2020 22:14 5-9 Abnormal UM1 (/LPF) Final Performing Location [facility] [address] [facility] [address]
--- OUTSIDE RECORDS SUMMARY | 2023-05-10 22:30 | External Medical Summary ---
Author Name Unknown Address [facility] [place] [address] Phone Organization K01:[place] [address] [place] [id number] Laboratory Report Ordering Provider Test Date Status JACOB RAMOS 04/24/2020 16:00:00 Final Observation Date Value Abnormality Reference (Units) Status Source 04/24/2020 16:35 STOOL Final Clostridium difficile DNA [Presence] in Unspecified specimen by Probe & target amplification method 04/24/2020 19:43 NEGATIVE. NO C. DIFFICILE TOXIN B GENE DNA DETECTED BY PCR (AMPLIFIED PROBE). CDIFN Final Performing Location [address] [address]
--- OUTSIDE RECORDS SUMMARY | 2023-05-10 22:30 | External Medical Summary ---
Author Name Unknown Address [facility] [place] [address] Phone Organization K01:[place] [address] [address] [facility] [address] Laboratory Report Ordering Provider Test Date Status SAMANTHA BUTLER 04/24/2020 05:27:00 Final Observation Date Value Abnormality Reference (Units ) Status WBC, Total 04/24/2020 06:27 2.20 Below low normal 4.00-10.80 (K/uL) Final RBC 04/24/2020 06:27 2.84 Below low normal 3.85-5.15 (M/uL) Final Hemoglobin 04/24/2020 06:27 9.3 Below low normal 12.0-15.3 (g/dL) Final HCT 04/24/2020 06:27 31.0 Below low normal 36.0-45.2 (%) Final MCV 04/24/2020 06:27 109.2 Above high normal 81.5-97.5 (fL) Final MCH 04/24/2020 06:27 32.7 27.0-34.0 (pg) Final MCHC 04/24/2020 06:27 30.0 Below low normal 32.0-36.0 (g/dL) Final RDW 04/24/2020 06:27 14.6 11.5-15.5 (%) Final Platelets 04/24/2020 06:27 70 Below low normal 140-400 (K/uL) Final MPV 04/24/2020 06:27 12.9 Above high normal 6.6-11.1 (fL) Final Nucleated erythrocytes/100 leukocytes [Ratio] in Blood by Automated count 04/24/2020 06:27 0 0 (/100 WBCs) Final Performing Location [place] [address] [address] [facility] [address]
--- OUTSIDE RECORDS SUMMARY | 2023-05-10 22:30 | External Medical Summary ---
Author Name Unknown Address Unknown Organization R:IT USE ONLY!!! Laboratory Report Ordering Provider Test Date Status JACOB RAMOS 04/24/2020 11:40:00 Final Observation Date Value Abnormality Reference (Units ) Status Glucose Point of Care 04/24/2020 11:53 177 Above high normal 70-120 (mg/dL) Final Performing Location IT USE ONLY!!!
--- OUTSIDE RECORDS SUMMARY | 2023-05-10 22:30 | External Medical Summary ---
Author Name Unknown Address Unknown Organization R:IT USE ONLY!!! Laboratory Report Ordering Provider Test Date Status JACOB RAMOS 04/23/2020 16:34:00 Final Observation Date Value Abnormality Reference (Units ) Status Glucose Point of Care 04/23/2020 16:54 185 Above high normal 70-120 (mg/dL) Final Performing Location IT USE ONLY!!!
--- OUTSIDE RECORDS SUMMARY | 2023-05-10 22:30 | External Medical Summary | Summary of Care ---
Author Name Unknown Organization [facility] Address [facility] [place] [address] Care Team Providers Care Tier Lift Truck Operator Name Role Phone Rajwinder Carter Primary Care Provider [phone] Reason for Visit * Reason Comments Acute first time she voide d last night was a brownish orange and the 2nd time was red but also had a BM and last time was a orangish color unable to stand to give urine spec. Encounter Details Date Type Department Care Team Description 04/22/2020 Office Visit [facility] [address] [facility] [place] [address] Janett Cohn PA-C [address] [facility] [place] [address] [phone] Abdominal pain, generalized*; Hematuria, unspecified type Allergies Active Allergy Reactions Severity Noted Date Comments Penicillins Rash 02/12/2008 documented as of this encounter (statuses as of 04/22/2020) Medications Medication Sig Dispensed Refills Start Date [...] Dosing Unit 5 10/07/2019 Active nystatin (NYSTOP) 551336 UNIT/GM powder Apply topically to affected area [...] before breakfast. 90 Cap 3 03/30/2020 Active ciprofloxacin (CIPRO) 500 MG Tablet Take 1 Tab by mouth 2 times a day for 8 days. 16 Tab 0 04/18/2020 0 Active linezolid (ZYVOX) 600 MG Tablet Take 1 Tab by mouth 2 times a day for 8 days. 16 Tab 0 04/18/2020 0 Active tamsulosin (FLOMAX) 0.4 MG Capsule TAKE 1 CAPSULE BY MOUTH ONCE DAILY 90 Cap 1 04/22/2020 Active cyclobenzaprine (FLEXERIL) 10 MG Tablet Take 1 Tab by mouth every night at bedtime. 30 Tab 0 04/22/2020 Active documented as of this encounter (statuses as of 04/22/2020) Active Problems Problem Noted Date Cellulitis of right toe 04/18/2020 Cellulitis of [...] as of this encounter (statuses as of 04/22/2020) Resolved Problems Problem Noted Date Resolved Date Chronic hypoxemic respiratory failure 04/08/2019 04/18/2019 Oxygen dependent 04/08/2019 04/18/2019 USP resident 04/08/2019 05/02/2019 Preop examination 02/21/2019 04/04/2019 [...] pain 01/24/2012 01/17/2017 Genetic Sleep Disorder Research Other*[id number] 05/13/2011 04/07/2016 Obstructive sleep apnea 01/18/2011 12/27/19 [...] as of this encounter (statuses as of 04/22/2020) Immunizations Name Administration Dates Next Due HEP [...] Reading Time Taken Comments Blood Pressure 128/68 04/22/2020 3:35 PM EDT Pulse 78 04/22/2020 3:35 PM EDT Temperature 37.3 C (99.1 F) 04/22/2020 3:35 PM ED T Respiratory Rate 18 04/22/2020 3:35 PM EDT Oxygen Saturation - - Inhaled Oxygen Concentration - - Weight - - Height 149.9 cm (4' 11") 04/22/2020 3:35 PM EDT Body Mass Index - - documented in this encounter Functional Status Functional Status Response Date of Assess ment Are you deaf or do you have serious difficulty hearing? No 04/14/2020 Are you blind or do you have serious difficulty seeing, even when wearing glasses? No 04/14/2020 Do you have serious difficul ty walking or climbing stairs? 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 04/14/2020 Do you have difficulty dress ing or bathing? 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-needs help 04/14/2020 Because of a physical, menta l, or emotional condition, do you have difficulty doing errands alone such as visiting a doctor s office or shopping? (15 years old or older) No 04/14/20 20 Cognitive Status Response Date of Assessm ent Because of a physical, menta l, or emotional condition, do you have serious difficulty concentrating, remembering, or making decisions? (5 years old or older No 04/14/2020 documented as of this encounter Progress Notes * Janett Cohn PA-C - 04/22/2020 3:48 PM EDT Shaina Bustos is a 64 year old year old female who presents for : Chief Complaint Patient presents with Acute first time she voided last night was a brownish orange and the 2nd time was red but also had a BM and last time was a orangish color unable to stand to give urine spec. HPI: Shaina Bustos is a 64 year old wheelchair bound female with a history significant for type 2 diabetes,HTN, cirrhosis of liver, cerebral palsy, venous insufficiency, and iron-deficiency anemia. She comes to the clinic today for blood in the urine today. She had this 04/10/20 as well. Pt havingbrown to orange color with urination this morning. Then solid red with urination later. Now more ofa dark color of urine. She doesn't feel good in her belly she states. Initially stated 1 day of abdpain, later noting 2 days of abd pain. C/o 10/10 pain at this time. Last BM was this morning. Normal consistency. cares for her. He notes there is no blood with wiping anywhere. She denies fever, chill, diarrhea, constipation or vomiting. She is eating and drinking okay she states. noted eating her normal amount. She does have kidney stones known. She states she has chronic back pains. She states she just wants to go to the ER in [place]. Of note pt was recently discharged from [facility] s/p right great toe debridement for cellulitiswith concern for gangrene. She is currently on cipro and linezolid. Denies additional complaints. REVIEW OF SYSTEMS: See HPI for pertinent positives and negatives. Patient denies addtional complaints. PAST MEDICAL HISTORY: Past Medical History: Diagnosis Date Chronic hypoxemic [...] BONE performed by Josh Vazquez MD at [facility] DELIVERY 04/20/1982 COLONOSCOPY 04/21/09 repeat in 10 years COLONOSCOPY, DIAGNOSTIC (RECTUM) 10/04/2016 normal bx, repeat 10 yrs/[facility] DENTAL SURGERY PROCEDURE NEC wisdom teeth x 4 DILATION AND CURETTAGE (D&C) EGD, FLEXIBLE, DIAGNOSTIC 10/04/2016 gastritis/[facility] EGD, FLEXIBLE, DIAGNOSTIC 01/11/2018 eso varices, retained food, repeat 1 yr/[facility] PELVIS/HIP JOINT SURGERY NEC teenager aid in walking REPAIR/GRAFT ACHILLES TENDON age 40 aid in walking Social History Tobacco Use Smoking status: Never Smoker Smokeless tobacco: Never Used Substance Use Topics Alcohol use: No Vaping/E-Cigarette Use Vaping/E-Cigarette Use Never User Vaping/E-Cigarette Substances Vaping/E-Cigarette Devices Patient Active Problem List Diagnosis Code Edema [...] Chronic pain syndrome G89.4 MEDICATION USE AGREEMENT [id number] History of Clostridium difficile colitis Z86.19 Cirrhosis of liver ([facility]) K74.60 THAD on CPAP G47.33, Z99.89 Wheelchair dependent Z99.3 History of recent fall Z91.81 Pancytopenia ([facility]) D61.818 Ambulatory dysfunction R26.2 Fall W19.XXXA Sprain of right ankle S93.401A DM type 2 with diabetic peripheral neuropathy ([facility]) E11.42 Insomnia G47.00 Recurrent major depressive disorder, in partial remission ([facility]) F33.41 Impaired mobility and ADLs Z74.09 Generalized weakness R53.1 Gastroesophageal reflux disease K21.9 History of kidney stones Z87.442 History of Achilles tendon repair Z98.890 History of delivery Z98.891 History of MRSA infection Z86.14 History of migraine Z86.69 Anemia D64.9 Fibromyalgia M79.7 Achilles tendinitis, right leg M76.61 DNR (do not resuscitate) Z66 Thrombocytopenia ([facility]) D69.6 Iron deficiency anemia due to chronic blood loss D50.0 Splenomegaly R16.1 Cellulitis of right lower extremity L03.115 Cellulitis of right toe L03.031 Family History Problem Relation Age of Onset Heart Disorder Father of MA at age 61 Diabetes Father Heart Disorder Mother of MA age 72 Cancer None Arthritis None Stroke None Heart Disorder Sister Mi at age 46 Hypertension Sister Mental Disorder None Review of patient's allergies indicates: Allergen Reactions Pcn [Penicillins] Rash Current Outpatient Medications Medication Sig Dispense Refill tamsulosin (FLOMAX) 0.4 MG Capsule TAKE 1 CAPSULE BY MOUTH ONCE DAILY 90 Cap 1 ciprofloxacin (CIPRO) 500 MG Tablet Take 1 Tab by mouth 2 times a day for 8 days. 16 Tab 0 linezolid (ZYVOX) 600 MG Tablet Take 1 Tab by mouth 2 times a day for 8 days. 16 Tab 0 linaCLOtide (LINZESS) 145 MCG Capsule Take 1 [...] Tab by mouth daily. 90 Tab 3 MetFORMIN (GLUCOPHAGE) 1000 MG Tablet TAKE 1 [...] test once per day. 100 Each 3 gabapentin (NEURONTIN) 300 MG Capsule One pill [...] at bedtime 100 Each 10 nystatin (NYSTOP) 061439 UNIT/GM powder Apply topically to affected area [...] TABS 1 tab daily 1 Tab 0 cyclobenzaprine (FLEXERIL) 10 MG Tablet Take 1 Tab by mouth every night at bedtime. 30 Tab 0 furosemide (LASIX) 20 MG Tablet TAKE 1 TABLET BY MOUTH ONCE DAILY NEEDED FOR EDEMA 30 Tab 5 ferrous sulfate (FEOSOL) 325 (65 FE) MG Tablet Take 1 Tab by mouth 2 times a day. 60 Tab 5 albuterol sulfate (PROVENTIL) (2.5 MG/3ML) 0.083% nebulizer solution Inhale 1 Vial via nebulizer every 6 hours as needed for Wheezing. 120 Vial 11 Nursing Notes and Vital Signs reviewed. PHYSICAL EXAM: VITALS: BP 128/68 | Pulse 78 | Temp (Src) 99.1 (Tympanic) | Resp 18 | Ht 4' 11" (1.499m) | Wt (0.000kg) | BMI 51.14 kg/m | BSA 2.19 m GENERAL: Patient is alert, sitting in electric wheelchair. NAD in clinic. HEAD: Normocephalic, no masses, lesions, or other abnormalities noted. LUNGS: Normal respiratory rate and normal respiratory effort. No wheeze, rhonchi or rales HEART: RRR, no murmurs ABDOMEN: Obese, very limited exam as pt is wheelchair bound. There is some TTP across abdomen, she notes central abd pain as the worst. No guarding on exam noted. EXTREMITIES: right foot is bandaged. Assessment: Abdominal pain, generalized (Primary) Hematuria, unspecified type Pt stating to me that she wants to go to the ER for her complaints today. She is unable to give us a urine sample tonight or at home she states. Pt in clinic without appearance of distress. VSS. She is eating and drinking but stating 10/10 pain which does appear out of proportion to objective exam.Pt plans to proceed for further evaluation at the ER. Janett Cohn PA-C Family [address] [place] [address] documented in this encounter Nursing Notes * Francisca Hassan LPN - 04/22/2020 3:38 PM EDT The patient has been properly identified by confirmation of name and date of . Chief Complaint Patient presents with Acute first time she voided last night was a brownish orange and the 2nd time was red but also had a BM and last time was a orangish color unable to stand to give urine spec. documented in this encounter Plan of Treatment Upcoming Encounters Date Type Specialty Care Team Description 04/28/2020 Office Visit Family Medicine Rajwinder Carter, DO [address] [place] [address] [phone] 04/29/2020 Nutrition Services Gastroenterology Melissa Omalley, SAMANTHA [address] [facility] [address] [place] [address] [phone] 04/30/2020 Office Visit Wound Care Jefferson Rios MD [address] [place] [address] [phone] 05/04/2020 Office Visit Gastroenterology Inocente Gonzalez CRNP 132 [facility] [place] [address] [phone] 05/06/2020 Office Visit Gynecology Obstetrics Aman Small, MANAV [address] [facility] [place] [address] [phone] 05/28/2020 Office Visit Gastroenterology Lyssa Stout CRNP [address] [facility] [place] [address] [phone] 06/03/2020 Hospital Encounter Surgery Janis Hatch, [address] [facility] [place] [address] [phone] 06/03/2020 Surgery Surgery Janis Hatch, DO [address] [address] [phone] COLONOSCOPY FLEXIBLE PROXIMAL DIAGNOSTIC 06/30/2020 Office Visit Hematology Oncology Tono Sanchez MD [address] [place] [address] [phone] 09/03/2020 Imaging Radiology Health Maintenance Due Date [...] 01/09/2019, 12/26/2017, Additional history exists Yearly B-12 02/20/2021 02/21/2020, 03/10/2019, 12/24/2018, Additional history exists DTaP,Tdap,and Td Vaccines (3 [...] Visit Diagnoses Diagnosis Abdominal pain, generalized- Primary Hematuria, unspecified type documented in this encounter Advance Directives Documents on File Type Date Recorded Patient Director Of Convention Services 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 Advanced Directive 04/15/2020 12:36 PM Latest Code Status on File Code Status Date Activated Date Inactivated Comments Full Code 04/14/2020 7:55 PM 04/19/2020 8:08 PM This or dayo reflects the patients wishes and were consensually agreed upon. is the patient's healthcare proxy. Discussion of Advance Directives occurred with: Patient Does the patient have a Living Will? No Does the patient have Health Care Power of Attor elsie? No
--- OUTSIDE RECORDS SUMMARY | 2023-05-10 22:30 | External Medical Summary ---
Author Name Unknown Address [facility] [address] [place] [id number] Phone Organization K01:[place] [address] [address] [place] [id number] Laboratory Report Ordering Provider Test Date Status SAMANTHA BUTLER 04/24/2020 05:27:00 Final Observation Date Value Abnormality Reference (Units ) Status Magnesium 04/24/2020 06:11 1.8 1.5-2.6 (mg/d L) Final Performing Location [address] [address]
--- OUTSIDE RECORDS SUMMARY | 2023-05-10 22:30 | External Medical Summary ---
Author Name Unknown Address [facility] N [facility] [place] [address] Phone Organization K01:[place] [address] [place] [id number] Laboratory Report Ordering Provider Test Date Status WONGOUSMANE 04/22/2020 19:44:00 Final Observation Date Value Abnormality Reference (Units ) Status Albumin 04/22/2020 20:17 3.8 3.8-5.0 (g/dL) Final AST (Aspartate aminotransferase) 04/22/2020 20:17 37 Above high normal 10-35 (U/L) Final Alk Phos 04/22/2020 20:17 154 Above high normal 0-153 (U/L) Final ALT (Alanine aminotransferase) 04/22/2020 20:17 21 10-35 (U/L) Final Bilirubin, Total 04/22/2020 20:17 0.6 0-1.2 (mg/dL) Final Bilirubin, Direct 04/22/2020 20:17 0.3 0-0.3 (mg/dL) Final Protein 04/22/2020 20:17 7.2 6.0-8.3 (g/dL) Final Performing Location [place] [address] [address] [facility] [address]
--- OUTSIDE RECORDS SUMMARY | 2023-05-10 22:30 | External Medical Summary ---
Author Name Unknown Address Unknown Organization R:IT USE ONLY!!! Laboratory Report Ordering Provider Test Date Status JACOB RAMOS 04/23/2020 11:45:00 Final Observation Date Value Abnormality Reference (Units ) Status Glucose Point of Care 04/23/2020 11:51 218 Above high normal 70-120 (mg/dL) Final Performing Location IT USE ONLY!!!
--- OUTSIDE RECORDS SUMMARY | 2023-05-10 22:30 | External Medical Summary | Summary of Care ---
Author Name Unknown Organization [facility] Address [place] [address] Care Team Providers Care Powder Press Operator Name Role Phone Rajwinder Carter DO Primary Care Provider [phone] Reason for Visit * Reason Comments Advice Encounter Details Date Type Department Care Team Description 04/22/2020 Telephone [facility] [address] [place] [address] Rajwinder Carter DO [address] [place] [address] Advice Allergies Active Allergy Reactions [...] Dosing Unit 5 10/07/2019 Active nystatin (NYSTOP) 308956 UNIT/GM powder Apply topically to affected area [...] dependent 04/08/2019 04/18/2019 shelter resident 04/08/2019 05/02/2019 Preop examination 02/21/2019 04/04/2019 [...] pain 01/24/2012 01/17/2017 Genetic Sleep Disorder Research Other*[id number] 05/13/2011 04/07/2016 Obstructive sleep apnea 01/18/2011 12/27/19 [...] Never true Sex Assigned at Date Recorded Not on file Job Start Date Occupation Industry Not on file Not on file Not on file Travel History Travel Start Travel End COVID-19 Exposure Response Date Recorded In the last month, have you been in contact with someone who was confirmed or suspected to have Coronavirus / COVID-19? No / Unsure 04/20/2020 12:05 PM EDT documented as of this encounter [...] No 04/14/2020 documented as of this encounter Miscellaneous Notes * Telephone Encounter - Dominique Kan LPN - 04/22/2020 12:39 PM EDT Pt calling with complaint of hematuria. Pt spouse states that it has gotten worse thorough the morning. Acute appt scheduled in [facility]. Pt aware and agreeable to clinic change. * Telephone Encounter - Daniella Vela OSA - 04/22/2020 12:25 PM EDT Reason for patient's call: bleeding with urination today. Pt stated that she just got out the hospital in [place] Caller was transferred to Dominique at the nurse line. documented in this encounter Plan of Treatment Upcoming Encounters Date Type Specialty Care Team Description 04/22/2020 Office Visit Family Medicine Janett Cohn PA-C [address] [facility] [place] [address] 04/28/2020 Office Visit Family Medicine Rajwinder Carter, [address] [place] [address] 04/29/2020 Nutrition Services Gastroenterology Melissa Omalley, SAMANTHA [address] [place] [address] [place] [address] 04/30/2020 Office Visit Wound Care Jefferson Rios MD [address] [place] [address] [phone] 05/04/2020 Office Visit Gastroenterology Inocente Gonzalez CRNP 132 [facility] [place] [address] 05/06/2020 Office Visit Gynecology Obstetrics Aman Small, BOOM [facility] [place] [address] 05/28/2020 Office Visit Gastroenterology Lyssa Stout CRNP [address] [place] [address] 06/03/2020 Hospital Encounter Surgery Janis Hatch DO [address] [facility] [place] [address] [phone] 06/03/2020 Surgery Surgery Janis Hatch, DO [address] [place] [address] [phone] COLONOSCOPY FLEXIBLE PROXIMAL DIAGNOSTIC 06/30/2020 Office Visit Hematology Oncology Tono Sanchez MD 200 [place] [address] [phone] 09/03/2020 Imaging Radiology Health Maintenance Due Date [...] Additional history exists Yearly B-12 02/20/2021 02/21/2020, 0310/2019, 12/24/2018, Additional history exists DTaP,Tdap,and Td Vaccines [...] Documents on File Type Date Recorded Patient Iphone Developer Expl anation Advanced Directive service a [...]
--- OUTSIDE RECORDS SUMMARY | 2023-05-10 22:30 | External Medical Summary ---
Author Name Unknown Address [address] [facility] [place] [address] Phone Organization K01:[facility] [address] [facility] [place] [address] Laboratory Report Ordering Provider Test Date Status OUSMANE BACK 04/22/2020 19:44:00 Final Observation Date Value Abnormality Reference (Units ) Status BUN 04/22/2020 20:17 11 6-20 (mg/dL) Final Creatinine 04/22/2020 20:17 0.6 0.5-1.0 (mg/ dL) Final E Glom Filt Rate 04/22/2020 20:17 >60.0 >60 Final Performing Location [facility] [address] [facility] [place] [address]
--- OUTSIDE RECORDS SUMMARY | 2023-05-10 22:30 | External Medical Summary ---
Author Name Unknown Address Unknown Organization R:IT USE ONLY!!! Laboratory Report Ordering Provider Test Date Status JACOB RAMOS 04/23/2020 07:26:00 Final Observation Date Value Abnormality Reference (Units ) Status Glucose Point of Care 04/23/2020 08:13 191 Above high normal 70-120 (mg/dL) Final Performing Location IT USE ONLY!!!
--- OUTSIDE RECORDS SUMMARY | 2023-05-10 22:30 | External Medical Summary ---
Author Name Unknown Address [address] [facility] [place] [address] Phone Organization K01:[facility] [address] [facility] [place] [address] Laboratory Report Ordering Provider Test Date Status SAMANTHA BUTLER 04/24/2020 05:27:00 Final Observation Date Value Abnormality Reference (Units ) Status BUN 04/24/2020 06:11 11 6-20 (mg/dL) Final Creatinine 04/24/2020 06:11 0.6 0.5-1.0 (mg/ dL) Final E Glom Filt Rate 04/24/2020 06:11 >60.0 >60 Final Performing Location [facility] [address] [facility] [place] [address]
--- OUTSIDE RECORDS SUMMARY | 2023-05-10 22:30 | External Medical Summary ---
Author Name Unknown Address Unknown Organization R:IT USE ONLY!!! Laboratory Report Ordering Provider Test Date Status JACOB RAMOS 04/23/2020 21:42:00 Final Observation Date Value Abnormality Reference (Units ) Status Glucose Point of Care 04/23/2020 22:06 172 Above high normal 70-120 (mg/dL) Final Performing Location IT USE ONLY!!!
--- OUTSIDE RECORDS SUMMARY | 2023-05-10 22:30 | External Medical Summary ---
Author Name Unknown Address [address] [facility] [place] [address] Phone Organization K01:[facility] [address] [facility] [place] [address] Laboratory Report Ordering Provider Test Date Status OUSMANE BACK 04/22/2020 19:44:00 Final Observation Date Value Abnormality Reference (Units ) Status WBC, Total 04/22/2020 20:02 3.84 Below low normal 4.00-10.80 (K/uL) Final RBC 04/22/2020 20:02 3.41 Below low normal 3.85-5.15 (M/uL) Final Hemoglobin 04/22/2020 20:02 11.0 Below low normal 12.0-15.3 (g/dL) Final HCT 04/22/2020 20:02 36.2 36.0-45.2 (%) Final MCV 04/22/2020 20:02 106.2 Above high normal 81.5-97.5 (fL) Final MCH 04/22/2020 20:02 32.3 27.0-34.0 (pg) Final MCHC 04/22/2020 20:02 30.4 Below low normal 32.0-36.0 (g/dL) Final RDW 04/22/2020 20:02 15.0 11.5-15.5 (%) Final Platelets 04/22/2020 20:02 98 Below low normal 140-400 (K/uL) Final MPV 04/22/2020 20:02 12.3 Above high normal 6.6-11.1 (fL) Final Nucleated erythrocytes/100 leukocytes [Ratio] in Blood by Automated count 04/22/2020 20:02 0 0 (/100 WBCs) Final Segs 04/22/2020 20:59 59.1 40-75 (%) Final Lymphs % 04/22/2020 20:59 24.0 18-42 (%) Final Monos 04/22/2020 20:59 9.1 1-11 (%) Final Eosinophils 04/22/2020 20:59 6.3 Above high normal 0-6 (%) Final Basos 04/22/2020 20:59 1.0 0-2 (%) Final Immature Granulocyte, Percent 04/22/2020 20:59 0.5 0-2 (%) Final Neutrophils [#/volume] in Blood 04/22/2020 20:59 2.27 1.8-7.7 (K/uL) Final Lymphs, absolute 04/22/2020 20:59 0.92 Below low normal 1.0-4.8 (K/uL) Final Monos, Abs 04/22/2020 20:59 0.35 0.0-1.1 (K/uL) Final Eos, Abs 04/22/2020 20:59 0.24 0.0-0.7 (K/uL) Final Basos, Abs 04/22/2020 20:59 0.04 0.0-0.2 (K/uL) Final Immature Granulocytes, Number 04/22/2020 20:59 0.02 0.0-0.2 (K/uL) Final Macrocytes [Presence] in Blood by Light microscopy 04/22/2020 20:59 PRESENT Final Ovalocytes [Presence] in Blood by Light microscopy 04/22/2020 20:59 FEW Final Performing Location [facility] [address] [place] [address]
--- OUTSIDE RECORDS SUMMARY | 2023-05-10 22:30 | External Medical Summary ---
Author Name Unknown Address Unknown Organization R:IT USE ONLY!!! Laboratory Report Ordering Provider Test Date Status JACOB RAMOS 04/24/2020 07:32:00 Final Observation Date Value Abnormality Reference (Units ) Status Glucose Point of Care 04/24/2020 09:08 143 Above high normal 70-120 (mg/dL) Final Performing Location IT USE ONLY!!!
--- OUTSIDE RECORDS SUMMARY | 2023-05-10 22:30 | External Medical Summary | Summary of Care ---
Author Name Unknown Organization [place] [address] Care Team Providers Care Harbor Engineer Name Role Phone Rajwinder Lara DO Primary Care Provider [phone] Reason for Visit * Reason Comments eRx-Medication Refill Encounter Details Date Type Department Care Team Description 04/20/2020 Refill [place] [address] [place] [address] Rajwinder Lara DO [address] [place] [address] [phone] Allergies Active Allergy Reactions Severity Noted Date [...] Dosing Unit 5 0 Active nystatin (NYSTOP) 441798 UNIT/GM powder Apply topically to affected area [...] 1 0 Active MetFORMIN (GLUCOPHAGE) 1000 MG TabletIndication [...] TWICE DAILY 60 Tab 5 0 Active linaCLOtide (LINZESS) 145 MCG Capsule Take 1 Cap by mouth daily before breakfast. 90 Cap 3 0 Active ciprofloxacin (CIPRO) 500 MG Tablet Take 1 Tab by mouth 2 times a day for 8 days. 16 Tab 0 0 04/26/20 20 Active linezolid (ZYVOX) 600 MG Tablet Take 1 Tab by mouth 2 times a day for 8 days. 16 Tab 0 0 04/26/20 20 Active tamsulosin (FLOMAX) 0.4 MG Capsule TAKE 1 CAPSULE BY MOUTH ONCE DAILY 90 Cap 1 08/12/202 0 Active cyclobenzaprine (FLEXERIL) 10 MG Tablet Take 1 Tab by mouth every night at bedtime. 30 Tab 0 0 Active tamsulosin (FLOMAX) 0.4 MG Capsule TAKE 1 CAPSULE BY MOUTH ONCE DAILY 30 Cap 0 0 04/22/20 20 Discontinued cyclobenzaprine (FLEXERIL) 10 MG Tablet TAKE 1 TABLET BY MOUTH EVERY NIGHT AT BEDTIME. 30 Tab 0 0 04/22/20 20 Discontinued(Ref ill) documented as of this encounter [...] dependent 04/08/2019 04/18/2019 snf resident 04/08/2019 05/02/2019 Preop examination 02/21/2019 04/04/2019 [...] pain 01/24/2012 01/17/2017 Genetic Sleep Disorder Research Other*[id number] 05/13/2011 04/07/2016 Obstructive sleep apnea 01/18/2011 12/27/19 [...] Telephone Encounter - Rajwinder Lara DO - 04/22/2020 11:16 AM EDT Signed Prescriptions: Disp Refills tamsulosin (FLOMAX) 0.4 MG Capsule 90 Cap 1 Sig: TAKE 1 CAPSULE BY MOUTH ONCE DAILYAuthorizing Provider: RAJWINDER LARA cyclobenzaprine (FLEXERIL) 10 MG Tablet 30 Tab 0 Sig: Take 1 Tab by mouth every night at bedtime.Authorizing Provider: RAJWINDER LARAfused Prescriptions: Disp Refills cyclobenzaprine (FLEXERIL) 10 MG Tablet [P*30 Tab 0 Sig: TAKE 1 TABLET BY MOUTH AT BEDTIME Refused By: RAJWINDER LARAason for Refusal: Contraindicated -- * Telephone Encounter - Rajwinder Lara DO - 04/22/2020 11:15 AM EDT Signed Prescriptions: Disp Refills tamsulosin (FLOMAX) 0.4 MG Capsule 90 Cap 1 Sig: TAKE 1 CAPSULE BY MOUTH ONCE DAILY Authorizing Provider: RAJWINDER LARA cyclobenzaprine (FLEXERIL) 10 MG Tablet 30 Tab 0 Sig: Take 1 Tab by mouth every night at bedtime. Authorizing Provider: RAJWINDER LARA Refused Prescriptions: Disp Refills c yclobenzaprine (FLEXERIL) 10 MG Tablet [P*30 Tab 0 Sig: TAKE 1 TABLET BY MOUTH AT BEDTIME Refused By: RAJWINDER LARA Reason for Refusal: Contraindicated * Telephone Encounter - Imelda Duque, shipping supervisor - 04/22/2020 10:01 AM EDT Pharmacy calling about cyclobenzaprine. Per pharmacy the pt is a blister pack pt and would not pickthis up until the weekend. They are asking for the script to be sent as the antibiotic would be completed by then. Pending Prescriptions: Disp Refills cyclobenzaprine (FLEXERIL) 10 MG Tablet 30 Tab 0 Sig: Take 1 Tab by mouth every night at bedtime. Signed Prescriptions: Disp Refills tamsulosin (FLOMAX) 0.4 MG Capsule 90 Cap 1 Sig: TAKE 1 CAPSULE BY MOUTH ONCE DAILY Authorizing Provider: RAJWINDER LARA Refused Prescriptions: Disp Refills cyclobenzaprine (FLEXERIL) 10 MG Tablet [P*30 Tab 0 Sig: TAKE 1 TABLET BY MOUTH AT BEDTIME Refused By: RAJWINDER LARA Reason for Refusal: Contraindicated Last Office/Telemedicine Visit: 04/10/2020 Next Office Visit: 04/28/2020 Scheduled Provider(s): Rajwinder Lara DO If no future appointments scheduled, and last appointment is greater than a year ago, please schedule patient for a follow-up appointment Last date the medication was ordered: 03/27/2020 Pharmacy: [facility] [address] [place] [address] Is this request for a controlled substance?No Urine Drug Screen:No results found. However, due to the size of the patient record, not all encounters were searched. Please check Results Review for a complete set of results. Patient Phone Numbers Labs: Lab Results Component Value Date/Time CREAT 0.7 04/19/2020 08:39 AM POTASSIUM 4.0 04/19/2020 08:39 AM TSH 5.15 (H) 02/21/2020 11:43 AM LDLCALC 43 04/05/2019 06:40 AM LDLDIRECT 46 02/21/2020 11:43 AM ALT 30 02/21/2020 11:43 AM HGBA1C 6.7 (H) 02/21/2020 11:43 AM * Telephone Encounter - Rajwinder Lara DO - 04/22/2020 9:55 AM EDT Signed Prescriptions: Disp Refills tamsulosin (FLOMAX) 0.4 MG Capsule 90 Cap 1 Sig: TAKE 1 CAPSULE BY MOUTH ONCE DAILY Authorizing Provider: RAJWINDER LARA Refused Prescriptions: Disp Refills cyclobenzaprine (FLEXERIL) 10 MG Tablet [P*30 Tab 0 Sig: TAKE 1 TABLET BY MOUTH AT BEDTIME Refused By: RAJWINDER LARA Reason for Refusal: Co ntraindicated * Telephone Encounter - Rajwinder Lara DO - 04/22/2020 9:54 AM EDT Tamsulosin sent. Cannot use cyclobenzaprine with current antibiotic. This was not sent. Can furtherdiscuss at her appt. * Telephone Encounter - Mirella Talavera, [facility] - 04/22/2020 9:50 AM EDT Pending Prescriptions: Disp Refills cyclobenzaprine (FLEXERIL) 10 MG Tablet [P*30 Tab 0 Sig: TAKE 1 TABLET BY MOUTH AT BEDTIME tamsulosin (FLOMAX) 0.4 MG Capsule [Pharma*90 Cap 1 Sig: TAKE 1 CAPSULE BY MOUTH ONCE DAILY * Telephone Encounter - Mirella Talavera RPh - 04/22/2020 9:50 AM EDT Refill pharmacists currently not authorized to approve refills for this class of medication per refill protocol. Please approve if appropriate. Pending Prescriptions: Disp Refills cyclobenzaprine (FLEXERIL) 10 MG Tablet [P*30 Tab 0 Sig: TAKE 1 TABLET BY MOUTH AT BEDTIME tamsulosin (FLOMAX) 0.4 MG Capsule [Pharma*90 Cap 1 Sig: TAKE 1 CAPSULE BY MOUTH ONCE DAILY Last Office/Telemedicine Visit: 04/10/2020 Next Office Visit: 04/28/2020 Scheduled Provider(s): Rajwinder Lara DO If no future appointments scheduled, and last appointment is greater than a year ago, please schedule patient for a follow-up appointment Last date the medication was ordered: 03/27/20, 02/26/20 Pharmacy: [facility] [id number] Is this request for a controlled substance? no Urine Drug Screen:No results found. However, due to the size of the patient record, not all encounters were searched. Please check Results Review for a complete set of results. Patient Phone Numbers Labs: Lab Results Component Value Date/Time CREAT 0.7 04/19/2020 08:39 AM POTASSIUM 4.0 04/19/2020 08:39 AM TSH 5.15 (H) 02/21/2020 11:43 AM LDLCALC 43 04/05/2019 06:40 AM LDLDIRECT 46 02/21/2020 11:43 AM ALT 30 02/21/2020 11:43 AM HGBA1C 6.7 (H) 02/21/2020 11:43 AM documented in this encounter Plan of Treatment Upcoming Encounters Date Type Specialty Care Team Description 04/28/2020 Office Visit Family Medicine Rajwinder Lara DO [address] [place] [address] [phone] 04/29/2020 Nutrition Services Gastroenterology Melissa Omalley, RDN [address] [place] [id number] 04/30/2020 Office Visit Wound Care Jefferson Rios MD [address] [place] [address] [phone] 05/04/2020 Office Visit Gastroenterology Inocente Gonzalez CRNP [address] [facility] [place] [address] [phone] 05/06/2020 Office Visit Gynecology Obstetrics Aman Small, BOO [address] [facility] [place] [id number] 05/28/2020 Office Visit Gastroenterology Lyssa Stout CRNP [address] [facility] [place] [address] [phone] 06/03/2020 Hospital Encounter Surgery Janis Hatch, DO [address] [facility] [place] [address] [phone] 06/03/2020 Surgery Surgery Janis Hatch, DO [address] [facility] [place] [address] [phone] COLONOSCOPY FLEXIBLE PROXIMAL DIAGNOSTIC 06/30/2020 Office Visit Hematology Oncology Tono Sanchez MD [address] [place] [address] [phone] 09/03/2020 Imaging Radiology Health Maintenance Due Date [...] Additional history exists Yearly B-12 02/20/2021 02/21/2020, 10/2019, 12/24/2018, Additional history exists DTaP,Tdap,and Td Vaccines [...] Documents on File Type Date Recorded 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
--- OUTSIDE RECORDS SUMMARY | 2023-05-10 22:30 | External Medical Summary ---
Author Name Unknown Address [facility] [address] [facility] [place] [address] Phone Organization K01:[place] [address] [facility] [place] [address] Laboratory Report Ordering Provider Test Date Status LISSETTE TOMPKINS 04/22/2020 21:41:00 Final Observation Date Value Abnormality Reference (Units) Status Source 04/22/2020 23:27 URINE Final Bacteria identified in Unspecified specimen by Culture 04/25/2020 11:44 10,000 TO 100,000 COLONIES/ML SACCHAROMYCES CEREVISIAE Abnormal Final Bacteria identified in Unspecified specimen by Culture 04/25/2020 11:44 FINAL RESULTS MODIFIED, MOST RECENT RESULT Final REPORT STATUS 04/25/2020 11:44 04/25/2020 FINAL Final Performing Location [address] [place] [address]
--- OUTSIDE RECORDS SUMMARY | 2023-05-10 22:30 | External Medical Summary ---
Author Name Unknown Address [facility] [address] [place] [phone] Phone Organization K01:[place] [id number] Laboratory Report Ordering Provider Test Date Status OUSMANE BACK 04/22/2020 19:44:00 Final Observation Date Value Abnormality Reference (Units ) Status Lipase 04/22/2020 20:17 18 13-60 (U/L) F inal Performing Location [address] [address]
--- OUTSIDE RECORDS SUMMARY | 2023-05-10 22:31 | External Medical Summary ---
Author Name Unknown Address [address] [facility] [place] [address] Phone Organization [facility] [address] [facility] [place] [address] Laboratory Report Ordering Provider Test Date Status ALEJANDRO LUCIA 04/17/2020 09:03:00 Final Observation Date Value Abnormality Reference (Units ) Status WBC, Total 04/17/2020 10:49 3.76 Below low normal 4.00-10.80 (K/uL) Final RBC 04/17/2020 10:49 3.08 Below low normal 3.85-5.15 (M/uL) Final Hemoglobin 04/17/2020 10:49 10.5 Below low normal 12.0-15.3 (g/dL) Final HCT 04/17/2020 10:49 32.2 Below low normal 36.0-45.2 (%) Final MCV 04/17/2020 10:49 104.5 Above high normal 81.5-97.5 (fL) Final MCH 04/17/2020 10:49 34.1 Above high normal 27.0-34.0 (pg) Final MCHC 04/17/2020 10:49 32.6 32.0-36.0 (g/dL) Final RDW 04/17/2020 10:49 15.0 11.5-15.5 (%) Final Platelets 04/17/2020 10:49 104 Below low normal 140-400 (K/uL) Final MPV 04/17/2020 10:49 13.2 Above high normal 6.6-11.1 (fL) Final nRBC/100 WBC Bld Auto-Rto 04/17/2020 10:49 2 Above high normal 0 (/100 WBCs) Final Segs 04/17/2020 10:54 60.1 40-75 (%) Final Lymphs % 04/17/2020 10:54 22.1 18-42 (%) Final Monos 04/17/2020 10:54 9.0 1-11 (%) Final Eosinophils 04/17/2020 10:54 5.9 0-6 (%) Final Basos 04/17/2020 10:54 1.3 0-2 (%) Final Immature Granulocyte, Percent 04/17/2020 10:54 1.6 0-2 (%) Final Neutrophils Bld 04/17/2020 10:54 2.26 1.8-7.7 (K/uL) Final Lymphs, absolute 04/17/2020 10:54 0.83 Below low normal 1.0-4.8 (K/uL) Final Monos, Abs 04/17/2020 10:54 0.34 0.0-1.1 (K/uL) Final Eos, Abs 04/17/2020 10:54 0.22 0.0-0.7 (K/uL) Final Basos, Abs 04/17/2020 10:54 0.05 0.0-0.2 (K/uL) Final Immature Granulocytes, Number 04/17/2020 10:54 0.06 0.0-0.2 (K/uL) Final Performing Location [facility] [address] [place] [address]
--- OUTSIDE RECORDS SUMMARY | 2023-05-10 22:31 | External Medical Summary ---
Author Name Unknown Address Unknown Organization R:IT USE ONLY!!! Laboratory Report Ordering Provider Test Date Status BHUMIKA TOMPKINS 04/17/2020 06:11:00 Final Observation Date Value Abnormality Reference (Units ) Status Glucose Point of Care 04/17/2020 06:21 186 Above high normal 70-120 (mg/dL) Final Performing Location IT USE ONLY!!!
--- OUTSIDE RECORDS SUMMARY | 2023-05-10 22:31 | External Medical Summary ---
Author Name Unknown Address Unknown Organization R:IT USE ONLY!!! Laboratory Report Ordering Provider Test Date Status BHUMIKA TOMPKINS 04/18/2020 06:18:00 Final Observation Date Value Abnormality Reference (Units ) Status Glucose Point of Care 04/18/2020 06:26 159 Above high normal 70-120 (mg/dL) Final Performing Location IT USE ONLY!!!
--- OUTSIDE RECORDS SUMMARY | 2023-05-10 22:31 | External Medical Summary ---
Author Name Unknown Address Unknown Organization R:IT USE ONLY!!! Laboratory Report Ordering Provider Test Date Status BHUMIKA TOMPKINS 04/19/2020 11:08:00 Final Observation Date Value Abnormality Reference (Units ) Status Glucose Point of Care 04/19/2020 11:15 262 Above high normal 70-120 (mg/dL) Final Performing Location IT USE ONLY!!!
--- OUTSIDE RECORDS SUMMARY | 2023-05-10 22:31 | External Medical Summary ---
Author Name Unknown Address Unknown Organization R:IT USE ONLY!!! Laboratory Report Ordering Provider Test Date Status BHUMIKA TOMPKINS 04/19/2020 06:49:00 Final Observation Date Value Abnormality Reference (Units ) Status Glucose Point of Care 04/19/2020 07:26 175 Above high normal 70-120 (mg/dL) Final Performing Location IT USE ONLY!!!
--- OUTSIDE RECORDS SUMMARY | 2023-05-10 22:31 | External Medical Summary ---
Author Name Unknown Address [address] [facility] [place] [address] Phone Organization K01:[facility] [address] [facility] [place] [address] Laboratory Report Ordering Provider Test Date Status ALEJANDRO LUCIA 04/17/2020 09:03:00 Final Observation Date Value Abnormality Reference (Units ) Status BUN 04/17/2020 09:54 12 6-20 (mg/dL) Final Creatinine 04/17/2020 09:54 0.7 0.5-1.0 (mg/ dL) Final E Glom Filt Rate 04/17/2020 09:54 >60.0 >60 Final Performing Location [facility] [address] [facility] [place] [address]
--- OUTSIDE RECORDS SUMMARY | 2023-05-10 22:31 | External Medical Summary ---
Author Name Unknown Address Unknown Organization R:IT USE ONLY!!! Laboratory Report Ordering Provider Test Date Status BHUMIKA TOMPKINS 04/15/2020 21:16:00 Final Observation Date Value Abnormality Reference (Units ) Status Glucose Point of Care 04/15/2020 21:37 230 Above high normal 70-120 (mg/dL) Final Performing Location IT USE ONLY!!!
--- OUTSIDE RECORDS SUMMARY | 2023-05-10 22:31 | External Medical Summary ---
Author Name Unknown Address Unknown Organization R:IT USE ONLY!!! Laboratory Report Ordering Provider Test Date Status BHUMIKA TOMPKINS 04/16/2020 17:15:00 Final Observation Date Value Abnormality Reference (Units ) Status Glucose Point of Care 04/16/2020 17:32 179 Above high normal 70-120 (mg/dL) Final Performing Location IT USE ONLY!!!
--- OUTSIDE RECORDS SUMMARY | 2023-05-10 22:31 | External Medical Summary ---
Author Name Unknown Address Unknown Organization R:IT USE ONLY!!! Laboratory Report Ordering Provider Test Date Status BHUMIKA TOMPKINS 04/16/2020 06:18:00 Final Observation Date Value Abnormality Reference (Units ) Status Glucose Point of Care 04/16/2020 06:46 176 Above high normal 70-120 (mg/dL) Final Performing Location IT USE ONLY!!!
--- OUTSIDE RECORDS SUMMARY | 2023-05-10 22:31 | External Medical Summary ---
Author Name Unknown Address Unknown Organization R:IT USE ONLY!!! Laboratory Report Ordering Provider Test Date Status BHUMIKA TOMPKINS 04/18/2020 16:35:00 Final Observation Date Value Abnormality Reference (Units ) Status Glucose Point of Care 04/18/2020 17:37 208 Above high normal 70-120 (mg/dL) Final Performing Location IT USE ONLY!!!
--- OUTSIDE RECORDS SUMMARY | 2023-05-10 22:31 | External Medical Summary ---
Author Name Unknown Address Unknown Organization R:IT USE ONLY!!! Laboratory Report Ordering Provider Test Date Status BHUMIKA TOMPKINS 04/17/2020 11:43:00 Final Observation Date Value Abnormality Reference (Units ) Status Glucose Point of Care 04/20/2020 09:22 171 Above high normal 70-120 (mg/dL) Final Performing Location IT USE ONLY!!!
--- OUTSIDE RECORDS SUMMARY | 2023-05-10 22:31 | External Medical Summary ---
Author Name Unknown Address Unknown Organization R:IT USE ONLY!!! Laboratory Report Ordering Provider Test Date Status BHUMIKA TOMPKINS 04/18/2020 11:31:00 Final Observation Date Value Abnormality Reference (Units ) Status Glucose Point of Care 04/18/2020 11:39 185 Above high normal 70-120 (mg/dL) Final Performing Location IT USE ONLY!!!
--- OUTSIDE RECORDS SUMMARY | 2023-05-10 22:31 | External Medical Summary ---
Author Name Unknown Address [address] [facility] [address] Phone Organization K01:[facility] [address] [facility] [place] [address] Laboratory Report Ordering Provider Test Date Status ALEJANDRO LUCIA 04/16/2020 07:08:00 Final Observation Date Value Abnormality Reference (Units ) Status BUN 04/16/2020 08:05 10 6-20 (mg/dL) Final Creatinine 04/16/2020 08:05 0.7 0.5-1.0 (mg/ dL) Final E Glom Filt Rate 04/16/2020 08:05 >60.0 >60 Final Performing Location [facility] [address] [facility] [place] [address]
--- OUTSIDE RECORDS SUMMARY | 2023-05-10 22:31 | External Medical Summary ---
Author Name Unknown Address Unknown Organization R:IT USE ONLY!!! Laboratory Report Ordering Provider Test Date Status BHUMIKA TOMPKINS 04/16/2020 11:06:00 Final Observation Date Value Abnormality Reference (Units ) Status Glucose Point of Care 04/16/2020 13:18 181 Above high normal 70-120 (mg/dL) Final Performing Location IT USE ONLY!!!
--- OUTSIDE RECORDS SUMMARY | 2023-05-10 22:31 | External Medical Summary ---
Author Name Unknown Address Unknown Organization R:IT USE ONLY!!! Laboratory Report Ordering Provider Test Date Status BHUMIKA TOMPKINS 04/16/2020 21:52:00 Final Observation Date Value Abnormality Reference (Units ) Status Glucose Point of Care 04/16/2020 22:08 213 Above high normal 70-120 (mg/dL) Final Performing Location IT USE ONLY!!!
--- OUTSIDE RECORDS SUMMARY | 2023-05-10 22:31 | External Medical Summary | Summary of Care ---
Author Name Unknown Organization [place] [address] Care Team Providers Care Emt B Name Role Phone Rajwinder Carter DO Primary Care Provider [phone] Encounter Details Date Type Department Care Team Description 04/14/2020 Scan Encounter Unspecified Department <No scans attached> Allergies Active Allergy Reactions Severity Noted Date Comments Penicillins Rash 02/12/2008 documented as of this encounter (statuses as of 04/21/2020) Medications Medication Sig Dispensed Refills Start Date [...] Dosing Unit 5 10/07/2019 Active nystatin (NYSTOP) 793827 UNIT/GM powder Apply topically to affected area [...] mouth daily. 90 Tab 3 02/20/2020 Active tamsulosin (FLOMAX) 0.4 MG Capsule TAKE 1 CAPSULE BY MOUTH ONCE DAILY 30 Cap 0 02/26/2020 Active pantoprazole (PROTONIX) 20 MG TBECIndications:Ga stroesophageal [...] TWICE DAILY 60 Tab 5 03/27/2020 Active cyclobenzaprine (FLEXERIL) 10 MG Tablet TAKE 1 TABLET BY MOUTH EVERY NIGHT AT BEDTIME. 30 Tab 0 03/27/2020 Active linaCLOtide (LINZESS) 145 MCG Capsule [...] days. 16 Tab 0 04/18/2020 0 Active documented as of this encounter (statuses as of 04/21/2020) Active Problems Problem Noted Date Cellulitis of [...] as of this encounter (statuses as of 04/21/2020) Resolved Problems Problem Noted Date Resolved Date Chronic hypoxemic respiratory failure 04/08/2019 04/18/2019 Oxygen dependent 04/08/2019 04/18/2019 [facility] resident 04/08/2019 05/02/2019 Preop examination 02/21/2019 04/04/2019 [...] pain 01/24/2012 01/17/2017 Genetic Sleep Disorder Research Other*[id number] 05/13/2011 04/07/2016 Obstructive sleep apnea 01/18/2011 12/27/19 [...] as of this encounter (statuses as of 04/21/2020) Immunizations Name Administration Dates Next Due HEP [...] PM EDT documented as of this encounter Plan of Treatment Upcoming Encounters Date Type Specialty Care Team Description 04/28/2020 Office Visit Family Medicine Rajwinder Carter, [address] [place] [address] [phone] 04/29/2020 Nutrition Services Gastroenterology Melissa Omalley, SAMANTHA [address] [facility] [address] [facility] [phone] 04/30/2020 Office Visit Wound Care Jefferson Rios MD [address] [place] [address] [phone] 05/04/2020 Office Visit Gastroenterology Inocente Gonzalez CRNP [address] [facility] [place] [address] [phone] 05/06/2020 Office Visit Gynecology Obstetrics Amna Small, MANAV [address] [facility] [place] [phone] 05/28/2020 Office Visit Gastroenterology Lyssa Stout CRNP [address] [facility] [place] [address] [phone] 06/03/2020 Hospital Encounter Surgery Janis Hatch DO [address] [place] [address] [phone] 06/03/2020 Surgery Surgery Janis Hatch DO [address] [place] [address] [phone] COLONOSCOPY FLEXIBLE PROXIMAL DIAGNOSTIC 06/30/2020 Office Visit Hematology Oncology Tono Sanchez MD [address] [facility] [address] [phone] 09/03/2020 Imaging Radiology Health Maintenance Due Date [...] on File Type Date 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
--- OUTSIDE RECORDS SUMMARY | 2023-05-10 22:31 | External Medical Summary ---
Author Name Unknown Address [address] [facility] [place] [address] Phone Organization K01:[facility] [address] [facility] [place] [address] Laboratory Report Ordering Provider Test Date Status BHUMIKA TOMPKINS 04/16/2020 09:23:00 Final Observation Date Value Abnormality Reference (Units ) Status Vancomycin, trough 04/16/2020 10:01 15.8 10-2 0 (ug/mL) Final Tme Last Dose 04/16/2020 09:37 NOT PROVIDED Final Date Last Dose 04/16/2020 09:37 NOT PROVIDED Final Performing Location [facility] [address] [facility] [place] [address]
--- OUTSIDE RECORDS SUMMARY | 2023-05-10 22:31 | External Medical Summary ---
Author Name Unknown Address [address] [facility] [place] [address] Phone Organization K01:[facility] [address] [facility] [place] [address] Laboratory Report Ordering Provider Test Date Status BHUMIKA TOMPKINS 04/19/2020 08:39:00 Final Observation Date Value Abnormality Reference (Units ) Status BUN 04/19/2020 09:54 11 6-20 (mg/dL) Final Creatinine 04/19/2020 09:54 0.7 0.5-1.0 (mg/ dL) Final E Glom Filt Rate 04/19/2020 09:54 >60.0 >60 Final Performing Location [facility] [address] [facility] [place] [address]
--- OUTSIDE RECORDS SUMMARY | 2023-05-10 22:31 | External Medical Summary ---
Author Name Unknown Address Unknown Organization R:IT USE ONLY!!! Laboratory Report Ordering Provider Test Date Status BHUMIKA TOMPKINS 04/18/2020 21:26:00 Final Observation Date Value Abnormality Reference (Units ) Status Glucose Point of Care 04/19/2020 02:05 192 Above high normal 70-120 (mg/dL) Final Performing Location IT USE ONLY!!!
--- OUTSIDE RECORDS SUMMARY | 2023-05-10 22:31 | External Medical Summary ---
Author Name Unknown Address Unknown Organization R:IT USE ONLY!!! Laboratory Report Ordering Provider Test Date Status BHUMIKA TOMPKINS 04/17/2020 16:45:00 Final Observation Date Value Abnormality Reference (Units ) Status Glucose Point of Care 04/20/2020 09:22 141 Above high normal 70-120 (mg/dL) Final Performing Location IT USE ONLY!!!
--- OUTSIDE RECORDS SUMMARY | 2023-05-10 22:31 | External Medical Summary | Summary of Care ---
Author Name Unknown Organization [place] [address] Care Team Providers Care Credentialing Coordinator Name Role Phone JohnbrianRajwinder thacker Primary Care Provider [phone] Reason for Referral * Evaluate & Treat - Unlimited Visits (Within 30 days (routine)) Status Reason Specialty Diagnoses / Procedures Referred By Contact Referred To Contact Pending Review Specialty Services Required Wound Care Diagnoses Open wound of toe, initial encounter DM type 2 with diabetic peripheral neuropathy (HCC) Brianne Pal PA-C [address] [place] [address] Reason for Visit * Reason Comments Hospital Follow-Up Encounter Details Date Type Department Care Team Description 04/10/2020 Office Visit [place] [address] [place] [address] Brianne Pal PA-C [address] [place] [address] [phone] Hematuria, unspecified type*; Open wound of toe, initial encounter; DM type 2 with diabetic peripheral neuropathy (HCC) Allergies Active Allergy Reactions Severity Noted Date Comments Penicillins Rash 02/12/2008 documented as of this encounter (statuses as of 04/16/2020) Medications Medication Sig Dispensed Refills Start Date [...] 5 10/07/2019 Suspended Additional Information nystatin (NYSTOP) 464130 UNIT/GM powder Apply topically to affected area 3 times a day. 60 g 1 10/16/2019 Suspended Additional Information BD PEN NEEDLE MINI U/F 31G X 5 MMIndications:Type 2 diabetes mellitus with hemoglobin A1c goal of less than 7.0% ([facility]) use with basaglar at bedtime 100 Each [...] 90 Tab 3 02/20/2020 Suspended Additional Information tamsulosin (FLOMAX) 0.4 MG Capsule TAKE 1 CAPSULE BY MOUTH ONCE DAILY 30 Cap 0 02/26/2020 Suspended Additional Information pantoprazole (PROTONIX) 20 MG [...] 60 Tab 5 03/27/2020 Suspended Additional Information cyclobenzaprine (FLEXERIL) 10 MG Tablet TAKE 1 TABLET BY MOUTH EVERY NIGHT AT BEDTIME. 30 Tab 0 03/27/2020 Suspended Additional Information linaCLOtide (LINZESS) 145 MCG Capsule Take 1 Cap by mouth daily before breakfast. 90 Cap 3 03/30/2020 Suspended Additional Information Clindamycin HCl 300 MG Capsule 0 04/06/2020 Suspended documented as of this encounter (statuses as of 04/16/2020) Active Problems Problem Noted Date Cellulitis of right lower extremity 01/2020 Iron [...] as of this encounter (statuses as of 04/16/2020) Resolved Problems Problem Noted Date Resolved Date Chronic hypoxemic respiratory failure 04/08/2019 04/18/2019 Oxygen dependent 04/08/2019 04/18/2019 prison resident 04/08/2019 05/02/2019 Preop examination 02/21/2019 04/04/2019 [...] pain 01/24/2012 01/17/2017 Genetic Sleep Disorder Research Other*[id number] 05/13/2011 04/07/2016 Obstructive sleep apnea 01/18/2011 12/27/19 [...] as of this encounter (statuses as of 04/16/2020) Immunizations Name Administration Dates Next Due HEP [...] have Coronavirus / COVID-19? Unable to assess 04/15/2020 2:23 PM EDT documented as of this encounter Last Filed Vital Signs Vital Sign Reading Time Taken Comments Blood Pressure 118/76 04/10/2020 2:40 PM EDT Pulse 66 04/10/2020 2:40 PM EDT Temperature 36.8 C (98.2 F) 04/10/2020 2:40 PM ED T Respiratory Rate 19 04/10/2020 2:40 PM EDT Oxygen Saturation - - Inhaled Oxygen Concentration - - Weight - - Height - - Body Mass Index - - documented in this encounter Progress Notes * Brianne Pal PA-C - 04/10/2020 2:50 PM EDT Subjective: Shaina Bustos is a 64 year old female. Chief Complaint Patient presents with Hospital Follow-Up HPI: Here for er f/u. Had her toenail removed on April 03. She had some pus that started being produced by the wound so she went to the er. She was started on clindamycin. She is taking bid. Cleaning with peroxide. No fever or chills. Is quite painful. Has had some urinary issues too. Dark stinky urine and some blood. No fever or chills. She thinks this is urianry but is not sure if it could be vaginal was bright red but then tapered to brown. Not flowing. No abd or pelvic pain. PHM: Patient Active Problem List Diagnosis Code Edema R60.9 Venous insufficiency I87.2 Spinal stenosis of lumbar region without neurogenic claudication M48.061 Cerebral palsy ([facility]) G80.9 HTN, goal below 140/90 I10 Chronic rhinitis J31.0 NG (nonalcoholic steatohepatitis) K75.81 Venous stasis dermatitis of both lower extremities I87.2 DDD (degenerative disc disease), lumbar M51.36 Intermittent asthma with reliever use up to twice per week J45.20 Primary osteoarthritis of right knee M17.11 Lymphedema I89.0 Type 2 diabetes mellitus with hemoglobin A1c goal of less than 7.0% ([facility]) E11.9 Vitamin D deficiency E55.9 Restrictive lung disease J98.4 Obesity, morbid (more than 100 lbs over ideal weight or BMI > 40) ([facility]) E66.01 Dyslipidemia, goal LDL below 70 E78.5 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 R39.81 Acquired hypothyroidism E03.9 Chronic pain syndrome G89.4 MEDICATION USE AGREEMENT RC4428 History of Clostridium difficile colitis Z86.19 Cirrhosis of liver ([facility]) K74.60 THAD on CPAP G47.33, Z99.89 Wheelchair dependent Z99.3 History of recent fall Z91.81 Pancytopenia ([facility]) D61.818 Ambulatory dysfunction R26.2 Fall W19.XXXA Sprain of right ankle S93.401A DM type 2 with diabetic peripheral neuropathy ([facility]) E11.42 Insomnia G47.00 Recurrent major depressive disorder, in partial remission ([facility]) F33.41 Impaired mobility and ADLs Z74.09 Generalized [...] to chronic blood loss D50.0 Splenomegaly R16.1 Current Outpatient Medications Medication Sig Dispense Refill Clindamycin HCl 300 MG Capsule linaCLOtide (LINZESS) 145 MCG Capsule Take 1 Cap by mouth daily before breakfast. 90 Cap 3 cyclobenzaprine (FLEXERIL) 10 MG Tablet TAKE 1 TABLET BY MOUTH EVERY NIGHT AT BEDTIME. 30 Tab 0 oxybutynin (DITROPAN) 5 MG Tablet TAKE 1 TABLET BY MOUTH TWICE DAILY 60 Tab 5 insulin glargine (LANTUS SOLOSTAR) 100 UNIT/ML SOPN inject 24 units under the skin at bedtime 15 mL 5 pantoprazole (PROTONIX) 20 MG TBEC TAKE 2 TABLETS BY MOUTH ONCE DAILY 180 Tab 1 tamsulosin (FLOMAX) 0.4 MG Capsule TAKE 1 CAPSULE BY MOUTH ONCE DAILY 30 Cap 0 levothyroxine (LEVOXYL) 200 MCG Tablet Take 1 [...] at bedtime 100 Each 10 nystatin (NYSTOP) 128230 UNIT/GM powder Apply topically to affected area [...] TABS 1 tab daily 1 Tab 0 Review of patient's allergies indicates: Allergen Reactions Pcn [Penicillins] Rash Objective: BP 118/76 | Pulse 66 | Temp (Src) 98.2 (Tympanic) | Resp 19 General: alert, healthy and no distress Head: Normocephalic, No masses, lesions, tenderness or abnormalities Heart: regular rate & rhythm, no murmurs, no gallops, S-1 normal and S-2 normal Lungs: chest symmetric with normal AP diameter, no chest deformities noted, no chest wall tenderness, lungs clear to auscultation Abdomen: abdomen soft, non-tender, obese, normal bowel sounds and no masses or organomegaly Skin: skin color, texture, turgor are normal, no rashes or significant lesions, R great toe - nail is gone and there is eschar formation on the dorsum of the entire toe Pelvic: pt defers ASSESSMENT/PLAN: Hematuria, unspecified type (Primary) - SITE DIP AUTO(46004) - URINE W/ MICROSCOPIC - CULTURE QUANT URINE Open wound of toe, initial encounter - WOUND CARE REFERRAL OP - CULTURE, WOUND, SUPERFICIAL, AEROBIC DM type 2 with diabetic peripheral neuropathy (HCC) - WOUND CARE REFERRAL OP - CULTURE, WOUND, SUPERFICIAL, AEROBIC Wound culture as this was not done.at the er Rev er note Check urine today May need pelvic exam - she defers this today as it takes a candace lift to get her onto a table and she does not want to have assistance from us to do so - she wants to do pelvic at the er if it needs done Needs wound care appt for her toe Brianne Pal PA-C 04/10/2020 3:10 PM documented in this encounter Nursing Notes * Keyonna Barillas LPN - 04/10/2020 2:42 PM EDT On ABT. Here for R Toe. documented in this encounter Miscellaneous Notes * Result QuickNote - Brianne Pal PA-C - 04/11/2020 3:30 PM EDT On abx Brianne Pal PA-C documented in this encounter Plan of Treatment Upcoming Encounters Date Type Specialty Care Team Description 04/28/2020 Office Visit Family Medicine [facility] [address] [facility] [address] 04/29/2020 Nutrition Services Gastroenterology Melissa Omalley RDN [address] [place] [address] [place] [phone] 05/04/2020 Office Visit Gastroenterology Inocente Gonzalez CRNP [address] [facility] [place] [address] 05/06/2020 Office Visit Gynecology Obstetrics Aman Small, CNM [address] [place] [phone] 05/28/2020 Office Visit Gastroenterology Lyssa Stout CRNP [address] [facility] [place], [place] [address] [phone] 06/03/2020 Hospital Encounter Surgery Janis Hatch, DO [address] [place] [address] [phone] 06/03/2020 Surgery Surgery Janis Hatch, DO [address] [place] [address] [phone] COLONOSCOPY FLEXIBLE PROXIMAL DIAGNOSTIC 06/30/2020 Office Visit Hematology Oncology Tono Sanchez MD [address] [facility], [place] [phone] 09/03/2020 Imaging Radiology Scheduled Referrals Name Type Priority Associated Diagnoses Orde r Schedule WOUND CARE REFERRAL OP Referral Within 30 days (routine) Open wound of toe, initial encounter DM type 2 with diabetic peripheral neuropathy (HCC) Ordered: 04/10/2020 Health Maintenance Due Date Last Done Comments [...] Procedure Name Priority Date/Time Associated Diagnosis Comments CULTURE, WOUND, SUPERFICIAL, AEROBIC Routine 04/10/2020 3:31 PM EDT Open wound of toe, initial encounter DM type 2 with diabetic peripheral neuropathy (HCC) URINE W/ MICROSCOPIC Routine 04/10/2020 3:31 PM EDT Hematuria, unspecified type CULTURE QUANT URINE Routine 04/10/2020 3 :30 PM EDT Hematuria, unspecified type documented in this encounter Results * CULTURE, WOUND, SUPERFICIAL, AEROBIC (04/10/2020 3:31 PM EDT) SPECIMEN DESCRIPTION SUPERFICIAL WOUND R GREAT TOE [facility] CULTURE MULTIPLE SPECIES OF AEROBIC BACTERIA NO FURTHER WORKUP ROUTINELY PERFORMED [facility] REPORT STATUS 04/13/2020 FINAL [facility] Specimen Performing Organization Address City/State/Zipcod e Phone Number [facility] [address] [place] [address] * URINE W/ MICROSCOPIC (04/10/2020 3:31 PM EDT) COLOR, UA YELLOW YEL [facility] CLARITY, UA CLOUDY(A) CLEAR [facility] GLUCOSE, UA 1,000(A) NEG mg/dL [facility] BILIRUBIN, UA NEGATIVE NEG [facility] KETONE, UA TRACE(A) NEG mg/dL [facility] SPECIFIC GRAVITY 1.026 1.003 - 1.030 [facility] BLOOD, UA LARGE(A) NEG [facility] PH, UA 6.5 5.0 - 7.5 units [facility] PROTEIN, UA 100(A) NEG mg/dL [facility] UROBILINOGEN, UA NORMAL NORM mg/dL [facility] NITRITE, UA POSITIVE(A) NEG [facility] ESTERASE, UA MODERATE(A) NEG [facility] BACTERIA, UA 0-25 TEN417 /HPF [facility] WBC, UA 50+(A) U02 /HPF [facility] RBC, UA 50+(A) U02 /HPF [facility] BUDDING YEAST,UA PRESENT(A) NONE /HPF [facility] SQ EPITH CELLS,UA MANY(A) NONE /HPF [facility] HYALINE CAST,UA 30-49(A) UM1 /LPF [facility] Specimen Performing Organization Address City[facility] Phone Number [facility] [address] [place] [address] * CULTURE QUANT URINE (04/10/2020 3:30 PM EDT) SPECIMEN DESCRIPTION CLEAN CATCH URINE [facility] CULTURE MULTIPLE MAYRA SUGGESTS CONTAMINATION OR COLONIZATION [facility] REPORT STATUS 04/11/2020 FINAL [facility] Specimen Performing Organization Address [facility] Phone Number [facility] [address] [place] [address] documented in this encounter Visit Diagnoses Diagnosis Hematuria, unspecified type- Primary Open wound of toe, initial encounter DM type 2 with diabetic peripheral neuropathy (HCC) Type II or unspecified type diabetes mellitus with neurological manifestations, not stated as uncontrolled documented in this encounter Advance Directives Documents on File Type Date Recorded Patient 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 is the patient's healthcare proxy. Discussion of Advance Directives occurred with: Patient Does the patient have a Living Will? No Does the patient have Health Care Power of Attor elsie? No"
--- OUTSIDE RECORDS SUMMARY | 2023-05-10 22:31 | External Medical Summary ---
Author Name Unknown Address [address] [facility] [place] [address] Phone Organization K01:[facility] [address] [facility] [place] [address] Laboratory Report Ordering Provider Test Date Status ALEJANDRO LUCIA 04/16/2020 07:08:00 Final Observation Date Value Abnormality Reference (Units ) Status WBC, Total 04/16/2020 07:47 2.60 Below low normal 4.00-10.80 (K/uL) Final RBC 04/16/2020 07:47 3.07 Below low normal 3.85-5.15 (M/uL) Final Hemoglobin 04/16/2020 07:47 10.0 Below low normal 12.0-15.3 (g/dL) Final HCT 04/16/2020 07:47 33.3 Below low normal 36.0-45.2 (%) Final MCV 04/16/2020 07:47 108.5 Above high normal 81.5-97.5 (fL) Final MCH 04/16/2020 07:47 32.6 27.0-34.0 (pg) Final MCHC 04/16/2020 07:47 30.0 Below low normal 32.0-36.0 (g/dL) Final RDW 04/16/2020 07:47 15.1 11.5-15.5 (%) Final Platelets 04/16/2020 07:47 85 Below low normal 140-400 (K/uL) Final MPV 04/16/2020 07:47 12.8 Above high normal 6.6-11.1 (fL) Final nRBC/100 WBC Bld Auto-Rto 04/16/2020 07:47 0 0 (/100 WBCs) Final Segs 04/16/2020 07:47 51.9 40-75 (%) Final Lymphs % 04/16/2020 07:47 29.2 18-42 (%) Final Monos 04/16/2020 07:47 9.6 1-11 (%) Final Eosinophils 04/16/2020 07:47 7.3 Above high normal 0-6 (%) Final Basos 04/16/2020 07:47 1.2 0-2 (%) Final Immature Granulocyte, Percent 04/16/2020 07:47 0.8 0-2 (%) Final Neutrophils Bld 04/16/2020 07:47 1.35 Below low normal 1.8-7.7 (K/uL) Final Lymphs, absolute 04/16/2020 07:47 0.76 Below low normal 1.0-4.8 (K/uL) Final Monos, Abs 04/16/2020 07:47 0.25 0.0-1.1 (K/uL) Final Eos, Abs 04/16/2020 07:47 0.19 0.0-0.7 (K/uL) Final Basos, Abs 04/16/2020 07:47 0.03 0.0-0.2 (K/uL) Final Immature Granulocytes, Number 04/16/2020 07:47 0.02 0.0-0.2 (K/uL) Final Performing Location [facility] [address] [facility] [address]
--- OUTSIDE RECORDS SUMMARY | 2023-05-10 22:31 | External Medical Summary ---
Author Name Unknown Address Unknown Organization R:IT USE ONLY!!! Laboratory Report Ordering Provider Test Date Status BHUMIKA TOMPKINS 04/17/2020 22:12:00 Final Observation Date Value Abnormality Reference (Units ) Status Glucose Point of Care 04/17/2020 22:16 164 Above high normal 70-120 (mg/dL) Final Performing Location IT USE ONLY!!!
--- OUTSIDE RECORDS SUMMARY | 2023-05-10 22:32 | External Medical Summary ---
Author Name Unknown Address Unknown Organization R:IT USE ONLY!!! Laboratory Report Ordering Provider Test Date Status JAZMINE HARP 04/14/2020 22:05:00 Final Observation Date Value Abnormality Reference (Units ) Status Glucose Point of Care 04/14/2020 22:08 299 Above high normal 70-120 (mg/dL) Final Performing Location IT USE ONLY!!!
--- OUTSIDE RECORDS SUMMARY | 2023-05-10 22:32 | External Medical Summary ---
Author Name Unknown Address Unknown Organization R:IT USE ONLY!!! Laboratory Report Ordering Provider Test Date Status BHUMIKA TOMPKINS 04/15/2020 10:56:00 Final Observation Date Value Abnormality Reference (Units ) Status Glucose Point of Care 04/15/2020 23:11 276 Above high normal 70-120 (mg/dL) Final Performing Location IT USE ONLY!!!
--- OUTSIDE RECORDS SUMMARY | 2023-05-10 22:32 | External Medical Summary ---
Author Name Unknown Address Unknown Organization R:IT USE ONLY!!! Laboratory Report Ordering Provider Test Date Status BHUMIKA TOMPKINS 04/15/2020 06:41:00 Final Observation Date Value Abnormality Reference (Units ) Status Glucose Point of Care 04/15/2020 06:49 235 Above high normal 70-120 (mg/dL) Final Performing Location IT USE ONLY!!!
--- OUTSIDE RECORDS SUMMARY | 2023-05-10 22:32 | External Medical Summary ---
Author Name Unknown Address Unknown Organization R:IT USE ONLY!!! Laboratory Report Ordering Provider Test Date Status JAZMINE HARP 04/15/2020 00:16:00 Final Observation Date Value Abnormality Reference (Units ) Status Glucose Point of Care 04/15/2020 00:19 245 Above high normal 70-120 (mg/dL) Final Performing Location IT USE ONLY!!!
--- OUTSIDE RECORDS SUMMARY | 2023-05-10 22:32 | External Medical Summary | Summary of Care ---
Author Name Unknown Organization [facility] Address [place] [address] Care Team Providers Care Chaplaincy Name Role Phone Rajwinder Carter DO Primary Care Provider [phone] Reason for Visit * Reason Comments Advice Encounter Details Date Type Department Care Team Description 04/13/2020 Telephone [facility] [address] [place] [address] Rajwinder Carter DO [address] [place] [address] Advice Allergies Active Allergy Reactions Severity Noted Date Comments Penicillins Rash 02/12/2008 documented as of this encounter (statuses as of 04/14/2020) Medications Medication Sig Dispensed Refills Start Date [...] Dosing Unit 5 10/07/2019 Active nystatin (NYSTOP) 468885 UNIT/GM powder Apply topically to affected area [...] ([facility]) inject 24 units under the skin at bedtime 15 mL 5 03/25/2020 Active oxybutynin (DITROPAN) 5 MG Tablet TAKE 1 TABLET BY MOUTH TWICE DAILY 60 Tab 5 03/27/2020 Active cyclobenzaprine (FLEXERIL) 10 MG Tablet TAKE 1 TABLET BY MOUTH EVERY NIGHT AT BEDTIME. 30 Tab 0 03/27/2020 Active linaCLOtide (LINZESS) 145 MCG Capsule Take 1 Cap by mouth daily before breakfast. 90 Cap 3 03/30/2020 Active Clindamycin HCl 300 MG Capsule 0 04/06/2020 Active cephalexin (KEFLEX) 500 MG CapsuleIndications :Cellulitis of toe of right foot Take 1 Cap by mouth 3 times a day for 10 days. 30 Cap 0 04/11/2020 04/21/2020 Active sulfamethoxazole-t rimethoprim DS (BACTRIM DS) 800-160 MG per tabletIndications: Urinary tract infection with hematuria, site unspecified Take 1 Tab by mouth 2 times a day for 10 days. Until gone. 20 Tab 0 04/11/2020 04/21/2020 Active documented as of this encounter (statuses as of 04/14/2020) Active Problems Problem Noted Date Iron deficiency anemia due to chronic bl [...] as of this encounter (statuses as of 04/14/2020) Resolved Problems Problem Noted Date Resolved Date Chronic hypoxemic respiratory failure 04/08/2019 04/18/2019 Oxygen dependent 04/08/2019 04/18/2019 [facility] resident 04/08/2019 05/02/2019 Preop examination 02/21/2019 04/04/2019 [...] pain 01/24/2012 01/17/2017 Genetic Sleep Disorder Research Other*[id number] 05/13/2011 04/07/2016 Obstructive sleep apnea 01/18/2011 12/27/19 [...] as of this encounter (statuses as of 04/14/2020) Immunizations Name Administration Dates Next Due HEP [...] have Coronavirus / COVID-19? No / Unsure 04/10/2020 10:10 AM EDT documented as of this encounter Miscellaneous Notes * Telephone Encounter - Michaelle Lindquist LPN - 04/14/2020 12:07 PM EDT The patient, and sister in law is aware, and verbalizes an understanding. Husbands states pt urine is starting to be yellow again. * Telephone Encounter - Brianne Pal PA-C - 04/14/2020 9:17 AM EDT i'm confused - they were contacted this weekend on the She should be taking bactrim and keflex. If she is having continued hematuria on that, she needs pavel seen for a cathed urine either here or the ER. Her culture came back contaminated so there is noway to know what to switch her antibiotic to. Brianne Pal PA-C 04/14/2020 9:23 AM * Telephone Encounter - Preethi Colón LPN - 04/13/2020 2:12 PM EDT Attempted to call pt. Could not leave message. Please try again later * Telephone Encounter - Rajwinder Carter DO - 04/13/2020 1:50 PM EDT 1. If it is that significant that the caregiver feels she needs to go to the ED then that should bedone. 2. We would need a urine sample anyway. 3. Could call her urologist as well for their opinion. * Telephone Encounter - Tamara Bojorquez RN - 04/13/2020 10:47 AM EDT Pt's caregiver called, Mary She states that they have not heard back from her pcp's office. Shestarted with blood in her urine on Monday and notes it to be a large amount. They are certain it isin the urine and not vaginal. She is now having severe cramping and pain. Mary feels the pt needs to go to the ER but the pt's does not think that because he feels it is just a UTI and meds will help this. She can be reached at [phone] * Telephone Encounter - Dinorah Lowry LPN - 04/13/2020 9:44 AM EDT Spoke with patient. Still has hematuria. No blood in her underwear between urinating so she doesn't believe it's vaginal. Her abdomen is starting to hurt. Occasional chill, no fever. Please advise. Also, Wound care called patient, she is going to be seen tomorrow at 140pm for her foot. * Telephone Encounter - Alberta Shaw OSA - 04/13/2020 9:41 AM EDT Reason for patient's call: requesting to speak to nurse Caller was transferred to Dinorah at the nurse line. documented in this encounter Plan of Treatment Upcoming Encounters Date Type Specialty Care Team Description 04/28/2020 Office Visit Family Medicine Rajwinder Carter, DO [address] [facility], [place] [address] [phone] 04/29/2020 Nutrition Services Gastroenterology Melissa Omalley, RDN [address] [place] [address] [place] [address] [phone] 05/04/2020 Office Visit Gastroenterology Inocente Gonzalez CRNP [address] [facility] [place] [address] [phone] 05/06/2020 Office Visit Gynecology Obstetrics Aman Small, CNM [address] [facility] [place] [id number] 05/28/2020 Office Visit Gastroenterology Lyssa Stout CRNP [address] [facility] [place] [address] [phone] 06/03/2020 Hospital Encounter Surgery Janis Hatch, DO [address] [place] [address] [phone] 06/03/2020 Surgery Surgery Janis [place], DO [address] [facility] [place] [address] [phone] COLONOSCOPY FLEXIBLE PROXIMAL DIAGNOSTIC 06/30/2020 Office Visit Hematology Oncology Tono Sanchez MD [address] [facility] [place] 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
--- OUTSIDE RECORDS SUMMARY | 2023-05-10 22:32 | External Medical Summary ---
Author Name Unknown Address [address] [facility] [place] [address] Phone Organization K01:[facility] [address] [facility] [address] Laboratory Report Ordering Provider Test Date Status FISH FAN 04/14/2020 17:53:00 Final Observation Date Value Abnormality Reference (Units ) Status WBC, Total 04/14/2020 18:53 3.44 Below low normal 4.00-10.80 (K/uL) Final RBC 04/14/2020 18:53 3.42 Below low normal 3.85-5.15 (M/uL) Final Hemoglobin 04/14/2020 18:53 11.4 Below low normal 12.0-15.3 (g/dL) Final HCT 04/14/2020 18:53 37.5 36.0-45.2 (%) Final MCV 04/14/2020 18:53 109.6 Above high normal 81.5-97.5 (fL) Final MCH 04/14/2020 18:53 33.3 27.0-34.0 (pg) Final MCHC 04/14/2020 18:53 30.4 Below low normal 32.0-36.0 (g/dL) Final RDW 04/14/2020 18:53 15.2 11.5-15.5 (%) Final Platelets 04/14/2020 18:53 98 Below low normal 140-400 (K/uL) Final MPV 04/14/2020 18:53 13.5 Above high normal 6.6-11.1 (fL) Final nRBC/100 WBC Bld Auto-Rto 04/14/2020 18:53 0 0 (/100 WBCs) Final Segs 04/14/2020 18:56 59.2 40-75 (%) Final Lymphs % 04/14/2020 18:56 26.2 18-42 (%) Final Monos 04/14/2020 18:56 7.0 1-11 (%) Final Eosinophils 04/14/2020 18:56 6.4 Above high normal 0-6 (%) Final Basos 04/14/2020 18:56 0.9 0-2 (%) Final Immature Granulocyte, Percent 04/14/2020 18:56 0.3 0-2 (%) Final Neutrophils Bld 04/14/2020 18:56 2.04 1.8-7.7 (K/uL) Final Lymphs, absolute 04/14/2020 18:56 0.90 Below low normal 1.0-4.8 (K/uL) Final Monos, Abs 04/14/2020 18:56 0.24 0.0-1.1 (K/uL) Final Eos, Abs 04/14/2020 18:56 0.22 0.0-0.7 (K/uL) Final Basos, Abs 04/14/2020 18:56 0.03 0.0-0.2 (K/uL) Final Immature Granulocytes, Number 04/14/2020 18:56 0.01 0.0-0.2 (K/uL) Final Anisocytosis Bld Ql Smear 04/14/2020 18:56 SLIGHT Final Macrocytes Bld Ql Smear 04/14/2020 18:56 PRESENT Final Dacryocytes Bld Ql Smear 04/14/2020 18:56 FEW Final Performing Location [facility] [address] [place] [address] [address]
--- OUTSIDE RECORDS SUMMARY | 2023-05-10 22:32 | External Medical Summary ---
Author Name Unknown Address [facility] [address] [place] [id number] Phone Organization K01:[place] [address] [place] [id number] Laboratory Report Ordering Provider Test Date Status LAZ CRAWLEY 04/15/2020 06:17:00 Final Observation Date Value Abnormality Reference (Units ) Status WBC, Total 04/15/2020 06:50 2.78 Below low normal 4.00-10.80 (K/uL) Final RBC 04/15/2020 06:50 2.99 Below low normal 3.85-5.15 (M/uL) Final Hemoglobin 04/15/2020 06:50 10.1 Below low normal 12.0-15.3 (g/dL) Final HCT 04/15/2020 06:50 32.5 Below low normal 36.0-45.2 (%) Final MCV 04/15/2020 06:50 108.7 Above high normal 81.5-97.5 (fL) Final MCH 04/15/2020 06:50 33.8 27.0-34.0 (pg) Final MCHC 04/15/2020 06:50 31.1 Below low normal 32.0-36.0 (g/dL) Final RDW 04/15/2020 06:50 15.1 11.5-15.5 (%) Final Platelets 04/15/2020 06:50 86 Below low normal 140-400 (K/uL) Final MPV 04/15/2020 06:50 13.0 Above high normal 6.6-11.1 (fL) Final nRBC/100 WBC Bld Auto-Rto 04/15/2020 06:50 0 0 (/100 WBCs) Final Performing Location [place] [address] [address] [facility] [address]
--- OUTSIDE RECORDS SUMMARY | 2023-05-10 22:32 | External Medical Summary | Summary of Care ---
Author Name Unknown Organization [facility] Address [place] [address] Care Team Providers Care Account Management Specialist Name Role Phone Rajwinder Carter Primary Care Provider [phone] Reason for Visit * Reason Comments Advice Encounter Details Date Type Department Care Team Description 04/13/2020 Telephone [facility] [address] [place] [address] Brianne Pal PA-C [address] [place] [address] Advice Allergies Active Allergy Reactions [...] Dosing Unit 5 10/07/2019 Active nystatin (NYSTOP) 678332 UNIT/GM powder Apply topically to affected area [...] pain 01/24/2012 01/17/2017 Genetic Sleep Disorder Research Other*[id number] 05/13/2011 04/07/2016 Obstructive sleep apnea 01/18/2011 12/27/19 [...] Telephone Encounter - Talita Caballero OSA - 04/14/2020 1:50 PM EDT Not able to switch providers. Unable to LMOM VM full 04/14 rmg * Telephone Encounter - Josselin Gaspar LPN - 04/14/2020 9:36 AM EDT Front office-patient would like to change her appointment on 04/[address] Carter to an appointment with shanta Bermudez. Please call her to assist in changing. Spoke to patient-she is aware. She has an appointment at the wound clinic today at 1:40. She will cancel the podiatry appointment. * Telephone Encounter - Brianne Pal PA-C - 04/14/2020 9:23 AM EDT I would only cancel podiatry if she has heard from and been to a wound care appt before that Brianne Pal PA-C * Telephone Encounter - Preethi Colón LPN - 04/13/2020 9:21 AM EDT Please advise * Telephone Encounter - Marie Magallanes OSA - 04/13/2020 9:10 AM EDT Pt calling in to find out if she should go to her Podiatry appt on 04/16. She states she scheduled anappt with them & wasn't sure if she should go to that or wait for Wound Care to call her for anappt. Please advise pt. documented in this encounter Plan of Treatment Upcoming Encounters Date Type Specialty Care Team Description 04/28/2020 Office Visit Family Medicine Rajwinder Carter DO [address] [facility] [place] [id number] [phone] 04/29/2020 Nutrition Services Gastroenterology Melissa Omalley, [place] [address] [address] [place] [address] 05/04/2020 Office Visit Gastroenterology Inocente Gonzalez CRNP [address] [place] [address] 05/06/2020 Office Visit Gynecology Obstetrics Aman Small, BOO [address] [facility] [place] [address] 05/28/2020 Office Visit Gastroenterology Lyssa Stout CRNP [address] [place] [address] 06/03/2020 Hospital Encounter Surgery Janis Hatch, [address] [place] [address] 06/03/2020 Surgery Surgery Janis Hatch, [address] [facility] [place] [address] [phone] COLONOSCOPY FLEXIBLE PROXIMAL DIAGNOSTIC 06/30/2020 Office Visit Hematology Oncology Tono Sanchez MD [address] [facility], [place] [address] [phone] 09/03/2020 Imaging Radiology Health Maintenance Due Date [...] Additional history exists Yearly B-12 02/20/2021 02/21/2020, 03/0 10/2019, 12/24/2018, Additional history exists DTaP,Tdap,and Td [...] Documents on File Type Date Recorded Patient Ruffler 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
--- OUTSIDE RECORDS SUMMARY | 2023-05-10 22:32 | External Medical Summary ---
Author Name Unknown Address [facility] [address] [facility] [place] [address] Phone Organization K01:[place] [address] [place] [id number] Laboratory Report Ordering Provider Test Date Status LAZ CRAWLEY 04/15/2020 06:17:00 Final Observation Date Value Abnormality Reference (Units ) Status PT 04/15/2020 07:04 14.9 Above high normal 11.5- 14.6 (seconds) Final INR 04/15/2020 07:04 1.16 Above high normal 0.84- 1.14 Final Performing Location [address] [address]
--- OUTSIDE RECORDS SUMMARY | 2023-05-10 22:32 | External Medical Summary | Summary of Care ---
Author Name Unknown Organization [facility] Address [place] [address] Care Team Providers Care Airplane Gas Tank Liner Assembler Name Role Phone Rajwinder Carter Primary Care Provider [phone] Reason for Visit * Reason Comments Advice Encounter Details Date Type Department Care Team Description 04/13/2020 Telephone [facility] [address] [place] [address] Brianne Pal PA-C [address] [place] [address] Advice Allergies Active Allergy Reactions [...] Dosing Unit 5 10/07/2019 Active nystatin (NYSTOP) 592261 UNIT/GM powder Apply topically to affected area [...] 04/08/2019 04/18/2019 group home resident 04/08/2019 05/02/2019 Preop examination 02/21/2019 [...] pain 01/24/2012 01/17/2017 Genetic Sleep Disorder Research Other*[id number] 05/13/2011 04/07/2016 Obstructive sleep apnea 01/18/2011 12/27/19 [...] Telephone Encounter - Christopher Garcia OSA - 04/14/2020 3:22 PM EDT Pt states she's going to the ER in [place]. They might have to take her big toe. She has an appt with wound care on 04/20. Other than that she doesn't know anything. If you need to get a hold of her you can call her cell phone. Thanks. * Telephone Encounter - Talita Caballero OSA - 04/14/2020 1:50 PM EDT Not able to switch providers. Unable to LMOM VM full 04/14 rmg * Telephone Encounter - Josselin Gaspar LPN - 04/14/2020 9:36 AM EDT Front office-patient would like to change her appointment on 04/[address] Carter to an appointment with Brianne Pal, shanta. Please call her to assist in changing. [...] Visit Family Medicine Rajwinder Carter DO [address] [facility] [place] [id number] 04/29/2020 Nutrition Services Gastroenterology Melissa Omalley RDN [address] [facility] [address] [place] [address] 05/04/2020 Office Visit Gastroenterology Inocente Gonzalez CRNP [address] [facility] [place] [address] [phone] 05/06/2020 Office Visit Gynecology Obstetrics Aman Small, BOOM [address] [facility] [place] [address] 05/28/2020 Office Visit Gastroenterology Lyssa Stout CRNP [address] [place], [place] [address] [phone] 06/03/2020 Hospital Encounter Surgery Janis [place]atch, DO [address] [place] [address] [phone] 06/03/2020 Surgery Surgery Janis [place], DO [address] [place], [place] [address] [phone] COLONOSCOPY FLEXIBLE PROXIMAL DIAGNOSTIC 06/30/2020 Office Visit Hematology Oncology Tono Sanchez MD [address] [place] [address], [place] [id number] 09/03/2020 Imaging Radiology Health Maintenance Due Date [...] Documents on File Type Date Recorded Patient Buffer Chrome 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
--- OUTSIDE RECORDS SUMMARY | 2023-05-10 22:32 | External Medical Summary ---
Author Name Unknown Address [facility] [place] [address] Phone Organization K01:[place] [address] Laboratory Report Ordering Provider Test Date Status FISH FAN 04/14/2020 17:53:00 Final Observation Date Value Abnormality Reference (Units ) Status CRP, low-sensitivity 04/14/2020 18:42 28 Above high normal 0-5 (mg/L) Final Performing Location [place] [id number]
--- OUTSIDE RECORDS SUMMARY | 2023-05-10 22:32 | External Medical Summary | Summary of Care ---
Author Name Unknown Organization [place] [address] Care Team Providers Care Mule Spinner Name Role Phone JohnbrianRajwinder thacker Primary Care Provider Encounter Details Date Type Department Care Team Description 04/11/2020 Telephone [facility] [address] [facility] [place] [address] Brianne Pal PA-C [address] [place] [address] Allergies Active Allergy Reactions Severity Noted Date Comments Penicillins Rash 02/12/2008 documented as of this encounter (statuses as of 04/11/2020) Medications Medication Sig Dispensed Refills Start Date [...] Dosing Unit 5 10/07/2019 Active nystatin (NYSTOP) 022384 UNIT/GM powder Apply topically to affected area 3 times a day. 60 g 1 10/16/2019 Active BD PEN NEEDLE MINI U/F 31G X 5 MMIndications:Type 2 diabetes mellitus with hemoglobin A1c goal of less than 7.0% ([facility]) use with basaglar at bedtime [...] as of this encounter (statuses as of 04/11/2020) Active Problems Problem Noted Date Iron deficiency [...] as of this encounter (statuses as of 04/11/2020) Resolved Problems Problem Noted Date Resolved Date [...] pain 01/24/2012 01/17/2017 Genetic Sleep Disorder Research Other*[id number] 05/13/2011 04/07/2016 Obstructive sleep apnea 01/18/2011 12/27/19 [...] as of this encounter (statuses as of 04/11/2020) Immunizations Name Administration Dates Next Due HEP [...] Telephone Encounter - Brianne Pal PA-C - 04/11/2020 10:52 AM EDT noted Brianne Pal PA-C 04/11/2020 10:52 AM * Telephone Encounter - Kiesha Schmitt LPN - 04/11/2020 9:15 AM EDT Made pt aware and they expressed understanding. Pt states they are to call her Monday to schedule for wound care * Telephone Encounter - Brianne Pal PA-C - 04/11/2020 8:08 AM EDT Please let her know - urine is appearing infected. There is no culture yet but I think since she had hematuria, we should try treating her., This means we can hold on the pelvic exam for now. Sending over antibiotic - would like her to stop the clinda and we are going to switch her to keflex and bactrim together. A probiotic would not be a bad idea Did she get scheduled for wound care? If so, when is she going? Urinary tract infection with hematuria, site unspecified (Primary) - sulfamethoxazole-trimethoprim DS (BACTRIM DS) 800-160 MG per tablet; Take 1 Tab by mouth 2 times a day for 10 days. Until gone. Cellulitis of toe of right foot - cephalexin (KEFLEX) 500 MG Capsule; Take 1 Cap by mouth 3 times a day for 10 days. (Case was rev with Dr Chan) Brianne Pal PA-C 04/11/2020 8:38 AM documented in this encounter Plan of Treatment Upcoming Encounters Date Type Specialty Care Team Description 04/28/2020 Office Visit Family Medicine Rajwinder Carter, [address] [facility] [place] [address] 04/29/2020 Nutrition Services Gastroenterology Melissa Omalley, RDN [address] [facility] [address] [place] [address] 05/04/2020 Office Visit Gastroenterology Inocente Gonzalez CRNP 132 [facility] [place] [address] 05/06/2020 Office Visit Gynecology Obstetrics Aman Small, CN [facility] [address] 05/28/2020 Office Visit Gastroenterology Lyssa Stout CRNP [address] [facility] [place] [address] 06/03/2020 Hospital Encounter Surgery Janis [place], [address] [place] [address] 06/03/2020 Surgery Surgery Janis [place], [address] [place] [address] COLONOSCOPY FLEXIBLE PROXIMAL DIAGNOSTIC 06/30/2020 Office Visit Hematology Oncology Tono Sanchez MD [address] [facility], [facility] [phone] 09/03/2020 Imaging Radiology Health Maintenance Due Date [...] encounter Visit Diagnoses Diagnosis Urinary tract infection with hematuria, site unspecified- Primary Cellulitis of toe of right foot Cellulitis and abscess of toe, unspecified documented in this encounter Advance Directives Documents on File Type Date Recorded Patient Staff Respiratory Therapist 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
--- OUTSIDE RECORDS SUMMARY | 2023-05-10 22:32 | External Medical Summary ---
Author Name Unknown Address [address] [facility] [place] [address] Phone Organization K01:[facility] [address] [facility] [place] [address] Laboratory Report Ordering Provider Test Date Status FISH FAN 04/14/2020 17:53:00 Final Observation Date Value Abnormality Reference (Units ) Status BUN 04/14/2020 18:42 9 6-20 (mg/dL) Final Creatinine 04/14/2020 18:42 0.6 0.5-1.0 (mg/ dL) Final E Glom Filt Rate 04/14/2020 18:42 >60.0 >60 Final Performing Location [facility] [address] [facility] [place] [address]
--- OUTSIDE RECORDS SUMMARY | 2023-05-10 22:32 | External Medical Summary ---
Author Name Unknown Address [facility] [place] [address] Phone Organization K01:[place] [address] [place] [id number] Laboratory Report Ordering Provider Test Date Status FISH FAN 04/14/2020 17:53:00 Final Observation Date Value Abnormality Reference (Units ) Status ESR 04/14/2020 22:43 50 Above high normal 0-20 (mm/hour) Final Performing Location [address] [address]
--- OUTSIDE RECORDS SUMMARY | 2023-05-10 22:32 | External Medical Summary ---
Author Name Unknown Address Unknown Organization R:IT USE ONLY!!! Laboratory Report Ordering Provider Test Date Status BHUMIKA TOMPKINS 04/15/2020 15:57:00 Final Observation Date Value Abnormality Reference (Units ) Status Glucose Point of Care 04/15/2020 16:12 311 Above high normal 70-120 (mg/dL) Final Performing Location IT USE ONLY!!!
--- OUTSIDE RECORDS SUMMARY | 2023-05-10 22:32 | External Medical Summary | Summary of Care ---
Author Name Unknown Organization [facility] [place] [address] Care Team Providers Care Pattern Weaver Name Role Phone Rajwinder Carter Primary Care Provider [phone] Reason for Visit * Reason Comments Advice Encounter Details Date Type Department Care Team Description 04/13/2020 Telephone [facility] [address] [place] [address] Brianne Pal PA-C [address] [place] [address] Advice Allergies Active Allergy Reactions [...] Dosing Unit 5 10/07/2019 Active nystatin (NYSTOP) 257861 UNIT/GM powder Apply topically to affected area [...] pain 01/24/2012 01/17/2017 Genetic Sleep Disorder Research Other*[id number] 05/13/2011 04/07/2016 Obstructive sleep apnea 01/18/2011 12/27/19 [...] states she's going to the ER in [place]. They might have to take her big [...] Carter DO [address] [facility] [place] [id number] 04/29/2020 Nutrition Services Gastroenterology Melissa Omalley RDN [facility] [address] [place] [address] 05/04/2020 Office Visit Gastroenterology Inocente Gonzalez CRNP 132 [facility] [place] [address] [phone] 05/06/2020 Office Visit [facility]necology [facility]stetrics Aman Small[facility] BOOM [facility] [place] [address] 05/28/2020 Office Visit Gastroenterology Lyssa Stout CRNP [address] [place], [place] [address] [phone] 06/03/2020 Hospital Encounter Surgery Janis Hatch, DO [address] [place] [address] [phone] 06/03/2020 Surgery Surgery Janis Hatch, DO [address] [place], [place] [address] [phone] COLONOSCOPY FLEXIBLE PROXIMAL DIAGNOSTIC 06/30/2020 Office Visit Hematology Oncology Tono Sanchez MD [address] [place] [address], [place] [id number] 09/03/2020 Imaging Radiology Health Maintenance Due Date [...] Documents on File Type Date Recorded Patient Investigator Internal Revenue 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
--- OUTSIDE RECORDS SUMMARY | 2023-05-10 22:32 | External Medical Summary ---
Author Name Unknown Address [address] [facility] [place] [address] Phone Organization K01:[facility] [address] [place] [address] Laboratory Report Ordering Provider Test Date Status LAZ CRAWLEY 04/15/2020 06:17:00 Final Observation Date Value Abnormality Reference (Units ) Status BUN 04/15/2020 07:09 10 6-20 (mg/dL) Final Creatinine 04/15/2020 07:09 0.6 0.5-1.0 (mg/ dL) Final E Glom Filt Rate 04/15/2020 07:09 >60.0 >60 Final Performing Location [facility] [address] [facility] [place] [address]
--- OUTSIDE RECORDS SUMMARY | 2023-05-10 22:33 | External Medical Summary | Summary of Care ---
Author Name Unknown Organization [place] [address] Care Team Providers Care Whale Fisherman Name Role Phone JohnbrianRajwinder thacker Primary Care Provider [phone] Reason for Visit * Reason Comments Pre Cert/Prior Auth Encounter Details Date Type Department Care Team Description 04/02/2020 Telephone Gastroenterology, [facility] 132 [facility] [place] [address] Inocente Gonzalez CRNP [facility] [address] Pre Cert/Prior Auth Allergies Active Allergy Reactions Severity Noted Date Comments Penicillins Rash 02/12/2008 documented as of this encounter (statuses as of 04/07/2020) Medications Medication Sig Dispensed Refills Start Date [...] Dosing Unit 5 10/07/2019 Active nystatin (NYSTOP) 689264 UNIT/GM powder Apply topically to affected area [...] 10 MEQ TBCRIndications:Hyp okalemia TAKE 1 TABLET EVERY DAY WITH FOOD 90 Tab 1 12/04/2019 Active SM ASPIRIN ADULT LOW STRENGTH 81 MG TBEC TAKE 1 TABLET BY MOUTH ONCE DAILY 90 Tab 3 12/04/2019 Active traZODone (DESYREL) 50 MG TabletIndications:S leep disturbances Take 1 Tab by mouth at bedtime. 90 Tab 1 12/04/2019 Active escitalopram (LEXAPRO) 20 MG TabletIndications:R ecurrent major depressive disorder, in partial remission (HCC) Take 1 Tab by mouth daily. 90 Tab 1 12/04/2019 Active Dulaglutide (TRULICITY) 1.5 MG/0.5ML SOPNIndications:Typ e 2 diabetes mellitus with hemoglobin A1c goal of less than 7.0% (HCC) Inject 1 syringeful once weekly 6 mL 1 12/04/2019 Active atorvaSTATin (LIPITOR) 40 MG TabletIndications:D yslipidemia, goal LDL below 70 TAKE 1 TABLET BY MOUTH EVERY NIGHT AT BEDTIME 90 Tab 1 12/30/2019 Active MetFORMIN (GLUCOPHAGE) 1000 MG TabletIndications:T ype 2 diabetes mellitus with hemoglobin A1c goal of less than 7.0% (HCC) TAKE 1 TABLET BY MOUTH TWICE DAILY 180 Tab 1 01/06/2020 Active furosemide (LASIX) 20 MG TabletIndications:L ocalized [...] 0 02/26/2020 Active pantoprazole (PROTONIX) 20 MG TBECIndications:Gas troesophageal [...] before breakfast. 90 Cap 3 03/30/2020 Active documented as of this encounter (statuses as of 04/07/2020) Active Problems Problem Noted Date Iron deficiency [...] as of this encounter (statuses as of 04/07/2020) Resolved Problems Problem Noted Date Resolved Date Chronic hypoxemic respiratory failure 04/08/2019 04/18/2019 Oxygen dependent 04/08/2019 04/18/2019 [facility] resident 04/08/2019 05/02/2019 Preop examination 02/21/2019 04/04/2019 [...] pain 01/24/2012 01/17/2017 Genetic Sleep Disorder Research Other*[id number] 05/13/2011 04/07/2016 Obstructive sleep apnea 01/18/2011 12/27/19 [...] as of this encounter (statuses as of 04/07/2020) Immunizations Name Administration Dates Next Due HEP [...] have Coronavirus / COVID-19? No / Unsure 03/30/2020 2:36 PM EDT documented as of this encounter Miscellaneous Notes * Telephone Encounter - Mikki Colby CPhT - 04/07/2020 4:18 PM EDT Pt calling to check status. I called pharmacy and it went through. Pt Mikki Brown CPhT Pharmacy Refill Call Center 04/07/2020, 4:18 PM * Telephone Encounter - Caron Escobar RN - 04/02/2020 1:28 PM EDT Submitted via cover my meds. * Telephone Encounter - Sabine Valencia LPN - 04/02/2020 9:26 AM EDT Received a fax from [facility] in [facility] Pt delicia needs a prior auth Cover my meds SZYMANSKI: [id number] pts last name: Juli : 1955 documented in this encounter Plan of Treatment Upcoming Encounters Date Type Specialty Care Team Description 04/28/2020 Office Visit Family Medicine Rajwinder Carter DO [address] [place] [address] 04/29/2020 Nutrition Services Gastroenterology Melissa Omalley RDN [address] [place] 230 [facility] [place] [address] 05/04/2020 Office Visit Gastroenterology Inocente Gonzalez CRNP [address] [place] [address] [phone] 05/06/2020 Office Visit Gynecology Obstetrics Amna Small, CNM [address] [place] [address] [phone] 05/28/2020 Office Visit Gastroenterology Lyssa Stout CRNP [address] [place] [address] [phone] 06/03/2020 Hospital Encounter Surgery Janis Hatch, DO [address] [place] [address] [phone] 06/03/2020 Surgery Surgery Janis Hatch, DO [address] [place] [address] [phone] COLONOSCOPY FLEXIBLE PROXIMAL DIAGNOSTIC 06/30/2020 Office Visit Hematology Oncology Tono Sanchez MD 200 [place] [address] [phone] 09/03/2020 Imaging Radiology Health Maintenance Due Date [...] Documents on File Type Date Recorded Patient Cow Trimmer 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
--- OUTSIDE RECORDS SUMMARY | 2023-05-10 22:33 | External Medical Summary ---
Author Name Unknown Address [address] [place] [address] Phone Organization K01:[facility] [address] [facility] [address] Laboratory Report Ordering Provider Test Date Status SEBASTIÁN KOEHLER 04/10/2020 15:31:00 Final Observation Date Value Abnormality Reference (Units ) Status Color Ur Auto 04/11/2020 03:04 YELLOW YEL Final Clarity, Urine 04/11/2020 03:04 CLOUDY Abnormal CLEAR Final Glucose Ur Strip.auto-mCnc 04/11/2020 03:04 1000 Abnormal NEG (mg/dL) Final Bilirub Ur Ql Strip.auto 04/11/2020 03:04 NEGATIVE NEG Final Ketones Ur Strip.auto-mCnc 04/11/2020 03:04 TRACE Abnormal NEG (mg/dL) Final Specific gravity, Urine 04/11/2020 03:04 1.026 1.003-1.030 Final Hemoglobin [Presence] in Urine by Automated test strip 04/11/2020 03:04 LARGE Abnormal NEG Final pH, Urine 04/11/2020 03:04 6.5 5.0-7.5 (units) Final Prot Ur Strip.auto-mCnc 04/11/2020 03:04 100 Abnormal NEG (mg/dL) Final Urobilinogen Ur Strip.auto-mCnc 04/11/2020 03:04 NORMAL NORM (mg/dL) Final Nitrite Ur Ql Strip.auto 04/11/2020 03:04 POSITIVE Abnormal NEG Final Leukocyte esterase [Presence} in Urine by Automated test strip 04/11/2020 03:04 MODERATE Abnormal NEG Final Bacteria/area UmS Auto 04/11/2020 03:04 0-25 [id number] (/HPF) Final WBC No./area UrnS Auto 04/11/2020 03:04 50+ Abnormal U02 (/HPF) Final RBC No./area UrnS Auto 04/11/2020 03:04 50+ Abnormal U02 (/HPF) Final Yeast Budding UrnS Ql 04/11/2020 03:04 PRESENT Abnormal NONE (/HPF) Final Squamous No./area UrnS Auto 04/11/2020 03:04 MANY Abnormal NONE (/HPF) Final Hyaline Casts No./area UrnS Auto 04/11/2020 03:04 30-49 Abnormal UM1 (/LPF) Final Performing Location [facility] [address] [facility] [address]
--- OUTSIDE RECORDS SUMMARY | 2023-05-10 22:33 | External Medical Summary | Summary of Care ---
Author Name Unknown Organization [facility] [address] Care Team Providers Care Photogrammetry Airplane Pilot Name Role Phone Rajwinder Carter DO Primary Care Provider [phone] Encounter Details Date Type Department Care Team Description 04/06/2020 Scan Encounter Unspecified Department <No scans attached> Allergies Active Allergy Reactions Severity Noted Date Comments Penicillins Rash 02/12/2008 documented as of this encounter (statuses as of 04/08/2020) Medications Medication Sig Dispensed Refills Start Date [...] Dosing Unit 5 10/07/2019 Active nystatin (NYSTOP) 370542 UNIT/GM powder Apply topically to affected area [...] as of this encounter (statuses as of 04/08/2020) Active Problems Problem Noted Date Iron deficiency [...] as of this encounter (statuses as of 04/08/2020) Resolved Problems Problem Noted Date Resolved Date [...] pain 01/24/2012 01/17/2017 Genetic Sleep Disorder Research Other*[id number] 05/13/2011 04/07/2016 Obstructive sleep apnea 01/18/2011 12/27/19 [...] as of this encounter (statuses as of 04/08/2020) Immunizations Name Administration Dates Next Due HEP [...] Encounters Date Type Specialty Care Team Description 04/10/2020 Office Visit Family Medicine Brianne Pal PARominaC [address], [place] [address] 04/28/2020 Office Visit Family Medicine Rajwinder Carter, DO [address] [place] [address] [phone] 04/29/2020 Nutrition Services Gastroenterology Melissa Omalley, SAMANTHA [facility] [address] [place] [address] [phone] 05/04/2020 Office Visit Gastroenterology Inocente Gonzalez CRNP [address] [facility] [place] [address] [phone] 05/06/2020 Office Visit Gynecology Obstetrics Aman Small, BOO [address] [facility] [address] [phone] 05/28/2020 Office Visit [facility]enterology Lyssa Stout CRNP [facility] [place] [address] 06/03/2020 Hospital Encounter Surgery Janis Hatch, [address] [facility] [place] [address] [phone] 06/03/2020 Surgery Surgery Janis Hatch, DO [address] [place] [address] [phone] COLONOSCOPY FLEXIBLE PROXIMAL DIAGNOSTIC 06/30/2020 Office Visit Hematology Oncology Tono Sanchez MD 200 [place] [address] [phone] 09/03/2020 Imaging Radiology Health Maintenance Due Date [...] Documents on File Type Date Recorded Patient Heating Unit Installer 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
--- OUTSIDE RECORDS SUMMARY | 2023-05-10 22:33 | External Medical Summary ---
Author Name Unknown Address Unknown Organization R:IT USE ONLY!!! Laboratory Report Ordering Provider Test Date Status SEBASTIÁN KOEHLER 04/10/2020 15:31:00 Final Observation Date Value Abnormality Reference (Units ) Status Source 04/10/2020 15:29 SUPERFICIAL WOUND R GREAT TOE Final Bacteria XXX Cult 04/13/2020 14:48 MULTIPLE SPECIES OF AEROBIC BACTERIA NO FURTHER WORKUP ROUTINELY PERFORMED Final REPORT STATUS 04/13/2020 14:48 04/13/2020 FINAL Final Performing Location IT USE ONLY!!!
--- OUTSIDE RECORDS SUMMARY | 2023-05-10 22:33 | External Medical Summary | Summary of Care ---
Author Name Unknown Organization [place] [address] Care Team Providers Care Educational Assistant Teacher Name Role Phone Rajwinder Carter DO Primary Care Provider [phone] Reason for Visit * Reason Comments Emergency Department Follow-Up Encounter Details Date Type Department Care Team Description 03/18/[address] [facility] [address] [place] [address] Rajwinder Carter DO [address] [place] [address] [phone] Pancytopenia (HCC)*; Iron deficiency anemia due to chronic [...] Dosing Unit 5 10/07/2019 Active nystatin (NYSTOP) 680279 UNIT/GM powder Apply topically to affected area 3 times a day. 60 g 1 10/16/2019 Active BD PEN NEEDLE MINI U/F 31G X 5 MMIndications:Typ e 2 diabetes mellitus with hemoglobin A1c goal of less than 7.0% ([facility]) use with basaglar at bedtime 100 Each [...] 1 12/30/2019 Active MetFORMIN (GLUCOPHAGE) 1000 MG TabletIndications :Type 2 diabetes mellitus with hemoglobin A1c goal of less than 7.0% (HCC) TAKE 1 TABLET BY MOUTH TWICE DAILY 180 Tab 1 01/06/2020 Active furosemide (LASIX) 20 MG TabletIndications :Localized [...] 0 02/26/2020 Active pantoprazole (PROTONIX) 20 MG TBECIndications:G astroesophageal reflux disease, esophagitis presence not specified,NAFLD (nonalcoholic fatty liver disease),Other cirrhosis of liver (HCC) TAKE 2 TABLETS BY MOUTH ONCE DAILY 180 Tab 1 02/26/2020 Active insulin glargine (LANTUS SOLOSTAR) 100 UNIT/ML SOPNIndications:T ype 2 diabetes mellitus with hemoglobin A1c goal of less than 7.0% (HCC) inject 24 units under the skin at bedtime 30 mL 0 12/04/2019 03/25/20 20 Discontinued cyclobenzaprine (FLEXERIL) 10 MG Tablet TAKE 1 TABLET BY MOUTH EVERY NIGHT AT BEDTIME 30 Tab 0 01/30/2020 03/27/20 20 Discontinued oxybutynin (DITROPAN) 5 MG Tablet TAKE 1 TABLET BY MOUTH TWICE DAILY 60 Tab 0 02/26/2020 03/27/20 20 Discontinued documented as of this encounter [...] dependent 04/08/2019 04/18/2019 assisted resident 04/08/2019 05/02/2019 Preop examination 02/21/2019 04/04/2019 [...] pain 01/24/2012 01/17/2017 Genetic Sleep Disorder Research Other*[id number] 05/13/2011 04/07/2016 Obstructive sleep apnea 01/18/2011 12/27/19 [...] Reading Time Taken Comments Blood Pressure 118/76 03/18/2020 12:47 PM EDT Pulse 88 03/18/2020 12:47 PM EDT Temperature 36.4 C (97.5 F) 03/18/2020 12:47 PM E DT Respiratory Rate 20 03/18/2020 12:47 PM EDT Oxygen Saturation - - Inhaled Oxygen Concentration - - Weight - - Height - - Body Mass Index - - documented in this encounter Progress Notes * Rajwinder Carter DO - 03/18/2020 12:41 PM EDT SUBJECTIVE: Chief Complaint Patient presents with Emergency Department Follow-Up HPI: Shaina Bustos is a 64 year old female who presents today for ED follow-up. Pt with multiple ED visits for right sided abdominal pain. She has known very small non-obstructing kidney stones. She is scheduled to see urology in June. This has been an ongoing complaint for her. Pt notes no side or abdominal pain. Pt notes that she wants to have her colonoscopy rescheduled. She notes that her prep was poor. She states that she is wondering if her iron can be stopped for the procedure. She has been following with Dr. Sanchez and did receive iron infusions. She has not yet contacted GI rescheduling this. PHM: Patient Active Problem List Diagnosis [...] of less than 7.0% ([facility]) E11.9 Vitamin D deficiency E55.9 Restrictive lung disease J98.4 Obesity, morbid (more than 100 lbs over ideal weight or BMI > 40) ([facility]) E66.01 Dyslipidemia, goal LDL below 70 E78.5 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 R39.81 Acquired hypothyroidism E03.9 Chronic pain syndrome G89.4 MEDICATION USE AGREEMENT [id number] History of Clostridium difficile colitis Z86.19 Cirrhosis of liver ([facility]) K74.60 THAD on CPAP G47.33, Z99.89 Wheelchair dependent Z99.3 History of recent fall Z91.81 Pancytopenia ([facility]) D61.818 Ambulatory dysfunction R26.2 Fall W19.XXXA Sprain of right ankle S93.401A DM type 2 with diabetic peripheral neuropathy ([facility]) E11.42 Insomnia G47.00 Recurrent major depressive disorder, in partial remission ([facility]) F33.41 Impaired mobility and ADLs Z74.09 Generalized weakness R53.1 Gastroesophageal reflux disease K21.9 History of kidney stones Z87.442 History of Achilles tendon repair Z98.890 History of delivery Z98.891 History of MRSA infection Z86.14 History of migraine Z86.69 Anemia D64.9 Fibromyalgia M79.7 Achilles tendinitis, right leg M76.61 DNR (do not resuscitate) Z66 Thrombocytopenia ([facility]) D69.6 Iron deficiency anemia due to chronic blood loss D50.0 Splenomegaly R16.1 Current Outpatient Medications Medication Sig Dispense Refill oxybutynin (DITROPAN) 5 MG Tablet TAKE 1 TABLET BY MOUTH TWICE DAILY 60 Tab 0 pantoprazole (PROTONIX) 20 MG TBEC TAKE 2 TABLETS BY MOUTH ONCE DAILY 180 Tab 1 tamsulosin (FLOMAX) 0.4 MG Capsule TAKE 1 CAPSULE BY MOUTH ONCE DAILY 30 Cap 0 levothyroxine (LEVOXYL) 200 MCG Tablet Take 1 Tab by mouth daily. 90 Tab 3 cyclobenzaprine (FLEXERIL) 10 MG Tablet TAKE 1 TABLET BY MOUTH EVERY NIGHT AT BEDTIME 30 Tab 0 furosemide (LASIX) 20 MG [...] Tab by mouth daily. 90 Tab 1 insulin glargine (LANTUS SOLOSTAR) 100 UNIT/ML SOPN inject 24 units under the skin at bedtime (Patient taking differently: inject 30 units under the skin at bedtime) 30 mL 0 potassium chloride ER 10 MEQ TBCR [...] at bedtime 100 Each 10 nystatin (NYSTOP) 283518 UNIT/GM powder Apply topically to affected area [...] TABS 1 tab daily 1 Tab 0 Past Medical History: Diagnosis Date Chronic hypoxemic [...] 01/24/2012 Past Surgical History: Procedure Laterality Date DELIVERY 04/20/1982 COLONOSCOPY 04/21/09 repeat in 10 years COLONOSCOPY, DIAGNOSTIC (RECTUM) 10/04/2016 normal bx, repeat 10 yrs/[facility] DENTAL SURGERY PROCEDURE NEC wisdom teeth x 4 DILATION AND CURETTAGE (D&C) EGD, FLEXIBLE, DIAGNOSTIC 10/04/2016 gastritis/[facility] EGD, FLEXIBLE, DIAGNOSTIC 01/11/2018 eso varices, retained food, repeat 1 yr/[facility] PELVIS/HIP JOINT SURGERY NEC teenager aid in walking REPAIR/GRAFT ACHILLES TENDON age 40 aid in walking Review of patient's allergies indicates: Allergen Reactions Pcn [Penicillins] Rash Family History Problem Relation Age of Onset Heart Disorder Father of [place] at age 61 Diabetes Father Heart Disorder Mother of [place] age 72 Cancer None Arthritis None Stroke [...] Topics Alcohol use: No Vaping/E-Cigarette Use Vaping/E-Cigarette Substances Vaping/E-Cigarette Devices OBJECTIVE: BP 118/76 | Pulse 88 | Temp (Src) 97.5 (Tympanic) | Resp 20 | Wt (0.000kg) [...] oriented to person, place, and time. ASSESSMENT/PLAN: (D61.818) Pancytopenia (HCC) (primary encounter diagnosis) (D50.0) Iron deficiency anemia due to chronic blood loss Plan: Pt will need to repeat colonoscopy. GI in process of rescheduling. Pt to call if she does nothear anything. Will likely need different prep. Should continue to follow with Dr. Sanchez regarding her iron infusions. Follow-up: As needed and for routine care. Rajwinder Carter DO documented in this encounter Nursing Notes * Jovana Lambert RN - 03/18/2020 12:51 PM EDT Here for ED follow up Colonoscopy Attempted not cleaned out enough documented in this encounter Plan of Treatment Upcoming Encounters Date Type Specialty Care Team Description 04/10/2020 Office Visit Family Medicine Brianne Pal PA-C [address] [place] [address] [phone] 04/28/2020 Office Visit Rajwinder See DO [address] [place] [address] [phone] 04/29/2020 Nutrition Services Gastroenterology Melissa Omalley, RDN [address] [place] [address] [place] [address] [phone] 05/04/2020 Office Visit Gastroenterology Inocente Gonzalez CRNP [address] [place] [address] [phone] 05/06/2020 Office Visit Gynecology Obstetrics Aman Small, CNM [facility] [place] [id number] 05/28/2020 Office Visit Gastroenterology Lyssa Stout CRNP [address] [facility] [place] [address] [phone] 06/03/2020 Hospital Encounter Surgery Janis Hatch, DO [address] [facility] [place] [address] [phone] 06/03/2020 Surgery [facility]atch[facility] DO [facility] [place] [address] [phone] COLONOSCOPY FLEXIBLE PROXIMAL DIAGNOSTIC 06/30/2020 Office Visit Hematology Oncology Tono Sanchez MD 200 [place] [address] [phone] 09/03/2020 Imaging Radiology Health Maintenance Due Date [...] Diagnoses Diagnosis Pancytopenia (HCC)- Primary Other pancytopenia 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 (chronic) documented in this encounter Advance Directives Documents on File Type Date Recorded Patient Video Game Creator 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"
--- OUTSIDE RECORDS SUMMARY | 2023-05-10 22:33 | External Medical Summary | Summary of Care ---
Author Name Unknown Organization [place] [address] Care Team Providers Care Base Filler Operator Name Role Phone JohnbrianRajwinder thacker Primary Care Provider [phone] Reason for Visit * Reason Comments Pre Cert/Prior Auth Encounter Details Date Type Department Care Team Description 04/02/2020 Telephone Gastroenterology, [facility] 132 [facility] [place] [address] Inocente Gonzalez CRNP [facility] [address] Pre Cert/Prior Auth Allergies Active Allergy Reactions Severity Noted Date Comments Penicillins Rash 02/12/2008 documented as of this encounter (statuses as of 04/02/2020) Medications Medication Sig Dispensed Refills Start Date [...] Dosing Unit 5 10/07/2019 Active nystatin (NYSTOP) 773589 UNIT/GM powder Apply topically to affected area [...] as of this encounter (statuses as of 04/02/2020) Active Problems Problem Noted Date Iron deficiency [...] as of this encounter (statuses as of 04/02/2020) Resolved Problems Problem Noted Date Resolved Date [...] pain 01/24/2012 01/17/2017 Genetic Sleep Disorder Research Other*[id number] 05/13/2011 04/07/2016 Obstructive sleep apnea 01/18/2011 12/27/19 [...] as of this encounter (statuses as of 04/02/2020) Immunizations Name Administration Dates Next Due HEP [...] 9:26 AM EDT Received a fax from [employer] in [place] needs a prior auth Cover my meds SZYMANSKI: [id number] pts last name: Juli : 1955 documented in this encounter Plan of Treatment Upcoming Encounters Date Type Specialty Care Team Description 04/09/2020 Office Visit Family Medicine Rajwinder Carter, DO [address] [place], [place] [id number] 04/14/2020 Office Visit Gastroenterology Lyssa Stout [facility] [address] [phone] 04/29/2020 Nutrition Services Gastroenterology Melissa Omalley RDN [address] [place] [address] [place] [address] [phone] 05/06/2020 Office Visit Gynecology Obstetrics Aman Small CNM [facility] [place] [id number] 05/28/2020 Office Visit Gastroenterology Lyssa Stout CRNP 132 [facility] [place] [address] [phone] 06/03/2020 Hospital Encounter Surgery Janis Hatch, DO [address] [place] [address] [phone] 06/03/2020 Surgery Surgery Janis Hatch, DO [address] [place] [address] [phone] COLONOSCOPY FLEXIBLE PROXIMAL DIAGNOSTIC 06/30/2020 Office Visit Hematology Oncology Tono Sanchez MD 200 [place] [address] [phone] 09/03/2020 Imaging Radiology Health Maintenance Due Date [...] on File Type Date Recorded Patient Sports Complex Attendant 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
--- OUTSIDE RECORDS SUMMARY | 2023-05-10 22:33 | External Medical Summary | Summary of Care ---
Author Name Unknown Organization [place] [address] Care Team Providers Care Assistant Research Scientist Name Role Phone JohnbrianRajwinder thacker Primary Care Provider [phone] Reason for Visit * Reason Comments Pre Cert/Prior Auth Encounter Details Date Type Department Care Team Description 04/02/2020 Telephone Gastroenterology, [facility] 132 [facility] [place] [address] Inocente Gonzalez CRNP 132 [facility] [address] Pre Cert/Prior Auth Allergies [...] Dosing Unit 5 10/07/2019 Active nystatin (NYSTOP) 402151 UNIT/GM powder Apply topically to affected area [...] dependent 04/08/2019 04/18/2019 [facility] resident 04/08/2019 05/02/2019 Preop examination 02/21/2019 04/04/2019 [...] pain 01/24/2012 01/17/2017 Genetic Sleep Disorder Research Other*[id number] 05/13/2011 04/07/2016 Obstructive sleep apnea 01/18/2011 12/27/19 [...] 9:26 AM EDT Received a fax from [employer] [place] needs a prior auth Cover my meds SZYMANSKI: [id number] pts last name: Juli : 1955 documented in this encounter Plan of Treatment Upcoming Encounters Date Type Specialty Care Team Description 04/09/2020 Office Visit Family Medicine Rajwinder Carter DO [address] [place] [address] 04/29/2020 Nutrition Services Gastroenterology Melissa Omalley RDN 310 [facility] [address] [place] [id number] 05/04/2020 Office Visit Gastroenterology Inocente Gonzalez CRNP 132 [facility] [place] [address] 05/06/2020 Office Visit Gynecology Obstetrics Aman Small, BOOM 400 [facility] [place] [address] 05/28/2020 Office Visit Gastroenterology Lyssa Stout CRNP [address] [place] [address] [phone] 06/03/2020 Hospital Encounter Surgery Janis Hatch, DO [address] [place] [address] [phone] 06/03/2020 Surgery Surgery Janis Hatch, DO [address] [place] [address] [phone] COLONOSCOPY FLEXIBLE PROXIMAL DIAGNOSTIC 06/30/2020 Office Visit Hematology Oncology Tono Sanchez MD [address] [place] [address], [place] [address] 09/03/2020 Imaging Radiology Health Maintenance Due Date [...] on File Type Date Recorded Patient Global Safety Officer 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
--- OUTSIDE RECORDS SUMMARY | 2023-05-10 22:33 | External Medical Summary | Summary of Care ---
Author Name Unknown Organization [place] [address] Care Team Providers Care Aviation Electrician Name Role Phone Rajwinder Carter DO Primary Care Provider [phone] Reason for Visit * Reason Comments Emergency Department Follow-Up [facility] 04/06 Encounter Details Date Type Department Care Team Description 04/07/2020 Telephone [facility] [address] [place] [address] Rajwinder Carter DO [address] [place] [address] [phone] Emergency Department Follow-Up ([facility] 04/06/20) Allergies Active Allergy Reactions Severity Noted Date [...] Dosing Unit 5 10/07/2019 Active nystatin (NYSTOP) 991955 UNIT/GM powder Apply topically to affected area [...] Cough or Wheezing. With spacer 16 g 11/06/2019 Active gabapentin (NEURONTIN) 300 MG Capsule [...] pain 01/24/2012 01/17/2017 Genetic Sleep Disorder Research Other*[id number] 05/13/2011 04/07/2016 Obstructive sleep apnea 01/18/2011 12/27/19 [...] Miscellaneous Notes * Telephone Encounter - Tamara Enriquez OSA - 04/07/2020 4:22 PM EDT Pt scheduled. * Telephone Encounter - Josselin Gaspar LPN - 04/07/2020 2:15 PM EDT Please schedule an ER f/u * Telephone Encounter - Marii Reyes OSA - 04/07/2020 10:17 AM EDT Patient was seen in ED. Please see call details. documented in this encounter Plan of Treatment Upcoming Encounters Date Type Specialty Care Team Description 04/10/2020 Office Visit Family Medicine Brianne Pal PA-C [address] [facility] [address] 04/28/2020 Office Visit Family Medicine Rajwinder Carter DO [address] [facility] [id number] 04/29/2020 Nutrition Services Gastroenterology Melissa Omalley RDN [address] [place] [address] [place] [address] [phone] 05/04/2020 Office Visit Gastroenterology Inocente Gonzalez CRNP [address] [place], [place] [address] [phone] 05/06/2020 Office Visit Gynecology Obstetrics Aman Small, BOOM [address] [facility] [place] [address] [phone] 05/28/2020 Office Visit Gastroenterology Lyssa Stout CRNP [address] [place] [address] [phone] 06/03/2020 Hospital Encounter Surgery Janis Hatch, DO [address] [place] [address] [phone] 06/03/2020 Surgery Surgery Janis Hatch, DO [address] [place] [address] [phone] COLONOSCOPY FLEXIBLE PROXIMAL DIAGNOSTIC 06/30/2020 Office Visit Hematology Oncology Tono Sanchez MD [address] [place] [address], [place] [address] [phone] 09/03/2020 Imaging Radiology Health Maintenance Due Date [...] Documents on File Type Date Recorded Patient Primer Inspector 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
--- OUTSIDE RECORDS SUMMARY | 2023-05-10 22:33 | External Medical Summary ---
Author Name Unknown Address Unknown Organization R:IT USE ONLY!!! Laboratory Report Ordering Provider Test Date Status SEBASTIÁN KOEHLER 04/10/2020 15:30:00 Final Observation Date Value Abnormality Reference (Units) Status Source 04/10/2020 15:29 CLEAN CATCH URINE Final Bacteria XXX Cult 04/11/2020 15:21 MULTIPLE MAYRA SUGGESTS CONTAMINATION OR COLONIZATION Final REPORT STATUS 04/11/2020 15:21 04/11/2020 FINAL Final Performing Location IT USE ONLY!!!
--- OUTSIDE RECORDS SUMMARY | 2023-05-10 22:33 | External Medical Summary | Summary of Care ---
Author Name Unknown Organization [place] [address] Care Team Providers Care Porcelain Enamel Sprayer Name Role Phone Rajwinder Carter Primary Care Provider [phone] Reason for Visit * Reason Comments Information lab test results Encounter Details Date Type Department Care Team Description 04/01/2020 Telephone Hematology/Oncology [facility] [address] [place] [address] Tono Sanchez MD [address] [place], [place] [id number] Information (lab test results) Allergies Active Allergy Reactions Severity Noted Date Comments Penicillins Rash 02/12/2008 documented as of this encounter (statuses as of 04/01/2020) Medications Medication Sig Dispensed Refills Start Date [...] Dosing Unit 5 10/07/2019 Active nystatin (NYSTOP) 474771 UNIT/GM powder Apply topically to affected area 3 times a day. 60 g 1 10/16/2019 Active BD PEN NEEDLE MINI U/F 31G X 5 MMIndications:Type 2 diabetes mellitus with hemoglobin A1c goal of less than 7.0% ([facility]) use with basaglar at bedtime [...] as of this encounter (statuses as of 04/01/2020) Active Problems Problem Noted Date Iron deficiency [...] as of this encounter (statuses as of 04/01/2020) Resolved Problems Problem Noted Date Resolved Date [...] pain 01/24/2012 01/17/2017 Genetic Sleep Disorder Research Other*[id number] 05/13/2011 04/07/2016 Obstructive sleep apnea 01/18/2011 12/27/19 [...] as of this encounter (statuses as of 04/01/2020) Immunizations Name Administration Dates Next Due HEP [...] encounter Miscellaneous Notes * Telephone Encounter - Dulce Montes De Oca RN - 04/01/2020 8:44 AM EDT Called patient and made her aware of lab results. She will have labs repeated in [place] a few days before 06/[address] Sanchez. Lab orders placed. * Telephone Encounter - Dulce Montes De Oca RN - 04/01/2020 8:39 AM EDT ----- Message from Tono Sanchez MD sent at 03/31/2020 6:58 PM EDT ----- Blood workup done on 03/30/2020: - WBC= 2500, - H&H= 11.2/34.87 Platelet= 68,000 - MCV 107 - Ferritin level --> 112 - Serum iron: 177, TIBC 274, iron saturation 65%. She received intravenous iron the form of Venofer x 4 between 12/05/2019-02/13/2020. She is a case of cirrhosis of liver, juani hepatis, pancytopenia is expected. She has an appointment with me on 06/30/2020, would like to have CBCD of ferritin, iron profile fewdays before the next clinic appointment. documented in this encounter Plan of Treatment Upcoming Encounters Date Type Specialty Care Team Description 04/09/2020 Office Visit Family Medicine Rajwinder Carter, DO [address] [place], [place] [phone] 04/14/2020 Office Visit Gastroenterology Lyssa Stout CRNP [address] [place] [address] [phone] 04/29/2020 Nutrition Services Gastroenterology Melissa Omalley, RDN [address] [place] [address] [place] [address] [phone] 05/06/2020 Office Visit Gynecology Obstetrics Aman Small, CNM [facility] [place] [id number] 05/28/2020 Office Visit Gastroenterology Lyssa Stout CRNP [address] [place] [address] [phone] 06/03/2020 Hospital Encounter Surgery Janis Hatch, DO [address] [place] [address] [phone] 06/03/2020 Surgery Surgery Janis Hatch, DO [address] [place] [address] [phone] COLONOSCOPY FLEXIBLE PROXIMAL DIAGNOSTIC 06/30/2020 Office Visit Hematology Oncology Tono Sanchez MD [address] [place] [address], [place] [address] [phone] 09/03/2020 Imaging Radiology Scheduled Orders Name Type Priority Associated Diagnoses Orde r Schedule CBC/DIFF Lab STAT Iron deficiency anemia due to chronic blood loss Expected: 07/02/2020 (Approximate), Expires: 10/02/2020 FERRITIN Lab STAT Iron deficiency anemia due to chronic blood loss Expected: 07/02/2020 (Approximate), Expires: 10/02/2020 IRON SCREEN, INCLUDING TIBC Lab STAT Iron deficiency anemia due to chronic blood loss Expected: 07/02/2020 (Approximate), Expires: 10/02/2020 Health Maintenance Due Date Last Done Comments [...] Documents on File Type Date Recorded Patient Orange Picker 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
--- OUTSIDE RECORDS SUMMARY | 2023-05-10 22:33 | External Medical Summary | Summary of Care ---
Author Name Unknown Organization [place] [address] Care Team Providers Care Cash Register Mechanic Name Role Phone JohnbrianRajwinder thacker Primary Care Provider [phone] Reason for Visit * Reason Comments Pre Cert/Prior Auth Encounter Details Date Type Department Care Team Description 04/02/2020 Telephone Gastroenterology, [facility] 132 [facility] [place] [address] Inocente Gonzalez CRNP 132 [facility] [address] Pre Cert/Prior Auth Allergies Active Allergy Reactions Severity Noted Date Comments Penicillins Rash 02/12/2008 documented as of this encounter (statuses as of 04/10/2020) Medications Medication Sig Dispensed Refills Start Date [...] Dosing Unit 5 10/07/2019 Active nystatin (NYSTOP) 210785 UNIT/GM powder Apply topically to affected area [...] as of this encounter (statuses as of 04/10/2020) Active Problems Problem Noted Date Iron deficiency [...] as of this encounter (statuses as of 04/10/2020) Resolved Problems Problem Noted Date Resolved Date Chronic hypoxemic respiratory failure 04/08/2019 04/18/2019 Oxygen dependent 04/08/2019 04/18/2019 long-term resident 04/08/2019 05/02/2019 Preop examination 02/21/2019 04/04/2019 [...] pain 01/24/2012 01/17/2017 Genetic Sleep Disorder Research Other*[id number] 05/13/2011 04/07/2016 Obstructive sleep apnea 01/18/2011 12/27/19 [...] as of this encounter (statuses as of 04/10/2020) Immunizations Name Administration Dates Next Due HEP [...] Telephone Encounter - Caron Escobar RN - 04/10/2020 11:13 AM EDT Received a mailed approval. Added to scan bin. * Telephone Encounter - Mikki Colby CPhT - 04/07/2020 4:18 PM EDT Pt calling to check status. I called pharmacy and it went through. Pt Mikki [facility] Refill Call Center 04/07/2020, 4:18 PM * Telephone Encounter - Caron Escobar RN - 04/02/2020 1:28 PM EDT Submitted via cover my meds. * Telephone Encounter - Sabine Valencia LPN - 04/02/2020 9:26 AM EDT Received a fax from [facility] in [facility] Pt delicia needs a prior auth Cover my meds SZYMANSKI: [id number] pts last name: Juli : 1955 documented in this encounter Plan of Treatment Upcoming Encounters Date Type Specialty Care Team Description 04/10/2020 Office Visit Family Medicine Brianne Pal PA-C [address] [place], [place] [phone] 04/28/2020 Office Visit Family Medicine Rajwinder Carter, DO [address] [facility], [place] [address] 04/29/2020 Nutrition Services Gastroenterology Melissa Omalley, RDN [address] [place] [place] [address] [phone] 05/04/2020 Office Visit Gastroenterology Inocente Gonzalez CRNP [address] [facility] [address] [phone] 05/06/2020 Office Visit Gynecology Obstetrics Aman Small, CNM [address] [facility] [place] [id number] 05/28/2020 Office Visit Gastroenterology Lyssa Stout CRNP [address] [facility] [place] [address] [phone] 06/03/2020 Hospital Encounter Surgery [facility]atch[facility] DO [facility] [place] [address] [phone] 06/03/2020 Surgery [facility] Hatch[facility] [place] [address] [phone] COLONOSCOPY FLEXIBLE PROXIMAL DIAGNOSTIC 06/30/2020 Office Visit Hematology Oncology Tono Sanchez MD 200 [place] [address] [phone] 09/03/2020 Imaging Radiology Health Maintenance Due Date [...] on File Type Date Recorded 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
--- OUTSIDE RECORDS SUMMARY | 2023-05-10 22:34 | External Medical Summary ---
Author Name Unknown Address [address] [id number] Phone Organization K01:[facility] [address] [id number] Laboratory Report Ordering Provider Test Date Status JACOB CORBETT 03/30/2020 13:41:00 Final Observation Date Value Abnormality Reference (Units ) Status Iron 03/30/2020 23:12 177 Above high normal 33-151 (ug/dL) Final Iron-binding capacity 03/30/2020 23:12 274 250-425 (ug/dL) Final Transferrin Sat % 03/30/2020 23:12 65 Above high normal 15-55 (%) Final Performing Location [facility] [address] [facility] [address]
--- OUTSIDE RECORDS SUMMARY | 2023-05-10 22:34 | External Medical Summary | Summary of Care ---
Author Name Unknown Organization [place] [address] Care Team Providers Care Director Mobile Media [employer] Name Role Phone Rajwinder Carter DO Primary Care Provider [phone] Reason for Visit * Reason Comments eRx-Medication Refill Medication Refill Encounter Details Date Type Department Care Team Description 03/23/2020 Refill [facility] [address] [place] [address] Rajwinder Carter DO [address] [place] [address] [phone] Type 2 diabetes mellitus with hemoglobin A1c goal of less than 7.0% (HCC) Allergies Active Allergy Reactions Severity Noted Date Comments Penicillins Rash 02/12/2008 documented as of this encounter (statuses as of 03/25/2020) Medications Medication Sig Dispensed Refills Start Date [...] Dosing Unit 5 10/07/2019 Active nystatin (NYSTOP) 250865 UNIT/GM powder Apply topically to affected area [...] FOR EDEMA 30 Tab 5 01/28/2020 Active cyclobenzaprine (FLEXERIL) 10 MG Tablet TAKE 1 TABLET BY MOUTH EVERY NIGHT AT BEDTIME 30 Tab 0 01/30/2020 Active levothyroxine (LEVOXYL) 200 MCG Tablet Take 1 Tab by mouth daily. 90 Tab 3 02/20/2020 Active tamsulosin (FLOMAX) 0.4 MG Capsule TAKE 1 CAPSULE BY MOUTH ONCE DAILY 30 Cap 0 02/26/2020 Active oxybutynin (DITROPAN) 5 MG Tablet TAKE 1 TABLET BY MOUTH TWICE DAILY 60 Tab 0 02/26/2020 Active pantoprazole (PROTONIX) 20 MG [...] at bedtime 15 mL 5 03/25/2020 Active insulin glargine (LANTUS SOLOSTAR) 100 UNIT/ML SOPNIndications:T ype 2 diabetes mellitus with hemoglobin A1c goal of less than 7.0% (HCC) inject 24 units under the skin at bedtime 30 mL 0 12/04/2019 03/25/20 20 Discontinued documented as of this encounter (statuses as of 03/25/2020) Active Problems Problem Noted Date Iron deficiency [...] as of this encounter (statuses as of 03/25/2020) Resolved Problems Problem Noted Date Resolved Date [...] pain 01/24/2012 01/17/2017 Genetic Sleep Disorder Research Other*[id number] 05/13/2011 04/07/2016 Obstructive sleep apnea 01/18/2011 12/27/19 [...] as of this encounter (statuses as of 03/25/2020) Immunizations Name Administration Dates Next Due HEP [...] have Coronavirus / COVID-19? Unable to assess 03/24/2020 3:59 PM EDT documented as of this encounter Miscellaneous Notes * Telephone Encounter - Rajwinder Carter DO - 03/25/2020 9:02 AM EDT Rx sent. * Telephone Encounter - Melissa Padilla CPhT - 03/25/2020 8:07 AM EDT Pharmacy calling to request refills on the Rx for Lantus Solostar. Informed request submitted and pending 's approval. Corrie [facility] had to give pt 1 pen until refill approved as she ran out. Can someone please approve this Rx? Thank you, Melissa Padilla CPhT Meeting Manager [facility] 03/25/2020, 8:07 AM * Telephone Encounter - Indira Hudson [facility] - 03/24/2020 4:32 PM EDT Pending Prescriptions: Disp Refills insulin glargine (LANTUS SOLOSTAR) 100 UN*15 mL 0 Sig: inject 24 units under the skin at bedtime * Telephone Encounter - Lizzie Alfaro, [facility] - 03/24/2020 3:21 PM EDT Pending Prescriptions: Disp Refills insulin glargine (LANTUS SOLOSTAR) 100 UNI*15 mL 0 Sig: inject 24 units under the skin at bedtime * Telephone Encounter - Lizzie Alfaro [facility] - 03/24/2020 3:21 PM EDT Pending Prescriptions: Disp Refills insulin glargine (LANTUS SOLOSTAR) 100 UN*15 mL 0 Sig: inject 24 units under the skin at bedtime * Telephone Encounter - Lizzie Alfaro [facility] - 03/24/2020 3:21 PM EDT Forwarding to [facility] in clinic pharmacist. Patient not currently managed for DM by telepharmacy. Please approve refill if appropriate. Thank you, Lizzie Alfaro, [facility] Clinical Pharmacist TelePharmacy 03/24/20 3:21 PM * Telephone Encounter - Rajwinder Niño PHARM Tech - 03/23/2020 3:06 PM EDT Pending Prescriptions: Disp Refills insulin glargine (LANTUS SOLOSTAR) 100 UN*15 mL 0 Sig: inject 24 units under the skin at bedtime Last Office/Telemedicine Visit: 03/18/2020 Next Office Visit: 04/09/2020 Scheduled Provider(s): Rajwinder Carter DO If no future appointments scheduled, and last appointment is greater than a year ago, please schedule patient for a follow-up appointment Last date the medication was ordered: 12/04/19 Pharmacy: [facility] [id number] Is this request for a controlled substance?No Urine Drug Screen:No results found. However, due to the size of the patient record, not all encounters were searched. Please check Results Review for a complete set of results. Patient Phone Numbers Labs: Lab Results Component Value Date/Time CREAT 0.6 03/10/2020 02:40 PM POTASSIUM 4.0 02/21/2020 11:43 AM TSH 5.15 (H) 02/21/2020 11:43 AM LDLCALC 43 04/05/2019 06:40 AM LDLDIRECT 46 02/21/2020 11:43 AM ALT 30 02/21/2020 11:43 AM HGBA1C 6.7 (H) 02/21/2020 11:43 AM documented in this encounter Plan of Treatment Upcoming Encounters Date Type Specialty Care Team Description 04/09/2020 Office Visit Family Medicine Rajwinder Carter DO [address] [place] [address] 04/14/2020 Office Visit Gastroenterology Lyssa Stout CRNP [address] [place] [address] 04/29/2020 Nutrition Services Gastroenterology Melissa Omalley RDN [address] [place] [address] [phone] 05/06/2020 Office Visit Gynecology Obstetrics Aman Small CNM [address] [place] [address] [phone] 05/28/2020 Office Visit Gastroenterology Lyssa Stout CRNP [address] [place] [address] [phone] 06/30/2020 Office Visit Hematology Oncology Tono Sanchez MD [address] [facility], [place] [address] [phone] 09/03/2020 Imaging Radiology Health Maintenance Due Date [...] Documents on File Type Date Recorded Patient Sample Hand 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
--- OUTSIDE RECORDS SUMMARY | 2023-05-10 22:34 | External Medical Summary | Summary of Care ---
Author Name Unknown Organization [place] [address] Care Team Providers Care Quality Assurance Nurse Name Role Phone Rajwinder Carter DO Primary Care Provider [phone] Reason for Visit * Reason Comments Hospital Follow-Up Encounter Details Date Type Department Care Team Description 02/27/2020 Office Visit [facility] [address] [place] [address] Rajwinder Carter DO [address] [place] [address] [phone] Hospital discharge follow-up*; Urinary tract infection with hematuria, site unspecified; Nephrolithiasis Allergies Active Allergy Reactions Severity Noted Date Comments Penicillins Rash 02/12/2008 documented as of this encounter (statuses as of 03/27/2020) Medications Medication Sig Dispensed Refills Start Date [...] Dosing Unit 5 0 Active nystatin (NYSTOP) 497566 UNIT/GM powder Apply topically to affected area 3 times a day. 60 g 1 0 Active BD PEN NEEDLE MINI U/F 31G X 5 MMIndications:Typ e 2 diabetes mellitus with hemoglobin A1c goal of less than 7.0% ([facility]) use with basaglar at bedtime [...] FOR EDEMA 30 Tab 5 0 Active cyclobenzaprine (FLEXERIL) 10 MG Tablet TAKE 1 TABLET BY MOUTH EVERY NIGHT AT BEDTIME 30 Tab 0 0 Active levothyroxine (LEVOXYL) 200 MCG Tablet Take 1 Tab by mouth daily. 90 Tab 3 0 Active tamsulosin (FLOMAX) 0.4 MG Capsule TAKE 1 CAPSULE BY MOUTH ONCE DAILY 30 Cap 0 0 Active oxybutynin (DITROPAN) 5 MG Tablet TAKE 1 TABLET BY MOUTH TWICE DAILY 60 Tab 0 0 Active pantoprazole (PROTONIX) 20 MG TBECIndications:G astroesophageal reflux disease, esophagitis presence not specified,NAFLD (nonalcoholic fatty liver disease),Other cirrhosis of liver (HCC) TAKE 2 TABLETS BY MOUTH ONCE DAILY 180 Tab 1 0 Active furosemide (LASIX) 20 MG Tablet Take 20 mg by mouth daily. Every other day 0 02/28/20 20 Discontinued(Med ication/Dose Changed) insulin glargine (LANTUS SOLOSTAR) 100 UNIT/ML SOPNIndications:T ype 2 diabetes mellitus with hemoglobin A1c goal of less than 7.0% (HCC) inject 24 units under the skin at bedtime 30 mL 0 0 03/25/20 20 Discontinued cefdinir (OMNICEF) 300 MG Capsule 300 mg 4 times a day. Until gone. 0 0 02/28/20 20 Discontinued sucralfate (CARAFATE) 1 GM Tablet 0 0 02/28/20 20 Discontinued cefdinir (OMNICEF) 300 MG Capsule Take 1 Cap by mouth every 12 hours. For 10 days. 20 Cap 0 0 02/28/20 20 Discontinued documented as of this encounter (statuses as of 03/27/2020) Active Problems Problem Noted Date Iron deficiency [...] as of this encounter (statuses as of 03/27/2020) Resolved Problems Problem Noted Date Resolved Date Chronic hypoxemic respiratory failure 04/08/2019 04/18/2019 Oxygen dependent 04/08/2019 04/18/2019 halfway resident 04/08/2019 05/02/2019 Preop examination 02/21/2019 04/04/2019 [...] pain 01/24/2012 01/17/2017 Genetic Sleep Disorder Research Other*[id number] 05/13/2011 04/07/2016 Obstructive sleep apnea 01/18/2011 12/27/19 [...] as of this encounter (statuses as of 03/27/2020) Immunizations Name Administration Dates Next Due HEP [...] have Coronavirus / COVID-19? No / Unsure 03/26/2020 10:47 AM EDT documented as of this encounter Last Filed Vital Signs Vital Sign Reading Time Taken Comments Blood Pressure 124/70 02/27/2020 11:48 AM EDT Pulse 80 02/27/2020 11:48 AM EDT Temperature 36.9 C (98.5 F) 02/27/2020 11:48 AM E DT Respiratory Rate 24 02/27/2020 11:48 AM EDT Oxygen Saturation - - Inhaled Oxygen Concentration - - Weight - - Height - - Body Mass Index - - documented in this encounter Progress Notes * Rajwinder Carter DO - 02/27/2020 11:54 AM EDT SUBJECTIVE: Chief Complaint Patient presents with Hospital Follow-Up HPI: Shaina Bustos is a 64 year old female who presents today for hospital and ED follow-up. Please see those reports for full details. Pt states that she is doing ok. She states that she has been seeing Dr. De La Fuente for a year. We do not have any records. She states that he is a radiologist and is taking care of her UTI issues. She notes that she is doing ok today. She is taking her antibiotics. Pt notes that her caregiver is coming 5 days a week. She is not able to shower or bath in months because the floor in the bathroom will apparently not hold her. She states that the caregiver will bath her in bed. Her sdzgjr-jr-pru is living with them as well as her 's grandson. She notes that her is making her meals for her. PHM: Patient Active Problem List Diagnosis Code Edema R60.9 Venous insufficiency I87.2 Spinal stenosis of lumbar region without neurogenic claudication M48.061 Cerebral palsy ([facility]) G80.9 HTN, goal below 140/90 [...] than 7.0% ([facility]) E11.9 Vitamin D deficiency E55.9 Restrictive lung disease J98.4 Obesity, morbid (more than 100 lbs over ideal weight or BMI > 40) ([facility]) E66.01 Dyslipidemia, goal LDL below 70 E78.5 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 R39.81 Acquired hypothyroidism E03.9 Chronic pain syndrome G89.4 MEDICATION USE AGREEMENT [id number] History of Clostridium difficile colitis Z86.19 Cirrhosis of liver ([facility]) K74.60 THAD on CPAP G47.33, Z99.89 Wheelchair dependent Z99.3 History of recent fall Z91.81 Pancytopenia ([facility]) D61.818 Ambulatory dysfunction R26.2 Fall W19.XXXA Sprain of right ankle S93.401A DM type 2 with diabetic peripheral neuropathy ([facility]) E11.42 Insomnia G47.00 Recurrent major depressive disorder, in partial remission ([facility]) F33.41 Impaired mobility and ADLs Z74.09 Generalized [...] Current Outpatient Medications Medication Sig Dispense Refill cefdinir (OMNICEF) 300 MG Capsule Take 1 Cap by mouth every 12 hours. For 10 days. 20 Cap 0 oxybutynin (DITROPAN) 5 MG Tablet TAKE [...] EVERY NIGHT AT BEDTIME 30 Tab 0 sucralfate (CARAFATE) 1 GM Tablet furosemide (LASIX) 20 MG Tablet TAKE 1 TABLET BY MOUTH ONCE DAILY NEEDED FOR EDEMA 30 Tab 5 cefdinir (OMNICEF) 300 MG Capsule 300 mg 4 times a day. Until gone. MetFORMIN (GLUCOPHAGE) 1000 MG Tablet TAKE 1 [...] units under the skin at bedtime 30 mL0 potassium chloride ER 10 MEQ TBCR TAKE [...] at bedtime 100 Each 10 nystatin (NYSTOP) 536218 UNIT/GM powder Apply topically to affected area [...] EACH NOSTRIL DAILY DIRECTED 16 g 5 furosemide (LASIX) 20 MG Tablet Take 20 mg by mouth daily. Every other day vitamin c (ASCORBIC ACID) 500 MG Tablet [...] DIAGNOSTIC (RECTUM) 10/04/2016 normal bx, repeat 10 yrs/[facility] DENTAL SURGERY PROCEDURE NEC wisdom teeth x 4 DILATION AND CURETTAGE (D&C) EGD, FLEXIBLE, DIAGNOSTIC 10/04/2016 gastritis/[facility] EGD, FLEXIBLE, DIAGNOSTIC 01/11/2018 eso varices, retained food, repeat 1 yr/[facility] PELVIS/HIP JOINT SURGERY NEC teenager aid in walking REPAIR/[employer] age 40 aid in walking Review of patient's allergies indicates: Allergen Reactions Pcn [Penicillins] Rash Family History Problem Relation Age of Onset Heart Disorder Father of [place] at age 61 Diabetes Father Heart Disorder Mother of [place] age 72 Cancer None Arthritis None Stroke [...] No Vaping/E-Cigarette Use Vaping/E-Cigarette Substances Vaping/E-Cigarette Devices REVIEW OF SYSTEMS: [...] Negative for color change, pallor and rash. OBJECTIVE: BP 124/70 | Pulse 80 | Temp (Src) 98.5 (Tympanic) | Resp 24 | Wt (0.000kg) PHYSICAL EXAM: Physical Exam [...] (Z09) Hospital discharge follow-up (primary encounter diagnosis) (N39.0, R31.9) Urinary tract infection with hematuria, site unspecified (N20.0) Nephrolithiasis Plan: DISCH MED RECON CUR MED LIS Pt doing well overall. She is to finish out antibiotics. Reviewed that I do not believe that these stones are causing significant pain. She is advised to f/u with urology. Scheduling asked to assist with f/u appt. Follow-up: As scheduled Rajwinder Carter DO documented in this encounter Nursing Notes * Jovana Lambert RN - 02/27/2020 11:47 AM EDT Here for hospital follow up Kidney stones and UTI documented in this encounter Plan of Treatment Upcoming Encounters Date Type Specialty Care Team Description 03/30/2020 Office Visit Gastroenterology Inocente Gonzalez CRNP [address] [place] [address] 04/09/2020 Office Visit Family Medicine Rajwinder Carter DO [address], [place] [address] 04/14/2020 Office Visit Gastroenterology Lyssa Stout CRNP [address] [address] [phone] 04/29/2020 Nutrition Services Gastroenterology Melissa Omalley RDN [address] [place] [address] 05/06/2020 Office Visit Gynecology Obstetrics Aman Small, MANAV [address] [facility] [place] [address] 05/28/2020 Office Visit [facility]ology [facility] [address] [facility] [place] [address] [phone] 06/30/2020 Office Visit Hematology Oncology Tono Sanchez MD [address] [facility] [place] [address] [phone] 09/03/2020 Imaging Radiology Health Maintenance Due Date [...] Hospital discharge follow-up- Primary Other follow-up examination Urinary tract infection with hematuria, site unspecified Nephrolithiasis Calculus of kidney documented in this encounter Advance Directives Documents on File Type Date Recorded 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
--- OUTSIDE RECORDS SUMMARY | 2023-05-10 22:34 | External Medical Summary | Summary of Care ---
Author Name Unknown Organization [place] [address] Care Team Providers Care Design Technology Professor Name Role Phone JohnbrianRajwinder thacker Primary Care Provider [phone] Reason for Referral * Precert (Routine) Status Reason Specialty Diagnoses / Procedures Referred By Contact Referred To Contact Pending Review Precert Radiology Diagnoses Cirrhosis of liver without ascites, unspecified hepatic cirrhosis type (HCC) Procedures CT LIVER W WO IV CONTRAST - WO ORAL CONTRAST Inocente Gonzalez CRNP [address] [facility] [place] [address] Reason for Visit * Reason Comments Follow Up Iron deficency anemi a, cirrhosis without ascites, IPMN Encounter Details Date Type Department Care Team Description 03/30/2020 Office Visit Gastroenterology, [facility] [address] [place] [address] Inocente Gonzalez CR[facility] [address] [facility] [place] [address] [phone] Cirrhosis of liver without ascites, unspecified hepatic cirrhosis type (HCC)*; Other iron deficiency anemia Allergies Active Allergy Reactions Severity Noted Date Comments Penicillins Rash 02/12/2008 documented as of this encounter (statuses as of 03/31/2020) Medications Medication Sig Dispensed Refills Start Date [...] Dosing Unit 5 10/07/2019 Active nystatin (NYSTOP) 325950 UNIT/GM powder Apply topically to affected area [...] as of this encounter (statuses as of 03/31/2020) Active Problems Problem Noted Date Iron deficiency [...] as of this encounter (statuses as of 03/31/2020) Resolved Problems Problem Noted Date Resolved Date [...] pain 01/24/2012 01/17/2017 Genetic Sleep Disorder Research Other*[id number] 05/13/2011 04/07/2016 Obstructive sleep apnea 01/18/2011 12/27/19 [...] as of this encounter (statuses as of 03/31/2020) Immunizations Name Administration Dates Next Due HEP [...] Sign Reading Time Taken Comments Blood Pressure 125/69 03/30/2020 2:36 PM EDT Pulse 68 03/30/2020 2:36 PM EDT Temperature 37.6 C (99.7 F) 03/30/2020 2:36 PM ED T Respiratory Rate - - Oxygen Saturation - - Inhaled Oxygen Concentration - - Weight 113.4 kg (250 lb) 03/30/2020 2:36 PM EDT Height - - Body Mass Index 50.49 02/21/2020 10:40 AM EDT documented in this encounter Nursing Notes * Sharon Lincoln LPN - 03/30/2020 2:39 PM EDT Chief Complaint Patient presents with Follow Up Iron deficency anemia, cirrhosis without ascites, IPMN Pt wants to discuss the colonoscopy. She states that Lyssa does not want her to have the scope butshe is having bleeding from her rectum. documented in this encounter Plan of Treatment Upcoming Encounters Date Type Specialty Care Team Description 04/09/2020 Office Visit Family Medicine Rajwinder Carter, DO [address] [facility], [place] [address] [phone] 04/14/2020 Office Visit Gastroenterology Lyssa Stout CRNP [address] [facility] [place] [address] [phone] 04/29/2020 Nutrition Services Gastroenterology Melissa Omalley, SAMANTHA [address] [place] [address] [phone] 05/06/2020 Office Visit Gynecology Obstetrics Aman Small, BOOM [address] [place] [id number] 05/28/2020 Office Visit [facility]astroenterology [facility] Stout CR[facility] [address] [facility] [place] [address] [phone] 06/03/2020 Hospital Encounter [facility] Hatch[facility] [address] [facility] [place] [address] [phone] 06/03/2020 Surgery Surgery Janis Hatch, [address] [facility] [place] [address] [phone] COLONOSCOPY FLEXIBLE PROXIMAL DIAGNOSTIC 06/30/2020 Office Visit Hematology Oncology Tono Sanchez MD [address] [facility] [place] [address] [phone] 09/03/2020 Imaging Radiology Scheduled Orders Name Type Priority Associated Diagnoses Orde r Schedule CT LIVER W WO IV CONTRAST - WO ORAL CONTRAST Medical Imaging Routine Cirrhosis of liver without ascites, unspecified hepatic cirrhosis type (HCC) Expected: 03/30/2020, Expires: 03/30/2021 COLONOSCOPY Gastro Lower Routine Cirrhosis of liver without ascites, unspecified hepatic cirrhosis type (HCC) Ordered: 03/30/2020 Health Maintenance Due Date Last Done Comments [...] ascites, unspecified hepatic cirrhosis type (HCC)- Primary Other iron deficiency anemia documented in this encounter Advance Directives Documents on File Type Date Recorded Patient Nut Picker 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
--- OUTSIDE RECORDS SUMMARY | 2023-05-10 22:34 | External Medical Summary | Summary of Care ---
Author Name Unknown [place] [address] Care Team Providers Care Manager Of Warehouse Name Role Phone Rajwinder Carter DO Primary Care Provider [phone] Encounter Details Date Type Department Care Team Description 03/31/2020 Orders Only Outcomes Research Department [address] [place], [place] [id number] Kike Moran CHRA MyCode Research Other*[id number] Allergies Active Allergy Reactions Severity Noted Date [...] Dosing Unit 5 10/07/2019 Active nystatin (NYSTOP) 176114 UNIT/GM powder Apply topically to affected area [...] dependent 04/08/2019 04/18/2019 retirement resident 04/08/2019 05/02/2019 Preop examination 02/21/2019 04/04/2019 [...] pain 01/24/2012 01/17/2017 Genetic Sleep Disorder Research Other*[id number] 05/13/2011 04/07/2016 Obstructive sleep apnea 01/18/2011 12/27/19 [...] Family Medicine Rajwinder Carter, DO [address] [place] [address] [phone] 04/14/2020 Office Visit Gastroenterology Lyssa Stout CRNP [address] [place] [address] [phone] 04/29/2020 Nutrition Services Gastroenterology Melissa Omalley, RDN [address] [place] [address] [phone] 05/06/2020 Office Visit Gynecology Obstetrics Aman Small, CNM [address] [place] [address] [phone] 05/28/2020 Office Visit Gastroenterology Lyssa Stout CRNP [address] [place] [address] [phone] 06/03/2020 Hospital Encounter Surgery Janis Hatch, DO [address] [place] [address] [phone] 06/03/2020 Surgery Surgery Janis Hatch, DO [address] [place] [address] [phone] COLONOSCOPY FLEXIBLE PROXIMAL DIAGNOSTIC 06/30/2020 Office Visit Hematology Oncology Tono Sanchez MD [address] [place] [address] [phone] 09/03/2020 Imaging Radiology Scheduled Orders Name Type Priority Associated Diagnoses Orde r Schedule MYCODE SUBSEQUENT ADULT Lab Routine MyCode Research Other*[id number] Every 6 Months for 2 Occurrences starting 03/31/2020 until 04/20/2021 Health Maintenance Due Date Last Done Comments [...] this encounter Visit Diagnoses Diagnosis MyCode Research Other*[id number] documented in this encounter Advance Directives Documents on File Type Date Recorded Patient Psychological Stress Evaluator 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
--- OUTSIDE RECORDS SUMMARY | 2023-05-10 22:34 | External Medical Summary ---
Author Name Unknown Address [address] [facility] [place] [address] Phone Organization K09:[facility] [address] [facility] [place] [address] Laboratory Report Ordering Provider Test Date Status JACOB CORBETT 03/30/2020 13:41:00 Final Observation Date Value Abnormality Reference (Units ) Status WBC, Total 03/30/2020 13:58 2.58 Below low normal 4.00-10.80 (K/uL) Final RBC 03/30/2020 13:58 3.23 Below low normal 3.85-5.15 (M/uL) Final Hemoglobin 03/30/2020 13:58 11.2 Below low normal 12.0-15.3 (g/dL) Final HCT 03/30/2020 13:58 34.8 Below low normal 36.0-45.2 (%) Final MCV 03/30/2020 13:58 107.7 Above high normal 81.5-97.5 (fL) Final MCH 03/30/2020 13:58 34.7 Above high normal 27.0-34.0 (pg) Final MCHC 03/30/2020 13:58 32.2 32.0-36.0 (g/dL) Final RDW 03/30/2020 13:58 15.8 Above high normal 11.5-15.5 (%) Final Platelets 03/30/2020 13:58 68 Below low normal 140-400 (K/uL) Final MPV 03/30/2020 13:58 13.0 Above high normal 6.6-11.1 (fL) Final Segs 03/30/2020 13:58 60.9 40-75 (%) Final Lymphs % 03/30/2020 13:58 23.6 18-42 (%) Final Monos 03/30/2020 13:58 8.9 1-11 (%) Final Eosinophils 03/30/2020 13:58 5.8 0-6 (%) Final Basos 03/30/2020 13:58 0.8 0-2 (%) Final Neutrophils Bld 03/30/2020 13:58 1.57 Below low normal 1.8-7.7 (K/uL) Final Lymphs, absolute 03/30/2020 13:58 0.61 Below low normal 1.0-4.8 (K/uL) Final Monos, Abs 03/30/2020 13:58 0.23 0.0-1.1 (K/uL) Final Eos, Abs 03/30/2020 13:58 0.15 0.0-0.7 (K/uL) Final Basos, Abs 03/30/2020 13:58 0.02 0.0-0.2 (K/uL) Final Anisocytosis Bld Ql Smear 03/30/2020 13:58 SLIGHT Final Macrocytes Bld Ql Smear 03/30/2020 13:58 PRESENT Final Dacryocytes Bld Ql Smear 03/30/2020 13:58 FEW Final Performing Location [facility] [address] [place] [address]
--- OUTSIDE RECORDS SUMMARY | 2023-05-10 22:34 | External Medical Summary ---
Author Name Unknown Address [address] [id number] Phone Organization K01:[facility] [address] [id number] Laboratory Report Ordering Provider Test Date Status JACOB CORBETT 03/30/2020 13:41:00 Final Observation Date Value Abnormality Reference (Units ) Status Ferritin 03/30/2020 23:21 112.7 13-150 (ng/mL ) Final Performing Location [place] [address] [address] [facility] [address]
--- OUTSIDE RECORDS SUMMARY | 2023-05-10 22:34 | External Medical Summary | Summary of Care ---
Author Name Unknown Organization [place] [address] Care Team Providers Care Word Processor Operator Name Role Phone Rajwinder Carter Primary Care Provider [phone] Reason for Visit * Reason Comments Advice Encounter Details Date Type Department Care Team Description 03/17/2020 Telephone Gastroenterology, Suzie Sanchez [address] [place] [address] Maritza Fernando MD [address] [place] [address] Advice Allergies Active Allergy Reactions Severity Noted Date Comments Penicillins Rash 02/12/2008 documented as of this encounter (statuses as of 03/24/2020) Medications Medication Sig Dispensed Refills Start Date [...] Dosing Unit 5 10/07/2019 Active nystatin (NYSTOP) 030240 UNIT/GM powder Apply topically to affected area 3 times a day. 60 g 1 10/16/2019 Active BD PEN NEEDLE MINI U/F 31G X 5 MMIndications:Type 2 diabetes mellitus with hemoglobin A1c goal of less than 7.0% ([facility]) use with basaglar at bedtime 100 Each [...] WITH FOOD 90 Tab 1 12/04/2019 Active insulin glargine (LANTUS SOLOSTAR) 100 UNIT/ML SOPNIndications:Ty pe 2 diabetes mellitus with hemoglobin A1c goal of less than 7.0% ([facility]) inject 24 units under the skin at bedtime 30 mL 0 12/04/2019 Active Additional Information Patient taking differently: inject 30 units under the skin at bedtime, Reported on 02/28/2020 12:12 PM SM ASPIRIN ADULT LOW STRENGTH 81 MG [...] ONCE DAILY 180 Tab 1 02/26/2020 Active documented as of this encounter (statuses as of 03/24/2020) Active Problems Problem Noted Date Iron deficiency [...] as of this encounter (statuses as of 03/24/2020) Resolved Problems Problem Noted Date Resolved Date Chronic hypoxemic respiratory failure 04/08/2019 04/18/2019 Oxygen dependent 04/08/2019 04/18/2019 penitentiary resident 04/08/2019 05/02/2019 Preop examination 02/21/2019 04/04/2019 [...] pain 01/24/2012 01/17/2017 Genetic Sleep Disorder Research Other*[id number] 05/13/2011 04/07/2016 Obstructive sleep apnea 01/18/2011 12/27/19 [...] as of this encounter (statuses as of 03/24/2020) Immunizations Name Administration Dates Next Due HEP [...] Miscellaneous Notes * Telephone Encounter - Janett Carranza OSA - 03/24/2020 4:03 PM EDT Patient decided to schedule an office visit to discuss colonoscopy - scheduled 04/14/2020. * Telephone Encounter - Marcelle Rosales OSA - 03/24/2020 3:47 PM EDT Patient calling in to check on the status of previous message. * Telephone Encounter - Lyssa Stout CRNP - 03/23/2020 9:46 AM EDT I haven't received a reply from Dr. Sanchez (Heme/Onc). However pt had been adamant to schedule colonoscopy. pls schedule with 2 day bowel prep,location at [facility], Prefers Dr. Farnsworth (not Tyrese or Abdullahi) ZAK Schreiber * Telephone Encounter - Ramez Ledbetter OSA - 03/23/2020 8:50 AM EDT Pt calling again to check on scheduling colonoscopy. Please advise. * Telephone Encounter - Lidia Betancourt OSA - 03/20/2020 2:07 PM EDT Patient has been notified of the message. Patient has no further questions. * Telephone Encounter - Imelda Galvan OSA - 03/20/2020 11:46 AM EDT Patient calling in to check on the status of previous message. * Telephone Encounter - Lyssa Stout CRNP - 03/19/2020 1:06 PM EDT I called and spoke w pt. She is adamant about repeating colonoscopy with 2 day bowel prep. I again informed her that I suspect the colonoscopy will provide low yield to locate source of GI bleeding or findings of malignancy as her most recently one in 2017 was unremarkable. I advised against repeating test but she insisted. I will discuss with her Halal Butcher before re-scheduling ZAK Schreiber * Telephone Encounter - Cherelle Isabel OSA - 03/19/2020 9:38 AM EDT Reason for patient's call: patient returning call Caller was transferred to [facility] nurse line. * Telephone Encounter - Jimy Ponce OSA - 03/18/2020 5:43 PM EDT Pt called back in after department hours. Please call pt back and advise. * Telephone Encounter - Lyssa Stout CRNP - 03/18/2020 3:31 PM EDT I attempted to call her cell, no answer, unable to leave voicemail. I called home numbers, pt not home, left message with sister in law (Rajwinder) for pt to call back. ZAK Schreiber * Telephone Encounter - Shannan Bowser OSA - 03/18/2020 3:10 PM EDT Patient calling in to check on the status of previous message. * Telephone Encounter - Caron Escobar RN - 03/18/2020 11:57 AM EDT Will patient need to repeat procedure? * Telephone Encounter - Tamara Enriquez OSA - 03/18/2020 10:56 AM EDT Patient calling in to check on the status of previous message. Pt will not be home this afternoon, will need to be contacted on her mobile number. [phone] * Telephone Encounter - Janett Squires LPN - 03/17/2020 4:07 PM EDT Lyssa please review below, thanks! * Telephone Encounter - Radha Elias OSA - 03/17/2020 3:08 PM EDT Pt calling in stating that they did not get anything out of her colonoscopy due to her not being empty. Pt is asking if she has to have another one. Pt also states that due to the iron pill she is onher bowel movements are black. Pt is asking if she should go off of the medication or what she should do. Please advise. documented in this encounter Plan of Treatment Upcoming Encounters Date Type Specialty Care Team Description 04/09/2020 Office Visit Family Medicine Rajwinder Carter, [address] [place] [address] 04/14/2020 Office Visit Gastroenterology Lyssa Stout CRNP [address] [facility] [place] [address] 04/29/2020 Nutrition Services Gastroenterology Melissa Omalley RDN [address] [place] [address] 05/06/2020 Office Visit Gynecology Obstetrics Aman Small CNM [address] [place] [address] [phone] 05/28/2020 Office Visit [facility]astroenterology [facility]out CR[facility] [place] [address] [phone] 06/30/2020 Office Visit Hematology Oncology Tono Sanchez MD [address] [facility], [place] [address] [phone] 09/03/2020 Imaging Radiology Health Maintenance Due Date [...] Documents on File Type Date Recorded Patient Pattern Shop Supervisor 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
--- OUTSIDE RECORDS SUMMARY | 2023-05-10 22:34 | External Medical Summary | Summary of Care ---
Author Name Unknown Organization [place] [address] Care Team Providers Care Delivery Tech Name Role Phone Rajwinder Carter Primary Care Provider [phone] Reason for Visit * Reason Comments Advice Encounter Details Date Type Department Care Team Description 03/17/2020 Telephone Gastroenterology, Suzie Sanchez [address] [place] [address] Maritza Fernando MD [address] [place] [address] Advice Allergies Active Allergy Reactions Severity [...] Dosing Unit 5 10/07/2019 Active nystatin (NYSTOP) 299006 UNIT/GM powder Apply topically to affected area 3 times a day. 60 g 1 10/16/2019 Active BD PEN NEEDLE MINI U/F 31G X 5 MMIndications:Type 2 diabetes mellitus with hemoglobin A1c goal of less than 7.0% ([facility]) use with basaglar at bedtime 100 [...] less than 7.0% ([facility]) inject 24 units under the skin at [...] pain 01/24/2012 01/17/2017 Genetic Sleep Disorder Research Other*[id number] 05/13/2011 04/07/2016 Obstructive sleep apnea 01/18/2011 12/27/19 [...] have Coronavirus / COVID-19? No / Unsure 03/18/2020 12:37 PM EDT documented as of this encounter Miscellaneous Notes * Telephone Encounter - Marcelle Rosales OSA - 03/24/2020 3:47 PM EDT Patient calling in to check on the status of previous message. * Telephone Encounter - Lyssa Stout CRNP - 03/23/2020 9:46 AM EDT I haven't received a reply from Dr. Sanchez (Heme/Onc). However pt had been adamant to schedule colonoscopy. pls schedule with 2 day bowel prep,location at [facility], Prefers Dr. Farnsworth (not Tyrese or Abdullahi) [...] she insisted. I will discuss with her Rocket Motor Mechanic before re-scheduling ZAK Schreiber * Telephone Encounter - Cherelle Isabel OSA - 03/19/2020 9:38 AM EDT Reason for patient's call: patient returning call Caller was transferred to [facility] nurse line. * Telephone Encounter - Jimy [...] to be contacted on her mobile number. [phone] * Telephone Encounter - Janett Squires LPN [...] Visit Family Medicine Rajwinder Carter, [address] [facility] [place] [address] 04/29/2020 Nutrition Services Gastroenterology Melissa Omalley RDN [address] [place] [address] 05/06/2020 Office Visit Gynecology Obstetrics Aman Small CNM [address] [facility] [place] [address] 05/28/2020 Office Visit Gastroenterology Lyssa Stout CRNP [address] [facility] [place] [address] [phone] 06/30/2020 Office Visit Hematology Oncology Tono Sanchez MD [address] [place] [address] [phone] 09/03/2020 Imaging Radiology Health Maintenance Due Date [...] on File Type Date Recorded Patient Tank Maker Wood 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
--- OUTSIDE RECORDS SUMMARY | 2023-05-10 22:34 | External Medical Summary | Summary of Care ---
Author Name Unknown Organization [place] [address] Care Team Providers Care Print Production Manager Name Role Phone Rajwinder Lara DO Primary Care Provider [phone] Reason for Visit * Reason Comments eRx-Medication Refill Encounter Details Date Type Department Care Team Description 03/25/2020 [address] [place] [address] Rajwinder Lara DO [address] [place] [address] [phone] Allergies Active Allergy Reactions Severity Noted Date [...] Dosing Unit 5 10/07/2019 Active nystatin (NYSTOP) 626166 UNIT/GM powder Apply topically to affected area [...] AT BEDTIME. 30 Tab 0 03/27/2020 Active cyclobenzaprine (FLEXERIL) 10 MG Tablet [...] dependent 04/08/2019 04/18/2019 [facility] resident 04/08/2019 05/02/2019 Preop examination 02/21/2019 04/04/2019 [...] pain 01/24/2012 01/17/2017 Genetic Sleep Disorder Research Other*[id number] 05/13/2011 04/07/2016 Obstructive sleep apnea 01/18/2011 12/27/19 [...] Telephone Encounter - Rajwinder Lara DO - 03/27/2020 8:38 AM EDT Signed Prescriptions: Disp Refills oxybutynin (DITROPAN) 5 MG Tablet 60 Tab 5 Sig: TAKE 1 TABLET BY MOUTH TWICE DAILY Authorizing Provider: RAJWINDER LARA cyclobenzaprine (FLEXERIL) 10 MG Tablet 30 Tab 0 Sig: TAKE 1 TABLET BY MOUTH EVERY NIGHT AT BEDTIME. Authorizing Provider: RAJWINDER LARA ----- * Telephone Encounter - Radha Joshi formerly [facility] - 03/27/2020 8:19 AM EDT Pending Prescriptions: Disp Refills oxybutynin (DITROPAN) 5 MG Tablet [Pharmac*60 Tab 5 Sig: TAKE 1 TABLET BY MOUTH TWICE DAILY cyclobenzaprine (FLEXERIL) 10 MG Tablet [P*30 Tab 0 Sig: TAKE 1 TABLET BY MOUTH EVERY NIGHT AT BEDTIME. * Telephone Encounter - Radha Joshi RPh - 03/27/2020 8:19 AM EDT Refill pharmacists currently not authorized to approve refills for this class of medication per refill protocol. Please approve if appropriate. Thank you, Radha Joshi, PharmD. Clinical Pharmacist Pharmacy Refill Call Center 03/27/2020, 8:19 AM Pending Prescriptions: Disp Refills oxybutynin (DITROPAN) 5 MG Tablet [Pharmac*60 Tab 5 Sig: TAKE 1 TABLET BY MOUTH TWICE DAILY cyclobenzaprine (FLEXERIL) 10 MG Tablet [P*30 Tab 0 Sig: TAKE 1 TABLET BY MOUTH EVERY NIGHT AT BEDTIME. Last Office/Telemedicine Visit: 03/18/2020 Next Office Visit: 04/09/2020 Scheduled Provider(s): Rajwinder Lara, DO If no future appointments scheduled, and last appointment is greater than a year ago, please schedule patient for a follow-up appointment Last date the medication was ordered: 02/26/20, 01/30/20 Pharmacy: [facility] # [id number] Is this request for a controlled [...] [address] 04/09/2020 Office Visit Family Medicine Rajwinder Lara, [address] [facility] [place] [id number] 04/14/2020 Office Visit Gastroenterology Lyssa Stout CRNP [address] [place] [address] 04/29/2020 Nutrition Services Gastroenterology Melissa Omalley, [place] [address] [place] [id number] 05/06/2020 Office Visit Gynecology Obstetrics Aman Small, CNM [address] [facility] [place] [id number] 05/28/2020 Office Visit Gastroenterology Lyssa Stout CRNP [address] [place] [address] 06/30/2020 Office Visit Hematology Oncology Tono Sanchez MD [address] [place] [address], [place] [address] [phone] 09/03/2020 Imaging Radiology Health Maintenance Due Date [...] on File Type Date Recorded Patient Service Counselor 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
--- OUTSIDE RECORDS SUMMARY | 2023-05-10 22:34 | External Medical Summary | Summary of Care ---
Author Name Unknown Organization [place] [address] Care Team Providers Care Supervisor Logging Name Role Phone JohnbrianRajwinder thacker Primary Care Provider [phone] Reason for Referral * Precert (Routine) Status Reason Specialty Diagnoses / Procedures Referred By Contact Referred To Contact Pending Review Precert Radiology Diagnoses Cirrhosis of liver without ascites, unspecified hepatic cirrhosis type (HCC) Procedures CT LIVER W WO IV CONTRAST - WO ORAL CONTRAST Inocente Gonzalez CRNP [address] [facility] [place] [address] Reason for Visit * Reason Comments Follow Up Iron deficency anemi a, cirrhosis without ascites, IPMN Encounter Details Date Type Department Care Team Description 03/30/2020 Office Visit Gastroenterology, [facility] [address] [place] [address] Inocente Gonzalez CRNP [facility] [place] [address] [phone] Cirrhosis of liver without ascites, unspecified hepatic [...] Dosing Unit 5 10/07/2019 Active nystatin (NYSTOP) 413897 UNIT/GM powder Apply topically to affected area [...] 04/08/2019 04/18/2019 senior care resident 04/08/2019 05/02/2019 Preop examination 02/21/2019 04/04/2019 [...] pain 01/24/2012 01/17/2017 Genetic Sleep Disorder Research Other*[id number] 05/13/2011 04/07/2016 Obstructive sleep apnea 01/18/2011 12/27/19 [...] Family Medicine Rajwinder Carter, DO [address] [facility], [place] [address] [phone] 04/14/2020 Office Visit Gastroenterology Lyssa Stout CRNP [address] [facility] [place] [address] [phone] 04/29/2020 Nutrition Services Gastroenterology Melissa Omalley, SAMANTHA [address] [place] [address] [phone] 05/06/2020 Office Visit Gynecology Obstetrics Aman Small, [place] [address] [place] [id number] 05/28/2020 Office Visit Gastroenterology Lyssa Stout CRNP [address] [facility] [place] [address] [phone] 06/03/2020 Hospital Encounter Surgery [facility]is Hatch, [facility] [place] [address] [phone] 06/03/2020 Surgery Surgery Janis Hatch, [address] [facility] [place] [address] [phone] COLONOSCOPY FLEXIBLE PROXIMAL DIAGNOSTIC 06/30/2020 Office Visit Hematology Oncology Tono Sanchez MD 200 [place] [address] [phone] 09/03/2020 Imaging Radiology Scheduled Orders Name Type [...] on File Type Date Recorded Patient Hand Cementer 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
--- OUTSIDE RECORDS SUMMARY | 2023-05-10 22:34 | External Medical Summary | Summary of Care ---
Author Name Unknown Organization [place] [address] Care Team Providers Care Direct Marketing Analyst Name Role Phone Rajwinder Carter Primary Care Provider [phone] Reason for Visit * Reason Comments Advice Encounter Details Date Type Department Care Team Description 03/17/2020 Telephone Gastroenterology, Suzie Sanchez [address] [place] [address] Maritza Fernando MD [address] [place] [address] Advice Allergies Active Allergy Reactions [...] Dosing Unit 5 10/07/2019 Active nystatin (NYSTOP) 525663 UNIT/GM powder Apply topically to affected area 3 times a day. 60 g 1 10/16/2019 Active BD PEN NEEDLE MINI U/F 31G X 5 MMIndications:Type 2 diabetes mellitus with hemoglobin A1c goal of less than 7.0% ([facility]) use with basaglar at bedtime [...] less than 7.0% ([facility]) inject 24 units under the skin at [...] dependent 04/08/2019 04/18/2019 custodial resident 04/08/2019 05/02/2019 Preop examination 02/21/2019 04/04/2019 [...] pain 01/24/2012 01/17/2017 Genetic Sleep Disorder Research Other*[id number] 05/13/2011 04/07/2016 Obstructive sleep apnea 01/18/2011 12/27/19 [...] schedule with 2 day bowel prep,location at [facility], Prefers Dr. Farnsworth (not Tyrese or Abdullahi) [...] she insisted. I will discuss with her Torpedo Specialist before re-scheduling ZAK Schreiber * Telephone Encounter - Cherelle Isabel OSA - 03/19/2020 9:38 AM EDT Reason for patient's call: patient returning call Caller was transferred to [facility] nurse line. * Telephone Encounter - Jimy [...] to be contacted on her mobile number. [phone] * Telephone Encounter - Janett Squires LPN [...] Visit Family Medicine Rajwinder Carter, [address] [facility] [place] [address] 04/29/2020 Nutrition Services Gastroenterology Melissa Omalley RDN [address] [place] [address] 05/06/2020 Office Visit Gynecology Obstetrics Aman Small CNM [address] [facility] [place] [address] 05/28/2020 Office Visit Gastroenterology Lyssa Stout CRNP [address] [facility] [place] [address] [phone] 06/30/2020 Office Visit Hematology Oncology Tono Sanchez MD [address] [facility] [place] [address] [phone] 09/03/2020 Imaging Radiology Health Maintenance Due Date [...] Documents on File Type Date Recorded Patient Methods Analyst 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
--- OUTSIDE RECORDS SUMMARY | 2023-05-10 22:35 | External Medical Summary | Summary of Care ---
Author Name Unknown Organization [place] [address] Care Team Providers Care Automotive Brake Technician Name Role Phone Rajwinder Carter Primary Care Provider [phone] Reason for Visit * Reason Comments Advice Encounter Details Date Type Department Care Team Description 03/17/2020 Telephone Gastroenterology, Suzie Sanchez [address] [place] [address] Maritza Fernando MD [address] [place] [address] Advice Allergies Active Allergy Reactions Severity Noted Date Comments Penicillins Rash 02/12/2008 documented as of this encounter (statuses as of 03/23/2020) Medications Medication Sig Dispensed Refills Start Date [...] Dosing Unit 5 10/07/2019 Active nystatin (NYSTOP) 855939 UNIT/GM powder Apply topically to affected area 3 times a day. 60 g 1 10/16/2019 Active BD PEN NEEDLE MINI U/F 31G X 5 MMIndications:Type 2 diabetes mellitus with hemoglobin A1c goal of less than 7.0% ([facility]) use with basaglar at bedtime 100 [...] than 7.0% ([facility]) inject 24 units under the skin [...] as of this encounter (statuses as of 03/23/2020) Active Problems Problem Noted Date Iron deficiency [...] as of this encounter (statuses as of 03/23/2020) Resolved Problems Problem Noted Date Resolved Date Chronic hypoxemic respiratory failure 04/08/2019 04/18/2019 Oxygen dependent 04/08/2019 04/18/2019 long term resident 04/08/2019 05/02/2019 Preop examination 02/21/2019 04/04/2019 [...] pain 01/24/2012 01/17/2017 Genetic Sleep Disorder Research Other*[id number] 05/13/2011 04/07/2016 Obstructive sleep apnea 01/18/2011 12/27/19 [...] as of this encounter (statuses as of 03/23/2020) Immunizations Name Administration Dates Next Due HEP [...] schedule with 2 day bowel prep,location at [facility], Prefers Dr. Farnsworth (not Tyrese or [...] she insisted. I will discuss with her Hospitalist Program Director before re-scheduling ZAK Schreiber * Telephone Encounter - Cherelle Isabel OSA - 03/19/2020 9:38 AM EDT Reason for patient's call: patient returning call [facility]. * Telephone Encounter - Jimy Ponce OSA [...] to be contacted on her mobile number. [phone] * Telephone Encounter - Janett Squires LPN [...] Visit Family Medicine Rajwinder Carter, [address], [place] [id number] 04/29/2020 Nutrition Services Gastroenterology Melissa Omalley, SAMANTHA [address] [place] [id number] 05/06/2020 Office Visit Gynecology Obstetrics Aman Small, MAANV [address] [facility] [place] [id number] 05/28/2020 Office Visit Gastroenterology [facility]out [facility] [address] [facility] [address] [phone] 06/30/2020 Office Visit Hematology Oncology Tono Sanchez MD 200 [place] [address] [phone] 09/03/2020 Imaging Radiology Health Maintenance Due Date [...] on File Type Date Recorded Patient Merchandise Execution Leader 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
--- OUTSIDE RECORDS SUMMARY | 2023-05-10 22:35 | External Medical Summary | Summary of Care ---
Author Name Unknown Organization [place] [address] Care Team Providers Care Dye Automation Operator Name Role Phone Rajwinder Carter Primary Care Provider [phone] Reason for Visit * Reason Comments Advice Encounter Details Date Type Department Care Team Description 03/17/2020 Telephone Gastroenterology, Suzie Sanchez [address] [place] [address] Maritza Fernando MD [address] [place] [address] Advice Allergies Active Allergy Reactions Severity Noted Date Comments Penicillins Rash 02/12/2008 documented as of this encounter (statuses as of 03/20/2020) Medications Medication Sig Dispensed Refills Start Date [...] Dosing Unit 5 10/07/2019 Active nystatin (NYSTOP) 543541 UNIT/GM powder Apply topically to affected area 3 times a day. 60 g 1 10/16/2019 Active BD PEN NEEDLE MINI U/F 31G X 5 MMIndications:Type 2 diabetes mellitus with hemoglobin A1c goal of less than 7.0% ([facility]) use with basaglar at bedtime [...] than 7.0% ([facility]) inject 24 units under the [...] as of this encounter (statuses as of 03/20/2020) Active Problems Problem Noted Date Iron deficiency [...] as of this encounter (statuses as of 03/20/2020) Resolved Problems Problem Noted Date Resolved Date Chronic hypoxemic respiratory failure 04/08/2019 04/18/2019 Oxygen dependent 04/08/2019 04/18/2019 half-way resident 04/08/2019 05/02/2019 Preop examination 02/21/2019 04/04/2019 [...] pain 01/24/2012 01/17/2017 Genetic Sleep Disorder Research Other*[id number] 05/13/2011 04/07/2016 Obstructive sleep apnea 01/18/2011 12/27/19 [...] as of this encounter (statuses as of 03/20/2020) Immunizations Name Administration Dates Next Due HEP [...] she insisted. I will discuss with her Mine Geologist before re-scheduling ZAK Schreiber * Telephone Encounter - Cherelle Isabel OSA - 03/19/2020 9:38 AM EDT Reason for patient's call: patient returning call Caller was transferred to [facility] nurse line. * Telephone Encounter - [...] law (Rajwinder) for pt to call back. Lyssa Osborne ZAK Stout * Telephone Encounter - Shannan Bowser OSA [...] to be contacted on her mobile number. [phone] * Telephone Encounter - Janett Squires LPN [...] Family Medicine Rajwinder Carter DO [address] [facility] [place] [id number] 04/29/2020 Nutrition Services Gastroenterology Melissa Omalley, RDN [address] [place] [id number] 05/06/2020 Office Visit Gynecology Obstetrics Aman Small, CNM [address] [place] [id number] 05/28/2020 Office Visit Gastroenterology Lyssa Stout CRNP [address] [facility] [address] [phone] 06/30/2020 Office Visit Hematology Oncology Tono Sanchez MD [address] [place] [address] [phone] 09/03/2020 Imaging Radiology Health Maintenance Due Date [...] Additional history exists Yearly B-12 02/20/2021 02/21/2020, /10/2019, 12/24/2018, Additional history exists DTaP,Tdap,and Td Vaccines [...] Documents on File Type Date Recorded Patient University Registrar 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
--- OUTSIDE RECORDS SUMMARY | 2023-05-10 22:35 | External Medical Summary | Summary of Care ---
Author Name Unknown Organization [place] [address] Care Team Providers Care Claim Attorney Name Role Phone Rajwinder Carter Primary Care Provider [phone] Reason for Visit * Reason Comments Advice Encounter Details Date Type Department Care Team Description 03/17/2020 Telephone Gastroenterology, Suzie Sanchez [address] [place] [address] Maritza Fernando MD [address] [place] [address] Advice Allergies Active Allergy Reactions Severity Noted Date Comments Penicillins Rash 02/12/2008 documented as of this encounter (statuses as of 03/19/2020) Medications Medication Sig Dispensed Refills Start Date [...] Dosing Unit 5 10/07/2019 Active nystatin (NYSTOP) 705714 UNIT/GM powder Apply topically to affected area 3 times a day. 60 g 1 10/16/2019 Active BD PEN NEEDLE MINI U/F 31G X 5 MMIndications:Type 2 diabetes mellitus with hemoglobin A1c goal of less than 7.0% ([facility]) use with basaglar at bedtime [...] 7.0% ([facility]) inject 24 units under the skin [...] as of this encounter (statuses as of 03/19/2020) Active Problems Problem Noted Date Iron deficiency [...] as of this encounter (statuses as of 03/19/2020) Resolved Problems Problem Noted Date Resolved Date [...] pain 01/24/2012 01/17/2017 Genetic Sleep Disorder Research Other*[id number] 05/13/2011 04/07/2016 Obstructive sleep apnea 01/18/2011 12/27/19 [...] as of this encounter (statuses as of 03/19/2020) Immunizations Name Administration Dates Next Due HEP [...] she insisted. I will discuss with her Trade Mark Attorney before re-scheduling ZAK Schreiber * Telephone Encounter - Cherelle Isabel OSA - 03/19/2020 9:38 AM EDT Reason for patient's call: patient returning call Caller was transferred to [facility] nurse line. * Telephone Encounter - Jimy [...] to be contacted on her mobile number. [phone] * Telephone Encounter - Janett Squires LPN [...] Visit Family Medicine [facility]winder Carter[facility] [address] [facility] [address] 04/29/2020 Nutrition Services Gastroenterology Melissa Omalley RDN [address] [place] [address] 05/06/2020 Office Visit Gynecology Obstetrics Aman Small, CNM [address] [place] [address] 05/28/2020 Office Visit Gastroenterology Lyssa Stout CRNP [address] [place] [address] [phone] 06/30/2020 Office Visit Hematology Oncology Tono Sanchez MD [address] [place] [address] [phone] 09/03/2020 Imaging Radiology Health Maintenance Due Date [...] Documents on File Type Date Recorded Patient Media Marketing Coordinator 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
--- OUTSIDE RECORDS SUMMARY | 2023-05-10 22:35 | External Medical Summary | Summary of Care ---
Author Name Unknown Organization [place] [address] Care Team Providers Care Sugar Refinery Supervisor Name Role Phone Rajwinder Carter Primary Care Provider [phone] Reason for Visit * Reason Comments Advice Encounter Details Date Type Department Care Team Description 03/17/2020 Telephone Gastroenterology, Suzie Sanchez [address] [place] [address] Maritza Fernando MD [address] [place] [address] Advice Allergies Active Allergy Reactions Severity [...] Dosing Unit 5 10/07/2019 Active nystatin (NYSTOP) 477766 UNIT/GM powder Apply topically to affected area 3 times a day. 60 g 1 10/16/2019 Active BD PEN NEEDLE MINI U/F 31G X 5 MMIndications:Type 2 diabetes mellitus with hemoglobin A1c goal of less than 7.0% ([facility]) use with basaglar at bedtime [...] less than 7.0% ([facility]) inject 24 units under the [...] dependent 04/08/2019 04/18/2019 correction resident 04/08/2019 05/02/2019 Preop examination 02/21/2019 04/04/2019 [...] pain 01/24/2012 01/17/2017 Genetic Sleep Disorder Research Other*[id number] 05/13/2011 04/07/2016 Obstructive sleep apnea 01/18/2011 12/27/19 [...] she insisted. I will discuss with her Ticket Manager before re-scheduling ZAK Schreiber * Telephone Encounter - Cherelle Isabel OSA - 03/19/2020 9:38 AM EDT Reason for patient's call: patient returning call Caller was transferred to [facility] nurse line. * Telephone Encounter - Jimy Ponce, THAD - 03/18/2020 5:43 PM EDT Pt called [...] to be contacted on her mobile number. [phone] * Telephone Encounter - Janett Squires LPN [...] Family Medicine Rajwinder Carter DO [address] [place] [address] 04/29/2020 Nutrition Services Gastroenterology Melissa Omalley, RDN [address] [place] [id number] 05/06/2020 Office Visit Gynecology Obstetrics Aman Small, CNM [address] [place] [id number] 05/28/2020 Office Visit Gastroenterology Lyssa Stout CRNP [address] [facility] [address] [phone] 06/30/2020 Office Visit Hematology Oncology Tono Sanchez MD 200 [facility] [address] [phone] 09/03/2020 Imaging Radiology Health Maintenance Due Date [...] on File Type Date Recorded Patient Service Greeter 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
--- OUTSIDE RECORDS SUMMARY | 2023-05-10 22:35 | External Medical Summary | Summary of Care ---
Author Name Unknown Organization [place] [address] Care Team Providers Care Retail Manager In Training Name Role Phone Rajwinder Carter Primary Care Provider [phone] Encounter Details Date Type Department Care Team Description 03/17/2020 Procedure Only Endoscopy, [facility] [address] [place] [address] Maritza Fernando MD [address] [facility] [address] [place] [address] Anemia, unspecified type* Allergies Active Allergy Reactions [...] Dosing Unit 5 10/07/2019 Active nystatin (NYSTOP) 561331 UNIT/GM powder Apply topically to affected area 3 times a day. 60 g 1 10/16/2019 Active BD PEN NEEDLE MINI U/F 31G X 5 MMIndications:Type 2 diabetes mellitus with hemoglobin A1c goal of less than 7.0% ([facility]) use with basaglar at bedtime [...] 7.0% ([facility]) inject 24 units under the [...] dependent 04/08/2019 04/18/2019 [facility] resident 04/08/2019 05/02/2019 Preop examination 02/21/2019 04/04/2019 [...] pain 01/24/2012 01/17/2017 Genetic Sleep Disorder Research Other*[id number] 05/13/2011 04/07/2016 Obstructive sleep apnea 01/18/2011 12/27/19 [...] Family Medicine Rajwinder Carter, DO [address] [place] [address] 04/29/2020 Nutrition Services Gastroenterology Melissa Omalley, SAMANTHA [address] [place], [place] [address] 05/06/2020 Office Visit Gynecology Obstetrics Aman Small, MANAV [address] [place] [id number] 05/28/2020 Office Visit Gastroenterology Lyssa Stout CRNP [address] [facility] [address] [phone] 06/30/2020 Office Visit Hematology Oncology Tono Sanchez MD 200 [facility], [place] [address] 09/03/2020 Imaging Radiology Health Maintenance Due Date [...] Procedure Name Priority Date/Time Associated Diagnosis Comments COLONOSCOPY 03/17/2020 documented in this encounter Results * COLONOSCOPY (03/17/2020) Specimen Narrative Performed At documented in this encounter Visit Diagnoses Diagnosis Anemia, unspecified type- Primary documented in this encounter Advance Directives Documents on File Type Date Recorded Patient Wardrobe Coordinator 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
--- OUTSIDE RECORDS SUMMARY | 2023-05-10 22:35 | External Medical Summary | Summary of Care ---
Author Name Unknown Organization [place] [address] Care Team Providers Care Car Seat Upholsterer Name Role Phone Rajwinder Carter Primary Care Provider [phone] Reason for Visit * Reason Comments Advice Encounter Details Date Type Department Care Team Description 03/17/2020 Telephone Gastroenterology, Suzie Sanchez [address] [place] [address] Maritza Fernando MD [address] [place] [address] Advice Allergies Active Allergy Reactions Severity [...] Dosing Unit 5 10/07/2019 Active nystatin (NYSTOP) 279185 UNIT/GM powder Apply topically to affected area [...] less than 7.0% ([facility]) inject 24 units under the skin at [...] pain 01/24/2012 01/17/2017 Genetic Sleep Disorder Research Other*[id number] 05/13/2011 04/07/2016 Obstructive sleep apnea 01/18/2011 12/27/19 [...] encounter Miscellaneous Notes * Telephone Encounter - Imelda Galvan OSA [...] she insisted. I will discuss with her Membership Coordinator before re-scheduling ZAK Schreiber * Telephone Encounter - Cherelle Isabel OSA - 03/19/2020 9:38 AM EDT Reason for patient's call: patient returning call Caller was transferred to [facility] nurse line. * Telephone Encounter - [...] (Rajwinder) for pt to call back. Lyssa S ZAK Stout * Telephone Encounter - Shannan [...] to be contacted on her mobile number. [phone] * Telephone Encounter - Janett Squires LPN [...] Family Medicine Rajwinder Carter, DO [address] [place] [address] [phone] 04/29/2020 Nutrition Services Gastroenterology Melissa Omalley, RDN [address] [place] [address] [phone] 05/06/2020 Office Visit Gynecology Obstetrics Aman Small, CNM [address] [place] [id number] 05/28/2020 Office Visit Gastroenterology Lyssa Stout, ZAK [address] [place] [address] [phone] 06/30/2020 Office Visit Hematology Oncology Tono Sanchez MD 200 [place] [address] [phone] 09/03/2020 Imaging Radiology Health Maintenance Due Date [...] Documents on File Type Date Recorded Patient Clerical Production Worker 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
--- OUTSIDE RECORDS SUMMARY | 2023-05-10 22:35 | External Medical Summary | Summary of Care ---
Author Name Unknown Organization [place] [address] Care Team Providers Care Marketing And Outreach Coordinator Name Role Phone Rajwinder Carter Primary Care Provider [phone] Reason for Visit * Reason Comments Advice Encounter Details Date Type Department Care Team Description 03/17/2020 Telephone Gastroenterology, Suzie Sanchez [address] [place] [address] Maritza Fernando MD [address] [place] [address] Advice Allergies Active Allergy Reactions Severity [...] Dosing Unit 5 10/07/2019 Active nystatin (NYSTOP) 651601 UNIT/GM powder Apply topically to affected area 3 times a day. 60 g 1 10/16/2019 Active BD PEN NEEDLE MINI U/F 31G X 5 MMIndications:Type 2 diabetes mellitus with hemoglobin A1c goal of less than 7.0% ([facility]) use with basaglar at bedtime 100 Each [...] 7.0% ([facility]) inject 24 units under the skin at [...] pain 01/24/2012 01/17/2017 Genetic Sleep Disorder Research Other*[id number] 05/13/2011 04/07/2016 Obstructive sleep apnea 01/18/2011 12/27/19 [...] encounter Miscellaneous Notes * Telephone Encounter - Cherelle Isabel OSA - 03/19/2020 9:38 AM EDT Reason for patient's call: patient returning call Caller was transferred to [facility] nurse line. * Telephone Encounter [...] to be contacted on her mobile number. [phone] * Telephone Encounter - Janett Squires LPN [...] Visit Family Medicine Rajwinder Carter, [address] [facility] [place] [address] 04/29/2020 Nutrition Services Gastroenterology Melissa Omalley RDN [address] [place] [address] 05/06/2020 Office Visit Gynecology Obstetrics Aman Small CNM [address] [facility] [place] [address] 05/28/2020 Office Visit Gastroenterology Lyssa Stout CRNP [address] [facility] [place] [address] [phone] 06/30/2020 Office Visit Hematology Oncology Tono Sanchez MD 200 [place] [address] [phone] 09/03/2020 Imaging Radiology Health Maintenance Due Date [...] Documents on File Type Date Recorded Patient Tunnel Heading Supervisor 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
--- OUTSIDE RECORDS SUMMARY | 2023-05-10 22:35 | External Medical Summary | Summary of Care ---
Author Name Unknown Organization [place] [address] Care Team Providers Care Design Center Consultant Name Role Phone Rajwinder Carter Primary Care Provider [phone] Reason for Visit * Reason Comments Advice Encounter Details Date Type Department Care Team Description 03/17/2020 Telephone Gastroenterology, Suzie Sanchez [address] [place] [address] Maritza Fernando MD [address] [place] [address] Advice Allergies Active Allergy Reactions Severity [...] Dosing Unit 5 10/07/2019 Active nystatin (NYSTOP) 703882 UNIT/GM powder Apply topically to affected area 3 times a day. 60 g 1 10/16/2019 Active BD PEN NEEDLE MINI U/F 31G X 5 MMIndications:Type 2 diabetes mellitus with hemoglobin A1c goal of less than 7.0% ([facility]) use with basaglar at bedtime 100 [...] than 7.0% ([facility]) inject 24 units under the skin [...] dependent 04/08/2019 04/18/2019 [facility] resident 04/08/2019 05/02/2019 Preop examination 02/21/2019 04/04/2019 [...] pain 01/24/2012 01/17/2017 Genetic Sleep Disorder Research Other*[id number] 05/13/2011 04/07/2016 Obstructive sleep apnea 01/18/2011 12/27/19 [...] patient returning call Caller was transferred to [facility] nurse line. * Telephone Encounter [...] to be contacted on her mobile number. [phone] * Telephone Encounter - Janett Squires LPN [...] Visit Family Medicine Rajwinder Carter, [address] [facility] [place] [address] 04/29/2020 Nutrition Services Gastroenterology Melissa Omalley RDN [address] [place] [address] 05/06/2020 Office Visit Gynecology Obstetrics Aman Small CNM [address] [facility] [place] [address] 05/28/2020 Office Visit Gastroenterology Lyssa Stout CRNP [address] [facility] [place] [address] [phone] 06/30/2020 Office Visit Hematology Oncology Tono Sanchez MD 200 [place] [address] [phone] 09/03/2020 Imaging Radiology Health Maintenance Due Date [...] Documents on File Type Date Recorded Patient Curve Cleaner 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
--- OUTSIDE RECORDS SUMMARY | 2023-05-10 22:35 | External Medical Summary | Summary of Care ---
Author Name Unknown Organization [place] [address] Care Team Providers Care Central Office Mechanic Name Role Phone Rajwinder Carter Primary Care Provider [phone] Reason for Visit * Reason Comments Advice Encounter Details Date Type Department Care Team Description 03/17/2020 Telephone Gastroenterology, Suzie Sanchez [address] [place] [address] Maritza Fernando MD [address] [place] [address] Advice Allergies Active Allergy Reactions Severity [...] Dosing Unit 5 10/07/2019 Active nystatin (NYSTOP) 223044 UNIT/GM powder Apply topically to affected area 3 times a day. 60 g 1 10/16/2019 Active BD PEN NEEDLE MINI U/F 31G X 5 MMIndications:Type 2 diabetes mellitus with hemoglobin A1c goal of less than 7.0% ([facility]) use with basaglar at bedtime 100 [...] less than 7.0% ([facility]) inject 24 units under the skin [...] pain 01/24/2012 01/17/2017 Genetic Sleep Disorder Research Other*[id number] 05/13/2011 04/07/2016 Obstructive sleep apnea 01/18/2011 12/27/19 [...] she insisted. I will discuss with her Independent Freight Agent before re-scheduling ZAK Schreiber * Telephone Encounter - Cherelle Isabel OSA - 03/19/2020 9:38 AM EDT Reason for patient's call: patient returning call Caller was transferred to [facility] nurse line. * Telephone Encounter - [...] to be contacted on her mobile number. [phone] * Telephone Encounter - Janett Squires LPN [...] Family Medicine Rajwinder Carter DO [address] [place] [address] 04/29/2020 Nutrition Services Gastroenterology Melissa Omalley, RDN [address] [place] [id number] 05/06/2020 Office Visit Gynecology Obstetrics Aman Small, CNM [address] [place] [id number] 05/28/2020 Office Visit Gastroenterology Lyssa Stout CRNP [address] [facility] [address] [phone] 06/30/2020 Office Visit Hematology Oncology Tono Sanchez MD 200 [place] [address] [phone] 09/03/2020 Imaging Radiology Health Maintenance Due Date [...] on File Type Date Recorded Patient Home Specialist 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
--- OUTSIDE RECORDS SUMMARY | 2023-05-10 22:35 | External Medical Summary | Summary of Care ---
Author Name Unknown Organization [place] [address] Care Team Providers Care Washing Machine Loader And Puller Name Role Phone Rajwinder Carter Primary Care Provider [phone] Reason for Visit * Reason Comments Advice Encounter Details Date Type Department Care Team Description 03/17/2020 Telephone Gastroenterology, Suzie Sanchez [address] [place] [address] Mairtza Fernando MD [address] [place] [address] Advice Allergies Active Allergy Reactions [...] Dosing Unit 5 10/07/2019 Active nystatin (NYSTOP) 314482 UNIT/GM powder Apply topically to affected area 3 times a day. 60 g 1 10/16/2019 Active BD PEN NEEDLE MINI U/F 31G X 5 MMIndications:Type 2 diabetes mellitus with hemoglobin A1c goal of less than 7.0% ([facility]) use with basaglar at bedtime 100 [...] 7.0% ([facility]) inject 24 units under the skin [...] pain 01/24/2012 01/17/2017 Genetic Sleep Disorder Research Other*[id number] 05/13/2011 04/07/2016 Obstructive sleep apnea 01/18/2011 12/27/19 [...] schedule with 2 day bowel prep,location at [facility] ZAK Schreiber * Telephone Encounter - Ramez [...] she insisted. I will discuss with her High School English Teacher before re-scheduling ZAK Schreiber * Telephone Encounter - Cherelle Isabel OSA - 03/19/2020 9:38 AM EDT Reason for patient's call: patient returning call Caller was transferred to [facility]. * Telephone Encounter - Jimy Ponce, THAD [...] to be contacted on her mobile number. [phone] * Telephone Encounter - Janett Squires LPN [...] Office Visit Family Medicine Rajwinder Carter, [address] [place], [place] [phone] 04/29/2020 Nutrition Services Gastroenterology Melissa Omalley, SAMANTHA [address] [place] [id number] 05/06/2020 Office Visit Gynecology Obstetrics Aman Small, MANAV [address] [facility] [place] [id number] 05/28/2020 Office Visit Gastroenterology Lyssa Stout CRNP [address] [facility] [address] [phone] 06/30/2020 Office Visit Hematology Oncology Tono Sanchez MD 200 [place] [address] [phone] 09/03/2020 Imaging Radiology Health Maintenance Due Date [...] on File Type Date Recorded Patient Sound Equipment Mechanic 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
--- OUTSIDE RECORDS SUMMARY | 2023-05-10 22:36 | External Medical Summary | Summary of Care ---
Author Name Unknown Organization [place] [address] Care Team Providers Care Qi Specialist Name Role Phone Rajwinder Carter Primary Care Provider [phone] Reason for Visit * Reason Comments Advice Encounter Details Date Type Department Care Team Description 03/17/2020 Telephone Gastroenterology, Suzie Sanchez [address] [place] [address] Maritza Fernando MD [address] [place] [address] Advice Allergies Active Allergy Reactions [...] Dosing Unit 5 10/07/2019 Active nystatin (NYSTOP) 774429 UNIT/GM powder Apply topically to affected area 3 times a day. 60 g 1 10/16/2019 Active BD PEN NEEDLE MINI U/F 31G X 5 MMIndications:Type 2 diabetes mellitus with hemoglobin A1c goal of less than 7.0% ([facility]) use with basaglar at bedtime 100 Each [...] than 7.0% ([facility]) inject 24 units under the skin at [...] pain 01/24/2012 01/17/2017 Genetic Sleep Disorder Research Other*[id number] 05/13/2011 04/07/2016 Obstructive sleep apnea 01/18/2011 12/27/19 [...] encounter Miscellaneous Notes * Telephone Encounter - Jimy Ponce OSA [...] to be contacted on her mobile number. [phone] * Telephone Encounter - Janett Squires LPN [...] Visit Family Medicine Rajwinder Carter DO [address] [place], [place] [id number] 04/29/2020 Nutrition Services Gastroenterology Melissa Omalley, RDN [address] [place] [id number] 05/06/2020 Office Visit Gynecology Obstetrics Aman Small, MANAV 400 [facility] [place] [id number] 05/28/2020 Office Visit Gastroenterology Lyssa Stout CRNP [address] [facility] [address] [phone] 06/30/2020 Office Visit Hematology Oncology Tono Sanchez MD 200 [place] [address] [phone] 09/03/2020 Imaging Radiology Health Maintenance Due Date [...] Documents on File Type Date Recorded Patient Shactor Helper 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
--- OUTSIDE RECORDS SUMMARY | 2023-05-10 22:36 | External Medical Summary | Summary of Care ---
Author Name Unknown Organization [facility] [place] [address] Care Team Providers Care Guide Escort Name Role Phone Rajwinder Carter DO Primary Care Provider [phone] Reason for Visit * Reason Comments Advice Encounter Details Date Type Department Care Team Description 03/16/2020 Telephone [facility] [address] [place] [address] Rajwinder Carter DO [address] [place] [address] Advice Allergies Active Allergy Reactions Severity Noted Date Comments Penicillins Rash 02/12/2008 documented as of this encounter (statuses as of 03/16/2020) Medications Medication Sig Dispensed Refills Start Date [...] Dosing Unit 5 10/07/2019 Active nystatin (NYSTOP) 396156 UNIT/GM powder Apply topically to affected area 3 times a day. 60 g 1 10/16/2019 Active BD PEN NEEDLE MINI U/F 31G X 5 MMIndications:Type 2 diabetes mellitus with hemoglobin A1c goal of less than 7.0% ([facility]) use with basaglar at bedtime 100 Each [...] ([facility]) inject 24 units under the skin at [...] as of this encounter (statuses as of 03/16/2020) Active Problems Problem Noted Date Iron deficiency [...] as of this encounter (statuses as of 03/16/2020) Resolved Problems Problem Noted Date Resolved Date [...] pain 01/24/2012 01/17/2017 Genetic Sleep Disorder Research Other*[id number] 05/13/2011 04/07/2016 Obstructive sleep apnea 01/18/2011 12/27/19 [...] as of this encounter (statuses as of 03/16/2020) Immunizations Name Administration Dates Next Due HEP [...] have Coronavirus / COVID-19? No / Unsure 03/15/2020 1:01 PM EDT documented as of this encounter Miscellaneous Notes * Telephone Encounter - Janett Carranza OSA - 03/16/2020 10:11 AM EDT Patient has been guided on picking up instructions from our [place] Location. * Telephone Encounter - Alberta Shaw OSA - 03/16/2020 9:50 AM EDT Patient calling in stating that Jose Macdonald called her and told her that she's scheduled on the . Patient does not have any colonoscopy prep instructions. Patient is very confused. Please call and advise. documented in this encounter Plan of Treatment Upcoming Encounters Date Type Specialty Care Team Description 03/17/2020 Procedure Only Endoscopy Maritza Fernando MD [address] [place] [address] [phone] 03/18/2020 Office Visit Family Medicine Rajwinder Carter DO [address] [place] [address] [phone] 04/09/2020 Office Visit [facility] Rajwinder Lopez DO [address] [facility] [address] [phone] 04/29/2020 Nutrition Services Gastroenterology Melissa Omalley RDN [address] [place] [address] [phone] 05/06/2020 Office Visit Gynecology Obstetrics Aman Small, MANAV [address] [place] [address] [phone] 05/28/2020 Office Visit Gastroenterology Lyssa Stout CRNP [address] [address] [phone] 06/30/2020 Office Visit Hematology Oncology Tono Sanchez MD 200 [facility] [place] [address] [phone] 09/03/2020 Imaging Radiology Health Maintenance Due Date [...] Documents on File Type Date Recorded Patient Marker Hand 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
--- OUTSIDE RECORDS SUMMARY | 2023-05-10 22:36 | External Medical Summary | Summary of Care ---
Author Name Unknown Organization [place] [address] Care Team Providers Care Womens Health Nurse Practitioner Name Role Phone Rajwinder Carter DO Primary Care Provider [phone] Encounter Details Date Type Department Care Team Description 03/17/2020 Scan Encounter Unspecified Department <No scans attached> Allergies Active Allergy Reactions Severity Noted Date Comments Penicillins Rash 02/12/2008 documented as of this encounter (statuses as of 03/18/2020) Medications Medication Sig Dispensed Refills Start Date [...] Dosing Unit 5 10/07/2019 Active nystatin (NYSTOP) 156781 UNIT/GM powder Apply topically to affected area [...] as of this encounter (statuses as of 03/18/2020) Active Problems Problem Noted Date Iron deficiency [...] as of this encounter (statuses as of 03/18/2020) Resolved Problems Problem Noted Date Resolved Date [...] pain 01/24/2012 01/17/2017 Genetic Sleep Disorder Research Other*[id number] 05/13/2011 04/07/2016 Obstructive sleep apnea 01/18/2011 12/27/19 [...] as of this encounter (statuses as of 03/18/2020) Immunizations Name Administration Dates Next Due HEP [...] have Coronavirus / COVID-19? Unable to assess 03/17/2020 7:37 AM EDT documented as of this encounter Plan of Treatment Upcoming Encounters Date Type Specialty Care Team Description 03/18/2020 Office Visit Family Medicine Rajwinder Carter, DO [address] [place], [place] [phone] 04/09/2020 Office Visit Family [facility] Rajwinder Carter, DO [address] [facility] [place] [id number] 04/29/2020 Nutrition Services Gastroenterology Melissa Omalley RDN 310 [facility] 230 [place] [id number] 05/06/2020 Office Visit Gynecology Obstetrics Aman Small, MANAV 400 [facility] [id number] 05/28/2020 Office Visit Gastroenterology Lyssa Stout CRNP [address] [place] [address] 06/30/2020 Office Visit Hematology Oncology Tono Sanchez MD 200 [place] [address] [phone] 09/03/2020 Imaging Radiology Health Maintenance Due Date [...] on File Type Date Recorded Patient Core Cutter 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
--- OUTSIDE RECORDS SUMMARY | 2023-05-10 22:36 | External Medical Summary | Summary of Care ---
Author Name Unknown Organization [place] [address] Care Team Providers Care Learning And Development Consultant Name Role Phone Rajwinder Carter Primary Care Provider [phone] Reason for Visit * Reason Comments Advice Encounter Details Date Type Department Care Team Description 03/17/2020 Telephone Gastroenterology, Suzie Sanchez [address] [place] [address] Maritza Fernando MD [address] [place] [address] Advice Allergies Active Allergy Reactions [...] Dosing Unit 5 10/07/2019 Active nystatin (NYSTOP) 325842 UNIT/GM powder Apply topically to affected area 3 times a day. 60 g 1 10/16/2019 Active BD PEN NEEDLE MINI U/F 31G X 5 MMIndications:Type 2 diabetes mellitus with hemoglobin A1c goal of less than 7.0% ([facility]) use with basaglar at bedtime [...] 7.0% ([facility]) inject 24 units under the [...] pain 01/24/2012 01/17/2017 Genetic Sleep Disorder Research Other*[id number] 05/13/2011 04/07/2016 Obstructive sleep apnea 01/18/2011 12/27/19 [...] to be contacted on her mobile number. [phone] * Telephone Encounter - Janett Squires LPN [...] Family Medicine Rajwinder Carter DO [address] [place] [address] 04/29/2020 Nutrition Services Gastroenterology Melissa Omalley, LU[place] [address] [employer] [place] [employer] [place] [id number] 05/06/2020 Office Visit Gynecology Obstetrics Aman Small, MANAV [address] [employer] [place] [employer] [place] [id number] 05/28/2020 Office Visit Gastroenterology Lyssa Stout CRNP [address] [place] [address] [phone] 06/30/2020 Office Visit Hematology Oncology Tono Sanchez MD 200 [facility], [place] [address] 09/03/2020 Imaging Radiology Health Maintenance Due Date [...]
--- OUTSIDE RECORDS SUMMARY | 2023-05-10 22:36 | External Medical Summary | Summary of Care ---
Author Name Unknown Organization [place] [address] Care Team Providers Care Cashier Self Service Gasoline Name Role Phone Rajwinder Carter Primary Care Provider [phone] Reason for Visit * Reason Comments Advice Encounter Details Date Type Department Care Team Description 03/17/2020 Telephone Gastroenterology, Suzie Sanchez [address] [place] [address] Maritza Fernando MD [address] [place] [address] Advice Allergies Active Allergy Reactions Severity [...] Dosing Unit 5 10/07/2019 Active nystatin (NYSTOP) 262363 UNIT/GM powder Apply topically to affected area 3 times a day. 60 g 1 10/16/2019 Active BD PEN NEEDLE MINI U/F 31G X 5 MMIndications:Type 2 diabetes mellitus with hemoglobin A1c goal of less than 7.0% ([facility]) use with basaglar at bedtime 100 Each [...] [facility]) inject 24 units under the skin at [...] pain 01/24/2012 01/17/2017 Genetic Sleep Disorder Research Other*[id number] 05/13/2011 04/07/2016 Obstructive sleep apnea 01/18/2011 12/27/19 [...] to be contacted on her mobile number. [phone] * Telephone Encounter - Janett Squires LPN [...] Visit Family Medicine Rajwinder Carter DO [address] [place], [place] [phone] 04/29/2020 Nutrition Services Gastroenterology Meilssa Omalley, RDN [address] [place] [id number] 05/06/2020 Office Visit Gynecology Obstetrics Aman Small, MANAV 400 [facility] [place] [id number] 05/28/2020 Office Visit Gastroenterology Lyssa Stout CRNP 132 [facility] [address] [phone] 06/30/2020 Office Visit Hematology Oncology Tono Sanchez MD 200 [place] [address] [phone] 09/03/2020 Imaging Radiology Health Maintenance Due Date [...] Documents on File Type Date Recorded Patient Order Expediter 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
--- OUTSIDE RECORDS SUMMARY | 2023-05-10 22:37 | External Medical Summary | Summary of Care ---
Author Name Unknown Organization [place] [address] Care Team Providers Care Paper Processing Machine Helper Name Role Phone Rajwinder Carter DO Primary Care Provider [phone] Encounter Details Date Type Department Care Team Description 03/07/2020 Scan Encounter Unspecified Department <No scans attached> Allergies Active Allergy Reactions Severity Noted Date Comments Penicillins Rash 02/12/2008 documented as of this encounter (statuses as of 03/09/2020) Medications Medication Sig Dispensed Refills Start Date [...] Dosing Unit 5 10/07/2019 Active nystatin (NYSTOP) 995265 UNIT/GM powder Apply topically to affected area [...] as of this encounter (statuses as of 03/09/2020) Active Problems Problem Noted Date Iron deficiency [...] as of this encounter (statuses as of 03/09/2020) Resolved Problems Problem Noted Date Resolved Date [...] pain 01/24/2012 01/17/2017 Genetic Sleep Disorder Research Other*[id number] 05/13/2011 04/07/2016 Obstructive sleep apnea 01/18/2011 12/27/19 [...] as of this encounter (statuses as of 03/09/2020) Immunizations Name Administration Dates Next Due HEP [...] have Coronavirus / COVID-19? No / Unsure 03/05/2020 1:02 PM EDT documented as of this encounter Plan of Treatment Upcoming Encounters Date Type Specialty Care Team Description 03/11/2020 Imaging Radiology 03/15/2020 Pandemic Screening Ancillary Fernandes, Pre Surgical Covid Testing [place] [address] [place] [address] 03/17/2020 Procedure Only Endoscopy Maritza Fernando MD [address] [place] [id number] 04/09/2020 Office Visit Family Medicine Rajwinder Carter DO [address] [place], [place] [address] 04/29/2020 Nutrition Services Gastroenterology Melissa Omalley RDN [address] [facility] [id number] 05/06/2020 Office Visit Gynecology Obstetrics Aman Small, BOOM [address] [place] [id number] 05/28/2020 Office Visit Gastroenterology Lyssa Stout CRNP [address] [place] [address] [phone] 06/30/2020 Office Visit Hematology Oncology Tono Sanchez MD [address] [place] [address] [phone] 09/03/2020 Imaging Radiology Health Maintenance Due Date Last Done Comments Zoster Vaccines (2 of 3) 02/03/2016 12/09/2015 DIABETES-EYE EXAM 06/12/2019 06/12/2018, , 06/12/2018, Additional history exists PAP SMEAR-EVERY 3 YRS,AGES 21-65 10/10/2019 10/10/2016, 07/02/2014, 04/16/2013, Additional history exists DIABETES-URINE MICROALBUMIN EVERY 12 MONTHS 01/12/2020 01/11/2019, 08/24/2018, 07/19/2018, Additional history exists DIABETES-HGBA1C EVERY 6 MONTHS [...] (6 to 64 Years) Completed 05/02/2019, 06/01/2010 Influenza Vaccine (FLU shot) Completed , 06/05/2019, 05/16/2018, Additional history exists MENINGOCOCCAL (MENACTRA/MENVEO) Aged Out No longer eligible based on patient's age to complete this topic documented as of this encounter Implants Not on filedocumented as of this encounter Advance Directives Documents on File Type Date Recorded 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
--- OUTSIDE RECORDS SUMMARY | 2023-05-10 22:37 | External Medical Summary ---
Author Name Unknown Address [facility] [place] [address] Phone Organization K01:[place] [address] [place] [address] Laboratory Report Ordering Provider Test Date Status SEBASTIÁN KOEHLER 03/10/2020 14:40:00 Final Observation Date Value Abnormality Reference (Units ) Status BUN 03/11/2020 00:15 9 6-20 (mg/dL) Final Performing Location [address] [address]
--- OUTSIDE RECORDS SUMMARY | 2023-05-10 22:37 | External Medical Summary ---
Author Name Unknown Address 132 [facility] [place] [address] Phone Organization K0G:[facility] [employer] [address] [facility] [place] [address] Laboratory Report Ordering Provider Test Date Status AMBERLY PACHECO 03/15/2020 12:06:00 Final Observation Date Value Abnormality Reference (Units ) Status SPECIMEN SOURCE 03/15/2020 13:29 NASAL TURBINATE Final SARS-CoV-2 ORF1ab region result 03/16/2020 15:54 NEGATIVE NEG Final Performing Location [facility] [employer] [address] [facility] [place] [address]
--- OUTSIDE RECORDS SUMMARY | 2023-05-10 22:37 | External Medical Summary | Summary of Care ---
Author Name Unknown Organization [facility] Address [facility] [place] [address] Care Team Providers Care Counter Cutter Name Role Phone Rajwinder Carter DO Primary Care Provider [phone] Reason for Visit * Reason Comments Appointment ER follow up Encounter Details Date Type Department Care Team Description 03/09/2020 Telephone [facility] [address] [place] [address] Rajwinder Carter DO [address] [place] [address] [phone] Appointment (ER follow up) Allergies Active Allergy Reactions Severity Noted Date Comments Penicillins Rash 02/12/2008 documented as of this encounter (statuses as of 03/10/2020) Medications Medication Sig Dispensed Refills Start Date [...] Dosing Unit 5 10/07/2019 Active nystatin (NYSTOP) 330426 UNIT/GM powder Apply topically to affected area 3 times a day. 60 g 1 10/16/2019 Active BD PEN NEEDLE MINI U/F 31G X 5 MMIndications:Type 2 diabetes mellitus with hemoglobin A1c goal of less than 7.0% ([facility]) use with basaglar at bedtime 100 [...] 7.0% ([facility]) inject 24 units under the skin [...] as of this encounter (statuses as of 03/10/2020) Active Problems Problem Noted Date Iron deficiency [...] as of this encounter (statuses as of 03/10/2020) Resolved Problems Problem Noted Date Resolved Date [...] pain 01/24/2012 01/17/2017 Genetic Sleep Disorder Research Other*[id number] 05/13/2011 04/07/2016 Obstructive sleep apnea 01/18/2011 12/27/19 [...] as of this encounter (statuses as of 03/10/2020) Immunizations Name Administration Dates Next Due HEP [...] Telephone Encounter - Talita Caballero OSA - 03/10/2020 11:29 AM EDT LMOM 03/10 RMG * Telephone Encounter - Josselin Gaspar LPN - 03/09/2020 4:33 PM EDT Per call details: What have you done or taken for this problem? Lab work, ct scan- unable to remember if they did anyother testing Additional Comment(s) Additional Comments: Pt calling in because she was at the [facility] on 03/05 and 03/07. Pt states that she had pain on her side that warranted her visits. Pt states she is now aware she has 2 kidneys stone but all the other testing came back normal. Pt was told to follow emmanuelp with her PCP office. Please review and advise pt at [phone] * Telephone Encounter - Janett Triana OSA - 03/09/2020 10:06 AM EDT Patient was seen in ED. Please see call details. documented in this encounter Plan of Treatment Upcoming Encounters Date Type Specialty Care Team Description 03/11/2020 Imaging Radiology 03/15/2020 Pandemic Screening Ancillary Fernandes, Pre Surgical Covid Testing [facility]au [address] [place] [address] 03/17/2020 Procedure Only Endoscopy Maritza Fernando MD [address] [place] [id number] 04/09/2020 Office Visit Family Medicine Rajwinder Carter DO [address] [facility], [place] [address] 04/29/2020 Nutrition Services Gastroenterology Melissa Omalley, RDN [address] [place] [id number] 05/06/2020 Office Visit Gynecology Obstetrics Aman Small, CNM [address] [place] [id number] 05/28/2020 Office Visit Gastroenterology Lyssa Stout CRNP [address] [facility], [place] [address] [phone] 06/30/2020 Office Visit Hematology Oncology Tono Sanchez MD [address] [facility] [address] [phone] 09/03/2020 Imaging Radiology Health Maintenance Due Date [...] on File Type Date Recorded Patient Vp Data 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
--- OUTSIDE RECORDS SUMMARY | 2023-05-10 22:37 | External Medical Summary | Summary of Care ---
Author Name Unknown Organization [facility] Address [facility] [place] [address] Care Team Providers Care Deputy Sheriff Civil Division Name Role Phone Rajwinder Carter DO Primary Care Provider [phone] Reason for Visit * Reason Comments Appointment ER follow up Encounter Details Date Type Department Care Team Description 03/09/2020 Telephone [facility] [address] [place] [address] Rajwinder Carter DO [address] [place] [address] [phone] Appointment (ER follow up) Allergies Active Allergy [...] Dosing Unit 5 10/07/2019 Active nystatin (NYSTOP) 950967 UNIT/GM powder Apply topically to affected area 3 times a day. 60 g 1 10/16/2019 Active BD PEN NEEDLE MINI U/F 31G X 5 MMIndications:Type 2 diabetes mellitus with hemoglobin A1c goal of less than 7.0% ([facility]) use with basaglar at bedtime [...] less than 7.0% ([facility]) inject 24 units under the [...] pain 01/24/2012 01/17/2017 Genetic Sleep Disorder Research Other*[id number] 05/13/2011 04/07/2016 Obstructive sleep apnea 01/18/2011 12/27/19 [...] have Coronavirus / COVID-19? No / Unsure 03/10/2020 2:41 PM EDT documented as of this encounter Miscellaneous Notes * Telephone Encounter - Talita Caballero OSA - 03/10/2020 2:50 PM EDT Appt is scheduled 03/18 * Telephone Encounter - Talita Caballero OSA - 03/10/2020 11:29 AM EDT LMOM 03/10 RMG * Telephone Encounter - Josselin Gaspar LPN - 03/09/2020 4:33 PM EDT Per call details: What have you done or taken for this problem? Lab work, ct scan- unable to remember if they did anyother testing Additional Comment(s) Additional Comments: Pt calling in because she was at the [facility] ER on 03/05 and 03/07. Pt states that she had pain on her side that warranted her visits. Pt states she is now aware she has 2 kidneys stone but all the other testing came back normal. Pt was told to follow u,p with her PCP office. Please review and advise pt at [phone] * Telephone Encounter - Janett Triana OSA - 03/09/2020 10:06 AM EDT Patient was seen in ED. Please see call details. documented in this encounter Plan of Treatment Upcoming Encounters Date Type Specialty Care Team Description 03/15/2020 Pandemic Screening Ancillary Fernandes, Pre Surgical Covid Testing [address] [place] [address] 03/17/2020 Procedure Only Endoscopy Maritza Fernando MD [address] [facility] [place] [phone] 03/18/2020 [facility] [address] [place] [facility] [address] [phone] 04/09/2020 [facility] [address] [place] [facility] [address] [phone] 04/29/2020 Nutrition Services Gastroenterology Melissa Omalley RDN [address] [place] [id number] 05/06/2020 Office Visit Gynecology Obstetrics Aman Small, MANAV [address] [place] [id number] 05/28/2020 Office Visit Gastroenterology Lyssa Stout CRNP [address] [place] [address] [phone] 06/30/2020 Office Visit Hematology Oncology Tono Sanchez MD [address] [place] [address] [phone] 09/03/2020 Imaging Radiology Health Maintenance Due Date [...] Documents on File Type Date Recorded 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
--- OUTSIDE RECORDS SUMMARY | 2023-05-10 22:37 | External Medical Summary ---
Author Name Unknown Address [facility] [place] [address] Phone Organization K[address]:[place] [address] [place] [id number] Laboratory Report Ordering Provider Test Date Status SEBASTIÁN KOEHLER 03/10/2020 14:40:00 Final Observation Date Value Abnormality Reference (Units ) Status Creatinine 03/11/2020 00:15 0.6 0.5-1.0 (mg/ dL) Final E Glom Filt Rate 03/11/2020 00:15 >60.0 >60 Final Performing Location [facility] [address] [id number]
--- OUTSIDE RECORDS SUMMARY | 2023-05-10 22:37 | External Medical Summary | Summary of Care ---
Author Name Unknown Organization [facility] Address [facility] [place] [address] Care Team Providers Care Bill Adjuster Name Role Phone JohnbrianRajwinder thacker Primary Care Provider [phone] Encounter Details Date Type Department Care Team Description 03/12/2020 Telephone [facility] [address] [place] [address] Brianne Pal PA-C [address] [place] [address] Allergies Active Allergy Reactions Severity Noted Date Comments Penicillins Rash 02/12/2008 documented as of this encounter (statuses as of 03/12/2020) Medications Medication Sig Dispensed Refills Start Date [...] Dosing Unit 5 10/07/2019 Active nystatin (NYSTOP) 686651 UNIT/GM powder Apply topically to affected area [...] as of this encounter (statuses as of 03/12/2020) Active Problems Problem Noted Date Iron deficiency [...] as of this encounter (statuses as of 03/12/2020) Resolved Problems Problem Noted Date Resolved Date [...] pain 01/24/2012 01/17/2017 Genetic Sleep Disorder Research Other*[id number] 05/13/2011 04/07/2016 Obstructive sleep apnea 01/18/2011 12/27/19 [...] as of this encounter (statuses as of 03/12/2020) Immunizations Name Administration Dates Next Due HEP [...] Telephone Encounter - Keyonna Barillas LPN - 03/12/2020 4:58 PM EDT Attempted to call patient to relate message and instructions below. Please see Brianne Pal PA-C note. No answer. Left a message to return call. 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 Symptoms of this can include vision problems so it is possible that this is the cause of her doublevision. If it is, there is not likely anything that can be done for it from a medical standpoint. We could have her seen neurology if she likes Brianne Pal PA-C documented in this encounter Plan of Treatment Upcoming Encounters Date Type Specialty Care Team Description 03/15/2020 Pandemic Screening Ancillary Fernandes, Pre Surgical Covid Testing [facility] [address] [place] [address] 03/17/2020 Procedure Only Endoscopy Maritza Fernando MD [address] [place] [address] [phone] 03/18/2020 Office Visit Family Medicine Rajwinder Carter DO [address] [facility] [place] [phone] 04/09/2020 Office Visit Family Medicine Rajwinder Carter DO [address] [facility], [place] [address] 04/29/2020 Nutrition Services Gastroenterology Melissa Omalley, RDN [address] [place] [phone] 05/06/2020 Office Visit Gynecology Obstetrics Aman Small, CNM [address] [place] [id number] 05/28/2020 Office Visit [facility]enterology [facility] Stout CR[facility] [address] [facility] [address] [phone] 06/30/2020 Office Visit Hematology Oncology Tono Sanchez MD [address] [place] [address] 09/03/2020 Imaging Radiology Health Maintenance Due Date [...] on File Type Date Recorded 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
--- OUTSIDE RECORDS SUMMARY | 2023-05-10 22:38 | External Medical Summary | Summary of Care ---
Author Name Unknown Organization [facility] Address [place] [address] Care Team Providers Care Corporate Compliance Manager Name Role Phone Rajwinder Carter Primary Care Provider [phone] Encounter Details Date Type Department Care Team Description 02/28/2020 Orders Only Gastroenterology, [facility] [address] [facility] [place] [address] Maritza Fernando MD [address] [place] [address] Preoperative examination* Allergies Active Allergy Reactions Severity Noted Date Comments Penicillins Rash 02/12/2008 documented as of this encounter (statuses as of 03/02/2020) Medications Medication Sig Dispensed Refills Start Date [...] Dosing Unit 5 10/07/2019 Active nystatin (NYSTOP) 178531 UNIT/GM powder Apply topically to affected area [...] ([facility]) inject 24 units under the skin at [...] as of this encounter (statuses as of 03/02/2020) Active Problems Problem Noted Date Iron deficiency [...] as of this encounter (statuses as of 03/02/2020) Resolved Problems Problem Noted Date Resolved Date [...] pain 01/24/2012 01/17/2017 Genetic Sleep Disorder Research Other*[id number] 05/13/2011 04/07/2016 Obstructive sleep apnea 01/18/2011 12/27/19 [...] as of this encounter (statuses as of 03/02/2020) Immunizations Name Administration Dates Next Due HEP [...] have Coronavirus / COVID-19? Unable to assess 02/28/2020 2:34 PM EDT documented as of this encounter Plan of Treatment Upcoming Encounters Date Type Specialty Care Team Description 03/05/2020 Imaging Radiology 03/11/2020 Imaging Radiology 03/15/2020 Pandemic Screening Ancillary Fernandes, Pre Surgical Covid Testing [address] [place] [address] 03/17/2020 Procedure Only Endoscopy Maritza Fernando MD [address] [place] [id number] 04/09/2020 Office Visit Family Medicine Rajwinder Carter DO [address] [place] [address] [phone] 04/29/2020 Nutrition Services Gastroenterology Melissa Omalley RDN [address] [place] [id number] 05/06/2020 Office Visit Gynecology Obstetrics Aman Small CN [address] [facility] [place] [phone] 05/28/2020 Office Visit Gastroenterology Lyssa Stout CRNP [address] [place] [address] [phone] 06/30/2020 Office Visit Hematology Oncology Tono Sanchez MD [address] [place] [address] [phone] 09/03/2020 Imaging Radiology Scheduled Orders Name Type Priority Associated Diagnoses Orde r Schedule COVID-19 Lab Routine Preoperative examination Expected: 03/06/2020 (Approximate), Expires: 05/30/2020 Health Maintenance Due Date Last Done Comments [...] 06/01/2010 Influenza Vaccine (FLU shot) Completed , 05/16/2018, 07/10/2017, Additional history exists MENINGOCOCCAL (MENACTRA/MENVEO) Aged Out No longer eligible based on patient's age to complete this topic documented as of this encounter Implants Not on filedocumented as of this encounter Visit Diagnoses Diagnosis Preoperative examination- Primary Preoperative examination, unspecified documented in this encounter Advance Directives Documents on File Type Date Recorded 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
--- OUTSIDE RECORDS SUMMARY | 2023-05-10 22:38 | External Medical Summary | Summary of Care ---
Author Name Unknown Organization [facility] Address [place] [address] Care Team Providers Care Charging Crane Operator Name Role Phone Rajwinder Carter DO Primary Care Provider [phone] Reason for Visit * Reason Comments Advice Encounter Details Date Type Department Care Team Description 03/04/2020 Telephone [facility] [address] [place] [address] Rajwinder Carter DO [address] [place] [address] Advice Allergies Active Allergy Reactions Severity Noted Date Comments Penicillins Rash 02/12/2008 documented as of this encounter (statuses as of 03/04/2020) Medications Medication Sig Dispensed Refills Start Date [...] Dosing Unit 5 10/07/2019 Active nystatin (NYSTOP) 108744 UNIT/GM powder Apply topically to affected area [...] as of this encounter (statuses as of 03/04/2020) Active Problems Problem Noted Date Iron deficiency [...] as of this encounter (statuses as of 03/04/2020) Resolved Problems Problem Noted Date Resolved Date [...] pain 01/24/2012 01/17/2017 Genetic Sleep Disorder Research Other*[id number] 05/13/2011 04/07/2016 Obstructive sleep apnea 01/18/2011 12/27/19 [...] as of this encounter (statuses as of 03/04/2020) Immunizations Name Administration Dates Next Due HEP [...] Telephone Encounter - Josselin Gaspar LPN - 03/04/2020 10:32 AM EDT Spoke to patient-having pain in right side, sharp-that started last night. Says it hurts every time she breathes in. Pain is a 10 out of 10 on pain scale and she is crying while on the phone. She says it is a lot like the kidney stone pain she had last year. She is unable to get into urology until June. Advised if she was in that much pain she needed to go to the ER-she verbalized understanding. Dr Carter aware. * Telephone Encounter - Susan Scott OSA - 03/04/2020 8:55 AM EDT The patient states that she has kidney stones. She is having right side pain and would like to knowwhat to do for the pain. Please advise the patient at [phone]. documented in this encounter Plan of Treatment Upcoming Encounters Date Type Specialty Care Team Description 03/05/2020 Imaging Radiology 03/11/2020 Imaging Radiology 03/15/2020 Pandemic Screening Ancillary Fernandes, Pre Surgical Covid Testing [place] [address] [place] [address] 03/17/2020 Procedure Only Endoscopy Maritza Fernando MD [address] [place] [address] 04/09/2020 Office Visit Family Medicine [facility]inder [facility] [address] [facility] [address] [phone] 04/29/2020 Nutrition Services Gastroenterology Melissa Omalley, RDN [address] [place] [phone] 05/06/2020 Office Visit Gynecology Obstetrics Aman Small, CNM [address] [place] [phone] 05/28/2020 Office Visit Gastroenterology Lyssa Stout CRNP [facility] [address] 06/30/2020 Office Visit Hematology Oncology Tono Sanchez MD [address] [place] [address] [phone] 09/03/2020 Imaging Radiology Health Maintenance Due Date [...] Documents on File Type Date Recorded 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
--- OUTSIDE RECORDS SUMMARY | 2023-05-10 22:38 | External Medical Summary | Summary of Care ---
Author Name Unknown Organization [facility] Address [place] [address] Care Team Providers Care Poultry Field Service Technician Name Role Phone Rajwinder Carter DO Primary Care Provider [phone] Reason for Visit * Reason Comments Outpatient Testing Encounter Details Date Type Department Care Team Description 03/05/2020 Telephone [facility] [address] [place] [address] Rajwinder Carter DO [address] [place] [address] Outpatient Testing Allergies Active Allergy Reactions Severity Noted Date Comments Penicillins Rash 02/12/2008 documented as of this encounter (statuses as of 03/06/2020) Medications Medication Sig Dispensed Refills Start Date [...] Dosing Unit 5 10/07/2019 Active nystatin (NYSTOP) 482548 UNIT/GM powder Apply topically to affected area 3 times a day. 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 * Telephone Encounter - Brianne Pal PA-C - 03/06/2020 12:45 PM EDT Lab orders are in Headache, unspecified headache type (Primary) - BUN; Future; Expected date: 03/06/2020 - CREATININE SERUM; Future; Expected date: 03/06/2020 Diplopia - BUN; Future; Expected date: 03/06/2020 - CREATININE SERUM; Future; Expected date: 03/06/2020 Brianne Pal PA-C 03/06/2020 12:45 PM * Telephone Encounter - Julia Quijano OSA - 03/05/2020 2:13 PM EDT Patient needs Bun and Creat labs ordered for MRI being done at [facility] On March 11. Please call patient when orders are in. documented in this encounter Plan of Treatment Upcoming Encounters Date Type Specialty Care Team Description 03/11/2020 Imaging Radiology 03/15/2020 Pandemic Screening Ancillary Fernandes, Pre Surgical Covid Testing [facility] [address] [place] [address] 03/17/2020 Procedure Only Endoscopy Maritza Fernando MD [address] [place] [address] 04/09/2020 Office Visit Family Medicine Rajwinder Carter DO [address] [facility], [place] [phone] 04/29/2020 Nutrition Services Gastroenterology Melissa Omalley, RDN [address] [place] [phone] 05/06/2020 Office Visit Gynecology Obstetrics Aman Small, BOOM [address] [place] [phone] 05/28/2020 Office Visit [facility]astroenterology Lyssa Stout CRNP [address] [facility] [address] [phone] 06/30/2020 Office Visit Hematology Oncology Tono Sanchez MD 200 [facility], [place] [address] 09/03/2020 Imaging Radiology Scheduled Orders Name Type Priority Associated Diagnoses Orde r Schedule BUN Lab Routine Headache, unspecified headache type Diplopia Expected: 03/06/2020 (Approximate), Expires: 03/06/2021 CREATININE SERUM Lab Routine Headache, unspecified headache type Diplopia Expected: 03/06/2020 (Approximate), Expires: 03/06/2021 Health Maintenance Due Date Last Done Comments [...] as of this encounter Visit Diagnoses Diagnosis Headache, unspecified headache type- Primary Diplopia documented in this encounter Advance Directives Documents on File Type Date Recorded 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
--- OUTSIDE RECORDS SUMMARY | 2023-05-10 22:38 | External Medical Summary | Summary of Care ---
Author Name Unknown Organization [facility] Address [place] [address] Care Team Providers Care Actuarial Science Teacher Name Role Phone Rajwinder Carter Primary Care Provider [phone] Reason for Visit * Reason Comments Test Results Encounter Details Date Type Department Care Team Description 03/02/2020 Telephone [facility] [address] [place] [address] Brianne Pal PA-C [address], [place] [phone] Test Results Allergies Active Allergy Reactions Severity [...] Dosing Unit 5 10/07/2019 Active nystatin (NYSTOP) 279420 UNIT/GM powder Apply topically to affected area [...] than 7.0% ([facility]) inject 24 units under the [...] pain 01/24/2012 01/17/2017 Genetic Sleep Disorder Research Other*[id number] 05/13/2011 04/07/2016 Obstructive sleep apnea 01/18/2011 12/27/19 [...] Miscellaneous Notes * Telephone Encounter - Silvia Patten OSA - 03/02/2020 12:30 PM EDT Patient has been notified of the message. Stated she takes her medications everyday. Patient has nofurther questions. * Telephone Encounter - Josselin Gaspar LPN - 03/02/2020 11:15 AM EDT Called patient-no answer. No voicemail set up-unable to leave a message. * Telephone Encounter - Brianne Pal PA-C - 03/02/2020 10:47 AM EDT Labs overall good Thyroid a little off (tsh) but circulating hormone is fine. Has she missed any doses? That is most common cause of this number being off. TSH(uIU/mL) Lucio Dt/Tm Resulted Value Status 02/21/20 11:43A 02/21/20 5.15* FINAL 04/05/19 6:40A 04/05/19 3.16 FINAL 01/30/19 12:37P 01/30/19 2.11 FINAL T4 Results: FREE T4 REFLEXIVE(ng/dL) Lucio Dt/Tm Resulted Value Status 02/21/20 11:43A 02/21/20 1.54 FINAL T4, FREE(ng/dL) Lucio Dt/Tm Resulted Value Status 12/30/13 3:20P 12/30/13 2.07* FINAL 09/23/13 8:22A 09/23/13 2.39* FINAL 03/21/13 9:24A 03/21/13 0.71 FINAL Brianne Pal PA-C 03/02/2020 10:47 AM documented in this encounter Plan of Treatment Upcoming Encounters Date Type Specialty Care Team Description 03/05/2020 Imaging Radiology 03/11/2020 Imaging Radiology 03/15/2020 Pandemic Screening Ancillary Fernandes, Pre Surgical Covid Testing [address] [place] [address] 03/17/2020 Procedure Only Endoscopy Maritza Fernando MD [address] [place] [id number] 04/09/2020 Office Visit Family Medicine Rajwinder Carter, DO [address], [place] [phone] 04/29/2020 Nutrition Services Gastroenterology Melissa Omalley RDN [address] [place] [phone] 05/06/2020 Office Visit Gynecology Obstetrics Aman Small CNM [address] [place] [phone] 05/28/2020 Office Visit Gastroenterology Lyssa Stout CRNP [address] [place] [address] [phone] 06/30/2020 Office Visit Hematology Oncology Tono Sanchez MD [address] [place] [address] [phone] 09/03/2020 Imaging Radiology Health Maintenance Due Date [...] on File Type Date Recorded Patient House Worker General 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
--- OUTSIDE RECORDS SUMMARY | 2023-05-10 22:38 | External Medical Summary | Summary of Care ---
Author Name Unknown Organization [place] [address] Care Team Providers Care Hardware Technician Name Role Phone Rajwinder Carter DO Primary Care Provider [phone] Encounter Details Date Type Department Care Team Description 02/27/2020 Telephone General Internal Medicine [facility] [address] [place] [address] Rajwinder Carter DO [address], [place] [phone] Allergies Active Allergy Reactions Severity Noted Date [...] Dosing Unit 5 10/07/2019 Active nystatin (NYSTOP) 051278 UNIT/GM powder Apply topically to affected area 3 times a day. 60 g 1 10/16/2019 Active BD PEN NEEDLE MINI U/F 31G X 5 MMIndications:Type 2 diabetes mellitus with hemoglobin A1c goal of less than 7.0% ([facility]) use with basaglar at bedtime [...] 7.0% ([facility]) inject 24 units under the [...] pain 01/24/2012 01/17/2017 Genetic Sleep Disorder Research Other*[id number] 05/13/2011 04/07/2016 Obstructive sleep apnea 01/18/2011 12/27/19 [...] encounter Miscellaneous Notes * Telephone Encounter - Dharmesh Lynn RN - 02/27/2020 12:33 PM EDT Thank you for this insight, Dr. Carter. * Telephone Encounter - Rajwinder Carter DO - 02/27/2020 11:54 AM EDT This patient has been a challenge. We see her often in the office as well and she will turn around and go right back to the ED. The home situation is not ideal. There was a niece living with them fora period of time that was stealing medications and substituting other things in for it. This causedthe agency in charge of her caregivers to terminate their relationship. She does have a new set of caregivers now but I do not feel they are as invested. The only time that she did reasonably well was when she was in a SNF but her covered days ran out at that time. I believe that this is her underlying goal as she feels that she may be placed right from the hospital. If you are able to get a casemanager involved for her, I would be happy to speak with them. * Telephone Encounter - Dharmesh Lynn RN - 02/27/2020 10:03 AM EDT ThanksFrida. I will check with Valerie. * Telephone Encounter - Connie Arguello RN - 02/27/2020 9:49 AM EDT Hello-I follow [facility] & straight Medicare patients, per [facility] record, patient has [employer] Insurance-perhaps a call could be made to [employer] to see if they have a case management program-thanks Connie Arguello, RN * Telephone Encounter - Dharmesh Lynn RN - 02/27/2020 8:36 AM EDT Received a call from [facility] healthcare business analyst Emmy Vega, regarding the frequent admissions thatShaina has at [facility]. They are concerned that she is not getting a complete picture of her symptoms/disease process. I spoke with Shaina by phone on 02/24 to follow up after hospital discharge as patient had reported that she did not receive discharge instructions from [facility]. Patient did not voice these concerns as acknowledged understanding of discharge instructions. She has appropriate hospital follow up appointment and GI follow up appointments scheduled. Possibly outpatient case management would be beneficial to this patient? Thank you for your time. documented in this encounter Plan of Treatment Upcoming Encounters Date Type Specialty Care Team Description 03/05/2020 Imaging Radiology 03/11/2020 Imaging Radiology 03/15/2020 Pandemic Screening Ancillary Fernandes, Pre Surgical Covid Testing Chau [address] [place] [address] 03/17/2020 Procedure Only Endoscopy Maritza Fernando MD [address] [place] [phone] 04/09/2020 Office Visit Family Medicine Rajwinder Carter, [address], [place] [phone] 04/29/2020 Nutrition Services Gastroenterology Melissa Omalley RDN [address] [place] [phone] 05/06/2020 Office Visit Gynecology Obstetrics Aman Small, MANAV [address] [place] [address] [phone] 05/28/2020 Office Visit Gastroenterology Lyssa Stout CRNP [address] [place] [address] [phone] 06/30/2020 Office Visit Hematology Oncology Tono Sanchez MD [address] [place] [address] [phone] 09/03/2020 Imaging Radiology Health Maintenance Due Date [...] on File Type Date Recorded Patient Business Controller 

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
--- OUTSIDE RECORDS SUMMARY | 2023-05-10 22:38 | External Medical Summary | Summary of Care ---
Author Name Unknown Organization [facility] [address] Care Team Providers Care Compressor Service Technician Name Role Phone Rajwinder Carter DO Primary Care Provider [phone] Encounter Details Date Type Department Care Team Description 03/04/2020 Scan Encounter Unspecified Department <No scans attached> Allergies Active Allergy Reactions Severity Noted Date Comments Penicillins Rash 02/12/2008 documented as of this encounter (statuses as of 03/05/2020) Medications Medication Sig Dispensed Refills Start Date [...] Dosing Unit 5 10/07/2019 Active nystatin (NYSTOP) 214292 UNIT/GM powder Apply topically to affected area [...] as of this encounter (statuses as of 03/05/2020) Active Problems Problem Noted Date Iron deficiency [...] as of this encounter (statuses as of 03/05/2020) Resolved Problems Problem Noted Date Resolved Date [...] pain 01/24/2012 01/17/2017 Genetic Sleep Disorder Research Other*[id number] 05/13/2011 04/07/2016 Obstructive sleep apnea 01/18/2011 12/27/19 [...] as of this encounter (statuses as of 03/05/2020) Immunizations Name Administration Dates Next Due HEP [...] Covid Testing [address] [place] [address] 03/17/2020 Procedure Only Endoscopy Maritza Fernando MD [address] [place] [id number] 04/09/2020 Office Visit Family Medicine Rajwinder Carter DO [address] [place], [place] [phone] 04/29/2020 Nutrition Services Gastroenterology Melissa Omalley RDN [address] [facility] [id number] 05/06/2020 Office Visit Gynecology Obstetrics Aman Small, BOOM [address] [place] [id number] 05/28/2020 Office Visit Gastroenterology Lyssa Stout CRNP [address] [place] [address] [phone] 06/30/2020 Office Visit Hematology Oncology Tono Sanchez MD [address] [place] [address] [phone] 09/03/2020 Imaging Radiology Health Maintenance Due Date [...] Documents on File Type Date Recorded Patient Custodial Operations Manager 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
--- OUTSIDE RECORDS SUMMARY | 2023-05-10 22:38 | External Medical Summary | Summary of Care ---
Author Name Unknown Organization [facility] Address [place] [address] Care Team Providers Care Resistor Winder Name Role Phone Rajwinder Carter Primary Care Provider [phone] Reason for Visit * Reason Comments Test Results Encounter Details Date Type Department Care Team Description 03/02/2020 Telephone [facility] [address] [place] [address] Brianne Pal PA-C [address] [place], [place] [id number] Test Results Allergies Active Allergy Reactions Severity [...] Dosing Unit 5 10/07/2019 Active nystatin (NYSTOP) 581888 UNIT/GM powder Apply topically to affected area 3 times a day. 60 g 1 10/16/2019 Active BD PEN NEEDLE MINI U/F 31G X 5 MMIndications:Type 2 diabetes mellitus with hemoglobin A1c goal of less than 7.0% ([facility]) use with basaglar at bedtime 100 Each [...] less than 7.0% ([facility]) inject 24 units under the skin at [...] pain 01/24/2012 01/17/2017 Genetic Sleep Disorder Research Other*[id number] 05/13/2011 04/07/2016 Obstructive sleep apnea 01/18/2011 12/27/19 [...] Covid Testing [address] [place] [address] 03/17/2020 Procedure Only Endoscopy Maritza Fernando MD [address] [place] [id number] 04/09/2020 Office Visit Family Medicine Rajwinder Carter, DO [address], [place] [phone] 04/29/2020 Nutrition Services Gastroenterology Melissa Omalley RDN [address] [place] [id number] [phone] 05/06/2020 Office Visit Gynecology Obstetrics Aman Small CNM [address] [place] [id number] 05/28/2020 Office Visit Gastroenterology Lyssa Stout CRNP [address] [place] [address] [phone] 06/30/2020 Office Visit Hematology Oncology Tono Sanchez MD [address] [place] [address] [phone] 09/03/2020 Imaging Radiology Health Maintenance Due Date [...] Documents on File Type Date Recorded 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
--- OUTSIDE RECORDS SUMMARY | 2023-05-10 22:38 | External Medical Summary | Summary of Care ---
Author Name Unknown Organization [place] [address] Care Team Providers Care Reliability Manager Name Role Phone Rajwinder Carter DO Primary Care Provider [phone] Encounter Details Date Type Department Care Team Description 02/22/2020 Scan Encounter Unspecified Department <No scans attached> [...] Dosing Unit 5 10/07/2019 Active nystatin (NYSTOP) 421342 UNIT/GM powder Apply topically to affected area [...] mouth daily. 90 Tab 3 02/20/2020 Active documented as of this encounter (statuses [...] pain 01/24/2012 01/17/2017 Genetic Sleep Disorder Research Other*[id number] 05/13/2011 04/07/2016 Obstructive sleep apnea 01/18/2011 12/27/19 [...] Surgical Covid Testing Chau [address] [place] [address] 03/17/2020 Procedure Only Endoscopy Maritza Fernando MD [address] [place] [id number] 04/09/2020 Office Visit Family Medicine Rajwinder Carter DO [address] [place] [facility] [place] [facility] [address] [phone] 04/29/2020 Nutrition Services Gastroenterology Melissa Omalley, SAMANTHA [address] [place] [address] [phone] 05/06/2020 Office Visit Gynecology Obstetrics Aman Small, CNM [address] [place] [phone] 05/28/2020 Office Visit Gastroenterology Lyssa Stout CRNP [address] [place] [address] [phone] 06/30/2020 Office Visit Hematology Oncology Tono Sanchez MD [address] [place] [address] [phone] 09/03/2020 Imaging Radiology Health Maintenance Due Date [...] Documents on File Type Date Recorded Patient Solutions Analyst 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
--- OUTSIDE RECORDS SUMMARY | 2023-05-10 22:38 | External Medical Summary | Summary of Care ---
Author Name Unknown Organization [facility] Address [place] [address] Care Team Providers Care Audience Coordinator Name Role Phone Rajwinder Carter Primary Care Provider [phone] Reason for Visit * Reason Comments Test Results Encounter Details Date Type Department Care Team Description 03/02/2020 Telephone [facility] [address] [place] [address] Brianne Pal PA-C [address] [place], [place] [phone] Test Results Allergies Active Allergy Reactions Severity [...] Dosing Unit 5 10/07/2019 Active nystatin (NYSTOP) 469678 UNIT/GM powder Apply topically to affected area 3 times a day. 60 g 1 10/16/2019 Active BD PEN NEEDLE MINI U/F 31G X 5 MMIndications:Type 2 diabetes mellitus with hemoglobin A1c goal of less than 7.0% ([facility]) use with basaglar at bedtime [...] 7.0% ([facility]) inject 24 units under the [...] pain 01/24/2012 01/17/2017 Genetic Sleep Disorder Research Other*[id number] 05/13/2011 04/07/2016 Obstructive sleep apnea 01/18/2011 12/27/19 [...] Covid Testing [address] [place] [address] 03/17/2020 Procedure Only Endoscopy Maritza Fernando MD [address] [place] [id number] 04/09/2020 Office Visit Family Medicine Rajwinder Carter, DO [address] [place], [place] [phone] 04/29/2020 Nutrition Services Gastroenterology Melissa Omalley RDN [address] [place] [id number] [phone] 05/06/2020 Office Visit Gynecology Obstetrics Aman Small CNM [address] [place] [id number] 05/28/2020 Office Visit Gastroenterology Lyssa Stout CRNP [address] [place] [address] [phone] 06/30/2020 Office Visit Hematology Oncology Tono Sanchez MD [address] [place] [address] [phone] 09/03/2020 Imaging Radiology Health Maintenance Due Date [...] Documents on File Type Date Recorded Patient Magnesium Mill Operator 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
--- OUTSIDE RECORDS SUMMARY | 2023-05-10 22:39 | External Medical Summary | Summary of Care ---
Author Name Unknown Organization [facility] Address [place] [address] Care Team Providers Care Right Of Way Appraiser Name Role Phone Rajwinder Carter DO Primary Care Provider [phone] Reason for Visit * Reason Comments Hospital Follow-Up [facility]- kidney stone/b ladder infection Encounter Details Date Type Department Care Team Description 02/24/2020 Telephone [facility] [address] [place] [address] Rajwinder Carter DO [address] [place] [address] [phone] Hospital Follow-Up ([facility]- kidney stone/miguel... Allergies Active Allergy Reactions Severity Noted Date Comments Penicillins Rash 02/12/2008 documented as of this encounter (statuses as of 02/24/2020) Medications Medication Sig Dispensed Refills Start Date End Date Status CENTRUM SILVER PO TABS 1 tab daily 1 Tab 0 05/25/2012 Active vitamin c (ASCORBIC ACID) 500 MG Tablet Take 500 mg by mouth daily. 0 Active furosemide (LASIX) 20 MG Tablet Take 20 mg by mouth daily. Every other day 0 Active fluticasone (FLONASE) 50 MCG/ACT nasal sprayIndications:Si nus congestion INSTILL 2 SPRAYS INTO EACH NOSTRIL DAILY DIRECTED 16 g 5 08/01/2019 Active oxybutynin (DITROPAN) 5 MG Tablet Take 1 Tab by mouth 2 times a day. 60 Tab 4 09/13/2019 Active pantoprazole (PROTONIX) 20 MG TBECIndications:Gas troesophageal reflux disease, esophagitis presence not specified,NAFLD (nonalcoholic fatty liver disease),Other cirrhosis of liver (HCC) Take 2 Tabs by mouth daily. 60 Tab 5 09/13/2019 Active albuterol sulfate (PROVENTIL) (2.5 MG/3ML) 0.083% nebulizer solutionIndications :Pulmonary vascular congestion Inhale 1 Vial via nebulizer every 6 hours as needed for Wheezing. 120 Vial 11 10/02/2019 Active Semaglutide, 1 MG/DOSE, (OZEMPIC, 1 MG/DOSE,) 2 MG/1.5ML SOPN Inject 1 mg under the skin once a week. DX:E11.9 2 Pre-filled Pen Syringe Dosing Unit 5 10/07/2019 Active nystatin (NYSTOP) 536948 UNIT/GM powder Apply topically to affected area 3 times a day. 60 g 1 10/16/2019 Active BD PEN NEEDLE MINI U/F 31G X 5 MMIndications:Type 2 diabetes mellitus with hemoglobin A1c goal of less than 7.0% ([facility] [place] [facility]) use with basaglar at bedtime [...] in pm, 180 Cap 5 11/07/2019 Active tamsulosin (FLOMAX) 0.4 MG Capsule Take 1 Cap by mouth daily. 30 Cap 3 11/07/2019 Active nadolol (CORGARD) 20 MG Tablet [...] at bedtime 30 mL 0 12/04/2019 Active SM ASPIRIN ADULT LOW STRENGTH [...] AT BEDTIME 30 Tab 0 01/30/2020 Active cefdinir (OMNICEF) 300 MG Capsule 300 mg 4 times a day. Until gone. 0 01/20/2020 Active sucralfate (CARAFATE) 1 GM Tablet 0 01/20/2020 Active levothyroxine (LEVOXYL) 200 MCG Tablet Take 1 Tab by mouth daily. 90 Tab 3 02/20/2020 Active documented as of this encounter (statuses as of 02/24/2020) Active Problems Problem Noted Date Iron deficiency [...] as of this encounter (statuses as of 02/24/2020) Resolved Problems Problem Noted Date Resolved Date [...] pain 01/24/2012 01/17/2017 Genetic Sleep Disorder Research Other*[id number] 05/13/2011 04/07/2016 Obstructive sleep apnea 01/18/2011 12/27/19 [...] as of this encounter (statuses as of 02/24/2020) Immunizations Name Administration Dates Next Due HEP [...] have Coronavirus / COVID-19? Unable to assess 02/24/2020 9:02 AM EDT documented as of this encounter Miscellaneous Notes * Telephone Encounter - Talita Caballero OSA - 02/24/2020 12:01 PM EDT VM full Unable to LMOM 02/23 RMG * Telephone Encounter - Janett Triana OSA - 02/24/2020 9:01 AM EDT No appointments available. Patient declined appointments?: no, pt requesting to be seen in office with Brianne Pal PA-C See Call Details? (Yes or No): yes, hospital discharge [facility] on 02/23/2020 documented in this encounter Plan of Treatment Upcoming Encounters Date Type Specialty Care Team Description 02/28/2020 Telemedicine Gastroenterology Lyssa Stout CRNP [address] [facility] [place] [address] [phone] 03/05/2020 Imaging Radiology 03/11/2020 Office Visit Family Medicine [facility]winder Carter DO [address] [facility] [address] [phone] 04/29/2020 Nutrition Services Gastroenterology Melissa Omalley RDN [address] [place] [address] [phone] 05/06/2020 Office Visit Gynecology Obstetrics Aman Small, MANAV [address] [facility] [place] [address] [phone] 06/30/2020 Office Visit Hematology Oncology Tono Sanchez MD [address] [facility], [place] [address] 09/03/2020 Imaging Radiology Health Maintenance Due Date [...] on File Type Date Recorded Patient Data Integrity Specialist 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
--- OUTSIDE RECORDS SUMMARY | 2023-05-10 22:39 | External Medical Summary | Summary of Care ---
Author Name Unknown Organization [place] [address] Care Team Providers Care Tariff Compiler Name Role Phone Rajwinder Carter Primary Care Provider [phone] Encounter Details Date Type Department Care Team Description 02/21/2020 Scan Encounter Unspecified Department <No scans attached> Allergies Active Allergy Reactions Severity Noted Date Comments Penicillins Rash 02/12/2008 documented as of this encounter (statuses as of 02/25/2020) Medications Medication Sig Dispensed Refills Start Date [...] Dosing Unit 5 10/07/2019 Active nystatin (NYSTOP) 807894 UNIT/GM powder Apply topically to affected area [...] as of this encounter (statuses as of 02/25/2020) Active Problems Problem Noted Date Iron deficiency [...] as of this encounter (statuses as of 02/25/2020) Resolved Problems Problem Noted Date Resolved Date [...] pain 01/24/2012 01/17/2017 Genetic Sleep Disorder Research Other*[id number] 05/13/2011 04/07/2016 Obstructive sleep apnea 01/18/2011 12/27/19 [...] as of this encounter (statuses as of 02/25/2020) Immunizations Name Administration Dates Next Due HEP [...] 02/28/2020 Telemedicine Gastroenterology Lyssa Stout CRNP [address] [facility] [place] [address] [phone] 03/05/2020 Imaging Radiology 03/11/2020 Office Visit Family Medicine Rajwinder Carter DO [address] [place] [address] 04/29/2020 Nutrition Services Gastroenterology Melissa Omalley RDN [address] [place] [phone] 05/06/2020 Office Visit Gynecology Obstetrics Aman Small CNM [address] [place] [phone] 06/30/2020 Office Visit Hematology Oncology Tono Sanchez MD 200 [facility], [place] [address] 09/03/2020 Imaging Radiology Health Maintenance Due Date [...] on File Type Date Recorded Patient Chemist Organic 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
--- OUTSIDE RECORDS SUMMARY | 2023-05-10 22:39 | External Medical Summary | Summary of Care ---
Author Name Unknown Organization [place] [address] Care Team Providers Care Guest House Manager Name Role Phone Rajwinder Carter Primary Care Provider [phone] Encounter Details Date Type Department Care Team [...] Dosing Unit 5 10/07/2019 Active nystatin (NYSTOP) 731720 UNIT/GM powder Apply topically to affected area [...] pain 01/24/2012 01/17/2017 Genetic Sleep Disorder Research Other*[id number] 05/13/2011 04/07/2016 Obstructive sleep apnea 01/18/2011 12/27/19 [...] have Coronavirus / COVID-19? No / Unsure 02/21/2020 10:28 AM EDT documented as of this encounter Plan of Treatment Upcoming Encounters Date Type Specialty Care Team Description 02/28/2020 Telemedicine Gastroenterology Lyssa Stout CRNP [address] [facility] [place] [address] [phone] 03/05/2020 Imaging Radiology 03/11/2020 Office Visit Family Medicine Rajwinder Carter DO [address] [place] [address] 04/29/2020 Nutrition Services Gastroenterology Melissa Omallye RDN [address] [place] [id number] 05/06/2020 Office Visit Gynecology Obstetrics Aman Small, MANAV [address] [place] [phone] 06/30/2020 Office Visit Hematology Oncology Tono Sanchez MD 200 [facility], [place] [address] 09/03/2020 Imaging Radiology Health Maintenance Due Date [...] Documents on File Type Date Recorded Patient Advertising Editor 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
--- OUTSIDE RECORDS SUMMARY | 2023-05-10 22:39 | External Medical Summary | Summary of Care ---
Author Name Unknown Organization [facility] Address [facility] [place] [address] Care Team Providers Care Acute Dialysis Nurse Name Role Phone JohnbrianRajwinder thacker Primary Care Provider [phone] Reason for Visit * Reason Comments eRx-Medication Refill Encounter Details Date Type Department Care Team Description 02/25/2020 Refill Gastroenterology, [facility] 132 [facility] [place] [address] Lyssa Saxena CRNP [address] [facility] [address] [phone] Gastroesophageal reflux disease, esophagitis presence not specified; NAFLD (nonalcoholic fatty liver disease); Other cirrhosis of liver (HCC) Allergies Active Allergy Reactions Severity Noted Date Comments Penicillins Rash 02/12/2008 documented as of this encounter (statuses as of 02/26/2020) Medications Medication Sig Dispensed Refills Start Date [...] Dosing Unit 5 10/07/2019 Active nystatin (NYSTOP) 169835 UNIT/GM powder Apply topically to affected area [...] ONCE DAILY 180 Tab 1 02/26/2020 Active pantoprazole (PROTONIX) 20 MG TBECIndications:G astroesophageal reflux disease, esophagitis presence not specified,NAFLD (nonalcoholic fatty liver disease),Other cirrhosis of liver (HCC) Take 2 Tabs by mouth daily. 60 Tab 5 09/13/2019 02/25/20 20 Discontinued documented as of this encounter (statuses as of 02/26/2020) Active Problems Problem Noted Date Iron deficiency [...] as of this encounter (statuses as of 02/26/2020) Resolved Problems Problem Noted Date Resolved Date [...] pain 01/24/2012 01/17/2017 Genetic Sleep Disorder Research Other*[id number] 05/13/2011 04/07/2016 Obstructive sleep apnea 01/18/2011 12/27/19 [...] as of this encounter (statuses as of 02/26/2020) Immunizations Name Administration Dates Next Due HEP [...] have Coronavirus / COVID-19? No / Unsure 02/25/2020 4:22 PM EDT documented as of this encounter Miscellaneous Notes * Telephone Encounter - Katie Hartmann RPh - 02/26/2020 12:49 PM EDT Signed Prescriptions: Disp Refills pantoprazole (PROTONIX) 20 MG TBEC 180 Tab1 Sig: TAKE 2 TABLETS BY MOUTH ONCE DAILYAuthorizing Provider: LYSSA SAXENA User: KATIE HARTMANN------ * Telephone Encounter - Ludy Mccormack parking lot spotter - 02/25/2020 10:28 AM EDT Pending Prescriptions: Disp Refills pantoprazole (PROTONIX) 20 MG TBEC [Pharm*180 Tab1 Sig: TAKE 2 TABLETS BY MOUTH ONCE DAILY * Telephone Encounter - Ludy Mccormack PHARM Tech - 02/25/2020 10:27 AM EDT Pending Prescriptions: Disp Refills pantoprazole (PROTONIX) 20 MG TBEC [Pharm*180 Tab1 Sig: TAKE 2 TABLETS BY MOUTH ONCE DAILY Last Office/Telemedicine Visit: 11/26/2019 Next Office Visit: 02/28/2020 Scheduled Provider(s): ZAK Bolton If no future appointments scheduled, and last appointment is greater than a year ago, please schedule patient for a follow-up appointment Last date the medication was ordered: 09/13/19 Pharmacy: [facility] [id number] Is this request for a controlled substance?No Urine Drug Screen:No results found. However, due to the size of the patient record, not all encounters were searched. Please check Results Review for a complete set of results. Patient Phone Numbers Labs: Lab Results Component Value Date/Time CREAT 0.6 02/21/2020 11:43 AM POTASSIUM 4.0 02/21/2020 11:43 AM TSH 5.15 (H) 02/21/2020 11:43 AM LDLCALC 43 04/05/2019 06:40 AM LDLDIRECT 46 02/21/2020 11:43 AM ALT 30 02/21/2020 11:43 AM HGBA1C 6.7 (H) 02/21/2020 11:43 AM documented in this encounter Plan of Treatment Upcoming Encounters Date Type Specialty Care Team Description 02/27/2020 Office Visit Family Medicine Rajwinder Carter DO [address] [facility] [place] [address] [phone] 02/28/2020 Telemedicine Gastroenterology Lyssa Saxena CRNP 132 [facility] [place] [address] [phone] 03/05/2020 Imaging Radiology 03/11/2020 Office Visit Family Medicine Rajwinder Carter DO [address] [place] [address] [phone] 04/29/2020 Nutrition Services Gastroenterology Melissa Omalley, RDN [address] [facility] [phone] 05/06/2020 Office Visit Gynecology Obstetrics Aman Small, CNM [address] [place] [phone] 06/30/2020 Office Visit Hematology Oncology Tono Sanchez MD 200 [place] [address] [phone] 09/03/2020 Imaging Radiology Health Maintenance Due Date [...] as of this encounter Visit Diagnoses Diagnosis Gastroesophageal reflux disease, esophagitis presence not specified NAFLD (nonalcoholic fatty liver disease) Other chronic nonalcoholic liver disease Other cirrhosis of liver (HCC) documented in this encounter Advance Directives Documents on File Type Date Recorded Patient Ballpoint Pens Assembler 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
--- OUTSIDE RECORDS SUMMARY | 2023-05-10 22:39 | External Medical Summary | Summary of Care ---
Author Name Unknown Organization [place] [address] Care Team Providers Care Collar Shaper Operator Name Role Phone Rajwinder Carter Primary Care Provider [phone] Reason for Visit * Reason Comments Test Results Lab Encounter Details Date Type Department Care Team Description 02/24/2020 Telephone Hematology/Oncology Treatment, [place] [address] [place] [address] Tono Sanchez MD [address] [place] [address] [phone] Test Results Lab Allergies Active Allergy Reactions Severity Noted Date [...] Dosing Unit 5 10/07/2019 Active nystatin (NYSTOP) 493920 UNIT/GM powder Apply topically to affected area [...] pain 01/24/2012 01/17/2017 Genetic Sleep Disorder Research Other*[id number] 05/13/2011 04/07/2016 Obstructive sleep apnea 01/18/2011 12/27/19 [...] Telephone Encounter - Bella Ramires LPN - 02/24/2020 8:48 AM EDT Pt made aware of results and will have labs drawn as ordered. * Telephone Encounter - Cassie Barboza RN - 02/24/2020 8:[address] Sanchez: "She received intravenous iron in the form of Venofer x 4, last treatment received on 02/13/2020. Blood workup done on 02/22/2020: - WBC= 3200, H&H= 9.7/32.5, Platelet= 76,000, MCV 09 - Ferritin level --> 126 - Serum iron: 303, TIBC 303, iron saturation 100%. - Vitamin B12 level --> 682. - Vitamin D level --> 42 which is in the normal range. - BUN/Creat: 10/0.6, normal liver function test. She has cirrhosis of liver, portal hypertension. Pancytopenia is expected. Would like to repeat CBCD, ferritin, iron profile in about 6 weeks. " Bella: please call patient to review lab results. documented in this encounter Plan of Treatment Upcoming Encounters Date Type Specialty Care Team Description 02/28/2020 Telemedicine Gastroenterology Lyssa Stout CRNP [address] [facility] [place] [address] [phone] 03/05/2020 Imaging Radiology 03/11/2020 Office Visit Family Medicine Rajwinder Carter DO [address] [facility], [place] [address] [phone] 04/29/2020 Nutrition Services Gastroenterology Melissa Omalley, RDN [address] [place] [address] [place] [id number] 05/06/2020 Office Visit Gynecology Obstetrics Aman Small, CNM [address] [place] [id number] 06/30/2020 Office Visit Hematology Oncology Tono Sanchez MD 200 [place] [address] [phone] 09/03/2020 Imaging Radiology Scheduled Orders Name Type Priority Associated Diagnoses Orde r Schedule CBC/DIFF Lab STAT Iron deficiency anemia due to chronic blood loss Expected: 04/06/2020 (Approximate), Expires: 03/25/2021 FERRITIN Lab STAT Iron deficiency anemia due to chronic blood loss Expected: 04/06/2020 (Approximate), Expires: 03/25/2021 IRON SCREEN, INCLUDING TIBC Lab STAT Iron deficiency anemia due to chronic blood loss Expected: 04/06/2020 (Approximate), Expires: 03/25/2021 Health Maintenance Due Date Last Done Comments [...] Documents on File Type Date Recorded 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
--- OUTSIDE RECORDS SUMMARY | 2023-05-10 22:39 | External Medical Summary | Summary of Care ---
Author Name Unknown Organization [facility] [place] [address] Care Team Providers Care City Weighmaster Name Role Phone Rajwinder Carter DO Primary Care Provider [phone] Reason for Visit * Reason Comments Hospital Follow-Up [facility]- kidney stone/b ladder infection Encounter Details Date Type Department Care Team Description 02/24/2020 Telephone [facility] [address] [place] [address] Rajwinder Carter DO [address] [place] [address] [phone] Hospital Follow-Up ([facility]- kidney stone/miguel... Allergies Active Allergy Reactions Severity [...] DAILY DIRECTED 16 g 5 08/01/2019 Active pantoprazole (PROTONIX) 20 MG TBECIndications:G astroesophageal [...] Dosing Unit 5 10/07/2019 Active nystatin (NYSTOP) 957830 UNIT/GM powder Apply topically to affected area 3 times a day. 60 g 1 10/16/2019 Active BD PEN NEEDLE MINI U/F 31G X 5 MMIndications:Typ e 2 diabetes mellitus with hemoglobin A1c goal of less than 7.0% ([facility]) use with basaglar at bedtime [...] 02/20/2020 Active oxybutynin (DITROPAN) 5 MG Tablet Take 1 Tab by mouth 2 times a day. 60 Tab 4 09/13/2019 02/26/20 20 Discontinued tamsulosin (FLOMAX) 0.4 MG Capsule Take 1 Cap by mouth daily. 30 Cap 3 11/07/2019 02/26/20 20 Discontinued documented as of this encounter [...] pain 01/24/2012 01/17/2017 Genetic Sleep Disorder Research Other*[id number] 05/13/2011 04/07/2016 Obstructive sleep apnea 01/18/2011 12/27/19 [...] Telephone Encounter - Talita Caballero OSA - 02/26/2020 8:38 AM EDT Appt is scheduled 02/26 rmg * Telephone Encounter - Gael Doan OSA - 02/25/2020 12:19 PM EDT Stefany calling from [facility] with patient on the line - calling to check on the status of request. Patient unaware she had been called to schedule, states she had been having phone issues. Requesting a call back to schedule hospital discharge appointment with Brianne Pal. Thanks. Callback#: [phone] * Telephone Encounter - Talita Caballero OSA - 02/24/2020 12:01 PM EDT VM full Unable to LMOM 02/23 RMG * Telephone Encounter - Janett Triana OSA - 02/24/2020 9:01 AM EDT No appointments available. Patient declined appointments?: no, pt requesting to be seen in office with Brianne Mingear, PA-C See Call Details? (Yes or No): yes, hospital discharge [facility] on 02/23/2020 documented in this encounter Plan of Treatment Upcoming Encounters Date Type Specialty Care Team Description 02/27/2020 Office Visit Family [facility]inder [facility], [facility] [address] [facility] [id number] 02/28/2020 Telemedicine Gastroenterology Lyssa Stout CRNP [address] [facility] [place] [address] [phone] 03/05/2020 Imaging Radiology 03/11/2020 Office Visit [facility] Rajwinder Carter, DO [address] [facility] [place] [id number] 04/29/2020 Nutrition Services Gastroenterology Melissa Omalley RDN [address] [place] [id number] 05/06/2020 Office Visit Gynecology Obstetrics Aman Small CNM [address] [facility] [place] [id number] 06/30/2020 Office Visit Hematology Oncology Tono Sanchez MD 200 [place] [address] [phone] 09/03/2020 Imaging Radiology Health Maintenance Due Date [...] on File Type Date Recorded Patient Mine Wirer 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
--- OUTSIDE RECORDS SUMMARY | 2023-05-10 22:39 | External Medical Summary | Summary of Care ---
Author Name Unknown Organization [place] [address] Care Team Providers Care Emergency Veterinarian Name Role Phone Rajwinder Lara DO Primary Care Provider [phone] Reason for Visit * Reason Comments eRx-Medication Refill Encounter Details Date Type Department Care Team Description 02/24/2020 Refill [place] [address] [place] [address] Rajwinder Lara DO [address] [place] [address] [phone] Allergies Active Allergy Reactions Severity Noted Date [...] Dosing Unit 5 10/07/2019 Active nystatin (NYSTOP) 244641 UNIT/GM powder Apply topically to affected area [...] TWICE DAILY 60 Tab 0 02/26/2020 Active oxybutynin (DITROPAN) 5 MG Tablet Take [...] pain 01/24/2012 01/17/2017 Genetic Sleep Disorder Research Other*[id number] 05/13/2011 04/07/2016 Obstructive sleep apnea 01/18/2011 12/27/19 [...] Telephone Encounter - Rajwinder Lara DO - 02/26/2020 7:37 AM EDT Signed Prescriptions: Disp Refills tamsulosin (FLOMAX) 0.4 MG Capsule 30 Cap 0 Sig: TAKE 1 CAPSULE BY MOUTH ONCE DAILY Authorizing Provider: RAJWINDER LARA oxybutynin (DITROPAN) 5 MG Tablet 60 Tab 0 Sig: TAKE 1 TABLET BY MOUTH TWICE DAILY Authorizing Provider: RAJWINDER LARA * Telephone Encounter - Tom Allen CPhT - 02/25/2020 6:53 PM EDT Pending Prescriptions: Disp Refills tamsulosin (FLOMAX) 0.4 MG Capsule [Pharm*30 Cap 0 Sig: TAKE 1 CAPSULE BY MOUTH ONCE DAILY oxybutynin (DITROPAN) 5 MG Tablet [Pharma*60 Tab 0 Sig: TAKE 1 TABLET BY MOUTH TWICE DAILY * Telephone Encounter - Tom Allen CPhT - 02/25/2020 6:52 PM EDT Pending Prescriptions: Disp Refills tamsulosin (FLOMAX) 0.4 MG Capsule [Pharm*30 Cap 0 Sig: TAKE 1 CAPSULE BY MOUTH ONCE DAILY oxybutynin (DITROPAN) 5 MG Tablet [Pharma*60 Tab 0 Sig: TAKE 1 TABLET BY MOUTH TWICE DAILY Last Office/Telemedicine Visit: 02/21/2020 Next Office Visit: 02/27/2020 Scheduled Provider(s): Rajwinder Lara, DO If no future appointments scheduled, and last appointment is greater than a year ago, please schedule patient for a follow-up appointment Last date the medication was ordered: 11/07/2019 flomax // oxybutynin 09/13/2019 Pharmacy: [facility] [id number] Is this request for a controlled [...] Description 02/27/2020 Office Visit Family Medicine Rajwinder Lara, DO [address] [place] [id number] 02/28/2020 Telemedicine Gastroenterology Lyssa Stout CRNP [address] [facility] [place] [address] [phone] 03/05/2020 Imaging Radiology 03/11/2020 Office Visit Family Rajwinder Lopez, [address] [place] [address] 04/29/2020 Nutrition Services Gastroenterology Melissa Omalley, SAMANTHA [address] [place] [id number] 05/06/2020 Office Visit Gynecology Obstetrics Aman Small, OBOM [address] [place] [id number] 06/30/2020 Office Visit Hematology Oncology Tono Sanchez MD [address] [place] [address] [phone] 09/03/2020 Imaging Radiology Health Maintenance Due Date [...] on File Type Date Recorded 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
--- OUTSIDE RECORDS SUMMARY | 2023-05-10 22:39 | External Medical Summary | Summary of Care ---
Author Name Unknown Organization [facility] Address [place] [address] Care Team Providers Care Hotel Dining Room Cashier Name Role Phone Rajwinder Carter DO Primary Care Provider [phone] Reason for Visit * Reason Comments Appointment Urology Encounter Details Date Type Department Care Team Description 02/27/2020 Telephone [facility] [address] [place] [address] Rajwinder Carter DO [address] [place], [place] [id number] Appointment (Urology) Allergies Active Allergy Reactions Severity Noted Date Comments Penicillins Rash 02/12/2008 documented as of this encounter (statuses as of 02/27/2020) Medications Medication Sig Dispensed Refills Start Date [...] Dosing Unit 5 10/07/2019 Active nystatin (NYSTOP) 796312 UNIT/GM powder Apply topically to affected area [...] ONCE DAILY 180 Tab 1 02/26/2020 Active cefdinir (OMNICEF) 300 MG Capsule Take 1 Cap by mouth every 12 hours. For 10 days. 20 Cap 0 02/27/2020 Active documented as of this encounter (statuses as of 02/27/2020) Active Problems Problem Noted Date Iron deficiency [...] as of this encounter (statuses as of 02/27/2020) Resolved Problems Problem Noted Date Resolved Date [...] pain 01/24/2012 01/17/2017 Genetic Sleep Disorder Research Other*[id number] 05/13/2011 04/07/2016 Obstructive sleep apnea 01/18/2011 12/27/19 [...] as of this encounter (statuses as of 02/27/2020) Immunizations Name Administration Dates Next Due HEP [...] encounter Miscellaneous Notes * Telephone Encounter - Lynsey Ferrari OSA - 02/27/2020 12:41 PM EDT I called to make hospital discharge f/up appointment for patient. Got the pediatric urologist's vmail, so left vmail to call patient with hospital f/up appointment. documented in this encounter Plan of Treatment Upcoming Encounters Date Type Specialty Care Team Description 02/28/2020 Telemedicine [facility]astroenterology [facility] Stout [facility] [address] [facility] [address] [phone] 03/05/2020 Imaging Radiology 04/09/2020 Office Visit Family Medicine Rajwinder Carter DO [address] [facility] [place] [address] 04/29/2020 Nutrition Services Gastroenterology Melissa Omalley RDN [address] [place] [address] 05/06/2020 Office Visit Gynecology Obstetrics Aman Small CNM [address] [place] [address] 06/30/2020 Office Visit Hematology Oncology Tono Sanchez MD [address] [place] [address], [place] [address] [phone] 09/03/2020 Imaging Radiology Health Maintenance Due Date [...] on File Type Date Recorded Patient Pipe Organ Tuner And Repairer 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
--- OUTSIDE RECORDS SUMMARY | 2023-05-10 22:39 | External Medical Summary | Summary of Care ---
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 02/13/2018 Chronic indwelling Clnie [...] pain 01/24/2012 01/17/2017 Genetic Sleep Disorder Research Other*[id number] 05/13/2011 04/07/2016 Obstructive sleep apnea 01/18/2011 12/27/19 [...] 02/28/2020 Telemedicine Gastroenterology Lyssa Stout CRNP [address] [facility] [place] [address] [phone] 03/05/2020 Imaging Radiology 03/11/2020 Office Visit Family Medicine Rajwinder Carter DO [address] [place] [address] 04/29/2020 Nutrition Services Gastroenterology Melissa Omalley RDN [address] [place] [phone] 05/06/2020 Office Visit Gynecology Obstetrics Aman Small CNM [address] [place] [phone] 06/30/2020 Office Visit Hematology Oncology Tono Sanchez MD 200 [facility], [place] [address] 09/03/2020 Imaging Radiology Health Maintenance Due Date [...] on File Type Date Recorded Patient Conduit Mechanic 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
--- OUTSIDE RECORDS SUMMARY | 2023-05-10 22:39 | External Medical Summary | Summary of Care ---
Author Name Unknown Organization [facility] Address [place] [address] Care Team Providers Care Computer Repair Technician Name Role Phone Rajwinder Carter DO Primary Care Provider [phone] Reason for Visit * Reason Comments Hospital Follow-Up [facility]- kidney stone/b ladder infection Encounter Details Date Type Department Care Team Description 02/24/2020 Telephone [facility] [address] [place] [address] Rajwinder Carter DO [address] [place] [address] [phone] Hospital Follow-Up ([facility]- kidney stone/miguel... Allergies Active Allergy Reactions Severity [...] Dosing Unit 5 10/07/2019 Active nystatin (NYSTOP) 694827 UNIT/GM powder Apply topically to affected area 3 times a day. 60 g 1 10/16/2019 Active BD PEN NEEDLE MINI U/F 31G X 5 MMIndications:Type 2 diabetes mellitus with hemoglobin A1c goal of less than 7.0% ([facility]) use with basaglar at bedtime [...] pain 01/24/2012 01/17/2017 Genetic Sleep Disorder Research Other*[id number] 05/13/2011 04/07/2016 Obstructive sleep apnea 01/18/2011 12/27/19 [...] encounter Miscellaneous Notes * Telephone Encounter - Gael Doan OSA - 02/25/2020 12:19 PM EDT Stefany calling from [facility] with patient on the line - calling to check on the status of request. Patient unaware she had been called to schedule, states she had been having phone issues. Requesting a call back to schedule hospital discharge appointment with Brianne Pal. Thanks. Callback#: [phone] * Telephone Encounter - Talita Caballero OSA - 02/24/2020 12:01 PM EDT VM full Unable to LMOM 02/23 [facility] * Telephone Encounter - Janett Triana OSA - 02/24/2020 9:01 AM EDT No appointments available. Patient declined appointments?: no, pt requesting to be seen in office with Brianne Pal PA-C See Call Details? (Yes or No): yes, hospital discharge [facility] on 02/23/2020 documented in this encounter Plan of Treatment Upcoming Encounters Date Type Specialty Care Team Description 02/28/2020 Telemedicine [facility]astroenterology Lyssa Stout, ZAK [address] [facility] [address] [phone] 03/05/2020 Imaging Radiology 03/11/2020 Office Visit Family Medicine Rajwinder Carter DO [address] [place] [facility] [address] [phone] 04/29/2020 Nutrition Services Gastroenterology Melissa Omalley, SAMANTHA [address] [place] [id number] 05/06/2020 Office Visit Gynecology Obstetrics Aman Small, MANAV [address] [place] [id number] 06/30/2020 Office Visit Hematology Oncology Tono Sanchez MD [address] [facility], [place] [address] 09/03/2020 Imaging Radiology Health Maintenance Due Date [...] Documents on File Type Date Recorded Patient Frame Polisher 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
--- OUTSIDE RECORDS SUMMARY | 2023-05-10 22:40 | External Medical Summary | Summary of Care ---
Author Name Unknown Organization [place] [address] Care Team Providers Care Outside Barrel Lathe Operator Name Role Phone Rajwinder Carter Primary Care Provider [phone] Reason for Visit * Reason Comments Test Results Lab Encounter Details Date Type Department Care Team Description 02/24/2020 Telephone Hematology/Oncology Treatment, [place] [address] [place] [address] Tono Sanchez MD [address] [place] [address] [phone] Test Results Lab Allergies Active Allergy Reactions [...] Dosing Unit 5 10/07/2019 Active nystatin (NYSTOP) 135197 UNIT/GM powder Apply topically to affected area 3 times a day. 60 g 1 10/16/2019 Active BD PEN NEEDLE MINI U/F 31G X 5 MMIndications:Type 2 diabetes mellitus with hemoglobin A1c goal of less than 7.0% ([facility]) use with basaglar at bedtime 100 [...] pain 01/24/2012 01/17/2017 Genetic Sleep Disorder Research Other*[id number] 05/13/2011 04/07/2016 Obstructive sleep apnea 01/18/2011 12/27/19 [...] 02/28/2020 Telemedicine Gastroenterology Lyssa Stout CRNP [address] [facility] [place] [address] [phone] 03/05/2020 Imaging Radiology 03/11/2020 Office Visit Family Medicine Rajwinder Carter DO [address] [facility] [place] [id number] 04/29/2020 Nutrition Services Gastroenterology Melissa Omalley, RDN [address] [place] [id number] 05/06/2020 Office Visit Gynecology Obstetrics Aman Small, CNM [address] [facility] [place] [id number] 06/30/2020 Office Visit Hematology Oncology Tono Sanchez MD 200 [place] [address] [phone] 09/03/2020 Imaging Radiology Scheduled Orders Name Type [...] on File Type Date Recorded Patient Medical Instrument Technician 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
--- OUTSIDE RECORDS SUMMARY | 2023-05-10 22:40 | External Medical Summary | Summary of Care ---
Author Name Unknown Organization [place] [address] Care Team Providers Care Retail Project Merchandiser Name Role Phone Rajwinder Carter Primary Care Provider [phone] Encounter Details Date Type Department Care Team Description 02/13/2020 Scan Encounter Unspecified Department <No scans attached> Allergies Active Allergy Reactions Severity Noted Date Comments Penicillins Rash 02/12/2008 documented as of this encounter (statuses as of 02/14/2020) Medications Medication Sig Dispensed Refills Start Date [...] Dosing Unit 5 10/07/2019 Active nystatin (NYSTOP) 527351 UNIT/GM powder Apply topically to affected area [...] 01/30/2020 Active cefdinir (OMNICEF) 300 MG Capsule 0 01/20/2020 Active levothyroxine (LEVOXYL) 200 MCG Tablet Take 1 Tab by mouth daily. 0 01/19/2020 Active sucralfate (CARAFATE) 1 GM Tablet 0 01/20/2020 Active documented as of this encounter (statuses as of 02/14/2020) Active Problems Problem Noted Date Iron deficiency [...] as of this encounter (statuses as of 02/14/2020) Resolved Problems Problem Noted Date Resolved Date [...] pain 01/24/2012 01/17/2017 Genetic Sleep Disorder Research Other*[id number] 05/13/2011 04/07/2016 Obstructive sleep apnea 01/18/2011 12/27/19 [...] as of this encounter (statuses as of 02/14/2020) Immunizations Name Administration Dates Next Due HEP [...] have Coronavirus / COVID-19? No / Unsure 02/13/2020 11:06 AM EDT documented as of this encounter Plan of Treatment Upcoming Encounters Date Type Specialty Care Team Description 02/18/2020 Office Visit [facility] [address] [facility] [id number] 02/28/2020 Telemedicine Gastroenterology Lyssa Stout CRNP [address] [facility] [place] [address] [phone] 03/11/2020 Office Visit [facility] Rajwinder Lopez DO [address] [facility] [address] 04/29/2020 Nutrition Services Gastroenterology Melissa Omalley, RDN [address] [place] [address] [place] [id number] 05/06/2020 Office Visit [facility]necology Obstetrics Aman Small, CN [facility] [id number] 06/30/2020 Office Visit Hematology Oncology Tono Sanchez MD 200 [place] [address] [phone] 09/03/2020 Imaging Radiology Health Maintenance Due Date Last Done Comments Zoster Vaccines (2 of 3) 02/03/2016 12/09/2015 DIABETES-EYE EXAM 06/12/2019 06/12/2018, , 06/12/2018, Additional history exists PAP SMEAR-EVERY 3 YRS,AGES 21-65 10/10/2019 10/10/2016, 07/02/2014, 04/16/2013, Additional history exists DIABETES-URINE MICROALBUMIN EVERY 12 MONTHS 01/12/2020 01/11/2019, 08/24/2018, 07/19/2018, Additional history exists DIABETES-HGBA1C EVERY 6 MONTHS 05/28/2020 11/26/2019, 11/11/2019, 04/05/2019, Additional history exists BREAST CANCER SCREENING DISCUSSION YEARLY AGES 40-75 09/02/2020 09/02/2019, 04/04/2018, 01/18/2017, Additional history exists DIABETES-FOOT EXAM 11/06/2020 11/06/2019, 0 01/09/2019, 12/26/2017, Additional history exists Yearly B-12 11/10/2020 11/11/2019, 12/10, 02/13/2018 DTaP,Tdap,and Td Vaccines (3 - Td) 05/01/2027 [...] Documents on File Type Date Recorded 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
--- OUTSIDE RECORDS SUMMARY | 2023-05-10 22:40 | External Medical Summary | Summary of Care ---
Author Name Unknown Organization [facility] Address [place] [address] Care Team Providers Care Rn Tele Name Role Phone Rajwinder Carter DO Primary Care Provider [phone] Reason for Visit * Reason Comments Medication Question Encounter Details Date Type Department Care Team Description 02/18/2020 Telephone [facility] [address] [place] [address] Rajwinder Carter DO [address] [place] [address] Medication Question Allergies Active Allergy Reactions Severity Noted Date Comments Penicillins Rash 02/12/2008 documented as of this encounter (statuses as of 02/20/2020) Medications Medication Sig Dispensed Refills Start Date [...] 4 09/13/2019 Active pantoprazole (PROTONIX) 20 MG TBECIndications:Ga stroesophageal [...] Dosing Unit 5 10/07/2019 Active nystatin (NYSTOP) 085405 UNIT/GM powder Apply topically to affected area [...] (OMNICEF) 300 MG Capsule 0 01/20/2020 Active sucralfate (CARAFATE) 1 GM Tablet 0 01/20/2020 Active levothyroxine (LEVOXYL) 200 MCG Tablet Take 1 Tab by mouth daily. 90 Tab 3 02/20/2020 Active levothyroxine (LEVOXYL) 200 MCG Tablet Take 1 Tab by mouth daily. 0 01/19/2020 0 Discontinue d(Refill) documented as of this encounter (statuses as of 02/20/2020) Active Problems Problem Noted Date Iron deficiency [...] as of this encounter (statuses as of 02/20/2020) Resolved Problems Problem Noted Date Resolved Date [...] pain 01/24/2012 01/17/2017 Genetic Sleep Disorder Research Other*[id number] 05/13/2011 04/07/2016 Obstructive sleep apnea 01/18/2011 12/27/19 [...] 05/07/2012 Sleep apnea 02/08/2008 03/28/2012 Overview: Compliance 4/12 [...] as of this encounter (statuses as of 02/20/2020) Immunizations Name Administration Dates Next Due HEP [...] have Coronavirus / COVID-19? Unable to assess 02/17/2020 2:49 PM EDT documented as of this encounter Miscellaneous Notes * Telephone Encounter - Rajwinder Carter DO - 02/20/2020 1:39 PM EDT Rx sent. * Telephone Encounter - Jarett Kaiser PHARM Tech - 02/18/2020 4:19 PM EDT [facility] calling requesting the following medication below that is listed as "Historical". The following information was provided: Medication Name: Levothyroxine Strength: 200 mcg Directions: Take 1 tab by mouth daily. Preferred Quantity: NA Previous Prescriber: Hospitalist Preferred Pharmacy: [facility] Dosage was adjusted by Hospitalist for pt. Requested to be sent to PCP to be filled for pt. Please review and approve if appropriate. Thank You, Jarett Kaiser Acquisition Specialist [facility] 02/18/2020, 4:19 PM documented in this encounter Plan of Treatment Upcoming Encounters Date Type Specialty Care Team Description 02/21/2020 Office Visit Family Medicine Brianne Pal PA-C [address] [facility] [place] [address] 02/28/2020 Telemedicine Gastroenterology Lyssa Stout CRNP [address] [facility] [place] [address] [phone] 03/11/2020 Office Visit Family Medicine Rajwinder Carter DO [address] [facility], [place] [address] [phone] 04/29/2020 Nutrition Services Gastroenterology Melissa Omalley, RDN [address] [place] [phone] 05/06/2020 Office Visit Gynecology Obstetrics Aman Small, CNM [address] [place] [id number] 06/30/2020 Office Visit Hematology Oncology Tono Sanchez MD 200 [place] [address] [phone] 09/03/2020 Imaging Radiology Health Maintenance Due Date [...] Documents on File Type Date Recorded Patient Tour Driver 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
--- OUTSIDE RECORDS SUMMARY | 2023-05-10 22:40 | External Medical Summary ---
Author Name Unknown Address [place] [address] Phone Organization K01:[place] [address] [place] [address] [id number] Laboratory Report Ordering Provider Test Date Status SEBASTIÁN KOEHLER 02/21/2020 11:43:00 Final Observation Date Value Abnormality Reference (Units ) Status Vitamin B12 02/21/2020 21:19 330 626-2760 (p g/mL) Final Performing Location [address] [address]
--- OUTSIDE RECORDS SUMMARY | 2023-05-10 22:40 | External Medical Summary | Summary of Care ---
Author Name Unknown Organization [facility] Address [place] [address] Care Team Providers Care Is Technician Name Role Phone Rajwinder Carter DO Primary Care Provider [phone] Reason for Visit * Reason Comments FYI Encounter Details Date Type Department Care Team Description 02/13/2020 Telephone [facility] [address] [place] [address] Rajwinder Carter DO [address] [place], [place] [id number] FYI Allergies Active Allergy Reactions Severity Noted Date Comments Penicillins Rash 02/12/2008 documented as of this encounter (statuses as of 02/13/2020) Medications Medication Sig Dispensed Refills Start Date [...] Dosing Unit 5 10/07/2019 Active nystatin (NYSTOP) 414223 UNIT/GM powder Apply topically to affected area [...] as of this encounter (statuses as of 02/13/2020) Active Problems Problem Noted Date Iron deficiency [...] as of this encounter (statuses as of 02/13/2020) Resolved Problems Problem Noted Date Resolved Date [...] pain 01/24/2012 01/17/2017 Genetic Sleep Disorder Research Other*[id number] 05/13/2011 04/07/2016 Obstructive sleep apnea 01/18/2011 12/27/19 [...] as of this encounter (statuses as of 02/13/2020) Immunizations Name Administration Dates Next Due HEP [...] Miscellaneous Notes * Telephone Encounter - Marii Reyes OSA - 02/13/2020 2:46 PM EDT Karine from [facility] calling states they received a referral from Dr. Carter and they just wanted to let PCP know that patient is already being seen with them, last seen Jun 2019 and has her yearly follow up 06/30/20 w/ Simeon Quesada. documented in this encounter Plan of Treatment Upcoming Encounters Date Type Specialty Care Team Description 02/18/2020 Office Visit Family Medicine [facility]winder Carter DO [address] [facility] [place] [address] 02/28/2020 Telemedicine Gastroenterology Lyssa Stout CRNP 132 [facility] [place] [address] [phone] 03/11/2020 Office Visit Family [facility]winder Lopez DO [address] [facility] [place] [address] 04/29/2020 Nutrition Services Gastroenterology Melissa Omalley RDN [address] [place] [address] [phone] 05/06/2020 Office Visit Gynecology Obstetrics Aman Small, MANAV [address] [place] [address] [phone] 06/30/2020 Office Visit Hematology Oncology Tono Sanchez MD 200 [facility], [place] [address] 09/03/2020 Imaging Radiology Health Maintenance Due Date [...] Additional history exists Yearly B-12 11/10/2020 11/11/2019, 0401/2019, 02/13/2018 DTaP,Tdap,and Td Vaccines (3 - Td) [...] Documents on File Type Date Recorded Patient Referral Specialist 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
--- OUTSIDE RECORDS SUMMARY | 2023-05-10 22:40 | External Medical Summary ---
Author Name Unknown Address [facility] [place] [address] Phone Organization K01:[place] [address] Laboratory Report Ordering Provider Test Date Status SEBASTIÁN KOEHLER 02/21/2020 11:43:00 Final Observation Date Value Abnormality Reference (Units ) Status LDL, (direct) 02/21/2020 20:43 46 0-129 (mg /dL) Final Performing Location [place] [id number]
--- OUTSIDE RECORDS SUMMARY | 2023-05-10 22:40 | External Medical Summary ---
Author Name Unknown Address [facility] [address] Phone Organization K01:[place] [address] [place] [address] [id number] Laboratory Report Ordering Provider Test Date Status ZAKIALEXIESPERANZA 02/21/2020 11:43:00 Final Observation Date Value Abnormality Reference (Units ) Status HbA1C 02/21/2020 20:45 6.7 Above high normal 4.0-5 .6 (%) Final Performing Location [place] [address] [place] [address] [id number]
--- OUTSIDE RECORDS SUMMARY | 2023-05-10 22:40 | External Medical Summary ---
Author Name Unknown Address [address] [place] [address] Phone Organization K01:[facility] [address] [facility] [address] Laboratory Report Ordering Provider Test Date Status JACOB CORBETT 02/21/2020 11:44:00 Final Observation Date Value Abnormality Reference (Units) Status WBC, Total 02/21/2020 23:24 3.24 Below low normal 4.00-10.80 (K/uL) Final RBC 02/21/2020 23:24 2.96 Below low normal 3.85-5.15 (M/uL) Final Hemoglobin 02/21/2020 23:24 9.7 Below low normal 12.0-15.3 (g/dL) Final HCT 02/21/2020 23:24 32.5 Below low normal 36.0-45.2 (%) Final MCV 02/21/2020 23:24 109.8 Above high normal 81.5-97.5 (fL) Final MCH 02/21/2020 23:24 32.8 27.0-34.0 (pg) Final MCHC 02/21/2020 23:24 29.8 Below low normal 32.0-36.0 (g/dL) Final RDW 02/21/2020 23:24 18.8 Above high normal 11.5-15.5 (%) Final Platelets 02/21/2020 23:24 76 Below low normal 140-400 (K/uL) Final MPV 02/21/2020 23:24 NO RESULT - ABNORMAL PLATELET DISTRIBUTION 6.6-11.1 (fL) Final nRBC/100 WBC Bld Auto-Rto 02/21/2020 23:24 1 Above high normal 0 (/100 WBCs) Final Segs 02/21/2020 23:25 60.8 40-75 (%) Final Lymphs % 02/21/2020 23:25 24.7 18-42 (%) Final Monos 02/21/2020 23:25 7.1 1-11 (%) Final Eosinophils 02/21/2020 23:25 5.9 0-6 (%) Final Basos 02/21/2020 23:25 1.2 0-2 (%) Final Immature Granulocyte, Percent 02/21/2020 23:25 0.3 0-2 (%) Final Neutrophils Bld 02/21/2020 23:25 1.97 1.8-7.7 (K/uL) Final Lymphs, absolute 02/21/2020 23:25 0.80 Below low normal 1.0-4.8 (K/uL) Final Monos, Abs 02/21/2020 23:25 0.23 0.0-1.1 (K/uL) Final Eos, Abs 02/21/2020 23:25 0.19 0.0-0.7 (K/uL) Final Basos, Abs 02/21/2020 23:25 0.04 0.0-0.2 (K/uL) Final Immature Granulocytes, Number 02/21/2020 23:25 0.01 0.0-0.2 (K/uL) Final Anisocytosis Bld Ql Smear 02/21/2020 23:25 SLIGHT Final Macrocytes Bld Ql Smear 02/21/2020 23:25 PRESENT Final Elliptocytes Bld Ql Smear 02/21/2020 23:25 FEW Final Dacryocytes Bld Ql Smear 02/21/2020 23:25 FEW Final Performing Location [facility] [address] [facility] [address]
--- OUTSIDE RECORDS SUMMARY | 2023-05-10 22:40 | External Medical Summary | Summary of Care ---
Author Name Unknown Organization [place] [address] Care Team Providers Care Loom Changer Name Role Phone Rajwinder Carter Primary Care Provider [phone] Encounter Details Date Type Department Care Team [...] Dosing Unit 5 10/07/2019 Active nystatin (NYSTOP) 766179 UNIT/GM powder Apply topically to affected area [...] pain 01/24/2012 01/17/2017 Genetic Sleep Disorder Research Other*[id number] 05/13/2011 04/07/2016 Obstructive sleep apnea 01/18/2011 12/27/19 [...] CRNP [address] [facility] [place] [address] [phone] 03/05/2020 Imaging Radiology 03/11/2020 Office Visit Family Medicine Rajwinder Carter DO [address] [place] [address] 04/29/2020 Nutrition Services Gastroenterology Melissa Omalley RDN [address] [place] [id number] 05/06/2020 Office Visit Gynecology Obstetrics Aman Small, MANAV [address] [place] [id number] 06/30/2020 Office Visit Hematology Oncology Tono Sanchez MD [address] [facility], [place] [address] 09/03/2020 Imaging Radiology Health Maintenance Due Date [...] Documents on File Type Date Recorded 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
--- OUTSIDE RECORDS SUMMARY | 2023-05-10 22:40 | External Medical Summary ---
Author Name Unknown Address [facility] [place] [address] Phone Organization K01:[place] [address] [place] [address] [id number] Laboratory Report Ordering Provider Test Date Status SEBASTIÁN KOEHLER 02/21/2020 11:43:00 Final Observation Date Value Abnormality Reference (Units ) Status TSH 02/21/2020 21:19 5.15 Above high normal 0.27- 4.2 (uIU/mL) Final T4, Free 02/21/2020 21:39 1.54 0.9-1.7 (ng/d L) Final Performing Location [place] [address] [address] [facility] [address]
--- OUTSIDE RECORDS SUMMARY | 2023-05-10 22:40 | External Medical Summary | Summary of Care ---
Author Name Unknown Organization [facility] Address [place] [address] Care Team Providers Care Auto Air Conditioning Apprentice Name Role Phone Rajwinder Carter DO Primary Care Provider [phone] Reason for Visit * Reason Comments Appointment Canceled Encounter Details Date Type Department Care Team Description 02/17/2020 Telephone [facility] [address] [place] [address] Rajwinder Carter DO [address] [place] [address] [phone] Appointment Canceled Allergies Active Allergy Reactions Severity Noted Date Comments Penicillins Rash 02/12/2008 documented as of this encounter (statuses as of 02/17/2020) Medications Medication Sig Dispensed Refills Start Date [...] Dosing Unit 5 10/07/2019 Active nystatin (NYSTOP) 537114 UNIT/GM powder Apply topically to affected area 3 times a day. 60 g 1 10/16/2019 Active BD PEN NEEDLE MINI U/F 31G X 5 MMIndications:Type 2 diabetes mellitus with hemoglobin A1c goal of less than 7.0% ([facility]) use with basaglar at bedtime [...] as of this encounter (statuses as of 02/17/2020) Active Problems Problem Noted Date Iron deficiency [...] as of this encounter (statuses as of 02/17/2020) Resolved Problems Problem Noted Date Resolved Date [...] pain 01/24/2012 01/17/2017 Genetic Sleep Disorder Research Other*[id number] 05/13/2011 04/07/2016 Obstructive sleep apnea 01/18/2011 12/27/19 [...] as of this encounter (statuses as of 02/17/2020) Immunizations Name Administration Dates Next Due HEP [...] Miscellaneous Notes * Telephone Encounter - Dharmesh Henry OSA - 02/17/2020 2:53 PM EDT Pt is scheduled for 02/18/20 at 1:00 w/ Dr. Carter for a [facility] ER f/u (02/10/20). Clinic needs to rescheduled this appt. No MyG for patient. Unable to reach pt by phone (#1 phone # vmbox is full, #2 vmbox is not set up. Spouse's vmbox is full and so is other ER contact's vmbox). Pt is rescheduled for 02/21/20 at 10:25am with Brianne Pal at [place] documented in this encounter Plan of Treatment Upcoming Encounters Date Type Specialty Care Team Description 02/21/2020 Office Visit Family Medicine Brianne Pal PA-C [address] [facility] [address] [phone] 02/28/2020 Telemedicine Gastroenterology Lyssa Stout CRNP [address] [facility] [place] [address] [phone] 03/11/2020 Office Visit Family Medicine [facility]winder Carter DO [address] [facility] [place] [id number] 04/29/2020 Nutrition Services Gastroenterology Melissa Omalley, SAMANTHA [address] [place] [phone] 05/06/2020 Office Visit Gynecology Obstetrics Aman Small, CNM [address] [place] [address] [phone] 06/30/2020 Office Visit Hematology Oncology Tono Sanchez MD 200 [place] [address] [phone] 09/03/2020 Imaging Radiology Health Maintenance Due Date [...] on File Type Date Recorded 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
--- OUTSIDE RECORDS SUMMARY | 2023-05-10 22:40 | External Medical Summary ---
Author Name Unknown Address [address] [place] [address] [phone] Phone Organization K01:[facility] [address] [place] [address] [id number] Laboratory Report Ordering Provider Test Date Status JACOB CORBETT 02/21/2020 11:44:00 Final Observation Date Value Abnormality Reference (Units ) Status Iron 02/21/2020 21:03 303 Above high normal 33-151 (ug/dL) Final Iron-binding capacity 02/21/2020 21:03 303 250-425 (ug/dL) Final Transferrin Sat % 02/21/2020 21:03 100 Above high normal 15-55 (%) Final Performing Location [facility] [address] [facility] [address]
--- OUTSIDE RECORDS SUMMARY | 2023-05-10 22:40 | External Medical Summary ---
Author Name Unknown Address [facility] [place] [address] Phone Organization K01:[facility] [address] [place] [address] Laboratory Report Ordering Provider Test Date Status LEXI KOEHLERSEPERANZA 02/21/2020 11:43:00 Final Observation Date Value Abnormality Reference (Units ) Status 25-OH Vitamin D total 02/21/2020 21:19 42 > 19 (ng/mL) Final Performing Location [place] [address] [place] [address] [id number]
--- OUTSIDE RECORDS SUMMARY | 2023-05-10 22:40 | External Medical Summary ---
Author Name Unknown Address [address] [place] [phone] Phone Organization K01:[facility] [address] [place] [address] [id number] Laboratory Report Ordering Provider Test Date Status SEBASTIÁN KOEHLER 02/21/2020 11:43:00 Final Observation Date Value Abnormality Reference (Units ) Status BUN 02/21/2020 20:43 10 6-20 (mg/dL) Final Creatinine 02/21/2020 20:43 0.6 0.5-1.0 (mg/ dL) Final E Glom Filt Rate 02/21/2020 20:43 >60.0 >60 Final Performing Location [facility] [address] [facility] [address]
--- OUTSIDE RECORDS SUMMARY | 2023-05-10 22:40 | External Medical Summary ---
Author Name Unknown Address [address] [phone] Phone Organization K01:[facility] [address] [place] [address] [id number] Laboratory Report Ordering Provider Test Date Status JACOB CORBETT 02/21/2020 11:44:00 Final Observation Date Value Abnormality Reference (Units ) Status Ferritin 02/21/2020 20:56 126.6 13-150 (ng/mL ) Final Performing Location [place] [address] [facility] [address]
--- OUTSIDE RECORDS SUMMARY | 2023-05-10 22:40 | External Medical Summary | Summary of Care ---
Author Name Unknown Organization [facility] Address [facility] [place] [address] Care Team Providers Care Case Technician Name Role Phone Rajwinder Carter Primary Care Provider [phone] Reason for Referral * Precert (Routine) Status Reason Specialty Diagnoses / Procedures Referred By Contact Referred To Contact Pending Review Precert Radiology Diagnoses Headache, unspecified headache type Diplopia Procedures MRI BRAIN WITHOUT CONTRAST Brianne Pal PA-C [address] [place] [address] Reason for Visit * Reason Comments Emergency Department Follow-Up Encounter Details Date Type Department Care Team Description 02/21/2020 Office Visit [facility] [address] [place] [address] Brianne Pal PA-C [address] [place] [address] DM type 2 with diabetic peripheral neuropathy (HCC)*; Cerebral palsy, unspecified type (HCC); Cirrhosis of liver without ascites, unspecified hepatic cirrhosis type (HCC); Fatigue, unspecified type; Dark stools; Body mass index (BMI) 50.0-59.9, adult (HCC) ; Headache, unspecified headache type; Diplopia Allergies Active Allergy Reactions Severity Noted Date Comments Penicillins Rash 02/12/2008 documented as of this encounter (statuses as of 02/21/2020) Medications Medication Sig Dispensed Refills Start Date [...] Dosing Unit 5 10/07/2019 Active nystatin (NYSTOP) 815442 UNIT/GM powder Apply topically to affected area 3 times a day. 60 g 1 10/16/2019 Active BD PEN NEEDLE MINI U/F 31G X 5 MMIndications:Type 2 diabetes mellitus with hemoglobin A1c goal of less than 7.0% ([facility]) use with basaglar at bedtime [...] as of this encounter (statuses as of 02/21/2020) Active Problems Problem Noted Date Iron deficiency [...] as of this encounter (statuses as of 02/21/2020) Resolved Problems Problem Noted Date Resolved Date [...] pain 01/24/2012 01/17/2017 Genetic Sleep Disorder Research Other*[id number] 05/13/2011 04/07/2016 Obstructive sleep apnea 01/18/2011 12/27/19 [...] as of this encounter (statuses as of 02/21/2020) Immunizations Name Administration Dates Next Due HEP [...] Reading Time Taken Comments Blood Pressure 128/80 02/21/2020 10:40 AM EDT Pulse 64 02/21/2020 10:40 AM EDT Temperature 36.7 C (98 F) 02/21/2020 10:40 AM EDT Respiratory Rate 20 02/21/2020 10:40 AM EDT Oxygen Saturation 92% 02/21/2020 10:40 AM EDT Inhaled Oxygen Concentration - - Weight - - Height 149.9 cm (4' 11") 02/21/2020 10:40 AM EDT Body Mass Index - - documented in this encounter Progress Notes * Brianne Pal PA-C - 02/21/2020 10:56 AM EDT Subjective: Shaina Bustos is a 64 year old female. Chief Complaint Patient presents with Emergency Department Follow-Up HPI: Here for er f/u. She was at [facility] for fatigue. Observed. Basically she had a treatment of venofer the same day and they felt she was fatigued as it had not helped her yet. She has continued fatigue at this time. She has been told that her blood counts are going up. She had 2 bm yesterday and both were tarry. They cannot seem to tell her where the blood is going. She is very weak. Cannot stand anymore. Has noted some double vision. Comes and goes. Lays in bed and sometimes she can see normally, othertimes it is double. The other night she had a hard time seeing. Some headache with this. She has not seen the eye doctor since the end of last year. She sees an eye doctor in [place]. She was lastseen in August. She is very upset that she is getting the run around. Her counts go up and down. No one can tell her why. She has had venofer and transfusions and no one gets to the bottom of it. PHM: Patient Active Problem List Diagnosis Code [...] Chronic pain syndrome G89.4 MEDICATION USE AGREEMENT [id number] History of Clostridium difficile colitis Z86.19 Cirrhosis of liver (HCC) K74.60 THAD on CPAP G47.33, Z99.89 Wheelchair dependent Z99.3 History of recent fall Z91.81 Pancytopenia ([facility]) D61.818 Ambulatory dysfunction R26.2 Fall W19.XXXA Sprain of right ankle S93.401A DM type 2 with diabetic peripheral neuropathy ([facility]) E11.42 Insomnia G47.00 Recurrent major depressive disorder, in partial remission ([facility]) F33.41 Impaired mobility and ADLs Z74.09 [...] the skin at bedtime 30 mL 0 potassium chloride ER 10 [...] at bedtime 100 Each 10 nystatin (NYSTOP) 903587 UNIT/GM powder Apply topically to affected area [...] Allergen Reactions Pcn [Penicillins] Rash Objective: BP 128/80 | Pulse 64 | Temp (Src) 98 (Tympanic) | Resp 20 | Ht 4' 11" (1.499m) | Wt (0.000kg) | BMI57.16 kg/m | BSA 2.31 m | SaO2 92% General: alert, healthy and no distress Head: Normocephalic, No masses, lesions, tenderness or abnormalities Eye Exam: PERRLA, EOMI, sclera clear, anicteric Heart: regular rate & rhythm, no gallops, [...] are normal, no rashes or significant lesions ASSESSMENT/PLAN: DM type 2 with diabetic peripheral neuropathy (HCC) (Primary) - HEMOGLOBIN A1C; Future; Expected date: 02/21/2020 - ALBUMIN / CREATININE RATIO, URINE; Future; Expected date: 02/21/2020 - LDL (DIRECT MEASURE); Future; Expected date: 02/21/2020 - COMPR METAB PANEL; Future; Expected date: 02/21/2020 Cerebral palsy, unspecified type (HCC) Cirrhosis of liver without ascites, unspecified hepatic cirrhosis type (HCC) Fatigue, unspecified type - TSH WITH FREE T4 IF INDICATED; Future; Expected date: 02/21/2020 - 25-HYDROXY VITAMIN D; Future; Expected date: 02/21/2020 - VITAMIN B12; Future; Expected date: 02/21/2020 Dark stools Body mass index (BMI) 50.0-59.9, adult (HCC) - 25-HYDROXY VITAMIN D; Future; Expected date: 02/21/2020 Headache, unspecified headache type - MRI BRAIN WITHOUT CONTRAST; Future; Expected date: 02/21/2020 Diplopia - MRI BRAIN WITHOUT CONTRAST; Future; Expected date: 02/21/2020 Patient needs MRI . Has new onset diplopia and headaches. Needs MRI brain and needs to see her eye doctor. Sees GI - seeing Lyssa on the of this month. She basically really wants to know why she keepshaving dark stools. She has not had colo for close to a year now and egd was September. She cannot recall that she has ever had a capsule endoscopy done. I will communicate with GI to see if they feel this should be done and if they should repeat her egd / colo. Brianne Pal PA-C 02/21/2020 11:16 AM documented in this encounter Nursing Notes * Keyonna Barillas LPN - 02/21/2020 10:39 AM EDT Patient c/o dizziness and blurry vision. documented in this encounter Plan of Treatment Upcoming Encounters Date Type Specialty Care Team Description 02/28/2020 Telemedicine Gastroenterology Lyssa Stout CRNP [address] [facility] [place] [address] [phone] 03/05/2020 Imaging Radiology 03/11/2020 Office Visit Family Medicine [facility]winder Carter DO [address] [facility] [address] [phone] 04/29/2020 Nutrition Services Gastroenterology Melissa Omalley RDN [address] [place] [id number] 05/06/2020 Office Visit Gynecology Obstetrics Aman Small, BOO [address] [facility] [place] [id number] 06/30/2020 Office Visit Hematology Oncology Tono Sanchez MD [address] [facility] [place] [address] [phone] 09/03/2020 Imaging Radiology Scheduled Orders Name Type Priority Associated Diagnoses Orde r Schedule HEMOGLOBIN A1C Lab Routine DM type 2 with diabetic peripheral neuropathy (HCC) Expected: 02/21/2020 (Approximate), Expires: 02/20/2021 ALBUMIN / CREATININE RATIO, URINE Lab Routine DM type 2 with diabetic peripheral neuropathy (HCC) Expected: 02/21/2020 (Approximate), Expires: 02/20/2021 LDL (DIRECT MEASURE) Lab Routine DM type 2 with diabetic peripheral neuropathy (HCC) Expected: 02/21/2020 (Approximate), Expires: 02/20/2021 COMPR METAB PANEL Lab Routine DM type 2 with diabetic peripheral neuropathy (HCC) Expected: 02/21/2020 (Approximate), Expires: 02/20/2021 TSH WITH FREE T4 IF INDICATED Lab Routine Fatigue, unspecified type Expected: 02/21/2020 (Approximate), Expires: 02/20/2021 25-HYDROXY VITAMIN D Lab Routine Body mass index (BMI) 50.0-59.9, adult (HCC) Fatigue, unspecified type Expected: 02/21/2020 (Approximate), Expires: 02/20/2021 VITAMIN B12 Lab Routine Fatigue, unspecified type Expected: 02/21/2020 (Approximate), Expires: 02/20/2021 MRI BRAIN WITHOUT CONTRAST Medical Imaging Routine Headache, unspecified headache type Diplopia Expected: 02/21/2020, Expires: 08/21/2020 Health Maintenance Due Date Last Done Comments [...] with neurological manifestations, not stated as uncontrolled Cerebral palsy, unspecified type (HCC) Cirrhosis of liver without ascites, unspecified hepatic cirrhosis type (HCC) Fatigue, unspecified type Dark stools Nonspecific abnormal finding in stool contents Body mass index (BMI) 50.0-59.9, adult (HCC) Headache, unspecified headache type Diplopia documented in this encounter Advance Directives Documents on File Type Date Recorded 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
--- OUTSIDE RECORDS SUMMARY | 2023-05-10 22:41 | External Medical Summary | Summary of Care ---
Author Name Unknown Organization [place] [address] Care Team Providers Care Bus Repair Supervisor Name Role Phone JohnbrianRajwinder thacker Primary Care Provider [phone] Reason for Visit * Reason Comments Treatment Venofer Encounter Details Date Type Department Care Team Description 02/10/2020 Documentation Hematology/Oncology Treatment, [place] [address] [place] [address] Maryellen, Chair [address] Hem On[address]ery [address] [place] [address] [phone] Iron deficiency anemia due to chronic blood loss* Allergies Active Allergy Reactions Severity Noted Date Comments Penicillins Rash 02/12/2008 documented as of this encounter (statuses as of 02/11/2020) Medications Medication Sig Dispensed Refills Start Date [...] Dosing Unit 5 10/07/2019 Active nystatin (NYSTOP) 962651 UNIT/GM powder Apply topically to affected area 3 times a day. 60 g 1 10/16/2019 Active BD PEN NEEDLE MINI U/F 31G X 5 MMIndications:Type 2 diabetes mellitus with hemoglobin A1c goal of less than 7.0% ([facility]) use with basaglar at bedtime 100 [...] as of this encounter (statuses as of 02/11/2020) Active Problems Problem Noted Date Iron deficiency anemia due to chronic bl ood loss 12/03/2019 Splenomegaly 12/03/2019 Thrombocytopenia 05/02/2019 Gastroesophageal reflux disease 07/29/20 19 History of kidney stones 04/08/2019 History [...] as of this encounter (statuses as of 02/11/2020) Resolved Problems Problem Noted Date Resolved Date [...] pain 01/24/2012 01/17/2017 Genetic Sleep Disorder Research Other*[id number] 05/13/2011 04/07/2016 Obstructive sleep apnea 01/18/2011 12/27/19 [...] as of this encounter (statuses as of 02/11/2020) Immunizations Name Administration Dates Next Due HEP [...] have Coronavirus / COVID-19? No / Unsure 02/10/2020 1:05 PM EDT documented as of this encounter Progress Notes * Cecilio Rosen RN - 02/11/2020 8:30 AM EDT Patient in IVC for Venofer #4 of 4. This RN unable to start IV. Jacqueline Rn attempted also. Patient decided to reschedule appointment. Cecilio Rosen RN 02/11/2020 8:30 AM documented in this encounter Nursing Notes * Data, Entry - 02/11/2020 5:33 AM EDT Automated conversion to a Documentation Encounter documented in this encounter Miscellaneous Notes * Addendum Note - Cecilio Rosen RN - 02/11/2020 8:32 AM EDT Addended by: CECILIO ROSEN on: 02/11/2020 08:32 AM Modules accepted: Orders, SmartSet * Addendum Note - Cecilio Rosen RN - 02/11/2020 8:31 AM EDT Addended by: CECILIO ROSEN on: 02/11/2020 08:31 AM Modules accepted: SmartSet documented in this encounter Plan of Treatment Upcoming Encounters Date Type Specialty Care Team Description 02/11/2020 Hem/Onc Treatment Hematology Oncology [place], Chair [address] Hem Onc Sc[address] [place] [address] [phone] 02/11/2020 Office Visit Family Medicine Rajwinder Carter, DO [address] [facility] [address] [phone] 02/28/2020 Telemedicine Gastroenterology Lyssa Stout CRNP [address] [facility] [place] [address] [phone] 03/11/2020 Office Visit Family Medicine Rajwinder Carter, DO [address] [facility] [id number] 04/29/2020 Nutrition Services Gastroenterology Melissa Omalley, [place] [address] [place] [id number] 05/06/2020 Office Visit Gynecology Obstetrics Aman Small, BOOM [address] [place] [id number] 06/30/2020 Office Visit Hematology Oncology Tono Sanchez MD [address] [place] [address] [phone] 09/03/2020 Imaging Radiology Health Maintenance Due Date [...] on File Type Date Recorded Patient Remote Encoding Center Manager 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
--- OUTSIDE RECORDS SUMMARY | 2023-05-10 22:41 | External Medical Summary | Summary of Care ---
Author Name Unknown Organization [facility] Address [place] [address] Care Team Providers Care Soil Chemist Name Role Phone Rajwinder Carter DO Primary Care Provider [phone] Reason for Visit * Reason Comments Scheduling Encounter Details Date Type Department Care Team Description 02/11/2020 Telephone [facility] [address] [place] [address] Rajwinder Carter DO [address] [place] [address] Scheduling Allergies Active Allergy Reactions Severity Noted [...] Dosing Unit 5 10/07/2019 Active nystatin (NYSTOP) 790861 UNIT/GM powder Apply topically to affected area [...] pain 01/24/2012 01/17/2017 Genetic Sleep Disorder Research Other*[id number] 05/13/2011 04/07/2016 Obstructive sleep apnea 01/18/2011 12/27/19 [...] Telephone Encounter - Carrie Saini OSA - 02/11/2020 1:19 PM EDT Faxed to [facility] * Telephone Encounter - Marie Magallanes OSA - 02/11/2020 12:21 PM EDT Pt calling to see if a Urology appt can be scheduled for her. There's a referral placed for chronicUTI's. Pt states she wants to go to [facility] [address] for this. Please advise pt. documented in this encounter Plan of Treatment Upcoming Encounters Date Type Specialty Care Team Description 02/13/2020 Hem/Onc Treatment Hematology Oncology [place], Chair 10 Hem Onc Scenery [address] [facility] [place] [address] [phone] 02/18/2020 Office Visit Family [facility]winder Lopez, DO [address] [facility] [id number] 02/28/2020 Telemedicine Gastroenterology Lyssa Stout CRNP [address] [facility] [place] [address] [phone] 03/11/2020 Office Visit Family Rajwinder oLpez DO [address] [facility] [address] [phone] 04/29/2020 Nutrition Services Gastroenterology Melissa Omalley, SAMANTHA [address] [place] [id number] 05/06/2020 Office Visit Gynecology Obstetrics Aman Small, BOOM [address] [place] [id number] 06/30/2020 Office Visit Hematology Oncology Tono Sanchez MD [address] [place] [address] [phone] 09/03/2020 Imaging Radiology Health Maintenance Due Date [...]
--- OUTSIDE RECORDS SUMMARY | 2023-05-10 22:41 | External Medical Summary | Summary of Care ---
Author Name Unknown Organization [place] [address] Care Team Providers Care Laserist Name Role Phone JohnbrianRajwinder thacker Primary Care Provider [phone] Reason for Visit * Reason Comments Treatment Venofer Encounter Details Date Type Department Care Team Description 02/10/2020 Documentation Hematology/Oncology Treatment, [place] [address] [place] [address] Maryellen, Chair 10 Hem Onc Scenery [address] [place] [address] [phone] Iron deficiency anemia due to chronic blood [...] Dosing Unit 5 10/07/2019 Active nystatin (NYSTOP) 083205 UNIT/GM powder Apply topically to affected area [...] pain 01/24/2012 01/17/2017 Genetic Sleep Disorder Research Other*[id number] 05/13/2011 04/07/2016 Obstructive sleep apnea 01/18/2011 12/27/19 [...] [place], Chair 10 Hem Onc Scenery [address] [facility] [place] [address] [phone] 02/11/2020 Office Visit Family Medicine Rajwinder Carter, DO [address] [facility] [address] [phone] 02/28/2020 Telemedicine Gastroenterology Lyssa Stout CRNP [address] [facility] [place] [address] [phone] 03/11/2020 Office Visit Family Medicine Rajwinder Carter, DO [address] [facility] [id number] 04/29/2020 Nutrition Services Gastroenterology Melissa Omalley, [place] [address] [place] [phone] 05/06/2020 Office Visit Gynecology Obstetrics Aman Small, BOOM [address] [place] [id number] 06/30/2020 Office Visit Hematology Oncology Tono Sanchez MD [address] [place] [address] [phone] 09/03/2020 Imaging Radiology Health Maintenance Due Date [...] Documents on File Type Date Recorded 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
--- OUTSIDE RECORDS SUMMARY | 2023-05-10 22:41 | External Medical Summary | Summary of Care ---
Author Name Unknown Organization [place] [address] Care Team Providers Care Anesthesia Director Name Role Phone JohnbrianRajwinder thacker Primary Care Provider [phone] Reason for Visit * Reason Comments IV Therapy Venofer Encounter Details Date Type Department Care Team Description 02/13/2020 Hem/Onc Treatment Hematology/Oncology Treatment, [place] [address] [place] [address] Maryellen, Chair 10 Hem Onc Scenery [address] [place] [address] [phone] Iron deficiency anemia due to chronic blood [...] Dosing Unit 5 10/07/2019 Active nystatin (NYSTOP) 024445 UNIT/GM powder Apply topically to affected area 3 times a day. 60 g 1 10/16/2019 Active BD PEN NEEDLE MINI U/F 31G X 5 MMIndications:Type 2 diabetes mellitus with hemoglobin A1c goal of less than 7.0% ([facility]) use with basaglar at bedtime 100 [...] pain 01/24/2012 01/17/2017 Genetic Sleep Disorder Research Other*[id number] 05/13/2011 04/07/2016 Obstructive sleep apnea 01/18/2011 12/27/19 [...] Sign Reading Time Taken Comments Blood Pressure 126/79 02/13/2020 1:23 PM EDT Pulse 62 02/13/2020 1:23 PM EDT Temperature 36.5 C (97.7 F) 02/13/2020 1:23 PM ED T Respiratory Rate 18 02/13/2020 1:23 PM EDT Oxygen Saturation - - Inhaled Oxygen Concentration - - Weight - - Height - - Body Mass Index - - documented in this encounter Nursing Notes * Renetta Schuler RN - 02/13/2020 3:56 PM EDT Pt completed tx without issues. IV removed; pt tolerated well. Goals: Pt will remain free from injury. Possible barriers to meeting goals: Pt is a high fall risk, uses scooter for mobility. Stability of the patient: Moderately unstable - medium risk of patient condition declining or worsening Summary regarding today's goals: Met: Pt remained free from injury during treatment today. Discharged in stable condition. Return in 4 weeks for labs. No coverage required. * Renetta Schuler RN - 02/13/2020 12:26 PM EDT Pt presents for Venofer, seated in her own WC by chair 7. No issues/concerns to report today. IV established; Venofer infusing. Safety and Risk for Injury Patient will remain free from injury. Ensure appropriate safety devices are available. Provide and maintain safe environment. documented in this encounter Plan of Treatment Upcoming Encounters Date Type Specialty Care Team Description 02/18/2020 Office Visit Family Medicine Rajwinder Crater, DO [address] [facility] [address] 02/28/2020 Telemedicine Gastroenterology Lyssa Stout CRNP [address] [facility] [place] [address] [phone] 03/11/2020 Office Visit Family Rajwinder Lopez, DO [address] [facility] [address] 04/29/2020 Nutrition Services Gastroenterology Melissa Omalley, SAMANTHA [address] [place] [id number] 05/06/2020 Office Visit Gynecology Obstetrics Aman Small, MANAV [address] [facility] [place] [id number] 06/30/2020 Office Visit Hematology Oncology Tono Sanchez MD 200 [facility], [place] [id number] 09/03/2020 Imaging Radiology Scheduled Orders Name Type Priority Associated Diagnoses Orde r Schedule CBC/DIFF Lab Routine Iron deficiency anemia due to chronic blood loss Splenomegaly Expected: 03/12/2020 (Approximate), Expires: 02/12/2021 FERRITIN Lab Routine Iron deficiency anemia due to chronic blood loss Splenomegaly Expected: 03/12/2020 (Approximate), Expires: 02/12/2021 IRON SCREEN, INCLUDING TIBC Lab Routine Iron deficiency anemia due to chronic blood loss Splenomegaly Expected: 03/12/2020 (Approximate), Expires: 02/12/2021 Health Maintenance Due Date Last Done Comments [...] loss (chronic) Splenomegaly documented in this encounter Administered Medications Active Administered Medications - up to 3 most recent administrations Medication Order MAR Action Action Date Dose Rate Site diphenhydrAMINE (BENADRYL) inj 50 mg 50 mg, IV Push, ONCE PRN Other, Hypersensitivity Reaction, Starting [place] 02/13/20 at 1157, Until 02/14/20 at 1156, For 24 hours EPINEPHrine 1 MG/ML inj 0.3 mg 0.3 mg, Intramuscular, ONCE PRN Other, Hypersensitivity Reaction or Anaphylaxis, Starting [place] 02/13/20 at 1157, Until 02/14/20 at 1156, For 24 hours hEParin Lock FLUSH 100 UNIT/ML inj 500 Units 500 Units (5 mL), IV Lock, PRN Other, IV Flush, Starting [place] 6/4/20 at 1157, Until Mon02/14/20 at 1156, For 24 hours, Do not flush if lock, PICC, or central line not in place; IV infusing or unable to flush., hydrocortisone na succinate pf (SOLU-CORTEF) inj 100 mg 100 mg, IV Push, ONCE PRN Other, Hypersensitivity Reaction, Starting [place] 02/13/20 at 1157, Until Mon02/14/20 at 1156, For 24 hours NSS infusion 500 mL, Intravenous, at 50 mL/hr, CONTINUOUS, Starting [place] 02/13/20 at 1300, Until [place] 02/13/20 at 2259 Start Infusion 02/13/2020 12:01 PM EDT 500 mL 50 mL/hr sodium chloride 0.9% flush/inj 10 mL 10 mL, IV Push, PRN Other, IV Flush, Starting [place] 02/13/20 at 1157, Until Mon02/14/20 at 1156, For 24 hours, Do not flush if lock, PICC, or central line not in place; IV infusing or unable to flush., Inactive Administered Medications - up to 3 most recent administrations Medication Order MAR Action Action Date Dose Rate Site iron sucrose (VENOFER) 300 mg in NSS 250 mL ivpb 300 mg, IV Piggyback, ONCE, 1 dose, [place] 02/13/20 at 1330, Administer over 90 Minutes Start Infusion 02/13/2020 12:08 PM EDT 300 mg 166.67 mL/hr documented in this encounter Advance Directives Documents on File Type Date Recorded Patient Test Developer 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
--- OUTSIDE RECORDS SUMMARY | 2023-05-10 22:41 | External Medical Summary | Summary of Care ---
Author Name Unknown Organization [place] [address] Care Team Providers Care Equipment Washer Name Role Phone Rajwinder Carter Primary Care Provider [phone] Encounter Details Date Type Department Care Team Description 02/04/2020 Scan Encounter Unspecified Department <No scans attached> Allergies Active Allergy Reactions Severity Noted Date Comments Penicillins Rash 02/12/2008 documented as of this encounter (statuses as of 02/06/2020) Medications Medication Sig Dispensed Refills Start Date [...] Dosing Unit 5 10/07/2019 Active nystatin (NYSTOP) 842170 UNIT/GM powder Apply topically to affected area [...] as of this encounter (statuses as of 02/06/2020) Active Problems Problem Noted Date Iron deficiency [...] as of this encounter (statuses as of 02/06/2020) Resolved Problems Problem Noted Date Resolved Date Chronic hypoxemic respiratory failure 04/08/2019 04/18/2019 Oxygen dependent 04/08/2019 04/18/2019 jail resident 04/08/2019 05/02/2019 Preop examination 02/21/2019 04/04/2019 [...] pain 01/24/2012 01/17/2017 Genetic Sleep Disorder Research Other*[id number] 05/13/2011 04/07/2016 Obstructive sleep apnea 01/18/2011 12/27/19 [...] as of this encounter (statuses as of 02/06/2020) Immunizations Name Administration Dates Next Due HEP [...] have Coronavirus / COVID-19? Unable to assess 02/05/2020 1:43 PM EDT documented as of this encounter Plan of Treatment Upcoming Encounters Date Type Specialty Care Team Description 02/10/2020 Office Visit Family Medicine Rajwinder Carter, DO [address] [facility] [place] [id number] 02/10/2020 Hem/Onc Treatment Hematology Oncology Maryellen, Chair [address] [place] [address] [phone] 02/28/2020 Telemedicine Gastroenterology [facility] St[facility] [address] [phone] 03/11/2020 Office Visit [facility] Rajwinder Lopez, DO [address] [facility] [id number] 04/29/2020 Nutrition Services Gastroenterology Melissa Omalley, SAMANTHA [address] [place] [address] [phone] 05/06/2020 Office Visit Gynecology Obstetrics Aman Small, MANAV [address] [place] [id number] 06/30/2020 Office Visit Hematology Oncology Tono Sanchez MD 200 [facility] [address] [phone] 09/03/2020 Imaging Radiology Health Maintenance Due Date [...] Documents on File Type Date Recorded 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
--- OUTSIDE RECORDS SUMMARY | 2023-05-10 22:41 | External Medical Summary | Summary of Care ---
Author Name Unknown Organization [place] [address] Care Team Providers Care Dietetics Professor Name Role Phone Rajwinder Carter Primary Care Provider Encounter Details Date Type Department Care Team Description 02/10/2020 Documentation Hematology/Oncology Treatment, [place] [address] [place] [address] Maryellen, Chair 10 Hem Onc Scenery [address] [place] [address] [phone] Iron deficiency anemia due to chronic blood [...] Dosing Unit 5 10/07/2019 Active nystatin (NYSTOP) 061300 UNIT/GM powder Apply topically to affected area 3 times a day. 60 g 1 10/16/2019 Active BD PEN NEEDLE MINI U/F 31G X 5 MMIndications:Type 2 diabetes mellitus with hemoglobin A1c goal of less than 7.0% ([facility]) use with basaglar at bedtime 100 [...] pain 01/24/2012 01/17/2017 Genetic Sleep Disorder Research Other*[id number] 05/13/2011 04/07/2016 Obstructive sleep apnea 01/18/2011 12/27/19 [...] PM EDT documented as of this encounter Nursing Notes * Data, Entry - 02/11/2020 5:33 AM EDT Automated conversion to a Documentation Encounter documented in this encounter Plan of Treatment Upcoming Encounters Date Type Specialty Care Team Description 02/11/2020 Hem/Onc Treatment Hematology Oncology [place], Chair 10 Hem Onc Scenery [address] [place] [address] [phone] 02/11/2020 Office Visit Family Rajwinder Lopez DO [address], [place] [phone] 02/28/2020 Telemedicine Gastroenterology Lyssa Stout CRNP [address] [place] [address] [phone] 03/11/2020 Office Visit Family Rajwinder Lopez DO [address], [place] 9908123 04/29/2020 Nutrition Services Gastroenterology Melissa Omalley RDN [address] [place] [id number] 05/06/2020 Office Visit [facility]necology Obstetrics Aman Small, BOOM [facility] [place] [id number] 06/30/2020 Office Visit Hematology Oncology Tono Sanchez MD 200 [facility], [place] [address] [phone] 09/03/2020 Imaging Radiology Health Maintenance Due Date [...] Documents on File Type Date Recorded 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
--- OUTSIDE RECORDS SUMMARY | 2023-05-10 22:41 | External Medical Summary | Summary of Care ---
Author Name Unknown Organization [place] [address] Care Team Providers Care Catering Server Name Role Phone JohnbrianRajwinder thacker Primary Care Provider [phone] Reason for Visit * Reason Comments Treatment Venofer Encounter Details Date Type Department Care Team Description 02/10/2020 Documentation Hematology/Oncology Treatment, [place] [address] [place] [address] Maryellen, Chair 10 Hem Onc Scenery [address] [place] [address] [phone] Iron deficiency anemia due to chronic blood [...] Dosing Unit 5 10/07/2019 Active nystatin (NYSTOP) 773361 UNIT/GM powder Apply topically to affected area 3 times a day. 60 g 1 10/16/2019 Active BD PEN NEEDLE MINI U/F 31G X 5 MMIndications:Type 2 diabetes mellitus with hemoglobin A1c goal of less than 7.0% ([facility]) use with basaglar at bedtime 100 Each [...] pain 01/24/2012 01/17/2017 Genetic Sleep Disorder Research Other*[id number] 05/13/2011 04/07/2016 Obstructive sleep apnea 01/18/2011 12/27/19 [...] Chair 10 Hem Onc [address] [place] [address] [phone] 02/11/2020 Office Visit Family Medicine [facility]inder Carter DO [address] [facility] [id number] 02/28/2020 Telemedicine Gastroenterology Lyssa Stout, AUTOMOTIVE GLASS MECHANIC 132 [facility] [place] [address] [phone] 03/11/2020 Office Visit Family Medicine Rajwinder Carter DO [address] [place] [facility] [place] [address] [phone] 04/29/2020 Nutrition Services Gastroenterology Melissa Omalley, SAMANTHA [address] [place] [id number] 05/06/2020 Office Visit Gynecology Obstetrics Aman Small, MANAV [address] [place] [id number] 06/30/2020 Office Visit Hematology Oncology Tono Sanchez MD 200 [facility], [place] [address] 09/03/2020 Imaging Radiology Health Maintenance Due Date [...] Documents on File Type Date Recorded 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
--- OUTSIDE RECORDS SUMMARY | 2023-05-10 22:41 | External Medical Summary | Summary of Care ---
Author Name Unknown Organization [place] [address] Care Team Providers Care Sofa Cover Inspector Name Role Phone Rajwinder Carter DO Primary Care Provider [phone] Reason for Visit * Reason Comments Emergency Department Follow-Up Encounter Details Date Type Department Care Team Description 01/10/2020 Office Visit Family [facility] [address] [place], [place] [id number] Rajwinder Carter DO [address] [place], [place] [phone] Vagina, candidiasis* Allergies Active Allergy Reactions Severity Noted Date Comments Penicillins Rash 02/12/2008 documented as of this encounter (statuses as of 02/10/2020) Medications Medication Sig Dispensed Refills Start Date [...] DAILY DIRECTED 16 g 5 9 Active oxybutynin (DITROPAN) 5 MG Tablet Take 1 Tab by mouth 2 times a day. 60 Tab 4 0 Active pantoprazole (PROTONIX) 20 MG TBECIndications:Ga stroesophageal reflux disease, esophagitis presence not specified,NAFLD (nonalcoholic fatty liver disease),Other cirrhosis of liver (HCC) Take 2 Tabs by mouth daily. 60 Tab 5 0 Active albuterol sulfate (PROVENTIL) (2.5 MG/3ML) 0.083% nebulizer solutionIndication s:Pulmonary vascular congestion Inhale 1 Vial via nebulizer every 6 hours as needed for Wheezing. 120 Vial 11 0 Active Semaglutide, 1 MG/DOSE, (OZEMPIC, 1 MG/DOSE,) 2 MG/1.5ML SOPN Inject 1 mg under the skin once a week. DX:E11.9 2 Pre-filled Pen Syringe Dosing Unit 5 0 Active nystatin (NYSTOP) 958972 UNIT/GM powder Apply topically to affected area [...] in pm, 180 Cap 5 0 Active tamsulosin (FLOMAX) 0.4 MG Capsule Take 1 Cap by mouth daily. 30 Cap 3 0 Active nadolol (CORGARD) 20 [...] 0 Active potassium chloride ER 10 MEQ TBCRIndications:Hy pokalemia TAKE 1 TABLET EVERY DAY WITH FOOD 90 Tab 1 0 Active insulin glargine (LANTUS SOLOSTAR) 100 UNIT/ML SOPNIndications:Ty pe 2 diabetes mellitus with hemoglobin A1c goal of less than 7.0% (HCC) inject 24 units under the skin at bedtime 30 mL 0 0 Active SM ASPIRIN ADULT LOW STRENGTH 81 MG TBEC TAKE 1 TABLET BY MOUTH ONCE DAILY 90 Tab 3 0 Active traZODone (DESYREL) 50 MG TabletIndications: Sleep disturbances Take 1 Tab by mouth at bedtime. 90 Tab 1 0 Active escitalopram (LEXAPRO) 20 MG TabletIndications: Recurrent major depressive disorder, in partial remission (HCC) Take 1 Tab by mouth daily. 90 Tab 1 0 Active Dulaglutide (TRULICITY) 1.5 MG/0.5ML SOPNIndications:Ty pe 2 diabetes mellitus with hemoglobin A1c goal of less than 7.0% (HCC) Inject 1 syringeful once weekly 6 mL 1 0 Active atorvaSTATin (LIPITOR) 40 MG TabletIndications: Dyslipidemia, goal LDL below 70 TAKE 1 TABLET BY MOUTH EVERY NIGHT AT BEDTIME 90 Tab 1 0 Active MetFORMIN (GLUCOPHAGE) 1000 MG TabletIndications: Type 2 diabetes mellitus with hemoglobin A1c goal of less than 7.0% (HCC) TAKE 1 TABLET BY MOUTH TWICE DAILY 180 Tab 1 0 Active furosemide (LASIX) 20 MG TabletIndications: Localized edema,Venous stasis dermatitis of both lower extremities TAKE 1 TABLET BY MOUTH once daily NEEDED FoR EDEMA 30 Tab 4 0 01/28/20 20 Discontinued levothyroxine (LEVOXYL) 150 MCG TabletIndications: Acquired hypothyroidism TAKE 1 TABLET BY MOUTH ONCE DAILY at least 30 minutes prior to breakfast or other meds 90 Tab 1 0 01/29/20 20 Discontinued(Me dication/Dose Changed) cyclobenzaprine (FLEXERIL) 10 MG Tablet TAKE 1 TABLET BY MOUTH AT BEDTIME 30 Tab 0 0 01/30/20 20 Discontinued fluconazole (DIFLUCAN) 150 MG TabletIndications: Vagina, candidiasis Take 1 Tab by mouth once for 1 dose. 1 Tab 1 0 01/10/20 20 documented as of this encounter (statuses as of 02/10/2020) Active Problems Problem Noted Date Iron deficiency [...] as of this encounter (statuses as of 02/10/2020) Resolved Problems Problem Noted Date Resolved Date [...] pain 01/24/2012 01/17/2017 Genetic Sleep Disorder Research Other*[id number] 05/13/2011 04/07/2016 Obstructive sleep apnea 01/18/2011 12/27/19 [...] as of this encounter (statuses as of 02/10/2020) Immunizations Name Administration Dates Next Due HEP [...] Sign Reading Time Taken Comments Blood Pressure 108/70 01/10/2020 2:19 PM EDT Pulse 72 01/10/2020 2:19 PM EDT Temperature 36.4 C (97.6 F) 01/10/2020 2:19 PM ED T Respiratory Rate 20 01/10/2020 2:19 PM EDT Oxygen Saturation - - Inhaled Oxygen Concentration - - Weight - - Height - - Body Mass Index - - documented in this encounter Progress Notes * Rajwinder Carter DO - 01/10/2020 2:14 PM EDT SUBJECTIVE: Chief Complaint Patient presents with Emergency Department Follow-Up HPI: Shaina Bustos is a 64 year old female who presents today for ED follow-up. Pt was seen on 12/28.We did a telephone visit on 12/31. She does not think that she has had issues since then. She said her caregiver noted an "orange" urine one time. Pt feels that she drinks enough. She notes no furtherblood. Unfortunately, pt is unaccompanied today and is a difficult historian. She does not some vaginal itching and burning. This started after the antibiotic. PHM: Patient Active Problem List Diagnosis Code Edema R60.9 Venous insufficiency I87.2 Spinal stenosis of lumbar region without neurogenic claudication M48.061 Cerebral palsy ([facility]) G80.9 HTN, goal below 140/90 I10 Chronic [...] 7.0% ([facility]) E11.9 Vitamin D deficiency E55.9 Restrictive lung disease J98.4 Obesity, morbid (more than 100 lbs over ideal weight or BMI > 40) ([facility]) E66.01 Dyslipidemia, goal LDL below 70 E78.5 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 R39.81 Acquired hypothyroidism E03.9 Chronic pain syndrome G89.4 MEDICATION USE AGREEMENT DV0269 History of Clostridium difficile colitis Z86.19 Cirrhosis of liver ([facility]) K74.60 THAD on CPAP G47.33, Z99.89 Wheelchair dependent Z99.3 History of recent fall Z91.81 Pancytopenia ([facility]) D61.818 Ambulatory dysfunction R26.2 Fall W19.XXXA Sprain of right ankle S93.401A DM type 2 with diabetic peripheral neuropathy ([facility]) E11.42 Insomnia G47.00 Recurrent major depressive disorder, in partial remission ([facility]) F33.41 Impaired mobility and ADLs Z74.09 Generalized weakness R53.1 Gastroesophageal reflux disease K21.9 History of kidney stones Z87.442 History of Achilles tendon repair Z98.890 History of delivery Z98.891 History of MRSA infection Z86.14 History of migraine Z86.69 Anemia D64.9 Fibromyalgia M79.7 Achilles tendinitis, right leg M76.61 DNR (do not resuscitate) Z66 Thrombocytopenia ([facility]) D69.6 Iron deficiency anemia due to chronic blood loss D50.0 Splenomegaly R16.1 Current Outpatient Medications Medication Sig Dispense Refill MetFORMIN (GLUCOPHAGE) 1000 MG Tablet TAKE 1 TABLET BY MOUTH TWICE DAILY 180 Tab 1 atorvaSTATin (LIPITOR) 40 MG Tablet TAKE 1 TABLET BY MOUTH EVERY NIGHT AT BEDTIME 90 Tab 1 cyclobenzaprine (FLEXERIL) 10 MG Tablet TAKE 1 TABLET BY MOUTH AT BEDTIME 30 Tab 0 Dulaglutide (TRULICITY) 1.5 MG/0.5ML SOPN Inject 1 syringeful once weekly 6 mL 1 escitalopram (LEXAPRO) 20 MG Tablet Take 1 Tab by mouth daily. 90 Tab 1 insulin glargine (LANTUS SOLOSTAR) 100 UNIT/ML SOPN inject 24 units under the skin at bedtime 30 mL 0 levothyroxine (LEVOXYL) 150 MCG Tablet TAKE 1 TABLET BY MOUTH ONCE DAILY at least 30 minutes prior to breakfast or other meds 90 Tab 1 potassium chloride ER 10 MEQ TBCR TAKE 1 TABLET EVERY DAY WITH FOOD 90 Tab 1 SM ASPIRIN ADULT LOW STRENGTH 81 MG TBEC TAKE 1 TABLET BY MOUTH ONCE DAILY 90 Tab 3 traZODone (DESYREL) 50 MG Tablet Take 1 Tab by mouth at bedtime. 90 Tab 1 ferrous sulfate (FEOSOL) 325 (65 FE) MG [...] or Wheezing. With spacer 16 g 1 Semaglutide, 1 MG/DOSE, (OZEMPIC, 1 [...] TABS 1 tab daily 1 Tab 0 Blood Glucose Monitoring Suppl (BLOOD GLUCOSE MONITOR SYSTEM) w/Device KIT Use to test once per day. 1 Kit 0 Glucose Blood (BLOOD GLUCOSE TEST) STRP Use to test once per day. 100 Strip 3 Lancets MISC Use to test once per day. 100 Each 3 BD PEN NEEDLE MINI U/F 31G X 5 MM use with basaglar at bedtime 100 Each 10 nystatin (NYSTOP) 474887 UNIT/GM powder Apply topically to affected area 3 times a day. 60 g 1 furosemide (LASIX) 20 MG Tablet TAKE 1 TABLET BY MOUTH once daily NEEDED FoR EDEMA 30 Tab 4 furosemide (LASIX) 20 MG Tablet Take 20 mg by mouth daily. Every other day Past Medical History: Diagnosis Date Chronic hypoxemic [...] (RECTUM) 10/04/2016 normal bx, repeat 10 yrs[facility] wisdom teeth x 4 DILATION AND CURETTAGE (D&C) EGD, FLEXIBLE, DIAGNOSTIC 10/04/2016 gastritis/[facility] EGD, FLEXIBLE, DIAGNOSTIC 01/11/2018 eso varices, retained food, repeat 1 yr/[facility] PELVIS/HIP JOINT SURGERY NEC teenager aid in [...] abdominal pain, constipation, diarrhea, nausea and vomiting. Genitourinary: Positive for vaginal discharge. Musculoskeletal: Negative for arthralgias, gait problem and joint swelling. Skin: Negative for color change, pallor and rash. OBJECTIVE: BP 108/70 | Pulse 72 | Temp (Src) 97.6 (Tympanic) | Resp 20 | Wt (0.000kg) PHYSICAL EXAM: Physical Exam Constitutional: General: She is not in acute distress. Appearance: She is well-developed. She is ill-appearing (chronically). Cardiovascular: Rate and Rhythm: Normal rate and [...] oriented to person, place, and time. ASSESSMENT/PLAN: (B37.3) Vagina, candidiasis (primary encounter diagnosis) Plan: fluconazole (DIFLUCAN) 150 MG Tablet Will have pt start diflucan. She requires a candace lift to examine as she is wheelchair bound so we are unable to do so in the clinic today. Advised to have caregivers monitor urine and underwear for any bleeding. She is at baseline otherwise. Follow-up: 1 month Rajwinder Carter DO documented in this encounter Nursing Notes * Michaelle Lindquist LPN - 01/10/2020 2:15 PM EDT Pt here for ER f/u bladder infection. documented in this encounter Plan of Treatment Upcoming Encounters Date Type Specialty Care Team Description 02/11/2020 Hem/Onc Treatment Hematology Oncology Maryellen, Chair 10 Hem Onc [facility] 200 [place] [address] [phone] 02/11/2020 Office Visit Family Medicine Rajwinder Carter DO [address] [place] [facility] [place] [address] [phone] 02/28/2020 Telemedicine Gastroenterology Lyssa Stout CRNP [address] [facility] [place] [address] [phone] 03/11/2020 Office Visit Family Rajwinder Lopez DO [address] [place] [facility] [place] [address] [phone] 04/29/2020 Nutrition Services Gastroenterology Melissa Omalley, SAMANTHA [address] [place] [address] [place] [address] [phone] 05/06/2020 Office Visit Gynecology Obstetrics Aman Small, MANAV [address] [facility] [place] [id number] 06/30/2020 Office Visit Hematology Oncology Tono Sanchez MD 200 [place] [address] [phone] 09/03/2020 Imaging Radiology Health Maintenance Due Date [...] as of this encounter Visit Diagnoses Diagnosis Vagina, candidiasis- Primary Candidiasis of vulva and vagina documented in this encounter Advance Directives Documents on File Type Date Recorded Patient Vice President Industrial Relations 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
--- OUTSIDE RECORDS SUMMARY | 2023-05-10 22:41 | External Medical Summary | Summary of Care ---
Author Name Unknown Organization [facility] [place] [address] Care Team Providers Care Dentofacial Orthopedics Dentist Name Role Phone Rajwinder Carter DO Primary Care Provider [phone] Reason for Visit * Reason Comments FYI Encounter Details Date Type Department Care Team Description 02/13/2020 Telephone [facility] [address] [place] [address] Rajwinder Carter DO [address] [place], [place] [id number] FYI Allergies Active Allergy Reactions Severity Noted [...] Dosing Unit 5 10/07/2019 Active nystatin (NYSTOP) 907338 UNIT/GM powder Apply topically to affected area 3 times a day. 60 g 1 10/16/2019 Active BD PEN NEEDLE MINI U/F 31G X 5 MMIndications:Type 2 diabetes mellitus with hemoglobin A1c goal of less than 7.0% ([facility]) use with basaglar at bedtime 100 [...] pain 01/24/2012 01/17/2017 Genetic Sleep Disorder Research Other*[id number] 05/13/2011 04/07/2016 Obstructive sleep apnea 01/18/2011 12/27/19 [...] - 02/13/2020 2:46 PM EDT Karine [facility] calling states they received a referral [...] [facility]winder Carter DO [address] [facility] [place] [address] 02/28/2020 Telemedicine Gastroenterology Lyssa Stout CRNP 132 [facility] [place] [address] [phone] 03/11/2020 Office Visit Family [facility]winder Lopez DO [address] [facility] [place] [address] 04/29/2020 Nutrition Services Gastroenterology Melissa Omalley RDN [address] [place] [address] [phone] 05/06/2020 Office Visit Gynecology Obstetrics Aman Small, MANAV [address] [place] [address] [phone] 06/30/2020 Office Visit Hematology Oncology Tono Sanchez MD 200 [facility], [place] [address] 09/03/2020 Imaging Radiology Health Maintenance Due Date [...] Documents on File Type Date Recorded 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
--- OUTSIDE RECORDS SUMMARY | 2023-05-10 22:41 | External Medical Summary | Summary of Care ---
Author Name Unknown Organization [place] [address] Care Team Providers Care Bonding Agent Name Role Phone Rajwinder Carter Primary Care Provider [phone] Encounter Details Date Type Department Care Team Description 02/05/2020 Scan Encounter Unspecified Department <No scans attached> [...] Dosing Unit 5 10/07/2019 Active nystatin (NYSTOP) 721822 UNIT/GM powder Apply topically to affected area [...] pain 01/24/2012 01/17/2017 Genetic Sleep Disorder Research Other*[id number] 05/13/2011 04/07/2016 Obstructive sleep apnea 01/18/2011 12/27/19 [...] Family Medicine Rajwinder Carter, DO [address] [facility] [place] [id number] 02/10/2020 Hem/Onc Treatment Hematology Oncology Maryellen, Chair 10 Hem Onc [address] [place] [address] [phone] 02/28/2020 Telemedicine Gastroenterology Lyssa Stout CRNP [address] [facility] [address] [phone] 03/11/2020 Office Visit [facility] Rajwinder Lopez, DO [address] [facility] [id number] 04/29/2020 Nutrition Services Gastroenterology Melissa Omalley, SAMANTHA [address] [place] [address] [phone] 05/06/2020 Office Visit Gynecology Obstetrics Aman Small, MANAV [address] [place] [id number] 06/30/2020 Office Visit Hematology Oncology Tono Sanchez MD 200 [place] [address] [phone] 09/03/2020 Imaging Radiology Health Maintenance Due Date [...] Documents on File Type Date Recorded Patient Deaf Interpreter Expl 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
--- OUTSIDE RECORDS SUMMARY | 2023-05-10 22:41 | External Medical Summary | Summary of Care ---
Author Name Unknown Organization [place] [address] Care Team Providers Care Strategic Account Manager Name Role Phone JohnbrianRajwinder thacker Primary Care Provider [phone] Reason for Visit * Reason Comments Treatment Venofer Encounter Details Date Type Department Care Team Description 02/10/2020 Documentation Hematology/Oncology Treatment, [place] [address] [place] [address] Maryellen, Chair 10 Hem Onc [place] [address] [place] [address] [phone] Iron deficiency anemia due to chronic blood [...] Dosing Unit 5 10/07/2019 Active nystatin (NYSTOP) 172287 UNIT/GM powder Apply topically to affected area [...] pain 01/24/2012 01/17/2017 Genetic Sleep Disorder Research Other*[id number] 05/13/2011 04/07/2016 Obstructive sleep apnea 01/18/2011 12/27/19 [...] Date Type Specialty Care Team Description 02/11/2020 Office Visit Family Medicine Rajwinder Carter DO [address] [facility], [place] [id number] 02/13/2020 Hem/Onc Treatment Hematology Oncology [place], Chair 10 Hem Onc [facility] [address] [facility] [place] [address] [phone] 02/28/2020 Telemedicine Gastroenterology Lyssa Stout CRNP [address] [facility] [place] [address] [phone] 03/11/2020 Office Visit Family Medicine Rajwinder Carter, DO [address] [facility], [place] [id number] 04/29/2020 Nutrition Services Gastroenterology Melissa Omalley, [place] [address] [place] [id number] 05/06/2020 Office Visit Gynecology Obstetrics Aman Small, BOOM [address] [place] [id number] 06/30/2020 Office Visit Hematology Oncology Tono Sanchez MD 200 [place] [address] [phone] 09/03/2020 Imaging Radiology Health Maintenance Due Date [...] Documents on File Type Date Recorded Patient Inspector Bicycle 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
[2023-05-10] MEDS: ERTAPENEM SODIUM 1,000 MG in SYRINGE 0 ML IV SCH (22:42)
--- OUTSIDE RECORDS SUMMARY | 2023-05-10 22:42 | External Medical Summary | Summary of Care ---
Author Name Unknown Organization [facility] [place] [address] Care Team Providers Care Cutter Inspector Name Role Phone Rajwinder Carter DO Primary Care Provider [phone] Reason for Visit * Reason Comments Advice Encounter Details Date Type Department Care Team Description 01/30/2020 Telephone [facility] [address] [place] [address] Rajwinder Carter DO [address] [place] [address] Advice Allergies Active Allergy Reactions Severity Noted Date Comments Penicillins Rash 02/12/2008 documented as of this encounter (statuses as of 02/04/2020) Medications Medication Sig Dispensed Refills Start Date [...] Dosing Unit 5 10/07/2019 Active nystatin (NYSTOP) 231565 UNIT/GM powder Apply topically to affected area 3 times a day. 60 g 1 10/16/2019 Active BD PEN NEEDLE MINI U/F 31G X 5 MMIndications:Type 2 diabetes mellitus with hemoglobin A1c goal of less than 7.0% ([facility]) use with basaglar at bedtime 100 Each [...] FOR EDEMA 30 Tab 5 01/28/2020 Active cefdinir (OMNICEF) 300 MG Capsule 0 01/20/2020 Active levothyroxine (LEVOXYL) 200 MCG Tablet Take 1 Tab by mouth daily. 0 01/19/2020 Active sucralfate (CARAFATE) 1 GM Tablet 0 01/20/2020 Active documented as of this encounter (statuses as of 02/04/2020) Active Problems Problem Noted Date Iron deficiency [...] as of this encounter (statuses as of 02/04/2020) Resolved Problems Problem Noted Date Resolved Date [...] pain 01/24/2012 01/17/2017 Genetic Sleep Disorder Research Other*[id number] 05/13/2011 04/07/2016 Obstructive sleep apnea 01/18/2011 12/27/19 [...] as of this encounter (statuses as of 02/04/2020) Immunizations Name Administration Dates Next Due HEP [...] have Coronavirus / COVID-19? Unable to assess 01/29/2020 12:48 PM EDT documented as of this encounter Miscellaneous Notes * Telephone Encounter - Michaelle Lindquist LPN - 01/31/2020 5:29 PM EDT Attempted to call pt no voicemail set up on either phone numbers. * Telephone Encounter - Rajwinder Carter DO - 01/31/2020 1:50 PM EDT 1. Is she having any itching? Discharge? 2. FInish out cefdinir and if still an issue then will need to consider recheck for another urine. 3. I am not sure what the previous message is in reference to regarding a form and information needed for a referral? Please clarify. * Telephone Encounter - Silvia Patten OSA - 01/30/2020 4:18 PM EDT Pham with [facility] called. Stated she faxed over alist of info she need attached along with the referral to get pt an appt. Pham keeps getting the referral but no other information with it. Pham needsall info before pt can be seen faxed to her at [phone]. Please advise, thank you. * Telephone Encounter - Ludy Jara LPN - 01/30/2020 12:28 PM EDT Talked with pt, she thinks she is taking 3 meds for her UTI Talked with , he has a probiotic that she is taking Cefdinir 300mg , sucralfate 1 gm Has not missed any doses that her , she has one dose left. Asking if you want a urine or add more antibiotics. * Telephone Encounter - Giovana Lorenzo OSA - 01/30/2020 10:16 AM EDT Patient calling stating that she saw Dr. Carter on 01/27/2020 for a hospital discharge. Patient states that she is still having the burning from the UTI. Patient states that she is still taking the medication prescribed to her at [facility] for the UTI. Patient states that she doesn't know what to do since she is still taking the medicine but still has the burning. Please advise and return call to patient at [phone]. documented in this encounter Plan of Treatment Upcoming Encounters Date Type Specialty Care Team Description 02/10/2020 Hem/Onc Treatment Hematology Oncology Maryellen, Chair 10 Hem Onc [facility] [address] [place] [address] [phone] 02/28/2020 Telemedicine Gastroenterology Lyssa Stout CRNP [address] [facility] [place] [address] [phone] 03/11/2020 Office Visit Family Medicine Rajwinder Carter DO [address] [place] [address] [phone] 04/29/2020 Nutrition Services Gastroenterology Melissa Omalley RDN [address] [place] [id number] 05/06/2020 Office Visit Gynecology Obstetrics Aman Small CNM [address] [place] [id number] 06/30/2020 Office Visit Hematology Oncology Tono Sanchez MD [address] [place] [address] [phone] 09/03/2020 Imaging Radiology Health Maintenance Due Date [...] Documents on File Type Date Recorded 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
--- OUTSIDE RECORDS SUMMARY | 2023-05-10 22:42 | External Medical Summary | Summary of Care ---
Author Name Unknown Organization [facility] Address [facility] [place] [address] Care Team Providers Care Director Of Program Management Name Role Phone Rajwinder Carter Primary Care Provider [phone] Reason for Visit * Reason Comments Acute Ongoing coughing/SOB , was diagnosed with pnuemonia at the end of December and has not felt any better. Encounter Details Date Type Department Care Team Description 02/04/2020 Office Visit [facility] [address] [place] [address] Mary Dos Santos PA-C [address] [place] [address] [phone] Dyspnea, unspecified type*; Cough; Peripheral edema Allergies Active Allergy Reactions Severity Noted Date [...] Dosing Unit 5 10/07/2019 Active nystatin (NYSTOP) 623381 UNIT/GM powder Apply topically to affected area [...] pain 01/24/2012 01/17/2017 Genetic Sleep Disorder Research Other*[id number] 05/13/2011 04/07/2016 Obstructive sleep apnea 01/18/2011 12/27/19 [...] Smokeless Tobacco: Never Used Tobacco Cessation:Counseling Given: No Alcohol Use Drinks/Week oz/Week Comments No Food [...] have Coronavirus / COVID-19? No / Unsure 02/04/2020 1:04 PM EDT documented as of this encounter Last Filed Vital Signs Vital Sign Reading Time Taken Comments Blood Pressure 120/74 02/04/2020 4:24 PM EDT Pulse 67 02/04/2020 4:24 PM EDT Temperature 37.7 C (99.8 F) 02/04/2020 4:24 PM ED T Respiratory Rate 20 02/04/2020 4:24 PM EDT Oxygen Saturation 92% 02/04/2020 4:24 PM EDT Inhaled Oxygen Concentration - - Weight - - Height - - Body Mass Index - - documented in this encounter Progress Notes * Mary Dos Santos PA-C - 02/04/2020 4:39 PM EDT Subjective Shaina Bustos is a 64 year old female. Chief Complaint Patient presents with Acute Ongoing coughing/SOB, was diagnosed with pnuemonia at the end of December and has not felt any better. HPI: C/o ongoing cough. +dyspnea, fatigue. Had pneumonia at the end of December and doesn't feel like she has improved. Has been to the hospital multiple times. Doesn't take her lasix everyday. No fevers. No abdominal pain, nvd. Reports her edema is much worse. PMH: Patient Active Problem List Diagnosis Code Edema [...] 7.0% ([facility]) E11.9 Vitamin D deficiency E55.9 Restrictive lung disease J98.4 Obesity, morbid (more than 100 lbs over ideal weight or BMI > 40) ([facility]) E66.01 Dyslipidemia, goal LDL below 70 E78.5 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 R39.81 Acquired hypothyroidism E03.9 Chronic pain syndrome G89.4 MEDICATION USE AGREEMENT [id number] History of Clostridium difficile colitis Z86.19 Cirrhosis of liver ([facility]) K74.60 THAD on CPAP G47.33, Z99.89 Wheelchair dependent Z99.3 History of recent fall Z91.81 Pancytopenia ([facility]) D61.818 Ambulatory dysfunction R26.2 Fall W19.XXXA Sprain of right ankle S93.401A DM type 2 with diabetic peripheral neuropathy ([facility]) E11.42 Insomnia G47.00 Recurrent major depressive disorder, in partial remission ([facility]) F33.41 Impaired mobility and ADLs Z74.09 Generalized weakness R53.1 Gastroesophageal reflux disease K21.9 History of kidney stones Z87.442 History of Achilles tendon repair Z98.890 History of delivery Z98.891 History of MRSA infection Z86.14 History of migraine Z86.69 Anemia D64.9 Fibromyalgia M79.7 Achilles tendinitis, right leg M76.61 DNR (do not resuscitate) Z66 Thrombocytopenia ([facility]) D69.6 Iron deficiency anemia due to chronic blood loss D50.0 Splenomegaly R16.1 Current Outpatient Medications Medication Sig Dispense Refill cyclobenzaprine (FLEXERIL) 10 MG Tablet TAKE 1 TABLET BY MOUTH EVERY NIGHT AT BEDTIME 30 Tab 0 levothyroxine (LEVOXYL) 200 MCG Tablet Take 1 Tab by mouth daily. sucralfate (CARAFATE) 1 GM Tablet furosemide (LASIX) 20 MG Tablet TAKE 1 TABLET BY MOUTH ONCE DAILY NEEDED FOR EDEMA 30 Tab 5 cefdinir (OMNICEF) 300 MG Capsule MetFORMIN (GLUCOPHAGE) 1000 MG Tablet TAKE 1 [...] at bedtime 100 Each 10 nystatin (NYSTOP) 676572 UNIT/GM powder Apply topically to affected area [...] normal bx, repeat 10 yrs/[facility] DENTAL SURGERY PROCEDURE NEC wisdom teeth x 4 DILATION AND CURETTAGE (D&C) EGD, FLEXIBLE, DIAGNOSTIC 10/04/2016 gastritis/[facility] EGD, FLEXIBLE, DIAGNOSTIC 01/11/2018 eso varices, retained food, repeat 1 yr/[facility] PELVIS/HIP JOINT SURGERY NEC teenager aid [...] Financial resource strain: Not on file Food insecurity: Worry: Never true Inability: Never true Transportation needs: Medical: Not on file Non-medical: Not on file Tobacco Use Smoking status: Never Smoker Smokeless tobacco: Never Used Substance and Sexual Activity Alcohol use: No Drug use: No Comment: too much soda Sexual activity: Not Currently Partners: Male Lifestyle Physical activity: Days per week: Not on file Minutes per session: Not on file Stress: Not on file Relationships Social connections: Talks on phone: Not on file Gets together: Not on file Attends hindu service: Not on file Active member of club or organization: Not on file Attends meetings of clubs or organizations: Not on file Relationship status: Not on file Intimate partner violence: Fear of current or ex partner: Not on file Emotionally abused: Not on file Physically abused: Not on file Forced sexual activity: Not on file Other Topics Concern Not on file Social History Narrative 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 Negative for fever. HENT: Negative for congestion, sinus pressure and sinus pain. Respiratory: Positive for cough and shortness of breath. Cardiovascular: Positive for leg swelling. Neurological: Positive for dizziness and weakness. Objective BP 120/74 | Pulse 67 | Temp (Src) 99.8 (Tympanic) | Resp 20 | Wt (0.000kg) | SaO2 92% Physical Exam Vitals signs and nursing note reviewed. Constitutional: General: She is not in acute distress. Appearance: Normal appearance. She is obese. She is not ill-appearing, toxic- appearing or diaphoretic. HENT: Head: Normocephalic and atraumatic. Right Ear: Tympanic membrane, ear canal and external ear normal. Left Ear: Tympanic membrane, ear canal and external ear normal. Cardiovascular: Rate and Rhythm: Normal rate and regular rhythm. Pulmonary: Effort: No respiratory distress. Breath sounds: Wheezing and rhonchi present. Musculoskeletal: Right lower leg: Edema present. Left lower leg: Edema present. Neurological: Mental Status: She is alert. ASSESSMENT/PLAN: C/o fatigue, dyspnea, cough. 2+pitting edema bilaterally, rhonchi and wheezing to ascultation sao2 92% on room air ?pneumonia, viral infection, CHF, among others Recommend ER evaluation will take her Dyspnea, unspecified type (Primary) Cough Peripheral edema Mary Dos Santos PA-C documented in this encounter Plan of Treatment Upcoming Encounters Date Type Specialty Care Team Description 02/10/2020 Hem/Onc Treatment Hematology Oncology [place], Chair 10 Hem On[address] [place] [address] [phone] 02/28/2020 Telemedicine Gastroenterology Lyssa Stout CRNP [address] [facility] [place] [address] [phone] 03/11/2020 Office Visit Family Medicine Rajwinder Carter DO [address] [place], [place] [id number] 04/29/2020 Nutrition Services Gastroenterology Melissa Omalley RDN [address] [place] [id number] 05/06/2020 Office Visit Gynecology Obstetrics Aman Small CNM [address] [facility] [place] [id number] 06/30/2020 Office Visit Hematology Oncology Tono Sanchez MD [address] [place] [address] [phone] 09/03/2020 Imaging Radiology Health Maintenance Due Date [...] as of this encounter Visit Diagnoses Diagnosis Dyspnea, unspecified type- Primary Cough Peripheral edema Edema documented in this encounter Advance Directives Documents on File Type Date Recorded Patient Research/Program Director Expl 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"
--- OUTSIDE RECORDS SUMMARY | 2023-05-10 22:42 | External Medical Summary | Summary of Care ---
Author Name Unknown Organization [place] [address] Care Team Providers Care Vertical Mill Operator Name Role Phone Rajwinder Carter Primary Care Provider [phone] Encounter Details Date Type Department Care Team [...] Dosing Unit 5 10/07/2019 Active nystatin (NYSTOP) 013744 UNIT/GM powder Apply topically to affected area [...] pain 01/24/2012 01/17/2017 Genetic Sleep Disorder Research Other*[id number] 05/13/2011 04/07/2016 Obstructive sleep apnea 01/18/2011 12/27/19 [...] Family Medicine Rajwinder Carter, DO [address] [facility] [place] [id number] 02/10/2020 Hem/Onc Treatment Hematology Oncology Maryellen, Chair 10 Hem Onc [address] [place] [address] [phone] 02/28/2020 Telemedicine Gastroenterology Lyssa Stout CRNP [address] [facility] [address] [phone] 03/11/2020 Office Visit [facility] Rajwinder Lopez, DO [address] [facility] [id number] 04/29/2020 Nutrition Services Gastroenterology Melissa Omalley, SAMANTHA [address] [place] [address] [phone] 05/06/2020 Office Visit Gynecology Obstetrics Aman Small, MANAV [address] [place] [id number] 06/30/2020 Office Visit Hematology Oncology Tono Sanchez MD 200 [place] [address] [phone] 09/03/2020 Imaging Radiology Health Maintenance Due Date [...] Documents on File Type Date Recorded Patient Econometrician Expl 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
--- OUTSIDE RECORDS SUMMARY | 2023-05-10 22:42 | External Medical Summary | Summary of Care ---
Author Name Unknown Organization [facility] Address [place] [address] Care Team Providers Care Maintenance Painter Apprentice Name Role Phone Rajwinder Carter DO Primary Care Provider [phone] Reason for Visit * Reason Comments Advice Encounter Details Date Type Department Care Team Description 01/30/2020 Telephone [facility] [address] [place] [address] Rajwinder Carter DO [address] [place] [address] Advice Allergies Active Allergy Reactions Severity Noted Date Comments Penicillins Rash 02/12/2008 documented as of this encounter (statuses as of 02/05/2020) Medications Medication Sig Dispensed Refills Start Date [...] Dosing Unit 5 10/07/2019 Active nystatin (NYSTOP) 234375 UNIT/GM powder Apply topically to affected area 3 times a day. 60 g 1 10/16/2019 Active BD PEN NEEDLE MINI U/F 31G X 5 MMIndications:Type 2 diabetes mellitus with hemoglobin A1c goal of less than 7.0% ([facility]) use with basaglar at bedtime 100 [...] as of this encounter (statuses as of 02/05/2020) Active Problems Problem Noted Date Iron deficiency [...] as of this encounter (statuses as of 02/05/2020) Resolved Problems Problem Noted Date Resolved Date [...] pain 01/24/2012 01/17/2017 Genetic Sleep Disorder Research Other*[id number] 05/13/2011 04/07/2016 Obstructive sleep apnea 01/18/2011 12/27/19 [...] as of this encounter (statuses as of 02/05/2020) Immunizations Name Administration Dates Next Due HEP [...] - 01/30/2020 4:18 PM EDT Pham with [facility] called. Stated she faxed over alist of info she need attached along with the referral to get pt an appt. Pham keeps getting the referral but no other information with it. Pham needsall info before pt can be seen faxed to her at [phone]. Please advise, thank you. * Telephone Encounter [...] taking the medication prescribed to her at [facility] for the UTI. Patient states that she doesn't know what to do since she is still taking the medicine but still has the burning. Please advise and return call to patient at [phone]. documented in this encounter Plan of Treatment Upcoming Encounters Date Type Specialty Care Team Description 02/10/2020 Office Visit Family Rajwinder Lopez DO [address] [facility] [place] [id number] 02/10/2020 Hem/Onc Treatment Hematology Oncology [place], Chair 10 Hem Onc [address] [facility] [address] [phone] 02/28/2020 Telemedicine Gastroenterology Lyssa Stout CRNP [address] [facility] [address] [phone] 03/11/2020 Office Visit Family Rajwinder Lopez DO [address] [facility] [id number] 04/29/2020 Nutrition Services Gastroenterology Melissa Omalley, SAMANTHA [address] [place] [id number] 05/06/2020 Office Visit Gynecology Obstetrics Aman Small, [place] [address] [place] [id number] 06/30/2020 Office Visit Hematology Oncology Tono Sanchez MD 200 [place] [address] [phone] 09/03/2020 Imaging Radiology Health Maintenance Due Date [...] on File Type Date Recorded Patient Business Continuity Planning Director Expl 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
--- OUTSIDE RECORDS SUMMARY | 2023-05-10 22:42 | External Medical Summary | Summary of Care ---
Author Name Unknown Organization [facility] Address [place] [address] Care Team Providers Care Resident Care Coordinator Name Role Phone Rajwinder Carter DO Primary Care Provider [phone] Reason for Visit * Reason Comments Advice Encounter Details Date Type Department Care Team Description 01/30/2020 Telephone [facility] [address] [place] [address] Rajwinder Carter DO [address] [place] [address] Advice Allergies Active Allergy Reactions [...] Dosing Unit 5 10/07/2019 Active nystatin (NYSTOP) 778179 UNIT/GM powder Apply topically to affected area 3 times a day. 60 g 1 10/16/2019 Active BD PEN NEEDLE MINI U/F 31G X 5 MMIndications:Type 2 diabetes mellitus with hemoglobin A1c goal of less than 7.0% ([facility]) use with basaglar at [...] pain 01/24/2012 01/17/2017 Genetic Sleep Disorder Research Other*[id number] 05/13/2011 04/07/2016 Obstructive sleep apnea 01/18/2011 12/27/19 [...] Telephone Encounter - Michaelle Lindquist LPN - 02/05/2020 3:04 PM EDT Pt was seen in office on 02/04/2020 and no mention of issue's stated below. * Telephone Encounter - Michaelle Lindquist LPN [...] EDT Pham with [facility] called. Stated she faxed over alist of info she need attached along with the referral to get pt an appt. Pham keeps getting the referral but no other information with it. Pham needsall info before pt can be seen faxed to her at [phone]. Please advise, thank you. * Telephone Encounter [...] to her at [facility] for the UTI. Patient states that she doesn't know what to do since she is still taking the medicine but still has the burning. Please advise and return call to patient at [phone]. documented in this encounter Plan of Treatment Upcoming Encounters Date Type Specialty Care Team Description 02/10/2020 Office Visit Family Rajwinder Lopez DO [address] [place] [address] [phone] 02/10/2020 Hem/Onc Treatment Hematology Oncology [place], Chair [address] Hem Onc [address] [facility] [address] [phone] 02/28/2020 Telemedicine Gastroenterology Lyssa Stout CRNP [address] [facility] [place] [address] [phone] 03/11/2020 Office Visit Family Rajwinder Lopez DO [address] [place] [address] [phone] 04/29/2020 Nutrition Services Gastroenterology Melissa Omalley RDN [address] [place] [address] [place] [address] [phone] 05/06/2020 Office Visit Gynecology Obstetrics Aman Small, MANAV [address] [facility] [place] [address] [phone] 06/30/2020 Office Visit Hematology Oncology Tono Sanchez MD 200 [place] [address] 09/03/2020 Imaging Radiology Health Maintenance Due [...] Documents on File Type Date Recorded Patient Plywood Scarfer Tender Expl 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
[2023-05-10] MEDS: ATORVASTATIN 40 MG TAB PO SCH (22:43)
--- OUTSIDE RECORDS SUMMARY | 2023-05-10 22:43 | External Medical Summary | Summary of Care ---
Author Name Unknown Organization [facility] Address [place] [address] Care Team Providers Care Board Of Education Secretary Name Role Phone Rajwinder Carter DO Primary Care Provider [phone] Reason for Visit * Reason Comments Advice Encounter Details Date Type Department Care Team Description 01/30/2020 Telephone [facility] [address] [place] [address] Rajwinder Carter DO [address] [place] [address] Advice Allergies Active Allergy Reactions Severity Noted Date Comments Penicillins Rash 02/12/2008 documented as of this encounter (statuses as of 01/30/2020) Medications Medication Sig Dispensed Refills Start Date [...] Dosing Unit 5 10/07/2019 Active nystatin (NYSTOP) 282329 UNIT/GM powder Apply topically to affected area [...] as of this encounter (statuses as of 01/30/2020) Active Problems Problem Noted Date Iron deficiency [...] as of this encounter (statuses as of 01/30/2020) Resolved Problems Problem Noted Date Resolved Date [...] pain 01/24/2012 01/17/2017 Genetic Sleep Disorder Research Other*[id number] 05/13/2011 04/07/2016 Obstructive sleep apnea 01/18/2011 12/27/19 [...] as of this encounter (statuses as of 01/30/2020) Immunizations Name Administration Dates Next Due HEP [...] - 01/30/2020 4:18 PM EDT Pham with [facility] called. Stated she faxed over alist of info she need attached along with the referral to get pt an appt. Pham keeps getting the referral but no other information with it. Pham needsall info before pt can be seen faxed to her at [phone]. Please advise, thank you. * Telephone Encounter [...] taking the medication prescribed to her at [facility] for the UTI. Patient states that she doesn't know what to do since she is still taking the medicine but still has the burning. Please advise and return call to patient at [phone]. documented in this encounter Plan of Treatment Upcoming Encounters Date Type Specialty Care Team Description 02/10/2020 Hem/Onc Treatment Hematology Oncology Maryellen, Chair 10 Hem Onc [facility] 200 [facility] [address] [phone] 02/28/2020 Telemedicine Gastroenterology Lyssa Stout CRNP 132 [facility] [place] [address] [phone] 03/11/2020 Office Visit Family Medicine Rajwinder Carter DO [address] [facility], [place] [address] [phone] 04/29/2020 Nutrition Services Gastroenterology Melissa Omalley, [place] [address] [place] [address] [place] [id number] 05/06/2020 Office Visit Gynecology Obstetrics Aman Small, BOOM [address] [place] [id number] 06/30/2020 Office Visit Hematology Oncology Tono Sanchez MD 200 [facility], [place] [address] [phone] 09/03/2020 Imaging Radiology Health Maintenance Due Date [...] Documents on File Type Date Recorded Patient Rv Servicer Expl 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
--- OUTSIDE RECORDS SUMMARY | 2023-05-10 22:43 | External Medical Summary | Summary of Care ---
Author Name Unknown Organization [facility] Address [place] [address] Care Team Providers Care Hospital Carrier Name Role Phone Rajwinder Carter DO Primary Care Provider [phone] Reason for Visit * Reason Comments Advice Encounter Details Date Type Department Care Team Description 01/30/2020 Telephone [facility] [address] [place] [address] Rajwinder Carter DO [address] [place] [address] Advice Allergies Active Allergy Reactions Severity Noted Date Comments Penicillins Rash 02/12/2008 documented as of this encounter (statuses as of 01/31/2020) Medications Medication Sig Dispensed Refills Start Date [...] Dosing Unit 5 10/07/2019 Active nystatin (NYSTOP) 917266 UNIT/GM powder Apply topically to affected area 3 times a day. 60 g 1 10/16/2019 Active BD PEN NEEDLE MINI U/F 31G X 5 MMIndications:Type 2 diabetes mellitus with hemoglobin A1c goal of less than 7.0% ([facility]) use with basaglar at bedtime [...] as of this encounter (statuses as of 01/31/2020) Active Problems Problem Noted Date Iron deficiency [...] as of this encounter (statuses as of 01/31/2020) Resolved Problems Problem Noted Date Resolved Date [...] pain 01/24/2012 01/17/2017 Genetic Sleep Disorder Research Other*[id number] 05/13/2011 04/07/2016 Obstructive sleep apnea 01/18/2011 12/27/19 [...] as of this encounter (statuses as of 01/31/2020) Immunizations Name Administration Dates Next Due HEP [...] - 01/30/2020 4:18 PM EDT Pham with [facility] called. Stated she faxed over alist of info she need attached along with the referral to get pt an appt. Pham keeps getting the referral but no other information with it. Pham needsall info before pt can be seen faxed to her at [phone]. Please advise, thank you. * Telephone Encounter [...] Patient calling stating that she saw Dr. Crater on 01/27/2020 for a hospital discharge. Patient states that she is still having the burning from the UTI. Patient states that she is still taking the medication prescribed to her at [facility] for the UTI. Patient states that she doesn't know what to do since she is still taking the medicine but still has the burning. Please advise and return call to patient at [phone]. documented in this encounter Plan of Treatment Upcoming Encounters Date Type Specialty Care Team Description 02/10/2020 Hem/Onc Treatment Hematology Oncology Maryellen, Chair 10 Hem Onc [facility] 200 [facility] [address] [phone] 02/28/2020 Telemedicine Gastroenterology Lyssa Stout CRNP 132 [facility] [place] [address] [phone] 03/11/2020 Office Visit Family Medicine Rajwinder Carter DO [address] [place], [place] [address] 04/29/2020 Nutrition Services Gastroenterology Melissa Omalley RDN [address] [facility] [address] [place] [id number] 05/06/2020 Office Visit Gynecology Obstetrics Aman Small, MANAV 400 [facility] [place] [id number] 06/30/2020 Office Visit Hematology Oncology Tono Sanchez MD 200 [facility] [address] [phone] 09/03/2020 Imaging Radiology Health Maintenance Due Date [...] Documents on File Type Date Recorded Patient Ecosystem Ecology Professor Expl 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
--- OUTSIDE RECORDS SUMMARY | 2023-05-10 22:43 | External Medical Summary | Summary of Care ---
Author Name Unknown Organization [place] [address] Care Team Providers Care Miniature Set Constructor Name Role Phone Rajwinder Lara DO Primary Care Provider [phone] Reason for Visit * Reason Comments eRx-Medication Refill Encounter Details Date Type Department Care Team Description 01/27/2020 Refill [place] [address] [place] [address] Rajwinder Lara DO [address] [place] [address] [phone] Localized edema; Venous stasis dermatitis of both [...] Dosing Unit 5 0 Active nystatin (NYSTOP) 206467 UNIT/GM powder Apply topically to affected area 3 times a day. 60 g 1 0 Active BD PEN NEEDLE MINI U/F 31G X 5 MMIndications:Type 2 diabetes mellitus with hemoglobin A1c goal of less than 7.0% ([facility]) use with basaglar at bedtime [...] AT BEDTIME 30 Tab 0 0 Active cefdinir (OMNICEF) 300 MG Capsule 0 0 Active furosemide (LASIX) 20 MG TabletIndications: [...] 30 Tab 0 0 01/30/20 20 Discontinued documented as of this encounter [...] pain 01/24/2012 01/17/2017 Genetic Sleep Disorder Research Other*[id number] 05/13/2011 04/07/2016 Obstructive sleep apnea 01/18/2011 12/27/19 [...] Telephone Encounter - Rajwinder Lara DO - 01/30/2020 1:12 PM EDT Signed Prescriptions: Disp Refills furosemide (LASIX) 20 MG Tablet 30 Tab 5 Sig: TAKE 1 TABLET BY MOUTH ONCE DAILY NEEDED FOR EDEMA Authorizing Provider: RAJWINDER LARA Ordering User: RADHA JOSHI cyclobenzaprine (FLEXERIL) 10 MG Tablet 30 Tab 0 Sig: TAKE 1 TABLET BY MOUTH EVERY NIGHT AT BEDTIME Authorizing Provider: RAJWINDER LARA ------ * Telephone Encounter - Radha Joshi [facility] - 01/28/2020 6:23 AM EDT Pending Prescriptions: Disp Refills cyclobenzaprine (FLEXERIL) 10 MG Tablet [P*30 Tab 0 Sig: TAKE 1 TABLET BY MOUTH EVERY NIGHT AT BEDTIME Signed Prescriptions: Disp Refills furosemide (LASIX) 20 MG Tablet 30 Tab 5 Sig: TAKE 1 TABLET BY MOUTH ONCE DAILY NEEDED FOR EDEMA Authorizing Provider: RAJWINDER LARA Ordering User: Efrain JOSHI * Telephone Encounter - Radha Joshi [facility] - 01/28/2020 6:23 AM EDT Refill pharmacists currently not authorized to approve refills for this class of medication per refill protocol. Please approve if appropriate. Thank you, Radha Joshi, PharmD. Clinical Pharmacist Pharmacy Refill Call Center 01/28/2020, 6:23 AM Pending Prescriptions: Disp Refills cyclobenzaprine (FLEXERIL) 10 MG Tablet [P*30 Tab 0 Sig: TAKE 1 TABLET BY MOUTH EVERY NIGHT AT BEDTIME Signed Prescriptions: Disp Refills furosemide (LASIX) 20 MG Tablet 30 Tab 5 Sig: TAKE 1 TABLET BY MOUTH ONCE DAILY NEEDED FOR EDEMA Authorizing Provider: RAJWINDER LARA Ordering User: RADHA JOSHI Last Office/Telemedicine Visit: 11/25/2019 Next Office Visit: 03/11/2020 Scheduled Provider(s): Rajwinder Lara, DO If no future appointments scheduled, and last appointment is greater than a year ago, please schedule patient for a follow-up appointment Last date the medication was ordered: 12/30/19 Pharmacy: [facility] [address] [place] [address] Is this request for a controlled substance?No Urine Drug Screen:No results found. However, due to the size of the patient record, not all encounters were searched. Please check Results Review for a complete set of results. Patient Phone Numbers Labs: Lab Results Component Value Date/Time CREAT 0.6 06/06/2019 01:03 PM POTASSIUM 4.0 06/06/2019 01:03 PM TSH 3.16 04/05/2019 06:40 AM LDLCALC 43 04/05/2019 06:40 AM LDLDIRECT 57 10/11/2017 01:18 PM ALT 27 06/06/2019 01:03 PM HGBA1C 6.9 (H) 11/26/2019 01:31 PM documented in this encounter Plan of Treatment Upcoming Encounters Date Type Specialty Care Team Description 02/10/2020 Hem/Onc Treatment Hematology Oncology [place], Chair [address] [facility] 200 [facility] [address] [phone] 02/28/2020 Telemedicine Gastroenterology Lyssa Stout CRNP 132 [facility] [address] [phone] 03/11/2020 Office Visit Family Medicine Rajwinder Lara DO [address] [place] [address] 04/29/2020 Nutrition Services Gastroenterology Melissa Omalley RDN [address] [place] [address] [place] [id number] 05/06/2020 Office Visit Gynecology Obstetrics Aman Small CNM [address] [place] [id number] 06/30/2020 Office Visit Hematology Oncology Tono Sanchez MD [address] 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
--- OUTSIDE RECORDS SUMMARY | 2023-05-10 22:43 | External Medical Summary | Summary of Care ---
Author Name Unknown Organization [place] [address] Care Team Providers Care Cover Maker Name Role Phone Rajwinder Carter Primary Care Provider [phone] Reason for Visit * Reason Comments Test Results Encounter Details Date Type Department Care Team Description 02/04/2020 Telephone Hematology/Oncology Treatment, [place] [address] [place] [address] Tono Sanchez MD [address] [place] [address] [phone] Test Results Allergies Active Allergy Reactions Severity [...] Dosing Unit 5 10/07/2019 Active nystatin (NYSTOP) 700603 UNIT/GM powder Apply topically to affected area 3 times a day. 60 g 1 10/16/2019 Active BD PEN NEEDLE MINI U/F 31G X 5 MMIndications:Type 2 diabetes mellitus with hemoglobin A1c goal of less than 7.0% ([facility]) use with basaglar at bedtime [...] pain 01/24/2012 01/17/2017 Genetic Sleep Disorder Research Other*[id number] 05/13/2011 04/07/2016 Obstructive sleep apnea 01/18/2011 12/27/19 [...] Telephone Encounter - Cassie Barboza RN - 02/04/2020 1:[address] Sanchez: "Blood workup done on 01/27/2020: - WBC- 2900, H&H- 8.7/29.6, Platelet- 78,000 - Serum iron 198, TIBC 350, iron saturation 57%. - Ferritin level --> 46 Presently she is receiving intravenous iron in the form of Venofer, received 3rd dose of IV iron with Venofer on 01/27/2020. She will issue 4th infusion of IV iron in early February 2020. Will repeat another CBCD, ferritin, iron profile about one month after the last IV iron treatment." Called and reviewed with patient. She notes that she is seeing her PCP today as she thinks she may have pneumonia again. Advised her to call office if she cannot come to venofer appt 02/10/20. She verbalized understanding. documented in this encounter Plan of Treatment Upcoming Encounters Date Type Specialty Care Team Description 02/04/2020 Office Visit Family Medicine Mary Dos Santos PA-C 132 [facility] [place] [address] [phone] 02/10/2020 Hem/Onc Treatment Hematology Oncology [place], Chair 10 Hem Onc Scenery [address] [place] [address] [phone] 02/28/2020 Telemedicine Gastroenterology Lyssa Stout, ZAK 132 [facility] [address] [phone] 03/11/2020 Office Visit Family Medicine Rajwinder Carter DO [address] [place], [place] [address] [phone] 04/29/2020 Nutrition Services Gastroenterology Melissa Omalley, SAMANTHA [address] [place] [address] [place] [id number] 05/06/2020 Office Visit Gynecology Obstetrics Aman Small, BOOM [address] [place] [address] 06/30/2020 Office Visit Hematology Oncology Tono Sanchez MD 200 [place] [address] 09/03/2020 Imaging Radiology Health Maintenance [...] on File Type Date Recorded 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
--- OUTSIDE RECORDS SUMMARY | 2023-05-10 22:43 | External Medical Summary | Summary of Care ---
Author Name Unknown Organization [facility] Address [place] [address] Care Team Providers Care Senior Laboratory Technician Name Role Phone Rajwinder Carter DO Primary Care Provider [phone] Reason for Visit * Reason Comments Advice Encounter Details Date Type Department Care Team Description 01/30/2020 Telephone [facility] [address] [place] [address] Rajwinder Carter DO [address] [place] [address] Advice Allergies Active Allergy Reactions [...] Dosing Unit 5 10/07/2019 Active nystatin (NYSTOP) 558464 UNIT/GM powder Apply topically to affected area [...] pain 01/24/2012 01/17/2017 Genetic Sleep Disorder Research Other*[id number] 05/13/2011 04/07/2016 Obstructive sleep apnea 01/18/2011 12/27/19 [...] - 01/30/2020 4:18 PM EDT Pham with [facility] called. Stated she faxed over alist of info she need attached along with the referral to get pt an appt. Pham keeps getting the referral but no other information with it. Pham needsall info before pt can be seen faxed to her at [phone]. Please advise, thank you. * Telephone Encounter [...] taking the medication prescribed to her at [facility] for the UTI. Patient states that she doesn't know what to do since she is still taking the medicine but still has the burning. Please advise and return call to patient at [phone]. documented in this encounter Plan of Treatment Upcoming Encounters Date Type Specialty Care Team Description 02/10/2020 Hem/Onc Treatment Hematology Oncology Maryellen, Chair 10 Hem Onc [facility] 200 [facility] [address] [phone] 02/28/2020 Telemedicine Gastroenterology Lyssa Stout CRNP 132 [facility] [place] [address] [phone] 03/11/2020 Office Visit Family Medicine Rajwinder Carter DO [address] [facility], [place] [address] [phone] 04/29/2020 Nutrition Services Gastroenterology Melissa Omalley, [place] [address] [place] [address] [place] [id number] 05/06/2020 Office Visit Gynecology Obstetrics Aman Small, BOOM [address] [place] [id number] 06/30/2020 Office Visit Hematology Oncology Tono Sanchez MD 200 [facility], [place] [address] [phone] 09/03/2020 Imaging Radiology Health Maintenance Due Date [...] on File Type Date Recorded Patient Software Support Technician Expl 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
--- OUTSIDE RECORDS SUMMARY | 2023-05-10 22:43 | External Medical Summary | Summary of Care ---
Author Name Unknown Organization [facility] Address [place] [address] Care Team Providers Care Drag Down Name Role Phone Rajwinder Carter DO Primary Care Provider [phone] Reason for Visit * Reason Comments Advice Encounter Details Date Type Department Care Team Description 01/30/2020 Telephone [facility] [address] [place] [address] Rajwinder Carter DO [address] [place] [address] Advice Allergies Active Allergy Reactions [...] Dosing Unit 5 10/07/2019 Active nystatin (NYSTOP) 161951 UNIT/GM powder Apply topically to affected area [...] pain 01/24/2012 01/17/2017 Genetic Sleep Disorder Research Other*[id number] 05/13/2011 04/07/2016 Obstructive sleep apnea 01/18/2011 12/27/19 [...] - 01/30/2020 4:18 PM EDT Pham with [facility] called. Stated she faxed over alist of info she need attached along with the referral to get pt an appt. Pham keeps getting the referral but no other information with it. Pham needsall info before pt can be seen faxed to her at [phone]. Please advise, thank you. * Telephone Encounter [...] taking the medication prescribed to her at [facility] for the UTI. Patient states that she doesn't know what to do since she is still taking the medicine but still has the burning. Please advise and return call to patient at [phone]. documented in this encounter Plan of Treatment Upcoming Encounters Date Type Specialty Care Team Description 02/10/2020 Hem/Onc Treatment Hematology Oncology Maryellen, Chair 10 Hem Onc [facility] 200 [place] [address] [phone] 02/28/2020 Telemedicine Gastroenterology Lyssa Stout CRNP 132 [facility] [address] [phone] 03/11/2020 Office Visit Family Medicine Rajwinder Carter DO [address] [place] [address] [phone] 04/29/2020 Nutrition Services Gastroenterology Melissa Omalley RDN [address] [place] [address] [place] [id number] 05/06/2020 Office Visit Gynecology Obstetrics Aman Small CNM [address] [place] [id number] 06/30/2020 Office Visit Hematology Oncology Tono Sanchez MD 200 [facility] [place] [address] [phone] 09/03/2020 Imaging Radiology Health Maintenance Due Date [...] Documents on File Type Date Recorded Patient Estate Manager Expl 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
--- OUTSIDE RECORDS SUMMARY | 2023-05-10 22:43 | External Medical Summary | Summary of Care ---
Author Name Unknown Organization [facility] [place] [address] Care Team Providers Care Canvas Goods Maker Name Role Phone Rajwinder Carter DO Primary Care Provider [phone] Reason for Visit * Reason Comments Advice Encounter Details Date Type Department Care Team Description 02/04/2020 Telephone [facility] [address] [place] [address] Rajwinder Carter DO [address] [place] [address] Advice Allergies Active Allergy Reactions [...] Dosing Unit 5 10/07/2019 Active nystatin (NYSTOP) 636558 UNIT/GM powder Apply topically to affected area 3 times a day. 60 g 1 10/16/2019 Active BD PEN NEEDLE MINI U/F 31G X 5 MMIndications:Type 2 diabetes mellitus with hemoglobin A1c goal of less than 7.0% ([facility]) use with basaglar at bedtime 100 [...] pain 01/24/2012 01/17/2017 Genetic Sleep Disorder Research Other*[id number] 05/13/2011 04/07/2016 Obstructive sleep apnea 01/18/2011 12/27/19 [...] Telephone Encounter - Yanira Graves LPN - 02/04/2020 12:59 PM EDT Pt states that she has been coughing for 3 days She is coughing up white mucus She states it feels like its in her chest She is having some SOB when she lays down flat only She states that it feels like it did when she had pneumonia a month ago-she was admitted for it Afebrile Denies any other sx States she was already tested for COVID-19 when she was in the hospital and it was negative Appt given for today * Telephone Encounter - Radha Elias OSA - 02/04/2020 12:57 PM EDT Reason for patient's call: advise - wants to know the symptoms of Pneumonia Caller was transferred to Yanira at the nurse line. documented in this encounter Plan of Treatment Upcoming Encounters Date Type Specialty Care Team Description 02/04/2020 Office Visit Family Medicine Mary Dos Santos PA-C [address] [facility] [place] [address] 02/10/2020 Hem/Onc Treatment Hematology Oncology [place], Chair [address] Hem Onc Sc[address] [place] [address] [phone] 02/28/2020 Telemedicine [facility]astroenterology [facility] [address] [phone] 03/11/2020 Office Visit Family Medicine Rajwinder Carter DO [address] [place] [address] [phone] 04/29/2020 Nutrition Services Gastroenterology Melissa Omalley, SAMANTHA [address] [place] [id number] 05/06/2020 Office Visit Gynecology Obstetrics Aman Small, BOOM [address] [place] [address] 06/30/2020 Office Visit Hematology Oncology Tono Sanchez MD 200 [facility], [place] [id number] 09/03/2020 Imaging Radiology Health Maintenance Due Date [...] on File Type Date Recorded 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
--- OUTSIDE RECORDS SUMMARY | 2023-05-10 22:43 | External Medical Summary | Summary of Care ---
Author Name Unknown Organization [place] [address] Care Team Providers Care Ripsaw Matcher Name Role Phone ArabellaRajwinder thacker Belen MORENO Primary Care Provider [phone] Reason for Visit * Reason Comments IV Therapy Venofer #3/4 Encounter Details Date Type Department Care Team Description 01/27/2020 Hem/Onc Treatment Hematology/Oncology Treatment, [place] [address] [place] [address] Maryellen, Chair 10 Hem Onc Scenery [address] [place] [address] [phone] Iron deficiency anemia due to chronic blood loss*; Splenomegaly Allergies Active Allergy Reactions Severity Noted Date Comments Penicillins Rash 02/12/2008 documented as of this encounter (statuses as of 01/27/2020) Medications Medication Sig Dispensed Refills Start Date [...] DAILY DIRECTED 16 g 5 08/01/2019 Active furosemide (LASIX) 20 MG TabletIndications:Lo calized edema,Venous stasis dermatitis of both lower extremities TAKE 1 TABLET BY MOUTH once daily NEEDED FoR EDEMA 30 Tab 4 09/13/2019 Active oxybutynin (DITROPAN) 5 MG Tablet Take 1 Tab by mouth 2 times a day. 60 Tab 4 09/13/2019 Active pantoprazole (PROTONIX) 20 MG TBECIndications:Rohit roesophageal [...] Dosing Unit 5 10/07/2019 Active nystatin (NYSTOP) 874041 UNIT/GM powder Apply topically to affected area [...] 10 MEQ TBCRIndications:Hypo kalemia TAKE 1 TABLET EVERY DAY WITH FOOD [...] ONCE DAILY 90 Tab 3 12/04/2019 Active levothyroxine (LEVOXYL) 150 MCG TabletIndications:Ac quired hypothyroidism TAKE 1 TABLET BY MOUTH ONCE DAILY at least 30 minutes prior to breakfast or other meds 90 Tab 1 12/04/2019 Active traZODone (DESYREL) 50 MG TabletIndications:Sl eep disturbances Take 1 Tab by mouth at bedtime. 90 Tab 1 12/04/2019 Active escitalopram (LEXAPRO) 20 MG TabletIndications:Re current major depressive disorder, in partial remission (HCC) Take 1 Tab by mouth daily. 90 Tab 1 12/04/2019 Active Dulaglutide (TRULICITY) 1.5 MG/0.5ML SOPNIndications:Type 2 diabetes mellitus with hemoglobin A1c goal of less than 7.0% (HCC) Inject 1 syringeful once weekly 6 mL 1 12/04/2019 Active cyclobenzaprine (FLEXERIL) 10 MG Tablet TAKE 1 TABLET BY MOUTH AT BEDTIME 30 Tab 0 12/30/2019 Active atorvaSTATin (LIPITOR) 40 MG TabletIndications:Dy slipidemia, goal LDL below 70 TAKE 1 TABLET BY MOUTH EVERY NIGHT AT BEDTIME 90 Tab 1 12/30/2019 Active MetFORMIN (GLUCOPHAGE) 1000 MG TabletIndications:Ty pe 2 diabetes mellitus with hemoglobin A1c goal of less than 7.0% (HCC) TAKE 1 TABLET BY MOUTH TWICE DAILY 180 Tab 1 01/06/2020 Active cefdinir (OMNICEF) 300 MG Capsule 0 01/20/2020 Active documented as of this encounter (statuses as of 01/27/2020) Active Problems Problem Noted Date Iron deficiency [...] as of this encounter (statuses as of 01/27/2020) Resolved Problems Problem Noted Date Resolved Date [...] pain 01/24/2012 01/17/2017 Genetic Sleep Disorder Research Other*[id number] 05/13/2011 04/07/2016 Obstructive sleep apnea 01/18/2011 12/27/19 [...] as of this encounter (statuses as of 01/27/2020) Immunizations Name Administration Dates Next Due HEP [...] have Coronavirus / COVID-19? No / Unsure 01/27/2020 12:34 PM EDT documented as of this encounter Last Filed Vital Signs Vital Sign Reading Time Taken Comments Blood Pressure 115/73 01/27/2020 1:05 PM EDT Pulse 62 01/27/2020 1:05 PM EDT Temperature 36 C (96.8 F) 01/27/2020 1:05 PM EDT Respiratory Rate 20 01/27/2020 1:05 PM EDT Oxygen Saturation - - Inhaled Oxygen Concentration - - Weight - - Height - - Body Mass Index - - documented in this encounter Nursing Notes * Mary Steve RN - 01/27/2020 3:23 PM EDT Goals: patient will remain free from injury Possible barriers to meeting goals: patient uses motorized wheelchair Stability of the patient: Moderately stable - low risk of patient condition declining or worsening Summary regarding today's goals: Met: patient left the office in stable condition, free from injury No coverage needed * Mary Steve RN - 01/27/2020 2:18 PM EDT The patient is in chair 4 today. The patient presents to the office today for Venofer #3/4. The patient states that she just got outof the hospital a week ago for a UTI. The patient has no voiced complaints today. Safety and Risk for Injury Patient will remain free from injury. Ensure appropriate safety devices are available. Provide and maintain safe environment. documented in this encounter Plan of Treatment Upcoming Encounters Date Type Specialty Care Team Description 01/29/2020 Telemedicine Gastroenterology Melissa Omalley, LU[place] [address] [place] [id number] 02/10/2020 Hem/Onc Treatment Hematology Oncology [place], Chair 10 Hem Onc [facility] 200 [place] [address] [phone] 02/28/2020 Office Visit Gastroenterology Lyssa Stout CRNP [facility] [address] [phone] 03/11/2020 Office Visit Family Medicine Rajwinder Carter DO [address], [place] [phone] 05/06/2020 Office Visit Gynecology Obstetrics Aman Small, BOO [facility] [place] [id number] 06/30/2020 Office Visit Hematology Oncology Toon Sanhcez MD 200 [facility], [place] [id number] 09/03/2020 Imaging Radiology Pending Results Name Type Priority Associated Diagnoses Date /Time FERRITIN Lab STAT Iron deficiency anemia due to chronic blood loss 01/27/2020 12:47 PM EDT IRON SCREEN, INCLUDING TIBC Lab STAT Iron deficiency anemia due to chronic blood loss 01/27/2020 12:47 PM EDT Scheduled Orders Name Type Priority Associated Diagnoses Orde r Schedule FERRITIN Lab STAT Iron deficiency anemia due to chronic blood loss Expected: 01/27/2020 (Approximate), Expires: 04/28/2020 IRON SCREEN, INCLUDING TIBC Lab STAT Iron deficiency anemia due to chronic blood loss Expected: 01/27/2020 (Approximate), Expires: 04/28/2020 Health Maintenance Due Date Last Done Comments [...] Not on filedocumented as of this encounter Results * CBC/DIFF (01/27/2020 12:47 PM EDT) WBC 2.95(L) 4.00 - 10.80 K/uL [facility] RBC 2.74(L) 3.85 - 5.15 M/uL [place] HGB 8.7(L) 12.0 - 15.3 g/dL [facility] HCT 29.6(L) 36.0 - 45.2 % [place] [place] MCV 108.0(H) 81.5 - 97.5 fL [facility] [place] MCH 31.8 27.0 - 34.0 pg [place] MCHC 29.4(L) 32.0 - 36.0 g/dL [facility] [place] RDW 20.9(H) 11.5 - 15.5 % [facility] [place] PLATELET COUNT 78(L) 140 - 400 K/uL [place] MPV 13.5(H) 6.6 - 11.1 fL [place] [place] NEUTS 46.8 40 - 75 % [place] LYMPHS 29.5 18 - 42 % [place] MONOS 8.8 1 - 11 % [place] EOS 13.9(H) 0 - 6 % [place] BASOS 1.0 0 - 2 % [place] ABS. NEUTS 1.38(L) 1.8 - 7.7 K/uL [place] ABS. LYMPHS 0.87(L) 1.0 - 4.8 K/uL [place] ABS. MONOS 0.26 0.0 - 1.1 K/uL [place] ABS. EOS 0.41 0.0 - 0.7 K/uL [place] ABS. BASOS 0.03 0.0 - 0.2 K/uL [place] ANISOCYTOSIS SLIGHT [place] MACROCYTOSIS PRESENT [place] ELLIPTOCYTES FEW [place] TEARDROP CELLS FEW [place] Specimen Performing Organization Address City/State/Zipcod e Phone Number [facility] [address] [place] [address] documented in this encounter Visit Diagnoses Diagnosis [...] Push, ONCE PRN Other, Hypersensitivity Reaction, Starting 01/27/20 at 1330, Until Mon01/28/20 at 1329, For 24 hours EPINEPHrine 1 MG/ML inj 0.3 mg 0.3 mg, Intramuscular, ONCE PRN Other, Hypersensitivity Reaction or Anaphylaxis, Starting 01/27/20 at 1330, Until Mon01/28/20 at 1329, For 24 hours hEParin Lock FLUSH 100 UNIT/ML inj 500 Units 500 Units (5 mL), IV Lock, PRN Other, IV Flush, Starting 01/27/20 at 1330, Until Mon01/28/20 at 1329, For 24 hours, Do not flush if lock, PICC, or central line not in place; IV infusing or unable to flush., hydrocortisone na succinate pf (SOLU-CORTEF) inj 100 mg 100 mg, IV Push, ONCE PRN Other, Hypersensitivity Reaction, Starting 01/27/20 at 1330, Until Mon01/28/20 at 1329, For 24 hours NSS infusion 500 mL, Intravenous, at 50 mL/hr, CONTINUOUS, Starting 01/27/20 at 1430, Until Mon01/28/20 at 0029 Start Infusion 01/27/2020 1:20 PM EDT 500 mL 50 mL/hr sodium chloride 0.9% flush/inj 10 mL 10 mL, IV Push, PRN Other, IV Flush, Starting 01/27/20 at 1330, Until Mon01/28/20 at 1329, For 24 hours, Do not flush if lock, PICC, or central line not in place; IV infusing or unable to flush., Inactive Administered Medications - up to 3 most recent administrations Medication Order MAR Action Action Date Dose Rate Site iron sucrose (VENOFER) 300 mg in NSS 250 mL ivpb 300 mg, IV Piggyback, ONCE, 1 dose, Mon01/27/20 at 1500, Administer over 90 Minutes Start Infusion 01/27/2020 1:30 PM EDT 300 mg 166.67 mL/hr documented in this encounter Advance Directives Documents on File Type Date Recorded Patient Group Care Worker Expl 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
--- OUTSIDE RECORDS SUMMARY | 2023-05-10 22:43 | External Medical Summary | Summary of Care ---
Author Name Unknown Organization [place] [address] Care Team Providers Care Brine Tank Operator Name Role Phone JohnbrianRajwinder thacker Primary Care Provider [phone] Reason for Visit * Reason Comments Weight Management Medical Management Encounter Details Date Type Department Care Team Description 01/29/2020 Telemedicine Nutrition & Weight Management, [facility] 132 [facility] [place] [address] Melissa Omalley RDN [address] [place] [id number] Obesity, morbid (more than 100 lbs over ideal weight or BMI > 40) (HCC)*; Type 2 diabetes mellitus with hemoglobin A1c goal of less than 7.0% (HCC); HTN, goal below 140/90; Cirrhosis of liver (HCC); Lymphedema; Dyslipidemia, goal LDL below 70; Acquired hypothyroidism Allergies Active Allergy Reactions Severity Noted Date Comments Penicillins Rash 02/12/2008 documented as of this encounter (statuses as of 01/29/2020) Medications Medication Sig Dispensed Refills Start Date [...] Dosing Unit 5 10/07/2019 Active nystatin (NYSTOP) 494243 UNIT/GM powder Apply topically to affected area [...] 0 12/30/2019 Active atorvaSTATin (LIPITOR) 40 MG TabletIndications:D yslipidemia, [...] GM Tablet 0 01/20/2020 Active levothyroxine (LEVOXYL) 150 MCG TabletIndications:A cquired hypothyroidism TAKE 1 TABLET BY MOUTH ONCE DAILY at least 30 minutes prior to breakfast or other meds 90 Tab 1 12/04/2019 0 Discontinu ed(Medicat ion/Dose Changed) documented as of this encounter (statuses as of 01/29/2020) Active Problems Problem Noted Date Iron deficiency [...] as of this encounter (statuses as of 01/29/2020) Resolved Problems Problem Noted Date Resolved Date [...] pain 01/24/2012 01/17/2017 Genetic Sleep Disorder Research Other*[id number] 05/13/2011 04/07/2016 Obstructive sleep apnea 01/18/2011 12/27/19 [...] as of this encounter (statuses as of 01/29/2020) Immunizations Name Administration Dates Next Due HEP [...] Pressure - - Pulse - - Temperature - - Respiratory Rate - - Oxygen Saturation - - Inhaled Oxygen Concentration - - Weight 128.4 kg (283 lb) 01/29/2020 12: 30 PM EDT Patient reported Height - - Body Mass Index 57.16 12/03/2019 12:07 PM EDT documented in this encounter Patient Instructions * Patient Instructions* Melissa Omalley RDN - 01/29/2020 12:44 PM EDT PATIENT GOALS: 1) Patient to try smaller frequent meals to aid with better tolerance. Patient to use an oral meal replacement such as Ensure High Protein to aid with weight management as well as meeting adequate calories and nutrient needs. 2) Patient to focus on a well balanced at meals such as a protein, fruit vegetable and limited starch. Patient to focus on choosing more whole grain breads, whole grain pastas etc in limited amounts. 3) Patient to drink more water with goal of 48-64 ounces day. documented in this encounter Progress Notes * Melissa Omalley RDN - 01/29/2020 12:32 PM EDT GI/NUTRITION CONSULT [facility] TELEPHONE NUTRITION COUNSELING SESSION After connecting to the patient via telephone, the patient was identified by name and date of . Patient was then informed that this was a telephone call only visit. Informed patient this telephone nutrition counseling session is completed in a confidential area with the door closed with no oneelse in the room. The patient agreed to participate. This is an established patient evaluated in my specialty within the past three years yes Visit Disposition: Routine follow-up 15 minutes spent with patient today. PATIENT: Shaina Bustos DATE:01/29/2020 NUTRITION ASSESSMENT Diagnosis Code for referral for [...] for return visit nutrition counseling for weight management. Patientstated she has been in and out of the hospital for pneumonia and a urinary tract infection. Describes typical diet history/24 hr recall: Breakfast: Egg and a piece of toast Lunch: [place] Dinner: Hamburger on a bun with carrots or corn Snack: Grapes Drinks: 48-64 ounces of fluid a day Patient complains of feeling full after eating. Staff reports patient burping After eating a meal every time. 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 Obtained weight of scooter from personal lines sales rep: 374 lbs Wt Readings from Last 10 Encounters: 01/29/20 128.4 kg (283 lb) 12/23/19 128.4 kg (283 lb) 12/03/19 127.5 kg (281 lb) 06/06/19 116.1 kg (256 lb) 05/22/19 120.7 kg (266 lb) 02/06/19 118 kg (260 lb 1.6 oz) 12/24/18 118.1 kg (260 lb 6.4 oz) 12/24/18 118.1 kg (260 lb 6.4 oz) 12/21/18 115.2 kg (254 lb) 09/24/18 115.2 kg (254 lb) WEIGHT CHANGES: Weight decreased 10 lbs the same since last visit. MNT: Calorie Controlled Diet, Consistent Carbohydrate Patient is interested in the following treatment options for obesity: medical management. BARRIERS TO LEARNING: None SPECIAL EDUCATION NEEDS: None LABS: Component Latest Ref Rng & Units 11/26/2019 HEMOGLOBIN, A1C 4.0 - 5.6 % 6.9 (H) EST AVG GLUCOSE <126 151 (H) Component Latest Ref Rng & Units 11/11/2019 HEMOGLOBIN, A1C 4.0 - 5.6 % 7.3 (H) EST AVG GLUCOSE <126 163 (H) Component Latest Ref Rng & Units 11/26/2019 WBC 4.00 - 10.80 K/uL 3.48 (L) RBC 3.85 - 5.15 M/uL 3.22 (L) HGB 12.0 - 15.3 g/dL 9.3 (L) HCT 36.0 - 45.2 % 31.8 (L) MCV 81.5 - 97.5 fL 98.8 (H) MCH 27.0 - 34.0 pg 28.9 MCHC 32.0 - 36.0 g/dL 29.2 (L) RDW 11.5 - 15.5 % 18.9 (H) PLATELET COUNT 140 - 400 K/uL 88 (L) MPV 6.6 - 11.1 fL 12.6 (H) NEUTS 40 - 75 % 59.3 LYMPHS 18 - 42 % 24.7 MONOS 1 - 11 % 8.3 EOS 0 - 6 % 6.6 (H) BASOS 0 - 2 % 1.1 ABS. NEUTS 1.8 - 7.7 K/uL 2.06 ABS. LYMPHS 1.0 - 4.8 K/uL 0.86 (L) ABS. MONOS 0.0 - 1.1 K/uL 0.29 ABS. EOS 0.0 - 0.7 K/uL 0.23 ABS. BASOS 0.0 - 0.2 K/uL 0.04 PHYSICAL ACTIVITY:Light SUPPLEMENTS: Vitamin C PRIOR NUTRITION COUNSELING: No prior counseling DAILY ENERGY/NUTRIENT NEEDS:3121-2504 KCALS for wt loss DIET RECALL INDICATES: Patient really hasn't made much change in diet since last review. Inadequate fruit and vegetable intake Adequate fluid intake Patient stated trying to watch portions at meals KNOWLEDGE ASSESSMENT: adequate knowledge NUTRITION DIAGNOSIS Food and nutrition related knowledge deficit in relation to calorie intake exceeding calorie expenditure as evidenced by diagnosis of Obesity. NUTRITION INTERVENTION Portion Controlled Diet/Exercise as tolerated. PATIENT GOALS: 1) Patient to try smaller frequent meals to aid with better tolerance. Patient to use an oral meal replacement such as Ensure High Protein to aid with weight management as well as meeting adequate calories and nutrient needs. 2) Patient to focus on a well balanced at meals such as a protein, fruit vegetable and limited starch. Patient to focus on choosing more whole grain breads, whole grain pastas etc in limited amounts. 3) Patient to drink more water with goal of 48-64 ounces day. EXPECTED OUTCOMES: Demonstrated interest in learning. Expect compliance with diet recommendations. PLAN: Patient scheduled to return in 3 months; dietitian phone # given for future reference. 15 minutes return phone isit Melissa Omalley RDN documented in this encounter Nursing Notes * Alirio Corcoran LPN - 01/29/2020 12:32 PM EDT Patient identified by full name and date of Chief Complaint Patient presents with Weight Management Medical Management documented in this encounter Plan of Treatment Upcoming Encounters Date Type Specialty Care Team Description 02/10/2020 Hem/Onc Treatment Hematology Oncology [place], Chair 10 Hem Onc Sc[address]ery [address] [place] [address] 02/28/2020 Telemedicine Gastroenterology Lyssa Stout CRNP 132 [facility] [place] [address] [phone] 03/11/2020 Office Visit Family Medicine Rajwinder Carter DO [address], [place] [phone] 04/29/2020 Nutrition Services Gastroenterology Melissa Omalley, RDN [address] [facility] [place] [id number] 05/06/2020 Office Visit Gynecology Obstetrics Aman Small, CNM [address] [place] [id number] 06/30/2020 Office Visit Hematology Oncology Tono Sanchez MD 200 [place] [address] [phone] 09/03/2020 Imaging Radiology Scheduled Orders Name Type Priority Associated Diagnoses Orde r Schedule PHONE ASSESS/MGMT W/ NON PHYS 11-20 MIN Procedures Routine Obesity, morbid (more than 100 lbs over ideal weight or BMI > 40) (HCC) Type 2 diabetes mellitus with hemoglobin A1c goal of less than 7.0% (HCC) HTN, goal below 140/90 Cirrhosis of liver (HCC) Lymphedema Dyslipidemia, goal LDL below 70 Acquired hypothyroidism Ordered: 01/29/2020 Health Maintenance Due Date Last Done Comments [...] Documents on File Type Date Recorded Patient Vortex Operator Expl 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
--- OUTSIDE RECORDS SUMMARY | 2023-05-10 22:43 | External Medical Summary | Summary of Care ---
Author Name Unknown Organization [place] [address] Care Team Providers Care Crop Specialist Name Role Phone Rajwinder Carter DO Primary Care Provider [phone] Reason for Referral * Evaluate & Treat - Unlimited Visits (Within 10 days (routine)) Status Reason Specialty Diagnoses / Procedures Referred By Contact Referred To Contact Pending Review Specialty Services Required Urology Diagnoses Recurrent UTI Rajwinder Carter, DO [address] [place] [address] Reason for Visit * Reason Comments Hospital Follow-Up Encounter Details Date Type Department Care Team Description 01/27/2020 Office Visit Family [address] [address] Rajwinder Carter, DO [address], [place] [id number] Hospital discharge follow-up*; Urinary tract infection without hematuria, site unspecified; Cirrhosis of liver without ascites, unspecified hepatic cirrhosis type (HCC); NG (nonalcoholic steatohepatitis); HTN, goal below 140/90; Iron deficiency anemia due to chronic blood loss; Recurrent UTI Allergies Active Allergy Reactions Severity Noted Date [...] Dosing Unit 5 10/07/2019 Active nystatin (NYSTOP) 222757 UNIT/GM powder Apply topically to affected area [...] pain 01/24/2012 01/17/2017 Genetic Sleep Disorder Research Other*[id number] 05/13/2011 04/07/2016 Obstructive sleep apnea 01/18/2011 12/27/19 [...] have Coronavirus / COVID-19? Unable to assess 01/27/2020 11:06 AM EDT documented as of this encounter Last Filed Vital Signs Vital Sign Reading Time Taken Comments Blood Pressure 116/60 01/27/2020 11:15 AM EDT Pulse 88 01/27/2020 11:15 AM EDT Temperature 36 C (96.8 F) 01/27/2020 11:15 AM EDT Respiratory Rate 20 01/27/2020 11:15 AM EDT Oxygen Saturation - - Inhaled Oxygen Concentration - - Weight - - Height - - Body Mass Index - - documented in this encounter Progress Notes * Rajwinder Carter DO - 01/27/2020 11:39 AM EDT SUBJECTIVE: Chief Complaint Patient presents with Hospital Follow-Up HPI: Shaina Bustos is a 64 year old female who presents today for hospital follow-up. Pt was admitted on 01/14 with generalized weakness and UTI. Urine grew proteus. Blood cultures were negative. She was continued on Rocephin. She was advised to follow-up with urology as an outpatient. Pt also with melena. She was continued on protonix and evaluated by GI. She was started on carafate. Her aspirin was restarted. Endoscopic evaluation was deferred. It was advised that she have H&H monitored closely. Other issues were noted to be stable. She was discharged to home on 01/19. Pt states that she is feeling "some better" since her hospital stay. She is on her antibiotic. She notes no urinary symptoms. She coughed some last night. She is using her inhaler as needed. She is not really using her nebulizer. No fevers. She is using the Carafate. She still has her caregiver coming in. She has an iron infusion today. She is not sure if there is any blood in her stools. PHM: Patient Active Problem List Diagnosis Code Edema R60.9 Venous insufficiency I87.2 Spinal stenosis of lumbar region without neurogenic claudication M48.061 Cerebral palsy ([facility]) G80.9 HTN, goal below 140/90 I10 [...] 7.0% ([facility]) E11.9 Vitamin D deficiency E55.9 Restrictive lung disease J98.4 Obesity, morbid (more than 100 lbs over ideal weight or BMI > 40) ([facility]) E66.01 Dyslipidemia, goal LDL below 70 E78.5 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 R39.81 Acquired hypothyroidism E03.9 Chronic pain syndrome G89.4 MEDICATION USE AGREEMENT [id number] History of Clostridium difficile colitis Z86.19 Cirrhosis of liver ([facility]) K74.60 THAD on CPAP G47.33, Z99.89 Wheelchair dependent Z99.3 History of recent fall Z91.81 Pancytopenia ([facility]) D61.818 Ambulatory dysfunction R26.2 Fall W19.XXXA Sprain of right ankle S93.401A DM type 2 with diabetic peripheral neuropathy ([facility]) E11.42 Insomnia G47.00 Recurrent major depressive disorder, in partial remission (HCC) F33.41 Impaired mobility and ADLs Z74.09 Generalized [...] by mouth at bedtime. 90 Tab 1 Glucose Blood (BLOOD GLUCOSE TEST) STRP Use [...] with basaglar at bedtime 100 Each 10 Semaglutide, 1 MG/DOSE, (OZEMPIC, 1 MG/DOSE,) 2 MG/1.5ML SOPN Inject 1 mg under the skin once aweek. DX:E11.9 2 Pre-filled Pen Syringe Dosing Unit 5 albuterol sulfate (PROVENTIL) (2.5 MG/3ML) 0.083% nebulizer solution Inhale 1 Vial via nebulizer every 6 hours as needed for Wheezing. 120 Vial 11 furosemide (LASIX) 20 MG Tablet TAKE 1 TABLET BY MOUTH once daily NEEDED FoR EDEMA 30 Tab 4 oxybutynin (DITROPAN) 5 MG Tablet Take 1 [...] TABS 1 tab daily 1 Tab 0 cefdinir (OMNICEF) 300 MG Capsule Blood Glucose Monitoring Suppl (BLOOD GLUCOSE MONITOR SYSTEM) w/Device KIT Use to test once per day. 1 Kit 0 nystatin (NYSTOP) 773740 UNIT/GM powder Apply topically to affected area 3 times a day. 60 g 1 Past Medical History: Diagnosis Date Chronic hypoxemic [...] Age of Onset Heart Disorder Father of [place] at age 61 Diabetes Father Heart Disorder Mother of [place] age 72 Cancer None Arthritis None Stroke [...] fatigue, fever and unexpected weight change. Respiratory: Positive for cough. Negative for chest tightness, shortness of breath and wheezing. Cardiovascular: Negative for chest pain, palpitations and leg swelling. Gastrointestinal: Negative for abdominal pain, constipation, diarrhea, nausea and vomiting. Musculoskeletal: Negative for arthralgias, gait problem and joint swelling. Skin: Negative for color change, pallor and rash. OBJECTIVE: BP 116/60 | Pulse 88 | Temp (Src) 96.8 (Tympanic) | Resp 20 | Wt (0.000kg) PHYSICAL EXAM: Physical Exam Constitutional: General: She is not in acute distress. Appearance: She is well-developed. She is not ill-appearing. Cardiovascular: Rate and Rhythm: Normal rate [...] abdominal tenderness. There is no guarding. Musculoskeletal: General: No tenderness or deformity. Skin: General: Skin is warm and dry. Coloration: Skin is not pale. Findings: No erythema or rash. Neurological: Mental Status: She is alert and oriented to person, place, and time. ASSESSMENT/PLAN: (Z09) Hospital discharge follow-up (primary encounter diagnosis) (N39.0) Urinary tract infection without hematuria, site unspecified Plan: DISCH MED RECON CUR MED LIS Pt will finish out antibiotics. Will see urology. (K74.60) Cirrhosis of liver without ascites, unspecified hepatic cirrhosis type (HCC) (K75.81) NG (nonalcoholic steatohepatitis) Plan: Pt will continue to follow with GI. Remain on current regimen. Advised of importance of compliance. (I10) HTN, goal below 140/90 Plan: BP ok. She will remain on current regimen. (D50.0) Iron deficiency anemia due to chronic blood loss Plan: CBC/DIFF Pt advised to monitor stools closely. Complete CBC. She will continue with iron infusions. (N39.0) Recurrent UTI Plan: UROLOGY REFERRAL OP Pt would like to schedule with urology given recurrent UTI. Follow-up: as scheduled Rajwinder Carter DO documented in this encounter Nursing Notes * Jovana Lambert RN - 01/27/2020 11:11 AM EDT Here for hospital follow up documented in this encounter Plan of Treatment Upcoming Encounters Date Type Specialty Care Team Description 01/27/2020 Laboratory Laboratory [place], Lab Scenery [address] [facility] [place] [address] [phone] 01/27/2020 Hem/Onc Treatment Hematology Oncology [place], Chair 10 Hem Onc Sc[address] [place] [address] [phone] 01/29/2020 Telemedicine Gastroenterology Melissa Omalley RDN [address] [place] [address] [phone] 02/26/2020 Office Visit Gastroenterology Lyssa Stout CRNP 132 [facility] [place] [address] [phone] 03/11/2020 Office Visit Family Medicine Rajwinder Carter DO [address] [facility], [place] [address] 05/06/2020 Office Visit Gynecology Obstetrics Aman Small[facility] BOO [facility] [place] [address] 06/30/2020 Office Visit Hematology Oncology Tono Sanchez MD 200 [place] [address] [phone] 09/03/2020 Imaging Radiology Scheduled Orders Name Type Priority Associated Diagnoses Orde r Schedule CBC/DIFF Lab Routine Iron deficiency anemia due to chronic blood loss Expected: 01/27/2020 (Approximate), Expires: 01/26/2021 Scheduled Referrals Name Type Priority Associated Diagnoses Orde r Schedule UROLOGY REFERRAL OP Referral Within 10 da ys (routine) Recurrent UTI Ordered: 01/27/2020 Health Maintenance Due Date Last Done Comments [...] Primary Other follow-up examination Urinary tract infection without hematuria, site unspecified Cirrhosis of liver without ascites, unspecified hepatic cirrhosis type (HCC) NG (nonalcoholic steatohepatitis) Other chronic nonalcoholic liver disease HTN, goal below 140/90 Unspecified essential hypertension 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 (chronic) Recurrent UTI Urinary tract infection, site not specified documented in this encounter Advance Directives Documents on File Type Date Recorded Patient Dental Appliance Mechanic Expl 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
--- OUTSIDE RECORDS SUMMARY | 2023-05-10 22:44 | External Medical Summary ---
Author Name Unknown Address [address] [id number] Phone Organization K01:[facility] [address] [id number] Laboratory Report Ordering Provider Test Date Status JACOB CORBETT 01/27/2020 12:47:00 Final Observation Date Value Abnormality Reference (Units ) Status Iron 01/27/2020 20:32 198 Above high normal 33-151 (ug/dL) Final Iron-binding capacity 01/27/2020 20:32 350 250-425 (ug/dL) Final Transferrin Sat % 01/27/2020 20:32 57 Above high normal 15-55 (%) Final Performing Location [facility] [address] Located within [facility] [address]
--- OUTSIDE RECORDS SUMMARY | 2023-05-10 22:44 | External Medical Summary | Summary of Care ---
Author Name Unknown Organization [facility] Address [place] [address] Care Team Providers Care Metal Burrer Name Role Phone Rajwinder Carter DO Primary Care Provider [phone] Reason for Visit * Reason Comments Advice Encounter Details Date Type Department Care Team Description 01/15/2020 Telephone [facility] [address] [place] [address] Rajwinder Carter DO [address] [place] [address] Advice Allergies Active Allergy Reactions Severity Noted Date Comments Penicillins Rash 02/12/2008 documented as of this encounter (statuses as of 01/15/2020) Medications Medication Sig Dispensed Refills Start Date [...] Dosing Unit 5 10/07/2019 Active nystatin (NYSTOP) 173333 UNIT/GM powder Apply topically to affected area [...] TWICE DAILY 180 Tab 1 01/06/2020 Active documented as of this encounter (statuses as of 01/15/2020) Active Problems Problem Noted Date Iron deficiency [...] as of this encounter (statuses as of 01/15/2020) Resolved Problems Problem Noted Date Resolved Date [...] pain 01/24/2012 01/17/2017 Genetic Sleep Disorder Research Other*[id number] 05/13/2011 04/07/2016 Obstructive sleep apnea 01/18/2011 12/27/19 [...] as of this encounter (statuses as of 01/15/2020) Immunizations Name Administration Dates Next Due HEP [...] have Coronavirus / COVID-19? Unable to assess 01/10/2020 1:47 PM EDT documented as of this encounter Miscellaneous Notes * Telephone Encounter - Sandra Vincent LPN - 01/15/2020 12:20 PM EDT Per Brianne Pal- sent to ER, called patient back and patient said that someone there already called 911. * Telephone Encounter - Shelly Hirsch LPN - 01/15/2020 11:54 AM EDT Patient is calling. She is having chest pain. Said it goes from the right to the left. Rates the pain as a 10. Said she is gasping for air. Having shortness of breath. [facility]. Her bp was 114/77. She just got over pneumonia. She was having problems eating. Was gasping for breathes in between bites. Really scared the aide. She is sweaty. Took her temperature. It is normal. She is putting her oxygen on her. She is coughing, but she sounds like she is bubbling. Can't get it anything to come up. Attempted to call the office and got kicked off [employer]. Unableto call office at this time. High priority message sent. * Telephone Encounter - Naga Arias OSA - 01/15/2020 11:47 AM EDT Reason for patient's call: Chest pain, Caller was transferred to [facility] at the nurse line. documented in this encounter Plan of Treatment Upcoming Encounters Date Type Specialty Care Team Description 01/16/2020 Hem/Onc Treatment Hematology Oncology [place], Chair 11 Hem Onc [facility] 200 [place] [address] [phone] 01/27/2020 Office Visit Family Medicine Rajwinder Carter, DO [address] [facility] [place] [id number] 01/29/2020 Telemedicine Gastroenterology Melissa Omalley RDN [address] [facility] 230 [facility] [id number] 02/26/2020 Office Visit Gastroenterology [facility] CR[facility] [address] [facility] [address] [phone] 03/11/2020 Office Visit Family Medicine Rajwinder Carter, DO [address] [facility] [place] [id number] 05/06/2020 Office Visit Gynecology Obstetrics Aman Small, MANAV [address] [facility] [id number] 06/30/2020 Office Visit Hematology Oncology Tono Sanchez MD 200 [facility], [place] [address] [phone] 09/03/2020 Imaging Radiology Health Maintenance Due Date [...] on File Type Date Recorded Patient Commercial Collector Expl 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
--- OUTSIDE RECORDS SUMMARY | 2023-05-10 22:44 | External Medical Summary ---
Author Name Unknown Address [address] [place] [address] Phone Organization K09:[facility] [address] [facility] [place] [address] Laboratory Report Ordering Provider Test Date Status JACOB CORBETT 01/27/2020 12:47:00 Final Observation Date Value Abnormality Reference (Units ) Status WBC, Total 01/27/2020 12:59 2.95 Below low normal 4.00-10.80 (K/uL) Final RBC 01/27/2020 12:59 2.74 Below low normal 3.85-5.15 (M/uL) Final Hemoglobin 01/27/2020 12:59 8.7 Below low normal 12.0-15.3 (g/dL) Final HCT 01/27/2020 12:59 29.6 Below low normal 36.0-45.2 (%) Final MCV 01/27/2020 12:59 108.0 Above high normal 81.5-97.5 (fL) Final MCH 01/27/2020 12:59 31.8 27.0-34.0 (pg) Final MCHC 01/27/2020 12:59 29.4 Below low normal 32.0-36.0 (g/dL) Final RDW 01/27/2020 12:59 20.9 Above high normal 11.5-15.5 (%) Final Platelets 01/27/2020 12:59 78 Below low normal 140-400 (K/uL) Final MPV 01/27/2020 12:59 13.5 Above high normal 6.6-11.1 (fL) Final Segs 01/27/2020 13:03 46.8 40-75 (%) Final Lymphs % 01/27/2020 13:03 29.5 18-42 (%) Final Monos 01/27/2020 13:03 8.8 1-11 (%) Final Eosinophils 01/27/2020 13:03 13.9 Above high normal 0-6 (%) Final Basos 01/27/2020 13:03 1.0 0-2 (%) Final Neutrophils Bld 01/27/2020 13:03 1.38 Below low normal 1.8-7.7 (K/uL) Final Lymphs, absolute 01/27/2020 13:03 0.87 Below low normal 1.0-4.8 (K/uL) Final Monos, Abs 01/27/2020 13:03 0.26 0.0-1.1 (K/uL) Final Eos, Abs 01/27/2020 13:03 0.41 0.0-0.7 (K/uL) Final Basos, Abs 01/27/2020 13:03 0.03 0.0-0.2 (K/uL) Final Anisocytosis Bld Ql Smear 01/27/2020 13:03 SLIGHT Final Macrocytes Bld Ql Smear 01/27/2020 13:03 PRESENT Final Elliptocytes Bld Ql Smear 01/27/2020 13:03 FEW Final Dacryocytes Bld Ql Smear 01/27/2020 13:03 FEW Final [place]forming Location [facility] [address] [place] [address]
--- OUTSIDE RECORDS SUMMARY | 2023-05-10 22:44 | External Medical Summary | Summary of Care ---
Author Name Unknown Organization [place] [address] Care Team Providers Care Canal Boat Operator Name Role Phone Rajwinder Carter DO Primary Care Provider [phone] Encounter Details Date Type Department Care Team Description 01/15/2020 Scan Encounter Unspecified Department <No scans attached> Allergies Active Allergy Reactions Severity Noted Date Comments Penicillins Rash 02/12/2008 documented as of this encounter (statuses as of 01/16/2020) Medications Medication Sig Dispensed Refills Start Date [...] Dosing Unit 5 10/07/2019 Active nystatin (NYSTOP) 129670 UNIT/GM powder Apply topically to affected area 3 times a day. 60 g 1 10/16/2019 Active BD PEN NEEDLE MINI U/F 31G X 5 MMIndications:Type 2 diabetes mellitus with hemoglobin A1c goal of less than 7.0% ([facility]) use with basaglar at bedtime 100 [...] as of this encounter (statuses as of 01/16/2020) Active Problems Problem Noted Date Iron deficiency [...] as of this encounter (statuses as of 01/16/2020) Resolved Problems Problem Noted Date Resolved Date [...] pain 01/24/2012 01/17/2017 Genetic Sleep Disorder Research Other*[id number] 05/13/2011 04/07/2016 Obstructive sleep apnea 01/18/2011 12/27/19 [...] as of this encounter (statuses as of 01/16/2020) Immunizations Name Administration Dates Next Due HEP [...] Team Description 01/16/2020 Hem/Onc Treatment Hematology Oncology [place], Chair 11 Hem Onc [facility] 200 [facility] [place] [address] [phone] 01/27/2020 Office Visit Family Medicine Rajwinder Carter, DO [address] [place], [place] [phone] 01/29/2020 Telemedicine Gastroenterology Melissa [facility]malley RDN [address] [facility] [address] [address] [phone] 02/26/2020 Office Visit Gastroenterology Lyssa Stout CRNP [address] [place] [address] [phone] 03/11/2020 Office Visit Family Medicine Rajwinder Carter, DO [address] [place], [place] [address] 05/06/2020 Office Visit Gynecology Obstetrics Aman Small, MANAV [address] [place] [address] [phone] 06/30/2020 Office Visit Hematology Oncology Tono Sanchez MD 200 [place] [address] [phone] 09/03/2020 Imaging Radiology Health Maintenance Due Date [...] on File Type Date Recorded Patient Vp Account Director Expl 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
--- OUTSIDE RECORDS SUMMARY | 2023-05-10 22:44 | External Medical Summary | Summary of Care ---
Author Name Unknown Organization [facility] Address [place] [address] Care Team Providers Care Auto Body Repairer Name Role Phone Rajwinder Carter DO Primary Care Provider [phone] Reason for Visit * Reason Comments Advice Encounter Details Date Type Department Care Team Description 01/13/2020 Telephone [facility] [address] [place] [address] Rajwinder Carter DO [address] [place] [address] Advice Allergies Active Allergy Reactions Severity Noted Date Comments Penicillins Rash 02/12/2008 documented as of this encounter (statuses as of 01/13/2020) Medications Medication Sig Dispensed Refills Start Date [...] Dosing Unit 5 10/07/2019 Active nystatin (NYSTOP) 885478 UNIT/GM powder Apply topically to affected area [...] as of this encounter (statuses as of 01/13/2020) Active Problems Problem Noted Date Iron deficiency [...] as of this encounter (statuses as of 01/13/2020) Resolved Problems Problem Noted Date Resolved Date [...] pain 01/24/2012 01/17/2017 Genetic Sleep Disorder Research Other*[id number] 05/13/2011 04/07/2016 Obstructive sleep apnea 01/18/2011 12/27/19 [...] as of this encounter (statuses as of 01/13/2020) Immunizations Name Administration Dates Next Due HEP [...] encounter Miscellaneous Notes * Telephone Encounter - Shannan Bojorquez LPN - 01/13/2020 2:01 PM EDT Pt notified. * Telephone Encounter - Rajwinder Carter DO - 01/13/2020 1:32 PM EDT Without seeing it, difficult to say what it is. If it is not warm or red then she should simply monitor. If worsening, can give us a call. * Telephone Encounter - Imelda Galvan OSA - 01/13/2020 9:49 AM EDT Patient calling, she was in to see Dr Carter last week and forgot to show her a lump on her leg, she states it is near her knee, it hurts, it feels soft, it is moveable, and it is not red. She would like someone to call her back at [phone] documented in this encounter Plan of Treatment Upcoming Encounters Date Type Specialty Care Team Description 01/16/2020 Hem/Onc Treatment Hematology Oncology [place], Chair 11 Hem Onc Scenery [address] [place] [address] [phone] 01/27/2020 Office Visit Family Medicine Rajwinder Carter DO [address] [facility] [place] [address] 01/29/2020 Telemedicine Gastroenterology Melissa Omalley, [place] [address] [place] [id number] 02/26/2020 Office Visit Gastroenterology Lyssa Stout, ZAK 132 [place] [address] [phone] 03/11/2020 Office Visit Family Medicine Rajwinder Carter DO [address] [place] [facility] [place] [address] 05/06/2020 Office Visit Gynecology Obstetrics Aman Small, BOOM [address] [facility] [place] [address] 06/30/2020 Office Visit Hematology Oncology Tono Sanchez MD 200 [facility], [place] [id number] 09/03/2020 Imaging Radiology Health Maintenance Due Date [...] Documents on File Type Date Recorded 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
--- OUTSIDE RECORDS SUMMARY | 2023-05-10 22:44 | External Medical Summary | Summary of Care ---
Author Name Unknown Organization [place] [address] Care Team Providers Care Chucking And Sawing Machine Operator Name Role Phone Rajwinder Carter DO Primary Care Provider [phone] Encounter Details Date Type Department Care Team Description 01/20/2020 Scan Encounter Unspecified Department <No scans attached> Allergies Active Allergy Reactions Severity Noted Date Comments Penicillins Rash 02/12/2008 documented as of this encounter (statuses as of 01/21/2020) Medications Medication Sig Dispensed Refills Start Date [...] Dosing Unit 5 10/07/2019 Active nystatin (NYSTOP) 881712 UNIT/GM powder Apply topically to affected area [...] as of this encounter (statuses as of 01/21/2020) Active Problems Problem Noted Date Iron deficiency [...] as of this encounter (statuses as of 01/21/2020) Resolved Problems Problem Noted Date Resolved Date [...] pain 01/24/2012 01/17/2017 Genetic Sleep Disorder Research Other*[id number] 05/13/2011 04/07/2016 Obstructive sleep apnea 01/18/2011 12/27/19 [...] as of this encounter (statuses as of 01/21/2020) Immunizations Name Administration Dates Next Due HEP [...] have Coronavirus / COVID-19? Unable to assess 01/20/2020 11:22 AM EDT documented as of this encounter Plan of Treatment Upcoming Encounters Date Type Specialty Care Team Description 01/27/2020 Office Visit Family Medicine Rajwinder Carter, DO [address] [facility] [place] [id number] 01/29/2020 Telemedicine Gastroenterology Melissa Omalley, SAMANTHA [address] [facility] [address] [facility] 230 [facility] [place] [id number] 02/26/2020 Office Visit Gastroenterology Lyssa Stout CRNP 132 [place] [address] [phone] 03/11/2020 Office Visit Family Rajwinder Lopez DO [address] [facility] [place] [id number] 05/06/2020 Office Visit Gynecology Obstetrics Aman Small CN [facility] [id number] 06/30/2020 Office Visit Hematology Oncology Tono Sanchez MD 200 [facility], [place] [address]479[address] 09/03/2020 Imaging Radiology Health Maintenance Due Date [...] Documents on File Type Date Recorded Patient Architect Internship Expl 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
--- OUTSIDE RECORDS SUMMARY | 2023-05-10 22:44 | External Medical Summary | Summary of Care ---
Author Name Unknown Organization [place] [address] Care Team Providers Care Shell Freezing Machine Operator Name Role Phone Rajwinder Carter DO Primary Care Provider [phone] Encounter Details Date Type Department Care Team [...] Dosing Unit 5 10/07/2019 Active nystatin (NYSTOP) 395349 UNIT/GM powder Apply topically to affected area [...] pain 01/24/2012 01/17/2017 Genetic Sleep Disorder Research Other*[id number] 05/13/2011 04/07/2016 Obstructive sleep apnea 01/18/2011 12/27/19 [...] Medicine Rajwinder Carter, DO [address] [facility] [place] [id number] 01/29/2020 Telemedicine Gastroenterology Melissa Omalley, SAMANTHA [address] [facility] [address] [facility] [address] [facility] [id number] 02/26/2020 Office Visit Gastroenterology Lyssa Stout CRNP 132 [place] [address] [phone] 03/11/2020 Office Visit Family Rajwinder Lopez DO [address] [facility] [place] [id number] 05/06/2020 Office Visit Gynecology Obstetrics Aman Small CN 400 [facility] [id number] 06/30/2020 Office Visit Hematology Oncology Tono Sanchez MD 200 [facility], [place] 98[address]01 09/03/2020 Imaging Radiology Health Maintenance Due Date [...] on File Type Date Recorded Patient Language Pathologist Expl 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
--- OUTSIDE RECORDS SUMMARY | 2023-05-10 22:44 | External Medical Summary | Summary of Care ---
Author Name Unknown Organization [place] [address] Care Team Providers Care Work Car Operator Name Role Phone Rajwinder Carter Primary Care Provider [phone] Reason for Visit * Reason Comments Hospital Follow-Up hem/onc discharge Encounter Details Date Type Department Care Team Description 01/23/2020 Telephone Hematology/Oncology Treatment, [place] 200 [place] [address] Tono Sanchez MD 200 [place] [address] [phone] Hospital Follow-Up (hem/onc discharge) Allergies Active Allergy Reactions Severity Noted Date Comments Penicillins Rash 02/12/2008 documented as of this encounter (statuses as of 01/23/2020) Medications Medication Sig Dispensed Refills Start Date [...] Dosing Unit 5 10/07/2019 Active nystatin (NYSTOP) 499169 UNIT/GM powder Apply topically to affected area [...] as of this encounter (statuses as of 01/23/2020) Active Problems Problem Noted Date Iron deficiency [...] as of this encounter (statuses as of 01/23/2020) Resolved Problems Problem Noted Date Resolved Date [...] pain 01/24/2012 01/17/2017 Genetic Sleep Disorder Research Other*[id number] 05/13/2011 04/07/2016 Obstructive sleep apnea 01/18/2011 12/27/19 [...] as of this encounter (statuses as of 01/23/2020) Immunizations Name Administration Dates Next Due HEP [...] Telephone Encounter - Cassie Barboza RN - 01/23/2020 8:13 AM EDT Patient admitted at [facility] from 01/15/20- 01/20/20 for UTI, melena, lactic acidosis. She had been ordered to receive venofer every other week x4 in November. Due to frequent admissions, she has only received 2 doses on venofer- on 12/05/19 and 01/02/20. On 01/20/20- hemoglobin 8.8 at [facility]. I dont see that ferritin has been checked since 11/11/19, when itwas 10.6. Reviewed with Dr Sanchez- patient to be rescheduled for venofer, but have CBCd, ferritin and iron screen drawn to see how many additional venofer doses she may need. Scheduling: please call patient to schedule Labs (CBCd, ferritin, iron screen) 503 schedule for 2 hour appt (venofer 3/4- do not need to wait for lab results) Thanks! documented in this encounter Plan of Treatment Upcoming Encounters Date Type Specialty Care Team Description 01/27/2020 Office Visit Family Medicine Rajwinder Carter DO [address] [facility] [address] 01/29/2020 Telemedicine Gastroenterology Melissa Omalley RDN [address] [place] 230 [place] [address] 02/26/2020 Office Visit Gastroenterology Lyssa Stout, ZAK 132 [facility] [place] [address] [phone] 03/11/2020 Office Visit Family Medicine Rajwinder Carter DO [address] [facility] [place] [address] 05/06/2020 Office Visit Gynecology Obstetrics Aman Small, BOO 400 [facility] [id number] 06/30/2020 Office Visit Hematology Oncology Tono Sanchez MD [address] [place] [address], [place] [address] 09/03/2020 Imaging Radiology Health Maintenance [...] Documents on File Type Date Recorded 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
--- OUTSIDE RECORDS SUMMARY | 2023-05-10 22:44 | External Medical Summary | Summary of Care ---
Author Name Unknown Organization [place] [address] Care Team Providers Care Senior Architect/Design Manager Name Role Phone Rajwinder Carter Primary Care Provider [phone] Reason for Visit * Reason Comments Hospital Follow-Up hem/onc discharge Encounter Details Date Type Department Care Team Description 01/23/2020 Telephone Hematology/Oncology Treatment, [place] 200 [place] [address] Tono Sanchez MD 200 [place] [address] [phone] Hospital Follow-Up (hem/onc discharge) Allergies Active Allergy [...] Dosing Unit 5 10/07/2019 Active nystatin (NYSTOP) 961008 UNIT/GM powder Apply topically to affected area 3 times a day. 60 g 1 10/16/2019 Active BD PEN NEEDLE MINI U/F 31G X 5 MMIndications:Type 2 diabetes mellitus with hemoglobin A1c goal of less than 7.0% ([facility]) use with basaglar at bedtime [...] dependent 04/08/2019 04/18/2019 intermediate resident 04/08/2019 05/02/2019 Preop examination 02/21/2019 04/04/2019 [...] pain 01/24/2012 01/17/2017 Genetic Sleep Disorder Research Other*[id number] 05/13/2011 04/07/2016 Obstructive sleep apnea 01/18/2011 12/27/19 [...] 01/23/2020 8:13 AM EDT Patient admitted at [facility] from 01/15/20- 01/20/20 for UTI, melena, lactic acidosis. She had been ordered to receive venofer every other week x4 in November. Due to frequent admissions, she has only received 2 doses on venofer- on 12/05/19 and 01/02/20. On 01/20/20- hemoglobin 8.8 at [facility]. I dont see that ferritin has been checked since 11/11/19, when itwas 10.6. documented in this encounter Plan of Treatment Upcoming Encounters Date Type Specialty Care Team Description 01/27/2020 Office Visit Family Rajwinder Lopez DO [address] [place] [address] [phone] 01/29/2020 Telemedicine Gastroenterology Melissa Omalley RDN [address] [place] 230 [place] [address] [phone] 02/26/2020 Office Visit Gastroenterology Lyssa Stout CRNP 132 [facility] [place] [address] [phone] 03/11/2020 Office Visit Family Rajwinder Lopez DO [address] [facility] [place] [address] [phone] 05/06/2020 Office Visit Gynecology Obstetrics Aman Small, MANAV 400 [facility] [place] [id number] 06/30/2020 Office Visit Hematology Oncology Tono Sanchez MD 200 [facility], [place] [address] [phone] 09/03/2020 Imaging Radiology Health Maintenance Due Date [...] Recorded Patient Band Machine Operator Expl 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
--- OUTSIDE RECORDS SUMMARY | 2023-05-10 22:44 | External Medical Summary ---
Author Name Unknown Address [address] [id number] Phone Organization K01:[facility] [address] [id number] Laboratory Report Ordering Provider Test Date Status JACOB CORBETT 01/27/2020 12:47:00 Final Observation Date Value Abnormality Reference (Units ) Status Ferritin 01/27/2020 20:39 46.5 13-150 (ng/mL ) Final Performing Location [place] [address] [address] [facility] [address]
--- OUTSIDE RECORDS SUMMARY | 2023-05-10 22:44 | External Medical Summary | Summary of Care ---
Author Name Unknown Organization [place] [address] Care Team Providers Care Protective Signal Installer Helper Name Role Phone Rajwinder Carter Primary Care Provider [phone] Reason for Visit * Reason Comments Hospital Follow-Up hem/onc discharge Encounter Details Date Type Department Care Team Description 01/23/2020 Telephone Hematology/Oncology Treatment, [place] 200 [place] [address] Tono Sanchez MD 200 [place] [address] [phone] Hospital Follow-Up (hem/onc discharge) Allergies Active Allergy [...] Dosing Unit 5 10/07/2019 Active nystatin (NYSTOP) 993010 UNIT/GM powder Apply topically to affected area [...] pain 01/24/2012 01/17/2017 Genetic Sleep Disorder Research Other*[id number] 05/13/2011 04/07/2016 Obstructive sleep apnea 01/18/2011 12/27/19 [...] Miscellaneous Notes * Telephone Encounter - Va Kirk OSA - 01/23/2020 1:34 PM EDT Pt scheduled for 01/26 to come over after PCP appt at [facility]. * Telephone Encounter - Cassie Barboza RN - 01/23/2020 8:13 AM EDT Patient admitted at [facility] from 01/15/20- 01/20/20 for UTI, melena, lactic acidosis. She had been ordered to receive venofer every other week x4 in November. Due to frequent admissions, she has only received 2 doses on venofer- on 12/05/19 and 01/02/20. On 01/20/20- hemoglobin 8.8 at [facility]. I dont see that ferritin has been [...] Family Medicine Rajwinder Carter, DO [address] [place] [address] [phone] 01/27/2020 Laboratory Laboratory [place], Lab Scenery 200 [place] [address] [phone] 01/27/2020 Hem/Onc Treatment Hematology Oncology [place], Chair 10 Hem Onc Scenery 200 [facility] [place], [place] [address] [phone] 01/29/2020 Telemedicine Gastroenterology Melissa Omalley RDN [address] [place] 230 [facility] [place] [address] [phone] 02/26/2020 Office Visit Gastroenterology Lyssa Stout CRNP 132 [facility] [place] [address] [phone] 03/11/2020 Office Visit Family Medicine Rajwinder Carter DO [address] [place], [place] 6567223 05/06/2020 Office Visit Gynecology Obstetrics Aman Small, BOOM [address] [facility] [place] [id number] 06/30/2020 Office Visit Hematology Oncology Tono Sanchez MD 200 [facility], [place] [address] [phone] 09/03/2020 Imaging Radiology Health Maintenance Due Date [...] Documents on File Type Date Recorded Patient Hob Grinder Expl 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
--- OUTSIDE RECORDS SUMMARY | 2023-05-10 22:44 | External Medical Summary | Summary of Care ---
Author Name Unknown Organization [place] [address] Care Team Providers Care Licensing Court Magistrate Name Role Phone Rajwinder Carter DO Primary Care Provider [phone] Encounter Details Date Type Department Care Team [...] Dosing Unit 5 10/07/2019 Active nystatin (NYSTOP) 828337 UNIT/GM powder Apply topically to affected area [...] pain 01/24/2012 01/17/2017 Genetic Sleep Disorder Research Other*[id number] 05/13/2011 04/07/2016 Obstructive sleep apnea 01/18/2011 12/27/19 [...] Team Description 01/16/2020 Hem/Onc Treatment Hematology Oncology [place], Chair 11 Hem Onc [facility] 200 [place] [address] [phone] 01/27/2020 Office Visit Family Medicine Rajwinder Carter, DO [address] [place], [place] [phone] 01/29/2020 Telemedicine Gastroenterology Melissa Omalley RDN 310 [facility] [address] [address] [phone] 02/26/2020 Office Visit Gastroenterology Lyssa Stout CRNP 132 [place] [address] [phone] 03/11/2020 Office Visit Family Medicine Rajwinder Carter, DO [address] [place], [place] 1060423 05/06/2020 Office Visit Gynecology Obstetrics Aman Small, MANAV 400 [place] [address] [phone] 06/30/2020 Office Visit Hematology Oncology Tono Sanchez MD 200 [place] [address] [phone] 09/03/2020 Imaging Radiology Health Maintenance Due Date [...] Documents on File Type Date Recorded Patient Mica Plate Layer Hand Expl 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
--- OUTSIDE RECORDS SUMMARY | 2023-05-10 22:45 | External Medical Summary | Summary of Care ---
Author Name Unknown Organization [facility] Address [place] [address] Care Team Providers Care Picture Painter Name Role Phone Rajwinder Carter Primary Care Provider [phone] Encounter Details Date Type Department Care Team Description 12/29/2019 Scan Encounter Unspecified Department <No scans attached> Allergies Active Allergy Reactions Severity Noted Date Comments Penicillins Rash 02/12/2008 documented as of this encounter (statuses as of 12/30/2019) Medications Medication Sig Dispensed Refills Start Date End Date Status CENTRUM SILVER PO TABS 1 tab daily 1 Tab 0 05/25/2012 Active vitamin c (ASCORBIC ACID) 500 MG Tablet Take 500 mg by mouth daily. 0 Active furosemide (LASIX) 20 MG Tablet Take 20 mg by mouth daily. Every other day 0 Active MetFORMIN (GLUCOPHAGE) 1000 MG TabletIndications:Ty pe 2 diabetes mellitus with hemoglobin A1c goal of less than 7.0% ([facility]) TAKE 1 TABLET BY MOUTH TWICE DAILY WITH FOOD 180 Tab 3 07/04/2019 Active fluticasone (FLONASE) 50 MCG/ACT nasal sprayIndications:Sin us congestion INSTILL 2 SPRAYS INTO EACH NOSTRIL DAILY DIRECTED 16 g 5 08/01/2019 Active atorvaSTATin (LIPITOR) 40 MG TabletIndications:Dy slipidemia, goal LDL below 70 TAKE 1 TABLET BY MOUTH EVERY NIGHT AT BEDTIME 90 Tab 0 08/12/2019 Active furosemide (LASIX) 20 MG TabletIndications:Lo calized [...] Dosing Unit 5 10/07/2019 Active nystatin (NYSTOP) 698181 UNIT/GM powder Apply topically to affected area 3 times a day. 60 g 1 10/16/2019 Active BD PEN NEEDLE MINI U/F 31G X 5 MMIndications:Type 2 diabetes mellitus with hemoglobin A1c goal of less than 7.0% ([facility]) use with basaglar at bedtime [...] per day. 100 Each 3 11/19/2019 Active cyclobenzaprine (FLEXERIL) 10 MG Tablet TAKE 1 TABLET BY MOUTH AT BEDTIME 30 Tab 0 12/04/2019 Active potassium chloride ER 10 MEQ TBCRIndications:Hypo [...] once weekly 6 mL 1 12/04/2019 Active documented as of this encounter (statuses as of 12/30/2019) Active Problems Problem Noted Date Iron deficiency [...] as of this encounter (statuses as of 12/30/2019) Resolved Problems Problem Noted Date Resolved Date [...] pain 01/24/2012 01/17/2017 Genetic Sleep Disorder Research Other*[id number] 05/13/2011 04/07/2016 Obstructive sleep apnea 01/18/2011 12/27/19 [...] as of this encounter (statuses as of 12/30/2019) Immunizations Name Administration Dates Next Due HEP [...] have Coronavirus / COVID-19? No / Unsure 12/23/2019 12:10 PM EDT documented as of this encounter Plan of Treatment Upcoming Encounters Date Type Specialty Care Team Description 01/01/2020 Office Visit Family Medicine Carter Chan MD [address] [place] [address] [phone] 01/02/2020 Hem/Onc Treatment Hematology Oncology [place], Chair 10 Hem Onc [facility] 200 [place] [address] [phone] 01/16/2020 Hem/Onc Treatment Hematology Oncology [place], Chair 11 Hem Onc Scenery 200 [place] [address] [phone] 01/27/2020 Office Visit Family Medicine Rajwinder Carter DO [address] [place] [address] [phone] 01/29/2020 Nutrition Services Gastroenterology Melissa Omalley RDN [address] [place] 230 [place] [address] [phone] 02/26/2020 Office Visit Gastroenterology Lyssa Stout CRNP 132 [place], [place] 4650[address] 05/06/2020 Office Visit Gynecology Obstetrics Aman Small CNM [address] [place] [address] 06/01/2020 Office Visit Hematology Oncology Tono Sanchez MD 200 [place] [address] [phone] 09/03/2020 Imaging Radiology Health Maintenance Due Date [...] Documents on File Type Date Recorded 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
--- OUTSIDE RECORDS SUMMARY | 2023-05-10 22:45 | External Medical Summary | Summary of Care ---
Author Name Unknown Organization [place] [address] Care Team Providers Care Salesperson Used Cars Name Role Phone Rajwinder Lara DO Primary Care Provider + [phone] Reason for Visit * Reason Comments eRx-Medication Refill Encounter Details Date Type Department Care Team Description 12/30/2019 Refill [place] [address] [place] [address] Rajwinder Lara DO [address] [place] [address] [phone] Dyslipidemia, goal LDL below 70 Allergies Active [...] day 0 Active MetFORMIN (GLUCOPHAGE) 1000 MG TabletIndications:T ype 2 diabetes mellitus with hemoglobin A1c goal of less than 7.0% ([facility]) TAKE 1 TABLET BY MOUTH TWICE DAILY WITH FOOD 180 Tab 3 9 Active fluticasone (FLONASE) 50 MCG/ACT nasal sprayIndications:Si nus congestion INSTILL 2 SPRAYS INTO EACH NOSTRIL DAILY DIRECTED 16 g 5 9 Active furosemide (LASIX) 20 MG TabletIndications:L ocalized edema,Venous stasis dermatitis of both lower extremities TAKE 1 TABLET BY MOUTH once daily NEEDED FoR EDEMA 30 Tab 4 0 Active oxybutynin (DITROPAN) 5 MG Tablet Take 1 Tab by mouth 2 times a day. 60 Tab 4 0 Active pantoprazole (PROTONIX) 20 MG TBECIndications:Gas troesophageal [...] Dosing Unit 5 0 Active nystatin (NYSTOP) 547127 UNIT/GM powder Apply topically to affected area [...] 0 Active potassium chloride ER 10 MEQ TBCRIndications:Hyp [...] ONCE DAILY 90 Tab 3 0 Active levothyroxine (LEVOXYL) 150 MCG TabletIndications:A cquired hypothyroidism TAKE 1 TABLET BY MOUTH ONCE DAILY at least 30 minutes prior to breakfast or other meds 90 Tab 1 0 Active traZODone (DESYREL) 50 MG TabletIndications:S leep disturbances Take 1 Tab by mouth at bedtime. 90 Tab 1 0 Active escitalopram (LEXAPRO) 20 MG TabletIndications:R ecurrent major depressive disorder, in partial remission (HCC) Take 1 Tab by mouth daily. 90 Tab 1 0 Active Dulaglutide (TRULICITY) 1.5 MG/0.5ML SOPNIndications:Typ e 2 diabetes mellitus with hemoglobin A1c goal of less than 7.0% (HCC) Inject 1 syringeful once weekly 6 mL 1 0 Active cyclobenzaprine (FLEXERIL) 10 MG Tablet TAKE 1 TABLET BY MOUTH AT BEDTIME 30 Tab 0 0 Active atorvaSTATin (LIPITOR) 40 MG TabletIndications:D yslipidemia, goal LDL below 70 TAKE 1 TABLET BY MOUTH EVERY NIGHT AT BEDTIME 90 Tab 1 0 Active atorvaSTATin (LIPITOR) 40 MG TabletIndications:D yslipidemia, goal LDL below 70 TAKE 1 TABLET BY MOUTH EVERY NIGHT AT BEDTIME 90 Tab 0 9 12/30/19 20 Discontinued cyclobenzaprine (FLEXERIL) 10 MG Tablet TAKE 1 TABLET BY MOUTH AT BEDTIME 30 Tab 0 0 12/30/19 20 Discontinued documented as of this encounter [...] pain 01/24/2012 01/17/2017 Genetic Sleep Disorder Research Other*[id number] 05/13/2011 04/07/2016 Obstructive sleep apnea 01/18/2011 12/27/19 [...] Telephone Encounter - Rajwinder Lara DO - 12/30/2019 5:07 PM EDT Signed Prescriptions: Disp Refills cyclobenzaprine (FLEXERIL) 10 MG Tablet 30 Tab 0 Sig: TAKE 1 TABLET BY MOUTH AT BEDTIME Authorizing Provider: RAJWINDER LARA atorvaSTATin (LIPITOR) 40 MG Tablet 90 Tab 1 Sig: TAKE 1 TABLET BY MOUTH EVERY NIGHT AT BEDTIME Authorizing Provider: RAJWINDER LARA Ordering User: JAYME STONE * Telephone Encounter - Jayme [facility] - 12/30/2019 4:08 PM EDT Pending Prescriptions: Disp Refills cyclobenzaprine (FLEXERIL) 10 MG Tablet [P*30 Tab 0 Sig: TAKE 1 TABLET BY MOUTH AT BEDTIME Signed Prescriptions: Disp Refills atorvaSTATin (LIPITOR) 40 MG Tablet 90 Tab 1 Sig: TAKE 1 TABLET BY MOUTH EVERY NIGHT AT BEDTIME Authorizing Provider: RAJWINDER LARA Ordering User: JAYME STONE ---- * Telephone Encounter - Jayme Flores [facility] - 12/30/2019 4:08 PM EDT Pending Prescriptions: Disp Refills cyclobenzaprine (FLEXERIL) 10 MG Tablet [P*30 Tab 0 Sig: TAKE 1 TABLET BY MOUTH AT BEDTIME Signed Prescriptions: Disp Refills atorvaSTATin (LIPITOR) 40 MG Tablet 90 Tab 1 Sig: TAKE 1 TABLET BY MOUTH EVERY NIGHT AT BEDTIME Authorizing Provider: RAJWINDER LARA Ordering User: JAYME STONE Last Office/Telemedicine Visit: 11/25/2019 Next Office Visit: 01/27/2020 Scheduled Provider(s): Rajwinder Lara, DO If no future appointments scheduled, and last appointment is greater than a year ago, please schedule patient for a follow-up appointment Last date the medication was ordered: 12/04/19 Pharmacy: [facility] [address] Is this request for a controlled [...] Family Medicine Carter Chan MD [address] [place] [address] [phone] 01/02/2020 Hem/Onc Treatment Hematology [place], Chair [address] [place] [address] [phone] 01/16/2020 Hem/Onc Treatment Hematology [place], Chair [address] Hem Onc Scenery 200 [place] [address] [phone] 01/27/2020 Office Visit Family Medicine Rajwinder Lara DO [address], [place] [id number] 01/29/2020 Nutrition Services Gastroenterology Melissa Omalley RDN [address] [place] [address] [place] [address] [phone] 02/26/2020 Office Visit Gastroenterology Lyssa Stout CRNP [address] [facility] [place] [address] [phone] 05/06/2020 Office Visit Gynecology Obstetrics Aman Small CNM [address] [place] [id number] 06/01/2020 Office Visit Hematology Oncology Tono Sanchez MD [address] [facility] [place] [address] [phone] 09/03/2020 Imaging Radiology Health Maintenance Due Date [...] Documents on File Type Date Recorded 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
--- OUTSIDE RECORDS SUMMARY | 2023-05-10 22:45 | External Medical Summary | Summary of Care ---
Author Name Unknown Organization [facility] [place] [address] Care Team Providers Care Build Engineer Name Role Phone Rajwinder Carter DO Primary Care Provider [phone] Reason for Visit * Reason Comments Advice Returning Call Encounter Details Date Type Department Care Team Description 01/03/2020 Telephone [facility] [address] [place] [address] Rajwinder Carter DO [address] [place] [address] [phone] Advice; Returning Call Allergies Active Allergy Reactions Severity Noted Date Comments Penicillins Rash 02/12/2008 documented as of this encounter (statuses as of 01/08/2020) Medications Medication Sig Dispensed Refills Start Date [...] Dosing Unit 5 10/07/2019 Active nystatin (NYSTOP) 207287 UNIT/GM powder Apply topically to affected area [...] AT BEDTIME 90 Tab 1 12/30/2019 Active documented as of this encounter (statuses as of 01/08/2020) Active Problems Problem Noted Date Iron deficiency [...] as of this encounter (statuses as of 01/08/2020) Resolved Problems Problem Noted Date Resolved Date [...] pain 01/24/2012 01/17/2017 Genetic Sleep Disorder Research Other*[id number] 05/13/2011 04/07/2016 Obstructive sleep apnea 01/18/2011 12/27/19 [...] as of this encounter (statuses as of 01/08/2020) Immunizations Name Administration Dates Next Due HEP [...] have Coronavirus / COVID-19? Unable to assess 01/08/2020 1:18 PM EDT documented as of this encounter Miscellaneous Notes * Telephone Encounter - Rajwinder Carter DO - 01/08/2020 2:39 PM EDT She has an appointment tomorrow. We will discuss then. * Telephone Encounter - Jovana Lambert RN - 01/08/2020 2:21 PM EDT She states she is in cefdnir from ED For UTI 12/31/2019 C/o Burning on urination Urine is orange Has 2 pills left to take Denies Chille nausea Always has back pain Asking for advise on burning ED record in scanning * Telephone Encounter - Jovana Lambert RN - 01/08/2020 2:10 PM EDT The patient is aware, and verbalizes an understanding. * Telephone Encounter - Rajwinder Carter DO - 01/08/2020 10:03 AM EDT Pt really should keep her local [facility] doctors here. If she chooses a different hospital for [facility], that is up to her. She should keep in mine, an ambulance will not drive her to [place]. * Telephone Encounter - Ludy Jara LPN - 01/07/2020 11:40 AM EDT From what I see in chart would be hematology/oncology, gastro, * Telephone Encounter - Quyen Starks OSA - 01/07/2020 11:17 AM EDT Pt stating she is changing all her drs to down in [place], she needs referrals to change all of her other drs. * Telephone Encounter - Ludy Jara LPN - 01/06/2020 11:27 AM EDT No Mailbox set up, not able to leave message Need to know what appt she is talking about what referral she would want * Telephone Encounter - Janett Triana OSA - 01/06/2020 10:50 AM EDT Pt is calling in to see about getting all of her appointments moved to [place]. States that she was at [facility] and felt she did not receive the care/attention that she should have and wants to only keep for a local provider. Pt would like to have call back in regards to who she can r eschedule with in [place] and get appointments switched and unsure if she should wait until her next appointment to have reschedules done. Please advise. Thanks * Telephone Encounter - Kiesha Schmitt LPN - 01/03/2020 4:10 PM EDT Spoke to pt Pt went to the [facility] ER on 12/29/2019 Pt was not happy with treatment, claims she laid in a bed for a long time before being seen. Pt states if she goes to an ER again would prefer to go to [place], advised that is her choice to make. Pt asking if you would still be her doctor, wants to transfer other care to [place]. Advised she could talk with you about this at next visit. Monday night went to ER for bleeding and found she had a bladder infection. Pt states she will urinate and still have the urge to go more. Pt states she is taking medication prescribed by ER Pt also states she has a lump "down there" between her legs, she can feel it but not see it and spouse can see it. Wants to know who to see for this * Telephone Encounter - Rajwinder Carter DO - 01/03/2020 12:31 PM EDT Please call pt and see what the issue is. * Telephone Encounter - Alia Wong, THAD - 01/03/2020 11:11 AM EDT Pt called back asking that Dr. Manriquez call her on her cell phone at [phone]. * Telephone Encounter - Kenya Vaz, THAD - 01/03/2020 10:20 AM EDT Pt is asking for Dr. Carter to please call her back, asked her for the reason why and she would only tell me that she has a question for Dr. Carter, she can be reached at [phone] documented in this encounter Plan of Treatment Upcoming Encounters Date Type Specialty Care Team Description 01/09/2020 Office Visit Family [facility] [address] [facility] [address] 01/16/2020 Hem/Onc Treatment Hematology [place], Chair [address] Hem Onc Sc[address] [facility] [place] [address] [phone] 01/27/2020 Office Visit Family [facility]inder Lopez [facility] [address] [facility] [id number] 01/29/2020 Nutrition Services Gastroenterology Melissa Omalley RDN [address] [facility] [address] [place] [address] [place] [address] 02/26/2020 Office Visit Gastroenterology Lyssa Stout CRNP [address] [facility] [place] [address] [phone] 05/06/2020 Office Visit Gynecology Obstetrics Aman Small, MANAV [address] [place] [address] [phone] 06/01/2020 Office Visit Hematology Oncology Tono Sanchez MD [address] [place] [address], [place] [address] 09/03/2020 Imaging Radiology Health Maintenance Due [...] on File Type Date Recorded Patient Registered Diet Technician Expl 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
--- OUTSIDE RECORDS SUMMARY | 2023-05-10 22:45 | External Medical Summary | Summary of Care ---
Author Name Unknown Organization [facility] Address [place] [address] Care Team Providers Care Body Line Finisher Name Role Phone Rajwinder Carter DO Primary Care Provider [phone] Encounter Details Date Type Department Care Team Description 01/01/2020 Telemedicine Family [facility] [address] [facility] [place] [address] Rajwinder Carter DO [address] [facility] [place] [id number] Pancytopenia (HCC)*; Urinary tract infection with hematuria, site unspecified Allergies Active Allergy Reactions Severity Noted Date Comments Penicillins Rash 02/12/2008 documented as of this encounter (statuses as of 01/01/2020) Medications Medication Sig Dispensed Refills Start Date [...] Dosing Unit 5 10/07/2019 Active nystatin (NYSTOP) 864321 UNIT/GM powder Apply topically to affected area 3 times a day. 60 g 1 10/16/2019 Active BD PEN NEEDLE MINI U/F 31G X 5 MMIndications:Type 2 diabetes mellitus with hemoglobin A1c goal of less than 7.0% ([facility]) use with basaglar at bedtime 100 [...] as of this encounter (statuses as of 01/01/2020) Active Problems Problem Noted Date Iron deficiency [...] as of this encounter (statuses as of 01/01/2020) Resolved Problems Problem Noted Date Resolved Date [...] pain 01/24/2012 01/17/2017 Genetic Sleep Disorder Research Other*[id number] 05/13/2011 04/07/2016 Obstructive sleep apnea 01/18/2011 12/27/19 [...] as of this encounter (statuses as of 01/01/2020) Immunizations Name Administration Dates Next Due HEP [...] have Coronavirus / COVID-19? Unable to assess 01/01/2020 8:26 AM EDT documented as of this encounter Progress Notes * Rajwinder Carter DO - 01/01/2020 3:31 PM EDT After connecting to the patient via telephone, the patient was identified by name and date of . Patient was then informed that this was a telephone call only visit. The patient agreed to participate. Visit Disposition: Routine follow-up Total call duration was 8 minutes 1 second. Pt notes that she is feeling much better. She was on macrobid but notes that she was called to switch the antibiotic. She states that she will be going to get it this afternoon. She notes no further burning. She had a fever last night but it broke after that. She is eating and drinking well. She ismoving her bowels normally. She continues to have a caregiver come into the home. She will have heriron infusion tomorrow. (D61.818) Pancytopenia (HCC) (primary encounter diagnosis) Plan: pt will continue to follow with oncology. She will have her venofer infusion tomorrow. (N39.0, R31.9) Urinary tract infection with hematuria, site unspecified Plan: Pt strongly advised to go pickling solution maker new antibiotic and start JONO. Push fluids. Call office if symptoms worsen or fail to improve. Reviewed that there is always somebody health concierge and that we are seeing pt's at [facility]. documented in this encounter Plan of Treatment Upcoming Encounters Date Type Specialty Care Team Description 01/02/2020 Hem/Onc Treatment Hematology [place], Chair 10 Hem Onc [address]ery [address] [place] [address] [phone] 01/16/2020 Hem/Onc Treatment Hematology Oncology [place], Chair 11 Hem Onc [facility] [address] [place] [address] [phone] 01/27/2020 Office Visit Family Medicine Rajwinder Carter DO [address] [facility], [place] [address] [phone] 01/29/2020 Nutrition Services Gastroenterology Melissa Omalley, SAMANTHA [address] [place] [address] [facility] [place] [address] [phone] 02/26/2020 Office Visit Gastroenterology Lyssa Stout CRNP [address] [facility] [address] [phone] 05/06/2020 Office Visit Gynecology Obstetrics Aman Small, MANAV [address] [facility] [place] [id number] 06/01/2020 Office Visit Hematology Oncology Tono Sanchez MD 200 [facility], [place] [address] [phone] 09/03/2020 Imaging Radiology Health Maintenance Due Date [...] Diagnoses Diagnosis Pancytopenia (HCC)- Primary Other pancytopenia Urinary tract infection with hematuria, site unspecified documented in this encounter Advance Directives Documents on File Type Date Recorded Patient Manufacturer'S Representative Expl 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
--- OUTSIDE RECORDS SUMMARY | 2023-05-10 22:45 | External Medical Summary | Summary of Care ---
Author Name Unknown Organization [facility] Address [place] [address] Care Team Providers Care Collections Director Name Role Phone Rajwinder Carter DO Primary Care Provider [phone] Reason for Visit * Reason Comments Emergency Department Follow-Up Encounter Details Date Type Department Care Team Description 01/08/2020 Telephone [facility] [address] [place], [place] [id number] Rajwinder Carter DO [address] [place], [place] [id number] Emergency Department Follow-Up Allergies Active Allergy Reactions [...] Dosing Unit 5 10/07/2019 Active nystatin (NYSTOP) 834126 UNIT/GM powder Apply topically to affected area [...] pain 01/24/2012 01/17/2017 Genetic Sleep Disorder Research Other*[id number] 05/13/2011 04/07/2016 Obstructive sleep apnea 01/18/2011 12/27/19 [...] Coronavirus / COVID-19? Unable to assess 01/08/2020 1:07 PM EDT documented as of this encounter Miscellaneous Notes * Telephone Encounter - Carrie Saini OSA - 01/08/2020 1:10 PM EDT Scheduled * Telephone Encounter - Ludy Jara LPN - 01/08/2020 12:30 PM EDT Please schedule * Telephone Encounter - Tila Joyce OSA - 01/08/2020 10:56 AM EDT See Call Details documented in this encounter Plan of Treatment Upcoming Encounters Date Type Specialty Care Team Description 01/09/2020 Office Visit Family Rajwinder Lopez, DO [address] [place] [id number] 01/16/2020 Hem/Onc Treatment Hematology [place], Chair 11 Hem Onc Scenery [address] [facility] [address] [phone] 01/27/2020 Office Visit Rajwinder See DO [address] [place] [id number] 01/29/2020 Nutrition Services Gastroenterology Melissa Omalley RDN [address] [place] [address] [place] [address] [phone] 02/26/2020 Office Visit Gastroenterology Lyssa Stout, ZAK [address] [facility] [place] [address] [phone] 05/06/2020 Office Visit Gynecology Obstetrics Aman Small, MANAV [address] [facility] [place] [place] [address] [phone] 06/01/2020 Office Visit Hematology Oncology Tono Sanchez MD 200 [place] [address] [phone] 09/03/2020 Imaging Radiology Health Maintenance Due Date [...] on File Type Date Recorded Patient Oil Bay Technician Expl 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
--- OUTSIDE RECORDS SUMMARY | 2023-05-10 22:45 | External Medical Summary | Summary of Care ---
Author Name Unknown Organization [place] [address] Care Team Providers Care Nail Making Machine Setter Name Role Phone Rajwinder Carter Primary Care Provider [phone] Reason for Visit * Reason Comments Encounter Created in Error Encounter Details Date Type Department Care Team Description 01/01/2020 Telephone Hematology/Oncology Treatment, [place] [address] [place] [address] Tono Sanchez MD [address] [place] [address] [phone] Encounter Created in Error Allergies Active Allergy [...] than 7.0% ([facility]) TAKE 1 TABLET BY MOUTH TWICE [...] Dosing Unit 5 10/07/2019 Active nystatin (NYSTOP) 414278 UNIT/GM powder Apply topically to affected area [...] pain 01/24/2012 01/17/2017 Genetic Sleep Disorder Research Other*[id number] 05/13/2011 04/07/2016 Obstructive sleep apnea 01/18/2011 12/27/19 [...] Team Description 01/02/2020 Hem/Onc Treatment Hematology Oncology [place], Chair [address] Hem [address] [address] [phone] 01/16/2020 Hem/Onc Treatment Hematology Oncology [place], Chair [address] Hem [address] [address] [phone] 01/27/2020 Office Visit Family Medicine Rajwinder Carter DO [address] [place] [address] 01/29/2020 Nutrition Services Gastroenterology Melissa Omalley RDN [address] [place] [address] [place] [id number] 02/26/2020 Office Visit Gastroenterology [facility]sa Stout [facility] [address] [facility] [address] 05/06/2020 Office Visit Gynecology Obstetrics Aman Small CNM [address] [facility] [place] [id number] 06/01/2020 Office Visit Hematology Oncology Tono Sanchez MD 200 [facility] [address] [phone] 09/03/2020 Imaging Radiology Health Maintenance Due Date [...] on File Type Date Recorded Patient Senior Quality Assurance 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
--- OUTSIDE RECORDS SUMMARY | 2023-05-10 22:45 | External Medical Summary | Summary of Care ---
Author Name Unknown Organization [facility] Address [facility] [place] [address] Care Team Providers Care Housetrailer Servicer Name Role Phone ArabellaRajwinder thacker Belen MORENO Primary Care Provider [phone] Reason for Visit * Reason Comments Chemotherapy Venofer 3/ Encounter Details Date Type Department Care Team Description 01/02/2020 Hem/Onc Treatment Hematology/Oncology Treatment, [place] [address] [place] [address] Maryellen, Chair 10 Hem Onc Scenery [address] [place] [address] [phone] Iron deficiency anemia due to chronic blood loss*; Splenomegaly Allergies Active Allergy Reactions Severity Noted Date Comments Penicillins Rash 02/12/2008 documented as of this encounter (statuses as of 01/02/2020) Medications Medication Sig Dispensed Refills Start Date [...] less than 7.0% ([facility]) TAKE 1 TABLET BY MOUTH TWICE DAILY [...] Dosing Unit 5 10/07/2019 Active nystatin (NYSTOP) 725348 UNIT/GM powder Apply topically to affected area [...] as of this encounter (statuses as of 01/02/2020) Active Problems Problem Noted Date Iron deficiency [...] as of this encounter (statuses as of 01/02/2020) Resolved Problems Problem Noted Date Resolved Date [...] pain 01/24/2012 01/17/2017 Genetic Sleep Disorder Research Other*[id number] 05/13/2011 04/07/2016 Obstructive sleep apnea 01/18/2011 12/27/19 [...] as of this encounter (statuses as of 01/02/2020) Immunizations Name Administration Dates Next Due HEP [...] have Coronavirus / COVID-19? No / Unsure 01/02/2020 11:39 AM EDT documented as of this encounter Last Filed Vital Signs Vital Sign Reading Time Taken Comments Blood Pressure 128/74 01/02/2020 12:12 PM EDT Pulse 104 01/02/2020 12:12 PM EDT Temperature 36.7 C (98.1 F) 01/02/2020 12:12 PM E DT Respiratory Rate 20 01/02/2020 12:12 PM EDT Oxygen Saturation - - Inhaled Oxygen Concentration - - Weight - - Height - - Body Mass Index - - documented in this encounter Nursing Notes * Irene Snell RN - 01/02/2020 1:59 PM EDT Goals: Pt will remain free from injury Possible barriers to meeting goals: Large body habitus, non-ambulatory Stability of the patient: Moderately stable - low risk of patient condition declining or worsening Summary regarding today's goals: Met: Pt remains free from injury at discharge No nursing coverage required. * Irene Snell RN - 01/02/2020 12:13 PM EDT Chair 8 Pt masked Pt presents today for Venofer. She arrives via motorized scooter. She has no complaints. Safety and Risk for Injury Patient will remain free from injury. Ensure appropriate safety devices are available. Provide and maintain safe environment. documented in this encounter Plan of Treatment Upcoming Encounters Date Type Specialty Care Team Description 01/16/2020 Hem/Onc Treatment Hematology [place], Chair 11 Hem Onc Scenery [address] [place], [place] [address] [phone] 01/27/2020 Office Visit Family Medicine Rajwinder Carter DO [address] [facility] [place] [id number] 01/29/2020 Nutrition Services Gastroenterology Melissa Omalley, [place] [address] [place] [id number] 02/26/2020 Office Visit [facility]enterology [facility]out [facility] [address] [facility] [address] [phone] 05/06/2020 Office Visit Gynecology Obstetrics Aman Small, MANAV 400 [facility] [place] [id number] 06/01/2020 Office Visit Hematology Oncology Tono Sanchez MD 200 [facility], [place] [address] 09/03/2020 Imaging Radiology Health Maintenance Due Date [...] ONCE PRN Other, Hypersensitivity Reaction, Starting [place] 01/02/20 at 1209, Until Mon01/03/20 at 1208, For 24 hours EPINEPHrine 1 MG/ML inj 0.3 mg 0.3 mg, Intramuscular, ONCE PRN Other, Hypersensitivity Reaction or Anaphylaxis, Starting [place] 01/02/20 at 1209, Until Mon01/03/20 at 1208, For 24 hours hEParin Lock FLUSH 100 UNIT/ML inj 500 Units 500 Units (5 mL), IV Lock, PRN Other, IV Flush, Starting [place] 01/02/20 at 1209, Until Mon01/03/20 at 1208, For 24 hours, Do not flush if lock, PICC, or central line not in place; IV infusing or unable to flush., hydrocortisone na succinate pf (SOLU-CORTEF) inj 100 mg 100 mg, IV Push, ONCE PRN Other, Hypersensitivity Reaction, Starting [place] 01/02/20 at 1209, Until Mon01/03/20 at 1208, For 24 hours NSS infusion 500 mL, Intravenous, at 50 mL/hr, CONTINUOUS, Starting [place] 01/02/20 at 1315, Until [place] 01/02/20 at 2314 Start Infusion 01/02/2020 12:10 PM EDT 500 mL 50 mL/hr sodium chloride 0.9% flush/inj 10 mL 10 mL, IV Push, PRN Other, IV Flush, Starting [place] 01/02/20 at 1209, Until Mon01/03/20 at 1208, For 24 hours, Do not flush if lock, PICC, or central line not in place; IV infusing or unable to flush., Inactive Administered Medications - up to 3 most recent administrations Medication Order MAR Action Action Date Dose Rate Site iron sucrose (VENOFER) 300 mg in NSS 250 mL ivpb 300 mg, IV Piggyback, ONCE, 1 dose, [place] 01/02/20 at 1345, Administer over 90 Minutes Start Infusion 01/02/2020 12:10 PM EDT 300 mg 166.67 mL/hr documented in this encounter Advance Directives Documents on File Type Date Recorded Patient Location Manager Expl 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
--- OUTSIDE RECORDS SUMMARY | 2023-05-10 22:45 | External Medical Summary | Summary of Care ---
Author Name Unknown Organization [place] [address] Care Team Providers Care Insurance Verification Representative Name Role Phone JohnbrianRajwinder thacker Primary Care Provider [phone] Reason for Visit * Reason Comments eRx-Medication Refill Encounter Details Date Type Department Care Team Description 01/06/2020 Refill [facility] [address] [place], [place] [id number] Brianne Pal PA-C [address] [place], [place] [id number] Type 2 diabetes mellitus with hemoglobin A1c goal of less than 7.0% (HCC) Allergies Active Allergy Reactions Severity Noted Date Comments Penicillins Rash 02/12/2008 documented as of this encounter (statuses as of 01/06/2020) Medications Medication Sig Dispensed Refills Start Date [...] Dosing Unit 5 0 Active nystatin (NYSTOP) 722314 UNIT/GM powder Apply topically to affected area [...] 1 0 Active MetFORMIN (GLUCOPHAGE) 1000 MG TabletIndications:T ype 2 diabetes mellitus with hemoglobin A1c goal of less than 7.0% (HCC) TAKE 1 TABLET BY MOUTH TWICE DAILY 180 Tab 1 0 Active MetFORMIN (GLUCOPHAGE) 1000 MG TabletIndications:T ype 2 diabetes mellitus with hemoglobin A1c goal of less than 7.0% (HCC) TAKE 1 TABLET BY MOUTH TWICE DAILY WITH FOOD 180 Tab 3 9 01/06/20 20 Discontinued documented as of this encounter (statuses as of 01/06/2020) Active Problems Problem Noted Date Iron deficiency [...] as of this encounter (statuses as of 01/06/2020) Resolved Problems Problem Noted Date Resolved Date [...] pain 01/24/2012 01/17/2017 Genetic Sleep Disorder Research Other*[id number] 05/13/2011 04/07/2016 Obstructive sleep apnea 01/18/2011 12/27/19 [...] as of this encounter (statuses as of 01/06/2020) Immunizations Name Administration Dates Next Due HEP [...] Notes * Telephone Encounter - Jean Marie Perera RPh - 01/06/2020 3:52 PM EDT Signed Prescriptions: Disp Refills MetFORMIN (GLUCOPHAGE) 1000 MG Tablet 180 Tab1 Sig: TAKE 1 TABLET BY MOUTH TWICE DAILY Authorizing Provider: BRIANNE PAL User: JEAN MARIE PERERA-- documented in this encounter Plan of Treatment Upcoming Encounters Date Type Specialty Care Team Description 01/16/2020 Hem/Onc Treatment Hematology [place]cology [place], Chair 11 Hem Onc Scenery [address] [place], [place] [id number] 01/27/2020 Office Visit Family Medicine [facility]winder Carter [facility] [address] [facility] [address] [phone] 01/29/2020 Nutrition Services Gastroenterology Melissa Omalley, [place] [address] [place] [id number] 02/26/2020 Office Visit [facility]enterology [facility] [address] [facility] [address] [phone] 05/06/2020 Office Visit Gynecology Obstetrics Aman Small, CNM [address] [place] [id number] 06/01/2020 Office Visit Hematology Oncology Tono Sanchez MD 200 [place] [address] [phone] 09/03/2020 Imaging Radiology Health Maintenance Due Date [...] on File Type Date Recorded 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
--- OUTSIDE RECORDS SUMMARY | 2023-05-10 22:45 | External Medical Summary | Summary of Care ---
Author Name Unknown Organization [facility] Address [place] [address] Care Team Providers Care Cocoa Roaster Name Role Phone Rajwinder Carter Primary Care Provider [phone] Encounter Details Date Type Department Care Team Description 12/23/2019 Scan Encounter Unspecified Department <No scans attached> Allergies Active Allergy Reactions Severity Noted Date Comments Penicillins Rash 02/12/2008 documented as of this encounter (statuses as of 12/27/2019) Medications Medication Sig Dispensed Refills Start Date [...] less than 7.0% ([facility]) TAKE 1 TABLET BY MOUTH TWICE DAILY [...] Dosing Unit 5 10/07/2019 Active nystatin (NYSTOP) 422074 UNIT/GM powder Apply topically to affected area 3 times a day. 60 g 1 10/16/2019 Active BD PEN NEEDLE MINI U/F 31G X 5 MMIndications:Type 2 diabetes mellitus with hemoglobin A1c goal of less than 7.0% ([facility]) use with basaglar at bedtime 100 Each [...] as of this encounter (statuses as of 12/27/2019) Active Problems Problem Noted Date Iron deficiency [...] as of this encounter (statuses as of 12/27/2019) Resolved Problems Problem Noted Date Resolved Date [...] pain 01/24/2012 01/17/2017 Genetic Sleep Disorder Research Other*[id number] 05/13/2011 04/07/2016 Obstructive sleep apnea 01/18/2011 12/27/19 [...] as of this encounter (statuses as of 12/27/2019) Immunizations Name Administration Dates Next Due HEP [...] Family Medicine Carter Chan MD [address] [place] [address] [phone] 01/02/2020 Hem/Onc Treatment Hematology Oncology [place], Chair 10 Hem Onc [facility] 200 [place] [address] [phone] 01/16/2020 Hem/Onc Treatment Hematology Oncology [place], Chair 11 Hem Onc Scenery 200 [place] [address] [phone] 01/27/2020 Office Visit Family Medicine Rajwinder Carter DO [address] [place] [address] [phone] 01/29/2020 Nutrition Services Gastroenterology Melissa Omalley RDN [address] [place] [address] [place] [address] [phone] 02/26/2020 Office Visit Gastroenterology Lyssa Stout CRNP [address] [place], [place] [address] 05/06/2020 Office Visit Gynecology Obstetrics Aman Small CNM [address] [place] [id number] 06/01/2020 Office Visit Hematology Oncology Tono Sanchez MD 200 [place] [address] [phone] 09/03/2020 Imaging Radiology Health Maintenance Due Date [...] on File Type Date Recorded Patient Rn Anesthetist Expl 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
--- OUTSIDE RECORDS SUMMARY | 2023-05-10 22:45 | External Medical Summary | Summary of Care ---
Author Name Unknown Organization [place] [address] Care Team Providers Care Poultry Hatchery Manager Name Role Phone Rajwinder Carter Primary Care Provider [phone] Reason for Visit * Reason Comments Other Encounter Details Date Type Department Care Team Description 01/01/2020 Telephone Hematology/Oncology [facility] 200 [place] [address] Tono Sanchez MD [address] [place], [place] [address] Other Allergies Active Allergy Reactions Severity Noted [...] 7.0% ([facility]) TAKE 1 TABLET BY MOUTH TWICE DAILY [...] Dosing Unit 5 10/07/2019 Active nystatin (NYSTOP) 831211 UNIT/GM powder Apply topically to affected area [...] pain 01/24/2012 01/17/2017 Genetic Sleep Disorder Research Other*[id number] 05/13/2011 04/07/2016 Obstructive sleep apnea 01/18/2011 12/27/19 [...] Telephone Encounter - Janett Triana OSA - 01/01/2020 9:26 AM EDT 1. Have you had any contact with individuals who have flu like symptoms, confirmed flu or coronavirus in the last 14 days)? Answer: NO 2. Do you have any Respiratory symptoms? (A new cough or shortness of breath) Answers NO 3. Do you have a fever greater than or equal to 100.4, Answer- NO Patient made aware of masking/visitor guidelines documented in this encounter Plan of Treatment Upcoming Encounters Date Type Specialty Care Team Description 01/01/2020 Telemedicine Family Medicine Rajwinedr Carter DO [address] [facility] [place] [address] [phone] Arrived 01/02/2020 Hem/Onc Treatment Hematology Oncology [place], Chair 10 Hem Onc Scenery [address] [place] [address] [phone] 01/16/2020 Hem/Onc Treatment Hematology Oncology [place], Chair 11 Hem Onc Scenery [address] [place] [address] [phone] 01/27/2020 Office Visit Family Rajwinder Lopez DO [address] [place] [address] [phone] 01/29/2020 Nutrition Services Gastroenterology Melissa Omalley, [place] [address] [place] [address] [place] [address] [phone] 02/26/2020 Office Visit Gastroenterology Lyssa Stout CRNP 132 [facility] [place] [address] [phone] 05/06/2020 Office Visit Gynecology Obstetrics Aman Small, BOOM 400 [facility] [place] [id number] 06/01/2020 Office Visit Hematology Oncology Tono Sanchez MD 200 [place] [address] [phone] 09/03/2020 Imaging Radiology Health Maintenance Due Date [...] on File Type Date Recorded Patient Team Driver Expl 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
--- OUTSIDE RECORDS SUMMARY | 2023-05-10 22:46 | External Medical Summary | Summary of Care ---
Author Name Unknown Organization [facility] Address [place] [address] Care Team Providers Care Purchase Order Checker Name Role Phone Rajwinder Carter Primary Care Provider Encounter Details Date Type Department Care Team Description 12/23/2019 Scan Encounter Unspecified Department <No scans attached> Allergies Active Allergy Reactions Severity Noted Date Comments Penicillins Rash 02/12/2008 documented as of this encounter (statuses as of 12/25/2019) Medications Medication Sig Dispensed Refills Start Date [...] less than 7.0% ([facility]) TAKE 1 TABLET BY MOUTH TWICE [...] Dosing Unit 5 10/07/2019 Active nystatin (NYSTOP) 218614 UNIT/GM powder Apply topically to affected area 3 times a day. 60 g 1 10/16/2019 Active BD PEN NEEDLE MINI U/F 31G X 5 MMIndications:Type 2 diabetes mellitus with hemoglobin A1c goal of less than 7.0% ([facility]) use with basaglar at bedtime 100 [...] as of this encounter (statuses as of 12/25/2019) Active Problems Problem Noted Date Iron deficiency [...] as of this encounter (statuses as of 12/25/2019) Resolved Problems Problem Noted Date Resolved Date [...] pain 01/24/2012 01/17/2017 Genetic Sleep Disorder Research Other*[id number] 05/13/2011 04/07/2016 Obstructive sleep apnea 01/18/2011 12/27/19 [...] as of this encounter (statuses as of 12/25/2019) Immunizations Name Administration Dates Next Due HEP [...] Team Description 01/02/2020 Hem/Onc Treatment Hematology Oncology [place], Chair 10 Hem Onc Scenery 200 [facility] [address] [phone] 01/16/2020 Hem/Onc Treatment Hematology Oncology [place], Chair 11 Hem Onc Scenery 200 [facility] [address] [phone] 01/27/2020 Office Visit Family Medicine Rajwinder Carter DO [address] [place] [address] [phone] 01/29/2020 Nutrition Services Gastroenterology Melissa Omalley RDN [address] [place] [address] [phone] 02/26/2020 Office Visit Gastroenterology Lyssa Stout CRNP [address] [place] [address] [phone] 05/06/2020 Office Visit Gynecology Obstetrics Aman Small CNM 400 [place], [place] [address] 06/01/2020 Office Visit Hematology Oncology Tono Sanchez MD 200 [place] [address] [phone] 09/03/2020 Imaging Radiology Health Maintenance Due Date [...]
--- OUTSIDE RECORDS SUMMARY | 2023-05-10 22:46 | External Medical Summary | Summary of Care ---
Author Name Unknown Organization [place] [address] Care Team Providers Care Kayaking Instructor Name Role Phone Rajwinder Carter Primary Care Provider [phone] Reason for Visit * Reason Comments Appointment COVID PRESCREENING Information Patient admitted to [facility] Encounter Details Date Type Department Care Team Description 12/24/2019 Telephone Hematology/Oncology [facility] 200 [place] [address] Tono Sanchez MD [address] [place] [address] [phone] Appointment (COVID PRESCREENING); Informat... Allergies Active Allergy Reactions Severity Noted Date Comments Penicillins Rash 02/12/2008 documented as of this encounter (statuses as of 12/24/2019) Medications Medication Sig Dispensed Refills Start Date [...] of less than 7.0% ([facility]) TAKE 1 TABLET BY MOUTH [...] Dosing Unit 5 10/07/2019 Active nystatin (NYSTOP) 822738 UNIT/GM powder Apply topically to affected area [...] as of this encounter (statuses as of 12/24/2019) Active Problems Problem Noted Date Iron deficiency [...] as of this encounter (statuses as of 12/24/2019) Resolved Problems Problem Noted Date Resolved Date [...] pain 01/24/2012 01/17/2017 Genetic Sleep Disorder Research Other*[id number] 05/13/2011 04/07/2016 Obstructive sleep apnea 01/18/2011 12/27/19 [...] as of this encounter (statuses as of 12/24/2019) Immunizations Name Administration Dates Next Due HEP [...] Telephone Encounter - Janett Triana OSA - 12/24/2019 10:30 AM EDT appt for tomorrow is canceled per nursing. * Telephone Encounter - Lilian Jara CMA - 12/24/2019 10:00 AM EDT Called and her Syed answered stated Shaina was admitted to the hospital. documented in this encounter Plan of Treatment Upcoming Encounters Date Type Specialty Care Team Description 01/02/2020 Hem/Onc Treatment Hematology [place]cology [place], Chair 10 Hem Onc Scenery [address] [place] [address] [phone] 01/16/2020 Hem/Onc Treatment Hematology [place]cology [place], Chair 11 Hem Onc Scenery [address] [place] [address] [phone] 01/27/2020 Office Visit Family Medicine Rajwinder Carter DO [address] [place] [address] 01/29/2020 Nutrition Services Gastroenterology Melissa Omalley RDN [address] [place] [address] [place] [id number] 02/26/2020 Office Visit Gastroenterology Lyssa Stout CRNP [address] [facility] [place] [address] [phone] 05/06/2020 Office Visit Gynecology Obstetrics Aman Small CNM [address] [place] [address] [phone] 06/01/2020 Office Visit Hematology Oncology Tono Sanchez MD 200 [place] [address] 09/03/2020 Imaging Radiology Health [...] on File Type Date Recorded Patient Product Lister Expl 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
--- OUTSIDE RECORDS SUMMARY | 2023-05-10 22:46 | External Medical Summary | Summary of Care ---
Author Name Unknown Organization [facility] Address [place] [address] Care Team Providers Care Shale Planer Operator Helper Name Role Phone Rajwinder Carter Primary Care Provider [phone] Encounter Details Date Type Department Care Team Description 12/25/2019 Scan Encounter Unspecified Department <No scans attached> Allergies Active Allergy Reactions Severity Noted Date Comments Penicillins Rash 02/12/2008 documented as of this encounter (statuses as of 12/26/2019) Medications Medication Sig Dispensed Refills Start Date [...] less than 7.0% ([facility]) TAKE 1 TABLET [...] Dosing Unit 5 10/07/2019 Active nystatin (NYSTOP) 227241 UNIT/GM powder Apply topically to affected area 3 times a day. 60 g 1 10/16/2019 Active BD PEN NEEDLE MINI U/F 31G X 5 MMIndications:Type 2 diabetes mellitus with hemoglobin A1c goal of less than 7.0% ([facility]) use with basaglar at bedtime 100 [...] as of this encounter (statuses as of 12/26/2019) Active Problems Problem Noted Date Iron deficiency [...] as of this encounter (statuses as of 12/26/2019) Resolved Problems Problem Noted Date Resolved Date [...] pain 01/24/2012 01/17/2017 Genetic Sleep Disorder Research Other*[id number] 05/13/2011 04/07/2016 Obstructive sleep apnea 01/18/2011 12/27/19 [...] as of this encounter (statuses as of 12/26/2019) Immunizations Name Administration Dates Next Due HEP [...] Family Medicine Carter Chan MD [address] [place] [address] [phone] 01/02/2020 Hem/Onc Treatment Hematology Oncology [place], Chair 10 Hem Onc [facility] 200 [place] [address] [phone] 01/16/2020 Hem/Onc Treatment Hematology Oncology [place], Chair 11 Hem Onc Scenery 200 [facility] [address] [phone] 01/27/2020 Office Visit Family Medicine Rajwinder Carter DO [address] [place] [address] [phone] 01/29/2020 Nutrition Services Gastroenterology Melissa Omalley RDN [address] [place] [address] [place] [address] [phone] 02/26/2020 Office Visit Gastroenterology Lyssa Stout CRNP [address] [facility], [place] [address] 05/06/2020 Office Visit Gynecology Obstetrics Aman Small CNM [address] [place] [address] 06/01/2020 Office Visit Hematology Oncology Tono Sanchez MD 200 [place] [address] [phone] 09/03/2020 Imaging Radiology Health Maintenance Due Date [...] Documents on File Type Date Recorded Patient Purchasing Clerk Expl 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
--- OUTSIDE RECORDS SUMMARY | 2023-05-10 22:46 | External Medical Summary | Summary of Care ---
Author Name Unknown Organization [facility] Address [place] [address] Care Team Providers Care Farmworker Livestock Name Role Phone Rajwinder Carter Primary Care Provider [phone] Encounter Details Date Type Department Care Team [...] than 7.0% ([facility]) TAKE 1 TABLET BY MOUTH TWICE [...] Dosing Unit 5 10/07/2019 Active nystatin (NYSTOP) 789446 UNIT/GM powder Apply topically to affected area [...] pain 01/24/2012 01/17/2017 Genetic Sleep Disorder Research Other*[id number] 05/13/2011 04/07/2016 Obstructive sleep apnea 01/18/2011 12/27/19 [...] Family Medicine Carter Chan MD [address] [place] [address] [phone] 01/02/2020 Hem/Onc Treatment Hematology Oncology [place], Chair 10 Hem Onc [facility] [address] [place] [address] [phone] 01/16/2020 Hem/Onc Treatment Hematology Oncology [place], Chair 11 Hem Onc Scenery 200 [place] [address] [phone] 01/27/2020 Office Visit Family Medicine Rajwinder Carter DO [address] [place] [address] [phone] 01/29/2020 Nutrition Services Gastroenterology Melissa Omalley RDN [address] [place] [address] [place] [address] [phone] 02/26/2020 Office Visit Gastroenterology Lyssa Stout CRNP [address] [place], [place] [address] 05/06/2020 Office Visit Gynecology Obstetrics Aman Small CNM [address] [place] [address] 06/01/2020 Office Visit Hematology Oncology Tono Sanchez MD 200 [place] [address] [phone] 09/03/2020 Imaging Radiology Health Maintenance Due Date [...] Documents on File Type Date Recorded Patient Consumer Studies Professor Expl 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
--- OUTSIDE RECORDS SUMMARY | 2023-05-10 22:47 | External Medical Summary | Summary of Care ---
Author Name Unknown Organization [place] [address] Care Team Providers Care Cross Tie Cutter Name Role Phone Rajwinder Carter Primary Care Provider [phone] Reason for Visit * Reason Comments Appointment COVID PRESCREENING Information Patient admitted to [facility] Encounter Details Date Type Department Care Team Description 12/24/2019 Telephone Hematology/Oncology [facility] [address] [place] [address] Tono Sanchez MD [address] [place] [address] [phone] Appointment (COVID PRESCREENING); Informat... Allergies Active Allergy [...] less than 7.0% ([facility]) TAKE 1 TABLET [...] Dosing Unit 5 10/07/2019 Active nystatin (NYSTOP) 663039 UNIT/GM powder Apply topically to affected area [...] pain 01/24/2012 01/17/2017 Genetic Sleep Disorder Research Other*[id number] 05/13/2011 04/07/2016 Obstructive sleep apnea 01/18/2011 12/27/19 [...] 10:30 AM EDT appt for tomorrow is canceled. * Telephone Encounter - Lilian Jara CMA - 12/24/2019 10:00 AM EDT Called and her Syed jensen stated Shaina was admitted to the hospital. documented in this encounter Plan of Treatment Upcoming Encounters Date Type Specialty Care Team Description 01/02/2020 Hem/Onc Treatment Hematology Oncology [place], Chair 10 Hem Onc Scenery 200 [facility] [place] [address] [phone] 01/16/2020 Hem/Onc Treatment Hematology Oncology [place], Chair 11 Hem Onc Scenery 200 [facility] [place] [address] [phone] 01/27/2020 Office Visit Family Medicine Rajwinder Carter DO [address] [place] [address] 01/29/2020 Nutrition Services Gastroenterology Melissa Omalley RDN [address] [place] [address] [facility] [place] [address] [phone] 02/26/2020 Office Visit Gastroenterology Lyssa Stout CRNP 132 [facility] [place] [address] [phone] 05/06/2020 Office Visit Gynecology Obstetrics Aman Small CNM [address] [place] [address] [phone] 06/01/2020 Office Visit Hematology Oncology Tono Sanchez MD 200 [facility], [place] [address] 09/03/2020 Imaging Radiology Health Maintenance Due Date [...] Documents on File Type Date Recorded Patient Linesperson Expl 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
--- OUTSIDE RECORDS SUMMARY | 2023-05-10 22:47 | External Medical Summary | Summary of Care ---
Author Name Unknown Organization [place] [address] Care Team Providers Care Revenue Field Auditor Name Role Phone Rajwinder Carter Primary Care Provider [phone] Reason for Visit * Reason Comments Appointment COVID PRESCREENING Information Patient admitted to [facility] Encounter Details Date Type Department Care Team Description 12/24/2019 Telephone Hematology/Oncology [facility] [address] [place] [address] Tono Sanchez MD [address] [place] [address] [phone] Appointment (COVID PRESCREENING); Informat... Allergies Active Allergy [...] less than 7.0% ([facility]) TAKE 1 TABLET BY [...] Dosing Unit 5 10/07/2019 Active nystatin (NYSTOP) 328433 UNIT/GM powder Apply topically to affected area [...] pain 01/24/2012 01/17/2017 Genetic Sleep Disorder Research Other*[id number] 05/13/2011 04/07/2016 Obstructive sleep apnea 01/18/2011 12/27/19 [...] Encounters Date Type Specialty Care Team Description 12/25/2019 Hem/Onc Treatment Hematology Oncology [place], Chair 11 Hem Onc Scenery [address] [place] [address] [phone] 01/02/2020 Hem/Onc Treatment Hematology Oncology [place], Chair 10 Hem Onc Sc[address]ery [address] [place] [address] [phone] 01/16/2020 Hem/Onc Treatment Hematology Oncology [place], Chair 11 Hem Onc Sc[address]ery [address] [place] [address] [phone] 01/27/2020 Office Visit Family Medicine Rajwinder Carter DO [address] [facility] [place] [address] 01/29/2020 Nutrition Services Gastroenterology Melissa Omalley RDN [address] [place] [address] [place] [address] 02/26/2020 Office Visit Gastroenterology Lyssa Stout CRNP 132 [facility] [place] [address] [phone] 05/06/2020 Office Visit Gynecology Obstetrics Aman Small, MANAV [address] [place] [address] [phone] 06/01/2020 Office Visit Hematology Oncology Tono Sanchez MD 200 [facility], [place] [address] 09/03/2020 Imaging Radiology Health Maintenance Due Date [...] Documents on File Type Date Recorded Patient Religious Educator Expl 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
--- OUTSIDE RECORDS SUMMARY | 2023-05-10 22:47 | External Medical Summary | Summary of Care ---
Author Name Unknown Organization [place] [address] Care Team Providers Care Motorman/Woman Name Role Phone Rajwinder Carter Primary Care Provider [phone] Reason for Visit * Reason Comments Appointment COVID PRESCREENING Encounter Details Date Type Department Care Team Description 12/18/2019 Telephone Hematology/Oncology [facility] 200 [place] [address] Tono Sanchez MD [address] [place], [place] [address] Appointment (COVID PRESCREENING) Allergies Active Allergy Reactions Severity Noted Date Comments Penicillins Rash 02/12/2008 documented as of this encounter (statuses as of 12/18/2019) Medications Medication Sig Dispensed Refills Start Date [...] Dosing Unit 5 10/07/2019 Active nystatin (NYSTOP) 093828 UNIT/GM powder Apply topically to affected area [...] as of this encounter (statuses as of 12/18/2019) Active Problems Problem Noted Date Iron deficiency [...] as of this encounter (statuses as of 12/18/2019) Resolved Problems Problem Noted Date Resolved Date [...] pain 01/24/2012 01/17/2017 Genetic Sleep Disorder Research Other*[id number] 05/13/2011 04/07/2016 Obstructive sleep apnea 01/18/2011 12/27/19 [...] as of this encounter (statuses as of 12/18/2019) Immunizations Name Administration Dates Next Due HEP [...] file Travel History Travel Start Travel End documented as of this encounter Miscellaneous Notes * Telephone Encounter - Lilian Jara CMA - 12/18/2019 11:19 AM EDT Called and spoke with Shaina for COVID Prescreening. 1. Have you had any contact with individuals who have flu like symptoms, confirmed flu or coronavirus in the last 14 days)? Answer: No 2. Do you have any Respiratory symptoms? (A new cough or shortness of breath) Answers: No?? But she was coughing when I was talking to her. 3. Do you have a fever greater than or equal to 100.4, Answer: Not today Advised she will be given a mask at entrance 2 and the mask would need to stay on while inside the building. documented in this encounter Plan of Treatment Upcoming Encounters Date Type Specialty Care Team Description 12/19/2019 Hem/Onc Treatment Hematology Oncology [place], Chair 10 Hem Onc Scenery [address] [place] [address] [phone] 01/02/2020 Hem/Onc Treatment Hematology Oncology [place], Chair 10 Hem Onc Scenery [address] [place] [address] [phone] 01/16/2020 Hem/Onc Treatment Hematology Oncology [place], Chair 11 Hem Onc Sc[address]ery [address] [place] [address] [phone] 01/27/2020 Office Visit Family Medicine Rajwinder Carter DO [address] [facility] [place] [address] [phone] 01/29/2020 Nutrition Services Gastroenterology Melissa Omalley, SAMANTHA [address] [place] [address] [facility] [place] [address] [phone] 02/26/2020 Office Visit Gastroenterology Lyssa Stout CRNP 132 [facility] [place] [address] [phone] 05/06/2020 Office Visit Gynecology Obstetrics Aman Small, CN 400 [facility] [place] [address] 06/01/2020 Office Visit Hematology Oncology Tono Sanchez MD 200 [place] [address] [phone] 09/03/2020 Imaging Radiology Health Maintenance Due Date [...] Documents on File Type Date Recorded Patient Project Architect Expl 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
--- OUTSIDE RECORDS SUMMARY | 2023-05-10 22:47 | External Medical Summary | Summary of Care ---
Author Name Unknown Organization [place] [address] Care Team Providers Care Dray Driver Name Role Phone Rajwinder Carter Primary Care Provider [phone] Reason for Visit * Reason Comments Appointment COVID PRESCREENING Information Patient admitted to [facility] Encounter Details Date Type Department Care Team Description 12/24/2019 Telephone Hematology/Oncology [facility] 200 [place] [address] Tono Sanchez MD 200 [place] [address] [phone] Appointment (COVID PRESCREENING); Informat... Allergies Active Allergy [...] less than 7.0% ([facility]) TAKE 1 TABLET BY MOUTH TWICE [...] Dosing Unit 5 10/07/2019 Active nystatin (NYSTOP) 518825 UNIT/GM powder Apply topically to affected area [...] pain 01/24/2012 01/17/2017 Genetic Sleep Disorder Research Other*[id number] 05/13/2011 04/07/2016 Obstructive sleep apnea 01/18/2011 12/27/19 [...] Chair 11 Hem Onc Scenery [address] [place] [address] [phone] 01/02/2020 Hem/Onc Treatment Hematology Oncology [place], Chair 10 Hem Onc Sc[address]ery [address] [place] [address] [phone] 01/16/2020 Hem/Onc Treatment Hematology Oncology [place], Chair 11 Hem Onc Scenery [address] [place] [address] [phone] 01/27/2020 Office Visit Family Medicine Rajwinder Carter DO [address] [facility] [place] [address] 01/29/2020 Nutrition Services Gastroenterology Melissa Omalley RDN [address] [place] [address] [place] [address] 02/26/2020 Office Visit Gastroenterology Lyssa Stout CRNP 132 [facility] [place] [address] [phone] 05/06/2020 Office Visit Gynecology Obstetrics Aman Small, MANAV [address] [place] [address] [phone] 06/01/2020 Office Visit Hematology Oncology Tono Sanchez MD 200 [facility], [place] [address] 09/03/2020 Imaging Radiology Health Maintenance Due Date [...] on File Type Date Recorded Patient Assistant Grocery Store Manager Expl 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
--- OUTSIDE RECORDS SUMMARY | 2023-05-10 22:47 | External Medical Summary | Summary of Care ---
Author Name Unknown [place] [address] Care Team Providers Care Dumper Central [employer]crete Mixing Plant Name Role Phone Rajwinder Carter Primary Care Provider [phone] Reason for Visit * Reason Comments Appointment COVID PRESCREENING Encounter Details Date Type Department Care Team Description 12/18/2019 Telephone Hematology/Oncology [facility] 200 [place] [address] Tono Sanchez MD 200 [place], [place] [address] Appointment (COVID PRESCREENING) Allergies Active Allergy Reactions [...] Dosing Unit 5 10/07/2019 Active nystatin (NYSTOP) 105752 UNIT/GM powder Apply topically to affected area [...] pain 01/24/2012 01/17/2017 Genetic Sleep Disorder Research Other*[id number] 05/13/2011 04/07/2016 Obstructive sleep apnea 01/18/2011 12/27/19 [...] Telephone Encounter - Renetta Schuler RN - 12/18/2019 2:44 PM EDT Called pt to review responses to Covid-19 screening questions. Pt was discharged from [facility] over the, after tx for bacterial pneumonia, sepsis, and acute GI bleed. Pt is still on ABX, and has an audible cough with SOB. Pt said she "didn't think" she's had a fever since she's been home. Pt was advised to reschedule for next Venofer infusion d/t lingering symptoms since hospitalization and current ABX treatment. Pt was in agreement; rescheduled for 12/24. * Telephone Encounter - Lilian Jara CMA [...] Chair 11 Hem Onc Scenery [address] [place] [address] [phone] 01/02/2020 Hem/Onc Treatment Hematology Oncology [place], Chair 10 Hem Onc Scenery 200 [place] [address] [phone] 01/16/2020 Hem/Onc Treatment Hematology Oncology [place], Chair 11 Hem Onc [facility] 200 [place] [address] [phone] 01/27/2020 Office Visit Family Medicine Rajwinder Carter DO [address] [place] [facility] [place] [address] [phone] 01/29/2020 Nutrition Services Gastroenterology Melissa Omalley, [place] [address] [place] [address] [phone] 02/26/2020 Office Visit Gastroenterology Lyssa Stout CRNP 132 [facility] [place] [address] [phone] 05/06/2020 Office Visit Gynecology Obstetrics Aman Small, BOO 400 [facility] [place] [address] 06/01/2020 Office Visit Hematology Oncology Tono Sanchez MD 200 [facility], [place] [address] [phone] 09/03/2020 Imaging Radiology Health Maintenance Due Date [...] Documents on File Type Date Recorded Patient Wedding Coordinator Expl 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
--- OUTSIDE RECORDS SUMMARY | 2023-05-10 22:47 | External Medical Summary | Summary of Care ---
Author Name Unknown Organization [place] [address] Care Team Providers Care Liquor Bridge Operator Helper Name Role Phone Rajwinder Carter Primary Care Provider [phone] Reason for Visit * Reason Comments Appointment COVID PRESCREENING Encounter Details Date Type Department Care Team Description 12/18/2019 Telephone Hematology/Oncology [facility] 200 [place] [address] Tono Sanchez MD [address] [place], [place] [address] Appointment (COVID PRESCREENING) Allergies Active Allergy Reactions [...] Dosing Unit 5 10/07/2019 Active nystatin (NYSTOP) 260953 UNIT/GM powder Apply topically to affected area [...] pain 01/24/2012 01/17/2017 Genetic Sleep Disorder Research Other*[id number] 05/13/2011 04/07/2016 Obstructive sleep apnea 01/18/2011 12/27/19 [...] Team Description 12/19/2019 Hem/Onc Treatment Hematology Oncology [place], Chair 10 Hem Onc Sc[address]ery [address] [place] [address] [phone] 01/02/2020 Hem/Onc Treatment Hematology Oncology [place], Chair 10 Hem Onc Sc[address]ery [address] [place] [address] [phone] 01/16/2020 Hem/Onc Treatment Hematology Oncology [place], Chair 11 Hem Onc Scenery [address] [place] [address] [phone] 01/27/2020 Office Visit Family Medicine Rajwinder Carter DO [address] [facility] [place] [address] [phone] 01/29/2020 Nutrition Services Gastroenterology Melissa Omalley, SAMANTHA [address] [place] [address] [facility] [place] [address] [phone] 02/26/2020 Office Visit Gastroenterology Lyssa Stout CRNP 132 [facility] [place] [address] [phone] 05/06/2020 Office Visit Gynecology Obstetrics Aman Small, CN 400 [facility] [place] [id number] 06/01/2020 Office Visit Hematology Oncology Tono Sanchez MD 200 [place] [address] [phone] 09/03/2020 Imaging Radiology Health Maintenance Due Date [...] Documents on File Type Date Recorded Patient Register Of Wills Expl 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
--- OUTSIDE RECORDS SUMMARY | 2023-05-10 22:47 | External Medical Summary | Summary of Care ---
Author Name Unknown Organization [facility] Address [place] [address] Care Team Providers Care Packing Machine Can Feeder Name Role Phone Rajwinder Carter Primary Care Provider [phone] Encounter Details Date Type Department Care Team Description 12/15/2019 Scan Encounter Unspecified Department <No scans attached> Allergies Active Allergy Reactions Severity Noted Date Comments Penicillins Rash 02/12/2008 documented as of this encounter (statuses as of 12/19/2019) Medications Medication Sig Dispensed Refills Start Date [...] less than 7.0% ([facility]) TAKE 1 TABLET BY MOUTH TWICE [...] Dosing Unit 5 10/07/2019 Active nystatin (NYSTOP) 873543 UNIT/GM powder Apply topically to affected area [...] as of this encounter (statuses as of 12/19/2019) Active Problems Problem Noted Date Iron deficiency [...] as of this encounter (statuses as of 12/19/2019) Resolved Problems Problem Noted Date Resolved Date [...] pain 01/24/2012 01/17/2017 Genetic Sleep Disorder Research Other*[id number] 05/13/2011 04/07/2016 Obstructive sleep apnea 01/18/2011 12/27/19 [...] as of this encounter (statuses as of 12/19/2019) Immunizations Name Administration Dates Next Due HEP [...] Travel End documented as of this encounter Plan of Treatment Upcoming Encounters Date Type Specialty Care Team Description 12/25/2019 Hem/Onc Treatment Hematology Oncology [place], Chair 11 Hem Onc Scenery [address] [place] [address] [phone] 01/02/2020 Hem/Onc Treatment Hematology Oncology [place], Chair 10 Hem Onc Scenery [address] [place] [address] [phone] 01/16/2020 Hem/Onc Treatment Hematology Oncology [place], Chair 11 Hem Onc Scenery [address] [place] [address] [phone] 01/27/2020 Office Visit Family Medicine Rajwinder Carter DO [address] [place] [address] [phone] 01/29/2020 Nutrition Services Gastroenterology Melissa Omalley RDN [address] [place] [place] [address] [phone] 02/26/2020 Office Visit Gastroenterology Lyssa Stout CRNP [address] [place] [address] [phone] 05/06/2020 Office Visit Gynecology Obstetrics Aman Small CNM 400 [facility] [place] [address] 06/01/2020 Office Visit Hematology Oncology Tono Sanchez MD 200 [place] [address] [phone] 09/03/2020 Imaging Radiology Health Maintenance Due Date [...] on File Type Date Recorded 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
--- OUTSIDE RECORDS SUMMARY | 2023-05-10 22:47 | External Medical Summary | Summary of Care ---
Author Name Unknown Organization [facility] Address [facility] [place] [address] Care Team Providers Care Cage Maker Machine Name Role Phone Rajwinder Carter Primary Care Provider [phone] Reason for Visit * Reason Comments Acute Cough and sore throa t Encounter Details Date Type Department Care Team Description 12/23/2019 Office Visit Family Practice [facility] [address] [place] [address] Mary Dos Santos PA-C [address] [place] [address] [phone] Dyspnea, unspecified type*; Bacterial pneumonia; Anemia, unspecified type; Cirrhosis of liver without ascites, unspecified hepatic cirrhosis type (HCC); Pancytopenia (HCC) Allergies Active Allergy Reactions Severity Noted Date Comments Penicillins Rash 02/12/2008 documented as of this encounter (statuses as of 12/23/2019) Medications Medication Sig Dispensed Refills Start Date [...] Dosing Unit 5 10/07/2019 Active nystatin (NYSTOP) 844750 UNIT/GM powder Apply topically to affected area [...] as of this encounter (statuses as of 12/23/2019) Active Problems Problem Noted Date Iron deficiency [...] as of this encounter (statuses as of 12/23/2019) Resolved Problems Problem Noted Date Resolved Date [...] pain 01/24/2012 01/17/2017 Genetic Sleep Disorder Research Other*[id number] 05/13/2011 04/07/2016 Obstructive sleep apnea 01/18/2011 12/27/19 [...] as of this encounter (statuses as of 12/23/2019) Immunizations Name Administration Dates Next Due HEP [...] Travel End documented as of this encounter Last Filed Vital Signs Vital Sign Reading Time Taken Comments Blood Pressure 120/64 12/23/2019 2:35 PM EDT Pulse 72 12/23/2019 2:35 PM EDT Temperature 36.7 C (98.1 F) 12/23/2019 2:35 PM ED T Respiratory Rate 18 12/23/2019 2:35 PM EDT Oxygen Saturation 91% 12/23/2019 2:35 PM EDT ROOM AIR Inhaled Oxygen Concentration - - Weight 128.4 kg (283 lb) 12/23/2019 2:35 PM EDT per pt Height - - Body Mass Index 57.16 12/03/2019 12:07 PM EDT documented in this encounter Progress Notes * Mary Dos Santos PA-C - 12/23/2019 2:49 PM EDT Subjective Shaina Bustos is a 64 year old female. Chief Complaint Patient presents with Acute Cough and sore throat Brief Clinical History Ms. Bustos is a 64 year old woman last seen in Family Medicine 4 weeks ago (11-25-19). She has h/o cerebral palsy, chronic diabetic complication, hematological disorder, immunity disorder, liver cirrhosis, and morbid obesity, due for eval of Recurrent major depressive disorder, in partial remission (HCC). HPI: Patient c/o dyspnea, fatigue, belching. The patient was admitted 12/11 for gi bleed, sepsis, pneumonia. She was discharged and feeling well when she spoke with her PCP 12/17/19. Since then, she has developed sore throat, belching, dyspnea and has continued cough. She is currently taking levaquin. No diarrhea. +dark stool. Overall, she is feeling much worse. She tested negative for influenza A/B but it does not look like she was tested for COVID-19. PMH: Patient Active Problem List Diagnosis Code Edema R60.9 Venous insufficiency I87.2 Spinal stenosis of lumbar region without neurogenic claudication M48.061 Cerebral palsy ([facility]) G80.9 HTN, goal below 140/90 I10 [...] than 7.0% ([facility]) E11.9 Vitamin D deficiency E55.9 Restrictive lung disease J98.4 Obesity, morbid (more than 100 lbs over ideal weight or BMI > 40) ([facility]) E66.01 Dyslipidemia, goal LDL below 70 E78.5 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 R39.81 Acquired hypothyroidism E03.9 Chronic pain syndrome G89.4 MEDICATION USE AGREEMENT [id number] History of Clostridium difficile colitis Z86.19 Cirrhosis of liver ([facility]) K74.60 THAD on CPAP G47.33, Z99.89 Wheelchair dependent Z99.3 History of recent fall Z91.81 Pancytopenia ([facility]) D61.818 Ambulatory dysfunction R26.2 Fall W19.XXXA Sprain of right ankle S93.401A DM type 2 with diabetic peripheral neuropathy ([facility]) E11.42 Insomnia G47.00 Recurrent major depressive disorder, in partial remission ([facility]) F33.41 Impaired mobility and ADLs Z74.09 Generalized weakness R53.1 Gastroesophageal reflux disease K21.9 History of kidney stones Z87.442 History of Achilles tendon repair Z98.890 History of delivery Z98.891 History of MRSA infection Z86.14 History of migraine Z86.69 Anemia D64.9 Fibromyalgia M79.7 Achilles tendinitis, right leg M76.61 DNR (do not resuscitate) Z66 Thrombocytopenia ([facility]) D69.6 Iron deficiency anemia due [...] at bedtime 100 Each 10 nystatin (NYSTOP) 040125 UNIT/GM powder Apply topically to affected area [...] Tabs by mouth daily. 60 Tab 5 atorvaSTATin (LIPITOR) 40 MG Tablet TAKE 1 TABLET BY MOUTH EVERY NIGHT AT BEDTIME 90 Tab 0 fluticasone (FLONASE) 50 MCG/ACT nasal spray INSTILL 2 SPRAYS INTO EACH NOSTRIL DAILY DIRECTED 16 g 5 MetFORMIN (GLUCOPHAGE) 1000 MG Tablet TAKE 1 TABLET BY MOUTH TWICE DAILY WITH FOOD 180 Tab 3 furosemide (LASIX) 20 MG Tablet Take 20 [...] DIAGNOSTIC (RECTUM) 10/04/2016 normal bx, repeat 10 yrs/[facility] DENTAL SURGERY PROCEDURE NEC wisdom teeth x 4 DILATION AND CURETTAGE (D&C) EGD, FLEXIBLE, DIAGNOSTIC 10/04/2016 gastritis/[facility] EGD, FLEXIBLE, DIAGNOSTIC 01/11/2018 eso varices, retained food, repeat 1 yr/[facility] PELVIS/HIP JOINT SURGERY NEC teenager aid in walking REPAIR/GRAFT ACHILLES TENDON age 40 aid in walking Review of patient's allergies indicates: Allergen Reactions Pcn [Penicillins] Rash Family History Problem Relation Age of Onset Heart Disorder Father of [place] at age 61 Diabetes Father Heart Disorder Mother of [place] age 72 Cancer None Arthritis None Stroke [...] file Social History Narrative 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 Negative for fever. HENT: Negative for congestion, sinus pressure and sneezing. Respiratory: Positive for cough, chest tightness and shortness of breath. Gastrointestinal: Positive for abdominal pain and blood in stool. Negative for diarrhea, nausea andvomiting. Objective BP 120/64 | Pulse 72 | Temp (Src) 98.1 (Tympanic) | Resp 18 | Wt 283 lbs (128.368kg) | BMI 57.16 kg/m | BSA 2.31 m | SaO2 91[ROOM AIR[% Physical Exam Vitals signs and nursing note reviewed. Constitutional: General: She is not in acute distress. Appearance: Normal appearance. She is obese. She is ill-appearing. She is not toxic-appearing or diaphoretic. Comments: Pale HENT: Head: Normocephalic and atraumatic. Nose: No congestion or rhinorrhea. Mouth/Throat: Mouth: Mucous membranes are moist. Pharynx: No oropharyngeal exudate or posterior oropharyngeal erythema. Cardiovascular: Rate and Rhythm: Normal rate and regular rhythm. Heart sounds: Murmur present. Pulmonary: Breath sounds: Examination of the left-middle field reveals rales. Examination of the left-lower field reveals rales. Decreased breath sounds and rales present. Abdominal: General: Abdomen is flat. Palpations: Abdomen is soft. Tenderness: There is no abdominal tenderness. Skin: General: Skin is warm and dry. Coloration: Skin is pale. Neurological: Mental Status: She is alert. ASSESSMENT/PLAN: Dyspnea, unspecified type (Primary) Bacterial pneumonia sao2 91% room air Crackles on the left Dyspnea, fatigue Would meet testing criteria at this point for COVID-19; will defer to ER Recommend ER evaluation given recent admission, gi bleed, sepsis, pneumonia and worsening symptoms Discussed with charge preparation technician. Patient aware she cannot have any visitors with her will take her; declined EMS Anemia, unspecified type Pale, recent transfusion, dyspnea ? Secondary to symptomatic anemia v. Cirrhosis of liver without ascites, unspecified hepatic cirrhosis type (HCC) Pancytopenia (HCC) Call or return to clinic prn if these symtoms worsen or fail to improve as anticipated. Mary Dos Santos PA-C documented in this encounter Nursing Notes * Kiesha Schmitt LPN - 12/23/2019 2:34 PM EDT Cough and sore throat documented in this encounter Plan of Treatment Upcoming Encounters Date Type Specialty Care Team Description 12/25/2019 Hem/Onc Treatment Hematology Oncology [place], [address] [facility] [place] [address] [phone] 01/02/2020 Hem/Onc Treatment Hematology Oncology [place], Chair [address] [place] [address] [phone] 01/16/2020 Hem/Onc Treatment Hematology Oncology [place], Chair [address] [facility] [place] [address] [phone] 01/27/2020 Office Visit Family Medicine Rajwinder Carter DO [address] [place], [place] [id number] 01/29/2020 Nutrition Services Gastroenterology Melissa Omalley, SAMANTHA [address] [facility] [address] [place] [id number] 02/26/2020 Office Visit Gastroenterology Lyssa Stout CRNP 132 [facility] [place] [address] [phone] 05/06/2020 Office Visit Gynecology Obstetrics Aman Small, BOO [address] [facility] [place] [id number] 06/01/2020 Office Visit Hematology Oncology Tono Sanchez MD 200 [facility], [place] [address] [phone] 09/03/2020 Imaging Radiology Health Maintenance Due Date [...] Visit Diagnoses Diagnosis Dyspnea, unspecified type- Primary Bacterial pneumonia Bacterial pneumonia, unspecified Anemia, unspecified type Cirrhosis of liver without ascites, unspecified hepatic cirrhosis type (HCC) Pancytopenia (HCC) Other pancytopenia documented in this encounter Advance Directives Documents on File Type Date Recorded Patient Concrete Floater Expl 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"
--- OUTSIDE RECORDS SUMMARY | 2023-05-10 22:48 | External Medical Summary | Summary of Care ---
Author Name Unknown Organization [facility] Address [place] [address] Care Team Providers Care Instrumentation Technician Name Role Phone Rajwinder Carter Primary Care Provider [phone] Encounter Details Date Type Department Care Team Description 12/12/2019 Scan Encounter Unspecified Department <No scans attached> Allergies Active Allergy Reactions Severity Noted Date Comments Penicillins Rash 02/12/2008 documented as of this encounter (statuses as of 12/16/2019) Medications Medication Sig Dispensed Refills Start Date [...] ([facility]) TAKE 1 TABLET BY MOUTH TWICE DAILY [...] Dosing Unit 5 10/07/2019 Active nystatin (NYSTOP) 157308 UNIT/GM powder Apply topically to affected area [...] as of this encounter (statuses as of 12/16/2019) Active Problems Problem Noted Date Iron deficiency [...] as of this encounter (statuses as of 12/16/2019) Resolved Problems Problem Noted Date Resolved Date [...] pain 01/24/2012 01/17/2017 Genetic Sleep Disorder Research Other*[id number] 05/13/2011 04/07/2016 Obstructive sleep apnea 01/18/2011 12/27/19 [...] as of this encounter (statuses as of 12/16/2019) Immunizations Name Administration Dates Next Due HEP [...] Team Description 12/19/2019 Hem/Onc Treatment Hematology Oncology [place], Chair [address] [place] [address] [phone] 01/02/2020 Hem/Onc Treatment Hematology Oncology [place], Chair [address] [place] [address] [phone] 01/16/2020 Hem/Onc Treatment Hematology Oncology [place], Chair [address] [place] [address] [phone] 01/27/2020 Office Visit Family Medicine Rajwinder Carter DO [address] [place] [address] [phone] 01/29/2020 Nutrition Services Gastroenterology Melissa Omalley RDN [address] [place] [address] [place] [address] [phone] 02/26/2020 Office Visit Gastroenterology Lyssa Stout CRNP [address] [place] [address] [phone] 05/06/2020 Office Visit Gynecology Obstetrics Aman Small CNM 400 [facility] [place] [id number] 06/01/2020 Office Visit Hematology Oncology Tono Sanchez MD 200 [place] [address] [phone] 09/03/2020 Imaging Radiology Health Maintenance Due Date [...] Documents on File Type Date Recorded 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
--- OUTSIDE RECORDS SUMMARY | 2023-05-10 22:48 | External Medical Summary | Summary of Care ---
Author Name Unknown Organization [facility] Address [place] [address] Care Team Providers Care Section 8 Property Manager Name Role Phone Rajwinder Carter Primary Care Provider [phone] Encounter Details Date Type Department Care Team Description 12/13/2019 Scan Encounter Unspecified Department <No scans attached> [...] less than 7.0% ([facility]) TAKE 1 TABLET BY MOUTH TWICE DAILY [...] Dosing Unit 5 10/07/2019 Active nystatin (NYSTOP) 449319 UNIT/GM powder Apply topically to affected area [...] pain 01/24/2012 01/17/2017 Genetic Sleep Disorder Research Other*[id number] 05/13/2011 04/07/2016 Obstructive sleep apnea 01/18/2011 12/27/19 [...] Chair 10 Hem [address] [place] [address] [phone] 01/02/2020 Hem/Onc Treatment Hematology Oncology [place], Chair [address] [place] [address] [phone] 01/16/2020 Hem/Onc Treatment Hematology Oncology [place], Chair [address] [place] [address] [phone] 01/27/2020 Office Visit Family Medicine Rajwinder Carter DO [address] [place] [address] [phone] 01/29/2020 Nutrition Services Gastroenterology Melissa Omalley RDN [address] [place] [address] [place] [address] [phone] 02/26/2020 Office Visit Gastroenterology Lyssa Stout CRNP [address] [place] [address] [phone] 05/06/2020 Office Visit Gynecology Obstetrics Aman Small CNM 400 [facility] [place] [id number] 06/01/2020 Office Visit Hematology Oncology Tono Sanchez MD 200 [facility] [place] [address] [phone] 09/03/2020 Imaging Radiology Health Maintenance Due Date [...] Documents on File Type Date Recorded 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
--- OUTSIDE RECORDS SUMMARY | 2023-05-10 22:48 | External Medical Summary | Summary of Care ---
Author Name Unknown Organization [facility] Address [place] [address] Care Team Providers Care Cracker Off Name Role Phone Rajwinder Carter DO Primary Care Provider [phone] Reason for Visit * Reason Comments Advice Encounter Details Date Type Department Care Team Description 12/12/[address] [facility] [address] [place] [address] Rajwinder Carter DO [address] [place] [address] Advice Allergies Active Allergy Reactions Severity Noted Date Comments Penicillins Rash 02/12/2008 documented as of this encounter (statuses as of 12/12/2019) Medications Medication Sig Dispensed Refills Start Date [...] Dosing Unit 5 10/07/2019 Active nystatin (NYSTOP) 630849 UNIT/GM powder Apply topically to affected area [...] as of this encounter (statuses as of 12/12/2019) Active Problems Problem Noted Date Iron deficiency [...] as of this encounter (statuses as of 12/12/2019) Resolved Problems Problem Noted Date Resolved Date [...] pain 01/24/2012 01/17/2017 Genetic Sleep Disorder Research Other*[id number] 05/13/2011 04/07/2016 Obstructive sleep apnea 01/18/2011 12/27/19 [...] as of this encounter (statuses as of 12/12/2019) Immunizations Name Administration Dates Next Due HEP [...] Telephone Encounter - Brianne Pal PA-C - 12/12/2019 2:36 PM EDT Noted Brianne Pal PA-C 12/12/2019 2:36 PM * Telephone Encounter - Deepali Ortiz OSA - 12/12/2019 1:16 PM EDT Pt returning call. Advised of Brianne's message. Pt did not have a urine done, she was treated overthe phone. They prescribed her macrobid. Pt states she is going to wait and see how she feels by tomorrow. If she feels worse enough that she thinks the ER is neccessary she will go. Otherwise, she will call back to schedule appt. Pt aware she will need seen at [facility] location. * Telephone Encounter - Michaelle Lindquist LPN - 12/12/2019 12:29 PM EDT Attempted to call pt no answer and Mailbox full. * Telephone Encounter - Brianne Pal PA-C - 12/12/2019 11:18 AM EDT I think it depends on how sick she is. Also, did her doctor do a urine culture on her? Did they start her on meds the day she saw them / talked to them? She could be seen here - both Cate and Dr Ann aranda here today and could see her to try to determine if we can treat her outpatient. So if sh eis really sick and they think she could need admitted, er is fine. If she is just feelingcruddy and they treated her over the phone, then Cate or Rajwinder could see her and try to avoid the er. Brianne Pal PA-C * Telephone Encounter - Shahnaz Francis LPN - 12/12/2019 11:09 AM EDT Pt tried to call urology office and was unable to get through temp this morning was 101.4 pt took 2tylenol. Had pt recheck temp while on the phone 100.7. Please advise * Telephone Encounter - Caron Vargas LPN - 12/12/2019 10:30 AM EDT Spoke with patient. States she has temp of 101.4 She took tylenol "a while ago" She has had a cough for "years" No cold or flu like symptoms. Didn't sleep well last night. Was dx with UTI by Dr. Escobar- he is urology doctor. She was placed on Macrobid 100 MG. BID. Spouse states "She just doesn't feel good" "I have her dressed to go to the hospital incase she hasto go" Spoke with Shahnaz at office- Have them call urology since tx from him yesterday- Call back if nodirection. FYI to PCP Travel Screening Question Response Do you have any of the following symptoms? Cough;Fever In the last month, have you been in contact with someone who was confirmed or suspected to have Coronavirus / COVID-19? No / Unsure Have you traveled internationally in the last month? No Travel History Travel since 11/11/19 No documented travel since 11/11/19 * Telephone Encounter - Janett Mosquera OSA - 12/12/2019 10:28 AM EDT Reason for patient's call: temp of 101.4 no cold symptoms just started antibiotics for UTI yesterday 12/10 Caller was transferred to [facility] at the nurse line. documented in this encounter Plan of Treatment Upcoming Encounters Date Type Specialty Care Team Description 12/19/2019 Hem/Onc Treatment Hematology Oncology [place], Chair [address] Hem Onc Sc[address]ery [address] [facility] [place] [address] [phone] 01/02/2020 Hem/Onc Treatment Hematology Oncology [place], Chair [address] [place] [address] [phone] 01/16/2020 Hem/Onc Treatment Hematology Oncology [place], Chair [address] [place] [address] [phone] 01/27/2020 Office Visit Family Medicine Rajwinder Carter DO [address] [place] [address] [phone] 01/29/2020 Nutrition Services Gastroenterology Melissa Omalley RDN [address] [place] [address] [place] [address] [phone] 02/26/2020 Office Visit Gastroenterology Lyssa Stout CRNP [address] [place] [address] [phone] 05/06/2020 Office Visit Gynecology Obstetrics Aman Small, BOOM 400 [facility] [place] [id number] 06/01/2020 Office Visit Hematology Oncology Tono Sanchez MD 200 [facility] [place] [address] [phone] 09/03/2020 Imaging Radiology Health Maintenance Due Date [...] on File Type Date Recorded Patient Service 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
--- OUTSIDE RECORDS SUMMARY | 2023-05-10 22:48 | External Medical Summary | Summary of Care ---
Author Name Unknown Organization [facility] Address [place] [address] Care Team Providers Care Front Desk Auxiliary Name Role Phone Rajwinder Carter Primary Care Provider [phone] Encounter Details Date Type Department Care Team [...] than 7.0% ([facility]) TAKE 1 TABLET BY MOUTH [...] Dosing Unit 5 10/07/2019 Active nystatin (NYSTOP) 675386 UNIT/GM powder Apply topically to affected area [...] pain 01/24/2012 01/17/2017 Genetic Sleep Disorder Research Other*[id number] 05/13/2011 04/07/2016 Obstructive sleep apnea 01/18/2011 12/27/19 [...] Chair 10 Hem Onc Sc[address] [place] [address] [phone] 01/02/2020 Hem/Onc Treatment Hematology Oncology [place], Chair [address] [place] [address] [phone] 01/16/2020 Hem/Onc Treatment Hematology Oncology [place], Chair [address] [place] [address] [phone] 01/27/2020 Office Visit Family Medicine Rajwinder Carter DO [address] [place] [address] [phone] 01/29/2020 Nutrition Services Gastroenterology Melissa Omalley RDN [address] [place] [address] [place] [address] [phone] 02/26/2020 Office Visit Gastroenterology Lyssa Stout CRNP [address] [place] [address] [phone] 05/06/2020 Office Visit Gynecology Obstetrics Aman Small CNM 400 [facility] [place] [id number] 06/01/2020 Office Visit Hematology Oncology Tono Sanchez MD 200 [place] [address] [phone] 09/03/2020 Imaging Radiology Health Maintenance Due Date [...] on File Type Date Recorded 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
--- OUTSIDE RECORDS SUMMARY | 2023-05-10 22:48 | External Medical Summary | Summary of Care ---
Author Name Unknown Organization [facility] Address [place] [address] Care Team Providers Care Quality System Manager Name Role Phone Rajwinder Carter Primary Care Provider [phone] Encounter Details Date Type Department Care Team [...] Dosing Unit 5 10/07/2019 Active nystatin (NYSTOP) 288879 UNIT/GM powder Apply topically to affected area [...] pain 01/24/2012 01/17/2017 Genetic Sleep Disorder Research Other*[id number] 05/13/2011 04/07/2016 Obstructive sleep apnea 01/18/2011 12/27/19 [...] Encounters Date Type Specialty Care Team Description 12/17/2019 Telemedicine Family [facility] Rajwinder Carter, [address] [place] [address] [phone] 12/19/2019 Hem/Onc Treatment Hematology Oncology [place], Chair [address] Hem On[address] [place] [address] [phone] 01/02/2020 Hem/Onc Treatment Hematology Oncology [place], Chair 10 Hem Onc Sc[address] [place] [address] [phone] 01/16/2020 Hem/Onc Treatment Hematology Oncology [place], Chair 11 Hem Onc Sc[address]ery [address] [place] [address] [phone] 01/27/2020 Office Visit Family [facility] Rajwinder Carter DO [address] [place] [address] [phone] 01/29/2020 Nutrition Services Gastroenterology Melissa Omalley RDN [address] [place] [address] [place] [address] [phone] 02/26/2020 Office Visit Gastroenterology Lyssa Stout CRNP [address] [place] [address] [phone] 05/06/2020 Office Visit Gynecology Obstetrics Aman Small CNM [address] [facility] [place] [id number] 06/01/2020 Office Visit Hematology Oncology Tono Sanchez MD 200 [facility], [place] [address] [phone] 09/03/2020 Imaging Radiology Health Maintenance Due Date [...] Documents on File Type Date Recorded 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
--- OUTSIDE RECORDS SUMMARY | 2023-05-10 22:48 | External Medical Summary | Summary of Care ---
Author Name Unknown Organization [facility] Address [place] [address] Care Team Providers Care Director Of Business Operations Name Role Phone Rajwinder Carter DO Primary Care Provider [phone] Encounter Details Date Type Department Care Team Description 12/17/2019 Telemedicine Family Practice [facility] 132 [facility] [place] [address] Rajwinder Carter DO [address] [facility] [place] [id number] Bacterial pneumonia* Allergies Active Allergy Reactions Severity Noted Date Comments Penicillins Rash 02/12/2008 documented as of this encounter (statuses as of 12/17/2019) Medications Medication Sig Dispensed Refills Start Date [...] Dosing Unit 5 10/07/2019 Active nystatin (NYSTOP) 166464 UNIT/GM powder Apply topically to affected area [...] as of this encounter (statuses as of 12/17/2019) Active Problems Problem Noted Date Iron deficiency [...] as of this encounter (statuses as of 12/17/2019) Resolved Problems Problem Noted Date Resolved Date Chronic hypoxemic respiratory failure 04/08/2019 04/18/2019 Oxygen dependent 04/08/2019 04/18/2019 longterm resident 04/08/2019 05/02/2019 Preop examination 02/21/2019 04/04/2019 [...] pain 01/24/2012 01/17/2017 Genetic Sleep Disorder Research Other*[id number] 05/13/2011 04/07/2016 Obstructive sleep apnea 01/18/2011 12/27/19 [...] as of this encounter (statuses as of 12/17/2019) Immunizations Name Administration Dates Next Due HEP [...] Travel End documented as of this encounter Progress Notes * Rajwinder Carter DO - 12/17/2019 9:34 AM EDT After connecting to the patient via telephone, the patient was identified by name and date of . Patient was then informed that this was a telephone call only visit. The patient agreed to participate. Visit Disposition: Routine follow-up Total call duration was 6 minutes 45 seconds. Pt recently admitted for pneumonia and anemia. She was discharged to home on 12/14. She notes that she continues to take her antibiotics. She feels that her cough has improved. No further fevers that she is aware of but has not checked her temperature when she has felt warm. She is eating well. She did receive PRBC's while inpatient. She is scheduled for iron infusion on 12/18 at [facility]. She notes that she is feeling much better than what she initially felt. Pt will finish out antibiotics. She will complete CXR in 6 weeks. Keep f/u as scheduled. Discussed signs and symptoms that should warrant a call to us. documented in this encounter Plan of Treatment Upcoming Encounters Date Type Specialty Care Team Description 12/19/2019 Hem/Onc Treatment Hematology Oncology [place], Chair 10 Hem Onc [facility] 200 [facility] [place] [place] [address] [phone] 01/02/2020 Hem/Onc Treatment Hematology Oncology [place], Chair 10 Hem Onc Scenery [address] [facility] [place] [address] [phone] 01/16/2020 Hem/Onc Treatment Hematology Oncology [place], Chair 11 Hem Onc Scenery 200 [facility] [place] [address] [phone] 01/27/2020 Office Visit Family Medicine [facility]winder [facility] DO [address] [facility] [id number] 01/29/2020 Nutrition Services Gastroenterology Melissa Omalley, RDN [address] [place] [id number] 02/26/2020 Office Visit Gastroenterology [facility]sa Stout CRNP [facility] [address] 05/06/2020 Office Visit Gynecology Obstetrics Aman Small, CNM [address] [place] [id number] 06/01/2020 Office Visit Hematology Oncology Tono Sanchez MD 200 [place] [address] [phone] 09/03/2020 Imaging Radiology Scheduled Orders Name Type Priority Associated Diagnoses Orde r Schedule XR CHEST 2 VIEWS Medical Imaging Routine Bacterial pneumonia Ordered: 12/17/2019 Health Maintenance Due Date Last Done Comments [...] as of this encounter Visit Diagnoses Diagnosis Bacterial pneumonia- Primary Bacterial pneumonia, unspecified documented in this encounter Advance Directives Documents on File Type Date Recorded 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
--- OUTSIDE RECORDS SUMMARY | 2023-05-10 22:48 | External Medical Summary | Summary of Care ---
Author Name Unknown Organization [facility] Address [facility] [place] [address] Care Team Providers Care Automotive Parts Person Name Role Phone ArabellaBeverley thackerkierra Glover DO Primary Care Provider [phone] Reason for Visit * Reason Comments IV Therapy Venofer 09/14 Encounter Details Date Type Department Care Team Description 12/05/2019 Hem/Onc Treatment Hematology/Oncology Treatment, [place] [address] [place] [address] [place], Chair 11 Hem Onc Scenery [address] [place] [address] [phone] Iron deficiency anemia due to chronic blood loss*; Splenomegaly Allergies Active Allergy Reactions Severity Noted Date Comments Penicillins Rash 02/12/2008 documented as of this encounter (statuses as of 12/05/2019) Medications Medication Sig Dispensed Refills Start Date [...] Dosing Unit 5 10/07/2019 Active nystatin (NYSTOP) 758327 UNIT/GM powder Apply topically to affected area [...] as of this encounter (statuses as of 12/05/2019) Active Problems Problem Noted Date Iron deficiency [...] as of this encounter (statuses as of 12/05/2019) Resolved Problems Problem Noted Date Resolved Date [...] 08/19/2016 01/17/2017 Depression with anxiety 08/19/2016 02/14/20 Hepatic cirrhosis [...] pain 01/24/2012 01/17/2017 Genetic Sleep Disorder Research Other*[id number] 05/13/2011 04/07/2016 Obstructive sleep apnea 01/18/2011 12/27/19 [...] as of this encounter (statuses as of 12/05/2019) Immunizations Name Administration Dates Next Due HEP [...] Sign Reading Time Taken Comments Blood Pressure 118/67 12/05/2019 11:47 AM EDT Pulse 62 12/05/2019 11:47 AM EDT Temperature 36.9 C (98.4 F) 12/05/2019 11:47 AM E DT Respiratory Rate 20 12/05/2019 11:47 AM EDT Oxygen Saturation - - Inhaled Oxygen Concentration - - Weight - - Height - - Body Mass Index - - documented in this encounter Nursing Notes * Mary Steve RN - 12/05/2019 2:22 PM EDT The patient tolerated the Venofer infusion well without incident. Goals: patient will remain free from injury Possible barriers to meeting goals: patient uses motorized wheelchair Stability of the patient: Moderately stable - low risk of patient condition declining or worsening Summary regarding today's goals: Met: patient left the office in stable condition, free from injury * Mary Steve RN - 12/05/2019 12:15 PM EDT The patient is in chair 7 today. The patient presents to the office today for Venofer #1/4. The patient has no voiced questions or concerns at this time. Safety and Risk for Injury Patient will remain free from injury. Ensure appropriate safety devices are available. Provide and maintain safe environment. documented in this encounter Plan of Treatment Upcoming Encounters Date Type Specialty Care Team Description 12/19/2019 Hem/Onc Treatment Hematology [place], Chair 10 Hem Onc Sc[address] [place] [address] [phone] 01/02/2020 Hem/Onc Treatment Hematology [place], Chair 10 Hem Onc [address] [place], [place] [address] [phone] 01/16/2020 Hem/Onc Treatment Hematology Oncology [place], Chair 11 Hem Onc [facility] 200 [facility] [address] [phone] 01/27/2020 Office Visit Family Medicine Rajwinder Carter DO [address] [place] [address] [phone] 01/29/2020 Nutrition Services Gastroenterology Melissa Omalley, [place] [address] [place] [address] [place] [id number] 02/26/2020 Office Visit Gastroenterology Lyssa Stout CRNP 132 [facility] [place] [address] [phone] 05/06/2020 Office Visit Gynecology Obstetrics Aman Small, CN [address] [facility] [place] [id number] 06/01/2020 Office Visit Hematology Oncology Tono Sanchez MD 200 [facility], [place] [address] [phone] 09/03/2020 Imaging Radiology Health Maintenance Due Date [...] ONCE PRN Other, Hypersensitivity Reaction, Starting [place] 12/05/19 at 1202, Until Mon12/06/19 at 1201, For 24 hours EPINEPHrine 1 MG/ML inj 0.3 mg 0.3 mg, Intramuscular, ONCE PRN Other, Hypersensitivity Reaction or Anaphylaxis, Starting [place] 12/05/19 at 1202, Until Mon12/06/19 at 1201, For 24 hours hEParin Lock FLUSH 100 UNIT/ML inj 500 Units 500 Units (5 mL), IV Lock, PRN Other, IV Flush, Starting [place] 12/05/19 at 1202, Until Mon12/06/19 at 1201, For 24 hours, Do not flush if lock, PICC, or central line not in place; IV infusing or unable to flush., hydrocortisone na succinate pf (SOLU-CORTEF) inj 100 mg 100 mg, IV Push, ONCE PRN Other, Hypersensitivity Reaction, Starting [place] 12/05/19 at 1202, Until Mon12/06/19 at 1201, For 24 hours NSS infusion 500 mL, Intravenous, at 50 mL/hr, CONTINUOUS, Starting [place] 12/05/19 at 1315, Until [place] 12/05/19 at 2314 Start Infusion 12/05/2019 12:00 PM EDT 500 mL 50 mL/hr sodium chloride 0.9% flush/inj 10 mL 10 mL, IV Push, PRN Other, IV Flush, Starting [place] 12/05/19 at 1202, Until Mon12/06/19 at 1201, For 24 hours, Do not flush if lock, PICC, or central line not in place; IV infusing or unable to flush., Inactive Administered Medications - up to 3 most recent administrations Medication Order MAR Action Action Date Dose Rate Site iron sucrose (VENOFER) 300 mg in NSS 250 mL ivpb 300 mg, IV Piggyback, ONCE, 1 dose, [place] 12/05/19 at 1345, Administer over 90 Minutes Start Infusion 12/05/2019 12:03 PM EDT 300 mg 166.67 mL/hr documented in this encounter Advance Directives Documents on File Type Date Recorded 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
--- OUTSIDE RECORDS SUMMARY | 2023-05-10 22:48 | External Medical Summary | Summary of Care ---
Author Name Unknown Organization [facility] Address [place] [address] Care Team Providers Care Surveillance Monitor Name Role Phone Rajwinder Carter Primary Care [...] of less than 7.0% ([facility]) TAKE 1 TABLET BY MOUTH TWICE [...] Dosing Unit 5 10/07/2019 Active nystatin (NYSTOP) 399615 UNIT/GM powder Apply topically to affected area 3 times a day. 60 g 1 10/16/2019 Active BD PEN NEEDLE MINI U/F 31G X 5 MMIndications:Type 2 diabetes mellitus with hemoglobin A1c goal of less than 7.0% ([facility]) use with basaglar at bedtime 100 [...] dependent 04/08/2019 04/18/2019 detention resident 04/08/2019 05/02/2019 Preop examination 02/21/2019 04/04/2019 [...] pain 01/24/2012 01/17/2017 Genetic Sleep Disorder Research Other*[id number] 05/13/2011 04/07/2016 Obstructive sleep apnea 01/18/2011 12/27/19 [...] Specialty Care Team Description 12/17/2019 Telemedicine Family [facility] Rajwinder Carter, [address] [place] [address] [phone] 12/19/2019 Hem/Onc Treatment Hematology Oncology [place], Chair 10 Hem Onc Sc[address] [place] [address] [phone] 01/02/2020 Hem/Onc Treatment Hematology Oncology [place], Chair 10 Hem Onc [address] [place] [address] [phone] 01/16/2020 Hem/Onc Treatment Hematology Oncology [place], Chair 11 Hem Onc [address] [place] [address] [phone] 01/27/2020 Office Visit Family [facility] Rajwinder Carter DO [address] [place] [address] [phone] 01/29/2020 Nutrition Services Gastroenterology Melissa Omalley RDN [address] [place] [address] [place] [address] [phone] 02/26/2020 Office Visit Gastroenterology Lyssa Stout CRNP [address] [place] [address] [phone] 05/06/2020 Office Visit Gynecology Obstetrics Aman Small CNM [address] [facility] [place] [id number] 06/01/2020 Office Visit Hematology Oncology Tono Sanchez MD 200 [facility], [place] [address] [phone] 09/03/2020 Imaging Radiology Health Maintenance Due Date [...] on File Type Date Recorded 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
--- OUTSIDE RECORDS SUMMARY | 2023-05-10 22:48 | External Medical Summary | Summary of Care ---
Author Name Unknown Organization [facility] Address [place] [address] Care Team Providers Care Mechanical Adjuster Name Role Phone Rajwinder Carter DO Primary Care Provider [phone] Reason for Visit * Reason Comments Hospital Follow-Up Encounter Details Date Type Department Care Team Description 12/15/2019 Telephone [facility] [address] [place], [place] [id number] Rajwinder Carter DO [address] [place] [address] [phone] Hospital Follow-Up Allergies Active Allergy Reactions Severity [...] Dosing Unit 5 10/07/2019 Active nystatin (NYSTOP) 652798 UNIT/GM powder Apply topically to affected area 3 times a day. 60 g 1 10/16/2019 Active BD PEN NEEDLE MINI U/F 31G X 5 MMIndications:Type 2 diabetes mellitus with hemoglobin A1c goal of less than 7.0% ([facility]) use with basaglar at bedtime [...] pain 01/24/2012 01/17/2017 Genetic Sleep Disorder Research Other*[id number] 05/13/2011 04/07/2016 Obstructive sleep apnea 01/18/2011 12/27/19 [...] Telephone Encounter - Michaelle Lindquist LPN - 12/16/2019 9:30 AM EDT Pt scheduled for a telephonic call 12/17/2019 at 9:30 with PCP. * Telephone Encounter - Gabi Meraz LPN - 12/16/2019 8:43 AM EDT Pt returning call for hospital f/u appt. Pt discharged yesterday 4.5.20, Dx pneumonia. Please advise for pt appt. Thank you * Telephone Encounter - Janett Triana OSA - 12/16/2019 8:30 AM EDT Reason for patient's call: patient returning call Caller was transferred to [facility] at the nurse line. * Telephone Encounter - Michaelle Lindquist LPN - 12/16/2019 8:26 AM EDT Attempted to call pt mailbox is full. * Telephone Encounter - Marcelle Rosales OSA - 12/15/2019 11:47 AM EDT Please see call details. documented in this encounter Plan of Treatment Upcoming Encounters Date Type Specialty Care Team Description 12/17/2019 Telemedicine Family Medicine Rajwinder Carter, DO [address] [place] [address] [phone] 12/19/2019 Hem/Onc Treatment Hematology [place]cology [place], Chair 10 Hem Onc Scenery 200 [place] [address] [phone] 01/02/2020 Hem/Onc Treatment Hematology Oncology [place], Chair 10 Hem Onc [address] 200 [place] [address] [phone] 01/16/2020 Hem/Onc Treatment Hematology Oncology [place], Chair 11 Hem Onc Scenery 200 [facility] [place] [address] [phone] 01/27/2020 Office Visit Family Medicine Rajwinder Carter DO [address] [facility] [place] [id number] 01/29/2020 Nutrition Services Gastroenterology Melsisa Omalley RDN [address] [facility] [address] [place] [id number] 02/26/2020 Office Visit Gastroenterology Lyssa Stout CRNP [address] [place] [address] [phone] 05/06/2020 Office Visit Gynecology Obstetrics Aman Samll CNM 400 [facility] [place] [id number] 06/01/2020 Office Visit Hematology Oncology Tono Sanchez MD 200 [facility], [place] [id number] 09/03/2020 Imaging Radiology Health Maintenance Due Date [...] Documents on File Type Date Recorded 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
--- OUTSIDE RECORDS SUMMARY | 2023-05-10 22:49 | External Medical Summary | Summary of Care ---
Author Name Unknown Organization [facility] Address [place] [address] Care Team Providers Care Rolled Ham Lacer Name Role Phone Rajwinder Carter DO Primary Care Provider [phone] Reason for Visit * Reason Comments eRx-Medication Refill Encounter Details Date Type Department Care Team Description 12/04/2019 Refill [place] [address] [place] [address] Rajwinder Carter DO [address] [place] [address] [phone] Sleep disturbances; Type 2 diabetes mellitus with hemoglobin A1c goal of less than 7.0% ([facility]) Allergies Active Allergy Reactions Severity Noted Date Comments Penicillins Rash 02/12/2008 documented as of this encounter (statuses as of 12/04/2019) Medications Medication Sig Dispensed Refills Start Date [...] Dosing Unit 5 10/07/2019 Active nystatin (NYSTOP) 629955 UNIT/GM powder Apply topically to affected area [...] Wheezing. With spacer 16 g 11/06/2019 Active ketoconazole 2 % shampooIndications:S eborrheic dermatitis Apply topically to affected area every 3 days for 28 days. Shampoo twice a week 120 mL 1 11/06/2019 0 Active gabapentin (NEURONTIN) 300 MG Capsule [...] mouth daily. 90 Tab 1 12/04/2019 Active documented as of this encounter (statuses as of 12/04/2019) Active Problems Problem Noted Date Iron deficiency [...] as of this encounter (statuses as of 12/04/2019) Resolved Problems Problem Noted Date Resolved Date [...] pain 01/24/2012 01/17/2017 Genetic Sleep Disorder Research Other*[id number] 05/13/2011 04/07/2016 Obstructive sleep apnea 01/18/2011 12/27/19 [...] as of this encounter (statuses as of 12/04/2019) Immunizations Name Administration Dates Next Due HEP [...] Notes * Telephone Encounter - Danilo Talavera [facility] - 12/04/2019 2:00 PM EDT Refused Prescriptions: Disp Refills escitalopram (LEXAPRO) 20 MG Tablet [Pharm*30 Tab 0 Sig: TAKE 1TABLET BY MOUTH ONCE DAILYRefused By: DANILO TALAVERA for Refusal: Duplicate Request traZODone (DESYREL) 50 MG Tablet [Pharmacy*30 Tab 0 Sig: TAKE 1 TABLET BY MOUTH AT BEDTIME Refused By: DANILO TALAVERA for Refusal: Duplicate Request Dulaglutide (TRULICITY) 1.5 MG/0.5ML SOPN 2 mL 0Sig: inject 1 syringeful under the skin ONCE A WEEKRefused By: DANILO TALAVERA for Refusal:Course of treatment completeReason for Refusal Comment: patient switched to ozempic documented in this encounter Plan of Treatment Upcoming Encounters Date Type Specialty Care Team Description 12/05/2019 Hem/Onc Treatment Hematology [place], Chair 11 Hem Onc Scenery [address] [place] [address] 01/09/2020 Office Visit Gynecology Obstetrics Aman Small, MANA[place] [address] [place] [address] 01/27/2020 Office Visit Family Medicine Rajwinder Carter DO [address] [place] [facility] [address] 01/29/2020 Nutrition Services Gastroenterology Melissa Omalley, [place] [address] [place] [id number] 02/26/2020 Office Visit Gastroenterology Lyssa Stout CRNP 132 [facility] [place] [address] [phone] 06/01/2020 Office Visit Hematology Oncology Tono Sanchez MD 200 [place] [address] [phone] 09/03/2020 Imaging Radiology Health Maintenance Due Date [...] Diagnoses Diagnosis Sleep disturbances Sleep disturbance, unspecified Type 2 diabetes mellitus with hemoglobin A1c goal of less than 7.0% ([facility]) documented in this encounter Advance Directives Documents on File Type Date Recorded Patient Supervisor Home Energy Consultant Expl 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
--- OUTSIDE RECORDS SUMMARY | 2023-05-10 22:49 | External Medical Summary | Summary of Care ---
Author Name Unknown Organization [place] [address] Care Team Providers Care Curer Foam Rubber Name Role Phone Rajwinder Carter DO Primary Care Provider [phone] Reason for Referral * Medication Prior Authorization (Routine) Status Reason Specialty Diagnoses / Procedures Referred By Contact Referred To Contact Pending Review Diagnoses Type 2 diabetes mellitus with hemoglobin A1c goal of less than 7.0% ([facility]) Rajwinder Carter DO [address] [place] [address] Reason for Visit * Reason Comments Med Request Encounter Details Date Type Department Care Team Description 12/04/2019 Telephone [facility] [address] [place] [address] Rajwinder Carter DO [address] [place] [address] Med Request Allergies Active Allergy Reactions Severity Noted [...] less than 7.0% ([facility]) TAKE 1 TABLET BY MOUTH TWICE [...] Dosing Unit 5 10/07/2019 Active nystatin (NYSTOP) 094907 UNIT/GM powder Apply topically to affected area [...] With spacer 16 g 1 11/06/2019 Active ketoconazole 2 % shampooIndications:S eborrheic [...] than 7.0% ([facility]) inject 24 units under the skin [...] less than 7.0% ([facility]) Inject 1 syringeful once weekly 6 [...] pain 01/24/2012 01/17/2017 Genetic Sleep Disorder Research Other*[id number] 05/13/2011 04/07/2016 Obstructive sleep apnea 01/18/2011 12/27/19 [...] Telephone Encounter - Rajwinder Carter DO - 12/04/2019 2:56 PM EDT Rx sent. * Telephone Encounter - Francine Perera RPh - 12/04/2019 1:45 PM EDT Pended RX for trulicity per patient request. May also require a PA depending on when last PA was completed. Thanks, Francine Perera Clinical Pharmacist Telepharmacy 12/04/2019, 1:45 PM * Telephone Encounter - Florinda Stevenson CPhT - 12/04/2019 9:27 AM EDT pharmacy calling asking for new prescription for trulicity 1.5mg-0.75 , insurance will no longer pay for Ozempic Please review Thank you, Florinda Stevenson CPhT Superintendent [employer] Telepharmacy 12/04/2019, 9:29 AM documented in this encounter Plan of Treatment Upcoming Encounters Date Type Specialty Care Team Description 12/05/2019 Hem/Onc Treatment Hematology Oncology [place], Chair 11 Hem Onc [facility] [address] [place] [address] [phone] 01/09/2020 Office Visit Gynecology Obstetrics Aman Small, MANAV [address] [place] [id number] 01/27/2020 Office Visit Family Medicine Rajwinder Carter DO [address], [place] [id number] 01/29/2020 Nutrition Services Gastroenterology Melissa Omalley RDN [address] [place] [address] [place] [id number] 02/26/2020 Office Visit Gastroenterology Lyssa Stout CRNP [address] [place] [address] [phone] 06/01/2020 Office Visit Hematology Oncology Tono Sanchez MD [address] [facility], [place] [address] [phone] 09/03/2020 Imaging Radiology Health Maintenance Due Date [...] Documents on File Type Date Recorded Patient Radiation Control Health Physicist Expl 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
--- OUTSIDE RECORDS SUMMARY | 2023-05-10 22:49 | External Medical Summary | Summary of Care ---
Author Name Unknown Organization [facility] [place] [address] Care Team Providers Care Music Supervisor Name Role Phone Rajwinder Lara DO Primary Care Provider [phone] Reason for Visit * Reason Comments eRx-Medication Refill Encounter Details Date Type Department Care Team Description 12/03/2019 Refill [place] [address] [place] [address] Rajwinder Lara DO [address] [place] [address] [phone] Hypokalemia; Type 2 diabetes mellitus with hemoglobin A1c [...] mouth daily. Every other day 0 Active traZODone (DESYREL) 50 MG TabletIndications:S leep disturbances TAKE 1 TABLET BY MOUTH AT BEDTIME 30 Tab 4 9 Active escitalopram (LEXAPRO) 20 MG Tablet TAKE 1 TABLET BY MOUTH ONCE DAILY 30 Tab 5 9 Active Additional Information Patient taking differently: TAKE 1 TABLET BY MOUTH ONCE DAILY, pt dose is 40mg daily, Reported on 06/06/2019 12:38 PM levothyroxine (LEVOXYL) 150 MCG TabletIndications:A cquired hypothyroidism TAKE 1 TABLET BY MOUTH ONCE DAILY at least 30 minutes prior to breakfast or other meds 30 Tab 10 9 Active MetFORMIN (GLUCOPHAGE) 1000 MG TabletIndications:T ype 2 diabetes mellitus with hemoglobin A1c goal of less than 7.0% ([facility]) TAKE 1 TABLET BY MOUTH TWICE DAILY WITH FOOD 180 Tab 3 9 Active fluticasone (FLONASE) 50 MCG/ACT nasal sprayIndications:Si nus congestion INSTILL 2 SPRAYS INTO EACH NOSTRIL DAILY DIRECTED 16 g 5 9 Active atorvaSTATin (LIPITOR) 40 MG TabletIndications:D yslipidemia, goal LDL below 70 TAKE 1 TABLET BY MOUTH EVERY NIGHT AT BEDTIME 90 Tab 0 9 Active furosemide (LASIX) 20 MG TabletIndications:L [...] Dosing Unit 5 0 Active nystatin (NYSTOP) 463698 UNIT/GM powder Apply topically to affected area [...] With spacer 16 g 1 0 Active ketoconazole 2 % shampooIndications: Seborrheic dermatitis Apply topically to affected area every 3 days for 28 days. Shampoo twice a week 120 mL 1 0 12/04/19 20 Active gabapentin (NEURONTIN) 300 MG Capsule One [...] per day. 100 Each 3 0 Active cyclobenzaprine (FLEXERIL) 10 MG Tablet TAKE 1 TABLET BY MOUTH AT BEDTIME 30 Tab 0 0 Active potassium chloride ER 10 MEQ [...] ONCE DAILY 90 Tab 3 0 Active insulin glargine (LANTUS SOLOSTAR) 100 UNIT/ML SOPNIndications:Typ e 2 diabetes mellitus with hemoglobin A1c goal of less than 7.0% ([facility]) INJECT 24 UNITS UNDER THE SKIN AT BED TIME 15 mL 3 9 12/04/19 20 Discontinued potassium chloride ER 10 MEQ TBCRIndications:Hyp okalemia TAKE 1 TABLET ONCE DAILY WITH FOOD 30 Tab 4 9 12/04/19 20 Discontinued SM ASPIRIN ADULT LOW STRENGTH 81 MG TBEC TAKE 1 TABLET BY MOUTH ONCE DAILY 30 Tab 4 9 12/04/19 20 Discontinued cyclobenzaprine (FLEXERIL) 10 MG Tablet Take 1 Tab by mouth at bedtime. 30 Tab 0 0 12/04/19 20 Discontinued documented as of this encounter [...] pain 01/24/2012 01/17/2017 Genetic Sleep Disorder Research Other*[id number] 05/13/2011 04/07/2016 Obstructive sleep apnea 01/18/2011 12/27/19 [...] Telephone Encounter - Rajwinder Lara DO - 12/04/2019 11:44 AM EDT Signed Prescriptions: Disp Refills cyclobenzaprine (FLEXERIL) 10 MG Tablet 30 Tab 0 Sig: TAKE 1 TABLET BY MOUTH AT BEDTIME Authorizing Provider: RAJWINDER LARA potassium chloride ER 10 MEQ TBCR 90 Tab 1 Sig: TAKE 1 TABLET EVERY DAY WITH FOOD Authorizing Provider: RAJWINDER LARA Ordering User: MINNIE SUH insulin glargine (LANTUS SOLOSTAR) 100 U NI*30 mL 0 Sig: inject 24 units under the skin at bedtime Authorizing Provider: RAJWINDER LARA Ordering User: MINNIE SUH SM ASPIRIN ADULT LOW STRENGTH 81 MG TBEC 90 Tab 3 Sig: TAKE 1 TABLET BY MOUTH ONCE DAILY Authorizing Provider: RAJWINDER LARA Ordering User: MINNIE SUH * Telephone Encounter - Minnie Suh [facility] - 12/04/2019 11:18 AM EDT Pending Prescriptions: Disp Refills cyclobenzaprine (FLEXERIL) 10 MG Tablet [*30 Tab 0 Sig: TAKE 1 TABLET BY MOUTH AT BEDTIME Signed Prescriptions: Disp Refills potassium chloride ER 10 MEQ TBCR 90 Tab 1 Sig: TAKE 1 TABLET EVERY DAY WITH FOOD Authorizing Provider: RAJWINDER LARA Ordering User: MINNIE SUH insulin glarg ine (LANTUS SOLOSTAR) 100 UNI*30 mL 0 Sig: inject 24 units under the skin at bedtime Authorizing Provider: RAJWINDER LARA Ordering User: MINNIE SUH ASPIRIN ADULT LOW STRENGTH 81 MG TBEC 90 Tab 3 Sig: TAKE 1 TABLET BY MOUTH ONCE DAILY Authorizing Provider: RAJWINDER LARA Ordering User: MINNIE SUH * Telephone Encounter - Minnie Suh [facility] - 12/04/2019 11:18 AM EDT Refill pharmacists currently not authorized to approve refills for this class of medication per refill protocol. Please approve if appropriate. Thank you, Minnie Suh, PharmD Clinical Pharmacist TelePharmacy 12/04/19 11:18 AM * Telephone Encounter - Minnie Suh [facility] - 12/04/2019 11:17 AM EDT Pending Prescriptions: Disp Refills cyclobenzaprine (FLEXERIL) 10 MG Tablet [*30 Tab 0 Sig: TAKE 1 TABLET BY MOUTH AT BEDTIME Last Office Visit: 11/25/2019 Next Office Visit: 01/27/2020 Scheduled Provider(s): Rajwinder Lara, DO If no future appointments scheduled, and last appointment is greater than a year ago, please schedule patient for a follow-up appointment Last date the medication was ordered: 11/07/2019 Pharmacy: [id number] [facility] Is this request for a [...] PM HGBA1C 6.9 (H) 11/26/2019 01:31 PM * Telephone Encounter - Minnie Suh [facility] - 12/04/2019 11:13 AM EDT Lantus RX authorized. Zero refills given since Lipid panel due soon. Thank you, Minnie Suh, PharmD Clinical Pharmacist TelePharmacy 12/04/19 11:17 AM documented in this encounter Plan of Treatment Upcoming Encounters Date Type Specialty Care Team Description 12/05/2019 Hem/Onc Treatment Hematology Oncology [place], Chair 11 Hem Onc [place] [address] [place] [address] [phone] 01/09/2020 Office Visit Gynecology Obstetrics Aman Small, CNM [address] [place] [phone] 01/27/2020 Office Visit Family Medicine Rajwinder Lara DO [address] [facility], [place] [phone] 01/29/2020 Nutrition Services Gastroenterology Melissa Omalley, RDN [address] [place] [place] [phone] 02/26/2020 Office Visit [facility]astroenterology [facility]out CR[facility] [address] [facility] [id number] 06/01/2020 Office Visit Hematology Oncology Tono Sanchez MD [address] [facility], [place] [address] [phone] 09/03/2020 Imaging Radiology Health Maintenance Due Date [...] this encounter Visit Diagnoses Diagnosis Hypokalemia Hypopotassemia Type 2 diabetes mellitus with hemoglobin A1c goal of less than 7.0% (H[facility]) documented in this encounter Advance Directives Documents on File Type Date Recorded Patient Tomb Maker Helper Expl 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
--- OUTSIDE RECORDS SUMMARY | 2023-05-10 22:49 | External Medical Summary | Summary of Care ---
Author Name Unknown Organization [place] [address] Care Team Providers Care Seed Corn Production Manager Name Role Phone Rajwinedr Carter Primary Care Provider [phone] Reason for Visit * Reason Comments Pre Cert/Prior Auth venofer Encounter Details Date Type Department Care Team Description 12/03/2019 Telephone Hematology/Oncology Treatment, [place] [address] [place] [address] Tono Sanchez MD [address] [place] [address] [phone] Pre Cert/Prior Auth (venofer) Allergies Active Allergy Reactions Severity Noted Date Comments Penicillins Rash 02/12/2008 documented as of this encounter (statuses as of 12/04/2019) Medications Medication Sig Dispensed Refills Start Date End Date Status CENTRUM SILVER PO TABS 1 tab daily 1 Tab 0 05/25/2012 Active vitamin c (ASCORBIC ACID) 500 MG Tablet Take 500 mg by mouth daily. 0 Active insulin glargine (LANTUS SOLOSTAR) 100 UNIT/ML SOPNIndications:Type 2 diabetes mellitus with hemoglobin A1c goal of less than 7.0% ([facility]) INJECT 24 UNITS UNDER THE SKIN AT BED TIME 15 mL 3 02/22/2019 Active furosemide (LASIX) 20 MG Tablet Take 20 mg by mouth daily. Every other day 0 Active traZODone (DESYREL) 50 MG TabletIndications:Sl eep disturbances TAKE 1 TABLET BY MOUTH AT BEDTIME 30 Tab 4 06/06/2019 Active escitalopram (LEXAPRO) 20 MG Tablet TAKE 1 TABLET BY MOUTH ONCE DAILY 30 Tab 5 06/06/2019 Active Additional Information Patient taking differently: TAKE 1 TABLET BY MOUTH ONCE DAILY, pt dose is 40mg daily, Reported on 06/06/2019 12:38 PM levothyroxine (LEVOXYL) 150 MCG TabletIndications:Ac quired hypothyroidism TAKE 1 TABLET BY MOUTH ONCE DAILY at least 30 minutes prior to breakfast or other meds 30 Tab 10 06/06/2019 Active potassium chloride ER 10 MEQ TBCRIndications:Hypo kalemia TAKE 1 TABLET ONCE DAILY WITH FOOD 30 Tab 4 06/06/2019 Active SM ASPIRIN ADULT LOW STRENGTH 81 MG TBEC TAKE 1 TABLET BY MOUTH ONCE DAILY 30 Tab 4 06/06/2019 Active MetFORMIN (GLUCOPHAGE) 1000 MG TabletIndications:Ty pe [...] Dosing Unit 5 10/07/2019 Active nystatin (NYSTOP) 027506 UNIT/GM powder Apply topically to affected area 3 times a day. 60 g 1 10/16/2019 Active BD PEN NEEDLE MINI U/F 31G X 5 MMIndications:Type 2 diabetes mellitus with hemoglobin A1c goal of less than 7.0% ([facility]) use with basaglar at bedtime 100 Each [...] week 120 mL 1 11/06/2019 0 Active cyclobenzaprine (FLEXERIL) 10 MG Tablet Take 1 Tab by mouth at bedtime. 30 Tab 0 11/07/2019 Active gabapentin (NEURONTIN) 300 MG Capsule One [...] per day. 100 Each 3 11/19/2019 Active documented as of this encounter (statuses [...] pain 01/24/2012 01/17/2017 Genetic Sleep Disorder Research Other*[id number] 05/13/2011 04/07/2016 Obstructive sleep apnea 01/18/2011 12/27/19 [...] Telephone Encounter - Cassie Barboza RN - 12/04/2019 9:58 AM EDT Referral entered. Scheduling: please call patient to schedule 2 hour appt on 503 schedule "venofer 09/14" (Daniel). Thanks! Patient will need venofer every other week x4 if she wants to schedule more than one appt. * Telephone Encounter - Cassie Barboza RN - 12/03/2019 4:24 PM EDT ICD-10: d50.0, r16.1 Start date: 1 week Drugs: venofer Physician: Dr Tono Sanchez, SP documented in this encounter Plan of Treatment Upcoming Encounters Date Type Specialty Care Team Description 01/09/2020 Office Visit Gynecology Obstetrics Aman Small CNM [address] [facility] [place] [address] 01/27/2020 Office Visit Family Medicine [facility]winder [facility] DO [address] [facility] [address] 01/29/2020 Nutrition Services Gastroenterology Melissa Omalley RDN [address] [facility] [place] [address] [place] [address] 02/26/2020 Office Visit Gastroenterology Lyssa Stout CRNP [address] [facility] [place] [address] [phone] 06/01/2020 Office Visit Hematology Oncology Tono Sanchez MD [address] [facility] [place] [address] [phone] 09/03/2020 Imaging Radiology Health Maintenance Due Date [...] on File Type Date Recorded Patient Manager Laboratory Expl 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
--- OUTSIDE RECORDS SUMMARY | 2023-05-10 22:49 | External Medical Summary | Summary of Care ---
Author Name Unknown Organization [facility] [place] [address] Care Team Providers Care Crane Operator Name Role Phone JohnbrianRajwinder thacker Primary Care Provider [phone] Reason for Visit * Reason Comments Patient Assistance Program Encounter Details Date Type Department Care Team Description 12/04/2019 Pharmacy Pharmacy, [facility] [place] [address] [place] [address] [place], Pharmacy [facility] [employer] [address] [place] [address] [phone] Iron deficiency anemia due to chronic blood [...] other meds 30 Tab 10 06/06/2019 Active MetFORMIN (GLUCOPHAGE) 1000 MG TabletIndications:Ty [...] Dosing Unit 5 10/07/2019 Active nystatin (NYSTOP) 870994 UNIT/GM powder Apply topically to affected area [...] ([facility]) inject 24 units under the skin at bedtime 30 mL 0 12/04/2019 Active SM ASPIRIN ADULT LOW STRENGTH 81 MG TBEC TAKE 1 TABLET BY MOUTH ONCE DAILY 90 Tab 3 12/04/2019 Active documented as of this encounter [...] pain 01/24/2012 01/17/2017 Genetic Sleep Disorder Research Other*[id number] 05/13/2011 04/07/2016 Obstructive sleep apnea 01/18/2011 12/27/19 [...] as of this encounter Progress Notes * Jill Lindquist OSA - 12/04/2019 11:45 AM EDT A new referral was received from Connie Marvin via Referral Entry [facility] staff will review and call patient to discuss available assistance. Coverage: BS. [facility] RX: Venofer Pace: NA Provider: Daniel Avalos-there are no financial assistance programs when pt has insurance. [employer]eder 12/04/2019, 12:46 PM documented in this encounter Plan of Treatment Upcoming Encounters Date Type Specialty Care Team Description 12/05/2019 Hem/Onc Treatment Hematology Oncology [place], Chair 11 Hem Onc [address] [place] [address] [phone] 01/09/2020 Office Visit Gynecology Obstetrics Aman Small, MANAV [address] [facility] [place] [address] 01/27/2020 Office Visit Family Medicine Rajwinder Carter DO [address] [facility] [place] [address] 01/29/2020 Nutrition Services Gastroenterology Melissa Omalley RDN [address] [facility] [address] [facility] [address] [place] [address] 02/26/2020 Office Visit Gastroenterology [facility]sa [facility]out CRNP [address] [facility] [address] [phone] 06/01/2020 Office Visit Hematology Oncology Tono Sanchez MD [address] [place] [address] [phone] 09/03/2020 Imaging Radiology Health Maintenance Due Date [...] Documents on File Type Date Recorded Patient Clerk Checker Expl 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
--- OUTSIDE RECORDS SUMMARY | 2023-05-10 22:49 | External Medical Summary | Summary of Care ---
Author Name Unknown Organization [place] [address] Care Team Providers Care Assistant Director Name Role Phone Rajwinder Lara DO Primary Care Provider [phone] Reason for Referral * Medication Prior Authorization (Routine) Status Reason Specialty Diagnoses / Procedures Referred By Contact Referred To Contact Pending Review Diagnoses Recurrent major depressive disorder, in partial remission (HCC) Maribeth Munguia, [facility] [address] [facility] [place] [address] Reason for Visit * Reason Comments Medication Refill Encounter Details Date Type Department Care Team Description 12/04/2019 Refill [place] [address] [place], [place] [id number] Rajwinder Lara DO [address] [place] [address] [phone] Chronic pain syndrome*; Type 2 diabetes mellitus with hemoglobin A1c goal of less than 7.0% ([facility]); Hypokalemia; Acquired hypothyroidism; Sleep disturbances; DDD (degenerative disc disease), lumbar; Fibromyalgia; Recurrent major depressive disorder, in partial remission [...] 07/04/2019 Active fluticasone (FLONASE) 50 MCG/ACT nasal sprayIndications:Si nus congestion INSTILL 2 SPRAYS INTO EACH NOSTRIL DAILY DIRECTED 16 g 5 08/01/2019 Active atorvaSTATin (LIPITOR) 40 MG TabletIndications:D yslipidemia, goal LDL below 70 TAKE 1 TABLET BY MOUTH EVERY NIGHT AT BEDTIME 90 Tab 0 08/12/2019 Active furosemide (LASIX) 20 MG TabletIndications:L ocalized [...] Dosing Unit 5 10/07/2019 Active nystatin (NYSTOP) 045079 UNIT/GM powder Apply topically to affected area [...] g 1 11/06/2019 Active ketoconazole 2 % shampooIndications: Seborrheic dermatitis [...] 100 Each 3 11/19/2019 Active levothyroxine (LEVOXYL) 150 MCG TabletIndications:A cquired hypothyroidism TAKE 1 TABLET BY MOUTH ONCE DAILY at least 30 minutes prior to breakfast or other meds 90 Tab 1 12/04/2019 Active traZODone (DESYREL) 50 MG TabletIndications:S leep disturbances Take 1 Tab by mouth at bedtime. 90 Tab 1 12/04/2019 Active escitalopram (LEXAPRO) 20 MG TabletIndications:R ecurrent major depressive disorder, in partial remission (HCC) Take 1 Tab by mouth daily. 90 Tab 1 12/04/2019 Active traZODone (DESYREL) 50 MG TabletIndications:S leep disturbances TAKE 1 TABLET BY MOUTH AT BEDTIME 30 Tab 4 06/06/2019 0 Discontinue d(Refill) escitalopram (LEXAPRO) 20 MG Tablet TAKE 1 TABLET BY MOUTH ONCE DAILY 30 Tab 5 06/06/2019 0 Discontinue d(Refill) levothyroxine (LEVOXYL) 150 MCG TabletIndications:A cquired hypothyroidism TAKE 1 TABLET BY MOUTH ONCE DAILY at least 30 minutes prior to breakfast or other meds 30 Tab 10 06/06/2019 0 Discontinue d(Refill) documented as of this [...] pain 01/24/2012 01/17/2017 Genetic Sleep Disorder Research Other*[id number] 05/13/2011 04/07/2016 Obstructive sleep apnea 01/18/2011 12/27/19 [...] Miscellaneous Notes * Telephone Encounter - Maribeth Munguia, [facility] - 12/04/2019 1:34 PM EDT Signed Prescriptions: Disp Refills levothyroxine (LEVOXYL) 150 MCG Tablet 90 Tab 1 Sig: TAKE 1 TABLET BY MOUTH ONCE DAILY at least 30 minutes prior to breakfast or other medsAuthorizing Provider: RAJWINDER LARA User: MARIBETH MUNGUIA traZODone (DESYREL) 50 MG Tablet 90 Tab 1 Sig: Take 1 Tab by mouth at bedtime.Authorizing Provider: RAJWINDER LARA User: MARIBETH MUNGUIA escitalopram (LEXAPRO) 20 MG Tablet 90 Tab 1 Sig: Take 1 Tab by mouth daily.Authorizing Provider: RAJWINDER LARA User: MARIBETH MUNGUIA WRefused Prescriptions: Disp Refills insulin glargine (LANTUS SOLOSTAR) 100 UNI*15 mL 3 Sig: INJECT 24 UNITS UNDER THE SKIN AT BED TIMERefused By: MARIBETH MUNGUIA for Refusal: Duplicate Request potassium chloride ER 10 MEQTBCR 30 Tab 4 Sig: TAKE 1 TABLET ONCE DAILY WITH FOODRefused By: PRUSINSKI, MARIBETH WReason for Refusal: Duplicate Request cyclobenzaprine (FLEXERIL) 10 MG Tablet 30 Tab 0 Sig: Take 1 Tab by mouth at bedtime.Refused By: MARIBETH MUNGUIAeason for Refusal: Duplicate Request aspirin enteric coated (SM ASPIRIN ADULT L*30 Tab 4 Sig: Take 1 Tab by mouth daily.Refused By: MARIBETH MUNGUIAeason for Refusal: Duplicate Request * Telephone Encounter - Florinda Stevenson [facility] - 12/04/2019 9:18 AM EDT Pending Prescriptions: Disp Refills insulin glargine (LANTUS SOLOSTAR) 100 UN*15 mL 3 Sig: INJECT 24 UNITS UNDER THE SKIN AT BED TIME potassium chloride ER 10 MEQ TBCR 30 Tab 4 Sig: TAKE 1 TABLET ONCE DAILY WITH FOOD cyclobenzaprine (FLEXERIL) 10 MG Tablet 30 Tab 0 Sig: Take 1 Tab by mouth at bedtime. aspirin enteric coated (SM ASPIRIN ADULT *30 Tab 4 Sig: Take 1 Tab by mouth daily. levothyroxine (LEVOXYL) 150 MCG Tablet 30 Tab 10 Sig: TAKE 1 TABLET BY MOUTH ONCE DAILY at least 30 minutes prior to breakfast or other meds traZODone (DESYREL) 50 MG Tablet 30 Tab 4 Sig: Take 1 Tab by mouth at bedtime. escitalopram (LEXAPRO) 20 MG Tablet 30 Tab 5 Sig: Take 1 Tab by mouth daily. Last Office Visit: 11/25/2019 Next Office Visit: 01/27/2020 Scheduled Provider(s): Rajwinder Lara, DO If no future appointments scheduled, and last appointment is greater than a year ago, please schedule patient for a follow-up appointment Last date the medication was ordered: 02/22/2019 Pharmacy: [facility] [id number] Is this request for a controlled [...] Team Description 12/05/2019 Hem/Onc Treatment Hematology Oncology [place], Chair [address] [address] [phone] 01/09/2020 Office Visit Gynecology Obstetrics Aman Small CNM [address] [facility] [place] [id number] 01/27/2020 Office Visit Family Medicine Rajwinder Lara DO [address] [place] [address] 01/29/2020 Nutrition Services Gastroenterology Melissa Omalley RDN [address] [place], [place] [address] 02/26/2020 Office Visit Gastroenterology Lyssa Stout CRNP 132 [facility] [place] [address] [phone] 06/01/2020 Office Visit Hematology Oncology Tono Sanchez MD [address] [place] [address] [phone] 09/03/2020 Imaging Radiology Health Maintenance Due Date [...] this encounter Visit Diagnoses Diagnosis Chronic pain syndrome- Primary Type 2 diabetes mellitus with hemoglobin A1c goal of less than 7.0% (HCC) Hypokalemia Hypopotassemia Acquired hypothyroidism Unspecified hypothyroidism Sleep disturbances Sleep disturbance, unspecified DDD (degenerative disc disease), lumbar Degeneration of lumbar or lumbosacral intervertebral disc Fibromyalgia Mylagia and myositis, unspecified Recurrent major depressive disorder, in partial remission (HCC) documented in this encounter Advance Directives Documents on File Type Date Recorded Patient Mud Worker Expl 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
--- OUTSIDE RECORDS SUMMARY | 2023-05-10 22:49 | External Medical Summary | Summary of Care ---
Author Name Unknown Organization [place] [address] Care Team Providers Care Thumb Sewer Name Role Phone Rajwinder Carter Primary Care Provider [phone] Reason for Visit * Reason Comments Pre Cert/Prior Auth venofer Encounter Details Date Type Department Care Team Description 12/03/2019 Telephone Hematology/Oncology Treatment, [place] [address] [place] [address] Tono Sanchez MD [address] [place] [address] [phone] Pre Cert/Prior Auth (venofer) Allergies Active Allergy [...] of less than 7.0% ([facility]) INJECT 24 UNITS UNDER THE [...] Dosing Unit 5 10/07/2019 Active nystatin (NYSTOP) 906452 UNIT/GM powder Apply topically to affected area [...] pain 01/24/2012 01/17/2017 Genetic Sleep Disorder Research Other*[id number] 05/13/2011 04/07/2016 Obstructive sleep apnea 01/18/2011 12/27/19 [...] Chair 11 Hem Onc [place] [address] [place] [address] [phone] 01/09/2020 Office Visit Gynecology Obstetrics Aman Small CNM 400 [facility] [place] [address] 01/27/2020 Office Visit Family Medicine [facility]winder Carter DO [address] [facility] [address] 01/29/2020 Nutrition Services Gastroenterology Melissa Omalley RDN 310 [facility] [address] [place] [address] 02/26/2020 Office Visit Gastroenterology Lyssa Stout CRNP [address] [place] [address] [phone] 06/01/2020 Office Visit Hematology Oncology Tono Sanchez MD 200 [place] [address] [phone] 09/03/2020 Imaging Radiology Health Maintenance Due Date [...]
--- OUTSIDE RECORDS SUMMARY | 2023-05-10 22:49 | External Medical Summary | Summary of Care ---
Author Name Unknown Organization [facility] [place] [address] Care Team Providers Care Mold Designer Name Role Phone Rajwinder Carter Primary Care Provider [phone] Reason for Visit * Reason Comments Encounter Created in Error Encounter Details Date Type Department Care Team Description 11/27/2019 Procedure Only Endoscopy, [facility] [address] [place] [facility] [place] [address] Hunter Xiong MD [address] [place] [address] Encounter created in error Allergies Active Allergy Reactions Severity Noted Date [...] of less than 7.0% ([facility]) TAKE 1 TABLET BY [...] Dosing Unit 5 10/07/2019 Active nystatin (NYSTOP) 059819 UNIT/GM powder Apply topically to affected area [...] pain 01/24/2012 01/17/2017 Genetic Sleep Disorder Research Other*[id number] 05/13/2011 04/07/2016 Obstructive sleep apnea 01/18/2011 12/27/19 [...] as of this encounter Progress Notes * Hunter Xiong MD - 12/04/2019 11:18 AM EDT This encounter was created in error. 12/04/2019, 11:18 AM, Hunter Xiong MD documented in this encounter Plan of Treatment Upcoming Encounters Date Type Specialty Care Team Description 12/05/2019 Hem/Onc Treatment Hematology Oncology [place], Chair 11 Hem Onc [facility] [address] [place] [address] [phone] 01/09/2020 Office Visit Gynecology Obstetrics Aman Small, CNM [address] [place] [id number] 01/27/2020 Office Visit Family Medicine Rajwinder Carter DO [address] [place], [place] [address] 01/29/2020 Nutrition Services Gastroenterology Melissa Omalley, [place]TH[place] [address] [place], [place] [address] 02/26/2020 Office Visit Gastroenterology Lyssa Stout CRNP 132 [place] [address] [phone] 06/01/2020 Office Visit Hematology Oncology Tono Sanchez MD [address] [facility] [address] [phone] 09/03/2020 Imaging Radiology Health Maintenance Due Date [...] Procedure Name Priority Date/Time Associated Diagnosis Comments UPPER GI ENDOSCOPY 11/27/2019 documented in this encounter Results * UPPER GI ENDOSCOPY (11/27/2019) Specimen Narrative Performed At documented in this encounter Visit Diagnoses Diagnosis Encounter Created In Error- Primary documented in this encounter Advance Directives Documents on File Type Date Recorded Patient Green Marketer Expl 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
--- OUTSIDE RECORDS SUMMARY | 2023-05-10 22:49 | External Medical Summary | Summary of Care ---
Author Name Unknown Organization [place] [address] Care Team Providers Care Cashier Payments Received Name Role Phone Rajwinder Carter Primary Care Provider [phone] Reason for Visit * Reason Comments Pre Cert/Prior Auth venofer Encounter Details Date Type Department Care Team Description 12/03/2019 Telephone Hematology/Oncology Treatment, [place] [address] [place] [address] Tono Sanchez MD 200 [place] [address] [phone] Pre Cert/Prior Auth (venofer) Allergies Active Allergy [...] 7.0% ([facility]) INJECT 24 UNITS UNDER THE SKIN AT [...] Dosing Unit 5 10/07/2019 Active nystatin (NYSTOP) 408296 UNIT/GM powder Apply topically to affected area [...] pain 01/24/2012 01/17/2017 Genetic Sleep Disorder Research Other*[id number] 05/13/2011 04/07/2016 Obstructive sleep apnea 01/18/2011 12/27/19 [...] 1 week Drugs: venofer Physician: Dr Tono Sanchez SP documented in this encounter Plan of Treatment Upcoming Encounters Date Type Specialty Care Team Description 01/09/2020 Office Visit Gynecology Obstetrics Aman Small, MANAV [address] [facility] [place] [address] 01/27/2020 Office Visit Family Medicine Rajwinder Carter DO [address] [place] [address] 01/29/2020 Nutrition Services Gastroenterology Melissa Omalley RDN 310 [facility] [address] [place] [id number] 02/26/2020 Office Visit Gastroenterology Lyssa Stout CRNP [address] [facility] [address] [phone] 06/01/2020 Office Visit Hematology Oncology Tono Sanchez MD 200 [place] [address] [phone] 09/03/2020 Imaging Radiology Health Maintenance Due Date [...] on File Type Date Recorded Patient Billet Inspector Expl 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
--- OUTSIDE RECORDS SUMMARY | 2023-05-10 22:50 | External Medical Summary | Summary of Care ---
Author Name Unknown Organization [facility] Address [place] [address] Care Team Providers Care Spareribs Trimmer Name Role Phone Rajwinder Carter DO Primary Care Provider [phone] Reason for Visit * Reason Comments Appointment Advice Encounter Details Date Type Department Care Team Description 12/02/2019 Telephone [facility] [address] [place] [address] Rajwinder Carter DO [address] [place], [place] [address] Appointment; Advice Allergies Active Allergy Reactions Severity Noted Date Comments Penicillins Rash 02/12/2008 documented as of this encounter (statuses as of 12/02/2019) Medications Medication Sig Dispensed Refills Start Date End Date Status CENTRUM SILVER PO TABS 1 tab daily 1 Tab 0 05/25/2012 Active vitamin c (ASCORBIC ACID) 500 MG Tablet Take 500 mg by mouth daily. 0 Active insulin glargine (LANTUS SOLOSTAR) 100 UNIT/ML SOPNIndications:Type 2 diabetes mellitus with hemoglobin A1c goal of less than 7.0% ([facility]) INJECT 24 UNITS UNDER THE SKIN AT [...] less than 7.0% ([facility]) TAKE 1 TABLET [...] Dosing Unit 5 10/07/2019 Active nystatin (NYSTOP) 736561 UNIT/GM powder Apply topically to affected area [...] as of this encounter (statuses as of 12/02/2019) Active Problems Problem Noted Date Thrombocytopenia 05/02/2019 Gastroesophageal reflux disease 04/08/20 19 [...] as of this encounter (statuses as of 12/02/2019) Resolved Problems Problem Noted Date Resolved Date [...] pain 01/24/2012 01/17/2017 Genetic Sleep Disorder Research Other*[id number] 05/13/2011 04/07/2016 Obstructive sleep apnea 01/18/2011 12/27/19 [...] as of this encounter (statuses as of 12/02/2019) Immunizations Name Administration Dates Next Due HEP [...] Telephone Encounter - Dominique Kan LPN - 12/02/2019 12:27 PM EDT Pt Cough unable to get sputum out and SOB while laying flat. Pt denies any fever. Pt states that she coughs so much she gaps for air. Pt has not picked up rx as ordered from ER. Pt states that her cough seems to be getting worse. Pt states she coughs and her chest muscles hurt. Pt states that she did have a appt this am but the office canceled it. Pt will get rx this afternoon from ER. Please advise. * Telephone Encounter - Imelda Galvan OSA - 12/02/2019 12:22 PM EDT Reason for patient's call: coughing, chest pain, sob Caller was transferred to dominique at the nurse line. * Telephone Encounter - Michaelle Lindquist LPN - 12/02/2019 10:11 AM EDT Returned a call to pt. Pt c/o ongoing non productive cough. Pt states that when she lays down it isworse. Advised pt to evaluate when she lays down. Pt states that when she sets up the cough is better. Dr Carter is aware. Advised pt to call if sx worsen. * Telephone Encounter - Patti White OSA - 12/02/2019 9:47 AM EDT Patient called wanting to speak w/ Jovana again about a cough that she has- Didn't ask her about this. Please call her back at [phone] * Telephone Encounter - Jovana Lambert RN - 12/02/2019 9:01 AM EDT Spoke to patient per Dr Carter Patient feeling better some pain chest but better Has not picked up meds they should be in today and they will get them Will call for problems Advised not to come in due to Covid 19 Crisis documented in this encounter Plan of Treatment Upcoming Encounters Date Type Specialty Care Team Description 12/03/2019 Office Visit Hematology Oncology Tono Sanchez MD 200 [facility] [place] [address] [phone] 01/09/2020 Office Visit Gynecology Obstetrics Aman Small, MANAV [address] [place] [id number] 01/27/2020 Office Visit Family Medicine Rajwinder Carter DO [address] [facility] [place] [address] 01/29/2020 Nutrition Services Gastroenterology Melissa Omalley, [place] [address] [place] [address] 02/26/2020 Office Visit Gastroenterology Lyssa Stout CRNP [address] [facility] [address] [phone] 09/03/2020 Imaging Radiology Health Maintenance Due Date [...] Documents on File Type Date Recorded Patient Forms Analysis Manager Expl 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
--- OUTSIDE RECORDS SUMMARY | 2023-05-10 22:50 | External Medical Summary | Summary of Care ---
Author Name Unknown Organization [facility] Address [place] [address] Care Team Providers Care Developmental Psychologist Name Role Phone Rajwinder Carter DO Primary Care Provider [phone] Reason for Visit * Reason Comments Appointment Advice Encounter Details Date Type Department Care Team Description 12/02/2019 Telephone [facility] [address] [place] [address] Rajwinder Carter DO [address] [place], [place] [phone] Appointment; Advice Allergies Active Allergy Reactions Severity [...] less than 7.0% ([facility]) INJECT 24 UNITS UNDER THE [...] Dosing Unit 5 10/07/2019 Active nystatin (NYSTOP) 811596 UNIT/GM powder Apply topically to affected area [...] pain 01/24/2012 01/17/2017 Genetic Sleep Disorder Research Other*[id number] 05/13/2011 04/07/2016 Obstructive sleep apnea 01/18/2011 12/27/19 [...] Encounter - Michaelle Lindquist LPN - 12/02/2019 3:51 PM EDT Spoke with pt she states that she has no fever and has had this cough for a long time. Pt states she p/u her medications that were perscribed to her at the last ER visit. Pepcid and Sucralfate. * Telephone Encounter - Rajwinder Carter DO - 12/02/2019 2:19 PM EDT Any fever? Any other symptoms? She was fine when Jovana talked to her this morning? How long has this gone on for? * Telephone Encounter - Dominique Kan LPN [...] about this. Please call her back at [phone] * Telephone Encounter - Jovana Lambert, UMA - 12/02/2019 9:01 AM EDT Spoke to [...] Tono Sanchez MD [address] [place] [address] [phone] 01/09/2020 Office Visit Gynecology Obstetrics Aman Small CNM 400 [facility] [place] [address] 01/27/2020 Office Visit Family Medicine Rajwinder Carter DO [address] [place] [address] 01/29/2020 Nutrition Services Gastroenterology Melissa Omalley RDN [address] [facility] [address] [place] [address] 02/26/2020 Office Visit Gastroenterology Lyssa Stout CRNP 132 [facility] [place] [address] [phone] 09/03/2020 Imaging Radiology Health Maintenance Due Date [...] Documents on File Type Date Recorded Patient Camp Nurse Expl 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
--- OUTSIDE RECORDS SUMMARY | 2023-05-10 22:50 | External Medical Summary | Summary of Care ---
Author Name Unknown Organization [facility] Address [place] [address] Care Team Providers Care Human Resource Statistician Name Role Phone Rajwinder Carter DO Primary Care Provider [phone] Reason for Visit * Reason Comments Appointment Advice Encounter Details Date Type Department Care Team Description 12/02/2019 Telephone [facility] [address] [place] [address] Rajwinder Carter DO [address] [place], [place] [id number] Appointment; Advice Allergies Active Allergy Reactions Severity [...] than 7.0% ([facility]) INJECT 24 UNITS UNDER THE SKIN [...] than 7.0% ([facility]) TAKE 1 TABLET BY MOUTH [...] Dosing Unit 5 10/07/2019 Active nystatin (NYSTOP) 812200 UNIT/GM powder Apply topically to affected area [...] pain 01/24/2012 01/17/2017 Genetic Sleep Disorder Research Other*[id number] 05/13/2011 04/07/2016 Obstructive sleep apnea 01/18/2011 12/27/19 [...] about this. Please call her back at [phone] * Telephone Encounter - Jovana Lambert, UMA [...] Tono Sanchez MD 200 [facility], [place] [address] 01/09/2020 Office Visit Gynecology Obstetrics Aman Small CNM [address] [place] [id number] 01/27/2020 Office Visit Family Medicine Rajwinder Carter DO [address] [place] [address] 01/29/2020 Nutrition Services Gastroenterology Melissa Omalley RDN [address] [place] [id number] 02/26/2020 Office Visit Gastroenterology Lyssa Stout CRNP 132 [facility] [place] [address] [phone] 09/03/2020 Imaging Radiology Health Maintenance Due Date [...] Documents on File Type Date Recorded Patient Search Marketing Specialist Expl 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
--- OUTSIDE RECORDS SUMMARY | 2023-05-10 22:50 | External Medical Summary | Summary of Care ---
Author Name Unknown Organization [place] [address] Care Team Providers Care Sand Control Worker Name Role Phone Rajwinder Carter Primary Care Provider [phone] Reason for Visit * Reason Comments Precert Future venofer Encounter Details Date Type Department Care Team Description 12/03/2019 Telephone Hematology/Oncology Treatment, [place] [address] [place] [address] Tono Sanchez MD [address] [place] [address] [phone] Precert Future (venofer) Allergies Active Allergy Reactions Severity Noted Date Comments Penicillins Rash 02/12/2008 documented as of this encounter (statuses as of 12/03/2019) Medications Medication Sig Dispensed Refills Start Date End Date Status CENTRUM SILVER PO TABS 1 tab daily 1 Tab 0 05/25/2012 Active vitamin c (ASCORBIC ACID) 500 MG Tablet Take 500 mg by mouth daily. 0 Active insulin glargine (LANTUS SOLOSTAR) 100 UNIT/ML SOPNIndications:Type 2 diabetes mellitus with hemoglobin A1c goal of less than 7.0% ([facility]) INJECT 24 UNITS UNDER THE SKIN AT [...] 7.0% ([facility]) TAKE 1 TABLET BY MOUTH TWICE DAILY [...] Dosing Unit 5 10/07/2019 Active nystatin (NYSTOP) 649319 UNIT/GM powder Apply topically to affected area [...] as of this encounter (statuses as of 12/03/2019) Active Problems Problem Noted Date Iron deficiency [...] as of this encounter (statuses as of 12/03/2019) Resolved Problems Problem Noted Date Resolved Date [...] pain 01/24/2012 01/17/2017 Genetic Sleep Disorder Research Other*[id number] 05/13/2011 04/07/2016 Obstructive sleep apnea 01/18/2011 12/27/19 [...] as of this encounter (statuses as of 12/03/2019) Immunizations Name Administration Dates Next Due HEP [...] Visit Gynecology Obstetrics Aman Small CNM [address] [facility] [place] [id number] 01/27/2020 Office Visit Family Medicine Rajwinder Carter DO [address] [place] [address] 01/29/2020 Nutrition Services Gastroenterology Melissa Omalley RDN 310 [facility] [id number] 02/26/2020 Office Visit [facility]astroenterology Lyssa Stout [facility] [address] [phone] 06/01/2020 Office Visit Hematology Oncology Tono Sanchez MD 200 [facility] [place] [address] 09/03/2020 Imaging Radiology Health [...] Documents on File Type Date Recorded Patient Miller Head Wet Process Expl 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
--- OUTSIDE RECORDS SUMMARY | 2023-05-10 22:50 | External Medical Summary | Summary of Care ---
Author Name Unknown Organization [facility] Address [facility] [place] [address] Care Team Providers Care Pharmacognosy Teacher Name Role Phone JohnbrianRajwinder thacker Primary Care Provider [phone] Encounter Details Date Type Department Care Team Description 12/03/2019 Orders Only Hematology/Oncology Treatment, [place] [address] [place] [address] Tono Sanchez MD [address] [place] [address] [phone] Allergies Active Allergy Reactions Severity Noted Date [...] A1c goal of less than 7.0% ([facility]) INJECT 24 UNITS UNDER THE SKIN AT [...] Dosing Unit 5 10/07/2019 Active nystatin (NYSTOP) 520870 UNIT/GM powder Apply topically to affected area 3 times a day. 60 g 1 10/16/2019 Active BD PEN NEEDLE MINI U/F 31G X 5 MMIndications:Type 2 diabetes mellitus with hemoglobin A1c goal of less than 7.0% ([facility]) use with basaglar at bedtime 100 Each [...] pain 01/24/2012 01/17/2017 Genetic Sleep Disorder Research Other*[id number] 05/13/2011 04/07/2016 Obstructive sleep apnea 01/18/2011 12/27/19 [...] Visit Gynecology Obstetrics Aman Small, MANAV [address] [place] [id number] 01/27/2020 Office Visit Family Medicine Rajwinder Carter DO [address] [place] [address] 01/29/2020 Nutrition Services Gastroenterology Melissa Omalley RDN [address] [place] [address] [place] [address] 02/26/2020 Office Visit [facility]enterology [facility]out [facility] [address] 06/01/2020 Office Visit Hematology Oncology Tono Sanchez MD 200 [place] [address] [phone] 09/03/2020 Imaging Radiology Health Maintenance Due Date [...] on File Type Date Recorded 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
--- OUTSIDE RECORDS SUMMARY | 2023-05-10 22:50 | External Medical Summary | Summary of Care ---
Author Name Unknown Organization [place] [address] Care Team Providers Care Brusher Tender Name Role Phone Rajwinder Carter DO Primary Care Provider [phone] Reason for Visit * Reason Comments NEW PATIENT Pt here regarding an emia * Evaluate & Treat - Unlimited Visits (Within 10 days (routine)) Status Reason Specialty Diagnoses / Procedures Referred By Contact Referred To Contact Pending Review Specialty Services Required Hematology Diagnoses Anemia, unspecified type Cirrhosis of liver without ascites, unspecified hepatic cirrhosis type (HCC) Rajwinder Carter DO [address] [place] [address] Encounter Details Date Type Department Care Team Description 12/03/2019 Office Visit Hematology/Oncology [facility] [address] [place] [address] Tono Sanchez MD [address] [place] [address] [phone] Iron deficiency anemia due to chronic blood [...] A1c goal of less than 7.0% (HCC) INJECT 24 UNITS UNDER THE SKIN AT [...] Dosing Unit 5 10/07/2019 Active nystatin (NYSTOP) 971503 UNIT/GM powder Apply topically to affected area [...] of 12/03/2019) Active Problems Problem Noted Date Thrombocytopenia 05/02/2019 [...] pain 01/24/2012 01/17/2017 Genetic Sleep Disorder Research Other*[id number] 05/13/2011 04/07/2016 Obstructive sleep apnea 01/18/2011 12/27/19 [...] Sign Reading Time Taken Comments Blood Pressure 102/68 12/03/2019 12:07 PM EDT Pulse 68 12/03/2019 12:07 PM EDT Temperature 36.7 C (98 F) 12/03/2019 12:07 PM EDT Respiratory Rate 16 12/03/2019 12:07 PM EDT Oxygen Saturation 97% 12/03/2019 12:07 PM EDT Inhaled Oxygen Concentration - - Weight 127.5 kg (281 lb) 12/03/2019 12:07 PM EDT Height 149.9 cm (4' 11") 12/03/2019 12:07 PM EDT Body Mass Index 56.76 12/03/2019 12:07 PM EDT documented in this encounter Progress Notes * Tono Sanchez MD - 12/03/2019 12:15 PM EDT RYLAND SHAW MR # [id number] :1955 64-year-old female, REASON FOR CONSULTATION: Consultation for Ryland Shaw requested by Dr. Rajwinder Carter for evaluation and discussion of treatment options for anemia. Date of Consutatiion:12/03/2019 DIAGNOSIS: -pancytopenia related to underlying cirrhosis of liver and splenomegaly -iron deficiency anemia. CURRENT TREATMENT: -she is on oral iron replacement therapy twice a day -planning to start intravenous iron in the form of Venofer to correct the iron deficiency. PREVIOUS. TREATMENT: -she received 1 unit of PRBC in 11/2019 DIAGNOSTIC WORKUP: She is referred to hematology for evaluation of the anemia, I I reviewed her medical records, also reviewed her medical records from [facility]. She has underlying cirrhosis of liver, has evidence of iron deficiency for the last 1 year, Ferritin level was less than 10 earlier in December 2018, she was on oral iron replacement therapy once a day,lately increase to twice a day. She was admitted at [facility] in November 2019, she received 1 [...] leg edema, she is on diuretic treatment. INTERVAL HISTORY: She has come the clinic for the initial evaluation, accompanied by her in the office. Has chronic bilateral leg edema, ambulating with the help of the motorized scooter, no new cardiac or pulmonary symptoms, some tiredness present, black color stool after starting oral iron treatment noted, she denies any bleeding from the sites. No significant trouble swallowing. No fever, no new pulmonary symptoms. Tolerated oral iron well. REVIEW OF SYSTEMS: GENERAL: No recent change in weight, weakness and fatigue, no fever, sweats or chills. SKIN: No skin rash, no bruising. HEAD: Intermittent headache, no dizziness. EYES: No recent change in the vision, no diplopia, EARS: No earache no tinnitus, NOSE: No epistaxis, No nasal discharge or stuffiness, MOUTH: No sores, no dysphagia, no hoarseness of voice, NECK: No lumps, No swelling in thyroid area. No stiffness. PULMONARY: No cough, shortness of breath +, no hemoptysis, no chest pain, No wheezing. CARDIOVASCULAR: No anginal chest pain, no PND, no orthopnea. No palpitation, leg edema +. No syncope. GASTROINTESTINAL: No abdominal pain, no nausea or vomiting. No diarrhea, No constipation. Black tarry stools. No abdominal distention. UROLOGIC: No burning urination. No hematuria. MUSCULOSKELETAL: No joint pain, No joint swelling, no muscle weakness. HEMATOLOGIC: anemia, no bleeding disorder, No bruising. history of blood transfusion +. NEUROLOGIC: No seizures, no focal weakness, no speech difficulty, No memory disturbances. Ttinglingand numbness of the extremities. PSYCHIATRIC: No depression. No anxiety. No psychosis. Past Medical History: Diagnosis Date Chronic hypoxemic [...] bx, repeat 10 yrs/[facility] DENTAL SURGERY PROCEDURE NEC wisdom teeth x 4 DILATION AND CURETTAGE (D&C) EGD, FLEXIBLE, DIAGNOSTIC 10/04/2016 gastritis/[facility] EGD, FLEXIBLE, DIAGNOSTIC 01/11/2018 eso varices, retained food, repeat 1 yr/[facility] PELVIS/HIP JOINT SURGERY NEC teenager aid in walking REPAIR/GRAFT ACHILLES TENDON age 40 aid in walking Current Outpatient Medications Medication Sig Dispense Refill Blood Glucose Monitoring Suppl (BLOOD GLUCOSE MONITOR [...] 2 times a day. 60 Tab 5 cyclobenzaprine (FLEXERIL) 10 MG Tablet Take 1 Tab by mouth at bedtime. 30 Tab 0 gabapentin (NEURONTIN) 300 MG Capsule [...] or Wheezing. With spacer 16 g 1 ketoconazole 2 % shampoo Apply topically to affected area every 3 days for 28 days. Shampoo twice aweek 120 mL 1 BD PEN NEEDLE MINI U/F 31G X 5 MM use with basaglar at bedtime 100 Each 10 nystatin (NYSTOP) 606199 UNIT/GM powder Apply topically to affected area [...] TWICE DAILY WITH FOOD 180 Tab 3 escitalopram (LEXAPRO) 20 MG Tablet TAKE 1 TABLET BY MOUTH ONCE DAILY (Patient taking differently: TAKE 1 TABLET BY MOUTH ONCE DAILY, pt dose is 40mg daily) 30 Tab 5 levothyroxine (LEVOXYL) 150 MCG Tablet TAKE 1 TABLET BY MOUTH ONCE DAILY at least 30 minutes prior to breakfast or other meds 30 Tab 10 potassium chloride ER 10 MEQ TBCR TAKE 1 TABLET ONCE DAILY WITH FOOD 30 Tab 4 SM ASPIRIN ADULT LOW STRENGTH 81 MG TBEC TAKE 1 TABLET BY MOUTH ONCE DAILY 30 Tab 4 traZODone (DESYREL) 50 MG Tablet TAKE 1 TABLET BY MOUTH AT BEDTIME 30 Tab 4 furosemide (LASIX) 20 MG Tablet Take 20 mg by mouth daily. Every other day insulin glargine (LANTUS SOLOSTAR) 100 UNIT/ML SOPN INJECT 24 UNITS UNDER THE SKIN AT BED TIME 15 mL 3 vitamin c (ASCORBIC ACID) 500 MG Tablet Take 500 mg by mouth daily. 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 There were no vitals taken for this visit. Constitutional: Patient is alert, cooperative and oriented x 3. Well built woman, Patient is in no acute distress. HEENT: No icterus, no pallor, Throat and pharynx normal. Sinuses are non-tender. Neck: Supple and without lymphadenopathy or masses. No JVD. No Palpable supraclavicular lymph nodes. Lungs: Clear to auscultation. Bilateral symmetric air entry. No wheezing or rhonchi. Cardiovascular: Normal heart sounds, no murmurs.Regular rate and rhythm. Abdomen: soft, nontender, no hepatomegaly, no splenomegaly. Bowel sounds are normal. Neurological: No gross focal neurological deficit; she does not walk at home Extremities: No finger clubbing, No cyanosis. No leg edema. Skin:: No skin rash. SPINE: No spinal or paraspinal tenderness. LABS: -WBC 3004, H&H of 9.3/31.8, MCV 98, Platelet count of 88,000 (11/26/2019) -M spike > negative -Folic acid > > 20 -Vitamin B12 > 554 -Ferritin level > 10.6 -Serum iron: 67, TIBC 400, iron saturation 17%. IMAGING: CT abdomen and pelvis (09/09/2019 at [facility]: 1. Bilateral nephrolithiasis. No ureteral calculi or hydronephrosis. 2. No bowel obstruction. Moderate amount of stool within the colon and rectum. 3. Cirrhosis with mild splenomegaly. Small collaterals. CT chest (11/28/2019 at [facility]) 1. No evidence of pulmonary embolus. No acute intrathoracic pathology. 2. Cardiomegaly with evidence of elevated right heart pressure. Minimal volume overload. No erma pulmonary edema. 3. Nodular morphology of the liver consistent with fibrosis. This could either represent primary cirrhosis or congestive hepatopathy. ASSESSMENT AND PLAN: 64-year-old female, She has pancytopenia related to the splenomegaly, related to the cirrhosis of liver. Platelet countis likely to stay in the lower range, typically Platelet count would stay between 50,000-100,000 range. Iron deficiency anemia, she has esophageal varices, she had some nonbleeding varices in the last upper GI endoscopic evaluation. She has iron deficient for the last 1 year, on oral iron, lately increase to twice a day. She did receive 1 unit PRBC in November 2019. I reviewed with her and her regarding the previous blood workup findings, I would consider for intravenous iron to correct the iron deficiency. Would like to give her IV iron in the form of Venofer at 300 mg once every other week x4. She has poor venous access, will see how we manage IV access. Once she completes 4 IV iron treatment, will check CBCD of Ferritin, iron profile about 1 month after the last IV iron treatment I am planning to see her back in the clinic in about 6 months. Thanks for the consult. Dr. Tono Sanchez Hem/Onc (This note was completed using the dictation program Fluency Direct. As such, there may be misspellings, word substitutions, or other variations that should not change the essence of the clinical content of this encounter note. If there is need for further clarification, please direct questions to the provider listed above.) documented in this encounter Nursing Notes * Bella Ramires LPN - 12/03/2019 12:09 PM EDT Patient identifed by name and birthdate Do you have any concerns about pain management for today's visit? No Living Will or Advance Directive for Health Care as noted on the problem list. [facility] is a way you can talk to your provider on line through e-mail. Would you like to sign up? I can activate it for you? DECLINES Filed Vitals: 12/03/19 1207 BP: 102/68 Pulse: 68 Resp: 16 Temp: 36.7 C (98 F) TempSrc: Oral SpO2: 97% Weight: 127.5 kg (281 lb) Height: (!) 1.499 m (4' 11") documented in this encounter Plan of Treatment Upcoming Encounters Date Type Specialty Care Team Description 01/09/2020 Office Visit Gynecology Obstetrics Aman Small, CNM [address] [place] [id number] 01/27/2020 Office Visit Family Medicine Rajwinder Carter DO [address] [facility], [place] [id number] 01/29/2020 Nutrition Services Gastroenterology Melissa Omalley, SAMANTHA [address] [place] [address] [place] [id number] 02/26/2020 Office Visit [facility]astroenterology Lyssa Stout CRNP [address] [facility] [address] [phone] 06/01/2020 Office Visit Hematology Oncology Tono Sanchez MD 200 [facility], [place] [id number] 09/03/2020 Imaging Radiology Health Maintenance Due Date [...] Documents on File Type Date Recorded Patient Esthetician/Spa Coordinator Expl 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
--- OUTSIDE RECORDS SUMMARY | 2023-05-10 22:50 | External Medical Summary | Summary of Care ---
Author Name Unknown Organization [facility] Address [place] [address] Care Team Providers Care Gang Supervisor Name Role Phone Rajwinder Carter DO Primary Care Provider [phone] Reason for Visit * Reason Comments Appointment Advice Encounter Details Date Type Department Care Team Description 12/02/2019 Telephone [facility] [address] [place] [address] Rajwinder Carter DO [address] [place], [place] [id number] Appointment; Advice Allergies Active Allergy Reactions Severity [...] less than 7.0% ([facility]) INJECT 24 UNITS UNDER THE [...] less than 7.0% ([facility]) TAKE 1 TABLET BY MOUTH [...] Dosing Unit 5 10/07/2019 Active nystatin (NYSTOP) 333649 UNIT/GM powder Apply topically to affected area 3 times a day. 60 g 1 10/16/2019 Active BD PEN NEEDLE MINI U/F 31G X 5 MMIndications:Type 2 diabetes mellitus with hemoglobin A1c goal of less than 7.0% ([facility]) use with basaglar at bedtime [...] pain 01/24/2012 01/17/2017 Genetic Sleep Disorder Research Other*[id number] 05/13/2011 04/07/2016 Obstructive sleep apnea 01/18/2011 12/27/19 [...] Telephone Encounter - Rajwinder Carter DO - 12/03/2019 8:15 AM EDT Would advise that she start medications as prescribed. Nothing different for now. * Telephone Encounter - Michaelle Lindquist LPN [...] chest pain, sob Caller was transferred to [facility] at the nurse line. * Telephone Encounter [...] about this. Please call her back at [phone] * Telephone Encounter - Jovana Lambert, UMA [...] MD 200 [place] [address] [phone] 01/09/2020 Office Visit Gynecology Obstetrics Aman Small CNM [address] [facility] [address] 01/27/2020 Office Visit Family Medicine Rajwinder Carter DO [address] [place] [address] 01/29/2020 Nutrition Services Gastroenterology Melissa Omalley, [place] [address] [place] [address] [place] [address] 02/26/2020 Office Visit Gastroenterology Lyssa Stout CRNP [address] [place] [address] [phone] 09/03/2020 Imaging Radiology Health Maintenance Due Date [...] on File Type Date Recorded Patient Client Manager Large Law Expl 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
--- OUTSIDE RECORDS SUMMARY | 2023-05-10 22:51 | External Medical Summary | Summary of Care ---
Author Name Unknown Organization [facility] Address [place] [address] Care Team Providers Care Drier Name Role Phone Rajwinder Carter DO Primary Care Provider [phone] Reason for Visit * Reason Comments Appointment Encounter Details Date Type Department Care Team Description 12/02/2019 Telephone [facility] [address] [place] [address] Rajwinder Carter DO [address] [place] [address] Appointment Allergies Active Allergy Reactions [...] less than 7.0% ([facility]) INJECT 24 UNITS UNDER THE [...] Dosing Unit 5 10/07/2019 Active nystatin (NYSTOP) 174998 UNIT/GM powder Apply topically to affected area [...] pain 01/24/2012 01/17/2017 Genetic Sleep Disorder Research Other*[id number] 05/13/2011 04/07/2016 Obstructive sleep apnea 01/18/2011 12/27/19 [...] Tono Sanchez MD 200 [facility], [place] [id number] 01/09/2020 Office Visit Gynecology Obstetrics Aman Small CNM [address] [facility] [place] [phone] 01/27/2020 Office Visit Family Medicine Rajwinder Carter DO [address] [place], [place] [address] 01/29/2020 Nutrition Services Gastroenterology Melissa Omalley RDN [address] [place] [address] [place] [id number] 02/26/2020 Office Visit [facility]astroenterology Lyssa Stout CRNP [address] [facility] [address] [phone] 09/03/2020 Imaging Radiology Health Maintenance Due Date [...] on File Type Date Recorded Patient Ship Pilot Expl 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
--- OUTSIDE RECORDS SUMMARY | 2023-05-10 22:51 | External Medical Summary | Summary of Care ---
Author Name Unknown Organization [place] [address] Care Team Providers Care Privacy Attorney Name Role Phone Rajwinder Carter Primary Care Provider [phone] Reason for Visit * Reason Comments NEW PATIENT APPT CONFIRMED WITH PATIENT Encounter Details Date Type Department Care Team Description 12/02/2019 Telephone Hematology/Oncology [facility] [address] [place] [address] Tono Sanchez MD [address] [place] [address] NEW PATIENT (APPT CONFIRMED WITH PATIENT) Allergies Active Allergy Reactions Severity Noted Date [...] than 7.0% ([facility]) INJECT 24 UNITS UNDER [...] than 7.0% ([facility]) TAKE 1 TABLET BY [...] Dosing Unit 5 10/07/2019 Active nystatin (NYSTOP) 323704 UNIT/GM powder Apply topically to affected area 3 times a day. 60 g 1 10/16/2019 Active BD PEN NEEDLE MINI U/F 31G X 5 MMIndications:Type 2 diabetes mellitus with hemoglobin A1c goal of less than 7.0% ([facility]) use with basaglar at [...] pain 01/24/2012 01/17/2017 Genetic Sleep Disorder Research Other*[id number] 05/13/2011 04/07/2016 Obstructive sleep apnea 01/18/2011 12/27/19 [...] Oncology Tono Sanchez MD 200 [place] [address] [phone] 01/09/2020 Office Visit Gynecology Obstetrics Aman Small, BOOM [address] [place] [phone] 01/27/2020 Office Visit Family Medicine Rajwinder Carter DO [address] [place] [address] 01/29/2020 Nutrition Services Gastroenterology Melissa Omalley, [place] [address] [place] [address] 02/26/2020 Office Visit [facility]astroenterology [facility] Stout CRNP [facility] [address] [phone] 09/03/2020 Imaging Radiology Health Maintenance Due Date [...] on File Type Date Recorded Patient Med Aide Expl 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
--- OUTSIDE RECORDS SUMMARY | 2023-05-10 22:51 | External Medical Summary | Summary of Care ---
Author Name Unknown Organization [facility] Address [place] [address] Care Team Providers Care Product Design Manager Name Role Phone Rajwinder Carter DO Primary Care Provider [phone] Reason for Visit * Reason Comments Appointment Advice Encounter Details Date Type Department Care Team Description 12/02/2019 Telephone [facility] [address] [place] [address] Rajwinder Carter DO [address], [place] [phone] Appointment; Advice Allergies Active Allergy Reactions Severity [...] 7.0% ([facility]) INJECT 24 UNITS UNDER THE SKIN [...] 7.0% ([facility]) TAKE 1 TABLET BY MOUTH TWICE [...] Dosing Unit 5 10/07/2019 Active nystatin (NYSTOP) 532670 UNIT/GM powder Apply topically to affected area [...] pain 01/24/2012 01/17/2017 Genetic Sleep Disorder Research Other*[id number] 05/13/2011 04/07/2016 Obstructive sleep apnea 01/18/2011 12/27/19 [...] encounter Miscellaneous Notes * Telephone Encounter - Patti White OSA - 12/02/2019 9:47 AM EDT Patient called wanting to speak w/ Jovana again about a cough that she has- Didn't ask her about this. Please call her back at [phone] * Telephone Encounter - Jovana Lambert RN [...] Hematology Oncology Tono Sanchez MD [address] [place] [address] [phone] 01/09/2020 Office Visit Gynecology Obstetrics Aman Small CNM 400 [facility] [place] [address] 01/27/2020 Office Visit Family Medicine Rajwinder Carter DO [address] [place] [address] 01/29/2020 Nutrition Services Gastroenterology Melissa Omalley RDN 310 [facility] [place] [address] [place] [address] 02/26/2020 Office Visit Gastroenterology Lyssa Stout CRNP [address] [place] [address] [phone] 09/03/2020 Imaging Radiology Health Maintenance Due Date [...] Documents on File Type Date Recorded 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
--- OUTSIDE RECORDS SUMMARY | 2023-05-10 22:51 | External Medical Summary | Summary of Care ---
Author Name Unknown Organization [facility] Address [place] [address] Care Team Providers Care Magazine Filler Name Role Phone Rajwinder Carter DO Primary Care Provider [phone] Reason for Visit * Reason Comments Appointment Advice Encounter Details Date Type Department Care Team Description 12/02/2019 Telephone [facility] [address] [place] [address] Rajwinder Carter DO [address] [place], [place] [phone] Appointment; Advice Allergies Active Allergy Reactions Severity [...] Dosing Unit 5 10/07/2019 Active nystatin (NYSTOP) 852778 UNIT/GM powder Apply topically to affected area [...] pain 01/24/2012 01/17/2017 Genetic Sleep Disorder Research Other*[id number] 05/13/2011 04/07/2016 Obstructive sleep apnea 01/18/2011 12/27/19 [...] about this. Please call her back at [phone] * Telephone Encounter - Jovana Lambert RN [...] Visit Hematology Oncology Tono Sanchez MD [address] [place] [address] [phone] 01/09/2020 Office Visit Gynecology Obstetrics Aman Small CNM 400 [facility] [place] [address] 01/27/2020 Office Visit Family Medicine Rajwinder Carter DO [address] [place] [address] 01/29/2020 Nutrition Services Gastroenterology Melissa Omalley RDN 310 [facility] [place] [address] [place] [address] 02/26/2020 Office Visit Gastroenterology Lyssa Stout CRNP [address] [place] [address] [phone] 09/03/2020 Imaging Radiology Health Maintenance Due Date [...] Documents on File Type Date Recorded Patient Diet Supervisor Expl 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
--- OUTSIDE RECORDS SUMMARY | 2023-05-10 22:51 | External Medical Summary | Summary of Care ---
Author Name Unknown Organization [facility] Address [place] [address] Care Team Providers Care Mat Inspector Name Role Phone Rajwinder Carter DO Primary Care Provider [phone] Reason for Visit * Reason Comments Appointment Advice Encounter Details Date Type Department Care Team Description 12/02/2019 Telephone Located [facility] [address] [place] [address] Rajwinder Carter DO [address] [place], [place] [phone] Appointment; Advice Allergies Active Allergy Reactions Severity [...] less than 7.0% ([facility]) INJECT 24 UNITS UNDER THE SKIN AT [...] less than 7.0% ([facility]) TAKE 1 TABLET [...] Dosing Unit 5 10/07/2019 Active nystatin (NYSTOP) 628072 UNIT/GM powder Apply topically to affected area [...] pain 01/24/2012 01/17/2017 Genetic Sleep Disorder Research Other*[id number] 05/13/2011 04/07/2016 Obstructive sleep apnea 01/18/2011 12/27/19 [...] chest pain, sob Caller was transferred to [facility] at the nurse line. * Telephone Encounter [...] about this. Please call her back at [phone] * Telephone Encounter - Jovana Lambert, UMA [...] Visit Hematology Oncology Tono Sanchez MD [address] [place] [address], [place] [address] [phone] 01/09/2020 Office Visit Gynecology Obstetrics Aman Small, CNM [address] [place] [id number] 01/27/2020 Office Visit Family Medicine Rajwinder Carter DO [address] [facility], [place] [address] 01/29/2020 Nutrition Services Gastroenterology Melissa Omalley, SAMANTHA [address] [place] [phone] 02/26/2020 Office Visit Gastroenterology Lyssa Stout, ZAK [address] [facility] [employer] [place] [address] [phone] 09/03/2020 Imaging Radiology Health Maintenance Due Date [...] on File Type Date Recorded 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
--- OUTSIDE RECORDS SUMMARY | 2023-05-10 22:51 | External Medical Summary | Summary of Care ---
Author Name Unknown Organization [facility] Address [place] [address] Care Team Providers Care Berry Planter Name Role Phone Rajwinder Carter DO Primary Care Provider [phone] Reason for Visit * Reason Comments Appointment Advice Encounter Details Date Type Department Care Team Description 12/02/2019 Telephone [facility] [address] [place] [address] Rajwinder Carter DO [address] [place], [place] [phone] Appointment; Advice Allergies Active Allergy Reactions Severity [...] than 7.0% ([facility]) INJECT 24 UNITS UNDER THE [...] Dosing Unit 5 10/07/2019 Active nystatin (NYSTOP) 185177 UNIT/GM powder Apply topically to affected area [...] pain 01/24/2012 01/17/2017 Genetic Sleep Disorder Research Other*[id number] 05/13/2011 04/07/2016 Obstructive sleep apnea 01/18/2011 12/27/19 [...] about this. Please call her back at [phone] * Telephone Encounter - Jovana Lambert RN [...] Visit Hematology Oncology Tono Sanchez MD 200 [place] [address] 01/09/2020 Office Visit Gynecology Obstetrics Aman Small CNM [address] [place], [place] [address] [address] 01/27/2020 Office Visit Family Medicine [facility] [address] [facility] [address] 01/29/2020 Nutrition Services Gastroenterology Melissa Omalley, [place] [address] [place] [address] [phone] 02/26/2020 Office Visit [facility]astroenterology [facility]sa Stout [facility] [place] [address] [phone] 09/03/2020 Imaging Radiology Health Maintenance Due Date [...] on File Type Date Recorded 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
--- OUTSIDE RECORDS SUMMARY | 2023-05-10 22:52 | External Medical Summary | Summary of Care ---
Author Name Unknown Organization [facility] Address [place] [address] Care Team Providers Care Certified Industrial Hygienist Name Role Phone Rajwinder Carter Primary Care Provider [phone] Encounter Details Date Type Department Care Team Description 11/27/2019 Scan Encounter Unspecified Department <No scans attached> Allergies Active Allergy Reactions Severity Noted Date Comments Penicillins Rash 02/12/2008 documented as of this encounter (statuses as of 11/28/2019) Medications Medication Sig Dispensed Refills Start Date [...] Dosing Unit 5 10/07/2019 Active nystatin (NYSTOP) 652050 UNIT/GM powder Apply topically to affected area [...] as of this encounter (statuses as of 11/28/2019) Active Problems Problem Noted Date Thrombocytopenia 05/02/2019 [...] as of this encounter (statuses as of 11/28/2019) Resolved Problems Problem Noted Date Resolved Date [...] pain 01/24/2012 01/17/2017 Genetic Sleep Disorder Research Other*[id number] 05/13/2011 04/07/2016 Obstructive sleep apnea 01/18/2011 12/27/19 [...] as of this encounter (statuses as of 11/28/2019) Immunizations Name Administration Dates Next Due HEP [...] Tono Sanchez MD 200 [facility], [place] [phone] 01/09/2020 Office Visit Gynecology Obstetrics Aman Small, CNM [address] [place] [phone] 01/27/2020 Office Visit Family Medicine Rajwinder Carter DO [address] [place] [facility] [address] 01/29/2020 Nutrition Services Gastroenterology Melissa Omalley, SAMANTHA [address] [place] [id number] 02/26/2020 Office Visit [facility]enterology [facility]out CRNP [facility] [address] [phone] 09/03/2020 Imaging Radiology Health Maintenance Due Date [...] Documents on File Type Date Recorded 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
--- OUTSIDE RECORDS SUMMARY | 2023-05-10 22:52 | External Medical Summary | Summary of Care ---
Author Name Unknown Organization [facility] Address [place] [address] Care Team Providers Care Utility System Operator Name Role Phone Rajwinder Carter Primary Care Provider [phone] Encounter Details Date Type Department Care Team Description 11/22/2019 Scan Encounter Unspecified Department <No scans attached> Allergies Active Allergy Reactions Severity Noted Date Comments Penicillins Rash 02/12/2008 documented as of this encounter (statuses as of 11/27/2019) Medications Medication Sig Dispensed Refills Start Date End Date Status CENTRUM SILVER PO TABS 1 tab daily 1 Tab 0 05/25/2012 Active vitamin c (ASCORBIC ACID) 500 MG Tablet Take 500 mg by mouth daily. 0 Active insulin glargine (LANTUS SOLOSTAR) 100 UNIT/ML SOPNIndications:Type 2 diabetes mellitus with hemoglobin A1c goal of less than 7.0% ([facility]) INJECT 24 UNITS UNDER THE [...] Dosing Unit 5 10/07/2019 Active nystatin (NYSTOP) 967601 UNIT/GM powder Apply topically to affected area 3 times a day. 60 g 1 10/16/2019 Active BD PEN NEEDLE MINI U/F 31G X 5 MMIndications:Type 2 diabetes mellitus with hemoglobin A1c goal of less than 7.0% ([facility]) use with basaglar at bedtime [...] as of this encounter (statuses as of 11/27/2019) Active Problems Problem Noted Date Thrombocytopenia 05/02/2019 [...] as of this encounter (statuses as of 11/27/2019) Resolved Problems Problem Noted Date Resolved Date [...] pain 01/24/2012 01/17/2017 Genetic Sleep Disorder Research Other*[id number] 05/13/2011 04/07/2016 Obstructive sleep apnea 01/18/2011 12/27/19 [...] as of this encounter (statuses as of 11/27/2019) Immunizations Name Administration Dates Next Due HEP [...] Encounters Date Type Specialty Care Team Description 11/27/2019 Procedure Only Endoscopy Hunter Xiong MD 132 [facility] [place] [address] 12/03/2019 Office Visit Hematology Oncology oTno Sanchez MD 200 [facility], [place] [address] 01/09/2020 Office Visit Gynecology Obstetrics Aman Small, CNM [address] [place] [address] [phone] 01/27/2020 Office Visit Family Medicine Rajwinder Carter DO [address] [place] [address] 01/29/2020 Nutrition Services Gastroenterology Melissa Omalley RDN [address] [place] [id number] 02/26/2020 Office Visit Gastroenterology Lyssa Stout CRNP 132 [facility] [place] [address] 09/03/2020 Imaging Radiology Health Maintenance Due Date [...] on File Type Date Recorded 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
--- OUTSIDE RECORDS SUMMARY | 2023-05-10 22:52 | External Medical Summary ---
Author Name Unknown Address [facility] [place] [address] Phone Organization K0G:[facility] 132 [facility] [place] [address] Laboratory Report Ordering Provider Test Date Status JANE FLORES 11/26/2019 13:31:00 Final Observation Date Value Abnormality Reference (Units ) Status WBC, Total 11/26/2019 13:55 3.48 Below low normal 4.00- 10.80 (K/uL) Final RBC 11/26/2019 13:55 3.22 Below low normal 3.85-5 .15 (M/uL) Final Hemoglobin 11/26/2019 13:55 9.3 Below low normal 12.0- 15.3 (g/dL) Final HCT 11/26/2019 13:55 31.8 Below low normal 36.0-4 5.2 (%) Final MCV 11/26/2019 13:55 98.8 Above high normal 81.5- 97.5 (fL) Final MCH 11/26/2019 13:55 28.9 27.0-34.0 (pg ) Final MCHC 11/26/2019 13:55 29.2 Below low normal 32.0-3 6.0 (g/dL) Final RDW 11/26/2019 13:55 18.9 Above high normal 11.5- 15.5 (%) Final Platelets 11/26/2019 13:55 88 Below low normal 140-40 0 (K/uL) Final MPV 11/26/2019 13:55 12.6 Above high normal 6.6-1 1.1 (fL) Final Segs 11/26/2019 15:35 59.3 40-75 (%) Fin al Lymphs % 11/26/2019 15:35 24.7 18-42 (%) Fin al Monos 11/26/2019 15:35 8.3 1-11 (%) Fin al Eosinophils 11/26/2019 15:35 6.6 Above high normal 0-6 (%) Final Basos 11/26/2019 15:35 1.1 0-2 (%) Fin al Neutrophils Bld 11/26/2019 15:35 2.06 1.8-7.7 (K/uL) Final Lymphs, absolute 11/26/2019 15:35 0.86 Below low normal 1.0-4.8 (K/uL) Final Monos, Abs 11/26/2019 15:35 0.29 0.0-1.1 (K/u L) Final Eos, Abs 11/26/2019 15:35 0.23 0.0-0.7 (K/uL ) Final Basos, Abs 11/26/2019 15:35 0.04 0.0-0.2 (K/u L) Final Performing Location [address] [place] [address]
--- OUTSIDE RECORDS SUMMARY | 2023-05-10 22:52 | External Medical Summary ---
Author Name Unknown Address [facility] [place] [address] Phone Organization K01:[place] [address] [place] [id number] Laboratory Report Ordering Provider Test Date Status JANE FLORES 11/26/2019 13:31:00 Final Observation Date Value Abnormality Reference (Units ) Status HbA1C 11/26/2019 17:34 6.9 Above high normal 4.0-5 .6 (%) Final Performing Location [place] [address] [address] [place] [id number]
--- OUTSIDE RECORDS SUMMARY | 2023-05-10 22:52 | External Medical Summary | Summary of Care ---
Author Name Unknown Organization [facility] Address [place] [address] Care Team Providers Care Information Systems Consultant Name Role Phone Rajwinder Carter DO Primary Care Provider [phone] Reason for Visit * Reason Comments Emergency Department Follow-Up er- follo w up Encounter Details Date Type Department Care Team Description 11/29/2019 Telephone [facility] [address] [place] [address] Rajwinder Carter DO [address] [place], [place] [phone] Emergency Department Follow-Up (er- follow... Allergies Active Allergy Reactions Severity Noted Date Comments Penicillins Rash 02/12/2008 documented as of this encounter (statuses as of 11/29/2019) Medications Medication Sig Dispensed Refills Start Date End Date Status CENTRUM SILVER PO TABS 1 tab daily 1 Tab 0 05/25/2012 Active vitamin c (ASCORBIC ACID) 500 MG Tablet Take 500 mg by mouth daily. 0 Active insulin glargine (LANTUS SOLOSTAR) 100 UNIT/ML SOPNIndications:Type 2 diabetes mellitus with hemoglobin A1c goal of less than 7.0% ([facility]) INJECT 24 UNITS UNDER THE SKIN [...] than 7.0% ([facility]) TAKE 1 TABLET BY MOUTH TWICE [...] Dosing Unit 5 10/07/2019 Active nystatin (NYSTOP) 113566 UNIT/GM powder Apply topically to affected area 3 times a day. 60 g 1 10/16/2019 Active BD PEN NEEDLE MINI U/F 31G X 5 MMIndications:Type 2 diabetes mellitus with hemoglobin A1c goal of less than 7.0% ([facility]) use with basaglar at bedtime 100 [...] as of this encounter (statuses as of 11/29/2019) Active Problems Problem Noted Date Thrombocytopenia 05/02/2019 [...] as of this encounter (statuses as of 11/29/2019) Resolved Problems Problem Noted Date Resolved Date [...] pain 01/24/2012 01/17/2017 Genetic Sleep Disorder Research Other*[id number] 05/13/2011 04/07/2016 Obstructive sleep apnea 01/18/2011 12/27/19 [...] as of this encounter (statuses as of 11/29/2019) Immunizations Name Administration Dates Next Due HEP [...] Telephone Encounter - Linnette Mcdonald LPN - 11/29/2019 10:58 AM EDT Emergency Department Follow Up: When was patient seen: 11.28.2019 Which ED: [facility] What were they seen for: Chest pain What testing did they have done: cxr, ekg and lab work What did ED think was wrong (dx): Unaware Any new medications prescribed: Unaware How is patient feeling today: States that the chest pain occurs off and on but does not have any pain at this time. Patient concerns today: No Appt scheduled 12.02.2019 with PCP * Telephone Encounter - Corrie Lindquist OSA - 11/29/2019 10:56 AM EDT Reason for patient's call: Patient calling in to schedule an ER follow up appointment. Patient states that she was seen in [facility] ER on 11/27 for chest pain. Caller was transferred to [facility] at the nurse line. documented in this encounter Plan of Treatment Upcoming Encounters Date Type Specialty Care Team Description 12/02/2019 Office Visit Family Medicine Rajwinder Carter DO [address] [place] [address] 12/03/2019 Office Visit Hematology Oncology Tono Sanchez MD 200 [place] [address] [phone] 01/09/2020 Office Visit Gynecology Obstetrics Aman Small CNM [address] [place] [address] [place] [address] [phone] 01/27/2020 Office Visit Family Medicine [facility]inder [facility] [address] [facility] [address] 01/29/2020 Nutrition Services Gastroenterology Melissa Omalley, [place] [address] [place] [id number] 02/26/2020 Office Visit Gastroenterology Lyssa Stout CRNP 132 [facility] [place] [address] [phone] 09/03/2020 Imaging Radiology Health Maintenance Due Date [...] Documents on File Type Date Recorded 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
--- OUTSIDE RECORDS SUMMARY | 2023-05-10 22:52 | External Medical Summary | Summary of Care ---
Author Name Unknown Organization [facility] Address [place] [address] Care Team Providers Care Fourdrinier Machine Tender Name Role Phone JohnbrianRajwinder thacker Primary Care Provider [phone] Reason for Visit * Reason Comments Re-Check 3 month follow up - NAFLD, GERD Encounter Details Date Type Department Care Team Description 11/26/2019 Office Visit Gastroenterology, [facility] [address] [facility] [place] [address] Lyssa Stout CRNP [address] [facility] [place] [address] [phone] Other cirrhosis of liver (HCC)*; Anemia, unspecified type Allergies Active Allergy Reactions Severity Noted Date Comments Penicillins Rash 02/12/2008 documented as of this encounter (statuses as of 11/26/2019) Medications Medication Sig Dispensed Refills Start Date End Date Status CENTRUM SILVER PO TABS 1 tab daily 1 Tab 0 05/25/2012 Active vitamin c (ASCORBIC ACID) 500 MG Tablet Take 500 mg by mouth daily. 0 Active insulin glargine (LANTUS SOLOSTAR) 100 UNIT/ML SOPNIndications:Type 2 diabetes mellitus with hemoglobin A1c goal of less than 7.0% ([facility]) INJECT 24 UNITS UNDER THE SKIN [...] Dosing Unit 5 10/07/2019 Active nystatin (NYSTOP) 438927 UNIT/GM powder Apply topically to affected area [...] as of this encounter (statuses as of 11/26/2019) Active Problems Problem Noted Date Thrombocytopenia 05/02/2019 [...] as of this encounter (statuses as of 11/26/2019) Resolved Problems Problem Noted Date Resolved Date [...] pain 01/24/2012 01/17/2017 Genetic Sleep Disorder Research Other*[id number] 05/13/2011 04/07/2016 Obstructive sleep apnea 01/18/2011 12/27/19 [...] as of this encounter (statuses as of 11/26/2019) Immunizations Name Administration Dates Next Due HEP [...] Sign Reading Time Taken Comments Blood Pressure 115/82 11/26/2019 12:55 PM EDT Pulse 68 11/26/2019 12:55 PM EDT Temperature 36.2 C (97.2 F) 11/26/2019 12:55 PM E DT Respiratory Rate - - Oxygen Saturation - - Inhaled Oxygen Concentration - - Weight - - Height - - Body Mass Index - - documented in this encounter Progress Notes * Lyssa Stout CRNP - 11/26/2019 1:04 PM EDT DATE OF SERVICE: 11/26/19 CC: F/U NALFD cirrhosis HPI: 09/20/16 - [...] for f/u cirrhosis. 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 [...] month while walking w walker. Went to [facility] ED on 07/11 for kidney stones. Denies any fever, chills, CP, SOB, abd pain, distension, jaundice. [place] she lost some weight. Noted less edema on legs. 09/24/18: Pt here for f/u. Was at [facility] but discharged. Notes in ED visit recently 08/24/18 and by PCP notes that she is having some stressors at home, preferred when she was placedin detention where she's getting food and meds regularly. [...] dark tarry stools. 08/26/19: Pt went to [facility] ED on 08/04/19 for abd, chest pain. Labs, EKG, CXR CT abd scan reviewed -unrevealing. She denies increased swelling on legs, abd areas. Bowel move every other day, black incolon but not tarry. No signs of worsening anemia on recent [facility] labs. She denies any n/v, CP, SOB today. She does notice increased indigestion, on Protonix 20mg daily . 11/26/19: Pt recently admitted at [facility] for symptomatic anemia. Hgb 7.3 -> 9 after 2U PRBC transfusion. Feels energy level is somewhat improved. + SOB but at baseline, no CP. Did have increased acid reflux these days. Denies abd pain, n/v. + black formed stools on iron Past Medical History: Diagnosis Date Chronic hypoxemic [...] DIAGNOSTIC (RECTUM) 10/04/2016 normal bx, repeat 10 yrs/[facility] DENTAL SURGERY PROCEDURE NEC wisdom teeth x 4 DILATION AND CURETTAGE (D&C) EGD, FLEXIBLE, DIAGNOSTIC 10/04/2016 gastritis/[facility] EGD, FLEXIBLE, DIAGNOSTIC 01/11/2018 eso varices, retained food, repeat 1 yr/[facility] PELVIS/HIP JOINT SURGERY NEC [...] Shampoo twice a week 120 mL 1 BD PEN NEEDLE MINI U/F 31G X 5 MM use with basaglar at bedtime 100 Each 10 nystatin (NYSTOP) 705014 UNIT/GM powder Apply topically to affected area [...] dose is 40mg daily) 30 Tab 5 potassium chloride ER 10 MEQ TBCR TAKE [...] TABS 1 tab daily 1 Tab 0 levothyroxine (LEVOXYL) 150 MCG Tablet TAKE 1 TABLET BY MOUTH ONCE DAILY at least 30 minutes prior to breakfast or other meds 30 Tab 10 REVIEW OF SYSTEMS: See HPI above; All other findings negative. Filed Vitals: 11/26/19 1255 BP: 115/82 Pulse: 68 Temp: 36.2 C (97.2 F) GENERAL: Well developed and well nourished, in no acute distress SKIN: No rashes, ulcers, jaundice or spider angiomata. HEENT: Normocephalic, sclera clear. NECK: Supple, trachea midline, no JVD LUNGS: Clear to auscultation bilaterally, no respiratory distress or accessory muscles used. HEART: Regular rate & rhythm, no murmurs and no gallops. ABDOMEN: Normal bowel sounds, soft and non tender. Limited exam as she cannot get on exam table, examined on wheelchair EXTREMITIES: No palmar erythema, non pitting edema on lower legs, no skin discoloration, no clubbing, no cyanosis. NEURO: No lateralizing findings. Sensory/Motor grossly normal. 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 MELD 6. - Continue Protonix to 40mg daily given indigestion, GERD control. - Obtain MELD labs q3-6months. Recent CBC, CMP obtained at [facility] visit reviewed. - Last EGD: 02/22/1919 Grade II non bleeding varices, portal HTN. She is on Nadolol 40mg daily, HR 60.Will schedule repeat EGD given worsening anemia. - Last Colonoscopy: 2017 - int hemorrhoids, due for repeat in 10 yrs. - Hep A immunity: completed series - Hep B immunity: completed series - HCC screening [id number]: unable to obtain AFP due to lack of insurance coverage. CT abd/pelvis w contrast 08/2020 at [facility] w/o signs of hepatic mass - Pancreas head lesion, evaluated via EUS in 02/22/19, too small (5 x 10mm) for aspiration but likely IPMN. Will plan for MRI eval in 1 yr's time. - Encouraged to abstain from ETOH, illicit drugs, APAP no more than 2g daily - Low salt (2g) daily - Advised good control of blood sugars RTC: 3months; or sooner prn. ZAK Schreiber [facility] Gastroenterology, [facility] documented in this encounter Nursing Notes * Sabine Valencia LPN - 11/26/2019 12:58 PM EDT Patient identified by name and date of . Chief Complaint Patient presents with Re-Check 3 month follow up - NAFLD, GERD Symptoms: headache, burning in her throat, burping, Bowel Movement Frequency: everyday Bowel Movement Consistency: formed Straining: no Rectal Pain: no Blood in Stool:no, but they are unsure- said her stools look black at times. documented in this encounter Plan of Treatment Upcoming Encounters Date Type Specialty Care Team Description 11/27/2019 Procedure Only Endoscopy Hunter Xiong MD [address] [place] [address] [phone] 12/03/2019 Office Visit Hematology Oncology Tono Sanchez MD [address] [place] [address] [phone] 12/17/2019 Procedure Only Endoscopy Janis Hatch DO [address] [place] [address] [phone] 01/09/2020 Office Visit Gynecology Obstetrics Aman Small, CNM [address] [place] [phone] 01/27/2020 Office Visit Family Medicine Rajwinder Carter DO [address] [facility], [place] [phone] 01/29/2020 Nutrition Services Gastroenterology Melissa Omalley, RDN [address] [place] [id number] 02/26/2020 Office Visit Gastroenterology Lyssa Stout CRNP [address] [facility] [place] [address] [phone] 09/03/2020 Imaging Radiology Health Maintenance Due Date Last Done Comments Zoster Vaccines (2 of 3) 02/03/2016 12/09/2015 DIABETES-EYE EXAM 06/12/2019 06/12/2018, , 06/12/2018, Additional history exists PAP SMEAR-EVERY 3 YRS,AGES 21-65 10/10/2019 10/10/2016, 07/02/2014, 04/16/2013, Additional history exists DIABETES-URINE MICROALBUMIN EVERY 12 MONTHS 01/12/2020 01/11/2019, 08/24/2018, 07/19/2018, Additional history exists DIABETES-HGBA1C EVERY 6 MONTHS 05/13/2020 11/11/2019, 04/05/2019, 09/21/2018, Additional history exists BREAST CANCER SCREENING DISCUSSION [...] Diagnosis Other cirrhosis of liver (HCC)- Primary Anemia, unspecified type documented in this encounter Advance Directives Documents on File Type Date Recorded 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
--- OUTSIDE RECORDS SUMMARY | 2023-05-10 22:52 | External Medical Summary | Summary of Care ---
Author Name Unknown Organization [facility] Address [place] [address] Care Team Providers Care Fermenting Cellar Dropper Name Role Phone Rajwinder Carter Primary Care Provider [phone] Encounter Details Date Type Department Care Team Description 11/27/2019 Result Scan Gastroenterology, [facility] [address] [place] [address] Hunter Xiong MD [address] [facility] [place] [address] <No scans attached> [...] Dosing Unit 5 10/07/2019 Active nystatin (NYSTOP) 453737 UNIT/GM powder Apply topically to affected area [...] pain 01/24/2012 01/17/2017 Genetic Sleep Disorder Research Other*[id number] 05/13/2011 04/07/2016 Obstructive sleep apnea 01/18/2011 12/27/19 [...] Visit Hematology Oncology Tono Sanchez MD [address] [facility], [place] [phone] 01/09/2020 Office Visit Gynecology Obstetrics Aman Small, BOOM [address] [place] [phone] 01/27/2020 Office Visit Family Medicine Rajwinder Carter DO [address] [place] [address] 01/29/2020 Nutrition Services Gastroenterology Melissa Omalley, SAMANTHA [address] [place] [phone] 02/26/2020 Office Visit Gastroenterology [facility] Stout CRNP [facility] [address] [phone] 09/03/2020 Imaging Radiology Health Maintenance Due Date [...] Date/Time Associated Diagnosis Comments OUTSIDE LAB RESULTS 11/27/2019 documented in this encounter Results * OUTSIDE LAB RESULTS (11/27/2019) Specimen Narrative Performed At documented in this encounter Advance Directives Documents on File Type Date Recorded Patient Hospice Care Transitions Coordinator Expl 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
--- OUTSIDE RECORDS SUMMARY | 2023-05-10 22:52 | External Medical Summary | Summary of Care ---
Author Name Unknown Organization [facility] Address [place] [address] Care Team Providers Care Medical Physics Researcher Name Role Phone Rajwinder Carter Primary Care Provider [phone] Encounter Details Date Type Department Care Team Description 11/28/2019 Scan Encounter Unspecified Department <No scans attached> [...] Dosing Unit 5 10/07/2019 Active nystatin (NYSTOP) 485296 UNIT/GM powder Apply topically to affected area [...] pain 01/24/2012 01/17/2017 Genetic Sleep Disorder Research Other*[id number] 05/13/2011 04/07/2016 Obstructive sleep apnea 01/18/2011 12/27/19 [...] Description 12/02/2019 Office Visit Family Medicine Rajwinder Carter, [address] [place] [address] 12/03/2019 Office Visit Hematology Oncology Tono Sanchez MD [address] [place], [place] [phone] 01/09/2020 Office Visit Gynecology Obstetrics Aman Small, MANAV [address] [place] [phone] 01/27/2020 Office Visit Family Medicine Rajwinder Carter DO [address] [facility] [address] 01/29/2020 Nutrition Services Gastroenterology Melissa Omalley RDN [address] [place] [phone] 02/26/2020 Office Visit Gastroenterology [facility] Stout [facility] [address] [facility] [address] [phone] 09/03/2020 Imaging Radiology Health Maintenance Due Date [...] Documents on File Type Date Recorded Patient Estimator And Drafter Expl 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
--- OUTSIDE RECORDS SUMMARY | 2023-05-10 22:53 | External Medical Summary | Summary of Care ---
Author Name Unknown Organization [facility] Address [place] [address] Care Team Providers Care Acquisitions Editor Name Role Phone Rajwinder Carter Primary Care Provider [phone] Encounter Details Date Type Department Care Team Description 11/20/2019 Scan Encounter Unspecified Department <No scans attached> Allergies Active Allergy Reactions Severity Noted Date Comments Penicillins Rash 02/12/2008 documented as of this encounter (statuses as of 11/21/2019) Medications Medication Sig Dispensed Refills Start Date End Date Status CENTRUM SILVER PO TABS 1 tab daily 1 Tab 0 05/25/2012 Active vitamin c (ASCORBIC ACID) 500 MG Tablet Take 500 mg by mouth daily. 0 Active insulin glargine (LANTUS SOLOSTAR) 100 UNIT/ML SOPNIndications:Type 2 diabetes mellitus with hemoglobin A1c goal of less than 7.0% ([facility]) INJECT 24 UNITS UNDER THE [...] Dosing Unit 5 10/07/2019 Active nystatin (NYSTOP) 501673 UNIT/GM powder Apply topically to affected area 3 times a day. 60 g 1 10/16/2019 Active BD PEN NEEDLE MINI U/F 31G X 5 MMIndications:Type 2 diabetes mellitus with hemoglobin A1c goal of less than 7.0% ([facility]) use with basaglar at bedtime [...] as of this encounter (statuses as of 11/21/2019) Active Problems Problem Noted Date Thrombocytopenia 05/02/2019 [...] as of this encounter (statuses as of 11/21/2019) Resolved Problems Problem Noted Date Resolved Date [...] pain 01/24/2012 01/17/2017 Genetic Sleep Disorder Research Other*[id number] 05/13/2011 04/07/2016 Obstructive sleep apnea 01/18/2011 12/27/19 [...] as of this encounter (statuses as of 11/21/2019) Immunizations Name Administration Dates Next Due HEP [...] Encounters Date Type Specialty Care Team Description 11/25/2019 Office Visit Family Medicine Rajwinder Carter, DO [address] [place] [address] [phone] 11/26/2019 Office Visit [facility]enterology [facility] [address] [phone] 12/03/2019 Office Visit Hematology Oncology Tono Sanchez MD [address] [place] [address] [phone] 12/17/2019 Procedure Only Endoscopy Janis Hatch, DO [address] [facility] [place] [address] [phone] 01/09/2020 Office Visit Gynecology Obstetrics Aman Small, MANAV [address] [place] [phone] 01/29/2020 Nutrition Services Gastroenterology Melissa Omalley, [place] [address] [place] [phone] 09/03/2020 Imaging Radiology Health Maintenance Due Date [...] on File Type Date Recorded Patient Transportation Planner Expl 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
--- OUTSIDE RECORDS SUMMARY | 2023-05-10 22:53 | External Medical Summary | Summary of Care ---
Author Name Unknown Organization [facility] Address [place] [address] Care Team Providers Care Cloth Presser Name Role Phone Rajwinder Carter DO Primary Care Provider [phone] Reason for Visit * Reason Comments Hospital Follow-Up was in [facility] had aleman sfusion was d/c 11/21. Patient feels like they may have discharged her too soon. not feeling well at all. Encounter Details Date Type Department Care Team Description 11/25/2019 Office Visit [facility] [address] [place] [address] Rajwinder Carter DO [address] [place], [place] [phone] Hospital discharge follow-up*; Anemia, unspecified type; NG (nonalcoholic steatohepatitis); Cirrhosis of liver without ascites, unspecified hepatic cirrhosis type (HCC); Thrombocytopenia (HCC); Obesity, morbid (more than 100 lbs over ideal weight or BMI > 40) (HCC) Allergies Active Allergy Reactions Severity Noted Date Comments Penicillins Rash 02/12/2008 documented as of this encounter (statuses as of 11/25/2019) Medications Medication Sig Dispensed Refills Start Date [...] Dosing Unit 5 10/07/2019 Active nystatin (NYSTOP) 932504 UNIT/GM powder Apply topically to affected area [...] as of this encounter (statuses as of 11/25/2019) Active Problems Problem Noted Date Thrombocytopenia 05/02/2019 [...] as of this encounter (statuses as of 11/25/2019) Resolved Problems Problem Noted Date Resolved Date [...] pain 01/24/2012 01/17/2017 Genetic Sleep Disorder Research Other*[id number] 05/13/2011 04/07/2016 Obstructive sleep apnea 01/18/2011 12/27/19 [...] as of this encounter (statuses as of 11/25/2019) Immunizations Name Administration Dates Next Due HEP [...] Reading Time Taken Comments Blood Pressure 110/70 11/25/2019 1:37 PM EDT Pulse 64 11/25/2019 1:37 PM EDT Temperature 36.8 C (98.3 F) 11/25/2019 1:37 PM ED T Respiratory Rate 20 11/25/2019 1:37 PM EDT Oxygen Saturation - - Inhaled Oxygen Concentration - - Weight - - Height - - Body Mass Index - - documented in this encounter Progress Notes * Rajwinder Carter DO - 11/25/2019 1:35 PM EDT SUBJECTIVE: Chief Complaint Patient presents with Hospital Follow-Up was in [facility] had transfusion was d/c 11/21. Patient feels like they may have discharged her too soon.not feeling well at all. HPI: Shaina Bustos is a 64 year old female who presents today for hospital follow-up. No discharge summary is available. Pt was admitted on 11/19 with shortness of breath. It was felt that this was possibly due to anemia. She was transfused with improvement and discharged on 11/21. Pt states that she is feeling some better. She had some improvement with the transfusions. She notes that she does not feel 100%. She states that she has headaches on occasion. She thought that she had a fever on Monday but could no find her thermometer. She has her EGD scheduled for 12/16. She is scheduled to see GI tomorrow and hematology on 12/02. PHM: Patient Active Problem List Diagnosis Code Edema R60.9 Venous insufficiency I87.2 Spinal stenosis of lumbar region without neurogenic claudication M48.061 Cerebral palsy ([facility]) G80.9 HTN, goal below 140/90 I10 Chronic [...] Chronic pain syndrome G89.4 MEDICATION USE AGREEMENT [id number] History of Clostridium difficile colitis Z86.19 Cirrhosis of liver ([facility]) K74.60 THAD on CPAP G47.33, Z99.89 Wheelchair dependent Z99.3 History of recent fall Z91.81 Pancytopenia ([facility]) D61.818 Ambulatory dysfunction R26.2 Fall W19.XXXA Sprain of right ankle S93.401A DM type 2 with diabetic peripheral neuropathy ([facility]) E11.42 Insomnia G47.00 Recurrent major depressive disorder, in partial remission ([facility]) F33.41 Impaired mobility and ADLs Z74.09 Generalized weakness R53.1 Gastroesophageal reflux disease K21.9 History of kidney stones Z87.442 History of Achilles tendon repair Z98.890 History of delivery Z98.891 History of MRSA infection Z86.14 History of migraine Z86.69 Anemia D64.9 Fibromyalgia M79.7 Achilles tendinitis, right leg M76.61 DNR (do not resuscitate) Z66 Thrombocytopenia ([facility]) D69.6 Current Outpatient Medications Medication Sig Dispense [...] at bedtime 100 Each 10 nystatin (NYSTOP) 770887 UNIT/GM powder Apply topically to affected area [...] BY MOUTH AT BEDTIME 30 Tab 4 insulin glargine (LANTUS SOLOSTAR) 100 UNIT/ML SOPN INJECT 24 UNITS UNDER THE SKIN AT BED TIME 15 mL 3 vitamin c (ASCORBIC ACID) 500 MG Tablet Take 500 mg by mouth daily. CENTRUM SILVER PO TABS 1 tab daily 1 Tab 0 atorvaSTATin (LIPITOR) 40 MG Tablet TAKE 1 TABLET BY MOUTH EVERY NIGHT AT BEDTIME 90 Tab 0 furosemide (LASIX) 20 MG Tablet Take 20 [...] repeat 10 yrs/[facility] DENTAL SURGERY PROCEDURE NEC wisdom teeth x 4 DILATION AND CURETTAGE (D&C) EGD, FLEXIBLE, DIAGNOSTIC 10/04/2016 gastritis/[facility] EGD, FLEXIBLE, DIAGNOSTIC 01/11/2018 eso varices, retained food, repeat 1 yr/[facility] PELVIS/HIP JOINT SURGERY NEC teenager aid in [...] Negative for color change, pallor and rash. Neurological: Positive for headaches. OBJECTIVE: BP 110/70 | Pulse 64 | Temp (Src) 98.3 (Tympanic) | Resp 20 | Wt (0.000kg) [...] (Z09) Hospital discharge follow-up (primary encounter diagnosis) (D64.9) Anemia, unspecified type Plan: CBC/DIFF, DISCH MED RECON CUR MED LIS Pt will complete repeat lab studies. Keep appt for EGD and with GI/hematology. She should monitor for any new or worsening symptoms. (K75.81) NG (nonalcoholic steatohepatitis) (K74.60) Cirrhosis of liver without ascites, unspecified hepatic cirrhosis type (HCC) (D69.6) Thrombocytopenia (HCC) Plan: Pt will keep follow-up as scheduled. Repeat lab studies. (E66.01) Obesity, morbid (more than 100 lbs over ideal weight or BMI > 40) (HCC) Plan: Pt now wheelchair bound. Appears to be gaining weight. Discussed importance of diet as she isnow less active. Follow-up: 2 months Rajwinder Carter DO documented in this encounter Nursing Notes * Janett Hurst LPN - 11/25/2019 1:36 PM EDT Chief Complaint Patient presents with Hospital Follow-Up was in [facility] had transfusion was d/c 11/21. Patient feels like they may have discharged her too soon.not feeling well at all. documented in this encounter Plan of Treatment Upcoming Encounters Date Type Specialty Care Team Description 11/26/2019 Office Visit Gastroenterology Lyssa Stout CRNP [address] [place] [address] [phone] 12/03/2019 Office Visit Hematology Oncology Tono Sanchez MD [address] [place] [address] [phone] 12/17/2019 Procedure Only Endoscopy Janis Hatch DO [address] [place] [address] [phone] 01/09/2020 Office Visit Gynecology Obstetrics Aman Small CNM [address] [facility] [place] [address] [phone] 01/27/2020 Office Visit Family Medicine Rajwinder Carter DO [address] [place] [address] [phone] 01/29/2020 Nutrition Services Gastroenterology Melissa Omalley, RDN [address] [place] [address] 09/03/2020 Imaging Radiology Scheduled Orders Name Type Priority Associated Diagnoses Orde r Schedule CBC/DIFF Lab Routine Anemia, unspecified type Expected: 11/25/2019 (Approximate), Expires: 11/24/2020 Health Maintenance Due Date Last Done Comments [...] Hospital discharge follow-up- Primary Other follow-up examination Anemia, unspecified type NG (nonalcoholic steatohepatitis) Other chronic nonalcoholic liver disease Cirrhosis of liver without ascites, unspecified hepatic cirrhosis type (HCC) Thrombocytopenia (HCC) Thrombocytopenia, unspecified Obesity, morbid (more than 100 lbs over ideal weight or BMI > 40) (HCC) Morbid obesity documented in this encounter Advance Directives Documents on File Type Date Recorded Patient Kids Activities Coach Expl 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"
--- OUTSIDE RECORDS SUMMARY | 2023-05-10 22:53 | External Medical Summary | Summary of Care ---
Author Name Unknown Organization [facility] Address [place] [address] Care Team Providers Care Lead Neurodiagnostic Technologist Name Role Phone Rajwinder Carter DO Primary Care Provider [phone] Reason for Visit * Reason Comments Order Request Encounter Details Date Type Department Care Team Description 11/15/[address] [facility] [address] [place] [address] Rajwinder Carter DO [address] [place] [address] Order Request Allergies Active Allergy [...] 7.0% ([facility]) INJECT 24 UNITS UNDER THE SKIN [...] 7.0% ([facility]) TAKE 1 TABLET BY MOUTH TWICE [...] Dosing Unit 5 10/07/2019 Active nystatin (NYSTOP) 434047 UNIT/GM powder Apply topically to affected area [...] a day. 60 Tab 5 11/14/2019 Active documented as of this encounter (statuses [...] pain 01/24/2012 01/17/2017 Genetic Sleep Disorder Research Other*[id number] 05/13/2011 04/07/2016 Obstructive sleep apnea 01/18/2011 12/27/19 [...] Telephone Encounter - Jovana Lambert, UMA - 11/21/2019 9:54 AM EDT No Form I do not have a contact number If they call back Form is not received and they need to fax to [phone] Encounter closed * Telephone Encounter - Susan Rosales RN - 11/15/2019 11:21 AM EST Have not seen form yet * Telephone Encounter - Marcy Mendez LPN - 11/15/2019 11:06 AM EST [facility] from [facility] Delivered checking on the status of a fax they sent to the office for an incontinence supplies order. Please confirm this was received and return signed fax. Thanks! documented in this encounter Plan of Treatment Upcoming Encounters Date Type Specialty Care Team Description 11/25/2019 Office Visit Family Medicine Rajwinder Carter DO [address] [place], [place] [id number] 11/26/2019 Office Visit Gastroenterology Lyssa Stout CRNP 132 [facility] [place] [address] [phone] 12/03/2019 Office Visit Hematology Oncology Tono Sanchez MD 200 [place] [address] [phone] 12/17/2019 Procedure Only Endoscopy Janis Hatch DO 132 [facility] [place] [address] [phone] 01/09/2020 Office Visit Gynecology Obstetrics Aman Small CNM 400 [facility] [place] [address] [phone] 01/29/2020 Nutrition Services Gastroenterology Melissa Omalley RDN [address] [place] [place] [address] [phone] 09/03/2020 Imaging Radiology Health Maintenance Due Date [...] Documents on File Type Date Recorded 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
--- OUTSIDE RECORDS SUMMARY | 2023-05-10 22:53 | External Medical Summary | Summary of Care ---
Author Name Unknown Organization [facility] Address [place] [address] Care Team Providers Care Wet Process Head Miller Name Role Phone Rajwinder Carter DO Primary Care Provider [phone] Reason for Visit * Reason Comments Order Request Encounter Details Date Type Department Care Team Description 11/15/2019 Telephone [facility] [address] [place] [address] Rajwinder Carter DO [address] [place] [address] Order Request Allergies Active Allergy Reactions Severity Noted Date Comments Penicillins Rash 02/12/2008 documented as of this encounter (statuses as of 11/20/2019) Medications Medication Sig Dispensed Refills Start Date End Date Status CENTRUM SILVER PO TABS 1 tab daily 1 Tab 0 05/25/2012 Active vitamin c (ASCORBIC ACID) 500 MG Tablet Take 500 mg by mouth daily. 0 Active insulin glargine (LANTUS SOLOSTAR) 100 UNIT/ML SOPNIndications:Type 2 diabetes mellitus with hemoglobin A1c goal of less than 7.0% ([facility]) INJECT 24 UNITS UNDER THE SKIN [...] Dosing Unit 5 10/07/2019 Active nystatin (NYSTOP) 539567 UNIT/GM powder Apply topically to affected area [...] as of this encounter (statuses as of 11/20/2019) Active Problems Problem Noted Date Thrombocytopenia 05/02/2019 [...] as of this encounter (statuses as of 11/20/2019) Resolved Problems Problem Noted Date Resolved Date [...] pain 01/24/2012 01/17/2017 Genetic Sleep Disorder Research Other*[id number] 05/13/2011 04/07/2016 Obstructive sleep apnea 01/18/2011 12/27/19 [...] as of this encounter (statuses as of 11/20/2019) Immunizations Name Administration Dates Next Due HEP [...] encounter Miscellaneous Notes * Telephone Encounter - Susan Rosales RN [...] Visit Family Medicine Rajwinder Carter, DO [address] [place], [place] [address] 11/26/2019 Office Visit [facility]ology [facility] [address] [phone] 12/03/2019 Office Visit Hematology Oncology Tono Sanchez MD [address] [place] [address] [phone] 12/17/2019 Procedure Only Endoscopy Janis Hatch, DO 132 [place] [address] [phone] 01/09/2020 Office Visit Gynecology Obstetrics Aman Small, MANAV 400 [facility] [place] [address] [phone] 01/29/2020 Nutrition Services Gastroenterology Melissa Omalley RDN 310 [facility] [address] [place] [id number] 09/03/2020 Imaging Radiology Health Maintenance Due Date [...] Documents on File Type Date Recorded Patient Doll Eye Setter Expl 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
--- OUTSIDE RECORDS SUMMARY | 2023-05-10 22:53 | External Medical Summary | Summary of Care ---
Author Name Unknown Organization [facility] Address [place] [address] Care Team Providers Care Vehicle Fare Collector Name Role Phone Rajwinder Carter Primary Care Provider [phone] Encounter Details Date Type Department Care Team Description 11/20/2019 Scan Encounter Unspecified Department <No scans attached> Allergies Active Allergy Reactions Severity Noted Date Comments Penicillins Rash 02/12/2008 documented as of this encounter (statuses as of 11/22/2019) Medications Medication Sig Dispensed Refills Start Date End Date Status CENTRUM SILVER PO TABS 1 tab daily 1 Tab 0 05/25/2012 Active vitamin c (ASCORBIC ACID) 500 MG Tablet Take 500 mg by mouth daily. 0 Active insulin glargine (LANTUS SOLOSTAR) 100 UNIT/ML SOPNIndications:Type 2 diabetes mellitus with hemoglobin A1c goal of less than 7.0% ([facility]) INJECT 24 UNITS UNDER THE [...] Dosing Unit 5 10/07/2019 Active nystatin (NYSTOP) 937326 UNIT/GM powder Apply topically to affected area [...] as of this encounter (statuses as of 11/22/2019) Active Problems Problem Noted Date Thrombocytopenia 05/02/2019 [...] as of this encounter (statuses as of 11/22/2019) Resolved Problems Problem Noted Date Resolved Date [...] pain 01/24/2012 01/17/2017 Genetic Sleep Disorder Research Other*[id number] 05/13/2011 04/07/2016 Obstructive sleep apnea 01/18/2011 12/27/19 [...] as of this encounter (statuses as of 11/22/2019) Immunizations Name Administration Dates Next Due HEP [...] Family Medicine Rajwinder Carter, DO [address] [place] [address] [phone] 11/26/2019 Office Visit [facility]ology [facility] CR[facility] [address] [phone] 12/03/2019 Office Visit Hematology Oncology Tono Sanchez MD 200 [facility] [place] [address] [phone] 12/17/2019 Procedure Only Endoscopy Janis Hatch, DO 132 [facility] [place] [address] [phone] 01/09/2020 Office Visit Gynecology Obstetrics Aman Small, MANAV [address] [place] [id number] 01/29/2020 Nutrition Services Gastroenterology Melissa Omalley, [place] [address] [place] [address] [place] [id number] 09/03/2020 Imaging Radiology Health Maintenance Due Date [...] Documents on File Type Date Recorded Patient [employer] Officer Expl 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
--- OUTSIDE RECORDS SUMMARY | 2023-05-10 22:53 | External Medical Summary | Summary of Care ---
Author Name Unknown Organization [facility] Address [place] [address] Care Team Providers Care Flame Cutting Machine Operator Name Role Phone Rajwinder Lara DO Primary Care Provider [phone] Reason for Visit * Reason Comments Medication Refill Encounter Details Date Type Department Care Team Description 11/18/2019 Refill [facility] [address] [place] [address] Rajwinder Lara DO [address] [place] [address] [phone] Allergies Active Allergy Reactions Severity Noted Date Comments Penicillins Rash 02/12/2008 documented as of this encounter (statuses as of 11/19/2019) Medications Medication Sig Dispensed Refills Start Date [...] Dosing Unit 5 10/07/2019 Active nystatin (NYSTOP) 961732 UNIT/GM powder Apply topically to affected area [...] as of this encounter (statuses as of 11/19/2019) Active Problems Problem Noted Date Thrombocytopenia 05/02/2019 [...] as of this encounter (statuses as of 11/19/2019) Resolved Problems Problem Noted Date Resolved Date [...] pain 01/24/2012 01/17/2017 Genetic Sleep Disorder Research Other*[id number] 05/13/2011 04/07/2016 Obstructive sleep apnea 01/18/2011 12/27/19 [...] as of this encounter (statuses as of 11/19/2019) Immunizations Name Administration Dates Next Due HEP [...] encounter Miscellaneous Notes * Telephone Encounter - Artur Garcia RP - 11/19/2019 10:20 AM EDT Signed Prescriptions: Disp Refills Blood Glucose Monitoring Suppl (BLOOD GLUC*1 Kit 0 Sig: Use to test once per day. Authorizing Provider: RAJWINDER LARA Ordering User: ARTUR GARCIA Glucose Blood (BLOOD GLUCOSE TEST) STRP 100 St*3 Sig: Use to test once per day. Authorizing Provider: RAJWINDER LARA Ordering User: ARTUR GARCIA Lancets MISC 100 Ea*3 Sig: Use to test once per day. Authorizing Provider: RAJWINDER LARA Ordering User: ARTUR GARCIA * Telephone Encounter - Sierra Jeronimo, vp digital marketing - 11/18/2019 11:59 AM EDT Please approve the following new testing supplies for pt, she was advised to start testing again but didn't know what supplies would be needed. Pharmacy advised to send generic and they would fill whatever pt's insurance will cover. Pending Prescriptions: Disp Refills Blood Glucose Monitoring Suppl (BLOOD GLU*1 Kit 0 Sig: Use to test once per day. Glucose Blood (BLOOD GLUCOSE TEST) STRP 100 St*3 Sig: Use to test once per day. Lancets MISC 100 Ea*3 Sig: Use to test once per day. Last Office Visit: 11/14/2019 Next Office Visit: 11/25/2019 Scheduled Provider(s): Rajwinder Lara DO If no future appointments scheduled, and last appointment is greater than a year ago, please schedule patient for a follow-up appointment Last date the medication was ordered: "new" Pharmacy: [id number] Is this request for a controlled [...] PM ALT 27 06/06/2019 01:03 PM HGBA1C 7.3 (H) 11/11/2019 02:35 PM documented in this encounter Plan of Treatment Upcoming Encounters Date Type Specialty Care Team Description 11/25/2019 Office Visit Family Medicine Rajwinder Lara DO [address] [facility] [place] [address] 11/26/2019 Office Visit Gastroenterology Lyssa Stout CRNP [address] [place] [address] [phone] 12/03/2019 Office Visit Hematology Oncology Tono Sanchez MD 200 [place] [address] [phone] 12/17/2019 Procedure Only Endoscopy Janis Hatch DO 132 [place] [address] [phone] 01/09/2020 Office Visit Gynecology Obstetrics Aman Small CNM [address] [place] [address] [address] 01/29/2020 Nutrition Services Gastroenterology Melissa Omalley, RDN [address] [place] [address] [phone] 09/03/2020 Imaging Radiology Health Maintenance Due Date [...] Documents on File Type Date Recorded Patient Bowl Turner Expl 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
--- OUTSIDE RECORDS SUMMARY | 2023-05-10 22:53 | External Medical Summary | Summary of Care ---
Author Name Unknown Organization [facility] Address [place] [address] Care Team Providers Care Cream Dipper Name Role Phone JohnbrianRajwinder thacker Primary Care Provider [phone] Reason for Visit * Reason Comments Test Results Encounter Details Date Type Department Care Team Description 11/19/[address] [facility] [address] [place], [place] [id number] Torrie Arciniega PA-C [address], [place] [phone] Test Results Allergies Active Allergy Reactions Severity [...] of less than 7.0% ([facility]) INJECT 24 UNITS UNDER THE SKIN AT [...] Dosing Unit 5 10/07/2019 Active nystatin (NYSTOP) 022261 UNIT/GM powder Apply topically to affected area 3 times a day. 60 g 1 10/16/2019 Active BD PEN NEEDLE MINI U/F 31G X 5 MMIndications:Type 2 diabetes mellitus with hemoglobin A1c goal of less than 7.0% ([facility]) use with basaglar at bedtime 100 [...] pain 01/24/2012 01/17/2017 Genetic Sleep Disorder Research Other*[id number] 05/13/2011 04/07/2016 Obstructive sleep apnea 01/18/2011 12/27/19 [...] Telephone Encounter - Susan Rosales RN - 11/19/2019 10:45 AM EDT Spoke to Frida given results and she is scheduled EGD 12/16 * Telephone Encounter - Torrie Arciniega PA-C - 11/19/2019 8:10 AM EDT Please notify pt that HGB is at 7.6, which is stable for now. Make sure that she has increased her iron to twice per day dosing. Please confirm that she has an endoscopy scheduled - will likely be done at [facility]. Lyssa Stout was supposed to have scheduled this with her team - just want to confirm this has happened. documented in this encounter Plan of Treatment Upcoming Encounters Date Type Specialty Care Team Description 11/25/2019 Office Visit Family Medicine Rajwinder Carter DO [address] [facility] [place] [address] [phone] 11/26/2019 Office Visit Gastroenterology Lyssa Stout CRNP 132 [facility] [place] [address] [phone] 12/03/2019 Office Visit Hematology Oncology Tono Sanchez MD 200 [place] [address] [phone] 12/17/2019 Procedure Only Endoscopy Janis Hatch DO [address] [place] [address] [phone] 01/09/2020 Office Visit Gynecology Obstetrics Aman Small CNM [address] [place] [address] 01/29/2020 Nutrition Services Gastroenterology Melissa Omalley RDN [...] Documents on File Type Date Recorded Patient Caseworker Expl 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
--- OUTSIDE RECORDS SUMMARY | 2023-05-10 22:54 | External Medical Summary | Summary of Care ---
Author Name Unknown Organization [facility] Address [place] [address] Care Team Providers Care Film Reproducer Name Role Phone JohnbrianRajwinder thacker Primary Care Provider [phone] Reason for Visit * Reason Comments Appointment Encounter Details Date Type Department Care Team Description 11/14/2019 Telephone Gastroenterology, [facility] 132 [facility] [place] [address] Lyssa Stout CRNP 132 [facility] [place] [address] [phone] Appointment Allergies Active Allergy Reactions Severity Noted Date Comments Penicillins Rash 02/12/2008 documented as of this encounter (statuses as of 11/15/2019) Medications Medication Sig Dispensed Refills Start Date [...] AT BED TIME 15 mL 3 9 Active furosemide (LASIX) 20 MG Tablet Take [...] other meds 30 Tab 10 9 Active potassium chloride ER 10 MEQ TBCRIndications:Hyp okalemia TAKE 1 TABLET ONCE DAILY WITH FOOD 30 Tab 4 9 Active SM ASPIRIN ADULT LOW STRENGTH 81 MG TBEC TAKE 1 TABLET BY MOUTH ONCE DAILY 30 Tab 4 9 Active MetFORMIN (GLUCOPHAGE) 1000 MG TabletIndications:T [...] Dosing Unit 5 0 Active nystatin (NYSTOP) 781976 UNIT/GM powder Apply topically to affected area [...] 120 mL 1 0 12/04/19 20 Active cyclobenzaprine (FLEXERIL) 10 MG Tablet Take 1 Tab by mouth at bedtime. 30 Tab 0 0 Active gabapentin (NEURONTIN) 300 MG Capsule One pill in am, one midday, two in pm, 180 Cap 5 0 Active tamsulosin (FLOMAX) 0.4 MG Capsule Take 1 Cap by mouth daily. 30 Cap 3 0 Active nadolol (CORGARD) 20 MG Tablet Take 2 Tabs by mouth daily. 180 Tab 1 0 Active ferrous sulfate (FEOSOL) 325 (65 FE) MG Tablet Take 325 mg by mouth daily with breakfast. 0 11/14/19 20 Discontinued documented as of this encounter (statuses as of 11/15/2019) Active Problems Problem Noted Date Thrombocytopenia 05/02/2019 [...] as of this encounter (statuses as of 11/15/2019) Resolved Problems Problem Noted Date Resolved Date [...] pain 01/24/2012 01/17/2017 Genetic Sleep Disorder Research Other*[id number] 05/13/2011 04/07/2016 Obstructive sleep apnea 01/18/2011 12/27/19 [...] as of this encounter (statuses as of 11/15/2019) Immunizations Name Administration Dates Next Due HEP [...] Telephone Encounter - Ramez Ledbetter OSA - 11/15/2019 8:13 AM EST EGD maida'd 12/16 w/ [place]. Pt also informed of notation below. * Telephone Encounter - Dominga Blackwell OSA - 11/14/2019 3:25 PM EST Tried to reach the patient, both phone numbers the VM is full. * Telephone Encounter - Lyssa Stout CRNP - 11/14/2019 2:08 PM EST Spoke w Family Practice PA Torrie Arciniega PA-C. Pt seen in ED yesterday, acute on chronic anemia. Hgb 7.4. BUN normal 16. FOBT positive. She denies any sign of hematemesis. Stools dark but on FerrousSulfate 325mg daily - Will arrange repeat EGD to r/o UGI from portal HTN, less likely acute variceal bleeding. Will defer colonoscopy as pt would be hard to prep due to her immobility. - Trial increase Ferrous Sulfate 325mg BID. - Keep GI appt on 11/26/2019. Automotive Wholesale Parts Advisor - Pls help schedule EGD ZAK Schreiber documented in this encounter Plan of Treatment Upcoming Encounters Date Type Specialty Care Team Description 11/25/2019 Office Visit Family Medicine [facility]inder [facility] [address] [facility] [id number] 11/26/2019 Office Visit Gastroenterology Lyssa Stout CRNP 132 [facility] [place] [address] [phone] 12/03/2019 Office Visit Hematology Oncology Tono Sanchez MD 200 [place] [address] [phone] 12/17/2019 Procedure Only Endoscopy Janis Hatch, DO [address] [place] [address] [phone] 01/09/2020 Office Visit Gynecology Obstetrics Aman Small, CNM [address] [place] [phone] 01/29/2020 Nutrition Services Gastroenterology Melissa Omalley, RDN [address] [place] [address] [place] [phone] 09/03/2020 Imaging Radiology Scheduled Orders Name Type Priority Associated Diagnoses Orde r Schedule EGD, FLEXIBLE, DIAGNOSTIC Procedures Routine Anemia, unspecified type Ordered: 11/14/2019 Health Maintenance Due Date Last Done Comments [...] File Type Date Recorded Patient Director Of Clinical Applications Expl 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
--- OUTSIDE RECORDS SUMMARY | 2023-05-10 22:54 | External Medical Summary | Summary of Care ---
Author Name Unknown Organization [facility] Address [place] [address] Care Team Providers Care Fruit And Vegetable Packer Name Role Phone JohnbrianRajwinder thacker Primary Care Provider [phone] Reason for Visit * Reason Comments Appointment Encounter Details Date Type Department Care Team Description 11/14/2019 Telephone Gastroenterology, [facility] 132 [facility] [place] [address] Lyssa Stout CRNP 132 [facility] [place] [address] [phone] Appointment Allergies Active Allergy Reactions Severity Noted Date Comments Penicillins Rash 02/12/2008 documented as of this encounter (statuses as of 11/14/2019) Medications Medication Sig Dispensed Refills Start Date End Date Status CENTRUM SILVER PO TABS 1 tab daily 1 Tab 0 05/25/2012 Active vitamin c (ASCORBIC ACID) 500 MG Tablet Take 500 mg by mouth daily. 0 Active insulin glargine (LANTUS SOLOSTAR) 100 UNIT/ML SOPNIndications:Type 2 diabetes mellitus with hemoglobin A1c goal of less than 7.0% ([facility]) INJECT 24 UNITS UNDER THE SKIN AT BED TIME 15 mL 3 02/22/2019 Active ferrous sulfate (FEOSOL) 325 (65 FE) MG Tablet Take 325 mg by mouth daily with breakfast. 0 Active furosemide (LASIX) 20 MG Tablet [...] Dosing Unit 5 10/07/2019 Active nystatin (NYSTOP) 247214 UNIT/GM powder Apply topically to affected area [...] mouth daily. 180 Tab 1 11/07/2019 Active documented as of this encounter (statuses as of 11/14/2019) Active Problems Problem Noted Date Thrombocytopenia 05/02/2019 [...] as of this encounter (statuses as of 11/14/2019) Resolved Problems Problem Noted Date Resolved Date [...] pain 01/24/2012 01/17/2017 Genetic Sleep Disorder Research Other*[id number] 05/13/2011 04/07/2016 Obstructive sleep apnea 01/18/2011 12/27/19 [...] as of this encounter (statuses as of 11/14/2019) Immunizations Name Administration Dates Next Due HEP [...] 2:08 PM EST Spoke w Family Practice [place] Arcin[place] PA-C. Pt seen in ED yesterday, [...] BID. - Keep GI appt on 11/26/2019. Utility Locator - Pls help schedule EGD ZAK Schreiber documented in this encounter Plan of Treatment Upcoming Encounters Date Type Specialty Care Team Description 11/25/2019 Office Visit Family Medicine Rajwinder Carter DO [address] [place], [place] [address] 11/26/2019 Office Visit [facility]ology [facility] [address] 12/03/2019 Office Visit Hematology Oncology Tono Sanchez MD [address] [place] [address] [phone] 01/09/2020 Office Visit Gynecology Obstetrics Aman Small CNM 400 [facility] [place] [address] 01/29/2020 Nutrition Services Gastroenterology Melissa Omalley RDN 310 [facility] [place] [address] [place] [address] 09/03/2020 Imaging [...] on File Type Date Recorded Patient Survey Research Associate Expl 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
--- OUTSIDE RECORDS SUMMARY | 2023-05-10 22:54 | External Medical Summary | Summary of Care ---
Author Name Unknown Organization [facility] Address [place] [address] Care Team Providers Care Appraiser Real Estate Name Role Phone Rajwinder Carter DO Primary Care Provider [phone] Reason for Visit * Reason Comments eRx-Medication Refill Encounter Details Date Type Department Care Team Description 11/16/2019 Refill [place] [address] [place] [address] Rajwinder Carter DO [address] [place] [address] [phone] Type 2 diabetes mellitus with hemoglobin A1c goal of less than 7.0% ([facility]) Allergies Active Allergy Reactions Severity Noted Date Comments Penicillins Rash 02/12/2008 documented as of this encounter (statuses as of 11/18/2019) Medications Medication Sig Dispensed Refills Start Date [...] Dosing Unit 5 10/07/2019 Active nystatin (NYSTOP) 072828 UNIT/GM powder Apply topically to affected area [...] as of this encounter (statuses as of 11/18/2019) Active Problems Problem Noted Date Thrombocytopenia 05/02/2019 [...] as of this encounter (statuses as of 11/18/2019) Resolved Problems Problem Noted Date Resolved Date [...] pain 01/24/2012 01/17/2017 Genetic Sleep Disorder Research Other*[id number] 05/13/2011 04/07/2016 Obstructive sleep apnea 01/18/2011 12/27/19 [...] as of this encounter (statuses as of 11/18/2019) Immunizations Name Administration Dates Next Due HEP [...] Telephone Encounter - Hayden Grimes RPh - 11/18/2019 9:25 AM EDT Refused Prescriptions: Disp Refills Dulaglutide (TRULICITY) 1.5 MG/0.5ML SOPN 2 mL 4 Sig: inject 1 syringeful under the skin ONCE A WEEKRefused By: Teresa GRIMES for Refusal: Other (comment below)Reason for Refusal Comment: pt preference d/siomara * Telephone Encounter - Hayden Grimes RPh - 11/18/2019 9:25 AM EDT The source prescription was discontinued on 10/30/2019 by Torrie Arciniega PA-C for the following reason: Patient preference/discontinuation documented in this encounter Plan of Treatment Upcoming Encounters Date Type Specialty Care Team Description 11/25/2019 Office Visit Family Medicine Rajwinder Carter, DO [address], [place] [phone] 11/26/2019 Office Visit Gastroenterology Lyssa Stout CRNP [address] [facility] [place] [address] [phone] 12/03/2019 Office Visit Hematology Oncology Tono Sanchez MD [address] [facility] [place] [address] [phone] 12/17/2019 Procedure Only Endoscopy Janis Hatch, [address] [facility] [place] [address] [phone] 01/09/2020 Office Visit Gynecology Obstetrics Aman Small, CNM [address] [place] [address] 01/29/2020 Nutrition Services Gastroenterology Melissa Omalley, [place] [address] [place] [id number] 09/03/2020 Imaging Radiology Health Maintenance Due Date [...]
--- OUTSIDE RECORDS SUMMARY | 2023-05-10 22:54 | External Medical Summary | Summary of Care ---
Author Name Unknown Organization [facility] Address [place] [address] Care Team Providers Care Packing House Supervisor Name Role Phone JohnbrianRajwinder thacker Primary Care Provider [phone] Reason for Visit * Reason Comments Test Results Encounter Details Date Type Department Care Team Description 11/19/2019 Telephone [facility] [address], [place] [phone] Torrie Arciniega PA-C [address] [place], [place] [phone] Test Results Allergies Active Allergy Reactions Severity [...] than 7.0% ([facility]) INJECT 24 UNITS UNDER THE [...] Dosing Unit 5 10/07/2019 Active nystatin (NYSTOP) 758577 UNIT/GM powder Apply topically to affected area [...] pain 01/24/2012 01/17/2017 Genetic Sleep Disorder Research Other*[id number] 05/13/2011 04/07/2016 Obstructive sleep apnea 01/18/2011 12/27/19 [...] encounter Miscellaneous Notes * Telephone Encounter - Torrie Arciniega PA-C - 11/19/2019 8:10 AM EDT Please notify pt that HGB is at 7.6, which is stable for now. Make sure that she has increased her iron to twice per day dosing. Please confirm that she has an endoscopy scheduled - will likely be done at [facility]. Lyssa Stout was supposed to have scheduled this with her team - just want to confirm this has happened. documented in this encounter Plan of Treatment Upcoming Encounters Date Type Specialty Care Team Description 11/25/2019 Office Visit Family Medicine Rajwinder Carter, DO [address] [facility] [place] [address] [phone] 11/26/2019 Office Visit Gastroenterology Lyssa Stout CRNP [address] [facility] [place] [address] [phone] 12/03/2019 Office Visit Hematology Oncology Tono Sanchez MD [address] [place] [address] [phone] 12/17/2019 Procedure Only Endoscopy Janis Hatch, [address] [facility] [place] [address] [phone] 01/09/2020 Office Visit Gynecology Obstetrics Aman Small, MANAV [address] [place] [address] [phone] 01/29/2020 Nutrition Services Gastroenterology Melissa Omalley RDN [address] [place] [id number] 09/03/2020 Imaging Radiology Health Maintenance Due Date [...] on File Type Date Recorded Patient Chemical Pumper Expl 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
--- OUTSIDE RECORDS SUMMARY | 2023-05-10 22:54 | External Medical Summary | Summary of Care ---
Author Name Unknown Organization [facility] Address [place] [address] Care Team Providers Care Retail Property Manager Name Role Phone JohnbrianRajwinder thacker Primary Care Provider [phone] Reason for Visit * Reason Comments Appointment Encounter Details Date Type Department Care Team Description 11/14/2019 Telephone Gastroenterology, [facility] [address] [facility] [place] [address] Lyssa Stout CRNP [address] [facility] [place] [address] [phone] Appointment Allergies Active Allergy Reactions Severity Noted [...] Dosing Unit 5 0 Active nystatin (NYSTOP) 155916 UNIT/GM powder Apply topically to affected area [...] pain 01/24/2012 01/17/2017 Genetic Sleep Disorder Research Other*[id number] 05/13/2011 04/07/2016 Obstructive sleep apnea 01/18/2011 12/27/19 [...] encounter Miscellaneous Notes * Telephone Encounter - Dominga Blackwell OSA [...] BID. - Keep GI appt on 11/26/2019. Bottled Beverage Inspector - Pls help schedule EGD ZAK Schreiber documented in this encounter Plan of Treatment Upcoming Encounters Date Type Specialty Care Team Description 11/25/2019 Office Visit Family Medicine Rajwinder Carter DO [address] [place] [address] [phone] 11/26/2019 Office Visit Gastroenterology Lyssa Stout CRNP [address] [place] [address] [phone] 12/03/2019 Office Visit Hematology Oncology Tono Sanchez MD [address] [place] [address] 01/09/2020 Office Visit Gynecology Obstetrics Aman Small CNM [address] [facility] [place] [phone] 01/29/2020 Nutrition Services Gastroenterology Melissa Omalley, [place] [...] Documents on File Type Date Recorded Patient Prosthetic Lab Technician Expl 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
--- OUTSIDE RECORDS SUMMARY | 2023-05-10 22:54 | External Medical Summary | Summary of Care ---
Author Name Unknown Organization [facility] Address [place] [address] Care Team Providers Care Mechanical Car Checker Name Role Phone JohnbrianRajwinder thacker Primary Care Provider [phone] Reason for Visit * Reason Comments Emergency Department Follow-Up was at [facility] for low blood count Encounter Details Date Type Department Care Team Description 11/14/[address] [facility] [address], [place] [phone] Torrie Arciniega PA-C [address], [place] [phone] Low hemoglobin*; Pancytopenia (HCC); NG (nonalcoholic steatohepatitis) Allergies Active Allergy [...] less than 7.0% ([facility]) INJECT 24 UNITS UNDER THE [...] Dosing Unit 5 0 Active nystatin (NYSTOP) 630214 UNIT/GM powder Apply topically to affected area [...] a day. 60 Tab 5 0 Active ferrous sulfate (FEOSOL) 325 (65 FE) MG Tablet Take 325 mg by mouth daily with breakfast. 0 11/14/19 20 Discontinued azithromycin (ZITHROMAX Z-SUYAPA) 250 MG TabletIndications:C at scratch Take two tablets by mouth on first day, then 1 tablet daily until gone 6 Tab 0 0 11/14/19 20 Discontinued documented as of [...] pain 01/24/2012 01/17/2017 Genetic Sleep Disorder Research Other*[id number] 05/13/2011 04/07/2016 Obstructive sleep apnea 01/18/2011 12/27/19 [...] Sign Reading Time Taken Comments Blood Pressure 122/60 11/14/2019 1:40 PM EST Pulse 68 11/14/2019 1:40 PM EST Temperature 36.6 C (97.8 F) 11/14/2019 1:40 PM ES T Respiratory Rate 20 11/14/2019 1:40 PM EST Oxygen Saturation 96% 11/14/2019 1:40 PM EST Inhaled Oxygen Concentration - - Weight - - Height - - Body Mass Index - - documented in this encounter Progress Notes * Torrie Arciniega PA-C - 11/14/2019 1:40 PM EST HPI: Shaina Bustos is a 64 year old female who presents to clinic for hospital discharge follow-up. Was seen in the ED yesterday for concern of weakness and sudden decrease in her hemoglobin. She did drop about 1 g in 48 hours and there was concern that given her slight shortness of breath and weakness she may need a transfusion. FOBT was pending. Patient was to leave a stool sample, but was unable to do this as she had not moved her bowels over the weekend since the sample was ordered. Hemoglobin on 11/11 was 7.7. Patient was checked in the ED and her hemoglobin was up to 7.8. Is pancytopenic. ED physician spoke with Dr. Carter who felt it was not necessary to get transfusion yesterday. Was discharged and to follow up today. CXR yesterday showed cardiomegaly with probable vascular congestion. FOBT + today. Last hemoglobin checked prior to ED visit was May and she was 10.5. Had been hovering around 10.5 prior to that. She is on oral iron daily in the morning only. Gets minimal iron via her diet. She currently complains only of headache. Has not taken anything for this. She denies any vision changes, chest pain, shortness of breath. Does have fatigue, but chronic. No worsening peripheral edema.No melena or hematochezia that she can see, but notes that she does have some dark stools regularlydue to the iron. No abdominal pain. No nausea or vomiting currently. Did have a 24 hour stomach bugwith few episodes of vomiting about 1 month ago, but resolved quickly. ROS: See HPI for positives and negatives. Patient denies additional complaints. PAST MEDICAL HISTORY: Patient Active Problem List Diagnosis Code Edema [...] less than 7.0% ([facility]) E11.9 Vitamin D deficiency E55.9 Restrictive lung disease J98.4 Obesity, morbid (more than 100 lbs over ideal weight or BMI > 40) ([facility]) E66.01 Dyslipidemia, goal LDL below 70 E78.5 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 R39.81 Acquired hypothyroidism E03.9 Chronic pain syndrome G89.4 MEDICATION USE AGREEMENT [id number] History of Clostridium difficile colitis Z86.19 Cirrhosis of liver ([facility]) K74.60 THAD on CPAP G47.33, Z99.89 Wheelchair dependent Z99.3 History of recent fall Z91.81 Pancytopenia ([facility]) D61.818 Ambulatory dysfunction R26.2 Fall W19.XXXA Sprain of right ankle S93.401A DM type 2 with diabetic peripheral neuropathy ([facility]) E11.42 Insomnia G47.00 Recurrent major depressive disorder, in partial remission ([facility]) F33.41 Impaired mobility and ADLs Z74.09 Generalized weakness R53.1 Gastroesophageal reflux disease K21.9 History of kidney stones Z87.442 History of Achilles tendon repair Z98.890 History of delivery Z98.891 History of MRSA infection Z86.14 History of migraine Z86.69 Anemia D64.9 Fibromyalgia M79.7 Achilles tendinitis, right leg M76.61 DNR (do not resuscitate) Z66 Thrombocytopenia (HCC) D69.6 Past Surgical History: Procedure Laterality Date DELIVERY 04/20/1982 COLONOSCOPY 04/21/09 repeat in 10 years COLONOSCOPY, DIAGNOSTIC (RECTUM) 10/04/2016 normal bx, repeat 10 yrs/[facility] DENTAL SURGERY PROCEDURE NEC wisdom teeth x 4 DILATION AND CURETTAGE (D&C) EGD, FLEXIBLE, DIAGNOSTIC 10/04/2016 gastritis/[facility] EGD, FLEXIBLE, DIAGNOSTIC 01/11/2018 eso varices, retained food, repeat 1 yr/[facility] PELVIS/HIP JOINT SURGERY NEC teenager aid in walking REPAIR/GRAFT ACHILLES TENDON age 40 aid in walking Review of patient's allergies indicates: Allergen Reactions Pcn [Penicillins] Rash Current Outpatient Medications Medication Sig Dispense Refill cyclobenzaprine (FLEXERIL) 10 MG Tablet Take 1 [...] at bedtime 100 Each 10 nystatin (NYSTOP) 725316 UNIT/GM powder Apply topically to affected area [...] BY MOUTH AT BEDTIME 30 Tab 4 ferrous sulfate (FEOSOL) 325 (65 FE) MG Tablet Take 325 mg by mouth daily with breakfast. insulin glargine (LANTUS SOLOSTAR) 100 UNIT/ML SOPN INJECT 24 UNITS UNDER THE SKIN AT BED TIME 15 mL 3 vitamin c (ASCORBIC ACID) 500 MG Tablet Take 500 mg by mouth daily. CENTRUM SILVER PO TABS 1 tab daily 1 Tab 0 furosemide (LASIX) 20 MG Tablet Take 20 mg by mouth daily. Every other day Nursing Notes: Janett Hurst LPN 11/14/19 1342 Signed Chief Complaint Patient presents with Emergency Department Follow-Up was at [facility] for low blood count EXAM: BP 122/60 | Pulse 68 | Temp (Src) 97.8 (Tympanic) | Resp 20 | Ht [wheelchair bound[ (0.000m) | Wt (0.000kg) | SaO2 96% GENERAL: alert, nontoxic HEAD: Normocephalic, atraumatic EYES: PERRL, EOMI, Conjunctiva are pale EARS: External ears normal, Canals clear, TM's clear with good cone of light NOSE: no purulent discharge, no sinus tenderness, no mucosal erythema or edema OROPHARYNX: no exudate, no erythema, lips, buccal mucosa, and tongue normal and mucous membranes are moist NECK: supple, no adenopathy HEART: regular rate & rhythm, no murmurs and no gallops LUNGS: clear to auscultation bilaterally, no wheezing, rales or rhonchi ABDOMEN: abdomen soft, non-tender, normal bowel sounds and no masses or organomegaly SKIN: skin color, texture, turgor are normal NEURO: alert & oriented x 3 with fluent speech, no focal motor/sensory deficits, gait normal, reflexes normal and symmetric ASSESSMENT/PLAN Low hemoglobin (Primary) - CBC/DIFF; Future; Expected date: 11/18/2019 Pancytopenia (HCC) - CBC/DIFF; Future; Expected date: 11/18/2019 NG (nonalcoholic steatohepatitis) Spoke with Lyssa Girish today regarding the low hemoglobin and positive FOBT. Recommends EGD. Notes that she would put the order in and have this scheduled for [facility]. Advised patient of this and theywill attempt to schedule today. Recommend increasing iron to twice per day. No NSAIDs. Tylenol only. F/u with GI as planned on 11/26/2019 and with hematology on 12/03/2019. If dramatically decreased hemoglobin can do transfusion - <7. There are no Patient Instructions on file for this visit. Torrie Arciniega PA-C [address] [address] This chart was completed in part utilizing [employer] Speech Voice Recognition Software. Grammatical errors, random [...] Nursing Notes * Janett Hurst LPN - 11/14/2019 1:40 PM EST Chief Complaint Patient presents with Emergency Department Follow-Up was at [facility] for low blood count documented in this encounter Plan of Treatment Upcoming Encounters Date Type Specialty Care Team Description 11/25/2019 Office Visit Family Medicine Rajwinder Carter DO [address] [facility] [place] [address] [phone] 11/26/2019 Office Visit [facility]ology [facility] [address] [phone] 12/03/2019 Office Visit Hematology Oncology Tono Sanchez MD [address] [facility] [place] [address] 01/09/2020 Office Visit Gynecology Obstetrics Aman Small, MANAV [address] [place] [phone] 01/29/2020 Nutrition Services Gastroenterology Melissa Omalley, [place] [address] [place] [phone] 09/03/2020 Imaging Radiology Scheduled Orders Name Type Priority Associated Diagnoses Orde r Schedule CBC/DIFF Lab Routine Low hemoglobin Pancytopenia (HCC) Expected: 11/18/2019 (Approximate), Expires: 11/13/2020 Health Maintenance Due Date Last Done [...] as of this encounter Visit Diagnoses Diagnosis Low hemoglobin- Primary Anemia, unspecified Pancytopenia (HCC) Other pancytopenia NG (nonalcoholic steatohepatitis) Other chronic nonalcoholic liver disease documented in this encounter Advance Directives Documents on File Type Date Recorded Patient Data Capture Specialist Expl 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"
--- OUTSIDE RECORDS SUMMARY | 2023-05-10 22:54 | External Medical Summary ---
Author Name Unknown Address [address] [place] [address] Phone Organization K01:[facility] [address] [facility] [address] Laboratory Report Ordering Provider Test Date Status OBDULIO DILLON 11/18/2019 14:43:00 Final Observation Date Value Abnormality Reference (Units ) Status WBC, Total 11/19/2019 01:58 2.85 Below low normal 4.00-10.80 (K/uL) Final RBC 11/19/2019 01:58 2.63 Below low normal 3.85-5.15 (M/uL) Final Hemoglobin 11/19/2019 01:58 7.6 Below low normal 12.0-15.3 (g/dL) Final HCT 11/19/2019 01:58 26.9 Below low normal 36.0-45.2 (%) Final MCV 11/19/2019 01:58 102.3 Above high normal 81.5-97.5 (fL) Final MCH 11/19/2019 01:58 28.9 27.0-34.0 (pg) Final MCHC 11/19/2019 01:58 28.3 Below low normal 32.0-36.0 (g/dL) Final RDW 11/19/2019 01:58 16.6 Above high normal 11.5-15.5 (%) Final Platelets 11/19/2019 01:58 89 Below low normal 140-400 (K/uL) Final MPV 11/19/2019 01:58 14.7 Above high normal 6.6-11.1 (fL) Final nRBC/100 WBC Bld Auto-Rto 11/19/2019 01:58 0 0 (/100 WBCs) Final Segs 11/19/2019 01:59 50.8 40-75 (%) Final Lymphs % 11/19/2019 01:59 29.5 18-42 (%) Final Monos 11/19/2019 01:59 11.9 Above high normal 1-11 (%) Final Eosinophils 11/19/2019 01:59 6.3 Above high normal 0-6 (%) Final Basos 11/19/2019 01:59 1.1 0-2 (%) Final Immature Granulocyte, Percent 11/19/2019 01:59 0.4 0-2 (%) Final Neutrophils Bld 11/19/2019 01:59 1.45 Below low normal 1.8-7.7 (K/uL) Final Lymphs, absolute 11/19/2019 01:59 0.84 Below low normal 1.0-4.8 (K/uL) Final Monos, Abs 11/19/2019 01:59 0.34 0.0-1.1 (K/uL) Final Eos, Abs 11/19/2019 01:59 0.18 0.0-0.7 (K/uL) Final Basos, Abs 11/19/2019 01:59 0.03 0.0-0.2 (K/uL) Final Immature Granulocytes, Number 11/19/2019 01:59 0.01 0.0-0.2 (K/uL) Final Anisocytosis Bld Ql Smear 11/19/2019 01:59 SLIGHT Final Polychromasia Bld Ql Smear 11/19/2019 01:59 SLIGHT Final Hypochromia Bld Ql Smear 11/19/2019 01:59 SLIGHT Final Performing Location [facility] [address] [facility] [address]
--- OUTSIDE RECORDS SUMMARY | 2023-05-10 22:54 | External Medical Summary | Summary of Care ---
Author Name Unknown Organization [facility] Address [place] [address] Care Team Providers Care Field Software Engineer Name Role Phone Rajwinder Carter Primary Care Provider [phone] Encounter Details Date Type Department Care Team Description 11/13/2019 Scan Encounter Unspecified Department <No scans attached> [...] of less than 7.0% ([facility]) INJECT 24 UNITS UNDER THE SKIN AT [...] of less than 7.0% ([facility]) TAKE 1 TABLET BY MOUTH TWICE DAILY [...] Dosing Unit 5 10/07/2019 Active nystatin (NYSTOP) 964004 UNIT/GM powder Apply topically to affected area [...] week 120 mL 1 11/06/2019 0 Active azithromycin (ZITHROMAX Z-SUYAPA) 250 MG TabletIndications:Ca t scratch Take two tablets by mouth on first day, then 1 tablet daily until gone 6 Tab 0 11/06/2019 Active cyclobenzaprine (FLEXERIL) 10 MG Tablet Take [...] pain 01/24/2012 01/17/2017 Genetic Sleep Disorder Research Other*[id number] 05/13/2011 04/07/2016 Obstructive sleep apnea 01/18/2011 12/27/19 [...] Encounters Date Type Specialty Care Team Description 11/14/2019 Office Visit Family Medicine Torrie Arciniega PA-C [address] [place] [facility] [place] [address] 11/25/2019 Office Visit Family Medicine Rajwinder Carter DO [address] [facility] [place] [address] [phone] 11/26/2019 Office Visit [facility]ology [facility] [address] [facility] [address] [phone] 12/03/2019 Office Visit Hematology Oncology Tono Sanchez MD [address] [place] [address] [phone] 01/09/2020 Office Visit Gynecology Obstetrics Aman Small, CNM [address] [place] [id number] 01/29/2020 Nutrition Services Gastroenterology Melissa Omalley, RDN [address] [facility] [place] [id number] 09/03/2020 Imaging Radiology Health Maintenance Due Date [...] on File Type Date Recorded Patient Superintendent Overhead Distribution Expl 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
--- OUTSIDE RECORDS SUMMARY | 2023-05-10 22:55 | External Medical Summary | Summary of Care ---
Author Name Unknown Organization [place] [address] Care Team Providers Care Spinning Frame Changer Name Role Phone Rajwinder Carter Primary Care Provider [phone] Reason for Visit * Reason Comments Test Results Encounter Details Date Type Department Care Team Description 11/12/2019 Telephone Ancillary Department, [address] [id number] Rosio Hunter RN Test Results Allergies Active Allergy Reactions Severity Noted Date Comments Penicillins Rash 02/12/2008 documented as of this encounter (statuses as of 11/13/2019) Medications Medication Sig Dispensed Refills Start Date End Date Status CENTRUM SILVER PO TABS 1 tab daily 1 Tab 0 05/25/2012 Active vitamin c (ASCORBIC ACID) 500 MG Tablet Take 500 mg by mouth daily. 0 Active insulin glargine (LANTUS SOLOSTAR) 100 UNIT/ML SOPNIndications:Type 2 diabetes mellitus with hemoglobin A1c goal of less than 7.0% ([facility]) INJECT 24 UNITS UNDER THE [...] Dosing Unit 5 10/07/2019 Active nystatin (NYSTOP) 297214 UNIT/GM powder Apply topically to affected area 3 times a day. 60 g 1 10/16/2019 Active BD PEN NEEDLE MINI U/F 31G X 5 MMIndications:Type 2 diabetes mellitus with hemoglobin A1c goal of less than 7.0% ([facility]) use with basaglar at bedtime 100 Each 10 10/29/2019 Active clotrimazole (LOTRIMIN) 1 % creamIndications:Sameer h and nonspecific skin eruption Apply topically to affected area 2 times a day for 14 days. Apply to low back 30 g 1 10/30/2019 0 Active Albuterol Sulfate (ALBUTEROL HFA) 108 [...] as of this encounter (statuses as of 11/13/2019) Active Problems Problem Noted Date Thrombocytopenia 05/02/2019 [...] as of this encounter (statuses as of 11/13/2019) Resolved Problems Problem Noted Date Resolved Date [...] pain 01/24/2012 01/17/2017 Genetic Sleep Disorder Research Other*[id number] 05/13/2011 04/07/2016 Obstructive sleep apnea 01/18/2011 12/27/19 [...] as of this encounter (statuses as of 11/13/2019) Immunizations Name Administration Dates Next Due HEP [...] Telephone Encounter - Susan Rosales RN - 11/13/2019 11:21 AM EST Spoke to patient not feeling well today still has headachehaving some dizziness when sits up and a little SOB today advise to go to the ER to see if hemoglobin is worse and may need transfusion * Telephone Encounter - Rajwinder Carter DO - 11/12/2019 5:09 PM EST Based on her lab studies, her blood counts are going down. I do not have a cause for this. I would recommend ED evaluation. * Telephone Encounter - Susan Rosales RN - 11/12/2019 1:42 PM EST Spoke to patient her stools are black she is on ferrous sulfate and a multivitamin. No her bowels have not moved since weekend to do FOBT * Telephone Encounter - Rajwinder Carter DO - 11/12/2019 1:06 PM EST Can we see if she has had any black stools? Did they complete the FOBT yet? * Telephone Encounter - Susan Rosales RN - 11/12/2019 10:03 AM EST Spoke to Frida her only complaint is a headache, denies any increase SOB, no dizziness or increase in weekness * Telephone Encounter - Rajwinder Carter DO - 11/12/2019 9:48 AM EST Pt's anemia continues to worsen since being seen in the ED. Please see if she has any shortness of breath, dizziness, increased weakness of obvious bleeding. * Telephone Encounter - Rosio Hunter RN - 11/12/2019 8:59 AM EST Component Latest Ref Rng & Units 11/06/2019 11/11/2019 WBC 4.00 - 10.80 K/uL 3.52 (L) 2.66 (L) RBC 3.85 - 5.15 M/uL 2.65 (L) 2.65 (L) HGB 12.0 - 15.3 g/dL 8.0 (L) 7.7 (L) HCT 36.0 - 45.2 % 27.7 (L) 27.7 (L) MCV 81.5 - 97.5 fL 104.5 (H) 104.5 (H) documented in this encounter Plan of Treatment Upcoming Encounters Date Type Specialty Care Team Description 11/25/2019 Office Visit Family Medicine Rajwinder Carter DO [address] [place] [address] 11/26/2019 Office Visit Gastroenterology Lyssa Stout CRNP [address] [place] [address] [phone] 12/03/2019 Office Visit Hematology Oncology Tono Sanchez MD [address] [place] [address] [phone] 01/09/2020 Office Visit [facility]necology [facility]st[facility] [address] [facility] [id number] 01/29/2020 Nutrition Services Gastroenterology Melissa Omalley RDN [address] [place] [id number] 09/03/2020 Imaging Radiology Health Maintenance Due Date [...] on File Type Date Recorded Patient Chief Specialist Leed Expl 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
--- OUTSIDE RECORDS SUMMARY | 2023-05-10 22:55 | External Medical Summary ---
Author Name Unknown Address [facility] [place] [address] Phone Organization K01:[place] [address] [place] [place] [address] Laboratory Report Ordering Provider Test Date Status JANE FLORES 11/13/2019 09:32:00 Final Observation Date Value Abnormality Reference (Units ) Status Occult Blood (EIA) 11/14/2019 08:13 POSITIVE Abnormal NEG Final Performing Location [address] [address]
--- OUTSIDE RECORDS SUMMARY | 2023-05-10 22:55 | External Medical Summary | Summary of Care ---
Author Name Unknown Organization [facility] Address [place] [address] Care Team Providers Care Special Ed Assistant Name Role Phone Rajwinder Carter Primary Care Provider [phone] Encounter Details Date Type Department Care Team Description 11/11/2019 Documentation Laboratory, [facility] [address] [place] [address] [facility], [facility] [address] [place] [address] Anemia, unspecified type*; Cirrhosis of liver without ascites, unspecified hepatic cirrhosis type (HCC); DM type 2 nursing care encounter ([facility]); [employer] Research Other*[id number] Allergies Active Allergy Reactions Severity Noted Date Comments Penicillins Rash 02/12/2008 documented as of this encounter (statuses as of 11/12/2019) Medications Medication Sig Dispensed Refills Start Date End Date Status CENTRUM SILVER PO TABS 1 tab daily 1 Tab 0 05/25/2012 Active vitamin c (ASCORBIC ACID) 500 MG Tablet Take 500 mg by mouth daily. 0 Active insulin glargine (LANTUS SOLOSTAR) 100 UNIT/ML SOPNIndications:Type 2 diabetes mellitus with hemoglobin A1c goal of less than 7.0% ([facility]) INJECT 24 UNITS UNDER THE SKIN [...] Dosing Unit 5 10/07/2019 Active nystatin (NYSTOP) 387228 UNIT/GM powder Apply topically to affected area [...] days. Apply to low back 30 g 10/30/2019 0 Active Albuterol Sulfate (ALBUTEROL HFA) [...] as of this encounter (statuses as of 11/12/2019) Active Problems Problem Noted Date Thrombocytopenia 05/02/2019 [...] as of this encounter (statuses as of 11/12/2019) Resolved Problems Problem Noted Date Resolved Date [...] pain 01/24/2012 01/17/2017 Genetic Sleep Disorder Research Other*[id number] 05/13/2011 04/07/2016 Obstructive sleep apnea 01/18/2011 12/27/19 [...] as of this encounter (statuses as of 11/12/2019) Immunizations Name Administration Dates Next Due HEP [...] Travel End documented as of this encounter Nursing Notes * Data, Entry - 11/12/2019 5:33 AM EST Automated conversion to a Documentation Encounter documented in this encounter Plan of Treatment Upcoming Encounters Date Type Specialty Care Team Description 11/25/2019 Office Visit Family Medicine Rajwinder Carter, DO [address] [place] [address] [phone] 11/26/2019 Office Visit Gastroenterology Lyssa Stout CRNP [address] [place] [address] [phone] 12/03/2019 Office Visit Hematology Oncology Tono Sanchez MD [address] [place] [address] [phone] 01/09/2020 Office Visit [facility]necology [facility]st[facility]s [facility] [address] [facility] [place] [id number] 01/29/2020 Nutrition Services Gastroenterology Melissa Omalley RDN [address] [facility] [id number] 09/03/2020 Imaging Radiology Pending Results Name Type Priority Associated Diagnoses Date /Time SERUM PROTEIN, EPG Lab Routine Anemia, unspecified type Cirrhosis of liver without ascites, unspecified hepatic cirrhosis type (HCC) 11/11/2019 2:36 PM EST Health Maintenance Due Date Last Done Comments [...] Procedure Name Priority Date/Time Associated Diagnosis Comments SERUM PROTEIN, EPG Routine 11/11/2019 2: 36 PM EST Anemia, unspecified type Cirrhosis of liver without ascites, unspecified hepatic cirrhosis type (HCC) MYCODE SUBSEQUENT ADULT Routine 11/11/2019 2:35 PM EST [employer] Other*[id number] HEMOGLOBIN A1C Routine 11/11/2019 2:35 PM EST DM type 2 nursing care encounter (HCC) FOLIC ACID Routine 11/11/2019 2:35 PM EST Anemia, unspecified type Cirrhosis of liver without ascites, unspecified hepatic cirrhosis type (HCC) IRON SCREEN, INCLUDING TIBC Routine 11/11/2019 2:35 PM EST Anemia, unspecified type Cirrhosis of liver without ascites, unspecified hepatic cirrhosis type (HCC) CBC/DIFF Routine 11/11/2019 2:35 PM EST Anemia, unspecified type Cirrhosis of liver without ascites, unspecified hepatic cirrhosis type (HCC) FERRITIN Routine 11/11/2019 2:35 PM EST Anemia, unspecified type Cirrhosis of liver without ascites, unspecified hepatic cirrhosis type (HCC) VITAMIN B12 Routine 11/11/2019 2:35 PM EST Anemia, unspecified type Cirrhosis of liver without ascites, unspecified hepatic cirrhosis type (HCC) documented in this encounter Results * MYCODE SUBSEQUENT ADULT (11/11/2019 2:35 PM EST) MYCODE SUBSEQUENT SPECIMEN OBTAINED [facility] Specimen Performing Organization Address City/[facility] Phone Number [facility] [address] [place] [address] * HEMOGLOBIN A1C (11/11/2019 2:35 PM EST) HEMOGLOBIN, A1C 7.3(H) Comment: The use of HbA1c to monitor glycemic status is based on normal hemoglobin and HbA composition. This test should not be used in patients with abnormal hemoglobin that affects the half life of the red blood cell or the in vivo glycation rates. 4.0 - 5.6 % [facility] EST AVG GLUCOSE 163(H) <126 [facility] Specimen Performing Organization Address City/[facility]/[employer] e Phone Number [facility] [address] [place] [address] * CBC/DIFF (11/11/2019 2:35 PM EST) WBC 2.66(L) 4.00 - 10.80 K/uL [facility] RBC 2.65(L) 3.85 - 5.15 M/uL [facility] HGB 7.7(L) 12.0 - 15.3 g/dL [facility] HCT 27.7(L) 36.0 - 45.2 % [facility] MCV 104.5(H) 81.5 - 97.5 fL [facility] MCH 29.1 27.0 - 34.0 pg [facility] MCHC 27.8(L) 32.0 - 36.0 g/dL [facility] RDW 16.6(H) 11.5 - 15.5 % [facility] PLATELET COUNT 87(L) 140 - 400 K/uL [facility] MPV NO RESULT - ABNORMAL PLATELET DISTRIBUTION 6.6 - 11.1 fL [facility] NRBC'S 0 0 /100 WBCs [facility] NEUTS 56.0 40 - 75 % [facility] LYMPHS 27.8 18 - 42 % [facility] MONOS 9.8 1 - 11 % [facility] EOS 5.3 0 - 6 % [facility] BASOS 1.1 0 - 2 % [facility] IMMATURE GRANULOCYTE 0 0 - 2 % [facility] ABS. NEUTS 1.49(L) 1.8 - 7.7 K/uL [facility] ABS. LYMPHS 0.74(L) 1.0 - 4.8 K/uL [facility] ABS. MONOS 0.26 0.0 - 1.1 K/uL [facility] ABS. EOS 0.14 0.0 - 0.7 K/uL [facility] ABS. BASOS 0.03 0.0 - 0.2 K/uL [facility] Specimen Performing Organization Address City/[facility] Phone Number [facility] [address] [place] [address] * IRON SCREEN, INCLUDING TIBC (11/11/2019 2:35 PM EST) IRON 67 33 - 151 ug/dL [facility] IRON BINDING CAP 400 250 - 425 ug/dL [facility] TRANSFERRIN SAT % 17 15 - 55 % [facility] Specimen Performing Organization Address [facility] e Phone Number [facility] [address] [place] [address] * FERRITIN (11/11/2019 2:35 PM EST) FERRITIN 10.6(L) Comment: Postmenopausal women have higher ferritin level than pre-menopausal women. The above reference interval is based on pre-menopausal women. 13 - 150 ng/mL [facility] Specimen Performing Organization Address [facility] e Phone Number [facility] [address] [place] [address] * VITAMIN B12 (11/11/2019 2:35 PM EST) VITAMIN B12 554 232 - 1,245 pg/mL [facility] Specimen Performing Organization Address [facility] e Phone Number [facility] [address] [place] [address] * FOLIC ACID (11/11/2019 2:35 PM EST) FOLIC ACID >20.0 >4.5 ng/mL [facility] Specimen Performing Organization Address [facility] e Phone Number [facility] [address] [place] [address] documented in this encounter Visit Diagnoses Diagnosis Anemia, unspecified type- Primary Cirrhosis of liver without ascites, unspecified hepatic cirrhosis type (HCC) DM type 2 nursing care encounter (HCC) Type II or unspecified type diabetes mellitus without mention of complication, not stated as uncontrolled [employer] Other*[id number] documented in this encounter Advance Directives Documents on File Type Date Recorded Patient Operator Electronic Warfare Expl 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
--- OUTSIDE RECORDS SUMMARY | 2023-05-10 22:55 | External Medical Summary ---
Author Name Unknown Address [facility] [place] [address] Phone Organization K01:[place] [address] [place] [address] Laboratory Report Ordering Provider Test Date Status JANE FLORES 11/11/2019 14:35:00 Final Observation Date Value Abnormality Reference (Units ) Status Folic Acid 11/12/2019 02:22 >20.0 >4.5 (ng/mL) Final Performing Location [place] [id number]
--- OUTSIDE RECORDS SUMMARY | 2023-05-10 22:55 | External Medical Summary ---
Author Name Unknown Address [facility] [place] [address] Phone Organization K01:[place] [address] Laboratory Report Ordering Provider Test Date Status JANE FLORES 11/11/2019 14:35:00 Final Observation Date Value Abnormality Reference (Units ) Status Ferritin 11/12/2019 02:22 10.6 Below low normal 13-150 (ng/mL) Final Performing Location [place] [id number]
--- OUTSIDE RECORDS SUMMARY | 2023-05-10 22:55 | External Medical Summary | Summary of Care ---
Author Name Unknown Organization [facility] Address [place] [address] Care Team Providers Care Catalogue Librarian Name Role Phone Rajwinder Carter DO Primary Care Provider [phone] Reason for Visit * Reason Comments Letter Requests Encounter Details Date Type Department Care Team Description 10/11/[address] [facility] [address] [place] [address] Rajwinder Carter DO [address] [place] [address] Letter Requests Allergies Active Allergy Reactions Severity Noted Date [...] than 7.0% ([facility]) INJECT 24 UNITS UNDER [...] 06/06/2019 Active potassium chloride ER 10 MEQ TBCRIndications:Hyp okalemia TAKE 1 TABLET ONCE DAILY WITH FOOD 30 Tab 4 06/06/2019 Active SM ASPIRIN ADULT LOW STRENGTH 81 MG TBEC TAKE 1 TABLET BY MOUTH ONCE DAILY 30 Tab 4 06/06/2019 Active MetFORMIN (GLUCOPHAGE) 1000 MG TabletIndications:T ype 2 diabetes mellitus with hemoglobin A1c goal of less than 7.0% ([facility]) TAKE 1 TABLET BY [...] Pen Syringe Dosing Unit 5 10/07/2019 Active Dulaglutide (TRULICITY) 1.5 MG/0.5ML SOPNIndications:Typ e 2 diabetes mellitus with hemoglobin A1c goal of less than 7.0% ([facility]) Inject 1 syringeful once weekly 4 Pre-filled Pen Syringe Dosing Unit 5 05/06/2019 10/30/19 20 Discontinu ed(Patient preference /discontin uation) gabapentin (NEURONTIN) 300 MG Capsule One pill in am, one midday, two in pm, 180 Cap 5 05/06/2019 11/07/19 20 Discontinu ed(Refill) tamsulosin (FLOMAX) 0.4 MG Capsule TAKE 1 CAPSULE BY MOUTH ONCE DAILY 30 Cap 3 06/06/2019 11/07/19 20 Discontinu ed(Refill) nadolol (CORGARD) 20 MG Tablet Take 2 Tabs by mouth daily. 60 Tab 3 06/06/2019 11/07/19 20 Discontinu ed(Refill) albuterol HFA (PROAIR HFA) 108 (90 BASE) MCG/ACT inhaler Inhale 2 Puffs by mouth every 4 hours as needed for Cough or Wheezing. With spacer 1 Inhaler 1 07/06/2019 11/06/19 20 Discontinu ed(Refill) cyclobenzaprine (FLEXERIL) 10 MG Tablet TAKE 1 TABLET BY MOUTH AT BEDTIME 30 Tab 0 10/09/2019 11/07/19 20 Discontinu ed(Refill) documented as of this encounter [...] pain 01/24/2012 01/17/2017 Genetic Sleep Disorder Research Other*[id number] 05/13/2011 04/07/2016 Obstructive sleep apnea 01/18/2011 12/27/19 [...] Telephone Encounter - Jovana Lambert, UMA - 11/12/2019 9:06 AM EST Faxed to [phone] Also to [facility] * Telephone Encounter - Rajwinder Carter DO - 11/11/2019 4:51 PM EST Letter completed. On Jovana's desk. * Telephone Encounter - Carlos Germain LPN - 10/29/2019 3:52 PM EST Irma calling to check on status of below message. States that they are looking for a letter of medical necessity. Call back number: [phone] * Telephone Encounter - Caron Vargas LPN - 10/22/2019 1:23 PM EST Aleyda from home care delivered calling about this. They have not received the letter yet. Please advise if this can or cannot be done. Phone # * Telephone Encounter - Jovana Lambert RN - 10/11/2019 2:08 PM EST Home Care Delivery Letter asking for letter Letter of medical necessity On your letter head Patient name Patient Statement that patient needs excess supplies Quantity Needed asking for 15 every 31 days ( Limits are 180 for 91 days ) PCP Signature and date Fax to Letter on your desk documented in this encounter Plan of Treatment Upcoming Encounters Date Type Specialty Care Team Description 11/25/2019 Office Visit Family Medicine Rajwinder Carter DO [address] [facility] [place] [id number] 11/26/2019 Office Visit Gastroenterology Lyssa Stout CRNP [address] [facility] [place] [address] [phone] 12/03/2019 Office Visit Hematology Oncology Tono Sanchez MD [address] [facility] [place] [address] [phone] 01/09/2020 Office Visit Gynecology Obstetrics Aman Small, CNM [address] [place] [id number] 01/29/2020 Nutrition Services Gastroenterology Melissa Omalley, SAMANTHA [...] Documents on File Type Date Recorded Patient Fruit Grader Expl 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
--- OUTSIDE RECORDS SUMMARY | 2023-05-10 22:55 | External Medical Summary | Summary of Care ---
Author Name Unknown Organization [facility] Address [place] [address] Care Team Providers Care Senior Media Buyer Name Role Phone Rajwinder Carter DO Primary Care Provider [phone] Reason for Visit * Reason Comments Letter Requests Encounter Details Date Type Department Care Team Description 10/11/2019 Telephone [facility] [address] [place] [address] Rajwinder Carter DO [address] [place] [address] Letter Requests Allergies Active Allergy Reactions Severity Noted Date Comments Penicillins Rash 02/12/2008 documented as of this encounter (statuses as of 11/11/2019) Medications Medication Sig Dispensed Refills Start Date [...] 7.0% ([facility]) Inject 1 syringeful once weekly [...] as of this encounter (statuses as of 11/11/2019) Active Problems Problem Noted Date Thrombocytopenia 05/02/2019 [...] as of this encounter (statuses as of 11/11/2019) Resolved Problems Problem Noted Date Resolved Date [...] pain 01/24/2012 01/17/2017 Genetic Sleep Disorder Research Other*[id number] 05/13/2011 04/07/2016 Obstructive sleep apnea 01/18/2011 12/27/19 [...] as of this encounter (statuses as of 11/11/2019) Immunizations Name Administration Dates Next Due HEP [...] letter of medical necessity. Call back number: [phone] * Telephone Encounter - Caron Vargas LPN [...] Family Medicine [facility] [address] [facility] [id number] 11/26/2019 Office Visit Gastroenterology Lyssa Stout CRNP [address] [facility] [place] [address] 12/03/2019 Office Visit Hematology Oncology Tono Sanchez MD [address] [place] [address] [phone] 01/09/2020 Office Visit Gynecology Obstetrics Aman Small CNM [address] [place] [address] [phone] 01/29/2020 Nutrition Services Gastroenterology Melissa Omalley, SAMANTHA [address] [place] [address] [phone] 09/03/2020 Imaging Radiology Health Maintenance Due Date Last Done Comments Zoster Vaccines (2 of 3) 02/03/2016 12/09/2015 DIABETES-EYE EXAM 06/12/2019 06/12/2018, , 06/12/2018, Additional history exists DIABETES-HGBA1C EVERY 6 MONTHS 10/06/2019 04/05/2019, 09/21/2018, 02/13/2018, Additional history exists PAP SMEAR-EVERY 3 YRS,AGES 21-65 10/10/2019 10/10/2016, 07/02/2014, 04/16/2013, Additional history exists Yearly B-12 12/25/2019 12/24/2018, 02/13/2018 DIABETES-URINE MICROALBUMIN EVERY 12 MONTHS 01/12/2020 01/11/2019, 08/24/2018, 07/19/2018, Additional history exists BREAST CANCER SCREENING DISCUSSION YEARLY AGES 40-75 09/02/2020 09/02/2019, 04/04/2018, 01/18/2017, Additional history exists DIABETES-FOOT EXAM 11/06/2020 11/06/2019, 0 01/09/2019, 12/26/2017, Additional history exists DTaP,Tdap,and Td Vaccines (3 [...] Documents on File Type Date Recorded Patient Insulator Tester Expl 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
--- OUTSIDE RECORDS SUMMARY | 2023-05-10 22:55 | External Medical Summary | Summary of Care ---
Author Name Unknown Organization [facility] Address [place] [address] Care Team Providers Care Research Epidemiologist Name Role Phone Rajwinder Carter DO Primary Care Provider [phone] Reason for Visit * Reason Comments Emergency Department Follow-Up Encounter Details Date Type Department Care Team Description 11/14/2019 Telephone [facility] [address], [place] [id number] Rajwinder Carter DO [address], [place] [id number] Emergency Department Follow-Up Allergies Active Allergy Reactions [...] Dosing Unit 5 10/07/2019 Active nystatin (NYSTOP) 351945 UNIT/GM powder Apply topically to affected area [...] pain 01/24/2012 01/17/2017 Genetic Sleep Disorder Research Other*[id number] 05/13/2011 04/07/2016 Obstructive sleep apnea 01/18/2011 12/27/19 [...] encounter Miscellaneous Notes * Telephone Encounter - Marcy Mendez LPN - 11/14/2019 8:37 AM EST Emergency Department Follow Up: Did patient call the office before going to ER: Yes When was patient seen: 11/13/2019 [facility] ED: [facility] What were they seen for: low blood counts, SOB What testing did they have done: lab work What did ED think was wrong (dx): low blood count, advised to see PCP today or tomorrow Any new medications prescribed: none How is patient feeling today: still a little fatigued, SOB Patient concerns today: Scheduled today with Torrie. * Telephone Encounter - Marcelle Rosales OSA - 11/14/2019 8:35 AM EST Reason for patient's call: ER Follow up from [place] on 11/14/19 Caller was transferred to Marcy at the nurse line. documented in this encounter Plan of Treatment Upcoming Encounters Date Type Specialty Care Team Description 11/14/2019 Office Visit Family [facility]cinie[facility] [address] [facility] [address] [phone] 11/25/2019 Office Visit Family Medicine [facility]inder [facility] [address] [facility] [address] [phone] 11/26/2019 Office Visit Gastroenterology Lyssa Stout CRNP [address] [facility] [place] [address] [phone] 12/03/2019 Office Visit Hematology Oncology Tono Sanchez MD [address] [facility] [place] [facility] [place] [address] [phone] 01/09/2020 Office Visit Gynecology Obstetrics Aman Small, CNM [address] [place] [id number] 01/29/2020 Nutrition Services Gastroenterology Melissa Omalley, RDN [address] [place] [address] [phone] 09/03/2020 Imaging Radiology Health Maintenance Due Date [...] Documents on File Type Date Recorded Patient Cougar Hunter Expl 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
--- OUTSIDE RECORDS SUMMARY | 2023-05-10 22:55 | External Medical Summary ---
Author Name Unknown Address [facility] [place] [address] Phone Organization K01:[place] [address] [place] [address] Laboratory Report Ordering Provider Test Date Status SANDRAJANE 11/11/2019 14:35:00 Final Observation Date Value Abnormality Reference (Units ) Status Iron 11/12/2019 01:25 67 33-151 (ug/dL ) Final Iron-binding capacity 11/12/2019 01:25 400 2 50-425 (ug/dL) Final Transferrin Sat % 11/12/2019 01:25 17 15-55 (%) Final Performing Location [address] [address]
--- OUTSIDE RECORDS SUMMARY | 2023-05-10 22:55 | External Medical Summary ---
Author Name Unknown Address [facility] [place] [address] Phone Organization K01:[place] [address] [id number] Laboratory Report Ordering Provider Test Date Status SAMPLE,MYCODE 11/11/2019 14:35:00 Final Observation Date Value Abnormality Reference (Units ) Status MYCODE SUBSEQUENT 11/12/2019 00:48 SPECIMEN OBTAINED Final Performing Location [place] [address] [facility] [address]
--- OUTSIDE RECORDS SUMMARY | 2023-05-10 22:55 | External Medical Summary ---
Author Name Unknown Address [facility] [place] [address] Phone Organization K01:[facility] [address] [address] Laboratory Report Ordering Provider Test Date Status JANE FLORES 11/11/2019 14:36:00 Final Observation Date Value Abnormality Reference (Units) Status Protein 11/12/2019 01:32 6.85 6.0-8.3 (g/dL) Final Albumin MFr.DF SerPl Elph 11/12/2019 14:26 2.99 Below low normal 3.3-4.4 (g/dL) Final Alpha1 Glob MFr.DF SerPl Elph 11/12/2019 14:26 0.33 Above high normal 0.1-0.3 (g/dL) Final Alpha2 Glob MFr.DF SerPl Elph 11/12/2019 14:26 0.80 0.6-1.0 (g/dL) Final B-Globulin MFr.DF SerPl Elph 11/12/2019 14:26 1.10 0.8-1.3 (g/dL) Final Gamma glob MFr.DF SerPl Elph 11/12/2019 14:26 1.63 0.7-1.7 (g/dL) Final Prot Pattern SerPl Elph-Imp 11/12/2019 14:26 No paraprotein detected. Final Performing Location [place] [address] [id number]
--- OUTSIDE RECORDS SUMMARY | 2023-05-10 22:55 | External Medical Summary ---
Author Name Unknown Address [facility] [place] [address] Phone Organization K01:[place] [address] [id number] Laboratory Report Ordering Provider Test Date Status JANE FLORES 11/11/2019 14:35:00 Final Observation Date Value Abnormality Reference (Units ) Status Vitamin B12 11/12/2019 02:22 607 220-3431 (p g/mL) Final Performing Location [place] [id number]
--- OUTSIDE RECORDS SUMMARY | 2023-05-10 22:55 | External Medical Summary | Summary of Care ---
Author Name Unknown Organization [facility] Address [place] [address] Care Team Providers Care Deputy Controller Name Role Phone Rajwinder Carter DO Primary Care Provider [phone] Reason for Visit * Reason Comments Forms Request Encounter Details Date Type Department Care Team Description 11/05/2019 Telephone [facility] [address] [place] [address] Rajwinder Carter DO [address] [place] [address] Forms Request Allergies Active Allergy Reactions Severity [...] less than 7.0% ([facility]) INJECT 24 UNITS UNDER [...] less than 7.0% ([facility]) TAKE 1 TABLET BY [...] Dosing Unit 5 10/07/2019 Active nystatin (NYSTOP) 095122 UNIT/GM powder Apply topically to affected area [...] back 30 g 1 10/30/2019 0 Active documented as of this encounter [...] 04/04/2019 Bladder tumor 10/11/2017 02/13/2018 Chronic indwelling [place] [...] pain 01/24/2012 01/17/2017 Genetic Sleep Disorder Research Other*[id number] 05/13/2011 04/07/2016 Obstructive sleep apnea 01/18/2011 12/27/19 [...] Encounter - Rajwinder Carter DO - 11/11/2019 4:54 PM EST See other encounter. On Jovana's desk. * Telephone Encounter - Vivian Izquierdo LPN - 11/11/2019 4:18 PM EST Hector from [facility] calling asking if letter of medical necessity was received. Advised from message it was place on providers desk on 11/05. Hector asking what the turn around time is to receive feed back. Please advise. * Telephone Encounter - Jovana Lambert RN - 11/05/2019 11:18 AM EST [facility] Asking for Letter of Medical Necessity Name Statement that substantiates the need for excess supplies Amount 180 Signed Form on your desk Faxed to [phone] documented in this encounter Plan of Treatment Upcoming Encounters Date Type Specialty Care Team Description 11/25/2019 Office Visit Family Medicine Rajwinder Carter DO [address] [place] [address] [phone] 11/26/2019 Office Visit Gastroenterology Lyssa Stout CRNP [address] [facility] [address] [phone] 12/03/2019 Office Visit Hematology Oncology Tono Sanchez MD [address] [place] [address] [phone] 01/09/2020 Office Visit Gynecology Obstetrics Aman Small CNM [address] [place] [id number] 01/29/2020 Nutrition Services Gastroenterology Melissa Omalley, SAMANTHA [address] [place] [phone] 09/03/2020 Imaging Radiology Health Maintenance Due Date [...] Documents on File Type Date Recorded Patient Handkerchief Cutter Expl 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
--- OUTSIDE RECORDS SUMMARY | 2023-05-10 22:56 | External Medical Summary | Summary of Care ---
Author Name Unknown Organization [facility] Address [place] [address] Care Team Providers Care Sea Shell Gatherer Name Role Phone Rajwinder Carter DO Primary Care Provider [phone] Reason for Referral * Evaluate & Treat - Unlimited Visits (Within 10 days (routine)) Status Reason Specialty Diagnoses / Procedures Referred By Contact Referred To Contact Pending Review Specialty Services Required Hematology Diagnoses Anemia, unspecified type Cirrhosis of liver without ascites, unspecified hepatic cirrhosis type (HCC) Rajwinder Carter DO [address] [place] [address] Reason for Visit * Reason Comments Test Results NEW PATIENT LONNIE JACKSON Encounter Details Date Type Department Care Team Description 11/08/2019 Telephone [facility] [address] [place] [address] Rajwinder Carter DO [address] [place] [address] [phone] Test Results; NEW PATIENT (LONNIE JACKSON) Allergies Active Allergy Reactions Severity Noted Date Comments Penicillins Rash 02/12/2008 documented as of this encounter (statuses as of 11/08/2019) Medications Medication Sig Dispensed Refills Start Date [...] Dosing Unit 5 10/07/2019 Active nystatin (NYSTOP) 340138 UNIT/GM powder Apply topically to affected area [...] as of this encounter (statuses as of 11/08/2019) Active Problems Problem Noted Date Thrombocytopenia 05/02/2019 [...] as of this encounter (statuses as of 11/08/2019) Resolved Problems Problem Noted Date Resolved Date [...] pain 01/24/2012 01/17/2017 Genetic Sleep Disorder Research Other*[id number] 05/13/2011 04/07/2016 Obstructive sleep apnea 01/18/2011 12/27/19 [...] as of this encounter (statuses as of 11/08/2019) Immunizations Name Administration Dates Next Due HEP [...] Telephone Encounter - Janett Triana OSA - 11/08/2019 1:31 PM EST Called and spoke to patient in regards to a HEM referral. Patient agreed. Patient is scheduled for first available with for 12-03-19. * Telephone Encounter - Rosio Hunter RN - 11/08/2019 12:41 PM EST Spoke to patient and caregiver. Patient not having any sob or chest pain. Dizziness only when moving fast. No bleeding that they are aware of. Advised that Dr Hakeem Carter would like patient to come inand get labs drawn on Monday and that she has referred patient to Hematology. Patient in agreeance and will have someone bring her Monday to have labs drawn. Dr. Carter would also like patient to have Fobt test completed reviewed with the caregiver Wanda and she can help patient get. They will pickling operator the Fobt kit when they come in to get labs on Monday. Patient advised if she has any sob or chest pain go to er. * Telephone Encounter - Janett Triana OSA - 11/08/2019 8:29 AM EST Once patient is aware of results. We will call and schedule patient for a HEM appt. * Telephone Encounter - Rajwinder Carter DO - 11/08/2019 7:12 AM EST Please let pt know: 1. Her anemia persists on bloodwork compared to the ED. Is she having any lightheadedness or shortness of breath? Is she having any bleeding that she is aware of? 2. We will have her see hematology. She will need a repeat labs on Monday. I would like her to havea stool sample for blood as well. Can her caregiver help to get this? This may be related to her cirrhosis. documented in this encounter Plan of Treatment Upcoming Encounters Date Type Specialty Care Team Description 11/25/2019 Office Visit Family Medicine Rajwinder Carter DO [address] [place] [address] 11/26/2019 Office Visit Gastroenterology Lyssa Stout CRNP [address] [place] [address] [phone] 12/03/2019 Office Visit Hematology Oncology Tono Sanchez MD [address] [place] [address] [phone] 01/09/2020 Office Visit Gynecology Obstetrics Aman Small CNM [address] [facility] [place] [phone] 01/29/2020 Nutrition Services Gastroenterology Melissa Omalley RDN [address] [facility] [address] [place] [phone] 09/03/2020 Imaging Radiology Scheduled Orders Name Type Priority Associated Diagnoses Orde r Schedule CBC/DIFF Lab Routine Anemia, unspecified type Cirrhosis of liver without ascites, unspecified hepatic cirrhosis type (HCC) Expected: 11/08/2019 (Approximate), Expires: 11/08/2020 IRON SCREEN, INCLUDING TIBC Lab Routine Anemia, unspecified type Cirrhosis of liver without ascites, unspecified hepatic cirrhosis type (HCC) Expected: 11/08/2019 (Approximate), Expires: 11/07/2020 FERRITIN Lab Routine Anemia, unspecified type Cirrhosis of liver without ascites, unspecified hepatic cirrhosis type (HCC) Expected: 11/08/2019 (Approximate), Expires: 11/07/2020 SERUM PROTEIN, EPG Lab Routine Anemia, unspecified type Cirrhosis of liver without ascites, unspecified hepatic cirrhosis type (HCC) Expected: 11/08/2019 (Approximate), Expires: 11/07/2020 VITAMIN B12 Lab Routine Anemia, unspecified type Cirrhosis of liver without ascites, unspecified hepatic cirrhosis type (HCC) Expected: 11/08/2019 (Approximate), Expires: 11/07/2020 FOLIC ACID Lab Routine Anemia, unspecified type Cirrhosis of liver without ascites, unspecified hepatic cirrhosis type (HCC) Expected: 11/08/2019 (Approximate), Expires: 11/07/2020 FECAL OCCULT BLOOD, EIA (FOBT) Lab Routine Anemia, unspecified type Expected: 11/15/2019 (Approximate), Expires: 11/07/2020 Scheduled Referrals Name Type Priority Associated Diagnoses Orde r Schedule HEMATOLOGY REFERRAL OP Referral Within 10 days (routine) Anemia, unspecified type Cirrhosis of liver without ascites, unspecified hepatic cirrhosis type (HCC) Ordered: 11/08/2019 Health Maintenance Due Date Last Done Comments [...] cirrhosis type (HCC) documented in this encounter Advance Directives Documents on File Type Date Recorded Patient Cardboard Cutter Expl 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
--- OUTSIDE RECORDS SUMMARY | 2023-05-10 22:56 | External Medical Summary | Summary of Care ---
Author Name Unknown Organization [facility] Address [place] [address] Care Team Providers Care Auto Clutch Rebuilder Name Role Phone Rajwinder Carter DO Primary Care Provider [phone] Reason for Visit * Reason Comments Medication Pre-auth Encounter Details Date Type Department Care Team Description 11/07/[address] [facility] [address] [place] [address] Rajwinder Carter DO [address], [place] [phone] Medication Pre-auth Allergies Active Allergy Reactions Severity Noted Date Comments Penicillins Rash 02/12/2008 documented as of this encounter (statuses as of 11/07/2019) Medications Medication Sig Dispensed Refills Start Date [...] Dosing Unit 5 10/07/2019 Active nystatin (NYSTOP) 825001 UNIT/GM powder Apply topically to affected area 3 times a day. 60 g 1 10/16/2019 Active BD PEN NEEDLE MINI U/F 31G X 5 MMIndications:Type 2 diabetes mellitus with hemoglobin A1c goal of less than 7.0% ([facility]) use with basaglar at [...] days. Shampoo twice a week 120 mL 11/06/2019 0 Active azithromycin (ZITHROMAX Z-SUYAPA) 250 [...] as of this encounter (statuses as of 11/07/2019) Active Problems Problem Noted Date Thrombocytopenia 05/02/2019 [...] as of this encounter (statuses as of 11/07/2019) Resolved Problems Problem Noted Date Resolved Date [...] pain 01/24/2012 01/17/2017 Genetic Sleep Disorder Research Other*[id number] 05/13/2011 04/07/2016 Obstructive sleep apnea 01/18/2011 12/27/19 [...] as of this encounter (statuses as of 11/07/2019) Immunizations Name Administration Dates Next Due HEP [...] Telephone Encounter - Josselin Gaspar LPN - 11/07/2019 4:48 PM EST Attempted auth on cover my meds, states [facility] doesn't manage the PA for this patient. Called the pharmacy-verified information, all correct. Called [facility], pharmacy services, . They had [facility] as primary and [facility] as secondary. He flipped the benefits-test claim was paid. Pharmacy made aware. Claim was run through and paid. They will make the patient aware. * Telephone Encounter - Tamara Dasilva PHARM Tech - 11/07/2019 8:40 AM EST Pharmacy calling to inform doctor that the pt's insurance will not pay for this medication without a completed prior authorization. . Please complete with the following information: Pt is almost out of medication, please complete at your earliest convienence if appropropriate. Patient name: Shaina Bustos ID number: [id number] BIN number: [id number] PCN number: [id number] Group number: None Subscriber name: Shaina Bustos Primary or Secondary Insurance:Secondary Medication: Semaglutide, 1 MG/DOSE, (OZEMPIC, 1 MG/DOSE,) 2 MG/1.5ML SOPN Reason for Request: Primary is paying, secondary is not wanting to Pharmacy: [email or web address] [phone] Rx plan and phone number: [facility], Formulary alternatives: n/a List of medications pt has tried and failed: n/a Thank you, Tamara Dasilva Seed District Sales Manager [email or web address] 11/07/2019, 8:40 AM documented in this encounter Plan of Treatment Upcoming Encounters Date Type Specialty Care Team Description 11/25/2019 Office Visit Family Medicine [facility] [address] [facility] [address] 11/26/2019 Office Visit Gastroenterology Lyssa Stout, ZAK [address] [facility] [place] [address] 01/09/2020 Office Visit Gynecology Obstetrics Aman Small, CNM [address] [place] [phone] 01/29/2020 Nutrition Services Gastroenterology Melissa Omalley, RDN [address] [place] [phone] 09/03/2020 Imaging Radiology Health Maintenance Due Date [...] on File Type Date Recorded Patient Water Superintendent Expl 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
--- OUTSIDE RECORDS SUMMARY | 2023-05-10 22:56 | External Medical Summary | Summary of Care ---
Author Name Unknown Organization [facility] Address [place] [address] Care Team Providers Care Repairer Sash And Door Name Role Phone Rajwinder Carter DO Primary Care Provider [phone] Reason for Visit * Reason Comments Med Request Encounter Details Date Type Department Care Team Description 09/30/2019 Telephone [facility] [address] [place] [address] Rajwinder Carter DO [address] [place] [address] Med Request Allergies Active Allergy [...] goal of less than 7.0% ([facility]) INJECT 24 UNITS UNDER THE SKIN AT BED TIME 15 mL 3 02/22/2019 Active ferrous sulfate (FEOSOL) 325 (65 FE) MG Tablet Take 325 mg by mouth daily with breakfast. 0 Active furosemide (LASIX) 20 MG Tablet Take 20 mg by mouth daily. Every other day 0 Active traZODone (DESYREL) 50 MG TabletIndications:Slee p disturbances TAKE 1 TABLET BY MOUTH AT BEDTIME 30 Tab 4 06/06/2019 Active escitalopram (LEXAPRO) 20 MG Tablet TAKE 1 TABLET BY MOUTH ONCE DAILY 30 Tab 5 06/06/2019 Active Additional Information Patient taking differently: TAKE 1 TABLET BY MOUTH ONCE DAILY, pt dose is 40mg daily, Reported on 06/06/2019 12:38 PM levothyroxine (LEVOXYL) 150 MCG TabletIndications:Acqu ired hypothyroidism TAKE 1 TABLET BY MOUTH ONCE DAILY at least 30 minutes prior to breakfast or other meds 30 Tab 10 06/06/2019 Active potassium chloride ER 10 MEQ TBCRIndications:[place] lemia TAKE 1 TABLET ONCE DAILY WITH FOOD 30 Tab 4 06/06/2019 Active SM ASPIRIN ADULT LOW STRENGTH 81 MG TBEC TAKE 1 TABLET BY MOUTH ONCE DAILY 30 Tab 4 06/06/2019 Active MetFORMIN (GLUCOPHAGE) 1000 MG TabletIndications:Type 2 diabetes mellitus with hemoglobin A1c goal of less than 7.0% ([facility]) TAKE 1 TABLET BY MOUTH TWICE DAILY WITH FOOD 180 Tab 3 07/04/2019 Active fluticasone (FLONASE) 50 MCG/ACT nasal sprayIndications:Sinus congestion INSTILL 2 SPRAYS INTO EACH NOSTRIL DAILY DIRECTED 16 g 5 08/01/2019 Active atorvaSTATin (LIPITOR) 40 MG TabletIndications:Dysl ipidemia, goal LDL below 70 TAKE 1 TABLET BY MOUTH EVERY NIGHT AT BEDTIME 90 Tab 0 08/12/2019 Active furosemide (LASIX) 20 MG TabletIndications:Loca lized edema,Venous stasis dermatitis of both lower extremities TAKE 1 TABLET BY MOUTH once daily NEEDED FoR EDEMA 30 Tab 4 09/13/2019 Active oxybutynin (DITROPAN) 5 MG Tablet Take 1 Tab by mouth 2 times a day. 60 Tab 4 09/13/2019 Active pantoprazole (PROTONIX) 20 MG TBECIndications:Gastro esophageal reflux disease, esophagitis presence not specified,NAFLD (nonalcoholic fatty liver disease),Other cirrhosis of liver (HCC) Take 2 Tabs by mouth daily. 60 Tab 5 09/13/2019 Active documented as of this encounter (statuses [...] pain 01/24/2012 01/17/2017 Genetic Sleep Disorder Research Other*[id number] 05/13/2011 04/07/2016 Obstructive sleep apnea 01/18/2011 12/27/19 [...] Telephone Encounter - Susan Rosales RN - 10/01/2019 10:06 AM EST Left message for patient to return call to office need to know more about her symptoms see message below from Raul may need seen * Telephone Encounter - Rajwinder Carter DO - 09/30/2019 4:01 PM EST Given fluid in her lungs and possible heart issue, I would not suggest albuterol nebulizer. Please see if she is having symptoms beyond what she was seen for on 09/27. * Telephone Encounter - Richard Juan CPhT - 09/30/2019 2:39 PM EST [facility] calling on behalf of the pt to request refills for Albuterol nebulizer solution. Uponchart review, this has not been ordered for the pt beyond being administered in the office. Pharmacy did not have any information about the pt having had this medication before but pt states they hadthis from a rehab provider previously. Called pt for more information. Pt advised this was previously prescribed by Gia Nayak in 2018.Pt states she was using Albuterol 2.5mg/3mL, but she does not recall the directions on her previousRX. Pt would like a new order sent to [facility] [id number] If youhave any further questions or concerns, pt may be reached at [phone]. Thanks, Richard Juan CPhT [facility] 09/30/2019, 2:48 PM documented in this encounter Plan of Treatment Upcoming Encounters Date Type Specialty Care Team Description 11/25/2019 Office Visit Family Medicine Rajwinder Carter DO [address] [place] [facility] [place] [address] [phone] 11/26/2019 Office Visit Gastroenterology Lyssa Stout CRNP [address] [facility] [place], [place] [address] [phone] 12/03/2019 Office Visit Hematology Oncology Tono Sanchez MD [address] [place] [address] [phone] 01/09/2020 Office Visit Gynecology Obstetrics Aman Small, BOOM [address] [place] [id number] 01/29/2020 Nutrition Services Gastroenterology Melissa Omalley, [place] [address] [place] [phone] 09/03/2020 Imaging Radiology Health Maintenance Due Date [...] Documents on File Type Date Recorded Patient Guest Relations Coordinator Expl 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
--- OUTSIDE RECORDS SUMMARY | 2023-05-10 22:56 | External Medical Summary | Summary of Care ---
Author Name Unknown Organization [facility] [place] [address] Care Team Providers Care Hybrid Technologist Name Role Phone Rajwinder Carter DO Primary Care Provider [phone] Reason for Visit * Reason Comments Medication Pre-auth Encounter Details Date Type Department Care Team Description 11/07/2019 Telephone [facility] [address], [place] [id number] Rajwinder Carter DO [address] [place], [place] [phone] Medication Pre-auth Allergies Active Allergy Reactions Severity [...] less than 7.0% ([facility]) INJECT 24 UNITS UNDER THE SKIN AT [...] Dosing Unit 5 10/07/2019 Active nystatin (NYSTOP) 583760 UNIT/GM powder Apply topically to affected area [...] pain 01/24/2012 01/17/2017 Genetic Sleep Disorder Research Other*[id number] 05/13/2011 04/07/2016 Obstructive sleep apnea 01/18/2011 12/27/19 [...] [facility], . They had [facility] as primary and [facility] as secondary. He flipped the benefits-test claim [...] appropropriate. Patient name: Shaina Bustos ID number: [id number] BIN number: [id number] PCN number: [id number] Group number: None Subscriber name: Shaina Bustos Primary or Secondary Insurance:Secondary Medication: Semaglutide, 1 MG/DOSE, (OZEMPIC, 1 MG/DOSE,) 2 MG/1.5ML SOPN Reason for Request: Primary is paying, secondary is not wanting to Pharmacy: [facility] [phone] Rx plan and phone number: [facility], Formulary alternatives: n/a List of medications pt has tried and failed: n/a Thank you, Tamara Dasilva Hollow Handle Bench Worker [facility] 11/07/2019, 8:40 AM documented in this encounter Plan of Treatment Upcoming Encounters Date Type Specialty Care Team Description 11/25/2019 Office Visit Family Medicine Rajwinder Carter DO [address] [facility], [place] [id number] 11/26/2019 Office Visit [facility]ology [facility] [address] [facility] [address] [phone] 12/03/2019 Office Visit Hematology Oncology Tono Sanchez MD [address] [place] [address] [phone] 01/09/2020 Office Visit Gynecology Obstetrics Aman Small, MANAV [address] [place] [address] [phone] 01/29/2020 Nutrition Services Gastroenterology Melissa Omalley, SAMANTHA [address] [place] [id number] 09/03/2020 Imaging Radiology Health Maintenance Due Date [...] Documents on File Type Date Recorded Patient Kiln Remover Expl 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
--- OUTSIDE RECORDS SUMMARY | 2023-05-10 22:56 | External Medical Summary | Summary of Care ---
Author Name Unknown Organization [facility] Address [place] [address] Care Team Providers Care Registration Scheduling Specialist Name Role Phone Rajwinder Carter DO Primary Care Provider [phone] Reason for Visit * Reason Comments Medication Refill Encounter Details Date Type Department Care Team Description 11/07/2019 Refill [facility] [address] [place] [address] Rajwinder Carter DO [address] [place] [address] [phone] Allergies Active Allergy Reactions Severity Noted Date [...] of less than 7.0% ([facility]) INJECT 24 UNITS UNDER THE [...] of less than 7.0% ([facility]) TAKE 1 TABLET BY [...] Dosing Unit 5 10/07/2019 Active nystatin (NYSTOP) 320329 UNIT/GM powder Apply topically to affected area 3 times a day. 60 g 1 10/16/2019 Active BD PEN NEEDLE MINI U/F 31G X 5 MMIndications:Type 2 diabetes mellitus with hemoglobin A1c goal of less than 7.0% ([facility]) use with basaglar at bedtime 100 Each 10 10/29/2019 Active clotrimazole (LOTRIMIN) 1 % creamIndications:Ra sh and nonspecific skin eruption Apply topically to affected area 2 times a day for 14 days. Apply to low back 30 g 10/30/2019 11/13/19 20 Active Albuterol Sulfate (ALBUTEROL HFA) 108 (90 BASE) MCG/ACT inhalerIndications: Intermittent asthma with reliever use up to twice per week without complication Inhale 2 Puffs by mouth every 4 hours as needed for Cough or Wheezing. With spacer 16 g 11/06/2019 Active ketoconazole 2 % shampooIndications: Seborrheic dermatitis Apply topically to affected area every 3 days for 28 days. Shampoo twice a week 120 mL 1 11/06/2019 12/04/19 20 Active azithromycin (ZITHROMAX Z-SUYAPA) 250 MG TabletIndications:C at [...] mouth daily. 180 Tab 1 11/07/2019 Active nadolol (CORGARD) 20 MG Tablet Take 2 Tabs by mouth daily. 60 Tab 3 06/06/2019 11/07/19 20 Discontinu ed(Refill) documented as of [...] pain 01/24/2012 01/17/2017 Genetic Sleep Disorder Research Other*[id number] 05/13/2011 04/07/2016 Obstructive sleep apnea 01/18/2011 12/27/19 [...] Telephone Encounter - Lyssa Saxena CRNP - 11/07/2019 1:09 PM EST Signed Prescriptions: Disp Refills nadolol (CORGARD) 20 MG Tablet 180 Tab1 Sig: Take 2 Tabs by mouth daily. Authorizing Provider: LYSSA SAXENA * Telephone Encounter - Rajwinder Carter DO - 11/07/2019 12:47 PM EST Pending Prescriptions: Disp Refills nadolol (CORGARD) 20 MG Tablet 180 Tab1 Sig: Take 2 Tabs by mouth daily. * Telephone Encounter - Rajwinder Carter DO - 11/07/2019 12:46 PM EST Will forward to GI who made recent increase and prescribed. * Telephone Encounter - Ramez Urena [facility] - 11/07/2019 11:52 AM EST Pending Prescriptions: Disp Refills nadolol (CORGARD) 20 MG Tablet 180 Tab1 Sig: Take 2 Tabs by mouth daily. * Telephone Encounter - Ramez Urena [facility] - 11/07/2019 11:49 AM EST As per protocol, refill pharmacists only permitted to authorize prescriptions written by family andinternal medicine PCPs. Please approve if appropriate. Last prescribed by gastroenterology but has been prescribed by you in the past. Medication was increased to 2 tablets daily by gastroenterology. Thank You, Ramez Urena, Pharm-D Clinical Pharmacist Telepharmacy 11/07/2019, 11:49 AM * Telephone Encounter - Tamara Dasilva PHARM Tech - 11/07/2019 8:34 AM EST Pending Prescriptions: Disp Refills nadolol (CORGARD) 20 MG Tablet 60 Tab 3 Sig: Take 2 Tabs by mouth daily. Last Office Visit: 11/06/2019 Next Office Visit: 11/25/2019 Scheduled Provider(s): Rajwinder Carter, DO If no future appointments scheduled, and last appointment is greater than a year ago, please schedule patient for a follow-up appointment Last date the medication was ordered: 06/06/19 Pharmacy: [facility] [id number] Is this request for a controlled [...] PM ALT 27 06/06/2019 01:03 PM HGBA1C 6.5 (H) 04/05/2019 06:40 AM documented in this encounter Plan of Treatment Upcoming Encounters Date Type Specialty Care Team Description 11/25/2019 Office Visit Family Medicine Rajwinder Carter DO [address] [place] [facility] [address] 11/26/2019 Office Visit Gastroenterology Lyssa Saxena, ZAK [address] [facility] [place] [address] 01/09/2020 Office Visit Gynecology Obstetrics Aman Small, BOOM [address] [place] [address] [phone] 01/29/2020 Nutrition Services Gastroenterology Melissa Omalley, RDN [address] [place] [id number] 09/03/2020 Imaging Radiology Health Maintenance Due Date [...] Documents on File Type Date Recorded Patient Experience Designer Expl 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
--- OUTSIDE RECORDS SUMMARY | 2023-05-10 22:56 | External Medical Summary ---
Author Name Unknown Address [address] [place] [address] Phone Organization K01:[facility] [address] [facility] [address] Laboratory Report Ordering Provider Test Date Status JANE FLORES 11/11/2019 14:35:00 Final Observation Date Value Abnormality Reference (Units) Status WBC, Total 11/12/2019 02:22 2.66 Below low normal 4.00-10.80 (K/uL) Final RBC 11/12/2019 02:22 2.65 Below low normal 3.85-5.15 (M/uL) Final Hemoglobin 11/12/2019 02:22 7.7 Below low normal 12.0-15.3 (g/dL) Final HCT 11/12/2019 02:22 27.7 Below low normal 36.0-45.2 (%) Final MCV 11/12/2019 02:22 104.5 Above high normal 81.5-97.5 (fL) Final MCH 11/12/2019 02:22 29.1 27.0-34.0 (pg) Final MCHC 11/12/2019 02:22 27.8 Below low normal 32.0-36.0 (g/dL) Final RDW 11/12/2019 02:22 16.6 Above high normal 11.5-15.5 (%) Final Platelets 11/12/2019 02:22 87 Below low normal 140-400 (K/uL) Final MPV 11/12/2019 02:22 NO RESULT - ABNORMAL PLATELET DISTRIBUTION 6.6-11.1 (fL) Final nRBC/100 WBC Bld Auto-Rto 11/12/2019 02:22 0 0 (/100 WBCs) Final Segs 11/12/2019 02:23 56.0 40-75 (%) Final Lymphs % 11/12/2019 02:23 27.8 18-42 (%) Final Monos 11/12/2019 02:23 9.8 1-11 (%) Final Eosinophils 11/12/2019 02:23 5.3 0-6 (%) Final Basos 11/12/2019 02:23 1.1 0-2 (%) Final Immature Granulocyte, Percent 11/12/2019 02:23 0 0-2 (%) Final Neutrophils Bld 11/12/2019 02:23 1.49 Below low normal 1.8-7.7 (K/uL) Final Lymphs, absolute 11/12/2019 02:23 0.74 Below low normal 1.0-4.8 (K/uL) Final Monos, Abs 11/12/2019 02:23 0.26 0.0-1.1 (K/uL) Final Eos, Abs 11/12/2019 02:23 0.14 0.0-0.7 (K/uL) Final Basos, Abs 11/12/2019 02:23 0.03 0.0-0.2 (K/uL) Final Performing Location [facility] [address] [place] [address]
--- OUTSIDE RECORDS SUMMARY | 2023-05-10 22:56 | External Medical Summary | Summary of Care ---
Author Name Unknown Organization [facility] Address [place] [address] Care Team Providers Care Arboreal Scientist Name Role Phone Rajwinder Lara DO Primary Care Provider [phone] Reason for Visit * Reason Comments Medication Refill Encounter Details Date Type Department Care Team Description 11/07/[address] [facility] [address] [place] [address] Rajwinder Lara DO [address] [place] [address] [phone] Allergies Active Allergy Reactions Severity Noted Date [...] ONCE DAILY 30 Tab 4 06/06/2019 Active nadolol (CORGARD) 20 MG Tablet Take 2 Tabs by mouth daily. 60 Tab 3 06/06/2019 Active MetFORMIN (GLUCOPHAGE) 1000 MG TabletIndications:T [...] Dosing Unit 5 10/07/2019 Active nystatin (NYSTOP) 734251 UNIT/GM powder Apply topically to affected area [...] to low back 30 g 1 10/30/2019 11/13/19 20 Active Albuterol Sulfate (ALBUTEROL [...] mouth daily. 30 Cap 3 11/07/2019 Active gabapentin (NEURONTIN) 300 MG Capsule One pill in am, one midday, two in pm, 180 Cap 5 05/06/2019 11/07/19 20 Discontinu ed(Refill) tamsulosin (FLOMAX) 0.4 MG Capsule TAKE 1 CAPSULE BY MOUTH ONCE DAILY 30 Cap 3 06/06/2019 11/07/19 20 Discontinu ed(Refill) cyclobenzaprine (FLEXERIL) 10 MG [...] pain 01/24/2012 01/17/2017 Genetic Sleep Disorder Research Other*[id number] 05/13/2011 04/07/2016 Obstructive sleep apnea 01/18/2011 12/27/19 [...] Telephone Encounter - Rajwinder Lara DO - 11/07/2019 12:46 PM EST Signed Prescriptions: Disp Refills cyclobenzaprine (FLEXERIL) 10 MG Tablet 30 Tab 0 Sig: Take 1 Tab by mouth at bedtime. Authorizing Provider: RAJWINDER LARA gabapentin (NEURONTIN) 300 MG Capsule 180 Cap5 Sig: One pill in am, one midday, two in pm, Authorizing Provider: RAJWINDER LARA tamsulosin (FLOMAX) 0.4 MG Capsule 30 Cap 3 Sig: Take 1 Ca p by mouth daily. Authorizing Provider: RAJWINDER LARA * Telephone Encounter - Tamara Dasilva, power and recovery superintendent - 11/07/2019 8:33 AM EST Pending Prescriptions: Disp Refills cyclobenzaprine (FLEXERIL) 10 MG Tablet 30 Tab 0 Sig: Take 1 Tab by mouth at bedtime. gabapentin (NEURONTIN) 300 MG Capsule 180 Cap5 Sig: One pill in am, one midday, two in pm, tamsulosin (FLOMAX) 0.4 MG Capsule 30 Cap 3 Sig: Take 1 Cap by mouth daily. Last Office Visit: 11/06/2019 Next Office Visit: 11/25/2019 Scheduled Provider(s): Rajwinder Lara DO If no future appointments scheduled, and last appointment is greater than a year ago, please schedule patient for a follow-up appointment Last date the medication was ordered: 06/06/19, 10/09/19 Pharmacy: [facility] [id number] Is this request for a [...] Family Medicine Rajwinder Lara DO [address] [facility] [address] 11/26/2019 Office Visit Gastroenterology Lyssa Stout CRNP [address] [facility] [place] [address] [phone] 01/09/2020 Office Visit Gynecology Obstetrics Aman Small CNM [address] [place] [address] [phone] 01/29/2020 Nutrition Services Gastroenterology Melissa Omalley, [place] [address] [place] [address] [phone] 09/03/2020 Imaging Radiology Health Maintenance Due Date [...] on File Type Date Recorded Patient Consumer Loan Processor Expl 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
--- OUTSIDE RECORDS SUMMARY | 2023-05-10 22:56 | External Medical Summary | Summary of Care ---
Author Name Unknown Organization [facility] Address [place] [address] Care Team Providers Care Rivet Hole Puncher Name Role Phone Rajwinder Carter DO Primary Care Provider [phone] Reason for Visit * Reason Comments Medication Refill Encounter Details Date Type Department Care Team Description 11/07/2019 Telephone [facility] [address] [place], [place] [phone] Rajwinder Carter DO [address] [place], [place] [id number] Medication Refill Allergies Active Allergy Reactions Severity [...] Dosing Unit 5 10/07/2019 Active nystatin (NYSTOP) 778557 UNIT/GM powder Apply topically to affected area [...] pain 01/24/2012 01/17/2017 Genetic Sleep Disorder Research Other*[id number] 05/13/2011 04/07/2016 Obstructive sleep apnea 01/18/2011 12/27/19 [...] Miscellaneous Notes * Telephone Encounter - Dominique Oliveira RN - 11/07/2019 7:13 PM EST Pt called back, she is unsure of why the pharmacy requested an antibiotic refill. She states she was seen yesterday and has a cut behind her ear and was scratched by a cat. She denies any signs of infection, no redness, no drainage, no fever. Currently taking a Z-pack that was prescribed yesterday. * Telephone Encounter - Jovana Lambert RN - 11/07/2019 7:10 PM EST Home Called mail box fill Unable t leave a message Cell Voice mail not set up * Telephone Encounter - Rajwinder Carter DO - 11/07/2019 7:06 PM EST Please clarify this message. Why is patient requesting keflex? * Telephone Encounter - Tamara Dasilva PHARM Tech - 11/07/2019 8:37 AM EST Pharmacy calling to request refills for cephalexin (KEFLEX) 250 MG Capsule . Upon chart review, medication is listed as discontinued, with discontinuation reason as "Therapeutic interchange". Please advise if you wish to continue this therapy for the patient. Pt uses [facility] [id number] Thank you, Tamara Dasilva Tube Molder [employer] [facility] [employer] 11/07/2019, 8:38 AM documented in this encounter Plan of Treatment Upcoming Encounters Date Type Specialty Care Team Description 11/25/2019 Office Visit Family Medicine Rajwinder Carter DO [address] [facility], [place] [address] 11/26/2019 Office Visit Gastroenterology Lyssa Stout, ZAK [address] [facility] [place] [address] [phone] 01/09/2020 Office Visit Gynecology Obstetrics Aman Small, BOOM [address] [place] [id number] 01/29/2020 Nutrition Services Gastroenterology Melissa Omalley, [place] [address] [place] [id number] 09/03/2020 Imaging Radiology Health Maintenance Due Date [...] Documents on File Type Date Recorded Patient Greeting Card Maker Expl 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
--- OUTSIDE RECORDS SUMMARY | 2023-05-10 22:56 | External Medical Summary | Summary of Care ---
Author Name Unknown Organization [facility] Address [place] [address] Care Team Providers Care Pole Framer Machine Name Role Phone Rajwinder Carter DO Primary Care Provider [phone] Reason for Visit * Reason Comments Medication Refill Encounter Details Date Type Department Care Team Description 11/07/2019 Telephone [facility] [address] [place], [place] [phone] Rajwinder Carter DO [address] [place], [place] [phone] Medication Refill Allergies Active Allergy Reactions Severity [...] of less than 7.0% ([facility]) INJECT 24 UNITS UNDER THE SKIN AT [...] of less than 7.0% ([facility]) TAKE 1 TABLET BY MOUTH TWICE DAILY [...] Dosing Unit 5 10/07/2019 Active nystatin (NYSTOP) 181768 UNIT/GM powder Apply topically to affected area 3 times a day. 60 g 1 10/16/2019 Active BD PEN NEEDLE MINI U/F 31G X 5 MMIndications:Type 2 diabetes mellitus with hemoglobin A1c goal of less than 7.0% ([facility]) use with basaglar at bedtime 100 Each [...] pain 01/24/2012 01/17/2017 Genetic Sleep Disorder Research Other*[id number] 05/13/2011 04/07/2016 Obstructive sleep apnea 01/18/2011 12/27/19 [...] Encounter - Rajwinder Carter DO - 11/08/2019 9:22 AM EST Noted. * Telephone Encounter - Dominique Oliveira RN [...] keflex? * Telephone Encounter - Tamara Dasilva market research lead - 11/07/2019 8:37 AM EST Pharmacy calling to request refills for cephalexin (KEFLEX) 250 MG Capsule . Upon chart review, medication is listed as discontinued, with discontinuation reason as "Therapeutic interchange". Please advise if you wish to continue this therapy for the patient. [id number] [facility] Thank you, Tamara Dasilva Clinical Mental Health Counselor [place] 11/07/2019, 8:38 AM documented in this encounter Plan of Treatment Upcoming Encounters Date Type Specialty Care Team Description 11/25/2019 Office Visit Family Medicine Rajwinder Carter DO [address] [facility], [place] [address] [phone] 11/26/2019 Office Visit Gastroenterology Lyssa Stout CRNP [address] [facility] [place] [address] [phone] 01/09/2020 Office Visit Gynecology Obstetrics Aman Small, MANAV [address] [place] [id number] 01/29/2020 Nutrition Services Gastroenterology Melissa Omalley RDN [address] [place] [phone] 09/03/2020 Imaging Radiology Health Maintenance Due Date [...] Documents on File Type Date Recorded Patient Quality Control Lab Tech Expl 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
--- OUTSIDE RECORDS SUMMARY | 2023-05-10 22:56 | External Medical Summary ---
Author Name Unknown Address [facility] [address] Phone Organization K01:[place] [address] [place] [id number] Laboratory Report Ordering Provider Test Date Status JANE FLORES 11/11/2019 14:35:00 Final Observation Date Value Abnormality Reference (Units ) Status HbA1C 11/12/2019 00:41 7.3 Above high normal 4.0-5 .6 (%) Final Performing Location [place] [id number]
--- OUTSIDE RECORDS SUMMARY | 2023-05-10 22:57 | External Medical Summary | Summary of Care ---
Author Name Unknown Organization [facility] Address [place] [address] Care Team Providers Care Long Chain Dyeing Machine Operator Name Role Phone Rajwinder Carter DO Primary Care Provider [phone] Reason for Visit * Reason Comments Letter Requests Encounter Details Date Type Department Care Team Description 10/28/2019 Telephone [facility] [address] [place] [address] Rajwinder Carter DO [address] [place] [address] Letter Requests Allergies Active Allergy Reactions Severity Noted Date Comments Penicillins Rash 02/12/2008 documented as of this encounter (statuses as of 11/06/2019) Medications Medication Sig Dispensed Refills Start Date End Date Status CENTRUM SILVER PO TABS 1 tab daily 1 Tab 0 05/25/2012 Active vitamin c (ASCORBIC ACID) 500 MG Tablet Take 500 mg by mouth daily. 0 Active insulin glargine (LANTUS SOLOSTAR) 100 UNIT/ML SOPNIndications:Typ e 2 diabetes mellitus with hemoglobin A1c goal of less than 7.0% ([facility]) INJECT 24 UNITS UNDER THE SKIN AT BED TIME 15 mL 3 02/22/2019 Active ferrous sulfate (FEOSOL) 325 (65 FE) MG Tablet Take 325 mg by mouth daily with breakfast. 0 Active furosemide (LASIX) 20 MG Tablet Take 20 mg by mouth daily. Every other day 0 Active gabapentin (NEURONTIN) 300 MG Capsule One pill in am, one midday, two in pm, 180 Cap 5 05/06/2019 Active traZODone (DESYREL) 50 MG TabletIndications:S leep disturbances TAKE 1 TABLET BY MOUTH AT BEDTIME 30 Tab 4 06/06/2019 Active tamsulosin (FLOMAX) 0.4 MG Capsule TAKE 1 CAPSULE BY MOUTH ONCE DAILY 30 Cap 3 06/06/2019 Active escitalopram (LEXAPRO) 20 MG Tablet [...] Pen Syringe Dosing Unit 5 10/07/2019 Active cyclobenzaprine (FLEXERIL) 10 MG Tablet TAKE 1 TABLET BY MOUTH AT BEDTIME 30 Tab 0 10/09/2019 Active nystatin (NYSTOP) 446702 UNIT/GM powder Apply topically to affected area 3 times a day. 60 g 1 10/16/2019 Active Dulaglutide (TRULICITY) 1.5 MG/0.5ML SOPNIndications:Typ e 2 diabetes mellitus with hemoglobin A1c goal of less than 7.0% ([facility]) Inject 1 syringeful once weekly 4 Pre-filled Pen Syringe Dosing Unit 5 05/06/2019 10/30/19 20 Discontinu ed(Patient preference /discontin uation) albuterol HFA (PROAIR HFA) 108 (90 BASE) MCG/ACT inhaler Inhale 2 Puffs by mouth every 4 hours as needed for Cough or Wheezing. With spacer 1 Inhaler 1 07/06/2019 11/06/19 20 Discontinu ed(Refill) documented as of this encounter (statuses as of 11/06/2019) Active Problems Problem Noted Date Thrombocytopenia 05/02/2019 [...] as of this encounter (statuses as of 11/06/2019) Resolved Problems Problem Noted Date Resolved Date [...] pain 01/24/2012 01/17/2017 Genetic Sleep Disorder Research Other*[id number] 05/13/2011 04/07/2016 Obstructive sleep apnea 01/18/2011 12/27/19 [...] as of this encounter (statuses as of 11/06/2019) Immunizations Name Administration Dates Next Due HEP [...] Telephone Encounter - Rajwinder Carter DO - 11/06/2019 5:07 PM EST Discussed in detail and completed at visit. * Telephone Encounter - Melissa Omalley RDN - 10/29/2019 11:46 AM EST Patient being seen nutritionally for weight management. Patient is scheduled to see you in 2 weeks.She stated she has friction sore . Patient was asking if there is any type of Cream you can order in the meantime she can take before she comes in to see you. Patient also complaining of burping after every meal. Sometimes having problems with trying to burp and vomits instead. Please advise thank you. Melissa * Telephone Encounter - Preethi Muñoz LPN - 10/28/2019 10:53 AM EST Okay for letter? * Telephone Encounter - Lidia Betancourt OSA - 10/28/2019 10:47 AM EST Patient calling in. Patient stating she was fitted for dentures and they do not fit right. Patient stating her insurance will not cover another pair. Patient stating if she gets a letter from her pcpstating she is a choking risk then her insurance should cover her to get a new set. Please call pt and advise on letter/ call once letter is ready for cherry picker operator documented in this encounter Plan of Treatment Upcoming Encounters Date Type Specialty Care Team Description 11/25/2019 Office Visit Family Medicine Rajwinder Carter DO [address] [facility] [place] [id number] 11/26/2019 Office Visit Gastroenterology Lyssa Stout CRNP [address] [facility] [place] [address] [phone] 01/09/2020 Office Visit Gynecology Obstetrics Aman Small CNM [address] [place] [address] [place] [address] [phone] 01/29/2020 Nutrition Services Gastroenterology Melissa Omalley, RDN [address] [place] [address] [phone] 09/03/2020 Imaging Radiology Health Maintenance Due Date Last Done Comments Zoster Vaccines (2 of 3) 02/03/2016 12/09/2015 DIABETES-EYE EXAM 06/12/2019 06/12/2018, , 06/12/2018, Additional history exists DIABETES-HGBA1C EVERY 6 MONTHS 10/06/2019 04/05/2019, 09/21/2018, 02/13/2018, Additional history exists PAP SMEAR-EVERY 3 YRS,AGES 21-65 10/10/2019 10/10/2016, 07/02/2014, 04/16/2013, Additional history exists Yearly B-12 12/25/2019 12/24/2018, 02/13/2018 DIABETES-FOOT EXAM 01/10/2020 01/09/2019, 0 12/26/2017, 03/22/2017, Additional history exists DIABETES-URINE MICROALBUMIN EVERY 12 MONTHS 01/12/2020 01/11/2019, 08/24/2018, 07/19/2018, Additional history exists BREAST CANCER SCREENING DISCUSSION YEARLY AGES 40-75 09/02/2020 09/02/2019, 04/04/2018, 01/18/2017, Additional history exists DTaP,Tdap,and Td Vaccines (3 [...] on File Type Date Recorded Patient Horse Identifier Expl 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
--- OUTSIDE RECORDS SUMMARY | 2023-05-10 22:57 | External Medical Summary | Summary of Care ---
Author Name Unknown Organization [facility] Address [place] [address] Care Team Providers Care Truck Engine Technician Name Role Phone Rajwinder Carter DO Primary Care Provider [phone] Reason for Visit * Reason Comments Home Health Encounter Details Date Type Department Care Team Description 10/30/2019 Telephone [facility] [address] [place] [address] Rajwinder Carter DO [address] [place] [address] Home Health Allergies Active Allergy Reactions Severity Noted Date Comments Penicillins Rash 02/12/2008 documented as of this encounter (statuses as of 10/30/2019) Medications Medication Sig Dispensed Refills Start Date [...] 5 05/06/2019 Active traZODone (DESYREL) 50 MG TabletIndications:Sl eep [...] 3 06/06/2019 Active MetFORMIN (GLUCOPHAGE) 1000 MG TabletIndications:Ty pe 2 diabetes mellitus with hemoglobin A1c goal of less than 7.0% ([facility]) TAKE 1 TABLET BY MOUTH TWICE DAILY WITH FOOD 180 Tab 3 07/04/2019 Active albuterol HFA (PROAIR HFA) 108 (90 BASE) MCG/ACT inhaler Inhale 2 Puffs by mouth every 4 hours as needed for Cough or Wheezing. 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 * Telephone Encounter - Jovana Lambert RN - 10/30/2019 2:28 PM EST Spoke to Home [facility] They did Go see her 10/23/2019 But she called 10/26/2019 and told them she did not want them to come back Torrie saw patient today and wanted home health to follow a open area on her back Also To check meds There was confusion with meds Asking Home Health to check on this She was on Ozempic, Lantus and should not be on Trulicity Spoke to patient She said can not afford this her insurance will not pay for this Called [facility] Spoke to Sarah nurse She refused home care has a co pay but not willing to do this Torrie and Dr Carter Patient refusing Home care due to cost of copay She does have a private Aide that helps her documented in this encounter Plan of Treatment Upcoming Encounters Date Type Specialty Care Team Description 11/25/2019 Office Visit [facility] [address] [facility] [id number] 11/26/2019 [facility] [address] [facility] [address] [phone] 01/09/2020 Office Visit Gynecology Obstetrics Aman Small, MANAV [address] [place] [address] [phone] 01/29/2020 Nutrition Services Gastroenterology Melissa Omalley RDN [address] [place] [id number] 09/03/2020 Imaging Radiology Health Maintenance Due Date [...] Documents on File Type Date Recorded Patient Information Systems Consultant Expl 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
--- OUTSIDE RECORDS SUMMARY | 2023-05-10 22:57 | External Medical Summary | Summary of Care ---
Author Name Unknown Organization [facility] Address [place] [address] Care Team Providers Care Director Of Marketing Communications Name Role Phone Rajwinder Lara DO Primary Care Provider [phone] Reason for Visit * Reason Comments Order Request bed Encounter Details Date Type Department Care Team Description 10/29/2019 Telephone [facility] [address] [place] [address] Rajwinder Lara DO [address] [place], [place] [id number] Order Request (bed ) Allergies Active Allergy Reactions Severity Noted [...] 07/06/2019 Active fluticasone (FLONASE) 50 MCG/ACT nasal sprayIndications:Si [...] 30 Tab 0 10/09/2019 Active nystatin (NYSTOP) 479784 UNIT/GM powder Apply topically to affected area 3 times a day. 60 g 1 10/16/2019 Active BD PEN NEEDLE MINI U/F 31G X 5 MMIndications:Type 2 diabetes mellitus with hemoglobin A1c goal of less than 7.0% (HCC) use with basaglar at bedtime 100 Each 10 10/29/2019 Active Dulaglutide (TRULICITY) 1.5 MG/0.5ML SOPNIndications:Typ e 2 diabetes mellitus with hemoglobin A1c goal of less than 7.0% (HCC) Inject 1 syringeful once weekly 4 Pre-filled Pen Syringe Dosing Unit 5 05/06/2019 10/30/19 20 Discontinu ed(Patient preference /discontin uation) documented as [...] pain 01/24/2012 01/17/2017 Genetic Sleep Disorder Research Other*[id number] 05/13/2011 04/07/2016 Obstructive sleep apnea 01/18/2011 12/27/19 [...] encounter Miscellaneous Notes * Addendum Note - Rajwinder Lara DO - 10/30/2019 5:03 PM EST Addended by: RAJWINDER LARA on: 10/30/2019 05:03 PM Modules accepted: Orders * Telephone Encounter - Rajwinder Lara DO - 10/30/2019 5:03 PM EST Order on Jovana's desk. OV note addended from 10/02. * Addendum Note - Jovana Sotelo RN - 10/30/2019 4:18 PM EST Addended by: JOVANA SOTELO on: 10/30/2019 04:18 PM Modules accepted: Orders * Telephone Encounter - Jovana Sotelo RN - 10/30/2019 4:15 PM EST Please see requirements for hospital bed See OV note addendum info needed * Telephone Encounter - Naga Arias OSA - 10/30/2019 10:51 AM EST Juan Carlos calling from [facility] asking for a new script for the hospital bed. Script needs to say "semi-electric hospital bed with mattress and side rails" Also needs addendum to chart notes. " Pt requires frequent repositioning and positioning not feasible with an ordinary bed" Please fax new script and revised office notes to [phone] as soon as possible. * Telephone Encounter - Susan Rosales RN - 10/30/2019 9:48 AM EST Faxed order to [facility] with confirmation received * Telephone Encounter - Rajwinder Lara DO - 10/29/2019 5:04 PM EST Rx done. Please fax. On Patient Communicator's desk. * Telephone Encounter - Rosio Hunter RN - 10/29/2019 2:32 PM EST Hospital bed pended. * Telephone Encounter - Lynsey Ferrari OSA - 10/29/2019 12:58 PM EST Patient's bed broke. She needs a script for another bed that adjusts on head and foot be sent to [facility]. documented in this encounter Plan of Treatment Upcoming Encounters Date Type Specialty Care Team Description 11/25/2019 Office Visit Family Medicine [facility] [address] [facility] [address] [phone] 11/26/2019 Office [facility] [address] [facility] [address] [phone] 01/09/2020 Office Visit Gynecology Obstetrics Aman Small, MANAV [address] [place] [id number] 01/29/2020 Nutrition Services Gastroenterology Melissa Omalley RDN [address] [place] [id number] 09/03/2020 Imaging Radiology Health Maintenance Due Date [...] Diagnosis Cerebral palsy, unspecified type (HCC)- Primary Spinal stenosis of lumbar region without neurogenic claudication Spinal stenosis, lumbar region, without neurogenic claudication documented in this encounter Advance Directives Documents on File Type Date Recorded Patient Import Specialist Expl 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
--- OUTSIDE RECORDS SUMMARY | 2023-05-10 22:57 | External Medical Summary | Summary of Care ---
Author Name Unknown Organization [facility] Address [place] [address] Care Team Providers Care Photoengraving Proofer Apprentice Name Role Phone Rajwinder Lara DO Primary Care Provider [phone] Reason for Visit * Reason Comments Order Request bed Encounter Details Date Type Department Care Team Description 10/29/2019 Telephone [facility] [address] [place] [address] Rajwinder Lara DO [address] [place], [place] [id number] Order Request (bed ) Allergies Active Allergy Reactions Severity Noted Date Comments Penicillins Rash 02/12/2008 documented as of this encounter (statuses as of 10/31/2019) Medications Medication Sig Dispensed Refills Start Date [...] 30 Tab 0 10/09/2019 Active nystatin (NYSTOP) 476470 UNIT/GM powder Apply topically to affected area [...] as of this encounter (statuses as of 10/31/2019) Active Problems Problem Noted Date Thrombocytopenia 05/02/2019 [...] as of this encounter (statuses as of 10/31/2019) Resolved Problems Problem Noted Date Resolved Date [...] pain 01/24/2012 01/17/2017 Genetic Sleep Disorder Research Other*[id number] 05/13/2011 04/07/2016 Obstructive sleep apnea 01/18/2011 12/27/19 [...] as of this encounter (statuses as of 10/31/2019) Immunizations Name Administration Dates Next Due HEP [...] Telephone Encounter - Susan Rosales RN - 10/31/2019 7:54 AM EST Faxed clinic note and order to [facility] * Addendum Note - Rajwinder Lara DO [...] 10:51 AM EST Juan Carlos calling from [facility] asking for a new script for the hospital bed. Script needs to say "semi-electric hospital bed with mattress and side rails" Also needs addendum to chart notes. " Pt requires frequent repositioning and positioning not feasible with an ordinary bed" Please fax new script and revised office notes to [phone] as soon as possible. * Telephone Encounter - Susan Rosales RN - 10/30/2019 9:48 AM EST Faxed order to [facility] with confirmation received * Telephone Encounter - Rajwinder Lara DO - 10/29/2019 5:04 PM EST Rx done. Please fax. On Jovana's desk. * Telephone Encounter - Rosio Hunter RN - 10/29/2019 2:32 PM EST Hospital bed pended. * Telephone Encounter - Lynsey Ferrari OSA - 10/29/2019 12:58 PM EST Patient's bed broke. She needs a script for another bed that adjusts on head and foot be sent to [facility]. documented in this encounter Plan of Treatment Upcoming Encounters Date Type Specialty Care Team Description 11/25/2019 Office Visit Family Medicine [facility] [address] [facility] [address] [phone] 11/26/2019 Office Visit [facility] [address] [facility] [address] [phone] 01/09/2020 Office Visit Gynecology Obstetrics Aman Small, MANAV [address] [place] [id number] 01/29/2020 Nutrition Services Gastroenterology Melissa Omalley RDN [address] [place] [address] 09/03/2020 Imaging Radiology Health Maintenance Due Date [...] Documents on File Type Date Recorded Patient Reconciliation Accountant Expl 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
--- OUTSIDE RECORDS SUMMARY | 2023-05-10 22:57 | External Medical Summary ---
Author Name Unknown Address [address] [place] [address] Phone Organization K01:[facility] [address] [facility] [address] Laboratory Report Ordering Provider Test Date Status JANE FLORES 11/06/2019 13:46:00 Final Observation Date Value Abnormality Reference (Units ) Status WBC, Total 11/06/2019 23:25 3.52 Below low normal 4.00-10.80 (K/uL) Final RBC 11/06/2019 23:25 2.65 Below low normal 3.85-5.15 (M/uL) Final Hemoglobin 11/06/2019 23:25 8.0 Below low normal 12.0-15.3 (g/dL) Final HCT 11/06/2019 23:25 27.7 Below low normal 36.0-45.2 (%) Final MCV 11/06/2019 23:25 104.5 Above high normal 81.5-97.5 (fL) Final MCH 11/06/2019 23:25 30.2 27.0-34.0 (pg) Final MCHC 11/06/2019 23:25 28.9 Below low normal 32.0-36.0 (g/dL) Final RDW 11/06/2019 23:25 16.9 Above high normal 11.5-15.5 (%) Final Platelets 11/06/2019 23:25 91 Below low normal 140-400 (K/uL) Final MPV 11/06/2019 23:25 14.3 Above high normal 6.6-11.1 (fL) Final nRBC/100 WBC Bld Auto-Rto 11/06/2019 23:25 1 Above high normal 0 (/100 WBCs) Final Segs 11/06/2019 23:25 49.0 40-75 (%) Final Lymphs % 11/06/2019 23:25 31.3 18-42 (%) Final Monos 11/06/2019 23:25 12.2 Above high normal 1-11 (%) Final Eosinophils 11/06/2019 23:25 6.0 0-6 (%) Final Basos 11/06/2019 23:25 0.9 0-2 (%) Final Immature Granulocyte, Percent 11/06/2019 23:25 0.6 0-2 (%) Final Neutrophils Bld 11/06/2019 23:25 1.73 Below low normal 1.8-7.7 (K/uL) Final Lymphs, absolute 11/06/2019 23:25 1.10 1.0-4.8 (K/uL) Final Monos, Abs 11/06/2019 23:25 0.43 0.0-1.1 (K/uL) Final Eos, Abs 11/06/2019 23:25 0.21 0.0-0.7 (K/uL) Final Basos, Abs 11/06/2019 23:25 0.03 0.0-0.2 (K/uL) Final Immature Granulocytes, Number 11/06/2019 23:25 0.02 0.0-0.2 (K/uL) Final Hypochromia Bld Ql Smear 11/06/2019 23:25 SLIGHT Final Macrocytes Bld Ql Smear 11/06/2019 23:25 PRESENT Final Ovalocytes Bld Ql Smear 11/06/2019 23:25 FEW Final Performing Location [facility] [address] [facility] [address]
--- OUTSIDE RECORDS SUMMARY | 2023-05-10 22:57 | External Medical Summary | Summary of Care ---
Author Name Unknown Organization [facility] Address [place] [address] Care Team Providers Care Branch Rental Manager Name Role Phone Rajwinder Carter Primary Care Provider [phone] Encounter Details Date Type Department Care Team Description 11/04/2019 Scan Encounter Unspecified Department <No scans attached> [...] of less than 7.0% ([facility]) INJECT 24 UNITS UNDER THE SKIN AT [...] of less than 7.0% ([facility]) TAKE 1 TABLET BY MOUTH TWICE [...] 30 Tab 0 10/09/2019 Active nystatin (NYSTOP) 256654 UNIT/GM powder Apply topically to affected area [...] pain 01/24/2012 01/17/2017 Genetic Sleep Disorder Research Other*[id number] 05/13/2011 04/07/2016 Obstructive sleep apnea 01/18/2011 12/27/19 [...] Family Medicine [facility]winder Carter DO [address] [facility] [address] 11/26/2019 Office Visit Gastroenterology Lyssa Stout CRNP [address] [facility] [place] [address] [phone] 01/09/2020 Office Visit Gynecology Obstetrics Aman Small CNM [address] [place] [address] [phone] 01/29/2020 Nutrition Services Gastroenterology Melissa Omalley, RDN [address] [place] [address] [phone] 09/03/2020 Imaging Radiology Health Maintenance Due Date [...] on File Type Date Recorded 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
--- OUTSIDE RECORDS SUMMARY | 2023-05-10 22:57 | External Medical Summary | Summary of Care ---
Author Name Unknown Organization [facility] Address [place] [address] Care Team Providers Care Risk Prevention Engineer Name Role Phone Rajwinder Carter DO Primary Care Provider [phone] Reason for Referral * Precert (Routine) Status Reason Specialty Diagnoses / Procedures Referred By Contact Referred To Contact Closed Precert Cardiac Studies Diagnoses Pulmonary vascular congestion Procedures ECHO, COMPLETE (2D), TRANS-THORACIC Rajwinder Carter DO [address] [place] [address] Reason for Visit * Reason Comments Acute Encounter Details Date Type Department Care Team Description 10/02/2019 Office Visit [facility] [address] [place] [address] Rajwinder Carter DO [address], [place] [id number] Pulmonary vascular congestion* Allergies Active Allergy Reactions Severity Noted Date [...] BED TIME 15 mL 3 9 Active ferrous sulfate (FEOSOL) 325 (65 FE) MG Tablet Take 325 mg by mouth daily with breakfast. 0 Active furosemide (LASIX) 20 MG Tablet Take 20 mg by mouth daily. Every other day 0 Active gabapentin (NEURONTIN) 300 MG Capsule One pill in am, one midday, two in pm, 180 Cap 5 9 Active traZODone (DESYREL) 50 MG TabletIndications: Sleep disturbances TAKE 1 TABLET BY MOUTH AT BEDTIME 30 Tab 4 9 Active tamsulosin (FLOMAX) 0.4 MG Capsule TAKE 1 CAPSULE BY MOUTH ONCE DAILY 30 Cap 3 9 Active escitalopram (LEXAPRO) 20 MG Tablet TAKE 1 TABLET BY MOUTH ONCE DAILY 30 Tab 5 9 Active Additional Information Patient taking differently: TAKE 1 TABLET BY MOUTH ONCE DAILY, pt dose is 40mg daily, Reported on 06/06/2019 12:38 PM levothyroxine (LEVOXYL) 150 MCG TabletIndications: Acquired hypothyroidism TAKE 1 TABLET BY MOUTH ONCE DAILY at least 30 minutes prior to breakfast or other meds 30 Tab 10 9 Active potassium chloride ER 10 MEQ TBCRIndications:Hy pokalemia TAKE 1 TABLET ONCE DAILY WITH FOOD 30 Tab 4 9 Active SM ASPIRIN ADULT LOW STRENGTH 81 MG TBEC TAKE 1 TABLET BY MOUTH ONCE DAILY 30 Tab 4 9 Active nadolol (CORGARD) 20 MG Tablet Take 2 Tabs by mouth daily. 60 Tab 3 9 Active MetFORMIN (GLUCOPHAGE) 1000 MG TabletIndications: Type 2 diabetes mellitus with hemoglobin A1c goal of less than 7.0% ([facility]) TAKE 1 TABLET BY MOUTH TWICE DAILY WITH FOOD 180 Tab 3 9 Active albuterol HFA (PROAIR HFA) 108 (90 BASE) MCG/ACT inhaler Inhale 2 Puffs by mouth every 4 hours as needed for Cough or Wheezing. With spacer 1 Inhaler 1 9 Active fluticasone (FLONASE) 50 MCG/ACT nasal sprayIndications:S inus congestion INSTILL 2 SPRAYS INTO EACH NOSTRIL DAILY DIRECTED 16 g 5 9 Active atorvaSTATin (LIPITOR) 40 MG TabletIndications: Dyslipidemia, goal LDL below 70 TAKE 1 TABLET BY MOUTH EVERY NIGHT AT BEDTIME 90 Tab 0 9 Active furosemide (LASIX) 20 MG TabletIndications: Localized [...] for Wheezing. 120 Vial 11 0 Active Dulaglutide (TRULICITY) 1.5 MG/0.5ML SOPNIndications:Ty pe 2 diabetes mellitus with hemoglobin A1c goal of less than 7.0% ([facility]) Inject 1 syringeful once weekly 4 Pre-filled Pen Syringe Dosing Unit 5 9 020 Discontinued(Phan winters preference/disc ontinuation) cyclobenzaprine (FLEXERIL) 10 MG Tablet Take 1 Tab by mouth at bedtime. 30 Tab 0 0 020 Discontinued documented as of this encounter (statuses [...] pain 01/24/2012 01/17/2017 Genetic Sleep Disorder Research Other*[id number] 05/13/2011 04/07/2016 Obstructive sleep apnea 01/18/2011 12/27/19 [...] Reading Time Taken Comments Blood Pressure 124/66 10/02/2019 11:13 AM EST Pulse 76 10/02/2019 11:13 AM EST Temperature 36.6 C (97.8 F) 10/02/2019 11:[address] Respiratory Rate 20 10/02/2019 11:13 AM EST Oxygen Saturation - - Inhaled Oxygen Concentration - - Weight - - Height - - Body Mass Index - - documented in this encounter Progress Notes * Rajwinder Carter, DO - 10/02/2019 11:27 AM EST SUBJECTIVE: Chief Complaint Patient presents with Acute HPI: Shaina Bustos is a 64 year old female who presents today for recheck. Pt was seen at [facility] and had a CXR done that showed mild vascular congestion. She was to take her lasix daily. She hasnot been doing so and has only taken it twice. She states that she continues to have issues with shortness of breath. She is coughing. thinks that she has some wheezing. She has difficulty getting her mucous up. It is clear mucous. No fevers. PHM: Patient Active Problem List Diagnosis Code [...] than 7.0% ([facility]) E11.9 Vitamin D deficiency E55.9 Restrictive lung disease J98.4 Obesity, morbid (more than 100 lbs over ideal weight or BMI > 40) ([facility]) E66.01 Dyslipidemia, goal LDL below 70 E78.5 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 R39.81 Acquired hypothyroidism E03.9 Chronic pain syndrome G89.4 MEDICATION USE AGREEMENT [id number] History of Clostridium difficile colitis Z86.19 Cirrhosis of liver (HCC) K74.60 THAD on CPAP G47.33, Z99.89 Wheelchair dependent Z99.3 History of recent fall Z91.81 Pancytopenia (HCC) D61.818 Ambulatory dysfunction R26.2 Fall W19.XXXA Sprain of right ankle S93.401A DM type 2 with diabetic peripheral neuropathy (HCC) E11.42 Insomnia G47.00 Recurrent major depressive disorder, in partial remission ([facility]) F33.41 Impaired mobility and ADLs Z74.09 Generalized weakness R53.1 Gastroesophageal reflux disease K21.9 History of kidney stones Z87.442 History of Achilles tendon repair Z98.890 History of delivery Z98.891 History of MRSA infection Z86.14 History of migraine Z86.69 Anemia D64.9 Fibromyalgia M79.7 Achilles tendinitis, right leg M76.61 DNR (do not resuscitate) Z66 Thrombocytopenia ([facility]) D69.6 Current Outpatient Medications Medication Sig Dispense Refill albuterol sulfate (PROVENTIL) (2.5 MG/3ML) 0.083% nebulizer solution Inhale 1 Vial via nebulizer every 6 hours as needed for Wheezing. 120 Vial 11 pantoprazole (PROTONIX) 20 MG TBEC Take 2 Tabs by mouth daily. 60 Tab 5 atorvaSTATin (LIPITOR) 40 MG Tablet TAKE 1 TABLET BY MOUTH EVERY NIGHT AT BEDTIME 90 Tab 0 fluticasone (FLONASE) 50 MCG/ACT nasal spray INSTILL 2 SPRAYS INTO EACH NOSTRIL DAILY DIRECTED 16 g 5 albuterol HFA (PROAIR HFA) 108 (90 BASE) MCG/ACT inhaler Inhale 2 Puffs by mouth every 4 hours as needed for Cough or Wheezing. With spacer 1 Inhaler 1 MetFORMIN (GLUCOPHAGE) 1000 MG Tablet TAKE 1 [...] breakfast or other meds 30 Tab 10 nadolol (CORGARD) 20 MG Tablet Take 2 Tabs by mouth daily. 60 Tab 3 potassium chloride ER 10 MEQ TBCR TAKE 1 TABLET ONCE DAILY WITH FOOD 30 Tab 4 SM ASPIRIN ADULT LOW STRENGTH 81 MG TBEC TAKE 1 TABLET BY MOUTH ONCE DAILY 30 Tab 4 tamsulosin (FLOMAX) 0.4 MG Capsule TAKE 1 CAPSULE BY MOUTH ONCE DAILY 30 Cap 3 Dulaglutide (TRULICITY) 1.5 MG/0.5ML SOPN Inject 1 syringeful once weekly 4 Pre-filled Pen Syringe Dosing Unit 5 gabapentin (NEURONTIN) 300 MG Capsule One pill in am, one midday, two in pm, 180 Cap 5 furosemide (LASIX) 20 MG Tablet Take 20 mg by mouth daily. Every other day ferrous sulfate (FEOSOL) 325 (65 FE) MG Tablet Take 325 mg by mouth daily with breakfast. insulin glargine (LANTUS SOLOSTAR) 100 UNIT/ML SOPN INJECT 24 UNITS UNDER THE SKIN AT BED TIME 15 mL 3 vitamin c (ASCORBIC ACID) 500 MG Tablet Take 500 mg by mouth daily. cyclobenzaprine (FLEXERIL) 10 MG Tablet Take 1 Tab by mouth at bedtime. 30 Tab 0 furosemide (LASIX) 20 MG Tablet TAKE 1 TABLET BY MOUTH once daily NEEDED FoR EDEMA 30 Tab 4 oxybutynin (DITROPAN) 5 MG Tablet Take 1 Tab by mouth 2 times a day. 60 Tab 4 traZODone (DESYREL) 50 MG Tablet TAKE 1 TABLET BY MOUTH AT BEDTIME 30 Tab 4 CENTRUM SILVER PO TABS 1 tab daily [...] repeat 10 yrs/[facility] DENTAL SURGERY PROCEDURE NEC wisdom teeth x 4 DILATION AND CURETTAGE (D&C) EGD, FLEXIBLE, DIAGNOSTIC 10/04/2016 gastritis/[facility] EGD, FLEXIBLE, DIAGNOSTIC 01/11/2018 eso varices, retained food, repeat 1 yr/[facility] PELVIS/HIP JOINT SURGERY NEC teenager aid in walking REPAIR/GRAFT ACHILLES TENDON age 40 aid in walking Review of patient's allergies indicates: Allergen Reactions Pcn [Penicillins] Rash Family History Problem Relation Age of Onset Heart Disorder Father of [place] at age 61 Diabetes Father Heart Disorder Mother of [place] age 72 Cancer None Arthritis None Stroke [...] Used Substance Use Topics Alcohol use: No REVIEW OF SYSTEMS: Review of Systems Constitutional: Negative for chills, fatigue, fever and unexpected weight change. Respiratory: Positive for cough, shortness of breath and wheezing. Negative for chest tightness. Cardiovascular: Negative for chest pain, palpitations and leg swelling. Gastrointestinal: Negative for abdominal pain, constipation, diarrhea, nausea and vomiting. Musculoskeletal: Negative for arthralgias, gait problem and joint swelling. Skin: Negative for color change, pallor and rash. OBJECTIVE: BP 124/66 | Pulse 76 | Temp (Src) 97.8 (Tympanic) | Resp 20 | Wt (0.000kg) [...] Abdomen is soft. Tenderness: There is no tenderness. There is no guarding. Musculoskeletal: Normal range of motion. General: No tenderness or deformity. Skin: General: Skin is warm and dry. Coloration: Skin is not pale. Findings: No erythema or rash. Neurological: Mental Status: She is alert and oriented to person, place, and time. ASSESSMENT/PLAN: (R09.89) Pulmonary vascular congestion (primary encounter diagnosis) Plan: ECHO, COMPLETE (2D), TRANS-THORACIC, XR CHEST 2 VIEWS, albuterol sulfate (PROVENTIL) (2.5 MG/3ML) 0.083% nebulizer solution Pt will complete echo. Advised that it is imperative that she take Lasix daily for the next week. Repeat CXR after this. ED with emergencies. Pt requires frequent repositioning that is not feasible with an ordinary bed. She will need hospital bed. Follow-up: As needed and for routine care. Rajwinder Carter DO documented in this encounter Nursing Notes * Jovana Lambert, UMA - 10/02/2019 11:10 AM EST Needs Albuterol Nebulizer meds ordered and asking about the fluid around her heart documented in this encounter Plan of Treatment Upcoming Encounters Date Type Specialty Care Team Description 11/25/2019 Office Visit Family Medicine Rajwinder Carter DO [address] [place] [address] [phone] 11/26/2019 [facility] [address] [facility] [address] [phone] 01/09/2020 Office Visit Gynecology Obstetrics Aman Small CNM [address] [place] [id number] 01/29/2020 Nutrition Services Gastroenterology Melissa Omalley, SAMANTHA [address] [place] [id number] 09/03/2020 Imaging Radiology Scheduled Orders Name Type Priority Associated Diagnoses Orde r Schedule XR CHEST 2 VIEWS Medical Imaging Routine Pulmonary vascular congestion Ordered: 10/02/2019 Health Maintenance Due Date Last Done Comments [...] filedocumented as of this encounter Results * ECHO, COMPLETE (2D), TRANS-THORACIC (10/16/2019 2:25 PM EST) LEFT VENTRICULAR EJECTION FRACTION 60 % [facility] Specimen Performing Organization Address City/State/Zipcod e Phone Number [facility] documented in this encounter Visit Diagnoses Diagnosis Pulmonary vascular congestion- Primary Pulmonary congestion and hypostasis documented in this encounter Advance Directives Documents on File Type Date Recorded Patient Data Communications Technician Expl anation Advanced Directive service a kerri default Advanced Directive Advanced Directive Advanced Directive Advanced Directive Advanced Directive Advanced Directive Advanced Directive Advanced Directive"
--- OUTSIDE RECORDS SUMMARY | 2023-05-10 22:57 | External Medical Summary | Summary of Care ---
Author Name Unknown Organization [place] [address] Care Team Providers Care Accounting Coordinator Name Role Phone Rajwinder Carter DO Primary Care Provider [phone] Reason for Visit * Reason Comments Emergency Department Follow-Up Encounter Details Date Type Department Care Team Description 11/06/2019 Office Visit [facility] [address], [place] [id number] Rajwinder Carter DO [address], [place] [id number] Type 2 diabetes mellitus with hemoglobin A1c goal of less than 7.0% ([facility])*; DM type 2 nursing care encounter (HCC); Seborrheic dermatitis; Intermittent asthma with reliever use up to twice per week without complication; Cerebral palsy, unspecified type (HCC); Cirrhosis of liver without ascites, unspecified hepatic cirrhosis type (HCC); Cat scratch; Anemia, unspecified type Allergies Active Allergy Reactions [...] less than 7.0% ([facility]) TAKE 1 TABLET [...] 30 Tab 0 10/09/2019 Active nystatin (NYSTOP) 831371 UNIT/GM powder Apply topically to affected area [...] until gone 6 Tab 0 11/06/2019 Active albuterol HFA (PROAIR HFA) 108 (90 [...] pain 01/24/2012 01/17/2017 Genetic Sleep Disorder Research Other*[id number] 05/13/2011 04/07/2016 Obstructive sleep apnea 01/18/2011 12/27/19 [...] Reading Time Taken Comments Blood Pressure 124/70 11/06/2019 1:01 PM EST Pulse 78 11/06/2019 1:01 PM EST Temperature 36.9 C (98.5 F) 11/06/2019 1:01 PM ES T Respiratory Rate 20 11/06/2019 1:01 PM EST Oxygen Saturation - - Inhaled Oxygen Concentration - - Weight - - Height - - Body Mass Index - - documented in this encounter Patient Instructions * Patient Instructions* Michaelle Lindquist LPN - 11/06/2019 1:01 PM EST Microalbumin (Urine) Does this test have other names? Urine microalbumin, moderately increased albuminuria What is this test? This test looks for minuscule amounts of albumin in your urine. The test can find out whether diabetes has damaged your kidneys. Albumin is a protein needed for tissue growth and healing. It can leak into your urine when your kidneys aren't working as they should. Because such small amounts of albumin may not show up during routine urine testing, healthcare providers use this test to look for changes in albumin levels that mean complications from diabetes or other conditions. If kidney disease is found early, it may be treated successfully. Diabetes is the leading cause of kidney failure in the [place] Early detection of kidney damage is important to prevent long-term complications. People with diabetes who are between 12 and 70 years old should have a urine test for microalbumin at least once a year.Anyone with type 1 diabetes should begin testing after 5 years of having the disease. Those with type 2 diabetes should be tested when they are diagnosed and then each year after that. If you have high blood pressure, talk with your healthcare provider about how often you should be tested. Why do I need this test? You may need this test if you have diabetes and your healthcare provider wants to see whether you are controlling your blood sugar well enough to prevent damage to your kidneys. You may need to have this test once a year. What other tests might I have along with this test? Your healthcare provider may also order a urine test for creatinine. Creatinine is a chemical wasteproduct created from the body's natural process of converting food into energy. The amount of albumin is measured against the amount of creatinine to find out the cnofhed-at-whzmhtjwrn ratio, or ACR.If your kidneys are affected, your creatinine levels will rise. What do my test results mean? Test results may vary depending on your age, gender, health history, the method used for the test, and other things. Your test results may not mean you have a problem. Ask your healthcare provider what your test results mean for you. Results for microalbumin are given in milligrams per deciliter (mg/dL). Results for ACR are given in milligrams per gram (mg/g). Normal results are: MA: 0.2 to 1.9 mg/dL MA/creatinine ratio: 0 to 30 mg/g If your results show a small amount of albumin, you may have to repeat the test using a 24-hour urine sample to confirm the results. A moderate amount of albumin could mean early stages of kidney disease, and it's likely your healthcare provider will need to adjust your treatment. Finding microalbumin in your urine also may mean you are at a higher risk for heart disease. Higher levels of microalbumin may also be caused by blood in your urine, a urinary tract infection,and an acid-base imbalance in your blood. How is this test done? This test is done with a urine sample. Your healthcare provider will give you a sterile container to collect a urine sample. You may have to give a urine sample at a specific time. This test may also use a 24-hour urine sample. For this sample, you must collect all of your urine for 24 hours. Empty your bladder completely first in the morning without collecting it. Note the time. Then collect your urine every time you go to the bathroom over the next 24 hours. Does this test pose any risks? This test poses no known risks. What might affect my test results? Vigorous exercise can cause your results to seem higher than they really are. Certain medicines, such as oxytetracycline, can also affect your results. How do I get ready for this test? You don't need to prepare for this test. But be sure your healthcare provider knows about all medicines, herbs, vitamins, and supplements you are taking. This includes medicines that don't need a prescription and any illicit drugs you may use. 7268-6687 [employer]. [address] [place] [address]. All rights reserved. This information is not intended as a substitute for professional medical care. Always follow your healthcare professional's instructions. Diabetes: Keeping Feet Healthy Inspect your feet [...] calluses yourself. Talk to your doctor or blueprint reader (a doctor who specializes in foot care) [...] the area doesnt appear to be healing. 4247-9360 [employer], [address] [place] [address], [place] [address]. All rights reserved. This information is not intended as a substitute for professional medical care. Always follow your healthcare professional's instructions. documented in this encounter Progress Notes * Michaelle Lindquist LPN - 11/06/2019 1:01 PM EST Hemoglobin a1c ordered today. Provider aware. Michaelle Lindquist LPN Urine microalbumin ordered today. Provider aware. DM Foot Exam completed today. Provider aware. Michaelle Lindquist LPN Socks and Shoes Removed for Annual [...] monofilament pressure on plantar surface of foot * Rajwinder Carter DO - 11/06/2019 12:54 PM EST SUBJECTIVE: Chief Complaint Patient presents with Emergency Department Follow-Up HPI: Shaina Bustos is a 64 year old female who presents today for ED follow-up. Pt reported that shewas coughing up blood after getting something stuck in her throat. Lab studies and imaging were unremarkable. She was advised that this may be related to asthma and she was advised to use her albuterol regularly. Pt notes that she has not had any issues with coughing up blood since the ED visit. In review, pt was actually anemic with hgb of 8.7. this is worse than previously. Pt's dentures do not fit so her dietary needs are poor. She is seeing nutrition. Pt has a cat scratch on her leg and behind her ear. Caregiver notes that these seem to be infected.She has pressure areas on her back and in the crease of her skin. She has been using lotrimin to these areas with relief. They are concerned about the scratch. She is sitting up more. They do try to have her change position when able. She cannot afford home health. PHM: Patient Active Problem List Diagnosis Code Edema R60.9 Venous insufficiency I87.2 Spinal stenosis of lumbar region without neurogenic claudication M48.061 Cerebral palsy ([facility]) G80.9 HTN, goal below 140/90 I10 Chronic rhinitis J31.0 NG (nonalcoholic steatohepatitis) K75.81 Venous stasis dermatitis of both lower extremities I87.2 DDD (degenerative disc disease), lumbar M51.36 Intermittent asthma with reliever use up to twice per week J45.20 Primary osteoarthritis of right knee M17.11 Lymphedema I89.0 Type 2 diabetes mellitus with hemoglobin A1c goal of less than 7.0% ([facility]) E11.9 Vitamin D deficiency E55.9 Restrictive lung disease J98.4 Obesity, morbid (more than 100 lbs over ideal weight or BMI > 40) ([facility]) E66.01 Dyslipidemia, goal LDL below 70 E78.5 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 R39.81 Acquired hypothyroidism E03.9 Chronic pain syndrome G89.4 MEDICATION USE AGREEMENT MI4879 History of Clostridium difficile colitis Z86.19 Cirrhosis of liver ([facility]) K74.60 THAD on CPAP G47.33, Z99.89 Wheelchair dependent Z99.3 History of recent fall Z91.81 Pancytopenia ([facility]) D61.818 Ambulatory dysfunction R26.2 Fall W19.XXXA Sprain of right ankle S93.401A DM type 2 with diabetic peripheral neuropathy ([facility]) E11.42 Insomnia G47.00 Recurrent major depressive disorder, in partial remission ([facility]) F33.41 Impaired mobility and ADLs Z74.09 Generalized weakness R53.1 Gastroesophageal reflux disease K21.9 History of kidney stones Z87.442 History of Achilles tendon repair Z98.890 History of delivery Z98.891 History of MRSA infection Z86.14 History of migraine Z86.69 Anemia D64.9 Fibromyalgia M79.7 Achilles tendinitis, right leg M76.61 DNR (do not resuscitate) Z66 Thrombocytopenia ([facility]) D69.6 Current Outpatient Medications Medication Sig Dispense Refill Albuterol Sulfate (ALBUTEROL HFA) 108 (90 BASE) MCG/ACT inhaler Inhale 2 Puffs by mouth every 4hours as needed for Cough or Wheezing. With spacer 16 g 1 azithromycin (ZITHROMAX Z-SUYAPA) 250 MG Tablet Take two tablets by mouth on first day, then 1 tablet daily until gone 6 Tab 0 ketoconazole 2 % shampoo Apply topically to affected area every 3 days for 28 days. Shampoo twice a week 120 mL 1 clotrimazole (LOTRIMIN) 1 % cream Apply topically to affected area 2 times a day for 14 days. Apply to low back 30 g 1 cyclobenzaprine (FLEXERIL) 10 MG Tablet TAKE 1 TABLET BY MOUTH AT BEDTIME 30 Tab 0 Semaglutide, 1 MG/DOSE, (OZEMPIC, 1 MG/DOSE,) 2 [...] EVERY NIGHT AT BEDTIME 90 Tab 0 MetFORMIN (GLUCOPHAGE) 1000 MG Tablet TAKE 1 [...] ONCE DAILY WITH FOOD 30 Tab 4 tamsulosin (FLOMAX) 0.4 MG Capsule TAKE 1 CAPSULE BY MOUTH ONCE DAILY 30 Cap 3 traZODone (DESYREL) 50 MG Tablet TAKE 1 TABLET BY MOUTH AT BEDTIME 30 Tab 4 ferrous sulfate (FEOSOL) 325 (65 FE) MG Tablet Take 325 mg by mouth daily with breakfast. vitamin c (ASCORBIC ACID) 500 MG Tablet Take 500 mg by mouth daily. CENTRUM SILVER PO TABS 1 tab daily 1 Tab 0 BD PEN NEEDLE MINI U/F 31G X 5 MM use with basaglar at bedtime 100 Each 10 nystatin (NYSTOP) 011578 UNIT/GM powder Apply topically to affected area 3 times a day. 60 g 1 fluticasone (FLONASE) 50 MCG/ACT nasal spray INSTILL 2 SPRAYS INTO EACH NOSTRIL DAILY DIRECTED 16 g 5 SM ASPIRIN ADULT LOW STRENGTH 81 MG TBEC TAKE 1 TABLET BY MOUTH ONCE DAILY 30 Tab 4 gabapentin (NEURONTIN) 300 MG Capsule One pill in am, one midday, two in pm, 180 Cap 5 furosemide (LASIX) 20 MG Tablet Take 20 mg by mouth daily. Every other day insulin glargine (LANTUS SOLOSTAR) 100 UNIT/ML SOPN INJECT 24 UNITS UNDER THE SKIN AT BED TIME 15 mL 3 Past Medical History: Diagnosis Date Chronic hypoxemic [...] (RECTUM) 10/04/2016 normal bx, repeat 10 yrs/[facility] DENTAL SURGERY PROCEDURE NEC wisdom teeth [...] Age of Onset Heart Disorder Father of [place] at age 61 Diabetes Father Heart Disorder Mother of [place] age 72 Cancer None Arthritis None Stroke [...] problem and joint swelling. Skin: Positive for rash and wound. Negative for color change and pallor. OBJECTIVE: BP 124/70 | Pulse 78 | Temp (Src) 98.5 (Tympanic) | Resp 20 | Wt (0.000kg) [...] dry. Coloration: Skin is not pale. Findings: Erythema (erythema at site of cat scratch on right lower christine) and rash (seborrheic dermatitis of scalp) present. Neurological: Mental Status: She is alert and oriented to person, place, and time. ASSESSMENT/PLAN: (E11.9) Type 2 diabetes mellitus with hemoglobin A1c goal of less than 7.0% ([facility]) (primary encounter diagnosis) (E11.9) DM type 2 nursing care encounter ([facility]) Plan: HEMOGLOBIN A1C, DIABETES FOOT EXAM, CANCELED: ALBUMIN / CREATININE RATIO, URINE Pt will continue on current regimen. No current issues. DM previously well controlled. (L21.9) Seborrheic dermatitis Plan: ketoconazole 2 % shampoo Pt will use ketoconazole to scalp. (J45.20) Intermittent asthma with reliever use up to twice per week without complication Plan: Albuterol Sulfate (ALBUTEROL HFA) 108 (90 BASE) MCG/ACT inhaler Refill sent. To use as needed. Lungs clear today though exam limited by body habitus. (G80.9) Cerebral palsy, unspecified type ([facility]) Plan: RETURN TO WORK OR SCHOOL Letter written for medical necessity of new dentures. (K74.60) Cirrhosis of liver without ascites, unspecified hepatic cirrhosis type ([facility]) Plan: RETURN TO WORK OR SCHOOL Pt will keep GI follow-up. Repeat CBC today as was worse at ED than previously and not addressed there. (W55.03XA) Cat scratch Plan: azithromycin (ZITHROMAX Z-SUYAPA) 250 MG Tablet Pt will start Zithromax. Monitor area. (D64.9) Anemia, unspecified type Plan: CBC/DIFF Pt will repeat CBC. Follow-up: as scheduled Rajwinder Carter DO documented in this encounter Nursing Notes * Michaelle Lindquist LPN - 11/06/2019 12:55 PM EST Chief Complaint Patient presents with Emergency Department Follow-Up documented in this encounter Plan of Treatment Upcoming Encounters Date Type Specialty Care Team Description 11/25/2019 Office Visit [facility] [address] [facility] [address] [phone] 11/26/2019 Office Visit Gastroenterology Lyssa Stout CRNP [address] [facility] [place] [address] [phone] 01/09/2020 Office Visit Gynecology Obstetrics Aman Small CNM [address] [place] [id number] 01/29/2020 Nutrition Services Gastroenterology Melissa Omalley RDN [address] [place] [id number] 09/03/2020 Imaging Radiology Scheduled Orders Name Type Priority Associated Diagnoses Orde r Schedule HEMOGLOBIN A1C Lab Routine DM type 2 nursing care encounter (HCC) Every 3 Months for 4 Occurrences starting 11/06/2019 until 11/05/2020 Health Maintenance Due Date Last Done Comments [...] as of this encounter Results * CBC/DIFF (11/06/2019 1:46 PM EST) WBC 3.52(L) 4.00 - 10.80 K/uL [facility] RBC 2.65(L) 3.85 - 5.15 M/uL [facility] HGB 8.0(L) 12.0 - 15.3 g/dL [facility] HCT 27.7(L) 36.0 - 45.2 % [facility] MCV 104.5(H) 81.5 - 97.5 fL [facility] MCH 30.2 27.0 - 34.0 pg [facility] MCHC 28.9(L) 32.0 - 36.0 g/dL [facility] RDW 16.9(H) 11.5 - 15.5 % [facility] PLATELET COUNT 91(L) 140 - 400 K/uL [facility] MPV 14.3(H) 6.6 - 11.1 fL [facility] NRBC'S 1(H) 0 /100 WBCs [facility] NEUTS 49.0 40 - 75 % [facility] LYMPHS 31.3 18 - 42 % [facility] MONOS 12.2(H) 1 - 11 % [facility] EOS 6.0 0 - 6 % [facility] BASOS 0.9 0 - 2 % [facility] IMMATURE GRANULOCYTE 0.6 0 - 2 % [facility] ABS. NEUTS 1.73(L) 1.8 - 7.7 K/uL [facility] ABS. LYMPHS 1.10 1.0 - 4.8 K/uL [facility] ABS. MONOS 0.43 0.0 - 1.1 K/uL [facility] ABS. EOS 0.21 0.0 - 0.7 K/uL [facility] ABS. BASOS 0.03 0.0 - 0.2 K/uL [facility] ABSOLUTE IMMATURE GRANULOCYTES 0.02 0.0 - 0.2 K/uL [facility] HYPOCHROMIA SLIGHT [facility] MACROCYTOSIS PRESENT [facility] OVALOCYTES FEW [facility] Specimen Performing Organization Address City/State/Zipcod e Phone Number [facility] [address] [place] [address] documented in this encounter Visit Diagnoses Diagnosis Type 2 diabetes mellitus with hemoglobin A1c goal of less than 7.0% (HCC)- Primary DM type 2 nursing care encounter (HCC) Type II or unspecified type diabetes mellitus without mention of complication, not stated as uncontrolled Seborrheic dermatitis Seborrheic dermatitis, unspecified Intermittent asthma with reliever use up to twice per week without complication Cerebral palsy, unspecified type (HCC) Cirrhosis of liver without ascites, unspecified hepatic cirrhosis type (HCC) Cat scratch Other and unspecified superficial injury of other, multiple, and unspecified sites, without mention of infection Anemia, unspecified type documented in this encounter Advance Directives Documents on File Type Date Recorded Patient Speedometer Inspector Expl 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"
--- OUTSIDE RECORDS SUMMARY | 2023-05-10 22:57 | External Medical Summary | Summary of Care ---
Author Name Unknown Organization [facility] [place] [address] Care Team Providers Care Supervisor Microbiology Technologists Name Role Phone Rajwinder Carter DO Primary Care Provider [phone] Reason for Visit * Reason Comments Emergency Department Follow-Up Encounter Details Date Type Department Care Team Description 11/05/2019 Telephone [facility] [address], [place] [phone] Rajwinder Carter DO [address] [place], [place] [phone] Emergency Department Follow-Up Allergies Active Allergy Reactions Severity Noted Date Comments Penicillins Rash 02/12/2008 documented as of this encounter (statuses as of 11/05/2019) Medications Medication Sig Dispensed Refills Start Date [...] 30 Tab 0 10/09/2019 Active nystatin (NYSTOP) 018292 UNIT/GM powder Apply topically to affected area [...] as of this encounter (statuses as of 11/05/2019) Active Problems Problem Noted Date Thrombocytopenia 05/02/2019 [...] as of this encounter (statuses as of 11/05/2019) Resolved Problems Problem Noted Date Resolved Date [...] pain 01/24/2012 01/17/2017 Genetic Sleep Disorder Research Other*[id number] 05/13/2011 04/07/2016 Obstructive sleep apnea 01/18/2011 12/27/19 [...] as of this encounter (statuses as of 11/05/2019) Immunizations Name Administration Dates Next Due HEP [...] Miscellaneous Notes * Telephone Encounter - Marcy Mendez, WINDOW TRIMMER - 11/05/2019 11:01 AM EST Emergency Department Follow Up: When was patient seen: 11/04/2019 [facility] ED: [facility] What were they seen for: cough, blood in mucus What testing did they have done: cxr, lab work What did ED think was wrong (dx): pt unsure Any new medications prescribed: none How is patient feeling today: about the same Patient concerns today: Scheduled tomorrow with PCP per pt's request. * Telephone Encounter - Sabrina Batista OSA - 11/05/2019 10:58 AM EST Reason for patient's call: Patient was seen in [facility] ER 11/04/2019 Caller was transferred to Marcy at the nurse line. documented in this encounter Plan of Treatment Upcoming Encounters Date Type Specialty Care Team Description 11/06/2019 Office Visit Family Medicine [facility]inder [facility] [address] [facility] [place] [address] [phone] 11/25/2019 Office Visit [facility] [address] [facility] [place] [address] [phone] 11/26/2019 Office Visit [facility] [address] [facility] [address] [phone] 01/09/2020 Office Visit Gynecology Obstetrics Aman Small CNM [address] [place] [id number] 01/29/2020 Nutrition Services Gastroenterology Melissa Omalley RDN [address] [place] [id number] 09/03/2020 Imaging Radiology Health Maintenance Due Date [...] Documents on File Type Date Recorded Patient Metallurgical Tester Expl anation Advanced Directive service a kerri default Advanced Directive Advanced Directive Advanced Directive Advanced Directive Advanced Directive Advanced Directive Advanced Directive Advanced Directive
--- OUTSIDE RECORDS SUMMARY | 2023-05-10 22:57 | External Medical Summary | Summary of Care ---
Author Name Unknown Organization [facility] [place] [address] Care Team Providers Care Bonsai Tender Name Role Phone Rajwinder Carter DO Primary Care Provider [phone] Reason for Visit * Reason Comments Home Health Encounter Details Date Type Department Care Team Description 10/30/2019 Telephone [facility] [address] [place] [address] Rajwinder Carter DO [address] [place] [address] Home Health Allergies Active Allergy Reactions Severity Noted Date Comments Penicillins Rash 02/12/2008 documented as of this encounter (statuses as of 11/01/2019) Medications Medication Sig Dispensed Refills Start Date End Date Status CENTRUM SILVER PO TABS 1 tab daily 1 Tab 0 05/25/2012 Active vitamin c (ASCORBIC ACID) 500 MG Tablet Take 500 mg by mouth daily. 0 Active insulin glargine (LANTUS SOLOSTAR) 100 UNIT/ML SOPNIndications:Type 2 diabetes mellitus with hemoglobin A1c goal of less than 7.0% ([facility]) INJECT 24 UNITS UNDER THE SKIN [...] 7.0% ([facility]) TAKE 1 TABLET BY MOUTH TWICE [...] 30 Tab 0 10/09/2019 Active nystatin (NYSTOP) 373353 UNIT/GM powder Apply topically to affected area [...] as of this encounter (statuses as of 11/01/2019) Active Problems Problem Noted Date Thrombocytopenia 05/02/2019 [...] as of this encounter (statuses as of 11/01/2019) Resolved Problems Problem Noted Date Resolved Date [...] pain 01/24/2012 01/17/2017 Genetic Sleep Disorder Research Other*[id number] 05/13/2011 04/07/2016 Obstructive sleep apnea 01/18/2011 12/27/19 [...] as of this encounter (statuses as of 11/01/2019) Immunizations Name Administration Dates Next Due HEP [...] Telephone Encounter - Torrie Arciniega PA-C - 11/01/2019 8:08 AM EST Noted. * Telephone Encounter - Rajwinder Carter DO - 10/30/2019 4:56 PM EST Noted. * Telephone Encounter - Jovana Lambert, UMA - 10/30/2019 2:28 PM EST Spoke to [facility] They did Go see her [...] insurance will not pay for this Called [facility] Spoke to [facility] nurse She refused home care has a co pay but not willing to do this Torrie and Dr Carter Patient refusing Home care due to cost of copay She does have a private Aide that helps her documented in this encounter Plan of Treatment Upcoming Encounters Date Type Specialty Care Team Description 11/25/2019 Office Visit Family Medicine Rajwinder Carter DO [address] [place] [address] [phone] 11/26/2019 Office Visit Gastroenterology Lyssa Stout CRNP [address] [facility] [place] [address] [phone] 01/09/2020 Office Visit Gynecology Obstetrics Aman Small CNM [address] [place] [address] 01/29/2020 Nutrition Services Gastroenterology Melissa Omalley RDN [address] [facility] [address] [place] [address] 09/03/2020 Imaging [...] on File Type Date Recorded Patient Web Applications Administrator Expl anation Advanced Directive service a kerri default Advanced Directive Advanced Directive Advanced Directive Advanced Directive Advanced Directive Advanced Directive Advanced Directive Advanced Directive
--- OUTSIDE RECORDS SUMMARY | 2023-05-10 22:58 | External Medical Summary | Summary of Care ---
Author Name Unknown Organization [facility] [place] [address] Care Team Providers Care Miller Kiln Dried Salt Name Role Phone JohnbrianRajwinder thacker Primary Care Provider + [phone] Reason for Visit * Reason Comments Rash Rash on back Encounter Details Date Type Department Care Team Description 10/30/2019 Office Visit [facility] [address] [place] [address] Torrie Arciniega PA-C [address] [place] [address] [phone] Rash and nonspecific skin eruption*; Wound of back, unspecified laterality, subsequent encounter; Pressure injury of skin of right lower back, unspecified injury stage; DM type 2 with diabetic peripheral neuropathy [...] 30 Tab 0 10/09/2019 Active nystatin (NYSTOP) 436275 UNIT/GM powder Apply topically to affected area [...] 30 g 1 10/30/2019 11/13/19 20 Active Dulaglutide (TRULICITY) 1.5 MG/0.5ML SOPNIndications:Typ e 2 diabetes mellitus with hemoglobin A1c goal of less than 7.0% ([facility]) Inject 1 syringeful once weekly [...] pain 01/24/2012 01/17/2017 Genetic Sleep Disorder Research Other*[id number] 05/13/2011 04/07/2016 Obstructive sleep apnea 01/18/2011 12/27/19 [...] Reading Time Taken Comments Blood Pressure 118/70 10/30/2019 1:18 PM EST Pulse 62 10/30/2019 1:18 PM EST Temperature 36.1 C (96.9 F) 10/30/2019 1:18 PM ES T Respiratory Rate 18 10/30/2019 1:18 PM EST Oxygen Saturation 96% 10/30/2019 1:18 PM EST Inhaled Oxygen Concentration - - Weight - - Height - - Body Mass Index - - documented in this encounter Progress Notes * Torrie Arciniega PA-C - 10/30/2019 1:50 PM EST HPI: Shaina Bustos is a 64 year old female who presents to clinic for evaluation of a pressure woundon her low back. Thinks that it has been there since Monday, though we do have a home health referral from 10/21/2019 for the same wound. She tells me that it has at least been really itchy since Monday. They did put some Eucerin on it. She is unsure if home health has been out to see her or not. The Eucerin did seem to help calm down the itching some. She notes this is an area of friction with her lift. No fevers. They have a few questions about the medications. She currently has a prescription for Trulicity, Ozempic, Lantus. It sounds like they were doing the Trulicity once per week, Ozempic twice per week, Lantus once per week. It appears that the Trulicity should have been discontinued with new insurance c overage and Ozempic should replace the Trulicity. Lantus should be once daily. ROS: See HPI for positives and negatives. Patient denies additional complaints. PAST MEDICAL HISTORY: Patient Active Problem List Diagnosis Code Edema R60.9 Venous insufficiency I87.2 Spinal stenosis of lumbar region without neurogenic claudication M48.061 Cerebral palsy ([facility]) G80.9 HTN, goal below 140/90 [...] less than 7.0% ([facility]) E11.9 Vitamin D deficiency E55.9 Restrictive lung disease J98.4 Obesity, morbid (more than 100 lbs over ideal weight or BMI > 40) ([facility]) E66.01 Dyslipidemia, goal LDL below 70 E78.5 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 R39.81 Acquired hypothyroidism E03.9 Chronic pain syndrome G89.4 MEDICATION USE AGREEMENT [id number] History of Clostridium difficile colitis Z86.19 Cirrhosis of liver ([facility]) K74.60 THAD on CPAP G47.33, Z99.89 Wheelchair dependent Z99.3 History of recent fall Z91.81 Pancytopenia ([facility]) D61.818 Ambulatory dysfunction R26.2 Fall W19.XXXA Sprain of right ankle S93.401A DM type 2 with diabetic peripheral neuropathy ([facility]) E11.42 Insomnia G47.00 Recurrent major depressive disorder, in partial remission ([facility]) F33.41 Impaired mobility and ADLs Z74.09 Generalized weakness R53.1 Gastroesophageal reflux disease K21.9 History of kidney stones Z87.442 History of Achilles tendon repair Z98.890 History of delivery Z98.891 History of MRSA infection Z86.14 History of migraine Z86.69 Anemia D64.9 Fibromyalgia M79.7 Achilles tendinitis, right leg M76.61 DNR (do not resuscitate) Z66 Thrombocytopenia ([facility]) D69.6 Past Surgical History: Procedure Laterality Date DELIVERY 04/20/1982 COLONOSCOPY 04/21/09 repeat in 10 years COLONOSCOPY, DIAGNOSTIC (RECTUM) 10/04/2016 normal bx, repeat 10 yrs/[facility] DENTAL SURGERY PROCEDURE NEC wisdom teeth x 4 DILATION AND CURETTAGE (D&C) EGD, FLEXIBLE, DIAGNOSTIC 10/04/2016 gastritis/[facility] EGD, FLEXIBLE, DIAGNOSTIC 01/11/2018 eso varices, retained food, repeat 1 yr/[facility] PELVIS/HIP JOINT SURGERY NEC teenager aid in walking REPAIR/GRAFT ACHILLES TENDON age 40 aid in walking Review of patient's allergies indicates: Allergen Reactions Pcn [Penicillins] Rash Current Outpatient Medications Medication Sig Dispense Refill clotrimazole (LOTRIMIN) 1 % cream Apply topically to affected area 2 times a day for 14 days. Apply to low back 30 g 1 BD PEN NEEDLE MINI U/F 31G X 5 MM use with basaglar at bedtime 100 Each 10 nystatin (NYSTOP) 457154 UNIT/GM powder Apply topically to affected area 3 times a day. 60 g 1 cyclobenzaprine (FLEXERIL) 10 MG Tablet [...] BY MOUTH AT BEDTIME 30 Tab 4 gabapentin (NEURONTIN) 300 MG [...] TABS 1 tab daily 1 Tab 0 Nursing Notes: Janett DEVAN Hurst 10/30/19 1320 Signed Chief Complaint Patient presents with Rash Rash on back Patient also has questions about insulins. Not sure which she is to be taking EXAM: BP 118/70 | Pulse 62 | Temp (Src) 96.9 (Tympanic) | Resp 18 | Ht [wheelchair bound[ (0.000m) | Wt (0.000kg) | SaO2 96% General: Patient is a 64-year-old female who is awake alert and oriented x3. Patient is well appearing and in no acute distress. Resting comfortably in wheelchair. Skin: Difficult to assess as patient is unable to get out of wheelchair. She is able to lean forward slightly, but full area is unable to be visualized. There is some scaling and erythema on the low back approx 5cm x 5cm. HEENT: Head is atraumatic, normocephalic. PERRLA. Sclerae anicteric. Tongue is midline. Mucous membranes moist. Neck is supple. No lymphadenopathy. Cardiovascular: Regular rate and rhythm. S1 and S-2 appreciated. No murmurs. Lungs: Clear to auscultation bilaterally. No wheezes, rales, rhonchi. ASSESSMENT/PLAN Rash and nonspecific skin eruption (Primary) - clotrimazole (LOTRIMIN) 1 % cream; Apply topically to affected area 2 times a day for 14 days. Apply to low back Wound of back, unspecified laterality, subsequent encounter Pressure injury of skin of right lower back, unspecified injury stage DM type 2 with diabetic peripheral neuropathy (HCC) Recommend clotrimazole to cover for any fungal aspect. Continue with Eucerin. Recommend moving as much as possible. Will follow-up with home health for their evaluation and recommendation as they have lived at home. Teaching done for Ozempic today by pharmacy. Will have home health follow-up with medication list. Current med list should be correct. There are no Patient Instructions on file for this visit. Torrie Arciniega PA-C [address] [address] This chart was completed in part utilizing [employer] Speech Voice Recognition Software. Grammatical errors, random [...] Nursing Notes * Janett Hurst LPN - 10/30/2019 1:17 PM EST Chief Complaint Patient presents with Rash Rash on back Patient also has questions about insulins. Not sure which she is to be taking documented in this encounter Plan of Treatment Upcoming Encounters Date Type Specialty Care Team Description 11/25/2019 Office Visit Family Medicine Rajwinder Carter DO [address] [place] [address] 11/26/2019 Office Visit Gastroenterology Lyssa Stout CRNP [address] [place] [address] [phone] 01/09/2020 Office Visit Gynecology Obstetrics Aman Small, BOOM [address] [place] [id number] 01/29/2020 Nutrition Services Gastroenterology Melissa Omalley, [place] [address] [place] [id number] 09/03/2020 Imaging Radiology Health Maintenance Due Date [...] as of this encounter Visit Diagnoses Diagnosis Rash and nonspecific skin eruption- Primary Rash and other nonspecific skin eruption Wound of back, unspecified laterality, subsequent encounter Pressure injury of skin of right lower back, unspecified injury stage DM type 2 with diabetic peripheral neuropathy (HCC) Type II or unspecified type diabetes mellitus with neurological manifestations, not stated as uncontrolled documented in this encounter Advance Directives Documents on File Type Date Recorded Patient Assistant Production Editor Expl anation Advanced Directive service a kerri default Advanced Directive Advanced Directive Advanced Directive Advanced Directive Advanced Directive Advanced Directive Advanced Directive Advanced Directive"
--- OUTSIDE RECORDS SUMMARY | 2023-05-10 22:58 | External Medical Summary | Summary of Care ---
Author Name Unknown Organization [facility] Address [place] [address] Care Team Providers Care Loop Puller Name Role Phone Rajwinder Carter DO Primary Care Provider [phone] Reason for Visit * Reason Comments Order Request bed Encounter Details Date Type Department Care Team Description 10/29/2019 Telephone [facility] [address] [place] [address] Rajwinder Carter DO [address] [place], [place] [id number] Order Request (bed ) Allergies Active Allergy [...] than 7.0% ([facility]) INJECT 24 UNITS UNDER THE [...] 30 Tab 0 10/09/2019 Active nystatin (NYSTOP) 092797 UNIT/GM powder Apply topically to affected area [...] pain 01/24/2012 01/17/2017 Genetic Sleep Disorder Research Other*[id number] 05/13/2011 04/07/2016 Obstructive sleep apnea 01/18/2011 12/27/19 [...] encounter Miscellaneous Notes * Addendum Note - Jovana Lambert RN - 10/30/2019 4:18 PM EST Addended by: JOVANA LAMBERT on: 10/30/2019 04:18 PM Modules accepted: Orders * Telephone Encounter - Jovana Lambert RN - 10/30/2019 4:15 PM EST Please see requirements for hospital bed See OV note addendum info needed * Telephone Encounter - Naga Arias OSA - 10/30/2019 10:51 AM EST Juan Carlos calling from [facility] asking for a new script for the hospital bed. Script needs to say "semi-electric hospital bed with mattress and side rails" Also needs addendum to chart notes. " Pt requires frequent repositioning and positioning not feasible with an ordinary bed" Please fax new script and revised office notes to [phone] as soon as possible. * Telephone Encounter - Susan Rosales RN - 10/30/2019 9:48 AM EST Faxed order to [facility] with confirmation received * Telephone Encounter - Rajwinder Carter DO - 10/29/2019 5:04 PM EST Rx done. Please fax. On Jovana's desk. * Telephone Encounter - Rosio uHnter RN - 10/29/2019 2:32 PM EST Hospital bed pended. * Telephone Encounter - Lynsey Ferrari OSA - 10/29/2019 12:58 PM EST Patient's bed broke. She needs a script for another bed that adjusts on head and foot be sent to [facility]. documented in this encounter Plan of Treatment Upcoming Encounters Date Type Specialty Care Team Description 11/25/2019 Office Visit [facility] Medicine [facility]winder [facility] [address] [facility] [address] [phone] 11/26/2019 Office Visit Gastroenterology Lyssa Stout, ZAK [address] [facility] [place] [address] 01/09/2020 Office Visit Gynecology Obstetrics Aman Small, CNM [address] [place] [phone] 01/29/2020 Nutrition Services Gastroenterology Melissa Omalley, RDN [address] [place] [phone] 09/03/2020 Imaging Radiology Health Maintenance Due Date [...] Documents on File Type Date Recorded Patient Systems Analysis Manager Expl anation Advanced Directive service a kerri default Advanced Directive Advanced Directive Advanced Directive Advanced Directive Advanced Directive Advanced Directive Advanced Directive Advanced Directive
--- OUTSIDE RECORDS SUMMARY | 2023-05-10 22:58 | External Medical Summary | Summary of Care ---
Author Name Unknown Organization [facility] Address [place] [address] Care Team Providers Care Coil Shaper Name Role Phone Rajwinder Carter DO Primary Care Provider [phone] Reason for Visit * Reason Comments Order Request bed Encounter Details Date Type Department Care Team Description 10/29/2019 Telephone [facility] [address] [place] [address] Rajwinder Carter DO [address] [place], [place] [id number] Order Request (bed ) Allergies Active Allergy [...] mouth daily. Every other day 0 Active Dulaglutide (TRULICITY) 1.5 MG/0.5ML SOPNIndications:Type 2 diabetes mellitus with hemoglobin A1c goal of less than 7.0% (HCC) Inject 1 syringeful once weekly 4 Pre-filled Pen Syringe Dosing Unit 5 05/06/2019 Active gabapentin (NEURONTIN) 300 MG Capsule One [...] 30 Tab 0 10/09/2019 Active nystatin (NYSTOP) 270996 UNIT/GM powder Apply topically to affected area 3 times a day. 60 g 1 10/16/2019 Active BD PEN NEEDLE MINI U/F 31G X 5 MMIndications:Type 2 diabetes mellitus with hemoglobin A1c goal of less than 7.0% ([facility]) use with basaglar at bedtime 100 Each 10 10/29/2019 Active documented as of this encounter (statuses [...] pain 01/24/2012 01/17/2017 Genetic Sleep Disorder Research Other*[id number] 05/13/2011 04/07/2016 Obstructive sleep apnea 01/18/2011 12/27/19 [...] Encounters Date Type Specialty Care Team Description 10/30/2019 Office Visit Family Medicine Torrie [facility]ciniega PA-C [address] [facility] [id number] 11/25/2019 Office Visit [facility]inder [facility] [address] [facility] [address] [phone] 11/26/2019 Office Visit Gastroenterology Lyssa Stout CRNP [address] [facility] [place] [address] [phone] 01/09/2020 Office Visit Gynecology Obstetrics Aman Small CNM [address] [place] [address] [phone] 01/29/2020 Nutrition Services Gastroenterology Melissa Omalley RDN [address] [facility] [address] [place] [address] 09/03/2020 Imaging [...] Documents on File Type Date Recorded Patient Fagot Maker Expl anation Advanced Directive service a kerri default Advanced Directive Advanced Directive Advanced Directive Advanced Directive Advanced Directive Advanced Directive Advanced Directive Advanced Directive
--- OUTSIDE RECORDS SUMMARY | 2023-05-10 22:58 | External Medical Summary | Summary of Care ---
Author Name Unknown Organization [facility] Address [place] [address] Care Team Providers Care Inspector Plumbing Name Role Phone JohnbrianRajwinder thacker Primary Care Provider [phone] Reason for Visit * Reason Comments Rash Rash on back Encounter Details Date Type Department Care Team Description 10/30/2019 Office Visit Located [facility] [address] [place] [address] Torrie Arciniega PA-C [address] [place] [address] [phone] Rash and nonspecific skin eruption*; Wound of [...] 30 Tab 0 10/09/2019 Active nystatin (NYSTOP) 814534 UNIT/GM powder Apply topically to affected area [...] pain 01/24/2012 01/17/2017 Genetic Sleep Disorder Research Other*[id number] 05/13/2011 04/07/2016 Obstructive sleep apnea 01/18/2011 12/27/19 [...] Chronic pain syndrome G89.4 MEDICATION USE AGREEMENT [id number] History of Clostridium difficile colitis Z86.19 Cirrhosis [...] DIAGNOSTIC (RECTUM) 10/04/2016 normal bx, repeat 10 yrs/[facility] DENTAL SURGERY PROCEDURE NEC wisdom teeth x 4 DILATION AND CURETTAGE (D&C) EGD, FLEXIBLE, DIAGNOSTIC 10/04/2016 gastritis/[facility] EGD, FLEXIBLE, DIAGNOSTIC 01/11/2018 eso varices, retained food, repeat 1 yr/[facility] PELVIS/HIP JOINT SURGERY NEC teenager aid in [...] at bedtime 100 Each 10 nystatin (NYSTOP) 684673 UNIT/GM powder Apply topically to affected area [...] file for this visit. Torrie Arciniega PA-C [address] [address] This chart was completed in part utilizing [employer] Speech Voice Recognition Software. Grammatical errors, random [...] Family Medicine Rajwinder Carter DO [address] [place] [address] 11/26/2019 Office Visit Gastroenterology Lyssa Stout CRNP [address] [place] [address] [phone] 01/09/2020 Office Visit Gynecology Obstetrics Aman Small, BOOM [address] [place] [phone] 01/29/2020 Nutrition Services Gastroenterology Melissa Omalley, [place] [address] [place] [phone] 09/03/2020 Imaging Radiology Health Maintenance Due Date [...] Documents on File Type Date Recorded Patient Shed Workers Supervisor Expl anation Advanced Directive service a kerri default Advanced Directive Advanced Directive Advanced Directive Advanced Directive Advanced Directive Advanced Directive Advanced Directive Advanced Directive"
--- OUTSIDE RECORDS SUMMARY | 2023-05-10 22:58 | External Medical Summary | Summary of Care ---
Author Name Unknown Organization [facility] Address [place] [address] Care Team Providers Care Stamp Presser Name Role Phone Rajwinder Carter DO Primary Care Provider [phone] Reason for Visit * Reason Comments Letter Requests Encounter Details Date Type Department Care Team Description 10/11/2019 Telephone [facility] [address] [place] [address] Rajwinder Carter DO [address] [place] [address] Letter Requests Allergies Active Allergy Reactions Severity Noted Date Comments Penicillins Rash 02/12/2008 documented as of this encounter (statuses as of 10/29/2019) Medications Medication Sig Dispensed Refills Start Date [...] AT BEDTIME 30 Tab 0 10/09/2019 Active documented as of this encounter (statuses as of 10/29/2019) Active Problems Problem Noted Date Thrombocytopenia 05/02/2019 [...] as of this encounter (statuses as of 10/29/2019) Resolved Problems Problem Noted Date Resolved Date [...] pain 01/24/2012 01/17/2017 Genetic Sleep Disorder Research Other*[id number] 05/13/2011 04/07/2016 Obstructive sleep apnea 01/18/2011 12/27/19 [...] as of this encounter (statuses as of 10/29/2019) Immunizations Name Administration Dates Next Due HEP [...] Miscellaneous Notes * Telephone Encounter - Carlos Germain LPN - 10/29/2019 3:52 PM EST Irma calling to check on status of below message. States that they are looking for a letter of medical necessity. Call back number: [phone] * Telephone Encounter - Caron Vargas LPN [...] Family Medicine Torrie [facility]ciniega [facility]-C [address] [facility] [address] 11/25/2019 Office Visit Family Medicine [facility]winder Carter [facility] [address] [facility] [address] 11/26/2019 Office [facility] [address] [facility] [address] [phone] 01/09/2020 Office Visit [facility]ne[facility]stetrics Aman Small, MANAV [address] [facility] [place] [id number] 01/29/2020 Nutrition Services Gastroenterology Melissa Oamlley RDN [address] [facility] [address] [place] [phone] 09/03/2020 Imaging Radiology Health Maintenance Due Date [...] File Type Date Recorded Patient Protective Signal Repairer Helper Expl anation Advanced Directive service a kerri default Advanced Directive Advanced Directive Advanced Directive Advanced Directive Advanced Directive Advanced Directive Advanced Directive Advanced Directive
--- OUTSIDE RECORDS SUMMARY | 2023-05-10 22:58 | External Medical Summary | Summary of Care ---
Author Name Unknown Organization [facility] Address [place] [address] Care Team Providers Care Machine Filler Name Role Phone Rajwinder Carter DO Primary Care Provider [phone] Reason for Visit * Reason Comments Letter Requests Encounter Details Date Type Department Care Team Description 10/11/2019 Telephone [facility] [address] [place] [address] Rajwinder Carter DO [address] [place] [address] Letter Requests Allergies Active Allergy [...] of less than 7.0% ([facility]) INJECT 24 UNITS UNDER THE [...] pain 01/24/2012 01/17/2017 Genetic Sleep Disorder Research Other*[id number] 05/13/2011 04/07/2016 Obstructive sleep apnea 01/18/2011 12/27/19 [...] letter of medical necessity. Call back number: [phone] * Telephone Encounter - Car[place] Vargas LPN [...] Family Medicine Torrie Arciniega PA-C [address] [facility] [address] 11/25/2019 Office Visit [facility]inder Carter [facility] [address] [facility] [address] 11/26/2019 Office Visit [facility] Stout CRNP [address] [facility] [address] [phone] 01/09/2020 Office Visit [facility]necology Obstetrics Aman Small, [facility]NAV [address] [facility] [place] [phone] 01/29/2020 Nutrition Services Gastroenterology Melissa Omalley RDN [address] [facility] [address] [place] [phone] 09/03/2020 Imaging Radiology Health Maintenance Due Date [...] on File Type Date Recorded Patient Metal Spray Operator Expl anation Advanced Directive service a kerri default Advanced Directive Advanced Directive Advanced Directive Advanced Directive Advanced Directive Advanced Directive Advanced Directive Advanced Directive
--- OUTSIDE RECORDS SUMMARY | 2023-05-10 22:58 | External Medical Summary | Summary of Care ---
Author Name Unknown Organization [place] [address] Care Team Providers Care Cold Strip Feeder Name Role Phone Rajwinder Carter Primary Care Provider [phone] Reason for Visit * Reason Comments Dosage Adjustment In Person (Anticoag Cl inic) Encounter Details Date Type Department Care Team Description 10/30/2019 Office Visit Pharmacy, [address] [address] [facility] [address] [place] [address] [phone] Type 2 diabetes mellitus with hemoglobin A1c [...] of less than 7.0% ([facility]) TAKE 1 TABLET BY MOUTH TWICE [...] 30 Tab 0 10/09/2019 Active nystatin (NYSTOP) 903307 UNIT/GM powder Apply topically to affected area 3 times a day. 60 g 1 10/16/2019 Active BD PEN NEEDLE MINI U/F 31G X 5 MMIndications:Type 2 diabetes mellitus with hemoglobin A1c goal of less than 7.0% ([facility]) use with basaglar at bedtime 100 [...] pain 01/24/2012 01/17/2017 Genetic Sleep Disorder Research Other*[id number] 05/13/2011 04/07/2016 Obstructive sleep apnea 01/18/2011 12/27/19 [...] Progress Notes * Indira Hudson, [facility] - 10/30/2019 1:48 PM EST Patient in to see provider; provider asked MTM to see patient for a few minutes to review Ozempic. Patient was previously switched from Trulicity to Ozempic due to insurance and was confused. Taught patient and how to use Ozempic pen. Reviewed with patient individual steps to prepare and use Ozempic: wash hands; ensure liquid is clear and colorless; remove protective seal from penneedle, screw needle onto pen, remove both outer and inner needle caps; prime pen by dialing to flow check symbol and checking for drops (first use only); dial pen to appropriate dose; inject into indicated injection site; press and hold dose button until dial reads 0; count to 6; remove needle from skin; dispose of pen needle appropriately. Pen can be stored at room temperature up to 56 days. They verbalized understanding and displayed successful technique. Patient will continue to follow-up with her provider. Indira Hudson RP, Pharm D, BCACP Clinical Pharmacist 10/30/19 1:50 PM documented in this encounter Plan of Treatment Upcoming Encounters Date Type Specialty Care Team Description 11/25/2019 Office Visit Family Medicine [facility]inder [facility] [address] [facility] [address] 11/26/2019 Office [facility] [address] [facility] [address] [phone] 01/09/2020 Office Visit Gynecology Obstetrics Aman Small CNM [address] [place] [id number] 01/29/2020 Nutrition Services Gastroenterology Melissa Omalley RDN [...] goal of less than 7.0% ([facility])- Primary documented in this encounter Advance Directives Documents on File Type Date Recorded Patient Telephone Operators Supervisor Expl anation Advanced Directive service a kerri default Advanced Directive Advanced Directive Advanced Directive Advanced Directive Advanced Directive Advanced Directive Advanced Directive Advanced Directive
--- OUTSIDE RECORDS SUMMARY | 2023-05-10 22:58 | External Medical Summary | Summary of Care ---
Author Name Unknown Organization [facility] [place] [address] Care Team Providers Care Commercial Food Instructor Name Role Phone JohnbrianRajwinder thacker Primary Care Provider [phone] Reason for Visit * Reason Comments Rash Rash on back Encounter Details Date Type Department Care Team Description 10/30/2019 Office Visit [facility] [address] [place] [address] Torrie Arciniega PA-C [address] [place] [address] [phone] Rash and nonspecific skin eruption*; Wound of [...] of less than 7.0% ([facility]) TAKE 1 TABLET BY MOUTH [...] 30 Tab 0 10/09/2019 Active nystatin (NYSTOP) 473719 UNIT/GM powder Apply topically to affected area [...] of less than 7.0% ([facility]) Inject 1 syringeful once weekly [...] pain 01/24/2012 01/17/2017 Genetic Sleep Disorder Research Other*[id number] 05/13/2011 04/07/2016 Obstructive sleep apnea 01/18/2011 12/27/19 [...] region without neurogenic claudication M48.061 Cerebral palsy ([facility]) G80.9 HTN, goal below 140/90 I10 Chronic rhinitis J31.0 NG (nonalcoholic steatohepatitis) K75.81 Venous stasis dermatitis of both lower extremities I87.2 DDD (degenerative disc disease), lumbar M51.36 Intermittent asthma with reliever use up to twice per week J45.20 Primary osteoarthritis of right knee M17.11 Lymphedema I89.0 Type 2 diabetes mellitus with hemoglobin A1c goal of less than 7.0% ([facility]) E11.9 Vitamin D deficiency E55.9 Restrictive lung disease J98.4 Obesity, morbid (more than 100 lbs over ideal weight or BMI > 40) ([facility]) E66.01 Dyslipidemia, goal LDL below 70 E78.5 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 R39.81 Acquired hypothyroidism E03.9 Chronic pain syndrome G89.4 MEDICATION USE AGREEMENT [id number] History of Clostridium difficile colitis Z86.19 Cirrhosis of liver ([facility]) K74.60 THAD on CPAP G47.33, Z99.89 Wheelchair dependent Z99.3 History of recent fall Z91.81 Pancytopenia ([facility]) D61.818 Ambulatory dysfunction R26.2 Fall [...] resuscitate) Z66 Thrombocytopenia ([facility]) D69.6 Past Surgical History: Procedure Laterality Date DELIVERY 04/20/1982 COLONOSCOPY 04/21/09 repeat in 10 years COLONOSCOPY, DIAGNOSTIC (RECTUM) 10/04/2016 normal bx, repeat 10 yrs/[facility] DENTAL SURGERY PROCEDURE NEC wisdom teeth x 4 DILATION AND CURETTAGE (D&C) EGD, FLEXIBLE, DIAGNOSTIC 10/04/2016 gastritis/[facility] EGD, FLEXIBLE, DIAGNOSTIC 01/11/2018 eso varices, retained food, repeat 1 yr/[facility] PELVIS/HIP JOINT SURGERY NEC teenager aid [...] at bedtime 100 Each 10 nystatin (NYSTOP) 491975 UNIT/GM powder Apply topically to affected area [...] file for this visit. Torrie Arciniega PA-C [address] [address] This chart was completed in part utilizing [employer] Speech Voice Recognition Software. 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
--- OUTSIDE RECORDS SUMMARY | 2023-05-10 22:58 | External Medical Summary | Summary of Care ---
Author Name Unknown Organization [facility] Address [place] [address] Care Team Providers Care Internet Ecommerce Specialist Name Role Phone Rajwinder Carter DO Primary Care Provider [phone] Reason for Visit * Reason Comments Order Request bed Encounter Details Date Type Department Care Team Description 10/29/2019 Telephone [facility] [address] [place] [address] Rajwinder Carter DO [address] [place], [place] [phone] Order Request (bed ) Allergies Active Allergy [...] 7.0% ([facility]) TAKE 1 TABLET BY MOUTH TWICE DAILY [...] 4 09/13/2019 Active pantoprazole (PROTONIX) 20 MG TBECIndications:Rhoit roesophageal reflux disease, esophagitis presence not specified,NAFLD [...] 30 Tab 0 10/09/2019 Active nystatin (NYSTOP) 485031 UNIT/GM powder Apply topically to affected area 3 times a day. 60 g 1 10/16/2019 Active BD PEN NEEDLE MINI U/F 31G X 5 MMIndications:Type 2 diabetes mellitus with hemoglobin A1c goal of less than 7.0% ([facility]) use with basaglar at bedtime 100 Each [...] pain 01/24/2012 01/17/2017 Genetic Sleep Disorder Research Other*[id number] 05/13/2011 04/07/2016 Obstructive sleep apnea 01/18/2011 12/27/19 [...] Miscellaneous Notes * Telephone Encounter - Naga Arias OSA - 10/30/2019 10:51 AM EST Juan Carlos calling from [facility] asking for a new script for the hospital bed. Script needs to say "semi-electric hospital bed with mattress and side rails" Also needs addendum to chart notes. " Pt requires frequent repositioning and positioning not feasible with an ordinary bed" Please fax new script and revised office notes to [phone] as soon as possible. * Telephone Encounter [...] Office Visit Family Medicine Torrie Arciniega PA-C [address] [facility] [address] [phone] 11/25/2019 Office Visit Family Medicine Rajwinder Carter DO [address] [place] [address] [phone] 11/26/2019 Office Visit Gastroenterology Lyssa Stout CRNP [address] [place] [address] [place] [address] [phone] 01/09/2020 Office Visit Gynecology Obstetrics Aman Small, MANAV [address] [place] [address] 01/29/2020 Nutrition Services Gastroenterology [...] Documents on File Type Date Recorded Patient Dietary Aide Teacher Expl anation Advanced Directive service a kerri default Advanced Directive Advanced Directive Advanced Directive Advanced Directive Advanced Directive Advanced Directive Advanced Directive Advanced Directive
--- OUTSIDE RECORDS SUMMARY | 2023-05-10 22:58 | External Medical Summary | Summary of Care ---
Author Name Unknown Organization [place] [address] Care Team Providers Care Primary Education Professor Name Role Phone JohnbrianRajwinder thacker Primary Care Provider [phone] Reason for Visit * Reason Comments Weight Management Encounter Details Date Type Department Care Team Description 10/29/2019 Nutrition Services Nutrition & Weight Management, [facility] [address] [facility] [place] [address] Melissa Omalley RDN [address] [place] [id number] Obesity, morbid (more than 100 lbs over ideal weight or BMI > 40) ([facility] [place])*; Type 2 diabetes mellitus with hemoglobin A1c goal of less than 7.0% ([facility]); HTN, goal below 140/90; Lymphedema; Dyslipidemia, goal LDL below 70; Acquired [...] less than 7.0% ([facility]) Inject 1 syringeful once weekly 4 [...] of less than 7.0% ([facility]) TAKE 1 TABLET BY MOUTH TWICE [...] 30 Tab 0 10/09/2019 Active nystatin (NYSTOP) 438502 UNIT/GM powder Apply topically to affected area 3 times a day. 60 g 1 10/16/2019 Active documented as of this encounter (statuses [...] pain 01/24/2012 01/17/2017 Genetic Sleep Disorder Research Other*[id number] 05/13/2011 04/07/2016 Obstructive sleep apnea 01/18/2011 12/27/19 [...] Reading Time Taken Comments Blood Pressure 122/70 10/29/2019 11:20 AM EST Pulse 68 10/29/2019 11:20 AM EST Temperature - - Respiratory Rate - - Oxygen Saturation - - Inhaled Oxygen Concentration - - Weight - - Height - - Body Mass Index - - documented in this encounter Patient Instructions * Patient Instructions* Melissa Omalley RDN - 10/29/2019 12:02 PM EST PATIENT GOALS: 1) Patient to try smaller frequent meals to aid with better tolerance. Patient to use an oral meal replacement such as Ensure to aid with weight management as well as meeting adequate calories and nutrient needs. 2)Patient to focus on a well balanced at meals such as a protein, fruit vegetable and limited starch. Patient to focus on choosing more whole grain breads, whole grain pastas etc in limited amounts. 3) Patient to drink more water with goal of 48-64 ounces day. documented in this encounter Progress Notes * Melissa Omalley RDN - 10/29/2019 11:14 AM EST GI/NUTRITION CONSULT [facility] Patient was identified at visit by name and date. PATIENT: Shaina Bustos DATE: 10/29/2019 NUTRITION ASSESSMENT Diagnosis Code for referral for [...] return visit nutrition counseling for weight management. Describes typical diet history/24 hr recall: Breakfast: One bagel, oatmeal Sometimes eggs Lunch: Around 1 pm Dinner: Stew or a snack Susan Calendar Frozen rice meals ( such as uncle priscilla's) Drinks: 48-64 ounces of fluid a day Patient complains of feelinf full after eating. Staff reports patient burping After eating a meal every time. WT GOAL: Patient would like to lose 100 lbs long-term LAST VISIT WT: 256 lbs 07/24/19 Ht: 4'11" BMI: 51.7 Unable to weight patient. Patient is unable to stand for very long to obtain weight. Obtained weight of scooter from housemaid: 374 lbs Wt Readings from Last 10 Encounters: 06/06/19 116.1 kg (256 lb) 05/22/19 120.7 kg (266 lb) 02/06/19 118 kg (260 lb 1.6 oz) 12/24/18 118.1 kg (260 lb 6.4 oz) 12/24/18 118.1 kg (260 lb 6.4 oz) 12/21/18 115.2 kg (254 lb) 09/24/18 115.2 kg (254 lb) 09/24/18 115.2 kg (254 lb) 07/16/18 111.4 kg (245 lb 9.6 oz) 07/16/18 111.4 kg (245 lb 9.6 oz) WEIGHT CHANGES: Weight decreased 10 lbs the same since last visit. MNT: Calorie Controlled Diet, Consistent Carbohydrate Patient is interested in the following treatment options for obesity: medical management. BARRIERS TO LEARNING: None SPECIAL EDUCATION NEEDS: None LABS: Component Latest Ref Rng & Units 06/06/2019 BUN 6 - 20 mg/dL 11 CREATININE 0.5 - 1.0 mg/dL 0.6 E GLOM FILT RATE >60 >60.0 SODIUM 135 - 146 mmol/L 143 POTASSIUM 3.5 - 5.1 mmol/L 4.0 CHLORIDE 98 - 107 mmol/L 106 CO2 22 - 32 mmol/L 24 ANION GAP 7 - 15 mmol/L 13 GLUCOSE 70 - 120 mg/dL 249 (H) ALBUMIN 3.8 - 5.0 g/dL 3.9 AST 10 - 35 U/L 38 (H) ALKALINE PHOSPHATASE 0 - 153 U/L 123 BILIRUBIN 0 - 1.2 mg/dL 0.4 CALCIUM 8.4 - 10.2 mg/dL 9.1 PROTEIN 6.0 - 8.3 g/dL 6.8 ALT 10 - 35 U/L 27 PHYSICAL ACTIVITY:Light SUPPLEMENTS: Vitamin C PRIOR NUTRITION COUNSELING: No prior counseling DAILY ENERGY/NUTRIENT NEEDS:[id number] KCALS for wt loss DIET RECALL INDICATES: [...] an oral meal replacement such as Ensure to aid with weight management as well [...] dietitian phone # given for future reference. Messaged primary MD re: medical questions patient had prior to her visit in 2 weeks. Spoke with GI nurse. Last visits weight can be deducted to get an estimated on the scooter weight just to get a baseline for monitoring since patient cannot walk or be lifted onto the scale. This RDNto investigate if there is another clinic scale on site to weigh patient with the scooter. 30 minutes return visit Melissa Omalley RDN documented in this encounter Nursing Notes * Lynn Del Rio LPN - 10/29/2019 11:19 AM EST Pt here for 3 month check up Caregiver states pt has a sore on her back and that she needs a face to face for a new hospital bed- can be with any doctor States order can be faxed to [facility] [place] Pt unable to stand and be weighed today documented in this encounter Plan of Treatment Upcoming Encounters Date Type Specialty Care Team Description 11/25/2019 Office Visit Family Medicine Rajwinder Carter, DO [address] [place], [place] [id number] 11/26/2019 Office Visit Gastroenterology Lyssa Stout, ZAK [address] [facility] [place] [address] [phone] 01/09/2020 Office Visit Gynecology Obstetrics Aman Small, CNM [address] [place] [phone] 01/29/2020 Nutrition Services Gastroenterology Melissa Omalley, SAMANTHA [address] [place] [id number] 09/03/2020 Imaging Radiology Scheduled Orders Name Type Priority Associated Diagnoses Orde r Schedule MED NUTRITION TX; SUBSEQ 15 MIN (PROVIDER) Procedures Routine Obesity, morbid (more than 100 lbs over ideal weight or BMI > 40) ([facility]) Type 2 diabetes mellitus with hemoglobin A1c goal of less than 7.0% ([facility]) HTN, goal below 140/90 Lymphedema Dyslipidemia, goal LDL below 70 Acquired hypothyroidism Ordered: 10/29/2019 Health Maintenance Due Date Last Done Comments [...] over ideal weight or BMI > 40) ([facility])- Primary Morbid obesity Type 2 diabetes mellitus with hemoglobin A1c goal of less than 7.0% ([facility]) HTN, goal below 140/90 Unspecified essential hypertension Lymphedema Other lymphedema Dyslipidemia, goal LDL below 70 Other and unspecified hyperlipidemia Acquired hypothyroidism Unspecified hypothyroidism documented in this encounter Advance Directives Documents on File Type Date Recorded Patient Security Police Expl anation Advanced Directive service a kerri default Advanced Directive Advanced Directive Advanced Directive Advanced Directive Advanced Directive Advanced Directive Advanced Directive Advanced Directive
--- OUTSIDE RECORDS SUMMARY | 2023-05-10 22:59 | External Medical Summary | Summary of Care ---
Author Name Unknown Organization [place] [address] Care Team Providers Care Registered Nurse Post Partum Name Role Phone Rajwinder Lara DO Primary Care Provider [phone] Reason for Visit * Reason Comments eRx-Medication Refill Encounter Details Date Type Department Care Team Description 10/28/2019 Refill Pharmacy, [address] [address] Rajwinder Lara DO [address] [place] [address] [phone] Type 2 diabetes mellitus with hemoglobin A1c goal of less than 7.0% ([facility]) Allergies Active Allergy Reactions Severity [...] of less than 7.0% ([facility]) TAKE 1 TABLET BY MOUTH [...] 30 Tab 0 10/09/2019 Active nystatin (NYSTOP) 907406 UNIT/GM powder Apply topically to affected area 3 times a day. 60 g 1 10/16/2019 Active BD PEN NEEDLE MINI U/F 31G X 5 MMIndications:Type 2 diabetes mellitus with hemoglobin A1c goal of less than 7.0% ([facility]) use with basaglar at bedtime [...] pain 01/24/2012 01/17/2017 Genetic Sleep Disorder Research Other*[id number] 05/13/2011 04/07/2016 Obstructive sleep apnea 01/18/2011 12/27/19 [...] Encounter - Rajwinder Lara DO - 10/29/2019 12:28 PM EST Signed Prescriptions: Disp Refills BD PEN NEEDLE MINI U/F 31G X 5 MM 100 Ea*10 Sig: use with basaglar at bedtime Authorizing Provider: RAJWINDER LARA * Telephone Encounter - Keyonna Barillas LPN - 10/29/2019 11:47 AM EST Pending Prescriptions: Disp Refills BD PEN NEEDLE MINI U/F 31G X 5 MM [Pharma* 10 Sig: use with basaglar at bedtime * Telephone Encounter - Keyonna Barillas LPN - 10/29/2019 11:41 AM EST FAX REFILL PROCESS: Last Office Visit: 10/02/2019 Next Office Visit: 11/25/2019 Date of last refill for this med: No history of the refill PCP: Rajwinder Lara DO Patient Active Problem List Diagnosis Code Edema [...] of less than 7.0% ([facility]) E11.9 Vitamin D deficiency E55.9 Restrictive lung disease J98.4 Obesity, morbid (more than 100 lbs over ideal weight or BMI > 40) ([facility]) E66.01 Dyslipidemia, goal LDL below 70 E78.5 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 R39.81 Acquired hypothyroidism E03.9 Chronic pain syndrome G89.4 MEDICATION USE AGREEMENT [id number] History of Clostridium difficile colitis Z86.19 Cirrhosis of liver ([facility]) K74.60 THAD on CPAP G47.33, Z99.89 Wheelchair dependent Z99.3 History of recent fall Z91.81 Pancytopenia ([facility]) D61.818 Ambulatory dysfunction R26.2 Fall W19.XXXA Sprain of right ankle S93.401A DM type 2 with diabetic peripheral neuropathy ([facility]) E11.42 Insomnia G47.00 Recurrent major depressive disorder, in partial remission ([facility]) F33.41 Impaired mobility and ADLs Z74.09 Generalized weakness R53.1 Gastroesophageal reflux disease K21.9 History of kidney stones Z87.442 History of Achilles tendon repair Z98.890 History of delivery Z98.891 History of MRSA infection Z86.14 History of migraine Z86.69 Anemia D64.9 Fibromyalgia M79.7 Achilles tendinitis, right leg M76.61 DNR (do not resuscitate) Z66 Thrombocytopenia ([facility]) D69.6 LABS: CREATININE(mg/dL) Lucio Dt/Tm Resulted Value Status 06/06/19 1:03P 06/06/19 0.6 FINAL POTASSIUM(mmol/L) [place] Dt/Tm Resulted Value Status 06/06/19 1:03P 06/06/19 4.0 FINAL TSH(uIU/mL) [place]io Dt/Tm Resulted Value Status 04/05/19 6:40A 04/05/19 3.16 FINAL LDL (CALCULATED)(mg/dL) [place] Dt/Tm Resulted Value Status 04/05/19 6:40A 04/05/19 43 FINAL LDL (DIRECT MEASURE)(mg/dL) [place] Dt/Tm Resulted Value Status 10/11/17 1:18P 10/11/17 57 FINAL ALT(U/L) [place]io Dt/Tm Resulted Value Status 06/06/19 1:03P 06/06/19 27 FINAL Hemoglobin AIC Results: HEMOGLOBIN, A1C(%) [place] Dt/Tm Resulted Value Status 04/05/19 6:40A 04/06/19 6.5* FINAL 09/21/18 11:23A 09/21/18 6.1* FINAL 02/13/18 3:27P 02/13/18 7.1* FINAL * Telephone Encounter - Indira Hudson [facility] - 10/29/2019 8:24 AM EST Pending Prescriptions: Disp Refills BD PEN NEEDLE MINI U/F 31G X 5 MM [Pharma* 10 Sig: use with basaglar at bedtime documented in this encounter Plan of Treatment Upcoming Encounters Date Type Specialty Care Team Description 11/25/2019 Office Visit Family Medicine [facility]inder Lara DO [address] [facility] [address] 11/26/2019 Office Visit [facility]ology [facility]out CR[facility] [address] [facility] [address] 01/09/2020 Office Visit Gynecology Obstetrics Aman Small, BOOM [address] [place] [id number] 01/29/2020 Nutrition Services Gastroenterology Melissa Omalley, SAMANTHA [address] [place] [id number] 09/03/2020 Imaging Radiology Health Maintenance Due Date [...] Documents on File Type Date Recorded 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
--- OUTSIDE RECORDS SUMMARY | 2023-05-10 22:59 | External Medical Summary | Summary of Care ---
Author Name Unknown Organization [facility] Address [place] [address] Care Team Providers Care Cardiovascular Disease Specialist Name Role Phone Rajwinder Carter DO Primary Care Provider [phone] Reason for Visit * Reason Comments Order Request Encounter Details Date Type Department Care Team Description 10/23/2019 Telephone [facility] [address] [place] [address] Rajwinder Carter DO [address] [place] [address] Order Request Allergies Active Allergy Reactions Severity Noted Date Comments Penicillins Rash 02/12/2008 documented as of this encounter (statuses as of 10/24/2019) Medications Medication Sig Dispensed Refills Start Date [...] 30 Tab 0 10/09/2019 Active nystatin (NYSTOP) 448538 UNIT/GM powder Apply topically to affected area 3 times a day. 60 g 1 10/16/2019 Active documented as of this encounter (statuses as of 10/24/2019) Active Problems Problem Noted Date Thrombocytopenia 05/02/2019 [...] dependent 12/21/2018 History of recent fall 12/21/2018 TAHD on CPAP 12/26/2017 Cirrhosis of [...] as of this encounter (statuses as of 10/24/2019) Resolved Problems Problem Noted Date Resolved Date [...] pain 01/24/2012 01/17/2017 Genetic Sleep Disorder Research Other*[id number] 05/13/2011 04/07/2016 Obstructive sleep apnea 01/18/2011 12/27/19 [...] as of this encounter (statuses as of 10/24/2019) Immunizations Name Administration Dates Next Due HEP [...] Telephone Encounter - Rajwinder Carter DO - 10/23/2019 4:49 PM EST Yes, I am fine with those orders. * Telephone Encounter - Shannan Bojorquez LPN - 10/23/2019 4:22 PM EST Call From home care nurse, visited pt today to evaluate wound on pt's back. Does have a pressure ulcer, moisture due to being in a fold. Would like order to apply [employer] and cover with Optifoamevery other day. Is going to fax order for signing if agreeable. documented in this encounter Plan of Treatment Upcoming Encounters Date Type Specialty Care Team Description 10/29/2019 Nutrition Services Gastroenterology Melissa Omalley, SAMANTHA [address] [place] [id number] 11/25/2019 Office Visit Family Medicine Rajwinder Carter DO [address] [facility] [place] [address] 11/26/2019 Office Visit [facility]ology [facility] [address] [phone] 01/09/2020 Office Visit Gynecology Obstetrics Aman Small CNM [address] [facility] [place] [id number] 09/03/2020 Imaging Radiology Health Maintenance Due Date [...] on File Type Date Recorded Patient Project Development Coordinator Expl anation Advanced Directive service a kerri default Advanced Directive Advanced Directive Advanced Directive Advanced Directive Advanced Directive Advanced Directive Advanced Directive Advanced Directive
--- OUTSIDE RECORDS SUMMARY | 2023-05-10 22:59 | External Medical Summary | Summary of Care ---
Author Name Unknown Organization [place] [address] Care Team Providers Care Tool Carrier Name Role Phone Rajwinder Carter DO Primary Care Provider + [phone] Reason for Referral * Evaluate & Treat - Unlimited Visits (Within 10 days (routine)) Status Reason Specialty Diagnoses / Procedures Referred By Contact Referred To Contact Pending Review Specialty Services Required HOME CARE / Home Care Diagnoses Back wound Pressure injury of skin of back, unspecified injury stage Rajwinder Carter DO [address] [place] [address] Reason for Visit * Reason Comments Advice Encounter Details Date Type Department Care Team Description 10/21/2019 Telephone [facility] [address], [place] [id number] Rajwinder Carter DO [address] [place] [address] [phone] Advice Allergies Active Allergy Reactions Severity Noted Date Comments Penicillins Rash 02/12/2008 documented as of this encounter (statuses as of 10/22/2019) Medications Medication Sig Dispensed Refills Start Date [...] 30 Tab 0 10/09/2019 Active nystatin (NYSTOP) 744662 UNIT/GM powder Apply topically to affected area 3 times a day. 60 g 1 10/16/2019 Active documented as of this encounter (statuses as of 10/22/2019) Active Problems Problem Noted Date Thrombocytopenia 05/02/2019 [...] as of this encounter (statuses as of 10/22/2019) Resolved Problems Problem Noted Date Resolved Date [...] pain 01/24/2012 01/17/2017 Genetic Sleep Disorder Research Other*[id number] 05/13/2011 04/07/2016 Obstructive sleep apnea 01/18/2011 12/27/19 [...] as of this encounter (statuses as of 10/22/2019) Immunizations Name Administration Dates Next Due HEP [...] Telephone Encounter - Susan Rosales RN - 10/22/2019 7:56 AM EST Faxed orders, last ov, demographics Left message on home phone that referral faxed to [facility] * Telephone Encounter - Rajwinder Carter DO - 10/21/2019 5:00 PM EST Please fax order. Continue with treatment as they are doing. OV with persistent issues. * Telephone Encounter - Rosio Hunter RN - 10/21/2019 3:51 PM EST Home Health referral pended if agreeable. * Telephone Encounter - Abbie Martinez OSA - 10/21/2019 1:00 PM EST Patient calling back concerning open areas on her back and request for home nursing. Please advise at [phone]. * Telephone Encounter - Dinorah Lowry LPN - 10/21/2019 10:46 AM EST Spoke with patient and caregiver. 2 areas on back. The one the size of a pencil eraser is open- little wet and very sore. Other one is 4cm in a crease, reddened, sore, not open. Feels like a scratch. Her bed is being evaluated today. Bed pump isn't filling up the bed properly. Putting barrier cream, nystatin on the area. Patient repositions herself mostly. Lays on her side at night time, so she's not on that area. Please advise. Appt for eval or advise OTC treatment? Lynsey states that patient is in a wheel chair so for her to come in it would be hard to evaluate unless a candace lift is used. Asking if possible home nursing should be ordered before the areas worsen. [facility] Is preferred. Call patients cell phone-- [phone] * Telephone Encounter - Marcelle Rosales OSA - 10/21/2019 10:44 AM EST Reason for patient's call: pt & caregiver Lynsey calling in about 2 spots on pts back, possiblebed sores, and wants to speak with a nurse Caller was transferred to Dinorah at the nurse line. documented in this encounter Plan of Treatment Upcoming Encounters Date Type Specialty Care Team Description 10/29/2019 Nutrition Services Gastroenterology Melissa Omalley, LUIS [place] [address] [address] [place] [id number] 11/25/2019 Office Visit Family Medicine Rajwinder Carter DO [address] [facility] [place] [id number] 11/26/2019 Office Visit [facility]ology [facility]out [facility] [address] [phone] 01/09/2020 Office Visit Gynecology Obstetrics Aman Small, BOO [address] [facility] [place] [phone] 09/03/2020 Imaging Radiology Scheduled Referrals Name Type Priority Associated Diagnoses Orde r Schedule HOME HEALTH REFERRAL OP Referral Within 10 days (routine) Back wound Pressure injury of skin of back, unspecified injury stage Ordered: 10/21/2019 Health Maintenance Due Date Last Done Comments [...] as of this encounter Visit Diagnoses Diagnosis Back wound- Primary Open wound of back, without mention of complication Pressure injury of skin of back, unspecified injury stage documented in this encounter Advance Directives Documents on File Type Date Recorded Patient Rockboard Lather Expl anation Advanced Directive service a kerri default Advanced Directive Advanced Directive Advanced Directive Advanced Directive Advanced Directive Advanced Directive Advanced Directive Advanced Directive
--- OUTSIDE RECORDS SUMMARY | 2023-05-10 22:59 | External Medical Summary | Summary of Care ---
Author Name Unknown Organization [facility] Address [place] [address] Care Team Providers Care Car Ferrier Name Role Phone Rajwinder Carter DO Primary Care Provider [phone] Reason for Visit * Reason Comments Other Encounter Details Date Type Department Care Team Description 10/22/[address] [facility] [address] [place] [address] Rajwinder Carter DO [address] [place] [address] Other Allergies Active Allergy Reactions Severity Noted [...] of less than 7.0% ([facility]) INJECT 24 UNITS UNDER THE [...] of less than 7.0% ([facility]) TAKE 1 TABLET BY MOUTH [...] 30 Tab 0 10/09/2019 Active nystatin (NYSTOP) 016516 UNIT/GM powder Apply topically to affected area [...] pain 01/24/2012 01/17/2017 Genetic Sleep Disorder Research Other*[id number] 05/13/2011 04/07/2016 Obstructive sleep apnea 01/18/2011 12/27/19 [...] Encounter - Susan Rosales RN - 10/22/2019 1:17 PM EST KATLYN Maynard given message below and they will assess and call with recommendations * Telephone Encounter - Rajwinder Carter DO - 10/22/2019 12:27 PM EST Yes. I have not seen the wound so I am not sure what is needed. They cannot get pt into office for visit. * Telephone Encounter - Shelly Hirsch LPN - 10/22/2019 10:02 AM EST [facility] calling [facility]. Received referral. There is a back wound. There is no treatment order for the wound. Is this something that the doctor wants them to eval and come back with recommendations? * Telephone Encounter - Quyen Starks OSA - 10/22/2019 10:00 AM EST Reason for patient's call: Aleyda calling from [facility] to speak with a nurse about pt Caller was transferred to [facility] at the nurse line. documented in this encounter Plan of Treatment Upcoming Encounters Date Type Specialty Care Team Description 10/29/2019 Nutrition Services Gastroenterology Melissa Omalley RDN [address] [facility] [place] [address] [place] [address] [phone] 11/25/2019 Office Visit Family Medicine Rajwinder Carter DO [address] [facility] [place] [address] [phone] 11/26/2019 Office Visit [facility]astroenterology [facility]sa Stout CRNP [address] [facility] [address] [phone] 01/09/2020 Office Visit Gynecology Obstetrics Aman Small CNM [address] [place] [place] [address] [phone] 09/03/2020 Imaging Radiology Health Maintenance Due Date [...] on File Type Date Recorded Patient Flight Technician Expl anation Advanced Directive service a kerri default Advanced Directive Advanced Directive Advanced Directive Advanced Directive Advanced Directive Advanced Directive Advanced Directive Advanced Directive
--- OUTSIDE RECORDS SUMMARY | 2023-05-10 22:59 | External Medical Summary | Summary of Care ---
Author Name Unknown Organization [place] [address] Care Team Providers Care Barrel Turner Name Role Phone Rajwinder Carter DO Primary Care Provider + [phone] Reason for Visit * Reason Comments Cardiology Study Echo * Precert (Routine) Status Reason Specialty Diagnoses / Procedures Referred By Contact Referred To Contact Closed Precert Cardiac Studies Diagnoses Pulmonary vascular congestion Procedures ECHO, COMPLETE (2D), TRANS-THORACIC Rajwinder Carter DO [address] [place] [address] Encounter Details Date Type Department Care Team Description 10/16/2019 Cardiac Studies Cardiac Studies, [facility] [address] [place] [address] Gw, Brain Picker 2 [address] [place] [address] [phone] Pulmonary vascular congestion* Allergies Active Allergy Reactions Severity Noted Date Comments Penicillins Rash 02/12/2008 documented as of this encounter (statuses as of 10/16/2019) Medications Medication Sig Dispensed Refills Start Date [...] 30 Tab 0 10/09/2019 Active nystatin (NYSTOP) 010714 UNIT/GM powder Apply topically to affected area 3 times a day. 60 g 1 10/16/2019 Active documented as of this encounter (statuses as of 10/16/2019) Active Problems Problem Noted Date Thrombocytopenia 05/02/2019 [...] as of this encounter (statuses as of 10/16/2019) Resolved Problems Problem Noted Date Resolved Date [...] pain 01/24/2012 01/17/2017 Genetic Sleep Disorder Research Other*[id number] 05/13/2011 04/07/2016 Obstructive sleep apnea 01/18/2011 12/27/19 [...] as of this encounter (statuses as of 10/16/2019) Immunizations Name Administration Dates Next Due HEP [...] as of this encounter Progress Notes * Ramez Piña RDCS - 10/16/2019 3:08 PM EST Echo completed today by body technician/painter per provider order. documented in this encounter Plan of Treatment Upcoming Encounters Date Type Specialty Care Team Description 10/29/2019 Nutrition Services Gastroenterology Melissa Omalley, [place] [address] [place] [id number] 11/25/2019 Office Visit Family Medicine [facility] [address] [facility] [address] 11/26/2019 Office Visit [facility]ology [facility]NP [address] [facility] [address] 01/09/2020 Office Visit Gynecology Obstetrics Aman Small, BOOM [address] [place] [phone] 09/03/2020 Imaging Radiology Health Maintenance Due Date [...] as of this encounter Visit Diagnoses Diagnosis Pulmonary vascular congestion- Primary Pulmonary congestion and hypostasis documented in this encounter Advance Directives Documents on File Type Date Recorded Patient Historic Sites Registrar Expl anation Advanced Directive service a kerri default Advanced Directive Advanced Directive Advanced Directive Advanced Directive Advanced Directive Advanced Directive Advanced Directive Advanced Directive
--- OUTSIDE RECORDS SUMMARY | 2023-05-10 22:59 | External Medical Summary | Summary of Care ---
Author Name Unknown Organization [facility] Address [place] [address] Care Team Providers Care Deboner Name Role Phone Rajwinder Carter DO Primary Care Provider [phone] Reason for Visit * Reason Comments Med Request Encounter Details Date Type Department Care Team Description 10/16/2019 Telephone [facility] [address] [place] [address] Rajwinder Carter DO [address] [place] [address] Med Request Allergies Active Allergy Reactions Severity Noted Date Comments Penicillins Rash 02/12/2008 documented as of this encounter (statuses as of 10/17/2019) Medications Medication Sig Dispensed Refills Start Date End Date Status CENTRUM SILVER PO TABS 1 tab daily 1 Tab 0 05/25/2012 Active vitamin c (ASCORBIC ACID) 500 MG Tablet Take 500 mg by mouth daily. 0 Active insulin glargine (LANTUS SOLOSTAR) 100 UNIT/ML SOPNIndications:Type 2 diabetes mellitus with hemoglobin A1c goal of less than 7.0% ([facility]) INJECT 24 UNITS UNDER THE SKIN [...] 30 Tab 0 10/09/2019 Active nystatin (NYSTOP) 152635 UNIT/GM powder Apply topically to affected area 3 times a day. 60 g 1 10/16/2019 Active documented as of this encounter (statuses as of 10/17/2019) Active Problems Problem Noted Date Thrombocytopenia 05/02/2019 [...] as of this encounter (statuses as of 10/17/2019) Resolved Problems Problem Noted Date Resolved Date [...] pain 01/24/2012 01/17/2017 Genetic Sleep Disorder Research Other*[id number] 05/13/2011 04/07/2016 Obstructive sleep apnea 01/18/2011 12/27/19 [...] as of this encounter (statuses as of 10/17/2019) Immunizations Name Administration Dates Next Due HEP [...] Telephone Encounter - Gael Doan OSA - 10/17/2019 2:35 PM EST Patient has been notified of the message. Patient has no further questions. Thanks. * Telephone Encounter - Michaelle Lindquist LPN - 10/16/2019 2:36 PM EST Detailed message left for pt and for pt to call the office with any questions or concerns. * Telephone Encounter - Susan Rosales RN - 10/16/2019 2:05 PM EST Attempted again to call patient voice mail not set up * Telephone Encounter - Susan Rosales RN - 10/16/2019 1:01 PM EST Called patient unable to leave message voice mail not set up yet * Telephone Encounter - Rajwinder Carter DO - 10/16/2019 12:59 PM EST Nystop powder sent to pharmacy. Please let pt know. * Telephone Encounter - Shruthi Carranza CPhT - 10/16/2019 12:47 PM EST Pt calling in [facility] has not filled in a while as had no need for it. [facility] is having a red raw area between legs from rubbing that hurts and looking to see if can have sent over Shaina calling to request refills for nystatin (NYSTOP) powder. Upon chart review, medication is listed as discontinued, with discontinuation reason as "Patient preference/discontinuation". Please advise if you wish to continue this therapy for the patient. Patient can be reached at [phone] forany further questions or concerns. Thank You, Shruthi Carranza CPhT Tree [employer] Nut Crops Farmer [facility] 10/16/2019, 12:48 PM documented in this encounter Plan of Treatment Upcoming Encounters Date Type Specialty Care Team Description 10/29/2019 Nutrition Services Gastroenterology Melissa Omalley RDN [address] [place] [address] 11/25/2019 Office Visit Family Medicine [facility] [address] [facility] [address] 11/26/2019 Office Visit Gastroenterology Lyssa Stout, ZAK [address] [facility] [place] [address] [phone] 01/09/2020 Office Visit Gynecology Obstetrics Aman Small, BOO [address] [place] [phone] 09/03/2020 Imaging Radiology Health Maintenance Due Date [...] as of this encounter Visit Diagnoses Diagnosis Candidal vulvovaginitis Candidiasis of vulva and vagina documented in this encounter Advance Directives Documents on File Type Date Recorded Patient Line And Frame Poler Expl anation Advanced Directive service a kerri default Advanced Directive Advanced Directive Advanced Directive Advanced Directive Advanced Directive Advanced Directive Advanced Directive Advanced Directive
--- OUTSIDE RECORDS SUMMARY | 2023-05-10 22:59 | External Medical Summary | Summary of Care ---
Author Name Unknown Organization [facility] Address [place] [address] Care Team Providers Care Cook House Supervisor Name Role Phone Rajwinder Carter DO Primary Care Provider [phone] Reason for Visit * Reason Comments Letter Requests Encounter Details Date Type Department Care Team Description 10/11/2019 Telephone [facility] [address] [place] [address] Rajwinder Carter DO [address] [place] [address] Letter Requests Allergies Active Allergy [...] pain 01/24/2012 01/17/2017 Genetic Sleep Disorder Research Other*[id number] 05/13/2011 04/07/2016 Obstructive sleep apnea 01/18/2011 12/27/19 [...] Miscellaneous Notes * Telephone Encounter - Caron Vargas LPN [...] [address] [place] [id number] 11/25/2019 Office Visit Family Medicine Rajwinder Carter DO [address] [place] [address] 11/26/2019 Office Visit Gastroenterology Lyssa Stout CRNP [address] [facility] [address] 01/09/2020 Office Visit Gynecology Obstetrics Aman Small CNM [facility] [place] [id number] 09/03/2020 Imaging Radiology Health Maintenance Due Date [...] Documents on File Type Date Recorded Patient Seismograph Shooter Expl anation Advanced Directive service a kerri default Advanced Directive Advanced Directive Advanced Directive Advanced Directive Advanced Directive Advanced Directive Advanced Directive Advanced Directive
--- OUTSIDE RECORDS SUMMARY | 2023-05-10 22:59 | External Medical Summary | Summary of Care ---
Author Name Unknown Organization [facility] Address [place] [address] Care Team Providers Care Examining Officer Name Role Phone Rajwinder Carter DO Primary Care Provider [phone] Reason for Visit * Reason Comments Advice Encounter Details Date Type Department Care Team Description 10/28/2019 Telephone [facility] [address] [place] [address] Rajwinder Carter DO [address] [place] [address] Advice Allergies Active Allergy Reactions [...] less than 7.0% ([facility]) INJECT 24 UNITS UNDER THE [...] less than 7.0% ([facility]) TAKE 1 TABLET BY MOUTH [...] 30 Tab 0 10/09/2019 Active nystatin (NYSTOP) 936555 UNIT/GM powder Apply topically to affected area [...] pain 01/24/2012 01/17/2017 Genetic Sleep Disorder Research Other*[id number] 05/13/2011 04/07/2016 Obstructive sleep apnea 01/18/2011 12/27/19 [...] Telephone Encounter - Susan Rosales RN - 10/29/2019 8:40 AM EST Pharmacy doing prior auth * Telephone Encounter - Shena Childress, [facility] - 10/28/2019 7:01 PM EST Pharmacy calling tp clarify which medication should be on have rx for ozempic, lantus, and trulicity. Please advise .cig documented in this encounter Plan of Treatment Upcoming Encounters Date Type Specialty Care Team Description 10/29/2019 Nutrition Services Gastroenterology Melissa Omalley, RDN [address] [place] [address] 11/25/2019 Office Visit Family Medicine [facility] [address] [facility] [address] 11/26/2019 Office Visit Gastroenterology Lyssa Stout CRNP [address] [facility] [place] [address] 01/09/2020 Office Visit Gynecology Obstetrics Aman Small, BOOM [address] [place] [address] 09/03/2020 Imaging Radiology Health [...] on File Type Date Recorded Patient Folder Machine Adjuster Expl anation Advanced Directive service a kerri default Advanced Directive Advanced Directive Advanced Directive Advanced Directive Advanced Directive Advanced Directive Advanced Directive Advanced Directive
--- OUTSIDE RECORDS SUMMARY | 2023-05-10 22:59 | External Medical Summary | Summary of Care ---
Author Name Unknown Organization [facility] Address [place] [address] Care Team Providers Care Refinery Operator Helper Crude Unit Name Role Phone Rajwinder Carter DO Primary Care Provider [phone] Reason for Visit * Reason Comments Letter Requests Encounter Details Date Type Department Care Team Description 10/11/2019 Telephone [facility] [address] [place] [address] Rajwinder Carter DO [address] [place] [address] Letter Requests Allergies Active Allergy [...] than 7.0% ([facility]) INJECT 24 UNITS UNDER THE SKIN [...] pain 01/24/2012 01/17/2017 Genetic Sleep Disorder Research Other*[id number] 05/13/2011 04/07/2016 Obstructive sleep apnea 01/18/2011 12/27/19 [...] Jovana Lambert RN - 10/11/2019 2:08 PM [facility] Home Care Delivery Letter asking for letter [...] [address] [place] [phone] 11/25/2019 Office Visit Family Medicine [facility]inder [facility] [address] [facility] [address] 11/26/2019 Office Visit [facility]astroenterology [facility]sa Stout CRNP [address] [facility] [address] 01/09/2020 Office Visit Gynecology Obstetrics Aman Small, BOOM [address] [place] [place] [address] 09/03/2020 Imaging Radiology Health Maintenance Due [...] Documents on File Type Date Recorded Patient Learning Disabilities Resource Teacher Expl anation Advanced Directive service a kerri default Advanced Directive Advanced Directive Advanced Directive Advanced Directive Advanced Directive Advanced Directive Advanced Directive Advanced Directive
--- OUTSIDE RECORDS SUMMARY | 2023-05-10 23:00 | External Medical Summary | Summary of Care ---
Author Name Unknown Organization [facility] Address [place] [address] Care Team Providers Care Director Of Customer Service Name Role Phone Rajwinder Lara DO Primary Care Provider [phone] Reason for Visit * Reason Comments eRx-Medication Refill Encounter Details Date Type Department Care Team Description 10/08/2019 Refill Formerly [facility] [address] [place] [address] Rajwinder Lara DO [address] [place] [address] [phone] Allergies Active Allergy Reactions Severity Noted Date Comments Penicillins Rash 02/12/2008 documented as of this encounter (statuses as of 10/09/2019) Medications Medication Sig Dispensed Refills Start Date End Date Status CENTRUM SILVER PO TABS 1 tab daily 1 Tab 0 2 Active vitamin c (ASCORBIC ACID) 500 MG Tablet Take 500 mg by mouth daily. 0 Active insulin glargine (LANTUS SOLOSTAR) 100 UNIT/ML SOPNIndications:Typ e 2 diabetes mellitus with hemoglobin A1c goal of less than 7.0% ([facility]) INJECT 24 UNITS UNDER THE SKIN AT BED TIME 15 mL 3 9 Active ferrous sulfate (FEOSOL) 325 (65 FE) MG Tablet Take 325 mg by mouth daily with breakfast. 0 Active furosemide (LASIX) 20 MG Tablet Take 20 mg by mouth daily. Every other day 0 Active Dulaglutide (TRULICITY) 1.5 MG/0.5ML SOPNIndications:Typ e 2 diabetes mellitus with hemoglobin A1c goal of less than 7.0% (HCC) Inject 1 syringeful once weekly 4 Pre-filled Pen Syringe Dosing Unit 5 9 Active gabapentin (NEURONTIN) 300 MG Capsule One pill in am, one midday, two in pm, 180 Cap 5 9 Active traZODone (DESYREL) 50 MG TabletIndications:S leep [...] 3 9 Active MetFORMIN (GLUCOPHAGE) 1000 MG TabletIndications:T [...] Pen Syringe Dosing Unit 5 0 Active cyclobenzaprine (FLEXERIL) 10 MG Tablet TAKE 1 TABLET BY MOUTH AT BEDTIME 30 Tab 0 0 Active cyclobenzaprine (FLEXERIL) 10 MG Tablet Take 1 Tab by mouth at bedtime. 30 Tab 0 0 10/09/19 20 Discontinued documented as of this encounter (statuses as of 10/09/2019) Active Problems Problem Noted Date Thrombocytopenia 05/02/2019 [...] as of this encounter (statuses as of 10/09/2019) Resolved Problems Problem Noted Date Resolved Date [...] pain 01/24/2012 01/17/2017 Genetic Sleep Disorder Research Other*[id number] 05/13/2011 04/07/2016 Obstructive sleep apnea 01/18/2011 12/27/19 [...] as of this encounter (statuses as of 10/09/2019) Immunizations Name Administration Dates Next Due HEP [...] Telephone Encounter - Rajwinder Lara DO - 10/09/2019 10:26 AM EST Signed Prescriptions: Disp Refills cyclobenzaprine (FLEXERIL) 10 MG Tablet 30 Tab 0 Sig: TAKE 1 TABLET BY MOUTH AT BEDTIME Authorizing Provider: RAJWINDER LARA * Telephone Encounter - Rajwinder Lara DO - 10/09/2019 10:26 AM EST Rx sent. * Telephone Encounter - Naheed Owens CPhT - 10/09/2019 8:18 AM EST Pending Prescriptions: Disp Refills cyclobenzaprine (FLEXERIL) 10 MG Tablet [P*30 Tab 0 Sig: TAKE 1 TABLET BY MOUTH AT BEDTIME * Telephone Encounter - Naheed Owens CPhT - 10/09/2019 8:17 AM EST Pending Prescriptions: Disp Refills cyclobenzaprine (FLEXERIL) 10 MG Tablet [*30 Tab 0 Sig: TAKE 1 TABLET BY MOUTH AT BEDTIME Last Office Visit: 10/02/2019 Next Office Visit: 11/25/2019 Scheduled Provider(s): Rajwinder Lara DO If no future appointments scheduled, and last appointment is greater than a year ago, please schedule patient for a follow-up appointment Last date the medication was ordered: 09/13/2019 Pharmacy: [facility] [id number] Is this request for a controlled [...] Encounters Date Type Specialty Care Team Description 10/16/2019 Cardiac Studies Cardiac Studies Gw, Director Loan [address] [place] [address] [phone] 10/29/2019 Nutrition Services Gastroenterology Melissa Omalley, SAMANTHA [address] [place] [address] [phone] 11/25/2019 Office Visit Family Medicine Rajwinder Lara DO [address] [facility], [place] [address] [phone] 11/26/2019 Office Visit Gastroenterology Lyssa Stout CRNP [address] [place] [address] [phone] 01/09/2020 Office Visit Gynecology Obstetrics Aman Small, MANAV [address] [place] [id number] 09/03/2020 Imaging Radiology Health Maintenance Due Date [...] on File Type Date Recorded Patient Inspector Metal Fabricating Expl anation Advanced Directive service a kerri default Advanced Directive Advanced Directive Advanced Directive Advanced Directive Advanced Directive Advanced Directive Advanced Directive Advanced Directive
--- OUTSIDE RECORDS SUMMARY | 2023-05-10 23:00 | External Medical Summary | Summary of Care ---
Author Name Unknown Organization [facility] Address [place] [address] Care Team Providers Care Shirt Turner Name Role Phone Rajwinder Carter DO Primary Care Provider [phone] Reason for Visit * Reason Comments Medication Problem Medication Pre-auth Encounter Details Date Type Department Care Team Description 10/07/2019 Telephone [facility] [address] [place] [address] aRjwinder Carter DO [address] [place] [address] Medication Problem; Medication Pre-auth Allergies Active Allergy Reactions Severity Noted Date Comments Penicillins Rash 02/12/2008 documented as of this encounter (statuses as of 10/14/2019) Medications Medication Sig Dispensed Refills Start Date [...] ([facility]) Inject 1 syringeful once weekly 4 Pre-filled [...] as of this encounter (statuses as of 10/14/2019) Active Problems Problem Noted Date Thrombocytopenia 05/02/2019 [...] as of this encounter (statuses as of 10/14/2019) Resolved Problems Problem Noted Date Resolved Date [...] pain 01/24/2012 01/17/2017 Genetic Sleep Disorder Research Other*[id number] 05/13/2011 04/07/2016 Obstructive sleep apnea 01/18/2011 12/27/19 [...] as of this encounter (statuses as of 10/14/2019) Immunizations Name Administration Dates Next Due HEP [...] Miscellaneous Notes * Telephone Encounter - Jarett Webber, [facility] - 10/14/2019 3:25 PM EST Initiated PA via promptPA for trulicity as this is the preferred GLP-1 on medicaid PDL, however it still requires a PA. Script is $25 on pt's primary. Will await PA response on secondary. ID: [id number]. Thanks, Jarett Webber, PharmD Clinical Pharmacist [facility] [phone] 10/14/2019,3:25 PM * Telephone Encounter - Jarett Webber [facility] - 10/14/2019 1:58 PM EST Called pharmacy for more info, Rx is $25 on primary ins ([id number]), secondary (processing info provided by pharmacy) requires a PA. * Telephone Encounter - Naheed Owens CPhT - 10/11/2019 2:05 PM EST Pharmacy calling to inform doctor that the pt's insurance will not pay for this medication without a completed prior authorization. . Please complete with the following information: Patient name: Shaina Bustos ID number: [id number] BIN number: [id number] PCN number: [id number] Group number: [id number] Subscriber name: Shaina Bustos Medication: Semaglutide, 1 MG/DOSE, (OZEMPIC, 1 MG/DOSE,) 2 MG/1.5ML SOPN Reason for PA: non formulary Pharmacy: [facility] plan and phone number: [facility], Formulary alternatives: n/a List of medications pt has tried and failed: n/a Thanks, Charleen Owens [facility] 10/11/2019,2:05 PM * Telephone Encounter - Susan Rosales RN - 10/08/2019 7:48 AM EST Left message for patient to return call to office see message below * Telephone Encounter - Indira Hudson [facility] - 10/07/2019 5:01 PM EST Yes, the Ozempic will be different than the Trulicity. Please let patient know that she should either discuss with pharmacist when she picks it up to make sure comfortable using it or can call me with any questions once she has it and I can walk her through the steps of administration. Indira Hudson RPh, Pharm D, BCACP Clinical Pharmacist 10/07/19 5:02 PM * Telephone Encounter - Rajwinder Carter DO - 10/07/2019 4:42 PM EST Rx sent. Please let pt know that this will be different. Indira, do you feel she will need new teaching for Ozempic? * Telephone Encounter - Kiesha Schmitt LPN - 10/07/2019 3:49 PM EST Trulicity is not paid by insurance, will you send Ozempic per Indira 1.0 mg should be ordered documented in this encounter Plan of Treatment Upcoming Encounters Date Type Specialty Care Team Description 10/16/2019 Cardiac Studies Cardiac Studies Gw, Sounding Device Operator [address] [place] [address] 10/29/2019 Nutrition Services Gastroenterology Melissa Omalley RDN [address] [place] [id number] 11/25/2019 Office Visit Family Medicine [facility]inder [facility] [address] [facility] [id number] 11/26/2019 Office Visit Gastroenterology Lyssa Stout CRNP [address] [place] [address] 01/09/2020 Office Visit Gynecology Obstetrics Aman Small, MANAV [address] [place] [id number] 09/03/2020 Imaging Radiology Health Maintenance Due Date [...] on File Type Date Recorded Patient Air Pollution Analyst Expl anation Advanced Directive service a kerri default Advanced Directive Advanced Directive Advanced Directive Advanced Directive Advanced Directive Advanced Directive Advanced Directive Advanced Directive
--- OUTSIDE RECORDS SUMMARY | 2023-05-10 23:00 | External Medical Summary | Summary of Care ---
Author Name Unknown Organization [facility] Address [place] [address] Care Team Providers Care Mixing Machine Operator Name Role Phone Rajwinder Carter DO Primary Care Provider [phone] Reason for Visit * Reason Comments Med Request Encounter Details Date Type Department Care Team Description 10/16/[address] [facility] [address] [place] [address] Rajwinder Carter DO [address] [place] [address] Med Request Allergies Active Allergy [...] 30 Tab 0 10/09/2019 Active nystatin (NYSTOP) 154503 UNIT/GM powder Apply topically to affected area [...] pain 01/24/2012 01/17/2017 Genetic Sleep Disorder Research Other*[id number] 05/13/2011 04/07/2016 Obstructive sleep apnea 01/18/2011 12/27/19 [...] 10/16/2019 12:47 PM EST [facility] a while as had no need for it. [facility] is having a red raw area between legs from rubbing that hurts and looking to see if can have sent over Shaina calling to request refills for nystatin (NYSTOP) powder. Upon chart review, medication is listed as discontinued, with discontinuation reason as "Patient preference/discontinuation". Please advise if you wish to continue this therapy for the patient. Patient can be reached at [phone] forany further questions or concerns. Thank You, Shruthi Carranza CPhT Cosmetology Instructor [employer] 10/16/2019, 12:48 PM documented in this encounter Plan of Treatment Upcoming Encounters Date Type Specialty Care Team Description 10/16/2019 Cardiac Studies Cardiac Studies Gw, Education Trainer [address] [place] [address] [phone] 10/29/2019 Nutrition Services Gastroenterology Melissa Omalley RDN [address] [place] [address] [phone] 11/25/2019 Office Visit Family Medicine Rajwinder Carter DO [address] [facility] [place] [address] [phone] 11/26/2019 Office Visit Gastroenterology Lyssa Stout CRNP [address] [place] [address] [phone] 01/09/2020 Office Visit Gynecology Obstetrics Aman Small, MANAV [address] [facility] [place] [address] 09/03/2020 Imaging Radiology Health [...] Documents on File Type Date Recorded Patient Brush Sander Expl anation Advanced Directive service a kerri default Advanced Directive Advanced Directive Advanced Directive Advanced Directive Advanced Directive Advanced Directive Advanced Directive Advanced Directive
--- OUTSIDE RECORDS SUMMARY | 2023-05-10 23:00 | External Medical Summary | Summary of Care ---
Author Name Unknown Organization [facility] Address [place] [address] Care Team Providers Care Outbound Sales Representative Name Role Phone Rajwinder Carter DO Primary Care Provider [phone] Reason for Referral * Precert (Routine) Status Reason Specialty Diagnoses / Procedures Referred By Contact Referred To Contact Pending Review Precert Cardiac Studies Diagnoses Pulmonary vascular congestion Procedures ECHO, COMPLETE (2D), TRANS-THORACIC Rajwinder Carter DO [address] [place] [address] Reason for Visit * Reason Comments Acute Encounter Details Date Type Department Care Team Description 10/02/2019 Office Visit [facility] [address] [place] [address] Rajwinder Carter DO [address] [place] [address] Pulmonary vascular congestion* Allergies Active Allergy Reactions Severity Noted Date Comments Penicillins Rash 02/12/2008 documented as of this encounter (statuses as of 10/02/2019) Medications Medication Sig Dispensed Refills Start Date [...] DAILY 30 Tab 5 06/06/2019 Active Additional information Patient taking differently: TAKE 1 TABLET BY [...] FoR EDEMA 30 Tab 4 09/13/2019 Active cyclobenzaprine (FLEXERIL) 10 MG Tablet Take 1 Tab by mouth at bedtime. 30 Tab 0 09/13/2019 Active oxybutynin (DITROPAN) 5 MG Tablet [...] for Wheezing. 120 Vial 11 10/02/2019 Active documented as of this encounter (statuses as of 10/02/2019) Active Problems Problem Noted Date Thrombocytopenia 05/02/2019 [...] as of this encounter (statuses as of 10/02/2019) Resolved Problems Problem Noted Date Resolved Date [...] pain 01/24/2012 01/17/2017 Genetic Sleep Disorder Research Other*[id number] 05/13/2011 04/07/2016 Obstructive sleep apnea 01/18/2011 12/27/19 [...] as of this encounter (statuses as of 10/02/2019) Immunizations Name Administration Dates Next Due HEP [...] Progress Notes * Rajwinder Carter DO - 10/02/2019 11:27 AM EST SUBJECTIVE: Chief Complaint Patient presents with Acute HPI: Shaina Bustos is a 64 year old female who presents today for recheck. Pt was seen at [facility] and had a CXR done that [...] Chronic pain syndrome G89.4 MEDICATION USE AGREEMENT [id number] History of Clostridium difficile colitis Z86.19 Cirrhosis [...] [facility]) F33.41 Impaired mobility and ADLs Z74.09 Generalized weakness R53.1 Gastroesophageal reflux disease K21.9 History of kidney stones Z87.442 History of Achilles tendon repair Z98.890 History of delivery Z98.891 History of MRSA infection Z86.14 History of migraine Z86.69 Anemia D64.9 Fibromyalgia M79.7 Achilles tendinitis, right leg M76.61 DNR (do not resuscitate) Z66 Thrombocytopenia ([facility]) D69.6 Current Outpatient Medications Medication Sig [...] (RECTUM) 10/04/2016 normal bx, repeat 10 yrs/[facility] DENTAL SURGERY PROCEDURE NEC wisdom teeth x 4 DILATION AND CURETTAGE (D&C) EGD, FLEXIBLE, DIAGNOSTIC 10/04/2016 gastritis/[facility] EGD, FLEXIBLE, DIAGNOSTIC 01/11/2018 eso varices, retained food, repeat 1 yr/[facility] PELVIS/HIP JOINT SURGERY NEC teenager aid [...] Repeat CXR after this. ED with emergencies. Follow-up: As needed and for routine care. Rajwinder Carter DO documented in this encounter Nursing Notes * Jovana Lambert, UMA - 10/02/2019 11:10 AM EST Needs Albuterol Nebulizer meds ordered and asking about the fluid around her heart documented in this encounter Plan of Treatment Upcoming Encounters Date Type Specialty Care Team Description 10/11/2019 Cardiac Studies Cardiac Studies Gw, Production Control Supervisor [address] [facility] [place] [address] [phone] 10/29/2019 Nutrition Services Gastroenterology Melissa Omalley, RDN [address] [place] [address] [phone] 11/25/2019 Office Visit Family Medicine Rajwinder Carter DO [address] [facility] [place] [id number] 11/26/2019 Office Visit Gastroenterology Lyssa Stout CRNP [address] [facility] [place] [phone] 01/09/2020 Office Visit Gynecology Obstetrics Aman Small, BOOM [address] [place] [id number] 09/03/2020 Imaging Radiology Scheduled Orders Name Type Priority Associated Diagnoses Orde r Schedule ECHO, COMPLETE (2D), TRANS-THORACIC Echocardiology Routine Pulmonary vascular congestion Expected: 10/02/2019, Expires: 11/02/2020 XR CHEST 2 VIEWS Medical Imaging Routine [...] on File Type Date Recorded Patient Finance Effectiveness Manager Expl anation Advanced Directive service a kerri default Advanced Directive Advanced Directive Advanced Directive Advanced Directive Advanced Directive Advanced Directive Advanced Directive Advanced Directive"
--- OUTSIDE RECORDS SUMMARY | 2023-05-10 23:00 | External Medical Summary | Summary of Care ---
Author Name Unknown Organization [facility] Address [place] [address] Care Team Providers Care Jewel Inserter Name Role Phone Rajwinder Carter DO Primary Care Provider [phone] Reason for Visit * Reason Comments Med Request Encounter Details Date Type Department Care Team Description 10/16/2019 Telephone [facility] [address] [place] [address] Rajwinder Carter DO [address] [place] [address] Med Request Allergies Active Allergy [...] 30 Tab 0 10/09/2019 Active nystatin (NYSTOP) 203716 UNIT/GM powder Apply topically to affected area [...] pain 01/24/2012 01/17/2017 Genetic Sleep Disorder Research Other*[id number] 05/13/2011 04/07/2016 Obstructive sleep apnea 01/18/2011 12/27/19 [...] 10/16/2019 12:47 PM EST Pt calling in [facility] has not filled in a while as [...] the patient. Patient can be reached at [phone] forany further questions or concerns. Thank You, Shruthi Carranza CPhT Floral Designer [email or web address] 10/16/2019, 12:48 PM documented in this encounter Plan of Treatment Upcoming Encounters Date Type Specialty Care Team Description 10/29/2019 Nutrition Services Gastroenterology Melissa Omalley RDN [address] [place] [address] [phone] 11/25/2019 Office Visit Family Medicine Rajwinder Carter DO [address] [facility] [place] [id number] 11/26/2019 Office Visit Gastroenterology Lyssa Stout CRNP [address] [facility] [place] [address] [phone] 01/09/2020 Office Visit Gynecology Obstetrics Aman Small, MANAV [address] [place] [address] [phone] 09/03/2020 Imaging Radiology Health Maintenance Due Date [...] on File Type Date Recorded Patient Director Veterinary Expl anation Advanced Directive service a kerri default Advanced Directive Advanced Directive Advanced Directive Advanced Directive Advanced Directive Advanced Directive Advanced Directive Advanced Directive
--- OUTSIDE RECORDS SUMMARY | 2023-05-10 23:00 | External Medical Summary | Summary of Care ---
Author Name Unknown Organization [facility] Address [place] [address] Care Team Providers Care Pricing Strategist Name Role Phone JohnbrianRajwinder thacker Primary Care Provider [phone] Reason for Visit * Reason Comments Test Results Imaging Study cxr- pulmonar y congestion Encounter Details Date Type Department Care Team Description 09/27/2019 Telephone Family Practice [facility] [address] [place] [address] Janett Cohn PA-C [address] [facility] [place] [id number] Test Results Imaging Study (cxr- pulmonary... Allergies Active Allergy Reactions Severity Noted Date Comments Penicillins Rash 02/12/2008 documented as of this encounter (statuses as of 09/30/2019) Medications Medication Sig Dispensed Refills Start Date End Date Status CENTRUM SILVER PO TABS 1 tab daily 1 Tab 0 05/25/2012 Active vitamin c (ASCORBIC ACID) 500 MG Tablet Take 500 mg by mouth daily. 0 Active insulin glargine (LANTUS SOLOSTAR) 100 UNIT/ML SOPNIndications:Type 2 diabetes mellitus with hemoglobin A1c goal of less than 7.0% ([facility]) INJECT 24 UNITS UNDER THE SKIN AT [...] [facility]) Inject 1 syringeful once weekly 4 Pre-filled [...] of less than 7.0% ([facility]) TAKE 1 TABLET BY MOUTH TWICE DAILY [...] as of this encounter (statuses as of 09/30/2019) Active Problems Problem Noted Date Thrombocytopenia 05/02/2019 [...] as of this encounter (statuses as of 09/30/2019) Resolved Problems Problem Noted Date Resolved Date [...] pain 01/24/2012 01/17/2017 Genetic Sleep Disorder Research Other*[id number] 05/13/2011 04/07/2016 Obstructive sleep apnea 01/18/2011 12/27/19 [...] as of this encounter (statuses as of 09/30/2019) Immunizations Name Administration Dates Next Due HEP [...] Telephone Encounter - Gael Doan OSA - 09/30/2019 2:53 PM EST Patient returning call, scheduled patient for a follow up with Dr. Carter for this 10/04 - per previous message. Thanks. * Telephone Encounter - Talita Caballero OSA - 09/30/2019 12:52 PM EST LMOM 09/30 If pt reutnrs call please place on Provider schedule on same day if need be for pt to be seen in 1 week THanks * Telephone Encounter - Dulce Mckeon LPN - 09/28/2019 8:26 AM EST Called patient. Informed patient of note below. Patient understands and will comply. Please call patient to schedule follow up with PCP. * Telephone Encounter - Janett Cohn PA-C - 09/27/2019 5:50 PM EST Please call patient. CXR showing signs concerning for fluid in lung, this is concerning for heart failure however cannot be confirmed on CXR alone. This is likely cause of cough, SOB. Antibiotics will not be beneficial for this at this time. The recommendation is to restart lasix 20 mg daily (if taking 20 mg already, then recommend increasing to 40 mg daily x 7 days). Recheck with pcp in 1 week. She will likely need labs and cardiac echo for heart failure workup. CC Dr. Carter documented in this encounter Plan of Treatment Upcoming Encounters Date Type Specialty Care Team Description 10/04/2019 Office Visit Family Medicine Rajwinder Carter DO [address] [place] [address] 10/29/2019 Nutrition Services Gastroenterology Melissa Omalley RDN [address] [facility] [address] [place] [address] [phone] 11/25/2019 Office Visit Family Rajwinder Lopez DO [address] [place] [address] 11/26/2019 Office Visit Gastroenterology Lyssa Stout CRNP [address] [facility] [place] [address] [phone] 01/09/2020 Office Visit Gynecology Obstetrics Aman Small CNM [address] [place] [phone] 09/03/2020 Imaging Radiology Health Maintenance Due Date [...] , 05/16/2018, 07/10/2017, Additional history exists MENINGOCOCCAL (MENACTRA) Aged Out No longer eligible based on patient's age to complete this topic documented as of this encounter Implants Not on filedocumented as of this encounter Advance Directives Documents on File Type Date Recorded Patient Sound System Installer Expl anation Advanced Directive service a kerri default Advanced Directive Advanced Directive Advanced Directive Advanced Directive Advanced Directive Advanced Directive Advanced Directive Advanced Directive
--- OUTSIDE RECORDS SUMMARY | 2023-05-10 23:00 | External Medical Summary | Summary of Care ---
Author Name Unknown Organization [facility] Address [place] [address] Care Team Providers Care Science Professor Name Role Phone Rajwinder Carter DO Primary Care Provider [phone] Reason for Visit * Reason Comments Med Request Encounter Details Date Type Department Care Team Description 10/16/2019 Telephone [facility] [address] [place] [address] Rajwinder Carter DO [address] [place] [address] Med Request Allergies Active Allergy [...] 7.0% ([facility]) INJECT 24 UNITS UNDER THE SKIN AT [...] 7.0% ([facility]) TAKE 1 TABLET BY MOUTH TWICE DAILY [...] 30 Tab 0 10/09/2019 Active nystatin (NYSTOP) 679320 UNIT/GM powder Apply topically to affected area [...] pain 01/24/2012 01/17/2017 Genetic Sleep Disorder Research Other*[id number] 05/13/2011 04/07/2016 Obstructive sleep apnea 01/18/2011 12/27/19 [...] 10/16/2019 12:47 PM EST Pt calling in [facility] has not filled in a while as had no need for it. [facility] is having a red raw area between legs from rubbing that hurts and looking to see if can have sent over Shaina calling to request refills for nystatin (NYSTOP) powder. Upon chart review, medication is listed as discontinued, with discontinuation reason as "Patient preference/discontinuation". Please advise if you wish to continue this therapy for the patient. Patient can be reached at [phone] forany further questions or concerns. Thank You, Shruthi Carranza CPhT Nurse Substance Abuse [facility] 10/16/2019, 12:48 PM documented in this encounter Plan of Treatment Upcoming Encounters Date Type Specialty Care Team Description 10/16/2019 Cardiac Studies Cardiac Studies Gw, Information Security Officer [address] [place] [address] [phone] 10/29/2019 Nutrition Services Gastroenterology Melissa Omalley RDN [address] [place] [address] [phone] 11/25/2019 Office Visit Family Medicine Rajwinder Carter DO [address] [place], [place] [address] [address] [phone] 11/26/2019 Office Visit Gastroenterology Lyssa Stout CRNP [address] [place] [address] [phone] 01/09/2020 Office Visit Gynecology Obstetrics Aman Small, BOO [address] [place] [address] [phone] 09/03/2020 Imaging Radiology Health Maintenance Due Date [...] Documents on File Type Date Recorded Patient Linotype Machinist Expl anation Advanced Directive service a kerri default Advanced Directive Advanced Directive Advanced Directive Advanced Directive Advanced Directive Advanced Directive Advanced Directive Advanced Directive
--- OUTSIDE RECORDS SUMMARY | 2023-05-10 23:01 | External Medical Summary | Summary of Care ---
Author Name Unknown Organization [facility] Address [place] [address] Care Team Providers Care Leather Products Supervisor Name Role Phone JohnbrianRajwinder thacker Primary Care Provider [phone] Reason for Visit * Reason Comments Pre Authorization Request Pantoprazole Encounter Details Date Type Department Care Team Description 09/19/2019 Telephone Gastroenterology, [facility] [address] [facility] [place] [address] Lyssa Stout CRNP [address] [facility] [place] [address] [phone] Pre Authorization Request (Pantoprazole ) Allergies Active Allergy Reactions Severity Noted Date Comments Penicillins Rash 02/12/2008 documented as of this encounter (statuses as of 09/25/2019) Medications Medication Sig Dispensed Refills Start Date End Date Status CENTRUM SILVER PO TABS 1 tab daily 1 Tab 0 05/25/2012 Active vitamin c (ASCORBIC ACID) 500 MG Tablet Take 500 mg by mouth daily. 0 Active insulin glargine (LANTUS SOLOSTAR) 100 UNIT/ML SOPNIndications:Type 2 diabetes mellitus with hemoglobin A1c goal of less than 7.0% ([facility]) INJECT 24 UNITS UNDER THE [...] than 7.0% ([facility]) TAKE 1 TABLET BY MOUTH [...] as of this encounter (statuses as of 09/25/2019) Active Problems Problem Noted Date Thrombocytopenia 05/02/2019 [...] as of this encounter (statuses as of 09/25/2019) Resolved Problems Problem Noted Date Resolved Date [...] pain 01/24/2012 01/17/2017 Genetic Sleep Disorder Research Other*[id number] 05/13/2011 04/07/2016 Obstructive sleep apnea 01/18/2011 12/27/19 [...] as of this encounter (statuses as of 09/25/2019) Immunizations Name Administration Dates Next Due HEP [...] Miscellaneous Notes * Telephone Encounter - Liz Hancock RN - 09/25/2019 9:19 AM EST Spoke with Yisel at [facility] at . Pantoprazole has been approved, good from 08/21/19-09/19/2020. Pharmacy contacted and aware. * Telephone Encounter - Liz Hancock RN - 09/19/2019 3:26 PM EST Fax received from [facility] for prior authorization request for Pantoprazole. Form completed and faxed to . Awaiting determination. documented in this encounter Plan of Treatment Upcoming Encounters Date Type Specialty Care Team Description 10/29/2019 Nutrition Services Gastroenterology Melissa Omalley, RDN [address] [place] [address] 11/25/2019 Office Visit Family Medicine Rajwinder Carter, DO [address] [facility], [place] [address] 11/26/2019 Office Visit Gastroenterology Lyssa Stout CRNP [address] [facility] [place] [address] 12/31/2019 Office Visit Gynecology Obstetrics Rosaura Perez CNM [address] [facility] [place] [address] 09/03/2020 Imaging Radiology Health Maintenance Due [...] Documents on File Type Date Recorded Patient Co Founder Expl anation Advanced Directive service a kerri default Advanced Directive Advanced Directive Advanced Directive Advanced Directive Advanced Directive Advanced Directive Advanced Directive Advanced Directive
--- OUTSIDE RECORDS SUMMARY | 2023-05-10 23:01 | External Medical Summary | Summary of Care ---
Author Name Unknown Organization [facility] Address [place] [address] Care Team Providers Care Tumbling And Rolling Supervisor Name Role Phone Rajwinder Carter Primary Care Provider [phone] Reason for Visit * Reason Comments Cough Productive cough not ed for the past 5-6 months. Occasional chills. Encounter Details Date Type Department Care Team Description 09/27/2019 Office Visit Family [facility] [address] [facility] [place] [address] Janett Cohn PA-C [facility] [place] [address] [phone] Wheezing*; Cough; SOB (shortness of breath) Allergies Active Allergy Reactions Severity Noted Date Comments Penicillins Rash 02/12/2008 documented as of this encounter (statuses as of 09/27/2019) Medications Medication Sig Dispensed Refills Start Date End Date Status CENTRUM SILVER PO TABS 1 tab daily 1 Tab 0 05/25/2012 Active vitamin c (ASCORBIC ACID) 500 MG Tablet Take 500 mg by mouth daily. 0 Active insulin glargine (LANTUS SOLOSTAR) 100 UNIT/ML SOPNIndications:Type 2 diabetes mellitus with hemoglobin A1c goal of less than 7.0% ([facility]) INJECT 24 UNITS UNDER THE SKIN AT [...] mouth daily. 60 Tab 5 09/13/2019 Active Hospital, Clinic, or Other Facility Administered Medication Ordered Dose Route Frequency Start Date End Date Status albuterol sulfate (PROVENTIL) (2.5 MG/3ML) 0.083% inhalation solution 2.5 mgIndications:Wheezing 2.5 mg NEBULIZER ONCE 09/27/2019 09/27/2019 En ded documented as of this encounter (statuses as of 09/27/2019) Active Problems Problem Noted Date Thrombocytopenia 05/02/2019 [...] as of this encounter (statuses as of 09/27/2019) Resolved Problems Problem Noted Date Resolved Date [...] pain 01/24/2012 01/17/2017 Genetic Sleep Disorder Research Other*[id number] 05/13/2011 04/07/2016 Obstructive sleep apnea 01/18/2011 12/27/19 [...] as of this encounter (statuses as of 09/27/2019) Immunizations Name Administration Dates Next Due HEP [...] Reading Time Taken Comments Blood Pressure 124/64 09/27/2019 1:12 PM EST Pulse 70 09/27/2019 1:12 PM EST Temperature 36.8 C (98.3 F) 09/27/2019 1:12 PM ES T Respiratory Rate 20 09/27/2019 1:12 PM EST Oxygen Saturation 93% 09/27/2019 2:03 PM EST Inhaled Oxygen Concentration - - Weight - - Height - - Body Mass Index - - documented in this encounter Progress Notes * Janett Cohn PA-C - 09/27/2019 1:26 PM EST Shaina Bustos is a 64 year old year old female who presents for evaluation of cough and SOB. Nursing Notes: Tracie Huizar, MINER 09/27/19 1316 Signed The patient has been properly identified by confirmation of name and date of . Chief Complaint Patient presents with Cough Productive cough noted for the past 5-6 months. Occasional chills. HPI: Pt having productive cough for months now. Only sometimes able to bring mucus up. Laying down feels SOB. some wheezing. She does have asthma. She has an albuterol inhaler, doesn't help. She has chronic LEedema, unchanged recently. [place] feverish about 1.5 weeks ago. Had vomiting at that time with diarrhea. But that improved. Having sinus congestion and some drainage. REVIEW OF SYSTEMS: See HPI for pertinent [...] (RECTUM) 10/04/2016 normal bx, repeat 10 yrs/[facility] D[facility] SURG[facility] PROCEDURE NEC wisdom teeth x 4 DILATION AND CURETTAGE (D&C) EGD, FLEXIBLE, DIAGNOSTIC 10/04/2016 gastritis/[facility] EGD, FLEXIBLE, DIAGNOSTIC 01/11/2018 eso varices, retained food, repeat 1 yr/[facility] PELVIS/HIP JOINT SURGERY NEC teenager aid in walking REPAIR/GRAFT ACHILLES TENDON age 40 aid in walking Social History Tobacco Use Smoking status: Never Smoker Smokeless tobacco: Never Used Substance Use Topics Alcohol use: No Patient Active Problem List Diagnosis Code Edema R60.9 Venous insufficiency I87.2 Spinal stenosis of lumbar region without neurogenic claudication M48.061 Cerebral palsy ([facility]) G80.9 HTN, goal below 140/90 I10 Chronic rhinitis J31.0 NG (nonalcoholic steatohepatitis) K75.81 Venous stasis dermatitis of both lower extremities I87.2 DDD (degenerative disc disease), lumbar M51.36 Intermittent asthma with reliever use up to twice per week J45.20 Primary osteoarthritis of right knee M17.11 Lymphedema I89.0 Type 2 diabetes mellitus with hemoglobin A1c goal of less than 7.0% ([facility]) E11.9 Vitamin D deficiency E55.9 Restrictive lung disease J98.4 Obesity, morbid (more than 100 lbs over ideal weight or BMI > 40) ([facility]) E66.01 Dyslipidemia, goal LDL below 70 E78.5 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 R39.81 Acquired hypothyroidism E03.9 Chronic pain syndrome G89.4 MEDICATION USE AGREEMENT [id number] History of Clostridium difficile colitis Z86.19 Cirrhosis of liver ([facility]) K74.60 THAD on CPAP G47.33, Z99.89 Wheelchair dependent Z99.3 History of recent fall Z91.81 Pancytopenia ([facility]) D61.818 Ambulatory dysfunction R26.2 Fall W19.XXXA Sprain of right ankle S93.401A DM type 2 with diabetic peripheral neuropathy ([facility]) E11.42 Insomnia G47.00 Recurrent major depressive disorder, in partial remission ([facility]) F33.41 Impaired mobility and ADLs Z74.09 Generalized weakness R53.1 Gastroesophageal reflux disease K21.9 History of kidney stones Z87.442 History of Achilles tendon repair Z98.890 History of delivery Z98.891 History of MRSA infection Z86.14 History of migraine Z86.69 Anemia D64.9 Fibromyalgia M79.7 Achilles tendinitis, right leg M76.61 DNR (do not resuscitate) Z66 Thrombocytopenia ([facility]) D69.6 Review of patient's allergies indicates: Allergen Reactions [...] BY MOUTH AT BEDTIME 30 Tab 4 Dulaglutide (TRULICITY) 1.5 MG/0.5ML SOPN Inject 1 [...] 1 tab daily 1 Tab 0 Nursing Notes and Vital Signs reviewed. PHYSICAL EXAM: VITALS: BP 124/64 | Pulse 70 | Temp (Src) 98.3 (Tympanic) | Resp 20 | Wt (0.000kg) GENERAL: Patient is alert, sitting comfortably in electric scooter. HEAD: Normocephalic, no masses, lesions, or other abnormalities noted. EYE EXAM: Normal conjunctiva, PERRL and EOM's intact. EARS: External ears normal, canals clear, hearing grossly intact. TM's Pear[place] sky with good light reflex. NOSE: No deformity. Some sinus tenderness to palpation over sinuses. OROPHARYNX: lips, tongue and throat normal. NECK: Supple, good ROM, trachea midline. No adenopathy noted Chest: normal chest symmetry and expansion, normal AP diameter. LUNGS: Some decreased breath sounds with some mild expiratory wheeze at upper lobes. No rhonchi. Tight sounding. HEART: RRR, no murmurs EXTREMITIES: chronic statis dermatitis skin changes at LE bilaterally. +some LE edema noted. Assessment: Wheezing (Primary) - NEBULIZER TREATMENTS - albuterol sulfate (PROVENTIL) (2.5 MG/3ML) 0.083% inhalation solution 2.5 mg Cough - XR CHEST 2 VIEWS SOB (shortness of breath) - XR CHEST 2 VIEWS Post-neb treatment pt feels some mild improvement. She has increased breath sounds bilaterally. Some residual decreased breath sounds at right lung base. Will get CXR. Discussed will consider abx butneeding CXR first. Advised to use her albuterol as directed. Will likely need short-term follow up with PCP. Janett Cohn PA-C Family [address] [place] [address] documented in this encounter Nursing Notes * Tracie Huizar LPN - 09/27/2019 1:42 PM EST Pre-Administration Time Out Procedure Performed: Yes Patient Identified (Ask Name/Date of ): Yes Does the patient have a fever greater than 101 degrees today? No Patient allergic to latex? No Has the patient ever fainted after receiving an injection? No VFC Stock: No Received Albuterol 0.083% 2.5mg/3 ml via nebulizer. Verified Side and Site: Yes Verified Shot(s) with Parent(s)/Patient: Yes * Tracie Huizar LPN - 09/27/2019 1:10 PM EST The patient has been properly identified by confirmation of name and date of . Chief Complaint Patient presents with Cough Productive cough noted for the past 5-6 months. Occasional chills. documented in this encounter Plan of Treatment Upcoming Encounters Date Type Specialty Care Team Description 10/29/2019 Nutrition Services Gastroenterology Melissa Omalley RDN [address] [facility] [place] [id number] 11/25/2019 Office Visit Family Medicine Rajwinder Carter, DO [address], [place] [phone] 11/26/2019 Office Visit Gastroenterology Lyssa Stout CRNP [address] [facility] [place] [address] [phone] 12/31/2019 Office Visit Gynecology Obstetrics Rosaura Perez CNM [address] [facility] [place] [address] 09/03/2020 Imaging Radiology Scheduled Orders Name Type Priority Associated Diagnoses Orde r Schedule NEBULIZER TREATMENTS Procedures Routine Wheezing Ordered: 09/27/2019 Health Maintenance Due Date Last Done Comments [...] Diagnosis Comments XR CHEST 2 VIEWS STAT 09/27/2019 2:29 PM EST Cough SOB (shortness of breath) documented in this encounter Results * XR CHEST 2 VIEWS (09/27/2019 2:29 PM EST) Specimen Impressions Performed At IMPRESSION Pulmonary vascular congestion. [facility] Narrative Performed At EXAM XR CHEST 2 VIEWS - 09/27/2019 2:29 pm HISTORY "SOB with laying down, productive cough x months." TECHNIQUE Frontal and lateral views of the chest were obtained. COMPARISON CHEST 2 VIEWS dated 12/19/2017 FINDINGS There is mild cardiomegaly and pulmonary vascular congestion. No pleural effusion or pneumothorax. [facility] Procedure Note Interface, Rad In - 09/27/2019 2:54 PM EST EXAM XR CHEST 2 VIEWS - 09/27/2019 2:29 pm HISTORY "SOB with laying down, productive cough x months." TECHNIQUE Frontal and lateral views of the chest were obtained. COMPARISON CHEST 2 VIEWS dated 12/19/2017 FINDINGS There is mild cardiomegaly and pulmonary vascular congestion. No pleuraleffusion or pneumothorax. IMPRESSION IMPRESSION Pulmonary vascular congestion. Performing Organization Address City/State/[place] e Phone Number [facility] documented in this encounter Visit Diagnoses Diagnosis Wheezing- Primary Cough SOB (shortness of breath) Shortness of breath documented in this encounter Administered Medications Inactive Administered Medications - up to 3 most recent administrations Medication Order MAR Action Action Date Dose Rate Site albuterol sulfate (PROVENTIL) (2.5 MG/3ML) 0.083% inhalation solution 2.5 mg 2.5 mg, Nebulizer, ONCE, Mon09/27/19 at 1415, For 1 dose Given 09/27/2019 1:40 PM EST 2.5 mg documented in this encounter Advance Directives Documents on File Type Date Recorded Patient Route Jumper Expl anation Advanced Directive service a kerri default Advanced Directive Advanced Directive Advanced Directive Advanced Directive Advanced Directive Advanced Directive Advanced Directive Advanced Directive
--- OUTSIDE RECORDS SUMMARY | 2023-05-10 23:01 | External Medical Summary | Summary of Care ---
Author Name Unknown Organization [facility] Address [place] [address] Care Team Providers Care Needle Maker Name Role Phone Rajwinder Lara DO Primary Care Provider [phone] Reason for Visit * Reason Comments eRx-Medication Refill Medication Refill Encounter Details Date Type Department Care Team Description 09/11/2019 Telephone [facility] [address] [place] [address] Rajwinder Lara DO [address] [place], [place] [id number] eRx-Medication Refill; Medication Refill Allergies Active Allergy Reactions Severity Noted Date Comments Penicillins Rash 02/12/2008 documented as of this encounter (statuses as of 09/13/2019) Medications Medication Sig Dispensed Refills Start Date [...] a day. 60 Tab 4 09/13/2019 Active oxybutynin (DITROPAN) 5 MG Tablet TAKE 1 TABLET BY MOUTH TWICE DAILY 60 Tab 4 06/11/2019 09/12/19 20 Discontinu ed(Refill) cyclobenzaprine (FLEXERIL) 10 MG Tablet TAKE 1 TABLET BY MOUTH AT BEDTIME 30 Tab 0 08/12/2019 09/12/19 20 Discontinu ed(Refill) pantoprazole (PROTONIX) 20 MG TBECIndications:Gas troesophageal reflux disease, esophagitis presence not specified,NAFLD (nonalcoholic fatty liver disease),Other cirrhosis of liver (HCC) Take 2 Tabs by mouth daily. 30 Tab 5 08/26/2019 09/12/19 20 Discontinu ed(Refill) documented as of this encounter (statuses as of 09/13/2019) Active Problems Problem Noted Date Thrombocytopenia 05/02/2019 [...] as of this encounter (statuses as of 09/13/2019) Resolved Problems Problem Noted Date Resolved Date [...] pain 01/24/2012 01/17/2017 Genetic Sleep Disorder Research Other*[id number] 05/13/2011 04/07/2016 Obstructive sleep apnea 01/18/2011 12/27/19 [...] as of this encounter (statuses as of 09/13/2019) Immunizations Name Administration Dates Next Due HEP [...] Telephone Encounter - Rajwinder Lara DO - 09/13/2019 1:37 PM EST Please call pt to see how she has been taking the ditropan. * Telephone Encounter - Susan Rosales RN - 09/13/2019 11:45 AM EST See message below what dose is patient to be taking of the Ditropan 5 mg? * Telephone Encounter - Ava Felix CPhT - 09/13/2019 11:05 AM EST Pharmacy stating patient was taking oxybutynin (DITROPAN) 5 MG Tablet 3 times a day. Please clarify Pharmacy phone: [phone] Thank you, Ava Felix Director Of Clinical Applications Refill Call Center 09/13/2019, 11:06 AM * Telephone Encounter - Rajwinder Lara DO - 09/13/2019 9:35 AM EST Signed Prescriptions: Disp Refills furosemide (LASIX) 20 MG Tablet 30 Tab 4 Sig: TAKE 1 TABLET BY MOUTH once daily NEEDED FoR EDEMAAuthorizing Provider: RAJWINDER LARA cyclobenzaprine (FLEXERIL) 10 MG Tablet 30 Tab 0 Sig: Take 1 Tab by mouth at bedtime.Authorizing Provider: RAJWINDER LARA oxybutynin (DITROPAN) 5 MG Tablet 60 Tab 4 Sig: Take 1 Tab by mouth 2 timesa day.Authorizing Provider: RAJWINDER LARA * Telephone Encounter - Rajwinder Lara DO - 09/13/2019 9:35 AM EST Signed Prescriptions: Disp Refills furosemide (LASIX) 20 MG Tablet 30 Tab 4 Sig: TAKE 1 TABLET BY MOUTH once daily NEEDED FoR EDEMA Authorizing Provider: RAJWINDER LARA cyclobenzaprine (FLEXERIL) 10 MG Tablet 30 Tab 0 Sig: Take 1 Tab by mouth at bedtime. Authorizing Provider: RAJWINDER LARA oxybutynin (DITROPAN) 5 MG Tablet 60 Tab 4 Sig: Take 1 Tab by mouth 2 times a day. Authorizing Provider: RAJWINDER LARA * Telephone Encounter - Pura Abernathy [facility] - 09/12/2019 1:28 PM EST Pending Prescriptions: Disp Refills furosemide (LASIX) 20 MG Tablet [Pharmacy*30 Tab 4 Sig: TAKE 1 TABLET BY MOUTH once daily NEEDED FoR EDEMA cyclobenzaprine (FLEXERIL) 10 MG Tablet 30 Tab 0 Sig: Take 1 Tab by mouth at bedtime. oxybutynin (DITROPAN) 5 MG Tablet 60 Tab 4 Sig: Take 1 Tab by mouth 2 times a day. * Telephone Encounter - Pura Abernathy [facility] - 09/12/2019 1:28 PM EST Pharmacists cannot authorize refills for meds listed as "historical" in chart. Flexeril and Ditropan are off protocol. Please approve if appropriate. Thank You, Pura Abernathy [facility] Clinical Pharmacist Telepharmacy 09/12/2019, 1:28 PM * Telephone Encounter - Imelda Duque [facility] - 09/12/2019 8:46 AM EST Medication(s) is/are listed as "Historical". Pt confirmed the current dosage, directions, and qty that they are normally prescribed, as reflected in the pending order below. Please review and approveif appropriate. Pending Prescriptions: Disp Refills furosemide (LASIX) 20 MG Tablet [Pharmacy*30 Tab 4 Sig: TAKE 1 TABLET BY MOUTH once daily NEEDED FoR EDEMA cyclobenzaprine (FLEXERIL) 10 MG Tablet 30 Tab 0 Sig: Take 1 Tab by mouth at bedtime. oxybutynin (DITROPAN) 5 MG Tablet 60 Tab 4 Sig: Take 1 Tab by mouth 2 times a day. Last Office Visit: 08/12/2019 Next Office Visit: 11/18/2019 Scheduled Provider(s): Rajwinder Lara DO If no future appointments scheduled, and last appointment is greater than a year ago, please schedule patient for a follow-up appointment Last date the medication was ordered: Historical Patient Phone Numbers Labs: Lab Results Component [...] Omalley RDN [address] [facility] [place] [address] [phone] 11/25/2019 Office Visit Family Medicine [facility]winder Lara [facility] [address] [facility] [address] 11/26/2019 Office Visit Gastroenterology Lyssa Stout CRNP [address] [facility] [place] [address] [phone] 12/31/2019 Office Visit Gynecology Obstetrics Rosaura Perez CNM [address] [facility] [place] [address] [phone] 09/03/2020 Imaging Radiology Health Maintenance Due Date [...] Venous stasis dermatitis of both lower extremities Gastroesophageal reflux disease, esophagitis presence not specified NAFLD (nonalcoholic fatty liver disease) Other chronic nonalcoholic liver disease Other cirrhosis of liver (HCC) documented in this encounter Advance Directives Documents on File Type Date Recorded Patient Comprehensive Advisor Expl anation Advanced Directive service a kerri default Advanced Directive Advanced Directive Advanced Directive Advanced Directive Advanced Directive Advanced Directive Advanced Directive Advanced Directive
--- OUTSIDE RECORDS SUMMARY | 2023-05-10 23:01 | External Medical Summary | Summary of Care ---
Author Name Unknown Organization [facility] Address [place] [address] Care Team Providers Care Dynamite Shooter Name Role Phone Rajwinder Lara DO Primary Care Provider [phone] Reason for Visit * Reason Comments eRx-Medication Refill Medication Refill Encounter Details Date Type Department Care Team Description 09/11/2019 Telephone [facility] [address] [place] [address] Rajwinder Lara DO [address] [place], [place] [id number] eRx-Medication Refill; Medication Refill Allergies Active Allergy [...] pain 01/24/2012 01/17/2017 Genetic Sleep Disorder Research Other*[id number] 05/13/2011 04/07/2016 Obstructive sleep apnea 01/18/2011 12/27/19 [...] Telephone Encounter - Rosio Hunter RN - 09/13/2019 4:28 PM EST Spoke to [facility] in [place] and patient is taking 2 x a day. * Telephone Encounter - Susan Rosales RN - 09/13/2019 2:51 PM EST Called Shaina about her Ditropan and she gets her pill already pill luisito and she does not know if shetakes it 2-3 times a day * Telephone Encounter - Rajwinder Lara DO [...] times a day. Please clarify Pharmacy phone: [phone] Thank you, Ava Felix Household Chores Refill Call Center 09/13/2019, 11:06 AM * Telephone Encounter - Rajwinder Lara DO - 09/13/2019 9:35 AM EST Signed Prescriptions: Disp Refills furosemide (LASIX) 20 MG Tablet 30 Tab 4 Sig: TAKE 1 TABLET BY MOUTH once daily NEEDED FoR EDEMAAuthorizing Provider: RAJWINDER LARA cyclobenzaprine (FLEXERIL) 10 MG Tablet 30 Tab 0 Sig: Take 1 Tab by mouth at bedtime.Authorizing Provider: RAJWINDER LARA Moxybutynin (DITROPAN) 5 MG Tablet 60 Tab 4 Sig: Take 1 Tab by mouth 2 timesa day.Authorizing Provider: RAJWIDNER LARA * Telephone Encounter - Rajwinder Lara [...] LARA * Telephone Encounter - Pura Abernathy [facility] - 09/12/2019 1:28 PM EST Pending Prescriptions: [...] day. * Telephone Encounter - Pura Abernathy [facility] - 09/12/2019 1:28 PM EST Pharmacists cannot authorize refills for meds listed as "historical" in chart. Flexeril and Ditropan are off protocol. Please approve if appropriate. Thank You, Pura Abernathy [facility] Clinical Pharmacist Telepharmacy 09/12/2019, 1:28 PM * Telephone Encounter - Imelda Duque CPhT - 09/12/2019 8:46 AM EST Medication(s) is/are [...] Next Office Visit: 11/18/2019 Scheduled Provider(s): Rajwinder Lara, DO If no [...] [address] [place] [address] [phone] 11/25/2019 Office Visit Family Medicine Rajwinder Lara DO [address] [facility] [place] [address] 11/26/2019 Office Visit Gastroenterology Lyssa Stout CRNP [address] [facility] [place] [address] 12/31/2019 Office Visit Gynecology Obstetrics Rosaura Perez, CN [address] [place] [address] 09/03/2020 Imaging Radiology Health [...] Documents on File Type Date Recorded Patient Cordage Sales Representative Expl anation Advanced Directive service a kerri default Advanced Directive Advanced Directive Advanced Directive Advanced Directive Advanced Directive Advanced Directive Advanced Directive Advanced Directive
--- OUTSIDE RECORDS SUMMARY | 2023-05-10 23:01 | External Medical Summary | Summary of Care ---
Author Name Unknown Organization [facility] Address [place] [address] Care Team Providers Care Account Director Name Role Phone Rajwinder Carter DO Primary Care Provider [phone] Reason for Visit * Reason Comments FYI Encounter Details Date Type Department Care Team Description 09/27/2019 Telephone [facility] [address] [place] [address] Rajwinder Carter DO [address] [place] [address] FYI Allergies Active Allergy Reactions [...] less than 7.0% ([facility]) INJECT 24 UNITS UNDER THE SKIN AT [...] less than 7.0% ([facility]) TAKE 1 TABLET [...] pain 01/24/2012 01/17/2017 Genetic Sleep Disorder Research Other*[id number] 05/13/2011 04/07/2016 Obstructive sleep apnea 01/18/2011 12/27/19 [...] encounter Miscellaneous Notes * Telephone Encounter - Miley Cutler OSA - 09/27/2019 11:27 AM EST Pt calls stating that she has a really bad cough. Asks if something can be sent to the pharmacy forher. States that she can cough it up a little but most of the time she can't get it to come up. It makes her SOB. Pt agreed to be scheduled for appt at 12:30 today. documented in this encounter Plan of Treatment Upcoming Encounters Date Type Specialty Care Team Description 09/27/2019 Office Visit Family Medicine Janett Cohn PA-C [address] [facility] [place] [address] [phone] 10/29/2019 Nutrition Services Gastroenterology Melissa Omalley RDN [address] [place] [address] [phone] 11/25/2019 Office Visit Family Medicine [facility]inder Carter [facility] [address] [facility] [id number] 11/26/2019 Office Visit Gastroenterology Lyssa Stout CRNP [address] [place] [address] 12/31/2019 Office Visit Gynecology Obstetrics Rosaura Perez, BOOM [address] [place] [address] 09/03/2020 Imaging Radiology Health Maintenance Due [...] on File Type Date Recorded Patient Clothing Patternmaker Expl anation Advanced Directive service a kerri default Advanced Directive Advanced Directive Advanced Directive Advanced Directive Advanced Directive Advanced Directive Advanced Directive Advanced Directive
--- OUTSIDE RECORDS SUMMARY | 2023-05-10 23:01 | External Medical Summary | Summary of Care ---
Author Name Unknown Organization [facility] Address [place] [address] Care Team Providers Care Investigative Analyst Name Role Phone JohnbrianRajwinder thacker Primary Care Provider [phone] Reason for Visit * Reason Comments Test Results Imaging Study cxr- pulmonar y congestion Encounter Details Date Type Department Care Team Description 09/27/2019 Telephone Family Practice [facility] [address] [place] [address] Janett Cohn PA-C [address] [facility] [place] [id number] Test Results Imaging Study (cxr- pulmonary... Allergies [...] less than 7.0% ([facility]) Inject 1 syringeful once weekly [...] of less than 7.0% ([facility]) TAKE 1 TABLET BY [...] pain 01/24/2012 01/17/2017 Genetic Sleep Disorder Research Other*[id number] 05/13/2011 04/07/2016 Obstructive sleep apnea 01/18/2011 12/27/19 [...] Medicine [facility]winder Carter DO [address] [facility] [address] 11/26/2019 Office Visit Gastroenterology Lyssa Stout CRNP [address] [facility] [place] [address] 01/09/2020 Office Visit Gynecology Obstetrics Aman Small, CNM [address] [place] [id number] 09/03/2020 Imaging Radiology Health Maintenance Due Date [...] Documents on File Type Date Recorded Patient Scoreboard Operator Expl anation Advanced Directive service a kerri default Advanced Directive Advanced Directive Advanced Directive Advanced Directive Advanced Directive Advanced Directive Advanced Directive Advanced Directive
--- OUTSIDE RECORDS SUMMARY | 2023-05-10 23:01 | External Medical Summary | Summary of Care ---
Author Name Unknown Organization [facility] Address [place] [address] Care Team Providers Care Underground Miner Name Role Phone JohnbrianRajwinder thacker Primary Care Provider [phone] Reason for Visit * Reason Comments Test Results Imaging Study cxr- pulmonar y congestion Encounter Details Date Type Department Care Team Description 09/27/2019 Telephone Family Practice [facility] [address] [place] [address] Janett Cohn PA-C [address] [employer] [facility] [place] [address] [phone] Test Results Imaging Study (cxr- pulmonary... Allergies Active Allergy Reactions Severity Noted Date Comments Penicillins Rash 02/12/2008 documented as of this encounter (statuses as of 09/28/2019) Medications Medication Sig Dispensed Refills Start Date End Date Status CENTRUM SILVER PO TABS 1 tab daily 1 Tab 0 05/25/2012 Active vitamin c (ASCORBIC ACID) 500 MG Tablet Take 500 mg by mouth daily. 0 Active insulin glargine (LANTUS SOLOSTAR) 100 UNIT/ML SOPNIndications:Type 2 diabetes mellitus with hemoglobin A1c goal of less than 7.0% ([facility]) INJECT 24 UNITS UNDER THE [...] than 7.0% ([facility]) Inject 1 syringeful once weekly [...] less than 7.0% ([facility]) TAKE 1 TABLET BY MOUTH [...] as of this encounter (statuses as of 09/28/2019) Active Problems Problem Noted Date Thrombocytopenia 05/02/2019 [...] as of this encounter (statuses as of 09/28/2019) Resolved Problems Problem Noted Date Resolved Date [...] pain 01/24/2012 01/17/2017 Genetic Sleep Disorder Research Other*[id number] 05/13/2011 04/07/2016 Obstructive sleep apnea 01/18/2011 12/27/19 [...] as of this encounter (statuses as of 09/28/2019) Immunizations Name Administration Dates Next Due HEP [...] Miscellaneous Notes * Telephone Encounter - Dulce Mckeon LPN [...] [address] [place] [id number] 11/25/2019 Office Visit Family Medicine Rajwinder Carter, [address] [facility] [place] [address] 11/26/2019 Office Visit Gastroenterology Lyssa Stout CRNP [address] [place] [address] 12/31/2019 Office Visit Gynecology Obstetrics Rosaura Perez CN [address] [place] [address] 09/03/2020 Imaging Radiology Health [...] Documents on File Type Date Recorded Patient Expert Medical Writer Expl anation Advanced Directive service a kerri default Advanced Directive Advanced Directive Advanced Directive Advanced Directive Advanced Directive Advanced Directive Advanced Directive Advanced Directive
--- OUTSIDE RECORDS SUMMARY | 2023-05-10 23:01 | External Medical Summary | Summary of Care ---
Author Name Unknown Organization [facility] Address [facility] [place] [address] Care Team Providers Care Surgical Resident Name Role Phone JohnbrianRajwinder thacker Primary Care Provider [phone] Reason for Visit * Reason Comments Medication Refill Encounter Details Date Type Department Care Team Description 09/12/2019 Refill Gastroenterology, [facility] [address] [facility] [place] [address] Lyssa Saxena CRNP [address] [facility] [place] [address] [phone] Hypokalemia; Gastroesophageal reflux disease, esophagitis presence not specified; [...] than 7.0% ([facility]) INJECT 24 UNITS UNDER THE SKIN [...] than 7.0% ([facility]) Inject 1 syringeful once weekly 4 [...] than 7.0% ([facility]) TAKE 1 [...] AT BEDTIME 90 Tab 0 08/12/2019 Active pantoprazole (PROTONIX) 20 MG TBECIndications:Gas troesophageal reflux disease, esophagitis presence not specified,NAFLD (nonalcoholic fatty liver disease),Other cirrhosis of liver (HCC) Take 2 Tabs by mouth daily. 60 Tab 5 09/13/2019 Active pantoprazole (PROTONIX) 20 MG TBECIndications:Gas [...] pain 01/24/2012 01/17/2017 Genetic Sleep Disorder Research Other*[id number] 05/13/2011 04/07/2016 Obstructive sleep apnea 01/18/2011 12/27/19 [...] Telephone Encounter - Lyssa Saxena CRNP - 09/13/2019 12:03 PM EST Signed Prescriptions: Disp Refills pantoprazole (PROTONIX) 20 MG TBEC 60 Tab 5 Sig: Take 2 Tabs by mouth daily. Authorizing Provider: LYSSA SAXENA * Telephone Encounter - Pura Abernathy [facility] - 09/12/2019 3:23 PM EST Pending Prescriptions: Disp Refills pantoprazole (PROTONIX) 20 MG TBEC 60 Tab 5 Sig: Take 2 Tabs by mouth daily. * Telephone Encounter - Imelda Duque CPhT - 09/12/2019 8:49 AM EST Pharmacy calling to request full month supply of medication. Pending Prescriptions: Disp Refills pantoprazole (PROTONIX) 20 MG TBEC 60 Tab 5 Sig: Take 2 Tabs by mouth daily. Last Office Visit: 08/12/2019 Next Office Visit: 11/18/2019 Scheduled Provider(s): Rajwinder Carter, DO If no future appointments scheduled, and last appointment is greater than a year ago, please schedule patient for a follow-up appointment Last date the medication was ordered: 08/26/2019 Pharmacy: [id number] [facility] Is this [...] [address] [place] [address] [phone] 11/25/2019 Office Visit Family Medicine Rajwinder Carter DO [address] [facility] [id number] 11/26/2019 Office Visit Gastroenterology Lyssa Saxena CRNP [address] [place] [address] 12/31/2019 Office Visit Gynecology Obstetrics Rosaura Perez, CNM [address] [place] [address] 09/03/2020 Imaging [...] this encounter Visit Diagnoses Diagnosis Hypokalemia Hypopotassemia Gastroesophageal reflux disease, esophagitis presence not specified NAFLD (nonalcoholic fatty liver disease) Other chronic nonalcoholic liver disease Other cirrhosis of liver (HCC) documented in this encounter Advance Directives Documents on File Type Date Recorded Patient Property Management Coordinator Expl anation Advanced Directive service a kerri default Advanced Directive Advanced Directive Advanced Directive Advanced Directive Advanced Directive Advanced Directive Advanced Directive Advanced Directive
--- OUTSIDE RECORDS SUMMARY | 2023-05-10 23:01 | External Medical Summary | Summary of Care ---
Author Name Unknown Organization [facility] Address [place] [address] Care Team Providers Care Education Program Coordinator Name Role Phone Rajwinder Lara DO Primary Care Provider [phone] Reason for Visit * Reason Comments eRx-Medication Refill Medication Refill Encounter Details Date Type Department Care Team Description 09/11/2019 Telephone [facility] [address] [place] [address] Rajwinder Lara DO [address] [place], [place] [id number] eRx-Medication Refill; Medication Refill Allergies Active Allergy [...] pain 01/24/2012 01/17/2017 Genetic Sleep Disorder Research Other*[id number] 05/13/2011 04/07/2016 Obstructive sleep apnea 01/18/2011 12/27/19 [...] times a day. Please clarify Pharmacy phone: [phone] Thank you, Ava Felix Indirect Fire Infantryman Refill Call Center 09/13/2019, 11:06 AM * [...] Telephone Encounter - Pura Abernathy [facility] - 09/12/2019 1:28 PM EST [...] Telephone Encounter - Pura Abernathy [facility] - 09/12/2019 1:28 PM EST Pharmacists cannot authorize refills for meds listed as "historical" in chart. Flexeril and Ditropan are off protocol. Please approve if appropriate. Thank You, Pura Abernathy [facility] Clinical Pharmacist Telepharmacy 09/12/2019, 1:28 [...] [address] 11/25/2019 Office Visit Family [facility] [address] 11/26/2019 Office Visit Gastroenterology Lyssa Stout CRNP [address] [place] [address] 12/31/2019 Office Visit Gynecology Obstetrics Rosaura Perez CNM [address] [place] [address] [phone] 09/03/2020 Imaging Radiology Health Maintenance Due Date [...] on File Type Date Recorded Patient Spray Gunner Expl anation Advanced Directive service a kerri default Advanced Directive Advanced Directive Advanced Directive Advanced Directive Advanced Directive Advanced Directive Advanced Directive Advanced Directive
--- OUTSIDE RECORDS SUMMARY | 2023-05-10 23:02 | External Medical Summary | Summary of Care ---
Author Name Unknown Organization [facility] Address [place] [address] Care Team Providers Care Garment Sewer Hand Name Role Phone Rajwinder Lara DO Primary Care Provider [phone] Reason for Visit * Reason Comments eRx-Medication Refill Medication Refill Encounter Details Date Type Department Care Team Description 09/11/2019 Telephone [facility] [address] [place] [address] Rajwinder Lara DO [address] [place], [place] [phone] eRx-Medication Refill; Medication Refill Allergies Active Allergy [...] of less than 7.0% ([facility]) INJECT 24 UNITS UNDER THE [...] of less than 7.0% ([facility]) TAKE 1 TABLET BY MOUTH [...] by mouth daily. 30 Tab 5 08/26/2019 Active furosemide (LASIX) 20 MG TabletIndications:L ocalized [...] Tab 0 08/12/2019 09/12/19 20 Discontinu ed(Refill) documented as of [...] pain 01/24/2012 01/17/2017 Genetic Sleep Disorder Research Other*[id number] 05/13/2011 04/07/2016 Obstructive sleep apnea 01/18/2011 12/27/19 [...] times a day. Please clarify Pharmacy phone: [phone] Thank you, Ava Felix Mold Cutting Machine Operator Refill Call Center 09/13/2019, 11:06 AM * Telephone Encounter - Rajwinder Lara, - 09/13/2019 9:35 AM EST Signed Prescriptions: [...] PM * Telephone Encounter - Imelda Duque [facility] - 09/12/2019 8:46 AM EST Medication(s) [...] Family Medicine Rajwinder Lara DO [address] [place], [place] [phone] 11/26/2019 Office Visit Gastroenterology Lyssa Stout CRNP [address] [place] [address] 12/31/2019 Office Visit Gynecology Obstetrics Rosaura Perez CNM [address] [place] [address] 09/03/2020 [...] Documents on File Type Date Recorded Patient Photo Producer Expl anation Advanced Directive service a kerri default Advanced Directive Advanced Directive Advanced Directive Advanced Directive Advanced Directive Advanced Directive Advanced Directive Advanced Directive
--- OUTSIDE RECORDS SUMMARY | 2023-05-10 23:02 | External Medical Summary | Summary of Care ---
Author Name Unknown Organization [facility] Address [place] [address] Care Team Providers Care Regional Operations Manager Name Role Phone Rajwinder Carter DO Primary Care Provider [phone] Reason for Visit * Reason Comments Order Request Encounter Details Date Type Department Care Team Description 05/06/2019 Telephone [facility] [address] [place] [address] Rajwinder Carter DO [address] [place] [address] Order Request Allergies Active Allergy Reactions Severity Noted Date Comments Penicillins Rash 02/12/2008 documented as of this encounter (statuses as of 08/13/2019) Medications Medication Sig Dispensed Refills Start Date [...] day 0 Active Dulaglutide (TRULICITY) 1.5 MG/0.5ML SOPNIndications:T ype 2 diabetes mellitus with hemoglobin A1c goal of less than 7.0% (HCC) Inject 1 syringeful once weekly 4 Pre-filled Pen Syringe Dosing Unit 5 05/06/2019 Active gabapentin (NEURONTIN) 300 MG Capsule One pill in am, one midday, two in pm, 180 Cap 5 05/06/2019 Active documented as of this encounter (statuses as of 08/13/2019) Active Problems Problem Noted Date Thrombocytopenia 05/02/2019 [...] as of this encounter (statuses as of 08/13/2019) Resolved Problems Problem Noted Date Resolved Date [...] pain 01/24/2012 01/17/2017 Genetic Sleep Disorder Research Other*[id number] 05/13/2011 04/07/2016 Obstructive sleep apnea 01/18/2011 12/27/19 [...] as of this encounter (statuses as of 08/13/2019) Immunizations Name Administration Dates Next Due HEP A - Hepatitis A (Adult > 18 yrs) 09/24/2018, 03/26/2018 Hepatitis B, 20+ yrs 09/24/2018,04/23/2018,03/26 Pneumococcal Conjugate Vacc, 13 Valent (Prevnar) 05/02/2019 Pneumococcal Polysaccharide PPV23 (Pneumovax) 06/01/2010 Seasonal Influenza, Quadriva lent, No Preserve, 6 Mons & Above, IM 05/16/2018,07/10/2017 Seasonal Influenza, Quadriva lent, No Preserve, IM [...] Used Alcohol Use Drinks/Week oz/Week Comments No Sex Assigned at Date Recorded Not on file Job Start Date Occupation Industry Not on file Not on file Not on file Travel History Travel Start Travel End documented as of this encounter Miscellaneous Notes * Telephone Encounter - Jovana Lambert RN - 05/06/2019 11:39 AM EDT Dickveronica faxed form requesting additional RX for Electric Wheel Chair Dr Jordan sent information Asking for Written RX For " Therapist Evaluation For Power Mobility " Fax to [phone] From Frida Patel [phone] Ext 124 Letter of request on your desk documented in this encounter Plan of Treatment Upcoming Encounters Date Type Specialty Care Team Description 08/26/2019 Office Visit Gastroenterology Lyssa Stout CRNP [address] [place] [address] [phone] 09/02/2019 Imaging Radiology 10/29/2019 Nutrition Services Gastroenterology Melissa Omalley RDN [address] [place] [address] [phone] 11/18/2019 Office Visit Family Medicine [facility]inder Carter DO [address] [facility] [address] 12/31/2019 Office Visit Gynecology Obstetrics Rosaura Perez CNM [address] [place] [address] [phone] Health Maintenance Due Date Last Done Comments BREAST CANCER SCREENING DISCUSSION YEARLY AGES 40-75 04/04/2019 04/04/2018, 01/18/2017, 01/17/2017 (Discussed), Additional history exists DIABETES-EYE EXAM 06/12/2019 06/12/2018, , 06/12/2018, Additional history exists DIABETES-HGBA1C EVERY 6 MONTHS 10/06/2019 04/05/2019, 09/21/2018, 02/13/2018, Additional history exists PAP SMEAR-EVERY 3 YRS,AGES 21-65 10/10/2019 10/10/2016, 07/02/2014, 04/16/2013, Additional history exists Yearly B-12 12/25/2019 12/24/2018, 02/13/2018 DIABETES-FOOT EXAM 01/10/2020 01/09/2019, 0 12/26/2017, 03/22/2017, Additional history exists DIABETES-URINE MICROALBUMIN EVERY 12 MONTHS 01/12/2020 01/11/2019, 08/24/2018, 07/19/2018, Additional history exists DTaP,Tdap,and Td Vaccines (3 [...] Documents on File Type Date Recorded Patient Film Replacement Orderer Expl anation Advanced Directive service a kerri default Advanced Directive Advanced Directive Advanced Directive Advanced Directive Advanced Directive Advanced Directive Advanced Directive Advanced Directive
--- OUTSIDE RECORDS SUMMARY | 2023-05-10 23:02 | External Medical Summary | Summary of Care ---
Author Name Unknown Organization [facility] Address [place] [address] Care Team Providers Care Patient Support Tech Name Role Phone Rajwinder Carter DO Primary Care Provider [phone] Reason for Visit * Reason Comments Forms Request Encounter Details Date Type Department Care Team Description 05/17/2019 Telephone [facility] [address] [place] [address] Rajwinder Carter DO [address] [place] [address] Forms Request Allergies Active Allergy [...] pain 01/24/2012 01/17/2017 Genetic Sleep Disorder Research Other*[id number] 05/13/2011 04/07/2016 Obstructive sleep apnea 01/18/2011 12/27/19 [...] Miscellaneous Notes * Telephone Encounter - Tamara Jara LPN - 05/20/2019 11:48 AM EDT Misty from [facility] calling to check status of this request. FAX: [phone] PHONE: [phone] * Telephone Encounter - Jovana Lambert RN - 05/17/2019 8:56 AM EDT Home Delivered Form for incontinent supplies on your desk Form on your desk documented in this encounter Plan of Treatment Upcoming Encounters Date Type Specialty Care Team Description 08/26/2019 Office Visit Gastroenterology Lyssa Stout CRNP [address] [facility] [place] [address] [phone] 09/02/2019 Imaging Radiology 10/29/2019 Nutrition Services Gastroenterology Melissa Omalley RDN [address] [place] [address] [phone] 11/18/2019 Office Visit Family Medicine Rajwinder Carter DO [address] [place] [address] 12/31/2019 Office Visit Gynecology Obstetrics Rosaura Perez CNM [address] [facility] [place] [address] Health Maintenance Due Date Last Done [...] Documents on File Type Date Recorded 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
--- OUTSIDE RECORDS SUMMARY | 2023-05-10 23:02 | External Medical Summary | Summary of Care ---
Author Name Unknown Organization [facility] Address [place] [address] Care Team Providers Care Humanities Teacher Name Role Phone Rajwinder Carter Primary Care Provider [phone] Encounter Details Date Type Department Care Team Description 09/09/2019 Scan Encounter Unspecified Department <No scans attached> Allergies Active Allergy Reactions Severity Noted Date Comments Penicillins Rash 02/12/2008 documented as of this encounter (statuses as of 09/10/2019) Medications Medication Sig Dispensed Refills Start Date [...] mouth daily. 60 Tab 3 06/06/2019 Active oxybutynin (DITROPAN) 5 MG Tablet TAKE 1 TABLET BY MOUTH TWICE DAILY 60 Tab 4 06/11/2019 Active MetFORMIN (GLUCOPHAGE) 1000 MG TabletIndications:Ty pe 2 diabetes mellitus with hemoglobin A1c goal of less than 7.0% ([facility]) TAKE 1 TABLET [...] DAILY DIRECTED 16 g 5 08/01/2019 Active cyclobenzaprine (FLEXERIL) 10 MG Tablet TAKE 1 TABLET BY MOUTH AT BEDTIME 30 Tab 0 08/12/2019 Active atorvaSTATin (LIPITOR) 40 MG TabletIndications:Dy slipidemia, goal LDL below 70 TAKE 1 TABLET BY MOUTH EVERY NIGHT AT BEDTIME 90 Tab 0 08/12/2019 Active pantoprazole (PROTONIX) 20 MG TBECIndications:Rohit roesophageal reflux disease, esophagitis presence not specified,NAFLD (nonalcoholic fatty liver disease),Other cirrhosis of liver (HCC) Take 2 Tabs by mouth daily. 30 Tab 5 08/26/2019 Active documented as of this encounter (statuses as of 09/10/2019) Active Problems Problem Noted Date Thrombocytopenia 05/02/2019 [...] as of this encounter (statuses as of 09/10/2019) Resolved Problems Problem Noted Date Resolved Date [...] pain 01/24/2012 01/17/2017 Genetic Sleep Disorder Research Other*[id number] 05/13/2011 04/07/2016 Obstructive sleep apnea 01/18/2011 12/27/19 [...] as of this encounter (statuses as of 09/10/2019) Immunizations Name Administration Dates Next Due HEP [...] [address] [place] [id number] 11/18/2019 Office Visit [facility] [address] [facility] [address] 11/26/2019 Office Visit Gastroenterology Lyssa Stout CRNP [address] [place] [address] 12/31/2019 Office Visit Gynecology Obstetrics Rosaura Perez CN [address] [place] [address] 09/03/2020 Imaging Radiology Health [...] Documents on File Type Date Recorded Patient Church Official Expl anation Advanced Directive service a kerri default Advanced Directive Advanced Directive Advanced Directive Advanced Directive Advanced Directive Advanced Directive Advanced Directive Advanced Directive
--- OUTSIDE RECORDS SUMMARY | 2023-05-10 23:02 | External Medical Summary | Summary of Care ---
Author Name Unknown Organization [place] [address] Care Team Providers Care Sales Representative Aircraft Name Role Phone Rajwinder Lara DO Primary Care Provider + [phone] Reason for Visit * Reason Comments eRx-Medication Refill Encounter Details Date Type Department Care Team Description 09/11/2019 Refill [place] [address] [place] [address] Rajwinder Lara DO [address] [place] [address] [phone] Localized edema; Venous stasis dermatitis of both lower extremities; Gastroesophageal reflux disease, esophagitis presence not specified; [...] than 7.0% ([facility]) Inject 1 syringeful once weekly 4 [...] pain 01/24/2012 01/17/2017 Genetic Sleep Disorder Research Other*[id number] 05/13/2011 04/07/2016 Obstructive sleep apnea 01/18/2011 12/27/19 [...] LARA * Telephone Encounter - Pura Abernathy [facility] - 09/12/2019 1:28 PM EST [...] a day. * Telephone Encounter - Pura Abrenathy [facility] - 09/12/2019 1:28 PM EST Pharmacists cannot authorize refills for meds listed as "historical" in chart. Flexeril and Ditropan are off protocol. Please approve if appropriate. Thank You, Pura Abernathy [facility] Clinical Pharmacist Telepharmacy 09/12/2019, 1:28 PM * Telephone Encounter - Imelda Duque [facility] - 09/12/2019 8:46 AM EST Medication(s) is/are [...] [address] [place] [address] [phone] 11/18/2019 Office Visit Family Medicine Rajwinder Lara [facility] [address] [facility] [id number] 11/26/2019 Office Visit Gastroenterology Lyssa Stout CRNP [...] Documents on File Type Date Recorded Patient Continuous Absorption Process Operator Expl anation Advanced Directive service a kerri default Advanced Directive Advanced Directive Advanced Directive Advanced Directive Advanced Directive Advanced Directive Advanced Directive Advanced Directive
--- OUTSIDE RECORDS SUMMARY | 2023-05-10 23:02 | External Medical Summary | Summary of Care ---
Author Name Unknown Organization [facility] Address [place] [address] Care Team Providers Care Supervisor Blood Name Role Phone Rajwinder Carter DO Primary Care Provider + [phone] Reason for Visit * Reason Comments Re-Check Encounter Details Date Type Department Care Team Description 07/18/2019 Office Visit [facility] [address] [place] [address] Rajwinder Carter DO [address] [place] [address] [phone] Bronchitis, complicated*; Cerebral palsy, unspecified type ([facility]); Encounter for screening mammogram for breast cancer Allergies Active Allergy Reactions Severity Noted Date Comments Penicillins Rash 02/12/2008 documented as of this encounter (statuses as of 08/20/2019) Medications Medication Sig Dispensed Refills Start Date [...] day 0 Active Dulaglutide (TRULICITY) 1.5 MG/0.5ML SOPNIndications:Ty pe 2 diabetes mellitus with hemoglobin A1c goal of less than 7.0% ([facility]) Inject 1 syringeful once weekly [...] DAILY 30 Tab 5 9 Active Additional information Patient taking differently: TAKE [...] mouth daily. 60 Tab 3 9 Active oxybutynin (DITROPAN) 5 MG Tablet TAKE 1 TABLET BY MOUTH TWICE DAILY 60 Tab 4 9 Active MetFORMIN (GLUCOPHAGE) 1000 MG TabletIndications: Type 2 diabetes mellitus with hemoglobin A1c goal of less than 7.0% ([facility]) TAKE 1 TABLET BY MOUTH TWICE DAILY WITH FOOD 180 Tab 3 9 Active albuterol HFA (PROAIR HFA) 108 (90 BASE) MCG/ACT inhaler Inhale 2 Puffs by mouth every 4 hours as needed for Cough or Wheezing. With spacer 1 Inhaler 1 9 Active fluticasone (FLONASE) 50 MCG/ACT nasal sprayIndications:S inus congestion Administer 2 Sprays into each nostril daily. 1 Inhaler 5 9 019 Discontinued(Re fill) omeprazole (PRILOSEC) 20 MG CPDR TAKE 1 CAPSULE BY MOUTH ONCE DAILY 90 Cap 3 9 019 Discontinued(Me dication/Dose Changed) cyclobenzaprine (FLEXERIL) 10 MG Tablet TAKE 1 TABLET BY MOUTH AT BEDTIME 30 Tab 0 9 019 Discontinued(Re fill) predniSONE (DELTASONE) 20 MG Tablet 3 tabs daily for 3 days, 2 tabs daily for 2 days, 1 tab daily for 2 days 15 Tab 0 9 019 Discontinued doxycycline hyclate 100 MG CapsuleIndications :Bronchitis, complicated Take 1 Cap by mouth 2 times a day for 10 days. Until gone. 20 Cap 0 9 019 documented as of this encounter (statuses as of 08/20/2019) Active Problems Problem Noted Date Thrombocytopenia 05/02/2019 [...] as of this encounter (statuses as of 08/20/2019) Resolved Problems Problem Noted Date Resolved Date [...] pain 01/24/2012 01/17/2017 Genetic Sleep Disorder Research Other*[id number] 05/13/2011 04/07/2016 Obstructive sleep apnea 01/18/2011 12/27/19 [...] as of this encounter (statuses as of 08/20/2019) Immunizations Name Administration Dates Next Due HEP [...] Reading Time Taken Comments Blood Pressure 122/70 07/18/2019 1:47 PM EST Pulse 88 07/18/2019 1:47 PM EST Temperature 36.6 C (97.8 F) 07/18/2019 1:47 PM ES T Respiratory Rate 18 07/18/2019 1:47 PM EST Oxygen Saturation - - Inhaled Oxygen Concentration - - Weight - - Height - - Body Mass Index - - documented in this encounter Progress Notes * Rajwinder Carter DO - 07/18/2019 2:18 PM EST SUBJECTIVE: Chief Complaint Patient presents with Re-Check HPI: Shaina Bustos is a 64 year old female who presents today for regular return. Pt states that shewas told she would have her new power wheelchair in August. She is currently using her old chair. Pt was seen at the [facility] and started on prednisone and albuterol for bronchitis. She notes that she has some difficulty getting mucous up. She notes no wheezing. She has some shortness of breath. No fevers. She has some fatigue. She some sore throat. She is not sure if the prednisone helped her symptoms. She was not given an antibiotic. Pt reports that she was in [facility] 06/18-07/02. She states that she went in for a rehabilitation stay. She notes that she still has difficulty moving her legs. She notes no improvement at [facility] with this. She is not doing any therapy at home. She will get up on the side of the bed twice a day. She has a candace lift for transfers. PHM: Patient Active Problem List Diagnosis Code [...] Chronic pain syndrome G89.4 MEDICATION USE AGREEMENT [id number] History of Clostridium difficile colitis Z86.19 Cirrhosis of liver ([facility]) K74.60 THAD on CPAP G47.33, Z99.89 Wheelchair dependent Z99.3 History of recent fall Z91.81 Pancytopenia ([facility]) D61.818 Ambulatory dysfunction R26.2 Fall [...] Thrombocytopenia ([facility]) D69.6 Current Outpatient Medications Medication Sig Dispense Refill albuterol HFA (PROAIR HFA) 108 (90 BASE) MCG/ACT inhaler Inhale 2 Puffs by mouth every 4 hours as needed for Cough or Wheezing. With spacer 1 Inhaler 1 MetFORMIN (GLUCOPHAGE) 1000 MG Tablet TAKE 1 TABLET BY MOUTH TWICE DAILY WITH FOOD 180 Tab 3 oxybutynin (DITROPAN) 5 MG Tablet TAKE 1 TABLET BY MOUTH TWICE DAILY 60 Tab 4 cyclobenzaprine (FLEXERIL) 10 MG Tablet TAKE 1 TABLET BY MOUTH AT BEDTIME 30 Tab 0 escitalopram (LEXAPRO) 20 MG Tablet TAKE 1 [...] SOPN Inject 1 syringeful once weekly 4 Pre- filled Pen Syringe Dosing Unit 5 gabapentin (NEURONTIN) [...] SKIN AT BED TIME 15 mL 3 omeprazole (PRILOSEC) 20 MG CPDR TAKE 1 CAPSULE BY MOUTH ONCE DAILY 90 Cap 3 fluticasone (FLONASE) 50 MCG/ACT nasal spray Administer 2 Sprays into each nostril daily. 1 Inhaler5 vitamin c (ASCORBIC ACID) 500 MG Tablet [...] DIAGNOSTIC (RECTUM) 10/04/2016 normal bx, repeat 10 yrs/[facility] DENTAL SURGERY PROCEDURE NEC wisdom teeth x 4 DILATION AND CURETTAGE (D&C) EGD, FLEXIBLE, DIAGNOSTIC 10/04/2016 gastritis/[facility] EGD, FLEXIBLE, DIAGNOSTIC 01/11/2018 eso varices, retained food, repeat 1 yr/[facility] PELVIS/HIP JOINT SURGERY NEC teenager aid [...] chills, fatigue, fever and unexpected weight change. HENT: Positive for congestion. Negative for ear pain, sinus pain and sore throat. Respiratory: Positive for cough and shortness of breath. Negative for chest tightness and wheezing. Cardiovascular: Negative for chest pain, palpitations and leg swelling. Gastrointestinal: Negative for abdominal pain, constipation, diarrhea, nausea and vomiting. Musculoskeletal: Negative for arthralgias, gait problem and joint swelling. Skin: Negative for color change, pallor and rash. Neurological: Positive for weakness. OBJECTIVE: BP 122/70 | Pulse 88 | Temp (Src) 97.8 (Tympanic) | Resp 18 | Wt (0.000kg) PHYSICAL EXAM: Physical Exam Constitutional: General: She is not in acute distress. Appearance: She is well-developed. HENT: Right Ear: Tympanic membrane, ear canal and external ear normal. Left Ear: Tympanic membrane, ear canal and external ear normal. Nose: Congestion present. Mouth/Throat: Mouth: Mucous membranes are moist. Pharynx: Oropharynx is clear. Cardiovascular: Rate and Rhythm: Normal rate and [...] of motion. General: No tenderness or deformity. Lymphadenopathy: Cervical: No cervical adenopathy. Skin: General: Skin is warm and dry. Coloration: Skin is not pale. Findings: No erythema or rash. Neurological: Mental Status: She is alert and oriented to person, place, and time. ASSESSMENT/PLAN: (J40) Bronchitis, complicated (primary encounter diagnosis) Plan: doxycycline hyclate 100 MG Capsule Pt will start doxycycline. Finish out prednisone. Continue to monitor for new or worsening symptoms. CXR if persistent. (G80.9) Cerebral palsy, unspecified type (HCC) Plan: Pt will continue with chair and candace lift. She does not want further PT at home at present. (Z12.31) Encounter for screening mammogram for breast cancer Plan: MAMMOGRAM SCREENING BILATERAL Mammogram ordered. Pt encouraged to schedule. Follow-up: 3 months Rajwinder Carter DO documented in this encounter Nursing Notes * Jovana Lambert, UMA - 07/18/2019 1:46 PM EST Here fro a recheck Discharged from [facility] documented in this encounter Plan of Treatment Upcoming Encounters Date Type Specialty Care Team Description 08/26/2019 Office Visit Gastroenterology Lyssa Stout CRNP [address] [place] [address] 09/02/2019 Imaging Radiology 10/29/2019 Nutrition Services Gastroenterology Melissa Omalley RDN [address] [place] [id number] 11/18/2019 Office Visit Family Medicine [facility] [address] [facility] [address] 12/31/2019 Office Visit Gynecology Obstetrics Rosaura Perez CNM [address] [place] [address] Scheduled Orders Name Type Priority Associated Diagnoses Orde r Schedule MAMMOGRAM SCREENING BILATERAL Medical Imaging Routine Encounter for screening mammogram for breast cancer Ordered: 07/18/2019 Health Maintenance Due Date Last Done Comments [...] of this encounter Visit Diagnoses Diagnosis Bronchitis, complicated- Primary Bronchitis, not specified as acute or chronic Cerebral palsy, unspecified type ([facility]) Encounter for screening mammogram for breast cancer documented in this encounter Advance Directives Documents on File Type Date Recorded Patient Operations Manager/Coordinator Expl anation Advanced Directive service a kerri default Advanced Directive Advanced Directive Advanced Directive Advanced Directive Advanced Directive Advanced Directive Advanced Directive Advanced Directive"
--- OUTSIDE RECORDS SUMMARY | 2023-05-10 23:02 | External Medical Summary | Summary of Care ---
Author Name Unknown Organization [facility] Address [place] [address] Care Team Providers Care Senior Database Programmer Name Role Phone Rajwinder Lara DO Primary Care Provider + [phone] Reason for Visit * Reason Comments eRx-Medication Refill Encounter Details Date Type Department Care Team Description 08/11/2019 Refill [place] [address] [place] [address] Rajwinder Lara DO [address] [place] [address] [phone] Dyslipidemia, goal LDL below 70 Allergies Active Allergy Reactions Severity Noted Date Comments Penicillins Rash 02/12/2008 documented as of this encounter (statuses as of 08/12/2019) Medications Medication Sig Dispensed Refills Start Date End Date Status CENTRUM SILVER PO TABS 1 tab daily 1 Tab 0 05/25/2012 Active vitamin c (ASCORBIC ACID) 500 MG Tablet Take 500 mg by mouth daily. 0 Active insulin glargine (LANTUS SOLOSTAR) 100 UNIT/ML SOPNIndications:Typ e 2 diabetes mellitus with hemoglobin A1c goal of less than 7.0% ([facility]) INJECT 24 UNITS UNDER THE SKIN [...] of less than 7.0% ([facility]) Inject 1 syringeful once weekly 4 [...] 4 06/11/2019 Active MetFORMIN (GLUCOPHAGE) 1000 MG TabletIndications:T ype [...] 0 08/12/2019 Active atorvaSTATin (LIPITOR) 40 MG TabletIndications:D yslipidemia, goal LDL below 70 TAKE 1 TABLET BY MOUTH EVERY NIGHT AT BEDTIME 90 Tab 0 08/12/2019 Active omeprazole (PRILOSEC) 20 MG CPDR TAKE 1 CAPSULE BY MOUTH ONCE DAILY 90 Cap 3 02/22/2019 08/12/20 19 Discontinu ed(Medicat ion/Dose Changed) cyclobenzaprine (FLEXERIL) 10 MG Tablet TAKE 1 TABLET BY MOUTH AT BEDTIME 30 Tab 0 06/06/2019 08/11/20 19 Discontinu ed(Refill) documented as of this encounter (statuses as of 08/12/2019) Active Problems Problem Noted Date Thrombocytopenia 05/02/2019 [...] as of this encounter (statuses as of 08/12/2019) Resolved Problems Problem Noted Date Resolved Date [...] pain 01/24/2012 01/17/2017 Genetic Sleep Disorder Research Other*[id number] 05/13/2011 04/07/2016 Obstructive sleep apnea 01/18/2011 12/27/19 [...] as of this encounter (statuses as of 08/12/2019) Immunizations Name Administration Dates Next Due HEP [...] Telephone Encounter - Rajwinder Lara DO - 08/12/2019 5:47 PM EST Signed Prescriptions: Disp Refills cyclobenzaprine (FLEXERIL) 10 MG Tablet 30 Tab 0 Sig: TAKE 1 TABLET BY MOUTH AT BEDTIME Authorizing Provider: RAJWINDER LARA atorvaSTATin (LIPITOR) 40 MG Tablet 90 Tab 0 Sig: TAKE 1 TABLET BY MOUTH EVERY NIGHT AT BEDTIMEAuthorizing Provider: RAJWINDER LARA--- * Telephone Encounter - Rajwinder Lara DO - 08/12/2019 5:47 PM EST Signed Prescriptions: Disp Refills cyclobenzaprine (FLEXERIL) 10 MG Tablet 30 Tab 0 Sig: TAKE 1 TABLET BY MOUTH AT BEDTIME Authorizing Provider: RAJWINDER LARA atorvaSTATin (LIPITOR) 40 MG Tablet 90 Tab 0 Sig: TAKE 1 TABLET BY MOUTH EVERY NIGHT AT BEDTIME Authorizing Provider: RAJWINDER LARA --- * Telephone Encounter - Shahnaz Marin [facility] - 08/12/2019 2:24 PM EST Pending Prescriptions: Disp Refills cyclobenzaprine (FLEXERIL) 10 MG Tablet [*30 Tab 0 Sig: TAKE 1 TABLET BY MOUTH AT BEDTIME atorvaSTATin (LIPITOR) 40 MG Tablet [Phar*90 Tab 0 Sig: TAKE 1 TABLET BY MOUTH EVERY NIGHT AT BEDTIME * Telephone Encounter - Shahnaz Marin [facility] - 08/12/2019 2:22 PM EST Atorvastatin was D/C on 04/18/19 by Kenya Moreland PA-C at alf visit. Unable to find documentation in OV note as to why medication was D/C. Per adherence tracker medication was last filled on 06/05/19 for a 90 day supply. Please advise and approve if appropriate. Thank You Shahnaz Marin, PharmD Staff Pharmacist Refill Call Center 08/12/2019, 2:24 PM * Telephone Encounter - Vicki rAmenta, sample weaver - 08/12/2019 9:03 AM EST Prescription for Atorvastatin was d/c 04/18/2019, reason: NONE. Please review and approve if appropriate. Pending Prescriptions: Disp Refills cyclobenzaprine (FLEXERIL) 10 MG Tablet [*30 Tab 0 Sig: TAKE 1 TABLET BY MOUTH AT BEDTIME atorvaSTATin (LIPITOR) 40 MG Tablet [Phar*90 Tab 0 Sig: TAKE 1 TABLET BY MOUTH EVERY NIGHT AT BEDTIME Last Office Visit: 07/18/2019 Next Office Visit: 08/12/2019 Scheduled Provider(s): Rajwinder Lara, DO If no future appointments scheduled, and last appointment is greater than a year ago, please schedule patient for a follow-up appointment Last date the medication was ordered: 02/22/2019,06/06/2019 Pharmacy: [facility] [id number] Is this request for a controlled [...] Office Visit Gastroenterology Lyssa Stout CRNP [address] [facility] [place] [address] 09/02/2019 Imaging Radiology 10/29/2019 Nutrition Services Gastroenterology Melissa Omalley RDN [address] [place] [address] [phone] 11/18/2019 Office Visit Family Medicine Rajwinder Lara, DO [address] [facility] [id number] 12/31/2019 Office Visit Gynecology Obstetrics Rosaura Perez, CNM [address] [facility] [place] [address] [phone] Health Maintenance Due Date Last Done Comments [...] on File Type Date Recorded Patient Supervisor Microwave Expl anation Advanced Directive service a kerri default Advanced Directive Advanced Directive Advanced Directive Advanced Directive Advanced Directive Advanced Directive Advanced Directive Advanced Directive
--- OUTSIDE RECORDS SUMMARY | 2023-05-10 23:02 | External Medical Summary | Summary of Care ---
Author Name Unknown Organization [place] [address] Care Team Providers Care Well Head Pumper Name Role Phone JohnbrianRajwinder thacker Primary Care Provider [phone] Reason for Visit * Reason Comments Re-Check NAFLD Encounter Details Date Type Department Care Team Description 08/26/2019 Office Visit Gastroenterology, [facility] [address] [facility] [place] [address] Lyssa Stout CRNP [address] [facility] [place] [address] [phone] Gastroesophageal reflux disease, esophagitis presence not specified*; NAFLD (nonalcoholic fatty liver disease); Other cirrhosis of liver (HCC) Allergies Active Allergy Reactions Severity Noted Date Comments Penicillins Rash 02/12/2008 documented as of this encounter (statuses as of 08/26/2019) Medications Medication Sig Dispensed Refills Start Date End Date Status CENTRUM SILVER PO TABS 1 tab daily 1 Tab 0 2 Active vitamin c (ASCORBIC ACID) 500 MG Tablet Take 500 mg by mouth daily. 0 Active insulin glargine (LANTUS SOLOSTAR) 100 UNIT/ML SOPNIndications:Typ e 2 diabetes mellitus with hemoglobin A1c goal of less than 7.0% ([facility]) INJECT 24 UNITS UNDER THE SKIN AT [...] BEHAVIORAL HEALTH) Inject 1 syringeful once weekly 4 Pre-filled [...] than 7.0% ([facility]) TAKE 1 TABLET BY MOUTH TWICE DAILY [...] DAILY DIRECTED 16 g 5 9 Active cyclobenzaprine (FLEXERIL) 10 MG Tablet TAKE 1 TABLET BY MOUTH AT BEDTIME 30 Tab 0 9 Active atorvaSTATin (LIPITOR) 40 MG TabletIndications:D yslipidemia, goal LDL below 70 TAKE 1 TABLET BY MOUTH EVERY NIGHT AT BEDTIME 90 Tab 0 9 Active pantoprazole (PROTONIX) 20 MG TBECIndications:Gas troesophageal reflux disease, esophagitis presence not specified,NAFLD (nonalcoholic fatty liver disease),Other cirrhosis of liver (HCC) Take 2 Tabs by mouth daily. 30 Tab 5 9 Active pantoprazole (PROTONIX) 20 MG TBECIndications:Gas troesophageal reflux disease, esophagitis presence not specified,NAFLD (nonalcoholic fatty liver disease),Other cirrhosis of liver (HCC) Take 1 Tab by mouth daily. 30 Tab 5 9 08/26/20 19 Discontinued documented as of this encounter (statuses as of 08/26/2019) Active Problems Problem Noted Date Thrombocytopenia 05/02/2019 [...] as of this encounter (statuses as of 08/26/2019) Resolved Problems Problem Noted Date Resolved Date [...] pain 01/24/2012 01/17/2017 Genetic Sleep Disorder Research Other*[id number] 05/13/2011 04/07/2016 Obstructive sleep apnea 01/18/2011 12/27/19 [...] as of this encounter (statuses as of 08/26/2019) Immunizations Name Administration Dates Next Due HEP [...] Sign Reading Time Taken Comments Blood Pressure 120/54 08/26/2019 2:01 PM EST Pulse 60 08/26/2019 2:01 PM EST Temperature 36 C (96.8 F) 08/26/2019 2:01 PM EST Respiratory Rate - - Oxygen Saturation - - Inhaled Oxygen Concentration - - Weight - - Height - - Body Mass Index - - documented in this encounter Progress Notes * Lyssa Stout CRNP - 08/26/2019 2:06 PM EST DATE OF SERVICE: 08/26/19 CC: F/U NALFD cirrhosis HPI: 09/20/16 - [...] for f/u cirrhosis. She had been to [facility] ED twice within last week (11/17, 11/19) [...] has PCP appt next week and upcoming [facility] appt for eval of possible uterine bleeding. [...] month while walking w walker. Went to [facility] ED on 07/11 for kidney stones. Denies any fever, chills, CP, SOB, abd pain, distension, jaundice. [place] she lost some weight. Noted less edema on legs. 09/24/18: Pt here for f/u. Was at [facility] but discharged. Notes in ED visit recently 08/24/18 and by PCP notes that she is having some stressors at home, preferred when she was placedin skilled nursing where she's getting food and meds regularly. [...] dark tarry stools. 08/26/19: Pt went to [facility] ED on 08/04/19 for abd, chest pain. Labs, EKG, CXR CT abd scan reviewed -unrevealing. She denies increased swelling on legs, abd areas. Bowel move every other day, black incolon but not tarry. No signs of worsening anemia on recent [facility] labs. She denies any n/v, CP, SOB today. She does notice increased indigestion, on Protonix 20mg daily . Past Medical History: Diagnosis Date Chronic hypoxemic [...] bx, repeat 10 yrs/[facility] DENTAL SURGERY PROCEDURE NEC wisdom teeth x 4 DILATION AND CURETTAGE (D&C) EGD, FLEXIBLE, DIAGNOSTIC 10/04/2016 gastritis/[facility] EGD, FLEXIBLE, DIAGNOSTIC 01/11/2018 eso varices, retained food, repeat 1 yr/[facility] PELVIS/HIP JOINT SURGERY NEC teenager aid in walking REPAIR/GRAFT ACHILLES TENDON age 40 aid in walking Social History Tobacco Use Smoking status: Never Smoker Smokeless tobacco: Never Used Substance Use Topics Alcohol use: No Drug use: No Comment: too much soda Review of patient's allergies indicates: Allergen Reactions Pcn [Penicillins] Rash Current Outpatient Medications Medication Sig Dispense Refill atorvaSTATin (LIPITOR) 40 MG Tablet TAKE 1 TABLET BY MOUTH EVERY NIGHT AT BEDTIME 90 Tab 0 cyclobenzaprine (FLEXERIL) 10 MG Tablet TAKE 1 TABLET BY MOUTH AT BEDTIME 30 Tab 0 pantoprazole (PROTONIX) 20 MG TBEC Take 1 Tab by mouth daily. 30 Tab 5 fluticasone (FLONASE) 50 MCG/ACT nasal [...] BY MOUTH TWICE DAILY 60 Tab 4 escitalopram (LEXAPRO) 20 MG Tablet TAKE 1 [...] above; All other findings negative. Filed Vitals: 08/26/19 1401 BP: 120/54 Pulse: 60 Temp: 36 C (96.8 F) GENERAL: Well developed and well nourished, [...] female w NALFD Cirrhosis. MELD 6. - Increase Protonix to 40mg daily given indigestion, GERD control. - Obtain MELD labs q3-6months. Recent CBC, CMP obtained at [facility] ED visit reviewed. - Last EGD: 02/22/1919 Grade II non bleeding varices, portal HTN. She is on Nadolol 40mg daily, HR 60 - Last Colonoscopy: 2017 - int hemorrhoids, due for repeat in 10 yrs. - Hep A immunity: completed series - Hep B immunity: completed series - HCC screening [id number]: unable to obtain AFP due to lack of insurance coverage. RUQ u/s on 06/12/19 w/o signs of liver mass - Pancreas head lesion, evaluated via EUS in 02/22/19, too small (5 x 10mm) for aspiration but likely IPMN. Will plan for MRI eval in 1 yr's time. - Encouraged to abstain from ETOH, illicit drugs, APAP no more than 2g daily - Low salt (2g) daily - Advised good control of blood sugars RTC: 3months; or sooner prn. ZAK Schreiber GastroenterologyChau Fernandes documented in this encounter Nursing Notes * Sabine Valencia LPN - 08/26/2019 2:04 PM EST Patient identified by name and date of . Chief Complaint Patient presents with Re-Check NAFLD Symptoms: headache and abdominal pain Bowel Movement Frequency: every other day Bowel Movement Consistency: formed Straining: no Rectal Pain: no Blood in Stool: No documented in this encounter Plan of Treatment Upcoming Encounters Date Type Specialty Care Team Description 09/02/2019 Imaging Radiology 10/29/2019 Nutrition Services Gastroenterology Melissa Omalley, SAMANTHA [address] [place] [address] [phone] 11/18/2019 Office Visit Family Medicine Rajwinder Carter DO [address] [facility] [place] [id number] 11/26/2019 Office Visit Gastroenterology Lyssa Stout CRNP [address] [place] [address] 12/31/2019 Office Visit Gynecology Obstetrics Rosaura Perez CNM [address] [place] [address] Health Maintenance Due Date Last Done Comments Zoster Vaccines (2 of 3) 02/03/2016 12/09/2015 BREAST CANCER SCREENING DISCUSSION YEARLY AGES 40-75 [...] Diagnosis Gastroesophageal reflux disease, esophagitis presence not specified- Primary NAFLD (nonalcoholic fatty liver disease) Other chronic nonalcoholic liver disease Other cirrhosis of liver (HCC) documented in this encounter Advance Directives Documents on File Type Date Recorded Patient Child Care Giver Expl anation Advanced Directive service a kerri default Advanced Directive Advanced Directive Advanced Directive Advanced Directive Advanced Directive Advanced Directive Advanced Directive Advanced Directive
--- OUTSIDE RECORDS SUMMARY | 2023-05-10 23:02 | External Medical Summary | Summary of Care ---
Author Name Unknown Organization [facility] [place] [address] Care Team Providers Care It Security Analyst Name Role Phone Rajwinder Lara DO Primary Care Provider [phone] Reason for Visit * Reason Comments eRx-Medication Refill Medication Refill Encounter Details Date Type Department Care Team Description 09/11/2019 Telephone [facility] [address] [place] [address] Rajwinder Lara DO [address] [place], [place] [id number] eRx-Medication Refill; Medication Refill Allergies Active Allergy [...] ([facility]) INJECT 24 UNITS UNDER THE SKIN [...] ([facility]) TAKE 1 TABLET BY MOUTH [...] pain 01/24/2012 01/17/2017 Genetic Sleep Disorder Research Other*[id number] 05/13/2011 04/07/2016 Obstructive sleep apnea 01/18/2011 12/27/19 [...] encounter Miscellaneous Notes * Telephone Encounter - Ava Felix CPhT - 09/13/2019 11:05 AM EST Pharmacy stating patient was taking oxybutynin (DITROPAN) 5 MG Tablet 3 times a day. Please clarify Pharmacy phone: [phone] Thank you, Ava Felix [facility] 09/13/2019, 11:06 AM * Telephone Encounter - Rajwinder Lara DO - 09/13/2019 9:35 AM EST Signed Prescriptions: Disp Refills furosemide (LASIX) 20 MG Tablet 30 Tab 4 Sig: TAKE 1 TABLET BY MOUTH once daily NEEDED FoR EDEMAAuthorizing Provider: RAJWINDER LARA cyclobenzaprine (FLEXERIL) 10 MG Tablet 30 Tab 0 Sig: Take 1 Tab by mouth at bedtime.Authorizing Provider: RAJWINDER LARAxybutynin (DITROPAN) 5 MG Tablet 60 Tab 4 [...] * Telephone Encounter - Pura Abernathy [facility] - 09/12/2019 1:28 PM EST Pending Prescriptions: [...] day. * Telephone Encounter - Pura Abernathy [facility] - 09/12/2019 1:28 PM EST Pharmacists cannot authorize refills for meds listed as "historical" in chart. Flexeril and Ditropan are off protocol. Please approve if appropriate. Thank You, Pura Abernathy [facility] Clinical Pharmacist Telepharmacy 09/12/2019, 1:28 PM * Telephone Encounter - Imelda Duque [facility] - 09/12/2019 8:46 AM EST Medication(s) [...] [address] [place] [address] 11/18/2019 Office Visit Family Medicine [facility] [address] [facility] [address] 11/26/2019 Office Visit Gastroenterology Lyssa Stout CRNP [address] [place] [address] [phone] 12/31/2019 Office Visit Gynecology Obstetrics Rosaura Perez [...] Documents on File Type Date Recorded Patient Margin Trimmer Expl anation Advanced Directive service a kerri default Advanced Directive Advanced Directive Advanced Directive Advanced Directive Advanced Directive Advanced Directive Advanced Directive Advanced Directive
--- OUTSIDE RECORDS SUMMARY | 2023-05-10 23:03 | External Medical Summary | Summary of Care ---
Author Name Unknown Organization [place] [address] Care Team Providers Care Pattern Puncher Name Role Phone Rajwinder Carter Primary Care Provider [phone] Reason for Visit * Reason Comments Order Request Encounter Details Date Type Department Care Team Description 08/05/2019 Telephone Ancillary Department, [address] [id number] Rosio Hunter RN Order Request Allergies Active Allergy Reactions Severity Noted Date Comments Penicillins Rash 02/12/2008 documented as of this encounter (statuses as of 08/06/2019) Medications Medication Sig Dispensed Refills Start Date [...] BED TIME 15 mL 3 02/22/2019 Active omeprazole (PRILOSEC) 20 MG CPDR TAKE 1 CAPSULE BY MOUTH ONCE DAILY 90 Cap 3 02/22/2019 Active ferrous sulfate (FEOSOL) 325 [...] 40mg daily, Reported on 06/06/2019 12:38 PM cyclobenzaprine (FLEXERIL) 10 MG Tablet TAKE 1 TABLET BY MOUTH AT BEDTIME 30 Tab 0 06/06/2019 Active levothyroxine (LEVOXYL) 150 MCG TabletIndications:Ac quired [...] DAILY DIRECTED 16 g 5 08/01/2019 Active documented as of this encounter (statuses as of 08/06/2019) Active Problems Problem Noted Date Thrombocytopenia 05/02/2019 [...] as of this encounter (statuses as of 08/06/2019) Resolved Problems Problem Noted Date Resolved Date [...] pain 01/24/2012 01/17/2017 Genetic Sleep Disorder Research Other*[id number] 05/13/2011 04/07/2016 Obstructive sleep apnea 01/18/2011 12/27/19 [...] as of this encounter (statuses as of 08/06/2019) Immunizations Name Administration Dates Next Due HEP [...] Telephone Encounter - Rosio Hunter RN - 08/06/2019 8:05 AM EST Order faxed to [facility]. * Telephone Encounter - Rajwinder Carter DO - 08/05/2019 4:26 PM EST Order signed. * Telephone Encounter - Rosio Hunter RN - 08/05/2019 4:00 PM EST Svetlana lift pended. documented in this encounter Plan of Treatment Upcoming Encounters Date Type Specialty Care Team Description 08/12/2019 Office Visit Family Rajwinder Lopez DO [address] [facility] [place] [address] [phone] 08/26/2019 Office Visit Gastroenterology Lyssa Stout CRNP [address] [facility] [place] [address] [phone] 09/02/2019 Imaging Radiology 10/29/2019 Nutrition Services Gastroenterology Melissa Omalley RDN [address] [place] [address] [phone] 11/18/2019 Office Visit Family Medicine [facility]winder Carter DO [address] [facility] [address] [phone] 12/31/2019 Office Visit Gynecology Obstetrics Rosaura Perez, CN [address] [facility] [place] [address] [phone] Health Maintenance Due Date Last Done Comments [...] on File Type Date Recorded Patient Health Concierge Expl anation Advanced Directive service a kerri default Advanced Directive Advanced Directive Advanced Directive Advanced Directive Advanced Directive Advanced Directive Advanced Directive Advanced Directive
--- OUTSIDE RECORDS SUMMARY | 2023-05-10 23:03 | External Medical Summary | Summary of Care ---
Author Name Unknown Organization [facility] Address [place] [address] Care Team Providers Care Pit Hoist Operator Name Role Phone Rajwinder Carter DO Primary Care Provider [phone] Reason for Visit * Reason Comments Advice Encounter Details Date Type Department Care Team Description 07/29/2019 Telephone [facility] Vern Zamora [address] [place] [id number] Kenya Moreland PA-C [address] [place] [address] Advice Allergies Active Allergy Reactions Severity Noted Date Comments Penicillins Rash 02/12/2008 documented as of this encounter (statuses as of 08/05/2019) Medications Medication Sig Dispensed Refills Start Date [...] [facility]) INJECT 24 UNITS UNDER THE SKIN [...] 0 06/06/2019 Active levothyroxine (LEVOXYL) 150 MCG TabletIndications:A cquired [...] - [facility]) TAKE 1 TABLET BY MOUTH TWICE DAILY WITH FOOD 180 Tab 3 07/04/2019 Active albuterol HFA (PROAIR HFA) 108 (90 BASE) MCG/ACT inhaler Inhale 2 Puffs by mouth every 4 hours as needed for Cough or Wheezing. With spacer 1 Inhaler 1 07/06/2019 Active fluticasone (FLONASE) 50 MCG/ACT nasal sprayIndications:Si nus congestion Administer 2 Sprays into each nostril daily. 1 Inhaler 5 01/09/2019 07/31/20 19 Discontinu ed(Refill) documented as of this encounter (statuses as of 08/05/2019) Active Problems Problem Noted Date Thrombocytopenia 05/02/2019 [...] as of this encounter (statuses as of 08/05/2019) Resolved Problems Problem Noted Date Resolved Date [...] pain 01/24/2012 01/17/2017 Genetic Sleep Disorder Research Other*[id number] 05/13/2011 04/07/2016 Obstructive sleep apnea 01/18/2011 12/27/19 [...] as of this encounter (statuses as of 08/05/2019) Immunizations Name Administration Dates Next Due HEP [...] encounter Miscellaneous Notes * Addendum Note - Rosio Hunter RN - 08/05/2019 3:57 PM EST Addended by: ROSIO HUNTER on: 08/05/2019 03:57 PM Modules accepted: Orders * Addendum Note - Rosio Hunter RN - 08/05/2019 3:22 PM EST Addended by: ROSIO HUNTER on: 08/05/2019 03:22 PM Modules accepted: Orders * Telephone Encounter - Michaelle Lindquist LPN - 08/05/2019 10:11 AM EST Spoke with Haleigh at [facility] she states that it is a Svetlana left. The reason for a new order is the order needs signed by a or . Order needs back dated if possible 04/17/19 * Telephone Encounter - Rajwinder Carter DO - 08/02/2019 5:06 PM EST What type of lift is needed? Is it a Svetlana lift? What exactly do they need? * Telephone Encounter - Kenya Moreland PA-C - 08/02/2019 2:04 PM EST Pt is no longer resident at [facility] and if requires re authorization for this, it would need to come from PCP as we are no longer following the patient here. I am not familiar with her current status as she was d/c'ed from our care here in april. * Telephone Encounter - Susan Rosales RN - 08/01/2019 3:38 PM EST Miss can you do this? * Telephone Encounter - Rosaura Reilly OSA - 08/01/2019 2:50 PM EST Calling to follow-up. Needs this to be signed as soon as possible as the auth is about to . * Telephone Encounter - Shahnaz Nunez OSA - 07/30/2019 12:57 PM EST An order was requested for this patient. Name of Requesting Provider: Cady Flores [facility] Order Requested: Lift Diagnosis/Reason for Request: ambulatory dysfunction Does the order need to be faxed somewhere? If so, where?: [facility] Fax Number, if applicable: [phone] Call Back Number: [phone] Cady from [facility] calling. She states that order there are needing co- signed is for a lift. At time of call there were no orders in patient's chart dated 04/17/19 for a lift. A lift is mentioned in Kenya Moreland PA-C half-way visit note, but no order is attached to note. A lift is also mentioned in Dr. Jordan's hospital discharge note from 05/02/19, but states that patient has a svetlana lift. If order is appropriate please fax to Cady Flores * Telephone Encounter - Dominique Franco OSA - 07/30/2019 11:09 AM EST Please forward to Dr Manriquez. Thank you. * Telephone Encounter - Kenya Moreland PA-C - 07/30/2019 10:16 AM EST Pt is followed by Dr. Carter * Telephone Encounter - Lidia Betancourt OSA - 07/29/2019 4:02 PM EST Cady calling again stating she needs and MD or a DO to cosign. Cady saw that Dr. Jarquin is Kenya Moreland's overseeing provider. Please co sign or sign order and refax * Telephone Encounter - Dominique Franco OSA - 07/29/2019 3:43 PM EST Cady called from [facility]. She is asking for an order for a patient lift from 04-17-2019 from Kenya Moreland be cosigned by a doctor and forwarded to her at [phone]. Please call Cady or fax the cosigned order to her. Thank you. documented in this encounter Plan of Treatment Upcoming Encounters Date Type Specialty Care Team Description 08/12/2019 Office Visit Family Medicine Rajwinder Carter DO [address] [facility] [place] [id number] 08/26/2019 Office Visit Gastroenterology Lyssa Stout CRNP [address] [facility] [place] [address] [phone] 09/02/2019 Imaging Radiology 10/29/2019 Nutrition Services Gastroenterology Melissa Omalley RDN [address] [place] [address] [phone] 11/18/2019 Office Visit Family Medicine [facility] [address] [facility] [address] [phone] 12/31/2019 Office Visit Gynecology Obstetrics Rosaura Perez, CNM [address] [facility] [place] [address] [phone] Health Maintenance Due Date Last Done Comments [...] Documents on File Type Date Recorded Patient Christmas Bell Ringer Expl anation Advanced Directive service a kerri default Advanced Directive Advanced Directive Advanced Directive Advanced Directive Advanced Directive Advanced Directive Advanced Directive Advanced Directive
--- OUTSIDE RECORDS SUMMARY | 2023-05-10 23:03 | External Medical Summary | Summary of Care ---
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 * Addendum Note - Rosio Hunter RN - 08/05/2019 3:58 PM EST Addended by: ROSIO HUNTER on: 08/05/2019 03:58 PM Modules accepted: Orders * Addendum Note [...] 10:11 AM EST Spoke with Haleigh at [facility] she states that it is a Svetlana left. The reason for a new order is the order needs signed by a MD or DO. Order needs back dated if possible 04/17/19 * Telephone Encounter - Rajwinder Carter DO - 08/02/2019 5:06 PM EST What type of lift is needed? Is it a Svetlana lift? What exactly do they need? * Telephone Encounter - Kenya Moreland PA-C - 08/02/2019 2:04 PM EST Pt is no longer resident at [facility] and if requires re authorization for this, [...] patient. Name of Requesting Provider: [facility] Order Requested: Lift Diagnosis/Reason for Request: ambulatory dysfunction Does the order need to be faxed somewhere? If so, where?: [facility] Fax Number, if applicable: [phone] Call Back Number: [phone] Cady from [facility] calling. She states that order there are needing co- signed is for a lift. At time of call there were no orders in patient's chart dated 04/17/19 for a lift. A lift is mentioned in Kenya Moreland PA-C alf visit note, but no order is attached to note. A lift is also mentioned in Dr. Jordan's hospital discharge note from 05/02/19, but states that patient has a svetlana lift. If order is appropriate please fax to Cady at [facility] * Telephone Encounter - Dominique Franco OSA [...] 07/29/2019 3:43 PM EST Cady called from [facility]. She is asking for an order for a patient lift from 04-17-2019 from Kenya Moreland be cosigned by a doctor and forwarded to her at [phone]. Please call Cady or fax the cosigned order to her. Thank you. documented in this encounter Plan of Treatment Upcoming Encounters Date Type Specialty Care Team Description 08/12/2019 Office Visit Family Medicine Rajwinder Carter, DO [address] [facility] [place] [address] 08/26/2019 Office Visit Gastroenterology Lyssa Stout CRNP [address] [facility] [place] [address] 09/02/2019 Imaging Radiology 10/29/2019 Nutrition Services Gastroenterology Melissa Omalley, SAMANTHA [address] [place] [address] 11/18/2019 Office Visit Family Rajwinder Lopez DO [address] [place] [address] 12/31/2019 Office Visit Gynecology Obstetrics Rosaura Perez CNM [address] [facility] [place] [address] Health Maintenance Due Date [...]
--- OUTSIDE RECORDS SUMMARY | 2023-05-10 23:03 | External Medical Summary | Summary of Care ---
Author Name Unknown Organization [facility] Address [place] [address] Care Team Providers Care Steam Trap Worker Name Role Phone Rajwinder Carter DO Primary Care Provider [phone] Reason for Visit * Reason Comments Emergency Department Follow-Up Encounter Details Date Type Department Care Team Description 08/05/2019 Telephone [facility] [address], [place] [id number] Rajwinder Carter DO [address], [place] [id number] Emergency Department Follow-Up Allergies Active Allergy Reactions [...] 7.0% ([facility]) Inject 1 syringeful once weekly 4 [...] pain 01/24/2012 01/17/2017 Genetic Sleep Disorder Research Other*[id number] 05/13/2011 04/07/2016 Obstructive sleep apnea 01/18/2011 12/27/19 [...] encounter Miscellaneous Notes * Telephone Encounter - Victor M Meraz LPN - 08/05/2019 10:48 AM EST Pt seen in the [facility] ER last night, 08/04 with chest pain. ER follow up scheduled. * Telephone Encounter - Emmy Palumbo OSA - 08/05/2019 10:47 AM EST Reason for patient's call: [facility] ER follow up Chest pain 08/04/19 Caller was transferred to Victor M at the nurse line. documented in this encounter Plan of Treatment Upcoming Encounters Date Type Specialty Care Team Description 08/12/2019 Office Visit Family Medicine Rajwinder Carter DO [address] [facility] [place] [id number] 08/26/2019 Office Visit Gastroenterology Lyssa Stout CRNP 132 [facility] [place] [address] 09/02/2019 Imaging Radiology 10/29/2019 Nutrition Services Gastroenterology Melissa Omalley RDN [address] [place] [address] [phone] 11/18/2019 Office Visit Family Medicine Rajwinder Carter, DO [address] [facility], [place] [id number] 12/31/2019 Office Visit Gynecology Obstetrics Rosaura Perez, CN 132 [facility] [place] [address] [phone] Health Maintenance Due Date Last Done Comments [...] on File Type Date Recorded Patient Process Development Chemist Expl anation Advanced Directive service a kerri default Advanced Directive Advanced Directive Advanced Directive Advanced Directive Advanced Directive Advanced Directive Advanced Directive Advanced Directive
--- OUTSIDE RECORDS SUMMARY | 2023-05-10 23:03 | External Medical Summary | Summary of Care ---
Author Name Unknown Organization [place] [address] Care Team Providers Care Interface Analyst Name Role Phone Rajwinder Carter Primary Care Provider [phone] Encounter Details Date Type Department Care Team Description 08/04/2019 Scan Encounter Unspecified Department <No scans attached> [...] pain 01/24/2012 01/17/2017 Genetic Sleep Disorder Research Other*[id number] 05/13/2011 04/07/2016 Obstructive sleep apnea 01/18/2011 12/27/19 [...] Family Medicine Rajwinder Carter, DO [address] [place] [id number] 08/26/2019 Office Visit Gastroenterology Lyssa Stout CRNP 132 [facility] [place] [address] [phone] 09/02/2019 Imaging Radiology 10/29/2019 Nutrition Services Gastroenterology Melissa Omalley, SAMANTHA [address] [facility] [place] [address] [phone] 11/18/2019 Office Visit Family Medicine Rajwinder Carter DO [address] [facility] [place] [address] 12/31/2019 Office Visit Gynecology Obstetrics Rosaura Perez CNM [address] [facility] [place] [address] Health Maintenance Due Date [...] File Type Date Recorded Patient Greeting Card Editor Expl anation Advanced Directive service a kerri default Advanced Directive Advanced Directive Advanced Directive Advanced Directive Advanced Directive Advanced Directive Advanced Directive Advanced Directive
--- OUTSIDE RECORDS SUMMARY | 2023-05-10 23:03 | External Medical Summary | Summary of Care ---
Author Name Unknown Organization [facility] Address [place] [address] Care Team Providers Care Patent Chemist Name Role Phone Rajwinder Carter DO Primary Care Provider [phone] Reason for Visit * Reason Comments Advice Encounter Details Date Type Department Care Team Description 07/29/2019 Telephone [facility] Vern Zamora [address] [place] [id number] Kenya Moreland PA-C [address] [place] [...] pain 01/24/2012 01/17/2017 Genetic Sleep Disorder Research Other*[id number] 05/13/2011 04/07/2016 Obstructive sleep apnea 01/18/2011 12/27/19 [...] 08/05/2019 10:11 AM EST Spoke with Haleigh Polanco she states that it is a Svetlana left. The reason for a new order is the order needs signed by a or DO. Order needs back dated if possible 04/17/19 * Telephone Encounter - Rajwinder Carter DO - 08/02/2019 5:06 PM EST What type of lift is needed? Is it a Svetlana lift? What exactly do they need? * Telephone Encounter - Kenya Moreland PA-C - 08/02/2019 2:04 PM EST Pt is no longer resident at [facility] and if requires re authorization [...] this patient. [facility] Order Requested: Lift Diagnosis/Reason for Request: ambulatory dysfunction Does the order need to be faxed somewhere? If so, where?: [facility] Fax Number, if applicable: [phone] Call Back Number: [phone] Cady from [facility] calling. She states that order there are [...] is appropriate please fax to Cady at [place] * Telephone Encounter - Dominique Franco, THAD - 07/30/2019 11:09 AM EST Please forward to Dr Manriquez. Thank you. * Telephone Encounter - eKnya Moreland PA-C - 07/30/2019 10:16 AM EST Pt is followed by Dr. Carter * Telephone Encounter - Lidia Betancourt OSA - 07/29/2019 4:02 PM EST Cady calling again stating she needs and or a DO to cosign. Cady saw that Dr. Jarquin is Kenya Moreland's overseeing provider. Please co sign or sign order and refax * Telephone Encounter - Dominique Franco, THAD - 07/29/2019 3:43 PM EST Cady called from [facility]. She is asking for an order for a patient lift from 04-17-2019 from Kenya Moreland be cosigned by a doctor and forwarded to her at [phone]. Please call Cady or fax the cosigned order to her. Thank you. documented in this encounter Plan of Treatment Upcoming Encounters Date Type Specialty Care Team Description 08/12/2019 Office Visit Family Medicine [facility]inder [facility] DO [address] [facility] [address] [phone] 08/26/2019 Office Visit Gastroenterology Lyssa Stout CRNP 132 [facility] [place] [address] [phone] 09/02/2019 Imaging Radiology 10/29/2019 Nutrition Services Gastroenterology Melissa Omalley, [place] [address] [place] [address] 11/18/2019 Office Visit Family Medicine [facility]winder Carter DO [address] [facility] [id number] 12/31/2019 Office Visit Gynecology Obstetrics Rosauar Perez, CNM [address] [employer] [place] [address] [phone] Health Maintenance Due Date Last Done Comments [...] on File Type Date Recorded Patient Can Feeder Expl anation Advanced Directive service a kerri default Advanced Directive Advanced Directive Advanced Directive Advanced Directive Advanced Directive Advanced Directive Advanced Directive Advanced Directive
--- OUTSIDE RECORDS SUMMARY | 2023-05-10 23:03 | External Medical Summary | Summary of Care ---
Author Name Unknown Organization [facility] Address [place] [address] Care Team Providers Care [id number] Armor Crewman Name Role Phone Rajwinder Carter DO Primary Care Provider [phone] Reason for Visit * Reason Comments Hospital Follow-Up was at [facility] for ches t and abdominal pain. Still having the pain. Encounter Details Date Type Department Care Team Description 08/12/2019 Office Visit [place] [address] [place] [address] Rajwinder Carter DO [address] [place] [address] [phone] Gastroesophageal reflux disease, esophagitis presence not specified*; [...] 7.0% ([facility]) Inject 1 syringeful once weekly 4 Pre-filled [...] 7.0% ([facility]) TAKE 1 TABLET BY MOUTH TWICE DAILY [...] 5 08/01/2019 Active pantoprazole (PROTONIX) 20 MG TBECIndications:Gas troesophageal reflux disease, esophagitis presence not specified,NAFLD (nonalcoholic fatty liver disease),Other cirrhosis of liver (HCC) Take 1 Tab by mouth daily. 30 Tab 5 08/12/2019 Active omeprazole (PRILOSEC) 20 MG CPDR TAKE 1 CAPSULE BY MOUTH ONCE DAILY 90 Cap 3 02/22/2019 08/12/20 19 Discontinu ed(Medicat ion/Dose Changed) documented as of [...] pain 01/24/2012 01/17/2017 Genetic Sleep Disorder Research Other*[id number] 05/13/2011 04/07/2016 Obstructive sleep apnea 01/18/2011 12/27/19 [...] Sign Reading Time Taken Comments Blood Pressure 124/60 08/12/2019 2:34 PM EST Pulse 66 08/12/2019 2:34 PM EST Temperature 36.7 C (98 F) 08/12/2019 2:34 PM EST Respiratory Rate 18 08/12/2019 2:34 PM EST Oxygen Saturation - - Inhaled Oxygen Concentration - - Weight - - Height - - Body Mass Index - - documented in this encounter Progress Notes * Rajwinder Carter DO - 08/12/2019 2:32 PM EST SUBJECTIVE: Chief Complaint Patient presents with Hospital Follow-Up was at [facility] for chest and abdominal pain. Still having the pain. HPI: Shaina Bustos is a 64 year old female who presents today for ED follow-up. Pt was seen at [facility] for abdominal and chest pain. She had CT that showed a non- obstructing stone and known cirrhosis. She cannot say what brings it on. She has no idea what her medications are. She notes that it may be 10 minutes of pain. She cannot say if anything makes it better or worse. She does quite a bit of burping and belching. PHM: Patient Active Problem List Diagnosis Code Edema R60.9 Venous insufficiency I87.2 Spinal stenosis of lumbar region without neurogenic claudication M48.061 Cerebral palsy ([facility]) G80.9 HTN, goal below 140/90 I10 Chronic [...] 7.0% ([facility]) E11.9 Vitamin D deficiency E55.9 Restrictive lung disease J98.4 Obesity, morbid (more than 100 lbs over ideal weight or BMI > 40) ([facility]) E66.01 Dyslipidemia, goal LDL below 70 E78.5 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 R39.81 Acquired hypothyroidism E03.9 Chronic pain syndrome G89.4 MEDICATION USE AGREEMENT RC2446 History of Clostridium difficile colitis Z86.19 Cirrhosis of liver ([facility]) K74.60 THAD on CPAP G47.33, Z99.89 Wheelchair dependent Z99.3 History of recent fall Z91.81 Pancytopenia ([facility]) D61.818 Ambulatory dysfunction R26.2 Fall W19.XXXA Sprain of right ankle S93.401A DM type 2 with diabetic peripheral neuropathy ([facility]) E11.42 Insomnia G47.00 Recurrent major depressive disorder, in partial remission ([facility]) F33.41 Impaired mobility and ADLs Z74.09 Generalized weakness R53.1 Gastroesophageal reflux disease K21.9 History of kidney stones Z87.442 History of Achilles tendon repair Z98.890 History of delivery Z98.891 History of MRSA infection Z86.14 History of migraine Z86.69 Anemia D64.9 Fibromyalgia M79.7 Achilles tendinitis, right leg M76.61 DNR (do not resuscitate) Z66 Thrombocytopenia ([facility]) D69.6 Current Outpatient Medications Medication Sig Dispense Refill pantoprazole (PROTONIX) 20 MG TBEC Take 1 [...] bx, repeat 10 yrs/[facility] DENTAL SURGERY PROCEDURE NEC wisdom teeth x 4 DILATION AND CURETTAGE (D&C) EGD, FLEXIBLE, DIAGNOSTIC 10/04/2016 gastritis/[facility] EGD, FLEXIBLE, DIAGNOSTIC 01/11/2018 eso varices, retained food, repeat 1 yr/[facility] PELVIS/HIP JOINT SURGERY NEC teenager aid in [...] chest pain, palpitations and leg swelling. Gastrointestinal: Positive for abdominal pain. Negative for constipation, diarrhea, nausea and vomiting. As per HPI Musculoskeletal: Negative for arthralgias, gait problem and joint swelling. Skin: Negative for color change, pallor and rash. OBJECTIVE: BP 124/60 | Pulse 66 | Temp (Src) 98 (Tympanic) | Resp 18 | Ht [in wheel chair[ (0.000m) | Wt (0.000kg) PHYSICAL EXAM: Physical Exam [...] is no tenderness. There is no guarding. Comments: Unable to elicit any discomfort today. Musculoskeletal: Normal range of motion. General: No tenderness or deformity. Skin: General: Skin is warm and dry. Coloration: Skin is not pale. Findings: No erythema or rash. Neurological: Mental Status: She is alert and oriented to person, place, and time. ASSESSMENT/PLAN: (K21.9) Gastroesophageal reflux disease, esophagitis presence not specified (primary encounter diagnosis) (K76.0) NAFLD (nonalcoholic fatty liver disease) (K74.69) Other cirrhosis of liver (HCC) Plan: pantoprazole (PROTONIX) 20 MG TBEC Pt will stop omeprazole and switch to protonix. Advised to monitor diet. Keep GI appt as scheduled. Follow-up: As needed and for routine care. Rajwinder Carter DO documented in this encounter Nursing Notes * Janett Hurst LPN - 08/12/2019 2:34 PM EST Chief Complaint Patient presents with Hospital Follow-Up was at [facility] for chest and abdominal pain. Still having the pain. documented in this encounter Plan of Treatment Upcoming Encounters Date Type Specialty Care Team Description 08/26/2019 Office Visit Gastroenterology Lyssa Stout CRNP [address] [facility] [place] [address] [phone] 09/02/2019 Imaging Radiology 10/29/2019 Nutrition Services Gastroenterology Melissa Omalley, [place] [address] [place] [address] 11/18/2019 Office Visit Family Medicine [facility]inder [facility] [address] [facility] [id number] 12/31/2019 Office Visit Gynecology Obstetrics Rosaura Perez, CN [address] [facility] [place] [address] [phone] Health Maintenance Due Date Last Done Comments [...] Documents on File Type Date Recorded Patient Polysomnograph Tech Expl anation Advanced Directive service a kerri default Advanced Directive Advanced Directive Advanced Directive Advanced Directive Advanced Directive Advanced Directive Advanced Directive Advanced Directive"
--- OUTSIDE RECORDS SUMMARY | 2023-05-10 23:03 | External Medical Summary | Summary of Care ---
Author Name Unknown Organization [facility] Address [place] [address] Care Team Providers Care Quality Audit Representative Name Role Phone Rajwinder Carter DO Primary Care Provider [phone] Reason for Visit * Reason Comments Advice Encounter Details Date Type Department Care Team Description 07/29/2019 Telephone [facility] Vern Zamora [address] [place] [id number] Kenya Moreland PA-C [address] [place] [...] than 7.0% ([facility]) INJECT 24 UNITS UNDER THE SKIN AT [...] than 7.0% ([facility]) TAKE 1 TABLET BY MOUTH TWICE [...] pain 01/24/2012 01/17/2017 Genetic Sleep Disorder Research Other*[id number] 05/13/2011 04/07/2016 Obstructive sleep apnea 01/18/2011 12/27/19 [...] 08/05/2019 10:11 AM EST Spoke with Haleigh Mulligan she states that it is a Svetlana [...] EST Pt is no longer resident at [facility] and if requires re authorization for [...] patient. Name of Requesting Provider: Cady Flores [facility] Order Requested: Lift Diagnosis/Reason for Request: ambulatory dysfunction Does the order need to be faxed somewhere? If so, where?: [facility] Fax Number, if applicable: [phone] Call Back Number: [phone] Cady from [facility] calling. She states that order there are needing co- signed is for a lift. At time of call there were no orders in patient's chart dated 04/17/19 for a lift. A lift is mentioned in Kenya Moreland PA-C prison visit note, but no order is attached [...] 07/29/2019 3:43 PM EST Cady called from [facility]. She is asking for an order for a patient lift from 04-17-2019 from Kenya Moreland be cosigned by a doctor and forwarded to her at [phone]. Please call Cady or fax the cosigned order to her. Thank you. documented in this encounter Plan of Treatment Upcoming Encounters Date Type Specialty Care Team Description 08/12/2019 Office Visit Family Medicine [facility]inder [facility] [address] [facility] [address] 08/26/2019 Office Visit [facility]astroenterology [facility]out [facility] [address] [facility] [address] [phone] 09/02/2019 Imaging Radiology 10/29/2019 Nutrition Services Gastroenterology Melissa Omalley RDN [address] [facility] [place] [address] [phone] 11/18/2019 Office Visit Family Medicine Rajwinder Carter DO [address] [facility] [address] 12/31/2019 Office Visit Gynecology Obstetrics Rosaura Perez, BOOM [address] [facility] [place] [address] Health Maintenance Due Date [...] File Type Date Recorded 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
--- OUTSIDE RECORDS SUMMARY | 2023-05-10 23:03 | External Medical Summary | Summary of Care ---
Author Name Unknown Organization [facility] Address [place] [address] Care Team Providers Care Steam Hoist Operator Name Role Phone Rajwinder Carter DO Primary Care Provider [phone] Reason for Visit * Reason Comments Advice Encounter Details Date Type Department Care Team Description 07/29/2019 Telephone [facility] Vern Zamora [address] [place] [id number] Kenya Moreland PA-C [address] [place] [...] ([facility]) INJECT 24 UNITS UNDER THE SKIN AT [...] pain 01/24/2012 01/17/2017 Genetic Sleep Disorder Research Other*[id number] 05/13/2011 04/07/2016 Obstructive sleep apnea 01/18/2011 12/27/19 [...] 10:11 AM EST Spoke with Haleigh at [facility] she states that it is a Svetlana [...] EST Pt is no longer resident at [facility] and if requires re authorization for [...] patient. Name of Requesting Provider: Cady Flores [facility] Order Requested: Lift Diagnosis/Reason for Request: ambulatory dysfunction Does the order need to be faxed somewhere? If so, where?: [facility] Fax Number, if applicable: [phone] Call Back Number: [phone] Cady from [facility] calling. She states that order there are needing co- signed is for a lift. At time of call there were no orders in patient's chart dated 04/17/19 for a lift. A lift is mentioned in Kenya Moreland PA-C [facility] visit note, but no order is attached [...] a doctor and forwarded to her at [phone]. Please call Cady or fax the cosigned order to her. Thank you. documented in this encounter Plan of Treatment Upcoming Encounters Date Type Specialty Care Team Description 08/26/2019 Office Visit Gastroenterology Lyssa Stout CRNP [address] [place] [address] [phone] 09/02/2019 Imaging Radiology 10/29/2019 Nutrition Services Gastroenterology Melissa Omalley, [place] [address] [facility] [place] [address] [phone] 11/18/2019 Office Visit Family Medicine Rajwinder Carter, [address] [place], [place] [address] [id number] 12/31/2019 Office Visit Gynecology Obstetrics Rosaura Perez CN [address] [place] [address] [phone] Health Maintenance Due Date Last Done Comments [...] Documents on File Type Date Recorded 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
--- OUTSIDE RECORDS SUMMARY | 2023-05-10 23:04 | External Medical Summary | Summary of Care ---
Author Name Unknown Organization [facility] Address [place] [address] Care Team Providers Care Drywall Carrier Name Role Phone Rajwinder Carter DO Primary Care Provider [phone] Reason for Visit * Reason Comments Advice Encounter Details Date Type Department Care Team Description 07/29/2019 Telephone [facility] Vern Zamora [address] [place] [id number] Kenya Moreland PA-C [address] [place] [address] Advice Allergies Active Allergy Reactions Severity Noted Date Comments Penicillins Rash 02/12/2008 documented as of this encounter (statuses as of 08/02/2019) Medications Medication Sig Dispensed Refills Start Date End Date Status CENTRUM SILVER PO TABS 1 tab daily 1 Tab 0 05/25/2012 Active vitamin c (ASCORBIC ACID) 500 MG Tablet Take 500 mg by mouth daily. 0 Active insulin glargine (LANTUS SOLOSTAR) 100 UNIT/ML SOPNIndications:Typ e 2 diabetes mellitus with hemoglobin A1c goal of less than 7.0% ([facility]) INJECT 24 UNITS UNDER THE SKIN [...] goal of less than 7.0% ([facility]) TAKE 1 TABLET BY MOUTH TWICE [...] as of this encounter (statuses as of 08/02/2019) Active Problems Problem Noted Date Thrombocytopenia 05/02/2019 [...] as of this encounter (statuses as of 08/02/2019) Resolved Problems Problem Noted Date Resolved Date [...] pain 01/24/2012 01/17/2017 Genetic Sleep Disorder Research Other*[id number] 05/13/2011 04/07/2016 Obstructive sleep apnea 01/18/2011 12/27/19 [...] as of this encounter (statuses as of 08/02/2019) Immunizations Name Administration Dates Next Due HEP [...] EST Pt is no longer resident at [facility] and if requires re authorization [...] patient. Name of Requesting Provider: Cady Flores [facility] Order Requested: Lift Diagnosis/Reason for Request: ambulatory dysfunction Does the order need to be faxed somewhere? If so, where?: [facility] Fax Number, if applicable: [phone] Call Back Number: [phone] Cady from [facility] calling. She states that order there are needing co- signed is for a lift. At time of call there were no orders in patient's chart dated 04/17/19 for a lift. A lift is mentioned in Kenya Moreland PA-C [facility] visit note, but no order is attached to note. A lift is also mentioned in Dr. Jordan[facility] hospital discharge note from 05/02/19, but states that patient has a svetlana lift. If order is appropriate please fax to Cady at [facility] * Telephone Encounter - Dominique Franco, THAD [...] 07/29/2019 3:43 PM EST Cady called from [facility]. She is asking for an order for a patient lift from 04-17-2019 from Kenya Moreland be cosigned by a doctor and forwarded to her at [phone]. Please call Cady or fax the cosigned order to her. Thank you. 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
--- OUTSIDE RECORDS SUMMARY | 2023-05-10 23:04 | External Medical Summary | Summary of Care ---
Author Name Unknown Organization [facility] Address [place] [address] Care Team Providers Care Construction Plant Operator Name Role Phone Rajwinder Carter DO Primary Care Provider [phone] Reason for Visit * Reason Comments Advice Encounter Details Date Type Department Care Team Description 07/29/2019 Telephone [facility] Vern Zamora [address] [place] [id number] Kenya Moreland PA-C [address] [place] [...] pain 01/24/2012 01/17/2017 Genetic Sleep Disorder Research Other*[id number] 05/13/2011 04/07/2016 Obstructive sleep apnea 01/18/2011 12/27/19 [...] Miscellaneous Notes * Telephone Encounter - Kenya Moreland PA-C - 08/02/2019 2:04 PM EST Pt is no longer resident at [facility] and if requires re authorization for [...] [facility] Fax Number, if applicable: [phone] Call Back Number: [phone] Cady from [facility] calling. She states that order there are needing co- signed is for a lift. At time of call there were no orders in patient's chart dated 04/17/19 for a lift. A lift is mentioned in Kenya Moreland PA-C correction visit note, but no order is attached to note. A lift is also mentioned in Dr. Jordan's hospital discharge note from 05/02/19, but states that patient has a candace lift. If order is appropriate please fax to Cady at [facility] * Telephone Encounter - Dominique Franco OSA [...] 07/29/2019 3:43 PM EST Cady called from [facility]. She is asking for an order for a patient lift from 04-17-2019 from Kenya Moreland be cosigned by a doctor and forwarded to her at [phone]. Please call Cady or fax the cosigned order to her. Thank you. 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
--- OUTSIDE RECORDS SUMMARY | 2023-05-10 23:04 | External Medical Summary | Summary of Care ---
Author Name Unknown Organization [facility] Address [place] [address] Care Team Providers Care Rn Iv Therapy Name Role Phone JohnbrianRajwinder thacker Primary Care Provider [phone] Reason for Visit * Reason Comments eRx-Medication Refill Encounter Details Date Type Department Care Team Description 07/03/2019 Refill [facility] [address] [place], [place] [id number] Brianne Pal PA-C [address] [place], [place] [id number] Type 2 diabetes mellitus with hemoglobin A1c goal of less than 7.0% (HCC) Allergies Active Allergy Reactions Severity Noted Date Comments Penicillins Rash 02/12/2008 documented as of this encounter (statuses as of 07/04/2019) Medications Medication Sig Dispensed Refills Start Date End Date Status CENTRUM SILVER PO TABS 1 tab daily 1 Tab 0 2 Active vitamin c (ASCORBIC ACID) 500 MG Tablet Take 500 mg by mouth daily. 0 Active fluticasone (FLONASE) 50 MCG/ACT nasal sprayIndications:Si nus congestion Administer 2 Sprays into each nostril daily. 1 Inhaler 5 9 Active insulin glargine (LANTUS SOLOSTAR) 100 UNIT/ML SOPNIndications:Typ e 2 diabetes mellitus with hemoglobin A1c goal of less than 7.0% (HCC) INJECT 24 UNITS UNDER THE SKIN AT BED TIME 15 mL 3 9 Active omeprazole (PRILOSEC) 20 MG CPDR TAKE 1 CAPSULE BY MOUTH ONCE DAILY 90 Cap 3 9 Active ferrous sulfate (FEOSOL) 325 [...] ONCE DAILY 30 Tab 5 9 Active cyclobenzaprine (FLEXERIL) 10 MG Tablet TAKE 1 TABLET BY MOUTH AT BEDTIME 30 Tab 0 9 Active levothyroxine (LEVOXYL) 150 MCG TabletIndications:A cquired [...] WITH FOOD 180 Tab 3 9 Active MetFORMIN (GLUCOPHAGE) 1000 MG TabletIndications:T ype 2 diabetes mellitus with hemoglobin A1c goal of less than 7.0% (HCC) TAKE 1 TABLET BY MOUTH TWICE DAILY with food 60 Tab 4 9 07/03/20 19 Discontinued documented as of this encounter (statuses as of 07/04/2019) Active Problems Problem Noted Date Thrombocytopenia 05/02/2019 [...] as of this encounter (statuses as of 07/04/2019) Resolved Problems Problem Noted Date Resolved Date [...] pain 01/24/2012 01/17/2017 Genetic Sleep Disorder Research Other*[id number] 05/13/2011 04/07/2016 Obstructive sleep apnea 01/18/2011 12/27/19 [...] as of this encounter (statuses as of 07/04/2019) Immunizations Name Administration Dates Next Due HEP [...] Miscellaneous Notes * Telephone Encounter - Erica Ferrera, [facility] - 07/04/2019 10:05 AM EDT Signed Prescriptions: Disp Refills MetFORMIN (GLUCOPHAGE) 1000 MG Tablet 180 Tab3 Sig: TAKE 1 TABLET BY MOUTH TWICE DAILY WITH FOODAuthorizing Provider: BRIANNE PAL User: ERICA FERRERA documented in this encounter Plan of Treatment Upcoming Encounters Date Type Specialty Care Team Description 07/18/2019 Office Visit Family Medicine Rajwinder Carter DO [address] [facility] [place] [id number] 07/24/2019 Nutrition Services Gastroenterology Melissa Omalley RDN [address] [place] [address] 09/02/2019 Office Visit Gastroenterology Lyssa Stout CRNP [address] [place] [address] 12/31/2019 Office Visit [facility]ne[facility]stetrics [facility] [place] [address] Health Maintenance Due Date [...] PTS 12 AND OVER Completed 12/09/2015, 10/20/2014 Pneumococcal Vaccine: Pediatrics (0 to 5 Years) [...] Documents on File Type Date Recorded 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
--- OUTSIDE RECORDS SUMMARY | 2023-05-10 23:04 | External Medical Summary | Summary of Care ---
Author Name Unknown Organization [place] [address] Care Team Providers Care Plastics Spreading Machine Operator Name Role Phone JohnbrianRajwinder thacker Primary Care Provider [phone] Reason for Visit * Reason Comments Weight Management Medical Management Encounter Details Date Type Department Care Team Description 07/24/2019 Nutrition Services Nutrition & Weight Management, [facility] [address] [facility] [place] [address] Melissa Omalley RDN [address] [place] [id number] Obesity, morbid (more than 100 lbs over ideal weight or BMI > 40) ([facility]; Type 2 diabetes mellitus with hemoglobin A1c goal of less than 7.0% (HCC); HTN, goal below 140/90; Cirrhosis of liver (HCC); Lymphedema; Dyslipidemia, goal LDL below 70; Acquired hypothyroidism Allergies Active Allergy Reactions Severity Noted Date Comments Penicillins Rash 02/12/2008 documented as of this encounter (statuses as of 07/24/2019) Medications Medication Sig Dispensed Refills Start Date End Date Status CENTRUM SILVER PO TABS 1 tab daily 1 Tab 0 05/25/2012 Active vitamin c (ASCORBIC ACID) 500 MG Tablet Take 500 mg by mouth daily. 0 Active fluticasone (FLONASE) 50 MCG/ACT nasal sprayIndications:Sin us congestion Administer 2 Sprays into each nostril daily. 1 Inhaler 5 01/09/2019 Active insulin glargine (LANTUS SOLOSTAR) 100 UNIT/ML [...] than 7.0% ([facility]) Inject 1 syringeful once weekly [...] With spacer 1 Inhaler 1 07/06/2019 Active doxycycline hyclate 100 MG CapsuleIndications:B ronchitis, complicated Take 1 Cap by mouth 2 times a day for 10 days. Until gone. 20 Cap 0 07/18/2019 9 Active documented as of this encounter (statuses as of 07/24/2019) Active Problems Problem Noted Date Thrombocytopenia 05/02/2019 [...] as of this encounter (statuses as of 07/24/2019) Resolved Problems Problem Noted Date Resolved Date [...] pain 01/24/2012 01/17/2017 Genetic Sleep Disorder Research Other*[id number] 05/13/2011 04/07/2016 Obstructive sleep apnea 01/18/2011 12/27/19 [...] as of this encounter (statuses as of 07/24/2019) Immunizations Name Administration Dates Next Due HEP [...] Sign Reading Time Taken Comments Blood Pressure 126/76 07/24/2019 12:13 PM EST Pulse 64 07/24/2019 12:13 PM EST Temperature - - Respiratory Rate - - Oxygen Saturation - - Inhaled Oxygen Concentration - - Weight - - Height - - Body Mass Index - - documented in this encounter Patient Instructions * Patient Instructions* Melissa Omalley RDN - 07/24/2019 12:30 PM EST PATIENT GOALS: 1) Patient to follow a portion/calorie controlled diet with focus on choosing: leaner proteins, more fruits and low calorie vegetables, limiting higher carbohydrate sources such as potatoes, pasta, refined carbohdyrates, simple sugars etc. Patient just trying to cut down in portions in general to aid with weight reduction. 2) Patient to decrease servings of starches of pasta, potatoes or rice as supper meal . Patient to add a low calorie vegetable to meal to aid with cutting down on calories. Patient to consider switching to a healthier TV dinner such as Smart Ones or Healthy Choice. 3) Patient to drink more water with goal of 48-64 ounces day. 4) Patient to continue to zone in on following a Low Sodium Diet. documented in this encounter Progress Notes * Melissa Omalley RDN - 07/24/2019 12:13 PM EST GI/NUTRITION CONSULT [facility] Patient was identified at visit by name and date. PATIENT: Shaina Bustos DATE: 07/24/19 NUTRITION ASSESSMENT Diagnosis Code for referral for [...] return visit nutrition counseling for weight management. [facility] to so patient can walk. Patient is currently not able to walk (scooter bound) Patient unable to stand to get weight. Describes typical diet history/24 hr recall Breakfast: Egg and toast or oatmeal Lunch: 2 slices of pizza or a turkey sandwich Dinner: Stew or a snack Susan Calendar Frozen rice meals ( such as uncle priscilla's) Drinks: 48-64 ounces of fluid a day WT GOAL: Patient would like to lose 100 lbs correction CURRENT WT: based off last weight obtained 2 weeks after last visit: 256 lbs Ht: 4'11" BMI: 51.8 Was unable to weigh patient today. LAST VISIT WT: 02/06/19 260 lbs Wt Readings from Last 10 Encounters: [...] LABS: Component Latest Ref Rng & Units 04/17/2019 BUN 6 - 20 mg/dL 12 CREATININE 0.5 - 1.0 mg/dL 0.7 E GLOM FILT RATE >60 >60.0 SODIUM 135 - 146 mmol/L 142 POTASSIUM 3.5 - 5.1 mmol/L 3.6 CHLORIDE 98 - 107 mmol/L 103 CO2 22 - 32 mmol/L 27 ANION GAP 7 - 15 mmol/L 12 GLUCOSE 70 - 120 mg/dL 122 (H) CALCIUM 8.4 - 10.2 mg/dL 8.9 PHYSICAL ACTIVITY:Light SUPPLEMENTS: Vitamin C PRIOR NUTRITION COUNSELING: No prior counseling DAILY ENERGY/NUTRIENT NEEDS:[id number] KCALS for wt loss DIET RECALL INDICATES: [...] as tolerated. PATIENT GOALS: 1) Patient to follow a portion/calorie controlled diet with focus on choosing: leaner proteins, more fruits and low calorie vegetables, limiting higher carbohydrate sources such as potatoes, pasta, refined carbohdyrates, simple sugars etc. Patient just trying to cut down in portions in general to aid with weight reduction. 2) Patient to decrease servings of starches of pasta, potatoes or rice as supper meal. Patient to add a low calorie vegetable to meal to aid with cutting down on calories. 3) Patient to drink more water with goal of 48-64 ounces day. 4) Patient to continue to zone in on following a Low Sodium Diet. EXPECTED OUTCOMES: Demonstrated interest in learning. Expect compliance with diet recommendations. PLAN: Patient scheduled to return in 3 months; dietitian phone # given for future reference. Spoke with GI nurse. is unable to bring chair lift in vehicle to next visit. Recommended for patient to be weighed on the wheel chair scale with the scooter. Last visits weight can be deducted to get an estimated on the scooter weight just to get a baselinefor monitoring since patient cannot walk or be lifted onto the scale. 30 minutes return visit Melissa Omalley RDN documented in this encounter Nursing Notes * Alirio Corcoran LPN - 07/24/2019 12:13 PM EST Patient identified by full name and date of Chief Complaint Patient presents with Weight Management Medical Management documented in this encounter Plan of Treatment Upcoming Encounters Date Type Specialty Care Team Description 09/02/2019 Office Visit Gastroenterology Lyssa Stout CRNP [address] [place] [address] [phone] 09/02/2019 Imaging Radiology 10/29/2019 Nutrition Services Gastroenterology Melissa Omalley RDN [address] [place] [address] [phone] 11/18/2019 Office Visit Family Medicine Rajwinder Carter DO [address] [facility] [place] [address] [phone] 12/31/2019 Office Visit Gynecology Obstetrics Rosaura Perez CNM [address] [place] [address] Scheduled Orders Name Type Priority Associated Diagnoses Orde r Schedule MED NUTRITION TX; SUBSEQ 15 MIN (PROVIDER) Procedures Routine Obesity, morbid (more than 100 lbs over ideal weight or BMI > 40) ([facility]) Type 2 diabetes mellitus with hemoglobin A1c goal of less than 7.0% (HCC) HTN, goal below 140/90 Cirrhosis of liver (HCC) Lymphedema Dyslipidemia, goal LDL below 70 Acquired hypothyroidism Ordered: 07/24/2019 Health Maintenance Due Date Last Done Comments [...] Documents on File Type Date Recorded Patient 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
--- OUTSIDE RECORDS SUMMARY | 2023-05-10 23:04 | External Medical Summary | Summary of Care ---
Author Name Unknown Organization [place] [address] Care Team Providers Care Defence Intelligence Analyst Name Role Phone Rajwinder Carter Primary Care Provider [phone] Encounter Details Date Type Department Care Team Description 07/10/2019 Scan Encounter Unspecified Department <No scans attached> Allergies Active Allergy Reactions Severity Noted Date Comments Penicillins Rash 02/12/2008 documented as of this encounter (statuses as of 07/10/2019) Medications Medication Sig Dispensed Refills Start Date [...] 7.0% ([facility]) Inject 1 syringeful once weekly [...] ONCE DAILY 30 Tab 5 06/06/2019 Active cyclobenzaprine (FLEXERIL) 10 MG Tablet TAKE [...] WITH FOOD 180 Tab 3 07/04/2019 Active predniSONE (DELTASONE) 20 MG Tablet 3 tabs daily for 3 days, 2 tabs daily for 2 days, 1 tab daily for 2 days 15 Tab 0 07/06/2019 Active albuterol HFA (PROAIR HFA) 108 (90 BASE) MCG/ACT inhaler Inhale 2 Puffs by mouth every 4 hours as needed for Cough or Wheezing. With spacer 1 Inhaler 1 07/06/2019 Active documented as of this encounter (statuses as of 07/10/2019) Active Problems Problem Noted Date Thrombocytopenia 05/02/2019 [...] as of this encounter (statuses as of 07/10/2019) Resolved Problems Problem Noted Date Resolved Date [...] pain 01/24/2012 01/17/2017 Genetic Sleep Disorder Research Other*[id number] 05/13/2011 04/07/2016 Obstructive sleep apnea 01/18/2011 12/27/19 [...] as of this encounter (statuses as of 07/10/2019) Immunizations Name Administration Dates Next Due HEP [...] Team Description 07/18/2019 Office Visit Family Medicine aRjwinder Carter, DO [address] [place] [address] [phone] 07/22/2019 Office Visit Optometry Jarett Schmitt, OD [address] [place] [address] 07/24/2019 Nutrition Services Gastroenterology Melissa Omalley RDN [address] [place] [address] [phone] 09/02/2019 Office Visit Gastroenterology Lyssa Stout CRNP [address] [facility] [place] [address] [phone] 12/31/2019 Office Visit Gynecology Obstetrics Rosaura Perez CNM [address] [facility] [place] [address] Health Maintenance Due [...] on File Type Date Recorded Patient Office Administrative Assistant Expl anation Advanced Directive service a kerri default Advanced Directive Advanced Directive Advanced Directive Advanced Directive Advanced Directive Advanced Directive Advanced Directive
--- OUTSIDE RECORDS SUMMARY | 2023-05-10 23:04 | External Medical Summary | Summary of Care ---
Author Name Unknown Organization [place] [address] Care Team Providers Care Pipeliner Name Role Phone Rajwinder Lara DO Primary Care Provider [phone] Reason for Visit * Reason Comments eRx-Medication Refill Encounter Details Date Type Department Care Team Description 07/31/2019 Refill [facility] [address] [place] [address] Rajwinder Lara DO [address] [place] [address] [phone] Sinus congestion Allergies Active Allergy Reactions Severity Noted Date Comments Penicillins Rash 02/12/2008 documented as of this encounter (statuses as of 08/01/2019) Medications Medication Sig Dispensed Refills Start Date [...] than 7.0% ([facility]) Inject 1 syringeful once weekly 4 Pre-filled [...] DAILY DIRECTED 16 g 5 08/01/2019 Active fluticasone (FLONASE) 50 MCG/ACT nasal sprayIndications:Si nus congestion Administer 2 Sprays into each nostril daily. 1 Inhaler 5 01/09/2019 07/31/20 19 Discontinu ed(Refill) documented as of this encounter (statuses as of 08/01/2019) Active Problems Problem Noted Date Thrombocytopenia 05/02/2019 [...] as of this encounter (statuses as of 08/01/2019) Resolved Problems Problem Noted Date Resolved Date [...] pain 01/24/2012 01/17/2017 Genetic Sleep Disorder Research Other*[id number] 05/13/2011 04/07/2016 Obstructive sleep apnea 01/18/2011 12/27/19 [...] as of this encounter (statuses as of 08/01/2019) Immunizations Name Administration Dates Next Due HEP [...] Miscellaneous Notes * Telephone Encounter - Radha Joshi RPh - 08/01/2019 8:40 AM EST Signed Prescriptions: Disp Refills fluticasone (FLONASE) 50 MCG/ACT nasal spr*16 g 5 Sig: INSTILL 2SPRAYS INTO EACH NOSTRIL DAILY DIRECTEDAuthorizing Provider: RAJWINDER LARA User: RADHA JOSHI documented in this encounter Plan of Treatment Upcoming Encounters Date Type Specialty Care Team Description 08/26/2019 Office Visit Gastroenterology Lyssa Stout CRNP [address] [facility] [place] [address] [phone] 09/02/2019 Imaging Radiology 10/29/2019 Nutrition Services Gastroenterology Melissa Omalley, RDN [address] [place] [address] 11/18/2019 Office Visit Family Medicine [facility]inder [facility] [address] [facility] [id number] 12/31/2019 Office Visit [facility]necology [facility]stetrics Rosaura Perez, CNM [address] [facility] [place] [address] Health Maintenance Due [...] Documents on File Type Date Recorded Patient Candy Dipper Hand Expl anation Advanced Directive service a kerri default Advanced Directive Advanced Directive Advanced Directive Advanced Directive Advanced Directive Advanced Directive Advanced Directive Advanced Directive
--- OUTSIDE RECORDS SUMMARY | 2023-05-10 23:04 | External Medical Summary | Summary of Care ---
Author Name Unknown Organization [facility] Address [place] [address] Care Team Providers Care Disk Grinder Name Role Phone Rajwinder Carter DO Primary Care Provider [phone] Reason for Visit * Reason Comments Advice Encounter Details Date Type Department Care Team Description 07/29/2019 Telephone [facility] Vern Zamora [address] [place] [id number] Kenya Moreland PA-C [address] [place] [...] pain 01/24/2012 01/17/2017 Genetic Sleep Disorder Research Other*[id number] 05/13/2011 04/07/2016 Obstructive sleep apnea 01/18/2011 12/27/19 [...] EST Pt is no longer resident at [facility] and if requires re authorization [...] [facility] Fax Number, if applicable: [phone] Call Back Number: [phone] Cady from [facility] calling. She states that order there are needing co- signed is for a lift. At time of call there were no orders in patient's chart dated 04/17/19 for a lift. A lift is mentioned in Kenya Moreland PA-C [facility] visit note, but no order is attached to note. A lift is also mentioned in Dr. Jordan's hospital discharge note from 05/02/19, but states that patient has a candace lift. If order is appropriate please fax to Cady at [facility] * Telephone Encounter - Dominique [...] 07/29/2019 3:43 PM EST Cady called from [facility]. She is asking for an order for a patient lift from 04-17-2019 from Kenya Moreland be cosigned by a doctor and forwarded to her at [phone]. Please call Cady or fax the cosigned order to her. Thank you. 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
--- OUTSIDE RECORDS SUMMARY | 2023-05-10 23:04 | External Medical Summary | Summary of Care ---
Author Name Unknown Organization [place] [address] Care Team Providers Care Fish Checker Name Role Phone Rajwinder Carter Primary Care Provider [phone] Encounter Details Date Type Department Care Team Description 06/20/2019 Scan Encounter Unspecified Department <No scans attached> Allergies Active Allergy Reactions Severity Noted Date Comments Penicillins Rash 02/12/2008 documented as of this encounter (statuses as of 06/21/2019) Medications Medication Sig Dispensed Refills Start Date End Date Status CENTRUM SILVER PO TABS 1 tab daily 1 Tab 0 05/25/2012 Active vitamin c (ASCORBIC ACID) 500 MG Tablet Take 500 mg by mouth daily. 0 Active MetFORMIN (GLUCOPHAGE) 1000 MG TabletIndications:Ty pe 2 diabetes mellitus with hemoglobin A1c goal of less than 7.0% (HCC) TAKE 1 TABLET BY MOUTH TWICE DAILY with food 60 Tab 4 12/26/2018 Active fluticasone (FLONASE) 50 MCG/ACT nasal sprayIndications:Sin [...] less than 7.0% ([facility]) Inject 1 syringeful once weekly 4 Pre-filled [...] TWICE DAILY 60 Tab 4 06/11/2019 Active documented as of this encounter (statuses as of 06/21/2019) Active Problems Problem Noted Date Thrombocytopenia 05/02/2019 [...] as of this encounter (statuses as of 06/21/2019) Resolved Problems Problem Noted Date Resolved Date [...] pain 01/24/2012 01/17/2017 Genetic Sleep Disorder Research Other*[id number] 05/13/2011 04/07/2016 Obstructive sleep apnea 01/18/2011 12/27/19 [...] as of this encounter (statuses as of 06/21/2019) Immunizations Name Administration Dates Next Due HEP [...] Encounters Date Type Specialty Care Team Description 07/03/2019 Office Visit Family Medicine Rajwinder Carter DO [address] [place] [address] [phone] 07/24/2019 Nutrition Services Gastroenterology Melissa Omalley, RDN [address] [place] [phone] 09/02/2019 Office Visit Gastroenterology Lyssa Stout CRNP [...] on File Type Date Recorded Patient Criminal Researcher Expl anation Advanced Directive service a kerri default Advanced Directive Advanced Directive Advanced Directive Advanced Directive Advanced Directive Advanced Directive Advanced Directive
--- OUTSIDE RECORDS SUMMARY | 2023-05-10 23:04 | External Medical Summary | Summary of Care ---
Author Name Unknown Organization [facility] Address [place] [address] Care Team Providers Care Foundry Tender Name Role Phone Rajwinder Carter Primary Care Provider [phone] Reason for Visit * Reason Comments Acute chest cold, earache x couple days Encounter Details Date Type Department Care Team Description 07/06/2019 Office Visit [facility] [address] [place] [address] Brian Domingo MD 132 [facility] [place] [address] [phone] Acute bronchitis, antibiotics not indicated*; Mild intermittent asthma with exacerbation; Acute serous otitis media, recurrence not specified, unspecified laterality Allergies Active Allergy Reactions Severity Noted Date Comments Penicillins Rash 02/12/2008 documented as of this encounter (statuses as of 07/06/2019) Medications Medication Sig Dispensed Refills Start Date [...] as of this encounter (statuses as of 07/06/2019) Active Problems Problem Noted Date Thrombocytopenia 05/02/2019 [...] as of this encounter (statuses as of 07/06/2019) Resolved Problems Problem Noted Date Resolved Date [...] pain 01/24/2012 01/17/2017 Genetic Sleep Disorder Research Other*[id number] 05/13/2011 04/07/2016 Obstructive sleep apnea 01/18/2011 12/27/19 [...] as of this encounter (statuses as of 07/06/2019) Immunizations Name Administration Dates Next Due HEP [...] Reading Time Taken Comments Blood Pressure 128/70 07/06/2019 12:57 PM EDT Pulse 64 07/06/2019 12:57 PM EDT Temperature 36.2 C (97.2 F) 07/06/2019 12:57 PM E DT Respiratory Rate 16 07/06/2019 12:57 PM EDT Oxygen Saturation - - Inhaled Oxygen Concentration - - Weight - - Height - - Body Mass Index - - documented in this encounter Progress Notes * Brian Domingo MD - 07/06/2019 2:09 PM EDT Subjective: Patient here for cough congestion and bilateral ear discomfort for the past 3 days. Denies fever, has had some phlegm production, Reviewed her medical problems Reviewed her medications She is here with her Objective: TMs juarez Throat without significant inflammation Neck without lymphadenopathy Lungs clear no wheezing rales or rhonchi Cardiac exam regular rate rhythm Assessment: Acute bronchitis, antibiotics not indicated (Primary) Discussed use of prednisone Mild intermittent asthma with exacerbation Refilled script for albuterol Acute serous otitis media, recurrence not specified, unspecified laterality Related to bronchitis, probably viral Other orders - predniSONE (DELTASONE) 20 MG Tablet; 3 tabs daily for 3 days, 2 tabs daily for 2 days, 1 tab daily for 2 days - albuterol HFA (PROAIR HFA) 108 (90 BASE) MCG/ACT inhaler; Inhale 2 Puffs by mouth every 4 hours as needed for Cough or Wheezing. With spacer Follow Up: Return if symptoms worsen or fail to improve. documented in this encounter Nursing Notes * Olya Pugh CMA - 07/06/2019 12:56 PM EDT The patient has been properly identified by confirmation of name and date of . Chief Complaint Patient presents with Acute chest cold, earache x couple days documented in this encounter Plan of Treatment Upcoming Encounters Date Type Specialty Care Team Description 07/18/2019 Office Visit Family Medicine Rajwinder Carter DO [address], [place] [id number] 07/24/2019 Nutrition Services Gastroenterology Melissa Omalley, SAMANTHA [address] [place] [facility] [place] [address] [phone] 09/02/2019 Office Visit Gastroenterology Lyssa Stout CRNP [address] [place] [address] 12/31/2019 Office Visit Gynecology Obstetrics Rosaura Perez CNM [address] [place] [address] Health Maintenance Due Date Last Done [...] of this encounter Visit Diagnoses Diagnosis Acute bronchitis, antibiotics not indicated- Primary Acute bronchitis Mild intermittent asthma with exacerbation Unspecified asthma, with exacerbation Acute serous otitis media, recurrence not specified, unspecified laterality documented in this encounter Advance Directives Documents on File Type Date Recorded Patient Hyperion Analyst Expl anation Advanced Directive service a kerri default Advanced Directive Advanced Directive Advanced Directive Advanced Directive Advanced Directive Advanced Directive Advanced Directive
--- OUTSIDE RECORDS SUMMARY | 2023-05-10 23:05 | External Medical Summary | Summary of Care ---
Author Name Unknown Organization [facility] Address [place] [address] Care Team Providers Care Managed Care Manager Name Role Phone JohnbrianRajwinder thacker Primary Care Provider [phone] Reason for Visit * Reason Comments Test Results Encounter Details Date Type Department Care Team Description 06/07/2019 Telephone [facility], [facility] [place] [address] Lyssa Stout CRNP 132 [facility] [place] [address] [phone] Test Results Allergies Active Allergy Reactions Severity Noted Date Comments Penicillins Rash 02/12/2008 documented as of this encounter (statuses as of 06/07/2019) Medications Medication Sig Dispensed Refills Start Date End Date Status CENTRUM SILVER PO TABS 1 tab daily 1 Tab 0 05/25/2012 Active vitamin c (ASCORBIC ACID) 500 MG Tablet Take 500 mg by mouth daily. 0 Active oxybutynin (DITROPAN) 5 MG Tablet Take 1 Tab by mouth 2 times a day. Through urology 60 Tab 5 05/29/2018 Active MetFORMIN (GLUCOPHAGE) 1000 MG TabletIndications:Ty pe [...] mouth daily. 60 Tab 3 06/06/2019 Active documented as of this encounter (statuses as of 06/07/2019) Active Problems Problem Noted Date Thrombocytopenia 05/02/2019 [...] as of this encounter (statuses as of 06/07/2019) Resolved Problems Problem Noted Date Resolved Date [...] pain 01/24/2012 01/17/2017 Genetic Sleep Disorder Research Other*[id number] 05/13/2011 04/07/2016 Obstructive sleep apnea 01/18/2011 12/27/19 [...] as of this encounter (statuses as of 06/07/2019) Immunizations Name Administration Dates Next Due HEP [...] Telephone Encounter - Liz Hancock RN - 06/07/2019 2:45 PM EDT This has been fully explained to the patient, who indicates understanding. * Telephone Encounter - Liz Hancock RN - 06/07/2019 2:42 PM EDT ----- Message from ZAK Bolton sent at 06/07/2019 2:33 PM EDT ----- Attempted to reach pt but no answer. Cannot leave VM on cell or home. pls try reach her at later time and inform her that her labs appear stable - mildly elevated LFT and anemia, thrombocytopenia . Will continue to monitor at this time. ZAK Schreiber documented in this encounter Plan of Treatment Upcoming Encounters Date Type Specialty Care Team Description 06/12/2019 Imaging Radiology 06/18/2019 Office Visit Optometry Jarett Schmitt, OD [address] [place] [address] 07/03/2019 Office Visit Family Medicine Rajwinder Carter, [address] [place], [place] [address] 07/24/2019 Nutrition Services Gastroenterology Melissa Omalley RDN [address] [place] [address] [phone] 09/02/2019 Office Visit Gastroenterology Lyssa Stout CRNP 132 [facility] [place] [address] [phone] 12/31/2019 Office Visit Gynecology Obstetrics Rosaura Perez CNM 132 [facility] [place] [address] [phone] Health Maintenance Due Date Last Done Comments [...] on File Type Date Recorded Patient Information Technology Coordinator Expl anation Advanced Directive service a kerri default Advanced Directive Advanced Directive Advanced Directive Advanced Directive Advanced Directive Advanced Directive Advanced Directive
--- OUTSIDE RECORDS SUMMARY | 2023-05-10 23:05 | External Medical Summary | Summary of Care ---
Author Name Unknown Organization [facility] Address [place] [address] Care Team Providers Care Animal Herder Name Role Phone JohnbrianRajwinder thacker Primary Care Provider [phone] Reason for Visit * Reason Comments Test Results Encounter Details Date Type Department Care Team Description 06/07/2019 Telephone [facility]ology, [facility] [place] [address] Lyssa Stout CRNP 132 [facility] [place] [address] [phone] Test Results Allergies Active Allergy Reactions Severity Noted Date Comments Penicillins Rash 02/12/2008 documented as of this encounter (statuses as of 06/14/2019) Medications Medication Sig Dispensed Refills Start Date End Date Status CENTRUM SILVER PO TABS 1 tab daily 1 Tab 0 2 Active vitamin c (ASCORBIC ACID) 500 MG Tablet Take 500 mg by mouth daily. 0 Active MetFORMIN (GLUCOPHAGE) 1000 MG TabletIndications:T ype 2 diabetes mellitus with hemoglobin A1c goal of less than 7.0% (HCC) TAKE 1 TABLET BY MOUTH TWICE DAILY with food 60 Tab 4 9 Active fluticasone (FLONASE) 50 MCG/ACT nasal [...] a day. Through urology 60 Tab 5 8 06/06/20 19 Discontinued documented as of this encounter (statuses as of 06/14/2019) Active Problems Problem Noted Date Thrombocytopenia 05/02/2019 [...] as of this encounter (statuses as of 06/14/2019) Resolved Problems Problem Noted Date Resolved Date [...] pain 01/24/2012 01/17/2017 Genetic Sleep Disorder Research Other*[id number] 05/13/2011 04/07/2016 Obstructive sleep apnea 01/18/2011 12/27/19 [...] as of this encounter (statuses as of 06/14/2019) Immunizations Name Administration Dates Next Due HEP [...] Telephone Encounter - Giovana Lorenzo OSA - 06/14/2019 10:34 AM EDT Patient calling stating that she spoke with Lyssa CRESPO this morning and stated that Lyssa was going to "upgrade" one of her medications. Patient stating that pharmacy did not receive the prescription. Pharmacy verified. Patient asking for return call on her mobile phone number to clarify. * Telephone Encounter - Liz Hancock RN [...] Encounters Date Type Specialty Care Team Description 06/18/2019 Office Visit Optometry Jarett Schmitt, OD [address] [place] [address] [phone] 07/03/2019 Office Visit Family Medicine Rajwinder Carter DO [facility] [address] [place], [place] [id number] 07/24/2019 Nutrition Services Gastroenterology Melissa Omalley, RDN [address] [place] [address] [phone] 09/02/2019 Office Visit Gastroenterology Lyssa Stout CRNP [address] [place] [address] 12/31/2019 Office Visit Gynecology Obstetrics Rosaura Perez CNM [address] [place] [address] Health Maintenance Due [...] on File Type Date Recorded Patient Supervisor Hand Silvering Expl anation Advanced Directive service a kerri default Advanced Directive Advanced Directive Advanced Directive Advanced Directive Advanced Directive Advanced Directive Advanced Directive
--- OUTSIDE RECORDS SUMMARY | 2023-05-10 23:05 | External Medical Summary | Summary of Care ---
Author Name Unknown Organization [facility] Address [place] [address] Care Team Providers Care Copper Etcher Name Role Phone Rajwinder Carter DO Primary Care Provider [phone] Reason for Visit * Reason Comments Advice Encounter Details Date Type Department Care Team Description 05/31/2019 Telephone [facility] [address] [place] [address] Rajwinder Carter DO [address] [place] [address] Advice Allergies Active Allergy Reactions [...] day. Through urology 60 Tab 5 8 Active MetFORMIN (GLUCOPHAGE) 1000 MG TabletIndications:T ype [...] ([facility]) Inject 1 syringeful once weekly 4 Pre-filled Pen Syringe Dosing Unit 5 9 Active gabapentin (NEURONTIN) 300 MG Capsule One pill in am, one midday, two in pm, 180 Cap 5 9 Active levothyroxine (LEVOXYL) 150 MCG TabletIndications:A cquired hypothyroidism Take 1 Tab by mouth daily. (at least 30 min prior to breakfast or other meds) 30 Tab 11 8 06/05/20 19 Discontinued potassium chloride ER 10 MEQ TBCRIndications:Hyp okalemia With food. Pt reports only taking once dailly. 60 Tab 5 8 06/05/20 19 Discontinued Aspirin 81 MG Tablet Take 1 Tab by mouth daily. 34 Tab 5 9 06/05/20 19 Discontinued traZODone (DESYREL) 50 MG TabletIndications:S leep disturbances TAKE 1 TABLET BY MOUTH AT BEDTIME 30 Tab 5 9 06/05/20 19 Discontinued escitalopram (LEXAPRO) 20 MG Tablet TAKE 1 TABLET BY MOUTH ONCE DAILY 30 Tab 4 9 06/05/20 19 Discontinued cyclobenzaprine (FLEXERIL) 10 MG Tablet Take 1 Tab by mouth at bedtime. 30 Tab 0 9 06/05/20 19 Discontinued documented as of this encounter [...] pain 01/24/2012 01/17/2017 Genetic Sleep Disorder Research Other*[id number] 05/13/2011 04/07/2016 Obstructive sleep apnea 01/18/2011 12/27/19 [...] Telephone Encounter - Jimy Ponce OSA - 06/07/2019 4:20 PM EDT Reason for patient's call: Issue with PT operating room orderly was transferred to [facility] at the nurse line. * Telephone Encounter - Yanira Graves LPN - 06/03/2019 10:35 AM EDT Patient aware and verbalized understanding, will comply * Telephone Encounter - Silvia Patten OSA - 06/03/2019 10:29 AM EDT Reason for patient's call: returning call. Caller was transferred to [facility] at the nurse line. * Telephone Encounter - Rajwinder Carter DO - 06/02/2019 10:22 AM EDT It seems that pt's next step is SNF placement. I believe that she has a bilingual case manager through her insurance. That would be her next step to reach out to her to arrange placement. * Telephone Encounter - Giovana Lorenzo OSA - 05/31/2019 4:04 PM EDT Jesenia from [facility] calling stating that patient was denied by her insurance for inpatient rehab through them. Jesenia asking if intermediate placement would be an optionfor the patient. Jesenia states that the patient will need assistance and that she is frustrated at home. Jesenia was just calling to let Dr. Carter know and see what next steps would be for patient. * Telephone Encounter - Carlos Germain LPN - 05/31/2019 3:51 PM EDT Pt states that she received a call from [facility] stating that she was denied by insurance for an inpatient stay. Pt states that she does not know what she is supposed to do now because she is not able to walk andno longer receives in home therapy. Pt is very upset that she is not able to get around and has not seen any improvement since receiving in home PT. Pt is requesting further recommendations from PCP. Please advise. * Telephone Encounter - Rosaura Reilly OSA - 05/31/2019 3:45 PM EDT Reason for patient's call: Pt was planning on going into [facility] for rehab, but she just learned that she was denied by her insurance. Pt states that she cannot walk and does not know what she should do now. Pt states she is able to get around her house in a wheel chair but is unable to bathe anddress herself. This decline occurred after she was in the hospital the last time. Caller was transferred to [facility] at the nurse line. documented in this encounter Plan of Treatment Upcoming Encounters Date Type Specialty Care Team Description 06/12/2019 Imaging Radiology 06/18/2019 Office Visit Optometry Jarett Schmitt, OD [address] [place] [address] 07/03/2019 Office Visit Family Medicine Rajwinder Carter DO [address] [place] [address] [phone] 07/24/2019 Nutrition Services Gastroenterology Melissa Omalley RDN [address] [facility] [place] [id number] 09/02/2019 Office Visit Gastroenterology Lyssa Stout CRNP [address] [place] [address] 12/31/2019 Office Visit Gynecology Obstetrics Rosaura Perez CNM [facility] [place] [address] Health Maintenance Due Date [...] on File Type Date Recorded Patient Chain Saw Driver Expl anation Advanced Directive service a kerri default Advanced Directive Advanced Directive Advanced Directive Advanced Directive Advanced Directive Advanced Directive Advanced Directive
--- OUTSIDE RECORDS SUMMARY | 2023-05-10 23:05 | External Medical Summary | Summary of Care ---
Author Name Unknown Organization [place] [address] Care Team Providers Care Assistant Property Manager Name Role Phone Rajwinder Lara DO Primary Care Provider [phone] Reason for Visit * Reason Comments eRx-Medication Refill Encounter Details Date Type Department Care Team Description 06/06/2019 Refill [facility] [address] [place] [address] Rajwinder Lara DO [address] [place] [address] [phone] Allergies Active Allergy Reactions Severity Noted Date Comments Penicillins Rash 02/12/2008 documented as of this encounter (statuses as of 06/11/2019) Medications Medication Sig Dispensed Refills Start Date [...] less than 7.0% ([facility]) Inject 1 syringeful once weekly [...] TWICE DAILY 60 Tab 4 9 Active oxybutynin (DITROPAN) 5 MG Tablet Take 1 Tab by mouth 2 times a day. Through urology 60 Tab 5 8 06/06/20 19 Discontinued documented as of this encounter (statuses as of 06/11/2019) Active Problems Problem Noted Date Thrombocytopenia 05/02/2019 [...] as of this encounter (statuses as of 06/11/2019) Resolved Problems Problem Noted Date Resolved Date [...] pain 01/24/2012 01/17/2017 Genetic Sleep Disorder Research Other*[id number] 05/13/2011 04/07/2016 Obstructive sleep apnea 01/18/2011 12/27/19 [...] as of this encounter (statuses as of 06/11/2019) Immunizations Name Administration Dates Next Due HEP [...] Telephone Encounter - Rajwinder Lara DO - 06/11/2019 7:49 AM EDT Signed Prescriptions: Disp Refills oxybutynin (DITROPAN) 5 MG Tablet 60 Tab 4 Sig: TAKE 1 TABLET BY MOUTH TWICE DAILY Authorizing Provider: RAJWINDER LARA * Telephone Encounter - Batsheva Ratliff CPhT - 06/07/2019 9:27 AM EDT Pending Prescriptions: Disp Refills oxybutynin (DITROPAN) 5 MG Tablet [Pharmac*60 Tab 4 Sig: TAKE 1 TABLET BY MOUTH TWICE DAILY * Telephone Encounter - Batsheva Ratliff CPhT - 06/07/2019 9:27 AM EDT Pending Prescriptions: Disp Refills oxybutynin (DITROPAN) 5 MG Tablet [Pharma*60 Tab 4 Sig: TAKE 1 TABLET BY MOUTH TWICE DAILY Last Office Visit: 06/05/2019 Next Office Visit: 07/03/2019 Scheduled Provider(s): Rajwinder Lara DO If no future appointments scheduled, and last appointment is greater than a year ago, please schedule patient for a follow-up appointment Last date the medication was ordered: 05/29/2018 Pharmacy: [facility] [id number] Is this request for a controlled [...] Office Visit Optometry Jarett Schmitt, OD [address] [place] [address] 07/03/2019 Office Visit Family Medicine Rajwinder Lara DO [address] [place], [place] [phone] 07/24/2019 Nutrition Services Gastroenterology Melissa Omalley, SAMANTHA [address] [place] [address] 09/02/2019 Office Visit Gastroenterology Lyssa Stout CRNP 132 [facility] [place] [address] [phone] 12/31/2019 Office Visit Gynecology Obstetrics Rosaura Perez CNM [address] [place] [address] [phone] Health Maintenance Due Date Last Done Comments [...] Documents on File Type Date Recorded Patient Piece Dyeing Machine Tender Expl anation Advanced Directive service a kerri default Advanced Directive Advanced Directive Advanced Directive Advanced Directive Advanced Directive Advanced Directive Advanced Directive
--- OUTSIDE RECORDS SUMMARY | 2023-05-10 23:05 | External Medical Summary | Summary of Care ---
Author Name Unknown Organization [place] [address] Care Team Providers Care Veterinary Nurse Name Role Phone Rajwinder Carter Primary Care Provider [phone] Encounter Details Date Type Department Care Team Description 06/15/2019 Scan Encounter Unspecified Department <No scans attached> Allergies Active Allergy Reactions Severity Noted Date Comments Penicillins Rash 02/12/2008 documented as of this encounter (statuses as of 06/17/2019) Medications Medication Sig Dispensed Refills Start Date [...] 7.0% ([facility]) Inject 1 syringeful once weekly 4 Pre-filled [...] as of this encounter (statuses as of 06/17/2019) Active Problems Problem Noted Date Thrombocytopenia 05/02/2019 [...] as of this encounter (statuses as of 06/17/2019) Resolved Problems Problem Noted Date Resolved Date [...] pain 01/24/2012 01/17/2017 Genetic Sleep Disorder Research Other*[id number] 05/13/2011 04/07/2016 Obstructive sleep apnea 01/18/2011 12/27/19 [...] as of this encounter (statuses as of 06/17/2019) Immunizations Name Administration Dates Next Due HEP [...] Office Visit Optometry Jarett Schmitt, OD [address] [place], [place] [address] 07/03/2019 Office Visit Family Medicine JohnnjRajwinder thacker, DO [address] [facility] [id number] 07/24/2019 Nutrition Services Gastroenterology Shahram Melissa Serafin, RDN [address] [place] [id number] 09/02/2019 Office Visit Gastroenterology Lyssa Stout CRNP [address] [facility] [place] [address] 12/31/2019 Office Visit Gynecology Obstetrics Rosaura Perez, CN [address] [place] [address] Health Maintenance Due Date [...] on File Type Date Recorded Patient Public Relations Professional Expl anation Advanced Directive service a kerri default Advanced Directive Advanced Directive Advanced Directive Advanced Directive Advanced Directive Advanced Directive Advanced Directive
--- OUTSIDE RECORDS SUMMARY | 2023-05-10 23:05 | External Medical Summary | Summary of Care ---
Author Name Unknown Organization [place] [address] Care Team Providers Care Marine Habitat Resource Specialist Name Role Phone Rajwinder Carter Primary Care Provider [phone] Encounter Details Date Type Department Care Team [...] 7.0% ([facility]) Inject 1 syringeful once weekly 4 [...] pain 01/24/2012 01/17/2017 Genetic Sleep Disorder Research Other*[id number] 05/13/2011 04/07/2016 Obstructive sleep apnea 01/18/2011 12/27/19 [...] Office Visit Optometry Jarett Schmitt, OD [address] [place], [place] [id number] 07/03/2019 Office Visit Family Medicine JohnohRajwinder thacker, DO [address] [facility] [id number] 07/24/2019 Nutrition Services Gastroenterology [place] Melissa Serafin, RDN [address] [place] [id number] 09/02/2019 Office Visit Gastroenterology Lyssa Stout CRNP [address] [facility] [place] [address] 12/31/2019 Office Visit Gynecology Obstetrics Rosaura Perez, CN [address] [place] [address] Health Maintenance Due Date [...] Documents on File Type Date Recorded Patient Pulp Grinder And Blender Expl anation Advanced Directive service a kerri default Advanced Directive Advanced Directive Advanced Directive Advanced Directive Advanced Directive Advanced Directive Advanced Directive
--- OUTSIDE RECORDS SUMMARY | 2023-05-10 23:05 | External Medical Summary | Summary of Care ---
Author Name Unknown Organization [facility] Address [place] [address] Care Team Providers Care Child Support Specialist Name Role Phone oJhnbrianRajwinder thacker Primary Care Provider [phone] Reason for Visit * Reason Comments Test Results Encounter Details Date Type Department Care Team Description 06/07/2019 Telephone Gastroenterology, [facility] [place] [address] Lyssa Stout CRNP 132 [facility] [place] [address] [phone] Test Results Allergies Active Allergy Reactions Severity [...] pain 01/24/2012 01/17/2017 Genetic Sleep Disorder Research Other*[id number] 05/13/2011 04/07/2016 Obstructive sleep apnea 01/18/2011 12/27/19 [...] Office Visit Optometry Jarett Schmitt, OD [address] [place] [address] [phone] 07/03/2019 Office Visit Family Medicine Rajwinder Carter DO [facility] [address] [place], [place] [address] 07/24/2019 Nutrition Services Gastroenterology Melissa Omalley, RDN [address] [place] [address] [phone] 09/02/2019 Office Visit Gastroenterology Lyssa Stout CRNP [...] Documents on File Type Date Recorded Patient Trolley Cleaner Expl anation Advanced Directive service a kerri default Advanced Directive Advanced Directive Advanced Directive Advanced Directive Advanced Directive Advanced Directive Advanced Directive
--- OUTSIDE RECORDS SUMMARY | 2023-05-10 23:05 | External Medical Summary | Summary of Care ---
Author Name Unknown Organization [facility] Address [place] [address] Care Team Providers Care Ball Mill Operator Name Role Phone Rajwinder Carter DO Primary Care Provider [phone] Reason for Visit * Reason Comments Advice Encounter Details Date Type Department Care Team Description 05/31/2019 Telephone [facility] [address] [place] [address] Rajwinder Carter DO [address] [place] [address] Advice Allergies Active Allergy Reactions [...] 7.0% ([facility]) Inject 1 syringeful once weekly 4 Pre-filled [...] pain 01/24/2012 01/17/2017 Genetic Sleep Disorder Research Other*[id number] 05/13/2011 04/07/2016 Obstructive sleep apnea 01/18/2011 12/27/19 [...] Telephone Encounter - Shelly Hirsch LPN - 06/07/2019 4:21 PM EDT Marie calling from [facility]. Never received the PT and OT orders placed on 05/29. Printed and faxed to [phone]. Receipt confirmed. * Telephone Encounter - Jimy Ponce OSA - 06/07/2019 4:20 PM EDT Reason for patient's call: Issue with PT order fulfillment specialist was transferred to Shelly at the nurse line. * Telephone Encounter - Yanira Graves LPN - 06/03/2019 10:35 AM EDT Patient aware and verbalized understanding, will comply * Telephone Encounter - Silvia Patten OSA - 06/03/2019 10:29 AM EDT Reason for patient's call: returning call. Caller was transferred to Yanira at the nurse line. * Telephone Encounter - Rajwinder Carter DO - 06/02/2019 10:22 AM EDT It seems that pt's next step is SNF placement. I believe that she has a caser in through her insurance. That would be her next step to reach out to her to arrange placement. * Telephone Encounter - Giovana Lorenzo OSA - 05/31/2019 4:04 PM EDT Jesenia from [facility] calling stating that patient was denied by her insurance for inpatient rehab through them. Jesenia asking if senior living placement would be an optionfor the patient. Jesenia states that the patient will need assistance and that she is frustrated at home. Jesenia was just calling to let Dr. Carter know and see what next steps would be for patient. * Telephone Encounter - Carlos Germain LPN - 05/31/2019 3:51 PM EDT Pt states that she received a call from [facility] stating that she was denied by insurance [...] call: Pt was planning on going into [facility] for rehab, but she just learned that [...] last time. Caller was transferred to [facility] at the nurse line. documented in this encounter Plan of Treatment Upcoming Encounters Date Type Specialty Care Team Description 06/12/2019 Imaging Radiology 06/18/2019 Office Visit Optometry Jarett Schmitt, OD [address] [place], [place] [id number] 07/03/2019 Office Visit Family Medicine Rajwinder Carter DO [address], [place] [id number] 07/24/2019 Nutrition Services Gastroenterology Melissa Omalley RDN [address] [facility] [place] [address] [phone] 09/02/2019 Office Visit Gastroenterology Lyssa Stout CRNP [address] [place] [address] [phone] 12/31/2019 Office Visit Gynecology Obstetrics Rosaura Perez, MANAV [address] [place] [address] [phone] Health Maintenance Due Date Last Done Comments [...] Documents on File Type Date Recorded Patient Ignition Specialist Expl anation Advanced Directive service a kerri default Advanced Directive Advanced Directive Advanced Directive Advanced Directive Advanced Directive Advanced Directive Advanced Directive
--- OUTSIDE RECORDS SUMMARY | 2023-05-10 23:05 | External Medical Summary | Summary of Care ---
Author Name Unknown Organization [facility] Address [place] [address] Care Team Providers Care Container Repairer Name Role Phone Rajwinder Carter DO Primary Care Provider [phone] Reason for Visit * Reason Comments Referral Encounter Details Date Type Department Care Team Description 06/03/2019 Telephone [facility] [address] [place] [address] Rajwinder Carter DO [address] [place] [address] Referral Allergies Active Allergy Reactions Severity Noted Date Comments Penicillins Rash 02/12/2008 documented as of this encounter (statuses as of 06/12/2019) Medications Medication Sig Dispensed Refills Start Date End Date Status CENTRUM SILVER PO TABS 1 tab daily 1 Tab 0 05/25/2012 Active vitamin c (ASCORBIC ACID) 500 MG Tablet Take 500 mg by mouth daily. 0 Active MetFORMIN (GLUCOPHAGE) 1000 MG TabletIndications :Type 2 diabetes mellitus with hemoglobin A1c goal of less than 7.0% ([facility]) TAKE 1 TABLET BY MOUTH TWICE DAILY with food 60 Tab 4 12/26/2018 Active fluticasone (FLONASE) 50 MCG/ACT nasal sprayIndications: Sinus congestion Administer 2 Sprays into each nostril [...] than 7.0% ([facility]) Inject 1 syringeful once weekly 4 Pre-filled Pen Syringe Dosing Unit 5 05/06/2019 Active gabapentin (NEURONTIN) 300 MG Capsule One pill in am, one midday, two in pm, 180 Cap 5 05/06/2019 Active documented as of this encounter (statuses as of 06/12/2019) Active Problems Problem Noted Date Thrombocytopenia 05/02/2019 [...] as of this encounter (statuses as of 06/12/2019) Resolved Problems Problem Noted Date Resolved Date [...] pain 01/24/2012 01/17/2017 Genetic Sleep Disorder Research Other*[id number] 05/13/2011 04/07/2016 Obstructive sleep apnea 01/18/2011 12/27/19 [...] as of this encounter (statuses as of 06/12/2019) Immunizations Name Administration Dates Next Due HEP [...] Telephone Encounter - Jovana Lambert RN - 06/07/2019 8:47 AM EDT Called casey saw operator Rosibel to return call to direct nurses line not sure what she needs from the office Rosibel is off today Back Monday I gave her the private number to call I did get a letter from [facility] and an inpatient hospital was not approved I fimsed this Not in scanning yet * Telephone Encounter - Susan Rosales RN - 06/04/2019 8:28 AM EDT Called casey saw operator Rosibel to return call to direct nurses line not sure what she needs from the office * Telephone Encounter - Rajni Ng OSA - 06/03/2019 1:49 PM EDT Rosibel casey saw operator form pt insurance [facility] said pt is requesting to be admitted into [facility] admitted for subacute rehab Pt said she is declining and feels being admitted will be helpful since her spouse is not able to give her the assistance she needs Additional encounter for 9-20-19 is placed for inpatient rehab for another facility Please adv documented in this encounter Plan of Treatment Upcoming Encounters Date Type Specialty Care Team Description 06/18/2019 Office Visit Optometry Oskar Jaretttiffany Fritz, OD [address] [place] [address] 07/03/2019 Office Visit Family Medicine Rajwinder Carter, DO [address] [place], [place] [id number] 07/24/2019 Nutrition Services Gastroenterology Melissa Omalley RDN [address] [facility] [place] [address] 09/02/2019 Office Visit Gastroenterology Lyssa Stout CRNP [address] [facility] [place] [address] 12/31/2019 Office Visit Gynecology Obstetrics Rosaura Perez CNM [address] [facility] [place] [address] Health Maintenance [...] Documents on File Type Date Recorded Patient Renal Dialysis Rn Expl anation Advanced Directive service a kerri default Advanced Directive Advanced Directive Advanced Directive Advanced Directive Advanced Directive Advanced Directive Advanced Directive
--- OUTSIDE RECORDS SUMMARY | 2023-05-10 23:05 | External Medical Summary | Summary of Care ---
Author Name Unknown Organization [facility] Address [place] [address] Care Team Providers Care Atomic Physics Teacher Name Role Phone JohnbrianRajwinder thacker Primary Care Provider [phone] Reason for Visit * Reason Comments Test Results Encounter Details Date Type Department Care Team Description 06/07/2019 Telephone [facility] [place] [address] Lyssa Stout CRNP [address] [facility] [place] [address] [phone] Test Results Allergies Active Allergy Reactions Severity [...] goal of less than 7.0% ([facility]) Inject 1 syringeful once weekly 4 Pre-filled [...] pain 01/24/2012 01/17/2017 Genetic Sleep Disorder Research Other*[id number] 05/13/2011 04/07/2016 Obstructive sleep apnea 01/18/2011 12/27/19 [...] Telephone Encounter - Lyssa Stout CRNP - 06/14/2019 11:04 AM EDT I just spoke w her this morning about her u/s results. I told her that it was her Nadolol which wasincreased at her last visit from 20mg to 40mg. And I had sent new Rx to [facility] * Telephone Encounter - Giovana Lorenzo OSA [...] Office Visit Optometry Jarett Schmitt, OD [address] [place] [address] 07/03/2019 Office Visit Family Medicine Rajwinder Carter, DO [address] [place] [address] [phone] 07/24/2019 Nutrition Services Gastroenterology Melissa Omalley, RDN [address] [place] [id number] 09/02/2019 Office Visit Gastroenterology Lyssa Stout CRNP [address] [facility] [place] [address] 12/31/2019 Office Visit Gynecology Obstetrics Rosaura Perez CNM [address] [facility] [place] [address] Health Maintenance Due [...] on File Type Date Recorded Patient Certified Paralegal Expl anation Advanced Directive service a kerri default Advanced Directive Advanced Directive Advanced Directive Advanced Directive Advanced Directive Advanced Directive Advanced Directive
--- OUTSIDE RECORDS SUMMARY | 2023-05-10 23:06 | External Medical Summary | Summary of Care ---
Author Name Unknown Organization [place] [address] Care Team Providers Care Steward/Stewardess Lounge Name Role Phone JohnbrianRajwinder thacker Primary Care Provider [phone] Reason for Visit * Reason Comments eRx-Medication Refill Encounter Details Date Type Department Care Team Description 06/05/2019 Refill [facility] [address], [place] [id number] Brianne Pal PA-C [address], [place] [phone] Sleep disturbances Allergies Active Allergy Reactions Severity Noted Date Comments Penicillins Rash 02/12/2008 documented as of this encounter (statuses as of 06/06/2019) Medications Medication Sig Dispensed Refills Start Date [...] in pm, 180 Cap 5 9 Active nadolol (CORGARD) 20 MG Tablet TAKE 1 TABLET BY MOUTH ONCE DAILY 30 Tab 3 9 Active traZODone (DESYREL) 50 MG TabletIndications:S leep disturbances TAKE 1 TABLET BY MOUTH AT BEDTIME 30 Tab 4 9 Active tamsulosin (FLOMAX) 0.4 MG Capsule TAKE 1 CAPSULE BY MOUTH ONCE DAILY 30 Cap 3 9 Active escitalopram (LEXAPRO) 20 MG Tablet TAKE 1 TABLET BY MOUTH ONCE DAILY 30 Tab 5 9 Active levothyroxine (LEVOXYL) 150 MCG [...] as of this encounter (statuses as of 06/06/2019) Active Problems Problem Noted Date Thrombocytopenia 05/02/2019 [...] as of this encounter (statuses as of 06/06/2019) Resolved Problems Problem Noted Date Resolved Date [...] pain 01/24/2012 01/17/2017 Genetic Sleep Disorder Research Other*[id number] 05/13/2011 04/07/2016 Obstructive sleep apnea 01/18/2011 12/27/19 [...] as of this encounter (statuses as of 06/06/2019) Immunizations Name Administration Dates Next Due HEP [...] Telephone Encounter - Rajwinder Lara DO - 06/06/2019 11:59 AM EDT Signed Prescriptions: Disp Refills nadolol (CORGARD) 20 MG Tablet 30 Tab 3 Sig: TAKE 1 TABLET BY MOUTH ONCE DAILY Authorizing Provider: RAJWINDER LARA traZODone (DESYREL) 50 MG Tablet 30 Tab 4 Sig: TAKE 1 TABLET BY MOUTH AT BEDTIME Authorizing Provider: RAJWINDER LARA Ordering User: LURDES ZAVALA tamsulosin (FLOMAX) 0.4 MG Capsule 3 0 Cap 3 Sig: TAKE 1 CAPSULE BY MOUTH ONCE DAILY Authorizing Provider: RAJWINDER LARA escitalopram (LEXAPRO) 20 MG Tablet 30 Tab 5 Sig: TAKE 1 TABLET BY MOUTH ONCE DAILY Authorizing Provider: RAJWINDER LARA Ordering User: LURDES ZAVALA * Telephone Encounter - Kiesha Schmitt LPN - 06/06/2019 11:58 AM EDT Pending Prescriptions: Disp Refills nadolol (CORGARD) 20 MG Tablet [Pharmacy *30 Tab 3 Sig: TAKE 1 TABLET BY MOUTH ONCE DAILY tamsulosin (FLOMAX) 0.4 MG Capsule [Pharm*30 Cap 3 Sig: TAKE 1 CAPSULE BY MOUTH ONCE DAILY Signed Prescriptions: Disp Refills traZODone (DESYREL) 50 MG Tablet 30 Tab 4 Sig: TAKE 1 TABLET BY MOUTH AT BEDTIME Authorizing Provider: RAJWINDER LARA Ordering User: LURDES ZAVALA escitalopram (LEXAPRO) 20 MG Tablet 30 Tab 5 Sig: TAKE 1 TABLET BY MOUTH ONCE DAILY Authorizing Provider: RAJWINDER LARA Ordering User: LURDES ZAVALA * Telephone Encounter - Lurdes Zavala [facility] - 06/06/2019 10:26 AM EDT Pending Prescriptions: Disp Refills nadolol (CORGARD) 20 MG Tablet [Pharmacy *30 Tab 3 Sig: TAKE 1 TABLET BY MOUTH ONCE DAILY tamsulosin (FLOMAX) 0.4 MG Capsule [Pharm*30 Cap 3 Sig: TAKE 1 CAPSULE BY MOUTH ONCE DAILY Signed Prescriptions: Disp Refills traZODone (DESYREL) 50 MG Tablet 30 Tab 4 Sig: TAKE 1 TABLET BY MOUTH AT BEDTIME Authorizing Provider: RAJWINDER LARA Ordering User: LURDES ZAVALA escitalopram (LEXAPRO) 20 MG Tablet 30 Tab 5 Sig: TAKE 1 TABLET BY MOUTH ONCE DAILY Authorizing Provider: RAJWINDER LARA Ordering User: LURDES ZAVALA * Telephone Encounter - Lurdes Zavala [facility] - 06/06/2019 10:23 AM EDT Please see pharmacy requests for Nadolol and Tamsulosin. It looks like meds were D/C'd during shelter stay with no documentation available to confirm. Please review and approve if appropriate. * Telephone Encounter - Lurdes Zavala [facility] - 06/06/2019 10:18 AM EDT Pending Prescriptions: Disp Refills nadolol (CORGARD) 20 MG Tablet [Pharmacy *30 Tab 3 Sig: TAKE 1 TABLET BY MOUTH ONCE DAILY traZODone (DESYREL) 50 MG Tablet [Pharmac*30 Tab 4 Sig: TAKE 1 TABLET BY MOUTH AT BEDTIME tamsulosin (FLOMAX) 0.4 MG Capsule [Pharm*30 Cap 3 Sig: TAKE 1 CAPSULE BY MOUTH ONCE DAILY escitalopram (LEXAPRO) 20 MG Tablet [Phar*30 Tab 3 Sig: TAKE 1 TABLET BY MOUTH ONCE DAILY Last Office Visit: 06/05/2019 Next Office Visit: 07/03/2019 Scheduled Provider(s): Rajwinder Lara, DO If no future appointments scheduled, and last appointment is greater than a year ago, please schedule patient for a follow-up appointment /Last date the medication was ordered: D/c'd, 11/29/18, D/C'd, 12/26/18 Pharmacy: [id number] [address] [facility] Is this request for a controlled substance?No Urine Drug Screen:No results found. However, due to the size of the patient record, not all encounters were searched. Please check Results Review for a complete set of results. Patient Phone Numbers Labs: Lab Results Component Value Date/Time CREAT 0.7 04/17/2019 06:37 AM POTASSIUM 3.6 04/17/2019 06:37 AM TSH 3.16 04/05/2019 06:40 AM LDLCALC 43 04/05/2019 06:40 AM LDLDIRECT 57 10/11/2017 01:18 PM ALT 38 (H) 04/05/2019 06:40 AM HGBA1C 6.5 (H) 04/05/2019 06:40 AM * Telephone Encounter - Jaci Bangura CPhT - 06/06/2019 10:01 AM EDT [facility] called to ask if this patients is still taking Tamsulosin and Nadolol meds are discontinued on med list please advise pharmacy [phone] Thanks, Jaci Bangura Strategic Alliances Manager Pharmacy Refill Call Center 06/06/2019,10:05 AM documented in this encounter Plan of Treatment Upcoming Encounters Date Type Specialty Care Team Description 06/06/2019 Office Visit [facility] [address] [facility] [place] [address] [phone] 06/18/2019 Office Visit Optometry Jarett Schmitt, OD [address] [place] [address] 07/03/2019 Office Visit Family Medicine Rajwinder Lara, DO [address] [place] [address] 07/24/2019 Nutrition Services Gastroenterology Melissa Omalley, SAMANTHA [address] [place] [address] [phone] 12/31/2019 Office Visit Gynecology Obstetrics Rosaura Perez CNM [address] [facility] [place] [address] [phone] Health Maintenance Due Date Last Done Comments [...] Documents on File Type Date Recorded Patient Centrifugal Chiller Technician Expl anation Advanced Directive service a kerri default Advanced Directive Advanced Directive Advanced Directive Advanced Directive Advanced Directive Advanced Directive Advanced Directive
--- OUTSIDE RECORDS SUMMARY | 2023-05-10 23:06 | External Medical Summary | Summary of Care ---
Author Name Unknown Organization [facility] [place] [address] Care Team Providers Care Greenhouse Assistant Name Role Phone Rajwinder Carter DO Primary Care Provider [phone] Reason for Visit * Reason Comments Emergency Department Follow-Up Medication Administration Flu and/or Pne umo Inj Encounter Details Date Type Department Care Team Description 06/05/2019 Office Visit [place] [facility] [address], [place] [id number] Rajwinder Carter DO [address] [place] [address] [phone] Cerebral palsy, unspecified type (HCC)*; Falls frequently; Abnormality of gait; Need for prophylactic vaccination and inoculation against influenza Allergies Active Allergy Reactions Severity Noted Date Comments Penicillins Rash 02/12/2008 documented as of this encounter (statuses as of 06/05/2019) Medications Medication Sig Dispensed Refills Start Date End Date Status CENTRUM SILVER PO TABS 1 tab daily 1 Tab 0 05/25/2012 Active vitamin c (ASCORBIC ACID) 500 MG Tablet Take 500 mg by mouth daily. 0 Active levothyroxine (LEVOXYL) 150 MCG TabletIndications:Ac quired hypothyroidism Take 1 Tab by mouth daily. (at least 30 min prior to breakfast or other meds) 30 Tab 11 05/18/2018 Active potassium chloride ER 10 MEQ TBCRIndications:Hypo kalemia With food. Pt reports only taking once dailly. 60 Tab 5 05/18/2018 Active oxybutynin (DITROPAN) 5 MG Tablet Take 1 Tab by mouth 2 times a day. Through urology 60 Tab 5 05/29/2018 Active Aspirin 81 MG Tablet Take 1 Tab by mouth daily. 34 Tab 5 11/06/2018 Active traZODone (DESYREL) 50 MG TabletIndications:Sl eep disturbances TAKE 1 TABLET BY MOUTH AT BEDTIME 30 Tab 5 11/29/2018 Active escitalopram (LEXAPRO) 20 MG Tablet TAKE 1 TABLET BY MOUTH ONCE DAILY 30 Tab 4 12/26/2018 Active MetFORMIN (GLUCOPHAGE) 1000 MG TabletIndications:Ty pe [...] Pen Syringe Dosing Unit 5 05/06/2019 Active cyclobenzaprine (FLEXERIL) 10 MG Tablet Take 1 Tab by mouth at bedtime. 30 Tab 0 05/06/2019 Active gabapentin (NEURONTIN) 300 MG Capsule One pill in am, one midday, two in pm, 180 Cap 5 05/06/2019 Active documented as of this encounter (statuses as of 06/05/2019) Active Problems Problem Noted Date Thrombocytopenia 05/02/2019 [...] as of this encounter (statuses as of 06/05/2019) Resolved Problems Problem Noted Date Resolved Date [...] pain 01/24/2012 01/17/2017 Genetic Sleep Disorder Research Other*[id number] 05/13/2011 04/07/2016 Obstructive sleep apnea 01/18/2011 12/27/19 [...] as of this encounter (statuses as of 06/05/2019) Immunizations Name Administration Dates Next Due HEP [...] Sign Reading Time Taken Comments Blood Pressure 114/66 06/05/2019 11:56 AM EDT Pulse 68 06/05/2019 11:56 AM EDT Temperature 36.8 C (98.2 F) 06/05/2019 11:56 AM E DT Respiratory Rate 18 06/05/2019 11:56 AM EDT Oxygen Saturation - - Inhaled Oxygen Concentration - - Weight - - Height - - Body Mass Index - - documented in this encounter Progress Notes * Shannan Bojorquez LPN - 06/05/2019 12:21 PM EDT PRE - ADMINISTRATION DOCUMENTATION Are you allergic to latex? No Are you experiencing any cold symptoms or fever? No Have you had Guillain-Harrell Syndrome (an illness that causes paralysis)? No Have you had the flu shot in the past? YES Have you ever had a reaction to the flu shot? No Shannan Bojorquez LPN, 06/05/2019 12:21 PM Immunization Administration Documentation Time Out Procedure Performed: Yes Patient Identified (Ask Name/Date of ): Yes Does the patient have a fever greater than 101 degrees today? No Patient allergic to latex? No VFC Stock: No Immunization(s) verified: Yes, Immunization Name: Flu, VIS Sheet(s) given: Yes Verified Side and Site: Yes Verified Shot(s) with Parent(s)/Patient: Yes * Rajiwnder Carter DO - 06/05/2019 12:00 PM EDT SUBJECTIVE: Chief Complaint Patient presents with Emergency Department Follow-Up Medication Administration Flu and/or Pneumo Inj HPI: Shaina Bustos is a 64 year old female who presents today for ED follow-up. Pt was Pt states that her vocational case manager is having difficulty getting her placed. She notes that she was told to go back upto the ED to see if they could get her placed. It is really unclear what is going on. Pt states that she is not able to walk really at all. She may be able to stand for a minute by her bed. They havea Svetlana lift at home now. She has had PT/OT in her home but reports that they did not get her out of bed. states that they seemed to be afraid to do much more as she falls. She has caregiversin to bath her. They are hoping to increase this to 40 hours in June. She has 25 hours currently. PHM: Patient Active Problem List Diagnosis Code [...] Chronic pain syndrome G89.4 MEDICATION USE AGREEMENT [id number] History of Clostridium difficile colitis Z86.19 Cirrhosis of liver ([facility]) K74.60 THAD on CPAP G47.33, Z99.89 Wheelchair dependent Z99.3 History of recent fall Z91.81 Pancytopenia ([facility]) D61.818 Ambulatory dysfunction R26.2 Fall W19.XXXA Sprain of right ankle S93.401A DM type 2 with diabetic peripheral neuropathy ([facility]) E11.42 Insomnia G47.00 Recurrent major depressive disorder, in partial remission ([facility]) F33.41 Impaired mobility and ADLs Z74.09 Generalized weakness R53.1 Gastroesophageal reflux disease K21.9 History of kidney stones Z87.442 History of Achilles tendon repair Z98.890 History of delivery Z98.891 History of MRSA infection Z86.14 History of migraine Z86.69 Anemia D64.9 Fibromyalgia M79.7 Achilles tendinitis, right leg M76.61 DNR (do not resuscitate) Z66 Thrombocytopenia ([facility]) D69.6 Current Outpatient Medications Medication Sig Dispense Refill cyclobenzaprine (FLEXERIL) 10 MG Tablet Take 1 Tab by mouth at bedtime. 30 Tab 0 Dulaglutide (TRULICITY) 1.5 MG/0.5ML [...] into each nostril daily. 1 Inhaler 5 escitalopram (LEXAPRO) 20 MG Tablet TAKE 1 TABLET BY MOUTH ONCE DAILY 30 Tab 4 MetFORMIN (GLUCOPHAGE) 1000 MG Tablet TAKE 1 TABLET BY MOUTH TWICE DAILY with food 60 Tab 4 traZODone (DESYREL) 50 MG Tablet TAKE 1 TABLET BY MOUTH AT BEDTIME 30 Tab 5 Aspirin 81 MG Tablet Take 1 Tab by mouth daily. 34 Tab 5 oxybutynin (DITROPAN) 5 MG Tablet Take 1 Tab by mouth 2 times a day. Through urology 60 Tab 5 levothyroxine (LEVOXYL) 150 MCG Tablet Take 1 Tab by mouth daily. (at least 30 min prior to breakfast or other meds) 30 Tab 11 potassium chloride ER 10 MEQ TBCR With food. Pt reports only taking once dailly. 60 Tab 5 vitamin c (ASCORBIC ACID) 500 MG [...] (RECTUM) 10/04/2016 normal bx, repeat 10 yrs/[facility] DENTAL SURGERY PROCEDURE NEC wisdom teeth x 4 DILATION AND CURETTAGE (D&C) EGD, FLEXIBLE, DIAGNOSTIC 10/04/2016 gastritis/[facility] EGD, FLEXIBLE, DIAGNOSTIC 01/11/2018 eso varices, retained food, repeat 1 yr/[facility] PELVIS/HIP JOINT SURGERY NEC teenager aid in walking REPAIR/GRAFT ACHILLES TENDON age 40 aid in walking Review of patient's allergies indicates: Allergen Reactions Pcn [Penicillins] Rash Family History Problem Relation Age of Onset Heart Disorder Father of [place] at age 61 Diabetes Father Heart Disorder Mother of [place] age 72 Cancer None Arthritis None Stroke [...] Used Substance Use Topics Alcohol use: No OBJECTIVE: BP 114/66 | Pulse 68 | Temp (Src) 98.2 (Tympanic) | Resp 18 | Wt (0.000kg) PHYSICAL EXAM: Physical Exam Constitutional: She appears well-developed and well-nourished. No distress. Cardiovascular: Normal rate, regular rhythm and normal heart sounds. Exam reveals no gallop and no friction rub. No murmur heard. Pulmonary/Chest: Effort normal and breath sounds normal. No respiratory distress. She has no wheezes. She has no rales. Abdominal: Soft. Bowel sounds are normal. She exhibits no distension. There is no tenderness. Thereis no guarding. Musculoskeletal: Normal range of motion. She exhibits edema (+1 pitting edema of B/L LE). She exhibits no tenderness or deformity. Skin: Skin is warm and dry. No rash noted. No erythema. No pallor. ASSESSMENT/PLAN: (G80.9) Cerebral palsy, unspecified type (HCC) (primary encounter diagnosis) (R29.6) Falls frequently (R26.9) Abnormality of gait Plan: Pt has wheelchair, svetlana lift and aides in the home. Her waiver services will increase in June. We have asked her caseworker to call the office to clarify what exactly is going on with placement. Pt very confused by this today. (Z23) Need for prophylactic vaccination and inoculation against influenza Plan: INFLUENZA VACC, QUAD, PF, 6 MONTHS & UP, 0.5 ML, IM Vaccine given. See admin record. Follow-up: As needed and for routine care. Rajwinder Carter DO documented in this encounter Nursing Notes * Shannan Bojorquez LPN - 06/05/2019 12:01 PM EDT ER follow up. documented in this encounter Plan of Treatment Upcoming Encounters Date Type Specialty Care Team Description 06/06/2019 Office Visit Gastroenterology Lyssa Stout CRNP [address] [facility] [place] [address] [phone] 06/18/2019 Office Visit Optometry Jarett Schmitt, OD [address] [place] [address] 07/03/2019 Office Visit Family Medicine Rajwinder Carter DO [address], [place] [phone] 07/24/2019 Nutrition Services Gastroenterology Melissa Omalley RDN [address] [place] [address] [facility] [place] [address] [phone] 12/31/2019 Office Visit Gynecology Obstetrics Rosaura Perez CNM [address] [facility] [place] [address] [phone] Health Maintenance Due Date Last Done Comments BREAST CANCER SCREENING DISCUSSION YEARLY AGES 40-75 04/04/2019 04/04/2018, 01/18/2017, 01/17/2017 (Discussed), Additional history exists Influenza Vaccine (FLU shot) (#1) 2019 05/16/2018, 07/10/2017, 06/07/2016, Additional history exists DIABETES-EYE EXAM 06/12/2019 06/12/2018, [...] to 64 Years) Completed 05/02/2019, 06/01/2010 MENINGOCOCCAL (MENACTRA) Aged Out No longer eligible based on patient's age to complete this topic documented as of this encounter Implants Not on filedocumented as of this encounter Visit Diagnoses Diagnosis Cerebral palsy, unspecified type (HCC)- Primary Falls frequently Personal history of fall Abnormality of gait Need for prophylactic vaccination and inoculation against influenza documented in this encounter Advance Directives Documents on File Type Date Recorded Patient Community Organizer Expl anation Advanced Directive service a kerri default Advanced Directive Advanced Directive Advanced Directive Advanced Directive Advanced Directive Advanced Directive Advanced Directive"
--- OUTSIDE RECORDS SUMMARY | 2023-05-10 23:06 | External Medical Summary | Summary of Care ---
Author Name Unknown Organization [facility] Address [place] [address] Care Team Providers Care Wrapper Operator Name Role Phone Rajwinder Carter DO Primary Care Provider [phone] Reason for Visit * Reason Comments Advice Encounter Details Date Type Department Care Team Description 05/31/2019 Telephone [facility] [address] [place] [address] Rajwinder Carter DO [address] [place], [place] [id number] Advice Allergies Active Allergy Reactions Severity Noted Date Comments Penicillins Rash 02/12/2008 documented as of this encounter (statuses as of 06/03/2019) Medications Medication Sig Dispensed Refills Start Date [...] as of this encounter (statuses as of 06/03/2019) Active Problems Problem Noted Date Thrombocytopenia 05/02/2019 [...] as of this encounter (statuses as of 06/03/2019) Resolved Problems Problem Noted Date Resolved Date [...] pain 01/24/2012 01/17/2017 Genetic Sleep Disorder Research Other*[id number] 05/13/2011 04/07/2016 Obstructive sleep apnea 01/18/2011 12/27/19 [...] as of this encounter (statuses as of 06/03/2019) Immunizations Name Administration Dates Next Due HEP [...] will comply * Telephone Encounter - Silvia Patten, THAD - 06/03/2019 10:29 AM EDT Reason for patient's call: returning call. Caller was transferred to [facility] at the nurse line. * Telephone Encounter - Rajwinder Carter DO - 06/02/2019 10:22 AM EDT It seems that pt's next step is SNF placement. I believe that she has a outpatient case manager through her insurance. That would be her next step to reach out to her to arrange placement. * Telephone Encounter - Giovana Lorenzo, THAD - 05/31/2019 4:04 PM EDT Jesenia from [facility] stating that patient was denied by her insurance for inpatient rehab through them. Jesenia asking if correction placement would be an optionfor the patient. Jesenia states that the patient will need assistance and that she is frustrated at home. Jesenia was just calling to let Dr. Carter know and see what next steps would be for patient. * Telephone Encounter - Carlos Germain LPN - 05/31/2019 3:51 PM EDT Pt states that she received a call from [facility] stating that she was denied by [...] call: Pt was planning on going into [facility] for rehab, but she just learned that [...] the last time. Caller was transferred to [facility] at the nurse line. documented in this encounter Plan of Treatment Upcoming Encounters Date Type Specialty Care Team Description 06/06/2019 Office Visit Gastroenterology Lyssa Stout CRNP [address] [facility] [place] [address] [phone] 06/18/2019 Office Visit Optometry Jarett Schmitt, OD [address] [place] [address] 07/03/2019 Office Visit Family Medicine Rajwinder Carter, DO [address] [place], [place] [address] 07/24/2019 Nutrition Services Gastroenterology Melissa Omalley, RDN [address] [place] [address] 12/31/2019 Office Visit Gynecology Obstetrics Rosaura Perez CNM [address] [facility] [place] [address] [phone] Health Maintenance Due Date Last Done Comments [...] Documents on File Type Date Recorded Patient Collection Systems Foreman Expl anation Advanced Directive service a kerri default Advanced Directive Advanced Directive Advanced Directive Advanced Directive Advanced Directive Advanced Directive Advanced Directive
--- OUTSIDE RECORDS SUMMARY | 2023-05-10 23:06 | External Medical Summary ---
Author Name Unknown Address [address] [facility] [place] [address] Phone Organization K0G:[facility] [address] [facility] [place] [address] Laboratory Report Ordering Provider Test Date Status NASEEMODESSA 06/06/2019 13:03:00 Final Observation Date Value Abnormality Reference Status BUN 06/06/2019 14:58 11 6-20 Fin al Creatinine 06/06/2019 14:58 0.6 0.5-1.0 Fi nal Performing Location [facility] [address] [place] [address]
--- OUTSIDE RECORDS SUMMARY | 2023-05-10 23:06 | External Medical Summary ---
Author Name Unknown Address [address] [facility] [place] [address] Phone Organization K0G:[facility] [address] [facility] [place] [address] Laboratory Report Ordering Provider Test Date Status ODESSA GUMSAN INSURANCE CASE MANAGER 06/06/2019 13:03:00 Final Observation Date Value Abnormality Reference Status WBC, Total 06/06/2019 13:50 2.78 Below low normal 4.00- 10.80 Final RBC 06/06/2019 13:50 3.36 Below low normal 3.85-5 .15 Final Hemoglobin 06/06/2019 13:50 10.5 Below low normal 12.0- 15.3 Final HCT 06/06/2019 13:50 34.4 Below low normal 36.0-4 5.2 Final MCV 06/06/2019 13:50 102.4 Above high normal 81.5- 97.5 Final MCH 06/06/2019 13:50 31.3 27.0-34.0 Fin al MCHC 06/06/2019 13:50 30.5 Below low normal 32.0-3 6.0 Final RDW 06/06/2019 13:50 16.9 Above high normal 11.5- 15.5 Final Platelets 06/06/2019 13:50 74 Below low normal 140-40 0 Final MPV 06/06/2019 13:50 13.4 Above high normal 6.6-1 1.1 Final Segs 06/06/2019 13:50 55.7 40-75 Fin al Lymphs % 06/06/2019 13:50 24.8 18-42 Fin al Monos 06/06/2019 13:50 11.2 Above high normal 1-11 Final Eosinophils 06/06/2019 13:50 7.6 Above high normal 0-6 Final Basos 06/06/2019 13:50 0.7 0-2 Fin al Neutrophils Bld 06/06/2019 13:50 1.55 Below low normal 1.8-7.7 Final Lymphs, absolute 06/06/2019 13:50 0.69 Below low normal 1.0-4.8 Final Monos, Abs 06/06/2019 13:50 0.31 0.0-1.1 Fi nal Eos, Abs 06/06/2019 13:50 0.21 0.0-0.7 Fin al Basos, Abs 06/06/2019 13:50 0.02 0.0-0.2 Fi nal Hypochromia Bld Ql Smear 06/06/2019 13:50 SLIGHT Final Macrocytes Bld Ql Smear 06/06/2019 13:50 PRESENT Final Ovalocytes Bld Ql Smear 06/06/2019 13:50 FEW Final Performing Location [facility] [address] [facility] [address]
--- OUTSIDE RECORDS SUMMARY | 2023-05-10 23:06 | External Medical Summary | Summary of Care ---
Author Name Unknown Organization [facility] Address [place] [address] Care Team Providers Care C Developer Name Role Phone Rajwinder Carter DO Primary Care Provider [phone] Reason for Visit * Reason Comments Emergency Department Follow-Up Encounter Details Date Type Department Care Team Description 06/04/2019 Telephone [facility] [address] [place], [place] [phone] Rajwinder Carter DO [address] [place], [place] [phone] Emergency Department Follow-Up Allergies Active Allergy Reactions Severity Noted Date Comments Penicillins Rash 02/12/2008 documented as of this encounter (statuses as of 06/04/2019) Medications Medication Sig Dispensed Refills Start Date [...] as of this encounter (statuses as of 06/04/2019) Active Problems Problem Noted Date Thrombocytopenia 05/02/2019 [...] as of this encounter (statuses as of 06/04/2019) Resolved Problems Problem Noted Date Resolved Date [...] pain 01/24/2012 01/17/2017 Genetic Sleep Disorder Research Other*[id number] 05/13/2011 04/07/2016 Obstructive sleep apnea 01/18/2011 12/27/19 [...] as of this encounter (statuses as of 06/04/2019) Immunizations Name Administration Dates Next Due HEP [...] Telephone Encounter - Shelly Hirsch LPN - 06/04/2019 12:52 PM EDT Emergency Department Follow Up: When was patient seen: last night Which ED: [facility] What were they seen for: abdominal pain What testing did they have done: lab work and ct scan What did ED think was wrong (dx): pulled muscle Any new medications prescribed: no How is patient feeling today: better Patient concerns today: no Placed tomorrow with Dr. Carter at 11:40 a.m. * Telephone Encounter - Dominique Franco OSA - 06/04/2019 12:47 PM EDT Reason for patient's call: ER follow up [facility] ER 06-03-2019 for pain in her side Caller was transferred to [facility] at the nurse line. documented in this encounter Plan of Treatment Upcoming Encounters Date Type Specialty Care Team Description 06/05/2019 Office Visit Family Medicine [facility]winder Carter DO [address] [facility] [place] [address] [phone] 06/06/2019 Office Visit Gastroenterology Lyssa Stout CRNP [address] [facility] [place] [address] [phone] 06/18/2019 Office Visit Optometry Jarett Schmitt, OD [address] [place] [address] 07/03/2019 Office Visit Family Medicine Rajwinder Carter DO [address] [facility] [place] [address] [phone] 07/24/2019 Nutrition Services Gastroenterology Melissa Omalley RDN [address] [facility] [place] [address] [phone] 12/31/2019 Office Visit Gynecology Obstetrics Rosaura Perez CNM [address] [facility] [place] [address] [phone] Health Maintenance Due Date Last Done Comments [...] Type Date Recorded Patient Web Press Operator Assistant Expl anation Advanced Directive service a kerri default Advanced Directive Advanced Directive Advanced Directive Advanced Directive Advanced Directive Advanced Directive Advanced Directive
--- OUTSIDE RECORDS SUMMARY | 2023-05-10 23:06 | External Medical Summary | Summary of Care ---
Author Name Unknown Organization [facility] Address [place] [address] Care Team Providers Care Peanut Sorter Name Role Phone JohnbrianRajwinder thacker Primary Care Provider [phone] Reason for Visit * Reason Comments Re-Check follow up 3 month - cirrhosis, NG, and pancreatic cyst Encounter Details Date Type Department Care Team Description 06/06/2019 Office Visit Gastroenterology, [facility] 132 [facility] [place] [address] Lyssa Stout CRNP [address] [place] [address] [phone] NAFLD (nonalcoholic fatty liver disease)*; Cirrhosis of [...] mouth daily. 60 Tab 3 9 Active nadolol (CORGARD) 20 MG Tablet TAKE 1 TABLET BY MOUTH ONCE DAILY 30 Tab 3 9 06/06/20 19 Discontinued escitalopram (LEXAPRO) 20 MG Tablet Take 1 Tab by mouth daily. 30 Tab 4 9 06/06/20 19 Discontinued traZODone (DESYREL) 50 MG TabletIndications:S leep disturbances Take 1 Tab by mouth at bedtime. 30 Tab 5 9 06/06/20 19 Discontinued documented as of this [...] pain 01/24/2012 01/17/2017 Genetic Sleep Disorder Research Other*[id number] 05/13/2011 04/07/2016 Obstructive sleep apnea 01/18/2011 12/27/19 [...] Sign Reading Time Taken Comments Blood Pressure 112/68 06/06/2019 12:36 PM EDT Pulse 80 06/06/2019 12:36 PM EDT Temperature 36.5 C (97.7 F) 06/06/2019 1 2:36 PM EDT Respiratory Rate - - Oxygen Saturation - - Inhaled Oxygen Concentration - - Weight 116.1 kg (256 lb) 06/06/2019 12: 36 PM EDT per pt , this nurse unable to weight Height - - Body Mass Index 51.71 05/22/2019 12:29 PM EDT documented in this encounter Progress Notes * Lyssa Stout CRNP - 06/06/2019 12:41 PM EDT DATE OF SERVICE: 06/06/19 CC: F/U NALFD cirrhosis HPI: 09/20/16 - [...] for f/u cirrhosis. She had been to [facility] ED twice within last week (11/17, [...] has PCP appt next week and upcoming [employer] appt for eval of possible uterine bleeding. [...] month while walking w walker. Went to [facility] ED on 07/11 for kidney stones. Denies any fever, chills, CP, SOB, abd pain, distension, jaundice. [place] she lost some weight. Noted less edema on legs. 09/24/18: Pt here for f/u. Was at [facility] but discharged. Notes in ED visit recently 08/24/18 and by PCP notes that she is having some stressors at home, preferred when she was placedin snf where she's getting food and meds regularly. [...] every other day. No dark tarry stools. Past Medical History: Diagnosis Date Chronic hypoxemic [...] Heart Disorder Mother of [place] age 72 Cancer None Arthritis None Stroke None Heart Disorder Sister Mi at age 46 Hypertension Sister Mental Disorder None Past Surgical History: Procedure Laterality Date DELIVERY 04/20/1982 COLONOSCOPY 04/21/09 repeat in 10 years COLONOSCOPY, DIAGNOSTIC (RECTUM) 10/04/2016 normal bx, repeat 10 yrs/[facility] DENTAL SURGERY PROCEDURE NEC wisdom teeth x 4 DILATION AND CURETTAGE (D&C) EGD, FLEXIBLE, DIAGNOSTIC 10/04/2016 gastritis/[facility] EGD, FLEXIBLE, DIAGNOSTIC 01/11/2018 eso varices, retained food, repeat 1 yr/[facility] PELVIS/HIP JOINT SURGERY NEC teenager aid [...] Tab 10 nadolol (CORGARD) 20 MG Tablet TAKE 1 TABLET BY MOUTH ONCE DAILY 30 Tab 3 potassium chloride ER 10 MEQ [...] into each nostril daily. 1 Inhaler 5 MetFORMIN (GLUCOPHAGE) 1000 MG Tablet TAKE 1 TABLET BY MOUTH TWICE DAILY with food 60 Tab 4 oxybutynin (DITROPAN) 5 MG Tablet Take 1 Tab by mouth 2 times a day. Through urology 60 Tab 5 vitamin c (ASCORBIC ACID) 500 MG Tablet Take 500 mg by mouth daily. CENTRUM SILVER PO TABS 1 tab daily 1 Tab 0 REVIEW OF SYSTEMS: See HPI above; All other findings negative. Filed Vitals: 06/06/19 1236 BP: 112/68 Pulse: 80 Temp: 36.5 C (97.7 F) Weight: 116.1 kg (256 lb) GENERAL: Well developed and well nourished, in [...] NEURO: No lateralizing findings. Sensory/Motor grossly normal. 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 MELD 6. -Labs today: Cbc/diff Compr metab panel Pt/inr Obtain MELD labs q3-6months - Last EGD: 02/22/1919 Grade II non bleeding varices, portal HTN. F/U in 1 yr's time. I will increase her Nadolol to 40mg daily, HR goal 55-65. She is asked to return for RN visit to check BP and HR in 1 month's time. - Last Colonoscopy: 2016 - int hemorrhoids, due for repeat in 10 yrs. - Hep A immunity: completed series - Hep B immunity: completed series - HCC screening [id number]: unable to obtain AFP due to lack of insurance coverage. MRI obtained 11/05/18 w signs of cirrhosis, splenomegaly, no signs of liver mass. Will obtain RUQ U/S for HCC screening. - Pancreas head lesion, evaluated via EUS in 02/22/19, too small (5 x 10mm) for aspiration but likely IPMN. Will plan for MRI eval in 1 yr's time. - Encouraged to abstain from ETOH, illicit drugs, APAP no more than 2g daily - Low salt (2g) daily - Advised good control of blood sugars RTC: 3-6months; or sooner prn. ZAK Schreiber [facility], [facility] documented in this encounter Nursing Notes * Sabine Valencia LPN - 06/06/2019 12:39 PM EDT Patient identified by name and date of . Chief Complaint Patient presents with Re-Check follow up 3 month - cirrhosis, NG, and pancreatic cyst Symptoms: NO symptoms Bowel Movement Frequency: every other day Bowel Movement Consistency: varies Straining: no Rectal Pain: no Blood in Stool: No documented in this encounter Plan of Treatment Upcoming Encounters Date Type Specialty Care Team Description 06/12/2019 Imaging Radiology 06/18/2019 Office Visit Optometry Oskar Jarett Lam, OD [address] [place] [address] 07/03/2019 Office Visit Family Medicine Rajwinder Carter, DO [address] [place], [place] [id number] 07/24/2019 Nutrition Services Gastroenterology Melissa Omalley, SAMANTHA [address] [place] [address] [phone] 09/02/2019 Office Visit Gastroenterology Lyssa Stout CRNP [address] [place] [address] 12/31/2019 Office Visit Gynecology Obstetrics Rosaura Perez CNM [address] [place] [address] Pending Results Name Type Priority Associated Diagnoses Date /Time COMPR METAB PANEL Lab Routine NAFLD (nonalcoholic fatty liver disease) Cirrhosis of liver without ascites, unspecified hepatic cirrhosis type (HCC) 06/06/2019 1:03 PM EDT PT/INR Lab Routine NAFLD (nonalcoholic fatty liver disease) Cirrhosis of liver without ascites, unspecified hepatic cirrhosis type (HCC) 06/06/2019 1:03 PM EDT Scheduled Orders Name Type Priority Associated Diagnoses Orde r Schedule COMPR METAB PANEL Lab Routine NAFLD (nonalcoholic fatty liver disease) Cirrhosis of liver without ascites, unspecified hepatic cirrhosis type (HCC) Expected: 06/06/2019 (Approximate), Expires: 09/05/2019 PT/INR Lab Routine NAFLD (nonalcoholic fatty liver disease) Cirrhosis of liver without ascites, unspecified hepatic cirrhosis type (HCC) Expected: 06/06/2019 (Approximate), Expires: 09/05/2019 US ABDOMEN LIMITED Medical Imaging Routine NAFLD (nonalcoholic fatty liver disease) Cirrhosis of liver without ascites, unspecified hepatic cirrhosis type (HCC) Ordered: 06/06/2019 Health Maintenance Due Date Last Done Comments [...] Procedure Name Priority Date/Time Associated Diagnosis Comments CBC/DIFF Routine 06/06/2019 1:03 PM EDT NAFLD (nonalcoholic fatty liver disease) Cirrhosis of liver without ascites, unspecified hepatic cirrhosis type (HCC) documented in this encounter Results * CBC/DIFF (06/06/2019 1:03 PM EDT) WBC 2.78(L) 4.00 - 10.80 K/uL [facility] RBC 3.36(L) 3.85 - 5.15 M/uL [facility] HGB 10.5(L) 12.0 - 15.3 g/dL [facility] HCT 34.4(L) 36.0 - 45.2 % [facility] MCV 102.4(H) 81.5 - 97.5 fL [facility] MCH 31.3 27.0 - 34.0 pg [facility] MCHC 30.5(L) 32.0 - 36.0 g/dL [facility] RDW 16.9(H) 11.5 - 15.5 % [facility] PLATELET COUNT 74(L) 140 - 400 K/uL [facility] MPV 13.4(H) 6.6 - 11.1 fL [facility] NEUTS 55.7 40 - 75 % [facility] LYMPHS 24.8 18 - 42 % [facility] MONOS 11.2(H) 1 - 11 % [facility] EOS 7.6(H) 0 - 6 % [facility] BASOS 0.7 0 - 2 % [facility] ABS. NEUTS 1.55(L) 1.8 - 7.7 K/uL [facility] ABS. LYMPHS 0.69(L) 1.0 - 4.8 K/uL [facility] ABS. MONOS 0.31 0.0 - 1.1 K/uL [facility] ABS. EOS 0.21 0.0 - 0.7 K/uL [facility] ABS. BASOS 0.02 0.0 - 0.2 K/uL [facility] HYPOCHROMIA SLIGHT [facility] MACROCYTOSIS PRESENT [facility] OVALOCYTES FEW [facility] Specimen Performing Organization Address City/State/Zipcod e Phone Number [facility], [address] [facility] [address] documented in this encounter Visit Diagnoses Diagnosis NAFLD (nonalcoholic fatty liver disease)- Primary Other chronic nonalcoholic liver disease Cirrhosis of liver without ascites, unspecified hepatic cirrhosis type (HCC) IPMN (intraductal papillary mucinous neoplasm) Neoplasm of unspecified nature of digestive system documented in this encounter Advance Directives Documents on File Type Date Recorded Patient Staff Physical Therapy Assistant Expl anation Advanced Directive service a kerri default Advanced Directive Advanced Directive Advanced Directive Advanced Directive Advanced Directive Advanced Directive Advanced Directive
--- OUTSIDE RECORDS SUMMARY | 2023-05-10 23:06 | External Medical Summary | Summary of Care ---
Author Name Unknown Organization [facility] Address [place] [address] Care Team Providers Care Application Security Specialist Name Role Phone Rajwinder Carter Primary Care Provider [phone] Encounter Details Date Type Department Care Team Description 06/03/2019 Scan Encounter Unspecified Department <No scans attached> [...] pain 01/24/2012 01/17/2017 Genetic Sleep Disorder Research Other*[id number] 05/13/2011 04/07/2016 Obstructive sleep apnea 01/18/2011 12/27/19 [...] [facility] [place] [address] [phone] 06/18/2019 Office Visit Optometry Jarett Schmitt, OD 16 [facility] [place] [address] 07/03/2019 Office Visit Family Medicine [facility]winder Caretr DO [address] [facility] [address] 07/24/2019 Nutrition Services Gastroenterology Melissa Omalley, RDN [address] [place] [address] 12/31/2019 Office Visit Gynecology Obstetrics Rosaura Perez, CN 132 [facility] [place] [address] [phone] Health Maintenance Due Date Last Done Comments [...] on File Type Date Recorded Patient Industrial Designer Expl anation Advanced Directive service a kerri default Advanced Directive Advanced Directive Advanced Directive Advanced Directive Advanced Directive Advanced Directive Advanced Directive
--- OUTSIDE RECORDS SUMMARY | 2023-05-10 23:06 | External Medical Summary | Summary of Care ---
Author Name Unknown Organization [place] [address] Care Team Providers Care Power Transmission Engineer Name Role Phone Rajwinder Lara DO Primary Care Provider [phone] Reason for Visit * Reason Comments eRx-Medication Refill Encounter Details Date Type Department Care Team Description 06/05/2019 Refill [place] [address] [place] [address] Rajwinder Lara DO [address] [place] [address] [phone] Acquired hypothyroidism; Hypokalemia; Sleep disturbances Allergies Active Allergy Reactions Severity [...] in pm, 180 Cap 5 9 Active cyclobenzaprine (FLEXERIL) 10 MG [...] ONCE DAILY 30 Tab 4 9 Active escitalopram (LEXAPRO) 20 MG Tablet Take 1 Tab by mouth daily. 30 Tab 4 9 Active traZODone (DESYREL) 50 MG TabletIndications:S leep disturbances Take 1 Tab by mouth at bedtime. 30 Tab 5 9 Active levothyroxine (LEVOXYL) [...] pain 01/24/2012 01/17/2017 Genetic Sleep Disorder Research Other*[id number] 05/13/2011 04/07/2016 Obstructive sleep apnea 01/18/2011 12/27/19 [...] Miscellaneous Notes * Telephone Encounter - Rajwinder Lara, - 06/06/2019 11:59 AM EDT Signed Prescriptions: Disp Refills cyclobenzaprine (FLEXERIL) 10 MG Tablet 30 Tab 0 Sig: TAKE 1 TABLET BY MOUTH AT BEDTIME Authorizing Provider: RAJWINDER LARA levothyroxine (LEVOXYL) 150 MCG Tablet 30 Tab 10 Sig: TAKE 1 TABLET BY MOUTH ONCE DAILY at least 30 minutes prior to breakfast or other meds Authorizing Provider: RAJWINDER LARA potassium chl oride ER 10 MEQ TBCR 30 Tab 4 Sig: TAKE 1 TABLET ONCE DAILY WITH FOOD Authorizing Provider: RAJWINDER LARA ASPIRIN ADULT LOW STRENGTH 81 MG TBEC 30 Tab 4 Sig: TAKE 1 TABLET BY MOUTH ONCE DAILY Authorizing Provider: RAJWINDER LARA escitalopram (LEXAPRO) 20 MG Tablet 30 Tab 4 Sig: Take 1 Tab by mouth daily. Authorizing Provider: RAJWINDER LARA traZODone (DESY REL) 50 MG Tablet 30 Tab 5 Sig: Take 1 Tab by mouth at bedtime. Authorizing Provider: RAJWINDER LARA * Telephone Encounter - Lasha Mikki Daisha, [facility] - 06/06/2019 9:36 AM EDT Pending Prescriptions: Disp Refills cyclobenzaprine (FLEXERIL) 10 MG Tablet [*30 Tab 0 Sig: TAKE 1 TABLET BY MOUTH AT BEDTIME levothyroxine (LEVOXYL) 150 MCG Tablet [P*30 Tab 10 Sig: TAKE 1 TABLET BY MOUTH ONCE DAILY at least 30 minutes prior to breakfast or other meds potassium chloride ER 10 MEQ TBCR [Pharma*30 Tab 4 Sig: TAKE 1 TABLET ONCE DAILY WITH FOOD SM ASPIRIN ADULT LOW STRENGTH 81 MG TBEC *30 Tab 4 Sig: TAKE 1 TABLET BY MOUTH ONCE DAILY escitalopram (LEXAPRO) 20 MG Tablet 30 Tab 4 Sig: Take 1 Tab by mouth daily. traZODone (DESYREL) 50 MG Tablet 30 Tab 5 Sig: Take 1 Tab by mouth at bedtime. Last Office Visit: 06/05/2019 Next Office Visit: 07/03/2019 Scheduled Provider(s): Rajwinder Lara DO If no future appointments scheduled, and last appointment is greater than a year ago, please schedule patient for a follow-up appointment Last date the medication was ordered: 05/18/18 Pharmacy: [id number] [place] Is this request for a controlled substance?No [...] AM HGBA1C 6.5 (H) 04/05/2019 06:40 AM documented in this encounter Plan of Treatment Upcoming Encounters Date Type Specialty Care Team Description 06/06/2019 Office Visit Gastroenterology Lyssa Stout CRNP 132 [facility] [place] [address] [phone] 06/18/2019 Office Visit Optometry Jarett Schmitt, OD [address] [place] [address] 07/03/2019 Office Visit Family Medicine Rajwinder Lara, DO [address] [place] [address] 07/24/2019 Nutrition Services Gastroenterology Melissa Omalley, RDN [address] [place] [id number] 12/31/2019 Office Visit Gynecology Obstetrics Rosaura Perez, BOOM 132 [facility] [place] [address] [phone] Health Maintenance Due Date Last Done Comments [...] of this encounter Visit Diagnoses Diagnosis Acquired hypothyroidism Unspecified hypothyroidism Hypokalemia Hypopotassemia Sleep disturbances Sleep disturbance, unspecified documented in this encounter Advance Directives Documents on File Type Date Recorded Patient Salon Assistant Expl anation Advanced Directive service a kerri default Advanced Directive Advanced Directive Advanced Directive Advanced Directive Advanced Directive Advanced Directive Advanced Directive
--- OUTSIDE RECORDS SUMMARY | 2023-05-10 23:06 | External Medical Summary ---
Author Name Unknown Address 132 [facility] [place] [address] Phone Organization K0G:[facility] [employer] 132 [facility] [place] [address] Laboratory Report Ordering Provider Test Date Status DESMOND GUSMANShae CRESPO 06/06/2019 13:03:00 Final Observation Date Value Abnormality Reference Status PT 06/06/2019 14:21 14.1 11.5-14.6 Chago siddiqui INR 06/06/2019 14:21 1.09 0.84-1.14 Chago siddiqui Performing Location [facility] [address] [facility] [place] [address]
--- OUTSIDE RECORDS SUMMARY | 2023-05-10 23:06 | External Medical Summary ---
Author Name Unknown Address 132 [place] [address] Phone Organization K[facility] 132 [facility] [place] [address] Laboratory Report Ordering Provider Test Date Status ODESSA GUSMAN [employer] 06/06/2019 13:03:00 Final Observation Date Value Abnormality [...] Smear 06/06/2019 13:50 FEW Final Performing Location [facility] 132 [facility] [address]
--- OUTSIDE RECORDS SUMMARY | 2023-05-10 23:07 | External Medical Summary | Summary of Care ---
Author Name Unknown Organization [facility] Address [place] [address] Care Team Providers Care Cuff Cutter Name Role Phone Rajwinder Carter DO Primary Care Provider [phone] Reason for Referral * Evaluate & Treat - Unlimited Visits (Within 30 days (routine)) Status Reason Specialty Diagnoses / Procedures Referred By Contact Referred To Contact Pending Review Ancillary Services Required Assistant Offset Press Operator Diagnoses Ambulatory dysfunction Wheelchair dependent Generalized weakness Rajwinder Carter DO [address] [place] [address] Reason for Visit * Reason Comments Advice Encounter Details Date Type Department Care Team Description 05/17/2019 Telephone [facility] [address] [place] [address] Rajwinder Carter DO [address] [place] [address] Advice Allergies Active Allergy Reactions Severity Noted Date Comments Penicillins Rash 02/12/2008 documented as of this encounter (statuses as of 05/20/2019) Medications Medication Sig Dispensed Refills Start Date [...] as of this encounter (statuses as of 05/20/2019) Active Problems Problem Noted Date Thrombocytopenia 05/02/2019 [...] as of this encounter (statuses as of 05/20/2019) Resolved Problems Problem Noted Date Resolved Date [...] pain 01/24/2012 01/17/2017 Genetic Sleep Disorder Research Other*[id number] 05/13/2011 04/07/2016 Obstructive sleep apnea 01/18/2011 12/27/19 [...] as of this encounter (statuses as of 05/20/2019) Immunizations Name Administration Dates Next Due HEP [...] Telephone Encounter - Rosio Hunter RN - 05/20/2019 12:54 PM EDT Spoke to Irma at [facility] and advised that order for home health director social would be placed. [facility] at [phone] * Telephone Encounter - Carlos Germain LPN - 05/17/2019 2:27 PM EDT Irma is calling to ask if PCP would be okay if she wrote an order for a director social. States that the pt would like to go to inpatient rehab and feels like a director social would be ableto help the pt. Irma is requesting a return call at [phone] Please advise if agreeable to request. * Telephone Encounter - Emmy Palumbo OSA - 05/17/2019 2:26 PM EDT Reason for patient's call: Irma from [facility] Caller was transferred to Carlos at the nurse line. documented in this encounter Plan of Treatment Upcoming Encounters Date Type Specialty Care Team Description 05/22/2019 Nutrition Services Gastroenterology Melissa Omalley, SAMANTHA [address] [place] [address] [phone] 06/18/2019 Office Visit Optometry Jarett Schmitt, OD [address] [place] [address] 07/03/2019 Office Visit Family Medicine Rajwinder Carter DO [address] [place] [address] [phone] 12/31/2019 Office Visit Gynecology Obstetrics Rosaura Perez, CNM 132 [facility] [place] [address] [phone] Scheduled Referrals Name Type Priority Associated Diagnoses Orde r Schedule SOCIAL SERVICE REFERRAL OP Referral Within 30 days (routine) Ambulatory dysfunction Wheelchair dependent Generalized weakness Ordered: 05/20/2019 Health Maintenance Due Date Last Done Comments [...] Vaccines (3 - Td) 05/01/2027 05/01/2017, 05/26/2008 PNEUMOCOCCAL 19-64 MEDIUM RISK Completed 06/01/2010 *DEPRESSION SCREENING,ANNUAL FOR PTS 12 AND OVER Completed 12/09/2015, 10/20/2014 MENINGOCOCCAL (MENACTRA) Aged Out No longer eligible based on patient's age to complete this topic documented as of this encounter Implants Not on filedocumented as of this encounter Visit Diagnoses Diagnosis Ambulatory dysfunction- Primary Wheelchair dependent Wheelchair dependence Generalized weakness Other malaise and fatigue documented in this encounter Advance Directives Documents on File Type Date Recorded Patient Pricing Actuary Expl anation Advanced Directive service a kerri default Advanced Directive Advanced Directive Advanced Directive Advanced Directive Advanced Directive Advanced Directive Advanced Directive
--- OUTSIDE RECORDS SUMMARY | 2023-05-10 23:07 | External Medical Summary | Summary of Care ---
Author Name Unknown Organization [facility] Address [facility] [place] [address] Care Team Providers Care Physician Scribe Name Role Phone Rajwinder Carter DO Primary Care Provider [phone] Reason for Referral * Evaluate & Treat - Unlimited Visits (Within 10 days (routine)) Status Reason Specialty Diagnoses / Procedures Referred By Contact Referred To Contact Pending Review Specialty Services Required Occupational Medicine Diagnoses Cerebral palsy, unspecified type (HCC) Rajwinder Carter DO [address] [place] [address] * Evaluate & Treat - Unlimited Visits (Within 10 days (routine)) Status Reason Specialty Diagnoses / Procedures Referred By Contact Referred To Contact Pending Review Specialty Services Required Physical Therapy Diagnoses Cerebral palsy, unspecified type (HCC) Rajwinder Carter DO [address] [place] [address] Reason for Visit * Reason Comments Order Request Encounter Details Date Type Department Care Team Description 05/27/2019 Telephone [facility] [address] [place] [address] Rajwinder Carter DO [address], [place] [id number] Order Request Allergies Active Allergy Reactions Severity Noted Date Comments Penicillins Rash 02/12/2008 documented as of this encounter (statuses as of 05/29/2019) Medications Medication Sig Dispensed Refills Start Date [...] as of this encounter (statuses as of 05/29/2019) Active Problems Problem Noted Date Thrombocytopenia 05/02/2019 [...] as of this encounter (statuses as of 05/29/2019) Resolved Problems Problem Noted Date Resolved Date [...] pain 01/24/2012 01/17/2017 Genetic Sleep Disorder Research Other*[id number] 05/13/2011 04/07/2016 Obstructive sleep apnea 01/18/2011 12/27/19 [...] as of this encounter (statuses as of 05/29/2019) Immunizations Name Administration Dates Next Due HEP [...] Telephone Encounter - Susan Rosales RN - 05/29/2019 10:32 AM EDT PT and OT orders faxed to [facility] * Telephone Encounter - Rajwinder Carter DO - 05/29/2019 7:14 AM EDT Referrals placed. Please let [facility] know and fax. * Telephone Encounter - Cecil Russo OSA - 05/27/2019 4:18 PM EDT Patient calling in to check on the status of previous message. [facility] is inquiring about the mobility request for patient. * Telephone Encounter - Susan Rosales RN - 05/27/2019 1:11 PM EDT Called Jesenia at [facility] she was contacted by Home care they are discharging patient and feel she needs in patient PT and OT Need referral to go out and eval for in patient therapy * Telephone Encounter - Daniella Vela OSA - 05/27/2019 10:28 AM EDT An order was requested for this patient. [facility] and Occupational Therapy as In patient Diagnosis/Reason for Request: Cerebral Palsy Does the order need to be faxed somewhere? If so, where?: [facility] Fax Number, if applicable: [phone] Call Back Number: [phone] documented in this encounter Plan of Treatment Upcoming Encounters Date Type Specialty Care Team Description 06/06/2019 Office Visit [facility]ology [facility]out CR[facility] [place] [address] [phone] 06/18/2019 Office Visit Optometry Jarett Schmitt, OD [address] [place] [address] 07/03/2019 Office Visit Family Medicine Rajwinder Carter, DO [address] [place] [address] [phone] 07/24/2019 Nutrition Services Gastroenterology Melissa Omalley, SAMANTHA [address] [place] [address] [phone] 12/31/2019 Office Visit Gynecology Obstetrics Rosaura Perez, CNBelen [address] [facility] [place] [address] Scheduled Referrals Name Type Priority Associated Diagnoses Orde r Schedule PHYSICAL THERAPY REFERRAL OP Referral Within 10 days (routine) Cerebral palsy, unspecified type (HCC) Ordered: 05/29/2019 OCCUPATIONAL THERAPY REFERRAL OP Referral Within 10 days (routine) Cerebral palsy, unspecified type (HCC) Ordered: 05/29/2019 Health Maintenance Due Date Last Done Comments [...] Documents on File Type Date Recorded Patient Analytics Consultant Expl anation Advanced Directive service a kerri default Advanced Directive Advanced Directive Advanced Directive Advanced Directive Advanced Directive Advanced Directive Advanced Directive
--- OUTSIDE RECORDS SUMMARY | 2023-05-10 23:07 | External Medical Summary | Summary of Care ---
Author Name Unknown Organization [facility] [place] [address] Care Team Providers Care Digital Media Producer Name Role Phone Rajwinder Carter DO Primary Care Provider [phone] Reason for Visit * Reason Comments eRx-Medication Refill Encounter Details Date Type Department Care Team Description 05/07/2019 Refill Pharmacy, [address] [address] Rajwinder Carter DO [address] [place] [address] [phone] Type 2 diabetes mellitus with hemoglobin A1c goal of less than 7.0% (HCC) Allergies Active Allergy Reactions Severity Noted Date Comments Penicillins Rash 02/12/2008 documented as of this encounter (statuses as of 05/07/2019) Medications Medication Sig Dispensed Refills Start Date [...] as of this encounter (statuses as of 05/07/2019) Active Problems Problem Noted Date Thrombocytopenia 05/02/2019 [...] as of this encounter (statuses as of 05/07/2019) Resolved Problems Problem Noted Date Resolved Date [...] pain 01/24/2012 01/17/2017 Genetic Sleep Disorder Research Other*[id number] 05/13/2011 04/07/2016 Obstructive sleep apnea 01/18/2011 12/27/19 [...] as of this encounter (statuses as of 05/07/2019) Immunizations Name Administration Dates Next Due HEP [...] Telephone Encounter - Jovana Lambert RN - 05/07/2019 4:43 PM EDT Refused Prescriptions: Disp Refills Dulaglutide (TRULICITY) 1.5 MG/0.5ML SOPN 2 mL 4 Sig: inject the contents of 1 syringe once weeklyRefused By: INDIA LAMBERTeason for Refusal: Duplicate Request--- * Telephone Encounter - Jovana Lambert RN - 05/07/2019 4:42 PM EDT Pending Prescriptions: Disp Refills Dulaglutide (TRULICITY) 1.5 MG/0.5ML SOPN*2 mL 4 Sig: inject the contents of 1 syringe once weekly Last Office Visit: No Previous Office Visits Next Office Visit: No Future Appointments If no future appointments scheduled, and last appointment is greater than a year ago, please schedule patient for a follow-up appointment Last date the medication was ordered: Pharmacy: [facility] # [id number] Is this request for a [...] AM HGBA1C 6.5 (H) 04/05/2019 06:40 AM Pending Prescriptions: Disp Refills Dulaglutide (TRULICITY) 1.5 MG/0.5ML SOPN*2 mL 4 Sig: inject the contents of 1 syringe once weekly Last Office Visit: No Previous Office Visits Next Office Visit: No Future Appointments If no future appointments scheduled, and last appointment is greater than a year ago, please schedule patient for a follow-up appointment Last date the medication was ordered: 05/06/19 Pharmacy: [facility] [id number] [facility] Is this request for a controlled [...] 04/05/2019 06:40 AM * Telephone Encounter - Shelli Osorio [facility] - 05/07/2019 3:57 PM EDT Pending Prescriptions: Disp Refills TRULICITY 1.5 MG/0.5ML SOPN [Pharmacy Med *2 mL 4 Sig: inject the contents of 1 syringe once weekly documented in this encounter Plan of Treatment Upcoming Encounters Date Type Specialty Care Team Description 05/14/2019 Nutrition Services Gastroenterology Melissa Omalley RDN [address] [place] [address] 06/18/2019 Office Visit Optometry Oskar Jaretttiffany Fritz, OD [address] [place] [address] 07/03/2019 Office Visit Family Medicine Rajwinder Carter, DO [address] [place] [address] [phone] 12/31/2019 Office Visit Gynecology Obstetrics Rosaura Perez, CNM [address] [facility] [address] [phone] Health Maintenance Due Date Last Done Comments [...] Documents on File Type Date Recorded Patient Infectious Disease Technician Expl anation Advanced Directive service a kerri default Advanced Directive Advanced Directive Advanced Directive Advanced Directive Advanced Directive Advanced Directive Advanced Directive
--- OUTSIDE RECORDS SUMMARY | 2023-05-10 23:07 | External Medical Summary | Summary of Care ---
Author Name Unknown Organization [facility] Address [place] [address] Care Team Providers Care Manager Mail Name Role Phone Rajwinder Carter Primary Care Provider [phone] Encounter Details Date Type Department Care Team Description 2019 Scan Encounter Unspecified Department <No scans attached> Allergies Active Allergy Reactions Severity Noted Date Comments Penicillins Rash 02/12/2008 documented as of this encounter (statuses as of 05/09/2019) Medications Medication Sig Dispensed Refills Start Date [...] as of this encounter (statuses as of 05/09/2019) Active Problems Problem Noted Date Thrombocytopenia 05/02/2019 [...] as of this encounter (statuses as of 05/09/2019) Resolved Problems Problem Noted Date Resolved Date [...] pain 01/24/2012 01/17/2017 Genetic Sleep Disorder Research Other*[id number] 05/13/2011 04/07/2016 Obstructive sleep apnea 01/18/2011 12/27/19 [...] as of this encounter (statuses as of 05/09/2019) Immunizations Name Administration Dates Next Due HEP [...] [address] [place] [address] [phone] 06/18/2019 Office Visit Optometry Jarett Schmitt, OD [address] [place] [address] 07/03/2019 Office Visit Family Medicine [facility]winder Carter DO [address] [facility] [address] 12/31/2019 Office Visit Gynecology Obstetrics Rosaura Perez, CNM [address] [place] [address] [phone] Health Maintenance Due Date Last Done Comments [...] on File Type Date Recorded Patient Assistant At Surgery Expl anation Advanced Directive service a kerri default Advanced Directive Advanced Directive Advanced Directive Advanced Directive Advanced Directive Advanced Directive Advanced Directive
--- OUTSIDE RECORDS SUMMARY | 2023-05-10 23:07 | External Medical Summary | Summary of Care ---
Author Name Unknown Organization [facility] Address [place] [address] Care Team Providers Care Cable Testers Helper Name Role Phone Rajwinder Carter DO Primary Care Provider [phone] Reason for Visit * Reason Comments Forms Request Encounter Details Date Type Department Care Team Description 05/14/2019 Telephone [facility] [address] [place] [address] Rajwinder Carter DO [address] [place], [place] [id number] Forms Request Allergies Active Allergy Reactions Severity Noted Date Comments Penicillins Rash 02/12/2008 documented as of this encounter (statuses as of 05/15/2019) Medications Medication Sig Dispensed Refills Start Date [...] as of this encounter (statuses as of 05/15/2019) Active Problems Problem Noted Date Thrombocytopenia 05/02/2019 [...] as of this encounter (statuses as of 05/15/2019) Resolved Problems Problem Noted Date Resolved Date [...] pain 01/24/2012 01/17/2017 Genetic Sleep Disorder Research Other*[id number] 05/13/2011 04/07/2016 Obstructive sleep apnea 01/18/2011 12/27/19 [...] as of this encounter (statuses as of 05/15/2019) Immunizations Name Administration Dates Next Due HEP [...] Telephone Encounter - Jovana Lambert RN - 05/15/2019 8:53 AM EDT Written RX faxed To [facility] [phone] Form fimsed to chart * Telephone Encounter - Jovana Lambert RN - 05/14/2019 1:54 PM EDT Form from [facility]aiver [facility] Asking for a Prescription for 40 hours Sterile Processing Tech Fax To [facility] at [phone] Letter on your desk documented in this encounter Plan of Treatment Upcoming Encounters Date Type Specialty Care Team Description 05/22/2019 Nutrition Services Gastroenterology Melissa Omalley, RDN [address] [place] [id number] 06/18/2019 Office Visit Optometry Jarett Schmitt, OD [address] [place] [address] 07/03/2019 Office Visit Family Medicine Rajwinder Carter, DO [address] [place] [address] [phone] 12/31/2019 Office Visit Gynecology Obstetrics Rosaura Perez, CN 132 [facility] [address] [phone] Health Maintenance Due Date Last Done Comments [...] Documents on File Type Date Recorded Patient Shuttle Threader Expl anation Advanced Directive service a kerri default Advanced Directive Advanced Directive Advanced Directive Advanced Directive Advanced Directive Advanced Directive Advanced Directive
--- OUTSIDE RECORDS SUMMARY | 2023-05-10 23:07 | External Medical Summary | Summary of Care ---
Author Name Unknown Organization [facility] Address [place] [address] Care Team Providers Care Foundry Supervisor Name Role Phone Rajwinder Carter DO Primary Care Provider [phone] Reason for Visit * Reason Comments Order Request Encounter Details Date Type Department Care Team Description 05/23/2019 Telephone [facility] [address] [place] [address] Rajwinder Carter DO [address] [place], [place] [id number] Order Request Allergies Active Allergy Reactions Severity [...] UTI 10/11/2017 02/13/2018 Preoperative cardiovascular examination 10/11/19 02/13/2018 Debility 07/19/2017 02/13/2018 Body mass index [...] pain 01/24/2012 01/17/2017 Genetic Sleep Disorder Research Other*[id number] 05/13/2011 04/07/2016 Obstructive sleep apnea 01/18/2011 12/27/19 [...] Encounter - Rajwinder Carter DO - 05/29/2019 7:15 AM EDT See other encounter. It seems pt is attempting to go back to inpatient treatment? I placed PT and OT orders. * Telephone Encounter - Michaelle Lindquist LPN - 05/24/2019 2:[address] Carter are you willing to do this or should it wait for Dr. Jordan since he saw pt last. * Telephone Encounter - Shelly Hirsch LPN - 05/23/2019 3:41 PM EDT Marie calling from [facility]. On May 02. Dr. Jordan saw the patient. there was a DME evaluation sent to [facility]. They can't use this. Asking or a PT order to evaluate and treat for power mobility evaluation. 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 documented in this encounter Plan of Treatment Upcoming Encounters Date Type Specialty Care Team Description 06/06/2019 Office Visit Gastroenterology Lyssa Stout CRNP 132 [facility] [place] [address] [phone] 06/18/2019 Office Visit Optometry Jarett Schmitt, OD [address] [place] [address] [phone] 07/03/2019 Office Visit Family Medicine Rajwinder Carter DO [address] [place] [address] [phone] 07/24/2019 Nutrition Services Gastroenterology Melissa Omalley, RDN [address] [place] [address] 12/31/2019 Office Visit Gynecology Obstetrics Rosaura Perez, CNM [address] [place] [address] [phone] Health Maintenance Due Date Last Done Comments [...] Documents on File Type Date Recorded Patient Volumetric Weigher Expl anation Advanced Directive service a kerri default Advanced Directive Advanced Directive Advanced Directive Advanced Directive Advanced Directive Advanced Directive Advanced Directive
--- OUTSIDE RECORDS SUMMARY | 2023-05-10 23:07 | External Medical Summary | Summary of Care ---
Author Name Unknown Organization [place] [address] Care Team Providers Care Building Maintenance Custodian Name Role Phone JohnbrianRajwinder thacker Primary Care Provider [phone] Reason for Visit * Reason Comments Weight Management 3 month return Encounter Details Date Type Department Care Team Description 05/22/2019 Nutrition Services Nutrition & Weight Management, [facility] 132 [facility] [place] [address] Melissa Omalley RDN [address] [place] [address] [phone] Obesity, morbid (more than 100 lbs over ideal weight or BMI > 40) ([facility])*; Type 2 diabetes mellitus with hemoglobin A1c goal of less than 7.0% ([facility]); HTN, goal below 140/90; Lymphedema; Dyslipidemia, goal LDL below 70; Acquired hypothyroidism Allergies Active Allergy Reactions Severity Noted Date Comments Penicillins Rash 02/12/2008 documented as of this encounter (statuses as of 05/22/2019) Medications Medication Sig Dispensed Refills Start Date [...] as of this encounter (statuses as of 05/22/2019) Active Problems Problem Noted Date Thrombocytopenia 05/02/2019 [...] as of this encounter (statuses as of 05/22/2019) Resolved Problems Problem Noted Date Resolved Date [...] pain 01/24/2012 01/17/2017 Genetic Sleep Disorder Research Other*[id number] 05/13/2011 04/07/2016 Obstructive sleep apnea 01/18/2011 12/27/19 [...] as of this encounter (statuses as of 05/22/2019) Immunizations Name Administration Dates Next Due HEP [...] Reading Time Taken Comments Blood Pressure 122/60 05/22/2019 12:29 PM EDT Pulse 80 05/22/2019 12:29 PM EDT Temperature 37.1 C (98.7 F) 05/22/2019 12:29 PM E DT Respiratory Rate - - Oxygen Saturation - - Inhaled Oxygen Concentration - - Weight 120.7 kg (266 lb) 05/22/2019 12:29 PM EDT Height 149.9 cm (4' 11") 05/22/2019 12:29 PM EDT Body Mass Index 53.73 05/22/2019 12:29 PM EDT documented in this encounter Patient Instructions * Patient Instructions* Melissa Omalley RDN - 05/22/2019 12:53 PM EDT PATIENT GOALS: 1) Patient to follow a portion/calorie controlled diet with focus on choosing: leaner proteins, more fruits and low calorie vegetables, limiting higher carbohydrate sources such as potatoes, pasta, refined carbohdyrates, simple sugars etc. 2) Patient to add a low calorie vegetable and fruit serving daily. 3) Patient to decrease servings of starches of pasta, potatoes or rice as supper meal . Patient to add a low calorie vegetable to meal to aid with cutting down on calories. 4) Patient to drink more water with goal of 48-64 ounces day. 5) Patient to continue to zone in on following a Low Sodium Diet. 6) Patient to start chair exercises daily as tolerated. documented in this encounter Progress Notes * Melissa Omalley RDN - 05/22/2019 12:30 PM EDT GI/NUTRITION CONSULT [facility] [place] Patient was identified at visit by name and date. PATIENT: Shaina Bustos DATE: 05/22/19 NUTRITION ASSESSMENT Diagnosis Code for referral for nutrition counseling: Obesity, morbid (more than 100 lbs over ideal weight or BMI > 40) ([facility]) [E66.01] - Primary Type 2 diabetes mellitus with hemoglobin A1c goal of less than 7.0% (HCC) [E11.9] HTN, goal below 140/90 [I10] Cirrhosis of liver (HCC) [K74.60] Lymphedema [I89.0] Dyslipidemia, goal LDL below 70 [E78.5] Acquired hypothyroidism [E03.9] SUBJECTIVE: Patient here today for return visit nutrition counseling for weight management. Describes typical diet history/24 hr recall Breakfast: Oatmeal or eggs and a piece of toast Lunch: About 1-1:30 pm Wink or a frozen rice meal Snacks: Sugar free ice cream frozen strawberries or larry crackers with or without butter Dinner: Steak, corn and a baked potato. Snacks: Applesauce Drinks: About 32 ounces a day about 24 ounces from milk. 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 LAST VISIT WT: 02/06/19 260 lbs Weight History: 260 lbs 12/24/18 254 lbs 09/24/18 245.6 lbs 07/16/18 259.9 lbs 04/23/18 WEIGHT CHANGES: Weight increased 6 lbs the same since last visit. MNT: [...] NUTRITION COUNSELING: No prior counseling DAILY ENERGY/NUTRIENT NEEDS:[id number] KCALS for wt loss DIET RECALL INDICATES: Patient really hasn't made much change in diet since last review. Inadequate fruit and vegetable intake Inadequate fluid intake KNOWLEDGE ASSESSMENT: adequate knowledge NUTRITION DIAGNOSIS Food [...] potatoes, pasta, refined carbohdyrates, simple sugars etc. 2) Patient to add a low calorie vegetable and fruit serving daily. 3) Patient to decrease servings of starches of pasta, potatoes or rice as supper meal . Patient to add a low calorie vegetable to meal to aid with cutting down on calories. 4) Patient to drink more water with goal of 48-64 ounces day. 5) Patient to continue to zone in on following a Low Sodium Diet. 6) Patient to start chair exercises daily as tolerated. EXPECTED OUTCOMES: Demonstrated interest in learning. Expect compliance with diet recommendations. PLAN: Patient scheduled to return in 2 months ; dietitian phone # given for future reference. 30 minutes return visit Melissa Omalley RDN documented in this encounter Nursing Notes * Sabine Valencai LPN - 05/22/2019 12:31 PM EDT Patient identified by name and date of . Chief Complaint Patient presents with Weight Management 3 month return documented in this encounter Plan of Treatment Upcoming Encounters Date Type Specialty Care Team Description 06/06/2019 Office Visit Gastroenterology Lyssa Stout CRNP [address] [place] [address] [phone] 06/18/2019 Office Visit Optometry Jarett Schmitt, OD [address] [place] [address] [phone] 07/03/2019 Office Visit Family Medicine Rajwinder Carter DO [address] [place] [address] [phone] 07/24/2019 Nutrition Services Gastroenterology Melissa Omalley, RDN [address] [place] [address] [phone] 12/31/2019 Office Visit Gynecology Obstetrics Rosaura Perez, CNM [facility] [place] [address] [phone] Scheduled Orders Name Type Priority Associated Diagnoses Orde r Schedule MED NUTRITION TX; SUBSEQ 15 MIN (PROVIDER) Procedures Routine Obesity, morbid (more than 100 lbs over ideal weight or BMI > 40) (HCC) Type 2 diabetes mellitus with hemoglobin A1c goal of less than 7.0% (HCC) HTN, goal below 140/90 Lymphedema Dyslipidemia, goal LDL below 70 Acquired hypothyroidism Ordered: 05/22/2019 Health Maintenance Due Date Last Done Comments [...] weight or BMI > 40) ([facility])- Primary Morbid obesity Type 2 diabetes mellitus with hemoglobin A1c goal of less than 7.0% ([facility]) HTN, goal below 140/90 Unspecified essential hypertension Lymphedema Other lymphedema Dyslipidemia, goal LDL below 70 Other and unspecified hyperlipidemia Acquired hypothyroidism Unspecified hypothyroidism documented in this encounter Advance Directives Documents on File Type Date Recorded 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
--- OUTSIDE RECORDS SUMMARY | 2023-05-10 23:07 | External Medical Summary | Summary of Care ---
Author Name Unknown Organization [facility] Address [place] [address] Care Team Providers Care Supervisor Audit Clerks Name Role Phone Rajwinder Carter DO Primary Care Provider [phone] Reason for Visit * Reason Comments Advice Encounter Details Date Type Department Care Team Description 05/07/[address] [facility] [address] [place] [address] Rajwinder Carter DO [address] [place], [place] [id number] Advice Allergies Active Allergy Reactions Severity Noted [...] pain 01/24/2012 01/17/2017 Genetic Sleep Disorder Research Other*[id number] 05/13/2011 04/07/2016 Obstructive sleep apnea 01/18/2011 12/27/19 [...] Telephone Encounter - Michaelle Lindquist LPN - 05/07/2019 3:08 PM EDT Spoke with pt she states she is going to call the insurance company and get more information. Possibility it may of been for a powered w/c * Telephone Encounter - Dominique Franco OSA - 05/07/2019 1:04 PM EDT Patient called. She received a call from [employer] that stated she was approved, but she has no idea what she is approved for. Please call the patient if you have any additional information, or need to assist her in other ways. Thank you. documented in this encounter Plan of Treatment Upcoming Encounters Date Type Specialty Care Team Description 05/22/2019 Nutrition Services Gastroenterology Melissa Omalley, SAMANTHA [address] [place] [address] [phone] 06/18/2019 Office Visit Optometry Jarett Schmitt, OD [address] [place] [address] 07/03/2019 Office Visit Family Medicine Rajwinder Carter, DO [address] [place] [address] 12/31/2019 Office Visit Gynecology Obstetrics Rosaura Perez, CNM [address] [place] [address] [phone] Health Maintenance Due Date Last Done Comments [...] on File Type Date Recorded 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
--- OUTSIDE RECORDS SUMMARY | 2023-05-10 23:07 | External Medical Summary | Summary of Care ---
Author Name Unknown Organization [facility] Address [place] [address] Care Team Providers Care Fitting Room Operator Name Role Phone Rajwinder Carter DO Primary Care Provider [phone] Reason for Visit * Reason Comments Advice Encounter Details Date Type Department Care Team Description 05/31/2019 Telephone [facility] [address] [place] [address] Rajwinder Carter DO [address] [place], [place] [id number] Advice Allergies Active Allergy Reactions Severity Noted [...] pain 01/24/2012 01/17/2017 Genetic Sleep Disorder Research Other*[id number] 05/13/2011 04/07/2016 Obstructive sleep apnea 01/18/2011 12/27/19 [...] call: returning call. Caller was transferred to [facility] at the nurse line. * Telephone Encounter - Rajwinder Carter DO - 06/02/2019 10:22 AM EDT It seems that pt's next step is SNF placement. I believe that she has a case mgr through her insurance. That would be her next step to reach out to her to arrange placement. * Telephone Encounter - Giovana Lorenzo, THAD - 05/31/2019 4:04 PM EDT Jesenia from [facility] stating that patient was denied by her insurance for inpatient rehab through them. Jesenia asking if fci placement would be an optionfor the patient. Jesenia states that the patient will need assistance and that she is frustrated at home. Jesenia was just calling to let Dr. Carter know and see what next steps would be for patient. * Telephone Encounter - [place] Germain LPN - 05/31/2019 3:51 PM EDT Pt states that she received a call from [facility] stating that she was denied by insurance [...] the last time. Caller was transferred to [facility] at the nurse line. documented in this encounter Plan of Treatment Upcoming Encounters Date Type Specialty Care Team Description 06/06/2019 Office Visit Gastroenterology Lyssa Stout CRNP [address] [facility] [place] [address] [phone] 06/18/2019 Office Visit Optometry Jarett Schmitt, OD [address] [place] [address] 07/03/2019 Office Visit Family Medicine Rajwinder Carter, DO [address] [place], [place] [id number] 07/24/2019 Nutrition Services Gastroenterology Melissa Omalley, RDN [address] [place] [address] 12/31/2019 Office Visit Gynecology Obstetrics Rosaura Perez CNM 132 [facility] [place] [address] [phone] Health Maintenance Due Date Last Done Comments [...] Documents on File Type Date Recorded Patient Paster Hat Lining Expl anation Advanced Directive service a kerri default Advanced Directive Advanced Directive Advanced Directive Advanced Directive Advanced Directive Advanced Directive Advanced Directive
--- OUTSIDE RECORDS SUMMARY | 2023-05-10 23:07 | External Medical Summary | Summary of Care ---
Author Name Unknown Organization [facility] Address [place] [address] Care Team Providers Care Operations Controller Name Role Phone Rajwinder Carter DO Primary Care Provider [phone] Reason for Referral * Evaluate & Treat - Unlimited Visits (Within 30 days (routine)) Status Reason Specialty Diagnoses / Procedures Referred By Contact Referred To Contact Pending Review Ancillary Services Required Fruit Harvester Diagnoses Ambulatory dysfunction Wheelchair dependent Generalized weakness Rajwinder Carter DO [address] [place] [address] Reason for Visit * Reason Comments Advice Encounter Details Date Type Department Care Team Description 05/17/2019 Telephone [facility] [address] [place] [address] Rajwinder Carter DO [address] [place] [address] Advice Allergies Active Allergy Reactions [...] pain 01/24/2012 01/17/2017 Genetic Sleep Disorder Research Other*[id number] 05/13/2011 04/07/2016 Obstructive sleep apnea 01/18/2011 12/27/19 [...] 12:54 PM EDT Spoke to Irma at [facility] and advised that order for home health clinical social work aide would be placed. Order faxed to [facility] at [phone] * Telephone Encounter - Carlos Germain LPN - 05/17/2019 2:27 PM EDT Irma is calling to ask if PCP would be okay if she wrote an order for a clinical social work aide. States that the pt would like to go to inpatient rehab and feels like a clinical social work aide would be ableto help the pt. Irma is requesting a return call at [phone] Please advise if agreeable to request. * Telephone Encounter - Emmy Palumbo OSA - 05/17/2019 2:26 PM EDT Reason for patient's call: Irma from [facility] Caller was transferred to Carlos at the nurse line. documented in this encounter Plan of Treatment Upcoming Encounters Date Type Specialty Care Team Description 05/22/2019 Nutrition Services Gastroenterology Melissa Omalley, SAMANTHA [address] [place] [address] [phone] 06/18/2019 Office Visit Optometry Jarett Schmitt, OD [address] [place] [address] 07/03/2019 Office Visit Family Medicine Rajwinder Carter DO [address] [place] [address] [phone] 12/31/2019 Office Visit Gynecology Obstetrics Rosaura Perez, CNM 132 [facility] [place] [address] [phone] Scheduled Referrals Name Type Priority Associated Diagnoses [...] Documents on File Type Date Recorded 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
--- OUTSIDE RECORDS SUMMARY | 2023-05-10 23:08 | External Medical Summary | Summary of Care ---
Author Name Unknown Organization [facility] Address [place] [address] Care Team Providers Care Weigher Production Name Role Phone Rajwinder Carter Primary Care Provider [phone] Encounter Details Date Type Department Care Team Description 04/21/2019 Scan Encounter Unspecified Department <No scans attached> Allergies Active Allergy Reactions Severity Noted Date Comments Penicillins Rash 02/12/2008 documented as of this encounter (statuses as of 04/23/2019) Medications Medication Sig Dispensed Refills Start Date [...] once dailly. 60 Tab 5 05/18/2018 Active gabapentin (NEURONTIN) 300 MG Capsule One pill in am, one midday, two in pm, 180 Cap 5 05/18/2018 Active oxybutynin (DITROPAN) 5 MG Tablet Take 1 Tab by mouth 2 times a day. Through urology 60 Tab 5 05/29/2018 Active cyclobenzaprine (FLEXERIL) 10 MG Tablet TAKE 1 TABLET BY MOUTH AT BEDTIME 30 Tab 0 08/03/2018 Active Dulaglutide (TRULICITY) 1.5 MG/0.5ML SOPNIndications:Type 2 diabetes mellitus with hemoglobin A1c goal of less than 7.0% ([facility]) Inject 1 syringeful once weekly 4 Pre-filled Pen Syringe Dosing Unit 5 09/21/2018 Active Aspirin 81 MG Tablet Take 1 [...] mouth daily. Every other day 0 Active documented as of this encounter (statuses as of 04/23/2019) Active Problems Problem Noted Date Gastroesophageal reflux disease 04/08/20 19 History of kidney stones 04/08/2019 History of Achilles tendon repair 2018 History of delivery 04/08/2019 History of MRSA infection 04/08/2019 History of migraine 04/08/2019 Anemia 04/08/2019 Fibromyalgia 04/08/2019 Achilles tendinitis, right leg 9 [facility] resident 04/08/2019 DNR (do not resuscitate) 04/08/2019 Ambulatory dysfunction [...] as of this encounter (statuses as of 04/23/2019) Resolved Problems Problem Noted Date Resolved Date Chronic hypoxemic respiratory failure 04/08/2019 04/18/2019 Oxygen dependent 04/08/2019 04/18/2019 Preop examination 02/21/2019 04/04/2019 Bladder tumor 10/11/2017 [...] pain 01/24/2012 01/17/2017 Genetic Sleep Disorder Research Other*[id number] 05/13/2011 04/07/2016 Obstructive sleep apnea 01/18/2011 12/27/19 [...] as of this encounter (statuses as of 04/23/2019) Immunizations Name Administration Dates Next Due HEP A - Hepatitis A (Adult > 18 yrs) 09/24/2018, 03/26/2018 Hepatitis B, 20+ yrs 09/24/2018,04/23/2018,03/26 Pneumococcal Polysaccharide PPV23 (Pneumovax) 06/01/2010 Seasonal Influenza, [...] Encounters Date Type Specialty Care Team Description 04/24/2019 Office Visit Family Medicine [facility]der Crater DO [address] [facility] [address] 05/14/2019 Nutrition Services Gastroenterology Melissa Omalley RDN [address] [place] [address] [phone] 06/18/2019 Office Visit [facility] [address] [phone] 12/31/2019 Office Visit Gynecology Obstetrics Rosaura Perez, CNM 132 [facility] [place] [address] [phone] Health Maintenance Due Date Last Done Comments [...] 05/26/2008 PNEUMOCOCCAL 19-64 MEDIUM RISK Completed 06/01/2010 MENINGOCOCCAL (MENACTRA) Aged Out No longer eligible based on patient's age to complete this topic documented as of this encounter Implants Not on filedocumented as of this encounter Advance Directives Documents on File Type Date Recorded 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
--- OUTSIDE RECORDS SUMMARY | 2023-05-10 23:08 | External Medical Summary | Summary of Care ---
Author Name Unknown Organization [facility] Address [place] [address] Care Team Providers Care Network Control Operators Supervisor Name Role Phone Rajwinder Carter DO Primary Care Provider [phone] Reason for Visit * Reason Comments FYI Encounter Details Date Type Department Care Team Description 04/19/2019 Telephone [facility] [address] [place] [address] Rajwinder Carter DO [address] [place], [place] [id number] FYI Allergies Active Allergy Reactions Severity Noted Date Comments Penicillins Rash 02/12/2008 documented as of this encounter (statuses as of 04/19/2019) Medications Medication Sig Dispensed Refills Start Date [...] as of this encounter (statuses as of 04/19/2019) Active Problems Problem Noted Date Gastroesophageal reflux disease 04/08/20 19 History of kidney stones 04/08/2019 History of Achilles tendon repair 2018 History of delivery 04/08/2019 History of MRSA infection 04/08/2019 History of migraine 04/08/2019 Anemia 04/08/2019 Fibromyalgia 04/08/2019 Achilles tendinitis, right leg 07/29/201 9 intermediate resident 04/08/2019 DNR (do not resuscitate) 04/08/2019 [...] as of this encounter (statuses as of 04/19/2019) Resolved Problems Problem Noted Date Resolved Date [...] pain 01/24/2012 01/17/2017 Genetic Sleep Disorder Research Other*[id number] 05/13/2011 04/07/2016 Obstructive sleep apnea 01/18/2011 12/27/19 [...] as of this encounter (statuses as of 04/19/2019) Immunizations Name Administration Dates Next Due HEP [...] Telephone Encounter - Susan Rosales RN - 04/19/2019 2:13 PM EDT noted * Telephone Encounter - [place] Germain LPN - 04/19/2019 2:11 PM EDT Routing below message as an FYI. * Telephone Encounter - Giovana Lorenzo OSA - 04/19/2019 2:06 PM EDT Aleyda from [facility] calling stating that they will be her home health agency and she will be faxing orders over for Dr. Carter to review, sign and fax back to them. documented in this encounter Plan of Treatment Upcoming Encounters Date Type Specialty Care Team Description 04/24/2019 Office Visit Family Medicine Rajwinder Carter, DO [address] [place] [address] [phone] 05/14/2019 Nutrition Services Gastroenterology Melissa Omalley, RDN [address] [place] [address] [phone] 06/18/2019 Office Visit Optometry Jarett Schmitt, OD [address] [place] [address] 12/31/2019 Office Visit Gynecology Obstetrics Rosaura Perez, CNM [address] [place] [address] [phone] Health Maintenance Due Date Last Done Comments [...] Documents on File Type Date Recorded Patient Epic Ambulatory Analyst Expl anation Advanced Directive service a kerri default Advanced Directive Advanced Directive Advanced Directive Advanced Directive Advanced Directive Advanced Directive Advanced Directive
--- OUTSIDE RECORDS SUMMARY | 2023-05-10 23:08 | External Medical Summary | Summary of Care ---
Author Name Unknown Organization [facility] Address [place] [address] Care Team Providers Care Carbide Grinder Name Role Phone Rajwinder Carter Primary Care Provider [phone] Reason for Visit * Reason Comments Hospital Follow-Up Encounter Details Date Type Department Care Team Description 04/29/2019 Telephone [facility] [address] [place], [place] [id number] Chantelle Elizondo, RN Hospital Follow-Up Allergies Active Allergy Reactions Severity Noted Date Comments Penicillins Rash 02/12/2008 documented as of this encounter (statuses as of 04/29/2019) Medications Medication Sig Dispensed Refills Start Date [...] as of this encounter (statuses as of 04/29/2019) Active Problems Problem Noted Date Gastroesophageal reflux disease 04/08/20 19 History of kidney stones 04/08/2019 History of Achilles tendon repair 2018 History of delivery 04/08/2019 History of MRSA infection 04/08/2019 History of migraine 04/08/2019 Anemia 04/08/2019 Fibromyalgia 04/08/2019 Achilles tendinitis, right leg 9 [facility] resident 04/08/2019 DNR (do not resuscitate) 04/08/2019 [...] as of this encounter (statuses as of 04/29/2019) Resolved Problems Problem Noted Date Resolved Date [...] pain 01/24/2012 01/17/2017 Genetic Sleep Disorder Research Other*[id number] 05/13/2011 04/07/2016 Obstructive sleep apnea 01/18/2011 12/27/19 [...] as of this encounter (statuses as of 04/29/2019) Immunizations Name Administration Dates Next Due HEP [...] encounter Miscellaneous Notes * Telephone Encounter - Chantelle Elizondo RN - 04/29/2019 4:34 PM EDT Transitions of Care Note Reason for Referral:Recent Admission Phone visit for follow up: BALDOMERO Admitted to: [facility], Date: Discharged to: Home, Date: 04/26/19 Diagnosis driving hospitalization: Falls, ambulatory dysfunction Source/Contact: Patient SUBJECTIVE Consent: Verbal consent for review of hospital discharge: Yes REVIEW OF SYSTEMS Patient/Other Reports: Current patient/caregiver problems or concerns: "I'm fine." CV: Denies problems Pulmonary: Denies problems Chills/Sweats/Fever:Denies chills/sweats Denies fever Appetite:Denies problems such as nausea, vomiting, burning, decreased appetite Current diet: regular Bowel: denies problems Bladder: denies problems Wound (If applicable): N/A Pain:Location- RLE Intensity- 10 (Scale 0-10) rest-decreases pain movement- increases pain Pt states she isn't taking any medications for the pain Sleep:Denies problems FUNCTIONAL STATUS: ADL'S: Needs Assistance With:Bathing, Dressing, Toileting, Transferring and Continence IADL'S: Needs Assistance With:Grocery Shopping, Cooking food, Routine Housework, Taking medications and Attending to safety Pt is transferred using a candace lift Cognitive and Mental Health: denies problems, alert and oriented x 3 and able to communicate, understand instructions, process information. MEDICATION RECONCILIATION Medications: No new medications or medication changes Pt states she was not told at time of discharge to stop taking the metformin and trulicity. She has not checked her BS since being home. Instructed to check her BS at least daily and discuss medications with her PCP at follow up appointment. Pt verbalized understanding. She states her mediations come to her in pill packs ASSESSMENT Medication Risk Assessment: No risks identified Did patient fail outpatient treatment? No Discharge instructions available for review? Yes PLAN Symptom Monitoring Interventions:Member/caregiver education - signs and symptoms to contact PrimaryCare (DO NOT DELETE-Three ervin symptoms patient is to report to PCP) 1. Hypo/hyperglycemia 2. falls 3. Increased pain Cooker CleanerRadio Performer of Care interventions/Action Plan: 5 - 7 day follow-up with PCP in place - Date: 05/02/19 Educated on role of BALDOMERO completed with patient/caregiver. Educated patient/caregiver on patient right to have input on BALDOMERO plan of care. Verification of Home Health/DME if indicated: YES PT and OT. Pt states OT therapist has called her and set up an appointment. She states she has not spoke with PT as of today. Identified Care Gaps: Yes Care Gaps closed this call: Transition of Care follow-up communication Re-evaluation of Plan of Care and progress towards goals achievement: Patient education this visit: Verbal, See above Plan to follow-up as previously scheduled, instructed to call Primary Care Provider with change in symptoms or as needed before next follow-up, verbalizes understanding and agrees with plan. Chantelle Elizondo, RN documented in this encounter Plan of Treatment Upcoming Encounters Date Type Specialty Care Team Description 05/02/2019 Office Visit Family Medicine Joel Jordan MD [address] [place] [address] [place] [address] [phone] 05/14/2019 Nutrition Services Gastroenterology Melissa Omalley, RDN [address] [place] [address] 06/18/2019 Office Visit Optometry Jarett Schmitt, OD [address] [place] [address] 12/31/2019 Office Visit Gynecology Obstetrics Rosaura Perez, CNM [address] [facility] [place] [address] [phone] Health Maintenance Due Date Last Done Comments [...] Documents on File Type Date Recorded Patient Lactation Nurse Expl anation Advanced Directive service a kerri default Advanced Directive Advanced Directive Advanced Directive Advanced Directive Advanced Directive Advanced Directive Advanced Directive
--- OUTSIDE RECORDS SUMMARY | 2023-05-10 23:08 | External Medical Summary | Summary of Care ---
Author Name Unknown Organization [place] [address] Care Team Providers Care Handbag Designer Name Role Phone JohnbrianRajwinder thacker Primary Care Provider [phone] Reason for Referral * Evaluate & Treat - Unlimited Visits (Within 10 days (routine)) Status Reason Specialty Diagnoses / Procedures Referred By Contact Referred To Contact Pending Review Specialty Services Required Occupational Medicine Diagnoses Ambulatory dysfunction Wheelchair dependent Obesity, morbid (more than 100 lbs over ideal weight or BMI > 40) (HCC) Generalized weakness Type 2 diabetes mellitus with hemoglobin A1c goal of less than 7.0% (HCC) NG (nonalcoholic steatohepatitis) Cirrhosis of liver without ascites, unspecified hepatic cirrhosis type (HCC) THAD on CPAP Joel Jordan MD [address] [place] [address] [place] [address] Reason for Visit * Reason Comments Hospital Follow-Up Encounter Details Date Type Department Care Team Description 05/02/2019 Office Visit [address] [address] Joel Jordan MD [address] [place] [address] [place] [address] [phone] Ambulatory dysfunction*; Wheelchair dependent; Obesity, morbid (more than 100 lbs over ideal weight or BMI > 40) (HCC); Generalized weakness; Type 2 diabetes mellitus with hemoglobin A1c goal of less than 7.0% (HCC); NG (nonalcoholic steatohepatitis); DNR (do not resuscitate); Cirrhosis of liver without ascites, unspecified hepatic cirrhosis type (HCC); THAD on CPAP; Need for pneumococcal vaccination; Thrombocytopenia (HCC) Allergies Active Allergy Reactions Severity Noted Date Comments Penicillins Rash 02/12/2008 documented as of this encounter (statuses as of 05/02/2019) Medications Medication Sig Dispensed Refills Start Date [...] less than 7.0% ([facility]) INJECT 24 UNITS UNDER THE [...] as of this encounter (statuses as of 05/02/2019) Active Problems Problem Noted Date Thrombocytopenia 05/02/2019 [...] as of this encounter (statuses as of 05/02/2019) Resolved Problems Problem Noted Date Resolved Date [...] pain 01/24/2012 01/17/2017 Genetic Sleep Disorder Research Other*[id number] 05/13/2011 04/07/2016 Obstructive sleep apnea 01/18/2011 12/27/19 [...] as of this encounter (statuses as of 05/02/2019) Immunizations Name Administration Dates Next Due HEP [...] Reading Time Taken Comments Blood Pressure 112/70 05/02/2019 10:34 AM EDT Pulse 92 05/02/2019 10:34 AM EDT Temperature 36.8 C (98.2 F) 05/02/2019 10:34 AM E DT Respiratory Rate 20 05/02/2019 10:34 AM EDT Oxygen Saturation - - Inhaled Oxygen Concentration - - Weight - - Height - - Body Mass Index - - documented in this encounter Progress Notes * Joel Jordan MD - 05/02/2019 10:52 AM EDT Subjective: Shaina Bustos is a 63 year old female Chief Complaint Patient presents with Hospital Follow-Up HPI: Shaina Bustos is a 63 year old female who presents with a chief complaint of Hospital Follow-Up Here for recheck after an IP stay at [facility] 04/23 through 04/26/2019, accompanies Needs a new motorized wheelchair Lives at home with , barely ambulatory, uses WC and walker but unable to arise from chair orbed, has a Svetlana lift at home, Eating fair, retaining, uses bed pans, no NVD Recently IP at [facility] in [facility] she used walker and able walked 15 and16 feet on two separate days at the SNF and upon discharge Sleeping in bed, eating frozen meals, microwavable Uses bed pans, provides the care Has PT, OT and long term care, has AM help coming in the house in the mornings [place], husbands house, it built in [address]72, two stories, but she lives on one floor, Has wheelchair, walker and svetlana lift Never smoker, no smokers in house Has CPAP, with oxygen that she uses at night Patient Active Problem List Diagnosis Code Edema [...] Chronic pain syndrome G89.4 MEDICATION USE AGREEMENT [id number] History of Clostridium difficile colitis Z86.19 Cirrhosis of liver ([facility]) K74.60 THAD on CPAP G47.33, Z99.89 Wheelchair dependent Z99.3 History of recent fall Z91.81 Pancytopenia ([facility]) D61.818 Ambulatory dysfunction R26.2 Fall [...] (do not resuscitate) Z66 Thrombocytopenia (HCC) D69.6 Current Outpatient Medications Medication Sig Dispense Refill furosemide (LASIX) 20 MG Tablet Take 20 [...] Tab by mouth daily. 34 Tab 5 Dulaglutide (TRULICITY) 1.5 MG/0.5ML SOPN Inject 1 syringeful once weekly 4 Pre-filled Pen Syringe Dosing Unit 5 cyclobenzaprine (FLEXERIL) 10 MG Tablet TAKE 1 TABLET BY MOUTH AT BEDTIME 30 Tab 0 oxybutynin (DITROPAN) 5 MG Tablet Take 1 Tab by mouth 2 times a day. Through urology 60 Tab 5 gabapentin (NEURONTIN) 300 MG Capsule One pill in am, one midday, two in pm, 180 Cap 5 levothyroxine (LEVOXYL) 150 MCG Tablet Take [...] allergies indicates: Allergen Reactions Pcn [Penicillins] Rash Past Medical History: Diagnosis Date Chronic hypoxemic respiratory failure (HCC) 04/08/2019 Chronic pain 03/27/2012 DDD (degenerative disc disease), lumbar DM type 2, goal A1c below 7 Dyslipidemia, goal LDL below 70 Hypothyroidism 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 12/27/2010 MEDICATION USE AGREEMENT 03/27/2012 7/17/12 Myalgia and myositis 03/27/2012 NG (nonalcoholic steatohepatitis) 05/02/2012 Other specified infantile cerebral palsy Oxygen dependent 04/08/2019 Restrictive lung disease 12/2014 Sleep apnea CPAP Sleep disturbance 01/24/2012 Past Surgical History: Procedure Laterality Date DELIVERY 04/20/1982 COLONOSCOPY 04/21/09 repeat in 10 years COLONOSCOPY, DIAGNOSTIC (RECTUM) 10/04/2016 normal bx, repeat 10 yrs/[facility] DENTAL SURGERY PROCEDURE NEC wisdom teeth x 4 DILATION AND CURETTAGE (D&C) EGD, FLEXIBLE, DIAGNOSTIC 10/04/2016 gastritis/[facility] EGD, FLEXIBLE, DIAGNOSTIC 01/11/2018 eso varices, retained food, repeat 1 yr/[facility] PELVIS/HIP JOINT SURGERY NEC teenager aid in walking REPAIR/GRAFT ACHILLES TENDON age 40 aid in walking Objective: The patient is a 63 year old female BP 112/70 | Pulse 92 | Temp (Src) 98.2 (Tympanic) | Resp 20 | Wt (0.000kg) General: alert, healthy, well nourished, well developed, anxious, cooperative, moderate distress, obese and smiling Sitting in wheelchair, and examined in the wheelchair Neck: supple, no adenopathy, no bruits, thyroid normal size, non-tender, without nodularity, no stridor, non-tender, neck veins flat, trachea midline Heart: regular rate & rhythm, no murmurs, no gallops, S-1 normal, S-2 normal and heart sounds are distant Lungs: chest symmetric with normal AP diameter, no chest deformities noted, no chest wall tenderness, lungs clear to auscultation, coarse sounds heard, decreased breath sounds Extremities: less than 2 second capillary refill, no joint deformities, effusion, or inflammation ASSESSMENT/PLAN: Brings forms for replacement of his motorized wheelchair Ambulatory dysfunction (Primary) - DURABLE MEDICAL EQUIPMENT - OCCUPATIONAL THERAPY REFERRAL OP Wheelchair dependent - DURABLE MEDICAL EQUIPMENT - OCCUPATIONAL THERAPY REFERRAL OP Obesity, morbid (more than 100 lbs over ideal weight or BMI > 40) ([facility]) - DURABLE MEDICAL EQUIPMENT - OCCUPATIONAL THERAPY REFERRAL OP Generalized weakness - DURABLE MEDICAL EQUIPMENT - OCCUPATIONAL THERAPY REFERRAL OP Type 2 diabetes mellitus with hemoglobin A1c goal of less than 7.0% ([facility]) - DURABLE MEDICAL EQUIPMENT - OCCUPATIONAL THERAPY REFERRAL OP NG (nonalcoholic steatohepatitis) - DURABLE MEDICAL EQUIPMENT - OCCUPATIONAL THERAPY REFERRAL OP DNR (do not resuscitate) Cirrhosis of liver without ascites, unspecified hepatic cirrhosis type (HCC) - DURABLE MEDICAL EQUIPMENT - OCCUPATIONAL THERAPY REFERRAL OP THAD on CPAP - DURABLE MEDICAL EQUIPMENT - OCCUPATIONAL THERAPY REFERRAL OP Need for pneumococcal vaccination - PNEUMOCOCCAL VACC, PCV13, HIGH RISK ADULTS, IM Thrombocytopenia (HCC) Joel Jordan MD [place] [address] [address] [facility] [address] documented in this encounter Nursing Notes * Jovana Lambert RN - 05/02/2019 11:23 AM EDT Pre-Administration Time Out Procedure Performed: Yes Patient Identified (Ask Name/Date of ): Yes Does the patient have a fever greater than 101 degrees today? No Patient allergic to latex? No Has the patient ever fainted after receiving an injection? No VFC Stock: No Immunization(s) verified: Yes, Immunization Name: Prevnar, VIS Sheet(s) given: Yes Verified Side and Site: Yes Verified Shot(s) with Parent(s)/Patient: Yes * Jovana Lambert, UMA - 05/02/2019 10:32 AM EDT Here for hospital discharge Was [facility] home Discharged Then fell Mon and Monday Admitted for [facility] for fall Now has a svetlana lift at home documented in this encounter Plan of Treatment Upcoming Encounters Date Type Specialty Care Team Description 05/14/2019 Nutrition Services Gastroenterology Melissa Oamlley, SAMANTHA [address] [place] [address] [place] [address] [phone] 06/18/2019 Office Visit Optometry Jarett Schmitt, OD [address] [place] [address] [phone] 07/03/2019 Office Visit Family Medicine [facility]winder Carter DO [address] [facility] [address] [phone] 12/31/2019 Office Visit Gynecology Obstetrics Rosaura Perez, CNM [address] [facility] [place] [address] [phone] Scheduled Referrals Name Type Priority Associated Diagnoses Orde r Schedule OCCUPATIONAL THERAPY REFERRAL OP Referral Within 10 days (routine) Ambulatory dysfunction Wheelchair dependent Obesity, morbid (more than 100 lbs over ideal weight or BMI > 40) (HCC) Generalized weakness Type 2 diabetes mellitus with hemoglobin A1c goal of less than 7.0% (HCC) NG (nonalcoholic steatohepatitis) Cirrhosis of liver without ascites, unspecified hepatic cirrhosis type (HCC) THAD on CPAP Ordered: 05/02/2019 Health Maintenance Due Date Last Done Comments [...] Ambulatory dysfunction- Primary Wheelchair dependent Wheelchair dependence Obesity, morbid (more than 100 lbs over ideal weight or BMI > 40) (HCC) Morbid obesity Generalized weakness Other malaise and fatigue Type 2 diabetes mellitus with hemoglobin A1c goal of less than 7.0% (HCC) NG (nonalcoholic steatohepatitis) Other chronic nonalcoholic liver disease DNR (do not resuscitate) Do not resuscitate status Cirrhosis of liver without ascites, unspecified hepatic cirrhosis type (HCC) THAD on CPAP Obstructive sleep apnea (adult) (pediatric) Need for pneumococcal vaccination Need for prophylactic vaccination against streptococcus pneumoniae (pneumococcus) Thrombocytopenia (HCC) Thrombocytopenia, unspecified documented in this encounter Advance Directives Documents on File Type Date Recorded Patient Electronic Warfare Officer Expl anation Advanced Directive service a kerri default Advanced Directive Advanced Directive Advanced Directive Advanced Directive Advanced Directive Advanced Directive Advanced Directive"
--- OUTSIDE RECORDS SUMMARY | 2023-05-10 23:08 | External Medical Summary | Summary of Care ---
Author Name Unknown Organization [facility] Address [place] [address] Care Team Providers Care Sandal Parts Assembler Name Role Phone Rajwinder Lara DO Primary Care Provider [phone] Reason for Visit * Reason Comments Medication Refill Encounter Details Date Type Department Care Team Description 05/06/2019 Refill [facility] [address] [place] [address] Rajwinder Lara DO [address] [place] [address] [phone] Type 2 diabetes mellitus with hemoglobin A1c goal of less than 7.0% ([facility]) Allergies Active Allergy Reactions Severity Noted Date Comments Penicillins Rash 02/12/2008 documented as of this encounter (statuses as of 05/06/2019) Medications Medication Sig Dispensed Refills Start Date End Date Status CENTRUM SILVER PO TABS 1 tab daily 1 Tab 0 2 Active vitamin c (ASCORBIC ACID) 500 MG Tablet Take 500 mg by mouth daily. 0 Active levothyroxine (LEVOXYL) 150 MCG TabletIndications:A cquired hypothyroidism Take 1 Tab by mouth daily. (at least 30 min prior to breakfast or other meds) 30 Tab 11 8 Active potassium chloride ER 10 MEQ TBCRIndications:Hyp okalemia With food. Pt reports only taking once dailly. 60 Tab 5 8 Active oxybutynin (DITROPAN) 5 MG Tablet Take 1 Tab by mouth 2 times a day. Through urology 60 Tab 5 8 Active Aspirin 81 MG Tablet Take 1 Tab by mouth daily. 34 Tab 5 9 Active traZODone (DESYREL) 50 MG TabletIndications:S leep disturbances TAKE 1 TABLET BY MOUTH AT BEDTIME 30 Tab 5 9 Active escitalopram (LEXAPRO) 20 MG Tablet [...] Pen Syringe Dosing Unit 5 9 Active cyclobenzaprine (FLEXERIL) 10 MG Tablet Take 1 Tab by mouth at bedtime. 30 Tab 0 9 Active gabapentin (NEURONTIN) 300 MG Capsule One pill in am, one midday, two in pm, 180 Cap 5 9 Active gabapentin (NEURONTIN) 300 MG Capsule One pill in am, one midday, two in pm, 180 Cap 5 8 05/06/20 19 Discontinued cyclobenzaprine (FLEXERIL) 10 MG Tablet TAKE 1 TABLET BY MOUTH AT BEDTIME 30 Tab 0 8 05/06/20 19 Discontinued Dulaglutide (TRULICITY) 1.5 MG/0.5ML SOPNIndications:Typ e 2 diabetes mellitus with hemoglobin A1c goal of less than 7.0% ([facility]) Inject 1 syringeful once weekly 4 Pre-filled Pen Syringe Dosing Unit 5 9 05/06/20 19 Discontinued documented as of this encounter (statuses as of 05/06/2019) Active Problems Problem Noted Date Thrombocytopenia 05/02/2019 [...] as of this encounter (statuses as of 05/06/2019) Resolved Problems Problem Noted Date Resolved Date [...] pain 01/24/2012 01/17/2017 Genetic Sleep Disorder Research Other*[id number] 05/13/2011 04/07/2016 Obstructive sleep apnea 01/18/2011 12/27/19 [...] as of this encounter (statuses as of 05/06/2019) Immunizations Name Administration Dates Next Due HEP [...] Telephone Encounter - Rajwinder Lara DO - 05/06/2019 2:29 PM EDT Signed Prescriptions: Disp Refills Dulaglutide (TRULICITY) 1.5 MG/0.5ML SOPN 4 Pre-*5 Sig: Inject 1 syringeful once weekly Authorizing Provider: RAJWINDER LARA cyclobenzaprine (FLEXERIL) 10 MG Tablet 30 Tab 0 Sig: Take 1 Tab by mouth at bedtime. Authorizing Provider: RAJWINDER LARA gabapentin (NEURONTIN) 300 MG Capsule 180 Cap5 Sig: One pill in am, o ne midday, two in pm, Authorizing Provider: RAJWINDER LARA * Telephone Encounter - Irish Hernández CPhT - 05/06/2019 8:38 AM EDT Pending Prescriptions: Disp Refills Dulaglutide (TRULICITY) 1.5 MG/0.5ML SOPN 4 Pre-*5 Sig: Inject 1 syringeful once weekly cyclobenzaprine (FLEXERIL) 10 MG Tablet 30 Tab 0 Sig: Take 1 Tab by mouth at bedtime. gabapentin (NEURONTIN) 300 MG Capsule 180 Cap5 Sig: One pill in am, one midday, two in pm, Last Office Visit: 05/02/2019 Next Office Visit: 07/03/2019 Scheduled Provider(s): Rajwinder Lara DO If no future appointments scheduled, and last appointment is greater than a year ago, please schedule patient for a follow-up appointment Last date the medication was ordered: 08-03-18, 09-21-18, 05-18-18 Pharmacy: [facility] [address] [place] [address] Is this request for a controlled substance?No [...] Team Description 05/14/2019 Nutrition Services Gastroenterology Melissa Omalley, SAMANTHA [address] [facility] [place] [address] [phone] 06/18/2019 Office Visit Optometry Jarett Schmitt, OD [address] [place] [address] 07/03/2019 Office Visit Family Medicine Rajwinder Lara DO [address] [place] [address] [phone] 12/31/2019 Office Visit Gynecology Obstetrics Rosaura Perez, CNM [address] [place] [address] [phone] Health Maintenance Due Date Last Done Comments [...] File Type Date Recorded Patient Public Health Veterinarian Expl anation Advanced Directive service a kerri default Advanced Directive Advanced Directive Advanced Directive Advanced Directive Advanced Directive Advanced Directive Advanced Directive
--- OUTSIDE RECORDS SUMMARY | 2023-05-10 23:08 | External Medical Summary | Summary of Care ---
Author Name Unknown Organization [facility] Address [place] [address] Care Team Providers Care Bag Valver Name Role Phone Rajwinder Carter DO Primary Care Provider [phone] Reason for Visit * Reason Comments Leg Pain Encounter Details Date Type Department Care Team Description 03/27/2019 Office Visit [facility] [address], [place] [address] Rajwinder Carter DO [address] [place] [address] [phone] Pain of right lower leg* Allergies Active Allergy Reactions Severity Noted Date Comments Penicillins Rash 02/12/2008 documented as of this encounter (statuses as of 04/25/2019) Medications Medication Sig Dispensed Refills Start Date [...] once dailly. 60 Tab 5 8 Active gabapentin (NEURONTIN) 300 MG Capsule One pill in am, one midday, two in pm, 180 Cap 5 8 Active oxybutynin (DITROPAN) 5 MG Tablet Take 1 Tab by mouth 2 times a day. Through urology 60 Tab 5 8 Active cyclobenzaprine (FLEXERIL) 10 MG Tablet TAKE 1 TABLET BY MOUTH AT BEDTIME 30 Tab 0 8 Active Dulaglutide (TRULICITY) 1.5 MG/0.5ML SOPNIndications:Typ e 2 diabetes mellitus with hemoglobin A1c goal of less than 7.0% (HCC) Inject 1 syringeful once weekly 4 Pre-filled Pen Syringe Dosing Unit 5 9 Active Aspirin 81 MG Tablet Take 1 [...] ONCE DAILY 90 Cap 3 9 Active NEBULIZER DEVIIndications:Sle ep apnea,Other dyspnea and respiratory abnormality,Other specified infantile cerebral palsy as directed 1 0 8 04/08/20 19 Discontinued albuterol-ipratropi um (DUONEB) 2.5-0.5 MG/3ML nebulizer solutionIndications :Asthma exacerbation Use 1 vial in nebulizer 180 mL 0 8 04/08/20 19 Discontinued Insulin Pen Needle 31G X 6 MM MISCIndications:Typ e 2 diabetes mellitus with hemoglobin A1c goal of less than 7.0% (HCC) Use with Lantus Solostar at bedtime 30 Each 3 8 04/08/20 19 Discontinued nystatin [id number] UNIT/GM creamIndications:Ca ndidal vulvovaginitis Apply topically to affected area 2 times a day. To affacted area for two weeks. 15 g 2 8 04/08/20 19 Discontinued Blood Glucose Monitoring Suppl (Yu RongTOUCH VERIO) w/Device KITIndications:Type 2 diabetes mellitus with hemoglobin A1c goal of less than 7.0% (HCC) Use up to 4 times a day E11.9 1 Kit 0 8 04/08/20 19 Discontinued Glucose Blood (Yu RongTOUCH VERIO) STRP Use up to four times a day as directed.DX:E11 .9 400 Strip 3 8 04/08/20 19 Discontinued fexofenadine (BERNARDA) 180 MG TabletIndications:A llergic conjunctivitis of both eyes,Allergic rhinitis due to other allergic trigger, unspecified seasonality One pill by mouth once a day as needed for allergies 30 Tab 11 8 04/08/20 19 Discontinued BD PEN NEEDLE MINI U/F 31G X 5 MMIndications:Type 2 diabetes mellitus with hemoglobin A1c goal of less than 7.0% (HCC) Use with Basaglar at bedtime. 30 Each 11 9 04/08/20 19 Discontinued cyclobenzaprine (FLEXERIL) 10 MG Tablet TAKE 1 TABLET ONCE DAILY AT BEDTIME 30 Tab 0 9 04/08/20 19 Discontinued betamethasone dipropionate (DIPROSONE) 0.05 % creamIndications:Ce llulitis of face,Psoriasis Apply topically to affected area 2 times a day. To affected area. 45 g 1 9 04/08/20 19 Discontinued nadolol (CORGARD) 20 MG Tablet TAKE 1 TABLET BY MOUTH ONCE DAILY 30 Tab 4 9 04/08/20 19 Discontinued tamsulosin (FLOMAX) 0.4 MG Capsule TAKE 1 CAPSULE BY MOUTH ONCE DAILY 30 Cap 4 9 04/18/20 19 Discontinued furosemide (LASIX) 20 MG TabletIndications:L ocalized edema,Venous stasis dermatitis of both lower extremities TAKE 1 TABLET BY MOUTH ONCE DAILY as needed for edema 30 Tab 5 9 04/08/20 19 Discontinued atorvaSTATin (LIPITOR) 40 MG TabletIndications:D yslipidemia, goal LDL below 70 TAKE 1 TABLET BY MOUTH AT BEDTIME 90 Tab 1 9 04/18/20 19 Discontinued cyclobenzaprine (FLEXERIL) 10 MG Tablet TAKE 1 TABLET BY MOUTH AT BEDTIME 30 Tab 0 9 04/18/20 19 Discontinued documented as of this encounter (statuses as of 04/25/2019) Active Problems Problem Noted Date Gastroesophageal reflux disease 04/08/20 19 History of kidney stones 04/08/2019 History of Achilles tendon repair 2018 History of delivery 04/08/2019 History of MRSA infection 04/08/2019 History of migraine 04/08/2019 Anemia 04/08/2019 Fibromyalgia 04/08/2019 Achilles tendinitis, right leg 9 [facility] resident 04/08/2019 DNR (do not resuscitate) 04/08/2019 [...] as of this encounter (statuses as of 04/25/2019) Resolved Problems Problem Noted Date Resolved Date [...] pain 01/24/2012 01/17/2017 Genetic Sleep Disorder Research Other*[id number] 05/13/2011 04/07/2016 Obstructive sleep apnea 01/18/2011 12/27/19 [...] as of this encounter (statuses as of 04/25/2019) Immunizations Name Administration Dates Next Due HEP [...] Sign Reading Time Taken Comments Blood Pressure 112/60 03/27/2019 11:52 AM EDT Pulse 80 03/27/2019 11:52 AM EDT Temperature 37.1 C (98.8 F) 03/27/2019 11:52 AM E DT Respiratory Rate 20 03/27/2019 11:52 AM EDT Oxygen Saturation - - Inhaled Oxygen Concentration - - Weight - - Height - - Body Mass Index - - documented in this encounter Progress Notes * Rajwinder Carter DO - 03/27/2019 11:44 AM EDT SUBJECTIVE: Chief Complaint Patient presents with Leg Pain HPI: Shaina Bustos is a 63 year old female who presents today with complaints or right leg pain. Pt notes that she has had issues with pain when she is standing up. She notes that it is in her knee cap. She is fallen 2-3 times in the last two weeks. She feels that her leg is giving out. They have difficulty getting her up when this happens. She did see podiatry and will be having a brace made forher right ankle. repeatedly repeats that she needs pain medication. She has tried aleve andaspirin. She has not used tylenol or anything else. 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 M48.061 Cerebral palsy (HCC) G80.9 HTN, goal below 140/90 I10 Chronic rhinitis J31.0 NG (nonalcoholic steatohepatitis) K75.81 Stasis dermatitis I87.2 DDD (degenerative disc disease), lumbar M51.36 Intermittent asthma with reliever use up to twice per week J45.20 Lymphedema I89.0 Type 2 diabetes mellitus with [...] Chronic pain syndrome G89.4 MEDICATION USE AGREEMENT [id number] History of Clostridium difficile colitis Z86.19 Cirrhosis of liver ([facility]) K74.60 THAD on CPAP G47.33, Z99.89 Wheelchair dependent Z99.3 History of recent fall Z91.81 Preop examination Z01.818 Pancytopenia ([facility]) D61.818 Current Outpatient Medications Medication Sig Dispense Refill cyclobenzaprine (FLEXERIL) 10 MG Tablet TAKE 1 TABLET BY MOUTH AT BEDTIME 30 Tab 0 atorvaSTATin (LIPITOR) 40 MG Tablet TAKE 1 TABLET BY MOUTH AT BEDTIME 90 Tab 1 insulin glargine (LANTUS SOLOSTAR) [...] BY MOUTH ONCE DAILY 30 Tab 4 furosemide (LASIX) 20 MG Tablet TAKE 1 TABLET BY MOUTH ONCE DAILY as needed for edema 30 Tab 5 MetFORMIN (GLUCOPHAGE) 1000 MG Tablet TAKE 1 TABLET BY MOUTH TWICE DAILY with food 60 Tab 4 nadolol (CORGARD) 20 MG Tablet TAKE 1 TABLET BY MOUTH ONCE DAILY 30 Tab 4 tamsulosin (FLOMAX) 0.4 MG Capsule TAKE 1 CAPSULE BY MOUTH ONCE DAILY 30 Cap 4 traZODone (DESYREL) 50 MG Tablet TAKE 1 TABLET BY MOUTH AT BEDTIME 30 Tab 5 betamethasone dipropionate (DIPROSONE) 0.05 % cream Apply topically to affected area 2 times a day. To affected area. 45 g 1 Aspirin 81 MG Tablet Take 1 Tab by mouth daily. 34 Tab 5 cyclobenzaprine (FLEXERIL) 10 MG Tablet TAKE 1 TABLET ONCE DAILY AT BEDTIME 30 Tab 0 BD PEN NEEDLE MINI U/F 31G X 5 MM Use with Basaglar at bedtime. 30 Each 11 Dulaglutide (TRULICITY) 1.5 MG/0.5ML SOPN Inject 1 syringeful once weekly 4 Pre-filled Pen Syringe Dosing Unit 5 cyclobenzaprine (FLEXERIL) 10 MG Tablet TAKE 1 TABLET BY MOUTH AT BEDTIME 30 Tab 0 oxybutynin (DITROPAN) 5 MG Tablet Take 1 Tab by mouth 2 times a day. Through urology 60 Tab 5 fexofenadine (BERNARDA) 180 MG Tablet One pill by mouth once a day as needed for allergies 30 Tab 11 gabapentin (NEURONTIN) 300 MG Capsule One pill [...] Tablet Take 500 mg by mouth daily. Glucose Blood (ViewpointUCH VERIO) STRP Use up to four times a day as directed.DX:E11.9 400 Strip 3 Blood Glucose Monitoring Suppl (Yu RongTOUCH VERIO) w/Device KIT Use up to 4 times a day E11.9 1 Kit 0 nystatin [id number] UNIT/GM cream Apply topically to affected area 2 times a day. To affacted area for two weeks. 15 g 2 albuterol-ipratropium (DUONEB) 2.5-0.5 MG/3ML nebulizer solution Use 1 vial in nebulizer 180 mL0 CENTRUM SILVER PO TABS 1 tab daily 1 Tab 0 NEBULIZER KORTNEY as directed 1 0 Insulin Pen Needle 31G X 6 MM MISC Use with Lantus Solostar at bedtime 30 Each 3 Past Medical History: Diagnosis Date Chronic pain 03/27/2012 DDD (degenerative disc disease), lumbar DM type 2, goal A1c below 7 Dyslipidemia, goal LDL below 70 Hypothyroidism 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 12/27/2010 MEDICATION USE AGREEMENT 03/27/2012 03/27/12 Myalgia and myositis 03/27/2012 NG (nonalcoholic steatohepatitis) 05/02/2012 Other specified infantile cerebral palsy Restrictive lung disease 12/2014 Sleep apnea CPAP Sleep disturbance 01/24/2012 Past Surgical History: Procedure Laterality Date DELIVERY 04/20/1982 COLONOSCOPY 04/21/09 repeat in 10 years COLONOSCOPY, DIAGNOSTIC (RECTUM) 10/04/2016 normal bx, repeat 10 yrs/[facility] DENTAL SURGERY PROCEDURE NEC wisdom teeth x 4 DILATION AND CURETTAGE (D&C) EGD, FLEXIBLE, DIAGNOSTIC 10/04/[address] [facility] EGD, FLEXIBLE, DIAGNOSTIC 01/11/2018 eso varices, retained food, repeat 1 yr/[facility] PELVIS/HIP JOINT SURGERY NEC teenager aid in walking REPAIR/GRAFT ACHILLES TENDON age 40 aid in walking Review of patient's allergies indicates: Allergen Reactions Pcn [Penicillins] Rash Family History Problem Relation Age of Onset Heart Disorder Father of [place] at age 61 Diabetes Father Heart Disorder Mother of [place] age 72 Cancer None Arthritis None Stroke [...] Topics Alcohol use: No REVIEW OF SYSTEMS: Constitutional ROS: No change in weight, No weakness, No fatigue and No fevers, sweats, or chills Pulmonary ROS: No cough or sputum. No wheezing, No shortness of breath Cardiovascular ROS: No chest pain, No shortness of breath, No dyspnea on exertion, No orthopnea Gastrointestinal ROS: No abdominal pain, No change in bowel habits, No nausea, vomiting, diarrhea, or constipation Musculoskeletal/Extremities ROS: as per HPI Skin/Integumentary ROS: No edema, No rash and No itching OBJECTIVE: BP 112/60 | Pulse 80 | Temp (Src) 98.8 (Tympanic) | Resp 20 | Wt (0.000kg) PHYSICAL EXAM: General: alert and no distress Head: Normocephalic, No masses, lesions, tenderness or abnormalities Heart: regular rate & rhythm, no murmurs and no gallops Lungs: chest symmetric with normal AP diameter, no chest deformities noted, no chest wall tenderness, lungs clear to auscultation Abdomen: abdomen soft, non-tender, normal bowel sounds and no masses or organomegaly Extremities: some edema of LE, pain with any ROM testing Skin: skin color, texture, turgor are normal, no rashes or significant lesions ASSESSMENT/PLAN: (M79.661) Pain of right lower leg (primary encounter diagnosis) Plan: XR HIP UNILAT 2-3 VIEWS INCLUDING AP PELVIS, XR KNEE 4 OR MORE VIEWS Pt will complete x-ray of hip and knee. Advised that I feel she needs further therapy. She is agreeable. Will ask home health to come to her home for evaluation and possible admission. Of note, pt was not able to get into her vehicle and lowered herself to the ground in the parking lot with help of staff. She was not able to get up. She was then transported to [facility] for evaluation. Follow-up: After hospital stay. Rajwinder Carter DO documented in this encounter Nursing Notes * Jovana Lambert RN - 03/27/2019 12:48 PM EDT Patient was seen by Dr Carter Asked that staff come and help patient to the vehicle Payal Lambert RN Patient and patient caregiver wheeled patient to vehicle Attempted to get patient into vehicle Was unable to stand on a stool that the family brought in forpatient. They normally stand on this to be transferred into the car Patient was not able to stand and eased to the ground By 4 people There were no injuries to patient Susan Rosales RN, Shanna Lambert RN In attendance Patient was placed on a cordero stretcher by Above 911 was called for lift assist [place] [employer] and [place] [facility] arrived Patient and and careworker agreed it was best to go to ED due to patient not able to walk She came to the clinic for an OV due to this Dr Carter aware of plan To ED via Ambulance [facility] [employer] Cordero stretcher went with patient EMS Will bring this back * Jovana Lambert RN - 03/27/2019 11:50 AM EDT RIGHT leg not moving 2 weeks ago Getting worse documented in this encounter Plan of Treatment Upcoming Encounters Date Type Specialty Care Team Description 05/14/2019 Nutrition Services Gastroenterology Melissa Omalley, [place] [address] [place] [address] [phone] 06/18/2019 Office Visit Optometry Jarett Schmitt, OD 16 [facility] [place] [address] 12/31/2019 Office Visit Gynecology Obstetrics Rosaura Perez, CNM [address] [facility] [place] [address] Scheduled Orders Name Type Priority Associated Diagnoses Orde r Schedule XR HIP UNILAT 2-3 VIEWS INCLUDING AP PELVIS Medical Imaging Routine Pain of right lower leg Ordered: 03/27/2019 XR KNEE 4 OR MORE VIEWS Medical Imaging Routine Pain of right lower leg Ordered: 03/27/2019 Health Maintenance Due Date Last Done Comments [...] this encounter Visit Diagnoses Diagnosis Pain of right lower leg- Primary Pain in limb documented in this encounter Advance Directives Documents on File Type Date Recorded Patient Clerical And Administrative Workers Expl anation Advanced Directive service a kerri default Advanced Directive Advanced Directive Advanced Directive Advanced Directive Advanced Directive Advanced Directive Advanced Directive"
--- OUTSIDE RECORDS SUMMARY | 2023-05-10 23:08 | External Medical Summary | Summary of Care ---
Author Name Unknown Organization [facility] Address [place] [address] Care Team Providers Care Control Systems Specialist Name Role Phone Rajwinder Carter Primary Care Provider Encounter Details Date Type Department Care Team Description 04/22/2019 Scan Encounter Unspecified Department <No scans attached> [...] pain 01/24/2012 01/17/2017 Genetic Sleep Disorder Research Other*[id number] 05/13/2011 04/07/2016 Obstructive sleep apnea 01/18/2011 12/27/19 [...] Description 04/24/2019 Office Visit [facility] [address] [facility] [address] 05/14/2019 Nutrition Services Gastroenterology Melissa Omalley RDN [address] [place] [address] [phone] 06/18/2019 [facility] [address] [phone] 12/31/2019 Office Visit Gynecology Obstetrics Rosaura Perez, CNM [address] [facility] [place] [address] [phone] Health Maintenance Due Date Last Done Comments [...] Documents on File Type Date Recorded Patient Promotional Marketing Analyst Expl anation Advanced Directive service a kerri default Advanced Directive Advanced Directive Advanced Directive Advanced Directive Advanced Directive Advanced Directive Advanced Directive
--- OUTSIDE RECORDS SUMMARY | 2023-05-10 23:08 | External Medical Summary | Summary of Care ---
Author Name Unknown Organization [facility] Address [place] [address] Care Team Providers Care Commercial Real Estate Broker Name Role Phone Rajwinder Carter Primary Care Provider Encounter Details Date Type Department Care Team Description 04/26/2019 Scan Encounter Unspecified Department <No scans attached> [...] pain 01/24/2012 01/17/2017 Genetic Sleep Disorder Research Other*[id number] 05/13/2011 04/07/2016 Obstructive sleep apnea 01/18/2011 12/27/19 [...] Office Visit Family Medicine Joel Jordan MD [address] [place] [address] [place] [address] 05/14/2019 Nutrition Services Gastroenterology Melissa Omalley, SAMANTHA [address] [place] [address] 06/18/2019 Office Visit [facility] [address] [phone] 12/31/2019 Office Visit Gynecology Obstetrics Rosaura Perez, CNM 132 [facility] [place] [address] [phone] Health Maintenance Due Date Last Done Comments [...] on File Type Date Recorded Patient Kiln Transfer Operator Expl anation Advanced Directive service a kerri default Advanced Directive Advanced Directive Advanced Directive Advanced Directive Advanced Directive Advanced Directive Advanced Directive
--- OUTSIDE RECORDS SUMMARY | 2023-05-10 23:08 | External Medical Summary | Summary of Care ---
Author Name Unknown Organization [facility] Address [place] [address] Care Team Providers Care Structural Fitter Name Role Phone Rajwinder Carter DO Primary Care Provider [phone] Reason for Visit * Reason Comments Forms Request Encounter Details Date Type Department Care Team Description 05/02/[address] [facility] [address] [place] [address] Rajiwnder Carter DO [address] [place] [address] Forms Request Allergies Active Allergy [...] pain 01/24/2012 01/17/2017 Genetic Sleep Disorder Research Other*[id number] 05/13/2011 04/07/2016 Obstructive sleep apnea 01/18/2011 12/27/19 [...] Telephone Encounter - Jovana Lambert RN - 05/02/2019 4:59 PM EDT Patient asking for OV notes / Prescription for therapist evaluation for power wheel chair Need OV for today faxed To Sandra Ext 124 Faxed documented in this encounter Plan of Treatment Upcoming Encounters Date Type Specialty Care Team Description 05/14/2019 Nutrition Services Gastroenterology Melissa Omalley, RDN [address] [facility] [place] [address] [phone] 06/18/2019 Office Visit Optometry Jarett Schmitt, OD [address] [place] [address] 07/03/2019 Office Visit Family Medicine Rajwinder Carter DO [address] [place] [address] [phone] 12/31/2019 Office Visit Gynecology Obstetrics Rosaura Perez, CNM 132 [place] [address] [phone] Health Maintenance Due Date Last Done Comments [...] Documents on File Type Date Recorded Patient Wet Silk Hanger Expl anation Advanced Directive service a kerri default Advanced Directive Advanced Directive Advanced Directive Advanced Directive Advanced Directive Advanced Directive Advanced Directive
--- OUTSIDE RECORDS SUMMARY | 2023-05-10 23:08 | External Medical Summary | Summary of Care ---
Author Name Unknown Organization [facility] Address [place] [address] Care Team Providers Care Kiss Mixer Name Role Phone Rajwinder Carter DO Primary Care Provider [phone] Reason for Visit * Reason Comments Advice Encounter Details Date Type Department Care Team Description 05/07/2019 Telephone [facility] [address] [place] [address] Rajwinder Carter DO [address] [place], [place] [id number] Advice Allergies Active Allergy Reactions Severity Noted [...] pain 01/24/2012 01/17/2017 Genetic Sleep Disorder Research Other*[id number] 05/13/2011 04/07/2016 Obstructive sleep apnea 01/18/2011 12/27/19 [...] Patient called. She received a call from [employer] that stated she was approved, but she has no idea what she is approved for. Please call the patient if you have any additional information, or need to assist her in other ways. Thank you. documented in this encounter Plan of Treatment Upcoming Encounters Date Type Specialty Care Team Description 05/14/2019 Nutrition Services Gastroenterology Melissa Omalley, SAMANTHA [address] [place] [address] [phone] 06/18/2019 Office Visit Optometry Jarett Schmitt, OD [address] [place] [address] 07/03/2019 Office Visit Family Medicine Rajwinder Carter, DO [address] [place] [address] 12/31/2019 Office Visit Gynecology Obstetrics Rosaura Perez, CNM [address] [place] [address] [phone] Health Maintenance Due Date Last Done Comments [...] Documents on File Type Date Recorded Patient Hearing Aid Technician Expl anation Advanced Directive service a kerri default Advanced Directive Advanced Directive Advanced Directive Advanced Directive Advanced Directive Advanced Directive Advanced Directive
--- OUTSIDE RECORDS SUMMARY | 2023-05-10 23:09 | External Medical Summary ---
Author Name Unknown Address [address] [place] [address] Phone Organization K01:[facility] [address] [id number] Laboratory Report Ordering Provider Test Date Status JULIAZAIN 04/05/2019 06:40:00 Final Observation Date Value Abnormality Reference Status BUN 04/05/2019 12:53 17 6-20 Fin al Creatinine 04/05/2019 12:53 0.8 0.5-1.0 Fi nal Performing Location [facility] [address] [id number]
--- OUTSIDE RECORDS SUMMARY | 2023-05-10 23:09 | External Medical Summary | Summary of Care ---
Author Name Unknown Organization [place] [address] Care Team Providers Care Envelope Sealer Name Role Phone Rajwinder Carter DO Primary Care Provider [phone] Reason for Visit * Reason Comments [facility] Visit - Discharge Encounter Details Date Type Department Care Team Description 04/18/2019 [facility] Visit [facility] Vern Zamora [address] [place] [phone] Kenya Moreland PA-C [address] [place] [phone] Fall, sequela*; Sprain of right ankle, unspecified ligament, subsequent encounter; Primary osteoarthritis of right knee; Cerebral palsy, unspecified type ([facility]); Pancytopenia ([facility]); Venous stasis dermatitis of both lower extremities; Chronic pain syndrome; Anemia, unspecified type; Achilles tendinitis, right leg; DDD (degenerative disc disease), lumbar; Fibromyalgia; 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; Vitamin D deficiency; Cirrhosis of liver without ascites, unspecified hepatic cirrhosis type ([facility]); HTN, goal below 140/90; Venous insufficiency; Restrictive lung disease; THAD on CPAP; Intermittent asthma with reliever use up to twice per week without complication; DM type 2 with diabetic peripheral neuropathy (HCC); Type 2 diabetes mellitus with hemoglobin A1c goal of less than 7.0% (HCC); Acquired hypothyroidism; Dyslipidemia, goal LDL below 70; Chronic rhinitis; Ambulatory dysfunction; Localized edema; Recurrent major depressive disorder, in partial remission (HCC); Spinal stenosis of lumbar region without neurogenic claudication; Wheelchair dependent; Insomnia, unspecified type Allergies Active Allergy Reactions Severity Noted Date Comments Penicillins Rash 02/12/2008 documented as of this encounter (statuses as of 04/18/2019) Medications Medication Sig Dispensed Refills Start Date End Date Status CENTRUM SILVER PO TABS 1 tab daily 1 Tab 0 2 Active vitamin c (ASCORBIC ACID) 500 MG Tablet Take 500 mg by mouth daily. 0 Active levothyroxine (LEVOXYL) 150 MCG TabletIndications: Acquired hypothyroidism Take 1 Tab by mouth daily. (at least 30 min prior to breakfast or other meds) 30 Tab 11 8 Active potassium chloride ER 10 MEQ TBCRIndications:Hy pokalemia With food. Pt reports only taking once [...] 0 8 Active Dulaglutide (TRULICITY) 1.5 MG/0.5ML SOPNIndications:Ty pe [...] mouth daily. Every other day 0 Active tamsulosin (FLOMAX) 0.4 MG Capsule TAKE 1 CAPSULE BY MOUTH ONCE DAILY 30 Cap 4 9 04/18/20 19 Discontinued atorvaSTATin (LIPITOR) 40 MG TabletIndications: Dyslipidemia, goal LDL below 70 TAKE 1 TABLET BY MOUTH AT BEDTIME 90 Tab 1 9 04/18/20 19 Discontinued cyclobenzaprine (FLEXERIL) 10 MG Tablet TAKE 1 TABLET BY MOUTH AT BEDTIME 30 Tab 0 9 04/18/20 19 Discontinued bisacodyl (DULCOLAX) 10 MG suppository Administer 10 mg into the rectum as needed for Constipation (on 4th AM if no BM). 0 04/18/20 19 Discontinued fleet bisacodyl (FLEET BISACODYL) 10 MG/30ML ENEM Administer 1 Enema into the rectum as needed for Constipation (on 4th PM if no BM). 0 04/18/20 19 Discontinued glucagon (GLUCAGON EMERGENCY) 1 MG KIT Inject 1 mg into a large muscle as needed for Hypoglycemia (low sugar) (BS < 50). 0 04/18/20 19 Discontinued glucose (GLUTOSE 15) 40 % GEL Take 1 Each by mouth as needed for Hypoglycemia (low sugar) (BS < 70). 0 04/18/20 19 Discontinued milk of magnesia (MILK OF MAGNESIA) 400 MG/5ML suspension Take 30 mL by mouth as needed for Constipation (on 3rd PM if no BM). 0 04/18/20 19 Discontinued documented as of this encounter (statuses as of 04/18/2019) Active Problems Problem Noted Date Gastroesophageal reflux disease 04/08/20 19 History of kidney stones 04/08/2019 History of Achilles tendon repair 2018 History of delivery 04/08/2019 History of MRSA infection 04/08/2019 History of migraine 04/08/2019 Anemia 04/08/2019 Fibromyalgia 04/08/2019 Achilles tendinitis, right leg 9 correction resident 04/08/2019 DNR (do not resuscitate) 04/08/2019 [...] as of this encounter (statuses as of 04/18/2019) Resolved Problems Problem Noted Date Resolved Date [...] pain 01/24/2012 01/17/2017 Genetic Sleep Disorder Research Other*[id number] 05/13/2011 04/07/2016 Obstructive sleep apnea 01/18/2011 12/27/19 [...] as of this encounter (statuses as of 04/18/2019) Immunizations Name Administration Dates Next Due HEP [...] as of this encounter Progress Notes * Kenya Moreland PA-C - 04/18/2019 10:09 PM EDT DISCHARGE NOTE TRANSITION EVENT: Type: Discharge to home Date: April 19 Name: Shaina Bustos Date of : 1955 This note pertains to care provided at [facility]. Please see facility medical record for original note. This note is not to be edited or addended in [facility]. Editing or addending needs to occur in the facilities medical record. Discharge Medications: Current Outpatient Medications Medication Sig Dispense [...] TABS 1 tab daily 1 Tab 0 S: Shaina Bustos is being discharged [facility]. Admitted to [facility] on 04/03/19 for PT/OT. Future recommendations: 1) PT/OT and nursing at home 2) F/U with PCP 04/24/19 3) Svetlana lift for transfers and non ambulatory at home 4) Consider out pt ortho eval of R knee at discretion of PCP Has history of : Past Medical History: Diagnosis Date Chronic hypoxemic [...] 12/2014 Sleep apnea CPAP Sleep disturbance 01/24/2012 Patient Active Problem List Diagnosis Code Edema R60.9 Venous insufficiency I87.2 Spinal stenosis of lumbar region without neurogenic claudication M48.061 Cerebral palsy ([facility]) G80.9 HTN, goal below 140/90 I10 Chronic rhinitis J31.0 NG (nonalcoholic steatohepatitis) K75.81 Venous stasis dermatitis of both lower extremities I87.2 DDD (degenerative disc disease), lumbar M51.36 Intermittent asthma with reliever use up to twice per week J45.20 Primary osteoarthritis of right knee M17.11 Lymphedema I89.0 Type 2 diabetes mellitus with hemoglobin A1c goal of less than 7.0% ([facility]) E11.9 Vitamin D deficiency E55.9 Restrictive lung disease J98.4 Obesity, morbid (more than 100 lbs over ideal weight or BMI > 40) ([facility]) E66.01 Dyslipidemia, goal LDL below 70 E78.5 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 R39.81 Acquired hypothyroidism E03.9 Chronic pain syndrome G89.4 MEDICATION USE AGREEMENT [id number] History of Clostridium difficile colitis Z86.19 Cirrhosis of liver ([facility]) K74.60 THAD on CPAP G47.33, Z99.89 Wheelchair dependent Z99.3 History of recent fall Z91.81 Pancytopenia ([facility]) D61.818 Ambulatory dysfunction R26.2 Fall W19.XXXA Sprain of right ankle S93.401A DM type 2 with diabetic peripheral neuropathy ([facility]) E11.42 Insomnia G47.00 Recurrent major depressive disorder, in partial remission ([facility]) F33.41 Impaired mobility and ADLs Z74.09 Generalized weakness R53.1 Gastroesophageal reflux disease K21.9 History of kidney stones Z87.442 History of Achilles tendon repair Z98.890 History of delivery Z98.891 History of MRSA infection Z86.14 History of migraine Z86.69 Anemia D64.9 Fibromyalgia M79.7 Achilles tendinitis, right leg M76.61 correction resident Z59.3 DNR (do not resuscitate) Z66 Past Surgical History: Procedure Laterality Date DELIVERY [...] strain: Not on file Food insecurity: Worry: Not on file Inability: Not on file Transportation needs: Medical: Not on file Non-medical: [...] file Social History Narrative 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 49 education: 12 service: no hobbies/interests: reading transfusions: no exercise: no diet: no jehovah's witness/anglican: Raised mandaen marital status: 2nd time 11/15 children: 1 gc: 0/15 for 2nd ggc: 0 pets: Dog, lots of cats exposure to violence/threats/abuse: no things to improve: no Review of patient's allergies indicates: Allergen Reactions Pcn [Penicillins] Rash Review of Systems: Constitutional ROS: No change in weight, No weakness, No fatigue and No fevers, sweats, or chills Eye ROS: No recent significant change in vision, No eye pain, redness, discharge and No diplopia Ear ROS: No ear pain, No drainage, No tinnitus or vertigo and No recent change in hearing Nose ROS: No nasal stuffiness and No significant epistaxis Mouth/Throat ROS: No thrush or No sore throat Neck ROS: No lumps or masses, No swollen glands, No recent swelling in thyroid area and No significant pain in neck Pulmonary ROS: No cough, sputum, or hemoptysis, No wheezing, No shortness of breath and No recent change in breathing Cardiovascular ROS: No chest pain, No shortness of breath, No edema, No palpitations and No syncope Gastrointestinal ROS: No abdominal pain, No change in bowel habits, No significant change in appetite, No nausea, vomiting, diarrhea, or constipation and No dysphagia Musculoskeletal/Extremities ROS: No pain, redness or swelling on the joints Skin/Integumentary ROS: No rash and No itching Neurologic ROS: No headaches and No seizures Psychiatric ROS: No depression, No anxiety and No psychosis Sleep: No sleep disorders SNF course of stay: Prior to admission at this facility she was treated at [facility]. She presented to ED after a fall in the parking lot of her PCP office. She was having R knee and ankle pain and was unable to ambulate so was admitted for further evaluation. X-rays of her knee showed moderate DJD, no acute fractures. Hip and pelvic x-ray showed moderate DJD, ankle x-ray showed Mild DJD, CT R leg showed no acute fracture of tibia or fibula with calcific tendonitis R achilles. She was felt to have contusion of the knee and sprain of R ankle. She was seen by physical therapy and due to her significant ambulatory dysfunction, was admitted here on 04/03/19 for PT/OT before d/c to home. She made no significant progress while here due to significant debility and weakness. She was advised by therapy to remain for additional care given her high level of need however her refusedthis and made decision to take her home. She remains a svetlana lift and is non ambulatory. She requires A x 1 with ADL's. She will require handicap accessible transportation. All recommendations were reviewed at length with the by therapy department and he v/u of her needs. Adequate nutrition/fluids: Yes Bowel/Bladder dysfunction: No Assistive Devices: non ambulating ADL: dependent O: PHYSICALEXAM: I reviewed the most recent facilities vitals. General: alert, no distress, well nourished and well developed Head: Normocephalic, No masses, lesions, tenderness or abnormalities Eye Exam: Conjunctiva are pink and non-injected, sclera clear Ears: External ears normal Nose: no mucosal erythema, no mucosal edema, no purulent discharge Oropharynx: no exudate, no erythema, lips, buccal mucosa, and tongue normal and mucous membranes are moist Neck: supple, no adenopathy, non-tender, neck veins flat, trachea midline Lymph: no palpable lymphadenopathy Heart: regular rate & rhythm, no murmurs and no gallops Lungs: clear bilat Abdomen: abdomen soft, non-tender, normal bowel sounds and no masses or organomegaly Extremities: chronic edema of LE bilat, stable and unchanged Basic Panel Results: BASIC METAB PANEL, BMP Lucio Dt/Tm Resulted Value Status BUN (mg/dL) 04/17/19 6:37A 04/17/19 12 F CREATININE (mg/dL) 04/17/19 6:37A 04/17/19 0.7 F E GLOM FILT RATE ( ) 04/17/19 6:37A 04/17/19 >60.0 F SODIUM (mmol/L) 04/17/19 6:37A 04/17/19 142 F POTASSIUM (mmol/L) 04/17/19 6:37A 04/17/19 3.6 F CHLORIDE (mmol/L) 04/17/19 6:37A 04/17/19 103 F CO2 (mmol/L) 04/17/19 6:37A 04/17/19 27 F ANION GAP (mmol/L) 04/17/19 6:37A 04/17/19 12 F GLUCOSE (mg/dL) 04/17/19 6:37A 04/17/19 122* F CALCIUM (mg/dL) 04/17/19 6:37A 04/17/19 8.9 F CBC Results: CBC Lucio Dt/Tm Resulted Value Status WBC (K/uL) 04/05/19 6:40A 04/05/19 3.98* F RBC (M/uL) 04/05/19 6:40A 04/05/19 3.50* F HGB (g/dL) 04/05/19 6:40A 04/05/19 10.3* F HCT (%) 04/05/19 6:40A 04/05/19 34.9* F MCV (fL) 04/05/19 6:40A 04/05/19 99.7* F MCH (pg) 04/05/19 6:40A 04/05/19 29.4 F MCHC (g/dL) 04/05/19 6:40A 04/05/19 29.5* F RDW (%) 04/05/19 6:40A 04/05/19 23.1* F PLATELET COUNT (K/uL) 04/05/19 6:40A 04/05/19 81* F MPV (fL) 04/05/19 6:40A 04/05/19 F Value: NO RESULT - ABNORMAL PLATELET DISTRIBUTION NRBC'S (/100 WBCs) 04/05/19 6:40A 04/05/19 0 F Lipid Panel Results: LIPID PANEL Luc[facility] [employer] Resulted Value Status HOURS FASTING (hours) 04/05/19 6:40A 04/05/19 >8 HOURS F TRIGLYCERIDES (mg/dL) 04/05/19 6:40A 04/05/19 79 F CHOLESTEROL (mg/dL) 04/05/19 6:40A 04/05/19 101 F HDL (mg/dL) 04/05/19 6:40A 04/05/19 42 F CHOL/HDL RATIO ( ) 04/05/19 6:40A 04/05/19 2.4 F LDL (CALCULATED) (mg/dL) 04/05/19 6:40A 04/05/19 43 F ALT Results: ALT(U/L) [employer] Resulted Value Status 04/05/19 6:40A 04/05/19 38* FINAL 12/24/18 2:36P 12/24/18 21 FINAL 02/13/18 3:27P 02/13/18 26 FINAL AST Results: AST(U/L) [employer] Resulted Value Status 04/05/19 6:40A 04/05/19 50* FINAL 12/24/18 2:36P 12/24/18 29 FINAL 02/13/18 3:27P 02/13/18 29 FINAL TSH Results: TSH(uIU/mL) Lucio Dt/Tm Resulted Value Status 04/05/19 6:40A 04/05/19 3.16 FINAL 01/30/19 12:37P 01/30/19 2.11 FINAL TSH - OUTSIDE LAB(UIU/ML) Luc[facility] Dt/Tm Resulted Value Status 08/24/18 08/27/18 0.725 FINAL Hemoglobin AIC Results: HEMOGLOBIN, A1C(%) Lucio Dt/Tm Resulted Value Status 04/05/19 6:40A 04/06/19 6.5* FINAL 09/21/18 11:23A 09/21/18 6.1* FINAL 02/13/18 3:27P 02/13/18 7.1* FINAL A: Fall, sequela (Primary) Sprain of right ankle, unspecified ligament, subsequent encounter Primary osteoarthritis of right knee Cerebral palsy, unspecified type ([facility]) Pancytopenia ([facility]) Venous stasis dermatitis of both lower extremities Chronic pain syndrome Anemia, unspecified type Achilles tendinitis, right leg DDD (degenerative disc disease), lumbar Fibromyalgia 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 Vitamin D deficiency Cirrhosis of liver without ascites, unspecified hepatic cirrhosis type (HCC) HTN, goal below 140/90 Venous insufficiency Restrictive lung disease THAD on CPAP Intermittent asthma with reliever use up to twice per week without complication DM type 2 with diabetic peripheral neuropathy (HCC) Type 2 diabetes mellitus with hemoglobin A1c goal of less than 7.0% ([facility]) Acquired hypothyroidism Dyslipidemia, goal LDL below 70 Chronic rhinitis Ambulatory dysfunction Localized edema Recurrent major depressive disorder, in partial remission ([facility]) Spinal stenosis of lumbar region without neurogenic claudication Wheelchair dependent Insomnia, unspecified type P: 1. Discharge to home 2. Home Health was consulted for nursing, PT and OT. 3. Copy of chart sent to PCP 4. Patient to follow up with PCP within 7 days. 5. I spent 50 minutes on discharge. Electronically signed by: Kenya Moreland PA-C documented in this encounter Plan of Treatment Upcoming Encounters Date Type Specialty Care Team Description 04/24/2019 Office Visit Family Medicine Rajwinder Carter, DO [address] [place] [address] [phone] 05/14/2019 Nutrition Services Gastroenterology Melissa Omalley, SAMANTHA [address] [facility] [place] [address] [phone] 06/18/2019 Office Visit Optometry Jarett Schmitt, OD [address] [place] [address] 12/31/2019 Office Visit Gynecology [facility]stetric[facility] Perez[facility] [address] [facility] [address] Health Maintenance Due Date Last Done [...] as of this encounter Visit Diagnoses Diagnosis Fall, sequela- Primary Sprain of right ankle, unspecified ligament, subsequent encounter Primary osteoarthritis of right knee Primary localized osteoarthrosis, lower leg Cerebral palsy, unspecified type (HCC) Pancytopenia (HCC) Other pancytopenia Venous stasis dermatitis of both lower extremities Chronic pain syndrome Anemia, unspecified type Achilles tendinitis, right leg DDD (degenerative disc disease), lumbar Degeneration of lumbar or lumbosacral intervertebral disc Fibromyalgia Mylagia and myositis, unspecified 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 Functional urinary incontinence Vitamin D deficiency Unspecified vitamin D deficiency Cirrhosis of liver without ascites, unspecified hepatic cirrhosis type (HCC) HTN, goal below 140/90 Unspecified essential hypertension Venous insufficiency Unspecified venous (peripheral) insufficiency Restrictive lung disease Other diseases of lung, not elsewhere classified THAD on CPAP Obstructive sleep apnea (adult) (pediatric) Intermittent asthma with reliever use up to twice per week without complication DM type 2 with diabetic peripheral neuropathy (HCC) Type II or unspecified type diabetes mellitus with neurological manifestations, not stated as uncontrolled Type 2 diabetes mellitus with hemoglobin A1c goal of less than 7.0% (HCC) Acquired hypothyroidism Unspecified hypothyroidism Dyslipidemia, goal LDL below 70 Other and unspecified hyperlipidemia Chronic rhinitis Ambulatory dysfunction Localized edema Edema Recurrent major depressive disorder, in partial remission (HCC) Spinal stenosis of lumbar region without neurogenic claudication Spinal stenosis, lumbar region, without neurogenic claudication Wheelchair dependent Wheelchair dependence Insomnia, unspecified type documented in this encounter Advance Directives Documents on File Type Date Recorded Patient Program Proposals Coordinator Expl anation Advanced Directive service a kerri default Advanced Directive Advanced Directive Advanced Directive Advanced Directive Advanced Directive Advanced Directive Advanced Directive
--- OUTSIDE RECORDS SUMMARY | 2023-05-10 23:09 | External Medical Summary ---
Author Name Unknown Address [address] [place] [address] Phone Organization K01:[facility] [address] [id number] Laboratory Report Ordering Provider Test Date Status JULIAZAIN 04/05/2019 06:40:00 Final Observation Date Value Abnormality Reference Status Fasting status Patient Ql Reported 04/05/2019 11:53 >8 HOURS Final Triglyceride 04/05/2019 12:53 79 <200 Final Performing Location [facility] [address] [facility] [address]
--- OUTSIDE RECORDS SUMMARY | 2023-05-10 23:09 | External Medical Summary | Summary of Care ---
Author Name Unknown Organization [place] [address] Care Team Providers Care Supervising Librarian Name Role Phone Rajwinder Carter Primary Care Provider [phone] Reason for Visit * Reason Comments [facility] Visit - Admission Encounter Details Date Type Department Care Team Description 04/05/2019 [facility] Visit [facility] Vern Zamora [address] [place] [address] Joel Rendon DO [address] [place] [address] Sprain of right knee, unspecified ligament, subsequent encounter*; Sprain of right ankle, unspecified ligament, subsequent encounter; Impaired mobility and ADLs; Abnormality of gait; Generalized weakness; Cerebral palsy, unspecified type (HCC); Ambulatory dysfunction; Obesity, morbid (more than 100 lbs over ideal weight or BMI > 40) (HCC); Primary osteoarthritis of right knee; Type 2 diabetes mellitus with hemoglobin A1c goal of less than 7.0% (HCC); Acquired hypothyroidism; NG (nonalcoholic steatohepatitis); Cirrhosis of liver without ascites, unspecified hepatic cirrhosis type (HCC); Intermittent asthma with reliever use up to twice per week without complication; Dyslipidemia, goal LDL below 70; Gastroesophageal reflux disease, esophagitis presence not specified; Insomnia, unspecified type; THAD on CPAP; Recurrent major depressive disorder, in partial remission (HCC); Chronic hypoxemic respiratory failure (HCC); Oxygen dependent; Edema, unspecified type; Venous insufficiency; Anemia, unspecified type; Fibromyalgia; Achilles tendinitis, right leg; Restrictive lung disease; Spinal stenosis of lumbar region without neurogenic claudication; HTN, goal below 140/90; Venous stasis dermatitis of both lower extremities; DDD (degenerative disc disease), lumbar; Lymphedema; Vitamin D deficiency; 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; History of Clostridium difficile colitis; History of kidney stones; History of Achilles tendon repair; History of delivery; History of MRSA infection; History of migraine; MCC resident; DNR (do not resuscitate) Allergies Active Allergy Reactions Severity Noted Date Comments Penicillins Rash 02/12/2008 documented as of this encounter (statuses as of 04/08/2019) Medications Medication Sig Dispensed Refills Start Date [...] with food 60 Tab 4 9 Active tamsulosin (FLOMAX) 0.4 MG Capsule TAKE 1 CAPSULE BY MOUTH ONCE DAILY 30 Cap 4 9 Active fluticasone (FLONASE) 50 MCG/ACT nasal sprayIndications:S inus congestion Administer 2 Sprays into each nostril daily. 1 Inhaler 5 9 Active atorvaSTATin (LIPITOR) 40 MG TabletIndications: Dyslipidemia, goal LDL below 70 TAKE 1 TABLET BY MOUTH AT BEDTIME 90 Tab 1 9 Active insulin glargine (LANTUS SOLOSTAR) 100 UNIT/ML SOPNIndications:Ty pe 2 diabetes mellitus with hemoglobin A1c goal of less than 7.0% (HCC) INJECT 24 UNITS UNDER THE SKIN AT BED TIME 15 mL 3 9 Active omeprazole (PRILOSEC) 20 MG CPDR TAKE 1 CAPSULE BY MOUTH ONCE DAILY 90 Cap 3 9 Active cyclobenzaprine (FLEXERIL) 10 MG Tablet TAKE 1 TABLET BY MOUTH AT BEDTIME 30 Tab 0 9 Active bisacodyl (DULCOLAX) 10 MG suppository Administer 10 mg into the rectum as needed for Constipation (on 4th AM if no BM). 0 Active ferrous sulfate (FEOSOL) 325 (65 FE) MG Tablet Take 325 mg by mouth daily with breakfast. 0 Active fleet bisacodyl (FLEET BISACODYL) 10 MG/30ML ENEM Administer 1 Enema into the rectum as needed for Constipation (on 4th PM if no BM). 0 Active glucagon (GLUCAGON EMERGENCY) 1 MG KIT Inject 1 mg into a large muscle as needed for Hypoglycemia (low sugar) (BS < 50). 0 Active glucose (GLUTOSE 15) 40 % GEL Take 1 Each by mouth as needed for Hypoglycemia (low sugar) (BS < 70). 0 Active milk of magnesia (MILK OF MAGNESIA) 400 MG/5ML suspension Take 30 mL by mouth as needed for Constipation (on 3rd PM if no BM). 0 Active NEBULIZER DEVIIndications:Sl eep apnea,Other dyspnea and respiratory abnormality,Other specified infantile cerebral palsy as directed 1 0 8 04/08/20 19 Discontinued albuterol-ipratrop ium (DUONEB) 2.5-0.5 MG/3ML nebulizer solutionIndication s:Asthma exacerbation Use 1 vial in nebulizer 180 mL 0 8 04/08/20 19 Discontinued Insulin Pen Needle 31G X 6 MM MISCIndications:Ty pe 2 diabetes mellitus with hemoglobin A1c goal of less than 7.0% (HCC) Use with Lantus Solostar at bedtime 30 Each 3 8 04/08/20 19 Discontinued nystatin [id number] UNIT/GM creamIndications:C andidal vulvovaginitis Apply topically to affected area 2 times a day. To affacted area for two weeks. 15 g 2 8 04/08/20 19 Discontinued Blood Glucose Monitoring Suppl (LK FREEMANIO) w/Device KITIndications:Typ e 2 diabetes mellitus with hemoglobin A1c goal of less than 7.0% (HCC) Use up to 4 times a day E11.9 1 Kit 0 8 04/08/20 19 Discontinued Glucose Blood (inZairUCH VERIO) STRP Use up to four times a day as directed.DX:E11. 9 400 Strip 3 8 04/08/20 19 Discontinued fexofenadine (BERNARDA) 180 MG TabletIndications: Allergic conjunctivitis of both eyes,Allergic rhinitis due to [...] 19 Discontinued betamethasone dipropionate (DIPROSONE) 0.05 % creamIndications:C ellulitis of face,Psoriasis Apply topically to affected area 2 times a day. To affected area. 45 g 1 9 04/08/20 19 Discontinued nadolol (CORGARD) 20 MG Tablet TAKE 1 TABLET BY MOUTH ONCE DAILY 30 Tab 4 9 04/08/20 19 Discontinued furosemide (LASIX) 20 MG TabletIndications: Localized edema,Venous stasis dermatitis of both lower extremities TAKE 1 TABLET BY MOUTH ONCE DAILY as needed for edema 30 Tab 5 9 04/08/20 19 Discontinued documented as of this encounter (statuses as of 04/08/2019) Active Problems Problem Noted Date Gastroesophageal reflux disease 04/08/20 19 History of kidney stones 04/08/2019 History of Achilles tendon repair 2018 History of delivery 04/08/2019 History of MRSA infection 04/08/2019 History of migraine 04/08/2019 Chronic hypoxemic respiratory failure Oxygen dependent 04/08/2019 Anemia 04/08/2019 Fibromyalgia 04/08/2019 Achilles tendinitis, [...] as of this encounter (statuses as of 04/08/2019) Resolved Problems Problem Noted Date Resolved Date Preop examination 02/21/2019 04/04/2019 Bladder tumor 10/11/2017 [...] pain 01/24/2012 01/17/2017 Genetic Sleep Disorder Research Other*[id number] 05/13/2011 04/07/2016 Obstructive sleep apnea 01/18/2011 12/27/19 [...] as of this encounter (statuses as of 04/08/2019) Immunizations Name Administration Dates Next Due HEP [...] of this encounter Progress Notes * Joel Rendon DO - 04/08/2019 12:11 PM EDT ADMISSION HISTORY and PHYSICAL TRANSITION EVENT: Type: SNF admission Date: April 03 Name: Shaina Bustos Date of : 1955 This note pertains to care provided at [facility]. Please see facility medical record for original note. This note is not to be edited or addended in [employer]. Editing or addending needs to occur in the facilities medical record. S: Shaina Bustos had been admitted to [facility] from [facility] for convalesence, PT and OT. Recently admitted to [facility] because of a fall that the patient suffered in the parking lot of her PCP's office. She complained of right knee and ankle pain. She was unable to ambulate despite no fractures being present. Her films did show moderate hip DJD, mild ankle DJD, with knee knee issues. She did have calcific tendonitis of the right Achilles tendon. Her diagnosis was contusion and sprain of the knee and ankle. She was transferred here and admitted on 04/03/19. Past Medical History: Patient Active Problem List Diagnosis Code Edema [...] Chronic pain syndrome G89.4 MEDICATION USE AGREEMENT [id number] History of Clostridium difficile colitis Z86.19 Cirrhosis [...] MRSA infection Z86.14 History of migraine Z86.69 Chronic hypoxemic respiratory failure ([facility]) J96.11 Oxygen dependent Z99.81 Anemia D64.9 Fibromyalgia M79.7 Achilles tendinitis, right leg M76.61 MCC resident Z59.3 DNR (do not resuscitate) Z66 Current Outpatient Medications Medication Sig Dispense Refill bisacodyl (DULCOLAX) 10 MG suppository Administer 10 mg into the rectum as needed for Constipation (on 4th AM if no BM). ferrous sulfate (FEOSOL) 325 (65 FE) MG Tablet Take 325 mg by mouth daily with breakfast. fleet bisacodyl (FLEET BISACODYL) 10 MG/30ML ENEM Administer 1 Enema into the rectum as needed for Constipation (on 4th PM if no BM). glucagon (GLUCAGON EMERGENCY) 1 MG KIT Inject 1 mg into a large muscle as needed for Hypoglycemia (low sugar) (BS < 50). glucose (GLUTOSE 15) 40 % GEL Take 1 Each by mouth as needed for Hypoglycemia (low sugar) (BS < 70). milk of magnesia (MILK OF MAGNESIA) 400 MG/5ML suspension Take 30 mL by mouth as needed for Constipation (on 3rd PM if no BM). cyclobenzaprine (FLEXERIL) 10 MG Tablet TAKE 1 [...] 4 Pre-filled Pen Syringe Dosing Unit 5 oxybutynin (DITROPAN) 5 MG Tablet Take [...] TABS 1 tab daily 1 Tab 0 tamsulosin (FLOMAX) 0.4 MG Capsule TAKE 1 CAPSULE BY MOUTH ONCE DAILY 30 Cap 4 cyclobenzaprine (FLEXERIL) 10 MG Tablet TAKE 1 TABLET BY MOUTH AT BEDTIME 30 Tab 0 Review of patient's allergies indicates: Allergen Reactions Pcn [Penicillins] Rash Social History Tobacco Use Smoking status: Never Smoker Smokeless tobacco: Never Used Substance Use Topics Alcohol use: No Past Surgical History: Procedure Laterality Date DELIVERY 04/20/1982 COLONOSCOPY 04/21/09 repeat in 10 years COLONOSCOPY, DIAGNOSTIC (RECTUM) 10/04/2016 normal bx, repeat 10 yrs/[facility] DENTAL SURGERY PROCEDURE NEC wisdom teeth x 4 DILATION AND CURETTAGE (D&C) EGD, FLEXIBLE, DIAGNOSTIC 10/04/2016 gastritis/[facility] EGD, FLEXIBLE, DIAGNOSTIC 01/11/2018 eso varices, retained food, repeat 1 yr/[facility] PELVIS/HIP JOINT SURGERY NEC teenager aid in walking REPAIR/GRAFT ACHILLES TENDON age 40 aid in walking Family History Problem Relation Age of Onset Heart Disorder Father of [place] at age 61 Diabetes Father Heart Disorder Mother of [place] age 72 Cancer None Arthritis None Stroke None Heart Disorder Sister Mi at age 46 Hypertension Sister Mental Disorder None Family Status Relation Status Son Alive Sis at age 2 days twin sister Sis Alive Sis Alive Bro Alive Fa Mo NONE (Not Specified) NONE (Not Specified) NONE (Not Specified) Sis (Not Specified) Sis (Not Specified) NONE (Not Specified) Review of Systems: Constitutional ROS: No change in weight, No fevers, sweats, or chills and Positive for fatigue and weakness Eye ROS: No recent significant change in vision, No eye pain, redness, discharge and No diplopia Ear ROS: No ear pain, No drainage, No tinnitus or vertigo and No recent change in hearing Nose ROS: No history of frequent colds or sinusitis, No nasal stuffiness, No history of Hay Fever and No significant epistaxis Mouth/Throat ROS: No bleeding gums, No thrush or No sore throat Neck ROS: No lumps or masses, No swollen glands, No recent swelling in thyroid area and No significant pain in neck Pulmonary ROS: No cough, sputum, or hemoptysis, No wheezing, No rales, No shortness of breath and No recent change in breathing Cardiovascular ROS: No chest pain, No shortness of breath, No dyspnea on exertion, No orthopnea, Noparoxysmal nocturnal dyspnea, No edema, No palpitations and No syncope Gastrointestinal ROS: No abdominal pain, No change in bowel habits, No significant heartburn, No significant change in appetite, No nausea, vomiting, diarrhea, or constipation, No hematemesis, No blood in stools or black tarry stools, No abdominal bloating or early satiety and No dysphagia Genito-Urinary Female ROS: No dysuria, No frequency, No incontinence and No urgency Musculoskeletal/Extremities ROS: see HPI Hematologic/Lymphatic ROS: No coagulation disorder, No anemia, No abnormal bleeding, No chills, No bruising, No HIV risk factors, No night sweats, No swollen nodes, No weight loss and No history of transfusion Skin/Integumentary ROS: No edema, No rash and No itching Neurologic ROS: No headaches and No seizures Endocrine ROS: No heat intolerance, No cold intolerance, No thyroid trouble and No excessive thirstor urination ADL skills: dependent Ambulates with walker with 2 person assist OBJECTIVE: PHYSICAL EXAM: I reviewed the most recent facilities vitals. Refer to vital signs flowsheet in prison chart.General: alert, no distress, comfortable and obese Head: Normocephalic, No masses, lesions, tenderness or abnormalities Eye Exam: PERRLA, EOMI, Conjunctiva are pink and non-injected, sclera clear Ears: External ears normal, Canals clear, TM's Normal Nose: no mucosal erythema, no mucosal edema, no purulent discharge Oropharynx: no exudate, no erythema, lips, buccal mucosa, and tongue normal and mucous membranes are moist Neck: supple, no adenopathy, no bruits, no JVD, thyroid normal size, non-tender, without nodularity Heart: regular rate & rhythm, no murmurs and no gallops Lungs: chest symmetric with normal AP diameter, no chest deformities noted, no chest wall tenderness, lungs clear to auscultation Pulses: radial=2/4, carotid=2/4 w/o bruits, dorsalis pedis=2/4 Abdomen: abdomen soft, non-tender, obese and normal bowel sounds Extremities: less than 2 second capillary refill, no joint deformities, effusion, or inflammation Neuro Exam: alert & oriented x 3 with fluent speech, no focal motor/sensory deficits, gait normal, negative findings: cranial nerves 2-12 intact ASSESSMENT: Sprain of right knee, unspecified ligament, subsequent encounter (Primary) Sprain of right ankle, unspecified ligament, subsequent encounter Impaired mobility and ADLs Abnormality of gait Generalized weakness Cerebral palsy, unspecified type (HCC) Ambulatory dysfunction Obesity, morbid (more than 100 lbs over ideal weight or BMI > 40) ([facility]) Primary osteoarthritis of right knee Type 2 diabetes mellitus with hemoglobin A1c goal of less than 7.0% (HCC) Acquired hypothyroidism NG (nonalcoholic steatohepatitis) Cirrhosis of liver without ascites, unspecified hepatic cirrhosis type (HCC) Intermittent asthma with reliever use up to twice per week without complication Dyslipidemia, goal LDL below 70 Gastroesophageal reflux disease, esophagitis presence not specified Insomnia, unspecified type THAD on CPAP Recurrent major depressive disorder, in partial remission (HCC) Chronic hypoxemic respiratory failure (HCC) Oxygen dependent Edema, unspecified type Venous insufficiency Anemia, unspecified type Fibromyalgia Achilles tendinitis, right leg Restrictive lung disease Spinal stenosis of lumbar region without neurogenic claudication HTN, goal below 140/90 Venous stasis dermatitis of both lower extremities DDD (degenerative disc disease), lumbar Lymphedema Vitamin D deficiency 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 History of Clostridium difficile colitis History of kidney stones History of Achilles tendon repair History of delivery History of MRSA infection History of migraine MCC resident DNR (do not resuscitate) PLAN: 1. Continue present medication(s): 2. Admission orders, medications, labs, hospital records and care plan reviewed. 3. Continue current treatment plan as , Heat Transfer Technician consult, Physical Therapy, Occupational Therapy and Speech Therapy ordered. 4. Care plan reviewed. 5. Advance Directives were discussed: The patient is a DNR documented in this encounter Plan of Treatment Upcoming Encounters Date Type Specialty Care Team Description 04/17/2019 Office Visit Family Medicine Rajwinder Carter DO [address] [place] [address] [phone] 05/14/2019 Nutrition Services Gastroenterology Melissa Omalley, SAMANTHA [address] [place] [address] [phone] 06/18/2019 Office Visit Optometry Jarett Schmitt, OD [address] [place] [address] 12/31/2019 Office Visit Gynecology Obstetrics Rosaura Perez, CNM [address] [facility] [place] [address] [phone] Health Maintenance Due Date Last Done Comments [...] as of this encounter Visit Diagnoses Diagnosis Sprain of right knee, unspecified ligament, subsequent encounter- Primary Sprain of right ankle, unspecified ligament, subsequent encounter Impaired mobility and ADLs Mechanical problems with limbs Abnormality of gait Generalized weakness Other malaise and fatigue Cerebral palsy, unspecified type (HCC) Ambulatory dysfunction Obesity, morbid (more than 100 lbs over ideal weight or BMI > 40) (HCC) Morbid obesity Primary osteoarthritis of right knee Primary localized osteoarthrosis, lower leg Type 2 diabetes mellitus with hemoglobin A1c goal of less than 7.0% (HCC) Acquired hypothyroidism Unspecified hypothyroidism NG (nonalcoholic steatohepatitis) Other chronic nonalcoholic liver disease Cirrhosis of liver without ascites, unspecified hepatic cirrhosis type (HCC) Intermittent asthma with reliever use up to twice per week without complication Dyslipidemia, goal LDL below 70 Other and unspecified hyperlipidemia Gastroesophageal reflux disease, esophagitis presence not specified Insomnia, unspecified type THAD on CPAP Obstructive sleep apnea (adult) (pediatric) Recurrent major depressive disorder, in partial remission (HCC) Chronic hypoxemic respiratory failure (HCC) Chronic respiratory failure Oxygen dependent Dependence on supplemental oxygen Edema, unspecified type Venous insufficiency Unspecified venous (peripheral) insufficiency Anemia, unspecified type Fibromyalgia Mylagia and myositis, unspecified Achilles tendinitis, right leg Restrictive lung disease Other diseases of lung, not elsewhere classified Spinal stenosis of lumbar region without neurogenic claudication Spinal stenosis, lumbar region, without neurogenic claudication HTN, goal below 140/90 Unspecified essential hypertension Venous stasis dermatitis of both lower extremities DDD (degenerative disc disease), lumbar Degeneration of lumbar or lumbosacral intervertebral disc Lymphedema Other lymphedema Vitamin D deficiency Unspecified vitamin D deficiency 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 Functional urinary incontinence History of Clostridium difficile colitis History of kidney stones Personal history of urinary calculi History of Achilles tendon repair Other postprocedural status History of delivery Other postprocedural status History of MRSA infection Personal history of Methicillin resistant Staphylococcus aureus History of migraine Personal history of other disorders of nervous system and sense organs MCC resident Place of occurrence, residential institution DNR (do not resuscitate) Do not resuscitate status documented in this encounter Advance Directives Documents on File Type Date Recorded Patient Radio Electrician Expl anation Advanced Directive service a kerri default Advanced Directive Advanced Directive Advanced Directive Advanced Directive Advanced Directive Advanced Directive Advanced Directive
--- OUTSIDE RECORDS SUMMARY | 2023-05-10 23:09 | External Medical Summary | Summary of Care ---
Author Name Unknown Organization [facility] Address [place] [address] Care Team Providers Care Credit Union Field Examiner Name Role Phone Rajwinder Carter DO Primary Care Provider [phone] Reason for Visit * Reason Comments Order Request Encounter Details Date Type Department Care Team Description 04/17/2019 Telephone [facility] [address] [place] [address] Rajwinder Carter DO [address] [place] [address] Order Request Allergies Active Allergy Reactions Severity Noted Date Comments Penicillins Rash 02/12/2008 documented as of this encounter (statuses as of 04/17/2019) Medications Medication Sig Dispensed Refills Start Date [...] with food 60 Tab 4 12/26/2018 Active tamsulosin (FLOMAX) 0.4 MG Capsule TAKE 1 CAPSULE BY MOUTH ONCE DAILY 30 Cap 4 12/26/2018 Active fluticasone (FLONASE) 50 MCG/ACT nasal sprayIndications:Sin us congestion Administer 2 Sprays into each nostril daily. 1 Inhaler 5 01/09/2019 Active atorvaSTATin (LIPITOR) 40 MG TabletIndications:Dy slipidemia, goal LDL below 70 TAKE 1 TABLET BY MOUTH AT BEDTIME 90 Tab 1 02/22/2019 Active insulin glargine (LANTUS SOLOSTAR) 100 UNIT/ML SOPNIndications:Type 2 diabetes mellitus with hemoglobin A1c goal of less than 7.0% (HCC) INJECT 24 UNITS UNDER THE SKIN AT BED TIME 15 mL 3 02/22/2019 Active omeprazole (PRILOSEC) 20 MG CPDR TAKE 1 CAPSULE BY MOUTH ONCE DAILY 90 Cap 3 02/22/2019 Active cyclobenzaprine (FLEXERIL) 10 MG Tablet TAKE 1 TABLET BY MOUTH AT BEDTIME 30 Tab 0 03/22/2019 Active bisacodyl (DULCOLAX) 10 MG suppository Administer [...] 3rd PM if no BM). 0 Active documented as of this encounter (statuses as of 04/17/2019) Active Problems Problem Noted Date Gastroesophageal reflux disease 04/08/20 19 History of kidney stones 04/08/2019 History of Achilles tendon repair 2018 History of delivery 04/08/2019 History of MRSA infection 04/08/2019 History of migraine 04/08/2019 Chronic hypoxemic respiratory failure Oxygen dependent 04/08/2019 Anemia 04/08/2019 Fibromyalgia 04/08/2019 Achilles tendinitis, right leg 9 half-way resident 04/08/2019 DNR (do not resuscitate) 04/08/2019 [...] as of this encounter (statuses as of 04/17/2019) Resolved Problems Problem Noted Date Resolved Date [...] pain 01/24/2012 01/17/2017 Genetic Sleep Disorder Research Other*[id number] 05/13/2011 04/07/2016 Obstructive sleep apnea 01/18/2011 12/27/19 [...] as of this encounter (statuses as of 04/17/2019) Immunizations Name Administration Dates Next Due HEP [...] Telephone Encounter - Susan Rosales RN - 04/17/2019 2:28 PM EDT DME order done for repair and faxed * Telephone Encounter - Cherelle Isabel OSA - 04/17/2019 1:37 PM EDT Patient is needing to get the left arm of the wheel chair repaired. Please fax order to [facility] in [place]. documented in this encounter Plan of Treatment Upcoming Encounters Date Type Specialty Care Team Description 04/24/2019 Office Visit Family Medicine Rajwinder Carter, [address] [place], [place] [phone] 05/14/2019 Nutrition Services Gastroenterology Melissa Omalley RDN [address] [facility] [place] [address] 06/18/2019 Office Visit Optometry Jarett Schmitt, OD [address] [place] [address] 12/31/2019 Office Visit Gynecology Obstetrics Rosaura Perez, CNM [address] [place] [address] [phone] Health Maintenance Due Date Last Done Comments [...] on File Type Date Recorded Patient Clinic Office Coordinator Expl anation Advanced Directive service a kerri default Advanced Directive Advanced Directive Advanced Directive Advanced Directive Advanced Directive Advanced Directive Advanced Directive
--- OUTSIDE RECORDS SUMMARY | 2023-05-10 23:09 | External Medical Summary | Summary of Care ---
Author Name Unknown Organization [facility] Address [place] [address] Care Team Providers Care Pallet Stone Positioner Name Role Phone Rajwinder Carter DO Primary Care Provider [phone] Reason for Visit * Reason Comments FYI Encounter Details Date Type Department Care Team Description 04/19/2019 Telephone [facility] [address] [place] [address] Rajwinder Carter DO [address], [place] [id number] FYI Allergies Active Allergy Reactions Severity Noted [...] 04/08/2019 Achilles tendinitis, right leg 07/29/201 9 care home resident 04/08/2019 DNR (do not resuscitate) 04/08/2019 [...] pain 01/24/2012 01/17/2017 Genetic Sleep Disorder Research Other*[id number] 05/13/2011 04/07/2016 Obstructive sleep apnea 01/18/2011 12/27/19 [...] - 04/19/2019 2:06 PM EDT Aleyda from [facility] calling stating that they will be her home health agency and she will be faxing orders over for Dr. Carter to review, sign and fax back to them. documented in this encounter Plan of Treatment Upcoming Encounters Date Type Specialty Care Team Description 04/24/2019 Office Visit Family Medicine Rajwinder Carter, DO [address] [place] [address] [phone] 05/14/2019 Nutrition Services Gastroenterology Melissa Omalley, RDN [address] [place] [address] [phone] 06/18/2019 Office Visit Optometry Jarett Schmitt, OD [address] [place] [address] 12/31/2019 Office Visit Gynecology Obstetrics Rosaura Perez, CNM [address] [place] [address] [phone] Health Maintenance Due Date Last Done Comments [...] on File Type Date Recorded Patient Archivist Political History Expl anation Advanced Directive service a kerri default Advanced Directive Advanced Directive Advanced Directive Advanced Directive Advanced Directive Advanced Directive Advanced Directive
--- OUTSIDE RECORDS SUMMARY | 2023-05-10 23:09 | External Medical Summary | Summary of Care ---
Author Name Unknown Organization [facility] Address [place] [address] Care Team Providers Care Vocal Music Teacher Name Role Phone Rajwinder Carter Primary Care Provider [phone] Reason for Visit * Reason Comments Skilled Visit Encounter Details Date Type Department Care Team Description 04/10/2019 Group Home Visit [facility] Vern Zamora [address] [place] [address] Kenya Moreland PA-C [address] [place] [address] [phone] Primary osteoarthritis of right knee*; Sprain of right ankle, unspecified ligament, subsequent encounter; Ambulatory dysfunction; Localized edema Allergies Active Allergy Reactions Severity Noted Date Comments Penicillins Rash 02/12/2008 documented as of this encounter (statuses as of 04/10/2019) Medications Medication Sig Dispensed Refills Start Date [...] as of this encounter (statuses as of 04/10/2019) Active Problems Problem Noted Date Gastroesophageal reflux disease 04/08/20 19 History of kidney stones 04/08/2019 History of Achilles tendon repair 2018 History of delivery 04/08/2019 History of MRSA infection 04/08/2019 History of migraine 04/08/2019 Chronic hypoxemic respiratory failure Oxygen dependent 04/08/2019 Anemia 04/08/2019 Fibromyalgia 04/08/2019 Achilles tendinitis, right leg 9 [facility] resident 04/08/2019 DNR (do not resuscitate) 04/08/2019 [...] as of this encounter (statuses as of 04/10/2019) Resolved Problems Problem Noted Date Resolved Date [...] pain 01/24/2012 01/17/2017 Genetic Sleep Disorder Research Other*[id number] 05/13/2011 04/07/2016 Obstructive sleep apnea 01/18/2011 12/27/19 [...] as of this encounter (statuses as of 04/10/2019) Immunizations Name Administration Dates Next Due HEP [...] Progress Notes * Kenya Moreland PA-C - 04/10/2019 10:31 PM EDT SKILLED VISIT Name: Shaina Bustos Date of : 1955 This note pertains to care provided at [facility]. Please see facility medical record for original note. This note is not to be edited or addended in [employer]. Editing or addending needs to occur in the facilities medical record. Subjective: Shaina Bustos is a 63 year old female. Pt is seen today for a skilled care visit. Since seen she hasbeen stable. 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 She does continue with pedal edema that she notes is worse at bedtime. She is not wearing any support stockings. She has not had hypoxia. She notes her lasix admin time is 3:00 pm. Requests to have in am. Nursing reports no acute concerns. Therapy reports that the pt is participating in PT/OT and is making small gain. She has been ambulating short distanced up to 15 ft. She is using FWW. She is planned for home eval tomorrow and for potential d/c to home on 04/19. Patient Active Problem List Diagnosis Code Edema [...] Chronic pain syndrome G89.4 MEDICATION USE AGREEMENT [id number] History of Clostridium difficile colitis Z86.19 Cirrhosis of liver ([facility]) K74.60 THAD on CPAP G47.33, Z99.89 Wheelchair dependent Z99.3 History of recent fall Z91.81 Pancytopenia ([facility]) D61.818 Ambulatory dysfunction R26.2 Fall W19.XXXA Sprain of right ankle S93.401A DM type 2 with diabetic peripheral neuropathy ([facility]) E11.42 Insomnia G47.00 Recurrent major depressive disorder, in partial remission ([facility]) F33.41 Impaired mobility and ADLs Z74.09 Generalized weakness R53.1 Gastroesophageal reflux disease K21.9 History of kidney stones Z87.442 History of Achilles tendon repair Z98.890 History of delivery Z98.891 History of MRSA infection Z86.14 History of migraine Z86.69 Chronic hypoxemic respiratory failure ([facility]) J96.11 Oxygen dependent Z99.81 Anemia D64.9 Fibromyalgia M79.7 Achilles tendinitis, right leg M76.61 [facility] resident Z59.3 DNR (do not resuscitate) Z66 Medications: Pt's current medication list is maintained at [facility] and was reviewed at this visit. 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 Alert and oriented. No distress, comfortable and cooperative. Head: Normocephalic, No masses, lesions or abnormalities. No tenderness. Eyes: Sclera clear. No discharge. Conjunctiva pink and moist. Oropharynx: No exudate, no erythema, no lesions. Mucosa pink and moist. Neck: No bruits. Trachea midline. No nuchal rigidity. Nodes: No lymphadenopathy appreciated. Heart: RRR. No murmurs and no gallops Lungs: No rhonchi, wheezing, rales. No accessory muscle use. BSx5. Abdomen: Normal bowel sounds and no bruits. Soft, non-tender. No guarding. Extremities: +2 edema LE bilat. No calf tenderness. Neuro: no acute focal changes Skin: no rashes RESULTS: All labs are available in Epic and in the pt's chart at the facility. Basic Panel Results: BASIC METAB PANEL, BMP Lucio Dt/Tm Resulted Value Status BUN (mg/dL) 04/10/19 6:45A 04/10/19 11 F CREATININE (mg/dL) 04/10/19 6:45A 04/10/19 0.7 F E GLOM FILT RATE ( ) 04/10/19 6:45A 04/10/19 >60.0 F SODIUM (mmol/L) 04/10/19 6:45A 04/10/19 144 F POTASSIUM (mmol/L) 04/10/19 6:45A 04/10/19 3.8 F CHLORIDE (mmol/L) 04/10/19 6:45A 04/10/19 105 F CO2 (mmol/L) 04/10/19 6:45A 04/10/19 26 F ANION GAP (mmol/L) 04/10/19 6:45A 04/10/19 13 F GLUCOSE (mg/dL) 04/10/19 6:45A 04/10/19 151* F CALCIUM (mg/dL) 04/10/19 6:45A 04/10/19 9.1 F CBC Results: CBC Lucio Dt/Tm Resulted [...] (/100 WBCs) 04/05/19 6:40A 04/05/19 0 F Hemoglobin AIC Results: HEMOGLOBIN, A1C(%) Lucio Dt/Tm Resulted Value Status 04/05/19 6:40A 04/06/19 6.5* FINAL 09/21/18 11:23A 09/21/18 6.1* FINAL 02/13/18 3:27P 02/13/18 7.1* FINAL ASSESSMENT: Primary osteoarthritis of right knee (Primary) Stable, cont PT/OT Sprain of right ankle, unspecified ligament, subsequent encounter As above Ambulatory dysfunction Cont PT/OT Localized edema Cont lasix, change time to 9 am Begin TEDS bilat LE knee high, off HS, on in am IMPRESSION/PLAN: - Pending studies: labs reviewed - Reviewed med list and all others are to be continued. - Continue current plan of care for all other problems. - Discussed all this with both pt and staff. - Will continue to follow. Over 45 minutes were spent in this visit more than half the time was spent counselling or coordinating care concerning the patient's DJD, ankle sprain, ambulatory dysfunction, PT/OT POC and D/C planning. Kenya Moreland PA-C 04/10/2019 TRANSITION EVENT: Type: Skilled visit Date: April 10 documented in this encounter Plan of Treatment Upcoming Encounters Date Type Specialty Care Team Description 04/17/2019 Office Visit Family Medicine Rajwinder Carter DO [address] [facility], [place] [address] [phone] 05/14/2019 Nutrition Services Gastroenterology Melissa Omalley, RDN [address] [place] [address] [phone] 06/18/2019 Office Visit Optometry Oksar Jarett Lam, OD [address] [place] [address] 12/31/2019 Office Visit Gynecology Obstetrics Rosaura Perez, CNM [address] [facility] [place] [address] [phone] Health Maintenance Due Date Last Done Comments [...] as of this encounter Visit Diagnoses Diagnosis Primary osteoarthritis of right knee- Primary Primary localized osteoarthrosis, lower leg Sprain of right ankle, unspecified ligament, subsequent encounter Ambulatory dysfunction Localized edema Edema documented in this encounter Advance Directives Documents on File Type Date Recorded Patient Insurance Verification Specialist Expl anation Advanced Directive service a kerri default Advanced Directive Advanced Directive Advanced Directive Advanced Directive Advanced Directive Advanced Directive Advanced Directive
--- OUTSIDE RECORDS SUMMARY | 2023-05-10 23:09 | External Medical Summary ---
Author Name Unknown Address [address] [place] [address] Phone Organization K01:[facility] [address] [id number] Laboratory Report Ordering Provider Test Date Status ZAIN DUMONT 04/05/2019 06:40:00 Final Observation Date Value Abnormality Reference Status AST (Aspartate aminotransferase) 04/05/2019 12:53 50 Above high normal 10-35 F inal Performing Location [facility] [address] [facility] [address]
--- OUTSIDE RECORDS SUMMARY | 2023-05-10 23:09 | External Medical Summary ---
Author Name Unknown Address [address] [place] [address] Phone Organization K01:[facility] [address] [id number] Laboratory Report Ordering Provider Test Date Status JULIAZAIN 04/17/2019 06:37:00 Final Observation Date Value Abnormality Reference Status BUN 04/17/2019 12:44 12 6-20 Fin al Creatinine 04/17/2019 12:44 0.7 0.5-1.0 Fi nal Performing Location [facility] [address] [id number]
--- OUTSIDE RECORDS SUMMARY | 2023-05-10 23:09 | External Medical Summary | Summary of Care ---
Author Name Unknown Organization [facility] Address [place] [address] Care Team Providers Care Scientific Advisor Name Role Phone Rajwinder Carter Primary Care Provider [phone] Reason for Visit * Reason Comments Skilled Visit Encounter Details Date Type Department Care Team Description 04/08/2019 [facility] Visit [facility] Vern Zamora [address] [place] [id number] Kenya Moreland PA-C [address] [place] [address] Ambulatory dysfunction*; Cerebral palsy, unspecified type (HCC); Localized edema; Dermatitis Allergies Active Allergy Reactions Severity Noted Date [...] Fibromyalgia 04/08/2019 Achilles tendinitis, right leg 9 retirement resident 04/08/2019 DNR (do not resuscitate) 04/08/2019 [...] pain 01/24/2012 01/17/2017 Genetic Sleep Disorder Research Other*[id number] 05/13/2011 04/07/2016 Obstructive sleep apnea 01/18/2011 12/27/19 [...] Progress Notes * Kenya Moreland PA-C - 04/08/2019 1:49 PM EDT SKILLED VISIT Name: Shaina Bustos Date of : 1955 This note pertains to care provided at [facility]. Please see facility medical record for original note. This note is not to be edited or addended in [employer]. Editing or addending needs to occur in the facilities medical record. Subjective: Shaina Bustos is a 63 year old female. Pt is seen today for a skilled care visit. Since seen pt notes she has been having increased swelling of her feet. She has hx chronic edema and was on lasix at home every other day. This was ordered prn when admitted here so we opted to monitor and order routine if she needed. She denies any increased SOB, no CP. She is otherwise stable. She also notes chronic rash behind her L ear that has been itchy. Says was using some cream on it at home. Nursing reports no acute concerns. Therapy reports that the pt is participating in PT/OT. She is mod A with transfers in paralell barsand is standing approx 1 rishi with the PB. She was walked 2 ft and is noted to have very poor balance. She is non ambulatory on the floor. Patient Active Problem List Diagnosis Code Edema R60.9 Venous insufficiency I87.2 Spinal stenosis of lumbar region without neurogenic claudication M48.061 Cerebral palsy ([facility]) G80.9 HTN, goal below 140/90 I10 Chronic [...] 7.0% ([facility]) E11.9 Vitamin D deficiency E55.9 Restrictive lung disease J98.4 Obesity, morbid (more than 100 lbs over ideal weight or BMI > 40) ([facility]) E66.01 Dyslipidemia, goal LDL below 70 E78.5 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 R39.81 Acquired hypothyroidism E03.9 Chronic pain syndrome G89.4 MEDICATION USE AGREEMENT [id number] History of Clostridium difficile colitis Z86.19 Cirrhosis of liver ([facility]) K74.60 THAD on CPAP G47.33, Z99.89 Wheelchair dependent Z99.3 History of recent fall Z91.81 Pancytopenia ([facility]) D61.818 Ambulatory dysfunction R26.2 Fall W19.XXXA Sprain of right ankle S93.401A DM type 2 with diabetic peripheral neuropathy ([facility]) E11.42 Insomnia G47.00 Recurrent major depressive disorder, in partial remission ([facility]) F33.41 Impaired mobility and ADLs Z74.09 Generalized weakness R53.1 Gastroesophageal reflux disease K21.9 History of kidney stones Z87.442 History of Achilles tendon repair Z98.890 History of delivery Z98.891 History of MRSA infection Z86.14 History of migraine Z86.69 Chronic hypoxemic respiratory failure ([facility]) J96.11 Oxygen dependent Z99.81 Anemia D64.9 Fibromyalgia M79.7 Achilles tendinitis, right leg M76.61 retirement resident Z59.3 DNR (do not resuscitate) Z66 Medications: Pt's current medication list is maintained at [facility] and was reviewed at this visit. 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 General: Pt is in bed for this exam. Alert and oriented. No [...] sounds and no bruits. Soft, non-tender. No guarding.. Extremities: +2 edema dorsum of feet bilat and pretibial regions. No calf tenderness. No clubbing, no cyanosis. Neuro: no acute changes Skin: erythematous scaling excoriations in post auricular area of L ear RESULTS: All labs are available in Epic and in the pt's chart at the facility. Basic Panel Results: BASIC METAB PANEL, BMP Lucio Dt/Tm Resulted Value Status BUN (mg/dL) 04/05/19 6:40A 04/05/19 17 F CREATININE (mg/dL) 04/05/19 6:40A 04/05/19 0.8 F E GLOM FILT RATE ( ) 04/05/19 6:40A 04/05/19 >60.0 F SODIUM (mmol/L) 04/05/19 6:40A 04/05/19 143 F POTASSIUM (mmol/L) 04/05/19 6:40A 04/05/19 3.9 F CHLORIDE (mmol/L) 04/05/19 6:40A 04/05/19 104 F CO2 (mmol/L) 04/05/19 6:40A 04/05/19 27 F ANION GAP (mmol/L) 04/05/19 6:40A 04/05/19 12 F GLUCOSE (mg/dL) 04/05/19 6:40A 04/05/19 183* F CALCIUM (mg/dL) 04/05/19 6:40A 04/05/19 9.1 F CBC Results: CBC Lucio Dt/Tm [...] (/100 WBCs) 04/05/19 6:40A 04/05/19 0 F ASSESSMENT: Ambulatory dysfunction (Primary) Cont PT/OT Cerebral palsy, unspecified type (HCC) Chronic and unchanged Localized edema Begin lasix 20 mg po q d x 3 days then q other day Cont current kcl BMP 04/10 Dermatitis triam cream 0.1% to L posterior ear bid x 2 wks IMPRESSION/PLAN: - Pending studies: labs reviewed - Reviewed med list and all others are to be continued. - Continue current plan of care for all other problems. - Discussed all this with both pt and staff. - Will continue to follow. Over 45 minutes were spent in this visit more than half the time was spent counselling or coordinating care concerning the patient's edema, dermatitis, amb dysfunction, PT/OT POC. Kenya Moreland PA-C 04/08/2019 TRANSITION EVENT: Type: Skilled visit Date: April 08 documented in this encounter Plan of Treatment Upcoming Encounters Date Type Specialty Care Team Description 04/17/2019 Office Visit Family Medicine Rajwinder Carter DO [address] [place] [address] 05/14/2019 Nutrition Services Gastroenterology Melissa Omalley, SAMANTHA [address] [facility] [place] [address] [phone] 06/18/2019 Office Visit Optometry Jarett Schmitt, OD [address] [place] [address] [phone] 12/31/2019 Office Visit Gynecology Obstetrics Rosaura Perez, CNM [address] [place] [address] Health [...] encounter Visit Diagnoses Diagnosis Ambulatory dysfunction- Primary Cerebral palsy, unspecified type (HCC) Localized edema Edema Dermatitis Contact dermatitis and other eczema, due to unspecified cause documented in this encounter Advance Directives Documents on File Type Date Recorded Patient Paediatrician Expl anation Advanced Directive service a kerri default Advanced Directive Advanced Directive Advanced Directive Advanced Directive Advanced Directive Advanced Directive Advanced Directive
--- OUTSIDE RECORDS SUMMARY | 2023-05-10 23:09 | External Medical Summary | Summary of Care ---
Author Name Unknown Organization [facility] Address [place] [address] Care Team Providers Care Manager Image Name Role Phone Rajwinder Carter Primary Care Provider [phone] Reason for Visit * Reason Comments Skilled Visit Encounter Details Date Type Department Care Team Description 04/15/2019 Snf Visit [facility] Vern Zamora [address] [place] [id number] Kenya Moreland PA-C [address] [place] [id number] Ambulatory dysfunction*; Localized edema; Slow transit constipation; Impaired mobility and ADLs Allergies Active Allergy Reactions Severity Noted Date Comments Penicillins Rash 02/12/2008 documented as of this encounter (statuses as of 04/15/2019) Medications Medication Sig Dispensed Refills Start Date [...] as of this encounter (statuses as of 04/15/2019) Active Problems Problem Noted Date Gastroesophageal reflux [...] as of this encounter (statuses as of 04/15/2019) Resolved Problems Problem Noted Date Resolved Date [...] pain 01/24/2012 01/17/2017 Genetic Sleep Disorder Research Other*[id number] 05/13/2011 04/07/2016 Obstructive sleep apnea 01/18/2011 12/27/19 [...] as of this encounter (statuses as of 04/15/2019) Immunizations Name Administration Dates Next Due HEP [...] Progress Notes * Kenya Moreland PA-C - 04/15/2019 1:11 PM EDT SKILLED VISIT Name: Shaina Bustos Date of : 1955 This note pertains to care provided at [facility]. Please see facility medical record for original note. This note is not to be edited or addended in [employer]. Editing or addending needs to occur in the facilities medical record. Subjective: Shaina Bustos is a 63 year old female. Pt is seen today for a skilled care visit. Since seen she hasbeen stable. She is having some issues with constipation and requesting a stool softner. She continues on lasix 20 mg q other day for LE edema. Prior to admission at this facility she was treated at [facility]. She presented to ED after a fall in the parking lot of her PCP office. She was having R knee and ankle pain and was unable to ambulate so was admitted for further evaluation. X- rays of her knee showed moderate DJD, no acute fractures. Hipand pelvic x-ray showed moderate DJD, ankle x-ray showed Mild DJD, CT R leg showed no acute fracture of tibia or fibula with calcific tendonitis R achilles. She was felt to have contusion of the kneeand sprain of R ankle. She was seen by physical therapy and due to her significant ambulatory dysfunction, was admitted here on 04/03/19 for PT/OT before d/c to home. Nursing reports no acute concerns. Therapy reports that the pt continues to participate in PT/OT. She is ambulating short distances and did have a home visit last week. Therapy feels stillm oderate limitations with functional capacityand has planned to have a trial with car transfer this week. She is planned for potential d/c end of the week. Patient Active Problem List Diagnosis Code Edema [...] Chronic pain syndrome G89.4 MEDICATION USE AGREEMENT [id number] History of Clostridium difficile colitis Z86.19 Cirrhosis [...] of migraine Z86.69 Chronic hypoxemic respiratory failure ([facility]) J96.11 Oxygen dependent Z99.81 Anemia D64.9 Fibromyalgia M79.7 Achilles tendinitis, right leg M76.61 [facility] resident Z59.3 DNR (do not resuscitate) Z66 Medications: Pt's current medication list is maintained at [facility] and was reviewed at this [...] file Gets together: Not on file Attends synagogue service: Not on file Active member of [...] file Social History Narrative 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 Soft, non-tender. No guarding. Extremities: chronic edema LE, +1. No calf tenderness. No clubbing, no cyanosis. Neuro: no focal deficits Skin: no rashes RESULTS: All labs are [...] F ASSESSMENT: Ambulatory dysfunction (Primary) Cont PT/OT Localized edema Cont lasixc 20 mg q o d Slow transit constipation Add colace 100 mgbid Impaired mobility and ADLs Cont PT/OT Car transfer trial this week Potential d/c to home end of the week IMPRESSION/PLAN: - Pending studies: labs reviewed - Reviewed med list and all others are to be continued. - Continue current plan of care for all other problems. - Discussed all this with both pt and staff. - Will continue to follow. Over 45 minutes were spent in this visit more than half the time was spent counselling or coordinating care concerning the patient's ambulatory dysfunction, debility, edema, constipation, PT/OT POC and D/C planning. Kenya Moreland PA-C 04/15/2019 TRANSITION EVENT: Type: Skilled visit Date: April 15 documented in this encounter Plan of Treatment Upcoming Encounters Date Type Specialty Care Team Description 04/17/2019 Office Visit [facility] [address] [facility] [address] [phone] 05/14/2019 Nutrition Services Gastroenterology Melissa Omalley, RDN [address] [place] [address] [phone] 06/18/2019 Office Visit Optometry Oskar Jarett Lam, OD [address] [place] [address] 12/31/2019 Office Visit Gynecology Obstetrics Rosaura Perez, CNM [address] [facility] [place] [address] [phone] Health Maintenance Due Date Last Done Comments [...] encounter Visit Diagnoses Diagnosis Ambulatory dysfunction- Primary Localized edema Edema Slow transit constipation Impaired mobility and ADLs Mechanical problems with limbs documented in this encounter Advance Directives Documents on File Type Date Recorded Patient Inside Sales Expl anation Advanced Directive service a kerri default Advanced Directive Advanced Directive Advanced Directive Advanced Directive Advanced Directive Advanced Directive Advanced Directive
--- OUTSIDE RECORDS SUMMARY | 2023-05-10 23:09 | External Medical Summary ---
Author Name Unknown Address [address] [place] [address] Phone Organization K01:[facility] [address] [id number] Laboratory Report Ordering Provider Test Date Status ZAIN DUMONT 04/05/2019 06:40:00 Final Observation Date Value Abnormality Reference Status Iron 04/05/2019 12:53 50 33-151 Fin al Performing Location [facility] [address] [id number]
--- OUTSIDE RECORDS SUMMARY | 2023-05-10 23:09 | External Medical Summary ---
Author Name Unknown Address [address] [place] [address] Phone Organization K01:[facility] [address] [id number] Laboratory Report Ordering Provider Test Date Status LUCY DUMONTKLEY 04/10/2019 06:45:00 Final Observation Date Value Abnormality Reference Status BUN 04/10/2019 12:22 11 6-20 Fin al Creatinine 04/10/2019 12:22 0.7 0.5-1.0 Fi nal Performing Location [facility] [address] [id number]
--- OUTSIDE RECORDS SUMMARY | 2023-05-10 23:09 | External Medical Summary ---
Author Name Unknown Address [facility] [place] [address] Phone Organization K01:[facility] [address] [id number] Laboratory Report Ordering Provider Test Date Status ZAIN DUMONT 04/05/2019 06:40:00 Final Observation Date Value Abnormality Reference Status HbA1C 04/06/2019 06:11 6.5 Above high normal 4.0-5 .6 Final Performing Location [facility] [address] [facility] [address]
--- OUTSIDE RECORDS SUMMARY | 2023-05-10 23:09 | External Medical Summary ---
Author Name Unknown Address [address] [place] [address] Phone Organization K01:[facility] [address] [id number] Laboratory Report Ordering Provider Test Date Status ZAIN DUMONT 04/05/2019 06:40:00 Final Observation Date Value Abnormality Reference Status TSH 04/05/2019 13:27 3.16 0.27-4.2 Fin al Performing Location [place] [id number]
--- OUTSIDE RECORDS SUMMARY | 2023-05-10 23:09 | External Medical Summary ---
Author Name Unknown Address [address] [place] [address] Phone Organization K01:[facility] [address] [address] Laboratory Report Ordering Provider Test Date Status ZAIN DUMONT 04/05/2019 06:40:00 Final Observation Date Value Abnormality Reference Status ALT (Alanine aminotransferase) 04/05/2019 12:53 38 Above high normal 10-35 F inal Performing Location [facility] [address] [id number]
--- OUTSIDE RECORDS SUMMARY | 2023-05-10 23:10 | External Medical Summary | Summary of Care ---
Author Name Unknown Organization [facility] [place] [address] Care Team Providers Care Hogshead Dumper Name Role Phone Rajwinder Carter DO Primary Care Provider [phone] Encounter Details Date Type Department Care Team Description 03/27/2019 Scan Encounter Unspecified Department <No scans attached> Allergies Active Allergy Reactions Severity Noted Date Comments Penicillins Rash 02/12/2008 documented as of this encounter (statuses as of 03/28/2019) Medications Medication Sig Dispensed Refills Start Date End Date Status NEBULIZER DEVIIndications:Slee p apnea,Other dyspnea and respiratory abnormality,Other specified infantile cerebral palsy as directed 1 0 03/24/2008 Active CENTRUM SILVER PO TABS 1 tab daily 1 Tab 0 05/25/2012 Active albuterol-ipratropiu m (DUONEB) 2.5-0.5 MG/3ML nebulizer solutionIndications: Asthma exacerbation Use 1 vial in nebulizer 180 mL 0 10/09/2017 Active Insulin Pen Needle 31G X 6 MM MISCIndications:Type 2 diabetes mellitus with hemoglobin A1c goal of less than 7.0% ([facility]) Use with Lantus Solostar at bedtime 30 Each 3 10/11/2017 Active nystatin 819470 UNIT/GM creamIndications:Can didal vulvovaginitis Apply topically to affected area 2 times a day. To affacted area for two weeks. 15 g 2 10/12/2017 Active Blood Glucose Monitoring Suppl (ONETOUCH VERIO) w/Device KITIndications:Type 2 diabetes mellitus with hemoglobin A1c goal of less than 7.0% (HCC) Use up to 4 times a day E11.9 1 Kit 0 10/17/2017 Active Glucose Blood (ONETOUCH VERIO) STRP Use up to four times a day as directed.DX:E11. 9 400 Strip 3 12/04/2017 Active vitamin c (ASCORBIC ACID) 500 MG [...] once dailly. 60 Tab 5 05/18/2018 Active fexofenadine (BERNARDA) 180 MG TabletIndications:Al lergic conjunctivitis of both eyes,Allergic rhinitis due to other allergic trigger, unspecified seasonality One pill by mouth once a day as needed for allergies 30 Tab 11 05/18/2018 Active gabapentin (NEURONTIN) 300 MG Capsule [...] Pen Syringe Dosing Unit 5 09/21/2018 Active BD PEN NEEDLE MINI U/F 31G X 5 MMIndications:Type 2 diabetes mellitus with hemoglobin A1c goal of less than 7.0% (HCC) Use with Basaglar at bedtime. 30 Each 11 09/21/2018 Active cyclobenzaprine (FLEXERIL) 10 MG Tablet TAKE 1 TABLET ONCE DAILY AT BEDTIME 30 Tab 0 10/11/2018 Active Aspirin 81 MG Tablet Take 1 Tab by mouth daily. 34 Tab 5 11/06/2018 Active betamethasone dipropionate (DIPROSONE) 0.05 % creamIndications:Johana lulitis of face,Psoriasis Apply topically to affected area 2 times a day. To affected area. 45 g 1 11/26/2018 Active traZODone (DESYREL) 50 MG TabletIndications:Sl eep [...] with food 60 Tab 4 12/26/2018 Active nadolol (CORGARD) 20 MG Tablet TAKE 1 TABLET BY MOUTH ONCE DAILY 30 Tab 4 12/26/2018 Active tamsulosin (FLOMAX) 0.4 MG Capsule TAKE 1 CAPSULE BY MOUTH ONCE DAILY 30 Cap 4 12/26/2018 Active furosemide (LASIX) 20 MG TabletIndications:Lo calized edema,Venous stasis dermatitis of both lower extremities TAKE 1 TABLET BY MOUTH ONCE DAILY as needed for edema 30 Tab 5 12/26/2018 Active fluticasone (FLONASE) 50 MCG/ACT nasal [...] AT BEDTIME 30 Tab 0 03/22/2019 Active documented as of this encounter (statuses as of 03/28/2019) Active Problems Problem Noted Date Preop examination 02/21/2019 Pancytopenia 02/21/2019 Wheelchair dependent 12/21/2018 History of [...] term Vitamin D deficiency 09/26/2013 Lymphedema 03/11/2013 Intermittent asthma with reliever use up to twice per week 01/09/2013 Stasis dermatitis 05/07/2012 NG (nonalcoholic steatohepatitis) 04/12 HTN, goal below 140/90 03/27/2012 Chronic rhinitis 03/27/2012 Cerebral palsy 01/24/2012 Spinal stenosis of lumbar region without neurogenic claudication 12/27/2010 DDD (degenerative disc disease), lumbar Dyslipidemia, goal LDL below 70 documented as of this encounter (statuses as of 03/28/2019) Resolved Problems Problem Noted Date Resolved Date 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 Hypothyroidism 09/24/2007 03/27/2012 Dyslipidemia, goal LDL below 160 09/24/2007 08/25/2009 Overview: Per Lipid Taxonomy. Other specified infantile cerebral palsy 008 01/24/2012 Abdominal pain, right upper quadrant 09/24/2007 07/25/2011 OA OF LUMBAR SPINE 09/24/2007 06/07/2016 Prediabetes 10/28/2013 documented as of this encounter (statuses as of 03/28/2019) Immunizations Name Administration Dates Next Due HEP [...] Encounters Date Type Specialty Care Team Description 04/11/2019 Office Visit Gastroenterology Lyssa Stout CRNP [address] [facility] [place] [address] [phone] 04/17/2019 Office Visit Family Medicine Rajwinder Carter DO [address] [place], [place] [address] 05/14/2019 Nutrition Services Gastroenterology Melissa Omalley, SAMANTHA [address] [facility] [place] [address] [phone] 06/18/2019 Office Visit Optometry Jarett Schmitt, OD [address] [place] [address] 12/31/2019 Office Visit Gynecology Obstetrics Rosaura Perez CNM [address] [facility] [place] [address] [phone] Health Maintenance Due Date Last Done Comments DIABETES-HGBA1C EVERY 6 MONTHS 03/21/2019 09/21/2018, 02/13/2018, 10/11/2017, Additional history exists BREAST CANCER SCREENING DISCUSSION [...] Documents on File Type Date Recorded Patient Call Worker Person Expl anation Advanced Directive service a kerri default Advanced Directive Advanced Directive Advanced Directive Advanced Directive Advanced Directive Advanced Directive Advanced Directive
--- OUTSIDE RECORDS SUMMARY | 2023-05-10 23:10 | External Medical Summary | Summary of Care ---
Author Name Unknown Organization [place] [address] Care Team Providers Care Telemetry Nurse Name Role Phone Rajwinder Carter DO Primary Care Provider [phone] Encounter Details Date Type Department Care Team Description 04/03/2019 Scan Encounter Unspecified Department <No scans attached> Allergies Active Allergy Reactions Severity Noted Date Comments Penicillins Rash 02/12/2008 documented as of this encounter (statuses as of 04/04/2019) Medications Medication Sig Dispensed Refills Start Date [...] than 7.0% ([facility]) Use with Lantus Solostar at bedtime 30 Each 3 10/11/2017 Active nystatin 145205 UNIT/GM creamIndications:Can didal vulvovaginitis Apply topically to [...] as of this encounter (statuses as of 04/04/2019) Active Problems Problem Noted Date Preop examination [...] as of this encounter (statuses as of 04/04/2019) Resolved Problems Problem Noted Date Resolved Date [...] pain 01/24/2012 01/17/2017 Genetic Sleep Disorder Research Other*[id number] 05/13/2011 04/07/2016 Obstructive sleep apnea 01/18/2011 12/27/19 [...] as of this encounter (statuses as of 04/04/2019) Immunizations Name Administration Dates Next Due HEP [...] Description 04/17/2019 Office Visit Family Medicine Rajwinder Carter, DO [address] [facility] [place] [address] 05/14/2019 Nutrition Services Gastroenterology Melissa Omalley, [place] [address] [place] [address] [phone] 06/18/2019 Office Visit Optometry Jarett Schmitt, OD [address] [place] [address] 12/31/2019 Office Visit Gynecology Obstetrics Rosaura Perez, CNM [address] [facility] [place] [address] [phone] Health Maintenance Due Date Last Done Comments [...] Type Date Recorded Patient Director Of Development Expl anation Advanced Directive service a kerri default Advanced Directive Advanced Directive Advanced Directive Advanced Directive Advanced Directive Advanced Directive Advanced Directive
--- OUTSIDE RECORDS SUMMARY | 2023-05-10 23:10 | External Medical Summary | Summary of Care ---
Author Name Unknown Organization [facility] [address] Care Team Providers Care Loans Officer Name Role Phone Rajwinder Carter DO Primary Care Provider [phone] Encounter Details Date Type Department Care Team Description 03/04/2019 Scan Encounter Unspecified Department <No scans attached> Allergies Active Allergy Reactions Severity Noted Date Comments Penicillins Rash 02/12/2008 documented as of this encounter (statuses as of 03/06/2019) Medications Medication Sig Dispensed Refills Start Date [...] 7.0% ([facility]) Use with Lantus Solostar at bedtime 30 Each 3 10/11/2017 Active nystatin 216233 UNIT/GM creamIndications:Can didal vulvovaginitis Apply topically to [...] nostril daily. 1 Inhaler 5 01/09/2019 Active cyclobenzaprine (FLEXERIL) 10 MG Tablet TAKE 1 TABLET BY MOUTH AT BEDTIME 30 Tab 0 02/28/2019 Active atorvaSTATin (LIPITOR) 40 MG TabletIndications:Dy slipidemia, [...] ONCE DAILY 90 Cap 3 02/22/2019 Active documented as of this encounter (statuses as of 03/06/2019) Active Problems Problem Noted Date Preop examination [...] as of this encounter (statuses as of 03/06/2019) Resolved Problems Problem Noted Date Resolved Date [...] pain 01/24/2012 01/17/2017 Genetic Sleep Disorder Research Other*[id number] 05/13/2011 04/07/2016 Obstructive sleep apnea 01/18/2011 12/27/19 [...] as of this encounter (statuses as of 03/06/2019) Immunizations Name Administration Dates Next Due HEP [...] Office Visit Gastroenterology Lyssa Stout CRNP [address] [facility] [place] [address] [phone] 04/17/2019 Office Visit Family Medicine Rajwinder Carter DO [address] [place], [place] [address] 05/14/2019 Nutrition Services Gastroenterology Melissa Omalley, SAMANTHA [address] [facility] [place] [address] [phone] 06/18/2019 Office Visit Optometry Jarett Schmitt, OD [address] [place] [address] 12/31/2019 Office Visit Gynecology Obstetrics Rosaura Perez CNM [address] [facility] [place] [address] [phone] Health Maintenance Due Date Last Done Comments [...] 05/26/2008 PNEUMOCOCCAL 19-64 MEDIUM RISK Completed 06/01/2010 Influenza Vaccine (FLU shot) Completed 01/2018, 07/10/2017, 06/07/2016, Additional history exists MENINGOCOCCAL (MENACTRA) Aged Out No longer eligible based on patient's age to complete this topic documented as of this encounter Implants Not on filedocumented as of this encounter Advance Directives Documents on File Type Date Recorded Patient Drawing In Machine Tender Helper Expl anation Advanced Directive service a kerri default Advanced Directive Advanced Directive Advanced Directive Advanced Directive Advanced Directive Advanced Directive Advanced Directive
--- OUTSIDE RECORDS SUMMARY | 2023-05-10 23:10 | External Medical Summary | Summary of Care ---
Author Name Unknown Organization [place] [address] Care Team Providers Care Gymnastics Instructor Name Role Phone Rajwinder Carter DO Primary Care Provider [phone] Reason for Visit * Reason Comments Half-Way Visit - Admission Encounter Details Date Type Department Care Team Description 04/04/2019 Half-Way Visit [facility] Vern Zamora [address] [place] [address] Kenya Moreland PA-C [address] [place] [address] Ambulatory dysfunction*; Primary osteoarthritis of right knee; Cerebral palsy, unspecified type ([facility]); Fall, sequela; Sprain of right ankle, unspecified ligament, subsequent encounter; Type 2 diabetes mellitus with hemoglobin A1c goal of less than 7.0% ([facility]); Pancytopenia ([facility]); HTN, goal below 140/90; THAD on CPAP; Dyslipidemia, goal LDL below 70; DM type 2 with diabetic peripheral neuropathy ([facility]); 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; Insomnia, unspecified type; Recurrent major depressive disorder, in partial remission ([facility]); Impaired mobility and ADLs; Generalized weakness Allergies Active Allergy Reactions Severity Noted Date [...] bedtime 30 Each 3 10/11/2017 Active nystatin 319684 UNIT/GM creamIndications:Can didal vulvovaginitis Apply topically to affected area 2 times a day. To affacted area for two weeks. 15 g 2 10/12/2017 Active Blood Glucose Monitoring Suppl (Roost) w/Device KITIndications:Type 2 diabetes mellitus with hemoglobin A1c goal of less than 7.0% (HCC) Use up to 4 times a day E11.9 1 Kit 0 10/17/2017 Active Glucose Blood (Play It InteractiveUCH VERBridgestream) STRP Use up to four times a [...] of 04/04/2019) Active Problems Problem Noted Date Ambulatory dysfunction 04/04/2019 Fall 04/04/2019 Sprain of [...] pain 01/24/2012 01/17/2017 Genetic Sleep Disorder Research Other*[id number] 05/13/2011 04/07/2016 Obstructive sleep apnea 01/18/2011 12/27/19 [...] Progress Notes * Kenya Moreland PA-C - 04/04/2019 10:57 AM EDT ON SERVICE NOTE Name: Shaina Bustos Date of : 1955 This note pertains to care provided at [facility]. Please see facility medical record for original note. This note is not to be edited or addended in [facility]. Editing or addending needs to occur in the facilities medical record. Subjective: Shaina Bustos is a 63 year old female. Pt is seen today for admission to this facility. Prior to admission at this facility she was treated at [facility]. She presented to ED after a fall in the parking lotof her PCP office. She was having R knee and ankle pain and was unable to ambulate so was admitted for further evaluation. X-rays of her knee showed moderate DJD, no acute fractures. Hip and pelvic x-ray showed moderate DJD, ankle x-ray showed Mild DJD, CT R leg showed no acute fracture of tibia orfibula with calcific tendonitis R achilles. She was felt to have contusion of the knee and sprain of R ankle. She was seen by physical therapy and due to her significant ambulatory dysfunction, was admitted here on 04/03/19 for PT/OT before d/c to home. Patient Active Problem List Diagnosis Code Spinal stenosis of lumbar region without neurogenic claudication M48.061 Cerebral palsy ([facility]) G80.9 HTN, goal below 140/90 I10 Chronic rhinitis J31.0 NG (nonalcoholic steatohepatitis) K75.81 Stasis dermatitis I87.2 DDD (degenerative disc disease), lumbar M51.36 Intermittent asthma with reliever use up to twice per week J45.20 Primary osteoarthritis of right knee M17.11 Lymphedema I89.0 Type 2 diabetes mellitus with hemoglobin A1c goal of less than 7.0% ([facility]) E11.9 Vitamin D deficiency E55.9 Restrictive lung disease J98.4 Obesity, morbid (more than 100 lbs over ideal weight or BMI > 40) ([facility]) E66.01 Dyslipidemia, goal LDL below 70 E78.5 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 R39.81 Acquired hypothyroidism E03.9 Chronic pain syndrome G89.4 MEDICATION USE AGREEMENT [id number] History of Clostridium difficile colitis Z86.19 Cirrhosis [...] mobility and ADLs Z74.09 Generalized weakness R53.1 Review of patient's allergies indicates: Allergen Reactions [...] file Gets together: Not on file Attends cheondoism service: Not on file Active member of [...] file Social History Narrative 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 General: Pt is in bed for this exam. Alert and oriented. No distress and cooperative. Mental Status: oriented x 3 Head: Normocephalic, No masses, lesions or abnormalities. [...] no bruits. Soft, non-tender. No guarding. Extremities: stable chronic edema. No calf tenderness. No clubbing, no cyanosis. Lateral flexion ofR foot chronic Neuro: Speech fluent and appropriate. No focal deficits noted. Skin:no rashes ASSESSMENT: Ambulatory dysfunction (Primary) Primary osteoarthritis of right knee Cerebral palsy, unspecified type (HCC) Fall, sequela Sprain of right ankle, unspecified ligament, subsequent encounter Type 2 diabetes mellitus with hemoglobin A1c goal of less than 7.0% (HCC) Pancytopenia (HCC) HTN, goal below 140/90 THAD on CPAP Dyslipidemia, goal LDL below 70 DM type 2 with diabetic peripheral neuropathy (HCC) 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 Insomnia, unspecified type Recurrent major depressive disorder, in partial remission ([facility]) Impaired mobility and ADLs Generalized weakness IMPRESSION/PLAN: - Pending studies: CBC, BMP, TSH, Lipids, ALT, AST, iron 04/05 - Reviewed and approved medication list. all are new or revised. Medications are now as follows: Current Outpatient Medications Medication Sig Dispense Refill [...] Sprays into each nostril daily. 1 Inhaler5 escitalopram (LEXAPRO) 20 MG Tablet TAKE 1 [...] topically to affected area 2 times a day.To affected area. 45 g 1 Aspirin 81 [...] Pre- filled Pen Syringe Dosing Unit 5 cyclobenzaprine (FLEXERIL) [...] 500 mg by mouth daily. Glucose Blood (Agencyport SoftwareIO) STRP Use up to four times a day as directed.DX:E11.9 400 Strip 3 Blood Glucose Monitoring Suppl (Roost) w/Device KIT Use up to 4 times a day E11.9 1 Kit 0 nystatin 401612 UNIT/GM cream Apply topically to affected area 2 times a day. To affacted area for two weeks. 15 g 2 Insulin Pen Needle 31G X 6 MM MISC Use with Lantus Solostar at bedtime 30 Each 3 albuterol-ipratropium (DUONEB) 2.5-0.5 MG/3ML nebulizer solution Use 1 vial in nebulizer 180 mL 0 CENTRUM SILVER PO TABS 1 tab daily 1 Tab 0 NEBULIZER KORTNEY as directed 1 0 - Discussed all this with both pt and staff. - Will continue to follow. Kenya Moreland PA-C 04/04/2019 TRANSITION EVENT: Type: SNF admission Date: April 04 documented in this encounter Plan of Treatment Upcoming Encounters Date Type Specialty Care Team Description 04/17/2019 Office Visit Family Medicine [facility]winder Carter, DO [address] [facility] [address] [phone] 05/14/2019 Nutrition Services Gastroenterology Melissa Omalley, [place] [address] [facility] [address] [phone] 06/18/2019 Office Visit Optometry Jarett Schmitt, OD [address] [place] [address] 12/31/2019 Office Visit Gynecology Obstetrics Rosaura Perez, CN [address] [facility] [address] [phone] Health Maintenance Due Date Last Done Comments [...] encounter Visit Diagnoses Diagnosis Ambulatory dysfunction- Primary Primary osteoarthritis of right knee Primary localized osteoarthrosis, lower leg Cerebral palsy, unspecified type (HCC) Fall, sequela Sprain of right ankle, unspecified ligament, subsequent encounter Type 2 diabetes mellitus with hemoglobin A1c goal of less than 7.0% (HCC) Pancytopenia (HCC) Other pancytopenia HTN, goal below 140/90 Unspecified essential hypertension THAD on CPAP Obstructive sleep apnea (adult) (pediatric) Dyslipidemia, goal LDL below 70 Other and unspecified hyperlipidemia DM type 2 with diabetic peripheral neuropathy (HCC) Type II or unspecified type diabetes mellitus with neurological manifestations, not stated as uncontrolled 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 Functional urinary incontinence Insomnia, unspecified type Recurrent major depressive disorder, in partial remission (HCC) Impaired mobility and ADLs Mechanical problems with limbs Generalized weakness Other malaise and fatigue documented in this encounter Advance Directives Documents on File Type Date Recorded Patient Laminator Hand Expl anation Advanced Directive service a kerri default Advanced Directive Advanced Directive Advanced Directive Advanced Directive Advanced Directive Advanced Directive Advanced Directive
--- OUTSIDE RECORDS SUMMARY | 2023-05-10 23:10 | External Medical Summary | Summary of Care ---
Author Name Unknown Organization [facility] Address [place] [address] Care Team Providers Care Gate Shear Operator Name Role Phone Rajwinder Carter DO Primary Care Provider Reason for Visit * Reason Comments Advice Programs to help wit h "handicap" transportation Encounter Details Date Type Department Care Team Description 03/22/2019 Telephone [facility] [address], [place] [id number] Rajwinder Carter DO [address] [place] [address] [phone] Advice (Programs to help with "handicap" t... Allergies Active Allergy Reactions Severity Noted Date Comments Penicillins Rash 02/12/2008 documented as of this encounter (statuses as of 03/27/2019) Medications Medication Sig Dispensed Refills Start Date [...] than 7.0% ([facility]) Use with Lantus Solostar at bedtime 30 Each 3 10/11/2017 Active nystatin 354469 UNIT/GM creamIndications:Can didal vulvovaginitis Apply topically to affected area 2 times a day. To affacted area for two weeks. 15 g 2 10/12/2017 Active Blood Glucose Monitoring Suppl (Ludei) w/Device KITIndications:Type 2 diabetes mellitus with hemoglobin A1c goal of less than 7.0% (HCC) Use up to 4 times a day E11.9 1 Kit 0 10/17/2017 Active Glucose Blood (Ludei) STRP Use up to four times a [...] Use with Basaglar at bedtime. 30 Each 09/21/2018 Active cyclobenzaprine (FLEXERIL) 10 MG Tablet [...] as of this encounter (statuses as of 03/27/2019) Active Problems Problem Noted Date Preop examination [...] as of this encounter (statuses as of 03/27/2019) Resolved Problems Problem Noted Date Resolved Date [...] pain 01/24/2012 01/17/2017 Genetic Sleep Disorder Research Other*[id number] 05/13/2011 04/07/2016 Obstructive sleep apnea 01/18/2011 12/27/19 [...] as of this encounter (statuses as of 03/27/2019) Immunizations Name Administration Dates Next Due HEP [...] encounter Miscellaneous Notes * Telephone Encounter - Gilma Cueva LPN - 03/27/2019 10:21 AM EDT Patients calling asking about options for transportation for patient. She has an appointment today and he feels she will be unable to get into the car. Patient began talking in the background stating she thought she could, she would like to try. I asked if they had called the number for [facility] and she had. They are waiting on paperwork to be sent to them to complete so that she can get rides through them. They are going to to attempt to come to appointment today with Dr Carter. Asking if there are any other options for transportation? * Telephone Encounter - Shahnaz Nunez OSA - 03/27/2019 10:18 AM EDT Reason for patient's call: needing advise on how to get to appointment Caller was transferred to Gilma at the dedicated phone nurse line. * Telephone Encounter - Michaelle Lindquist LPN - 03/22/2019 4:32 PM EDT Returned call to pt and gave the number to [facility]. Syed the spouse is asking where they can go to get help for money to but their own van he said he would talk that over with Gianni. * Telephone Encounter - Carrie Douglass OSA - 03/22/2019 3:44 PM EDT Patient came in and is concerned about patient's legs giving out on here and having a hard time getting in and out of their vehicle. They are wondering if they can be advised on any programs that can help with transportation of vehicles that she can drive into. Please call to advise. documented in this encounter Plan of Treatment Upcoming Encounters Date Type Specialty Care Team Description 03/27/2019 Office Visit Family Medicine [facility]winder Carter DO [address] [facility] [address] [phone] 04/11/2019 Office Visit Gastroenterology Lyssa Stout CRNP [address] [facility] [place] [address] [phone] 04/17/2019 Office Visit Family Medicine Rajwinder Carter DO [address] [facility] [place] [address] [phone] 05/14/2019 Nutrition Services Gastroenterology Melissa Omalley RDN [address] [place] [address] [phone] 06/18/2019 Office Visit Optometry Oskar Jarett Lam, OD [address] [place] [address] [phone] 12/31/2019 Office Visit Gynecology Obstetrics Rosaura Perez, CNM [address] [facility] [place] [address] [phone] Health Maintenance Due Date Last Done Comments [...] on File Type Date Recorded Patient Patient Insurance Clerk Expl anation Advanced Directive service a kerri default Advanced Directive Advanced Directive Advanced Directive Advanced Directive Advanced Directive Advanced Directive Advanced Directive
--- OUTSIDE RECORDS SUMMARY | 2023-05-10 23:10 | External Medical Summary | Summary of Care ---
Author Name Unknown Organization [place] [address] Care Team Providers Care Contract Specialist Name Role Phone Rajwinder Carter DO Primary Care Provider Encounter Details Date Type Department Care Team Description 03/11/2019 Orders Only Outcomes Research Department [address] [place] [address] Chema Baca CHRA [employer] Research Other*[id number] Allergies Active Allergy Reactions Severity Noted Date Comments Penicillins Rash 02/12/2008 documented as of this encounter (statuses as of 03/11/2019) Medications Medication Sig Dispensed Refills Start Date [...] than 7.0% ([facility]) Use with Lantus Solostar at bedtime 30 Each 3 10/11/2017 Active nystatin 091138 UNIT/GM creamIndications:Can didal vulvovaginitis Apply topically to affected area 2 times a day. To affacted area for two weeks. 15 g 2 10/12/2017 Active Blood Glucose Monitoring Suppl (ByclerTOUCH VERIO) w/Device KITIndications:Type 2 diabetes mellitus with [...] as of this encounter (statuses as of 03/11/2019) Active Problems Problem Noted Date Preop examination [...] as of this encounter (statuses as of 03/11/2019) Resolved Problems Problem Noted Date Resolved Date [...] pain 01/24/2012 01/17/2017 Genetic Sleep Disorder Research Other*[id number] 05/13/2011 04/07/2016 Obstructive sleep apnea 01/18/2011 12/27/19 [...] as of this encounter (statuses as of 03/11/2019) Immunizations Name Administration Dates Next Due HEP [...] Stout CRNP [address] [facility] [place] [address] [phone] 04/17/2019 Office Visit Family Medicine Rajwinder Carter, DO [address] [place] [address] 05/14/2019 Nutrition Services Gastroenterology Melissa Omalley RDN [address] [facility] [place] [address] 06/18/2019 Office Visit Optometry Jarett Schmitt, OD [address] [place] [address] 12/31/2019 Office Visit Gynecology Obstetrics Rosaura Perez, CNM [address] [facility] [place] [address] [phone] Scheduled Orders Name Type Priority Associated Diagnoses Orde r Schedule MYCODE SUBSEQUENT ADULT Lab Routine MyCode Research Other*[id number] Every 6 Months for 2 Occurrences starting 03/11/2019 until 03/30/2020 Health Maintenance Due Date Last Done [...] this encounter Visit Diagnoses Diagnosis MyCode Research Other*[id number] documented in this encounter Advance Directives Documents on File Type Date Recorded Patient Film Librarian Expl anation Advanced Directive service a kerri default Advanced Directive Advanced Directive Advanced Directive Advanced Directive Advanced Directive Advanced Directive Advanced Directive
--- OUTSIDE RECORDS SUMMARY | 2023-05-10 23:10 | External Medical Summary ---
Author Name Unknown Address [address] [place] [address] Phone Organization K01:[facility] [address] [id number] Laboratory Report Ordering Provider Test Date Status ZAIN DUMONT 04/05/2019 06:40:00 Final Observation Date Value Abnormality Reference Status WBC, Total 04/05/2019 15:21 3.98 Below low normal 4.00- 10.80 Final RBC 04/05/2019 15:21 3.50 Below low normal 3.85-5 .15 Final Hemoglobin 04/05/2019 15:21 10.3 Below low normal 12.0- 15.3 Final HCT 04/05/2019 15:21 34.9 Below low normal 36.0-4 5.2 Final MCV 04/05/2019 15:21 99.7 Above high normal 81.5- 97.5 Final MCH 04/05/2019 15:21 29.4 27.0-34.0 Fin al MCHC 04/05/2019 15:21 29.5 Below low normal 32.0-3 6.0 Final RDW 04/05/2019 15:21 23.1 Above high normal 11.5- 15.5 Final Platelets 04/05/2019 15:21 81 Below low normal 140-40 0 Final Performing Location [facility] [address] [facility] [address]
--- OUTSIDE RECORDS SUMMARY | 2023-05-10 23:10 | External Medical Summary | Summary of Care ---
Author Name Unknown Organization [facility] Address [place] [address] Care Team Providers Care Saw Feeder Name Role Phone Rajwinder Carter DO Primary Care Provider [phone] Reason for Visit * Reason Comments Advice Programs to help wit h "handicap" transportation Encounter Details Date Type Department Care Team Description 03/22/2019 Telephone [facility] [address], [place] [id number] Rajwinder Carter DO [address] [place] [address] [phone] Advice (Programs to help with "handicap" t... Allergies Active Allergy Reactions Severity Noted Date Comments Penicillins Rash 02/12/2008 documented as of this encounter (statuses as of 03/25/2019) Medications Medication Sig Dispensed Refills Start Date [...] ([facility]) Use with Lantus Solostar at bedtime 30 Each 3 10/11/2017 Active nystatin 127118 UNIT/GM creamIndications:Can didal vulvovaginitis Apply topically to affected area 2 times a day. To affacted area for two weeks. 15 g 2 10/12/2017 Active Blood Glucose Monitoring Suppl (Lukup Media) w/Device KITIndications:Type 2 diabetes mellitus with hemoglobin A1c goal of less than 7.0% (HCC) Use up to 4 times a day E11.9 1 Kit 0 10/17/2017 Active Glucose Blood ([employer]uk[employer]) STRP Use up to four times a [...] as of this encounter (statuses as of 03/25/2019) Active Problems Problem Noted Date Preop examination [...] as of this encounter (statuses as of 03/25/2019) Resolved Problems Problem Noted Date Resolved Date [...] pain 01/24/2012 01/17/2017 Genetic Sleep Disorder Research Other*[id number] 05/13/2011 04/07/2016 Obstructive sleep apnea 01/18/2011 12/27/19 [...] as of this encounter (statuses as of 03/25/2019) Immunizations Name Administration Dates Next Due HEP [...] to pt and gave the number to [facility]. Syed the spouse is asking where [...] Description 03/27/2019 Office Visit Family Medicine Rajwinder Carter, DO [address] [facility] [place] [address] 04/11/2019 Office Visit [facility]enterology Lyssa Stout CRNP [address] [facility] [address] [phone] 04/17/2019 Office Visit Family Medicine Rajwinder Carter, DO [address] [facility] [id number] 05/14/2019 Nutrition Services Gastroenterology Melissa Omalley, SAMANTHA [address] [place] [address] [phone] 06/18/2019 Office Visit Optometry Jarett Schmitt, OD [address] [place] [address] 12/31/2019 Office Visit Gynecology Obstetrics Rosaura Perez CNM [address] [place] [address] Health Maintenance Due Date Last Done [...] Documents on File Type Date Recorded Patient Golf Ball Trimmer Expl anation Advanced Directive service a kerri default Advanced Directive Advanced Directive Advanced Directive Advanced Directive Advanced Directive Advanced Directive Advanced Directive
--- OUTSIDE RECORDS SUMMARY | 2023-05-10 23:10 | External Medical Summary | Summary of Care ---
Author Name Unknown Organization [facility] [place] [address] Care Team Providers Care Cellar Packer Name Role Phone Rajwinder Carter DO Primary Care Provider [phone] Encounter Details Date Type Department Care Team [...] less than 7.0% ([facility]) Use with Lantus Solostar at bedtime 30 Each 3 10/11/2017 Active nystatin 367714 UNIT/GM creamIndications:Can didal vulvovaginitis Apply topically to [...] pain 01/24/2012 01/17/2017 Genetic Sleep Disorder Research Other*[id number] 05/13/2011 04/07/2016 Obstructive sleep apnea 01/18/2011 12/27/19 [...] [facility] [place] [address] [phone] 04/17/2019 Office Visit Family Medicine Rajwinder Carter DO [address] [place], [place] [phone] 05/14/2019 Nutrition Services Gastroenterology Melissa Omalley, [place]ANTH[place] [address] [facility] [place] [address] [phone] 06/18/2019 Office Visit Optometry Jarett Schmitt, OD [address] [place] [address] 12/31/2019 Office Visit Gynecology Obstetrics Rosaura Perez CNM [address] [facility] [place] [address] [phone] Health Maintenance Due Date Last Done Comments [...] on File Type Date Recorded 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
--- OUTSIDE RECORDS SUMMARY | 2023-05-10 23:10 | External Medical Summary | Summary of Care ---
Author Name Unknown Organization [place] [address] Care Team Providers Care Appliance Installer Name Role Phone Rajwinder Lara DO Primary Care Provider [phone] Reason for Visit * Reason Comments eRx-Medication Refill Encounter Details Date Type Department Care Team Description 03/21/2019 Refill [place] [address] [place] [address] Rajwinder Lara DO [address] [place] [address] [phone] Allergies Active Allergy Reactions Severity Noted Date Comments Penicillins Rash 02/12/2008 documented as of this encounter (statuses as of 03/22/2019) Medications Medication Sig Dispensed Refills Start Date End Date Status NEBULIZER DEVIIndications:Sle ep apnea,Other dyspnea and respiratory abnormality,Other specified infantile cerebral palsy as directed 1 0 8 Active CENTRUM SILVER PO TABS 1 tab daily 1 Tab 0 2 Active albuterol-ipratropi um (DUONEB) 2.5-0.5 MG/3ML nebulizer solutionIndications :Asthma exacerbation Use 1 vial in nebulizer 180 mL 0 8 Active Insulin Pen Needle 31G X 6 MM MISCIndications:Typ e 2 diabetes mellitus with hemoglobin A1c goal of less than 7.0% ([facility]) Use with Lantus Solostar at bedtime 30 Each 3 8 Active nystatin 110227 UNIT/GM creamIndications:Ca ndidal vulvovaginitis Apply topically to affected area 2 times a day. To affacted area for two weeks. 15 g 2 8 Active Blood Glucose Monitoring Suppl ([employer]) w/Device KITIndications:Type 2 diabetes mellitus with hemoglobin A1c goal of less than 7.0% (HCC) Use up to 4 times a day E11.9 1 Kit 0 8 Active Glucose Blood ([place] VER[place]) STRP Use up to four times a day as directed.DX:E11 .9 400 Strip 3 8 Active vitamin c (ASCORBIC ACID) 500 MG [...] once dailly. 60 Tab 5 8 Active fexofenadine (BERNARDA) 180 MG TabletIndications:A llergic conjunctivitis of both eyes,Allergic rhinitis due to other allergic trigger, unspecified seasonality One pill by mouth once a day as needed for allergies 30 Tab 11 8 Active gabapentin (NEURONTIN) 300 MG Capsule [...] Pen Syringe Dosing Unit 5 9 Active BD PEN NEEDLE MINI U/F 31G X 5 MMIndications:Type 2 diabetes mellitus with hemoglobin A1c goal of less than 7.0% (HCC) Use with Basaglar at bedtime. 30 Each 9 Active cyclobenzaprine (FLEXERIL) 10 MG Tablet TAKE 1 TABLET ONCE DAILY AT BEDTIME 30 Tab 0 9 Active Aspirin 81 MG Tablet Take 1 Tab by mouth daily. 34 Tab 5 9 Active betamethasone dipropionate (DIPROSONE) 0.05 % creamIndications:Ce llulitis of face,Psoriasis Apply topically to affected area 2 times a day. To affected area. 45 g 1 9 Active traZODone (DESYREL) 50 MG TabletIndications:S [...] with food 60 Tab 4 9 Active nadolol (CORGARD) 20 MG Tablet TAKE 1 TABLET BY MOUTH ONCE DAILY 30 Tab 4 9 Active tamsulosin (FLOMAX) 0.4 MG Capsule TAKE 1 CAPSULE BY MOUTH ONCE DAILY 30 Cap 4 9 Active furosemide (LASIX) 20 MG TabletIndications:L ocalized edema,Venous stasis dermatitis of both lower extremities TAKE 1 TABLET BY MOUTH ONCE DAILY as needed for edema 30 Tab 5 9 Active fluticasone (FLONASE) 50 MCG/ACT nasal [...] AT BEDTIME 30 Tab 0 9 Active cyclobenzaprine (FLEXERIL) 10 MG Tablet TAKE 1 TABLET BY MOUTH AT BEDTIME 30 Tab 0 9 03/21/20 19 Discontinued documented as of this encounter (statuses as of 03/22/2019) Active Problems Problem Noted Date Preop examination [...] as of this encounter (statuses as of 03/22/2019) Resolved Problems Problem Noted Date Resolved Date [...] pain 01/24/2012 01/17/2017 Genetic Sleep Disorder Research Other*[id number] 05/13/2011 04/07/2016 Obstructive sleep apnea 01/18/2011 12/27/19 [...] as of this encounter (statuses as of 03/22/2019) Immunizations Name Administration Dates Next Due HEP [...] Telephone Encounter - Rajwinder Lara DO - 03/22/2019 12:57 PM EDT Signed Prescriptions: Disp Refills cyclobenzaprine (FLEXERIL) 10 MG Tablet 30 Tab 0 Sig: TAKE 1 TABLET BY MOUTH AT BEDTIME Authorizing Provider: RAJWINDER LARA * Telephone Encounter - Sierra Jeronimo decontamination worker - 03/22/2019 10:33 AM EDT Pending Prescriptions: Disp Refills cyclobenzaprine (FLEXERIL) 10 MG Tablet [*30 Tab 0 Sig: TAKE 1 TABLET BY MOUTH AT BEDTIME * Telephone Encounter - Sierra Jeronimo PHARM Tech - 03/22/2019 10:32 AM EDT Pending Prescriptions: Disp Refills cyclobenzaprine (FLEXERIL) 10 MG Tablet [*30 Tab 0 Sig: TAKE 1 TABLET BY MOUTH AT BEDTIME Last Office Visit: 02/21/2019 Next Office Visit: 04/17/2019 Scheduled Provider(s): Rajwinder Lara DO If no future appointments scheduled, and last appointment is greater than a year ago, please schedule patient for a follow-up appointment Last date the medication was ordered: 02/28/2019 Patient Phone Numbers Labs: Lab Results Component Value Date/Time CREAT 0.7 12/24/2018 02:36 PM POTASSIUM 4.3 12/24/2018 02:36 PM TSH 2.11 01/30/2019 12:37 PM LDLCALC 57 05/05/2016 10:19 AM LDLDIRECT 57 10/11/2017 01:18 PM ALT 21 12/24/2018 02:36 PM HGBA1C 6.1 (H) 09/21/2018 11:23 AM documented in this encounter Plan of Treatment Upcoming Encounters Date Type Specialty Care Team Description 04/11/2019 Office Visit Gastroenterology Lyssa Stout CRNP [address] [facility] [place] [address] 04/17/2019 Office Visit Family Medicine Rajwinder Lara DO [address] [place] [address] [phone] 05/14/2019 Nutrition Services Gastroenterology Melissa Omalley, RDN [address] [place] [id number] 06/18/2019 Office Visit Optometry Jarett Schmitt, OD [address] [place] [address] 12/31/2019 Office Visit Gynecology Obstetrics Rosaura Perez CNM [address] [place] [address] Health Maintenance Due Date [...] Documents on File Type Date Recorded Patient Stove Mounter Expl anation Advanced Directive service a kerri default Advanced Directive Advanced Directive Advanced Directive Advanced Directive Advanced Directive Advanced Directive Advanced Directive
--- OUTSIDE RECORDS SUMMARY | 2023-05-10 23:10 | External Medical Summary | Summary of Care ---
Author Name Unknown Organization [facility] Address [place] [address] Care Team Providers Care Disk Recordist Name Role Phone Rajwinder Carter DO Primary Care Provider [phone] Reason for Visit * Reason Comments Advice Programs to help wit h "handicap" transportation Encounter Details Date Type Department Care Team Description 03/22/2019 Telephone [facility] [address] [place], [place] [id number] Rajwinder Carter DO [address] [place] [address] [phone] Advice (Programs to help with "handicap" t... [...] of less than 7.0% ([facility]) Use with Lantus Solostar at bedtime 30 Each 3 10/11/2017 Active nystatin 052905 UNIT/GM creamIndications:Can didal vulvovaginitis Apply topically to affected area 2 times a day. To affacted area for two weeks. 15 g 2 10/12/2017 Active Blood Glucose Monitoring Suppl ([employer]) w/Device KITIndications:Type 2 diabetes mellitus with hemoglobin A1c goal of less than 7.0% (HCC) Use up to 4 times a day E11.9 1 Kit 0 10/17/2017 Active Glucose Blood ([employer]) STRP Use up to four times a [...] pain 01/24/2012 01/17/2017 Genetic Sleep Disorder Research Other*[id number] 05/13/2011 04/07/2016 Obstructive sleep apnea 01/18/2011 12/27/19 [...] encounter Miscellaneous Notes * Telephone Encounter - Shahnaz Nunez OSA - 03/27/2019 10:18 AM EDT Reason for patient's call: needing advise on how to get to appointment Caller was transferred to [place] at the dedicated phone nurse line. * Telephone Encounter - Michaelle Lindquist LPN - 03/22/2019 4:32 PM EDT Returned call to pt and gave the number to [facility]. Syed the spouse is asking where [...] Family Medicine Rajwinder Carter, DO [address] [facility] [id number] 04/11/2019 Office Visit Gastroenterology Lyssa Stout CRNP [address] [place] [address] [phone] 04/17/2019 Office Visit Family Medicine Rajwinder Carter DO [address] [facility] [id number] 05/14/2019 Nutrition Services Gastroenterology Melissa Omalley, RDN [address] [place] [address] [phone] 06/18/2019 Office Visit Optometry Jarett Schmitt, OD [address] [place], [place] [id number] 12/31/2019 Office Visit Gynecology Obstetrics Rosaura Perez CNM [address] [place] [address] [phone] Health Maintenance Due Date Last Done Comments [...] on File Type Date Recorded 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
--- OUTSIDE RECORDS SUMMARY | 2023-05-10 23:11 | External Medical Summary | Summary of Care ---
Author Name Unknown Organization [facility] Address [place] [address] Care Team Providers Care Behavior Therapist Name Role Phone Rajwinder Carter DO Primary Care Provider [phone] Reason for Visit * Reason Comments FYI Encounter Details Date Type Department Care Team Description 02/20/2019 Telephone [facility] [address] [place] [address] Rajwinder Carter DO [address] [place], [place] [id number] FYI Allergies Active Allergy Reactions Severity Noted Date Comments Penicillins Rash 02/12/2008 documented as of this encounter (statuses as of 02/20/2019) Medications Medication Sig Dispensed Refills Start Date [...] than 7.0% ([facility]) Use with Lantus Solostar at bedtime 30 Each 3 10/11/2017 Active nystatin 413311 UNIT/GM creamIndications:Can didal vulvovaginitis Apply topically to affected area 2 times a day. To affacted area for two weeks. 15 g 2 10/12/2017 Active Blood Glucose Monitoring Suppl ([employer] VERIO) w/Device KITIndications:Type 2 diabetes mellitus with hemoglobin A1c goal of less than 7.0% (HCC) Use up to 4 times a day E11.9 1 Kit 0 10/17/2017 Active Glucose Blood ([employer] CorporationTOUCH VERIO) STRP Use up to four times [...] once dailly. 60 Tab 5 05/18/2018 Active omeprazole (PRILOSEC) 20 MG CPDR Take 1 Cap by mouth daily. 30 Cap 5 05/18/2018 Active fexofenadine (BERNARDA) 180 MG TabletIndications:Al lergic conjunctivitis of both eyes,Allergic rhinitis due to other allergic trigger, unspecified seasonality One pill by mouth once a day as needed for allergies 30 Tab 11 05/18/2018 Active gabapentin (NEURONTIN) 300 MG Capsule One pill in am, one midday, two in pm, 180 Cap 5 05/18/2018 Active insulin glargine (LANTUS SOLOSTAR) 100 UNIT/ML SOPNIndications:Type 2 diabetes mellitus with hemoglobin A1c goal of less than 7.0% (HCC) Inject 24 units at bed time 5 Pre-filled Pen Syringe Dosing Unit 3 05/18/2018 Active oxybutynin (DITROPAN) 5 MG Tablet [...] ONCE DAILY 30 Cap 4 12/26/2018 Active atorvaSTATin (LIPITOR) 40 MG TabletIndications:Dy slipidemia, goal LDL below 70 TAKE 1 TABLET BY MOUTH AT BEDTIME 30 Tab 0 12/26/2018 Active furosemide (LASIX) 20 MG TabletIndications:Lo [...] EVERY NIGHT AT BEDTIME 30 Tab 0 01/25/2019 Active documented as of this encounter (statuses as of 02/20/2019) Active Problems Problem Noted Date Wheelchair dependent 12/21/2018 History of recent fall [...] as of this encounter (statuses as of 02/20/2019) Resolved Problems Problem Noted Date Resolved Date [...] pain 01/24/2012 01/17/2017 Genetic Sleep Disorder Research Other*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 Jordan and patient voiced understanding. * Telephone Encounter - Jovana Lambert RN - 02/20/2019 1:35 PM EDT Noted * Telephone Encounter - Deepali Ortiz OSA - 02/20/2019 1:26 PM EDT Pt notified. Pt attending. * Telephone Encounter - Jovana Lambert RN - 02/20/2019 12:49 PM EDT Per other encounter patient does not know about this appointment We need to call her for a pre Procedure appointmenyt that is scheduled for tomorrow But she does not know about This left a message for patient to call the office. Home Cell Voice mail not set up * Telephone Encounter - Dinorah Lowry LPN - 02/20/2019 11:[address] Jordan tomorrow. * Telephone Encounter - Shahnaz Nunez OSA - 02/20/2019 11:43 AM EDT Patient wanted to make Dr. Carter aware that her legs have been giving out on her lately and it has been causing her to fall. documented in this encounter Plan of Treatment Upcoming Encounters Date Type Specialty Care Team Description 02/21/2019 Office Visit Family Medicine Joel Jordan MD [address] [place] [address] [place] [address] [phone] 02/22/2019 Procedure Only Endoscopy Janis Hatch, [address] [place] [address] [phone] 02/22/2019 Procedure Only Endoscopy Janis Hatch, [address] [place] [address] [phone] 04/11/2019 Office Visit Gastroenterology Lyssa Stout CRNP [address] [place] [address] [phone] 04/17/2019 Office Visit Family Medicine [facility]inder Carter DO [address] [facility] [address] [phone] 05/14/2019 Nutrition Services Gastroenterology Melissa Omalley RDN [address] [place] [address] [phone] 06/18/2019 Office Visit Optometry Jarett Schmitt, OD [address] [place] [address] 12/31/2019 Office Visit Gynecology Obstetrics Rosaura Perez, CNM [address] [facility] [place] [address] [phone] Health Maintenance Due Date Last Done Comments [...] Documents on File Type Date Recorded 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
--- OUTSIDE RECORDS SUMMARY | 2023-05-10 23:11 | External Medical Summary | Summary of Care ---
Author Name Unknown Organization [place] [address] Care Team Providers Care Air Traffic Supervisor Name Role Phone Rajwinder Lara DO Primary Care Provider [phone] Reason for Visit * Reason Comments eRx-Medication Refill Encounter Details Date Type Department Care Team Description 02/22/2019 Refill [place] [address] [place] [address] Rajwinder Lara DO [address] [place] [address] [phone] Allergies Active Allergy Reactions Severity Noted Date Comments Penicillins Rash 02/12/2008 documented as of this encounter (statuses as of 02/22/2019) Medications Medication Sig Dispensed Refills Start Date [...] of less than 7.0% ([facility]) Use with Lantus Solostar at bedtime 30 Each 3 8 Active nystatin 492501 UNIT/GM creamIndications:Ca ndidal vulvovaginitis Apply topically to affected area 2 times a day. To affacted area for two weeks. 15 g 2 8 Active Blood Glucose Monitoring Suppl (F[employer]in[employer]i) w/Device KITIndications:Type 2 diabetes mellitus with hemoglobin A1c goal of less than 7.0% (HCC) Use up to 4 times a day E11.9 1 Kit 0 8 Active Glucose Blood (St[employer]OUCH VERIO) STRP Use up to four times [...] nostril daily. 1 Inhaler 5 9 Active cyclobenzaprine (FLEXERIL) 10 MG Tablet TAKE 1 TABLET BY MOUTH EVERY NIGHT AT BEDTIME 30 Tab 0 9 Active [...] ONCE DAILY 90 Cap 3 9 Active omeprazole (PRILOSEC) 20 MG CPDR Take 1 Cap by mouth daily. 30 Cap 5 8 02/23/20 19 Discontinued documented as of this encounter (statuses as of 02/22/2019) Active Problems Problem Noted Date Preop examination [...] as of this encounter (statuses as of 02/22/2019) Resolved Problems Problem Noted Date Resolved Date [...] pain 01/24/2012 01/17/2017 Genetic Sleep Disorder Research Other*[id number] 05/13/2011 04/07/2016 Obstructive sleep apnea 01/18/2011 12/27/19 [...] as of this encounter (statuses as of 02/22/2019) Immunizations Name Administration Dates Next Due HEP [...] Miscellaneous Notes * Telephone Encounter - Ramez Ibrahim [facility] - 02/22/2019 3:16 PM EDT Signed Prescriptions: Disp Refills omeprazole (PRILOSEC) 20 MG CPDR 90 Cap 3 Sig: TAKE 1 CAPSULE BYMOUTH ONCE DAILYAuthorizing Provider: RAJWINDER LARA User: RAMEZ IBRAHIM * [facility] 3:05 PM EDT Signed Prescriptions: Disp Refills omeprazole (PRILOSEC) 20 MG CPDR 90 Cap 3 Sig: TAKE 1 CAPSULE BYMOUTH ONCE DAILYAuthorizing Provider: RAJWINDER LARA User: RAMEZ IBRAHIM * Telephone Encounter - Jessica Campbell, wire drawing machine operator - 02/22/2019 11:32 AM EDT Pending Prescriptions: Disp Refills omeprazole (PRILOSEC) 20 MG CPDR [Pharmac*30 Cap 4 Sig: TAKE 1 CAPSULE BY MOUTH ONCE DAILY Last Office Visit: 02/21/2019 Next Office Visit: 04/17/2019 Scheduled Provider(s): Rajwinder Lara, DO If no future appointments scheduled, and last appointment is greater than a year ago, please schedule patient for a follow-up appointment Last date the medication was ordered: 05/18/18 Patient Phone Numbers Labs: Lab Results Component [...] Visit Gastroenterology Lyssa Stout CRNP [address] [place] [address] [phone] 04/17/2019 Office Visit Family Medicine Rajwinder Lara DO [address] [facility] [place] [id number] 05/14/2019 Nutrition Services Gastroenterology Melissa Omalley, RDN [address] [place] [address] 06/18/2019 Office Visit Optometry Jarett Schmitt, OD [address] [place] [address] 12/31/2019 Office Visit Gynecology Obstetrics Rosaura Perez CNM [address] [place] [address] [phone] Health Maintenance Due Date Last Done Comments [...] on File Type Date Recorded Patient Flame Cutting Machine Operator Helper Expl anation Advanced Directive service a kerri default Advanced Directive Advanced Directive Advanced Directive Advanced Directive Advanced Directive Advanced Directive Advanced Directive
--- OUTSIDE RECORDS SUMMARY | 2023-05-10 23:11 | External Medical Summary | Summary of Care ---
Author Name Unknown Organization [place] [address] Care Team Providers Care Private Security Guard Name Role Phone Rajwinder Lara DO Primary Care Provider [phone] Reason for Visit * Reason Comments eRx-Medication Refill Encounter Details Date Type Department Care Team Description 02/21/2019 Refill [place] [address] [place] [address] Rajwinder Lara DO [address] [place] [address] [phone] Type 2 diabetes mellitus with hemoglobin A1c goal of less than 7.0% (HCC) Allergies Active Allergy Reactions Severity Noted Date Comments Penicillins Rash 02/12/2008 documented as of this encounter (statuses as of 02/28/2019) Medications Medication Sig Dispensed Refills Start Date [...] bedtime 30 Each 3 8 Active nystatin 174981 UNIT/GM creamIndications:Ca ndidal vulvovaginitis Apply topically to affected area 2 times a day. To affacted area for two weeks. 15 g 2 8 Active Blood Glucose Monitoring Suppl (Geddit) w/Device KITIndications:Type 2 diabetes mellitus with hemoglobin A1c goal of less than 7.0% (HCC) Use up to 4 times a day E11.9 1 Kit 0 8 Active Glucose Blood (Geddit) STRP Use up to four times a [...] Basaglar at bedtime. 30 Each 11 9 Active cyclobenzaprine (FLEXERIL) 10 MG Tablet [...] AT BEDTIME 30 Tab 0 9 Active insulin glargine (LANTUS SOLOSTAR) 100 UNIT/ML SOPNIndications:Typ e 2 diabetes mellitus with hemoglobin A1c goal of less than 7.0% (HCC) INJECT 24 UNITS UNDER THE SKIN AT BED TIME 15 mL 3 9 Active omeprazole (PRILOSEC) 20 MG CPDR Take 1 Cap by mouth daily. 30 Cap 5 8 02/23/20 19 Discontinued insulin glargine (LANTUS SOLOSTAR) 100 UNIT/ML SOPNIndications:Typ e 2 diabetes mellitus with hemoglobin A1c goal of less than 7.0% (HCC) Inject 24 units at bed time 5 Pre-filled Pen Syringe Dosing Unit 3 8 02/22/20 19 Discontinued atorvaSTATin (LIPITOR) 40 MG TabletIndications:D yslipidemia, goal LDL below 70 TAKE 1 TABLET BY MOUTH AT BEDTIME 30 Tab 0 9 02/22/20 19 Discontinued cyclobenzaprine (FLEXERIL) 10 MG Tablet TAKE 1 TABLET BY MOUTH EVERY NIGHT AT BEDTIME 30 Tab 0 9 02/22/20 19 Discontinued documented as of this encounter (statuses as of 02/28/2019) Active Problems Problem Noted Date Preop examination [...] as of this encounter (statuses as of 02/28/2019) Resolved Problems Problem Noted Date Resolved Date [...] pain 01/24/2012 01/17/2017 Genetic Sleep Disorder Research Other*[id number] 05/13/2011 04/07/2016 Obstructive sleep apnea 01/18/2011 12/27/19 [...] as of this encounter (statuses as of 02/28/2019) Immunizations Name Administration Dates Next Due HEP [...] Telephone Encounter - Rajwinder Lara DO - 02/28/2019 7:59 AM EDT Signed Prescriptions: Disp Refills cyclobenzaprine (FLEXERIL) 10 MG Tablet 30 Tab 0 Sig: TAKE 1 TABLET BY MOUTH AT BEDTIME Authorizing Provider: RAJWINDER LARA insulin glargine (LANTUS SOLOSTAR) 100 UNI*15 mL 3 Sig: INJECT 24 UNITS UNDER THE SKIN AT BED TIME Authorizing Provider: RAJWINDER LARA Ordering User: SOPHIA [place]TA[place] * Telephone Encounter - Jessica Campbell teller coordinator - 02/22/2019 11:33 AM EDT [facility] calling to check on status of cyclobenzaprine (FLEXERIL) 10 MG Tablet. Pt advised of 48 business hours for processing. [facility] [id number] [facility] can be reached at [phone]. Thank You, Jessica Campbell Vp [employer] Refill Call Center 02/22/2019, 11:33 AM * Telephone Encounter - Sophia Montana [facility] - 02/22/2019 9:37 AM EDT Pending Prescriptions: Disp Refills cyclobenzaprine (FLEXERIL) 10 MG Tablet [*30 Tab 0 Sig: TAKE 1 TABLET BY MOUTH AT BEDTIME Signed Prescriptions: Disp Refills insulin glargine (LANTUS SOLOSTAR) 100 UNI*15 mL 3 Sig: INJECT 24 UNITS UNDER THE SKIN AT BED TIME Authorizing Provider: RAJWINDER LARA Ordering User: SOPHIA MONTANA - * Telephone Encounter - Sophia Montana [facility] - 02/22/2019 9:36 AM EDT Refill pharmacists currently not authorized to approve refills for this class of medication per refill protocol. Please approve if appropriate. Thank you, Sophia Montana PharmD Staff Pharmacist Refill Call Center 02/22/2019, 9:36 AM * Telephone Encounter - Sierra Jeronimo teller coordinator - 02/22/2019 9:26 AM EDT Pending Prescriptions: Disp Refills cyclobenzaprine (FLEXERIL) 10 MG Tablet [*30 Tab 0 Sig: TAKE 1 TABLET BY MOUTH AT BEDTIME insulin glargine (LANTUS SOLOSTAR) 100 UN*15 mL 1 Sig: INJECT 24 UNITS UNDER THE SKIN AT BED TIME * Telephone Encounter - Sierra Jeronimo teller coordinator - 02/22/2019 9:25 AM EDT Please forward cyclobenzaprine (FLEXERIL) 10 MG Tablet to PCP for review. Pending Prescriptions: Disp Refills cyclobenzaprine (FLEXERIL) 10 MG Tablet [*30 Tab 0 Sig: TAKE 1 TABLET BY MOUTH AT BEDTIME insulin glargine (LANTUS SOLOSTAR) 100 UN*15 mL 1 Sig: INJECT 24 UNITS UNDER THE SKIN AT BED TIME Last Office Visit: 02/21/2019 Next Office Visit: 04/17/2019 Scheduled Provider(s): Rajwinder Lara, DO If no future appointments scheduled, and last appointment is greater than a year ago, please schedule patient for a follow-up appointment Last date the medication was ordered: 01/25/2019, 05/18/2018 Patient Phone Numbers Labs: Lab Results Component [...] Gastroenterology Lyssa Stout CRNP [address] [place] [address] [phone] 04/17/2019 Office Visit Family Medicine Rajwinder Lara, DO [address] [place] [address] 05/14/2019 Nutrition Services Gastroenterology Melissa Omalley, RDShae [address] [place] [address] [facility] [place] [address] [phone] 06/18/2019 Office Visit Optometry Jarett Schmitt, OD [address] [place], [place] [id number] 12/31/2019 Office Visit Gynecology Obstetrics Rosaura Perez CNM [address] [place] [address] [phone] Health Maintenance Due Date Last Done Comments [...] on File Type Date Recorded Patient Multi Disciplined Language Analyst Expl anation Advanced Directive service a kerri default Advanced Directive Advanced Directive Advanced Directive Advanced Directive Advanced Directive Advanced Directive Advanced Directive
--- OUTSIDE RECORDS SUMMARY | 2023-05-10 23:11 | External Medical Summary | Summary of Care ---
Author Name Unknown Organization [facility] Address [place] [address] Care Team Providers Care Migratory Worker Name Role Phone Rajwinder Carter Primary Care Provider [phone] Encounter Details Date Type Department Care Team Description 02/22/2019 Orders Only [facility], [facility] [place] [address] Janis Hatch DO [address] [facility] [place] [address] [phone] Allergies Active Allergy Reactions Severity Noted Date [...] less than 7.0% ([facility]) Use with Lantus Solostar at bedtime 30 Each 3 10/11/2017 Active nystatin 197189 UNIT/GM creamIndications:Can didal vulvovaginitis Apply topically to affected area 2 times a day. To affacted area for two weeks. 15 g 2 10/12/2017 Active Blood Glucose Monitoring Suppl (luma-idTOUCH VERIO) w/Device KITIndications:Type 2 diabetes mellitus with hemoglobin A1c goal of less than 7.0% (HCC) Use up to 4 times a day E11.9 1 Kit 0 10/17/2017 Active Glucose Blood (luma-idTOUCH VERIO) STRP Use up to four times [...] AT BEDTIME 30 Tab 0 01/25/2019 Active atorvaSTATin (LIPITOR) 40 MG TabletIndications:Dy slipidemia, goal LDL below 70 TAKE 1 TABLET BY MOUTH AT BEDTIME 90 Tab 1 02/22/2019 Active insulin glargine (LANTUS SOLOSTAR) 100 UNIT/ML SOPNIndications:Type 2 diabetes mellitus with hemoglobin A1c goal of less than 7.0% (HCC) INJECT 24 UNITS UNDER THE SKIN AT BED TIME 15 mL 3 02/22/2019 Active documented as of this [...] pain 01/24/2012 01/17/2017 Genetic Sleep Disorder Research Other*[id number] 05/13/2011 04/07/2016 Obstructive sleep apnea 01/18/2011 12/27/19 [...] Office Visit Gastroenterology Lyssa Stout CRNP [address] [place] [address] 04/17/2019 Office Visit Family Medicine Rajwinder Carter DO [address] [place] [address] 05/14/2019 Nutrition Services Gastroenterology Melissa Omalley RDN [address] [facility] [id number] 06/18/2019 Office Visit Optometry Jarett Schmitt, OD [address] [place] [address] [phone] 12/31/2019 Office Visit Gynecology Obstetrics Rosaura Perez, CNM [address] [place] [address] [phone] Health Maintenance Due Date Last Done Comments [...] Name Priority Date/Time Associated Diagnosis Comments UPPER ENDOSCOPIC U/S 02/22/2019 documented in this encounter Results * UPPER ENDOSCOPIC U/S (02/22/2019) Specimen Narrative Performed At documented in this encounter Advance Directives Documents on File Type Date Recorded Patient Customer Assistance Associate Expl anation Advanced Directive service a kerri default Advanced Directive Advanced Directive Advanced Directive Advanced Directive Advanced Directive Advanced Directive Advanced Directive
--- OUTSIDE RECORDS SUMMARY | 2023-05-10 23:11 | External Medical Summary | Summary of Care ---
Author Name Unknown Organization [facility] Address [place] [address] Care Team Providers Care Cart Pusher Name Role Phone Rajwinder Carter Primary Care Provider [phone] Encounter Details Date Type Department Care Team Description 02/22/2019 Orders Only [facility], [facility] [place] [address] Janis Hatch DO [address] [facility] [place] [address] [phone] Allergies Active Allergy Reactions Severity Noted Date [...] bedtime 30 Each 3 10/11/2017 Active nystatin 807542 UNIT/GM creamIndications:Can didal vulvovaginitis Apply topically to affected area 2 times a day. To affacted area for two weeks. 15 g 2 10/12/2017 Active Blood Glucose Monitoring Suppl (Black coinTOUCH VERIO) w/Device KITIndications:Type 2 diabetes mellitus with hemoglobin A1c goal of less than 7.0% (HCC) Use up to 4 times a day E11.9 1 Kit 0 10/17/2017 Active Glucose Blood (Black coinTOUCH VERIO) STRP Use up to four times [...] pain 01/24/2012 01/17/2017 Genetic Sleep Disorder Research Other*[id number] 05/13/2011 04/07/2016 Obstructive sleep apnea 01/18/2011 12/27/19 [...] Office Visit Gastroenterology Lyssa Stout CRNP [address] [place] [address] 04/17/2019 Office Visit Family Medicine Rajwinder Carter DO [address] [place] [address] 05/14/2019 Nutrition Services Gastroenterology Melissa Omalley RDN [address] [facility] [id number] 06/18/2019 Office Visit Optometry Jarett Schmitt, OD [address] [place] [address] [phone] 12/31/2019 Office Visit Gynecology Obstetrics Rosaura Perez, CNM [address] [place] [address] [phone] Health Maintenance Due Date Last Done Comments [...] Date/Time Associated Diagnosis Comments UPPER GI ENDOSCOPY 02/22/2019 documented in this encounter Results * UPPER GI ENDOSCOPY (02/22/2019) Specimen Narrative Performed At documented in this encounter Advance Directives Documents on File Type Date Recorded Patient Window Cutter Expl anation Advanced Directive service a kerri default Advanced Directive Advanced Directive Advanced Directive Advanced Directive Advanced Directive Advanced Directive Advanced Directive
--- OUTSIDE RECORDS SUMMARY | 2023-05-10 23:11 | External Medical Summary | Summary of Care ---
Author Name Unknown Organization [place] [address] Care Team Providers Care [employer] Officer Name Role Phone Rajwinder Carter Primary Care Provider [phone] Reason for Visit * Reason Comments pre-op exam Encounter Details Date Type Department Care Team Description 02/21/2019 Office Visit [address] [address] Joel Jordan MD [address] [place] [address] [place] [address] Preop examination*; Secondary esophageal varices with bleeding (HCC); Type 2 diabetes mellitus with hemoglobin A1c goal of less than 7.0% (HCC); Cirrhosis of liver without ascites, unspecified hepatic cirrhosis type (HCC); NG (nonalcoholic steatohepatitis); Cerebral palsy, unspecified type (HCC); THAD on CPAP; Chronic pain syndrome; Intermittent asthma with reliever use up to twice per week without complication; Acquired hypothyroidism; Obesity, morbid (more than 100 lbs over ideal weight or BMI > 40) (HCC); Restrictive lung disease; Cerebral palsy (HCC); Esophageal varices without bleeding, unspecified esophageal varices type (HCC); BMI 50.0-59.9, adult (HCC); Pancytopenia (HCC) Allergies Active Allergy Reactions Severity Noted Date Comments Penicillins Rash 02/12/2008 documented as of this encounter (statuses as of 02/21/2019) Medications Medication Sig Dispensed Refills Start Date [...] bedtime 30 Each 3 10/11/2017 Active nystatin 206200 UNIT/GM creamIndications:Can didal vulvovaginitis Apply topically to affected area 2 times a day. To affacted area for two weeks. 15 g 2 10/12/2017 Active Blood Glucose Monitoring Suppl ([employer]) w/Device KITIndications:Type 2 diabetes mellitus with hemoglobin A1c goal of less than 7.0% (HCC) Use up to 4 times a day E11.9 1 Kit 0 10/17/2017 Active Glucose Blood ([employer]) STRP Use up to four times a [...] as of this encounter (statuses as of 02/21/2019) Active Problems Problem Noted Date Preop examination [...] as of this encounter (statuses as of 02/21/2019) Resolved Problems Problem Noted Date Resolved Date [...] pain 01/24/2012 01/17/2017 Genetic Sleep Disorder Research Other*[id number] 05/13/2011 04/07/2016 Obstructive sleep apnea 01/18/2011 12/27/19 [...] as of this encounter (statuses as of 02/21/2019) Immunizations Name Administration Dates Next Due HEP [...] Reading Time Taken Comments Blood Pressure 122/70 02/21/2019 2:34 PM EDT Pulse 70 02/21/2019 2:34 PM EDT Temperature 37.1 C (98.7 F) 02/21/2019 2:34 PM ED T Respiratory Rate 18 02/21/2019 2:34 PM EDT Oxygen Saturation - - Inhaled Oxygen Concentration - - Weight - - Height - - Body Mass Index - - documented in this encounter Progress Notes * Joel Jordan MD - 02/21/2019 3:03 PM EDT Subjective: Shaina Bustos is a 63 year old female Chief Complaint Patient presents with pre-op exam HPI: Shaina Bustos is a 63 year old female who presents with a chief complaint of pre- op exam 63 year old female for a PE prior to a planned EGD to be done by Janis Hatch DO at [facility] to evaluate esophageal varices, iron defiency anemia, and apparent GI bleeding with portal hypertension, NG with cirrhosis of the liver, sleep apnea, dyslipidemia, cerebral palsy, morbid obesity, NIDDM on medications, spinal stenosis, iron deficiency anemia and spinal stenosis. There is no history of coronary artery disease. States she feels fine today, tired and states she needs a nap Medications reviewed and list is updated. A current list of medications provided to the patient A previous EGD was done 6 months ago Recent lab Component Latest Ref Rng & Units 12/24/2018 01/11/2019 01/30/2019 BUN 6 - 20 mg/dL 13 CREATININE 0.5 - 1.0 mg/dL 0.7 E GLOM FILT RATE >60 >60.0 SODIUM 135 - 146 mmol/L 145 POTASSIUM 3.5 - 5.1 mmol/L 4.3 CHLORIDE 98 - 107 mmol/L 105 CO2 22 - 32 mmol/L 29 ANION GAP 7 - 15 mmol/L 11 GLUCOSE 70 - 120 mg/dL 118 ALBUMIN 3.8 - 5.0 g/dL 4.1 AST 10 - 35 U/L 29 ALKALINE PHOSPHATASE 0 - 153 U/L 105 BILIRUBIN 0 - 1.2 mg/dL 0.4 CALCIUM 8.4 - 10.2 mg/dL 9.1 PROTEIN 6.0 - 8.3 g/dL 6.9 ALT 10 - 35 U/L 21 ALBUMIN, RD URINE mg/dL <1.20 CREATININE, RD URINE mg/dL 115 MICROALBUMIN RATIO <30 mg/g creat <10 TSH 0.27 - 4.2 uIU/mL 2.11 FREE T4 REFLEXIVE 0.9 - 1.7 ng/dL NOT APPLICABLE FERRITIN 13 - 150 ng/mL 9.3 (L) 13.2 FOLIC ACID >4.5 ng/mL >20.0 VITAMIN B12 232 - 1,245 pg/mL 537 WBC 4.00 - 10.80 K/uL 3.93 (L) 3.80 (L) RBC 3.85 - 5.15 M/uL 3.21 (L) 3.32 (L) HGB 12.0 - 15.3 g/dL 8.7 (L) 8.7 (L) HCT 36.0 - 45.2 % 28.6 (L) 29.6 (L) MCV 81.5 - 97.5 fL 89.1 89.2 MCH 27.0 - 34.0 pg 27.1 26.2 (L) MCHC 32.0 - 36.0 g/dL 30.4 (L) 29.4 (L) RDW 11.5 - 15.5 % 16.5 (H) 18.2 (H) PLATELET COUNT 140 - 400 K/uL 96 (L) 98 (L) MPV 6.6 - 11.1 fL 11.8 (H) 14.4 (H) NEUTS 40 - 75 % 57.0 55.8 LYMPHS 18 - 42 % 25.7 24.7 MONOS 1 - 11 % 9.9 10.0 EOS 0 - 6 % 6.9 (H) 8.2 (H) BASOS 0 - 2 % 0.5 0.8 IMMATURE GRANULOCYTE 0 - 2 % 0.5 ABS. NEUTS 1.8 - 7.7 K/uL 2.24 2.12 ABS. LYMPHS 1.0 - 4.8 K/uL 1.01 0.94 (L) ABS. MONOS 0.0 - 1.1 K/uL 0.39 0.38 ABS. EOS 0.0 - 0.7 K/uL 0.27 0.31 ABS. BASOS 0.0 - 0.2 K/uL 0.02 0.03 ABSOLUTE IMMATURE GRANULOCYTES 0.0 - 0.2 K/uL 0.02 IRON 33 - 151 ug/dL 34 55 IRON BINDING CAP 250 - 425 ug/dL 410 413 TRANSFERRIN SAT % 15 - 55 % 8 (L) 13 (L) EKG Report [id number] 07/11/2018 11:09 AM Carlos Caceres DO Signed by Carlos Caceres DO on 07/12/18 at 0934 Clear all REASON FOR STUDY: chest pain CONCLUSIONS: Sinus rhythm with 1st degree AV block Low voltage QRS, consider pulmonary disease, pericardial effusion, or normal variant Inferior infarct (cited on or before 24-JUN-2010) Abnormal ECG When compared with ECG of 28-MAR-2017 13:43, CO interval has increased Ventricular Rate: 73 Atrial Rate: 73 CO Interval: 222 QRS Duration: 92 QT/QTc: 398/438 ms P-R-T Hood: 14 : -29 : 31 degrees Patient Active Problem List Diagnosis Code Spinal stenosis of lumbar region without neurogenic claudication M48.061 Cerebral palsy ([facility]) G80.9 HTN, goal below 140/90 I10 Chronic rhinitis J31.0 NG (nonalcoholic steatohepatitis) K75.81 Stasis dermatitis I87.2 DDD (degenerative disc disease), lumbar M51.36 Intermittent asthma with reliever use up to twice per week J45.20 Lymphedema I89.0 Type 2 diabetes mellitus with hemoglobin A1c goal of less than 7.0% ([facility]) E11.9 Vitamin D deficiency E55.9 Restrictive lung disease J98.4 Obesity, morbid (more than 100 lbs over ideal weight or BMI > 40) ([facility]) E66.01 Dyslipidemia, goal LDL below 70 E78.5 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 R39.81 Acquired hypothyroidism E03.9 Chronic pain syndrome G89.4 MEDICATION USE AGREEMENT [id number] History of Clostridium difficile colitis Z86.19 Cirrhosis of liver ([facility]) K74.60 THAD on CPAP G47.33, Z99.89 Wheelchair dependent Z99.3 History of recent fall Z91.81 Preop examination Z01.818 Pancytopenia (HCC) D61.818 Current Outpatient Medications Medication Sig Dispense Refill cyclobenzaprine (FLEXERIL) 10 MG Tablet TAKE 1 TABLET BY MOUTH EVERY NIGHT AT BEDTIME 30 Tab 0 fluticasone (FLONASE) 50 MCG/ACT nasal spray Administer 2 Sprays into each nostril daily. 1 Inhaler5 atorvaSTATin (LIPITOR) 40 MG Tablet TAKE 1 [...] midday, two in pm, 180 Cap 5 insulin glargine (LANTUS SOLOSTAR) 100 UNIT/ML SOPN Inject 24 units at bed time 5 Pre-filled Pen Syringe Dosing Unit 3 levothyroxine (LEVOXYL) 150 MCG Tablet Take 1 Tab by mouth daily. (at least 30 min prior to breakfast or other meds) 30 Tab 11 omeprazole (PRILOSEC) 20 MG CPDR Take 1 Cap by mouth daily. 30 Cap 5 potassium chloride ER 10 MEQ TBCR With food. Pt reports only taking once dailly. 60 Tab 5 vitamin c (ASCORBIC ACID) 500 MG Tablet Take 500 mg by mouth daily. Glucose Blood ([employer]) STRP Use up to four times a day as directed.DX:E11.9 400 Strip 3 Blood Glucose Monitoring Suppl ([employer]TOUCH VERIO) w/Device KIT Use up to 4 times a day E11.9 1 Kit 0 nystatin 394594 UNIT/GM cream Apply topically to affected area [...] 0 NEBULIZER KORTNEY as directed 1 0 Review of patient's allergies indicates: Allergen Reactions Pcn [Penicillins] Rash Past Medical History: Diagnosis Date Chronic pain [...] bx, repeat 10 yrs/[facility] DENTAL SURGERY PROCEDURE NEC wisdom teeth x 4 DILATION AND CURETTAGE (D&C) EGD, FLEXIBLE, DIAGNOSTIC 10/04/2016 gastritis/[facility] EGD, FLEXIBLE, DIAGNOSTIC 01/11/2018 eso varices, retained food, repeat 1 yr/[facility] PELVIS/HIP JOINT SURGERY NEC teenager aid in walking REPAIR/GRAFT ACHILLES TENDON age 40 aid in walking Objective: The patient is a 63 year old female BP 122/70 | Pulse 70 | Temp (Src) 98.7 (Tympanic) | Resp 18 | Wt (0.000kg) General: alert, no distress, well nourished, well developed, anxious, cooperative, mild distress, obese, smiling and sitting in a wheelchair Head: Normocephalic, No masses, lesions, tenderness or abnormalities Eye Exam: PERRLA, EOMI, Conjunctiva are pink and non-injected, sclera clear Ears: External ears normal, Canals clear, TM's Normal Nose: no mucosal erythema, no mucosal edema, no purulent discharge Oropharynx: no exudate, no erythema, lips, buccal mucosa, and tongue normal, mucous membranes are moist, dentition normal and crowded oropharynx Neck: supple, no adenopathy, no bruits, thyroid normal size, non-tender, without nodularity, no stridor, non-tender, neck veins flat, trachea midline Heart: regular rate & rhythm, no murmurs, no gallops and distant heart sounds noted Lungs: chest symmetric with normal AP diameter, no chest deformities noted, normal respiratory rateand rhythm, no chest wall tenderness, lungs clear to auscultation, decreased breath sounds Abdomen: abdomen soft, non-tender, obese, normal bowel sounds, no masses or organomegaly, no rebound or guarding and no bruits Extremities: less than 2 second capillary refill, no joint deformities, effusion, or inflammation, wearing support stockings with trace ankle edema Neuro Exam: alert & oriented x 3 with fluent speech, no focal motor/sensory deficits, reflexes normal and symmetric, gait not tested ASSESSMENT/PLAN: Shaina Bustos is a 63 year old female who will have an EGD at [facility]. She had multiple chronic medical problems. Her health appears optimized and while she presents increased risk for the planned anesthesia and procedure, I believe she will tolerate the anesthesia a procedure. She tolerated a similar procedure at [facility] 6 months ago. She should be monitored closely before, during and after the procedure and may be discharge at homewhen stable. Preop examination (Primary) Secondary esophageal varices with bleeding (HCC) Type 2 diabetes mellitus with hemoglobin A1c goal of less than 7.0% (HCC) Cirrhosis of liver without ascites, unspecified hepatic cirrhosis type (HCC) NG (nonalcoholic steatohepatitis) Cerebral palsy, unspecified type (HCC) THAD on CPAP Chronic pain syndrome Intermittent asthma with reliever use up to twice per week without complication Acquired hypothyroidism Obesity, morbid (more than 100 lbs over ideal weight or BMI > 40) (HCC) Restrictive lung disease Cerebral palsy (HCC) Esophageal varices without bleeding, unspecified esophageal varices type (HCC) BMI 50.0-59.9, adult (HCC) Pancytopenia (HCC) Joel Jordan MD [facility] [address] [facility] [address] * Shelli Slaughter LPN - 02/21/2019 2:36 PM EDT Chief Complaint Patient presents with pre-op exam documented in this encounter Nursing Notes * Jovana Lambert RN - 02/21/2019 4:46 PM EDT Pre procedures OV notes faxed to [phone] And [phone] documented in this encounter Plan of Treatment Upcoming Encounters Date Type Specialty Care Team Description 02/22/2019 Procedure Only Endoscopy Janis Hatch, DO [address] [facility] [place] [address] [phone] 02/22/2019 Procedure Only Endoscopy Janis Hatch, DO [address] [facility] [place] [address] [phone] 04/11/2019 Office Visit Gastroenterology Lyssa Stout CRNP [address] [facility] [place] [address] [phone] 04/17/2019 Office Visit Family Medicine Rajwinder Carter DO [address] [place] [address] [phone] 05/14/2019 Nutrition Services Gastroenterology Melissa Omalley, [place] [address] [place] [address] [phone] 06/18/2019 Office Visit Optometry Jarett Schmitt, OD [address] [place] [address] 12/31/2019 Office Visit Gynecology Obstetrics Rosaura Perez, CN [address] [facility] [place] [address] [phone] Health Maintenance Due Date Last Done Comments [...] Diagnosis Preop examination- Primary Preoperative examination, unspecified Secondary esophageal varices with bleeding (HCC) Esophageal varices with bleeding in diseases classified elsewhere Type 2 diabetes mellitus with hemoglobin A1c goal of less than 7.0% (HCC) Cirrhosis of liver without ascites, unspecified hepatic cirrhosis type (HCC) NG (nonalcoholic steatohepatitis) Other chronic nonalcoholic liver disease Cerebral palsy, unspecified type (HCC) THAD on CPAP Obstructive sleep apnea (adult) (pediatric) Chronic pain syndrome Intermittent asthma with reliever use up to twice per week without complication Acquired hypothyroidism Unspecified hypothyroidism Obesity, morbid (more than 100 lbs over ideal weight or BMI > 40) (HCC) Morbid obesity Restrictive lung disease Other diseases of lung, not elsewhere classified Esophageal varices without bleeding, unspecified esophageal varices type (HCC) BMI 50.0-59.9, adult (HCC) Body Mass Index 50.0-59.9, adult Pancytopenia (HCC) Other pancytopenia documented in this encounter Advance Directives Documents on File Type Date Recorded Patient Electric Motor Tester Expl anation Advanced Directive service a kerri default Advanced Directive Advanced Directive Advanced Directive Advanced Directive Advanced Directive Advanced Directive Advanced Directive"
--- OUTSIDE RECORDS SUMMARY | 2023-05-10 23:11 | External Medical Summary | Summary of Care ---
Author Name Unknown Organization [place] [address] Care Team Providers Care [employer] Name Role Phone JohnbrianRajwinder thacker Primary Care Provider [phone] Reason for Visit * Reason Comments eRx-Medication Refill Encounter Details Date Type Department Care Team Description 02/21/2019 Refill [facility] [address], [place] [id number] Brianne Pal PA-C [address], [place] [id number] Dyslipidemia, goal LDL below 70 Allergies Active [...] than 7.0% ([facility]) Use with Lantus Solostar at bedtime 30 Each 3 8 Active nystatin 128374 UNIT/GM creamIndications:Ca ndidal vulvovaginitis Apply topically to affected area 2 times a day. To affacted area for two weeks. 15 g 2 8 Active Blood Glucose Monitoring Suppl ([employer]) w/Device KITIndications:Type 2 diabetes mellitus with hemoglobin A1c goal of less than 7.0% ([facility]) Use up to 4 times a day E11.9 1 Kit 0 8 Active Glucose Blood ([employer]) STRP Use up to four times a [...] once dailly. 60 Tab 5 8 Active omeprazole (PRILOSEC) 20 MG CPDR Take 1 Cap by mouth daily. 30 Cap 5 8 Active fexofenadine (BERNARDA) 180 MG [...] pain 01/24/2012 01/17/2017 Genetic Sleep Disorder Research Other*[id number] 05/13/2011 04/07/2016 Obstructive sleep apnea 01/18/2011 12/27/19 [...] Miscellaneous Notes * Telephone Encounter - Aime Burroughs RPh - 02/22/2019 9:54 AM EDT Signed Prescriptions: Disp Refills atorvaSTATin (LIPITOR) 40 MG Tablet 90 Tab 1 Sig: TAKE 1 TABLET BY MOUTH AT BEDTIME Authorizing Provider: RAJWINDER LARA User: AIME BURROUGHS--------- * Telephone Encounter - Aime Burroughs [facility] - 02/22/2019 9:53 AM EDT Protocol met. Refills sent to pharmacy. Thanks, Aime Burroughs [facility] Staff Pharmacist Telepharmacy 02/22/2019,9:53 AM * Telephone Encounter - Sierra Jeronimo generator operator - 02/22/2019 9:25 AM EDT Pending Prescriptions: Disp Refills atorvaSTATin (LIPITOR) 40 MG Tablet [Phar*30 Tab 5 Sig: TAKE 1 TABLET BY MOUTH AT BEDTIME * Telephone Encounter - Sierra Jeronimo, generator operator - 02/22/2019 9:22 AM EDT Please approve the following modified prescription with added refills if appropriate. Pending Prescriptions: Disp Refills atorvaSTATin (LIPITOR) 40 MG Tablet [Phar*30 Tab 5 Sig: TAKE 1 TABLET BY MOUTH AT BEDTIME Last Office Visit: 02/21/2019 Next Office Visit: 04/17/2019 Scheduled Provider(s): Rajwinder Lara, DO If no future appointments scheduled, and last appointment is greater than a year ago, please schedule patient for a follow-up appointment Last date the medication was ordered: 12/26/2018 Patient Phone Numbers Labs: Lab Results Component Value Date/Time CREAT 0.7 12/24/2018 02:36 PM POTASSIUM 4.3 12/24/2018 02:36 PM TSH 2.11 01/30/2019 12:37 PM LDLCALC 57 05/05/2016 10:19 AM LDLDIRECT 57 10/11/2017 01:18 PM ALT 21 12/24/2018 02:36 PM HGBA1C 6.1 (H) 09/21/2018 11:23 AM Lipid Panel Results: LIPID PANEL Lucio Dt/[employer] Resulted Value Status HOURS FASTING (hours) 05/05/16 10:19A 05/05/16 12 F TRIGLYCERIDES (mg/dL) 05/05/16 10:19A 05/05/16 136 F CHOLESTEROL (mg/dL) 05/05/16 10:19A 05/05/16 122 F HDL (mg/dL) 05/05/16 10:19A 05/05/16 38* F CHOL/HDL RATIO ( ) 05/05/16 10:19A 05/05/16 3.2 F LDL (CALCULATED) (mg/dL) 05/05/16 10:19A 05/05/16 57 F LDL (DIRECT MEASURE)(mg/dL) Lucio Dt/Tm Resulted Value Status 10/11/17 1:18P 10/11/17 57 FINAL AST Results: AST(U/L) Lucio Dt/Tm Resulted Value Status 12/24/18 2:36P 12/24/18 29 FINAL 02/13/18 3:27P 02/13/18 29 FINAL 03/28/17 3:31P 03/28/17 28 FINAL ALT Results: ALT(U/L) Lucio Dt/Tm Resulted Value Status 12/24/18 2:36P 12/24/18 21 FINAL 02/13/18 3:27P 02/13/18 26 FINAL 03/28/17 3:31P 03/28/17 26 FINAL documented in this encounter Plan of Treatment Upcoming Encounters Date Type Specialty Care Team Description 02/22/2019 Procedure Only Endoscopy Janis Hatch, [address] [place] [address] [phone] Arrived 02/22/2019 Procedure Only Endoscopy Janis Hatch, [address] [place] [address] [phone] Arrived 04/11/2019 Office Visit Gastroenterology Lyssa Stout CRNP [address] [place] [address] [phone] 04/17/2019 Office Visit Family Medicine Rajwinder Lara, [address] [facility] [place] [phone] 05/14/2019 Nutrition Services Gastroenterology Melissa Omalley, RDN [address] [facility] [place] [phone] 06/18/2019 Office Visit Optometry Aime Schmitt, OD [address] [place] [address] 12/31/2019 Office Visit Gynecology Obstetrics [...] Documents on File Type Date Recorded Patient Polisher And Sander Expl anation Advanced Directive service a kerri default Advanced Directive Advanced Directive Advanced Directive Advanced Directive Advanced Directive Advanced Directive Advanced Directive
--- OUTSIDE RECORDS SUMMARY | 2023-05-10 23:11 | External Medical Summary | Summary of Care ---
Author Name Unknown Organization [facility] [place] [address] Care Team Providers Care Shipping Order Clerk Name Role Phone Rajwinder Carter DO Primary Care Provider [phone] Encounter Details Date Type Department Care Team Description 02/22/2019 Result Scan Unspecified Department <No scans attached> Allergies Active Allergy Reactions Severity Noted Date Comments Penicillins Rash 02/12/2008 documented as of this encounter (statuses as of 02/25/2019) Medications Medication Sig Dispensed Refills Start Date [...] 7.0% ([facility]) Use with Lantus Solostar at bedtime 30 Each 3 10/11/2017 Active nystatin 661412 UNIT/GM creamIndications:Can didal vulvovaginitis Apply topically to [...] as of this encounter (statuses as of 02/25/2019) Active Problems Problem Noted Date Preop examination [...] as of this encounter (statuses as of 02/25/2019) Resolved Problems Problem Noted Date Resolved Date [...] pain 01/24/2012 01/17/2017 Genetic Sleep Disorder Research Other*[id number] 05/13/2011 04/07/2016 Obstructive sleep apnea 01/18/2011 12/27/19 [...] as of this encounter (statuses as of 02/25/2019) Immunizations Name Administration Dates Next Due HEP [...] Stout CRNP [address] [facility] [place] [address] [phone] 04/17/2019 Office Visit Family Medicine Rajwinder Carter DO [address] [place], [place] [phone] 05/14/2019 Nutrition Services Gastroenterology Melissa Omalley, [place] [address] [facility] [place] [address] [phone] 06/18/2019 Office Visit Optometry Jarett Schmitt, OD [address] [place] [address] 12/31/2019 Office Visit Gynecology Obstetrics Rosaura Perez CNM [address] [facility] [place] [address] [phone] Health Maintenance Due Date Last Done Comments [...] Date/Time Associated Diagnosis Comments OUTSIDE LAB RESULTS 02/22/2019 documented in this encounter Results * OUTSIDE LAB RESULTS (02/22/2019) Specimen Narrative Performed At documented in this encounter Advance Directives Documents on File Type Date Recorded Patient Rigging Supervisor Expl anation Advanced Directive service a kerri default Advanced Directive Advanced Directive Advanced Directive Advanced Directive Advanced Directive Advanced Directive Advanced Directive
--- OUTSIDE RECORDS SUMMARY | 2023-05-10 23:11 | External Medical Summary | Summary of Care ---
Author Name Unknown Organization [facility] [address] Care Team Providers Care Founder Ceo & President Name Role Phone Rajwinder Carter DO Primary Care Provider [phone] Encounter Details Date Type Department Care Team Description 02/22/2019 Scan Encounter Unspecified Department <No scans attached> [...] 7.0% ([facility]) Use with Lantus Solostar at bedtime 30 Each 3 10/11/2017 Active nystatin 243935 UNIT/GM creamIndications:Can didal vulvovaginitis Apply topically to [...] pain 01/24/2012 01/17/2017 Genetic Sleep Disorder Research Other*[id number] 05/13/2011 04/07/2016 Obstructive sleep apnea 01/18/2011 12/27/19 [...] CRNP [address] [facility] [place] [address] [phone] 04/17/2019 Office Visit Family Medicine Rajwinder Carter DO [address] [place], [place] [phone] 05/14/2019 Nutrition Services Gastroenterology Melissa Omalley, [place] [address] [facility] [place] [address] [phone] 06/18/2019 Office Visit Optometry Jarett Schmitt, OD [address] [place] [address] 12/31/2019 Office Visit Gynecology Obstetrics Rosaura Perez CNM [address] [facility] [place] [address] [phone] Health Maintenance Due Date Last Done Comments [...] on File Type Date Recorded Patient Loan Documentation Specialist Expl anation Advanced Directive service a kerri default Advanced Directive Advanced Directive Advanced Directive Advanced Directive Advanced Directive Advanced Directive Advanced Directive
--- OUTSIDE RECORDS SUMMARY | 2023-05-10 23:11 | External Medical Summary | Summary of Care ---
Author Name Unknown Organization [place] [address] Care Team Providers Care Supervisor Rose Grading Name Role Phone Rajwinder Carter Primary Care Provider [phone] Reason for Visit * Reason Comments pre-op exam Encounter Details Date Type Department Care Team Description 02/21/2019 Office Visit [address] [address] Joel Jordan MD [address] [place] [address] [place] [address] Preop examination*; Secondary esophageal [...] bedtime 30 Each 3 10/11/2017 Active nystatin 237737 UNIT/GM creamIndications:Can didal vulvovaginitis Apply topically to affected area 2 times a day. To affacted area for two weeks. 15 g 2 10/12/2017 Active Blood Glucose Monitoring Suppl (Hello! Messenger) w/Device KITIndications:Type 2 diabetes mellitus with hemoglobin A1c goal of less than 7.0% (HCC) Use up to 4 times a day E11.9 1 Kit 0 10/17/2017 Active Glucose Blood (Hello! Messenger) STRP Use up to four times a [...] twice per week 01/09/2013 Stasis dermatitis 05/07/2012 GN (nonalcoholic steatohepatitis) 04/12 HTN, goal [...] pain 01/24/2012 01/17/2017 Genetic Sleep Disorder Research Other*[id number] 05/13/2011 04/07/2016 Obstructive sleep apnea 01/18/2011 12/27/19 [...] be done by Janis Hatch DO at [facility] to evaluate esophageal varices, iron defiency anemia, [...] % 8 (L) 13 (L) EKG Report [id number] 07/11/2018 11:09 AM Carlos Caceres DO Signed by Carlos Caceres DO on 07/12/18 at 0934 Clear all REASON FOR STUDY: chest pain CONCLUSIONS: Sinus rhythm with 1st degree AV block Low voltage QRS, consider pulmonary disease, pericardial effusion, or normal variant Inferior infarct (cited on or before 24-JUN-2010) Abnormal ECG When compared with ECG of 28-MAR-2017 13:43, TX interval has increased Ventricular Rate: 73 Atrial Rate: 73 TX Interval: 222 QRS Duration: 92 QT/QTc: 398/438 ms P-R-T [place]: 14 : -29 : 31 degrees Patient [...] Chronic pain syndrome G89.4 MEDICATION USE AGREEMENT [id number] History of Clostridium difficile colitis Z86.19 Cirrhosis [...] 500 mg by mouth daily. Glucose Blood (TrueLensUCH VERIO) STRP Use up to four times a day as directed.DX:E11.9 400 Strip 3 Blood Glucose Monitoring Suppl (KaaiTOUCH VERIO) w/Device KIT Use up to 4 times a day E11.9 1 Kit 0 nystatin 078989 UNIT/GM cream Apply topically to affected area [...] bx, repeat 10 yrs/[facility] DENTAL SURGERY PROCEDURE NEC wisdom teeth x 4 DILATION AND CURETTAGE (D&C) EGD, FLEXIBLE, DIAGNOSTIC 10/04/2016 gastritis/[facility] EGD, FLEXIBLE, DIAGNOSTIC 01/11/2018 eso varices, retained food, repeat 1 yr/[facility] PELVIS/HIP JOINT SURGERY NEC teenager [...] female who will have an EGD at [facility]. She had multiple chronic medical problems. Her health appears optimized and while she presents increased risk for the planned anesthesia and procedure, I believe she will tolerate the anesthesia a procedure. She tolerated a similar procedure at [facility] 6 months ago. She should be monitored [...] adult (HCC) Pancytopenia (HCC) Joel Jordan MD [facility] [address] [facility] [address] * Shelli Slaughter LPN - 02/21/2019 2:36 PM EDT Chief Complaint Patient presents with pre-op exam documented in this encounter Nursing Notes * Jovana Lambert RN - 02/21/2019 4:46 PM EDT Pre procedures OV notes faxed to [phone] And [phone] documented in this encounter Plan of Treatment Upcoming Encounters Date Type Specialty Care Team Description 02/22/2019 Procedure Only Endoscopy Janis Hatch, DO [address] [facility] [place] [address] [phone] 02/22/2019 Procedure Only Endoscopy Janis Hatch, DO [address] [facility] [place] [address] [phone] 04/11/2019 Office Visit Gastroenterology Lyssa Stout CRNP [address] [facility] [place] [address] [phone] 04/17/2019 Office Visit Family Medicine Rajwinder Carter DO [address] [place] [address] [phone] 05/14/2019 Nutrition Services Gastroenterology Melissa Omalley, [place] [address] [place] [address] [phone] 06/18/2019 Office Visit Optometry Jarett Schmitt, OD [address] [place] [address] 12/31/2019 Office Visit Gynecology Obstetrics Rosaura Perez, CN [address] [facility] [place] [address] [phone] Health Maintenance Due Date Last Done Comments [...] Documents on File Type Date Recorded Patient Nitro Worker Expl anation Advanced Directive service a kerri default Advanced Directive Advanced Directive Advanced Directive Advanced Directive Advanced Directive Advanced Directive Advanced Directive"
--- OUTSIDE RECORDS SUMMARY | 2023-05-10 23:12 | External Medical Summary | Summary of Care ---
Author Name Unknown Organization [place] [address] Care Team Providers Care Director Of Psychology Name Role Phone Rajwinder Carter DO Primary Care Provider [phone] Reason for Referral * Evaluate & Treat - Unlimited Visits (Within 10 days (routine)) Status Reason Specialty Diagnoses / Procedures Referred By Contact Referred To Contact Pending Review Specialty Services Required Physical Therapy Diagnoses Lymphedema Rajwinder Carter DO [address] [place] [address] Reason for Visit * Reason Comments Re-Check Encounter Details Date Type Department Care Team Description 01/09/2019 Office Visit [facility] [address] [place] [address] Rajwinder Carter DO [address], [place] [id number] Type 2 diabetes mellitus with hemoglobin A1c goal of less than 7.0% ([facility])*; DM type 2 nursing care encounter ([facility]); Sinus congestion; Lymphedema Allergies Active Allergy Reactions Severity Noted Date Comments Penicillins Rash 02/12/2008 documented as of this encounter (statuses as of 02/12/2019) Medications Medication Sig Dispensed Refills Start Date [...] bedtime 30 Each 3 8 Active nystatin 680316 UNIT/GM creamIndications:Ca ndidal vulvovaginitis Apply topically to affected area 2 times a day. To affacted area for two weeks. 15 g 2 8 Active Blood Glucose Monitoring Suppl (Feast) w/Device KITIndications:Type 2 diabetes mellitus with hemoglobin A1c goal of less than 7.0% (HCC) Use up to 4 times a day E11.9 1 Kit 0 8 Active Glucose Blood (ImageWare SystemsUCH VERButlr) STRP Use up to four times a [...] in pm, 180 Cap 5 8 Active insulin glargine (LANTUS SOLOSTAR) 100 UNIT/ML SOPNIndications:Typ e 2 diabetes mellitus with hemoglobin A1c goal of less than 7.0% (HCC) Inject 24 units at bed time 5 Pre-filled Pen Syringe Dosing Unit 3 8 Active oxybutynin (DITROPAN) 5 MG Tablet [...] ONCE DAILY 30 Cap 4 9 Active atorvaSTATin (LIPITOR) 40 MG TabletIndications:D yslipidemia, goal LDL below 70 TAKE 1 TABLET BY MOUTH AT BEDTIME 30 Tab 0 9 Active furosemide (LASIX) 20 MG TabletIndications:L ocalized edema,Venous stasis dermatitis of both lower extremities TAKE 1 TABLET BY MOUTH ONCE DAILY as needed for edema 30 Tab 5 9 Active fluticasone (FLONASE) 50 MCG/ACT nasal sprayIndications:Si nus congestion Administer 2 Sprays into each nostril daily. 1 Inhaler 5 9 Active fluticasone (FLONASE) 50 MCG/ACT nasal sprayIndications:Si nus congestion Administer 2 Sprays into each nostril daily. 1 Inhaler 5 8 01/10/20 19 Discontinued cyclobenzaprine (FLEXERIL) 10 MG Tablet TAKE 1 TABLET ONCE DAILY AT BEDTIME 30 Tab 0 9 01/25/20 19 Discontinued documented as of this encounter (statuses as of 02/12/2019) Active Problems Problem Noted Date Wheelchair dependent [...] as of this encounter (statuses as of 02/12/2019) Resolved Problems Problem Noted Date Resolved Date [...] pain 01/24/2012 01/17/2017 Genetic Sleep Disorder Research Other*[id number] 05/13/2011 04/07/2016 Obstructive sleep apnea 01/18/2011 12/27/19 [...] as of this encounter (statuses as of 02/12/2019) Immunizations Name Administration Dates Next Due HEP [...] Reading Time Taken Comments Blood Pressure 122/70 01/09/2019 1:19 PM EDT Pulse 88 01/09/2019 1:19 PM EDT Temperature 36.7 C (98 F) 01/09/2019 1:19 PM EDT Respiratory Rate 20 01/09/2019 1:19 PM EDT Oxygen Saturation - - Inhaled Oxygen Concentration - - Weight - - Height - - Body Mass Index - - documented in this encounter Patient Instructions * Patient Instructions* Jovana Lambert, UMA - 01/09/2019 1:29 PM EDT Diabetes: Keeping Feet Healthy Inspect [...] calluses yourself. Talk to your doctor or hardware press operator (a doctor who specializes in foot care) [...] the area doesnt appear to be healing. [id number] [employer], [address] [place] [address], [place] [address]. All rights reserved. This information is not intended as a substitute for professional medical care. Always follow your healthcare professional's instructions. documented in this encounter Progress Notes * Jovana Lambert RN - 01/09/2019 1:29 PM EDT Socks and Shoes Removed for Annual Diabetic Foot Screening RIGHT FOOT: No Reddened, Cracking, Or Open Areas Noted. RIGHT Dorsalis Pedis Pulse: Palpable RIGHT Posterior Tibial Pulse: Palpable RIGHT Monofilament:Patient reports feeling monofilament pressure on plantar surface of foot LEFT FOOT: No Reddened, Cracking or Open Areas Noted. LEFT Dorsalis Pedis Pulse: Palpable LEFT Posterior Tibial Pulse: Palpable LEFT Monofilament: Patient reports feeling monofilament pressure on plantar surface of foot DM Foot Exam completed today. Provider aware. Jovana Lambert RN * Rajwinder Carter DO - 01/09/2019 1:26 PM EDT SUBJECTIVE: Chief Complaint Patient presents with Re-Check HPI: Shaina Bustos is a 63 year old female who presents today for regular return. Pt was seen by GI and her anemia was worse. She was started on iron. She notes that she did pick it up and it is not causing any issue. Pt notes that her DM has been fairly well controlled. She does feel that her BG has been ok. She istolerating her medications well. She is taking a baby aspirin. Pt continues to have a caregiver come in on Monday, Monday and . She states that they are helping her with showering and other tasks at home. 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 M48.061 Cerebral palsy ([facility]) G80.9 HTN, goal below 140/90 I10 [...] Chronic pain syndrome G89.4 MEDICATION USE AGREEMENT [id number] History of Clostridium difficile colitis Z86.19 Cirrhosis of liver ([facility]) K74.60 THAD on CPAP G47.33, Z99.89 Wheelchair dependent Z99.3 History of recent fall Z91.81 Current Outpatient Medications Medication Sig Dispense Refill [...] ONCE DAILY AT BEDTIME 30 Tab 0 traZODone (DESYREL) 50 MG Tablet TAKE 1 [...] 500 mg by mouth daily. Glucose Blood (ImageWare SystemsUCH VERIO) STRP Use up to four times a day as directed.DX:E11.9 400 Strip 3 Blood Glucose Monitoring Suppl (ImageWare SystemsUCH Storypanda) w/Device KIT Use up to 4 times a day E11.9 1 Kit 0 nystatin 575228 UNIT/GM cream Apply topically to affected area 2 times a day. To affacted area for two weeks. 15 g 2 fluticasone (FLONASE) 50 MCG/ACT nasal spray Administer 2 Sprays into each nostril daily. 1 Inhaler5 Insulin Pen Needle 31G X 6 MM MISC Use with Lantus Solostar at bedtime 30 Each 3 albuterol-ipratropium (DUONEB) 2.5-0.5 MG/3ML nebulizer solution Use 1 vial in nebulizer 180 mL 0 CENTRUM SILVER PO TABS 1 tab daily 1 Tab 0 NEBULIZER KORTNEY as directed 1 0 Past Medical History: Diagnosis Date Chronic pain [...] Use Topics Alcohol use: No Comment: rare REVIEW OF SYSTEMS: Constitutional ROS: No change [...] nausea, vomiting, diarrhea, or constipation Musculoskeletal/Extremities ROS: No pain, redness or swelling on the joints Skin/Integumentary ROS: No edema, No rash and No itching OBJECTIVE: BP 122/70 | Pulse 88 | Temp (Src) 98 (Tympanic) | Resp 20 | Wt (0.000kg) PHYSICAL EXAM: General: alert, healthy and no distress Head: Normocephalic, No masses, lesions, tenderness or abnormalities Heart: regular rate & rhythm, no murmurs and no gallops Lungs: chest symmetric with normal AP diameter, no chest deformities noted, no chest wall tenderness, lungs clear to auscultation Abdomen: abdomen soft, non-tender, normal bowel sounds and no masses or organomegaly Extremities: no joint deformities, effusion, or inflammation, no edema, no cyanosis Skin: skin color, texture, turgor are normal, no rashes or significant lesions ASSESSMENT/PLAN: (E11.9) Type 2 diabetes mellitus with hemoglobin A1c goal of less than 7.0% ([facility]) (primary encounter diagnosis) Plan: Pt will continue on current regimen. Lab: 1. ALBUMIN / CREATININE RATIO, URINE (E11.9) DM type 2 nursing care encounter ([facility]) Plan: See nursing note. DIABETES FOOT EXAM (R09.81) Sinus congestion Plan: Pt will use flonase. Refill sent. Medication: 1. fluticasone (FLONASE) 50 MCG/ACT nasal spray (I89.0) Lymphedema Plan: Pt will see lanny PT for further evaluation of ongoing issues. She is requesting a specific kind of pump at home. Referral placed. Referral: 1. PHYSICAL THERAPY REFERRAL OP Follow-up: 3 months Rajwinder Carter DO documented in this encounter Nursing Notes * Jovana Lambert RN - 01/09/2019 1:19 PM EDT Here for a recheck documented in this encounter Plan of Treatment Upcoming Encounters Date Type Specialty Care Team Description 02/22/2019 Procedure Only Endoscopy Janis Hatch DO [address] [place] [address] [phone] 02/22/2019 Procedure Only Endoscopy Janis Hatch DO [address] [address] [phone] 04/11/2019 Office Visit Gastroenterology Lyssa Stout CRNP [address] [place] [address] 04/17/2019 Office Visit Family Medicine Rajwinder Carter DO [address] [place] [address] [phone] 05/14/2019 Nutrition Services Gastroenterology Melissa Omalley, RDN [address] [place] [address] [phone] 06/18/2019 Office Visit Optometry Jarett Schmitt, OD [address] [place] [address] 12/31/2019 Office Visit Gynecology Obstetrics Rosaura Perez[facility] [address] [phone] Scheduled Referrals Name Type Priority Associated Diagnoses Orde r Schedule PHYSICAL THERAPY REFERRAL OP Referral Within 10 days (routine) Lymphedema Ordered: 01/09/2019 Health Maintenance Due Date Last Done Comments [...] filedocumented as of this encounter Results * ALBUMIN / CREATININE RATIO, URINE (01/11/2019 1:29 PM EDT) ALBUMIN, RD URINE <1.20 mg/dL [facility] CREATININE, RD URINE 115 mg/dL [facility] MICROALBUMIN RATIO <10 Comment: Normal: <30 mg/g creatinine High: 30-300 mg/g creatinine Very High: >300 mg/g creatinine Nephrotic: >2200 mg/g creatinine <30 mg/g creat [facility] Specimen Performing Organization Address City/State/Zipcod e Phone Number [facility], [address] [place] [address] documented in this encounter Visit Diagnoses Diagnosis Type 2 diabetes mellitus with hemoglobin A1c goal of less than 7.0% (HCC)- Primary DM type 2 nursing care encounter (HCC) Type II or unspecified type diabetes mellitus without mention of complication, not stated as uncontrolled Sinus congestion Other diseases of nasal cavity and sinuses Lymphedema Other lymphedema documented in this encounter Advance Directives Documents on File Type Date Recorded Patient Field Training Manager Expl anation Advanced Directive service a kerri default Advanced Directive Advanced Directive Advanced Directive Advanced Directive Advanced Directive Advanced Directive Advanced Directive"
--- OUTSIDE RECORDS SUMMARY | 2023-05-10 23:12 | External Medical Summary | Summary of Care ---
Author Name Unknown Organization [facility] Address [place] [address] Care Team Providers Care Boom Worker Name Role Phone Rajwinder Carter DO Primary Care Provider [phone] Reason for Visit * Reason Comments FYI Encounter Details Date Type Department Care Team Description 02/20/2019 Telephone [facility] [address] [place] [address] Rajwinder Carter DO [address] [place], [place] [id number] FYI Allergies Active Allergy Reactions Severity Noted [...] 7.0% ([facility]) Use with Lantus Solostar at bedtime 30 Each 3 10/11/2017 Active nystatin 667996 UNIT/GM creamIndications:Can didal vulvovaginitis Apply topically to affected area 2 times a day. To affacted area for two weeks. 15 g 2 10/12/2017 Active Blood Glucose Monitoring Suppl (The Yidong MediaTOClip VERIO) w/Device KITIndications:Type 2 diabetes mellitus with hemoglobin A1c goal of less than 7.0% (HCC) Use up to 4 times a day E11.9 1 Kit 0 10/17/2017 Active Glucose Blood (The Yidong MediaTOUCH VERIO) STRP Use up to four times [...] than 7.0% ([facility]) TAKE 1 TABLET BY MOUTH [...] pain 01/24/2012 01/17/2017 Genetic Sleep Disorder Research Other*[id number] 05/13/2011 04/07/2016 Obstructive sleep apnea 01/18/2011 12/27/19 [...] Office Visit Family Medicine Joel Jordan MD [address] [place] [address] [place] [address] [phone] 02/22/2019 Procedure Only Endoscopy Janis Hatch, [address] [place] [address] [phone] 02/22/2019 Procedure Only Endoscopy Janis Hatch, [address] [place] [address] [phone] 04/11/2019 Office Visit Gastroenterology Lyssa Stout CRNP [address] [place] [address] [phone] 04/17/2019 Office Visit Family Medicine [facility]inder [facility] [address] [facility] [address] [phone] 05/14/2019 Nutrition Services Gastroenterology Melissa Omalley RDN [address] [place] [address] [phone] 06/18/2019 Office Visit Optometry Jarett Schmitt, OD [address] [place] [address] 12/31/2019 Office Visit Gynecology Obstetrics Rosaura Perez, CNM [address] [facility] [place] [address] [phone] Health Maintenance Due Date Last Done Comments [...] File Type Date Recorded Patient Inside Sales Recruiter Expl anation Advanced Directive service a kerri default Advanced Directive Advanced Directive Advanced Directive Advanced Directive Advanced Directive Advanced Directive Advanced Directive
--- OUTSIDE RECORDS SUMMARY | 2023-05-10 23:12 | External Medical Summary | Summary of Care ---
Author Name Unknown Organization [facility] Address [place] [address] Care Team Providers Care Intake Specialist Name Role Phone Rajwinder Carter DO Primary Care Provider [phone] Reason for Visit * Reason Comments pre-op exam Encounter Details Date Type Department Care Team Description 02/20/2019 Telephone [facility] [address] [place] [address] Rajwinder Carter DO [address] [place], [place] [id number] pre-op exam Allergies Active Allergy Reactions Severity Noted Date [...] ([facility]) Use with Lantus Solostar at bedtime 30 Each 3 10/11/2017 Active nystatin 935504 UNIT/GM creamIndications:Can didal vulvovaginitis Apply topically to affected area 2 times a day. To affacted area for two weeks. 15 g 2 10/12/2017 Active Blood Glucose Monitoring Suppl ([employer]) w/Device KITIndications:Type 2 diabetes mellitus with hemoglobin A1c goal of less than 7.0% (HCC) Use up to 4 times a day E11.9 1 Kit 0 10/17/2017 Active Glucose Blood (Silent Power VERMarkMonitor) STRP Use up to four times a [...] pain 01/24/2012 01/17/2017 Genetic Sleep Disorder Research Other*[id number] 05/13/2011 04/07/2016 Obstructive sleep apnea 01/18/2011 12/27/19 [...] Miscellaneous Notes * Telephone Encounter - Carrie Douglass OSA - 02/20/2019 1:04 PM EDT Left message with patient sister about appointment tomorrow. * Telephone Encounter - Jovana Lambert RN - 02/20/2019 10:45 AM EDT Called [facility] left them a message To tell them of the situation to private line * Telephone Encounter - Jovana Lambert RN - 02/20/2019 10:37 AM EDT Received a fax from [facility] patient needs Evaluate ans comment On weather patient multiple co morbid'sare medically optimized at this time Patient will likely need general anesthesia This was from [facility] fax and placed in Dr Carter box Dr Carter is off Sick this week I placed Patient on schedule for 310 Dr Jordan tomorrow At [facility] Procedure is 02/22/19Monday I called patient to tell her of the pre procedure clearance appointment left a message for patient to call the office.At home Called cell mail box is not set up Waiting to tell patient about needed appointment tomorrow documented in this encounter Plan of Treatment Upcoming Encounters Date Type Specialty Care Team Description 02/21/2019 Office Visit Family Medicine Joel Jordan MD [address] [place] [address] [place] [address] [phone] 02/22/2019 Procedure Only Endoscopy Janis Hatch, DO [address] [place] [address] [phone] 02/22/2019 Procedure Only Endoscopy Janis Hatch, DO [address] [place] [address] [phone] 04/11/2019 Office Visit Gastroenterology Lyssa Stout CRNP [address] [place] [address] 04/17/2019 Office Visit Family Medicine Rajwinder Carter, DO [address] [place] [address] [phone] 05/14/2019 Nutrition Services Gastroenterology Melissa Omalley, SAMANTHA [address] [place] [address] [phone] 06/18/2019 Office Visit Optometry Jarett Schmitt, OD [address] [place] [address] 12/31/2019 Office Visit Gynecology Obstetrics Rosaura Perez, CNM [address] [place] [address] Health Maintenance Due Date Last Done Comments [...] on File Type Date Recorded Patient Clinical Rn Expl anation Advanced Directive service a kerri default Advanced Directive Advanced Directive Advanced Directive Advanced Directive Advanced Directive Advanced Directive Advanced Directive
--- OUTSIDE RECORDS SUMMARY | 2023-05-10 23:12 | External Medical Summary | Summary of Care ---
Author Name Unknown Organization [facility] Address [place] [address] Care Team Providers Care Head Field Hockey Coach Name Role Phone Rajwinder Carter DO Primary Care Provider [phone] Reason for Visit * Reason Comments pre-op exam Encounter Details Date Type Department Care Team Description 02/20/[address] [facility] [address] [place] [address] Rajwinder Carter DO [address], [place] [id number] pre-op exam Allergies Active Allergy Reactions Severity [...] bedtime 30 Each 3 10/11/2017 Active nystatin 618158 UNIT/GM creamIndications:Can didal vulvovaginitis Apply topically to affected area 2 times a day. To affacted area for two weeks. 15 g 2 10/12/2017 Active Blood Glucose Monitoring Suppl (LawbitDocs) w/Device KITIndications:Type 2 diabetes mellitus with hemoglobin A1c goal of less than 7.0% (HCC) Use up to 4 times a day E11.9 1 Kit 0 10/17/2017 Active Glucose Blood (YouMail VERMy Team Zone) STRP Use up to four times a [...] pain 01/24/2012 01/17/2017 Genetic Sleep Disorder Research Other*[id number] 05/13/2011 04/07/2016 Obstructive sleep apnea 01/18/2011 12/27/19 [...] Encounter - Jovana Lambert RN - 02/20/2019 1:[address] [facility] Did not call back I was going to inform them Patient has an appointment for clearance at [address] * Telephone Encounter - Deepali Ortiz OSA - 02/20/2019 1:26 PM EDT Pt aware. Pt attending. * Telephone Encounter - Carrie Douglass OSA - 02/20/2019 1:04 PM EDT Left message with patient sister about appointment tomorrow. * Telephone Encounter - Jovana Lambert RN - 02/20/2019 10:[address] [facility] left them a message To tell them of the situation to private line * Telephone Encounter - Jovana Lambert RN - 02/20/2019 10:37 AM EDT Received a fax from [facility] patient needs Evaluate ans comment On weather patient multiple co morbid'sare medically optimized at this time Patient will likely need general anesthesia This was from [facility] fax and placed in Dr Carter box Dr Carter is off Sick this week I placed Patient on schedule for 310 Dr Jordan tomorrow At [facility] Procedure is 02/22/19Monday I called patient to tell her of the pre procedure clearance appointment left a message for patient to call the office.At home Called cell mail box is not set up Waiting to tell patient about needed appointment tomorrow documented in this encounter Plan of Treatment Upcoming Encounters Date Type Specialty Care Team Description 02/21/2019 Office Visit Family Medicine Jole Jordan MD [address] [place] [address] [place] [address] [phone] 02/22/2019 Procedure Only Endoscopy Janis aHtch, [address] [place] [address] [phone] 02/22/2019 Procedure Only Endoscopy Janis Hatch, [address] [place] [address] [phone] 04/11/2019 Office Visit Gastroenterology Lyssa Stout CRNP [address] [place] [address] [phone] 04/17/2019 Office Visit Family Medicine Rajwinder Carter DO [address] [place], [place] [address] [phone] 05/14/2019 Nutrition Services Gastroenterology Melissa Omalley RDN [address] [place] [address] [phone] 06/18/2019 Office Visit Optometry Jarett Schmitt, OD [address] [place] [address] [phone] 12/31/2019 Office Visit Gynecology Obstetrics Rosaura Perez, CNM [facility] [place] [address] [phone] Health Maintenance Due Date Last Done Comments [...] Documents on File Type Date Recorded Patient Restrictive Preparation Operator Expl anation Advanced Directive service a kerri default Advanced Directive Advanced Directive Advanced Directive Advanced Directive Advanced Directive Advanced Directive Advanced Directive
--- OUTSIDE RECORDS SUMMARY | 2023-05-10 23:12 | External Medical Summary | Summary of Care ---
Author Name Unknown Organization [facility] Address [place] [address] Care Team Providers Care City Designer Name Role Phone Rajwinder Carter DO Primary Care Provider [phone] Reason for Visit * Reason Comments FYI Encounter Details Date Type Department Care Team Description 02/20/2019 Telephone [facility] [address] [place] [address] Rajwinder Carter DO [address] [place], [place] [id number] FYI Allergies Active Allergy Reactions Severity Noted [...] less than 7.0% ([facility]) Use with Lantus Solostar at bedtime 30 Each 3 10/11/2017 Active nystatin 866985 UNIT/GM creamIndications:Can didal vulvovaginitis Apply topically to affected area 2 times a day. To affacted area for two weeks. 15 g 2 10/12/2017 Active Blood Glucose Monitoring Suppl (LoveSurfTOVideoPros VERIO) w/Device KITIndications:Type 2 diabetes mellitus with hemoglobin A1c goal of less than 7.0% (HCC) Use up to 4 times a day E11.9 1 Kit 0 10/17/2017 Active Glucose Blood (LoveSurfTOUCH VERIO) STRP Use up to four times [...] pain 01/24/2012 01/17/2017 Genetic Sleep Disorder Research Other*[id number] 05/13/2011 04/07/2016 Obstructive sleep apnea 01/18/2011 12/27/19 [...] Office Visit Family Medicine Joel Jordan MD [address] [place] [address] [place] [address] [phone] 02/22/2019 Procedure Only Endoscopy Janis Hatch, DO [address] [facility] [place] [address] [phone] 02/22/2019 Procedure Only Endoscopy Janis Hatch, [address] [place] [address] [phone] 04/11/2019 Office Visit Gastroenterology Lyssa Stout CRNP [address] [place] [address] [phone] 04/17/2019 Office Visit Family Medicine Rajwinder Carter, [address] [facility] [place] [address] [phone] 05/14/2019 Nutrition Services Gastroenterology Melissa Omalley, SAMANTHA [address] [place] [address] [phone] 06/18/2019 Office Visit Optometry Jarett Schmitt, OD [address] [place] [address] 12/31/2019 Office Visit Gynecology Obstetrics Rosaura Perez, CNM [address] [place] [address] [phone] Health Maintenance Due Date Last Done Comments [...] Documents on File Type Date Recorded Patient Records Associate Expl anation Advanced Directive service a kerri default Advanced Directive Advanced Directive Advanced Directive Advanced Directive Advanced Directive Advanced Directive Advanced Directive
--- OUTSIDE RECORDS SUMMARY | 2023-05-10 23:12 | External Medical Summary | Summary of Care ---
Author Name Unknown Organization [facility] Address [place] [address] Care Team Providers Care Medical Biller/Coder Name Role Phone Rajwinder Carter DO Primary Care Provider [phone] Reason for Visit * Reason Comments Forms Request Encounter Details Date Type Department Care Team Description 02/07/2019 Telephone [facility] [address] [place] [address] Rajwinder Carter DO [address] [place] [address] Forms Request Allergies Active Allergy Reactions Severity Noted Date Comments Penicillins Rash 02/12/2008 documented as of this encounter (statuses as of 02/19/2019) Medications Medication Sig Dispensed Refills Start Date [...] than 7.0% ([facility]) Use with Lantus Solostar at bedtime 30 Each 3 10/11/2017 Active nystatin 147190 UNIT/GM creamIndications:Can didal vulvovaginitis Apply topically to affected area 2 times a day. To affacted area for two weeks. 15 g 2 10/12/2017 Active Blood Glucose Monitoring Suppl (OrdoroTORockabox VERIO) w/Device KITIndications:Type 2 diabetes mellitus with hemoglobin A1c goal of less than 7.0% (HCC) Use up to 4 times a day E11.9 1 Kit 0 10/17/2017 Active Glucose Blood (OrdoroTOUCH VERIO) STRP Use up to four times [...] as of this encounter (statuses as of 02/19/2019) Active Problems Problem Noted Date Wheelchair dependent [...] as of this encounter (statuses as of 02/19/2019) Resolved Problems Problem Noted Date Resolved Date [...] pain 01/24/2012 01/17/2017 Genetic Sleep Disorder Research Other*[id number] 05/13/2011 04/07/2016 Obstructive sleep apnea 01/18/2011 12/27/19 [...] as of this encounter (statuses as of 02/19/2019) Immunizations Name Administration Dates Next Due HEP [...] Telephone Encounter - Jovana Lambert RN - 02/19/2019 4:09 PM EDT refaxed * Telephone Encounter - Rosaura Reilly OSA - 02/19/2019 3:48 PM EDT Fax was not received. Please refax to [phone] * Telephone Encounter - Jovana Lambert RN - 02/08/2019 3:58 PM EDT Faxed as requested * Telephone Encounter - Ava Fleix CPhT - 02/07/2019 8:28 AM EDT [facility] requesting pts most recent labwork be faxed to office Thank you, Ava Felix [place] Mold Maker Refill Call Center 02/07/2019, 8:29 AM documented in this encounter Plan of Treatment Upcoming Encounters Date Type Specialty Care Team Description 02/22/2019 Procedure Only Endoscopy Janis Hatch, DO [address] [place] [address] [phone] 02/22/2019 Procedure Only Endoscopy Janis Hatch, [address] [place] [address] [phone] 04/11/2019 Office Visit Gastroenterology Lyssa Stout CRNP [address] [place] [address] [phone] 04/17/2019 Office Visit Family Medicine Rajwinder Carter, [address] [place] [address] [phone] 05/14/2019 Nutrition Services Gastroenterology Melissa Omalley, RDN [address] [place], [place] [address] 06/18/2019 Office Visit Optometry Jarett Schmitt, OD [address] [place] [address] 12/31/2019 Office Visit Gynecology Obstetrics Rosaura Perez CNM [address] [place] [address] [phone] Health Maintenance Due Date Last Done Comments [...] on File Type Date Recorded Patient Maintenance Manager Expl anation Advanced Directive service a kerri default Advanced Directive Advanced Directive Advanced Directive Advanced Directive Advanced Directive Advanced Directive Advanced Directive
--- OUTSIDE RECORDS SUMMARY | 2023-05-10 23:12 | External Medical Summary | Summary of Care ---
Author Name Unknown Organization [facility] Address [place] [address] Care Team Providers Care Cribber Name Role Phone Rajwinder Carter DO Primary Care Provider [phone] Reason for Visit * Reason Comments Forms Request Encounter Details Date Type Department Care Team Description 02/07/2019 Telephone [facility] [address] [place] [address] Rajwinder Carter DO [address] [place] [address] Forms Request Allergies Active Allergy [...] than 7.0% ([facility]) Use with Lantus Solostar at bedtime 30 Each 3 10/11/2017 Active nystatin 986973 UNIT/GM creamIndications:Can didal vulvovaginitis Apply topically to affected area 2 times a day. To affacted area for two weeks. 15 g 2 10/12/2017 Active Blood Glucose Monitoring Suppl (Newco InsuranceTOPicLyf VERIO) w/Device KITIndications:Type 2 diabetes mellitus with hemoglobin A1c goal of less than 7.0% (HCC) Use up to 4 times a day E11.9 1 Kit 0 10/17/2017 Active Glucose Blood (Newco InsuranceTOUCH VERIO) STRP Use up to four times [...] than 7.0% ([facility]) TAKE 1 TABLET BY MOUTH [...] pain 01/24/2012 01/17/2017 Genetic Sleep Disorder Research Other*[id number] 05/13/2011 04/07/2016 Obstructive sleep apnea 01/18/2011 12/27/19 [...] encounter Miscellaneous Notes * Telephone Encounter - Rosaura Reilly OSA - 02/19/2019 3:48 PM EDT Fax was not received. Please refax to [phone] * Telephone Encounter - Jovana Lambert RN - 02/08/2019 3:58 PM EDT Faxed as requested * Telephone Encounter - Ava Felix CPhT - 02/07/2019 8:28 AM EDT [facility] requesting pts most recent labwork be faxed to office Thank you, Ava Felix Micropaleontologist Refill Call Center 02/07/2019, 8:29 AM documented in this encounter Plan of Treatment Upcoming Encounters Date Type Specialty Care Team Description 02/22/2019 Procedure Only Endoscopy Janis Hatch, DO [address] [place] [address] [phone] 02/22/2019 Procedure Only Endoscopy Janis Hatch, DO [address] [place] [address] [phone] 04/11/2019 Office Visit Gastroenterology Lyssa Stout CRNP [address] [place] [address] 04/17/2019 Office Visit Family Medicine Rajwinder Carter, DO [address] [facility] [place] [id number] 05/14/2019 Nutrition Services Gastroenterology Melissa Omalley, RDN [address] [place] [address] [phone] 06/18/2019 Office Visit Optometry Jarett Schmitt, OD [address] [place] [address] 12/31/2019 Office Visit Gynecology Obstetrics Rosaura Perez, CNM [address] [facility] [place] [address] Health Maintenance Due [...] Documents on File Type Date Recorded Patient Merchandising Lead Expl anation Advanced Directive service a kerri default Advanced Directive Advanced Directive Advanced Directive Advanced Directive Advanced Directive Advanced Directive Advanced Directive
--- OUTSIDE RECORDS SUMMARY | 2023-05-10 23:12 | External Medical Summary | Summary of Care ---
Author Name Unknown Organization [facility] Address [place] [address] Care Team Providers Care School Psychology Specialist Name Role Phone Rajwinder Carter DO Primary Care Provider [phone] Reason for Visit * Reason Comments FYI Encounter Details Date Type Department Care Team Description 02/20/[address] [facility] [address] [place] [address] Rajwinder Carter DO [address] [place], [place] [id number] FYI Allergies Active Allergy Reactions Severity Noted [...] bedtime 30 Each 3 10/11/2017 Active nystatin 966716 UNIT/GM creamIndications:Can didal vulvovaginitis Apply topically to affected area 2 times a day. To affacted area for two weeks. 15 g 2 10/12/2017 Active Blood Glucose Monitoring Suppl (AplicaTONewVoiceMedia VERIO) w/Device KITIndications:Type 2 diabetes mellitus with hemoglobin A1c goal of less than 7.0% (HCC) Use up to 4 times a day E11.9 1 Kit 0 10/17/2017 Active Glucose Blood (AplicaTOUCH VERIO) STRP Use up to four times [...] pain 01/24/2012 01/17/2017 Genetic Sleep Disorder Research Other*[id number] 05/13/2011 04/07/2016 Obstructive sleep apnea 01/18/2011 12/27/19 [...] Office Visit Family Medicine Joel Jordan MD [address] [place] [address] [place] [address] [phone] 02/22/2019 Procedure Only Endoscopy Janis Hatch, DO [address] [facility] [place] [address] [phone] 02/22/2019 Procedure Only Endoscopy Janis Hatch, [address] [place] [address] [phone] 04/11/2019 Office Visit Gastroenterology Lyssa Stout CRNP [address] [place] [address] [phone] 04/17/2019 Office Visit Family Medicine Rajwinder Carter, [address] [facility] [place] [address] [phone] 05/14/2019 Nutrition Services Gastroenterology Melissa Omalley, SAMANTHA [address] [place] [address] [phone] 06/18/2019 Office Visit Optometry Jarett Schmitt, OD [address] [place] [address] 12/31/2019 Office Visit Gynecology Obstetrics Rosaura Perez, CNM [address] [place] [address] [phone] Health Maintenance Due Date Last Done Comments [...] on File Type Date Recorded Patient Location Worker Expl anation Advanced Directive service a kerri default Advanced Directive Advanced Directive Advanced Directive Advanced Directive Advanced Directive Advanced Directive Advanced Directive
--- OUTSIDE RECORDS SUMMARY | 2023-05-10 23:12 | External Medical Summary | Summary of Care ---
Author Name Unknown Organization [facility] Address [place] [address] Care Team Providers Care Furniture Painter Name Role Phone Rajwinder Carter DO Primary Care Provider [phone] Reason for Visit * Reason Comments pre-op exam Encounter Details Date Type Department Care Team Description 02/20/[address] [facility] [address] [place] [address] Rajwinder Carter DO [address] [place], [place] [id number] pre-op exam Allergies Active Allergy Reactions Severity [...] than 7.0% ([facility]) Use with Lantus Solostar at bedtime 30 Each 3 10/11/2017 Active nystatin 598771 UNIT/GM creamIndications:Can didal vulvovaginitis Apply topically to affected area 2 times a day. To affacted area for two weeks. 15 g 2 10/12/2017 Active Blood Glucose Monitoring Suppl (Tapdaq) w/Device KITIndications:Type 2 diabetes mellitus with hemoglobin A1c goal of less than 7.0% (HCC) Use up to 4 times a day E11.9 1 Kit 0 10/17/2017 Active Glucose Blood (IngBoo VERCambridge Broadband Networks) STRP Use up to four times a [...] pain 01/24/2012 01/17/2017 Genetic Sleep Disorder Research Other*[id number] 05/13/2011 04/07/2016 Obstructive sleep apnea 01/18/2011 12/27/19 [...] RN - 02/20/2019 10:45 AM EDT Called [facility] left them a message To tell them of the situation to private line * Telephone Encounter - Jovana Lambert RN - 02/20/2019 10:37 AM EDT Received a fax from [facility] patient needs Evaluate ans comment On weather patient multiple co morbid'sare medically optimized at this time Patient will likely need general anesthesia This was from [facility] fax and placed in Dr Carter box Dr Carter is off Sick this week I placed Patient on schedule for 310 Dr Jordan tomorrow [facility] Procedure is 02/22/19Monday I called patient to [...] Office Visit Family Medicine Joel Jordan MD [address] [place] [address] [place] [address] [phone] 02/22/2019 Procedure Only Endoscopy Janis Hatch, DO [address] [place] [address] [phone] 02/22/2019 Procedure Only [facility]atch [facility] [place] [address] [phone] 04/11/2019 Office Visit [facility]enterology [facility] Stout [facility] [place] [address] 04/17/2019 Office Visit Family Medicine [facility]inder Carter DO [address] [facility] [address] [phone] 05/14/2019 Nutrition Services Gastroenterology Melissa Omalley RDN [address] [place] [address] [phone] 06/18/2019 Office Visit Optometry Jarett Schmitt, OD [address] [place] [address] 12/31/2019 Office Visit Gynecology Obstetrics Rosaura Perez, CNM [address] [facility] [place] [address] [phone] Health Maintenance Due Date Last Done Comments [...] Documents on File Type Date Recorded Patient Signal Manager Expl anation Advanced Directive service a kerri default Advanced Directive Advanced Directive Advanced Directive Advanced Directive Advanced Directive Advanced Directive Advanced Directive
--- OUTSIDE RECORDS SUMMARY | 2023-05-10 23:12 | External Medical Summary | Summary of Care ---
Author Name Unknown Organization [facility] Address [place] [address] Care Team Providers Care Warehouse Manager Name Role Phone Rajwinder Carter DO Primary Care Provider [phone] Reason for Visit * Reason Comments Forms Request Encounter Details Date Type Department Care Team Description 02/07/2019 Telephone [facility] [address] [place] [address] Rajwinder Carter DO [address] [place] [address] Forms Request Allergies Active Allergy [...] bedtime 30 Each 3 10/11/2017 Active nystatin 784984 UNIT/GM creamIndications:Can didal vulvovaginitis Apply topically to affected area 2 times a day. To affacted area for two weeks. 15 g 2 10/12/2017 Active Blood Glucose Monitoring Suppl (VSE EVAKUATORY ROSSIITOSquareTrade VERIO) w/Device KITIndications:Type 2 diabetes mellitus with hemoglobin A1c goal of less than 7.0% (HCC) Use up to 4 times a day E11.9 1 Kit 0 10/17/2017 Active Glucose Blood (VSE EVAKUATORY ROSSIITOUCH VERIO) STRP Use up to four times [...] pain 01/24/2012 01/17/2017 Genetic Sleep Disorder Research Other*[id number] 05/13/2011 04/07/2016 Obstructive sleep apnea 01/18/2011 12/27/19 [...] Fax was not received. Please refax to [phone] * Telephone Encounter - Jovana Lambert RN - 02/08/2019 3:58 PM EDT Faxed as requested * Telephone Encounter - Ava Felix CPhT - 02/07/2019 8:28 AM EDT [facility] requesting pts most recent labwork be faxed to office Thank you, Ava Felix Medical Sales Associate Refill Call Center 02/07/2019, 8:29 AM documented in this encounter Plan of Treatment Upcoming Encounters Date Type Specialty Care Team Description 02/22/2019 Procedure Only Endoscopy Janis Hatch, DO [address] [place] [address] [phone] 02/22/2019 Procedure Only Endoscopy Janis Hatch, DO [address] [place] [address] [phone] 04/11/2019 Office Visit Gastroenterology Lyssa Stout CRNP [address] [place] [address] 04/17/2019 Office Visit Family Medicine Rajwinder Carter, DO [address] [facility] [place] [id number] 05/14/2019 Nutrition Services Gastroenterology Melissa Omalley, RDN [address] [place] [address] [phone] 06/18/2019 Office Visit Optometry Jarett Schmitt, OD [address] [place] [address] 12/31/2019 Office Visit Gynecology Obstetrics Rosaura Perez, CNM [address] [facility] [place] [address] Health Maintenance Due Date [...] on File Type Date Recorded Patient Music Cataloguer Expl anation Advanced Directive service a kerri default Advanced Directive Advanced Directive Advanced Directive Advanced Directive Advanced Directive Advanced Directive Advanced Directive
--- OUTSIDE RECORDS SUMMARY | 2023-05-10 23:12 | External Medical Summary | Summary of Care ---
Author Name Unknown Organization [facility] Address [place] [address] Care Team Providers Care Supervisor Keymodule Assembly Name Role Phone Rajwinder Carter DO Primary Care Provider [phone] Reason for Visit * Reason Comments pre-op exam Encounter Details Date Type Department Care Team Description 02/20/2019 Telephone [facility] [address] [place] [address] Rajwinder Carter DO [address] [place], [place] [id number] pre-op exam Allergies Active Allergy Reactions Severity [...] less than 7.0% ([facility]) Use with Lantus Solostar at bedtime 30 Each 3 10/11/2017 Active nystatin 444124 UNIT/GM creamIndications:Can didal vulvovaginitis Apply topically to affected area 2 times a day. To affacted area for two weeks. 15 g 2 10/12/2017 Active Blood Glucose Monitoring Suppl ([employer] w/Device KITIndications:Type 2 diabetes mellitus with hemoglobin A1c goal of less than 7.0% (HCC) Use up to 4 times a day E11.9 1 Kit 0 10/17/2017 Active Glucose Blood ([employer]) STRP Use up to four times a [...] 04/23/2015 03/28/2017 Candidal vulvovaginitis 02/12/2015 06/07/20 16 THDA (obstructive sleep apnea) 02/09/2015 Leg weakness, bilateral [...] pain 01/24/2012 01/17/2017 Genetic Sleep Disorder Research Other*[id number] 05/13/2011 04/07/2016 Obstructive sleep apnea 01/18/2011 12/27/19 [...] RN - 02/20/2019 10:45 AM EDT Called [facility] To tell them of the situation * Telephone Encounter - Jovana Lambert RN - 02/20/2019 10:37 AM EDT Received a fax from [facility] patient needs Evaluate ans comment On weather patient multiple co morbid'sare medically optimized at this time Patient will likely need general anesthesia This was from [facility] fax and placed in Dr Carter box Dr Carter is off Sick this week I placed Patient on schedule for [address] Dr Jordan tomorrow At [facility] Procedure is 02/22/19Monday I called patient [...] Office Visit Family Medicine Joel Jordan MD [address] [place] [address] [place] [address] [phone] 02/22/2019 Procedure Only Endoscopy Janis Hatch, DO [address] [place] [address] 02/22/2019 Procedure Only Endoscopy Janis Hatch, DO [address] [place] [address] [phone] 04/11/2019 Office Visit Gastroenterology Lyssa Stout CRNP [address] [place] [address] 04/17/2019 Office Visit Family Medicine Rajwinder Carter, DO [address] [place] [address] [phone] 05/14/2019 Nutrition Services Gastroenterology Melissa Omalley, SAMANTHA [address] [facility] [place] [address] [phone] 06/18/2019 Office Visit Optometry Jarett Schmitt, OD [address] [place] [address] 12/31/2019 Office Visit Gynecology Obstetrics Rosaura Perez, CNM [address] [place] [address] Health Maintenance Due Date Last Done Comments [...] Documents on File Type Date Recorded Patient Living Advisor Expl anation Advanced Directive service a kerri default Advanced Directive Advanced Directive Advanced Directive Advanced Directive Advanced Directive Advanced Directive Advanced Directive
--- OUTSIDE RECORDS SUMMARY | 2023-05-10 23:13 | External Medical Summary | Summary of Care ---
Author Name Unknown Organization [facility] Address [place] [address] Care Team Providers Care Darklight Inspector Name Role Phone Rajwinder Carter DO Primary Care Provider Reason for Visit * Reason Comments Forms Request [facility] Encounter Details Date Type Department Care Team Description 12/27/2018 Telephone [facility] [address] [place] [address] Rajwinder Carter DO [address] [place] [address] [phone] Forms Request ([facility]) Allergies Active Allergy Reactions Severity Noted Date Comments Penicillins Rash 02/12/2008 documented as of this encounter (statuses as of 01/09/2019) Medications Medication Sig Dispensed Refills Start Date [...] bedtime 30 Each 3 10/11/2017 Active nystatin 389534 UNIT/GM creamIndications:Can didal vulvovaginitis Apply topically to affected area 2 times a day. To affacted area for two weeks. 15 g 2 10/12/2017 Active Blood Glucose Monitoring Suppl ([employer]orn VERIO) w/Device KITIndications:Type 2 diabetes mellitus with hemoglobin A1c goal of less than 7.0% (HCC) Use up to 4 times a day E11.9 1 Kit 0 10/17/2017 Active Glucose Blood ([employer] TechnologiesTOUCH VERIO) STRP Use up to four times [...] affected area. 45 g 1 11/26/2018 Active cyclobenzaprine (FLEXERIL) 10 MG Tablet TAKE 1 TABLET ONCE DAILY AT BEDTIME 30 Tab 0 11/30/2018 Active traZODone (DESYREL) 50 MG TabletIndications:Sl eep [...] for edema 30 Tab 5 12/26/2018 Active documented as of this encounter (statuses as of 01/09/2019) Active Problems Problem Noted Date Wheelchair dependent [...] as of this encounter (statuses as of 01/09/2019) Resolved Problems Problem Noted Date Resolved Date [...] pain 01/24/2012 01/17/2017 Genetic Sleep Disorder Research Other*[id number] 05/13/2011 04/07/2016 Obstructive sleep apnea 01/18/2011 12/27/19 [...] as of this encounter (statuses as of 01/09/2019) Immunizations Name Dates Previously Given Next Due HEP A - Hepatitis A (Adult > 18 yrs) 09/24/2018, 03/26/2018 Hepatitis B, 20+ yrs 09/24/2018,04/23/2018,03/26 Pneumococcal Polysaccharide PPV23 (Pneumovax) 06/01/2010 Seasonal Influenza, Quadriva lent, No Preserve, 6 Mons & Above, IM 05/16/2018,07/10/2017 Seasonal Influenza, Quadriva lent, No Preserve, IM 06/07/2016 Seasonal Influenza, Trivalen t, with Preserve, 3yr & Above, Split 05/22/2015,05/29/2014,07/25/2013,,06/02/2011,06/01/2010,05/13,08/18/2008 05/22/2016 TDAP (age 10 and older)(Boostrix) 05/01/2017 05/01/2027 TDAP (age 11 and older)(Adacel) 05/26/2008 Varicella Zoster Vaccine (Adult) 12/09/2015 documented as of this encounter Social History Tobacco Use Types Packs/Day Years Used Date Never Smoker Smokeless Tobacco: Never Used Alcohol Use Drinks/Week oz/Week Comments No rare Sex Assigned at Date Recorded Not on file Job Start Date Occupation Industry Not on file Not on file Not on file Travel History Travel Start Travel End documented as of this encounter Miscellaneous Notes * Telephone Encounter - Rajwinder Carter DO - 01/09/2019 2:46 PM EDT Given to pt at visit today. * Telephone Encounter - Dulce Call OSA - 12/27/2018 3:19 PM EDT Form in Dr Carter File Bin. Call When done documented in this encounter Plan of Treatment Upcoming Encounters Date Type Specialty Care Team Description 02/05/2019 Nutrition Services Gastroenterology Melissa Omalley RDN [address] [place] [address] 02/22/2019 Procedure Only Endoscopy Janis Hatch DO [address] [facility] [place] [address] 02/22/2019 Procedure Only Endoscopy Janis Hatch, DO [address] [facility] [address] 03/25/2019 Office Visit Gastroenterology Lyssa Stout CRNP [address] [facility] [place], [place] [address] 04/17/2019 Office Visit Family Medicine Rajwinder Carter, DO [address] [facility], [place] [address] [phone] 06/18/2019 Office Visit Optometry Jarett Schmitt, OD [address] [place] [address] 12/31/2019 Office Visit Gynecology Obstetrics Rosaura Perez, CN [address] [facility] [place], [place] [address] Health Maintenance Due Date Last Done Comments DIABETES-FOOT EXAM 12/26/2018 12/26/2017, 0 03/22/2017, 06/07/2016, Additional history exists DIABETES-HGBA1C EVERY 6 MONTHS 03/21/2019 09/21/2018, 02/13/2018, 10/11/2017, Additional history exists BREAST CANCER SCREENING DISCUSSION YEARLY AGES 40-75 04/04/2019 04/04/2018, 01/18/2017, 01/17/2017 (Discussed), Additional history exists DIABETES-EYE EXAM 06/12/2019 06/12/2018, , 06/12/2018, Additional history exists DIABETES-URINE MICROALBUMIN EVERY 12 MONTHS 08/24/2019 08/24/2018, 07/19/2018, 06/16/2018, Additional history exists PAP SMEAR-EVERY 3 YRS,AGES 21-65 10/10/2019 10/10/2016, 07/02/2014, 04/16/2013, Additional history exists Yearly B-12 12/25/2019 12/24/2018, 02/13/2018 DTaP,Tdap,and Td Vaccines (3 - Td) 05/01/2027 05/01/2017, 05/26/2008 PNEUMOCOCCAL 19-64 MEDIUM RISK Completed 06/01/2010 Influenza Vaccine (FLU shot) Completed 01/2018, 07/10/2017, 06/07/2016, Additional history exists MENINGOCOCCAL (MENACTRA) Aged Out No longer eligible based on patient's age to complete this topic documented as of this encounter Implants Not on filedocumented as of this encounter Advance Directives Patient has advance care planning documents on file. For more information, please contact: [place] [phone]
--- OUTSIDE RECORDS SUMMARY | 2023-05-10 23:13 | External Medical Summary ---
Author Name Unknown Address [facility] [address] [id number] Phone Organization K01:[facility] [address] [id number] Laboratory Report Ordering Provider Test Date Status VALENTINE GUSMANHON CRESPO 01/30/2019 12:37:00 Final Observation Date Value Abnormality Reference Status Iron 01/30/2019 22:11 55 33-151 Fin al Iron-binding capacity 01/30/2019 22:11 413 2 50-425 Final Transferrin Sat % 01/30/2019 22:11 13 Below low nitesh l 15-55 Final Performing Location [facility] [address] [facility] [address]
--- OUTSIDE RECORDS SUMMARY | 2023-05-10 23:13 | External Medical Summary ---
Author Name Unknown Address [address] [place] [address] Phone Organization K01:[facility] [address] [id number] Laboratory Report Ordering Provider Test Date Status ODESSA GUSMAN 01/30/2019 12:37:00 Final Observation Date Value Abnormality Reference Status Ferritin 01/30/2019 22:47 13.2 13-150 Fin al Performing Location [place] [address] [address] [facility] [address]
--- OUTSIDE RECORDS SUMMARY | 2023-05-10 23:13 | External Medical Summary | Summary of Care ---
Author Name Unknown Organization [facility] Address [place] [address] Care Team Providers Care Librarian Special Collections Name Role Phone Rajwinder Carter DO Primary Care Provider [phone] Reason for Visit * Reason Comments Medication Question Encounter Details Date Type Department Care Team Description 01/25/2019 Telephone [facility] [address] [place] [address] Rajwinder Carter DO [address] [place] [address] Medication Question Allergies Active Allergy Reactions Severity Noted Date Comments Penicillins Rash 02/12/2008 documented as of this encounter (statuses as of 01/30/2019) Medications Medication Sig Dispensed Refills Start Date [...] less than 7.0% ([facility]) Use with Lantus Solostar at bedtime 30 Each 3 10/11/2017 Active nystatin 463181 UNIT/GM creamIndications:Can didal vulvovaginitis Apply topically to affected area 2 times a day. To affacted area for two weeks. 15 g 2 10/12/2017 Active Blood Glucose Monitoring Suppl ([employer] VERIO) w/Device KITIndications:Type 2 diabetes mellitus with hemoglobin A1c goal of less than 7.0% (HCC) Use up to 4 times a day E11.9 1 Kit 0 10/17/2017 Active Glucose Blood (Hmizate.maTOUCH VERIO) STRP Use up to four times [...] as of this encounter (statuses as of 01/30/2019) Active Problems Problem Noted Date Wheelchair dependent [...] as of this encounter (statuses as of 01/30/2019) Resolved Problems Problem Noted Date Resolved Date [...] pain 01/24/2012 01/17/2017 Genetic Sleep Disorder Research Other*[id number] 05/13/2011 04/07/2016 Obstructive sleep apnea 01/18/2011 12/27/19 [...] as of this encounter (statuses as of 01/30/2019) Immunizations Name Administration Dates Next Due HEP [...] Telephone Encounter - Shannan Bojorquez LPN - 01/30/2019 8:29 AM EDT Called GI for additional information, told pt is having procedure done at [facility] and the anesthesiology dept gives prep instructions. Pt should call there. [phone]. Called and spoke to , he says this has already been taken care of and pharmacy is aware of changes. Nothing further from here. * Telephone Encounter - Rajwinder Carter DO - 01/29/2019 5:04 PM EDT Call GI and see what medications she was told to stop. Then, inform Corrie of this so they are not inthe blister pack. * Telephone Encounter - Jovana Lambert, UMA - 01/29/2019 8:32 AM EDT Spoke to patient 02/22/19 She said they are going down her throat with a camera to look her stomach to see if she has stomach cancer Happening at [facility] Out patient Dr Hatch * Telephone Encounter - Rajwinder Carter DO - 01/25/2019 4:48 PM EDT What is pt having done and by whom? If she can give you that information you can call that physician's office to see what needs to be stopped. I am not aware of any surgeries. * Telephone Encounter - Linda Dawson PHARM Tech - 01/25/2019 11:18 AM EDT Pt informed pharmacy that she will be having surgery and doctor told her to stop some medications but she didn't know what prescriptions to stop. Pham from [facility] [phone] called needing to know which medications are to be stopped and when her surgery is. Nothing in notes on chart. Please contact Pharmacy at [phone] as they blister pack Pt's medications. Thank you Linda Dawson Emergency Service Worker Refill Call Center 01/25/2019, 11:20 AM documented in this encounter Plan of Treatment Upcoming Encounters Date Type Specialty Care Team Description 02/05/2019 Nutrition Services Gastroenterology Melissa Omalley RDN [address] [place] [address] [phone] 02/22/2019 Procedure Only Endoscopy Janis Hatch, DO [address] [place] [address] [phone] 02/22/2019 Procedure Only Endoscopy Janis Hatch, DO [address] [place] [address] [phone] 03/25/2019 Office Visit Gastroenterology Lyssa Stout CRNP [address] [facility] [address] [phone] 04/17/2019 Office Visit Family Medicine Rajwinder Carter DO [address] [place] [address] [phone] 06/18/2019 Office Visit Optometry Jarett Schmitt, OD [address] [place] [address] 12/31/2019 Office Visit Gynecology Obstetrics Rosaura Perez, MANAV [address] [facility] [place] [address] Health Maintenance [...] Documents on File Type Date Recorded Patient Equal Opportunity Officer Expl anation Advanced Directive service a kerri default Advanced Directive Advanced Directive Advanced Directive Advanced Directive Advanced Directive Advanced Directive Advanced Directive
--- OUTSIDE RECORDS SUMMARY | 2023-05-10 23:13 | External Medical Summary | Summary of Care ---
Author Name Unknown Organization [facility] Address [place] [address] Care Team Providers Care Water Resource Engineering Specialist Name Role Phone Rajwinder Carter DO Primary Care Provider [phone] Reason for Visit * Reason Comments Forms Request Encounter Details Date Type Department Care Team Description 12/25/2018 Telephone [facility] [address] [place] [address] Rajwinder Carter DO [address] [place] [address] [phone] Forms Request Allergies Active Allergy Reactions Severity Noted Date Comments Penicillins Rash 02/12/2008 documented as of this encounter (statuses as of 12/25/2018) Medications Medication Sig Dispensed Refills Start Date End Date Status NEBULIZER DEVIIndications:Slee p apnea,Other dyspnea and respiratory abnormality,Other specified infantile cerebral palsy as directed 1 0 03/24/2008 Active CENTRUM SILVER PO TABS 1 tab daily 1 Tab 0 05/25/2012 Active albuterol-ipratropiu m (DUONEB) 2.5-0.5 MG/3ML nebulizer solutionIndications: Asthma exacerbation Use 1 vial in nebulizer 180 mL 0 10/09/2017 Active fluticasone (FLONASE) 50 MCG/ACT nasal sprayIndications:Sin us congestion Administer 2 Sprays into each nostril daily. 1 Inhaler 5 10/11/2017 Active Insulin Pen Needle 31G X 6 MM MISCIndications:Type 2 diabetes mellitus with hemoglobin A1c goal of less than 7.0% (HCC) Use with Lantus Solostar at bedtime 30 Each 3 10/11/2017 Active nystatin 647894 UNIT/GM creamIndications:Can didal vulvovaginitis Apply topically to affected area 2 times a day. To affacted area for two weeks. 15 g 2 10/12/2017 Active Blood Glucose Monitoring Suppl ([employer]enta) w/Device KITIndications:Type 2 diabetes mellitus with hemoglobin A1c goal of less than 7.0% ([facility]) Use up to 4 times a day E11.9 1 Kit 0 10/17/2017 Active Glucose Blood (Bright FundsUCH VERIO) STRP Use up to four times a day as directed.DX:E11. 9 400 Strip 3 12/04/2017 Active vitamin c (ASCORBIC ACID) 500 MG Tablet Take 500 mg by mouth daily. 0 Active escitalopram (LEXAPRO) 20 MG Tablet Take 1 Tab by mouth daily. 30 Tab 5 05/18/2018 Active levothyroxine (LEVOXYL) 150 MCG TabletIndications:Ac quired hypothyroidism Take 1 Tab by mouth daily. (at least 30 min prior to breakfast or other meds) 30 Tab 11 05/18/2018 Active potassium chloride ER 10 MEQ TBCRIndications:Hypo kalemia With food. Pt reports only taking once dailly. 60 Tab 5 05/18/2018 Active MetFORMIN (GLUCOPHAGE) 1000 MG TabletIndications:Ty pe 2 diabetes mellitus with hemoglobin A1c goal of less than 7.0% ([facility]) Take 1 Tab by mouth 2 times a day. With food. 60 Tab 5 05/18/2018 Active omeprazole (PRILOSEC) 20 MG CPDR Take 1 Cap by mouth daily. 30 Cap 05/18/2018 Active atorvaSTATin (LIPITOR) 40 MG TabletIndications:Dy slipidemia, goal LDL below 70 Take 1 Tab by mouth at bedtime. 30 Tab 5 05/18/2018 Active furosemide (LASIX) 20 MG TabletIndications:Lo calized edema,Venous stasis dermatitis of both lower extremities One pill by mouth once a day, as needed for edema 30 Tab 05/18/2018 Active fexofenadine (BERNARDA) 180 MG TabletIndications:Al lergic conjunctivitis of both eyes,Allergic rhinitis due to other allergic trigger, unspecified seasonality One pill by mouth once a day as needed for allergies 30 Tab 11 05/18/2018 Active tamsulosin (FLOMAX) 0.4 MG Capsule Take 1 Cap by mouth daily. Through urology 30 Cap 5 05/18/2018 Active nadolol (CORGARD) 20 MG Tablet Take 1 Tab by mouth daily. 30 Tab 5 05/18/2018 Active gabapentin (NEURONTIN) 300 [...] AT BEDTIME 30 Tab 5 11/29/2018 Active documented as of this encounter (statuses as of 12/25/2018) Active Problems Problem Noted Date Wheelchair dependent [...] as of this encounter (statuses as of 12/25/2018) Resolved Problems Problem Noted Date Resolved Date [...] pain 01/24/2012 01/17/2017 Genetic Sleep Disorder Research Other*[id number] 05/13/2011 04/07/2016 Obstructive sleep apnea 01/18/2011 12/27/19 [...] as of this encounter (statuses as of 12/25/2018) Immunizations Name Dates Previously Given Next Due [...] Telephone Encounter - Rajwinder Carter DO - 12/25/2018 1:38 PM EDT Signed. In Forms Bin to be faxed. * Telephone Encounter - Jovana Lambert RN - 12/25/2018 11:39 AM EDT [facility] Form for Diabetic shoes Last OV attached documented in this encounter Plan of Treatment Upcoming Encounters Date Type Specialty Care Team Description 01/09/2019 Office Visit Family Medicine Rajwinder Carter DO [address] [place] [address] [phone] 02/05/2019 Nutrition Services Gastroenterology Melissa Omalley, RDN [address] [place] [address] [phone] 02/22/2019 Procedure Only Endoscopy Janis Hatch, DO [address] [place], [place] [address] [phone] 02/22/2019 Procedure Only Endoscopy Janis Hatch, DO [address] [place], [place] [address] [phone] 03/25/2019 Office Visit Gastroenterology Lyssa Stout CRNP [address] [facility], [place] [address] 06/18/2019 Office Visit Optometry Jarett Schmitt, OD [address] [place] [address] 12/31/2019 Office Visit Gynecology Obstetrics Rosaura Perez, CNM [address] [facility], [place] [address] Health Maintenance Due Date Last [...] For more information, please contact: [place] [phone]
--- OUTSIDE RECORDS SUMMARY | 2023-05-10 23:13 | External Medical Summary | Summary of Care ---
Author Name Unknown Organization [place] [address] Care Team Providers Care Finisher Merchant Products Name Role Phone Rajwinder Carter Primary Care Provider [phone] Reason for Visit * Reason Comments Weight Management Medical Management Encounter Details Date Type Department Care Team Description 02/06/2019 Nutrition Services Nutrition & Weight Management, [facility] [address] [facility] [place] [address] Melissa Omalley RDN [address] [place] [id number] Obesity, morbid (more than 100 lbs over ideal weight or BMI > 40) ([facility])*; Type 2 diabetes mellitus with hemoglobin A1c goal of less than 7.0% ([facility]); HTN, goal below 140/90; Cirrhosis of liver ([facility]); Dyslipidemia, goal LDL below 70; Acquired hypothyroidism Allergies Active Allergy Reactions Severity Noted Date Comments Penicillins Rash 02/12/2008 documented as of this encounter (statuses as of 02/06/2019) Medications Medication Sig Dispensed Refills Start Date [...] bedtime 30 Each 3 10/11/2017 Active nystatin 103139 UNIT/GM creamIndications:Can didal vulvovaginitis Apply topically to affected area 2 times a day. To affacted area for two weeks. 15 g 2 10/12/2017 Active Blood Glucose Monitoring Suppl (SpreadshirtTOUCH VERIO) w/Device KITIndications:Type 2 diabetes mellitus with hemoglobin A1c goal of less than 7.0% (HCC) Use up to 4 times a day E11.9 1 Kit 0 10/17/2017 Active Glucose Blood (SpreadshirtTOUCH VERIO) STRP Use up to four times [...] as of this encounter (statuses as of 02/06/2019) Active Problems Problem Noted Date Wheelchair dependent [...] as of this encounter (statuses as of 02/06/2019) Resolved Problems Problem Noted Date Resolved Date [...] pain 01/24/2012 01/17/2017 Genetic Sleep Disorder Research Other*[id number] 05/13/2011 04/07/2016 Obstructive sleep apnea 01/18/2011 12/27/19 [...] as of this encounter (statuses as of 02/06/2019) Immunizations Name Administration Dates Next Due HEP [...] Reading Time Taken Comments Blood Pressure 124/76 02/06/2019 12:56 PM EDT Pulse 68 02/06/2019 12:56 PM EDT Temperature - - Respiratory Rate - - Oxygen Saturation - - Inhaled Oxygen Concentration - - Weight 118 kg (260 lb 1.6 oz) 02/06/2019 12:56 P M EDT Height - - Body Mass Index 52.53 04/11/2018 2:27 PM EDT documented in this encounter Patient Instructions * Patient Instructions* Melissa Omalley RDN - 02/06/2019 1:28 PM EDT PATIENT GOALS: 1) Patient to follow a portion/calorie controlled diet with focus on choosing: leaner proteins, more fruits and low calorie vegetables, limiting higher carbohydrate sources such as potatoes, pasta, refined carbohydrates, simple sugars etc. 2) Patient to add [...] to start chair exercises daily as tolerated. 7) Patient to restart manual food diaries to aid with portion and calorie control. documented in this encounter Progress Notes * Melissa Omalley RDN - 02/06/2019 12:49 PM EDT GI/NUTRITION CONSULT [facility] Patient was identified at visit by name and date. PATIENT: Shaina Bustos DATE: 02/06/19 NUTRITION ASSESSMENT Diagnosis Code for referral for [...] counseling for weight management. Patientstated she has gotten off track and is ready to bet back on track. Patient stopped using food diaries and exercising since last review. Patient stated does not take Lasix consistently for edema management. Describes typical diet history/24 hr recall Breakfast: Oatmeal or eggs couple slices of lam sometimes a waffle [place] or a Pancake, sometimes a bowl of cereal Lunch: Frozen Meals (Banquet) Dinner: Sometimes a frozen meal or a homecooked meal with a potato with peas, corns or carrot Snacks:Strawberries or baby oranges Drinks: 48-64 ounces WT GOAL: Patient would like to lose 100 lbs alf CURRENT WT: 260 lbs Ht: 4'11" BMI: 53 LAST VISIT WT: 260 lbs 12/24/18 Weight History: 254 lbs 09/24/18 245.6 lbs 07/16/18 259.9 lbs 04/23/18 WEIGHT CHANGES: Weight remained the same since last visit. MNT: Calorie Controlled Diet, Consistent Carbohydrate Patient is interested in the following treatment options for obesity: medical management. BARRIERS TO LEARNING: None SPECIAL EDUCATION NEEDS: None Component Latest Ref Rng & Units 01/30/2019 WBC 4.00 - 10.80 K/uL 3.80 (L) RBC 3.85 - 5.15 M/uL 3.32 (L) HGB 12.0 - 15.3 g/dL 8.7 (L) HCT 36.0 - 45.2 % 29.6 (L) MCV 81.5 - 97.5 fL 89.2 MCH 27.0 - 34.0 pg 26.2 (L) MCHC 32.0 - 36.0 g/dL 29.4 (L) RDW 11.5 - 15.5 % 18.2 (H) PLATELET COUNT 140 - 400 K/uL 98 (L) MPV 6.6 - 11.1 fL 14.4 (H) NEUTS 40 - 75 % 55.8 LYMPHS 18 - 42 % 24.7 MONOS 1 - 11 % 10.0 EOS 0 - 6 % 8.2 (H) BASOS 0 - 2 % 0.8 IMMATURE GRANULOCYTE 0 - 2 % 0.5 ABS. NEUTS 1.8 - 7.7 K/uL 2.12 ABS. LYMPHS 1.0 - 4.8 K/uL 0.94 (L) ABS. MONOS 0.0 - 1.1 K/uL 0.38 ABS. EOS 0.0 - 0.7 K/uL 0.31 ABS. BASOS 0.0 - 0.2 K/uL 0.03 ABSOLUTE IMMATURE GRANULOCYTES 0.0 - 0.2 K/uL 0.02 LABS: PHYSICAL ACTIVITY:Light SUPPLEMENTS: Vitamin C PRIOR NUTRITION COUNSELING: No prior counseling DAILY ENERGY/NUTRIENT NEEDS:[id number] KCALS for wt loss DIET RECALL INDICATES: Larger portions Inadequate fruit and vegetable intake KNOWLEDGE ASSESSMENT: adequate knowledge NUTRITION DIAGNOSIS Food and nutrition related knowledge deficit in relation to calorie intake exceeding calorie expenditure as evidenced by diagnosis of Obesity. NUTRITION INTERVENTION PATIENT GOALS: 1) Patient to follow a [...] to start chair exercises daily as tolerated. 7) Patient to restart manual food diaries to aid with portion and calorie control. EXPECTED OUTCOMES: Demonstrated interest in learning. Expect compliance with diet recommendations. PLAN: Patient scheduled to return in one month; dietitian phone # given for future reference. 30 minutes return visit Melissa Omalley RDN documented in this encounter Nursing Notes * Alirio Corcoran LPN - 02/06/2019 12:55 PM EDT Patient identified by full name and date of Chief Complaint Patient presents with Weight Management Medical Management documented in this encounter Plan of Treatment Upcoming Encounters Date Type Specialty Care Team Description 02/22/2019 Procedure Only Endoscopy Janis Hatch, DO [address] [place] [address] [phone] 02/22/2019 Procedure Only Endoscopy Janis Hatch, DO [address] [place] [address] [phone] 04/11/2019 Office Visit Gastroenterology Lyssa Stout CRNP [address] [place] [address] [phone] 04/17/2019 Office Visit Family Medicine Rajwinder Carter, DO [address] [place] [address] [phone] 05/14/2019 Nutrition Services Gastroenterology Melissa Omalley, RDN [address] [place] [address] 06/18/2019 Office Visit Optometry Jarett Schmitt, OD [address] [place] [address] 12/31/2019 Office Visit Gynecology Obstetrics Rosaura Perez, CNM [address] [facility] [place] [address] [phone] Health Maintenance Due Date Last Done Comments [...] Cirrhosis of liver without mention of alcohol Dyslipidemia, goal LDL below 70 Other and unspecified hyperlipidemia Acquired hypothyroidism Unspecified hypothyroidism documented in this encounter Advance Directives Documents on File Type Date Recorded Patient Momd Teacher Expl anation Advanced Directive service a kerri default Advanced Directive Advanced Directive Advanced Directive Advanced Directive Advanced Directive Advanced Directive Advanced Directive
--- OUTSIDE RECORDS SUMMARY | 2023-05-10 23:13 | External Medical Summary ---
Author Name Unknown Address [address] [facility] [place] [address] Phone Organization [id number]:[facility] [address] [id number] Laboratory Report Ordering Provider Test Date Status RENATO FLORESCRYSTALYASH 01/30/2019 12:37:00 Final Observation Date Value Abnormality Reference Status TSH 01/30/2019 22:21 2.11 0.27-4.2 Fin al T4, Free 01/30/2019 22:21 NOT APPLICABLE 0.9-1.7 Final Performing Location [facility] [address] [facility] [address]
--- OUTSIDE RECORDS SUMMARY | 2023-05-10 23:13 | External Medical Summary ---
Author Name Unknown Address [address] [place] [address] [place] [address] Phone Organization K01:[facility] [address] [facility] [address] Laboratory Report Ordering Provider Test Date Status ODESSA GUSMAN OILER BANDER 01/30/2019 12:37:00 Final Observation Date Value Abnormality Reference Status WBC, Total 01/30/2019 18:21 3.80 Below low normal 4.00- 10.80 Final RBC 01/30/2019 18:21 3.32 Below low normal 3.85-5 .15 Final Hemoglobin 01/30/2019 18:21 8.7 Below low normal 12.0- 15.3 Final HCT 01/30/2019 18:21 29.6 Below low normal 36.0-4 5.2 Final MCV 01/30/2019 18:21 89.2 81.5-97.5 Fin al MCH 01/30/2019 18:21 26.2 Below low normal 27.0-3 4.0 Final MCHC 01/30/2019 18:21 29.4 Below low normal 32.0-3 6.0 Final RDW 01/30/2019 18:21 18.2 Above high normal 11.5- 15.5 Final Platelets 01/30/2019 18:21 98 Below low normal 140-40 0 Final MPV 01/30/2019 18:21 14.4 Above high normal 6.6-1 1.1 Final Segs 01/30/2019 18:21 55.8 40-75 Fin al Lymphs % 01/30/2019 18:21 24.7 18-42 Fin al Monos 01/30/2019 18:21 10.0 1-11 Fin al Eosinophils 01/30/2019 18:21 8.2 Above high normal 0-6 Final Basos 01/30/2019 18:21 0.8 0-2 Fin al Immature Granulocyte, Percent 01/30/2019 18:21 0.5 0-2 Final Absolute Segs 01/30/2019 18:21 2.12 1.8-7.7 Final Lymphs, absolute 01/30/2019 18:21 0.94 Below low normal 1.0-4.8 Final Monos, Abs 01/30/2019 18:21 0.38 0.0-1.1 Fi nal Eos, Abs 01/30/2019 18:21 0.31 0.0-0.7 Fin al Basos, Abs 01/30/2019 18:21 0.03 0.0-0.2 Fi nal Immature Granulocytes, Number 01/30/2019 18:21 0.02 0.0-0.2 Final Performing Location [facility] [address] [facility] [address]
--- OUTSIDE RECORDS SUMMARY | 2023-05-10 23:13 | External Medical Summary | Summary of Care ---
Author Name Unknown Organization [place] [address] Care Team Providers Care Poison Information Specialist Name Role Phone Rajwinder Carter DO Primary Care Provider Reason for Visit * Reason Comments eRx-Medication Refill Encounter Details Date Type Department Care Team Description 12/25/2018 [address] [place] [place], [place] [id number] Rajwinder Carter DO [address] [place] [address] [phone] Type 2 diabetes mellitus with hemoglobin A1c goal of less than 7.0% ([facility]); Dyslipidemia, goal LDL below 70 Allergies Active Allergy Reactions Severity Noted Date Comments Penicillins Rash 02/12/2008 documented as of this encounter (statuses as of 12/26/2018) Medications Medication Sig Dispensed Refills Start Date End Date Status NEBULIZER DEVIIndications:Sle ep apnea,Other dyspnea and respiratory abnormality,Other specified infantile cerebral palsy as directed 1 0 8 Active CENTRUM SILVER PO TABS 1 tab daily 1 Tab 0 2 Active albuterol-ipratropi um (DUONEB) 2.5-0.5 MG/3ML nebulizer solutionIndications :Asthma exacerbation Use 1 vial in nebulizer 180 mL 0 8 Active fluticasone (FLONASE) 50 MCG/ACT nasal sprayIndications:Si nus congestion Administer 2 Sprays into each nostril daily. 1 Inhaler 5 8 Active Insulin Pen Needle 31G X 6 MM MISCIndications:Typ e 2 diabetes mellitus with hemoglobin A1c goal of less than 7.0% (HCC) Use with Lantus Solostar at bedtime 30 Each 3 8 Active nystatin 037085 UNIT/GM creamIndications:Ca ndidal vulvovaginitis Apply topically to affected area 2 times a day. To affacted area for two weeks. 15 g 2 8 Active Blood Glucose Monitoring Suppl ([employer] VERIO) w/Device KITIndications:Type 2 diabetes mellitus with hemoglobin A1c goal of less than 7.0% (HCC) Use up to 4 times a day E11.9 1 Kit 0 8 Active Glucose Blood (NewslabsTOUCH VERIO) STRP Use up to four times [...] one midday, two in pm, 180 Cap 8 Active insulin glargine (LANTUS SOLOSTAR) 100 [...] affected area. 45 g 1 9 Active cyclobenzaprine (FLEXERIL) 10 MG Tablet TAKE 1 TABLET ONCE DAILY AT BEDTIME 30 Tab 0 9 Active traZODone (DESYREL) 50 MG TabletIndications:S [...] AT BEDTIME 30 Tab 0 9 Active escitalopram (LEXAPRO) 20 MG Tablet Take 1 Tab by mouth daily. 30 Tab 5 8 12/26/19 19 Discontinued MetFORMIN (GLUCOPHAGE) 1000 MG TabletIndications:T ype 2 diabetes mellitus with hemoglobin A1c goal of less than 7.0% (HCC) Take 1 Tab by mouth 2 times a day. With food. 60 Tab 5 8 12/26/19 19 Discontinued atorvaSTATin (LIPITOR) 40 MG TabletIndications:D yslipidemia, goal LDL below 70 Take 1 Tab by mouth at bedtime. 30 Tab 5 8 12/26/19 19 Discontinued furosemide (LASIX) 20 MG TabletIndications:L ocalized edema,Venous stasis dermatitis of both lower extremities One pill by mouth once a day, as needed for edema 30 Tab 5 8 12/27/19 19 Discontinued tamsulosin (FLOMAX) 0.4 MG Capsule Take 1 Cap by mouth daily. Through urology 30 Cap 5 8 12/26/19 19 Discontinued nadolol (CORGARD) 20 MG Tablet Take 1 Tab by mouth daily. 30 Tab 5 8 12/26/19 19 Discontinued documented as of this encounter (statuses as of 12/26/2018) Active Problems Problem Noted Date Wheelchair dependent [...] as of this encounter (statuses as of 12/26/2018) Resolved Problems Problem Noted Date Resolved Date [...] pain 01/24/2012 01/17/2017 Genetic Sleep Disorder Research Other*[id number] 05/13/2011 04/07/2016 Obstructive sleep apnea 01/18/2011 12/27/19 [...] as of this encounter (statuses as of 12/26/2018) Immunizations Name Dates Previously Given Next Due [...] Telephone Encounter - Brianne Pal PA-C - 12/26/2018 4:30 PM EDT Signed Prescriptions: Disp Refills escitalopram (LEXAPRO) 20 MG Tablet 30 Tab 4 Sig: TAKE 1 TABLETBY MOUTH ONCE DAILYAuthorizing Provider: BRIANNE PAL MetFORMIN (GLUCOPHAGE) 1000 MG Tablet 60 Tab 4 Sig: TAKE 1 TABLET BY MOUTH TWICE DAILY with foodAuthorizing Provider: BRIANNE PAL nadolol (CORGARD) 20 MG Tablet 30 Tab 4 Sig: TAKE 1 TABLET BY MOUTH ONCE DAILYAuthorizing Provider: BRIANNE PAL tamsulosin (FLOMAX) 0.4 MG Capsule 30 Cap 4 Sig: TAKE 1 CAPSULE BY MOUTH ONCE DAILYAuthorizing Provider: BRIANNE PAL atorvaSTATin (LIPITOR) 40 MG Tablet 30 Tab 0 Sig: TAKE 1 TABLET BY MOUTH AT BEDTIME Authorizing Provider: BRIANNE PAL * Telephone Encounter - Jovana Lambert RN - 12/26/2018 10:13 AM EDT Pending Prescriptions: Disp Refills escitalopram (LEXAPRO) 20 MG Tablet [Phar*30 Tab 4 Sig: TAKE 1 TABLET BY MOUTH ONCE DAILY MetFORMIN (GLUCOPHAGE) 1000 MG Tablet [Ph*60 Tab 4 Sig: TAKE 1 TABLET BY MOUTH TWICE DAILY with food nadolol (CORGARD) 20 MG Tablet [Pharmacy *30 Tab 4 Sig: TAKE 1 TABLET BY MOUTH ONCE DAILY tamsulosin (FLOMAX) 0.4 MG Capsule [Phar m*30 Cap 4 Sig: TAKE 1 CAPSULE BY MOUTH ONCE DAILY atorvaSTATin (LIPITOR) 40 MG Tablet [Phar*30 Tab 5 Sig: TAKE 1 TABLET BY MOUTH AT BEDTIME * Telephone Encounter - Jovana Lambert RN - 12/26/2018 10:10 AM EDT Recent labs but not lipids Pending Prescriptions: Disp Refills escitalopram (LEXAPRO) 20 MG Tablet [Phar*30 Tab 4 Sig: TAKE 1 TABLET BY MOUTH ONCE DAILY MetFORMIN (GLUCOPHAGE) 1000 MG Tablet [Ph*60 Tab 4 Sig: TAKE 1 TABLET BY MOUTH TWICE DAILY with food nadolol (CORGARD) 20 MG Tablet [Pharmacy *30 Tab 4 Sig: TAKE 1 TABLET BY MOUTH ONCE DAILY tamsulosin (FLOMAX) 0.4 MG Capsule [Pharm*30 Cap 4 Sig: TAKE 1 CAPSULE BY MOUTH ONCE DAILY atorvaSTATin (LIPITOR) 40 MG Tablet [Phar*30 Tab 4 Sig: TAKE 1 TABLET BY MOUTH AT BEDTIME Last Office Visit: 11/26/2018 Next Office Visit: 01/09/2019 Scheduled Provider(s): Rajwinder Carter, DO If no future appointments scheduled, and last appointment is greater than a year ago, please schedule patient for a follow-up appointment Last date the medication was ordered: 05/18/18 Patient Phone Numbers Labs: Lab Results Component Value Date/Time CREAT 0.7 12/24/2018 02:36 PM POTASSIUM 4.3 12/24/2018 02:36 PM TSH 0.02 (L) 03/28/2018 04:20 PM LDLCALC 57 05/05/2016 10:19 AM LDLDIRECT 57 10/11/2017 01:18 PM ALT 21 12/24/2018 02:36 PM HGBA1C 6.1 (H) 09/21/2018 11:23 AM * Telephone Encounter - Susan Rosales RN - 12/26/2018 7:21 AM EDT Pending Prescriptions: Disp Refills escitalopram (LEXAPRO) 20 MG Tablet [Phar*30 Tab 4 Sig: TAKE 1 TABLET BY MOUTH ONCE DAILY MetFORMIN (GLUCOPHAGE) 1000 MG Tablet [Ph*60 Tab 4 Sig: TAKE 1 TABLET BY MOUTH TWICE DAILY with food nadolol (CORGARD) 20 MG Tablet [Pharmacy *30 Tab 4 Sig: TAKE 1 TABLET BYMOUTH ONCE DAILY tamsulosin (FLOMAX) 0.4 MG Capsule [Pharm*30 Cap 4 Sig: TAKE 1 CAPSULE BY MOUTH ONCE DAILY atorvaSTATin (LIPITOR) 40 MG Tablet [Phar*30 Tab 4 Sig: TAKE 1 TABL ET BY MOUTH AT BEDTIME documented in this encounter Plan of Treatment Upcoming Encounters Date Type Specialty Care Team Description 01/09/2019 Office Visit Family [facility] [address] [facility] [id number] 02/05/2019 Nutrition Services Gastroenterology Melissa Omalley, SAMANTHA [address] [place] [address] [phone] 02/22/2019 Procedure Only Endoscopy Janis Hatch, [address] [place] [address] [phone] 02/22/2019 Procedure Only Endoscopy Janis Hatch, [address] [place] [address] [phone] 03/25/2019 Office Visit [facility]ology [facility] [address] [facility] [place] [address] [phone] 06/18/2019 Office Visit Optometry Oskar Jaretttiffany Fritz, OD [address] [place] [address] [phone] 12/31/2019 Office Visit Gynecology Obstetrics Rosaura Perez, BOOM [address] [facility] [place] [address] [phone] Health Maintenance Due Date Last Done Comments [...] hyperlipidemia documented in this encounter Advance Directives Patient has advance care planning documents on file. For more information, please contact: [place] [phone]
--- OUTSIDE RECORDS SUMMARY | 2023-05-10 23:13 | External Medical Summary | Summary of Care ---
Author Name Unknown Organization [facility] Address [place] [address] Care Team Providers Care Security Analyst Name Role Phone Rajwinder Lara DO Primary Care Provider [phone] Reason for Visit * Reason Comments eRx-Medication Refill Encounter Details Date Type Department Care Team Description 01/24/2019 Refill [facility] [address] [place] [address] Rajwinder Lara DO [address] [place] [address] [phone] Allergies Active Allergy Reactions Severity Noted Date Comments Penicillins Rash 02/12/2008 documented as of this encounter (statuses as of 01/25/2019) Medications Medication Sig Dispensed Refills Start Date [...] 7.0% ([facility]) Use with Lantus Solostar at bedtime 30 Each 3 8 Active nystatin 255427 UNIT/GM creamIndications:Ca ndidal vulvovaginitis Apply topically to affected area 2 times a day. To affacted area for two weeks. 15 g 2 8 Active Blood Glucose Monitoring Suppl ([employer] VERIO) w/Device KITIndications:Type 2 diabetes mellitus with hemoglobin A1c goal of less than 7.0% (HCC) Use up to 4 times a day E11.9 1 Kit 0 8 Active Glucose Blood (JoongelTOUCH VERIO) STRP Use up to four times [...] 7.0% ([facility]) Inject 24 units at bed time 5 [...] as of this encounter (statuses as of 01/25/2019) Active Problems Problem Noted Date Wheelchair dependent [...] as of this encounter (statuses as of 01/25/2019) Resolved Problems Problem Noted Date Resolved Date [...] pain 01/24/2012 01/17/2017 Genetic Sleep Disorder Research Other*[id number] 05/13/2011 04/07/2016 Obstructive sleep apnea 01/18/2011 12/27/19 [...] as of this encounter (statuses as of 01/25/2019) Immunizations Name Dates Previously Given Next Due [...] Telephone Encounter - Rajwinder Lara DO - 01/25/2019 7:54 AM EDT Signed Prescriptions: Disp Refills cyclobenzaprine (FLEXERIL) 10 MG Tablet 30 Tab 0 Sig: TAKE 1 TABLET BY MOUTH EVERY NIGHT AT BEDTIME Authorizing Provider: RAJWINDER LARA * Telephone Encounter - Gilma Cueva LPN - 01/24/2019 4:17 PM EDT Pending Prescriptions: Disp Refills cyclobenzaprine (FLEXERIL) 10 MG Tablet [*30 Tab 0 Sig: TAKE 1 TABLET BY MOUTH EVERY NIGHT AT BEDTIME * Telephone Encounter - Gilma Cueva LPN - 01/24/2019 4:17 PM EDT Pending Prescriptions: Disp Refills cyclobenzaprine (FLEXERIL) 10 MG Tablet [*30 Tab 0 Sig: TAKE 1 TABLET BY MOUTH EVERY NIGHT AT BEDTIME Last Office Visit: 01/09/2019 Next Office Visit: 04/17/2019 Scheduled Provider(s): Rajwinder Lara DO If no future appointments scheduled, and last appointment is greater than a year ago, please schedule patient for a follow-up appointment Last date the medication was ordered: 11/30/2018 Patient Phone Numbers Labs: Lab Results Component [...] Team Description 02/05/2019 Nutrition Services Gastroenterology Melissa Omalley, RDN [address] [place] [address] 02/22/2019 Procedure Only Endoscopy Janis Hatch, DO [address] [facility] [place] [address] [phone] 02/22/2019 Procedure Only Endoscopy Janis Hatch, DO [address] [facility] [place] [address] [phone] 03/25/2019 Office Visit [facility]ology [facility]out [facility] [address] [facility] [address] 04/17/2019 Office Visit Family Medicine Rajwinder Lara, DO [address] [facility] [place] [id number] 06/18/2019 Office Visit Optometry Jarett Schmitt, OD [address] [place] [address] 12/31/2019 Office Visit Gynecology Obstetrics Rosaura Perez, CN [address] [facility], [place] [address] Health Maintenance Due Date Last [...] For more information, please contact: [place] [phone]
--- OUTSIDE RECORDS SUMMARY | 2023-05-10 23:13 | External Medical Summary | Summary of Care ---
Author Name Unknown Organization [facility] Address [place] [address] Care Team Providers Care Automotive Engineering Technician Name Role Phone Rajwinder Carter DO Primary Care Provider [phone] Reason for Visit * Reason Comments Forms Request Encounter Details Date Type Department Care Team Description 02/07/2019 Telephone [facility] [address] [place] [address] Rajwinder Carter DO [address] [place] [address] Forms Request Allergies Active Allergy Reactions Severity Noted Date Comments Penicillins Rash 02/12/2008 documented as of this encounter (statuses as of 02/08/2019) Medications Medication Sig Dispensed Refills Start Date [...] less than 7.0% ([facility]) Use with Lantus Solostar at bedtime 30 Each 3 10/11/2017 Active nystatin 647904 UNIT/GM creamIndications:Can didal vulvovaginitis Apply topically to affected area 2 times a day. To affacted area for two weeks. 15 g 2 10/12/2017 Active Blood Glucose Monitoring Suppl ([employer] Entertainment[employer] VERIO) w/Device KITIndications:Type 2 diabetes mellitus with hemoglobin A1c goal of less than 7.0% (HCC) Use up to 4 times a day E11.9 1 Kit 0 10/17/2017 Active Glucose Blood ([employer] EntertainmentTOUCH VERIO) STRP Use up to four times [...] of less than 7.0% ([facility]) TAKE 1 TABLET BY MOUTH TWICE DAILY [...] as of this encounter (statuses as of 02/08/2019) Active Problems Problem Noted Date Wheelchair dependent [...] as of this encounter (statuses as of 02/08/2019) Resolved Problems Problem Noted Date Resolved Date [...] pain 01/24/2012 01/17/2017 Genetic Sleep Disorder Research Other*[id number] 05/13/2011 04/07/2016 Obstructive sleep apnea 01/18/2011 12/27/19 [...] as of this encounter (statuses as of 02/08/2019) Immunizations Name Administration Dates Next Due HEP [...] faxed to office Thank you, Ava Felix Research Geneticist Refill Call Center 02/07/2019, 8:29 AM documented in this encounter Plan of Treatment Upcoming Encounters Date Type Specialty Care Team Description 02/22/2019 Procedure Only Endoscopy Janis Hatch, DO [address] [facility] [place] [id number] 02/22/2019 Procedure Only Endoscopy Janis Hatch, DO [address] [facility] [place] [address] 04/11/2019 Office Visit Gastroenterology Lyssa Stout CRNP [address] [facility] [place] [address] 04/17/2019 Office Visit Family Medicine Rajwinder Carter, DO [address] [place] [facility] [place] [address] 05/14/2019 Nutrition Services Gastroenterology Melissa Omalley, RDN [address] [facility] [place] [id number] 06/18/2019 Office Visit Optometry Jarett Schmitt, OD [address] [place] [address] 12/31/2019 Office Visit Gynecology Obstetrics Rosaura Perez, CNM [address] [facility] [place] [address] Health Maintenance [...] Documents on File Type Date Recorded Patient Training And Development Assistant Expl anation Advanced Directive service a kerri default Advanced Directive Advanced Directive Advanced Directive Advanced Directive Advanced Directive Advanced Directive Advanced Directive
--- OUTSIDE RECORDS SUMMARY | 2023-05-10 23:13 | External Medical Summary | Summary of Care ---
Author Name Unknown Organization [place] [address] Care Team Providers Care Solar Thermal Technician Name Role Phone Rajwinder Lara DO Primary Care Provider Reason for Visit * Reason Comments eRx-Medication Refill Encounter Details Date Type Department Care Team Description 12/26/2018 Refill [facility] [address] [place] [address] Rajwinder Lara DO [address] [place] [address] [phone] Localized edema; Venous stasis dermatitis of both [...] bedtime 30 Each 3 8 Active nystatin 572316 UNIT/GM creamIndications:Ca ndidal vulvovaginitis Apply topically to affected area 2 times a day. To affacted area for two weeks. 15 g 2 8 Active Blood Glucose Monitoring Suppl ([employer]hiIO) w/Device KITIndications:Type 2 diabetes mellitus with hemoglobin A1c goal of less than 7.0% (HCC) Use up to 4 times a day E11.9 1 Kit 0 8 Active Glucose Blood (NetviewerTOUCH VERIO) STRP Use up to four times a day as directed.DX:E11 .9 400 Strip 3 8 Active vitamin c (ASCORBIC ACID) 500 MG Tablet Take 500 mg by mouth daily. 0 Active escitalopram (LEXAPRO) 20 MG Tablet Take 1 Tab by mouth daily. 30 Tab 5 8 Active levothyroxine (LEVOXYL) 150 MCG TabletIndications:A cquired hypothyroidism Take 1 Tab by mouth daily. (at least 30 min prior to breakfast or other meds) 30 Tab 11 8 Active potassium chloride ER 10 MEQ TBCRIndications:Hyp okalemia With food. Pt reports only taking once dailly. 60 Tab 5 8 Active MetFORMIN (GLUCOPHAGE) 1000 MG TabletIndications:T ype 2 diabetes mellitus with hemoglobin A1c goal of less than 7.0% (HCC) Take 1 Tab by mouth 2 times a day. With food. 60 Tab 5 8 Active omeprazole (PRILOSEC) 20 MG CPDR Take 1 Cap by mouth daily. 30 Cap 5 8 Active atorvaSTATin (LIPITOR) 40 MG TabletIndications:D yslipidemia, goal LDL below 70 Take 1 Tab by mouth at bedtime. 30 Tab 5 8 Active fexofenadine (BERNARDA) 180 MG TabletIndications:A llergic conjunctivitis of both eyes,Allergic rhinitis due to other allergic trigger, unspecified seasonality One pill by mouth once a day as needed for allergies 30 Tab 11 8 Active tamsulosin (FLOMAX) 0.4 MG Capsule Take 1 Cap by mouth daily. Through urology 30 Cap 5 8 Active nadolol (CORGARD) 20 MG Tablet Take 1 Tab by mouth daily. 30 Tab 5 8 Active gabapentin (NEURONTIN) 300 [...] AT BEDTIME 30 Tab 5 9 Active furosemide (LASIX) 20 MG TabletIndications:L ocalized edema,Venous stasis dermatitis of both lower extremities TAKE 1 TABLET BY MOUTH ONCE DAILY as needed for edema 30 Tab 5 9 Active furosemide (LASIX) 20 MG TabletIndications:L ocalized edema,Venous stasis dermatitis of both lower extremities One pill by mouth once a day, as needed for edema 30 Tab 5 8 12/27/19 19 Discontinued documented as of this encounter [...] pain 01/24/2012 01/17/2017 Genetic Sleep Disorder Research Other*[id number] 05/13/2011 04/07/2016 Obstructive sleep apnea 01/18/2011 12/27/19 [...] Telephone Encounter - Rajwinder Lara DO - 12/26/2018 12:48 PM EDT Signed Prescriptions: Disp Refills furosemide (LASIX) 20 MG Tablet 30 Tab 5 Sig: TAKE 1 TABLET BY MOUTH ONCE DAILY as needed for edema Authorizing Provider: RAJWINDER LARA * Telephone Encounter - Shania Valerio LPN - 12/26/2018 11:26 AM EDT Pending Prescriptions: Disp Refills furosemide (LASIX) 20 MG Tablet [Pharmacy*30 Tab 5 Sig: TAKE 1 TABLET BY MOUTH ONCE DAILY as needed for edema * Telephone Encounter - Shania Valerio LPN - 12/26/2018 11:26 AM EDT Last Office Visit: 11/26/2018 Pending Prescriptions: Disp Refills furosemide (LASIX) 20 MG Tablet [Pharmacy*30 Tab 5 Sig: TAKE 1 TABLET BY MOUTH ONCE DAILY as needed for edema Next Office Visit: 01/09/2019 Scheduled Provider(s): Rajwinder Lara DO * Telephone Encounter - Yanira Graves LPN - 12/26/2018 10:29 AM EDT Pending Prescriptions: Disp Refills furosemide (LASIX) 20 MG Tablet [Pharmacy*30 Tab 5 Sig: TAKE 1 TABLET BY MOUTH ONCE DAILY as needed for edema * Telephone Encounter - Yanira Graves LPN - 12/26/2018 10:29 AM EDT Pending Prescriptions: Disp Refills furosemide (LASIX) 20 MG Tablet [Pharmacy*30 Tab 4 Sig: TAKE 1 TABLET BY MOUTH ONCE DAILY as needed for edema Last Office Visit: 11/26/2018 Next Office Visit: 01/09/2019 Scheduled Provider(s): Rajwinder Lara DO If no [...] Description 01/09/2019 Office Visit [facility] [address] [facility] [id number] 02/05/2019 Nutrition Services Gastroenterology Melissa Omalley, SAMANTHA [address] [place] [address] [phone] 02/22/2019 Procedure Only Endoscopy Janis Hatch DO [address] [place] [address] [phone] 02/22/2019 Procedure Only Endoscopy Janis Hatch, [address] [place] [address] [phone] 03/25/2019 Office Visit Gastroenterology Lyssa Stout, ZAK [address] [place] [address] [phone] 06/18/2019 Office Visit Optometry Oskar Jarett Lam, OD [address] [place] [address] 12/31/2019 Office Visit Gynecology Obstetrics Rosaura Perez, CNM [address] [place] [address] [phone] Health Maintenance Due Date Last Done Comments [...] extremities documented in this encounter Advance Directives Patient has advance care planning documents on file. For more information, please contact: [place] [phone]
--- OUTSIDE RECORDS SUMMARY | 2023-05-10 23:13 | External Medical Summary | Summary of Care ---
Author Name Unknown Organization [place] [address] Care Team Providers Care Snapper On Name Role Phone JohnbrianRajwinder thacker Primary Care Provider [phone] Encounter Details Date Type Department Care Team Description 12/21/2018 Scan Encounter Unspecified Department <No scans attached> [...] bedtime 30 Each 3 10/11/2017 Active nystatin 273171 UNIT/GM creamIndications:Can didal vulvovaginitis Apply topically to affected area 2 times a day. To affacted area for two weeks. 15 g 2 10/12/2017 Active Blood Glucose Monitoring Suppl ([employer] VERIO) w/Device KITIndications:Type 2 diabetes mellitus with hemoglobin A1c goal of less than 7.0% (HCC) Use up to 4 times a day E11.9 1 Kit 0 10/17/2017 Active Glucose Blood (ZebitTOUCH VERIO) STRP Use up to four times [...] to breakfast or other meds) 30 Tab 05/18/2018 Active potassium chloride ER 10 MEQ [...] Tab by mouth at bedtime. 30 Tab 05/18/2018 Active furosemide (LASIX) 20 MG TabletIndications:Lo calized edema,Venous stasis dermatitis of both lower extremities One pill by mouth once a day, as needed for edema 30 Tab 05/18/2018 Active fexofenadine (BERNARDA) 180 MG TabletIndications:Al lergic conjunctivitis of both eyes,Allergic rhinitis due to other allergic trigger, unspecified seasonality One pill by mouth once a day as needed for allergies 30 Tab 05/18/2018 Active tamsulosin (FLOMAX) 0.4 MG Capsule Take 1 Cap by mouth daily. Through urology 30 Cap 05/18/2018 Active nadolol (CORGARD) 20 MG Tablet Take 1 Tab by mouth daily. 30 Tab 05/18/2018 Active gabapentin (NEURONTIN) 300 MG Capsule [...] pain 01/24/2012 01/17/2017 Genetic Sleep Disorder Research Other*[id number] 05/13/2011 04/07/2016 Obstructive sleep apnea 01/18/2011 12/27/19 [...] Family Medicine [facility]winder [facility] [address] [facility] [address] 02/05/2019 Nutrition Services Gastroenterology Melissa Omalley, LU[place] [address] [place] [address] [phone] 02/22/2019 Procedure Only [facility]atch DO [facility] [place] [address] [phone] 02/22/2019 Procedure Only Endoscopy Janis Hatch DO [address] [place] [address] 03/25/2019 Office Visit [facility]astroenterology Lyssa Stout CRNP [facility] [place] [address] 06/18/2019 Office Visit Optometry OskarJarett burnett Lam, OD 16 [facility] [place] [address] 12/31/2019 Office Visit Gynecology Obstetrics Rosaura Perez, CNM 132 [facility] [place] [address] [phone] Health Maintenance Due Date Last Done Comments [...] For more information, please contact: [place] [phone]
--- OUTSIDE RECORDS SUMMARY | 2023-05-10 23:13 | External Medical Summary ---
Author Name Unknown Address [address] [facility]22 Phone Organization K01:[facility] [address] [id number] Laboratory Report Ordering Provider Test Date Status JANE FLORES 01/11/2019 13:29:00 Final Observation Date Value Abnormality Reference Status Albumin, Urine 01/11/2019 21:50 <1.20 Final Creat Ur-sCnc 01/11/2019 21:50 115 Final Microalbumin / Creatinine Ratio 01/11/2019 21:50 <10 <30 Final Performing Location [facility] [address] [facility] [address]
--- OUTSIDE RECORDS SUMMARY | 2023-05-10 23:14 | External Medical Summary ---
Author Name Unknown Address [address] [id number] Phone Organization K01:[facility] [address] [place] [id number] Laboratory Report Ordering Provider Test Date Status ODESSA GUSMAN 12/24/2018 14:36:00 Final Observation Date Value Abnormality Reference Status Vitamin B12 12/24/2018 22:09 [phone] F inal Performing Location [facility] [address] [facility] [address]
--- OUTSIDE RECORDS SUMMARY | 2023-05-10 23:14 | External Medical Summary ---
Author Name Unknown Address 132 [facility] [place] [address] Phone Organization K0G[place] [address] [facility] [place] [address] Laboratory Report Ordering Provider Test Date Status ODESSA GUSMAN 12/24/2018 14:36:00 Final Observation Date Value Abnormality Reference Status BUN 12/24/2018 15:54 13 6-20 Fin al Creatinine 12/24/2018 15:54 0.7 0.5-1.0 Fi nal Performing Location [facility] [address] [place] [address]
--- OUTSIDE RECORDS SUMMARY | 2023-05-10 23:14 | External Medical Summary ---
Author Name Unknown Address [address] [place] [address] Phone Organization K01:[facility] [address] [place] [id number] Laboratory Report Ordering Provider Test Date Status ODESSA GUSMAN 12/24/2018 14:36:00 Final Observation Date Value Abnormality Reference Status Folic Acid 12/24/2018 22:09 >20.0 >4.5 Fi nal Performing Location [facility] [address] [facility] [address]
--- OUTSIDE RECORDS SUMMARY | 2023-05-10 23:14 | External Medical Summary | Summary of Care ---
Author Name Unknown Organization [facility] Address [place] [address] Care Team Providers Care Cloth Spreader Screen Printing Name Role Phone RaulRajwinder Belen MORENO Primary Care Provider [phone] Reason for Visit * Reason Comments eRx-Medication Refill Encounter Details Date Type Department Care Team Description 11/29/2018 Refill [facility] [address] [place] [address] Brianne Pal PA-C [address], [place] [id number] Allergies Active Allergy Reactions Severity Noted Date Comments Penicillins Rash 02/12/2008 documented as of this encounter (statuses as of 11/30/2018) Medications Medication Sig Dispensed Refills Start Date [...] than 7.0% ([facility]) Use with Lantus Solostar at bedtime 30 Each 3 10/11/2017 Active nystatin 342070 UNIT/GM creamIndications:Can didal vulvovaginitis Apply topically to affected area 2 times a day. To affacted area for two weeks. 15 g 2 10/12/2017 Active Blood Glucose Monitoring Suppl ([employer] VERIO) w/Device KITIndications:Type 2 diabetes mellitus with hemoglobin A1c goal of less than 7.0% (HCC) Use up to 4 times a day E11.9 1 Kit 0 10/17/2017 Active Glucose Blood (Tao SalesTOUCH VERIO) STRP Use up to four times [...] Through urology 60 Tab 5 05/29/2018 Active HYDROcodone-acetamin ophen 5-325 mg per tab 5-325 MG per tabletIndications:Ce rebral palsy, unspecified type ([facility]) Take 1 Tab by mouth 2 times a day as needed for Pain, Mild. 30 Tab 0 07/13/2018 Active cyclobenzaprine (FLEXERIL) 10 MG Tablet TAKE [...] mouth daily. 34 Tab 5 11/06/2018 Active doxycycline hyclate 100 MG CapsuleIndications:C ellulitis of face,Psoriasis Take 1 Cap by mouth 2 times a day for 10 days. Until gone. 20 Cap 0 11/26/2018 9 Active betamethasone dipropionate (DIPROSONE) 0.05 % creamIndications:Johana lulitis of face,Psoriasis Apply topically to affected area 2 times a day. To affected area. 45 g 1 11/26/2018 Active cyclobenzaprine (FLEXERIL) 10 MG Tablet TAKE 1 TABLET ONCE DAILY AT BEDTIME 30 Tab 0 11/30/2018 Active documented as of this encounter (statuses as of 11/30/2018) Active Problems Problem Noted Date THAD on CPAP 12/26/2017 Cirrhosis of liver [...] as of this encounter (statuses as of 11/30/2018) Resolved Problems Problem Noted Date Resolved Date [...] pain 01/24/2012 01/17/2017 Genetic Sleep Disorder Research Other*[id number] 05/13/2011 04/07/2016 Obstructive sleep apnea 01/18/2011 12/27/19 [...] as of this encounter (statuses as of 11/30/2018) Immunizations Name Dates Previously Given Next Due [...] Telephone Encounter - Rajwinder Lara DO - 11/30/2018 7:16 AM EDT Signed Prescriptions: Disp Refills cyclobenzaprine (FLEXERIL) 10 MG Tablet 30 Tab 0 Sig: TAKE 1 TABLET ONCE DAILY AT BEDTIME Authorizing Provider: RAJWINDER LARA * Telephone Encounter - Kiesha Schmitt LPN - 11/29/2018 3:02 PM EDT Pending Prescriptions: Disp Refills cyclobenzaprine (FLEXERIL) 10 MG Tablet [*30 Tab 0 Sig: TAKE 1 TABLET ONCE DAILY AT BEDTIME * Telephone Encounter - Vivian Izquierdo LPN - 11/29/2018 10:05 AM EDT Pending Prescriptions: Disp Refills cyclobenzaprine (FLEXERIL) 10 MG Tablet [*30 Tab 0 Sig: TAKE 1 TABLET ONCE DAILY AT BEDTIME * Telephone Encounter - Vivian Izquierdo LPN - 11/29/2018 10:04 AM EDT Pending Prescriptions: Disp Refills cyclobenzaprine (FLEXERIL) 10 MG Tablet [*30 Tab 0 Sig: TAKE 1 TABLET ONCE DAILY AT BEDTIME Last Office Visit: 11/26/2018 Next Office Visit: 01/09/2019 Scheduled Provider(s): Rajwinder Lara DO Last date the medication was ordered: 10/11/18 Patient Active Problem List Diagnosis Code Spinal [...] Chronic pain syndrome G89.4 MEDICATION USE AGREEMENT [id number] History of Clostridium difficile colitis Z86.19 Cirrhosis of liver ([facility]) K74.60 THAD on CPAP G47.33, Z99.89 Labs: CREATININE(mg/dL) [place] Dt/Tm Resulted Value Status 11/02/18 1:52P 11/02/18 0.7 FINAL POTASSIUM-OUTSIDE LAB(MMOL/L) [place] Dt/Tm Resulted Value Status 08/24/18 08/27/18 4.1 FINAL TSH - OUTSIDE LAB(UIU/ML) [place] Dt/Tm Resulted Value Status 08/24/18 08/27/18 0.725 FINAL LDL (DIRECT MEASURE)(mg/dL) [place] Dt/Tm Resulted Value Status 10/11/17 1:18P 10/11/17 57 FINAL 5/24/17 11:19A 02/01/17 101 FINAL ALT(U/L) [place] Dt/Tm Resulted Value Status 02/13/18 3:27P 02/13/18 26 FINAL Hemoglobin AIC Results: HEMOGLOBIN, A1C(%) [place] Dt/Tm Resulted Value Status 09/21/18 11:23A 09/21/18 6.1* FINAL 02/13/18 3:27P 02/13/18 7.1* FINAL 10/11/17 1:18P 10/11/17 6.9* FINAL documented in this encounter Plan of Treatment Upcoming Encounters Date Type Specialty Care Team Description 12/21/2018 Office Visit Gynecology Obstetrics Sandra Meehan, BOOM [address] [place] [address] 12/24/2018 Nutrition Services Gastroenterology Melissa Omalley RDN [address] [place] [id number] 12/24/2018 Office Visit Gastroenterology Lyssa Stout CRNP [address] [place] [address] [phone] 01/09/2019 Office Visit Family Medicine Rajwinder Lara DO [address] [place] [address] 06/18/2019 Office Visit Optometry Jarett Schmitt, OD [address] [place] [address] Health Maintenance Due Date Last Done Comments DIABETES-FOOT EXAM 12/26/2018 12/26/2017, 0 03/22/2017, 06/07/2016, Additional history exists Yearly B-12 02/13/2019 02/13/2018 DIABETES-HGBA1C EVERY 6 MONTHS 03/21/2019 09/21/2018, 02/13/2018, 10/11/2017, Additional history exists BREAST CANCER SCREENING DISCUSSION YEARLY AGES 40-75 04/04/2019 04/04/2018, 01/18/2017, 01/17/2017 (Discussed), Additional history exists DIABETES-EYE EXAM 06/12/2019 06/12/2018, , 06/12/2018, Additional history exists DIABETES-URINE MICROALBUMIN EVERY 12 MONTHS 08/24/2019 08/24/2018, 07/19/2018, 06/16/2018, Additional history exists PAP SMEAR-EVERY 3 YRS,AGES 21-65 10/10/2019 10/10/2016, 07/02/2014, 04/16/2013, Additional history exists DTaP,Tdap,and Td Vaccines (3 [...] For more information, please contact: [place] [phone]
--- OUTSIDE RECORDS SUMMARY | 2023-05-10 23:14 | External Medical Summary ---
Author Name Unknown Address 132 [facility] [place] [address] Phone Organization K0G:[facility] [address] [facility] [place] [address] Laboratory Report Ordering Provider Test Date Status NASEEM,ODESSA CRESPO 12/24/2018 14:36:00 Final Observation Date Value Abnormality Reference Status PT 12/24/2018 15:25 13.8 11.5-14.6 Chago siddiqui INR 12/24/2018 15:25 1.03 0.81-1.11 Chago siddiqui Performing Location [facility] [address] [facility] [facility] [place] [address]
--- OUTSIDE RECORDS SUMMARY | 2023-05-10 23:14 | External Medical Summary | Summary of Care ---
Author Name Unknown Organization [facility] [place] [address] Care Team Providers Care Dietary Director Name Role Phone RaulRajwinder Belen MORENO Primary Care Provider Reason for Visit * Reason Comments PAP Left Without Being Seen Encounter Details Date Type Department Care Team Description 12/21/2018 Office Visit [facility] Gynecology/Obstetrics [address] [facility] [place] [address] Sandra Meehan CNM [address] [facility] [place] [address] [phone] Left without being seen* Allergies Active Allergy Reactions Severity Noted Date Comments Penicillins Rash 02/12/2008 documented as of this encounter (statuses as of 12/21/2018) Medications Medication Sig Dispensed Refills Start Date [...] bedtime 30 Each 3 10/11/2017 Active nystatin 382882 UNIT/GM creamIndications:Can didal vulvovaginitis Apply topically to affected area 2 times a day. To affacted area for two weeks. 15 g 2 10/12/2017 Active Blood Glucose Monitoring Suppl (BidRazorTOUCH VERIO) w/Device KITIndications:Type 2 diabetes mellitus with hemoglobin A1c goal of less than 7.0% (HCC) Use up to 4 times a day E11.9 1 Kit 0 10/17/2017 Active Glucose Blood (BidRazorTOUCH VERIO) STRP Use up to four times [...] MG per tabletIndications:Ce rebral palsy, unspecified type ([facility]) Take 1 Tab by mouth 2 [...] as of this encounter (statuses as of 12/21/2018) Active Problems Problem Noted Date Wheelchair dependent [...] as of this encounter (statuses as of 12/21/2018) Resolved Problems Problem Noted Date Resolved Date [...] pain 01/24/2012 01/17/2017 Genetic Sleep Disorder Research Other*[id number] 05/13/2011 04/07/2016 Obstructive sleep apnea 01/18/2011 12/27/19 [...] as of this encounter (statuses as of 12/21/2018) Immunizations Name Dates Previously Given Next Due [...] Vital Signs Vital Sign Reading Time Taken Blood Pressure - - Pulse - - Temperature - - Respiratory Rate - - Oxygen Saturation - - Inhaled Oxygen Concentration - - Weight 115.2 kg (254 lb) 12/21/2018 11: 37 AM EDT Height - - Body Mass Index 51.3 12/21/2018 11:37 AM EDT documented in this encounter Progress Notes * Sandra Meehan CNM - 12/21/2018 11:48 AM EDT Spoke to patient who told nurse that she didn't think she could do an exam today. Pt is wheelchair bound and has significant pain from multiple chronic conditions. Pt denies any further bleeding since episode last November. Pt reported she has bleeding with BMs due to hemorrhoids. Bleeding may have been from hemorrhoids. Pt not due for a pap this year and is doing her annual mammograms. Pt chooses to not proceed with exam today due to pain and immobility. Will wait until next year. Pt also told nurse that she recently fell getting in or out of vehicle. Patient left without being seen by the provider. documented in this encounter Nursing Notes * Pham Vyas LPN - 12/21/2018 11:36 AM EDT Chief Complaint Patient presents with PAP Patient identified Shaina Shaw by name and date of . Patient here for yearly exam. Complaints: None at this time Last pap: 10/10/16 - NEG Last Mammogram: 04/04/18 Last Dexa: n/a Last Colonoscopy: 10/04/16 Type of Contraception: n/a Pt here for chlamydia screen. no Have you heard about the Gardasil Vaccine? no Would you be interested in discussing this with your provider? no Does the patient have an advance directed? No, Advance Directive brochure offered, patient declined. [facility] is a way you can talk to your provider online through e-mail. May I activate it for you? IN PROCESS Do you need any refills while you are here? no Pham Vyas LPN 12/21/2018 11:36 AM documented in this encounter Plan of Treatment Upcoming Encounters Date Type Specialty Care Team Description 12/24/2018 Nutrition Services Gastroenterology Melissa Omalley RDN [address] [place] [address] [place] [address] 12/24/2018 Office Visit Gastroenterology Lyssa Stout CRNP [address] [facility] [place] [address] 01/09/2019 Office Visit Family Medicine Rajwinder Carter, DO [address] [place] [address] [phone] 06/18/2019 Office Visit Optometry Oskar Jaretttiffany Fritz, OD [address] [place] [address] [phone] 12/31/2019 Office Visit Gynecology Obstetrics Rosaura Perez, CNM [address] [place] [address] [phone] Health Maintenance Due Date Last Done Comments [...] as of this encounter Visit Diagnoses Diagnosis Left without being seen- Primary documented in this encounter Advance Directives Patient has advance care planning documents on file. For more information, please contact: [place] [phone]
--- OUTSIDE RECORDS SUMMARY | 2023-05-10 23:14 | External Medical Summary | Summary of Care ---
Author Name Unknown Organization [place] [address] Care Team Providers Care Groover Runner Name Role Phone JohnbrianRajwinder thacker Primary Care Provider [phone] Encounter Details Date Type Department Care Team Description 12/10/2018 Result Scan Unspecified Department <No scans attached> Allergies Active Allergy Reactions Severity Noted Date Comments Penicillins Rash 02/12/2008 documented as of this encounter (statuses as of 12/13/2018) Medications Medication Sig Dispensed Refills Start Date [...] bedtime 30 Each 3 10/11/2017 Active nystatin [id number] UNIT/GM creamIndications:Can didal vulvovaginitis Apply topically to affected area 2 times a day. To affacted area for two weeks. 15 g 2 10/12/2017 Active Blood Glucose Monitoring Suppl (Trippy VERIO) w/Device KITIndications:Type 2 diabetes mellitus with hemoglobin A1c goal of less than 7.0% (HCC) Use up to 4 times a day E11.9 1 Kit 0 10/17/2017 Active Glucose Blood (Clinician TherapeuticsTOUCH VERIO) STRP Use up to four times [...] MG per tabletIndications:Ce rebral palsy, unspecified type (HCC) Take 1 Tab by mouth 2 [...] as of this encounter (statuses as of 12/13/2018) Active Problems Problem Noted Date THAD on [...] as of this encounter (statuses as of 12/13/2018) Resolved Problems Problem Noted Date Resolved Date [...] pain 01/24/2012 01/17/2017 Genetic Sleep Disorder Research Other*[id number] 05/13/2011 04/07/2016 Obstructive sleep apnea 01/18/2011 12/27/19 [...] as of this encounter (statuses as of 12/13/2018) Immunizations Name Dates Previously Given Next Due [...] Description 12/21/2018 Office Visit Gynecology Obstetrics Sandra Meehan CNM [address] [facility] [place] [address] 12/24/2018 Nutrition Services Gastroenterology Melissa Omalley RDN [address] [facility] [address] [facility] [address] [place] [address] 12/24/2018 Office Visit Gastroenterology Lyssa Stout CRNP [address] [facility] [place] [address] [phone] 01/09/2019 Office Visit Family Medicine Rajwinder Carter DO [address] [place], [place] [address] [address] 06/18/2019 Office Visit Optometry Jarett Schmitt, OD [address] [facility] [place] [address] Health Maintenance Due [...] Date/Time Associated Diagnosis Comments OUTSIDE LAB RESULTS 12/10/2018 documented in this encounter Results * OUTSIDE LAB RESULTS (12/10/2018) Narrative Performed At documented in this encounter Advance Directives Patient has advance care planning documents on file. For more information, please contact: [place] [phone]
--- OUTSIDE RECORDS SUMMARY | 2023-05-10 23:14 | External Medical Summary | Summary of Care ---
Author Name Unknown Organization [place] [address] Care Team Providers Care Submarine Operator Name Role Phone RaulRajwinder Belen MORENO Primary Care Provider [phone] Reason for Visit * Reason Comments Weight Management Medical Management Encounter Details Date Type Department Care Team Description 12/24/2018 Nutrition Services Nutrition & Weight Management, [facility] [address] [facility] [place] [address] Melissa Omalley RDN [address] [place] [address] [place] [address] [phone] Obesity, morbid (more than 100 lbs over ideal weight or BMI > 40) ([facility])*; Type 2 diabetes mellitus with hemoglobin A1c goal of less than 7.0% ([facility]); HTN, goal below 140/90; Cirrhosis of liver ([facility]); Lymphedema; Dyslipidemia, goal LDL below 70; Acquired hypothyroidism Allergies Active Allergy Reactions Severity Noted Date Comments Penicillins Rash 02/12/2008 documented as of this encounter (statuses as of 12/24/2018) Medications Medication Sig Dispensed Refills Start Date [...] bedtime 30 Each 3 8 Active nystatin [id number] UNIT/GM creamIndications:Ca ndidal vulvovaginitis Apply topically to affected area 2 times a day. To affacted area for two weeks. 15 g 2 8 Active Blood Glucose Monitoring Suppl ([employer]) w/Device KITIndications:Type 2 diabetes mellitus with hemoglobin A1c goal of less than 7.0% (HCC) Use up to 4 times a day E11.9 1 Kit 0 8 Active Glucose Blood (Accipiter RadarUCH VERIO) STRP Use up to four times [...] at bedtime. 30 Tab 5 8 Active furosemide (LASIX) 20 MG TabletIndications:L ocalized edema,Venous stasis dermatitis of both lower extremities One pill by mouth once a day, as needed for edema 30 Tab 5 8 Active fexofenadine (BERNARDA) [...] AT BEDTIME 30 Tab 5 9 Active HYDROcodone-acetami nophen 5-325 mg per tab 5-325 MG per tabletIndications:C erebral palsy, unspecified type (HCC) Take 1 Tab by mouth 2 times a day as needed for Pain, Mild. 30 Tab 0 8 12/25/19 19 Discontinued documented as of this encounter (statuses as of 12/24/2018) Active Problems Problem Noted Date Wheelchair dependent [...] as of this encounter (statuses as of 12/24/2018) Resolved Problems Problem Noted Date Resolved Date [...] pain 01/24/2012 01/17/2017 Genetic Sleep Disorder Research Other*[id number] 05/13/2011 04/07/2016 Obstructive sleep apnea 01/18/2011 12/27/19 [...] as of this encounter (statuses as of 12/24/2018) Immunizations Name Dates Previously Given Next Due [...] Vital Sign Reading Time Taken Blood Pressure 128/74 12/24/2018 1:10 PM EDT Pulse 68 12/24/2018 1:10 PM EDT Temperature - - Respiratory Rate - - Oxygen Saturation - - Inhaled Oxygen Concentration - - Weight 118.1 kg (260 lb 6.4 oz) 019 1:10 PM EDT Height - - Body Mass Index 52.59 12/24/2018 1:10 PM EDT documented in this encounter Patient Instructions * Patient Instructions* Melissa Omalley RDN - 12/24/2018 1:43 PM EDT PATIENT GOALS: 1) Patient to continue a Low Fat Carbohydrate Controlled Diet. 2) Patient to add a low calorie [...] Progress Notes * Melissa Omalley RDN - 12/24/2018 1:15 PM EDT GI/NUTRITION CONSULT [facility] Patient was identified at visit by name and date. PATIENT: Shaina Shaw DATE: 12/24/18 NUTRITION ASSESSMENT Diagnosis Code for referral for [...] not take Lasix consistently for edema management. Patient planning on seeing primary MD on 01/09/19. Describes typical diet history/24 hr recall Breakfast: Oatmeal, waffles bowl of cereal, eggs sometimes scrapple with sugar free syrup Lunch: Frozen Meals such as Banquet Dinner: Spaghetti with Chicken or Noodles or Peas Snacks: Crackers and Cheese Drinks:Milk, Tea or water Restaurant meals: Burger or Roast Beef Sandwiches (Bread and the meat) Exercise: Patient just walking around the house but very limited. WT GOAL: Patient would like to lose 100 lbs half-way CURRENT WT: 260 lbs Ht: 4'11" BMI: 50 LAST VISIT WT: 254 lbs 09/24/18 Weight History: 245.6 lbs 07/16/18 259.9 lbs 04/23/18 WEIGHT CHANGES: . Weight increased 6 lbs since last visit 09/24/18 MNT: Calorie Controlled Diet, Consistent Carbohydrate Patient is interested in the following treatment options for obesity: medical management. BARRIERS TO LEARNING: None SPECIAL EDUCATION NEEDS: None LABS: Component Latest Ref Rng & Units 09/21/2018 HEMOGLOBIN, A1C 4.0 - 5.6 % 6.1 (H) EST AVG GLUCOSE <126 128 (H) PHYSICAL ACTIVITY:Light SUPPLEMENTS: Vitamin C PRIOR NUTRITION COUNSELING: No prior counseling DAILY ENERGY/NUTRIENT NEEDS:[id number] KCALS for wt loss DIET RECALL INDICATES: Larger portions Inadequate fruit and vegetable intake Possible higher sodium intake. KNOWLEDGE ASSESSMENT: adequate knowledge NUTRITION DIAGNOSIS Food and nutrition related knowledge deficit in relation to calorie intake exceeding calorie expenditure as evidenced by diagnosis of Obesity. NUTRITION INTERVENTION PATIENT GOALS: 1) Patient to continue a Low Fat Carbohydrate Controlled Diet. 2) Patient to add a low calorie [...] # given for future reference. 30 minutes returnl visit Melissa Omalley RDN documented in this encounter Nursing Notes * Alirio Corcoran LPN - 12/24/2018 1:03 PM EDT Pt verified identity by last name and date. Chief Complaint Patient presents with Weight Management Medical Management documented in this encounter Plan of Treatment Upcoming Encounters Date Type Specialty Care Team Description 01/09/2019 Office Visit [facility] Medicine [facility]inder Carter[facility] DO [address] [facility] [address] 02/05/2019 Nutrition Services Gastroenterology Melissa Omalley RDN [address] [place] [address] [facility] [place] [address] 02/22/2019 Procedure Only Endoscopy Janis Hatch DO [address] [place] [address] 02/22/2019 Procedure Only Endoscopy Janis Hatch, [address] [place] [address] 03/25/2019 Office Visit Gastroenterology Lyssa Stout CRNP [address] [place] [address] 06/18/2019 Office Visit Optometry Jarett Schmitt, OD [address] [place] [address] 12/31/2019 Office Visit Gynecology Obstetrics Rosaura Perez, CNM [address] [place] [address] [phone] Health Maintenance Due Date Last Done Comments [...] hypothyroidism documented in this encounter Advance Directives Patient has advance care planning documents on file. For more information, please contact: [place] [phone]
--- OUTSIDE RECORDS SUMMARY | 2023-05-10 23:14 | External Medical Summary | Summary of Care ---
Author Name Unknown Organization [facility] [place] [address] Care Team Providers Care Primary Health Organisation Manager Name Role Phone Rajwinder Carter DO Primary Care Provider Reason for Visit * Reason Comments Status Check Encounter Details Date Type Department Care Team Description 11/26/2018 Office Visit [facility] [address] [place] [address] Rajwinder Carter DO [address] [place] [address] [phone] Cellulitis of face*; Psoriasis; Abdominal pain, right upper quadrant; Type 2 diabetes mellitus with hemoglobin A1c goal of less than 7.0% ([facility]) Allergies Active Allergy Reactions Severity Noted Date Comments Penicillins Rash 02/12/2008 documented as of this encounter (statuses as of 11/26/2018) Medications Medication Sig Dispensed Refills Start Date [...] bedtime 30 Each 3 10/11/2017 Active nystatin 193469 UNIT/GM creamIndications:Can didal vulvovaginitis Apply topically to affected area 2 times a day. To affacted area for two weeks. 15 g 2 10/12/2017 Active Blood Glucose Monitoring Suppl (FiixTOUCH VERIO) w/Device KITIndications:Type 2 diabetes mellitus with hemoglobin A1c goal of less than 7.0% (HCC) Use up to 4 times a day E11.9 1 Kit 0 10/17/2017 Active Glucose Blood (FiixTOUCH VERIO) STRP Use up to four times [...] other meds) 30 Tab 11 05/18/2018 Active traZODone (DESYREL) 50 MG TabletIndications:Sl eep disturbances Take 1 Tab by mouth at bedtime. 30 Tab 5 05/18/2018 Active potassium chloride ER 10 MEQ [...] mouth daily. 30 Cap 5 05/18/2018 Active atorvaSTATin (LIPITOR) 40 MG TabletIndications:Dy slipidemia, goal LDL below 70 Take 1 Tab by mouth at bedtime. 30 Tab 5 05/18/2018 Active furosemide (LASIX) 20 MG TabletIndications:Lo calized edema,Venous stasis dermatitis of both lower extremities One pill by mouth once a day, as needed for edema 30 Tab 5 05/18/2018 Active fexofenadine (BERNARDA) 180 [...] affected area. 45 g 1 11/26/2018 Active documented as of this encounter (statuses as of 11/26/2018) Active Problems Problem Noted Date THAD on [...] as of this encounter (statuses as of 11/26/2018) Resolved Problems Problem Noted Date Resolved Date [...] pain 01/24/2012 01/17/2017 Genetic Sleep Disorder Research Other*[id number] 05/13/2011 04/07/2016 Obstructive sleep apnea 01/18/2011 12/27/19 [...] as of this encounter (statuses as of 11/26/2018) Immunizations Name Dates Previously Given Next Due [...] Vital Sign Reading Time Taken Blood Pressure 130/68 11/26/2018 3:12 PM EDT Pulse 80 11/26/2018 3:12 PM EDT Temperature 36.8 C (98.3 F) 11/26/2018 3 :12 PM EDT Respiratory Rate 18 11/26/2018 3:12 PM EDT Oxygen Saturation - - Inhaled Oxygen Concentration - - Weight - - Height - - Body Mass Index - - documented in this encounter Progress Notes * Rajwinder Carter, DO - 11/26/2018 3:33 PM EDT SUBJECTIVE: Chief Complaint Patient presents with Status Check HPI: Shaina Shaw is a 63 year old female who presents today for regular return. Pt states that shehas had sinus congestion and headaches for at least a week. She is blowing her nose. No sore throat. She is coughing some and coughs up some mucous. Pt states that she has a rash behind her left ear. She states that it itches. The skin will peel. It has been there for weeks. It is red in the area. They note that it will bleed sometimes. They havetried nystatin and an antibiotic cream with no relief. She notes no rash anywhere else. Pt continues to complain of some right sided belly pain. This has been an ongoing complaint with work-up. She has seen GI. She recently had an abdominal MRI. She has known hepatic cirrhosis. Pt notes that her blood sugars are probably ok. She has not been checking them regularly. Pt has one caregiver coming in twice a week. She notes that some of the issues in the home have improved as her 's niece is gone. This has helped her stress levels. PHM: Patient Active Problem List Diagnosis Code [...] over ideal weight or BMI > 40) ([facility]) E66.01 Dyslipidemia, goal LDL below 70 E78.5 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 R39.81 Acquired hypothyroidism E03.9 Chronic pain syndrome G89.4 MEDICATION USE AGREEMENT PG3518 History of Clostridium difficile colitis Z86.19 Cirrhosis of liver (HCC) K74.60 THAD on CPAP G47.33, Z99.89 Current Outpatient Medications Medication Sig Dispense Refill betamethasone dipropionate (DIPROSONE) 0.05 % cream Apply topically to affected area 2 times a day. To affected area. 45 g 1 doxycycline hyclate 100 MG Capsule Take 1 Cap by mouth 2 times a day for 10 days. Until gone. 20 Cap 0 Aspirin 81 MG Tablet Take 1 Tab [...] BY MOUTH AT BEDTIME 30 Tab 0 HYDROcodone-acetaminophen 5-325 mg per tab 5-325 MG per tablet Take 1 Tab by mouth 2 times a day asneeded for Pain, Mild. 30 Tab 0 oxybutynin (DITROPAN) 5 MG Tablet Take 1 Tab by mouth 2 times a day. Through urology 60 Tab 5 atorvaSTATin (LIPITOR) 40 MG Tablet Take 1 Tab by mouth at bedtime. 30 Tab 5 escitalopram (LEXAPRO) 20 MG Tablet Take 1 Tab by mouth daily. 30 Tab 5 fexofenadine (BERNARDA) 180 MG Tablet One pill by mouth once a day as needed for allergies 30 Tab 11 furosemide (LASIX) 20 MG Tablet One pill by mouth once a day, as needed for edema 30 Tab 5 gabapentin (NEURONTIN) 300 MG Capsule One pill in am, one midday, two in pm, 180 Cap 5 insulin glargine (LANTUS SOLOSTAR) 100 UNIT/ML SOPN Inject 24 units at bed time 5 Pre-filled Pen Syringe Dosing Unit 3 levothyroxine (LEVOXYL) 150 MCG Tablet Take 1 Tab by mouth daily. (at least 30 min prior to breakfast or other meds) 30 Tab 11 MetFORMIN (GLUCOPHAGE) 1000 MG Tablet Take 1 Tab by mouth 2 times a day. With food. 60 Tab 5 nadolol (CORGARD) 20 MG Tablet Take 1 Tab by mouth daily. 30 Tab 5 omeprazole (PRILOSEC) 20 MG CPDR Take 1 Cap by mouth daily. 30 Cap 5 potassium chloride ER 10 MEQ TBCR With food. Pt reports only taking once dailly. 60 Tab 5 tamsulosin (FLOMAX) 0.4 MG Capsule Take 1 Cap by mouth daily. Through urology 30 Cap 5 traZODone (DESYREL) 50 MG Tablet Take 1 Tab by mouth at bedtime. 30 Tab 5 vitamin c (ASCORBIC ACID) 500 MG Tablet Take 500 mg by mouth daily. Glucose Blood (NTE EnergyUCH VERIO) STRP Use up to four times a day as directed.DX:E11.9 400 Strip 3 Blood Glucose Monitoring Suppl (NTE EnergyUCH VERIO) w/Device KIT Use up to 4 times a day E11.9 1 Kit 0 nystatin 820773 UNIT/GM cream Apply topically to affected area [...] DIAGNOSTIC (RECTUM) 10/04/2016 normal bx, repeat 10 yrs/[facility] D[facility] SURG[facility] PROCEDURE NEC wisdom teeth x 4 DILATION AND CURETTAGE (D&C) EGD, FLEXIBLE, DIAGNOSTIC 10/04/2016 gastritis/[facility] EGD, FLEXIBLE, DIAGNOSTIC 01/11/2018 eso varices, retained food, repeat 1 yr/[facility] PELVIS/HIP JOINT SURGERY NEC teenager aid in walking REPAIR/GRAFT ACHILLES TENDON age 40 aid in walking Review of patient's allergies indicates: Allergen Reactions Pcn [Penicillins] Rash Family History Problem Relation Age of Onset Heart Disorder Father of [place] at age 61 Heart Disorder Mother of [place] age 72 Diabetes Father Cancer None Arthritis None Stroke None Heart Disorder Sister Mi at age 46 Hypertension Sister Mental Disorder None Family Status Relation Status Mo at age 70 heart dx Fa at age 60s heart dx, DM Son Alive Sis at age 2 days twin sister Sis Alive Sis Alive Bro Alive Fa (Not Specified) Mo (Not Specified) Fa (Not Specified) NONE (Not Specified) NONE (Not Specified) NONE (Not Specified) Sis (Not Specified) Sis (Not Specified) NONE (Not Specified) Social History Tobacco Use Smoking status: Never Smoker Smokeless tobacco: Never Used Substance Use Topics Alcohol use: No Comment: rare REVIEW OF SYSTEMS: Constitutional ROS: No change in weight, No weakness, No fatigue and No fevers, sweats, or chills Mouth/Throat ROS: No bleeding gums, No thrush or No sore throat Pulmonary ROS: No cough or sputum. No wheezing, No shortness of breath Cardiovascular ROS: No chest pain, No shortness of breath, No dyspnea on exertion, No orthopnea Gastrointestinal ROS: No abdominal pain, No change in bowel habits, No nausea, vomiting, diarrhea, or constipation Musculoskeletal/Extremities ROS: No pain, redness or swelling on the joints Skin/Integumentary ROS: As per HPI OBJECTIVE: BP 130/68[radial blood pressure[ | Pulse 80 | Temp (Src) 98.3 (Tympanic) | Resp 18 | Wt (0.000kg) PHYSICAL EXAM: General: alert, no distress and well nourished Head: Normocephalic, No masses, lesions, tenderness or abnormalities Heart: regular rate & rhythm, no murmurs and no gallops Lungs: chest symmetric with normal AP diameter, no chest deformities noted, no chest wall tenderness, lungs clear to auscultation Abdomen: abdomen soft, non-tender, normal bowel sounds and no masses or organomegaly Extremities: no joint deformities, effusion, or inflammation, trace to +1 pitting edema, no cyanosis Skin: skin color, texture, turgor are normal, rash consistent with psoriasis posterior ears- much worse on left, ASSESSMENT/PLAN: L03.211 Cellulitis of face (primary encounter diagnosis) L40.9 Psoriasis Plan: Pt will start doxycycline given areas that are open with surrounding erythema. She is to use betamethasone twice daily. No alcohol based wipes to the area. Recheck in 1 month. Medications: 1. Doxycycline hyclate 100 mg po caps Sig:Take 1 cap by mouth 2 times a day for 10 days. until gone. 2. Betamethasone dipropionate 0.05 % ex crea Sig:Apply topically to affected area 2 times a day. toaffected area. R10.11 Abdominal pain, right upper quadrant Plan: this has been ongoing for some time. She had recent MRI with no new or acute findings. She isfollowing with GI. No pain currently. Keep symptom diary. E11.9 Type 2 diabetes mellitus with hemoglobin a1c goal of less than 7.0% ([facility]) Plan: Pt will continue on current regimen. Has been well controlled. Follow-up: Recheck in 1 month Rajwinder Carter DO documented in this encounter Nursing Notes * Josselin Gaspar LPN - 11/26/2018 3:10 PM EDT The patient has been properly identified by confirmation of name and date of . Chief Complaint Patient presents with Status Check Last night had a sharp pain in right side and went across her abdomen Pain subsided about 10 minutes later Also c/o sinus headache that started a few days ago documented in this encounter Plan of Treatment Upcoming Encounters Date Type Specialty Care Team Description 12/21/2018 Office Visit Gynecology Obstetrics Sandra Meehan CNM [address] [place] [address] 12/24/2018 Nutrition Services Gastroenterology Melissa Omalley RDN [address] [place] [address] 12/24/2018 Office Visit [facility] Lyssa Stout, ZAK [address] [facility] [address] [phone] 01/09/2019 Office Visit [facility] Medicine [facility] [address] [facility] [address] [phone] 06/18/2019 Office Visit Optometry Jarett Schmtit, OD [address] [place] [address] Health Maintenance Due Date Last [...] this encounter Visit Diagnoses Diagnosis Cellulitis of face- Primary Cellulitis and abscess of face Psoriasis Other psoriasis Abdominal pain, right upper quadrant Type 2 diabetes mellitus with hemoglobin A1c goal of less than 7.0% (HCC) documented in this encounter Advance Directives Patient has advance care planning documents on file. For more information, please contact: [place] [phone]"
--- OUTSIDE RECORDS SUMMARY | 2023-05-10 23:14 | External Medical Summary ---
Author Name Unknown Address [address] [place] [address] Phone Organization K0G:[facility] [place] [address] [facility] [place] [address] Laboratory Report Ordering Provider Test Date Status ODESSA GUSMAN ZAK 12/24/2018 14:36:00 Final Observation Date Value Abnormality Reference Status WBC, Total 12/24/2018 14:55 3.93 Below low normal 4.00- 10.80 Final RBC 12/24/2018 14:55 3.21 Below low normal 3.85-5 .15 Final Hemoglobin 12/24/2018 14:55 8.7 Below low normal 12.0- 15.3 Final HCT 12/24/2018 14:55 28.6 Below low normal 36.0-4 5.2 Final MCV 12/24/2018 14:55 89.1 81.5-97.5 Fin al MCH 12/24/2018 14:55 27.1 27.0-34.0 Fin al MCHC 12/24/2018 14:55 30.4 Below low normal 32.0-3 6.0 Final RDW 12/24/2018 14:55 16.5 Above high normal 11.5- 15.5 Final Platelets 12/24/2018 14:55 96 Below low normal 140-40 0 Final MPV 12/24/2018 14:55 11.8 Above high normal 6.6-1 1.1 Final Segs 12/24/2018 14:55 57.0 40-75 Fin al Lymphs % 12/24/2018 14:55 25.7 18-42 Fin al Monos 12/24/2018 14:55 9.9 1-11 Fin al Eosinophils 12/24/2018 14:55 6.9 Above high normal 0-6 Final Basos 12/24/2018 14:55 0.5 0-2 Fin al Absolute Segs 12/24/2018 14:55 2.24 1.8-7.7 Final Lymphs, absolute 12/24/2018 14:55 1.01 1.0-4. 8 Final Monos, Abs 12/24/2018 14:55 0.39 0.0-1.1 Fi nal Eos, Abs 12/24/2018 14:55 0.27 0.0-0.7 Fin al Basos, Abs 12/24/2018 14:55 0.02 0.0-0.2 Fi nal Performing Location [address] [place] [address]
--- OUTSIDE RECORDS SUMMARY | 2023-05-10 23:14 | External Medical Summary | Summary of Care ---
Author Name Unknown Organization [facility] Address [place] [address] Care Team Providers Care Specialty Department Supervisor Name Role Phone RaulRajwinder Belen MORENO Primary Care Provider Reason for Visit * Reason Comments Test Results Encounter Details Date Type Department Care Team Description 01/22/2018 Telephone [facility] Gynecology/Obstetrics [address] [place] [address] Irene Mujica CRNP [address] [facility] [place] [address] [phone] Test Results Allergies Active Allergy Reactions Severity Noted Date Comments Penicillins Rash 02/12/2008 documented as of this encounter (statuses as of 12/11/2018) Medications Medication Sig Dispensed Refills Start Date [...] bedtime 30 Each 3 8 Active nystatin 515360 UNIT/GM creamIndications:Ca ndidal vulvovaginitis Apply topically to affected area 2 times a day. To affacted area for two weeks. 15 g 2 8 Active Blood Glucose Monitoring Suppl ([employer] VERIO) w/Device KITIndications:Type 2 diabetes mellitus with hemoglobin A1c goal of less than 7.0% ([facility]) Use up to 4 times a day E11.9 1 Kit 0 8 Active Glucose Blood (Ekaya.comTOUCH VERIO) STRP Use up to four times a day as directed.DX:E11 .9 400 Strip 3 8 Active ASPIRIN 81 MG PO TABS one tab by mouth daily 34 Tab 5 2 11/06/19 19 Discontinued BETAMETHASONE VALERATE 0.1 % EX CREAIndications:Ins ect bites,Dermatitis,Pr uritus apply to affected area twice daily, as needed 30 g 1 3 03/28/20 18 Discontinued OCEAN NASAL SPRAY 0.65 % NA SOLNIndications:All ergic rhinitis Two sprays in each nostril as needed for nasal dryness or congestion 1 Bottle 5 4 03/28/20 18 Discontinued Azelastine HCl (ASTELIN) 0.1 % nasal sprayIndications:Ot algia, bilateral,Dysfuncti on of Eustachian tube, bilateral,Chronic rhinitis Administer 2 Sprays into each nostril 2 times a day. 1 Bottle 11 6 03/28/20 18 Discontinued nystatin (NYSTOP) powderIndications:C utaneous candidiasis Apply topically to affected area 3 times a day. Sprinkle over affected area. 1 Bottle 1 6 03/28/20 18 Discontinued Glucosamine-Chondro itin (GLUCOSAMINE CHONDR COMPLEX) 500-400 MG CapsuleIndications: Primary osteoarthritis of knees, bilateral Take 1 Cap by mouth 3 times a day. 1 Cap 0 6 03/28/20 18 Discontinued albuterol (PROVENTIL HFA) 108 (90 BASE) MCG/ACT inhalerIndications: Bronchitis, complicated Inhale 2 Puffs by mouth 4 times a day. 1 Inhaler 1 6 03/28/20 18 Discontinued Vitamin D, Ergocalciferol, 03467 UNITS CapsuleIndications: Vitamin D deficiency 1capsule every other week 8 Cap 6 7 03/28/20 18 Discontinued Blood Glucose Monitoring Suppl (Bl[employer] VERIO) W/DEVICE KITIndications:Type 2 diabetes mellitus with hemoglobin A1c goal of less than 7.0% (HCC) Use as directed. Use daily to check blood sugars DX:E11.9 1 Kit 0 7 03/28/20 18 Discontinued Glucose Blood (Ekaya.comTOUCH ULTRA BLUE) STRPIndications:Typ e 2 diabetes mellitus with hemoglobin A1c goal of less than 7.0% (HCC) Use as directed 4 times a day as needed for Other (Use daily to check blood sugars DX:E11.9). Use up to four times a day as directed 100 Strip 11 7 02/14/20 18 Discontinued Ekaya.comTOUCH ULTRASOFT LANCETS MISCIndications:Typ e 2 diabetes mellitus with hemoglobin A1c goal of less than 7.0% (HCC) Use as directed 4 times a day as needed (Use daily to check blood sugars DX:E11.9). Use up to four times a day as directed 1 Box Dosing Unit 11 7 03/28/20 18 Discontinued busPIRone (BUSPAR) 10 MG Tablet 0 7 03/28/20 18 Discontinued escitalopram (LEXAPRO) 10 MG Tablet Take 15 Tabs by mouth daily. 0 7 02/14/20 18 Discontinued furosemide (LASIX) 20 MG TabletIndications:E abelardo,Stasis dermatitis One pill by mouth once a day, as needed for edema 30 Tab 5 7 05/18/20 18 Discontinued fexofenadine (BERNARDA) 180 MG TabletIndications:A llergic conjunctivitis of both eyes,Allergic rhinitis One pill by mouth once a day as needed for allergies 30 Tab 11 7 05/18/20 18 Discontinued atorvaSTATin (LIPITOR) 40 MG TabletIndications:D yslipidemia, goal LDL below 70 Take 1 Tab by mouth at bedtime. 90 Tab 1 7 05/18/20 18 Discontinued atenolol (TENORMIN) 25 MG Tablet Take 1 Tab by mouth at bedtime. 30 Tab 5 8 04/11/20 18 Discontinued levothyroxine (LEVOXYL) 88 MCG Tablet Take 1 Tab by mouth daily. (at least 30 min prior to breakfast or other meds) 30 Tab 5 8 02/24/20 18 Discontinued gabapentin (NEURONTIN) 300 MG Capsule One pill in am, one midday, two in pm, as directed, increase up to 2 capsules 3 times daily 180 Cap 5 8 05/18/20 18 Discontinued PredniSONE (DELTASONE) 10 MG TabletIndications:B ronchitis, complicated Take 5 tabs for 2 days, 4 tabs for 2 days, 3 tabs for 2 days, 2 tabs for 2 days 1 tab for 2 days 30 Tab 0 8 02/14/20 18 Discontinued HYDROcodone-homatro pine (HYCODAN) 5-1.5 MG/5ML SYRPIndications:Sle ep disturbance Take 5 mL by mouth at bedtime as needed for Cough. 120 mL 0 8 02/14/20 18 Discontinued Dulaglutide (TRULICITY) 0.75 MG/0.5ML SOPN Inject 1 syringeful once weekly 4 Pre-filled Pen Syringe Dosing Unit 5 8 03/12/20 18 Discontinued MetFORMIN (GLUCOPHAGE) 1000 MG TabletIndications:T ype 2 diabetes mellitus with hemoglobin A1c goal of less than 7.0% ([facility]) Take 1 Tab by mouth 2 times a day. With food. 60 Tab 5 8 05/18/20 18 Discontinued omeprazole (PRILOSEC) 20 MG CPDR Take 1 Cap by mouth daily. 90 Cap 1 8 05/18/20 18 Discontinued potassium chloride ER 10 MEQ TBCRIndications:Hyp okalemia Take 1 Tab by mouth 2 times a day. With food. 60 Tab 5 8 02/14/20 18 Discontinued traZODone (DESYREL) 50 MG TabletIndications:S leep disturbances Take 1 Tab by mouth at bedtime. 30 Tab 5 8 03/28/20 18 Discontinued cyclobenzaprine (FLEXERIL) 10 MG Tablet Take 1 Tab by mouth at bedtime. 30 Tab 0 8 02/16/20 18 Discontinued levothyroxine (LEVOXYL) 100 MCG Tablet Take 1 Tab by mouth daily. (at least 30 min prior to breakfast or other meds) 30 Tab 5 8 02/24/20 18 Discontinued Hydrocodone-Acetami nophen (NORCO) 10-325 MG per tabletIndications:S jennifer stenosis of lumbar region without neurogenic claudication,DDD (degenerative disc disease), lumbar,MEDICATION USE AGREEMENT Take 1 Tab by mouth 2 times a day as needed for Pain. 60 Tab 0 8 02/14/20 18 Discontinued documented as of this encounter (statuses as of 12/11/2018) Active Problems Problem Noted Date THAD on [...] as of this encounter (statuses as of 12/11/2018) Resolved Problems Problem Noted Date Resolved Date [...] pain 01/24/2012 01/17/2017 Genetic Sleep Disorder Research Other*[id number] 05/13/2011 04/07/2016 Obstructive sleep apnea 01/18/2011 12/27/19 [...] as of this encounter (statuses as of 12/11/2018) Immunizations Name Dates Previously Given Next Due Pneumococcal Polysaccharide PPV23 (Pneumovax) 06/01/2010 Seasonal Influenza, Quadriva lent, No Preserve, 6 Mons & Above, IM 07/10/2017 Seasonal Influenza, Quadriva lent, No Preserve, IM [...] Miscellaneous Notes * Telephone Encounter - Marie Angela RN - 01/23/2018 9:24 AM EDT left message for patient to call office * Telephone Encounter - Irene Mujica CRNP - 01/22/2018 9:47 AM EDT Please notify pt that pelvic u/s normal, lining of uterus is thin, which is expected when postmenopausal. No abnormalities seen. Call with any further bleeding. documented in this encounter Plan of Treatment Upcoming Encounters Date Type Specialty Care Team Description 12/21/2018 Office Visit Gynecology Obstetrics Sandra Meehan, CNM [address] [place] [id number] 12/24/2018 Nutrition Services Gastroenterology Melissa Omalley, RDN [address] [place] [id number] 12/24/2018 Office Visit [facility]enterology [facility] Stout CR[facility] [address] [facility] [address] [phone] 01/09/2019 Office Visit Family Medicine Rajwinder Carter DO [address] [place] [address] 06/18/2019 Office Visit Optometry Jarett Schmitt, OD [address] [place] [address] Health Maintenance Due Date Last [...] For more information, please contact: [place] [phone]
--- OUTSIDE RECORDS SUMMARY | 2023-05-10 23:14 | External Medical Summary | Summary of Care ---
Author Name Unknown Organization [place] [address] Care Team Providers Care Learning Specialist Name Role Phone RaulRajwinder Belen MORENO Primary Care Provider Reason for Visit * Reason Comments Weight Management Medical Management Encounter Details Date Type Department Care Team Description 12/24/2018 Nutrition Services Nutrition & Weight Management, [facility] [address] [facility] [place] [address] Melissa Omalley RDN [address] [place] [address] [phone] Obesity, morbid (more than 100 lbs over ideal weight or BMI > 40) ([facility])*; Type 2 diabetes mellitus with hemoglobin A1c goal of less than 7.0% ([facility]); HTN, goal below 140/90; Cirrhosis of liver ([facility]); Lymphedema; Dyslipidemia, goal LDL below 70; Acquired [...] bedtime 30 Each 3 8 Active nystatin 108472 UNIT/GM creamIndications:Ca ndidal vulvovaginitis Apply topically to affected area 2 times a day. To affacted area for two weeks. 15 g 2 8 Active Blood Glucose Monitoring Suppl ([employer]) w/Device KITIndications:Type 2 diabetes mellitus with hemoglobin A1c goal of less than 7.0% (HCC) Use up to 4 times a day E11.9 1 Kit 0 8 Active Glucose Blood (On-Q-ityUCH VERIO) STRP Use up to four times [...] pain 01/24/2012 01/17/2017 Genetic Sleep Disorder Research Other*[id number] 05/13/2011 04/07/2016 Obstructive sleep apnea 01/18/2011 12/27/19 [...] - 12/24/2018 1:15 PM EDT GI/NUTRITION CONSULT [facility] Patient was identified at visit [...] Patient would like to lose 100 lbs fci CURRENT WT: 260 lbs Ht: 4'11" BMI: [...] NUTRITION COUNSELING: No prior counseling DAILY ENERGY/NUTRIENT NEEDS:[id number] KCALS for wt loss DIET RECALL INDICATES: [...] Family Medicine Rajwinder Carter, DO [address] [place] [address] [phone] 06/18/2019 Office Visit Optometry Jarett Schmitt, OD [address] [place] [address] [phone] 12/31/2019 Office Visit Gynecology Obstetrics Rosaura Perez, CNM [address] [place] [address] [phone] Health Maintenance Due Date Last Done Comments [...] For more information, please contact: [place] [phone]
--- OUTSIDE RECORDS SUMMARY | 2023-05-10 23:14 | External Medical Summary ---
Author Name Unknown Address [address] [id number] Phone Organization K01:[facility] [address] [id number] Laboratory Report Ordering Provider Test Date Status ODESSA GUSMAN 12/24/2018 14:36:00 Final Observation Date Value Abnormality Reference Status Ferritin 12/24/2018 22:09 9.3 Below low normal 13-150 Final Performing Location [place] [address] [address] [facility] [address]
--- OUTSIDE RECORDS SUMMARY | 2023-05-10 23:14 | External Medical Summary | Summary of Care ---
Author Name Unknown Organization [place] [address] Care Team Providers Care Screen Handler Name Role Phone Rajwinder Carter DO Primary Care Provider Reason for Visit * Reason Comments eRx-Medication Refill Encounter Details Date Type Department Care Team Description 11/29/2018 Refill [facility] [address] [place] [address] Rajwinder Carter DO [address] [place] [address] [phone] Sleep disturbances Allergies Active Allergy Reactions Severity Noted Date Comments Penicillins Rash 02/12/2008 documented as of this encounter (statuses as of 11/29/2018) Medications Medication Sig Dispensed Refills Start Date [...] bedtime 30 Each 3 8 Active nystatin 033445 UNIT/GM creamIndications:Ca ndidal vulvovaginitis Apply topically to affected area 2 times a day. To affacted area for two weeks. 15 g 2 8 Active Blood Glucose Monitoring Suppl ([employer] VER[employer]) w/Device KITIndications:Type 2 diabetes mellitus with hemoglobin A1c goal of less than 7.0% (HCC) Use up to 4 times a day E11.9 1 Kit 0 8 Active Glucose Blood ([employer]) STRP Use up to four times [...] 1 Cap by mouth daily. 30 Cap 8 Active atorvaSTATin (LIPITOR) 40 MG TabletIndications:D [...] Through urology 60 Tab 5 8 Active HYDROcodone-acetami nophen 5-325 mg per tab 5-325 MG per tabletIndications:C erebral palsy, unspecified type (HCC) Take 1 Tab by mouth 2 times a day as needed for Pain, Mild. 30 Tab 0 8 Active cyclobenzaprine (FLEXERIL) 10 MG Tablet [...] mouth daily. 34 Tab 5 9 Active doxycycline hyclate 100 MG CapsuleIndications: Cellulitis of face,Psoriasis Take 1 Cap by mouth 2 times a day for 10 days. Until gone. 20 Cap 0 9 12/07/19 19 Active betamethasone dipropionate (DIPROSONE) 0.05 % creamIndications:Ce llulitis of face,Psoriasis Apply topically to affected area 2 times a day. To affected area. 45 g 1 9 Active traZODone (DESYREL) 50 MG TabletIndications:S leep disturbances TAKE 1 TABLET BY MOUTH AT BEDTIME 30 Tab 5 9 Active traZODone (DESYREL) 50 MG TabletIndications:S leep disturbances Take 1 Tab by mouth at bedtime. 30 Tab 5 8 11/30/19 19 Discontinued documented as of this encounter (statuses as of 11/29/2018) Active Problems Problem Noted Date THAD on [...] as of this encounter (statuses as of 11/29/2018) Resolved Problems Problem Noted Date Resolved Date [...] pain 01/24/2012 01/17/2017 Genetic Sleep Disorder Research Other*[id number] 05/13/2011 04/07/2016 Obstructive sleep apnea 01/18/2011 12/27/19 [...] as of this encounter (statuses as of 11/29/2018) Immunizations Name Dates Previously Given Next Due [...] Miscellaneous Notes * Telephone Encounter - Brianne Lowery PA-C - 11/29/2018 4:34 PM EDT Signed Prescriptions: Disp Refills traZODone (DESYREL) 50 MG Tablet 30 Tab 5 Sig: TAKE 1 TABLET BY MOUTH AT BEDTIME Authorizing Provider: BRIANNE LOWERY * Telephone Encounter - Kiesha Schmitt LPN - 11/29/2018 2:55 PM EDT Pending Prescriptions: Disp Refills traZODone (DESYREL) 50 MG Tablet [Pharmac*30 Tab 5 Sig: TAKE 1 TABLET BY MOUTH AT BEDTIME * Telephone Encounter - Vivian Izquierdo LPN - 11/29/2018 10:06 AM EDT Pending Prescriptions: Disp Refills traZODone (DESYREL) 50 MG Tablet [Pharmac*30 Tab 5 Sig: TAKE 1 TABLET BY MOUTH AT BEDTIME * Telephone Encounter - Vivian Izquierdo LPN - 11/29/2018 10:06 AM EDT Pending Prescriptions: Disp Refills traZODone (DESYREL) 50 MG Tablet [Pharmac*30 Tab 5 Sig: TAKE 1 TABLET BY MOUTH AT BEDTIME Last Office Visit: 11/26/2018 Next Office Visit: 01/09/2019 Scheduled Provider(s): Rajwinder Carter DO Last date the medication was ordered: 05/18/18 Patient Active Problem List Diagnosis Code Spinal [...] Chronic pain syndrome G89.4 MEDICATION USE AGREEMENT [id number] History of Clostridium difficile colitis Z86.19 Cirrhosis of liver ([facility]) K74.60 THAD on CPAP G47.33, Z99.89 Labs: CREATININE(mg/dL) Lucio Dt/Tm Resulted Value Status 11/02/18 1:52P 11/02/18 0.7 FINAL POTASSIUM-OUTSIDE LAB(MMOL/L) Lucio Dt/Tm Resulted Value Status 08/24/18 08/27/18 4.1 FINAL TSH - OUTSIDE LAB(UIU/ML) Lucio Dt/Tm Resulted Value Status 08/24/18 08/27/18 0.725 FINAL LDL (DIRECT MEASURE)(mg/dL) Lucio Dt/Tm Resulted Value Status 10/11/17 1:18P 10/11/17 57 FINAL 02/01/17 11:19A 02/01/17 101 FINAL ALT(U/L) Lucio Dt/Tm [...] Visit Gynecology Obstetrics Sandra Meehan CNM [address] [place] [address] 12/24/2018 Nutrition Services Gastroenterology Melissa Omalley RDN [address] [facility] [address] [place] [address] 12/24/2018 Office Visit Gastroenterology Lyssa Stout CRNP [address] [facility] [place] [address] [phone] 01/09/2019 Office Visit Family Medicine Rajwinder Carter DO [address] [place] [address] [phone] 06/18/2019 Office Visit Optometry OskarJarett burnett Lam, OD [address] [facility] [place] [address] Health Maintenance Due [...] unspecified documented in this encounter Advance Directives Patient has advance care planning documents on file. For more information, please contact: [place] [phone]
--- OUTSIDE RECORDS SUMMARY | 2023-05-10 23:14 | External Medical Summary ---
Author Name Unknown Address [facility] [address] [phone] Phone Organization K01:[facility] [address] [id number] Laboratory Report Ordering Provider Test Date Status VALENTINE GUSMANHON CRESPO 12/24/2018 14:36:00 Final Observation Date Value Abnormality Reference Status Iron 12/24/2018 21:26 34 33-151 Fin al Iron-binding capacity 12/24/2018 21:26 410 2 50-425 Final Transferrin Sat % 12/24/2018 21:26 8 Below low nitesh l 15-55 Final Performing Location [facility] [address] [facility] [address]
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
--- OUTSIDE RECORDS SUMMARY | 2023-05-10 23:15 | External Medical Summary ---
Author Name Unknown Address [address] [phone] Phone Organization K01:[facility] [address] [id number] Laboratory Report Ordering Provider Test Date Status ODESSA GUSMAN 11/02/2018 13:52:00 Final Observation Date Value Abnormality Reference Status BUN 11/02/2018 22:43 12 6-20 Fin al Performing Location [facility] [address] [id number]
--- OUTSIDE RECORDS SUMMARY | 2023-05-10 23:15 | External Medical Summary | Summary of Care ---
Author Name Unknown Organization [place] [address] Care Team Providers Care Box Maker Paperboard Name Role Phone ArabellaRajwinder thacker Primary Care Provider Reason for Visit * Reason Comments Medication Administration Medical Manage ment Encounter Details Date Type Department Care Team Description 09/24/2018 Nutrition Services Nutrition & Weight Management, [facility] [address] [facility] [place] [address] Melissa Omalley RDN [address] [place] [address] Obesity, morbid (more than 100 lbs over ideal weight or BMI > 40) (HCC)*; Type 2 diabetes mellitus with hemoglobin A1c goal of less than 7.0% (HCC); HTN, goal below 140/90; Cirrhosis of liver (HCC); Lymphedema; Dyslipidemia, goal LDL below 70; Acquired hypothyroidism Allergies Active Allergy Reactions Severity Noted Date Comments Penicillins Rash 02/12/2008 as of this encounter Medications Medication Sig Dispensed Refills Start Date End Date Status NEBULIZER DEVIIndications:Slee p apnea,Other dyspnea and respiratory abnormality,Other specified infantile cerebral palsy as directed 1 0 03/24/2008 Active ASPIRIN 81 MG PO TABS one tab by mouth daily 34 Tab 5 05/25/2012 Active CENTRUM SILVER PO TABS 1 tab [...] bedtime 30 Each 3 10/11/2017 Active nystatin 316946 UNIT/GM creamIndications:Can didal vulvovaginitis Apply topically to affected area 2 times a day. To affacted area for two weeks. 15 g 2 10/12/2017 Active Blood Glucose Monitoring Suppl (IntuitIO) w/Device KITIndications:Type 2 diabetes mellitus with hemoglobin A1c goal of less than 7.0% (HCC) Use up to 4 times a day E11.9 1 Kit 0 10/17/2017 Active Glucose Blood (Ambow EducationTOUCH VERIO) STRP Use up to four times [...] AT BEDTIME 30 Tab 0 08/03/2018 Active cyclobenzaprine (FLEXERIL) 10 MG Tablet TAKE 1 TABLET BY MOUTH AT BEDTIME 30 Tab 0 09/12/2018 Active Dulaglutide (TRULICITY) 1.5 MG/0.5ML SOPNIndications:Type 2 diabetes mellitus with hemoglobin A1c goal of less than 7.0% (HCC) Inject 1 syringeful once weekly 4 Pre-filled Pen Syringe Dosing Unit 5 09/21/2018 Active BD PEN NEEDLE MINI U/F 31G X 5 MMIndications:Type 2 diabetes mellitus with hemoglobin A1c goal of less than 7.0% (HCC) Use with Basaglar at bedtime. 30 Each 11 09/21/2018 Active as of this encounter Active Problems Problem Noted Date THAD on [...] disease), lumbar Dyslipidemia, goal LDL below 70 as of this encounter Resolved Problems Problem Noted Date Resolved Date [...] pain 01/24/2012 01/17/2017 Genetic Sleep Disorder Research Other*[id number] 05/13/2011 04/07/2016 Obstructive sleep apnea 01/18/2011 12/27/19 [...] OF LUMBAR SPINE 09/24/2007 06/07/2016 Prediabetes 10/28/2013 as of this encounter Immunizations Name Dates Previously Given Next Due [...] older)(Adacel) 05/26/2008 Varicella Zoster Vaccine (Adult) 12/09/2015 as of this encounter Social History Tobacco Use Types Packs/Day Years Used Date Never Smoker Smokeless Tobacco: Never Used Alcohol Use Drinks/Week oz/Week Comments No rare Sex Assigned at Date Recorded Not on file Job Start Date Occupation Industry Not on file Not on file Not on file Travel History Travel Start Travel End as of this encounter Last Filed Vital Signs Vital Sign Reading Time Taken Blood Pressure 128/64 09/24/2018 1:16 PM EST Pulse 76 09/24/2018 1:16 PM EST Temperature - - Respiratory Rate - - Oxygen Saturation - - Inhaled Oxygen Concentration - - Weight 115.2 kg (254 lb) 09/24/2018 1:1 6 PM EST Height - - Body Mass Index 51.3 09/24/2018 1:16 PM EST in this encounter Patient Instructions * Patient Instructions* Melissa Omalley RDN - 09/24/2018 1:56 PM EST PATIENT GOALS: 1) Patient to continue a Low Fat Portion Controlled Diet. 2) Patient to get back on track with recording food intake using manual food diaries. 3) Patient to do chair exercise as tolerated 2-3 times a week. 4) Patient to continue to zone in on following a Low Sodium Diet. in this encounter Progress Notes * Melissa Omalley, RDN - 09/24/2018 1:40 PM EST GI/NUTRITION CONSULT [facility] Patient was identified at visit by name and date. PATIENT: Shaina Shaw DATE:09/24/18 NUTRITION ASSESSMENT Diagnosis Code for referral for [...] ready to bet back on track. Patient was just recently in the group home for awhile but is ready to restart her manual food diaries again. Describes typical diet history/24 hr recall Breakfast: Protein Drink or sugar free oatmeal or 2 eggs with lam with toast Lunch: 12:00 or 1:00 pm Soup or [place] Dinner:Breaded Chicken with Macaroni and Cheese Snacks: Low Fat Ice Cream or Chips measured out in a bowl Drinks: Diet Tea, 2% Milk Water, 2 % Milk, Diet Tea, Glucerna once in awhile when not so hungry. Restaurant meals: rare WT GOAL: Patient would like to lose 100 lbs longterm CURRENT WT: 254 lbs Ht: 4'" BMI: 50 LAST VISIT WT: 245.611 259.9 lbs 04/23/18 WEIGHT CHANGES: . Weight increased 8.4 lbs since last visit 07/16/18 MNT: Calorie Controlled Diet, Consistent Carbohydrate Patient is interested in the following treatment options for obesity: medical management. BARRIERS TO LEARNING: None SPECIAL EDUCATION NEEDS: None LABS: Component Latest Ref Rng & Units 09/21/2018 HEMOGLOBIN, A1C 4.0 - 5.6 % 6.1 (H) EST AVG GLUCOSE <126 128 (H) PHYSICAL ACTIVITY:Light (Patient is wheel chair bound but is able to do exercises out of a chair and on her bed) SUPPLEMENTS: Vitamin C PRIOR NUTRITION COUNSELING: No prior counseling DAILY ENERGY/NUTRIENT NEEDS:[phone] KCALS for wt loss DIET RECALL INDICATES: Larger portions Inadequate fruit and vegetable intake Possible higher sodium intake. KNOWLEDGE ASSESSMENT: adequate knowledge NUTRITION DIAGNOSIS Food and nutrition related knowledge deficit in relation to calorie intake exceeding calorie expenditure as evidenced by diagnosis of Obesity. NUTRITION INTERVENTION PATIENT GOALS: 1) Patient to continue a Low Fat Portion Controlled Diet. 2) Patient to get back on track with recording food intake using manual food diaries. 3) Patient to do chair exercise as tolerated 2-3 times a week. 4) Patient to continue to zone in on following a Low Sodium Diet. EXPECTED OUTCOMES: Demonstrated interest in learning. Expect compliance with diet recommendations. PLAN: Patient scheduled to return in one month; dietitian phone # given for future reference. 60 Minutes Initial visit Melissa Omalley RDN in this encounter Nursing Notes * Alirio Corcoran LPN - 09/24/2018 1:17 PM EST Pt verified identity by last name and date. Chief Complaint Patient presents with Medication Administration Medical Management in this encounter Plan of Treatment Upcoming Encounters Date Type Specialty Care Team Description 09/28/2018 Pharmacy Pharmacy [place], [facility] [address] [facility] [address] [phone] 10/02/2018 Office Visit Sleep Disorders Lanette Fields CRNP [address] [facility] [place] [address] [phone] 11/05/2018 Imaging Radiology 11/26/2018 Office Visit Family Medicine Rajwinder Carter DO [address] [place] [address] [phone] 12/19/2018 Office Visit Gynecology Obstetrics Irene Mujica CRNP [address] [place] [address] [phone] 12/24/2018 Nutrition Services Gastroenterology Melissa Omalley RDN [address] [facility] [address] [place] [address] [phone] 12/24/2018 Office Visit Gastroenterology Lyssa Stout, ZAK [address] [facility] [place] [address] [phone] 06/18/2019 Office Visit Optometry OskarJarett burnett Lam, OD [address] [facility] [place] [address] Health Maintenance Due Date Last Done Comments DIABETES-FOOT EXAM 12/26/2018 12/26/2017, 0 03/22/2017, 06/07/2016, Additional history exists Yearly B-12 02/13/2019 02/13/2018 DIABETES-HGBA1C EVERY 6 MONTHS 03/21/2019 0 09/21/2018, 02/13/2018, 10/11/2017, Additional history exists BREAST CANCER SCREENING DISC USSION YEARLY AGES 40-75 04/04/2019 04/04/2018, 01/18/2017, 01/17/2017 (Discussed), Additional history exists DIABETES-EYE EXAM 06/12/2019 06/12/2018, , 06/12/2018, Additional history exists DIABETES-URINE MICROALBUMIN EVERY 12 MONTHS 08/24/2019 08/24/2018, 07/19/2018, 06/16/2018, Additional history exists PAP SMEAR-EVERY 3 YRS,AGES 21-65 10/10/2019 10/10/2016, 07/02/2014, 04/16/2013, Additional history exists DTaP,Tdap,and Td Vaccines (3 - Td) 05/01/20272016, 05/26/2008 PNEUMOCOCCAL 19-64 MEDIUM RISK Completed 06/01/2010 Influenza Vaccine (FLU shot) Completed 01/2018, 07/10/2017, 06/07/2016, Additional history exists as of this encounter Implants Not on fileas of this encounter Visit Diagnoses Diagnosis Obesity, [...] and unspecified hyperlipidemia Acquired hypothyroidism Unspecified hypothyroidism in this encounter Advance Directives Patient has advance care planning documents on file. For more information, please contact: [place] [phone]
--- OUTSIDE RECORDS SUMMARY | 2023-05-10 23:15 | External Medical Summary | Summary of Care ---
Author Name Unknown Organization [place] [address] Care Team Providers Care Patrol Mother Name Role Phone Rajwinder Carter DO Primary Care Provider Unava ilable Encounter Details Date Type Department Care Team Description 10/15/2018 Scan Encounter Unspecified Department <No scans attached> Allergies Active Allergy Reactions Severity Noted Date Comments Penicillins Rash 02/12/2008 documented as of this encounter (statuses as of 10/17/2018) Medications Medication Sig Dispensed Refills Start Date [...] bedtime 30 Each 3 10/11/2017 Active nystatin 264122 UNIT/GM creamIndications:Can didal vulvovaginitis Apply topically to affected area 2 times a day. To affacted area for two weeks. 15 g 2 10/12/2017 Active Blood Glucose Monitoring Suppl (BracletTOUCH VERIO) w/Device KITIndications:Type 2 diabetes mellitus with [...] AT BEDTIME 30 Tab 0 10/11/2018 Active documented as of this encounter (statuses as of 10/17/2018) Active Problems Problem Noted Date THAD on [...] as of this encounter (statuses as of 10/17/2018) Resolved Problems Problem Noted Date Resolved Date [...] pain 01/24/2012 01/17/2017 Genetic Sleep Disorder Research Other*[id number] 05/13/2011 04/07/2016 Obstructive sleep apnea 01/18/2011 12/27/19 [...] as of this encounter (statuses as of 10/17/2018) Immunizations Name Dates Previously Given Next Due [...] Encounters Date Type Specialty Care Team Description 11/05/2018 Imaging Radiology 11/26/2018 Office Visit Family Medicine Rajwinder Carter, DO [address] [place] [address] [phone] 12/19/2018 Office Visit Gynecology Obstetrics Irene Mujica CRNP [address] [facility] [place] [address] [phone] 12/24/2018 Nutrition Services Gastroenterology Melissa Omalley, [place] [address] [place] [address] [phone] 12/24/2018 Office Visit Gastroenterology Lyssa Stout CRNP [address] [facility] [place] [address] [phone] 06/18/2019 Office Visit Optometry Jarett Schmitt, OD [address] [place] [address] [phone] Health Maintenance Due Date Last Done Comments [...] on file. For more information, please contact: [place] [phone]
--- OUTSIDE RECORDS SUMMARY | 2023-05-10 23:15 | External Medical Summary | Summary of Care ---
Author Name Unknown Organization [place] [address] Care Team Providers Care Operational Assistant Name Role Phone RaulRajwinder Belen MORENO Primary Care Provider [phone] Reason for Visit * Reason Comments Dosage Adjustment In Person (Anticoag Cl inic) Diabetes Follow-Up Encounter Details Date Type Department Care Team Description 09/21/2018 Pharmacy Pharmacy, [place] [address] [place] [address] [facility] [address] [place] [address] [phone] Type 2 diabetes mellitus with hemoglobin A1c goal of less than 7.0% ([facility])* Allergies Active Allergy Reactions Severity Noted Date Comments Penicillins Rash 02/12/2008 as of this encounter Medications Medication Sig Dispensed Refills Start Date End Date Status NEBULIZER DEVIIndications:Sle ep apnea,Other dyspnea and respiratory abnormality,Other specified infantile cerebral palsy as directed 1 0 8 Active ASPIRIN 81 MG PO TABS one tab by mouth daily 34 Tab 5 2 Active CENTRUM SILVER PO TABS 1 tab [...] bedtime 30 Each 3 8 Active nystatin 136233 UNIT/GM creamIndications:Ca ndidal vulvovaginitis Apply topically to affected area 2 times a day. To affacted area for two weeks. 15 g 2 8 Active Blood Glucose Monitoring Suppl (Petizens.comIO) w/Device KITIndications:Type 2 diabetes mellitus with hemoglobin A1c goal of less than 7.0% (HCC) Use up to 4 times a day E11.9 1 Kit 0 8 Active Glucose Blood (Giftindia24x7.comUCH VERIO) STRP Use up to four times [...] AT BEDTIME 30 Tab 0 8 Active cyclobenzaprine (FLEXERIL) 10 MG Tablet TAKE 1 TABLET BY MOUTH AT BEDTIME 30 Tab 0 9 Active Dulaglutide (TRULICITY) 1.5 MG/0.5ML SOPNIndications:Typ e 2 diabetes mellitus with hemoglobin A1c goal of less than 7.0% (HCC) Inject 1 syringeful once weekly 4 Pre-filled Pen Syringe Dosing Unit 5 9 Active BD PEN NEEDLE MINI U/F 31G X 5 MMIndications:Type 2 diabetes mellitus with hemoglobin A1c goal of less than 7.0% (HCC) Use with Basaglar at bedtime. 30 Each 9 Active BD PEN NEEDLE MINI U/F 31G X 5 MMIndications:Type 2 diabetes mellitus with hemoglobin A1c goal of less than 7.0% (HCC) Use with Basaglar at bedtime. 30 Each 8 09/21/19 19 Discontinued Dulaglutide (TRULICITY) 1.5 MG/0.5ML SOPNIndications:Typ e 2 diabetes mellitus with hemoglobin A1c goal of less than 7.0% (HCC) Inject 1 syringeful once weekly 4 Pre-filled Pen Syringe Dosing Unit 5 8 09/21/19 19 Discontinued BD PEN NEEDLE MINI U/F 31G X 5 MMIndications:Type 2 diabetes mellitus with hemoglobin A1c goal of less than 7.0% (HCC) Use with Basaglar at bedtime. 30 Each 9 09/21/19 19 Discontinued as of this encounter Active Problems Problem [...] pain 01/24/2012 01/17/2017 Genetic Sleep Disorder Research Other*[id number] 05/13/2011 04/07/2016 Obstructive sleep apnea 01/18/2011 12/27/19 [...] Start Travel End as of this encounter Progress Notes * Shelli Osorio [facility] - 09/21/2018 11:03 AM EST Medication Therapy Disease Management Diabetes Interval History: Shaina Shaw is an 63 year old year old female returning to the [facility] for a diabetes follow-up appointment. Blood glucose control since last visit: stable Medication intolerance: no Medication compliance: compliant Hospitalization or ED Utilization since last visit: no Hypoglycemia requiring assistance since last visit: no Symptoms of hyperglycemia or hypoglycemia present today: no Diet: unchanged Exercise: limited due to CP Current Diabetes Medications: Lantus 24 units daily Trulicity 1.5mg once weekly Metformin 1000mg twice daily Self-Monitoring Blood Glucose Review: Patient currently tests blood glucose 3 time(s) daily No meter or BG log to appt today Hypoglycemia: 1. Do you know what the symptoms of hypoglycemia are? Yes 2. How often can you tell by your symptoms if your blood sugar is low? Sometimes 3. In a typical week, how many times will your blood sugar go below 70 mg/dL? Never Patient Active Problem List Diagnosis Code Spinal stenosis of lumbar region without neurogenic claudication M48.061 Cerebral palsy ([facility]) G80.9 HTN, goal below 140/90 I10 Chronic rhinitis J31.0 NG (nonalcoholic steatohepatitis) K75.81 Stasis dermatitis I87.2 DDD (degenerative disc disease), lumbar M51.36 Intermittent asthma with reliever use up to twice per week J45.20 Lymphedema I89.0 Type 2 diabetes mellitus with hemoglobin A1c goal of less than 7.0% ([facility]) E11.9 Vitamin D deficiency E55.9 Restrictive lung disease J98.4 Obesity, morbid (more than 100 lbs over ideal weight or BMI > 40) ([facility]) E66.01 Dyslipidemia, goal LDL below 70 E78.5 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 R39.81 Acquired hypothyroidism E03.9 Chronic pain syndrome G89.4 MEDICATION USE AGREEMENT [id number] History of Clostridium difficile colitis Z86.19 Cirrhosis of liver ([facility]) K74.60 THAD on CPAP G47.33, Z99.89 Review of patient's allergies indicates: Allergen Reactions Pcn [Penicillins] Rash Current Outpatient Medications Medication Sig Dispense Refill cyclobenzaprine (FLEXERIL) 10 MG Tablet TAKE 1 TABLET BY MOUTH AT BEDTIME 30 Tab 0 cyclobenzaprine (FLEXERIL) 10 MG Tablet [...] Pre- filled Pen Syringe Dosing Unit 5 escitalopram (LEXAPRO) [...] 500 mg by mouth daily. Glucose Blood ([employer]) STRP Use up to four times a day as directed.DX:E11.9 400 Strip 3 Blood Glucose Monitoring Suppl ([employer]) w/Device KIT Use up to 4 times a day E11.9 1 Kit 0 nystatin 919212 UNIT/GM cream Apply topically to affected area [...] 1 vial in nebulizer 180 mL 0 ASPIRIN 81 MG PO TABS one tab by mouth daily 34 Tab 5 CENTRUM SILVER PO TABS 1 tab daily 1 Tab 0 NEBULIZER KORTNEY as directed 1 0 Objective: The ASCVD Risk score (Sami BARAHONA Jr., et al., 2013) failed to calculate for the following reasons: The valid total cholesterol range is 130 to 320 mg/dL Estimated body mass index is 49.61 kg/m as calculated from the following: Height as of 04/11/18: 1.499 m (4' 11"). Weight as of 07/16/18: 111.4 kg (245 lb 9.6 oz). BP Readings from Last 3 Encounters: 08/28/18 122/82 07/16/18 122/72 07/16/18 122/72 No POC orders found HEMOGLOBIN, A1C(%) Lucio Dt/Tm Resulted Value Status 02/13/18 3:27P 02/13/18 7.1* FINAL 10/11/17 1:18P 10/11/17 6.9* FINAL 03/28/17 3:31P 03/28/17 6.6* FINAL MICROALBUMIN RATIO(mg/g creat) Lucio Dt/Tm Resulted Value Status 02/03/17 9:58A 02/03/17 <15 FINAL 08/25/15 1:56P 08/25/15 27 FINAL 3/31/15 3:28P 12/09/14 7 FINAL BASIC METAB PANEL, BMP Lucio Dt/Tm Resulted Value Status BUN (mg/dL) 10/11/17 1:18P 10/11/17 11 F CREATININE (mg/dL) 10/11/17 1:18P 10/11/17 0.7 F SODIUM (mmol/L) 10/11/17 1:18P 10/11/17 144 F POTASSIUM (mmol/L) 10/11/17 1:18P 10/11/17 4.1 F CHLORIDE (mmol/L) 10/11/17 1:18P 10/11/17 104 F CO2 (mmol/L) 10/11/17 1:18P 10/11/17 27 F ANION GAP (mmol/L) 10/11/17 1:18P 10/11/17 13 F GLUCOSE (mg/dL) 10/11/17 1:18P 10/11/17 168* F CALCIUM (mg/dL) 10/11/17 1:18P 10/11/17 9.3 F E GLOM FILT RATE ( ) 10/11/17 1:18P 10/11/17 >60.0 F ALT(U/L) Lucio Dt/Tm Resulted Value Status 02/13/18 3:27P 02/13/18 26 FINAL LDL (DIRECT MEASURE)(mg/dL) [place] Dt/Tm Resulted Value Status 10/11/17 1:18P 10/11/17 57 FINAL Assessment & Plan:Glycemic control is stable and at goal. Patient agreeable to continue medications as noted below. Patient just returned from a 1 month stay at a SNF. Medications were maintained during stay. There was no change upon d/c. Patient states she is doing well. She forgot her log but states she has not had any low BG levels that she can remember. She is due for A1c and will have drawn today. As patient has been doing well without lows if A1c is at goal will d/c at that time. Patient is agreeable to SMBG 2 time(s) daily. Patient aware to contact clinic if any hypoglycemia before next visit. Reviewed rule of 15s. Diabetes Medications: As above Diabetes Health Maintenance: A1c Next Office Visit: No Future Appointments Jo Faulkner RPh, Pharm D, CACP, CDE Clinical Pharmacist Medication Therapy Disease Management 09/21/2018, 11:03 AM in this encounter Plan of Treatment Upcoming Encounters Date Type Specialty Care Team Description 09/24/2018 Nutrition Services Gastroenterology Melissa Omalley RDN [address] [place] [id number] 09/24/2018 Office Visit Gastroenterology Lyssa Stout CRNP [address] [facility] [place] [address] [phone] 09/26/2018 Nurse Only Gastroenterology Nurse Anthony Fernandes [address] [facility] [place] [address] [phone] 10/02/2018 Office Visit Sleep Disorders Lanette Fields CRNP [address] [facility] [place] [address] [phone] 11/26/2018 Office Visit Family Medicine Rajwinder Carter DO [address] [place] [address] [phone] 12/19/2018 Office Visit Gynecology Obstetrics Irene Mujica CRNP [address] [facility] [place] [address] [phone] 06/18/2019 Office Visit Optometry Jarett Schmitt, OD [address] [place] [address] [phone] Pending Results Name Priority Associated Diagnoses Date/Ti me HEMOGLOBIN A1C Routine Type 2 diabetes mellitus with hemoglobin A1c goal of less than 7.0% (HCC) 09/21/2018 11:23 AM EST Scheduled Tests Name Priority Associated Diagnoses Order S chedule HEMOGLOBIN A1C Routine Type 2 diabetes mellitus with hemoglobin A1c goal of less than 7.0% (HCC) Expected: 09/21/2018 (Approximate), Expires: 12/20/2018 Health Maintenance Due Date Last Done Comments DIABETES-HGBA1C EVERY 6 MONTHS 08/15/2018 0 02/13/2018, 10/11/2017, 03/28/2017, Additional history exists DIABETES-FOOT EXAM 12/26/2018 12/26/2017, 0 03/22/2017, 06/07/2016, Additional history exists Yearly B-12 02/13/2019 02/13/2018 BREAST CANCER SCREENING DISC USSION YEARLY AGES [...] fileas of this encounter Visit Diagnoses Diagnosis Type 2 diabetes mellitus with hemoglobin A1c goal of less than 7.0% (HCC)- Primary in this encounter Advance Directives Patient has advance care planning documents on file. For more information, please contact: [place] [phone]
--- OUTSIDE RECORDS SUMMARY | 2023-05-10 23:15 | External Medical Summary | Summary of Care ---
Author Name Unknown Organization [facility] Address [place] [address] Care Team Providers Care Hand Chain Maker Name Role Phone Rajwinder Carter DO Primary Care Provider Reason for Visit * Reason Comments Advice Encounter Details Date Type Department Care Team Description 11/13/2018 Telephone [facility] [address] [place], [place] [id number] Rajwinder Carter DO [address] [place], [place] [id number] Advice Allergies Active Allergy Reactions Severity Noted [...] of less than 7.0% ([facility]) Use with Lantus Solostar at bedtime 30 Each 3 10/11/2017 Active nystatin 994531 UNIT/GM creamIndications:Can didal vulvovaginitis Apply topically to affected area 2 times a day. To affacted area for two weeks. 15 g 2 10/12/2017 Active Blood Glucose Monitoring Suppl (Inspirato) w/Device KITIndications:Type 2 diabetes mellitus with hemoglobin A1c goal of less than 7.0% (HCC) Use up to 4 times a day E11.9 1 Kit 0 10/17/2017 Active Glucose Blood ([employer]) STRP Use up to four times [...] mouth daily. 34 Tab 5 11/06/2018 Active documented as of this encounter (statuses [...] pain 01/24/2012 01/17/2017 Genetic Sleep Disorder Research Other*[id number] 05/13/2011 04/07/2016 Obstructive sleep apnea 01/18/2011 12/27/19 [...] Telephone Encounter - Jovana Lambert RN - 11/15/2018 12:30 PM EST Faxed as requested * Telephone Encounter - Rajwinder Carter DO - 11/15/2018 11:57 AM EST Letter done. Can fax this and note. On Jovana's desk. * Telephone Encounter - Tila Joyce OSA - 11/13/2018 2:23 PM EST Maggie from [employer] called requesting chart notes showing why the patient needs abedside table. She also request a letter of medical necessity signed by the doctor Please fax to [facility] at [phone] documented in this encounter Plan of Treatment Upcoming Encounters Date Type Specialty Care Team Description 11/26/2018 Office Visit Family Medicine Rajwinder Carter DO [address] [place], [place] [phone] 12/21/2018 Office Visit Gynecology Obstetrics Sandra Meehan, CNM [address] [place] [id number] 12/24/2018 Nutrition Services Gastroenterology Melissa Omalley, RDN [address] [place] [phone] 12/24/2018 Office Visit [facility]astroenterology [facility] Stout [facility] [address] [facility] [address] [phone] 06/18/2019 Office Visit Optometry Jarett Schmitt, OD [address] [place] [address] Health Maintenance Due Date Last [...] For more information, please contact: [place] [phone]
--- OUTSIDE RECORDS SUMMARY | 2023-05-10 23:15 | External Medical Summary | Summary of Care ---
Author Name Unknown Organization [facility] Address [place] [address] Care Team Providers Care Printing Press Operator Name Role Phone Rajwinder Carter DO Primary Care Provider [phone] Reason for Visit * Reason Comments Encounter Created in Error Encounter Details Date Type Department Care Team Description 11/06/2018 Telephone Merged With [facility] [address] [place] [address] Rajwinder Carter DO [address], [place] [id number] Encounter Created in Error Allergies Active Allergy Reactions Severity Noted Date Comments Penicillins Rash 02/12/2008 documented as of this encounter (statuses as of 11/06/2018) Medications Medication Sig Dispensed Refills Start Date [...] bedtime 30 Each 3 10/11/2017 Active nystatin 595571 UNIT/GM creamIndications:Can didal vulvovaginitis Apply topically to affected area 2 times a day. To affacted area for two weeks. 15 g 2 10/12/2017 Active Blood Glucose Monitoring Suppl (UpverterIO) w/Device KITIndications:Type 2 diabetes mellitus with hemoglobin A1c goal of less than 7.0% (HCC) Use up to 4 times a day E11.9 1 Kit 0 10/17/2017 Active Glucose Blood (The Thomas Surprenant Makeup AcademyTOUCH VERIO) STRP Use up to four times [...] as of this encounter (statuses as of 11/06/2018) Active Problems Problem Noted Date THAD on [...] as of this encounter (statuses as of 11/06/2018) Resolved Problems Problem Noted Date Resolved Date [...] pain 01/24/2012 01/17/2017 Genetic Sleep Disorder Research Other*[id number] 05/13/2011 04/07/2016 Obstructive sleep apnea 01/18/2011 12/27/19 [...] as of this encounter (statuses as of 11/06/2018) Immunizations Name Dates Previously Given Next Due [...] Description 11/26/2018 Office Visit Family Medicine Rajwinder Carter, DO [address] [place] [address] 12/19/2018 Office Visit [facility]ne[facility]st[facility]s [facility] [place] [address] [phone] 12/24/2018 Nutrition Services Gastroenterology Melissa Omalley RDN [address] [place] [address] [place] [address] 12/24/2018 Office Visit Gastroenterology Lyssa Stout CRNP [address] [place] [address] 06/18/2019 Office Visit Optometry aJrett Schmitt OD 16 [facility] [place] [address] Health Maintenance Due [...] For more information, please contact: [place] [phone]
--- OUTSIDE RECORDS SUMMARY | 2023-05-10 23:15 | External Medical Summary | Summary of Care ---
Author Name Unknown Organization [facility] Address [place] [address] Care Team Providers Care Balancer Scale Name Role Phone Rajwinder Carter DO Primary Care Provider Unava ilable Reason for Visit * Reason Comments Order Request labs for imaging Encounter Details Date Type Department Care Team Description 11/01/2018 Telephone Radiology [address] [facility] [place] [address] Kimberly Stafford RT ([place]) Order Request (labs for imaging) Allergies Active Allergy Reactions Severity Noted Date Comments Penicillins Rash 02/12/2008 documented as of this encounter (statuses as of 11/01/2018) Medications Medication Sig Dispensed Refills Start Date [...] than 7.0% ([facility]) Use with Lantus Solostar at bedtime 30 Each 3 10/11/2017 Active nystatin 141548 UNIT/GM creamIndications:Can didal vulvovaginitis Apply topically to affected area 2 times a day. To affacted area for two weeks. 15 g 2 10/12/2017 Active Blood Glucose Monitoring Suppl (Rapid Action Packaging) w/Device KITIndications:Type 2 diabetes mellitus with hemoglobin A1c goal of less than 7.0% (HCC) Use up to 4 times a day E11.9 1 Kit 0 10/17/2017 Active Glucose Blood (RainTree Oncology ServicesUCH VERPaytopia) STRP Use up to four times a [...] as of this encounter (statuses as of 11/01/2018) Active Problems Problem Noted Date THAD on [...] as of this encounter (statuses as of 11/01/2018) Resolved Problems Problem Noted Date Resolved Date [...] pain 01/24/2012 01/17/2017 Genetic Sleep Disorder Research Other*[id number] 05/13/2011 04/07/2016 Obstructive sleep apnea 01/18/2011 12/27/19 [...] as of this encounter (statuses as of 11/01/2018) Immunizations Name Dates Previously Given Next Due [...] Telephone Encounter - Caron Escobar RN - 11/01/2018 11:59 AM EST Orders entered, called and made patient aware to have labs. She verbalizes understanding. * Telephone Encounter - Kimberly Stafford RT ([place]) - 11/01/2018 11:30 AM EST Patient need BUN.Creaatinine prior to MRI. Pleas order these labs and Notify patient to have drawn prior to her MRI on Monday. Thank you, [facility] MRI documented in this encounter Plan of Treatment Upcoming Encounters Date Type Specialty Care Team Description 11/05/2018 Imaging Radiology 11/26/2018 Office Visit Family Medicine Rajwinder Carter DO [address] [place], [place] [address] 12/19/2018 Office Visit Gynecology Obstetrics Irene Mujica CRNP [address] [facility] [place] [address] [phone] 12/24/2018 Nutrition Services Gastroenterology Melissa Omalley, [place] [address] [place] [address] [phone] 12/24/2018 Office Visit Gastroenterology Lyssa Stout CRNP 132 [facility] [place] [address] [phone] 06/18/2019 Office Visit Optometry Jarett Schmitt, OD [address] [place] [address] Scheduled Tests Name Priority Associated Diagnoses Order S chedule BUN Routine Cirrhosis of liver (HCC) Expected: 11/08/2018 (Approximate), Expires: 05/01/2019 CREATININE SERUM Routine Cirrhosis of liver (HCC) Expected: 11/08/2018 (Approximate), Expires: 05/01/2019 Health Maintenance Due Date Last Done Comments [...] encounter Visit Diagnoses Diagnosis Cirrhosis of liver (HCC)- Primary Cirrhosis of liver without mention of alcohol documented in this encounter Advance Directives Patient has advance care planning documents on file. For more information, please contact: [place] [phone]
--- OUTSIDE RECORDS SUMMARY | 2023-05-10 23:15 | External Medical Summary | Summary of Care ---
Author Name Unknown Organization [facility] Address [place] [address] Care Team Providers Care Bleacher Kraft Pulp Name Role Phone Rajwinder Lara DO Primary Care Provider [phone] Reason for Visit * Reason Comments Medication Refill Encounter Details Date Type Department Care Team Description 11/06/2018 Refill [facility] [address] [place] [address] Rajwinder Lara DO [address] [place] [address] [phone] Allergies Active Allergy Reactions Severity Noted Date [...] than 7.0% ([facility]) Use with Lantus Solostar at bedtime 30 Each 3 8 Active nystatin 785424 UNIT/GM creamIndications:Ca ndidal vulvovaginitis Apply topically to affected area 2 times a day. To affacted area for two weeks. 15 g 2 8 Active Blood Glucose Monitoring Suppl (BitAccess VERIO) w/Device KITIndications:Type 2 diabetes mellitus with hemoglobin A1c goal of less than 7.0% (HCC) Use up to 4 times a day E11.9 1 Kit 0 8 Active Glucose Blood (Makeover SolutionsTOUCH VERIO) STRP Use up to four times [...] Tab by mouth daily. 34 Tab 5 02/26/201 9 Active ASPIRIN 81 MG PO TABS one tab by mouth daily 34 Tab 5 2 11/06/19 19 Discontinued documented as of this encounter [...] pain 01/24/2012 01/17/2017 Genetic Sleep Disorder Research Other*[id number] 05/13/2011 04/07/2016 Obstructive sleep apnea 01/18/2011 12/27/19 [...] Telephone Encounter - Rajwinder Lara DO - 11/06/2018 2:50 PM EST Signed Prescriptions: Disp Refills Aspirin 81 MG Tablet 34 Tab 5 Sig: Take 1 Tab by mouth daily. Authorizing Provider: RAJWINDER LARA * Telephone Encounter - Ludy Mccormack, harness rigger - 11/06/2018 12:51 PM EST Pt requesting refill on below script so she can have it in her pill pack. Please approve if appropriate. Medication is listed as "Historical". Pt advised of the current dosage, directions, and qty that they are normally prescribed, as reflected in the pending order below. Please review and approve if appropriate. Pending Prescriptions: Disp Refills Aspirin 81 MG Tablet 34 Tab 5 Sig: Take 1 Tab by mouth daily. Last Office Visit: 08/28/2018 Next Office Visit: 11/26/2018 Scheduled Provider(s): Rajwinder Lara DO If no future appointments scheduled, and last appointment is greater than a year ago, please schedule patient for a follow-up appointment Last date the medication was ordered: Historical Patient Phone Numbers Labs: Lab Results Component Value Date/Time CREAT 0.7 11/02/2018 01:52 PM POTASSIUM 4.2 02/13/2018 03:27 PM TSH 0.02 (L) 03/28/2018 04:20 PM LDLCALC 57 05/05/2016 10:19 AM LDLDIRECT 57 10/11/2017 01:18 PM ALT 26 02/13/2018 03:27 PM HGBA1C 6.1 (H) 09/21/2018 11:23 AM documented in this encounter Plan of Treatment Upcoming Encounters Date Type Specialty Care Team Description 11/26/2018 Office Visit Family Medicine [facility] [address] [facility] [address] 12/21/2018 Office Visit Gynecology Obstetrics Sandra Meehan CNM [address] [place] [address] [place] [address] 12/24/2018 Nutrition Services Gastroenterology Melissa Omalley RDN [address] [place] [address] 12/24/2018 Office Visit Gastroenterology Lyssa Stout, MACHINE LAY OUT WORKER 132 [facility] [place] [address] [phone] 06/18/2019 Office Visit Optometry OskarJarett burnett Lam, OD [address] [place] [address] Health Maintenance Due Date Last Done [...] For more information, please contact: [place] [phone]
--- OUTSIDE RECORDS SUMMARY | 2023-05-10 23:15 | External Medical Summary | Summary of Care ---
Author Name Unknown Organization [facility] Address [facility] [place] [address] Care Team Providers Care Valet Cashier Name Role Phone Rajwinder Carter DO Primary Care Provider Unazulay ilable Encounter Details Date Type Department Care Team Description 09/25/2018 Scan Encounter Sleep Disorders, [facility] [address] [place] [address] Vielka Sandoval MD 400 [facility] [address] [place] [address] <No scans attached> Allergies Active Allergy Reactions Severity Noted Date Comments Penicillins Rash 02/12/2008 documented as of this encounter (statuses as of 10/22/2018) Medications Medication Sig Dispensed Refills Start Date [...] bedtime 30 Each 3 10/11/2017 Active nystatin 085514 UNIT/GM creamIndications:Can didal vulvovaginitis Apply topically to affected area 2 times a day. To affacted area for two weeks. 15 g 2 10/12/2017 Active Blood Glucose Monitoring Suppl (Site IntelligenceTOUCH VERIO) w/Device KITIndications:Type 2 diabetes mellitus with hemoglobin A1c goal of less than 7.0% (HCC) Use up to 4 times a day E11.9 1 Kit 0 10/17/2017 Active Glucose Blood (Site IntelligenceTOUCH VERIO) STRP Use up to four times [...] at bedtime. 30 Each 11 09/21/2018 Active documented as of this encounter (statuses as of 10/22/2018) Active Problems Problem Noted Date THAD on [...] as of this encounter (statuses as of 10/22/2018) Resolved Problems Problem Noted Date Resolved Date [...] pain 01/24/2012 01/17/2017 Genetic Sleep Disorder Research Other*[id number] 05/13/2011 04/07/2016 Obstructive sleep apnea 01/18/2011 12/27/19 [...] as of this encounter (statuses as of 10/22/2018) Immunizations Name Dates Previously Given Next Due [...] 11/26/2018 Office Visit Family Medicine Rajwinder Carter, [address] [place] [address] [phone] 12/19/2018 Office Visit Gynecology Obstetrics Irene Mujica CRNP [address] [facility] [address] [phone] 12/24/2018 Nutrition Services Gastroenterology Melissa Omalley RDN [address] [place] [address] [phone] 12/24/2018 Office Visit Gastroenterology Lyssa Stout CRNP [address] [facility] [place] [address] [phone] 06/18/2019 Office Visit Optometry Jarett Schmitt, OD [address] [place] [address] Health Maintenance Due Date Last [...] For more information, please contact: [place] [phone]
--- OUTSIDE RECORDS SUMMARY | 2023-05-10 23:15 | External Medical Summary | Summary of Care ---
Author Name Unknown Organization [facility] Address [place] [address] Care Team Providers Care Housekeeping Supervisor Hotel Name Role Phone RaulRajwinder Primary Care Provider [phone] Reason for Visit * Reason Comments eRx-Medication Refill Encounter Details Date Type Department Care Team Description 10/11/2018 Refill [place] [address] [place] [address] Brianne Lowery PA-C [address] [place] [address] [phone] Allergies Active Allergy Reactions Severity Noted Date Comments Penicillins Rash 02/12/2008 documented as of this encounter (statuses as of 10/11/2018) Medications Medication Sig Dispensed Refills Start Date [...] bedtime 30 Each 3 8 Active nystatin 556699 UNIT/GM creamIndications:Ca ndidal vulvovaginitis Apply topically to affected area 2 times a day. To affacted area for two weeks. 15 g 2 8 Active Blood Glucose Monitoring Suppl (Crossboard Mobile (Former[employer] VERIO) w/Device KITIndications:Type 2 diabetes mellitus with hemoglobin A1c goal of less than 7.0% (HCC) Use up to 4 times a day E11.9 1 Kit 0 8 Active Glucose Blood (AthenixTOUCH VERIO) STRP Use up to four times [...] MOUTH AT BEDTIME 30 Tab 0 9 10/11/19 19 Discontinued documented as of this encounter (statuses as of 10/11/2018) Active Problems Problem Noted Date THAD on [...] as of this encounter (statuses as of 10/11/2018) Resolved Problems Problem Noted Date Resolved Date [...] pain 01/24/2012 01/17/2017 Genetic Sleep Disorder Research Other*[id number] 05/13/2011 04/07/2016 Obstructive sleep apnea 01/18/2011 12/27/19 [...] as of this encounter (statuses as of 10/11/2018) Immunizations Name Dates Previously Given Next Due [...] Telephone Encounter - Brianne Lowery PA-C - 10/11/2018 4:13 PM EST Signed Prescriptions: Disp Refills cyclobenzaprine (FLEXERIL) 10 MG Tablet 30 Tab 0 Sig: TAKE 1 TABLET ONCE DAILY AT BEDTIME Authorizing Provider: BRIANNE LOWERY * Telephone Encounter - Kiesha Schmitt LPN - 10/11/2018 4:01 PM EST Pending Prescriptions: Disp Refills cyclobenzaprine (FLEXERIL) 10 MG Tablet [*30 Tab 0 Sig: TAKE 1 TABLET ONCE DAILY AT BEDTIME * Telephone Encounter - Vivian Izquierdo LPN - 10/11/2018 3:52 PM EST Pending Prescriptions: Disp Refills cyclobenzaprine (FLEXERIL) 10 MG Tablet [*30 Tab 0 Sig: TAKE 1 TABLET ONCE DAILY AT BEDTIME * Telephone Encounter - Vivian Izquierdo LPN - 10/11/2018 3:52 PM EST Pending Prescriptions: Disp Refills cyclobenzaprine (FLEXERIL) 10 MG Tablet [*30 Tab 0 Sig: TAKE 1 TABLET ONCE DAILY AT BEDTIME Last Office Visit: 08/28/2018 Next Office Visit: 11/26/2018 Scheduled Provider(s): Rajwinder Carter, Last date the medication was ordered: 09/12/18 Patient Active Problem List Diagnosis Code Spinal [...] less than 7.0% ([facility]) E11.9 Vitamin D deficiency E55.9 Restrictive lung disease J98.4 Obesity, morbid (more than 100 lbs over ideal weight or BMI > 40) ([facility]) E66.01 Dyslipidemia, goal LDL below 70 E78.5 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 R39.81 Acquired hypothyroidism E03.9 Chronic pain syndrome G89.4 MEDICATION USE AGREEMENT MG7370 History of Clostridium difficile colitis Z86.19 Cirrhosis of liver ([facility]) K74.60 THAD on CPAP G47.33, Z99.89 Labs: CREATININE-OUTSIDE LAB(MG/DL) [place] Dt/Tm Resulted Value Status 08/24/18 08/27/18 0.77 FINAL POTASSIUM-OUTSIDE LAB(MMOL/L) [place] Dt/Tm Resulted Value [...] Rajwinder Carter DO [address] [place] [address] [phone] 12/19/2018 Office Visit Gynecology Obstetrics Irene Mujica CRNP [address] [place] [address] [phone] 12/24/2018 Nutrition Services Gastroenterology Melissa Omalley, RDN [address] [facility] [address] [place] [address] [phone] 12/24/2018 Office Visit Gastroenterology Lyssa Stout CRNP [address] [place] [address] [phone] 06/18/2019 Office Visit Optometry Jarett Schmitt, OD [address] [place] [address] Health Maintenance Due Date Last [...] For more information, please contact: [place] [phone]
--- OUTSIDE RECORDS SUMMARY | 2023-05-10 23:15 | External Medical Summary ---
Author Name Unknown Address [address] [place] [address] Phone Organization K01:[facility] [address] [place] [id number] Laboratory Report Ordering Provider Test Date Status NASEEMODESSA 11/02/2018 13:52:00 Final Observation Date Value Abnormality Reference Status Creatinine 11/02/2018 22:43 0.7 0.5-1.0 Fi nal Performing Location [facility] [address] [facility] [address]
--- OUTSIDE RECORDS SUMMARY | 2023-05-10 23:16 | External Medical Summary | Summary of Care ---
Author Name Unknown Organization [facility] Address [place] [address] Care Team Providers Care Tea Room Manager Name Role Phone Rajwinder Carter DO Primary Care Provider [phone] Reason for Visit * Reason Comments Advice Encounter Details Date Type Department Care Team Description 08/23/2018 Telephone [place] [address] [place] [address] Rajwinder Carter DO [address] [place] [address] [phone] Advice Allergies Active Allergy Reactions Severity Noted [...] bedtime 30 Each 3 10/11/2017 Active nystatin 589946 UNIT/GM creamIndications:Can didal vulvovaginitis Apply topically to affected area 2 times a day. To affacted area for two weeks. 15 g 2 10/12/2017 Active Blood Glucose Monitoring Suppl (Hemenkiralik.com VERIO) w/Device KITIndications:Type 2 diabetes mellitus with hemoglobin A1c goal of less than 7.0% (HCC) Use up to 4 times a day E11.9 1 Kit 0 10/17/2017 Active Glucose Blood (PhaseRxTOUCH VERIO) STRP Use up to four times a day as directed.DX:E11. 9 400 Strip 3 12/04/2017 Active vitamin c (ASCORBIC ACID) 500 MG Tablet Take 500 mg by mouth daily. 0 Active BD PEN NEEDLE MINI U/F 31G X 5 MMIndications:Type 2 diabetes mellitus with hemoglobin A1c goal of less than 7.0% (HCC) Use with Basaglar at bedtime. 30 Each 11 03/12/2018 Active escitalopram (LEXAPRO) 20 MG Tablet Take 1 Tab by mouth daily. 30 Tab 05/18/2018 Active levothyroxine (LEVOXYL) 150 MCG TabletIndications:Ac quired hypothyroidism Take 1 Tab by mouth daily. (at least 30 min prior to breakfast or other meds) 30 Tab 11 05/18/2018 Active traZODone (DESYREL) 50 MG TabletIndications:Sl eep disturbances Take 1 Tab by mouth at bedtime. 30 Tab 05/18/2018 Active potassium chloride ER [...] in pm, 180 Cap 5 05/18/2018 Active Dulaglutide (TRULICITY) 1.5 MG/0.5ML SOPNIndications:Type 2 diabetes mellitus with hemoglobin A1c goal of less than 7.0% (HCC) Inject 1 syringeful once weekly 4 Pre-filled Pen Syringe Dosing Unit 5 05/18/2018 Active insulin glargine (LANTUS SOLOSTAR) [...] AT BEDTIME 30 Tab 0 08/03/2018 Active as of this encounter Active Problems [...] pain 01/24/2012 01/17/2017 Genetic Sleep Disorder Research Other*[id number] 05/13/2011 04/07/2016 Obstructive sleep apnea 01/18/2011 12/27/19 [...] Start Travel End as of this encounter Miscellaneous Notes * Telephone Encounter - Quyen Tate, THAD - 08/23/2018 12:27 PM EST Pt calling stating she will keep her appt on 08/28 and to let pcp aware that she might be going to the [facility]. Thank you. in this encounter Plan of Treatment Upcoming Encounters Date Type Specialty Care Team Description 08/23/2018 Office Visit Dermatology Rachel Hill MD [address] [place], [place] [address] [address] [phone] 08/28/2018 Office Visit Family Medicine [facility]winder Carter DO [address] [facility] [address] [phone] 09/21/2018 [facility]acy [facility]acy [facility] [address] [facility] [address] [phone] 09/24/2018 Nutrition Services Gastroenterology Melissa Omalley RDN [address] [place] [id number] 09/24/2018 Office Visit Gastroenterology Lyssa Stout CRNP 132 [facility] [place] [address] [phone] 09/26/2018 Nurse Only Gastroenterology Nurse Dom Gastro Chau 132 [facility] [place] [address] [phone] 10/02/2018 Office Visit Sleep Disorders Lanette Fields CRNP [address] [facility] [address] [phone] 12/19/2018 Office Visit Gynecology Obstetrics Irene Mujica CRNP [address] [facility] [address] [phone] 06/18/2019 Office Visit Optometry Jarett Schmitt, OD [address] [place] [address] Health Maintenance Due Date Last [...] history exists DIABETES-URINE MICROALBUMIN EVERY 12 MONTHS 07/19/2019 07/19/2018, 06/16/2018, 02/06/2018, Additional history exists PAP SMEAR-EVERY 3 YRS,AGES 21-65 10/10/2019 10/10/2016, 07/02/2014, 04/16/2013, Additional history exists DTaP,Tdap,and Td Vaccines (3 - Td) 05/01/20272016, 05/26/2008 PNEUMOCOCCAL 19-64 MEDIUM RISK Completed 06/01/2010 Influenza Vaccine (FLU shot) Completed 01/2018, 07/10/2017, 06/07/2016, Additional history exists as of this encounter Implants Not on fileas of this encounter Advance Directives Patient has advance care planning documents on file. For more information, please contact: [place] [phone]
--- OUTSIDE RECORDS SUMMARY | 2023-05-10 23:16 | External Medical Summary | Summary of Care ---
Author Name Unknown Organization [place] [address] Care Team Providers Care Prosthodontist Name Role Phone JohnbrianRajwinder thacker Primary Care Provider Encounter Details Date Type Department Care Team Description 08/21/2018 Scan Encounter Unspecified Department <No scans attached> [...] bedtime 30 Each 3 10/11/2017 Active nystatin 442653 UNIT/GM creamIndications:Can didal vulvovaginitis Apply topically to affected area 2 times a day. To affacted area for two weeks. 15 g 2 10/12/2017 Active Blood Glucose Monitoring Suppl (LibrettoTOUCH VERIO) w/Device KITIndications:Type 2 diabetes mellitus with [...] MG per tabletIndications:Ce rebral palsy, unspecified type ([facility]) Take 1 Tab by mouth [...] pain 01/24/2012 01/17/2017 Genetic Sleep Disorder Research Other*[id number] 05/13/2011 04/07/2016 Obstructive sleep apnea 01/18/2011 12/27/19 [...] Start Travel End as of this encounter Plan of Treatment Upcoming Encounters Date Type Specialty Care Team Description 08/28/2018 Office Visit Family Medicine Rajwinder Carter DO [address] [facility] [place] [address] [phone] 09/21/2018 Pharmacy Pharm[facility] [address] [facility] [address] [phone] 09/24/2018 Nutrition Services Gastroenterology Melissa Omalley, [place] [address] [facility] [place] [address] [phone] 09/24/2018 Office Visit Gastroenterology Lyssa Stout CRNP [address] [facility] [address] [phone] 09/26/2018 Nurse Only Gastroenterology Nurse Anthony Fernandes [address] [facility] [place] [address] [phone] 10/02/2018 Office Visit Sleep Disorders Lanette Fields CRNP 132 [facility] [place] [address] [phone] 12/19/2018 Office Visit Gynecology Obstetrics Irene Mujica CRNP 132 [facility] [place] [address] [phone] 06/18/2019 Office Visit Optometry Jarett Schmitt, OD [address] [place] [address] Health Maintenance Due Date Last [...] For more information, please contact: [place] [phone]
--- OUTSIDE RECORDS SUMMARY | 2023-05-10 23:16 | External Medical Summary | Summary of Care ---
Author Name Unknown Organization [facility] Address [place] [address] Care Team Providers Care Leak Operator [employer] Name Role Phone RaulRajwinder Primary Care Provider [phone] Reason for Visit * Reason Comments eRx-Medication Refill Encounter Details Date Type Department Care Team Description 09/11/2018 Refill [place] [address] [place] [address] Brianne Lowery PA-C [address] [place] [address] [phone] Allergies Active Allergy Reactions Severity Noted Date [...] bedtime 30 Each 3 10/11/2017 Active nystatin 002628 UNIT/GM creamIndications:Can didal vulvovaginitis Apply topically to affected area 2 times a day. To affacted area for two weeks. 15 g 2 10/12/2017 Active Blood Glucose Monitoring Suppl (Pixy LtdTOUCH VERIO) w/Device KITIndications:Type 2 diabetes mellitus with hemoglobin A1c goal of less than 7.0% (HCC) Use up to 4 times a day E11.9 1 Kit 0 10/17/2017 Active Glucose Blood (Pixy LtdTOUCH VERIO) STRP Use up to four times [...] than 7.0% ([facility]) Inject 1 syringeful once weekly 4 Pre-filled Pen Syringe Dosing Unit 5 05/18/2018 Active insulin glargine (LANTUS SOLOSTAR) 100 UNIT/ML SOPNIndications:Type 2 diabetes mellitus with hemoglobin A1c goal of less than 7.0% ([facility]) Inject 24 units at bed time 5 [...] AT BEDTIME 30 Tab 0 09/12/2018 Active as of this encounter Active Problems [...] pain 01/24/2012 01/17/2017 Genetic Sleep Disorder Research Other*[id number] 05/13/2011 04/07/2016 Obstructive sleep apnea 01/18/2011 12/27/19 [...] Telephone Encounter - Brianne Lowery PA-C - 09/12/2018 2:38 PM EST Signed Prescriptions: Disp Refills cyclobenzaprine (FLEXERIL) 10 MG Tablet 30 Tab 0 Sig: TAKE 1 TABLET BY MOUTH AT BEDTIME Authorizing Provider: BRIANNE LOWERY * Telephone Encounter - Kike Fregoso LPN - 09/12/2018 9:39 AM EST Pending Prescriptions: Disp Refills cyclobenzaprine (FLEXERIL) 10 MG Tablet [*30 Tab 0 Sig: TAKE 1 TABLET BY MOUTH AT BEDTIME * Telephone Encounter - Kike Fregoso LPN - 09/12/2018 9:37 AM EST Pending Prescriptions: Disp Refills cyclobenzaprine (FLEXERIL) 10 MG Tablet [*30 Tab 0 Sig: TAKE 1 TABLET BY MOUTH AT BEDTIME Last Office Visit: 08/28/2018 Next Office Visit: 11/26/2018 Scheduled Provider(s): Rajwinder Carter, DO If no future appointments scheduled, and last appointment is greater than a year ago, please schedule patient for a follow-up appointment Last date the medication was ordered: 08/03/18 Patient Phone Numbers Labs: Lab Results Component Value Date/Time CREAT 0.77 08/24/2018 CREAT 0.7 02/13/2018 03:27 PM POTASSIUM 4.2 02/13/2018 03:27 PM TSH 0.02 (L) 03/28/2018 04:20 PM LDLCALC 57 05/05/2016 10:19 AM LDLDIRECT 57 10/11/2017 01:18 PM ALT 26 02/13/2018 03:27 PM HGBA1C 7.1 (H) 02/13/2018 03:27 PM * Telephone Encounter - Susan Rosales RN - 09/12/2018 7:42 AM EST Pending Prescriptions: Disp Refills cyclobenzaprine (FLEXERIL) 10 MG Tablet [*30 Tab 0 Sig: TAKE 1TABLET BY MOUTH AT BEDTIME in this encounter Plan of Treatment Upcoming Encounters Date Type Specialty Care Team Description 09/21/2018 Pharmacy Pharmacy [facility] [address] [facility] [place] [address] 09/24/2018 Nutrition Services Gastroenterology Melissa Omalley, SAMANTHA [address] [facility] [address] [place] [address] 09/24/2018 Office Visit Gastroenterology Lyssa Stout CRNP [address] [facility] [place] [address] [phone] 09/26/2018 Nurse Only Gastroenterology Dom, Nurse Gastro Chau [address] [facility] [place] [address] [phone] 10/02/2018 Office Visit Sleep Disorders Lanette Fields CRNP [address] [facility] [place] [address] [phone] 11/26/2018 Office Visit Family Medicine Rajwinder Carter, [address] [place] [address] [phone] 12/19/2018 Office Visit Gynecology Obstetrics Irene Mujica CRNP [address] [facility] [place] [address] [phone] 06/18/2019 Office Visit Optometry Jarett Schmitt, OD [address] [place] [address] Health Maintenance Due Date Last [...] For more information, please contact: [place] [phone]
--- OUTSIDE RECORDS SUMMARY | 2023-05-10 23:16 | External Medical Summary | Summary of Care ---
Author Name Unknown Organization [facility] Address [place] [address] Care Team Providers Care Food Scientist Name Role Phone Rajwinder Carter DO Primary Care Provider [phone] Reason for Visit * Reason Comments Advice fix wheelchair Encounter Details Date Type Department Care Team Description 08/21/2018 Telephone [place] [address] [place] [address] Rajwinder Carter DO [address] [place] [address] [phone] Advice (fix wheelchair) Allergies Active Allergy Reactions Severity Noted Date [...] bedtime 30 Each 3 10/11/2017 Active nystatin 701545 UNIT/GM creamIndications:Can didal vulvovaginitis Apply topically to affected area 2 times a day. To affacted area for two weeks. 15 g 2 10/12/2017 Active Blood Glucose Monitoring Suppl (L[employer] Fortress ServicesTOUCH VERIO) w/Device KITIndications:Type 2 diabetes mellitus with hemoglobin A1c goal of less than 7.0% (HCC) Use up to 4 times a day E11.9 1 Kit 0 10/17/2017 Active Glucose Blood (L[employer] Fort[employer] ServicesTOUCH VERIO) STRP Use up to four times [...] 7.0% ([facility]) Inject 1 syringeful once weekly 4 Pre-filled Pen Syringe Dosing Unit 5 05/18/2018 Active insulin glargine (LANTUS SOLOSTAR) 100 UNIT/ML SOPNIndications:Type 2 diabetes mellitus with hemoglobin A1c goal of less than 7.0% ([facility]) Inject 24 units at bed [...] pain 01/24/2012 01/17/2017 Genetic Sleep Disorder Research Other*[id number] 05/13/2011 04/07/2016 Obstructive sleep apnea 01/18/2011 12/27/19 [...] Telephone Encounter - Susan Rosales RN - 08/21/2018 10:59 AM EST DME order done and faxed to [facility] in [place] * Telephone Encounter - Dulce Call OSA - 08/21/2018 10:15 AM EST Pt Wants order placed for [facility] [place]. Wheel chair foot Rest Broke. Needs repairman tocome to house and Fix it in this encounter Plan of Treatment Upcoming Encounters Date Type Specialty Care Team Description 08/23/2018 Office Visit Dermatology Rachel Hill MD [address] [place] [address] [phone] 08/28/2018 Office Visit Family Medicine Rajwinder Carter DO [address] [place] [address] [phone] 09/21/2018 [facility] [address] [facility] [place] [address] [phone] 09/24/2018 Nutrition Services Gastroenterology Melissa Omalley, SAMANTHA [address] [facility] [address] [facility] 230 [place] [id number] 09/24/2018 Office Visit Gastroenterology Lyssa Stout, ZAK [address] [facility] [place] [address] [phone] 09/26/2018 Nurse Only Gastroenterology Dom, Gastro Chau [address] [facility] [place], [place] [address] [phone] 10/02/2018 Office Visit Sleep Disorders [facility] [address] [facility] [place] [address] [phone] 12/19/2018 Office Visit Gynecology Obstetrics Irene Mujica CRNP [address] [facility] [place] [address] [phone] 06/18/2019 Office Visit Optometry Jarett Schmitt, OD [address] [place] [address] Health Maintenance Due Date Last [...] fileas of this encounter Visit Diagnoses Diagnosis Cerebral palsy, unspecified type (HCC)- Primary in this encounter Advance Directives Patient has advance care planning documents on file. For more information, please contact: [place] [phone]
--- OUTSIDE RECORDS SUMMARY | 2023-05-10 23:16 | External Medical Summary | Summary of Care ---
Author Name Unknown Organization [facility] Address [place] [address] Care Team Providers Care Bottoming Machine Operator Name Role Phone Rajwinder Carter DO Primary Care Provider [phone] Encounter Details Date Type Department Care Team Description 08/27/2018 Orders Only [place] [address] [place] [address] Rajwinder Carter DO [address] [place] [address] [phone] Allergies Active Allergy Reactions Severity Noted Date [...] [facility]) Use with Lantus Solostar at bedtime 30 Each 3 10/11/2017 Active nystatin 810156 UNIT/GM creamIndications:Can didal vulvovaginitis Apply topically to affected area 2 times a day. To affacted area for two weeks. 15 g 2 10/12/2017 Active Blood Glucose Monitoring Suppl (Monford Ag SystemsIO) w/Device KITIndications:Type 2 diabetes mellitus with hemoglobin A1c goal of less than 7.0% (HCC) Use up to 4 times a day E11.9 1 Kit 0 10/17/2017 Active Glucose Blood (SyndiantTOUCH VERIO) STRP Use up to four times [...] pain 01/24/2012 01/17/2017 Genetic Sleep Disorder Research Other*[id number] 05/13/2011 04/07/2016 Obstructive sleep apnea 01/18/2011 12/27/19 [...] Rajwinder Carter DO [address] [place] [address] [phone] 09/21/2018 Pharmacy Pharmacy [facility] [address] [facility] [place] [address] [phone] 09/24/2018 Nutrition Services Gastroenterology Melissa Omalley, [place] [address] [facility] [address] [place] [address] [phone] 09/24/2018 Office Visit Gastroenterology Lyssa Stout CRNP [address] [place] [address] [phone] 09/26/2018 Nurse Only Gastroenterology Nurse Anthony Fernandes [address] [place] [address] [phone] 10/02/2018 Office Visit Sleep Disorders Lanette Fields CRNP [address] [place] [address] [phone] 12/19/2018 Office Visit Gynecology Obstetrics Irene Mujica CRNP [address] [place] [address] [phone] 06/18/2019 Office Visit Optometry Oskar Jarett Lam, OD [address] [place] [address] [phone] Health Maintenance Due Date Last Done Comments [...] Implants Not on fileas of this encounter Procedures Procedure Name Priority Date/Time Associated Diagnosis Comments CHEMISTRY-OUTSIDE Routine 08/24/2018 TSH Routine 08/24/2018 in this encounter Results * TSH (08/24/2018) TSH - OUTSIDE LAB 0.725 0.300 - 4.500 UIU/ML OU TSIDE LAB (SEE SCANNED REPORT) Narrative Performed At Performing Organization Address City/State/Zipcod e Phone Number OUTSIDE LAB (SEE SCANNED REPORT) * CHEMISTRY-OUTSIDE (08/24/2018) CREATININE-OUTSIDE LAB 0.77 0.6 - 1.2 MG/DL OU TSIDE LAB (SEE SCANNED REPORT) GFR ESTIMATED-OUTSIDE LAB 82.2 ML/MIN 1.73 M2 OUTSIDE LAB (SEE SCANNED REPORT) POTASSIUM-OUTSIDE LAB 4.1 3.5 - 5.1 MMOL/L OU TSIDE LAB (SEE SCANNED REPORT) GLUCOSE-OUTSIDE LAB 113(A) 70 - 99 MG/DL OUTSIDE LAB (SEE SCANNED REPORT) HOURS FASTING OUTSIDE LAB (S EE SCANNED REPORT) TRIGLYCERIDES-OUTSIDE LAB OU TSIDE LAB (SEE SCANNED REPORT) CHOLESTEROL-OUTSIDE LAB OUTS YESI LAB (SEE SCANNED REPORT) HDL-OUTSIDE LAB OUTSIDE LAB (SEE SCANNED REPORT) CHOL/HDL RATIO-OUTSIDE LAB O UTSIDE LAB (SEE SCANNED REPORT) LDL (CALCULATED)-OUTSIDE LAB OUTSIDE LAB (SEE SCANNED REPORT) LDL (DIRECT MEASURE)-OUTSIDE LAB OUTSIDE LAB (SEE SCANNED REPORT) HEMOGLOBIN, [id number] LAB OUTSIDE LAB (SEE SCANNED REPORT) PHOSPHORUS-OUTSIDE LAB OUTSI DE LAB (SEE SCANNED REPORT) PTH-OUTSIDE LAB OUTSIDE LAB (SEE SCANNED REPORT) MICROALBUMIN RATIO-OUTSIDE LAB OUTSIDE LAB (SEE SCANNED REPORT) PROTEIN, UA-OUTSIDE LAB OUTS YESI LAB (SEE SCANNED REPORT) HEMOGLOBIN-OUTSIDE LAB 11.4(A) 12.0 - 16.0 G/DL O UTSIDE LAB (SEE SCANNED REPORT) CHEMISTRY COMMENT-OUTSIDE LAB Comment:CBCD,ALCOHO L,CMP, - SEE SCAN OUTSIDE LAB (SEE SCANNED REPORT) Narrative Performed At Performing Organization Address City/State/Zipcod e Phone Number OUTSIDE LAB (SEE SCANNED REPORT) in this encounter Advance Directives Patient has advance care planning documents on file. For more information, please contact: [employer] [place], [place] [phone]
--- OUTSIDE RECORDS SUMMARY | 2023-05-10 23:16 | External Medical Summary ---
Author Name UNSPECIFIED Organization [facility] History of Encounters Reason for Assessment: Start of care - f urther visits planned Inpatient discharge facility: Past 14 Da ys: Discharged From [facility] [place] Most Recent Inpatient Discharge Date: Functional Assessment High Risk Factor: Obesity Patient Living Situation: Patient lives with other person(s) in the home: Around the clock Frequency Of Pain Interferin g With Patient's Activity Or Movement: Daily, but not constantly Does this patient have a Ris k of Developing Pressure Ulcers: No When Dyspneic: When walking more th an 20 feet, climbing stairs Urinary Incontinence or Urin nick Catheter Present: Patient is incontinent When Urinary Incontinence Occurs: During the day and night Bowel Incontinence Frequency: Very rarel y or never has bowel incontinence When Confused (Reported or Observed): In new or complex situations only When Anxious (Reported or Observed): Les s often than daily Cognitive and Behavioral and Psychiatric Symptoms: None Current Ability: Bathing: able to partic ipate in bathing self in shower or tub, but requires presence of another person throughout the bath for assistance or supervision. Current Ability: Ambulation: Requires us e of a two-handed device (e.g., walker or crutches) to walk alone on a level surface and/or requires human supervision or assistance to negotiate stairs or steps or uneven surfaces. Has Patient Had A Multi-fact or Fall Risk Assessment? Yes, and it indicates a risk for falls Current: Management Of Oral Medications: Able to take medication(s) at the correct times if: (a) individual dosages are prepared in advance by another person; OR (b) another person develops a drug diary or chart Current: Management Of Injec table Medications: Able to take injectable medication(s) at the correct times if: (a) individual syringes are prepared in advance by another person; OR (b) another person develops a drug diary or chart. How Often Recv ADL Or IADL A ssistance From Any: At least daily Procedures Therapies Received at Home: None Respiratory treatments utilized at home: Respiratory Treatments: Airway Pressure Respiratory treatments utilized at home: Respiratory Treatments: Oxygen Problems Primary Home Care Diagnosis ICD Code: M4 8.061^ Home Care Diagnosis 1: ICD Code: G80.9, Cerebral palsy, unspecified Home Care Diagnosis 1: Severity Ratin Home Care Diagnosis 2: ICD Code: M79.7, Fibromyalgia Home Care Diagnosis 2: Severity Ratin Home Care Diagnosis 3: ICD Code: E11.40, Type 2 diabetes mellitus with diabetic neuropathy, unsp Home Care Diagnosis 3: Severity Ratin Home Care Diagnosis 4: ICD Code: G47.33, Obstructive sleep apnea (adult) (pediatric) Home Care Diagnosis 4: Severity Ratin Home Care Diagnosis 5: ICD Code: I87.2, Venous insufficiency (chronic) (peripheral) Home Care Diagnosis 5: Severity Ratin Has Skin Lesion Or Open Wound: No Inpatient Stay Within Last 1 4 Days: ICD Code 1: M48.061^
--- OUTSIDE RECORDS SUMMARY | 2023-05-10 23:16 | External Medical Summary | Summary of Care ---
Author Name Unknown Organization [facility] Address [place] [address] Care Team Providers Care Animal Scientist Name Role Phone Rajwinder Carter DO Primary Care Provider [phone] Encounter Details Date Type Department Care Team Description 08/27/2018 Orders Only [place] [address] [place] [address] Rajwinder Carter DO [address] [place] [address] [phone] Allergies Active Allergy Reactions Severity Noted Date [...] ([facility]) Use with Lantus Solostar at bedtime 30 Each 3 10/11/2017 Active nystatin 660196 UNIT/GM creamIndications:Can didal vulvovaginitis Apply topically to affected area 2 times a day. To affacted area for two weeks. 15 g 2 10/12/2017 Active Blood Glucose Monitoring Suppl ([employer]) w/Device KITIndications:Type 2 diabetes mellitus with hemoglobin A1c goal of less than 7.0% (HCC) Use up to 4 times a day E11.9 1 Kit 0 10/17/2017 Active Glucose Blood (QuickGiftsTOUCH VERIO) STRP Use up to four times [...] this encounter Active Problems Problem Noted Date TAHD on CPAP 12/26/2017 Cirrhosis of liver [...] pain 01/24/2012 01/17/2017 Genetic Sleep Disorder Research Other*[id number] 05/13/2011 04/07/2016 Obstructive sleep apnea 01/18/2011 12/27/19 [...] Carter DO [address] [place] [address] [phone] 09/21/2018 Pharmacy Pharmacy [facility] [address] [facility] [place] [address] [phone] 09/24/2018 Nutrition Services Gastroenterology Melissa Omalley, [place] [address] [facility] [address] [place] [address] [phone] 09/24/2018 Office Visit Gastroenterology Lyssa Stout CRNP [address] [place] [address] [phone] 09/26/2018 Nurse Only Gastroenterology Nurse Anthony Fernandes [address] [place] [address] [phone] 10/02/2018 Office Visit Sleep Disorders Lanette Fields CRNP [address] [place] [address] [phone] 12/19/2018 Office Visit Gynecology Obstetrics Irene Mujica CRNP [address] [place] [address] [phone] 06/18/2019 Office Visit Optometry Oskar Jarett Lam, OD [address] [place] [address] [phone] Health Maintenance Due Date Last Done Comments [...] Date/Time Associated Diagnosis Comments CHEMISTRY-OUTSIDE Routine 08/24/2018 in this encounter Results * CHEMISTRY-OUTSIDE (08/24/2018) CREATININE-OUTSIDE LAB OUTSI DE LAB (SEE SCANNED REPORT) GFR ESTIMATED-OUTSIDE LAB OU TSIDE LAB (SEE SCANNED REPORT) POTASSIUM-OUTSIDE LAB OUTSID E LAB (SEE SCANNED REPORT) GLUCOSE-OUTSIDE LAB OUTSIDE LAB (SEE SCANNED REPORT) HOURS FASTING OUTSIDE LAB (S EE SCANNED REPORT) TRIGLYCERIDES-OUTSIDE LAB OU TSIDE LAB (SEE SCANNED REPORT) CHOLESTEROL-OUTSIDE LAB OUTS YESI LAB (SEE SCANNED REPORT) HDL-OUTSIDE LAB OUTSIDE LAB (SEE SCANNED REPORT) CHOL/HDL RATIO-OUTSIDE LAB O UTSIDE LAB (SEE SCANNED REPORT) LDL (CALCULATED)-OUTSIDE LAB OUTSIDE LAB (SEE SCANNED REPORT) LDL (DIRECT MEASURE)-OUTSIDE LAB OUTSIDE LAB (SEE SCA NNED REPORT) HEMOGLOBIN, [id number]-[id number] LAB OUTSIDE LAB (SEE SCANNED REPORT) PHOSPHORUS-OUTSIDE LAB OUTSI DE LAB (SEE SCANNED REPORT) PTH-OUTSIDE LAB OUTSIDE LAB (SEE SCANNED REPORT) MICROALBUMIN RATIO-OUTSIDE LAB OUTSIDE LAB (SEE SCA NNED REPORT) PROTEIN, UA-OUTSIDE LAB NEG NEG OUTS YESI LAB (SEE SCANNED REPORT) HEMOGLOBIN-OUTSIDE LAB OUTSI DE LAB (SEE SCANNED REPORT) CHEMISTRY COMMENT-OUTSIDE LAB Comment:UA ,DRUG PROFILE- SEE SCAN OUTSIDE LAB (SEE SCANNED REPORT) Narrative Performed At Performing Organization Address City/State/Zipcod e Phone Number OUTSIDE LAB (SEE SCANNED REPORT) in this encounter Advance Directives Patient has advance care planning documents on file. For more information, please contact: [place] [phone]
--- OUTSIDE RECORDS SUMMARY | 2023-05-10 23:16 | External Medical Summary | Summary of Care ---
Author Name Unknown Organization [facility] [place] [address] Care Team Providers Care Branch Account Executive Name Role Phone JohnbrianRajwinder thacker Primary Care Provider Encounter Details Date Type Department Care Team Description 08/24/2018 Result Scan Unspecified Department <No scans attached> [...] 7.0% ([facility]) Use with Lantus Solostar at bedtime 30 Each 3 10/11/2017 Active nystatin 463885 UNIT/GM creamIndications:Can didal vulvovaginitis Apply topically to affected area 2 times a day. To affacted area for two weeks. 15 g 2 10/12/2017 Active Blood Glucose Monitoring Suppl (Dental KidzTOUCH VERIO) w/Device KITIndications:Type 2 diabetes mellitus with [...] tabletIndications:Ce rebral palsy, unspecified type ([facility]) Take 1 [...] pain 01/24/2012 01/17/2017 Genetic Sleep Disorder Research Other*[id number] 05/13/2011 04/07/2016 Obstructive sleep apnea 01/18/2011 12/27/19 [...] Care Team Description 09/21/2018 Pharmacy Pharmacy [facility] [address] [facility] [place] [address] [phone] 09/24/2018 Nutrition Services Gastroenterology Melissa Omalley, SAMANTHA [address] [place] [address] [facility] [place] [id number] 09/24/2018 Office Visit [facility]astroenterology [facility] [address] [facility] [address] [phone] 09/26/2018 Nurse Only Gastroenterology Nurse Anthony Fernandes [address] [facility] [address] [phone] 10/02/2018 Office Visit Sleep Disorders Lanette Fields CRNP [address] [facility] [place] [address] [phone] 11/26/2018 Office Visit Family Medicine Rajwinder Carter [facility] [address] [facility] [address] [phone] 12/19/2018 Office Visit Gynecology Obstetrics Irene Mujica CRNP [address] [facility] [place] [address] [phone] 06/18/2019 Office Visit Optometry Jarett Schmitt, OD [address] [place], [place] [address] Health Maintenance Due Date Last Done Comments [...] Date/Time Associated Diagnosis Comments OUTSIDE LAB RESULTS 08/24/2018 in this encounter Results * OUTSIDE LAB RESULTS (08/24/2018) Narrative Performed At in this encounter Advance Directives Patient has advance care planning documents on file. For more information, please contact: [place] [phone]
--- OUTSIDE RECORDS SUMMARY | 2023-05-10 23:16 | External Medical Summary | Summary of Care ---
Author Name Unknown Organization [facility] Address [place] [address] Care Team Providers Care Cable Former Name Role Phone Rajwinder Carter DO Primary Care Provider [phone] Reason for Visit * Reason Comments Hospital Follow-Up Encounter Details Date Type Department Care Team Description 08/28/2018 Office Visit [place] [address] [place] [address] Rajwinder Carter DO [facility] [address] [phone] Hospital discharge follow-up*; Cerebral palsy, unspecified type [...] bedtime 30 Each 3 10/11/2017 Active nystatin 587071 UNIT/GM creamIndications:Can didal vulvovaginitis Apply topically to affected area 2 times a day. To affacted area for two weeks. 15 g 2 10/12/2017 Active Blood Glucose Monitoring Suppl ([employer] VERIO) w/Device KITIndications:Type 2 diabetes mellitus with hemoglobin A1c goal of less than 7.0% (HCC) Use up to 4 times a day E11.9 1 Kit 0 10/17/2017 Active Glucose Blood (Badongo.comTOUCH VERIO) STRP Use up to four times [...] pain 01/24/2012 01/17/2017 Genetic Sleep Disorder Research Other*[id number] 05/13/2011 04/07/2016 Obstructive sleep apnea 01/18/2011 12/27/19 [...] - - Body Mass Index - - in this encounter Progress Notes * Rajwinder Carter, - 08/28/2018 10:59 AM EST SUBJECTIVE: Chief Complaint Patient presents with Hospital Follow-Up HPI: Shaina Shaw is a 63 year old female who presents today for hospital follow-up. Pt was admitted to [facility] on 07/21. There is no discharge summary available, only a medication list. Unclear if any changes were made. Pt returned to the ED on 08/24 requesting to be discharged to a usp. Case management did evaluate her and it was not felt that any acute criteria were met for admission. She was discharged to home on 07/18. Pt repeatedly states that she just wants to go back to the usp. She states that her insurance ran out [...] Chronic pain syndrome G89.4 MEDICATION USE AGREEMENT [id number] History of Clostridium difficile colitis Z86.19 Cirrhosis of liver ([facility]) K74.60 THAD on CPAP G47.33, Z99.89 Current [...] 500 mg by mouth daily. Glucose Blood (Badongo.comTOUCH VERIO) STRP Use up to four times a day as directed.DX:E11.9 400 Strip 3 Blood Glucose Monitoring Suppl (ONETOUCH VERIO) w/Device KIT Use up to 4 times a day E11.9 1 Kit 0 nystatin 163988 UNIT/GM cream Apply topically to affected area [...] normal bx, repeat 10 yrs/[facility] DENTAL SURGERY PROCEDURE NEC wisdom teeth x 4 DILATION AND CURETTAGE (D&C) EGD, FLEXIBLE, DIAGNOSTIC 10/04/2016 gastritis/[facility] EGD, FLEXIBLE, DIAGNOSTIC 01/11/2018 eso varices, retained food, repeat 1 yr/[facility] PELVIS/HIP JOINT SURGERY NEC teenager aid in walking REPAIR/GRAFT ACHILLES TENDON age 40 aid in walking Review of patient's allergies indicates: Allergen Reactions Pcn [Penicillins] Rash Family History Problem Relation Age of Onset Heart Disorder Father of ID at age 61 Heart Disorder Mother of ID age 72 Diabetes Father Cancer None Arthritis [...] encounter diagnosis) G80.9 Cerebral palsy, unspecified type ([facility]) M48.061 Spinal stenosis of lumbar region without neurogenic claudication Plan: Pt repeatedly requests placement today. She states that she left the usp because insurance ran out. She is not [...] reported that they would work on this. Nursin. Disch med recon cur med lis Follow up: Return in about 3 months (around 11/26/2018). Rajwinder Carter DO in this encounter Nursing Notes * Kike Fregoso LPN - 08/28/2018 10:46 AM EST Pt presents as hosp follow [facility] Reports cannot get around home in this encounter Plan of Treatment Upcoming Encounters Date Type Specialty Care Team Description 09/21/2018 Pharmacy Pharm[facility] [address] [facility] [address] [phone] 09/24/2018 Nutrition Services Gastroenterology Melissa Omalley, RDN [address] [place] [address] [phone] 09/24/2018 Office Visit Gastroenterology Lyssa Stout CRNP [address] [facility] [place] [address] [phone] 09/26/2018 Nurse Only Gastroenterology Nurse Anthony Fernandes [address] [facility] [place] [address] [phone] 10/02/2018 Office Visit Sleep Disorders Lanette Fields CRNP [address] [facility] [place] [address] [phone] 11/26/2018 Office Visit Family Medicine Rajwinder Carter, DO [address] [place] [address] [phone] 12/19/2018 Office Visit Gynecology Obstetrics Irene Mujica CRNP [address] [facility] [place] [address] [phone] 06/18/2019 Office Visit Optometry Jarett Schmitt, OD [address] [place] [address] [phone] Health Maintenance Due Date Last Done Comments [...] fileas of this encounter Visit Diagnoses Diagnosis Hospital discharge follow-up- Primary Other follow-up examination Cerebral palsy, unspecified type (HCC) Spinal stenosis of lumbar region without neurogenic claudication Spinal stenosis, lumbar region, without neurogenic claudication in this encounter Advance Directives Patient has advance care planning documents on file. For more information, please contact: [place] [phone]"
--- OUTSIDE RECORDS SUMMARY | 2023-05-10 23:16 | External Medical Summary ---
Author Name Unknown Address [address] [place] [address] Phone Organization K01:[facility] [address] [id number] Laboratory Report Ordering Provider Test Date Status SAMEER LUCERO 09/21/2018 11:23:00 Final Observation Date Value Abnormality Reference Status HbA1C 09/21/2018 23:48 6.1 Above high normal 4.0-5 .6 Final Performing Location [facility] [address] [facility] [address]
--- OUTSIDE RECORDS SUMMARY | 2023-05-10 23:16 | External Medical Summary | Summary of Care ---
Author Name Unknown Organization [place] [address] Care Team Providers Care Flight Reservations Manager Name Role Phone JohnbrianRajwinder thacker Primary Care Provider [phone] Encounter Details Date Type Department Care Team Description 08/24/2018 Scan Encounter Unspecified Department <No scans attached> [...] ([facility]) Use with Lantus Solostar at bedtime 30 Each 3 10/11/2017 Active nystatin 530439 UNIT/GM creamIndications:Can didal vulvovaginitis Apply topically to affected area 2 times a day. To affacted area for two weeks. 15 g 2 10/12/2017 Active Blood Glucose Monitoring Suppl (Pluto.TVTOUCH VERIO) w/Device KITIndications:Type 2 diabetes mellitus with [...] MG per tabletIndications:Ce rebral palsy, unspecified type ([facility]) Take 1 Tab by mouth 2 times [...] pain 01/24/2012 01/17/2017 Genetic Sleep Disorder Research Other*[id number] 05/13/2011 04/07/2016 Obstructive sleep apnea 01/18/2011 12/27/19 [...] Carter DO [address] [facility] [address] [phone] 09/21/2018 Pharmacy Pharmacy [facility] [address] [facility] [address] [phone] 09/24/2018 Nutrition Services Gastroenterology Melissa Omalley, [place] [address] [facility] [place] [address] [phone] 09/24/2018 Office Visit Gastroenterology Lyssa Stout CRNP [address] [facility] [place] [address] [phone] 09/26/2018 Nurse Only Gastroenterology Nurse Anthony Fernandes 132 [facility] [place] [address] [phone] 10/02/2018 Office Visit Sleep Disorders Lanette Fields CRNP [address] [facility] [place] [address] [phone] 12/19/2018 Office Visit Gynecology Obstetrics Irene Mujica CRNP 132 [facility] [place] [address] [phone] 06/18/2019 Office Visit Optometry Jarett Schmitt, OD [address] [place] [address] Health Maintenance Due Date Last [...] For more information, please contact: [place] [phone]
--- OUTSIDE RECORDS SUMMARY | 2023-05-10 23:16 | External Medical Summary | Summary of Care ---
Author Name Unknown Organization [facility] Address [place] [address] Care Team Providers Care Geriatric Assistant Name Role Phone ArabellaRajwinder thacker Primary Care Provider [phone] Encounter Details Date Type Department Care Team Description 07/25/2018 Scan Encounter Sleep Disorders, [facility] [address] [place] [address] Vielka Sandoval MD [address] [facility] [address] [place] [address] <No scans attached> Allergies Active [...] bedtime 30 Each 3 10/11/2017 Active nystatin 365394 UNIT/GM creamIndications:Can didal vulvovaginitis Apply topically to affected area 2 times a day. To affacted area for two weeks. 15 g 2 10/12/2017 Active Blood Glucose Monitoring Suppl (Pin-DigitalTOUCH VERIO) w/Device KITIndications:Type 2 diabetes mellitus with hemoglobin A1c goal of less than 7.0% (HCC) Use up to 4 times a day E11.9 1 Kit 0 10/17/2017 Active Glucose Blood (Pin-DigitalTOUCH VERIO) STRP Use up to four times [...] ([facility]) Inject 24 units at bed time 5 [...] Pain, Mild. 30 Tab 0 07/13/2018 Active as of this encounter Active Problems [...] pain 01/24/2012 01/17/2017 Genetic Sleep Disorder Research Other*[id number] 05/13/2011 04/07/2016 Obstructive sleep apnea 01/18/2011 12/27/19 [...] 08/23/2018 Office Visit Dermatology Rachel Hill MD [address] [place] [address] [phone] 08/28/2018 Office Visit Family Medicine Rajwinder Carter DO [address] [facility] [address] [phone] 09/21/2018 Pharmacy Pharmacy [facility] [address] [place] [facility] [place] [address] [phone] 09/24/2018 Nutrition Services Gastroenterology Melissa Omalley, [place] [address] [facility] [address] [place] [address] [phone] 09/24/2018 Office Visit Gastroenterology Lyssa Stout CRNP 132 [facility] [place] [address] [phone] 09/26/2018 Nurse Only Gastroenterology Nurse Anthony Fernandes [address] [place] [address] [phone] 10/02/2018 Office Visit Sleep Disorders Lanette Fields CRNP 132 [facility] [place] [address] [phone] 12/19/2018 Office Visit Gynecology Obstetrics Irene Mujica CRNP 132 [facility] [place] [address] [phone] 06/18/2019 Office Visit Optometry OskarJarett burnett, OD [address] [place] [address] Health Maintenance Due Date [...] For more information, please contact: [place] [phone]
--- OUTSIDE RECORDS SUMMARY | 2023-05-10 23:17 | External Medical Summary | Summary of Care ---
Author Name Unknown Organization [facility] Address [place] [address] Care Team Providers Care Blow Mold Operator Name Role Phone Rajwinder Carter DO Primary Care Provider [phone] Reason for Visit * Reason Comments Advice Encounter Details Date Type Department Care Team Description 07/19/2018 Telephone [place] [address] [place] [address] Rajwinder Carter DO [address] [place] [address] [phone] Advice Allergies Active Allergy Reactions Severity Noted [...] bedtime 30 Each 3 10/11/2017 Active nystatin 627667 UNIT/GM creamIndications:Can didal vulvovaginitis Apply topically to affected area 2 times a day. To affacted area for two weeks. 15 g 2 10/12/2017 Active Blood Glucose Monitoring Suppl (MumsWay VERIO) w/Device KITIndications:Type 2 diabetes mellitus with hemoglobin A1c goal of less than 7.0% (HCC) Use up to 4 times a day E11.9 1 Kit 0 10/17/2017 Active Glucose Blood (DAQRITOUCH VERIO) STRP Use up to four times [...] BY MOUTH AT BEDTIME 30 Tab 0 07/06/2018 Active HYDROcodone-acetamin ophen 5-325 mg per tab [...] pain 01/24/2012 01/17/2017 Genetic Sleep Disorder Research Other*[id number] 05/13/2011 04/07/2016 Obstructive sleep apnea 01/18/2011 12/27/19 [...] Telephone Encounter - Susan Rosales RN - 07/19/2018 9:41 AM EST called Shaina she is having increase anxiety ask if she spoke to her consoler and she has and the consoler suggested calling her PCP. Patient does not have a psychiatrist that she sees. Advised she can go to the ER and tell them she is having increase anxiety they can EVAL for admission or out patient therapy, she can go to the [facility] they would do the same thing or if she wants someone to come to her home she can call [facility] which she has the number. Patient is not suicida at this time. She will decide what she wants to dol * Telephone Encounter - Che Carmen LPN - 07/19/2018 8:37 AM EST Call from patient, asking to be admitted somewhere , either a hospital for help or an inpatient rehab facility. " I can't take it anymore at home". Can't even get out of bed by herself. Reports her 's niece has taken her Tramadol, had to have the police there. Niece causing many problems perpatient. Reports she can't put any pressure on right foot. Reports has a social wsork named Dulce Angulo from "[facility]" Patient reports she is willing to go to a hospital if it means she can get more rehabhelp . Specifically asking for admission to [facility]. Reports has been having anxiety attacks more frequent lately. Asking for your help in this matter. * Telephone Encounter - Marcelle Rosales, THAD - 07/19/2018 8:36 AM EST Reason for patient's call: wants to speak with nurse regarding weak legs Caller was transferred to [facility] at the dedicated phone nurse line. in this encounter Plan of Treatment Upcoming Encounters Date Type Specialty Care Team Description 08/07/2018 Office Visit Sleep Disorders Lanette Fields CRNP [address] [facility] [place] [address] [phone] [place] Nurse Sleep Disorders [address] [facility] [place] [address] [phone] 08/21/2018 Office Visit Family Medicine Rajwinder Carter, DO [address] [place] [facility] [place] [address] [phone] 08/23/2018 Office Visit Dermatology Rachel Hill MD [address] [place] [address] [phone] 09/21/2018 Pharmacy Pharmacy [facility] [address] [place] [address] [phone] 09/24/2018 Nutrition Services Gastroenterology Melissa Omalley, RDN [address] [place] [id number] 09/24/2018 Office Visit Gastroenterology Lyssa Stout CRNP [address] [place] [address] [phone] 09/26/2018 Nurse Only Gastroenterology Nurse Anthony Fernandes [address] [place] [address] [phone] 12/19/2018 Office Visit Gynecology Obstetrics Irene Mujica CRNP [address] [place] [address] [phone] 06/18/2019 Office Visit Optometry Jarett Schmitt, OD 16 [facility] [place] [address] Health Maintenance Due Date [...] history exists DIABETES-URINE MICROALBUMIN EVERY 12 MONTHS 06/16/2019 06/16/2018, 02/06/2018, 11/17/2017, Additional history exists PAP SMEAR-EVERY 3 YRS,AGES [...] For more information, please contact: [place] [phone]
--- OUTSIDE RECORDS SUMMARY | 2023-05-10 23:17 | External Medical Summary | Summary of Care ---
Author Name Unknown Organization [facility] Address [place] [address] Care Team Providers Care Cost Report Clerk Name Role Phone RaulRajwinder Primary Care Provider [phone] Reason for Visit * Reason Comments eRx-Medication Refill Encounter Details Date Type Department Care Team Description 08/03/2018 Refill [facility] [address] [place] [address] Brianne Pal PA-C [address] [place] [address] [phone] Allergies Active Allergy Reactions Severity Noted Date [...] bedtime 30 Each 3 8 Active nystatin 822546 UNIT/GM creamIndications:Ca ndidal vulvovaginitis Apply topically to affected area 2 times a day. To affacted area for two weeks. 15 g 2 8 Active Blood Glucose Monitoring Suppl (Cono-CIO) w/Device KITIndications:Type 2 diabetes mellitus with hemoglobin A1c goal of less than 7.0% (HCC) Use up to 4 times a day E11.9 1 Kit 0 8 Active Glucose Blood (FORMA TherapeuticsTOUCH VERIO) STRP Use up to four times a day as directed.DX:E11 .9 400 Strip 3 8 Active vitamin c (ASCORBIC ACID) 500 MG Tablet Take 500 mg by mouth daily. 0 Active BD PEN NEEDLE MINI U/F 31G X 5 MMIndications:Type 2 diabetes mellitus with hemoglobin A1c goal of less than 7.0% (HCC) Use with Basaglar at bedtime. 30 Each 11 8 Active escitalopram (LEXAPRO) 20 MG Tablet Take [...] in pm, 180 Cap 5 8 Active Dulaglutide (TRULICITY) 1.5 MG/0.5ML SOPNIndications:Typ e 2 diabetes mellitus with hemoglobin A1c goal of less than 7.0% ([facility]) Inject 1 syringeful once weekly 4 Pre-filled Pen Syringe Dosing Unit 5 8 Active insulin glargine (LANTUS SOLOSTAR) 100 UNIT/ML SOPNIndications:Typ e 2 diabetes mellitus with hemoglobin A1c goal of less than 7.0% ([facility]) Inject 24 units at bed time 5 Pre-filled Pen Syringe Dosing Unit 3 8 Active oxybutynin (DITROPAN) 5 MG Tablet Take 1 Tab by mouth 2 times a day. Through urology 60 Tab 5 8 Active HYDROcodone-acetami nophen 5-325 mg per tab 5-325 MG per tabletIndications:C erebral palsy, unspecified type ([facility]) Take 1 Tab by mouth 2 times a day as needed for Pain, Mild. 30 Tab 0 8 Active cyclobenzaprine (FLEXERIL) 10 MG Tablet TAKE 1 TABLET BY MOUTH AT BEDTIME 30 Tab 0 8 Active cyclobenzaprine (FLEXERIL) 10 MG Tablet TAKE 1 TABLET BY MOUTH AT BEDTIME 30 Tab 0 8 11/23/20 18 Discontinued as of this encounter Active Problems [...] pain 01/24/2012 01/17/2017 Genetic Sleep Disorder Research Other*[id number] 05/13/2011 04/07/2016 Obstructive sleep apnea 01/18/2011 12/27/19 [...] Telephone Encounter - Bob Rapp MD - 08/03/2018 4:14 PM EST Signed Prescriptions: Disp Refills cyclobenzaprine (FLEXERIL) 10 MG Tablet 30 Tab 0 Sig: TAKE 1 TABLET BY MOUTH AT BEDTIME Authorizing Provider: BOB RAPP * Telephone Encounter - Jovana Lambert RN - 08/03/2018 3:05 PM EST Pending Prescriptions: Disp Refills cyclobenzaprine (FLEXERIL) 10 MG Tablet [*30 Tab 0 Sig: TAKE 1 TABLET BY MOUTH AT BEDTIME * Telephone Encounter - Vivian Izquierdo DEVAN Glover - 08/03/2018 3:03 PM EST Pending Prescriptions: Disp Refills cyclobenzaprine (FLEXERIL) 10 MG Tablet [*30 Tab 0 Sig: TAKE 1 TABLET BY MOUTH AT BEDTIME * Telephone Encounter - TimboVivian DEVAN Glover - 08/03/2018 3:03 PM EST Pending Prescriptions: Disp Refills cyclobenzaprine (FLEXERIL) 10 MG Tablet [*30 Tab 0 Sig: TAKE 1 TABLET BY MOUTH AT BEDTIME Last Office Visit: 07/13/2018 Next Office Visit: 08/21/2018 Scheduled Provider(s): Rajwinder Carter DO Last date the medication was ordered: 07/06/18 Patient Active Problem List Diagnosis Code Spinal [...] of less than 7.0% ([facility]) E11.9 Vitamin D deficiency E55.9 Restrictive lung disease J98.4 Obesity, morbid (more than 100 lbs over ideal weight or BMI > 40) ([facility]) E66.01 Dyslipidemia, goal LDL below 70 E78.5 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 R39.81 Acquired hypothyroidism E03.9 Chronic pain syndrome G89.4 MEDICATION USE AGREEMENT [id number] History of Clostridium difficile colitis Z86.19 Cirrhosis of liver (HCC) K74.60 THAD on CPAP G47.33, Z99.89 Labs: CREATININE-OUTSIDE LAB(MG/DL) [place] Dt/Tm Resulted Value Status 07/19/18 07/19/18 0.82 FINAL POTASSIUM-OUTSIDE LAB(MMOL/L) [facility] Dt/Tm Resulted Value Status 07/11/18 07/12/18 4.2 FINAL TSH(uIU/mL) [place] Dt/Tm Resulted Value Status 03/28/18 4:20P 03/28/18 0.02* FINAL LDL (DIRECT MEASURE)(mg/dL) [facility] Dt/Tm Resulted Value Status 10/11/17 1:18P 10/11/17 57 FINAL 02/01/17 11:19A 02/01/17 101 FINAL ALT(U/L) [facility] Dt/Tm Resulted Value Status 02/13/18 3:27P 02/13/18 26 FINAL Hemoglobin AIC Results: HEMOGLOBIN, A1C(%) [place] Dt/Tm Resulted Value Status 02/13/18 3:27P 02/13/18 7.1* FINAL 10/11/17 1:18P 10/11/17 6.9* FINAL 03/28/17 3:31P 03/28/17 6.6* FINAL in this encounter Plan of Treatment Upcoming Encounters Date Type Specialty Care Team Description 08/21/2018 Office Visit Family Medicine Rajwinder Carter DO [address] [place] [address] [phone] 08/23/2018 Office Visit Dermatology Rachel Hill MD [address] [place] [address] [phone] 09/21/2018 Pharmacy Pharmacy [facility] [address] [facility] [place] [address] [phone] 09/24/2018 Nutrition Services Gastroenterology Melissa Omalley, [place] [address] [facility] [place] [address] [phone] 09/24/2018 Office Visit Gastroenterology Lyssa Stout CRNP [address] [facility] [place] [address] [phone] 09/26/2018 Nurse Only Gastroenterology Nurse Anthony Fernandes 132 [facility] [place] [address] [phone] 10/02/2018 Office Visit Sleep Disorders Lanette Fields CRNP [address] [facility] [place] [address] [phone] 12/19/2018 Office Visit Gynecology Obstetrics Irene Mujica CRNP 132 [facility] [place] [address] [phone] 06/18/2019 Office Visit Optometry Jarett Schmitt, OD [address] [place] [address] [phone] Health Maintenance Due Date Last Done Comments [...] For more information, please contact: [place] [address]
--- OUTSIDE RECORDS SUMMARY | 2023-05-10 23:17 | External Medical Summary | Summary of Care ---
Author Name Unknown Organization [facility] Address [place] [address] Care Team Providers Care Criminal Records Technician Name Role Phone Rajwinder Carter DO Primary Care Provider [phone] Reason for Visit * Reason Comments Advice fix wheelchair Encounter Details Date Type Department Care Team Description 08/21/2018 Telephone [place] [address] [place] [address] Rajwinder Carter DO [address] [place] [address] [phone] Advice (fix wheelchair) Allergies Active Allergy Reactions [...] bedtime 30 Each 3 10/11/2017 Active nystatin 816508 UNIT/GM creamIndications:Can didal vulvovaginitis Apply topically to affected area 2 times a day. To affacted area for two weeks. 15 g 2 10/12/2017 Active Blood Glucose Monitoring Suppl (YouLicenseTOUCH VERIO) w/Device KITIndications:Type 2 diabetes mellitus with hemoglobin A1c goal of less than 7.0% (HCC) Use up to 4 times a day E11.9 1 Kit 0 10/17/2017 Active Glucose Blood (YouLicenseTOUCH VERIO) STRP Use up to four times [...] pain 01/24/2012 01/17/2017 Genetic Sleep Disorder Research Other*[id number] 05/13/2011 04/07/2016 Obstructive sleep apnea 01/18/2011 12/27/19 [...] and faxed to [facility] in [place] * Telephone Encounter - Dulce Call OSA - 08/21/2018 10:15 AM EST Pt Wants order placed for [facility] [place]. Wheel chair foot Rest Broke. Needs repairman tocome to house and Fix it in this encounter Plan of Treatment Upcoming Encounters Date Type Specialty Care Team Description 08/23/2018 Office Visit Dermatology Rachel Hill MD [address] [place] [address] [phone] 08/28/2018 Office Visit Family Medicine Rajwinder Carter DO [address] [place] [address] [phone] 09/21/2018 Pharmacy [facility] [address] [facility] [place] [address] [phone] 09/24/2018 Nutrition Services Gastroenterology Melissa Omalley, SAMANTHA [address] [facility] [address] [facility] [address] [place] [id number] 09/24/2018 Office Visit Gastroenterology Lyssa Stout, ZAK [address] [facility] [place] [address] [phone] 09/26/2018 Nurse Only Gastroenterology Dom, Gastro Chau 132 [facility] [place], [place] [address] [phone] 10/02/2018 Office Visit Sleep Disorders Lanette Fields CRNP [address] [facility] [place] [address] [phone] 12/19/2018 Office Visit Gynecology Obstetrics Irene Mujica CRNP 132 [facility] [place] [address] [phone] 06/18/2019 Office Visit Optometry Jarett Schmitt, OD [address] [place] [address] Health Maintenance Due Date Last [...] For more information, please contact: [place] [address]
--- OUTSIDE RECORDS SUMMARY | 2023-05-10 23:17 | External Medical Summary | Summary of Care ---
Author Name Unknown Organization [facility] Address [place] [address] Care Team Providers Care Winch Derrick Operator Name Role Phone Rajwinder Carter DO Primary Care Provider [phone] Reason for Visit * Reason Comments Advice Encounter Details Date Type Department Care Team Description 07/20/2018 Telephone [place] [address] [place] [address] Rajwinder Carter DO [address] [place] [address] [phone] Advice Allergies Active Allergy Reactions Severity Noted [...] bedtime 30 Each 3 10/11/2017 Active nystatin 377240 UNIT/GM creamIndications:Can didal vulvovaginitis Apply topically to affected area 2 times a day. To affacted area for two weeks. 15 g 2 10/12/2017 Active Blood Glucose Monitoring Suppl ([employer] VERIO) w/Device KITIndications:Type 2 diabetes mellitus with hemoglobin A1c goal of less than 7.0% (HCC) Use up to 4 times a day E11.9 1 Kit 0 10/17/2017 Active Glucose Blood (AssetAvenueTOUCH VERIO) STRP Use up to four times [...] pain 01/24/2012 01/17/2017 Genetic Sleep Disorder Research Other*[id number] 05/13/2011 04/07/2016 Obstructive sleep apnea 01/18/2011 12/27/19 [...] Telephone Encounter - Michaelle Lindquist LPN - 07/20/2018 5:13 PM EST Letter signed and faxed. * Telephone Encounter - Rajwinder Carter DO - 07/20/2018 5:05 PM EST Please fax order to destroy narcotics. * Telephone Encounter - Janett Petit LPN - 07/20/2018 4:02 PM EST Janett director sanitation bureau at [facility] and pt has been admitted into the facility. Pt brought all her medications to the facility and it has been brought to her attention that the hydrocodone can not be sent home with the pts as is giving the narcotic to the niece that lives with them. pts healthcare representative has expressed this and is very concerned. Janett is not able to destroy the narcotic with out prescribing doctors permission. They are asking for an order pavel faxed to [phone] with directions to destroy the hydrocodone- mckenna 5-325mg. Current bottle has 29 tabs. Was filled on 07/13/18. If pt is in pain they have pain medication that can be given to her and then the facility doctor can write new orders for pain medication., any questions please call Janett at [phone] Janett asking for this to be addressed ihsan while the family is still at the facility as they cannot keep the meds once the leaves. * Telephone Encounter - Quyen Ruiz OSA - 07/20/2018 3:55 PM EST Reason for patient's call: patient has someone at home stealing her narcotics. Caller was transferred to Tonya at the dedicated phone nurse line. in this encounter Plan of Treatment Upcoming Encounters Date Type Specialty Care Team Description 08/07/2018 Office Visit Sleep Disorders [facility]ette Fields CRNP [address] [facility] [address] [phone] Nurse Kentrell Sleep Disorders [address] [facility] [address] [phone] 08/21/2018 Office Visit Family Medicine Rajwinder Carter [address] [place] [facility] [place] [address] [phone] 08/23/2018 Office Visit Dermatology Rachel Hill MD [address] [place] [address] [phone] 09/21/2018 Pharmacy Pharmacy [facility] [address] [place] [address] [phone] 09/24/2018 Nutrition Services Gastroenterology Melissa Omalley, SAMANTHA [address] [place] [address] [place] [address] [phone] 09/24/2018 Office Visit Gastroenterology Lyssa Stout CRNP [address] [facility] [address] [phone] 09/26/2018 Nurse Only Gastroenterology Nurse Anthony Fernandes 132 [facility] [place] [address] [phone] 12/19/2018 Office Visit Gynecology Obstetrics Irene Mujica CRNP 132 [facility] [place] [address] [phone] 06/18/2019 Office Visit Optometry Jarett Schmitt Lam, OD 16 [facility] [place] [address] Health Maintenance [...] For more information, please contact: [place] [phone]
--- OUTSIDE RECORDS SUMMARY | 2023-05-10 23:17 | External Medical Summary | Summary of Care ---
Author Name Unknown Organization [facility] Address [place] [address] Care Team Providers Care Workers' Compensation Claims Supervisor Name Role Phone Rajwinder Carter DO Primary Care Provider [phone] Reason for Visit * Reason Comments Advice Encounter Details Date Type Department Care Team Description 07/19/2018 Telephone [place] [address] [place] [address] Rajwinder Carter DO [address] [place] [address] [phone] Advice Allergies Active Allergy Reactions Severity Noted [...] bedtime 30 Each 3 10/11/2017 Active nystatin 506856 UNIT/GM creamIndications:Can didal vulvovaginitis Apply topically to affected area 2 times a day. To affacted area for two weeks. 15 g 2 10/12/2017 Active Blood Glucose Monitoring Suppl (pMDsoft VERIO) w/Device KITIndications:Type 2 diabetes mellitus with hemoglobin A1c goal of less than 7.0% (HCC) Use up to 4 times a day E11.9 1 Kit 0 10/17/2017 Active Glucose Blood (Trilogy International PartnersTOUCH VERIO) STRP Use up to four times [...] pain 01/24/2012 01/17/2017 Genetic Sleep Disorder Research Other*[id number] 05/13/2011 04/07/2016 Obstructive sleep apnea 01/18/2011 12/27/19 [...] Encounter - Susan Rosales RN - 07/19/2018 2:45 PM EST More anxiety right now * Telephone Encounter - Rajwinder Carter DO - 07/19/2018 11:49 AM EST I am a bit confused: 1. Is it an anxiety issue or a mobility issue? 2. Is she trying to get into rehab for strength training? * Telephone Encounter - Susan Rosales RN [...] a social wsork named Dulce Angulo from "[facility]" Patient reports she is willing to go to a hospital if it means she can get more rehabhelp . Specifically asking for admission to [facility]. Reports has been having anxiety attacks more frequent lately. Asking for your help in this matter. * Telephone Encounter - Marcelle Rosales, THAD - 07/19/2018 8:36 AM EST Reason for patient's call: wants to speak with nurse regarding weak legs Caller was transferred to [facility] at the dedicated phone nurse line. in this encounter Plan of Treatment Upcoming Encounters Date Type Specialty Care Team Description 08/07/2018 Office Visit Sleep Disorders Lanette Fields CRNP [address] [place] [address] [phone] Kentrell, Nurse Sleep Disorders [address] [place] [address] [phone] 08/21/2018 Office Visit Family Medicine Rajwinder Carter DO [address] [facility] [place] [address] [phone] 08/23/2018 Office Visit Dermatology Rachel Hill MD [address] [place] [address] [phone] 09/21/2018 Pharmacy Pharmacy [facility] [address] [facility] [address] [phone] 09/24/2018 Nutrition Services Gastroenterology Melissa Omalley RDN [address] [place] [address] [place] [address] 09/24/2018 Office Visit Gastroenterology Lyssa Stout CRNP [address] [place] [address] [phone] 09/26/2018 Nurse Only Gastroenterology Nurse Dom Gastro Chau 132 [facility] [place] [address] [phone] 12/19/2018 Office Visit Gynecology Obstetrics Irene Mujica CRNP [address] [facility] [place] [address] [phone] 06/18/2019 Office Visit Optometry Jarett Schmitt, OD 16 [facility] [place] [address] Health Maintenance [...] For more information, please contact: [place] [address]
--- OUTSIDE RECORDS SUMMARY | 2023-05-10 23:17 | External Medical Summary | Summary of Care ---
Author Name Unknown Organization [facility] Address [place] [address] Care Team Providers Care Inspector Soldering Name Role Phone Rajwinder Carter DO Primary Care Provider [phone] Reason for Visit * Reason Comments Advice Encounter Details Date Type Department Care Team Description 07/19/2018 Telephone [place] [address] [place] [address] Rajwinder Carter DO [address] [place] [address] [phone] Advice Allergies Active Allergy Reactions Severity Noted [...] bedtime 30 Each 3 10/11/2017 Active nystatin 942477 UNIT/GM creamIndications:Can didal vulvovaginitis Apply topically to affected area 2 times a day. To affacted area for two weeks. 15 g 2 10/12/2017 Active Blood Glucose Monitoring Suppl (COTA VERIO) w/Device KITIndications:Type 2 diabetes mellitus with hemoglobin A1c goal of less than 7.0% (HCC) Use up to 4 times a day E11.9 1 Kit 0 10/17/2017 Active Glucose Blood (AlianzaTOUCH VERIO) STRP Use up to four times [...] pain 01/24/2012 01/17/2017 Genetic Sleep Disorder Research Other*[id number] 05/13/2011 04/07/2016 Obstructive sleep apnea 01/18/2011 12/27/19 [...] a social wsork named Dulce Angulo from "[facility] [place] Patient reports she is willing to go to a hospital if it means she can get more rehabhelp . Specifically asking for admission to [facility]. Reports has been having anxiety attacks more frequent lately. Asking for your help in this matter. * Telephone Encounter - Marcelle Rosales, THAD - 07/19/2018 8:36 AM EST Reason for patient's call: wants to speak with nurse regarding weak legs Caller was transferred to [facility] at the dedicated phone nurse line. in this encounter Plan of Treatment Upcoming Encounters Date Type Specialty Care Team Description 08/07/2018 Office Visit Sleep Disorders Lanette Fields CRNP [address] [address] [phone] Kentrell Nurse Sleep Disorders 132 [facility] [place] [address] [phone] 08/21/2018 Office Visit Family Medicine Rajwinder Carter, DO [address] [place] [address] [phone] 08/23/2018 Office Visit Dermatology Rachel Hill MD [address] [place] [address] [phone] 09/21/2018 Pharmacy Pharmacy [facility] [address] [place] [address] [phone] 09/24/2018 Nutrition Services Gastroenterology Melissa Omalley RDN [address] [place] [address] [place] [id number] 09/24/2018 Office Visit Gastroenterology Lyssa Stout CRNP [address] [address] [phone] 09/26/2018 Nurse Only Gastroenterology Nurse Anthony Fernandes [address] [place] [address] [phone] 12/19/2018 Office Visit Gynecology Obstetrics Irene Mujica CRNP 132 [facility] [place] [address] [phone] 06/18/2019 Office Visit Optometry OskarJarett burnett, OD [address] [place] [address] Health Maintenance Due Date [...] For more information, please contact: [place] [phone]
--- OUTSIDE RECORDS SUMMARY | 2023-05-10 23:17 | External Medical Summary | Summary of Care ---
Author Name Unknown Organization [facility] Address [place] [address] Care Team Providers Care Recreation Programmer Name Role Phone Rajwinder Carter DO Primary Care Provider [phone] Encounter Details Date Type Department Care Team Description 07/19/2018 Orders Only [place] [address] [place] [address] Rajwinder Carter DO [address] [place] [address] [phone] Allergies Active Allergy Reactions Severity Noted Date [...] bedtime 30 Each 3 10/11/2017 Active nystatin 369227 UNIT/GM creamIndications:Can didal vulvovaginitis Apply topically to affected area 2 times a day. To affacted area for two weeks. 15 g 2 10/12/2017 Active Blood Glucose Monitoring Suppl (Granite HorizonIO) w/Device KITIndications:Type 2 diabetes mellitus with hemoglobin A1c goal of less than 7.0% (HCC) Use up to 4 times a day E11.9 1 Kit 0 10/17/2017 Active Glucose Blood (ReShape MedicalTOUCH VERIO) STRP Use up to four times [...] pain 01/24/2012 01/17/2017 Genetic Sleep Disorder Research Other*[id number] 05/13/2011 04/07/2016 Obstructive sleep apnea 01/18/2011 12/27/19 [...] Lanette Fields CRNP [address] [place] [address] [phone] Kentrell, Nurse Sleep Disorders [address] [place] [address] [phone] 08/21/2018 Office Visit Family Medicine Rajwinder Carter DO [address] [place] [address] [phone] 08/23/2018 Office Visit Dermatology Rachel Hill MD [address] [place] [address] [phone] 09/21/2018 Pharmacy Pharmacy [facility] [address] [facility] [place] [address] [phone] 09/24/2018 Nutrition Services Gastroenterology Melissa Omalley RDN [address] [place] [address] [place] [address] [phone] 09/24/2018 Office Visit Gastroenterology Lyssa Stout CRNP 132 [facility] [place] [address] [phone] 09/26/2018 Nurse Only Gastroenterology Nurse Anthony Fernandes 132 [facility] [place] [address] [phone] 12/19/2018 Office Visit Gynecology Obstetrics Irene Mujica CRNP 132 [facility] [place] [address] [phone] 06/18/2019 Office Visit Optometry aJrett Schmitt, OD [address] [place] [address] Pending Results Name Priority Associated Diagnoses Date/Ti me CHEMISTRY-OUTSIDE Routine 07/19/2018 Health Maintenance Due Date Last Done Comments [...] For more information, please contact: [place] [address]
--- OUTSIDE RECORDS SUMMARY | 2023-05-10 23:17 | External Medical Summary | Summary of Care ---
Author Name Unknown Organization [place] [address] Care Team Providers Care Writer Editor Name Role Phone RaulRajwinder Primary Care Provider Reason for Visit * Reason Comments Weight Management Medical Management Encounter Details Date Type Department Care Team Description 07/16/2018 Nutrition Services Nutrition & Weight Management, [facility] 132 [facility] [place] [address] Melissa Omalley RDN [address] [place] [address] [place] [address] Obesity, morbid (more than 100 lbs over ideal weight or BMI > 40) ([facility])*; Type 2 diabetes mellitus with hemoglobin [...] bedtime 30 Each 3 10/11/2017 Active nystatin 518310 UNIT/GM creamIndications:Can didal vulvovaginitis Apply topically to affected area 2 times a day. To affacted area for two weeks. 15 g 2 10/12/2017 Active Blood Glucose Monitoring Suppl (RaynforestIO) w/Device KITIndications:Type 2 diabetes mellitus with hemoglobin A1c goal of less than 7.0% (HCC) Use up to 4 times a day E11.9 1 Kit 0 10/17/2017 Active Glucose Blood (Bostan ResearchUCH VERIO) STRP Use up to four times [...] 7.0% ([facility]) Inject 1 syringeful once weekly [...] tabletIndications:Ce rebral palsy, unspecified type ([facility]) Take 1 Tab by mouth [...] pain 01/24/2012 01/17/2017 Genetic Sleep Disorder Research Other*[id number] 05/13/2011 04/07/2016 Obstructive sleep apnea 01/18/2011 12/27/19 [...] Vital Sign Reading Time Taken Blood Pressure 122/72 07/16/2018 11:07 AM EST Pulse 76 07/16/2018 11:07 AM EST Temperature - - Respiratory Rate - - Oxygen Saturation - - Inhaled Oxygen Concentration - - Weight 111.4 kg (245 lb 9.6 oz) 018 11:07 AM EST Height - - Body Mass Index 49.61 07/16/2018 11:07 AM EST in this encounter Patient Instructions * Patient Instructions* Melissa Omalley RDN - 07/16/2018 11:34 AM EST PATIENT GOALS: 1) Patient to continue a Low Fat Portion Controlled Diet. 2) Keep up the great job with decreasing soda intake. 3) Patient to do chair exercise as tolerated 2-3 times a week. 4) Continue the great job with checking blood sugars. 5) Take diuretic routinely as directed by MD. in this encounter Progress Notes * Melissa Omalley RDN - 07/16/2018 11:27 AM EST GI/NUTRITION CONSULT [facility] Patient was identified at visit by name and date. PATIENT: Shaina Shaw DATE: 07/16/18 NUTRITION ASSESSMENT Diagnosis Code for referral for [...] hypothyroidism [E03.9] SUBJECTIVE: Patient here today for nutrition counseling for weight management. Describes typical diet history/24 hr recall Breakfast: Egg [place] on whole grain bread Snacks: Sometimes not always Lunch: Salad Lettuce tomato onions peppers sprouts, mushrooms Snacks: None Dinner: Varies Vegetable Soup and Fruit Salad Snacks: Ice Cream Sometimes a couple cookies (Sometimes sugar Free) Drinks: Water, 2 % Milk, Diet Tea, Glucerna once in awhile when not so hungry. 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 Weight decreased 14.6 lbs since last visit 04/23/18 and 16.4 lb decrease since 02/21/18 262 lbs Nutrition Focused Edema Assessment: Bilateral Upper Extremity Edema: +1 Edema Bilateral Lower Extremity Edema: +1 Edema MNT: Calorie Controlled Diet, Consistent Carbohydrate Patient is interested in the following treatment options for obesity: medical management. BARRIERS TO LEARNING: None SPECIAL EDUCATION NEEDS: None LABS: Component Latest Ref Rng & Units 07/11/2018 GLUCOSE-OUTSIDE LAB 70 - 99 MG/DL 109 (A) PHYSICAL ACTIVITY:Light (Patient is wheel chair bound but is able to do exercises out of a chair and on her bed) SUPPLEMENTS: Vitamin C PRIOR NUTRITION COUNSELING: No prior counseling DAILY ENERGY/NUTRIENT NEEDS:[id number] KCALS for wt loss DIET RECALL INDICATES: Good meal distribution Consistent carbohydrate intake Adequate fruit and vegetable intake KNOWLEDGE ASSESSMENT: adequate knowledge NUTRITION DIAGNOSIS Food and nutrition related knowledge deficit in relation to calorie intake exceeding calorie expenditure as evidenced by diagnosis of Obesity. NUTRITION INTERVENTION PATIENT GOALS: 1) Patient to continue a Low Fat Portion Controlled Diet. 2) Keep up the great job with decreasing soda intake. 3) Patient to do chair exercise as tolerated 2-3 times a week. 4) Continue the great job with checking blood sugars. 5) Take diuretic routinely as directed by MD. RECOMMENDATIONS: Recommend evaluation of liver labs at next routine MD visit. Message sent to MD via [employer] regardng this. EXPECTED OUTCOMES: Demonstrated interest in learning. Expect compliance with diet recommendations. PLAN: Patient scheduled to return in one month; dietitian phone # given for future reference. 60 Minutes Initial visit Melissa Omalley RDN in this encounter Nursing Notes * Alirio Corcoran LPN - 07/16/2018 11:06 AM EST Pt verified identity by last name and date. Chief Complaint Patient presents with Weight Management Medical Management in this encounter Plan of Treatment Upcoming Encounters Date Type Specialty Care Team Description 08/07/2018 Office Visit Sleep Disorders Lanette Fields CRNP [address] [facility] [address] [phone] Kentrell, Nurse Sleep Disorders 132 [place] [address] [phone] 08/21/2018 Office Visit Family Medicine Rajwinder Carter DO [address] [place] [address] [phone] 08/23/2018 Office Visit Dermatology Rachel Hill MD [address] [place] [address], [place] [address] [phone] 09/21/2018 Pharmacy Pharmacy [facility] [address] [facility] [place] [id number] 09/24/2018 Nutrition Services Gastroenterology Melissa Omalley RDN [address] [facility] 230 [place] [id number] 09/24/2018 Office Visit Gastroenterology Lyssa Stout CRNP 132 [facility] [place] [address] [phone] 09/26/2018 Nurse Only Gastroenterology Nurse Anthony Fernandes 132 [facility] [place] [address] [phone] 12/19/2018 Office Visit Gynecology Obstetrics Irene Mujica CRNP 132 [facility] [place] [address] [phone] 06/18/2019 Office Visit Optometry Jarett Schmitt, OD [address] [place] [address] Health Maintenance Due Date Last [...] For more information, please contact: [place] [address]
--- OUTSIDE RECORDS SUMMARY | 2023-05-10 23:17 | External Medical Summary | Summary of Care ---
Author Name Unknown Organization [facility] [place] [address] Care Team Providers Care Glass Cut Off Supervisor Name Role Phone JohnbrianRajwinder thacker Primary Care Provider [phone] Encounter Details Date Type Department Care Team Description 08/09/2018 Scan Encounter Unspecified Department <No scans attached> [...] less than 7.0% ([facility]) Use with Lantus Solostar at bedtime 30 Each 3 10/11/2017 Active nystatin 909240 UNIT/GM creamIndications:Can didal vulvovaginitis Apply topically to affected area 2 times a day. To affacted area for two weeks. 15 g 2 10/12/2017 Active Blood Glucose Monitoring Suppl (powervaultTOUCH VERIO) w/Device KITIndications:Type 2 diabetes mellitus with [...] for edema 30 Tab 05/18/2018 Active fexofenadine (BERNRADA) 180 MG TabletIndications:Al lergic conjunctivitis of both [...] MG per tabletIndications:Ce rebral palsy, unspecified type ([facility]) Take 1 Tab by mouth [...] pain 01/24/2012 01/17/2017 Genetic Sleep Disorder Research Other*[id number] 05/13/2011 04/07/2016 Obstructive sleep apnea 01/18/2011 12/27/19 [...] Rajwinder Carter DO [address] [facility] [place] [id number] 08/23/2018 Office Visit Dermatology Rachel Hill MD [address] [place] [address] [phone] 09/21/2018 Pharmacy Pharmacy [facility] [address] [place] [facility] [place] [address] [phone] 09/24/2018 Nutrition Services Gastroenterology Melissa Omalley RDN [address] [facility] 230 [facility] [place] [address] [phone] 09/24/2018 Office Visit Gastroenterology Lyssa Stout CRNP 132 [facility] [place] [address] [phone] 09/26/2018 Nurse Only Gastroenterology Nurse Anthony Fernandes [address] [facility] [place] [address] [phone] 10/02/2018 Office Visit Sleep Disorders Lanette Fields CRNP [address] [place] [address] [phone] 12/19/2018 Office Visit Gynecology Obstetrics Irene Mujica CRNP [address] [place] [address] [phone] 06/18/2019 Office Visit Optometry Oskar Jarett Lam, OD 16 [facility] [place] [address] Health Maintenance [...] For more information, please contact: [place] [address]
--- OUTSIDE RECORDS SUMMARY | 2023-05-10 23:17 | External Medical Summary | Summary of Care ---
Author Name Unknown Organization [facility] Address [place] [address] Care Team Providers Care Flower Grower Name Role Phone Rajwinder Carter DO Primary Care Provider [phone] Reason for Visit * Reason Comments eRx-Medication Refill Encounter Details Date Type Department Care Team Description 08/10/[address] [address] Rajwinder Carter DO [facility] [place] [address] [phone] Spinal stenosis of lumbar region without neurogenic claudication; DDD (degenerative disc disease), lumbar; MEDICATION USE AGREEMENT Allergies Active Allergy Reactions Severity Noted Date [...] bedtime 30 Each 3 10/11/2017 Active nystatin 529870 UNIT/GM creamIndications:Can didal vulvovaginitis Apply topically to affected area 2 times a day. To affacted area for two weeks. 15 g 2 10/12/2017 Active Blood Glucose Monitoring Suppl ([employer] VERIO) w/Device KITIndications:Type 2 diabetes mellitus with hemoglobin A1c goal of less than 7.0% (HCC) Use up to 4 times a day E11.9 1 Kit 0 10/17/2017 Active Glucose Blood ([employer] SystemsTOUCH VERIO) STRP Use up to four times [...] reports only taking once dailly. 60 Tab 05/18/2018 Active MetFORMIN (GLUCOPHAGE) 1000 MG TabletIndications:Ty [...] pain 01/24/2012 01/17/2017 Genetic Sleep Disorder Research Other*[id number] 05/13/2011 04/07/2016 Obstructive sleep apnea 01/18/2011 12/27/19 [...] Miscellaneous Notes * Telephone Encounter - Sandra Schmitt LPN - 08/10/2018 12:24 PM EST Refused Prescriptions: Disp Refills Hydrocodone-Acetaminophen 10-325 MG per ta*60 Tab 0 Sig: TAKE 1TABLET TWICE DAILY NEEDED FOR PAIN Refused By: SANDRA SCHMITT for Refusal: Other (commentbelow)Reason for Refusal Comment: not needed at this time * Telephone Encounter - Sandra Schmitt LPN - 08/10/2018 12:22 PM EST Spoke with pt and yes she is still in placement. Pt stated Dr Carter was taking her off of this medication. Spoke to pharmacist and yes they requested prior to knowing pt was not at home. * Telephone Encounter - Rajwinder Carter DO - 08/10/2018 11:44 AM EST Pending Prescriptions: Disp Refills Hydrocodone-Acetaminophen 10-325 MG per t*60 Tab 0 Sig: TAKE 1 TABLET TWICE DAILY NEEDED FOR PAIN * Telephone Encounter - Rajwinder Carter, DO - 08/10/2018 11:44 AM EST Is pt still in placement? * Telephone Encounter - Sandra Schmitt LPN - 08/10/2018 8:45 AM EST Pending Prescriptions: Disp Refills Hydrocodone-Acetaminophen 10-325 MG per t*60 Tab 0 Sig: TAKE 1 TABLET TWICE DAILY NEEDED FOR PAIN * Telephone Encounter - Sandra Schmitt LPN - 08/10/2018 8:42 AM EST I have reviewed the patients controlled substance dispensing history in the Prescription Drug Monitoring Program in compliance with the [facility] regulations before prescribing a controlled substance. RX by Dr Ortiz on 07/22/2018 Hydrocodone-Acet 30 tabs Last RX filled from PCP 07/13/2018 Last Tox Screen Results: No results found. However, due to the size of the patient record, not all encounters were searched.Please check Results Review for a complete set of results. * Telephone Encounter - Janett Petit LPN - 08/10/2018 8:33 AM EST Pending Prescriptions: Disp Refills Hydrocodone-Acetaminophen 10-325 MG per t*60 Tab 0 Sig: TAKE 1 TABLET TWICE DAILY NEEDED FOR PAIN * Telephone Encounter - Janett Petit LPN - 08/10/2018 8:32 AM EST Pending Prescriptions: Disp Refills Hydrocodone-Acetaminophen 10-325 MG per t*60 Tab 0 Sig: TAKE 1 TABLET TWICE DAILY NEEDED FOR PAIN Last Office Visit: 07/13/2018 Next Office Visit: 08/21/2018 Scheduled Provider(s): Rajwinder Carter DO Last date the medication was ordered: 07/13/18 Patient Active Problem List Diagnosis Code Spinal [...] Chronic pain syndrome G89.4 MEDICATION USE AGREEMENT [id number] History of Clostridium difficile colitis Z86.19 Cirrhosis of liver ([facility]) K74.60 THAD on CPAP G47.33, Z99.89 Labs: CREATININE-OUTSIDE LAB(MG/DL) Lucio Dt/Tm Resulted Value Status 07/19/18 07/19/18 0.82 FINAL POTASSIUM-OUTSIDE LAB(MMOL/L) Lucio Dt/Tm Resulted Value Status 07/11/18 07/12/18 4.2 FINAL TSH(uIU/mL) Lucio Dt/Tm Resulted Value Status 03/28/18 4:20P 03/28/18 0.02* FINAL LDL (DIRECT MEASURE)(mg/dL) Lucio Dt/Tm Resulted [...] Medicine Rajwinder Carter DO [address] [place], [place] [id number] 08/23/2018 Office Visit Dermatology Rachel Hill MD [address] [place] [address], [place] [address] [phone] 09/21/2018 Pharmacy Pharmacy [facility] [address] [facility] [address] [phone] 09/24/2018 Nutrition Services Gastroenterology Melissa Omalley RDN [address] [place] [address] [place] [address] [phone] 09/24/2018 Office Visit Gastroenterology Lyssa Stout, ZAK [facility] [address] [phone] 09/26/2018 Nurse Only Gastroenterology Dom, Gastro [facility] [address] [phone] 10/02/2018 Office Visit Sleep Disorders [facility]ette Fields CRNP [facility] [address] [phone] 12/19/2018 Office Visit Gynecology Obstetrics Irene Mujica CRNP [facility] [place] [address] [phone] 06/18/2019 Office Visit Optometry Jarett Schmitt, OD [address] [place], [place] [id number] Health Maintenance Due Date Last Done Comments [...] fileas of this encounter Visit Diagnoses Diagnosis Spinal stenosis of lumbar region without neurogenic claudication Spinal stenosis, lumbar region, without neurogenic claudication DDD (degenerative disc disease), lumbar Degeneration of lumbar or lumbosacral intervertebral disc MEDICATION USE AGREEMENT in this encounter Advance Directives Patient has advance care planning documents on file. For more information, please contact: [place] [phone]
--- OUTSIDE RECORDS SUMMARY | 2023-05-10 23:17 | External Medical Summary | Summary of Care ---
Author Name Unknown Organization [facility] Address [place] [address] Care Team Providers Care Photo Editor Name Role Phone Rajwinder Carter DO Primary Care Provider Reason for Visit * Reason Comments Advice Encounter Details Date Type Department Care Team Description 07/19/2018 Telephone [place] [address] [place] [address] Rajwinder Carter DO [address] [place] [address] [phone] Advice Allergies Active Allergy Reactions Severity Noted [...] bedtime 30 Each 3 10/11/2017 Active nystatin 132358 UNIT/GM creamIndications:Can didal vulvovaginitis Apply topically to affected area 2 times a day. To affacted area for two weeks. 15 g 2 10/12/2017 Active Blood Glucose Monitoring Suppl ([employer] VERIO) w/Device KITIndications:Type 2 diabetes mellitus with hemoglobin A1c goal of less than 7.0% (HCC) Use up to 4 times a day E11.9 1 Kit 0 10/17/2017 Active Glucose Blood (H[employer]ingTOUCH VERIO) STRP Use up to four times [...] pain 01/24/2012 01/17/2017 Genetic Sleep Disorder Research Other*[id number] 05/13/2011 04/07/2016 Obstructive sleep apnea 01/18/2011 12/27/19 [...] Miscellaneous Notes * Telephone Encounter - Rajwinder Carter, - 07/20/2018 5:12 PM EST See other encounter. * Telephone Encounter - Susan Rosales RN - 07/19/2018 2:45 PM EST More anxiety right now * Telephone Encounter - Rajwinder Carter, - 07/19/2018 11:49 AM EST I am [...] the police there. Niece causing many problems per patient. Reports she can't put any pressure on right foot. Reports has a social wsork named Dulce Angulo from "[facility]" Patient reports she is willing to go to a hospital if it means she can get more rehab help . Specifically asking for admission to [facility]. Reports has been having anxiety attacks more frequent lately. Asking for your help in this matter. * Telephone Encounter - Marcelle Rosales, THAD - 07/19/2018 8:36 AM EST Reason for patient's call: wants to speak with nurse regarding weak legs Caller was transferred to [facility] at the dedicated phone nurse line. in this encounter Plan of Treatment Upcoming Encounters Date Type Specialty Care Team Description 08/07/2018 Office Visit Sleep Disorders Lanette Fields CRNP [address] [facility] [place] [address] [phone] Gw, Nurse Sleep Disorders 132 [facility] [place] [address] [phone] 08/21/2018 Office Visit Family Medicine Rajwinder Carter DO [address] [place] [address] [phone] 08/23/2018 Office Visit Dermatology Rachel Hill MD [address] [place] [address] [phone] 09/21/2018 Pharmacy Pharmacy [facility] [address] [facility] [address] [phone] 09/24/2018 Nutrition Services Gastroenterology Melissa Omalley RDN [address] [place] [address] [phone] 09/24/2018 Office Visit Gastroenterology Lyssa Stout CRNP 132 [facility] [place] [address] [phone] 09/26/2018 Nurse Only Gastroenterology Nurse Anthony Fernandes 132 [facility] [place] [address] [phone] 12/19/2018 Office Visit Gynecology Obstetrics Irene Mujica CRNP 132 [facility] [place] [address] [phone] 06/18/2019 Office Visit Optometry Jarett Schmitt, OD [address] [place] [address] [phone] Health Maintenance Due Date Last Done Comments [...] For more information, please contact: [place] [address]
--- OUTSIDE RECORDS SUMMARY | 2023-05-10 23:18 | External Medical Summary | Summary of Care ---
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 Disp. Refills Start Date End Date Status NEBULIZER DEVIIndications:Sleep apnea,Other dyspnea and respiratory abnormality,Other specified infantile cerebral palsy as directed 1 0 03/24/2008 Active ASPIRIN 81 MG PO TABS one tab by mouth daily 34 Tab 5 05/25/2012 Active CENTRUM SILVER PO TABS 1 tab daily 1 Tab 0 05/25/2012 Active albuterol-ipratropium (DUONEB) 2.5-0.5 MG/3ML nebulizer solutionIndications:A sthma exacerbation Use 1 vial in nebulizer 180 mL 0 10/09/2017 Active fluticasone (FLONASE) 50 MCG/ACT nasal sprayIndications:Sinu s congestion Administer 2 Sprays into each nostril daily. 1 Inhaler 5 10/11/2017 Active Insulin Pen Needle 31G X 6 MM MISCIndications:Type 2 diabetes mellitus with hemoglobin A1c goal of less than 7.0% ([facility]) Use with Lantus Solostar at bedtime 30 Each 3 10/11/2017 Active nystatin 474960 UNIT/GM creamIndications:Cand idal vulvovaginitis Apply topically to affected area 2 times a day. To affacted area for two weeks. 15 g 2 10/12/2017 Active Blood Glucose Monitoring Suppl ([employer]OU[employer] VERIO) w/Device KITIndications:Type 2 diabetes mellitus with hemoglobin A1c goal of less than 7.0% (HCC) Use up to 4 times a day E11.9 1 Kit 0 10/17/2017 Active Glucose Blood (ONETOUCH VERIO) STRP Use up to four times a day as directed.DX:E11. 9 400 Strip 3 12/04/2017 Active vitamin c (ASCORBIC ACID) 500 MG Tablet Take 500 mg by mouth daily. Active BD PEN NEEDLE MINI U/F 31G X 5 MMIndications:Type 2 diabetes mellitus with hemoglobin A1c goal of less than 7.0% (HCC) Use with Basaglar at bedtime. 30 Each 11 03/12/2018 Active escitalopram (LEXAPRO) 20 MG Tablet Take 1 Tab by mouth daily. 30 Tab 05/18/2018 Active levothyroxine (LEVOXYL) 150 MCG TabletIndications:Acq uired hypothyroidism Take 1 Tab by mouth daily. (at least 30 min prior to breakfast or other meds) 30 Tab 11 05/18/2018 Active traZODone (DESYREL) 50 MG TabletIndications:Sle ep disturbances Take 1 Tab by mouth at bedtime. 30 Tab 05/18/2018 Active potassium chloride ER 10 MEQ TBCRIndications:Hypok alemia With food. Pt reports only taking once dailly. 60 Tab 5 05/18/2018 Active MetFORMIN (GLUCOPHAGE) 1000 MG TabletIndications:Typ e 2 diabetes mellitus with hemoglobin A1c goal of less than 7.0% (HCC) Take 1 Tab by mouth 2 times a day. With food. 60 Tab 5 05/18/2018 Active omeprazole (PRILOSEC) 20 MG CPDR Take 1 Cap by mouth daily. 30 Cap 05/18/2018 Active atorvaSTATin (LIPITOR) 40 MG TabletIndications:Dys lipidemia, goal LDL below 70 Take 1 Tab by mouth at bedtime. 30 Tab 05/18/2018 Active furosemide (LASIX) 20 MG TabletIndications:Loc alized edema,Venous stasis dermatitis of both lower extremities One pill by mouth once a day, as needed for edema 30 Tab 05/18/2018 Active fexofenadine (BERNARDA) 180 MG TabletIndications:All ergic conjunctivitis of both eyes,Allergic rhinitis due to [...] 7.0% ([facility]) Inject 1 syringeful once weekly 4 Pre-filled Pen Syringe Dosing Unit 5 05/18/2018 Active insulin glargine (LANTUS SOLOSTAR) 100 UNIT/ML SOPNIndications:Type 2 diabetes mellitus with hemoglobin A1c goal of less than 7.0% ([facility]) Inject 24 units at bed time 5 Pre-filled Pen Syringe Dosing Unit 3 05/18/2018 Active oxybutynin (DITROPAN) 5 MG Tablet Take 1 Tab by mouth 2 times a day. Through urology 60 Tab 5 05/29/2018 Active Hydrocodone-Acetamino phen 10-325 MG per tabletIndications:Spi nal stenosis of lumbar region without neurogenic claudication,DDD (degenerative disc disease), lumbar,MEDICATION USE AGREEMENT TAKE 1 TABLET TWICE DAILY NEEDED FOR PAIN 60 Tab 0 06/15/2018 Active cyclobenzaprine (FLEXERIL) 10 MG Tablet TAKE 1 TABLET BY MOUTH AT BEDTIME 30 Tab 0 07/06/2018 Active as of this encounter Active Problems Problem Noted Date THAD on CPAP 12/26/2017 Cirrhosis of liver (HCC) 11/20/2017 History of Clostridium difficile colitis 08/29/2017 Chronic pain syndrome 01/17/2017 MEDICATION USE AGREEMENT 01/17/2017 Overview: 01/17/17 Acquired hypothyroidism 12/12/2016 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 1 10/09/2015 Obesity, morbid (more than 100 lbs over ideal weight or BMI > 40) ([facility]) 02/09/2015 Restrictive lung disease 12/10/2014 Type 2 diabetes mellitus with hemoglobin A1c goal of less than 7.0% ([facility]) 09/26/2013 Overview: ICD-10 update of inactive term Vitamin D deficiency 09/26/2013 Lymphedema 03/11/2013 Intermittent asthma with reliever use up to twice per week 01/09/2013 Stasis dermatitis 05/07/2012 NG (nonalcoholic steatohepatitis) 04/12 HTN, goal below 140/90 03/27/2012 Chronic rhinitis 03/27/2012 Cerebral palsy (HCC) 01/24/2012 Spinal stenosis of lumbar region without [...] (BMI) of 50.0 to 59.9 in adult ( [facility]) 06/12/2017 12/19/2017 Overview: Per Obesity protocol #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 7 02/13/2018 Atypical chest pain 08/19/2016 01/17/2017 Depression with anxiety 08/19/2016 02/14/20 18 Hepatic cirrhosis (HCC) 08/19/2016 03/28/20 17 Polyuria 08/09/2016 01/17/2017 Urinary frequency 08/09/2016 01/17/2017 Generalized OA 06/14/2016 03/28/2017 Body mass index (BMI) of 45.0-49.9 in adult ([facility] ) 12/09/2015 01/17/2017 Overview: bmi= 48.04 12/09/15 Need for shingles vaccine 12/09/20152015 Bilateral shoulder pain 08/25/2015 06/07/20 16 Bilateral shoulder pain 07/16/2015 06/07/20 16 Cerebral palsy (HCC) 04/23/2015 03/28/2017 Candidal vulvovaginitis 02/12/2015 06/07/20 16 [...] > 40) ([facility]) 10/28/2013 01/17/2017 Overview: bmi= 53.93 10/28/13 Sleep [...] > 40) ([facility]) 05/25/2012 01/17/2017 Overview: BMI= 55.27 05/25/12 Impacted [...] chronic, stage III (GFR 30-59 ml /min) ([facility]) 01/24/2012 03/27/2012 Chronic pain 01/24/2012 01/17/2017 Genetic Sleep Disorder Research Other*[id number] 05/13/2011 04/07/2016 Obstructive sleep apnea 01/18/2011 12/27/19 [...] > 40) ([facility]) 12/08/2009 07/02/2014 Overview: Per Obesity Taxonomy ICD-10 [...] Assigned at Date Recorded Not on file as of this encounter Plan of Treatment Upcoming Encounters Date Type Specialty Care Team Description 07/13/2018 Office Visit Family Medicine Rajwinder Carter DO [address] [place] [address] [phone] 07/16/2018 Nutrition Services Gastroenterology Melissa Omalley RDN [address] [place] [address] [phone] 07/16/2018 Office Visit Gastroenterology Lyssa Stout CRNP [address] [place] [address] [phone] 08/07/2018 Office Visit Sleep Disorders Lanette Fields CRNP [address] [place] [address] [phone] [place] Nurse Sleep Disorders [address] [place] [address] 08/21/2018 Office Visit Family Rajwinder Lopez DO [address] [place] [address] [phone] 08/23/2018 Office Visit Dermatology Rachel Hill MD [address] [place] [address], [place] [address] [phone] 09/21/2018 [facility] [address] [facility] [address] [phone] 09/26/2018 Nurse Only Gastroenterology Dom, Gastro Chau 132 [facility] [place] [address] [phone] 12/19/2018 Office Visit Gynecology Obstetrics Irene Mujica CRNP [address] [facility] [place] [address] [phone] 06/18/2019 Office Visit Optometry Jarett Schmitt, OD [address] [place] [address] Health Maintenance Due Date Last [...]
--- OUTSIDE RECORDS SUMMARY | 2023-05-10 23:18 | External Medical Summary | Summary of Care ---
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 To affacted area for two weeks. 15 g 2 10/12/2017 Active Blood Glucose Monitoring Suppl (PIQUR TherapeuticsTOPyramid Screening Technology VERIO) w/Device KITIndications:Type 2 diabetes mellitus with hemoglobin A1c goal of less than 7.0% (HCC) Use up to 4 times a day E11.9 1 Kit 0 10/17/2017 Active Glucose Blood (PIQUR TherapeuticsTOUCH VERIO) STRP Use up to four [...] 5 05/18/2018 Active levothyroxine (LEVOXYL) 150 MCG TabletIndications:Acq [...] 5 05/18/2018 Active furosemide (LASIX) 20 MG TabletIndications:Loc alized edema,Venous stasis dermatitis of both lower extremities One pill by mouth once a day, as needed for edema 30 Tab 5 05/18/2018 Active fexofenadine (BERNARDA) 180 MG TabletIndications:All [...] > 40) ([facility]) 02/09/2015 Restrictive lung disease 12/10/2014 Type 2 diabetes mellitus with hemoglobin A1c goal of less than 7.0% ([facility]) 09/26/2013 Overview: ICD-10 update of inactive term Vitamin D deficiency 09/26/2013 Lymphedema 03/11/2013 Intermittent asthma with reliever use up to twice per week 01/09/2013 Stasis dermatitis 05/07/2012 NG (nonalcoholic steatohepatitis) 04/12 HTN, goal below 140/90 03/27/2012 Chronic rhinitis 03/27/2012 Cerebral palsy ([facility]) 01/24/2012 Spinal stenosis of lumbar region without [...] to 59.9 in adult ( [facility]) 06/12/2017 12/19/2017 Overview: Per Obesity protocol #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 7 02/13/2018 Atypical chest pain 08/19/2016 01/17/2017 Depression with anxiety 08/19/2016 02/14/20 18 Hepatic cirrhosis ([facility]) 08/19/2016 03/28/20 17 Polyuria 08/09/2016 01/17/2017 Urinary frequency 08/09/2016 01/17/2017 Generalized OA 06/14/2016 03/28/2017 Body mass index (BMI) of 45.0-49.9 in adult ([facility] ) 12/09/2015 01/17/2017 Overview: bmi= 48.04 12/09/15 Need for shingles vaccine 12/09/20152015 Bilateral shoulder pain 08/25/2015 06/07/20 16 Bilateral shoulder pain 07/16/2015 06/07/20 16 Cerebral palsy ([facility]) 04/23/2015 03/28/2017 Candidal vulvovaginitis 02/12/2015 06/07/20 16 [...] > 40) ([facility]) 10/28/2013 01/17/2017 Overview: bmi= 53.93 [...] > 40) ([facility]) 05/25/2012 01/17/2017 Overview: BMI= 55.27 [...] III (GFR 30-59 ml /min) ([facility]) 01/24/2012 03/27/2012 Chronic pain 01/24/2012 01/17/2017 Genetic Sleep Disorder Research Other*[id number] 05/13/2011 04/07/2016 Obstructive sleep apnea 01/18/2011 12/27/19 [...] > 40) ([facility]) 12/08/2009 07/02/2014 Overview: Per Obesity [...] Not on file as of this encounter Miscellaneous Notes * Telephone Encounter - Shelly Hirsch LPN - 07/11/2018 8:56 AM EDT Patient is calling. Having an awful lot going on at home. Having stress pain from right to left in her chest. Her husbands niece has stolen her hydrocodone. Thinks she twisted her ankle. It was pretty swollen. It has gone down. She tried twice to get into her car. She was stepping up, has to use a stool to get into her vehicle. Landed on her ankle twice. She is having chest pain. Last night it was a 10 and she had a headache. Headache is gone now. Today it is a 9. No shortness of breath. No radiation. Having right sided pain. Said she has a kidney stone. Has had this the last 3 days. Placed today with Torrie Slaughter at 10:30 a.m. * Telephone Encounter - Abbie Martinez OSA - 07/11/2018 8:54 AM EDT Reason for patient's call: pains across chest and increased anxiety Caller was transferred to Shelly at the dedicated phone nurse line. in this encounter Plan of Treatment Upcoming Encounters Date Type Specialty Care Team Description 07/11/2018 Office Visit Family Medicine Confer, Torrie Miller [facility]-C [address] [facility] [address] [phone] 07/16/2018 Nutrition Services Gastroenterology Melissa Omalley, RDN [address] [place] [id number] 07/16/2018 Office Visit [facility]ology [facility] [address] [phone] 08/07/2018 Office Visit Sleep Disorders Lanette Fields CRNP [address] [place] [address] [phone] [place], Nurse Sleep Disorders [address] [place] [address] [phone] 08/21/2018 Office Visit Family Medicine Rajwinder Carter, DO [address] [place] [address] [phone] 08/23/2018 Office Visit Dermatology Rachel Hill MD [address] [place] [address] [phone] 09/21/2018 Pharmacy Pharmacy [facility] [address] [place] [address] [phone] 09/26/2018 Nurse Only Gastroenterology Nurse Anthony Fernandes [address] [place] [address] [phone] 12/19/2018 Office Visit Gynecology Obstetrics [facility]ujica CR[facility] [address] [facility] [address] [phone] 06/18/2019 Office Visit Optometry Jarett Schmitt, OD [address] [place] [address] Health Maintenance Due Date Last [...]
--- OUTSIDE RECORDS SUMMARY | 2023-05-10 23:18 | External Medical Summary | Summary of Care ---
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 To affacted area for two weeks. 15 g 2 10/12/2017 Active Blood Glucose Monitoring Suppl ([employer] VERIO) w/Device KITIndications:Type 2 diabetes mellitus with hemoglobin A1c goal of less than 7.0% (HCC) Use up to 4 times a day E11.9 1 Kit 0 10/17/2017 Active Glucose Blood (ICVRxTOUCH VERIO) STRP Use up to four times [...] 5 05/18/2018 Active atorvaSTATin (LIPITOR) 40 MG TabletIndications:Dys [...] 7.0% ([facility]) Inject 24 units at bed time [...] > 40) ([facility]) 02/09/2015 Restrictive lung disease 12/10/2014 Type 2 diabetes mellitus with hemoglobin A1c goal of less than 7.0% ([facility]) 09/26/2013 Overview: ICD-10 update of inactive term Vitamin D deficiency 09/26/2013 Lymphedema 03/11/2013 Intermittent asthma with reliever use up to twice per week 01/09/2013 Stasis dermatitis 05/07/2012 NG (nonalcoholic steatohepatitis) 04/12 HTN, goal below 140/90 03/27/2012 Chronic rhinitis 03/27/2012 Cerebral palsy ([facility]) 01/24/2012 Spinal stenosis of lumbar region without [...] of 50.0 to 59.9 in adult ( 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) 08/19/2016 03/28/20 17 Polyuria 08/09/2016 01/17/2017 Urinary frequency 08/09/2016 01/17/2017 Generalized OA 06/14/2016 03/28/2017 Body mass index (BMI) of 45.0-49.9 in adult ([facility] ) 12/09/2015 01/17/2017 Overview: bmi= 48.04 12/09/15 Need for shingles vaccine 12/09/20152015 Bilateral shoulder pain 08/25/2015 06/07/20 16 Bilateral shoulder pain 07/16/2015 06/07/20 16 Cerebral palsy ([facility]) 04/23/2015 03/28/2017 Candidal vulvovaginitis 02/12/2015 06/07/20 16 [...] > 40) ([facility]) 10/28/2013 01/17/2017 Overview: bmi= 53.93 10/28/13 Sleep [...] > 40) ([facility]) 05/25/2012 01/17/2017 Overview: BMI= 55.27 05/25/12 Impacted [...] chronic, stage III (GFR 30-59 ml /min) ([facility]) 01/24/2012 03/27/2012 Chronic pain 01/24/2012 01/17/2017 Genetic Sleep Disorder Research Other*[id number] 05/13/2011 04/07/2016 Obstructive sleep apnea 01/18/2011 12/27/19 [...] > 40) ([facility]) 12/08/2009 07/02/2014 Overview: Per Obesity Taxonomy ICD-10 [...] Not on file as of this encounter Last Filed Vital Signs Vital Sign Reading Time Taken Blood Pressure 114/72 07/11/2018 10:38 AM EDT Pulse 80 07/11/2018 10:38 AM EDT Temperature 36.8 C (98.2 F) 07/11/2018 1 0:38 AM EDT Respiratory Rate 18 07/11/2018 10:3 8 AM EDT Oxygen Saturation - - Inhaled Oxygen Concentration - - Weight 110.8 kg (244 lb 4.8 oz) 018 10:38 AM EDT Height - - Body Mass Index 49.34 07/11/2018 10:38 AM EDT in this encounter Progress Notes * Torrie Slaughter PA-C - 07/11/2018 11:24 AM EDT Formatting of this note may be different from the original. HPI: Shaina Bustos is a 63 year old female with a past medical history significant for type 2 diabetes mellitus, hyperlipidemia, hypertension, cirrhosis, morbid obesity, cerebral palsy, lymphedema, anxiety, who presents to clinic today to discuss some chest pain that has been going on since last even ing. Notes that it is somewhat right-sided to substernal. Is crushing or squeezing in nature. Does have some discomfort with taking in a deep breath. She denies any lightheadedness, dizziness, syncope, nausea, vomiting, diaphoresis, jaw pain, arm pain. No new peripheral edema. States that she is under an enormous amount of stress at home. Having worsening anxiety. She states that she lives at home with her , her 's sister,her niece, her great niece. Notes that her niece is stealing her pain medication and is substituting this with the niece is medication, swapping out the patient's 10 mg hydrocodone for her own 5 mg hy drocodone. She notes that she is trying to move out of the apartment. She has not filed any police reports, but is letting her home health agency do this for her. She is worried that everybody will be angry with her if she filed a police report. She thinks that some of her chest pain is related to her worsening anxiety, but is unsure. ROS: See HPI for positives and negatives. Patient denies additional complaints. PAST MEDICAL HISTORY: Patient Active Problem List Diagnosis Code Spinal stenosis of lumbar region without neurogenic claudication M48.061 Cerebral palsy ([facility]) G80.9 HTN, goal below 140/90 I10 Chronic rhinitis J31.0 NG (nonalcoholic steatohepatitis) K75.81 Stasis dermatitis I87.2 DDD (degenerative disc disease), lumbar M51.36 Intermittent asthma with reliever use up to twice per week J45.20 Lymphedema I89.0 Type 2 diabetes mellitus with hemoglobin A1c goal of less than 7.0% ([facility]) E11.9 Vitamin D deficiency E55.9 Restrictive lung disease J98.4 Obesity, morbid (more than 100 lbs over ideal weight or BMI > 40) ([facility]) E66.01 Dyslipidemia, goal LDL below 70 E78.5 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 R39.81 Acquired hypothyroidism E03.9 Chronic pain syndrome G89.4 MEDICATION USE AGREEMENT [id number] History of Clostridium difficile colitis Z86.19 Cirrhosis of liver ([facility]) K74.60 THAD on CPAP G47.33, Z99.89 Past Surgical History: Procedure Laterality Date DELIVERY [...] Allergen Reactions Pcn [Penicillins] Rash Current Outpatient Prescriptions Medication Sig Dispense Refill cyclobenzaprine (FLEXERIL) 10 MG Tablet TAKE 1 TABLET BY MOUTH AT BEDTIME 30 Tab 0 Hydrocodone-Acetaminophen 10-325 MG per tablet TAKE 1 TABLET TWICE DAILY NEEDED FOR PAIN 60 Tab 0 oxybutynin (DITROPAN) 5 MG Tablet [...] 500 mg by mouth daily. Glucose Blood (SpryUCH VERFunbuilt) STRP Use up to four times a day as directed.DX:E11.9 400 Strip 3 Blood Glucose Monitoring Suppl ([employer]K [employer]) w/Device KIT Use up to 4 times a day E11.9 1 Kit 0 nystatin 744562 UNIT/GM cream Apply topically to affected area [...] 0 NEBULIZER KORTNEY as directed 1 0 Nursing Notes: Shannan Bojorquez LPN 07/11/18 1051 Signed Anxiety, mid chest pain. EXAM: BP 114/72 | Pulse 80 | Temp (Src) 98.2 (Tympanic) | Resp 18 | Wt 244 lbs 4.8 oz (110.814kg) | BMI 49.34 kg/m | BSA 2.15 m GENERAL: alert, no distress, nontoxic HEAD: Normocephalic, atraumatic EYES: PERRL, EOMI, Conjunctiva are pink and non-injected, sclera clear EARS: External ears normal, Canals clear, TM's [...] deficits, gait normal, reflexes normal and symmetric EXTREMITIES: 1+ pitting edema to the knees bilaterally. ASSESSMENT/PLAN R07.9 Acute chest pain (primary encounter diagnosis) Plan: Ekg Ekg F41.9 Anxiety EKG in clinic today is not significantly different from previous EKG. Given her risk factors, location of the pain, slightly pleuritic pain, I would like to refer her to the ER for cardiac rule out. I suspect that if the cardiac rule out is negative, she could be experiencing anxiety attacks. I have asked her to return to clinic for emergency department discharge follow-up to discuss her medication agreement, worsening anxiety, social situation. I offered her counseling today which she declined. I am hesitant to prescribe her any controlled substances in the future given her current social situation. Follow-up on ED discharge There are no Patient Instructions on file for this visit. Torrie Slaughter PA-C [address] [address] This chart was completed in part utilizing [employer] Speech Voice Recognition Software. Grammatical errors, random word insertions, prounoun errors, and incomplete sentences are an occasional consequence of this system due to software limitations, ambient noise, and hardware issues. Any formal questions or concerns about the content, text, or information contained within the body of this dictation should be directly addressed to the provider for clarification. in this encounter Nursing Notes * Jovana Lambert RN - 07/11/2018 12:22 PM EDT OV notes faxed to ED * Shannan Bojorquez LPN - 07/11/2018 10:38 AM EDT Anxiety, mid chest pain. in this encounter Plan of Treatment Upcoming Encounters Date Type Specialty Care Team Description 07/16/2018 Nutrition Services Gastroenterology Melissa Omalley RDN [address] [facility] [address] [place] [address] 07/16/2018 Office Visit Gastroenterology Lyssa Stout CRNP 132 [facility] [place] [address] 08/07/2018 Office Visit Sleep Disorders Lanette Fields CRNP [address] [place] [address] [phone] [place] Nurse Sleep Disorders [address] [place] [address] [phone] 08/21/2018 [facility] [address] [place] [facility] [place] [address] [phone] 08/23/2018 Office Visit Dermatology Rachel Hill MD [address] [place] [address], [place] [address] [phone] 09/21/[address] [facility] [address] [place] [address] [phone] 09/26/2018 Nurse Only Gastroenterology Nurse Dom Gastro Chau [address] [place] [address] [phone] 12/19/2018 Office Visit Gynecology Obstetrics Irene Mujica CRNP [address] [facility] [place] [address] [phone] 06/18/2019 Office Visit Optometry Jarett Schmitt, OD [address] [place], [place] [id number] Scheduled Tests Name Priority Associated Diagnoses Order S chedule EKG Routine Acute chest pain Expected: 07/11/2018 (Approximate), Expi res: 08/10/2019 Health Maintenance Due Date Last Done Comments [...] fileas of this encounter Visit Diagnoses Diagnosis Acute chest pain - Primary Chest pain, unspecified Anxiety Anxiety state, unspecified in this encounter"
--- OUTSIDE RECORDS SUMMARY | 2023-05-10 23:18 | External Medical Summary | Summary of Care ---
Author Name Unknown Organization [facility] [place] [address] Phone Care Team Providers Care Echocardiography Tech Name Role Phone ArabellaRajwinder thacker Belen MORENO Primary Care Provider [phone] Reason for Visit * Reason Comments ANXIETY Encounter Details Date Type Department Care Team Description 07/11/2018 Office Visit [facility] [address] [place] [address] Torrie Slaughter PA-C [address] [place] [address] [phone] Acute chest pain*;Anxiety Allergies Active Allergy Reactions [...] bedtime 30 Each 3 10/11/2017 Active nystatin 810908 UNIT/GM creamIndications:Cand idal vulvovaginitis Apply topically to affected area 2 times a day. To affacted area for two weeks. 15 g 2 10/12/2017 Active Blood Glucose Monitoring Suppl ([employer] VERIO) w/Device KITIndications:Type 2 diabetes mellitus with hemoglobin A1c goal of less than 7.0% (HCC) Use up to 4 times a day E11.9 1 Kit 0 10/17/2017 Active Glucose Blood (AskemTOUCH VERIO) STRP Use up to four times [...] 7.0% ([facility]) Inject 1 syringeful once weekly 4 Pre-filled Pen Syringe Dosing Unit 5 05/18/2018 Active insulin glargine (LANTUS SOLOSTAR) 100 UNIT/ML SOPNIndications:Type 2 diabetes mellitus with hemoglobin A1c goal of less than 7.0% ([facility]) Inject 24 units at bed [...] weight or BMI > 40) ([facility]) 02/09/2015 Restrictive lung disease 12/10/2014 Type 2 diabetes mellitus with hemoglobin A1c goal of less than 7.0% ([facility]) 09/26/2013 Overview: ICD-10 update of inactive term Vitamin D deficiency 09/26/2013 Lymphedema 03/11/2013 Intermittent asthma with reliever use up to twice per week 01/09/2013 Stasis dermatitis 05/07/2012 NG (nonalcoholic steatohepatitis) 04/12 HTN, goal below 140/90 03/27/2012 Chronic rhinitis 03/27/2012 Cerebral palsy ([facility]) 01/24/2012 Spinal stenosis of lumbar [...] to 59.9 in adult ( [facility]) 06/12/2017 12/19/2017 Overview: Per Obesity protocol #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 7 02/13/2018 Atypical chest pain 08/19/2016 01/17/2017 Depression with anxiety 08/19/2016 02/14/20 18 Hepatic cirrhosis ([facility]) 08/19/2016 03/28/20 17 Polyuria 08/09/2016 01/17/2017 Urinary frequency 08/09/2016 01/17/2017 Generalized OA 06/14/2016 03/28/2017 Body mass index (BMI) of 45.0-49.9 in adult ([facility] ) 12/09/2015 01/17/2017 Overview: bmi= 48.04 12/09/15 Need for shingles vaccine 12/09/20152015 Bilateral shoulder pain 08/25/2015 06/07/20 16 Bilateral shoulder pain 07/16/2015 06/07/20 16 Cerebral palsy ([facility]) 04/23/2015 03/28/2017 Candidal vulvovaginitis 02/12/2015 [...] weight or BMI > 40) ([facility]) 10/28/2013 01/17/2017 Overview: bmi= 53.93 [...] weight or BMI > 40) ([facility]) 05/25/2012 01/17/2017 Overview: BMI= 55.27 [...] III (GFR 30-59 ml /min) ([facility]) 01/24/2012 03/27/2012 Chronic pain 01/24/2012 01/17/2017 Genetic Sleep Disorder Research Other*[id number] 05/13/2011 04/07/2016 Obstructive sleep apnea 01/18/2011 12/27/19 [...] weight or BMI > 40) ([facility]) 12/08/2009 07/02/2014 Overview: Per Obesity [...] neurogenic claudication M48.061 Cerebral palsy ([facility]) G80.9 HTN, goal below 140/90 I10 Chronic rhinitis J31.0 NG (nonalcoholic steatohepatitis) K75.81 Stasis dermatitis I87.2 DDD (degenerative disc disease), lumbar M51.36 Intermittent asthma with reliever use up to twice per week J45.20 Lymphedema I89.0 Type 2 diabetes mellitus with hemoglobin A1c goal of less than 7.0% ([facility]) E11.9 Vitamin D deficiency E55.9 Restrictive lung disease J98.4 Obesity, morbid (more than 100 lbs over ideal weight or BMI > 40) ([facility]) E66.01 Dyslipidemia, goal LDL below 70 E78.5 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 R39.81 Acquired hypothyroidism E03.9 Chronic pain syndrome G89.4 MEDICATION USE AGREEMENT [id number] History of Clostridium difficile colitis Z86.19 Cirrhosis of liver ([facility]) K74.60 THAD on CPAP G47.33, Z99.89 Past Surgical History: Procedure Laterality Date DELIVERY 04/20/1982 COLONOSCOPY 04/21/09 repeat in 10 years COLONOSCOPY, DIAGNOSTIC (RECTUM) 10/04/2016 normal bx, repeat 10 yrs/[facility]EDURE NEC wisdom teeth x 4 DILATION AND CURETTAGE (D&C) EGD, FLEXIBLE, DIAGNOSTIC 10/04/2016 gastritis/[facility] EGD, FLEXIBLE, DIAGNOSTIC 01/11/2018 eso varices, retained food, repeat 1 yr/[facility] PELVIS/HIP JOINT SURGERY NEC teenager aid in [...] 500 mg by mouth daily. Glucose Blood (FieldglassUCH VEREmiSense Technologies) STRP Use up to four times a day as directed.DX:E11.9 400 Strip 3 Blood Glucose Monitoring Suppl ([employer]) w/Device KIT Use up to 4 times a day E11.9 1 Kit 0 nystatin 877291 UNIT/GM cream Apply topically to affected area [...] file for this visit. Torrie Slaughter PA-C [address] [address] This chart was completed in part utilizing [email or web address] Speech Voice Recognition Software. Grammatical errors, random [...] Nutrition Services Gastroenterology Melissa Omalley RDN [address] [address] [place] [address] 07/16/2018 Office Visit Gastroenterology Lyssa Stout CRNP [address] [facility] [place] [address] 08/07/2018 Office Visit Sleep Disorders Lanette Fields CRNP [address] [place] [address] [phone] [place] Nurse Sleep Disorders [address] [place] [address] [phone] 08/21/2018 [facility] [address] [place] [facility] [place] [address] [phone] 08/23/2018 Office Visit Dermatology Rachel Hill MD [address] [place] [address], [place] [address] [phone] 09/21/2018 Pharmacy Pharmacy [facility] [address] [place] [address] [phone] 09/26/2018 Nurse Only Gastroenterology Nurse Dom Gastro Chau [address] [place] [address] [phone] 12/19/2018 Office Visit Gynecology Obstetrics Irene Mujica CRNP [address] [facility] [place] [address] [phone] 06/18/2019 Office Visit Optometry Jarett Schmitt, OD [address] [place], [place] [id number] Scheduled Tests Name Priority Associated Diagnoses Order [...]
--- OUTSIDE RECORDS SUMMARY | 2023-05-10 23:18 | External Medical Summary | Summary of Care ---
Author Name Unknown Organization [place] [address] Phone Care Team Providers Care Internal Consultant Name Role Phone Rajwinder Carter Primary Care Provider [phone] Reason for Visit * Reason Comments eRx-Medication Refill Encounter Details Date Type Department Care Team Description 07/05/[address] [facility] [address] [place] [address] Carter Chan MD [address] [place] [address] [phone] Allergies Active Allergy Reactions Severity Noted Date [...] tab daily 1 Tab 0 05/25/2012 Active albuterol-ipratropi um (DUONEB) 2.5-0.5 MG/3ML nebulizer solutionIndications :Asthma exacerbation Use 1 vial in nebulizer 180 mL 0 10/09/2017 Active fluticasone (FLONASE) 50 MCG/ACT nasal sprayIndications:Si nus congestion Administer 2 Sprays into each nostril daily. 1 Inhaler 5 10/11/2017 Active Insulin Pen Needle 31G X 6 MM MISCIndications:Typ e 2 diabetes mellitus with hemoglobin A1c goal of less than 7.0% (HCC) Use with Lantus Solostar at bedtime 30 Each 3 10/11/2017 Active nystatin 508551 UNIT/GM creamIndications:Ca ndidal vulvovaginitis Apply topically to affected area 2 times a day. To affacted area for two weeks. 15 g 2 10/12/2017 Active Blood Glucose Monitoring Suppl ([employer] VERIO) w/Device KITIndications:Type 2 diabetes mellitus with hemoglobin A1c goal of less than 7.0% (HCC) Use up to 4 times a day E11.9 1 Kit 0 10/17/2017 Active Glucose Blood (Se[employer]OUCH VERIO) STRP Use up to four times a day as directed.DX:E11 .9 400 Strip 3 12/04/2017 Active vitamin c [...] 5 05/18/2018 Active levothyroxine (LEVOXYL) 150 MCG TabletIndications:A cquired hypothyroidism Take 1 Tab by mouth daily. (at least 30 min prior to breakfast or other meds) 30 Tab 11 05/18/2018 Active traZODone (DESYREL) 50 MG TabletIndications:S leep disturbances Take 1 Tab by mouth at bedtime. 30 Tab 5 05/18/2018 Active potassium chloride ER 10 MEQ TBCRIndications:Hyp okalemia With food. Pt reports only taking once dailly. 60 Tab 5 05/18/2018 Active MetFORMIN (GLUCOPHAGE) 1000 MG TabletIndications:T ype 2 diabetes mellitus with hemoglobin A1c goal of less than 7.0% (HCC) Take 1 Tab by mouth 2 times a day. With food. 60 Tab 5 05/18/2018 Active omeprazole (PRILOSEC) 20 MG CPDR Take 1 Cap by mouth daily. 30 Cap 5 05/18/2018 Active atorvaSTATin (LIPITOR) 40 MG TabletIndications:D yslipidemia, goal LDL below 70 Take 1 Tab by mouth at bedtime. 30 Tab 5 05/18/2018 Active furosemide (LASIX) 20 MG TabletIndications:L ocalized edema,Venous stasis dermatitis of both lower extremities One pill by mouth once a day, as needed for edema 30 Tab 5 05/18/2018 Active fexofenadine (BERNARDA) 180 MG TabletIndications:A llergic [...] 5 05/18/2018 Active Dulaglutide (TRULICITY) 1.5 MG/0.5ML SOPNIndications:Typ e 2 diabetes mellitus with hemoglobin A1c goal of less than 7.0% ([facility]) Inject 1 syringeful once weekly 4 Pre-filled Pen Syringe Dosing Unit 5 05/18/2018 Active insulin glargine (LANTUS SOLOSTAR) 100 UNIT/ML SOPNIndications:Typ e 2 diabetes mellitus with hemoglobin A1c goal of less than 7.0% ([facility]) Inject 24 units at bed time 5 Pre-filled Pen Syringe Dosing Unit 3 05/18/2018 Active oxybutynin (DITROPAN) 5 MG Tablet Take 1 Tab by mouth 2 times a day. Through urology 60 Tab 5 05/29/2018 Active Hydrocodone-Acetami nophen 10-325 MG per tabletIndications:S jennifer stenosis of lumbar region without neurogenic claudication,DDD (degenerative disc disease), lumbar,MEDICATION USE AGREEMENT TAKE 1 TABLET TWICE DAILY NEEDED FOR PAIN 60 Tab 0 06/15/2018 Active cyclobenzaprine (FLEXERIL) 10 MG Tablet TAKE 1 TABLET BY MOUTH AT BEDTIME 30 Tab 0 07/06/2018 Active cyclobenzaprine (FLEXERIL) 10 MG Tablet TAKE 1 TABLET BY MOUTH AT BEDTIME 30 Tab 0 06/04/2018 07/05/20 18 Discontinued as of this encounter Active Problems Problem Noted Date THAD on CPAP 12/26/2017 Cirrhosis of liver (HCC) 11/20/2017 History of Clostridium difficile colitis 08/29/2017 Chronic pain syndrome 01/17/2017 MEDICATION USE AGREEMENT 01/17/2017 Overview: 01/17/17 Acquired hypothyroidism 12/12/2016 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 1 10/09/2015 Obesity, morbid (more than 100 lbs over ideal weight or BMI > 40) ([facility]) 02/09/2015 Restrictive lung disease 12/10/2014 Type 2 diabetes mellitus with hemoglobin A1c goal of less than 7.0% ([facility]) 09/26/2013 Overview: ICD-10 update of inactive term Vitamin D deficiency 09/26/2013 Lymphedema 03/11/2013 Intermittent asthma with reliever use up to twice per week 01/09/2013 Stasis dermatitis 05/07/2012 NG (nonalcoholic steatohepatitis) 04/12 HTN, goal below 140/90 03/27/2012 Chronic rhinitis 03/27/2012 Cerebral palsy ([facility]) 01/24/2012 Spinal stenosis of lumbar [...] of 50.0 to 59.9 in adult ( [facility]) 06/12/2017 12/19/2017 Overview: Per Obesity protocol #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 7 02/13/2018 Atypical chest pain 08/19/2016 01/17/2017 Depression with anxiety 08/19/2016 02/14/20 18 Hepatic cirrhosis ([facility]) 08/19/2016 03/28/20 17 Polyuria 08/09/2016 01/17/2017 Urinary frequency 08/09/2016 01/17/2017 Generalized OA 06/14/2016 03/28/2017 Body mass index (BMI) of 45.0-49.9 in adult ([facility] ) 12/09/2015 01/17/2017 Overview: bmi= [...] or BMI > 40) ([facility]) 10/28/2013 01/17/2017 Overview: bmi= 53.93 [...] or BMI > 40) ([facility]) 05/25/2012 01/17/2017 Overview: BMI= 55.27 [...] chronic, stage III (GFR 30-59 ml /min) ([facility]) 01/24/2012 03/27/2012 Chronic pain 01/24/2012 01/17/2017 Genetic Sleep Disorder Research Other*[id number] 05/13/2011 04/07/2016 Obstructive sleep apnea 01/18/2011 12/27/19 [...] ideal weight or BMI > 40) (HCC) 12/08/2009 07/02/2014 Overview: Per Obesity Taxonomy ICD-10 [...] Telephone Encounter - Brianne Pal PA-C - 07/06/2018 1:47 PM EDT Signed Prescriptions: Disp Refills cyclobenzaprine (FLEXERIL) 10 MG Tablet 30 Tab 0 Sig: TAKE 1 TABLET BY MOUTH AT BEDTIME Authorizing Provider: BRIANNE PAL * Telephone Encounter - Jovana Lambert RN - 07/06/2018 11:00 AM EDT Pending Prescriptions: Disp Refills cyclobenzaprine (FLEXERIL) 10 MG Tablet [*30 Tab 0 Sig: TAKE 1 TABLET BY MOUTH AT BEDTIME * Telephone Encounter - Jovana Lambert, UMA - 07/06/2018 10:59 AM EDT Formatting of this note may be different from the original. Pending Prescriptions: Disp Refills cyclobenzaprine (FLEXERIL) 10 MG Tablet [*30 Tab 0 Sig: TAKE 1 TABLET BY MOUTH AT BEDTIME Last Office Visit: 06/07/2018 Next Office Visit: 08/21/2018 Scheduled Provider(s): Rajwinder Carter, DO If no future appointments scheduled, and last appointment is greater than a year ago, please schedule patient for a follow-up appointment Last date the medication was ordered: 06/04/18 Patient Phone Numbers Labs: Lab Results Component Value Date/Time CREAT 1.00 06/16/2018 CREAT 0.7 02/13/2018 03:27 PM POTASSIUM 4.2 02/13/2018 03:27 PM TSH 0.02 (L) 03/28/2018 04:20 PM LDLCALC 57 05/05/2016 10:19 AM LDLDIRECT 57 10/11/2017 01:18 PM ALT 26 02/13/2018 03:27 PM HGBA1C 7.1 (H) 02/13/2018 03:27 PM in this encounter Plan of Treatment Upcoming Encounters Date Type Specialty Care Team Description 07/16/2018 Nutrition Services Gastroenterology Melissa Omalley, [place] [address] [place] [address] 07/16/2018 Office Visit Gastroenterology Lyssa Stout CRNP [address] [place] [address] [phone] 08/07/2018 Office Visit Sleep Disorders Lanette Fields CRNP [address] [place] [address] [phone] Nurse [facility] [address] [place] [address] [phone] 08/21/2018 Office Visit Family Medicine Rajwinder Carter DO [address] [facility] [place] [address] [phone] 08/23/2018 Office Visit Dermatology Rachel Hill MD [address] [place] [address] [phone] 09/21/2018 Pharmacy Pharmacy [facility] [address] [place] [facility] [place] [address] [phone] 09/26/2018 Nurse Only Gastroenterology Dom, Nurse Gastro [facility] [address] [place] [address] [phone] 12/19/2018 Office Visit Gynecology Obstetrics Irene Mujica CRNP [address] [place] [address] [phone] 06/18/2019 Office Visit Optometry Jarett Schmitt, OD [address] [place], [place] [id number] Health Maintenance Due Date Last Done Comments [...]
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
--- OUTSIDE RECORDS SUMMARY | 2023-05-10 23:18 | External Medical Summary | Summary of Care ---
Author Name Unknown Organization [place] [address] Phone Care Team Providers Care Contact Center Agent Name Role Phone ArabellaRajwinder thacker Belen MORENO Primary Care Provider [phone] Reason for Visit * Reason Comments FYI Encounter Details Date Type Department Care Team Description 07/11/2018 Telephone [facility] [address] [place] [address] Torrie Slaughter PA-C [address] [place] [address] [phone] FYI Allergies Active Allergy Reactions Severity Noted [...] bedtime 30 Each 3 10/11/2017 Active nystatin 125989 UNIT/GM creamIndications:Cand idal vulvovaginitis Apply topically to affected area 2 times a day. To affacted area for two weeks. 15 g 2 10/12/2017 Active Blood Glucose Monitoring Suppl (NextGreatPlace VERIO) w/Device KITIndications:Type 2 diabetes mellitus with hemoglobin A1c goal of less than 7.0% (HCC) Use up to 4 times a day E11.9 1 Kit 0 10/17/2017 Active Glucose Blood (Patients Know BestTOUCH VERIO) STRP Use up to four times [...] less than 7.0% ([facility]) Inject 1 syringeful once weekly 4 Pre-filled Pen Syringe Dosing Unit 5 05/18/2018 Active insulin glargine (LANTUS SOLOSTAR) 100 UNIT/ML SOPNIndications:Type 2 diabetes mellitus with hemoglobin A1c goal of less than 7.0% ([facility]) Inject 24 units at bed [...] BMI > 40) ([facility]) 02/09/2015 Restrictive lung disease 12/10/2014 Type 2 diabetes mellitus with hemoglobin A1c goal of less than 7.0% ([facility]) 09/26/2013 Overview: ICD-10 update of inactive term Vitamin D deficiency 09/26/2013 Lymphedema 03/11/2013 Intermittent asthma with reliever use up to twice per week 01/09/2013 Stasis dermatitis 05/07/2012 NG (nonalcoholic steatohepatitis) 04/12 HTN, goal below 140/90 03/27/2012 Chronic rhinitis 03/27/2012 Cerebral palsy ([facility]) 01/24/2012 Spinal stenosis of lumbar region [...] of 50.0 to 59.9 in adult ( [facility]) 06/12/2017 12/19/2017 Overview: Per Obesity protocol #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 7 02/13/2018 Atypical chest pain 08/19/2016 01/17/2017 Depression with anxiety 08/19/2016 02/14/20 18 Hepatic cirrhosis ([facility]) 08/19/2016 03/28/20 17 Polyuria 08/09/2016 01/17/2017 Urinary frequency 08/09/2016 01/17/2017 Generalized OA 06/14/2016 03/28/2017 Body mass index (BMI) of 45.0-49.9 in adult ([facility] ) 12/09/2015 01/17/2017 Overview: bmi= 48.04 12/09/15 Need for shingles vaccine 12/09/20152015 Bilateral shoulder pain 08/25/2015 06/07/20 16 Bilateral shoulder pain 07/16/2015 06/07/20 16 Cerebral palsy ([facility]) 04/23/2015 03/28/2017 Candidal vulvovaginitis 02/12/2015 06/07/20 [...] BMI > 40) ([facility]) 10/28/2013 01/17/2017 Overview: bmi= 53.93 10/28/13 [...] BMI > 40) ([facility]) 05/25/2012 01/17/2017 Overview: BMI= 55.27 05/25/12 [...] chronic, stage III (GFR 30-59 ml /min) ([facility]) 01/24/2012 03/27/2012 Chronic pain 01/24/2012 01/17/2017 Genetic Sleep Disorder Research Other*[id number] 05/13/2011 04/07/2016 Obstructive sleep apnea 01/18/2011 12/27/19 [...] BMI > 40) ([facility]) 12/08/2009 07/02/2014 Overview: Per Obesity Taxonomy [...] Miscellaneous Notes * Telephone Encounter - Dominique Franco, THAD - 07/11/2018 12:39 PM EDT Hector called. She is accompanying the patient as they were sent to [facility]. They thought they were to goto the lab, but were actually to report to the ER. Guera in the office confirmed that and I relayed that information to Hector for Shaina. in this encounter Plan of Treatment Upcoming Encounters Date Type Specialty Care Team Description 07/16/2018 Nutrition Services Gastroenterology Melissa Omalley, SAMANTHA [address] [place] [address] 07/16/2018 Office Visit Gastroenterology Lyssa Stout CRNP [address] [place] [address] [address] [phone] 08/07/2018 Office Visit Sleep Disorders Lanette Fields CRNP [address] [place] [address] [address] [phone] [place] Nurse Sleep Disorders [address] [place] [address] [address] [phone] 08/21/2018 Office Visit Family Medicine Rajwinder Carter DO [address] [facility] [place] [address] [phone] 08/23/2018 Office Visit Dermatology Rachel Hill MD [address] [place] [address] [phone] 09/21/2018 Pharmacy Pharmacy [facility] [address] [place] [facility] [place] [address] [phone] 09/26/2018 Nurse Only Gastroenterology Dom, Nurse Gastro Chau [address] [place] [address] [phone] 12/19/2018 Office Visit Gynecology Obstetrics Irene Mujica CRNP [address] [facility] [place] [address] [phone] 06/18/2019 Office Visit Optometry Jarett Schmitt, OD [address] [place], [place] [id number] Health Maintenance Due Date Last Done Comments [...]
--- OUTSIDE RECORDS SUMMARY | 2023-05-10 23:18 | External Medical Summary | Summary of Care ---
Author Name Unknown Organization [place] [address] Phone Care Team Providers Care Lugger Name Role Phone ArabellaRajwinder thacker Belen MORENO Primary Care Provider [phone] Reason for Visit * Reason Comments ANXIETY Encounter Details Date Type Department Care Team Description 07/11/[address] [facility] [address] [place] [address] Torrie Slaughter PA-C [address] [place] [address] [phone] Acute chest pain*;Anxiety Allergies Active Allergy Reactions [...] bedtime 30 Each 3 10/11/2017 Active nystatin 416356 UNIT/GM creamIndications:Cand idal vulvovaginitis Apply topically to affected area 2 times a day. To affacted area for two weeks. 15 g 2 10/12/2017 Active Blood Glucose Monitoring Suppl (Dryad VERIO) w/Device KITIndications:Type 2 diabetes mellitus with hemoglobin A1c goal of less than 7.0% (HCC) Use up to 4 times a day E11.9 1 Kit 0 10/17/2017 Active Glucose Blood (MozillaTOUCH VERIO) STRP Use up to four times [...] of less than 7.0% ([facility]) Inject 1 syringeful once weekly 4 Pre-filled Pen Syringe Dosing Unit 5 05/18/2018 Active insulin glargine (LANTUS SOLOSTAR) 100 UNIT/ML SOPNIndications:Type 2 diabetes mellitus with hemoglobin A1c goal of less than 7.0% ([facility]) Inject 24 units at bed [...] over ideal weight or BMI > 40) ([facility]) 02/09/2015 Restrictive lung disease 12/10/2014 Type 2 diabetes mellitus with hemoglobin A1c goal of less than 7.0% ([facility]) 09/26/2013 Overview: ICD-10 update of inactive term Vitamin D deficiency 09/26/2013 Lymphedema 03/11/2013 Intermittent asthma with reliever use up to twice per week 01/09/2013 Stasis dermatitis 05/07/2012 NG (nonalcoholic steatohepatitis) 04/12 HTN, goal below 140/90 03/27/2012 Chronic rhinitis 03/27/2012 Cerebral palsy ([facility]) 01/24/2012 Spinal stenosis of lumbar [...] of 50.0 to 59.9 in adult ( [facility]) 06/12/2017 12/19/2017 Overview: Per Obesity protocol #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 7 02/13/2018 Atypical chest pain 08/19/2016 01/17/2017 Depression with anxiety 08/19/2016 02/14/20 18 Hepatic cirrhosis ([facility]) 08/19/2016 03/28/20 17 Polyuria 08/09/2016 01/17/2017 Urinary frequency 08/09/2016 01/17/2017 Generalized OA 06/14/2016 03/28/2017 Body mass index (BMI) of 45.0-49.9 in adult ([facility] ) 12/09/2015 01/17/2017 Overview: bmi= 48.04 12/09/15 Need for shingles vaccine 12/09/20152015 Bilateral shoulder pain 08/25/2015 06/07/20 16 Bilateral shoulder pain 07/16/2015 06/07/20 16 Cerebral palsy ([facility]) 04/23/2015 03/28/2017 Candidal vulvovaginitis 02/12/2015 [...] over ideal weight or BMI > 40) ([facility]) 10/28/2013 01/17/2017 Overview: bmi= 53.93 [...] over ideal weight or BMI > 40) ([facility]) 05/25/2012 01/17/2017 Overview: BMI= 55.27 [...] chronic, stage III (GFR 30-59 ml /min) ([facility]) 01/24/2012 03/27/2012 Chronic pain 01/24/2012 01/17/2017 Genetic Sleep Disorder Research Other*[id number] 05/13/2011 04/07/2016 Obstructive sleep apnea 01/18/2011 12/27/19 [...] over ideal weight or BMI > 40) ([facility]) 12/08/2009 07/02/2014 Overview: Per Obesity [...] region without neurogenic claudication M48.061 Cerebral palsy ([facility]) G80.9 HTN, goal below 140/90 I10 Chronic rhinitis J31.0 NG (nonalcoholic steatohepatitis) K75.81 Stasis dermatitis I87.2 DDD (degenerative disc disease), lumbar M51.36 Intermittent asthma with reliever use up to twice per week J45.20 Lymphedema I89.0 Type 2 diabetes mellitus with hemoglobin A1c goal of less than 7.0% ([facility]) E11.9 Vitamin D deficiency E55.9 Restrictive lung disease J98.4 Obesity, morbid (more than 100 lbs over ideal weight or BMI > 40) ([facility]) E66.01 Dyslipidemia, goal LDL below 70 E78.5 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 R39.81 Acquired hypothyroidism E03.9 Chronic pain syndrome G89.4 MEDICATION USE AGREEMENT [id number] History of Clostridium difficile colitis Z86.19 Cirrhosis of liver ([facility]) K74.60 THAD on CPAP G47.33, Z99.89 Past Surgical History: Procedure Laterality Date DELIVERY 04/20/1982 COLONOSCOPY 04/21/09 repeat in 10 years COLONOSCOPY, DIAGNOSTIC (RECTUM) 10/04/2016 normal bx, repeat 10 yrs/[facility] DENTAL SURGERY PROCEDURE NEC wisdom teeth x 4 DILATION AND CURETTAGE (D&C) EGD, FLEXIBLE, DIAGNOSTIC 10/04/2016 gastritis/[facility] EGD, FLEXIBLE, DIAGNOSTIC 01/11/2018 eso varices, retained food, repeat 1 yr/[facility] PELVIS/HIP JOINT SURGERY NEC teenager [...] 500 mg by mouth daily. Glucose Blood (iSitesUCH VERAll-Star [facility] Center) STRP Use up to four times a day as directed.DX:E11.9 400 Strip 3 Blood Glucose Monitoring Suppl ([employer]) w/Device KIT Use up to 4 times a day E11.9 1 Kit 0 nystatin 959726 UNIT/GM cream Apply topically to affected area [...] file for this visit. Torrie Slaughter PA-C [address] [address] This chart was completed in part utilizing edupristine Speech Voice Recognition Software. Grammatical errors, random word insertions, prounoun errors, and incomplete sentences are an occasional consequence of this system due to software limitations, ambient noise, and hardware issues. Any formal questions or concerns about the content, text, or information contained within the body of this dictation should be directly addressed to the provider for clarification. in this encounter Nursing Notes * Shannan Bojorquez LPN - 07/11/2018 10:38 AM EDT Anxiety, mid chest pain. in this encounter Plan of Treatment Upcoming Encounters Date Type Specialty Care Team Description 07/16/2018 Nutrition Services Gastroenterology Melissa Omalley, SAMANTHA [address] [place] [address] [place] [address] 07/16/2018 Office Visit Gastroenterology Lyssa Stout CRNP [address] [place] [address] [address] [phone] 08/07/2018 Office Visit Sleep Disorders Lanette Fields CRNP [address] [place] [address] [phone] Gw, Nurse Sleep Disorders [address] [facility] [place] [address] [phone] 08/21/2018 Office Visit Family Medicine Rajwinder Carter DO [address] [place] [address] [phone] 08/23/2018 Office Visit Dermatology Rachel Hill MD [address] [place] [address] [phone] 09/21/2018 Pharmacy Pharmacy [facility] [address] [place] [address] [phone] 09/26/2018 Nurse Only Gastroenterology Nurse Dom G[facility] [address] [facility] [address] [phone] 12/19/2018 Office Visit Gynecology Obstetrics Irene Mujica CRNP [address] [facility] [place] [address] [phone] 06/18/2019 Office Visit Optometry Jarett Schmitt, OD [address] [place] [address] Scheduled Tests Name Priority Associated [...]
--- OUTSIDE RECORDS SUMMARY | 2023-05-10 23:18 | External Medical Summary | Summary of Care ---
Author Name Unknown Organization [place] [address] Phone Care Team Providers Care Senior Environmental Practice Leader Name Role Phone Rajwinder Carter DO Primary Care Provider [phone] Reason for Visit * Reason Comments EMERGENCY DEPARTMENT FOLLOW-UP Encounter Details Date Type Department Care Team Description 07/11/2018 Telephone [facility] [address] [place] [address] Rajwinder Carter DO [address] [place] [address] [phone] EMERGENCY DEPARTMENT FOLLOW-UP Allergies Active Allergy Reactions Severity Noted Date [...] bedtime 30 Each 3 10/11/2017 Active nystatin 487063 UNIT/GM creamIndications:Cand idal vulvovaginitis Apply topically to affected area 2 times a day. To affacted area for two weeks. 15 g 2 10/12/2017 Active Blood Glucose Monitoring Suppl (Polyplus-transfection VERIO) w/Device KITIndications:Type 2 diabetes mellitus with hemoglobin A1c goal of less than 7.0% (HCC) Use up to 4 times a day E11.9 1 Kit 0 10/17/2017 Active Glucose Blood (Studio PangeaTOUCH VERIO) STRP Use up to four times [...] of less than 7.0% ([facility]) Inject 1 syringeful once weekly 4 Pre-filled Pen Syringe Dosing Unit 5 05/18/2018 Active insulin glargine (LANTUS SOLOSTAR) 100 UNIT/ML SOPNIndications:Type 2 diabetes mellitus with hemoglobin A1c goal of less than 7.0% ([facility]) Inject 24 units at bed time 5 [...] weight or BMI > 40) ([facility]) 02/09/2015 Restrictive lung disease 12/10/2014 Type 2 diabetes mellitus with hemoglobin A1c goal of less than 7.0% ([facility]) 09/26/2013 Overview: ICD-10 update of inactive term Vitamin D deficiency 09/26/2013 Lymphedema 03/11/2013 Intermittent asthma with reliever use up to twice per week 01/09/2013 Stasis dermatitis 05/07/2012 NG (nonalcoholic steatohepatitis) 04/12 HTN, goal below 140/90 03/27/2012 Chronic rhinitis 03/27/2012 Cerebral palsy ([facility]) 01/24/2012 Spinal stenosis of lumbar region without [...] of 50.0 to 59.9 in adult ( [facility]) 06/12/2017 12/19/2017 Overview: Per Obesity protocol #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 7 02/13/2018 Atypical chest pain 08/19/2016 01/17/2017 Depression with anxiety 08/19/2016 02/14/20 18 Hepatic cirrhosis ([facility]) 08/19/2016 03/28/20 17 Polyuria 08/09/2016 01/17/2017 Urinary frequency 08/09/2016 01/17/2017 Generalized OA 06/14/2016 03/28/2017 Body mass index (BMI) of 45.0-49.9 in adult ([facility] ) 12/09/2015 01/17/2017 Overview: bmi= 48.04 12/09/15 Need for shingles vaccine 12/09/20152015 Bilateral shoulder pain 08/25/2015 06/07/20 16 Bilateral shoulder pain 07/16/2015 06/07/20 16 Cerebral palsy ([facility]) 04/23/2015 03/28/2017 Candidal vulvovaginitis 02/12/2015 06/07/20 16 [...] weight or BMI > 40) ([facility]) 10/28/2013 01/17/2017 Overview: bmi= 53.93 10/28/13 Sleep [...] weight or BMI > 40) ([facility]) 05/25/2012 01/17/2017 Overview: BMI= 55.27 05/25/12 Impacted [...] chronic, stage III (GFR 30-59 ml /min) ([facility]) 01/24/2012 03/27/2012 Chronic pain 01/24/2012 01/17/2017 Genetic Sleep Disorder Research Other*[id number] 05/13/2011 04/07/2016 Obstructive sleep apnea 01/18/2011 12/27/19 [...] weight or BMI > 40) ([facility]) 12/08/2009 07/02/2014 Overview: Per Obesity Taxonomy ICD-10 [...] Telephone Encounter - Vivian Izquierdo LPN - 07/11/2018 3:18 PM EDT Pt went to [facility] for chest pain today 07/11. Everything came back fine, Labs x- ray and ekg. Scheduled with Rajwinder 07/13 at 11 * Telephone Encounter - Gustavo Bautista OSA - 07/11/2018 3:16 PM EDT Reason for patient's call: er follow up- [facility] 07/11 - chest pain Caller was transferred to [facility] at the dedicated phone nurse line. in this encounter Plan of Treatment Upcoming Encounters Date Type Specialty Care Team Description 07/13/2018 Office Visit Family Medicine Rajwinder Carter DO [address] [place] [address] [id number] 07/16/2018 Nutrition Services Gastroenterology Melissa Omalley RDN [address] [facility] [address] [place] [address] 07/16/2018 Office Visit Gastroenterology Lyssa Stout CRNP [address] [facility] [place] [address] [phone] 08/07/2018 Office Visit Sleep Disorders Lanette Fields CRNP [address] [place] [address] [phone] [place] Nurse Sleep Disorders [address] [place] [address] [phone] 08/21/2018 [facility] [address] [place] [facility] [place] [address] [phone] 08/23/2018 Office Visit Dermatology Rachel Hill MD [address] [place] [address], [place] [address] [phone] 09/21/2018 Pharmacy Pharmacy [facility] [address] [place] [address] [phone] 09/26/2018 Nurse Only Gastroenterology Nurse Dom Gastro Chau [address] [place] [address] [phone] 12/19/2018 Office Visit Gynecology Obstetrics Irene [facility]ujica CRNP [address] [facility] [address] [phone] 06/18/2019 Office Visit Optometry Jarett Schmitt, OD [address] [place], [place] [id number] Health Maintenance Due Date Last Done Comments [...]
--- OUTSIDE RECORDS SUMMARY | 2023-05-10 23:18 | External Medical Summary | Summary of Care ---
Author Name Unknown Organization [place] [address] Phone Care Team Providers Care [employer] Social Worker Name Role Phone Rajwinder Carter DO Primary Care Provider [phone] Encounter Details Date Type Department Care Team Description 07/12/2018 Orders Only [place] [address] [place] [address] Rajwinder Carter DO [address] [place] [address] [phone] Allergies Active Allergy Reactions Severity Noted Date [...] bedtime 30 Each 3 10/11/2017 Active nystatin 829957 UNIT/GM creamIndications:Cand idal vulvovaginitis Apply topically to affected area 2 times a day. To affacted area for two weeks. 15 g 2 10/12/2017 Active Blood Glucose Monitoring Suppl (Data ImpactIO) w/Device KITIndications:Type 2 diabetes mellitus with hemoglobin A1c goal of less than 7.0% (HCC) Use up to 4 times a day E11.9 1 Kit 0 10/17/2017 Active Glucose Blood ([employer]TOUCH VERIO) STRP Use up to four times a day as directed.DX:E11. 9 400 Strip 3 12/04/2017 Active vitamin c (ASCORBIC ACID) 500 MG Tablet Take 500 mg by mouth daily. Active BD PEN NEEDLE MINI U/F 31G X 5 MMIndications:Type 2 diabetes mellitus with hemoglobin A1c goal of less than 7.0% ([facility]) Use with Basaglar at bedtime. 30 Each [...] 7.0% ([facility]) Inject 24 units at bed [...] > 40) ([facility]) 02/09/2015 Restrictive lung disease 12/10/2014 Type 2 diabetes mellitus with hemoglobin A1c goal of less than 7.0% ([facility]) 09/26/2013 Overview: ICD-10 update of inactive term Vitamin D deficiency 09/26/2013 Lymphedema 03/11/2013 Intermittent asthma with reliever use up to twice per week 01/09/2013 Stasis dermatitis 05/07/2012 NG (nonalcoholic steatohepatitis) 04/12 HTN, goal below 140/90 03/27/2012 Chronic rhinitis 03/27/2012 Cerebral palsy ([facility]) 01/24/2012 Spinal stenosis of lumbar [...] of 50.0 to 59.9 in adult ( [facility]) 06/12/2017 12/19/2017 Overview: Per Obesity protocol #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 7 02/13/2018 Atypical chest pain 08/19/2016 01/17/2017 Depression with anxiety 08/19/2016 02/14/20 18 Hepatic cirrhosis ([facility]) 08/19/2016 03/28/20 17 Polyuria 08/09/2016 01/17/2017 Urinary frequency 08/09/2016 01/17/2017 Generalized OA 06/14/2016 03/28/2017 Body mass index (BMI) of 45.0-49.9 in adult ([facility] ) 12/09/2015 01/17/2017 Overview: bmi= 48.04 12/09/15 Need for shingles vaccine 12/09/20152015 Bilateral shoulder pain 08/25/2015 06/07/20 16 Bilateral shoulder pain 07/16/2015 06/07/20 16 Cerebral palsy ([facility]) 04/23/2015 03/28/2017 Candidal vulvovaginitis 02/12/2015 [...] > 40) ([facility]) 10/28/2013 01/17/2017 Overview: bmi= 53.93 [...] > 40) ([facility]) 05/25/2012 01/17/2017 Overview: BMI= 55.27 [...] chronic, stage III (GFR 30-59 ml /min) ([facility]) 01/24/2012 03/27/2012 Chronic pain 01/24/2012 01/17/2017 Genetic Sleep Disorder Research Other*[id number] 05/13/2011 04/07/2016 Obstructive sleep apnea 01/18/2011 12/27/19 [...] > 40) ([facility]) 12/08/2009 07/02/2014 Overview: Per Obesity [...] Rajwinder Carter DO [address] [place] [address] [address] [phone] 07/16/2018 Nutrition Services Gastroenterology Melissa Omalley, [place] [address] [facility] [address] [place] [address] [phone] 07/16/2018 Office Visit Gastroenterology Lyssa Stout CRNP [address] [place] [address] [address] [phone] 08/07/2018 Office Visit Sleep Disorders Lanette Fields CRNP [address] [place] [address] [address] [phone] [place] Nurse Sleep Disorders [address] [place] [address] [address] [phone] 08/21/2018 Office Visit Family Medicine Rajwinder Carter DO [address] [place] [address] [address] [phone] 08/23/2018 Office Visit Dermatology Rachel Hill MD [address] [place] [address] [phone] 09/21/2018 Pharmacy Pharmacy [facility] [address] [place] [address] [phone] 09/26/2018 Nurse Only Gastroenterology Nurse Dom Gastro Chau [address] [place] [address] [phone] 12/19/2018 Office Visit Gynecology Obstetrics Irene Mujica CRNP [address] [facility] [address] [phone] 06/18/2019 Office Visit Optometry Jarett Schmitt, OD [address] [place], [place] [address] Pending Results Name Priority Associated Diagnoses Date/Ti me CHEMISTRY-OUTSIDE Routine 07/11/2018 12:00 AM EDT Health Maintenance Due Date Last Done [...]
--- OUTSIDE RECORDS SUMMARY | 2023-05-10 23:19 | External Medical Summary | Summary of Care ---
Author Name Unknown Organization [place] [address] Phone Care Team Providers Care City Bailiff Name Role Phone Rajwinder Lara DO Primary Care Provider [phone] Reason for Visit * Reason Comments eRx-Medication Refill Encounter Details Date Type Department Care Team Description 06/15/2018 Refill [place] [address] [place] [address] Rajwinder Lara DO [facility] [place] [address] [phone] Spinal stenosis of lumbar region without neurogenic claudication;DDD (degenerative disc disease), lumbar;MEDICATION USE AGREEMENT Allergies Active Allergy Reactions Severity [...] bedtime 30 Each 3 10/11/2017 Active nystatin 269983 UNIT/GM creamIndications:Ca ndidal vulvovaginitis Apply topically to affected area 2 times a day. To affacted area for two weeks. 15 g 2 10/12/2017 Active Blood Glucose Monitoring Suppl (Avenso VERIO) w/Device KITIndications:Type 2 diabetes mellitus with hemoglobin A1c goal of less than 7.0% (HCC) Use up to 4 times a day E11.9 1 Kit 0 10/17/2017 Active Glucose Blood (QuerylyUCH VERIO) STRP Use up to four times [...] MOUTH AT BEDTIME 30 Tab 0 06/04/2018 Active Hydrocodone-Acetami nophen 10-325 MG per tabletIndications:S jennifer stenosis of lumbar region without neurogenic claudication,DDD (degenerative disc disease), lumbar,MEDICATION USE AGREEMENT TAKE 1 TABLET TWICE DAILY NEEDED FOR PAIN 60 Tab 0 06/15/2018 Active Hydrocodone-Acetami nophen 10-325 MG per tabletIndications:S jennifer stenosis of lumbar region without neurogenic claudication,DDD (degenerative disc disease), lumbar,MEDICATION USE AGREEMENT take 1 tablet by mouth twice a day if needed for pain 60 Tab 0 05/18/2018 06/15/20 18 Discontinued as of this encounter Active Problems Problem Noted Date THAD on CPAP 12/26/2017 Cirrhosis of liver ([facility]) 11/20/2017 History of Clostridium difficile colitis 08/29/2017 Chronic pain syndrome 01/17/2017 MEDICATION USE AGREEMENT 01/17/2017 Overview: 01/17/17 Acquired hypothyroidism 12/12/2016 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 1 10/09/2015 Obesity, morbid (more than 100 lbs over ideal weight or BMI > 40) ([facility]) 02/09/2015 Restrictive lung disease 12/10/2014 Type 2 diabetes mellitus with hemoglobin A1c goal of less than 7.0% ([facility]) 09/26/2013 Overview: ICD-10 update of inactive term Vitamin D deficiency 09/26/2013 Lymphedema 03/11/2013 Intermittent asthma with reliever use up to twice per week 01/09/2013 Stasis dermatitis 05/07/2012 NG (nonalcoholic steatohepatitis) 04/12 HTN, goal below 140/90 03/27/2012 Chronic rhinitis 03/27/2012 Cerebral palsy ([facility]) 01/24/2012 Spinal stenosis of lumbar region [...] of 50.0 to 59.9 in adult ( [facility]) 06/12/2017 12/19/2017 Overview: Per Obesity protocol #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 7 02/13/2018 Atypical chest pain 08/19/2016 01/17/2017 Depression with anxiety 08/19/2016 02/14/20 18 Hepatic cirrhosis (HCC) 08/19/2016 03/28/20 17 Polyuria 08/09/2016 01/17/2017 Urinary frequency 08/09/2016 01/17/2017 Generalized OA 06/14/2016 03/28/2017 Body mass index (BMI) of 45.0-49.9 in adult ([facility] ) 12/09/2015 01/17/2017 Overview: bmi= 48.04 12/09/15 Need for shingles vaccine 12/09/20152015 Bilateral shoulder pain 08/25/2015 06/07/20 16 Bilateral shoulder pain 07/16/2015 06/07/20 16 Cerebral palsy ([facility]) 04/23/2015 03/28/2017 Candidal vulvovaginitis 02/12/2015 06/07/20 [...] ideal weight or BMI > 40) ([facility]) 10/28/2013 01/17/2017 Overview: bmi= 53.93 10/28/13 [...] ideal weight or BMI > 40) ([facility]) 05/25/2012 01/17/2017 Overview: BMI= 55.27 05/25/12 [...] chronic, stage III (GFR 30-59 ml /min) ([facility]) 01/24/2012 03/27/2012 Chronic pain 01/24/2012 01/17/2017 Genetic Sleep Disorder Research Other*[id number] 05/13/2011 04/07/2016 Obstructive sleep apnea 01/18/2011 12/27/19 [...] Telephone Encounter - Rajwinder Lara DO - 06/15/2018 12:17 PM EDT Signed Prescriptions: Disp Refills Hydrocodone-Acetaminophen 10-325 MG per ta*60 Tab 0 Sig: TAKE 1 TABLET TWICE DAILY NEEDED FOR PAIN Authorizing Provider: RAJWINDER LARA * Telephone Encounter - Rajwinder Lara DO - 06/15/2018 12:17 PM EDT Rx sent. * Telephone Encounter - Kiesha Schmitt LPN - 06/15/2018 9:48 AM EDT Pending Prescriptions: Disp Refills Hydrocodone-Acetaminophen 10-325 MG per t*60 Tab 0 Sig: TAKE 1 TABLET TWICE DAILY NEEDED FOR PAIN * Telephone Encounter - Kiesha Schmitt LPN - 06/15/2018 9:47 AM EDT I have reviewed the patients controlled substance dispensing history in the Prescription Drug Monitoring Program in compliance with the [facility] regulations before prescribing a controlled substance. 05/18/2018 Last Tox Screen Results: No results found. However, due to the size of the patient record, not all encounters were searched.Please check Results Review for a complete set of results. * Telephone Encounter - Vivian Izquierdo LPN - 06/15/2018 9:39 AM EDT Pending Prescriptions: Disp Refills Hydrocodone-Acetaminophen 10-325 MG per t*60 Tab 0 Sig: TAKE 1 TABLET TWICE DAILY NEEDED FOR PAIN * Telephone Encounter - Vivian Izquierdo LPN - 06/15/2018 9:39 AM EDT Formatting of this note may be different from the original. Pending Prescriptions: Disp Refills Hydrocodone-Acetaminophen 10-325 MG per t*60 Tab 0 Sig: TAKE 1 TABLET TWICE DAILY NEEDED FOR PAIN Last Office Visit: 06/07/2018 Next Office Visit: 08/21/2018 Scheduled Provider(s): Rajwinder Lara DO Last date [...] ([facility]) E11.9 Vitamin D deficiency E55.9 Restrictive lung disease J98.4 Obesity, morbid (more than 100 lbs over ideal weight or BMI > 40) ([facility]) E66.01 Dyslipidemia, goal LDL below 70 E78.5 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 R39.81 Acquired hypothyroidism E03.9 Chronic pain syndrome G89.4 MEDICATION USE AGREEMENT CS2504 History of Clostridium difficile colitis Z86.19 Cirrhosis of liver ([facility]) K74.60 THAD on CPAP G47.33, Z99.89 Labs: CREATININE(mg/dL) Lucio Dt/Tm Resulted Value Status 02/13/18 3:27P 02/13/18 0.7 FINAL POTASSIUM(mmol/L) Lucio Dt/Tm Resulted Value Status 02/13/18 3:27P 02/13/18 4.2 FINAL TSH(uIU/mL) Lucio Dt/Tm Resulted Value [...] [place] [address] [place] [address] [place] [address] [phone] 07/16/2018 Office Visit Gastroenterology Lyssa Stout CRNP [address] [place] [address] [phone] 08/07/2018 Office Visit Sleep Disorders Lanette Fields CRNP [address] [place] [address] [phone] [place], Nurse Sleep Disorders [address] [place] [address] [phone] 08/21/2018 Office Visit Family Medicine Rajwinder Lara DO [address] [place] [id number] 08/23/2018 Office Visit Dermatology Rachel Hill MD [address] [place] [address], [place] [address] [phone] 09/21/2018 Pharmacy Pharmacy [facility] [address] [facility] [place] [address] [phone] 09/26/2018 Nurse Only Gastroenterology Nurse [facility] [address] [phone] 12/19/2018 Office Visit Gynecology Obstetrics Irene Mujica CRNP [address] [facility] [place] [address] [phone] 06/18/2019 Office Visit Optometry Jarett Schmitt, OD [address] [place], [place] [id number] Health Maintenance Due Date Last Done Comments DIABETES-HGBA1C EVERY 6 MONTHS 08/15/2018 0 02/13/2018, 10/11/2017, 03/28/2017, Additional history exists DIABETES-FOOT EXAM 12/26/2018 12/26/2017, 0 03/22/2017, 06/07/2016, Additional history exists DIABETES-URINE MICROALBUMIN EVERY 12 MONTHS 02/06/2019 02/06/2018, 11/17/2017, 11/01/2017, Additional history exists Yearly B-12 02/13/2019 02/13/2018 [...] Visit Diagnoses Diagnosis Spinal stenosis of lumbar re gion without neurogenic claudication Spinal stenosis, lumbar region, without neurogenic claudication DDD (degenerative disc disea se), lumbar Degeneration of lumbar or lumbosacral intervertebral disc MEDICATION USE AGREEMENT in this encounter
--- OUTSIDE RECORDS SUMMARY | 2023-05-10 23:19 | External Medical Summary | Summary of Care ---
Author Name Unknown Organization [place] [address] Phone Care Team Providers Care Change Number Operator Name Role Phone Rajwinder Carter DO Primary Care Provider [phone] Reason for Visit * Reason Comments ADVICE Encounter Details Date Type Department Care Team Description 07/03/2018 Telephone [place] [address] [place] [address] Rajwinder Carter DO [address] [place] [address] [phone] ADVICE Allergies Active Allergy Reactions Severity Noted Date [...] bedtime 30 Each 3 10/11/2017 Active nystatin 571515 UNIT/GM creamIndications:Cand idal vulvovaginitis Apply topically to affected area 2 times a day. To affacted area for two weeks. 15 g 2 10/12/2017 Active Blood Glucose Monitoring Suppl (Stamp.itTOUCH VERIO) w/Device KITIndications:Type 2 diabetes mellitus with hemoglobin A1c goal of less than 7.0% (HCC) Use up to 4 times a day E11.9 1 Kit 0 10/17/2017 Active Glucose Blood (Stamp.itTOUCH VERIO) STRP Use up to four times [...] AT BEDTIME 30 Tab 0 06/04/2018 Active Hydrocodone-Acetamino phen 10-325 MG per tabletIndications:Spi nal stenosis of lumbar region without neurogenic claudication,DDD (degenerative disc disease), lumbar,MEDICATION USE AGREEMENT TAKE 1 TABLET TWICE DAILY NEEDED FOR PAIN 60 Tab 0 06/15/2018 Active as of this encounter Active Problems [...] pain 01/24/2012 01/17/2017 Genetic Sleep Disorder Research Other*[id number] 05/13/2011 04/07/2016 Obstructive sleep apnea 01/18/2011 12/27/19 [...] Telephone Encounter - Dominique Franco, THAD - 07/03/2018 9:23 AM EDT Patient called back in because she received a call from a 570 number that she tried to call on. I explained that our outbound lines would not take an inbound call. I called for Ann Doll at the number listed, but she was on the phone. The person who took the call from me, said she would have Ann call the patient back in a few minutes. Notified the patient. in this encounter Plan of Treatment Upcoming Encounters Date Type Specialty Care Team Description 07/16/2018 Nutrition Services Gastroenterology Melissa Omalley, [facility]THA [address] [facility] [address] [place] [address] [phone] 07/16/2018 Office Visit Gastroenterology Lyssa Stout CRNP [address] [place] [address] [phone] 08/07/2018 Office Visit Sleep Disorders Lanette Fields CRNP [address] [place] [address] [phone] , Nurse Sleep Disorders [address] [place] [address] [phone] 08/21/2018 Office Visit Family Medicine [facility]inder [facility] [address] [facility] [place] [address] [phone] 08/23/2018 Office Visit Dermatology Rachel Hill MD [address] [place] [address], [place] [address] [phone] 09/21/2018 Pharmacy Pharmacy [facility] [address] [facility] [address] [phone] 09/26/2018 Nurse Only Gastroenterology Nurse Anthony Fernandes 132 [facility] [place] [address] [phone] 12/19/2018 Office Visit Gynecology Obstetrics Irene Mujica CRNP 132 [facility] [place] [address] [phone] 06/18/2019 Office Visit Optometry Jarett Schmitt, OD [address] [place] [address] Health Maintenance Due Date Last [...]
--- OUTSIDE RECORDS SUMMARY | 2023-05-10 23:19 | External Medical Summary | Summary of Care ---
Author Name Unknown Organization [place] [address] Phone Care Team Providers Care Food And Beverage Assistant Name Role Phone Rajwinder Carter Primary Care Provider [phone] Encounter Details Date Type Department Care Team Description 06/16/2018 Result Scan Unspecified Department <No scans attached> [...] 7.0% ([facility]) Use with Lantus Solostar at bedtime 30 Each 3 10/11/2017 Active nystatin 189685 UNIT/GM creamIndications:Cand idal vulvovaginitis Apply topically to affected area 2 times a day. To affacted area for two weeks. 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 7 02/13/2018 Atypical chest pain 08/19/2016 01/17/2017 Depression with anxiety 08/19/2016 02/14/20 18 Hepatic cirrhosis (HCC) 08/19/2016 03/28/20 17 Polyuria 08/09/2016 01/17/2017 Urinary frequency 08/09/2016 01/17/2017 Generalized OA 06/14/2016 03/28/2017 Body mass index (BMI) of 45.0-49.9 in adult ([facility] ) 12/09/2015 01/17/2017 Overview: bmi= [...] > 40) ([facility]) 10/28/2013 01/17/2017 Overview: bmi= 53.93 [...] > 40) ([facility]) 05/25/2012 01/17/2017 Overview: BMI= 55.27 [...] stage III (GFR 30-59 ml /min) ([facility]) 01/24/2012 03/27/2012 Chronic pain 01/24/2012 01/17/2017 Genetic Sleep Disorder Research Other*[id number] 05/13/2011 04/07/2016 Obstructive sleep apnea 01/18/2011 12/27/19 [...] > 40) ([facility]) 12/08/2009 07/02/2014 Overview: Per Obesity [...] [address] [place] [place] [address] [phone] 07/16/2018 Office Visit Gastroenterology Lyssa Stout CRNP [address] [facility] [place] [address] [phone] 08/07/2018 Office Visit Sleep Disorders Lanette Fields CRNP [address] [facility] [place] [address] [phone] Nurse Kentrell Sleep Disorders [address] [facility] [place] [address] [phone] 08/21/2018 Office Visit Family Medicine Rajwinder Carter DO [address] [place] [address] [phone] 08/23/2018 Office Visit Dermatology Rachel Hill MD [address] [place] [address], [place] [address] [phone] 09/21/2018 Pharmacy Pharmacy [facility] [address] [facility] [place] [address] [phone] 09/26/2018 Nurse Only Gastroenterology Dom, [facility] [address] [address] [phone] 12/19/2018 Office Visit Gynecology Obstetrics Irene Mujica CRNP [address] [place] [address] [phone] 06/18/2019 Office Visit Optometry Oskar Jarett Lam, OD [address] [place] [address] Health Maintenance Due Date Last [...] Implants Not on fileas of this encounter Results * OUTSIDE LAB RESULTS (06/16/2018) in this encounter
--- OUTSIDE RECORDS SUMMARY | 2023-05-10 23:19 | External Medical Summary | Summary of Care ---
Author Name Unknown Organization [place] [address] Phone Care Team Providers Care Automotive Service Advisor Name Role Phone Rajwinder Carter DO Primary Care Provider [phone] Encounter Details Date Type Department Care Team Description 07/03/2018 Documentation HEALTH & WELLNESS Rajwinder Carter DO [address] [place] [address] [id number] Allergies Active Allergy Reactions Severity Noted Date [...] of less than 7.0% ([facility]) Use with Lantus Solostar at bedtime 30 Each 3 10/11/2017 Active nystatin 001676 UNIT/GM creamIndications:Cand idal vulvovaginitis Apply topically to affected area 2 times a day. To affacted area for two weeks. 15 g 2 10/12/2017 Active Blood Glucose Monitoring Suppl ([employer]) w/Device KITIndications:Type 2 diabetes mellitus with hemoglobin A1c goal of less than 7.0% (HCC) Use up to 4 times a day E11.9 1 Kit 0 10/17/2017 Active Glucose Blood ([employer] VERLightPath Apps) STRP Use up to four times a [...] Tab 05/18/2018 Active MetFORMIN (GLUCOPHAGE) 1000 MG TabletIndications:Typ [...] less than 7.0% ([facility]) Inject 24 units at bed [...] THAD on CPAP 12/26/2017 Cirrhosis of liver ([facility]) 11/20/2017 History of Clostridium difficile colitis 08/29/2017 Chronic pain syndrome 01/17/2017 MEDICATION USE AGREEMENT 01/17/2017 Overview: 01/17/17 Acquired hypothyroidism 12/12/2016 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 1 10/09/2015 Obesity, morbid (more than 100 lbs over ideal weight or BMI > 40) ([facility]) 02/09/2015 Restrictive lung disease 12/10/2014 Type 2 diabetes mellitus with hemoglobin A1c goal of less than 7.0% ([facility]) 09/26/2013 Overview: ICD-10 update of inactive term Vitamin D deficiency 09/26/2013 Lymphedema 03/11/2013 Intermittent asthma with reliever use up to twice per week 01/09/2013 Stasis dermatitis 05/07/2012 NG (nonalcoholic steatohepatitis) 04/12 HTN, goal below 140/90 03/27/2012 Chronic rhinitis 03/27/2012 Cerebral palsy ([facility]) 01/24/2012 Spinal stenosis of lumbar [...] of 50.0 to 59.9 in adult ( [facility]) 06/12/2017 12/19/2017 Overview: Per Obesity protocol #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 7 02/13/2018 Atypical chest pain 08/19/2016 01/17/2017 Depression with anxiety 08/19/2016 02/14/20 18 Hepatic cirrhosis ([facility]) 08/19/2016 03/28/20 17 Polyuria 08/09/2016 01/17/2017 Urinary frequency 08/09/2016 01/17/2017 Generalized OA 06/14/2016 03/28/2017 Body mass index (BMI) of 45.0-49.9 in adult ([facility] ) 12/09/2015 01/17/2017 Overview: bmi= [...] over ideal weight or BMI > 40) ([facility]) 10/28/2013 01/17/2017 Overview: bmi= 53.93 [...] over ideal weight or BMI > 40) ([facility]) 05/25/2012 01/17/2017 Overview: BMI= 55.27 [...] chronic, stage III (GFR 30-59 ml /min) ([facility]) 01/24/2012 03/27/2012 Chronic pain 01/24/2012 01/17/2017 Genetic Sleep Disorder Research Other*[id number] 05/13/2011 04/07/2016 Obstructive sleep apnea 01/18/2011 12/27/19 [...] over ideal weight or BMI > 40) ([facility]) 12/08/2009 07/02/2014 Overview: Per Obesity [...] Not on file as of this encounter Progress Notes * Ann Doll, THAD - 07/03/2018 9:11 AM EDT Received referral for positive food insecurity screening, Outreach to patient to confirm results. Unable to reach patient: Left message x 2, final attempt Ann Doll Medical Housekeeper [facility] [employer] in this encounter Plan of Treatment Upcoming Encounters Date Type Specialty Care Team Description 07/16/2018 Nutrition Services Gastroenterology Melissa Omalley, [place] [address] [place] [address] [place] [address] [phone] 07/16/2018 Office Visit Gastroenterology Lyssa Stout CRNP [address] [place] [address] [phone] 08/07/2018 Office Visit Sleep Disorders Lanette Fields CRNP [address] [place] [address] [phone] [place], Nurse Sleep Disorders [address] [place] [address] [phone] 08/21/2018 Office Visit Family Medicine Rajwinder Carter DO [address] [place] [address] [phone] 08/23/2018 Office Visit Dermatology Rachel Hill MD [address] [place] [address] [phone] 09/21/2018 Pharmacy Pharmacy [facility] [address] [place] [address] [phone] 09/26/2018 Nurse Only Gastroenterology Dom, G[facility] [address] [place] [address] [phone] 12/19/2018 Office Visit Gynecology Obstetrics Irene Mujica CRNP [address] [facility] [place] [address] [phone] 06/18/2019 Office Visit Optometry Jarett Schmitt, OD [address] [place] [address] Health Maintenance Due Date Last [...]
--- OUTSIDE RECORDS SUMMARY | 2023-05-10 23:19 | External Medical Summary | Summary of Care ---
Author Name Unknown Organization [place] [address] Phone Care Team Providers Care Hydrate Control Tender Name Role Phone Rajwinder Carter DO Primary Care Provider [phone] Encounter Details Date Type Department Care Team Description 07/03/2018 Documentation HEALTH & WELLNESS Rajwinder Carter DO [address] [id number] Allergies Active Allergy Reactions Severity Noted Date [...] than 7.0% ([facility]) Use with Lantus Solostar at bedtime 30 Each 3 10/11/2017 Active nystatin 845076 UNIT/GM creamIndications:Cand idal vulvovaginitis Apply topically to affected area 2 times a day. To affacted area for two weeks. 15 g 2 10/12/2017 Active Blood Glucose Monitoring Suppl (VastPark) w/Device KITIndications:Type 2 diabetes mellitus with hemoglobin A1c goal of less than 7.0% (HCC) Use up to 4 times a day E11.9 1 Kit 0 10/17/2017 Active Glucose Blood (Optimum Energy VERGoodzer) STRP Use up to four times a [...] than 7.0% ([facility]) Inject 1 syringeful once weekly 4 Pre-filled Pen Syringe Dosing Unit 5 05/18/2018 Active insulin glargine (LANTUS SOLOSTAR) 100 UNIT/ML SOPNIndications:Type 2 diabetes mellitus with hemoglobin A1c goal of less than 7.0% ([facility]) Inject 24 units at bed time 5 [...] THAD on CPAP 12/26/2017 Cirrhosis of liver ([facility]) 11/20/2017 History of Clostridium difficile colitis 08/29/2017 Chronic pain syndrome 01/17/2017 MEDICATION USE AGREEMENT 01/17/2017 Overview: 01/17/17 Acquired hypothyroidism 12/12/2016 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 1 10/09/2015 Obesity, morbid (more than 100 lbs over ideal weight or BMI > 40) ([facility]) 02/09/2015 Restrictive lung disease 12/10/2014 Type 2 diabetes mellitus with hemoglobin A1c goal of less than 7.0% ([facility]) 09/26/2013 Overview: ICD-10 update of inactive term Vitamin D deficiency 09/26/2013 Lymphedema 03/11/2013 Intermittent asthma with reliever use up to twice per week 01/09/2013 Stasis dermatitis 05/07/2012 NG (nonalcoholic steatohepatitis) 04/12 HTN, goal below 140/90 03/27/2012 Chronic rhinitis 03/27/2012 Cerebral palsy ([facility]) 01/24/2012 Spinal stenosis of lumbar region without [...] to 59.9 in adult ( [facility]) 06/12/2017 12/19/2017 Overview: Per Obesity protocol #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 7 02/13/2018 Atypical chest pain 08/19/2016 01/17/2017 Depression with anxiety 08/19/2016 02/14/20 18 Hepatic cirrhosis ([facility]) 08/19/2016 03/28/20 17 Polyuria 08/09/2016 01/17/2017 Urinary frequency 08/09/2016 01/17/2017 Generalized OA 06/14/2016 03/28/2017 Body mass index (BMI) of 45.0-49.9 in adult ([facility] ) 12/09/2015 01/17/2017 Overview: bmi= 48.04 12/09/15 [...] BMI > 40) ([facility]) 10/28/2013 01/17/2017 Overview: bmi= 53.93 10/28/13 Sleep [...] BMI > 40) ([facility]) 05/25/2012 01/17/2017 Overview: BMI= 55.27 05/25/12 Impacted [...] III (GFR 30-59 ml /min) ([facility]) 01/24/2012 03/27/2012 Chronic pain 01/24/2012 01/17/2017 Genetic Sleep Disorder Research Other*[id number] 05/13/2011 04/07/2016 Obstructive sleep apnea 01/18/2011 12/27/19 [...] BMI > 40) ([facility]) 12/08/2009 07/02/2014 Overview: Per Obesity Taxonomy ICD-10 [...] Notes * Ann Doll, THAD - 07/03/2018 9:28 AM EDT Received referral for positive food insecurity screening, Outreach to patient to confirm results. Pt indicates they are food insecure. Patient currently receiving SNAP benefits: No Patient resides in [facility]. Referred to: [email or web address] Ann Doll Medical Surfboard Maker [facility] in this encounter Plan of Treatment Upcoming Encounters Date Type Specialty Care Team Description 07/16/2018 Nutrition Services Gastroenterology Melissa Omalley RDN [address] [address] [phone] 07/16/2018 Office Visit Gastroenterology Lyssa Stout CRNP [address] [address] [phone] 08/07/2018 Office Visit Sleep Disorders Lanette Fields CRNP [address] [address] [phone] [place], Nurse Sleep Disorders [address] [address] [phone] 08/21/2018 Office Visit Family Medicine Rajwinder Carter, [address] [address] [phone] 08/23/2018 Office Visit Dermatology Rachel Hill MD [address] [place] [address], [place] [address] [phone] 09/21/2018 Pharmacy Pharmacy [address] [place] [address] [phone] 09/26/2018 Nurse Only Gastroenterology Dom, Gastro [facility]au [address] [place] [address] [phone] 12/19/2018 Office Visit Gynecology Obstetrics Irene Mujica CRNP [address] [place] [address] [phone] 06/18/2019 Office Visit Optometry Jarett Schmitt, OD [address] [place] [address] Health Maintenance Due Date Last [...]
--- OUTSIDE RECORDS SUMMARY | 2023-05-10 23:19 | External Medical Summary | Summary of Care ---
Author Name Unknown Organization [place] [address] Phone Care Team Providers Care Pharmacy Scheduler Name Role Phone Rajwinder Carter Primary Care Provider [phone] Reason for Visit * Reason Comments After Hours Call Encounter Details Date Type Department Care Team Description 06/16/2018 Telephone [place] [facility] [address] [facility] [address] [address] Chema Reed III, MD [address] [place] [address] [phone] After Hours Call Allergies Active Allergy Reactions Severity Noted [...] bedtime 30 Each 3 10/11/2017 Active nystatin 596541 UNIT/GM creamIndications:Cand idal vulvovaginitis Apply topically to affected area 2 times a day. To affacted area for two weeks. 15 g 2 10/12/2017 Active Blood Glucose Monitoring Suppl (Telepo VERIO) w/Device KITIndications:Type 2 diabetes mellitus with hemoglobin A1c goal of less than 7.0% (HCC) Use up to 4 times a day E11.9 1 Kit 0 10/17/2017 Active Glucose Blood (SuperbacTOUCH VERIO) STRP Use up to four times [...] than 7.0% ([facility]) Inject 1 syringeful once weekly 4 Pre-filled Pen Syringe Dosing Unit 5 05/18/2018 Active insulin glargine (LANTUS SOLOSTAR) 100 UNIT/ML SOPNIndications:Type 2 diabetes mellitus with hemoglobin A1c goal of less than 7.0% ([facility]) Inject 24 units at bed time [...] BMI > 40) ([facility]) 02/09/2015 Restrictive lung disease 12/10/2014 Type 2 diabetes mellitus with hemoglobin A1c goal of less than 7.0% ([facility]) 09/26/2013 Overview: ICD-10 update of inactive term Vitamin D deficiency 09/26/2013 Lymphedema 03/11/2013 Intermittent asthma with reliever use up to twice per week 01/09/2013 Stasis dermatitis 05/07/2012 NG (nonalcoholic steatohepatitis) 04/12 HTN, goal below 140/90 03/27/2012 Chronic rhinitis 03/27/2012 Cerebral palsy ([facility]) 01/24/2012 Spinal stenosis of lumbar region [...] of 50.0 to 59.9 in adult ( [facility]) 06/12/2017 12/19/2017 Overview: Per Obesity protocol #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 7 02/13/2018 Atypical chest pain 08/19/2016 01/17/2017 Depression with anxiety 08/19/2016 02/14/20 18 Hepatic cirrhosis ([facility]) 08/19/2016 03/28/20 17 Polyuria 08/09/2016 01/17/2017 Urinary frequency 08/09/2016 01/17/2017 Generalized OA 06/14/2016 03/28/2017 Body mass index (BMI) of 45.0-49.9 in adult ([facility] ) 12/09/2015 01/17/2017 Overview: bmi= 48.04 12/09/15 Need for shingles vaccine 12/09/20152015 Bilateral shoulder pain 08/25/2015 06/07/20 16 Bilateral shoulder pain 07/16/2015 06/07/20 16 Cerebral palsy ([facility]) 04/23/2015 03/28/2017 Candidal vulvovaginitis 02/12/2015 06/07/20 [...] BMI > 40) ([facility]) 10/28/2013 01/17/2017 Overview: bmi= 53.93 10/28/13 [...] BMI > 40) ([facility]) 05/25/2012 01/17/2017 Overview: BMI= 55.27 05/25/12 [...] chronic, stage III (GFR 30-59 ml /min) ([facility]) 01/24/2012 03/27/2012 Chronic pain 01/24/2012 01/17/2017 Genetic Sleep Disorder Research Other*[id number] 05/13/2011 04/07/2016 Obstructive sleep apnea 01/18/2011 12/27/19 [...] BMI > 40) ([facility]) 12/08/2009 07/02/2014 Overview: Per Obesity Taxonomy [...] Telephone Encounter - Rajwinder Carter DO - 06/18/2018 7:27 AM EDT Noted. * Telephone Encounter - Chema Reed III, MD - 06/16/2018 5:19 PM EDT Calling history of kidney stones has right-sided pain pain at its worse is a 10/10 in intensity wonders what she can do has seen Neurology in the past currently is on tamsulosin discussed would recommend ER visit pain control possible fluids stone study patient aware amenable to proceed to the emergency department in this encounter Plan of Treatment Upcoming Encounters Date Type Specialty Care Team Description 07/16/2018 Nutrition Services Gastroenterology Melissa Omalley RDN [facility] [address] [address] [phone] 07/16/2018 Office Visit Gastroenterology Lyssa Stout CRNP [address] [address] [phone] 08/07/2018 Office Visit Sleep Disorders Lanette Fields CRNP [address] [address] [phone] , Nurse Sleep Disorders [address] [address] [phone] 08/21/2018 Office Visit Family Medicine Rajwinder Carter DO [address] [place] [facility] [place] [address] [phone] 08/23/2018 Office Visit Dermatology Rachel Hill MD [address] [place] [address] [phone] 09/21/2018 Pharmacy Pharmacy [facility] [address] [facility] [place] [address] [phone] 09/26/2018 Nurse Only Gastroenterology Dom, Gastro [facility]au [address] [place] [address] [phone] 12/19/2018 Office Visit Gynecology Obstetrics Irene Mujica CRNP [address] [facility] [place] [address] [phone] 06/18/2019 Office Visit Optometry Jarett Schmitt, OD [address] [place] [address] Health Maintenance Due Date Last [...]
--- OUTSIDE RECORDS SUMMARY | 2023-05-10 23:19 | External Medical Summary | Summary of Care ---
Author Name Unknown Organization [place] [address] Phone Care Team Providers Care Space Systems Operations Craftsman Name Role Phone Rajwinder Carter DO Primary Care Provider [phone] Reason for Visit * Reason Comments MEDICATION REFILL pen needles Encounter Details Date Type Department Care Team Description 06/28/2018 Telephone [place] [address] [place] [address] Rajwinder Carter DO [address] [place] [address] [phone] MEDICATION REFILL (pen needles) Allergies Active Allergy Reactions Severity Noted Date [...] bedtime 30 Each 3 10/11/2017 Active nystatin 591406 UNIT/GM creamIndications:Cand idal vulvovaginitis Apply topically to affected area 2 times a day. To affacted area for two weeks. 15 g 2 10/12/2017 Active Blood Glucose Monitoring Suppl (Real GravityIO) w/Device KITIndications:Type 2 diabetes mellitus with hemoglobin A1c goal of less than 7.0% (HCC) Use up to 4 times a day E11.9 1 Kit 0 10/17/2017 Active Glucose Blood (Hello MusicTOUCH VERIO) STRP Use up to four times [...] less than 7.0% ([facility]) Inject 1 syringeful once weekly 4 Pre-filled Pen Syringe Dosing Unit 5 05/18/2018 Active insulin glargine (LANTUS SOLOSTAR) 100 UNIT/ML SOPNIndications:Type 2 diabetes mellitus with hemoglobin A1c goal of less than 7.0% ([facility]) Inject 24 units at bed time 5 [...] weight or BMI > 40) ([facility]) 02/09/2015 Restrictive lung disease 12/10/2014 Type 2 diabetes mellitus with hemoglobin A1c goal of less than 7.0% ([facility]) 09/26/2013 Overview: ICD-10 update of inactive term Vitamin D deficiency 09/26/2013 Lymphedema 03/11/2013 Intermittent asthma with reliever use up to twice per week 01/09/2013 Stasis dermatitis 05/07/2012 NG (nonalcoholic steatohepatitis) 04/12 HTN, goal below 140/90 03/27/2012 Chronic rhinitis 03/27/2012 Cerebral palsy ([facility]) 01/24/2012 Spinal stenosis of lumbar region without [...] to 59.9 in adult ( [facility]) 06/12/2017 12/19/2017 Overview: Per Obesity protocol #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 7 02/13/2018 Atypical chest pain 08/19/2016 01/17/2017 Depression with anxiety 08/19/2016 02/14/20 18 Hepatic cirrhosis ([facility]) 08/19/2016 03/28/20 17 Polyuria 08/09/2016 01/17/2017 Urinary frequency 08/09/2016 01/17/2017 Generalized OA 06/14/2016 03/28/2017 Body mass index (BMI) of 45.0-49.9 in adult ([facility] ) 12/09/2015 01/17/2017 Overview: bmi= 48.04 12/09/15 Need for shingles vaccine 12/09/20152015 Bilateral shoulder pain 08/25/2015 06/07/20 16 Bilateral shoulder pain 07/16/2015 06/07/20 16 Cerebral palsy ([facility]) 04/23/2015 03/28/2017 Candidal vulvovaginitis 02/12/2015 06/07/20 16 [...] weight or BMI > 40) ([facility]) 10/28/2013 01/17/2017 Overview: bmi= 53.93 10/28/13 Sleep [...] weight or BMI > 40) ([facility]) 05/25/2012 01/17/2017 Overview: BMI= 55.27 05/25/12 Impacted [...] III (GFR 30-59 ml /min) ([facility]) 01/24/2012 03/27/2012 Chronic pain 01/24/2012 01/17/2017 Genetic Sleep Disorder Research Other*[id number] 05/13/2011 04/07/2016 Obstructive sleep apnea 01/18/2011 12/27/19 [...] weight or BMI > 40) ([facility]) 12/08/2009 07/02/2014 Overview: Per Obesity Taxonomy ICD-10 [...] Miscellaneous Notes * Telephone Encounter - Vicki Armenta, print color operator - 06/28/2018 8:10 AM EDT [facility] Pharmacist called for refills for BD Pen needles. Advised rx was sent 03/12/2018 to [facility]. Pharmacist verbalized understanding and will [facility]. Thank You, Vicki Armenta [facility] R[facility] Night Refill Call Center 06/28/2018, 8:11 AM in this encounter Plan of Treatment Upcoming Encounters Date Type Specialty Care Team Description 07/16/2018 Nutrition Services Gastroenterology Melissa Omalley, [place] [address] [facility] [address] [address] [phone] 07/16/2018 Office Visit Gastroenterology Lyssa Stout CRNP [address] [address] [phone] 08/07/2018 Office Visit Sleep Disorders Lanette Fields CRNP [address] [address] [phone] Kentrell, Nurse Sleep Disorders [address] [address] [phone] 08/21/2018 Office Visit Family Medicine Rajwinder Carter DO [address] [place] [facility] [place] [address] [phone] 08/23/2018 Office Visit Dermatology Rachel Hill MD [address] [place] [address], [place] [address] [phone] 09/21/2018 Pharmacy Pharmacy [facility] [address] [place] [facility] [place] [address] [phone] 09/26/2018 Nurse Only Gastroenterology Dom, Nurse Anthony Ritchie [address] [place] [address] [phone] 12/19/2018 Office Visit Gynecology Obstetrics Irene Mujica CRNP [address] [place] [address] [phone] 06/18/2019 Office Visit Optometry Jarett Schmitt, OD [address] [place] [address] Health Maintenance Due Date Last [...]
--- OUTSIDE RECORDS SUMMARY | 2023-05-10 23:19 | External Medical Summary | Summary of Care ---
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 To affacted area for two weeks. 15 g 2 10/12/2017 Active Blood Glucose Monitoring Suppl ([employer]centrator VERIO) w/Device KITIndications:Type 2 diabetes mellitus with hemoglobin A1c goal of less than 7.0% (HCC) Use up to 4 times a day E11.9 1 Kit 0 10/17/2017 Active Glucose Blood (Volas EntertainmentTOUCH VERIO) STRP Use up to four [...] mouth daily. 30 Tab 5 05/18/2018 Active Hydrocodone-Acetamino phen 10-325 MG per tabletIndications:Spi nal stenosis of lumbar region without neurogenic claudication,DDD (degenerative disc disease), lumbar,MEDICATION USE AGREEMENT take 1 tablet by mouth twice a day if needed for pain 60 Tab 0 05/18/2018 Active levothyroxine (LEVOXYL) 150 MCG TabletIndications:Acq [...] of less than 7.0% ([facility]) Inject 1 syringeful once weekly 4 Pre-filled Pen Syringe Dosing Unit 5 05/18/2018 Active insulin glargine (LANTUS SOLOSTAR) 100 UNIT/ML SOPNIndications:Type 2 diabetes mellitus with hemoglobin A1c goal of less than 7.0% ([facility]) Inject 24 units at bed time 5 Pre-filled Pen Syringe Dosing Unit 3 05/18/2018 Active oxybutynin (DITROPAN) 5 MG Tablet Take 1 Tab by mouth 2 times a day. Through urology 60 Tab 5 05/29/2018 Active cyclobenzaprine (FLEXERIL) 10 MG Tablet TAKE 1 TABLET BY MOUTH AT BEDTIME 30 Tab 0 06/04/2018 Active as of this encounter Active Problems Problem Noted Date THAD on CPAP 12/26/2017 Cirrhosis of liver (HCC) 11/20/2017 History of Clostridium difficile colitis 08/29/2017 Chronic pain syndrome 01/17/2017 MEDICATION USE AGREEMENT 01/17/2017 Overview: 01/17/17 Acquired hypothyroidism 12/12/2016 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 1 10/09/2015 Obesity, morbid (more than 100 lbs over ideal weight or BMI > 40) ([facility]) 02/09/2015 Restrictive lung disease 12/10/2014 Type 2 diabetes mellitus with hemoglobin A1c goal of less than 7.0% ([facility]) 09/26/2013 Overview: ICD-10 update of inactive term Vitamin D deficiency 09/26/2013 Lymphedema 03/11/2013 Intermittent asthma with reliever use up to twice per week 01/09/2013 Stasis dermatitis 05/07/2012 NG (nonalcoholic steatohepatitis) 04/12 HTN, goal below 140/90 03/27/2012 Chronic rhinitis 03/27/2012 Cerebral palsy ([facility]) 01/24/2012 Spinal stenosis of lumbar region without [...] 50.0 to 59.9 in adult ( [facility]) 06/12/2017 12/19/2017 Overview: Per Obesity protocol #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 7 02/13/2018 Atypical chest pain 08/19/2016 01/17/2017 Depression with anxiety 08/19/2016 02/14/20 18 Hepatic cirrhosis ([facility]) 08/19/2016 03/28/20 17 Polyuria 08/09/2016 01/17/2017 Urinary frequency 08/09/2016 01/17/2017 Generalized OA 06/14/2016 03/28/2017 Body mass index (BMI) of 45.0-49.9 in adult ([facility] ) 12/09/2015 01/17/2017 Overview: bmi= 48.04 12/09/15 Need for shingles vaccine 12/09/20152015 Bilateral shoulder pain 08/25/2015 06/07/20 16 Bilateral shoulder pain 07/16/2015 06/07/20 16 Cerebral palsy ([facility]) 04/23/2015 03/28/2017 Candidal vulvovaginitis 02/12/2015 06/07/20 16 [...] or BMI > 40) ([facility]) 10/28/2013 01/17/2017 Overview: bmi= 53.93 10/28/13 Sleep [...] or BMI > 40) ([facility]) 05/25/2012 01/17/2017 Overview: BMI= 55.27 05/25/12 Impacted [...] stage III (GFR 30-59 ml /min) ([facility]) 01/24/2012 03/27/2012 Chronic pain 01/24/2012 01/17/2017 Genetic Sleep Disorder Research Other*[id number] 05/13/2011 04/07/2016 Obstructive sleep apnea 01/18/2011 12/27/19 [...] or BMI > 40) ([facility]) 12/08/2009 07/02/2014 Overview: Per Obesity Taxonomy ICD-10 [...] encounter Miscellaneous Notes * Telephone Encounter - aJnett Yee LPN - 06/13/2018 4:23 PM EDT Refused Prescriptions: Disp Refillscyclobenzaprine (FLEXERIL) 10 MG Tablet [P*30 Tab 0Sig: TAKE 1 TABLET BY MOUTH AT BEDTIMERefused By: JANETT YEE PReason for Refusal: Too soonReason for Refusal Comment: 06/04/18 new script was sent for 30 tabs. in this encounter Plan of Treatment Upcoming Encounters Date Type Specialty Care Team Description 07/16/2018 Nutrition Services Gastroenterology Melissa Omalley, [place] [address] [facility] [address] [address] 07/16/2018 Office Visit Gastroenterology Lyssa Stout CRNP [address] [facility] [place] [address] 08/07/2018 Office Visit Sleep Disorders Lanette Fields CRNP [address] [place] [address] [phone] Kent[place] Nurse Sleep Disorders [address] [facility] [address] [phone] 08/21/2018 Office Visit Family Medicine Rajwinder Carter, [address] [place] [facility] [place] [address] [phone] 08/23/2018 Office Visit Dermatology Rachel Hill MD [address] [place] [address] [place] [address] [phone] 09/21/2018 Pharmacy Pharmacy [facility] [address] [place] [address] [phone] 09/26/2018 Nurse Only Gastroenterology Nurse Dom G[facility] [address] [place] [address] [phone] 12/19/2018 Office Visit Gynecology Obstetrics Irene Mujica CRNP [address] [facility] [address] [phone] 06/18/2019 Office Visit Optometry Jarett Schmitt, OD [address] [place], [place] [id number] Health Maintenance Due Date Last Done Comments [...]
--- OUTSIDE RECORDS SUMMARY | 2023-05-10 23:19 | External Medical Summary | Summary of Care ---
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 To affacted area for two weeks. 15 g 2 10/12/2017 Active Blood Glucose Monitoring Suppl (WevodIO) w/Device KITIndications:Type 2 diabetes mellitus with hemoglobin A1c goal of less than 7.0% (HCC) Use up to 4 times a day E11.9 1 Kit 0 10/17/2017 Active Glucose Blood (VeriCenterTOUCH VERIO) STRP Use up to four times a day as directed.DX:E11. 9 400 Strip 3 12/04/2017 Active vitamin c (ASCORBIC ACID) 500 MG Tablet Take 500 mg by mouth daily. Active BD PEN NEEDLE MINI U/F 31G X 5 MMIndications:Type 2 diabetes mellitus with hemoglobin A1c goal of less than 7.0% ([facility]) Use with Basaglar at bedtime. 30 Each [...] of less than 7.0% ([facility]) Take 1 Tab by mouth 2 times [...] of less than 7.0% ([facility]) Inject 1 syringeful once weekly 4 Pre-filled Pen Syringe Dosing Unit 5 05/18/2018 Active insulin glargine (LANTUS SOLOSTAR) 100 UNIT/ML SOPNIndications:Type 2 diabetes mellitus with hemoglobin A1c goal of less than 7.0% ([facility]) Inject 24 units at bed time 5 [...] or BMI > 40) ([facility]) 02/09/2015 Restrictive lung disease 12/10/2014 Type 2 diabetes mellitus with hemoglobin A1c goal of less than 7.0% ([facility]) 09/26/2013 Overview: ICD-10 update of inactive term Vitamin D deficiency 09/26/2013 Lymphedema 03/11/2013 Intermittent asthma with reliever use up to twice per week 01/09/2013 Stasis dermatitis 05/07/2012 NG (nonalcoholic steatohepatitis) 04/12 HTN, goal below 140/90 03/27/2012 Chronic rhinitis 03/27/2012 Cerebral palsy ([facility]) 01/24/2012 Spinal stenosis of lumbar region without [...] to 59.9 in adult ( [facility]) 06/12/2017 12/19/2017 Overview: Per Obesity protocol #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 7 02/13/2018 Atypical chest pain 08/19/2016 01/17/2017 Depression with anxiety 08/19/2016 02/14/20 18 Hepatic cirrhosis ([facility]) 08/19/2016 03/28/20 17 Polyuria 08/09/2016 01/17/2017 Urinary frequency 08/09/2016 01/17/2017 Generalized OA 06/14/2016 03/28/2017 Body mass index (BMI) of 45.0-49.9 in adult ([facility] ) 12/09/2015 01/17/2017 Overview: bmi= 48.04 12/09/15 Need for shingles vaccine 12/09/20152015 Bilateral shoulder pain 08/25/2015 06/07/20 16 Bilateral shoulder pain 07/16/2015 06/07/20 16 Cerebral palsy ([facility]) 04/23/2015 03/28/2017 Candidal vulvovaginitis 02/12/2015 06/07/20 16 [...] or BMI > 40) ([facility]) 10/28/2013 01/17/2017 Overview: bmi= 53.93 10/28/13 Sleep [...] or BMI > 40) ([facility]) 05/25/2012 01/17/2017 Overview: BMI= 55.27 05/25/12 Impacted [...] III (GFR 30-59 ml /min) ([facility]) 01/24/2012 03/27/2012 Chronic pain 01/24/2012 01/17/2017 Genetic Sleep Disorder Research Other*[id number] 05/13/2011 04/07/2016 Obstructive sleep apnea 01/18/2011 12/27/19 [...] or BMI > 40) ([facility]) 12/08/2009 07/02/2014 Overview: Per Obesity Taxonomy ICD-10 [...] [address] [place] [address] [phone] 07/16/2018 Office Visit Gastroenterology Lyssa Stout CRNP [address] [place] [address] [phone] 08/07/2018 Office Visit Sleep Disorders Lanette Fields CRNP [address] [place] [address] [phone] Nurse [facility] [address] [place] [address] [phone] 08/21/2018 Office Visit Family Medicine Rajwinder Carter DO [address] [place] [address] [phone] 08/23/2018 Office Visit Dermatology Rachel Hill MD [address] [place] [address], [place] [address] [phone] 09/21/2018 Pharmacy Pharmacy [facility] [address] [place] [facility] [place] [address] [phone] 09/26/2018 Nurse Only Gastroenterology Nurse Anthony Fernandes [address] [place] [address] [phone] 12/19/2018 Office Visit Gynecology Obstetrics Irene Mujica CRNP [address] [facility] [address] [phone] 06/18/2019 Office Visit Optometry Jarett Schmitt, OD [address] [place] [address] Pending Results Name Priority Associated Diagnoses Date/Ti me CHEMISTRY-OUTSIDE Routine 06/16/2018 12:00 AM EDT Health Maintenance Due Date [...]
--- OUTSIDE RECORDS SUMMARY | 2023-05-10 23:19 | External Medical Summary | Summary of Care ---
Author Name Unknown Organization [place] [address] Phone Care Team Providers Care Transmission Worker Name Role Phone ArabellaRajwinder thacker Belen MORENO Primary Care Provider [phone] Reason for Visit * Reason Comments Dosage Adjustment In Person (Anticoag Cl inic) DIABETES FOLLOW-UP Encounter Details Date Type Department Care Team Description 06/13/2018 Pharmacy Pharmacy, [facility] [place] [address] [place] [address] [facility] [address] [place] [address] [phone] Type 2 diabetes mellitus with hemoglobin A1c goal of less than 7.0% ([facility])* Allergies Active Allergy Reactions Severity Noted Date [...] bedtime 30 Each 3 10/11/2017 Active nystatin 686635 UNIT/GM creamIndications:Cand idal vulvovaginitis Apply topically to affected area 2 times a day. To affacted area for two weeks. 15 g 2 10/12/2017 Active Blood Glucose Monitoring Suppl (LegUP) w/Device KITIndications:Type 2 diabetes mellitus with hemoglobin A1c goal of less than 7.0% (HCC) Use up to 4 times a day E11.9 1 Kit 0 10/17/2017 Active Glucose Blood (Mobiquity VERGlideTV) STRP Use up to four times a [...] 140/90 03/27/2012 Chronic rhinitis 03/27/2012 Cerebral palsy ([facility]) 01/24/2012 Spinal stenosis of lumbar region without [...] with anxiety 08/19/2016 02/14/20 18 Hepatic cirrhosis ([facility]) 08/19/2016 03/28/20 17 Polyuria 08/09/2016 01/17/2017 Urinary [...] pain 01/24/2012 01/17/2017 Genetic Sleep Disorder Research Other*[id number] 05/13/2011 04/07/2016 Obstructive sleep apnea 01/18/2011 12/27/19 [...] weight or BMI > 40) ([facility]) 12/08/2009 07/02/2014 Overview: Per Obesity Taxonomy ICD-10 [...] of this encounter Progress Notes * Shelli Osorio, [facility] - 06/13/2018 10:52 AM EDT Formatting of this note may be different from the original. Medication Therapy Disease Management Diabetes Interval History: Shaina Bustos is an 63 year old year old female returning to the [facility] for a diabetes follow-up appointment. Blood glucose control since last visit: stable Medication intolerance: no Medication compliance: compliant Hospitalization or ED Utilization since last visit: no Hypoglycemia requiring assistance since last visit: no Symptoms of hyperglycemia or hypoglycemia present today: no Diet: improved- no longer drinking soda Exercise: limited due to CP Current Diabetes Medications: Lantus 24 units daily Trulicity 1.5mg once weekly Metformin 1000mg twice daily Self-Monitoring Blood Glucose Review: Patient currently tests blood glucose 3 time(s) daily Pre AM meal Pre Lunch Pre PM meal Average 139 128 138 Hi 191 179 256 Lo 102 100 104 Range 89 79 152 Hypoglycemia: 1. Do you know what the symptoms of hypoglycemia are? Yes and No 2. How often can you tell by [...] Chronic pain syndrome G89.4 MEDICATION USE AGREEMENT [id number] History of Clostridium difficile colitis Z86.19 Cirrhosis of liver ([facility]) K74.60 THAD on CPAP G47.33, Z99.89 Review [...] midday, two in pm, 180 Cap 5 Hydrocodone-Acetaminophen 10-325 MG per tablet take 1 tablet by mouth twice a day if needed for pain 60 Tab 0 insulin glargine (LANTUS SOLOSTAR) 100 UNIT/ML SOPN [...] 500 mg by mouth daily. Glucose Blood (LegUP) STRP Use up to four times a day as directed.DX:E11.9 400 Strip 3 Blood Glucose Monitoring Suppl (LegUP) w/Device KIT Use up to 4 times a day E11.9 1 Kit 0 nystatin 967657 UNIT/GM cream Apply topically to affected area [...] 0 Objective: The ASCVD Risk score (Sami BROOKLYN Jr, et al., 2013) failed to calculate for the following reasons: The valid total cholesterol range is 130 to 320 mg/dL Estimated body mass index is 52.72 kg/(m^2) as calculated from the following: Height as of 04/11/18: 1.499 m (4' 11"). Weight as of 05/16/18: 118.4 kg (261 lb). BP Readings from Last 3 Encounters: 06/07/18 118/84 05/16/18 126/70 04/26/18 124/70 No POC orders found HEMOGLOBIN, A1C(%) Lucio Dt/Tm Resulted Value Status 02/13/18 3:27P 02/13/18 7.1* FINAL 10/11/17 1:18P 10/11/17 6.9* FINAL 03/28/17 3:31P 03/28/17 6.6* FINAL MICROALBUMIN RATIO(mg/g creat) Lucio Dt/Tm Resulted Value Status 02/03/17 9:58A 02/03/17 <15 FINAL 08/25/15 1:56P 08/25/15 27 FINAL 12/09/14 3:28P 12/09/14 7 FINAL BASIC METAB PANEL, [...] 10/11/17 1:18P 10/11/17 57 FINAL Assessment & Plan: Glycemic control is stable and seemingly at goal). Patient agreeable to continue medications as noted below. Patient is doing well in regards to her DM. She denies hypoglycemia and asks what the symptoms might be. Educated patient on "Rule of 15". Patient will treat hypoglycemia with 15 gms of carbs, wait 15 minutes and then retest BG. If BG is still low or patient is symptomatic she will retreat. No change in medications at this time Patient is agreeable to SMBG 4 time(s) daily. Patient aware to contact clinic if any hypoglycemia before next visit. Reviewed rule of 15s. Diabetes Medications: As above Diabetes Health Maintenance: up to date Return to clinic: 12 week(s) Next Office Visit: No Future Appointments Jo Faulkner RPh, Pharm D, CACP, CDE Clinical Pharmacist Medication Therapy Disease Management 06/13/2018, 10:52 AM in this encounter Plan of Treatment Upcoming Encounters Date Type Specialty Care Team Description 07/16/2018 Nutrition Services Gastroenterology Melissa Omalley RDN [address] [place] [address] 07/16/2018 Office Visit [facility]astroenterology [facility]out [facility] [address] [phone] 08/07/2018 Office Visit Sleep Disorders Lanette Fields CRNP 132 [facility] [place] [address] [phone] [place], Nurse Sleep Disorders 132 [facility] [place] [address] [phone] 08/21/2018 [facility] [address] [place] [address] [phone] 08/23/2018 Office Visit Dermatology Rachel Hill MD [address] [place] [address] [phone] 09/21/2018 Pharmacy Pharmacy [facility] [address] [place] [address] [phone] 09/26/2018 Nurse Only Gastroenterology Nurse Dom Gastro Chau [address] [facility] [place] [address] [phone] 12/19/2018 Office Visit Gynecology Obstetrics Irene Mujica CRNP [address] [facility] [place] [address] [phone] 06/18/2019 Office Visit Optometry Jarett Schmitt, OD [address] [place], [place] [id number] Health Maintenance Due Date Last Done Comments [...] Visit Diagnoses Diagnosis Type 2 diabetes mellitus wit h hemoglobin A1c goal of less than 7.0% (HCC) - Primary in this encounter
--- OUTSIDE RECORDS SUMMARY | 2023-05-10 23:19 | External Medical Summary | Summary of Care ---
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 To affacted area for two weeks. 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 7 02/13/2018 Atypical chest pain 08/19/2016 01/17/2017 Depression with anxiety 08/19/2016 02/14/20 18 Hepatic cirrhosis (HCC) 08/19/2016 03/28/20 17 Polyuria 08/09/2016 01/17/2017 Urinary frequency 08/09/2016 01/17/2017 Generalized OA 06/14/2016 03/28/2017 Body mass index (BMI) of 45.0-49.9 in adult ([facility] ) 12/09/2015 01/17/2017 Overview: bmi= 48.04 12/09/15 [...] or BMI > 40) ([facility]) 10/28/2013 01/17/2017 Overview: bmi= 53.93 10/28/13 Sleep [...] or BMI > 40) ([facility]) 05/25/2012 01/17/2017 Overview: BMI= 55.27 05/25/12 Impacted [...] III (GFR 30-59 ml /min) ([facility]) 01/24/2012 03/27/2012 Chronic pain 01/24/2012 01/17/2017 Genetic Sleep Disorder Research Other*[id number] 05/13/2011 04/07/2016 Obstructive sleep apnea 01/18/2011 12/27/19 [...] or BMI > 40) ([facility]) 12/08/2009 07/02/2014 Overview: Per Obesity Taxonomy ICD-10 [...] [address] [place] [address] [phone] 07/16/2018 Office Visit Gastroenterology Lyssa Stout CRNP 132 [facility] [place] [address] [phone] 08/07/2018 Office Visit Sleep Disorders Lanette Fields CRNP 132 [facility] [place] [address] [phone] Nurse Kentrell Sleep Disorders [address] [facility] [place] [address] [phone] 08/21/2018 Office Visit Family Medicine Rajwinder Carter DO [address] [place] [address] [phone] 08/23/2018 Office Visit Dermatology Rachel Hill MD [address] [place] [address], [place] [address] [phone] 09/21/2018 Pharmacy Pharmacy [facility] [address] [facility] [place] [address] [phone] 09/26/2018 Nurse Only Gastroenterology Dom, Gastro [facility] [address] [address] [phone] 12/19/2018 Office Visit Gynecology Obstetrics Irene Mujica CRNP [address] [place] [address] [phone] 06/18/2019 Office Visit Optometry Oskar Jarett Lam, OD [address] [place] [address] Health Maintenance Due Date Last [...]
--- OUTSIDE RECORDS SUMMARY | 2023-05-10 23:20 | External Medical Summary | Summary of Care ---
Author Name Unknown Organization [place] [address] Phone Care Team Providers Care Middle School Technology Teacher Name Role Phone Rajwinder Carter DO Primary Care Provider [phone] Reason for Visit * Reason Comments eRx-Medication Refill Encounter Details Date Type Department Care Team Description 06/04/[address] [address] Rajwinder Carter DO [facility] [place] [address] [phone] Allergies Active Allergy Reactions Severity Noted Date [...] bedtime 30 Each 3 10/11/2017 Active nystatin 090513 UNIT/GM creamIndications:Ca ndidal vulvovaginitis Apply topically to affected area 2 times a day. To affacted area for two weeks. 15 g 2 10/12/2017 Active Blood Glucose Monitoring Suppl ([employer] VERIO) w/Device KITIndications:Type 2 diabetes mellitus with hemoglobin A1c goal of less than 7.0% (HCC) Use up to 4 times a day E11.9 1 Kit 0 10/17/2017 Active Glucose Blood (SETTOUCH VERIO) STRP Use up to four times [...] mouth daily. 30 Tab 5 05/18/2018 Active Hydrocodone-Acetami nophen 10-325 MG per tabletIndications:S jennifer stenosis of lumbar region without neurogenic claudication,DDD (degenerative disc disease), lumbar,MEDICATION USE AGREEMENT take 1 tablet by mouth twice a day if needed for pain 60 Tab 0 05/18/2018 Active levothyroxine (LEVOXYL) 150 MCG TabletIndications:A [...] AT BEDTIME 30 Tab 0 06/04/2018 Active cyclobenzaprine (FLEXERIL) 10 MG Tablet Take 1 Tab by mouth at bedtime. 30 Tab 0 05/18/2018 06/04/20 18 Discontinued as of this encounter Active [...] shoulder pain 07/16/2015 06/07/20 16 Cerebral palsy ([facility]) 04/23/2015 03/28/2017 Candidal vulvovaginitis 02/12/2015 [...] pain 01/24/2012 01/17/2017 Genetic Sleep Disorder Research Other*[id number] 05/13/2011 04/07/2016 Obstructive sleep apnea 01/18/2011 12/27/19 [...] encounter Miscellaneous Notes * Telephone Encounter - Zulema Chan MD - 06/04/2018 3:43 PM EDT Signed Prescriptions: Disp Refills cyclobenzaprine (FLEXERIL) 10 MG Tablet 30 Tab 0 Sig: TAKE 1 TABLET BY MOUTH AT BEDTIME Authorizing Provider: ZULEMA CHAN * Telephone Encounter - Kike Fregoso LPN - 06/04/2018 1:42 PM EDT Pending Prescriptions: Disp Refills cyclobenzaprine (FLEXERIL) 10 MG Tablet [*30 Tab 0 Sig: TAKE 1 TABLET BY MOUTH AT BEDTIME * Telephone Encounter - Kike Fregoso, DEVAN - 06/04/2018 1:39 PM EDT Attempted to call patient, no answer, vm box not setup unable to leave a message. Pt was given 30 tablets on 05/18/18 one at HS. Pt should have 13 days left. * Telephone Encounter - Kike FregosoDEVAN - 06/04/2018 1:36 PM EDT Formatting of this note may be different from the original. Pending Prescriptions: Disp Refills cyclobenzaprine (FLEXERIL) 10 MG Tablet [*30 Tab 0 Sig: TAKE 1 TABLET BY MOUTH AT BEDTIME Last Office Visit: 05/16/2018 Next Office Visit: 08/21/2018 Scheduled Provider(s): Rajwinder Carter, DO If no future appointments scheduled, and last appointment is greater than a year ago, please schedule patient for a follow-up appointment Last date the medication was ordered: 05/18/18 Patient Phone Numbers Labs: Lab Results Component Value Date/Time CREAT 0.7 02/13/2018 03:27 PM POTASSIUM 4.2 02/13/2018 03:27 PM TSH 0.02 (L) 03/28/2018 04:20 PM LDLCALC 57 05/05/2016 10:19 AM LDLDIRECT 57 10/11/2017 01:18 PM ALT 26 02/13/2018 03:27 PM HGBA1C 7.1 (H) 02/13/2018 03:27 PM * Telephone Encounter - Susan Rosales RN - 06/04/2018 1:02 PM EDT Pending Prescriptions: Disp Refillscyclobenzaprine (FLEXERIL) 10 MG Tablet [*30 Tab 0Sig: TAKE 1 TABLET BY MOUTH AT BEDTIME in this encounter Plan of Treatment Upcoming Encounters Date Type Specialty Care Team Description 06/05/2018 Office Visit Family Medicine Confer, [place] Lucas-C [address] [place] [address] [phone] 06/11/2018 Office Visit [facility]astroenterology [facility]sa [facility]out CRNP [address] [facility] [address] [phone] 06/11/2018 Nutrition Services Gastroenterology Melissa Omalley, [place] [address] [place] [address] [phone] 06/13/2018 Pharmacy Pharmacy [facility] [address] [place] [address] [phone] 08/07/2018 Office Visit Sleep Disorders Lanette Fields CRNP [address] [facility] [address] [phone] Nurse [facility] [address] [facility] [address] [phone] 08/21/2018 Office Visit Family Medicine Rajwinder Carter DO [address] [place] [facility] [place] [address] [phone] 08/23/2018 Office Visit Dermatology Rachel Hill MD [address] [place] [address], [place] [address] [phone] 09/26/2018 Nurse Only Gastroenterology Dom, G[facility] [address] [facility] [place] [address] [phone] 12/19/2018 Office Visit Gynecology Obstetrics Irene Mujica CRNP [address] [facility] [place] [address] [phone] Health Maintenance Due Date Last Done Comments DIABETES-EYE EXAM 1973 Zoster Vaccines HMT (2 of 3) 02/03/2016 12/09/2015 DIABETES-HGBA1C EVERY 6 MONTHS 08/15/2018 02/13/2018, 10/11/2017, 03/28/2017, Additional history exists DIABETES-FOOT EXAM 12/26/2018 12/26/2017, 0 03/22/2017, 06/07/2016, Additional history exists DIABETES-URINE MICROALBUMIN EVERY 12 MONTHS 02/06/2019 02/06/2018, 11/17/2017, 11/01/2017, Additional history exists Yearly B-12 02/13/2019 02/13/2018 BREAST CANCER SCREENING DISCUSSION YEARLY AGES 40-75 04/04/2019 04/04/2018, 01/18/2017, 01/17/2017 (Discussed), Additional history exists PAP SMEAR-EVERY 3 YRS,AGES 21-65 10/10/2019 10/10/2016, 07/02/2014, 04/16/2013, Additional history exists DTaP,Tdap,and Td Vaccines (3 - Td) 05/01/2027 05/01/2017, 05/26/2008 PNEUMOCOCCAL 19-64 MEDIUM RISK Completed 06/01/2010 *ASTHMA ACTION PLAN-ADULT YEARLY Addressed 06/07/2016 (Discussed), 12/09/2014 Overridden with the intention of not completing the topic Influenza Vaccine (FLU shot) Completed 05/16/2018, 07/10/2017, 06/07/2016, Additional history exists as of this encounter Implants Not on fileas of this encounter
--- OUTSIDE RECORDS SUMMARY | 2023-05-10 23:20 | External Medical Summary | Summary of Care ---
Author Name Unknown Organization [place] [address] Phone Care Team Providers Care Counter Manager Name Role Phone Rajwinder Carter DO Primary Care Provider [phone] Reason for Visit * Reason Comments Encounter Created in Error Encounter Details Date Type Department Care Team Description 06/11/2018 Telephone [place] [address] [place] [address] Rajwinder Carter DO [address] [place] [address] [phone] Encounter Created in Error Allergies Active Allergy [...] bedtime 30 Each 3 10/11/2017 Active nystatin 514297 UNIT/GM creamIndications:Cand idal vulvovaginitis Apply topically to affected area 2 times a day. To affacted area for two weeks. 15 g 2 10/12/2017 Active Blood Glucose Monitoring Suppl (KSE VERIO) w/Device KITIndications:Type 2 diabetes mellitus with hemoglobin A1c goal of less than 7.0% (HCC) Use up to 4 times a day E11.9 1 Kit 0 10/17/2017 Active Glucose Blood (Thalmic LabsTOUCH VERIO) STRP Use up to four times [...] less than 7.0% ([facility]) Inject 1 syringeful once weekly 4 Pre-filled Pen Syringe Dosing Unit 5 05/18/2018 Active insulin glargine (LANTUS SOLOSTAR) 100 UNIT/ML SOPNIndications:Type 2 diabetes mellitus with hemoglobin A1c goal of less than 7.0% ([facility]) Inject 24 units at bed [...] or BMI > 40) ([facility]) 02/09/2015 Restrictive lung disease 12/10/2014 Type 2 diabetes mellitus with hemoglobin A1c goal of less than 7.0% ([facility]) 09/26/2013 Overview: ICD-10 update of inactive term Vitamin D deficiency 09/26/2013 Lymphedema 03/11/2013 Intermittent asthma with reliever use up to twice per week 01/09/2013 Stasis dermatitis 05/07/2012 NG (nonalcoholic steatohepatitis) 04/12 HTN, goal below 140/90 03/27/2012 Chronic rhinitis 03/27/2012 Cerebral palsy ([facility]) 01/24/2012 Spinal stenosis of lumbar [...] of 50.0 to 59.9 in adult ( [facility]) 06/12/2017 12/19/2017 Overview: Per Obesity protocol #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 7 02/13/2018 Atypical chest pain 08/19/2016 01/17/2017 Depression with anxiety 08/19/2016 02/14/20 18 Hepatic cirrhosis ([facility]) 08/19/2016 03/28/20 17 Polyuria 08/09/2016 01/17/2017 Urinary frequency 08/09/2016 01/17/2017 Generalized OA 06/14/2016 03/28/2017 Body mass index (BMI) of 45.0-49.9 in adult ([facility] ) 12/09/2015 01/17/2017 Overview: bmi= 48.04 12/09/15 Need for shingles vaccine 12/09/20152015 Bilateral shoulder pain 08/25/2015 06/07/20 16 Bilateral shoulder pain 07/16/2015 06/07/20 16 Cerebral palsy ([facility]) 04/23/2015 03/28/2017 Candidal vulvovaginitis 02/12/2015 [...] or BMI > 40) ([facility]) 10/28/2013 01/17/2017 Overview: bmi= 53.93 [...] or BMI > 40) ([facility]) 05/25/2012 01/17/2017 Overview: BMI= 55.27 [...] chronic, stage III (GFR 30-59 ml /min) ([facility]) 01/24/2012 03/27/2012 Chronic pain 01/24/2012 01/17/2017 Genetic Sleep Disorder Research Other*[id number] 05/13/2011 04/07/2016 Obstructive sleep apnea 01/18/2011 12/27/19 [...] or BMI > 40) ([facility]) 12/08/2009 07/02/2014 Overview: Per Obesity [...] Miscellaneous Notes * Telephone Encounter - Susan Scott OSA - 06/11/2018 12:15 PM EDT . in this encounter Plan of Treatment Upcoming Encounters Date Type Specialty Care Team Description 06/12/2018 Office Visit Optometry Jarett Schmitt, OD [address] [place] [address] [phone] 06/13/2018 Pharmacy Pharmacy [address] [address] [phone] 07/16/2018 Nutrition Services Gastroenterology Melissa Omalley RDN [address] [facility] [place] [address] [phone] 07/16/2018 Office Visit Gastroenterology Lyssa Stout CRNP [address] [facility] [place] [address] [phone] 08/07/2018 Office Visit Sleep Disorders Lanette Fields CRNP [address] [facility] [place] [address] [phone] [place], Nurse Sleep [facility] [address] [facility] [address] [phone] 08/21/2018 Office Visit Family Medicine Rajwinder Carter DO [address] [place] [address] [phone] 08/23/2018 Office Visit Dermatology Rachel Hill MD [address] [place] [address], [place] [address] [phone] 09/26/2018 Nurse Only Gastroenterology Dom, Gastro [facility] [address] [facility] [place] [address] [phone] 12/19/2018 Office Visit Gynecology Obstetrics Irene Mujica CRNP [address] [facility] [place] [address] [phone] Health Maintenance Due Date Last Done Comments DIABETES-EYE EXAM 1973 Zoster Vaccines HMT (2 of 3) 02/03/2016 12/09/2015 DIABETES-HGBA1C EVERY 6 MONTHS 08/15/2018 0 02/13/2018, [...]
--- OUTSIDE RECORDS SUMMARY | 2023-05-10 23:20 | External Medical Summary | Summary of Care ---
Author Name Unknown Organization [place] [address] Phone Care Team Providers Care A P Mechanic Name Role Phone Arabellakirstie Rajwinder Belen MORENO Primary Care Provider [phone] Reason for Referral * Evaluate & Treat - Unlimited Visits (Within 10 days (routine)) Status Reason Specialty Diagnoses / Procedures Referred By Contact Referred To Contact Pending Review Specialty Services Required Optometry Diagnoses DM type 2 nursing care encounter (HCC) Torrie Slaughter PA-C [address] [place] [address] Reason for Visit * Reason Comments COUGH Encounter Details Date Type Department Care Team Description 06/07/2018 Office Visit [place] [address] [place] [address] Torrie Slaughter PA-C [address] [place] [address] [phone] Dry cough*;DM type 2 nursing care encounter ([facility]) Allergies Active Allergy Reactions Severity [...] bedtime 30 Each 3 10/11/2017 Active nystatin 086870 UNIT/GM creamIndications:Cand idal vulvovaginitis Apply topically to affected area 2 times a day. To affacted area for two weeks. 15 g 2 10/12/2017 Active Blood Glucose Monitoring Suppl (Explorer.[email or web address]) w/Device KITIndications:Type 2 diabetes mellitus with hemoglobin A1c goal of less than 7.0% (HCC) Use up to 4 times a day E11.9 1 Kit 0 10/17/2017 Active Glucose Blood (YouTern VEROctoshape) STRP Use up to four times a [...] one midday, two in pm, 180 Cap 05/18/2018 Active Dulaglutide (TRULICITY) 1.5 MG/0.5ML SOPNIndications:Type [...] or BMI > 40) ([facility]) 02/09/2015 Restrictive lung disease 12/10/2014 Type 2 diabetes mellitus with hemoglobin A1c goal of less than 7.0% ([facility]) 09/26/2013 Overview: ICD-10 update of [...] of 50.0 to 59.9 in adult ( [facility]) 06/12/2017 12/19/2017 Overview: Per Obesity protocol #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 7 02/13/2018 Atypical chest pain 08/19/2016 01/17/2017 Depression with anxiety 08/19/2016 02/14/20 18 Hepatic cirrhosis (HCC) 08/19/2016 03/28/20 17 Polyuria 08/09/2016 01/17/2017 Urinary frequency 08/09/2016 01/17/2017 Generalized OA 06/14/2016 03/28/2017 Body mass index (BMI) of 45.0-49.9 in adult ([facility] ) 12/09/2015 01/17/2017 Overview: bmi= 48.04 12/09/15 Need for shingles vaccine 12/09/20152015 Bilateral shoulder pain 08/25/2015 06/07/20 16 Bilateral shoulder pain 07/16/2015 06/07/20 16 Cerebral palsy ([facility]) 04/23/2015 03/28/2017 Candidal vulvovaginitis 02/12/2015 [...] or BMI > 40) ([facility]) 10/28/2013 01/17/2017 Overview: bmi= 53.93 [...] or BMI > 40) ([facility]) 05/25/2012 01/17/2017 Overview: BMI= 55.27 [...] pain 01/24/2012 01/17/2017 Genetic Sleep Disorder Research Other*[id number] 05/13/2011 04/07/2016 Obstructive sleep apnea 01/18/2011 12/27/19 [...] Vital Sign Reading Time Taken Blood Pressure 118/84 06/07/2018 11:22 AM EDT Pulse 68 06/07/2018 11:22 AM EDT Temperature 36.8 C (98.3 F) 06/07/2018 1 1:22 AM EDT Respiratory Rate 18 06/07/2018 11:2 2 AM EDT Oxygen Saturation - - Inhaled Oxygen Concentration - - Weight - - Height - - Body Mass Index - - in this encounter Instructions * Patient Instructions - Shannan Bojorquez LPN - 06/07/2018 11:27 AM EDT Dear Shaina Bustos, The care of your Diabetes is very important to us. A yearly diabetic eye exam is important to protect your vision. Please tell your Eye Doctor to fax or mail us the results of your Diabetic Eye Exam at your next visit. Our Address and Fax Number are listed below to help. Thank you for helping us to improve your Diabetes Care Our Office Address and Fax Number: Rajwinder Carter DO [address] [address] in this encounter Progress Notes * Torrie Slaughter PA-C - 06/07/2018 11:54 AM EDT Formatting of this note may be different from the original. HPI: Shaina Bustos is a 63 year old female who presents to clinic today accompanied by her for evaluation of a dry cough over the last 2 weeks. Patient states that she does experience some postnasal drip and then has a dry cough. She is unable to bring the sputum up and typically swallows it. She has not taken any medications at home for fear of interaction with other medications. She thinks that she does take a daily antihistamine and Flonase nasal spray. She notes that Dr. Matute had previously given her some cough syrup with codeine and this seemed to work well for her. She does not have any of this at home currently. Patient has not had any fevers, chills, chest pain, shortness ofbreath, dizziness, lightheadedness, syncope, new peripheral edema, PND, orthopnea. The cough is worse 1st thing in the morning for her. It has not changed over the last 2 weeks. ROS: See HPI for positives and negatives. [...] Chronic pain syndrome G89.4 MEDICATION USE AGREEMENT [id number] History of Clostridium difficile colitis Z86.19 Cirrhosis of liver (HCC) K74.60 THAD on CPAP G47.33, Z99.89 Past Surgical History: Procedure Laterality Date DELIVERY 04/20/1982 COLONOSCOPY 04/21/09 repeat in 10 years COLONOSCOPY, DIAGNOSTIC (RECTUM) 10/04/2016 normal bx, repeat 10 yrs/[facility] DENTAL SURGERY PROCEDURE NEC wisdom teeth x 4 DILATION AND CURETTAGE (D&C) EGD, FLEXIBLE, DIAGNOSTIC 10/04/2016 gastritis/[facility] EGD, FLEXIBLE, DIAGNOSTIC 01/11/2018 eso varices, retained food, repeat 1 yr/[facility] PELVIS/HIP JOINT SURGERY NEC teenager [...] by mouth twice a day if needed forpain 60 Tab 0 insulin glargine (LANTUS SOLOSTAR) [...] 500 mg by mouth daily. Glucose Blood (BiocerosTOUCH VERIO) STRP Use up to four times a day as directed.DX:E11.9 400 Strip 3 Blood Glucose Monitoring Suppl (BiocerosTOUCH VERIO) w/Device KIT Use up to 4 times a day E11.9 1 Kit 0 nystatin 215375 UNIT/GM cream Apply topically to affected area [...] 1 0 Nursing Notes: Shannan Bojorquez LPN 06/07/18 1143 Signed Dry cough x 2 weeks. EXAM: BP 118/84 | Pulse 68 | Temp (Src) 98.3 (Tympanic) | Resp 18 | Wt (0.000kg) GENERAL: Patient is a 63-year-old female who is awake alert and oriented x3. She is chronically ill-appearing, but in no acute distress today. She is certainly nontoxic appearing. HEAD: Normocephalic, atraumatic EYES: PERRL, EOMI, Conjunctiva [...] to auscultation bilaterally, no wheezing, rales or rhonchi. Does have a mild dry coughthroughout the exam. ABDOMEN: abdomen soft, non-tender, normal bowel sounds and no masses or organomegaly SKIN: skin color, texture, turgor are normal NEURO: alert & oriented x 3 with fluent speech, no focal motor/sensory deficits, gait normal, reflexes normal and symmetric ASSESSMENT/PLAN R05 Dry cough (primary encounter diagnosis) E11.9 Dm type 2 nursing care encounter (formerly [facility]) Plan: Optometry (diabetes-extended) referral op I suspect that the patient's cough is likely related to allergies this time. Her vital signs are stable today and her lungs sound clear. I recommend that she continue with a daily antihistamine. She may use lebe-haq-xkkxjei Mucinex. I encouraged her strongly to use a Neti pot for sinus rinse. We discussed concerning signs and symptoms and if she develops any fevers, chills, productive cough, change in her sputum at all, she is to notify the office and we could consider Augmentin at that time. Recommend rest and hydration. Patient will follow for routine care or sooner p.r.n. Patient Instructions Dear Shaina Bustos, The care of your Diabetes is very important to us. A yearly diabetic eye exam is important to protect your vision. Please tell your Eye Doctor to fax or mail us the results of your Diabetic Eye Exam at your next visit. Our Address and Fax Number are listed below to help. Thank you for helping us to improve your Diabetes Care Our Office Address and Fax Number: Rajwinder Carter DO [facility] [address] [facility] [address] Torrie Slaughter PA-C [place] [address] [facility] [address] This chart was completed in part utilizing [employer] Speech Voice Recognition Software. Grammatical errors, random word insertions, prounoun errors, and incomplete sentences are an occasional consequence of this system due to software limitations, ambient noise, and hardware issues. Any formal questions or concerns about the content, text, or information contained within the body of this dictation should be directly addressed to the provider for clarification. * Shannan Bojorquez LPN - 06/07/2018 11:27 AM EDT The importance of having a yearly diabetic eye exam has been discussed with patient. Order and Referral placed along with patient instructions. Provider made aware. Shannan Bojorquez LPN in this encounter Nursing Notes * Shannan Bojorquez LPN - 06/07/2018 11:20 AM EDT Dry cough x 2 weeks. in this encounter Plan of Treatment Upcoming Encounters Date Type Specialty Care Team Description 06/11/2018 Office Visit Gastroenterology Lyssa Stout CRNP [address] [facility] [place] [address] 06/11/2018 Nutrition Services Gastroenterology Melissa Omalley RDN [address] [place] [address] [phone] 06/13/2018 Pharmacy Pharmacy [facility] [address] [place] [address] [phone] 08/07/2018 Office Visit Sleep Disorders Lanette Fields CRNP [address] [place] [address] [phone] [place] Nurse Sleep Disorders [address] [facility] [place] [address] [phone] 08/21/2018 Office Visit Family Medicine Rajwinder Carter, [address] [place] [address] [phone] 08/23/2018 Office Visit Dermatology Rachel Hill MD [address] [place] [address], [place] [address] [phone] 09/26/2018 Nurse Only Gastroenterology Nurse Dom Gastro [facility]au [address] [facility] [place] [address] [phone] 12/19/2018 Office Visit Gynecology Obstetrics Irene Mujica CRNP [address] [facility] [place] [address] [phone] Scheduled Referrals Name Priority Associated Diagnoses Order S chedule OPTOMETRY (DIABETES-EXTENDED) REFERRAL OP Within 10 days (routine) DM type 2 nursing care encounter (HCC) Ordered: 06/07/2018 Health Maintenance Due Date Last Done Comments [...] fileas of this encounter Visit Diagnoses Diagnosis Dry cough - Primary Cough DM type 2 nursing care enc nter ([facility]) Type II or unspecified type diabetes mellitus without mention of complication, not stated as uncontrolled in this encounter"
--- OUTSIDE RECORDS SUMMARY | 2023-05-10 23:20 | External Medical Summary | Summary of Care ---
Author Name Unknown Organization [place] [address] Phone Care Team Providers Care Safety Admin Assistant Name Role Phone Rajwinder Carter Primary Care Provider Encounter Details Date Type Department Care Team Description 06/04/2018 Scan Encounter Unspecified Department <No scans attached> [...] of less than 7.0% ([facility]) Use with Lantus Solostar at bedtime 30 Each 3 10/11/2017 Active nystatin 724270 UNIT/GM creamIndications:Cand idal vulvovaginitis Apply topically to affected area 2 times a day. To affacted area for two weeks. 15 g 2 10/12/2017 Active Blood Glucose Monitoring Suppl (ConteXtreamTOUCH VERIO) w/Device KITIndications:Type 2 diabetes mellitus with [...] by mouth daily. 30 Tab 05/18/2018 Active Hydrocodone-Acetamino phen 10-325 MG per [...] of less than 7.0% ([facility]) Inject 1 syringeful once weekly 4 Pre-filled Pen Syringe Dosing Unit 5 05/18/2018 Active insulin glargine (LANTUS SOLOSTAR) 100 UNIT/ML SOPNIndications:Type 2 diabetes mellitus with hemoglobin A1c goal of less than 7.0% ([facility]) Inject 24 units at bed time [...] weight or BMI > 40) ([facility]) 02/09/2015 Restrictive lung disease 12/10/2014 Type 2 diabetes mellitus with hemoglobin A1c goal of less than 7.0% ([facility]) 09/26/2013 Overview: ICD-10 update of inactive [...] 50.0 to 59.9 in adult ( [facility]) 06/12/2017 12/19/2017 Overview: Per Obesity protocol #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 7 02/13/2018 Atypical chest pain 08/19/2016 01/17/2017 Depression with anxiety 08/19/2016 02/14/20 18 Hepatic cirrhosis (HCC) 08/19/2016 03/28/20 17 Polyuria 08/09/2016 01/17/2017 Urinary frequency 08/09/2016 01/17/2017 Generalized OA 06/14/2016 03/28/2017 Body mass index (BMI) of 45.0-49.9 in adult ([facility] ) 12/09/2015 01/17/2017 Overview: bmi= 48.04 [...] weight or BMI > 40) ([facility]) 10/28/2013 01/17/2017 Overview: bmi= 53.93 10/28/13 [...] weight or BMI > 40) ([facility]) 05/25/2012 01/17/2017 Overview: BMI= 55.27 05/25/12 [...] pain 01/24/2012 01/17/2017 Genetic Sleep Disorder Research Other*[id number] 05/13/2011 04/07/2016 Obstructive sleep apnea 01/18/2011 12/27/19 [...] weight or BMI > 40) ([facility]) 12/08/2009 07/02/2014 Overview: Per Obesity Taxonomy [...] Team Description 06/05/2018 Office Visit Family Medicine Torrie Slaughter PA-C [address] [place] [address] [phone] 06/11/2018 Office Visit [facility]enterology [facility] [address] [facility] [address] [phone] 06/11/2018 Nutrition Services Gastroenterology Melissa Omalley, RDN [address] [place] [address] [phone] 06/13/2018 Pharmacy Pharmacy [facility] [address] [place] [address] [phone] 08/07/2018 Office Visit Sleep Disorders Lanette Fields CRNP [address] [facility] [place] [address] [phone] [place], Nurse Sleep Disorders [address] [facility] [place] [address] [phone] 08/21/2018 Office Visit Family Medicine Rajwinder Carter DO [address] [place] [facility] [place] [address] [phone] 08/23/2018 Office Visit Dermatology Rachel Hill MD [address] [place] [address], [place] [address] [phone] 09/26/2018 Nurse Only Gastroenterology Dom, Gastro Chau [address] [place] [address] [phone] 12/19/2018 Office Visit Gynecology Obstetrics Irene Mujica CRNP [address] [place] [address] [phone] Health Maintenance Due Date Last Done Comments [...]
--- OUTSIDE RECORDS SUMMARY | 2023-05-10 23:20 | External Medical Summary | Summary of Care ---
Author Name Unknown Organization [place] [address] Phone Care Team Providers Care Labor And Delivery Nurse Name Role Phone Rajwinder Carter DO Primary Care Provider [phone] Reason for Visit * Reason Comments Call Back Encounter Details Date Type Department Care Team Description 05/28/2018 Telephone [place] [address] [place] [address] Rajwinder Carter DO [address] [place] [address] [phone] Call Back Allergies Active Allergy Reactions Severity Noted Date [...] bedtime 30 Each 3 10/11/2017 Active nystatin 360743 UNIT/GM creamIndications:Ca ndidal vulvovaginitis Apply topically to affected area 2 times a day. To affacted area for two weeks. 15 g 2 10/12/2017 Active Blood Glucose Monitoring Suppl (TopicTOUCH VERIO) w/Device KITIndications:Type 2 diabetes mellitus with hemoglobin A1c goal of less than 7.0% (HCC) Use up to 4 times a day E11.9 1 Kit 0 10/17/2017 Active Glucose Blood (TopicTOUCH VERIO) STRP Use up to four times [...] of less than 7.0% ([facility]) Inject 1 syringeful once weekly 4 Pre-filled Pen Syringe Dosing Unit 5 05/18/2018 Active insulin glargine (LANTUS SOLOSTAR) 100 UNIT/ML SOPNIndications:Typ e 2 diabetes mellitus with hemoglobin A1c goal of less than 7.0% (HCC) Inject 24 units at bed time 5 Pre-filled Pen Syringe Dosing Unit 3 05/18/2018 Active cyclobenzaprine (FLEXERIL) 10 MG Tablet Take [...] weight or BMI > 40) ([facility]) 02/09/2015 Restrictive lung disease 12/10/2014 Type 2 diabetes mellitus with hemoglobin A1c goal of less than 7.0% ([facility]) 09/26/2013 Overview: ICD-10 update of inactive term Vitamin D deficiency 09/26/2013 Lymphedema 03/11/2013 Intermittent asthma with reliever use up to twice per week 01/09/2013 Stasis dermatitis 05/07/2012 NG (nonalcoholic steatohepatitis) 04/12 HTN, goal below 140/90 03/27/2012 Chronic rhinitis 03/27/2012 Cerebral palsy ([facility]) 01/24/2012 Spinal stenosis of lumbar region without [...] to 59.9 in adult ( [facility]) 06/12/2017 12/19/2017 Overview: Per Obesity protocol #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 7 02/13/2018 Atypical chest pain 08/19/2016 01/17/2017 Depression with anxiety 08/19/2016 02/14/20 18 Hepatic cirrhosis ([facility]) 08/19/2016 03/28/20 17 Polyuria 08/09/2016 01/17/2017 Urinary frequency 08/09/2016 01/17/2017 Generalized OA 06/14/2016 03/28/2017 Body mass index (BMI) of 45.0-49.9 in adult ([facility] ) 12/09/2015 01/17/2017 Overview: bmi= 48.04 12/09/15 Need for shingles vaccine 12/09/20152015 Bilateral shoulder pain 08/25/2015 06/07/20 16 Bilateral shoulder pain 07/16/2015 06/07/20 16 Cerebral palsy ([facility]) 04/23/2015 03/28/2017 Candidal vulvovaginitis 02/12/2015 06/07/20 16 [...] weight or BMI > 40) ([facility]) 10/28/2013 01/17/2017 Overview: bmi= 53.93 10/28/13 Sleep [...] weight or BMI > 40) ([facility]) 05/25/2012 01/17/2017 Overview: BMI= 55.27 05/25/12 Impacted [...] pain 01/24/2012 01/17/2017 Genetic Sleep Disorder Research Other*[id number] 05/13/2011 04/07/2016 Obstructive sleep apnea 01/18/2011 12/27/19 [...] Telephone Encounter - Susan Rosales RN - 06/05/2018 9:25 AM EDT Signed order and DME faxed to [facility] * Telephone Encounter - Rajwinder Carter DO - 06/04/2018 5:42 PM EDT Order signed. In Team 2 bin. * Telephone Encounter - Susan Rosales RN - 06/04/2018 3:37 PM EDT See messages below about the compression machine OK to do DME? * Telephone Encounter - Shannan Bowser OSA - 06/04/2018 2:25 PM EDT Patient calling in to check on the status of previous message. * Telephone Encounter - Dinorah Lowry LPN - 05/30/2018 2:43 PM EDT Calling again, asking about the message below. Please advise. * Telephone Encounter - Susan Rsoales RN - 05/28/2018 2:25 PM EDT Called Channing Smith works for [employer] They do leg compression machines they take care of insurance just need faxed to them a demographic and an order for leg compression Do you still want to order? In another message I called both [facility] and [facility] and they do not carry the machine, so I spoke to patient and she called in with this number * Telephone Encounter - Shelly Hirsch LPN - 05/28/2018 12:10 PM EDT Patient is calling She is trying to get a leg compression machine. She wants a call back. channing smith [phone] is the rental representative that somebody can talk to about it. in this encounter Plan of Treatment Upcoming Encounters Date Type Specialty Care Team Description 06/05/2018 Office Visit Family Medicine Torrie Slaughter PA-C [address] [place] [facility] [place] [address] [phone] 06/11/2018 Office Visit [facility]astroenterology [facility] [address] [facility] [address] [phone] 06/11/2018 Nutrition Services Gastroenterology Melissa Omalley, RDN [address] [place] [address] [place] [address] [phone] 06/13/2018 Pharmacy Pharmacy [facility] [address] [place] [address] [phone] 08/07/2018 Office Visit Sleep Disorders Lanette Fields CRNP [address] [facility] [place] [address] [phone] Nurse [facility] [address] [facility] [place] [address] [phone] 08/21/2018 Office Visit Family Medicine Rajwinder Carter DO [address] [facility] [address] [phone] 08/23/2018 Office Visit Dermatology Rachel Hill MD [address] [place] [address], [place] [address] [phone] 09/26/2018 Nurse Only Gastroenterology Nurse Anthony Fernandes [address] [facility] [place] [address] [phone] 12/19/2018 Office Visit Gynecology Obstetrics Irene Mujica CRNP [address] [place] [address] [phone] Health Maintenance Due Date Last Done Comments [...] fileas of this encounter Visit Diagnoses Diagnosis Localized edema - Primary Edema in this encounter
--- OUTSIDE RECORDS SUMMARY | 2023-05-10 23:20 | External Medical Summary | Summary of Care ---
Author Name Unknown Organization [place] [address] Phone Care Team Providers Care Sweat Box Attendant Name Role Phone ArabellaRajwinder thacker Primary Care Provider Reason for Visit * Reason Comments Diabetic Exam type 2, treated with in trulicity, metformin, and insulin, last a1c 7.1% on 02/13/2018, no change in vision noted. 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 To affacted area for two weeks. 15 g 2 10/12/2017 Active Blood Glucose Monitoring Suppl (Photoblog) w/Device KITIndications:Type 2 diabetes mellitus with hemoglobin A1c goal of less than 7.0% (HCC) Use up to 4 times a day E11.9 1 Kit 0 10/17/2017 Active Glucose Blood (Qumas VERWritePath) STRP Use up to four times a [...] or BMI > 40) ([facility]) 02/09/2015 Restrictive lung disease 12/10/2014 Type 2 diabetes mellitus with hemoglobin A1c goal of less than 7.0% ([facility]) 09/26/2013 Overview: ICD-10 update of inactive term Vitamin D deficiency 09/26/2013 Lymphedema 03/11/2013 Intermittent asthma with reliever use up to twice per week 01/09/2013 Stasis dermatitis 05/07/2012 NG (nonalcoholic steatohepatitis) 04/12 HTN, goal below 140/90 03/27/2012 Chronic rhinitis 03/27/2012 Cerebral palsy ([facility]) 01/24/2012 Spinal stenosis of lumbar region without [...] 50.0 to 59.9 in adult ( [facility]) 06/12/2017 12/19/2017 Overview: Per Obesity protocol #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 7 02/13/2018 Atypical chest pain 08/19/2016 01/17/2017 Depression with anxiety 08/19/2016 02/14/20 18 Hepatic cirrhosis ([facility]) 08/19/2016 03/28/20 17 Polyuria 08/09/2016 01/17/2017 Urinary frequency 08/09/2016 01/17/2017 Generalized OA 06/14/2016 03/28/2017 Body mass index (BMI) of 45.0-49.9 in adult ([facility] ) 12/09/2015 01/17/2017 Overview: bmi= 48.04 12/09/15 Need for shingles vaccine 12/09/20152015 Bilateral shoulder pain 08/25/2015 06/07/20 16 Bilateral shoulder pain 07/16/2015 06/07/20 16 Cerebral palsy ([facility]) 04/23/2015 03/28/2017 Candidal vulvovaginitis 02/12/2015 06/07/20 16 [...] or BMI > 40) ([facility]) 10/28/2013 01/17/2017 Overview: bmi= 53.93 10/28/13 Sleep [...] or BMI > 40) ([facility]) 05/25/2012 01/17/2017 Overview: BMI= 55.27 05/25/12 Impacted [...] stage III (GFR 30-59 ml /min) ([facility]) 01/24/2012 03/27/2012 Chronic pain 01/24/2012 01/17/2017 Genetic Sleep Disorder Research Other*[id number] 05/13/2011 04/07/2016 Obstructive sleep apnea 01/18/2011 12/27/19 [...] or BMI > 40) ([facility]) 12/08/2009 07/02/2014 Overview: Per Obesity Taxonomy ICD-10 [...] as of this encounter Progress Notes * Jarett Baldwin, OD - 06/12/2018 4:49 PM EDT Formatting of this note may be different from the original. 06/12/18 HPI: Diabetic Exam (type 2, [facility], metformin, and insulin, last a1c 7.1% on 02/13/2018, no change in vision noted.) Reviewed past medical, family, and social history at today's visit. Reviewed nursing notes from today's visit. Medical Hx: Past Medical History: Diagnosis Date Chronic pain 03/27/2012 DDD (degenerative disc disease), lumbar DM type 2, goal A1c below 7 Dyslipidemia, goal LDL below 70 Hypothyroidism 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 12/27/2010 MEDICATION USE AGREEMENT 03/27/2012 03/27/12 Myalgia and myositis 03/27/2012 NG (nonalcoholic steatohepatitis) 05/02/2012 Other specified infantile cerebral palsy Restrictive lung disease 12/2014 Sleep apnea CPAP Sleep disturbance 01/24/2012 HEMOGLOBIN, A1C(%) Lucio Dt/Tm Resulted Value Status 02/13/18 3:27P 02/13/18 7.1* FINAL 10/11/17 1:18P 10/11/17 6.9* FINAL 03/28/17 3:31P 03/28/17 6.6* FINAL DM Meds: trulicity, metformin, insulin Family Hx: (-) Glaucoma, (-) AMD Past ocular history: glasses, eye turn - patient reports strab surgery Ocular meds: None CT: CAXT Final Rx: Glasses Prescription Sphere Cylinder [place] Add Right [place] -0.25 010 +2.50 Left +1.25 +2.50 Type: Bifocal Expiration Date: 06/12/2020 BCVA: OD: 20/30- OS: 20/30- Diagnosis & Plan: (E11.9) 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 Importance of good blood sugar control discussed in detail with patient. Importance of yearly dilated eye exams also discussed with regards to diabetes Dx. Correspondence sent to PCP. Monitor 1 year with comprehensive dilated exams. Follow up in 1 year or PRN Jarett Baldwin, OD in this encounter Nursing Notes * Shlomo Li, MINI - 06/12/2018 1:25 PM EDT Shaina Fariasel is a 63 year old female REFERRED BY : pcp Last eye exam 2017 by [facility] in [facility] CHIEF COMPLAINT: Diabetes and Periodic comprehensive eye examination HISTORY OF PRESENT ILLNESS: Has there been any changes in your vision or eye health since your last visit Yes, distance vision is blurry , hard time watching tv. Are you seeing any new flashes of light or floaters?No Are your eyes chronically- Watery/Tearing Are you having any pain in or around your eyes? No Are you diabetic? Yes,How long have you been Diabetic? 1 year Do you check your sugar daily? YES. Fasting BS this mornin mg/dl. Last Hemoglobin A1C: HEMOGLOBIN, A1C(%) Lucio Dt/Tm Resulted Value Low High Status 02/13/18 3:27P 02/13/18 7.1* 4.0 6.4 FINAL CURRENT EYE MEDICATIONS None COMPREHENSIVE OCULAR HISTORY Do you or anyone in your family have a history of: -Macular Degeneration- No -Glaucoma/Pressure in the Eye- No -Diabetes- Self and Family -Eye problems related to Diabetes- No -High Blood Pressure- Self and Family -Heart Disease- Family -Thyroid Disease- Family -Blindness- No Have you ever had any surgery on or around your eyes? No Have you ever had an injury to your eyes? No Have you ever had a serious infection in your eyes that needed treatment? no VISUAL ACUITY/TONOMETRY/GLASS RX: See Eye EXAM in this encounter Plan of Treatment Upcoming Encounters Date Type Specialty Care Team Description 06/13/2018 Pharmacy Pharmacy [facility] [address] [place] [address] [phone] 07/16/2018 Nutrition Services Gastroenterology Melissa Omalley RDN [address] [place] [address] [phone] 07/16/2018 Office Visit Gastroenterology [facility] [address] [facility] [address] [phone] 08/07/2018 Office Visit Sleep Disorders Lanette Fields [facility] [address] [facility] [address] [phone] Nurse [facility] [address] [facility] [place] [address] [phone] 08/21/2018 Office Visit Family Medicine Rajwinder Carter DO [address] [place] [facility] [place] [address] [phone] 08/23/2018 Office Visit Dermatology Rachel Hill MD [address] [place] [address] [phone] 09/26/2018 Nurse Only Gastroenterology Nurse Dom Gastro Chau [address] [place] [address] [phone] 12/19/2018 Office Visit Gynecology Obstetrics Irene Mujica CRNP [address] [facility], [place] [address] [phone] 06/18/2019 Office Visit Optometry Jarett Baldwin, OD [address] [place] [address] [phone] Health Maintenance Due Date Last Done Comments DIABETES-EYE EXAM 1973 DIABETES-HGBA1C EVERY 6 MONTHS 08/15/2018 0 02/13/2018, [...] fileas of this encounter Visit Diagnoses Diagnosis Diabetes mellitus without op hthalmic manifestations (HCC) - Primary Type II or unspecified type diabetes mellitus without mention of complication, not stated as uncontrolled in this encounter
--- OUTSIDE RECORDS SUMMARY | 2023-05-10 23:20 | External Medical Summary | Summary of Care ---
Author Name Unknown Organization [place] [address] Phone Care Team Providers Care Boat Driver Name Role Phone ArabellaRajwinder thacker Primary Care Provider [phone] Reason for Visit * Reason Comments Diabetic Exam type 2, treated with in Encounter Details Date Type Department Care Team Description 06/12/2018 Office Visit Optometry, [place] [address] [place] [address] Jarett Baldwin, XU [address] [place] [address] Diabetes mellitus without ophthalmic manifestations [...] bedtime 30 Each 3 10/11/2017 Active nystatin 258053 UNIT/GM creamIndications:Cand idal vulvovaginitis Apply topically to affected area 2 times a day. To affacted area for two weeks. 15 g 2 10/12/2017 Active Blood Glucose Monitoring Suppl (TUNJI VERIO) w/Device KITIndications:Type 2 diabetes mellitus with hemoglobin A1c goal of less than 7.0% (HCC) Use up to 4 times a day E11.9 1 Kit 0 10/17/2017 Active Glucose Blood (Brian IndustriesTOUCH VERIO) STRP Use up to four times [...] 7.0% ([facility]) Inject 1 syringeful once weekly [...] weight or BMI > 40) ([facility]) 02/09/2015 Restrictive lung disease 12/10/2014 Type 2 diabetes mellitus with hemoglobin A1c goal of less than 7.0% ([facility]) 09/26/2013 Overview: ICD-10 update of inactive term Vitamin D deficiency 09/26/2013 Lymphedema 03/11/2013 Intermittent asthma with reliever use up to twice per week 01/09/2013 Stasis dermatitis 05/07/2012 NG (nonalcoholic steatohepatitis) 04/12 HTN, goal below 140/90 03/27/2012 Chronic rhinitis 03/27/2012 Cerebral palsy ([facility]) 01/24/2012 Spinal stenosis of lumbar [...] to 59.9 in adult ( [facility]) 06/12/2017 12/19/2017 Overview: Per Obesity protocol #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 7 02/13/2018 Atypical chest pain 08/19/2016 01/17/2017 Depression with anxiety 08/19/2016 02/14/20 18 Hepatic cirrhosis ([facility]) 08/19/2016 03/28/20 17 Polyuria 08/09/2016 01/17/2017 Urinary frequency 08/09/2016 01/17/2017 Generalized OA 06/14/2016 03/28/2017 Body mass index (BMI) of 45.0-49.9 in adult ([facility] ) 12/09/2015 01/17/2017 Overview: bmi= 48.04 12/09/15 Need for shingles vaccine 12/09/20152015 Bilateral shoulder pain 08/25/2015 06/07/20 16 Bilateral shoulder pain 07/16/2015 06/07/20 16 Cerebral palsy ([facility]) 04/23/2015 03/28/2017 Candidal vulvovaginitis 02/12/2015 [...] weight or BMI > 40) ([facility]) 10/28/2013 01/17/2017 Overview: bmi= 53.93 [...] weight or BMI > 40) ([facility]) 05/25/2012 01/17/2017 Overview: BMI= 55.27 [...] III (GFR 30-59 ml /min) ([facility]) 01/24/2012 03/27/2012 Chronic pain 01/24/2012 01/17/2017 Genetic Sleep Disorder Research Other*[id number] 05/13/2011 04/07/2016 Obstructive sleep apnea 01/18/2011 12/27/19 [...] weight or BMI > 40) ([facility]) 12/08/2009 07/02/2014 Overview: Per Obesity [...] be different from the original. 06/12/18 HPI: Eye Exam Reviewed past medical, family, and social history [...] 7.1* FINAL 10/11/17 1:18P 10/11/17 6.9* FINAL 7/18/17 3:31P 03/28/17 6.6* FINAL DM Meds: trulicity, metformin, insulin Family Hx: (-) Glaucoma, (-) AMD Past ocular history: glasses, eye turn - patient reports strab surgery Ocular meds: None CT: CAXT Final Rx: Glasses Prescription Sphere Cylinder [place] Add Right Topmost -0.25 010 +2.50 Left +1.25 +2.50 Type: [...] exams. Follow up in 1 year or PRShae Baldwin OD in this encounter Nursing Notes * Shlomo Li TECH - 06/12/2018 1:25 PM EDT Shaina Bustos is a 63 year old female REFERRED BY : pcp Last eye exam 2017 by [facility] in [facility] CHIEF COMPLAINT: Diabetes and Periodic comprehensive eye [...] Specialty Care Team Description 06/13/2018 Pharmacy Pharmacy [facility] [address] [place] [address] [phone] 07/16/2018 Nutrition Services Gastroenterology Melissa Omalley RDN [address] [place] [address] [place] [address] [phone] 07/16/2018 Office Visit [facility]enterology [facility] [address] [phone] 08/07/2018 Office Visit Sleep Disorders Lanette Fields CRNP [address] [place] [address] [phone] Nurse [facility] [address] [place] [address] [phone] 08/21/2018 Office Visit Family Medicine Rajwinder Carter DO [address] [place] [facility] [place] [address] [phone] 08/23/2018 Office Visit Dermatology Rachel Hill MD [address] [place] [address] [phone] 09/26/2018 Nurse Only Gastroenterology Nurse [facility] [address] [facility] [place] [address] [phone] 12/19/2018 Office Visit Gynecology Obstetrics Irene Mujica CRNP [address] [place] [address] [phone] 06/18/2019 Office Visit Optometry Jarett Baldwin, OD [address] [place] [address] [phone] Health Maintenance Due Date Last Done Comments [...]
--- OUTSIDE RECORDS SUMMARY | 2023-05-10 23:20 | External Medical Summary | Summary of Care ---
Author Name Unknown Organization [place] [address] Phone Care Team Providers Care Project Engineer Name Role Phone Rajwinder Carter DO Primary Care Provider [phone] Reason for Visit * Reason Comments RECHECK MEDICATION ADMINISTRATION Flu and/or Pne umo Inj Encounter Details Date Type Department Care Team Description 05/16/2018 Office Visit [place] [facility] [address] [place] [address] Rajwinder Carter DO [address] [place] [address] [phone] Spinal stenosis of lumbar region without neurogenic claudication*;DDD (degenerative disc disease), lumbar;MEDICATION USE AGREEMENT;Acquired hypothyroidism;Sleep disturbances;Hypokalemia ;Type 2 diabetes mellitus with hemoglobin A1c goal of less than 7.0% ([facility]);Dyslipidemia, goal LDL below 70;Localized edema;Venous stasis dermatitis of both lower extremities;Allergic conjunctivitis of both eyes Allergies Active Allergy Reactions Severity Noted Date [...] bedtime 30 Each 3 10/11/2017 Active nystatin 446903 UNIT/GM creamIndications:Ca ndidal vulvovaginitis Apply topically to affected area 2 times a day. To affacted area for two weeks. 15 g 2 10/12/2017 Active Blood Glucose Monitoring Suppl ([employer]) w/Device KITIndications:Type 2 diabetes mellitus with hemoglobin A1c goal of less than 7.0% (HCC) Use up to 4 times a day E11.9 1 Kit 0 10/17/2017 Active Glucose Blood ([employer]) STRP Use up to four times a [...] edema 30 Tab 5 05/18/2018 Active fexofenadine (TERESA) 180 MG TabletIndications:A llergic conjunctivitis of both [...] mouth daily. 30 Tab 5 05/18/2018 Active furosemide (LASIX) 20 MG TabletIndications:E abelardo,Stasis dermatitis One pill by mouth once a day, as needed for edema 30 Tab 5 07/19/2017 05/18/20 18 Discontinued fexofenadine (TERESA) 180 MG TabletIndications:A llergic conjunctivitis of both eyes,Allergic rhinitis One pill by mouth once a day as needed for allergies 30 Tab 11 07/19/2017 05/18/20 18 Discontinued atorvaSTATin (LIPITOR) 40 MG TabletIndications:D yslipidemia, goal LDL below 70 Take 1 Tab by mouth at bedtime. 90 Tab 1 09/08/2017 05/18/20 18 Discontinued gabapentin (NEURONTIN) 300 MG Capsule One pill in am, one midday, two in pm, as directed, increase up to 2 capsules 3 times daily 180 Cap 5 11/16/2017 05/18/20 18 Discontinued MetFORMIN (GLUCOPHAGE) 1000 MG TabletIndications:T ype 2 diabetes mellitus with hemoglobin A1c goal of less than 7.0% (HCC) Take 1 Tab by mouth 2 times a day. With food. 60 Tab 5 01/10/2018 05/18/20 18 Discontinued omeprazole (PRILOSEC) 20 MG CPDR Take 1 Cap by mouth daily. 90 Cap 1 01/10/2018 05/18/20 18 Discontinued potassium chloride ER 10 MEQ TBCRIndications:Hyp okalemia With food. Pt reports only taking once dailly. 60 Tab 5 02/17/2018 05/18/20 18 Discontinued escitalopram (LEXAPRO) 10 MG Tablet Take 1.5 Tabs by mouth daily. 45 Tab 5 02/17/2018 05/16/20 18 Discontinued insulin glargine (LANTUS SOLOSTAR) 100 UNIT/ML SOPNIndications:Typ e 2 diabetes mellitus with hemoglobin A1c goal of less than 7.0% (HCC) Inject 24 units at bed time 5 Pre-filled Pen Syringe Dosing Unit 3 03/12/2018 05/18/20 18 Discontinued Dulaglutide (TRULICITY) 1.5 MG/0.5ML SOPNIndications:Typ e 2 diabetes mellitus with hemoglobin A1c goal of less than 7.0% (HCC) Inject 1 syringeful once weekly 4 Pre-filled Pen Syringe Dosing Unit 5 03/12/2018 05/18/20 18 Discontinued cephalexin (KEFLEX) 250 MG Capsule Take 1 Cap by mouth daily. Through urology 30 Cap 0 03/28/2018 05/18/20 18 Discontinued oxybutynin (DITROPAN) 5 MG Tablet Take 1 Tab by mouth 2 times a day. Through urology 03/28/2018 05/18/20 18 Discontinued tamsulosin (FLOMAX) 0.4 MG Capsule Take 1 Cap by mouth daily. Through urology 03/28/2018 05/18/20 18 Discontinued traZODone (DESYREL) 50 MG TabletIndications:S leep disturbances Take 1 Tab by mouth at bedtime. 30 Tab 5 03/28/2018 05/18/20 18 Discontinued levothyroxine (LEVOXYL) 150 MCG TabletIndications:A cquired hypothyroidism Take 1 Tab by mouth daily. (at least 30 min prior to breakfast or other meds) 30 Tab 11 04/02/2018 05/18/20 18 Discontinued nadolol (CORGARD) 20 MG Tablet Take 1 Tab by mouth daily. 30 Tab 3 04/11/2018 05/18/20 18 Discontinued cyclobenzaprine (FLEXERIL) 10 MG Tablet take 1 tablet by mouth at bedtime 30 Tab 0 04/25/2018 05/18/20 18 Discontinued Hydrocodone-Acetami nophen 10-325 MG per tabletIndications:S jennifer stenosis of lumbar region without neurogenic claudication,DDD (degenerative disc disease), lumbar,MEDICATION USE AGREEMENT take 1 tablet by mouth twice a day if needed for pain 16 Tab 0 2018 05/18/20 18 Discontinued cyclobenzaprine (FLEXERIL) 10 MG Tablet Take 1 Tab by mouth at bedtime. 30 Tab 0 05/18/2018 06/04/20 18 Discontinued gabapentin (NEURONTIN) 300 MG Capsule One pill in am, one midday, two in pm, as directed, increase up to 2 capsules 3 times daily 180 Cap 5 05/18/2018 05/18/20 18 Discontinued oxybutynin (DITROPAN) 5 MG Tablet Take 1 Tab by mouth 2 times a day. 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 7 02/13/2018 Atypical chest pain 08/19/2016 01/17/2017 Depression with anxiety 08/19/2016 02/14/20 18 Hepatic cirrhosis ([facility]) 08/19/2016 03/28/20 17 Polyuria 08/09/2016 01/17/2017 Urinary frequency 08/09/2016 01/17/2017 Generalized OA 06/14/2016 03/28/2017 Body mass index (BMI) of 45.0-49.9 in adult ([facility] ) 12/09/2015 01/17/2017 Overview: bmi= 48.04 12/09/15 Need for shingles vaccine 12/09/20152015 Bilateral shoulder pain 08/25/2015 06/07/20 16 Bilateral shoulder pain 07/16/2015 06/07/20 16 Cerebral palsy ([facility]) 04/23/2015 03/28/2017 Candidal vulvovaginitis 02/12/2015 06/07/20 16 [...] 40) ([facility]) 10/28/2013 01/17/2017 Overview: bmi= 53.93 10/28/13 Sleep [...] 40) ([facility]) 05/25/2012 01/17/2017 Overview: BMI= 55.27 05/25/12 Impacted [...] pain 01/24/2012 01/17/2017 Genetic Sleep Disorder Research Other*[id number] 05/13/2011 04/07/2016 Obstructive sleep apnea 01/18/2011 12/27/19 [...] 40) ([facility]) 12/08/2009 07/02/2014 Overview: Per Obesity Taxonomy ICD-10 [...] Vital Sign Reading Time Taken Blood Pressure 126/70 05/16/2018 11:30 AM EDT Pulse 82 05/16/2018 11:30 AM EDT Temperature 37 C (98.6 F) 05/16/2018 11: 30 AM EDT Respiratory Rate 18 05/16/2018 11:3 0 AM EDT Oxygen Saturation - - Inhaled Oxygen Concentration - - Weight 118.4 kg (261 lb) 05/16/2018 11: 30 AM EDT Height - - Body Mass Index 52.72 05/16/2018 11:30 AM EDT in this encounter Progress Notes * Rajwinder Carter, DO - 05/16/2018 11:38 AM EDT Formatting of this note may be different from the original. SUBJECTIVE: Chief Complaint Patient presents with RECHECK MEDICATION ADMINISTRATION Flu and/or Pneumo Inj HPI: Shaina Bustos is a 63 year old female who presents today with her caregiver. Caregiver notes that there have been issues with her vicodin. We had also had the same report from home nursing. Thereis concern that the niece is stealing the medications. She thought that another pill that looked similar was her vicodin. They bring this in today and it is actually atorvastatin. Pt does have issuesdue to her CP and has ongoing back issues. Apparently, her niece has filled her pill bottles. They have removed her vicodin from the pill containers and putting it in a safe. They have apparently done this for a month or so. Home nursing just called on 05/04 to let us know. PHM: Patient Active Problem List Diagnosis Code [...] Chronic pain syndrome G89.4 MEDICATION USE AGREEMENT [id number] History of Clostridium difficile colitis Z86.19 Cirrhosis of liver (HCC) K74.60 THAD on CPAP G47.33, Z99.89 Current Outpatient Prescriptions Medication Sig Dispense Refill atorvaSTATin (LIPITOR) 40 MG Tablet Take 1 Tab by mouth at bedtime. 30 Tab 5 escitalopram (LEXAPRO) 20 MG Tablet Take 1 Tab by mouth daily. 30 Tab 5 fexofenadine (TERESA) 180 MG Tablet One pill by mouth once a day as needed for allergies 30 Tab 11 furosemide (LASIX) 20 MG Tablet One pill by mouth once a day, as needed for edema 30 Tab 5 Hydrocodone-Acetaminophen 10-325 MG per tablet take 1 tablet by mouth twice a day if needed forpain 60 Tab 0 levothyroxine (LEVOXYL) 150 MCG Tablet Take 1 [...] 500 mg by mouth daily. Glucose Blood ([employer] VERIO) STRP Use up to four times a day as directed.DX:E11.9 400 Strip 3 Blood Glucose Monitoring Suppl ([employer]) w/Device KIT Use up to 4 times a day E11.9 1 Kit 0 nystatin 244797 UNIT/GM cream Apply topically to affected area [...] 1 tab daily 1 Tab 0 NEBULIZER OKRTNEY as directed 1 0 cyclobenzaprine (FLEXERIL) 10 MG Tablet TAKE 1 TABLET BY MOUTH AT BEDTIME 30 Tab 0 oxybutynin (DITROPAN) 5 MG Tablet Take 1 Tab by mouth 2 times a day. Through urology 60 Tab 5 Dulaglutide (TRULICITY) 1.5 MG/0.5ML SOPN Inject 1 syringeful once weekly 4 Pre- filled Pen Syringe Dosing Unit 5 gabapentin (NEURONTIN) 300 MG Capsule One pill in am, one midday, two in pm, 180 Cap 5 insulin glargine (LANTUS SOLOSTAR) 100 UNIT/ML SOPN Inject 24 units at bed time 5 Pre-filled Pen Syringe Dosing Unit 3 Past Medical History: Diagnosis Date Chronic [...] 10/04/2016 normal bx, repeat 10 yrs/[facility] PROCEDURE NEC wisdom teeth x 4 DILATION AND CURETTAGE (D&C) EGD, FLEXIBLE, DIAGNOSTIC 10/04/2016 gastritis/[facility] EGD, FLEXIBLE, DIAGNOSTIC 01/11/2018 eso varices, retained food, repeat 1 yr/[facility] PELVIS/HIP JOINT SURGERY NEC teenager aid in walking REPAIR/GRAFT ACHILLES TENDON age 40 aid in walking Review of patient's allergies indicates: Allergen Reactions Pcn [Penicillins] Rash Family History Problem Relation Age of Onset Heart Disorder Father of [place] at age 61 Heart Disorder Mother of [place] age 72 Diabetes Father Cancer None Arthritis [...] No rash and No itching OBJECTIVE: BP 126/70 | Pulse 82 | Temp (Src) 98.6 (Tympanic) | Resp 18 | Wt 261 lbs (118.389kg) | BMI 52.72 kg/m | BSA 2.22 m PHYSICAL EXAM: General: alert, no distress and well nourished Head: Normocephalic, No masses, lesions, tenderness or abnormalities Heart: regular rate & rhythm, no murmurs and no gallops Lungs: chest symmetric with normal AP diameter, no chest deformities noted, no chest wall tenderness, lungs clear to auscultation Abdomen: abdomen soft, non-tender, normal bowel sounds and no masses or organomegaly Extremities: no cyanosis, some atrophy noted of LE Skin: skin color, texture, turgor are normal, no rashes or significant lesions ASSESSMENT/PLAN: M48.061 Spinal stenosis of lumbar region without neurogenic claudication (primary encounter diagnosis) M51.36 Ddd (degenerative disc disease), lumbar [id number] Medication use agreement Plan: Long discussion with pt today. Advised that I will not continue prescribe her controlled substances when there is concern for diversion. Given her chronic health issues, I feel she likely does benefit from vicodin. Advised that she would need to use a pill pack pharmacy for me to continue. She is agreeable. Nursing verified with [facility] that they will take over pt's RX. Pt and caregiver made aware. Overall, I am hopeful that this helps with compliance. Medications: 1. Hydrocodone-acetaminophen 10-325 mg po tabs Sig:Take 1 tablet by mouth twice a day if needed forpain E03.9 Acquired hypothyroidism Plan: Pt will continue on current regimen. Medications: 1. Levothyroxine sodium 150 mcg or tabs Sig:Take 1 tab by mouth daily. (at least 30 min prior to breakfast or other meds) G47.9 Sleep disturbances Plan: Pt will remain on trazodone. Rx sent. Medications: 1. Trazodone hcl 50 mg po tabs Sig:Take 1 tab by mouth at bedtime. E87.6 Hypokalemia Plan: Potassium refilled. Medications: 1. Potassium chloride er 10 meq po tbcr Sig:With food. pt reports only taking once dailly. E11.9 Type 2 diabetes mellitus with hemoglobin a1c goal of less than 7.0% ([facility]) Plan: Pt will remain on metformin. Medications: 1. Metformin hcl 1000 mg po tabs Sig:Take 1 tab by mouth 2 times a day. with food. E78.5 Dyslipidemia, goal ldl below 70 Plan: Atorvastatin refilled. She is currently up to date on lab studies. Medications: 1. Atorvastatin calcium 40 mg po tabs Sig:Take 1 tab by mouth at bedtime. R60.0 Localized edema I87.2 Venous stasis dermatitis of both lower extremities Plan: Pt will remain on lasix. Rx sent. Medications: 1. Furosemide 20 mg po tabs Sig:One pill by mouth once a day, as needed for edema H10.13 Allergic conjunctivitis of both eyes J30.89 Allergic rhinitis due to other allergic trigger, unspecified seasonality Plan: Pt will continue on teresa. Medications: 1. Fexofenadine hcl 180 mg po tabs Sig:One pill by mouth once a day as needed for allergies Z23 Need for prophylactic vaccination and inoculation against influenza Plan: Vaccine given. See admin record. Immunizations/injection: 1. Influenza vacc, quad, pf, 6 months & up, 0.5 ml, im Follow up: Return in about 3 months (around 08/15/2018) for Needs 40 min recheck. Rajwinder Carter, DO * Ludy Jara LPN - 05/16/2018 11:34 AM EDT PRE - ADMINISTRATION DOCUMENTATION Are you allergic to latex? No Are you experiencing any cold symptoms or fever? No Have you had Guillain-[place] Syndrome (an illness that causes paralysis)? No Have you had the flu shot in the past? YES Have you ever had a reaction to the flu shot? No Ludy Jara LPN, 05/16/2018 11:33 AM Immunization Administration Documentation Time Out Procedure Performed: Yes Patient Identified (Ask Name/Date of ): Yes Does the patient have a fever greater than 101 degrees today? No Patient allergic to latex? No VFC Stock: No Immunization(s) verified: Yes, Immunization Name: Flu , VIS Sheet(s) given: Yes Verified Side and Site: Yes Verified Shot(s) with Parent(s)/Patient: Yes in this encounter Nursing Notes * Ludy Jara LPN - 05/16/2018 11:31 AM EDT Recheck in this encounter Plan of Treatment Upcoming Encounters Date Type Specialty Care Team Description 06/05/2018 Office Visit Family Medicine Torrie Slaughter PA-C [address] [place] [facility] [place] [address] [phone] 06/11/2018 Office Visit Gastroenterology Lyssa Stout CRNP [address] [facility] [place] [address] [phone] 06/11/2018 Nutrition Services Gastroenterology Melissa Omalley RDN [address] [place] [address] [phone] 06/13/2018 Pharmacy Pharmacy [facility] [address] [facility] [place] [address] [phone] 08/07/2018 Office Visit Sleep Disorders Lanette Fields CRNP [address] [facility] [place] [address] [phone] [place], Nurse Sleep Disorders [address] [facility] [place] [address] [phone] 08/21/2018 Office Visit Family Medicine Rajwinder Carter DO [address] [place] [address] [phone] 08/23/2018 Office Visit Dermatology Rachel Hill MD [address] [place] [address], [place] [address] [phone] 09/26/2018 Nurse Only Gastroenterology Dom, [facility] [address] [facility] [place] [address] [phone] 12/19/2018 Office Visit Gynecology Obstetrics Irene Mujica CRNP [address] [facility] [place] [address] [phone] Health Maintenance Due Date Last Done Comments [...] of lumbar re gion without neurogenic claudication - Primary Spinal stenosis, lumbar region, without neurogenic claudication DDD (degenerative disc disea se), lumbar Degeneration of lumbar or lumbosacral intervertebral disc MEDICATION USE AGREEMENT Acquired hypothyroidism Unspecified hypothyroidism Sleep disturbances Sleep disturbance, unspecified Hypokalemia Hypopotassemia Type 2 diabetes mellitus wit h hemoglobin A1c goal of less than 7.0% (HCC) Dyslipidemia, goal LDL below 70 Other and unspecified hyperlipidemia Localized edema Edema Venous stasis dermatitis of both lower extremities Allergic conjunctivitis of b oth eyes Other chronic allergic conjunctivitis Allergic rhinitis due to oth er allergic trigger, unspecified seasonality Need for prophylactic vaccin ation and inoculation against influenza in this encounter"
--- OUTSIDE RECORDS SUMMARY | 2023-05-10 23:20 | External Medical Summary | Summary of Care ---
Author Name Unknown Organization [place] [address] Phone Care Team Providers Care Sales Account Specialist Name Role Phone ArabellaRajwinder thacker Primary Care Provider [phone] Reason for Visit * Reason Comments After Hours Call Encounter Details Date Type Department Care Team Description 06/08/2018 Telephone Internal Medicine [address] [place] [address] Kamini Mayorga MD [address] [place] [address] [place] [address] [phone] After Hours Call Allergies Active Allergy Reactions [...] bedtime 30 Each 3 10/11/2017 Active nystatin 661319 UNIT/GM creamIndications:Cand idal vulvovaginitis Apply topically to affected area 2 times a day. To affacted area for two weeks. 15 g 2 10/12/2017 Active Blood Glucose Monitoring Suppl ([employer] VERIO) w/Device KITIndications:Type 2 diabetes mellitus with hemoglobin A1c goal of less than 7.0% (HCC) Use up to 4 times a day E11.9 1 Kit 0 10/17/2017 Active Glucose Blood (Bakbone SoftwareTOUCH VERIO) STRP Use up to four times [...] pain 01/24/2012 01/17/2017 Genetic Sleep Disorder Research Other*[id number] 05/13/2011 04/07/2016 Obstructive sleep apnea 01/18/2011 12/27/19 [...] Miscellaneous Notes * Telephone Encounter - Kamini Mayorga MD - 06/08/2018 7:43 AM EDT Patient called after hours line 720pm 06/07/18. Reports she was getting into her car using a step stool. Slipped and fell backwards, landing on her buttock/back. Back feels bruised. Happened about 6 hours earlier. Did not hit her head, no headache or dizziness. + bruise on back. Breathing fine, no chest pain. No numbness/ weakness/ tingling in legs. Advised her to use ice pack, tylenol and call PCP in AM if she feels she needs to be seen. in this encounter Plan of Treatment Upcoming Encounters Date Type Specialty Care Team Description 06/11/2018 Office Visit Gastroenterology Lyssa Stout CRNP [address] [facility] [place] [address] 06/11/2018 Nutrition Services Gastroenterology Melissa Omalley RDN [address] [place] [id number] 06/13/2018 [address] [address] [phone] 08/07/2018 Office Visit Sleep Disorders Lanette Fields CRNP [address] [place] [address] [phone] [place], Nurse Sleep Disorders [address] [place] [address] [phone] 08/21/2018 Office Visit Family Medicine Rajwinder Carter DO [address] [place] [address] [phone] 08/23/2018 Office Visit Dermatology Rachel Hill MD [address] [place] [address], [place] [address] [phone] 09/26/2018 Nurse Only Gastroenterology Dom, [facility] [address] [place] [address] [phone] 12/19/2018 Office Visit Gynecology Obstetrics Irene Mujica CRNP [address] [place] [address] [phone] Health Maintenance Due Date Last Done Comments [...]
--- OUTSIDE RECORDS SUMMARY | 2023-05-10 23:20 | External Medical Summary | Summary of Care ---
Author Name Unknown Organization [place] [address] Phone Care Team Providers Care Mig Welder Name Role Phone Rajwinder Carter DO Primary Care Provider [phone] Reason for Visit * Reason Comments Call Back Encounter Details Date Type Department Care Team Description 05/28/2018 Telephone [facility] [address] [place] [address] Rajwinder Carter DO [address] [place] [address] [phone] Call Back Allergies Active Allergy Reactions Severity [...] bedtime 30 Each 3 10/11/2017 Active nystatin 529023 UNIT/GM creamIndications:Ca ndidal vulvovaginitis Apply topically to affected area 2 times a day. To affacted area for two weeks. 15 g 2 10/12/2017 Active Blood Glucose Monitoring Suppl ([employer]OUCH VERIO) w/Device KITIndications:Type 2 diabetes mellitus with hemoglobin A1c goal of less than 7.0% (HCC) Use up to 4 times a day E11.9 1 Kit 0 10/17/2017 Active Glucose Blood ([employer]OUCH VERIO) STRP Use up to four times [...] pain 01/24/2012 01/17/2017 Genetic Sleep Disorder Research Other*[id number] 05/13/2011 04/07/2016 Obstructive sleep apnea 01/18/2011 12/27/19 [...] Miscellaneous Notes * Telephone Encounter - Alberta Shaw, THAD - 06/05/2018 2:03 PM EDT Patient has been notified of the message. Patient has no further questions. * Telephone Encounter - Susan Rosales RN - 06/05/2018 9:25 AM EDT Signed order and DME faxed to [email or web address] * Telephone Encounter - Rajwinder Carter DO [...] Please advise. * Telephone Encounter - Susan Rosales RN - 05/28/2018 2:25 PM EDT Called Channing Smith works for [email or web address] They do leg compression machines they take care of insurance just need faxed to them a demographic and an order for leg compression Do you still want to order? In another message I called both [facility] and [facility] and they do not carry the machine, so I spoke to patient and she called in with this number * Telephone Encounter - Shelly Hirsch, POSTPARTUM RN - 05/28/2018 12:10 PM EDT Patient is calling She is trying to get a leg compression machine. She wants a call back. channing smith [phone] is the guest service representative that somebody can talk to about it. in this encounter Plan of Treatment Upcoming Encounters Date Type Specialty Care Team Description 06/07/2018 Office Visit Family Medicine Torrie Slaughter PA-C [address] [facility] [address] [phone] 06/11/2018 Office Visit [facility] [address] [facility] [address] [phone] 06/11/2018 Nutrition Services Gastroenterology Melissa Omalley, SAMANTHA [address] [place] [address] [phone] 06/13/2018 Pharmacy [facility] [address] [facility] [address] [phone] 08/07/2018 Office Visit Sleep Disorders [facility] [address] [facility] [place] [address] [phone] [place], Nurse Sleep Disorders [address] [facility] [place] [address] [phone] 08/21/2018 Office Visit Family Medicine [facility] [address] [facility] [place] [address] [phone] 08/23/2018 Office Visit Dermatology Rachel Hill MD [address] [place] [address], [place] [address] [phone] 09/26/2018 Nurse Only Gastroenterology Nurse Dom [facility] [address] [place] [address] [phone] 12/19/2018 Office Visit Gynecology Obstetrics Irene Mujica CRNP [address] [place] [address] [phone] Health Maintenance Due Date Last Done Comments [...]
--- OUTSIDE RECORDS SUMMARY | 2023-05-10 23:21 | External Medical Summary | Summary of Care ---
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 Name Role Phone Rajwinder Carter DO Primary Care Provider [phone] Reason for Referral * Evaluate & Treat - Unlimited Visits (Within 10 days (routine)) Status Reason Specialty Diagnoses / Procedures Referred By Contact Referred To Contact Pending Review Specialty Services Required HOME CARE / Home Care Diagnoses Polypharmacy Rajwinder Carter DO [address] [place] [address] [address] Reason for Visit * Reason Comments STATUS CHECK Encounter Details Date Type Department Care Team Description 03/28/2018 Office Visit [place] [address] [place] [address] Rajwinder Carter DO [address] [place] [address] [phone] Type 2 diabetes mellitus with hemoglobin A1c goal of less than 7.0% ([facility])*;DM type 2 nursing care encounter (HCC);Sleep disturbances;Cerebral palsy, unspecified type (HCC);Cirrhosis of liver without ascites, unspecified hepatic cirrhosis type (HCC);Acquired hypothyroidism;Polypha rmacy Allergies Active Allergy Reactions Severity Noted Date [...] tab daily 1 Tab 0 05/25/2012 Active furosemide (LASIX) 20 MG TabletIndications:E abelardo,Stasis dermatitis One pill by mouth once a day, as needed for edema 30 Tab 5 07/19/2017 Active fexofenadine (BERNARDA) 180 MG TabletIndications:A llergic conjunctivitis of both eyes,Allergic rhinitis One pill by mouth once a day as needed for allergies 30 Tab 11 07/19/2017 Active atorvaSTATin (LIPITOR) 40 MG TabletIndications:D yslipidemia, goal LDL below 70 Take 1 Tab by mouth at bedtime. 90 Tab 1 09/08/2017 Active albuterol-ipratropi um (DUONEB) 2.5-0.5 MG/3ML nebulizer [...] bedtime 30 Each 3 10/11/2017 Active nystatin 280635 UNIT/GM creamIndications:Ca ndidal vulvovaginitis Apply topically to affected area 2 times a day. To affacted area for two weeks. 15 g 2 10/12/2017 Active Blood Glucose Monitoring Suppl (ONETOUCH VERIO) w/Device KITIndications:Type 2 diabetes mellitus with hemoglobin A1c goal of less than 7.0% (HCC) Use up to 4 times a day E11.9 1 Kit 0 10/17/2017 Active gabapentin (NEURONTIN) 300 MG Capsule One pill in am, one midday, two in pm, as directed, increase up to 2 capsules 3 times daily 180 Cap 5 11/16/2017 Active Glucose Blood (ONETOUCH VERIO) STRP Use up to four times a day as directed.DX:E11 .9 400 Strip 3 12/04/2017 Active MetFORMIN (GLUCOPHAGE) 1000 MG TabletIndications:T ype 2 diabetes mellitus with hemoglobin A1c goal of less than 7.0% (HCC) Take 1 Tab by mouth 2 times a day. With food. 60 Tab 5 01/10/2018 Active omeprazole (PRILOSEC) 20 MG CPDR Take 1 Cap by mouth daily. 90 Cap 1 01/10/2018 Active potassium chloride ER 10 MEQ TBCRIndications:Hyp okalemia With food. Pt reports only taking once dailly. 60 Tab 5 02/17/2018 Active escitalopram (LEXAPRO) 10 MG Tablet Take 1.5 Tabs by mouth daily. 45 Tab 5 02/17/2018 Active vitamin c (ASCORBIC ACID) 500 MG Tablet Take 500 mg by mouth daily. Active BD PEN NEEDLE MINI U/F 31G X 5 MMIndications:Type 2 diabetes mellitus with hemoglobin A1c goal of less than 7.0% (HCC) Use with Basaglar at bedtime. 30 Each 11 03/12/2018 Active insulin glargine (LANTUS SOLOSTAR) 100 UNIT/ML SOPNIndications:Typ e 2 diabetes mellitus with hemoglobin A1c goal of less than 7.0% (HCC) Inject 24 units at bed time 5 Pre-filled Pen Syringe Dosing Unit 3 03/12/2018 Active Dulaglutide (TRULICITY) 1.5 MG/0.5ML SOPNIndications:Typ e 2 diabetes mellitus with hemoglobin A1c goal of less than 7.0% (HCC) Inject 1 syringeful once weekly 4 Pre-filled Pen Syringe Dosing Unit 5 03/12/2018 Active cephalexin (KEFLEX) 250 MG Capsule Take 1 Cap by mouth daily. Through urology 30 Cap 0 03/28/2018 Active oxybutynin (DITROPAN) 5 MG Tablet Take 1 Tab by mouth 2 times a day. Through urology 03/28/2018 Active tamsulosin (FLOMAX) 0.4 MG Capsule Take 1 Cap by mouth daily. Through urology 03/28/2018 Active traZODone (DESYREL) 50 MG TabletIndications:S leep disturbances Take 1 Tab by mouth at bedtime. 30 Tab 5 03/28/2018 Active BETAMETHASONE VALERATE 0.1 % EX CREAIndications:Ins ect bites,Dermatitis,Pr uritus apply to affected area twice daily, as needed 30 g 1 04/19/2013 03/28/20 18 Discontinued OCEAN NASAL SPRAY 0.65 % NA SOLNIndications:All ergic rhinitis Two sprays in each nostril as needed for nasal dryness or congestion 1 Bottle 5 05/29/2014 03/28/20 18 Discontinued Azelastine HCl (ASTELIN) 0.1 % nasal sprayIndications:Ot algia, bilateral,Dysfuncti on of Eustachian tube, bilateral,Chronic rhinitis Administer 2 Sprays into each nostril 2 times a day. 1 Bottle 11 12/09/2015 03/28/20 18 Discontinued nystatin (NYSTOP) powderIndications:C utaneous candidiasis Apply topically to affected area 3 times a day. Sprinkle over affected area. 1 Bottle 1 05/11/2016 03/28/20 18 Discontinued Glucosamine-Chondro itin (GLUCOSAMINE CHONDR COMPLEX) 500-400 MG CapsuleIndications: Primary osteoarthritis of knees, bilateral Take 1 Cap by mouth 3 times a day. 1 Cap 0 06/07/2016 03/28/20 18 Discontinued albuterol (PROVENTIL HFA) 108 (90 BASE) MCG/ACT inhalerIndications: Bronchitis, complicated Inhale 2 Puffs by mouth 4 times a day. 1 Inhaler 1 06/29/2016 03/28/20 18 Discontinued Vitamin D, Ergocalciferol, 38471 UNITS CapsuleIndications: Vitamin D deficiency 1capsule every other week 8 Cap 6 09/27/2016 03/28/20 18 Discontinued Blood Glucose Monitoring Suppl ([employer] VERIO) W/DEVICE KITIndications:Type 2 diabetes mellitus with hemoglobin A1c goal of less than 7.0% (HCC) Use as directed. Use daily to check blood sugars DX:E11.9 1 Kit 0 01/17/2017 03/28/20 18 Discontinued [employer] ULTRASOFT LANCETS MISCIndications:Typ e 2 diabetes mellitus with hemoglobin A1c goal of less than 7.0% (HCC) Use as directed 4 times a day as needed (Use daily to check blood sugars DX:E11.9). Use up to four times a day as directed 1 Box Dosing Unit 11 01/17/2017 03/28/20 18 Discontinued busPIRone (BUSPAR) 10 MG Tablet 0 02/14/2017 03/28/20 18 Discontinued atenolol (TENORMIN) 25 MG Tablet Take 1 Tab by mouth at bedtime. 30 Tab 5 10/09/2017 04/11/20 18 Discontinued traZODone (DESYREL) 50 MG TabletIndications:S leep disturbances Take 1 Tab by mouth at bedtime. 30 Tab 5 01/10/2018 03/28/20 18 Discontinued levothyroxine (LEVOXYL) 100 MCG Tablet Take 1 Tab by mouth daily. (at least 30 min prior to breakfast or other meds) 30 Tab 5 02/26/2018 04/02/20 18 Discontinued levothyroxine (LEVOXYL) 75 MCG Tablet Take 1 Tab by mouth daily. (at least 30 min prior to breakfast or other meds) Take with 100mcg to equal 175mcg 30 Tab 11 02/23/2018 04/02/20 18 Discontinued Hydrocodone-Acetami nophen 10-325 MG per tabletIndications:S jennifer stenosis of lumbar region without neurogenic claudication,DDD (degenerative disc disease), lumbar,MEDICATION USE AGREEMENT take 1 tablet by mouth twice a day if needed for pain 60 Tab 0 03/12/2018 04/09/20 18 Discontinued cyclobenzaprine (FLEXERIL) 10 MG Tablet take 1 tablet by mouth at bedtime 30 Tab 0 03/26/2018 04/24/20 18 Discontinued as of this encounter Active Problems Problem Noted Date THAD on CPAP 12/26/2017 Cirrhosis of liver (HCC) 11/20/2017 History of Clostridium difficile colitis 08/29/2017 Chronic pain syndrome 01/17/2017 MEDICATION USE AGREEMENT 01/17/2017 Overview: 01/17/17 Acquired hypothyroidism 12/12/2016 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 1 10/09/2015 Obesity, morbid (more than 100 lbs over ideal weight or BMI > 40) ([facility]) 02/09/2015 Restrictive lung disease 12/10/2014 Type 2 diabetes mellitus with hemoglobin A1c goal of less than 7.0% ([facility]) 09/26/2013 Overview: ICD-10 update of [...] to 59.9 in adult ( [facility]) 06/12/2017 12/19/2017 Overview: Per Obesity protocol #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 7 02/13/2018 Atypical chest pain 08/19/2016 01/17/2017 Depression with anxiety 08/19/2016 02/14/20 18 Hepatic cirrhosis ([facility]) 08/19/2016 03/28/20 17 Polyuria 08/09/2016 01/17/2017 Urinary frequency 08/09/2016 01/17/2017 Generalized OA 06/14/2016 03/28/2017 Body mass index (BMI) of 45.0-49.9 in adult ([facility] ) 12/09/2015 01/17/2017 Overview: bmi= 48.04 12/09/15 Need for shingles vaccine 12/09/20152015 Bilateral shoulder pain 08/25/2015 06/07/20 16 Bilateral shoulder pain 07/16/2015 06/07/20 16 Cerebral palsy ([facility]) 04/23/2015 03/28/2017 Candidal vulvovaginitis 02/12/2015 [...] weight or BMI > 40) ([facility]) 10/28/2013 01/17/2017 Overview: bmi= 53.93 [...] ideal weight or BMI > 40) (HCC) 05/25/2012 01/17/2017 Overview: BMI= 55.27 05/25/12 Impacted [...] pain 01/24/2012 01/17/2017 Genetic Sleep Disorder Research Other*[id number] 05/13/2011 04/07/2016 Obstructive sleep apnea 01/18/2011 12/27/19 [...] weight or BMI > 40) ([facility]) 12/08/2009 07/02/2014 Overview: Per Obesity [...] 18 yrs) 03/26/2018 Hepatitis B, 20+ yrs 03/26/2018 Pneumococcal Polyvalent Vacc (Pneumovax) 06/01/2010 Seasonal Influenza, Quadriva lent, No Preserve, 6 Mons & Above, IM 07/10/2017 Seasonal Influenza, Quadriva lent, No Preserve, IM 06/07/2016 Seasonal Influenza, Trivalen t, with Preserve, 3yr & Above, Split 05/22/2015,05/29/2014,07/25/2013,,06/02/2011,06/01/2010,2008,08/18/2008 05/22/2016 TDAP (age 10 and older)(Boostrix) 05/01/2017 [...] Vital Sign Reading Time Taken Blood Pressure 130/80 03/28/2018 3:22 PM EDT Pulse 82 03/28/2018 3:22 PM EDT Temperature 37.1 C (98.8 F) 03/28/2018 3 :22 PM EDT Respiratory Rate 18 03/28/2018 3:22 PM EDT Oxygen Saturation - - Inhaled Oxygen Concentration - - Weight - - Height - - Body Mass Index - - in this encounter Instructions * Patient Instructions - Imelda Villagran LPN - 03/28/2018 3:22 PM EDT Dear Shaina Bustos, The care of [...] Address and Fax Number: Rajwinder Carter DO [place] [address] in this encounter Progress Notes * Rajwinder Carter DO - 03/28/2018 3:28 PM EDT Formatting of this note may be different from the original. SUBJECTIVE: Chief Complaint Patient presents with STATUS CHECK HPI: Shaina Bustos is a 62 year old female who presents today with a caregiver. They exhibit quite abit of confusion regarding her medications. They note that a family member will fill her pillboxes.Pt is not aware of her medications. They cannot say what is done with her vicodin. Caregiver seems to express concern that her medications are not being managed appropriately. Caregiver notes that her sugars have been ranging between 100 and 150 for the last few weeks. She is following with MTM. She admits to dietary indiscretion. Pt is due for repeat thyroid studies. Hopeful that we can get her to one tablet rather than having 2 different dosages. She does follow with urology and is on a number of medications through them. 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 M48.061 Cerebral palsy ([facility]) G80.9 HTN, goal below 140/90 I10 Chronic rhinitis J31.0 NG (nonalcoholic steatohepatitis) K75.81 Stasis dermatitis I87.2 DDD (degenerative disc disease), lumbar M51.36 Intermittent asthma with reliever use up to twice per week J45.20 Lymphedema I89.0 Type 2 diabetes mellitus with hemoglobin A1c goal of less than 7.0% ([facility]) E11.9 Vitamin D deficiency E55.9 Restrictive lung disease J98.4 Obesity, morbid (more than 100 lbs over ideal weight or BMI > 40) ([facility]) E66.01 Dyslipidemia, goal LDL below 70 E78.5 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 R39.81 Acquired hypothyroidism E03.9 Chronic pain syndrome G89.4 MEDICATION USE AGREEMENT [id number] History of Clostridium difficile colitis Z86.19 Cirrhosis of liver ([facility]) K74.60 THAD on CPAP G47.33, Z99.89 Current Outpatient Prescriptions Medication Sig Dispense Refill cephalexin (KEFLEX) 250 MG Capsule Take 1 Cap by mouth daily. Through urology 30 Cap 0 oxybutynin (DITROPAN) 5 MG Tablet Take 1 Tab by mouth 2 times a day. Through urology tamsulosin (FLOMAX) 0.4 MG Capsule Take 1 Cap by mouth daily. Through urology traZODone (DESYREL) 50 MG Tablet Take 1 Tab by mouth at bedtime. 30 Tab 5 BD PEN NEEDLE MINI U/F 31G X 5 MM Use with Basaglar at bedtime. 30 Each 11 vitamin c (ASCORBIC ACID) 500 MG Tablet Take 500 mg by mouth daily. escitalopram (LEXAPRO) 10 MG Tablet Take 1.5 Tabs by mouth daily. 45 Tab 5 potassium chloride ER 10 MEQ TBCR With food. Pt reports only taking once dailly. 60 Tab 5 MetFORMIN (GLUCOPHAGE) 1000 MG Tablet Take 1 Tab by mouth 2 times a day. With food. 60 Tab 5 omeprazole (PRILOSEC) 20 MG CPDR Take 1 Cap by mouth daily. 90 Cap 1 Glucose Blood ([employer] VERIO) STRP Use up to four times a day as directed.DX:E11.9 400 Strip 3 gabapentin (NEURONTIN) 300 MG Capsule One pill in am, one midday, two in pm, as directed, increase up to 2 capsules 3 times daily 180 Cap 5 Blood Glucose Monitoring Suppl ([employer]TOUCH VERIO) w/Device KIT Use up to 4 times a day E11.9 1 Kit 0 nystatin 867799 UNIT/GM cream Apply topically to affected area 2 times a day. To affacted area for two weeks. 15 g 2 fluticasone (FLONASE) 50 MCG/ACT nasal spray Administer 2 Sprays into each nostril daily. 1 Inhaler 5 Insulin Pen Needle 31G X 6 MM MISC Use with Lantus Solostar at bedtime 30 Each 3 atorvaSTATin (LIPITOR) 40 MG Tablet Take 1 Tab by mouth at bedtime. 90 Tab 1 furosemide (LASIX) 20 MG Tablet One pill by mouth once a day, as needed for edema 30 Tab 5 ASPIRIN 81 MG PO TABS one tab by mouth daily 34 Tab 5 CENTRUM SILVER PO TABS 1 tab daily 1 Tab 0 NEBULIZER KORTNEY as directed 1 0 cyclobenzaprine (FLEXERIL) 10 MG Tablet take 1 tablet by mouth at bedtime 30 Tab 0 nadolol (CORGARD) 20 MG Tablet Take 1 Tab by mouth daily. 30 Tab 3 Hydrocodone-Acetaminophen 10-325 MG per tablet take 1 tablet by mouth twice a day if needed for pain 60 Tab 0 levothyroxine (LEVOXYL) 150 MCG Tablet Take 1 Tab by mouth daily. (at least 30 min prior to breakfast or other meds) 30 Tab 11 Dulaglutide (TRULICITY) 1.5 MG/0.5ML SOPN Inject 1 syringeful once weekly 4 Pre- filled Pen Syringe Dosing Unit 5 insulin glargine (LANTUS SOLOSTAR) 100 UNIT/ML SOPN Inject 24 units at bed time 5 Pre-filled Pen Syringe Dosing Unit 3 albuterol-ipratropium (DUONEB) 2.5-0.5 MG/3ML nebulizer solution Use 1 vial in nebulizer 180 mL 0 fexofenadine (BERNARDA) 180 MG Tablet One pill by mouth once a day as needed for allergies 30 Tab 11 Past Medical History: Diagnosis Date Chronic pain [...] DIAGNOSTIC (RECTUM) 10/04/2016 normal bx, repeat 10 yrs/[facility] DENTAL SURGERY PROCEDURE NEC wisdom teeth x 4 DILATION AND CURETTAGE (D&C) EGD, FLEXIBLE, DIAGNOSTIC 10/04/2016 gastritis/[facility] EGD, FLEXIBLE, DIAGNOSTIC 01/11/2018 eso varices, retained food, repeat 1 yr/[facility] PELVIS/HIP JOINT SURGERY NEC teenager aid in walking REPAIR/GRAFT ACHILLES TENDON age 40 aid in walking Review of patient's allergies indicates: Allergen Reactions Pcn [Penicillins] Rash Family History Problem Relation Age of Onset Heart Disorder Father of [place] at age 61 Heart Disorder Mother of [place] age 72 Diabetes Father Cancer None Arthritis [...] No rash and No itching OBJECTIVE: BP 130/80 | Pulse 82 | Temp (Src) 98.8 (Tympanic) | Resp 18 | Wt (0.000kg) PHYSICAL EXAM: General: alert, no distress and well nourished Head: Normocephalic, No masses, lesions, tenderness or abnormalities Oropharynx: no exudate, no erythema, lips, buccal mucosa, and tongue normal and mucous membranes are moist Heart: regular rate & rhythm, no murmurs and no gallops Lungs: chest symmetric with normal AP diameter, no chest deformities noted, no chest wall tenderness, lungs clear to auscultation Abdomen: abdomen soft, non-tender, normal bowel sounds and no masses or organomegaly Extremities: some contracture, sitting in wheelchair Skin: skin color, texture, turgor are normal, no rashes or significant lesions ASSESSMENT/PLAN: E11.9 Type 2 diabetes mellitus with hemoglobin a1c goal of less than 7.0% (formerly [facility]) (primary encounter diagnosis) E11.9 Dm type 2 nursing care encounter (formerly [facility]) Plan: Pt advised to keep appt with MTM. Last HgBA1C was 7.1. Will monitor. Discussed diet. G47.9 Sleep disturbances Plan: Pt will remain on trazodone. Refill sent. Medications: 1. Trazodone hcl 50 mg po tabs Sig:Take 1 tab by mouth at bedtime. G80.9 Cerebral palsy, unspecified type (hcc) Plan: Pt nearly always in wheelchair but can maneuver herself some. Will monitor. K74.60 Cirrhosis of liver without ascites, unspecified hepatic cirrhosis type (hcc) Plan: No current issues she is to keep GI follow-up. E03.9 Acquired hypothyroidism Plan: Pt due for repeat TSH. Will await results and make any adjustments as necessary. Lab: 1. Tsh w/ft4 if tsh is indicated Z79.899 Polypharmacy Plan: There seems to be a lot of confusion regarding medications and some possible issues with medications going missing. Will ask that home health come in and review. Nursing is asked to have them come in twice a month for pill box fills. Will need to monitor situation closely as she is on vicodin. Referral: 1. Home health referral op Follow up: Return in about 6 weeks (around 05/09/2018). DO Audra Andre Heather N, LEADER TIER - 03/28/2018 3:22 PM EDT The importance of having a yearly diabetic eye exam has been discussed with patient. Order and Referral placed along with patient instructions. Provider made aware. Imelda Villagran LPN in this encounter Nursing Notes * Imelda Villagran LPN - 03/28/2018 3:22 PM EDT Pt here for recheck in this encounter Plan of Treatment Upcoming Encounters Date Type Specialty Care Team Description 05/02/2018 Imaging Radiology 05/16/2018 Office Visit [facility] [address] [facility] [address] [phone] 06/11/2018 [facility] [address] [facility] [address] [phone] 06/11/2018 Office [facility]astroenterology [facility] [address] [facility] [place] [address] [phone] 06/11/2018 Nutrition Services Gastroenterology Melissa Omalley, [place] [address] [place] [address] [phone] 08/07/2018 Office Visit Sleep Disorders [facility] Fields [facility] [address] [facility] [place] [address] [phone] [facility] [address] [facility] [address] [phone] 08/23/2018 Office Visit Dermatology Rachel Hill MD [address] [place] [address], [place] [address] [phone] 09/26/2018 Nurse Only Gastroenterology Nurse Dom Gastro Chau [address] [facility] [place] [address] [phone] 12/19/2018 Office Visit Gynecology Obstetrics Irene Mujica CRNP [address] [place] [address] [phone] Scheduled Referrals Name Priority [facility] Diagnoses [facility] OP Within 10 days (routine) Polypharmacy Ordered: 03/28/2018 Health Maintenance Due Date Last Done Comments DIABETES-EYE EXAM 1973 Influenza Vaccine (FLU shot) (#1) 2018 07/10/2017, 06/07/2016, 05/22/2015, Additional history exists DIABETES-HGBA1C EVERY 6 MONTHS 08/15/2018 02/13/2018, 10/11/2017, 03/28/2017, Additional history exists DIABETES-LDL EVERY 12 MONTHS 10/11/2018 10/11/2017, 02/01/2017, 05/05/2016, Additional history exists DIABETES-FOOT EXAM 12/26/2018 12/26/2017, [...] the intention of not completing the topic as of this encounter Implants Not on fileas of this encounter Results * TSH W/FT4 IF TSH IS INDICATED (03/28/2018 4:20 PM) Component Value Ref Range TSH 0.02(L) 0.27 - 4.2 uIU/m L FREE T4 REFLEXIVE 1.99(H) 0.9 - 1.7 ng/d L Specimen Performing Laborator y [facility] [address] [place] [address] in this encounter Visit Diagnoses Diagnosis Type 2 diabetes mellitus wit h hemoglobin A1c goal of less than 7.0% (HCC) - Primary DM type 2 nursing care enc nter (HCC) Type II or unspecified type diabetes mellitus without mention of complication, not stated as uncontrolled Sleep disturbances Sleep disturbance, unspecified Cerebral palsy, unspecified type (HCC) Cirrhosis of liver without a scites, unspecified hepatic cirrhosis type (HCC) Acquired hypothyroidism Unspecified hypothyroidism Polypharmacy Encounter for long-term (current) use of other medications in this encounter"
--- OUTSIDE RECORDS SUMMARY | 2023-05-10 23:21 | External Medical Summary | Summary of Care ---
Author Name Unknown Organization [place] [address] Phone Care Team Providers Care Site Inspector Name Role Phone Rajwinder Lara DO Primary Care Provider [phone] Reason for Visit * Reason Comments MEDICATION REFILL Encounter Details Date Type Department Care Team Description 05/29/[address] [address] Rajwinder Lara DO [facility] [place] [address] [phone] Allergies Active Allergy Reactions Severity Noted Date [...] bedtime 30 Each 3 10/11/2017 Active nystatin 353470 UNIT/GM creamIndications:Ca ndidal vulvovaginitis Apply topically to affected area 2 times a day. To affacted area for two weeks. 15 g 2 10/12/2017 Active Blood Glucose Monitoring Suppl (TrapsterTOUCH VERIO) w/Device KITIndications:Type 2 diabetes mellitus with hemoglobin A1c goal of less than 7.0% (HCC) Use up to 4 times a day E11.9 1 Kit 0 10/17/2017 Active Glucose Blood (TrapsterTOUCH VERIO) STRP Use up to four times [...] for pain 60 Tab 0 05/18/2018 Active cyclobenzaprine (FLEXERIL) 10 MG Tablet Take 1 Tab by mouth at bedtime. 30 Tab 0 05/18/2018 Active levothyroxine (LEVOXYL) 150 [...] Through urology 60 Tab 5 05/29/2018 Active oxybutynin (DITROPAN) 5 MG Tablet Take [...] 40) ([facility]) 02/09/2015 Restrictive lung disease 12/10/2014 Type 2 diabetes mellitus with hemoglobin A1c goal of less than 7.0% ([facility]) 09/26/2013 Overview: ICD-10 update of inactive term Vitamin D deficiency 09/26/2013 Lymphedema 03/11/2013 Intermittent asthma with reliever use up to twice per week 01/09/2013 Stasis dermatitis 05/07/2012 NG (nonalcoholic steatohepatitis) 04/12 HTN, goal below 140/90 03/27/2012 Chronic rhinitis 03/27/2012 Cerebral palsy ([facility]) 01/24/2012 Spinal stenosis of lumbar region [...] 59.9 in adult ( 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 ) 12/09/2015 01/17/2017 Overview: bmi= 48.04 12/09/15 Need for shingles vaccine 12/09/20152015 Bilateral shoulder pain 08/25/2015 06/07/20 16 Bilateral shoulder pain 07/16/2015 06/07/20 16 Cerebral palsy ([facility]) 04/23/2015 03/28/2017 Candidal vulvovaginitis 02/12/2015 06/07/20 [...] 40) ([facility]) 10/28/2013 01/17/2017 Overview: bmi= 53.93 10/28/13 [...] 40) ([facility]) 05/25/2012 01/17/2017 Overview: BMI= 55.27 05/25/12 [...] pain 01/24/2012 01/17/2017 Genetic Sleep Disorder Research Other*[id number] 05/13/2011 04/07/2016 Obstructive sleep apnea 01/18/2011 12/27/19 [...] Telephone Encounter - Rajwinder Lara DO - 05/29/2018 12:07 PM EDT Signed Prescriptions: Disp Refills oxybutynin (DITROPAN) 5 MG Tablet 60 Tab 5 Sig: Take 1 Tab by mouth 2 times a day. Through urology Authorizing Provider: RAJWINDER LARA * Telephone Encounter - Irma Martinez CPhT - 05/29/2018 10:11 AM EDT Formatting of this note may be different from the original. The following Rx is only written for 15 days and the pt is getting the medication blister packed. New 30 day supply pended Pending Prescriptions: Disp Refills oxybutynin (DITROPAN) 5 MG Tablet 60 Tab 5 Sig: Take 1 Tab by mouth 2 times a day. Through urology Last Office Visit: 05/16/2018 Next Office Visit: 08/21/2018 Scheduled Provider(s): Rajwinder Lara DO If no future appointments scheduled, and last appointment is greater than a year ago, please schedule patient for a follow-up appointment Last date the medication was ordered: N/A Patient Phone Numbers Labs: Lab Results Component [...] Stout CRNP [address] [place] [address] [phone] 06/11/2018 Nutrition Services Gastroenterology Melissa Omalley, [place] [address] [place] [address] [place] [address] [phone] 06/13/2018 Pharmacy Pharmacy [facility] [address] [place] [address] [phone] 08/07/2018 Office Visit Sleep Disorders Lanette Fields CRNP [address] [place] [address] [phone] [place], Nurse Sleep Disorders [address] [place] [address] [phone] 08/21/2018 Office Visit Family Medicine [facility] Lara DO [address] [facility] [place] [address] [phone] 08/23/2018 Office Visit Dermatology Rachel Hill MD [address] [place] [address] [phone] 09/26/2018 Nurse Only Gastroenterology Dom, Nurse Anthony Ritchie [address] [place] [address] [phone] 12/19/2018 Office Visit Gynecology Obstetrics Irene Mujica CRNP [address] [place] [address] [phone] Health Maintenance Due Date Last Done Comments [...]
--- OUTSIDE RECORDS SUMMARY | 2023-05-10 23:21 | External Medical Summary | Summary of Care ---
Author Name Unknown Organization [place] [address] Phone Care Team Providers Care Eight Section Blower Name Role Phone Rajwinder Carter DO Primary Care Provider [phone] Reason for Visit * Reason Comments TEST RESULTS Encounter Details Date Type Department Care Team Description 05/07/2018 Telephone [address] [place] [address] Rajwinder Carter DO [address] [place] [address] [phone] TEST RESULTS Allergies Active Allergy Reactions Severity Noted Date [...] 0 05/25/2012 Active furosemide (LASIX) 20 MG TabletIndications:Erickson ma,Stasis dermatitis One pill by mouth once a day, as needed for edema 30 Tab 5 07/19/2017 Active fexofenadine (BERNARDA) 180 MG TabletIndications:All ergic conjunctivitis of both eyes,Allergic rhinitis One pill by mouth once a day as needed for allergies 30 Tab 11 07/19/2017 Active atorvaSTATin (LIPITOR) 40 MG TabletIndications:Dys lipidemia, goal LDL below 70 Take 1 Tab by mouth at bedtime. 90 Tab 1 09/08/2017 Active albuterol-ipratropium (DUONEB) 2.5-0.5 MG/3ML nebulizer solutionIndications:A [...] bedtime 30 Each 3 10/11/2017 Active nystatin 107448 UNIT/GM creamIndications:Cand idal vulvovaginitis Apply topically to affected area 2 times a day. To affacted area for two weeks. 15 g 2 10/12/2017 Active Blood Glucose Monitoring Suppl (ThinkSuit VERIO) w/Device KITIndications:Type 2 diabetes mellitus with hemoglobin A1c goal of less than 7.0% (HCC) Use up to 4 times a day E11.9 1 Kit 0 10/17/2017 Active gabapentin (NEURONTIN) 300 MG Capsule One pill in am, one midday, two in pm, as directed, increase up to 2 capsules 3 times daily 180 Cap 5 11/16/2017 Active Glucose Blood (Snappy shuttleTOUCH VERIO) STRP Use up to four times a day as directed.DX:E11. 9 400 Strip 3 12/04/2017 Active MetFORMIN (GLUCOPHAGE) 1000 MG TabletIndications:Typ e 2 diabetes mellitus with hemoglobin A1c goal of less than 7.0% (HCC) Take 1 Tab by mouth 2 times a day. With food. 60 Tab 5 01/10/2018 Active omeprazole (PRILOSEC) 20 MG CPDR Take 1 Cap by mouth daily. 90 Cap 1 01/10/2018 Active potassium chloride ER 10 MEQ TBCRIndications:Hypok [...] 3 03/12/2018 Active Dulaglutide (TRULICITY) 1.5 MG/0.5ML SOPNIndications:Type 2 [...] urology 03/28/2018 Active traZODone (DESYREL) 50 MG TabletIndications:Sle ep disturbances Take 1 Tab by mouth at bedtime. 30 Tab 5 03/28/2018 Active levothyroxine (LEVOXYL) 150 MCG TabletIndications:Acq uired hypothyroidism Take 1 Tab by mouth daily. (at least 30 min prior to breakfast or other meds) 30 Tab 11 04/02/2018 Active Hydrocodone-Acetamino phen 10-325 MG per tabletIndications:Spi nal stenosis of lumbar region without neurogenic claudication,DDD (degenerative disc disease), lumbar,MEDICATION USE AGREEMENT take 1 tablet by mouth twice a day if needed for pain 60 Tab 0 04/09/2018 Active nadolol (CORGARD) 20 MG Tablet Take 1 Tab by mouth daily. 30 Tab 3 04/11/2018 Active cyclobenzaprine (FLEXERIL) 10 MG Tablet take 1 tablet by mouth at bedtime 30 Tab 0 04/25/2018 Active as of this encounter Active Problems [...] pain 01/24/2012 01/17/2017 Genetic Sleep Disorder Research Other*[id number] 05/13/2011 04/07/2016 Obstructive sleep apnea 01/18/2011 12/27/19 [...] 03/26/2018 Hepatitis B, 20+ yrs 04/23/2018,03/26/2018 Pneumococcal Polyvalent Vacc (Pneumovax) 06/01/2010 Seasonal Influenza, [...] Miscellaneous Notes * Telephone Encounter - Janett Petit LPN - 2018 9:05 AM EDT Patient aware and verbalized understanding * Telephone Encounter - Jesenia Santana OSA - 2018 9:04 AM EDT Reason for patient's call: returning call Caller was transferred to [facility] at the dedicated phone nurse line. * Telephone Encounter - Ludy Jara LPN - 2018 9:02 AM EDT No Mailbox set up, not able to leave message * Telephone Encounter - Rajwinder Carter DO - 05/07/2018 3:31 PM EDT At this point, nothing further necessary. If se has persistent pain, she can let me know. Any urinary symptoms? She does have a kidney stone that could be contributing to pain. * Telephone Encounter - Susan Rosales RN - 05/07/2018 11:53 AM EDT Patient notified of US results do you want anything else done * Telephone Encounter - Brianne Pal PA-C - 05/07/2018 11:19 AM EDT IMPRESSION 1. Hepatomegaly. 2. Diffuse increased echogenicity of the liver. Nonspecific finding. Fatty infiltration is a consideration among other diffuse hepatocellular processes. 3. No sonographic evidence of cholelithiasis, cholecystitis or biliary ductal dilatation. 4. Normal pancreas. 5. A 5 mm nonobstructive right renal calculus. No hydronephrosis. Not sure what the plan was that she discussed with pcp but there is nothing that requires immediateattention and she can f/u with her when she is back in the office next week Brianne Pal PA-C * Telephone Encounter - Zainab Madera, timber management assistant - 05/07/2018 9:10 AM EDT Pt calling in for results on US. If appropriate, please call Pt back at [phone]. Thank you, Zainab Madera Retail Visual Merchandiser Pharmacy Refill Call Center 05/07/2018, 9:11 AM in this encounter Plan of Treatment Upcoming Encounters Date Type Specialty Care Team Description 05/16/2018 Office Visit Family Medicine [facility] [address] [facility] [address] [phone] 06/11/2018 Office Visit [facility]ology [facility]out [facility] [address] [facility] [address] [phone] 06/11/2018 Nutrition Services [facility]astroenterology [facility] RDN [address] [facility] [address] [address] [phone] 06/13/[address] [facility] [address] [facility] [address] [phone] 08/07/2018 Office Visit Sleep Disorders Lanette Fields CRNP [address] [facility] [place] [address] [phone] [place] Nurse Sleep Disorders [address] [facility] [place] [address] [phone] 08/23/2018 Office Visit Dermatology Rachel Hill MD [address] [place] [address] [place] [address] [phone] 09/26/2018 Nurse Only Gastroenterology Dom, Gastro Chau [address] [place] [address] [phone] 12/19/2018 Office Visit Gynecology Obstetrics Irene Mujica CRNP [address] [place] [address] [phone] Health Maintenance Due Date Last Done Comments DIABETES-EYE EXAM 1973 Zoster Vaccines HMT (2 of 3) 02/03/2016 12/09/2015 Influenza Vaccine (FLU shot) (#1) 2018 07/10/2017, [...]
--- OUTSIDE RECORDS SUMMARY | 2023-05-10 23:21 | External Medical Summary | Summary of Care ---
Author Name Unknown Organization [place] [address] Phone Care Team Providers Care Lens Grinder Rough Name Role Phone Rajwinder Carter DO Primary Care Provider [phone] Reason for Visit * Reason Comments Information Encounter Details Date Type Department Care Team Description 05/16/2018 Telephone [address] [place] [address] Rajwinder Carter DO [address] [place] [address] [phone] Information Allergies Active Allergy Reactions Severity Noted [...] bedtime 30 Each 3 10/11/2017 Active nystatin 900314 UNIT/GM creamIndications:Ca ndidal vulvovaginitis Apply topically to affected area 2 times a day. To affacted area for two weeks. 15 g 2 10/12/2017 Active Blood Glucose Monitoring Suppl (Arte ManifiestoTOUCH VERIO) w/Device KITIndications:Type 2 diabetes mellitus with hemoglobin A1c goal of less than 7.0% (HCC) Use up to 4 times a day E11.9 1 Kit 0 10/17/2017 Active Glucose Blood (Arte ManifiestoTOUCH VERIO) STRP Use up to four times [...] Pen Syringe Dosing Unit 5 03/12/2018 Active furosemide (LASIX) 20 MG TabletIndications:E abelardo,Stasis dermatitis One pill by mouth once a day, as needed for edema 30 Tab 5 07/19/2017 05/18/20 18 Discontinued fexofenadine (BERNARDA) 180 MG [...] less than 7.0% ([facility]) Take 1 Tab by mouth 2 times a day. With food. 60 Tab 5 01/10/2018 05/18/20 18 Discontinued omeprazole (PRILOSEC) 20 MG CPDR Take 1 Cap by mouth daily. 90 Cap 1 01/10/2018 05/18/20 18 Discontinued potassium chloride ER 10 MEQ TBCRIndications:Hyp okalemia With food. Pt reports only taking once dailly. 60 Tab 5 02/17/2018 05/18/20 18 Discontinued cephalexin (KEFLEX) 250 MG [...] 16 Tab 0 2018 05/18/20 18 Discontinued as of this encounter Active Problems Problem Noted Date THAD on CPAP 12/26/2017 Cirrhosis of liver (HCC) 11/20/2017 History of Clostridium difficile colitis 08/29/2017 Chronic pain syndrome 01/17/2017 MEDICATION USE AGREEMENT 01/17/2017 Overview: 01/17/17 Acquired hypothyroidism 12/12/2016 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 1 10/09/2015 Obesity, morbid (more than 100 lbs over ideal weight or BMI > 40) ([facility]) 02/09/2015 Restrictive lung disease 12/10/2014 Type 2 diabetes mellitus with hemoglobin A1c goal of less than 7.0% ([facility]) 09/26/2013 Overview: ICD-10 update of inactive term [...] of 50.0 to 59.9 in adult ( [facility]) 06/12/2017 12/19/2017 Overview: Per Obesity protocol #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 7 02/13/2018 Atypical chest pain 08/19/2016 01/17/2017 Depression with anxiety 08/19/2016 02/14/20 18 Hepatic cirrhosis (HCC) 08/19/2016 03/28/20 17 Polyuria 08/09/2016 01/17/2017 Urinary frequency 08/09/2016 01/17/2017 Generalized OA 06/14/2016 03/28/2017 Body mass index (BMI) of 45.0-49.9 in adult (HCC ) 12/09/2015 01/17/2017 Overview: bmi= 48.04 12/09/15 Need for shingles vaccine 12/09/20152015 Bilateral shoulder pain 08/25/2015 06/07/20 16 Bilateral shoulder pain 07/16/2015 06/07/20 16 Cerebral palsy ([facility]) 04/23/2015 03/28/2017 Candidal vulvovaginitis 02/12/2015 06/07/20 16 [...] BMI > 40) ([facility]) 10/28/2013 01/17/2017 Overview: bmi= 53.93 10/28/13 Sleep [...] BMI > 40) ([facility]) 05/25/2012 01/17/2017 Overview: BMI= 55.27 05/25/12 Impacted [...] pain 01/24/2012 01/17/2017 Genetic Sleep Disorder Research Other*[id number] 05/13/2011 04/07/2016 Obstructive sleep apnea 01/18/2011 12/27/19 [...] encounter Miscellaneous Notes * Telephone Encounter - Ludy Jara LPN - 05/18/2018 12:13 PM EDT Faxed order Pt and pharmacy aware of other information. * Telephone Encounter - Rajwinder Carter DO - 05/18/2018 11:46 AM EDT Order signed. In Team 2 bin. Please fax. Also, please call [facility] in [place] and let them know that pt will need cyclobenzaprine, lexapro and Vicodin need to be filled in pill pack at present. * Telephone Encounter - Indy Otero OSA - 05/16/2018 1:11 PM EDT Formatting of this note may be different from the original. The following fax request has been received: Name of caller: [email or web address] Information requested to be faxed/received via fax:They received an order from this patient that was ordered back in January by Dr Matute. They need a new order. It's for a bedside table: Type of Equipment: bed side table Estimated Duration of Need: life time Associated Diagnoses Cerebral palsy, unspecified type (HCC) [G80.9] - Primary Spinal stenosis of lumbar region without neurogenic claudication [M48.061] DDD (degenerative disc disease), lumbar [M51.36] Lymphedema [I89.0] Fax to: [phone] Attention to: [email or web address] Was this information faxed previously?: yes If so, what date(s) was it faxed?: 01/23/18 If so, what number was it faxed to?: [phone] Any additional information?: in this encounter Plan of Treatment Upcoming Encounters Date Type Specialty Care Team Description 06/11/2018 Office Visit [facility]astroenterology [facility]out CR[facility] [address] [facility] [place] [address] [phone] 06/11/2018 Nutrition Services Gastroenterology Melissa Omalley RDN [address] [place] [address] [place] [address] [phone] 06/13/2018 Pharmacy Pharmacy [facility] [address] [place] [facility] [place] [address] [phone] 08/07/2018 Office Visit Sleep Disorders Lanette Fields CRNP [address] [facility] [place] [address] [phone] Nurse [place] Sleep Disorders [address] [facility] [address] [phone] 08/21/2018 Office Visit Family Medicine Rajwinder Carter DO [address] [facility] [address] [phone] 08/23/2018 Office Visit Dermatology Rachel Hill MD [address] [place] [address], [place] [address] [phone] 09/26/2018 Nurse Only Gastroenterology Nurse Anthony Fernandes [address] [place] [address] [phone] 12/19/2018 Office Visit Gynecology Obstetrics Irene Mujica CRNP [address] [place] [address] [phone] Health Maintenance Due Date Last Done Comments [...] Degeneration of lumbar or lumbosacral intervertebral disc in this encounter
--- OUTSIDE RECORDS SUMMARY | 2023-05-10 23:21 | External Medical Summary | Summary of Care ---
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 Name Role Phone Rajwinder Carter DO Primary Care Provider [phone] Reason for Visit * Reason Comments EMERGENCY DEPARTMENT FOLLOW-UP Encounter Details Date Type Department Care Team Description 04/26/2018 Office Visit [place] [address] [place] [address] Rajwinder Carter [place] [address] [phone] RUQ abdominal pain*;Cirrhosis of liver without ascites, unspecified hepatic cirrhosis type (HCC) Allergies Active Allergy Reactions Severity [...] bedtime 30 Each 3 10/11/2017 Active nystatin 287202 UNIT/GM creamIndications:Ca ndidal vulvovaginitis Apply topically to affected area 2 times a day. To affacted area for two weeks. 15 g 2 10/12/2017 Active Blood Glucose Monitoring Suppl (Buyanihan VERIO) w/Device KITIndications:Type 2 diabetes mellitus with hemoglobin A1c goal of less than 7.0% (HCC) Use up to 4 times a day E11.9 1 Kit 0 10/17/2017 Active Glucose Blood (BabyListTOUCH VERIO) STRP Use up to four times a day as directed.DX:E11 .9 400 Strip 3 12/04/2017 Active vitamin c (ASCORBIC ACID) 500 MG Tablet Take 500 mg by mouth daily. Active BD PEN NEEDLE MINI U/F 31G X 5 MMIndications:Type 2 diabetes mellitus with hemoglobin A1c goal of less than 7.0% (HCC) Use with Basaglar at bedtime. 30 Each 11 03/12/2018 Active furosemide (LASIX) 20 MG TabletIndications:E [...] than 7.0% ([facility]) Inject 24 units at bed time 5 Pre-filled Pen Syringe Dosing Unit 3 03/12/2018 05/18/20 18 Discontinued Dulaglutide (TRULICITY) 1.5 MG/0.5ML SOPNIndications:Typ e 2 diabetes mellitus with hemoglobin A1c goal of less than 7.0% ([facility]) Inject 1 syringeful once weekly 4 [...] 30 Tab 11 04/02/2018 05/18/20 18 Discontinued Hydrocodone-Acetami nophen 10-325 MG per tabletIndications:S jennifer stenosis of lumbar region without neurogenic claudication,DDD (degenerative disc disease), lumbar,MEDICATION USE AGREEMENT take 1 tablet by mouth twice a day if needed for pain 60 Tab 0 04/09/2018 05/07/20 18 Discontinued nadolol (CORGARD) 20 MG Tablet Take 1 Tab by mouth daily. 30 Tab 3 04/11/2018 05/18/20 18 Discontinued cyclobenzaprine (FLEXERIL) 10 MG Tablet take 1 tablet by mouth at bedtime 30 Tab 0 04/25/2018 05/18/20 18 Discontinued as of this encounter Active Problems Problem Noted Date THAD on CPAP 12/26/2017 Cirrhosis of liver (HCC) 11/20/2017 History of Clostridium difficile colitis 08/29/2017 Chronic pain syndrome 01/17/2017 MEDICATION USE AGREEMENT 01/17/2017 Overview: 01/17/17 Acquired hypothyroidism 12/12/2016 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 1 10/09/2015 Obesity, morbid (more than 100 lbs over ideal weight or BMI > 40) ([facility]) 02/09/2015 Restrictive lung disease 12/10/2014 Type 2 diabetes mellitus with hemoglobin A1c goal of less than 7.0% ([facility]) 09/26/2013 Overview: ICD-10 update of inactive [...] to 59.9 in adult ( [facility]) 06/12/2017 12/19/2017 Overview: Per Obesity protocol #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 7 02/13/2018 Atypical chest pain 08/19/2016 01/17/2017 Depression with anxiety 08/19/2016 06/05/20 18 Hepatic cirrhosis (HCC) 08/19/2016 03/28/20 17 Polyuria 08/09/2016 01/17/2017 Urinary frequency 08/09/2016 01/17/2017 Generalized OA 06/14/2016 03/28/2017 Body mass index (BMI) of 45.0-49.9 in adult ([facility] ) 12/09/2015 01/17/2017 Overview: bmi= 48.04 12/09/15 Need for shingles vaccine 12/09/20152015 Bilateral shoulder pain 08/25/2015 06/07/20 16 Bilateral shoulder pain 07/16/2015 06/07/20 16 Cerebral palsy ([facility]) 04/23/2015 03/28/2017 Candidal vulvovaginitis 02/12/2015 06/07/20 [...] weight or BMI > 40) ([facility]) 10/28/2013 01/17/2017 Overview: bmi= 53.93 10/28/13 [...] weight or BMI > 40) ([facility]) 05/25/2012 01/17/2017 Overview: BMI= 55.27 05/25/12 [...] pain 01/24/2012 01/17/2017 Genetic Sleep Disorder Research Other*[id number] 05/13/2011 04/07/2016 Obstructive sleep apnea 01/18/2011 12/27/19 [...] Vital Sign Reading Time Taken Blood Pressure 124/70 04/26/2018 12:53 PM EDT Pulse 88 04/26/2018 12:53 PM EDT Temperature 37.1 C (98.7 F) 04/26/2018 1 2:53 PM EDT Respiratory Rate 20 04/26/2018 12:5 3 PM EDT Oxygen Saturation - - Inhaled Oxygen Concentration - - Weight - - Height - - Body Mass Index - - in this encounter Progress Notes * Rajwinder Carter DO - 04/26/2018 1:08 PM EDT Formatting of this note may be different from the original. SUBJECTIVE: Chief Complaint Patient presents with EMERGENCY DEPARTMENT FOLLOW-UP HPI: Shaina Bustos is a 62 year old female who presents today for ED follow-up. Pt was seen in the ED on 04/19 with complaints of bilateral rib pain. CXR negative. Lab studies fairly unremarkable. EKG was noted to exhibit NSR. She was given maalox with apparent improvement in her symptoms. She was discharged to home with a diagnosis of pleurisy. Pt states that she has no pain currently. She feels that it comes and goes. She notes that it is onher sides. She feels that her right side is worse. She cannot pinpoint anything that makes it worse. She notes no change with food. She had a brief episodes of pain yesterday on the right. She has not had any pain today. She is moving her bowels well. She notes no nausea or vomiting. She is eating w ell. She feels that it has decreased in frequency since she was initially at the ED. 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 M48.061 Cerebral palsy ([facility]) G80.9 HTN, goal below 140/90 I10 Chronic rhinitis J31.0 NG (nonalcoholic steatohepatitis) K75.81 Stasis dermatitis I87.2 DDD (degenerative disc disease), lumbar M51.36 Intermittent asthma with reliever use up to twice per week J45.20 Lymphedema I89.0 Type 2 diabetes mellitus with hemoglobin A1c goal of less than 7.0% ([facility]) E11.9 Vitamin D deficiency E55.9 Restrictive lung disease J98.4 Obesity, morbid (more than 100 lbs over ideal weight or BMI > 40) ([facility]) E66.01 Dyslipidemia, goal LDL below 70 E78.5 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 R39.81 Acquired hypothyroidism E03.9 Chronic pain syndrome G89.4 MEDICATION USE AGREEMENT [id number] History of Clostridium difficile colitis Z86.19 Cirrhosis of liver ([facility]) K74.60 THAD on CPAP G47.33, Z99.89 Current Outpatient Prescriptions Medication Sig Dispense Refill BD PEN NEEDLE MINI U/F 31G X 5 MM Use with Basaglar at bedtime. 30 Each 11 vitamin c (ASCORBIC ACID) 500 MG Tablet Take 500 mg by mouth daily. Glucose Blood (Spotfav Reporting TechnologiesUCH VERIO) STRP Use up to four times a day as directed.DX:E11.9 400 Strip 3 Blood Glucose Monitoring Suppl (M[employer]) w/Device KIT Use up to 4 times a day E11.9 1 Kit 0 nystatin 010462 UNIT/GM cream Apply topically to affected area [...] TABS 1 tab daily 1 Tab 0 oxybutynin (DITROPAN) 5 MG Tablet Take 1 Tab by mouth 2 times a day. Through urology 60 Tab 5 atorvaSTATin (LIPITOR) 40 MG Tablet Take 1 Tab by mouth at bedtime. 30 Tab 5 cyclobenzaprine (FLEXERIL) 10 MG Tablet [...] by mouth at bedtime. 30 Tab 5 NEBULIZER KORTNEY as directed 1 0 Past [...] (RECTUM) 10/04/2016 normal bx, repeat 10 yrs/[facility] DENTAL SURGERY PROCEDURE NEC wisdom teeth x 4 DILATION AND CURETTAGE (D&C) EGD, FLEXIBLE, DIAGNOSTIC 10/04/2016 gastritis/[facility] EGD, FLEXIBLE, DIAGNOSTIC 01/11/2018 eso varices, retained food, repeat 1 yr/[facility] PELVIS/HIP JOINT SURGERY NEC teenager aid in walking REPAIR/GRAFT ACHILLES TENDON age 40 aid in walking Review of patient's allergies indicates: Allergen Reactions Pcn [Penicillins] Rash Family History Problem Relation Age of Onset Heart Disorder Father of [place] at age 61 Heart Disorder Mother of [place] age 72 Diabetes Father Cancer None Arthritis [...] dyspnea on exertion, No orthopnea Gastrointestinal ROS: + abdominal pain, No change in bowel habits, No nausea, vomiting, diarrhea, or constipation. As per HPI Musculoskeletal/Extremities ROS: No pain, redness or swelling on the joints Skin/Integumentary ROS: No edema, No rash and No itching OBJECTIVE: BP 124/70 | Pulse 88 | Temp (Src) 98.7 (Tympanic) | Resp 20 | Wt (0.000kg) PHYSICAL EXAM: General: alert, no distress and well nourished Head: Normocephalic, No masses, lesions, tenderness or abnormalities Heart: regular rate & rhythm, no murmurs and no gallops Lungs: chest symmetric with normal AP diameter, no chest deformities noted, no chest wall tenderness, lungs clear to auscultation Abdomen: abdomen soft, normal bowel sounds, no masses or organomegaly, some RUQ tenderness to palpation Extremities: no joint deformities, effusion, or inflammation, no edema, no cyanosis Skin: skin color, texture, turgor are normal, no rashes or significant lesions ASSESSMENT/PLAN: R10.11 Ruq abdominal pain (primary encounter diagnosis) K74.60 Cirrhosis of liver without ascites, unspecified hepatic cirrhosis type (hcc) Plan: Will check US for further evaluation. Rule out gallbladder issue as contributor to pain. Willawait results. Medical imagin. Us abdomen limited Follow-up: As needed and for routine care. Rajwinder Carter DO in this encounter Plan of Treatment Upcoming Encounters Date Type Specialty Care Team Description 06/11/2018 Office Visit Gastroenterology Lyssa Stout CRNP [address] [facility] [place] [id number] 06/11/2018 Nutrition Services Gastroenterology Melissa Omalley RDN [address] [place] [id number] 06/13/2018 [address] [address] [phone] 08/07/2018 Office Visit Sleep Disorders Lanette Fields CRNP [address] [place] [address] [phone] [place], Nurse Sleep Disorders [address] [place] [address] [phone] 08/21/2018 Office Visit Family Medicine Rajwinder Carter DO [address] [place] [address] [phone] 08/23/2018 Office Visit Dermatology Rachel Hill MD [address] [place] [address], [place] [address] [phone] 09/26/2018 Nurse Only Gastroenterology Dom, Gastro [facility] [address] [place] [address] [phone] 12/19/2018 Office Visit Gynecology Obstetrics Irene Mujica CRNP [address] [place] [address] [phone] Health Maintenance Due Date Last Done Comments [...] on fileas of this encounter Results * US ABDOMEN LIMITED (05/02/2018 11:59 AM) Specimen Performing Laborator y [facility] Impressions IMPRESSION 1. Hepatomegaly. 2. Diffuse increased echogenicity of the liver.Nonspecific finding.Fatty infiltration is a consideration among other diffuse hepatocellular processes. 3. No sonographic evidence of cholelithiasis, cholecystitis or biliary ductal dilatation. 4. Normal pancreas. 5. A 5 mm nonobstructive right renal calculus.No hydronephrosis. Narrative EXAM 05/02/2018 11:59 amUS ABDOMEN LIMITED HISTORY RUQ abdominal pain TECHNIQUE Sonographic images were obtained. COMPARISON Ultrasound abdomen limited 03/26/2018 FINDINGS LIVER: Imaged liver is diffusely increased in echogenicity without evidence of focal mass or intrahepatic biliary ductal dilatation.Liver is enlarged, measures 20.6 cm in craniocaudal dimension.Liver demonstrates smooth contour. GALLBLADDER:No evidence of gallstones or fluid in the gallbladder fossa.Gallbladder wall is not thickened.optometric technologist indicates absent sonographic Holguin's sign.Probable fold versus Phrygian cap. COMMON BILE DUCT:Normal in caliber, measures 5.6 mm in diameter. PANCREAS:No focal lesion noted. RIGHT KIDNEY: Probable 5 mm nonobstructive calculus.No hydronephrosis.Right kidney measures 12.3 cm long. Procedure Note Interface, Rad In - 05/02/2018 3:11 PM EDT EXAM 05/02/2018 11:59 amUS ABDOMEN LIMITED HISTORY RUQ abdominal pain TECHNIQUE Sonographic images were obtained. COMPARISON Ultrasound abdomen limited 03/26/2018 FINDINGS LIVER: Imaged liver is diffusely increased in echogenicity withoutevidence of focal mass or intrahepatic biliary ductal dilatation. Liveris enlarged, measures 20.6 cm in craniocaudal dimension. Liverdemonstrates smooth contour. GALLBLADDER: No evidence of gallstones or fluid in the gallbladder fossa.Gallbladder wall is not thickened. optometric technologist indicatesabsent sonographic Holguin's sign. Probable fold versus Phrygian cap. COMMON BILE DUCT: Normal in caliber, measures 5.6 mm in diameter. PANCREAS: No focal lesion noted. RIGHT KIDNEY: Probable 5 mm nonobstructive calculus. No hydronephrosis.Right kidney measures 12.3 cm long. IMPRESSION IMPRESSION 1. Hepatomegaly. 2. Diffuse increased echogenicity of the liver. Nonspecific finding.Fatty infiltration is a consideration among other diffuse hepatocellularprocesses. 3. No sonographic evidence of cholelithiasis, cholecystitis or biliaryductal dilatation. 4. Normal pancreas. 5. A 5 mm nonobstructive right renal calculus. No hydronephrosis. in this encounter Visit Diagnoses Diagnosis RUQ abdominal pain - Primary Abdominal pain, right upper quadrant Cirrhosis of liver without a scites, unspecified hepatic cirrhosis type (HCC) in this encounter"
--- OUTSIDE RECORDS SUMMARY | 2023-05-10 23:21 | External Medical Summary | Summary of Care ---
Author Name Unknown Organization [place] [address] Phone Care Team Providers Care Algebraist Name Role Phone Rajwinder Lara DO Primary Care Provider [phone] Reason for Visit * Reason Comments MEDICATION REFILL Encounter Details Date Type Department Care Team Description 05/07/[address] [address] Rajwinder Lara DO [address] [place] [address] [phone] Spinal stenosis of lumbar region without neurogenic [...] bedtime 30 Each 3 10/11/2017 Active nystatin 562571 UNIT/GM creamIndications:Ca ndidal vulvovaginitis Apply topically to [...] less than 7.0% ([facility]) Use with Basaglar at bedtime. 30 Each 11 03/12/2018 Active insulin glargine (LANTUS SOLOSTAR) 100 UNIT/ML SOPNIndications:Typ e 2 diabetes mellitus with hemoglobin A1c goal of less than 7.0% ([facility]) Inject 24 units at bed time 5 [...] 5 03/28/2018 Active levothyroxine (LEVOXYL) 150 MCG TabletIndications:A cquired hypothyroidism Take 1 Tab by mouth daily. (at least 30 min prior to breakfast or other meds) 30 Tab 11 04/02/2018 Active nadolol (CORGARD) 20 MG Tablet Take 1 Tab by mouth daily. 30 Tab 3 04/11/2018 Active cyclobenzaprine (FLEXERIL) 10 MG Tablet take 1 tablet by mouth at bedtime 30 Tab 0 04/25/2018 Active Hydrocodone-Acetami nophen 10-325 MG per tabletIndications:S jennifer stenosis of lumbar region without neurogenic claudication,DDD (degenerative disc disease), lumbar,MEDICATION USE AGREEMENT take 1 tablet by mouth twice a day if needed for pain 16 Tab 0 2018 Active Hydrocodone-Acetami nophen 10-325 MG per tabletIndications:S jennifer stenosis of lumbar region without neurogenic claudication,DDD (degenerative disc disease), lumbar,MEDICATION USE AGREEMENT take 1 tablet by mouth twice a day if needed for pain 60 Tab 0 04/09/2018 05/07/20 18 Discontinued as of this encounter Active [...] pain 01/24/2012 01/17/2017 Genetic Sleep Disorder Research Other*[id number] 05/13/2011 04/07/2016 Obstructive sleep apnea 01/18/2011 12/27/19 [...] Telephone Encounter - Vivian Izquierdo LPN - 2018 4:30 PM EDT Patient returned call. Informed of message below. Verbalized understanding. * Telephone Encounter - Kiesha Schmitt LPN - 2018 4:16 PM EDT No answer on cell and unable to leave message, mailbox is full. Called home and left message for pt to return call to triage. * Telephone Encounter - Rajwinder Lara DO - 2018 3:41 PM EDT Signed Prescriptions: Disp Refills Hydrocodone-Acetaminophen 10-325 MG per ta*16 Tab 0 Sig: take 1 tablet by mouth twice a day if needed for pain Authorizing Provider: RAJWINDER LARA * Telephone Encounter - Raul Rajwinder GloverDO - 2018 3:39 PM EDT 1. This is now the second person that has reported that the pt's niece is taking medications. 2. This is, of course, a significant problem. 3. I will refill with enough pills until our appt on 05/16 at which time we will discuss weaning the medication as I will not continue to prescribe with this being an issue. Please make pt aware. * Telephone Encounter - Jovana Lambert, UMA - 2018 1:53 PM EDT Domonique suggested Maybe a pharmacy would pill pack ? Only give 2 weeks at a time ? * Telephone Encounter - Jovana Lambert RN - 2018 1:50 PM EDT Pending Prescriptions: Disp Refills Hydrocodone-Acetaminophen 10-325 MG per t*60 Tab 0 Sig: take 1 tablet by mouth twice a day if needed for pain * Telephone Encounter - Jovana Lambert, UMA - 2018 1:45 PM EDT Spoke to Domonique The Nurse who goes in to House At discharge The nurse was reviewing pills and there should have been more pain meds then were there Patient told them her Niece helps put meds in pill boxes and she suspects takes some pain pills They asked Frida to report this but she did not want to at this time Can you advise Patient asking for refill per above * Telephone Encounter - Swapna Kasper, dining room hostess - 2018 12:35 PM EDT Pt calling to check on status of refill, advised of 48 hour rule and we are waiting for doctor to sign off on medication. Thanks, Swapna Kasper Adjunct Trainer Pharmacy Refill Call Center 2018, 12:36 PM * Telephone Encounter - Jovana Lambert, RN - 2018 8:44 AM EDT Need more information per Dr Lara The following is copied from another encounter Please call [facility] and get more information about the concern for pain Medication misuse. Domonique from [facility] is calling to let the office know that the patient is being discharge from skilled home nursing 05/04/18. Domonique still has concerns that the patient's niece is taking her pain medication, as does the patient. The patient was encouraged to call the police or the Area on Aging office about this. Domonique is suggesting the the pain medication be ordered in smaller amounts. If the office has any question they can reach Domonique at [phone] or call the office at [phone]. left a message for patient to call the office. I called the wrapper caser was on another line We can call back [phone] Ext [phone] To talk to her I needed to hang up to room patients * Telephone Encounter - Rajwinder Lara, - 05/07/2018 3:42 PM EDT Pending Prescriptions: Disp Refills Hydrocodone-Acetaminophen 10-325 MG per t*60 Tab 0 Sig: take 1 tablet by mouth twice a day if needed for pain * Telephone Encounter - Rajwinder Lara, - 05/07/2018 3:42 PM EDT See other message. I need more information from [facility] on their concern about her vicodin being stolen. * Telephone Encounter - Liz Ward [facility] - 05/07/2018 12:22 PM EDT I have reviewed the patients controlled substance dispensing history in the Prescription Drug Monitoring Program in compliance with the [facility] regulations before prescribing a controlled substance. PDMP checked on 05/07/2018. Patient requesting: HYDROCODONE-APAP 10-325MG, filled 04/09/18, for #60 for a 30 day supply. Other recent controlled medication fills: OXYCODONE-APAP 7.5-325MG, filled 01/15/18, for #60 for a 30 day supply. HYDROMET SYRUP, filled 12/19/17, for #120 for a 24 day supply. Date medication is due for refill: 05/09/18 Toxicology results: No results found. However, due to the size of the patient record, not all encounters were searched.Please check Results Review for a complete set of results. Please approve if appropriate. Liz Ward, [facility] Staff Pharmacist Refill Call Center 05/07/2018, 12:23 PM * Telephone Encounter - Zainab Madera, dining room hostess - 05/07/2018 9:08 AM EDT Formatting of this note may be different from the original. Pending Prescriptions: Disp Refills Hydrocodone-Acetaminophen 10-325 MG per t*60 Tab 0 Sig: take 1 tablet by mouth twice a day if needed for pain Last Office Visit: 04/26/2018 Next Office Visit: 05/16/2018 Scheduled Provider(s): Rajwinder Lara DO If no future appointments scheduled, and last appointment is greater than a year ago, please schedule patient for a follow-up appointment Last date the medication was ordered: 04/09/2018 Patient Phone Numbers Labs: Lab Results Component [...] Description 05/16/2018 Office Visit Family Medicine Rajwinder Lara DO [address] [place] [id number] 06/11/2018 Office Visit [facility]astroenterology [facility]out CR[facility] [place] [address] [phone] 06/11/2018 Nutrition Services Gastroenterology Melissa Omalley RDN [address] [place] [facility] [place] [address] [phone] 06/13/2018 Pharmacy Pharm[address] [address] [phone] 08/07/2018 Office Visit Sleep Disorders [facility] Fields [facility] [address] [facility] [address] [phone] [place], Nurse Sleep Disorders [address] [facility] [place] [address] [phone] 08/23/2018 Office Visit Dermatology Rachel Hill MD [address] [place] [address], [place] [address] [phone] 09/26/2018 Nurse Only Gastroenterology Dom, Nurse Gastro [facility] [address] [facility] [address] [phone] 12/19/2018 Office Visit Gynecology Obstetrics Irene Mujica CRNP [address] [facility] [place] [id number] Health Maintenance Due Date Last Done Comments [...]
--- OUTSIDE RECORDS SUMMARY | 2023-05-10 23:21 | External Medical Summary | Summary of Care ---
Author Name Unknown Organization [place] [address] Phone Care Team Providers Care Angle Shearer Name Role Phone Rajwinder Carter DO Primary Care Provider [phone] Encounter Details Date Type Department Care Team Description 04/26/2018 Documentation HEALTH & WELLNESS Rajwinder Carter DO [address] [place] [address] [id number] Allergies Active Allergy Reactions Severity Noted Date [...] bedtime 30 Each 3 10/11/2017 Active nystatin 882680 UNIT/GM creamIndications:Cand idal vulvovaginitis Apply topically to affected area 2 times a day. To affacted area for two weeks. 15 g 2 10/12/2017 Active Blood Glucose Monitoring Suppl (Mercury PuzzleIO) w/Device KITIndications:Type 2 diabetes mellitus with hemoglobin A1c goal of less than 7.0% (HCC) Use up to 4 times a day E11.9 1 Kit 0 10/17/2017 Active gabapentin (NEURONTIN) 300 MG Capsule One pill in am, one midday, two in pm, as directed, increase up to 2 capsules 3 times daily 180 Cap 5 11/16/2017 Active Glucose Blood (Amrit Advanced BiotechTOUCH VERIO) STRP Use up to four times [...] pain 01/24/2012 01/17/2017 Genetic Sleep Disorder Research Other*[id number] 05/13/2011 04/07/2016 Obstructive sleep apnea 01/18/2011 12/27/19 [...] as of this encounter Progress Notes * Kamini Mcneill, Community Health Lcac Operator - 04/26/2018 4:11 PM EDT Received referral for positive food insecurity screening, Outreach to patient to confirm results. Unable to reach patient: Left message x 1 Kamini Mcneill Medical Radio Interference Supervisor [facility] [employer] in this encounter Plan of Treatment Upcoming Encounters Date Type Specialty Care Team Description 05/02/2018 Imaging Radiology 05/16/2018 Office Visit Family Medicine Rajwinder aCrter DO [address] [place] [address] [address] [phone] 06/11/2018 Pharmacy Pharmacy [facility] [address] [facility] [place] [place] [place] [address] [phone] 06/11/2018 Office Visit Gastroenterology Lyssa Stout CRNP [address] [place] [address] [address] [phone] 06/11/2018 Nutrition Services Gastroenterology Melissa Omalley RDN [address] [place] [address] [phone] 08/07/2018 Office Visit Sleep Disorders Lanette Fields CRNP 132 [facility] [place] [address] [phone] [place], Nurse Sleep Disorders 132 [facility] [place] [id number] 08/23/2018 Office Visit Dermatology Rachel Hill MD [address] [place] [address], [place] [address] [phone] 09/26/2018 Nurse Only Gastroenterology Dom, Gastro Chau 132 [facility] [place] [address] [phone] 12/19/2018 Office Visit Gynecology Obstetrics Irene Mujica CRNP 132 [facility] [place] [address] [phone] Health Maintenance Due Date Last Done Comments [...] PNEUMOCOCCAL 19-64 MEDIUM RISK Completed 06/01/2010 *ASTHMA CONTROL TEST IN LAST 6 MONTHS-ADULT Completed 12/09/2015 *DEPRESSION SCREENING, ANNUAL FOR PTS 18 AND OVER Completed 12/09/2015, 10/20/2014 *ASTHMA ACTION PLAN-ADULT YEARLY Addressed 06/07/2016 (Discussed), 12/09/2014 Overridden with the intention of not completing the topic as of this encounter Implants Not on fileas of this encounter
--- OUTSIDE RECORDS SUMMARY | 2023-05-10 23:21 | External Medical Summary | Summary of Care ---
Author Name Unknown Organization [place] [address] Phone Care Team Providers Care Tipple Supervisor Name Role Phone Rajwinder Carter Primary Care Provider Encounter Details Date Type Department Care Team Description 04/25/2018 Scan Encounter Unspecified Department <No scans attached> [...] bedtime 30 Each 3 10/11/2017 Active nystatin 148935 UNIT/GM creamIndications:Cand idal vulvovaginitis Apply topically to affected area 2 times a day. To affacted area for two weeks. 15 g 2 10/12/2017 Active Blood Glucose Monitoring Suppl (JustSpotted VERIO) w/Device KITIndications:Type 2 diabetes mellitus with hemoglobin A1c goal of less than 7.0% (HCC) Use up to 4 times a day E11.9 1 Kit 0 10/17/2017 Active gabapentin (NEURONTIN) 300 MG Capsule One pill in am, one midday, two in pm, as directed, increase up to 2 capsules 3 times daily 180 Cap 5 11/16/2017 Active Glucose Blood ([employer].TOUCH VERIO) STRP Use up to four times [...] of less than 7.0% ([facility]) Inject 24 units at bed time 5 Pre-filled Pen Syringe Dosing Unit 3 03/12/2018 Active Dulaglutide (TRULICITY) 1.5 MG/0.5ML SOPNIndications:Type 2 diabetes mellitus with hemoglobin A1c goal of less than 7.0% ([facility]) Inject 1 syringeful once weekly [...] ideal weight or BMI > 40) (HCC) 02/09/2015 Restrictive lung disease 12/10/2014 Type 2 diabetes mellitus with hemoglobin A1c goal of less than 7.0% ([facility]) 09/26/2013 Overview: ICD-10 update of inactive term Vitamin D deficiency 09/26/2013 Lymphedema 03/11/2013 Intermittent asthma with reliever use up to twice per week 01/09/2013 Stasis dermatitis 05/07/2012 NG (nonalcoholic steatohepatitis) 04/12 HTN, goal below 140/90 03/27/2012 Chronic rhinitis 03/27/2012 Cerebral palsy ([facility]) 01/24/2012 Spinal stenosis of lumbar [...] of 50.0 to 59.9 in adult ( [facility]) 06/12/2017 12/19/2017 Overview: Per Obesity protocol #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 7 02/13/2018 Atypical chest pain 08/19/2016 01/17/2017 Depression with anxiety 08/19/2016 02/14/20 18 Hepatic cirrhosis ([facility]) 08/19/2016 03/28/20 17 Polyuria 08/09/2016 01/17/2017 Urinary frequency 08/09/2016 01/17/2017 Generalized OA 06/14/2016 03/28/2017 Body mass index (BMI) of 45.0-49.9 in adult ([facility] ) 12/09/2015 01/17/2017 Overview: bmi= 48.04 12/09/15 Need for shingles vaccine 12/09/20152015 Bilateral shoulder pain 08/25/2015 06/07/20 16 Bilateral shoulder pain 07/16/2015 06/07/20 16 Cerebral palsy ([facility]) 04/23/2015 03/28/2017 Candidal vulvovaginitis 02/12/2015 [...] over ideal weight or BMI > 40) ([facility]) 10/28/2013 01/17/2017 Overview: bmi= 53.93 [...] over ideal weight or BMI > 40) ([facility]) 05/25/2012 01/17/2017 Overview: BMI= 55.27 [...] pain 01/24/2012 01/17/2017 Genetic Sleep Disorder Research Other*[id number] 05/13/2011 04/07/2016 Obstructive sleep apnea 01/18/2011 12/27/19 [...] over ideal weight or BMI > 40) ([facility]) 12/08/2009 07/02/2014 Overview: Per Obesity [...] Encounters Date Type Specialty Care Team Description 04/26/2018 Office Visit Family Medicine Rajwinder Carter DO [address] [address] [phone] 05/16/2018 Office Visit Family Medicine Rajwinder Carter DO [address] [place] [address] [address] [phone] 06/07/2018 Office Visit Gastroenterology Lyssa Stout CRNP [address] [place] [address] [address] [phone] 06/11/2018 Pharmacy Pharmacy [facility] [address] [place] [address] [phone] 06/11/2018 Nutrition Services Gastroenterology Melissa Omalley RDN [address] [place] [address] [phone] 08/07/2018 Office Visit Sleep Disorders Lanette Fields CRNP [address] [place] [address] [address] [phone] Kentrell Nurse Sleep Disorders [address] [place] [address] [address] [phone] 08/23/2018 Office Visit Dermatology Rachel Hill MD [address] [place] [address] [phone] 09/26/2018 Nurse Only Gastroenterology Dom, Gastro Chau 132 [facility] [place] [address] [phone] 12/19/2018 Office Visit Gynecology Obstetrics Irene Mujica CRNP 132 [facility] [place] [address] [phone] Health Maintenance Due Date Last Done Comments [...]
--- OUTSIDE RECORDS SUMMARY | 2023-05-10 23:21 | External Medical Summary | Summary of Care ---
Author Name Unknown Organization [place] [address] Phone Care Team Providers Care Regional Ehs Manager Name Role Phone Rajwinder Carter Primary Care Provider Encounter Details Date Type Department Care Team Description 05/09/2018 Scan Encounter Unspecified Department <No scans attached> [...] bedtime 30 Each 3 10/11/2017 Active nystatin [id number] UNIT/GM creamIndications:Cand idal vulvovaginitis Apply topically to affected area 2 times a day. To affacted area for two weeks. 15 g 2 10/12/2017 Active Blood Glucose Monitoring Suppl (GroupStream VERIO) w/Device KITIndications:Type 2 diabetes mellitus with hemoglobin A1c goal of less than 7.0% (HCC) Use up to 4 times a day E11.9 1 Kit 0 10/17/2017 Active gabapentin (NEURONTIN) 300 MG Capsule One pill in am, one midday, two in pm, as directed, increase up to 2 capsules 3 times daily 180 Cap 5 11/16/2017 Active Glucose Blood (m2fxTOUCH VERIO) STRP Use up to four times [...] less than 7.0% ([facility]) Inject 24 units at bed time 5 Pre-filled Pen Syringe Dosing Unit 3 03/12/2018 Active Dulaglutide (TRULICITY) 1.5 MG/0.5ML SOPNIndications:Type 2 diabetes mellitus with hemoglobin A1c goal of less than 7.0% ([facility]) Inject 1 syringeful once weekly [...] at bedtime 30 Tab 0 04/25/2018 Active Hydrocodone-Acetamino phen 10-325 MG per tabletIndications:Spi nal stenosis of lumbar region without neurogenic claudication,DDD (degenerative disc disease), lumbar,MEDICATION USE AGREEMENT take 1 tablet by mouth twice a day if needed for pain 16 Tab 0 2018 Active as of this encounter Active Problems [...] than 7.0% ([facility]) 09/26/2013 Overview: ICD-10 update of inactive term Vitamin D deficiency 09/26/2013 Lymphedema 03/11/2013 Intermittent asthma with reliever use up to twice per week 01/09/2013 Stasis dermatitis 05/07/2012 NG (nonalcoholic steatohepatitis) 04/12 HTN, goal below 140/90 03/27/2012 Chronic rhinitis 03/27/2012 Cerebral palsy ([facility]) 01/24/2012 Spinal stenosis of lumbar [...] of 50.0 to 59.9 in adult ( [facility]) 06/12/2017 12/19/2017 Overview: Per Obesity protocol #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 7 02/13/2018 Atypical chest pain 08/19/2016 01/17/2017 Depression with anxiety 08/19/2016 02/14/20 18 Hepatic cirrhosis ([facility]) 08/19/2016 03/28/20 17 Polyuria 08/09/2016 01/17/2017 Urinary frequency 08/09/2016 01/17/2017 Generalized OA 06/14/2016 03/28/2017 Body mass index (BMI) of 45.0-49.9 in adult ([facility] ) 12/09/2015 01/17/2017 Overview: bmi= 48.04 12/09/15 Need for shingles vaccine 12/09/20152015 Bilateral shoulder pain 08/25/2015 06/07/20 16 Bilateral shoulder pain 07/16/2015 06/07/20 16 Cerebral palsy ([facility]) 04/23/2015 03/28/2017 Candidal vulvovaginitis 02/12/2015 [...] BMI > 40) ([facility]) 10/28/2013 01/17/2017 Overview: bmi= 53.93 [...] BMI > 40) ([facility]) 05/25/2012 01/17/2017 Overview: BMI= 55.27 [...] pain 01/24/2012 01/17/2017 Genetic Sleep Disorder Research Other*[id number] 05/13/2011 04/07/2016 Obstructive sleep apnea 01/18/2011 12/27/19 [...] BMI > 40) ([facility]) 12/08/2009 07/02/2014 Overview: Per Obesity [...] 05/16/2018 Office Visit Family Medicine Rajwinder Carter [address] [place] [address] [phone] 06/11/2018 Office Visit Gastroenterology Lyssa Stout CRNP [facility] [place] [address] [phone] 06/11/2018 Nutrition Services Gastroenterology Melissa Omalley, [place] [facility] [address] [address] [phone] 06/13/2018 Pharmacy Pharmacy [facility] [address] [place] [address] [phone] 08/07/2018 Office Visit Sleep Disorders Lanette Fields CRNP [facility] [place] [address] [phone] Kentrell Nurse Sleep Disorders [address] [place] [address] [address] [phone] 08/23/2018 Office Visit Dermatology Rachel Hill MD [address] [place] [address], [place] [address] [phone] 09/26/2018 Nurse Only Gastroenterology Dom, Gastro Chau [address] [place] [address] [address] [phone] 12/19/2018 Office Visit Gynecology Obstetrics Irene Mujica CRNP [address] [place] [address] [address] [phone] Health Maintenance Due Date Last Done Comments [...]
--- OUTSIDE RECORDS SUMMARY | 2023-05-10 23:21 | External Medical Summary | Summary of Care ---
Author Name Unknown Organization [place] [address] Phone Care Team Providers Care Cell Room Supervisor Name Role Phone Rajwinder Carter DO Primary Care Provider [phone] Reason for Visit * Reason Comments FYI Encounter Details Date Type Department Care Team Description 05/04/2018 Telephone [place] [address] [place] [address] Rajwinder Carter DO [address] [place] [address] [phone] FYI Allergies Active Allergy Reactions Severity Noted [...] bedtime 30 Each 3 10/11/2017 Active nystatin 225418 UNIT/GM creamIndications:Cand idal vulvovaginitis Apply topically to affected area 2 times a day. To affacted area for two weeks. 15 g 2 10/12/2017 Active Blood Glucose Monitoring Suppl ([employer] VERIO) w/Device KITIndications:Type 2 diabetes mellitus with hemoglobin A1c goal of less than 7.0% (HCC) Use up to 4 times a day E11.9 1 Kit 0 10/17/2017 Active gabapentin (NEURONTIN) 300 MG Capsule One pill in am, one midday, two in pm, as directed, increase up to 2 capsules 3 times daily 180 Cap 5 11/16/2017 Active Glucose Blood ([employer] GroupTOUCH VERIO) STRP Use up to four times [...] 40) ([facility]) 02/09/2015 Restrictive lung disease 12/10/2014 Type 2 diabetes mellitus with hemoglobin A1c goal of less than 7.0% ([facility]) 09/26/2013 Overview: ICD-10 update of inactive term Vitamin D deficiency 09/26/2013 Lymphedema 03/11/2013 Intermittent asthma with reliever use up to twice per week 01/09/2013 Stasis dermatitis 05/07/2012 NG (nonalcoholic steatohepatitis) 04/12 HTN, goal below 140/90 03/27/2012 Chronic rhinitis 03/27/2012 Cerebral palsy ([facility]) 01/24/2012 Spinal stenosis of lumbar region [...] 50.0 to 59.9 in adult ( [facility]) 06/12/2017 12/19/2017 Overview: Per Obesity protocol #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 7 02/13/2018 Atypical chest pain 08/19/2016 01/17/2017 Depression with anxiety 08/19/2016 02/14/20 18 Hepatic cirrhosis ([facility]) 08/19/2016 03/28/20 17 Polyuria 08/09/2016 01/17/2017 Urinary frequency 08/09/2016 01/17/2017 Generalized OA 06/14/2016 03/28/2017 Body mass index (BMI) of 45.0-49.9 in adult ([facility] ) 12/09/2015 01/17/2017 Overview: bmi= 48.04 12/09/15 Need for shingles vaccine 12/09/20152015 Bilateral shoulder pain 08/25/2015 06/07/20 16 Bilateral shoulder pain 07/16/2015 06/07/20 16 Cerebral palsy ([facility]) 04/23/2015 03/28/2017 Candidal vulvovaginitis 02/12/2015 06/07/20 [...] 40) ([facility]) 10/28/2013 01/17/2017 Overview: bmi= 53.93 10/28/13 [...] 40) ([facility]) 05/25/2012 01/17/2017 Overview: BMI= 55.27 05/25/12 [...] pain 01/24/2012 01/17/2017 Genetic Sleep Disorder Research Other*[id number] 05/13/2011 04/07/2016 Obstructive sleep apnea 01/18/2011 12/27/19 [...] encounter Miscellaneous Notes * Telephone Encounter - Jaci Bangura CPhT - 05/04/2018 1:22 PM EDT Patient called for refill on Hydrocodone / apap advised to soon can call back on MON to order Jaci Jiang Computer Network Engineer Pharmacy Refill Call Center 05/04/2018,1:23 PM * Telephone Encounter - Rajwinder Carter DO - 05/04/2018 11:09 AM EDT Please call [facility] and get more information about the concern for pain medication misuse. * Telephone Encounter - Susan Rosales RN - 05/04/2018 10:16 AM EDT FYI see below * Telephone Encounter - Susan Scott OSA - 05/04/2018 9:28 AM EDT Domonique from [facility] is calling to let the office know [...] any question they can reach Domonique at [phone] or call the office at [phone]. in this encounter Plan of Treatment Upcoming Encounters Date Type Specialty Care Team Description 05/16/2018 Office Visit Family Medicine [facility]inder Carter DO [address] [facility] [place] [address] [phone] 06/11/2018 Office Visit Gastroenterology Lyssa Stout CRNP 132 [facility] [place] [address] [phone] 06/11/2018 Nutrition Services Gastroenterology Melissa Omalley, RDN [address] [place] [id number] 06/13/2018 Pharmacy Pharmacy [facility] [address] [place] [address] [phone] 08/07/2018 Office Visit Sleep Disorders Lanette Fields CRNP [address] [facility] [place] [address] [phone] Gw, Nurse Sleep Disorders [address] [facility] [place] [address] [phone] 08/23/2018 Office Visit Dermatology Rachel Hill MD [address] [place] [address], [place] [address] [phone] 09/26/2018 Nurse Only Gastroenterology Dom, Gastro Chau [address] [facility] [place] [address] [phone] 12/19/2018 Office Visit Gynecology Obstetrics Irene Mujica CRNP [address] [facility] [place] [address] [phone] Health Maintenance Due Date Last Done Comments [...]
--- OUTSIDE RECORDS SUMMARY | 2023-05-10 23:22 | External Medical Summary | Summary of Care ---
Author Name Unknown Organization [place] [address] Phone Care Team Providers Care Tie In Machine Operator Name Role Phone Rajwinder Carter Primary Care Provider Encounter Details Date Type Department Care Team Description 04/19/2018 Scan Encounter Unspecified Department <No scans attached> [...] bedtime 30 Each 3 10/11/2017 Active nystatin 561954 UNIT/GM creamIndications:Cand idal vulvovaginitis Apply topically to affected area 2 times a day. To affacted area for two weeks. 15 g 2 10/12/2017 Active Blood Glucose Monitoring Suppl (itzbig VERIO) w/Device KITIndications:Type 2 diabetes mellitus with hemoglobin A1c goal of less than 7.0% (HCC) Use up to 4 times a day E11.9 1 Kit 0 10/17/2017 Active gabapentin (NEURONTIN) 300 MG Capsule One pill in am, one midday, two in pm, as directed, increase up to 2 capsules 3 times daily 180 Cap 5 11/16/2017 Active Glucose Blood (SellywhereTOUCH VERIO) STRP Use up to four times [...] 7.0% ([facility]) Inject 24 units at bed time 5 Pre-filled Pen Syringe Dosing Unit 3 03/12/2018 Active Dulaglutide (TRULICITY) 1.5 MG/0.5ML SOPNIndications:Type 2 diabetes mellitus with hemoglobin A1c goal of less than 7.0% (HCC) Inject 1 syringeful once weekly 4 Pre-filled Pen Syringe Dosing Unit 5 03/12/2018 Active cyclobenzaprine (FLEXERIL) 10 MG Tablet take 1 tablet by mouth at bedtime 30 Tab 0 03/26/2018 Active cephalexin (KEFLEX) 250 MG Capsule Take [...] mouth daily. 30 Tab 3 04/11/2018 Active as of this encounter Active Problems Problem Noted Date THAD on CPAP 12/26/2017 Cirrhosis of liver (HCC) 11/20/2017 History of Clostridium difficile colitis 08/29/2017 Chronic pain syndrome 01/17/2017 MEDICATION USE AGREEMENT 01/17/2017 Overview: 01/17/17 Acquired hypothyroidism 12/12/2016 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 1 10/09/2015 Restrictive lung disease 12/10/2014 Type 2 diabetes mellitus with hemoglobin A1c goal of less than 7.0% ([facility]) 09/26/2013 Overview: ICD-10 update of inactive [...] to 59.9 in adult ( [facility]) 06/12/2017 12/19/2017 Overview: Per Obesity protocol #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 7 02/13/2018 Atypical chest pain 08/19/2016 01/17/2017 Depression with anxiety 08/19/2016 02/14/20 18 Hepatic cirrhosis ([facility]) 08/19/2016 03/28/20 17 Polyuria 08/09/2016 01/17/2017 Urinary frequency 08/09/2016 01/17/2017 Generalized OA 06/14/2016 03/28/2017 Body mass index (BMI) of 45.0-49.9 in adult ([facility] ) 12/09/2015 01/17/2017 Overview: bmi= 48.04 12/09/15 Need for shingles vaccine 12/09/20152015 Bilateral shoulder pain 08/25/2015 06/07/20 16 Bilateral shoulder pain 07/16/2015 06/07/20 16 Cerebral palsy ([facility]) 04/23/2015 03/28/2017 Candidal vulvovaginitis 02/12/2015 06/07/20 16 Obesity, morbid (more than 1 00 lbs over ideal weight or BMI > 40) ([facility]) 02/09/2015 03/28/2017 THAD (obstructive sleep apnea) 02/09/2015 Leg weakness, [...] or BMI > 40) ([facility]) 10/28/2013 01/17/2017 Overview: bmi= 53.93 10/28/13 [...] or BMI > 40) ([facility]) 05/25/2012 01/17/2017 Overview: BMI= 55.27 05/25/12 [...] pain 01/24/2012 01/17/2017 Genetic Sleep Disorder Research Other*[id number] 05/13/2011 04/07/2016 Obstructive sleep apnea 01/18/2011 12/27/19 [...] or BMI > 40) ([facility]) 12/08/2009 07/02/2014 Overview: Per Obesity Taxonomy [...] Encounters Date Type Specialty Care Team Description 04/23/2018 Nurse Only Gastroenterology Dom, Nurse Anthony Ritchie [address] [place] [address] [phone] 04/23/2018 Nutrition Services Gastroenterology Melissa Omalley RDN [address] [place] [address] [place] [address] [phone] 04/26/2018 Office Visit Family Medicine Rajwinder Carter DO [address] [place] [address] [phone] 05/16/2018 Office Visit Family Medicine Rajwinder Carter DO [address] [place] [address] [phone] 06/07/2018 Office Visit Gastroenterology Lyssa Stout CRNP [address] [place] [address] [phone] 06/11/2018 Pharmacy Pharmacy [facility] [address] [place] [address] [phone] 08/07/2018 Office Visit Sleep Disorders Lanette Fields CRNP [address] [place] [address] [phone] [place], Nurse Sleep Disorders 132 [facility] [place] [address] [phone] 08/23/2018 Office Visit Dermatology Rachel Hill MD [address] [place] [address], [place] [address] [phone] 09/26/2018 Nurse Only Gastroenterology Dom, Gastro Chau [address] [place] [address] [phone] 12/19/2018 Office Visit Gynecology Obstetrics Irene Mujica CRNP [address] [place] [address] [phone] Health Maintenance Due Date Last Done Comments [...]
--- OUTSIDE RECORDS SUMMARY | 2023-05-10 23:22 | External Medical Summary | Summary of Care ---
Author Name Unknown Organization [place] [address] Phone Care Team Providers Care Survey Director Name Role Phone ArabellaRajwinder thacker Primary Care Provider [phone] Reason for Visit * Reason Comments MEDICATION ADMINISTRATION Encounter Details Date Type Department Care Team Description 04/23/2018 Nurse Only Gastroenterology, Jose [facility] [address] [facility] [place] [address] [facility] [address] [place] [address] [phone] MEDICATION ADMINISTRATION Allergies Active Allergy Reactions Severity Noted Date [...] bedtime 30 Each 3 10/11/2017 Active nystatin 196524 UNIT/GM creamIndications:Cand idal vulvovaginitis Apply topically to affected area 2 times a day. To affacted area for two weeks. 15 g 2 10/12/2017 Active Blood Glucose Monitoring Suppl (JEDI MIND VERIO) w/Device KITIndications:Type 2 diabetes mellitus with hemoglobin A1c goal of less than 7.0% (HCC) Use up to 4 times a day E11.9 1 Kit 0 10/17/2017 Active gabapentin (NEURONTIN) 300 MG Capsule One pill in am, one midday, two in pm, as directed, increase up to 2 capsules 3 times daily 180 Cap 5 11/16/2017 Active Glucose Blood (AvieonTOUCH VERIO) STRP Use up to four times [...] 140/90 03/27/2012 Chronic rhinitis 03/27/2012 Cerebral palsy ([facility]) 01/24/2012 Spinal stenosis of lumbar region without [...] of 50.0 to 59.9 in adult ( [facility]) 06/12/2017 12/19/2017 Overview: Per Obesity protocol #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 7 02/13/2018 Atypical chest pain 08/19/2016 01/17/2017 Depression with anxiety 08/19/2016 02/14/20 18 Hepatic cirrhosis ([facility]) 08/19/2016 03/28/20 17 Polyuria 08/09/2016 01/17/2017 Urinary frequency 08/09/2016 01/17/2017 Generalized OA 06/14/2016 03/28/2017 Body mass index (BMI) of 45.0-49.9 in adult ([facility] ) 12/09/2015 01/17/2017 Overview: bmi= 48.04 12/09/15 [...] pain 01/24/2012 01/17/2017 Genetic Sleep Disorder Research Other*[id number] 05/13/2011 04/07/2016 Obstructive sleep apnea 01/18/2011 12/27/19 [...] Vital Sign Reading Time Taken Blood Pressure 108/66 04/23/2018 11:01 AM EDT Pulse 76 04/23/2018 11:01 AM EDT Temperature 36.2 C (97.2 F) 04/23/2018 1 1:01 AM EDT Respiratory Rate 18 04/23/2018 11:0 1 AM EDT Oxygen Saturation 92% 04/23/2018 11: 01 AM EDT Inhaled Oxygen Concentration - - Weight - - Height - - Body Mass Index - - in this encounter Nursing Notes * Brianne Triana RN - 04/23/2018 1:19 PM EDT Formatting of this note may be different from the original. Patient identified by full name and date of Chief Complaint Patient presents with MEDICATION ADMINISTRATION Patient Identified (Ask Name/Date of ): Yes Does the patient have a fever greater than 101 degrees today? No Patient allergic to latex? No Is the patient currently taking Steroids No Has the patient ever fainted after receiving an injection? No Immunization(s) verified: Yes, Immunization Name: Hep B, VIS Sheet(s) given: Yes in this encounter Plan of Treatment Upcoming Encounters Date Type Specialty Care Team Description 04/26/2018 Office Visit Family Medicine Rajwinder Carter DO [address] [place] [address] [phone] 05/16/2018 Office Visit Family Medicine [facility]inder [facility] [address] [facility] [address] [phone] 06/07/2018 Office Visit Gastroenterology Lyssa Stout CRNP [address] [place] [address] [phone] 06/11/2018 [facility] [address] [facility] [address] [phone] 06/11/2018 Nutrition Services Gastroenterology Melissa Omalley, [place] [address] [place] [address] [facility] [place] [address] [phone] 08/07/2018 Office Visit Sleep Disorders Lanette Fields CRNP [address] [facility] [place] [address] [phone] [place], Nurse Sleep Disorders [address] [place] [address] [phone] 08/23/2018 Office Visit Dermatology Rachel Hill MD [address] [place] [address] [phone] 09/26/2018 Nurse Only Gastroenterology Dom, [facility] [address] [place] [address] [phone] 12/19/2018 Office Visit Gynecology Obstetrics Irene Mujica CRNP [address] [facility] [place] [id number] Health Maintenance Due Date Last Done Comments [...] fileas of this encounter Visit Diagnoses Diagnosis Need for vaccination for vir al hepatitis - Primary Need for prophylactic vaccination and inoculation against viral hepatitis in this encounter
--- OUTSIDE RECORDS SUMMARY | 2023-05-10 23:22 | External Medical Summary | Summary of Care ---
Author Name Unknown Organization [place] [address] Phone Care Team Providers Care Race Steward Name Role Phone Rajwinder Carter DO Primary Care Provider [phone] Reason for Visit * Reason Comments eRx-Medication Refill Encounter Details Date Type Department Care Team Description 04/24/[address] [address] Rajwinder Carter DO [address] [place] [address] [phone] Allergies Active Allergy Reactions Severity Noted Date [...] bedtime 30 Each 3 10/11/2017 Active nystatin 080919 UNIT/GM creamIndications:Ca ndidal vulvovaginitis Apply topically to affected area 2 times a day. To affacted area for two weeks. 15 g 2 10/12/2017 Active Blood Glucose Monitoring Suppl (Via optronics VERIO) w/Device KITIndications:Type 2 diabetes mellitus with [...] other meds) 30 Tab 11 04/02/2018 Active Hydrocodone-Acetami nophen 10-325 MG per tabletIndications:S [...] at bedtime 30 Tab 0 04/25/2018 Active cyclobenzaprine (FLEXERIL) 10 MG Tablet take [...] pain 01/24/2012 01/17/2017 Genetic Sleep Disorder Research Other*[id number] 05/13/2011 04/07/2016 Obstructive sleep apnea 01/18/2011 12/27/19 [...] Telephone Encounter - Brianne Lowery PA-C - 04/25/2018 12:30 PM EDT Signed Prescriptions: Disp Refills cyclobenzaprine (FLEXERIL) 10 MG Tablet 30 Tab 0 Sig: take 1 tablet by mouth at bedtime Authorizing Provider: BRIANNE LOWERY * Telephone Encounter - Jovana Lambert RN - 04/25/2018 11:39 AM EDT Pending Prescriptions: Disp Refills cyclobenzaprine (FLEXERIL) 10 MG Tablet [*30 Tab 0 Sig: take 1 tablet by mouth at bedtime * Telephone Encounter - Jovana Lambert RN - 04/25/2018 11:37 AM EDT Formatting of this note may be different from the original. FAX REFILL PROCESS: Last Office Visit: 03/28/2018 Next Office Visit: 04/26/2018 Scheduled Provider(s): Rajwinder Carter DO Date of last refill for this med: 03/26/18 PCP: Rajwinder Carter DO Patient Active Problem List Diagnosis Code Spinal [...] Chronic pain syndrome G89.4 MEDICATION USE AGREEMENT [id number] History of Clostridium difficile colitis Z86.19 Cirrhosis of liver ([facility]) K74.60 THAD on CPAP G47.33, Z99.89 LABS: CREATININE(mg/dL) [facility] Dt/Tm Resulted Value Status 02/13/18 3:27P 02/13/18 0.7 FINAL POTASSIUM(mmol/L) [place] Dt/Tm Resulted Value Status 02/13/18 3:27P 02/13/18 4.2 FINAL TSH(uIU/mL) [facility] Dt/Tm Resulted Value Status 03/28/18 4:20P 03/28/18 0.02* FINAL LDL (DIRECT MEASURE)(mg/dL) [facility] Dt/Tm Resulted Value Status 10/11/17 1:18P 10/11/17 57 FINAL 02/01/17 11:19A 02/01/17 101 FINAL ALT(U/L) [facility] Dt/Tm Resulted Value Status 02/13/18 3:27P 02/13/18 26 FINAL Hemoglobin AIC Results: HEMOGLOBIN, A1C(%) [facility] Dt/Tm Resulted Value Status 02/13/18 3:27P 02/13/18 7.1* FINAL 10/11/17 1:18P 10/11/17 6.9* FINAL 03/28/17 3:31P 03/28/17 6.6* FINAL * Telephone Encounter - Susan Rosales RN - 04/25/2018 7:46 AM EDT Pending Prescriptions: Disp Refillscyclobenzaprine (FLEXERIL) 10 MG Tablet [*30 Tab 0Sig: take 1 tablet by mouth at bedtime in this encounter Plan of Treatment Upcoming Encounters Date Type Specialty Care Team Description 04/26/2018 Office Visit Family Medicine Rajwinder Carter, DO [address] [place] [address] [address] [phone] 05/16/2018 Office Visit Family Medicine Rajwinder Carter, DO [address] [place] [address] [address] [phone] 06/07/2018 Office Visit [facility]enterology [facility] [address] [facility] [place] [address] [phone] 06/11/2018 Pharmacy Pharmacy [facility] [address] [place] [address] [phone] 06/11/2018 Nutrition Services Gastroenterology Melissa Omalley, [place] [address] [place] [address] [facility] [address] [phone] 08/07/2018 Office Visit Sleep Disorders Lanette Fields CRNP [address] [place] [address] [phone] Nurse [facility] Sleep [facility] [address] [place] [address] [phone] 08/23/2018 Office Visit Dermatology Rachel Hill MD [address] [place] [address], [place] [address] [phone] 09/26/2018 Nurse Only Gastroenterology Dom, [facility] [address] [place] [address] [phone] 12/19/2018 Office Visit Gynecology Obstetrics Irene Mujica CRNP [address] [place] [address] [phone] Health Maintenance Due Date Last Done Comments [...]
--- OUTSIDE RECORDS SUMMARY | 2023-05-10 23:22 | External Medical Summary | Summary of Care ---
Author Name Unknown Organization [place] [address] Phone Care Team Providers Care Pain Management Specialist Name Role Phone ArabellaRajwinder thacker Primary Care Provider [phone] Reason for Visit * Reason Comments Weight Management Medical Management Encounter Details Date Type Department Care Team Description 04/23/2018 Nutrition Services Nutrition & Weight Management, [facility] [address] [facility] [place] [address] Melissa Omalley RDN [address] [place] [address] Obesity, morbid (more than 100 lbs over ideal weight or BMI > 40) (HCC)*;Type 2 diabetes mellitus with hemoglobin A1c goal of less than 7.0% (HCC);HTN, goal below 140/90;Cirrhosis of liver (HCC);Lymphedema;Dysli pidemia, goal LDL below 70;Acquired hypothyroidism Allergies Active Allergy Reactions Severity Noted [...] 05/25/2012 Active furosemide (LASIX) 20 MG TabletIndications:Erickson ren,Stasis dermatitis One pill by mouth once a [...] bedtime 30 Each 3 10/11/2017 Active nystatin 517507 UNIT/GM creamIndications:Cand idal vulvovaginitis Apply topically to affected area 2 times a day. To affacted area for two weeks. 15 g 2 10/12/2017 Active Blood Glucose Monitoring Suppl (PopUp [employer]) w/Device KITIndications:Type 2 diabetes mellitus with hemoglobin A1c goal of less than 7.0% (HCC) Use up to 4 times a day E11.9 1 Kit 0 10/17/2017 Active gabapentin (NEURONTIN) 300 MG Capsule One pill in am, one midday, two in pm, as directed, increase up to 2 capsules 3 times daily 180 Cap 5 11/16/2017 Active Glucose Blood (PulsityTOUCH VERIO) STRP Use up to four times [...] [facility]) Use with Basaglar at bedtime. 30 Each 11 03/12/2018 Active insulin glargine (LANTUS SOLOSTAR) 100 UNIT/ML SOPNIndications:Type 2 diabetes mellitus with hemoglobin A1c goal of less than 7.0% ([facility]) Inject 24 units at bed time 5 Pre-filled Pen Syringe Dosing Unit 3 03/12/2018 Active Dulaglutide (TRULICITY) 1.5 MG/0.5ML SOPNIndications:Type 2 diabetes mellitus with hemoglobin A1c goal of less than 7.0% ([facility]) Inject 1 syringeful once weekly 4 [...] pain 01/24/2012 01/17/2017 Genetic Sleep Disorder Research Other*[id number] 05/13/2011 04/07/2016 Obstructive sleep apnea 01/18/2011 12/27/19 [...] Reading Time Taken Blood Pressure 108/66 04/23/2018 11:08 AM EDT Pulse 76 04/23/2018 11:08 AM EDT Temperature 36.2 C (97.2 F) 04/23/2018 1 1:08 AM EDT Respiratory Rate - - Oxygen Saturation - - Inhaled Oxygen Concentration - - Weight 117.9 kg (259 lb 14.4 oz) 2017 11:08 AM EDT Height - - Body Mass Index 52.49 04/23/2018 11:08 AM EDT in this encounter Instructions * Patient Instructions - Melissa Omalley RDN - 04/23/2018 12:03 PM EDT PATIENT GOALS: 1) Patient to continue a Low Fat Portion Controlled Diet. Patient to limit carbohydrate foods to between 3-4 servings per lis l( Lower end per meal 2 carbohydrate servings and 1-2 servings per snack.) Carbohydrate foods are from the fruit group , milk group and grain group. 2) Keep up the great job with not drinking soda and eating more whole grains in the diet. 3) Patient to do chair exercise as tolerated 2-3 times a week. 4) Continue the great job with checking blood sugars. 5) Take diuretic routinely as directed by MD. in this encounter Progress Notes * Melissa Omalley RDN - 04/23/2018 11:06 AM EDT Formatting of this note may be different from the original. GI/NUTRITION CONSULT [facility] Patient was identified at visit by name and date. PATIENT: Shaina Bustos DATE: 04/23/2018 NUTRITION ASSESSMENT Diagnosis Code for referral for [...] typical diet history/24 hr recall Breakfast: Egg [place] on whole grain bread Snacks: Sometimes not [...] Patient would like to lose 100 lbs intermediate CURRENT WT: 259.9 lbs Ht: 4'11" BMI: 52.6 WEIGHT CHANGES: Weight increased 7.9 lbs since last month 03/30/18. Nutrition Focused Edema Assessment: Bilateral Upper Extremity Edema: +2 Edema Bilateral MNT: Calorie Controlled Diet, Consistent Carbohydrate Patient is interested in the following treatment options for obesity: medical management. BARRIERS TO LEARNING: None SPECIAL EDUCATION NEEDS: None LABS: Component Latest Ref Rng & Units 03/28/2018 TSH 0.27 - 4.2 uIU/mL 0.02 (L) FREE T4 REFLEXIVE 0.9 - 1.7 ng/dL 1.99 (H) Patient taking Levoxyl as ordered by MD Component Latest Ref Rng & Units 02/13/2018 25OH VITAMIN D TOTAL >19 ng/mL 38 Component Latest Ref Rng & Units 02/13/2018 VITAMIN B12 232 - 1245 pg/mL 454 Component Latest Ref Rng & Units 02/13/2018 HEMOGLOBIN, A1C 4.0 - 6.4 % 7.1 (H) EST AVG GLUCOSE <126 MG/DL 157 (H) Patient taking Glucophage and INsulin as ordered by MD. Patient checks blood sugar levels twice a day with usual range of 111-177 mg/dl. Patient has one ortwo high readings here and there between 215-226 mg/dl. PHYSICAL ACTIVITY: Sedentary (Patient is wheel chair bound but is able to do exercises out of a chair) SUPPLEMENTS: Vitamin C PRIOR NUTRITION COUNSELING: No prior counseling DAILY ENERGY/NUTRIENT NEEDS:[id number] KCALS for wt loss DIET RECALL INDICATES: Good meal distribution Consistent carbohydrate intake Adequate fruit and vegetable intake Question hidden calories from Larger portions at times KNOWLEDGE ASSESSMENT: adequate knowledge NUTRITION DIAGNOSIS Food and nutrition related knowledge deficit in relation to calorie intake exceeding calorie expenditure as evidenced by diagnosis of Obesity. NUTRITION INTERVENTION INSTRUCTED PT ON THESE NUTRITION HANDOUTS: Healthy Food Choices, Tips for Eating Well with DM, What's in a Serving, Behavior Modification Tips and Exercise Guides PATIENT GOALS: 1) Patient to continue a Low Fat Portion Controlled Diet. Patient to limit carbohydrate foods to between 3-4 servings per lis l( Lower end per meal 2 carbohydrate servings and 1-2 servings per snack.) Carbohydrate foods are from the fruit group , milk group and grain group. 2) Keep up the great job with not drinking soda and eating more whole grains in the diet. 3) Patient to do chair exercise as tolerated 2-3 times a week. 4) Continue the great job with checking blood sugars. 5) Take diuretic routinely as directed by MD. EXPECTED OUTCOMES: Demonstrated interest in learning. Expect compliance with diet recommendations. PLAN: Patient scheduled to return in one month; dietitian phone # given for future reference. 60 minute Initial visit Melissa Omalley RDN in this encounter Nursing Notes * Alirio Corcoran LPN - 04/23/2018 11:10 AM EDT Formatting of this note may be different from the original. Pt verified identity by last name and date. Chief Complaint Patient presents with Weight Management Medical Management in this encounter Plan of Treatment Upcoming Encounters Date Type Specialty Care Team Description 04/26/2018 Office Visit Family Medicine Rajwinder Carter, DO [address] [place] [address] [address] [phone] 05/16/2018 Office Visit Family Medicine Rajwinder Carter, DO [address] [place] [address] [address] [phone] 06/07/2018 Office Visit [facility]enterology [facility] [address] [facility] [place] [address] [phone] 06/11/2018 Pharmacy Pharmacy [place] [address] [place] [address] [address] [phone] 08/07/2018 Office Visit Sleep Disorders [facility]ette Fields [facility]NP [address] [facility] [place] [address] [phone] Nurse [place] Sleep Disorders [address] [facility] [place] [address] [phone] 08/23/2018 Office Visit Dermatology Rachel Hill MD [address] [place] [address] [phone] 09/26/2018 Nurse Only Gastroenterology Nurse Dom [facility] [address] [facility] [place] [address] [phone] 12/19/2018 Office Visit Gynecology Obstetrics Irene Mujica CRNP [address] [facility] [place] [address] [phone] Scheduled Tests Name Priority Associated Diagnoses Order S chedule MED NUTRITION TX; INITIAL 15 MIN (PROVIDER) Routine Obesity, morbid (more than 100 lbs over ideal weight or BMI > 40) (HCC) Type 2 diabetes mellitus with hemoglobin A1c goal of less than 7.0% (HCC) HTN, goal below 140/90 Cirrhosis of liver (HCC) Lymphedema Dyslipidemia, goal LDL below 70 Acquired hypothyroidism Ordered: 04/23/2018 Health Maintenance Due Date Last Done Comments [...] Visit Diagnoses Diagnosis Obesity, morbid (more than 1 00 lbs over ideal weight or BMI > 40) (HCC) - Primary Morbid obesity Type 2 diabetes mellitus wit h hemoglobin A1c goal of less than 7.0% (HCC) HTN, goal below 140/90 Unspecified essential hypertension Cirrhosis of liver (HCC) Cirrhosis of liver without mention of alcohol Lymphedema Other lymphedema Dyslipidemia, goal LDL below 70 Other and unspecified hyperlipidemia Acquired hypothyroidism Unspecified hypothyroidism in this encounter
--- OUTSIDE RECORDS SUMMARY | 2023-05-10 23:22 | External Medical Summary | Summary of Care ---
Author Name Unknown Organization [place] [address] Phone Care Team Providers Care Clinical Services Professional Name Role Phone Rajwinder Carter Primary Care Provider Encounter Details Date Type Department Care Team Description 04/19/2018 Result Scan Unspecified Department <No scans attached> [...] bedtime 30 Each 3 10/11/2017 Active nystatin 713467 UNIT/GM creamIndications:Cand idal vulvovaginitis Apply topically to affected area 2 times a day. To affacted area for two weeks. 15 g 2 10/12/2017 Active Blood Glucose Monitoring Suppl ([employer] VERIO) w/Device KITIndications:Type 2 diabetes mellitus with hemoglobin A1c goal of less than 7.0% (HCC) Use up to 4 times a day E11.9 1 Kit 0 10/17/2017 Active gabapentin (NEURONTIN) 300 MG Capsule One pill in am, one midday, two in pm, as directed, increase up to 2 capsules 3 times daily 180 Cap 5 11/16/2017 Active Glucose Blood ([place] EnergyTOUCH VERIO) STRP Use up to four times [...] ([facility]) Inject 24 units at bed [...] 7.0% ([facility]) 09/26/2013 Overview: ICD-10 update of [...] of 50.0 to 59.9 in adult ( 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) 08/19/2016 03/28/20 17 Polyuria 08/09/2016 01/17/2017 Urinary frequency 08/09/2016 01/17/2017 Generalized OA 06/14/2016 03/28/2017 Body mass index (BMI) of 45.0-49.9 in adult ([facility] ) 12/09/2015 01/17/2017 Overview: bmi= 48.04 12/09/15 Need for shingles vaccine 12/09/20152015 Bilateral shoulder pain 08/25/2015 06/07/20 16 Bilateral shoulder pain 07/16/2015 06/07/20 16 Cerebral palsy ([facility]) 04/23/2015 03/28/2017 Candidal vulvovaginitis 02/12/2015 06/07/20 16 Obesity, morbid (more than 1 00 lbs over ideal weight or BMI > 40) ([facility]) 02/09/2015 03/28/2017 THAD (obstructive sleep apnea) 02/09/2015 [...] over ideal weight or BMI > 40) ([facility]) 10/28/2013 01/17/2017 Overview: bmi= 53.93 [...] over ideal weight or BMI > 40) ([facility]) 05/25/2012 01/17/2017 Overview: BMI= 55.27 [...] pain 01/24/2012 01/17/2017 Genetic Sleep Disorder Research Other*[id number] 05/13/2011 04/07/2016 Obstructive sleep apnea 01/18/2011 12/27/19 [...] over ideal weight or BMI > 40) ([facility]) 12/08/2009 07/02/2014 Overview: Per Obesity [...] Rajwinder Carter DO [address] [place] [address] [address] [phone] 05/16/2018 Office Visit Family Medicine Rajwinder Carter DO [address] [place] [address] [address] [phone] 06/07/2018 Office Visit Gastroenterology Lyssa Stout CRNP [address] [place] [address] [phone] 06/11/2018 Pharmacy Pharmacy [facility] [address] [facility] [place] [address] [phone] 08/07/2018 Office Visit Sleep Disorders Lanette Fileds CRNP [address] [place] [address] [place] Nurse Sleep Disorders [address] [place] [address] [phone] 08/23/2018 Office Visit Dermatology Rachel Hill MD [address] [place] [address], [place] [address] [phone] 09/26/2018 Nurse Only Gastroenterology Dmo, [facility] [address] [place] [address] [phone] 12/19/2018 Office Visit Gynecology Obstetrics Irene Mujica CRNP [address] [place] [address] [phone] Health Maintenance Due Date Last Done Comments [...] this encounter Results * OUTSIDE LAB RESULTS (04/19/2018) in this encounter
--- OUTSIDE RECORDS SUMMARY | 2023-05-10 23:22 | External Medical Summary | Summary of Care ---
Author Name Unknown Organization [place] [address] Phone Care Team Providers Care Meal Packer Name Role Phone Rajwinder Carter DO Primary Care Provider [phone] Encounter Details Date Type Department Care Team Description 04/20/2018 Orders Only [place] [address] [place] [address] Rajwinder Carter DO [facility] [place] [address] [phone] Allergies Active Allergy Reactions Severity Noted Date [...] bedtime 30 Each 3 10/11/2017 Active nystatin 910960 UNIT/GM creamIndications:Cand idal vulvovaginitis Apply topically to affected area 2 times a day. To affacted area for two weeks. 15 g 2 10/12/2017 Active Blood Glucose Monitoring Suppl (MesMateriauxIO) w/Device KITIndications:Type 2 diabetes mellitus with hemoglobin A1c goal of less than 7.0% (HCC) Use up to 4 times a day E11.9 1 Kit 0 10/17/2017 Active gabapentin (NEURONTIN) 300 MG Capsule One pill in am, one midday, two in pm, as directed, increase up to 2 capsules 3 times daily 180 Cap 5 11/16/2017 Active Glucose Blood (BlinkitTOUCH VERIO) STRP Use up to four times [...] less than 7.0% ([facility]) 09/26/2013 Overview: ICD-10 update of inactive term Vitamin D deficiency 09/26/2013 Lymphedema 03/11/2013 Intermittent asthma with reliever use up to twice per week 01/09/2013 Stasis dermatitis 05/07/2012 NG (nonalcoholic steatohepatitis) 04/12 HTN, goal below 140/90 03/27/2012 Chronic rhinitis 03/27/2012 Cerebral palsy ([facility]) 01/24/2012 Spinal stenosis of lumbar region without [...] of 50.0 to 59.9 in adult ( [facility]) 06/12/2017 12/19/2017 Overview: Per Obesity protocol #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 7 02/13/2018 Atypical chest pain 08/19/2016 01/17/2017 Depression with anxiety 08/19/2016 02/14/20 18 Hepatic cirrhosis ([facility]) 08/19/2016 03/28/20 17 Polyuria 08/09/2016 01/17/2017 Urinary frequency 08/09/2016 01/17/2017 Generalized OA 06/14/2016 03/28/2017 Body mass index (BMI) of 45.0-49.9 in adult ([facility] ) 12/09/2015 01/17/2017 Overview: bmi= 48.04 12/09/15 Need for shingles vaccine 12/09/20152015 Bilateral shoulder pain 08/25/2015 06/07/20 16 Bilateral shoulder pain 07/16/2015 06/07/20 16 Cerebral palsy (HCC) 04/23/2015 03/28/2017 Candidal vulvovaginitis 02/12/2015 06/07/20 16 Obesity, morbid (more than 1 00 lbs over ideal weight or BMI > 40) ([facility]) 02/09/2015 03/28/2017 THAD (obstructive sleep apnea) 02/09/2015 [...] BMI > 40) ([facility]) 10/28/2013 01/17/2017 Overview: bmi= 53.93 10/28/13 Sleep [...] BMI > 40) ([facility]) 05/25/2012 01/17/2017 Overview: BMI= 55.27 05/25/12 Impacted [...] pain 01/24/2012 01/17/2017 Genetic Sleep Disorder Research Other*[id number] 05/13/2011 04/07/2016 Obstructive sleep apnea 01/18/2011 12/27/19 [...] BMI > 40) ([facility]) 12/08/2009 07/02/2014 Overview: Per Obesity Taxonomy ICD-10 [...] Only Gastroenterology Dom, Nurse Anthony Ritchie [address] [facility] [place] [address] [phone] 04/23/2018 Nutrition Services Gastroenterology Melissa Omalley RDN [address] [facility] [address] [place] [address] [phone] 04/26/2018 Office Visit Family Medicine Rajwinder Carter DO [address] [place] [address] [phone] 05/16/2018 Office Visit Family Medicine Rajwidner Carter DO [address] [place] [address] [address] [phone] 06/07/2018 Office Visit Gastroenterology Lyssa Stout CRNP [address] [facility] [place] [address] [phone] 06/11/2018 Pharmacy Pharmacy [facility] [address] [facility] [place] [address] [phone] 08/07/2018 Office Visit Sleep Disorders Lanette Fields CRNP 132 [facility] [place] [address] [phone] Gw, Nurse Sleep Disorders [address] [facility] [place] [address] [phone] 08/23/2018 Office Visit Dermatology Rachel Hill MD [address] [place] [address] [phone] 09/26/2018 Nurse Only Gastroenterology Dom, Gastro Chau [address] [facility] [place] [address] [phone] 12/19/2018 Office Visit Gynecology Obstetrics Irene Mujica CRNP [address] [facility] [place] [address] [phone] Pending Results Name Priority Associated Diagnoses Date/Ti me XR CHEST 1 VIEW Routine 04/19/2018 1 2:00 AM EDT Health Maintenance Due Date Last [...]
--- OUTSIDE RECORDS SUMMARY | 2023-05-10 23:22 | External Medical Summary | Summary of Care ---
Author Name Unknown Organization [place] [address] Phone Care Team Providers Care Silver Miner Blasting Name Role Phone ArabellaRajwinder thacker Primary Care Provider Reason for Visit * Reason Comments MEDICATION ADMINISTRATION Encounter Details Date Type Department Care Team Description 04/23/2018 Nurse Only Gastroenterology, Jose Davidveronica [facility] 132 [facility] [place] [address] [facility] [address] [facility] [place] [address] [phone] MEDICATION ADMINISTRATION Allergies Active Allergy Reactions Severity [...] bedtime 30 Each 3 10/11/2017 Active nystatin 089729 UNIT/GM creamIndications:Cand idal vulvovaginitis Apply topically to affected area 2 times a day. To affacted area for two weeks. 15 g 2 10/12/2017 Active Blood Glucose Monitoring Suppl (Home Dialysis Plus VERIO) w/Device KITIndications:Type 2 diabetes mellitus with hemoglobin A1c goal of less than 7.0% (HCC) Use up to 4 times a day E11.9 1 Kit 0 10/17/2017 Active gabapentin (NEURONTIN) 300 MG Capsule One pill in am, one midday, two in pm, as directed, increase up to 2 capsules 3 times daily 180 Cap 5 11/16/2017 Active Glucose Blood (NXT-IDTOUCH VERIO) STRP Use up to four times [...] > 40) ([facility]) 02/09/2015 03/28/2017 THAD (obstructive sleep apnea) 02/09/2015 [...] pain 01/24/2012 01/17/2017 Genetic Sleep Disorder Research Other*[id number] 05/13/2011 04/07/2016 Obstructive sleep apnea 01/18/2011 12/27/19 [...] Mass Index - - in this encounter Plan of Treatment Upcoming Encounters Date Type Specialty Care Team Description 04/26/2018 Office Visit Family Medicine Rajwinder Carter DO [address] [place] [address] [phone] 05/16/2018 Office Visit Family Rajwinder Lopez DO [address] [place] [address] [phone] 06/07/2018 Office Visit Gastroenterology Lyssa Stout CRNP [address] [facility] [place] [address] [phone] 06/11/2018 Pharmacy Pharmacy [facility] [address] [facility] [address] [phone] 08/07/2018 Office Visit Sleep Disorders Lanette Fields CRNP [address] [facility] [address] [phone] [place], Nurse Sleep Disorders [address] [facility] [address] [phone] 08/23/2018 Office Visit Dermatology Rachel Hill MD [address] [place] [address], [place] [address] [phone] 09/26/2018 Nurse Only Gastroenterology Dom, Gastro Chau [address] [facility] [address] [phone] 12/19/2018 Office Visit Gynecology Obstetrics Irene Mujica CRNP [address] [facility] [address] [phone] Health Maintenance Due Date Last Done Comments [...]
--- OUTSIDE RECORDS SUMMARY | 2023-05-10 23:22 | External Medical Summary | Summary of Care ---
Author Name Unknown Organization [place] [address] Phone Care Team Providers Care Pie Bottomer Name Role Phone ArabellaRajwinder thacker Primary Care Provider [phone] Reason for Visit * Reason Comments Weight Management Medical Management Encounter Details Date Type Department Care Team Description 04/23/2018 Nutrition Services Nutrition & Weight Management, [facility] 132 [facility] [place] [address] Mleissa Omalley RDN [address] [place] [address] [...] bedtime 30 Each 3 10/11/2017 Active nystatin 467452 UNIT/GM creamIndications:Cand idal vulvovaginitis Apply topically to affected area 2 times a day. To affacted area for two weeks. 15 g 2 10/12/2017 Active Blood Glucose Monitoring Suppl (OneFineMeal) w/Device KITIndications:Type 2 diabetes mellitus with hemoglobin A1c goal of less than 7.0% (HCC) Use up to 4 times a day E11.9 1 Kit 0 10/17/2017 Active gabapentin (NEURONTIN) 300 MG Capsule One pill in am, one midday, two in pm, as directed, increase up to 2 capsules 3 times daily 180 Cap 5 11/16/2017 Active Glucose Blood (TripdaTOUCH VERIO) STRP Use up to four times [...] 7.0% ([facility]) Use with Basaglar at bedtime. 30 Each 11 03/12/2018 Active insulin glargine (LANTUS SOLOSTAR) 100 UNIT/ML SOPNIndications:Type 2 diabetes mellitus with hemoglobin A1c goal of less than 7.0% ([facility]) Inject 24 units at bed time 5 Pre-filled Pen Syringe Dosing Unit 3 03/12/2018 Active Dulaglutide (TRULICITY) 1.5 MG/0.5ML SOPNIndications:Type 2 diabetes mellitus with hemoglobin A1c goal of less than 7.0% ([facility]) Inject 1 syringeful once weekly 4 [...] > 40) ([facility]) 02/09/2015 Restrictive lung disease 12/10/2014 Type 2 [...] shoulder pain 07/16/2015 06/07/20 16 Cerebral palsy ([facility]) 04/23/2015 03/28/2017 Candidal vulvovaginitis 02/12/2015 06/07/20 16 [...] pain 01/24/2012 01/17/2017 Genetic Sleep Disorder Research Other*[id number] 05/13/2011 04/07/2016 Obstructive sleep apnea 01/18/2011 12/27/19 [...] be different from the original. GI/NUTRITION CONSULT [facility] Patient was identified at visit [...] typical diet history/24 hr recall Breakfast: Egg [place] on whole grain bread Snacks: Sometimes not [...] Patient would like to lose 100 lbs halfway CURRENT WT: 259.9 lbs Ht: 4'11" BMI: [...] NUTRITION COUNSELING: No prior counseling DAILY ENERGY/NUTRIENT NEEDS:[id number] KCALS for wt loss DIET RECALL INDICATES: [...] Rajwinder Carter, DO [address] [place] [address] [address] [phone] 05/16/2018 Office Visit Family Medicine Rajwinder Carter, DO [address] [place] [address] [phone] 06/07/2018 Office Visit Gastroenterology Lyssa Stout CRNP 132 [facility] [place] [address] [phone] 06/11/2018 [facility] [address] [facility] [place] [address] [phone] 06/11/2018 Nutrition Services Gastroenterology Melissa Omalley, RDN [address] [place] 230 [facility] [id number] 08/07/2018 Office Visit Sleep Disorders Lanette Fields CRNP [address] [facility] [place] [address] [phone] [place], Nurse Sleep Disorders 132 [facility] [place] [address] [phone] 08/23/2018 Office Visit Dermatology Rachel Hill MD [address] [place] [address], [place] [address] [phone] 09/26/2018 Nurse Only Gastroenterology Nurse Dom Gastro Chau 132 [facility] [place] [address] [phone] 12/19/2018 Office Visit Gynecology Obstetrics Irene Mujica CRNP [address] [facility] [place] [address] [phone] Scheduled Tests Name Priority Associated Diagnoses Order [...]
--- OUTSIDE RECORDS SUMMARY | 2023-05-10 23:22 | External Medical Summary | Summary of Care ---
Author Name Unknown Organization [place] [address] Phone Care Team Providers Care Safe And Vault Service Mechanic Name Role Phone ArabellaRajwinder thacker Primary Care Provider [phone] Reason for Visit * Reason Comments Weight Management Medical Management Encounter Details Date Type Department Care Team Description 04/23/2018 Nutrition Services Nutrition & Weight Management, [facility] 132 [facility] [place] [address] [...] bedtime 30 Each 3 10/11/2017 Active nystatin 099099 UNIT/GM creamIndications:Cand idal vulvovaginitis Apply topically to affected area 2 times a day. To affacted area for two weeks. 15 g 2 10/12/2017 Active Blood Glucose Monitoring Suppl (remocean) w/Device KITIndications:Type 2 diabetes mellitus with hemoglobin A1c goal of less than 7.0% (HCC) Use up to 4 times a day E11.9 1 Kit 0 10/17/2017 Active gabapentin (NEURONTIN) 300 MG Capsule One pill in am, one midday, two in pm, as directed, increase up to 2 capsules 3 times daily 180 Cap 5 11/16/2017 Active Glucose Blood (RSensTOUCH VERIO) STRP Use up to four times [...] less than 7.0% ([facility]) Use with Basaglar at bedtime. 30 [...] 03/27/2012 Chronic rhinitis 03/27/2012 Cerebral palsy ([facility]) 01/24/2012 Spinal stenosis of lumbar region [...] pain 07/16/2015 06/07/20 16 Cerebral palsy ([facility]) 04/23/2015 03/28/2017 Candidal vulvovaginitis 02/12/2015 06/07/20 [...] pain 01/24/2012 01/17/2017 Genetic Sleep Disorder Research Other*[id number] 05/13/2011 04/07/2016 Obstructive sleep apnea 01/18/2011 12/27/19 [...] be different from the original. GI/NUTRITION CONSULT [facility] Patient was identified at visit [...] typical diet history/24 hr recall Breakfast: Egg [place] on whole grain bread Snacks: Sometimes not [...] Patient would like to lose 100 lbs senior living CURRENT WT: 259.9 lbs Ht: 4'11" BMI: [...] GLUCOSE <126 MG/DL 157 (H) Patient taking Trulicity, Metformin and Insulin as ordered by MD. Patient checks blood glucose levels twice a day with usual range of 111-177 mg/dl. Patient has one or two high readings here and there between 215-226 mg/dl. PHYSICAL ACTIVITY: Sedentary (Patient is wheel chair bound but is able to do exercises out of a chair) SUPPLEMENTS: Vitamin C PRIOR NUTRITION COUNSELING: No prior counseling DAILY ENERGY/NUTRIENT NEEDS:3095-9384 KCALS for wt loss DIET RECALL INDICATES: [...] Rajwinder Carter, DO [address] [place] [address] [phone] 05/16/2018 Office Visit Family Medicine Rajwinder Carter DO [address] [place] [address] [phone] 06/07/2018 Office Visit Gastroenterology Lyssa Stout CRNP [address] [facility] [place] [address] [phone] 06/11/2018 Pharmacy Pharmacy [place], [facility] [address] [facility] [place] [address] [phone] 06/11/2018 Nutrition Services Gastroenterology Melissa Omalley, RDN [address] [place] [address] [facility] [id number] 08/07/2018 Office Visit Sleep Disorders Lanette Fields CRNP [address] [place] [address] [phone] [place], Nurse Sleep Disorders 132 [facility] [place] [address] [phone] 08/23/2018 Office Visit Dermatology Rachel Hill MD [address] [place] [address], [place] [address] [phone] 09/26/2018 Nurse Only Gastroenterology Nurse Dom Gastro Chau [address] [place] [address] [phone] 12/19/2018 Office Visit Gynecology Obstetrics Irene Mujica CRNP [address] [facility] [place] [address] [phone] Scheduled Tests Name Priority Associated Diagnoses Order [...]
--- OUTSIDE RECORDS SUMMARY | 2023-05-10 23:22 | External Medical Summary | Summary of Care ---
Author Name Unknown Organization [place] [address] Phone Care Team Providers Care Automation Qa Lead Name Role Phone Rajwinder Carter DO Primary Care Provider [phone] Reason for Referral * Evaluate & Treat - Unlimited Visits (Within 10 days (routine)) Status Reason Specialty Diagnoses / Procedures Referred By Contact Referred To Contact Pending Review Specialty Services Required Optometry Diagnoses DM type 2 nursing care encounter (HCC) Rajwinder Carter DO [address] [address] Reason for Visit * Reason Comments RECHECK Encounter Details Date Type Department Care Team Description 02/13/[address] [facility] [address] [facility] [place] [address] Rajwinder Carter DO [address] [place] [facility] [place] [address] [phone] Type 2 diabetes mellitus with hemoglobin A1c goal of less than 7.0% ([facility])*;DM type 2 nursing care encounter ([facility]);Cirrhosis of liver without ascites, unspecified hepatic cirrhosis type ([facility]);THOMPSON (nonalcoholic steatohepatitis);Spina l stenosis of lumbar region without neurogenic claudication;HTN, goal below 140/90;Acquired hypothyroidism;THAD on CPAP;Vitamin D deficiency;Cerebral palsy, unspecified type ([facility]);Paresthesias Allergies Active Allergy Reactions Severity Noted Date [...] bedtime 30 Each 3 10/11/2017 Active nystatin 502402 UNIT/GM creamIndications:Ca ndidal vulvovaginitis Apply topically to affected area 2 times a day. To affacted area for two weeks. 15 g 2 10/12/2017 Active Blood Glucose Monitoring Suppl (Qriket) w/Device KITIndications:Type 2 diabetes mellitus with hemoglobin A1c goal of less than 7.0% (HCC) Use up to 4 times a day E11.9 1 Kit 0 10/17/2017 Active gabapentin (NEURONTIN) 300 MG Capsule One pill in am, one midday, two in pm, as directed, increase up to 2 capsules 3 times daily 180 Cap 5 11/16/2017 Active Glucose Blood (Curaxis PharmaceuticalUCH VERIO) STRP Use up to four times a day as directed.DX:E11 .9 400 Strip 3 12/04/2017 Active MetFORMIN (GLUCOPHAGE) 1000 MG TabletIndications:T ype 2 diabetes mellitus with hemoglobin A1c goal of less than 7.0% ([facility]) Take 1 Tab by mouth [...] mouth daily. 45 Tab 5 02/17/2018 Active BETAMETHASONE VALERATE 0.1 % EX CREAIndications:Ins [...] 06/29/2016 03/28/20 18 Discontinued Vitamin D, Ergocalciferol, [address] UNITS CapsuleIndications: Vitamin D deficiency 1capsule every other week 8 Cap 6 09/27/2016 03/28/20 18 Discontinued Blood Glucose Monitoring Suppl (Swogo VERIO) W/DEVICE KITIndications:Type 2 diabetes mellitus with hemoglobin A1c goal of less than 7.0% (HCC) Use as directed. Use daily to check blood sugars DX:E11.9 1 Kit 0 01/17/2017 03/28/20 18 Discontinued Glucose Blood (SNADECTOUCH ULTRA BLUE) STRPIndications:Typ e 2 diabetes mellitus with hemoglobin A1c goal of less than 7.0% (HCC) Use as directed 4 times a day as needed for Other (Use daily to check blood sugars DX:E11.9). Use up to four times a day as directed 100 Strip 11 01/17/2017 02/14/20 18 Discontinued SNADECTOUCH ULTRASOFT LANCETS MISCIndications:Typ e 2 diabetes mellitus with hemoglobin A1c goal of less than 7.0% (HCC) Use as directed 4 times a day as needed (Use daily to check blood sugars DX:E11.9). Use up to four times a day as directed 1 Box Dosing Unit 11 01/17/2017 03/28/20 18 Discontinued busPIRone (BUSPAR) 10 MG Tablet 0 02/14/2017 03/28/20 18 Discontinued escitalopram (LEXAPRO) 10 MG Tablet Take 15 Tabs by mouth daily. 0 07/14/2017 02/14/20 18 Discontinued atenolol (TENORMIN) 25 MG Tablet Take 1 Tab by mouth at bedtime. 30 Tab 5 10/09/2017 04/11/20 18 Discontinued levothyroxine (LEVOXYL) 88 MCG Tablet Take 1 Tab by mouth daily. (at least 30 min prior to breakfast or other meds) 30 Tab 5 10/11/2017 02/24/20 18 Discontinued PredniSONE (DELTASONE) 10 MG TabletIndications:B ronchitis, complicated Take 5 tabs for 2 days, 4 tabs for 2 days, 3 tabs for 2 days, 2 tabs for 2 days 1 tab for 2 days 30 Tab 0 12/19/2017 02/14/20 18 Discontinued HYDROcodone-homatro pine (HYCODAN) 5-1.5 MG/5ML SYRPIndications:Sle ep disturbance Take 5 mL by mouth at bedtime as needed for Cough. 120 mL 0 12/19/2017 02/14/20 18 Discontinued Dulaglutide (TRULICITY) 0.75 MG/0.5ML SOPN Inject 1 syringeful once weekly 4 Pre-filled Pen Syringe Dosing Unit 5 01/01/2018 03/12/20 18 Discontinued potassium chloride ER 10 MEQ TBCRIndications:Hyp okalemia Take 1 Tab by mouth 2 times a day. With food. 60 Tab 5 01/10/2018 02/14/20 18 Discontinued traZODone (DESYREL) 50 MG TabletIndications:S leep disturbances Take 1 Tab by mouth at bedtime. 30 Tab 5 01/10/2018 03/28/20 18 Discontinued cyclobenzaprine (FLEXERIL) 10 MG Tablet Take 1 Tab by mouth at bedtime. 30 Tab 0 01/10/2018 02/16/20 18 Discontinued levothyroxine (LEVOXYL) 100 MCG Tablet Take 1 Tab by mouth daily. (at least 30 min prior to breakfast or other meds) 30 Tab 5 01/10/2018 02/24/20 18 Discontinued Hydrocodone-Acetami nophen (NORCO) 10-325 MG per tabletIndications:S jennifer stenosis of lumbar region without neurogenic claudication,DDD (degenerative disc disease), lumbar,MEDICATION USE AGREEMENT Take 1 Tab by mouth 2 times a day as needed for Pain. 60 Tab 0 01/15/2018 02/14/20 18 Discontinued insulin glargine (LANTUS SOLOSTAR) 100 UNIT/ML SOPNIndications:Typ e 2 diabetes mellitus with hemoglobin A1c goal of less than 7.0% ([facility]) Inject 24 units at bed time 5 Pre-filled Pen Syringe Dosing Unit 3 01/29/2018 03/12/20 18 Discontinued BD PEN NEEDLE MINI U/F 31G X 5 MM Use with Basaglar at bedtime. 30 Each 11 02/08/2018 03/12/20 18 Discontinued Hydrocodone-Acetami nophen (NORCO) 10-325 MG per tabletIndications:S jennifer stenosis of lumbar region without neurogenic claudication,DDD (degenerative disc disease), lumbar,MEDICATION USE AGREEMENT Take 1 Tab by mouth 2 times a day as needed for Pain. 60 Tab 0 02/13/2018 03/11/20 18 Discontinued as of this encounter Active [...] twice per week 01/09/2013 Stasis dermatitis 05/07/2012 THOMPSON (nonalcoholic steatohepatitis) 04/12 HTN, goal below 140/90 03/27/2012 Chronic rhinitis 03/27/2012 Cerebral palsy ([facility]) 01/24/2012 Spinal stenosis of lumbar [...] 08/19/2016 02/14/20 18 Hepatic cirrhosis ([facility]) 08/19/2016 03/28/20 17 Polyuria 08/09/2016 01/17/2017 Urinary frequency 08/09/2016 01/17/2017 Generalized OA 06/14/2016 03/28/2017 Body mass index (BMI) of 45.0-49.9 in adult ([facility] ) 12/09/2015 01/17/2017 Overview: bmi= 48.04 12/09/15 Need for shingles vaccine 12/09/20152015 Bilateral shoulder pain 08/25/2015 06/07/20 16 Bilateral shoulder pain 07/16/2015 06/07/20 16 Cerebral palsy ([facility]) 04/23/2015 03/28/2017 Candidal vulvovaginitis 02/12/2015 [...] pain 01/24/2012 01/17/2017 Genetic Sleep Disorder Research Other*[id number] 05/13/2011 04/07/2016 Obstructive sleep apnea 01/18/2011 12/27/19 [...] Name Dates Previously Given Next Due Pneumococcal Polyvalent Vacc (Pneumovax) 06/01/2010 Seasonal Influenza, [...] Vital Sign Reading Time Taken Blood Pressure 124/76 02/13/2018 2:38 PM EDT Pulse 88 02/13/2018 2:38 PM EDT Temperature 36.9 C (98.4 F) 02/13/2018 2 :38 PM EDT Respiratory Rate 18 02/13/2018 2:38 PM EDT Oxygen Saturation - - Inhaled Oxygen Concentration - - Weight - - Height - - Body Mass Index - - in this encounter Instructions * Patient Instructions - Shannan Bojoqruez LPN - 02/13/2018 2:42 PM EDT Dear Shaina Bustos, The care [...] Care Our Office Address and Fax Number: No primary care provider on file. [place] [id number] [facility] [address] None in this encounter Progress Notes * Rajwinder Carter DO - 02/13/2018 2:47 PM EDT Formatting of this note may be different from the original. SUBJECTIVE: Chief Complaint Patient presents with RECHECK HPI: Shaina Bustos is a 62 year old female who presents today for regular return and to establish care with me. Pt was previously seeing Dr. Matute. She has a history of bladder stones. She is going toundergo a procedure with [facility] on 02/19 to have these removed. 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 Pt follows with GI regarding THOMPSON and cirrhosis without ascites. She does see nutrition to work on weight. She is seeing sleep medicine for her THAD requiring CPAP. She has known diabetes and is following with [facility] here. Pt is chronically on vicodin for back pain as well as gabapentin. She is also on flexeril. She has a history of CP. She is able to walk a small amount. She notes that she gets easily fatigued. She spends most of her time in her wheelchair. She is on levothyroxine for hypothyroidism. She takes lexapro for depression and anxiety. She will take trazodone for insomnia at night. Pt notes some issues with her hands going numb. She notes that it will happen when she is holding certain things. She states that it does not seem to matter the position she is holding something. They will otherwise feel normal. They will not wake her up at night. 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 M48.061 Cerebral palsy (HCC) G80.9 HTN, goal below 140/90 I10 Chronic rhinitis J31.0 THOMPSON (nonalcoholic steatohepatitis) K75.81 Stasis dermatitis I87.2 DDD [...] Chronic pain syndrome G89.4 MEDICATION USE AGREEMENT [id number] History of Clostridium difficile colitis Z86.19 Cirrhosis of liver (HCC) K74.60 THAD on CPAP G47.33, Z99.89 Current Outpatient Prescriptions Medication Sig Dispense Refill escitalopram (LEXAPRO) 10 MG Tablet Take 1.5 [...] mouth daily. 90 Cap 1 Glucose Blood (Curaxis PharmaceuticalUCH VERIO) STRP Use up to four times a day as directed.DX:E11.9 400 Strip 3 gabapentin (NEURONTIN) 300 MG Capsule One pill in am, one midday, two in pm, as directed, increase up to 2 capsules 3 times daily 180 Cap 5 Blood Glucose Monitoring Suppl (Qriket) w/Device KIT Use up to 4 times a day E11.9 1 Kit 0 nystatin 453706 UNIT/GM cream Apply topically to affected area [...] Use 1 vial in nebulizer 180 mL0 atorvaSTATin (LIPITOR) 40 MG Tablet Take 1 Tab by mouth at bedtime. 90 Tab 1 fexofenadine (BERNARDA) 180 MG Tablet One pill [...] 0 NEBULIZER KORTNEY as directed 1 0 nadolol (CORGARD) 20 MG Tablet Take 1 Tab by mouth daily. 30 Tab 3 Hydrocodone-Acetaminophen 10-325 MG per tablet take 1 tablet by mouth twice a day if needed for pain 60 Tab 0 levothyroxine (LEVOXYL) 150 MCG Tablet Take 1 Tab by mouth daily. (at least 30 min prior to breakfast or other meds) 30 Tab 11 cephalexin (KEFLEX) 250 MG Capsule Take 1 [...] Tab 5 cyclobenzaprine (FLEXERIL) 10 MG Tablet take 1 tablet by mouth at bedtime 30 Tab 0 BD PEN NEEDLE MINI U/F 31G X 5 MM Use with Basaglar at bedtime. 30 Each 11 Dulaglutide (TRULICITY) 1.5 MG/0.5ML SOPN Inject 1 syringeful once weekly 4 Pre- filled Pen Syringe Dosing Unit 5 insulin glargine (LANTUS SOLOSTAR) 100 UNIT/ML SOPN Inject 24 units at bed time 5 Pre-filled Pen Syringe Dosing Unit 3 vitamin c (ASCORBIC ACID) 500 MG Tablet Take 500 mg by mouth daily. Past Medical History: Diagnosis Date Chronic pain 03/27/2012 DDD (degenerative disc disease), lumbar DM type 2, goal A1c below 7 Dyslipidemia, goal LDL below 70 Hypothyroidism 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 12/27/2010 MEDICATION USE AGREEMENT 03/27/2012 03/27/12 Myalgia and myositis 03/27/2012 THOMPSON (nonalcoholic steatohepatitis) 05/02/2012 Other specified infantile cerebral [...] Disorder Father of MA at age 61 Heart Disorder Mother of MA age 72 Diabetes Father Cancer None Arthritis [...] in vision, No eye pain, redness, discharge Ear ROS: No ear pain, No drainage, No tinnitus or vertigo and No recent change in hearing Nose ROS: No history of frequent colds or sinusitis, No nasal stuffiness Mouth/Throat ROS: No bleeding gums, No thrush or No sore throat Pulmonary ROS: No cough or sputum. No wheezing, No shortness of breath Cardiovascular ROS: No chest pain, No shortness of breath, No dyspnea on exertion, No orthopnea Gastrointestinal ROS: No abdominal pain, No change in bowel habits, No nausea, vomiting, diarrhea, or constipation Genito-Urinary Female ROS: as per HPI Musculoskeletal/Extremities ROS: as per HPI Skin/Integumentary ROS: No edema, No rash and No itching Neuro ROS: As per HPI All other systems negative except as noted. OBJECTIVE: BP 124/76 | Pulse 88 | Temp (Src) 98.4 (Tympanic) | Resp 18 | Wt (0.000kg) PHYSICAL EXAM: General: alert, no distress and well nourished Head: Normocephalic, No masses, lesions, tenderness or abnormalities Eye Exam: PERRLA, EOMI, Conjunctiva are pink and non-injected, sclera clear Ears: External ears normal, Canals clear, TM's Normal Nose: no mucosal erythema, no mucosal edema, no purulent discharge, no septal hematoma Oropharynx: no exudate, no erythema, lips, buccal mucosa, and tongue normal and mucous membranes are moist Neck: supple, no adenopathy, thyroid normal size, non-tender, without nodularity Heart: regular rate & rhythm, no murmurs and no gallops Lungs: chest symmetric with normal AP diameter, no chest deformities noted, no chest wall tenderness, lungs clear to auscultation Abdomen: abdomen soft, non-tender, normal bowel sounds and no masses or organomegaly Extremities: no cyanosis, decreased strength of bilateral LE Neuro Exam: alert & oriented x 3 with fluent speech, nearly entirely wheelchair bound Skin: skin color, texture, turgor are normal, no rashes or significant lesions Psychiatric: appropriate mood and affect ASSESSMENT/PLAN: E11.9 Type 2 diabetes mellitus with hemoglobin a1c goal of less than 7.0% (hcc) (primary encounter diagnosis) E11.9 Dm type 2 nursing care encounter ([facility]) Plan: Pt will remain on current regimen. To complete lab studies. Advised to schedule eye exam. Lab: 1. Compr metab panel Future expected: 02/13/2018 2. Hemoglobin a1c Future expected: 02/13/2018 Referral: 1. Optometry (diabetes-extended) referral op K74.60 Cirrhosis of liver without ascites, unspecified hepatic cirrhosis type (hcc) K75.81 Thompson (nonalcoholic steatohepatitis) Plan: Pt will complete lab studies. Lab: 1. Cbc/diff Future expected: 02/13/2018 2. Acute hepatitis panel Future expected: 02/13/2018 M48.061 Spinal stenosis of lumbar region without neurogenic claudication Plan: Complicated by her CP. Continue on current regimen. I10 Htn, goal below 140/90 Plan: BP controlled. Continue on current regimen. E03.9 Acquired hypothyroidism Plan: Continue on current regimen. Check TSH. Lab: 1. Tsh w/ft4 if tsh is indicated Future expected: 02/13/2018 G47.33, Z99.89 Thad on cpap Plan: Pt encouraged to wear her CPAP regularly. E55.9 Vitamin d deficiency Plan: Pt will complete lab studies. Lab: 1. 25-hydroxy vitamin d Future expected: 02/13/2018 G80.9 Cerebral palsy, unspecified type (hcc) Plan: Pt nearly entirely wheelchair bound. Suspect contributor to a number of her issues. R20.2 Paresthesias Plan: Pt will complete lab studies. Consider EMG. Lab: 1. Vitamin b12 Future expected: 02/13/2018 2. Magnesium Future expected: 02/13/2018 M51.36 Ddd (degenerative disc disease), lumbar [id number] Medication use agreement Plan: [place] 10-325mg one tablet twice daily E87.6 Hypokalemia Plan: Refill sent. Medications: 1. Potassium chloride er 10 meq po tbcr Sig:With food. pt reports only taking once dailly. Follow up: Return in about 6 weeks (around 03/27/2018) for 40 min recheck. Rajwinder Carter DO * Shannan Bojorquez LPN - 02/13/2018 2:42 PM EDT The importance of having a yearly diabetic eye exam has been discussed with patient. Order and Referral placed along with patient instructions. Provider made aware. Shannan Bojorquez LPN in this encounter Plan of Treatment Upcoming Encounters Date Type Specialty Care Team Description 04/26/2018 Office Visit Family Medicine Rajwinder Carter DO [address] [address] [phone] 05/16/2018 Office Visit Family Medicine Rajwinder Carter DO [address] [address] [phone] 06/07/2018 Office Visit Gastroenterology Lyssa Stout CRNP [address] [address] [phone] 06/11/2018 Pharmacy Pharmacy [facility] [address] [facility] [address] [address] [address] [phone] 06/11/2018 Nutrition Services Gastroenterology Melissa Omalley RDN [address] [facility] [address] [address] 08/07/2018 Office Visit Sleep Disorders Lanette Fields CRNP [address] [address] [phone] Gw, Nurse Sleep Disorders [address] [facility] [address] [address] [address] [phone] 08/23/2018 Office Visit Dermatology Rachel Hill MD [address] [place] [address], [place] [address] [phone] 09/26/2018 Nurse Only Gastroenterology Dom, Gastro Chau [address] [facility] [place] [address] [phone] 12/19/2018 Office Visit Gynecology Obstetrics Irene Mujica CRNP [address] [facility] [address] [address] [phone] Scheduled Referrals Name Priority Associated Diagnoses Order S chedule OPTOMETRY (DIABETES-EXTENDED) REFERRAL OP Within 10 days (routine) DM type 2 nursing care encounter (HCC) Ordered: 02/13/2018 Health Maintenance Due Date Last Done Comments [...] on fileas of this encounter Results * MYCODE INITIAL ADULT (02/13/2018 3:28 PM) Component Value Ref Range MYCODE INITIAL SPECIMEN OBTAINED Specimen Performing Laborator y [facility] [address] [place] [address] * 25-HYDROXY VITAMIN D (02/13/2018 3:27 PM) Component Value Ref Range 25OH VITAMIN D TOTAL 38 Comment: Deficient:<20 ng/mL Insufficient: 20-29 ng/mL Recommended/Optimum:30-50 ng/mL Vitamin D intoxication is rare. If suspicious of Vitamin D toxicity, evaluation of serum Calcium and PTH is recommended. >19 ng/mL Specimen Performing Laborator y [facility] [address] [place] [address] * MAGNESIUM (02/13/2018 3:27 PM) Component Value Ref Range MAGNESIUM 1.9 1.5 - 2.6 mg/dL Specimen Performing Laborator y [facility] [address] [place] [address] * VITAMIN B12 (02/13/2018 3:27 PM) Component Value Ref Range VITAMIN B12 454 232 - 1245 pg/mL Specimen Performing [facility] [address] [place] [address] * ACUTE HEPATITIS PANEL (02/13/2018 3:27 PM) Component Value Ref Range HEP A AB IGM NEGATIVE NEG HEP B CORE AB IGM NEGATIVE NEG HEP B SURFACE AG NEGATIVE NEG HEPATITIS C ANTIBODY NEGATIVE NEG Specimen Performing Laborator [facility] [address] [place] [address] * CBC/DIFF (02/13/2018 3:27 PM) Component Value Ref Range WBC 3.13(L) 4.00 - 10.80 K/u L RBC 3.86 3.85 - 5.15 M/uL HGB 11.6(L) 12.0 - 15.3 g/dL HCT 36.4 36.0 - 45.2 % MCV 94.3 81.5 - 97.5 fL MCH 30.1 27.0 - 34.0 pg MCHC 31.9(L) 32.0 - 36.0 g/dL RDW 15.4 11.5 - 15.5 % PLATELET COUNT 100(L) 140 - 400 K/uL MPV 13.5(H) 6.6 - 11.1 fL NEUTS 49.0 40 - 75 % LYMPHS 28.4 18 - 42 % MONOS 10.5 1 - 11 % EOS 10.5(H) 0 - 6 % BASOS 1.3 0 - 2 % IMMATURE GRANULOCYTE 0.3 0 - 2 % ABS. NEUTS 1.53(L) 1.8 - 7.7 K/uL ABS. LYMPHS 0.89(L) 1.0 - 4.8 K/uL ABS. MONOS 0.33 0.0 - 1.1 K/uL ABS. EOS 0.33 0.0 - 0.7 K/uL ABS. BASOS 0.04 0.0 - 0.2 K/uL ABSOLUTE IMMATURE GRANULOCYTES 0.01 0 .0 - 0.2 K/uL Specimen Performing Laborator y [facility] [address] [place] [address] * HEMOGLOBIN A1C (02/13/2018 3:27 PM) Component Value Ref Range HEMOGLOBIN, A1C 7.1(H) Comment: The use of HbA1c to monitor glycemic status is based on normal hemoglobin and HbA composition. This test should not be used in patients with abnormal hemoglobin that affects the half life of the red blood cell or the in vivo glycation rates. 4.0 - 6.4 % EST AVG GLUCOSE 157(H) <126 MG/DL Specimen Performing Laborator y [facility] [address] [place] [address] * COMPR METAB PANEL (02/13/2018 3:27 PM) Component Value Ref Range BUN 11 6 - 20 mg/dL CREATININE 0.7 Comment: GFR should be used to assess renal function.Plasma/Serum creatinine may not be able to properly reflect renal function in some cases. 0.5 - 1.0 mg/dL SODIUM 147(H) 135 - 146 mmol/L POTASSIUM 4.2 3.5 - 5.1 mmol/L CHLORIDE 108(H) 98 - 107 mmol/L CO2 27 22 - 32 mmol/L ANION GAP 12 7 - 15 mmol/L GLUCOSE 100 70 - 120 mg/dL ALBUMIN 4.2 3.8 - 5.0 g/dL AST 29 10 - 35 U/L ALKALINE PHOSPHATASE 111 0 - 153 U/L BILIRUBIN, TOTAL 0.6 0 - 1.2 mg/dL CALCIUM 9.3 8.4 - 10.2 mg/dL PROTEIN 6.9 6.0 - 8.3 g/dL ALT 26 10 - 35 U/L E GLOM FILT RATE >60.0Comment:If agustin ent is , multiply estimated GFR by 1.159. >60 Specimen Performing Laborator y [facility] [address] [place] [address] * TSH W/FT4 IF TSH IS INDICATED (02/13/2018 3:27 PM) Component Value Ref Range TSH 0.01(L) 0.27 - 4.2 uIU/m L FREE T4 REFLEXIVE 2.04(H) 0.9 - 1.7 ng/d L Specimen Performing Laborator y [facility] [address] [place] [address] in this encounter Visit Diagnoses Diagnosis Type 2 diabetes mellitus wit h hemoglobin A1c goal of less than 7.0% (HCC) - Primary DM type 2 nursing care encou nter (HCC) Type II or unspecified type diabetes mellitus without mention of complication, not stated as uncontrolled Cirrhosis of liver without a scites, unspecified hepatic cirrhosis type (HCC) THOMPSON (nonalcoholic steatohep atitis) Other chronic nonalcoholic liver disease Spinal stenosis of lumbar re gion without neurogenic claudication Spinal stenosis, lumbar region, without neurogenic claudication HTN, goal below 140/90 Unspecified essential hypertension Acquired hypothyroidism Unspecified hypothyroidism THAD on CPAP Obstructive sleep apnea (adult) (pediatric) Vitamin D deficiency Unspecified vitamin D deficiency Cerebral palsy, unspecified type (HCC) Paresthesias Disturbance of skin sensation DDD (degenerative disc disea se), lumbar Degeneration of lumbar or lumbosacral intervertebral disc MEDICATION USE AGREEMENT Hypokalemia Hypopotassemia MYCODE RESEARCH OTHER*[id number] in this encounter"
--- OUTSIDE RECORDS SUMMARY | 2023-05-10 23:23 | External Medical Summary | Summary of Care ---
Author Name Unknown Organization [place] [address] Phone Care Team Providers Care Church Administrator Name Role Phone Rajwinder Carter DO Primary Care Provider [phone] Reason for Visit * Reason Comments EMERGENCY DEPARTMENT FOLLOW-UP Encounter Details Date Type Department Care Team Description 04/19/2018 Telephone [place] [address] [place] [address] Rajwinder Carter DO [address] [place] [address] [phone] EMERGENCY DEPARTMENT FOLLOW-UP Allergies Active Allergy Reactions [...] 0 05/25/2012 Active furosemide (LASIX) 20 MG TabletIndications:Reickson ma,Stasis dermatitis One pill by mouth once [...] bedtime 30 Each 3 10/11/2017 Active nystatin 585926 UNIT/GM creamIndications:Cand idal vulvovaginitis Apply topically to affected area 2 times a day. To affacted area for two weeks. 15 g 2 10/12/2017 Active Blood Glucose Monitoring Suppl (30 Second Showcase) w/Device KITIndications:Type 2 diabetes mellitus with hemoglobin A1c goal of less than 7.0% (HCC) Use up to 4 times a day E11.9 1 Kit 0 10/17/2017 Active gabapentin (NEURONTIN) 300 MG Capsule One pill in am, one midday, two in pm, as directed, increase up to 2 capsules 3 times daily 180 Cap 5 11/16/2017 Active Glucose Blood (TheracosTOUCH VERIO) STRP Use up to four times [...] than 7.0% ([facility]) 09/26/2013 Overview: ICD-10 update of inactive term Vitamin D deficiency 09/26/2013 Lymphedema 03/11/2013 Intermittent asthma with reliever use up to twice per week 01/09/2013 Stasis dermatitis 05/07/2012 NG (nonalcoholic steatohepatitis) 04/12 HTN, goal below 140/90 03/27/2012 Chronic rhinitis 03/27/2012 Cerebral palsy ([facility]) 01/24/2012 Spinal stenosis of lumbar [...] to 59.9 in adult ( [facility]) 06/12/2017 12/19/2017 Overview: Per Obesity protocol #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 7 02/13/2018 Atypical chest pain 08/19/2016 01/17/2017 Depression with anxiety 08/19/2016 02/14/20 18 Hepatic cirrhosis ([facility]) 08/19/2016 03/28/20 17 Polyuria 08/09/2016 01/17/2017 Urinary frequency 08/09/2016 01/17/2017 Generalized OA 06/14/2016 03/28/2017 Body mass index (BMI) of 45.0-49.9 in adult ([facility] ) 12/09/2015 01/17/2017 Overview: bmi= 48.04 12/09/15 Need for shingles vaccine 12/09/20152015 Bilateral shoulder pain 08/25/2015 06/07/20 16 Bilateral shoulder pain 07/16/2015 06/07/20 16 Cerebral palsy ([facility]) 04/23/2015 03/28/2017 Candidal vulvovaginitis 02/12/2015 06/07/20 16 Obesity, morbid (more than 1 00 lbs over ideal weight or BMI > 40) ([facility]) 02/09/2015 03/28/2017 THAD (obstructive sleep [...] weight or BMI > 40) ([facility]) 10/28/2013 01/17/2017 Overview: bmi= 53.93 [...] weight or BMI > 40) ([facility]) 05/25/2012 01/17/2017 Overview: BMI= 55.27 [...] pain 01/24/2012 01/17/2017 Genetic Sleep Disorder Research Other*[id number] 05/13/2011 04/07/2016 Obstructive sleep apnea 01/18/2011 12/27/19 [...] Telephone Encounter - Shelly Hirsch LPN - 04/19/2018 4:59 PM EDT Patient is calling. Went to [facility] for pains in her left and right sides. Placed with Dr. June 04/26 at 1 p.m. * Telephone Encounter - Silvia Patten OSA - 04/19/2018 4:42 PM EDT Reason for patient's call: er follow up Caller was transferred to [place] at the dedicated phone nurse line. Pt hung up during transfer. Pt still in the er currently. in this encounter Plan of Treatment Upcoming Encounters Date Type Specialty Care Team Description 04/23/2018 Nurse Only Gastroenterology Nurse Anthony Fernandes [address] [place] [address] 04/23/2018 Nutrition Services Gastroenterology Melissa Omalley RDN [address] [place] [address] 04/26/2018 Office Visit Family Medicine Rajwinder Carter DO [address] [place] [address] [phone] 05/16/2018 Office Visit Family Medicine [facility] [address] [facility] [place] [address] [phone] 06/07/2018 Office Visit Gastroenterology Lyssa Stout CRNP [address] [facility] [place] [address] [phone] 06/11/2018 [facility]acy [facility] [address] [facility] [address] [phone] 08/07/2018 Office Visit [facility] Disorders [facility] [place] [address] [phone] [place], Nurse Sleep Disorders [address] [facility] [place] [address] [phone] 08/23/2018 Office Visit Dermatology Rachel Hill MD [address] [place] [address], [place] [address] [phone] 09/26/2018 Nurse Only Gastroenterology Dom, Nurse Gastro Chau [address] [facility] [place] [address] [phone] 12/19/2018 Office Visit Gynecology Obstetrics Irene Mujica CRNP [address] [facility] [place] [address] [phone] Health Maintenance Due Date Last Done Comments [...]
--- OUTSIDE RECORDS SUMMARY | 2023-05-10 23:23 | External Medical Summary | Summary of Care ---
Author Name Unknown Organization [place] [address] Phone Care Team Providers Care Director Of Perioperative Services Name Role Phone Rajwinder Carter Primary Care Provider Encounter Details Date Type Department Care Team Description 04/06/2018 Scan Encounter Unspecified Department <No scans attached> [...] in nebulizer 180 mL 0 10/09/2017 Active atenolol (TENORMIN) 25 MG Tablet Take 1 Tab by mouth at bedtime. 30 Tab 5 10/09/2017 Active fluticasone (FLONASE) 50 MCG/ACT nasal sprayIndications:Sinu s congestion Administer 2 Sprays into each nostril daily. 1 Inhaler 5 10/11/2017 Active Insulin Pen Needle 31G X 6 MM MISCIndications:Type 2 diabetes mellitus with hemoglobin A1c goal of less than 7.0% (HCC) Use with Lantus Solostar at bedtime 30 Each 3 10/11/2017 Active nystatin 822076 UNIT/GM creamIndications:Cand idal vulvovaginitis Apply topically to affected area 2 times a day. To affacted area for two weeks. 15 g 2 10/12/2017 Active Blood Glucose Monitoring Suppl ([employer] VERIO) w/Device KITIndications:Type 2 diabetes mellitus with hemoglobin A1c goal of less than 7.0% (HCC) Use up to 4 times a day E11.9 1 Kit 0 10/17/2017 Active gabapentin (NEURONTIN) 300 MG Capsule One pill in am, one midday, two in pm, as directed, increase up to 2 capsules 3 times daily 180 Cap 5 11/16/2017 Active Glucose Blood (ZmandaTOUCH VERIO) STRP Use up to four times [...] Take 500 mg by mouth daily. Active Hydrocodone-Acetamino phen 10-325 MG per tabletIndications:Spi nal stenosis of lumbar region without neurogenic claudication,DDD (degenerative disc disease), lumbar,MEDICATION USE AGREEMENT take 1 tablet by mouth twice a day if needed for pain 60 Tab 0 03/12/2018 Active BD PEN NEEDLE MINI U/F 31G X 5 MMIndications:Type 2 diabetes mellitus with hemoglobin A1c goal of less than 7.0% ([facility]) Use with Basaglar at bedtime. 30 Each 11 03/12/2018 Active insulin glargine (LANTUS SOLOSTAR) 100 UNIT/ML SOPNIndications:Type 2 diabetes mellitus with hemoglobin A1c goal of less than 7.0% ([facility]) Inject 24 units at bed time 5 Pre-filled Pen Syringe Dosing Unit 3 03/12/2018 Active Dulaglutide (TRULICITY) 1.5 MG/0.5ML SOPNIndications:Type 2 diabetes mellitus with hemoglobin A1c goal of less than 7.0% ([facility]) Inject 1 syringeful once weekly 4 Pre-filled [...] at bedtime. 30 Tab 5 03/28/2018 Active citalopram (CELEXA) 40 MG Tablet Take 1 Tab by mouth daily. 0 03/26/2018 Active levothyroxine (LEVOXYL) 150 MCG TabletIndications:Acq uired hypothyroidism Take 1 Tab by mouth daily. (at least 30 min prior to breakfast or other meds) 30 Tab 11 04/02/2018 Active as of this encounter Active Problems [...] of less than 7.0% ([facility]) 09/26/2013 Overview: ICD-10 update of inactive term Vitamin D deficiency 09/26/2013 Lymphedema 03/11/2013 Intermittent asthma with reliever use up to twice per week 01/09/2013 Stasis dermatitis 05/07/2012 NG (nonalcoholic steatohepatitis) 04/12 HTN, goal below 140/90 03/27/2012 Chronic rhinitis 03/27/2012 Cerebral palsy ([facility]) 01/24/2012 Spinal stenosis of lumbar region without [...] to 59.9 in adult ( [facility]) 06/12/2017 12/19/2017 Overview: Per Obesity protocol #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 7 02/13/2018 Atypical chest pain 08/19/2016 01/17/2017 Depression with anxiety 08/19/2016 02/14/20 18 Hepatic cirrhosis ([facility]) 08/19/2016 03/28/20 17 Polyuria 08/09/2016 01/17/2017 Urinary frequency 08/09/2016 01/17/2017 Generalized OA 06/14/2016 03/28/2017 Body mass index (BMI) of 45.0-49.9 in adult ([facility] ) 12/09/2015 01/17/2017 Overview: bmi= 48.04 12/09/15 Need for shingles vaccine 12/09/20152015 Bilateral shoulder pain 08/25/2015 06/07/20 16 Bilateral shoulder pain 07/16/2015 06/07/20 16 Cerebral palsy ([facility]) 04/23/2015 03/28/2017 Candidal vulvovaginitis 02/12/2015 06/07/20 16 Obesity, morbid (more than 1 00 lbs over ideal weight or BMI > 40) ([facility]) 02/09/2015 03/28/2017 THAD (obstructive sleep apnea) 02/09/2015 [...] weight or BMI > 40) ([facility]) 10/28/2013 01/17/2017 Overview: bmi= 53.93 10/28/13 Sleep [...] weight or BMI > 40) ([facility]) 05/25/2012 01/17/2017 Overview: BMI= 55.27 05/25/12 Impacted [...] pain 01/24/2012 01/17/2017 Genetic Sleep Disorder Research Other*[id number] 05/13/2011 04/07/2016 Obstructive sleep apnea 01/18/2011 12/27/19 [...] Encounters Date Type Specialty Care Team Description 04/11/2018 Office Visit Gastroenterology Lyssa Stout CRNP [address] [place] [address] [phone] 04/23/2018 Nutrition Services Gastroenterology Melissa Omalley, RDN [address] [facility] [address] [place] [address] [phone] 05/16/2018 Office Visit Family Medicine Rajwinder Carter DO [address] [place] [address] [phone] 06/07/2018 Office Visit Gastroenterology Lyssa Stout CRNP [address] [place] [address] [phone] 06/11/2018 Pharmacy Pharmacy [place] [address] [place] [address] [phone] 08/07/2018 Office Visit Sleep Disorders Lanette Fields CRNP [address] [place] [address] [phone] [place] Nurse Sleep Disorders [address] [place] [address] [phone] 08/23/2018 Office Visit Dermatology Rachel Hill MD [address] [place] [address], [place] [address] [phone] 09/26/2018 Nurse Only Gastroenterology Dom, Gastro Chau [address] [place] [address] [phone] 12/19/2018 Office Visit Gynecology Obstetrics Irene Mujica CRNP [address] [place] [address] [phone] Health Maintenance Due Date Last Done Comments [...] PNEUMOCOCCAL 19-64 MEDIUM RISK Completed 06/01/2010 *DEPRESSION SCREENING, ANNUAL FOR PTS 18 AND OVER Completed 12/09/2015, 10/20/2014 *ASTHMA ACTION PLAN-ADULT YEARLY Addressed 06/07/2016 (Discussed), 12/09/2014 Overridden with the intention of not completing the topic as of this encounter Implants Not on fileas of this encounter
--- OUTSIDE RECORDS SUMMARY | 2023-05-10 23:23 | External Medical Summary | Summary of Care ---
Author Name Unknown Organization [place] [address] Phone Care Team Providers Care Felled Seam Operator Name Role Phone Rajwinder Carter DO Primary Care Provider [phone] Encounter Details Date Type Department Care Team Description 04/06/2018 Orders Only [place] [address] [place] [address] Rajwinder Carter DO [facility] [place] [address] [phone] Allergies Active Allergy Reactions Severity Noted Date [...] bedtime 30 Each 3 10/11/2017 Active nystatin 598728 UNIT/GM creamIndications:Cand idal vulvovaginitis Apply topically to affected area 2 times a day. To affacted area for two weeks. 15 g 2 10/12/2017 Active Blood Glucose Monitoring Suppl ([employer]IO) w/Device KITIndications:Type 2 diabetes mellitus with hemoglobin A1c goal of less than 7.0% (HCC) Use up to 4 times a day E11.9 1 Kit 0 10/17/2017 Active gabapentin (NEURONTIN) 300 MG Capsule One pill in am, one midday, two in pm, as directed, increase up to 2 capsules 3 times daily 180 Cap 5 11/16/2017 Active Glucose Blood (Game [employer] VERIO) STRP Use up to four times [...] - [place]) Inject 1 syringeful once weekly 4 [...] 7.0% ([facility]) 09/26/2013 Overview: ICD-10 update of inactive term Vitamin D deficiency 09/26/2013 Lymphedema 03/11/2013 Intermittent asthma with reliever use up to twice per week 01/09/2013 Stasis dermatitis 05/07/2012 NG (nonalcoholic steatohepatitis) 04/12 HTN, goal below 140/90 03/27/2012 Chronic rhinitis 03/27/2012 Cerebral palsy ([facility]) 01/24/2012 Spinal stenosis of lumbar region [...] adult ( [facility]) 06/12/2017 12/19/2017 Overview: Per Obesity protocol #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 7 02/13/2018 Atypical chest pain 08/19/2016 01/17/2017 Depression with anxiety 08/19/2016 02/14/20 18 Hepatic cirrhosis ([facility]) 08/19/2016 03/28/20 17 Polyuria 08/09/2016 01/17/2017 Urinary frequency 08/09/2016 01/17/2017 Generalized OA 06/14/2016 03/28/2017 Body mass index (BMI) of 45.0-49.9 in adult ([facility] ) 12/09/2015 01/17/2017 Overview: bmi= 48.04 12/09/15 Need for shingles vaccine 12/09/20152015 Bilateral shoulder pain 08/25/2015 06/07/20 16 Bilateral shoulder pain 07/16/2015 06/07/20 16 Cerebral palsy (HCC) 04/23/2015 03/28/2017 Candidal vulvovaginitis 02/12/2015 06/07/20 16 Obesity, morbid (more than 1 00 lbs over ideal weight or BMI > 40) ([facility]) 02/09/2015 03/28/2017 THAD (obstructive sleep apnea) 02/09/2015 [...] > 40) ([facility]) 10/28/2013 01/17/2017 Overview: bmi= 53.93 10/28/13 [...] > 40) ([facility]) 05/25/2012 01/17/2017 Overview: BMI= 55.27 05/25/12 [...] pain 01/24/2012 01/17/2017 Genetic Sleep Disorder Research Other*[id number] 05/13/2011 04/07/2016 Obstructive sleep apnea 01/18/2011 12/27/19 [...] Gastroenterology Lyssa Stout CRNP [address] [place] [address] [phone] 04/23/2018 Nutrition Services Gastroenterology Melissa Omalley, [place] [facility] [address] [place] [address] [phone] 05/16/2018 Office Visit Family Medicine Rajwinder Carter DO [address] [place] [address] [phone] 06/07/2018 Office Visit Gastroenterology Lyssa Stout CRNP [address] [place] [address] [phone] 06/11/2018 Pharmacy Pharmacy [facility] [address] [facility] [place] [address] [phone] 08/07/2018 Office Visit Sleep Disorders [facility] Fields [facility] [address] [facility] [place] [address] [phone] [place], Sleep Disorders [address] [facility] [place] [address] [phone] 08/23/2018 Office Visit Dermatology Rachel Hill MD [address] [place] [address], [place] [id number] 09/26/2018 Nurse Only Gastroenterology Dom, Nurse Gastro Chau [address] [facility] [place] [address] 12/19/2018 Office Visit Gynecology Obstetrics Irene Mujica CRNP [address] [facility] [place] [address] [phone] Pending Results Name Priority Associated Diagnoses Date/Ti me MAMMOGRAM SCREENING BILATERAL Routine 04/06/2018 12:00 AM EDT Health Maintenance Due Date Last Done Comments DIABETES-EYE EXAM 1973 BREAST CANCER SCREENING DISCUSSION YEARLY AGES 40-75 01/18/2018 01/18/2017, 01/17/2017 (Discussed), 12/22/2015, Additional history exists Influenza Vaccine (FLU shot) (#1) 2018 07/10/2017, 06/07/2016, 05/22/2015, Additional history exists DIABETES-HGBA1C EVERY 6 MONTHS 08/15/2018 02/13/2018, 10/11/2017, 03/28/2017, Additional history exists DIABETES-LDL EVERY 12 MONTHS 10/11/2018 10/11/2017, 02/01/2017, 05/05/2016, Additional history exists DIABETES-FOOT EXAM 12/26/2018 12/26/2017, 0 03/22/2017, 06/07/2016, Additional history exists DIABETES-URINE MICROALBUMIN EVERY 12 MONTHS 02/06/2019 02/06/2018, 11/17/2017, 11/01/2017, Additional history exists Yearly B-12 02/13/2019 02/13/2018 PAP SMEAR-EVERY 3 YRS,AGES 21-65 10/10/2019 10/10/2016, [...]
--- OUTSIDE RECORDS SUMMARY | 2023-05-10 23:23 | External Medical Summary | Summary of Care ---
Author Name Unknown Organization [place] [address] Phone Care Team Providers Care Manager Perioperative Name Role Phone Rajwinder Carter DO Primary Care Provider [phone] Reason for Visit * Reason Comments ADVICE Encounter Details Date Type Department Care Team Description 04/05/2018 Telephone [place] [address] [place] [address] Rajwinder Carter DO [address] [place] [address] [phone] ADVICE Allergies Active Allergy Reactions Severity Noted [...] bedtime 30 Each 3 10/11/2017 Active nystatin 716380 UNIT/GM creamIndications:Cand idal vulvovaginitis Apply topically to affected area 2 times a day. To affacted area for two weeks. 15 g 2 10/12/2017 Active Blood Glucose Monitoring Suppl (RewardpodTOUCH VERIO) w/Device KITIndications:Type 2 diabetes mellitus with hemoglobin A1c goal of less than 7.0% (HCC) Use up to 4 times a day E11.9 1 Kit 0 10/17/2017 Active gabapentin (NEURONTIN) 300 MG Capsule One pill in am, one midday, two in pm, as directed, increase up to 2 capsules 3 times daily 180 Cap 5 11/16/2017 Active Glucose Blood (RewardpodTOUCH VERIO) STRP Use up to four times [...] ([facility]) Use with Basaglar at bedtime. 30 Each 11 03/12/2018 Active insulin glargine (LANTUS SOLOSTAR) 100 UNIT/ML SOPNIndications:Type 2 diabetes mellitus with hemoglobin A1c goal of less than 7.0% ([facility]) Inject 24 units at bed [...] ([facility]) 02/09/2015 03/28/2017 THAD (obstructive sleep [...] 40) ([facility]) 05/25/2012 01/17/2017 Overview: BMI= 55.27 [...] pain 01/24/2012 01/17/2017 Genetic Sleep Disorder Research Other*[id number] 05/13/2011 04/07/2016 Obstructive sleep apnea 01/18/2011 12/27/19 [...] Telephone Encounter - Susan Rosales RN - 04/06/2018 8:32 AM EDT Info fax to [facility] - left message for patient that [facility] referal made this morning * Telephone Encounter - Rajwinder Carter DO - 04/06/2018 7:28 AM EDT I placed home health referral at her visit on 03/28. I would like them to go out and assess or for safety of her medications. Some insurances/home health agencies can do medication pre-pours every 2 weeks for pts. Please let home health know that this is what we are hoping to do. Pt did not have a preference of agency at visit. * Telephone Encounter - Susan Rosales RN - 04/05/2018 10:45 AM EDT ? Home Health referral not sure will just do prefill meds * Telephone Encounter - Abbie Martinez OSA - 04/05/2018 10:07 AM EDT Patient calling in regarding a nurse visit to assist her with filling her medications. Patient states this was discussed with her PCP at her last visit on 03/28. Please advise patient at [phone]. in this encounter Plan of Treatment Upcoming Encounters Date Type Specialty Care Team Description 04/11/2018 Office Visit Gastroenterology Lyssa Stout CRNP [address] [place] [address] [phone] 04/23/2018 Nutrition Services Gastroenterology Melissa Omalley, RDN [address] [place] [address] [phone] 05/16/2018 Office Visit Family Medicine [facility]winder Carter [facility] [address] [facility] [address] [phone] 06/07/2018 Office Visit Gastroenterology Lyssa Stout CRNP [address] [place] [address] [phone] 06/11/2018 [facility] [address] [facility] [address] [phone] 08/07/2018 Office Visit Sleep Disorders Lanette Fields CRNP [address] [place] [address] [phone] Nurse [place] Sleep Disorders [address] [place] [address] [phone] 08/23/2018 Office Visit Dermatology Rachel Hill MD [address] [place] [address], [place] [address] [phone] 09/26/2018 Nurse Only Gastroenterology Dom, Gastro Chau [address] [place] [address] [phone] 12/19/2018 Office Visit Gynecology Obstetrics Irene Mujica CRNP [address] [place] [address] [phone] Health Maintenance Due Date Last Done Comments [...]
--- OUTSIDE RECORDS SUMMARY | 2023-05-10 23:23 | External Medical Summary | Summary of Care ---
Author Name Unknown Organization [place] [address] Phone Care Team Providers Care Yeast Maker Name Role Phone Rajwinder Lara DO Primary Care Provider [phone] Reason for Visit * Reason Comments MEDICATION REFILL Encounter Details Date Type Department Care Team Description 04/09/[address] [address] Rajwinder Lara DO [address] [place] [address] [phone] Spinal stenosis of lumbar region without neurogenic [...] bedtime 30 Each 3 10/11/2017 Active nystatin 528454 UNIT/GM creamIndications:Ca ndidal vulvovaginitis Apply topically to [...] [facility]) Use with Basaglar at bedtime. 30 Each 11 03/12/2018 Active insulin glargine (LANTUS SOLOSTAR) 100 UNIT/ML SOPNIndications:Typ e 2 diabetes mellitus with hemoglobin A1c goal of less than 7.0% ([facility]) Inject 24 units at bed time 5 Pre-filled Pen Syringe Dosing Unit 3 03/12/2018 Active Dulaglutide (TRULICITY) 1.5 MG/0.5ML SOPNIndications:Typ e 2 diabetes mellitus with hemoglobin A1c goal of less than 7.0% ([facility]) Inject 1 syringeful once weekly 4 Pre-filled [...] 0 03/26/2018 Active levothyroxine (LEVOXYL) 150 MCG TabletIndications:A cquired [...] for pain 60 Tab 0 04/09/2018 Active Hydrocodone-Acetami nophen 10-325 MG per tabletIndications:S jennifer stenosis of lumbar region without neurogenic claudication,DDD (degenerative disc disease), lumbar,MEDICATION USE AGREEMENT take 1 tablet by mouth twice a day if needed for pain 60 Tab 0 03/12/2018 04/09/20 18 Discontinued as of this encounter Active [...] ([facility]) 09/26/2013 Overview: ICD-10 update of inactive term [...] 50.0 to 59.9 in adult ( [facility]) 06/12/2017 12/19/2017 Overview: Per Obesity protocol #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 7 02/13/2018 Atypical chest pain 08/19/2016 01/17/2017 Depression with anxiety 08/19/2016 02/14/20 18 Hepatic cirrhosis (HCC) 08/19/2016 03/28/20 17 Polyuria 08/09/2016 01/17/2017 Urinary frequency 08/09/2016 01/17/2017 Generalized OA 06/14/2016 03/28/2017 Body mass index (BMI) of 45.0-49.9 in adult ([facility] ) 12/09/2015 01/17/2017 Overview: bmi= 48.04 12/09/15 Need for shingles vaccine 12/09/20152015 Bilateral shoulder pain 08/25/2015 06/07/20 16 Bilateral shoulder pain 07/16/2015 06/07/20 16 Cerebral palsy ([facility]) 04/23/2015 03/28/2017 Candidal vulvovaginitis 02/12/2015 06/07/20 16 Obesity, morbid (more than 1 00 lbs over ideal weight or BMI > 40) ([facility]) 02/09/2015 03/28/2017 THAD (obstructive sleep apnea) 02/09/2015 [...] ([facility]) 10/28/2013 01/17/2017 Overview: bmi= 53.93 10/28/13 Sleep [...] ([facility]) 05/25/2012 01/17/2017 Overview: BMI= 55.27 05/25/12 Impacted [...] pain 01/24/2012 01/17/2017 Genetic Sleep Disorder Research Other*[id number] 05/13/2011 04/07/2016 Obstructive sleep apnea 01/18/2011 12/27/19 [...] Telephone Encounter - Kiesha Schmitt LPN - 04/09/2018 12:33 PM EDT Pt aware of message. Pt states these are gone and she has not requested anymore. Understands the med usage agreement advised pt that if she had any questions to let us know. Pt also asked if qty for pain med could be increased and I advised that she speak with PCP at next visit 05/16 * Telephone Encounter - Rajwinder Lara DO - 04/09/2018 12:22 PM EDT Signed Prescriptions: Disp Refills Hydrocodone-Acetaminophen 10-325 MG per ta*60 Tab 0 Sig: take 1 tablet by mouth twice a day if needed for pain Authorizing Provider: RAJWINDER LARA * Telephone Encounter - Rajwinder Lara, - 04/09/2018 12:22 PM EDT Please let pt know: 1. I refilled her pain medication, however, I see that she filled a short supply from her urologist. 2. Please remind her that she should not be getting controlled substances from multiple providers and if there is a pattern, we would no longer prescribe. * Telephone Encounter - Mirella Talavera, PHARM Student - 04/09/2018 11:22 AM EDT I have reviewed the patients controlled substance dispensing history in the Prescription Drug Monitoring Program in compliance with the [facility] regulations before prescribing a controlled substance. PDMP checked on 04/09/2018. Patient requesting: Hydrocodone APAP 10-325, filled 03/12/18, for #60 for a 30 day supply. Other recent controlled medication fills: Oxycodone APAP 7.5-325, filled 02/26/18, for #6 for a 1 day supply. Hydromet Syrup, filled 12/19/17, for #120 for a 24 day supply. Medication due for refill: 04/10/18 Please approve if appropriate. Mirella Talavera Pharm D. Candidate Refill Call Center 04/09/2018, 11:24 AM * Telephone Encounter - Irma Martinez CPhT - 04/09/2018 9:47 AM EDT Formatting of this note may be different from the original. SS Pending Prescriptions: Disp Refills Hydrocodone-Acetaminophen 10-325 MG per t*60 Tab 0 Last Office Visit: 03/28/2018 Next Office Visit: 05/16/2018 Scheduled Provider(s): Rajwinder Lara DO If no future appointments scheduled, and last appointment is greater than a year ago, please schedule patient for a follow-up appointment Last date the medication was ordered: 03/12/18 Patient Phone Numbers Labs: Lab Results Component [...] Gastroenterology Lyssa Stout CRNP [address] [place] [address] [phone] 04/23/2018 Nutrition Services Gastroenterology Melissa Omalley, SAMANTHA [address] [place] [address] [place] [id number] 05/16/2018 Office Visit Family Medicine [facility] [address] [facility] [address] [phone] 06/07/2018 Office Visit Gastroenterology Lyssa Stout CRNP [address] [place] [address] [phone] 06/11/2018 Pharmacy Pharmacy [facility] [address] [place] [facility] [place] [facility] [place] [address] [phone] 08/07/2018 Office Visit Sleep Disorders Lanette Fields CRNP [address] [place] [address] [phone] [place], Nurse Sleep Disorders [address] [place] [address] [phone] 08/23/2018 Office Visit Dermatology Rachel Hill MD [address] [place] [address], [place] [address] [phone] 09/26/2018 Nurse Only Gastroenterology Dom, Gastro [facility]au [address] [place] [address] [phone] 12/19/2018 Office Visit Gynecology Obstetrics Irene Mujica CRNP [address] [place] [address] [phone] Health Maintenance Due Date Last Done Comments [...]
--- OUTSIDE RECORDS SUMMARY | 2023-05-10 23:23 | External Medical Summary | Summary of Care ---
Author Name Unknown Organization [place] [address] Phone Care Team Providers Care Educational Technician Name Role Phone Rajwinder Lara DO Primary Care Provider [phone] Reason for Visit * Reason Comments MEDICATION REFILL Encounter Details Date Type Department Care Team Description 04/09/[address] [address] Rajwinder Lara DO [address] [place] [address] [phone] Spinal stenosis of lumbar region without neurogenic [...] bedtime 30 Each 3 10/11/2017 Active nystatin 519292 UNIT/GM creamIndications:Ca ndidal vulvovaginitis Apply topically to [...] [facility]) Use with Basaglar at bedtime. 30 Each 11 03/12/2018 Active insulin glargine (LANTUS SOLOSTAR) 100 UNIT/ML SOPNIndications:Typ e 2 diabetes mellitus with hemoglobin A1c goal of less than 7.0% ([facility]) Inject 24 units at bed time 5 Pre-filled Pen Syringe Dosing Unit 3 03/12/2018 Active Dulaglutide (TRULICITY) 1.5 MG/0.5ML SOPNIndications:Typ e 2 diabetes mellitus with hemoglobin A1c goal of less than 7.0% ([facility]) Inject 1 syringeful once weekly 4 Pre-filled [...] [facility]) 09/26/2013 Overview: ICD-10 update of inactive term [...] of 50.0 to 59.9 in adult ( 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 ) 12/09/2015 01/17/2017 Overview: bmi= 48.04 12/09/15 Need for shingles vaccine 12/09/20152015 Bilateral shoulder pain 08/25/2015 06/07/20 16 Bilateral shoulder pain 07/16/2015 06/07/20 16 Cerebral palsy ([facility]) 04/23/2015 03/28/2017 Candidal vulvovaginitis 02/12/2015 06/07/20 16 Obesity, morbid (more than 1 00 lbs over ideal weight or BMI > 40) ([facility]) 02/09/2015 03/28/2017 THAD (obstructive sleep apnea) 02/09/2015 [...] over ideal weight or BMI > 40) ([facility]) 10/28/2013 01/17/2017 Overview: bmi= 53.93 10/28/13 Sleep disturbance 05/21/2013 03/28/2017 Insect bites 04/19/2013 06/07/2016 Pruritus 04/19/2013 07/02/2014 Dermatitis 04/19/2013 03/28/2017 Hypokalemia 03/25/2013 06/07/2016 DJD (degenerative joint disease), ankle and foot 03/11/2013 07/02/2014 Right knee DJD 03/11/2013 06/07/2016 Asthma exacerbation 01/09/2013 06/07/2016 Cough 01/09/2013 06/07/2016 Vitamin D deficiency 10/19/2012 07/02/2014 Obesity, morbid (more than 1 00 lbs over ideal weight or BMI > 40) ([facility]) 05/25/2012 01/17/2017 Overview: BMI= 55.27 05/25/12 Impacted [...] pain 01/24/2012 01/17/2017 Genetic Sleep Disorder Research Other*[id number] 05/13/2011 04/07/2016 Obstructive sleep apnea 01/18/2011 12/27/19 [...] had any questions to let us know. * Telephone Encounter - Rajwinder Lara DO - 04/09/2018 12:22 PM EDT Signed Prescriptions: Disp Refills Hydrocodone-Acetaminophen 10-325 MG per ta*60 Tab 0 Sig: take 1 tablet by mouth twice a day if needed for pain Authorizing Provider: RAJWINDER LARA * Telephone Encounter - Rajwinder Lara DO - 04/09/2018 12:22 PM EDT Please let [...] Drug Monitoring Program in compliance with the [facility] regulations before prescribing a controlled substance. PDMP [...] Next Office Visit: 05/16/2018 Scheduled Provider(s): Rajwinder Lara, If no future appointments scheduled, and last [...] Gastroenterology Lyssa Stout CRNP [address] [place] [address] [address] [phone] 04/23/2018 Nutrition Services Gastroenterology Melissa Omalley, SAMANTHA [address] [place] [address] [place] [address] [phone] 05/16/2018 Office Visit Family Medicine [facility]ara DO [address] [facility] [place] [address] [phone] 06/07/2018 Office Visit Gastroenterology Lyssa Stout CRNP [address] [place] [address] [address] [phone] 06/11/2018 Pharmacy Pharmacy [facility] [address] [facility] [address] [phone] 08/07/2018 Office Visit Sleep Disorders Lanette Fields CRNP [address] [place] [address] [address] [phone] [place], Nurse Sleep Disorders [address] [place] [address] [address] [phone] 08/23/2018 Office Visit Dermatology Rachel Hill MD [address] [place], [place] [address] [address] [phone] 09/26/2018 Nurse Only Gastroenterology Nurse Dom G[facility] [address] [place] [address] [address] [phone] 12/19/2018 Office Visit Gynecology Obstetrics Irene Mujica CRNP [address] [place] [address] [phone] Health Maintenance Due Date Last Done Comments [...]
--- OUTSIDE RECORDS SUMMARY | 2023-05-10 23:23 | External Medical Summary | Summary of Care ---
Author Name Unknown Organization [place] [address] Phone Care Team Providers Care Marine Surveyor Name Role Phone JohnRajwinder fortune Primary Care Provider [phone] Reason for Visit * Reason Comments FOLLOW UP Encounter Details Date Type Department Care Team Description 04/11/2018 Office Visit Gastroenterology, [facility] [address] [facility] [place] [address] Lyssa Stout CRNP [address] [place] [address] [phone] Cirrhosis of liver without ascites, unspecified hepatic cirrhosis type (HCC)*;Esophageal varices without bleeding, unspecified esophageal varices type [...] bedtime 30 Each 3 10/11/2017 Active nystatin 087800 UNIT/GM creamIndications:Ca ndidal vulvovaginitis Apply topically to affected area 2 times a day. To affacted area for two weeks. 15 g 2 10/12/2017 Active Blood Glucose Monitoring Suppl (CeloNovaTOUCH VERIO) w/Device KITIndications:Type 2 diabetes mellitus with hemoglobin A1c goal of less than 7.0% (HCC) Use up to 4 times a day E11.9 1 Kit 0 10/17/2017 Active gabapentin (NEURONTIN) 300 MG Capsule One pill in am, one midday, two in pm, as directed, increase up to 2 capsules 3 times daily 180 Cap 5 11/16/2017 Active Glucose Blood (CeloNovaTOUCH VERIO) STRP Use up to four times [...] mouth daily. 30 Tab 3 04/11/2018 Active atenolol (TENORMIN) 25 MG Tablet Take 1 Tab by mouth at bedtime. 30 Tab 5 10/09/2017 04/11/20 18 Discontinued citalopram (CELEXA) 40 MG Tablet Take 1 Tab by mouth daily. 0 03/26/2018 04/11/20 18 Discontinued as of this encounter Active [...] > 40) ([facility]) 02/09/2015 03/28/2017 THAD (obstructive sleep apnea) [...] pain 01/24/2012 01/17/2017 Genetic Sleep Disorder Research Other*[id number] 05/13/2011 04/07/2016 Obstructive sleep apnea 01/18/2011 12/27/19 [...] Vital Sign Reading Time Taken Blood Pressure 128/68 04/11/2018 2:27 PM EDT Pulse 72 04/11/2018 2:27 PM EDT Temperature 36.5 C (97.7 F) 04/11/2018 2 :27 PM EDT Respiratory Rate 20 04/11/2018 2:27 PM EDT Oxygen Saturation - - Inhaled Oxygen Concentration - - Weight 115.7 kg (255 lb) 04/11/2018 2:2 7 PM EDT Height 149.9 cm (4' 11") 04/11/2018 2:2 7 PM EDT Body Mass Index 51.5 04/11/2018 2:27 PM EDT in this encounter Instructions * Patient Instructions - Lyssa Stout CRNP - 04/11/2018 2:42 PM EDT Stop Atenolol, start Nadolol 20mg by mouth once daily. On your 04/23/18 appointment, we will check your heart rate and blood pressure to determine if we need to adjust the Nadolol dose or not. in this encounter Progress Notes * Lyssa Stout CRNP - 04/11/2018 2:15 PM EDT Shaina Bustos is a 62 year old female w NALFD Cirrhosis. MELD 6. Hx of grade I esophageal varices seen on last EGD 01/11/17. She was last seen in GI clinic by myself on 03/08/18. I had requested her to come into clinic today to do med reconciliation and also plan to change her Atenolol to a non selective beta roxana. No changes in past medical/surgical/family histories. Pt brought her home health aide ([facility]). Home med list reviewed by RN. I advised pt to stop Atenolol.We will start her on Nadolol 20mg daily. Goal HR 55-65. Med list updated. She has GI Nutrition appt on 04/23/18. I will ask for RN to check her HR and B/P to determine if Nadolol's dose need to be adjusted or not. She will be due for her 2nd Hep B vaccination at that time as well. Next GI appt on 06/07/18. ZAK Schreiber in this encounter Nursing Notes * Cecelia Scott, RN - 04/11/2018 2:31 PM EDT Formatting of this note may be different from the original. Chief Complaint Patient presents with FOLLOW UP Pt states she is here to review her medicines. Forgot the meds themselves but care services manager and pt state the list with them is correct. in this encounter Plan of Treatment Upcoming Encounters Date Type Specialty Care Team Description 04/23/2018 Nutrition Services Gastroenterology Melissa Omalley, [place] [address] [facility] [place] [address] [place] [address] 05/16/2018 Office Visit Family Medicine Rajwinder Carter DO [address] [place] [address] 06/07/2018 Office Visit Gastroenterology Lyssa Stout CRNP [address] [facility] [address] [phone] 06/11/2018 Pharmacy Pharmacy [address], [place] [address] [phone] 08/07/2018 Office Visit Sleep Disorders Lanette Fields CRNP [address] [facility] [place] [address] [phone] Gw, Nurse Sleep Disorders [address] [facility] [address] [phone] 08/23/2018 Office Visit Dermatology Rachel Hill MD [address] [place] [address], [place] [address] [phone] 09/26/2018 Nurse Only Gastroenterology Dom, Nurse Gastro Chau [address] [facility] [address] [phone] 12/19/2018 Office Visit Gynecology Obstetrics Irene Mujica CRNP [address] [place] [address] [phone] Health Maintenance Due Date Last Done Comments [...] fileas of this encounter Visit Diagnoses Diagnosis Cirrhosis of liver without a scites, unspecified hepatic cirrhosis type (HCC) - Primary Esophageal varices without b leeding, unspecified esophageal varices type (HCC) in this encounter
--- OUTSIDE RECORDS SUMMARY | 2023-05-10 23:23 | External Medical Summary | Summary of Care ---
Author Name Unknown Organization [place] [address] Phone Care Team Providers Care Coyote Hunter Name Role Phone Rajwinder Lara DO Primary Care Provider [phone] Reason for Visit * Reason Comments MEDICATION REFILL Encounter Details Date Type Department Care Team Description 04/09/[address] [address] Rajwinder Lara DO [address] [place] [address] [phone] Spinal stenosis of lumbar region without neurogenic [...] bedtime 30 Each 3 10/11/2017 Active nystatin 844228 UNIT/GM creamIndications:Ca ndidal vulvovaginitis Apply topically to [...] than 7.0% ([facility]) Use with Basaglar at bedtime. 30 Each 11 03/12/2018 Active insulin glargine (LANTUS SOLOSTAR) 100 UNIT/ML SOPNIndications:Typ e 2 diabetes mellitus with hemoglobin A1c goal of less than 7.0% ([facility]) Inject 24 units at bed time 5 Pre-filled Pen Syringe Dosing Unit 3 03/12/2018 Active Dulaglutide (TRULICITY) 1.5 MG/0.5ML SOPNIndications:Typ e 2 diabetes mellitus with hemoglobin A1c goal of less than 7.0% ([facility]) Inject 1 syringeful once weekly [...] than 7.0% ([facility]) 09/26/2013 Overview: ICD-10 update of [...] 50.0 to 59.9 in adult ( [facility]) 06/12/2017 12/19/2017 Overview: Per Obesity protocol #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 7 02/13/2018 Atypical chest pain 08/19/2016 01/17/2017 Depression with anxiety 08/19/2016 02/14/20 18 Hepatic cirrhosis (HCC) 08/19/2016 03/28/20 17 Polyuria 08/09/2016 01/17/2017 Urinary frequency 08/09/2016 01/17/2017 Generalized OA 06/14/2016 03/28/2017 Body mass index (BMI) of 45.0-49.9 in adult ([facility] ) 12/09/2015 01/17/2017 Overview: bmi= 48.04 12/09/15 Need for shingles vaccine 12/09/20152015 Bilateral shoulder pain 08/25/2015 06/07/20 16 Bilateral shoulder pain 07/16/2015 06/07/20 16 Cerebral palsy ([facility]) 04/23/2015 03/28/2017 Candidal vulvovaginitis 02/12/2015 06/07/20 16 Obesity, morbid (more than 1 00 lbs over ideal weight or BMI > 40) ([facility]) 02/09/2015 03/28/2017 THAD (obstructive sleep [...] ideal weight or BMI > 40) ([facility]) 10/28/2013 01/17/2017 Overview: bmi= 53.93 [...] ideal weight or BMI > 40) ([facility]) 05/25/2012 01/17/2017 Overview: BMI= 55.27 [...] pain 01/24/2012 01/17/2017 Genetic Sleep Disorder Research Other*[id number] 05/13/2011 04/07/2016 Obstructive sleep apnea 01/18/2011 12/27/19 [...] Drug Monitoring Program in compliance with the [facility] regulations before prescribing a controlled substance. PDMP [...] Gastroenterology Lyssa Stout CRNP [address] [place] [address] [phone] 04/23/2018 Nutrition Services Gastroenterology Melissa Omalley, RDN [address] [place] [address] [place] [address] [phone] 05/16/2018 Office Visit Family Medicine Rajwinder Lara DO [address] [facility] [place] [address] [phone] 06/07/2018 Office Visit Gastroenterology Lyssa Stout CRNP [address] [place] [address] [phone] 06/11/2018 Pharmacy Pharmacy [facility] [address] [facility] [address] [phone] 08/07/2018 Office Visit Sleep Disorders Lanette Fields CRNP [address] [place] [address] [phone] Nurse Kentrell Sleep Disorders [address] [place] [address] [phone] 08/23/2018 Office Visit Dermatology Rachel Hill MD [address] [place] [address], [place] [address] [phone] 09/26/2018 Nurse Only Gastroenterology Dom, Gastro Chau [address] [place] [address] [phone] 12/19/2018 Office Visit Gynecology Obstetrics Irene Mujica CRNP [address] [place] [address] [phone] Health Maintenance Due Date Last Done Comments [...]
--- OUTSIDE RECORDS SUMMARY | 2023-05-10 23:23 | External Medical Summary | Summary of Care ---
Author Name Unknown Organization [place] [address] Phone Care Team Providers Care Billboard Poster Name Role Phone JohnRajwinder fortune Primary Care Provider [phone] Reason for Visit * Reason Comments FOLLOW UP Encounter Details Date Type Department Care Team Description 04/11/2018 Office Visit Gastroenterology, [facility] 132 [facility] [place] [address] Lyssa Stout CRNP 132 [facility] [place] [address] [phone] Cirrhosis of liver without ascites, unspecified hepatic [...] bedtime 30 Each 3 10/11/2017 Active nystatin 474175 UNIT/GM creamIndications:Ca ndidal vulvovaginitis Apply topically to affected area 2 times a day. To affacted area for two weeks. 15 g 2 10/12/2017 Active Blood Glucose Monitoring Suppl (Covalys BiosciencesTOUCH VERIO) w/Device KITIndications:Type 2 diabetes mellitus with hemoglobin A1c goal of less than 7.0% (HCC) Use up to 4 times a day E11.9 1 Kit 0 10/17/2017 Active gabapentin (NEURONTIN) 300 MG Capsule One pill in am, one midday, two in pm, as directed, increase up to 2 capsules 3 times daily 180 Cap 5 11/16/2017 Active Glucose Blood (Covalys BiosciencesTOUCH VERIO) STRP Use up to four times [...] pain 01/24/2012 01/17/2017 Genetic Sleep Disorder Research Other*[id number] 05/13/2011 04/07/2016 Obstructive sleep apnea 01/18/2011 12/27/19 [...] Atenolol to a non selective beta roxana. Pt brought her home health aide ([facility]). [...] her medicines. Forgot the meds themselves but healthcare architect and pt state the list with them is correct. in this encounter Plan of Treatment Upcoming Encounters Date Type Specialty Care Team Description 04/23/2018 Nutrition Services Gastroenterology Melissa Omalley, SAMANTHA [address] [place] [address] 05/16/2018 Office Visit Family Medicine Rajwinder Carter DO [address] [place] [address] [phone] 06/07/2018 Office Visit Gastroenterology Lyssa Stout CRNP 132 [facility] [place] [address] [phone] 06/11/2018 Pharmacy Pharmacy [address] [place] [address] [phone] 08/07/2018 Office Visit Sleep Disorders Lanette Fields CRNP 132 [facility] [place] [address] [phone] [place], Nurse Sleep Disorders [facility] [address] [phone] 08/23/2018 Office Visit Dermatology Rachel Hill MD [address] [place] [address], [place] [address] [phone] 09/26/2018 Nurse Only Gastroenterology Dom, Nurse Gastro Chau 132 [facility] [place] [address] [phone] 12/19/2018 Office Visit Gynecology Obstetrics Irene Mujica CRNP 132 [facility] [place] [address] [phone] Health Maintenance Due Date Last Done Comments [...]
--- OUTSIDE RECORDS SUMMARY | 2023-05-10 23:23 | External Medical Summary | Summary of Care ---
Author Name Unknown Organization [place] [address] Phone Care Team Providers Care Mental Telepathist Name Role Phone Rajwinder Carter DO Primary Care Provider [phone] Reason for Visit * Reason Comments Information Encounter Details Date Type Department Care Team Description 04/18/2018 Telephone [place] [address] [place] [address] Rajwinder Carter DO [address] [place] [address] [phone] Information Allergies Active Allergy Reactions Severity Noted [...] bedtime 30 Each 3 10/11/2017 Active nystatin 843693 UNIT/GM creamIndications:Cand idal vulvovaginitis Apply topically to affected area 2 times a day. To affacted area for two weeks. 15 g 2 10/12/2017 Active Blood Glucose Monitoring Suppl ([employer] VERIO) w/Device KITIndications:Type 2 diabetes mellitus with hemoglobin A1c goal of less than 7.0% (HCC) Use up to 4 times a day E11.9 1 Kit 0 10/17/2017 Active gabapentin (NEURONTIN) 300 MG Capsule One pill in am, one midday, two in pm, as directed, increase up to 2 capsules 3 times daily 180 Cap 5 11/16/2017 Active Glucose Blood (CrunchyrollTOUCH VERIO) STRP Use up to four times [...] BMI > 40) ([facility]) 02/09/2015 03/28/2017 THAD (obstructive sleep [...] pain 01/24/2012 01/17/2017 Genetic Sleep Disorder Research Other*[id number] 05/13/2011 04/07/2016 Obstructive sleep apnea 01/18/2011 12/27/19 [...] Miscellaneous Notes * Telephone Encounter - Shannan Pavon LPN - 04/18/2018 4:27 PM EDT Pt rtc and below message given * Telephone Encounter - Kenya Vaz OSA - 04/18/2018 4:25 PM EDT Reason for patient's call: pt returning phone call Caller was transferred to [facility] at the dedicated phone nurse line. * Telephone Encounter - Shannan Bojorquez LPN - 04/18/2018 4:15 PM EDT Received back from [facility]: No longer providing incontinence supplies for pt as her coverage terminated 04/10/2018. Called [employer], her medical supply company, to see what nextstep would be for pt. Advised they are going to use pts current insurance information, but not sureif they will cover these supplies. Attempted to reach pt to notify of status the issue, no answer and no voicemail to let message. Tried home phone, would not ring. Will wait for response from [employer]. in this encounter Plan of Treatment Upcoming Encounters Date Type Specialty Care Team Description 04/23/2018 Nurse Only Gastroenterology Dom, Gastro Chau [address] [place] [address] [phone] 04/23/2018 Nutrition Services Gastroenterology Melissa Omalley, RDN [address] [facility] [address] [place] [id number] 05/16/2018 Office Visit Family Medicine [facility]inder Carter DO [address] [facility] [place] [address] [phone] 06/07/2018 Office Visit Gastroenterology Lyssa Stout CRNP 132 [facility] [place] [address] [phone] 06/11/2018 Pharmacy Pharmacy [facility] [address] [facility] [address] [phone] 08/07/2018 Office Visit Sleep Disorders Lanette Fields CRNP 132 [facility] [place] [address] [phone] Nurse Kentrell Sleep Disorders 132 [facility] [place] [address] [phone] 08/23/2018 Office Visit Dermatology Rachel Hill MD [address] [place] [address], [place] [address] [phone] 09/26/2018 Nurse Only Gastroenterology Dom, Gastro Chau [address] [facility] [place] [address] [phone] 12/19/2018 Office Visit Gynecology Obstetrics Irene Mujica CRNP 132 [facility] [place] [address] [phone] Health Maintenance Due Date Last Done Comments [...]
--- OUTSIDE RECORDS SUMMARY | 2023-05-10 23:24 | External Medical Summary | Summary of Care ---
Author Name Unknown Organization [place] [address] Phone Care Team Providers Care Organ Fixer Name Role Phone ArabellaRajwinder thacker Primary Care Provider [phone] Encounter Details Date Type Department Care Team Description 03/26/2018 Nurse Only Gastroenterology, Jose [facility]ver[facility] 132 [facility] [place] [address] [facility], Nurse Gastro [facility] 132 [facility] [place] [address] [phone] Arrived Allergies Active Allergy Reactions Severity Noted [...] tab daily 1 Tab 0 05/25/2012 Active BETAMETHASONE VALERATE 0.1 % EX CREAIndications:Ins ect bites,Dermatitis,Pr uritus apply to affected area twice daily, as needed 30 g 1 04/19/2013 Active OCEAN NASAL SPRAY 0.65 % NA SOLNIndications:All ergic rhinitis Two sprays in each nostril as needed for nasal dryness or congestion 1 Bottle 5 05/29/2014 Active Azelastine HCl (ASTELIN) 0.1 % nasal sprayIndications:Ot algia, bilateral,Dysfuncti on of Eustachian tube, bilateral,Chronic rhinitis Administer 2 Sprays into each nostril 2 times a day. 1 Bottle 11 12/09/2015 Active nystatin (NYSTOP) powderIndications:C utaneous candidiasis Apply topically to affected area 3 times a day. Sprinkle over affected area. 1 Bottle 1 05/11/2016 Active Glucosamine-Chondro itin (GLUCOSAMINE CHONDR COMPLEX) 500-400 MG CapsuleIndications: Primary osteoarthritis of knees, bilateral Take 1 Cap by mouth 3 times a day. 1 Cap 0 06/07/2016 Active albuterol (PROVENTIL HFA) 108 (90 BASE) MCG/ACT inhalerIndications: Bronchitis, complicated Inhale 2 Puffs by mouth 4 times a day. 1 Inhaler 1 06/29/2016 Active Vitamin D, Ergocalciferol, 19304 UNITS CapsuleIndications: Vitamin D deficiency 1capsule every other week 8 Cap 6 09/27/2016 Active Blood Glucose Monitoring Suppl (RachioTOAstoria Software VERIO) W/DEVICE KITIndications:Type 2 diabetes mellitus with hemoglobin A1c goal of less than 7.0% (HCC) Use as directed. Use daily to check blood sugars DX:E11.9 1 Kit 0 01/17/2017 Active ONETOUCH ULTRASOFT LANCETS MISCIndications:Typ e 2 diabetes mellitus with hemoglobin A1c goal of less than 7.0% (HCC) Use as directed 4 times a day as needed (Use daily to check blood sugars DX:E11.9). Use up to four times a day as directed 1 Box Dosing Unit 11 01/17/2017 Active busPIRone (BUSPAR) 10 MG Tablet 0 02/14/2017 Active furosemide (LASIX) 20 MG TabletIndications:E abelardo,Stasis [...] bedtime 30 Each 3 10/11/2017 Active nystatin 205983 UNIT/GM creamIndications:Ca ndidal vulvovaginitis Apply topically to affected area 2 times a day. To affacted area for two weeks. 15 g 2 10/12/2017 Active Blood Glucose Monitoring Suppl (BCKSTGRIO) w/Device KITIndications:Type 2 diabetes mellitus with hemoglobin [...] mouth daily. 90 Cap 1 01/10/2018 Active traZODone (DESYREL) 50 MG TabletIndications:S leep disturbances Take 1 Tab by mouth at bedtime. 30 Tab 5 01/10/2018 Active potassium chloride ER 10 MEQ TBCRIndications:Hyp okalemia With food. Pt reports only taking once dailly. 60 Tab 5 02/17/2018 Active escitalopram (LEXAPRO) 10 MG Tablet Take 1.5 Tabs by mouth daily. 45 Tab 5 02/17/2018 Active levothyroxine (LEVOXYL) 100 MCG Tablet Take 1 Tab by mouth daily. (at least 30 min prior to breakfast or other meds) 30 Tab 5 02/26/2018 Active levothyroxine (LEVOXYL) 75 MCG Tablet Take 1 Tab by mouth daily. (at least 30 min prior to breakfast or other meds) Take with 100mcg to equal 175mcg 30 Tab 11 02/23/2018 Active vitamin c (ASCORBIC ACID) 500 MG Tablet Take 500 mg by mouth daily. Active Hydrocodone-Acetami nophen 10-325 MG per tabletIndications:S [...] at bedtime 30 Tab 0 03/26/2018 Active cyclobenzaprine (FLEXERIL) 10 MG Tablet Take 1 Tab by mouth at bedtime. 30 Tab 0 02/15/2018 03/26/20 18 Discontinued as of this encounter Active [...] than 7.0% ([facility]) 09/26/2013 Overview: ICD-10 update of inactive term Vitamin D deficiency 09/26/2013 Lymphedema 03/11/2013 Intermittent asthma with reliever use up to twice per week 01/09/2013 Stasis dermatitis 05/07/2012 NG (nonalcoholic steatohepatitis) 04/12 HTN, goal below 140/90 03/27/2012 Chronic rhinitis 03/27/2012 Cerebral palsy ([facility]) 01/24/2012 Spinal stenosis of lumbar region [...] of 50.0 to 59.9 in adult ( 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) 08/19/2016 03/28/20 17 Polyuria 08/09/2016 01/17/2017 Urinary frequency 08/09/2016 01/17/2017 Generalized OA 06/14/2016 03/28/2017 Body mass index (BMI) of 45.0-49.9 in adult ([facility] ) 12/09/2015 01/17/2017 Overview: bmi= 48.04 12/09/15 Need for shingles vaccine 12/09/20152015 Bilateral shoulder pain 08/25/2015 06/07/20 16 Bilateral shoulder pain 07/16/2015 06/07/20 16 Cerebral palsy ([facility]) 04/23/2015 03/28/2017 Candidal vulvovaginitis 02/12/2015 06/07/20 16 Obesity, morbid (more than 1 00 lbs over ideal weight or BMI > 40) ([facility]) 02/09/2015 03/28/2017 THAD (obstructive sleep apnea) [...] over ideal weight or BMI > 40) ([facility]) 10/28/2013 01/17/2017 Overview: bmi= 53.93 10/28/13 [...] over ideal weight or BMI > 40) ([facility]) 05/25/2012 01/17/2017 Overview: BMI= 55.27 05/25/12 [...] pain 01/24/2012 01/17/2017 Genetic Sleep Disorder Research Other*[id number] 05/13/2011 04/07/2016 Obstructive sleep apnea 01/18/2011 12/27/19 [...] Not on file as of this encounter Nursing Notes * Caron Escobar RN - 03/26/2018 1:49 PM EDT Patient Identified (Ask Name/Date of ): Yes Does the patient have a fever greater than 101 degrees today? No Patient allergic to latex? No Is the patient currently taking Steroids No Has the patient ever fainted after receiving an injection? No Injection(s) verified: Yes, Injection Name: Hep A and Hep B VIS Sheet Given Yes in this encounter Plan of Treatment Upcoming Encounters Date Type Specialty Care Team Description 03/26/2018 Nurse Only Gastroenterology Dom, Nurse Anthony Ritchie 132 [facility] [place] [address] [phone] Arrived 03/28/2018 Office Visit Family Medicine Rajwinder Carter DO [address] [place] [address] [phone] 03/30/2018 Office Visit Gastroenterology Angela Gonzalez, DO [address] [facility] [id number] 04/25/2018 Office Visit [facility]ology Angela Gonzalez, [address] [facility] [address] [phone] 06/07/2018 Office Visit Gastroenterology Lyssa Stout CRNP [facility] [place] [address] [phone] 06/11/2018 Pharmacy Pharmacy [facility] [address] [facility] [address] [phone] 08/07/2018 Office Visit Sleep Disorders [facility] Fields CRNP [facility] [place] [address] [phone] [place], Nurse Sleep Disorders [address] [facility] [place] [address] [phone] 08/23/2018 Office Visit Dermatology Rachel Hill MD [address] [place] [address], [place] [address] [phone] 12/19/2018 Office Visit Gynecology Obstetrics Irene Mujica CRNP 132 [facility] [place] [address] [phone] Health Maintenance Due Date Last Done Comments [...]
--- OUTSIDE RECORDS SUMMARY | 2023-05-10 23:24 | External Medical Summary | Summary of Care ---
Author Name Unknown Organization [place] [address] Phone Care Team Providers Care Industrial Engineer Name Role Phone Rajwinder Carter DO Primary Care Provider [phone] Reason for Visit * Reason Comments MEDICATION QUESTION Encounter Details Date Type Department Care Team Description 04/02/2018 Telephone [place] [address] [place] [address] Rajwinder Carter DO [address] [place] [address] [phone] MEDICATION QUESTION Allergies Active Allergy Reactions Severity Noted Date [...] bedtime 30 Each 3 10/11/2017 Active nystatin 327506 UNIT/GM creamIndications:Ca ndidal vulvovaginitis Apply topically to affected area 2 times a day. To affacted area for two weeks. 15 g 2 10/12/2017 Active Blood Glucose Monitoring Suppl (NerdiesUCH VERIO) w/Device KITIndications:Type 2 diabetes mellitus with hemoglobin A1c goal of less than 7.0% (HCC) Use up to 4 times a day E11.9 1 Kit 0 10/17/2017 Active gabapentin (NEURONTIN) 300 MG Capsule One pill in am, one midday, two in pm, as directed, increase up to 2 capsules 3 times daily 180 Cap 5 11/16/2017 Active Glucose Blood (NerdiesUCH VERIO) STRP Use up to four times [...] ([facility]) Use with Basaglar at bedtime. [...] other meds) 30 Tab 11 04/02/2018 Active levothyroxine (LEVOXYL) 100 MCG Tablet Take 1 Tab by mouth daily. (at least 30 min prior to breakfast or other meds) 30 Tab 5 02/26/2018 04/02/20 18 Discontinued levothyroxine (LEVOXYL) 75 MCG Tablet Take 1 Tab by mouth daily. (at least 30 min prior to breakfast or other meds) Take with 100mcg to equal 175mcg 30 Tab 11 02/23/2018 04/02/20 18 Discontinued as of this encounter Active [...] 40) ([facility]) 02/09/2015 03/28/2017 THAD (obstructive sleep [...] pain 01/24/2012 01/17/2017 Genetic Sleep Disorder Research Other*[id number] 05/13/2011 04/07/2016 Obstructive sleep apnea 01/18/2011 12/27/19 [...] Telephone Encounter - Michaelle Lindquist LPN - 04/03/2018 1:08 PM EDT Pt. aware of md's advice and voiced understanding. * Telephone Encounter - Jaci Bangura CPhT - 04/03/2018 1:05 PM EDT Patient transferred to [facility] [place] [facility] Billing Clerk Pharmacy Refill Call Center 04/03/2018,1:05 PM * Telephone Encounter - Ludy Jara LPN - 04/03/2018 11:05 AM EDT left a message for patient (or parent) to return call to triage regarding message. * Telephone Encounter - Rajwinder Carter DO - 04/02/2018 4:34 PM EDT I had explained to pt that we were waiting for her repeat lab studies. In review of her TSH, we have to decrease her thyroid medication to 150mcg. She will need repeat TSH in 6 weeks. I have sent this as one pill to the pharmacy. She can stop the other two pills. * Telephone Encounter - Susan Rosales RN - 04/02/2018 3:08 PM EDT atient requesting her levothryoine 175 mg be one pill will you order? * Telephone Encounter - Shanel Rain, spray gun striper - 04/02/2018 2:38 PM EDT The pt is calling regarding the Rx for levothyroxine (LEVOXYL) 100 MCG Tablet The pt states it was discussed that an Rx will be sent for levothyroxine (LEVOXYL) 175 MCG Tablet will be sent to her pharmacy so she doesn't have to take 2 pills I attempted to explain to the pt she has refills at the pharmacy. The pt insists on having a new Rx for one pill sent. The pt can be reached at [phone] Please advise Thanks, Shanel Rain Net Lead Architect Pharmacy Refill Call Center 04/02/2018,2:40 PM in this encounter Plan of Treatment Upcoming Encounters Date Type Specialty Care Team Description 04/11/2018 Office Visit Gastroenterology Lyssa Stout CRNP [address] [place] [address] [phone] 04/23/2018 Nutrition Services Gastroenterology Melissa Omalley, SAMANTHA [address] [place] [place] [address] [phone] 05/16/2018 Office Visit Family Medicine Rajwinder Carter DO [address] [place] [address] [phone] 06/07/2018 Office Visit Gastroenterology Lyssa Stout CRNP [address] [place] [address] [phone] 06/11/2018 Pharmacy Pharmacy [facility] [address] [place] [address] [phone] 08/07/2018 Office Visit Sleep Disorders Lanette Fields CRNP [facility] [address] [phone] [place], Nurse Sleep Disorders [facility] [address] [phone] 08/23/2018 Office Visit Dermatology Rachel Hill MD [address] [place] [address], [place] [address] [phone] 09/26/2018 Nurse Only Gastroenterology Dom, Gastro Chau [facility] [address] [phone] 12/19/2018 Office Visit Gynecology Obstetrics Irene Mujica CRNP [address] [facility] [address] [phone] Scheduled Tests Name Priority Associated Diagnoses Order S chedule TSH W/FT4 IF TSH IS INDICATED Routine Acquired hypothyroidism Expected: 04/02/2018 (Approximate), Expires: 04/02/2019 Health Maintenance Due Date Last Done Comments [...] fileas of this encounter Visit Diagnoses Diagnosis Acquired hypothyroidism - Pr imary Unspecified hypothyroidism in this encounter
--- OUTSIDE RECORDS SUMMARY | 2023-05-10 23:24 | External Medical Summary | Summary of Care ---
Author Name Unknown Organization [place] [address] Phone Care Team Providers Care Manipulator Operator Name Role Phone Rajwinder Carter DO Primary Care Provider [phone] Reason for Visit * Reason Comments Encounter Created in Error Encounter Details Date Type Department Care Team Description 03/12/2018 Refill [place] [address] [place] [address] Rajwinder Carter DO [address] [place] [address] [phone] Spinal stenosis of lumbar region without neurogenic [...] 05/25/2012 Active BETAMETHASONE VALERATE 0.1 % EX CREAIndications:Insec t bites,Dermatitis,Prur itus apply to affected area twice daily, as needed 30 g 1 04/19/2013 Active OCEAN NASAL SPRAY 0.65 % NA SOLNIndications:Aller gic rhinitis Two sprays in each nostril as needed for nasal dryness or congestion 1 Bottle 5 05/29/2014 Active Azelastine HCl (ASTELIN) 0.1 % nasal sprayIndications:Otal ivis, bilateral,Dysfunction of Eustachian tube, bilateral,Chronic rhinitis Administer 2 Sprays into each nostril 2 times a day. 1 Bottle 11 12/09/2015 Active nystatin (NYSTOP) powderIndications:Cut aneous candidiasis Apply topically to affected area 3 times a day. Sprinkle over affected area. 1 Bottle 1 05/11/2016 Active Glucosamine-Chondroit in (GLUCOSAMINE CHONDR COMPLEX) 500-400 MG CapsuleIndications:Pr imary osteoarthritis of knees, bilateral Take 1 Cap by mouth 3 times a day. 1 Cap 0 06/07/2016 Active albuterol (PROVENTIL HFA) 108 (90 BASE) MCG/ACT inhalerIndications:Br onchitis, complicated Inhale 2 Puffs by mouth 4 times a day. 1 Inhaler 1 06/29/2016 Active Vitamin D, Ergocalciferol, 83683 UNITS CapsuleIndications:Vi tamin D deficiency 1capsule every other week 8 Cap 6 09/27/2016 Active Blood Glucose Monitoring Suppl (MedManage SystemsTOUCH VERIO) W/DEVICE KITIndications:Type 2 diabetes mellitus with hemoglobin A1c goal of less than 7.0% (HCC) Use as directed. Use daily to check blood sugars DX:E11.9 1 Kit 0 01/17/2017 Active MedManage SystemsTOUCH ULTRASOFT LANCETS MISCIndications:Type 2 diabetes mellitus with hemoglobin A1c goal of less than 7.0% (HCC) Use as directed 4 times a day as needed (Use daily to check blood sugars DX:E11.9). Use up to four times a day as directed 1 Box Dosing Unit 11 01/17/2017 Active busPIRone (BUSPAR) 10 MG Tablet 0 02/14/2017 Active furosemide (LASIX) 20 MG TabletIndications:Erickson ma,Stasis [...] bedtime 30 Each 3 10/11/2017 Active nystatin 439207 UNIT/GM creamIndications:Cand idal vulvovaginitis Apply topically to affected area 2 times a day. To affacted area for two weeks. 15 g 2 10/12/2017 Active Blood Glucose Monitoring Suppl (NextGxDX VERIO) w/Device KITIndications:Type 2 diabetes mellitus with hemoglobin A1c goal of less than 7.0% (HCC) Use up to 4 times a day E11.9 1 Kit 0 10/17/2017 Active gabapentin (NEURONTIN) 300 MG Capsule One pill in am, one midday, two in pm, as directed, increase up to 2 capsules 3 times daily 180 Cap 5 11/16/2017 Active Glucose Blood (DistalMotionUCH VERIO) STRP Use up to four times [...] 1 01/10/2018 Active traZODone (DESYREL) 50 MG TabletIndications:Sle ep disturbances Take 1 Tab by mouth at bedtime. 30 Tab 5 01/10/2018 Active potassium chloride ER 10 MEQ TBCRIndications:Hypok alemia With food. Pt reports only taking once dailly. 60 Tab 5 02/17/2018 Active escitalopram (LEXAPRO) 10 MG Tablet Take 1.5 Tabs by mouth daily. 45 Tab 5 02/17/2018 Active cyclobenzaprine (FLEXERIL) 10 MG Tablet Take 1 Tab by mouth at bedtime. 30 Tab 0 02/15/2018 Active levothyroxine (LEVOXYL) 100 MCG Tablet Take [...] for pain 60 Tab 0 03/12/2018 Active as of this encounter Active Problems [...] ([facility]) 02/09/2015 03/28/2017 THAD (obstructive sleep apnea) 02/09/2015 [...] pain 01/24/2012 01/17/2017 Genetic Sleep Disorder Research Other*[id number] 05/13/2011 04/07/2016 Obstructive sleep apnea 01/18/2011 12/27/19 [...] Telephone Encounter - Rajwinder Carter DO - 03/15/2018 5:40 PM EDT Duplicate request. Already sent. * Telephone Encounter - Karyn Ta OSA - 03/12/2018 10:44 AM EDT Formatting of this note may be different from the original. Pending Prescriptions: Disp Refills Hydrocodone-Acetaminophen 10-325 MG per t*60 Tab 0 Last Office Visit: 02/13/2018 Next Office Visit: 03/28/2018 Scheduled Provider(s): Rajwinder Carter, If no future appointments scheduled, and last appointment is greater than a year ago, please schedule patient for a follow-up appointment Last date the medication was ordered: Patient Phone Numbers Labs: Lab Results Component Value Date/Time CREAT 0.7 02/13/2018 03:27 PM POTASSIUM 4.2 02/13/2018 03:27 PM TSH 0.01 (L) 02/13/2018 03:27 PM LDLCALC 57 05/05/2016 10:19 AM LDLDIRECT 57 10/11/2017 01:18 PM ALT 26 02/13/2018 03:27 PM HGBA1C 7.1 (H) 02/13/2018 03:27 PM in this encounter Plan of Treatment Upcoming Encounters Date Type Specialty Care Team Description 03/20/2018 Office Visit Dermatology Rachel Hill MD [address] [place] [address] [phone] 03/21/2018 Imaging Radiology 03/21/2018 Nurse Only Gastroenterology Nurse Anthony Fernandes [address] [place] [address] [phone] 03/28/2018 Office Visit Family Medicine Rajwinder Carter DO [address] [place] [address] [address] [phone] 03/30/2018 Office Visit Gastroenterology Angela Gonzalez, DO [address] [place] [address] [phone] 04/25/2018 Office Visit Gastroenterology Angela Gonzalez, [address] [place] [address] 06/07/2018 Office Visit Gastroenterology Lyssa Stout CRNP [address] [place] [address] [phone] 06/11/2018 Pharmacy Pharmacy [address] [place] [address] [phone] 08/07/2018 Office Visit Sleep Disorders [facility] [address] [facility] [place] [address] [phone] Kent[place], Nurse Sleep Disorders [address] [place] [address] [phone] 12/19/2018 Office Visit Gynecology Obstetrics Irene Mujica CRNP [address] [facility] [place] [address] [phone] Health Maintenance Due Date Last Done Comments [...]
--- OUTSIDE RECORDS SUMMARY | 2023-05-10 23:24 | External Medical Summary ---
Author Name Unknown Address [facility] [place] [address] Phone Organization K01:[place] [address] [id number] Laboratory Report Ordering Provider Test Date Status RENATO FLORESCELY 03/28/2018 16:20:00 Final Observation Date Value Abnormality Reference Status TSH 03/28/2018 22:14 0.02 Below low normal 0.27-4 .2 Final T4, Free 03/28/2018 22:48 1.99 Above high normal 0.9-1 .7 Final Performing Location [facility] [address] [facility] [address]
--- OUTSIDE RECORDS SUMMARY | 2023-05-10 23:24 | External Medical Summary | Summary of Care ---
Author Name Unknown Organization [place] [address] Phone Care Team Providers Care Certified Corporate Travel Executive Name Role Phone ArabellaRajwinder thacker Belen MORENO Primary Care Provider [phone] Reason for Visit * Reason Comments eRx-Medication Refill Encounter Details Date Type Department Care Team Description 03/26/[address] [address] Alexandra Caceres [address] [place] [address] [phone] Allergies Active Allergy Reactions Severity Noted Date [...] Inhaler 1 06/29/2016 Active Vitamin D, Ergocalciferol, 65832 UNITS CapsuleIndications: Vitamin D deficiency 1capsule every other week 8 Cap 6 09/27/2016 Active Blood Glucose Monitoring Suppl (famPlus VERIO) W/DEVICE KITIndications:Type 2 diabetes mellitus with hemoglobin A1c goal of less than 7.0% (HCC) Use as directed. Use daily to check blood sugars DX:E11.9 1 Kit 0 01/17/2017 Active codetagTOUCH ULTRASOFT LANCETS MISCIndications:Typ e 2 diabetes mellitus [...] bedtime 30 Each 3 10/11/2017 Active nystatin 983544 UNIT/GM creamIndications:Ca ndidal vulvovaginitis Apply topically to affected area 2 times a day. To affacted area for two weeks. 15 g 2 10/12/2017 Active Blood Glucose Monitoring Suppl (codetagTOUCH VERIO) w/Device KITIndications:Type 2 diabetes mellitus with [...] anxiety 08/19/2016 02/14/20 18 Hepatic cirrhosis ([facility]) 08/19/2016 03/28/20 17 Polyuria 08/09/2016 01/17/2017 [...] or BMI > 40) ([facility]) 02/09/2015 03/28/2017 THAD (obstructive sleep apnea) [...] pain 01/24/2012 01/17/2017 Genetic Sleep Disorder Research Other*[id number] 05/13/2011 04/07/2016 Obstructive sleep apnea 01/18/2011 12/27/19 [...] Telephone Encounter - Rajwinder Lara DO - 03/26/2018 1:06 PM EDT Signed Prescriptions: Disp Refills cyclobenzaprine (FLEXERIL) 10 MG Tablet 30 Tab 0 Sig: take 1 tablet by mouth at bedtime Authorizing Provider: RAJWINDER LARA * Telephone Encounter - Kiesha Schmitt LPN - 03/26/2018 1:04 PM EDT Pending Prescriptions: Disp Refills cyclobenzaprine (FLEXERIL) 10 MG Tablet [*30 Tab 0 Sig: take 1 tablet by mouth at bedtime * Telephone Encounter - Kiesha Schmitt LPN - 03/26/2018 1:03 PM EDT Formatting of this note may be different from the original. FAX REFILL PROCESS: Last Office Visit: 02/13/2018 Next Office Visit: 03/28/2018 Scheduled Provider(s): Rajwinder Lara DO Date of last refill for this med: 02/15/2018 PCP: Rajwinder Lara DO Patient Active Problem List Diagnosis Code Spinal stenosis of lumbar region without neurogenic claudication M48.061 Cerebral palsy ([facility]) G80.9 HTN, goal below 140/90 I10 Chronic rhinitis J31.0 NG (nonalcoholic steatohepatitis) K75.81 Stasis dermatitis I87.2 DDD (degenerative disc disease), lumbar M51.36 Intermittent asthma with reliever use up to twice per week J45.20 Lymphedema I89.0 Type 2 diabetes mellitus with hemoglobin A1c goal of less than 7.0% ([facility]) E11.9 Vitamin D deficiency E55.9 Restrictive lung disease J98.4 Dyslipidemia, goal LDL below 70 E78.5 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 R39.81 Acquired hypothyroidism E03.9 Chronic pain syndrome G89.4 MEDICATION USE AGREEMENT LM4221 History of Clostridium difficile colitis Z86.19 Cirrhosis of liver ([facility]) K74.60 THAD on CPAP G47.33, Z99.89 LABS: CREATININE(mg/dL) Lucio Dt/Tm Resulted Value Status 02/13/18 3:27P 02/13/18 0.7 FINAL POTASSIUM(mmol/L) Lucio Dt/Tm Resulted Value Status 02/13/18 3:27P 02/13/18 4.2 FINAL TSH(uIU/mL) Lucio Dt/Tm Resulted Value Status 02/13/18 3:27P 18 0.01* FINAL LDL (DIRECT MEASURE)(mg/dL) Lucio Dt/Tm Resulted Value Status 10/11/17 1:18P 10/11/17 57 FINAL 02/01/17 11:19A 02/01/17 101 FINAL ALT(U/L) Lucio Dt/Tm Resulted Value Status 02/13/18 3:27P 02/13/18 26 FINAL Hemoglobin AIC Results: HEMOGLOBIN, A1C(%) Lucio Dt/Tm Resulted Value Status 02/13/18 3:27P 02/13/18 7.1* FINAL 10/11/17 1:18P 10/11/17 6.9* FINAL 03/28/17 3:31P 03/28/17 6.6* FINAL * Telephone Encounter - Jovana Lambert RN - 03/26/2018 11:54 AM EDT Pending Prescriptions: Disp Refillscyclobenzaprine (FLEXERIL) 10 MG Tablet [*30 Tab 0Sig: take 1 tablet by mouth at bedtime in this encounter Plan of Treatment Upcoming Encounters Date Type Specialty Care Team Description 03/26/2018 Nurse Only Gastroenterology Nurse Anthony Fernandes [address] [place] [address] [phone] 03/28/2018 Office Visit Family Medicine Rajwinder Lara DO [address] [place] [address] [address] 03/30/2018 Office Visit Gastroenterology Angela Gonzalez, DO [address] [place] [address] [phone] 04/25/2018 Office Visit Gastroenterology Angela Gonzalez, DO [address] [place] [address] [phone] 06/07/2018 Office Visit Gastroenterology Lyssa Stout [facility] [address] [facility] [address] [phone] 06/11/2018 Pharmacy Pharm[address] [address] [phone] 08/07/2018 Office Visit Sleep Disorders Lanette Fields CRNP [address] [place] [address] [phone] Kentrell, Nurse Sleep Disorders [address] [place] [address] [phone] 08/23/2018 Office Visit Dermatology Rachel Hill MD [address] [place] [address] [phone] 12/19/2018 Office Visit Gynecology Obstetrics Irene Mujica CRNP [address] [place] [place] [address] [phone] Health Maintenance Due Date Last Done Comments [...]
--- OUTSIDE RECORDS SUMMARY | 2023-05-10 23:24 | External Medical Summary | Summary of Care ---
Author Name Unknown Organization [place] [address] Phone Care Team Providers Care Hat Braider Name Role Phone Arabellakirstie Rajwinder Belen MORENO Primary Care Provider [phone] Encounter Details Date Type Department Care Team Description 02/11/2018 Scan Encounter Sleep Disorders, [facility] [address] [facility] [place] [address] Lanette Fields CRNP [address] [facility] [address] <No scans attached> Allergies Active Allergy [...] Inhaler 1 06/29/2016 Active Vitamin D, Ergocalciferol, 13722 UNITS CapsuleIndications:Vi tamin D deficiency 1capsule every other week 8 Cap 6 09/27/2016 Active Blood Glucose Monitoring Suppl (TekLinksTOUCH VERIO) W/DEVICE KITIndications:Type 2 diabetes mellitus with hemoglobin A1c goal of less than 7.0% (HCC) Use as directed. Use daily to check blood sugars DX:E11.9 1 Kit 0 01/17/2017 Active ONETOUCH ULTRASOFT LANCETS MISCIndications:Type 2 diabetes mellitus with [...] bedtime 30 Each 3 10/11/2017 Active nystatin 199317 UNIT/GM creamIndications:Cand idal vulvovaginitis Apply topically to affected area 2 times a day. To affacted area for two weeks. 15 g 2 10/12/2017 Active Blood Glucose Monitoring Suppl (Penana VERIO) w/Device KITIndications:Type 2 diabetes mellitus with hemoglobin A1c goal of less than 7.0% (HCC) Use up to 4 times a day E11.9 1 Kit 0 10/17/2017 Active gabapentin (NEURONTIN) 300 MG Capsule One pill in am, one midday, two in pm, as directed, increase up to 2 capsules 3 times daily 180 Cap 5 11/16/2017 Active Glucose Blood (TekLinksTOUCH VERIO) STRP Use up to four times [...] at bedtime. 30 Tab 5 01/10/2018 Active as of this encounter Active Problems [...] than 7.0% ([facility]) 09/26/2013 Overview: ICD-10 update of inactive term Vitamin D deficiency 09/26/2013 Lymphedema 03/11/2013 Intermittent asthma with reliever use up to twice per week 01/09/2013 Stasis dermatitis 05/07/2012 NG (nonalcoholic steatohepatitis) 04/12 HTN, goal below 140/90 03/27/2012 Chronic rhinitis 03/27/2012 Cerebral palsy ([facility]) 01/24/2012 Spinal stenosis of lumbar region [...] to 59.9 in adult ( [facility]) 06/12/2017 12/19/2017 Overview: Per Obesity protocol #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 7 02/13/2018 Atypical chest pain 08/19/2016 01/17/2017 Depression with anxiety 08/19/2016 02/14/20 18 Hepatic cirrhosis ([facility]) 08/19/2016 03/28/20 17 Polyuria 08/09/2016 01/17/2017 Urinary frequency 08/09/2016 01/17/2017 Generalized OA 06/14/2016 03/28/2017 Body mass index (BMI) of 45.0-49.9 in adult ([facility] ) 12/09/2015 01/17/2017 Overview: bmi= 48.04 12/09/15 Need for shingles vaccine 12/09/20152015 Bilateral shoulder pain 08/25/2015 06/07/20 16 Bilateral shoulder pain 07/16/2015 06/07/20 16 Cerebral palsy ([facility]) 04/23/2015 03/28/2017 Candidal vulvovaginitis 02/12/2015 06/07/20 16 Obesity, morbid (more than 1 00 lbs over ideal weight or BMI > 40) ([facility]) 02/09/2015 03/28/2017 THAD (obstructive sleep apnea) [...] > 40) ([facility]) 10/28/2013 01/17/2017 Overview: bmi= 53.93 10/28/13 [...] > 40) ([facility]) 05/25/2012 01/17/2017 Overview: BMI= 55.27 05/25/12 [...] pain 01/24/2012 01/17/2017 Genetic Sleep Disorder Research Other*[id number] 05/13/2011 04/07/2016 Obstructive sleep apnea 01/18/2011 12/27/19 [...] Encounters Date Type Specialty Care Team Description 03/15/2018 Imaging Radiology 03/15/2018 Nurse Only Gastroenterology Dom, Nurse Anthony Ritchie [address] [facility] [address] [phone] 03/20/2018 Office Visit Dermatology Rachel Hill MD [address] [place] [address] [phone] 03/28/2018 Office Visit Family Medicine Rajwinder Carter DO [address] [place] [facility] [address] [phone] 03/30/2018 Office Visit Gastroenterology Angela Gonzalez, DO [address] [place] [address] [phone] 04/25/2018 Office Visit Gastroenterology Angela Gonzalez, DO [address] [place], [place] [address] 06/07/2018 Office Visit Gastroenterology Lyssa Stout CRNP [address] [facility] [address] [phone] 06/11/2018 Pharmacy Pharmacy [facility] [address] [facility] [address] [phone] 08/07/2018 Office Visit Sleep Disorders Lanette Fields CRNP [address] [place] [address] [phone] Nurse Kentrell Sleep Disorders [address] [place] [address] [phone] 12/19/2018 Office Visit Gynecology Obstetrics Irene Mujica CRNP [address] [place] [address] [phone] Health Maintenance Due Date Last Done Comments [...]
--- OUTSIDE RECORDS SUMMARY | 2023-05-10 23:24 | External Medical Summary | Summary of Care ---
Author Name Unknown Organization [place] [address] Phone Care Team Providers Care Mason Tender Name Role Phone Rajwinder Carter DO Primary Care Provider [phone] Reason for Visit * Reason Comments MEDICATION QUESTION Encounter Details Date Type Department Care Team Description 04/02/2018 Telephone [place] [address] [place] [address] Rajwinder Carter DO [address] [place] [address] [phone] MEDICATION QUESTION Allergies Active Allergy Reactions Severity [...] bedtime 30 Each 3 10/11/2017 Active nystatin 669704 UNIT/GM creamIndications:Ca ndidal vulvovaginitis Apply topically to affected area 2 times a day. To affacted area for two weeks. 15 g 2 10/12/2017 Active Blood Glucose Monitoring Suppl (WikiYouUCH VERIO) w/Device KITIndications:Type 2 diabetes mellitus with hemoglobin A1c goal of less than 7.0% (HCC) Use up to 4 times a day E11.9 1 Kit 0 10/17/2017 Active gabapentin (NEURONTIN) 300 MG Capsule One pill in am, one midday, two in pm, as directed, increase up to 2 capsules 3 times daily 180 Cap 5 11/16/2017 Active Glucose Blood (WikiYouUCH VERIO) STRP Use up to four times [...] of less than 7.0% ([facility]) Use with Basaglar at bedtime. 30 Each 11 03/12/2018 Active insulin glargine (LANTUS SOLOSTAR) 100 UNIT/ML SOPNIndications:Typ e 2 diabetes mellitus with hemoglobin A1c goal of less than 7.0% ([facility]) Inject 24 units at bed time 5 Pre-filled Pen Syringe Dosing Unit 3 03/12/2018 Active Dulaglutide (TRULICITY) 1.5 MG/0.5ML SOPNIndications:Typ e 2 diabetes mellitus with hemoglobin A1c goal of less than 7.0% ([facility]) Inject 1 syringeful once weekly [...] less than 7.0% ([facility]) 09/26/2013 Overview: ICD-10 update of [...] of 50.0 to 59.9 in adult ( [facility]) 06/12/2017 12/19/2017 Overview: Per Obesity protocol #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 7 02/13/2018 Atypical chest pain 08/19/2016 01/17/2017 Depression with anxiety 08/19/2016 02/14/20 18 Hepatic cirrhosis ([facility]) 08/19/2016 03/28/20 17 Polyuria 08/09/2016 01/17/2017 Urinary frequency 08/09/2016 01/17/2017 Generalized OA 06/14/2016 03/28/2017 Body mass index (BMI) of 45.0-49.9 in adult ([facility] ) 12/09/2015 01/17/2017 Overview: bmi= 48.04 12/09/15 Need for shingles vaccine 12/09/20152015 Bilateral shoulder pain 08/25/2015 06/07/20 16 Bilateral shoulder pain 07/16/2015 06/07/20 16 Cerebral palsy ([facility]) 04/23/2015 03/28/2017 Candidal vulvovaginitis 02/12/2015 06/07/20 16 Obesity, morbid (more than 1 00 lbs over ideal weight or BMI > 40) ([facility]) 02/09/2015 03/28/2017 THAD (obstructive sleep [...] or BMI > 40) ([facility]) 10/28/2013 01/17/2017 Overview: bmi= 53.93 [...] or BMI > 40) ([facility]) 05/25/2012 01/17/2017 Overview: BMI= 55.27 [...] pain 01/24/2012 01/17/2017 Genetic Sleep Disorder Research Other*[id number] 05/13/2011 04/07/2016 Obstructive sleep apnea 01/18/2011 12/27/19 [...] or BMI > 40) ([facility]) 12/08/2009 07/02/2014 Overview: Per Obesity [...] PM EDT Patient transferred to [facility] [employer] [facility] Pharmacy Refill Call Center 04/03/2018,1:05 PM * [...] order? * Telephone Encounter - Shanel Rain, road contractor - 04/02/2018 2:38 PM EDT The pt [...] sent. The pt can be reached at [phone] Please advise Shanel Jiang Propagation Manager Pharmacy Refill Call Center 04/02/2018,2:40 PM in this encounter Plan of Treatment Upcoming Encounters Date Type Specialty Care Team Description 04/11/2018 Office Visit Gastroenterology Lyssa Stout CRNP [address] [place] [address] [phone] 04/23/2018 Nutrition Services Gastroenterology Melissa Omalley, RDN [address] [facility] [address] [place] [address] [phone] 05/16/2018 Office Visit Family Medicine Rajwinder Carter DO [address] [place] [address] [address] [phone] 06/07/2018 Office Visit Gastroenterology Lyssa Stout CRNP [address] [place] [address] [phone] 06/11/2018 Pharmacy Pharmacy [facility] [address] [place] [address] [phone] 08/07/2018 Office Visit Sleep Disorders [facility]ette Fields CRNP [address] [facility] [address] [phone] [place], Sleep Disorders [address] [facility] [place] [address] [phone] 08/23/2018 Office Visit Dermatology Rachel Hill MD [address] [place] [address], [place] [address] [phone] 09/26/2018 Nurse Only Gastroenterology Dom, Nurse Gastro [place]au [address] [facility] [address] 12/19/2018 Office Visit Gynecology Obstetrics Irene Mujica CRNP [address] [facility] [address] Scheduled Tests Name Priority Associated Diagnoses Order [...]
--- OUTSIDE RECORDS SUMMARY | 2023-05-10 23:24 | External Medical Summary | Summary of Care ---
Author Name Unknown Organization [place] [address] Phone Care Team Providers Care Radio Performer Name Role Phone ArabellaRajwinder thacker Belen MORENO Primary Care Provider Reason for Visit * Reason Comments APPOINTMENT Encounter Details Date Type Department Care Team Description 03/20/2018 Telephone Gastroenterology, [facility] [address] [facility] [place] [address] Lyssa Stout CRNP 132 [facility] [place] [address] [phone] APPOINTMENT Allergies Active Allergy Reactions Severity Noted Date [...] Inhaler 1 06/29/2016 Active Vitamin D, Ergocalciferol, 18493 UNITS CapsuleIndications:Vi tamin D deficiency 1capsule every other week 8 Cap 6 09/27/2016 Active Blood Glucose Monitoring Suppl (SureWavesUCH VERIO) W/DEVICE KITIndications:Type 2 diabetes mellitus with hemoglobin A1c goal of less than 7.0% (HCC) Use as directed. Use daily to check blood sugars DX:E11.9 1 Kit 0 01/17/2017 Active Async TechnologiesTOUCH ULTRASOFT LANCETS MISCIndications:Type 2 diabetes mellitus with [...] bedtime 30 Each 3 10/11/2017 Active nystatin 202352 UNIT/GM creamIndications:Cand idal vulvovaginitis Apply topically to affected area 2 times a day. To affacted area for two weeks. 15 g 2 10/12/2017 Active Blood Glucose Monitoring Suppl (MyOptique Group VERIO) w/Device KITIndications:Type 2 diabetes mellitus with [...] Pen Syringe Dosing Unit 5 03/12/2018 Active as of this encounter Active [...] goal of less than 7.0% (HCC) 09/26/2013 Overview: ICD-10 update of inactive term [...] BMI > 40) ([facility]) 02/09/2015 03/28/2017 THAD (obstructive sleep apnea) 02/09/2015 [...] pain 01/24/2012 01/17/2017 Genetic Sleep Disorder Research Other*[id number] 05/13/2011 04/07/2016 Obstructive sleep apnea 01/18/2011 12/27/19 [...] Miscellaneous Notes * Telephone Encounter - Marie Duque THAD - 03/20/2018 3:41 PM EDT Pt was called and scheduled for 03/26 at 2pm * Telephone Encounter - Quyen Tate THAD - 03/20/2018 1:33 PM EDT Pt calling to cancel her nurse visit for 03/21 at 2 pm pt would like to reschedule for 03/26 at 2 pm slots are private and can not schedule. Please contact pt. Thank you. in this encounter Plan of Treatment Upcoming Encounters Date Type Specialty Care Team Description 03/26/2018 Imaging Radiology 03/26/2018 Nurse Only Gastroenterology Nurse Anthony Fernandes [address] [place] [address] [phone] 03/28/2018 Office Visit Family Medicine Rajwinder Carter DO [address] [place] [facility] [place] [address] [phone] 03/30/2018 Office Visit Gastroenterology Angela Gonzalez, [address] [place] [address] [phone] 04/25/2018 Office Visit Gastroenterology Angela Gonzalez, DO [address] [place] [address] [phone] 06/07/2018 Office Visit Gastroenterology Lyssa Stout CRNP 132 [facility] [place] [address] [phone] 06/11/2018 Pharmacy Pharmacy [facility] [address] [place] [address] [phone] 08/07/2018 Office Visit Sleep Disorders [facility] Fields CR[facility] [address] [phone] [place], Nurse Sleep Disorders [facility] [address] [phone] 08/23/2018 Office Visit Dermatology Rachel Hill MD [address] [place] [address], [place] [address] [phone] 12/19/2018 Office Visit Gynecology Obstetrics Irene Mujica CRNP [facility] [address] [phone] Health Maintenance Due Date Last Done Comments [...]
--- OUTSIDE RECORDS SUMMARY | 2023-05-10 23:24 | External Medical Summary | Summary of Care ---
Author Name Unknown Organization [place] [address] Phone Care Team Providers Care Change Management Lead Name Role Phone ArabellaRajwinder thacker Primary Care Provider [phone] Reason for Visit * Reason Comments APPOINTMENT Encounter Details Date Type Department Care Team Description 03/30/2018 Telephone Gastroenterology [address] [place] [address] Lyssa Stout CRNP 132 [facility] [place] [address] [phone] APPOINTMENT Allergies Active Allergy Reactions Severity Noted [...] bedtime 30 Each 3 10/11/2017 Active nystatin 764963 UNIT/GM creamIndications:Cand idal vulvovaginitis Apply topically to affected area 2 times a day. To affacted area for two weeks. 15 g 2 10/12/2017 Active Blood Glucose Monitoring Suppl (Minoryx TherapeuticsIO) w/Device KITIndications:Type 2 diabetes mellitus with hemoglobin A1c goal of less than 7.0% (HCC) Use up to 4 times a day E11.9 1 Kit 0 10/17/2017 Active gabapentin (NEURONTIN) 300 MG Capsule One pill in am, one midday, two in pm, as directed, increase up to 2 capsules 3 times daily 180 Cap 5 11/16/2017 Active Glucose Blood (WhirlpoolUCH [employer]) STRP Use up to four times a [...] at bedtime. 30 Tab 5 03/28/2018 Active as of this encounter Active Problems [...] [facility]) 02/09/2015 03/28/2017 THAD (obstructive sleep apnea) [...] pain 01/24/2012 01/17/2017 Genetic Sleep Disorder Research Other*[id number] 05/13/2011 04/07/2016 Obstructive sleep apnea 01/18/2011 12/27/19 [...] Telephone Encounter - Lyssa Stout CRNP - 03/30/2018 9:48 AM EDT I would like to discuss medication changes (atenolol to a non selective beta roxana for varices) with patient and it'll be best if we discuss this over a clinic appointment. Can you please contact her to schedule a clinic f/u with me? Please also remind her to bring all of her meds for her appointment so we can reconcile them ZAK Schreiber in this encounter Plan of Treatment Upcoming Encounters Date Type Specialty Care Team Description 03/30/2018 Office Visit Gastroenterology Angela Gonzalez, [address] [place], [place] [id number] Arrived 04/25/2018 Office Visit Gastroenterology Angela Gonzalez, [address], [place] [address] 04/25/2018 Nurse Only Gastroenterology Nurse Anthony Fernandes [address] [facility] [place] [address] [phone] 05/16/2018 Office Visit Family Medicine Rajwinder Carter DO [address] [place] [address] [phone] 06/07/2018 Office Visit Gastroenterology Lyssa Stout CRNP [address] [facility] [place] [address] [phone] 06/11/2018 Pharmacy Pharmacy [facility] [address] [facility] [place] [address] [phone] 08/07/2018 Office Visit Sleep Disorders [facility] Fields CRNP [facility] [place] [address] [phone] [place], Nurse Sleep Disorders 132 [facility] [place] [address] [phone] 08/23/2018 Office Visit Dermatology Rachel Hill MD [address] [place] [address] [phone] 09/26/2018 Nurse Only Gastroenterology Nurse Anthony Fernandes [facility] [place] [address] [phone] 12/19/2018 Office Visit Gynecology Obstetrics Irene Mujica CRNP 132 [facility] [place] [address] [phone] Health Maintenance Due Date Last Done Comments [...]
--- OUTSIDE RECORDS SUMMARY | 2023-05-10 23:24 | External Medical Summary | Summary of Care ---
Author Name Unknown Organization [place] [address] Phone Care Team Providers Care Heel Sewer Name Role Phone ArabellaRajwinder thacker Primary Care Provider [phone] Reason for Visit * Reason Comments APPOINTMENT Encounter Details Date Type Department Care Team Description 03/30/2018 Telephone Gastroenterology [address] [place] [address] Lyssa Stout CRNP 132 [facility] [place] [address] [phone] APPOINTMENT Allergies Active Allergy Reactions Severity Noted [...] bedtime 30 Each 3 10/11/2017 Active nystatin 965774 UNIT/GM creamIndications:Cand idal vulvovaginitis Apply topically to affected area 2 times a day. To affacted area for two weeks. 15 g 2 10/12/2017 Active Blood Glucose Monitoring Suppl (Latimer EducationIO) w/Device KITIndications:Type 2 diabetes mellitus with hemoglobin A1c goal of less than 7.0% (HCC) Use up to 4 times a day E11.9 1 Kit 0 10/17/2017 Active gabapentin (NEURONTIN) 300 MG Capsule One pill in am, one midday, two in pm, as directed, increase up to 2 capsules 3 times daily 180 Cap 5 11/16/2017 Active Glucose Blood (EndoGastric SolutionsUCH VERNeuroTronik) STRP Use up to four times a [...] Date Bladder tumor 10/11/2017 02/13/2018 Chronic indwelling Clien [...] BMI > 40) ([facility]) 02/09/2015 03/28/2017 THAD (obstructive sleep [...] pain 01/24/2012 01/17/2017 Genetic Sleep Disorder Research Other*[id number] 05/13/2011 04/07/2016 Obstructive sleep apnea 01/18/2011 12/27/19 [...] Telephone Encounter - Dominga Blackwell OSA - 03/30/2018 11:08 AM EDT Patient is scheduled to see Lyssa on 04/11 and she is aware to bring her meds with her. * Telephone Encounter - Lyssa Stout CRNP [...] Lyssa Stout CRNP [address] [place] [address] [phone] 04/23/2018 Nutrition Services Gastroenterology Melissa Omalley, RDN [address] [place] [address] [place] [id number] 05/16/2018 Office Visit Family Medicine Rajwinder Carter DO [address] [place] [address] [phone] 06/07/2018 Office Visit Gastroenterology Lyssa Stout CRNP 132 [facility] [place] [address] [phone] 06/11/2018 Pharmacy Pharmacy [facility] [address] [facility] [address] [phone] 08/07/2018 Office Visit Sleep Disorders Lanette Fields CRNP 132 [facility] [place] [address] [phone] Nurse [place] Sleep [facility] [place] [address] [phone] 08/23/2018 Office Visit Dermatology Rachel Hill MD [address] [place] [address], [place] [address] [phone] 09/26/2018 Nurse Only Gastroenterology Dom, Gastro Chau 132 [facility] [place] [address] [phone] 12/19/2018 Office Visit Gynecology Obstetrics Irene Mujica CRNP 132 [facility] [place] [address] [phone] Health Maintenance Due Date Last Done Comments [...]
--- OUTSIDE RECORDS SUMMARY | 2023-05-10 23:24 | External Medical Summary | Summary of Care ---
Author Name Unknown Organization [place] [address] Phone Care Team Providers Care Swim Instructor Name Role Phone ArabellaRajwinder thacker Belen MORENO Primary Care Provider [phone] Reason for Visit * Reason Comments Weight Management Medical Management Encounter Details Date Type Department Care Team Description 03/30/2018 Office Visit Nutrition & Weight Management, [facility] 132 [facility] [place] [address] Angela Gonzalez DO [address] [place] [address] Abnormal weight gain*;BMI 50.0-59.9, adult ([facility]);Type 2 diabetes mellitus with hemoglobin A1c goal of less than 7.0% ([facility]);Acquired hypothyroidism Allergies Active Allergy Reactions Severity Noted [...] bedtime 30 Each 3 10/11/2017 Active nystatin 776553 UNIT/GM creamIndications:Cand idal vulvovaginitis Apply topically to affected area 2 times a day. To affacted area for two weeks. 15 g 2 10/12/2017 Active Blood Glucose Monitoring Suppl (FiberLight) w/Device KITIndications:Type 2 diabetes mellitus with hemoglobin A1c goal of less than 7.0% (HCC) Use up to 4 times a day E11.9 1 Kit 0 10/17/2017 Active gabapentin (NEURONTIN) 300 MG Capsule One pill in am, one midday, two in pm, as directed, increase up to 2 capsules 3 times daily 180 Cap 5 11/16/2017 Active Glucose Blood (Airway Therapeutics VERCodagenix[employer].) STRP Use up to four times a [...] Tab by mouth daily. 0 03/26/2018 Active as of this encounter Active Problems [...] of less than 7.0% ([facility]) 09/26/2013 Overview: ICD-10 update of inactive [...] mass index (BMI) of 45.0-49.9 in adult ([facility] ) 12/09/2015 01/17/2017 Overview: bmi= 48.04 12/09/15 Need for shingles vaccine 12/09/20152015 Bilateral shoulder pain 08/25/2015 06/07/20 16 Bilateral shoulder pain 07/16/2015 06/07/20 16 Cerebral palsy ([facility]) 04/23/2015 03/28/2017 Candidal vulvovaginitis 02/12/2015 06/07/20 16 Obesity, morbid (more than 1 00 lbs over ideal weight or BMI > 40) ([facility]) 02/09/2015 03/28/2017 THAD (obstructive sleep apnea) [...] or BMI > 40) ([facility]) 10/28/2013 01/17/2017 Overview: bmi= 53.93 10/28/13 [...] or BMI > 40) ([facility]) 05/25/2012 01/17/2017 Overview: BMI= 55.27 05/25/12 [...] pain 01/24/2012 01/17/2017 Genetic Sleep Disorder Research Other*[id number] 05/13/2011 04/07/2016 Obstructive sleep apnea 01/18/2011 12/27/19 [...] Vital Sign Reading Time Taken Blood Pressure 134/76 03/30/2018 10:16 AM EDT Pulse 72 03/30/2018 10:16 AM EDT Temperature - - Respiratory Rate - - Oxygen Saturation - - Inhaled Oxygen Concentration - - Weight 114.5 kg (252 lb 6.4 oz) 018 10:16 AM EDT Height - - Body Mass Index 50.98 03/30/2018 10:16 AM EDT in this encounter Instructions * Patient Instructions - Angela Gonzalez, - 03/30/2018 10:49 AM EDT GOALS: 1. Substitute bread for whole grain/wheat sandwich thins 2. Continue eat fruits & vegetables 3. Continue to do exercises - Do not skip meals--eat 3 meals a day with 1-3 low calorie snacks (100-150 calories per snack) - Eat foods high in vegetables & fruits, lean proteins, healthy fats (olive oils, avocados, etc), fiber, and whole grains - Increase fruit and vegetable servings to 5-6 per day - Drink plenty of water--aim for at least 64oz a day - Limit processed foods, excess sugar, & fried foods - Eat slowly, take 20-30 minutes for each meal - Avoid sugar sweetened drinks including regular sodas, sweet tea, and fruit juice - Diet changes should be seen a new way of eating for life rather than a "diet" to lose weight - Increase physical activity--taking stairs, parking farther away, get 10,000 steps a day - Try to get at least 30min of exercise 5 days a week (can be broken up into 10min intervals throughout the day if needed) in this encounter Progress Notes * Angela Gonzalez, - 03/30/2018 10:41 AM EDT Formatting of this note may be different from the original. Comprehensive Weight Management Clinic Note Shainajosé miguel Bustos presents in follow up to the comprehensive weight management clinic. The patient is a 62 year old female with PMH significant for cerebral palsy, DJD, T2DM, DLD, hypothyroidism, GERD, steatohepatitis, nonsuicidal depression, anxiety, DJD, & obesity whom we have been following since 2012. Her weight at that time was 276lbs. Wt Readings from Last 6 Encounters: 03/30/18 114.5 kg (252 lb 6.4 oz) 03/08/18 113.7 kg (250 lb 11.2 oz) 02/23/18 118.8 kg (262 lb) 02/21/18 118.8 kg (262 lb) 12/26/17 115.1 kg (253 lb 12.8 oz) 12/19/17 117.5 kg (259 lb) Patient is receiving ongoing education regarding dietary and physical modifications for weight loss. Patient is interested in the following treatment options for obesity: medical management. The patient was last seen in this clinic 02/21/2018. Since that time the patient's weight has decreased -10lbs. The patient's total weight change is -24lbs. Today's visit (03/2018) - accompanied by caregiver who has been helping pt with diet changes & has been logging pt's calories on [employer] - pt has been making diet changes--is decreasing bread intake, eating sugar free snacks - reports last few weeks have been stressful, her was in the hospital recently - reports no changes to current meds Review of Systems: The patient denies any chest pain, shortness of breath, palpitations or ankle edema. Since her lastvisit there have been no problems with Abdominal pain / cramps, Anxiety / nervousness and Diarrhea. Current Medications: Current Outpatient Prescriptions Medication Sig Dispense Refill citalopram (CELEXA) 40 MG Tablet Take 1 Tab by mouth daily. 0 cephalexin (KEFLEX) 250 MG Capsule Take 1 [...] Pre- filled Pen Syringe Dosing Unit 5 Hydrocodone-Acetaminophen 10-325 MG per tablet take 1 tablet by mouth twice a day if needed for pain 60 Tab 0 insulin glargine (LANTUS SOLOSTAR) 100 UNIT/ML SOPN Inject 24 units at bed time 5 Pre-filled Pen Syringe Dosing Unit 3 vitamin c (ASCORBIC ACID) 500 MG Tablet Take 500 mg by mouth daily. levothyroxine (LEVOXYL) 100 MCG Tablet Take 1 Tab by mouth daily. (at least 30 min prior to breakfast or other meds) 30 Tab 5 levothyroxine (LEVOXYL) 75 MCG Tablet Take 1 Tab by mouth daily. (at least 30 min prior to breakfast or other meds) Take with 100mcg to equal 175mcg 30 Tab 11 escitalopram (LEXAPRO) 10 MG Tablet Take 1.5 [...] mouth daily. 90 Cap 1 Glucose Blood (FundRazrTOUCH VERIO) STRP Use up to four times a day as directed.DX:E11.9 400 Strip 3 gabapentin (NEURONTIN) 300 MG Capsule One pill in am, one midday, two in pm, as directed, increase up to 2 capsules 3 times daily 180 Cap 5 Blood Glucose Monitoring Suppl (Airway Therapeutics VERCodagenix, Inc.) w/Device KIT Use up to 4 times a day E11.9 1 Kit 0 nystatin 410714 UNIT/GM cream Apply topically to affected area [...] 1 vial in nebulizer 180 mL 0 atenolol (TENORMIN) 25 MG Tablet Take 1 Tab by mouth at bedtime. 30 Tab 5 atorvaSTATin (LIPITOR) 40 MG [...] 0 NEBULIZER KORTNEY as directed 1 0 Water intake: yes Prescribed diet: 2433-4492 Low Fat CHO Modified Diet Current diet: Breakfast: eggs & piece of toast Snack: none Lunch: sandwich or tuna fish with crackers Snack: cookies (sugar free) Dinner: tuna casserole Snack: ice cream (sugar free) Drinks: water or diet tea Restaurant meals: rarely Food logs: Yes and reviewed with patient today Type of exercise: leg exercises & motion exercises with arms (in wheelchair, uses walker for short distances) Exercise: Times per week: - Minutes per day: - Weight loss Pharmacotherapy: no BP 134/76 | Pulse 72 | Wt 252 lbs 6.4 oz (114.488kg) | BMI 50.98 kg/m | BSA 2.18 m PHYSICAL EXAMINATION: General: no acute distress, well groomed, well developed, well nourished HEENT: unremarkable, NC/AT, sclera nonicteric, MMM, neck is supple with full range of motion Heart: normal S-1 and S-2. RRR, no murmurs or ectopy Lungs: normal respiratory effort, clear to auscultation, no wheezing/rhonchi/rales Abdomen: soft, obese, non-distended, non tender, normoactive bowel sounds; no rebound/guarding Extremities: +b/l LE edema Skin: warm, dry; no obvious rashes Neuro: +wheelchair bound; speech is normal pitch and tone, no gross motor/sensory deficits Psych: normal mood & affect Assessment: Morbid Obesity: The above meal plan was reviewed again in detail with Shaina Bustos. She will continue to increase her physical activity as prescribed. Continue to avoid all fruit juices and regular sodas. Increase water consumption to 64 ounces per day. Encourage to keep food logs and get weighed on a weekly basis. GOALS: 1. Substitute bread for whole grain/wheat sandwich thins 2. Continue eat fruits & vegetables 3. Continue to do exercises - Do not skip meals--eat 3 meals a day with 1-3 low calorie snacks (100-150 calories per snack) - Eat foods high in vegetables & fruits, lean proteins, healthy fats (olive oils, avocados, etc), fiber, and whole grains - Increase fruit and vegetable servings to 5-6 per day - Drink plenty of water--aim for at least 64oz a day - Limit processed foods, excess sugar, & fried foods - Eat slowly, take 20-30 minutes for each meal - Avoid sugar sweetened drinks including regular sodas, sweet tea, and fruit juice - Diet changes should be seen a new way of eating for life rather than a "diet" to lose weight - Increase physical activity--taking stairs, parking farther away, get 10,000 steps a day - Try to get at least 30min of exercise 5 days a week (can be broken up into 10min intervals throughout the day if needed) (R63.5) Abnormal weight gain (primary encounter diagnosis) (Z68.43) BMI 50.0-59.9, adult (HCC) - pt is overall doing well & continues to work on positive lifestyle changes - encouraged pt to continue to log calories - encouraged pt to develop a diet that is high in vegetables & fruits, lean proteins, healthy fats, fiber, and whole grain carbs - limit processed foods, excess sugar, sugar sweetened beverages, & fried foods - see goals above - return to clinic in 4wks with RD (E11.9) Type 2 diabetes mellitus with hemoglobin A1c goal of less than 7.0% (HCC) - follows with PCP - currently on insulin, trulicity, & metformin (E03.9) Acquired hypothyroidism - currently on levotyroxine The patient will return to the Weight Management Clinic in 4 weeks. She was instructed to call in the meantime with any questions or concerns prior to her next clinic visit. Time spent with patient 15 minutes. More than 50% of my time spent with patient providing counseling about the benefits of weight loss, about his/her nutritional status, detailed explanations about calorie count, types of nutrients to choose, and composition of the meals. Motivational interview pro vided in order to prepare the patient to achieve future goals. The patient agreed to try all the plan discussed and return in one month Angela Gonzalez DO in this encounter Nursing Notes * Alirio Corcoran LPN - 03/30/2018 10:10 AM EDT Formatting of this note may be different from the original. Pt verified identity by last name and date. Chief Complaint Patient presents with Weight Management Medical Management in this encounter Plan of Treatment Upcoming Encounters Date Type Specialty Care Team Description 04/11/2018 Office Visit Gastroenterology Lyssa Stout CRNP [address] [place] [address] 04/23/2018 Nutrition Services Gastroenterology Melissa Omalley RDN [address] [place] [address] [place] [address] 05/16/2018 Office Visit Family Medicine Rajwinder Carter DO [address] [place] [address] [phone] 06/07/2018 Office Visit [facility]astroenterology [facility] [place] [address] [phone] 06/11/2018 Pharm[facility] [address] [facility] [place] [address] [phone] 08/07/2018 Office Visit Sleep Disorders Lanette Fields CRNP 132 [facility] [place] [address] [phone] Gw, Nurse Sleep Disorders 132 [facility] [place] [address] [phone] 08/23/2018 Office Visit Dermatology Rachel Hill MD [address] [place] [address], [place] [address] [phone] 09/26/2018 Nurse Only Gastroenterology Dom, Gastro Chau 132 [facility] [place] [address] [phone] 12/19/2018 Office Visit Gynecology Obstetrics Irene Mujica CRNP 132 [facility] [place] [address] [phone] Health Maintenance Due Date Last Done Comments [...] fileas of this encounter Visit Diagnoses Diagnosis Abnormal weight gain - Prima ry BMI 50.0-59.9, adult (HCC) Body Mass Index 50.0-59.9, adult Type 2 diabetes mellitus wit h hemoglobin A1c goal of less than 7.0% (HCC) Acquired hypothyroidism Unspecified hypothyroidism in this encounter
--- OUTSIDE RECORDS SUMMARY | 2023-05-10 23:24 | External Medical Summary | Summary of Care ---
Author Name Unknown Organization [place] [address] Phone Care Team Providers Care Rn Clinical Research Name Role Phone ArabellaRajwinder thacker Primary Care Provider Reason for Visit * Reason Comments IMMUNIZATIONS Encounter Details Date Type Department Care Team Description 03/09/2018 Telephone Gastroenterology, [facility] 132 [facility] [place] [address] Lyssa Stout CRNP 132 [facility] [place] [address] [phone] IMMUNIZATIONS Allergies Active Allergy Reactions Severity Noted Date [...] Inhaler 1 06/29/2016 Active Vitamin D, Ergocalciferol, 39721 UNITS CapsuleIndications: Vitamin D deficiency 1capsule every other week 8 Cap 6 09/27/2016 Active Blood Glucose Monitoring Suppl (MobileSpacesUCH VERIO) W/DEVICE KITIndications:Type 2 diabetes mellitus with hemoglobin A1c goal of less than 7.0% (HCC) Use as directed. Use daily to check blood sugars DX:E11.9 1 Kit 0 01/17/2017 Active Functional NeuromodulationTOUCH ULTRASOFT LANCETS MISCIndications:Typ e 2 diabetes mellitus [...] bedtime 30 Each 3 10/11/2017 Active nystatin 954469 UNIT/GM creamIndications:Ca ndidal vulvovaginitis Apply topically to affected area 2 times a day. To affacted area for two weeks. 15 g 2 10/12/2017 Active Blood Glucose Monitoring Suppl (MobileSpacesUCH VERIO) w/Device KITIndications:Type 2 diabetes mellitus with [...] Take 500 mg by mouth daily. Active Dulaglutide (TRULICITY) 0.75 MG/0.5ML SOPN Inject 1 syringeful once weekly 4 Pre-filled Pen Syringe Dosing Unit 5 01/01/2018 03/12/20 18 Discontinued insulin glargine (LANTUS SOLOSTAR) 100 UNIT/ML SOPNIndications:Typ e 2 diabetes mellitus with hemoglobin A1c goal of less than 7.0% ([facility]) Inject 24 units at bed time 5 Pre-filled Pen Syringe Dosing Unit 3 01/29/2018 03/12/20 18 Discontinued BD PEN NEEDLE MINI U/F 31G X 5 MM Use with Basaglar at bedtime. 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 7 02/13/2018 Atypical chest pain 08/19/2016 01/17/2017 Depression with anxiety 08/19/2016 02/14/20 18 Hepatic cirrhosis ([facility]) 08/19/2016 03/28/20 17 Polyuria 08/09/2016 01/17/2017 Urinary frequency 08/09/2016 01/17/2017 Generalized OA 06/14/2016 03/28/2017 Body mass index (BMI) of 45.0-49.9 in adult ([facility] ) 12/09/2015 01/17/2017 Overview: bmi= 48.04 12/09/15 Need for shingles vaccine 12/09/20152015 Bilateral shoulder pain 08/25/2015 06/07/20 16 Bilateral shoulder pain 07/16/2015 06/07/20 16 Cerebral palsy ([facility]) 04/23/2015 03/28/2017 Candidal vulvovaginitis 02/12/2015 06/07/20 16 Obesity, morbid (more than 1 00 lbs over ideal weight or BMI > 40) ([facility]) 02/09/2015 03/28/2017 THAD (obstructive sleep apnea) [...] BMI > 40) ([facility]) 10/28/2013 01/17/2017 Overview: bmi= 53.93 10/28/13 [...] BMI > 40) ([facility]) 05/25/2012 01/17/2017 Overview: BMI= 55.27 05/25/12 [...] pain 01/24/2012 01/17/2017 Genetic Sleep Disorder Research Other*[id number] 05/13/2011 04/07/2016 Obstructive sleep apnea 01/18/2011 12/27/19 [...] BMI > 40) ([facility]) 12/08/2009 07/02/2014 Overview: Per Obesity Taxonomy [...] Telephone Encounter - Dominga Blackwell OSA - 03/09/2018 1:04 PM EDT Patient is scheduled and aware of appointment on 03/15 * Telephone Encounter - Brianne Triana RN - 03/09/2018 12:27 PM EDT Orders are in, please assist with scheduling. * Telephone Encounter - Caron Escobar RN - 03/09/2018 11:24 AM EDT ----- Message from ZAK Bolton sent at 03/09/2018 9:42 AM EDT ----- Pls contact pt to set up Hep A and B immunizations ZAK Schreiber in this encounter Plan of Treatment Upcoming Encounters Date Type Specialty Care Team Description 03/15/2018 Imaging Radiology 03/15/2018 Nurse Only Gastroenterology Dom, Nurse Anthony Ritchie [address] [place] [address] [phone] 03/20/2018 Office Visit Dermatology Rachel Hill MD [address] [place] [address] [phone] 03/28/2018 Office Visit Family Medicine Rajwinder Carter DO [address] [place] [address] [phone] 03/30/2018 Office Visit Gastroenterology Angela Gonzalez, DO [address] [place] [address] [phone] 04/25/2018 Office Visit Gastroenterology Angela Gonzalez, DO [address] [place] [address] [phone] 06/07/2018 Office Visit Gastroenterology Lyssa Stout CRNP [address] [place] [address] [phone] 06/11/2018 [address] [id number] 08/07/2018 Office Visit Sleep Disorders Lanette Fields CRNP [address] [place] [address] [phone] [place] Nurse [facility] [address] [place] [address] [phone] 12/19/2018 Office Visit Gynecology Obstetrics Irene Mujica CRNP [address] [place] [address] Health Maintenance Due Date Last Done [...]
--- OUTSIDE RECORDS SUMMARY | 2023-05-10 23:25 | External Medical Summary | Summary of Care ---
Author Name Unknown Organization [place] [address] Phone Care Team Providers Care Offset Proof Press Operator Name Role Phone ArabellaRajwinder thacker Belen MORENO Primary Care Provider [phone] Encounter Details Date Type Department Care Team Description 03/09/2018 Orders Only Gastroenterology, [facility] 132 [facility] [place] [address] Lyssa Stout CRNP 132 [facility] [place] [address] [phone] Need for vaccination for viral hepatitis* Allergies Active Allergy Reactions Severity Noted Date [...] Inhaler 1 06/29/2016 Active Vitamin D, Ergocalciferol, 04992 UNITS CapsuleIndications:Vi tamin D deficiency 1capsule every other week 8 Cap 6 09/27/2016 Active Blood Glucose Monitoring Suppl (AltobeamUCH VERIO) W/DEVICE KITIndications:Type 2 diabetes mellitus with hemoglobin A1c goal of less than 7.0% (HCC) Use as directed. Use daily to check blood sugars DX:E11.9 1 Kit 0 01/17/2017 Active CounselyticsTOUCH ULTRASOFT LANCETS MISCIndications:Type 2 diabetes mellitus with [...] bedtime 30 Each 3 10/11/2017 Active nystatin 008319 UNIT/GM creamIndications:Cand idal vulvovaginitis Apply topically to affected area 2 times a day. To affacted area for two weeks. 15 g 2 10/12/2017 Active Blood Glucose Monitoring Suppl (Brndstr VERIO) w/Device KITIndications:Type 2 diabetes mellitus with hemoglobin A1c goal of less than 7.0% (HCC) Use up to 4 times a day E11.9 1 Kit 0 10/17/2017 Active gabapentin (NEURONTIN) 300 MG Capsule One pill in am, one midday, two in pm, as directed, increase up to 2 capsules 3 times daily 180 Cap 5 11/16/2017 Active Glucose Blood (CounselyticsTOUCH VERIO) STRP Use up to four times a day as directed.DX:E11. 9 400 Strip 3 12/04/2017 Active Dulaglutide (TRULICITY) 0.75 MG/0.5ML SOPN Inject 1 syringeful once weekly 4 Pre-filled Pen Syringe Dosing Unit 5 01/01/2018 Active MetFORMIN (GLUCOPHAGE) 1000 MG TabletIndications:Typ e [...] at bedtime. 30 Tab 5 01/10/2018 Active insulin glargine (LANTUS SOLOSTAR) 100 UNIT/ML SOPNIndications:Type 2 diabetes mellitus with hemoglobin A1c goal of less than 7.0% ([facility]) Inject 24 units at bed time 5 Pre-filled Pen Syringe Dosing Unit 3 01/29/2018 Active BD PEN NEEDLE MINI U/F 31G X 5 MM Use with Basaglar at bedtime. 30 Each 11 02/08/2018 Active Hydrocodone-Acetamino phen (NORCO) 10-325 MG per tabletIndications:Spi nal stenosis of lumbar region without neurogenic claudication,DDD (degenerative disc disease), lumbar,MEDICATION USE AGREEMENT Take 1 Tab by mouth 2 times a day as needed for Pain. 60 Tab 0 02/13/2018 Active potassium chloride ER 10 MEQ TBCRIndications:Hypok [...] Take 500 mg by mouth daily. Active as of this encounter Active Problems Problem Noted Date THDA on CPAP 12/26/2017 Cirrhosis of liver (HCC) 11/20/2017 History of Clostridium difficile colitis 08/29/2017 Chronic pain syndrome 01/17/2017 MEDICATION USE AGREEMENT 01/17/2017 Overview: 01/17/17 Acquired hypothyroidism 12/12/2016 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 1 10/09/2015 Restrictive lung disease 12/10/2014 Type 2 diabetes mellitus with hemoglobin A1c goal of less than 7.0% ([facility]) 09/26/2013 Overview: ICD-10 update of inactive term [...] to 59.9 in adult ( [facility]) 06/12/2017 12/19/2017 Overview: Per Obesity protocol #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 7 02/13/2018 Atypical chest pain 08/19/2016 01/17/2017 Depression with anxiety 08/19/2016 02/14/20 18 Hepatic cirrhosis ([facility]) 08/19/2016 03/28/20 17 Polyuria 08/09/2016 01/17/2017 Urinary frequency 08/09/2016 01/17/2017 Generalized OA 06/14/2016 03/28/2017 Body mass index (BMI) of 45.0-49.9 in adult ([facility] ) 12/09/2015 01/17/2017 Overview: bmi= 48.04 12/09/15 Need for shingles vaccine 12/09/20152015 Bilateral shoulder pain 08/25/2015 06/07/20 16 Bilateral shoulder pain 07/16/2015 06/07/20 16 Cerebral palsy ([facility]) 04/23/2015 03/28/2017 Candidal vulvovaginitis 02/12/2015 06/07/20 16 Obesity, morbid (more than 1 00 lbs over ideal weight or BMI > 40) ([facility]) 02/09/2015 03/28/2017 THAD (obstructive sleep apnea) 02/09/2015 [...] 40) ([facility]) 10/28/2013 01/17/2017 Overview: bmi= 53.93 10/28/13 Sleep [...] 40) ([facility]) 05/25/2012 01/17/2017 Overview: BMI= 55.27 05/25/12 Impacted [...] pain 01/24/2012 01/17/2017 Genetic Sleep Disorder Research Other*[id number] 05/13/2011 04/07/2016 Obstructive sleep apnea 01/18/2011 12/27/19 [...] 40) ([facility]) 12/08/2009 07/02/2014 Overview: Per Obesity Taxonomy ICD-10 [...] Encounters Date Type Specialty Care Team Description 03/12/2018 Pharmacy Pharmacy [facility] [address] [place] [address] [phone] 03/15/2018 Imaging Radiology 03/20/2018 Office Visit Dermatology Rachel Hill MD [address] [place] [address] [phone] 03/28/2018 Office Visit Family Medicine Rajwinder Carter, DO [address] [facility] [place] [address] [phone] 03/30/2018 Office Visit Gastroenterology Angela Gonzalez, DO [address] [place] [address] [phone] 04/25/2018 Office Visit Gastroenterology Anglea Gonzalez, DO [address] [place] [address] 06/07/2018 Office Visit Gastroenterology Lyssa Stout CRNP [address] [place] [address] [phone] 08/07/2018 Office Visit Sleep Disorders Lanette Fields CRNP [address] [place] [address] [phone] Nurse [facility] [address] [place] [address] [phone] 12/19/2018 Office Visit Gynecology Obstetrics Irene Mujica CRNP [address] [place] [address] [phone] Health Maintenance Due Date Last Done Comments DIABETES-EYE EXAM 1973 BREAST CANCER SCREENING DISCUSSION YEARLY AGES 40-75 01/18/2018 01/18/2017, 01/17/2017 (Discussed), 12/22/2015, Additional history exists DIABETES-HGBA1C EVERY 6 MONTHS [...] the topic Influenza Vaccine (FLU shot) Completed 07/10/2017, 06/07/2016, 05/22/2015, Additional history exists as of this encounter Implants Not on fileas of this encounter Visit Diagnoses Diagnosis Need for vaccination for vir al hepatitis - Primary Need for prophylactic vaccination and inoculation against viral hepatitis in this encounter
--- OUTSIDE RECORDS SUMMARY | 2023-05-10 23:25 | External Medical Summary | Summary of Care ---
Author Name Unknown Organization [place] [address] Phone Care Team Providers Care Manufacturing Quality Engineer Name Role Phone Rajwinder Carter DO Primary Care Provider [phone] Reason for Visit * Reason Comments ADVICE ORDER REQUEST Encounter Details Date Type Department Care Team Description 02/27/2018 Telephone [place] [address] [place] [address] Rajwinder Carter DO [address] [place] [address] [phone] ADVICE; ORDER REQUEST Allergies Active Allergy Reactions Severity Noted Date [...] Inhaler 1 06/29/2016 Active Vitamin D, Ergocalciferol, 09652 UNITS CapsuleIndications:Vi tamin D deficiency 1capsule every other week 8 Cap 6 09/27/2016 Active Blood Glucose Monitoring Suppl (Zattikka VERIO) W/DEVICE KITIndications:Type 2 diabetes mellitus with hemoglobin A1c goal of less than 7.0% (HCC) Use as directed. Use daily to check blood sugars DX:E11.9 1 Kit 0 01/17/2017 Active Cellomics TechnologyTOUCH ULTRASOFT LANCETS MISCIndications:Type 2 diabetes mellitus with [...] bedtime 30 Each 3 10/11/2017 Active nystatin 249871 UNIT/GM creamIndications:Cand idal vulvovaginitis Apply topically to affected area 2 times a day. To affacted area for two weeks. 15 g 2 10/12/2017 Active Blood Glucose Monitoring Suppl (Zattikka VERIO) w/Device KITIndications:Type 2 diabetes mellitus with hemoglobin A1c goal of less than 7.0% (HCC) Use up to 4 times a day E11.9 1 Kit 0 10/17/2017 Active gabapentin (NEURONTIN) 300 MG Capsule One pill in am, one midday, two in pm, as directed, increase up to 2 capsules 3 times daily 180 Cap 5 11/16/2017 Active Glucose Blood (Cellomics TechnologyTOUCH VERIO) STRP Use up to four times [...] than 7.0% ([facility]) Inject 24 units at bed [...] equal 175mcg 30 Tab 11 02/23/2018 Active as of this encounter Active Problems [...] less than 7.0% ([facility]) 09/26/2013 Overview: ICD-10 update of [...] 50.0 to 59.9 in adult ( [facility]) 06/12/2017 12/19/2017 Overview: Per Obesity protocol #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 7 02/13/2018 Atypical chest pain 08/19/2016 01/17/2017 Depression with anxiety 08/19/2016 02/14/20 18 Hepatic cirrhosis ([facility]) 08/19/2016 03/28/20 17 Polyuria 08/09/2016 01/17/2017 Urinary frequency 08/09/2016 01/17/2017 Generalized OA 06/14/2016 03/28/2017 Body mass index (BMI) of 45.0-49.9 in adult ([facility] ) 12/09/2015 01/17/2017 Overview: bmi= 48.04 12/09/15 Need for shingles vaccine 12/09/20152015 Bilateral shoulder pain 08/25/2015 06/07/20 16 Bilateral shoulder pain 07/16/2015 06/07/20 16 Cerebral palsy ([facility]) 04/23/2015 03/28/2017 Candidal vulvovaginitis 02/12/2015 06/07/20 16 Obesity, morbid (more than 1 00 lbs over ideal weight or BMI > 40) ([facility]) 02/09/2015 03/28/2017 THAD (obstructive sleep [...] BMI > 40) ([facility]) 10/28/2013 01/17/2017 Overview: bmi= 53.93 [...] BMI > 40) ([facility]) 05/25/2012 01/17/2017 Overview: BMI= 55.27 [...] pain 01/24/2012 01/17/2017 Genetic Sleep Disorder Research Other*[id number] 05/13/2011 04/07/2016 Obstructive sleep apnea 01/18/2011 12/27/19 [...] Miscellaneous Notes * Telephone Encounter - Deepali Smith, THAD - 03/01/2018 10:43 AM EDT [employer] calling because the pt had called them stating that PCP office was waiting to fill out a form for pt to get lift chair. However, they have received all needed information from office and at this point in time, nothing else needs done. * Telephone Encounter - Susan Rosales RN - 03/01/2018 9:49 AM EDT Left message with Shaina unable to get in touch kevin automatic i threading machine feeder at that number- asked to have automatic i threading machine feeder call triage and have them get me on the phone * Telephone Encounter - Susan Rosales RN - 02/28/2018 2:27 PM EDT Called Shaina she said it is a lift chair she needs told her that most insurances will not pay for alift chair and I would call her automatic i threading machine feeder Dulce tucker gave me her number [phone] phone just beeps not shore if this is also a fax * Telephone Encounter - Rajwinder Carter DO - 02/28/2018 2:10 PM EDT Please let automatic i threading machine feeder know: 1. Electric wheelchairs are very difficult to get covered. She may need another evaluation at [facility] but we can send an order if they would like. Where do they want it faxed? * Telephone Encounter - Susan Rosales RN - 02/28/2018 10:08 AM EDT Does patient need eval at [facility] for electric wheel chair * Telephone Encounter - Radha Elias, THAD - 02/28/2018 9:19 AM EDT An order was requested for this patient. Name of Requestor: Patient Order Requested: electronic chair Diagnosis/Reason for Request: Does the order need to be faxed somewhere? If so, where?: Yes,automatic i threading machine feeder Dulce Angulo Fax Number, if applicable: [phone] Call Back Number: [phone] * Telephone Encounter - Carlee Hadley, THAD - 02/27/2018 11:50 AM EDT Reason for patient's call: Pt calling in regarding an an electric chair, stating she needs information for her director social welfare. Attempted to help the pt, but had a hard time understanding exactly what she needed. Called the phone nurse to see if someone could help figure out what the pt needed. Pt disconnected the call before I was able to transfer. in this encounter Plan of Treatment Upcoming Encounters Date Type Specialty Care Team Description 03/01/2018 Office Visit [facility]enterology [facility] [address] [phone] 03/12/2018 Pharmacy Pharmacy [facility] [address], [place] [id number] 03/20/2018 Office Visit Dermatology Rachel Hill MD [address] [place] [address] [phone] 03/28/2018 Office Visit Family Medicine Rajwinder Carter, DO [address], [place] [address] 03/30/2018 Office Visit Gastroenterology Angela Gonzalez, DO [address] [place] [address] [phone] 04/25/2018 Office Visit Gastroenterology Angela Gonzalez, DO [address] [place] [address] 08/07/2018 Office Visit [facility] Disorders [facility] [place] [address] [phone] [place] Nurse Sleep Disorders 132 [facility] [place] [address] [phone] 12/19/2018 Office Visit Gynecology Obstetrics Irene Mujica CRNP [address] [place] [address] [phone] Health Maintenance Due Date Last Done Comments [...]
--- OUTSIDE RECORDS SUMMARY | 2023-05-10 23:25 | External Medical Summary ---
Author Name Unknown Address 132 [facility] [place] [address] Phone Organization K0G:[facility] [address] [facility] [place] [address] Laboratory Report Ordering Provider Test Date Status NASEEMODESSA CRESPO 03/08/2018 11:06:00 Final Observation Date Value Abnormality Reference Status PT 03/08/2018 12:15 13.2 11.5-14.6 Chago siddiqui INR 03/08/2018 12:15 1.03 0.87-1.17 Chago siddiqui Performing Location [facility] Wide [employer] [address] [facility] [place] [address]
--- OUTSIDE RECORDS SUMMARY | 2023-05-10 23:25 | External Medical Summary | Summary of Care ---
Author Name Unknown Organization [place] [address] Phone Care Team Providers Care Vehicle Service Agent Name Role Phone Rajwinder Lara DO Primary Care Provider [phone] Reason for Visit * Reason Comments eRx-Medication Refill Encounter Details Date Type Department Care Team Description 03/11/2018 Refill [place] [address] [place] [address] Rajwinder Lara DO [address] [place] [address] [phone] Spinal stenosis of lumbar region without neurogenic [...] Inhaler 1 06/29/2016 Active Vitamin D, Ergocalciferol, 50272 UNITS CapsuleIndications: Vitamin D deficiency 1capsule every other week 8 Cap 6 09/27/2016 Active Blood Glucose Monitoring Suppl (MedrioTOUCH VERIO) W/DEVICE KITIndications:Type 2 diabetes mellitus with hemoglobin A1c goal of less than 7.0% (HCC) Use as directed. Use daily to check blood sugars DX:E11.9 1 Kit 0 01/17/2017 Active MedrioTOUCH ULTRASOFT LANCETS MISCIndications:Typ e 2 diabetes mellitus [...] bedtime 30 Each 3 10/11/2017 Active nystatin 870390 UNIT/GM creamIndications:Ca ndidal vulvovaginitis Apply topically to [...] 180 Cap 5 11/16/2017 Active Glucose Blood (MedrioTOUCH VERIO) STRP Use up to four times a day as directed.DX:E11 .9 400 Strip 3 12/04/2017 Active Dulaglutide (TRULICITY) 0.75 MG/0.5ML SOPN Inject 1 syringeful once weekly 4 Pre-filled Pen Syringe Dosing Unit 5 01/01/2018 Active MetFORMIN (GLUCOPHAGE) 1000 MG TabletIndications:T ype [...] at bedtime. 30 Each 11 02/08/2018 Active potassium chloride ER 10 MEQ TBCRIndications:Hyp [...] for pain 60 Tab 0 03/12/2018 Active Hydrocodone-Acetami nophen (NORCO) 10-325 MG per tabletIndications:S [...] pain 01/24/2012 01/17/2017 Genetic Sleep Disorder Research Other*[id number] 05/13/2011 04/07/2016 Obstructive sleep apnea 01/18/2011 12/27/19 [...] Telephone Encounter - Rajwinder Lara DO - 03/12/2018 9:45 AM EDT Signed Prescriptions: Disp Refills Hydrocodone-Acetaminophen 10-325 MG per ta*60 Tab 0 Sig: take 1 tablet by mouth twice a day if needed for pain Authorizing Provider: RAJWINDER LARA * Telephone Encounter - Rajwinder Lara, - 03/12/2018 9:45 AM EDT Rx sent. * Telephone Encounter - Jovana Lambert RN - 03/12/2018 8:28 AM EDT Pending Prescriptions: Disp Refills Hydrocodone-Acetaminophen 10-325 MG per t*60 Tab 0 Sig: take 1 tablet by mouth twice a day if needed for pain * Telephone Encounter - Jovana Lambert RN - 03/12/2018 8:27 AM EDT I have reviewed the patients controlled substance dispensing history in the Prescription Drug Monitoring Program in compliance with the [facility] regulations before prescribing a controlled substance. Last Tox Screen Results: No results found. However, due to the size of the patient record, not all encounters were searched.Please check Results Review for a complete set of results. Last filled 02/13/18 * Telephone Encounter - Fausto Jovana, RN - 03/12/2018 8:27 AM EDT Formatting of this note may be different from the original. FAX REFILL PROCESS: Last Office Visit: 02/13/2018 Next Office Visit: 03/28/2018 Scheduled Provider(s): Rajwinder Lara DO PCP: Rajwinder Lara DO Patient Active Problem [...] of less than 7.0% ([facility]) E11.9 Vitamin D deficiency E55.9 Restrictive lung disease J98.4 Dyslipidemia, goal LDL below 70 E78.5 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 R39.81 Acquired hypothyroidism E03.9 Chronic pain syndrome G89.4 MEDICATION USE AGREEMENT [id number] History of Clostridium difficile colitis Z86.19 Cirrhosis of liver (HCC) K74.60 THAD on CPAP G47.33, Z99.89 LABS: CREATININE(mg/dL) [facility] Dt/Tm Resulted Value Status 02/13/18 3:27P 02/13/18 0.7 FINAL POTASSIUM(mmol/L) [facility] Dt/Tm Resulted Value Status 02/13/18 3:27P 02/13/18 4.2 FINAL TSH(uIU/mL) [facility] Dt/Tm Resulted Value Status 02/13/18 3:27P 02/13/18 0.01* FINAL LDL (DIRECT MEASURE)(mg/dL) [facility] Dt/Tm Resulted Value Status 10/11/17 1:18P 10/11/17 57 FINAL 02/01/17 11:19A 02/01/17 101 FINAL ALT(U/L) [facility] Dt/Tm Resulted Value Status 02/13/18 3:27P 02/13/18 26 FINAL Hemoglobin AIC Results: HEMOGLOBIN, A1C(%) [facility] Dt/Tm Resulted Value Status 02/13/18 3:27P 02/13/18 7.1* FINAL 10/11/17 1:18P 10/11/17 6.9* FINAL 03/28/17 3:31P 03/28/17 6.6* FINAL * Telephone Encounter - Susan Rosales RN - 03/12/2018 7:39 AM EDT Pending Prescriptions: Disp RefillsHydrocodone-Acetaminophen 10-325 MG per t*60 Tab 0Sig: take 1 tablet by mouth twice a day if needed forpain in this encounter Plan of Treatment Upcoming Encounters Date Type Specialty Care Team Description 03/12/2018 Pharmacy Pharmacy [place], [facility] [address] [facility] [place] [address] [phone] 03/15/2018 Imaging Radiology 03/15/2018 Nurse Only Gastroenterology Nurse Anthony Fernandes [address] [place] [address] [phone] 03/20/2018 Office Visit Dermatology Rachel Hill MD [address] [place] [address], [place] [address] [phone] 03/28/2018 Office Visit Family Medicine Rajwinder Lara DO [address] [facility] [place] [address] [phone] 03/30/2018 Office Visit Gastroenterology Angela Gonzalez, DO [address] [place] [address] [phone] 04/25/2018 Office Visit Gastroenterology Angela Gonzalez, DO [address] [place] [address] [phone] 06/07/2018 Office Visit Gastroenterology Lyssa Stout CRNP [address] [place] [address] [phone] 08/07/2018 Office Visit Sleep Disorders Lanette Fields CRNP [address] [place] [address] [phone] Nurse [facility] [address] [place] [address] [address] [phone] 12/19/2018 Office Visit Gynecology Obstetrics Irene Mujica CRNP [address] [place] [address] [phone] Health Maintenance Due Date Last Done Comments [...]
--- OUTSIDE RECORDS SUMMARY | 2023-05-10 23:25 | External Medical Summary ---
Author Name Unknown Address [address] [id number] Phone Organization K01:[facility] [address] [id number] Laboratory Report Ordering Provider Test Date Status NASEEMODESSA CRESPO 03/08/2018 11:06:00 Final Observation Date Value Abnormality Reference Status Hepatitis B virus surface Ab [Units/volume] in Serum or Plasma by Immunoassay 03/08/2018 17:43 <3.5 Final Hepatitis B virus surface Ab [Presence] in Serum by Immunoassay 03/08/2018 17:43 NEGATIVE Final INTERPRETATION 03/08/2018 17:43 NOT immune to Hepatitis B Virus Final COMMENT 03/08/2018 11:06 Final Performing Location [facility] [address] [facility] [address]
--- OUTSIDE RECORDS SUMMARY | 2023-05-10 23:25 | External Medical Summary | Summary of Care ---
Author Name Unknown Organization [place] [address] Phone Care Team Providers Care Consulting Sales Executive Name Role Phone Rajwinder Carter Primary Care Provider Encounter Details Date Type Department Care Team Description 03/05/2018 Scan Encounter Unspecified Department <No scans attached> [...] Inhaler 1 06/29/2016 Active Vitamin D, Ergocalciferol, 03742 UNITS CapsuleIndications:Vi tamin D deficiency 1capsule every other week 8 Cap 6 09/27/2016 Active Blood Glucose Monitoring Suppl (InteRNA TechnologiesTOUCH VERIO) W/DEVICE KITIndications:Type 2 diabetes mellitus with [...] 02/14/2017 Active furosemide (LASIX) 20 MG TabletIndications:Erickson ren,Stasis [...] bedtime 30 Each 3 10/11/2017 Active nystatin 449093 UNIT/GM creamIndications:Cand idal vulvovaginitis Apply topically to affected area 2 times a day. To affacted area for two weeks. 15 g 2 10/12/2017 Active Blood Glucose Monitoring Suppl ([employer]) w/Device KITIndications:Type 2 diabetes mellitus with hemoglobin A1c goal of less than 7.0% (HCC) Use up to 4 times a day E11.9 1 Kit 0 10/17/2017 Active gabapentin (NEURONTIN) 300 MG Capsule One pill in am, one midday, two in pm, as directed, increase up to 2 capsules 3 times daily 180 Cap 5 11/16/2017 Active Glucose Blood (InteRNA TechnologiesTOUCH VERIO) STRP Use up to four [...] less than 7.0% ([facility]) 09/26/2013 Overview: ICD-10 update [...] of 50.0 to 59.9 in adult ( [facility]) 06/12/2017 12/19/2017 Overview: Per Obesity protocol #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 7 02/13/2018 Atypical chest pain 08/19/2016 01/17/2017 Depression with anxiety 08/19/2016 02/14/20 18 Hepatic cirrhosis ([facility]) 08/19/2016 03/28/20 17 Polyuria 08/09/2016 01/17/2017 Urinary frequency 08/09/2016 01/17/2017 Generalized OA 06/14/2016 03/28/2017 Body mass index (BMI) of 45.0-49.9 in adult ([facility] ) 12/09/2015 01/17/2017 Overview: bmi= 48.04 12/09/15 Need for shingles vaccine 12/09/20152015 Bilateral shoulder pain 08/25/2015 06/07/20 16 Bilateral shoulder pain 07/16/2015 06/07/20 16 Cerebral palsy ([facility]) 04/23/2015 03/28/2017 Candidal vulvovaginitis 02/12/2015 06/07/20 16 Obesity, morbid (more than 1 00 lbs over ideal weight or BMI > 40) ([facility]) 02/09/2015 03/28/2017 THAD (obstructive sleep [...] BMI > 40) ([facility]) 10/28/2013 01/17/2017 Overview: bmi= [...] BMI > 40) ([facility]) 05/25/2012 01/17/2017 Overview: BMI= [...] pain 01/24/2012 01/17/2017 Genetic Sleep Disorder Research Other*[id number] 05/13/2011 04/07/2016 Obstructive sleep apnea 01/18/2011 12/27/19 [...] Encounters Date Type Specialty Care Team Description 03/08/2018 Office Visit Gastroenterology Lyssa Stout CRNP [address] [place] [address] [address] [phone] 03/12/2018 Pharmacy Pharmacy [facility] [address] [facility] [place] [address] [phone] 03/20/2018 Office Visit Dermatology Rachel Hill MD [address] [place] [address], [place] [address] [phone] 03/28/2018 Office Visit Family Medicine [facility]inder Carter [facility] [address] [facility] [address] [phone] 03/30/2018 Office Visit Gastroenterology Angela Gonzalez, DO [address] [place], [place] [address] 04/25/2018 Office Visit Gastroenterology Angela Gonzalez, DO [address] [place] [address] [phone] 08/07/2018 Office Visit Sleep Disorders Lanette Fields CRNP [address] [place] [address] [address] [phone] [facility] [address] [place] [address] [phone] 12/19/2018 Office Visit Gynecology Obstetrics Irene Mujica CRNP [address] [place] [address] [address] Health Maintenance Due Date Last Done [...]
--- OUTSIDE RECORDS SUMMARY | 2023-05-10 23:25 | External Medical Summary | Summary of Care ---
Author Name Unknown Organization [place] [address] Phone Care Team Providers Care Opticianry Teacher Name Role Phone ArabellaRajwinder thacker Belen MORENO Primary Care Provider [phone] Reason for Visit * Reason Comments FOLLOW UP Encounter Details Date Type Department Care Team Description 02/23/2018 Office Visit Sleep Disorders, [facility] [address] [facility] [place] [address] Lanette Fields CRNP [address] [facility] [place] [address] [phone] THAD treated with BiPAP*;Nocturnal hypoxemia Allergies Active Allergy Reactions Severity Noted [...] Inhaler 1 06/29/2016 Active Vitamin D, Ergocalciferol, 66239 UNITS CapsuleIndications: Vitamin D deficiency 1capsule every other week 8 Cap 6 09/27/2016 Active Blood Glucose Monitoring Suppl (Life360TOUCH VERIO) W/DEVICE KITIndications:Type 2 diabetes mellitus with hemoglobin A1c goal of less than 7.0% (HCC) Use as directed. Use daily to check blood sugars DX:E11.9 1 Kit 0 01/17/2017 Active Life360TOUCH ULTRASOFT LANCETS MISCIndications:Typ e 2 diabetes mellitus [...] bedtime 30 Each 3 10/11/2017 Active nystatin 359284 UNIT/GM creamIndications:Ca ndidal vulvovaginitis Apply topically to affected area 2 times a day. To affacted area for two weeks. 15 g 2 10/12/2017 Active Blood Glucose Monitoring Suppl (DomainexIO) w/Device KITIndications:Type 2 diabetes mellitus with hemoglobin A1c goal of less than 7.0% (HCC) Use up to 4 times a day E11.9 1 Kit 0 10/17/2017 Active gabapentin (NEURONTIN) 300 MG Capsule One pill in am, one midday, two in pm, as directed, increase up to 2 capsules 3 times daily 180 Cap 5 11/16/2017 Active Glucose Blood (Life360TOUCH VERIO) STRP Use up to four times [...] [facility]) Inject 24 units at bed time 5 Pre-filled Pen Syringe Dosing Unit 3 01/29/2018 Active BD PEN NEEDLE MINI U/F 31G X 5 MM Use with Basaglar at bedtime. 30 Each 11 02/08/2018 Active Hydrocodone-Acetami nophen (NORCO) 10-325 MG per tabletIndications:S jennifer stenosis of lumbar region without neurogenic claudication,DDD (degenerative disc disease), lumbar,MEDICATION USE AGREEMENT Take 1 Tab by mouth 2 times a day as needed for Pain. 60 Tab 0 02/13/2018 Active potassium chloride ER 10 MEQ TBCRIndications:Hyp okalemia With food. Pt reports only taking once dailly. 60 Tab 5 02/17/2018 Active escitalopram (LEXAPRO) 10 MG Tablet Take 1.5 Tabs by mouth daily. 45 Tab 5 02/17/2018 Active cyclobenzaprine (FLEXERIL) 10 MG Tablet Take 1 Tab by mouth at bedtime. 30 Tab 0 02/15/2018 Active levothyroxine (LEVOXYL) 88 MCG Tablet Take 1 Tab by mouth daily. (at least 30 min prior to breakfast or other meds) 30 Tab 5 10/11/2017 02/24/20 18 Discontinued levothyroxine (LEVOXYL) 100 MCG Tablet Take 1 Tab by mouth daily. (at least 30 min prior to breakfast or other meds) 30 Tab 5 01/10/2018 02/24/20 18 Discontinued as of this encounter Active [...] anxiety 08/19/2016 02/14/20 18 Hepatic cirrhosis ([facility]) 08/19/2016 03/28/20 17 Polyuria 08/09/2016 01/17/2017 [...] pain 01/24/2012 01/17/2017 Genetic Sleep Disorder Research Other*[id number] 05/13/2011 04/07/2016 Obstructive sleep apnea 01/18/2011 12/27/19 [...] ([facility]) 12/08/2009 07/02/2014 Overview: Per Obesity Taxonomy [...] Vital Sign Reading Time Taken Blood Pressure 128/72 02/23/2018 11:05 AM EDT Pulse 72 02/23/2018 11:05 AM EDT Temperature - - Respiratory Rate - - Oxygen Saturation - - Inhaled Oxygen Concentration - - Weight 118.8 kg (262 lb) 02/23/2018 11: 05 AM EDT Height - - Body Mass Index 52.92 02/23/2018 11:05 AM EDT in this encounter Progress Notes * Lanette Fields CRNP - 02/23/2018 11:48 AM EDT Formatting of this note may be different from the original. SLEEP MEDICINE [place]: Shaina Bustos [facility] [place] #: [id number] Date: 02/23/2018 HISTORY: Routine f/u for THAD on CPAP/O2 - 2007 PSG: AHI 33 - 08/27/13 Titration: BIPAP 18/10, 2 LPM DME company: [facility] Oxygen: 2 LPM Settings: BIPAP 18/10 Mask: FFM Humidification: 3 Cleaning: no BIPAP used 7 nights/week. Sleep schedule is 10-8a. Mask is in place throughout sleep period. SLeepssound. Occasionally will note high leak. Rare napping. Denies symptoms suggestive of RLS. Some nocturnal leg cramping. EPWORTH SLEEPINESS SCALE: 03/31 Modified FOSQ 10: 32 COMPLIANCE DATA 12/19/17-02/11/18: Percent of Days with Device Usage - all but one day Avg usage days used - 7 hrs 16 mins Percent of days with usage >=4 hours - all but one day Avg time in large leak per day - 4 hrs 10 mins AHI 3.1 ROS: Constitutional: no fever, chills, sweats, or unexplained weight loss ENT: no headaches, sinus, or throat problems Cardiovascular: no chest pain, palpitations, or lower extremity edema. Pulmonary: no dyspnea, +cough, +wheezing Hospitalized with high blood sugar, bladder infections. Denies change in PSH or family history in the interim of care. Patient Active Problem List Diagnosis Code Spinal [...] Chronic pain syndrome G89.4 MEDICATION USE AGREEMENT [id number] History of Clostridium difficile colitis Z86.19 Cirrhosis of liver (HCC) K74.60 THAD on CPAP G47.33, Z99.89 Outpatient Prescriptions Marked as Taking for the 02/23/18 encounter (Office Visit) with ZAK Rios Medication Sig albuterol (PROVENTIL HFA) 108 (90 BASE) MCG/ACT inhaler Inhale 2 Puffs by mouth 4 times a day. albuterol-ipratropium (DUONEB) 2.5-0.5 MG/3ML nebulizer solution Use 1 vial in nebulizer ASPIRIN 81 MG PO TABS one tab by mouth daily atenolol (TENORMIN) 25 MG Tablet Take 1 Tab by mouth at bedtime. atorvaSTATin (LIPITOR) 40 MG Tablet Take 1 Tab by mouth at bedtime. Azelastine HCl (ASTELIN) 0.1 % nasal spray Administer 2 Sprays into each nostril 2 times a day. BD PEN NEEDLE MINI U/F 31G X 5 MM Use with Basaglar at bedtime. BETAMETHASONE VALERATE 0.1 % EX CREA apply to affected area twice daily, as needed Blood Glucose Monitoring Suppl ([employer]) W/DEVICE KIT Use as directed. Use daily to check blood sugars DX:E11.9 Blood Glucose Monitoring Suppl ([employer]) w/Device KIT Use up to 4 times a day E11.9 busPIRone (BUSPAR) 10 MG Tablet CENTRUM SILVER PO TABS 1 tab daily cyclobenzaprine (FLEXERIL) 10 MG Tablet Take 1 Tab by mouth at bedtime. Dulaglutide (TRULICITY) 0.75 MG/0.5ML SOPN Inject 1 syringeful once weekly escitalopram (LEXAPRO) 10 MG Tablet Take 1.5 Tabs by mouth daily. fexofenadine (BERNARDA) 180 MG Tablet One pill by mouth once a day as needed for allergies fluticasone (FLONASE) 50 MCG/ACT nasal spray Administer 2 Sprays into each nostril daily. furosemide (LASIX) 20 MG Tablet One pill by mouth once a day, as needed for edema gabapentin (NEURONTIN) 300 MG Capsule One pill in am, one midday, two in pm, as directed, increase up to 2 capsules 3 times daily Glucosamine-Chondroitin (GLUCOSAMINE CHONDR COMPLEX) 500-400 MG Capsule Take 1 Cap by mouth 3 times a day. Glucose Blood (ONETOUCH VERIO) STRP Use up to four times a day as directed.DX:E11.9 Hydrocodone-Acetaminophen (NORCO) 10-325 MG per tablet Take 1 Tab by mouth 2 times a day as needed for Pain. insulin glargine (LANTUS SOLOSTAR) 100 UNIT/ML SOPN Inject 24 units at bed time Insulin Pen Needle 31G X 6 MM MISC Use with Lantus Solostar at bedtime levothyroxine (LEVOXYL) 100 MCG Tablet Take 1 Tab by mouth daily. (at least 30 min prior to breakfast or other meds) levothyroxine (LEVOXYL) 88 MCG Tablet Take 1 Tab by mouth daily. (at least 30 min prior to breakfast or other meds) MetFORMIN (GLUCOPHAGE) 1000 MG Tablet Take 1 Tab by mouth 2 times a day. With food. NEBULIZER KORTNEY as directed nystatin (NYSTOP) powder Apply topically to affected area 3 times a day. Sprinkle over affectedarea. nystatin 392935 UNIT/GM cream Apply topically to affected area 2 times a day. To affacted area for two weeks. OCEAN NASAL SPRAY 0.65 % NA SOLN Two sprays in each nostril as needed for nasal dryness or congestion omeprazole (PRILOSEC) 20 MG CPDR Take 1 Cap by mouth daily. ONETOUCH ULTRASOFT LANCETS MISC Use as directed 4 times a day as needed (Use daily to check blood sugars DX:E11.9). Use up to four times a day as directed potassium chloride ER 10 MEQ TBCR With food. Pt reports only taking once dailly. traZODone (DESYREL) 50 MG Tablet Take 1 Tab by mouth at bedtime. PHYSICAL EXAM: BP 128/72 | Pulse 72 | Wt 262 lbs (118.842kg) | BMI 52.92 kg/m | BSA 2.22 m Constitutional: Alert, oriented in no acute distress Cardio: Regular rate and rhythm. Chest: Normal respiratory effort at rest, equal breath sounds, clear to ascultation. Abdomen: Abdomen soft, non-tender and obese Neuro: Fluent speech, no focal motor deficits, gait steady. Psych: Appropriate mood and affect. ASSESSMENT/PLAN: Encounter Diagnoses Name Primary? THAD treated with BiPAP Yes Nocturnal hypoxemia Encouraged continued use of CPAP to include all periods of sleep. Recommended routine cleaning and change of supplies as needed. Encouraged to change mask cushionmonthy due to high leak. Obtain results of NPO ordered at last visit. Blood pressure was 128/72 today. JNC 7 lists THAD as a causal risk factor for hypertension. Effective treatment of hypertension decreases cardiovascular risk/injury. Lifestyle modification with diet and exercise changes were encouraged because weight loss often results in improvement of sleep disordered breathing. Avoid driving, operating heavy machinery or engaging in any activity that requires full alertness if feeling sleepy, drowsy or otherwise impaired. Follow-up with Sleep Medicine in 6 months. Lanette Fields MS, [facility] Zach Fletcher in this encounter Nursing Notes * Saloni Elias CMA - 02/23/2018 11:07 AM EDT Insurance [employer] in this encounter Plan of Treatment Upcoming Encounters Date Type Specialty Care Team Description 03/08/2018 Office Visit Gastroenterology Lyssa Stout CRNP [address] [facility] [place] [address] [phone] 03/12/2018 Pharmacy Pharmacy [place], [facility] [address] [place], [place] [address] [id number] 03/20/2018 Office Visit Dermatology Rachel Hill MD [address] [place] [address] [phone] 03/28/2018 Office Visit Family Medicine Rajwinder Carter, DO [address] [place] [address] [phone] 03/30/2018 Office Visit Gastroenterology Angela Gonzalez, DO [address] [facility], [place] [id number] 04/25/2018 Office Visit Gastroenterology Angela Gonzalez, DO [address] [facility], [place] [address] 08/07/2018 Office Visit Sleep Disorders Lanette Fields CRNP [address] [facility] [place] [address] [phone] Nurse [facility] [address] [facility] [place] [address] [phone] 12/19/2018 Office Visit Gynecology Obstetrics Irene Mujica CRNP [address] [facility] [place] [address] [phone] Health Maintenance Due Date Last Done Comments [...] fileas of this encounter Visit Diagnoses Diagnosis THAD treated with BiPAP - Shanta isabel Nocturnal hypoxemia Hypoxemia in this encounter"
--- OUTSIDE RECORDS SUMMARY | 2023-05-10 23:25 | External Medical Summary | Summary of Care ---
Author Name Unknown Organization [place] [address] Phone Care Team Providers Care Family Reunification Specialist Name Role Phone Rajwinder Carter Primary Care Provider Reason for Visit * Reason Comments Follow Up 3 month follow up- n o current symptoms. Encounter Details Date Type Department Care Team Description 03/08/2018 Office Visit Gastroenterology, [facility] [address] [address] Lyssa Stout CRNP [address] [place] [address] [phone] Cirrhosis of liver without ascites, unspecified hepatic [...] Inhaler 1 06/29/2016 Active Vitamin D, Ergocalciferol, 26457 UNITS CapsuleIndications:Vi tamin D deficiency 1capsule every other week 8 Cap 6 09/27/2016 Active Blood Glucose Monitoring Suppl (LightboxTOUCH VERIO) W/DEVICE KITIndications:Type 2 diabetes mellitus with [...] bedtime 30 Each 3 10/11/2017 Active nystatin 241980 UNIT/GM creamIndications:Cand idal vulvovaginitis Apply topically to affected area 2 times a day. To affacted area for two weeks. 15 g 2 10/12/2017 Active Blood Glucose Monitoring Suppl (Net[employer]ive Technology) w/Device KITIndications:Type 2 diabetes mellitus with hemoglobin A1c goal of less than 7.0% (HCC) Use up to 4 times a day E11.9 1 Kit 0 10/17/2017 Active gabapentin (NEURONTIN) 300 MG Capsule One pill in am, one midday, two in pm, as directed, increase up to 2 capsules 3 times daily 180 Cap 5 11/16/2017 Active Glucose Blood (Press4KidsUCH VERVaddio) STRP Use up to four times a [...] less than 7.0% ([facility]) 09/26/2013 Overview: ICD-10 update of [...] 50.0 to 59.9 in adult ( [facility]) 06/12/2017 12/19/2017 Overview: Per Obesity protocol #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 7 02/13/2018 Atypical chest pain 08/19/2016 01/17/2017 Depression with anxiety 08/19/2016 02/14/20 18 Hepatic cirrhosis ([facility]) 08/19/2016 03/28/20 17 Polyuria 08/09/2016 01/17/2017 Urinary frequency 08/09/2016 01/17/2017 Generalized OA 06/14/2016 03/28/2017 Body mass index (BMI) of 45.0-49.9 in adult ([facility] ) 12/09/2015 01/17/2017 Overview: bmi= 48.04 12/09/15 Need for shingles vaccine 12/09/20152015 Bilateral shoulder pain 08/25/2015 06/07/20 16 Bilateral shoulder pain 07/16/2015 06/07/20 16 Cerebral palsy ([facility]) 04/23/2015 03/28/2017 Candidal vulvovaginitis 02/12/2015 06/07/20 16 Obesity, morbid (more than 1 00 lbs over ideal weight or BMI > 40) ([facility]) 02/09/2015 03/28/2017 THAD (obstructive sleep [...] BMI > 40) ([facility]) 10/28/2013 01/17/2017 Overview: bmi= 53.93 [...] BMI > 40) ([facility]) 05/25/2012 01/17/2017 Overview: BMI= 55.27 [...] pain 01/24/2012 01/17/2017 Genetic Sleep Disorder Research Other*[id number] 05/13/2011 04/07/2016 Obstructive sleep apnea 01/18/2011 12/27/19 [...] BMI > 40) ([facility]) 12/08/2009 07/02/2014 Overview: Per Obesity [...] Vital Sign Reading Time Taken Blood Pressure 132/76 03/08/2018 10:18 AM EDT Pulse 72 03/08/2018 10:18 AM EDT Temperature 36.2 C (97.2 F) 03/08/2018 1 0:18 AM EDT Respiratory Rate - - Oxygen Saturation - - Inhaled Oxygen Concentration - - Weight 113.7 kg (250 lb 11.2 oz) 2017 10:18 AM EDT Height - - Body Mass Index 50.64 03/08/2018 10:18 AM EDT in this encounter Progress Notes * Lyssa Stout CRNP - 03/08/2018 10:41 AM EDT Formatting of this note may be different from the original. DATE OF SERVICE: 03/08/18 REFERRING PHYSICIAN: Self CC: F/U cirrhosis HPI: 09/20/16 - Shaina Bustos is [...] diarrheapersist. Last colonoscopy in 2008 - normal. 10/04/16 EGD: Grade I esophageal varices, gastritis, negative for Hpylori Colonoscopy: Internal hemorrhoids, negative biopsy, negative stool aspirates for infections. 10/25/16: Pt here for f/u. She is [...] for f/u cirrhosis. She had been to [facility] ED twice within last week (11/17, [...] has PCP appt next week and upcoming CERTIFIED DENTAL ASSISTANT appt for eval of possible uterine bleeding. [...] always in wheelchair when coming into office. Past Medical History: Diagnosis Date Chronic pain [...] Disorder Father of [place] at age 61 Heart Disorder Mother of [place] age 72 Diabetes Father Cancer None Arthritis None Stroke None Heart Disorder Sister Mi at age 46 Hypertension Sister Mental Disorder None Past Surgical History: Procedure Laterality Date DELIVERY 04/20/1982 COLONOSCOPY 04/21/09 repeat in 10 years COLONOSCOPY, DIAGNOSTIC (RECTUM) 10/04/2016 normal bx, repeat 10 yrs/[facility] DENTAL SURGERY PROCEDURE NEC wisdom teeth x 4 DILATION AND CURETTAGE (D&C) EGD, FLEXIBLE, DIAGNOSTIC 10/04/2016 gastritis/[facility] EGD, FLEXIBLE, DIAGNOSTIC 01/11/2018 eso varices, retained food, repeat 1 yr/[facility] PELVIS/HIP JOINT SURGERY NEC teenager aid in walking REPAIR/GRAFT ACHILLES TENDON age 40 aid in walking Social History Substance Use Topics Smoking status: Never Smoker Smokeless tobacco: Never Used Alcohol use No Comment: rare Review of patient's allergies indicates: Allergen Reactions Pcn [Penicillins] Rash Current Outpatient Prescriptions Medication Sig Dispense Refill vitamin c (ASCORBIC ACID) 500 MG Tablet [...] only taking once dailly. 60 Tab 5 cyclobenzaprine (FLEXERIL) 10 MG Tablet Take 1 Tab by mouth at bedtime. 30 Tab 0 Hydrocodone-Acetaminophen (NORCO) 10-325 MG per tablet Take 1 Tab by mouth 2 times a day as needed for Pain. 60 Tab 0 BD PEN NEEDLE MINI U/F 31G X 5 MM Use with Basaglar at bedtime. 30 Each 11 insulin glargine (LANTUS SOLOSTAR) 100 UNIT/ML SOPN Inject 24 units at bed time 5 Pre-filled Pen Syringe Dosing Unit 3 MetFORMIN (GLUCOPHAGE) 1000 MG Tablet Take 1 Tab by mouth 2 times a day. With food. 60 Tab 5 omeprazole (PRILOSEC) 20 MG CPDR Take 1 Cap by mouth daily. 90 Cap 1 traZODone (DESYREL) 50 MG Tablet Take 1 Tab by mouth at bedtime. 30 Tab 5 Dulaglutide (TRULICITY) 0.75 MG/0.5ML SOPN Inject 1 syringeful once weekly 4 Pre-filled Pen Syringe Dosing Unit 5 Glucose Blood (Citrus VERVaddio) STRP Use up to four times a day as directed.DX:E11.9 400 Strip 3 gabapentin (NEURONTIN) 300 MG Capsule One pill in am, one midday, two in pm, as directed, increase up to 2 capsules 3 times daily 180 Cap 5 Blood Glucose Monitoring Suppl (LightboxTOUCH VERIO) w/Device KIT Use up to 4 times a day E11.9 1 Kit 0 nystatin 667445 UNIT/GM cream Apply topically to affected area 2 times a day. To affacted area for two weeks. 15 g 2 fluticasone (FLONASE) 50 MCG/ACT nasal spray Administer 2 Sprays into each nostril daily. 1 Inhaler 5 Insulin Pen Needle 31G X 6 MM MISC Use with Lantus Solostar at bedtime 30 Each 3 atenolol (TENORMIN) 25 MG Tablet Take 1 Tab by mouth at bedtime. 30 Tab 5 atorvaSTATin (LIPITOR) 40 MG Tablet Take 1 Tab by mouth at bedtime. 90 Tab 1 fexofenadine (BERNARDA) 180 MG Tablet One pill by mouth once a day as needed for allergies 30 Tab 11 busPIRone (BUSPAR) 10 MG Tablet 0 Blood Glucose Monitoring Suppl (Citrus VERIO) W/DEVICE KIT Use as directed. Use daily to check blood sugars DX:E11.9 1 Kit 0 LightboxTOUCH ULTRASOFT LANCETS MISC Use as directed 4 times a day as needed (Use daily to check blood sugars DX:E11.9). Use up to four times a day as directed 1 Box Dosing Unit 11 Vitamin D, Ergocalciferol, 77005 UNITS Capsule 1capsule every other week 8 Cap 6 albuterol (PROVENTIL HFA) 108 (90 BASE) MCG/ACT inhaler Inhale 2 Puffs by mouth 4 times a day. 1 Inhaler 1 Glucosamine-Chondroitin (GLUCOSAMINE CHONDR COMPLEX) 500-400 MG Capsule Take 1 Cap by mouth 3 times a day. 1 Cap 0 nystatin (NYSTOP) powder Apply topically to affected area 3 times a day. Sprinkle over affectedarea. 1 Bottle 1 Azelastine HCl (ASTELIN) 0.1 % nasal spray Administer 2 Sprays into each nostril 2 times a day.1 Bottle 11 OCEAN NASAL SPRAY 0.65 % NA SOLN Two sprays in each nostril as needed for nasal dryness or congestion 1 Bottle 5 BETAMETHASONE VALERATE 0.1 % EX CREA apply to affected area twice daily, as needed 30 g 1 ASPIRIN 81 MG PO TABS one tab by mouth daily 34 Tab 5 CENTRUM SILVER PO TABS 1 tab daily 1 Tab 0 albuterol-ipratropium (DUONEB) 2.5-0.5 MG/3ML nebulizer solution Use 1 vial in nebulizer 180 mL 0 furosemide (LASIX) 20 MG Tablet One pill by mouth once a day, as needed for edema 30 Tab 5 NEBULIZER KORTNEY as directed 1 0 REVIEW OF SYSTEMS: See HPI above; All other findings negative. Filed Vitals: 03/08/18 1018 BP: 132/76 Pulse: 72 Temp: 36.2 C (97.2 F) TempSrc: Tympanic Weight: 113.7 kg (250 lb 11.2 oz) GENERAL: Well developed and well nourished, in no acute distress SKIN: No rashes, ulcers, jaundice or spider angiomata. HEENT: Normocephalic, sclera clear. NECK: Supple, trachea midline, no JVD LUNGS: Clear to auscultation bilaterally, no respiratory distress or accessory muscles used. HEART: Regular rate & rhythm, no murmurs and no gallops. ABDOMEN: Normal bowel sounds, soft and non tender. EXTREMITIES: No palmar erythema, non pitting edema on lower legs, no skin discoloration, no clubbing, no cyanosis. NEURO: No lateralizing findings. Sensory/Motor grossly normal. ASSESSMENT AND PLAN: Shaina Bustos is a 62 year old female w NALFD Cirrhosis. MELD 6. No signs of decompensation at this time. - CBC, CMP from 02/13/18 reviewed. Will order AFP, PT/INR and Hep A and B antibody checks today - Last EGD: 01/11/2017 2 grade I esophageal varices; food in stomach. Repeat EGD in 1 year's time with CL x 48hrs prior to EGD. She is on Atenolol, will message PCP if ok to switch to non selective beta roxana. - Last Colonoscopy: 2016 - int hemorrhoids, due for repeat in 10 yrs. - Hep A immunity: will need checked, if not immune can initiate vaccination - Hep B immunity: will need checked, if not immune can initiate vaccination - HCC screening [id number]: last CT abd/pelvis 09/28; + cirrhosis ,no mention of liver mass. Repeat u/s in March and check AFP - Encouraged to abstain from ETOH, illicit drugs, APAP no more than 2g daily - Low salt (2g) daily RTC: 3 months; or sooner prn. ZAK Schreiber Gastroenterology, Nano Fernandes in this encounter Nursing Notes * Alirio Corcoran LPN - 03/08/2018 10:17 AM EDT Formatting of this note may be different from the original. Patient identified by name and date of . Chief Complaint Patient presents with Follow Up 3 month follow up- no current symptoms. Symptoms: NO symptoms Bowel Movement frequency: every other day normally but it has been a couple days Bowel Movement consistency: loose Straining: no Rectal pain: no Blood in stool: no Type of blood: N/A in this encounter Plan of Treatment Upcoming Encounters Date Type Specialty Care Team Description 03/12/[address] [facility] [address] [place] [place] [address] [phone] 03/15/2018 Imaging Radiology 03/20/2018 Office Visit Dermatology Rachel Hill MD [address] [place] [address], [place] [address] [phone] 03/28/2018 Office Visit Family Medicine Rajwinder Carter, DO [address] [place] [facility] [place] [address] [phone] 03/30/2018 Office Visit Gastroenterology Angela Gonzalez, DO [address] [place] [address] [phone] 04/25/2018 Office Visit Gastroenterology Angela Gonzalez, DO [address] [place] [address] [phone] 06/07/2018 Office Visit Gastroenterology Lyssa Stout CRNP [address] [facility] [address] [phone] 08/07/2018 Office Visit Sleep Disorders [facility] [address] [facility] [place] [address] [phone] [place] [facility] [address] [facility] [place] [address] [phone] 12/19/2018 Office Visit Gynecology Obstetrics Irene Mujica CRNP [address] [facility] [place] [address] [phone] Pending Results Name Priority Associated Diagnoses Date/Ti me ALPHA-FETOPROTEIN Routine Cirrhosis of liver without ascites, unspecified hepatic cirrhosis type (HCC) 03/08/2018 11:06 AM EDT HEP A AB G+M Routine Cirrhosis of liver without ascites, unspecified hepatic cirrhosis type (HCC) 03/08/2018 11:06 AM EDT HEPATITIS B SURFACE ANTIBODY Routine Cirrhosis of liver without ascites, unspecified hepatic cirrhosis type (HCC) 03/08/2018 11:06 AM EDT Scheduled Tests Name Priority Associated Diagnoses Order S chedule ALPHA-FETOPROTEIN Routine Cirrhosis of liver without ascites, unspecified hepatic cirrhosis type (HCC) Expected: 03/08/2018 (Approximate), Expires: 06/08/2018 HEP A AB G+M Routine Cirrhosis of liver without ascites, unspecified hepatic cirrhosis type (HCC) Expected: 03/08/2018 (Approximate), Expires: 06/08/2018 HEPATITIS B SURFACE ANTIBODY Routine Cirrhosis of liver without ascites, unspecified hepatic cirrhosis type (HCC) Expected: 03/08/2018 (Approximate), Expires: 06/08/2018 US ABDOMEN LIMITED Routine Cirrhosis of liver without ascites, unspecified hepatic cirrhosis type (HCC) Ordered: 03/08/2018 Health Maintenance Due Date Last Done Comments [...] on fileas of this encounter Results * PT/INR (03/08/2018 11:06 AM) Component Value Ref Range PT/INR-PT 13.2 11.5 - 14.6 seco nds PT/INR-INR 1.03 0.87 - 1.17 Specimen Performing Laborator [facility] [employer] LAB PROCESSING [facility] [address] [place] [address] in this encounter Visit Diagnoses Diagnosis Cirrhosis of liver without a scites, unspecified hepatic cirrhosis type (HCC) - Primary in this encounter
--- OUTSIDE RECORDS SUMMARY | 2023-05-10 23:25 | External Medical Summary | Summary of Care ---
Author Name Unknown Organization [place] [address] Phone Care Team Providers Care Sawmill Or Timber Yard Worker Name Role Phone Rajwinder Carter Primary Care Provider Encounter Details Date Type Department Care Team Description 03/07/2018 Scan Encounter Unspecified Department <No scans attached> [...] Inhaler 1 06/29/2016 Active Vitamin D, Ergocalciferol, 71584 UNITS CapsuleIndications:Vi tamin D deficiency 1capsule every other week 8 Cap 6 09/27/2016 Active Blood Glucose Monitoring Suppl (SMSA CRANE ACQUISITIONTOUCH VERIO) W/DEVICE KITIndications:Type 2 diabetes mellitus with [...] bedtime 30 Each 3 10/11/2017 Active nystatin 098420 UNIT/GM creamIndications:Cand idal vulvovaginitis Apply topically to affected area 2 times a day. To affacted area for two weeks. 15 g 2 10/12/2017 Active Blood Glucose Monitoring Suppl (C-narioIO) w/Device KITIndications:Type 2 diabetes mellitus with hemoglobin A1c goal of less than 7.0% (HCC) Use up to 4 times a day E11.9 1 Kit 0 10/17/2017 Active gabapentin (NEURONTIN) 300 MG Capsule One pill in am, one midday, two in pm, as directed, increase up to 2 capsules 3 times daily 180 Cap 5 11/16/2017 Active Glucose Blood (SMSA CRANE ACQUISITIONTOUCH VERIO) STRP Use up to four times [...] 40) ([facility]) 02/09/2015 03/28/2017 THAD (obstructive sleep [...] pain 01/24/2012 01/17/2017 Genetic Sleep Disorder Research Other*[id number] 05/13/2011 04/07/2016 Obstructive sleep apnea 01/18/2011 12/27/19 [...] Specialty Care Team Description 03/12/2018 [facility] [address] [facility] [address] [phone] 03/15/2018 Imaging Radiology 03/20/2018 Office Visit Dermatology Rachel Hill MD [address] [place] [address], [place] [address] [phone] 03/28/2018 Office Visit Family Medicine Rajwinder Carter DO [address] [place] [address] [phone] 03/30/2018 Office Visit Gastroenterology Angela Gonzalez, DO [address] [place] [address] [phone] 04/25/2018 Office Visit Gastroenterology Angela Gonzalez, DO [address] [place] [address] [phone] 06/07/2018 Office Visit Gastroenterology Lyssa Stout CRNP [address] [place] [address] [phone] 08/07/2018 Office Visit Sleep Disorders Lanette Fields CRNP [address] [place] [address] [phone] Nurse [facility] [address] [place] [address] [phone] 12/19/2018 Office Visit Gynecology Obstetrics Irene Mujica CRNP [address] [place] [address] [phone] Health Maintenance Due Date Last Done Comments [...]
--- OUTSIDE RECORDS SUMMARY | 2023-05-10 23:25 | External Medical Summary | Summary of Care ---
Author Name Unknown Organization [place] [address] Phone Care Team Providers Care Geological Technician Name Role Phone ArabellaRajwinder thacker Belen MORENO Primary Care Provider [phone] Reason for Visit * Reason Comments Dosage Adjustment In Person (Anticoag Cl inic) DIABETES FOLLOW-UP Encounter Details Date Type Department Care Team Description 03/12/2018 Pharmacy Pharmacy, [place] [address] [place] [address] [facility] [address] [place] [address] [phone] Type 2 diabetes mellitus with hemoglobin A1c [...] Inhaler 1 06/29/2016 Active Vitamin D, Ergocalciferol, 22730 UNITS CapsuleIndications: Vitamin D deficiency 1capsule every other week 8 Cap 6 09/27/2016 Active Blood Glucose Monitoring Suppl (AlgisysTOUCH VERIO) W/DEVICE KITIndications:Type 2 diabetes mellitus with hemoglobin A1c goal of less than 7.0% (HCC) Use as directed. Use daily to check blood sugars DX:E11.9 1 Kit 0 01/17/2017 Active AlgisysTOUCH ULTRASOFT LANCETS MISCIndications:Typ e 2 diabetes mellitus [...] bedtime 30 Each 3 10/11/2017 Active nystatin 552097 UNIT/GM creamIndications:Ca ndidal vulvovaginitis Apply topically to affected area 2 times a day. To affacted area for two weeks. 15 g 2 10/12/2017 Active Blood Glucose Monitoring Suppl (AlgisysTOUCH VERIO) w/Device KITIndications:Type 2 diabetes mellitus with hemoglobin A1c goal of less than 7.0% (HCC) Use up to 4 times a day E11.9 1 Kit 0 10/17/2017 Active gabapentin (NEURONTIN) 300 MG Capsule One pill in am, one midday, two in pm, as directed, increase up to 2 capsules 3 times daily 180 Cap 5 11/16/2017 Active Glucose Blood (AlgisysTOUCH VERIO) STRP Use up to four times [...] Pen Syringe Dosing Unit 5 03/12/2018 Active Dulaglutide (TRULICITY) 0.75 MG/0.5ML SOPN Inject [...] THAD on CPAP 12/26/2017 Cirrhosis of liver ([facility]) 11/20/2017 History of Clostridium difficile colitis 08/29/2017 Chronic pain syndrome 01/17/2017 MEDICATION USE AGREEMENT 01/17/2017 Overview: 01/17/17 Acquired hypothyroidism 12/12/2016 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 1 10/09/2015 Restrictive lung disease 12/10/2014 Type 2 diabetes mellitus with hemoglobin A1c goal of less than 7.0% ([facility]) 09/26/2013 Overview: ICD-10 update of inactive term Vitamin D deficiency 09/26/2013 Lymphedema 03/11/2013 Intermittent asthma with reliever use up to twice per week 01/09/2013 Stasis dermatitis 05/07/2012 NG (nonalcoholic steatohepatitis) 04/12 HTN, goal below 140/90 03/27/2012 Chronic rhinitis 03/27/2012 Cerebral palsy ([facility]) 01/24/2012 Spinal stenosis of lumbar [...] of 50.0 to 59.9 in adult ( [facility]) 06/12/2017 12/19/2017 Overview: Per Obesity protocol #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 7 02/13/2018 Atypical chest pain 08/19/2016 01/17/2017 Depression with anxiety 08/19/2016 02/14/20 18 Hepatic cirrhosis (HCC) 08/19/2016 03/28/20 17 Polyuria 08/09/2016 01/17/2017 Urinary frequency 08/09/2016 01/17/2017 Generalized OA 06/14/2016 03/28/2017 Body mass index (BMI) of 45.0-49.9 in adult ([facility] ) 12/09/2015 01/17/2017 Overview: bmi= 48.04 12/09/15 Need for shingles vaccine 12/09/20152015 Bilateral shoulder pain 08/25/2015 06/07/20 16 Bilateral shoulder pain 07/16/2015 06/07/20 16 Cerebral palsy ([facility]) 04/23/2015 03/28/2017 Candidal vulvovaginitis 02/12/2015 06/07/20 16 Obesity, morbid (more than 1 00 lbs over ideal weight or BMI > 40) ([facility]) 02/09/2015 03/28/2017 THAD (obstructive sleep [...] or BMI > 40) ([facility]) 10/28/2013 01/17/2017 Overview: bmi= 53.93 [...] or BMI > 40) ([facility]) 05/25/2012 01/17/2017 Overview: BMI= 55.27 [...] pain 01/24/2012 01/17/2017 Genetic Sleep Disorder Research Other*[id number] 05/13/2011 04/07/2016 Obstructive sleep apnea 01/18/2011 12/27/19 [...] or BMI > 40) ([facility]) 12/08/2009 07/02/2014 Overview: Per Obesity [...] this encounter Progress Notes * Shelli Osorio, [facility] - 03/12/2018 10:50 AM EDT Formatting of this note may be different from the original. Medication Therapy Disease Management Diabetes Interval History: Shaina Bustos is an 62 year old year old female returning to the [facility] for a diabetes follow-up appointment. Blood glucose control since last visit: improved (i.e. improved, worse, stable) Medication intolerance: no Medication compliance: compliant Hospitalization or ED Utilization since last visit: no Hypoglycemia requiring assistance since last visit: no Symptoms of hyperglycemia or hypoglycemia present today: no Diet: much improved- cut out bagels, regular soda and decreased bread Exercise: none Current Diabetes Medications: Lantus 24 units daily Trulicity 0.75mg once weekly Metformin 1000mg twice daily Self-Monitoring Blood Glucose Review: Patient currently tests blood glucose 3 or 4 time(s) daily Pre AM meal Pre Lunch Pre PM meal Bedtime Average 157 169 133 139 Hi 193 241 170 155 Lo 135 117 102 122 Range 58 124 68 33 Hypoglycemia: 1. Do you know what the [...] of less than 7.0% ([facility]) E11.9 Vitamin D deficiency E55.9 Restrictive lung disease J98.4 Dyslipidemia, goal LDL below 70 E78.5 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 R39.81 Acquired hypothyroidism E03.9 Chronic pain syndrome G89.4 MEDICATION USE AGREEMENT [id number] History of Clostridium difficile colitis Z86.19 Cirrhosis of liver ([facility]) K74.60 THAD on CPAP G47.33, Z99.89 Review of patient's allergies indicates: Allergen Reactions Pcn [Penicillins] Rash Current Outpatient Prescriptions Medication Sig Dispense Refill Hydrocodone-Acetaminophen 10-325 MG per tablet take 1 tablet by mouth twice a day if needed for pain 60 Tab 0 vitamin c (ASCORBIC ACID) 500 [...] by mouth at bedtime. 30 Tab 0 BD PEN NEEDLE MINI [...] 1 syringeful once weekly 4 Pre-filled Pen SyringeDosing Unit 5 Glucose Blood (WiTricity) STRP Use up to four times a day as directed.DX:E11.9 400 Strip 3 gabapentin (NEURONTIN) 300 MG Capsule One pill in am, one midday, two in pm, as directed, increase up to 2 capsules 3 times daily 180 Cap 5 Blood Glucose Monitoring Suppl (WiTricity) w/Device KIT Use up to 4 times a day E11.9 1 Kit 0 nystatin 728333 UNIT/GM cream Apply topically to affected area [...] as needed for edema 30 Tab 5 busPIRone (BUSPAR) 10 MG Tablet 0 Blood Glucose Monitoring Suppl (WiTricity) W/DEVICE KIT Use as directed. Use daily to check blood sugars DX:E11.9 1 Kit 0 ONETOUCH ULTRASOFT LANCETS [facility] Use as directed 4 times a day as needed (Use daily to check blood sugars DX:E11.9). Use up to four times a day as directed 1 Box Dosing Unit 11 Vitamin D, Ergocalciferol, 63300 UNITS Capsule 1capsule every other week 8 Cap 6 albuterol (PROVENTIL HFA) 108 (90 BASE) MCG/ACT inhaler Inhale 2 Puffs by mouth 4 times a day. 1 Inhaler 1 Glucosamine-Chondroitin (GLUCOSAMINE CHONDR COMPLEX) 500-400 MG Capsule Take 1 Cap by mouth 3 timesa day. 1 Cap 0 nystatin (NYSTOP) powder Apply topically to affected area 3 times a day. Sprinkle over affected area. 1 Bottle 1 Azelastine HCl (ASTELIN) 0.1 % nasal spray Administer 2 Sprays into each nostril 2 times a day. 1 Bottle 11 OCEAN NASAL SPRAY 0.65 % [...] 1 0 Objective: The ASCVD Risk score ([place] BROOKLYN Jr, et al., 2013) failed to calculate for the following reasons: The valid total cholesterol range is 130 to 320 mg/dL Estimated body mass index is 50.64 kg/(m^2) as calculated from the following: Height as of 12/08/17: 1.499 m (4' 11"). Weight as of 03/08/18: 113.7 kg (250 lb 11.2 oz). BP Readings from Last 3 Encounters: 03/08/18 132/76 02/23/18 128/72 02/21/18 118/76 No POC orders found HEMOGLOBIN, A1C(%) Lucio [...] Assessment & Plan: Glycemic control is stable but not at goal. Patient agreeable to adjust medications as noted below. Reviewed patient's BG log. She has been seeing nutrition and having great success. She has lost weight and is feeling better. BG levels have decreased and she is now covering her breakfast meal. Overall Ave still not to goal. Will increase Trulicity. Patient is agreeable to SMBG 4 time(s) daily. Patient aware to contact clinic if any hypoglycemia before next visit. Reviewed rule of 15s. Diabetes Medications: Lantus 24 units daily Trulicity 1.5mg once weekly Metformin 1000mg twice daily Diabetes Health Maintenance: up to date Return to clinic: 12 week(s) Next Office Visit: No Future Appointments Jo Faulkner RPh, Pharm D, CACP, CDE Clinical Pharmacist Medication Therapy Disease Management 03/12/2018, 10:50 AM in this encounter Plan of Treatment Upcoming Encounters Date Type Specialty Care Team Description 03/15/2018 Imaging Radiology 03/15/2018 Nurse Only Gastroenterology Nurse Anthony Fernandes [address] [place] [address] [phone] 03/20/2018 Office Visit Dermatology Rachel Hill MD [address] [place] [address] [phone] 03/28/2018 Office Visit Family Medicine Rajwinder Carter DO [address] [place] [address] [phone] 03/30/2018 Office Visit [facility] [address] [facility] [address] 04/25/2018 Office Visit Gastroenterology Angela Gonzalez, DO [address] [facility], [place] [id number] 06/07/2018 Office Visit Gastroenterology [facility]sa [facility] [address] [facility] [place] [address] [phone] 06/11/2018 [address] [address] [phone] 08/07/2018 Office Visit Sleep Disorders Lanette Fields [facility] [address] [facility] [place] [address] [phone] [facility] [address] [facility] [place] [address] [phone] 12/19/2018 Office Visit Gynecology Obstetrics Irene Mujica CRNP [address] [facility] [place] [address] [phone] Health Maintenance Due Date Last Done Comments [...]
--- OUTSIDE RECORDS SUMMARY | 2023-05-10 23:25 | External Medical Summary ---
Author Name Unknown Address [address] [place] [address] Phone Organization K01:[facility] [address] [address] Laboratory Report Ordering Provider Test Date Status ODESSA GUSMAN 03/08/2018 11:06:00 Final Observation Date Value Abnormality Reference Status Hep A, IgG and/or IgM 03/08/2018 17:43 NEGATIVE N EG Final Performing Location [facility] [address] [id number]
--- OUTSIDE RECORDS SUMMARY | 2023-05-10 23:25 | External Medical Summary | Summary of Care ---
Author Name Unknown Organization [place] [address] Phone Care Team Providers Care Secondary Set Up Man Name Role Phone ArabellaRajwinder thacker Primary Care Provider [phone] Encounter Details Date Type Department Care Team Description 01/24/2017 Orders Only Urology, [place] [address] [place] [address] Kavya Ramirez MD [address] [place] [address] 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* Allergies Active Allergy Reactions Severity Noted Date [...] Inhaler 1 06/29/2016 Active Vitamin D, Ergocalciferol, 84282 UNITS CapsuleIndications:Vi tamin D deficiency 1capsule every other week 8 Cap 6 09/27/2016 Active Blood Glucose Monitoring Suppl (Prepared ResponseTOUCH VERIO) W/DEVICE KITIndications:Type 2 diabetes mellitus with [...] 1 Box Dosing Unit 11 01/17/2017 Active as of this encounter Active Problems [...] to 59.9 in adult ( [facility]) 06/12/2017 12/19/2017 Overview: Per Obesity protocol #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 7 02/13/2018 Atypical chest pain 08/19/2016 01/17/2017 Depression with anxiety 08/19/2016 02/14/20 18 Hepatic cirrhosis ([facility]) 08/19/2016 03/28/20 17 Polyuria 08/09/2016 01/17/2017 Urinary frequency 08/09/2016 01/17/2017 Generalized OA 06/14/2016 03/28/2017 Body mass index (BMI) of 45.0-49.9 in adult ([facility] ) 12/09/2015 01/17/2017 Overview: bmi= 48.04 12/09/15 Need for shingles vaccine 12/09/20152015 Bilateral shoulder pain 08/25/2015 06/07/20 16 Bilateral shoulder pain 07/16/2015 06/07/20 16 Cerebral palsy ([facility]) 04/23/2015 03/28/2017 Candidal vulvovaginitis 02/12/2015 06/07/20 16 Obesity, morbid (more than 1 00 lbs over ideal weight or BMI > 40) ([facility]) 02/09/2015 03/28/2017 THAD (obstructive sleep apnea) 02/09/2015 [...] or BMI > 40) ([facility]) 10/28/2013 01/17/2017 Overview: bmi= 53.93 10/28/13 Sleep [...] or BMI > 40) ([facility]) 05/25/2012 01/17/2017 Overview: BMI= 55.27 05/25/12 Impacted [...] pain 01/24/2012 01/17/2017 Genetic Sleep Disorder Research Other*[id number] 05/13/2011 04/07/2016 Obstructive sleep apnea 01/18/2011 12/27/19 [...] Lipid Taxonomy. Other specified infantile cerebral palsy (HCC) 0 09/24/2007 01/24/2012 Abdominal pain, right upper quadrant 09/24/2007 07/25/2011 OA OF LUMBAR SPINE 09/24/2007 06/07/2016 Prediabetes 10/28/2013 as of this encounter Immunizations Name Dates Previously Given Next Due Pneumococcal Polyvalent Vacc (Pneumovax) 06/01/2010 Seasonal Influenza, Quadriva lent, No Preserve, IM 06/07/2016 Seasonal Influenza, Trivalen t, with Preserve, 3yr & Above, Split 05/22/2015,05/29/2014,07/25/2013,,06/02/2011,06/01/2010,2008,08/18/2008 05/22/2016 TDAP (age 11 and older)(Adacel) 05/26/2008 Varicella Zoster Vaccine (Adult) 12/09/2015 as of this encounter Social History Tobacco Use Types Packs/Day Years Used Date Never Smoker Smokeless Tobacco: Never Used Alcohol Use Drinks/Week oz/Week Comments Yes rare Sex Assigned at Date Recorded Not on file as of this encounter Plan of Treatment Upcoming Encounters Date Type Specialty Care Team Description 03/08/2018 Office Visit Gastroenterology Lyssa Stout CRNP [address] [place] [address] [phone] 03/12/2018 Pharmacy Pharmacy [facility] [address] [place] [address] [phone] 03/20/2018 Office Visit Dermatology Rachel Hill MD [address] [place] [address] [phone] 03/28/2018 Office Visit Family Medicine Rajwinder Carter DO [address] [place] [facility] [place] [address] [phone] 03/30/2018 Office Visit Gastroenterology Angela Gonzalez, DO [address] [place] [address] [phone] 04/25/2018 Office Visit Gastroenterology Angela Gonzalez, DO [address] [place] [address] [phone] 08/07/2018 Office Visit Sleep Disorders Lanette Fields CRNP [address] [place] [address] [phone] Nurse [facility] [address] [place] [address] [address] [phone] 12/19/2018 Office Visit Gynecology Obstetrics Irene Mujica CRNP [address] [place] [address] [phone] Scheduled Tests Name Priority Associated Diagnoses Order S chedule POST VOID RESIDUAL BLADDER US Routine 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 Expected: 01/31/2017, Expires: 02/24/2018 Health Maintenance Due Date Last Done Comments [...] fileas of this encounter Visit Diagnoses Diagnosis 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 - Primary Functional urinary incontinence in this encounter
--- OUTSIDE RECORDS SUMMARY | 2023-05-10 23:25 | External Medical Summary ---
Author Name Unknown Address [address] [place] [address] Phone Organization K01:[facility] [address] [id number] Laboratory Report Ordering Provider Test Date Status ODESSA GUSMAN 03/08/2018 11:06:00 Final Observation Date Value Abnormality Reference Status Alpha-Fetoprotein 03/09/2018 12:04 3.2 0-6.7 Final Performing Location [facility] [address] [facility] [address]
--- OUTSIDE RECORDS SUMMARY | 2023-05-10 23:26 | External Medical Summary | Summary of Care ---
Author Name Unknown Organization [place] [address] Phone Care Team Providers Care Feed Elevator Worker Name Role Phone Rajwinder Carter DO Primary Care Provider [phone] Reason for Visit * Reason Comments ADVICE ORDER REQUEST Encounter Details Date Type Department Care Team Description 02/27/2018 Telephone [place] [address] [place] [address] Rajwinder Carter DO [address] [place] [address] [phone] ADVICE; ORDER REQUEST Allergies Active Allergy Reactions [...] Inhaler 1 06/29/2016 Active Vitamin D, Ergocalciferol, 11268 UNITS CapsuleIndications:Vi tamin D deficiency 1capsule every other week 8 Cap 6 09/27/2016 Active Blood Glucose Monitoring Suppl (ZeniMax VERIO) W/DEVICE KITIndications:Type 2 diabetes mellitus with hemoglobin A1c goal of less than 7.0% (HCC) Use as directed. Use daily to check blood sugars DX:E11.9 1 Kit 0 01/17/2017 Active Infusion ResourceTOUCH ULTRASOFT LANCETS MISCIndications:Type 2 diabetes mellitus with [...] bedtime 30 Each 3 10/11/2017 Active nystatin 412409 UNIT/GM creamIndications:Cand idal vulvovaginitis Apply topically to affected area 2 times a day. To affacted area for two weeks. 15 g 2 10/12/2017 Active Blood Glucose Monitoring Suppl (ZeniMax VERIO) w/Device KITIndications:Type 2 diabetes mellitus with hemoglobin A1c goal of less than 7.0% (HCC) Use up to 4 times a day E11.9 1 Kit 0 10/17/2017 Active gabapentin (NEURONTIN) 300 MG Capsule One pill in am, one midday, two in pm, as directed, increase up to 2 capsules 3 times daily 180 Cap 5 11/16/2017 Active Glucose Blood (Infusion ResourceTOUCH VERIO) STRP Use up to four times [...] 08/19/2016 02/14/20 18 Hepatic cirrhosis ([facility]) 08/19/2016 03/28/20 17 Polyuria 08/09/2016 01/17/2017 [...] > 40) ([facility]) 02/09/2015 03/28/2017 THAD (obstructive sleep apnea) [...] pain 01/24/2012 01/17/2017 Genetic Sleep Disorder Research Other*[id number] 05/13/2011 04/07/2016 Obstructive sleep apnea 01/18/2011 12/27/19 [...] Notes * Telephone Encounter - Rajwinder Carter, DO - 02/28/2018 2:10 PM EDT Please let bookkeeping clerks supervisor know: 1. Electric wheelchairs are very difficult to get covered. She may need another evaluation at [facility] but we can send an order if they would like. Where do they want it faxed? * Telephone Encounter - Susan Rosales RN - 02/28/2018 10:08 AM EDT Does patient need eval at [facility] for electric wheel chair * Telephone Encounter - Radha Elias OSA - 02/28/2018 9:19 AM EDT An order was requested for this patient. Name of Requestor: Patient Order Requested: electronic chair Diagnosis/Reason for Request: Does the order need to be faxed somewhere? If so, where?: Yes,bookkeeping clerks supervisor Dulce Angulo Fax Number, if applicable: [phone] Call Back Number: [phone] * Telephone Encounter - Carlee Hadley, THAD - 02/27/2018 11:50 AM EDT Reason for patient's call: Pt calling in regarding an an electric chair, stating she needs information for her social professionals. Attempted to help the pt, but had [...] Stout CRNP [address] [facility] [place] [address] [phone] 03/12/2018 Pharmacy Pharmacy [facility] [address] [place] [address] [phone] 03/20/2018 Office Visit Dermatology Rachel Hill MD [address] [place] [address] [phone] 03/28/2018 Office Visit Family Medicine Rajwinder Carter, DO [address] [place] [address] [address] [phone] 03/30/2018 Office Visit Gastroenterology Angela Gonzalez, DO [address] [place] [address] [phone] 04/25/2018 Office Visit Gastroenterology Angela Gonzalez, DO [address], [place] [phone] 08/07/2018 Office Visit Sleep Disorders Lanette Fields CRNP [address] [facility] [place] [address] [phone] Nurse [facility] [address] [facility] [place] [address] [phone] 12/19/2018 Office Visit Gynecology Obstetrics Irene Mujica CRNP [address] [place] [address] Health Maintenance Due Date Last Done [...]
--- OUTSIDE RECORDS SUMMARY | 2023-05-10 23:26 | External Medical Summary | Summary of Care ---
Author Name Unknown Organization [place] [address] Phone Care Team Providers Care Baked And Graphite Inspector Name Role Phone Rajwinder Carter DO Primary Care Provider [phone] Reason for Visit * Reason Comments ADVICE ORDER REQUEST Encounter Details Date Type Department Care Team Description 02/27/2018 Telephone [place] [address] [place] [address] Rajwinder Carter DO [address] [place] [address] [phone] ADVICE; ORDER REQUEST Allergies Active Allergy Reactions [...] Inhaler 1 06/29/2016 Active Vitamin D, Ergocalciferol, 85901 UNITS CapsuleIndications:Vi tamin D deficiency 1capsule every other week 8 Cap 6 09/27/2016 Active Blood Glucose Monitoring Suppl ([employer] VERIO) W/DEVICE KITIndications:Type 2 diabetes mellitus with hemoglobin A1c goal of less than 7.0% (HCC) Use as directed. Use daily to check blood sugars DX:E11.9 1 Kit 0 01/17/2017 Active GridCOM TechnologiesTOUCH ULTRASOFT LANCETS MISCIndications:Type 2 diabetes mellitus with hemoglobin A1c goal of less than 7.0% (HCC) Use as directed 4 times a day as needed (Use daily to check blood sugars DX:E11.9). Use up to four times a day as directed 1 Box Dosing Unit 11 01/17/2017 Active busPIRone (BUSPAR) 10 MG Tablet 0 02/14/2017 Active furosemide (LASIX) 20 MG TabletIndications:Erikcson ma,Stasis dermatitis One pill by mouth once [...] bedtime 30 Each 3 10/11/2017 Active nystatin 006373 UNIT/GM creamIndications:Cand idal vulvovaginitis Apply topically to affected area 2 times a day. To affacted area for two weeks. 15 g 2 10/12/2017 Active Blood Glucose Monitoring Suppl ([employer] VERIO) w/Device KITIndications:Type 2 diabetes mellitus with hemoglobin A1c goal of less than 7.0% (HCC) Use up to 4 times a day E11.9 1 Kit 0 10/17/2017 Active gabapentin (NEURONTIN) 300 MG Capsule One pill in am, one midday, two in pm, as directed, increase up to 2 capsules 3 times daily 180 Cap 5 11/16/2017 Active Glucose Blood (GridCOM TechnologiesTOUCH VERIO) STRP Use up to four [...] than 7.0% ([facility]) Inject 24 units at bed [...] than 7.0% ([facility]) 09/26/2013 Overview: ICD-10 update of [...] 50.0 to 59.9 in adult ( [facility]) 06/12/2017 12/19/2017 Overview: Per Obesity protocol #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 7 02/13/2018 Atypical chest pain 08/19/2016 01/17/2017 Depression with anxiety 08/19/2016 02/14/20 18 Hepatic cirrhosis ([facility]) 08/19/2016 03/28/20 17 Polyuria 08/09/2016 01/17/2017 Urinary frequency 08/09/2016 01/17/2017 Generalized OA 06/14/2016 03/28/2017 Body mass index (BMI) of 45.0-49.9 in adult ([facility] ) 12/09/2015 01/17/2017 Overview: bmi= 48.04 12/09/15 Need for shingles vaccine 12/09/20152015 Bilateral shoulder pain 08/25/2015 06/07/20 16 Bilateral shoulder pain 07/16/2015 06/07/20 16 Cerebral palsy ([facility]) 04/23/2015 03/28/2017 Candidal vulvovaginitis 02/12/2015 06/07/20 16 Obesity, morbid (more than 1 00 lbs over ideal weight or BMI > 40) ([facility]) 02/09/2015 03/28/2017 THAD (obstructive sleep [...] BMI > 40) ([facility]) 10/28/2013 01/17/2017 Overview: bmi= 53.93 [...] BMI > 40) ([facility]) 05/25/2012 01/17/2017 Overview: BMI= 55.27 [...] pain 01/24/2012 01/17/2017 Genetic Sleep Disorder Research Other*[id number] 05/13/2011 04/07/2016 Obstructive sleep apnea 01/18/2011 12/27/19 [...] encounter Miscellaneous Notes * Telephone Encounter - EliasRadha Abhishek, THAD - 02/28/2018 9:19 AM EDT An order was requested for this patient. Name of Requestor: Patient Order Requested: electronic chair Diagnosis/Reason for Request: Does the order need to be faxed somewhere? 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 Attempted to help the pt, but had [...] Stout CRNP [address] [facility] [place] [address] [phone] 03/12/2018 Pharmacy Pharmacy [facility] [address] [facility] [address] [phone] 03/20/2018 Office Visit Dermatology Rachel Hill MD [address] [facility] [place] [address] [phone] 03/28/2018 Office Visit Family Medicine Rajwinder Carter DO [address] [facility] [address] [phone] 03/30/2018 Office Visit Gastroenterology Angela Gonzalez DO [address] [place] [address] [phone] 04/25/2018 Office Visit Gastroenterology Angela Gonzalez, DO [address] [facility], [place] [address] [phone] 08/07/2018 Office Visit Sleep Disorders Lanette Fields CRNP [address] [facility] [place] [address] [phone] Nurse [facility] [address] [facility] [place] [address] [phone] 12/19/2018 Office Visit Gynecology Obstetrics Irene Mujica CRNP [address] [place] [address] [phone] Health Maintenance Due Date Last Done Comments [...]
--- OUTSIDE RECORDS SUMMARY | 2023-05-10 23:26 | External Medical Summary | Summary of Care ---
Author Name Unknown Organization [place] [address] Phone Care Team Providers Care Furnace Keeper Name Role Phone Rajwinder Carter DO Primary Care Provider [phone] Reason for Visit * Reason Comments ADVICE ORDER REQUEST Encounter Details Date Type Department Care Team Description 02/27/2018 Telephone [place] [address] [place] [address] Rajwinder Carter DO [address] [place] [address] [phone] ADVICE; ORDER REQUEST Allergies Active Allergy Reactions [...] Inhaler 1 06/29/2016 Active Vitamin D, Ergocalciferol, 16010 UNITS CapsuleIndications:Vi tamin D deficiency 1capsule every other week 8 Cap 6 09/27/2016 Active Blood Glucose Monitoring Suppl ([employer] VERIO) W/DEVICE KITIndications:Type 2 diabetes mellitus with hemoglobin A1c goal of less than 7.0% (HCC) Use as directed. Use daily to check blood sugars DX:E11.9 1 Kit 0 01/17/2017 Active SlingboxTOUCH ULTRASOFT LANCETS MISCIndications:Type 2 diabetes mellitus with [...] bedtime 30 Each 3 10/11/2017 Active nystatin 275586 UNIT/GM creamIndications:Cand idal vulvovaginitis Apply topically to affected area 2 times a day. To affacted area for two weeks. 15 g 2 10/12/2017 Active Blood Glucose Monitoring Suppl ([employer] VERIO) w/Device KITIndications:Type 2 diabetes mellitus with hemoglobin A1c goal of less than 7.0% (HCC) Use up to 4 times a day E11.9 1 Kit 0 10/17/2017 Active gabapentin (NEURONTIN) 300 MG Capsule One pill in am, one midday, two in pm, as directed, increase up to 2 capsules 3 times daily 180 Cap 5 11/16/2017 Active Glucose Blood (SlingboxTOUCH VERIO) STRP Use up to four times [...] less than 7.0% ([facility]) Inject 24 units at bed time 5 [...] of less than 7.0% ([facility]) 09/26/2013 Overview: ICD-10 update of inactive term [...] of 50.0 to 59.9 in adult ( [facility]) 06/12/2017 12/19/2017 Overview: Per Obesity protocol #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 7 02/13/2018 Atypical chest pain 08/19/2016 01/17/2017 Depression with anxiety 08/19/2016 02/14/20 18 Hepatic cirrhosis ([facility]) 08/19/2016 03/28/20 17 Polyuria 08/09/2016 01/17/2017 Urinary frequency 08/09/2016 01/17/2017 Generalized OA 06/14/2016 03/28/2017 Body mass index (BMI) of 45.0-49.9 in adult ([facility] ) 12/09/2015 01/17/2017 Overview: bmi= 48.04 12/09/15 Need for shingles vaccine 12/09/20152015 Bilateral shoulder pain 08/25/2015 06/07/20 16 Bilateral shoulder pain 07/16/2015 06/07/20 16 Cerebral palsy ([facility]) 04/23/2015 03/28/2017 Candidal vulvovaginitis 02/12/2015 06/07/20 16 Obesity, morbid (more than 1 00 lbs over ideal weight or BMI > 40) ([facility]) 02/09/2015 03/28/2017 THAD (obstructive sleep apnea) 02/09/2015 [...] weight or BMI > 40) ([facility]) 10/28/2013 01/17/2017 Overview: bmi= 53.93 10/28/13 Sleep [...] weight or BMI > 40) ([facility]) 05/25/2012 01/17/2017 Overview: BMI= 55.27 05/25/12 Impacted [...] pain 01/24/2012 01/17/2017 Genetic Sleep Disorder Research Other*[id number] 05/13/2011 04/07/2016 Obstructive sleep apnea 01/18/2011 12/27/19 [...] AM EDT Does patient need eval at [facility] for electric wheel chair * Telephone Encounter - Radha Elias THAD - 02/28/2018 9:19 AM EDT An order was requested for this patient. Name of Requestor: Patient Order Requested: electronic chair Diagnosis/Reason for Request: Does the order need to be faxed somewhere? If so, where?: Yes,white sugar supervisor Dulce Kev Fax Number, if applicable: [phone] Call Back Number: [phone] * Telephone Encounter - Carlee Hadley OSA - 02/27/2018 11:50 AM EDT Reason for patient's call: Pt calling in regarding an an electric chair, stating she needs information for her social media community manager. Attempted to help the pt, but had [...] Visit Gastroenterology [facility]sa [facility]out [facility] [address] [facility] [address] [phone] 03/12/2018 Pharmacy Pharmacy [facility] [address] [facility] [place] [place] [id number] 03/20/2018 Office Visit Dermatology Rachel Hill MD [address] [place], [place] [address] [address] [phone] 03/28/2018 Office Visit Family Medicine Rajwinder Carter DO [address] [place] [address] [phone] 03/30/2018 Office Visit Gastroenterology Angela Gonzalez, DO [address] [place] [facility] [place] [address] [phone] 04/25/2018 Office Visit Gastroenterology Angela Gonzalez, DO [address] [facility] [place] [address] [phone] 08/07/2018 Office Visit Sleep Disorders Lanette Fields CRNP [address] [facility] [place] [address] [phone] Nurse [facility] [place] [address] [phone] 12/19/2018 Office Visit Gynecology Obstetrics Irene Mujica CRNP [address] [facility] [place] [address] [phone] Health Maintenance Due Date Last Done Comments [...]
--- OUTSIDE RECORDS SUMMARY | 2023-05-10 23:26 | External Medical Summary | Summary of Care ---
Author Name Unknown Organization [place] [address] Phone Care Team Providers Care Pigment Grinder Name Role Phone Rajwinder Carter DO Primary Care Provider [phone] Reason for Visit * Reason Comments ADVICE Encounter Details Date Type Department Care Team Description 02/27/2018 Telephone [place] [address] [place] [address] Rajwinder Carter DO [address] [place] [address] [phone] ADVICE Allergies Active Allergy Reactions Severity Noted [...] Inhaler 1 06/29/2016 Active Vitamin D, Ergocalciferol, 92863 UNITS CapsuleIndications:Vi tamin D deficiency 1capsule every other week 8 Cap 6 09/27/2016 Active Blood Glucose Monitoring Suppl (NetaplanTOUCH VERIO) W/DEVICE KITIndications:Type 2 diabetes mellitus with [...] bedtime 30 Each 3 10/11/2017 Active nystatin 973632 UNIT/GM creamIndications:Cand idal vulvovaginitis Apply topically to affected area 2 times a day. To affacted area for two weeks. 15 g 2 10/12/2017 Active Blood Glucose Monitoring Suppl (NetaplanTOUCH VERIO) w/Device KITIndications:Type 2 diabetes mellitus with hemoglobin A1c goal of less than 7.0% (HCC) Use up to 4 times a day E11.9 1 Kit 0 10/17/2017 Active gabapentin (NEURONTIN) 300 MG Capsule One pill in am, one midday, two in pm, as directed, increase up to 2 capsules 3 times daily 180 Cap 5 11/16/2017 Active Glucose Blood (NetaplanTOUCH VERIO) STRP Use up to four times [...] with anxiety 08/19/2016 02/14/20 18 Hepatic cirrhosis ([facility]) 08/19/2016 03/28/20 17 Polyuria 08/09/2016 [...] pain 01/24/2012 01/17/2017 Genetic Sleep Disorder Research Other*[id number] 05/13/2011 04/07/2016 Obstructive sleep apnea 01/18/2011 12/27/19 [...] encounter Miscellaneous Notes * Telephone Encounter - Carlee Hadley, THAD - 02/27/2018 11:50 AM EDT Reason for patient's call: Pt calling in regarding an an electric chair, stating she needs information for her social work supervisor. Attempted to help the pt, but had [...] CRNP [address] [facility] [place] [address] [phone] 03/12/2018 Pharmacy Pharmacy [facility] [address] [place] [address] [phone] 03/20/2018 Office Visit Dermatology Rachel Hill MD [address] [place] [address] [phone] 03/28/2018 Office Visit Family Medicine Rajwinder Carter DO [address] [place] [address] [phone] 03/30/2018 Office Visit Gastroenterology Angela Gonzalez, DO [address] [place] [address] [phone] 04/25/2018 Office Visit Gastroenterology Angela Gonzalez, DO [address] [place] [address] [phone] 08/07/2018 Office Visit Sleep Disorders Lanette Fields CRNP [address] [facility] [place] [address] [phone] Nurse [facility] Sleep Disorders [address] [place] [address] [phone] 12/19/2018 Office Visit Gynecology Obstetrics Irene Mujica CRNP [address] [place] [address] [phone] Health Maintenance Due Date Last Done Comments [...]
--- OUTSIDE RECORDS SUMMARY | 2023-05-10 23:26 | External Medical Summary | Summary of Care ---
Author Name Unknown Organization [place] [address] Phone Care Team Providers Care Physics Professor Name Role Phone Rajwinder Carter DO Primary Care Provider [phone] Reason for Visit * Reason Comments ADVICE ORDER REQUEST Encounter Details Date Type Department Care Team Description 02/27/2018 Telephone [place] [address] [place] [address] Rajwinder Carter DO [address] [place] [address] [phone] ADVICE; ORDER REQUEST Allergies Active Allergy Reactions [...] Inhaler 1 06/29/2016 Active Vitamin D, Ergocalciferol, 57350 UNITS CapsuleIndications:Vi tamin D deficiency 1capsule every other week 8 Cap 6 09/27/2016 Active Blood Glucose Monitoring Suppl ([employer] VERIO) W/DEVICE KITIndications:Type 2 diabetes mellitus with hemoglobin A1c goal of less than 7.0% (HCC) Use as directed. Use daily to check blood sugars DX:E11.9 1 Kit 0 01/17/2017 Active Horticultural Asset ManagementTOUCH ULTRASOFT LANCETS MISCIndications:Type 2 diabetes mellitus with [...] bedtime 30 Each 3 10/11/2017 Active nystatin 997799 UNIT/GM creamIndications:Cand idal vulvovaginitis Apply topically to affected area 2 times a day. To affacted area for two weeks. 15 g 2 10/12/2017 Active Blood Glucose Monitoring Suppl ([employer] VERIO) w/Device KITIndications:Type 2 diabetes mellitus with hemoglobin A1c goal of less than 7.0% (HCC) Use up to 4 times a day E11.9 1 Kit 0 10/17/2017 Active gabapentin (NEURONTIN) 300 MG Capsule One pill in am, one midday, two in pm, as directed, increase up to 2 capsules 3 times daily 180 Cap 5 11/16/2017 Active Glucose Blood ([employer] Asset ManagementTOUCH VERIO) STRP Use up to four times [...] less than 7.0% ([facility]) Inject 24 units at [...] pain 01/24/2012 01/17/2017 Genetic Sleep Disorder Research Other*[id number] 05/13/2011 04/07/2016 Obstructive sleep apnea 01/18/2011 12/27/19 [...] Shaina unable to get in touch kevin ship unloader at that number- asked to have ship unloader call triage and have them get me on the phone * Telephone Encounter - Susan Rosales RN - 02/28/2018 2:27 PM EDT Called Shaina she said it is a lift chair she needs told her that most insurances will not pay for alift chair and I would call her ship unloader Dulce tucker gave me her number [phone] phone just beeps not shore if this is also a fax * Telephone Encounter - Rajwinder Carter DO - 02/28/2018 2:10 PM EDT Please let ship unloader know: 1. Electric wheelchairs are very difficult to get covered. She may need another [facility] but we can send an order if they would like. Where do they want it faxed? * Telephone Encounter - Susan Rosales RN - 02/28/2018 10:08 AM EDT Does patient need eval at [facility] for electric wheel chair * Telephone Encounter - Radha Elias, THAD - 02/28/2018 9:19 AM EDT An order was requested for this patient. Name of Requestor: Patient Order Requested: electronic chair Diagnosis/Reason for Request: Does the order need to be faxed somewhere? If so, where?: Yes,ship unloader Dulce Angulo Fax Number, if applicable: [phone] Call Back Number: [phone] * Telephone Encounter - Carlee Hadley, THAD - 02/27/2018 11:50 AM EDT Reason for patient's call: Pt calling in regarding an an electric chair, stating she needs information for her criminal justice social worker. Attempted to help the pt, [...] Gastroenterology Lyssa Stout CRNP [address] [facility] [address] [phone] 03/12/2018 Pharmacy Pharmacy [facility] [address] [place], [place] [address] 03/20/2018 Office Visit Dermatology Rachel Hill MD [address] [place] [address] [phone] 03/28/2018 Office Visit Family Medicine Rajwinder Carter, DO [address] [place], [place] [address] 03/30/2018 Office Visit Gastroenterology Angela Gonzalez, DO [address] [place] [address] [phone] 04/25/2018 Office Visit Gastroenterology Angela Gonzalez, DO [address] [place] [address] 08/07/2018 Office Visit Sleep Disorders [facility]ette Fields CRNP [address] [facility] [place] [address] [phone] Kentrell Nurse Sleep Disorders 132 [facility] [place] [address] [phone] 12/19/2018 Office Visit Gynecology Obstetrics Irene Mujica CRNP [address] [place] [address] [phone] Health Maintenance Due Date Last Done Comments [...]
--- OUTSIDE RECORDS SUMMARY | 2023-05-10 23:26 | External Medical Summary | Summary of Care ---
Author Name Unknown Organization [place] [address] Phone Care Team Providers Care Speedboat Operator Name Role Phone Rajwinder Carter DO Primary Care Provider [phone] Reason for Visit * Reason Comments ADVICE ORDER REQUEST Encounter Details Date Type Department Care Team Description 02/27/2018 Telephone [place] [address] [place] [address] Rajwinder Carter DO [address] [place] [address] [phone] ADVICE; ORDER REQUEST Allergies Active Allergy Reactions [...] Inhaler 1 06/29/2016 Active Vitamin D, Ergocalciferol, 19859 UNITS CapsuleIndications:Vi tamin D deficiency 1capsule every other week 8 Cap 6 09/27/2016 Active Blood Glucose Monitoring Suppl ([employer] VERIO) W/DEVICE KITIndications:Type 2 diabetes mellitus with hemoglobin A1c goal of less than 7.0% (HCC) Use as directed. Use daily to check blood sugars DX:E11.9 1 Kit 0 01/17/2017 Active StorwizeTOUCH ULTRASOFT LANCETS MISCIndications:Type 2 diabetes mellitus with [...] bedtime 30 Each 3 10/11/2017 Active nystatin 194074 UNIT/GM creamIndications:Cand idal vulvovaginitis Apply topically to affected area 2 times a day. To affacted area for two weeks. 15 g 2 10/12/2017 Active Blood Glucose Monitoring Suppl ([employer] VERIO) w/Device KITIndications:Type 2 diabetes mellitus with hemoglobin A1c goal of less than 7.0% (HCC) Use up to 4 times a day E11.9 1 Kit 0 10/17/2017 Active gabapentin (NEURONTIN) 300 MG Capsule One pill in am, one midday, two in pm, as directed, increase up to 2 capsules 3 times daily 180 Cap 5 11/16/2017 Active Glucose Blood (StorwizeTOUCH VERIO) STRP Use up to four times [...] pain 01/24/2012 01/17/2017 Genetic Sleep Disorder Research Other*[id number] 05/13/2011 04/07/2016 Obstructive sleep apnea 01/18/2011 12/27/19 [...] with Shaina unable to get in touch [facility] rewards consultant at that number- asked to have rewards consultant call triage and have them get me on the phone * Telephone Encounter - Susan Rosales RN - 02/28/2018 2:27 PM EDT Called Shaina she said it is a lift chair she needs told her that most insurances will not pay for alift chair and I would call her rewards consultant Dulce tucker gave me her number [phone] phone just beeps not [place] if this is also a fax * Telephone Encounter - Rajwinder Carter DO - 02/28/2018 2:10 PM EDT Please let rewards consultant know: 1. Electric wheelchairs are very difficult to get covered. She may need another evaluation at [facility] but we can send an order if they would like. Where do they want it faxed? * Telephone Encounter - Suasn Rosales RN - 02/28/2018 10:08 AM EDT Does patient need eval at [facility] for electric wheel chair * Telephone Encounter - Radha Elias, THAD - 02/28/2018 9:19 AM EDT An order was requested for this patient. Name of Requestor: Patient Order Requested: electronic chair Diagnosis/Reason for Request: Does the order need to be faxed somewhere? If so, where?: Yes,rewards consultant Dulce Angulo Fax Number, if applicable: [phone] Call Back Number: [phone] * Telephone Encounter - Carlee Hadley, THAD - 02/27/2018 11:50 AM EDT Reason for patient's call: Pt calling in regarding an an electric chair, stating she needs information for her healthcare social worker. Attempted to help the pt, [...] Gastroenterology Lyssa Stout CRNP [address] [place] [address] [phone] 03/12/2018 Pharmacy Pharmacy [facility] [address] [place] [address] [phone] 03/20/2018 Office Visit Dermatology Rachel Hill MD [address] [place] [address] [phone] 03/28/2018 Office Visit Family Medicine [facility]winder Carter DO [address] [facility] [id number] 03/30/2018 Office Visit Gastroenterology Angela Gonzalez, DO [address] [place] [address] 04/25/2018 Office Visit Gastroenterology Angela Gonzalez, DO [address] [place] [address] 08/07/2018 Office Visit Sleep Disorders Lanette iFelds CRNP [address] [place] [address] [phone] Nurse [facility] [address] [place] [address] [phone] 12/19/2018 Office Visit Gynecology Obstetrics Irene Mujica CRNP [address] [place] [address] [phone] Health Maintenance Due Date Last Done Comments [...]
--- OUTSIDE RECORDS SUMMARY | 2023-05-10 23:26 | External Medical Summary | Summary of Care ---
Author Name Unknown Organization [place] [address] Phone Care Team Providers Care Behavioral Geneticist Name Role Phone Rajwinder Carter DO Primary Care Provider [phone] Reason for Visit * Reason Comments ADVICE ORDER REQUEST Encounter Details Date Type Department Care Team Description 02/27/2018 Telephone [place] [address] [place] [address] Rajwinder Carter DO [address] [place] [address] [phone] ADVICE; ORDER REQUEST Allergies Active Allergy Reactions [...] Inhaler 1 06/29/2016 Active Vitamin D, Ergocalciferol, 77209 UNITS CapsuleIndications:Vi tamin D deficiency 1capsule every other week 8 Cap 6 09/27/2016 Active Blood Glucose Monitoring Suppl ([employer]im VERIO) W/DEVICE KITIndications:Type 2 diabetes mellitus with hemoglobin A1c goal of less than 7.0% (HCC) Use as directed. Use daily to check blood sugars DX:E11.9 1 Kit 0 01/17/2017 Active [employer] Digital TechnologyTOUCH ULTRASOFT LANCETS MISCIndications:Type 2 diabetes mellitus [...] bedtime 30 Each 3 10/11/2017 Active nystatin 991131 UNIT/GM creamIndications:Cand idal vulvovaginitis Apply topically to affected area 2 times a day. To affacted area for two weeks. 15 g 2 10/12/2017 Active Blood Glucose Monitoring Suppl (Comparisim VERIO) w/Device KITIndications:Type 2 diabetes mellitus with hemoglobin A1c goal of less than 7.0% (HCC) Use up to 4 times a day E11.9 1 Kit 0 10/17/2017 Active gabapentin (NEURONTIN) 300 MG Capsule One pill in am, one midday, two in pm, as directed, increase up to 2 capsules 3 times daily 180 Cap 5 11/16/2017 Active Glucose Blood ([employer] Century Digital TechnologyTOUCH VERIO) STRP Use up to four [...] less than 7.0% ([facility]) Inject 24 units at bed time 5 [...] of less than 7.0% ([facility]) 09/26/2013 Overview: ICD-10 update of inactive term [...] pain 01/24/2012 01/17/2017 Genetic Sleep Disorder Research Other*[id number] 05/13/2011 04/07/2016 Obstructive sleep apnea 01/18/2011 12/27/19 [...] to be faxed somewhere? If so, where?: Yes,[employer] Dulce Angulo Fax Number, if applicable: [phone] Call Back Number: [phone] * Telephone Encounter - Carlee Hadley, THAD - 02/27/2018 11:50 AM EDT Reason for patient's call: Pt calling in regarding an an electric chair, stating she needs information for her psychiatric social worker. Attempted to help the pt, [...] Lyssa Stout CRNP [address] [facility] [place] [address] [phone] 03/12/2018 Pharmacy Pharmacy [facility] [address] [facility] [address] [phone] 03/20/2018 Office Visit Dermatology Rachel Hill MD [address] [place] [address] [phone] 03/28/2018 Office Visit Family Medicine Rajwinder Carter DO [address] [facility] [address] [phone] 03/30/2018 Office Visit Gastroenterology Angela Gonzalez DO [address] [place] [facility] [place] [address] [phone] 04/25/2018 Office Visit Gastroenterology Angela Gonzalez, DO [address] [facility], [place] [address] [phone] 08/07/2018 Office Visit Sleep Disorders Lanette Fields CRNP [address] [place] [address] [phone] Nurse [facility] [address] [place] [address] [phone] 12/19/2018 Office Visit Gynecology Obstetrics rIene Mujica CRNP [address] [place] [address] [phone] Health Maintenance Due Date Last Done Comments [...]
--- OUTSIDE RECORDS SUMMARY | 2023-05-10 23:26 | External Medical Summary | Summary of Care ---
Author Name Unknown Organization [place] [address] Phone Care Team Providers Care Malariologist Name Role Phone Rajwinder Carter DO Primary Care Provider Reason for Visit * Reason Comments ADVICE ORDER REQUEST Encounter Details Date Type Department Care Team Description 02/27/2018 Telephone [place] [address] [place] [address] Rajwinder Carter DO [address] [place] [address] [phone] ADVICE; ORDER REQUEST Allergies Active Allergy Reactions [...] Inhaler 1 06/29/2016 Active Vitamin D, Ergocalciferol, 57198 UNITS CapsuleIndications:Vi tamin D deficiency 1capsule every other week 8 Cap 6 09/27/2016 Active Blood Glucose Monitoring Suppl (MyEdu VERIO) W/DEVICE KITIndications:Type 2 diabetes mellitus with hemoglobin A1c goal of less than 7.0% (HCC) Use as directed. Use daily to check blood sugars DX:E11.9 1 Kit 0 01/17/2017 Active garbsTOUCH ULTRASOFT LANCETS MISCIndications:Type 2 diabetes mellitus with [...] bedtime 30 Each 3 10/11/2017 Active nystatin 740070 UNIT/GM creamIndications:Cand idal vulvovaginitis Apply topically to affected area 2 times a day. To affacted area for two weeks. 15 g 2 10/12/2017 Active Blood Glucose Monitoring Suppl (MyEdu VERIO) w/Device KITIndications:Type 2 diabetes mellitus with hemoglobin A1c goal of less than 7.0% (HCC) Use up to 4 times a day E11.9 1 Kit 0 10/17/2017 Active gabapentin (NEURONTIN) 300 MG Capsule One pill in am, one midday, two in pm, as directed, increase up to 2 capsules 3 times daily 180 Cap 5 11/16/2017 Active Glucose Blood (garbsTOUCH VERIO) STRP Use up to four times [...] than 7.0% ([facility]) Inject 24 units at [...] than 7.0% ([facility]) 09/26/2013 Overview: ICD-10 update [...] 50.0 to 59.9 in adult ( [facility]) 06/12/2017 12/19/2017 Overview: Per Obesity protocol #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 7 02/13/2018 Atypical chest pain 08/19/2016 01/17/2017 Depression with anxiety 08/19/2016 02/14/20 18 Hepatic cirrhosis ([facility]) 08/19/2016 03/28/20 17 Polyuria 08/09/2016 01/17/2017 Urinary frequency 08/09/2016 01/17/2017 Generalized OA 06/14/2016 03/28/2017 Body mass index (BMI) of 45.0-49.9 in adult ([facility] ) 12/09/2015 01/17/2017 Overview: bmi= 48.04 12/09/15 Need for shingles vaccine 12/09/20152015 Bilateral shoulder pain 08/25/2015 06/07/20 16 Bilateral shoulder pain 07/16/2015 06/07/20 16 Cerebral palsy ([facility]) 04/23/2015 03/28/2017 Candidal vulvovaginitis 02/12/2015 06/07/20 16 Obesity, morbid (more than 1 00 lbs over ideal weight or BMI > 40) ([facility]) 02/09/2015 03/28/2017 THAD (obstructive [...] ideal weight or BMI > 40) ([facility]) 10/28/2013 01/17/2017 Overview: bmi= [...] ideal weight or BMI > 40) ([facility]) 05/25/2012 01/17/2017 Overview: BMI= [...] pain 01/24/2012 01/17/2017 Genetic Sleep Disorder Research Other*[id number] 05/13/2011 04/07/2016 Obstructive sleep apnea 01/18/2011 12/27/19 [...] to be faxed somewhere? If so, where?: Yes,[employer] Dulce Angulo Fax Number, if applicable: [phone] Call Back Number: [phone] * Telephone Encounter - Carlee Hadley, THAD - 02/27/2018 11:50 AM EDT Reason for patient's call: Pt calling in regarding an an electric chair, stating she needs information for her social sciences instructor. Attempted to help the pt, but had [...] Stout CRNP [address] [facility] [place] [address] [phone] 03/12/2018 Pharmacy Pharmacy [facility] [address] [facility] [address] [phone] 03/20/2018 Office Visit Dermatology Rachel Hill MD [address] [place] [address] [phone] 03/28/2018 Office Visit Family Medicine Rajwinder Carter DO [address] [facility] [address] [phone] 03/30/2018 Office Visit Gastroenterology Angela Gonzalez DO [address] [place] [facility] [place] [address] [phone] 04/25/2018 Office Visit Gastroenterology Angela Gonzalez, DO [address] [facility], [place] [address] [phone] 08/07/2018 Office Visit Sleep Disorders Lanette Fields CRNP [address] [place] [address] [phone] Nurse [facility] [address] [place] [address] [phone] 12/19/2018 Office Visit Gynecology Obstetrics Irene Mujica CRNP [address] [place] [address] [phone] Health Maintenance Due Date Last Done Comments [...]
--- OUTSIDE RECORDS SUMMARY | 2023-05-10 23:26 | External Medical Summary | Summary of Care ---
Author Name Unknown Organization [place] [address] Phone Care Team Providers Care [place] Name Role Phone Rajwinder Carter DO Primary Care Provider [phone] Reason for Visit * Reason Comments Durable Medical Equipment Encounter Details Date Type Department Care Team Description 02/23/2018 Telephone [place] [address] [place] [address] Rajwinder Carter DO [address] [place] [address] [phone] Durable Medical Equipment Allergies Active Allergy Reactions Severity Noted Date [...] Inhaler 1 06/29/2016 Active Vitamin D, Ergocalciferol, 73038 UNITS CapsuleIndications: Vitamin D deficiency 1capsule every other week 8 Cap 6 09/27/2016 Active Blood Glucose Monitoring Suppl (FitsistantTOUCH VERIO) W/DEVICE KITIndications:Type 2 diabetes mellitus with [...] bedtime 30 Each 3 10/11/2017 Active nystatin 265828 UNIT/GM creamIndications:Ca ndidal vulvovaginitis Apply topically to affected area 2 times a day. To affacted area for two weeks. 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 7 02/13/2018 Atypical chest pain 08/19/2016 01/17/2017 Depression with anxiety 08/19/2016 02/14/20 18 Hepatic cirrhosis ([facility]) 08/19/2016 03/28/20 17 Polyuria 08/09/2016 01/17/2017 Urinary frequency 08/09/2016 01/17/2017 Generalized OA 06/14/2016 03/28/2017 Body mass index (BMI) of 45.0-49.9 in adult ([facility] ) 12/09/2015 01/17/2017 Overview: bmi= 48.04 12/09/15 Need for shingles vaccine 12/09/20152015 Bilateral shoulder pain 08/25/2015 06/07/20 16 Bilateral shoulder pain 07/16/2015 06/07/20 16 Cerebral palsy ([facility]) 04/23/2015 03/28/2017 Candidal vulvovaginitis 02/12/2015 06/07/20 16 Obesity, morbid (more than 1 00 lbs over ideal weight or BMI > 40) ([facility]) 02/09/2015 03/28/2017 THAD (obstructive sleep [...] > 40) ([facility]) 10/28/2013 01/17/2017 Overview: bmi= 53.93 [...] > 40) ([facility]) 05/25/2012 01/17/2017 Overview: BMI= 55.27 [...] pain 01/24/2012 01/17/2017 Genetic Sleep Disorder Research Other*[id number] 05/13/2011 04/07/2016 Obstructive sleep apnea 01/18/2011 12/27/19 [...] > 40) ([facility]) 12/08/2009 07/02/2014 Overview: Per Obesity [...] Miscellaneous Notes * Telephone Encounter - Rosio Ryan, THAD - 02/27/2018 10:23 AM EDT Pt called asking for a script for a lift chair and to have the script faxed to Dulce Angulo at [facility]. Pt did not know the phone number or fax number. Advised pt she would need to atleast give us the phone number. Pt will call back with the phone number. * Telephone Encounter - Susan Rosales RN - 02/23/2018 1:51 PM EDT called Imelda at [facility]. The physician that ordered the bedside table has retired and we have no clinic notes for this patient to support why the need she will be seeing her new physician in March at the [facility] office * Telephone Encounter - Saloni Elias CMA - 02/23/2018 1:36 PM EDT This was ordered by Dr Matute. * Telephone Encounter - Savi Bernal, manager beauty - 02/23/2018 1:04 PM EDT Jesus Andrade Lázaro is calling because they need chart notes as to why patient needs a bedside table. Please fax to [phone]. Thanks, Savi Bernal Crime Laboratory Analyst Pharmacy Refill Call Center 02/23/2018,1:06 PM in this encounter Plan of Treatment Upcoming Encounters Date Type Specialty Care Team Description 03/01/2018 Office Visit [facility]enterology [facility] [address] [facility] [address] [phone] 03/12/2018 Pharmacy Pharmacy [facility] [address] [address] [phone] 03/20/2018 Office Visit Dermatology Rachel Hill MD [address] [place], [place] [address] [address] [phone] 03/28/2018 Office Visit Family Medicine Rajwinder Carter, DO [address] [place] [address] [phone] 03/30/2018 Office Visit Gastroenterology Angela Gonzalez, DO [address] [facility], [place] [address] 04/25/2018 Office Visit Gastroenterology Angela Gonzalez, DO [address] [facility] [place] [address] [phone] 08/07/2018 Office Visit Sleep Disorders Lanette Fields CRNP [address] [place] [address] [phone] Nurse [facility] [address] [place] [address] [phone] 12/19/2018 Office Visit Gynecology Obstetrics Irene Mujica CRNP [address] [place] [address] [phone] Health Maintenance Due Date Last Done Comments [...]
--- OUTSIDE RECORDS SUMMARY | 2023-05-10 23:26 | External Medical Summary | Summary of Care ---
Author Name Unknown Organization [place] [address] Phone Care Team Providers Care Head Of Visual Merchandising Name Role Phone Rajwinder Carter DO Primary Care Provider [phone] Reason for Visit * Reason Comments ADVICE ORDER REQUEST Encounter Details Date Type Department Care Team Description 02/27/2018 Telephone [place] [address] [place] [address] Rajwinder Carter DO [address] [place] [address] [phone] ADVICE; ORDER REQUEST Allergies Active Allergy Reactions [...] Inhaler 1 06/29/2016 Active Vitamin D, Ergocalciferol, 36983 UNITS CapsuleIndications:Vi tamin D deficiency 1capsule every other week 8 Cap 6 09/27/2016 Active Blood Glucose Monitoring Suppl ([employer] VERIO) W/DEVICE KITIndications:Type 2 diabetes mellitus with hemoglobin A1c goal of less than 7.0% (HCC) Use as directed. Use daily to check blood sugars DX:E11.9 1 Kit 0 01/17/2017 Active [employer]TOUCH ULTRASOFT LANCETS MISCIndications:Type 2 diabetes mellitus with [...] bedtime 30 Each 3 10/11/2017 Active nystatin 117070 UNIT/GM creamIndications:Cand idal vulvovaginitis Apply topically to affected area 2 times a day. To affacted area for two weeks. 15 g 2 10/12/2017 Active Blood Glucose Monitoring Suppl ([employer] VERIO) w/Device KITIndications:Type 2 diabetes mellitus with hemoglobin A1c goal of less than 7.0% (HCC) Use up to 4 times a day E11.9 1 Kit 0 10/17/2017 Active gabapentin (NEURONTIN) 300 MG Capsule One pill in am, one midday, two in pm, as directed, increase up to 2 capsules 3 times daily 180 Cap 5 11/16/2017 Active Glucose Blood ([employer]TOUCH VERIO) STRP Use up to four [...] goal of less than 7.0% ([facility]) Inject 24 units at bed time 5 [...] goal of less than 7.0% ([facility]) 09/26/2013 Overview: ICD-10 update of inactive term [...] of 50.0 to 59.9 in adult ( [facility]) 06/12/2017 12/19/2017 Overview: Per Obesity protocol #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 7 02/13/2018 Atypical chest pain 08/19/2016 01/17/2017 Depression with anxiety 08/19/2016 02/14/20 18 Hepatic cirrhosis ([facility]) 08/19/2016 03/28/20 17 Polyuria 08/09/2016 01/17/2017 Urinary frequency 08/09/2016 01/17/2017 Generalized OA 06/14/2016 03/28/2017 Body mass index (BMI) of 45.0-49.9 in adult ([facility] ) 12/09/2015 01/17/2017 Overview: bmi= 48.04 12/09/15 Need for shingles vaccine 12/09/20152015 Bilateral shoulder pain 08/25/2015 06/07/20 16 Bilateral shoulder pain 07/16/2015 06/07/20 16 Cerebral palsy ([facility]) 04/23/2015 03/28/2017 Candidal vulvovaginitis 02/12/2015 06/07/20 16 Obesity, morbid (more than 1 00 lbs over ideal weight or BMI > 40) ([facility]) 02/09/2015 03/28/2017 THAD (obstructive sleep apnea) 02/09/2015 [...] ideal weight or BMI > 40) ([facility]) 10/28/2013 01/17/2017 Overview: bmi= 53.93 10/28/13 Sleep [...] ideal weight or BMI > 40) ([facility]) 05/25/2012 01/17/2017 Overview: BMI= 55.27 05/25/12 Impacted [...] pain 01/24/2012 01/17/2017 Genetic Sleep Disorder Research Other*[id number] 05/13/2011 04/07/2016 Obstructive sleep apnea 01/18/2011 12/27/19 [...] alift chair and I would call her web merchandiser Dulce santosstiven gave me her number [phone] phone just beeps not shore if this is also a fax * Telephone Encounter - Rajwinder Carter DO - 02/28/2018 2:10 PM EDT Please let web merchandiser know: 1. Electric wheelchairs are very difficult to get covered. She may need another evaluation at [facility] but we can send an order if they would like. Where do they want it faxed? * Telephone Encounter - Susan Rosales RN - 02/28/2018 10:08 AM EDT Does patient need eval at [facility] for electric wheel chair * Telephone Encounter - Radha Elias, THAD - 02/28/2018 9:19 AM EDT An order was requested for this patient. Name of Requestor: Patient Order Requested: electronic chair Diagnosis/Reason for Request: Does the order need to be faxed somewhere? If so, where?: Yes,web merchandiser Dulce Angulo Fax Number, if applicable: [phone] Call Back Number: [phone] * Telephone Encounter - Carlee Hadley, THAD - 02/27/2018 11:50 AM EDT Reason for patient's call: Pt calling in regarding an an electric chair, stating she needs information for her social organization professor. Attempted to help the pt, but had [...] Gastroenterology Lyssa Stout [facility] [address] [facility] [place] [address] [phone] 03/12/2018 Pharmacy Pharmacy [facility] [address] [place] [address] [phone] 03/20/2018 Office Visit Dermatology Rachel Hill MD [address] [place] [address], [place] [address] [phone] 03/28/2018 Office Visit Family Medicine Rajwinder Carter, DO [address] [place] [address] [phone] 03/30/2018 Office Visit Gastroenterology Angela Gonzalez, DO [address] [place] [address] [phone] 04/25/2018 Office Visit Gastroenterology Angela Gonzalez, DO [address] [place] [address] [phone] 08/07/2018 Office Visit Sleep Disorders [facility] Fields [facility] [address] [facility] [place] [address] [phone] Nurse [facility] [address] [facility] [place] [address] [phone] 12/19/2018 Office Visit Gynecology Obstetrics Irene Mujica CRNP [address] [facility] [place] [address] [phone] Health Maintenance Due Date Last Done Comments [...]
--- OUTSIDE RECORDS SUMMARY | 2023-05-10 23:27 | External Medical Summary | Summary of Care ---
Author Name Unknown Organization [place] [address] Phone Care Team Providers Care Patient Monitor Name Role Phone Rajwinder Carter DO Primary Care Provider [phone] Reason for Visit * Reason Comments MEDICATION QUESTION Encounter Details Date Type Department Care Team Description 02/16/2018 Telephone [place] [address] [place] [address] Rajwinder Carter DO [address] [place] [address] [phone] MEDICATION QUESTION Allergies Active Allergy Reactions Severity [...] Inhaler 1 06/29/2016 Active Vitamin D, Ergocalciferol, 97657 UNITS CapsuleIndications:Vi tamin D deficiency 1capsule every other week 8 Cap 6 09/27/2016 Active Blood Glucose Monitoring Suppl (DashLuxeTOUCH VERIO) W/DEVICE KITIndications:Type 2 diabetes mellitus with [...] (BUSPAR) 10 MG Tablet 0 02/14/2017 Active escitalopram (LEXAPRO) 10 MG Tablet Take 15 Tabs by mouth daily. 0 07/14/2017 Active furosemide (LASIX) 20 MG TabletIndications:Erickson ma,Stasis [...] at bedtime. 30 Tab 5 10/09/2017 Active levothyroxine (LEVOXYL) 88 MCG Tablet Take 1 Tab by mouth daily. (at least 30 min prior to breakfast or other meds) 30 Tab 5 10/11/2017 Active fluticasone (FLONASE) 50 MCG/ACT nasal sprayIndications:Sinu s congestion Administer 2 Sprays into each nostril daily. 1 Inhaler 5 10/11/2017 Active Insulin Pen Needle 31G X 6 MM MISCIndications:Type 2 diabetes mellitus with hemoglobin A1c goal of less than 7.0% (HCC) Use with Lantus Solostar at bedtime 30 Each 3 10/11/2017 Active nystatin 638270 UNIT/GM creamIndications:Cand idal vulvovaginitis Apply topically to affected area 2 times a day. To affacted area for two weeks. 15 g 2 10/12/2017 Active Blood Glucose Monitoring Suppl ([employer]) w/Device KITIndications:Type 2 diabetes mellitus with hemoglobin A1c goal of less than 7.0% (HCC) Use up to 4 times a day E11.9 1 Kit 0 10/17/2017 Active gabapentin (NEURONTIN) 300 MG Capsule One pill in am, one midday, two in pm, as directed, increase up to 2 capsules 3 times daily 180 Cap 5 11/16/2017 Active Glucose Blood (DashLuxeTOUCH VERBrainCells) STRP Use up to four times a [...] potassium chloride ER 10 MEQ TBCRIndications:Hypok alemia Take 1 Tab by mouth 2 times a day. With food. 60 Tab 5 01/10/2018 Active traZODone (DESYREL) 50 MG TabletIndications:Sle ep disturbances Take 1 Tab by mouth at bedtime. 30 Tab 5 01/10/2018 Active levothyroxine (LEVOXYL) 100 MCG Tablet Take 1 Tab by mouth daily. (at least 30 min prior to breakfast or other meds) 30 Tab 5 01/10/2018 Active insulin glargine (LANTUS SOLOSTAR) 100 UNIT/ML SOPNIndications:Type 2 diabetes mellitus with hemoglobin A1c goal of less than 7.0% ([facility]) Inject 24 units at bed time [...] for Pain. 60 Tab 0 02/13/2018 Active cyclobenzaprine (FLEXERIL) 10 MG Tablet Take 1 Tab by mouth at bedtime. 30 Tab 0 02/15/2018 Active as of this encounter Active Problems [...] palsy ([facility]) 04/23/2015 03/28/2017 Candidal vulvovaginitis 02/12/2015 06/07/20 [...] pain 01/24/2012 01/17/2017 Genetic Sleep Disorder Research Other*[id number] 05/13/2011 04/07/2016 Obstructive sleep apnea 01/18/2011 12/27/19 [...] 40) ([facility]) 12/08/2009 07/02/2014 Overview: Per Obesity Taxonomy ICD-10 [...] Miscellaneous Notes * Telephone Encounter - Melissa Padilla OSA - 02/16/2018 11:26 AM EDT Pt calling in refill for abx, cephalexin, not realizing Rx was antibiotic. Advised must have been prescribed previously for some type of infection. Pt and pt's home health aide also asked regarding levothyroxine and advised 5 refills should be on file at pharmacy for that med as well as cyclobenzaprine sent yesterday. Thank you, Melissa Padilla Animal Behaviourist Pharmacy Refill Call Center 02/16/2018, 11:26 AM in this encounter Plan of Treatment Upcoming Encounters Date Type Specialty Care Team Description 02/21/2018 Office Visit Gastroenterology Essence Chase PA-C [address] [place] [address] [phone] 02/23/2018 Office Visit Sleep Disorders Lanette Fields CRNP [address] [facility] [place] [address] [phone] 03/01/2018 Office [facility] [place] [address] [phone] 03/12/2018 Pharmacy Pharmacy [facility] [address] [place] [facility] [place] [address] [phone] 03/20/2018 Office Visit Dermatology Rachel Hill MD [address] [place] [address] [phone] 03/28/2018 Office Visit Family Medicine [facility]winder Carter DO [address] [facility] [address] [phone] 08/07/2018 Office Visit Sleep Disorders Lanette Fields CRNP [address] [place] [address] [phone] [facility] [address] [place] [address] [phone] 12/19/2018 Office Visit Gynecology Obstetrics Irene Mujica CRNP [address] [place] [address] [phone] Health Maintenance Due Date Last Done Comments [...]
--- OUTSIDE RECORDS SUMMARY | 2023-05-10 23:27 | External Medical Summary | Summary of Care ---
Author Name Unknown Organization [place] [address] Phone Care Team Providers Care Planting Material Unloader Name Role Phone Rajwinder Carter Primary Care Provider Encounter Details Date Type Department Care Team Description 02/26/2018 Scan Encounter Unspecified Department <No scans attached> [...] Inhaler 1 06/29/2016 Active Vitamin D, Ergocalciferol, 66382 UNITS CapsuleIndications:Vi tamin D deficiency 1capsule every other week 8 Cap 6 09/27/2016 Active Blood Glucose Monitoring Suppl (SocrativeTOUCH VERIO) W/DEVICE KITIndications:Type 2 diabetes mellitus with [...] bedtime 30 Each 3 10/11/2017 Active nystatin 622713 UNIT/GM creamIndications:Cand idal vulvovaginitis Apply topically to affected area 2 times a day. To affacted area for two weeks. 15 g 2 10/12/2017 Active Blood Glucose Monitoring Suppl ([employer] Hearing [employer]IO) w/Device KITIndications:Type 2 diabetes mellitus with hemoglobin A1c goal of less than 7.0% (HCC) Use up to 4 times a day E11.9 1 Kit 0 10/17/2017 Active gabapentin (NEURONTIN) 300 MG Capsule One pill in am, one midday, two in pm, as directed, increase up to 2 capsules 3 times daily 180 Cap 5 11/16/2017 Active Glucose Blood (SocrativeTOUCH VERIO) STRP Use up to four times [...] pain 01/24/2012 01/17/2017 Genetic Sleep Disorder Research Other*[id number] 05/13/2011 04/07/2016 Obstructive sleep apnea 01/18/2011 12/27/19 [...] Gastroenterology Lyssa Stout CRNP [address] [place] [address] [phone] 03/12/2018 Pharmacy Pharm[facility] [address] [facility] [address] [phone] 03/20/2018 Office Visit Dermatology Rachel Hill MD [address] [place] [address], [place] [address] [phone] 03/28/2018 Office Visit Family Medicine [facility]inder [facility] DO [address] [facility] [address] [phone] 03/30/2018 Office Visit Gastroenterology Angela Gonzalez, DO [address] [place], [place] [address] 04/25/2018 Office Visit Gastroenterology Angela Gonzalez, DO [address] [place] [address] [phone] 08/07/2018 Office Visit Sleep Disorders Lanette Fields CRNP [address] [place] [address] [phone] [facility] [address] [place] [address] [phone] 12/19/2018 Office Visit Gynecology Obstetrics Irene Mujica [...]
--- OUTSIDE RECORDS SUMMARY | 2023-05-10 23:27 | External Medical Summary | Summary of Care ---
Author Name Unknown Organization [place] [address] Phone Care Team Providers Care Water Server Name Role Phone ArabellaRajwinder thacker Primary Care Provider Reason for Visit * Reason Comments Weight Management Medical Management Encounter Details Date Type Department Care Team Description 02/21/2018 Office Visit Nutrition & Weight Management, [facility] [address] [place] [address] Essence Chase PA-C [address] [place] [address] [phone] Type 2 diabetes mellitus with hemoglobin A1c goal of less than 7.0% ([facility] [place] [facility])*;NG (nonalcoholic steatohepatitis);THAD on CPAP;Acquired hypothyroidism;Dyslip idemia, goal LDL below 70;HTN, goal below 140/90 Allergies Active Allergy Reactions [...] Inhaler 1 06/29/2016 Active Vitamin D, Ergocalciferol, 44548 UNITS CapsuleIndications:Vi tamin D deficiency 1capsule every other week 8 Cap 6 09/27/2016 Active Blood Glucose Monitoring Suppl ([employer] 2TOUCH VERIO) W/DEVICE KITIndications:Type 2 diabetes mellitus with [...] bedtime 30 Each 3 10/11/2017 Active nystatin 689850 UNIT/GM creamIndications:Cand idal vulvovaginitis Apply topically to affected area 2 times a day. To affacted area for two weeks. 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 7 02/13/2018 Atypical chest pain 08/19/2016 01/17/2017 Depression with anxiety 08/19/2016 02/14/20 18 Hepatic cirrhosis ([facility]) 08/19/2016 03/28/20 17 Polyuria 08/09/2016 01/17/2017 Urinary frequency 08/09/2016 01/17/2017 Generalized OA 06/14/2016 03/28/2017 Body mass index (BMI) of 45.0-49.9 in adult ([facility] ) 12/09/2015 01/17/2017 Overview: bmi= 48.04 12/09/15 Need for shingles vaccine 12/09/20152015 Bilateral shoulder pain 08/25/2015 06/07/20 16 Bilateral shoulder pain 07/16/2015 06/07/20 16 Cerebral palsy ([facility]) 04/23/2015 03/28/2017 Candidal vulvovaginitis 02/12/2015 06/07/20 16 Obesity, morbid (more than 1 00 lbs over ideal weight or BMI > 40) ([facility]) 02/09/2015 03/28/2017 THAD (obstructive sleep [...] weight or BMI > 40) ([facility]) 10/28/2013 01/17/2017 Overview: bmi= 53.93 [...] weight or BMI > 40) ([facility]) 05/25/2012 01/17/2017 Overview: BMI= 55.27 [...] pain 01/24/2012 01/17/2017 Genetic Sleep Disorder Research Other*[id number] 05/13/2011 04/07/2016 Obstructive sleep apnea 01/18/2011 12/27/19 [...] weight or BMI > 40) ([facility]) 12/08/2009 07/02/2014 Overview: Per Obesity [...] Vital Sign Reading Time Taken Blood Pressure 118/76 02/21/2018 10:52 AM EDT Pulse 72 02/21/2018 10:52 AM EDT Temperature - - Respiratory Rate - - Oxygen Saturation - - Inhaled Oxygen Concentration - - Weight 118.8 kg (262 lb) 02/21/2018 10: 52 AM EDT Height - - Body Mass Index 52.92 02/21/2018 10:52 AM EDT in this encounter Progress Notes * Essence Chase PA-C - 02/21/2018 10:48 AM EDT Formatting of this note may be different from the original. Comprehensive Weight Management Clinic Note Shaina Bustos presents in follow up to the comprehensive weight management clinic. The patient is a 62 year old female with PMH significant for anxiety disorder, degenerative joint disease, diabetes mellitus, hypercholesterolemia, morbid obesity, nonsuicidal depression, hypothyroidism, esophageal reflux disease, steathohepatitis, cerebral palsy whom we have been following since 2012. Her weight atthat time was 276 pounds. Wt Readings from Last 6 Encounters: 02/21/18 118.8 kg (262 lb) 12/26/17 115.1 kg (253 lb 12.8 oz) 12/19/17 117.5 kg (259 lb) 12/08/17 115.7 kg (255 lb) 11/28/17 115.7 kg (255 lb) 11/20/17 118.4 kg (261 lb) Patient is receiving ongoing education regarding dietary and physical modifications for weight loss. Patient is interested in the following treatment options for obesity: medical management. The patient was last seen in this clinic 11/26. Since that time the patient's weight has increased 1 pounds. The patient's total weight change is -14 pounds. Review of Systems: The patient denies any chest pain, palpitations. Since her last visit there have been no problems with Anxiety / nervousness, Binge Eating, Depression, Diarrhea and Hair loss. DM: Blood sugar is running around 150-190. Occasionally low 200's. Follows with [facility]. Depression/Anxiety: Well controlled on current medications. Dyslipidemia: Stable on current medication. Hypothyroidism: She is working with her PCP to adjust thyroid medications. Edema: Stable per patient. GERD: Stable with prilosec daily. NG: Following with GI. Current Medications: Current Outpatient Prescriptions Medication Sig Dispense Refill albuterol (PROVENTIL HFA) 108 (90 BASE) MCG/ACT inhaler Inhale 2 Puffs by mouth 4 times a day. 1 Inhaler 1 albuterol-ipratropium (DUONEB) 2.5-0.5 MG/3ML nebulizer solution Use 1 vial in nebulizer 180 mL0 atenolol (TENORMIN) 25 MG Tablet Take 1 Tab by mouth at bedtime. 30 Tab 5 atorvaSTATin (LIPITOR) 40 MG Tablet Take 1 Tab by mouth at bedtime. 90 Tab 1 Azelastine HCl (ASTELIN) 0.1 % nasal spray Administer 2 Sprays into each nostril 2 times a day.1 Bottle 11 BD PEN NEEDLE MINI U/F 31G X 5 MM Use with Basaglar at bedtime. 30 Each 11 Blood Glucose Monitoring Suppl (Erly) W/DEVICE KIT Use as directed. Use daily to check blood sugars DX:E11.9 1 Kit 0 Blood Glucose Monitoring Suppl (Erly) w/Device KIT Use up to 4 times a day E11.9 1 Kit 0 busPIRone (BUSPAR) 10 MG Tablet 0 CENTRUM SILVER PO TABS 1 tab daily 1 Tab 0 cyclobenzaprine (FLEXERIL) 10 MG Tablet Take 1 Tab by mouth at bedtime. 30 Tab 0 Dulaglutide (TRULICITY) 0.75 MG/0.5ML SOPN Inject 1 syringeful once weekly 4 Pre-filled Pen Syringe Dosing Unit 5 escitalopram (LEXAPRO) 10 MG Tablet Take 1.5 Tabs by mouth daily. 45 Tab 5 fexofenadine (BERNARDA) 180 MG Tablet One pill by mouth once a day as needed for allergies 30 Tab 11 fluticasone (FLONASE) 50 MCG/ACT nasal spray Administer 2 Sprays into each nostril daily. 1 Inhaler 5 furosemide (LASIX) 20 MG Tablet One pill by mouth once a day, as needed for edema 30 Tab 5 gabapentin (NEURONTIN) 300 MG Capsule One pill in am, one midday, two in pm, as directed, increase up to 2 capsules 3 times daily 180 Cap 5 Glucosamine-Chondroitin (GLUCOSAMINE CHONDR COMPLEX) 500-400 MG Capsule Take 1 Cap by mouth 3 times a day. 1 Cap 0 Glucose Blood (ONETOUCH VERIO) STRP Use up to four times a day as directed.DX:E11.9 400 Strip 3 Hydrocodone-Acetaminophen (NORCO) 10-325 MG per tablet Take 1 Tab by mouth 2 times a day as needed for Pain. 60 Tab 0 insulin glargine (LANTUS SOLOSTAR) 100 UNIT/ML SOPN Inject 24 units at bed time 5 Pre-filled Pen Syringe Dosing Unit 3 Insulin Pen Needle 31G X 6 MM MISC Use with Lantus Solostar at bedtime 30 Each 3 levothyroxine (LEVOXYL) 100 MCG Tablet Take 1 Tab by mouth daily. (at least 30 min prior to breakfast or other meds) 30 Tab 5 MetFORMIN (GLUCOPHAGE) 1000 MG Tablet Take 1 Tab by mouth 2 times a day. With food. 60 Tab 5 NEBULIZER KORTNEY as directed 1 0 OCEAN NASAL SPRAY 0.65 % NA SOLN Two sprays in each nostril as needed for nasal dryness or congestion 1 Bottle 5 omeprazole (PRILOSEC) 20 MG CPDR Take 1 Cap by mouth daily. 90 Cap 1 ONETOUCH ULTRASOFT LANCETS MISC Use as directed 4 times a day as needed (Use daily to check blood sugars DX:E11.9). Use up to four times a day as directed 1 Box Dosing Unit 11 potassium chloride ER 10 MEQ TBCR With food. Pt reports only taking once dailly. 60 Tab 5 traZODone (DESYREL) 50 MG Tablet Take 1 Tab by mouth at bedtime. 30 Tab 5 Vitamin D, Ergocalciferol, 22982 UNITS Capsule 1capsule every other week 8 Cap 6 ASPIRIN 81 MG PO TABS one tab by mouth daily 34 Tab 5 BETAMETHASONE VALERATE 0.1 % EX CREA apply to affected area twice daily, as needed 30 g 1 levothyroxine (LEVOXYL) 88 MCG Tablet Take 1 Tab by mouth daily. (at least 30 min prior to breakfast or other meds) 30 Tab 5 nystatin (NYSTOP) powder Apply topically to affected area 3 times a day. Sprinkle over affected area. 1 Bottle 1 nystatin 338259 UNIT/GM cream Apply topically to affected area 2 times a day. To affacted area for two weeks. 15 g 2 Water intake: 1-2 bottles per day, Prescribed diet: 8308-8821 Low Fat CHO Modified Diet Current diet: --> Breakfast--2 eggs, 2 slices wehat toast, grape juice; glucerna; 2 ham and cheese croissants;scrambled eggs; cheerios with 2% milk; bagel with cream cheese --> Snack--chips or SF cookies --> Lunch-- chicken cheesesteak with almeida; meatloaf, baked potato, bread; chicken salad on crackers; roast beef sandwich; egg rolls --> Snack--none --> Dinner--jelly sandwich; egg rolls; shrimp scampi; pizza; baked beans and hot dogs; steak andpotatoes --> Snack-- ice cream --> Drinks-- water, diet tea, V8 juice on occasion, glucerna, milk Food logs: Yes Type of exercise: limited due to immobility from CP Exercise: Times per week: -- Minutes per day: -- Weight loss Pharmacotherapy: no BP 118/76 | Pulse 72 | Wt 262 lbs (118.842kg) | BMI 52.92 kg/m | BSA 2.22 m Per nursing patient was unable to stand on scale today, but last time she weighed herself it was 262 pounds. PHYSICAL EXAMINATION: General: Patient is in no acute distress, well groomed, well developed, well nourished. HEENT is unremarkable. NC/AT, sclera nonicteric, MMM. Neck is supple with full range of motion. Heart has normal S-1 and S-2. There is no murmurs or ectopy. RRR. Lungs are clear to auscultation. Normal wob, no wheezing/rhonchi/rales. Abdomen is soft, obese, non-distended, and non tender with normoactive bowel sounds. There are no hernias or masses appreciated. No rebound or guarding. Extremities are with edema, pitting 2. Skin is without obvious rash. Psych is [...] a weekly basis. Goals for next month: (Written down and reviewed with patient's aid Hector) 1. Minimize/Avoid simple sugar foods - I.e. White breads, pasta, bagels, crackers, etc. 2. Discussed plate method with patient for portion control 3. Continue to avoid soda. 4. Increase fresh fruits and veggies. DIABETES: Continue current medications. Follow-up with PCP [...] her next clinic visit. Essence Chase PA-C in this encounter Nursing Notes * Alirio Corcoran LPN - 02/21/2018 10:52 AM EDT Formatting of this note may be different from the original. Pt verified identity by last name and date. Chief Complaint Patient presents with Weight Management Medical Management in this encounter Plan of Treatment Upcoming Encounters Date Type Specialty Care Team Description 02/23/2018 Office Visit Sleep Disorders Lanette Fields CRNP [address] [place] [address] [phone] 03/01/2018 Office Visit Gastroenterology Lyssa Stout CRNP [address] [place] [address] [phone] 03/12/[address] [facility] [address] [place] [facility] [place] [address] [phone] 03/20/2018 Office Visit Dermatology Rachel Hill MD [address] [place] [address], [place] [address] [phone] 03/28/2018 Office Visit Family Medicine Rajwinder Carter, DO [address] [place] [address] [phone] 03/30/2018 Office Visit Gastroenterology Angela Gonzalez, DO [address] [place] [address] [phone] 04/25/2018 Office Visit Gastroenterology Angela Gonzalez, DO [address] [place] [address] [phone] 08/07/2018 Office Visit [facility] [address] [facility] [address] [phone] [facility] [address] [facility] [place] [address] [phone] 12/19/2018 Office Visit Gynecology Obstetrics [facility]ica [facility] [address] [facility] [address] [phone] Health Maintenance Due Date Last Done Comments [...] of less than 7.0% (HCC) - Primary NG (nonalcoholic steatohep atitis) Other chronic nonalcoholic liver disease THAD on CPAP Obstructive sleep apnea (adult) (pediatric) Acquired hypothyroidism Unspecified hypothyroidism Dyslipidemia, goal LDL below 70 Other and unspecified hyperlipidemia HTN, goal below 140/90 Unspecified essential hypertension in this encounter"
--- OUTSIDE RECORDS SUMMARY | 2023-05-10 23:27 | External Medical Summary | Summary of Care ---
Author Name Unknown Organization [place] [address] Phone Care Team Providers Care Logging Specialist Name Role Phone Rajwinder Carter DO Primary Care Provider [phone] Reason for Visit * Reason Comments Durable Medical Equipment Encounter Details Date Type Department Care Team Description 02/23/2018 Telephone [place] [address] [place] [address] Rajwinder Carter DO [address] [place] [address] [phone] Durable Medical Equipment Allergies Active Allergy Reactions [...] Inhaler 1 06/29/2016 Active Vitamin D, Ergocalciferol, 82655 UNITS CapsuleIndications:Vi tamin D deficiency 1capsule every other week 8 Cap 6 09/27/2016 Active Blood Glucose Monitoring Suppl (Scylab medicTOUCH VERIO) W/DEVICE KITIndications:Type 2 diabetes mellitus with [...] bedtime 30 Each 3 10/11/2017 Active nystatin 941336 UNIT/GM creamIndications:Cand idal vulvovaginitis Apply topically to affected area 2 times a day. To affacted area for two weeks. 15 g 2 10/12/2017 Active Blood Glucose Monitoring Suppl ([employer]) w/Device KITIndications:Type 2 diabetes mellitus with hemoglobin A1c goal of less than 7.0% (HCC) Use up to 4 times a day E11.9 1 Kit 0 10/17/2017 Active gabapentin (NEURONTIN) 300 MG Capsule One pill in am, one midday, two in pm, as directed, increase up to 2 capsules 3 times daily 180 Cap 5 11/16/2017 Active Glucose Blood ([employer]) STRP Use up to four times a [...] 7.0% ([facility]) Inject 24 units at bed time [...] 7.0% ([facility]) 09/26/2013 Overview: ICD-10 update of inactive term Vitamin D deficiency 09/26/2013 Lymphedema 03/11/2013 Intermittent asthma with reliever use up to twice per week 01/09/2013 Stasis dermatitis 05/07/2012 NG (nonalcoholic steatohepatitis) 04/12 HTN, goal below 140/90 03/27/2012 Chronic rhinitis 03/27/2012 Cerebral palsy ([facility]) 01/24/2012 Spinal stenosis of lumbar region [...] to 59.9 in adult ( [facility]) 06/12/2017 12/19/2017 Overview: Per Obesity protocol #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 7 02/13/2018 Atypical chest pain 08/19/2016 01/17/2017 Depression with anxiety 08/19/2016 02/14/20 18 Hepatic cirrhosis ([facility]) 08/19/2016 03/28/20 17 Polyuria 08/09/2016 01/17/2017 Urinary frequency 08/09/2016 01/17/2017 Generalized OA 06/14/2016 03/28/2017 Body mass index (BMI) of 45.0-49.9 in adult ([facility] ) 12/09/2015 01/17/2017 Overview: bmi= 48.04 12/09/15 Need for shingles vaccine 12/09/20152015 Bilateral shoulder pain 08/25/2015 06/07/20 16 Bilateral shoulder pain 07/16/2015 06/07/20 16 Cerebral palsy ([facility]) 04/23/2015 03/28/2017 Candidal vulvovaginitis 02/12/2015 06/07/20 16 Obesity, morbid (more than 1 00 lbs over ideal weight or BMI > 40) ([facility]) 02/09/2015 03/28/2017 THAD (obstructive sleep [...] > 40) ([facility]) 10/28/2013 01/17/2017 Overview: bmi= 53.93 [...] > 40) ([facility]) 05/25/2012 01/17/2017 Overview: BMI= 55.27 [...] pain 01/24/2012 01/17/2017 Genetic Sleep Disorder Research Other*[id number] 05/13/2011 04/07/2016 Obstructive sleep apnea 01/18/2011 12/27/19 [...] 02/23/2018 1:51 PM EDT called Imelda at [facility]. The physician that ordered the bedside table has retired and we have no clinic notes for this patient to support why the need she will be seeing her new physician in March at the [facility] office * Telephone Encounter - Saloni Elias CMA - 02/23/2018 1:36 PM EDT This was ordered by Dr Matute. * Telephone Encounter - Savi Bernal, area secretary - 02/23/2018 1:04 PM EDT Jesus Sesay is calling because they need chart notes as to why patient needs a bedside table. Please fax to [phone]. Thanks, Savi Bernal Label Tacker Pharmacy Refill Call Center 02/23/2018,1:06 PM in this encounter Plan of Treatment Upcoming Encounters Date Type Specialty Care Team Description 03/01/2018 Office Visit [facility]ology [facility] [address] [facility] [address] [phone] 03/12/2018 Pharmacy Pharmacy [place], [facility] [address] [place] [address] [phone] 03/20/2018 Office Visit Dermatology Rachel Hill MD [address] [place] [address] [phone] 03/28/2018 Office Visit Family Medicine [facility]winder Carter DO [address] [facility] [address] [phone] 03/30/2018 Office Visit [facility]ology [facility] [address] [facility] [id number] 04/25/2018 Office Visit Gastroenterology Angela Gonzalez, DO [address] [facility] [place] [address] [phone] 08/07/2018 Office Visit Sleep Disorders Lanette Fields CRNP [address] [place] [address] [phone] [place] Nurse Sleep Disorders [address] [place] [address] 12/19/2018 Office Visit Gynecology Obstetrics Irene [...]
--- OUTSIDE RECORDS SUMMARY | 2023-05-10 23:27 | External Medical Summary | Summary of Care ---
Author Name Unknown Organization [place] [address] Phone Care Team Providers Care Paid Search Marketing Strategist Name Role Phone Rajwinder Carter DO Primary Care Provider [phone] Reason for Visit * Reason Comments FORMS REQUEST Encounter Details Date Type Department Care Team Description 02/15/2018 Telephone [place] [place] [address] Rajwinder Carter DO [address] [place] [address] [phone] FORMS REQUEST Allergies Active Allergy Reactions Severity Noted [...] Inhaler 1 06/29/2016 Active Vitamin D, Ergocalciferol, 85310 UNITS CapsuleIndications:Vi tamin D deficiency 1capsule every other week 8 Cap 6 09/27/2016 Active Blood Glucose Monitoring Suppl (VoiceGemTOUCH VERIO) W/DEVICE KITIndications:Type 2 diabetes mellitus with [...] bedtime 30 Each 3 10/11/2017 Active nystatin 154405 UNIT/GM creamIndications:Cand idal vulvovaginitis Apply topically to affected area 2 times a day. To affacted area for two weeks. 15 g 2 10/12/2017 Active Blood Glucose Monitoring Suppl ([employer]) w/Device KITIndications:Type 2 diabetes mellitus with hemoglobin A1c goal of less than 7.0% (HCC) Use up to 4 times a day E11.9 1 Kit 0 10/17/2017 Active gabapentin (NEURONTIN) 300 MG Capsule One pill in am, one midday, two in pm, as directed, increase up to 2 capsules 3 times daily 180 Cap 5 11/16/2017 Active Glucose Blood (VoiceGemTOUCH VERMiria Systems) STRP Use up to four times a [...] pain 01/24/2012 01/17/2017 Genetic Sleep Disorder Research Other*[id number] 05/13/2011 04/07/2016 Obstructive sleep apnea 01/18/2011 12/27/19 [...] > 40) ([facility]) 12/08/2009 07/02/2014 Overview: Per Obesity Taxonomy [...] Telephone Encounter - Susan Rosales RN - 02/16/2018 1:10 PM EDT refaxed and [facility] * Telephone Encounter - Shelly Hirsch LPN - 02/15/2018 3:45 PM EDT Please see call details in this encounter Plan of Treatment Upcoming Encounters Date Type Specialty Care Team Description 02/21/2018 Office Visit Gastroenterology Essence Chase PA-C [address] [place] [address] [phone] 02/23/2018 Office Visit Sleep Disorders Lanette Fields CRNP [address] [place] [address] [phone] 03/01/2018 Office Visit Gastroenterology Lyssa Stout CRNP [address] [place] [address] [phone] 03/12/2018 Pharmacy Pharmacy [facility] [address] [place] [address] [phone] 03/20/2018 Office Visit Dermatology Rachel Hill MD [address] [place] [address] [phone] 03/28/2018 Office Visit Family Medicine Rajwinder Carter DO [address] [place] [address] [phone] 08/07/2018 Office Visit Sleep Disorders Lanette Fields CRNP [address] [place] [address] [phone] [place], Nurse Sleep Disorders [address] [place] [address] [phone] 12/19/2018 Office Visit Gynecology Obstetrics Irene Mujica CRNP [address] [facility] [place] [address] [phone] Health Maintenance Due Date Last Done Comments [...]
--- OUTSIDE RECORDS SUMMARY | 2023-05-10 23:27 | External Medical Summary | Summary of Care ---
Author Name Unknown Organization [place] [address] Phone Care Team Providers Care Pharmacist Apprentice Name Role Phone Rajwinder Carter Primary Care Provider Encounter Details Date Type Department Care Team Description 02/26/2018 Result Scan Unspecified Department <No scans attached> [...] Inhaler 1 06/29/2016 Active Vitamin D, Ergocalciferol, 75336 UNITS CapsuleIndications:Vi tamin D deficiency 1capsule every other week 8 Cap 6 09/27/2016 Active Blood Glucose Monitoring Suppl (BettyvisionTOUCH VERIO) W/DEVICE KITIndications:Type 2 diabetes mellitus with [...] bedtime 30 Each 3 10/11/2017 Active nystatin 539724 UNIT/GM creamIndications:Cand idal vulvovaginitis Apply topically to affected area 2 times a day. To affacted area for two weeks. 15 g 2 10/12/2017 Active Blood Glucose Monitoring Suppl (Places[employer]IO) w/Device KITIndications:Type 2 diabetes mellitus with hemoglobin A1c goal of less than 7.0% (HCC) Use up to 4 times a day E11.9 1 Kit 0 10/17/2017 Active gabapentin (NEURONTIN) 300 MG Capsule One pill in am, one midday, two in pm, as directed, increase up to 2 capsules 3 times daily 180 Cap 5 11/16/2017 Active Glucose Blood (BettyvisionTOUCH VERIO) STRP Use up to four times [...] 02/14/20 18 Hepatic cirrhosis ([facility]) 08/19/2016 03/28/20 17 Polyuria 08/09/2016 01/17/2017 [...] ([facility]) 02/09/2015 03/28/2017 THAD (obstructive sleep apnea) [...] pain 01/24/2012 01/17/2017 Genetic Sleep Disorder Research Other*[id number] 05/13/2011 04/07/2016 Obstructive sleep apnea 01/18/2011 12/27/19 [...] Gastroenterology Lyssa Stout CRNP [address] [place] [address] [phone] 03/12/2018 Pharmacy Pharmacy [facility] [address] [facility] [address] [phone] 03/20/2018 Office Visit Dermatology Rachel Hill MD [address] [place] [address], [place] [address] [phone] 03/28/2018 Office Visit Family Medicine Rajwinder Carter DO [address] [facility] [address] [phone] 03/30/2018 Office Visit Gastroenterology Angela Gonzalez, DO [address], [place] [address] 04/25/2018 Office Visit Gastroenterology Angela Gonzalez, DO [address] [place] [address] [phone] 08/07/2018 Office Visit Sleep Disorders Lanette Fields CRNP [address] [place] [address] [phone] [place] Nurse Sleep Disorders [address] [place] [address] [phone] 12/19/2018 Office Visit Gynecology Obstetrics Irene Mujica [...] on fileas of this encounter Results * RADIOLOGY SCANNED RESULT (02/26/2018) in this encounter
--- OUTSIDE RECORDS SUMMARY | 2023-05-10 23:27 | External Medical Summary | Summary of Care ---
Author Name Unknown Organization [place] [address] Phone Care Team Providers Care Cad Designer Name Role Phone Rajwinder Carter Primary [...] Inhaler 1 06/29/2016 Active Vitamin D, Ergocalciferol, 56940 UNITS CapsuleIndications:Vi tamin D deficiency 1capsule every other week 8 Cap 6 09/27/2016 Active Blood Glucose Monitoring Suppl (NeurOpticsTOUCH VERIO) W/DEVICE KITIndications:Type 2 diabetes mellitus with [...] bedtime 30 Each 3 10/11/2017 Active nystatin 080288 UNIT/GM creamIndications:Cand idal vulvovaginitis Apply topically to affected area 2 times a day. To affacted area for two weeks. 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 7 02/13/2018 Atypical chest pain 08/19/2016 01/17/2017 Depression with anxiety 08/19/2016 02/14/20 18 Hepatic cirrhosis ([facility]) 08/19/2016 03/28/20 17 Polyuria 08/09/2016 [...] pain 01/24/2012 01/17/2017 Genetic Sleep Disorder Research Other*[id number] 05/13/2011 04/07/2016 Obstructive sleep apnea 01/18/2011 12/27/19 [...] Gastroenterology Lyssa Stout CRNP [address] [place] [address] [phone] 03/12/2018 Pharmacy Pharmacy [facility] [address] [facility] [address] [phone] 03/20/2018 Office Visit Dermatology Rachel Hill MD [address] [place] [address], [place] [address] [phone] 03/28/2018 Office Visit Family Medicine Rajwinder Carter DO [address] [facility] [address] [phone] 03/30/2018 Office Visit Gastroenterology Angela Gonzalez, DO [address], [place] [address] 04/25/2018 Office Visit Gastroenterology Angela Gonzalez, DO [address] [place] [address] [phone] 08/07/2018 Office Visit Sleep Disorders Lanette Fields CRNP [address] [place] [address] [phone] [place] Nurse Sleep Disorders [address] [place] [address] [phone] 12/19/2018 Office Visit Gynecology Obstetrics Irene Mujica [...]
--- OUTSIDE RECORDS SUMMARY | 2023-05-10 23:27 | External Medical Summary | Summary of Care ---
Author Name Unknown Organization [place] [address] Phone Care Team Providers Care Marketing Rotation Associate Name Role Phone Rajwinder Carter DO Primary Care Provider [phone] Reason for Visit * Reason Comments Durable Medical Equipment Encounter Details Date Type Department Care Team Description 02/23/2018 Telephone [place] [address] [place] [address] Rajwinder Carter DO [address] [place] [address] [phone] Durable Medical Equipment Allergies Active Allergy Reactions [...] Inhaler 1 06/29/2016 Active Vitamin D, Ergocalciferol, 71825 UNITS CapsuleIndications: Vitamin D deficiency 1capsule every other week 8 Cap 6 09/27/2016 Active Blood Glucose Monitoring Suppl (Rosh[employer] International Bio EnergyTOUCH VERIO) W/DEVICE KITIndications:Type 2 diabetes mellitus with [...] bedtime 30 Each 3 10/11/2017 Active nystatin 231095 UNIT/GM creamIndications:Ca ndidal vulvovaginitis Apply topically to affected area 2 times a day. To affacted area for two weeks. 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 7 02/13/2018 Atypical chest pain 08/19/2016 01/17/2017 Depression with anxiety 08/19/2016 02/14/20 18 Hepatic cirrhosis ([facility]) 08/19/2016 03/28/20 17 Polyuria 08/09/2016 01/17/2017 Urinary frequency 08/09/2016 01/17/2017 Generalized OA 06/14/2016 03/28/2017 Body mass index (BMI) of 45.0-49.9 in adult ([facility] ) 12/09/2015 01/17/2017 Overview: bmi= 48.04 12/09/15 Need for shingles vaccine 12/09/20152015 Bilateral shoulder pain 08/25/2015 06/07/20 16 Bilateral shoulder pain 07/16/2015 06/07/20 16 Cerebral palsy ([facility]) 04/23/2015 03/28/2017 Candidal vulvovaginitis 02/12/2015 06/07/20 16 Obesity, morbid (more than 1 00 lbs over ideal weight or BMI > 40) ([facility]) 02/09/2015 03/28/2017 THAD (obstructive sleep apnea) [...] ideal weight or BMI > 40) ([facility]) 10/28/2013 01/17/2017 Overview: bmi= 53.93 10/28/13 [...] ideal weight or BMI > 40) ([facility]) 05/25/2012 01/17/2017 Overview: BMI= 55.27 05/25/12 [...] pain 01/24/2012 01/17/2017 Genetic Sleep Disorder Research Other*[id number] 05/13/2011 04/07/2016 Obstructive sleep apnea 01/18/2011 12/27/19 [...] ideal weight or BMI > 40) ([facility]) 12/08/2009 07/02/2014 Overview: Per Obesity Taxonomy [...] the script faxed to Dulce Angulo at [facility]. Pt did not know the phone number or fax number. Advised pt she would need to atleast give us the phone number. Pt will call back with the phone number. * Telephone Encounter - Susan Rosales RN - 02/23/2018 1:51 PM EDT called Imelda at [facility]. The physician that ordered the bedside table has retired and we have no clinic notes for this patient to support why the need she will be seeing her new physician in [facility] * Telephone Encounter - Saloni Elias CMA - 02/23/2018 1:36 PM EDT This was ordered by Dr Matute. * Telephone Encounter - Savi Bernal, transportation officer - 02/23/2018 1:04 PM EDT [facility] Andrade Lázaro is calling because they need chart notes as to why patient needs a bedside table. Please fax to [phone]. Thanks, Savi Bernal Dispensing And Measuring Optician Pharmacy Refill Call Center 02/23/2018,1:06 PM in this encounter Plan of Treatment Upcoming Encounters Date Type Specialty Care Team Description 03/01/2018 Office Visit [facility]ology [facility] [address] [facility] [address] [phone] 03/12/2018 Pharmacy [facility] [address] [address] [phone] 03/20/2018 Office Visit Dermatology Rachel Hill MD [address] [place], [place] [address] [address] [phone] 03/28/2018 Office Visit Family Medicine Rajwinder Carter, DO [address] [place] [address] [phone] 03/30/2018 Office Visit Gastroenterology Angela Gonzalez, DO [address] [facility] [place], [place] [address] 04/25/2018 Office Visit Gastroenterology Angela Gonzalez, DO [address] [facility] [place] [address] [phone] 08/07/2018 Office Visit Sleep Disorders Lanette Fields CRNP [address] [place] [address] [phone] Nurse [place] Sleep Disorders [address] [place] [address] [phone] 12/19/2018 Office Visit Gynecology Obstetrics Irene Mujica CRNP [address] [place] [address] [phone] Health Maintenance Due Date Last Done Comments [...]
--- OUTSIDE RECORDS SUMMARY | 2023-05-10 23:27 | External Medical Summary | Summary of Care ---
Author Name Unknown Organization [place] [address] Phone Care Team Providers Care Phlebotomy Technician Name Role Phone Rajwinder Carter DO Primary Care Provider [phone] Reason for Visit * Reason Comments Durable Medical Equipment Encounter Details Date Type Department Care Team Description 02/23/2018 Telephone [address] [place] [address] Rajwinder Carter DO [address] [place] [address] [phone] Durable Medical Equipment Allergies Active Allergy Reactions [...] Inhaler 1 06/29/2016 Active Vitamin D, Ergocalciferol, 06352 UNITS CapsuleIndications: Vitamin D deficiency 1capsule every other week 8 Cap 6 09/27/2016 Active Blood Glucose Monitoring Suppl (ZwipeTOUCH VERIO) W/DEVICE KITIndications:Type 2 diabetes mellitus with [...] bedtime 30 Each 3 10/11/2017 Active nystatin 452801 UNIT/GM creamIndications:Ca ndidal vulvovaginitis Apply topically to affected area 2 times a day. To affacted area for two weeks. 15 g 2 10/12/2017 Active Blood Glucose Monitoring Suppl ([employer] VERIO) w/Device KITIndications:Type 2 diabetes mellitus [...] 40) ([facility]) 02/09/2015 03/28/2017 THAD (obstructive sleep apnea) [...] pain 01/24/2012 01/17/2017 Genetic Sleep Disorder Research Other*[id number] 05/13/2011 04/07/2016 Obstructive sleep apnea 01/18/2011 12/27/19 [...] the script faxed to Dulce Angulo at [facility]. Pt did not know the phone number or fax number. Advised pt she would need to atleast give us the phone number. Pt will call back with the phone number. * Telephone Encounter - Susan Rosales RN - 02/23/2018 1:51 PM EDT called Imelda at [facility]. The physician that ordered the bedside table has retired and we have no clinic notes for this patient to support why the need she will be seeing her new physician in March at the [facility] office * Telephone Encounter - Saloni Elias CMA - 02/23/2018 1:36 PM EDT This was ordered by Dr Matute. * Telephone Encounter - Savi Bernal, sr. director - 02/23/2018 1:04 PM EDT Jesus Andrade Lázaro is calling because they need chart notes as to why patient needs a bedside table. Please fax to [phone]. Thanks, Savi Bernal Teletypist Pharmacy Refill Call Center 02/23/2018,1:06 PM in this encounter Plan of Treatment Upcoming Encounters Date Type Specialty Care Team Description 03/01/2018 Office Visit [facility]ology [facility] [address] [facility] [address] [phone] 03/12/2018 Pharmacy Pharmacy [facility] [address] [address] [phone] 03/20/2018 Office Visit Dermatology Rachel Hill MD [address] [place], [place] [address] [address] [phone] 03/28/2018 Office Visit Family Medicine Rajwinder Carter, DO [address] [place] [address] [phone] 03/30/2018 Office Visit Gastroenterology Angela Gonzalez, DO [address] [facility], [place] [address] 04/25/2018 Office Visit Gastroenterology Angela Gonzalez, DO [address] [facility] [place] [address] [phone] 08/07/2018 Office Visit Sleep Disorders Lanette Fields CRNP [address] [place] [address] [phone] Nurse [facility] Sleep Disorders [address] [place] [address] [phone] 12/19/2018 Office Visit Gynecology Obstetrics Irene Mujica CRNP [address] [place] [address] [phone] Health Maintenance Due Date Last Done Comments [...]
--- OUTSIDE RECORDS SUMMARY | 2023-05-10 23:27 | External Medical Summary | Summary of Care ---
Author Name Unknown Organization [place] [address] Phone Care Team Providers Care Complaint Specialist Name Role Phone Rajwinder Carter DO Primary Care Provider [phone] Reason for Visit * Reason Comments MEDICATION REFILL Encounter Details Date Type Department Care Team Description 02/23/[address] [address] Rajwinder Carter DO [address] [place] [address] [phone] Allergies Active Allergy Reactions Severity Noted Date [...] Inhaler 1 06/29/2016 Active Vitamin D, Ergocalciferol, 57696 UNITS CapsuleIndications: Vitamin D deficiency 1capsule every other week 8 Cap 6 09/27/2016 Active Blood Glucose Monitoring Suppl (Eco-SiteTOUCH VERIO) W/DEVICE KITIndications:Type 2 diabetes mellitus with [...] bedtime 30 Each 3 10/11/2017 Active nystatin 496618 UNIT/GM creamIndications:Ca ndidal vulvovaginitis Apply topically to affected area 2 times a day. To affacted area for two weeks. 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 7 02/13/2018 Atypical chest pain 08/19/2016 01/17/2017 Depression with anxiety 08/19/2016 02/14/20 18 Hepatic cirrhosis ([facility]) 08/19/2016 03/28/20 17 Polyuria 08/09/2016 01/17/2017 Urinary frequency 08/09/2016 01/17/2017 Generalized OA 06/14/2016 03/28/2017 Body mass index (BMI) of 45.0-49.9 in adult ([facility] ) 12/09/2015 01/17/2017 Overview: bmi= 48.04 12/09/15 Need for shingles vaccine 12/09/20152015 Bilateral shoulder pain 08/25/2015 06/07/20 16 Bilateral shoulder pain 07/16/2015 06/07/20 16 Cerebral palsy ([facility]) 04/23/2015 03/28/2017 Candidal vulvovaginitis 02/12/2015 06/07/20 16 Obesity, morbid (more than 1 00 lbs over ideal weight or BMI > 40) ([facility]) 02/09/2015 03/28/2017 THAD (obstructive sleep [...] over ideal weight or BMI > 40) ([facility]) 10/28/2013 01/17/2017 Overview: bmi= 53.93 [...] over ideal weight or BMI > 40) ([facility]) 05/25/2012 01/17/2017 Overview: BMI= 55.27 [...] pain 01/24/2012 01/17/2017 Genetic Sleep Disorder Research Other*[id number] 05/13/2011 04/07/2016 Obstructive sleep apnea 01/18/2011 12/27/19 [...] Gastroenterology Lyssa Stout CRNP [address] [place] [address] [address] [phone] 03/12/2018 Pharmacy Pharmacy [facility] [address] [place] [address] [phone] 03/20/2018 Office Visit Dermatology Rachel Hill MD [address] [place] [address] [phone] 03/28/2018 Office Visit Family Medicine Rajwinder Carter DO [address] [place] [address] [phone] 03/30/2018 Office Visit Gastroenterology Angela Gonzalez, DO [address] [place] [address] [phone] 04/25/2018 Office Visit Gastroenterology Angela Gonzalez, DO [address] [place] [address] [phone] 08/07/2018 Office Visit Sleep Disorders Lanette Fields CRNP [address] [place] [address] [address] [place] Nurse Sleep Disorders [address] [place] [address] [address] 12/19/2018 Office Visit Gynecology Obstetrics Irene Mujica CRNP [address] [address] [address] Health Maintenance Due Date Last Done Comments [...]
--- OUTSIDE RECORDS SUMMARY | 2023-05-10 23:28 | External Medical Summary | Summary of Care ---
Author Name Unknown Organization [place] [address] Phone Care Team Providers Care Cash Processing Specialist Name Role Phone Rajwinder Carter DO Primary Care Provider [phone] Reason for Visit * Reason Comments MEDICATION REFILL Encounter Details Date Type Department Care Team Description 02/15/[address] [address] Rajwinder Carter DO [address] [place] [address] [phone] Allergies Active Allergy Reactions Severity Noted Date [...] Inhaler 1 06/29/2016 Active Vitamin D, Ergocalciferol, 97259 UNITS CapsuleIndications: Vitamin D deficiency 1capsule every other week 8 Cap 6 09/27/2016 Active Blood Glucose Monitoring Suppl (ONETOUCH VERIO) W/DEVICE KITIndications:Type 2 diabetes mellitus with [...] 0 07/14/2017 Active furosemide (LASIX) 20 MG TabletIndications:E abelardo,Stasis [...] 10/11/2017 Active fluticasone (FLONASE) 50 MCG/ACT nasal sprayIndications:Si nus congestion Administer 2 Sprays into each nostril daily. 1 Inhaler 5 10/11/2017 Active Insulin Pen Needle 31G X 6 MM MISCIndications:Typ e 2 diabetes mellitus with hemoglobin A1c goal of less than 7.0% (HCC) Use with Lantus Solostar at bedtime 30 Each 3 10/11/2017 Active nystatin 140898 UNIT/GM creamIndications:Ca ndidal vulvovaginitis Apply topically to affected area 2 times a day. To affacted area for two weeks. 15 g 2 10/12/2017 Active Blood Glucose Monitoring Suppl ([employer]) w/Device KITIndications:Type 2 diabetes mellitus with hemoglobin A1c goal of less than 7.0% (HCC) Use up to 4 times a day E11.9 1 Kit 0 10/17/2017 Active gabapentin (NEURONTIN) 300 MG Capsule One pill in am, one midday, two in pm, as directed, increase up to 2 capsules 3 times daily 180 Cap 5 11/16/2017 Active Glucose Blood (BAASBOXTOUCH VERTeqcycle) STRP Use up to four times a [...] 5 01/10/2018 Active traZODone (DESYREL) 50 MG TabletIndications:S [...] 7.0% ([facility]) Inject 24 units at bed time [...] at bedtime. 30 Tab 0 02/15/2018 Active cyclobenzaprine (FLEXERIL) 10 MG Tablet Take 1 Tab by mouth at bedtime. 30 Tab 0 01/10/2018 02/16/20 18 Discontinued as of this encounter Active [...] pain 01/24/2012 01/17/2017 Genetic Sleep Disorder Research Other*[id number] 05/13/2011 04/07/2016 Obstructive sleep apnea 01/18/2011 12/27/19 [...] > 40) ([facility]) 12/08/2009 07/02/2014 Overview: Per Obesity Taxonomy [...] Miscellaneous Notes * Telephone Encounter - Maikel Burrell DO - 02/15/2018 2:37 PM EDT Signed Prescriptions: Disp Refills cyclobenzaprine (FLEXERIL) 10 MG Tablet 30 Tab 0 Sig: Take 1 Tab by mouth at bedtime. Authorizing Provider: MAIKEL BURRELL * Telephone Encounter - Shannan Bojorquez LPN - 02/15/2018 2:32 PM EDT Formatting of this note may be different from the original. Pending Prescriptions: Disp Refills cyclobenzaprine (FLEXERIL) 10 MG Tablet 30 Tab 0 Sig: Take 1 Tab by mouth at bedtime. Last Office Visit: 02/13/2018 Next Office Visit: 03/28/2018 Scheduled Provider(s): Rajwinder Carter DO Last date the medication was ordered: 01/10/2018 Patient Active Problem List Diagnosis Code Spinal [...] Chronic pain syndrome G89.4 MEDICATION USE AGREEMENT [id number] History of Clostridium difficile colitis Z86.19 Cirrhosis [...] Office Visit Gastroenterology Essence Chase PA-C [address] [address] [phone] 02/23/2018 Office Visit Sleep Disorders Lanette Fields CRNP [address] [address] [phone] 02/26/2018 Office Visit Gastroenterology Lyssa Stout CRNP [address] [address] [address] [phone] 03/12/2018 [facility] [address] [facility] [address] [phone] 03/20/2018 Office Visit Dermatology Rachel Hill MD [address] [place] [address] [phone] 03/28/2018 Office Visit Family Medicine [facility]inder [facility] [address] [facility] [address] [phone] 08/07/2018 Office Visit Sleep Disorders Lanette Fields CRNP [address] [address] [phone] [place] Nurse Sleep Disorders [address] [address] [phone] 12/19/2018 Office Visit Gynecology Obstetrics Irene Mujica CRNP [address] [address] [address] [phone] Health Maintenance Due Date Last Done Comments DIABETES-EYE EXAM 1973 BREAST CANCER SCREENING DISCUSSION YEARLY AGES 40-75 01/18/2018 01/18/2017, 01/17/2017 (Discussed), 12/22/2015, Additional history exists *TSH FOR THYROID MEDICATION MONITORING YEARLY 02/04/2018 DIABETES-HGBA1C EVERY 6 MONTHS 08/15/2018 02/13/2018, 10/11/2017, [...]
--- OUTSIDE RECORDS SUMMARY | 2023-05-10 23:28 | External Medical Summary | Summary of Care ---
Author Name Unknown Organization [place] [address] Phone Care Team Providers Care Duct Maker Name Role Phone Rajwinder Carter Primary Care Provider [phone] Encounter Details Date Type Department Care Team Description 02/13/2018 Scan Encounter Unspecified Department <No scans attached> [...] Inhaler 1 06/29/2016 Active Vitamin D, Ergocalciferol, 83581 UNITS CapsuleIndications:Vi tamin D deficiency 1capsule every other week 8 Cap 6 09/27/2016 Active Blood Glucose Monitoring Suppl (Look.ioTOUCH VERIO) W/DEVICE KITIndications:Type 2 diabetes mellitus with [...] bedtime 30 Each 3 10/11/2017 Active nystatin 923943 UNIT/GM creamIndications:Cand idal vulvovaginitis Apply topically to affected area 2 times a day. To affacted area for two weeks. 15 g 2 10/12/2017 Active Blood Glucose Monitoring Suppl (Look.ioTOUCH VERIO) w/Device KITIndications:Type 2 diabetes mellitus with hemoglobin A1c goal of less than 7.0% (HCC) Use up to 4 times a day E11.9 1 Kit 0 10/17/2017 Active gabapentin (NEURONTIN) 300 MG Capsule One pill in am, one midday, two in pm, as directed, increase up to 2 capsules 3 times daily 180 Cap 5 11/16/2017 Active Glucose Blood (Look.ioTOUCH VERIO) STRP Use up to four times [...] at bedtime. 30 Tab 5 01/10/2018 Active cyclobenzaprine (FLEXERIL) 10 MG Tablet Take 1 Tab by mouth at bedtime. 30 Tab 0 01/10/2018 Active levothyroxine (LEVOXYL) 100 MCG Tablet Take 1 Tab by mouth daily. (at least 30 min prior to breakfast or other meds) 30 Tab 5 01/10/2018 Active insulin glargine (LANTUS SOLOSTAR) 100 UNIT/ML SOPNIndications:Type 2 diabetes mellitus with hemoglobin A1c goal of less than 7.0% ([facility]) Inject 24 units at bed time [...] for Pain. 60 Tab 0 02/13/2018 Active as of this encounter Active Problems Problem Noted Date THAD on CPAP 12/26/2017 Cirrhosis of liver ([facility]) 11/20/2017 History of Clostridium difficile colitis 08/29/2017 Chronic pain syndrome 01/17/2017 MEDICATION USE AGREEMENT 01/17/2017 Overview: 01/17/17 Acquired hypothyroidism 12/12/2016 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 1 10/09/2015 Restrictive lung disease 12/10/2014 Type 2 diabetes mellitus with hemoglobin A1c goal of less than 7.0% ([facility]) 09/26/2013 Overview: ICD-10 update of inactive [...] of 50.0 to 59.9 in adult ( [facility]) 06/12/2017 12/19/2017 Overview: Per Obesity protocol #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 7 02/13/2018 Atypical chest pain 08/19/2016 01/17/2017 Depression with anxiety 08/19/2016 02/14/20 18 Hepatic cirrhosis ([facility]) 08/19/2016 03/28/20 17 Polyuria 08/09/2016 01/17/2017 Urinary frequency 08/09/2016 01/17/2017 Generalized OA 06/14/2016 03/28/2017 Body mass index (BMI) of 45.0-49.9 in adult ([facility] ) 12/09/2015 01/17/2017 Overview: bmi= 48.04 12/09/15 Need for shingles vaccine 12/09/20152015 Bilateral shoulder pain 08/25/2015 06/07/20 16 Bilateral shoulder pain 07/16/2015 06/07/20 16 Cerebral palsy ([facility]) 04/23/2015 03/28/2017 Candidal vulvovaginitis 02/12/2015 06/07/20 16 Obesity, morbid (more than 1 00 lbs over ideal weight or BMI > 40) ([facility]) 02/09/2015 03/28/2017 THAD (obstructive sleep apnea) 02/09/2015 [...] > 40) ([facility]) 10/28/2013 01/17/2017 Overview: bmi= 53.93 2/17/14 Sleep [...] pain 01/24/2012 01/17/2017 Genetic Sleep Disorder Research Other*[id number] 05/13/2011 04/07/2016 Obstructive sleep apnea 01/18/2011 12/27/19 [...] > 40) ([facility]) 12/08/2009 07/02/2014 Overview: Per Obesity Taxonomy [...] Office Visit Gastroenterology Essence Chase PA-C [address] [place] [address] [phone] 02/23/2018 Office Visit Sleep Disorders Lanette Fields CRNP [address] [place] [address] [phone] 02/26/2018 Office Visit Gastroenterology Lyssa Stout CRNP [address] [place] [address] [phone] 03/12/2018 Pharmacy Pharmacy [facility] [address] [place] [address] [phone] 03/20/2018 Office Visit Dermatology Rachel Hill MD [address] [place] [address] [phone] 03/28/2018 Office Visit Family Medicine Rajwinder Carter, DO [address] [facility] [address] [phone] 08/07/2018 Office Visit Sleep Disorders Lanette Fields CRNP [address] [place] [address] [phone] [place], Nurse Sleep Disorders [address] [place] [address] [phone] 12/19/2018 Office Visit Gynecology Obstetrics Irene Mujica CR[facility] [address] [facility] [place] [address] [phone] Health Maintenance Due Date Last Done Comments [...]
--- OUTSIDE RECORDS SUMMARY | 2023-05-10 23:28 | External Medical Summary | Summary of Care ---
Author Name Unknown Organization [place] [address] Phone Care Team Providers Care Spinner Cap Frame Name Role Phone Rajwinder Carter DO Primary Care Provider Encounter Details Date Type Department Care Team Description 02/16/2018 Orders Only Outcomes Research Department [address] [place] [place] [address] Rajwinder Carter DO [address] [facility] [place] [id number] [employer] Other*[id number] Allergies Active Allergy Reactions Severity Noted Date [...] Inhaler 1 06/29/2016 Active Vitamin D, Ergocalciferol, 42557 UNITS CapsuleIndications:Vi tamin D deficiency 1capsule every [...] bedtime 30 Each 3 10/11/2017 Active nystatin 972618 UNIT/GM creamIndications:Cand idal vulvovaginitis Apply topically to affected area 2 times a day. To affacted area for two weeks. 15 g 2 10/12/2017 Active Blood Glucose Monitoring Suppl (Hand Therapy SolutionsUCH VERIO) w/Device KITIndications:Type 2 diabetes mellitus with hemoglobin A1c goal of less than 7.0% (HCC) Use up to 4 times a day E11.9 1 Kit 0 10/17/2017 Active gabapentin (NEURONTIN) 300 MG Capsule One pill in am, one midday, two in pm, as directed, increase up to 2 capsules 3 times daily 180 Cap 5 11/16/2017 Active Glucose Blood (IntelliWare SystemsTOUCH VERIO) STRP Use up to four [...] less than 7.0% ([facility]) Inject 24 units at bed time 5 [...] of less than 7.0% ([facility]) 09/26/2013 Overview: ICD-10 update of inactive [...] of 50.0 to 59.9 in adult ( [facility]) 06/12/2017 12/19/2017 Overview: Per Obesity protocol #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 7 02/13/2018 Atypical chest pain 08/19/2016 01/17/2017 Depression with anxiety 08/19/2016 02/14/20 18 Hepatic cirrhosis ([facility]) 08/19/2016 03/28/20 17 Polyuria 08/09/2016 01/17/2017 Urinary frequency 08/09/2016 01/17/2017 Generalized OA 06/14/2016 03/28/2017 Body mass index (BMI) of 45.0-49.9 in adult ([facility] ) 12/09/2015 01/17/2017 Overview: bmi= 48.04 12/09/15 Need for shingles vaccine 12/09/20152015 Bilateral shoulder pain 08/25/2015 06/07/20 16 Bilateral shoulder pain 07/16/2015 06/07/20 16 Cerebral palsy ([facility]) 04/23/2015 03/28/2017 Candidal vulvovaginitis 02/12/2015 06/07/20 16 Obesity, morbid (more than 1 00 lbs over ideal weight or BMI > 40) ([facility]) 02/09/2015 03/28/2017 THAD (obstructive sleep apnea) 02/09/2015 [...] weight or BMI > 40) ([facility]) 10/28/2013 01/17/2017 Overview: bmi= 53.93 10/28/13 [...] weight or BMI > 40) ([facility]) 05/25/2012 01/17/2017 Overview: BMI= 55.27 05/25/12 [...] pain 01/24/2012 01/17/2017 Genetic Sleep Disorder Research Other*[id number] 05/13/2011 04/07/2016 Obstructive sleep apnea 01/18/2011 12/27/19 [...] weight or BMI > 40) ([facility]) 12/08/2009 07/02/2014 Overview: Per Obesity Taxonomy [...] Chase PA-C [address] [place] [address] [phone] 02/23/2018 Office Visit [facility] Disorders [facility] [address] [facility] [place] [address] [phone] 02/26/2018 Office Visit Gastroenterology Lyssa Stout [facility] [address] [facility] [place] [address] [phone] 03/12/2018 Pharmacy Pharmacy [facility] [address] [place] [address] [phone] 03/20/2018 Office Visit Dermatology Rachel Hill MD [address] [place] [address] [phone] 03/28/2018 Office Visit Family Medicine Rajwinder Carter DO [address] [place] [address] [phone] 08/07/2018 Office Visit Sleep Disorders [facility]ette Fields CRNP [address] [facility] [place] [address] [phone] [place], Nurse Sleep Disorders [address] [facility] [place] [address] [phone] 12/19/2018 Office Visit Gynecology Obstetrics Irene Mujica CRNP [address] [place] [address] [phone] Scheduled Tests Name Priority Associated Diagnoses Order S chedule MYCODE SUBSEQUENT ADULT Routine MyCode Research Other*[id number] Every 6 Months for 2 Occurrences starting 02/16/2018 until 03/08/2019 Health Maintenance Due Date Last Done Comments [...] fileas of this encounter Visit Diagnoses Diagnosis MYCODE RESEARCH OTHER*[id number] in this encounter
--- OUTSIDE RECORDS SUMMARY | 2023-05-10 23:28 | External Medical Summary ---
Author Name Unknown Address [facility] [place] [address] Phone Organization K01:[facility] [address] [id number] Laboratory Report Ordering Provider Test Date Status JANE FLORES 02/13/2018 15:27:00 Final Observation Date Value Abnormality Reference Status HbA1C 02/13/2018 22:25 7.1 Above high normal 4.0-6 .4 Final Performing Location [facility] [address] [facility] [address]
--- OUTSIDE RECORDS SUMMARY | 2023-05-10 23:28 | External Medical Summary | Summary of Care ---
Author Name Unknown Organization [place] [address] Phone Care Team Providers Care Machine I Trimmer Name Role Phone Rajwinder Carter Primary Care Provider [phone] Encounter Details Date Type Department Care Team [...] Inhaler 1 06/29/2016 Active Vitamin D, Ergocalciferol, 55984 UNITS CapsuleIndications: Vitamin D deficiency 1capsule every other week 8 Cap 6 09/27/2016 Active Blood Glucose Monitoring Suppl (EcholocationTONature's Therapy VERIO) W/DEVICE KITIndications:Type 2 diabetes mellitus with hemoglobin A1c goal of less than 7.0% (HCC) Use as directed. Use daily to check blood sugars DX:E11.9 1 Kit 0 01/17/2017 Active EcholocationTOUCH ULTRASOFT LANCETS MISCIndications:Typ e 2 diabetes mellitus [...] bedtime 30 Each 3 10/11/2017 Active nystatin 091331 UNIT/GM creamIndications:Ca ndidal vulvovaginitis Apply topically to affected area 2 times a day. To affacted area for two weeks. 15 g 2 10/12/2017 Active Blood Glucose Monitoring Suppl (EcholocationTOUCH VERIO) w/Device KITIndications:Type 2 diabetes mellitus with [...] ([facility]) Inject 24 units at bed time 5 [...] THAD on CPAP 12/26/2017 Cirrhosis of liver ([facility]) 11/20/2017 History of Clostridium difficile colitis 08/29/2017 Chronic pain syndrome 01/17/2017 MEDICATION USE AGREEMENT 01/17/2017 Overview: 01/17/17 Acquired hypothyroidism 12/12/2016 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 1 10/09/2015 Restrictive lung disease 12/10/2014 Type 2 diabetes mellitus with hemoglobin A1c goal of less than 7.0% ([facility]) 09/26/2013 Overview: ICD-10 update of inactive term [...] of 50.0 to 59.9 in adult ( [facility]) 06/12/2017 12/19/2017 Overview: Per Obesity protocol #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 7 02/13/2018 Atypical chest pain 08/19/2016 01/17/2017 Depression with anxiety 08/19/2016 02/14/20 18 Hepatic cirrhosis ([facility]) 08/19/2016 03/28/20 17 Polyuria 08/09/2016 01/17/2017 Urinary frequency 08/09/2016 01/17/2017 Generalized OA 06/14/2016 03/28/2017 Body mass index (BMI) of 45.0-49.9 in adult ([facility] ) 12/09/2015 01/17/2017 Overview: bmi= 48.04 12/09/15 Need for shingles vaccine 12/09/20152015 Bilateral shoulder pain 08/25/2015 06/07/20 16 Bilateral shoulder pain 07/16/2015 06/07/20 16 Cerebral palsy ([facility]) 04/23/2015 03/28/2017 Candidal vulvovaginitis 02/12/2015 06/07/20 16 Obesity, morbid (more than 1 00 lbs over ideal weight or BMI > 40) ([facility]) 02/09/2015 03/28/2017 THAD (obstructive sleep apnea) 02/09/2015 [...] 40) ([facility]) 10/28/2013 01/17/2017 Overview: bmi= 53.93 10/28/13 Sleep [...] pain 01/24/2012 01/17/2017 Genetic Sleep Disorder Research Other*[id number] 05/13/2011 04/07/2016 Obstructive sleep apnea 01/18/2011 12/27/19 [...] Gastroenterology Essence Chase PA-C [address] [place] [address] [phone] 02/23/2018 Office Visit Sleep Disorders Lanette Fields CRNP [address] [place] [address] [address] [phone] 02/26/2018 Office Visit Gastroenterology Lyssa Stout CRNP [address] [place] [address] [address] [phone] 03/12/2018 [facility] [address] [facility] [address] [phone] 03/20/2018 Office Visit Dermatology Rachel Hill MD [address] [place] [address] [place] [address] [phone] 03/28/2018 Office Visit Family Medicine [facility]winder Carter[facility] [address] [facility] [address] [phone] 08/07/2018 Office Visit Sleep Disorders Lanette Fields CRNP [address] [place] [address] [address] [phone] [place] Nurse Sleep Disorders [address] [place] [address] [address] [phone] 12/19/2018 Office Visit Gynecology Obstetrics Irene Mujica CRNP [address] [place] [address] [address] [phone] Health Maintenance Due Date Last Done Comments [...]
--- OUTSIDE RECORDS SUMMARY | 2023-05-10 23:28 | External Medical Summary ---
Author Name Unknown Address [address] [place] [address] Phone Organization K01:[facility] [address] [id number] Laboratory Report Ordering Provider Test Date Status JANE FLORES 02/13/2018 15:27:00 Final Observation Date Value Abnormality Reference Status Hep A IgM 02/13/2018 22:42 NEGATIVE NEG Fin al Hep B Core IgM 02/13/2018 22:42 NEGATIVE NEG Final Hep B surface Ag 02/13/2018 22:42 NEGATIVE NEG Final Hep C Ab 02/13/2018 22:42 NEGATIVE NEG Fin al Performing Location [facility] [address] [facility] [address]
--- OUTSIDE RECORDS SUMMARY | 2023-05-10 23:28 | External Medical Summary ---
Author Name Unknown Address [address] [place] [address] Phone Organization K01:[facility] [address] [id number] Laboratory Report Ordering Provider Test Date Status JANE FLORES 02/13/2018 15:27:00 Final Observation Date Value Abnormality Reference Status 25-OH Vitamin D total 02/13/2018 23:14 38 > 19 Final Performing Location [place] [address] [facility] [address]
--- OUTSIDE RECORDS SUMMARY | 2023-05-10 23:28 | External Medical Summary ---
Author Name Unknown Address [address] [place] [place] [address] Phone Organization K01:[facility] [address] [facility] [address] Laboratory Report Ordering Provider Test Date Status JANE FLORES 02/13/2018 15:27:00 Final Observation Date Value Abnormality Reference Status WBC, Total 02/13/2018 22:15 3.13 Below low normal 4.00- 10.80 Final RBC 02/13/2018 22:15 3.86 3.85-5.15 Fin al Hemoglobin 02/13/2018 22:15 11.6 Below low normal 12.0- 15.3 Final HCT 02/13/2018 22:15 36.4 36.0-45.2 Fin al MCV 02/13/2018 22:15 94.3 81.5-97.5 Fin al MCH 02/13/2018 22:15 30.1 27.0-34.0 Fin al MCHC 02/13/2018 22:15 31.9 Below low normal 32.0-3 6.0 Final RDW 02/13/2018 22:15 15.4 11.5-15.5 Fin al Platelets 02/13/2018 22:15 100 Below low normal 140-40 0 Final MPV 02/13/2018 22:15 13.5 Above high normal 6.6-1 1.1 Final Segs 02/13/2018 22:15 49.0 40-75 Fin al Lymphs % 02/13/2018 22:15 28.4 18-42 Fin al Monos 02/13/2018 22:15 10.5 1-11 Fin al Eosinophils 02/13/2018 22:15 10.5 Above high normal 0-6 Final Basos 02/13/2018 22:15 1.3 0-2 Fin al Immature Granulocyte, Percent 02/13/2018 22:15 0.3 0-2 Final Absolute Segs 02/13/2018 22:15 1.53 Below low normal 1. 8-7.7 Final Lymphs, absolute 02/13/2018 22:15 0.89 Below low normal 1.0-4.8 Final Monos, Abs 02/13/2018 22:15 0.33 0.0-1.1 Fi nal Eos, Abs 02/13/2018 22:15 0.33 0.0-0.7 Fin al Basos, Abs 02/13/2018 22:15 0.04 0.0-0.2 Fi nal Immature Granulocytes, Number 02/13/2018 22:15 0.01 0.0-0.2 Final Performing Location [facility] [address] [facility] [address]
--- OUTSIDE RECORDS SUMMARY | 2023-05-10 23:28 | External Medical Summary ---
Author Name Unknown Address [facility] [place] [place] [address] Phone Organization K01:[place] [address] [id number] Laboratory Report Ordering Provider Test Date Status SADNRAJANE 02/13/2018 15:27:00 Final Observation Date Value Abnormality Reference Status TSH 02/13/2018 23:14 0.01 Below low normal 0.27-4 .2 Final T4, Free 02/13/2018 23:36 2.04 Above high normal 0.9-1 .7 Final Performing Location [place] [address] [address] [facility] [address]
--- OUTSIDE RECORDS SUMMARY | 2023-05-10 23:28 | External Medical Summary ---
Author Name Unknown Address [address] [place] [id number] Phone Organization K01:[place] [address] [id number] Laboratory Report Ordering Provider Test Date Status JANE FLORES 02/13/2018 15:27:00 Final Observation Date Value Abnormality Reference Status Magnesium 02/13/2018 22:25 1.9 1.5-2.6 Fin al Performing Location [address] [address]
--- OUTSIDE RECORDS SUMMARY | 2023-05-10 23:29 | External Medical Summary | Summary of Care ---
Author Name Unknown Organization [place] [address] Phone Care Team Providers Care Furniture Fabricator Name Role Phone Rajwinder Carter DO Primary Care Provider [phone] Reason for Visit * Reason Comments FORMS REQUEST Jesus Glover obaiyana Encounter Details Date Type Department Care Team Description 02/06/[address] [facility] [address] [place] [address] Rajwinder Carter DO [address] [place] [address] [phone] FORMS REQUEST (angelMD) Allergies Active Allergy Reactions Severity Noted Date [...] Inhaler 1 06/29/2016 Active Vitamin D, Ergocalciferol, 72784 UNITS CapsuleIndications:Vi tamin D deficiency 1capsule every other week 8 Cap 6 09/27/2016 Active Blood Glucose Monitoring Suppl (ONETOUCH VERIO) W/DEVICE KITIndications:Type 2 diabetes mellitus with hemoglobin A1c goal of less than 7.0% (HCC) Use as directed. Use daily to check blood sugars DX:E11.9 1 Kit 0 01/17/2017 Active Glucose Blood (Autifony TherapeuticsTOUCH ULTRA BLUE) STRPIndications:Type 2 diabetes mellitus with hemoglobin A1c goal of less than 7.0% (HCC) Use as directed 4 times a day as needed for Other (Use daily to check blood sugars DX:E11.9). Use up to four times a day as directed 100 Strip 11 01/17/2017 Active ONETOUCH ULTRASOFT LANCETS MISCIndications:Type 2 [...] 07/14/2017 Active furosemide (LASIX) 20 MG TabletIndications:Erickson ren,Stasis [...] bedtime 30 Each 3 10/11/2017 Active nystatin 232611 UNIT/GM creamIndications:Cand idal vulvovaginitis Apply topically to affected area 2 times a day. To affacted area for two weeks. 15 g 2 10/12/2017 Active Blood Glucose Monitoring Suppl (Autifony TherapeuticsTOUCH VERIO) w/Device KITIndications:Type 2 diabetes mellitus with hemoglobin A1c goal of less than 7.0% (HCC) Use up to 4 times a day E11.9 1 Kit 0 10/17/2017 Active gabapentin (NEURONTIN) 300 MG Capsule One pill in am, one midday, two in pm, as directed, increase up to 2 capsules 3 times daily 180 Cap 5 11/16/2017 Active Glucose Blood (Autifony TherapeuticsTOUCH VERIO) STRP Use up to four times a day as directed.DX:E11. 9 400 Strip 3 12/04/2017 Active PredniSONE (DELTASONE) 10 MG TabletIndications:Bro nchitis, complicated Take 5 tabs for 2 days, 4 tabs for 2 days, 3 tabs for 2 days, 2 tabs for 2 days 1 tab for 2 days 30 Tab 0 12/19/2017 Active HYDROcodone-homatropi ne (HYCODAN) 5-1.5 MG/5ML SYRPIndications:Sleep disturbance Take 5 mL by mouth at bedtime as needed for Cough. 120 mL 0 12/19/2017 Active Dulaglutide (TRULICITY) 0.75 MG/0.5ML SOPN Inject [...] other meds) 30 Tab 5 01/10/2018 Active Hydrocodone-Acetamino phen (NORCO) 10-325 MG per tabletIndications:Spi nal stenosis of lumbar region without neurogenic claudication,DDD (degenerative disc disease), lumbar,MEDICATION USE AGREEMENT Take 1 Tab by mouth 2 times a day as needed for Pain. 60 Tab 0 01/15/2018 Active insulin glargine (LANTUS SOLOSTAR) 100 UNIT/ML SOPNIndications:Type 2 diabetes mellitus with hemoglobin A1c goal of less than 7.0% (HCC) Inject 24 units at bed time 5 Pre-filled Pen Syringe Dosing Unit 3 01/29/2018 Active as of this encounter Active Problems Problem Noted Date THAD on CPAP 12/26/2017 Cirrhosis of liver (HCC) 11/20/2017 Bladder tumor 10/11/2017 Chronic indwelling Cline catheter 2017 Recurrent UTI 10/11/2017 Preoperative cardiovascular examination 10/11/2017 History of Clostridium difficile colitis 08/29/2017 Debility 07/19/2017 Chronic pain syndrome 01/17/2017 MEDICATION USE AGREEMENT 01/17/2017 Overview: 01/17/17 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 01/17/2017 Acquired hypothyroidism 12/12/2016 Depression with anxiety 08/19/2016 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 1 10/09/2015 Restrictive lung disease 12/10/2014 Allergic rhinitis 05/29/2014 Type 2 diabetes mellitus with hemoglobin A1c goal of less than 7.0% ([facility]) 09/26/2013 Overview: ICD-10 update of inactive term Vitamin D deficiency 09/26/2013 Lymphedema 03/11/2013 Intermittent asthma with reliever use up to twice per week 01/09/2013 Stasis dermatitis 05/07/2012 NG (nonalcoholic steatohepatitis) 04/12 Diverticulosis of colon 05/02/2012 HTN, goal below 140/90 03/27/2012 Chronic rhinitis 03/27/2012 Cerebral palsy (HCC) 01/24/2012 Spinal stenosis of lumbar region without neurogenic claudication 12/27/2010 DDD (degenerative disc disease), lumbar Dyslipidemia, goal LDL below 70 as of this encounter Resolved Problems Problem Noted Date Resolved Date Body mass index (BMI) of 50.0 to 59.9 in adult ( [facility]) 06/12/2017 12/19/2017 Overview: Per Obesity protocol #1 Atypical chest pain 08/19/2016 01/17/2017 Hepatic cirrhosis (HCC) 08/19/2016 03/28/20 17 Polyuria 08/09/2016 01/17/2017 Urinary frequency 08/09/2016 01/17/2017 Generalized OA 06/14/2016 03/28/2017 Body mass index (BMI) of 45.0-49.9 in adult ([facility] ) 12/09/2015 01/17/2017 Overview: bmi= 48.04 12/09/15 Need for shingles vaccine 12/09/20152015 Bilateral shoulder pain 08/25/2015 06/07/20 16 Bilateral shoulder pain 07/16/2015 09/27/20 16 Cerebral palsy (HCC) 04/23/2015 03/28/2017 Candidal vulvovaginitis 02/12/2015 06/07/20 16 Obesity, morbid (more than 1 00 lbs over ideal weight or BMI > 40) ([facility]) 02/09/2015 03/28/2017 THAD (obstructive sleep apnea) 02/09/2015 Leg weakness, bilateral 01/01/2015 06/07/20 16 Allergic conjunctivitis of both eyes 05/29/2014 07/02/2014 [...] Pruritic disorder 05/07/2012 07/02/2014 Hyperglycemia 05/02/2012 06/07/2016 Obstipation 05/02/2012 03/28/2017 Internal hemorrhoids 04/12/2012 07/02/2014 [...] pain 01/24/2012 01/17/2017 Genetic Sleep Disorder Research Other*[id number] 05/13/2011 04/07/2016 Obstructive sleep apnea 01/18/2011 12/27/19 [...] Telephone Encounter - Rajwinder Carter DO - 02/12/2018 7:41 AM EDT Previously signed. * Telephone Encounter - Michaelle Lindquist LPN - 02/06/2018 12:57 PM EDT Placed on Dr Carter's desk for review and signature. * Telephone Encounter - Dulce Call OSA - 02/06/2018 9:21 AM EDT Fax Needs sighned In Giovani lauren in this encounter Plan of Treatment Upcoming Encounters Date Type Specialty Care Team Description 02/13/2018 Office Visit Family Medicine Rajwinder Carter DO [address] [place] [address] [phone] 02/21/2018 Office Visit Gastroenterology Essence Chase PA-C [address] [place] [address] [phone] 02/23/2018 Office Visit Sleep Disorders Lanette Fields CRNP [address] [place] [address] [phone] 02/26/2018 Office Visit Gastroenterology Lyssa Stout CRNP [address] [place] [address] [phone] 03/12/2018 Pharmacy Pharmacy [facility] [address] [place] [address] [phone] 03/20/2018 Office Visit Dermatology Rachel Hill MD [address] [place] [address], [place] [address] [phone] 08/07/2018 Office Visit Sleep Disorders Lanette Fields CRNP [address] [facility] [place] [address] [phone] [place], Nurse Sleep Disorders [address] [facility] [place] [address] [phone] 12/19/2018 Office Visit Gynecology Obstetrics Irene Mujica CRNP [address] [facility] [place] [address] [phone] Health Maintenance Due Date Last Done Comments Yearly B-12 1955 DIABETES-EYE EXAM 1973 BREAST CANCER SCREENING DISCUSSION YEARLY AGES 40-75 01/18/2018 01/18/2017, 01/17/2017 (Discussed), 12/22/2015, Additional history exists *TSH FOR THYROID MEDICATION MONITORING YEARLY 02/04/2018 DIABETES-HGBA1C EVERY 6 MONTHS 04/10/2018 10/11/2017, 03/28/2017, 02/01/2017, Additional history exists DIABETES-LDL EVERY 12 MONTHS 10/11/2018 10/11/2017, 02/01/2017, 05/05/2016, Additional history exists DIABETES-URINE MICROALBUMIN EVERY 12 MONTHS 11/17/2018 11/17/2017, 11/01/2017, 10/18/2017, Additional history exists DIABETES-FOOT EXAM 12/26/2018 12/26/2017, 0 03/22/2017, 06/07/2016, Additional history exists PAP SMEAR-EVERY 3 YRS,AGES [...]
--- OUTSIDE RECORDS SUMMARY | 2023-05-10 23:29 | External Medical Summary | Summary of Care ---
Author Name Unknown Organization [place] [address] Phone Care Team Providers Care Abattoir Supervisor Name Role Phone Rajwinder Carter DO Primary Care Provider [phone] Reason for Visit * Reason Comments FORMS REQUEST Encounter Details Date Type Department Care Team Description 01/31/2018 Telephone [facility] [address] [place] [address] Rajwinder Carter DO [address] [place] [address] [phone] FORMS REQUEST Allergies Active Allergy Reactions Severity [...] Inhaler 1 06/29/2016 Active Vitamin D, Ergocalciferol, 38359 UNITS CapsuleIndications:Vi tamin D deficiency 1capsule every other week 8 Cap 6 09/27/2016 Active Blood Glucose Monitoring Suppl ([email or web address] VERIO) W/DEVICE KITIndications:Type 2 diabetes mellitus with hemoglobin A1c goal of less than 7.0% (HCC) Use as directed. Use daily to check blood sugars DX:E11.9 1 Kit 0 01/17/2017 Active Glucose Blood ([email or web address].comTOUCH ULTRA BLUE) STRPIndications:Type 2 diabetes mellitus with hemoglobin A1c goal of less than 7.0% (HCC) Use as directed 4 times a day as needed for Other (Use daily to check blood sugars DX:E11.9). Use up to four times a day as directed 100 Strip 11 01/17/2017 Active [email or web address].comTOUCH ULTRASOFT LANCETS MISCIndications:Type 2 diabetes mellitus with [...] 0 07/14/2017 Active furosemide (LASIX) 20 MG TabletIndications:Ericksonstiven ren,Stasis dermatitis One pill by mouth once [...] bedtime 30 Each 3 10/11/2017 Active nystatin 320162 UNIT/GM creamIndications:Cand idal vulvovaginitis Apply topically to [...] for Cough. 120 mL 0 12/19/2017 Active BD PEN NEEDLE MINI U/F 31G X 5 MM 0 12/27/2017 Active Dulaglutide (TRULICITY) 0.75 MG/0.5ML SOPN Inject [...] or BMI > 40) ([facility]) 02/09/2015 03/28/2017 THAD (obstructive sleep [...] pain 01/24/2012 01/17/2017 Genetic Sleep Disorder Research Other*[id number] 05/13/2011 04/07/2016 Obstructive sleep apnea 01/18/2011 12/27/19 [...] encounter Miscellaneous Notes * Telephone Encounter - Nancy Matute MD - 02/05/2018 6:14 PM EDT Signed. Nancy Matute MD * Telephone Encounter - Michaelle Lindquist LPN - 01/31/2018 10:42 AM EDT Home Care Delivery form placed on Dr Land desk for review and signature. in this encounter Plan of Treatment Upcoming Encounters Date Type Specialty Care Team Description 02/07/2018 Office Visit Gastroenterology Essence Chase PA-C [address] [place] [address] [phone] 02/13/2018 Office Visit Family Medicine Rajwinder Carter DO [address] [place] [address] [address] [phone] 02/23/2018 Office Visit Sleep Disorders Lanette Fields CRNP [address] [address] [phone] 02/26/2018 Office Visit Gastroenterology Lyssa Stout CRNP [address] [place] [address] [phone] 03/12/2018 Pharmacy Pharmacy [facility] [address] [place] [address], [place] [address] [phone] 03/20/2018 Office Visit Dermatology Rachel Hill MD [address] [place] [address], [place] [address] [phone] 08/07/2018 Office Visit Sleep Disorders Lanette Fields CRNP [address] [place] [address] [phone] Nurse Kentrell Sleep Disorders [address] [place] [address] [phone] 12/19/2018 Office Visit Gynecology Obstetrics Irene Mujica CRNP [address] [place] [address] [phone] Health Maintenance Due Date Last Done Comments [...]
--- OUTSIDE RECORDS SUMMARY | 2023-05-10 23:29 | External Medical Summary | Summary of Care ---
Author Name Unknown Organization [place] [address] Phone Care Team Providers Care Assistant Merchandise Manager Name Role Phone Rajwinder Carter DO Primary Care Provider [phone] Encounter Details Date Type Department Care Team Description 02/06/2018 Result Scan Unspecified Department <No scans attached> [...] Inhaler 1 06/29/2016 Active Vitamin D, Ergocalciferol, 12075 UNITS CapsuleIndications:Vi tamin D deficiency 1capsule every other week 8 Cap 6 09/27/2016 Active Blood Glucose Monitoring Suppl (Zura!TOUCH VERIO) W/DEVICE KITIndications:Type 2 diabetes mellitus with hemoglobin A1c goal of less than 7.0% (HCC) Use as directed. Use daily to check blood sugars DX:E11.9 1 Kit 0 01/17/2017 Active Glucose Blood (Zura!TOUCH ULTRA BLUE) STRPIndications:Type 2 diabetes mellitus with hemoglobin A1c goal of less than 7.0% (HCC) Use as directed 4 times a day as needed for Other (Use daily to check blood sugars DX:E11.9). Use up to four times a day as directed 100 Strip 11 01/17/2017 Active Zura!TOUCH ULTRASOFT LANCETS MISCIndications:Type 2 diabetes mellitus with [...] bedtime 30 Each 3 10/11/2017 Active nystatin 000008 UNIT/GM creamIndications:Cand idal vulvovaginitis Apply topically to affected area 2 times a day. To affacted area for two weeks. 15 g 2 10/12/2017 Active Blood Glucose Monitoring Suppl (newMentorUCH VERIO) w/Device KITIndications:Type 2 diabetes mellitus with hemoglobin A1c goal of less than 7.0% (HCC) Use up to 4 times a day E11.9 1 Kit 0 10/17/2017 Active gabapentin (NEURONTIN) 300 MG Capsule One pill in am, one midday, two in pm, as directed, increase up to 2 capsules 3 times daily 180 Cap 5 11/16/2017 Active Glucose Blood (Zura!TOUCH VERIO) STRP Use up to four times [...] less than 7.0% ([facility]) 09/26/2013 Overview: ICD-10 update of inactive term Vitamin D deficiency 09/26/2013 Lymphedema 03/11/2013 Intermittent asthma with reliever use up to twice per week 01/09/2013 Stasis dermatitis 05/07/2012 NG (nonalcoholic steatohepatitis) 04/12 Diverticulosis of colon 05/02/2012 HTN, goal below 140/90 03/27/2012 Chronic rhinitis 03/27/2012 Cerebral palsy ([facility]) 01/24/2012 Spinal stenosis of lumbar region without neurogenic claudication 12/27/2010 DDD (degenerative disc disease), lumbar Dyslipidemia, goal LDL below 70 as of this encounter Resolved Problems Problem Noted Date Resolved Date Body mass index (BMI) of 50.0 to 59.9 in adult ( [facility]) 06/12/2017 12/19/2017 Overview: Per Obesity protocol #1 Atypical chest pain 08/19/2016 01/17/2017 Hepatic cirrhosis ([facility]) 08/19/2016 03/28/20 17 Polyuria 08/09/2016 01/17/2017 Urinary frequency 08/09/2016 01/17/2017 Generalized OA 06/14/2016 03/28/2017 Body mass index (BMI) of 45.0-49.9 in adult ([facility] ) 12/09/2015 01/17/2017 Overview: bmi= 48.04 12/09/15 Need for shingles vaccine 12/09/20152015 Bilateral shoulder pain 08/25/2015 06/07/20 16 Bilateral shoulder pain 07/16/2015 06/07/20 16 Cerebral palsy ([facility]) 04/23/2015 03/28/2017 Candidal vulvovaginitis 02/12/2015 06/07/20 16 Obesity, morbid (more than 1 00 lbs over ideal weight or BMI > 40) ([facility]) 02/09/2015 03/28/2017 THAD (obstructive sleep [...] or BMI > 40) ([facility]) 10/28/2013 01/17/2017 Overview: bmi= 53.93 [...] or BMI > 40) ([facility]) 05/25/2012 01/17/2017 Overview: BMI= 55.27 [...] pain 01/24/2012 01/17/2017 Genetic Sleep Disorder Research Other*[id number] 05/13/2011 04/07/2016 Obstructive sleep apnea 01/18/2011 12/27/19 [...] or BMI > 40) ([facility]) 12/08/2009 07/02/2014 Overview: Per Obesity [...] Carter DO [address] [facility] [place] [address] [phone] 02/21/2018 Office Visit Gastroenterology Essence Chase PA-C [address] [place] [address] [phone] 02/23/2018 Office Visit Sleep Disorders Lanette Fields CRNP [address] [place] [address] [phone] 02/26/2018 Office Visit Gastroenterology Lyssa Stout CRNP [address] [place] [address] [phone] 03/12/2018 Pharmacy Pharmacy [facility] [address] [place] [address] [phone] 03/20/2018 Office Visit Dermatology Rachel Hill MD [address] [place] [address], [place] [address] [phone] 08/07/2018 Office Visit Sleep Disorders Lanette Fields CRNP [address] [place] [address] [address] [phone] Kentrell Nurse Sleep Disorders [address] [place] [address] [phone] 12/19/2018 Office Visit Gynecology Obstetrics [place], AZK White [address] [place] [address] [phone] Health Maintenance Due Date Last Done Comments [...] this encounter Results * OUTSIDE LAB RESULTS (02/06/2018) in this encounter
--- OUTSIDE RECORDS SUMMARY | 2023-05-10 23:29 | External Medical Summary | Summary of Care ---
Author Name Unknown Organization [facility] [place] [address] Phone Care Team Providers Care Certified Physician Assistant Name Role Phone Rajwinder Carter Primary Care Provider [phone] Reason for Visit * Reason Comments TEST RESULTS Encounter Details Date Type Department Care Team Description 01/22/[address] [facility] Gynecology/Obstetrics [address] [facility] [place] [address] Irene Mujica CRNP [address] [facility] [place] [address] [phone] TEST RESULTS Allergies Active Allergy Reactions Severity [...] Inhaler 1 06/29/2016 Active Vitamin D, Ergocalciferol, 58487 UNITS CapsuleIndications:Vi tamin D deficiency 1capsule every other week 8 Cap 6 09/27/2016 Active Blood Glucose Monitoring Suppl (ONETOUCH VERIO) W/DEVICE KITIndications:Type 2 diabetes mellitus with hemoglobin A1c goal of less than 7.0% (HCC) Use as directed. Use daily to check blood sugars DX:E11.9 1 Kit 0 01/17/2017 Active Glucose Blood (CasetextTOUCH ULTRA BLUE) STRPIndications:Type 2 diabetes mellitus with hemoglobin A1c goal of less than 7.0% (HCC) Use as directed 4 times a day as needed for Other (Use daily to check blood sugars DX:E11.9). Use up to four times a day as directed 100 Strip 11 01/17/2017 Active CasetextTOUCH ULTRASOFT LANCETS MISCIndications:Type 2 diabetes mellitus with [...] bedtime 30 Each 3 10/11/2017 Active nystatin 999089 UNIT/GM creamIndications:Cand idal vulvovaginitis Apply topically to [...] of less than 7.0% ([facility]) Take 1 Tab by mouth [...] for Pain. 60 Tab 0 01/15/2018 Active as of this encounter Active Problems [...] 140/90 03/27/2012 Chronic rhinitis 03/27/2012 Cerebral palsy ([facility]) 01/24/2012 Spinal stenosis of lumbar region without neurogenic claudication 12/27/2010 DDD (degenerative disc disease), lumbar Dyslipidemia, goal LDL below 70 as of this encounter Resolved Problems Problem Noted Date Resolved Date Body mass index (BMI) of 50.0 to 59.9 in adult ( [facility]) 06/12/2017 12/19/2017 Overview: Per Obesity protocol #1 Atypical chest pain 08/19/2016 01/17/2017 Hepatic cirrhosis ([facility]) 08/19/2016 03/28/20 [...] pain 01/24/2012 01/17/2017 Genetic Sleep Disorder Research Other*[id number] 05/13/2011 04/07/2016 Obstructive sleep apnea 01/18/2011 12/27/19 [...] abnormalities seen. Call with any further bleeding. in this encounter Plan of Treatment Upcoming Encounters Date Type Specialty Care Team Description 02/13/2018 Office Visit Family Medicine Rajwinder Carter DO [address] [place] [facility] [place] [address] [phone] 02/21/2018 Office Visit [facility]ology Essence Chase [facility] [place] [address] [phone] 02/23/2018 Office Visit [facility] [address] [phone] 02/26/2018 Office [facility]ology [facility] [place] [address] [phone] 03/12/2018 Pharmacy Pharmacy [facility] [address] [place] [address] [phone] 03/20/2018 Office Visit Dermatology Rachel Hill MD [address] [place] [address], [place] [address] [phone] 08/07/2018 Office Visit Sleep Disorders Lanette Fields CRNP [address] [place] [address] [phone] Nurse Kentrell Sleep Disorders [address] [place] [address] [address] [phone] 12/19/2018 Office Visit Gynecology Obstetrics Irene Mujica CRNP [address] [place] [address] [phone] Health Maintenance Due Date Last Done Comments [...] 02/06/2019 02/06/2018, 11/17/2017, 11/01/2017, Additional history exists PAP SMEAR-EVERY 3 YRS,AGES [...]
--- OUTSIDE RECORDS SUMMARY | 2023-05-10 23:29 | External Medical Summary | Summary of Care ---
Author Name Unknown Organization [place] [address] Phone Care Team Providers Care Senior Underwriter Name Role Phone JohnRajwinder fortune Belen MORENO Primary Care Provider [phone] Reason for Visit * Reason Comments Dosage Adjustment In Person (Anticoag Cl inic) DIABETES FOLLOW-UP Encounter Details Date Type Department Care Team Description 01/29/2018 Pharmacy Pharmacy, [address] [address] [facility] [address] [place] [address] [phone] Type 2 diabetes mellitus with hemoglobin A1c goal of less than 7.0% ([facility])* Allergies Active Allergy Reactions Severity [...] Inhaler 1 06/29/2016 Active Vitamin D, Ergocalciferol, 94097 UNITS CapsuleIndications: Vitamin D deficiency 1capsule every other week 8 Cap 6 09/27/2016 Active Blood Glucose Monitoring Suppl (ONETOUCH VERIO) W/DEVICE KITIndications:Type 2 diabetes mellitus with hemoglobin A1c goal of less than 7.0% (HCC) Use as directed. Use daily to check blood sugars DX:E11.9 1 Kit 0 01/17/2017 Active Glucose Blood (ONETOUCH ULTRA BLUE) STRPIndications:Typ e 2 diabetes mellitus with hemoglobin A1c goal of less than 7.0% (HCC) Use as directed 4 times a day as needed for Other (Use daily to check blood sugars DX:E11.9). Use up to four times a day as directed 100 Strip 11 01/17/2017 Active ONETOUCH ULTRASOFT LANCETS MISCIndications:Typ e [...] bedtime 30 Each 3 10/11/2017 Active nystatin 637673 UNIT/GM creamIndications:Ca ndidal vulvovaginitis Apply topically to affected area 2 times a day. To affacted area for two weeks. 15 g 2 10/12/2017 Active Blood Glucose Monitoring Suppl (Swift ShiftTOUCH VERIO) w/Device KITIndications:Type 2 diabetes mellitus with [...] directed.DX:E11 .9 400 Strip 3 12/04/2017 Active PredniSONE (DELTASONE) 10 MG TabletIndications:B ronchitis, complicated Take 5 tabs for 2 days, 4 tabs for 2 days, 3 tabs for 2 days, 2 tabs for 2 days 1 tab for 2 days 30 Tab 0 12/19/2017 Active HYDROcodone-homatro pine (HYCODAN) 5-1.5 MG/5ML SYRPIndications:Sle ep [...] other meds) 30 Tab 5 01/10/2018 Active Hydrocodone-Acetami nophen (NORCO) 10-325 MG per [...] Pen Syringe Dosing Unit 3 01/29/2018 Active insulin glargine (LANTUS SOLOSTAR) 100 UNIT/ML SOPNIndications:Typ e 2 diabetes mellitus with hemoglobin A1c goal of less than 7.0% ([facility]) 20 units at bed time 5 Pre-filled Pen Syringe Dosing Unit 3 12/26/2017 01/30/20 18 Discontinued as of this encounter Active [...] pain 01/24/2012 01/17/2017 Genetic Sleep Disorder Research Other*[id number] 05/13/2011 04/07/2016 Obstructive sleep apnea 01/18/2011 12/27/19 [...] encounter Progress Notes * Shelli Osorio, [facility] - 01/29/2018 10:51 AM EDT Formatting of this note may be different from the original. Medication Therapy Disease Management Diabetes Interval History: Shaina Bustos is an 62 year old year old female returning to the [facility] Disease Management [facility] for a diabetes follow-up appointment. Blood glucose control since last visit: improved Medication intolerance: no Medication compliance: compliant Hospitalization or ED Utilization since last visit: no Hypoglycemia requiring assistance since last visit: no Symptoms of hyperglycemia or hypoglycemia present today: no Diet: unchanged Exercise: wheelchair bound Current Diabetes Medications: Trulicity 0.75mg once weekly Lantus 20 units once daily Metformin 1000mg twice daily Self-Monitoring Blood Glucose Review: Patient currently tests blood glucose 3 or 4 time(s) daily Pre AM meal Pre Lunch Pre PM meal Bedtime Average 154 197 163 191 Hi 182 247 184 257 Lo 125 125 125 161 Range 57 122 59 96 Hypoglycemia: 1. Do you know what the symptoms of hypoglycemia are? Yes 2. How often can you tell by your symptoms if your blood sugar is low? Often 3. In a typical week, how many times will your blood sugar go below 70 mg/dL? Never Patient Active Problem List Diagnosis Code Spinal stenosis of lumbar region without neurogenic claudication M48.061 Cerebral palsy (HCC) G80.9 HTN, goal below 140/90 I10 Chronic rhinitis J31.0 NG (nonalcoholic steatohepatitis) K75.81 Diverticulosis of colon K57.30 Stasis dermatitis I87.2 DDD (degenerative disc disease), lumbar M51.36 Intermittent asthma with reliever use up to twice per week J45.20 Lymphedema I89.0 Type 2 diabetes mellitus with hemoglobin A1c goal of less than 7.0% ([facility]) E11.9 Vitamin D deficiency E55.9 Allergic rhinitis J30.9 Restrictive lung disease J98.4 Dyslipidemia, goal LDL below 70 E78.5 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 R39.81 Depression with anxiety F41.8 Acquired hypothyroidism E03.9 Chronic pain syndrome G89.4 MEDICATION USE AGREEMENT EF1508 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 30 Tab 5 atorvaSTATin (LIPITOR) 40 MG Tablet Take 1 Tab by mouth at bedtime. 90 Tab 1 Azelastine HCl (ASTELIN) 0.1 % nasal spray Administer 2 Sprays into each nostril 2 times a day. 1 Bottle 11 BD PEN NEEDLE MINI U/F 31G X 5 MM 0 BETAMETHASONE VALERATE 0.1 % EX CREA apply to affected area twice daily, as needed 30 g 1 Blood Glucose Monitoring Suppl (AlleyWatch) W/DEVICE KIT Use as directed. Use daily to check blood sugars DX:E11.9 1 Kit 0 Blood Glucose Monitoring Suppl (AlleyWatch) w/Device KIT Use up to 4 times a day E11.9 1 Kit 0 busPIRone (BUSPAR) 10 MG Tablet 0 CENTRUM SILVER PO TABS 1 tab daily 1 Tab 0 cyclobenzaprine (FLEXERIL) 10 MG Tablet Take 1 Tab by mouth at bedtime. 30 Tab 0 Dulaglutide (TRULICITY) 0.75 MG/0.5ML SOPN Inject 1 syringeful once weekly 4 Pre-filled Pen SyringeDosing Unit 5 escitalopram (LEXAPRO) 10 MG Tablet Take 15 Tabs by mouth daily. 0 fexofenadine (BERNARDA) 180 MG Tablet One pill by mouth once a day as needed for allergies 30 Tab 11 fluticasone (FLONASE) 50 MCG/ACT nasal spray Administer 2 Sprays into each nostril daily. 1 Inhaler5 furosemide (LASIX) 20 MG Tablet One pill [...] mouth 3 timesa day. 1 Cap 0 Glucose Blood (eeGeoUCH ULTRA BLUE) STRP Use as directed 4 times a day as needed for Other (Use daily to check blood sugars DX:E11.9). Use up to four times a day as directed 100 Strip 11 Glucose Blood (eeGeoUCH VERIO) STRP Use up to four times a day as directed.DX:E11.9 400 Strip 3 Hydrocodone-Acetaminophen (NORCO) 10-325 MG per tablet Take 1 Tab by mouth 2 times a day as needed for Pain. 60 Tab 0 HYDROcodone-homatropine (HYCODAN) 5-1.5 MG/5ML SYRP Take 5 mL by mouth at bedtime as needed for Cough. 120 mL 0 insulin glargine (LANTUS SOLOSTAR) 100 UNIT/ML SOPN 20 units at bed time 5 Pre- filled Pen Syringe Dosing Unit 3 Insulin Pen Needle 31G X 6 MM MISC Use with Lantus Solostar at bedtime 30 Each 3 levothyroxine (LEVOXYL) 100 MCG Tablet Take 1 Tab by mouth daily. (at least 30 min prior to breakfast or other meds) 30 Tab 5 levothyroxine (LEVOXYL) 88 MCG Tablet Take 1 Tab by mouth daily. (at least 30 min prior to breakfast or other meds) 30 Tab 5 MetFORMIN (GLUCOPHAGE) 1000 MG Tablet Take 1 Tab by mouth 2 times a day. With food. 60 Tab 5 NEBULIZER KORTNEY as directed 1 0 nystatin (NYSTOP) powder Apply topically to affected area 3 times a day. Sprinkle over affected area. 1 Bottle 1 nystatin 293061 UNIT/GM cream Apply topically to affected area 2 times a day. To affacted area for two weeks. 15 g 2 OCEAN NASAL SPRAY 0.65 % NA SOLN [...] 11 potassium chloride ER 10 MEQ TBCR Take 1 Tab by mouth 2 times a day. With food. 60 Tab 5 PredniSONE (DELTASONE) 10 MG Tablet Take 5 tabs for 2 days, 4 tabs for 2 days, 3 tabs for 2 days, 2tabs for 2 days 1 tab for 2 days 30 Tab 0 traZODone (DESYREL) 50 MG Tablet Take 1 Tab by mouth at bedtime. 30 Tab 5 Vitamin D, Ergocalciferol, 17161 UNITS Capsule 1capsule every other week 8 Cap 6 Objective: The ASCVD Risk score (Sami BROOKLYN Jr, et al., 2013) failed to calculate for the following reasons: The valid total cholesterol range is 130 to 320 mg/dL Estimated body mass index is 51.26 kg/(m^2) as calculated from the following: Height as of 12/08/17: 1.499 m (4' 11"). Weight as of 12/26/17: 115.1 kg (253 lb 12.8 oz). BP Readings from Last 3 Encounters: 12/26/17 122/78 12/19/17 128/80 12/08/17 124/70 No POC orders found HEMOGLOBIN, A1C(%) Lucio Dt/Tm Resulted Value Status 10/11/17 1:18P 10/11/17 6.9* FINAL 03/28/17 3:31P 03/28/17 6.6* FINAL 02/01/17 11:19A 02/01/17 6.9* FINAL MICROALBUMIN RATIO(mg/g creat) Lucio Dt/Tm Resulted [...] F ALT(U/L) Lucio Dt/Tm Resulted Value Status 03/28/17 3:31P 03/28/17 26 FINAL LDL (DIRECT MEASURE)(mg/dL) Lucio Dt/Tm Resulted Value Status 10/11/17 1:18P 10/11/17 57 FINAL Assessment & Plan: Glycemic control is stable but not at goal. Patient agreeable to adjust medications as noted below. Patient has been feeling well on Trulicity. No signs of ADR/GI intolerance. Patient denies hypoglycemia. Largest jump of BG level is from breakfast to lunch. Reviewed patient's breakfast meal. She states that she only has one piece of toast for an egg sandwich with cheese. She has occasional sausage. Reviewed the effects of fat on BG levels due to increased IR. Patient to increase Lantus to 24 units daily. Possible increase Trulicity with next appt. Patient is agreeable to SMBG 4 time(s) daily. Patient aware to contact clinic if any hypoglycemia before next visit. Reviewed rule of 15s. Diabetes Medications: Lantus 24 units daily Trulicity 0.75mg once weekly Metformin 1000mg twice daily Diabetes Health Maintenance: up to date Return to clinic: 6 week(s) Next Office Visit: No Future Appointments Jo Faulkner RPh, Pharm D, CACP, CDE Clinical Pharmacist Medication Therapy Disease Management 01/29/2018, 10:51 AM in this encounter Plan of Treatment Upcoming Encounters Date Type Specialty Care Team Description 02/07/2018 Office Visit Gastroenterology Essence Chase PA-C [address] [place] [address] [phone] 02/13/2018 Office Visit Family Medicine Rajwinder Carter DO [address] [place] [facility] [place] [address] [phone] 02/23/2018 Office Visit Sleep Disorders Lanette Fields CRNP [address] [facility] [place] [address] [phone] 02/26/2018 Office Visit Gastroenterology Lyssa Stout CRNP [address] [facility] [place] [address] [phone] 03/12/2018 Pharmacy Pharmacy [facility] [address] [place] [facility] [place] [address] [phone] 03/20/2018 Office Visit Dermatology Rachel Hill MD [address] [place] [address], [place] [address] [phone] 08/07/2018 Office Visit Sleep Disorders Lanette Fields CRNP [address] [facility] [place] [address] [phone] [place] Nurse Sleep Disorders [address] [facility] [place] [address] [phone] 12/19/2018 Office Visit Gynecology Obstetrics Irene Mujica CRNP [address] [facility] [place] [address] [phone] Health Maintenance Due Date Last Done Comments Yearly B-12 1955 DIABETES-EYE EXAM 1973 BREAST CANCER SCREENING DISCUSSION YEARLY AGES 40-75 01/18/2018 01/18/2017, 01/17/2017 (Discussed), 12/22/2015, Additional history exists DIABETES-HGBA1C EVERY 6 MONTHS 04/10/2018 10/11/2017, 03/28/2017, [...]
--- OUTSIDE RECORDS SUMMARY | 2023-05-10 23:29 | External Medical Summary ---
Author Name Unknown Address [address] [place] [address] Phone Organization K01:[facility] [address] [id number] Laboratory Report Ordering Provider Test Date Status JANE FLORES 02/13/2018 15:27:00 Final Observation Date Value Abnormality Reference Status BUN 02/13/2018 22:25 11 6-20 Fin al Creatinine 02/13/2018 22:25 0.7 0.5-1.0 Fi nal Performing Location [facility] [address] [facility] [address]
--- OUTSIDE RECORDS SUMMARY | 2023-05-10 23:29 | External Medical Summary | Summary of Care ---
Author Name Unknown Organization [place] [address] Phone Care Team Providers Care Chucking Lathe Operator Name Role Phone Rajwinder Carter DO Primary Care Provider [phone] Reason for Visit * Reason Comments FORMS REQUEST Encounter Details Date Type Department Care Team Description 01/26/2018 Telephone [facility] [address] [place] [address] Rajwinder Carter DO [address] [place] [address] [phone] FORMS REQUEST Allergies Active Allergy Reactions Severity [...] Inhaler 1 06/29/2016 Active Vitamin D, Ergocalciferol, 92214 UNITS CapsuleIndications: Vitamin D deficiency 1capsule every other week 8 Cap 6 09/27/2016 Active Blood Glucose Monitoring Suppl (fos4XTOUCH VERIO) W/DEVICE KITIndications:Type 2 diabetes mellitus with hemoglobin A1c goal of less than 7.0% (HCC) Use as directed. Use daily to check blood sugars DX:E11.9 1 Kit 0 01/17/2017 Active Glucose Blood (fos4XTOUCH ULTRA BLUE) STRPIndications:Typ e 2 diabetes mellitus [...] bedtime 30 Each 3 10/11/2017 Active nystatin 115367 UNIT/GM creamIndications:Ca ndidal vulvovaginitis Apply topically to [...] A1c goal of less than 7.0% (HCC) 20 units at bed time 5 Pre-filled [...] 7.0% ([facility]) 09/26/2013 Overview: ICD-10 update of inactive term [...] to 59.9 in adult ( [facility]) 06/12/2017 12/19/2017 Overview: Per Obesity protocol #1 [...] 07/16/2015 06/07/20 16 Cerebral palsy ([facility]) 04/23/2015 03/28/2017 Candidal vulvovaginitis 02/12/2015 06/07/20 16 Obesity, morbid (more than 1 00 lbs over ideal weight or BMI > 40) ([facility]) 02/09/2015 03/28/2017 TAHD (obstructive sleep apnea) 02/09/2015 Leg weakness, [...] 40) ([facility]) 10/28/2013 01/17/2017 Overview: bmi= 53.93 10/28/13 Sleep [...] 40) ([facility]) 05/25/2012 01/17/2017 Overview: BMI= 55.27 05/25/12 Impacted [...] pain 01/24/2012 01/17/2017 Genetic Sleep Disorder Research Other*[id number] 05/13/2011 04/07/2016 Obstructive sleep apnea 01/18/2011 12/27/19 [...] Telephone Encounter - Nancy Matute MD - 01/29/2018 12:05 PM EDT Signed. Nancy Matute MD * Telephone Encounter - Michaelle Lindquist LPN - 01/26/2018 10:40 AM EDT Home Care Delivered form placed on Dr Land desk for review and signature. in this encounter Plan of Treatment Upcoming Encounters Date Type Specialty Care Team Description 02/07/2018 Office Visit Gastroenterology Essence Chase PA-C [address] [place] [address] [phone] 02/13/2018 Office Visit Family Medicine Rajwinder Carter DO [address] [place] [address] [phone] 02/23/2018 Office Visit Sleep Disorders Lanette Fields CRNP [address] [place] [address] [phone] 02/26/2018 Office Visit Gastroenterology Lyssa Stout CRNP [address] [place] [address] [phone] 03/12/2018 Pharmacy Pharmacy [facility] [address] [place] [address] [phone] 03/20/2018 Office Visit Dermatology Rachel Hill MD [address] [place] [address], [place] [address] [phone] 08/07/2018 Office Visit [facility] [address] [facility] [address] [phone] [place] Nurse [facility] [address] [facility] [address] [phone] 12/19/2018 Office Visit Gynecology Obstetrics [facility]ujica [facility] [address] [facility] [place] [address] [phone] Health Maintenance Due Date Last Done Comments [...]
--- OUTSIDE RECORDS SUMMARY | 2023-05-10 23:29 | External Medical Summary | Summary of Care ---
Author Name Unknown Organization [place] [address] Phone Care Team Providers Care Progressive Care Unit Registered Nurse Name Role Phone Nancy Matute MD Primary Care Provider [phone] Encounter Details Date Type Department Care Team Description 01/19/2018 Result Scan Unspecified Department <No scans attached> [...] Inhaler 1 06/29/2016 Active Vitamin D, Ergocalciferol, 83665 UNITS CapsuleIndications:Vi tamin D deficiency 1capsule every other week 8 Cap 6 09/27/2016 Active Blood Glucose Monitoring Suppl (Affinium PharmaceuticalsTOUCH VERIO) W/DEVICE KITIndications:Type 2 diabetes mellitus with hemoglobin A1c goal of less than 7.0% (HCC) Use as directed. Use daily to check blood sugars DX:E11.9 1 Kit 0 01/17/2017 Active Glucose Blood (Affinium PharmaceuticalsTOUCH ULTRA BLUE) STRPIndications:Type 2 diabetes mellitus with hemoglobin A1c goal of less than 7.0% (HCC) Use as directed 4 times a day as needed for Other (Use daily to check blood sugars DX:E11.9). Use up to four times a day as directed 100 Strip 11 01/17/2017 Active Affinium PharmaceuticalsTOUCH ULTRASOFT LANCETS MISCIndications:Type 2 diabetes mellitus with [...] bedtime 30 Each 3 10/11/2017 Active nystatin 200110 UNIT/GM creamIndications:Cand idal vulvovaginitis Apply topically to affected area 2 times a day. To affacted area for two weeks. 15 g 2 10/12/2017 Active Blood Glucose Monitoring Suppl (FashioholicUCH VERIO) w/Device KITIndications:Type 2 diabetes mellitus with hemoglobin A1c goal of less than 7.0% (HCC) Use up to 4 times a day E11.9 1 Kit 0 10/17/2017 Active gabapentin (NEURONTIN) 300 MG Capsule One pill in am, one midday, two in pm, as directed, increase up to 2 capsules 3 times daily 180 Cap 5 11/16/2017 Active Glucose Blood (Affinium PharmaceuticalsTOUCH VERIO) STRP Use up to four times [...] for Cough. 120 mL 0 12/19/2017 Active insulin glargine (LANTUS SOLOSTAR) 100 UNIT/ML SOPNIndications:Type 2 diabetes mellitus with hemoglobin A1c goal of less than 7.0% ([facility]) 20 units at bed time 5 Pre-filled Pen Syringe Dosing Unit 3 12/26/2017 Active BD PEN NEEDLE MINI U/F 31G [...] Atypical chest pain 08/19/2016 01/17/2017 Hepatic cirrhosis ([facility]) [...] pain 01/24/2012 01/17/2017 Genetic Sleep Disorder Research Other*[id number] 05/13/2011 04/07/2016 Obstructive sleep apnea 01/18/2011 12/27/19 [...] > 40) ([facility]) 12/08/2009 07/02/2014 Overview: Per Obesity Taxonomy [...] Encounters Date Type Specialty Care Team Description 01/29/2018 Pharmacy Pharmacy [facility] [address] [place], [place] [id number] 02/07/2018 Office Visit Gastroenterology Essence Chase [facility]C [address] [facility] [address] [phone] 02/13/2018 Office Visit Family Practice Nancy Matute MD [address] [place] [address] [phone] 02/23/2018 Office Visit Sleep Disorders [facility] [address] [facility] [address] [phone] 02/26/2018 Office Visit Gastroenterology Lys[facility] Stout [facility] [address] [facility] [address] [phone] 03/20/2018 Office Visit Dermatology Rachel Hill MD [address] [place] [address], [place] [address] [phone] 08/07/2018 Office Visit Sleep Disorders [facility] [address] [facility] [address] [phone] , Nurse Sleep Disorders [address] [facility] [place] [address] [phone] 12/19/2018 Office Visit Gynecology Obstetrics Irene Mujica CRNP [address] [place] [address] [phone] Health Maintenance Due Date Last Done Comments [...] this encounter Results * OUTSIDE LAB RESULTS (01/19/2018) in this encounter
--- OUTSIDE RECORDS SUMMARY | 2023-05-10 23:29 | External Medical Summary | Summary of Care ---
Author Name Unknown Organization [place] [address] Phone Care Team Providers Care Pcas Name Role Phone Unavailable Primary Care Provider Unavailabl e Encounter Details Date Type Department Care Team Description 02/12/[address] [facility] [place] [address] [place] [address] Rajwinder Carter, [address] [place] [address] [phone] [phone] Active Allergy Reactions Severity Noted Date [...] Inhaler 1 06/29/2016 Active Vitamin D, Ergocalciferol, 54617 UNITS CapsuleIndications:Vi tamin D deficiency 1capsule every other week 8 Cap 6 09/27/2016 Active Blood Glucose Monitoring Suppl (PadProofTOSHINE Medical Technologies VERIO) W/DEVICE KITIndications:Type 2 diabetes mellitus with hemoglobin A1c goal of less than 7.0% (HCC) Use as directed. Use daily to check blood sugars DX:E11.9 1 Kit 0 01/17/2017 Active Glucose Blood (PadProofTOUCH ULTRA BLUE) STRPIndications:Type 2 diabetes mellitus with [...] bedtime 30 Each 3 10/11/2017 Active nystatin 972954 UNIT/GM creamIndications:Cand idal vulvovaginitis Apply topically to [...] at bedtime. 30 Each 11 02/08/2018 Active as of this encounter Active Problems [...] than 7.0% ([facility]) 09/26/2013 Overview: ICD-10 update [...] 50.0 to 59.9 in adult ( [facility]) 06/12/2017 12/19/2017 Overview: Per Obesity protocol #1 Atypical chest pain 08/19/2016 01/17/2017 Hepatic cirrhosis (HCC) 08/19/2016 03/28/20 17 Polyuria 08/09/2016 01/17/2017 Urinary frequency 08/09/2016 01/17/2017 Generalized OA 06/14/2016 03/28/2017 Body mass index (BMI) of 45.0-49.9 in adult ([facility] ) 12/09/2015 01/17/2017 Overview: bmi= 48.04 12/09/15 Need for shingles vaccine 12/09/20152015 Bilateral shoulder pain 08/25/2015 06/07/20 16 Bilateral shoulder pain 07/16/2015 06/07/20 16 Cerebral palsy (HCC) 04/23/2015 03/28/2017 Candidal vulvovaginitis 02/12/2015 06/07/20 16 Obesity, morbid (more than 1 00 lbs over ideal weight or BMI > 40) ([facility]) 02/09/2015 03/28/2017 THAD (obstructive [...] > 40) ([facility]) 10/28/2013 01/17/2017 Overview: bmi= [...] > 40) ([facility]) 05/25/2012 01/17/2017 Overview: BMI= [...] pain 01/24/2012 01/17/2017 Genetic Sleep Disorder Research Other*[id number] 05/13/2011 04/07/2016 Obstructive sleep apnea 01/18/2011 12/27/19 [...] Medicine Rajwinder Carter DO [address] [place] [address] [phone] 02/21/2018 Office [facility] [place] [address] [phone] 02/23/2018 Office Visit Sleep Disorders [facility] [place] [address] [phone] 02/26/2018 Office [facility]ology [facility] [place] [address] [phone] 03/12/2018 Pharmacy Pharmacy [facility] [address] [facility] [place] [address] [phone] 03/20/2018 Office Visit Dermatology Rachel Hill MD [address] [place] [address], [place] [address] [phone] 08/07/2018 Office Visit Sleep Disorders Lanette Fields CRNP [address] [place] [address] [phone] [place] Nurse Sleep Disorders [address] [place] [address] [phone] 12/19/2018 Office Visit Gynecology Obstetrics Irene Mujica CRNP [address] [place] [address] Pending Results Name Priority Associated Diagnoses Date/Ti me CHEMISTRY-OUTSIDE Routine 02/06/2018 12:00 AM EDT Health Maintenance Due Date [...]
--- OUTSIDE RECORDS SUMMARY | 2023-05-10 23:29 | External Medical Summary | Summary of Care ---
Author Name Unknown Organization [place] [address] Phone Care Team Providers Care Mortgage Underwriter Name Role Phone Rajwinder Carter Primary Care Provider [phone] Encounter Details Date Type Department Care Team Description 02/06/2018 Scan Encounter Unspecified Department <No scans attached> [...] Inhaler 1 06/29/2016 Active Vitamin D, Ergocalciferol, 25924 UNITS CapsuleIndications:Vi tamin D deficiency 1capsule every other week 8 Cap 6 09/27/2016 Active Blood Glucose Monitoring Suppl (SolarusTOUCH VERIO) W/DEVICE KITIndications:Type 2 diabetes mellitus with hemoglobin A1c goal of less than 7.0% (HCC) Use as directed. Use daily to check blood sugars DX:E11.9 1 Kit 0 01/17/2017 Active Glucose Blood (SolarusTOUCH ULTRA BLUE) STRPIndications:Type 2 diabetes mellitus with hemoglobin A1c goal of less than 7.0% (HCC) Use as directed 4 times a day as needed for Other (Use daily to check blood sugars DX:E11.9). Use up to four times a day as directed 100 Strip 11 01/17/2017 Active SolarusTOUCH ULTRASOFT LANCETS MISCIndications:Type 2 diabetes mellitus with [...] bedtime 30 Each 3 10/11/2017 Active nystatin 319348 UNIT/GM creamIndications:Cand idal vulvovaginitis Apply topically to affected area 2 times a day. To affacted area for two weeks. 15 g 2 10/12/2017 Active Blood Glucose Monitoring Suppl (Zuu OnlnineUCH VERIO) w/Device KITIndications:Type 2 diabetes mellitus with hemoglobin A1c goal of less than 7.0% (HCC) Use up to 4 times a day E11.9 1 Kit 0 10/17/2017 Active gabapentin (NEURONTIN) 300 MG Capsule One pill in am, one midday, two in pm, as directed, increase up to 2 capsules 3 times daily 180 Cap 5 11/16/2017 Active Glucose Blood (SolarusTOUCH VERIO) STRP Use up to four times [...] Atypical chest pain 08/19/2016 01/17/2017 Hepatic cirrhosis ([facility]) [...] pain 01/24/2012 01/17/2017 Genetic Sleep Disorder Research Other*[id number] 05/13/2011 04/07/2016 Obstructive sleep apnea 01/18/2011 12/27/19 [...] PA-C [address] [place] [address] [phone] 02/13/2018 Office Visit Family Medicine Rajwinder Carter DO [address] [place] [facility] [place] [address] [phone] 02/23/2018 Office Visit Sleep Disorders Lanette Fields CRNP [address] [place] [address] [phone] 02/26/2018 Office Visit Gastroenterology Lyssa Stout CRNP [address] [place] [address] [phone] 03/12/2018 Pharmacy Pharmacy [facility] [address] [place] [facility] [place] [address] [phone] 03/20/2018 Office Visit Dermatology Rachel Hill MD [address] [place] [address], [place] [address] [phone] 08/07/2018 Office Visit Sleep Disorders Lanette Fields CRNP [address] [place] [address] [phone] Kentrell, Nurse Sleep Disorders [address] [place] [address] [phone] 12/19/2018 Office Visit Gynecology Obstetrics Irene Mujica CRNP [address] [place] [address] [phone] Health Maintenance Due Date Last Done Comments [...]
--- OUTSIDE RECORDS SUMMARY | 2023-05-10 23:29 | External Medical Summary ---
Author Name Unknown Address [address] [id number] Phone Organization K01:[facility] [address] [id number] Laboratory Report Ordering Provider Test Date Status JANE FLORES 02/13/2018 15:27:00 Final Observation Date Value Abnormality Reference Status Vitamin B12 02/13/2018 23:14 019 [id number] F inal Performing Location [address] [address]
--- OUTSIDE RECORDS SUMMARY | 2023-05-10 23:30 | External Medical Summary | Summary of Care ---
Author Name Unknown Organization [place] [address] Phone Care Team Providers Care Jailkeeper Name Role Phone Nancy Roberts MD Primary Care Provider [phone] Reason for Visit * Reason Comments MEDICATION REFILL Encounter Details Date Type Department Care Team Description 01/10/2018 Refill [facility] [address] [place] [address] Nancy Roberts MD [address] [place] [address] [phone] Allergies Active Allergy Reactions Severity Noted Date [...] Azelastine HCl (ASTELIN) 0.1 % nasal sprayIndications:Otal viis, bilateral,Dysfunction of Eustachian tube, bilateral,Chronic rhinitis Administer [...] Inhaler 1 06/29/2016 Active Vitamin D, Ergocalciferol, 72448 UNITS CapsuleIndications:Vi tamin D deficiency 1capsule every other week 8 Cap 6 09/27/2016 Active potassium chloride ER 10 MEQ TBCRIndications:Hypok alemia Take 1 Tab by mouth 2 times a day. With food. 60 Tab 5 01/06/2017 Active Blood Glucose Monitoring Suppl (ONETOUCH VERIO) W/DEVICE KITIndications:Type 2 diabetes mellitus with hemoglobin A1c goal of less than 7.0% (HCC) Use as directed. Use daily to check blood sugars DX:E11.9 1 Kit 0 01/17/2017 Active Glucose Blood (ONETOUCH ULTRA BLUE) STRPIndications:Type 2 diabetes mellitus with [...] (BUSPAR) 10 MG Tablet 0 02/14/2017 Active MetFORMIN (GLUCOPHAGE) 1000 MG TabletIndications:Typ e 2 diabetes mellitus with hemoglobin A1c goal of less than 7.0% (HCC) Take 1 Tab by mouth 2 times a day. With food. 60 Tab 5 04/17/2017 Active traZODone (DESYREL) 50 MG TabletIndications:Sle ep disturbances take 1 tablet by mouth at bedtime 30 Tab 5 05/17/2017 Active levothyroxine (LEVOXYL) 100 MCG Tablet Take 1 Tab by mouth daily. (at least 30 min prior to breakfast or other meds) 30 Tab 5 06/20/2017 Active escitalopram (LEXAPRO) 10 MG Tablet Take 15 Tabs by mouth daily. 0 07/14/2017 Active furosemide (LASIX) 20 MG TabletIndications:Erickson ma,Stasis dermatitis One pill by mouth once a day, as needed for edema 30 Tab 5 07/19/2017 Active omeprazole (PRILOSEC) 20 MG CPDR Take 1 Cap by mouth daily. 90 Cap 1 07/19/2017 Active fexofenadine (BERNARDA) 180 MG TabletIndications:All [...] bedtime 30 Each 3 10/11/2017 Active nystatin 987518 UNIT/GM creamIndications:Cand idal vulvovaginitis Apply topically to affected area 2 times a day. To affacted area for two weeks. 15 g 2 10/12/2017 Active Blood Glucose Monitoring Suppl (ONETOUCH VERIO) w/Device KITIndications:Type 2 diabetes mellitus with hemoglobin A1c goal of less than 7.0% ([facility]) Use up to 4 times a day E11.9 1 Kit 0 10/17/2017 Active gabapentin (NEURONTIN) 300 MG Capsule One pill in am, one midday, two in pm, as directed, increase up to 2 capsules 3 times daily 180 Cap 5 11/16/2017 Active Glucose Blood (ONETOUCH VERIO) STRP Use up to four times a day as directed.DX:E11. 9 400 Strip 3 12/04/2017 Active Hydrocodone-Acetamino phen (NORCO) 10-325 MG per tabletIndications:Spi nal stenosis of lumbar region without neurogenic claudication,DDD (degenerative disc disease), lumbar,MEDICATION USE AGREEMENT Take 1 Tab by mouth 2 times a day as needed for Pain. 60 Tab 0 12/11/2017 Active PredniSONE (DELTASONE) 10 MG TabletIndications:Bro nchitis, [...] less than 7.0% ([facility]) 20 units at bed time 5 Pre-filled Pen Syringe Dosing Unit 3 12/26/2017 Active BD PEN NEEDLE MINI U/F 31G X 5 MM 0 12/27/2017 Active Dulaglutide (TRULICITY) 0.75 MG/0.5ML SOPN Inject 1 syringeful once weekly 4 Pre-filled Pen Syringe Dosing Unit 5 01/01/2018 Active cyclobenzaprine (FLEXERIL) 10 MG Tablet Take 1 Tab by mouth at bedtime. 30 Tab 0 01/10/2018 Active as of this encounter Active [...] pain 01/24/2012 01/17/2017 Genetic Sleep Disorder Research Other*[id number] 05/13/2011 04/07/2016 Obstructive sleep apnea 01/18/2011 12/27/19 [...] Miscellaneous Notes * Telephone Encounter - Nancy Roberts MD - 01/10/2018 11:22 AM EDT Signed Prescriptions: Disp Refills cyclobenzaprine (FLEXERIL) 10 MG Tablet 30 Tab 0 Sig: Take 1 Tab by mouth at bedtime. Authorizing Provider: Nancy ROBERTS * Telephone Encounter - Naheed Owens OSA - 01/10/2018 11:10 AM EDT Formatting of this note may be different from the original. Pending Prescriptions: Disp Refills cyclobenzaprine (FLEXERIL) 10 MG Tablet 30 Tab 0 Sig: Take 1 Tab by mouth at bedtime. Last Office Visit: 12/26/2017 Next Office Visit: 02/13/2018 Scheduled Provider(s): Nancy Roberts MD If no future appointments scheduled, and last appointment is greater than a year ago, please schedule patient for a follow-up appointment Last date the medication was ordered: 09/08/2017 Patient Phone Numbers Labs: Lab Results Component Value Date/Time CREAT 0.91 11/19/2017 CREAT 0.7 10/11/2017 01:18 PM POTASSIUM 4.1 10/11/2017 01:18 PM TSH 0.01 (L) 02/01/2017 11:19 AM LDLCALC 57 05/05/2016 10:19 AM LDLDIRECT 57 10/11/2017 01:18 PM ALT 26 03/28/2017 03:31 PM HGBA1C 6.9 (H) 10/11/2017 01:18 PM Charleen Jiang Screed Operator Pharmacy Refill Call Center 01/10/2018,11:10 AM in this encounter Plan of Treatment Upcoming Encounters Date Type Specialty Care Team Description 01/11/2018 Procedure Only Endoscopy Janis Hatch DO [address] [facility] [place] [address] [phone] 01/19/2018 Imaging Radiology [id number] [address] [facility] [place] [address] [phone] 01/23/2018 Office Visit Gastroenterology Gadiel Pathak MD [address] [place] [address] [phone] 01/29/2018 Pharmacy Pharmacy [facility] [address] [place] [address] [phone] 02/13/2018 Office Visit Family Practice Nancy Roberts MD [address] [place] [address] [phone] 02/23/2018 Office Visit Sleep Disorders Lanette Fields CRNP [address] [facility] [place] [address] [phone] 02/26/2018 Office Visit Gastroenterology Lyssa Stout CRNP [address] [facility] [place] [address] [phone] 03/20/2018 Office Visit Dermatology Rachel Hill MD [address] [place] [address], [place] [address] [phone] 08/07/2018 Office Visit Sleep Disorders Lanette Fields CRNP [address] [place] [address] [phone] Nurse Kentrell Sleep Disorders [address] [place] [address] [phone] 12/19/2018 Office Visit Gynecology Obstetrics Irene Mujica CRNP [address] [place] [address] Health Maintenance Due Date Last Done [...] Implants Not on fileas of this encounter Insurance Payer Benefit Plan / Group Subscriber ID Type Phone Address [facility] [id number] [place] [employer] [id number] [facility] [id number] as of this encounter
--- OUTSIDE RECORDS SUMMARY | 2023-05-10 23:30 | External Medical Summary | Summary of Care ---
Author Name Unknown Organization [place] [address] Phone Care Team Providers Care Hotel Receptionist Name Role Phone Nancy Matute MD Primary Care Provider [phone] Reason for Visit * Reason Comments FORMS REQUEST Encounter Details Date Type Department Care Team Description 01/22/2018 Telephone [facility] [address] [place] [address] Nancy Matute MD [address] [place] [address] [phone] FORMS REQUEST Allergies Active Allergy Reactions Severity [...] Inhaler 1 06/29/2016 Active Vitamin D, Ergocalciferol, 55768 UNITS CapsuleIndications:Vi tamin D deficiency 1capsule every other week 8 Cap 6 09/27/2016 Active Blood Glucose Monitoring Suppl (RuntasticTOARIO [employer] VERIO) W/DEVICE KITIndications:Type 2 diabetes mellitus with hemoglobin A1c goal of less than 7.0% (HCC) Use as directed. Use daily to check blood sugars DX:E11.9 1 Kit 0 01/17/2017 Active Glucose Blood (RuntasticTOUCH ULTRA BLUE) STRPIndications:Type 2 diabetes mellitus with hemoglobin A1c goal of less than 7.0% (HCC) Use as directed 4 times a day as needed for Other (Use daily to check blood sugars DX:E11.9). Use up to four times a day as directed 100 Strip 11 01/17/2017 Active RuntasticTOUCH ULTRASOFT LANCETS MISCIndications:Type 2 diabetes mellitus with [...] bedtime 30 Each 3 10/11/2017 Active nystatin 633318 UNIT/GM creamIndications:Cand idal vulvovaginitis Apply topically to [...] less than 7.0% ([facility]) 09/26/2013 Overview: ICD-10 update of inactive [...] to 59.9 in adult ( [facility]) 06/12/2017 12/19/2017 Overview: Per Obesity protocol #1 Atypical chest pain 08/19/2016 01/17/2017 Hepatic cirrhosis (HCC) 08/19/2016 03/28/20 17 Polyuria 08/09/2016 01/17/2017 Urinary frequency 08/09/2016 01/17/2017 Generalized OA 06/14/2016 03/28/2017 Body mass index (BMI) of 45.0-49.9 in adult ([facility] ) 12/09/2015 01/17/2017 Overview: bmi= 48.04 12/09/15 Need for shingles vaccine 12/09/20152015 Bilateral shoulder pain 08/25/2015 06/07/20 16 Bilateral shoulder pain 07/16/2015 09/27/20 16 Cerebral palsy (HCC) 04/23/2015 03/28/2017 Candidal vulvovaginitis 02/12/2015 06/07/20 16 Obesity, morbid (more than 1 00 lbs over ideal weight or BMI > 40) ([facility]) 02/09/2015 03/28/2017 THAD (obstructive sleep apnea) [...] BMI > 40) ([facility]) 10/28/2013 01/17/2017 Overview: bmi= 53.93 10/28/13 [...] BMI > 40) ([facility]) 05/25/2012 01/17/2017 Overview: BMI= 55.27 05/25/12 [...] pain 01/24/2012 01/17/2017 Genetic Sleep Disorder Research Other*[id number] 05/13/2011 04/07/2016 Obstructive sleep apnea 01/18/2011 12/27/19 [...] Telephone Encounter - Nancy Matute MD - 01/22/2018 12:52 PM EDT Noted. Nancy Matute MD * Telephone Encounter - Michaelle Lindquist LPN - 01/22/2018 10:15 AM EDT Placed on Dr Land desk for review . * Telephone Encounter - Lynsey Ferrari OSA - 01/22/2018 7:45 AM EDT Information on fall assessment from [facility] in Dr. Matute's forms bin in this encounter Plan of Treatment Upcoming Encounters Date Type Specialty Care Team Description 01/23/2018 Office Visit [facility] [address] [facility] [place] [address] [phone] 01/29/2018 Pharmacy Pharmacy [facility] [address] [place] [address] [phone] 02/13/2018 Office Visit Family Practice Nancy Matute MD [address] [place] [address] [phone] 02/23/2018 Office Visit Sleep Disorders Lanette Fields CRNP [address] [facility] [place] [address] [phone] 02/26/2018 Office Visit Gastroenterology Lyssa Stout CRNP [address] [place] [address] [phone] 03/20/2018 Office Visit Dermatology Rachel Hill MD [address] [place] [address], [place] [address] [phone] 08/07/2018 Office Visit Sleep Disorders Lanette Fields CRNP [address] [place] [address] [phone] Kent[place], Nurse Sleep Disorders [address] [place] [address] [phone] 12/19/2018 Office Visit Gynecology Obstetrics Irene Mujica CRNP [address] [place] [address] [phone] Health Maintenance Due Date Last Done Comments [...]
--- OUTSIDE RECORDS SUMMARY | 2023-05-10 23:30 | External Medical Summary | Summary of Care ---
Author Name Unknown Organization [facility] [place] [address] Phone Care Team Providers Care Sales Training Representative Name Role Phone Nancy Roberts MD Primary Care Provider [phone] Reason for Visit * Reason Comments MEDICATION REFILL Encounter Details Date Type Department Care Team Description 01/10/2018 Refill [facility] [address] [place] [address] Nancy Roberts MD [address] [place] [address] [phone] Allergies Active Allergy Reactions Severity Noted Date [...] Inhaler 1 06/29/2016 Active Vitamin D, Ergocalciferol, 70354 UNITS CapsuleIndications: Vitamin D deficiency 1capsule every other week 8 Cap 6 09/27/2016 Active Blood Glucose Monitoring Suppl (VIVATOUCH VERIO) W/DEVICE KITIndications:Type 2 diabetes mellitus with hemoglobin A1c goal of less than 7.0% (HCC) Use as directed. Use daily to check blood sugars DX:E11.9 1 Kit 0 01/17/2017 Active Glucose Blood (VIVATOUCH ULTRA BLUE) STRPIndications:Typ e 2 diabetes mellitus [...] bedtime 30 Each 3 10/11/2017 Active nystatin 979074 UNIT/GM creamIndications:Ca ndidal vulvovaginitis Apply topically to [...] directed.DX:E11 .9 400 Strip 3 12/04/2017 Active Hydrocodone-Acetami nophen (NORCO) 10-325 MG per tabletIndications:S jennifer stenosis of lumbar region without neurogenic claudication,DDD (degenerative disc disease), lumbar,MEDICATION USE AGREEMENT Take 1 Tab by mouth 2 times a day as needed for Pain. 60 Tab 0 12/11/2017 Active PredniSONE (DELTASONE) 10 MG TabletIndications:B ronchitis, [...] other meds) 30 Tab 5 01/10/2018 Active potassium chloride ER 10 MEQ TBCRIndications:Hyp okalemia Take 1 Tab by mouth 2 times a day. With food. 60 Tab 5 01/06/2017 01/11/20 18 Discontinued MetFORMIN (GLUCOPHAGE) 1000 MG TabletIndications:T ype 2 diabetes mellitus with hemoglobin A1c goal of less than 7.0% ([facility]) Take 1 Tab by mouth 2 times a day. With food. 60 Tab 5 04/17/2017 01/11/20 18 Discontinued traZODone (DESYREL) 50 MG TabletIndications:S leep disturbances take 1 tablet by mouth at bedtime 30 Tab 5 05/17/2017 01/11/20 18 Discontinued levothyroxine (LEVOXYL) 100 MCG Tablet Take 1 Tab by mouth daily. (at least 30 min prior to breakfast or other meds) 30 Tab 5 06/20/2017 01/11/20 18 Discontinued omeprazole (PRILOSEC) 20 MG CPDR Take 1 Cap by mouth daily. 90 Cap 1 07/19/2017 01/11/20 18 Discontinued as of this encounter Active [...] Atypical chest pain 08/19/2016 01/17/2017 Hepatic cirrhosis ([facility] ([facility]) 02/09/2015 03/28/2017 THAD (obstructive sleep apnea) 02/09/2015 [...] pain 01/24/2012 01/17/2017 Genetic Sleep Disorder Research Other*[id number] 05/13/2011 04/07/2016 Obstructive sleep apnea 01/18/2011 12/27/19 [...] 40) ([facility]) 12/08/2009 07/02/2014 Overview: Per Obesity Taxonomy [...] Encounter - Nancy Roberts MD - 01/10/2018 5:33 PM EDT Signed Prescriptions: Disp Refills levothyroxine (LEVOXYL) 100 MCG Tablet 30 Tab 5 Sig: Take 1 Tab by mouth daily. (at least 30 min prior to breakfast or other meds) Authorizing Provider: Nancy ROBERTS * Telephone Encounter - Aubrey Reis, [facility] - 01/10/2018 5:17 PM EDT Pending Prescriptions: Disp Refills levothyroxine (LEVOXYL) 100 MCG Tablet 30 Tab 5 Sig: Take 1 Tab by mouth daily. (at least 30 min prior to breakfast or other meds) * Telephone Encounter - Aubrey Reis, [facility] - 01/10/2018 5:17 PM EDT Unable to authorize proactive medication refills at this time. Patient did not meet protocol requirements. Patient's last TSH from 02/01/17 was low. Please approve if appropriate. Thanks, Aubrey Reis, R.Ph. Refill Pharmacist Refill Call [place] [phone] 01/10/2018,5:17 PM * Telephone Encounter - RadhadeuceMaría jurado, [facility] - 01/10/2018 2:32 PM EDT Formatting of this note may be different from the original. Pending Prescriptions: Disp Refills levothyroxine (LEVOXYL) 100 MCG Tablet 30 Tab 5 Sig: Take 1 Tab by mouth daily. (at least 30 min prior to breakfast or other meds) Last Office Visit: 12/26/2017 Next Office Visit: 02/13/2018 Scheduled Provider(s): Nancy Roberts MD If no future appointments scheduled, and last appointment is greater than a year ago, please schedule patient for a follow-up appointment Last date the medication was ordered: 06/20/2017 Patient Phone Numbers Labs: Lab Results Component Value Date/Time CREAT 0.91 11/19/2017 CREAT 0.7 10/11/2017 01:18 PM POTASSIUM 4.1 10/11/2017 01:18 PM TSH 0.01 (L) 02/01/2017 11:19 AM LDLCALC 57 05/05/2016 10:19 AM LDLDIRECT 57 10/11/2017 01:18 PM ALT 26 03/28/2017 03:31 PM HGBA1C 6.9 (H) 10/11/2017 01:18 PM in this encounter Plan of Treatment Upcoming Encounters Date Type Specialty Care Team Description 01/11/2018 Procedure Only Endoscopy Janis Hatch, [address] [facility] [place] [address] [phone] 01/19/2018 Imaging Radiology [id number] [address] [place] [address] [phone] 01/23/2018 Office Visit Gastroenterology Gadiel Pathak MD [address] [place] [address] [phone] 01/29/2018 Pharmacy Pharmacy [facility] [address] [place] [address] [phone] 02/13/2018 Office Visit Family Practice Nancy Roberts MD [address] [place] [address] [phone] 02/23/2018 Office Visit Sleep Disorders Lanette Fields CRNP [address] [place] [address] [phone] 02/26/2018 Office Visit Gastroenterology Lyssa Stout CRNP [address] [place] [address] [phone] 03/20/2018 Office Visit Dermatology Rachel Hill MD [address] [place] [address], [place] [address] [phone] 08/07/2018 Office Visit Sleep Disorders Lanette Fields CRNP [address] [place] [address] [phone] Kentrell, Nurse Sleep Disorders [address] [place] [address] [phone] 12/19/2018 Office Visit Gynecology Obstetrics Irene Mujica CRNP [address] [place] [address] [phone] Health Maintenance Due Date Last Done Comments [...] / Group Subscriber ID Type Phone Address [facility] [id number] [place] [employer] [id number] [facility] [id number] as of this encounter
--- OUTSIDE RECORDS SUMMARY | 2023-05-10 23:30 | External Medical Summary | Summary of Care ---
Author Name Unknown Organization [place] [address] Phone Care Team Providers Care Incubator Operator Name Role Phone Nancy Matute MD Primary Care Provider Reason for Visit * Reason Comments FORMS REQUEST Encounter Details Date Type Department Care Team Description 01/22/[address] [facility] [address] [place] [address] Nancy Matute MD [address] [place] [address] [phone] FORMS REQUEST Allergies Active Allergy Reactions Severity [...] Inhaler 1 06/29/2016 Active Vitamin D, Ergocalciferol, 97979 UNITS CapsuleIndications:Vi tamin D deficiency 1capsule every other week 8 Cap 6 09/27/2016 Active Blood Glucose Monitoring Suppl (Reviva PharmaceuticalsTOMedia Lantern VERIO) W/DEVICE KITIndications:Type 2 diabetes mellitus with hemoglobin A1c goal of less than 7.0% (HCC) Use as directed. Use daily to check blood sugars DX:E11.9 1 Kit 0 01/17/2017 Active Glucose Blood (Reviva PharmaceuticalsTOUCH ULTRA BLUE) STRPIndications:Type 2 diabetes mellitus with hemoglobin A1c goal of less than 7.0% (HCC) Use as directed 4 times a day as needed for Other (Use daily to check blood sugars DX:E11.9). Use up to four times a day as directed 100 Strip 11 01/17/2017 Active Reviva PharmaceuticalsTOUCH ULTRASOFT LANCETS MISCIndications:Type 2 diabetes mellitus [...] bedtime 30 Each 3 10/11/2017 Active nystatin 463370 UNIT/GM creamIndications:Cand idal vulvovaginitis Apply topically to [...] pain 01/24/2012 01/17/2017 Genetic Sleep Disorder Research Other*[id number] 05/13/2011 04/07/2016 Obstructive sleep apnea 01/18/2011 12/27/19 [...] Miscellaneous Notes * Telephone Encounter - Radha Wolfe THAD - 01/23/2018 9:05 AM EDT Pt calling in stating that the fax number she has for the form is [phone]. If you have anymorequestions feel free to call her. Thank you. * Telephone Encounter - Nancy Matute MD - 01/22/2018 12:52 PM EDT Noted. Nancy Matute MD * Telephone Encounter - Michaelle Lindquist LPN - 01/22/2018 10:15 AM EDT Placed on Dr Land desk for review . * Telephone Encounter - Lynsey Ferrari THAD - 01/22/2018 7:45 AM EDT Information on fall assessment from [employer] in Dr. Matute's forms bin in this encounter Plan of Treatment Upcoming Encounters Date Type Specialty Care Team Description 01/29/2018 Pharmacy [facility] [address] [id number] 02/07/2018 Office Visit Gastroenterology Essence Chase PA-C [address] [place] [address] [phone] 02/13/2018 Office Visit Family Practice Nancy Matute MD [address] [facility] [place] [address] [phone] 02/23/2018 Office Visit Sleep Disorders Lanette Fields CRNP [address] [place] [address] [phone] 02/26/2018 Office Visit Gastroenterology Lyssa Stout CRNP [address] [place] [address] [phone] 03/20/2018 Office Visit Dermatology Rachel Hill MD [address] [place] [address], [place] [address] [phone] 08/07/2018 Office Visit Sleep Disorders [facility] [address] [facility] [place] [address] [phone] [place], Nurse Sleep Disorders [address] [facility] [place] [address] [phone] 12/19/2018 Office Visit Gynecology Obstetrics Irene Mujica CRNP [address] [facility] [place] [address] [phone] Health Maintenance Due Date Last Done Comments [...]
--- OUTSIDE RECORDS SUMMARY | 2023-05-10 23:30 | External Medical Summary | Summary of Care ---
Author Name Unknown Organization [place] [address] Phone Care Team Providers Care Manager Pricing Name Role Phone Nancy Matute MD Primary Care Provider [phone] Reason for Visit * Reason Comments FORMS REQUEST Encounter Details Date Type Department Care Team Description 01/22/2018 Telephone [facility] [address] [place] [address] Nancy Matute MD [address] [place] [address] [phone] FORMS REQUEST Allergies Active Allergy Reactions Severity [...] Inhaler 1 06/29/2016 Active Vitamin D, Ergocalciferol, 86233 UNITS CapsuleIndications:Vi tamin D deficiency 1capsule every other week 8 Cap 6 09/27/2016 Active Blood Glucose Monitoring Suppl (ZolpyTOFactonomy VERIO) W/DEVICE KITIndications:Type 2 diabetes mellitus with hemoglobin A1c goal of less than 7.0% (HCC) Use as directed. Use daily to check blood sugars DX:E11.9 1 Kit 0 01/17/2017 Active Glucose Blood (ZolpyTOUCH ULTRA BLUE) STRPIndications:Type 2 diabetes mellitus with hemoglobin A1c goal of less than 7.0% (HCC) Use as directed 4 times a day as needed for Other (Use daily to check blood sugars DX:E11.9). Use up to four times a day as directed 100 Strip 11 01/17/2017 Active ZolpyTOUCH ULTRASOFT LANCETS MISCIndications:Type 2 diabetes mellitus with [...] bedtime 30 Each 3 10/11/2017 Active nystatin 223051 UNIT/GM creamIndications:Cand idal vulvovaginitis Apply topically to [...] pain 01/24/2012 01/17/2017 Genetic Sleep Disorder Research Other*[id number] 05/13/2011 04/07/2016 Obstructive sleep apnea 01/18/2011 12/27/19 [...] Telephone Encounter - Ludy Jara LPN - 01/23/2018 9:16 AM EDT Faxed * Telephone Encounter - Radha Wolfe OSA - 01/23/2018 9:05 AM EDT Pt calling in stating that the fax number she has for the form is [phone]. If you have anymorequestions feel free to [...] Specialty Care Team Description 01/29/2018 Pharmacy Pharmacy [place] [address] [facility] [place] [address] [phone] 02/07/2018 Office Visit Gastroenterology Essence Chase PA-C [address] [place] [address] [phone] 02/13/2018 Office Visit Family Practice Nancy Matute MD [address] [place] [address] [phone] 02/23/2018 Office Visit Sleep Disorders Lanette Fields CRNP [address] [facility] [place] [address] [phone] 02/26/2018 Office Visit Gastroenterology Lyssa Stout CRNP [address] [facility] [place] [address] [phone] 03/20/2018 Office Visit Dermatology Rachel Hill MD [address] [place] [address], [place] [address] [phone] 08/07/2018 Office Visit Sleep Disorders Lanette Fields CRNP [address] [facility] [place] [address] [phone] [place], Nurse Sleep Disorders [address] [place] [address] [phone] 12/19/2018 Office Visit Gynecology Obstetrics Irene Mujica CRNP 132 [facility] [place] [address] [phone] Health Maintenance Due Date Last Done Comments [...]
--- OUTSIDE RECORDS SUMMARY | 2023-05-10 23:30 | External Medical Summary | Summary of Care ---
Author Name Unknown Organization [place] [address] Phone Care Team Providers Care Food Checker Name Role Phone Nancy Roberts MD Primary Care Provider [phone] Reason for Visit * Reason Comments MEDICATION REFILL Encounter Details Date Type Department Care Team Description 01/15/2018 Refill [facility] [address] [place] [address] Nancy Roberts MD [address] [place] [address] [phone] Spinal stenosis of lumbar region without neurogenic [...] Inhaler 1 06/29/2016 Active Vitamin D, Ergocalciferol, 07156 UNITS CapsuleIndications: Vitamin D deficiency 1capsule every other week 8 Cap 6 09/27/2016 Active Blood Glucose Monitoring Suppl (ONETOUCH VERIO) W/DEVICE KITIndications:Type 2 diabetes mellitus with hemoglobin A1c goal of less than 7.0% (HCC) Use as directed. Use daily to check blood sugars DX:E11.9 1 Kit 0 01/17/2017 Active Glucose Blood (BlendagramTOUCH ULTRA BLUE) STRPIndications:Typ e 2 diabetes mellitus [...] bedtime 30 Each 3 10/11/2017 Active nystatin 073908 UNIT/GM creamIndications:Ca ndidal vulvovaginitis Apply topically to [...] 180 Cap 5 11/16/2017 Active Glucose Blood (BlendagramTOUCH VERIO) STRP Use up to four times [...] for Pain. 60 Tab 0 01/15/2018 Active Hydrocodone-Acetami nophen (NORCO) 10-325 MG per tabletIndications:S jennifer stenosis of lumbar region without neurogenic claudication,DDD (degenerative disc disease), lumbar,MEDICATION USE AGREEMENT Take 1 Tab by mouth 2 times a day as needed for Pain. 60 Tab 0 12/11/2017 01/16/20 18 Discontinued as of this encounter Active [...] than 7.0% ([facility]) 09/26/2013 Overview: ICD-10 update of [...] to 59.9 in adult ( [facility]) 06/12/2017 12/19/2017 Overview: Per Obesity protocol #1 Atypical chest pain 08/19/2016 01/17/2017 Hepatic cirrhosis (HCC) 08/19/2016 03/28/20 17 Polyuria 08/09/2016 01/17/2017 Urinary frequency 08/09/2016 01/17/2017 Generalized OA 06/14/2016 03/28/2017 Body mass index (BMI) of 45.0-49.9 in adult ([facility] ) 12/09/2015 01/17/2017 Overview: bmi= 48.04 12/09/15 Need for shingles vaccine 12/09/20152015 Bilateral shoulder pain 08/25/2015 06/07/20 16 Bilateral shoulder pain 07/16/2015 06/07/20 16 Cerebral palsy ([facility]) 04/23/2015 03/28/2017 Candidal vulvovaginitis 02/12/2015 06/07/20 16 Obesity, morbid (more than 1 00 lbs over ideal weight or BMI > 40) ([facility]) 02/09/2015 03/28/2017 THAD (obstructive sleep [...] > 40) ([facility]) 10/28/2013 01/17/2017 Overview: bmi= 53.93 [...] > 40) ([facility]) 05/25/2012 01/17/2017 Overview: BMI= 55.27 [...] pain 01/24/2012 01/17/2017 Genetic Sleep Disorder Research Other*[id number] 05/13/2011 04/07/2016 Obstructive sleep apnea 01/18/2011 12/27/19 [...] Telephone Encounter - Nancy Roberts MD - 01/15/2018 5:04 PM EDT Signed Prescriptions: Disp Refills Hydrocodone-Acetaminophen (NORCO) 10-325 M*60 Tab 0 Sig: Take 1 Tab by mouth 2 times a day as needed for Pain. Authorizing Provider: Nancy ROBERTS * Telephone Encounter - Aubrey Reis, [facility] - 01/15/2018 3:22 PM EDT I have reviewed the patients controlled substance dispensing history in the Prescription Drug Monitoring Program in compliance with the [facility] regulations before prescribing a controlled substance. PDMP checked on 01/15/2018. Patient requesting: [place], filled 12/11/17, for #60 for a 30 day supply. Other recent controlled medication fills: Hydromet syrup, filled 12/19/17, for #120ml for a 24 day supply. Medication due for refill: yes Please approve if appropriate. Thanks, Aubrey Reis, Elizabeth.Ph. Refill Pharmacist Refill Call Center [phone] 01/15/2018,3:23 PM * Telephone Encounter - Shanel Rain, laundry aide - 01/15/2018 10:57 AM EDT Formatting of this note may be different from the original. Pending Prescriptions: Disp Refills Hydrocodone-Acetaminophen (NORCO) 10-325 *60 Tab 0 Sig: Take 1 Tab by mouth 2 times a day as needed for Pain. Last Office Visit: 12/26/2017 Next Office Visit: 02/13/2018 Scheduled Provider(s): Nancy Roberts MD If no future appointments scheduled, and last appointment is greater than a year ago, please schedule patient for a follow-up appointment Last date the medication was ordered: 12/11/17 Patient Phone Numbers Labs: Lab Results Component Value Date/Time CREAT 0.91 11/19/2017 CREAT 0.7 10/11/2017 01:18 PM POTASSIUM 4.1 10/11/2017 01:18 PM TSH 0.01 (L) 02/01/2017 11:19 AM LDLCALC 57 05/05/2016 10:19 AM LDLDIRECT 57 10/11/2017 01:18 PM ALT 26 03/28/2017 03:31 PM HGBA1C 6.9 (H) 10/11/2017 01:18 PM in this encounter Plan of Treatment Upcoming Encounters Date Type Specialty Care Team Description 01/19/2018 Imaging Radiology 01/23/2018 Office Visit Gastroenterology Gadiel Pathak MD [address] [facility] [place] [address] [phone] 01/29/2018 Pharmacy Pharmacy [address] [address] [phone] 02/13/2018 Office Visit Family Practice Nancy Roberts MD [address] [place] [address] [phone] 02/23/2018 Office Visit Sleep Disorders Lanette Fields CRNP 132 [facility] [place] [address] [phone] 02/26/2018 Office Visit [facility]astroenterology [facility]out [facility] [place] [address] [phone] 03/20/2018 Office Visit Dermatology Rachel Hill MD [address] [place] [address] [place] [address] [phone] 08/07/2018 Office Visit Sleep Disorders Lanette Fields CRNP [address] [facility] [place] [address] [phone] [place] Nurse Sleep Disorders [address] [facility] [address] [phone] 12/19/2018 Office Visit Gynecology Obstetrics Irene Mujica CRNP 132 [facility] [place] [address] [phone] Health Maintenance Due Date Last Done Comments [...]
--- OUTSIDE RECORDS SUMMARY | 2023-05-10 23:30 | External Medical Summary | Summary of Care ---
Author Name Unknown Organization [place] [address] Phone Care Team Providers Care Box Sorter Name Role Phone Nancy Roberts MD Primary Care Provider [phone] Reason for Visit * Reason Comments MEDICATION REFILL Encounter Details Date Type Department Care Team Description 01/10/2018 Refill [facility] [address] [place] [address] Nancy Roberts MD [address] [place] [address] [phone] Encounter for long-term (current) use of medications*;Type 2 diabetes mellitus with hemoglobin A1c goal of less than 7.0% ([facility]);Hypokalemia;Sleep disturbances Allergies Active Allergy Reactions Severity Noted [...] Inhaler 1 06/29/2016 Active Vitamin D, Ergocalciferol, 79629 UNITS CapsuleIndications: Vitamin D deficiency 1capsule every other week 8 Cap 6 09/27/2016 Active Blood Glucose Monitoring Suppl (Kermdinger StudiosTOUCH VERIO) W/DEVICE KITIndications:Type 2 diabetes mellitus with hemoglobin A1c goal of less than 7.0% (HCC) Use as directed. Use daily to check blood sugars DX:E11.9 1 Kit 0 01/17/2017 Active Glucose Blood (Kermdinger StudiosTOUCH ULTRA BLUE) STRPIndications:Typ e 2 diabetes mellitus [...] bedtime 30 Each 3 10/11/2017 Active nystatin 129270 UNIT/GM creamIndications:Ca ndidal vulvovaginitis Apply topically to affected area 2 times a day. To affacted area for two weeks. 15 g 2 10/12/2017 Active Blood Glucose Monitoring Suppl (Unique MicroguidesUCH VERIO) w/Device KITIndications:Type 2 diabetes mellitus with [...] than 7.0% ([facility]) 20 units at bed time 5 Pre-filled [...] at bedtime. 30 Tab 0 01/10/2018 Active potassium chloride ER 10 MEQ [...] Atypical chest pain 08/19/2016 01/17/2017 Hepatic cirrhosis ([facility]) [...] BEHAVIORAL HEALTH) 10/28/2013 01/17/2017 Overview: bmi= 53.93 10/28/13 [...] > 40) ([facility]) 05/25/2012 01/17/2017 Overview: BMI= 55.27 05/25/12 [...] pain 01/24/2012 01/17/2017 Genetic Sleep Disorder Research Other*[id number] 05/13/2011 04/07/2016 Obstructive sleep apnea 01/18/2011 12/27/19 [...] encounter Miscellaneous Notes * Telephone Encounter - Aubrey Munguia [facility] - 01/10/2018 3:12 PM EDT Signed Prescriptions: Disp Refills MetFORMIN (GLUCOPHAGE) 1000 MG Tablet 60 Tab 5 Sig: Take 1 Tab by mouth 2 times a day. With food. Authorizing Provider: Nancy ROBERTS Ordering User: AUBREY MUNGUIA omeprazole (PRILOSEC) 20 MG CPDR 90 Cap 1 Sig: Take 1 Cap by mouth daily. Authorizing Provider: Nancy ROBERTS Ordering User: AUBREY MUNGUIA potassium chloride ER 10 MEQ TBCR 60 Tab 5 Sig: Take 1 Tab by mouth 2 times a day. With food. Authorizing Provider: Nancy ROBERTS Ordering User: AUBREY MUNGUIA traZODone (DESYREL) 50 MG Tablet 30 Tab 5 Sig: Take 1 Tab by mouth at bedtime. Authorizing Provider: Nancy ROBERTS Ordering User: AUBREY MUNGUIA * Telephone Encounter - Aubrey Munguia, [facility] - 01/10/2018 3:11 PM EDT Per refill protocol patient needs magnesium and vitamin B12 levels on file within the past 2 years while using PPIs. Lab work ordered. Thanks, Aubrey Munguia R.Ph. Refill Pharmacist Refill Call Center [phone] 01/10/2018,3:11 PM * Telephone Encounter - Naheed Owens [facility] - 01/10/2018 11:09 AM EDT Formatting of this note may be different from the original. Pending Prescriptions: Disp Refills MetFORMIN (GLUCOPHAGE) 1000 MG Tablet 60 Tab 5 Sig: Take 1 Tab by mouth 2 times a day. With food. omeprazole (PRILOSEC) 20 MG CPDR 90 Cap 1 Sig: Take 1 Cap by mouth daily. potassium chloride ER 10 MEQ TBCR 60 Tab 5 Sig: Take 1 Tab by mouth 2 times a day. With food. traZODone (DESYREL) 50 MG Tablet 30 Tab 5 Sig: Take 1 Tab by mouth at bedtime. Last Office Visit: 12/26/2017 Next Office Visit: 02/13/2018 Scheduled Provider(s): Nancy Roberts MD If no future appointments scheduled, and last appointment is greater than a year ago, please schedule patient for a follow-up appointment Last date the medication was ordered: 04/17/2017, 07/19/2017, 01/06/2017, 05/17/2017 Patient Phone Numbers Labs: Lab Results Component Value Date/Time CREAT 0.91 11/19/2017 CREAT 0.7 10/11/2017 01:18 PM POTASSIUM 4.1 10/11/2017 01:18 PM TSH 0.01 (L) 02/01/2017 11:19 AM LDLCALC 57 05/05/2016 10:19 AM LDLDIRECT 57 10/11/2017 01:18 PM ALT 26 03/28/2017 03:31 PM HGBA1C 6.9 (H) 10/11/2017 01:18 PM Charleen Jiang Activities [facility] Refill Call Center 01/10/2018,11:09 AM in this encounter Plan of Treatment Upcoming Encounters Date Type Specialty Care Team Description 01/19/2018 Imaging Radiology 01/23/2018 Office Visit Gastroenterology [facility] [address] [facility] [address] [phone] 01/29/2018 Pharmacy Pharmacy [facility] [address] [place] [facility] [place] [address] [phone] 02/13/2018 Office Visit Family Practice Nancy Roberts MD [address] [place] [address] [phone] 02/23/2018 Office Visit Sleep Disorders Lanette Fields [facility] [place] [address] [phone] 02/26/2018 Office Visit [facility]enterology [facility] [place] [address] [phone] 03/20/2018 Office Visit Dermatology Rachel Hlil MD [address] [place] [address], [place] [address] [phone] 08/07/2018 Office Visit Sleep Disorders Lanette Fields CRNP [address] [place] [address] [phone] Nurse Kentrell Sleep Disorders [address] [place] [address] [phone] 12/19/2018 Office Visit Gynecology Obstetrics Irene Mujica CRNP [address] [place] [address] [phone] Scheduled Tests Name Priority Associated Diagnoses Order S chedule VITAMIN B12 Routine Encounter for long-term (current) use of medications Expected: 02/13/2018 (Approximate), Expires: 01/10/2019 MAGNESIUM Routine Encounter for long-term (current) use of medications Expected: 02/13/2018 (Approximate), Expires: 01/10/2019 Health Maintenance Due Date Last Done Comments [...] fileas of this encounter Visit Diagnoses Diagnosis Encounter for long-term (cur rent) use of medications - Primary Encounter for long-term (current) use of other medications Type 2 diabetes mellitus wit h hemoglobin A1c goal of less than 7.0% (HCC) Hypokalemia Hypopotassemia Sleep disturbances Sleep disturbance, unspecified in this encounter
--- OUTSIDE RECORDS SUMMARY | 2023-05-10 23:30 | External Medical Summary | Summary of Care ---
Author Name Unknown Organization [place] [address] Phone Care Team Providers Care Plastics Fabricator Name Role Phone Nancy Matute MD Primary Care Provider [phone] Encounter Details Date Type Department Care Team Description 01/15/2018 Scan Encounter Unspecified Department <No scans attached> [...] Inhaler 1 06/29/2016 Active Vitamin D, Ergocalciferol, 30839 UNITS CapsuleIndications:Vi tamin D deficiency 1capsule every other week 8 Cap 6 09/27/2016 Active Blood Glucose Monitoring Suppl (GrapheneaTOUCH VERIO) W/DEVICE KITIndications:Type 2 diabetes mellitus with hemoglobin A1c goal of less than 7.0% (HCC) Use as directed. Use daily to check blood sugars DX:E11.9 1 Kit 0 01/17/2017 Active Glucose Blood (GrapheneaTOUCH ULTRA BLUE) STRPIndications:Type 2 diabetes mellitus with hemoglobin A1c goal of less than 7.0% (HCC) Use as directed 4 times a day as needed for Other (Use daily to check blood sugars DX:E11.9). Use up to four times a day as directed 100 Strip 11 01/17/2017 Active GrapheneaTOUCH ULTRASOFT LANCETS MISCIndications:Type 2 diabetes mellitus with [...] bedtime 30 Each 3 10/11/2017 Active nystatin 124501 UNIT/GM creamIndications:Cand idal vulvovaginitis Apply topically to affected area 2 times a day. To affacted area for two weeks. 15 g 2 10/12/2017 Active Blood Glucose Monitoring Suppl (eWiseUCH VERIO) w/Device KITIndications:Type 2 diabetes mellitus with hemoglobin A1c goal of less than 7.0% (HCC) Use up to 4 times a day E11.9 1 Kit 0 10/17/2017 Active gabapentin (NEURONTIN) 300 MG Capsule One pill in am, one midday, two in pm, as directed, increase up to 2 capsules 3 times daily 180 Cap 5 11/16/2017 Active Glucose Blood (GrapheneaTOUCH VERIO) STRP Use up to four times [...] than 7.0% ([facility]) 20 units at bed time 5 [...] than 7.0% ([facility]) Take 1 Tab by mouth 2 [...] pain 08/19/2016 01/17/2017 Hepatic cirrhosis ([facility]) [...] pain 01/24/2012 01/17/2017 Genetic Sleep Disorder Research Other*[id number] 05/13/2011 04/07/2016 Obstructive sleep apnea 01/18/2011 12/27/19 [...] Visit Gastroenterology Gadiel Pathak MD [address] [place] [address] [phone] 01/29/2018 Pharmacy Pharmacy [facility] [address] [place] [address] [phone] 02/13/2018 Office Visit Family Practice Nancy Matute MD [address] [place] [address] [phone] 02/23/2018 Office Visit Sleep Disorders [facility] [address] [facility] [address] [phone] 02/26/2018 Office Visit Gastroenterology Lyssa Stout [facility] [address] [facility] [address] [phone] 03/20/2018 Office Visit Dermatology Rachel Hill MD [address] [facility] [place] [address] [phone] 08/07/2018 Office Visit Sleep Disorders [facility] Fields [facility] [address] [facility] [place] [address] [phone] , Nurse Sleep Disorders [address] [facility] [place] [address] [phone] 12/19/2018 Office Visit Gynecology Obstetrics Irene Mujica CRNP [address] [place] [address] [phone] Health Maintenance Due Date Last Done Comments [...]
--- OUTSIDE RECORDS SUMMARY | 2023-05-10 23:30 | External Medical Summary | Summary of Care ---
Author Name Unknown Organization [place] [address] Phone Care Team Providers Care Stock Feeder Name Role Phone Nancy Matute MD Primary Care Provider Reason for Visit * Reason Comments ORDER REQUEST Encounter Details Date Type Department Care Team Description 01/18/2018 Telephone [facility] [address] [place] [address] Nancy Matute MD [address] [place] [address] [phone] ORDER REQUEST Allergies Active Allergy Reactions Severity [...] Inhaler 1 06/29/2016 Active Vitamin D, Ergocalciferol, 36150 UNITS CapsuleIndications:Vi tamin D deficiency 1capsule every other week 8 Cap 6 09/27/2016 Active Blood Glucose Monitoring Suppl (CopyRightNowTOezNetPay VERIO) W/DEVICE KITIndications:Type 2 diabetes mellitus with hemoglobin A1c goal of less than 7.0% (HCC) Use as directed. Use daily to check blood sugars DX:E11.9 1 Kit 0 01/17/2017 Active Glucose Blood (CopyRightNowTOUCH ULTRA BLUE) STRPIndications:Type 2 diabetes mellitus with hemoglobin A1c goal of less than 7.0% (HCC) Use as directed 4 times a day as needed for Other (Use daily to check blood sugars DX:E11.9). Use up to four times a day as directed 100 Strip 11 01/17/2017 Active CopyRightNowTOUCH ULTRASOFT LANCETS MISCIndications:Type 2 diabetes mellitus with [...] bedtime 30 Each 3 10/11/2017 Active nystatin 900881 UNIT/GM creamIndications:Cand idal vulvovaginitis Apply topically to [...] pain 01/24/2012 01/17/2017 Genetic Sleep Disorder Research Other*[id number] 05/13/2011 04/07/2016 Obstructive sleep apnea 01/18/2011 12/27/19 [...] Encounter - Ludy Jara LPN - 01/23/2018 9:47 AM EDT Se other message * Telephone Encounter - Ludy Jara LPN - 01/23/2018 8:55 AM EDT Pt will call back with another number * Telephone Encounter - Ludy Jara LPN - 01/23/2018 8:53 AM EDT Attempted to fax order. Fax number states not in service * Telephone Encounter - Gustavo Bautista, THAD - 01/23/2018 8:21 AM EDT Patient calling in stating the name on the forms needs to have attention to Dulce Angulo at [phone]. * Telephone Encounter - Alberta Shaw, THAD - 01/22/2018 3:48 PM EDT Patient states that the order would need to be faxed to [facility]. Please fax to [phone]. Please call patient with any questions. * Telephone Encounter - Zelda Fernandes, THAD - 01/18/2018 2:24 PM EDT Pt returned call and stated she is unsure what supplier she would use, and is not sure if her insurance would cover the equipment. Pt states she will speak to her insurance company and her social media intern and call the office to inform. * Telephone Encounter - Susan Rosales RN - 01/18/2018 2:20 PM EDT Left message on patient phone to return call to triage Need to know DME supplier Not sure insurance will pay for a fental of bedside table * Telephone Encounter - Carlee Hadley, THAD - 01/18/2018 11:07 AM EDT Pt calling in requesting an order for a table that is used in the hospital that goes underneath bedwith wheels on it. Pt stating she needs this to make it easier for her. Pt unsure of where she would like it faxed. Please advise. in this encounter Plan of Treatment Upcoming Encounters Date Type Specialty Care Team Description 01/29/2018 Pharmacy Pharmacy [facility] [address] [place] [address] [phone] 02/07/2018 Office Visit Gastroenterology Essence Chase PA-C [address] [facility] [place] [address] [phone] 02/13/2018 Office Visit Family Practice Nancy Matute MD [address] [place] [place] [address] [phone] 02/23/2018 Office Visit Sleep Disorders [facility] [place] [address] [phone] 02/26/2018 Office Visit Gastroenterology Lyssa Stout CRNP [address] [facility] [place] [address] [phone] 03/20/2018 Office Visit Dermatology Rachel Hill MD [address] [place] [address], [place] [address] [phone] 08/07/2018 Office Visit Sleep Disorders Lanette Fields CRNP [address] [place] [address] [phone] [place], Nurse Sleep Disorders [address] [place] [address] [phone] 12/19/2018 Office Visit Gynecology Obstetrics Irene Mujica CRNP [address] [facility] [place] [address] [phone] Health Maintenance Due Date Last Done Comments [...] or lumbosacral intervertebral disc Lymphedema Other lymphedema in this encounter
--- OUTSIDE RECORDS SUMMARY | 2023-05-10 23:30 | External Medical Summary | Summary of Care ---
Author Name Unknown Organization [place] [address] Phone Care Team Providers Care Crossword Puzzle Maker Name Role Phone Nancy Matute MD Primary Care Provider [phone] Encounter Details Date Type Department Care Team Description 01/19/2018 Scan Encounter Unspecified Department <No scans attached> [...] Inhaler 1 06/29/2016 Active Vitamin D, Ergocalciferol, 69468 UNITS CapsuleIndications:Vi tamin D deficiency 1capsule every other week 8 Cap 6 09/27/2016 Active Blood Glucose Monitoring Suppl (FriendsEATTOUCH VERIO) W/DEVICE KITIndications:Type 2 diabetes mellitus with hemoglobin A1c goal of less than 7.0% (HCC) Use as directed. Use daily to check blood sugars DX:E11.9 1 Kit 0 01/17/2017 Active Glucose Blood (FriendsEATTOUCH ULTRA BLUE) STRPIndications:Type 2 diabetes mellitus with hemoglobin A1c goal of less than 7.0% (HCC) Use as directed 4 times a day as needed for Other (Use daily to check blood sugars DX:E11.9). Use up to four times a day as directed 100 Strip 11 01/17/2017 Active FriendsEATTOUCH ULTRASOFT LANCETS MISCIndications:Type 2 diabetes mellitus with [...] bedtime 30 Each 3 10/11/2017 Active nystatin 203725 UNIT/GM creamIndications:Cand idal vulvovaginitis Apply topically to affected area 2 times a day. To affacted area for two weeks. 15 g 2 10/12/2017 Active Blood Glucose Monitoring Suppl (VirtuixUCH VERIO) w/Device KITIndications:Type 2 diabetes mellitus with hemoglobin A1c goal of less than 7.0% (HCC) Use up to 4 times a day E11.9 1 Kit 0 10/17/2017 Active gabapentin (NEURONTIN) 300 MG Capsule One pill in am, one midday, two in pm, as directed, increase up to 2 capsules 3 times daily 180 Cap 5 11/16/2017 Active Glucose Blood (FriendsEATTOUCH VERIO) STRP Use up to four times [...] less than 7.0% ([facility]) 20 units at bed time 5 [...] less than 7.0% ([facility]) Take 1 Tab by mouth 2 [...] Chronic rhinitis 03/27/2012 Cerebral palsy ([facility]) 01/24/2012 Spinal stenosis of lumbar region without neurogenic claudication 12/27/2010 DDD (degenerative disc disease), lumbar Dyslipidemia, goal LDL below 70 as of this encounter Resolved Problems Problem Noted Date Resolved Date Body mass index (BMI) of 50.0 to 59.9 in adult ( [facility]) 06/12/2017 12/19/2017 Overview: Per Obesity protocol #1 Atypical chest pain 08/19/2016 01/17/2017 Hepatic cirrhosis ([facility]) 08/19/2016 03/28/20 17 Polyuria 08/09/2016 01/17/2017 Urinary frequency 08/09/2016 01/17/2017 Generalized OA 06/14/2016 03/28/2017 Body mass index (BMI) of 45.0-49.9 in adult ([facility] ) 12/09/2015 01/17/2017 Overview: bmi= 48.04 12/09/15 Need for shingles vaccine 12/09/20152015 Bilateral shoulder pain 08/25/2015 06/07/20 16 Bilateral shoulder pain 07/16/2015 06/07/20 16 Cerebral palsy ([facility]) 04/23/2015 03/28/2017 Candidal vulvovaginitis 02/12/2015 06/07/20 [...] pain 01/24/2012 01/17/2017 Genetic Sleep Disorder Research Other*[id number] 05/13/2011 04/07/2016 Obstructive sleep apnea 01/18/2011 12/27/19 [...] BMI > 40) ([facility]) 12/08/2009 07/02/2014 Overview: Per Obesity Taxonomy [...] Specialty Care Team Description 01/29/2018 Pharmacy Pharmacy [facility] [address] [place], [place] [id number] 02/07/2018 Office Visit [facility]astroenterology [facility] [address] [phone] 02/13/2018 Office Visit Family Practice Nancy Matute MD [address] [place] [address] [phone] 02/23/2018 Office Visit Sleep Disorders [facility] [address] [facility] [address] [phone] 02/26/2018 Office Visit Gastroenterology Lyssa Stout CR[facility] [address] [facility] [address] [phone] 03/20/2018 Office Visit Dermatology Rachel Hill MD [address] [place] [address], [place] [address] [phone] 08/07/2018 Office Visit Sleep Disorders [facility]ette Fields CR[facility] [address] [facility] [place] [address] [phone] , Nurse Sleep Disorders [address] [facility] [place] [address] [phone] 12/19/2018 Office Visit Gynecology Obstetrics Irene Mujica CRNP [address] [place] [address] [phone] Health Maintenance Due Date Last Done Comments [...]
--- OUTSIDE RECORDS SUMMARY | 2023-05-10 23:31 | External Medical Summary | Summary of Care ---
Author Name Unknown Organization [place] [address] Phone Care Team Providers Care Lorry Weigher Name Role Phone Nnacy Matute MD Primary Care Provider [phone] Reason for Visit * Reason Comments TEST RESULTS Encounter Details Date Type Department Care Team Description 12/26/2017 Telephone [facility] [address] [place] [address] Nancy Matute MD [address] [place] [address] [phone] TEST RESULTS Allergies Active Allergy Reactions Severity [...] Inhaler 1 06/29/2016 Active Vitamin D, Ergocalciferol, 18441 UNITS CapsuleIndications:Vi tamin D deficiency 1capsule every other week 8 Cap 6 09/27/2016 Active potassium chloride ER 10 MEQ TBCRIndications:Hypok alemia Take 1 Tab by mouth 2 times a day. With food. 60 Tab 5 01/06/2017 Active Blood Glucose Monitoring Suppl (StudyBlueTOUCH VERIO) W/DEVICE KITIndications:Type 2 diabetes mellitus with hemoglobin A1c goal of less than 7.0% (HCC) Use as directed. Use daily to check blood sugars DX:E11.9 1 Kit 0 01/17/2017 Active Glucose Blood (StudyBlueTOUCH ULTRA BLUE) STRPIndications:Type 2 diabetes mellitus with [...] bedtime 30 Each 3 10/11/2017 Active nystatin 166772 UNIT/GM creamIndications:Cand idal vulvovaginitis Apply topically to affected area 2 times a day. To affacted area for two weeks. 15 g 2 10/12/2017 Active Blood Glucose Monitoring Suppl (ONETOUCH VERIO) w/Device KITIndications:Type 2 diabetes mellitus with hemoglobin A1c goal of less than 7.0% ([facility]) Use up to 4 times a day [...] for Cough. 120 mL 0 12/19/2017 Active as of this encounter Active Problems [...] 140/90 03/27/2012 Chronic rhinitis 03/27/2012 Cerebral palsy ([facility]) 01/24/2012 Spinal stenosis of lumbar region without neurogenic claudication 12/27/2010 DDD (degenerative disc disease), lumbar Dyslipidemia, goal LDL below 70 as of this encounter Resolved Problems Problem Noted Date Resolved Date Body mass index (BMI) of 50.0 to 59.9 in adult ( [facility]) 06/12/2017 12/19/2017 Overview: Per Obesity protocol #1 Atypical chest pain 08/19/2016 01/17/2017 Hepatic cirrhosis ([facility]) 08/19/2016 03/28/20 [...] pain 01/24/2012 01/17/2017 Genetic Sleep Disorder Research Other*[id number] 05/13/2011 04/07/2016 Obstructive sleep apnea 01/18/2011 12/27/19 [...] Telephone Encounter - Susan Rosales RN - 12/26/2017 10:33 AM EDT Patient has apt today with you at 1:20 * Telephone Encounter - Nancy Matute MD - 12/26/2017 10:29 AM EDT Please notify- Just received x-ray report. Chest x-ray- IMPRESSION: No acute cardiopulmonary process seen. Great! Nancy Matute MD in this encounter Plan of Treatment Upcoming Encounters Date Type Specialty Care Team Description 01/01/2018 Pharmacy Pharmacy [facility] [address] [place], [place] [id number] 01/11/2018 Procedure Only Endoscopy Janis Hatch DO [address] [place] [address] [phone] 01/19/2018 Imaging Radiology [facility] [address] [place] [address] [phone] 01/23/2018 Office Visit Gastroenterology Gadiel Pathak MD [address] [place] [address] [phone] 02/13/2018 Office Visit Family Practice Nancy Matute MD [address] [place], [place] [address] 02/23/2018 Office Visit Sleep Disorders Lanette Fields CRNP [address] [place] [address] [phone] 02/26/2018 Office Visit Gastroenterology Lyssa Stout CRNP [address] [facility] [address] [phone] 03/20/2018 Office Visit Dermatology Rachel Hill MD [address] [place] [address], [place] [address] [phone] 08/07/2018 Office Visit Sleep Disorders Lanette Fields CRNP 132 [facility] [place] [address] [phone] Nurse Kent[place] Sleep Disorders [address] [address] [phone] 12/19/2018 Office Visit Gynecology Obstetrics Irene Mujica CRNP [address] [facility] [place] [address] [phone] Health Maintenance Due Date Last Done Comments [...] / Group Subscriber ID Type Phone Address [facility] [id number] AETNA AETNA [facility] [id number] [facility] [id number] as of this encounter
--- OUTSIDE RECORDS SUMMARY | 2023-05-10 23:31 | External Medical Summary | Summary of Care ---
Author Name Unknown Organization [place] [address] Phone Care Team Providers Care Observation Nurse Name Role Phone Nancy Matute MD Primary Care Provider [phone] Encounter Details Date Type Department Care Team Description 12/21/2017 Scan Encounter Unspecified Department <No scans attached> [...] Inhaler 1 06/29/2016 Active Vitamin D, Ergocalciferol, 25453 UNITS CapsuleIndications:Vi tamin D deficiency 1capsule every other week 8 Cap 6 09/27/2016 Active potassium chloride ER 10 MEQ TBCRIndications:Hypok alemia Take 1 Tab by mouth 2 times a day. With food. 60 Tab 5 01/06/2017 Active Blood Glucose Monitoring Suppl (Bio-Key InternationalTOUCH VERIO) W/DEVICE KITIndications:Type 2 diabetes mellitus with hemoglobin A1c goal of less than 7.0% (HCC) Use as directed. Use daily to check blood sugars DX:E11.9 1 Kit 0 01/17/2017 Active Glucose Blood (Bio-Key InternationalTOUCH ULTRA BLUE) STRPIndications:Type 2 diabetes mellitus with hemoglobin A1c goal of less than 7.0% (HCC) Use as directed 4 times a day as needed for Other (Use daily to check blood sugars DX:E11.9). Use up to four times a day as directed 100 Strip 11 01/17/2017 Active Bio-Key InternationalTOUCH ULTRASOFT LANCETS MISCIndications:Type 2 diabetes mellitus with [...] nostril daily. 1 Inhaler 5 10/11/2017 Active insulin glargine (LANTUS SOLOSTAR) 100 UNIT/ML SOPNIndications:Type 2 diabetes mellitus with hemoglobin A1c goal of less than 7.0% (HCC) 10 units at bed time 5 Pre-filled Pen Syringe Dosing Unit 3 10/11/2017 Active Insulin Pen Needle 31G X 6 MM MISCIndications:Type 2 diabetes mellitus with hemoglobin A1c goal of less than 7.0% (HCC) Use with Lantus Solostar at bedtime 30 Each 3 10/11/2017 Active nystatin 266343 UNIT/GM creamIndications:Cand idal vulvovaginitis Apply topically to affected area 2 times a day. To affacted area for two weeks. 15 g 2 10/12/2017 Active Blood Glucose Monitoring Suppl ([employer]) w/Device KITIndications:Type 2 diabetes mellitus with hemoglobin A1c goal of less than 7.0% ([facility]) Use up to 4 times a day E11.9 1 Kit 0 10/17/2017 Active gabapentin (NEURONTIN) 300 MG Capsule One pill in am, one midday, two in pm, as directed, increase up to 2 capsules 3 times daily 180 Cap 5 11/16/2017 Active Glucose Blood (Bio-Key InternationalTOUCH VERIO) STRP Use up to four times a day as directed.DX:E11. 9 400 Strip 3 12/04/2017 Active Hydrocodone-Acetamino phen (NORCO) 10-325 MG per tabletIndications:Spi nal stenosis of lumbar region without neurogenic claudication,DDD (degenerative disc disease), lumbar,MEDICATION USE AGREEMENT Take 1 Tab by mouth 2 times a day as needed for Pain. 60 Tab 0 12/11/2017 Active azithromycin (ZITHROMAX Z-SUYAPA) 250 MG TabletIndications:Bro nchitis, complicated Take two tablets by mouth on first day, then 1 tablet daily until gone 6 Tab 0 12/19/2017 Active PredniSONE (DELTASONE) 10 MG TabletIndications:Bro nchitis, [...] this encounter Active Problems Problem Noted Date Cirrhosis of liver (HCC) 11/20/2017 Bladder tumor [...] ([facility]) 01/24/2012 Obstructive sleep apnea 01/18/2011 Overview: 08/18/11 -- BIPAP auto: max IPAP to 18, min EPAP 10. SD card in 3 months. 06/29/11 Auto BIPAP -- max IPAP 15, min EPAP 9 with pressure support of 4. AHP ICD-10 update of inactive term Spinal stenosis of lumbar region without neurogenic claudication 12/27/2010 DDD (degenerative disc disease), lumbar Dyslipidemia, goal LDL below 70 as of this encounter Resolved Problems Problem Noted Date Resolved Date Body mass index (BMI) of 50.0 to 59.9 in adult ( [facility]) 06/12/2017 12/19/2017 Overview: Per Obesity protocol #1 Atypical chest pain 08/19/2016 01/17/2017 Hepatic cirrhosis ([facility] ([facility]) 02/09/2015 03/28/2017 THAD (obstructive sleep apnea) 02/09/2015 [...] pain 01/24/2012 01/17/2017 Genetic Sleep Disorder Research Other*[id number] 05/13/2011 04/07/2016 Lumbosacral spondylosis 12/27/2010 05/25/20 12 Dyslipidemia, goal [...] Encounters Date Type Specialty Care Team Description 12/26/2017 Office Visit [facility] Nancy Matute MD [address] [place] [address] [phone] 01/01/2018 Pharmacy Pharmacy [facility] [address] [place], [place] [id number] 01/11/2018 Procedure Only Endoscopy Janis Hatch DO [address] [place] [address] [phone] 01/19/2018 Imaging Radiology [place] [address] [place] [address] [phone] 01/23/2018 Office Visit Gastroenterology Gadiel Pathak MD [address] [place], [place] [address] 02/13/2018 Office Visit [facility] Nancy Matute MD [address] [place] [address] [phone] 02/23/2018 Office Visit Sleep Disorders Lanette Fields CRNP [address] [place] [address] [phone] 02/26/2018 Office Visit Gastroenterology Lyssa Stout CRNP [address] [facility] [address] [phone] 03/20/2018 Office Visit Dermatology Rachel Hill MD [address] [place] [address] [place] [address] [phone] 08/07/2018 Office Visit Sleep Disorders Lanette Fields CRNP [address] [place] [address] [phone] Nurse Kentrell Sleep Disorders [address] [place] [address] [phone] 12/19/2018 Office Visit Gynecology Obstetrics Irene Mujica CRNP [address] [place] [address] [phone] Health Maintenance Due Date Last Done Comments Yearly B-12 1955 DIABETES-EYE EXAM 1973 BREAST CANCER SCREENING DISCUSSION YEARLY AGES 40-75 01/18/2018 01/18/2017, 01/17/2017 (Discussed), 12/22/2015, Additional history exists DIABETES-FOOT EXAM 03/22/2018 03/22/2017, 0 06/07/2016, 08/25/2015, Additional history exists DIABETES-HGBA1C EVERY 6 MONTHS 04/10/2018 10/11/2017, 03/28/2017, 02/01/2017, Additional history exists DIABETES-LDL EVERY 12 MONTHS 10/11/2018 10/11/2017, 02/01/2017, 05/05/2016, Additional history exists DIABETES-URINE MICROALBUMIN EVERY 12 MONTHS 11/17/2018 11/17/2017, 11/01/2017, 10/18/2017, Additional history exists PAP SMEAR-EVERY 3 YRS,AGES [...] / Group Subscriber ID Type Phone Address [facility] [id number] [employer]ETNA A[employer]NA [facility] [id number] [facility] [id number] as of this encounter
--- OUTSIDE RECORDS SUMMARY | 2023-05-10 23:31 | External Medical Summary | Summary of Care ---
Author Name Unknown Organization [place] [address] Phone Care Team Providers Care Mobile Sales Assistant Name Role Phone Nancy Matute MD Primary Care Provider [phone] Encounter Details Date Type Department Care Team Description 01/02/2018 Orders Only Outcomes Research Department [address] [place] [address] Lelia Munson CHRA MyCode Research Other*[id number] Allergies Active Allergy Reactions Severity Noted Date [...] Inhaler 1 06/29/2016 Active Vitamin D, Ergocalciferol, 33315 UNITS CapsuleIndications:Vi tamin D deficiency 1capsule every other week 8 Cap 6 09/27/2016 Active potassium chloride ER 10 MEQ TBCRIndications:Hypok alemia Take 1 Tab by mouth 2 times a day. With food. 60 Tab 5 01/06/2017 Active Blood Glucose Monitoring Suppl ([employer] Science PartnersTOUCH VERIO) W/DEVICE KITIndications:Type 2 diabetes mellitus with hemoglobin A1c goal of less than 7.0% (HCC) Use as directed. Use daily to check blood sugars DX:E11.9 1 Kit 0 01/17/2017 Active Glucose Blood ([employer] Life Science PartnersTOUCH ULTRA BLUE) STRPIndications:Type 2 diabetes mellitus with [...] Active albuterol-ipratropium (DUONEB) 2.5-0.5 MG/3ML nebulizer solutionIndications:A sta exacerbation Use 1 vial in nebulizer 180 [...] than 7.0% ([facility]) Use with Lantus Solostar at bedtime 30 Each 3 10/11/2017 Active nystatin 060500 UNIT/GM creamIndications:Cand idal vulvovaginitis Apply topically to affected area 2 times a day. To affacted area for two weeks. 15 g 2 10/12/2017 Active Blood Glucose Monitoring Suppl (ONETOUCH VERIO) w/Device KITIndications:Type 2 diabetes mellitus with hemoglobin A1c goal of less than 7.0% ([facility]) Use up to 4 times a day [...] less than 7.0% ([facility]) 20 units at bed time 5 Pre-filled Pen Syringe Dosing Unit 3 12/26/2017 Active BD PEN NEEDLE MINI U/F 31G X 5 MM 0 12/27/2017 Active Dulaglutide (TRULICITY) 0.75 MG/0.5ML SOPN Inject 1 syringeful once weekly 4 Pre-filled Pen Syringe Dosing Unit 5 01/01/2018 Active as of this encounter Active Problems [...] Atypical chest pain 08/19/2016 01/17/2017 Hepatic cirrhosis ([facility]) 08/19/2016 [...] pain 01/24/2012 01/17/2017 Genetic Sleep Disorder Research Other*[id number] 05/13/2011 04/07/2016 Obstructive sleep apnea 01/18/2011 12/27/19 [...] Procedure Only Endoscopy Janis Hatch DO 132 [facility] [place] [address] [phone] 01/19/2018 Imaging Radiology Gwus5 132 [facility] [place] [address] [phone] 01/23/2018 Office Visit Gastroenterology Gadiel Pathak MD [address] [place] [address] [phone] 01/29/2018 Pharmacy Pharmacy [facility] [address] [place] [address] [phone] 02/13/2018 Office Visit Family Practice Nancy Matute MD [address] [place] [address] [phone] 02/23/2018 Office Visit Sleep Disorders Lanette Fields CRNP 132 [facility] [place] [address] [phone] 02/26/2018 Office Visit Gastroenterology Lyssa Stout CRNP [address] [facility] [place] [address] [phone] 03/20/2018 Office Visit Dermatology Rachel Hill MD [address] [place] [address] [phone] 08/07/2018 Office Visit Sleep Disorders Lanette Fields CRNP 132 [facility] [place] [address] Nurse [facility] [address] [place] [address] 12/19/2018 Office Visit Gynecology Obstetrics Irene Mujica CRNP 132 [facility] [place] [address] Scheduled Tests Name Priority Associated Diagnoses Order S chedule MYCODE INITIAL ADULT Routine MyCode Research Other*[id number] Expected: 01/02/2018, Expires: 01/22/2019 Health Maintenance Due Date Last Done Comments [...] this encounter Visit Diagnoses Diagnosis MYCODE RESEARCH OTHER*[id number] in this encounter Insurance Payer Benefit Plan / Group Subscriber ID Type Phone Address [facility] [id number] AETNA [facility]NA [facility]ALTH [id number] [facility] [id number] as of this encounter
--- OUTSIDE RECORDS SUMMARY | 2023-05-10 23:31 | External Medical Summary | Summary of Care ---
Author Name Unknown Organization [place] [address] Phone Care Team Providers Care Spray Gun Repairer Name Role Phone Nancy Matute MD Primary Care Provider [phone] Encounter Details Date Type Department Care Team Description 12/21/2017 Result Scan Unspecified Department <No scans attached> [...] Inhaler 1 06/29/2016 Active Vitamin D, Ergocalciferol, 08857 UNITS CapsuleIndications:Vi tamin D deficiency 1capsule every other week 8 Cap 6 09/27/2016 Active potassium chloride ER 10 MEQ TBCRIndications:Hypok alemia Take 1 Tab by mouth 2 times a day. With food. 60 Tab 5 01/06/2017 Active Blood Glucose Monitoring Suppl (Molina HealthcareTOUCH VERIO) W/DEVICE KITIndications:Type 2 diabetes mellitus with hemoglobin A1c goal of less than 7.0% (HCC) Use as directed. Use daily to check blood sugars DX:E11.9 1 Kit 0 01/17/2017 Active Glucose Blood (Molina HealthcareTOUCH ULTRA BLUE) STRPIndications:Type 2 diabetes mellitus with hemoglobin A1c goal of less than 7.0% (HCC) Use as directed 4 times a day as needed for Other (Use daily to check blood sugars DX:E11.9). Use up to four times a day as directed 100 Strip 11 01/17/2017 Active Molina HealthcareTOUCH ULTRASOFT LANCETS MISCIndications:Type 2 diabetes mellitus with [...] bedtime 30 Each 3 10/11/2017 Active nystatin 288228 UNIT/GM creamIndications:Cand idal vulvovaginitis Apply topically to affected area 2 times a day. To affacted area for two weeks. 15 g 2 10/12/2017 Active Blood Glucose Monitoring Suppl ([employer]) w/Device KITIndications:Type 2 diabetes mellitus with hemoglobin A1c goal of less than 7.0% ([facility]) Use up to 4 times a day E11.9 1 Kit 0 10/17/2017 Active gabapentin (NEURONTIN) 300 MG Capsule One pill in am, one midday, two in pm, as directed, increase up to 2 capsules 3 times daily 180 Cap 5 11/16/2017 Active Glucose Blood (Molina HealthcareTOUCH VERIO) STRP Use up to four times [...] 03/27/2012 Cerebral palsy ([facility]) 01/24/2012 Obstructive sleep apnea 01/18/2011 Overview: 08/18/11 [...] Atypical chest pain 08/19/2016 01/17/2017 Hepatic cirrhosis ([facility]) 08/19/2016 03/28/20 [...] BMI > 40) ([facility]) 02/09/2015 03/28/2017 THAD (obstructive sleep apnea) 02/09/2015 [...] pain 01/24/2012 01/17/2017 Genetic Sleep Disorder Research Other*[id number] 05/13/2011 04/07/2016 Lumbosacral spondylosis 12/27/2010 05/25/20 12 [...] Specialty Care Team Description 12/26/2017 Office Visit [facility] Nancy Matute MD [address] [place] [address] [phone] 01/01/2018 Pharmacy Pharmacy [facility] [address] [place], [place] [id number] 01/11/2018 Procedure Only Endoscopy Janis Hatch DO 132 [facility] [place] [address] [phone] 01/19/2018 Imaging Radiology Gwus [address] [facility] [address] [phone] 01/23/2018 Office Visit Gastroenterology Gadiel Pathak MD [address] [place], [place] [address] 02/13/2018 Office Visit [facility] Nancy Matute MD [address] [place] [address] [phone] 02/23/2018 Office Visit Sleep Disorders Lanette Fields CRNP [address] [facility] [address] [phone] 02/26/2018 Office Visit Gastroenterology Lyssa Stout CRNP [address] [facility] [place] [address] [phone] 03/20/2018 Office Visit Dermatology Rachel Hill MD [address] [place] [address] [place] [address] [phone] 08/07/2018 Office Visit Sleep Disorders Lanette Fields CRNP [address] [place] [address] [phone] Nurse [facility] [address] [place] [address] [phone] 12/19/2018 Office Visit Gynecology Obstetrics Irene Mujica CRNP [address] [place] [address] [phone] Health Maintenance Due Date Last Done Comments [...] this encounter Results * OUTSIDE LAB RESULTS (12/21/2017) in this encounter Insurance Payer Benefit Plan / Group Subscriber ID Type Phone Address [facility] [id number] [employer] [id number] [facility] [id number] as of this encounter
--- OUTSIDE RECORDS SUMMARY | 2023-05-10 23:31 | External Medical Summary | Summary of Care ---
Author Name Unknown Organization [place] [address] Phone Care Team Providers Care Road Cutter Name Role Phone Nancy Matute MD Primary Care Provider [phone] Reason for Visit * Reason Comments Dosage Adjustment In Person (Anticoag Cl inic) Diabetes Education Encounter Details Date Type Department Care Team Description 01/01/2018 Pharmacy Pharmacy, [place] [address] [place] [address] [facility] [address] [place] [address] [phone] Type 2 diabetes mellitus with hemoglobin A1c [...] Inhaler 1 06/29/2016 Active Vitamin D, Ergocalciferol, 42218 UNITS CapsuleIndications:Vi tamin D deficiency 1capsule every [...] bedtime 30 Each 3 10/11/2017 Active nystatin 067259 UNIT/GM creamIndications:Cand idal vulvovaginitis Apply topically to affected area 2 times a day. To affacted area for two weeks. 15 g 2 10/12/2017 Active Blood Glucose Monitoring Suppl ([employer] VERIO) w/Device KITIndications:Type 2 diabetes mellitus with [...] goal of less than 7.0% ([facility]) 20 units at bed time 5 Pre-filled [...] or BMI > 40) ([facility]) 02/09/2015 03/28/2017 THAD (obstructive sleep apnea) [...] pain 01/24/2012 01/17/2017 Genetic Sleep Disorder Research Other*[id number] 05/13/2011 04/07/2016 Obstructive sleep apnea 01/18/2011 12/27/19 [...] encounter Progress Notes * Shelli Osorio, [facility] - 01/01/2018 2:56 PM EDT Formatting of this note may be different from the original. Medication Therapy Disease Management Diabetes History of Present Illness: Shaina Bustos is an 62 year old year old female who presents to the Medication Therapy Disease Management [facility] for an initial diabetes consult. Age of diabetes diagnosis: 58 Nature of diabetes diagnosis: hospitalization Clinical presentation at time of diagnosis: polydipsia Family history of diabetes: father Previous medication use: none History of hypoglycemia requiring assistance or hospitalization: none Microvascular complications: none Macrovascular complications: none Symptoms of hyperglycemia or hypoglycemia present today: no Diet: patient eats 3 meals per day Breakfast: egg with toast and glucerna Lunch: spam sandwich, applesauce, popcorn Dinner: spam sandwich with cheese Snacks/Beverages: sugar-free ice cream Exercise: none- due to cerebral palsy Current Diabetes Medications: Lantus 20 units at bedtime Metformin 1000mg twice daily Self-Monitoring Blood Glucose Review: Patient currently tests blood glucose 3 time(s) daily Pre AM meal Pre Lunch Pre PM meal Average 262 280 220 Hi 356 434 266 Lo 162 148 123 Range 194 286 143 Hypoglycemia: 1. 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 1 Bottle 11 BETAMETHASONE VALERATE 0.1 % EX CREA apply to affected area twice daily, as needed 30 g 1 Blood Glucose Monitoring Suppl ([employer]) W/DEVICE KIT Use as directed. Use daily to check blood sugars DX:E11.9 1 Kit 0 Blood Glucose Monitoring Suppl (PathfulUCH VERSmart Plate) w/Device KIT Use up to 4 times a day E11.9 1 Kit 0 busPIRone (BUSPAR) 10 MG Tablet 0 CENTRUM SILVER PO TABS 1 tab daily 1 Tab 0 escitalopram (LEXAPRO) 10 MG Tablet Take 15 [...] timesa day. 1 Cap 0 Glucose Blood (PathfulUCH ULTRA BLUE) STRP Use as directed 4 times a day as needed for Other (Use daily to check blood sugars DX:E11.9). Use up to four times a day as directed 100 Strip 11 Glucose Blood ([employer] VERIO) STRP Use up to four times [...] over affected area. 1 Bottle 1 nystatin 235533 UNIT/GM cream Apply topically to affected area [...] Tab 0 traZODone (DESYREL) 50 MG Tablet take 1 tablet by mouth at bedtime 30 Tab 5 Vitamin D, Ergocalciferol, 72712 UNITS Capsule 1capsule every other week 8 Cap 6 Objective: The ASCVD Risk score (Vinalhavenglenna BARAHONA Jr, et al., 2013) failed to calculate [...] Value Status 10/11/17 1:18P 10/11/17 6.9* FINAL 7/18/17 3:31P 03/28/17 6.6* FINAL 02/01/17 11:19A 02/01/17 [...] FINAL Assessment & Plan: Glycemic control is unstable and not at goal Patient agreeable to adjust medications as noted below. Lengthy discussion on diabetes pathophysiology, role of diet and macronutrients on blood glucose control and benefits of exercise. Taught carbohydrate homework and explained what information we can get from it to help us determineif patient can cover their meals and cover their basic metabolic needs. Patient states that she is trying to lose weight. Taught patient how to use Truilicity pen. Reviewed with patient individual steps to do to prepare Trulicity prior to use: washing hands; remove juarez end; place end against stomach, outer thigh or back of arm; dial pen from locked (red) to unlocked (green); press green button; wait for pen to injectand needle to snap back, then remove and throw away. Reviewed proper injection technique. Patient verbalized understanding and displayed successful technique. Also reviewed directions for a missed dose of the medication. Confirmed with patient no personal or family history of pancreatitis or thyroid cancer. Patient is agreeable to SMBG 4 time(s) daily. Patient aware to contact clinic if any hypoglycemia before next visit. Reviewed rule of 15s. Diabetes Medications: Trulicity 0.75mg once weekly Lantus 20 units once daily Metformin 1000mg twice daily Diabetes Health Maintenance: up to date Return to clinic: 4 week(s) Next Office Visit: No Future Appointments Jo Faulkner RP, Pharm D, CACP, CDE Clinical Pharmacist Medication Therapy Disease Management 01/01/2018, 2:57 PM in this encounter Plan of Treatment Upcoming Encounters Date Type Specialty Care Team Description 01/11/2018 Procedure Only Endoscopy Janis Hatch DO [address] [place] [address] [phone] 01/19/2018 Imaging Radiology Gwus5 [address] [place] [address] [phone] 01/23/2018 Office Visit Gastroenterology Gadiel Pathak MD [address] [facility] [place] [id number] 01/29/2018 Pharmacy Pharmacy [facility] [address] [place] [address] [phone] 02/13/2018 Office Visit Family Practice Nancy Matute MD [address] [place] [address] [phone] 02/23/2018 Office Visit Sleep Disorders Lanette Fields CRNP 132 [facility] [place] [address] [phone] 02/26/2018 Office Visit Gastroenterology Lyssa Stout CRNP [facility] [place] [address] [phone] 03/20/2018 Office Visit Dermatology Rachel Hill MD [address] [place] [address] [phone] 08/07/2018 Office Visit Sleep Disorders Lanette Fields CRNP 132 [facility] [place] [address] [phone] Kentrell Nurse Sleep Disorders 132 [facility] [place] [address] [phone] 12/19/2018 Office Visit Gynecology Obstetrics Irene Mujica CRNP [address] [facility] [place] [address] [phone] Health Maintenance Due Date Last Done Comments [...] 7.0% (HCC) - Primary in this encounter Insurance Payer Benefit Plan / Group Subscriber ID Type Phone Address [facility] [place] [id number] [employer] [id number] [facility] [id number] as of this encounter
--- OUTSIDE RECORDS SUMMARY | 2023-05-10 23:31 | External Medical Summary | Summary of Care ---
Author Name Unknown Organization [place] [address] Phone Care Team Providers Care Vegetable Inspector Name Role Phone Nancy Matute MD Primary Care Provider [phone] Encounter Details Date Type Department Care Team Description 01/09/2018 Result Scan Unspecified Department <No scans attached> [...] Inhaler 1 06/29/2016 Active Vitamin D, Ergocalciferol, 71111 UNITS CapsuleIndications:Vi tamin D deficiency 1capsule every other week 8 Cap 6 09/27/2016 Active potassium chloride ER 10 MEQ TBCRIndications:Hypok alemia Take 1 Tab by mouth 2 times a day. With food. 60 Tab 5 01/06/2017 Active Blood Glucose Monitoring Suppl ([employer] CoTOUCH VERIO) W/DEVICE KITIndications:Type 2 diabetes mellitus with hemoglobin A1c goal of less than 7.0% (HCC) Use as directed. Use daily to check blood sugars DX:E11.9 1 Kit 0 01/17/2017 Active Glucose Blood ([employer] CoTOUCH ULTRA BLUE) STRPIndications:Type 2 diabetes mellitus with [...] bedtime 30 Each 3 10/11/2017 Active nystatin 586066 UNIT/GM creamIndications:Cand idal vulvovaginitis Apply topically to affected area 2 times a day. To affacted area for two weeks. 15 g 2 10/12/2017 Active Blood Glucose Monitoring Suppl ([employer]ationIO) w/Device KITIndications:Type 2 diabetes mellitus with hemoglobin [...] than 7.0% ([facility]) 20 units at bed time [...] Atypical chest pain 08/19/2016 01/17/2017 Hepatic cirrhosis ([facility]) [...] 40) ([facility]) 02/09/2015 03/28/2017 THAD (obstructive sleep [...] pain 01/24/2012 01/17/2017 Genetic Sleep Disorder Research Other*[id number] 05/13/2011 04/07/2016 Obstructive sleep apnea 01/18/2011 12/27/19 [...] Team Description 01/11/2018 Procedure Only Endoscopy Janis Htach DO 132 [facility] [place] [address] [phone] 01/19/2018 Imaging Radiology Gwus5 [address] [place] [address] [phone] 01/23/2018 Office Visit Gastroenterology Gadiel Pathak MD [address] [place], [place] [address] 01/29/2018 Pharmacy Pharmacy [facility] [address] [place] [address] [phone] 02/13/2018 Office Visit Family Practice Nancy Matute MD [address] [place] [address] [phone] 02/23/2018 Office Visit Sleep Disorders Lanette Fields CRNP [address] [place] [address] [phone] 02/26/2018 Office Visit Gastroenterology Lyssa Stout CRNP [address] [place] [address] [phone] 03/20/2018 Office Visit Dermatology Rachel Hill MD [address] [place] [address], [place] [address] [phone] 08/07/2018 Office Visit Sleep Disorders Lanette Fields CRNP [address] [place] [address] [phone] Nurse [facility] [address] [place] [address] [phone] 12/19/2018 Office Visit Gynecology Obstetrics Irene Mujica CRNP [address] [place] [address] [phone] Health Maintenance Due Date Last Done Comments [...] this encounter Results * RADIOLOGY SCANNED RESULT (01/09/2018) in this encounter Insurance Payer Benefit Plan / Group Subscriber ID Type Phone Address [facility] [id number] [place] [employer]ETNA [employer] [id number] [facility] [id number] as of this encounter
--- OUTSIDE RECORDS SUMMARY | 2023-05-10 23:31 | External Medical Summary | Summary of Care ---
Author Name Unknown Organization [place] [address] Phone Care Team Providers Care Marshmallow Machine Operator Name Role Phone Nancy Matute MD Primary Care Provider [phone] Encounter Details Date Type Department Care Team Description 12/29/2017 Orders Only Endoscopy, [place] [address] [place] [facility] [address] Janis Hatch, DO [address] [place], [place] [id number] Portal hypertension (HCC)* Allergies Active Allergy Reactions Severity Noted [...] Inhaler 1 06/29/2016 Active Vitamin D, Ergocalciferol, 57243 UNITS CapsuleIndications:Vi tamin D deficiency 1capsule every [...] bedtime 30 Each 3 10/11/2017 Active nystatin 612111 UNIT/GM creamIndications:Cand idal vulvovaginitis Apply topically to affected area 2 times a day. To affacted area for two weeks. 15 g 2 10/12/2017 Active Blood Glucose Monitoring Suppl ([employer] VERIO) w/Device KITIndications:Type 2 diabetes mellitus with hemoglobin A1c goal of less than 7.0% ([facility]) Use up to 4 times a day E11.9 1 Kit 0 10/17/2017 Active gabapentin (NEURONTIN) 300 MG Capsule One pill in am, one midday, two in pm, as directed, increase up to 2 capsules 3 times daily 180 Cap 5 11/16/2017 Active Glucose Blood ([employer]TOUCH VERIO) STRP Use up to four times [...] less than 7.0% ([facility]) 20 units at bed time 5 Pre-filled Pen Syringe Dosing Unit 3 12/26/2017 Active as of this encounter Active Problems [...] Atypical chest pain 08/19/2016 01/17/2017 Hepatic cirrhosis ([facility]) 08/19/2016 [...] pain 01/24/2012 01/17/2017 Genetic Sleep Disorder Research Other*[id number] 05/13/2011 04/07/2016 Obstructive sleep apnea 01/18/2011 12/27/19 [...] BMI > 40) ([facility]) 12/08/2009 07/02/2014 Overview: Per Obesity Taxonomy ICD-10 [...] Care Team Description 01/01/2018 Pharmacy Pharmacy [facility] [address] [place] [address] [phone] 01/11/2018 Procedure Only Endoscopy Janis Hatch DO 132 [facility] [place] [address] [phone] 01/19/2018 Imaging Radiology [place] [address] [facility] [place] [address] [phone] 01/23/2018 Office Visit Gastroenterology Gadiel Pathak MD [address] [place] [address] [phone] 02/13/2018 Office Visit Family Practice Nancy Matute MD [address] [place] [address] [phone] 02/23/2018 Office Visit Sleep Disorders Lanette Fields CRNP 132 [facility] [place] [address] [phone] 02/26/2018 Office Visit [facility]ology [facility] [place] [address] [phone] 03/20/2018 Office Visit Dermatology Rachel Hill MD [address] [place] [address], [place] [address] [phone] 08/07/2018 Office Visit Sleep Disorders Lanette Fields CRNP [address] [place] [address] [phone] [place] Nurse Sleep Disorders [address] [place] [address] [phone] 12/19/2018 Office Visit Gynecology Obstetrics Irene Mujica CRNP [address] [place] [address] [phone] Scheduled Tests Name Priority Associated Diagnoses Order S chedule EGD, FLEXIBLE, DIAGNOSTIC Routine Portal hypertension (HCC) Ordered: 01/01/2018 Health Maintenance Due Date Last Done Comments [...] fileas of this encounter Visit Diagnoses Diagnosis Portal hypertension (HCC) - Primary Portal hypertension in this encounter Insurance Payer Benefit Plan / Group Subscriber ID Type Phone Address [facility] [id number] [employer] [id number] [facility] [id number] as of this encounter
--- OUTSIDE RECORDS SUMMARY | 2023-05-10 23:31 | External Medical Summary | Summary of Care ---
Author Name Unknown Organization [place] [address] Phone Care Team Providers Care Database Dba Name Role Phone Nancy Matute MD Primary Care Provider [phone] Reason for Visit * Reason Comments EMERGENCY DEPARTMENT FOLLOW-UP Encounter Details Date Type Department Care Team Description 12/26/2017 Office Visit [address] [address] Nancy Matute MD [address] [place] [address] [phone] Hyperglycemia*;Bronchi tis, complicated;DM type 2 nursing care encounter ([facility]);Type 2 diabetes mellitus with hemoglobin A1c goal of less than 7.0% ([facility]);Cerebral palsy, unspecified type ([facility]);THAD on CPAP;HTN, goal below 140/90;THOMPSON (nonalcoholic steatohepatitis) Allergies Active Allergy Reactions Severity [...] Inhaler 1 06/29/2016 Active Vitamin D, Ergocalciferol, 42610 UNITS CapsuleIndications: Vitamin D deficiency 1capsule every other week 8 Cap 6 09/27/2016 Active potassium chloride ER 10 MEQ TBCRIndications:Hyp okalemia Take 1 Tab by mouth 2 times a day. With food. 60 Tab 5 01/06/2017 Active Blood Glucose Monitoring Suppl (LED OpticsTOUCH VERIO) W/DEVICE KITIndications:Type 2 diabetes mellitus with hemoglobin A1c goal of less than 7.0% (HCC) Use as directed. Use daily to check blood sugars DX:E11.9 1 Kit 0 01/17/2017 Active Glucose Blood (LED OpticsTOUCH ULTRA BLUE) STRPIndications:Typ e 2 diabetes mellitus with hemoglobin A1c goal of less than 7.0% (HCC) Use as directed 4 times a day as needed for Other (Use daily to check blood sugars DX:E11.9). Use up to four times a day as directed 100 Strip 11 01/17/2017 Active LED OpticsTOUCH ULTRASOFT LANCETS MISCIndications:Typ e 2 diabetes mellitus with hemoglobin A1c goal of less than 7.0% (HCC) Use as directed 4 times a day as needed (Use daily to check blood sugars DX:E11.9). Use up to four times a day as directed 1 Box Dosing Unit 11 01/17/2017 Active busPIRone (BUSPAR) 10 MG Tablet 0 02/14/2017 Active MetFORMIN (GLUCOPHAGE) 1000 MG TabletIndications:T ype 2 diabetes mellitus with hemoglobin A1c goal of less than 7.0% (HCC) Take 1 Tab by mouth 2 times a day. With food. 60 Tab 5 04/17/2017 Active traZODone (DESYREL) 50 MG TabletIndications:S leep [...] 1 07/19/2017 Active fexofenadine (BERNARDA) 180 MG TabletIndications:A [...] bedtime 30 Each 3 10/11/2017 Active nystatin 372747 UNIT/GM creamIndications:Ca ndidal vulvovaginitis Apply topically to affected area 2 times a day. To affacted area for two weeks. 15 g 2 10/12/2017 Active Blood Glucose Monitoring Suppl (ONETOUCH VERIO) w/Device KITIndications:Type 2 diabetes mellitus with hemoglobin A1c goal of less than 7.0% ([facility]) Use up to 4 times a day E11.9 1 Kit 0 10/17/2017 Active gabapentin (NEURONTIN) 300 MG Capsule One pill in am, one midday, two in pm, as directed, increase up to 2 capsules 3 times daily 180 Cap 5 11/16/2017 Active Glucose Blood (LED OpticsTOUCH VERIO) STRP Use up to four times [...] than 7.0% ([facility]) 20 units at bed time 5 Pre-filled Pen Syringe Dosing Unit 3 12/26/2017 Active insulin glargine (LANTUS SOLOSTAR) 100 UNIT/ML SOPNIndications:Typ e 2 diabetes mellitus with hemoglobin A1c goal of less than 7.0% ([facility]) 10 units at bed time 5 Pre-filled Pen Syringe Dosing Unit 3 10/11/2017 12/27/19 18 Discontinued azithromycin (ZITHROMAX Z-SUYAPA) 250 MG TabletIndications:Naga doshi, complicated Take two tablets by mouth on first day, then 1 tablet daily until gone 6 Tab 0 12/19/2017 12/27/19 18 Discontinued as of this encounter Active [...] Stasis dermatitis 05/07/2012 THOMPSON (nonalcoholic steatohepatitis) 04/12 Diverticulosis of colon 05/02/2012 [...] pain 01/24/2012 01/17/2017 Genetic Sleep Disorder Research Other*[id number] 05/13/2011 04/07/2016 Obstructive sleep apnea 01/18/2011 12/27/19 [...] Vital Sign Reading Time Taken Blood Pressure 122/78 12/26/2017 12:49 PM EDT Pulse 72 12/26/2017 12:49 PM EDT Temperature 36.2 C (97.1 F) 12/26/2017 1 2:49 PM EDT Respiratory Rate 18 12/26/2017 12:4 9 PM EDT Oxygen Saturation - - Inhaled Oxygen Concentration - - Weight 115.1 kg (253 lb 12.8 oz) 2017 12:49 PM EDT Height - - Body Mass Index 51.26 12/26/2017 12:49 PM EDT in this encounter Instructions * Patient Instructions - Kiesha Schmitt LPN - 12/26/2017 12:57 PM EDT Diabetes: Keeping Feet Healthy Inspect [...] calluses yourself. Talk to your doctor or molded frames assembler (a doctor who specializes in foot care) [...] the area doesnt appear to be healing. 7613-2298 [employer], [address] [place] [address]. All rights reserved. This information is not intended as a substitute for professional medical care. Always follow your healthcare professional's instructions. in this encounter Progress Notes * Nancy Matute MD - 12/26/2017 1:20 PM EDT Formatting of this note may be different from the original. S: Shaina Bustos is a 62 year old female. Chief Complaint Patient presents with EMERGENCY DEPARTMENT FOLLOW-UP HPI: Patient presents for follow-up emergency room visit on December 21, 2017 for hyperglycemia. Patient had increased her Lantus slightly after previous office visit where she was diagnosed with complicated bronchitis and put on antibiotic, prednisone, narcotic cough suppressant. Sugar was better than her reported outpatient sugar in the emergency room. ER doctor was concerned about her elevation of lactic acid, but it was pointed out by the hospitalist that this is been chronic for her and she has been on metformin long-term. No other changes in medication were recommended. Sugars have improved as Prednisone had dose has been decreased. She is using 15 units of Lantus at bedtime. Reports they only give her 110 at a time. Looks like last prescription was for 5 pens. Oraldo new order for 20 units of Lantus between 8 clock in the evening and bedtime. Active continue metformin. Diet and exercise are encouraged. Patient is on CPAP for obstructive sleep apnea. Patient got notice from her electric me that they will be turning off her left wrist today unless she gets a note from doctor. Would like to get a notetoday. Patient indicates she does have an appointment to see the diabetic pharmacist. No chest pain or shortness of breath. Cough is improved significantly since we saw her last. No other complaints or concerns. Patient Active Problem List Diagnosis Code Spinal stenosis of lumbar region without neurogenic claudication M48.061 Cerebral palsy (HCC) G80.9 HTN, goal below 140/90 I10 Chronic rhinitis J31.0 THOMPSON (nonalcoholic steatohepatitis) K75.81 Diverticulosis of colon K57.30 Stasis dermatitis I87.2 DDD (degenerative disc disease), lumbar M51.36 Intermittent asthma with reliever use up to twice per week J45.20 Lymphedema I89.0 Type 2 diabetes mellitus with hemoglobin A1c goal of less than 7.0% (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 Use daily to check blood sugars DX:E11.9 1 Kit 0 Blood Glucose Monitoring Suppl ([employer]) w/Device KIT Use up to 4 times [...] a day. 1 Cap 0 Glucose Blood (LED OpticsTOUCH ULTRA BLUE) STRP Use as directed 4 times a day as needed for Other (Usedaily to check blood sugars DX:E11.9). Use up to four times a day as directed 100 Strip 11 Glucose Blood (LED OpticsTOUCH VERIO) STRP Use up to four times a day as directed.DX:E11.9 400 Strip 3 Hydrocodone-Acetaminophen (NORCO) 10-325 MG per tablet Take 1 Tab by mouth 2 times a day as needed for Pain. 60 Tab 0 HYDROcodone-homatropine (HYCODAN) 5-1.5 MG/5ML SYRP Take 5 mL by mouth at bedtime as needed forCough. 120 mL 0 insulin glargine (LANTUS SOLOSTAR) 100 UNIT/ML SOPN 20 units at bed time 5 Pre-filled [...] day. Sprinkle over affectedarea. 1 Bottle 1 nystatin 553578 UNIT/GM cream Apply topically to affected area [...] bedtime 30 Tab 5 Vitamin D, Ergocalciferol, 48889 UNITS Capsule 1capsule every other week 8 Cap 6 Past Medical History: Diagnosis Date Chronic pain [...] (RECTUM) 10/04/2016 normal bx, repeat 10 yrs/[facility] DENTAL SURGERY PROCEDURE NEC wisdom teeth x 4 DILATION AND CURETTAGE (D&C) EGD, FLEXIBLE, DIAGNOSTIC 10/04/2016 gastritis/[facility] PELVIS/HIP JOINT SURGERY NEC teenager aid in walking REPAIR/GRAFT ACHILLES TENDON age 40 aid in walking Review of patient's allergies indicates: Allergen Reactions Pcn [Penicillins] Rash Family History Problem Relation Age of Onset Heart Disorder Father of GA at age 61 Heart Disorder Mother of GA age 72 Diabetes Father Cancer None Arthritis [...] Alcohol use No Comment: rare Review of Systems: Skin: pt denies, rash, itching Eyes: negative Ears/Nose/Throat: pt denies:, frequent URI's Respiratory: pt denies:, cough and wheezing Cardiovascular: pt denies:, palpitations, tachycardia, irregular heart beat and chest pain Gastrointestinal: pt. denies:, abdominal pain, nausea, heartburn, diarrhea Genitourinary: pt denies:, dysuria, frequency and hesitancy Musculoskeletal: pt denies significant joint pain or stiffness Neurologic: pt denies:, numbness or tingling of hands and numbness or tingling of feet Psychiatric: pt denies:, anxiety and depression Hematologic/Lymphatic/Immunologic: pt denies:, fever and chills Endocrine: pt denies:, cold intolerance and heat intolerance O: BP 122/78 | Pulse 72 | Temp (Src) 97.1 (Tympanic) | Resp 18 | Wt 253 lbs 12.8 oz (115.123kg) | BMI 51.26 kg/m | BSA 2.19 m Physical Exam: General appearance - healthy, alert, no distress Skin - Skin color, texture, turgor normal. No rashes or lesions Head - Normocephalic., No masses, lesions, tenderness or abnormalities. Eyes - Conjunctivae and corneas clear. PERRL, EOM's intact. Fundi benign Ears - External ears normal. Canals clear. TM's normal Nose/Sinuses - Nares normal. Septum midline. Mucosa normal. No drainage. Oropharynx - Lips, mucosa, and tongue normal. Oropharynx clear Neck - neck supple, no adenopathy, thyroid symmetric, normal size Back - No CVA tenderness Lungs - Lungs clear to auscultation Heart - RRR. No murmurs, clicks or rubs Abdomen - abdomen soft, non-tender, bowel sounds normal, no masses or hepatosplenomegaly A/P: R73.9 Hyperglycemia (primary encounter diagnosis) Diabetic foot exam is done today. Will renew Lantus at 20 units each evening. Follow through with seeing diabetic pharmacist. Complete course of prednisone. Encouraged diet, exercise, weight loss. Patient is encouraged to avoid sick people. May keep appointment with molded frames assembler as scheduled. Continue current medications. Call with questions or problems. PREVENTION REVIEWED WEIGHT AND BP CURVES GIVEN LAB FLOW SHEET GIVEN J40 Bronchitis, complicated E11.9 Dm type 2 nursing care encounter (hcc) Plan: Diabetes foot exam E11.9 Type 2 diabetes mellitus with hemoglobin a1c goal of less than 7.0% ([facility]) Plan: Insulin glargine 100 unit/ml subq sopn Si units at bed time G80.9 Cerebral palsy, unspecified type ([facility]) G47.33, Z99.89 Thad on cpap I10 Htn, goal below 140/90 K75.81 Thompson (nonalcoholic steatohepatitis) Follow up: Return if symptoms worsen or fail to improve. Nancy Matute MD (This note was completed using the dictation program Fluency Direct. As such, there may be misspellings, word substitutions, or other variations that should not change the essence of the clinical content of this encounter note.If there is need for further clarification, please direct questions to the provider listed above.) * Kiesha Schmitt LPN - 12/26/2017 12:57 PM EDT DM Foot Exam completed today. Provider aware. Kiesha Schmitt LPN Socks and Shoes Removed for Annual [...] monofilament pressure on plantar surface of foot Possible ingrown nail on left foot requests we let for podiatry which she is seeing tomorrow. in this encounter Nursing Notes * Kiesha Schmitt LPN - 12/26/2017 12:48 PM EDT ER follow up in this encounter Plan of Treatment Upcoming Encounters Date Type Specialty Care Team Description 01/01/2018 Pharmacy Pharmacy [facility] [address] [place] [address] [phone] 01/11/2018 Procedure Only Endoscopy Janis Hatch DO [address] [place] [address] [phone] 01/19/2018 Imaging Radiology [facility] [address] [place] [address] [phone] 01/23/2018 Office Visit Gastroenterology Gadiel Pathak MD [address] [place] [address] [phone] 02/13/2018 Office Visit Family Practice Nancy Matute MD [address] [place], [place] [id number] 02/23/2018 Office Visit Sleep Disorders Lanette Fields CRNP [address] [facility] [place] [address] [phone] 02/26/2018 Office Visit Gastroenterology Lyssa Stout CRNP [address] [place] [address] [phone] 03/20/2018 Office Visit Dermatology Rachel Hill MD [address] [place] [address], [place] [address] [phone] 08/07/2018 Office Visit Sleep Disorders Lanette Fields CRNP [address] [place] [address] [phone] [place], Nurse Sleep Disorders [address] [facility] [place] [address] [phone] 12/19/2018 Office Visit Gynecology Obstetrics Irene Mujica CRNP [address] [facility] [place] [address] [phone] Health Maintenance Due Date Last Done Comments [...] fileas of this encounter Visit Diagnoses Diagnosis Hyperglycemia - Primary Other abnormal glucose Bronchitis, complicated Bronchitis, not specified as acute or chronic DM type 2 nursing care encou nter ([facility]) Type II or unspecified type diabetes mellitus without mention of complication, not stated as uncontrolled Type 2 diabetes mellitus wit h hemoglobin A1c goal of less than 7.0% (HCC) Cerebral palsy, unspecified type (HCC) THAD on CPAP Obstructive sleep apnea (adult) (pediatric) HTN, goal below 140/90 Unspecified essential hypertension THOMPSON (nonalcoholic steatohep atitis) Other chronic nonalcoholic liver disease in this encounter Insurance Payer Benefit Plan / Group Subscriber ID Type Phone Address [facility] [id number] [employer] [id number] [facility] [id number] as of this encounter"
--- OUTSIDE RECORDS SUMMARY | 2023-05-10 23:31 | External Medical Summary | Summary of Care ---
Author Name Unknown Organization [place] [address] Phone Care Team Providers Care Golf Club Assembler Name Role Phone Nancy Matute MD Primary Care Provider [phone] Reason for Visit * Reason Comments MED REQUEST Encounter Details Date Type Department Care Team Description 12/27/2017 Telephone [place] [address] [place] [address] Nancy Matute MD [address] [place] [address] [phone] MED REQUEST Allergies Active Allergy Reactions Severity Noted [...] Inhaler 1 06/29/2016 Active Vitamin D, Ergocalciferol, 91181 UNITS CapsuleIndications:Vi tamin D deficiency 1capsule every other week 8 Cap 6 09/27/2016 Active potassium chloride ER 10 MEQ TBCRIndications:Hypok alemia Take 1 Tab by mouth 2 times a day. With food. 60 Tab 5 01/06/2017 Active Blood Glucose Monitoring Suppl (UNATIONTOUCH VERIO) W/DEVICE KITIndications:Type 2 diabetes mellitus with hemoglobin A1c goal of less than 7.0% (HCC) Use as directed. Use daily to check blood sugars DX:E11.9 1 Kit 0 01/17/2017 Active Glucose Blood (UNATIONTOUCH ULTRA BLUE) STRPIndications:Type 2 diabetes mellitus with [...] bedtime 30 Each 3 10/11/2017 Active nystatin 833097 UNIT/GM creamIndications:Cand idal vulvovaginitis Apply topically to affected area 2 times a day. To affacted area for two weeks. 15 g 2 10/12/2017 Active Blood Glucose Monitoring Suppl (UNATIONTOUCH VERIO) w/Device KITIndications:Type 2 diabetes mellitus with [...] of less than 7.0% ([facility]) 20 units at bed time 5 Pre-filled [...] pain 01/24/2012 01/17/2017 Genetic Sleep Disorder Research Other*[id number] 05/13/2011 04/07/2016 Obstructive sleep apnea 01/18/2011 12/27/19 [...] Telephone Encounter - Ludy Jara LPN - 12/27/2017 1:29 PM EDT Pt aware of this. * Telephone Encounter - Nancy Matute MD - 12/27/2017 12:47 PM EDT Please notify- Controlled medication prescriptions cannot be replaced. They can be reordered 30 days after last prescription. Nancy Matute MD * Telephone Encounter - Susan Rosales RN - 12/27/2017 10:06 AM EDT See message below please advise? * Telephone Encounter - Cassie Joseph, supply chain buyer - 12/27/2017 9:23 AM EDT Patient called stating that she misplaced her hydrocodone-acetaminophen 10-325 mg tablets the day that she picked the medication up which was on 12/11/17. The patient is requesting a new prescription to be sent in for the hydrocodone- acetaminophen to [facility]. Patient can be reached [phone]. Please Advise Thanks, Cassie Joseph Software Team Leader Pharmacy Refill Call Center 12/27/2017,9:25 AM in this encounter Plan of Treatment Upcoming Encounters Date Type Specialty Care Team Description 01/01/2018 Pharmacy Pharmacy [address] [place] [address] [phone] 01/11/2018 Procedure Only Endoscopy Janis Hatch DO [address] [place] [address] [phone] 01/19/2018 Imaging Radiology [facility] [address] [place] [address] [phone] 01/23/2018 Office Visit Gastroenterology Gadiel Pathak MD [address] [facility], [place] [address] 02/13/2018 Office Visit Family Practice Nancy Matute MD [address] [place] [address] [phone] 02/23/2018 Office Visit Sleep Disorders Lanette Fields CRNP 132 [facility] [place] [address] [phone] 02/26/2018 Office Visit [facility]enterology [facility] CR[facility] [address] [facility] [place] [address] [phone] 03/20/2018 Office Visit Dermatology Rachel Hill MD [address] [place] [address] [phone] 08/07/2018 Office Visit Sleep Disorders Lanette Fields CRNP [address] [facility] [place] [address] [phone] Kentrell Nurse Sleep Disorders 132 [facility] [place] [address] [phone] 12/19/2018 Office Visit Gynecology Obstetrics Irene Mujica CRNP [address] [facility] [place] [address] [phone] Health Maintenance Due Date Last Done Comments [...] / Group Subscriber ID Type Phone Address [facility] BLUE [facility] [id number] [employer] [id number] [facility] [id number] as of this encounter
--- OUTSIDE RECORDS SUMMARY | 2023-05-10 23:32 | External Medical Summary | Summary of Care ---
Author Name Unknown Organization [place] [address] Phone Care Team Providers Care Carpenter/Labor Name Role Phone Nancy Matute MD Primary Care Provider [phone] Encounter Details Date Type Department Care Team Description 12/22/2017 Orders Only [place] [address] [place] [address] Nancy Matute MD [address] [place] [address] [phone] Allergies Active Allergy Reactions Severity Noted Date [...] Inhaler 1 06/29/2016 Active Vitamin D, Ergocalciferol, 10952 UNITS CapsuleIndications:Vi tamin D deficiency 1capsule every [...] Active albuterol-ipratropium (DUONEB) 2.5-0.5 MG/3ML nebulizer solutionIndications:[facility] exacerbation Use 1 vial in nebulizer 180 [...] goal of less than 7.0% ([facility]) 10 units at bed time 5 Pre-filled Pen Syringe Dosing Unit 3 10/11/2017 Active Insulin Pen Needle 31G X 6 MM MISCIndications:Type 2 diabetes mellitus with hemoglobin A1c goal of less than 7.0% ([facility]) Use with Lantus Solostar at bedtime 30 Each 3 10/11/2017 Active nystatin 887040 UNIT/GM creamIndications:Cand idal vulvovaginitis Apply topically to affected area 2 times a day. To affacted area for two weeks. 15 g 2 10/12/2017 Active Blood Glucose Monitoring Suppl (Mad MimiTOUCH VERIO) w/Device KITIndications:Type 2 diabetes mellitus with hemoglobin A1c goal of less than 7.0% ([facility]) Use up to 4 times a [...] rhinitis 03/27/2012 Cerebral palsy ([facility]) 01/24/2012 Obstructive sleep apnea 01/18/2011 Overview: 08/18/11 [...] Atypical chest pain 08/19/2016 01/17/2017 Hepatic cirrhosis ([facility]) 08/19/2016 03/28/20 17 [...] pain 01/24/2012 01/17/2017 Genetic Sleep Disorder Research Other*[id number] 05/13/2011 04/07/2016 Lumbosacral spondylosis 12/27/2010 05/25/20 12 [...] Specialty Care Team Description 12/26/2017 Office Visit Family [facility] Nancy Matute MD [address] [place] [address] [phone] 01/01/2018 Pharmacy Pharmacy [facility] [address] [place] [facility] [place] [address] [phone] 01/11/2018 Procedure Only [facility] [address] [phone] 01/19/2018 Imaging Radiology [facility] [address] [facility] [place] [address] [phone] 01/23/2018 Office Visit Gastroenterology Gadiel Pathak MD [address] [place] [facility] [place] [address] [phone] 02/13/2018 Office Visit Family Practice Nancy Matute MD [address] [place] [facility] [place] [address] [phone] 02/23/2018 Office Visit Sleep Disorders Lanette Fields CRNP [address] [facility] [place] [address] [phone] 02/26/2018 Office Visit [facility]enterology [facility] Stout CRNP [address] [facility] [place] [address] [phone] 03/20/2018 Office Visit Dermatology Rachel Hill MD [address] [place] [address], [place] [address] [phone] 08/07/2018 Office Visit Sleep Disorders Lanette Fields CRNP [address] [facility] [place] [address] [phone] [place], Nurse Sleep Disorders [address] [facility] [place] [address] [phone] 12/19/2018 Office Visit Gynecology Obstetrics Irene Mujica CRNP [address] [facility] [place] [address] [phone] Pending Results Name Priority Associated Diagnoses Date/Ti me XR CHEST 2 VIEWS Routine 12/21/2017 12:00 AM EDT Health Maintenance Due Date [...] / Group Subscriber ID Type Phone Address [facility] [id number] [employer] [id number] [facility] [id number] as of this encounter
--- OUTSIDE RECORDS SUMMARY | 2023-05-10 23:32 | External Medical Summary | Summary of Care ---
Author Name Unknown Organization [place] [address] Phone Care Team Providers Care Hiv Prevention Specialist Name Role Phone Nancy Matute MD Primary Care Provider [phone] Reason for Visit * Reason Comments REFERRAL Encounter Details Date Type Department Care Team Description 12/21/2017 Pharmacy Pharmacy, [address] [address] [facility] [address] [place] [address] [phone] Type 2 diabetes mellitus with hemoglobin A1c [...] Inhaler 1 06/29/2016 Active Vitamin D, Ergocalciferol, 60021 UNITS CapsuleIndications:Vi tamin D deficiency 1capsule every [...] 7.0% ([facility]) Use with Lantus Solostar at bedtime 30 Each 3 10/11/2017 Active nystatin 968687 UNIT/GM creamIndications:Cand idal vulvovaginitis Apply topically to affected area 2 times a day. To affacted area for two weeks. 15 g 2 10/12/2017 Active Blood Glucose Monitoring Suppl (TEOCO CorporationTOUCH VERIO) w/Device KITIndications:Type 2 diabetes mellitus with hemoglobin A1c goal of less than 7.0% ([facility]) Use up to 4 times a day E11.9 1 Kit 0 10/17/2017 Active gabapentin (NEURONTIN) 300 MG Capsule One pill in am, one midday, two in pm, as directed, increase up to 2 capsules 3 times daily 180 Cap 5 11/16/2017 Active Glucose Blood ([employer] Corporation[employer]OUCH VERIO) STRP Use up to four [...] 140/90 03/27/2012 Chronic rhinitis 03/27/2012 Cerebral palsy ([facility]) 01/24/2012 Obstructive sleep apnea 01/18/2011 Overview: 08/18/11 [...] chest pain 08/19/2016 01/17/2017 Hepatic cirrhosis ([facility]) 08/19/2016 03/28/20 Polyuria 08/09/2016 01/17/2017 Urinary frequency 08/09/2016 01/17/2017 Generalized OA 06/14/2016 03/28/2017 Body mass index (BMI) of 45.0-49.9 in adult ([facility] ) 12/09/2015 01/17/2017 Overview: bmi= 48.04 12/09/15 Need for shingles vaccine 12/09/20152015 Bilateral shoulder pain 08/25/2015 06/07/20 16 Bilateral shoulder pain 07/16/2015 06/07/20 16 Cerebral palsy ([facility]) 04/23/2015 03/28/2017 Candidal vulvovaginitis [...] pain 01/24/2012 01/17/2017 Genetic Sleep Disorder Research Other*[id number] 05/13/2011 04/07/2016 Lumbosacral spondylosis 12/27/2010 05/25/20 12 Dyslipidemia, goal LDL below 130 06/01/2010 03/28/2012 Asthma with severity to be determined 03/04/2010 11/01/2011 Overview: Per Asthma Taxonomy ICD-10 update of inactive term Asthma in remission 03/04/2010 01/09/2013 Overview: Per Provider Protocol. Obesity, morbid (more than 1 00 lbs over ideal weight or BMI > 40) ([facility]) 12/08/2009 07/02/2014 Overview: Per [...] this encounter Progress Notes * Shelli Osorio, [facility] - 12/21/2017 1:21 PM EDT Agree with plan Shelli Osorio, PharmD, [facility] Clinical Pharmacist 12/21/2017, 1:21 PM * Zelda Hagan OSA - 12/21/2017 1:14 PM EDT Pharmacist Disease Management Service 12/21/2017 Name: Shaina Glover Juli [address] [facility] [address] [place] [address] phone: [phone] (home) Called patient to set up appointment for diabetes education per physician referral. Spoke with patient and she scheduled her first DM appt for January 01. She will bring in her BG numbers. Her caregiver may be accompanying her. Appointment scheduled Current diabetic Medications: Hemoglobin AIC Results: HEMOGLOBIN, A1C(%) Lucio Dt/Tm Resulted Value Status 10/11/17 1:18P 10/11/17 6.9* FINAL 03/28/17 3:31P 03/28/17 6.6* FINAL 02/01/17 11:19A 02/01/17 6.9* FINAL goal A1c per refferal: Glucose Results: GLUCOSE-OUTSIDE LAB(MG/DL) Lucio Dt/Tm Resulted Value Status 11/19/17 11/21/17 164* FINAL 11/17/17 11/21/17 158* FINAL 11/01/17 11/03/17 188* FINAL Zelda Hagan, THAD Medication Therapy [facility] 12/21/2017, 1:14 PM in this encounter Plan of Treatment Upcoming Encounters Date Type Specialty Care Team Description 12/21/2017 Pharmacy Pharmacy [facility] [address], [place] [id number] Type 2 diabetes mellitus with hemoglobin A1c goal of less than 7.0% ([facility])* 01/01/2018 Pharmacy Pharmacy [facility] [address] [place], [place] [id number] 01/11/2018 Procedure Only Endoscopy Janis Hatch DO [address] [facility] [place] [address] [phone] 01/19/2018 [facility] [address] [phone] 01/23/2018 Office Visit Gastroenterology Gadiel Pathak MD [address] [place] [address] [phone] 02/13/2018 Office Visit Family Practice Nancy Matute MD [address] [place], [place] [id number] 02/23/2018 Office Visit Sleep Disorders [facility] [address] [facility] [place] [address] [phone] 02/26/2018 Office Visit Gastroenterology Lyssa Stout CRNP [address] [place] [address] [phone] 03/20/2018 Office Visit Dermatology Rachel Hill MD [address] [place] [address], [place] [address] [phone] 08/07/2018 Office Visit Sleep Disorders Lanette Fields CRNP [address] [place] [address] [phone] [facility] [address] [place] [address] [phone] 12/19/2018 Office Visit Gynecology Obstetrics Irene Mujica CRNP [address] [place] [address] [phone] Health Maintenance Due Date Last Done Comments [...] / Group Subscriber ID Type Phone Address [facility] [id number] [employer]ETNA AETNA [facility] [id number] [facility] [id number] as of this encounter
--- OUTSIDE RECORDS SUMMARY | 2023-05-10 23:32 | External Medical Summary | Summary of Care ---
Author Name Unknown Organization [place] [address] Phone Care Team Providers Care Account Contact Associate Name Role Phone Nancy Matute MD Primary Care Provider [phone] Reason for Referral * Evaluate & Treat - Unlimited Visits (Within 10 days (routine)) Status Reason Specialty Diagnoses / Procedures Referred By Contact Referred To Contact Pending Review Specialty Services Required Pharmacist / Pharmacy Diagnoses Type 2 diabetes mellitus with hemoglobin A1c goal of less than 7.0% ([facility]) HTN, goal below 140/90 Nancy Matute MD [address] [place] [phone] Reason for Visit * Reason Comments COUGH Encounter Details Date Type Department Care Team Description 12/19/2017 Office Visit [place] [address] [place] [address] Nancy Matute MD [address] [place] [address] [phone] Bronchitis, complicated*;Sleep disturbance;Viral URI with cough;Intermittent asthma with reliever use up to twice per week without complication;Type 2 diabetes mellitus with hemoglobin A1c goal of less than 7.0% ([facility]);Cerebral palsy, unspecified type ([facility]);HTN, goal below 140/90;Obstructive sleep apnea;Restrictive lung disease Allergies Active Allergy Reactions Severity [...] Inhaler 1 06/29/2016 Active Vitamin D, Ergocalciferol, 82140 UNITS CapsuleIndications:Vi tamin D deficiency 1capsule every other week 8 Cap 6 09/27/2016 Active potassium chloride ER 10 MEQ TBCRIndications:Hypok alemia Take 1 Tab by mouth 2 times a day. With food. 60 Tab 5 01/06/2017 Active Blood Glucose Monitoring Suppl (RoyalCactus VERIO) W/DEVICE KITIndications:Type 2 diabetes mellitus with hemoglobin A1c goal of less than 7.0% ([facility]) Use as directed. Use daily to check blood sugars DX:E11.9 1 Kit 0 01/17/2017 Active Glucose Blood (V[employer] LLCUCH ULTRA BLUE) STRPIndications:Type 2 diabetes mellitus with [...] bedtime 30 Each 3 10/11/2017 Active nystatin 528931 UNIT/GM creamIndications:Cand idal vulvovaginitis Apply topically to affected area 2 times a day. To affacted area for two weeks. 15 g 2 10/12/2017 Active Blood Glucose Monitoring Suppl ([employer]UCH [employer]) w/Device KITIndications:Type 2 diabetes mellitus with hemoglobin A1c goal of less than 7.0% (HCC) Use up to 4 times a day E11.9 1 Kit 0 10/17/2017 Active gabapentin (NEURONTIN) 300 MG Capsule One pill in am, one midday, two in pm, as directed, increase up to 2 capsules 3 times daily 180 Cap 5 11/16/2017 Active Glucose Blood ([employer] VERIO) STRP Use up to four times [...] Chronic rhinitis 03/27/2012 Cerebral palsy (HCC) 01/24/2012 Obstructive sleep apnea 01/18/2011 Overview: 08/18/11 [...] pain 08/19/2016 01/17/2017 Hepatic cirrhosis ([facility] [...] pain 01/24/2012 01/17/2017 Genetic Sleep Disorder Research Other*[id number] 05/13/2011 04/07/2016 Lumbosacral spondylosis 12/27/2010 05/25/20 12 [...] Vital Sign Reading Time Taken Blood Pressure 128/80 12/19/2017 12:50 PM EDT Pulse 80 12/19/2017 12:50 PM EDT Temperature 36.7 C (98.1 F) 12/19/2017 1 2:50 PM EDT Respiratory Rate 18 12/19/2017 12:5 0 PM EDT Oxygen Saturation - - Inhaled Oxygen Concentration - - Weight 117.5 kg (259 lb) 12/19/2017 12: 50 PM EDT Height - - Body Mass Index 52.31 12/19/2017 12:50 PM EDT in this encounter Progress Notes * Nancy Matute MD - 12/19/2017 1:20 PM EDT Formatting of this note may be different from the original. S: Shaina Bustos is a 62 year old female. Chief Complaint Patient presents with COUGH HPI: The incredibly complicated patient presents with report of persisting cough over the last month or 2. Had been put on prednisone taper at that time. Had some improvement at that time but did have elevation are sugars with that. Did not have persistent improvement. Does have an inhaler at home.Just found that recently. Has been using twice a day without complete relief. Severe cough and coughing paroxysms interfere with sleep at night. Needs to really be able to sleep. Because of her acute illness, she has not been eating as well. In spite of that her sugars have been higher. Think she is drinking water okay. Does take her regular congestion medications. Does use her nasal spray. Could have fevers and chills at times. Congestion runny nose at times. Stuffiness and pressure in her ears at times. Facial pressure at times. May have headache associated with cough. Wonders if it could be related to high sugar. Moving her bowels okay. Passing her water okay. Has not increased her Lantus from 10 units a day. Is willing to increase that to 15 units a day. Iswilling to sign to work with diabetic pharmacist to get diabetes to better control. No other complaints or concerns. 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 Debility R53.81 History of Clostridium difficile colitis Z86.19 Bladder tumor D49.4 Chronic indwelling Cline catheter Z92.89 Recurrent UTI N39.0 Preoperative cardiovascular examination Z01.810 Cirrhosis of liver (HCC) K74.60 Current Outpatient Prescriptions Medication Sig Dispense Refill [...] nostril 2 times a day.1 Bottle 11 azithromycin (ZITHROMAX Z-SUYAPA) 250 MG Tablet Take two tablets by mouth on first day, then 1 tablet daily until gone 6 Tab 0 BETAMETHASONE VALERATE 0.1 % EX CREA apply to affected area twice daily, as needed 30 g 1 Blood Glucose Monitoring Suppl (Listen Edition) W/DEVICE KIT Use as directed. Use daily to check blood sugars DX:E11.9 1 Kit 0 Blood Glucose Monitoring Suppl (Listen Edition) w/Device KIT Use up to 4 times [...] a day. 1 Cap 0 Glucose Blood (RoyalCactus ULTRA BLUE) STRP Use as directed 4 times a day as needed for Other (Usedaily to check blood sugars DX:E11.9). Use up to four times a day as directed 100 Strip 11 Glucose Blood (ONETOUCH VERIO) STRP Use up [...] insulin glargine (LANTUS SOLOSTAR) 100 UNIT/ML SOPN 10 units at bed time 5 Pre-filled [...] Sprinkle over affectedarea. 1 Bottle 1 nystatin 722697 UNIT/GM cream Apply topically to affected area [...] bedtime 30 Tab 5 Vitamin D, Ergocalciferol, 59807 UNITS Capsule 1capsule every other week 8 [...] EGD, FLEXIBLE, DIAGNOSTIC 10/04/2016 gastritis/[facility] PELVIS/HIP JOINT SURGERY NEC teenager aid in walking REPAIR/GRAFT ACHILLES TENDON age 40 aid in walking Review of patient's allergies indicates: Allergen Reactions Pcn [Penicillins] Rash Family History Problem Relation Age of Onset Heart Disorder Father of [place] at age 61 Heart Disorder Mother of [place] age 72 Diabetes Father Cancer None Arthritis [...] pt denies, rash, itching Eyes: negative Ears/Nose/Throat: As above Respiratory: As above Cardiovascular: pt denies:, palpitations, tachycardia, irregular heart beat and chest pain Gastrointestinal: pt. denies:, abdominal pain, nausea, heartburn, diarrhea Genitourinary: pt denies:, dysuria, frequency and hesitancy Musculoskeletal: pt denies significant joint pain or stiffness Neurologic: pt denies:, numbness or tingling of hands and numbness or tingling of feet Psychiatric: pt denies:, anxiety and depression Hematologic/Lymphatic/Immunologic: As above Endocrine: As above O: BP 128/80 | Pulse 80 | Temp (Src) 98.1 (Tympanic) | Resp 18 | Wt 259 lbs (117.482kg) | BMI 52.31 kg/m | BSA 2.21 m Physical Exam: General appearance - ill appearing white female, alert, no distress Skin - Skin color, texture, turgor normal. No rashes or lesions Head - Normocephalic., No masses, lesions, tenderness or abnormalities. Eyes - Conjunctivae and corneas clear. PERRL, EOM's intact. Ears - External ears normal. Canals clear. TM's normal Nose/Sinuses - Nares normal. Septum midline. Mucosa boggy and edematous. Clear drainage. Oropharynx - Lips, mucosa, and tongue normal. Oropharynx erythematous Neck - neck supple, no adenopathy, thyroid symmetric, normal size Back - No CVA tenderness Lungs - increased bronchial noises and cough with deep breathing Heart - RRR. No murmurs, clicks or rubs Abdomen - abdomen soft, non-tender, bowel sounds normal, no masses or hepatosplenomegaly A/P: J40 Bronchitis, complicated (primary encounter diagnosis) Plan: Rest and fluids. Will give azithromycin 2 today then 1 each day over the next 4 days total 6 tablets. Will give 10 day prednisone taper. Increase Lantus to 15 units daily. New referral for diabetic pharmacist is given. Use inhaler 2 puffs 4 times a day for week, then 2 puffs 3 times a day forweek, then tapers directed. Sleep in recliner propped up on 3 pillows. Will give prescription for Hycodan to use at bedtime. Continue regular medications. Call with questions or problems. Return to clinic for regular follow up with me in February. Xr chest 2 views Azithromycin 250 mg po tabs Sig:Take two tablets by mouth on first day, then 1 tablet daily until gone Prednisone 10 mg po tabs Sig:Take 5 tabs for 2 days, 4 tabs for 2 days, 3 tabs for 2 days, 2 tabs for 2 days 1 tab for 2 days G47.9 Sleep disturbance Plan: Hydrocodone-homatropine 5-1.5 mg/5ml po syrp Sig:Take 5 ml by mouth at bedtime as needed for cough. J06.9, B97.89 Viral uri with cough J45.20 Intermittent asthma with reliever use up to twice per week without complication E11.9 Type 2 diabetes mellitus with hemoglobin a1c goal of less than 7.0% (hcc) Plan: Pharmacist meds therapy mgmt referral op G80.9 Cerebral palsy, unspecified type (hcc) I10 Htn, goal below 140/90 Plan: Pharmacist meds therapy mgmt referral op G47.33 Obstructive sleep apnea J98.4 Restrictive lung disease Follow up: Return if symptoms worsen or fail to improve. I have reviewed the patients controlled substance dispensing history in the Prescription Drug Monitoring Program in compliance with the [facility] regulations before prescribing a controlled substance. Nancy Matute MD (This note was completed using the dictation program Fluency Direct. As such, there may be misspellings, word substitutions, or other variations that should not change the essence of the clinical content of this encounter note.If there is need for further clarification, please direct questions to the provider listed above.) in this encounter Nursing Notes * Kiesha Schmitt LPN - 12/19/2017 12:48 PM EDT Ongoing cough bringing up mucous yellow brown in color and issues with elevated Blood sugars. in this encounter Plan of Treatment Upcoming Encounters Date Type Specialty Care Team Description 01/19/2018 Imaging Radiology [facility] [address] [place] [address] PMB (postmenopausal bleeding) 01/23/2018 Office Visit Gastroenterology Gadiel Pathak MD [address] [place] [address] 02/13/2018 Office Visit Family Practice Nancy Matute MD [address] [place] [address] 02/26/2018 Office Visit Gastroenterology Lyssa Stout CRNP [address] [place] [address] [phone] 03/20/2018 Office Visit Dermatology Rachel Hill MD [address] [place] [address] [phone] 08/07/2018 Office Visit Sleep Disorders Lanette Fields CRNP [address] [facility] [place] [address] [phone] Nurse [facility] [address] [place] [address] [phone] 12/19/2018 Office Visit Gynecology Obstetrics Irene Mujica CRNP [address] [facility] [place] [address] [phone] Scheduled Tests Name Priority Associated Diagnoses Order S chedule XR CHEST 2 VIEWS Routine Bronchitis, complicated Expected: 01/18/2018, Expires: 01/18/2019 Scheduled Referrals Name Priority Associated Diagnoses Order S chedule PHARMACIST MEDS THERAPY MGMT REFERRAL OP Within 10 days (routine) Type 2 diabetes mellitus with hemoglobin A1c goal of less than 7.0% (HCC) HTN, goal below 140/90 Ordered: 12/19/2017 Health Maintenance Due Date Last Done Comments [...] fileas of this encounter Visit Diagnoses Diagnosis Bronchitis, complicated - Pr imary Bronchitis, not specified as acute or chronic Sleep disturbance Sleep disturbance, unspecified Viral URI with cough Acute upper respiratory infections of unspecified site Intermittent asthma with rel iever use up to twice per week without complication Type 2 diabetes mellitus wit h hemoglobin A1c goal of less than 7.0% (HCC) Cerebral palsy, unspecified type (HCC) HTN, goal below 140/90 Unspecified essential hypertension Obstructive sleep apnea Obstructive sleep apnea (adult) (pediatric) Restrictive lung disease Other diseases of lung, not elsewhere classified in this encounter Insurance Payer Benefit Plan / Group Subscriber ID Type Phone Address [facility] [id number] [employer]NA [employer]NA [employer] [id number] [facility] [id number] as of this encounter"
--- OUTSIDE RECORDS SUMMARY | 2023-05-10 23:32 | External Medical Summary | Summary of Care ---
Author Name Unknown Organization [place] [address] Phone Care Team Providers Care Reclamation Supervisor Name Role Phone Nancy Matute MD Primary Care Provider [phone] Reason for Visit * Reason Comments ADVICE Encounter Details Date Type Department Care Team Description 12/21/2017 Telephone [id number] [place] [address] Nancy Matute MD [address] [place] [address] [phone] ADVICE Allergies Active Allergy Reactions Severity Noted [...] Inhaler 1 06/29/2016 Active Vitamin D, Ergocalciferol, 00471 UNITS CapsuleIndications:Vi tamin D deficiency 1capsule every other week 8 Cap 6 09/27/2016 Active potassium chloride ER 10 MEQ TBCRIndications:Hypok alemia Take 1 Tab by mouth 2 times a day. With food. 60 Tab 5 01/06/2017 Active Blood Glucose Monitoring Suppl (Simpler NetworksTOUCH VERIO) W/DEVICE KITIndications:Type 2 diabetes mellitus with hemoglobin A1c goal of less than 7.0% (HCC) Use as directed. Use daily to check blood sugars DX:E11.9 1 Kit 0 01/17/2017 Active Glucose Blood (Simpler NetworksTOUCH ULTRA BLUE) STRPIndications:Type 2 diabetes mellitus with [...] Active albuterol-ipratropium (DUONEB) 2.5-0.5 MG/3ML nebulizer solutionIndications:A [facility] exacerbation Use 1 vial in nebulizer 180 [...] less than 7.0% ([facility]) 10 units at bed time 5 Pre-filled Pen Syringe Dosing Unit 3 10/11/2017 Active Insulin Pen Needle 31G X 6 MM MISCIndications:Type 2 diabetes mellitus with hemoglobin A1c goal of less than 7.0% ([facility]) Use with Lantus Solostar at bedtime 30 Each 3 10/11/2017 Active nystatin 192835 UNIT/GM creamIndications:Cand idal vulvovaginitis Apply topically to affected area 2 times a day. To affacted area for two weeks. 15 g 2 10/12/2017 Active Blood Glucose Monitoring Suppl (ONETOUCH VERIO) w/Device KITIndications:Type 2 diabetes mellitus with hemoglobin A1c goal of less than 7.0% ([facility]) Use up to 4 [...] 03/27/2012 Chronic rhinitis 03/27/2012 Cerebral palsy ([facility]) 01/24/2012 Obstructive sleep apnea [...] chest pain 08/19/2016 01/17/2017 Hepatic cirrhosis ([facility]) 08/19/2016 [...] pain 01/24/2012 01/17/2017 Genetic Sleep Disorder Research Other*[id number] 05/13/2011 04/07/2016 Lumbosacral spondylosis 12/27/2010 05/25/20 12 Dyslipidemia, goal LDL below 130 06/01/2010 03/28/2012 Asthma with severity to be determined 03/04/2010 11/01/2011 Overview: Per Asthma Taxonomy ICD-10 update of inactive term Asthma in remission 03/04/2010 01/09/2013 Overview: Per Provider Protocol. Obesity, morbid (more than 1 00 lbs over ideal weight or BMI > 40) ([facility]) 12/08/2009 07/02/2014 Overview: Per [...] Telephone Encounter - Carter Chan MD - 12/21/2017 2:01 PM EDT Notify pt: I would suggest she be evaluated in ER. She may need to be admitted to control sugars. * Telephone Encounter - Shannan Bojorquez LPN - 12/21/2017 1:40 PM EDT Call from triage nurse: Pt reports blood sugar of 526, is on prednisone. Started 12/19/2017. Only other complaint is headache. Lantus recently increased from 10 units to 15 units. Pt: [phone] * Telephone Encounter - Gabi Meraz LPN - 12/21/2017 1:32 PM EDT Pt calling states that she just checked her BS and it 562, states that she is on prednisone. Pt states that she also has bad COLON. Spoke with Rachel at the office and made aware of above message as well * Telephone Encounter - Georgia Nunez OSA - 12/21/2017 1:30 PM EDT Reason for patient's call: Advise Caller was transferred to [facility] at the dedicated phone nurse line. in this encounter Plan of Treatment Upcoming Encounters Date Type Specialty Care Team Description 12/21/2017 Pharmacy [facility] [address] [facility] [place] [address] [phone] Type 2 diabetes mellitus with hemoglobin A1c goal of less than 7.0% ([facility])* 01/01/2018 Pharmacy Pharmacy [facility] [address] [facility] [place] [address] [phone] 01/11/2018 Procedure Only Endoscopy Janis Hatch DO [address] [place] [address] [phone] 01/19/2018 Imaging Radiology [address] [place] [address] [phone] 01/23/2018 Office Visit Gastroenterology Gadiel Pathak MD [address] [place], [place] [id number] 02/13/2018 Office Visit Family Practice Nancy Matute MD [address] [place], [place] [address] 02/23/2018 Office Visit Sleep Disorders [facility] Fields [facility] [address] [facility] [address] [phone] 02/26/2018 Office Visit Gastroenterology Lyssa Stout [facility] [address] [facility] [address] [phone] 03/20/2018 Office Visit Dermatology Rachel Hill MD [address] [place] [address] [phone] 08/07/2018 Office Visit Sleep Disorders [facility]ette Fields [facility] [address] [facility] [place] [address] [phone] Nurse [facility] [address] [facility] [address] [phone] 12/19/2018 Office Visit Gynecology Obstetrics Irene Mujica CRNP [address] [facility] [place] [address] [phone] Health Maintenance Due Date Last Done Comments [...] Subscriber ID Type Phone Address [facility] [id number] [employer] [id number] [facility] [id number] as of this encounter
--- OUTSIDE RECORDS SUMMARY | 2023-05-10 23:32 | External Medical Summary | Summary of Care ---
Author Name Unknown Organization [place] [address] Phone Care Team Providers Care Cuff Knitter Name Role Phone Nancy Matute MD Primary Care Provider Reason for Visit * Reason Comments FORMS REQUEST [facility] Encounter Details Date Type Department Care Team Description 12/04/2017 Telephone [id number] [place] [address] Nancy Matute MD [address] [place] [address] [phone] FORMS REQUEST ([facility]) Allergies Active Allergy Reactions Severity Noted Date [...] Inhaler 1 06/29/2016 Active Vitamin D, Ergocalciferol, 21756 UNITS CapsuleIndications: Vitamin D deficiency 1capsule every [...] daily. 90 Cap 1 07/19/2017 Active fexofenadine (BERANRDA) 180 MG TabletIndications:A llergic conjunctivitis of both [...] bedtime 30 Each 3 10/11/2017 Active nystatin 569159 UNIT/GM creamIndications:Ca ndidal vulvovaginitis Apply topically to affected area 2 times a day. To affacted area for two weeks. 15 g 2 10/12/2017 Active Blood Glucose Monitoring Suppl (ONETOUCH VERIO) w/Device KITIndications:Type 2 diabetes mellitus with hemoglobin A1c goal of less than 7.0% ([facility]) Use up to 4 times a day E11.9 1 Kit 0 10/17/2017 Active Hydrocodone-Acetami nophen (NORCO) 10-325 MG per tabletIndications:S jennifer stenosis of lumbar region without neurogenic claudication,DDD (degenerative disc disease), lumbar,MEDICATION USE AGREEMENT Take 1 Tab by mouth 2 times a day as needed for Pain. 60 Tab 0 11/09/2017 Active gabapentin (NEURONTIN) 300 MG Capsule One pill in am, one midday, two in pm, as directed, increase up to 2 capsules 3 times daily 180 Cap 5 11/16/2017 Active PredniSONE (DELTASONE) 10 MG TabletIndications:M oderate persistent asthma with exacerbation Take 5 tabs for 2 days, 4 tabs for 2 days, 3 tabs for 2 days, 2 tabs for 2 days 1 tab for 2 days 30 Tab 0 11/28/2017 Active Glucose Blood (ONETOUCH VERIO) STRP Use up to four times a day as directed.DX:E11 .9 400 Strip 3 12/04/2017 Active Glucose Blood (ONETOUCH VERIO) STRP Use up to four times a day as directed.DX:E11 .9 100 Strip 11 01/19/2017 12/05/19 18 Discontinued as of this encounter Active Problems Problem Noted Date Cirrhosis of liver (HCC) 11/20/2017 Bladder tumor 10/11/2017 Chronic indwelling Cline catheter 2017 Recurrent UTI 10/11/2017 Preoperative cardiovascular examination 10/11/2017 History of Clostridium difficile colitis 08/29/2017 Debility 07/19/2017 Body mass index (BMI) of 50.0 to 59.9 in adult ([facility]) 06/12/2017 Overview: Per Obesity protocol #1 Chronic pain syndrome 01/17/2017 MEDICATION USE AGREEMENT [...] Chronic rhinitis 03/27/2012 Cerebral palsy ([facility]) 01/24/2012 Obstructive sleep apnea 01/18/2011 Overview: 08/18/11 [...] Resolved Problems Problem Noted Date Resolved Date Atypical chest pain 08/19/2016 01/17/2017 Hepatic cirrhosis [...] BMI > 40) ([facility]) 02/09/2015 03/28/2017 THAD (obstructive sleep apnea) 02/09/2015 [...] pain 01/24/2012 01/17/2017 Genetic Sleep Disorder Research Other*[id number] 05/13/2011 04/07/2016 Lumbosacral spondylosis 12/27/2010 05/25/20 12 [...] encounter Miscellaneous Notes * Telephone Encounter - Karyn Ta OSA - 12/05/2017 8:18 AM EDT Form faxed * Telephone Encounter - Nancy Matute MD - 12/04/2017 4:45 PM EDT Signed. Nancy Matute MD * Telephone Encounter - Michaelle Lindquist LPN - 12/04/2017 2:59 PM EDT Placed on Dr Land desk for review and signature. * Telephone Encounter - Dulce Call OSA - 12/04/2017 9:58 AM EDT Physicians Orders In Giovani lauren in this encounter Plan of Treatment Upcoming Encounters Date Type Specialty Care Team Description 12/08/2017 Office Visit Gynecology Obstetrics Irene Mujica CRNP [address] [place] [address] [phone] 01/23/2018 Office Visit Gastroenterology Gadiel Pathak MD [address] [place] [address] [phone] 02/13/2018 Office Visit Family Practice Nancy Matute MD [address] [place] [address] [phone] 02/26/2018 Office Visit Gastroenterology Lyssa [facility]out [facility] [address] [facility] [address] [phone] 03/20/2018 Office Visit Dermatology Rachel Hill MD [address] [place] [address] [phone] 08/07/2018 Office Visit Sleep Disorders Lanette Fields CRNP [address] [facility] [address] [phone] Nurse [facility] [address] [place] [address] [phone] Health Maintenance Due Date Last Done Comments [...] Group Subscriber ID Type Phone Address [facility]UE [facility] BLUE [facility] [id number] [employer] [id number] [facility] [id number] as of this encounter
--- OUTSIDE RECORDS SUMMARY | 2023-05-10 23:32 | External Medical Summary | Summary of Care ---
Author Name Unknown Organization [place] [address] Phone Care Team Providers Care Loop Tacker Name Role Phone Nancy Matute MD Primary Care Provider [phone] Reason for Visit * Reason Comments FORMS REQUEST Encounter Details Date Type Department Care Team Description 12/05/2017 Telephone [address] [place] [address] Nancy Matute MD [address] [place] [address] [phone] FORMS REQUEST Allergies Active Allergy Reactions Severity [...] Inhaler 1 06/29/2016 Active Vitamin D, Ergocalciferol, 01109 UNITS CapsuleIndications:Vi tamin D deficiency 1capsule every other week 8 Cap 6 09/27/2016 Active potassium chloride ER 10 MEQ TBCRIndications:Hypok alemia Take 1 Tab by mouth 2 times a day. With food. 60 Tab 5 01/06/2017 Active Blood Glucose Monitoring Suppl (FlavourlyTOUCH VERIO) W/DEVICE KITIndications:Type 2 diabetes mellitus with hemoglobin A1c goal of less than 7.0% (HCC) Use as directed. Use daily to check blood sugars DX:E11.9 1 Kit 0 01/17/2017 Active Glucose Blood (FlavourlyTOUCH ULTRA BLUE) STRPIndications:Type 2 diabetes mellitus with [...] bedtime 30 Each 3 10/11/2017 Active nystatin 887852 UNIT/GM creamIndications:Cand idal vulvovaginitis Apply topically to affected area 2 times a day. To affacted area for two weeks. 15 g 2 10/12/2017 Active Blood Glucose Monitoring Suppl (ONETOUCH VERIO) w/Device KITIndications:Type 2 diabetes mellitus with hemoglobin A1c goal of less than 7.0% ([facility]) Use up to 4 times a day E11.9 1 Kit 0 10/17/2017 Active Hydrocodone-Acetamino phen (NORCO) 10-325 MG per [...] 5 11/16/2017 Active PredniSONE (DELTASONE) 10 MG TabletIndications:Mod erate persistent asthma with exacerbation Take 5 tabs for 2 days, 4 tabs for 2 days, 3 tabs for 2 days, 2 tabs for 2 days 1 tab for 2 days 30 Tab 0 11/28/2017 Active Glucose Blood (ONETOUCH VERIO) STRP Use up to four times a day as directed.DX:E11. 9 400 Strip 3 12/04/2017 Active as of this encounter Active Problems Problem Noted Date Cirrhosis of liver (HCC) 11/20/2017 Bladder tumor 10/11/2017 Chronic indwelling Cline catheter 2017 Recurrent UTI 10/11/2017 Preoperative cardiovascular examination 10/11/2017 History of Clostridium difficile colitis 08/29/2017 Debility 07/19/2017 Body mass index (BMI) of 50.0 to 59.9 in adult ([facility]) 06/12/2017 Overview: Per Obesity protocol #1 Chronic [...] Cerebral palsy ([facility]) 01/24/2012 Obstructive sleep apnea 01/18/2011 Overview: 08/18/11 [...] pain 08/19/2016 01/17/2017 Hepatic cirrhosis ([facility]) 08/19/2016 03/28/20 17 Polyuria 08/09/2016 01/17/2017 Urinary frequency 08/09/2016 01/17/2017 Generalized OA 06/14/2016 03/28/2017 Body mass index (BMI) of 45.0-49.9 in adult ([facility] ) 12/09/2015 01/17/2017 Overview: bmi= 48.04 12/09/15 Need for shingles vaccine 12/09/20152015 Bilateral shoulder pain 08/25/2015 06/07/20 16 Bilateral shoulder pain 07/16/2015 06/07/20 16 Cerebral palsy ([facility]) 04/23/2015 03/28/2017 Candidal vulvovaginitis 02/12/2015 06/07/20 16 Obesity, morbid (more than 1 00 lbs over ideal weight or BMI > 40) ([facility]) 02/09/2015 03/28/2017 THAD (obstructive sleep apnea) 02/09/2015 [...] pain 01/24/2012 01/17/2017 Genetic Sleep Disorder Research Other*[id number] 05/13/2011 04/07/2016 Lumbosacral spondylosis 12/27/2010 05/25/20 12 [...] Telephone Encounter - Nancy Matute MD - 12/05/2017 4:23 PM EDT Signed. Nancy Matute MD * Telephone Encounter - Michaelle Lindquist LPN - 12/05/2017 2:25 PM EDT [facility] form for pt Placed on Dr Land desk for review and signature. in this encounter Plan of Treatment Upcoming Encounters Date Type Specialty Care Team Description 12/08/2017 Office Visit Gynecology Obstetrics Irene Mujica CRNP [address] [place] [address] [phone] 01/23/2018 Office Visit Gastroenterology Gadiel Pathak MD [address] [place], [place] [address] 02/13/2018 Office Visit Family Practice Nancy Mtaute MD [address] [place] [address] [phone] 02/26/2018 Office Visit Gastroenterology Lyssa Stout CRNP [address] [place] [address] [phone] 03/20/2018 Office Visit Dermatology Rachel Hill MD [address] [place] [address] [phone] 08/07/2018 Office Visit Sleep Disorders Lanette Fields CRNP [address] [place] [address] [place], Nurse Sleep Disorders [address] [place] [address] [phone] Health Maintenance Due Date Last Done Comments [...] Type Phone Address [facility] [id number] [employer] [id number] [facility] [id number] as of this encounter
--- OUTSIDE RECORDS SUMMARY | 2023-05-10 23:32 | External Medical Summary | Summary of Care ---
Author Name Unknown Organization [place] [address] Phone Care Team Providers Care Acoustical Tile Drill Press Operator Name Role Phone Nancy Matute MD Primary Care Provider [phone] Reason for Visit * Reason Comments ADVICE Encounter Details Date Type Department Care Team Description 12/21/2017 Telephone [address] [place] [address] Nancy Matute MD [address] [place] [address] [phone] ADVICE Allergies Active Allergy Reactions Severity Noted [...] Inhaler 1 06/29/2016 Active Vitamin D, Ergocalciferol, 14354 UNITS CapsuleIndications:Vi tamin D deficiency 1capsule every other week 8 Cap 6 09/27/2016 Active potassium chloride ER 10 MEQ TBCRIndications:Hypok alemia Take 1 Tab by mouth 2 times a day. With food. 60 Tab 5 01/06/2017 Active Blood Glucose Monitoring Suppl (Gallery AlSharqTOUCH VERIO) W/DEVICE KITIndications:Type 2 diabetes mellitus with hemoglobin A1c goal of less than 7.0% (HCC) Use as directed. Use daily to check blood sugars DX:E11.9 1 Kit 0 01/17/2017 Active Glucose Blood (Gallery AlSharqTOUCH ULTRA BLUE) STRPIndications:Type 2 diabetes mellitus with [...] Active albuterol-ipratropium (DUONEB) 2.5-0.5 MG/3ML nebulizer solutionIndications:A [facility] exacerbation Use 1 vial in nebulizer 180 [...] bedtime 30 Each 3 10/11/2017 Active nystatin 702643 UNIT/GM creamIndications:Cand idal vulvovaginitis Apply topically to [...] pain 01/24/2012 01/17/2017 Genetic Sleep Disorder Research Other*[id number] 05/13/2011 04/07/2016 Lumbosacral spondylosis 12/27/2010 05/25/20 12 [...] Telephone Encounter - Susan Rosales RN - 12/21/2017 2:23 PM EDT Called patient spoke to both patient and her and they will take her to the ER * Telephone Encounter - Carter Chan MD [...] from 10 units to 15 units. Pt: [phone] * Telephone Encounter - Gabi Meraz LPN [...] patient's call: Advise Caller was transferred to [facility] at the dedicated phone nurse line. in this encounter Plan of Treatment Upcoming Encounters Date Type Specialty Care Team Description 12/21/2017 [facility] [address] [place] [address] [phone] Type 2 diabetes mellitus with hemoglobin A1c goal of less than 7.0% ([facility])* 01/01/2018 Pharmacy Pharmacy [facility] [address] [place] [address] [phone] 01/11/2018 Procedure Only Endoscopy Janis Hatch DO [address] [place] [address] [phone] 01/19/2018 [facility] [facility] [place] [address] [phone] 01/23/2018 Office Visit Gastroenterology Gadiel Pathak MD [address] [place] [address] 02/13/2018 Office Visit Family Practice Nancy Matute MD [address] [place] [address] [phone] 02/23/2018 Office Visit Sleep Disorders [facility]ette Fields [facility] [address] [facility] [address] [phone] 02/26/2018 Office Visit Gastroenterology Lyssa Stout CRNP [address] [facility] [place] [address] [phone] 03/20/2018 Office Visit Dermatology Rachel Hill MD [address] [place] [address] [phone] 08/07/2018 Office Visit Sleep Disorders Lanette Fields CRNP [address] [facility] [place] [address] [phone] Nurse [facility] [address] [facility] [place] [address] [phone] 12/19/2018 Office Visit Gynecology Obstetrics Irene Mujica CRNP [address] [facility] [place] [address] [phone] Health Maintenance Due Date Last Done Comments [...] Group Subscriber ID Type Phone Address [facility]UE [facility]UE [facility] [id number] [employer] [id number] [facility] [id number] as of this encounter
--- OUTSIDE RECORDS SUMMARY | 2023-05-10 23:32 | External Medical Summary | Summary of Care ---
Author Name Unknown Organization [place] [address] Phone Care Team Providers Care Hair Spring Winder Name Role Phone Nancy Roberts MD Primary Care Provider [phone] Reason for Visit * Reason Comments MEDICATION REFILL Encounter Details Date Type Department Care Team Description 12/11/[address] [address] Nancy Roberts MD [address] [place] [address] [phone] Spinal stenosis of lumbar region without neurogenic [...] Inhaler 1 06/29/2016 Active Vitamin D, Ergocalciferol, 28815 UNITS CapsuleIndications: Vitamin D deficiency 1capsule every [...] bedtime 30 Each 3 10/11/2017 Active nystatin 201245 UNIT/GM creamIndications:Ca ndidal vulvovaginitis Apply topically to affected area 2 times a day. To affacted area for two weeks. 15 g 2 10/12/2017 Active Blood Glucose Monitoring Suppl (HealcerionTOUCH VERIO) w/Device KITIndications:Type 2 diabetes mellitus with hemoglobin A1c goal of less than 7.0% ([facility]) Use up to 4 times a day E11.9 1 Kit 0 10/17/2017 Active gabapentin (NEURONTIN) 300 MG Capsule One pill in am, one midday, two in pm, as directed, increase up to 2 capsules 3 times daily 180 Cap 5 11/16/2017 Active Glucose Blood (HealcerionTOUCH VERIO) STRP Use up to four times a day as directed.DX:E11 .9 400 Strip 3 12/04/2017 Active Hydrocodone-Acetami nophen (NORCO) 10-325 MG per tabletIndications:S jennifer stenosis of lumbar region without neurogenic claudication,DDD (degenerative disc disease), lumbar,MEDICATION USE AGREEMENT Take 1 Tab by mouth 2 times a day as needed for Pain. 60 Tab 0 12/11/2017 Active Hydrocodone-Acetami nophen (NORCO) 10-325 MG per tabletIndications:S jennifer stenosis of lumbar region without neurogenic claudication,DDD (degenerative disc disease), lumbar,MEDICATION USE AGREEMENT Take 1 Tab by mouth 2 times a day as needed for Pain. 60 Tab 0 11/09/2017 12/12/19 18 Discontinued as of this encounter Active Problems Problem Noted Date Cirrhosis of liver ([facility]) 11/20/2017 Bladder tumor 10/11/2017 Chronic indwelling Cline catheter 2017 Recurrent UTI 10/11/2017 Preoperative cardiovascular examination 10/11/2017 History of Clostridium difficile colitis 08/29/2017 Debility 07/19/2017 Body mass index (BMI) of 50.0 to 59.9 in adult ([facility]) 06/12/2017 Overview: Per Obesity protocol #1 Chronic [...] 140/90 03/27/2012 Chronic rhinitis 03/27/2012 Cerebral palsy ([facility]) 01/24/2012 Obstructive sleep apnea [...] pain 01/24/2012 01/17/2017 Genetic Sleep Disorder Research Other*[id number] 05/13/2011 04/07/2016 Lumbosacral spondylosis 12/27/2010 05/25/20 12 Dyslipidemia, goal LDL below 130 06/01/2010 03/28/2012 Asthma with severity to be determined 03/04/2010 11/01/2011 Overview: Per Asthma Taxonomy ICD-10 update of inactive term Asthma in remission 03/04/2010 01/09/2013 Overview: Per Provider Protocol. Obesity, morbid (more than 1 00 lbs over ideal weight or BMI > 40) ([facility]) 12/08/2009 07/02/2014 Overview: Per [...] Telephone Encounter - Nancy Roberts MD - 12/11/2017 1:20 PM EDT Signed Prescriptions: Disp Refills Hydrocodone-Acetaminophen (NORCO) 10-325 M*60 Tab 0 Sig: Take 1 Tab by mouth 2 times a day as needed for Pain. Authorizing Provider: Nancy ROBERTS * Telephone Encounter - Lincoln Turner [facility] - 12/11/2017 9:18 AM EDT I have reviewed the patients controlled substance dispensing history in the Prescription Drug Monitoring Program in compliance with the [facility] regulations before prescribing a controlled substance. PDMP checked on 12/11/2017. Patient requesting: Hydrocodone-apap 10-325 mg, filled 11/09/17, for #60 for a 30 day supply. Other recent controlled medication fills: Oxycodone IR 5 mg, filled 10/30/17, for #10 for a 1 day supply. Medication due for refill: yes Please approve if appropriate. Lincoln Turner, Pharm.D. Staff Pharmacist Refill Call Center 12/11/2017, 9:19 AM * Telephone Encounter - Jaci Bangura [facility] - 12/11/2017 8:38 AM EDT Formatting of this note may be different from the original. Pending Prescriptions: Disp Refills Hydrocodone-Acetaminophen (NORCO) 10-325 *60 Tab 0 Sig: Take 1 Tab by mouth 2 times a day as needed for Pain. Last Office Visit: 11/28/2017 Next Office Visit: 02/13/2018 Scheduled Provider(s): Nancy Roberts MD If no future appointments scheduled, and last appointment is greater than a year ago, please schedule patient for a follow-up appointment Last date the medication was ordered: [id number] Jaci Jiang [facility] Refill Call Center 12/11/2017,8:38 AM Patient Phone Numbers Labs: Lab Results Component [...] Team Description 01/19/2018 Imaging Radiology [id number] [address] [facility] [place] [address] PMB (postmenopausal bleeding) 01/23/2018 Office Visit Gastroenterology Gadiel Pathak MD [address] [place] [address] [phone] 02/13/2018 Office Visit Family Practice Nancy Roberts MD [address] [place] [address] [phone] 02/26/2018 Office Visit Gastroenterology Lyssa Stout CRNP [address] [facility] [place] [address] [phone] 03/20/2018 Office Visit Dermatology Rachel Hill MD [address] [place] [address] [phone] 08/07/2018 Office Visit Sleep Disorders Lanette Fields CRNP [address] [place] [address] [phone] Nurse [facility] [address] [facility] [place] [address] [phone] 12/19/2018 Office Visit Gynecology Obstetrics Irene Mujica CRNP [address] [place] [address] [phone] Health Maintenance Due Date Last Done Comments [...] disc MEDICATION USE AGREEMENT in this encounter Insurance Payer Benefit Plan / Group Subscriber ID Type Phone Address [facility] [id number] [employer] [id number] [facility] [id number] as of this encounter
--- OUTSIDE RECORDS SUMMARY | 2023-05-10 23:32 | External Medical Summary | Summary of Care ---
Author Name Unknown Organization [place] [address] Phone Care Team Providers Care Director Of Home Care Hospice Name Role Phone Nancy Matute MD Primary Care Provider [phone] Reason for Visit * Reason Comments FORMS REQUEST Encounter Details Date Type Department Care Team Description 12/05/2017 Telephone [place] [address] [place] [address] Nancy Matute MD [address] [place] [address] [phone] FORMS REQUEST Allergies Active Allergy Reactions Severity [...] Inhaler 1 06/29/2016 Active Vitamin D, Ergocalciferol, 99808 UNITS CapsuleIndications:Vi tamin D deficiency 1capsule every other week 8 Cap 6 09/27/2016 Active potassium chloride ER 10 MEQ TBCRIndications:Hypok alemia Take 1 Tab by mouth 2 times a day. With food. 60 Tab 5 01/06/2017 Active Blood Glucose Monitoring Suppl (SkyRecon SystemsTOUCH VERIO) W/DEVICE KITIndications:Type 2 diabetes mellitus with hemoglobin A1c goal of less than 7.0% ([facility]) Use as directed. Use daily to check blood sugars DX:E11.9 1 Kit 0 01/17/2017 Active Glucose Blood (SkyRecon SystemsTOUCH ULTRA BLUE) STRPIndications:Type 2 diabetes mellitus with [...] bedtime 30 Each 3 10/11/2017 Active nystatin 105487 UNIT/GM creamIndications:Cand idal vulvovaginitis Apply topically to affected area 2 times a day. To affacted area for two weeks. 15 g 2 10/12/2017 Active Blood Glucose Monitoring Suppl (ONETOUCH VERIO) w/Device KITIndications:Type 2 diabetes mellitus with hemoglobin A1c goal of less than 7.0% ([facility]) Use up to 4 times [...] (BMI) of 50.0 to 59.9 in adult ([facility]) 06/12/2017 Overview: Per Obesity protocol [...] 140/90 03/27/2012 Chronic rhinitis 03/27/2012 Cerebral palsy ([facility]) 01/24/2012 Obstructive sleep apnea 01/18/2011 [...] Atypical chest pain 08/19/2016 01/17/2017 Hepatic cirrhosis ([facility] [...] pain 01/24/2012 01/17/2017 Genetic Sleep Disorder Research Other*[id number] 05/13/2011 04/07/2016 Lumbosacral spondylosis 12/27/2010 05/25/20 12 [...] Telephone Encounter - Karyn Ta OSA - 12/06/2017 8:13 AM EDT Form faxed * Telephone Encounter [...] Irene Mujica CRNP [address] [place] [address] [phone] 01/23/2018 Office Visit Gastroenterology Gadiel Pathak MD [address] [place], [place] [id number] 02/13/2018 Office Visit Family Practice Nancy Matute MD [address] [place] [address] [phone] 02/26/2018 Office Visit [facility]enterology [facility]out [facility] [address] [facility] [place] [address] [phone] 03/20/2018 Office Visit Dermatology Rachel Hill MD [address] [place] [address] [phone] 08/07/2018 Office Visit Sleep Disorders Lanette Fields CRNP [address] [place] [address] [phone] Nurse [facility]rell [facility] [address] [place] [address] [phone] Health Maintenance Due Date Last Done Comments [...] / Group Subscriber ID Type Phone Address [facility] [id number] [employer] [id number] [facility] [id number] as of this encounter
--- OUTSIDE RECORDS SUMMARY | 2023-05-10 23:32 | External Medical Summary | Summary of Care ---
Author Name Unknown Organization [place] [address] Phone Care Team Providers Care Salesperson Furniture Name Role Phone Nancy Matute MD Primary Care Provider [phone] Reason for Visit * Reason Comments PHYSICAL-EXAM Encounter Details Date Type Department Care Team Description 12/08/2017 Office Visit [facility] Gynecology/Obstetrics [address] [facility] [place] [address] Irene Mujica CRNP [address] [facility] [place] [address] [phone] Encounter for gynecological examination without abnormal finding*;PMB (postmenopausal bleeding) Allergies Active Allergy Reactions Severity Noted Date [...] Inhaler 1 06/29/2016 Active Vitamin D, Ergocalciferol, 24088 UNITS CapsuleIndications: Vitamin D deficiency 1capsule every [...] [facility]) Use with Lantus Solostar at bedtime 30 Each 3 10/11/2017 Active nystatin 066729 UNIT/GM creamIndications:Ca ndidal vulvovaginitis Apply topically to affected area 2 times a day. To affacted area for two weeks. 15 g 2 10/12/2017 Active Blood Glucose Monitoring Suppl (ONETOUCH VERIO) w/Device KITIndications:Type 2 diabetes mellitus with hemoglobin A1c goal of less than 7.0% ([facility]) Use up to 4 times [...] 3 12/04/2017 Active PredniSONE (DELTASONE) 10 MG TabletIndications:M oderate persistent asthma with exacerbation Take 5 tabs for 2 days, 4 tabs for 2 days, 3 tabs for 2 days, 2 tabs for 2 days 1 tab for 2 days 30 Tab 0 11/28/2017 12/09/19 18 Discontinued as of this encounter Active Problems Problem Noted Date Cirrhosis of liver ([facility]) 11/20/2017 Bladder tumor 10/11/2017 Chronic indwelling Cline catheter 2017 Recurrent UTI 10/11/2017 Preoperative cardiovascular examination 10/11/2017 History of Clostridium difficile colitis 08/29/2017 Debility 07/19/2017 Body mass index (BMI) of 50.0 to 59.9 in adult ([facility]) 06/12/2017 Overview: Per Obesity protocol [...] Chronic rhinitis 03/27/2012 Cerebral palsy ([facility]) 01/24/2012 Obstructive sleep apnea 01/18/2011 [...] pain 01/24/2012 01/17/2017 Genetic Sleep Disorder Research Other*[id number] 05/13/2011 04/07/2016 Lumbosacral spondylosis 12/27/2010 05/25/20 12 [...] Sign Reading Time Taken Blood Pressure 124/70 12/08/2017 1:54 PM EDT Pulse - - Temperature - - Respiratory Rate - - Oxygen Saturation - - Inhaled Oxygen Concentration - - Weight 115.7 kg (255 lb) 12/08/2017 1:5 4 PM EDT Height 149.9 cm (4' 11") 12/08/2017 1:5 4 PM EDT Body Mass Index 51.5 12/08/2017 1:54 PM EDT in this encounter Progress Notes * Irene Mujica CRNP - 12/08/2017 2:40 PM EDT Formatting of this note may be different from the original. CC: Annual Exam HPI: The patient is a 62 year old postmenopausal female here for an annual exam. She is wheelchair dependent. Was admitted at [facility] recently with VRE UTI. She also states that she had ?PMB earlier this month. Was at ED on 11/17/17 (scanned into chart). [place] bleeding in toilet on 11/16, then woke up in the morning on 11/17 with a significant amount of blood in her Depend. Went to ED. U/s done, showing normal uterus, endometrial stripe 4mm. No bleeding in vaginal canal per note. Has had no bleeding since that time. She denies vaginal bleeding, vaginal dryness, or hot flashes. She has significant urinary incontinence, especially with cough. Has chronic cough. She has been doing her BSE. Had pap in 2017. Thinks she has scheduled for later this year, [facility]. She denies a hx of abnormal pap smears. Last pap 2017. 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 03/27/2012: MEDICATION USE AGREEMENT Comment: 03/27/12 03/27/2012: Myalgia and myositis 05/02/2012: NG (nonalcoholic steatohepatitis) No date: Other specified infantile cerebral palsy 12/2014: Restrictive lung disease No date: Sleep apnea Comment: CPAP 01/24/2012: Sleep disturbance Past Surgical History: Procedure Laterality Date DELIVERY 04/20/1982 COLONOSCOPY 04/21/09 repeat in 10 years COLONOSCOPY, DIAGNOSTIC (RECTUM) 10/04/2016 normal bx, repeat 10 yrs/[facility] DENTAL SURGERY PROCEDURE NEC wisdom teeth x 4 DILATION AND CURETTAGE (D&C) EGD, FLEXIBLE, DIAGNOSTIC 10/04/2016 [facility] PELVIS/HIP JOINT SURGERY NEC teenager aid in walking REPAIR/GRAFT ACHILLES TENDON age 40 aid in walking OB History Para Term AB Living 1 1 1 1 SAB TAB Ectopic Multiple Live Births # Outcome Date GA Lbr Mike/2nd Weight Sex Delivery Anes PTL Lv 1 Term Obstetric Comments c /s x 1 Family Hx: Family History Problem Relation Age of Onset Heart Disorder Father of [place] at age 61 Heart Disorder Mother of [place] age 72 Diabetes Father Cancer None Arthritis None Stroke None Heart Disorder Sister Mi at age 46 Hypertension Sister Mental Disorder None Social History Substance Use Topics Smoking status: Never Smoker Smokeless tobacco: Never Used Alcohol use No Comment: rare Medications: Current Outpatient Prescriptions Medication Sig Dispense [...] 30 g 1 Blood Glucose Monitoring Suppl (Videostrip) W/DEVICE KIT Use as directed. Use daily to check blood sugars DX:E11.9 1 Kit 0 Blood Glucose Monitoring Suppl (Videostrip) w/Device KIT Use up to 4 times a day E11.9 1 Kit 0 CENTRUM SILVER PO TABS 1 tab daily 1 Tab 0 escitalopram (LEXAPRO) 10 MG Tablet Take 15 Tabs by mouth daily. 0 fexofenadine (BERNARDA) 180 MG Tablet One pill by mouth once a day as needed for allergies 30 Tab 11 fluticasone (FLONASE) 50 MCG/ACT nasal spray Administer 2 Sprays into each nostril daily. 1 Inhaler 5 gabapentin (NEURONTIN) 300 MG Capsule One pill in am, one midday, two in pm, as directed, increase up to 2 capsules 3 times daily 180 Cap 5 Glucosamine-Chondroitin (GLUCOSAMINE CHONDR COMPLEX) 500-400 MG Capsule Take 1 Cap by mouth 3 times a day. 1 Cap 0 Glucose Blood (JulepUCH ULTRA BLUE) STRP Use as directed 4 times a day as needed for Other (Usedaily to check blood sugars DX:E11.9). Use up to four times a day as directed 100 Strip 11 Glucose Blood (BugsnagTOUCH VERIO) STRP Use up to four times [...] Sprinkle over affectedarea. 1 Bottle 1 nystatin 912942 UNIT/GM cream Apply topically to affected area [...] a day. With food. 60 Tab 5 traZODone (DESYREL) 50 MG Tablet take 1 tablet by mouth at bedtime 30 Tab 5 Vitamin D, Ergocalciferol, 80556 UNITS Capsule 1capsule every other week 8 Cap 6 busPIRone (BUSPAR) 10 MG Tablet 0 furosemide (LASIX) 20 MG Tablet One pill by mouth once a day, as needed for edema 30 Tab 5 Allergies: Review of patient's allergies indicates: Allergen Reactions Pcn [Penicillins] Rash ROS: 10 point review of systems completed, pertinent positives in HPI Physical Exam BP 124/70 | Ht 4' 11" (1.499m) | Wt 255 lbs (115.667kg) | BMI 51.5 kg/m | BSA 2.19 m General: awake, alert, and oriented x 3, NAD Cardiac: regular rate and rhythm Lungs: +rhonchi and wheezes bilaterally Abdomen: obese Neuro: limited mobility of BLE. Unable to abduct hips, minimal ambulation Breasts: no nipple retraction or dimpling, no nipple discharge or bleeding, no axillary or supraclavicular adenopathy, normal to palpation without dominant masses Pelvic: external genitalia and vagina anatomy within normal limits, no vulvar lesions, no significant vaginal discharge, limited visualization of cervix d/t difficulty with positioning and discomfort. No cervical anomalies noted, no bleeding or lesions, palpation of uterus and ovaries not possible d/t body habitus. Assessment/Plan: Z01.419 Encounter for gynecological examination without abnormal finding (primary encounter diagnosis) N95.0 Pmb (postmenopausal bleeding)-- will attempt repeat u/s in about 6-8 weeks to see if any changes in endometrial stripe. Pt aware that positioning on to table may be difficult. Plan: Us pelvis trans-abdominal Us pelvis trans-vaginal non-ob Follow up: Return in about 1 year (around 12/08/2018) for annual. Call the office with any problems, questions, concerns ZAK Fu in this encounter Nursing Notes * Karen Amin RN - 12/08/2017 1:57 PM EDT Patient identified Shaina Bustos by name and date of . Patient here for yearly exam. Complaints: Pt here for yearly, but did have some ?vag bleeding x 1 bright red in diaper. Last pap: 09/2016 wnl Last Mammogram: 01/2017 wnl Last Dexa: na Last Colonoscopy: 2016 Type of Contraception: post Pt here for chlamydia screen. no Does the patient have an advance directed? Not applicable (under age of 18) [facility] is a way you can talk to your provider online through e-mail. May I activate it for you? NO Do you need any refills while you are here? no Karen Amin RN 12/08/2017 1:57 PM in this encounter Plan of Treatment Upcoming Encounters Date Type Specialty Care Team Description 01/19/2018 Imaging Radiology Gwus2 [address] [facility] [place] [address] PMB (postmenopausal bleeding) 01/23/2018 Office Visit Gastroenterology Gadiel Pathak MD [address] [place] [address] 02/13/2018 Office Visit Family Practice Nancy Matute MD [address] [place] [address] [phone] 02/26/2018 Office Visit [facility]ology [facility] [address] [facility] [address] [phone] 03/20/2018 Office Visit Dermatology Rachel Hill MD [address] [place] [address] [phone] 08/07/2018 Office Visit Sleep Disorders Lanette Fields CRNP [address] [place] [address] [phone] [place], Nurse Sleep Disorders [address] [place] [address] [phone] 12/19/2018 Office Visit Gynecology Obstetrics [place], ZAK White [address] [place] [address] [phone] Scheduled Tests Name Priority Associated Diagnoses Order S chedule US PELVIS TRANS-ABDOMINAL Routine PMB (postmenopausal bleeding) Expected: 01/26/2018 (Approximate), Expires: 01/08/2019 US PELVIS TRANS-VAGINAL NON-OB Routine PMB (postmenopausal bleeding) Expected: 01/26/2018, Expires: 01/08/2019 Health Maintenance Due Date Last Done Comments [...] this encounter Visit Diagnoses Diagnosis Encounter for gynecological examination without abnormal finding - Primary Routine gynecological examination PMB (postmenopausal bleeding ) Postmenopausal bleeding in this encounter Insurance Payer Benefit Plan / Group Subscriber ID Type Phone Address [facility] [id number] [employer]ETNA [facility] [id number] [facility] [id number] as of this encounter
--- OUTSIDE RECORDS SUMMARY | 2023-05-10 23:33 | External Medical Summary | Summary of Care ---
Author Name Unknown Organization [place] [address] Phone Care Team Providers Care Poacher Wringer Operator Name Role Phone Nancy Matute MD Primary Care Provider [phone] Reason for Visit * Reason Comments HOSPITAL FOLLOW-UP Encounter Details Date Type Department Care Team Description 11/27/[address] [address] July Warner RN HOSPITAL FOLLOW-UP Allergies Active Allergy Reactions Severity Noted [...] Inhaler 1 06/29/2016 Active Vitamin D, Ergocalciferol, 87328 UNITS CapsuleIndications:Vi tamin D deficiency 1capsule every other week 8 Cap 6 09/27/2016 Active potassium chloride ER 10 MEQ TBCRIndications:Hypok alemia Take 1 Tab by mouth 2 times a day. With food. 60 Tab 5 01/06/2017 Active Blood Glucose Monitoring Suppl (HansoftTOUCH VERIO) W/DEVICE KITIndications:Type 2 diabetes mellitus with hemoglobin A1c goal of less than 7.0% (HCC) Use as directed. Use daily to check blood sugars DX:E11.9 1 Kit 0 01/17/2017 Active Glucose Blood (HansoftTOUCH ULTRA BLUE) STRPIndications:Type 2 diabetes mellitus with [...] 1 Box Dosing Unit 11 01/17/2017 Active Glucose Blood (ONETOUCH VERIO) STRP Use up to four times a day as directed.DX:E11. 9 100 Strip 11 01/19/2017 Active busPIRone (BUSPAR) 10 MG Tablet 0 [...] Active albuterol-ipratropium (DUONEB) 2.5-0.5 MG/3ML nebulizer solutionIndications:A [facility] exacerbation Use 1 vial in nebulizer 180 [...] than 7.0% ([facility]) Use with Lantus Solostar at bedtime 30 Each 3 10/11/2017 Active nystatin 888529 UNIT/GM creamIndications:Cand idal vulvovaginitis Apply topically to affected area 2 times a day. To affacted area for two weeks. 15 g 2 10/12/2017 Active Blood Glucose Monitoring Suppl (Tadcast VERIO) w/Device KITIndications:Type 2 diabetes mellitus with hemoglobin A1c goal of less than 7.0% ([facility]) Use up to 4 times a [...] times daily 180 Cap 5 11/16/2017 Active as of this encounter Active Problems Problem Noted Date Cirrhosis of liver ([facility]) 11/20/2017 Bladder tumor 10/11/2017 Chronic indwelling Cline catheter 2017 Recurrent UTI 10/11/2017 Preoperative cardiovascular examination 10/11/2017 History of Clostridium difficile colitis 08/29/2017 Debility 07/19/2017 Body mass index (BMI) of 50.0 to 59.9 in adult ([facility]) 06/12/2017 Overview: Per Obesity protocol #1 Chronic [...] MEDICATION USE AGREEMENT 03/27/2012 017 Overview: 7/17/12 UTI (urinary tract infection) 01/27/2012 Sleep disturbance 01/24/2012 07/02/2014 Malaise and fatigue 01/24/2012 06/07/2016 Myalgia and myositis 01/24/2012 06/07/2016 Urinary frequency 01/24/2012 07/02/2014 Urgency of urination 01/24/2012 06/07/2016 Kidney disease, chronic, stage III (GFR 30-59 ml /min) 01/24/2012 03/27/2012 Chronic pain 01/24/2012 01/17/2017 Genetic Sleep Disorder Research Other*[id number] 05/13/2011 04/07/2016 Lumbosacral spondylosis 12/27/2010 05/25/20 12 [...] Miscellaneous Notes * Telephone Encounter - July Warner RN - 11/29/2017 12:43 PM EDT Hospital f/u apt completed yesterday. * Telephone Encounter - July Warner RN - 11/27/2017 12:56 PM EDT Transitions of Care Note Reason for Referral:Recent Admission Attempted both numbers listed. Left message to call and press 3. July Warner RN in this encounter Plan of Treatment Upcoming Encounters Date Type Specialty Care Team Description 12/08/2017 Office Visit Gynecology Obstetrics Irene Mujica CRNP [address] [place] [address] [phone] 01/23/2018 Office Visit Gastroenterology Gadiel Pathak MD [address] [place], [place] [id number] 02/13/2018 Office Visit Family Practice Nancy Matute MD [address] [place] [address] [phone] 02/26/2018 Office Visit Gastroenterology Lyssa Stout CRNP [address] [place] [address] [phone] 03/20/2018 Office Visit Dermatology Rachel Hill MD [address] [place] [address] [phone] 08/07/2018 Office Visit Sleep Disorders Lanette Fields [facility] [address] [facility] [address] [phone] [place] Nurse Sleep Disorders [address] [place] [address] [phone] Health Maintenance Due Date Last Done Comments [...] Group Subscriber ID Type Phone Address [facility] [id number] [employer] [id number] [facility] [id number] as of this encounter
--- OUTSIDE RECORDS SUMMARY | 2023-05-10 23:33 | External Medical Summary | Summary of Care ---
Author Name Unknown Organization [place] [address] Phone Care Team Providers Care Stock Preparation Supervisor Name Role Phone Nancy Matute MD Primary Care Provider [phone] Encounter Details Date Type Department Care Team Description 10/30/2017 Result Scan [facility] [address] [place] [address] Nancy Matute MD [address] [place] [address] [phone] <No scans attached> Allergies Active Allergy Reactions [...] Inhaler 1 06/29/2016 Active Vitamin D, Ergocalciferol, 85690 UNITS CapsuleIndications:Vi tamin D deficiency 1capsule every [...] 1 Kit 0 01/17/2017 Active Glucose Blood (Diet TVTOUCH ULTRA BLUE) STRPIndications:Type 2 diabetes mellitus with [...] Active albuterol-ipratropium (DUONEB) 2.5-0.5 MG/3ML nebulizer solutionIndications:A [facility] exacerbation Use 1 vial in nebulizer 180 [...] 7.0% ([facility]) 10 units at bed time 5 Pre-filled Pen Syringe Dosing Unit 3 10/11/2017 Active Insulin Pen Needle 31G X 6 MM MISCIndications:Type 2 diabetes mellitus with hemoglobin A1c goal of less than 7.0% ([facility]) Use with Lantus Solostar at bedtime 30 Each 3 10/11/2017 Active nystatin 772383 UNIT/GM creamIndications:Cand idal vulvovaginitis Apply topically to affected area 2 times a day. To affacted area for two weeks. 15 g 2 10/12/2017 Active Blood Glucose Monitoring Suppl (EvalYou VERIO) w/Device KITIndications:Type 2 diabetes mellitus with hemoglobin A1c goal of less than 7.0% ([facility]) Use up to 4 times a day E11.9 1 Kit 0 10/17/2017 Active as of this encounter Active Problems Problem Noted Date Cirrhosis of liver ([facility]) 11/20/2017 Bladder tumor 10/11/2017 Chronic [...] CENTER) 01/24/2012 Obstructive sleep apnea 01/18/2011 Overview: 12/8/11 -- BIPAP auto: max IPAP [...] pain 01/24/2012 01/17/2017 Genetic Sleep Disorder Research Other*[id number] 05/13/2011 04/07/2016 Lumbosacral spondylosis 12/27/2010 05/25/20 12 [...] Visit Gynecology Obstetrics [facility]ica CR[facility] [address] [facility] [address] [phone] 01/23/2018 Office Visit Gastroenterology Gadiel Pathak MD [address] [facility] [address] [phone] 02/13/2018 Office Visit Family Practice Nancy Matute MD [address] [place] [address] 02/26/2018 Office Visit Gastroenterology Lyssa Stout CRNP [address] [facility] [place] [address] [phone] 03/20/2018 Office Visit Dermatology Rachel Hill MD [address] [place] [address], [place] [address] [phone] 08/07/2018 Office Visit Sleep Disorders Lanette Fields CRNP [address] [facility] [place] [address] [phone] [place], Nurse Sleep Disorders [address] [place] [address] [phone] Health Maintenance Due Date Last Done Comments [...] on fileas of this encounter Results * PATHOLOGY SCANNED RESULT (10/30/2017) in this encounter Insurance Payer Benefit Plan / Group Subscriber ID Type Phone Address [facility] [id number] [employer]ET[employer] [facility] [id number] [facility] [id number] as of this encounter
--- OUTSIDE RECORDS SUMMARY | 2023-05-10 23:33 | External Medical Summary | Summary of Care ---
Author Name Unknown Organization [place] [address] Phone Care Team Providers Care Glass Tinter Name Role Phone Nancy Roberts MD Primary Care Provider [phone] Reason for Visit * Reason Comments MEDICATION REFILL Encounter Details Date Type Department Care Team Description 12/04/[address] [address] Nancy Roberts MD [address] [place] [address] [phone] Allergies Active Allergy Reactions Severity Noted Date [...] Inhaler 1 06/29/2016 Active Vitamin D, Ergocalciferol, 12294 UNITS CapsuleIndications: Vitamin D deficiency 1capsule every [...] 1 Kit 0 01/17/2017 Active Glucose Blood (ChosenList.comTOUCH ULTRA BLUE) STRPIndications:Typ e 2 diabetes mellitus [...] 7.0% ([facility]) Use with Lantus Solostar at bedtime 30 Each 3 10/11/2017 Active nystatin 850855 UNIT/GM creamIndications:Ca ndidal vulvovaginitis Apply topically to affected area 2 times a day. To affacted area for two weeks. 15 g 2 10/12/2017 Active Blood Glucose Monitoring Suppl (ONETOUCH VERIO) w/Device KITIndications:Type 2 diabetes mellitus with hemoglobin A1c goal of less than 7.0% ([facility]) Use up to 4 times a day [...] 50.0 to 59.9 in adult ([facility]) 06/12/2017 Overview: Per Obesity protocol #1 Chronic [...] ([facility]) 09/26/2013 Overview: ICD-10 update of inactive [...] 40) ([facility]) 02/09/2015 03/28/2017 THAD (obstructive sleep apnea) [...] 40) ([facility]) 10/28/2013 01/17/2017 Overview: bmi= 53.93 10/28/13 [...] 40) ([facility]) 05/25/2012 01/17/2017 Overview: BMI= 55.27 05/25/12 [...] pain 01/24/2012 01/17/2017 Genetic Sleep Disorder Research Other*[id number] 05/13/2011 04/07/2016 Lumbosacral spondylosis 12/27/2010 05/25/20 12 Dyslipidemia, goal LDL below 130 06/01/2010 03/28/2012 Asthma with severity to be determined 03/04/2010 11/01/2011 Overview: Per Asthma Taxonomy ICD-10 update of inactive term Asthma in remission 03/04/2010 01/09/2013 Overview: Per Provider Protocol. Obesity, morbid (more than 1 00 lbs over ideal weight or BMI > 40) ([facility]) 12/08/2009 07/02/2014 Overview: Per Obesity Taxonomy ICD-10 [...] encounter Miscellaneous Notes * Telephone Encounter - Lincoln Borden, [facility] - 12/04/2017 9:08 AM EDT Signed Prescriptions: Disp Refills Glucose Blood (ONETOUCH VERIO) STRP [address] St*3 Sig: Use up to four times a day as directed.DX:E11.9 Authorizing Provider: Nancy ROBERTS Ordering User: LINCOLN BORDEN * Telephone Encounter - Irma Martinez [facility] - 12/04/2017 8:18 AM EDT Formatting of this note may be different from the original. Pt calling and is requesting a 90 day supply of the following medication. I have pended a new Rx for approval Pending Prescriptions: Disp Refills Glucose Blood (ONETOUCH VERIO) STRP 300 St*3 Sig: Use up to four times a day as directed.DX:E11.9 Last Office Visit: 11/28/2017 Next Office Visit: 02/13/2018 Scheduled Provider(s): Nancy Roberts MD If no future appointments scheduled, and last appointment is greater than a year ago, please schedule patient for a follow-up appointment Last date the medication was ordered: 01/19/17 Patient Phone Numbers Labs: Lab Results Component [...] Irene Mujica CRNP [address] [place] [address] [phone] 01/23/2018 Office Visit Gastroenterology Gadiel Pathak MD [address] [facility] [place] [address] [phone] 02/13/2018 Office Visit Family Practice Nancy Roberts MD [address] [place], [place] [address] 02/26/2018 Office Visit Gastroenterology Lyssa Stout CRNP [address] [place] [address] [phone] 03/20/2018 Office Visit Dermatology Rachel Hill MD [address] [place] [address] [phone] 08/07/2018 Office Visit Sleep Disorders Lanette Fields CRNP [address] [place] [address] [phone] Nurse [place] Sleep Disorders [address] [place] [address] [phone] Health Maintenance Due Date Last Done Comments [...] Group Subscriber ID Type Phone Address [facility] [id number] [employer] [id number] [facility] [id number] as of this encounter
--- OUTSIDE RECORDS SUMMARY | 2023-05-10 23:33 | External Medical Summary | Summary of Care ---
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 Name Role Phone Nancy Matute MD Primary Care Provider [phone] Reason for Visit * Reason Comments HOSPITAL FOLLOW-UP HOSPITAL FOLLOW-UP Encounter Details Date Type Department Care Team Description 11/28/2017 Office Visit [address] [address] Nancy Matute MD [address] [place] [address] [phone] Acute cystitis with hematuria*;Vancomycin resistant Enterococcus;Moderate persistent asthma with exacerbation;Cerebral palsy, unspecified type ([facility]);Type 2 diabetes mellitus with hemoglobin A1c goal of less than 7.0% ([facility]);Intermittent asthma with reliever use up to twice per week without complication;Spinal stenosis of lumbar region without neurogenic claudication;HTN, goal below 140/90;NG (nonalcoholic steatohepatitis) Allergies Active Allergy Reactions Severity [...] Inhaler 1 06/29/2016 Active Vitamin D, Ergocalciferol, 72455 UNITS CapsuleIndications: Vitamin D deficiency 1capsule every [...] as directed.DX:E11 .9 100 Strip 11 01/19/2017 Active busPIRone (BUSPAR) [...] bedtime 30 Each 3 10/11/2017 Active nystatin 742012 UNIT/GM creamIndications:Ca ndidal vulvovaginitis Apply topically to affected area 2 times a day. To affacted area for two weeks. 15 g 2 10/12/2017 Active Blood Glucose Monitoring Suppl (Devunity VERIO) w/Device KITIndications:Type 2 diabetes mellitus with [...] 2 days 30 Tab 0 11/28/2017 Active fluticasone (FLONASE) 50 MCG/ACT nasal sprayIndications:Si nus headache Administer 2 Sprays into each nostril daily. 1 Inhaler 5 05/22/2015 11/29/19 18 Discontinued cyclobenzaprine (FLEXERIL) 10 MG Tablet Take 1 Tab by mouth at bedtime. 30 Tab 0 09/08/2017 11/29/19 18 Discontinued as of this encounter Active Problems Problem Noted Date Cirrhosis of liver (HCC) 11/20/2017 Bladder tumor 10/11/2017 Chronic indwelling Cline catheter 2017 Recurrent UTI 10/11/2017 Preoperative cardiovascular examination 10/11/2017 History of Clostridium difficile colitis 08/29/2017 Debility 07/19/2017 Body mass index (BMI) of 50.0 to 59.9 in adult ([facility]) 06/12/2017 Overview: Per Obesity protocol #1 Chronic [...] 140/90 03/27/2012 Chronic rhinitis 03/27/2012 Cerebral palsy ([facility]) 01/24/2012 Obstructive sleep apnea 01/18/2011 Overview: 08/18/11 [...] 40) ([facility]) 05/25/2012 01/17/2017 Overview: BMI= 55.27 9/14/12 Impacted [...] pain 01/24/2012 01/17/2017 Genetic Sleep Disorder Research Other*[id number] 05/13/2011 04/07/2016 Lumbosacral spondylosis 12/27/2010 05/25/20 12 Dyslipidemia, goal LDL below 130 06/01/2010 03/28/2012 Asthma with severity to be determined 03/04/2010 11/01/2011 Overview: Per Asthma Taxonomy ICD-10 update of inactive term Asthma in remission 03/04/2010 01/09/2013 Overview: Per Provider Protocol. Obesity, morbid (more than 1 00 lbs over ideal weight or BMI > 40) ([facility]) 12/08/2009 07/02/2014 Overview: Per Obesity Taxonomy ICD-10 [...] Vital Sign Reading Time Taken Blood Pressure 120/70 11/28/2017 2:03 PM EDT Pulse 76 11/28/2017 2:03 PM EDT Temperature 37.2 C (98.9 F) 11/28/2017 2 :03 PM EDT Respiratory Rate 18 11/28/2017 2:03 PM EDT Oxygen Saturation - - Inhaled Oxygen Concentration - - Weight 115.7 kg (255 lb) 11/28/2017 2:0 3 PM EDT Height 149.9 cm (4' 11") 11/28/2017 2:0 3 PM EDT Body Mass Index 51.5 11/28/2017 2:03 PM EDT in this encounter Instructions * Patient Instructions - Nancy Matute MD - 11/28/2017 2:24 PM EDT Taking an Active Role in Your Medicines Take the time to learn about your medicine. For instance, why are you taking it? What does it do? Work with your doctor or other health care providers to get the answers you need. Talk to your pharmacist about how to take each medicine, and ask for a fact sheet on each one. Ask Questions About Your Medicine What is the name of the medicine? Why do I need to take it? When should I take it? How should I take it: with water? with food? on an empty stomach? How much do I take? What do I do if I miss a dose? What side effects could it cause and which ones should I call the doctor about? Are there any foods or medicines I should avoid while taking this medicine? Keeping track of your medications? Name of medicine: Taken for: Dose: Time(s) to take it: Take an Active Role Fill all your prescriptions at the same pharmacy. This keeps your medicine history in one place. Talk to the pharmacist. Make sure you understand how to take each medicine. Ask for a fact sheet about each one. Tell your doctor and pharmacist about all the prescription and kbbq-xnd-cafsleq medicines you take.This includes vitamins and herbal remedies. Tell your doctor and pharmacist if you have any medical conditions or allergies to any medicine or food, or if you are or . Keep a list of all your medicines. Use the sample to the right as a guide for the type of information [place] [address]. All rights reserved. This information is not intended as a substitute for professional medical care. Always follow your healthcare professional's instructions. in this encounter Progress Notes * Nancy Matute MD - 11/28/2017 2:18 PM EDT Formatting of this note may be different from the original. SUBJECTIVE: Shaina Bustos is a 62 year old female. Chief Complaint Patient presents with HOSPITAL FOLLOW-UP HOSPITAL FOLLOW-UP Recent Admission: Patient was recently admitted to [facility] November 20 2017. The date of discharge was November 26, 2017. Discharge report received and reviewed. HPI: Patient was admitted to the hospital with recurrent urinary tract infection with hematuria with VRE. Was on expensive double antibiotics to complete the course. Was discharged on 5 days of prednisone. Has not taking that yet. Was told to take in SN for her cold type symptoms. Has had increased chest congestion and cough since discharge. Did not get the going fasting. Would be interestedin taking the longer prednisone taper. Would be interested in restarting her nebulizer medication. This usually works much better for her than her rescue inhaler. Global weakness is somewhat improved though she is still at a lower level function. Understands he is trang to be alive. Does not need refill of any medications today. Her medication list is reviewed in detail. Had to cancel her appointment in September with Dermatology. That was rescheduled for March. Patient reports her urology specialist has discontinued her indwelling catheter. We had discussed this previously and she understood having an indwelling catheter increases the risk of infection and . No other complaints or concerns. 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 Use daily to check blood sugars DX:E11.9 1 Kit 0 Blood Glucose Monitoring Suppl (Weizoom) w/Device KIT Use up to 4 times [...] a day. 1 Cap 0 Glucose Blood (Devunity ULTRA BLUE) STRP Use as directed 4 times a day as needed for Other (Usedaily to check blood sugars DX:E11.9). Use up to four times a day as directed 100 Strip 11 Glucose Blood (Devunity VERTamoco) STRP Use up to four times a day as directed.DX:E11.9 100 Strip 11 Hydrocodone-Acetaminophen (NORCO) 10-325 MG per tablet Take [...] NEBULIZER KORTNEY as directed 1 0 nystatin 436841 UNIT/GM cream Apply topically to affected area 2 times a day. To affacted area for two weeks. 15 g 2 omeprazole (PRILOSEC) 20 MG CPDR Take 1 [...] bedtime 30 Tab 5 Vitamin D, Ergocalciferol, 48886 UNITS Capsule 1capsule every other week 8 Cap 6 furosemide (LASIX) 20 MG Tablet One pill by mouth once a day, as needed for edema 30 Tab 5 nystatin (NYSTOP) powder Apply topically to affected area 3 times a day. Sprinkle over affected area. 1 Bottle 1 OCEAN NASAL SPRAY 0.65 % NA SOLN Two sprays in each nostril as needed for nasal dryness or congestion 1 Bottle 5 Current and discharge medications have been reconciled. Review of patient's allergies indicates: Allergen Reactions Pcn [Penicillins] Rash Review Of Systems: Skin: Stable Eyes: negative Ears/Nose/Throat: pt denies:, frequent URI's Respiratory: As above Cardiovascular: pt denies:, palpitations, tachycardia, irregular heart beat and chest pain Gastrointestinal: pt. denies:, abdominal pain, nausea, heartburn, diarrhea Genitourinary: pt denies:, dysuria, frequency and hesitancy Musculoskeletal: pt denies significant joint pain or stiffness Neurologic: pt denies:, numbness or tingling of hands and numbness or tingling of feet Psychiatric: Stable Hematologic/Lymphatic/Immunologic: pt denies:, fever and chills Endocrine: pt denies:, cold intolerance and heat intolerance OBJECTIVE: BP 120/70 | Pulse 76 | Temp (Src) 98.9 (Tympanic) | Resp 18 | Ht 4' 11" (1.499m) | Wt 255 lbs (115.667kg) | BMI 51.5 kg/m | BSA 2.19 m PHYSICAL EXAM: General appearance - large white female in motorized wheelchair, alert, no distress Skin - Skin color, texture, turgor normal. Chronic bilateral stasis dermatitis with chronic edema Head - Normocephalic., No masses, lesions, tenderness or abnormalities. Eyes - Conjunctivae and corneas clear. PERRL, EOM's intact. Fundi benign Ears - External ears normal. Canals clear. TM's normal Nose/Sinuses - Nares normal. Septum midline. Mucosa erythema. No drainage. Oropharynx - Lips, mucosa, and tongue normal. Oropharynx erythema Neck - neck supple, no adenopathy, thyroid symmetric, normal size Back - No CVA tenderness Lungs - increased bronchial noises and cough with deep breathing Heart - RRR. No murmurs, clicks or rubs Abdomen - abdomen soft, non-tender, bowel sounds normal, no masses or hepatosplenomegaly Extremities - chronic bilateral lower extremity edema with stasis dermatitis Neuro - longstanding cerebral palsy ASSESSMENT/PLAN: (N30.01) Acute cystitis with hematuria (primary encounter diagnosis) Plan: DISCH MED RECON CUR MED LIS Follow up with urology specialist as planned. Time of dermatology appointment is reviewed. Should see if she can get on the waiting list to get in earlier with cancellations. Has appointment scheduled to see me for follow-up in February. Will keep that appointment. Continue current medications. Will use Lantus 10 units a day. May need to increase that with her being on 10 day taper prednisone. Use of inhaler medication/nebulizer medication is discussed. Use of Mucinex is discussed. Rest and fluids is encouraged. Call with questions or problems. 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) Moderate persistent asthma with exacerbation Plan: PredniSONE (DELTASONE) 10 MG Tablet (G80.9) Cerebral palsy, unspecified type (HCC) (E11.9) Type 2 diabetes mellitus with hemoglobin A1c goal of less than 7.0% (HCC) (J45.20) Intermittent asthma with reliever use up to twice per week without complication (M48.061) Spinal stenosis of lumbar region without neurogenic claudication (I10) HTN, goal below 140/90 (K75.81) NG (nonalcoholic steatohepatitis) (M51.36) DDD (degenerative disc disease), lumbar (I89.0) Lymphedema (I87.2) Venous stasis dermatitis of both lower extremities (E03.9) Acquired hypothyroidism (F41.8) Depression with anxiety (R53.81) Debility (Z09) Hospital discharge follow-up Plan: DISCH MED RECON CUR MED LIS Continue present medication(s): Follow up as scheduled or as needed.. Nancy Matute MD in this encounter Nursing Notes * Kiesha Schmitt, DENTAL HYGIENIST - 11/28/2017 2:01 PM EDT Here for hospital follow up in this encounter Plan of Treatment Upcoming Encounters Date Type Specialty Care Team Description 12/08/2017 Office Visit Gynecology Obstetrics [facility] CR[facility] [address] [facility] [place] [address] [phone] 01/23/2018 Office Visit Gastroenterology Gadiel Pathak MD [address], [place] [id number] 02/13/2018 Office Visit Family Practice Nancy Matute MD [address] [place], [place] [address] 02/26/2018 Office Visit Gastroenterology Lyssa Stout CRNP [address] [facility] [place] [address] [phone] 03/20/2018 Office Visit Dermatology Rachel Hill MD [address] [place] [address] [phone] 08/07/2018 Office Visit Sleep Disorders [facility] [address] [facility] [place] [address] [phone] [place], Nurse Sleep Disorders [address] [place] [address] [phone] Health Maintenance Due Date Last Done Comments [...] encounter Visit Diagnoses Diagnosis Acute cystitis with hematuri a - Primary Acute cystitis Vancomycin resistant Enteroc occus Streptococcus infection in conditions classified elsewhere and of unspecified site, group D Moderate persistent asthma w ith exacerbation Unspecified asthma, with exacerbation Cerebral palsy, unspecified type (HCC) Type 2 diabetes mellitus wit h hemoglobin A1c goal of less than 7.0% (HCC) Intermittent asthma with rel iever use up to twice per week without complication Spinal stenosis of lumbar re gion without neurogenic claudication Spinal stenosis, lumbar region, without neurogenic claudication HTN, goal below 140/90 Unspecified essential hypertension NG (nonalcoholic steatohep atitis) Other chronic nonalcoholic liver disease DDD (degenerative disc disea se), lumbar Degeneration of lumbar or lumbosacral intervertebral disc Lymphedema Other lymphedema Venous stasis dermatitis of both lower extremities Acquired hypothyroidism Unspecified hypothyroidism Depression with anxiety Dysthymic disorder Debility Debility, unspecified Hospital discharge follow-up Other follow-up examination in this encounter Insurance Payer Benefit Plan / Group Subscriber ID Type Phone Address [facility] [id number] [employer] [id number] [facility] [id number] as of this encounter
--- OUTSIDE RECORDS SUMMARY | 2023-05-10 23:33 | External Medical Summary | Summary of Care ---
Author Name Unknown Organization [place] [address] Phone Care Team Providers Care Returner Name Role Phone Nancy Matute MD Primary Care Provider [phone] Reason for Visit * Reason Comments ORDER REQUEST Encounter Details Date Type Department Care Team Description 12/01/2017 Telephone Sleep Disorders, [facility] [address] [facility] [place] [address] [facility] [address] [facility] [place] [address] [phone] ORDER REQUEST Allergies Active Allergy Reactions Severity [...] Inhaler 1 06/29/2016 Active Vitamin D, Ergocalciferol, 31140 UNITS CapsuleIndications:Vi tamin D deficiency 1capsule every [...] than 7.0% ([facility]) 10 units at bed time 5 Pre-filled Pen Syringe Dosing Unit 3 10/11/2017 Active Insulin Pen Needle 31G X 6 MM MISCIndications:Type 2 diabetes mellitus with hemoglobin A1c goal of less than 7.0% ([facility]) Use with Lantus Solostar at bedtime 30 Each 3 10/11/2017 Active nystatin 875006 UNIT/GM creamIndications:Cand idal vulvovaginitis Apply topically to affected area 2 times a day. To affacted area for two weeks. 15 g 2 10/12/2017 Active Blood Glucose Monitoring Suppl ([employer] VERIO) w/Device KITIndications:Type 2 diabetes mellitus [...] 2 days 30 Tab 0 11/28/2017 Active as of this encounter Active Problems Problem Noted Date Cirrhosis of liver (HCC) 11/20/2017 Bladder tumor 10/11/2017 Chronic indwelling Cline catheter 2017 Recurrent UTI 10/11/2017 Preoperative cardiovascular examination 10/11/2017 History of Clostridium difficile colitis 08/29/2017 Debility 07/19/2017 Body mass index (BMI) of 50.0 to 59.9 in adult ([facility]) 06/12/2017 Overview: Per Obesity [...] ([facility]) 08/19/2016 03/28/20 17 Polyuria [...] pain 01/24/2012 01/17/2017 Genetic Sleep Disorder Research Other*[id number] 05/13/2011 04/07/2016 Lumbosacral spondylosis 12/27/2010 05/25/20 12 [...] Miscellaneous Notes * Telephone Encounter - Saloni Elias CMA - 12/01/2017 2:48 PM EDT Miley from [facility] states they have the order and paperwork that they need. Spoke with patient to make her aware. Verbalized understanding and will call [facility] on Monday * Telephone Encounter - Susan Scott OSA - 12/01/2017 2:31 PM EDT The patient would like an order for a C-Pap machine sent to [facility]. They are waitingfor the order. Please advise the patient when the order is sent at [phone]. in this encounter Plan of Treatment Upcoming Encounters Date Type Specialty Care Team Description 12/08/2017 Office Visit Gynecology Obstetrics Irene Mujica CRNP [address] [place] [address] [phone] 01/23/2018 Office Visit Gastroenterology Gadiel Pathak MD [address] [place], [place] [address] 02/13/2018 Office Visit Family Practice Nancy Matute MD [address] [place] [address] [phone] 02/26/2018 Office Visit Gastroenterology Lyssa Stout CRNP [address] [place] [address] [phone] 03/20/2018 Office Visit Dermatology Rachel Hill MD [address] [place] [address] [phone] 08/07/2018 Office Visit Sleep Disorders [facility] Fields [facility] [address] [facility] [address] [phone] , Nurse Sleep Disorders [address] [place] [address] [phone] Health Maintenance Due Date Last Done Comments [...] Subscriber ID Type Phone Address [facility] BLUE [facility] [id number] [employer] [id number] [facility] [id number] as of this encounter
--- OUTSIDE RECORDS SUMMARY | 2023-05-10 23:33 | External Medical Summary | Summary of Care ---
Author Name Unknown Organization [place] [address] Phone Care Team Providers Care Skip Pit Worker Name Role Phone Nancy Matute MD Primary Care Provider [phone] Reason for Visit * Reason Comments FORMS REQUEST Encounter Details Date Type Department Care Team Description 11/30/2017 Telephone [place] [id number] [place] [address] Nancy Matute MD [address] [place] [address] [phone] FORMS REQUEST Allergies Active Allergy Reactions Severity [...] Inhaler 1 06/29/2016 Active Vitamin D, Ergocalciferol, 76585 UNITS CapsuleIndications: Vitamin D deficiency 1capsule every [...] 1 Kit 0 01/17/2017 Active Glucose Blood (Emerging TravelTOUCH ULTRA BLUE) STRPIndications:Typ e 2 diabetes mellitus [...] bedtime 30 Each 3 10/11/2017 Active nystatin 514475 UNIT/GM creamIndications:Ca ndidal vulvovaginitis Apply topically to affected area 2 times a day. To affacted area for two weeks. 15 g 2 10/12/2017 Active Blood Glucose Monitoring Suppl (ONETOUCH VERIO) w/Device KITIndications:Type 2 diabetes mellitus with hemoglobin A1c goal of less than 7.0% ([facility]) Use up to 4 times [...] (BMI) of 50.0 to 59.9 in adult ([facility]) 06/12/2017 Overview: Per Obesity protocol [...] 03/27/2012 Cerebral palsy ([facility]) 01/24/2012 Obstructive sleep apnea 01/18/2011 [...] Atypical chest pain 08/19/2016 01/17/2017 Hepatic cirrhosis ([facility]) 08/19/2016 03/28/20 [...] pain 01/24/2012 01/17/2017 Genetic Sleep Disorder Research Other*[id number] 05/13/2011 04/07/2016 Lumbosacral spondylosis 12/27/2010 05/25/20 12 [...] Telephone Encounter - Nancy Matute MD - 11/30/2017 2:38 PM EDT Form signed. Nancy Matute MD * Telephone Encounter - Ludy Jara LPN - 11/30/2017 9:51 AM EDT On your desk * Telephone Encounter - Karyn Ta OSA - 11/30/2017 9:34 AM EDT [facility] form to be signed by PCP. Placed in Giovani's bin Thanks in this encounter Plan of Treatment Upcoming Encounters Date Type Specialty Care Team Description 12/08/2017 Office Visit Gynecology Obstetrics Irene Mjuica CRNP [address] [place] [address] [phone] 01/23/2018 Office Visit Gastroenterology Gadiel Pathak MD [address] [place] [address] [phone] 02/13/2018 Office Visit Family Practice Nancy Matute MD [address] [place] [address] [phone] 02/26/2018 Office Visit Gastroenterology Lyssa Stout CRNP [address] [facility] [place] [address] [phone] 03/20/2018 Office Visit Dermatology Rachel Hill MD [address] [place] [address] [phone] 08/07/2018 Office Visit [facility] Disorders [facility] [address] [facility] [address] [phone] Kent[place], Nurse Sleep Disorders [address] [facility] [address] [phone] Health Maintenance Due Date Last Done Comments [...] Phone Address [facility] [id number] [employer] [id number] BLUE [facility] [id number] as of this encounter
--- OUTSIDE RECORDS SUMMARY | 2023-05-10 23:33 | External Medical Summary | Summary of Care ---
Author Name Unknown Organization [place] [address] Phone Care Team Providers Care Head Stock Operator Name Role Phone Nancy Matute MD Primary Care Provider [phone] Reason for Visit * Reason Comments Weight Management Medical Management Encounter Details Date Type Department Care Team Description 11/28/2017 Office Visit Nutrition & Weight Management, [facility] [address] [place] [address] Gadiel Pathak MD [address] [place] [address] Morbid obesity due to excess calories (HCC)*;Type 2 diabetes mellitus with hemoglobin A1c goal of less than 7.0% (HCC);HTN, goal below 140/90;THAD (obstructive sleep apnea);NG (nonalcoholic steatohepatitis) Allergies Active Allergy Reactions Severity [...] or congestion 1 Bottle 5 05/29/2014 Active fluticasone (FLONASE) 50 MCG/ACT nasal sprayIndications:Sinu s headache Administer 2 Sprays into each nostril daily. 1 Inhaler 5 05/22/2015 Active Azelastine HCl (ASTELIN) 0.1 % nasal [...] Inhaler 1 06/29/2016 Active Vitamin D, Ergocalciferol, 17463 UNITS CapsuleIndications:Vi tamin D deficiency 1capsule every [...] 1 Kit 0 01/17/2017 Active Glucose Blood ([employer] Fish HatcheryTOUCH ULTRA BLUE) STRPIndications:Type 2 diabetes mellitus with hemoglobin A1c goal of less than 7.0% (HCC) Use as directed 4 times a day as needed for Other (Use daily to check blood sugars DX:E11.9). Use up to four times a day as directed 100 Strip 11 01/17/2017 Active [employer] HatcheryTOUCH ULTRASOFT LANCETS MISCIndications:Type 2 diabetes mellitus with [...] at bedtime. 90 Tab 1 09/08/2017 Active cyclobenzaprine (FLEXERIL) 10 MG Tablet Take 1 Tab by mouth at bedtime. 30 Tab 0 09/08/2017 Active albuterol-ipratropium (DUONEB) 2.5-0.5 MG/3ML nebulizer [...] bedtime 30 Each 3 10/11/2017 Active nystatin 039086 UNIT/GM creamIndications:Cand idal vulvovaginitis Apply topically to affected area 2 times a day. To affacted area for two weeks. 15 g 2 10/12/2017 Active Blood Glucose Monitoring Suppl ([employer]per[employer]out VERIO) w/Device KITIndications:Type 2 diabetes mellitus with [...] (HCC) 11/20/2017 Bladder tumor 10/11/2017 Chronic indwelling Nova catheter 2017 Recurrent UTI 10/11/2017 Preoperative cardiovascular [...] Chronic rhinitis 03/27/2012 Cerebral palsy ([facility]) 01/24/2012 Obstructive sleep apnea 01/18/2011 Overview: 08/18/11 [...] pain 08/19/2016 01/17/2017 Hepatic cirrhosis ([facility]) 08/19/2016 03/28/20 17 Polyuria 08/09/2016 01/17/2017 Urinary frequency 08/09/2016 01/17/2017 Generalized OA 06/14/2016 03/28/2017 Body mass index (BMI) of 45.0-49.9 in adult ([facility] ) 12/09/2015 01/17/2017 Overview: bmi= 48.04 [...] pain 01/24/2012 01/17/2017 Genetic Sleep Disorder Research Other*[id number] 05/13/2011 04/07/2016 Lumbosacral spondylosis 12/27/2010 05/25/20 12 [...] Vital Sign Reading Time Taken Blood Pressure 118/74 11/28/2017 11:16 AM EDT Pulse 76 11/28/2017 11:16 AM EDT Temperature - - Respiratory Rate - - Oxygen Saturation - - Inhaled Oxygen Concentration - - Weight - - Height - - Body Mass Index - - in this encounter Progress Notes * Gadiel Pathak MD - 11/28/2017 11:09 AM EDT Formatting of this note [...] was 276 pounds. Wt Readings from Last 5 Encounters: 11/20/17 118.4 kg (261 lb) 10/11/17 120.2 kg (265 lb) 10/10/17 120.5 kg (265 lb 11.2 oz) 10/10/17 120.5 kg (265 lb 11.2 oz) 07/19/17 117.5 kg (259 lb) Patient is receiving ongoing education regarding dietary and physical modifications for weight loss. Patient is interested in the following treatment options for obesity: medical management. The patient was last seen in this clinic 09/2017. Since that time the patient's weight has decreased 4 pounds. The patient's total weight change is -15 pounds. Has been in and out of the hospital for the last few months and was just discharged from [facility] around a week back. Review of Systems: The patient denies any chest pain, palpitations. Since her last visit there have been no problems with Anxiety / nervousness, Binge Eating, Depression, Diarrhea and Hair loss. DM: States she does not check her blood sugars often, but she and her say "they are okay" when they do check them. Was 208 this AM. Depression/Anxiety: Well controlled on current medications. Dyslipidemia: Stable on current medication. Hypothyroidism: States dose was recently changed by PCP. Edema: Stable per patient. GERD: Stable with [...] 30 g 1 Blood Glucose Monitoring Suppl (Rapport) W/DEVICE KIT Use as directed. Use daily to check blood sugars DX:E11.9 1 Kit 0 Blood Glucose Monitoring Suppl (Rapport) w/Device KIT Use up to 4 times a day E11.9 1 Kit 0 busPIRone (BUSPAR) 10 MG Tablet 0 CENTRUM SILVER PO TABS 1 tab daily 1 Tab 0 cyclobenzaprine (FLEXERIL) 10 MG Tablet Take 1 Tab by mouth at bedtime. 30 Tab 0 escitalopram (LEXAPRO) 10 MG Tablet Take 15 Tabs by mouth daily. 0 fexofenadine (BERNARDA) 180 MG Tablet One pill by mouth once a day as needed for allergies 30 Tab 11 fluticasone (FLONASE) 50 MCG/ACT nasal spray Administer 2 Sprays into each nostril daily. 1 Inhaler5 fluticasone (FLONASE) 50 MCG/ACT nasal spray Administer [...] timesa day. 1 Cap 0 Glucose Blood (ONETOUCH ULTRA BLUE) STRP Use as directed 4 [...] SOPN 10 units at bed time 5 Pre- filled [...] over affected area. 1 Bottle 1 nystatin 218129 UNIT/GM cream Apply topically to affected area [...] bedtime 30 Tab 5 Vitamin D, Ergocalciferol, 67100 UNITS Capsule 1capsule every other week 8 Cap 6 Water intake: sometimes, drinks about 2-3 large bottles of water per day Prescribed diet: 6849-8965 Low Fat CHO Modified Diet Current diet: --> Breakfast-- eggs -3, 2 slices of toast --> Snack--club crackers, not usually --> Lunch-- lunch meat sandwich; tomato and almeida sandwich, tomato soup --> Snack--none --> Dinner--chili; baked potato and veggie; baked chicken often with veggies --> Snack-- none or crackers or grapes, sugar free ice cream --> Drinks-- flavored water, diet amaury jackie , milk 2% Food logs: No Type of exercise: limited due to immobility from CP Weight loss Pharmacotherapy: no BP 118/74 | Pulse 76 | Wt (0.000kg) PHYSICAL EXAMINATION: General: Patient is in no [...] appreciated. No rebound or guarding. Extremities are 1+ in LEs. Skin is without obvious rash. Psych is normal mood and affect Neuro Wheelchair bound Has nova catheter in LDL (DIRECT MEASURE) [facility] Dt/Tm Resulted Value Low High Status LDL (DIRECT MEASURE) (mg/dL) 02/01/17 11:19A 02/01/17 101 0 129 F HDL(mg/dL) [facility] Dt/Tm Resulted Value Status 05/05/16 10:19A 05/05/16 38* FINAL CHOLESTEROL(mg/dL) [facility] Dt/Tm Resulted Value Status 05/05/16 10:19A 05/05/16 122 FINAL GLUCOSE(mg/dL) [facility] Dt/Tm Resulted Value Status 05/30/17 3:59P 05/30/17 131* FINAL HEMOGLOBIN, A1C(%) [facility] Dt/Tm Resulted Value Status 03/28/17 3:31P 03/28/17 6.6* FINAL LIPID PANEL [facility] Dt/Tm Resulted Value Status HOURS FASTING (hours) 05/05/16 10:19A 05/05/16 12 F TRIGLYCERIDES (mg/dL) 05/05/16 10:19A 05/05/16 136 F CHOLESTEROL (mg/dL) 05/05/16 10:19A 05/05/16 122 F HDL (mg/dL) 05/05/16 10:19A 05/05/16 38* F CHOL/HDL RATIO ( ) 05/05/16 10:19A 8/25/16 3.2 F LDL (CALCULATED) (mg/dL) 05/05/16 10:19A 05/05/16 57 F MICROALBUMIN RATIO(mg/g creat) [facility] Dt/Tm Resulted Value Status 02/03/17 9:58A 02/03/17 <15 FINAL CREATININE(mg/dL) [facility] Dt/Tm Resulted Value Status 05/30/17 3:59P 05/30/17 0.7 FINAL ALT(U/L) [facility] Dt/Tm Resulted Value Status 03/28/17 3:31P 03/28/17 26 FINAL Assessment: Morbid Obesity: The above meal plan was reviewed again in detail with Shaina Bustos. She will continue to increase her physical activity as prescribed. Continue to avoid all fruit juices and regular sodas. Increase water consumption to 64 ounces per day. Encourage to keep food logs and get weighed on a weekly basis. Goals for next month: 1. Start food logs. 2. Increase water intake. 3. Cut down on carbs 4. Avoid sugary snacks She will consider surgical options DIABETES: Continue current medications. DYSLIPIDEMIA: Stable on the above prescribed meal plan and medication. Liver function stable. GERD: The patient believes her reflux is [...] EDEMA: Stable. NG: Continue following with GI. HYPOTHYROIDISM: TSH very low. Possible repeated at [facility] when admitted. Will see PCP tomorrow THAD: in CPAP The patient will return to the [facility] in 8 weeks. She was instructed to call in the meantime with any questions or concerns prior to her next clinic visit. Gadiel Pathak MD in this encounter Nursing Notes * Nilo Aliriokerri Cruz LPN - 11/28/2017 11:16 AM EDT Formatting of this note may be different from the original. Pt verified identity by last name and date. Chief Complaint Patient presents with Weight Management Medical Management in this encounter Plan of Treatment Upcoming Encounters Date Type Specialty Care Team Description 11/28/2017 Office Visit Gastroenterology Gadiel Pathak MD [address] [place] [address] Morbid obesity due to excess calories (HCC)*;Type 2 diabetes mellitus with hemoglobin A1c goal of less than 7.0% (HCC);HTN, goal below 140/90;THAD (obstructive sleep apnea);NG (nonalcoholic steatohepatitis) 11/28/2017 Office Visit [facility] Nancy Matute MD [address] [place], [place] [address] 12/08/2017 Office Visit Gynecology Obstetrics Irene Mujica CRNP [address] [place] [address] [phone] 02/13/2018 Office Visit [facility] Nancy Matute MD [address] [place], [place] [address] 02/26/2018 Office Visit Gastroenterology Lyssa Stout CRNP [address] [place] [address] [phone] 03/20/2018 Office Visit Dermatology Rachel Hill MD [address] [place] [address] [phone] 08/07/2018 Office Visit Sleep Disorders Lanette Fields CRNP [address] [place] [address] [phone] Gw, Nurse Sleep Disorders [address] [place] [address] [phone] Health Maintenance Due Date Last Done Comments [...] fileas of this encounter Visit Diagnoses Diagnosis Morbid obesity due to excess calories (HCC) - Primary Type 2 diabetes mellitus wit h hemoglobin A1c goal of less than 7.0% (HCC) HTN, goal below 140/90 Unspecified essential hypertension THAD (obstructive sleep apnea ) Obstructive sleep apnea (adult) (pediatric) NG (nonalcoholic steatohep atitis) Other chronic nonalcoholic liver disease in this encounter Insurance Payer Benefit Plan / Group Subscriber ID Type Phone Address [facility] [id number] [employer] [id number] [facility] [id number] as of this encounter
--- OUTSIDE RECORDS SUMMARY | 2023-05-10 23:33 | External Medical Summary | Summary of Care ---
Author Name Unknown Organization [place] [address] Phone Care Team Providers Care Invoice Clerk Name Role Phone Nancy Matute MD Primary Care Provider Encounter Details Date Type Department Care Team Description 11/29/2017 Scan Encounter Unspecified Department <No scans attached> [...] Inhaler 1 06/29/2016 Active Vitamin D, Ergocalciferol, 27667 UNITS CapsuleIndications:Vi tamin D deficiency 1capsule every [...] 1 Kit 0 01/17/2017 Active Glucose Blood (GridMarketsTOUCH ULTRA BLUE) STRPIndications:Type 2 diabetes mellitus with [...] Dosing Unit 11 01/17/2017 Active Glucose Blood (GridMarketsTOUCH VERIO) STRP Use up to four times [...] less than 7.0% ([facility]) 10 units at bed time 5 Pre-filled Pen Syringe Dosing Unit 3 10/11/2017 Active Insulin Pen Needle 31G X 6 MM MISCIndications:Type 2 diabetes mellitus with hemoglobin A1c goal of less than 7.0% (HCC) Use with Lantus Solostar at bedtime 30 Each 3 10/11/2017 Active nystatin 838435 UNIT/GM creamIndications:Cand idal vulvovaginitis Apply topically to affected area 2 times a day. To affacted area for two weeks. 15 g 2 10/12/2017 Active Blood Glucose Monitoring Suppl (Glyde VERIO) w/Device KITIndications:Type 2 diabetes mellitus with hemoglobin A1c goal of less than 7.0% ([facility]) Use up to 4 times a day [...] Problems Problem Noted Date Cirrhosis of liver ([facility]) 11/20/2017 Bladder tumor 10/11/2017 Chronic indwelling Cline catheter 2017 Recurrent UTI 10/11/2017 Preoperative cardiovascular examination 10/11/2017 History of Clostridium difficile colitis 08/29/2017 Debility 07/19/2017 Body mass index (BMI) of 50.0 to 59.9 in adult ([facility]) 06/12/2017 Overview: Per Obesity protocol #1 Chronic pain syndrome 01/17/2017 MEDICATION USE AGREEMENT 01/17/2017 Overview: 01/17/17 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 01/17/2017 Acquired hypothyroidism 12/12/2016 Depression with anxiety 08/19/2016 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 1 10/09/2015 Restrictive lung disease 12/10/2014 Allergic rhinitis 05/29/2014 Type 2 diabetes mellitus with hemoglobin A1c goal of less than 7.0% ([facility]) 09/26/2013 Overview: ICD-10 update of inactive term [...] 45.0-49.9 in adult ([facility] ) 12/09/2015 01/17/2017 Overview: bmi= 48.04 12/09/15 Need for shingles vaccine 12/09/20152015 Bilateral shoulder pain 08/25/2015 06/07/20 16 Bilateral shoulder pain 07/16/2015 06/07/20 16 Cerebral palsy (HCC) 04/23/2015 03/28/2017 Candidal vulvovaginitis 02/12/2015 06/07/20 16 Obesity, morbid (more than 1 00 lbs over ideal weight or BMI > 40) ([facility]) 02/09/2015 03/28/2017 THAD (obstructive sleep apnea) 02/09/2015 [...] BMI > 40) ([facility]) 10/28/2013 01/17/2017 Overview: bmi= 53.93 10/28/13 Sleep [...] BMI > 40) ([facility]) 05/25/2012 01/17/2017 Overview: BMI= 55.27 05/25/12 Impacted [...] pain 01/24/2012 01/17/2017 Genetic Sleep Disorder Research Other*[id number] 05/13/2011 04/07/2016 Lumbosacral spondylosis 12/27/2010 05/25/20 12 [...] Team Description 12/08/2017 Office Visit Gynecology Obstetrics [place], ZAK White [address] [facility] [place] [address] [phone] 01/23/2018 Office Visit Gastroenterology Gadiel Pathak MD [address] [place] [address] 02/13/2018 Office Visit Family Practice Nancy Matute MD [address] [place] [address] [phone] 02/26/2018 Office Visit Gastroenterology Lyssa Stout CRNP [address] [place] [address] [phone] 03/20/2018 Office Visit Dermatology Rachel Hill MD [address] [place] [address] [phone] 08/07/2018 Office Visit Sleep Disorders Lanette Fields CRNP [address] [facility] [place] [address] [phone] [place] Nurse Sleep Disorders [address] [facility] [place] [address] [phone] Health Maintenance Due Date Last Done Comments [...] / Group Subscriber ID Type Phone Address [facility] [id number] [employer] [facility] [id number] [facility] [id number] as of this encounter
--- OUTSIDE RECORDS SUMMARY | 2023-05-10 23:33 | External Medical Summary | Summary of Care ---
Author Name Unknown Organization [place] [address] Phone Care Team Providers Care Tire Sorter Name Role Phone Nancy Matute MD Primary Care Provider [phone] Reason for Visit * Reason Comments FORMS REQUEST [facility] Encounter Details Date Type Department Care Team Description 12/04/2017 Telephone [place] [address] [place] [address] Nancy Matute MD [address] [place] [address] [phone] FORMS REQUEST ([facility]) Allergies Active Allergy Reactions Severity Noted Date [...] Inhaler 1 06/29/2016 Active Vitamin D, Ergocalciferol, 34125 UNITS CapsuleIndications: Vitamin D deficiency 1capsule every [...] bedtime 30 Each 3 10/11/2017 Active nystatin 353457 UNIT/GM creamIndications:Ca ndidal vulvovaginitis Apply topically to [...] pain 01/24/2012 01/17/2017 Genetic Sleep Disorder Research Other*[id number] 05/13/2011 04/07/2016 Lumbosacral spondylosis 12/27/2010 05/25/20 12 [...] 12/04/2017 9:58 AM EDT Physicians Orders In Matute leonidas in this encounter Plan of Treatment Upcoming Encounters Date Type Specialty Care Team Description 12/08/2017 Office Visit Gynecology Obstetrics Irene Mujica CRNP [address] [place] [address] [phone] 01/23/2018 Office Visit Gastroenterology Gadiel Pathak MD [address] [place] [address] 02/13/2018 Office Visit Family Practice Nancy Matute MD [address] [place] [address] [phone] 02/26/2018 Office Visit Gastroenterology Lyssa Stout CRNP [address] [place] [address] [phone] 03/20/2018 Office Visit Dermatology Rachel Hill MD [address] [place] [address] [phone] 08/07/2018 Office Visit Sleep Disorders Lanette Fields CRNP [address] [place] [address] [phone] , Nurse Sleep Disorders [address] [place] [address] [phone] Health Maintenance Due Date Last Done Comments [...] Group Subscriber ID Type Phone Address [facility] BLUE [facility] [id number] [employer] [id number] [facility]UE [facility] [id number] as of this encounter
--- OUTSIDE RECORDS SUMMARY | 2023-05-10 23:33 | External Medical Summary | Summary of Care ---
Author Name Unknown Organization [place] [address] Phone Care Team Providers Care Artillery Specialist Name Role Phone Nancy Matute MD Primary Care Provider [phone] Reason for Visit * Reason Comments FORMS REQUEST Encounter Details Date Type Department Care Team Description 11/30/2017 Telephone [place] [id number] [place] [address] Nancy Matute MD [address] [place] [address] [phone] FORMS REQUEST Allergies Active Allergy Reactions Severity [...] Inhaler 1 06/29/2016 Active Vitamin D, Ergocalciferol, 77966 UNITS CapsuleIndications:Vi tamin D deficiency 1capsule every [...] (DUONEB) 2.5-0.5 MG/3ML nebulizer solutionIndications:[facility] exacerbation Use 1 vial in nebulizer [...] less than 7.0% ([facility]) 10 units at bed time 5 Pre-filled Pen Syringe Dosing Unit 3 10/11/2017 Active Insulin Pen Needle 31G X 6 MM MISCIndications:Type 2 diabetes mellitus with hemoglobin A1c goal of less than 7.0% ([facility]) Use with Lantus Solostar at bedtime 30 Each 3 10/11/2017 Active nystatin 976891 UNIT/GM creamIndications:Cand idal vulvovaginitis Apply topically to affected area 2 times a day. To affacted area for two weeks. 15 g 2 10/12/2017 Active Blood Glucose Monitoring Suppl ([employer]) w/Device KITIndications:Type 2 diabetes mellitus with hemoglobin A1c goal of less than 7.0% ([facility]) Use up to 4 times a [...] Problems Problem Noted Date Cirrhosis of liver ([facility]) 11/20/2017 Bladder tumor 10/11/2017 Chronic indwelling Cline catheter 2017 Recurrent UTI 10/11/2017 Preoperative cardiovascular examination 10/11/2017 History of Clostridium difficile colitis 08/29/2017 Debility 07/19/2017 Body mass index (BMI) of 50.0 to 59.9 in adult ([facility]) 06/12/2017 Overview: Per Obesity protocol #1 Chronic pain syndrome 01/17/2017 MEDICATION USE AGREEMENT 01/17/2017 Overview: 01/17/17 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 01/17/2017 Acquired hypothyroidism 12/12/2016 Depression with anxiety 08/19/2016 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 1 10/09/2015 Restrictive lung disease 12/10/2014 Allergic rhinitis 05/29/2014 Type 2 diabetes mellitus with hemoglobin A1c goal of less than 7.0% ([facility]) 09/26/2013 Overview: ICD-10 update of inactive term Vitamin D deficiency 09/26/2013 Lymphedema 03/11/2013 Intermittent asthma with reliever use up to twice per week 01/09/2013 Stasis dermatitis 05/07/2012 NG (nonalcoholic steatohepatitis) 04/12 Diverticulosis of colon 05/02/2012 HTN, goal below 140/90 03/27/2012 Chronic rhinitis 03/27/2012 Cerebral palsy ([facility]) 01/24/2012 Obstructive sleep apnea 01/18/2011 Overview: [...] pain 08/19/2016 01/17/2017 Hepatic cirrhosis ([facility]) 08/19/2016 03/28/20 17 Polyuria 08/09/2016 01/17/2017 Urinary frequency 08/09/2016 01/17/2017 Generalized OA 06/14/2016 03/28/2017 Body mass index (BMI) of 45.0-49.9 in adult ([facility] ) 12/09/2015 01/17/2017 Overview: bmi= 48.04 12/09/15 Need for shingles vaccine 12/09/20152015 Bilateral shoulder pain 08/25/2015 06/07/20 16 Bilateral shoulder pain 07/16/2015 06/07/20 16 Cerebral palsy ([facility]) 04/23/2015 03/28/2017 Candidal vulvovaginitis 02/12/2015 06/07/20 16 Obesity, morbid (more than 1 00 lbs over ideal weight or BMI > 40) ([facility]) 02/09/2015 03/28/2017 THAD (obstructive sleep apnea) [...] weight or BMI > 40) ([facility]) 10/28/2013 01/17/2017 Overview: bmi= 53.93 10/28/13 [...] weight or BMI > 40) ([facility]) 05/25/2012 01/17/2017 Overview: BMI= 55.27 05/25/12 [...] pain 01/24/2012 01/17/2017 Genetic Sleep Disorder Research Other*[id number] 05/13/2011 04/07/2016 Lumbosacral spondylosis 12/27/2010 05/25/20 12 Dyslipidemia, goal LDL below 130 06/01/2010 03/28/2012 Asthma with severity to be determined 03/04/2010 11/01/2011 Overview: Per Asthma Taxonomy ICD-10 update of inactive term Asthma in remission 03/04/2010 01/09/2013 Overview: Per Provider Protocol. Obesity, morbid (more than 1 00 lbs over ideal weight or BMI > 40) ([facility]) 12/08/2009 07/02/2014 Overview: Per Obesity Taxonomy [...] Matute MD * Telephone Encounter - Ludy JaraDEVAN - 11/30/2017 9:51 AM EDT On your desk * Telephone Encounter - Karyn Ta OSA - 11/30/2017 9:34 AM EDT [facility] form to be signed by PCP. Placed in Giovani's bin Thanks in this encounter Plan of Treatment Upcoming Encounters Date Type Specialty Care Team Description 12/08/2017 Office Visit Gynecology Obstetrics Irene Mujica CRNP [address] [place] [address] [phone] 01/23/2018 Office Visit Gastroenterology Gadiel Pathak MD [address] [place] [address] [phone] 02/13/2018 Office Visit Family Practice Nancy Matute MD [address] [place] [address] [phone] 02/26/2018 Office Visit Gastroenterology Lyssa Stout CRNP [address] [place] [address] [phone] 03/20/2018 Office Visit Dermatology Rachel Hill MD [address] [place] [address] [phone] 08/07/2018 Office Visit Sleep Disorders Lanette Fields CRNP [address] [place] [address] [phone] Nurse [place] Sleep Disorders [address] [place] [address] [phone] Health Maintenance Due Date Last Done Comments [...] / Group Subscriber ID Type Phone Address [facility] BLUE [facility] [id number] [employer] [id number] [facility] [id number] as of this encounter
--- OUTSIDE RECORDS SUMMARY | 2023-05-10 23:35 | External Medical Summary | Summary of Care ---
Author Name Unknown Organization [place] [address] Phone Care Team Providers Care Production Assembly Supervisor Name Role Phone Nancy Matute MD Primary Care Provider [phone] Reason for Visit * Reason Comments RECHECK on EGD recall list Encounter Details Date Type Department Care Team Description 11/20/2017 Office Visit Gastroenterology, [facility] [address] [facility] [place] [address] Lyssa Stout CRNP [address] [facility] [place] [address] [phone] NG (nonalcoholic steatohepatitis)*;Cirr hosis of liver without ascites, unspecified hepatic cirrhosis [...] Inhaler 1 06/29/2016 Active Vitamin D, Ergocalciferol, 45287 UNITS CapsuleIndications:Vi tamin D deficiency 1capsule every [...] 7.0% ([facility]) Take 1 Tab by mouth 2 [...] 7.0% ([facility]) 10 units at bed time 5 Pre-filled Pen Syringe Dosing Unit 3 10/11/2017 Active Insulin Pen Needle 31G X 6 MM MISCIndications:Type 2 diabetes mellitus with hemoglobin A1c goal of less than 7.0% ([facility]) Use with Lantus Solostar at bedtime 30 Each 3 10/11/2017 Active nystatin 834663 UNIT/GM creamIndications:Cand idal vulvovaginitis Apply topically to affected area 2 times a day. To affacted area for two weeks. 15 g 2 10/12/2017 Active Blood Glucose Monitoring Suppl ([employer] VERIO) w/Device KITIndications:Type 2 diabetes mellitus with hemoglobin A1c goal of less than 7.0% ([facility]) Use up to 4 times a [...] (BMI) of 50.0 to 59.9 in adult ([facility]) 06/12/2017 Overview: Per Obesity protocol #1 [...] ([facility]) 09/26/2013 Overview: ICD-10 update of inactive term Vitamin D deficiency 09/26/2013 Lymphedema 03/11/2013 Intermittent asthma with reliever use up to twice per week 01/09/2013 Stasis dermatitis 05/07/2012 NG (nonalcoholic steatohepatitis) 04/12 Diverticulosis of colon 05/02/2012 HTN, goal below 140/90 03/27/2012 Chronic rhinitis 03/27/2012 Cerebral palsy ([facility]) 01/24/2012 Obstructive sleep apnea 01/18/2011 Overview: [...] (BMI) of 45.0-49.9 in adult ([facility] ) 12/09/2015 01/17/2017 Overview: bmi= 48.04 12/09/15 Need for shingles vaccine 12/09/20152015 Bilateral shoulder pain 08/25/2015 06/07/20 16 Bilateral shoulder pain 07/16/2015 06/07/20 16 Cerebral palsy (HCC) 04/23/2015 03/28/2017 Candidal vulvovaginitis 02/12/2015 06/07/20 16 Obesity, morbid (more than 1 00 lbs over ideal weight or BMI > 40) ([facility]) 02/09/2015 03/28/2017 THAD (obstructive sleep apnea) [...] 40) ([facility]) 10/28/2013 01/17/2017 Overview: bmi= 53.93 10/28/13 [...] 40) ([facility]) 05/25/2012 01/17/2017 Overview: BMI= 55.27 05/25/12 [...] pain 01/24/2012 01/17/2017 Genetic Sleep Disorder Research Other*[id number] 05/13/2011 04/07/2016 Lumbosacral spondylosis 12/27/2010 05/25/20 12 Dyslipidemia, goal LDL below 130 06/01/2010 03/28/2012 Asthma with severity to be determined 03/04/2010 11/01/2011 Overview: Per Asthma Taxonomy ICD-10 update of inactive term Asthma in remission 03/04/2010 01/09/2013 Overview: Per Provider Protocol. Obesity, morbid (more than 1 00 lbs over ideal weight or BMI > 40) ([facility]) 12/08/2009 07/02/2014 Overview: Per Obesity Taxonomy [...] Vital Sign Reading Time Taken Blood Pressure 110/58 11/20/2017 3:30 PM EDT Pulse 64 11/20/2017 3:30 PM EDT Temperature 36.8 C (98.2 F) 11/20/2017 3 :30 PM EDT Respiratory Rate - - Oxygen Saturation - - Inhaled Oxygen Concentration - - Weight 118.4 kg (261 lb) 11/20/2017 3:3 0 PM EDT Height - - Body Mass Index 52.72 11/20/2017 3:30 PM EDT in this encounter Progress Notes * Lyssa Stout CRNP - 11/20/2017 3:19 PM EDT Formatting of this note may be different from the original. DATE OF SERVICE: 11/20/17 REFERRING PHYSICIAN: Self CC: F/U cirrhosis HPI: [...] for f/u cirrhosis. 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 But she is going to ED after this visit because of persistent weakness. Denies any CP, SOB, abd pain, n/v. Bowels move once daily, formed stools. Denies any rectal bleeding. Denies any jaundice. +leg edema, chronic. Past Medical History: Diagnosis Date Chronic pain [...] DIAGNOSTIC (RECTUM) 10/04/2016 normal bx, repeat 10 yrs/[facility] DENTAL SURGERY PROCEDURE NEC wisdom teeth x 4 DILATION AND CURETTAGE (D&C) EGD, FLEXIBLE, DIAGNOSTIC 10/04/2016 gastritis/[facility] PELVIS/HIP JOINT SURGERY NEC teenager aid in walking REPAIR/GRAFT ACHILLES TENDON age 40 aid in walking Social History Substance Use Topics Smoking status: Never Smoker Smokeless tobacco: Never Used Alcohol use Yes Comment: rare Review of patient's allergies indicates: [...] 30 g 1 Blood Glucose Monitoring Suppl ([employer]) W/DEVICE KIT Use as directed. Use daily to check blood sugars DX:E11.9 1 Kit 0 Blood Glucose Monitoring Suppl ([employer]) w/Device KIT Use up to 4 times [...] over affected area. 1 Bottle 1 nystatin 712263 UNIT/GM cream Apply topically to affected area [...] bedtime 30 Tab 5 Vitamin D, Ergocalciferol, 61449 UNITS Capsule 1capsule every other week 8 Cap 6 REVIEW OF SYSTEMS: See HPI above; All other findings negative. Filed Vitals: 11/20/17 1530 BP: 110/58 Pulse: 64 Temp: 36.8 C (98.2 F) Weight: 118.4 kg (261 lb) GENERAL: Well developed and well nourished, appears fatigued SKIN: No rashes, ulcers, jaundice or spider [...] old female w NALFD Cirrhosis. MELD 6. Doing ok from cirrhosis standpoint but having current issues of hematuria (s/p bladder bx for lesion and catherization, VRE UTI), ? Uterine bleeding, and c/o persistent weakness, dizziness. She will be going back to [facility] ED after visit today. - MELD labs updated from recent [facility] ED visit. - Last EGD: 2016 - non bleeding grade I varices, gastritis. Due for repeat this year, but will schedule once her above issues have resolved - Last Colonoscopy: 2016 - int hemorrhoids, due for repeat in 10 yrs. - Hep A immunity: will need checked, if not immune can initiate vaccination - Hep B immunity: will need checked, if not immune can initiate vaccination - HCC screening [id number]: last CT abd/pelvis 09/28; + cirrhosis ,no mention of liver mass. - Encouraged to abstain from ETOH, illicit drugs, APAP no more than 2g daily - Low salt (2g) daily RTC: 3 months; or sooner prn. ZAK Schreiber Gastroenterology, Chau Fernandes in this encounter Nursing Notes * Caron Escobar, RN - 11/20/2017 3:26 PM EDT Formatting of this note may be different from the original. Chief Complaint Patient presents with RECHECK on EGD recall list Patient reports had recently had a urinary catheter removed and has had blood, she is unsure if blood is from urethra or vagina. Has c/o light headedness. Was to [facility] ER last night from this issue. States no medications were changed at ER. in this encounter Plan of Treatment Upcoming Encounters Date Type Specialty Care Team Description 11/21/2017 Office Visit Gynecology Obstetrics Rosaura Perez, CNM [address] [place] [address] [phone] 11/22/2017 Office Visit Family Practice Nancy Matute MD [address] [place] [address] 11/28/2017 Office Visit Gastroenterology Gadiel Pathak MD [address] [place] [address] 02/13/2018 Office Visit Family Practice Nancy Matute MD [address] [place] [address] 02/26/2018 Office Visit Gastroenterology Lyssa Stout CRNP [address] [place] [address] [phone] 03/20/2018 Office Visit Dermatology Rachel Hill MD [address] [place] [address], [place] [address] [phone] 08/07/2018 Office Visit Sleep Disorders Lanette Fields CRNP [address] [place] [address] [phone] Gw, Nurse Sleep Disorders [address] [place] [address] [phone] Health Maintenance Due Date Last Done Comments [...] history exists DIABETES-URINE MICROALBUMIN EVERY 12 MONTHS 11/01/2018 11/01/2017, 10/18/2017, 02/03/2017, Additional history exists PAP SMEAR-EVERY 3 YRS,AGES [...] fileas of this encounter Visit Diagnoses Diagnosis NG (nonalcoholic steatohep atitis) - Primary Other chronic nonalcoholic liver disease Cirrhosis of liver without a scites, unspecified hepatic cirrhosis type (HCC) in this encounter Insurance Payer Benefit Plan / Group Subscriber ID Type Phone Address [facility] [id number] AETNA [facility] [id number] [facility] [id number] as of this encounter
--- OUTSIDE RECORDS SUMMARY | 2023-05-10 23:35 | External Medical Summary | Summary of Care ---
Author Name Unknown Organization [place] [address] Phone Care Team Providers Care Metal Welder Name Role Phone Nancy Matute MD Primary Care Provider [phone] Encounter Details Date Type Department Care Team Description 11/20/2017 Scan Encounter Unspecified Department <No scans attached> [...] Inhaler 1 06/29/2016 Active Vitamin D, Ergocalciferol, 60330 UNITS CapsuleIndications:Vi tamin D deficiency 1capsule every other week 8 Cap 6 09/27/2016 Active potassium chloride ER 10 MEQ TBCRIndications:Hypok alemia Take 1 Tab by mouth 2 times a day. With food. 60 Tab 5 01/06/2017 Active Blood Glucose Monitoring Suppl ([employer] VERIO) W/DEVICE KITIndications:Type 2 diabetes mellitus with hemoglobin A1c goal of less than 7.0% (HCC) Use as directed. Use daily to check blood sugars DX:E11.9 1 Kit 0 01/17/2017 Active Glucose Blood ([employer] ULTRA BLUE) STRPIndications:Type 2 diabetes mellitus with [...] goal of less than 7.0% ([facility]) Take 1 Tab by mouth 2 [...] bedtime 30 Each 3 10/11/2017 Active nystatin 358892 UNIT/GM creamIndications:Cand idal vulvovaginitis Apply topically to affected area 2 times a day. To affacted area for two weeks. 15 g 2 10/12/2017 Active Blood Glucose Monitoring Suppl ([employer] VERIO) w/Device KITIndications:Type 2 diabetes mellitus with [...] Problems Problem Noted Date Cirrhosis of liver ([facility]) 11/20/2017 Bladder tumor 10/11/2017 Chronic indwelling Cline catheter 2017 Recurrent UTI 10/11/2017 Preoperative cardiovascular examination 10/11/2017 History of Clostridium difficile colitis 08/29/2017 Debility 07/19/2017 Body mass index (BMI) of 50.0 to 59.9 in adult ([facility]) 06/12/2017 Overview: Per Obesity protocol #1 [...] weight or BMI > 40) (HCC) 02/09/2015 03/28/2017 THAD (obstructive sleep apnea) 02/09/2015 [...] pain 01/24/2012 01/17/2017 Genetic Sleep Disorder Research Other*[id number] 05/13/2011 04/07/2016 Lumbosacral spondylosis 12/27/2010 05/25/20 12 [...] Visit Gastroenterology Gadiel Pathak MD [address] [facility] [place] [address] [phone] 02/13/2018 Office Visit Family Practice Nancy Matute MD [address] [place] [address] [phone] 02/26/2018 Office Visit Gastroenterology Lyssa Stout CRNP [address] [facility] [address] [phone] 03/20/2018 Office Visit Dermatology Rachel Hill MD [address] [place] [address] [phone] 08/07/2018 Office Visit Sleep Disorders Lanette Fields CRNP [address] [facility] [address] [phone] [place] Nurse Sleep Disorders [address] [facility] [place] [address] [phone] Health Maintenance Due Date Last Done Comments [...] Group Subscriber ID Type Phone Address [facility] [id number] [employer] [facility] [id number] [facility] [id number] as of this encounter
--- OUTSIDE RECORDS SUMMARY | 2023-05-10 23:35 | External Medical Summary | Summary of Care ---
Author Name Unknown Organization [place] [address] Phone Care Team Providers Care Light Rail Operator Name Role Phone Nancy Matute MD Primary Care Provider [phone] Encounter Details Date Type Department Care Team Description 11/21/2017 Orders Only [place] [address] [place] [address] Nancy Matute MD [address] [place] [address] [phone] [phone] Active Allergy Reactions Severity Noted Date [...] Inhaler 1 06/29/2016 Active Vitamin D, Ergocalciferol, 57054 UNITS CapsuleIndications:Vi tamin D deficiency 1capsule every other week 8 Cap 6 09/27/2016 Active potassium chloride ER 10 MEQ TBCRIndications:Hypok alemia Take 1 Tab by mouth 2 times a day. With food. 60 Tab 5 01/06/2017 Active Blood Glucose Monitoring Suppl ([employer] GlobalTOUCH VERIO) W/DEVICE KITIndications:Type 2 diabetes mellitus with hemoglobin A1c goal of less than 7.0% (HCC) Use as directed. Use daily to check blood sugars DX:E11.9 1 Kit 0 01/17/2017 Active Glucose Blood ([employer] GlobalTOUCH ULTRA BLUE) STRPIndications:Type 2 diabetes mellitus with [...] Dosing Unit 11 01/17/2017 Active Glucose Blood ([employer] GlobalT[employer]CH VERIO) STRP Use up to four times a day as directed.DX:E11. 9 100 Strip 11 01/19/2017 Active busPIRone (BUSPAR) 10 MG Tablet 0 02/14/2017 Active MetFORMIN (GLUCOPHAGE) 1000 MG TabletIndications:Typ e 2 diabetes mellitus with hemoglobin A1c goal of less than 7.0% ([facility]) Take 1 Tab by mouth [...] than 7.0% ([facility]) 10 units at bed time 5 Pre-filled Pen Syringe Dosing Unit 3 10/11/2017 Active Insulin Pen Needle 31G X 6 MM MISCIndications:Type 2 diabetes mellitus with hemoglobin A1c goal of less than 7.0% ([facility]) Use with Lantus Solostar at bedtime 30 Each 3 10/11/2017 Active nystatin 906528 UNIT/GM creamIndications:Cand idal vulvovaginitis Apply topically to affected area 2 times a day. To affacted area for two weeks. 15 g 2 10/12/2017 Active Blood Glucose Monitoring Suppl ([employer] VERIO) w/Device KITIndications:Type 2 diabetes mellitus with hemoglobin A1c goal of less than 7.0% ([facility]) Use up to 4 [...] of 50.0 to 59.9 in adult ([facility]) 06/12/2017 Overview: Per Obesity [...] 03/27/2012 Chronic rhinitis 03/27/2012 Cerebral palsy ([facility]) 01/24/2012 Obstructive sleep apnea [...] chest pain 08/19/2016 01/17/2017 Hepatic cirrhosis ([facility]) 08/19/2016 03/28/20 17 Polyuria 08/09/2016 01/17/2017 Urinary frequency 08/09/2016 01/17/2017 Generalized OA 06/14/2016 03/28/2017 Body mass index (BMI) of 45.0-49.9 in adult ([facility] ) 12/09/2015 01/17/2017 Overview: bmi= 48.04 12/09/15 Need for shingles vaccine 12/09/20152015 Bilateral shoulder pain 08/25/2015 06/07/20 16 Bilateral shoulder pain 07/16/2015 06/07/20 16 Cerebral palsy ([facility]) 04/23/2015 03/28/2017 Candidal vulvovaginitis 02/12/2015 06/07/20 16 Obesity, morbid (more than 1 00 lbs over ideal weight or BMI > 40) ([facility]) 02/09/2015 03/28/2017 THAD (obstructive [...] pain 01/24/2012 01/17/2017 Genetic Sleep Disorder Research Other*[id number] 05/13/2011 04/07/2016 Lumbosacral spondylosis 12/27/2010 05/25/20 12 [...] Visit Gastroenterology Gadiel Pathak MD [address] [place] [address] [phone] 02/13/2018 Office Visit Family Practice Nancy Matute MD [address] [place] [address] [phone] 02/26/2018 Office Visit [facility]astroenterology [facility] [address] [facility] [place] [address] [phone] 03/20/2018 Office Visit Dermatology Rachel Hill MD [address] [place] [address] [phone] 08/07/2018 Office Visit Sleep Disorders Lanette Fields CRNP [address] [facility] [address] [phone] Nurse [place] Sleep [facility] [address] [place] [address] [phone] Pending Results Name Priority Associated Diagnoses Date/Ti me CHEMISTRY-OUTSIDE Routine 11/17/2017 12:00 AM EST Health Maintenance Due Date Last Done [...] Subscriber ID Type Phone Address [facility] [id number] [employer] [id number] [facility] [id number] as of this encounter
--- OUTSIDE RECORDS SUMMARY | 2023-05-10 23:35 | External Medical Summary | Summary of Care ---
Author Name Unknown Organization [place] [address] Phone Care Team Providers Care Environmental Engineer Scientist Name Role Phone Nancy Matute MD Primary Care Provider [phone] Encounter Details Date Type Department Care Team Description 11/21/2017 Scan Encounter Unspecified Department <No scans attached> [...] Inhaler 1 06/29/2016 Active Vitamin D, Ergocalciferol, 09926 UNITS CapsuleIndications:Vi tamin D deficiency 1capsule every other week 8 Cap 6 09/27/2016 Active potassium chloride ER 10 MEQ TBCRIndications:Hypok alemia Take 1 Tab by mouth 2 times a day. With food. 60 Tab 5 01/06/2017 Active Blood Glucose Monitoring Suppl (Ur[employer]OUCH VERIO) W/DEVICE KITIndications:Type 2 diabetes mellitus with hemoglobin A1c goal of less than 7.0% (HCC) Use as directed. Use daily to check blood sugars DX:E11.9 1 Kit 0 01/17/2017 Active Glucose Blood (UrGiftTOUCH ULTRA BLUE) STRPIndications:Type 2 diabetes mellitus with [...] less than 7.0% ([facility]) Take 1 Tab by mouth 2 times [...] less than 7.0% ([facility]) 10 units at bed time 5 Pre-filled Pen Syringe Dosing Unit 3 10/11/2017 Active Insulin Pen Needle 31G X 6 MM MISCIndications:Type 2 diabetes mellitus with hemoglobin A1c goal of less than 7.0% ([facility]) Use with Lantus Solostar at bedtime 30 Each 3 10/11/2017 Active nystatin 137928 UNIT/GM creamIndications:Cand idal vulvovaginitis Apply topically to affected area 2 times a day. To affacted area for two weeks. 15 g 2 10/12/2017 Active Blood Glucose Monitoring Suppl ([employer] VERIO) w/Device KITIndications:Type 2 diabetes mellitus with [...] Noted Date Cirrhosis of liver ([facility]) 11/20/2017 Bladder tumor 10/11/2017 Chronic indwelling Cline [...] pain 01/24/2012 01/17/2017 Genetic Sleep Disorder Research Other*[id number] 05/13/2011 04/07/2016 Lumbosacral spondylosis 12/27/2010 05/25/20 12 [...] Visit Gastroenterology Gadiel Pathak MD [address] [facility] [place] [address] [phone] 02/13/2018 Office Visit Family Practice Nancy Matute MD [address] [place] [address] [phone] 02/26/2018 Office Visit Gastroenterology Lyssa Stout CRNP [address] [facility] [place] [address] [phone] 03/20/2018 Office Visit Dermatology Rachel Hill MD [address] [place] [address] [phone] 08/07/2018 Office Visit Sleep Disorders Lanette Fields CRNP [address] [facility] [address] [phone] [place] Nurse Sleep Disorders [address] [facility] [place] [address] [phone] Health Maintenance Due Date Last Done Comments [...] Group Subscriber ID Type Phone Address [facility] [id number] [employer] [id number] [facility] [id number] as of this encounter
--- OUTSIDE RECORDS SUMMARY | 2023-05-10 23:35 | External Medical Summary | Summary of Care ---
Author Name Unknown Organization [place] [address] Phone Care Team Providers Care Lean Sensei Name Role Phone Nancy Matute MD Primary Care Provider [phone] Reason for Visit * Reason Comments FORMS REQUEST HOME Health Care Encounter Details Date Type Department Care Team Description 11/17/2017 Telephone [place] [address] [place] [address] Nancy Matute MD [address] [place] [address] [phone] FORMS REQUEST (HOME Health Care) Allergies Active Allergy Reactions Severity Noted Date [...] Inhaler 1 06/29/2016 Active Vitamin D, Ergocalciferol, 53033 UNITS CapsuleIndications:Vi tamin D deficiency 1capsule every [...] times a day as directed 100 Strip 01/17/2017 Active ONETOUCH ULTRASOFT LANCETS MISCIndications:Type 2 [...] 7.0% ([facility]) 10 units at bed time 5 Pre-filled Pen Syringe Dosing Unit 3 10/11/2017 Active Insulin Pen Needle 31G X 6 MM MISCIndications:Type 2 diabetes mellitus with hemoglobin A1c goal of less than 7.0% ([facility]) Use with Lantus Solostar at bedtime 30 Each 3 10/11/2017 Active nystatin 870625 UNIT/GM creamIndications:Cand idal vulvovaginitis Apply topically to affected area 2 times a day. To affacted area for two weeks. 15 g 2 10/12/2017 Active Blood Glucose Monitoring Suppl ([employer] VERIO) w/Device KITIndications:Type 2 diabetes mellitus with hemoglobin A1c goal of less than 7.0% ([facility]) Use up to 4 times a day [...] this encounter Active Problems Problem Noted Date Bladder tumor 10/11/2017 Chronic indwelling Cline catheter 2017 Recurrent UTI 10/11/2017 Preoperative cardiovascular examination 10/11/2017 History of Clostridium difficile colitis 08/29/2017 Debility 07/19/2017 Body mass index (BMI) of 50.0 to 59.9 in adult ([facility]) 06/12/2017 Overview: Per Obesity protocol #1 Chronic [...] ([facility]) 01/24/2012 Obstructive sleep apnea 01/18/2011 Overview: 08/18/11 [...] pain 01/24/2012 01/17/2017 Genetic Sleep Disorder Research Other*[id number] 05/13/2011 04/07/2016 Lumbosacral spondylosis 12/27/2010 05/25/20 12 [...] Telephone Encounter - Karyn Ta OSA - 11/20/2017 2:06 PM EDT Form faxed * Telephone Encounter - Nancy Matute MD - 11/20/2017 12:48 PM EDT Signed. Nancy Matute MD * Telephone Encounter - Michaelle Lindquist LPN - 11/17/2017 1:25 PM EST Placed on Dr Land desk for review and signature. * Telephone Encounter - Dulce Call OSA - 11/17/2017 1:03 PM EST Plan of Care , form in ALEJANDRA lauren in this encounter Plan of Treatment Upcoming Encounters Date Type Specialty Care Team Description 11/20/2017 Office Visit Gastroenterology Lyssa Stout CRNP [address] [place] [address] [phone] 11/21/2017 Office Visit Gynecology Obstetrics Rosaura Perez CN [address] [place] [address] [phone] 11/22/2017 Office Visit Family Practice Nancy Matute MD [address] [place] [address] [phone] 11/28/2017 Office Visit Gastroenterology Gadiel Pathak MD [address] [place] [address] [phone] 02/13/2018 Office Visit Family Practice Nancy Matute MD [address] [place] [address] [phone] 03/20/2018 Office Visit Dermatology Rachel Hill MD [address] [place] [address] [phone] 08/07/2018 Office Visit Sleep Disorders Lanette Fields CRNP [address] [place] [address] [phone] [place] Nurse Sleep Disorders [address] [place] [address] [phone] Health Maintenance Due Date Last Done Comments [...] Group Subscriber ID Type Phone Address [facility] [id number] [employer] [id number] [facility] [id number] as of this encounter
--- OUTSIDE RECORDS SUMMARY | 2023-05-10 23:35 | External Medical Summary | Summary of Care ---
Author Name Unknown Organization [place] [address] Phone Care Team Providers Care Polymer Chemist Name Role Phone Nancy Matute MD Primary Care Provider [phone] Encounter Details Date Type Department Care Team Description 11/21/2017 Result Scan Unspecified Department <No scans attached> [...] Inhaler 1 06/29/2016 Active Vitamin D, Ergocalciferol, 79270 UNITS CapsuleIndications:Vi tamin D deficiency 1capsule every other week 8 Cap 6 09/27/2016 Active potassium chloride ER 10 MEQ TBCRIndications:Hypok alemia Take 1 Tab by mouth 2 times a day. With food. 60 Tab 5 01/06/2017 Active Blood Glucose Monitoring Suppl (Rentalroost.comTOUCH VERIO) W/DEVICE KITIndications:Type 2 diabetes mellitus with hemoglobin A1c goal of less than 7.0% (HCC) Use as directed. Use daily to check blood sugars DX:E11.9 1 Kit 0 01/17/2017 Active Glucose Blood (Rentalroost.comTOUCH ULTRA BLUE) STRPIndications:Type 2 diabetes mellitus with [...] of less than 7.0% ([facility]) 10 units at bed time 5 Pre-filled Pen Syringe Dosing Unit 3 10/11/2017 Active Insulin Pen Needle 31G X 6 MM MISCIndications:Type 2 diabetes mellitus with hemoglobin A1c goal of less than 7.0% ([facility]) Use with Lantus Solostar at bedtime 30 Each 3 10/11/2017 Active nystatin 177646 UNIT/GM creamIndications:Cand idal vulvovaginitis Apply topically to affected area 2 times a day. To affacted area for two weeks. 15 g 2 10/12/2017 Active Blood Glucose Monitoring Suppl (VeryLastRoom VERIO) w/Device KITIndications:Type 2 diabetes mellitus with hemoglobin A1c goal of less than 7.0% ([facility]) Use up to 4 times a [...] Problems Problem Noted Date Cirrhosis of liver ([facility]) 11/20/2017 Bladder tumor 10/11/2017 Chronic indwelling Cline catheter 2017 Recurrent UTI 10/11/2017 Preoperative cardiovascular examination 10/11/2017 History of Clostridium difficile colitis 08/29/2017 Debility 07/19/2017 Body mass index (BMI) of 50.0 to 59.9 in adult ([facility]) 06/12/2017 Overview: Per Obesity protocol #1 [...] pain 01/24/2012 01/17/2017 Genetic Sleep Disorder Research Other*[id number] 05/13/2011 04/07/2016 Lumbosacral spondylosis 12/27/2010 05/25/20 12 [...] Visit Gastroenterology Gadiel Pathak MD [address] [place] [address] [phone] 11/28/2017 Office Visit Family Practice Nancy Matute MD [address] [place] [address] [phone] 02/13/2018 Office Visit Family Practice Nancy Matute MD [address] [place] [address] [phone] 02/26/2018 Office Visit Gastroenterology Lyssa Stout CRNP [address] [place] [address] [phone] 03/20/2018 Office Visit Dermatology Rachel Hill MD [address] [place] [address] [phone] 08/07/2018 Office Visit Sleep Disorders Lanette Fields CRNP [address] [facility] [place] [address] [phone] [facility] Nurse Sleep Disorders [address] [place] [address] [phone] Health Maintenance Due Date Last Done Comments [...] on fileas of this encounter Results * ECHOCARDIOLOGY SCANNED RESULT (11/21/2017) in this encounter Insurance Payer Benefit Plan / Group Subscriber ID Type Phone Address [facility] [id number] [employer] [id number] [facility] [id number] as of this encounter
--- OUTSIDE RECORDS SUMMARY | 2023-05-10 23:35 | External Medical Summary | Summary of Care ---
Author Name Unknown Organization [place] [address] Phone Care Team Providers Care Field Crop Farmworker Name Role Phone Nancy Matute MD Primary Care Provider [phone] Encounter Details Date Type Department Care Team [...] Inhaler 1 06/29/2016 Active Vitamin D, Ergocalciferol, 00783 UNITS CapsuleIndications:Vi tamin D deficiency 1capsule every other week 8 Cap 6 09/27/2016 Active potassium chloride ER 10 MEQ TBCRIndications:Hypok alemia Take 1 Tab by mouth 2 times a day. With food. 60 Tab 5 01/06/2017 Active Blood Glucose Monitoring Suppl (IcineticTOUCH VERIO) W/DEVICE KITIndications:Type 2 diabetes mellitus with hemoglobin A1c goal of less than 7.0% (HCC) Use as directed. Use daily to check blood sugars DX:E11.9 1 Kit 0 01/17/2017 Active Glucose Blood (IcineticTOUCH ULTRA BLUE) STRPIndications:Type 2 diabetes mellitus with [...] than 7.0% ([facility]) 10 units at bed time 5 Pre-filled Pen Syringe Dosing Unit 3 10/11/2017 Active Insulin Pen Needle 31G X 6 MM MISCIndications:Type 2 diabetes mellitus with hemoglobin A1c goal of less than 7.0% ([facility]) Use with Lantus Solostar at bedtime 30 Each 3 10/11/2017 Active nystatin 011768 UNIT/GM creamIndications:Cand idal vulvovaginitis Apply topically to affected area 2 times a day. To affacted area for two weeks. 15 g 2 10/12/2017 Active Blood Glucose Monitoring Suppl (hike VERIO) w/Device KITIndications:Type 2 diabetes mellitus with hemoglobin A1c goal of less than 7.0% ([facility]) Use up to 4 times a [...] Noted Date Cirrhosis of liver ([facility]) 11/20/2017 Bladder tumor 10/11/2017 Chronic indwelling Clnie catheter 2017 Recurrent UTI 10/11/2017 Preoperative cardiovascular examination 10/11/2017 History of Clostridium difficile colitis 08/29/2017 Debility 07/19/2017 Body mass index (BMI) of 50.0 to 59.9 in adult ([facility]) 06/12/2017 Overview: Per Obesity protocol #1 [...] pain 01/24/2012 01/17/2017 Genetic Sleep Disorder Research Other*[id number] 05/13/2011 04/07/2016 Lumbosacral spondylosis 12/27/2010 05/25/20 12 [...] Visit Gastroenterology Gadiel Pathak MD [address] [place] [address] [phone] 02/13/2018 Office Visit Family Practice Nancy Matute MD [address] [place] [address] [phone] 02/26/2018 Office Visit Gastroenterology Lyssa Stout CRNP [address] [place] [address] [phone] 03/20/2018 Office Visit Dermatology Rachel Hill MD [address] [place] [address] [phone] 08/07/2018 Office Visit Sleep Disorders Lanette Fields CRNP [address] [facility] [address] [phone] [place] Nurse Sleep Disorders [address] [facility] [address] [phone] Health Maintenance Due Date Last Done Comments [...] Group Subscriber ID Type Phone Address [facility] [id number] [employer] [id number] [facility] [id number] as of this encounter
--- OUTSIDE RECORDS SUMMARY | 2023-05-10 23:35 | External Medical Summary | Summary of Care ---
Author Name Unknown Organization [place] [address] Phone Care Team Providers Care Road Machine Operator Name Role Phone Nancy Matute MD Primary Care Provider [phone] Encounter Details Date Type Department Care Team Description 11/19/2017 Scan Encounter Unspecified Department <No scans attached> [...] Inhaler 1 06/29/2016 Active Vitamin D, Ergocalciferol, 89111 UNITS CapsuleIndications:Vi tamin D deficiency 1capsule every other week 8 Cap 6 09/27/2016 Active potassium chloride ER 10 MEQ TBCRIndications:Hypok alemia Take 1 Tab by mouth 2 times a day. With food. 60 Tab 5 01/06/2017 Active Blood Glucose Monitoring Suppl (Envisia TherapeuticsTOUCH VERIO) W/DEVICE KITIndications:Type 2 diabetes mellitus with hemoglobin A1c goal of less than 7.0% (HCC) Use as directed. Use daily to check blood sugars DX:E11.9 1 Kit 0 01/17/2017 Active Glucose Blood (Envisia TherapeuticsTOUCH ULTRA BLUE) STRPIndications:Type 2 diabetes mellitus [...] ([facility]) 10 units at bed time 5 Pre-filled Pen Syringe Dosing Unit 3 10/11/2017 Active Insulin Pen Needle 31G X 6 MM MISCIndications:Type 2 diabetes mellitus with hemoglobin A1c goal of less than 7.0% ([facility]) Use with Lantus Solostar at bedtime 30 Each 3 10/11/2017 Active nystatin 188922 UNIT/GM creamIndications:Cand idal vulvovaginitis Apply topically to affected area 2 times a day. To affacted area for two weeks. 15 g 2 10/12/2017 Active Blood Glucose Monitoring Suppl (Upplication VERIO) w/Device KITIndications:Type 2 diabetes mellitus with hemoglobin A1c goal of less than 7.0% ([facility]) Use up to 4 times a day [...] Problems Problem Noted Date Cirrhosis of liver ([facility]) 11/20/2017 Bladder tumor 10/11/2017 Chronic indwelling Cline catheter 2017 Recurrent UTI 10/11/2017 Preoperative cardiovascular examination 10/11/2017 History of Clostridium difficile colitis 08/29/2017 Debility 07/19/2017 Body mass index (BMI) of 50.0 to 59.9 in adult ([facility]) 06/12/2017 Overview: Per Obesity protocol #1 Chronic [...] [facility] 09/26/2013 Overview: ICD-10 update of inactive term [...] Atypical chest pain 08/19/2016 01/17/2017 Hepatic cirrhosis ([facility]) 08/19/2016 03/28/20 17 Polyuria 08/09/2016 01/17/2017 Urinary frequency 08/09/2016 01/17/2017 Generalized OA 06/14/2016 03/28/2017 Body mass index (BMI) of 45.0-49.9 in adult ([facility] ) 12/09/2015 01/17/2017 Overview: bmi= 48.04 12/09/15 Need for shingles vaccine 12/09/20152015 Bilateral shoulder pain 08/25/2015 06/07/20 16 Bilateral shoulder pain 07/16/2015 06/07/20 16 Cerebral palsy ([facility]) 04/23/2015 03/28/2017 Candidal vulvovaginitis 02/12/2015 06/07/20 16 [...] BMI > 40) ([facility]) 10/28/2013 01/17/2017 Overview: bmi= 53.93 10/28/13 Sleep [...] BMI > 40) ([facility]) 05/25/2012 01/17/2017 Overview: BMI= 55.27 05/25/12 Impacted [...] pain 01/24/2012 01/17/2017 Genetic Sleep Disorder Research Other*[id number] 05/13/2011 04/07/2016 Lumbosacral spondylosis 12/27/2010 05/25/20 12 Dyslipidemia, goal LDL below 130 06/01/2010 03/28/2012 Asthma with severity to be determined 03/04/2010 11/01/2011 Overview: Per Asthma Taxonomy ICD-10 update of inactive term Asthma in remission 03/04/2010 01/09/2013 Overview: Per Provider Protocol. Obesity, morbid (more than 1 00 lbs over ideal weight or BMI > 40) ([facility]) 12/08/2009 07/02/2014 Overview: Per Obesity Taxonomy ICD-10 [...] Visit Gynecology Obstetrics Rosaura Perez, CNM [address] [place] [address] [phone] 11/22/2017 Office Visit Family Practice Nancy Matute MD [address] [place] [address] [phone] 11/28/2017 Office Visit Gastroenterology Gadiel Pathak MD [address] [place], [place] [address] 02/13/2018 Office Visit [facility] Nancy Matute MD [address] [place] [address] [phone] 02/26/2018 Office Visit Gastroenterology Lyssa Stout CRNP [address] [place] [address] [phone] 03/20/2018 Office Visit Dermatology Rachel Hill MD [address] [place] [address], [place] [address] [phone] 08/07/2018 Office Visit Sleep Disorders Lanette Fields CRNP [address] [place] [address] [phone] Nurse [facility] Sleep Disorders [address] [place] [address] [phone] Health Maintenance Due Date Last Done Comments [...] Subscriber ID Type Phone Address [facility] [id number] [employer] [id number] [facility] [id number] as of this encounter
--- OUTSIDE RECORDS SUMMARY | 2023-05-10 23:35 | External Medical Summary | Summary of Care ---
Author Name Unknown Organization [place] [address] Phone Care Team Providers Care Ball Winder Name Role Phone Nancy Matute MD Primary Care Provider [phone] Reason for Visit * Reason Comments EMERGENCY DEPARTMENT FOLLOW-UP Encounter Details Date Type Department Care Team Description 11/20/2017 Telephone [address] [place] [address] Nancy Matute MD [address] [place] [address] [phone] EMERGENCY DEPARTMENT FOLLOW-UP Allergies Active Allergy Reactions [...] Inhaler 1 06/29/2016 Active Vitamin D, Ergocalciferol, 16478 UNITS CapsuleIndications:Vi tamin D deficiency 1capsule every other week 8 Cap 6 09/27/2016 Active potassium chloride ER 10 MEQ TBCRIndications:Hypok alemia Take 1 Tab by mouth 2 times a day. With food. 60 Tab 5 01/06/2017 Active Blood Glucose Monitoring Suppl (BTC ChinaTOUCH VERIO) W/DEVICE KITIndications:Type 2 diabetes mellitus with hemoglobin A1c goal of less than 7.0% (HCC) Use as directed. Use daily to check blood sugars DX:E11.9 1 Kit 0 01/17/2017 Active Glucose Blood (Pong Research CorporationUCH ULTRA BLUE) STRPIndications:Type 2 diabetes mellitus with [...] of less than 7.0% ([facility]) 10 units at bed time 5 Pre-filled Pen Syringe Dosing Unit 3 10/11/2017 Active Insulin Pen Needle 31G X 6 MM MISCIndications:Type 2 diabetes mellitus with hemoglobin A1c goal of less than 7.0% ([facility]) Use with Lantus Solostar at bedtime 30 Each 3 10/11/2017 Active nystatin 425369 UNIT/GM creamIndications:Cand idal vulvovaginitis Apply topically to affected area 2 times a day. To affacted area for two weeks. 15 g 2 10/12/2017 Active Blood Glucose Monitoring Suppl (WiQuest Communications VERIO) w/Device KITIndications:Type 2 diabetes mellitus [...] 03/27/2012 Cerebral palsy ([facility]) 01/24/2012 Obstructive sleep apnea 01/18/2011 Overview: 08/18/11 [...] pain 08/19/2016 01/17/2017 Hepatic cirrhosis ([facility]) 08/19/2016 03/28/20 [...] Leg weakness, bilateral 01/01/2015 09/27/20 16 Allergic conjunctivitis of both eyes 05/29/2014 [...] pain 01/24/2012 01/17/2017 Genetic Sleep Disorder Research Other*[id number] 05/13/2011 04/07/2016 Lumbosacral spondylosis 12/27/2010 05/25/20 12 Dyslipidemia, goal LDL below 130 06/01/2010 03/28/2012 Asthma with severity to be determined 03/04/2010 11/01/2011 Overview: Per Asthma Taxonomy ICD-10 update of inactive term Asthma in remission 03/04/2010 01/09/2013 Overview: Per Provider Protocol. Obesity, morbid (more than 1 00 lbs over ideal weight or BMI > 40) ([facility]) 12/08/2009 07/02/2014 Overview: Per Obesity Taxonomy ICD-10 [...] encounter Miscellaneous Notes * Telephone Encounter - Gabi Meraz LPN - 11/20/2017 10:53 AM EDT Pt calling states that she is at [facility] ED several time this weekend. Pt Dx with bladder infection and they advised her the her blood count was off as well. Pt is scheduled 11/22/17 at 0900. * Telephone Encounter - Ava Manzanares OSA - 11/20/2017 10:52 AM EDT Reason for patient's call: ER f/u Caller was transferred to [facility] at the dedicated phone nurse line. in this encounter Plan of Treatment Upcoming Encounters Date Type Specialty Care Team Description 11/20/2017 Office Visit Gastroenterology Lyssa Stout CRNP [address] [place] [address] [phone] 11/21/2017 Office Visit Gynecology Obstetrics Rosaura Perez, [facility] [address] [facility] [place] [address] [phone] 11/22/2017 Office Visit Family Practice Nancy Matute MD [address] [place] [address] [phone] 11/28/2017 Office Visit Gastroenterology Gadiel Pathak MD [address] [place] [address] [phone] 02/13/2018 Office Visit Family Practice Nancy Matute MD [address] [place] [address] [phone] 03/20/2018 Office Visit Dermatology Rachel Hill MD [address] [place] [address] [phone] 08/07/2018 Office Visit Sleep Disorders Lanette Fields CRNP [address] [place] [address] [phone] Nurse [facility] Sleep Disorders [address] [place] [address] [phone] Health Maintenance Due Date Last Done Comments [...] [facility] BLUE [facility] [id number] [employer] [id number] [facility] [id number] as of this encounter
--- OUTSIDE RECORDS SUMMARY | 2023-05-10 23:35 | External Medical Summary | Summary of Care ---
Author Name Unknown Organization [place] [address] Phone Care Team Providers Care Recreation Worker Name Role Phone Nancy Matute MD Primary Care Provider [phone] Encounter Details Date Type Department Care Team Description 11/21/2017 Orders Only [address] [place] [address] Nancy Matute MD [address] [place] [address] [phone] Allergies Active Allergy Reactions Severity Noted Date [...] Inhaler 1 06/29/2016 Active Vitamin D, Ergocalciferol, 73015 UNITS CapsuleIndications:Vi tamin D deficiency 1capsule every other week 8 Cap 6 09/27/2016 Active potassium chloride ER 10 MEQ TBCRIndications:Hypok alemia Take 1 Tab by mouth 2 times a day. With food. 60 Tab 5 01/06/2017 Active Blood Glucose Monitoring Suppl (PruffiTOUCH VERIO) W/DEVICE KITIndications:Type 2 diabetes mellitus with hemoglobin A1c goal of less than 7.0% (HCC) Use as directed. Use daily to check blood sugars DX:E11.9 1 Kit 0 01/17/2017 Active Glucose Blood (PruffiTOUCH ULTRA BLUE) STRPIndications:Type 2 diabetes mellitus with [...] Dosing Unit 11 01/17/2017 Active Glucose Blood (PruffiTOUCH VERIO) STRP Use up to four times [...] than 7.0% ([facility]) 10 units at bed time 5 Pre-filled Pen Syringe Dosing Unit 3 10/11/2017 Active Insulin Pen Needle 31G X 6 MM MISCIndications:Type 2 diabetes mellitus with hemoglobin A1c goal of less than 7.0% ([facility]) Use with Lantus Solostar at bedtime 30 Each 3 10/11/2017 Active nystatin 899050 UNIT/GM creamIndications:Cand idal vulvovaginitis Apply topically to affected area 2 times a day. To affacted area for two weeks. 15 g 2 10/12/2017 Active Blood Glucose Monitoring Suppl (Creation Technologies VERIO) w/Device KITIndications:Type 2 diabetes mellitus with hemoglobin A1c goal of less than 7.0% ([facility]) Use up to 4 times [...] 50.0 to 59.9 in adult ([facility]) 06/12/2017 Overview: Per Obesity protocol [...] palsy ([facility]) 01/24/2012 Obstructive sleep apnea 01/18/2011 [...] pain 08/19/2016 01/17/2017 Hepatic cirrhosis ([facility]) [...] 40) ([facility]) 02/09/2015 03/28/2017 THAD (obstructive sleep [...] pain 01/24/2012 01/17/2017 Genetic Sleep Disorder Research Other*[id number] 05/13/2011 04/07/2016 Lumbosacral spondylosis 12/27/2010 05/25/20 12 [...] Visit Gastroenterology Gadiel Pathak MD [address] [place] [address] [phone] 02/13/2018 Office Visit Family Practice Nancy Matute MD [address] [place] [address] [phone] 02/26/2018 Office Visit [facility]ology [facility]out [facility] [address] [facility] [address] [phone] 03/20/2018 Office Visit Dermatology Rachel Hill MD [address] [place] [address] [phone] 08/07/2018 Office Visit Sleep Disorders Lanette Fields CRNP [address] [facility] [address] [phone] Nurse [facility] [address] [facility] [address] [phone] Pending Results Name Priority Associated Diagnoses Date/Ti me CHEMISTRY-OUTSIDE Routine 11/19/2017 12:00 AM EST Health Maintenance Due Date [...] ID Type Phone Address [facility] [id number] [employer] [id number] [facility] [id number] as of this encounter
--- OUTSIDE RECORDS SUMMARY | 2023-05-10 23:36 | External Medical Summary | Summary of Care ---
Author Name Unknown Organization [place] [address] Phone Care Team Providers Care Revenue Coordinator Name Role Phone Nancy Matute MD Primary Care Provider [phone] Encounter Details Date Type Department Care Team Description 11/14/2017 Scan Encounter Sleep Disorders, [facility] [address] [facility] [place] [address] Lan[facility] Fields CRNP [facility] [id number] <No scans attached> Allergies Active Allergy Reactions [...] Inhaler 1 06/29/2016 Active Vitamin D, Ergocalciferol, 73902 UNITS CapsuleIndications:Vi tamin D deficiency 1capsule every other week 8 Cap 6 09/27/2016 Active potassium chloride ER 10 MEQ TBCRIndications:Hypok alemia Take 1 Tab by mouth 2 times a day. With food. 60 Tab 5 01/06/2017 Active Blood Glucose Monitoring Suppl (Frontline GmbHTOUCH VERIO) W/DEVICE KITIndications:Type 2 diabetes mellitus with hemoglobin A1c goal of less than 7.0% (HCC) Use as directed. Use daily to check blood sugars DX:E11.9 1 Kit 0 01/17/2017 Active Glucose Blood (Frontline GmbHTOUCH ULTRA BLUE) STRPIndications:Type 2 diabetes mellitus with [...] less than 7.0% ([facility]) 10 units at bed time 5 Pre-filled Pen Syringe Dosing Unit 3 10/11/2017 Active Insulin Pen Needle 31G X 6 MM MISCIndications:Type 2 diabetes mellitus with hemoglobin A1c goal of less than 7.0% (HCC) Use with Lantus Solostar at bedtime 30 Each 3 10/11/2017 Active nystatin 813363 UNIT/GM creamIndications:Cand idal vulvovaginitis Apply topically to affected area 2 times a day. To affacted area for two weeks. 15 g 2 10/12/2017 Active Blood Glucose Monitoring Suppl (Speakap VERIO) w/Device KITIndications:Type 2 diabetes mellitus with hemoglobin A1c goal of less than 7.0% ([facility]) Use up to 4 times a day E11.9 1 Kit 0 10/17/2017 Active Hydrocodone-Acetamino phen (NORCO) 10-325 MG per tabletIndications:Spi nal stenosis of lumbar region without neurogenic claudication,DDD (degenerative disc disease), lumbar,MEDICATION USE AGREEMENT Take 1 Tab by mouth 2 times a day as needed for Pain. 60 Tab 0 11/09/2017 Active as of this encounter Active Problems Problem Noted Date Bladder tumor 10/11/2017 Chronic indwelling Cline catheter 2017 Recurrent UTI 10/11/2017 Preoperative cardiovascular examination 10/11/2017 History of Clostridium difficile colitis 08/29/2017 Debility 07/19/2017 Body mass index (BMI) of 50.0 to 59.9 in adult (HCC) 06/12/2017 Overview: Per Obesity protocol #1 Chronic [...] 140/90 03/27/2012 Chronic rhinitis 03/27/2012 Cerebral palsy ([facility]) 01/24/2012 Obstructive sleep apnea 01/18/2011 [...] Atypical chest pain 08/19/2016 01/17/2017 Hepatic cirrhosis ([facility]) 08/19/2016 [...] pain 01/24/2012 01/17/2017 Genetic Sleep Disorder Research Other*[id number] 05/13/2011 04/07/2016 Lumbosacral spondylosis 12/27/2010 05/25/20 12 Dyslipidemia, goal LDL below 130 06/01/2010 03/28/2012 Asthma with severity to be determined 03/04/2010 11/01/2011 Overview: Per Asthma Taxonomy ICD-10 update of inactive term Asthma in remission 03/04/2010 01/09/2013 Overview: Per Provider Protocol. Obesity, morbid (more than 1 00 lbs over ideal weight or BMI > 40) ([facility]) 12/08/2009 07/02/2014 Overview: Per Obesity [...] Stout [facility] [address] [facility] [address] [phone] 11/28/2017 Office Visit Gastroenterology Gadiel Pathak MD [address] [place], [place] [address] 02/13/2018 Office Visit Family Practice Nancy Matute MD [address] [place], [place] [address] 03/20/2018 Office Visit Dermatology Rachel Hill MD [address] [place] [address] [phone] 08/07/2018 Office Visit Sleep Disorders Lanette Fields CRNP [address] [facility] [address] [phone] [facility] Nurse Sleep Disorders [address] [place] [address] [phone] Health Maintenance Due Date Last Done Comments [...] Group Subscriber ID Type Phone Address [facility] [id number] [employer] [id number] [facility] [id number] as of this encounter
--- OUTSIDE RECORDS SUMMARY | 2023-05-10 23:36 | External Medical Summary | Summary of Care ---
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 9 100 Strip 11 01/19/2017 Active gabapentin (NEURONTIN) 300 MG CapsuleIndications:Ce rvical spondylosis One pill in am, one midday, two in pm, as directed, increase up to 2 capsules 3 times daily 180 Cap 5 03/21/2017 Active busPIRone (BUSPAR) 10 MG Tablet 0 [...] other meds) 30 Tab 5 10/11/2017 Active Hydrocodone-Acetamino phen (NORCO) 10-325 MG per tabletIndications:Spi nal stenosis of lumbar region without neurogenic claudication,DDD (degenerative disc disease), lumbar,MEDICATION USE AGREEMENT Take 1 Tab by mouth 2 times a day as needed for Pain. 60 Tab 0 10/11/2017 Active fluticasone (FLONASE) 50 MCG/ACT nasal sprayIndications:Sinu s congestion Administer 2 Sprays into each nostril daily. 1 Inhaler 5 10/11/2017 Active insulin glargine (LANTUS SOLOSTAR) 100 UNIT/ML SOPNIndications:Type 2 diabetes mellitus with hemoglobin A1c goal of less than 7.0% ([facility]) 10 units at bed time 5 Pre-filled Pen Syringe Dosing Unit 3 10/11/2017 Active Insulin Pen Needle 31G X 6 MM MISCIndications:Type 2 diabetes mellitus with hemoglobin A1c goal of less than 7.0% ([facility]) Use with Lantus Solostar at bedtime 30 Each 3 10/11/2017 Active nystatin 166808 UNIT/GM creamIndications:Cand idal vulvovaginitis Apply topically to affected area 2 times a day. To affacted area for two weeks. 15 g 2 10/12/2017 Active Blood Glucose Monitoring Suppl ([employer] VERIO) w/Device KITIndications:Type 2 diabetes mellitus with hemoglobin A1c goal of less than 7.0% ([facility]) Use up to 4 times a day E11.9 1 Kit 0 10/17/2017 Active as of this encounter Active Problems Problem Noted Date Bladder tumor 10/11/2017 Chronic indwelling Cline catheter 2017 Recurrent UTI 10/11/2017 Preoperative cardiovascular examination 10/11/2017 History of Clostridium difficile colitis 08/29/2017 Debility 07/19/2017 Body mass index (BMI) of 50.0 to 59.9 in adult ([facility]) 06/12/2017 Overview: Per Obesity protocol #1 Chronic [...] Atypical chest pain 08/19/2016 01/17/2017 Hepatic cirrhosis ([facility]) 08/19/2016 03/28/20 17 Polyuria [...] pain 01/24/2012 01/17/2017 Genetic Sleep Disorder Research Other*[id number] 05/13/2011 04/07/2016 Lumbosacral spondylosis 12/27/2010 05/25/20 12 Dyslipidemia, goal LDL below 130 06/01/2010 03/28/2012 Asthma with severity to be determined 03/04/2010 11/01/2011 Overview: Per Asthma Taxonomy ICD-10 update of inactive term Asthma in remission 03/04/2010 01/09/2013 Overview: Per Provider Protocol. Obesity, morbid (more than 1 00 lbs over ideal weight or BMI > 40) ([facility]) 12/08/2009 07/02/2014 Overview: Per Obesity Taxonomy ICD-10 [...] Encounters Date Type Specialty Care Team Description 11/16/2017 Office Visit Gynecology Obstetrics Franca Carlin, ZAK [address] [place] [address] [phone] 11/20/2017 Office Visit Gastroenterology Lyssa Stout CRNP [address] [place] [address] [phone] 11/21/2017 Office Visit Family Practice Nancy Matute MD [address] [place], [place] [address] 11/28/2017 Office Visit Gastroenterology Gadiel Pathak MD [address] [place] [address] 03/20/2018 Office Visit Dermatology Rachel Hill MD [address] [facility] [place] [address] [phone] 08/07/2018 Office Visit Sleep Disorders Lanette Fields CRNP [address] [place] [address] [phone] Nurse [facility] [address] [facility] [place] [address] [phone] Health Maintenance Due Date Last Done Comments [...] this encounter Results * RADIOLOGY SCANNED RESULT (11/07/2017) in this encounter Insurance Payer Benefit Plan / Group Subscriber ID Type Phone Address [facility] [id number] [employer] [id number] [facility] [id number] as of this encounter
--- OUTSIDE RECORDS SUMMARY | 2023-05-10 23:36 | External Medical Summary | Summary of Care ---
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 Name Role Phone Nancy Matute MD Primary Care Provider [phone] Encounter Details Date Type Department Care Team Description 11/13/2017 Scan Encounter Unspecified Department <No scans attached> [...] Inhaler 1 06/29/2016 Active Vitamin D, Ergocalciferol, 75100 UNITS CapsuleIndications:Vi tamin D deficiency 1capsule every [...] of less than 7.0% ([facility]) 10 units at bed time 5 Pre-filled Pen Syringe Dosing Unit 3 10/11/2017 Active Insulin Pen Needle 31G X 6 MM MISCIndications:Type 2 diabetes mellitus with hemoglobin A1c goal of less than 7.0% ([facility]) Use with Lantus Solostar at bedtime 30 Each 3 10/11/2017 Active nystatin 861169 UNIT/GM creamIndications:Cand idal vulvovaginitis Apply topically to affected area 2 times a day. To affacted area for two weeks. 15 g 2 10/12/2017 Active Blood Glucose Monitoring Suppl ([employer] VERIO) w/Device KITIndications:Type 2 diabetes mellitus with hemoglobin A1c goal of less than 7.0% ([facility]) Use up to 4 times [...] 50.0 to 59.9 in adult ([facility]) 06/12/2017 Overview: Per Obesity protocol #1 Chronic pain syndrome 01/17/2017 MEDICATION USE AGREEMENT 01/17/2017 Overview: 01/17/17 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 01/17/2017 Acquired hypothyroidism 12/12/2016 Depression with anxiety 08/19/2016 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 1 10/09/2015 Restrictive lung disease 12/10/2014 Allergic rhinitis 05/29/2014 Type 2 diabetes mellitus with hemoglobin A1c goal of less than 7.0% ([facility]) 09/26/2013 Overview: ICD-10 update of [...] pain 08/19/2016 01/17/2017 Hepatic cirrhosis ([facility]) 08/19/2016 03/28/20 17 Polyuria 08/09/2016 01/17/2017 Urinary frequency 08/09/2016 01/17/2017 Generalized OA 06/14/2016 03/28/2017 Body mass index (BMI) of 45.0-49.9 in adult ([facility] ) 12/09/2015 01/17/2017 Overview: bmi= 48.04 12/09/15 Need for shingles vaccine 12/09/20152015 Bilateral shoulder pain 08/25/2015 06/07/20 16 Bilateral shoulder pain 07/16/2015 06/07/20 16 Cerebral palsy (HCC) 04/23/2015 03/28/2017 Candidal vulvovaginitis 02/12/2015 06/07/20 16 Obesity, morbid (more than 1 00 lbs over ideal weight or BMI > 40) ([facility]) 02/09/2015 03/28/2017 THAD (obstructive sleep [...] or BMI > 40) ([facility]) 10/28/2013 01/17/2017 Overview: bmi= 53.93 [...] or BMI > 40) ([facility]) 05/25/2012 01/17/2017 Overview: BMI= 55.27 [...] pain 01/24/2012 01/17/2017 Genetic Sleep Disorder Research Other*[id number] 05/13/2011 04/07/2016 Lumbosacral spondylosis 12/27/2010 05/25/20 12 Dyslipidemia, goal LDL below 130 06/01/2010 03/28/2012 Asthma with severity to be determined 03/04/2010 11/01/2011 Overview: Per Asthma Taxonomy ICD-10 update of inactive term Asthma in remission 03/04/2010 01/09/2013 Overview: Per Provider Protocol. Obesity, morbid (more than 1 00 lbs over ideal weight or BMI > 40) ([facility]) 12/08/2009 07/02/2014 Overview: Per Obesity [...] Encounters Date Type Specialty Care Team Description 11/17/2017 Office Visit Gynecology Obstetrics Suyapa Kilgore, CNM [address] [place] [address] [phone] 11/20/2017 Office Visit Gastroenterology Lyssa Stout CRNP [address] [facility] [place] [address] [phone] 11/28/2017 Office Visit Gastroenterology Gadiel Pathak MD [address] [place] [address] 02/13/2018 Office Visit Family Practice Nancy Matute MD [address] [place], [place] [address] 03/20/2018 Office Visit Dermatology Rachel Hill MD [address] [place] [address] [phone] 08/07/2018 Office Visit Sleep Disorders Lanette Fields CRNP [address] [place] [address] [phone] [facility] Nurse Sleep Disorders 132 [facility] [place] [address] [phone] Health Maintenance Due Date Last Done Comments [...] / Group Subscriber ID Type Phone Address [facility] [id number] [employer] [facility] [id number] [facility] [id number] as of this encounter
--- OUTSIDE RECORDS SUMMARY | 2023-05-10 23:36 | External Medical Summary | Summary of Care ---
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 With food. 60 Tab 5 01/06/2017 Active Blood Glucose Monitoring Suppl ([employer] VERIO) W/DEVICE KITIndications:Type 2 diabetes mellitus with hemoglobin A1c goal of less than 7.0% (HCC) Use as directed. Use daily to check blood sugars DX:E11.9 1 Kit 0 01/17/2017 Active Glucose Blood ([employer] ULTRA BLUE) STRPIndications:Type 2 diabetes mellitus with [...] than 7.0% ([facility]) 10 units at bed time 5 Pre-filled Pen Syringe Dosing Unit 3 10/11/2017 Active Insulin Pen Needle 31G X 6 MM MISCIndications:Type 2 diabetes mellitus with hemoglobin A1c goal of less than 7.0% ([facility]) Use with Lantus Solostar at bedtime 30 Each 3 10/11/2017 Active nystatin 415477 UNIT/GM creamIndications:Cand idal vulvovaginitis Apply topically to affected area 2 times a day. To affacted area for two weeks. 15 g 2 10/12/2017 Active Blood Glucose Monitoring Suppl ([employer] VERIO) w/Device KITIndications:Type 2 diabetes mellitus with hemoglobin A1c goal of less than 7.0% ([facility]) Use up to 4 times a [...] (BMI) of 50.0 to 59.9 in adult ([facility]) 06/12/2017 Overview: Per Obesity protocol #1 [...] pain 01/24/2012 01/17/2017 Genetic Sleep Disorder Research Other*[id number] 05/13/2011 04/07/2016 Lumbosacral spondylosis 12/27/2010 05/25/20 12 [...] Office Visit Gastroenterology Lyssa Stout CRNP [address] [facility] [address] [phone] 11/28/2017 Office Visit Gastroenterology Gadiel Pathak MD [address] [place] [facility] [place] [address] 02/13/2018 Office Visit Family Practice Nancy Matute MD [address] [place] [address] [phone] 03/20/2018 Office Visit Dermatology Rachel Hill MD [address] [place] [address] [phone] 08/07/2018 Office Visit Sleep Disorders Lanette Fields CRNP [address] [facility] [address] [phone] Nurse [facility] [address] [place] [address] [phone] Health Maintenance Due Date Last Done Comments [...] Group Subscriber ID Type Phone Address [facility] [id number] [employer] A[employer]NA [facility] [id number] [facility] [id number] as of this encounter
--- OUTSIDE RECORDS SUMMARY | 2023-05-10 23:36 | External Medical Summary | Summary of Care ---
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 Officer Naval Activity Name Role Phone Nancy Roberts MD Primary Care Provider [phone] Reason for Visit * Reason Comments MEDICATION REFILL Encounter Details Date Type Department Care Team Description 11/16/[address] [address] Nancy Roberts MD [address] [place] [address] [phone] Allergies Active Allergy Reactions Severity Noted Date [...] 05/29/2014 Active fluticasone (FLONASE) 50 MCG/ACT nasal sprayIndications:Si [...] Inhaler 1 06/29/2016 Active Vitamin D, Ergocalciferol, 39679 UNITS CapsuleIndications: Vitamin D deficiency 1capsule every other week 8 Cap 6 09/27/2016 Active potassium chloride ER 10 MEQ TBCRIndications:Hyp okalemia Take 1 Tab by mouth 2 times a day. With food. 60 Tab 5 01/06/2017 Active Blood Glucose Monitoring Suppl ([employer] VERIO) W/DEVICE KITIndications:Type 2 diabetes mellitus with hemoglobin A1c goal of less than 7.0% (HCC) Use as directed. Use daily to check blood sugars DX:E11.9 1 Kit 0 01/17/2017 Active Glucose Blood ([employer] ULTRA BLUE) STRPIndications:Typ e 2 diabetes mellitus [...] at bedtime. 30 Tab 0 09/08/2017 Active albuterol-ipratropi um (DUONEB) 2.5-0.5 MG/3ML [...] of less than 7.0% ([facility]) 10 units at bed time 5 Pre-filled Pen Syringe Dosing Unit 3 10/11/2017 Active Insulin Pen Needle 31G X 6 MM MISCIndications:Typ e 2 diabetes mellitus with hemoglobin A1c goal of less than 7.0% ([facility]) Use with Lantus Solostar at bedtime 30 Each 3 10/11/2017 Active nystatin 529259 UNIT/GM creamIndications:Ca ndidal vulvovaginitis Apply topically to affected area 2 times a day. To affacted area for two weeks. 15 g 2 10/12/2017 Active Blood Glucose Monitoring Suppl (Language[employer] VERIO) w/Device KITIndications:Type 2 diabetes mellitus with hemoglobin A1c goal of less than 7.0% ([facility]) Use up to 4 times a [...] times daily 180 Cap 5 11/16/2017 Active gabapentin (NEURONTIN) 300 MG CapsuleIndications: Cervical spondylosis One pill in am, one midday, two in pm, as directed, increase up to 2 capsules 3 times daily 180 Cap 5 03/21/2017 11/17/19 18 Discontinued as of this encounter Active Problems Problem Noted Date Bladder tumor 10/11/2017 Chronic indwelling Cline catheter 2017 Recurrent UTI 10/11/2017 Preoperative cardiovascular examination 10/11/2017 History of Clostridium difficile colitis 08/29/2017 Debility 07/19/2017 Body mass index (BMI) of 50.0 to 59.9 in adult ([facility]) 06/12/2017 Overview: Per Obesity protocol #1 Chronic pain syndrome 01/17/2017 MEDICATION USE AGREEMENT 01/17/2017 Overview: 01/17/17 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 01/17/2017 Acquired hypothyroidism 12/12/2016 Depression with anxiety 08/19/2016 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 1 10/09/2015 Restrictive lung disease 12/10/2014 Allergic rhinitis 05/29/2014 Type 2 diabetes mellitus with hemoglobin A1c goal of less than 7.0% ([facility]) 09/26/2013 Overview: ICD-10 update of inactive term Vitamin D deficiency 09/26/2013 Lymphedema 03/11/2013 Intermittent asthma with reliever use up to twice per week 01/09/2013 Stasis dermatitis 05/07/2012 NG (nonalcoholic steatohepatitis) 04/12 Diverticulosis of colon 05/02/2012 HTN, goal below 140/90 03/27/2012 Chronic rhinitis 03/27/2012 Cerebral palsy ([facility]) 01/24/2012 Obstructive sleep apnea 01/18/2011 Overview: [...] Atypical chest pain 08/19/2016 01/17/2017 Hepatic cirrhosis ([facility]) 08/19/2016 03/28/20 [...] pain 01/24/2012 01/17/2017 Genetic Sleep Disorder Research Other*[id number] 05/13/2011 04/07/2016 Lumbosacral spondylosis 12/27/2010 05/25/20 12 [...] Telephone Encounter - Nancy Roberts MD - 11/16/2017 3:13 PM EST Signed Prescriptions: Disp Refills gabapentin (NEURONTIN) 300 MG Capsule 180 Cap5 Sig: One pill in am, one midday, two in pm, as directed, increase up to 2 capsules 3 times daily Authorizing Provider: Nancy ROBERTS * Telephone Encounter - Rosy Dolan [facility] - 11/16/2017 1:01 PM EST Pending Prescriptions: Disp Refills gabapentin (NEURONTIN) 300 MG Capsule 180 Cap5 Sig: One pill in am, one midday, two in pm, as directed, increase up to 2 capsules 3 times daily Last Office Visit: 11/09/2017 Next Office Visit: 02/13/2018 Scheduled Provider(s): Nancy Roberts MD If no future appointments scheduled, and last appointment is greater than a year ago, please schedule patient for a follow-up appointment Last date the medication was ordered: 03/21/2017 Phone number(s): [phone] (home) Labs: CREATININE-OUTSIDE LAB(MG/DL) Lucio Dt/Tm Resulted Value Status 11/01/17 11/03/17 0.89 FINAL POTASSIUM-OUTSIDE LAB(MMOL/L) Lucio Dt/Tm Resulted Value Status 11/01/17 11/03/17 3.7 FINAL LDL (DIRECT MEASURE)(mg/dL) Lucio Dt/Tm Resulted Value Status 10/11/17 1:18P 10/11/17 57 FINAL ALT(U/L) Lucio Dt/Tm Resulted Value Status 03/28/17 3:31P 03/28/17 26 FINAL TSH(uIU/mL) Lucio Dt/Tm Resulted Value Status 02/01/17 11:19A 02/01/17 0.01* FINAL Hemoglobin AIC Results: HEMOGLOBIN, A1C(%) Lucio Dt/Tm Resulted Value Status 10/11/17 1:18P 10/11/17 6.9* FINAL 03/28/17 3:31P 03/28/17 6.6* FINAL 02/01/17 11:19A 02/01/17 6.9* FINAL in this encounter Plan of Treatment Upcoming Encounters Date Type Specialty Care Team Description 11/17/2017 Office Visit Gynecology Obstetrics Suyapa Kilgore CNM [address] [place] [address] 11/20/2017 Office Visit Gastroenterology Lyssa Stout CRNP [address] [facility] [place] [address] 11/28/2017 Office Visit Gastroenterology Gadiel Pathak MD [address] [place] [facility] [address] 02/13/2018 Office Visit Family Practice Nancy Roberts MD [address] [place] [address] [phone] 03/20/2018 Office Visit Dermatology Rachel Hill MD [address] [place] [address] [phone] 08/07/2018 Office Visit Sleep Disorders Lanette Fields CRNP [address] [facility] [place] [address] Nurse [facility] [address] [facility] [place] [address] Health Maintenance Due Date Last Done [...] / Group Subscriber ID Type Phone Address [facility] [id number] [employer] [id number] [facility] [id number] as of this encounter
--- OUTSIDE RECORDS SUMMARY | 2023-05-10 23:36 | External Medical Summary | Summary of Care ---
Author Name Unknown Organization [place] [address] Phone Care Team Providers Care Server Software Engineer Name Role Phone Nancy Matute MD Primary Care Provider [phone] Reason for Visit * Reason Comments HOSPITAL FOLLOW-UP Encounter Details Date Type Department Care Team Description 11/09/2017 Office Visit [address] [address] Nancy Matute MD [address] [place] [address] [phone] Injury of left ankle, initial encounter*;Cerebral palsy, unspecified type ([facility]);Intermittent asthma with reliever use up to twice per week without complication;Type 2 diabetes mellitus with hemoglobin A1c goal of less than 7.0% ([facility]);Spinal stenosis of lumbar region without neurogenic claudication;Obstructi ve sleep apnea;Lymphedema;Restr ictive lung disease;Acquired hypothyroidism;DDD (degenerative disc disease), lumbar Allergies Active Allergy Reactions Severity Noted Date [...] Inhaler 1 06/29/2016 Active Vitamin D, Ergocalciferol, 18661 UNITS CapsuleIndications: Vitamin D deficiency 1capsule every other week 8 Cap 6 09/27/2016 Active potassium chloride ER 10 MEQ TBCRIndications:Hyp okalemia Take 1 Tab by mouth 2 times a day. With food. 60 Tab 5 01/06/2017 Active Blood Glucose Monitoring Suppl (Skyhook WirelessUCH VERIO) W/DEVICE KITIndications:Type 2 diabetes mellitus with hemoglobin A1c goal of less than 7.0% (HCC) Use as directed. Use daily to check blood sugars DX:E11.9 1 Kit 0 01/17/2017 Active Glucose Blood (NotchTOUCH ULTRA BLUE) STRPIndications:Typ e 2 diabetes mellitus [...] day as directed 1 Box Dosing Unit 01/17/2017 Active Glucose Blood (ONETOUCH VERIO) STRP Use up to four times a day as directed.DX:E11 .9 100 Strip 01/19/2017 Active gabapentin (NEURONTIN) 300 MG CapsuleIndications: Cervical [...] bedtime 30 Each 3 10/11/2017 Active nystatin 713113 UNIT/GM creamIndications:Ca ndidal vulvovaginitis Apply topically to affected area 2 times a day. To affacted area for two weeks. 15 g 2 10/12/2017 Active Blood Glucose Monitoring Suppl (NotchTOUCH VERIO) w/Device KITIndications:Type 2 diabetes mellitus with [...] for Pain. 60 Tab 0 11/09/2017 Active Hydrocodone-Acetami nophen (NORCO) 10-325 MG per tabletIndications:S jennifer stenosis of lumbar region without neurogenic claudication,DDD (degenerative disc disease), lumbar,MEDICATION USE AGREEMENT Take 1 Tab by mouth 2 times a day as needed for Pain. 60 Tab 0 10/11/2017 11/10/19 18 Discontinued as of this encounter Active [...] [place]) 05/25/2012 01/17/2017 Overview: BMI= 55.27 05/25/12 Impacted [...] pain 01/24/2012 01/17/2017 Genetic Sleep Disorder Research Other*[id number] 05/13/2011 04/07/2016 Lumbosacral spondylosis 12/27/2010 05/25/20 12 [...] Vital Sign Reading Time Taken Blood Pressure 118/64 11/09/2017 10:46 AM EST Pulse 78 11/09/2017 10:46 AM EST Temperature 36.6 C (97.8 F) 11/09/2017 1 0:46 AM EST Respiratory Rate 18 11/09/2017 10:4 6 AM EST Oxygen Saturation - - Inhaled Oxygen Concentration - - Weight - - Height - - Body Mass Index - - in this encounter Progress Notes * Nancy Matute MD - 11/09/2017 11:42 AM EST Formatting of this note may be different from the original. S: Shaina Bustos is a 62 year old female. Chief Complaint Patient presents with HOSPITAL FOLLOW-UP HPI: Patient presents with caregiver for follow-up of to emergency room visits. Was seen in the emergency room a little over a week ago for misplacement/malfunction of her Cline catheter. This was adjusted in the emergency room with good function and benefit. Patient reports she has been trying to be more active and was standing on a step stool to get in [email or web address] vehicle and started to fall and twisted her left ankle. Other than landing on her twisted ankle, did not sustain any other injuries. No injuries or bruising to her backside, back, upper extremities, head. Patient was seen in the emergency room and was told that she did not have a fracture. Was not really given any other instructions. Has not been wrapping ankle or specific elevation. Hasnot used ice. Not instructed to use a brace. When caregiver is available, patient will try to do some walking with a walker and someone will fall behind her with a chair so she loses her balance or falls she will be sitting in the chair. No cold or flu symptoms. No chest pain or shortness of breath. No nausea or vomiting, no heartburn or indigestion. No abdominal pain. Eating drinking well. To stay does need refill today for narcotic pain medication. No other complaints or concerns. 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 60 Tab 0 albuterol (PROVENTIL HFA) 108 (90 BASE) MCG/ACT [...] 30 g 1 Blood Glucose Monitoring Suppl (iJento) W/DEVICE KIT Use as directed. Use daily to check blood sugars DX:E11.9 1 Kit 0 Blood Glucose Monitoring Suppl (iJento) w/Device KIT Use up to 4 times [...] timesa day. 1 Cap 0 Glucose Blood (Skyhook WirelessUCH ULTRA BLUE) STRP Use as directed 4 times a day as needed for Other (Use daily to check blood sugars DX:E11.9). Use up to four times a day as directed 100 Strip 11 Glucose Blood (Skyhook WirelessUCH VERIO) STRP Use up to four times a day as directed.DX:E11.9 100 Strip 11 insulin glargine (LANTUS SOLOSTAR) 100 UNIT/ML [...] over affected area. 1 Bottle 1 nystatin 513860 UNIT/GM cream Apply topically to affected area [...] bedtime 30 Tab 5 Vitamin D, Ergocalciferol, 54171 UNITS Capsule 1capsule every other week 8 [...] DIAGNOSTIC (RECTUM) 10/04/2016 normal bx, repeat 10 yrs/[facility] DENTAL SURGERY PROCEDURE NEC wisdom teeth x 4 DILATION AND CURETTAGE (D&C) EGD, FLEXIBLE, DIAGNOSTIC 10/04/2016 gastritis/[facility] PELVIS/HIP JOINT SURGERY NEC teenager aid in walking REPAIR/GRAFT ACHILLES TENDON age 40 aid in walking Review of patient's allergies indicates: Allergen Reactions Pcn [Penicillins] Rash Family History Problem Relation Age of Onset Heart Disorder Father of MD at age 61 Heart Disorder Mother of MD age 72 Diabetes Father Cancer None Arthritis [...] Alcohol use Yes Comment: rare Review of Systems: Skin: pt denies, rash, itching Eyes: negative Ears/Nose/Throat: pt denies:, frequent URI's Respiratory: pt denies:, cough and wheezing Cardiovascular: pt denies:, palpitations, tachycardia, irregular heart beat and chest pain Gastrointestinal: pt. denies:, abdominal pain, nausea, heartburn, diarrhea Genitourinary: As above Musculoskeletal: As above Neurologic: pt denies:, numbness or tingling of hands and numbness or tingling of feet Psychiatric: pt denies:, anxiety and depression Hematologic/Lymphatic/Immunologic: pt denies:, fever and chills Endocrine: pt denies:, cold intolerance and heat intolerance O: BP 118/64 | Pulse 78 | Temp (Src) 97.8 (Tympanic) | Resp 18 | Wt (0.000kg) Physical Exam: General appearance - large white female, alert, no distress Skin - Skin color, texture, turgor normal. Bilateral stasis dermatitis Head - Normocephalic., No masses, lesions, tenderness [...] hepatosplenomegaly Extremities - chronic bilateral lower extremity lymphedema. No pain with palpation the ankle joint.No pain with passive inversion or eversion, flexion or extension. A/P: S99.912A Injury of left ankle, initial encounter (primary encounter diagnosis) Protection, rest, ice, compression, elevation. Follow up with urology specialist as planned. Continue regular medications. Narcotic pain medication is refilled today. Continue regular medications. Patient has routine follow-up with me in 12 days. Will cancel that appointment and schedule follow-up in 3 months. Call with questions or problems. G80.9 Cerebral palsy, unspecified type ([facility]) J45.20 Intermittent asthma with reliever use up to twice per week without complication E11.9 Type 2 diabetes mellitus with hemoglobin a1c goal of less than 7.0% ([facility]) M48.061 Spinal stenosis of lumbar region without neurogenic claudication Plan: Hydrocodone-acetaminophen 10-325 mg po tabs Sig:Take 1 tab by mouth 2 times a day as needed for pain. G47.33 Obstructive sleep apnea I89.0 Lymphedema J98.4 Restrictive lung disease E03.9 Acquired hypothyroidism M51.36 Ddd (degenerative disc disease), lumbar Plan: Hydrocodone-acetaminophen 10-325 mg po tabs Sig:Take 1 tab by mouth 2 times a day as needed for pain. [id number] Medication use agreement Plan: Hydrocodone-acetaminophen 10-325 mg po tabs Sig:Take 1 tab by mouth 2 times a day as needed for pain. Follow up: Return in about 3 months (around 02/09/2018). I have reviewed the patients controlled substance dispensing history in the Prescription Drug Monitoring Program in compliance with the [place] regulations before prescribing a controlled substance. Nancy [...] this encounter Nursing Notes * Kiesha Schmitt, SHOP LABORER - 11/09/2017 10:42 AM EST Hospital discharge and ER follow up for ankle in this encounter Plan of Treatment Upcoming Encounters Date Type Specialty Care Team Description 11/14/2017 Office Visit Gynecology Obstetrics Sandra Meehan, CNM [address] [place] [address] [phone] 11/20/2017 Office Visit Gastroenterology Lyssa Stout CRNP [address] [facility] [place] [address] 11/28/2017 Office Visit Gastroenterology Gadiel Pahtak MD [address] [place] [address] 02/13/2018 Office Visit Family Practice Nancy Matute MD [address] [place] [address] 03/20/2018 Office Visit Dermatology Rachel Hill MD [address] [place] [address] [phone] 08/07/2018 Office Visit Sleep Disorders Lanette Fields CRNP [address] [facility] [place] [address] Gw, Nurse Sleep Disorders 132 [facility] [place] [address] Health Maintenance Due Date Last Done [...] fileas of this encounter Visit Diagnoses Diagnosis Injury of left ankle, initia l encounter - Primary Cerebral palsy, unspecified type (HCC) Intermittent asthma with rel iever use up to twice per week without complication Type 2 diabetes mellitus wit h hemoglobin A1c goal of less than 7.0% (HCC) Spinal stenosis of lumbar re gion without neurogenic claudication Spinal stenosis, lumbar region, without neurogenic claudication Obstructive sleep apnea Obstructive sleep apnea (adult) (pediatric) Lymphedema Other lymphedema Restrictive lung disease Other diseases of lung, not elsewhere classified Acquired hypothyroidism Unspecified hypothyroidism DDD (degenerative disc disea se), lumbar Degeneration of lumbar or lumbosacral intervertebral disc MEDICATION USE AGREEMENT in this encounter Insurance Payer Benefit Plan / Group Subscriber ID Type Phone Address [facility] [id number] [employer] [id number] [facility] [id number] as of this encounter"
--- OUTSIDE RECORDS SUMMARY | 2023-05-10 23:36 | External Medical Summary | Summary of Care ---
Author Name Unknown Organization [place] [address] Phone Care Team Providers Care Customer Business Manager Name Role Phone Nancy Matute MD Primary Care Provider [phone] Reason for Visit * Reason Comments ADVICE EMERGENCY DEPARTMENT FOLLOW-UP Encounter Details Date Type Department Care Team Description 11/08/2017 [address]phone [address] [place] [address] Nancy Matute MD [address] [place] [address] [phone] ADVICE; EMERGENCY DEPARTMENT FOLLOW-UP Allergies Active Allergy Reactions [...] Inhaler 1 06/29/2016 Active Vitamin D, Ergocalciferol, 04352 UNITS CapsuleIndications:Vi tamin D deficiency 1capsule every [...] less than 7.0% ([facility]) 10 units at bed time 5 Pre-filled Pen Syringe Dosing Unit 3 10/11/2017 Active Insulin Pen Needle 31G X 6 MM MISCIndications:Type 2 diabetes mellitus with hemoglobin A1c goal of less than 7.0% (HCC) Use with Lantus Solostar at bedtime 30 Each 3 10/11/2017 Active nystatin 524201 UNIT/GM creamIndications:Cand idal vulvovaginitis Apply topically to affected area 2 times a day. To affacted area for two weeks. 15 g 2 10/12/2017 Active Blood Glucose Monitoring Suppl (SpeechVive VERIO) w/Device KITIndications:Type 2 diabetes mellitus with hemoglobin A1c goal of less than 7.0% ([facility]) Use up to 4 times a [...] Cerebral palsy ([facility]) 01/24/2012 Obstructive sleep apnea 01/18/2011 Overview: [...] pain 01/24/2012 01/17/2017 Genetic Sleep Disorder Research Other*[id number] 05/13/2011 04/07/2016 Lumbosacral spondylosis 12/27/2010 05/25/20 12 [...] Telephone Encounter - Michaelle Lindquist LPN - 11/08/2017 1:15 PM EST Noted * Telephone Encounter - Melissa Fajardo, PARASITOLOGIST - 11/08/2017 12:47 PM EST Went to [facility] for a bruised ankle. Last evening Dxd with sprained L ankle ED did xrays of ankle and foot - no breakage Needs a FU per ED Sched gala with Dr Matute * Telephone Encounter - Tamara Kim, THAD - 11/08/2017 12:45 PM EST Reason for patient's call: ER Fup/ankle bruise Caller was transferred to [place] at the dedicated phone nurse line. in this encounter Plan of Treatment Upcoming Encounters Date Type Specialty Care Team Description 11/14/2017 Office Visit Gynecology Obstetrics Sandra Meehan CNM [address] [place] [address] [phone] 11/20/2017 Office Visit Gastroenterology Lyssa Stout CRNP [address] [place] [address] [phone] 11/28/2017 Office Visit Gastroenterology Gadiel Pathak MD [address] [place] [address] 02/13/2018 Office Visit Family Practice Nancy Matute MD [address] [place] [address] [phone] 03/20/2018 Office Visit Dermatology Rachel Hill MD [address] [place] [address] [phone] 08/07/2018 Office Visit Sleep Disorders Lanette Fields CRNP [address] [place] [address] [phone] Nurse [facility] Sleep Disorders [address] [place] [address] [phone] Health Maintenance Due Date Last Done Comments [...] Type Phone Address [facility] [id number] [employer] [id number] [facility] [id number] as of this encounter
--- OUTSIDE RECORDS SUMMARY | 2023-05-10 23:36 | External Medical Summary | Summary of Care ---
Author Name Unknown Organization [place] [address] Phone Care Team Providers Care Hat Conditioner Name Role Phone Nancy Matute MD Primary Care Provider Reason for Visit * Reason Comments FORMS REQUEST HOME Health Care Encounter Details Date Type Department Care Team Description 11/17/2017 Telephone [address] [place] [address] Nancy Matute MD [address] [place] [address] [phone] FORMS REQUEST (HOME Health Care) Allergies Active [...] Inhaler 1 06/29/2016 Active Vitamin D, Ergocalciferol, 08556 UNITS CapsuleIndications:Vi tamin D deficiency 1capsule every [...] of less than 7.0% ([facility]) 10 units at bed time 5 Pre-filled Pen Syringe Dosing Unit 3 10/11/2017 Active Insulin Pen Needle 31G X 6 MM MISCIndications:Type 2 diabetes mellitus with hemoglobin A1c goal of less than 7.0% ([facility]) Use with Lantus Solostar at bedtime 30 Each 3 10/11/2017 Active nystatin 979104 UNIT/GM creamIndications:Cand idal vulvovaginitis Apply topically to affected area 2 times a day. To affacted area for two weeks. 15 g 2 10/12/2017 Active Blood Glucose Monitoring Suppl (Picostorm [employer] Labs VERIO) w/Device KITIndications:Type 2 diabetes mellitus with hemoglobin A1c goal of less than 7.0% ([facility]) Use up to 4 times a [...] 50.0 to 59.9 in adult ([facility]) 06/12/2017 Overview: Per Obesity protocol #1 [...] 03/27/2012 Cerebral palsy ([facility]) 01/24/2012 Obstructive sleep apnea 01/18/2011 Overview: [...] pain 08/19/2016 01/17/2017 Hepatic cirrhosis ([facility]) 08/19/2016 03/28/20 [...] BMI > 40) ([facility]) 02/09/2015 03/28/2017 THAD (obstructive sleep apnea) [...] pain 01/24/2012 01/17/2017 Genetic Sleep Disorder Research Other*[id number] 05/13/2011 04/07/2016 Lumbosacral spondylosis 12/27/2010 05/25/20 12 [...] signature. * Telephone Encounter - Dulce Call THAD - 11/17/2017 1:03 PM EST Plan of Care , form in ALEJANDRA lauren in this encounter Plan of Treatment Upcoming Encounters Date Type Specialty Care Team Description 11/20/2017 Office Visit Gastroenterology Lyssa Stout CRNP [address] [address] [phone] 11/21/2017 Office Visit Gynecology Obstetrics Rosaura Perez, CN [address] [place] [address] [phone] 11/22/2017 Office Visit Family Practice Nancy Matute MD [address] [place] [address] [phone] 11/28/2017 Office Visit Gastroenterology Gadiel Pathak MD [address] [place], [place] [address] 02/13/2018 Office Visit Family Practice Nancy Matute MD [address] [place] [address] [phone] 03/20/2018 Office Visit Dermatology Rachel Hill MD [address] [place] [address] [phone] 08/07/2018 Office Visit Sleep Disorders Lanette Fields CRNP [address] [address] [phone] [facility] Nurse Sleep Disorders [address] [place] [address] [phone] Health Maintenance Due Date Last Done Comments [...] Group Subscriber ID Type Phone Address [facility] [id number] [employer] [id number] [facility] [id number] as of this encounter
--- OUTSIDE RECORDS SUMMARY | 2023-05-10 23:36 | External Medical Summary | Summary of Care ---
Author Name Unknown [place] [address] Phone Care Team Providers Care Metal Checker Name Role Phone Nancy Matute MD Primary Care Provider Encounter Details Date Type Department Care Team Description 11/07/2017 Scan Encounter Unspecified Department <No scans attached> [...] Inhaler 1 06/29/2016 Active Vitamin D, Ergocalciferol, 99287 UNITS CapsuleIndications:Vi tamin D deficiency 1capsule every [...] less than 7.0% ([facility]) 10 units at bed time 5 Pre-filled Pen Syringe Dosing Unit 3 10/11/2017 Active Insulin Pen Needle 31G X 6 MM MISCIndications:Type 2 diabetes mellitus with hemoglobin A1c goal of less than 7.0% ([facility]) Use with Lantus Solostar at bedtime 30 Each 3 10/11/2017 Active nystatin 554182 UNIT/GM creamIndications:Cand idal vulvovaginitis Apply topically to affected area 2 times a day. To affacted area for two weeks. 15 g 2 10/12/2017 Active Blood Glucose Monitoring Suppl (KidAdmit VERIO) w/Device KITIndications:Type 2 diabetes mellitus with [...] (BMI) of 50.0 to 59.9 in adult ([facility]) 06/12/2017 Overview: Per Obesity protocol #1 Chronic [...] pain 01/24/2012 01/17/2017 Genetic Sleep Disorder Research Other*[id number] 05/13/2011 04/07/2016 Lumbosacral spondylosis 12/27/2010 05/25/20 12 [...] Visit Gynecology Obstetrics Franca Carlin, ZAK [address] [place] [address] [phone] 11/20/2017 Office Visit Gastroenterology Lyssa Stout CRNP [address] [place] [address] [phone] 11/21/2017 Office Visit Family Practice Nancy Matute MD [address] [place], [place] [address] 11/28/2017 Office Visit Gastroenterology Gadiel Pathak MD [address] [place] [address] 03/20/2018 Office Visit Dermatology Rachel Hill MD [address] [facility] [place] [address] [phone] 08/07/2018 Office Visit Sleep Disorders Lanette Fields CRNP [address] [place] [address] [phone] Nurse [facility] Sleep Disorders [address] [facility] [place] [address] [phone] Health Maintenance Due Date Last Done Comments [...] Subscriber ID Type Phone Address [facility] [id number] [employer] [facility] [id number] [facility] [id number] as of this encounter
--- OUTSIDE RECORDS SUMMARY | 2023-05-10 23:36 | External Medical Summary | Summary of Care ---
Author Name Unknown Organization [place] [address] Phone Care Team Providers Care Business Objects Architect Name Role Phone Nancy Matute MD Primary Care Provider [phone] Reason for Visit * Reason Comments ADVICE Encounter Details Date Type Department Care Team Description 11/07/2017 Telephone [address] [place] [address] Nancy Matute MD [address] [place] [address] [phone] ADVICE Allergies Active Allergy Reactions Severity Noted [...] Inhaler 1 06/29/2016 Active Vitamin D, Ergocalciferol, 17339 UNITS CapsuleIndications:Vi tamin D deficiency 1capsule every other week 8 Cap 6 09/27/2016 Active potassium chloride ER 10 MEQ TBCRIndications:Hypok alemia Take 1 Tab by mouth 2 times a day. With food. 60 Tab 5 01/06/2017 Active Blood Glucose Monitoring Suppl ([employer] [place] VERIO) W/DEVICE KITIndications:Type 2 diabetes mellitus with hemoglobin A1c goal of less than 7.0% (HCC) Use as directed. Use daily to check blood sugars DX:E11.9 1 Kit 0 01/17/2017 Active Glucose Blood (HID GlobalTOUCH ULTRA BLUE) STRPIndications:Type 2 diabetes mellitus [...] bedtime 30 Each 3 10/11/2017 Active nystatin 323310 UNIT/GM creamIndications:Cand idal vulvovaginitis Apply topically to [...] pain 01/24/2012 01/17/2017 Genetic Sleep Disorder Research Other*[id number] 05/13/2011 04/07/2016 Lumbosacral spondylosis 12/27/2010 05/25/20 12 [...] Miscellaneous Notes * Telephone Encounter - Melissa FajardoDEVAN - 11/07/2017 1:38 PM EST Pt called she can not get into her car. She can not put weight at all on her ankle. I called 911 toget her and take her to the ED pt in agreement * Telephone Encounter - Janett PetitDEVAN - 11/07/2017 12:22 PM EST Spoke to pt and she fell back wards today onto her leg and ankle. Pt can apply pressure to the leg but has pain. Asked if she feels she needs to go tot he ER and she said "No". Her wanted herto reschedule the appt. I explained it would be best to keep the appt to be evaluated. Pt voiced understanding and will try her best to keep the appt. * Telephone Encounter - Jomar Carlee Ashton, THAD - 11/07/2017 12:18 PM EST Reason for patient's call: Pt stating she slipped and fell and hurt her ankle and can barely walk and is asking to reschedule her ER f/u that was scheduled for today 11/07. Caller was transferred to [place] at the dedicated phone nurse line. in this encounter Plan of Treatment Upcoming Encounters Date Type Specialty Care Team Description 11/08/2017 [facility] [address] [facility] [address] [phone] 11/16/2017 Office Visit [facility]ne[facility]stetric[facility] [facility] [address] [facility] [place] [address] [phone] 11/21/2017 Office Visit Family Practice Nancy Matute MD [address] [place], [place] [address] 11/28/2017 Office Visit Gastroenterology Gadiel Pathak MD [address] [place] [address] 03/20/2018 Office Visit Dermatology Rachel Hill MD [address] [facility] [place] [address] [phone] 08/07/2018 Office Visit Sleep Disorders Lanette Fields CRNP [address] [place] [address] [phone] Nurse [facility] [address] [place] [address] [phone] Health Maintenance Due Date Last Done Comments [...] Type Phone Address [facility] [id number] [employer] [id number] [facility] [id number] as of this encounter
--- OUTSIDE RECORDS SUMMARY | 2023-05-10 23:37 | External Medical Summary | Summary of Care ---
Author Name Unknown Organization [place] [address] Phone Care Team Providers Care Traveling Buyer Name Role Phone Nancy Matute MD Primary Care Provider Encounter Details Date Type Department Care Team Description 11/01/2017 Scan Encounter Unspecified Department <No scans attached> [...] Inhaler 1 06/29/2016 Active Vitamin D, Ergocalciferol, 10109 UNITS CapsuleIndications:Vi tamin D deficiency 1capsule every [...] ([facility]) 10 units at bed time 5 Pre-filled Pen Syringe Dosing Unit 3 10/11/2017 Active Insulin Pen Needle 31G X 6 MM MISCIndications:Type 2 diabetes mellitus with hemoglobin A1c goal of less than 7.0% ([facility]) Use with Lantus Solostar at bedtime 30 Each 3 10/11/2017 Active nystatin 578657 UNIT/GM creamIndications:Cand idal vulvovaginitis Apply topically to affected area 2 times a day. To affacted area for two weeks. 15 g 2 10/12/2017 Active Blood Glucose Monitoring Suppl ([employer] VERIO) w/Device KITIndications:Type 2 diabetes mellitus with hemoglobin A1c goal of less than 7.0% ([facility]) Use up to 4 times a day E11.9 1 Kit 0 10/17/2017 Active as of this encounter Active Problems Problem Noted Date Bladder tumor 10/11/2017 Chronic indwelling Cline catheter 2017 Recurrent UTI 10/11/2017 Preoperative cardiovascular examination 10/11/2017 History of Clostridium difficile colitis 08/29/2017 Debility 07/19/2017 Body mass index (BMI) of 50.0 to 59.9 in adult ([facility]) 06/12/2017 Overview: Per Obesity protocol #1 Chronic [...] chest pain 08/19/2016 01/17/2017 Hepatic cirrhosis ([facility]) 08/19/2016 03/28/20 17 Polyuria 08/09/2016 01/17/2017 Urinary [...] pain 01/24/2012 01/17/2017 Genetic Sleep Disorder Research Other*[id number] 05/13/2011 04/07/2016 Lumbosacral spondylosis 12/27/2010 05/25/20 12 Dyslipidemia, goal LDL below 130 06/01/2010 03/28/2012 Asthma with severity to be determined 03/04/2010 11/01/2011 Overview: Per Asthma Taxonomy ICD-10 update of inactive term Asthma in remission 03/04/2010 01/09/2013 Overview: Per Provider Protocol. Obesity, morbid (more than 1 00 lbs over ideal weight or BMI > 40) ([facility]) 12/08/2009 07/02/2014 Overview: Per Obesity Taxonomy ICD-10 [...] Encounters Date Type Specialty Care Team Description 11/07/2017 Office Visit Family Practice Nancy Matute MD [address] [place] [address] [phone] 11/08/2017 Office Visit Gastroenterology Lyssa Stout CRNP [address] [place] [address] [phone] 11/16/2017 Office Visit Gynecology Obstetrics Franca Carlin CRNP [address] [place] [address] [phone] 11/21/2017 Office Visit Family Practice Nancy Matute MD [address] [place] [address] [phone] 11/28/2017 Office Visit Gastroenterology Gadiel Pathak MD [address] [place], [place] [address] 03/20/2018 Office Visit Dermatology Rachel Hill MD [address] [place] [address] [phone] 08/07/2018 Office Visit Sleep Disorders Lanette Fields CRNP [address] [place] [address] [phone] Nurse Kentrell [facility] [address] [place] [address] [phone] Health Maintenance Due Date Last Done Comments [...] [facility] [id number] [employer] [id number] [facility] [id number] as of this encounter
--- OUTSIDE RECORDS SUMMARY | 2023-05-10 23:37 | External Medical Summary | Summary of Care ---
Author Name Unknown Organization [place] [address] Phone Care Team Providers Care Baker Doughnut Name Role Phone Nancy Matute MD Primary Care Provider [phone] Reason for Visit * Reason Comments FORMS REQUEST [facility] Encounter Details Date Type Department Care Team Description 11/01/2017 Telephone [id number] [place] [address] Nancy Matute MD [address] [place] [address] [phone] FORMS REQUEST ([facility]) Allergies Active Allergy Reactions Severity Noted Date [...] Inhaler 1 06/29/2016 Active Vitamin D, Ergocalciferol, 69106 UNITS CapsuleIndications:Vi tamin D deficiency 1capsule every [...] bedtime 30 Each 3 10/11/2017 Active nystatin 195324 UNIT/GM creamIndications:Cand idal vulvovaginitis Apply topically to [...] palsy ([facility]) 01/24/2012 Obstructive sleep apnea 01/18/2011 Overview: [...] pain 01/24/2012 01/17/2017 Genetic Sleep Disorder Research Other*[id number] 05/13/2011 04/07/2016 Lumbosacral spondylosis 12/27/2010 05/25/20 12 [...] Telephone Encounter - Karyn Ta OSA - 11/06/2017 2:21 PM EST Form faxed * Telephone Encounter - Nancy Matute MD - 11/06/2017 12:35 PM EST Signed. Nancy Matute MD * Telephone Encounter - Ludy Jara LPN - 11/01/2017 1:51 PM EST On your desk * Telephone Encounter - Dulce Call OSA - 11/01/2017 1:11 PM EST PT Function Assessment- Placed in Giovani lauren in this encounter Plan of Treatment Upcoming Encounters Date Type Specialty Care Team Description 11/07/2017 Office Visit Family [facility] Nancy Matute MD [address] [place] [address] [phone] 11/08/2017 Office Visit Gastroenterology Lyssa Stout CRNP [address] [place] [address] [phone] 11/16/2017 Office Visit Gynecology Obstetrics Franca Carlin CRNP [address] [place] [address] [phone] 11/21/2017 Office Visit Family Practice Nancy Matute MD [address] [place] [address] [phone] 11/28/2017 Office Visit Gastroenterology Gadiel Pathak MD [address] [place] [address] 03/20/2018 Office Visit Dermatology Rachel Hill MD [address] [place] [address] [phone] 08/07/2018 Office Visit Sleep Disorders Lanette Fields CRNP [address] [place] [address] [phone] Nurse Kentrell Sleep Disorders [address] [place] [address] [phone] Health Maintenance Due Date Last Done Comments [...] Phone Address [facility] [id number] [employer] [id number] [facility] [id number] as of this encounter
--- OUTSIDE RECORDS SUMMARY | 2023-05-10 23:37 | External Medical Summary | Summary of Care ---
Author Name Unknown Organization [place] [address] Phone Care Team Providers Care Pot Fireman Name Role Phone Nancy Matute MD Primary Care Provider [phone] Reason for Visit * Reason Comments EMERGENCY DEPARTMENT FOLLOW-UP [facility] for dehydration Encounter Details Date Type Department Care Team Description 11/02/2017 Telephone [facility] [address] [place] [address] Nancy Matute MD [address] [place] [address] [phone] EMERGENCY DEPARTMENT FOLLOW-UP ([facility] 2/... Allergies Active Allergy Reactions Severity Noted Date [...] Inhaler 1 06/29/2016 Active Vitamin D, Ergocalciferol, 54433 UNITS CapsuleIndications:Vi tamin D deficiency 1capsule every other week 8 Cap 6 09/27/2016 Active potassium chloride ER 10 MEQ TBCRIndications:Hypok alemia Take 1 Tab by mouth 2 times a day. With food. 60 Tab 5 01/06/2017 Active Blood Glucose Monitoring Suppl (Functional NeuromodulationTOUCH VERIO) W/DEVICE KITIndications:Type 2 diabetes mellitus with hemoglobin A1c goal of less than 7.0% (HCC) Use as directed. Use daily to check blood sugars DX:E11.9 1 Kit 0 01/17/2017 Active Glucose Blood (Functional NeuromodulationTOUCH ULTRA BLUE) STRPIndications:Type 2 diabetes mellitus with hemoglobin A1c goal of less than 7.0% (HCC) Use as directed 4 times a day as needed for Other (Use daily to check blood sugars DX:E11.9). Use up to four times a day as directed 100 Strip 11 01/17/2017 Active Functional NeuromodulationTOUCH ULTRASOFT LANCETS MISCIndications:Type 2 diabetes mellitus with [...] 7.0% ([facility]) 10 units at bed time 5 Pre-filled Pen Syringe Dosing Unit 3 10/11/2017 Active Insulin Pen Needle 31G X 6 MM MISCIndications:Type 2 diabetes mellitus with hemoglobin A1c goal of less than 7.0% ([facility]) Use with Lantus Solostar at bedtime 30 Each 3 10/11/2017 Active nystatin 135567 UNIT/GM creamIndications:Cand idal vulvovaginitis Apply topically to affected area 2 times a day. To affacted area for two weeks. 15 g 2 10/12/2017 Active Blood Glucose Monitoring Suppl (ONETOUCH VERIO) w/Device KITIndications:Type 2 diabetes mellitus with hemoglobin A1c goal of less than 7.0% ([facility]) Use up to 4 times a day [...] 7.0% ([facility]) 09/26/2013 Overview: ICD-10 update of inactive term Vitamin D deficiency 09/26/2013 Lymphedema 03/11/2013 Intermittent asthma with reliever use up to twice per week 01/09/2013 Stasis dermatitis 05/07/2012 NG (nonalcoholic steatohepatitis) 04/12 Diverticulosis of colon 05/02/2012 HTN, goal below 140/90 03/27/2012 Chronic rhinitis 03/27/2012 Cerebral palsy ([facility]) 01/24/2012 Obstructive sleep apnea 01/18/2011 Overview: 08/18/11 [...] Hepatic cirrhosis ([facility]) 08/19/2016 03/28/20 17 Polyuria 08/09/2016 01/17/2017 Urinary frequency 08/09/2016 01/17/2017 Generalized OA 06/14/2016 03/28/2017 Body mass index (BMI) of 45.0-49.9 in adult ([facility] ) 12/09/2015 01/17/2017 Overview: bmi= 48.04 12/09/15 Need for shingles vaccine 12/09/20152015 Bilateral shoulder pain 08/25/2015 06/07/20 16 Bilateral shoulder pain 07/16/2015 06/07/20 16 Cerebral palsy ([facility]) 04/23/2015 03/28/2017 Candidal vulvovaginitis 02/12/2015 06/07/20 16 Obesity, morbid (more than 1 00 lbs over ideal weight or BMI > 40) ([facility]) 02/09/2015 03/28/2017 THAD (obstructive sleep apnea) [...] 40) ([facility]) 10/28/2013 01/17/2017 Overview: bmi= 53.93 10/28/13 [...] 40) ([facility]) 05/25/2012 01/17/2017 Overview: BMI= 55.27 05/25/12 [...] pain 01/24/2012 01/17/2017 Genetic Sleep Disorder Research Other*[id number] 05/13/2011 04/07/2016 Lumbosacral spondylosis 12/27/2010 05/25/20 12 Dyslipidemia, goal LDL below 130 06/01/2010 03/28/2012 Asthma with severity to be determined 03/04/2010 11/01/2011 Overview: Per Asthma Taxonomy ICD-10 update of inactive term Asthma in remission 03/04/2010 01/09/2013 Overview: Per Provider Protocol. Obesity, morbid (more than 1 00 lbs over ideal weight or BMI > 40) ([facility]) 12/08/2009 07/02/2014 Overview: Per Obesity Taxonomy [...] Telephone Encounter - Susan Rosales RN - 11/02/2017 11:10 AM EST ok * Telephone Encounter - Janett Petit LPN - 11/02/2017 11:00 AM EST Pt calling and she went to [facility] 11/01/17 for catheter discomfort and they did blood work and found pt to be dehydrated. No issues found with catheter. Pt has been drinking lots of water but also drinking pepsi zero. Advised pt to get some gatorade or power aid to help replenish her electrolytes. Pt voiced understanding and would like to be seen next week. appt made for 11/07/17 with . * Telephone Encounter - Lidia Betancourt OSA - 11/02/2017 10:45 AM EST Reason for patient's call: ER follow up Caller was transferred to Tonya at the dedicated phone nurse line. in this encounter Plan of Treatment Upcoming Encounters Date Type Specialty Care Team Description 11/07/2017 Office Visit Family Practice Nancy Matute MD [address] [place] [address] 11/08/2017 Office Visit Gastroenterology Lyssa Stout CRNP [address] [place] [address] [phone] 11/16/2017 Office Visit Gynecology Obstetrics Franca Carlin CRNP [address] [facility] [place] [address] 11/21/2017 Office Visit Family Practice Nancy Matute MD [address] [place], [place] [address] 11/28/2017 Office Visit Gastroenterology Gadiel Pathak MD [address] [place] [address] [phone] 03/20/2018 Office Visit Dermatology Rachel Hill MD [address] [place], [place] [address] [address] [phone] 08/07/2018 Office Visit Sleep Disorders Lanette Fields CRNP [address] [place] [address] [phone] Kentrell Nurse Sleep Disorders [address] [place] [address] [phone] Health Maintenance Due Date Last Done Comments Yearly B-12 1955 DIABETES-EYE EXAM 1973 DTaP,Tdap,and Td Vaccines (3 - Td) 11/01/2017 05/01/2017, 05/26/2008 BREAST CANCER SCREENING DISCUSSION YEARLY AGES 40-75 01/18/2018 01/18/2017, 01/17/2017 (Discussed), 12/22/2015, Additional history exists DIABETES-FOOT EXAM 03/22/2018 03/22/2017, 0 06/07/2016, 08/25/2015, Additional history exists DIABETES-HGBA1C EVERY 6 MONTHS 04/10/2018 10/11/2017, 03/28/2017, 02/01/2017, Additional history exists DIABETES-LDL EVERY 12 MONTHS 10/11/2018 10/11/2017, 02/01/2017, 05/05/2016, Additional history exists DIABETES-URINE MICROALBUMIN EVERY 12 MONTHS 10/18/2018 10/18/2017, 02/03/2017, 08/25/2015, Additional history exists PAP SMEAR-EVERY 3 YRS,AGES 21-65 10/10/2019 10/10/2016, 07/02/2014, 04/16/2013, Additional history exists PNEUMOCOCCAL 19-64 MEDIUM RISK Completed 06/01/2010 *ASTHMA ACTION PLAN-ADULT YEARLY Addressed 06/07/2016 (Discussed), 12/09/2014 Overridden with the intention of not completing the topic Influenza Vaccine (FLU shot) Completed 07/10/2017, 06/07/2016, 05/22/2015, Additional history exists as of this encounter Implants Not on fileas of this encounter Insurance Payer Benefit Plan / Group Subscriber ID Type Phone Address [employer]UE [employer] [id number] [employer] [id number] [facility] [id number] as of this encounter
--- OUTSIDE RECORDS SUMMARY | 2023-05-10 23:37 | External Medical Summary | Summary of Care ---
Author [place] [address] Phone Care Team Providers Care Green End Department Supervisor Name Role Phone Nancy Matute MD Primary Care Provider [phone] Encounter Details Date Type Department Care Team Description 10/26/2017 Scan Encounter Sleep Disorders, [address] [address] Vielka Sandoval MD [address] [facility] [address] [place] [address] <No scans attached> Allergies Active [...] Inhaler 1 06/29/2016 Active Vitamin D, Ergocalciferol, 54810 UNITS CapsuleIndications:Vi tamin D deficiency 1capsule every other week 8 Cap 6 09/27/2016 Active potassium chloride ER 10 MEQ TBCRIndications:Hypok alemia Take 1 Tab by mouth 2 times a day. With food. 60 Tab 5 01/06/2017 Active Blood Glucose Monitoring Suppl ([employer] VERIO) W/DEVICE KITIndications:Type 2 diabetes mellitus with hemoglobin A1c goal of less than 7.0% (HCC) Use as directed. Use daily to check blood sugars DX:E11.9 1 Kit 0 01/17/2017 Active Glucose Blood ([employer]UCH ULTRA BLUE) STRPIndications:Type 2 diabetes mellitus with hemoglobin A1c goal of less than 7.0% (HCC) Use as directed 4 times a day as needed for Other (Use daily to check blood sugars DX:E11.9). Use up to four times a day as directed 100 Strip 11 01/17/2017 Active Simplex HealthcareTOUCH ULTRASOFT LANCETS MISCIndications:Type 2 diabetes mellitus [...] bedtime 30 Each 3 10/11/2017 Active nystatin 034889 UNIT/GM creamIndications:Cand idal vulvovaginitis Apply topically to affected area 2 times a day. To affacted area for two weeks. 15 g 2 10/12/2017 Active Blood Glucose Monitoring Suppl (Simplex HealthcareTOUCH VERIO) w/Device KITIndications:Type 2 diabetes mellitus with [...] Atypical chest pain 08/19/2016 01/17/2017 Hepatic cirrhosis ([facility]) 08/19/2016 03/28/20 17 Polyuria 08/09/2016 01/17/2017 Urinary frequency 08/09/2016 01/17/2017 Generalized OA 06/14/2016 03/28/2017 Body mass index (BMI) of 45.0-49.9 in adult ([facility] ) 12/09/2015 01/17/2017 Overview: bmi= 48.04 12/09/15 Need for shingles vaccine 12/09/20152015 Bilateral shoulder pain 08/25/2015 06/07/20 16 Bilateral shoulder pain 07/16/2015 06/07/20 16 Cerebral palsy ([facility]) 04/23/2015 03/28/2017 Candidal vulvovaginitis 02/12/2015 06/07/20 [...] pain 01/24/2012 01/17/2017 Genetic Sleep Disorder Research Other*[id number] 05/13/2011 04/07/2016 Lumbosacral spondylosis 12/27/2010 05/25/20 12 [...] Encounters Date Type Specialty Care Team Description 11/02/2017 Office Visit Gynecology Obstetrics Renetta Martinez MD [address] [place] [address] [phone] 11/08/2017 Office Visit Gastroenterology Lyssa Stout CRNP [address] [place] [address] [phone] 11/21/2017 Office Visit Family Practice Nancy Matute MD [address] [place] [address] [phone] 11/28/2017 Office Visit Gastroenterology Gadiel Pathak MD [address] [place] [address] 03/20/2018 Office Visit Dermatology Rachel Hill MD [address] [place] [address] [phone] 08/07/2018 Office Visit Sleep Disorders Lanette Fields CRNP [address] [place] [address] [phone] Kentrell, Nurse Sleep Disorders [address] [place] [address] [phone] Health Maintenance Due Date Last Done Comments [...] Subscriber ID Type Phone Address BLUE SHIELD [facility] BLUE [facility] [id number] AETNA A[facility]NA [facility] [id number] [facility] [id number] as of this encounter
--- OUTSIDE RECORDS SUMMARY | 2023-05-10 23:37 | External Medical Summary | Summary of Care ---
Author Name Unknown Organization [place] [address] Phone Care Team Providers Care Inspector And Sorter Name Role Phone Nancy Matute MD Primary Care Provider Encounter Details Date Type Department Care Team Description 10/30/2017 Result Scan Unspecified Department <No scans attached> [...] Inhaler 1 06/29/2016 Active Vitamin D, Ergocalciferol, 86981 UNITS CapsuleIndications:Vi tamin D deficiency 1capsule every [...] less than 7.0% ([facility]) 10 units at bed time 5 Pre-filled Pen Syringe Dosing Unit 3 10/11/2017 Active Insulin Pen Needle 31G X 6 MM MISCIndications:Type 2 diabetes mellitus with hemoglobin A1c goal of less than 7.0% ([facility]) Use with Lantus Solostar at bedtime 30 Each 3 10/11/2017 Active nystatin 632072 UNIT/GM creamIndications:Cand idal vulvovaginitis Apply topically to affected area 2 times a day. To affacted area for two weeks. 15 g 2 10/12/2017 Active Blood Glucose Monitoring Suppl ([employer] VERIO) w/Device KITIndications:Type 2 diabetes mellitus with [...] (BMI) of 50.0 to 59.9 in adult ([facility]) 06/12/2017 Overview: Per Obesity protocol #1 [...] Atypical chest pain 08/19/2016 01/17/2017 Hepatic cirrhosis ([facility]) 08/19/2016 [...] pain 01/24/2012 01/17/2017 Genetic Sleep Disorder Research Other*[id number] 05/13/2011 04/07/2016 Lumbosacral spondylosis 12/27/2010 05/25/20 12 [...] Visit Gynecology Obstetrics Renetta Martinez MD [address] [place] [address] [phone] 11/08/2017 Office Visit Gastroenterology Lyssa Stout CRNP [address] [place] [address] [phone] 11/21/2017 Office Visit Family Practice Nancy Matute MD [address] [place], [place] [address] 11/28/2017 Office Visit Gastroenterology Gadiel Pathak MD [address] [facility] [place] [address] 03/20/2018 Office Visit Dermatology Rachel Hill MD [address] [place] [address] [phone] 08/07/2018 Office Visit Sleep Disorders Lanette Fields CRNP [address] [place] [address] [phone] Nurse Kentrell Sleep Disorders [address] [place] [address] [phone] Health Maintenance Due Date Last Done Comments [...] this encounter Results * RADIOLOGY SCANNED RESULT (10/30/2017) in this encounter Insurance Payer Benefit Plan / Group Subscriber ID Type Phone Address BLUE [facility] [id number] [employer] [id number] BLUE [facility] [id number] as of this encounter
--- OUTSIDE RECORDS SUMMARY | 2023-05-10 23:37 | External Medical Summary | Summary of Care ---
Author Name Unknown Organization [place] [address] Phone Care Team Providers Care Clinical Operations Consultant Name Role Phone Nancy Matute MD Primary Care Provider Encounter Details Date Type Department Care Team Description 11/02/2017 Orders Only [place] [place] [address] Nancy Matute MD [address] [place] [address] [phone] Allergies Active Allergy Reactions Severity Noted Date [...] Inhaler 1 06/29/2016 Active Vitamin D, Ergocalciferol, 04001 UNITS CapsuleIndications:Vi tamin D deficiency 1capsule every other week 8 Cap 6 09/27/2016 Active potassium chloride ER 10 MEQ TBCRIndications:Hypok alemia Take 1 Tab by mouth 2 times a day. With food. 60 Tab 5 01/06/2017 Active Blood Glucose Monitoring Suppl (myDocketTOUCH VERIO) W/DEVICE KITIndications:Type 2 diabetes mellitus with hemoglobin A1c goal of less than 7.0% (HCC) Use as directed. Use daily to check blood sugars DX:E11.9 1 Kit 0 01/17/2017 Active Glucose Blood (myDocketTOUCH ULTRA BLUE) STRPIndications:Type 2 diabetes mellitus with [...] Dosing Unit 11 01/17/2017 Active Glucose Blood (myDocketTOUCH VERIO) STRP Use up to four times [...] bedtime 30 Each 3 10/11/2017 Active nystatin 516410 UNIT/GM creamIndications:Cand idal vulvovaginitis Apply topically to affected area 2 times a day. To affacted area for two weeks. 15 g 2 10/12/2017 Active Blood Glucose Monitoring Suppl (myDocketTOUCH VERIO) w/Device KITIndications:Type 2 diabetes mellitus with [...] 03/27/2012 Cerebral palsy ([facility]) 01/24/2012 Obstructive sleep apnea 01/18/2011 Overview: [...] > 40) ([facility]) 02/09/2015 03/28/2017 TAHD (obstructive sleep apnea) 02/09/2015 [...] pain 01/24/2012 01/17/2017 Genetic Sleep Disorder Research Other*[id number] 05/13/2011 04/07/2016 Lumbosacral spondylosis 12/27/2010 05/25/20 12 [...] Visit Gynecology Obstetrics Renetta Martinez MD [address] [facility] [place] [address] [phone] 11/08/2017 Office Visit Gastroenterology Lyssa Sotut CRNP 132 [facility] [place] [address] [phone] 11/21/2017 Office Visit Family Practice Nancy Matute MD [address] [place], [place] [address] 11/28/2017 Office Visit Gastroenterology Gadiel Pathak MD [address] [place] [address] 03/20/2018 Office Visit Dermatology Rachel Hill MD [address] [place] [address] [phone] 08/07/2018 Office Visit Sleep Disorders Lanette Fields CRNP [address] [facility] [place] [address] [phone] Nurse Kentrell Sleep Disorders [address] [place] [address] [phone] Pending Results Name Priority Associated Diagnoses Date/Ti me XR CHEST 1 VIEW Routine 11/01/2017 1 2:00 AM EST Health Maintenance Due Date Last [...] / Group Subscriber ID Type Phone Address [facility] [id number] [employer] [id number] [facility] [id number] as of this encounter
--- OUTSIDE RECORDS SUMMARY | 2023-05-10 23:37 | External Medical Summary | Summary of Care ---
Author Name Unknown Organization [place] [address] Phone Care Team Providers Care Softball Umpire Name Role Phone Nancy Matute MD Primary Care Provider [phone] Encounter Details Date Type Department Care Team Description 11/03/2017 Orders Only [place] [address] [place] [address] Nancy Matute MD [address] [place] [address] [phone] Allergies Active Allergy Reactions Severity Noted Date [...] Inhaler 1 06/29/2016 Active Vitamin D, Ergocalciferol, 08461 UNITS CapsuleIndications:Vi tamin D deficiency 1capsule every other week 8 Cap 6 09/27/2016 Active potassium chloride ER 10 MEQ TBCRIndications:Hypok alemia Take 1 Tab by mouth 2 times a day. With food. 60 Tab 5 01/06/2017 Active Blood Glucose Monitoring Suppl ([employer] [employer] VERIO) W/DEVICE KITIndications:Type 2 diabetes mellitus with hemoglobin A1c goal of less than 7.0% (HCC) Use as directed. Use daily to check blood sugars DX:E11.9 1 Kit 0 01/17/2017 Active Glucose Blood ([employer] [employer] ULTRA BLUE) STRPIndications:Type 2 diabetes mellitus with [...] Dosing Unit 11 01/17/2017 Active Glucose Blood ([employer] VERIO) STRP Use up to four times [...] of less than 7.0% ([facility]) 10 units at bed time 5 Pre-filled Pen Syringe Dosing Unit 3 10/11/2017 Active Insulin Pen Needle 31G X 6 MM MISCIndications:Type 2 diabetes mellitus with hemoglobin A1c goal of less than 7.0% ([facility]) Use with Lantus Solostar at bedtime 30 Each 3 10/11/2017 Active nystatin 573971 UNIT/GM creamIndications:Cand idal vulvovaginitis Apply topically to affected area 2 times a day. To affacted area for two weeks. 15 g 2 10/12/2017 Active Blood Glucose Monitoring Suppl ([employer] VERIO) w/Device KITIndications:Type 2 diabetes mellitus with hemoglobin A1c goal of less than 7.0% ([facility]) Use up to 4 times a day E11.9 1 Kit 0 10/17/2017 Active as of this encounter Active Problems Problem Noted Date Bladder tumor 10/11/2017 Chronic indwelling Clnie catheter 2017 Recurrent UTI 10/11/2017 Preoperative cardiovascular examination 10/11/2017 History of Clostridium difficile colitis 08/29/2017 Debility 07/19/2017 Body mass index (BMI) of 50.0 to 59.9 in adult ([facility]) 06/12/2017 Overview: Per Obesity protocol #1 Chronic pain syndrome 01/17/2017 MEDICATION USE AGREEMENT 01/17/2017 Overview: 01/17/17 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 01/17/2017 Acquired hypothyroidism 12/12/2016 Depression with anxiety 08/19/2016 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 1 10/09/2015 Restrictive lung disease 12/10/2014 Allergic rhinitis 05/29/2014 Type 2 diabetes mellitus with hemoglobin A1c goal of less than 7.0% ([facility]) 09/26/2013 Overview: ICD-10 update of inactive term Vitamin D deficiency 09/26/2013 Lymphedema 03/11/2013 Intermittent asthma with reliever use up to twice per week 01/09/2013 Stasis dermatitis 05/07/2012 NG (nonalcoholic steatohepatitis) 04/12 Diverticulosis of colon 05/02/2012 HTN, goal below 140/90 03/27/2012 Chronic rhinitis 03/27/2012 Cerebral palsy ([facility]) 01/24/2012 Obstructive sleep apnea 01/18/2011 Overview: [...] Atypical chest pain 08/19/2016 01/17/2017 Hepatic cirrhosis ([facility]) 08/19/2016 03/28/20 17 Polyuria 08/09/2016 01/17/2017 Urinary frequency 08/09/2016 01/17/2017 Generalized OA 06/14/2016 03/28/2017 Body mass index (BMI) of 45.0-49.9 in adult ([facility] ) 12/09/2015 01/17/2017 Overview: bmi= 48.04 12/09/15 Need for shingles vaccine 12/09/20152015 Bilateral shoulder pain 08/25/2015 06/07/20 16 Bilateral shoulder pain 07/16/2015 06/07/20 16 Cerebral palsy ([facility]) 04/23/2015 03/28/2017 Candidal vulvovaginitis 02/12/2015 06/07/20 16 Obesity, morbid (more than 1 00 lbs over ideal weight or BMI > 40) ([facility]) 02/09/2015 03/28/2017 THAD (obstructive sleep apnea) 02/09/2015 Leg weakness, bilateral 01/01/2015 06/07/20 16 Allergic conjunctivitis of both eyes 05/29/2014 07/02/2014 Allergic conjunctivitis of both eyes 02/27/2014 03/28/2017 Declining mobility 01/27/2014 06/07/2016 Intertrigo 01/10/2014 06/07/2016 Cutaneous candidiasis 01/10/2014 06/07/2016 DJD (degenerative joint disease), ankle and foot 01/10/2014 03/28/2017 Obesity, morbid (more than 1 00 lbs over ideal weight or BMI > 40) ([facility]) 10/28/2013 01/17/2017 Overview: bmi= 53.93 10/28/13 [...] over ideal weight or BMI > 40) ([facility]) 05/25/2012 01/17/2017 Overview: BMI= 55.27 05/25/12 [...] pain 01/24/2012 01/17/2017 Genetic Sleep Disorder Research Other*[id number] 05/13/2011 04/07/2016 Lumbosacral spondylosis 12/27/2010 05/25/20 12 Dyslipidemia, goal LDL below 130 06/01/2010 03/28/2012 Asthma with severity to be determined 03/04/2010 11/01/2011 Overview: Per Asthma Taxonomy ICD-10 update of inactive term Asthma in remission 03/04/2010 01/09/2013 Overview: Per Provider Protocol. Obesity, morbid (more than 1 00 lbs over ideal weight or BMI > 40) ([facility]) 12/08/2009 07/02/2014 Overview: Per Obesity Taxonomy [...] Visit Family Practice Nancy Matute MD [address] [place] [address] [phone] 11/08/2017 Office Visit Gastroenterology Lyssa Stout CRNP [address] [facility] [place] [address] [phone] 11/16/2017 Office Visit Gynecology Obstetrics Franca Carlin CRNP [address] [place] [address] [phone] 11/21/2017 Office Visit Family Practice Nancy Matute MD [address] [place] [address] [phone] 11/28/2017 Office Visit Gastroenterology Gadiel Pathak MD [address] [place] [address] [phone] 03/20/2018 Office Visit Dermatology Rachel Hill MD [address] [place] [address] [phone] 08/07/2018 Office Visit Sleep Disorders Lanette Fields CRNP [address] [facility] [place] [address] [phone] [place], Nurse Sleep Disorders [address] [facility] [address] [phone] Pending Results Name Priority Associated Diagnoses Date/Ti me CHEMISTRY-OUTSIDE Routine 11/01/2017 12:00 AM EST Health Maintenance Due Date [...] Group Subscriber ID Type Phone Address [facility] [id number] [employer] [id number] [facility] [id number] as of this encounter
--- OUTSIDE RECORDS SUMMARY | 2023-05-10 23:37 | External Medical Summary | Summary of Care ---
Author Name Unknown Organization [place] [address] Phone Care Team Providers Care Dozer Operator Name Role Phone Nancy Matute MD Primary Care Provider [phone] Encounter Details Date Type Department Care Team [...] Inhaler 1 06/29/2016 Active Vitamin D, Ergocalciferol, 64817 UNITS CapsuleIndications:Vi tamin D deficiency 1capsule every [...] 7.0% ([facility]) 10 units at bed time 5 Pre-filled Pen Syringe Dosing Unit 3 10/11/2017 Active Insulin Pen Needle 31G X 6 MM MISCIndications:Type 2 diabetes mellitus with hemoglobin A1c goal of less than 7.0% ([facility]) Use with Lantus Solostar at bedtime 30 Each 3 10/11/2017 Active nystatin 361396 UNIT/GM creamIndications:Cand idal vulvovaginitis Apply topically to affected area 2 times a day. To affacted area for two weeks. 15 g 2 10/12/2017 Active Blood Glucose Monitoring Suppl ([employer] VERIO) w/Device KITIndications:Type 2 diabetes mellitus with hemoglobin A1c goal of less than 7.0% ([facility]) Use up to 4 times a day E11.9 1 Kit 0 10/17/2017 Active as of this encounter Active Problems Problem Noted Date Bladder tumor 10/11/2017 Chronic indwelling Cline catheter 2017 Recurrent UTI 10/11/2017 Preoperative cardiovascular examination 10/11/2017 History of Clostridium difficile colitis 08/29/2017 Debility 07/19/2017 Body mass index (BMI) of 50.0 to 59.9 in adult ([facility]) 06/12/2017 Overview: Per Obesity protocol #1 Chronic [...] Atypical chest pain 08/19/2016 01/17/2017 Hepatic cirrhosis ([facility] [...] pain 01/24/2012 01/17/2017 Genetic Sleep Disorder Research Other*[id number] 05/13/2011 04/07/2016 Lumbosacral spondylosis 12/27/2010 05/25/20 12 [...] Family Practice Nancy Matute MD [address] [place] [address] [phone] 11/08/2017 Office Visit Gastroenterology Lyssa Stout CRNP [address] [facility] [place] [address] [phone] 11/16/2017 Office Visit Gynecology Obstetrics Franca Carlin CRNP [address] [place] [address] [phone] 11/21/2017 Office Visit Family Practice Nancy Matute MD [address] [place] [address] [phone] 11/28/2017 Office Visit Gastroenterology Gadiel Pathak MD [address] [place], [place] [address] 03/20/2018 Office Visit Dermatology Rachel Hill MD [address] [place] [address] [phone] 08/07/2018 Office Visit Sleep Disorders Lanette Fields CRNP [address] [facility] [address] [phone] Nurse Kentrell Sleep Disorders [address] [facility] [place] [address] [phone] Health Maintenance Due Date Last Done Comments [...] Subscriber ID Type Phone Address [facility] [id number] [employer] [id number] [facility] [id number] as of this encounter
--- OUTSIDE RECORDS SUMMARY | 2023-05-10 23:37 | External Medical Summary | Summary of Care ---
Author Name Unknown Organization [place] [address] Phone Care Team Providers Care Control Operator Flow Coat Name Role Phone Nancy Matute MD Primary Care Provider [phone] Reason for Visit * Reason Comments FORMS REQUEST [facility] Encounter Details Date Type Department Care Team Description 11/01/2017 Telephone [address] [place] [address] Nancy Matute MD [address] [place] [address] [phone] FORMS REQUEST ([facility]) Allergies Active Allergy Reactions Severity Noted [...] Inhaler 1 06/29/2016 Active Vitamin D, Ergocalciferol, 45177 UNITS CapsuleIndications:Vi tamin D deficiency 1capsule every [...] than 7.0% ([facility]) 10 units at bed time 5 Pre-filled Pen Syringe Dosing Unit 3 10/11/2017 Active Insulin Pen Needle 31G X 6 MM MISCIndications:Type 2 diabetes mellitus with hemoglobin A1c goal of less than 7.0% ([facility]) Use with Lantus Solostar at bedtime 30 Each 3 10/11/2017 Active nystatin 645118 UNIT/GM creamIndications:Cand idal vulvovaginitis Apply topically to affected area 2 times a day. To affacted area for two weeks. 15 g 2 10/12/2017 Active Blood Glucose Monitoring Suppl (ONET[employer]CH VERIO) w/Device KITIndications:Type 2 diabetes mellitus with hemoglobin A1c goal of less than 7.0% ([facility]) Use up to 4 times a [...] Chronic rhinitis 03/27/2012 Cerebral palsy ([facility]) 01/24/2012 Obstructive sleep apnea 01/18/2011 Overview: [...] pain 08/19/2016 01/17/2017 Hepatic cirrhosis ([facility]) [...] pain 01/24/2012 01/17/2017 Genetic Sleep Disorder Research Other*[id number] 05/13/2011 04/07/2016 Lumbosacral spondylosis 12/27/2010 05/25/20 12 [...] Nancy Matute MD * Telephone Encounter - Marek LudyMARZENAN - 11/01/2017 1:51 PM EST On your desk * Telephone Encounter - Dulce Call OSA - 11/01/2017 1:11 PM EST PT Function Assessment- Placed in Matute bin in this encounter Plan of Treatment Upcoming Encounters Date Type Specialty Care Team Description 11/07/2017 Office Visit Family Practice Nancy Matute MD [address] [place] [address] [phone] 11/08/2017 Office Visit Gastroenterology Lyssa Stout CRNP [address] [place] [address] [phone] 11/16/2017 Office Visit Gynecology Obstetrics Franca Carlin CRNP [address] [place] [address] [phone] 11/21/2017 Office Visit Family Practice Nancy Matute MD [address] [place] [address] [phone] 11/28/2017 Office Visit Gastroenterology Gadiel Pathak MD [address] [place], [place] [address] 03/20/2018 Office Visit Dermatology Rachel Hill MD [address] [place] [address] [phone] 08/07/2018 Office Visit Sleep Disorders [facility]ette Fields [facility] [address] [facility] [place] [address] [phone] Nurse Sleep Disorders [address] [place] [address] [phone] Health Maintenance Due Date Last Done Comments [...] Subscriber ID Type Phone Address [facility] [id number] [employer] [id number] [facility] [id number] as of this encounter
--- OUTSIDE RECORDS SUMMARY | 2023-05-10 23:37 | External Medical Summary | Summary of Care ---
Author Name Unknown Organization [place] [address] Phone Care Team Providers Care Clinical Specialty Rep Name Role Phone Nancy Matute MD Primary Care Provider [phone] Reason for Visit * Reason Comments Information Encounter Details Date Type Department Care Team Description 10/26/2017 Telephone [address] [place] [address] Nancy Matute MD [address] [place] [address] [phone] Information Allergies Active Allergy Reactions Severity Noted [...] Inhaler 1 06/29/2016 Active Vitamin D, Ergocalciferol, 00156 UNITS CapsuleIndications:Vi tamin D deficiency 1capsule every other week 8 Cap 6 09/27/2016 Active potassium chloride ER 10 MEQ TBCRIndications:Hypok alemia Take 1 Tab by mouth 2 times a day. With food. 60 Tab 5 01/06/2017 Active Blood Glucose Monitoring Suppl ([employer] VERIO) W/DEVICE KITIndications:Type 2 diabetes mellitus with hemoglobin A1c goal of less than 7.0% (HCC) Use as directed. Use daily to check blood sugars DX:E11.9 1 Kit 0 01/17/2017 Active Glucose Blood (Cell TherapyTOUCH ULTRA BLUE) STRPIndications:Type 2 diabetes mellitus with [...] of less than 7.0% ([facility]) 10 units at bed time 5 Pre-filled Pen Syringe Dosing Unit 3 10/11/2017 Active Insulin Pen Needle 31G X 6 MM MISCIndications:Type 2 diabetes mellitus with hemoglobin A1c goal of less than 7.0% ([facility]) Use with Lantus Solostar at bedtime 30 Each 3 10/11/2017 Active nystatin 937597 UNIT/GM creamIndications:Cand idal vulvovaginitis Apply topically to affected area 2 times a day. To affacted area for two weeks. 15 g 2 10/12/2017 Active Blood Glucose Monitoring Suppl (ONETOUCH VERIO) w/Device KITIndications:Type 2 diabetes mellitus with hemoglobin A1c goal of less than 7.0% ([facility]) Use up to 4 times a day E11.9 1 Kit 0 10/17/2017 Active as of this encounter Active Problems Problem Noted Date Bladder tumor 10/11/2017 Chronic indwelling Cline catheter 2017 Recurrent UTI 10/11/2017 Preoperative cardiovascular examination 10/11/2017 History of Clostridium difficile colitis 08/29/2017 Debility 07/19/2017 Body mass index (BMI) of 50.0 to 59.9 in adult ([facility]) 06/12/2017 Overview: Per Obesity protocol [...] 03/27/2012 Cerebral palsy ([facility]) 01/24/2012 Obstructive sleep apnea 01/18/2011 [...] Atypical chest pain 08/19/2016 01/17/2017 Hepatic cirrhosis ([facility]) 08/19/2016 03/28/20 [...] pain 01/24/2012 01/17/2017 Genetic Sleep Disorder Research Other*[id number] 05/13/2011 04/07/2016 Lumbosacral spondylosis 12/27/2010 05/25/20 12 [...] Telephone Encounter - Michaelle Lindquist LPN - 10/26/2017 11:39 AM EST Patient Notified. * Telephone Encounter - Nancy Matute MD - 10/26/2017 11:26 AM EST Please notify- Her last hemoglobin A1c was 6.9. At that level, many insurances will not pay for strips to test sugar more than once a day. Would consider increasing her Lantus insulin by 3 to 5 units per day. Nancy Matute MD * Telephone Encounter - Melissa Fajardo LPN - 10/26/2017 9:15 AM EST BSGs 2-1-18 179 AM 221 Noon 175 Bedtime 2- 2-18 168 157 176 2-3-18 169 216 144 2-5-18 167 2-6-18 197 212 315 2-7-18 160 2-8-18 139 146 2-9-18 211 2-10-18 193 180 2-11-18 171 172 2-12-18 167 222 185 2-13 189 253 2-14 155 2-15 211 Pt has been feeling well. How many times per day do you want her BSGs checked? in this encounter Plan of Treatment Upcoming Encounters Date Type Specialty Care Team Description 11/02/2017 Office Visit Gynecology Obstetrics Renetta Martinez MD [address] [place] [address] [phone] 11/08/2017 Office Visit Gastroenterology Lyssa Stout CRNP 132 [facility] [place] [address] [phone] 11/21/2017 Office Visit Family Practice Nancy Matute MD [address] [place], [place] [address] 11/28/2017 Office Visit Gastroenterology Gadiel Pathak MD [address] [place], [place] [address] 03/20/2018 Office Visit Dermatology Rachel Hill MD [address] [place] [address] [phone] 08/07/2018 Office Visit Sleep Disorders Lanette Fields CRNP [address] [place] [address] [phone] Kentrell Nurse Sleep Disorders [address] [place] [address] [phone] Health Maintenance Due Date Last Done Comments [...] Type Phone Address [facility] [id number] [employer] [id number] [facility] [id number] as of this encounter
--- OUTSIDE RECORDS SUMMARY | 2023-05-10 23:37 | External Medical Summary | Summary of Care ---
Author Name Unknown Organization [place] [address] Phone Care Team Providers Care Product Marketing Intern Name Role Phone Nancy Matute MD Primary Care Provider [phone] Encounter Details Date Type Department Care Team Description 11/01/2017 Scan Encounter Sleep Disorders, [facility] [address] [facility] [place] [address] Lanette Fields CRNP [address] [facility] [id number] <No scans attached> Allergies Active Allergy Reactions [...] Inhaler 1 06/29/2016 Active Vitamin D, Ergocalciferol, 68949 UNITS CapsuleIndications:Vi tamin D deficiency 1capsule every other week 8 Cap 6 09/27/2016 Active potassium chloride ER 10 MEQ TBCRIndications:Hypok alemia Take 1 Tab by mouth 2 times a day. With food. 60 Tab 5 01/06/2017 Active Blood Glucose Monitoring Suppl ([employer] VERIO) W/DEVICE KITIndications:Type 2 diabetes mellitus with hemoglobin A1c goal of less than 7.0% (HCC) Use as directed. Use daily to check blood sugars DX:E11.9 1 Kit 0 01/17/2017 Active Glucose Blood (GE[employer]'SuppTOUCH ULTRA BLUE) STRPIndications:Type 2 diabetes mellitus with [...] than 7.0% ([facility]) 10 units at bed time 5 Pre-filled Pen Syringe Dosing Unit 3 10/11/2017 Active Insulin Pen Needle 31G X 6 MM MISCIndications:Type 2 diabetes mellitus with hemoglobin A1c goal of less than 7.0% ([facility]) Use with Lantus Solostar at bedtime 30 Each 3 10/11/2017 Active nystatin 422681 UNIT/GM creamIndications:Cand idal vulvovaginitis Apply topically to affected area 2 times a day. To affacted area for two weeks. 15 g 2 10/12/2017 Active Blood Glucose Monitoring Suppl (ONETOUCH VERIO) w/Device KITIndications:Type 2 diabetes mellitus with hemoglobin A1c goal of less than 7.0% ([facility]) Use up to 4 times a day E11.9 1 Kit 0 10/17/2017 Active as of this encounter Active Problems Problem Noted Date Bladder tumor 10/11/2017 Chronic indwelling Cline catheter 2017 Recurrent UTI 10/11/2017 Preoperative cardiovascular examination 10/11/2017 History of Clostridium difficile colitis 08/29/2017 Debility 07/19/2017 Body mass index (BMI) of 50.0 to 59.9 in adult ([facility]) 06/12/2017 Overview: Per Obesity protocol #1 Chronic pain syndrome 01/17/2017 MEDICATION USE AGREEMENT 01/17/2017 Overview: 01/17/17 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 01/17/2017 Acquired hypothyroidism 12/12/2016 Depression with anxiety 08/19/2016 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 1 10/09/2015 Restrictive lung disease 12/10/2014 Allergic rhinitis 05/29/2014 Type 2 diabetes mellitus with hemoglobin A1c goal of less than 7.0% ([facility]) 09/26/2013 Overview: ICD-10 update of inactive term Vitamin D deficiency 09/26/2013 Lymphedema 03/11/2013 Intermittent asthma with reliever use up to twice per week 01/09/2013 Stasis dermatitis 05/07/2012 NG (nonalcoholic steatohepatitis) 04/12 Diverticulosis of colon 05/02/2012 HTN, goal below 140/90 03/27/2012 Chronic rhinitis 03/27/2012 Cerebral palsy ([facility]) 01/24/2012 Obstructive sleep apnea 01/18/2011 Overview: 08/18/11 [...] chest pain 08/19/2016 01/17/2017 Hepatic cirrhosis ([facility]) 08/19/2016 03/28/20 17 Polyuria 08/09/2016 01/17/2017 Urinary frequency 08/09/2016 01/17/2017 Generalized OA 06/14/2016 03/28/2017 Body mass index (BMI) of 45.0-49.9 in adult ([facility] ) 12/09/2015 01/17/2017 Overview: bmi= 48.04 12/09/15 Need for shingles vaccine 12/09/20152015 Bilateral shoulder pain 08/25/2015 06/07/20 16 Bilateral shoulder pain 07/16/2015 06/07/20 16 Cerebral palsy ([facility]) 04/23/2015 03/28/2017 Candidal vulvovaginitis 02/12/2015 06/07/20 16 Obesity, morbid (more than 1 00 lbs over ideal weight or BMI > 40) ([facility]) 02/09/2015 03/28/2017 THAD (obstructive sleep apnea) [...] > 40) ([facility]) 10/28/2013 01/17/2017 Overview: bmi= 53.93 10/28/13 [...] > 40) ([facility]) 05/25/2012 01/17/2017 Overview: BMI= 55.27 05/25/12 [...] pain 01/24/2012 01/17/2017 Genetic Sleep Disorder Research Other*[id number] 05/13/2011 04/07/2016 Lumbosacral spondylosis 12/27/2010 05/25/20 12 Dyslipidemia, goal LDL below 130 06/01/2010 03/28/2012 Asthma with severity to be determined 03/04/2010 11/01/2011 Overview: Per Asthma Taxonomy ICD-10 update of inactive term Asthma in remission 03/04/2010 01/09/2013 Overview: Per Provider Protocol. Obesity, morbid (more than 1 00 lbs over ideal weight or BMI > 40) ([facility]) 12/08/2009 07/02/2014 Overview: Per Obesity Taxonomy [...] Family Practice Nancy Matute MD [address] [place] [address] [phone] 11/08/2017 Office Visit Gastroenterology Lyssa Stout CRNP [address] [place] [address] [phone] 11/16/2017 Office Visit Gynecology Obstetrics Franca Carlin CRNP [address] [place] [address] [phone] 11/21/2017 Office Visit Family Practice Nancy Matute MD [address] [place] [address] [phone] 11/28/2017 Office Visit Gastroenterology Gadiel Pathak MD [address] [place] [address] 03/20/2018 Office Visit Dermatology Rachel Hill MD [address] [place] [address] [phone] 08/07/2018 Office Visit Sleep Disorders Lanette Fields CRNP [address] [facility] [place] [address] [phone] [place], Nurse Sleep Disorders [address] [facility] [address] [phone] Health Maintenance Due Date Last Done Comments [...] Subscriber ID Type Phone Address [facility] [id number] [employer] [id number] [facility] [id number] as of this encounter
--- OUTSIDE RECORDS SUMMARY | 2023-05-10 23:38 | External Medical Summary | Summary of Care ---
Author Name Unknown Organization [place] [address] Phone Care Team Providers Care Hip Hop Artist Name Role Phone Nancy Matute MD Primary Care Provider [phone] Reason for Visit * Reason Comments FORMS REQUEST [facility] Encounter Details Date Type Department Care Team Description 10/25/2017 Telephone [id number] [place] [address] Nancy Matute MD [address] [place] [address] [phone] FORMS REQUEST ([facility]) Allergies Active Allergy Reactions Severity [...] Inhaler 1 06/29/2016 Active Vitamin D, Ergocalciferol, 12890 UNITS CapsuleIndications:Vi tamin D deficiency 1capsule every [...] bedtime 30 Each 3 10/11/2017 Active nystatin 371228 UNIT/GM creamIndications:Cand idal vulvovaginitis Apply topically to [...] 140/90 03/27/2012 Chronic rhinitis 03/27/2012 Cerebral palsy ([facility]) 01/24/2012 Obstructive sleep apnea 01/18/2011 Overview: 08/18/11 [...] pain 01/24/2012 01/17/2017 Genetic Sleep Disorder Research Other*[id number] 05/13/2011 04/07/2016 Lumbosacral spondylosis 12/27/2010 05/25/20 12 [...] Notes * Telephone Encounter - Michaelle Lindquist TERMITE TREATER HELPER - 10/25/2017 11:15 AM EST Noted * Telephone Encounter - Lynsey Ferrari THAD - 10/25/2017 10:42 AM EST Received missed visit note from [facility] for doctor's signature. In Giovani's forms bin. in this encounter Plan of Treatment Upcoming Encounters Date Type Specialty Care Team Description 11/02/2017 Office Visit Gynecology Obstetrics Renetta Martinez MD [address] [place] [address] [phone] 11/08/2017 Office Visit Gastroenterology Lyssa Stout CRNP [address] [facility] [place] [address] [phone] 11/21/2017 Office Visit Family Practice Nancy Matute MD [address] [place] [address] [phone] 11/28/2017 Office Visit Gastroenterology Gadiel Pathak MD [address] [place] [address] [phone] 03/20/2018 Office Visit Dermatology Rachel Hill MD [address] [place] [address] [phone] 08/07/2018 Office Visit Sleep Disorders Lanette Fields CRNP [address] [place] [address] [phone] [facility] [address] [place] [address] [phone] Health Maintenance Due Date Last Done Comments [...] Address [facility] [id number] [employer] [id number] [facility] [id number] as of this encounter
--- OUTSIDE RECORDS SUMMARY | 2023-05-10 23:38 | External Medical Summary | Summary of Care ---
Author Name Unknown Organization [place] [address] Phone Care Team Providers Care Ultrasonic Tester Name Role Phone Nancy Matute MD Primary Care Provider [phone] Reason for Visit * Reason Comments FORMS REQUEST Encounter Details Date Type Department Care Team Description 10/13/2017 Telephone [address] [place] [address] Nancy Matute MD [address] [place] [address] [phone] FORMS REQUEST Allergies Active Allergy Reactions Severity [...] Inhaler 1 06/29/2016 Active Vitamin D, Ergocalciferol, 13694 UNITS CapsuleIndications:Vi tamin D deficiency 1capsule every other week 8 Cap 6 09/27/2016 Active potassium chloride ER 10 MEQ TBCRIndications:Hypok alemia Take 1 Tab by mouth 2 times a day. With food. 60 Tab 5 01/06/2017 Active Blood Glucose Monitoring Suppl (CrowdabilityTOUCH VERIO) W/DEVICE KITIndications:Type 2 diabetes mellitus with hemoglobin A1c goal of less than 7.0% (HCC) Use as directed. Use daily to check blood sugars DX:E11.9 1 Kit 0 01/17/2017 Active Glucose Blood (CrowdabilityTOUCH ULTRA BLUE) STRPIndications:Type 2 diabetes mellitus with [...] than 7.0% ([facility]) 10 units at bed time 5 Pre-filled Pen Syringe Dosing Unit 3 10/11/2017 Active Insulin Pen Needle 31G X 6 MM MISCIndications:Type 2 diabetes mellitus with hemoglobin A1c goal of less than 7.0% ([facility]) Use with Lantus Solostar at bedtime 30 Each 3 10/11/2017 Active nystatin 539723 UNIT/GM creamIndications:Cand idal vulvovaginitis Apply topically to affected area 2 times a day. To affacted area for two weeks. 15 g 2 10/12/2017 Active as of this encounter Active Problems Problem Noted Date Bladder tumor 10/11/2017 Chronic indwelling Cline catheter 2017 Recurrent UTI 10/11/2017 Preoperative cardiovascular examination 10/11/2017 History of Clostridium difficile colitis 08/29/2017 Debility 07/19/2017 Body mass index (BMI) of 50.0 to 59.9 in adult ([facility]) 06/12/2017 Overview: Per Obesity protocol [...] palsy ([facility]) 01/24/2012 Obstructive sleep apnea 01/18/2011 [...] pain 08/19/2016 01/17/2017 Hepatic cirrhosis ([facility]) [...] 40) ([facility]) 02/09/2015 03/28/2017 THAD (obstructive sleep [...] pain 01/24/2012 01/17/2017 Genetic Sleep Disorder Research Other*[id number] 05/13/2011 04/07/2016 Lumbosacral spondylosis 12/27/2010 05/25/20 12 [...] Telephone Encounter - Nancy Matute MD - 10/16/2017 4:19 PM EST While their form was previously signedand faxed addendum to office note is completed. Nancy Matute MD * Telephone Encounter - Nancy Matute MD - 10/16/2017 12:08 PM EST There form requesting this information had been signed and faxed previously. Nancy Matute MD * Telephone Encounter - Jovana Lambert RN - 10/16/2017 7:56 AM EST Please address asa question And document * Telephone Encounter - Nancy Matute MD - 10/15/2017 3:01 PM EST Please forward copy of office note from last week to [facility] for clearance. Nancy Matute MD . * Telephone Encounter - Quyen Hernadez OSA - 10/13/2017 9:53 AM EST Nurse from Dr. Simeon Escobar office calling requesting to have Office Note sent from patient's pre-op clearance visit on 10/11/17. Stated note needs to indicate patient is okay to stop Aspirin 10 days prior to procedure date of 10/30/17. Requested signed and completed note be faxed to [phone]. in this encounter Plan of Treatment Upcoming Encounters Date Type Specialty Care Team Description 10/17/2017 Office Visit Gynecology Obstetrics Alberta Gould, PA-C [address] [facility] [place] [address] [phone] 11/08/2017 Office Visit Gastroenterology Lyssa Stout CRNP [address] [facility] [address] [phone] 11/21/2017 Office Visit Family Practice Nancy Matute MD [address] [place], [place] [address] 11/28/2017 Office Visit Gastroenterology Gadiel Pathak MD [address] [place] [address] [phone] 03/20/2018 Office Visit Dermatology Rachel Hill MD [address] [place] [address] [phone] 08/07/2018 Office Visit Sleep Disorders Lanette Fields CRNP [address] [place] [address] [phone] Nurse [facility] [address] [place] [address] [phone] Health Maintenance Due Date Last Done Comments Yearly B-12 1955 DIABETES-EYE EXAM 1973 BREAST CANCER SCREENING DISCUSSION YEARLY AGES 40-75 01/18/2018 01/18/2017, 01/17/2017 (Discussed), 12/22/2015, Additional history exists DIABETES-URINE MICROALBUMIN EVERY 12 MONTHS 02/03/2018 02/03/2017, 08/25/2015, 12/09/2014, Additional history exists DIABETES-FOOT EXAM 03/22/2018 03/22/2017, 0 06/07/2016, 08/25/2015, Additional history exists DIABETES-HGBA1C EVERY 6 MONTHS 04/10/2018 10/11/2017, 03/28/2017, 02/01/2017, Additional history exists DIABETES-LDL EVERY 12 MONTHS 10/11/2018 10/11/2017, 02/01/2017, 05/05/2016, Additional history exists PAP SMEAR-EVERY 3 YRS,AGES 21-65 10/10/2019 10/10/2016, 07/02/2014, 04/16/2013, Additional history exists TETANUS EVERY 10 YRS-TDAP (BOOSTRIX/ADACEL) SUGGESTED IF NOT RECEIVED IN PAST 05/01/2027 05/01/2017, 05/26/2008 PNEUMOCOCCAL 19-64 MEDIUM RISK Completed 06/01/2010 *ASTHMA ACTION PLAN-ADULT YEARLY Addressed 06/07/2016 (Discussed), 12/09/2014 Overridden with the intention of not completing the topic Influenza Vaccine (FLU shot) Completed 07/10/2017, 06/07/2016, 05/22/2015, Additional history exists as of this encounter Implants Not on fileas of this encounter Insurance Payer Benefit Plan / Group Subscriber ID Type Phone Address [facility] [id number] [employer] [id number] [facility] [id number] as of this encounter
--- OUTSIDE RECORDS SUMMARY | 2023-05-10 23:38 | External Medical Summary | Summary of Care ---
Author Name Unknown Organization [place] [address] Phone Care Team Providers Care Dobby Loom Weaver Name Role Phone Nancy Matute MD Primary Care Provider [phone] Encounter Details Date Type Department Care Team Description 10/19/2017 Orders Only [address] [place] [address] Nancy Matute MD [address] [place] [address] [phone] Allergies Active Allergy Reactions Severity Noted Date [...] Inhaler 1 06/29/2016 Active Vitamin D, Ergocalciferol, 87967 UNITS CapsuleIndications:Vi tamin D deficiency 1capsule every other week 8 Cap 6 09/27/2016 Active potassium chloride ER 10 MEQ TBCRIndications:Hypok alemia Take 1 Tab by mouth 2 times a day. With food. 60 Tab 5 01/06/2017 Active Blood Glucose Monitoring Suppl (KirusaTOUCH VERIO) W/DEVICE KITIndications:Type 2 diabetes mellitus with hemoglobin A1c goal of less than 7.0% (HCC) Use as directed. Use daily to check blood sugars DX:E11.9 1 Kit 0 01/17/2017 Active Glucose Blood (KirusaTOUCH ULTRA BLUE) STRPIndications:Type 2 diabetes mellitus with [...] Dosing Unit 11 01/17/2017 Active Glucose Blood (KirusaTOUCH VERIO) STRP Use up to four times [...] less than 7.0% ([facility]) 10 units at bed time 5 Pre-filled Pen Syringe Dosing Unit 3 10/11/2017 Active Insulin Pen Needle 31G X 6 MM MISCIndications:Type 2 diabetes mellitus with hemoglobin A1c goal of less than 7.0% ([facility]) Use with Lantus Solostar at bedtime 30 Each 3 10/11/2017 Active nystatin 275635 UNIT/GM creamIndications:Cand idal vulvovaginitis Apply topically to affected area 2 times a day. To affacted area for two weeks. 15 g 2 10/12/2017 Active Blood Glucose Monitoring Suppl (KirusaTOUCH VERIO) w/Device KITIndications:Type 2 diabetes mellitus with hemoglobin A1c goal of less than 7.0% ([facility]) Use up to 4 times a day E11.9 1 Kit 0 10/17/2017 Active as of this encounter Active Problems Problem Noted Date Bladder tumor 10/11/2017 Chronic indwelling Cline catheter 2017 Recurrent UTI 10/11/2017 Preoperative cardiovascular examination 10/11/2017 History of Clostridium difficile colitis 08/29/2017 Debility 07/19/2017 Body mass index (BMI) of 50.0 to 59.9 in adult ([facility]) 06/12/2017 Overview: Per Obesity [...] less than 7.0% ([facility]) 09/26/2013 Overview: ICD-10 update of inactive term Vitamin D deficiency 09/26/2013 Lymphedema 03/11/2013 Intermittent asthma with reliever use up to twice per week 01/09/2013 Stasis dermatitis 05/07/2012 NG (nonalcoholic steatohepatitis) 04/12 Diverticulosis of colon 05/02/2012 HTN, goal below 140/90 03/27/2012 Chronic rhinitis 03/27/2012 Cerebral palsy ([facility]) 01/24/2012 Obstructive sleep apnea [...] Atypical chest pain 08/19/2016 01/17/2017 Hepatic cirrhosis ([facility]) 08/19/2016 03/28/20 17 Polyuria 08/09/2016 01/17/2017 Urinary frequency 08/09/2016 01/17/2017 Generalized OA 06/14/2016 03/28/2017 Body mass index (BMI) of 45.0-49.9 in adult ([facility] ) 12/09/2015 01/17/2017 Overview: bmi= 48.04 12/09/15 Need for shingles vaccine 12/09/20152015 Bilateral shoulder pain 08/25/2015 06/07/20 16 Bilateral shoulder pain 07/16/2015 06/07/20 16 Cerebral palsy ([facility]) 04/23/2015 03/28/2017 Candidal vulvovaginitis 02/12/2015 06/07/20 16 Obesity, morbid (more than 1 00 lbs over ideal weight or BMI > 40) ([facility]) 02/09/2015 03/28/2017 THAD (obstructive [...] over ideal weight or BMI > 40) ([facility]) 10/28/2013 01/17/2017 Overview: bmi= [...] over ideal weight or BMI > 40) ([facility]) 05/25/2012 01/17/2017 Overview: BMI= [...] pain 01/24/2012 01/17/2017 Genetic Sleep Disorder Research Other*[id number] 05/13/2011 04/07/2016 Lumbosacral spondylosis 12/27/2010 05/25/20 12 Dyslipidemia, goal LDL below 130 06/01/2010 03/28/2012 Asthma with severity to be determined 03/04/2010 11/01/2011 Overview: Per Asthma Taxonomy ICD-10 update of inactive term Asthma in remission 03/04/2010 01/09/2013 Overview: Per Provider Protocol. Obesity, morbid (more than 1 00 lbs over ideal weight or BMI > 40) ([facility]) 12/08/2009 07/02/2014 Overview: Per [...] Visit Gynecology Obstetrics Renetta Martinez MD [address] [facility] [place] [address] [phone] 11/08/2017 Office Visit Gastroenterology Lyssa Stout CRNP [address] [facility] [place] [address] [phone] 11/21/2017 Office Visit Family Practice Nancy Matute MD [address] [place], [place] [address] 11/28/2017 Office Visit Gastroenterology Gadiel Pathak MD [address] [place] [address] 03/20/2018 Office Visit Dermatology Rachel Hill MD [address] [place] [address] [phone] 08/07/2018 Office Visit Sleep Disorders Lanette Fields CRNP [address] [facility] [place] [address] [phone] Nurse [facility] [address] [place] [address] [phone] Pending Results Name Priority Associated Diagnoses Date/Ti me XR CHEST 2 VIEWS Routine 10/18/2017 12:00 AM EST Health Maintenance Due Date [...] Group Subscriber ID Type Phone Address [facility] [id number] [employer] [id number] [facility] [id number] as of this encounter
--- OUTSIDE RECORDS SUMMARY | 2023-05-10 23:38 | External Medical Summary | Summary of Care ---
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 Name Role Phone Nancy Matute MD Primary Care Provider [phone] Reason for Visit * Reason Comments Preop Pt Assessment Encounter Details Date Type Department Care Team Description 10/11/2017 Office Visit [address] [address] Nancy Matute MD [address] [place] [address] [phone] Bladder tumor*;Chronic indwelling Nova catheter;Recurrent UTI;Preoperative cardiovascular examination;Type 2 diabetes mellitus with hemoglobin A1c goal of less than 7.0% ([facility]);Hyperglycemia;Panc ytopenia ([facility]);Sinus congestion;Cerebral palsy, unspecified type ([facility]);HTN, goal below 140/90;Spinal stenosis of lumbar region without neurogenic claudication;DDD [...] Inhaler 1 06/29/2016 Active Vitamin D, Ergocalciferol, 45702 UNITS CapsuleIndications: Vitamin D deficiency 1capsule every other week 8 Cap 6 09/27/2016 Active potassium chloride ER 10 MEQ TBCRIndications:Hyp okalemia Take 1 Tab by mouth 2 times a day. With food. 60 Tab 5 01/06/2017 Active Blood Glucose Monitoring Suppl (AudienceRate LtdUCH VERIO) W/DEVICE KITIndications:Type 2 diabetes mellitus with hemoglobin A1c goal of less than 7.0% (HCC) Use as directed. Use daily to check blood sugars DX:E11.9 1 Kit 0 01/17/2017 Active Glucose Blood (pocketfungamesTOUCH ULTRA BLUE) STRPIndications:Typ e 2 diabetes mellitus [...] other meds) 30 Tab 5 10/11/2017 Active Hydrocodone-Acetami nophen (NORCO) 10-325 MG per [...] at bedtime 30 Each 3 10/11/2017 Active levothyroxine (LEVOXYL) 88 MCG Tablet Take 1 Tab by mouth daily. (at least 30 min prior to breakfast or other meds) 30 Tab 5 06/20/2017 10/11/19 18 Discontinued docusate sodium (COLACE) 100 MG Capsule Take 1 Cap by mouth 2 times a day. 60 Cap 5 07/19/2017 10/11/19 18 Discontinued nystatin 067521 UNIT/GM creamIndications:Ca ndidal vulvovaginitis Apply topically to affected area 2 times a day. To affacted area for two weeks. 15 g 2 08/24/2017 10/12/19 18 Discontinued Hydrocodone-Acetami nophen (NORCO) 10-325 MG per tabletIndications:S jennifer stenosis of lumbar region without neurogenic claudication,DDD (degenerative disc disease), lumbar,MEDICATION USE AGREEMENT Take 1 Tab by mouth 2 times a day as needed for Pain. 60 Tab 0 09/08/2017 10/11/19 18 Discontinued as of this encounter Active Problems Problem Noted Date Bladder tumor 10/11/2017 Chronic indwelling Nova catheter 2017 Recurrent UTI 10/11/2017 Preoperative cardiovascular examination 10/11/2017 History of Clostridium difficile colitis 08/29/2017 Debility 07/19/2017 Body mass index (BMI) of 50.0 to 59.9 in adult ([facility]) 06/12/2017 Overview: Per Obesity protocol #1 Chronic pain syndrome 01/17/2017 MEDICATION USE AGREEMENT 01/17/2017 Overview: 01/17/17 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 01/17/2017 Acquired hypothyroidism 12/12/2016 Depression with anxiety 08/19/2016 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 1 10/09/2015 Restrictive lung disease 12/10/2014 Allergic rhinitis 05/29/2014 Type 2 diabetes mellitus with hemoglobin A1c goal of less than 7.0% ([facility]) 09/26/2013 Overview: ICD-10 update of [...] index (BMI) of 45.0-49.9 in adult ([facility] ) 12/09/2015 01/17/2017 Overview: bmi= 48.04 12/09/15 Need for shingles vaccine 12/09/20152015 Bilateral shoulder pain 08/25/2015 06/07/20 16 Bilateral shoulder pain 07/16/2015 06/07/20 16 Cerebral palsy ([facility]) 04/23/2015 03/28/2017 Candidal vulvovaginitis 02/12/2015 06/07/20 16 Obesity, morbid (more than 1 00 lbs over ideal weight or BMI > 40) ([facility]) 02/09/2015 03/28/2017 THAD (obstructive sleep [...] BMI > 40) ([facility]) 10/28/2013 01/17/2017 Overview: bmi= 53.93 [...] BMI > 40) ([facility]) 05/25/2012 01/17/2017 Overview: BMI= 55.27 [...] pain 01/24/2012 01/17/2017 Genetic Sleep Disorder Research Other*[id number] 05/13/2011 04/07/2016 Lumbosacral spondylosis 12/27/2010 05/25/20 12 Dyslipidemia, goal LDL below 130 06/01/2010 03/28/2012 Asthma with severity to be determined 03/04/2010 11/01/2011 Overview: Per Asthma Taxonomy ICD-10 update of inactive term Asthma in remission 03/04/2010 01/09/2013 Overview: Per Provider Protocol. Obesity, morbid (more than 1 00 lbs over ideal weight or BMI > 40) ([facility]) 12/08/2009 07/02/2014 Overview: Per Obesity [...] Vital Sign Reading Time Taken Blood Pressure 116/68 10/11/2017 12:43 PM EST Pulse 78 10/11/2017 12:43 PM EST Temperature 36.6 C (97.9 F) 10/11/2017 1 2:43 PM EST Respiratory Rate 18 10/11/2017 12:4 3 PM EST Oxygen Saturation - - Inhaled Oxygen Concentration - - Weight 120.2 kg (265 lb) 10/11/2017 12: 43 PM EST Height - - Body Mass Index 53.52 10/11/2017 12:43 PM EST in this encounter Progress Notes * Nancy Matute MD - 10/11/2017 3:20 PM EST Formatting of this note may be different from the original. S: Shaina Bustos is a 62 year old female. Chief Complaint Patient presents with Preop Pt Assessment HPI: Incredibly complicated patient with cerebral palsy, hypertension, diabetes, with chronic lymphedema and stasis dermatitis who is referred by Dr. Simeon Escobar II for preoperative evaluation and medical clearance for cystoscopy and trans urethral resection of bladder tumor scheduled for laterin October. Patient did have cystoscopy that identified bladder tumor. Has had recurrent urinary tract infections with an indwelling Nova catheter. Has had more persistent bloody urine since this is dusky was done. Did see senior staff specialized employment for cardiac clearance earlier this month. Sugar has been running higher complete blood count on the September 20September showed a pancytopenia. Last summer CBC had only mildly low platelet count. Is willing to do blood testing today. Is interested in beginning Lantus pen today to get better control of her sugars. Is having more sinus congestion and sinus congestion headaches. May use saline nasal spray periodically. Does need a refill for Flonase. Eating and drinking okay. Did see GI nutrition. Was told she should lose 100 lb. No other complaints or concerns. Patient Active Problem List Diagnosis Code Spinal stenosis of lumbar region without neurogenic claudication M48.061 Obstructive sleep apnea G47.33 Cerebral palsy ([facility]) G80.9 HTN, goal below 140/90 I10 Chronic rhinitis J31.0 NG (nonalcoholic steatohepatitis) K75.81 Diverticulosis of colon K57.30 Stasis dermatitis I87.2 DDD (degenerative disc disease), lumbar M51.36 Intermittent asthma with reliever use up to twice per week J45.20 Lymphedema I89.0 Type 2 diabetes mellitus with hemoglobin A1c goal of less than 7.0% ([facility]) E11.9 Vitamin D deficiency E55.9 Allergic rhinitis J30.9 Restrictive lung disease J98.4 Dyslipidemia, goal LDL below 70 E78.5 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 R39.81 Depression with anxiety F41.8 Acquired hypothyroidism E03.9 Chronic pain syndrome G89.4 MEDICATION USE AGREEMENT [id number] 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 (at least 30 min prior to breakfast or other meds) 30 Tab 5 Hydrocodone-Acetaminophen (NORCO) 10-325 MG per tablet Take 1 Tab by mouth 2 times a day as needed for Pain. 60 Tab 0 fluticasone (FLONASE) 50 MCG/ACT nasal spray Administer 2 Sprays into each nostril daily. 1 Inhaler 5 atenolol (TENORMIN) 25 MG Tablet Take 1 Tab by mouth at bedtime. 30 Tab 5 atorvaSTATin (LIPITOR) 40 MG Tablet Take 1 Tab by mouth at bedtime. 90 Tab 1 cyclobenzaprine (FLEXERIL) 10 MG Tablet Take 1 Tab by mouth at bedtime. 30 Tab 0 nystatin 515092 UNIT/GM cream Apply topically to affected area 2 times a day. To affacted area for two weeks. 15 g 2 escitalopram (LEXAPRO) 10 MG Tablet Take 15 Tabs by mouth daily. 0 furosemide (LASIX) 20 MG Tablet One pill by mouth once a day, as needed for edema 30 Tab 5 omeprazole (PRILOSEC) 20 MG CPDR Take 1 Cap by mouth daily. 90 Cap 1 fexofenadine (BERNARDA) 180 MG Tablet One pill by mouth once a day as needed for allergies 30 Tab 11 levothyroxine (LEVOXYL) 100 MCG Tablet Take 1 Tab by mouth daily. (at least 30 min prior to breakfast or other meds) 30 Tab 5 traZODone (DESYREL) 50 MG Tablet take 1 tablet by mouth at bedtime 30 Tab 5 MetFORMIN (GLUCOPHAGE) 1000 MG Tablet Take 1 Tab by mouth 2 times a day. With food. 60 Tab 5 busPIRone (BUSPAR) 10 MG Tablet 0 gabapentin (NEURONTIN) 300 MG Capsule One pill in am, one midday, two in pm, as directed, increase up to 2 capsules 3 times daily 180 Cap 5 Glucose Blood (ONETOUCH VERIO) STRP Use up to four times a day as directed.DX:E11.9 100 Strip 11 Blood Glucose Monitoring Suppl (ONETOUCH VERIO) W/DEVICE KIT Use as directed. Use daily to check blood sugars DX:E11.9 1 Kit 0 Glucose Blood (ONETOUCH ULTRA BLUE) STRP Use as directed 4 times a day as needed for Other (Usedaily to check blood sugars DX:E11.9). Use up to four times a day as directed 100 Strip 11 ONETOUCH ULTRASOFT LANCETS MISC Use as directed 4 times a day as needed (Use daily to check blood sugars DX:E11.9). Use up to four times a day as directed 1 Box Dosing Unit 11 potassium chloride ER 10 MEQ TBCR Take 1 Tab by mouth 2 times a day. With food. 60 Tab 5 albuterol (PROVENTIL HFA) 108 (90 BASE) MCG/ACT inhaler Inhale 2 Puffs by mouth 4 times a day. 1 Inhaler 1 nystatin (NYSTOP) powder Apply topically to affected area 3 times a day. Sprinkle over affectedarea. 1 Bottle 1 Azelastine HCl (ASTELIN) 0.1 % nasal spray Administer 2 Sprays into each nostril 2 times a day.1 Bottle 11 fluticasone (FLONASE) 50 MCG/ACT nasal spray Administer 2 Sprays into each nostril daily. 1 Inhaler 5 BETAMETHASONE VALERATE 0.1 % EX CREA apply to affected area twice daily, as needed 30 g 1 ASPIRIN 81 MG PO TABS one tab by mouth daily 34 Tab 5 CENTRUM SILVER PO TABS 1 tab daily 1 Tab 0 NEBULIZER KORTNEY as directed 1 0 albuterol-ipratropium (DUONEB) 2.5-0.5 MG/3ML nebulizer solution Use 1 vial in nebulizer 180 mL 0 Vitamin D, Ergocalciferol, 60674 UNITS Capsule 1capsule every other week 8 Cap 6 Glucosamine-Chondroitin (GLUCOSAMINE CHONDR COMPLEX) 500-400 MG Capsule Take 1 Cap by mouth 3 timesa day. 1 Cap 0 OCEAN NASAL SPRAY 0.65 % NA SOLN Two sprays in each nostril as needed for nasal dryness or congestion 1 Bottle 5 Past Medical History: Diagnosis Date Chronic pain [...] DIAGNOSTIC (RECTUM) 10/04/2016 normal bx, repeat 10 yrs/[facility] DENTAL SURGERY PROCEDURE NEC wisdom teeth x 4 DILATION AND CURETTAGE (D&C) EGD, FLEXIBLE, DIAGNOSTIC 10/04/2016 gastritis/[facility] PELVIS/HIP JOINT SURGERY NEC teenager aid in walking REPAIR/GRAFT ACHILLES TENDON age 40 aid in walking Review of patient's allergies indicates: Allergen Reactions Pcn [Penicillins] Rash Family History Problem Relation Age of Onset Heart Disorder Father of AL at age 61 Heart Disorder Mother of AL age 72 Diabetes Father Cancer None Arthritis [...] itching Eyes: negative Ears/Nose/Throat: As above Respiratory: pt denies:, cough and wheezing Cardiovascular: pt denies:, palpitations, tachycardia, irregular heart beat and chest pain Gastrointestinal: pt. denies:, abdominal pain, nausea, heartburn, diarrhea Genitourinary: As above Musculoskeletal: Stable Neurologic: pt denies:, numbness or tingling of hands and numbness or tingling of feet Psychiatric: Stable Hematologic/Lymphatic/Immunologic: pt denies:, fever and chills Endocrine: pt denies:, cold intolerance and heat intolerance O: BP 116/68 | Pulse 78 | Temp (Src) 97.9 (Tympanic) | Resp 18 | Wt 265 lbs (120.203kg) | BMI 53.52 kg/m | BSA 2.24 m Physical Exam: General appearance - wheelchair bound large white female, alert, no distress Skin - Skin color, texture, turgor normal. No rashes or lesions Head - Normocephalic., No masses, lesions, tenderness or abnormalities. Eyes - Conjunctivae and corneas clear. PERRL, EOM's intact. Ears - External ears normal. Canals clear. TM's normal Nose/Sinuses - Nares normal. Septum midline. Mucosa pale and boggy. No drainage. Oropharynx - Lips, mucosa, and tongue normal. Oropharynx clear Neck - neck supple, no adenopathy, thyroid symmetric, normal size Back - No CVA tenderness Lungs - Lungs clear to auscultation Heart - RRR. No murmurs, clicks or rubs Abdomen - abdomen soft, non-tender, bowel sounds normal, no masses or hepatosplenomegaly Extremities - chronic lymphedema and stasis dermatitis Neuro - long-term stigmata of cerebral palsy hgba1c- 6.9, slightly higher, but resonable control of diabetes PRP- Looks good, except glucose is 168 LDL- 57 CBC- H/H improved from pre-op labs, WBC improved, but stiull mildly low at 3.90, platelet count still mildly low at 97,000, but improved A/P: D49.4 Bladder tumor (primary encounter diagnosis) No containdication to surgery- medically cleared as per senior staff specialized employment- copy of report forwarded to Dr. Simeon Escobar II and [facility]. Addendum: While note from surgeon 's office had previously been signed to allow patient to be off aspirin for10 days prior to the surgery, will addend this note that patient is okay to stop Aspirin 10 days prior to procedure date of 10/30/17. Begin Lantus 10 units daily in the evening. Prescription for Lantus pens and pen needles is done. Check basic metabolic panel, LDL, hemoglobin A1c, CBC today. Refill fluticasone nasal spray. PREVENTION REVIEWED WEIGHT AND BP CURVES GIVEN LAB FLOW SHEET GIVEN Z92.89 Chronic indwelling nova catheter N39.0 Recurrent uti Z01.810 Preoperative cardiovascular examination E11.9 Type 2 diabetes mellitus with hemoglobin a1c goal of less than 7.0% (hcc) Plan: Basic metab panel, bmp Ldl (direct measure) Hemoglobin a1c R73.9 Hyperglycemia D61.818 Pancytopenia (hcc) Plan: Cbc R09.81 Sinus congestion Plan: Fluticasone propionate 50 mcg/act na susp Sig:Administer 2 sprays into each nostril daily. G80.9 Cerebral palsy, unspecified type (hcc) I10 Htn, goal below 140/90 Plan: Basic metab panel, bmp Ldl (direct measure) M48.061 Spinal stenosis of lumbar region without neurogenic claudication Plan: Hydrocodone-acetaminophen 10-325 mg po tabs Sig:Take 1 tab by mouth 2 times a day as needed for pain. M51.36 Ddd (degenerative disc disease), lumbar Plan: Hydrocodone-acetaminophen 10-325 mg po tabs Sig:Take 1 tab by mouth 2 times a day as needed for pain. [id number] Medication use agreement Plan: Hydrocodone-acetaminophen 10-325 mg po tabs Sig:Take 1 tab by mouth 2 times a day as needed for pain. I have reviewed the patients controlled substance dispensing history in the Prescription Drug Monitoring Program in compliance with the [facility] regulations before prescribing a controlled substance. [...] Nursing Notes * Kiesha Schmitt LPN - 10/11/2017 12:42 PM EST Pre op assessment in this encounter Plan of Treatment Upcoming Encounters Date Type Specialty Care Team Description 10/17/2017 Office Visit Gynecology Obstetrics Alberta Gould, [facility]-C [address] [facility] [address] [phone] 11/08/2017 Office Visit [facility]enterology [facility]out [facility] [address] [facility] [address] [phone] 11/21/2017 Office Visit Family Practice Nancy Matute MD [address] [place], [place] [address] 11/28/2017 Office Visit Gastroenterology Gadiel Pathak MD [address] [place] [address] 03/20/2018 Office Visit Dermatology Rachel Hill MD [address] [place] [address] [phone] 08/07/2018 Office Visit Sleep Disorders Lanette Fields CRNP [address] [facility] [place] [address] [phone] [place], Nurse Sleep Disorders [address] [facility] [place] [address] [phone] Health Maintenance Due Date Last Done Comments [...] on fileas of this encounter Results * HEMOGLOBIN A1C (10/11/2017 1:18 PM) Component Value Ref Range HEMOGLOBIN, A1C 6.9(H) Comment: The use of HbA1c to monitor glycemic status is based on normal hemoglobin and HbA composition. This test should not be used in patients with abnormal hemoglobin that affects the half life of the red blood cell or the in vivo glycation rates. 4.0 - 6.4 % EST AVG GLUCOSE 151(H) <126 MG/DL Specimen Performing Laborator y [facility] [address] [place] [facility] [place] [address] * LDL (DIRECT MEASURE) (10/11/2017 1:18 PM) Component Value Ref Range LDL (DIRECT MEASURE) 57 Comment: LDL CHOLESTEROL REFERENCE RANGES(mg/dL) <100 OPTIMAL GOAL FOR HIGH RISK PATIENTS 100-129NEAR OR ABOVE NORMAL 130-159BORDERLINE HIGH 160-189HIGH >189 VERY HIGH 0 - 129 mg/dL Specimen Performing Laborator y [facility] [address] [place] [address] * BASIC METAB PANEL, BMP (10/11/2017 1:18 PM) Component Value Ref Range BUN 11 6 - 20 mg/dL CREATININE 0.7 Comment: GFR should be used to assess renal function.Plasma/Serum creatinine may not be able to properly reflect renal function in some cases. 0.5 - 1.0 mg/dL SODIUM 144 135 - 146 mmol/L POTASSIUM 4.1 3.5 - 5.1 mmol/L CHLORIDE 104 98 - 107 mmol/L CO2 27 22 - 32 mmol/L ANION GAP 13 7 - 15 mmol/L GLUCOSE 168(H) 70 - 120 mg/dL CALCIUM 9.3 8.4 - 10.2 mg/dL E GLOM FILT RATE >60.0Comment:If agustin ent is , multiply estimated GFR by 1.159. >60 Specimen Performing Laborator y [facility] [address] [place] [address] * CBC (10/11/2017 1:18 PM) Component Value Ref Range WBC 3.90(L) 4.00 - 10.80 K/u L RBC 4.03 3.85 - 5.15 M/uL HGB 12.1 12.0 - 15.3 g/dL HCT 39.3 36.0 - 45.2 % MCV 97.5 81.5 - 97.5 fL MCH 30.0 27.0 - 34.0 pg MCHC 30.8(L) 32.0 - 36.0 g/dL RDW 15.1 11.5 - 15.5 % PLATELET COUNT 97(L) 140 - 400 K/uL MPV 13.2(H) 6.6 - 11.1 fL Specimen Performing Laborator y [facility] [address] [place] [address] in this encounter Visit Diagnoses Diagnosis Bladder tumor - Primary Neoplasm of unspecified nature of bladder Chronic indwelling Nova cat heter Other postprocedural status Recurrent UTI Urinary tract infection, site not specified Preoperative cardiovascular examination Pre-operative cardiovascular examination Type 2 diabetes mellitus wit h hemoglobin A1c goal of less than 7.0% (HCC) Hyperglycemia Other abnormal glucose Pancytopenia (HCC) Other pancytopenia Sinus congestion Other diseases of nasal cavity and sinuses Cerebral palsy, unspecified type (HCC) HTN, goal below 140/90 Unspecified essential hypertension Spinal stenosis of lumbar re gion without neurogenic claudication Spinal stenosis, lumbar region, without neurogenic claudication DDD (degenerative disc disea se), lumbar Degeneration of lumbar or lumbosacral intervertebral disc MEDICATION USE AGREEMENT Body mass index (BMI) of 50. 0 to 59.9 in adult (HCC) in this encounter Insurance Payer Benefit Plan / Group Subscriber ID Type Phone Address [facility] [id number] [facility] [facility] [id number] [facility] [id number] as of this encounter"
--- OUTSIDE RECORDS SUMMARY | 2023-05-10 23:38 | External Medical Summary | Summary of Care ---
Author Name Unknown Organization [place] [address] Phone Care Team Providers Care Building Supervisor Name Role Phone Nancy Matute MD Primary Care Provider [phone] Reason for Visit * Reason Comments FORMS REQUEST Encounter Details Date Type Department Care Team Description 10/13/2017 Telephone [place] [address] [place] [address] Nancy Matute MD [address] [place] [address] [phone] FORMS REQUEST Allergies Active Allergy Reactions Severity [...] Inhaler 1 06/29/2016 Active Vitamin D, Ergocalciferol, 49446 UNITS CapsuleIndications:Vi tamin D deficiency 1capsule every other week 8 Cap 6 09/27/2016 Active potassium chloride ER 10 MEQ TBCRIndications:Hypok alemia Take 1 Tab by mouth 2 times a day. With food. 60 Tab 5 01/06/2017 Active Blood Glucose Monitoring Suppl (VyoptaTOUCH VERIO) W/DEVICE KITIndications:Type 2 diabetes mellitus with hemoglobin A1c goal of less than 7.0% (HCC) Use as directed. Use daily to check blood sugars DX:E11.9 1 Kit 0 01/17/2017 Active Glucose Blood (VyoptaTOUCH ULTRA BLUE) STRPIndications:Type 2 diabetes mellitus with [...] of less than 7.0% ([facility]) 10 units at bed time 5 Pre-filled Pen Syringe Dosing Unit 3 10/11/2017 Active Insulin Pen Needle 31G X 6 MM MISCIndications:Type 2 diabetes mellitus with hemoglobin A1c goal of less than 7.0% ([facility]) Use with Lantus Solostar at bedtime 30 Each 3 10/11/2017 Active nystatin 792152 UNIT/GM creamIndications:Cand idal vulvovaginitis Apply topically to [...] of 50.0 to 59.9 in adult ([facility]) 06/12/2017 Overview: Per Obesity protocol #1 Chronic [...] 03/27/2012 Cerebral palsy ([facility]) 01/24/2012 Obstructive sleep apnea 01/18/2011 Overview: 08/18/11 [...] chest pain 08/19/2016 01/17/2017 Hepatic cirrhosis ([facility]) 08/19/2016 03/28/20 [...] BMI > 40) ([facility]) 02/09/2015 03/28/2017 THAD (obstructive sleep apnea) [...] pain 01/24/2012 01/17/2017 Genetic Sleep Disorder Research Other*[id number] 05/13/2011 04/07/2016 Lumbosacral spondylosis 12/27/2010 05/25/20 12 [...] Telephone Encounter - Kiesha Schmitt LPN - 10/16/2017 4:23 PM EST Faxed to # noted. * Telephone Encounter - Nancy Matute MD [...] of office note from last week to [facility] for [facility]. Nancy Matute [...] signed and completed note be faxed to [phone]. in this encounter Plan of Treatment Upcoming Encounters Date Type Specialty Care Team Description 10/17/2017 Office Visit Gynecology Obstetrics Alberta Gould PA-C [address] [place] [address] [phone] 11/08/2017 Office Visit Gastroenterology Lyssa Stout CRNP [address] [place] [address] [phone] 11/21/2017 Office Visit Family Practice Nancy Matute MD [address] [place], [place] [address] 11/28/2017 Office Visit Gastroenterology Gadiel Pathak MD [address] [place] [address] 03/20/2018 Office Visit Dermatology Rachel Hill MD [address] [place] [address] [phone] 08/07/2018 Office Visit Sleep Disorders Lanette Fields CRNP [address] [place] [address] [phone] Nurse [place] Sleep Disorders [address] [place] [address] [phone] Health Maintenance Due Date Last Done Comments [...] [facility] [id number] [employer] [facility] [id number] [facility] [id number] as of this encounter
--- OUTSIDE RECORDS SUMMARY | 2023-05-10 23:38 | External Medical Summary | Summary of Care ---
Author Name Unknown Organization [place] [address] Phone Care Team Providers Care Interior Design Coordinator Name Role Phone Nancy Matute MD Primary Care Provider [phone] Encounter Details Date Type Department Care Team Description 10/19/2017 Orders Only [place] [address] [place] [address] Nancy Matute MD [address] [place] [address] [phone] Allergies Active Allergy Reactions Severity Noted Date [...] Inhaler 1 06/29/2016 Active Vitamin D, Ergocalciferol, 37531 UNITS CapsuleIndications:Vi tamin D deficiency 1capsule every other week 8 Cap 6 09/27/2016 Active potassium chloride ER 10 MEQ TBCRIndications:Hypok alemia Take 1 Tab by mouth 2 times a day. With food. 60 Tab 5 01/06/2017 Active Blood Glucose Monitoring Suppl (Regulus TherapeuticsTOUCH VERIO) W/DEVICE KITIndications:Type 2 diabetes mellitus with hemoglobin A1c goal of less than 7.0% (HCC) Use as directed. Use daily to check blood sugars DX:E11.9 1 Kit 0 01/17/2017 Active Glucose Blood (Regulus TherapeuticsTOUCH ULTRA BLUE) STRPIndications:Type 2 diabetes mellitus [...] Dosing Unit 11 01/17/2017 Active Glucose Blood (Regulus TherapeuticsTOUCH VERIO) STRP Use up to four [...] 7.0% ([facility]) 10 units at bed time 5 Pre-filled Pen Syringe Dosing Unit 3 10/11/2017 Active Insulin Pen Needle 31G X 6 MM MISCIndications:Type 2 diabetes mellitus with hemoglobin A1c goal of less than 7.0% ([facility]) Use with Lantus Solostar at bedtime 30 Each 3 10/11/2017 Active nystatin 665944 UNIT/GM creamIndications:Cand idal vulvovaginitis Apply topically to affected area 2 times a day. To affacted area for two weeks. 15 g 2 10/12/2017 Active Blood Glucose Monitoring Suppl (Regulus TherapeuticsTOUCH VERIO) w/Device KITIndications:Type 2 diabetes mellitus with hemoglobin A1c goal of less than 7.0% ([facility]) Use up to 4 times a day E11.9 1 Kit 0 10/17/2017 Active as of this encounter Active Problems Problem Noted Date Bladder tumor 10/11/2017 Chronic indwelling Cline catheter 2017 Recurrent UTI 10/11/2017 Preoperative cardiovascular examination 10/11/2017 History of Clostridium difficile colitis 08/29/2017 Debility 07/19/2017 Body mass index (BMI) of 50.0 to 59.9 in adult ([facility]) 06/12/2017 Overview: Per Obesity protocol #1 Chronic [...] 140/90 03/27/2012 Chronic rhinitis 03/27/2012 Cerebral palsy ([facility]) 01/24/2012 Obstructive sleep apnea 01/18/2011 Overview: 08/18/11 [...] Atypical chest pain 08/19/2016 01/17/2017 Hepatic cirrhosis ([facility] [...] pain 01/24/2012 01/17/2017 Genetic Sleep Disorder Research Other*[id number] 05/13/2011 04/07/2016 Lumbosacral spondylosis 12/27/2010 05/25/20 12 [...] Visit Gynecology Obstetrics Renetta Martinez MD [address] [facility] [place] [address] [phone] 11/08/2017 Office Visit Gastroenterology Lyssa Stout CRNP [address] [facility] [place] [address] [phone] 11/21/2017 Office Visit Family Practice Nancy Matute MD [address] [place], [place] [address] 11/28/2017 Office Visit Gastroenterology Gadiel Pathak MD [address] [place] [address] 03/20/2018 Office Visit Dermatology Rachel Hill MD [address] [place] [address] [phone] 08/07/2018 Office Visit Sleep Disorders Lanette Fields CRNP [address] [facility] [place] [address] [phone] Nurse [facility] Sleep Disorders [address] [facility] [address] [phone] Pending Results Name Priority Associated Diagnoses Date/Ti me CHEMISTRY-OUTSIDE Routine 10/18/2017 12:00 AM EST Health Maintenance [...] Group Subscriber ID Type Phone Address BLUE [facility] [id number] [employer] [id number] [facility] [id number] as of this encounter
--- OUTSIDE RECORDS SUMMARY | 2023-05-10 23:38 | External Medical Summary | Summary of Care ---
Author Name Unknown Organization [place] [address] Phone Care Team Providers Care Healthcare Recruiter Name Role Phone Nancy Matute MD Primary Care Provider [phone] Reason for Visit * Reason Comments ADVICE Encounter Details Date Type Department Care Team Description 10/17/2017 Telephone [place] [address] [place] [address] Nancy Matute MD [address] [place] [address] [phone] ADVICE Allergies Active Allergy Reactions Severity Noted [...] Inhaler 1 06/29/2016 Active Vitamin D, Ergocalciferol, 20851 UNITS CapsuleIndications:Vi tamin D deficiency 1capsule every other week 8 Cap 6 09/27/2016 Active potassium chloride ER 10 MEQ TBCRIndications:Hypok alemia Take 1 Tab by mouth 2 times a day. With food. 60 Tab 5 01/06/2017 Active Blood Glucose Monitoring Suppl ([facility] VERIO) W/DEVICE KITIndications:Type 2 diabetes mellitus with hemoglobin A1c goal of less than 7.0% (HCC) Use as directed. Use daily to check blood sugars DX:E11.9 1 Kit 0 01/17/2017 Active Glucose Blood (Gather.mdTOUCH ULTRA BLUE) STRPIndications:Type 2 diabetes mellitus with [...] of less than 7.0% ([facility]) 10 units at bed time 5 Pre-filled Pen Syringe Dosing Unit 3 10/11/2017 Active Insulin Pen Needle 31G X 6 MM MISCIndications:Type 2 diabetes mellitus with hemoglobin A1c goal of less than 7.0% ([facility]) Use with Lantus Solostar at bedtime 30 Each 3 10/11/2017 Active nystatin 808209 UNIT/GM creamIndications:Cand idal vulvovaginitis Apply topically to affected area 2 times a day. To affacted area for two weeks. 15 g 2 10/12/2017 Active Blood Glucose Monitoring Suppl (ONETOUCH VERIO) w/Device KITIndications:Type 2 diabetes mellitus with hemoglobin A1c goal of less than 7.0% ([facility]) Use up to 4 times a day E11.9 1 Kit 0 10/17/2017 Active as of this encounter Active Problems Problem Noted Date Bladder tumor 10/11/2017 Chronic indwelling Cline catheter 2017 Recurrent UTI 10/11/2017 Preoperative cardiovascular examination 10/11/2017 History of Clostridium difficile colitis 08/29/2017 Debility 07/19/2017 Body mass index (BMI) of 50.0 to 59.9 in adult ([facility]) 06/12/2017 Overview: Per Obesity protocol #1 Chronic [...] 03/27/2012 Cerebral palsy ([facility]) 01/24/2012 Obstructive sleep apnea 01/18/2011 Overview: [...] pain 08/19/2016 01/17/2017 Hepatic cirrhosis ([facility]) 08/19/2016 03/28/20 [...] pain 01/24/2012 01/17/2017 Genetic Sleep Disorder Research Other*[id number] 05/13/2011 04/07/2016 Lumbosacral spondylosis 12/27/2010 05/25/20 12 [...] Telephone Encounter - Nancy Matute MD - 10/17/2017 11:24 AM EST Signed. Nancy Matute MD * Telephone Encounter - Janett Petit, SERVICE CENTER MANAGER - 10/17/2017 10:25 AM EST Called and spoke with pt to see what kind of meter she has. Pt has onetouch verio. New script pending. * Telephone Encounter - Miguel Quyen Glover, THAD - 10/17/2017 10:17 AM EST Patient calling in stating that her glucose meter was dropped and it keeps stating that it needs more blood and is unable to read her BSG. Patient is requesting a new meter be sent to her pharmacy. Please advise. in this encounter Plan of Treatment Upcoming Encounters Date Type Specialty Care Team Description 11/02/2017 Office Visit Gynecology Obstetrics Renetta Martinez MD [address] [place] [address] [phone] 11/08/2017 Office Visit Gastroenterology Lyssa Stout CRNP [address] [place] [address] [phone] 11/21/2017 Office Visit Family Practice Nancy Matute MD [address] [place] [address] 11/28/2017 Office Visit Gastroenterology Gadiel Pathak MD [address] [place] [address] 03/20/2018 Office Visit Dermatology Rachel Hill MD [address] [place] [address] [phone] 08/07/2018 Office Visit Sleep Disorders Lanette Fields CRNP [address] [place] [address] [phone] Kentrell, Nurse Sleep Disorders [address] [place] [address] [phone] Health Maintenance Due Date Last Done Comments [...] Group Subscriber ID Type Phone Address BLUE [facility] BLUE [facility] [id number] [employer] [id number] [facility] [id number] as of this encounter
--- OUTSIDE RECORDS SUMMARY | 2023-05-10 23:38 | External Medical Summary | Summary of Care ---
Author Name Unknown Organization [place] [address] Phone Care Team Providers Care Control Panel Operator Crude Unit Name Role Phone Nancy Matute MD Primary Care Provider [phone] Reason for Visit * Reason Comments FORMS REQUEST Encounter Details Date Type Department Care Team Description 10/19/2017 Telephone [place] [place] [address] Nancy Matute MD [address] [place] [address] [phone] FORMS REQUEST Allergies Active Allergy Reactions Severity [...] Inhaler 1 06/29/2016 Active Vitamin D, Ergocalciferol, 42538 UNITS CapsuleIndications:Vi tamin D deficiency 1capsule every other week 8 Cap 6 09/27/2016 Active potassium chloride ER 10 MEQ TBCRIndications:Hypok alemia Take 1 Tab by mouth 2 times a day. With food. 60 Tab 5 01/06/2017 Active Blood Glucose Monitoring Suppl (FliqqTOUCH VERIO) W/DEVICE KITIndications:Type 2 diabetes mellitus with hemoglobin A1c goal of less than 7.0% (HCC) Use as directed. Use daily to check blood sugars DX:E11.9 1 Kit 0 01/17/2017 Active Glucose Blood (FliqqTOUCH ULTRA BLUE) STRPIndications:Type 2 diabetes mellitus with [...] bedtime 30 Each 3 10/11/2017 Active nystatin 964530 UNIT/GM creamIndications:Cand idal vulvovaginitis Apply topically to [...] (BMI) of 50.0 to 59.9 in adult ([facility]) 06/12/2017 Overview: Per Obesity protocol [...] pain 01/24/2012 01/17/2017 Genetic Sleep Disorder Research Other*[id number] 05/13/2011 04/07/2016 Lumbosacral spondylosis 12/27/2010 05/25/20 12 [...] Telephone Encounter - Michaelle Lindquist LPN - 10/19/2017 9:33 AM EST VNA form placed on Dr Land desector for review and signature. in this encounter Plan of Treatment Upcoming Encounters Date Type Specialty Care Team Description 11/02/2017 Office Visit Gynecology Obstetrics Renetta Martinez MD 132 [facility] [place] [address] [phone] 11/08/2017 Office Visit Gastroenterology Lyssa Stout CRNP [address] [facility] [place] [address] [phone] 11/21/2017 Office Visit Family Practice Nancy Matute MD [address] [place] [address] [phone] 11/28/2017 Office Visit Gastroenterology Gadiel Pathak MD [address] [place] [address] 03/20/2018 Office Visit Dermatology Rachel Hill MD [address] [place] [address] [phone] 08/07/2018 Office Visit Sleep Disorders Lanette Fields CRNP 132 [facility] [place] [address] [phone] Nurse Kentrell Sleep Disorders 132 [facility] [place] [address] [phone] Health Maintenance Due Date Last Done Comments [...] Group Subscriber ID Type Phone Address BLUE [facility] [id number] [employer] [id number] [facility] [id number] as of this encounter
--- OUTSIDE RECORDS SUMMARY | 2023-05-10 23:38 | External Medical Summary | Summary of Care ---
Author Name Unknown Organization [place] [address] Phone Care Team Providers Care Undercover Cop Name Role Phone Nancy Matute MD Primary Care Provider [phone] Reason for Visit * Reason Comments FORMS REQUEST [facility] care Encounter Details Date Type Department Care Team Description 10/27/2017 Telephone [place] [address] [place] [address] Nancy Matute MD [address] [place] [address] [phone] FORMS REQUEST ([facility]) Allergies Active Allergy Reactions Severity Noted Date [...] Inhaler 1 06/29/2016 Active Vitamin D, Ergocalciferol, 80331 UNITS CapsuleIndications:Vi tamin D deficiency 1capsule every [...] bedtime 30 Each 3 10/11/2017 Active nystatin 637093 UNIT/GM creamIndications:Cand idal vulvovaginitis Apply topically to [...] pain 01/24/2012 01/17/2017 Genetic Sleep Disorder Research Other*[id number] 05/13/2011 04/07/2016 Lumbosacral spondylosis 12/27/2010 05/25/20 12 [...] Telephone Encounter - Nancy Matute MD - 10/27/2017 12:40 PM EST Signed. Nancy Matute MD * Telephone Encounter - Michaelle Lindquist LPN - 10/27/2017 11:56 AM EST Placed on Dr Land desk for review and signature. * Telephone Encounter - Dulce Call THAD - 10/27/2017 8:55 AM EST phy Therapy Assessment, In Matute Bin For Sig. in this encounter Plan of Treatment Upcoming Encounters Date Type Specialty Care Team Description 11/02/2017 Office Visit Gynecology Obstetrics Renetta Martinez MD 132 [facility] [place] [address] [phone] 11/08/2017 Office Visit [facility]ology [facility] [address] [facility] [address] [phone] 11/21/2017 Office Visit Family Practice Nancy Matute MD [address] [place], [place] [address] 11/28/2017 Office Visit Gastroenterology Gadiel Pathak MD [address] [place], [place] [address] 03/20/2018 Office Visit Dermatology Rachel Hill MD [address] [place] [address] [phone] 08/07/2018 Office Visit Sleep Disorders Lanette Fields CRNP [address] [facility] [place] [address] [phone] Kentrell Nurse Sleep Disorders 132 [facility] [place] [address] [phone] Health Maintenance Due Date Last Done Comments Yearly B-12 1955 DTaP,Tdap,and Td Vaccines (1 - Tdap) 1962 DIABETES-EYE EXAM 1973 BREAST CANCER SCREENING DISCUSSION [...] ID Type Phone Address [facility] [id number] [employer] [id number] [facility] [id number] as of this encounter
--- OUTSIDE RECORDS SUMMARY | 2023-05-10 23:38 | External Medical Summary | Summary of Care ---
Author Name Unknown Organization [place] [address] Phone Care Team Providers Care Regional Sales Manager Name Role Phone Nancy Matute MD Primary Care Provider [phone] Encounter Details Date Type Department Care Team Description 10/20/2017 Result Scan Unspecified Department <No scans attached> [...] Inhaler 1 06/29/2016 Active Vitamin D, Ergocalciferol, 05656 UNITS CapsuleIndications:Vi tamin D deficiency 1capsule every [...] bedtime 30 Each 3 10/11/2017 Active nystatin 296127 UNIT/GM creamIndications:Cand idal vulvovaginitis Apply topically to affected area 2 times a day. To affacted area for two weeks. 15 g 2 10/12/2017 Active Blood Glucose Monitoring Suppl ([employer] VERIO) w/Device KITIndications:Type 2 diabetes mellitus with [...] pain 01/24/2012 01/17/2017 Genetic Sleep Disorder Research Other*[id number] 05/13/2011 04/07/2016 Lumbosacral spondylosis 12/27/2010 05/25/20 12 [...] Gynecology Obstetrics Renetta Martinez MD [address] [place] [address] [phone] 11/08/2017 Office Visit Gastroenterology Lyssa Stout CRNP [address] [place] [address] [phone] 11/21/2017 Office Visit Family Practice Nancy Matute MD [address] [place], [place] [address] 11/28/2017 Office Visit Gastroenterology Gadiel Pathak MD [address] [place] [facility] [place] [address] 03/20/2018 Office Visit Dermatology Rachel Hill MD [address] [place] [address] [phone] 08/07/2018 Office Visit Sleep Disorders Lanette Fields CRNP [address] [facility] [place] [address] [phone] Kentrell Nurse Sleep Disorders [address] [facility] [address] [phone] Health Maintenance Due Date Last Done Comments [...] this encounter Results * OUTSIDE LAB RESULTS (10/20/2017) in this encounter Insurance Payer Benefit Plan / Group Subscriber ID Type Phone Address [facility] [id number] [employer] [id number] [facility] [id number] as of this encounter
--- OUTSIDE RECORDS SUMMARY | 2023-05-10 23:39 | External Medical Summary ---
Author Name Unknown Address [address] [place] [address] Phone Organization K01:[facility] [address] [place] [id number] Laboratory Report Ordering Provider Test Date Status ALEJANDRA Cruz 10/11/2017 13:18:00 Final Observation Date Value Abnormality Reference Status LDL, (direct) 10/11/2017 22:23 57 0-129 Final Performing Location [facility] [address] [facility] [address]
--- OUTSIDE RECORDS SUMMARY | 2023-05-10 23:39 | External Medical Summary ---
Author Name Unknown Address [facility] [address] [facility] [place] [facility] Phone Organization K01:[facility] [address] [facility] [place] [address] Laboratory Report Ordering Provider Test Date Status ALEJANDRA Cruz 10/11/2017 13:18:00 Final Observation Date Value Abnormality Reference Status BUN 10/11/2017 22:23 11 6-20 Fin al Creatinine 10/11/2017 22:23 0.7 0.5-1.0 Fi nal Performing Location [facility] [address] [facility] [address]
--- OUTSIDE RECORDS SUMMARY | 2023-05-10 23:39 | External Medical Summary | Summary of Care ---
Author Name Unknown Organization [place] [address] Phone Care Team Providers Care Blind Installer Name Role Phone Nancy Matute MD Primary Care Provider [phone] Reason for Visit * Reason Comments MEDICATION QUESTION Encounter Details Date Type Department Care Team Description 10/12/2017 Telephone [address] [place] [address] Nancy Matute MD [address] [place] [address] [phone] MEDICATION QUESTION Allergies Active Allergy Reactions Severity [...] Inhaler 1 06/29/2016 Active Vitamin D, Ergocalciferol, 10666 UNITS CapsuleIndications:Vi tamin D deficiency 1capsule every other week 8 Cap 6 09/27/2016 Active potassium chloride ER 10 MEQ TBCRIndications:Hypok alemia Take 1 Tab by mouth 2 times a day. With food. 60 Tab 5 01/06/2017 Active Blood Glucose Monitoring Suppl ([employer] CorporationTOUCH VERIO) W/DEVICE KITIndications:Type 2 diabetes mellitus with hemoglobin A1c goal of less than 7.0% (HCC) Use as directed. Use daily to check blood sugars DX:E11.9 1 Kit 0 01/17/2017 Active Glucose Blood ([employer] CorporationTOUCH ULTRA BLUE) STRPIndications:Type 2 diabetes mellitus with [...] than 7.0% ([facility]) 10 units at bed time 5 Pre-filled Pen Syringe Dosing Unit 3 10/11/2017 Active Insulin Pen Needle 31G X 6 MM MISCIndications:Type 2 diabetes mellitus with hemoglobin A1c goal of less than 7.0% ([facility]) Use with Lantus Solostar at bedtime 30 Each 3 10/11/2017 Active nystatin 093074 UNIT/GM creamIndications:Cand idal vulvovaginitis Apply topically to [...] 50.0 to 59.9 in adult ([facility]) 06/12/2017 Overview: Per Obesity protocol [...] palsy ([facility]) 01/24/2012 Obstructive sleep apnea 01/18/2011 [...] pain 08/19/2016 01/17/2017 Hepatic cirrhosis ([facility]) [...] pain 01/24/2012 01/17/2017 Genetic Sleep Disorder Research Other*[id number] 05/13/2011 04/07/2016 Lumbosacral spondylosis 12/27/2010 05/25/20 12 [...] Telephone Encounter - Susan Rosales RN - 10/13/2017 11:23 AM EST Called patient Dr. Matute started her on insulin on 10/11/17 * Telephone Encounter - Susan Rosales RN - 10/12/2017 2:49 PM EST Left message for patient to return call triage see message below * Telephone Encounter - Brianne Pal PA-C - 10/12/2017 2:21 PM EST Formatting of this note may be different from the original. Component Latest Ref Rng & Units 10/11/2017 WBC 4.00 - 10.80 K/uL 3.90 (L) RBC 3.85 - 5.15 M/uL 4.03 HGB 12.0 - 15.3 g/dL 12.1 HCT 36.0 - 45.2 % 39.3 MCV 81.5 - 97.5 fL 97.5 MCH 27.0 - 34.0 pg 30.0 MCHC 32.0 - 36.0 g/dL 30.8 (L) RDW 11.5 - 15.5 % 15.1 PLATELET COUNT 140 - 400 K/uL 97 (L) MPV 6.6 - 11.1 fL 13.2 (H) BUN 6 - 20 mg/dL 11 CREATININE 0.5 - 1.0 mg/dL 0.7 SODIUM 135 - 146 mmol/L 144 POTASSIUM 3.5 - 5.1 mmol/L 4.1 CHLORIDE 98 - 107 mmol/L 104 CO2 22 - 32 mmol/L 27 ANION GAP 7 - 15 mmol/L 13 GLUCOSE 70 - 120 mg/dL 168 (H) CALCIUM 8.4 - 10.2 mg/dL 9.3 E GLOM FILT RATE >60 >60.0 HEMOGLOBIN, A1C 4.0 - 6.4 % 6.9 (H) EST AVG GLUCOSE <126 MG/DL 151 (H) LDL (DIRECT MEASURE) 0 - 129 mg/dL 57 Pt is diabetic so yes will need meds- a1c was actually worse than it had been. Hemoglobin AIC Results: HEMOGLOBIN, A1C(%) Lucio Dt/Tm Resulted Value Status 10/11/17 1:18P 1/31/18 6.9* FINAL 03/28/17 3:31P 03/28/17 6.6* FINAL 02/01/17 11:19A 02/01/17 6.9* FINAL She should cont her meds and f/u with pcp Brianne Pal PA-C * Telephone Encounter - Susan Rosales RN - 10/12/2017 1:59 PM EST Labs in epic Matute ordered Will anyone address or wait on Matutemonday * Telephone Encounter - Savi Bernal, match marker - 10/12/2017 12:18 PM EST Pt is wondering if someone can let her know about her blood work she had and whether or not she will need diabetic meds or any of her meds going forward. Thanks, Savi Bernal Recruiting Scheduler Pharmacy Refill Call Center 10/12/2017,12:19 PM in this encounter Plan of Treatment Upcoming Encounters Date Type Specialty Care Team Description 10/17/2017 Office Visit Gynecology Obstetrics Alberta Gould PA-C [address] [place] [address] [phone] 11/08/2017 Office Visit Gastroenterology Lyssa Stout CRNP [address] [place] [address] [phone] 11/21/2017 Office Visit Family Practice Nancy Matute MD [address] [place], [place] [address] 11/28/2017 Office Visit Gastroenterology Gadiel Pathak MD [address] [place] [address] 03/20/2018 Office Visit Dermatology Rachel Hill MD [address] [place] [address] [phone] 08/07/2018 Office Visit Sleep Disorders Lanette Fields CRNP [address] [place] [address] [phone] Kentrell, Nurse Sleep Disorders [address] [place] [address] [phone] Health Maintenance Due Date Last Done Comments [...] TEST IN LAST 6 MONTHS-ADULT Completed 12/09/2015 *ASTHMA ACTION PLAN-ADULT YEARLY Addressed 06/07/2016 (Discussed), 12/09/2014 Overridden with the intention of not completing the topic Influenza Vaccine (FLU shot) Completed 07/10/2017, 06/07/2016, 05/22/2015, Additional history exists as of this encounter Implants Not on fileas of this encounter Insurance Payer Benefit Plan / Group Subscriber ID Type Phone Address [facility] [id number] [employer] [id number] [facility] [id number] as of this encounter
--- OUTSIDE RECORDS SUMMARY | 2023-05-10 23:39 | External Medical Summary | Summary of Care ---
Author Name Unknown Organization [place] [address] Phone Care Team Providers Care Veneer Clipper Name Role Phone Nancy Matute MD Primary Care Provider [phone] Reason for Visit * Reason Comments MEDICATION QUESTION Encounter Details Date Type Department Care Team Description 10/12/2017 Telephone [id number] [place] [address] Nancy Matute MD [address] [place] [address] [phone] MEDICATION QUESTION Allergies Active Allergy Reactions Severity [...] Inhaler 1 06/29/2016 Active Vitamin D, Ergocalciferol, 88185 UNITS CapsuleIndications:Vi tamin D deficiency 1capsule every other week 8 Cap 6 09/27/2016 Active potassium chloride ER 10 MEQ TBCRIndications:Hypok alemia Take 1 Tab by mouth 2 times a day. With food. 60 Tab 5 01/06/2017 Active Blood Glucose Monitoring Suppl (InStaffTOUCH VERIO) W/DEVICE KITIndications:Type 2 diabetes mellitus with hemoglobin A1c goal of less than 7.0% (HCC) Use as directed. Use daily to check blood sugars DX:E11.9 1 Kit 0 01/17/2017 Active Glucose Blood (InStaffTOUCH ULTRA BLUE) STRPIndications:Type 2 diabetes mellitus with [...] bedtime 30 Each 3 10/11/2017 Active nystatin 021319 UNIT/GM creamIndications:Cand idal vulvovaginitis Apply topically to [...] pain 01/24/2012 01/17/2017 Genetic Sleep Disorder Research Other*[id number] 05/13/2011 04/07/2016 Lumbosacral spondylosis 12/27/2010 05/25/20 12 [...] Telephone Encounter - Michaelle Lindquist LPN - 10/16/2017 8:55 AM EST Patient aware of results. * Telephone Encounter - Nancy Matute MD - 10/15/2017 3:21 PM EST For please notify patient- Chemistry panel looks good except glucose mildly high at 168. Hemoglobin is 6.9. Not bad but not as good as previous levels. Begin Lantus, as discussed at officevisit. Blood counts overall are significantly improved from preop labs done at the hospital. Medical clearance sent to urology specialist and surgical center. Nancy Matute MD * Telephone Encounter - [...] - 10/12/2017 1:59 PM EST Labs in [facility] ordered Will anyone address or wait on Matute Monday * Telephone Encounter - Savi Bernal lehr attendant - 10/12/2017 12:18 PM EST Pt is wondering if someone can let her know about her blood work she had and whether or not she will need diabetic meds or any of her meds going forward. Thanks, Savi Bernal Obstetrics Gynecology Md Pharmacy Refill Call Center 10/12/2017,12:19 PM in this encounter Plan of Treatment Upcoming Encounters Date Type Specialty Care Team Description 10/17/2017 Office Visit Gynecology Obstetrics Alberta Gould, PARominaC [address] [place] [address] [phone] 11/08/2017 Office Visit Gastroenterology Lyssa Stout CRNP [address] [place] [address] [phone] 11/21/2017 Office Visit Family Practice Nancy Matute MD [address] [place] [address] [phone] 11/28/2017 Office Visit Gastroenterology Gadiel Pathak MD [address] [facility] [place] [address] [phone] 03/20/2018 Office Visit Dermatology Rachel Hill MD 200 [place] [address] [phone] 08/07/2018 Office Visit Sleep Disorders Lanette Fields CRNP [address] [place] [address] [phone] Kentrell, Nurse Sleep Disorders 132 [facility] [place] [address] [phone] Health Maintenance Due Date Last Done Comments [...] / Group Subscriber ID Type Phone Address [facility] [id number] AETNA AETNA [facility] [id number] [facility] [id number] as of this encounter
--- OUTSIDE RECORDS SUMMARY | 2023-05-10 23:39 | External Medical Summary | Summary of Care ---
Author Name Unknown Organization [place] [address] Phone Care Team Providers Care Contact And Service Clerks Supervisor Name Role Phone Nancy Matute MD Primary Care Provider [phone] Reason for Visit * Reason Comments Preop Pt Assessment Encounter Details Date Type Department Care Team Description 10/11/2017 Office Visit [address] [address] Nancy Matute MD [address] [place] [address] [phone] Bladder tumor*;Chronic indwelling Nova catheter;Recurrent UTI;Preoperative cardiovascular examination;Type 2 diabetes mellitus with hemoglobin A1c goal of less than 7.0% ([facility]);Hyperglycemia;Panc ytopenia ([facility]);Sinus congestion;Cerebral palsy, unspecified type ([facility]);HTN, goal below 140/90;Spinal stenosis of lumbar region [...] Inhaler 1 06/29/2016 Active Vitamin D, Ergocalciferol, 29324 UNITS CapsuleIndications: Vitamin D deficiency 1capsule every other week 8 Cap 6 09/27/2016 Active potassium chloride ER 10 MEQ TBCRIndications:Hyp okalemia Take 1 Tab by mouth 2 times a day. With food. 60 Tab 5 01/06/2017 Active Blood Glucose Monitoring Suppl ([place] MetechUCH VERIO) W/DEVICE KITIndications:Type 2 diabetes mellitus with hemoglobin A1c goal of less than 7.0% (HCC) Use as directed. Use daily to check blood sugars DX:E11.9 1 Kit 0 01/17/2017 Active Glucose Blood (RealmTOUCH ULTRA BLUE) STRPIndications:Typ e 2 diabetes mellitus [...] Cap 5 07/19/2017 10/11/19 18 Discontinued nystatin 778388 UNIT/GM creamIndications:Ca ndidal vulvovaginitis Apply topically to [...] pain 01/24/2012 01/17/2017 Genetic Sleep Disorder Research Other*[id number] 05/13/2011 04/07/2016 Lumbosacral spondylosis 12/27/2010 05/25/20 12 [...] this is dusky was done. Did see securities supervisor for cardiac clearance earlier this month. 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 30 Tab 0 nystatin 051530 UNIT/GM cream Apply topically to affected area [...] nebulizer 180 mL 0 Vitamin D, Ergocalciferol, 26940 UNITS Capsule 1capsule every other week 8 [...] DIAGNOSTIC (RECTUM) 10/04/2016 normal bx, repeat 10 yrs/[facility] DENTAL SURGERY PROCEDURE NEC wisdom teeth x 4 DILATION AND CURETTAGE (D&C) EGD, FLEXIBLE, DIAGNOSTIC 10/04/2016 gastritis/[facility] PELVIS/HIP JOINT SURGERY NEC [...] containdication to surgery- medically cleared as per securities supervisor- copy of report forwarded to Dr. Simeon Escobar II and surgicalcenter. Begin Lantus 10 units daily in the [...] times a day as needed for pain. [id number] Medication use agreement Plan: Hydrocodone-acetaminophen 10-325 mg [...] Visit Gynecology Obstetrics Alberta Gould, PA-C [address] [place] [address] [phone] 11/08/2017 Office Visit Gastroenterology Lyssa Stout CRNP [address] [facility] [place] [address] [phone] 11/21/2017 Office Visit Family Practice Nancy Matute MD [address] [place], [place] [address] 11/28/2017 Office Visit Gastroenterology Gadiel Pathak MD [address] [place] [address] 03/20/2018 Office Visit Dermatology Rachel Hill MD [address] [place] [address] [phone] 08/07/2018 Office Visit Sleep Disorders Lanette Fields CRNP 132 [facility] [place] [address] [phone] Kentrell, Nurse Sleep Disorders [address] [facility] [place] [address] [phone] Health Maintenance Due Date Last Done Comments [...] 151(H) <126 MG/DL Specimen Performing Laborator y [facility] [address] [address] [place] [address] * LDL (DIRECT MEASURE) (10/11/2017 1:18 PM) Component Value Ref Range LDL (DIRECT MEASURE) 57 Comment: LDL CHOLESTEROL REFERENCE RANGES(mg/dL) <100 OPTIMAL GOAL FOR HIGH RISK PATIENTS 100-129NEAR OR ABOVE NORMAL 130-159BORDERLINE HIGH 160-189HIGH >189 VERY HIGH 0 - 129 mg/dL Specimen Performing Laborator y [facility] [address] [place] [address] * BASIC METAB PANEL, BMP (10/11/2017 1:18 [...] by 1.159. >60 Specimen Performing Laborator y [address] [address] * CBC (10/11/2017 1:18 PM) Component Value [...] - 11.1 fL Specimen Performing Laborator y [address] [address] in this encounter Visit Diagnoses Diagnosis Bladder [...] Phone Address [facility] [id number] AETNA [facility] [id number] [facility] [id number] as of this encounter"
--- OUTSIDE RECORDS SUMMARY | 2023-05-10 23:39 | External Medical Summary | Summary of Care ---
Author Name Unknown Organization [place] [address] Phone Care Team Providers Care Auto Machinist Name Role Phone Nancy Matute MD Primary Care Provider [phone] Reason for Visit * Reason Comments Preop Pt Assessment Encounter Details Date Type Department Care Team Description 10/11/2017 Office Visit [address] [address] Nancy Matute MD [address] [place] [address] [phone] Bladder tumor*;Chronic indwelling Nova catheter;Recurrent UTI;Preoperative cardiovascular examination;Type 2 diabetes mellitus with hemoglobin A1c goal of less than 7.0% ([facility]);Hyperglycemia;Panc ytopenia ([facility]);Sinus congestion;Cerebral palsy, unspecified type ([facility]);HTN, goal below 140/90;Spinal stenosis of lumbar region [...] Inhaler 1 06/29/2016 Active Vitamin D, Ergocalciferol, 12273 UNITS CapsuleIndications: Vitamin D deficiency 1capsule every other week 8 Cap 6 09/27/2016 Active potassium chloride ER 10 MEQ TBCRIndications:Hyp okalemia Take 1 Tab by mouth 2 times a day. With food. 60 Tab 5 01/06/2017 Active Blood Glucose Monitoring Suppl (Origami EnergyUCH VERIO) W/DEVICE KITIndications:Type 2 diabetes mellitus with hemoglobin A1c goal of less than 7.0% (HCC) Use as directed. Use daily to check blood sugars DX:E11.9 1 Kit 0 01/17/2017 Active Glucose Blood (AOBiomeTOUCH ULTRA BLUE) STRPIndications:Typ e 2 diabetes mellitus [...] Cap 5 07/19/2017 10/11/19 18 Discontinued nystatin 295521 UNIT/GM creamIndications:Ca ndidal vulvovaginitis Apply topically to affected area 2 times a day. To affacted area for two weeks. 15 g 2 08/24/2017 10/12/19 18 Discontinued Hydrocodone-Acetami nophen (NORCO) 10-325 MG per tabletIndications:S jennfier stenosis of lumbar region without neurogenic claudication,DDD [...] pain 01/24/2012 01/17/2017 Genetic Sleep Disorder Research Other*[id number] 05/13/2011 04/07/2016 Lumbosacral spondylosis 12/27/2010 05/25/20 12 [...] this is dusky was done. Did see forging die sinker for cardiac clearance earlier this month. 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 30 Tab 0 nystatin 632263 UNIT/GM cream Apply topically to affected area [...] nebulizer 180 mL 0 Vitamin D, Ergocalciferol, 85053 UNITS Capsule 1capsule every other week 8 [...] EGD, FLEXIBLE, DIAGNOSTIC 10/04/2016 gastritis/[facility] PELVIS/HIP JOINT SURGERY NEC teenager aid in walking REPAIR/[employer]ON age 40 aid in walking Review of patient's allergies indicates: Allergen Reactions Pcn [Penicillins] Rash Family History Problem Relation Age of Onset Heart Disorder Father of [place] at age 61 Heart Disorder Mother of [place] age 72 Diabetes Father Cancer None Arthritis [...] containdication to surgery- medically cleared as per forging die sinker- copy of report forwarded to Dr. Simeon [...] times a day as needed for pain. MI0631 Medication use agreement Plan: Hydrocodone-acetaminophen 10-325 mg po tabs Sig:Take 1 tab by mouth 2 times a day as needed for pain. I have reviewed the patients controlled substance dispensing history in the Prescription Drug Monitoring Program in compliance with the [facility] regulations before prescribing a controlled substance. [...] Visit Gynecology Obstetrics Alberta Gould, PA-C [address] [facility] [facility] [address] [phone] 11/08/2017 Office Visit Gastroenterology Lyssa Stout CRNP [address] [facility] [address] [phone] 11/21/2017 Office Visit Family Practice Nancy Matute MD [address] [place], [place] [address] 11/28/2017 Office Visit Gastroenterology Gadiel Pathak MD [address] [place] [address] 03/20/2018 Office Visit Dermatology Rachel Hill MD [address] [place] [address] [phone] 08/07/2018 Office Visit Sleep Disorders Lanette Fields CRNP 132 [facility] [place] [address] [phone] Kentrell, Nurse Sleep Disorders 132 [facility] [place] [address] [phone] Health Maintenance Due Date Last Done Comments [...] MG/DL Specimen Performing Laborator y [facility] [address] [facility] [place] [address] * LDL (DIRECT MEASURE) (10/11/2017 1:18 PM) Component Value Ref Range LDL (DIRECT MEASURE) 57 Comment: LDL CHOLESTEROL REFERENCE RANGES(mg/dL) <100 OPTIMAL GOAL FOR HIGH RISK PATIENTS 100-129NEAR OR ABOVE NORMAL 130-159BORDERLINE HIGH 160-189HIGH >189 VERY HIGH 0 - 129 mg/dL Specimen Performing Laborator y [facility] [address] [place] [address] * BASIC METAB PANEL, BMP (10/11/2017 1:18 [...] by 1.159. >60 Specimen Performing Laborator y [facility] [address] [place] [address] * CBC (10/11/2017 1:18 PM) Component Value [...] - 11.1 fL Specimen Performing Laborator y [facility] [address] [place] [address] in this encounter Visit Diagnoses Diagnosis Bladder [...] / Group Subscriber ID Type Phone Address [facility] [id number] AETNA [facility] [id number] [facility] [id number] as of this encounter"
--- OUTSIDE RECORDS SUMMARY | 2023-05-10 23:39 | External Medical Summary | Summary of Care ---
Author Name Unknown Organization [place] [address] Phone Care Team Providers Care Reserve Operator Name Role Phone Nancy Matute MD Primary Care Provider [phone] Reason for Visit * Reason Comments MEDICATION REFILL Encounter Details Date Type Department Care Team Description 10/12/[address] [address] Nancy Matute MD [address] [place] [address] [phone] Candidal vulvovaginitis Allergies Active Allergy Reactions Severity Noted Date [...] Inhaler 1 06/29/2016 Active Vitamin D, Ergocalciferol, 21998 UNITS CapsuleIndications: Vitamin D deficiency 1capsule every other week 8 Cap 6 09/27/2016 Active potassium chloride ER 10 MEQ TBCRIndications:Hyp okalemia Take 1 Tab by mouth 2 times a day. With food. 60 Tab 5 01/06/2017 Active Blood Glucose Monitoring Suppl (Bit CauldronTOUCH VERIO) W/DEVICE KITIndications:Type 2 diabetes mellitus with hemoglobin A1c goal of less than 7.0% (HCC) Use as directed. Use daily to check blood sugars DX:E11.9 1 Kit 0 01/17/2017 Active Glucose Blood (Seaforth EnergyUCH ULTRA BLUE) STRPIndications:Typ e 2 diabetes mellitus [...] directed.DX:E11 .9 100 Strip 11 01/19/2017 Active gabapentin (NEURONTIN) 300 MG CapsuleIndications: [...] of less than 7.0% ([facility]) 10 units at bed time 5 Pre-filled Pen Syringe Dosing Unit 3 10/11/2017 Active Insulin Pen Needle 31G X 6 MM MISCIndications:Typ e 2 diabetes mellitus with hemoglobin A1c goal of less than 7.0% ([facility]) Use with Lantus Solostar at bedtime 30 Each 3 10/11/2017 Active nystatin 404876 UNIT/GM creamIndications:Ca ndidal vulvovaginitis Apply topically to affected area 2 times a day. To affacted area for two weeks. 15 g 2 10/12/2017 Active nystatin 967480 UNIT/GM creamIndications:Ca ndidal vulvovaginitis Apply topically to affected area 2 times a day. To affacted area for two weeks. 15 g 2 08/24/2017 10/12/19 18 Discontinued as of this encounter Active Problems Problem Noted Date Bladder tumor 10/11/2017 Chronic indwelling Cline catheter 2017 Recurrent UTI 10/11/2017 Preoperative cardiovascular examination 10/11/2017 History of Clostridium difficile colitis 08/29/2017 Debility 07/19/2017 Body mass index (BMI) of 50.0 to 59.9 in adult ([facility]) 06/12/2017 Overview: Per Obesity protocol [...] 140/90 03/27/2012 Chronic rhinitis 03/27/2012 Cerebral palsy ([facility]) 01/24/2012 Obstructive sleep apnea 01/18/2011 [...] Atypical chest pain 08/19/2016 01/17/2017 Hepatic cirrhosis ([facility]) 08/19/2016 03/28/20 17 Polyuria 08/09/2016 [...] BMI > 40) ([facility]) 02/09/2015 03/28/2017 THAD (obstructive sleep [...] pain 01/24/2012 01/17/2017 Genetic Sleep Disorder Research Other*[id number] 05/13/2011 04/07/2016 Lumbosacral spondylosis 12/27/2010 05/25/20 12 Dyslipidemia, goal LDL below 130 06/01/2010 03/28/2012 Asthma with severity to be determined 03/04/2010 11/01/2011 Overview: Per Asthma Taxonomy ICD-10 update of inactive term Asthma in remission 03/04/2010 01/09/2013 Overview: Per Provider Protocol. Obesity, morbid (more than 1 00 lbs over ideal weight or BMI > 40) ([facility]) 12/08/2009 07/02/2014 Overview: Per Obesity [...] Telephone Encounter - Maikel Caceres DO - 10/12/2017 1:49 PM EST Signed Prescriptions: Disp Refills nystatin 299187 UNIT/GM cream 15 g 2 Sig: Apply topically to affected area 2 times a day. To affacted area for two weeks. Authorizing Provider: MAIKEL CACERES * Telephone Encounter - Savi Bernal, shove up - 10/12/2017 12:16 PM EST Pending Prescriptions: Disp Refills nystatin 383348 UNIT/GM cream 15 g 2 Sig: Apply topically to affected area 2 times a day. To affacted area for two weeks. Last Office Visit: 10/11/2017 Next Office Visit: 11/21/2017 Scheduled Provider(s): Nancy Matute MD If no future appointments scheduled, and last appointment is greater than a year ago, please schedule patient for a follow-up appointment Last date the medication was ordered: 08/24/17 Phone number(s): [phone] (home) Labs: CREATININE(mg/dL) Lucio Dt/Tm Resulted Value Status 10/11/17 1:18P 10/11/17 0.7 FINAL LDL (DIRECT MEASURE)(mg/dL) Lucio Dt/Tm Resulted Value Status 10/11/17 1:18P 10/11/17 57 FINAL POTASSIUM(mmol/L) Lucio Dt/Tm Resulted Value Status 10/11/17 1:18P 10/11/17 4.1 FINAL ALT(U/L) Lucio Dt/Tm Resulted Value Status [...] Office Visit Gynecology Obstetrics Alberta Gould PA-C [address] [place] [address] [phone] 11/08/2017 Office Visit Gastroenterology Lyssa Stout CRNP [address] [place] [address] [phone] 11/21/2017 Office Visit Family Practice Nancy Matute MD [address] [place] [address] [phone] 11/28/2017 Office Visit Gastroenterology Gadiel Pathak MD [address] [facility] [place] [address] 03/20/2018 Office Visit Dermatology Rachel Hill MD [address] [facility] [place] [address] [phone] 08/07/2018 Office Visit Sleep Disorders Lanette Fields CRNP 132 [place] [address] [phone] Kentrell, Nurse Sleep Disorders [address] [facility] [address] [phone] Health Maintenance Due Date Last Done Comments [...] 10/10/2019 10/10/2016, 07/02/2014, 04/16/2013, Additional history exists COLONOSCOPY-EVERY 10 YRS AGES 50-75 10/04/2026 10/04/2016, 04/21/2009 TETANUS EVERY 10 YRS-TDAP (BOOSTRIX/ADACEL) SUGGESTED IF [...] fileas of this encounter Visit Diagnoses Diagnosis Candidal vulvovaginitis Candidiasis of vulva and vagina in this encounter Insurance Payer Benefit Plan / Group Subscriber ID Type Phone Address [facility] [id number] AETNA AETNA [employer] [id number] [facility][1] [id number] as of this encounter
--- OUTSIDE RECORDS SUMMARY | 2023-05-10 23:39 | External Medical Summary | Summary of Care ---
Author Name Unknown Organization [place] [address] Phone Care Team Providers Care Sterile Technician Name Role Phone Nancy Matute MD Primary Care Provider [phone] Reason for Visit * Reason Comments FORMS REQUEST [facility] Encounter Details Date Type Department Care Team Description 10/05/2017 Telephone [address] [place] [address] Nancy Matute MD [address] [place] [address] [phone] FORMS REQUEST ([facility]) Allergies Active Allergy Reactions Severity Noted Date [...] Inhaler 1 06/29/2016 Active Vitamin D, Ergocalciferol, 73044 UNITS CapsuleIndications:Vi tamin D deficiency 1capsule every [...] at bedtime. 30 Tab 0 09/08/2017 Active as of this encounter Active Problems Problem Noted Date Bladder tumor 10/11/2017 Chronic indwelling Cline catheter 2017 Recurrent UTI 10/11/2017 Preoperative cardiovascular examination 10/11/2017 History of Clostridium difficile colitis 08/29/2017 Debility 07/19/2017 Body mass index (BMI) of 50.0 to 59.9 in adult ([facility]) 06/12/2017 Overview: Per Obesity protocol [...] palsy ([facility]) 01/24/2012 Obstructive sleep apnea 01/18/2011 Overview: [...] pain 01/24/2012 01/17/2017 Genetic Sleep Disorder Research Other*[id number] 05/13/2011 04/07/2016 Lumbosacral spondylosis 12/27/2010 05/25/20 12 [...] Telephone Encounter - Michaelle Lindquist LPN - 10/09/2017 1:13 PM EST Please review and advise form on desk. * Telephone Encounter - Dulce Call OSA - 10/05/2017 2:58 PM EST fam Medref, placed in Matute bin in this encounter Plan of Treatment Upcoming Encounters Date Type Specialty Care Team Description 10/17/2017 Office Visit Gynecology Obstetrics Alberta Gould, PA-C 132 [facility] [place] [address] [phone] 11/08/2017 Office Visit Gastroenterology Lyssa Stout CRNP [address] [facility] [place] [address] [phone] 11/21/2017 Office Visit Family Practice Nancy Matute MD [address] [place], [place] [address] 11/28/2017 Office Visit Gastroenterology Gadiel Pathak MD [address] [place], [place] [address] 03/20/2018 Office Visit Dermatology Rachel Hill MD [address] [place] [address] [phone] 08/07/2018 Office Visit Sleep Disorders Lanette Fields CRNP [facility] [place] [address] [phone] , Nurse Sleep Disorders 132 [facility] [place] [address] [phone] Health Maintenance Due Date Last Done Comments [...] Group Subscriber ID Type Phone Address [facility] [id number] AETNA [employer] [id number] [facility] [id number] as of this encounter
--- OUTSIDE RECORDS SUMMARY | 2023-05-10 23:39 | External Medical Summary | Summary of Care ---
Author Name Unknown Organization [place] [address] Phone Care Team Providers Care Vascular Technologist Sonographer Name Role Phone Nancy Matute MD Primary Care Provider [phone] Reason for Visit * Reason Comments FYI Encounter Details Date Type Department Care Team Description 10/10/2017 Telephone Sleep Disorders, [facility] [address] [facility] [place] [address] Lanette Fields CRNP 132 [facility] [place] [address] [phone] FYI Allergies Active Allergy Reactions Severity Noted [...] Inhaler 1 06/29/2016 Active Vitamin D, Ergocalciferol, 99889 UNITS CapsuleIndications:Vi tamin D deficiency 1capsule every other week 8 Cap 6 09/27/2016 Active potassium chloride ER 10 MEQ TBCRIndications:Hypok alemia Take 1 Tab by mouth 2 times a day. With food. 60 Tab 5 01/06/2017 Active Blood Glucose Monitoring Suppl (Sarkite[employer] Sensors VERIO) W/DEVICE KITIndications:Type 2 diabetes mellitus with hemoglobin A1c goal of less than 7.0% (HCC) Use as directed. Use daily to check blood sugars DX:E11.9 1 Kit 0 01/17/2017 Active Glucose Blood (CampuSceneUCH ULTRA BLUE) STRPIndications:Type 2 diabetes mellitus with hemoglobin A1c goal of less than 7.0% (HCC) Use as directed 4 times a day as needed for Other (Use daily to check blood sugars DX:E11.9). Use up to four times a day as directed 100 Strip 11 01/17/2017 Active BioRelixTOUCH ULTRASOFT LANCETS MISCIndications:Type 2 diabetes mellitus with [...] for allergies 30 Tab 11 07/19/2017 Active nystatin 568146 UNIT/GM creamIndications:Cand idal vulvovaginitis Apply topically to affected area 2 times a day. To affacted area for two weeks. 15 g 2 08/24/2017 Active atorvaSTATin (LIPITOR) 40 MG TabletIndications:Dys lipidemia, [...] at bedtime. 30 Tab 5 10/09/2017 Active as of this encounter Active Problems Problem Noted Date Bladder tumor 10/11/2017 Chronic indwelling Cline catheter 2017 Recurrent UTI 10/11/2017 Preoperative cardiovascular examination 10/11/2017 History of Clostridium difficile colitis 08/29/2017 Debility 07/19/2017 Body mass index (BMI) of 50.0 to 59.9 in adult ([facility]) 06/12/2017 Overview: Per Obesity protocol #1 [...] Chronic rhinitis 03/27/2012 Cerebral palsy ([facility]) 01/24/2012 Obstructive sleep apnea 01/18/2011 Overview: [...] 08/19/2016 01/17/2017 Hepatic cirrhosis (HCC) 08/19/2016 03/28/20 Polyuria 08/09/2016 01/17/2017 Urinary frequency [...] pain 01/24/2012 01/17/2017 Genetic Sleep Disorder Research Other*[id number] 05/13/2011 04/07/2016 Lumbosacral spondylosis 12/27/2010 05/25/20 12 [...] encounter Miscellaneous Notes * Telephone Encounter - Rajni Mike RN - 10/12/2017 8:34 AM EST faxed * Telephone Encounter - Rajni Mike RN - 10/10/2017 12:00 PM EST Miley knows we are waiting for a provider to sign it * Telephone Encounter - Rajni Mike RN - 10/10/2017 11:59 AM EST We have the paperwork, just need to wait for provider to sign it * Telephone Encounter - Zoe Balderas OSA - 10/10/2017 11:30 AM EST Linda from [facility] is calling to let us know she is faxing a request to be signed to the office for CPAP supplies and chart notes. Please advise. in this encounter Plan of Treatment Upcoming Encounters Date Type Specialty Care Team Description 10/17/2017 Office Visit Gynecology Obstetrics Alberta Gould PA-C [address] [place] [address] [phone] 11/08/2017 Office Visit Gastroenterology Lyssa Stout CRNP [address] [place] [address] [phone] 11/21/2017 Office Visit Family Practice Nancy Matute MD [address] [place] [address] [phone] 11/28/2017 Office Visit Gastroenterology Gadiel aPthak MD [address] [place] [address] [phone] 03/20/2018 Office Visit Dermatology Rachel Hill MD [address] [place] [address] [phone] 08/07/2018 Office Visit Sleep Disorders Lanette Fields CRNP [address] [place] [address] Nurse Kentrell [facility] [address] [place] [address] Health Maintenance Due Date Last Done [...] / Group Subscriber ID Type Phone Address [facility] [id number] [employer] [id number] [facility] [id number] as of this encounter
--- OUTSIDE RECORDS SUMMARY | 2023-05-10 23:39 | External Medical Summary ---
Author Name Unknown Address [address] [facility] [place] [facility] Phone Organization K01:[facility] [address] [facility] [place] [address] Laboratory Report Ordering Provider Test Date Status ALEJANDRA Cruz 10/11/2017 13:18:00 Final Observation Date Value Abnormality Reference Status HbA1C 10/11/2017 22:34 6.9 Above high normal 4.0-6 .4 Final Performing Location [facility] [address] [facility] [address]
--- OUTSIDE RECORDS SUMMARY | 2023-05-10 23:39 | External Medical Summary | Summary of Care ---
Author Name Unknown Organization [place] [address] Phone Care Team Providers Care Mine Foreman Name Role Phone Nancy Matute MD Primary Care Provider [phone] Reason for Visit * Reason Comments FYI Encounter Details Date Type Department Care Team Description 10/11/2017 Telephone [place] [address] [place] [address] Nancy Matute MD [address] [place] [address] [phone] FYI Allergies Active Allergy Reactions Severity Noted [...] Inhaler 1 06/29/2016 Active Vitamin D, Ergocalciferol, 70869 UNITS CapsuleIndications: Vitamin D deficiency 1capsule every other week 8 Cap 6 09/27/2016 Active potassium chloride ER 10 MEQ TBCRIndications:Hyp okalemia Take 1 Tab by mouth 2 times a day. With food. 60 Tab 5 01/06/2017 Active Blood Glucose Monitoring Suppl (Pro[employer] Systems VERIO) W/DEVICE KITIndications:Type 2 diabetes mellitus with hemoglobin A1c goal of less than 7.0% (HCC) Use as directed. Use daily to check blood sugars DX:E11.9 1 Kit 0 01/17/2017 Active Glucose Blood (NeoconixUCH ULTRA BLUE) STRPIndications:Typ e 2 diabetes mellitus [...] allergies 30 Tab 11 07/19/2017 Active nystatin 020242 UNIT/GM creamIndications:Ca ndidal vulvovaginitis Apply topically to affected area 2 times a day. To affacted area for two weeks. 15 g 2 08/24/2017 Active atorvaSTATin (LIPITOR) 40 MG TabletIndications:D yslipidemia, [...] 60 Cap 5 07/19/2017 10/11/19 18 Discontinued Hydrocodone-Acetami nophen (NORCO) 10-325 MG [...] pain 01/24/2012 01/17/2017 Genetic Sleep Disorder Research Other*[id number] 05/13/2011 04/07/2016 Lumbosacral spondylosis 12/27/2010 05/25/20 12 [...] Telephone Encounter - Nancy Matute MD - 10/11/2017 4:37 PM EST Orders done. E script to stephen-tyree. Nancy Matute MD * Telephone Encounter - Savi Bernal, field education director - 10/11/2017 3:19 PM EST Pt called to ask if Was going to order an insulin syringe/pen for her. Pt was just to Dr. Chaudhary and this was discussed. Please advise. Thanks, Savi Bernal Program/Music Director Pharmacy Refill Call Center 10/11/2017,3:21 PM in this encounter Plan of Treatment Upcoming Encounters Date Type Specialty Care Team Description 10/17/2017 Office Visit Gynecology Obstetrics Alberta Gould PA-C 132 [place] [address] [phone] 11/08/2017 Office Visit Gastroenterology Lyssa Stout CRNP 132 [place] [address] [phone] 11/21/2017 Office Visit Family Practice Nancy Matute MD [address] [place], [place] [address] 11/28/2017 Office Visit Gastroenterology Gadiel Pathak MD [address] [place] [address] [phone] 03/20/2018 Office Visit Dermatology Rachel Hill MD [address] [place] [address], [place] [address] [phone] 08/07/2018 Office Visit Sleep Disorders Lanette Fields CRNP [address] [place] [address] [phone] Kentrell, Nurse Sleep Disorders [address] [place] [address] [phone] Health Maintenance Due Date Last Done Comments Yearly B-12 1955 DIABETES-EYE EXAM 1973 DIABETES-HGBA1C EVERY 6 MONTHS 09/28/2017 03/28/2017, 02/01/2017, 05/05/2016, Additional history exists BREAST CANCER SCREENING DISCUSSION YEARLY AGES 40-75 01/18/2018 01/18/2017, 01/17/2017 (Discussed), 12/22/2015, Additional history exists DIABETES-LDL EVERY 12 MONTHS 02/01/2018 02/01/2017, 05/05/2016, 08/25/2015, Additional history exists DIABETES-URINE MICROALBUMIN EVERY 12 MONTHS 02/03/2018 02/03/2017, 08/25/2015, 12/09/2014, Additional history exists DIABETES-FOOT EXAM 03/22/2018 03/22/2017, 0 06/07/2016, 08/25/2015, Additional history exists PAP SMEAR-EVERY 3 [...] Phone Address [facility] [id number] [employer] [facility] [id number] [facility] [id number] as of this encounter
--- OUTSIDE RECORDS SUMMARY | 2023-05-10 23:39 | External Medical Summary | Summary of Care ---
Author Name Unknown Organization [place] [address] Phone Care Team Providers Care Cotton Jammer Name Role Phone Nancy Matute MD Primary Care Provider [phone] Reason for Visit * Reason Comments MEDICATION QUESTION Encounter Details Date Type Department Care Team Description 10/12/2017 Telephone [place] [place] [address] Nancy Matute MD [address] [place] [address] [phone] MEDICATION QUESTION Allergies Active Allergy Reactions Severity [...] Inhaler 1 06/29/2016 Active Vitamin D, Ergocalciferol, 53704 UNITS CapsuleIndications:Vi tamin D deficiency 1capsule every other week 8 Cap 6 09/27/2016 Active potassium chloride ER 10 MEQ TBCRIndications:Hypok alemia Take 1 Tab by mouth 2 times a day. With food. 60 Tab 5 01/06/2017 Active Blood Glucose Monitoring Suppl (ZinkoTekTOUCH VERIO) W/DEVICE KITIndications:Type 2 diabetes mellitus with hemoglobin A1c goal of less than 7.0% (HCC) Use as directed. Use daily to check blood sugars DX:E11.9 1 Kit 0 01/17/2017 Active Glucose Blood (ZinkoTekTOUCH ULTRA BLUE) STRPIndications:Type 2 diabetes mellitus with [...] bedtime 30 Each 3 10/11/2017 Active nystatin 659604 UNIT/GM creamIndications:Cand idal vulvovaginitis Apply topically to [...] Cerebral palsy ([facility]) 01/24/2012 Obstructive sleep apnea 01/18/2011 [...] pain 01/24/2012 01/17/2017 Genetic Sleep Disorder Research Other*[id number] 05/13/2011 04/07/2016 Lumbosacral spondylosis 12/27/2010 05/25/20 12 [...] - 10/12/2017 1:59 PM EST Labs in [facility] ordered Will anyone address or wait on [place] Monday * Telephone Encounter - Savi Bernal composition molder - 10/12/2017 12:18 PM EST Pt is wondering if someone can let her know about her blood work she had and whether or not she will need diabetic meds or any of her meds going forward. Thanks, Savi Bernal Vice President Education Pharmacy Refill Call Center 10/12/2017,12:19 PM in this encounter Plan of Treatment Upcoming Encounters Date Type Specialty Care Team Description 10/17/2017 Office Visit Gynecology Obstetrics Alberta Gould PA-C [address] [facility] [place] [address] [phone] 11/08/2017 Office Visit Gastroenterology Lyssa Stout CRNP 132 [facility] [place] [address] [phone] 11/21/2017 Office Visit Family Practice Nancy Matute MD [address] [place] [address] [phone] 11/28/2017 Office Visit Gastroenterology Gadiel Pathak MD [address] [place] [address] 03/20/2018 Office Visit Dermatology Rachel Hill MD [address] [place] [address] [phone] 08/07/2018 Office Visit Sleep Disorders Lanette Fields CRNP [address] [place] [address] [phone] Nurse Kentrell Sleep [facility] [address] [address] [phone] Health Maintenance Due Date Last Done Comments [...] / Group Subscriber ID Type Phone Address [place] [id number] [employer] [id number] [facility] [id number] as of this encounter
--- OUTSIDE RECORDS SUMMARY | 2023-05-10 23:39 | External Medical Summary ---
Author Name Unknown Address [address] [facility] [place] [address] Phone Organization K01:[facility] [address] [facility] [place] [address] Laboratory Report Ordering Provider Test Date Status PALEJANDRA 10/11/2017 13:18:00 Final Observation Date Value Abnormality Reference Status WBC, Total 10/11/2017 22:23 3.90 Below low normal 4.00- 10.80 Final RBC 10/11/2017 22:23 4.03 3.85-5.15 Fin al Hemoglobin 10/11/2017 22:23 12.1 12.0-15.3 Fi nal HCT 10/11/2017 22:23 39.3 36.0-45.2 Fin al MCV 10/11/2017 22:23 97.5 81.5-97.5 Fin al MCH 10/11/2017 22:23 30.0 27.0-34.0 Fin al MCHC 10/11/2017 22:23 30.8 Below low normal 32.0-3 6.0 Final RDW 10/11/2017 22:23 15.1 11.5-15.5 Fin al Platelets 10/11/2017 22:23 97 Below low normal 140-40 0 Final MPV 10/11/2017 22:23 13.2 Above high normal 6.6-1 1.1 Final Performing Location [facility] [address] [facility] [place] [address]
--- OUTSIDE RECORDS SUMMARY | 2023-05-10 23:40 | External Medical Summary | Summary of Care ---
Author Name Unknown Organization [place] [address] Phone Care Team Providers Care Truck Service Technician Name Role Phone Nancy Roberts MD Primary Care Provider [phone] Reason for Visit * Reason Comments MEDICATION REFILL Encounter Details Date Type Department Care Team Description 10/09/[address] [address] Nancy Roberts MD [address] [place] [address] [phone] Asthma exacerbation Allergies Active Allergy Reactions Severity Noted Date [...] Inhaler 1 06/29/2016 Active Vitamin D, Ergocalciferol, 50586 UNITS CapsuleIndications: Vitamin D deficiency 1capsule every [...] 1 Kit 0 01/17/2017 Active Glucose Blood (GCWTOUCH ULTRA BLUE) STRPIndications:Typ e 2 diabetes mellitus [...] other meds) 30 Tab 5 06/20/2017 Active levothyroxine (LEVOXYL) 88 MCG Tablet Take [...] mouth daily. 90 Cap 1 07/19/2017 Active docusate sodium (COLACE) 100 MG Capsule Take 1 Cap by mouth 2 times a day. 60 Cap 5 07/19/2017 Active fexofenadine (BERNARDA) 180 MG TabletIndications:A llergic conjunctivitis of both eyes,Allergic rhinitis One pill by mouth once a day as needed for allergies 30 Tab 11 07/19/2017 Active nystatin 163439 UNIT/GM creamIndications:Ca ndidal vulvovaginitis Apply topically to affected area 2 times a day. To affacted area for two weeks. 15 g 2 08/24/2017 Active atorvaSTATin (LIPITOR) 40 MG TabletIndications:D yslipidemia, goal LDL below 70 Take 1 Tab by mouth at bedtime. 90 Tab 1 09/08/2017 Active Hydrocodone-Acetami nophen (NORCO) 10-325 MG per tabletIndications:S jennifer stenosis of lumbar region without neurogenic claudication,DDD (degenerative disc disease), lumbar,MEDICATION USE AGREEMENT Take 1 Tab by mouth 2 times a day as needed for Pain. 60 Tab 0 09/08/2017 Active benzonatate (TESSALON PERLES) 100 MG CapsuleIndications: Bronchitis, complicated take 1 capsule by mouth three times a day if needed for cough 30 Cap 1 09/08/2017 Active cyclobenzaprine (FLEXERIL) 10 MG Tablet Take 1 Tab by mouth at bedtime. 30 Tab 0 09/08/2017 Active albuterol-ipratropi um (DUONEB) 2.5-0.5 MG/3ML nebulizer solutionIndications :Asthma exacerbation Use 1 vial in nebulizer 180 mL 0 10/09/2017 Active atenolol (TENORMIN) 25 MG Tablet Take 1 Tab by mouth at bedtime. 30 Tab 5 10/09/2017 Active atenolol (TENORMIN) 25 MG Tablet Take 1 Tab by mouth at bedtime. 30 Tab 5 01/06/2017 10/09/19 18 Discontinued albuterol-ipratropi um (DUONEB) 2.5-0.5 MG/3ML nebulizer solutionIndications :Asthma exacerbation Use 1 vial in nebulizer 2 Vial 0 06/20/2017 10/09/19 18 Discontinued as of this encounter Active Problems Problem Noted Date History of Clostridium difficile colitis 08/29/2017 Debility [...] pain 01/24/2012 01/17/2017 Genetic Sleep Disorder Research Other*[id number] 05/13/2011 04/07/2016 Lumbosacral spondylosis 12/27/2010 05/25/20 12 [...] Notes * Telephone Encounter - Maribeth Munguia [facility] - 10/09/2017 12:16 PM EST Signed Prescriptions: Disp Refills albuterol-ipratropium (DUONEB) 2.5-0.5 MG/*180 mL 0 Sig: Use 1 vial in nebulizer Authorizing Provider: Nancy ROBERTS Ordering User: MARIBETH MUNGUIA atenolol (TENORMIN) 25 MG Tablet 30 Tab 5 Sig: Take 1 Tab by mouth at bedtime. Authorizing Provider: Nancy ROBERTS Ordering User: MARIBETH MUNGUIA * Telephone Encounter - Shonna Cedillo [facility] - 10/09/2017 8:45 AM EST Pending Prescriptions: Disp Refills albuterol-ipratropium (DUONEB) 2.5-0.5 MG*2 Vial 0 Sig: Use 1 vial in nebulizer atenolol (TENORMIN) 25 MG Tablet 30 Tab 5 Sig: Take 1 Tab by mouth at bedtime. Last Office Visit: 07/19/2017 Next Office Visit: 10/11/2017 Scheduled Provider(s): Nancy Roberts MD If no future appointments scheduled, and last appointment is greater than a year ago, please schedule patient for a follow-up appointment Last date the atenolol was ordered: 01/06/2017 Last date the duoneb was ordered: 06/20/2017 Phone number(s): [phone] (home) Labs: CREATININE(mg/dL) Lucio Dt/Tm Resulted Value Status 05/30/17 3:59P 05/30/17 0.7 FINAL POTASSIUM(mmol/L) Lucio Dt/Tm Resulted Value Status 05/30/17 3:59P 05/30/17 4.3 FINAL ALT(U/L) Lucio Dt/Tm Resulted Value Status 03/28/17 3:31P 03/28/17 26 FINAL LDL (DIRECT MEASURE)(mg/dL) Lucio Dt/Tm Resulted Value Status 02/01/17 11:19A 02/01/17 101 FINAL TSH(uIU/mL) Lucio Dt/Tm Resulted Value Status 02/01/17 11:19A 02/01/17 0.01* FINAL Hemoglobin AIC Results: HEMOGLOBIN, A1C(%) Lucio Dt/Tm Resulted Value Status 03/28/17 3:31P 03/28/17 6.6* FINAL 02/01/17 11:19A 02/01/17 6.9* FINAL 05/05/16 10:19A 05/05/16 5.6 FINAL in this encounter Plan of Treatment Upcoming Encounters Date Type Specialty Care Team Description 10/10/2017 Office Visit Cardiology Myke Castillo, Andrea Rowe DO [address] [facility] [place] [address] 10/10/2017 Office Visit [facility]enterology Gad[facility]ak [facility] [address] [facility] [address] 10/11/2017 Office Visit Family Practice Nancy Roberts MD [address] [place] [address] [phone] 10/17/2017 Office Visit Gynecology Obstetrics Alberta Gould PA-C 132 [facility] [place] [address] [phone] 11/08/2017 Office Visit Gastroenterology Lyssa Stout CRNP 132 [facility] [place] [address] [phone] 11/21/2017 Office Visit Family Practice Nancy Roberts MD [address] [facility] [place] [address] [phone] 03/20/2018 Office Visit Dermatology Rachel Hill MD 200 [place] [address] [phone] 08/07/2018 Office Visit Sleep Disorders Lanette Fields CRNP 132 [facility] [place] [address] [phone] Kentrell Nurse Sleep Disorders [facility] [place] [address] [phone] Health Maintenance Due Date Last Done Comments [...] fileas of this encounter Visit Diagnoses Diagnosis Asthma exacerbation Unspecified asthma, with exacerbation in this encounter Insurance Payer Benefit Plan / Group Subscriber ID Type Phone Address [facility] [id number] [employer] [id number] [facility] [id number] as of this encounter
--- OUTSIDE RECORDS SUMMARY | 2023-05-10 23:40 | External Medical Summary | Summary of Care ---
Author Name Unknown Organization [place] [address] Phone Care Team Providers Care Computer Equipment Installer Name Role Phone Nancy Matute MD Primary Care Provider [phone] Reason for Visit * Reason Comments Weight Management 6 week recheck-in an d out of hospital Encounter Details Date Type Department Care Team Description 10/10/2017 Office Visit Nutrition & Weight Management, [facility] [address] [facility] [place] [address] Gadiel Pathak MD [address] [facility] [place] [address] Morbid obesity due to excess calories (HCC)*;NG (nonalcoholic steatohepatitis);Type 2 diabetes mellitus with hemoglobin A1c goal of less than 7.0% (HCC);HTN, goal below 140/90 Allergies Active Allergy Reactions [...] Inhaler 1 06/29/2016 Active Vitamin D, Ergocalciferol, 06586 UNITS CapsuleIndications: Vitamin D deficiency 1capsule every [...] 1 Kit 0 01/17/2017 Active Glucose Blood (B2X Care SolutionsTOUCH ULTRA BLUE) STRPIndications:Typ e 2 diabetes mellitus with hemoglobin A1c goal of less than 7.0% (HCC) Use as directed 4 times a day as needed for Other (Use daily to check blood sugars DX:E11.9). Use up to four times a day as directed 100 Strip 11 01/17/2017 Active B2X Care SolutionsTOUCH ULTRASOFT LANCETS MISCIndications:Typ e 2 diabetes mellitus [...] allergies 30 Tab 11 07/19/2017 Active nystatin 833273 UNIT/GM creamIndications:Ca ndidal vulvovaginitis Apply topically to [...] for Pain. 60 Tab 0 09/08/2017 Active cyclobenzaprine (FLEXERIL) 10 MG Tablet Take 1 Tab by mouth at bedtime. 30 Tab 0 09/08/2017 Active albuterol-ipratropi um (DUONEB) 2.5-0.5 MG/3ML nebulizer solutionIndications :Asthma exacerbation Use 1 vial in nebulizer 180 mL 0 10/09/2017 Active atenolol (TENORMIN) 25 MG Tablet Take 1 Tab by mouth at bedtime. 30 Tab 5 10/09/2017 Active benzonatate (TESSALON PERLES) 100 MG CapsuleIndications: Bronchitis, complicated take 1 capsule by mouth three times a day if needed for cough 30 Cap 1 09/08/2017 10/10/19 18 Discontinued as of this encounter Active Problems Problem Noted Date History of Clostridium difficile colitis 08/29/2017 Debility 07/19/2017 Body mass index (BMI) of 50.0 to 59.9 in adult ([facility]) 06/12/2017 Overview: Per Obesity protocol [...] pain 01/24/2012 01/17/2017 Genetic Sleep Disorder Research Other*[id number] 05/13/2011 04/07/2016 Lumbosacral spondylosis 12/27/2010 05/25/20 12 [...] Vital Sign Reading Time Taken Blood Pressure 124/78 10/10/2017 10:30 AM EST Pulse 78 10/10/2017 10:30 AM EST Temperature - - Respiratory Rate - - Oxygen Saturation - - Inhaled Oxygen Concentration - - Weight 120.5 kg (265 lb 11.2 oz) 2017 10:30 AM EST Height - - Body Mass Index 53.66 10/10/2017 10:30 AM EST in this encounter Progress Notes * Gadiel Pathak MD - 10/10/2017 10:35 AM EST Formatting of this note may [...] pounds. Wt Readings from Last 5 Encounters: 10/10/17 120.5 kg (265 lb 11.2 oz) 10/10/17 120.5 kg (265 lb 11.2 oz) 07/19/17 117.5 kg (259 lb) 07/18/17 117.9 kg (259 lb 14.4 oz) 06/23/17 121.6 kg (268 lb) Patient is receiving ongoing education regarding dietary and physical modifications for weight loss. Patient is interested in the following treatment options for obesity: medical management. The patient was last seen in this clinic 07/2017. Since that time the patient's weight has increased 6 pounds. The patient's total weight change is -11 pounds. Has been in and out of the hospital for the last few months and was just discharged from [facility] around a week back. Review of Systems: [...] Current Outpatient Prescriptions Medication Sig Dispense Refill albuterol-ipratropium (DUONEB) 2.5-0.5 MG/3ML nebulizer solution Use 1 vial in nebulizer 180 mL0 atenolol (TENORMIN) 25 MG Tablet Take 1 Tab by mouth at bedtime. 30 Tab 5 atorvaSTATin (LIPITOR) 40 MG Tablet Take 1 Tab by mouth at bedtime. 90 Tab 1 Hydrocodone-Acetaminophen (NORCO) 10-325 MG per tablet Take 1 Tab by mouth 2 times a day as needed for Pain. 60 Tab 0 cyclobenzaprine (FLEXERIL) 10 MG Tablet Take 1 Tab by mouth at bedtime. 30 Tab 0 nystatin 657401 UNIT/GM cream Apply topically to affected area [...] Cap by mouth daily. 90 Cap 1 docusate sodium (COLACE) 100 MG Capsule Take 1 Cap by mouth 2 times a day. 60 Cap 5 fexofenadine (BERNARDA) 180 MG Tablet One [...] times daily 180 Cap 5 Glucose Blood (SimfinitUCH VERIO) STRP Use up to four times a day as directed.DX:E11.9 100 Strip 11 Blood Glucose Monitoring Suppl (B2X Care SolutionsTOGreen [employer] VERIO) W/DEVICE KIT Use as directed. Use daily to check blood sugars DX:E11.9 1 Kit 0 Glucose Blood (SimfinitUCH ULTRA BLUE) STRP Use as directed 4 [...] a day. With food. 60 Tab 5 Vitamin D, Ergocalciferol, 21337 UNITS Capsule 1capsule every other week 8 [...] into each nostril daily. 1 Inhaler 5 OCEAN NASAL SPRAY 0.65 % NA SOLN [...] 0 NEBULIZER KORTNEY as directed 1 0 albuterol (PROVENTIL HFA) 108 (90 BASE) MCG/ACT inhaler Inhale 2 Puffs by mouth 4 times a day. 1 Inhaler 1 Water intake: sometimes, drinks about 2-3 large bottles of water per day Prescribed diet: 3340-3480 Low Fat CHO Modified Diet Current diet: --> Breakfast-- eggs -3, 2 slices of toast with butter and jelly; bagel with cream cheese --> Snack--club crackers --> Lunch-- lunch meat sandwich; tomato and almeida sandwich, tomato soup --> Snack--none --> Dinner--chili; baked potato and veggie; fried chicken often with veggies / fast food --> Snack-- none or crackers or grapes --> Drinks-- flavored water, diet amaury jackie , milk 2% Food logs: No Type of exercise: limited due to immobility from CP Weight loss Pharmacotherapy: no BP 124/78 | Pulse 78 | Wt 265 lbs 11.2 oz (120.521kg) | BMI 53.66 kg/m | BSA 2.24 m PHYSICAL EXAMINATION: General: Patient is in no [...] 11:19A 02/01/17 101 0 129 F HDL(mg/dL) Lucio Dt/Tm Resulted Value Status 05/05/16 10:19A 05/05/16 38* FINAL CHOLESTEROL(mg/dL) Lucio Dt/Tm Resulted Value Status 05/05/16 10:19A 05/05/16 122 FINAL GLUCOSE(mg/dL) Lucio Dt/Tm Resulted Value Status 05/30/17 3:59P 05/30/17 131* FINAL HEMOGLOBIN, A1C(%) Lucio Dt/Tm Resulted Value Status 03/28/17 3:31P 03/28/17 6.6* FINAL LIPID PANEL Lucio Dt/Tm Resulted Value Status HOURS FASTING (hours) [...] was reviewed again in detail with Shaina Glover Juli. She will continue to increase her physical activity as prescribed. Continue to avoid all fruit juices and regular sodas. Increase water consumption to 64 ounces per day. Encourage to keep food logs and get weighed on a weekly basis. Goals for next month: 1. Start food logs. 2. Increase water intake. 3. Cut down on processed carbs 4. Cut down on fried foods. 5. Avoid sugary snacks She will consider surgical [...] HYPOTHYROIDISM: TSH very low. [facility]. Will see PCP tomorrow THAD: in CPAP The patient will return to the [facility] in 6 weeks. She was instructed to call in the meantime with any questions or concerns prior to her next clinic visit. Gadiel Pathak MD in this encounter Nursing Notes * Alirio Corcoran LPN - 10/10/2017 10:30 AM EST Formatting of this note may be different from the original. Pt verified identity by last name and date. Chief Complaint Patient presents with Weight Management 6 week recheck-in and out of hospital in this encounter Plan of Treatment Upcoming Encounters Date Type Specialty Care Team Description 10/10/2017 Office Visit Gastroenterology Gadiel Pathak MD [address] [place] [address] Morbid obesity due to excess calories (HCC)*;NG (nonalcoholic steatohepatitis);Typ e 2 diabetes mellitus with hemoglobin A1c goal of less than 7.0% (HCC);HTN, goal below 140/90 10/11/2017 Office Visit Family Practice Nancy Matute MD [address] [place], [place] [address] 10/17/2017 Office Visit Gynecology Obstetrics Alberta Gould PA-C [address] [place] [address] [phone] 11/08/2017 Office Visit Gastroenterology Lyssa Stout CRNP [address] [place] [address] [phone] 11/21/2017 Office Visit Family Practice Nancy Matute MD [address] [place], [place] [address] 03/20/2018 Office Visit Dermatology Rachel Hill MD [address] [place] [address] [phone] 08/07/2018 Office Visit Sleep Disorders Lanette Fields [facility] [place] [address] [phone] Nurse [facility] [address] [place] [address] [phone] Health Maintenance Due Date Last Done Comments [...] due to excess calories (HCC) - Primary NG (nonalcoholic steatohep atitis) Other chronic nonalcoholic liver disease Type 2 diabetes mellitus wit h hemoglobin A1c goal of less than 7.0% (HCC) HTN, goal below 140/90 Unspecified essential hypertension in this encounter Insurance Payer Benefit Plan / Group Subscriber ID Type Phone Address [facility] [id number] [employer] [id number] [facility] [id number] as of this encounter
--- OUTSIDE RECORDS SUMMARY | 2023-05-10 23:40 | External Medical Summary | Summary of Care ---
Author Name Unknown Organization [place] [address] Phone Care Team Providers Care Flaking Roll Operator Name Role Phone Nancy Matute MD Primary Care Provider [phone] Reason for Visit * Reason Comments ADVICE Encounter Details Date Type Department Care Team Description 09/16/2017 Telephone [id number] [place] [address] Nancy Matute MD [address] [place] [address] [phone] ADVICE Allergies Active Allergy Reactions Severity Noted [...] Inhaler 1 06/29/2016 Active Vitamin D, Ergocalciferol, 49395 UNITS CapsuleIndications:Vi tamin D deficiency 1capsule every other week 8 Cap 6 09/27/2016 Active potassium chloride ER 10 MEQ TBCRIndications:Hypok alemia Take 1 Tab by mouth 2 times a day. With food. 60 Tab 5 01/06/2017 Active atenolol (TENORMIN) 25 MG Tablet Take 1 Tab by mouth at bedtime. 30 Tab 5 01/06/2017 Active Blood Glucose Monitoring [...] other meds) 30 Tab 5 06/20/2017 Active albuterol-ipratropium (DUONEB) 2.5-0.5 MG/3ML nebulizer solutionIndications:A sthma exacerbation Use 1 vial in nebulizer 2 Vial 0 06/20/2017 Active escitalopram (LEXAPRO) 10 MG Tablet [...] allergies 30 Tab 11 07/19/2017 Active nystatin 453960 UNIT/GM creamIndications:Cand idal vulvovaginitis Apply topically to affected area 2 times a day. To affacted area for two weeks. 15 g 2 08/24/2017 Active atorvaSTATin (LIPITOR) 40 MG TabletIndications:Dys lipidemia, goal LDL below 70 Take 1 Tab by mouth at bedtime. 90 Tab 1 09/08/2017 Active Hydrocodone-Acetamino phen (NORCO) 10-325 MG per tabletIndications:Spi nal stenosis of lumbar region without neurogenic claudication,DDD (degenerative disc disease), lumbar,MEDICATION USE AGREEMENT Take 1 Tab by mouth 2 times a day as needed for Pain. 60 Tab 0 09/08/2017 Active benzonatate (TESSALON PERLES) 100 MG CapsuleIndications:Br onchitis, complicated take 1 capsule by mouth three times a day if needed for cough 30 Cap 1 09/08/2017 Active cyclobenzaprine (FLEXERIL) 10 MG Tablet Take 1 Tab by mouth at bedtime. 30 Tab 0 09/08/2017 Active as of this encounter Active Problems Problem Noted Date History of Clostridium difficile colitis 08/29/2017 Debility 07/19/2017 Body mass index (BMI) of 50.0 to 59.9 in adult ([facility]) 06/12/2017 Overview: Per Obesity protocol [...] 03/27/2012 Chronic rhinitis 03/27/2012 Cerebral palsy ([facility]) 01/24/2012 Obstructive sleep apnea 01/18/2011 [...] pain 01/24/2012 01/17/2017 Genetic Sleep Disorder Research Other*[id number] 05/13/2011 04/07/2016 Lumbosacral spondylosis 12/27/2010 05/25/20 12 Dyslipidemia, goal LDL below 130 06/01/2010 03/28/2012 Asthma with severity to be determined 03/04/2010 11/01/2011 Overview: Per Asthma Taxonomy ICD-10 update of inactive term Asthma in remission 03/04/2010 01/09/2013 Overview: Per Provider Protocol. Obesity, morbid (more than 1 00 lbs over ideal weight or BMI > 40) ([facility]) 12/08/2009 07/02/2014 Overview: Per Obesity [...] Miscellaneous Notes * Telephone Encounter - Silvia Ramires OSA - 09/18/2017 3:08 PM EST Patient scheduled for Next Office Visit: 09/22/2017 Scheduled Provider(s): Nancy Matute MD * Telephone Encounter - Susan Rosales RN - 09/18/2017 8:47 AM EST No just make sure that it is 40 min in this encounter Plan of Treatment Upcoming Encounters Date Type Specialty Care Team Description 09/22/2017 Office Visit [facility] Nancy Matute MD [address] [place] [address] [phone] 09/26/2017 Office Visit Dermatology To Gee MD [address] [place] [address] [phone] 10/10/2017 Office Visit Gastroenterology Gadiel Pathak MD [address] [place] [address] [phone] 10/17/2017 Office Visit Gynecology Obstetrics Alberta Gould, PA-C [address] [place] [address] [phone] 11/21/2017 Office Visit Family Practice Nancy Matute MD [address] [place] [address] [phone] 08/07/2018 Office Visit Sleep Disorders Lanette Fields CRNP [address] [place] [address] [phone] Nurse [facility] [address] [place] [address] [phone] Health Maintenance Due Date Last Done Comments [...] Subscriber ID Type Phone Address [facility] [id number] [employer] [id number] [facility] [id number] as of this encounter
--- OUTSIDE RECORDS SUMMARY | 2023-05-10 23:40 | External Medical Summary | Summary of Care ---
Author Name Unknown Organization [place] [address] Phone Care Team Providers Care Bead Filler Name Role Phone Nancy Matute MD Primary Care Provider [phone] Reason for Visit * Reason Comments FORMS REQUEST Encounter Details Date Type Department Care Team Description 09/18/2017 Telephone [address] [place] [address] Nancy Matute MD [address] [place] [address] [phone] FORMS REQUEST Allergies Active Allergy Reactions Severity [...] Inhaler 1 06/29/2016 Active Vitamin D, Ergocalciferol, 89169 UNITS CapsuleIndications:Vi tamin D deficiency 1capsule every other week 8 Cap 6 09/27/2016 Active potassium chloride ER 10 MEQ TBCRIndications:Hypok alemia Take 1 Tab by mouth 2 times a day. With food. 60 Tab 5 01/06/2017 Active atenolol (TENORMIN) 25 MG Tablet Take 1 Tab by mouth at bedtime. 30 Tab 5 01/06/2017 Active Blood Glucose Monitoring Suppl (Neograft TechnologiesTOUCH VERIO) W/DEVICE KITIndications:Type 2 diabetes mellitus with hemoglobin A1c goal of less than 7.0% (HCC) Use as directed. Use daily to check blood sugars DX:E11.9 1 Kit 0 01/17/2017 Active Glucose Blood (Neograft TechnologiesTOUCH ULTRA BLUE) STRPIndications:Type 2 diabetes mellitus with hemoglobin A1c goal of less than 7.0% (HCC) Use as directed 4 times a day as needed for Other (Use daily to check blood sugars DX:E11.9). Use up to four times a day as directed 100 Strip 11 01/17/2017 Active Neograft TechnologiesTOUCH ULTRASOFT LANCETS MISCIndications:Type 2 diabetes mellitus [...] allergies 30 Tab 11 07/19/2017 Active nystatin 243204 UNIT/GM creamIndications:Cand idal vulvovaginitis Apply topically to [...] (BMI) of 50.0 to 59.9 in adult ([facility]) 06/12/2017 Overview: Per Obesity protocol [...] 03/27/2012 Cerebral palsy ([facility]) 01/24/2012 Obstructive sleep apnea 01/18/2011 [...] pain 01/24/2012 01/17/2017 Genetic Sleep Disorder Research Other*[id number] 05/13/2011 04/07/2016 Lumbosacral spondylosis 12/27/2010 05/25/20 12 [...] Telephone Encounter - Nancy Matute MD - 09/18/2017 2:29 PM EST Signed. Nancy Matute MD * Telephone Encounter - Kiesha Schmitt LPN - 09/18/2017 7:47 AM EST Form on Dr Matute's desk to review,sign and date. [facility] order in this encounter Plan of Treatment Upcoming Encounters Date Type Specialty Care Team Description 09/22/2017 Office Visit Family Practice Nancy Matute MD [address] [place] [address] [phone] 09/26/2017 Office Visit Dermatology To Gee MD [address] [place] [address] [phone] 10/10/2017 Office Visit Gastroenterology Gadiel Pathak MD [address] [place] [address] [phone] 10/17/2017 Office Visit Gynecology Obstetrics Alberta Gould PA-C [address] [place] [address] [phone] 11/21/2017 Office Visit Family Practice Nancy Matute MD [address] [place] [address] [phone] 08/07/2018 Office Visit Sleep Disorders Lanette Fields CRNP [address] [place] [address] [phone] [facility] [address] [place] [address] [phone] Health Maintenance Due Date Last Done Comments [...] Subscriber ID Type Phone Address [facility] [id number] [employer] [id number] [facility] [id number] as of this encounter
--- OUTSIDE RECORDS SUMMARY | 2023-05-10 23:40 | External Medical Summary | Summary of Care ---
Author Name Unknown Organization [place] [address] Phone Care Team Providers Care Journeyman Apprentice Electricians Name Role Phone Nancy Matute MD Primary Care Provider [phone] Reason for Visit * Reason Comments FORMS REQUEST home health Encounter Details Date Type Department Care Team Description 10/02/2017 Telephone [address] [place] [address] Nancy Matute MD [address] [place] [address] [phone] FORMS REQUEST (home health ) Allergies Active Allergy Reactions Severity Noted [...] Inhaler 1 06/29/2016 Active Vitamin D, Ergocalciferol, 92028 UNITS CapsuleIndications:Vi tamin D deficiency 1capsule every [...] allergies 30 Tab 11 07/19/2017 Active nystatin 563421 UNIT/GM creamIndications:Cand idal vulvovaginitis Apply topically to [...] (BMI) of 50.0 to 59.9 in adult ([facility]) 06/12/2017 Overview: Per Obesity protocol #1 Chronic pain syndrome 01/17/2017 MEDICATION USE AGREEMENT 01/17/2017 Overview: 01/17/17 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 01/17/2017 Acquired hypothyroidism 12/12/2016 Depression with anxiety 08/19/2016 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 1 10/09/2015 Restrictive lung disease 12/10/2014 Allergic rhinitis 05/29/2014 Type 2 diabetes mellitus with hemoglobin A1c goal of less than 7.0% ([facility]) 09/26/2013 Overview: ICD-10 update of inactive term Vitamin D deficiency 09/26/2013 Lymphedema 03/11/2013 Intermittent asthma with reliever use up to twice per week 01/09/2013 Stasis dermatitis 05/07/2012 NG (nonalcoholic steatohepatitis) 04/12 Diverticulosis of colon 05/02/2012 HTN, goal below 140/90 03/27/2012 Chronic rhinitis 03/27/2012 Cerebral palsy ([facility]) 01/24/2012 Obstructive sleep apnea 01/18/2011 Overview: [...] mass index (BMI) of 45.0-49.9 in adult ([facility] ) 12/09/2015 01/17/2017 Overview: bmi= 48.04 12/09/15 Need for shingles vaccine 12/09/20152015 Bilateral shoulder pain 08/25/2015 06/07/20 16 Bilateral shoulder pain 07/16/2015 06/07/20 16 Cerebral palsy ([facility]) 04/23/2015 03/28/2017 Candidal vulvovaginitis 02/12/2015 06/07/20 16 Obesity, morbid (more than 1 00 lbs over ideal weight or BMI > 40) ([facility]) 02/09/2015 03/28/2017 THAD (obstructive sleep apnea) [...] weight or BMI > 40) ([facility]) 10/28/2013 01/17/2017 Overview: bmi= 53.93 10/28/13 [...] pain 01/24/2012 01/17/2017 Genetic Sleep Disorder Research Other*[id number] 05/13/2011 04/07/2016 Lumbosacral spondylosis 12/27/2010 05/25/20 12 [...] Telephone Encounter - Nancy Matute MD - 10/03/2017 9:51 PM EST Signed. Nancy Matute MD * Telephone Encounter - Michaelle Lindquist LPN - 10/03/2017 2:56 PM EST Placed in forms file for Dr Matute's review and signature. * Telephone Encounter - Dulce Call OSA - 10/02/2017 3:39 PM EST Plan of Care Fax, Placed in Matute bin in this encounter Plan of Treatment Upcoming Encounters Date Type Specialty Care Team Description 10/10/2017 Office Visit Gastroenterology Gadiel Pathak MD [address] [facility] [place] [address] 10/17/2017 Office Visit Gynecology Obstetrics Alberta Gould, PARominaC [address] [place] [address] [phone] 11/21/2017 Office Visit Family Practice Nancy Matute MD [address] [place], [place] [address] 08/07/2018 Office Visit Sleep Disorders Lanette Fields CRNP [address] [facility] [place] [address] [facility] Nurse [facility] [address] [facility] [place] [address] [phone] Health Maintenance Due Date Last Done Comments [...] Type Phone Address [facility] [id number] [employer] [id number] [facility] [id number] as of this encounter
--- OUTSIDE RECORDS SUMMARY | 2023-05-10 23:40 | External Medical Summary | Summary of Care ---
Author Name Unknown Organization [place] [address] Phone Care Team Providers Care Echo Tech Name Role Phone Nancy Matute MD Primary Care Provider [phone] Reason for Visit * Reason Comments ADVICE Encounter Details Date Type Department Care Team Description 10/04/2017 Telephone [address] [place] [address] Nancy Matute MD [address] [place] [address] [phone] ADVICE Allergies Active Allergy Reactions Severity Noted [...] Inhaler 1 06/29/2016 Active Vitamin D, Ergocalciferol, 57850 UNITS CapsuleIndications: Vitamin D deficiency 1capsule every [...] 1 Kit 0 01/17/2017 Active Glucose Blood (AirSageTOUCH ULTRA BLUE) STRPIndications:Typ e 2 diabetes mellitus [...] allergies 30 Tab 11 07/19/2017 Active nystatin 644370 UNIT/GM creamIndications:Ca ndidal vulvovaginitis Apply topically to [...] at bedtime. 30 Tab 0 09/08/2017 Active atenolol (TENORMIN) 25 MG Tablet Take [...] (BMI) of 50.0 to 59.9 in adult ([facility]) 06/12/2017 Overview: Per Obesity protocol [...] 03/27/2012 Cerebral palsy ([facility]) 01/24/2012 Obstructive sleep apnea 01/18/2011 [...] shoulder pain 07/16/2015 06/07/20 16 Cerebral palsy ([facility]) 04/23/2015 03/28/2017 Candidal vulvovaginitis 02/12/2015 06/07/20 16 Obesity, morbid (more than 1 00 lbs over ideal weight or BMI > 40) ([facility]) 02/09/2015 03/28/2017 THAD (obstructive sleep [...] pain 01/24/2012 01/17/2017 Genetic Sleep Disorder Research Other*[id number] 05/13/2011 04/07/2016 Lumbosacral spondylosis 12/27/2010 05/25/20 12 [...] Telephone Encounter - Susan Rosales RN - 10/04/2017 1:29 PM EST Called patient left message to return call to triage need to know for the referral Who is the match up person? Reason is for preop- what surgery is she having done? Her last visit to PCP was 07/19/18 does she need ov here also? * Telephone Encounter - Silvia Patten OSA - 10/04/2017 1:07 PM EST New referral request: Our records indicate that you have an upcoming appointment and a referral is required for this visit. Please review pended referral for the following: Patient Name: Shaina Bustos Patient Primary care provider: Nancy Matute MD Name of preferred specialist: N/A Type of specialist: Billing Machine Operator Location of specialist: n/a Specialist's Phone # : Specialist's Fax #: Reason for visit: for pre op clearance Date of visit: before 10/30/2017 in this encounter Plan of Treatment Upcoming Encounters Date Type Specialty Care Team Description 10/10/2017 Office Visit Cardiology Myke Castillo, Andrea Rowe DO [address] [place] [address] [phone] 10/10/2017 Office Visit Gastroenterology Gadiel Pathak MD [address] [place], [place] [address] 10/11/2017 Office Visit Family Practice Nancy Matute MD [address] [place] [address] [phone] 10/17/2017 Office Visit Gynecology Obstetrics Alberta Gould, PA-C [address] [place] [address] [phone] 11/08/2017 Office Visit Gastroenterology Lyssa Stout CRNP [address] [place] [address] [phone] 11/21/2017 Office Visit Family Practice Nancy Matute MD [address] [place] [address] [phone] 03/20/2018 Office Visit Dermatology Rachel Hill MD [address] [place] [address] [phone] 08/07/2018 Office Visit Sleep Disorders Lanette Fields CRNP [address] [place] [address] [phone] [place], Nurse Sleep Disorders [address] [place] [address] [phone] Health Maintenance Due Date Last Done Comments [...] Group Subscriber ID Type Phone Address [facility] [id number] [employer] [facility] [id number] [facility] [id number] as of this encounter
--- OUTSIDE RECORDS SUMMARY | 2023-05-10 23:40 | External Medical Summary | Summary of Care ---
Author Name Unknown Organization [place] [address] Phone Care Team Providers Care Guide Alpine Name Role Phone Nancy Matute MD Primary Care Provider [phone] Encounter Details Date Type Department Care Team Description 10/04/2017 Scan Encounter Unspecified Department <No scans attached> [...] Inhaler 1 06/29/2016 Active Vitamin D, Ergocalciferol, 32667 UNITS CapsuleIndications:Vi tamin D deficiency 1capsule every [...] sta exacerbation Use 1 vial in nebulizer 2 [...] allergies 30 Tab 11 07/19/2017 Active nystatin 927718 UNIT/GM creamIndications:Cand idal vulvovaginitis Apply topically to [...] (BMI) of 50.0 to 59.9 in adult ([facility]) 06/12/2017 Overview: Per Obesity protocol #1 [...] 140/90 03/27/2012 Chronic rhinitis 03/27/2012 Cerebral palsy ([facility]) 01/24/2012 Obstructive sleep apnea 01/18/2011 Overview: [...] Atypical chest pain 08/19/2016 01/17/2017 Hepatic cirrhosis (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 [facility] [address] [phone] 10/17/2017 Office Visit Gynecology Obstetrics Alberta Gould, PA-C [address] [place] [address] [phone] 11/21/2017 Office Visit Family Practice Nancy Matute MD [address] [facility] [address] 08/07/2018 Office Visit Sleep Disorders Lanette Fields CRNP [address] [place] [address] [phone] Kent[place] Nurse Sleep Disorders [address] [place] [address] [phone] Health Maintenance Due Date Last Done Comments [...] / Group Subscriber ID Type Phone Address [facility] [id number] [employer] [facility] [id number] [facility] [id number] as of this encounter
--- OUTSIDE RECORDS SUMMARY | 2023-05-10 23:40 | External Medical Summary | Summary of Care ---
Author Name Unknown Organization [place] [address] Phone Care Team Providers Care Reservoir Caretaker Name Role Phone Nancy Matute MD Primary Care Provider [phone] Encounter Details Date Type Department Care Team Description 09/20/2017 Scan Encounter Unspecified Department <No scans attached> [...] Inhaler 1 06/29/2016 Active Vitamin D, Ergocalciferol, 68813 UNITS CapsuleIndications:Vi tamin D deficiency 1capsule every [...] allergies 30 Tab 11 07/19/2017 Active nystatin 583440 UNIT/GM creamIndications:Cand idal vulvovaginitis Apply topically to [...] 01/17/2017 Hepatic cirrhosis ([facility] [...] pain 01/24/2012 01/17/2017 Genetic Sleep Disorder Research Other*[id number] 05/13/2011 04/07/2016 Lumbosacral spondylosis 12/27/2010 05/25/20 12 [...] Description 09/22/2017 Office Visit Family Practice Nancy Mattue MD [address] [place], [place] [address] 09/26/2017 Office Visit Dermatology To Gee MD [address] [place] [address] [phone] 10/10/2017 Office Visit [facility]enterology Gadiel [facility]ak MD [address] [facility] [address] 10/17/2017 Office Visit Gynecology Obstetrics Alberta Gould, PA-C [address] [facility] [place] [address] [phone] 11/21/2017 Office Visit Family Practice Nancy Matute MD [address] [facility] [address] 08/07/2018 Office Visit Sleep Disorders Lanette Fields CRNP [address] [place] [address] [phone] Kent[place] Nurse Sleep Disorders [address] [place] [address] [phone] Health Maintenance Due Date Last Done Comments [...] ID Type Phone Address [facility] [id number] [employer] [facility] [id number] [facility] [id number] as of this encounter
--- OUTSIDE RECORDS SUMMARY | 2023-05-10 23:40 | External Medical Summary | Summary of Care ---
Author Name Unknown Organization [place] [address] Phone Care Team Providers Care Stamp Analyst Name Role Phone Nancy Matute MD Primary Care Provider [phone] Encounter Details Date Type Department Care Team Description 09/14/2017 Scan Encounter Unspecified Department <No scans attached> [...] Inhaler 1 06/29/2016 Active Vitamin D, Ergocalciferol, 68998 UNITS CapsuleIndications:Vi tamin D deficiency 1capsule every [...] allergies 30 Tab 11 07/19/2017 Active nystatin 768153 UNIT/GM creamIndications:Cand idal vulvovaginitis Apply topically to [...] of 50.0 to 59.9 in adult ([facility]) 06/12/2017 Overview: Per Obesity protocol #1 [...] 03/27/2012 Chronic rhinitis 03/27/2012 Cerebral palsy ([facility]) 01/24/2012 Obstructive sleep apnea 01/18/2011 Overview: [...] chest pain 08/19/2016 01/17/2017 Hepatic cirrhosis ([facility]) 08/19/2016 [...] pain 01/24/2012 01/17/2017 Genetic Sleep Disorder Research Other*[id number] 05/13/2011 04/07/2016 Lumbosacral spondylosis 12/27/2010 05/25/20 12 [...] Encounters Date Type Specialty Care Team Description 09/26/2017 Office Visit Dermatology To Gee MD [address] [place] [address] [phone] 10/10/2017 Office Visit Gastroenterology Gadiel Pathak MD [address] [facility] [address] [phone] 10/17/2017 Office Visit Gynecology Obstetrics Alberta Gould, PA-C [address] [facility] [place] [address] [phone] 11/21/2017 Office Visit Family Practice Nancy Matute MD [address] [place] [address] [phone] 08/07/2018 Office Visit Sleep Disorders Lanette Fields CRNP [address] [place] [address] [phone] Nurse Kentrell Sleep Disorders [address] [place] [address] [phone] Health Maintenance Due Date Last Done Comments [...] Subscriber ID Type Phone Address [facility] [id number] [employer] [facility] [id number] [facility] [id number] as of this encounter
--- OUTSIDE RECORDS SUMMARY | 2023-05-10 23:40 | External Medical Summary | Summary of Care ---
Author Name Unknown Organization [place] [address] Phone Care Team Providers Care Sight Mounter Name Role Phone Nancy Matute MD Primary Care Provider Reason for Visit * Reason Comments NEW PATIENT Pre-op Clearance Encounter Details Date Type Department Care Team Description 10/10/2017 Office Visit Cardiology, [facility] [address] [place] [address] Andrea Stringer Jr. 132 [place] [address] [phone] Pre-operative cardiovascular examination* Allergies Active Allergy Reactions Severity Noted [...] Inhaler 1 06/29/2016 Active Vitamin D, Ergocalciferol, 86842 UNITS CapsuleIndications: Vitamin D deficiency 1capsule every [...] 100 Strip 01/17/2017 Active ONETOUCH ULTRASOFT LANCETS MISCIndications:Typ e [...] less than 7.0% ([facility]) Take 1 Tab by mouth [...] allergies 30 Tab 11 07/19/2017 Active nystatin 952657 UNIT/GM creamIndications:Ca ndidal vulvovaginitis Apply topically to [...] of 50.0 to 59.9 in adult ([facility]) 06/12/2017 Overview: Per Obesity protocol [...] chest pain 08/19/2016 01/17/2017 Hepatic cirrhosis ([facility]) 08/19/2016 [...] pain 01/24/2012 01/17/2017 Genetic Sleep Disorder Research Other*[id number] 05/13/2011 04/07/2016 Lumbosacral spondylosis 12/27/2010 05/25/20 12 [...] Given: Yes Alcohol Use Drinks/Week oz/Week Comments Yes rare Sex Assigned at Date Recorded Not on file as of this encounter Last Filed Vital Signs Vital Sign Reading Time Taken Blood Pressure 124/78 10/10/2017 8:59 AM EST Pulse 78 10/10/2017 8:59 AM EST Temperature - - Respiratory Rate 20 10/10/2017 8:59 AM EST Oxygen Saturation - - Inhaled Oxygen Concentration - - Weight 120.5 kg (265 lb 11.2 oz) 2017 8:59 AM EST Height - - Body Mass Index 53.66 10/10/2017 8:59 AM EST in this encounter Progress Notes * Andrea Stringer Jr., DO - 10/10/2017 9:31 AM EST Note dictated on 10/10/2017 Andrea Stringer Jr, DO in this encounter Nursing Notes * Chris Espino, ELECTRIC WELDER HELPER - 10/10/2017 8:58 AM EST Examination Room: 16 Name: Shaina Bustos Date of : (1955). Reason for Visit: new pt/pre op Interim Hospitalization(s): Problems/Concerns: here today for pre op appt Chest Pain/SOB: denies chest pain. SOB with little exertion. [facility] is a way you can talk to your provider online through e-mail. Would you like to sign up? I can activate it for you? NO INTERNET ACCESS in this encounter Plan of Treatment Upcoming Encounters Date Type Specialty Care Team Description 10/10/2017 Office Visit Gastroenterology Gadiel Pathak MD [address] [place] [address] Arrived 10/11/2017 Office Visit Family Practice Nancy Matute MD [address] [place] [address] [phone] 10/17/2017 Office Visit Gynecology Obstetrics Alberta Gould PA-C [address] [place] [address] [phone] 11/08/2017 Office Visit Gastroenterology Lyssa Stout CRNP [address] [facility] [address] [phone] 11/21/2017 Office Visit Family Practice Nancy Matute MD [address] [place], [place] [address] 03/20/2018 Office Visit Dermatology Rachel Hill MD [address] [place] [address] [place] [address] [phone] 08/07/2018 Office Visit Sleep Disorders Lanette Fields CRNP [address] [facility] [address] [phone] [place] Nurse Sleep Disorders [address] [place] [address] [phone] Health Maintenance Due Date Last Done Comments [...] fileas of this encounter Visit Diagnoses Diagnosis Pre-operative cardiovascular examination - Primary in this encounter Insurance Payer Benefit Plan / Group Subscriber ID Type Phone Address [facility] [id number] [employer] [facility] [facility] [id number] [facility] [id number] as of this encounter
--- OUTSIDE RECORDS SUMMARY | 2023-05-10 23:40 | External Medical Summary | Summary of Care ---
Author Name Unknown Organization [place] [address] Phone Care Team Providers Care Bindery Assistant Name Role Phone Nancy Matute MD Primary Care Provider [phone] Reason for Visit * Reason Comments ADVICE Encounter Details Date Type Department Care Team Description 09/21/2017 Telephone [address] [place] [address] Nancy Matute MD [address] [place] [address] [phone] ADVICE Allergies Active Allergy Reactions Severity Noted [...] Inhaler 1 06/29/2016 Active Vitamin D, Ergocalciferol, 26653 UNITS CapsuleIndications:Vi tamin D deficiency 1capsule every [...] allergies 30 Tab 11 07/19/2017 Active nystatin 607753 UNIT/GM creamIndications:Cand idal vulvovaginitis Apply topically to [...] pain 01/24/2012 01/17/2017 Genetic Sleep Disorder Research Other*[id number] 05/13/2011 04/07/2016 Lumbosacral spondylosis 12/27/2010 05/25/20 12 [...] Miscellaneous Notes * Telephone Encounter - Imelda Villagran LPN - 09/21/2017 3:24 PM EST Noted. * Telephone Encounter - Silvia Patten OSA - 09/21/2017 3:09 PM SUSY Youssef with [facility] called to say patient was admitted today 09/21/2017. in this encounter Plan of Treatment Upcoming Encounters Date Type Specialty Care Team Description 09/26/2017 Office Visit Dermatology To Gee MD [address] [place] [address], [place] [address] [phone] 10/10/2017 Office Visit Gastroenterology Gadiel Pathak MD [address] [place] [address] 10/17/2017 Office Visit Gynecology Obstetrics Alberta Gould, PARominaC [address] [facility] [address] [phone] 11/21/2017 Office Visit Family Practice Nancy Matute MD [address] [place], [place] [address] 08/07/2018 Office Visit Sleep Disorders Lanette Fields CRNP 132 [facility] [place] [address] Kent[place] Nurse Sleep Disorders 132 [place] [address] [phone] Health Maintenance Due Date Last Done Comments [...] Address [facility] [id number] [employer] [id number] [facility] [id number] as of this encounter
--- OUTSIDE RECORDS SUMMARY | 2023-05-10 23:41 | External Medical Summary | Summary of Care ---
Author Name Unknown Organization [place] [address] Phone Care Team Providers Care Veterinary Nurse Name Role Phone Nancy Roberts MD Primary Care Provider [phone] Reason for Visit * Reason Comments MEDICATION REFILL Encounter Details Date Type Department Care Team Description 09/08/[address] [address] Nancy Roberts MD [address] [place] [address] [phone] Bronchitis, complicated Allergies Active Allergy Reactions Severity [...] Inhaler 1 06/29/2016 Active Vitamin D, Ergocalciferol, 56336 UNITS CapsuleIndications: Vitamin D deficiency 1capsule every [...] 1 Kit 0 01/17/2017 Active Glucose Blood (Spot CoffeeTOUCH ULTRA BLUE) STRPIndications:Typ e 2 diabetes mellitus [...] directed.DX:E11 .9 100 Strip 11 01/19/2017 Active atorvaSTATin (LIPITOR) 40 MG Tablet Take 1 Tab by mouth at bedtime. 90 Tab 1 01/23/2017 Active gabapentin (NEURONTIN) 300 MG CapsuleIndications: Cervical [...] other meds) 30 Tab 5 06/20/2017 Active albuterol-ipratropi um (DUONEB) 2.5-0.5 MG/3ML nebulizer solutionIndications :Asthma exacerbation Use 1 vial in nebulizer 2 Vial 0 06/20/2017 Active Hydrocodone-Acetami nophen (NORCO) 10-325 MG per tabletIndications:S jennifer stenosis of lumbar region without neurogenic claudication,DDD (degenerative disc disease), lumbar,MEDICATION USE AGREEMENT Take 1 Tab by mouth 2 times a day as needed for Pain. 60 Tab 0 07/17/2017 Active escitalopram (LEXAPRO) 10 MG Tablet Take [...] allergies 30 Tab 11 07/19/2017 Active nystatin 274508 UNIT/GM creamIndications:Ca ndidal vulvovaginitis Apply topically to affected area 2 times a day. To affacted area for two weeks. 15 g 2 08/24/2017 Active benzonatate (TESSALON PERLES) 100 MG CapsuleIndications: Bronchitis, complicated take 1 capsule by mouth three times a day if needed for cough 30 Cap 1 09/08/2017 Active cyclobenzaprine (FLEXERIL) 10 MG Tablet Take 1 Tab by mouth at bedtime. 30 Tab 0 09/08/2017 Active cyclobenzaprine (FLEXERIL) 10 MG Tablet Take 1 Tab by mouth at bedtime. 30 Tab 0 12/05/2016 09/08/20 17 Discontinued benzonatate (TESSALON PERLES) 100 MG CapsuleIndications: Bronchitis, complicated take 1 capsule by mouth three times a day if needed for cough 30 Cap 1 06/20/2017 09/08/20 17 Discontinued as of this encounter Active Problems [...] pain 01/24/2012 01/17/2017 Genetic Sleep Disorder Research Other*[id number] 05/13/2011 04/07/2016 Lumbosacral spondylosis 12/27/2010 05/25/20 12 [...] Telephone Encounter - Nancy Roberts MD - 09/08/2017 2:53 PM EST Signed Prescriptions: Disp Refills benzonatate (TESSALON PERLES) 100 MG Capsu*30 Cap 1 Sig: take 1 capsule by mouth three times a day if needed for cough Authorizing Provider: Nancy ROBERTS cyclobenzaprine (FLEXERIL) 10 MG Tablet 30 Tab 0 Sig: Take 1 Tab by mouth at bedtime. Authorizing Provider: Nancy ROBERTS * Telephone Encounter - NguyenShonna, [facility] - 09/08/2017 1:49 PM EST Pending Prescriptions: Disp Refills benzonatate (TESSALON PERLES) 100 MG Caps*30 Cap 1 Sig: take 1 capsule by mouth three times a day if needed for cough cyclobenzaprine (FLEXERIL) 10 MG Tablet 30 Tab 0 Sig: Take 1 Tab by mouth at bedtime. Last Office Visit: 07/19/2017 Next Office Visit: 09/19/2017 Scheduled Provider(s): Nancy Roberts MD If no future appointments scheduled, and last appointment is greater than a year ago, please schedule patient for a follow-up appointment Last date the cyclobenzaprine was ordered: 12/05/2016 Last date the benzonatate was ordered: 06/20/2017 Phone number(s): [phone] (home) Labs: CREATININE(mg/dL) Lucio Dt/Tm Resulted Value [...] Encounters Date Type Specialty Care Team Description 09/19/2017 Office Visit Gastroenterology Lyssa Stout CRNP [address] [place] [address] 09/19/2017 Office Visit Family Practice Nancy Roberts MD [address] [place] [address] 09/26/2017 Office Visit Dermatology To Gee MD 200 [place] [address] [phone] 10/10/2017 Office Visit Gastroenterology Gadiel Pathak MD [address] [place] [facility] [place] [address] [phone] 10/17/2017 Office Visit Gynecology Obstetrics Alberta Gould, PA-C [address] [facility] [place] [address] [phone] 11/21/2017 Office Visit Family Practice Nancy Roberts MD [address] [place], [place] [address] 08/07/2018 Office Visit Sleep Disorders Lanette Fields CRNP [address] [facility] [place] [address] [phone] Kent[place] Nurse Sleep Disorders [address] [facility] [place] [address] [phone] Health Maintenance Due Date Last Done Comments [...] Bronchitis, not specified as acute or chronic in this encounter Insurance Payer Benefit Plan / Group Subscriber ID Type Phone Address [facility] [id number] [employer] [facility] [id number] [facility] [id number] as of this encounter
--- OUTSIDE RECORDS SUMMARY | 2023-05-10 23:41 | External Medical Summary | Summary of Care ---
Author Name Unknown Organization [place] [address] Phone Care Team Providers Care Tailer Off Name Role Phone Nancy Matute MD Primary Care Provider [phone] Encounter Details Date Type Department Care Team Description 09/17/2017 Scan Encounter Unspecified Department <No scans attached> [...] Inhaler 1 06/29/2016 Active Vitamin D, Ergocalciferol, 12485 UNITS CapsuleIndications:Vi tamin D deficiency 1capsule every [...] allergies 30 Tab 11 07/19/2017 Active nystatin 311367 UNIT/GM creamIndications:Cand idal vulvovaginitis Apply topically to [...] 03/27/2012 Chronic rhinitis 03/27/2012 Cerebral palsy ([facility]) 01/24/2012 Obstructive sleep apnea 01/18/2011 [...] chest pain 08/19/2016 01/17/2017 Hepatic cirrhosis ([facility]) 08/19/2016 03/28/20 17 Polyuria 08/09/2016 [...] pain 01/24/2012 01/17/2017 Genetic Sleep Disorder Research Other*[id number] 05/13/2011 04/07/2016 Lumbosacral spondylosis 12/27/2010 05/25/20 12 [...] Office Visit Dermatology To Gee MD [address] [place] [address] [phone] 10/10/2017 Office Visit [facility]astroenterology Gadiel Pathak [facility] [address] [facility] [address] [phone] 10/17/2017 Office Visit Gynecology Obstetrics Alberta Gould, PA-C [address] [facility] [place] [address] [phone] 11/21/2017 Office Visit Family Practice Nancy Matute MD [address] [place] [address] [phone] 08/07/2018 Office Visit Sleep Disorders Lanette Fields CRNP [address] [place] [address] [phone] Nurse Kentrell Sleep Disorders [address] [place] [address] [phone] Health Maintenance Due Date Last Done Comments [...] Subscriber ID Type Phone Address [facility] [id number] [employer] [facility] [id number] [facility] [id number] as of this encounter
--- OUTSIDE RECORDS SUMMARY | 2023-05-10 23:41 | External Medical Summary | Summary of Care ---
Author Name Unknown Organization [place] [address] Phone Care Team Providers Care Fisher Purse Seine Name Role Phone Nancy Matute MD Primary Care Provider [phone] Reason for Visit * Reason Comments TEST RESULTS FYI Encounter Details Date Type Department Care Team Description 08/31/2017 Telephone [address] [place] [address] Nancy Matute MD [address] [place] [address] [phone] TEST RESULTS; FYI Allergies Active Allergy Reactions Severity Noted [...] Inhaler 1 06/29/2016 Active Vitamin D, Ergocalciferol, 60994 UNITS CapsuleIndications: Vitamin D deficiency 1capsule every [...] allergies 30 Tab 11 07/19/2017 Active nystatin 139847 UNIT/GM creamIndications:Ca ndidal vulvovaginitis Apply topically to affected area 2 times a day. To affacted area for two weeks. 15 g 2 08/24/2017 Active cyclobenzaprine (FLEXERIL) 10 MG Tablet Take 1 Tab by mouth at bedtime. 30 Tab 0 12/05/2016 09/08/20 17 Discontinued atorvaSTATin (LIPITOR) 40 MG Tablet Take 1 Tab by mouth at bedtime. 90 Tab 1 01/23/2017 09/08/20 17 Discontinued benzonatate (TESSALON PERLES) 100 MG CapsuleIndications: Bronchitis, complicated take 1 capsule by mouth three times a day if needed for cough 30 Cap 1 06/20/2017 09/08/20 17 Discontinued Hydrocodone-Acetami nophen (NORCO) 10-325 MG per tabletIndications:S jennifer stenosis of lumbar region without neurogenic claudication,DDD (degenerative disc disease), lumbar,MEDICATION USE AGREEMENT Take 1 Tab by mouth 2 times a day as needed for Pain. 60 Tab 0 07/17/2017 09/08/20 17 Discontinued as of this encounter [...] pain 01/24/2012 01/17/2017 Genetic Sleep Disorder Research Other*[id number] 05/13/2011 04/07/2016 Lumbosacral spondylosis 12/27/2010 05/25/20 12 [...] Telephone Encounter - Shelly Hirsch LPN - 09/14/2017 8:47 AM EST Patient calling. Said she had 4 diarrhea stools last night. Informed again of message below that the doctor said to try kaopectate or imodium. Said she won't take that stuff. It tastes terrible. Informed to try the imodium. Verbalized understanding. * Telephone Encounter - Shelly Hirsch LPN - 09/07/2017 2:28 PM EST Patient returned call. She already has an appt. Set up at [facility]. She is aware she can't have both. * Telephone Encounter - Susan Rosales RN - 09/06/2017 8:24 AM EST Left message for patient to return call to office - If she wants lymphedema is outpatient at [facility] or if unable to get out of home need PT from [facility] can not have both * Telephone Encounter - Nancy Matute MD - 09/05/2017 5:01 PM EST ... Usually insurance believes that if the patient can leave home for physical therapy, they do notneed home health... Nancy Matute MD * Telephone Encounter - Jovana Lambert RN - 09/05/2017 4:19 PM EST Spoke to patient home health [facility] she deals with does not do Lymphedema She said her insurance does not cover both outpatient PT and Home health Taking lasix every other day * Telephone Encounter - Nancy Matute MD - 09/05/2017 4:13 PM EST Does her insurance cover the physical therapy couple that will come to the house to do lymphedema therapy? Nancy Matute MD * Telephone Encounter - Jovana Lambert RN - 09/05/2017 3:41 PM EST Can you advise * Telephone Encounter - Josselin Gaspar LPN - 09/05/2017 11:53 AM EST PT called patient regarding referral. Her insurance won't cover her home health services as well didier going to PT to have her legs wrapped. She is asking how to proceed. * Telephone Encounter - Dominique Franco OSA - 09/05/2017 11:37 AM EST Patient called because she has not heard from [facility] yet. I found the number [phone], and gave it to her. She will call to check in with them to get scheduled. * Telephone Encounter - Talita Caballero OSA - 08/31/2017 10:13 AM EST Appointment request sent to [facility] They will contact pt to schedule * Telephone Encounter - Susan Rosales RN - 08/31/2017 9:57 AM EST Advised patient to try either kaopectate or Imodium Patient has a physical therapy referral for lymphedema- please schedule at [facility] and let her know * Telephone Encounter - Nancy Matute MD - 08/31/2017 9:32 AM EST Please notify- May take Kaopectate or Imodium to slow diarrheal stools. Is [place] recommendation for lower extremity edema is elevation and external compression with compression stockings or Zay wraps. Nancy Matute MD * Telephone Encounter - Susan Rosales RN - 08/31/2017 9:15 AM EST Spoke to Frida gave stool results- she is still moving her bowels about 7 times a day but formed now, denies any abdominal pain, no fever Is there anything she can do about the frequency. She is asking about were you said you would send her for her leg edema- she has not been scheduled yet ? * Telephone Encounter - Nancy Matute MD - 08/31/2017 8:10 AM EST Please notify- C diff test is negative. Great! Nancy Matute MD in this encounter Plan of Treatment Upcoming Encounters Date Type Specialty Care Team Description 09/19/2017 Office Visit Gastroenterology Lyssa Stout CRNP [address] [place] [address] [phone] 09/19/2017 Office Visit Family Practice Nancy Matute MD [address] [place], [place] [address] 09/26/2017 Office Visit Dermatology To Gee MD [address] [place] [address] [phone] 10/10/2017 Office Visit Gastroenterology Gadiel Pathak MD [address] [place], [place] [address] 10/17/2017 Office Visit Gynecology Obstetrics Alberta Gould PA-C [address] [place] [address] [phone] 11/21/2017 Office Visit Family Practice Nancy Matute MD [address], [place] [address] 08/07/2018 Office Visit Sleep Disorders Lanette Fields CRNP [address] [place] [address] [phone] Nurse [facility] Sleep [facility] [address] [place] [address] [phone] Health Maintenance Due Date Last Done Comments [...] Subscriber ID Type Phone Address [facility] [id number] [employer] [id number] [facility] [id number] as of this encounter
--- OUTSIDE RECORDS SUMMARY | 2023-05-10 23:41 | External Medical Summary | Summary of Care ---
Author Name Unknown Organization [place] [address] Phone Care Team Providers Care Die Mounter Name Role Phone Nancy Matute MD Primary Care Provider [phone] Reason for Visit * Reason Comments Fax Refill Encounter Details Date Type Department Care Team Description 09/08/2017 Telephone [address] [place] [address] Nancy Matute MD [address] [place] [address] [phone] Fax Refill Allergies Active Allergy Reactions Severity Noted [...] Inhaler 1 06/29/2016 Active Vitamin D, Ergocalciferol, 23708 UNITS CapsuleIndications: Vitamin D deficiency 1capsule every [...] allergies 30 Tab 11 07/19/2017 Active nystatin 147697 UNIT/GM creamIndications:Ca ndidal vulvovaginitis Apply topically to [...] pain 01/24/2012 01/17/2017 Genetic Sleep Disorder Research Other*[id number] 05/13/2011 04/07/2016 Lumbosacral spondylosis 12/27/2010 05/25/20 12 [...] Telephone Encounter - Kiesha Schmitt LPN - 09/08/2017 12:52 PM EST Pending Prescriptions: Disp Refills atorvaSTATin (LIPITOR) 40 MG Tablet 90 Tab 1 Sig: Take 1 Tab by mouth at bedtime. Last Office Visit: 07/19/2017 Next Office Visit: 09/19/2017 Scheduled Provider(s): Nancy Matute MD If no future appointments scheduled, and last appointment is greater than a year ago, please schedule patient for a follow-up appointment Last date the medication was ordered: 01/23/2017 Phone number(s): [phone] (home) Labs: CREATININE(mg/dL) Lucio Dt/Tm Resulted Value [...] Lyssa Stout CRNP [address] [place] [address] [phone] 09/19/2017 Office Visit [facility] Nancy Matute MD [address] [place] [address] [phone] 09/26/2017 Office Visit Dermatology To Gee MD [address] [place] [address] [phone] 10/10/2017 Office Visit Gastroenterology Gadiel Pathak MD [address] [place] [address] [phone] 10/17/2017 Office Visit Gynecology Obstetrics Alberta Gould, PA-C [address] [place] [address] [phone] 11/21/2017 Office Visit [facility] Nancy Matute MD [address] [place] [address] [phone] 08/07/2018 Office Visit Sleep Disorders Lanette Fields CRNP [address] [place] [address] [phone] Kentrell Nurse Sleep Disorders [address] [place] [address] [phone] Health Maintenance Due Date Last Done Comments [...] fileas of this encounter Visit Diagnoses Diagnosis Dyslipidemia, goal LDL below 70 - Primary Other and unspecified hyperlipidemia in this encounter Insurance Payer Benefit Plan / Group Subscriber ID Type Phone Address [facility] [id number] [employer] [id number] [facility] [id number] as of this encounter
--- OUTSIDE RECORDS SUMMARY | 2023-05-10 23:41 | External Medical Summary | Summary of Care ---
Author Name Unknown Organization [place] [address] Phone Care Team Providers Care Naval Police Coxswain Name Role Phone Nancy Matute MD Primary Care Provider [phone] Encounter Details Date Type Department Care Team Description 09/14/2017 Result Scan Unspecified Department <No scans attached> [...] Inhaler 1 06/29/2016 Active Vitamin D, Ergocalciferol, 03358 UNITS CapsuleIndications:Vi tamin D deficiency 1capsule every [...] allergies 30 Tab 11 07/19/2017 Active nystatin 817149 UNIT/GM creamIndications:Cand idal vulvovaginitis Apply topically to [...] pain 01/24/2012 01/17/2017 Genetic Sleep Disorder Research Other*[id number] 05/13/2011 04/07/2016 Lumbosacral spondylosis 12/27/2010 05/25/20 12 [...] Visit Gastroenterology Lyssa Stout CRNP [address] [facility] [place] [address] [phone] 09/19/2017 Office Visit Family Practice Nancy Matute MD [address] [place] [address] [phone] 09/26/2017 Office Visit Dermatology To Gee MD [address] [place] [address] [phone] 10/10/2017 Office Visit Gastroenterology Gadiel Pathak MD [address] [facility] [place] [address] [phone] 10/17/2017 Office Visit Gynecology Obstetrics Alberta Gould, PA-C [address] [facility] [place] [address] [phone] 11/21/2017 Office Visit Family Practice Nancy Matute MD [address] [place] [address] [phone] 08/07/2018 Office Visit Sleep Disorders Lanette Fields CRNP [address] [place] [address] [phone] Kentrell, Nurse Sleep Disorders [address] [place] [address] [phone] Health Maintenance Due Date Last Done Comments [...] this encounter Results * RADIOLOGY SCANNED RESULT (09/14/2017) in this encounter Insurance Payer Benefit Plan / Group Subscriber ID Type Phone Address [facility] [id number] AETNA AETNA [facility] [id number] [facility] [id number] as of this encounter
--- OUTSIDE RECORDS SUMMARY | 2023-05-10 23:41 | External Medical Summary | Summary of Care ---
Author Name Unknown Organization [place] [address] Phone Care Team Providers Care Manager Process Excellence Name Role Phone Nancy Matute MD Primary Care Provider [phone] Reason for Visit * Reason Comments TEST RESULTS FYI Encounter Details Date Type Department Care Team Description 08/31/2017 Telephone [address] [place] [address] Nancy Matute MD [address] [place] [address] [phone] TEST RESULTS; FYI Allergies Active Allergy Reactions [...] Inhaler 1 06/29/2016 Active Vitamin D, Ergocalciferol, 54716 UNITS CapsuleIndications:Vi tamin D deficiency 1capsule every other week 8 Cap 6 09/27/2016 Active cyclobenzaprine (FLEXERIL) 10 MG Tablet Take 1 Tab by mouth at bedtime. 30 Tab 0 12/05/2016 Active potassium chloride ER 10 MEQ TBCRIndications:Hypok alemia Take 1 Tab by mouth 2 times a day. With food. 60 Tab 5 01/06/2017 Active atenolol (TENORMIN) 25 MG Tablet Take 1 Tab by mouth at bedtime. 30 Tab 5 01/06/2017 Active Blood Glucose Monitoring Suppl (ip.accessTOUCH VERIO) W/DEVICE KITIndications:Type 2 diabetes mellitus with hemoglobin A1c goal of less than 7.0% (HCC) Use as directed. Use daily to check blood sugars DX:E11.9 1 Kit 0 01/17/2017 Active Glucose Blood (ip.accessTOUCH ULTRA BLUE) STRPIndications:Type 2 diabetes mellitus with hemoglobin A1c goal of less than 7.0% (HCC) Use as directed 4 times a day as needed for Other (Use daily to check blood sugars DX:E11.9). Use up to four times a day as directed 100 Strip 11 01/17/2017 Active ip.accessTOUCH ULTRASOFT LANCETS MISCIndications:Type 2 diabetes mellitus with [...] directed.DX:E11. 9 100 Strip 11 01/19/2017 Active atorvaSTATin (LIPITOR) 40 MG Tablet Take 1 Tab by mouth at bedtime. 90 Tab 1 01/23/2017 Active gabapentin (NEURONTIN) 300 MG CapsuleIndications:Ce rvical [...] other meds) 30 Tab 5 06/20/2017 Active benzonatate (TESSALON PERLES) 100 MG CapsuleIndications:Br onchitis, complicated take 1 capsule by mouth three times a day if needed for cough 30 Cap 1 06/20/2017 Active albuterol-ipratropium (DUONEB) 2.5-0.5 MG/3ML nebulizer solutionIndications:A sthma exacerbation Use 1 vial in nebulizer 2 Vial 0 06/20/2017 Active Hydrocodone-Acetamino phen (NORCO) 10-325 MG per [...] allergies 30 Tab 11 07/19/2017 Active nystatin 904767 UNIT/GM creamIndications:Cand idal vulvovaginitis Apply topically to affected area 2 times a day. To affacted area for two weeks. 15 g 2 08/24/2017 Active as of this encounter Active Problems [...] pain 01/24/2012 01/17/2017 Genetic Sleep Disorder Research Other*[id number] 05/13/2011 04/07/2016 Lumbosacral spondylosis 12/27/2010 05/25/20 12 [...] If she wants lymphedema is outpatient at [facility] or if unable to get out of home need PT from [facility] can not have both * Telephone Encounter - Nancy Matute MD - 09/05/2017 5:01 PM EST ... Usually insurance believes that if the patient can leave home for physical therapy, they do notneed home health... P Aubrey Matute MD * Telephone Encounter - Jovana Lambert RN - 09/05/2017 4:19 PM EST Spoke to patient home health [facility] she deals with does not [...] to proceed. * Telephone Encounter - Dominique Franco, THAD - 09/05/2017 11:37 AM EST Patient called because she has not heard from [facility] yet. I found the number [phone], and gave it to her. She will call to check in with them to get scheduled. * Telephone Encounter - Talita Caballero, THAD - 08/31/2017 10:13 AM EST Appointment request sent to [facility] They will contact pt to schedule * Telephone Encounter - Susan Rosales RN - 08/31/2017 9:57 AM EST Advised patient to try either kaopectate or Imodium Patient has a physical therapy referral for lymphedema- please schedule at [facility] and let her know * Telephone Encounter - Nancy Matute MD - 08/31/2017 9:32 AM EST Please notify- May take Kaopectate or Imodium to slow diarrheal stools. Is [place] recommendation for lower extremity edema is elevation [...] Gastroenterology Lyssa Stout CRNP [address] [place] [address] [phone] 09/19/2017 Office Visit [facility] Nancy Matute MD [address] [place], [place] [address] 09/26/2017 Office Visit Dermatology To Gee MD [address] [place] [address] [phone] 10/10/2017 Office Visit Gastroenterology Gadiel Pathak MD [address] [place], [place] [address] 10/17/2017 Office Visit Gynecology Obstetrics Alberta Gould, PA-C [address] [place] [address] [phone] 11/21/2017 Office Visit [facility] Nancy Matute MD [address] [place] [address] [phone] 08/07/2018 Office Visit Sleep Disorders Lanette Fields CRNP [address] [place] [address] [phone] Kentrell, Nurse Sleep Disorders [address] [place] [address] [phone] Health Maintenance Due Date Last Done Comments [...] Subscriber ID Type Phone Address [facility] [id number] [employer] [id number] [facility] [id number] as of this encounter
--- OUTSIDE RECORDS SUMMARY | 2023-05-10 23:41 | External Medical Summary | Summary of Care ---
Author Name Unknown Organization [place] [address] Phone Care Team Providers Care Rn Lactation Consultant Name Role Phone Nancy Matute MD Primary Care Provider [phone] Reason for Visit * Reason Comments ADVICE Encounter Details Date Type Department Care Team Description 09/14/2017 Telephone [address] [place] [address] Nancy Matute MD [address] [place] [address] [phone] ADVICE Allergies Active Allergy Reactions Severity Noted [...] Inhaler 1 06/29/2016 Active Vitamin D, Ergocalciferol, 20682 UNITS CapsuleIndications:Vi tamin D deficiency 1capsule every [...] allergies 30 Tab 11 07/19/2017 Active nystatin 913426 UNIT/GM creamIndications:Cand idal vulvovaginitis Apply topically to [...] to 59.9 in adult ([facility]) 06/12/2017 Overview: Per Obesity protocol #1 Chronic pain syndrome 01/17/2017 MEDICATION USE AGREEMENT 01/17/2017 Overview: 01/17/17 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 01/17/2017 Acquired hypothyroidism 12/12/2016 Depression with anxiety 08/19/2016 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 1 10/09/2015 Restrictive lung disease 12/10/2014 Allergic rhinitis 05/29/2014 Type 2 diabetes mellitus with hemoglobin A1c goal of less than 7.0% ([facility]) 09/26/2013 Overview: ICD-10 update of inactive term Vitamin D deficiency 09/26/2013 Lymphedema 03/11/2013 Intermittent asthma with reliever use up to twice per week 01/09/2013 Stasis dermatitis 05/07/2012 NG (nonalcoholic steatohepatitis) 04/12 Diverticulosis of colon 05/02/2012 HTN, goal below 140/90 03/27/2012 Chronic rhinitis 03/27/2012 Cerebral palsy ([facility]) 01/24/2012 Obstructive sleep apnea 01/18/2011 Overview: [...] of 45.0-49.9 in adult ([facility] ) 12/09/2015 01/17/2017 Overview: bmi= 48.04 12/09/15 Need for shingles vaccine 12/09/20152015 Bilateral shoulder pain 08/25/2015 06/07/20 16 Bilateral shoulder pain 07/16/2015 06/07/20 16 Cerebral palsy ([facility]) 04/23/2015 03/28/2017 Candidal vulvovaginitis 02/12/2015 06/07/20 16 Obesity, morbid (more than 1 00 lbs over ideal weight or BMI > 40) ([facility]) 02/09/2015 03/28/2017 THAD (obstructive sleep apnea) [...] or BMI > 40) ([facility]) 10/28/2013 01/17/2017 Overview: bmi= 53.93 10/28/13 [...] pain 01/24/2012 01/17/2017 Genetic Sleep Disorder Research Other*[id number] 05/13/2011 04/07/2016 Lumbosacral spondylosis 12/27/2010 05/25/20 12 Dyslipidemia, goal LDL below 130 06/01/2010 03/28/2012 Asthma with severity to be determined 03/04/2010 11/01/2011 Overview: Per Asthma Taxonomy ICD-10 update of inactive term Asthma in remission 03/04/2010 01/09/2013 Overview: Per Provider Protocol. Obesity, morbid (more than 1 00 lbs over ideal weight or BMI > 40) ([facility]) 12/08/2009 07/02/2014 Overview: Per Obesity Taxonomy [...] Telephone Encounter - Susan Rosales RN - 09/14/2017 2:03 PM EST Called Shaina she was on her way to the ER * Telephone Encounter - Gabi Meraz LPN - 09/14/2017 1:09 PM EST Pt calling states that last evening that she was having left flank pain that is now in her right side and she is getting sharp pains going across her abd. Pt states that she continues to have diarrhea for about the last 6 weeks and now is having some blood when she wipes. Pt was advised not long ago to try imodium which she has not done yet. Pt is thinking about going to [facility]. She will lets know what she decides. Please advise thank you in this encounter Plan of Treatment Upcoming Encounters Date Type Specialty Care Team Description 09/19/2017 Office Visit [facility] [address] [facility] [place] [address] [phone] 09/19/2017 Office Visit Family Practice Nancy Matute MD [address] [place] [address] [phone] 09/26/2017 Office Visit Dermatology To Gee MD [address] [place] [address] [phone] 10/10/2017 Office Visit Gastroenterology Gadiel Pathak MD [address] [place] [address] 10/17/2017 Office Visit Gynecology Obstetrics Alberta Gould, PA-C [address] [place] [address] [phone] 11/21/2017 Office Visit Family Practice Nancy Matute MD [address] [place] [address] [phone] 08/07/2018 Office Visit Sleep Disorders Lanette Fields CRNP [address] [place] [address] [phone] Nurse [facility] [address] [facility] [place] [address] [phone] Health Maintenance Due Date Last Done Comments [...] Subscriber ID Type Phone Address [facility] [id number] [employer] [id number] [facility] [id number] as of this encounter
--- OUTSIDE RECORDS SUMMARY | 2023-05-10 23:41 | External Medical Summary | Summary of Care ---
Author Name Unknown Organization [place] [address] Phone Care Team Providers Care Endless Belt Finisher Name Role Phone Nancy Matute MD Primary Care Provider [phone] Encounter Details Date Type Department Care Team [...] Inhaler 1 06/29/2016 Active Vitamin D, Ergocalciferol, 42977 UNITS CapsuleIndications:Vi tamin D deficiency 1capsule every [...] allergies 30 Tab 11 07/19/2017 Active nystatin 490529 UNIT/GM creamIndications:Cand idal vulvovaginitis Apply topically to [...] 03/27/2012 Cerebral palsy ([facility]) 01/24/2012 Obstructive sleep apnea 01/18/2011 Overview: 08/18/11 [...] ([facility]) 02/09/2015 03/28/2017 THAD (obstructive sleep apnea) 02/09/2015 [...] pain 01/24/2012 01/17/2017 Genetic Sleep Disorder Research Other*[id number] 05/13/2011 04/07/2016 Lumbosacral spondylosis 12/27/2010 05/25/20 12 [...] [facility]NP [address] [facility] [address] [phone] 09/19/2017 Office Visit Family Practice Nancy Matute MD [address] [place] [address] [phone] 09/26/2017 Office Visit Dermatology To Gee MD [address] [place] [address] [phone] 10/10/2017 Office Visit Gastroenterology Gadiel Pathak MD [address] [facility] [place] [address] [phone] 10/17/2017 Office Visit Gynecology Obstetrics Alberta Gould, PA-C [address] [facility] [place] [address] [phone] 11/21/2017 Office Visit Family Practice Nancy Matute MD [address] [place] [address] [phone] 08/07/2018 Office Visit Sleep Disorders Lanette Fields CRNP [address] [place] [address] [phone] Kentrell, Nurse Sleep Disorders [address] [place] [address] [phone] Health Maintenance Due Date Last Done Comments [...] Type Phone Address [facility] [id number] [employer] [id number] [facility][1] [id number] as of this encounter
--- OUTSIDE RECORDS SUMMARY | 2023-05-10 23:41 | External Medical Summary | Summary of Care ---
Author Name Unknown Organization [place] [address] Phone Care Team Providers Care Drafter Landscape Name Role Phone Nancy Matute MD Primary Care Provider [phone] Encounter Details Date Type Department Care Team Description 09/14/2017 Orders Only [place] [address] [place] [address] Nancy Matute MD [address] [place] [address] [phone] Allergies Active Allergy Reactions Severity Noted Date [...] Inhaler 1 06/29/2016 Active Vitamin D, Ergocalciferol, 72763 UNITS CapsuleIndications:Vi tamin D deficiency 1capsule every other week 8 Cap 6 09/27/2016 Active potassium chloride ER 10 MEQ TBCRIndications:Hypok alemia Take 1 Tab by mouth 2 times a day. With food. 60 Tab 5 01/06/2017 Active atenolol (TENORMIN) 25 MG Tablet Take 1 Tab by mouth at bedtime. 30 Tab 5 01/06/2017 Active Blood Glucose Monitoring Suppl (AirpoweredTOUCH VERIO) W/DEVICE KITIndications:Type 2 diabetes mellitus with hemoglobin A1c goal of less than 7.0% (HCC) Use as directed. 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 01/17/2017 Acquired hypothyroidism 12/12/2016 Depression with anxiety 08/19/2016 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 1 10/09/2015 Restrictive lung disease 12/10/2014 Allergic rhinitis 05/29/2014 Type 2 diabetes mellitus with hemoglobin A1c goal of less than 7.0% ([facility]) 09/26/2013 Overview: ICD-10 update of inactive term Vitamin D deficiency 09/26/2013 Lymphedema 03/11/2013 Intermittent asthma with reliever use up to twice per week 01/09/2013 Stasis dermatitis 05/07/2012 NG (nonalcoholic steatohepatitis) 04/12 Diverticulosis of colon 05/02/2012 HTN, goal below 140/90 03/27/2012 Chronic rhinitis 03/27/2012 Cerebral palsy ([facility]) 01/24/2012 Obstructive sleep apnea 01/18/2011 Overview: 08/18/11 [...] of 45.0-49.9 in adult ([facility] ) 12/09/2015 01/17/2017 Overview: bmi= 48.04 12/09/15 Need for shingles vaccine 12/09/20152015 Bilateral shoulder pain 08/25/2015 06/07/20 16 Bilateral shoulder pain 07/16/2015 06/07/20 16 Cerebral palsy ([facility]) 04/23/2015 03/28/2017 Candidal vulvovaginitis 02/12/2015 06/07/20 16 Obesity, morbid (more than 1 00 lbs over ideal weight or BMI > 40) ([facility]) 02/09/2015 03/28/2017 THAD (obstructive sleep apnea) 02/09/2015 [...] BMI > 40) ([facility]) 10/28/2013 01/17/2017 Overview: bmi= 53.93 10/28/13 [...] pain 01/24/2012 01/17/2017 Genetic Sleep Disorder Research Other*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 05/13/2011 04/07/2016 Lumbosacral spondylosis 12/27/2010 05/25/20 12 [...] [facility] [address] [facility] [address] [phone] 09/19/2017 Office Visit Family Practice Nancy Matute MD [facility] [id number] 09/26/2017 Office Visit Dermatology To Gee MD [address] [place] [address] [phone] 10/10/2017 Office Visit Gastroenterology Gadiel Pathak MD [address] [facility] [place] [address] 10/17/2017 Office Visit Gynecology Obstetrics Alberta Gould, PA-C [address] [place] [address] [phone] 11/21/2017 Office Visit Family Practice Nancy Matute MD [address] [place] [address] [phone] 08/07/2018 Office Visit Sleep Disorders Lanette Fields CRNP [address] [place] [address] [phone] Kentrell, Nurse Sleep Disorders [address] [place] [address] [phone] Pending Results Name Priority Associated Diagnoses Date/Ti me XR CHEST 1 VIEW Routine 09/14/2017 1 2:00 AM EST Health Maintenance Due [...] Subscriber ID Type Phone Address [facility] [id number] [employer] [id number] [facility] [id number] as of this encounter
--- OUTSIDE RECORDS SUMMARY | 2023-05-10 23:41 | External Medical Summary | Summary of Care ---
Author Name Unknown Organization [place] [address] Phone Care Team Providers Care Curve Saw Operator Name Role Phone Nancy Matute MD Primary Care Provider [phone] Reason for Visit * Reason Comments TEST RESULTS FYI Encounter Details Date Type Department Care Team Description 08/31/2017 Telephone [place] [address] [place] [address] Nancy Matute MD [address] [place] [address] [phone] TEST RESULTS; FYI Allergies Active Allergy Reactions [...] Inhaler 1 06/29/2016 Active Vitamin D, Ergocalciferol, 45700 UNITS CapsuleIndications:Vi tamin D deficiency 1capsule every [...] 5 01/06/2017 Active Blood Glucose Monitoring Suppl (Ion Linac SystemsTOUCH VERIO) W/DEVICE KITIndications:Type 2 diabetes mellitus with hemoglobin A1c goal of less than 7.0% (HCC) Use as directed. Use daily to check blood sugars DX:E11.9 1 Kit 0 01/17/2017 Active Glucose Blood (Ion Linac SystemsTOUCH ULTRA BLUE) STRPIndications:Type 2 diabetes mellitus with hemoglobin A1c goal of less than 7.0% (HCC) Use as directed 4 times a day as needed for Other (Use daily to check blood sugars DX:E11.9). Use up to four times a day as directed 100 Strip 11 01/17/2017 Active Ion Linac SystemsTOUCH ULTRASOFT LANCETS MISCIndications:Type 2 diabetes mellitus [...] allergies 30 Tab 11 07/19/2017 Active nystatin 661091 UNIT/GM creamIndications:Cand idal vulvovaginitis Apply topically to [...] pain 01/24/2012 01/17/2017 Genetic Sleep Disorder Research Other*[id number] 05/13/2011 04/07/2016 Lumbosacral spondylosis 12/27/2010 05/25/20 12 [...] already has an appt. Set up at [facility]. She is aware she can't have both. * Telephone Encounter - Susan Rosales RN - 09/06/2017 8:24 AM EST Left message for patient to return call to office - If she wants lymphedema is outpatient at [facility] or if unable to get out of home need PT from [facility] can not have both * Telephone Encounter - Nancy Matute MD - 09/05/2017 5:01 PM EST ... Usually insurance believes that if the patient can leave home for physical therapy, they do notneed home health... Nancy Matute MD * Telephone Encounter - Jovana Lambert RN - 09/05/2017 4:19 PM EST Spoke to patient home health [facility] she deals with does not [...] called because she has not heard from [facility] yet. I found the number [phone], and gave it to her. She will call to check in with them to get scheduled. * Telephone Encounter - Talita Caballero, THAD - 08/31/2017 10:13 AM EST Appointment request sent to [facility] They will contact pt to schedule * Telephone Encounter - Susan Rosales RN - 08/31/2017 9:57 AM EST Advised patient to try either kaopectate or Imodium Patient has a physical therapy referral for lymphedema- please schedule at [facility] and let her know * Telephone Encounter - Nancy Matute MD - 08/31/2017 9:32 AM EST Please notify- May take Kaopectate or Imodium to slow diarrheal stools. Is [place] recommendation for lower extremity edema is elevation [...] Office Visit Gastroenterology Lyssa Stout CRNP [address] [place] [address] [phone] 09/19/2017 Office Visit Family [facility] Nancy Matute MD [address] [place] [address] [phone] 09/26/2017 Office Visit Dermatology To Gee MD [address] [place] [address] [phone] 10/10/2017 Office Visit Gastroenterology Gadiel Pathak MD [address] [place] [address] 10/17/2017 Office Visit Gynecology Obstetrics Alberta Gould PA-C [address] [place] [address] [phone] 11/21/2017 Office Visit [facility] Nancy Matute MD [address] [place] [address] [phone] 08/07/2018 Office Visit Sleep Disorders Lanette Fiedls CRNP [address] [facility] [place] [address] [phone] Nurse Kentrell Sleep Disorders [address] [facility] [place] [address] [phone] Health Maintenance Due Date Last Done Comments [...] Subscriber ID Type Phone Address [facility] BLUE [facility] [id number] [employer] [id number] BLUE [facility] [id number] as of this encounter
--- OUTSIDE RECORDS SUMMARY | 2023-05-10 23:41 | External Medical Summary | Summary of Care ---
Author Name Unknown Organization [place] [address] Phone Care Team Providers Care Resist Coater Developer Name Role Phone Nancy Roberts MD Primary Care Provider [phone] Reason for Visit * Reason Comments MEDICATION REFILL Encounter Details Date Type Department Care Team Description 09/08/[address] [address] Nancy Roberts MD [address] [place] [address] [phone] Spinal stenosis of lumbar region without neurogenic [...] Inhaler 1 06/29/2016 Active Vitamin D, Ergocalciferol, 66203 UNITS CapsuleIndications: Vitamin D deficiency 1capsule every [...] 7.0% ([facility]) Take 1 Tab by mouth [...] allergies 30 Tab 11 07/19/2017 Active nystatin 936563 UNIT/GM creamIndications:Ca ndidal vulvovaginitis Apply topically to [...] pain 01/24/2012 01/17/2017 Genetic Sleep Disorder Research Other*[id number] 05/13/2011 04/07/2016 Lumbosacral spondylosis 12/27/2010 05/25/20 12 [...] Encounter - Nancy Roberts MD - 09/08/2017 4:45 PM EST Signed Prescriptions: Disp Refills Hydrocodone-Acetaminophen (NORCO) 10-325 M*60 Tab 0 Sig: Take 1 Tab by mouth 2 times a day as needed for Pain. Authorizing Provider: Nancy ROBERTS * Telephone Encounter - Hayden Grimes [facility] - 09/08/2017 4:24 PM EST Pending Prescriptions: Disp Refills Hydrocodone-Acetaminophen (NORCO) 10-325 *60 Tab 0 Sig: Take 1 Tab by mouth 2 times a day as needed for Pain. * Telephone Encounter - Hayden Grimes [facility] - 09/08/2017 4:24 PM EST I have reviewed the patients controlled substance dispensing history in the Prescription Drug Monitoring Program in compliance with the [facility] regulations before prescribing a controlled substance. PDMP checked on 09/08/2017. Patient requesting: Ruston 10/325, filled 07/17/17, for #60 for a 30 day supply. Other recent controlled medication fills: none Medication due for refill: YES Please approve if appropriate. Thanks, Hayden Grimes, PharmD Staff Pharmacist Pharmacy Refill Call Center [phone] ext [phone] 09/08/2017,4:24 PM * Telephone Encounter - Pau Reddy [facility] - 09/08/2017 1:36 PM EST Pending Prescriptions: Disp Refills Hydrocodone-Acetaminophen (NORCO) 10-325 *60 Tab 0 Sig: Take 1 Tab by mouth 2 times a day as needed for Pain. Last Office Visit: 07/19/2017 Next Office Visit: 09/19/2017 Scheduled Provider(s): Nancy Roberts MD If no future appointments scheduled, and last appointment is greater than a year ago, please schedule patient for a follow-up appointment Last date the medication was ordered: 07/17/17 Phone number(s): [phone] (home) Labs: CREATININE(mg/dL) Lucio Dt/Tm Resulted Value [...] Lyssa Stout CRNP [address] [place] [address] [phone] 09/19/2017 Office Visit Family Practice Nancy Roberts MD [address] [place] [address] [phone] 09/26/2017 Office Visit Dermatology To Gee MD [address] [place] [address] [phone] 10/10/2017 Office Visit Gastroenterology Gadiel Pathak MD [address] [place], [place] [address] 10/17/2017 Office Visit Gynecology Obstetrics Alberta Gould PA-C [address] [facility] [address] [phone] 11/21/2017 Office Visit [facility] Nancy Roberts MD [address] [place], [place] [address] 08/07/2018 Office Visit Sleep Disorders Lanette Fields CRNP [address] [place] [address] [phone] Gw, Nurse Sleep Disorders [address] [place] [address] [phone] Health Maintenance Due Date Last Done Comments [...] ID Type Phone Address [facility] [id number] [employer] [id number] [facility] [id number] as of this encounter
--- OUTSIDE RECORDS SUMMARY | 2023-05-10 23:42 | External Medical Summary | Summary of Care ---
Author Name Unknown Organization [place] [address] Phone Care Team Providers Care Cage Maker Machine Name Role Phone Nancy Matute MD Primary Care Provider [phone] Reason for Visit * Reason Comments ADVICE Encounter Details Date Type Department Care Team Description 08/29/2017 Telephone [place] [address] [place] [address] Nancy Matute MD [address] [place] [address] [phone] ADVICE Allergies Active Allergy Reactions Severity Noted [...] Inhaler 1 06/29/2016 Active Vitamin D, Ergocalciferol, 52196 UNITS CapsuleIndications:Vi tamin D deficiency 1capsule every [...] 5 01/06/2017 Active Blood Glucose Monitoring Suppl (Arisaph PharmaceuticalsTOUCH VERIO) W/DEVICE KITIndications:Type 2 diabetes mellitus with hemoglobin A1c goal of less than 7.0% (HCC) Use as directed. Use daily to check blood sugars DX:E11.9 1 Kit 0 01/17/2017 Active Glucose Blood (Arisaph PharmaceuticalsTOUCH ULTRA BLUE) STRPIndications:Type 2 diabetes mellitus with hemoglobin A1c goal of less than 7.0% (HCC) Use as directed 4 times a day as needed for Other (Use daily to check blood sugars DX:E11.9). Use up to four times a day as directed 100 Strip 11 01/17/2017 Active Arisaph PharmaceuticalsTOUCH ULTRASOFT LANCETS MISCIndications:Type 2 diabetes mellitus [...] 07/14/2017 Active furosemide (LASIX) 20 MG TabletIndications:Erickson mikal,Stasis dermatitis One pill by mouth once a [...] allergies 30 Tab 11 07/19/2017 Active nystatin 159433 UNIT/GM creamIndications:Cand idal vulvovaginitis Apply topically to affected area 2 times a day. To affacted area for two weeks. 15 g 2 08/24/2017 Active as of this encounter Active Problems Problem Noted Date History of Clostridium difficile colitis 08/29/2017 Debility 07/19/2017 Body mass index (BMI) of 50.0 to 59.9 in adult ([facility]) 06/12/2017 Overview: Per Obesity protocol #1 Chronic [...] ([facility]) 01/24/2012 Obstructive sleep apnea 01/18/2011 Overview: 08/18/11 [...] pain 01/24/2012 01/17/2017 Genetic Sleep Disorder Research Other*[id number] 05/13/2011 04/07/2016 Lumbosacral spondylosis 12/27/2010 05/25/20 12 [...] Telephone Encounter - Susan Rosales RN - 08/29/2017 10:16 AM EST Spoke to patient she will have a friend tile picker container for cdiff- container put at front dest for tile picker * Telephone Encounter - Nancy Matute MD - 08/29/2017 9:40 AM EST Please notify- Diarrhea could be a side effect of the antibiotic used to treat C diff until normal stool bacteria are reestablished. Diarrhea could also be a symptom persistent C diff. Put an order in to recheck stool for C diff. Please have tile picker container for collection. Some patients with C diff need to be treated for a significantly longer period of time. P Aubrey Matute, MD * Telephone Encounter - Susan Rosales RN - 08/29/2017 8:31 AM EST See message below do you want to see her or recheck for Cdiff? * Telephone Encounter - Gabi Meraz, HAND ASSEMBLER FOR PULLER OVER - 08/29/2017 8:20 AM EST Pt calling states that she has had diarrhea for 3 weeks. Pt states that she was treated for C diff but she is still having issues. Pt states that some times she is not even able to make it to the bathroom. Please advise thank you in this encounter Plan of Treatment Upcoming Encounters Date Type Specialty Care Team Description 09/19/2017 Office Visit Gastroenterology Lyssa Stout CRNP [address] [facility] [place] [address] 09/19/2017 Office Visit Family Practice Nancy Matute MD [address] [place], [place] [address] 09/26/2017 Office Visit Dermatology To Gee MD [address] [place] [address] [phone] 10/10/2017 Office Visit Gastroenterology Gadiel Pathak MD [address] [place], [place] [address] 10/17/2017 Office Visit Gynecology Obstetrics Alberta Gould, PA-C [address] [facility] [place] [address] [phone] 11/21/2017 Office Visit Family Practice Nancy Matute MD [address] [place] [address] 08/07/2018 Office Visit Sleep Disorders Lanette Fields CRNP [address] [place] [address] [phone] Kentrell, Nurse Sleep Disorders [facility] [place] [address] [phone] Scheduled Tests Name Priority Associated Diagnoses Order S chedule C DIFFICILE/EPI, PCR Routine Diarrhea, unspecified type History of Clostridium difficile colitis Expected: 08/29/2017 (Approximate), Expires: 08/29/2018 Health Maintenance Due Date Last Done Comments [...] fileas of this encounter Visit Diagnoses Diagnosis Diarrhea, unspecified type - Primary History of Clostridium diffi cile colitis in this encounter Insurance Payer Benefit Plan / Group Subscriber ID Type Phone Address [facility] [id number] [employer] [id number] [facility] [id number] as of this encounter
--- OUTSIDE RECORDS SUMMARY | 2023-05-10 23:42 | External Medical Summary | Summary of Care ---
Author Name Unknown Organization [place] [address] Phone Care Team Providers Care Garment Alteration Examiner Name Role Phone Nancy Matute MD Primary Care Provider [phone] Reason for Visit * Reason Comments TEST RESULTS FYI Encounter Details Date Type Department Care Team Description 08/31/2017 Telephone [place] [place] [address] Nancy Matute MD [address] [place] [address] [phone] TEST RESULTS; FYI Allergies Active Allergy Reactions [...] Inhaler 1 06/29/2016 Active Vitamin D, Ergocalciferol, 73485 UNITS CapsuleIndications:Vi tamin D deficiency 1capsule every [...] 5 01/06/2017 Active Blood Glucose Monitoring Suppl (TheVegibox.comTOUCH VERIO) W/DEVICE KITIndications:Type 2 diabetes mellitus with hemoglobin A1c goal of less than 7.0% (HCC) Use as directed. Use daily to check blood sugars DX:E11.9 1 Kit 0 01/17/2017 Active Glucose Blood (TheVegibox.comTOUCH ULTRA BLUE) STRPIndications:Type 2 diabetes mellitus with hemoglobin A1c goal of less than 7.0% (HCC) Use as directed 4 times a day as needed for Other (Use daily to check blood sugars DX:E11.9). Use up to four times a day as directed 100 Strip 11 01/17/2017 Active TheVegibox.comTOUCH ULTRASOFT LANCETS MISCIndications:Type 2 diabetes mellitus with [...] allergies 30 Tab 11 07/19/2017 Active nystatin 360992 UNIT/GM creamIndications:Cand idal vulvovaginitis Apply topically to [...] pain 01/24/2012 01/17/2017 Genetic Sleep Disorder Research Other*[id number] 05/13/2011 04/07/2016 Lumbosacral spondylosis 12/27/2010 05/25/20 12 [...] PM EST Spoke to patient home health [facility] she deals with does not [...] Can you advise * Telephone Encounter - ChasityJosselin, DEVAN - 09/05/2017 11:53 AM EST PT called patient regarding referral. Her insurance won't cover her home health services as well didier going to PT to have her legs wrapped. She is asking how to proceed. * Telephone Encounter - Dominique Franco, THAD - 09/05/2017 11:37 AM EST Patient called because she has not heard from [facility] yet. I found the number [phone], and gave it to her. She will call to check in with them to get scheduled. * Telephone Encounter - LatricelázaroTalita saleem Belen, THAD - 08/31/2017 10:13 AM EST Appointment request sent to [facility] They will contact pt to schedule * Telephone Encounter - Susan Rosales RN - 08/31/2017 9:57 AM EST Advised patient to try either kaopectate or Imodium Patient has a physical therapy referral for lymphedema- please schedule at [facility] and let her know * Telephone Encounter - Nancy Matute MD - 08/31/2017 9:32 AM EST Please notify- May take Kaopectate or Imodium to slow diarrheal stools. Is [place] recommendation for lower extremity edema is elevation [...] Stout CRNP [address] [facility] [place] [address] [phone] 09/19/2017 Office Visit Family Practice Nancy Matute MD [address] [place] [address] [phone] 09/26/2017 Office Visit Dermatology To Gee MD [address] [place] [address] [phone] 10/10/2017 Office Visit Gastroenterology Gadiel Pathak MD [address] [place], [place] [address] 10/17/2017 Office Visit Gynecology Obstetrics Alberta Gould PA-C [address] [place] [address] [phone] 11/21/2017 Office Visit Family Practice Nancy Matute MD [address] [place] [address] [phone] 08/07/2018 Office Visit Sleep Disorders Lanette Fields CRNP [address] [facility] [place] [address] [phone] Kentrell Nurse Sleep Disorders [address] [facility] [place] [address] [phone] Health Maintenance Due Date Last Done Comments [...] Group Subscriber ID Type Phone Address [facility] [id number] [employer] [id number] [facility] [id number] as of this encounter
--- OUTSIDE RECORDS SUMMARY | 2023-05-10 23:42 | External Medical Summary | Summary of Care ---
Author Name Unknown Organization [place] [address] Phone Care Team Providers Care Automatic Edger Name Role Phone Nancy Matute MD Primary Care Provider [phone] Reason for Visit * Reason Comments APPOINTMENT Encounter Details Date Type Department Care Team Description 08/17/2017 Telephone [id number] [place] [address] Nancy Matute MD [address] [place] [address] [phone] APPOINTMENT Allergies Active Allergy Reactions Severity Noted [...] Inhaler 1 06/29/2016 Active Vitamin D, Ergocalciferol, 74135 UNITS CapsuleIndications: Vitamin D deficiency 1capsule every other week 8 Cap 6 09/27/2016 Active cyclobenzaprine (FLEXERIL) 10 MG Tablet Take 1 Tab by mouth at bedtime. 30 Tab 0 12/05/2016 Active potassium chloride ER 10 MEQ TBCRIndications:Hyp okalemia Take 1 Tab by mouth 2 times a day. With food. 60 Tab 5 01/06/2017 Active atenolol (TENORMIN) 25 MG Tablet Take 1 Tab by mouth at bedtime. 30 Tab 5 01/06/2017 Active Blood Glucose Monitoring Suppl (ReconnexTOUCH VERIO) W/DEVICE KITIndications:Type 2 diabetes mellitus with hemoglobin A1c goal of less than 7.0% (HCC) Use as directed. Use daily to check blood sugars DX:E11.9 1 Kit 0 01/17/2017 Active Glucose Blood (ReconnexTOUCH ULTRA BLUE) STRPIndications:Typ e 2 diabetes mellitus with hemoglobin A1c goal of less than 7.0% (HCC) Use as directed 4 times a day as needed for Other (Use daily to check blood sugars DX:E11.9). Use up to four times a day as directed 100 Strip 11 01/17/2017 Active ReconnexTOUCH ULTRASOFT LANCETS MISCIndications:Typ e 2 diabetes mellitus [...] 06/20/2017 Active benzonatate (TESSALON PERLES) 100 MG CapsuleIndications: Bronchitis, complicated take 1 capsule by mouth three times a day if needed for cough 30 Cap 1 06/20/2017 Active albuterol-ipratropi um (DUONEB) 2.5-0.5 MG/3ML [...] allergies 30 Tab 11 07/19/2017 Active nystatin 006126 UNIT/GM creamIndications:Ca ndidal vulvovaginitis Apply topically to affected area 2 times a day. To affacted area for two weeks. 15 g 2 06/07/2016 08/24/20 17 Discontinued as of this encounter Active Problems Problem Noted Date History of Clostridium difficile colitis 08/29/2017 Debility 07/19/2017 Body mass index (BMI) of 50.0 to 59.9 in adult ([facility]) 06/12/2017 Overview: Per Obesity protocol #1 [...] ([facility]) 01/24/2012 Obstructive sleep apnea 01/18/2011 Overview: 12/8/11 [...] pain 01/24/2012 01/17/2017 Genetic Sleep Disorder Research Other*[id number] 05/13/2011 04/07/2016 Lumbosacral spondylosis 12/27/2010 05/25/20 12 Dyslipidemia, goal LDL below 130 06/01/2010 03/28/2012 Asthma with severity to be determined 03/04/2010 11/01/2011 Overview: Per Asthma Taxonomy ICD-10 update of inactive term Asthma in remission 03/04/2010 01/09/2013 Overview: Per Provider Protocol. Obesity, morbid (more than 1 00 lbs over ideal weight or BMI > 40) ([facility]) 12/08/2009 07/02/2014 Overview: Per Obesity Taxonomy [...] Notes * Telephone Encounter - Silvia Ramires THAD - 08/29/2017 10:29 AM EST Patient scheduled for 09-19-17 * Telephone Encounter - Rachel Dallas OSA - 08/18/2017 1:13 PM EST Left phone message with Francisca to call back and schedule an appointment * Telephone Encounter - Susan Rosales RN - 08/17/2017 1:44 PM EST You can use 2 acutes with anyone or schedule hospital f/u with any provider in [place] * Telephone Encounter - Susan Scott OSA - 08/17/2017 12:56 PM EST Trying to schedule the patient for a hospital discharge and the two days open are 08/22/17 and 08/29/17 and the patient already has appointments scheduled at [facility]. Please call Dayan at [facility] to schedule the patient. in this encounter Plan of Treatment Upcoming Encounters Date Type Specialty Care Team Description 09/19/2017 Office Visit Gastroenterology Lyssa Stout CRNP 132 [facility] [place] [address] [phone] 09/19/2017 Office Visit [facility] Nancy Matute MD [address] [place] [address] [phone] 09/26/2017 Office Visit Dermatology To Gee MD [address] [place] [address] [phone] 10/10/2017 Office Visit Gastroenterology Gadiel Pathak MD [address] [place], [place] [address] 10/17/2017 Office Visit Gynecology Obstetrics Alberta Gould PA-C 132 [facility] [place] [address] [phone] 11/21/2017 Office Visit [facility] Nancy Matute MD [address] [place] [address] [phone] 08/07/2018 Office Visit Sleep Disorders [facility]ette Fields [facility] [place] [address] [phone] [place] Nurse Sleep Disorders [address] [facility] [place] [address] [phone] Health Maintenance Due Date Last Done Comments [...] Type Phone Address [facility] [id number] [facility] [id number] [facility] [id number] as of this encounter
--- OUTSIDE RECORDS SUMMARY | 2023-05-10 23:42 | External Medical Summary | Summary of Care ---
Author Name Unknown Organization [place] [address] Phone Care Team Providers Care Drug Abuse Counselor Name Role Phone Nancy Matute MD Primary Care Provider [phone] Reason for Visit * Reason Comments TEST RESULTS FYI Encounter Details Date Type Department Care Team Description 08/31/2017 Telephone [place] [address] [place] [address] Nancy Matute MD [address] [place] [address] [phone] TEST RESULTS; FYI Allergies Active Allergy Reactions [...] Inhaler 1 06/29/2016 Active Vitamin D, Ergocalciferol, 65402 UNITS CapsuleIndications:Vi tamin D deficiency 1capsule every [...] 5 01/06/2017 Active Blood Glucose Monitoring Suppl (Rapid Action PackagingTOUCH VERIO) W/DEVICE KITIndications:Type 2 diabetes mellitus with hemoglobin A1c goal of less than 7.0% (HCC) Use as directed. Use daily to check blood sugars DX:E11.9 1 Kit 0 01/17/2017 Active Glucose Blood (Rapid Action PackagingTOUCH ULTRA BLUE) STRPIndications:Type 2 diabetes mellitus with hemoglobin A1c goal of less than 7.0% (HCC) Use as directed 4 times a day as needed for Other (Use daily to check blood sugars DX:E11.9). Use up to four times a day as directed 100 Strip 11 01/17/2017 Active Rapid Action PackagingTOUCH ULTRASOFT LANCETS MISCIndications:Type 2 diabetes mellitus with [...] allergies 30 Tab 11 07/19/2017 Active nystatin 874175 UNIT/GM creamIndications:Cand idal vulvovaginitis Apply topically to [...] pain 01/24/2012 01/17/2017 Genetic Sleep Disorder Research Other*[id number] 05/13/2011 04/07/2016 Lumbosacral spondylosis 12/27/2010 05/25/20 12 [...] Telephone Encounter - Jovana Lambert, UMA - 09/05/2017 3:41 PM EST Can you [...] called because she has not heard from [facility] yet. I found the number [phone], and gave it to her. She will call to check in with them to get scheduled. * Telephone Encounter - Ectorstiven TalitaTHAD Smith - 08/31/2017 10:13 AM EST Appointment request sent to [facility] They will contact pt to schedule * Telephone Encounter - Susan Rosales RN - 08/31/2017 9:57 AM EST Advised patient to try either kaopectate or Imodium Patient has a physical therapy referral for lymphedema- please schedule at [facility] and let her know * Telephone [...] [facility] [address] [facility] [address] [phone] 09/19/2017 Office Visit Family Practice Nancy Matute MD [address] [place] [address] 09/26/2017 Office Visit Dermatology To Gee MD 200 [facility] [place] [address] [phone] 10/10/2017 Office Visit Gastroenterology Gadiel Pathak MD [address] [facility] [place] [address] [phone] 10/17/2017 Office Visit Gynecology Obstetrics Alberta Gould, PA-C [address] [facility] [place] [address] [phone] 11/21/2017 Office Visit Family Practice Nancy Matute MD [address] [place], [place] [address] 08/07/2018 Office Visit Sleep Disorders Lanette Fields CRNP [facility] [place] [address] [phone] Nurse Kentrell Sleep Disorders [facility] [place] [address] [phone] Health Maintenance Due Date Last Done Comments [...] Phone Address [facility] [id number] [employer] [facility] [id number] [facility] [id number] as of this encounter
--- OUTSIDE RECORDS SUMMARY | 2023-05-10 23:42 | External Medical Summary ---
Author Name Unknown Address [facility] [place] [address] Phone Organization K01:[facility] [address] [address] Laboratory Report Ordering Provider Test Date Status ALEJANDRA Cruz 08/30/2017 13:45:00 Final Observation Date Value Abnormality Reference Status Source 08/30/2017 13:46 STOOL Fin al Performing Location [place] [id number]
--- OUTSIDE RECORDS SUMMARY | 2023-05-10 23:42 | External Medical Summary | Summary of Care ---
Author Name Unknown Organization [place] [address] Phone Care Team Providers Care Small Equipment Operator Name Role Phone Nancy Matute MD Primary Care Provider [phone] Reason for Visit * Reason Comments TEST RESULTS FYI Encounter Details Date Type Department Care Team Description 08/31/2017 Telephone [address] [place] [address] Nancy Matute MD [address] [place] [address] [phone] TEST RESULTS; FYI Allergies Active Allergy Reactions [...] Inhaler 1 06/29/2016 Active Vitamin D, Ergocalciferol, 90275 UNITS CapsuleIndications:Vi tamin D deficiency 1capsule every [...] 5 01/06/2017 Active Blood Glucose Monitoring Suppl (MfuseTOUCH VERIO) W/DEVICE KITIndications:Type 2 diabetes mellitus with hemoglobin A1c goal of less than 7.0% (HCC) Use as directed. Use daily to check blood sugars DX:E11.9 1 Kit 0 01/17/2017 Active Glucose Blood (MfuseTOUCH ULTRA BLUE) STRPIndications:Type 2 diabetes mellitus with hemoglobin A1c goal of less than 7.0% (HCC) Use as directed 4 times a day as needed for Other (Use daily to check blood sugars DX:E11.9). Use up to four times a day as directed 100 Strip 11 01/17/2017 Active MfuseTOUCH ULTRASOFT LANCETS MISCIndications:Type 2 diabetes mellitus with [...] allergies 30 Tab 11 07/19/2017 Active nystatin 727930 UNIT/GM creamIndications:Cand idal vulvovaginitis Apply topically to affected area 2 times a day. To affacted area for two weeks. 15 g 2 08/24/2017 Active as of this encounter Active Problems Problem Noted Date History of Clostridium difficile colitis 08/29/2017 Debility 07/19/2017 Body mass index (BMI) of 50.0 to 59.9 in adult ([facility]) 06/12/2017 Overview: Per Obesity protocol [...] pain 01/24/2012 01/17/2017 Genetic Sleep Disorder Research Other*[id number] 05/13/2011 04/07/2016 Lumbosacral spondylosis 12/27/2010 05/25/20 12 Dyslipidemia, goal LDL below 130 06/01/2010 03/28/2012 Asthma with severity to be determined 03/04/2010 11/01/2011 Overview: Per Asthma Taxonomy ICD-10 update of inactive term Asthma in remission 03/04/2010 01/09/2013 Overview: Per Provider Protocol. Obesity, morbid (more than 1 00 lbs over ideal weight or BMI > 40) ([facility]) 12/08/2009 07/02/2014 Overview: Per Obesity [...] PM EST Spoke to patient home health [facility] she deals with does not [...] called because she has not heard from [facility] yet. I found the number [phone], and gave it to her. She will call to check in with them to get scheduled. * Telephone Encounter - Talita Caballero, THAD - 08/31/2017 10:13 AM EST Appointment request sent to [facility] They will contact pt to schedule * Telephone Encounter - Susan Rosales RN - 08/31/2017 9:57 AM EST Advised patient to try either kaopectate or Imodium Patient has a physical therapy referral for lymphedema- please schedule at [facility] and let her know * Telephone Encounter - Nancy Matute MD - 08/31/2017 9:32 AM EST Please notify- May take Kaopectate or Imodium to slow diarrheal stools. Is [place] recommendation for lower extremity edema is elevation [...] Gastroenterology Lyssa Stout CRNP [address] [place] [address] [phone] 09/19/2017 Office Visit Family Practice Nancy Matute MD [address] [place] [address] [phone] 09/26/2017 Office Visit Dermatology To Gee MD [address] [place] [address] [phone] 10/10/2017 Office Visit Gastroenterology Gadiel Pathak MD [address] [place] [address] 10/17/2017 Office Visit Gynecology Obstetrics Alberta Gould, PA-C 132 [place] [address] [phone] 11/21/2017 [facility] Visit [facility] Nancy Matute MD [address] [place] [address] [phone] 08/07/2018 Office Visit Sleep Disorders Lanette Fields CRNP [address] [facility] [place] [address] [phone] Kentrell Nurse Sleep Disorders [address] [facility] [place] [address] [phone] Health Maintenance Due Date Last Done Comments [...] / Group Subscriber ID Type Phone Address [facility] [id number] [employer] [facility] [id number] [facility] [id number] as of this encounter
--- OUTSIDE RECORDS SUMMARY | 2023-05-10 23:42 | External Medical Summary | Summary of Care ---
Author Name Unknown Organization [place] [address] Phone Care Team Providers Care Sheep Farm Worker Name Role Phone Nancy Matute MD Primary Care Provider [phone] Reason for Visit * Reason Comments TEST RESULTS FYI Encounter Details Date Type Department Care Team Description 08/31/2017 Telephone [place] [address] [place] [address] Nancy Matute MD [address] [place] [address] [phone] TEST RESULTS; FYI Allergies Active Allergy Reactions [...] Inhaler 1 06/29/2016 Active Vitamin D, Ergocalciferol, 58933 UNITS CapsuleIndications:Vi tamin D deficiency 1capsule every [...] 5 01/06/2017 Active Blood Glucose Monitoring Suppl (Mira RehabTOUCH VERIO) W/DEVICE KITIndications:Type 2 diabetes mellitus with hemoglobin A1c goal of less than 7.0% (HCC) Use as directed. Use daily to check blood sugars DX:E11.9 1 Kit 0 01/17/2017 Active Glucose Blood (Mira RehabTOUCH ULTRA BLUE) STRPIndications:Type 2 diabetes mellitus with hemoglobin A1c goal of less than 7.0% (HCC) Use as directed 4 times a day as needed for Other (Use daily to check blood sugars DX:E11.9). Use up to four times a day as directed 100 Strip 11 01/17/2017 Active Mira RehabTOUCH ULTRASOFT LANCETS MISCIndications:Type 2 diabetes mellitus with [...] allergies 30 Tab 11 07/19/2017 Active nystatin 310222 UNIT/GM creamIndications:Cand idal vulvovaginitis Apply topically to [...] pain 01/24/2012 01/17/2017 Genetic Sleep Disorder Research Other*[id number] 05/13/2011 04/07/2016 Lumbosacral spondylosis 12/27/2010 05/25/20 12 [...] called because she has not heard from [facility] yet. I found the number [phone], and gave it to her. She will call to check in with them to get scheduled. * Telephone Encounter - Talita Caballero, THAD - 08/31/2017 10:13 AM EST Appointment request sent to [facility] They will contact pt to schedule * Telephone Encounter - Susan Rosales RN - 08/31/2017 9:57 AM EST Advised patient to try either kaopectate or Imodium Patient has a physical therapy referral for lymphedema- please schedule at [facility] and let her know * Telephone Encounter - Nancy Matute MD - 08/31/2017 9:32 AM EST Please notify- May take Kaopectate or Imodium to slow diarrheal stools. Is [place] recommendation for lower extremity edema is elevation [...] Office Visit Gastroenterology Lyssa Stout CRNP [address] [place] [address] [phone] 09/19/2017 Office Visit Family Practice Nancy Matute MD [address] [place] [address] [phone] 09/26/2017 Office Visit Dermatology To Gee MD [address] [place] [address] [phone] 10/10/2017 Office Visit Gastroenterology Gadiel Pathak MD [address] [place] [address] 10/17/2017 Office Visit Gynecology Obstetrics Alberta Gould PA-C [address] [place] [address] [phone] 11/21/2017 Office Visit Family Practice Nancy Matute MD [address] [facility] [address] [phone] 08/07/2018 Office Visit Sleep Disorders Lanette Fields CRNP [address] [place] [address] [phone] Kentrell, Nurse Sleep Disorders [address] [place] [address] [phone] Health Maintenance Due Date Last Done Comments [...] / Group Subscriber ID Type Phone Address [facility] [id number] [facility] [facility] [id number] [facility] [id number] as of this encounter
--- OUTSIDE RECORDS SUMMARY | 2023-05-10 23:42 | External Medical Summary | Summary of Care ---
Author Name Unknown Organization [place] [address] Phone Care Team Providers Care Carpet Layer Helper Name Role Phone Nancy Matute MD Primary Care Provider Reason for Visit * Reason Comments TEST RESULTS Encounter Details Date Type Department Care Team Description 08/31/2017 Telephone [place] [address] [place] [address] Nancy Matute MD [address] [place] [address] [phone] TEST RESULTS Allergies Active Allergy Reactions Severity [...] Inhaler 1 06/29/2016 Active Vitamin D, Ergocalciferol, 74965 UNITS CapsuleIndications:Vi tamin D deficiency 1capsule every [...] 5 01/06/2017 Active Blood Glucose Monitoring Suppl (CycellTOUCH VERIO) W/DEVICE KITIndications:Type 2 diabetes mellitus with hemoglobin A1c goal of less than 7.0% (HCC) Use as directed. Use daily to check blood sugars DX:E11.9 1 Kit 0 01/17/2017 Active Glucose Blood (CycellTOUCH ULTRA BLUE) STRPIndications:Type 2 diabetes mellitus with hemoglobin A1c goal of less than 7.0% (HCC) Use as directed 4 times a day as needed for Other (Use daily to check blood sugars DX:E11.9). Use up to four times a day as directed 100 Strip 11 01/17/2017 Active CycellTOUCH ULTRASOFT LANCETS MISCIndications:Type 2 diabetes mellitus with [...] 0 07/14/2017 Active furosemide (LASIX) 20 MG TabletIndications:Ericksonstievn ren,Stasis dermatitis One pill by mouth once [...] allergies 30 Tab 11 07/19/2017 Active nystatin 589685 UNIT/GM creamIndications:Cand idal vulvovaginitis Apply topically to [...] pain 01/24/2012 01/17/2017 Genetic Sleep Disorder Research Other*[id number] 05/13/2011 04/07/2016 Lumbosacral spondylosis 12/27/2010 05/25/20 12 [...] 10:13 AM EST Appointment request sent to [facility] They will contact pt to schedule * Telephone Encounter - Susan Rosales RN - 08/31/2017 9:57 AM EST Advised patient to try either kaopectate or Imodium Patient has a physical therapy referral for lymphedema- please schedule at [facility] and let her know * Telephone Encounter - Nancy Matute MD - 08/31/2017 9:32 AM EST Please notify- May take Kaopectate or Imodium to slow diarrheal stools. Is [place] recommendation for lower extremity edema is elevation [...] Stout CRNP [address] [facility] [place] [address] [phone] 09/19/2017 Office Visit Family [facility] Nancy Matute MD [address] [place] [address] [phone] 09/26/2017 Office Visit Dermatology To Gee MD [address] [place] [address] [phone] 10/10/2017 Office Visit Gastroenterology Gadiel Pathak MD [address] [place], [place] [address] 10/17/2017 Office Visit Gynecology Obstetrics Alberta Gould PA-C [address] [place] [address] [phone] 11/21/2017 Office Visit [facility] Nancy Matute MD [address] [place] [address] [phone] 08/07/2018 Office Visit Sleep Disorders Lanette Fields CRNP [address] [facility] [place] [address] [phone] Nurse Kentrell Sleep Disorders [address] [place] [address] [phone] Health Maintenance Due Date Last Done Comments [...] Group Subscriber ID Type Phone Address [facility]UE [facility] [id number] [employer] [facility] [id number] [facility] [id number] as of this encounter
--- OUTSIDE RECORDS SUMMARY | 2023-05-10 23:42 | External Medical Summary | Summary of Care ---
Author Name Unknown Organization [place] [address] Phone Care Team Providers Care Client Reporting Associate Name Role Phone Nancy Matute MD Primary Care Provider [phone] Encounter Details Date Type Department Care Team Description 08/28/2017 Scan Encounter Unspecified Department <No scans attached> [...] Inhaler 1 06/29/2016 Active Vitamin D, Ergocalciferol, 67726 UNITS CapsuleIndications:Vi tamin D deficiency 1capsule every [...] 1 Kit 0 01/17/2017 Active Glucose Blood (VideoGenieTOUCH ULTRA BLUE) STRPIndications:Type 2 diabetes mellitus with [...] allergies 30 Tab 11 07/19/2017 Active nystatin 404647 UNIT/GM creamIndications:Cand idal vulvovaginitis Apply topically to [...] Atypical chest pain 08/19/2016 01/17/2017 Hepatic cirrhosis ([facility]) 08/19/2016 03/28/20 17 Polyuria 08/09/2016 [...] pain 01/24/2012 01/17/2017 Genetic Sleep Disorder Research Other*[id number] 05/13/2011 04/07/2016 Lumbosacral spondylosis 12/27/2010 05/25/20 12 [...] Office Visit Gastroenterology Lyssa Stout CRNP [address] [place] [address] [phone] 09/19/2017 Office Visit Family Practice Nancy Matute MD [address] [place], [place] [address] 09/26/2017 Office Visit Dermatology To Gee MD [address] [place] [address] [phone] 10/10/2017 Office Visit Gastroenterology Gadiel Pathak MD [address] [place] [address] 10/17/2017 Office Visit Gynecology Obstetrics Alberta Gould PA-C [address] [facility] [place] [address] [phone] 11/21/2017 Office Visit Family Practice Nancy Matute MD [address] [facility] [address] [phone] 08/07/2018 Office Visit Sleep Disorders Lanette Fields CRNP [address] [place] [address] [phone] Gw, Nurse Sleep Disorders [address] [place] [address] [phone] Health Maintenance Due Date Last Done Comments [...] ID Type Phone Address [facility] [id number] [employer] [facility] [facility] [id number] [facility] [id number] as of this encounter
--- OUTSIDE RECORDS SUMMARY | 2023-05-10 23:42 | External Medical Summary | Summary of Care ---
Author Name Unknown Organization [place] [address] Phone Care Team Providers Care County Engineer Name Role Phone Nancy Matute MD Primary Care Provider [phone] Reason for Visit * Reason Comments TEST RESULTS FYI Encounter Details Date Type Department Care Team Description 08/31/2017 Telephone [address] [place] [address] Nancy Matute MD [address] [place] [address] [phone] TEST RESULTS; FYI Allergies Active Allergy Reactions [...] Inhaler 1 06/29/2016 Active Vitamin D, Ergocalciferol, 00169 UNITS CapsuleIndications:Vi tamin D deficiency 1capsule every [...] 5 01/06/2017 Active Blood Glucose Monitoring Suppl (Shareholder InSiteTOUCH VERIO) W/DEVICE KITIndications:Type 2 diabetes mellitus with hemoglobin A1c goal of less than 7.0% (HCC) Use as directed. Use daily to check blood sugars DX:E11.9 1 Kit 0 01/17/2017 Active Glucose Blood (Shareholder InSiteTOUCH ULTRA BLUE) STRPIndications:Type 2 diabetes mellitus with hemoglobin A1c goal of less than 7.0% (HCC) Use as directed 4 times a day as needed for Other (Use daily to check blood sugars DX:E11.9). Use up to four times a day as directed 100 Strip 11 01/17/2017 Active Shareholder InSiteTOUCH ULTRASOFT LANCETS MISCIndications:Type 2 diabetes mellitus with [...] allergies 30 Tab 11 07/19/2017 Active nystatin 255717 UNIT/GM creamIndications:Cand idal vulvovaginitis Apply topically to affected area 2 times a day. To affacted area for two weeks. 15 g 2 08/24/2017 Active as of this encounter Active Problems Problem Noted Date History of Clostridium difficile colitis 08/29/2017 Debility 07/19/2017 Body mass index (BMI) of 50.0 to 59.9 in adult ([facility]) 06/12/2017 Overview: Per Obesity protocol [...] pain 01/24/2012 01/17/2017 Genetic Sleep Disorder Research Other*[id number] 05/13/2011 04/07/2016 Lumbosacral spondylosis 12/27/2010 05/25/20 12 [...] called because she has not heard from [facility] yet. I found the number [phone], and gave it to her. She will call to check in with them to get scheduled. * Telephone Encounter - Talita Caballero OSA - 08/31/2017 10:13 AM EST Appointment request sent to [facility] They will contact pt to schedule * Telephone Encounter - Susan Rosales RN - 08/31/2017 9:57 AM EST Advised patient to try either kaopectate or Imodium Patient has a physical therapy referral for lymphedema- please schedule at [facility] and let her know * Telephone [...] Visit Gastroenterology Lyssa Stout CRNP [address] [place] [address] [phone] 09/19/2017 Office Visit Family Practice Nancy Matute MD [address] [place], [place] [address] 09/26/2017 Office Visit Dermatology To Gee MD [address] [place], [place] [address] 10/10/2017 Office Visit Gastroenterology Gadiel Pathak MD [address] [place] [address] 10/17/2017 Office Visit Gynecology Obstetrics Alberta Gould, PA-C [address] [facility] [place] [address] [phone] 11/21/2017 Office Visit Family Practice Nancy Matute MD [address] [place] [address] [phone] 08/07/2018 Office Visit Sleep Disorders Lanette Fields CRNP [address] [place] [address] [phone] Kentrell, Nurse Sleep Disorders [address] [place] [address] [phone] Health Maintenance Due Date Last Done Comments [...] Subscriber ID Type Phone Address [facility] [id number] [employer] [facility] [id number] [facility] [id number] as of this encounter
--- OUTSIDE RECORDS SUMMARY | 2023-05-10 23:42 | External Medical Summary | Summary of Care ---
Author Name Unknown Organization [place] [address] Phone Care Team Providers Care Electric Crane Operator Name Role Phone Nancy Matute MD Primary Care Provider Reason for Visit * Reason Comments TEST RESULTS FYI Encounter Details Date Type Department Care Team Description 08/31/2017 Telephone [address] [place] [address] Nancy Matute MD [address] [place] [address] [phone] TEST RESULTS; FYI Allergies Active Allergy Reactions [...] Inhaler 1 06/29/2016 Active Vitamin D, Ergocalciferol, 18921 UNITS CapsuleIndications:Vi tamin D deficiency 1capsule every [...] 5 01/06/2017 Active Blood Glucose Monitoring Suppl (CloupiaTOUCH VERIO) W/DEVICE KITIndications:Type 2 diabetes mellitus with hemoglobin A1c goal of less than 7.0% (HCC) Use as directed. Use daily to check blood sugars DX:E11.9 1 Kit 0 01/17/2017 Active Glucose Blood (CloupiaTOUCH ULTRA BLUE) STRPIndications:Type 2 diabetes mellitus with hemoglobin A1c goal of less than 7.0% (HCC) Use as directed 4 times a day as needed for Other (Use daily to check blood sugars DX:E11.9). Use up to four times a day as directed 100 Strip 11 01/17/2017 Active CloupiaTOUCH ULTRASOFT LANCETS MISCIndications:Type 2 diabetes mellitus with [...] allergies 30 Tab 11 07/19/2017 Active nystatin 215646 UNIT/GM creamIndications:Cand idal vulvovaginitis Apply topically to affected area 2 times a day. To affacted area for two weeks. 15 g 2 08/24/2017 Active as of this encounter Active Problems Problem Noted Date History of Clostridium difficile colitis 08/29/2017 Debility 07/19/2017 Body mass index (BMI) of 50.0 to 59.9 in adult ([facility]) 06/12/2017 Overview: Per Obesity [...] pain 01/24/2012 01/17/2017 Genetic Sleep Disorder Research Other*[id number] 05/13/2011 04/07/2016 Lumbosacral spondylosis 12/27/2010 05/25/20 12 [...] called because she has not heard from [facility] yet. I found the number [phone], and gave it to her. She will call to check in with them to get scheduled. * Telephone Encounter - Talita Caballero, THAD - 08/31/2017 10:13 AM EST Appointment request sent to [facility] They will contact pt to schedule * Telephone Encounter - Susan Rosales RN - 08/31/2017 9:57 AM EST Advised patient to try either kaopectate or Imodium Patient has a physical therapy referral for lymphedema- please schedule at [facility] and let her know * Telephone Encounter - Nancy Matute MD - 08/31/2017 9:32 AM EST Please notify- May take Kaopectate or Imodium to slow diarrheal stools. Is [place] recommendation for lower extremity edema is elevation [...] CRNP 132 [facility] [place] [address] 09/19/2017 Office Visit Family Practice Nancy Matute MD [address] [place] [address] [facility] [id number] 09/26/2017 Office Visit [facility] To [facility]ee MD [address] [facility] [address] [phone] 10/10/2017 Office Visit Gastroenterology Gadiel Pathak MD [address] [place] [facility] [address] 10/17/2017 Office Visit Gynecology Obstetrics Alberta Gould PA-C [address] [place] [address] [phone] 11/21/2017 Office Visit Family Practice Nancy Matute MD [address] [place], [place] [address] 08/07/2018 Office Visit Sleep Disorders Lanette Fields CRNP 132 [place] [address] [phone] Nurse Kentrell Sleep Disorders 132 [facility] [place] [address] [phone] Health Maintenance Due Date Last Done Comments [...] Subscriber ID Type Phone Address [facility] [id number] [employer] [id number] [facility] [id number] as of this encounter
--- OUTSIDE RECORDS SUMMARY | 2023-05-10 23:43 | External Medical Summary | Summary of Care ---
Author Name Unknown Organization [place] [address] Phone Care Team Providers Care Coil Shaper Name Role Phone Nancy Matute MD Primary Care Provider [phone] Reason for Visit * Reason Comments FORMS REQUEST [facility] Encounter Details Date Type Department Care Team Description 08/23/2017 Telephone [address] [place] [address] Nancy Matute MD [address] [place] [address] [phone] FORMS REQUEST ([facility]) Allergies Active Allergy Reactions Severity Noted [...] affected area. 1 Bottle 1 05/11/2016 Active nystatin 723674 UNIT/GM creamIndications:Cand idal vulvovaginitis Apply topically to affected area 2 times a day. To affacted area for two weeks. 15 g 2 06/07/2016 Active Glucosamine-Chondroit in (GLUCOSAMINE CHONDR COMPLEX) 500-400 MG CapsuleIndications:Pr imary osteoarthritis of knees, bilateral Take 1 Cap by mouth 3 times a day. 1 Cap 0 06/07/2016 Active albuterol (PROVENTIL HFA) 108 (90 BASE) MCG/ACT inhalerIndications:Br onchitis, complicated Inhale 2 Puffs by mouth 4 times a day. 1 Inhaler 1 06/29/2016 Active Vitamin D, Ergocalciferol, 01104 UNITS CapsuleIndications:Vi tamin D deficiency 1capsule every [...] 5 01/06/2017 Active Blood Glucose Monitoring Suppl (Outsmart VERIO) W/DEVICE KITIndications:Type 2 diabetes mellitus with hemoglobin A1c goal of less than 7.0% (HCC) Use as directed. Use daily to check blood sugars DX:E11.9 1 Kit 0 01/17/2017 Active Glucose Blood (TastebudsTOUCH ULTRA BLUE) STRPIndications:Type 2 diabetes mellitus with [...] for allergies 30 Tab 11 07/19/2017 Active as of this encounter Active Problems Problem Noted Date Debility 07/19/2017 Body mass index (BMI) of [...] 03/27/2012 Chronic rhinitis 03/27/2012 Cerebral palsy ([facility]) 01/24/2012 Obstructive sleep apnea 01/18/2011 [...] pain 01/24/2012 01/17/2017 Genetic Sleep Disorder Research Other*[id number] 05/13/2011 04/07/2016 Lumbosacral spondylosis 12/27/2010 05/25/20 12 [...] Telephone Encounter - Nancy Matute MD - 08/23/2017 3:50 PM EST Signed. Nancy Matute MD * Telephone Encounter - Kiesha Schmitt LPN - 08/23/2017 1:44 PM EST Form on Dr Matute's desk to review,sign and date. * Telephone Encounter - Dulce Call OSA - 08/23/2017 12:58 PM EST Physicians Orders, in Giovani lauren in this encounter Plan of Treatment Upcoming Encounters Date Type Specialty Care Team Description 09/19/2017 Office Visit Gastroenterology Lyssa Stout CRNP [address] [place] [address] [phone] 09/19/2017 Office Visit Family Practice Nancy Matute MD [address] [place] [address] [phone] 09/26/2017 Office Visit Dermatology To Gee MD [address] [place] [address] [phone] 10/10/2017 Office Visit Gastroenterology Gadiel Pathak MD [address] [place], [place] [address] 10/17/2017 Office Visit Gynecology Obstetrics Alberta Gould, PA-C [address] [place] [place] [address] [phone] 11/21/2017 Office Visit Family Practice Nancy Matute MD [address] [place] [address] [phone] 08/07/2018 Office Visit Sleep Disorders Lanette Fields CRNP [address] [place] [address] [phone] Kentrell Nurse Sleep Disorders [address] [place] [address] [phone] Health Maintenance Due Date Last Done Comments [...] ID Type Phone Address [facility] [id number] [employer] [id number] [facility] [id number] as of this encounter
--- OUTSIDE RECORDS SUMMARY | 2023-05-10 23:43 | External Medical Summary | Summary of Care ---
Author Name Unknown Organization [place] [address] Phone Care Team Providers Care Canvas Goods Maker Name Role Phone Nancy Matute MD Primary Care Provider [phone] Encounter Details Date Type Department Care Team Description 08/15/2017 Scan Encounter Unspecified Department <No scans attached> [...] area. 1 Bottle 1 05/11/2016 Active nystatin 661686 UNIT/GM creamIndications:Cand idal vulvovaginitis Apply topically to [...] Inhaler 1 06/29/2016 Active Vitamin D, Ergocalciferol, 64014 UNITS CapsuleIndications:Vi tamin D deficiency 1capsule every [...] 5 01/06/2017 Active Blood Glucose Monitoring Suppl (KymetaTOUCH VERIO) W/DEVICE KITIndications:Type 2 diabetes mellitus with hemoglobin A1c goal of less than 7.0% (HCC) Use as directed. Use daily to check blood sugars DX:E11.9 1 Kit 0 01/17/2017 Active Glucose Blood (KymetaTOUCH ULTRA BLUE) STRPIndications:Type 2 diabetes mellitus with [...] than 7.0% ([facility]) Take 1 Tab by [...] pain 01/24/2012 01/17/2017 Genetic Sleep Disorder Research Other*[id number] 05/13/2011 04/07/2016 Lumbosacral spondylosis 12/27/2010 09/14/20 12 Dyslipidemia, goal [...] Encounters Date Type Specialty Care Team Description 08/22/2017 Office Visit Gastroenterology [facility]out CR[facility] [address] [facility] [address] [phone] 08/25/2017 Office Visit Urology Kavya Ramirez MD [address] [place] [address] 08/29/2017 Office Visit Gastroenterology Gadiel Pathak MD [address] [place] [address] 09/26/2017 Office Visit Dermatology To Gee MD [address] [place] [address] [phone] 10/17/2017 Office Visit Gynecology Obstetrics Alberta Gould PA-C [address] [place] [address] [phone] 11/21/2017 Office Visit Family Practice [facility]ute MD [address] [facility] [address] [phone] 08/07/2018 Office Visit Sleep Disorders Lanette Fields CRNP [address] [place] [address] [phone] Kentrell, Nurse Sleep Disorders [address] [place] [address] [phone] Health Maintenance Due Date Last Done Comments [...] Group Subscriber ID Type Phone Address [facility] [id number] [employer] [id number] [facility] [id number] as of this encounter
--- OUTSIDE RECORDS SUMMARY | 2023-05-10 23:43 | External Medical Summary | Summary of Care ---
Author Name Unknown Organization [place] [address] Phone Care Team Providers Care Maternal Child Nurse Name Role Phone Nancy Matute MD Primary Care Provider [phone] Reason for Visit * Reason Comments Scheduling Encounter Details Date Type Department Care Team Description 08/21/2017 Telephone Urology, [place] [address] [place] [address] Kavya Ramirez MD [address] [place] [address] Scheduling Allergies Active Allergy Reactions Severity Noted [...] area. 1 Bottle 1 05/11/2016 Active nystatin 598179 UNIT/GM creamIndications:Cand idal vulvovaginitis Apply topically to [...] Inhaler 1 06/29/2016 Active Vitamin D, Ergocalciferol, 88262 UNITS CapsuleIndications:Vi tamin D deficiency 1capsule every [...] 5 01/06/2017 Active Blood Glucose Monitoring Suppl (Watch-SitesTOUCH VERIO) W/DEVICE KITIndications:Type 2 diabetes mellitus with hemoglobin A1c goal of less than 7.0% (HCC) Use as directed. Use daily to check blood sugars DX:E11.9 1 Kit 0 01/17/2017 Active Glucose Blood (Watch-SitesTOUCH ULTRA BLUE) STRPIndications:Type 2 diabetes mellitus with [...] pain 01/24/2012 01/17/2017 Genetic Sleep Disorder Research Other*[id number] 05/13/2011 04/07/2016 Lumbosacral spondylosis 12/27/2010 05/25/20 12 [...] Miscellaneous Notes * Telephone Encounter - Saloni Katz RN - 08/21/2017 3:03 PM EST Called [facility] to inquire about appointment scheduled with Dr Ramirez 08/25/17. Ms Bustos is being followed by [facility] urologist. Scan encounter in chart from 08/09/17. Patient is scheduled to return there in November. They will contact patient. in this encounter Plan of Treatment Upcoming Encounters Date Type Specialty Care Team Description 08/25/2017 Office Visit UrologKavya Díaz MD [address] [place] [address] [phone] 09/19/2017 Office Visit Gastroenterology Lyssa Stout CRNP [address] [place] [address] [phone] 09/19/2017 Office Visit Family Practice Nancy Matute MD [address] [place] [address] [phone] 09/26/2017 Office Visit Dermatology To Gee MD [address] [place] [address] [phone] 10/10/2017 Office Visit Gastroenterology Gadiel Pathak MD [address] [place] [address] 10/17/2017 Office Visit Gynecology Obstetrics Alberta Gould PA-C [address] [place] [address] [phone] 11/21/2017 Office Visit Family Practice Nancy Matute MD [address] [place] [address] [phone] 08/07/2018 Office Visit Sleep Disorders Lanette Fields CRNP [address] [place] [address] [phone] Nurse Kentrell Sleep Disorders [address] [place] [address] [phone] Health Maintenance Due Date Last Done Comments [...] / Group Subscriber ID Type Phone Address [facility] [id number] [employer] [id number] [facility] [id number] as of this encounter
--- OUTSIDE RECORDS SUMMARY | 2023-05-10 23:43 | External Medical Summary | Summary of Care ---
Author Name Unknown Organization [place] [address] Phone Care Team Providers Care Explosive Operator Grenade Name Role Phone Nancy Matute MD Primary Care Provider [phone] Reason for Visit * Reason Comments ADVICE Encounter Details Date Type Department Care Team Description 08/21/2017 Telephone Urology, [place] [address] [place] [address] Kavya Ramirez MD [address] [place] [address] ADVICE Allergies Active Allergy Reactions Severity Noted [...] area. 1 Bottle 1 05/11/2016 Active nystatin 763970 UNIT/GM creamIndications:Cand idal vulvovaginitis Apply topically to [...] Inhaler 1 06/29/2016 Active Vitamin D, Ergocalciferol, 33063 UNITS CapsuleIndications:Vi tamin D deficiency 1capsule every [...] 5 01/06/2017 Active Blood Glucose Monitoring Suppl (Vacation Listing ServiceTOUCH VERIO) W/DEVICE KITIndications:Type 2 diabetes mellitus with hemoglobin A1c goal of less than 7.0% (HCC) Use as directed. Use daily to check blood sugars DX:E11.9 1 Kit 0 01/17/2017 Active Glucose Blood (Vacation Listing ServiceTOUCH ULTRA BLUE) STRPIndications:Type 2 diabetes mellitus with [...] pain 01/24/2012 01/17/2017 Genetic Sleep Disorder Research Other*[id number] 05/13/2011 04/07/2016 Lumbosacral spondylosis 12/27/2010 05/25/20 12 [...] Telephone Encounter - Nancy Matute MD - 08/21/2017 4:35 PM EST Not sure why she was scheduled at [place] again. We did a repeat your referral to urology last July. She was scheduled with HANDHOLE MACHINE OPERATOR urology and urology at [place] and canceled those appointments. Was referred to see [facility] urologist after hospitalization in July. Has seen them several times since then. Nancy Matute MD * Telephone Encounter - Saloni Katz RN - 08/21/2017 4:29 PM EST Attempt to call patient. Left message. Will cancel appointment with Dr Ramirez Monday08/25/17 per message from [facility]. * Telephone Encounter - Jaleesa Buck LPN - 08/21/2017 3:32 PM EST Pt is scheduled with at [facility] in urology 11/2017 Questions why she is being referred to [place]/does not want to be scheduled there Wants to cancel the appt with 08/25/17 * Telephone Encounter - Maggie Law, THAD - 08/21/2017 3:16 PM EST Patient calling and would like to know who referred her and for what. Patient given that information. She states now she has a catheter. What will be done at the appointment. # [phone]. Maggie Banksmarilousanket THAD 3:19 PM 08/21/2017 in this encounter Plan of Treatment Upcoming Encounters Date Type Specialty Care Team Description 09/19/2017 Office Visit Gastroenterology Lyssa Stout CRNP [address] [place] [address] [phone] 09/19/2017 Office Visit Family Practice Nancy Matute MD [address] [place] [address] [phone] 09/26/2017 Office Visit Dermatology To Gee MD [address] [place] [address] [phone] 10/10/2017 Office Visit Gastroenterology Gadiel Pathak MD [address] [place], [place] [address] 10/17/2017 Office Visit Gynecology Obstetrics Alberta Gould PA-C [address] [place] [address] [phone] 11/21/2017 Office Visit Family Practice Nancy Matute MD [address] [place], [place] [address] 08/07/2018 Office Visit Sleep Disorders Lanette Fields CRNP [address] [place] [address] [phone] Gw, Nurse Sleep Disorders [address] [place] [address] [phone] Health Maintenance Due Date Last Done Comments [...] ID Type Phone Address [facility] [id number] [employer] [id number] [facility] [id number] as of this encounter
--- OUTSIDE RECORDS SUMMARY | 2023-05-10 23:43 | External Medical Summary | Summary of Care ---
Author Name Unknown Organization [place] [address] Phone Care Team Providers Care Pot Builder Name Role Phone Nancy Matute MD Primary Care Provider [phone] Encounter Details Date Type Department Care Team Description 08/20/2017 Scan Encounter Unspecified Department <No scans attached> [...] area. 1 Bottle 1 05/11/2016 Active nystatin 741615 UNIT/GM creamIndications:Cand idal vulvovaginitis Apply topically to [...] Inhaler 1 06/29/2016 Active Vitamin D, Ergocalciferol, 04712 UNITS CapsuleIndications:Vi tamin D deficiency 1capsule every [...] 5 01/06/2017 Active Blood Glucose Monitoring Suppl (Flow StudioTOUCH VERIO) W/DEVICE KITIndications:Type 2 diabetes mellitus with hemoglobin A1c goal of less than 7.0% (HCC) Use as directed. Use daily to check blood sugars DX:E11.9 1 Kit 0 01/17/2017 Active Glucose Blood (Flow StudioTOUCH ULTRA BLUE) STRPIndications:Type 2 diabetes mellitus with [...] to 59.9 in adult ([facility]) 06/12/2017 Overview: Per Obesity protocol #1 Chronic [...] pain 01/24/2012 01/17/2017 Genetic Sleep Disorder Research Other*[id number] 05/13/2011 04/07/2016 Lumbosacral spondylosis 12/27/2010 09/14/20 12 [...] Visit Gastroenterology Lyssa Stout CRNP [address] [facility] [address] [phone] 09/19/2017 Office Visit Family Practice Nancy Matute MD [address] [place] [address] [phone] 09/26/2017 Office Visit Dermatology To Gee MD [address] [place] [address] [phone] 10/10/2017 Office Visit Gastroenterology Gadiel Pathak MD [address] [place] [address] [phone] 10/17/2017 Office Visit Gynecology Obstetrics Alberta Gould, PA-C [address] [facility] [place] [address] [phone] 11/21/2017 Office Visit Family Practice Nancy Matute MD [address] [facility] [address] [phone] 08/07/2018 Office Visit Sleep Disorders Lanette Fields CRNP [address] [place] [address] [phone] Kentrell, Nurse Sleep Disorders [address] [place] [address] [phone] Health Maintenance Due Date Last Done Comments [...] Group Subscriber ID Type Phone Address [facility] [id number] [employer] [id number] [facility] [id number] as of this encounter
--- OUTSIDE RECORDS SUMMARY | 2023-05-10 23:43 | External Medical Summary | Summary of Care ---
Author Name Unknown Organization [place] [address] Phone Care Team Providers Care Vehicle Refinisher Name Role Phone Nancy Matute MD Primary Care Provider [phone] Reason for Visit * Reason Comments ADVICE Encounter Details Date Type Department Care Team Description 08/21/2017 Telephone Urology, [facility] [address] [place] [address] Kavya Ramirez MD [address] [place] [address] ADVICE Allergies Active Allergy Reactions [...] area. 1 Bottle 1 05/11/2016 Active nystatin 024143 UNIT/GM creamIndications:Cand idal vulvovaginitis Apply topically to [...] Inhaler 1 06/29/2016 Active Vitamin D, Ergocalciferol, 41631 UNITS CapsuleIndications:Vi tamin D deficiency 1capsule every [...] 5 01/06/2017 Active Blood Glucose Monitoring Suppl (Lombardi ResidentialTOUCH VERIO) W/DEVICE KITIndications:Type 2 diabetes mellitus with hemoglobin A1c goal of less than 7.0% (HCC) Use as directed. Use daily to check blood sugars DX:E11.9 1 Kit 0 01/17/2017 Active Glucose Blood (Lombardi ResidentialTOUCH ULTRA BLUE) STRPIndications:Type 2 diabetes mellitus with [...] pain 01/24/2012 01/17/2017 Genetic Sleep Disorder Research Other*[id number] 05/13/2011 04/07/2016 Lumbosacral spondylosis 12/27/2010 05/25/20 12 [...] encounter Miscellaneous Notes * Telephone Encounter - Jaleesa Buck LPN - 08/22/2017 3:04 PM EST The pt called the office and I have reviewed message with her I did advise her the [facility] appt has been cancelled 08/25/17 Will keep her scheduled appt with [facility] urology dept * Telephone Encounter - Nancy Matute MD - 08/21/2017 4:35 PM EST Not sure why she was scheduled at [facility] again. We did a repeat your referral to urology last July. She was scheduled with [facility] urology and urology at [facility] and canceled those appointments. Was referred to see [facility] urologist after hospitalization in July. Has seen them several times since then. Nancy Matute MD * Telephone Encounter - Saloni Katz RN - 08/21/2017 4:29 PM EST Attempt to call patient. Left message. Will cancel appointment with Dr Ramirez Monday08/25/17 per message from [facility]. * Telephone Encounter - Jaleesa Buck LPN - 08/21/2017 3:32 PM EST Pt is scheduled with at [facility] in urology 11/2017 Questions why she is being referred to [facility]/does not want to be scheduled there Wants to cancel the appt with 08/25/17 * Telephone Encounter - Maggie Law, THAD - 08/21/2017 3:16 PM EST Patient calling and would like to know who referred her and for what. Patient given that information. She states now she has a catheter. What will be done at the appointment. # [phone]. Maggie Law, THAD 3:19 PM 08/21/2017 in this encounter Plan of Treatment Upcoming Encounters Date Type Specialty Care Team Description 09/19/2017 Office Visit Gastroenterology Lyssa Stout CRNP [address] [place] [address] [phone] 09/19/2017 Office Visit Family Practice Nancy Matute MD [address] [place] [address] [phone] 09/26/2017 Office Visit Dermatology To Gee MD [address] [place] [address] [phone] 10/10/2017 Office Visit Gastroenterology Gadiel Pathak MD [address] [place] [address] 10/17/2017 Office Visit Gynecology Obstetrics Alberta Gould PA-C [address] [place] [address] [phone] 11/21/2017 Office Visit Family Practice Nancy Matute MD [address] [place] [address] [phone] 08/07/2018 Office Visit Sleep Disorders Lanette Fields CRNP [address] [place] [address] [phone] [place] Nurse Sleep Disorders [address] [place] [address] [phone] Health Maintenance Due Date Last Done Comments [...] Subscriber ID Type Phone Address [facility] [id number] AETNA AETNA [facility] [id number] [facility] [id number] as of this encounter
--- OUTSIDE RECORDS SUMMARY | 2023-05-10 23:43 | External Medical Summary | Summary of Care ---
Author Name Unknown Organization [place] [address] Phone Care Team Providers Care Cement Or Concrete Finishing Supervisor Name Role Phone Nancy Matute MD Primary Care Provider [phone] Reason for Visit * Reason Comments APPOINTMENT Encounter Details Date Type Department Care Team Description 08/17/2017 Telephone [place] [address] [place] [address] Nancy Matute MD [address] [place] [address] [phone] APPOINTMENT Allergies Active Allergy Reactions Severity Noted [...] area. 1 Bottle 1 05/11/2016 Active nystatin 062603 UNIT/GM creamIndications:Cand idal vulvovaginitis Apply topically to [...] Inhaler 1 06/29/2016 Active Vitamin D, Ergocalciferol, 79798 UNITS CapsuleIndications:Vi tamin D deficiency 1capsule every [...] 5 01/06/2017 Active Blood Glucose Monitoring Suppl (Marcadia BiotechUCH VERIO) W/DEVICE KITIndications:Type 2 diabetes mellitus with hemoglobin A1c goal of less than 7.0% (HCC) Use as directed. Use daily to check blood sugars DX:E11.9 1 Kit 0 01/17/2017 Active Glucose Blood (Six Degrees GroupTOUCH ULTRA BLUE) STRPIndications:Type 2 diabetes mellitus with [...] in adult ([facility]) 06/12/2017 Overview: Per Obesity protocol #1 [...] palsy ([facility]) 01/24/2012 Obstructive sleep apnea 01/18/2011 Overview: [...] in adult ([facility] ) 12/09/2015 01/17/2017 Overview: bmi= 48.04 12/09/15 Need for shingles vaccine 12/09/20152015 Bilateral shoulder pain 08/25/2015 06/07/20 16 Bilateral shoulder pain 07/16/2015 06/07/20 16 Cerebral palsy ([facility]) 04/23/2015 03/28/2017 Candidal vulvovaginitis 02/12/2015 06/07/20 16 Obesity, morbid (more than 1 00 lbs over ideal weight or BMI > 40) ([facility]) 02/09/2015 03/28/2017 THAD (obstructive sleep apnea) [...] pain 01/24/2012 01/17/2017 Genetic Sleep Disorder Research Other*[id number] 05/13/2011 04/07/2016 Lumbosacral spondylosis 12/27/2010 05/25/20 12 Dyslipidemia, goal LDL below 130 06/01/2010 03/28/2012 Asthma with severity to be determined 03/04/2010 11/01/2011 Overview: Per Asthma Taxonomy ICD-10 update of inactive term Asthma in remission 03/04/2010 01/09/2013 Overview: Per Provider Protocol. Obesity, morbid (more than 1 00 lbs over ideal weight or BMI > 40) ([facility]) 12/08/2009 07/02/2014 Overview: Per Obesity Taxonomy ICD-10 [...] Miscellaneous Notes * Telephone Encounter - Rachel Dallas OSA - 08/18/2017 1:13 PM EST Left phone message with Francisca to call back and schedule an appointment * Telephone Encounter - Susan Rosales RN - 08/17/2017 1:44 PM EST You can use 2 acutes with anyone or schedule hospital f/u with any provider in [place] * Telephone Encounter - Susan Scott OSA - 08/17/2017 12:56 PM EST Trying to schedule the patient for a hospital discharge and the two days open are 08/22/17 and 08/29/17 and the patient already has appointments scheduled at [facility]. Please call Dayan at [facility] to schedule the patient. in this encounter Plan of Treatment Upcoming Encounters Date Type Specialty Care Team Description 08/25/2017 Office Visit Urology Kavya Ramirez MD [address] [place] [address] 09/19/2017 Office Visit Gastroenterology Lyssa Stout CRNP [address] [place] [address] [phone] 09/19/2017 Office Visit Family Practice Nancy Matute MD [address] [place] [address] [phone] 09/26/2017 Office Visit Dermatology To Gee MD [address] [place] [address] [phone] 10/10/2017 Office Visit Gastroenterology Gadiel Pathak MD [address] [place] [address] 10/17/2017 Office Visit Gynecology Obstetrics Alberta Gould PA-C [address] [facility] [address] [phone] 11/21/2017 Office Visit Family Practice Nancy Matute MD [address] [place] [address] [phone] 08/07/2018 Office Visit Sleep Disorders [facility]ette Fields CRNP [facility] [place] [address] [phone] [place] Nurse Sleep Disorders [facility] [place] [address] [phone] Health Maintenance Due Date Last Done Comments [...] / Group Subscriber ID Type Phone Address [facility] [id number] [employer] [facility] [id number] [facility] [id number] as of this encounter
--- OUTSIDE RECORDS SUMMARY | 2023-05-10 23:43 | External Medical Summary | Summary of Care ---
Author Name Unknown Organization [place] [address] Phone Care Team Providers Care Sports Book Server Name Role Phone Nancy Matute MD Primary Care Provider [phone] Reason for Visit * Reason Comments ADVICE Encounter Details Date Type Department Care Team Description 08/22/2017 Telephone Urology, [place] [address] [place] [address] Kavya Ramirez MD [address] [place] [address] ADVICE Allergies Active Allergy Reactions [...] area. 1 Bottle 1 05/11/2016 Active nystatin 460739 UNIT/GM creamIndications:Cand idal vulvovaginitis Apply topically to [...] Inhaler 1 06/29/2016 Active Vitamin D, Ergocalciferol, 03999 UNITS CapsuleIndications:Vi tamin D deficiency 1capsule every [...] 5 01/06/2017 Active Blood Glucose Monitoring Suppl (PayUsLessRx.comTOUCH VERIO) W/DEVICE KITIndications:Type 2 diabetes mellitus with hemoglobin A1c goal of less than 7.0% (HCC) Use as directed. Use daily to check blood sugars DX:E11.9 1 Kit 0 01/17/2017 Active Glucose Blood (PayUsLessRx.comTOUCH ULTRA BLUE) STRPIndications:Type 2 diabetes mellitus with [...] pain 01/24/2012 01/17/2017 Genetic Sleep Disorder Research Other*[id number] 05/13/2011 04/07/2016 Lumbosacral spondylosis 12/27/2010 05/25/20 12 [...] Telephone Encounter - Saloni Katz RN - 08/23/2017 10:44 AM EST Called and spoke to patient. Ms Bustos states she was very confused yesterday. I explained that on Monday08/21/17 I called and spoke to [facility] (telephone encounter). Patient is being followed by Dr Escobar, urologist. I was told at that time they would contact patient to clarify the appointment scheduled with Dr Escobar in November * Telephone Encounter - Rosaura Meng OSA - 08/22/2017 2:57 PM EST Patient called very confused on who cancelled her appointment for 08/[address] Ramirez. She statedthat she was referred to us by Dr Matute. I explained that she would have to call there office to see exactly what was going. She stated she was so confused on what was going on. She stated she was going to call Dr Matute's office and find out what exactly she should be doing . Thank you THAD Delong 3:00 PM 08/22/2017 in this encounter Plan of Treatment Upcoming Encounters Date Type Specialty Care Team Description 09/19/2017 Office Visit [facility]ology [facility]out CR[facility] [address] [facility] [place] [address] [phone] 09/19/2017 Office Visit Family Practice Nancy Matute MD [address] [place] [address] [phone] 09/26/2017 Office Visit Dermatology To Gee MD [address] [place] [address] [phone] 10/10/2017 Office Visit Gastroenterology Gadiel Pathak MD [address] [place] [address] [phone] 10/17/2017 Office Visit Gynecology Obstetrics Alberta Gould, PA-C [address] [place] [address] [phone] 11/21/2017 Office Visit [facility] Nancy Matute MD [address] [place] [address] [phone] 08/07/2018 Office Visit Sleep Disorders Lanette Fields CRNP [address] [place] [address] [phone] [place] Nurse Sleep Disorders [address] [place] [address] [phone] Health Maintenance Due Date Last Done Comments [...] ID Type Phone Address [facility] [id number] [employer] [facility] [id number] [facility] [id number] as of this encounter
--- OUTSIDE RECORDS SUMMARY | 2023-05-10 23:43 | External Medical Summary | Summary of Care ---
Author Name Unknown Organization [place] [address] Phone Care Team Providers Care Cover Maker Name Role Phone Nancy Matute MD Primary Care Provider [phone] Encounter Details Date Type Department Care Team Description 08/09/2017 Scan Encounter Unspecified Department <No scans attached> [...] area. 1 Bottle 1 05/11/2016 Active nystatin 375537 UNIT/GM creamIndications:Cand idal vulvovaginitis Apply topically to [...] Inhaler 1 06/29/2016 Active Vitamin D, Ergocalciferol, 50059 UNITS CapsuleIndications:Vi tamin D deficiency 1capsule every [...] 5 01/06/2017 Active Blood Glucose Monitoring Suppl (BrndstrTOUCH VERIO) W/DEVICE KITIndications:Type 2 diabetes mellitus with hemoglobin A1c goal of less than 7.0% (HCC) Use as directed. Use daily to check blood sugars DX:E11.9 1 Kit 0 01/17/2017 Active Glucose Blood (BrndstrTOUCH ULTRA BLUE) STRPIndications:Type 2 diabetes mellitus with [...] pain 01/24/2012 01/17/2017 Genetic Sleep Disorder Research Other*[id number] 05/13/2011 04/07/2016 Lumbosacral spondylosis 12/27/2010 09/14/20 12 [...] Lyssa Stout CRNP [address] [facility] [address] [phone] 08/25/2017 Office Visit Urology Kavya Ramirez MD [address] [place] [address] 08/29/2017 Office Visit Gastroenterology Gadiel Pathak MD [address] [place] [address] 09/26/2017 Office Visit Dermatology To Gee MD [address] [place] [address] [phone] 10/17/2017 Office Visit Gynecology Obstetrics Alberta Gould PA-C [address] [place] [address] [phone] 11/21/2017 Office Visit Family Practice Nancy Matute MD [address] [facility] [address] [phone] 08/07/2018 Office Visit Sleep Disorders Lanette Fields CRNP [address] [place] [address] [phone] [place], Nurse Sleep Disorders [address] [place] [address] [phone] Health Maintenance Due Date Last Done Comments [...] / Group Subscriber ID Type Phone Address [facility] [id number] [facility] [facility] [id number] [facility] [id number] as of this encounter
--- OUTSIDE RECORDS SUMMARY | 2023-05-10 23:43 | External Medical Summary | Summary of Care ---
Author Name Unknown Organization [place] [address] Phone Care Team Providers Care Supervisor Ore Dressing Name Role Phone Nancy Roberts MD Primary Care Provider [phone] Reason for Visit * Reason Comments MEDICATION REFILL Encounter Details Date Type Department Care Team Description 08/24/[address] [address] Nancy Roberts MD [address] [place] [address] [phone] Cutaneous candidiasis;Candidal vulvovaginitis Allergies Active Allergy Reactions Severity Noted [...] Inhaler 1 06/29/2016 Active Vitamin D, Ergocalciferol, 17678 UNITS CapsuleIndications: Vitamin D deficiency 1capsule every [...] 5 01/06/2017 Active Blood Glucose Monitoring Suppl (SpiracurTOUCH VERIO) W/DEVICE KITIndications:Type 2 diabetes mellitus with hemoglobin A1c goal of less than 7.0% (HCC) Use as directed. Use daily to check blood sugars DX:E11.9 1 Kit 0 01/17/2017 Active Glucose Blood (SpiracurTOUCH ULTRA BLUE) STRPIndications:Typ e 2 diabetes mellitus with hemoglobin A1c goal of less than 7.0% (HCC) Use as directed 4 times a day as needed for Other (Use daily to check blood sugars DX:E11.9). Use up to four times a day as directed 100 [address] 11 01/17/2017 Active SpiracurTOUCH ULTRASOFT LANCETS MISCIndications:Typ e 2 diabetes mellitus [...] allergies 30 Tab 11 07/19/2017 Active nystatin 833458 UNIT/GM creamIndications:Ca ndidal vulvovaginitis Apply topically to affected area 2 times a day. To affacted area for two weeks. 15 g 2 08/24/2017 Active nystatin 054545 UNIT/GM creamIndications:Ca ndidal vulvovaginitis Apply topically to [...] palsy ([facility]) 01/24/2012 Obstructive sleep apnea 01/18/2011 [...] pain 01/24/2012 01/17/2017 Genetic Sleep Disorder Research Other*[id number] 05/13/2011 04/07/2016 Lumbosacral spondylosis 12/27/2010 05/25/20 12 [...] Telephone Encounter - Nancy Roberts MD - 08/24/2017 4:27 PM EST Signed Prescriptions: Disp Refills nystatin 787424 UNIT/GM cream 15 g 2 Sig: Apply topically to affected area 2 times a day. To affacted area for two weeks. Authorizing Provider: Nancy ROBERTS * Telephone Encounter - Sarahi Alee Osborne, [facility] - 08/24/2017 12:35 PM EST Pending Prescriptions: Disp Refills nystatin 420150 UNIT/GM cream 15 g 2 Sig: Apply topically to affected area 2 times a day. To affacted area for two weeks. Last Office Visit: 07/19/2017 Next Office Visit: 09/19/2017 Scheduled Provider(s): Nancy Roberts MD If no future appointments scheduled, and last appointment is greater than a year ago, please schedule patient for a follow-up appointment Last date the medication was ordered: 06/07/16 Phone number(s): [phone] (home) Labs: CREATININE(mg/dL) Lucio Dt/Tm Resulted Value [...] Office Visit Gastroenterology Lyssa Stout CRNP [address] [place] [address] [phone] 09/19/2017 Office Visit Family Practice Nancy Roberts MD [address] [place] [address] [phone] 09/26/2017 Office Visit Dermatology To Gee MD [address] [place] [address] [phone] 10/10/2017 Office Visit Gastroenterology Gadiel Pathak MD [address] [place] [address] [phone] 10/17/2017 Office Visit Gynecology Obstetrics Alberta Gould PA-C [address] [place] [address] [phone] 11/21/2017 Office Visit Family Practice Nancy Roberts MD [address] [place] [address] [phone] 08/07/2018 Office Visit Sleep Disorders Lanette Fields CRNP [address] [place] [address] [phone] [place] Nurse Sleep Disorders [address] [place] [address] [phone] Health Maintenance Due Date Last Done Comments [...] fileas of this encounter Visit Diagnoses Diagnosis Cutaneous candidiasis Candidiasis of skin and nails Candidal vulvovaginitis Candidiasis of vulva and vagina in this encounter Insurance Payer Benefit Plan / Group Subscriber ID Type Phone Address [facility] [id number] AETNA AETNA [facility] [id number] [facility] [id number] as of this encounter
--- OUTSIDE RECORDS SUMMARY | 2023-05-10 23:43 | External Medical Summary | Summary of Care ---
Author Name Unknown Organization [place] [address] Phone Care Team Providers Care Quickbooks Bookkeeper Name Role Phone Nancy Matute MD Primary Care Provider [phone] Reason for Visit * Reason Comments ADVICE Encounter Details Date Type Department Care Team Description 08/21/2017 Telephone Urology, [place] [address] [place] [address] Kavya Ramirez MD [address] [place] [address] ADVICE Allergies Active Allergy Reactions [...] area. 1 Bottle 1 05/11/2016 Active nystatin 609300 UNIT/GM creamIndications:Cand idal vulvovaginitis Apply topically to [...] Inhaler 1 06/29/2016 Active Vitamin D, Ergocalciferol, 72305 UNITS CapsuleIndications:Vi tamin D deficiency 1capsule every [...] 5 01/06/2017 Active Blood Glucose Monitoring Suppl (BIO WellnessTOUCH VERIO) W/DEVICE KITIndications:Type 2 diabetes mellitus with hemoglobin A1c goal of less than 7.0% (HCC) Use as directed. Use daily to check blood sugars DX:E11.9 1 Kit 0 01/17/2017 Active Glucose Blood (BIO WellnessTOUCH ULTRA BLUE) STRPIndications:Type 2 diabetes mellitus with [...] pain 01/24/2012 01/17/2017 Genetic Sleep Disorder Research Other*[id number] 05/13/2011 04/07/2016 Lumbosacral spondylosis 12/27/2010 05/25/20 12 [...] with Dr Ramirez Monday08/25/17 per message from [facility]. * Telephone Encounter - Jaleesa Buck LPN - 08/21/2017 3:32 PM EST Pt is scheduled with at [facility] in urology 11/2017 Questions why she is being referred to [place]/does not want to be scheduled there Wants to cancel the appt with 08/25/17 * Telephone Encounter - Maggie Law OSA - 08/21/2017 3:16 PM EST Patient calling and would like to know who referred her and for what. Patient given that information. She states now she has a catheter. What will be done at the appointment. # [phone]. Maggie Law, THAD 3:19 PM 08/21/2017 in this encounter Plan of Treatment Upcoming Encounters Date Type Specialty Care Team Description 08/25/2017 Office Visit Urology Kavya Ramirez MD [address] [place] [address] 09/19/2017 Office Visit Gastroenterology Lyssa Stout CRNP [address] [place] [address] [phone] 09/19/2017 Office Visit Family Practice Nancy Matute MD [address] [place] [address] [phone] 09/26/2017 Office Visit Dermatology To Gee MD [address] [place] [address] [phone] 10/10/2017 Office Visit Gastroenterology Gadiel Pathak MD [address] [place] [address] 10/17/2017 Office Visit Gynecology Obstetrics Alberta Gould PA-C [address] [place] [address] [phone] 11/21/2017 Office Visit Family Practice Nancy Matute MD [address] [place] [address] [phone] 08/07/2018 Office Visit Sleep Disorders [facility]ette Fields CRNP [address] [facility] [address] [phone] Nurse [place] Sleep Disorders [address] [facility] [place] [address] [phone] Health Maintenance Due Date Last Done Comments [...] Subscriber ID Type Phone Address [facility] [id number] [employer] [facility] [id number] [facility] [id number] as of this encounter
--- OUTSIDE RECORDS SUMMARY | 2023-05-10 23:44 | External Medical Summary | Summary of Care ---
Author Name Unknown Organization [place] [address] Phone Care Team Providers Care Chalk Machine Operator Name Role Phone Nancy Matute MD Primary Care Provider [phone] Encounter Details Date Type Department Care Team Description 07/31/2017 Scan Encounter Unspecified Department <No scans attached> [...] area. 1 Bottle 1 05/11/2016 Active nystatin 145906 UNIT/GM creamIndications:Cand idal vulvovaginitis Apply topically to [...] Inhaler 1 06/29/2016 Active Vitamin D, Ergocalciferol, 89415 UNITS CapsuleIndications:Vi tamin D deficiency 1capsule every [...] 5 01/06/2017 Active Blood Glucose Monitoring Suppl (UBIKODTOUCH VERIO) W/DEVICE KITIndications:Type 2 diabetes mellitus with hemoglobin A1c goal of less than 7.0% (HCC) Use as directed. Use daily to check blood sugars DX:E11.9 1 Kit 0 01/17/2017 Active Glucose Blood (UBIKODTOUCH ULTRA BLUE) STRPIndications:Type 2 diabetes mellitus with [...] of less than 7.0% ([facility]) Take 1 Tab by mouth 2 times [...] 50.0 to 59.9 in adult ([facility]) 06/12/2017 Overview: Per Obesity protocol #1 Chronic [...] Chronic rhinitis 03/27/2012 Cerebral palsy ([facility]) 01/24/2012 Obstructive sleep apnea 01/18/2011 Overview: 08/18/11 [...] pain 08/19/2016 01/17/2017 Hepatic cirrhosis ([facility]) 08/19/2016 03/28/20 [...] pain 01/24/2012 01/17/2017 Genetic Sleep Disorder Research Other*[id number] 05/13/2011 04/07/2016 Lumbosacral spondylosis 12/27/2010 09/14/20 12 [...] Lys[facility] Stout [facility] [address] [facility] [address] [phone] 08/25/2017 Office Visit Urology Kavya Ramirez MD [address] [place] [address] 08/29/2017 Office Visit Gastroenterology Gadiel Pathak MD [address] [place] [address] 09/26/2017 Office Visit Dermatology To Gee MD [address] [place] [address] [phone] 10/17/2017 Office Visit Gynecology Obstetrics Alberta Gould PA-C [address] [place] [address] [phone] 11/21/2017 Office Visit Family Practice [facility] MD [address] [facility] [address] [phone] 08/07/2018 Office Visit Sleep Disorders Lanette Fields CRNP [address] [place] [address] [phone] [place], Nurse Sleep Disorders [address] [place] [address] [phone] Health Maintenance Due Date Last Done Comments [...] Subscriber ID Type Phone Address [facility] [id number] [facility] [facility] [id number] [facility] [id number] as of this encounter
--- OUTSIDE RECORDS SUMMARY | 2023-05-10 23:44 | External Medical Summary | Summary of Care ---
Author Name Unknown Organization [facility] Address [address] Phone Care Team Providers Care Animal Assistant Name Role Phone Nancy Matute MD Primary Care Provider [phone] Encounter Details Date Type Department Care Team Description 07/27/2017 Scan Encounter Unspecified Department <No scans attached> [...] area. 1 Bottle 1 05/11/2016 Active nystatin 757419 UNIT/GM creamIndications:Cand idal vulvovaginitis Apply topically to [...] Inhaler 1 06/29/2016 Active Vitamin D, Ergocalciferol, 97407 UNITS CapsuleIndications:Vi tamin D deficiency 1capsule every [...] 5 01/06/2017 Active Blood Glucose Monitoring Suppl (INTTRATOUCH VERIO) W/DEVICE KITIndications:Type 2 diabetes mellitus with hemoglobin A1c goal of less than 7.0% (HCC) Use as directed. Use daily to check blood sugars DX:E11.9 1 Kit 0 01/17/2017 Active Glucose Blood (INTTRATOUCH ULTRA BLUE) STRPIndications:Type 2 diabetes mellitus with [...] of less than 7.0% ([facility]) Take 1 Tab by mouth 2 [...] pain 01/24/2012 01/17/2017 Genetic Sleep Disorder Research Other*[id number] 05/13/2011 04/07/2016 Lumbosacral spondylosis 12/27/2010 09/14/20 12 [...] Visit Gastroenterology Lyssa Stout CR[facility] [address] [facility] [address] [phone] 08/25/2017 Office Visit Urology Kavya Ramirez MD [address] [place] [address] 08/29/2017 Office Visit Gastroenterology Gadiel Pathak MD [address] [place] [address] 09/26/2017 Office Visit Dermatology To Gee MD [address] [place] [address] [phone] 10/17/2017 Office Visit Gynecology Obstetrics Alberta Gould PA-C [address] [place] [address] [phone] 11/21/2017 Office Visit Family Practice Nancy Matute MD [address] [facility] [address] [phone] 08/07/2018 Office Visit Sleep Disorders Lanette Fields CRNP [address] [place] [address] [phone] [place], Nurse Sleep Disorders [address] [place] [address] [phone] Health Maintenance Due Date Last Done Comments [...] ID Type Phone Address [facility] [id number] [employer] [facility] [id number] [facility] [id number] as of this encounter
--- OUTSIDE RECORDS SUMMARY | 2023-05-10 23:44 | External Medical Summary | Summary of Care ---
Author Name Unknown Organization [place] [address] Phone Care Team Providers Care Underwriting Support Manager Name Role Phone Nancy Matute MD Primary Care Provider [phone] Reason for Visit * Reason Comments FYI Encounter Details Date Type Department Care Team Description 07/24/2017 Telephone [address] [place] [address] Nancy Matute MD [address] [place] [address] [phone] FYI Allergies Active Allergy Reactions Severity Noted [...] area. 1 Bottle 1 05/11/2016 Active nystatin 828124 UNIT/GM creamIndications:Cand idal vulvovaginitis Apply topically to [...] Inhaler 1 06/29/2016 Active Vitamin D, Ergocalciferol, 08017 UNITS CapsuleIndications:Vi tamin D deficiency 1capsule every [...] 5 01/06/2017 Active Blood Glucose Monitoring Suppl (RavnUCH VERIO) W/DEVICE KITIndications:Type 2 diabetes mellitus with hemoglobin A1c goal of less than 7.0% (HCC) Use as directed. Use daily to check blood sugars DX:E11.9 1 Kit 0 01/17/2017 Active Glucose Blood (SkyBridgeTOUCH ULTRA BLUE) STRPIndications:Type 2 diabetes mellitus with [...] Atypical chest pain 08/19/2016 01/17/2017 Hepatic cirrhosis ([facility]) 08/19/2016 03/28/20 [...] pain 01/24/2012 01/17/2017 Genetic Sleep Disorder Research Other*[id number] 05/13/2011 04/07/2016 Lumbosacral spondylosis 12/27/2010 05/25/20 12 Dyslipidemia, goal LDL below 130 06/01/2010 03/28/2012 Asthma with severity to be determined 03/04/2010 11/01/2011 Overview: Per Asthma Taxonomy ICD-10 update of inactive term Asthma in remission 03/04/2010 01/09/2013 Overview: Per Provider Protocol. Obesity, morbid (more than 1 00 lbs over ideal weight or BMI > 40) ([facility]) 12/08/2009 07/02/2014 Overview: Per Obesity [...] Encounters Date Type Specialty Care Team Description 08/08/2017 Office Visit Gastroenterology Lyssa Stout CRNP 132 [facility] [place] [address] [phone] 08/25/2017 Office Visit Urology Kavya Ramirez MD [address] [place] [facility] [place] [place] [address] 08/29/2017 Office Visit Gastroenterology Gadiel Pathak MD [address] [place] [address] 09/26/2017 Office Visit Dermatology To Gee MD 200 [facility] [place] [address] [phone] 10/17/2017 Office Visit Gynecology Obstetrics Alberta Gould, PA-C [address] [facility] [place] [address] [phone] 11/21/2017 Office Visit Family Practice Nancy Matute MD [address] [place], [place] [address] 08/07/2018 Office Visit Sleep Disorders Lanette Fields CRNP 132 [facility] [place] [address] [place] Nurse Sleep Disorders 132 [facility] [place] [address] [phone] Health Maintenance Due Date Last Done Comments [...] ID Type Phone Address [facility] [id number] [facility] [facility] [id number] [facility] [id number] as of this encounter
--- OUTSIDE RECORDS SUMMARY | 2023-05-10 23:44 | External Medical Summary | Summary of Care ---
Author Name Unknown Organization [place] [address] Phone Care Team Providers Care Monogram Machine Operator Name Role Phone Nancy Matute MD Primary Care Provider Reason for Visit * Reason Comments FORMS REQUEST [facility] Encounter Details Date Type Department Care Team Description 07/26/2017 Telephone [place] [address] [place] [address] Nancy Matute MD [address] [place] [address] [phone] FORMS REQUEST ([facility]) Allergies Active Allergy Reactions Severity [...] area. 1 Bottle 1 05/11/2016 Active nystatin 675060 UNIT/GM creamIndications:Cand idal vulvovaginitis Apply topically to [...] Inhaler 1 06/29/2016 Active Vitamin D, Ergocalciferol, 67492 UNITS CapsuleIndications:Vi tamin D deficiency 1capsule every [...] 5 01/06/2017 Active Blood Glucose Monitoring Suppl ([employer] VERIO) W/DEVICE KITIndications:Type 2 diabetes mellitus with hemoglobin A1c goal of less than 7.0% (HCC) Use as directed. Use daily to check blood sugars DX:E11.9 1 Kit 0 01/17/2017 Active Glucose Blood (Lemon CurveUCH ULTRA BLUE) STRPIndications:Type 2 diabetes mellitus with [...] pain 01/24/2012 01/17/2017 Genetic Sleep Disorder Research Other*[id number] 05/13/2011 04/07/2016 Lumbosacral spondylosis 12/27/2010 05/25/20 12 [...] Office Visit Gastroenterology Lyssa Stout CRNP 132 [facility] [place] [address] [phone] 08/25/2017 Office Visit Urology Kavya Ramirez MD [address] [place] [address] 08/29/2017 Office Visit Gastroenterology Gadiel Pathak MD [address] [place] [address] 09/26/2017 Office Visit Dermatology To Gee MD [address] [facility] [place] [address] [phone] 10/17/2017 Office Visit Gynecology Obstetrics Alberta Gould PA-C 132 [place] [address] [phone] 11/21/2017 Office Visit Family Practice Nancy Matute MD [address] [place] [address] [phone] 08/07/2018 Office Visit Sleep Disorders Lanette Fields CRNP 132 [facility] [place] [address] [phone] Nurse Kentrell Sleep Disorders 132 [place] [address] [phone] Health Maintenance Due Date Last Done Comments [...] Group Subscriber ID Type Phone Address [facility] [id number] [employer] [facility] [facility] [id number] [facility] [id number] as of this encounter
--- OUTSIDE RECORDS SUMMARY | 2023-05-10 23:44 | External Medical Summary | Summary of Care ---
Author Name Unknown Organization [place] [address] Phone Care Team Providers Care Wall Man Name Role Phone Nancy Matute MD Primary Care Provider [phone] Encounter Details Date Type Department Care Team Description 07/28/2017 Scan Encounter Unspecified Department <No scans attached> [...] area. 1 Bottle 1 05/11/2016 Active nystatin 900033 UNIT/GM creamIndications:Cand idal vulvovaginitis Apply topically to [...] Inhaler 1 06/29/2016 Active Vitamin D, Ergocalciferol, 09090 UNITS CapsuleIndications:Vi tamin D deficiency 1capsule every [...] 5 01/06/2017 Active Blood Glucose Monitoring Suppl (Offbeat GuidesTOUCH VERIO) W/DEVICE KITIndications:Type 2 diabetes mellitus with hemoglobin A1c goal of less than 7.0% (HCC) Use as directed. Use daily to check blood sugars DX:E11.9 1 Kit 0 01/17/2017 Active Glucose Blood (Offbeat GuidesTOUCH ULTRA BLUE) STRPIndications:Type 2 diabetes mellitus with [...] pain 01/24/2012 01/17/2017 Genetic Sleep Disorder Research Other*[id number] 05/13/2011 04/07/2016 Lumbosacral spondylosis 12/27/2010 09/14/20 12 [...] Gastroenterology Lyssa Stout CRNP [address] [facility] [address] [phone] 08/25/2017 Office Visit Urology Kavya Ramirez MD [address] [place] [address] 08/29/2017 Office Visit Gastroenterology Gadiel Pathak MD [address] [place] [address] 09/26/2017 Office Visit Dermatology To Gee MD [address] [place] [address] [phone] 10/17/2017 Office Visit Gynecology Obstetrics Alberta Gould PA-C [address] [place] [address] [phone] 11/21/2017 Office Visit Family Practice Nancy Matute MD [address] [facility] [address] [phone] 08/07/2018 Office Visit Sleep Disorders Lanette Fields CRNP [address] [place] [address] [phone] [place], Nurse Sleep Disorders [address] [place] [address] [phone] Health Maintenance Due Date Last Done Comments [...] / Group Subscriber ID Type Phone Address [facility] [id number] [employer] [facility] [id number] [facility] [id number] as of this encounter
--- OUTSIDE RECORDS SUMMARY | 2023-05-10 23:44 | External Medical Summary | Summary of Care ---
Author Name Unknown Organization [place] [address] Phone Care Team Providers Care Edi Analyst Name Role Phone Nancy Matute MD Primary Care Provider [phone] Encounter Details Date Type Department Care Team [...] area. 1 Bottle 1 05/11/2016 Active nystatin 246238 UNIT/GM creamIndications:Cand idal vulvovaginitis Apply topically to [...] Inhaler 1 06/29/2016 Active Vitamin D, Ergocalciferol, 17715 UNITS CapsuleIndications:Vi tamin D deficiency 1capsule every [...] 5 01/06/2017 Active Blood Glucose Monitoring Suppl (InstamediaTOUCH VERIO) W/DEVICE KITIndications:Type 2 diabetes mellitus with hemoglobin A1c goal of less than 7.0% (HCC) Use as directed. 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 01/17/2017 Acquired hypothyroidism 12/12/2016 Depression with anxiety 08/19/2016 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 1 10/09/2015 Restrictive lung disease 12/10/2014 Allergic rhinitis 05/29/2014 Type 2 diabetes mellitus with hemoglobin A1c goal of less than 7.0% ([facility]) 09/26/2013 Overview: ICD-10 update of inactive term Vitamin D deficiency 09/26/2013 Lymphedema 03/11/2013 Intermittent asthma with reliever use up to twice per week 01/09/2013 Stasis dermatitis 05/07/2012 NG (nonalcoholic steatohepatitis) 04/12 Diverticulosis of colon 05/02/2012 HTN, goal below 140/90 03/27/2012 Chronic rhinitis 03/27/2012 Cerebral palsy ([facility]) 01/24/2012 Obstructive sleep apnea 01/18/2011 [...] Atypical chest pain 08/19/2016 01/17/2017 Hepatic cirrhosis ([facility]) 08/19/2016 03/28/20 17 Polyuria 08/09/2016 01/17/2017 Urinary frequency 08/09/2016 01/17/2017 Generalized OA 06/14/2016 03/28/2017 Body mass index (BMI) of 45.0-49.9 in adult ([facility] ) 12/09/2015 01/17/2017 Overview: bmi= 48.04 12/09/15 Need for shingles vaccine 12/09/20152015 Bilateral shoulder pain 08/25/2015 06/07/20 16 Bilateral shoulder pain 07/16/2015 06/07/20 16 Cerebral palsy ([facility]) 04/23/2015 03/28/2017 Candidal vulvovaginitis 02/12/2015 06/07/20 16 Obesity, morbid (more than 1 00 lbs over ideal weight or BMI > 40) ([facility]) 02/09/2015 03/28/2017 THAD (obstructive sleep [...] BMI > 40) ([facility]) 10/28/2013 01/17/2017 Overview: bmi= 53.93 [...] pain 01/24/2012 01/17/2017 Genetic Sleep Disorder Research Other*[id number] 05/13/2011 04/07/2016 Lumbosacral spondylosis 12/27/2010 09/14/20 12 [...] Office Visit Gastroenterology Lyssa Stout CRNP [address] [facility] [address] [phone] 08/25/2017 Office Visit Urology Kavya Ramirez MD [address] [place] [address] 08/29/2017 Office Visit Gastroenterology Gadiel Pathak MD [address] [place] [address] 09/26/2017 Office Visit Dermatology To Gee MD [address] [place] [address] [phone] 10/17/2017 Office Visit Gynecology Obstetrics Alberta Gould PA-C [address] [place] [address] [phone] 11/21/2017 Office Visit Family Practice Nancy Matute MD [address] [facility] [address] [phone] 08/07/2018 Office Visit Sleep Disorders Lanette Fields CRNP [address] [place] [address] [phone] [place], Nurse Sleep Disorders [address] [place] [address] [phone] Health Maintenance Due Date Last Done Comments [...] Phone Address [facility] [id number] [employer] [id number] [facility] [id number] as of this encounter
--- OUTSIDE RECORDS SUMMARY | 2023-05-10 23:44 | External Medical Summary | Summary of Care ---
Author Name Unknown Organization [place] [address] Phone Care Team Providers Care Embedded Processor Name Role Phone Nancy Matute MD Primary Care Provider [phone] Encounter Details Date Type Department Care Team [...] area. 1 Bottle 1 05/11/2016 Active nystatin 260007 UNIT/GM creamIndications:Cand idal vulvovaginitis Apply topically to [...] Inhaler 1 06/29/2016 Active Vitamin D, Ergocalciferol, 84854 UNITS CapsuleIndications:Vi tamin D deficiency 1capsule every [...] 5 01/06/2017 Active Blood Glucose Monitoring Suppl (NeoMed IncTOUCH VERIO) W/DEVICE KITIndications:Type 2 diabetes mellitus with hemoglobin A1c goal of less than 7.0% (HCC) Use as directed. Use daily to check blood sugars DX:E11.9 1 Kit 0 01/17/2017 Active Glucose Blood (NeoMed IncTOUCH ULTRA BLUE) STRPIndications:Type 2 diabetes mellitus with [...] of less than 7.0% ([facility]) Take 1 Tab by mouth 2 [...] pain 01/24/2012 01/17/2017 Genetic Sleep Disorder Research Other*[id number] 05/13/2011 04/07/2016 Lumbosacral spondylosis 12/27/2010 09/14/20 12 [...] Office Visit Gastroenterology Lyssa Stout CRNP [address] [facility] [address] [phone] 08/25/2017 Office Visit Urology Kavya Ramirez MD [address] [place] [address] 08/29/2017 Office Visit Gastroenterology Gadiel Pathak MD [address] [place] [address] 09/26/2017 Office Visit Dermatology To Gee MD [address] [place] [address] [phone] 10/17/2017 Office Visit Gynecology Obstetrics Alberta Gould PA-C [address] [place] [address] [phone] 11/21/2017 Office Visit Family Practice Nancy Matute MD [address] [facility] [address] [phone] 08/07/2018 Office Visit Sleep Disorders Lanette Fields CRNP [address] [place] [address] [phone] [place], Nurse Sleep Disorders [address] [place] [address] [phone] Health Maintenance Due Date Last Done Comments [...] Subscriber ID Type Phone Address [facility] [id number] [employer] [id number] [facility] [id number] as of this encounter
--- OUTSIDE RECORDS SUMMARY | 2023-05-10 23:44 | External Medical Summary | Summary of Care ---
Author Name Unknown Organization [place] [address] Phone Care Team Providers Care Card Scraper Name Role Phone Nancy Matute MD Primary Care Provider [phone] Reason for Visit * Reason Comments FORMS REQUEST [facility] Encounter Details Date Type Department Care Team Description 07/21/2017 Telephone [address] [place] [address] Nancy Matute MD [address] [place] [address] [phone] FORMS REQUEST ([facility]) Allergies Active Allergy Reactions Severity Noted Date [...] area. 1 Bottle 1 05/11/2016 Active nystatin 761366 UNIT/GM creamIndications:Cand idal vulvovaginitis Apply topically to [...] Inhaler 1 06/29/2016 Active Vitamin D, Ergocalciferol, 53853 UNITS CapsuleIndications:Vi tamin D deficiency 1capsule every [...] 5 01/06/2017 Active Blood Glucose Monitoring Suppl ([employer] VERIO) W/DEVICE KITIndications:Type 2 diabetes mellitus with hemoglobin A1c goal of less than 7.0% (HCC) Use as directed. Use daily to check blood sugars DX:E11.9 1 Kit 0 01/17/2017 Active Glucose Blood (ihush.comTOUCH ULTRA BLUE) STRPIndications:Type 2 diabetes mellitus with [...] pain 01/24/2012 01/17/2017 Genetic Sleep Disorder Research Other*[id number] 05/13/2011 04/07/2016 Lumbosacral spondylosis 12/27/2010 05/25/20 12 [...] 132 [facility] [place] [address] [phone] 08/25/2017 Office Visit Urology Kavya Ramirez MD [address] [place] [address] 08/29/2017 Office Visit Gastroenterology Gadiel Pathak MD [address] [place] [address] 09/26/2017 Office Visit Dermatology To Gee MD [address] [place] [address] [phone] 10/17/2017 Office Visit Gynecology Obstetrics Alberta Gould PA-C 132 [facility] [place] [address] [phone] 11/21/2017 Office Visit Family Practice Nancy Matute MD [address] [facility] [place] [address] [phone] 08/07/2018 Office Visit Sleep Disorders Lanette Fields CRNP 132 [facility] [place] [address] [phone] Nurse Kentrell Sleep Disorders [facility] [place] [address] [phone] Health Maintenance Due Date Last Done Comments [...] Type Phone Address [facility] [id number] [employer] [id number] [facility] [id number] as of this encounter
--- OUTSIDE RECORDS SUMMARY | 2023-05-10 23:44 | External Medical Summary | Summary of Care ---
Author Name Unknown Organization [place] [address] Phone Care Team Providers Care Cloth Mercerizer Operator Name Role Phone Nancy Matute MD Primary Care Provider [phone] Encounter Details Date Type Department Care Team Description 07/27/2017 Result Scan Unspecified Department <No scans attached> [...] area. 1 Bottle 1 05/11/2016 Active nystatin 938893 UNIT/GM creamIndications:Cand idal vulvovaginitis Apply topically to [...] Inhaler 1 06/29/2016 Active Vitamin D, Ergocalciferol, 70558 UNITS CapsuleIndications:Vi tamin D deficiency 1capsule every [...] 5 01/06/2017 Active Blood Glucose Monitoring Suppl (ReferlyTOUCH VERIO) W/DEVICE KITIndications:Type 2 diabetes mellitus with hemoglobin A1c goal of less than 7.0% (HCC) Use as directed. Use daily to check blood sugars DX:E11.9 1 Kit 0 01/17/2017 Active Glucose Blood (ReferlyTOUCH ULTRA BLUE) STRPIndications:Type 2 diabetes mellitus with [...] less than 7.0% ([facility]) Take 1 Tab [...] 50.0 to 59.9 in adult ([facility]) 06/12/2017 Overview: Per Obesity protocol #1 Chronic pain syndrome 01/17/2017 MEDICATION USE AGREEMENT 01/17/2017 Overview: 01/17/17 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 01/17/2017 Acquired hypothyroidism 12/12/2016 Depression with anxiety 08/19/2016 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 1 10/09/2015 Restrictive lung disease 12/10/2014 Allergic rhinitis 05/29/2014 Type 2 diabetes mellitus with hemoglobin A1c goal of less than 7.0% ([facility]) 09/26/2013 Overview: ICD-10 update of inactive term Vitamin D deficiency 09/26/2013 Lymphedema 03/11/2013 Intermittent asthma with reliever use up to twice per week 01/09/2013 Stasis dermatitis 05/07/2012 NG (nonalcoholic steatohepatitis) 04/12 Diverticulosis of colon 05/02/2012 HTN, goal below 140/90 03/27/2012 Chronic rhinitis 03/27/2012 Cerebral palsy ([facility]) 01/24/2012 Obstructive sleep apnea 01/18/2011 [...] pain 08/19/2016 01/17/2017 Hepatic cirrhosis ([facility]) 08/19/2016 03/28/20 17 Polyuria 08/09/2016 01/17/2017 Urinary frequency 08/09/2016 01/17/2017 Generalized OA 06/14/2016 03/28/2017 Body mass index (BMI) of 45.0-49.9 in adult ([facility] ) 12/09/2015 01/17/2017 Overview: bmi= 48.04 12/09/15 Need for shingles vaccine 12/09/20152015 Bilateral shoulder pain 08/25/2015 06/07/20 16 Bilateral shoulder pain 07/16/2015 06/07/20 16 Cerebral palsy ([facility]) 04/23/2015 03/28/2017 Candidal vulvovaginitis 02/12/2015 06/07/20 16 Obesity, morbid (more than 1 00 lbs over ideal weight or BMI > 40) ([facility]) 02/09/2015 03/28/2017 THAD (obstructive sleep [...] BMI > 40) ([facility]) 10/28/2013 01/17/2017 Overview: bmi= 53.93 [...] pain 01/24/2012 01/17/2017 Genetic Sleep Disorder Research Other*[id number] 05/13/2011 04/07/2016 Lumbosacral spondylosis 12/27/2010 09/14/20 12 [...] [facility] Stout CR[facility] [address] [facility] [address] [phone] 08/25/2017 Office Visit Urology Kavya Ramirez MD [address] [place] [address] 08/29/2017 Office Visit Gastroenterology Gadiel Pathak MD [address] [place] [address] 09/26/2017 Office Visit Dermatology To Gee MD [address] [place] [address] [phone] 10/17/2017 Office Visit Gynecology Obstetrics Alberta Gould PA-C [address] [place] [address] [phone] 11/21/2017 Office Visit Family Practice [facility] [address] [facility] [address] [phone] 08/07/2018 Office Visit Sleep Disorders Lanette Fields CRNP [address] [place] [address] [phone] [place], Nurse Sleep Disorders [address] [place] [address] [phone] Health Maintenance Due Date Last Done Comments [...] this encounter Results * RADIOLOGY SCANNED RESULT (07/27/2017) in this encounter Insurance Payer Benefit Plan / Group Subscriber ID Type Phone Address [facility] [id number] AETNA AETNA [facility] [id number] [facility] [id number] as of this encounter
--- OUTSIDE RECORDS SUMMARY | 2023-05-10 23:44 | External Medical Summary | Summary of Care ---
Author Name Unknown Organization [place] [address] Phone Care Team Providers Care Machine Paint Mixer Name Role Phone Nancy Matute MD Primary Care Provider [phone] Reason for Visit * Reason Comments FORMS REQUEST Home HEALTH PLAN of care Encounter Details Date Type Department Care Team Description 08/01/2017 Telephone [address] [place] [address] Nancy Matute MD [address] [place] [address] [phone] FORMS REQUEST (Home HEALTH PLAN of care) Allergies Active Allergy Reactions Severity Noted Date [...] area. 1 Bottle 1 05/11/2016 Active nystatin 216734 UNIT/GM creamIndications:Cand idal vulvovaginitis Apply topically to [...] Inhaler 1 06/29/2016 Active Vitamin D, Ergocalciferol, 39471 UNITS CapsuleIndications:Vi tamin D deficiency 1capsule every [...] 5 01/06/2017 Active Blood Glucose Monitoring Suppl ([employer] VERIO) W/DEVICE KITIndications:Type 2 diabetes mellitus with hemoglobin A1c goal of less than 7.0% (HCC) Use as directed. Use daily to check blood sugars DX:E11.9 1 Kit 0 01/17/2017 Active Glucose Blood (PlayviewsUCH ULTRA BLUE) STRPIndications:Type 2 diabetes mellitus with [...] pain 01/24/2012 01/17/2017 Genetic Sleep Disorder Research Other*[id number] 05/13/2011 04/07/2016 Lumbosacral spondylosis 12/27/2010 05/25/20 12 [...] [facility] [place] [address] [phone] 08/25/2017 Office Visit Urology Kavya Ramirez MD [address] [place] [address] 08/29/2017 Office Visit Gastroenterology Gadiel Pathak MD [address] [place] [address] 09/26/2017 Office Visit Dermatology To Gee MD [address] [place] [address] [phone] 10/17/2017 Office Visit Gynecology Obstetrics Alberta Gould PA-C [address] [place] [address] [phone] 11/21/2017 Office Visit Family Practice Nancy Matute MD [address] [place] [address] [phone] 08/07/2018 Office Visit Sleep Disorders Lanette Fields CRNP [address] [facility] [place] [address] [phone] Nurse Kentrell Sleep Disorders [address] [place] [address] [phone] Health Maintenance Due Date Last Done Comments [...] / Group Subscriber ID Type Phone Address [facility] [id number] [employer] [id number] [facility] [id number] as of this encounter
--- OUTSIDE RECORDS SUMMARY | 2023-05-10 23:44 | External Medical Summary | Summary of Care ---
Author Name Unknown Organization [place] [address] Phone Care Team Providers Care Welcome Center Attendant Name Role Phone Nancy Matute MD Primary Care Provider [phone] Encounter Details Date Type Department Care Team Description 07/27/2017 Orders Only [address] [place] [address] Nancy Matute MD [address] [place] [address] [phone] Allergies Active Allergy Reactions Severity Noted Date [...] area. 1 Bottle 1 05/11/2016 Active nystatin 625090 UNIT/GM creamIndications:Cand idal vulvovaginitis Apply topically to [...] Inhaler 1 06/29/2016 Active Vitamin D, Ergocalciferol, 24816 UNITS CapsuleIndications:Vi tamin D deficiency 1capsule every [...] 5 01/06/2017 Active Blood Glucose Monitoring Suppl (GraphLabUCH VERIO) W/DEVICE KITIndications:Type 2 diabetes mellitus with hemoglobin A1c goal of less than 7.0% (HCC) Use as directed. Use daily to check blood sugars DX:E11.9 1 Kit 0 01/17/2017 Active Glucose Blood (PENRITHTOUCH ULTRA BLUE) STRPIndications:Type 2 diabetes mellitus with [...] pain 01/24/2012 01/17/2017 Genetic Sleep Disorder Research Other*[id number] 05/13/2011 04/07/2016 Lumbosacral spondylosis 12/27/2010 05/25/20 12 [...] Lyssa Stout CR[facility] [address] [facility] [address] [phone] 08/25/2017 Office Visit Urology Kavya Ramirez MD [address] [place] [address] 08/29/2017 Office Visit Gastroenterology Gadiel Pathak MD [address] [place] [address] 09/26/2017 Office Visit Dermatology To Gee MD [address] [facility] [place] [address] [phone] 10/17/2017 Office Visit Gynecology Obstetrics Alberta Gould PA-C [address] [facility] [place] [address] [phone] 11/21/2017 Office Visit Family Practice Nancy Matute MD [address] [place] [address] [phone] 08/07/2018 Office Visit Sleep Disorders Lanette Fields CRNP 132 [facility] [place] [address] [phone] Nurse Kentrell Sleep Disorders 132 [facility] [place] [address] [phone] Pending Results Name Priority Associated Diagnoses Date/Ti me CHEST 1 VIEW Routine 07/27/2017 12:0 0 AM EST Health Maintenance Due Date Last [...] / Group Subscriber ID Type Phone Address [facility] [id number] [employer] [id number] [facility] [id number] as of this encounter
--- OUTSIDE RECORDS SUMMARY | 2023-05-10 23:44 | External Medical Summary | Summary of Care ---
Author Name Unknown Organization [place] [address] Phone Care Team Providers Care Estate Attorney Name Role Phone Nancy Matute MD Primary Care Provider [phone] Reason for Visit * Reason Comments ADVICE Encounter Details Date Type Department Care Team Description 07/14/2017 Telephone [address] [place] [address] Nancy Matute MD [address] [place] [address] [phone] ADVICE Allergies Active Allergy Reactions Severity Noted [...] area. 1 Bottle 1 05/11/2016 Active nystatin 877446 UNIT/GM creamIndications:Ca ndidal vulvovaginitis Apply topically to affected area 2 times a day. To affacted area for two weeks. 15 g 2 06/07/2016 Active Glucosamine-Chondro itin (GLUCOSAMINE CHONDR COMPLEX) 500-400 MG CapsuleIndications: Primary osteoarthritis of knees, bilateral Take 1 Cap by mouth 3 times a day. 1 Cap 0 06/07/2016 Active albuterol (PROVENTIL HFA) 108 (90 BASE) MCG/ACT inhalerIndications: Bronchitis, complicated Inhale 2 Puffs by mouth 4 times a day. 1 Inhaler 1 06/29/2016 Active Vitamin D, Ergocalciferol, 20710 UNITS CapsuleIndications: Vitamin D deficiency 1capsule every [...] 5 01/06/2017 Active Blood Glucose Monitoring Suppl (zweitgeistUCH VERIO) W/DEVICE KITIndications:Type 2 diabetes mellitus with hemoglobin A1c goal of less than 7.0% (HCC) Use as directed. Use daily to check blood sugars DX:E11.9 1 Kit 0 01/17/2017 Active Glucose Blood (Sankaty Learning VenturesTOUCH ULTRA BLUE) STRPIndications:Typ e 2 diabetes mellitus [...] in nebulizer 2 Vial 0 06/20/2017 Active FEXOFENADINE HCL 180 MG PO TABSIndications:All ergic conjunctivitis of both eyes,Allergic rhinitis One pill by mouth once a day as needed for allergies 30 Tab 11 05/29/2014 07/19/20 17 Discontinued citalopram (CELEXA) 20 MG Tablet Take 1 Tab by mouth daily. 30 Tab 5 11/27/2015 07/19/20 17 Discontinued furosemide (LASIX) 20 MG TabletIndications:E abelardo,Stasis dermatitis One pill by mouth once a day, as needed for edema 30 Tab 5 12/28/2015 07/19/20 17 Discontinued Etodolac 500 MG Tablet Take 1 Tab by mouth 2 times a day. 60 Tab 5 06/14/2016 07/19/20 17 Discontinued omeprazole (PRILOSEC) 20 MG CPDR Take 1 Cap by mouth daily. 90 Cap 1 08/23/2016 07/19/20 17 Discontinued citalopram (CELEXA) 40 MG TabletIndications:D epression with anxiety Take 1 Tab by mouth daily. 30 Tab 5 04/17/2017 07/19/20 17 Discontinued azithromycin (ZITHROMAX Z-SUYAPA) 250 MG TabletIndications:C at scratch Take two tablets by mouth on first day, then 1 tablet daily until gone 6 Tab 0 05/01/2017 07/19/20 17 Discontinued Hydrocodone-Acetami nophen (NORCO) 10-325 MG per tabletIndications:S jennifer stenosis of lumbar region without neurogenic claudication,DDD (degenerative disc disease), lumbar,MEDICATION USE AGREEMENT Take 1 Tab by mouth 2 times a day as needed for Pain. 60 Tab 0 06/19/2017 07/17/20 17 Discontinued as of this encounter Active [...] pain 01/24/2012 01/17/2017 Genetic Sleep Disorder Research Other*[id number] 05/13/2011 04/07/2016 Lumbosacral spondylosis 12/27/2010 05/25/20 12 [...] 06/07/2016 Sleep apnea 02/08/2008 03/28/2012 Overview: Compliance 4/12 [...] Office Visit Gastroenterology Lyssa Stout CRNP [address] [place] [address] [phone] 08/25/2017 Office Visit Urology Kavya Ramirez MD [address] [place], [place] [address] 08/29/2017 Office Visit Gastroenterology Gadiel Pathak MD [address] [place] [address] 09/26/2017 Office Visit Dermatology To Gee MD [address] [place] [address] [phone] 10/17/2017 Office Visit Gynecology Obstetrics Alberta Gould, PA-C 132 [place] [address] [phone] 11/21/2017 Office Visit Family Practice Nancy Matute MD [address] [place] [address] [phone] 08/07/2018 Office Visit Sleep Disorders Lanette Fields CRNP 132 [place] [address] [phone] Kent[place] Nurse Sleep Disorders [address] [place] [address] [phone] Health Maintenance Due Date Last Done Comments [...] Subscriber ID Type Phone Address [facility] [id number] [employer] [id number] [facility] [id number] as of this encounter
--- OUTSIDE RECORDS SUMMARY | 2023-05-10 23:45 | External Medical Summary | Summary of Care ---
Author Name Unknown Organization [place] [address] Phone Care Team Providers Care Print And Pattern Designer Name Role Phone Nancy Matute MD Primary Care Provider [phone] Encounter Details Date Type Department Care Team Description 07/14/2017 Scan Encounter Unspecified Department <No scans attached> [...] area. 1 Bottle 1 05/11/2016 Active nystatin 590273 UNIT/GM creamIndications:Cand idal vulvovaginitis Apply topically to [...] Inhaler 1 06/29/2016 Active Vitamin D, Ergocalciferol, 83469 UNITS CapsuleIndications:Vi tamin D deficiency 1capsule every [...] 5 01/06/2017 Active Blood Glucose Monitoring Suppl (Prior KnowledgeTOUCH VERIO) W/DEVICE KITIndications:Type 2 diabetes mellitus with hemoglobin A1c goal of less than 7.0% (HCC) Use as directed. Use daily to check blood sugars DX:E11.9 1 Kit 0 01/17/2017 Active Glucose Blood (Prior KnowledgeTOUCH ULTRA BLUE) STRPIndications:Type 2 diabetes mellitus with [...] of less than 7.0% ([facility]) Take 1 Tab by mouth [...] in nebulizer 2 Vial 0 06/20/2017 Active as of this encounter Active Problems Problem Noted Date Debility 07/19/2017 Body mass index (BMI) of 50.0 to 59.9 in adult ([facility]) 06/12/2017 Overview: Per Obesity protocol [...] 03/27/2012 Cerebral palsy ([facility]) 01/24/2012 Obstructive sleep apnea 01/18/2011 [...] pain 08/19/2016 01/17/2017 Hepatic cirrhosis ([facility]) 08/19/2016 03/28/20 [...] BMI > 40) ([facility]) 02/09/2015 03/28/2017 THAD (obstructive sleep [...] pain 01/24/2012 01/17/2017 Genetic Sleep Disorder Research Other*[id number] 05/13/2011 04/07/2016 Lumbosacral spondylosis 12/27/2010 05/25/20 12 [...] Visit Gastroenterology [facility]sa Stout CRNP [address] [facility] [place] [address] [phone] 08/25/2017 Office Visit Urology Kavya Ramirez MD [address] [place], [place] [address] 08/29/2017 Office Visit Gastroenterology Gadiel Pathak MD [address] [place] [address] 09/26/2017 Office Visit Dermatology To Gee MD [address] [place] [address] [phone] 10/17/2017 Office Visit Gynecology Obstetrics Alberta Gould PA-C 132 [facility] [place] [address] [phone] 11/21/2017 Office Visit Family Practice Nancy Matute MD [address] [place] [address] [phone] 08/07/2018 Office Visit Sleep Disorders Lanette Fields CRNP [address] [place] [address] [phone] [place] Nurse Sleep Disorders [address] [facility] [place] [address] [phone] Health Maintenance Due Date Last Done Comments [...] Subscriber ID Type Phone Address [facility] [id number] [employer] [id number] [facility] [id number] as of this encounter
--- OUTSIDE RECORDS SUMMARY | 2023-05-10 23:45 | External Medical Summary | Summary of Care ---
Author Name Unknown Organization [place] [address] Phone Care Team Providers Care Tour Actor Name Role Phone Nancy Matute MD Primary Care Provider Reason for Visit * Reason Comments FORMS REQUEST Encounter Details Date Type Department Care Team Description 07/20/2017 Telephone [address] [place] [address] Nancy Matute MD [address] [place] [address] [phone] FORMS REQUEST Allergies Active Allergy Reactions Severity [...] area. 1 Bottle 1 05/11/2016 Active nystatin 571534 UNIT/GM creamIndications:Cand idal vulvovaginitis Apply topically to [...] Inhaler 1 06/29/2016 Active Vitamin D, Ergocalciferol, 54886 UNITS CapsuleIndications:Vi tamin D deficiency 1capsule every [...] 5 01/06/2017 Active Blood Glucose Monitoring Suppl (MemeoUCH VERIO) W/DEVICE KITIndications:Type 2 diabetes mellitus with hemoglobin A1c goal of less than 7.0% (HCC) Use as directed. Use daily to check blood sugars DX:E11.9 1 Kit 0 01/17/2017 Active Glucose Blood ([employer] [place] Photovoltaic TechnologyTOUCH ULTRA BLUE) STRPIndications:Type 2 diabetes mellitus with [...] pain 01/24/2012 01/17/2017 Genetic Sleep Disorder Research Other*[id number] 05/13/2011 04/07/2016 Lumbosacral spondylosis 12/27/2010 05/25/20 12 [...] CRNP 132 [facility] [place] [address] [phone] 08/25/2017 Office Visit Urology Kavya Ramirez MD [address] [facility] [place] [address] 08/29/2017 Office Visit Gastroenterology Gadiel Pathak MD [address] [place] [address] 09/26/2017 Office Visit Dermatology To Gee MD [address] [facility] [place] [address] [phone] 10/17/2017 Office Visit Gynecology Obstetrics Alberta Gould, PA-C [address] [facility] [place] [address] [phone] 11/21/2017 Office Visit Family Practice Nancy Matute MD [address] [place], [place] [address] 08/07/2018 Office Visit Sleep Disorders Lanette Fields CRNP 132 [facility] [place] [address] Kent[place] Nurse Sleep Disorders 132 [facility] [place] [address] [phone] Health Maintenance Due Date Last Done Comments [...] / Group Subscriber ID Type Phone Address [facility] [id number] [employer] A[employer]NA [facility] [id number] [facility] [id number] as of this encounter
--- OUTSIDE RECORDS SUMMARY | 2023-05-10 23:45 | External Medical Summary | Summary of Care ---
Author Name Unknown Organization [place] [address] Phone Care Team Providers Care Care Management Specialist Name Role Phone Nancy Matute MD Primary Care Provider [phone] Reason for Visit * Reason Comments Weight Management Encounter Details Date Type Department Care Team Description 07/18/2017 Office Visit Nutrition & Weight Management, [facility] [address] [place] [address] Gadiel Pathak MD [address] [place] [address] Morbid obesity due to excess calories (HCC)*;NG (nonalcoholic steatohepatitis);Type 2 diabetes mellitus with hemoglobin A1c goal of less than 7.0% (HCC);HTN, goal below 140/90;DDD (degenerative disc disease), lumbar;Dyslipidemia, goal LDL below 70;THAD (obstructive sleep apnea) Allergies Active Allergy Reactions Severity Noted Date [...] as needed 30 g 1 04/19/2013 Active FEXOFENADINE HCL 180 MG PO TABSIndications:Aller gic conjunctivitis of both eyes,Allergic rhinitis One pill by mouth once a day as needed for allergies 30 Tab 11 05/29/2014 Active OCEAN NASAL SPRAY 0.65 % NA SOLNIndications:Aller gic rhinitis Two sprays in each nostril as needed for nasal dryness or congestion 1 Bottle 5 05/29/2014 Active fluticasone (FLONASE) 50 MCG/ACT nasal sprayIndications:Sinu s headache Administer 2 Sprays into each nostril daily. 1 Inhaler 5 05/22/2015 Active citalopram (CELEXA) 20 MG Tablet Take 1 Tab by mouth daily. 30 Tab 5 11/27/2015 Active Azelastine HCl (ASTELIN) 0.1 % nasal sprayIndications:Otal ivis, bilateral,Dysfunction of Eustachian tube, bilateral,Chronic rhinitis Administer 2 Sprays into each nostril 2 times a day. 1 Bottle 11 12/09/2015 Active furosemide (LASIX) 20 MG TabletIndications:Erickson ma,Stasis dermatitis One pill by mouth once a day, as needed for edema 30 Tab 5 12/28/2015 Active nystatin (NYSTOP) powderIndications:Cut aneous candidiasis Apply topically to affected area 3 times a day. Sprinkle over affected area. 1 Bottle 1 05/11/2016 Active nystatin 548194 UNIT/GM creamIndications:Cand idal vulvovaginitis Apply topically to affected area 2 times a day. To affacted area for two weeks. 15 g 2 06/07/2016 Active Glucosamine-Chondroit in (GLUCOSAMINE CHONDR COMPLEX) 500-400 MG CapsuleIndications:Pr imary osteoarthritis of knees, bilateral Take 1 Cap by mouth 3 times a day. 1 Cap 0 06/07/2016 Active Etodolac 500 MG Tablet Take 1 Tab by mouth 2 times a day. 60 Tab 5 06/14/2016 Active albuterol (PROVENTIL HFA) 108 (90 BASE) MCG/ACT inhalerIndications:Br onchitis, complicated Inhale 2 Puffs by mouth 4 times a day. 1 Inhaler 1 06/29/2016 Active omeprazole (PRILOSEC) 20 MG CPDR Take 1 Cap by mouth daily. 90 Cap 1 08/23/2016 Active Vitamin D, Ergocalciferol, 39393 UNITS CapsuleIndications:Vi tamin D deficiency 1capsule every [...] 1 Kit 0 01/17/2017 Active Glucose Blood (TransBioTecTOUCH ULTRA BLUE) STRPIndications:Type 2 diabetes mellitus with [...] Dosing Unit 11 01/17/2017 Active Glucose Blood (TransBioTecTOUCH VERIO) STRP Use up to four times [...] (BUSPAR) 10 MG Tablet 0 02/14/2017 Active citalopram (CELEXA) 40 MG TabletIndications:Dep ression with anxiety Take 1 Tab by mouth daily. 30 Tab 5 04/17/2017 Active MetFORMIN (GLUCOPHAGE) 1000 MG TabletIndications:Typ e 2 diabetes mellitus with hemoglobin A1c goal of less than 7.0% ([facility]) Take 1 Tab by mouth 2 times a day. With food. 60 Tab 5 04/17/2017 Active azithromycin (ZITHROMAX Z-SUYAPA) 250 MG TabletIndications:Cat scratch Take two tablets by mouth on first day, then 1 tablet daily until gone 6 Tab 0 05/01/2017 Active traZODone (DESYREL) 50 MG TabletIndications:Sle ep [...] for Pain. 60 Tab 0 07/17/2017 Active as of this encounter Active Problems Problem Noted Date Body mass index (BMI) of 50.0 [...] pain 01/24/2012 01/17/2017 Genetic Sleep Disorder Research Other*[id number] 05/13/2011 04/07/2016 Lumbosacral spondylosis 12/27/2010 05/25/20 12 [...] Vital Sign Reading Time Taken Blood Pressure 124/80 07/18/2017 11:34 AM EST Pulse 80 07/18/2017 11:34 AM EST Temperature - - Respiratory Rate - - Oxygen Saturation - - Inhaled Oxygen Concentration - - Weight 117.9 kg (259 lb 14.4 oz) 2016 11:34 AM EST Height - - Body Mass Index 52.49 07/18/2017 11:34 AM EST in this encounter Progress Notes * Gadiel Pathak MD - 07/18/2017 11:45 AM EST Formatting of this note may [...] pounds. Wt Readings from Last 5 Encounters: 07/18/17 117.9 kg (259 lb 14.4 oz) 06/23/17 121.6 kg (268 lb) 05/30/17 121.3 kg (267 lb 6.4 oz) 03/28/17 118.8 kg (262 lb) 03/22/17 118.9 kg (262 lb 1.6 oz) Patient is receiving ongoing education regarding dietary and physical modifications for weight loss. Patient is interested in the following treatment options for obesity: medical management. The patient was last seen in this clinic 05/28. Since that time the patient's weight has decreased 8 pounds. The patient's total weight change is -17 pounds. Review of Systems: The patient denies any chest pain, palpitations. Since her last visit there have been no problems with Anxiety / nervousness, Binge Eating, Depression, Diarrhea and Hair loss. States on April 13 she had all of her teeth pulled. DM: States she does not check her blood sugars often, but she and her say "they are okay" when they do check them. HEMOGLOBIN, A1C(%) Lucio Dt/Tm Resulted Value Status 7/18/17 3:31P 03/28/17 6.6* FINAL Depression/Anxiety: Well controlled on current medications. [...] as needed for Pain. 60 Tab 0 levothyroxine (LEVOXYL) 100 MCG Tablet Take 1 Tab by mouth daily. (at least 30 min prior to breakfast or other meds) 30 Tab 5 levothyroxine (LEVOXYL) 88 MCG Tablet Take 1 Tab by mouth daily. (at least 30 min prior to breakfast or other meds) 30 Tab 5 benzonatate (TESSALON PERLES) 100 MG Capsule take 1 capsule by mouth three times a day if needed for cough 30 Cap 1 albuterol-ipratropium (DUONEB) 2.5-0.5 MG/3ML nebulizer solution Use 1 vial in nebulizer 2 Vial 0 traZODone (DESYREL) 50 MG Tablet take 1 tablet by mouth at bedtime 30 Tab 5 azithromycin (ZITHROMAX Z-SYUAPA) 250 MG Tablet Take two tablets by mouth on first day, then 1 tablet daily until gone 6 Tab 0 citalopram (CELEXA) 40 MG Tablet Take 1 Tab by mouth daily. 30 Tab 5 MetFORMIN (GLUCOPHAGE) 1000 MG Tablet Take 1 Tab by mouth 2 times a day. With food. 60 Tab 5 busPIRone (BUSPAR) 10 MG Tablet 0 gabapentin (NEURONTIN) 300 MG Capsule One pill in am, one midday, two in pm, as directed, increase up to 2 capsules 3 times daily 180 Cap 5 atorvaSTATin (LIPITOR) 40 MG Tablet Take 1 Tab by mouth at bedtime. 90 Tab 1 Glucose Blood (ValuNetUCH VERIO) STRP Use up to four times a day as directed.DX:E11.9 100 Strip 11 Blood Glucose Monitoring Suppl (BizBrag VERIO) W/DEVICE KIT Use as directed. Use daily to check blood sugars DX:E11.9 1 Kit 0 Glucose Blood (ValuNetUCH ULTRA BLUE) STRP Use as directed 4 [...] a day. With food. 60 Tab 5 atenolol (TENORMIN) 25 MG Tablet Take 1 Tab by mouth at bedtime. 30 Tab 5 cyclobenzaprine (FLEXERIL) 10 MG Tablet Take 1 Tab by mouth at bedtime. 30 Tab 0 Vitamin D, Ergocalciferol, 00815 UNITS Capsule 1capsule every other week 8 Cap 6 omeprazole (PRILOSEC) 20 MG CPDR Take 1 Cap by mouth daily. 90 Cap 1 albuterol (PROVENTIL HFA) 108 (90 BASE) MCG/ACT inhaler Inhale 2 Puffs by mouth 4 times a day. 1 Inhaler 1 Etodolac 500 MG Tablet Take 1 Tab by mouth 2 times a day. 60 Tab 5 nystatin 446794 UNIT/GM cream Apply topically to affected area 2 times a day. To affacted area for two weeks. 15 g 2 Glucosamine-Chondroitin (GLUCOSAMINE CHONDR COMPLEX) 500-400 MG Capsule Take 1 Cap by mouth 3 timesa day. 1 Cap 0 nystatin (NYSTOP) powder Apply topically to affected area 3 times a day. Sprinkle over affected area. 1 Bottle 1 furosemide (LASIX) 20 MG Tablet One pill by mouth once a day, as needed for edema 30 Tab 5 Azelastine HCl (ASTELIN) 0.1 % nasal spray Administer 2 Sprays into each nostril 2 times a day. 1 Bottle 11 citalopram (CELEXA) 20 MG Tablet Take 1 Tab by mouth daily. 30 Tab 5 fluticasone (FLONASE) 50 MCG/ACT nasal spray Administer 2 Sprays into each nostril daily. 1 Inhaler5 FEXOFENADINE HCL 180 MG PO TABS One pill by mouth once a day as needed for allergies 30 Tab 11 OCEAN NASAL SPRAY 0.65 % NA [...] KORTNEY as directed 1 0 Water intake: sometimes, drinks about 2-3 large bottles of water per day Prescribed diet: 6329-5383 Low Fat CHO Modified Diet Current diet: --> Breakfast-- eggs -3, 2 slices of toast with butter and jelly; oatmeal --> Snack--club crackers - 1 sleeve --> Lunch-- lunch meat sandwich; tomato and almeida sandwich, tomato soup --> Snack--ice cream --> Dinner--chili; baked potato and veggie; fried chicken often with veggies --> Snack-- none or crackers or grapes --> Drinks-- flavored water, diet amaury jackie , milk 2% Food logs: No Type of exercise: limited due to immobility from CP Weight loss Pharmacotherapy: no There were no vitals taken for this visit. PHYSICAL EXAMINATION: General: Patient is in no [...] normal mood and affect Neuro Wheelchair bound Results for orders placed or performed in visit on 03/28/17 COMPR METAB PANEL Result Value Ref Range BUN 8 6 - 20 mg/dL CREATININE 0.8 0.5 - 1.0 mg/dL SODIUM 143 135 - 146 mmol/L POTASSIUM 4.3 3.5 - 5.1 mmol/L CHLORIDE 105 98 - 107 mmol/L CO2 25 22 - 32 mmol/L ANION GAP 13 7 - 15 mmol/L GLUCOSE 199 (H) 70 - 120 mg/dL ALBUMIN 4.0 3.8 - 5.0 g/dL AST 28 10 - 35 U/L ALKALINE PHOSPHATASE 125 0 - 153 U/L BILIRUBIN, TOTAL 0.3 0 - 1.2 mg/dL CALCIUM 9.5 8.4 - 10.2 mg/dL PROTEIN 7.3 6.0 - 8.3 g/dL ALT 26 10 - 35 U/L E GLOM FILT RATE >60.0 >60 HEMOGLOBIN A1C Result Value Ref Range HEMOGLOBIN, A1C 6.6 (H) 4.0 - 6.4 % EST AVG GLUCOSE 143 (H) <126 MG/DL CBC Result Value Ref Range WBC 5.80 4.00 - 10.80 K/uL RBC 3.87 3.85 - 5.15 M/uL HGB 12.8 12.0 - 15.3 g/dL HCT 38.4 36.0 - 45.2 % MCV 99.2 (H) 81.5 - 97.5 fL MCH 33.1 27.0 - 34.0 pg MCHC 33.3 32.0 - 36.0 g/dL RDW 13.7 11.5 - 15.5 % PLATELET COUNT 129 (L) 140 - 400 K/uL MPV 13.0 (H) 6.6 - 11.1 fL *Note: Due to a large number of results and/or encounters for the requested time period, some results have not been displayed. A complete set of results can be found in Results Review. Assessment: Morbid Obesity: The above meal plan [...] on fried foods. 5. Avoid sugary snacks DIABETES: Continue current medications. DYSLIPIDEMIA: Stable on the above prescribed meal plan and medication. Liver function stable. AST(U/L) Lucio Dt/Tm Resulted Value Status 03/28/17 3:31P 03/28/17 28 FINAL ALT(U/L) Lucio Dt/Tm Resulted Value Status 03/28/17 3:31P 03/28/17 26 FINAL GERD: The patient believes her reflux is [...] Continue following with GI. HYPOTHYROIDISM: TSH very low, has primary appt tomorrow THAD: in CPAP Has right sided kidney stone: drinking ice water, haven't yet The patient will return to the [facility] Management Clinic in 6 weeks. She was instructed to call in the meantime with any questions or concerns prior to her next clinic visit. Gadiel Pathak MD in this encounter Plan of Treatment Upcoming Encounters Date Type Specialty Care Team Description 07/19/2017 Office Visit Family Practice Nancy Matute MD [address] [place], [place] [id number] 07/25/2017 Office Visit [facility] Nancy Matute MD [address] [place] [address] [phone] 08/08/2017 Office Visit Gastroenterology Lyssa Stout CRNP [address] [place] [address] [phone] 08/25/2017 Office Visit Urology Kavya Ramirez MD [address] [place] [address] 09/26/2017 Office Visit Dermatology To Gee MD [address] [place] [address] [phone] 10/17/2017 Office Visit Gynecology Obstetrics Alberta Gould [facility]ominaC [address] [place] [address] [phone] 08/07/2018 Office Visit Sleep Disorders Lanette Fields CRNP [address] [place] [address] [phone] [place] Nurse Sleep Disorders [address] [place] [address] [phone] Health Maintenance Due Date Last Done Comments [...] HTN, goal below 140/90 Unspecified essential hypertension DDD (degenerative disc disea se), lumbar Degeneration of lumbar or lumbosacral intervertebral disc Dyslipidemia, goal LDL below 70 Other and unspecified hyperlipidemia THAD (obstructive sleep apnea ) Obstructive sleep apnea (adult) (pediatric) in this encounter Insurance Payer Benefit Plan / Group Subscriber ID Type Phone Address [facility] [id number] [facility] [id number] [facility] [id number] as of this encounter
--- OUTSIDE RECORDS SUMMARY | 2023-05-10 23:45 | External Medical Summary | Summary of Care ---
Author Name Unknown Organization [place] [address] Phone Care Team Providers Care Tour Sales Representative Name Role Phone Nancy Matute MD Primary Care Provider [phone] Encounter Details Date Type Department Care Team Description 07/19/2017 Scan Encounter Unspecified Department <No scans attached> [...] area. 1 Bottle 1 05/11/2016 Active nystatin 216676 UNIT/GM creamIndications:Cand idal vulvovaginitis Apply topically to [...] Inhaler 1 06/29/2016 Active Vitamin D, Ergocalciferol, 68160 UNITS CapsuleIndications:Vi tamin D deficiency 1capsule every [...] 5 01/06/2017 Active Blood Glucose Monitoring Suppl (TailsterTOUCH VERIO) W/DEVICE KITIndications:Type 2 diabetes mellitus with hemoglobin A1c goal of less than 7.0% (HCC) Use as directed. Use daily to check blood sugars DX:E11.9 1 Kit 0 01/17/2017 Active Glucose Blood (TailsterTOUCH ULTRA BLUE) STRPIndications:Type 2 diabetes mellitus with [...] less than 7.0% ([facility]) Take 1 Tab by mouth 2 [...] 50.0 to 59.9 in adult ([facility]) 06/12/2017 Overview: Per Obesity protocol #1 [...] Chronic rhinitis 03/27/2012 Cerebral palsy ([facility]) 01/24/2012 Obstructive sleep apnea 01/18/2011 Overview: [...] pain 08/19/2016 01/17/2017 Hepatic cirrhosis ([facility]) 08/19/2016 [...] pain 01/24/2012 01/17/2017 Genetic Sleep Disorder Research Other*[id number] 05/13/2011 04/07/2016 Lumbosacral spondylosis 12/27/2010 09/14/20 12 [...] Visit Gastroenterology [facility] [address] [facility] [address] [phone] 08/25/2017 Office Visit Urology Kavya Ramirez MD [address] [place] [address] 08/29/2017 Office Visit Gastroenterology Gadiel Pathka MD [address] [place] [address] 09/26/2017 Office Visit Dermatology To Gee MD [address] [place] [address] [phone] 10/17/2017 Office Visit Gynecology Obstetrics Alberta Gould PA-C [address] [place] [address] [phone] 11/21/2017 Office Visit Family Practice Nancy Matute MD [address] [facility] [address] [phone] 08/07/2018 Office Visit Sleep Disorders Lanette Fields CRNP [address] [place] [address] [phone] [place], Nurse Sleep Disorders [address] [place] [address] [phone] Health Maintenance Due Date Last Done Comments [...] Group Subscriber ID Type Phone Address [facility] [id number] AETNA AETNA [facility] [id number] [facility] [id number] as of this encounter
--- OUTSIDE RECORDS SUMMARY | 2023-05-10 23:45 | External Medical Summary | Summary of Care ---
Author Name Unknown Organization [place] [address] Phone Care Team Providers Care Kitchen Mechanic Name Role Phone Nancy Matute MD Primary Care Provider [phone] Reason for Visit * Reason Comments FORMS REQUEST UDS Encounter Details Date Type Department Care Team Description 07/24/2017 Telephone [place] [address] [place] [address] Nancy Matute MD [address] [place] [address] [phone] FORMS REQUEST (UDS) Allergies Active Allergy Reactions Severity Noted Date [...] area. 1 Bottle 1 05/11/2016 Active nystatin 075562 UNIT/GM creamIndications:Cand idal vulvovaginitis Apply topically to [...] Inhaler 1 06/29/2016 Active Vitamin D, Ergocalciferol, 88918 UNITS CapsuleIndications:Vi tamin D deficiency 1capsule every [...] 5 01/06/2017 Active Blood Glucose Monitoring Suppl ([employer] VERIO) W/DEVICE KITIndications:Type 2 diabetes mellitus with hemoglobin A1c goal of less than 7.0% (HCC) Use as directed. Use daily to check blood sugars DX:E11.9 1 Kit 0 01/17/2017 Active Glucose Blood (MECON AssociatesUCH ULTRA BLUE) STRPIndications:Type 2 diabetes mellitus with [...] pain 01/24/2012 01/17/2017 Genetic Sleep Disorder Research Other*[id number] 05/13/2011 04/07/2016 Lumbosacral spondylosis 12/27/2010 05/25/20 12 [...] Stout CRNP [address] [facility] [place] [address] [phone] 08/25/2017 Office Visit Urology Kavya Ramirez MD [address] [place] [address] 08/29/2017 Office Visit Gastroenterology Gadiel Pathak MD [address] [place] [address] 09/26/2017 Office Visit Dermatology To Gee MD [address] [facility] [place] [address] [phone] 10/17/2017 Office Visit Gynecology Obstetrics Alberta Gould [facility] [address] [facility] [address] [phone] 11/21/2017 Office Visit Family Practice Nancy Matute MD [address] [place] [address] [phone] 08/07/2018 Office Visit Sleep Disorders Lanette Fields CRNP [address] [facility] [place] [address] [phone] Nurse [place] Sleep Disorders [address] [facility] [place] [address] [phone] Health Maintenance Due Date Last Done Comments [...] ID Type Phone Address [facility] [id number] [employer] [facility] [facility] [id number] [facility] [id number] as of this encounter
--- OUTSIDE RECORDS SUMMARY | 2023-05-10 23:45 | External Medical Summary | Summary of Care ---
Author Name Unknown Organization [place] [address] Phone Care Team Providers Care Laboratory Monitor Name Role Phone Nancy Mattue MD Primary Care Provider [phone] Reason for Visit * Reason Comments HOSPITAL FOLLOW-UP Encounter Details Date Type Department Care Team Description 07/18/2017 Telephone Ancillary Department, [address] [address] Rosio Hunter RN HOSPITAL FOLLOW-UP Allergies Active Allergy Reactions [...] area. 1 Bottle 1 05/11/2016 Active nystatin 864575 UNIT/GM creamIndications:Ca ndidal vulvovaginitis Apply topically to [...] Inhaler 1 06/29/2016 Active Vitamin D, Ergocalciferol, 61009 UNITS CapsuleIndications: Vitamin D deficiency 1capsule every [...] 5 01/06/2017 Active Blood Glucose Monitoring Suppl (EverpayTOUCH VERIO) W/DEVICE KITIndications:Type 2 diabetes mellitus with hemoglobin A1c goal of less than 7.0% (HCC) Use as directed. Use daily to check blood sugars DX:E11.9 1 Kit 0 01/17/2017 Active Glucose Blood (EverpayTOUCH ULTRA BLUE) STRPIndications:Typ e 2 diabetes mellitus [...] for Pain. 60 Tab 0 07/17/2017 Active FEXOFENADINE HCL 180 MG PO TABSIndications:All [...] 6 Tab 0 05/01/2017 07/19/20 17 Discontinued as of this encounter Active Problems Problem Noted Date Debility 07/19/2017 Body mass index (BMI) of 50.0 to 59.9 in adult ([facility]) 06/12/2017 Overview: Per Obesity protocol #1 Chronic pain syndrome 01/17/2017 MEDICATION USE AGREEMENT 01/17/2017 Overview: 01/17/17 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 01/17/2017 Acquired hypothyroidism 12/12/2016 Depression with anxiety 08/19/2016 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 1 10/09/2015 Restrictive lung disease 12/10/2014 Allergic rhinitis 05/29/2014 Type 2 diabetes mellitus with hemoglobin A1c goal of less than 7.0% ([facility]) 09/26/2013 Overview: ICD-10 update of inactive term Vitamin D deficiency 09/26/2013 Lymphedema 03/11/2013 Intermittent asthma with reliever use up to twice per week 01/09/2013 Stasis dermatitis 05/07/2012 NG (nonalcoholic steatohepatitis) 04/12 Diverticulosis of colon 05/02/2012 HTN, goal below 140/90 03/27/2012 Chronic rhinitis 03/27/2012 Cerebral palsy ([facility]) 01/24/2012 Obstructive sleep apnea 01/18/2011 Overview: [...] pain 08/19/2016 01/17/2017 Hepatic cirrhosis ([facility]) 08/19/2016 03/28/20 17 Polyuria 08/09/2016 01/17/2017 Urinary frequency 08/09/2016 01/17/2017 Generalized OA 06/14/2016 03/28/2017 Body mass index (BMI) of 45.0-49.9 in adult ([facility] ) 12/09/2015 01/17/2017 Overview: bmi= 48.04 12/09/15 Need for shingles vaccine 12/09/20152015 Bilateral shoulder pain 08/25/2015 06/07/20 16 Bilateral shoulder pain 07/16/2015 06/07/20 16 Cerebral palsy ([facility]) 04/23/2015 03/28/2017 Candidal vulvovaginitis 02/12/2015 06/07/20 16 Obesity, morbid (more than 1 00 lbs over ideal weight or BMI > 40) ([facility]) 02/09/2015 03/28/2017 THAD (obstructive sleep apnea) [...] BMI > 40) ([facility]) 10/28/2013 01/17/2017 Overview: bmi= 53.93 10/28/13 [...] BMI > 40) ([facility]) 05/25/2012 01/17/2017 Overview: BMI= 55.27 05/25/12 [...] pain 01/24/2012 01/17/2017 Genetic Sleep Disorder Research Other*[id number] 05/13/2011 04/07/2016 Lumbosacral spondylosis 12/27/2010 05/25/20 12 [...] Stout CRNP [address] [facility] [place] [address] [phone] 08/25/2017 Office Visit Urology Kavya Ramirez MD [address] [place] [address] 08/29/2017 Office Visit Gastroenterology Gadiel Pathak MD [address] [place], [place] [address] 09/26/2017 Office Visit Dermatology To Gee MD [address] [place] [id number] 10/17/2017 Office Visit Gynecology Obstetrics Alberta Gould PA-C [address] [place] [place] [address] [phone] 11/21/2017 Office Visit Family Practice Nancy Matute MD [address] [place], [place] [address] 08/07/2018 Office Visit Sleep Disorders Lanette Fields CRNP [address] [place] [address] [phone] Nurse [facility] Sleep Disorders [address] [facility] [place] [address] Health Maintenance Due Date Last Done [...] / Group Subscriber ID Type Phone Address [facility] [id number] [employer] [facility] [id number] [facility] [id number] as of this encounter
--- OUTSIDE RECORDS SUMMARY | 2023-05-10 23:45 | External Medical Summary | Summary of Care ---
Author Name Unknown Organization [place] [address] Phone Care Team Providers Care Vitamin Manager Name Role Phone Nancy Matute MD Primary Care Provider [phone] Reason for Visit * Reason Comments ORDER REQUEST Leg wraps Encounter Details Date Type Department Care Team Description 07/21/2017 Telephone [address] [place] [address] Nancy Matute MD [address] [place] [address] [phone] ORDER REQUEST (Leg wraps) Allergies Active Allergy Reactions Severity Noted Date [...] area. 1 Bottle 1 05/11/2016 Active nystatin 235923 UNIT/GM creamIndications:Cand idal vulvovaginitis Apply topically to [...] Inhaler 1 06/29/2016 Active Vitamin D, Ergocalciferol, 03910 UNITS CapsuleIndications:Vi tamin D deficiency 1capsule every [...] 5 01/06/2017 Active Blood Glucose Monitoring Suppl (inMarket VERIO) W/DEVICE KITIndications:Type 2 diabetes mellitus with hemoglobin A1c goal of less than 7.0% (HCC) Use as directed. Use daily to check blood sugars DX:E11.9 1 Kit 0 01/17/2017 Active Glucose Blood (OSR Open Systems ResourcesTOUCH ULTRA BLUE) STRPIndications:Type 2 diabetes mellitus with [...] pain 01/24/2012 01/17/2017 Genetic Sleep Disorder Research Other*[id number] 05/13/2011 04/07/2016 Lumbosacral spondylosis 12/27/2010 05/25/20 12 Dyslipidemia, goal LDL below 130 06/01/2010 03/28/2012 Asthma with severity to be determined 03/04/2010 11/01/2011 Overview: Per Asthma Taxonomy ICD-10 update of inactive term Asthma in remission 03/04/2010 01/09/2013 Overview: Per Provider Protocol. Obesity, morbid (more than 1 00 lbs over ideal weight or BMI > 40) ([facility]) 12/08/2009 07/02/2014 Overview: Per Obesity Taxonomy [...] Lyssa Stout CRNP [address] [facility] [place] [address] [phone] 08/25/2017 Office Visit Urology Kavya Ramirez MD [address] [place] [address] 08/29/2017 Office Visit Gastroenterology Gadiel Pathak MD [address] [place] [address] 09/26/2017 Office Visit Dermatology To Gee MD 200 [facility] [address] [phone] 10/17/2017 Office Visit Gynecology Obstetrics Alberta Gould PA-C 132 [facility] [place] [address] [phone] 11/21/2017 Office Visit Family Practice Nancy Matute MD [address] [facility] [place] [address] [phone] 08/07/2018 Office Visit Sleep Disorders Lanette Fields CRNP 132 [facility] [place] [address] [phone] Nurse [facility] [address] [facility] [place] [address] [phone] Health Maintenance Due Date Last Done Comments [...] Subscriber ID Type Phone Address [facility] [id number] [facility] [facility] [id number] [facility] [id number] as of this encounter
--- OUTSIDE RECORDS SUMMARY | 2023-05-10 23:45 | External Medical Summary | Summary of Care ---
Author Name Unknown Organization [place] [address] Phone Care Team Providers Care Armature Connector Name Role Phone Nancy Matute MD Primary Care Provider [phone] Encounter Details Date Type Department Care Team Description 06/21/2017 Scan Encounter Sleep Disorders, [facility] 132 [facility] [place] [address] Lan[facility] Fields CR[facility] [address] <No scans attached> Allergies Active Allergy [...] area. 1 Bottle 1 05/11/2016 Active nystatin 881112 UNIT/GM creamIndications:Cand idal vulvovaginitis Apply topically to [...] Cap 1 08/23/2016 Active Vitamin D, Ergocalciferol, 68347 UNITS CapsuleIndications:Vi tamin D deficiency 1capsule every [...] 1 Kit 0 01/17/2017 Active Glucose Blood (Bootstrap [employer].TOUCH ULTRA BLUE) STRPIndications:Type 2 diabetes mellitus with [...] pain 01/24/2012 01/17/2017 Genetic Sleep Disorder Research Other*[id number] 05/13/2011 04/07/2016 Lumbosacral spondylosis 12/27/2010 05/25/20 12 [...] Family Practice Nancy Matute MD [address] [place] [address] [phone] 07/25/2017 Office Visit Family Practice Nancy Matute MD [address] [place] [address] [phone] 08/08/2017 Office Visit Gastroenterology Lyssa Stout CRNP 132 [facility] [place] [address] [phone] 08/25/2017 Office Visit Urology Kavya Ramirez MD [address] [facility] [place] [address] [phone] 08/29/2017 Office Visit Gastroenterology Gadiel Pathak MD [address] [place], [place] [address] 09/26/2017 Office Visit Dermatology To Gee MD 200 [place] [address] [phone] 10/17/2017 Office Visit Gynecology Obstetrics Alberta Gould PA-C 132 [place] [address] 08/07/2018 Office Visit Sleep Disorders Lanette Fields CRNP 132 [place] [address] [facility] Nurse Sleep Disorders 132 [place] [address] Health Maintenance Due Date Last Done [...] Subscriber ID Type Phone Address [facility] [id number] [employer] [facility] [id number] [facility] [id number] as of this encounter
--- OUTSIDE RECORDS SUMMARY | 2023-05-10 23:45 | External Medical Summary | Summary of Care ---
Author Name Unknown Organization [place] [address] Phone Care Team Providers Care Nuclear Officer Name Role Phone Nancy Matute MD Primary Care Provider [phone] Reason for Visit * Reason Comments ADVICE Encounter Details Date Type Department Care Team Description 07/18/2017 Telephone [address] [place] [address] Nancy Matute MD [address] [place] [address] [phone] ADVICE Allergies Active Allergy Reactions Severity Noted [...] area. 1 Bottle 1 05/11/2016 Active nystatin 440421 UNIT/GM creamIndications:Ca ndidal vulvovaginitis Apply topically to [...] Inhaler 1 06/29/2016 Active Vitamin D, Ergocalciferol, 07991 UNITS CapsuleIndications: Vitamin D deficiency 1capsule every [...] 5 01/06/2017 Active Blood Glucose Monitoring Suppl (ScootersUCH VERIO) W/DEVICE KITIndications:Type 2 diabetes mellitus with hemoglobin A1c goal of less than 7.0% (HCC) Use as directed. Use daily to check blood sugars DX:E11.9 1 Kit 0 01/17/2017 Active Glucose Blood (LC Style.comTOUCH ULTRA BLUE) STRPIndications:Typ e 2 diabetes mellitus [...] pain 01/24/2012 01/17/2017 Genetic Sleep Disorder Research Other*[id number] 05/13/2011 04/07/2016 Lumbosacral spondylosis 12/27/2010 05/25/20 12 [...] [facility] [place] [address] [phone] 08/25/2017 Office Visit Urology Kavya Ramirez MD [address] [place] [address] 08/29/2017 Office Visit Gastroenterology Gadiel Pathak MD [address] [place] [address] 09/26/2017 Office Visit Dermatology To Gee MD [address] [place] [address] [phone] 10/17/2017 Office Visit Gynecology Obstetrics Alberta Gould PA-C 132 [place] [address] [phone] 11/21/2017 Office Visit Family Practice Nancy Matute MD [address] [place] [address] [phone] 08/07/2018 Office Visit Sleep Disorders Lanette Fields CRNP 132 [facility] [place] [address] [phone] [facility] Nurse Sleep Disorders 132 [place] [address] [phone] Health Maintenance Due Date Last Done Comments [...] Group Subscriber ID Type Phone Address [facility] [id number] [employer] [facility] [facility] [id number] [facility] [id number] as of this encounter
--- OUTSIDE RECORDS SUMMARY | 2023-05-10 23:45 | External Medical Summary | Summary of Care ---
Author Name Unknown Organization [place] [address] Phone Care Team Providers Care Drum Attendant Name Role Phone Nancy Matute MD Primary Care Provider [phone] Reason for Referral * Evaluate & Treat - Unlimited Visits (Within 10 days (routine)) Status Reason Specialty Diagnoses / Procedures Referred By Contact Referred To Contact Pending Review Specialty Services Required Physical Therapy Diagnoses Cerebral palsy, unspecified type (HCC) Debility Lymphedema of both lower extremities Nancy Matute MD [address] [place] [address] * Evaluate & Treat - Unlimited Visits (Within 10 days (routine)) Status Reason Specialty Diagnoses / Procedures Referred By Contact Referred To Contact Pending Review Specialty Services Required Physical Therapy Diagnoses Cerebral palsy, unspecified type (HCC) Debility Lymphedema of both lower extremities Nancy Matute MD [address] [place] [address] Reason for Visit * Reason Comments HOSPITAL FOLLOW-UP HOSPITAL FOLLOW-UP Encounter Details Date Type Department Care Team Description 07/19/2017 Office Visit [facility] [address] [place] [address] Nancy Matute MD [address] [place], [place] 9580823 Atypical chest pain*;HTN, goal below 140/90;Type 2 diabetes mellitus with hemoglobin A1c goal of less than 7.0% (HCC);Cerebral palsy, unspecified type (HCC);Spinal stenosis of lumbar region without neurogenic claudication;Debility;Ly mphedema of both lower extremities;Edema;Stasis dermatitis;Allergic conjunctivitis of both eyes;Allergic rhinitis;Hospital discharge follow-up Allergies Active Allergy Reactions Severity [...] area. 1 Bottle 1 05/11/2016 Active nystatin 504962 UNIT/GM creamIndications:Ca ndidal vulvovaginitis Apply topically to [...] Inhaler 1 06/29/2016 Active Vitamin D, Ergocalciferol, 50344 UNITS CapsuleIndications: Vitamin D deficiency 1capsule every [...] 1 Kit 0 01/17/2017 Active Glucose Blood (SuddenValuesTOUCH ULTRA BLUE) STRPIndications:Typ e 2 diabetes mellitus [...] for allergies 30 Tab 11 07/19/2017 Active FEXOFENADINE HCL 180 MG PO TABSIndications:All [...] pain 01/24/2012 01/17/2017 Genetic Sleep Disorder Research Other*[id number] 05/13/2011 04/07/2016 Lumbosacral spondylosis 12/27/2010 05/25/20 12 [...] Vital Sign Reading Time Taken Blood Pressure 128/76 07/19/2017 10:07 AM EST Pulse 78 07/19/2017 10:07 AM EST Temperature 36.3 C (97.4 F) 07/19/2017 1 0:07 AM EST Respiratory Rate 18 07/19/2017 10:0 7 AM EST Oxygen Saturation - - Inhaled Oxygen Concentration - - Weight 117.5 kg (259 lb) 07/19/2017 10: 07 AM EST Height - - Body Mass Index 52.31 07/19/2017 10:07 AM EST in this encounter Instructions * Patient Instructions - Nancy Matute MD - 07/19/2017 10:44 AM EST Coping with Your Diagnosis of a Chronic Health Condition If you have a chronic health condition, you have a problem that may not go away over time. Heart disease, asthma, arthritis, and diabetes are just a few of the chronic conditions that exist. Right now, these conditions have no known cure. But you can take an active role in managing your health. Coping with Your Diagnosis If you've just learned about your health condition, you may be angry, depressed, or afraid. Or you might feel relieved just to know what's wrong. Even if you've known about your health problem for a while, adjusting to it can be hard. But learning about your condition can help you cope. Look for books at your local library. If you have access to a computer, check the Internet. Or contact a group that focuses on your specific problem. Accepting Change Change is hard for most people. Yet right now you may be facing many changes. What you eat or the way you work may change. Your moods, and even your symptoms, might vary from day to day. Although it isn't easy, learning to accept change can help you feel more in control. Taking Control Feeling you have control can make living with your condition easier. Discuss treatment options withyour health care provider. The more you know, the more active you can be in your care. Moving Forward You may wonder whether you will be able to do the things you've always done. That depends on your age, the condition you have, and your goals. To make the most of each day, try to build caring relationships, be active, and eat right. Also, do your best to keep a sense of humor. 7660-0074 [facility], [address] [place] [address], [place] [address]. All rights reserved. This information is not intended as a substitute for professional medical care. Always follow your healthcare professional's instructions. in this encounter Progress Notes * Nancy Matute MD - 07/19/2017 10:44 AM EST Formatting of this note may be different from the original. SUBJECTIVE: Shaina Bustos is a 62 year old female. Chief Complaint Patient presents with HOSPITAL FOLLOW-UP Recent Admission: Patient was recently admitted to [facility] on July 12, 2017. The date of discharge was July 14, 2017. Discharge report received and reviewed. HPI: The patient reports she had been briefly hospitalized previously for kidney stone. Is scheduled to see urology specialist this afternoon for follow-up. Was told in most recent hospital stay thatwas no stone in her ureter. Patient denies significant chest pressure/pain prior to most recent admission. Did not press on herchest to see if pain was reproducible. Had some improvement with aspirin and nitroglycerin in the emergency room. It was felt pain has resolved completely prior to discharge. Stress test was done which was negative. Patient reports they did consider referring her for inpatient therapy prior to discharge she declined. Was seen by physical therapist an outpatient recently and he recommended inpatient stay for 2 to 3 weeks to build up her strength and delay the need for retirement. Patient reports she was told that physical therapist would need information from occupational therapist in order to make sure insurance covers this. Physical therapist also recommended she get a referral for physical therapy for lymphedema therapy.Would be interested in having some recommend wrap legs. Has had some chronic problems with stasis dermatitis. No chest pain or shortness of breath today. Generally very weak. Less mobility than previously. Sheunderstands the importance of delaying admission to a retirement. No other complaints or concerns. 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 90 Tab 1 Glucose Blood (Fortify Software VERInsticator) STRP Use up to four times a day as directed.DX:E11.9 100 Strip 11 Blood Glucose Monitoring Suppl (Crystalplex) W/DEVICE KIT Use as directed. Use daily [...] bedtime. 30 Tab 5 Vitamin D, Ergocalciferol, 71240 UNITS Capsule 1capsule every other week 8 Cap 6 albuterol (PROVENTIL HFA) 108 (90 BASE) MCG/ACT inhaler Inhale 2 Puffs by mouth 4 times a day. 1 Inhaler 1 nystatin 628293 UNIT/GM cream Apply topically to affected area 2 times a day. To affacted area for two weeks. 15 g 2 Glucosamine-Chondroitin (GLUCOSAMINE CHONDR COMPLEX) 500-400 MG Capsule Take 1 Cap by mouth 3 times a day. 1 Cap 0 nystatin (NYSTOP) powder Apply topically to affected area 3 times a day. Sprinkle over affectedarea. 1 Bottle 1 BETAMETHASONE VALERATE 0.1 % EX CREA apply to affected area twice daily, as needed 30 g 1 ASPIRIN 81 MG PO TABS one tab by mouth daily 34 Tab 5 CENTRUM SILVER PO TABS 1 tab daily 1 Tab 0 NEBULIZER KORTNEY as directed 1 0 cyclobenzaprine (FLEXERIL) 10 MG Tablet Take 1 Tab by mouth at bedtime. 30 Tab 0 Azelastine HCl (ASTELIN) 0.1 % nasal spray Administer 2 Sprays into each nostril 2 times a day. 1 Bottle 11 fluticasone (FLONASE) 50 MCG/ACT nasal spray Administer 2 Sprays into each nostril daily. 1 Inhaler5 OCEAN NASAL SPRAY 0.65 % NA SOLN Two sprays in each nostril as needed for nasal dryness or congestion 1 Bottle 5 Current and discharge medications have been reconciled. Review of patient's allergies indicates: Allergen Reactions Pcn [Penicillins] Rash OBJECTIVE: BP 128/76 | Pulse 78 | Temp (Src) 97.4 (Tympanic) | Resp 18 | Wt 259 lbs (117.482kg) | BMI 52.31 kg/m | BSA 2.21 m Review Of Systems: Skin: As above Eyes: negative Ears/Nose/Throat: negative Respiratory: negative Cardiovascular: As above Gastrointestinal: pt. denies:, abdominal pain, nausea, heartburn, diarrhea Genitourinary: pt denies:, dysuria, frequency and hesitancy Musculoskeletal: As above Neurologic: As above Psychiatric: Stable Hematologic/Lymphatic/Immunologic: pt denies:, fever and chills Endocrine: pt denies:, cold intolerance and heat intolerance PHYSICAL EXAM: General appearance - large relatively in mobile white female, alert, no distress Skin - Skin color, texture, turgor normal. Some stasis dermatitis Head - Normocephalic., No masses, [...] no masses or hepatosplenomegaly Extremities - chronic edema of the feet and lower legs Neuro - chronic weakness related to her cerebral palsy and spinal stenosis ASSESSMENT/PLAN: (R07.89) Atypical chest pain (primary encounter diagnosis) Plan: DISCH MED RECON CUR MED LIS Discuss options. Patient is reassured that stress test was negative. Feels stress was the cause of chest pain. Will continue current medications. Refills are completed. After discussion referral for physical therapy for lymphedema therapy is done as well as referral for physical therapy to considerinpatient rehabilitation improve her mobility and strength and delay the need for retirement care. Patient understands the benefit with this. Agreeable. She reports she was told by physical therapythat the occupational therapy report is needed before her insurance usually cover the stay. Lymphedema therapy is discussed in detail. Referrals for physical therapy x2 are done. Questions are answered. Follow up with urology specialist for kidney stones this afternoon, as planned. Return to clinicfor complete exam in 4 months. With questions or problems. (I10) HTN, goal below 140/90 (E11.9) Type 2 diabetes mellitus with hemoglobin A1c goal of less than 7.0% (HCC) (G80.9) Cerebral palsy, unspecified type (HCC) Plan: PHYSICAL THERAPY REFERRAL OP, PHYSICAL THERAPY REFERRAL OP (M48.061) Spinal stenosis of lumbar region without neurogenic claudication (R53.81) Debility Plan: PHYSICAL THERAPY REFERRAL OP, PHYSICAL THERAPY REFERRAL OP (I89.0) Lymphedema of both lower extremities Plan: PHYSICAL THERAPY REFERRAL OP, PHYSICAL THERAPY REFERRAL OP (R60.9) Edema Plan: furosemide (LASIX) 20 MG Tablet (I87.2) Stasis dermatitis Plan: furosemide (LASIX) 20 MG Tablet (H10.13) Allergic conjunctivitis of both eyes Plan: fexofenadine (BERNARDA) 180 MG Tablet (J30.9) Allergic rhinitis Plan: fexofenadine (BERNARDA) 180 MG Tablet (Z09) Hospital discharge follow-up Plan: DISCH MED RECON CUR MED LIS Continue present medication(s): Follow up in 4 months. May cancel appointment scheduled for next week.. P Aubrey Matute MD in this encounter Plan of Treatment Upcoming Encounters Date Type Specialty Care Team Description 08/08/2017 Office Visit Gastroenterology Lyssa Stout CRNP 132 [facility] [place] [address] [phone] 08/25/2017 Office Visit Urology Kavya Ramirez MD [address] [place] [address] 08/29/2017 Office Visit Gastroenterology Gadiel Pathak MD [address] [place] [address] 09/26/2017 Office Visit Dermatology To Gee MD [address] [place] [address] [phone] 10/17/2017 Office Visit Gynecology Obstetrics Alberta Gould PA-C 132 [place] [address] [phone] 11/21/2017 Office Visit Family Practice Nancy Matute MD [address] [facility] [address] [phone] 08/07/2018 Office Visit Sleep Disorders Lanette Fields CRNP 132 [facility] [place] [address] [phone] Nurse Kentrell Sleep Disorders 132 [facility] [place] [address] [phone] Scheduled Referrals Name Priority Associated Diagnoses Order S chedule PHYSICAL THERAPY REFERRAL OP Within 10 days (routine) Cerebral palsy, unspecified type (HCC) Debility Lymphedema of both lower extremities Ordered: 07/19/2017 PHYSICAL THERAPY REFERRAL OP Within 10 days (routine) Cerebral palsy, unspecified type (HCC) Debility Lymphedema of both lower extremities Ordered: 07/19/2017 Health Maintenance Due Date Last Done Comments [...] fileas of this encounter Visit Diagnoses Diagnosis Atypical chest pain - Primar y Other chest pain HTN, goal below 140/90 Unspecified essential hypertension Type 2 diabetes mellitus wit h hemoglobin A1c goal of less than 7.0% (HCC) Cerebral palsy, unspecified type (HCC) Spinal stenosis of lumbar re gion without neurogenic claudication Spinal stenosis, lumbar region, without neurogenic claudication Debility Debility, unspecified Lymphedema of both lower ext remities Edema Stasis dermatitis Varicose veins of lower extremities with inflammation Allergic conjunctivitis of b oth eyes Other chronic allergic conjunctivitis Allergic rhinitis Allergic rhinitis, cause unspecified Hospital discharge follow-up Other follow-up examination in this encounter Insurance Payer Benefit Plan / Group Subscriber ID Type Phone Address [facility] [id number] [employer] [id number] [facility] [id number] as of this encounter"
--- OUTSIDE RECORDS SUMMARY | 2023-05-10 23:45 | External Medical Summary | Summary of Care ---
Author Name Unknown Organization [place] [address] Phone Care Team Providers Care Supervisor Cab Name Role Phone Nancy Matute MD Primary Care Provider [phone] Reason for Visit * Reason Comments ADVICE Encounter Details Date Type Department Care Team Description 07/18/2017 Telephone [address] [place] [address] Nancy Matute MD [address] [place] [address] [phone] ADVICE Allergies Active Allergy Reactions Severity Noted [...] area. 1 Bottle 1 05/11/2016 Active nystatin 435863 UNIT/GM creamIndications:Ca ndidal vulvovaginitis Apply topically to [...] Inhaler 1 06/29/2016 Active Vitamin D, Ergocalciferol, 42237 UNITS CapsuleIndications: Vitamin D deficiency 1capsule every [...] 5 01/06/2017 Active Blood Glucose Monitoring Suppl (WokupUCH VERIO) W/DEVICE KITIndications:Type 2 diabetes mellitus with hemoglobin A1c goal of less than 7.0% (HCC) Use as directed. Use daily to check blood sugars DX:E11.9 1 Kit 0 01/17/2017 Active Glucose Blood (Vino VoloTOUCH ULTRA BLUE) STRPIndications:Typ e 2 diabetes mellitus [...] pain 01/24/2012 01/17/2017 Genetic Sleep Disorder Research Other*[id number] 05/13/2011 04/07/2016 Lumbosacral spondylosis 12/27/2010 05/25/20 12 [...] 132 [facility] [place] [address] [phone] 08/25/2017 Office Visit Urology Kavya Ramirez MD [address] [place] [address] 08/29/2017 Office Visit Gastroenterology Gadiel Pathak MD [address] [place] [address] 09/26/2017 Office Visit Dermatology To Gee MD [address] [place] [address] [phone] 10/17/2017 Office Visit Gynecology Obstetrics Alberta Gould PA-C 132 [place] [address] [phone] 11/21/2017 Office Visit Family Practice Nancy Matute MD [address] [place] [address] [phone] 08/07/2018 Office Visit Sleep Disorders Lanette Fields CRNP 132 [place] [address] [phone] [facility] Nurse Sleep Disorders [address] [place] [address] [phone] Health Maintenance Due Date Last Done Comments [...] Type Phone Address [facility] [id number] [employer] [id number] [facility] [id number] as of this encounter
--- OUTSIDE RECORDS SUMMARY | 2023-05-10 23:46 | External Medical Summary ---
Author Name Unknown Address [facility] [place] [address] Phone Organization K01:[place] [address] [address] [facility] [address] Laboratory Report Ordering Provider Test Date Status ALEJANDRA Cruz MD 09/27/2016 13:23:00 Final Obs # Observation Date Value Abnormality Reference Status Performing Location 0 TSH 09/28/2016 08:45 0.01 Below low normal 0.27-4.2 Final [place] [address] [address] [facility] [address] 1 T4, Free 09/27/2016 23:23 2.00 Above high normal 0.9-1.7 Final
--- OUTSIDE RECORDS SUMMARY | 2023-05-10 23:46 | External Medical Summary ---
Author Name Unknown Address Unknown Organization : Laboratory Report Ordering Provider Test Date Status ALEJANDRA Cruz MD 05/05/2016 10:19:00 Final Obs # Observation Date Value Abnormality Reference Status Performing Location 0 Fasting status - Reported 05/05/2016 10:24 12 Final 1 Triglyceride 05/05/2016 14:04 136 <200 Final
--- OUTSIDE RECORDS SUMMARY | 2023-05-10 23:46 | External Medical Summary ---
Author Name Unknown Address [address] [place] [phone] Phone Organization K01:[facility] [address] [facility] [address] Laboratory Report Ordering Provider Test Date Status ALEJANDRA Cruz MD 05/05/2016 10:19:00 Final Obs # Observation Date Value Abnormality Reference Status Performing Location 0 BUN 05/05/2016 14:04 15 6-20 Final [facility] [address] [facility] [address] 1 Creatinine 05/05/2016 14:04 0.8 0.5-1.0 Final
--- OUTSIDE RECORDS SUMMARY | 2023-05-10 23:46 | External Medical Summary ---
Author Name Unknown Address [facility] [place] [address] Phone Organization K01:[facility] [address] [place] [address] Laboratory Report Ordering Provider Test Date Status ALEJANDRA Cruz 03/28/2017 15:31:00 Final Observation Date Value Abnormality Reference Status BUN 03/28/2017 22:45 8 6-20 Fin al Creatinine 03/28/2017 22:45 0.8 0.5-1.0 Fi nal Performing Location [facility] [address] [place] [id number]
--- OUTSIDE RECORDS SUMMARY | 2023-05-10 23:46 | External Medical Summary ---
Author Name Unknown Address Unknown Organization : Laboratory Report Ordering Provider Test Date Status SANDRAJANE DO [id number] Final Obs # Observation Date Value Abnormality Reference Status Performing Location 0 specimen [id number] BLOOD Final 1 Special requests [id number] HAND RIGHT Final 2 result [id number] NO GROWTH Final 3 report status [id number] 6 FINAL Final
--- OUTSIDE RECORDS SUMMARY | 2023-05-10 23:46 | External Medical Summary ---
Author Name Unknown Address [facility] N [place] [phone] Phone Organization K01:[place] [address] [address] [place] [id number] Laboratory Report Ordering Provider Test Date Status STACY DEL TORO DO 08/23/2016 15:40:00 Final Obs # Observation Date Value Abnormality Reference Status Performing Location 0 Actin smooth muscle Ab [Presence] in Serum by Immunoassay 08/24/2016 12:16 15.1 <20 Final [place] [address] [address] [facility] [address]
--- OUTSIDE RECORDS SUMMARY | 2023-05-10 23:46 | External Medical Summary ---
Author Name Unknown Address [address] [place] [phone] Phone Organization K01:[facility] 100 [address] [facility] [address] Laboratory Report Ordering Provider Test Date Status ALTAGRACIASTACY BRADY 08/23/2016 15:40:00 Final Obs # Observation Date Value Abnormality Reference Status Performing Location 0 Hep B Core IgM 6 23:05 NEGATIVE NEG Final [facility] 100 [address] [facility] [address] 1 Hep A IgM 6 23:05 NEGATIVE NEG Final 2 Hep B surface Ag 6 23:05 NEGATIVE NEG Final 3 Hep C Ab 6 23:05 NEGATIVE NEG Final
--- OUTSIDE RECORDS SUMMARY | 2023-05-10 23:46 | External Medical Summary ---
Author Name Unknown Address [facility] N [facility] [place] [facility]22 Phone Organization K01:[place] [address] [address] [place] [phone] Laboratory Report Ordering Provider Test Date Status PROBERTS 02/03/2017 09:58:00 Final Observation Date Value Abnormality Reference Status Albumin, Urine 02/03/2017 14:30 <1.20 Final Creatinine [Moles/volume] in Urine 02/03/2017 14:30 81 Final Microalbumin / Creatinine Ratio 02/03/2017 14:30 <15 <30 Final Performing Location [facility] 100 [facility] [address]
--- OUTSIDE RECORDS SUMMARY | 2023-05-10 23:46 | External Medical Summary ---
Author Name Unknown Address [address] [place] [phone] Phone Organization K01:[facility] 100 [address] [facility] [address] Laboratory Report Ordering Provider Test Date Status STACY DEL TORO DO 08/23/2016 15:40:00 Final Obs # Observation Date Value Abnormality Reference Status Performing Location 0 BHUPINDER, DEEPTHI Screen 6 12:12 NEGATIVE Final [facility] 100 [address] [facility] [address]
--- OUTSIDE RECORDS SUMMARY | 2023-05-10 23:46 | External Medical Summary ---
Author Name Unknown Address [facility] [place] [address] Phone Organization K01:[place] [address] [address] [place] [id number] Laboratory Report Ordering Provider Test Date Status SAPNA WOODS 12/12/2016 15:24:00 Final Observation Date Value Abnormality Reference Status 25-OH Vitamin D total 12/12/2016 23:32 28 > 19 Final Performing Location [address] [address]
--- OUTSIDE RECORDS SUMMARY | 2023-05-10 23:46 | External Medical Summary ---
Author Name Unknown Address [address] [place] [address] Phone Organization K01:[facility] [address] [place] [id number] Laboratory Report Ordering Provider Test Date Status ALEJANDRA Cruz 02/01/2017 11:19:00 Final Observation Date Value Abnormality Reference Status LDL, (direct) 02/01/2017 22:19 101 0-129 Final Performing Location [facility] [address] [place] [id number]
--- OUTSIDE RECORDS SUMMARY | 2023-05-10 23:46 | External Medical Summary ---
Author Name Unknown Address [facility] [place] [address] Phone Organization K01:[place] [address] Laboratory Report Ordering Provider Test Date Status SAPNA WOODS 02/01/2017 11:19:00 Final Observation Date Value Abnormality Reference Status TSH 02/01/2017 22:28 0.01 Below low normal 0.27-4 .2 Final T4, Free 02/01/2017 22:55 1.93 Above high normal 0.9-1 .7 Final Performing Location [place] [address]
--- OUTSIDE RECORDS SUMMARY | 2023-05-10 23:46 | External Medical Summary ---
Author Name Unknown Address [facility] [place] [address] Phone Organization K01:[facility] [address] [place] [address] Laboratory Report Ordering Provider Test Date Status JOSELUIS COVINGTONR 05/30/2017 15:59:00 Final Observation Date Value Abnormality Reference Status BUN 05/30/2017 22:12 11 6-20 Fin al Creatinine 05/30/2017 22:12 0.7 0.5-1.0 Fi nal Performing Location [facility] 100 [place] [id number]
--- OUTSIDE RECORDS SUMMARY | 2023-05-10 23:46 | External Medical Summary ---
Author Name Unknown Address [address] [facility] Phone Organization K01:[facility] 100 [address] [facility] [place] [address] Laboratory Report Ordering Provider Test Date Status ALEJANDRA Cruz 03/28/2017 15:31:00 Final Observation Date Value Abnormality Reference Status HbA1C 03/28/2017 22:46 6.6 Above high normal 4.0-6 .4 Final Performing Location [facility] 100 [address] [facility] [address]
--- OUTSIDE RECORDS SUMMARY | 2023-05-10 23:46 | External Medical Summary ---
Author Name Unknown Address [facility] [place] [address] Phone Organization K01:[place] [address] Laboratory Report Ordering Provider Test Date Status KRISTOFER COVINGTON 05/30/2017 15:59:00 Final Observation Date Value Abnormality Reference Status Parathyrin.intact [Mass/volu me] in Serum or Plasma 05/30/2017 22:12 23 15-65 Final Performing Location [address] [address]
--- OUTSIDE RECORDS SUMMARY | 2023-05-10 23:46 | External Medical Summary ---
Author Name Unknown Address [address] [place] [address] Phone Organization K01:[facility] [address] [place] [id number] Laboratory Report Ordering Provider Test Date Status STACY DEL TORO DO 09/02/2016 16:16:00 Final Obs # Observation Date Value Abnormality Reference Status Performing Location 0 Source 09/02/2016 21:55 STOOL Final [facility] [place] [address] [facility] [address]
--- OUTSIDE RECORDS SUMMARY | 2023-05-10 23:46 | External Medical Summary ---
Author Name Unknown Address [address] [place] [phone] Phone Organization K01:[facility] 100 [address] [facility] [address] Laboratory Report Ordering Provider Test Date Status ALEJANDRA Cruz MD 05/05/2016 10:19:00 Final Obs # Observation Date Value Abnormality Reference Status Performing Location 0 TSH 05/05/2016 14:31 0.16 Below low normal 0.27-4.2 Final [facility] 100 [address] [facility] [address]
--- OUTSIDE RECORDS SUMMARY | 2023-05-10 23:46 | External Medical Summary ---
Author Name Unknown Address [address] [place] [address] ) Organization K03:[facility] [address] [place] [address] Laboratory Report Ordering Provider Test Date Status KRISTOFER COVINGTON 05/30/2017 15:59:00 Final Observation Date Value Abnormality Reference Status Zinc, level 06/01/2017 22:01 78 60-130 F inal Performing Location [facility] [address] [place], [place] [address]
--- OUTSIDE RECORDS SUMMARY | 2023-05-10 23:46 | External Medical Summary ---
Author Name Unknown Address [address] [place] [phone] Phone Organization K01:[facility] [address] [facility] [address] Laboratory Report Ordering Provider Test Date Status ALEJANDRA Cruz MD 05/05/2016 10:19:00 Final Obs # Observation Date Value Abnormality Reference Status Performing Location 0 HbA1C 05/05/2016 14:07 5.6 4.0-6.4 Final [facility] [place] [address] [facility] [address]
--- OUTSIDE RECORDS SUMMARY | 2023-05-10 23:46 | External Medical Summary ---
Author Name Unknown Address [facility] [place] [address] Phone Organization K01:[place] [phone] Laboratory Report Ordering Provider Test Date Status KRISTOFER COVINGTON 05/30/2017 15:59:00 Final Observation Date Value Abnormality Reference Status 25-OH Vitamin D total 05/31/2017 00:34 33 > 19 Final Performing Location [address] [address]
--- OUTSIDE RECORDS SUMMARY | 2023-05-10 23:46 | External Medical Summary ---
Author Name Unknown Address [facility] N [facility] [place] [facility] Phone Organization K01:[facility] 100 [address] [facility] [place] [address] Laboratory Report Ordering Provider Test Date Status ALEJANDRA Cruz 02/01/2017 11:19:00 Final Observation Date Value Abnormality Reference Status BUN 02/01/2017 22:19 12 6-20 Fin al Creatinine 02/01/2017 22:19 0.8 0.5-1.0 Fi nal Performing Location [facility] 100 [facility] [address]
--- OUTSIDE RECORDS SUMMARY | 2023-05-10 23:46 | External Medical Summary ---
Author Name Unknown Address [address] [place] [phone] Phone Organization K01:[employer] 100 [address] [facility] [address] Laboratory Report Ordering Provider Test Date Status STACY DEL TORO DO 08/23/2016 15:40:00 Final Obs # Observation Date Value Abnormality Reference Status Performing Location 0 Ferritin 08/23/2016 23:14 149.4 13-150 Final [facility] [place] [address] [facility] [address]
--- OUTSIDE RECORDS SUMMARY | 2023-05-10 23:46 | External Medical Summary ---
Author Name Unknown Address 100 N [facility] [place] [address] Phone Organization K01:[facility] 100 [facility] [place] [address] Laboratory Report Ordering Provider Test Date Status PALEJANDRA 03/28/2017 15:31:00 Final Observation Date Value Abnormality Reference Status WBC, Total 03/28/2017 22:39 5.80 4.00-10.80 F inal RBC 03/28/2017 22:39 3.87 3.85-5.15 Fin al Hemoglobin 03/28/2017 22:39 12.8 12.0-15.3 Fi nal HCT 03/28/2017 22:39 38.4 36.0-45.2 Fin al MCV 03/28/2017 22:39 99.2 Above high normal 81.5- 97.5 Final MCH 03/28/2017 22:39 33.1 27.0-34.0 Fin al MCHC 03/28/2017 22:39 33.3 32.0-36.0 Fin al RDW 03/28/2017 22:39 13.7 11.5-15.5 Fin al Platelets 03/28/2017 22:39 129 Below low normal 140-40 0 Final MPV 03/28/2017 22:39 13.0 Above high normal 6.6-1 1.1 Final Performing Location [facility] 100 [address] [facility] [place] [address]
--- OUTSIDE RECORDS SUMMARY | 2023-05-10 23:46 | External Medical Summary ---
Author Name Unknown Address [address] [place] [address] Phone Organization K0G:[facility] [address] [place] [address] Laboratory Report Ordering Provider Test Date Status STACY DEL TORO DO 08/23/2016 15:40:00 Final Obs # Observation Date Value Abnormality Reference Status Performing Location 0 WBC, Total 6 16:16 4.46 4.00-10.80 Final [facility] [address] [place] [address] 1 RBC 6 16:16 4.06 3.85-5.15 Final 2 Hemoglobin 6 16:16 13.3 12.0-15.3 Final 3 HCT 6 16:16 39.1 36.0-45.2 Final 4 MCV 6 16:16 96.3 81.5-97.5 Final 5 MCH 6 16:16 32.8 27.0-34.0 Final 6 MCHC 6 16:16 34.0 32.0-36.0 Final 7 RDW 6 16:16 12.7 11.5-15.5 Final 8 Platelets 6 16:16 115 Below low normal 140-400 Final 9 MPV 6 16:16 11.8 Above high normal 6.6-11.1 Final 10 NEUT 6 16:16 66.2 40-75 Final 11 Lymphs % 6 16:16 19.3 18-42 Final 12 Monos 6 16:16 7.8 1-11 Final 13 Eosinophils 6 16:16 6.3 Above high normal 0-6 Final 14 Basos 6 16:16 0.4 0-2 Final 15 ANEUT 6 16:16 2.95 1.8-7.7 Final 16 Lymphs, absolute 6 16:16 0.86 Below low normal 1.0-4.8 Final 17 Monos, Abs 6 16:16 0.35 0.0-1.1 Final 18 Eos, Abs 6 16:16 0.28 0.0-0.7 Final 19 Basos, Abs 6 16:16 0.02 0.0-0.2 Final
--- OUTSIDE RECORDS SUMMARY | 2023-05-10 23:46 | External Medical Summary ---
Author Name Unknown Address [facility] [place] [address] Phone Organization K01:[place] [id number] Laboratory Report Ordering Provider Test Date Status FATOU WOODSJOEY 12/12/2016 15:24:00 Final Observation Date Value Abnormality Reference Status TSH 12/12/2016 23:32 0.01 Below low normal 0.27-4 .2 Final T4, Free 12/12/2016 23:56 2.02 Above high normal 0.9-1 .7 Final Performing Location [place] [id number]
--- OUTSIDE RECORDS SUMMARY | 2023-05-10 23:46 | External Medical Summary ---
Author Name Unknown Address 100 N [facility] [place] [facility] Phone Organization K01:[facility] 100 N [facility] [place] [address] Laboratory Report Ordering Provider Test Date Status ALEJANDRA Cruz 02/01/2017 11:19:00 Final Observation Date Value Abnormality Reference Status HbA1C 02/01/2017 22:29 6.9 Above high normal 4.0-6 .4 Final Performing Location [facility] 100 N [facility] [address]
--- OUTSIDE RECORDS SUMMARY | 2023-05-10 23:46 | External Medical Summary ---
Author Name Unknown Address [facility] [place] [address] Phone Organization K01:[place] [address] [address] [place] [id number] Laboratory Report Ordering Provider Test Date Status STACY DEL TORO DO 08/23/2016 15:40:00 Final Obs # Observation Date Value Abnormality Reference Status Performing Location 0 Mitochondria M2 Ab [Units/volume] in Serum 08/24/2016 12:16 3.6 <[address] [address]
--- OUTSIDE RECORDS SUMMARY | 2023-05-10 23:46 | External Medical Summary ---
Author Name Unknown Address [facility] N [place] [phone] Phone Organization K01:[facility] [address] [place] [id number] Laboratory Report Ordering Provider Test Date Status STACY DEL TORO DO 08/23/2016 15:40:00 Final Obs # Observation Date Value Abnormality Reference Status Performing Location 0 Hep A, IgG and/or IgM 6 14:39 NEGATIVE NEG Final [facility] 100 N [facility] [address]
--- OUTSIDE RECORDS SUMMARY | 2023-05-10 23:46 | External Medical Summary ---
Author Name Unknown Address [address] [place] [address] Phone Organization K01:[facility] 100 [address] [facility] [address] Laboratory Report Ordering Provider Test Date Status STACY DEL TORO DO 08/23/2016 15:40:00 Final Obs # Observation Date Value Abnormality Reference Status Performing Location 0 Albumin 6 23:48 4.6 3.8-5.0 Final [facility] 100 [address] [facility] [address] 1 AST (Aspartate aminotransferase ) 6 23:48 42 Above high normal 10-35 Final
--- OUTSIDE RECORDS SUMMARY | 2023-05-10 23:46 | External Medical Summary ---
Author Name Unknown Address Unknown Organization : Laboratory Report Ordering Provider Test Date Status ALEJANDRA Cruz MD 08/09/2016 15:21:00 Final Obs # Observation Date Value Abnormality Reference Status Performing Location 0 Source 6 15:21 CLEAN CATCH URINE Final 1 Bacteria identified in Unspecified specimen by Culture 6 14:25 LESS THAN 10,000 COLONIES/M L MIXED MAYRA Final 2 6 14:25 08/10/2016 FINAL Final
--- OUTSIDE RECORDS SUMMARY | 2023-05-10 23:46 | External Medical Summary ---
Author Name Unknown Address [address] [place] [address] Phone Organization K01:[facility] 100 [address] [facility] [address] Laboratory Report Ordering Provider Test Date Status STACY DEL TORO 08/23/2016 15:40:00 Final Obs # Observation Date Value Abnormality Reference Status Performing Location 0 Iron 22:51 158 Above high normal 33-151 Final [facility] 100 [address] [facility] [address] 1 Iron-binding capacity 22:51 298 250-425 Final 2 Transferrin Sat % 22:51 53 15-55 Final
--- OUTSIDE RECORDS SUMMARY | 2023-05-10 23:46 | External Medical Summary ---
Author Name Unknown Address [address] [place] [address] ) Organization K03:[facility] [address] [place] [address] Laboratory Report Ordering Provider Test Date Status STACY DEL TORO DO 08/23/2016 15:40:00 Final Obs # Observation Date Value Abnormality Reference Status Performing Location 0 Alpha-1 antitrypsin 08/25/2016 19:19 179 83-199 Final [facility] [address] [place], [place] [address]
--- OUTSIDE RECORDS SUMMARY | 2023-05-10 23:47 | External Medical Summary ---
Author Name Unknown Organization [id number] Laboratory Report Ordering Provider Test Date Status Nancy ROBERTS MD 12/09/2014 10:25:00-0400 Final Obs # Observation Date Value ABNL Reference Status Pe rforming Location 1 hours fasting 12/09/2014 10:27-0400 12 hours Final 2 Triglyceride 12/09/2014 22:26-0400 112 <200 mg/dL Final TRIGLYCERIDE REFERENCE RANGES (mg/dL) <150 NORMAL 150-199 BORDERLINE HIGH 200-499 HIGH >499 VERY HIGH TOTAL CHOLESTEROL REFERENCE RANGES(mg/dL) <200 DESIRABLE 200-239 BORDERLINE HIGH >239 HIGH HDL CHOLESTEROL REFERENCE RANGES(mg/dL) <40 LOW(UNDESIRABLE) >59 HIGH(DESIRABLE) LDL CHOLESTEROL REFERENCE RANGES(mg/dL) <100 OPTIMAL GOAL FOR HIGH RISK PATIENTS 100-129 NEAR OR ABOVE NORMAL 130-159 BORDERLINE HIGH 160-189 HIGH >189 VERY HIGH
--- OUTSIDE RECORDS SUMMARY | 2023-05-10 23:47 | External Medical Summary ---
Author Name Unknown Organization K01[facility] [address] [place] [address] Laboratory Report Ordering Provider Test Date Status Nancy ROBERTS MD 02/27/2014 09:21:00-0400 Final Obs # Observation Date Value ABNL Reference Status Pe rforming Location 1 25OH VITAMIN D TOTAL 02/27/2014 14:29-0400 39.7 30.0-100.0 ng/mL Final Deficient: <20.0 ng/mL Insufficient: 20.0-29.9 ng/ml Sufficient: 30.0-100.0 ng/ml High: >100.0 ng/ml Refer to [facility]osis for Practitioners Best Practice Guidelines for therapeutic recommendations.
--- OUTSIDE RECORDS SUMMARY | 2023-05-10 23:47 | External Medical Summary ---
Author Name Unknown Address [address] [place] [phone] Phone Organization K01:[facility] 100 [address] [facility] [address] Laboratory Report Ordering Provider Test Date Status PALEJANDRA MD [id number] Final Obs # Observation Date Value Abnormality Reference Status Performing Location 0 TSH [id number] 14.86 Above high normal 0.27-4.2 Final [facility] 100 [address] [facility] [address]
--- OUTSIDE RECORDS SUMMARY | 2023-05-10 23:47 | External Medical Summary ---
Author Name Unknown Organization K01:[facility], 100 [address] [facility] [address] Laboratory Report Ordering Provider Test Date Status Nancy ROBERTS MD 02/27/2014 09:21:00-0400 Final Obs # Observation Date Value ABNL Reference Status Pe rforming Location 1 HbA1C 02/27/2014 15:02-0400 5.9 3.4-6.4 % Final 2 Glucose, estimated average 02/27/2014 15:020400 123 <126 MG/DL Final
--- OUTSIDE RECORDS SUMMARY | 2023-05-10 23:47 | External Medical Summary ---
Author Name Unknown Organization K01:[facility], [address] [place] 3354[address] Laboratory Report Ordering Provider Test Date Status Nancy ROBERTS MD 10/20/2014 09:26:00-0500 Final Obs # Observation Date Value ABNL Reference Status Pe rforming Location 1 BUN 10/20/2014 14:04-0500 12 6-20 mg/dL Final 2 Creatinine 10/20/2014 14:04-0500 0.8 0.5-1.1 mg/dL Final GFR should be used to assess renal function. Plasma/Serum creatinine may not be able to properly reflect renal function in some cases. If patient is , multiply estimated GFR by 1.159.
--- OUTSIDE RECORDS SUMMARY | 2023-05-10 23:47 | External Medical Summary ---
Author Name Unknown Organization K01:[facility], [address] [place] [address] Laboratory Report Ordering Provider Test Date Status Nancy ROBERTS MD 10/20/2014 09:26:00-0500 Final Obs # Observation Date Value ABNL Reference Status Pe rforming Location 1 TSH 10/20/2014 14:46-0500 25.49 H 0.27-4.2 uIU/mL Final 2 FREE T4 REFLEXIVE 10/20/2014 14:46-0500 0.815 0.7-1.7 ng/dL Final
--- OUTSIDE RECORDS SUMMARY | 2023-05-10 23:47 | External Medical Summary ---
Author Name Unknown Address [address] [place] [address] Phone Organization K01:[facility] 100 [address] [facility] [address] Laboratory Report Ordering Provider Test Date Status PALEJANDRA MD [id number] Final Obs # Observation Date Value Abnormality Reference Status Performing Location 0 Albumin, Urine [id number] 4.51 Mar[facility] 100 [address] [facility] [address] 1 Creatinine, Urine [id number] 168 F [facility] 100 [address] [facility] [address] 2 Microalbumin / Creatinine Ratio [id number] 27 <30 Final [facility] 100 [address] [facility] [address]
--- OUTSIDE RECORDS SUMMARY | 2023-05-10 23:47 | External Medical Summary ---
Author Name Unknown Organization K01:[facility], 100 [address] [facility] [address] Laboratory Report Ordering Provider Test Date Status Nancy ROBERTS MD 02/27/2014 09:21:00-0400 Final Obs # Observation Date Value ABNL Reference Status Pe rforming Location 1 CK 02/27/2014 14:20-0400 101 34-174 U/L Final
--- OUTSIDE RECORDS SUMMARY | 2023-05-10 23:47 | External Medical Summary ---
Author Name Unknown Address Unknown Organization : Laboratory Report Ordering Provider Test Date Status RENATO FLORESCRYSTALYASH [id number] Final Obs # Observation Date Value Abnormality Reference Status Performing Location 0 specimen [id number] BLOOD Final 1 Special requests [id number] HAND LEFT Final 2 result [id number] NO GROWTH Final 3 report status [id number] 6 FINAL Final
--- OUTSIDE RECORDS SUMMARY | 2023-05-10 23:47 | External Medical Summary ---
Author Name Unknown Address [address] [id number] Phone Organization K01:[facility] [address] [id number] Laboratory Report Ordering Provider Test Date Status PALEJANDRA MD [id number] Final Obs # Observation Date Value Abnormality Reference Status Performing Location 0 TSH [id number] 0.23 Below low normal 0.27-4.2 F [facility] [address] [facility] [address]
--- OUTSIDE RECORDS SUMMARY | 2023-05-10 23:47 | External Medical Summary ---
Author Name Unknown Address [address] [phone] Phone Organization K01:[facility] [address] [facility] [address] Laboratory Report Ordering Provider Test Date Status PALEJANDRA MD [id number] Final Obs # Observation Date Value Abnormality Reference Status Performing Location 0 25-OH Vitamin D total [id number] 28 >19 Final [facility] [address] [facility] [address]
--- OUTSIDE RECORDS SUMMARY | 2023-05-10 23:47 | External Medical Summary ---
Author Name Unknown Organization K01:[facility] [address] [address] Laboratory Report Ordering Provider Test Date Status PEGGY ALEJO MD 12/30/2013 15:20:00-0400 Marry moreland Obs # Observation Date Value ABNL Reference Status Pe rforming Location 1 T4, Free 12/30/2013 22:19-0400 2.07 H 0.7-1.7 ng/dL Final
--- OUTSIDE RECORDS SUMMARY | 2023-05-10 23:47 | External Medical Summary ---
Author Name Unknown Organization K01:[facility], [address] [address] Laboratory Report Ordering Provider Test Date Status Nancy ROBERTS MD 12/09/2014 15:28:00-0400 Final Obs # Observation Date Value ABNL Reference Status Pe rforming Location 1 Albumin, Urine 12/09/2014 23:38-0400 2.10 H 0-2 mg/dL Final 2 Creatinine, Random Urine 12/09/2014 23:38-0400 291 mg/dL Final 3 Microalbumin / Creatinine Ratio 12/09/2014 23:38-0400 7 <31 mg/g creat Final Normal: 0- 29 mg/g creatinine High: 30-300 mg/g creatinine Very High and Nephrotic: >300 mg/g creatinine
--- OUTSIDE RECORDS SUMMARY | 2023-05-10 23:47 | External Medical Summary ---
Author Name Unknown Organization K01:[facility], [address] [id number] Laboratory Report Ordering Provider Test Date Status Nancy ROBERTS MD 02/27/2014 09:21:00-0400 Final Obs # Observation Date Value ABNL Reference Status Pe rforming Location 1 ESR 02/27/2014 14:52-0400 34 H 0-20 mm/hour Final
--- OUTSIDE RECORDS SUMMARY | 2023-05-10 23:47 | External Medical Summary ---
Author Name Unknown Organization K01:[facility], [address] [address] Laboratory Report Ordering Provider Test Date Status Nancy ROBERTS MD 02/27/2014 09:21:00-0400 Final Obs # Observation Date Value ABNL Reference Status Pe rforming Location 1 LDL, (direct) 02/27/2014 14:20-0400 89 0-129 mg/dL Final LDL CHOLESTEROL REFERENCE RANGES(mg/dL) <100 OPTIMAL GOAL FOR HIGH RISK PATIENTS 100-129 NEAR OR ABOVE NORMAL 130-159 BORDERLINE HIGH 160-189 HIGH >189 VERY HIGH
--- OUTSIDE RECORDS SUMMARY | 2023-05-10 23:47 | External Medical Summary ---
Author Name Unknown Organization K01:[facility], [address] [facility] [address] Laboratory Report Ordering Provider Test Date Status Nancy ROBERTS MD 10/20/2014 09:26:00-0500 Final Obs # Observation Date Value ABNL Reference Status Pe rforming Location 1 HbA1C 10/20/2014 14:54-0500 5.7 4.0-6.4 % Final 2 Glucose, estimated average 10/20/2014 14:54-0500 117 <126 MG/DL Final
--- OUTSIDE RECORDS SUMMARY | 2023-05-10 23:47 | External Medical Summary ---
Author Name Unknown Address Unknown Organization : Laboratory Report Ordering Provider Test Date Status ALEJANDRA Cruz MD [id number] Final Obs # Observation Date Value Abnormality Reference Status Performing Location 0 hours fasting [id number] 12 Final 1 Triglyceride [id number] 128 <200 Final
--- OUTSIDE RECORDS SUMMARY | 2023-05-10 23:47 | External Medical Summary ---
Author Name Unknown Organization K01:[facility], [address] [address] Laboratory Report Ordering Provider Test Date Status Nancy ROBERTS MD 05/29/2014 09:00:00-0400 Final Obs # Observation Date Value ABNL Reference Status Pe rforming Location 1 LDL, (direct) 05/29/2014 14:53-0400 68 0-129 mg/dL Final LDL CHOLESTEROL REFERENCE RANGES(mg/dL) <100 OPTIMAL GOAL FOR HIGH RISK PATIENTS 100-129 NEAR OR ABOVE NORMAL 130-159 BORDERLINE HIGH 160-189 HIGH >189 VERY HIGH
--- OUTSIDE RECORDS SUMMARY | 2023-05-10 23:47 | External Medical Summary ---
Author Name Unknown Address [address] [phone] Phone Organization K01:[facility] [address] [id number] Laboratory Report Ordering Provider Test Date Status PALEJANDRA MD [id number] Final Obs # Observation Date Value Abnormality Reference Status Performing Location 0 BUN [id number] 16 6-20 Final [facility] [address] [facility] [address] 1 Creatinine [id number] 0.8 0.5-1.0 [facility] [address] [facility] [address]
--- OUTSIDE RECORDS SUMMARY | 2023-05-10 23:47 | External Medical Summary ---
Author Name Unknown Organization K01:[facility], [address] [address] Laboratory Report Ordering Provider Test Date Status Nancy ROBERTS MD 08/28/2014 08:39:00-0500 Final Obs # Observation Date Value ABNL Reference Status Pe rforming Location 1 HbA1C 08/28/2014 17:22-0500 6.7 H 4.0-6.4 % Final 2 Glucose, estimated average 08/28/2014 17:22-0500 146 H <126 MG/DL Final
--- OUTSIDE RECORDS SUMMARY | 2023-05-10 23:47 | External Medical Summary ---
Author Name Unknown Organization K01:[facility], [address] [address] Laboratory Report Ordering Provider Test Date Status Nancy ROBERTS MD 08/28/2014 09:02:00-0500 Final Obs # Observation Date Value ABNL Reference Status Pe rforming Location 1 Albumin, Urine 08/28/2014 14:39-0500 0.90 0-2 mg/dL Final 2 Creatinine, Random Urine 08/28/2014 14:39-0500 249 mg/dL Final 3 Microalbumin / Creatinine Ratio 08/28/2014 14:39-0500 4 <31 mg/g creat Final Normal: 0- 29 mg/g creatinine High: 30-300 mg/g creatinine Very High and Nephrotic: >300 mg/g creatinine
--- OUTSIDE RECORDS SUMMARY | 2023-05-10 23:47 | External Medical Summary ---
Author Name Unknown Address [address] [phone] Phone Organization K01:[facility] [address] [id number] Laboratory Report Ordering Provider Test Date Status PALEJANDRA MD [id number] Final Obs # Observation Date Value Abnormality Reference Status Performing Location 0 HbA1C [id number] 6.1 4.0-6.4 Final [facility] [address] [facility] [address]
--- OUTSIDE RECORDS SUMMARY | 2023-05-10 23:47 | External Medical Summary ---
Author Name Unknown Organization K01:[facility], [address] [address] Laboratory Report Ordering Provider Test Date Status PEGGY ALEJO MD 12/30/2013 15:20:00-0400 Marry l Obs # Observation Date Value ABNL Reference Status Pe rforming Location 1 TSH 12/30/2013 22:19-0400 0.01 L 0.27-4.2 uIU/mL Final
--- OUTSIDE RECORDS SUMMARY | 2023-05-10 23:47 | External Medical Summary ---
Author Name Unknown Organization K01:[facility], [address] [address] Laboratory Report Ordering Provider Test Date Status Nancy ROBERTS MD 05/29/2014 09:00:00-0400 Final Obs # Observation Date Value ABNL Reference Status Pe rforming Location 1 TSH 4 14:19-040 0 2.92 0.27-4.2 uIU/mL Final 2 FREE T4 REFLEXIVE 4 14:19-040 0 NOT APPLICABLE 0.7-1.7 ng/dL Final
--- OUTSIDE RECORDS SUMMARY | 2023-05-10 23:47 | External Medical Summary ---
Author Name Unknown Organization K01:[facility], [address] [address] Laboratory Report Ordering Provider Test Date Status Nancy ROBERTS MD 05/29/2014 09:00:00-0400 Final Obs # Observation Date Value ABNL Reference Status Pe rforming Location 1 BUN 05/29/2014 14:53-0400 18 6-20 mg/dL Final 2 Creatinine 05/29/2014 14:53-0400 0.8 0.5-1.1 mg/dL Final GFR should be used to assess renal function. Plasma/Serum creatinine may not be able to properly reflect renal function in some cases. If patient is , multiply estimated GFR by 1.159.
--- OUTSIDE RECORDS SUMMARY | 2023-05-10 23:47 | External Medical Summary ---
Author Name Unknown Address [address] [facility] [place] Phone Organization K01:[facility] [address] [facility] [address] Laboratory Report Ordering Provider Test Date Status JANE FLORES DO [id number] Final Obs # Observation Date Value Abnormality Reference Status Performing Location 0 WBC [id number] 11.88 Above high normal 4.00-10.80 [facility] [address] [facility] [address] 1 RBC [id number] 4.13 3.85-5.15 [facility] [address] [facility] [address] 2 Hemoglobin [id number] 13.5 12.0-15.3 [facility] [address] [facility] [address] 3 HCT [id number] 41.4 36.0-45.2 [facility] [address] [facility] [address] 4 MCV [id number] 100.2 Above high normal 81.5-97.5 [facility] [address] [facility] [address] 5 MCH [id number] 32.7 27.0-34.0 [facility] [address] [facility] [address] 6 MCHC [id number] 32.6 32.0-36.0 [facility] [address] [facility] [address] 7 RDW [id number] 14.0 11.5-15.5 [facility] [address] [facility] [address] 8 Platelets [id number] 124 Below low normal 140-400 [facility] [address] [facility] [address] 9 MPV [id number] 13.0 Above high normal 6.6-11.1 [facility] [address] [facility] [address] 10 Segs [id number] 79 Above high normal 40-75 [facility] [address] [facility] [address] 11 Lymphocytes [id number] 12 Below low normal 18-42 Final [facility] [address] [facility] 12 Monos [id number] 6 1-11 Final [facility] [address] [facility] 13 Eosinophils [id number] 2 0-6 Final [facility] [address] [facility] 14 IMMATURE GRANULOCYTE [id number] 1 0-2 [facility] [address] [facility] 15 Segmented Neutrophils, Abs [id number] 9.46 Above high normal 1.8-7.7 [facility] [address] [facility] 16 Lymphs, Abs [id number] 1.38 1.0-4.8 [facility] [address] [facility] 17 Monos, Abs [id number] 0.69 0.0-1.1 [facility] [address] [facility] 18 Eos, Abs [id number] 0.26 0.0-0.[address] [facility] [address] [facility] 19 Basos, Abs [id number] 0.03 0.0-0.2 [facility] [address] [facility] 20 ABS. IMMATURE GRAN [id number] 0.06 0.0-0.2 [facility] [address] [facility]
--- OUTSIDE RECORDS SUMMARY | 2023-05-10 23:47 | External Medical Summary ---
Author Name Unknown Organization [id number] Laboratory Report Ordering Provider Test Date Status Nancy ROBERTS MD 08/28/2014 08:39:00-0500 Final Obs # Observation Date Value ABNL Reference Status Pe rforming Location 1 hours fasting 08/28/2014 08:41-0500 12 hours Final 2 Triglyceride 08/28/2014 14:32-0500 175 <200 mg/dL Final TRIGLYCERIDE REFERENCE RANGES (mg/dL) [...]
--- OUTSIDE RECORDS SUMMARY | 2023-05-10 23:47 | External Medical Summary ---
Author Name Unknown Organization K01:[facility], [address] [facility] [address] Laboratory Report Ordering Provider Test Date Status Nancy ROBERTS MD 05/29/2014 09:00:00-0400 Final Obs # Observation Date Value ABNL Reference Status Pe rforming Location 1 HbA1C 05/29/2014 16:57-0400 5.5 4.0-6.4 % Final 2 Glucose, estimated average 05/29/2014 16:57-0400 111 <126 MG/DL Final
--- OUTSIDE RECORDS SUMMARY | 2023-05-10 23:47 | External Medical Summary ---
Author Name Unknown Address [address] [phone] Phone Organization K01:[facility] [address] [id number] Laboratory Report Ordering Provider Test Date Status PALEJANDRA MD [id number] Final Obs # Observation Date Value Abnormality Reference Status Performing Location 0 HbA1C [id number] 5.6 4.0-6.4 Final [facility] [address] [facility] [address]
--- OUTSIDE RECORDS SUMMARY | 2023-05-10 23:47 | External Medical Summary ---
Author Name Unknown Address [address] [place] [address] Phone Organization K01:[facility] [address] [address] Laboratory Report Ordering Provider Test Date Status PALEJANDRA MD [id number] Final Obs # Observation Date Value Abnormality Reference Status Performing Location 0 BUN [id number] 12 6-20 Final [facility] [address] [facility] [address] 1 Creatinine [id number] 0.8 0.5-1.0 [facility] [address] [facility] [address]
--- OUTSIDE RECORDS SUMMARY | 2023-05-10 23:47 | External Medical Summary ---
Author Name Unknown Organization K01:[facility], [address] [facility] [address] Laboratory Report Ordering Provider Test Date Status Nancy ROBERTS MD 12/09/2014 10:25:00-0400 Final Obs # Observation Date Value ABNL Reference Status Pe rforming Location 1 HbA1C 12/09/2014 23:45-0400 7.3 H 4.0-6.4 % Final 2 Glucose, estimated average 12/09/2014 23:45-0400 163 H <126 MG/DL Final
--- OUTSIDE RECORDS SUMMARY | 2023-05-10 23:48 | External Medical Summary ---
Author Name SAPNA WILKERSON Organization K01:[facility], [facility] [place] [address] [address] Support Name Relationship Address Phone SAPNA WILKERSON, PEGGY PROV Unknown Unavaila ble Laboratory Report Ordering Provider Test Date Status PEGGY ALEJO MD 10/18/2012 09:15:00-0500 Marry l Obs # Observation Date Value ABNL Reference Status Pe rforming Location 1 BUN 10/18/2012 13:59-0500 21 H 6-20 mg/dL Final 2 Creatinine 10/18/2012 13:59-0500 0.7 0.5-1.1 mg/dL Final GFR should be used to assess renal function. Plasma/Serum creatinine may not be able to properly reflect renal function in some cases.
--- OUTSIDE RECORDS SUMMARY | 2023-05-10 23:48 | External Medical Summary ---
Author Name Unknown Organization K01:[facility], [address] [address] Laboratory Report Ordering Provider Test Date Status Nancy ROBERTS MD 06/20/2013 10:18:00-0400 Final Obs # Observation Date Value ABNL Reference Status Pe rforming Location 1 TSH 06/21/2013 00:30-0400 0.11 L 0.27-4.2 uIU/mL Final 2 FREE T4 REFLEXIVE 06/21/2013 00:30-0400 1.86 H 0.7-1.7 Final
--- OUTSIDE RECORDS SUMMARY | 2023-05-10 23:48 | External Medical Summary ---
Author Name ALEJANDRA WILKERSON Organization K01:[facility], [address] [address] Support Name Relationship Address Phone ALEJANDRA WILKERSON, P PROV Unknown Unavailable Laboratory Report Ordering Provider Test Date Status Nancy ROBERTS MD 05/02/2012 09:53:00-0400 Final Obs # Observation Date Value ABNL Reference Status Pe rforming Location 1 HbA1C 05/03/2012 03:16-0400 6.2 3.4-6.4 % Final 2 Glucose, estimated average 05/03/2012 03:16-0400 131 H <126 MG/DL Final
--- OUTSIDE RECORDS SUMMARY | 2023-05-10 23:48 | External Medical Summary ---
Author Name ALEJANDRA WILKERSON Organization K01:[facility], [address] [address] Support Name Relationship Address Phone ALEJANDRA WILKERSON, P PROV Unknown Unavailable Laboratory Report Ordering Provider Test Date Status Nancy ROBERTS MD 04/06/2012 09:27:00-0400 Final Obs # Observation Date Value ABNL Reference Status Pe rforming Location 1 TSH 04/06/2012 14:56-0400 7.68 H 0.27-4.2 uIU/mL Final
--- OUTSIDE RECORDS SUMMARY | 2023-05-10 23:48 | External Medical Summary ---
Author Name Unknown Organization K01:[facility], [address] [address] Laboratory Report Ordering Provider Test Date Status Nancy ORBERTS MD 10/28/2013 12:46:00-0500 Final Obs # Observation Date Value ABNL Reference Status Pe rforming Location 1 Albumin, Urine 10/28/2013 21:32-0500 0.30 0-2 mg/dL Final 2 Creatinine, Random Urine 10/28/2013 21:32-0500 189 mg/dL Final 3 Microalbumin / Creatinine Ratio 10/28/2013 21:32-0500 2 <31 mg/g creat Final Normal: 0- 29 mg/g creatinine High: 30-300 mg/g creatinine Very High and Nephrotic: >300 mg/g creatinine
--- OUTSIDE RECORDS SUMMARY | 2023-05-10 23:48 | External Medical Summary ---
Author Name ALEJANDRA WILKERSON Organization [id number] Support Name Relationship Address Phone ALEJANDRA WILKERSON, P PROV Unknown Unavailable Laboratory Report Ordering Provider Test Date Status Nancy ROBERTS MD 04/16/2012 11:48:00-0400 Final Obs # Observation Date Value ABNL Reference Status Pe rforming Location 1 specimen 04/16/2012 11:49-0400 CLEAN CATCH URINE Final 2 result 04/17/2012 14:29-0400 MULTIPLE MAYRA SUGGESTS CONTAMINATION Final 3 report status 04/17/2012 14:29-0400 04/17/2012 FINAL Final
--- OUTSIDE RECORDS SUMMARY | 2023-05-10 23:48 | External Medical Summary ---
Author Name ALEJANDRA WILKERSON [facility], [address] [address] Support Name Relationship Address Phone ALEJANDRA WILKERSON, P PROV Unknown Unavailable Laboratory Report Ordering Provider Test Date Status Nancy ROBERTS MD 12/24/2012 08:41:00-0400 Final Obs # Observation Date Value ABNL Reference Status Pe rforming Location 1 25OH VITAMIN D TOTAL 12/24/2012 15:00-0400 21.5 L 30.0-100.0 ng/mL Final Deficient: <20.0 ng/mL Insufficient: 20.0-29.9 ng/ml Sufficient: 30.0-100.0 ng/ml High: >100.0 ng/ml Refer to [facility] Osteoporosis for Practitioners Best Practice Guidelines for therapeutic recommendations.
--- OUTSIDE RECORDS SUMMARY | 2023-05-10 23:48 | External Medical Summary ---
Author Name ALEJANDRA WILKERSON Organization [id number] Support Name Relationship Address Phone ALEJANDRA WILKERSON, P PROV Unknown Unavailable Laboratory Report Ordering Provider Test Date Status Nancy ROBERTS MD 04/27/2012 11:06:00-0400 Final Obs # Observation Date Value ABNL Reference Status Pe rforming Location 1 specimen 04/27/2012 11:07-0400 CLEAN CATCH URINE Final 2 result 04/28/2012 14:33-0400 MULTIPLE MAYRA SUGGESTS CONTAMINATION Final 3 report status 04/28/2012 14:33-0400 04/28/2012 FINAL Final
--- OUTSIDE RECORDS SUMMARY | 2023-05-10 23:48 | External Medical Summary ---
Author Name ALEJANDRA WILKERSON Organization K01:[facility], [address] [address] Support Name Relationship Address Phone ALEJANDRA WILKERSON, P PROV Unknown Unavailable Laboratory Report Ordering Provider Test Date Status P ALEJANDRA WILKERSON 01/09/2013 09:08:00-0400 Final Obs # Observation Date Value ABNL Reference Status Pe rforming Location 1 Source 01/09/2013 09:08-0400 THROAT Final 2 RESULT 01/09/2013 17:10-0400 SEE COMMENT NGADP Final NEGATIVE. NO GROUP A STREPTOCOCCUS DETECTED BY DIRECT MOLECULAR PROBE.
--- OUTSIDE RECORDS SUMMARY | 2023-05-10 23:48 | External Medical Summary ---
Author Name SAPNA WILKERSON Organization K01:[place] [address] [address] [address] Support Name Relationship Address Phone SAPNA WILKERSON, PEGGY [facility] Unknown Unavaila ble Laboratory Report Ordering Provider Test Date Status PEGGY ALEJO MD 10/18/2012 09:15:00-0500 Marry l Obs # Observation Date Value ABNL Reference Status Pe rforming Location 1 HbA1C 10/18/2012 15:37-0500 5.9 3.4-6.4 % Final 2 Glucose, estimated average 10/18/2012 15:37-0500 123 <126 MG/DL Final
--- OUTSIDE RECORDS SUMMARY | 2023-05-10 23:48 | External Medical Summary ---
Author Name ALEJANDRA WILKERSON Organization K01:[facility], [address] [address] Support Name Relationship Address Phone ALEJANDRA WILKERSON, P PROV Unknown Unavailable Laboratory Report Ordering Provider Test Date Status Nancy ROBERTS MD 12/10/2012 08:43:00-0400 Final Obs # Observation Date Value ABNL Reference Status Pe rforming Location 1 TSH 12/10/2012 17:47-0400 16.05 H 0.27-4.2 uIU/mL Final
--- OUTSIDE RECORDS SUMMARY | 2023-05-10 23:48 | External Medical Summary ---
Author Name SAPNA WILKERSON Organization K01:[place] [address] [address] [address] Support Name Relationship Address Phone SAPNA WILKERSON, PEGGY [facility] Unknown Unavaila ble Laboratory Report Ordering Provider Test Date Status PEGGY ALEJO MD 10/18/2012 09:15:00-0500 Marry l Obs # Observation Date Value ABNL Reference Status Pe rforming Location 1 Cortisol 10/18/2012 13:45-0500 6.1 ug/dL Final AM REFERENCE RANGE 6.2-19.4 ug/dL
--- OUTSIDE RECORDS SUMMARY | 2023-05-10 23:48 | External Medical Summary ---
Author Name ALEJANDRA WILKERSON Organization K01:[facility], [address] [address] Support Name Relationship Address Phone ALEJANDRA WILKERSON, P PROV Unknown Unavailable Laboratory Report Ordering Provider Test Date Status Nancy ROBERTS MD 04/06/2012 09:27:00-0400 Final Obs # Observation Date Value ABNL Reference Status Pe rforming Location 1 BUN 04/06/2012 14:52-0400 18 6-20 mg/dL Final 2 Creatinine 04/06/2012 14:52-0400 0.8 0.5-1.1 mg/dL Final GFR should be used to assess renal function. Plasma/Serum creatinine may not be able to properly reflect renal function in some cases.
--- OUTSIDE RECORDS SUMMARY | 2023-05-10 23:48 | External Medical Summary ---
Author Name Unknown Organization K01:[facility], [address] [facility] [address] Laboratory Report Ordering Provider Test Date Status Nancy ROBERTS MD 06/20/2013 10:19:00-0400 Final Obs # Observation Date Value ABNL Reference Status Pe rforming Location 1 LDL, (direct) 06/20/2013 23:08-0400 86 0-129 mg/dL Final LDL CHOLESTEROL REFERENCE RANGES(mg/dL) <100 OPTIMAL GOAL FOR HIGH RISK PATIENTS 100-129 NEAR OR ABOVE NORMAL 130-159 BORDERLINE HIGH 160-189 HIGH >189 VERY HIGH
--- OUTSIDE RECORDS SUMMARY | 2023-05-10 23:48 | External Medical Summary ---
Author Name SAPNA WILKERSON Organization K01:[place] [address] [address] [address] Support Name Relationship Address Phone SAPNA WILKERSON, PEGGY [facility] Unknown Unavaila ble Laboratory Report Ordering Provider Test Date Status PEGGY ALEJO MD 10/18/2012 09:15:00-0500 Marry l Obs # Observation Date Value ABNL Reference Status Pe rforming Location 1 TSH 10/18/2012 13:49-0500 14.56 H 0.27-4.2 uIU/mL Final
--- OUTSIDE RECORDS SUMMARY | 2023-05-10 23:48 | External Medical Summary ---
Author Name ALEJANDRA WILKERSON Organization K01:[facility], [address] [address] Support Name Relationship Address Phone ALEJANDRA WILKERSON, P PROV Unknown Unavailable Laboratory Report Ordering Provider Test Date Status Nancy ROBERTS MD 01/26/2012 12:12:00-0400 Final Obs # Observation Date Value ABNL Reference Status Pe rforming Location 1 specimen 2 21:28-040 0 CLEAN CATCH URINE Final 2 result 2 09:35-040 0 >100,000 COLONIES/ML ESCHERICHIA COLI Final 3 result 2 09:35-040 0 >100,000 COLONIES/ML ENTEROCOCCUS SPECIES Final 4 report status 2 07:18-040 0 01/29/2012 FINAL Final 5 Bacterial Culture 2 00:02-040 0 ESCHERICHIA COLI A Final >100,000 COLONIES/ML ESCHERICHIA COLI >100,000 COLONIES/ML ENTEROCOCCUS SPECIES
--- OUTSIDE RECORDS SUMMARY | 2023-05-10 23:48 | External Medical Summary ---
Author Name Unknown Organization K01:[facility], [address] [address] Laboratory Report Ordering Provider Test Date Status Nancy ROBERTS MD 06/20/2013 10:18:00-0400 Final Obs # Observation Date Value ABNL Reference Status Pe rforming Location 1 25OH VITAMIN D TOTAL 06/21/2013 00:15-0400 19.3 L 30.0-100.0 ng/mL Final Deficient: <20.0 ng/mL Insufficient: 20.0-29.9 ng/ml Sufficient: 30.0-100.0 ng/ml High: >100.0 ng/ml Refer to [facility] Osteoporosis for Practitioners Best Practice Guidelines for therapeutic recommendations.
--- OUTSIDE RECORDS SUMMARY | 2023-05-10 23:48 | External Medical Summary ---
Author Name Unknown Organization K01:[facility], [address] [address] Laboratory Report Ordering Provider Test Date Status Nancy ROBERTS MD 06/20/2013 10:18:00-0400 Final Obs # Observation Date Value ABNL Reference Status Pe rforming Location 1 BUN 06/20/2013 23:13-0400 16 6-20 mg/dL Final 2 Creatinine 06/20/2013 23:13-0400 0.7 0.5-1.1 mg/dL Final GFR should be used to assess renal function. Plasma/Serum creatinine may not be able to properly reflect renal function in some cases.
--- OUTSIDE RECORDS SUMMARY | 2023-05-10 23:48 | External Medical Summary ---
Author Name Unknown Organization K01:[facility], [facility] [address] [address] Laboratory Report Ordering Provider Test Date Status PEGGY ALEJO MD 03/21/2013 09:24:00-0400 Marry moreland Obs # Observation Date Value ABNL Reference Status Pe rforming Location 1 T4, Free 03/21/2013 23:40-0400 0.71 0.7-1.7 ng/dL Final
--- OUTSIDE RECORDS SUMMARY | 2023-05-10 23:48 | External Medical Summary ---
Author Name Unknown Organization K01:[facility], [facility] [address] [address] Laboratory Report Ordering Provider Test Date Status PEGGY ALEJO MD 09/23/2013 08:22:00-0500 Marry l Obs # Observation Date Value ABNL Reference Status Pe rforming Location 1 T4, Free 09/23/2013 13:57-0500 2.39 H 0.7-1.7 ng/dL Final
--- OUTSIDE RECORDS SUMMARY | 2023-05-10 23:48 | External Medical Summary ---
Author Name ALEJANDRA WILKERSON Organization K01:[facility], [address] [address] Support Name Relationship Address Phone ALEJANDRA WILKERSON, P PROV Unknown Unavailable Laboratory Report Ordering Provider Test Date Status Nancy ROBERTS MD 05/25/2012 09:45:00-0400 Final Obs # Observation Date Value ABNL Reference Status Pe rforming Location 1 TSH 05/25/2012 17:48-0400 31.36 H 0.27-4.2 uIU/mL Final
--- OUTSIDE RECORDS SUMMARY | 2023-05-10 23:48 | External Medical Summary ---
Author Name Unknown Organization K01:[facility], [address] [address] Laboratory Report Ordering Provider Test Date Status PEGGY ALEJO MD 03/22/2013 08:19:00-0400 Marry moreland Obs # Observation Date Value ABNL Reference Status Pe rforming Location 1 Cortisol 03/22/2013 14:08-0400 1.4 ug/dL Final AM REFERENCE RANGE 6.2-19.4 ug/dL
--- OUTSIDE RECORDS SUMMARY | 2023-05-10 23:48 | External Medical Summary ---
Author Name Unknown Organization K01:[facility], [address] [address] Laboratory Report Ordering Provider Test Date Status PEGGY ALEJO MD 03/21/2013 09:24:00-0400 Marry moreland Obs # Observation Date Value ABNL Reference Status Pe rforming Location 1 TSH 03/21/2013 23:40-0400 32.64 H 0.27-4.2 uIU/mL Final
--- OUTSIDE RECORDS SUMMARY | 2023-05-10 23:48 | External Medical Summary ---
Author Name Unknown Organization K01:[facility], [address] [id number] Laboratory Report Ordering Provider Test Date Status Nancy ROBERTS MD 09/23/2013 08:23:00-0500 Final Obs # Observation Date Value ABNL Reference Status Pe rforming Location 1 TSH 09/23/2013 13:58-0500 0.01 L 0.27-4.2 uIU/mL Final
--- OUTSIDE RECORDS SUMMARY | 2023-05-10 23:48 | External Medical Summary ---
Author Name ALEJANDRA WILKERSON Organization K01:[facility], [address] [address] Support Name Relationship Address Phone ALEJANDRA WILKERSON, P PROV Unknown Unavailable Laboratory Report Ordering Provider Test Date Status Nancy ROBERTS MD 12/24/2012 08:41:00-0400 Final Obs # Observation Date Value ABNL Reference Status Pe rforming Location 1 TSH 12/24/2012 15:07-0400 11.64 H 0.27-4.2 uIU/mL Final
--- OUTSIDE RECORDS SUMMARY | 2023-05-10 23:48 | External Medical Summary ---
Author Name SAPNA WILKERSON Organization K0W:[address] [address] Support Name Relationship Address Phone SAPNA WILKERSON, PEGGY PROV Unknown Unavaila ble Laboratory Report Ordering Provider Test Date Status PEGGY ALEJO MD 10/18/2012 09:15:00-0500 Marry l Obs # Observation Date Value ABNL Reference Status Pe rforming Location 1 hours fasting 10/18/2012 09:16-0500 12 hours Final 2 Triglyceride 10/18/2012 13:59-0500 205 H <200 mg/dL Final TRIGLYCERIDE REFERENCE RANGES (mg/dL) [...]
--- OUTSIDE RECORDS SUMMARY | 2023-05-10 23:48 | External Medical Summary ---
Author Name Unknown Organization K01:[facility], [address] [address] Laboratory Report Ordering Provider Test Date Status PEGGY ALEJO MD 09/23/2013 08:22:00-0500 Marry l Obs # Observation Date Value ABNL Reference Status Pe rforming Location 1 TSH 09/23/2013 13:57-0500 0.01 L 0.27-4.2 uIU/mL Final
--- OUTSIDE RECORDS SUMMARY | 2023-05-10 23:48 | External Medical Summary ---
Author Name Unknown Organization K01:[facility], [address] [facility] [address] Laboratory Report Ordering Provider Test Date Status Nancy ROBERTS MD 06/20/2013 10:18:00-0400 Final Obs # Observation Date Value ABNL Reference Status Pe rforming Location 1 HbA1C 06/21/2013 09:52-0400 6.6 H 3.4-6.4 % Final 2 Glucose, estimated average 06/21/2013 09:52-0400 143 H <126 MG/DL Final
--- OUTSIDE RECORDS SUMMARY | 2023-05-10 23:48 | External Medical Summary ---
Author Name ALEJANDRA WILKERSON Organization [id number] Support Name Relationship Address Phone ALEJANDRA WILKERSON, Nancy PROV Unknown Unavailable Laboratory Report Ordering Provider Test Date Status Nancy ROBERTS MD 04/06/2012 09:27:00-0400 Final Obs # Observation Date Value ABNL Reference Status Pe rforming Location 1 hours fasting 04/06/2012 09:28-0400 12 hours Final 2 Triglyceride 04/06/2012 14:52-0400 159 <200 mg/dL Final TRIGLYCERIDE REFERENCE RANGES (mg/dL) <150 NORMAL 150-199 BORDERLINE HIGH 200-499 HIGH >499 VERY HIGH TOTAL CHOLESTEROL REFERENCE RANGES(mg/dL) <200 DESIRABLE 200-239 BORDERLINE HIGH >239 HIGH HDL CHOLESTEROL REFERENCE RANGES(mg/dL) <40 LOW >59 HIGH LDL CHOLESTEROL REFERENCE RANGES(mg/dL) <100 OPTIMAL GOAL FOR HIGH RISK PATIENTS 100-129 NEAR OR ABOVE NORMAL 130-159 BORDERLINE HIGH 160-189 HIGH >189 VERY HIGH
--- OUTSIDE RECORDS SUMMARY | 2023-05-10 23:48 | External Medical Summary ---
Author Name Unknown Organization K01:[facility], [address] [address] Laboratory Report Ordering Provider Test Date Status ELLEN NARVAEZ PAC 04/17/2013 13:35:00-040 0 Final Obs # Observation Date Value ABNL Reference Status Pe rforming Location 1 specimen 04/17/2013 13:35-0400 CLEAN CATCH URINE Final 2 result 04/18/2013 12:51-0400 MULTIPLE MAYRA SUGGESTS CONTAMINATION Final 3 report status 04/18/2013 12:51-0400 04/18/2013 FINAL Final
--- OUTSIDE RECORDS SUMMARY | 2023-05-10 23:48 | External Medical Summary ---
Author Name ALEJANDRA WILKERSON Organization K01:[facility], [address] [address] Support Name Relationship Address Phone ALEJANDRA WILKERSON, P PROV Unknown Unavailable Laboratory Report Ordering Provider Test Date Status Nancy ROBERTS MD 05/02/2012 09:53:00-0400 Final Obs # Observation Date Value ABNL Reference Status Pe rforming Location 1 Glucose 05/02/2012 15:49-0400 105 70-120 mg/dL Final
--- OUTSIDE RECORDS SUMMARY | 2023-05-10 23:48 | External Medical Summary ---
Author Name SAPNA WILKERSON Organization K01:[place] [address] [address] [address] Support Name Relationship Address Phone SAPNA WILKERSON, PEGGY [facility] Unknown Unavaila ble Laboratory Report Ordering Provider Test Date Status PEGGY ALEJO MD 10/18/2012 09:15:00-0500 Marry l Obs # Observation Date Value ABNL Reference Status Pe rforming Location 1 T4, Free 10/18/2012 13:48-0500 1.17 0.7-1.7 ng/dL Final
--- OUTSIDE RECORDS SUMMARY | 2023-05-10 23:48 | External Medical Summary ---
Author Name SAPNA WILKERSON [facility], [facility] [address] [address] Support Name Relationship Address Phone SAPNA WILKERSON, PEGGY [facility] Unknown Unavaila ble Laboratory Report Ordering Provider Test Date Status PEGGY ALEJO MD 10/18/2012 09:15:00-0500 Marry l Obs # Observation Date Value ABNL Reference Status Pe rforming Location 1 25OH VITAMIN D TOTAL 10/18/2012 14:04-0500 12.2 L 30.0-100.0 ng/mL Final Deficient: <20.0 ng/mL Insufficient: 20.0-29.9 ng/ml Sufficient: 30.0-100.0 ng/ml High: >100.0 ng/ml Refer to [facility] Osteoporosis for Practitioners Best Practice Guidelines for therapeutic recommendations.
--- OUTSIDE RECORDS SUMMARY | 2023-05-10 23:49 | External Medical Summary ---
Author Name GABY WILKERSON Organization K01[facility], [address] [address] Support Name Relationship Address Phone DEVENDRA GRIFFIN MD PROV Unknown Unavaila ble Laboratory Report Ordering Provider Test Date Status DEVENDRA GRIFFIN MD 11/03/2011 08:09:00-0500 Marry l Obs # Observation Date Value ABNL Reference Status Pe rforming Location 1 BUN 11/03/2011 14:30-0500 20 6-20 mg/dL Final 2 Creatinine 11/03/2011 14:30-0500 1.0 0.5-1.1 mg/dL Final GFR should be used to assess renal function. Plasma/Serum creatinine may not be able to properly reflect renal function in some cases.
--- OUTSIDE RECORDS SUMMARY | 2023-05-10 23:49 | External Medical Summary ---
Author Name Unknown Organization K01:[facility], [address] [address] Support Name Relationship Address Phone DEVENDRA GRIFFIN MD PROV Unknown Unavail able Laboratory Report Ordering Provider Test Date Status DEVENDRA GRIFFIN MD 01/26/2011 10:47-0400 Final Obs # Observation Date Value ABNL Reference Status Pe rforming Location 1 WBC 01/26/2011 22:180400 6.08 4.00-10.80 K/uL Final 2 RBC 01/26/2011 22:180400 4.35 3.85-5.15 M/uL Final 3 HGB 01/26/2011 22:18-0400 14.1 12.0-14.5 g/dL Final 4 HCT 01/26/2011 22:18-0400 43.0 36.0-44.5 % Final 5 MCV 01/26/2011 22:18-0400 98.9 H 81.5-97.5 fL Final 6 MCH 01/26/2011 22:18-0400 32.4 27.0-34.0 pg Final 7 MCHC 01/26/2011 22:18-0400 32.8 32.0-36.0 g/dL Final 8 RDW 01/26/2011 22:18-0400 13.3 11.5-15.5 % Final 9 PLT 01/26/2011 22:18-0400 189 140-400 K/uL Final 10 PLT 01/26/2011 22:18-0400 LARGE PLATELETS PRESENT Final 11 MPV 01/26/2011 22:18-0400 13.8 H 6.6-11.1 fL Final
--- OUTSIDE RECORDS SUMMARY | 2023-05-10 23:49 | External Medical Summary ---
Author Name Unknown Organization [facility] tem Support Name Relationship Address Phone Unavailable PROV Unknown Unavailable Laboratory Report Ordering Provider Test Date Status 06/24/2010 08:56-0400 F Obs # Observation Date Value ABNL Reference Status Pe rforming Location 1 [facility] [place] 06/24/2010 14:47-0400 8.62 H 0.27-4.2 uIU/mL Final
--- OUTSIDE RECORDS SUMMARY | 2023-05-10 23:49 | External Medical Summary ---
Author Name GABY WILKERSON Organization K01:[facility], [address] [address] Support Name Relationship Address Phone DEVENDRA GRIFFIN MD PROV Unknown Unavaila ble Laboratory Report Ordering Provider Test Date Status DEVENDRA GRIFFIN MD 11/03/2011 08:09:00-0500 Marry l Obs # Observation Date Value ABNL Reference Status Pe rforming Location 1 WBC 11/03/2011 14:03-0500 11.88 H 4.00-10.80 K/uL Final 2 RBC 11/03/2011 14:03-0500 4.77 3.85-5.15 M/uL Final 3 HGB 11/03/2011 14:03-0500 15.6 H 12.0-14.5 g/dL Final 4 HCT 11/03/2011 14:03-0500 48.4 H 36.0-44.5 % Final 5 MCV 11/03/2011 14:03-0500 101.5 H 81.5-97.5 fL Final 6 MCH 11/03/2011 14:03-0500 32.7 27.0-34.0 pg Final 7 MCHC 11/03/2011 14:03-0500 32.2 32.0-36.0 g/dL Final 8 RDW 11/03/2011 14:03-0500 13.4 11.5-15.5 % Final 9 PLT 11/03/2011 14:03-0500 181 140-400 K/uL Final 10 MPV 11/03/2011 14:03-0500 13.0 H 6.6-11.1 fL Final
--- OUTSIDE RECORDS SUMMARY | 2023-05-10 23:49 | External Medical Summary ---
Author Name ALEJANDRA WILKERSON Organization K01:[facility], [address] [address] Support Name Relationship Address Phone ALEJANDRA WILKERSON, P PROV Unknown Unavailable Laboratory Report Ordering Provider Test Date Status Nancy ROBERTS MD 01/24/2012 20:07:00-0400 Final Obs # Observation Date Value ABNL Reference Status Pe rforming Location 1 specimen 01/25/2012 14:-0400 CLEAN CATCH URINE Final 2 result 01/26/2012 10:150400 MULTIPLE MAYRA SUGGESTS CONTAMINATION Final 3 report status 01/26/2012 10:150400 01/26/2012 FINAL Final
--- OUTSIDE RECORDS SUMMARY | 2023-05-10 23:49 | External Medical Summary ---
Author Name GABY WILKERSON Organization K01:[place] [address] [address] [address] Support Name Relationship Address Phone DEVENDRA GRIFFIN MD [facility] Unknown Unavaila ble Laboratory Report Ordering Provider Test Date Status DEVENDRA GRIFFIN MD 11/03/2011 08:09:00-0500 Marry l Obs # Observation Date Value ABNL Reference Status Pe rforming Location 1 TSH 11/03/2011 14:48-0500 2.58 0.27-4.2 uIU/mL Final
--- OUTSIDE RECORDS SUMMARY | 2023-05-10 23:49 | External Medical Summary ---
Author Name Unknown Organization [employer] [facility] tem Support Name Relationship Address Phone Unavailable PROV Unknown Unavailable Laboratory Report Ordering Provider Test Date Status 06/24/2010 08:56-0400 F Obs # Observation Date Value ABNL Reference Status Pe rforming Location 1 BUN [facility] 06/24/2010 14:42-0400 18 6-20 mg/dL Final 2 Creat [facility] 06/24/2010 14:42-0400 1.0 0.7-1.5 mg/dL Final 3 Sodium [facility] 06/24/2010 14:42-0400 143 135-146 mmol/L Final 4 Potassium [facility] 06/24/2010 14:42-0400 4.4 3.5-5.1 mmol/L Final 5 Chloride [facility] 06/24/2010 14:42-0400 102 98-111 mmol/L Final 6 CO2 [facility] 06/24/2010 14:42-0400 25 22-32 mmol/L Final 7 Glucose [facility] 06/24/2010 14:42-0400 91 70-120 mg/dL Final 8 Albumin [facility] 06/24/2010 14:42-0400 4.7 3.8-5.0 g/dL Final 9 AST [facility] 06/24/2010 14:42-0400 19 10-35 U/L Final 10 ALP [facility] 06/24/2010 14:42-0400 88 25-125 U/L Final 11 Bilirub [facility] 06/24/2010 14:42-0400 0.4 0.3-1.3 mg/dL Final 12 Calcium [facility] 06/24/2010 14:42-0400 10.5 8.3-10.5 mg/dL Final 13 Prot [facility] 06/24/2010 14:42-0400 7.8 6.0-8.3 g/dL Final 14 ALT SerPl-cCnc 06/24/2010 14:42-0400 33 10-35 U/L Final 15 Anion Gap SerPl-sCnc 06/24/2010 14:42-0400 16 H 7-15 mEq/L Final 16 Pred GFR SerPl MDRD-vRate 06/24/2010 14:42-0400 57.6 L >60 mL/min Final
--- OUTSIDE RECORDS SUMMARY | 2023-05-10 23:49 | External Medical Summary ---
Author Name Unknown Organization [employer] tem Support Name Relationship Address Phone Unavailable PROV Unknown Unavailable Laboratory Report Ordering Provider Test Date Status 06/24/2010 08:56-0400 F Obs # Observation Date Value ABNL Reference Status Pe rforming Location 1 WBC # Bld 06/24/2010 14:30-0400 8.93 4.00-10.80 K/uL Final 2 RBC # Bld 06/24/2010 14:30-0400 4.66 3.85-5.15 M/uL Final 3 Hgb Bld-mCnc 06/24/2010 14:30-0400 15.3 H 12.0-14.5 g/dL Final 4 Hct Fr Bld 06/24/2010 14:30-0400 46.5 H 36.0-44.5 % Final 5 MCV RBC Qn 06/24/2010 14:30-0400 99.9 H 81.5-97.5 fL Final 6 MCH RBC Qn 06/24/2010 14:30-0400 32.8 27.0-34.0 pg Final 7 MCHC RBC-mCnc 06/24/2010 14:30-0400 32.8 32.0-36.0 g/dL Final 8 RDW RBC Qn 06/24/2010 14:30-0400 13.4 11.5-15.5 % Final 9 Platelet # Bld 06/24/2010 14:30-0400 182 150-400 K/uL Final 10 PMV Bld Qn 06/24/2010 14:30-0400 10.4 6.6-11.1 fL Final
--- OUTSIDE RECORDS SUMMARY | 2023-05-10 23:49 | External Medical Summary ---
Author Name Unknown Organization [id number] Support Name Relationship Address Phone DEVENDRA GRIFFIN MD PROV Unknown Unavail able Laboratory Report Ordering Provider Test Date Status DEVENDRA GRIFFIN MD 01/26/2011 10:47-0400 Final Obs # Observation Date Value ABNL Reference Status Pe rforming Location 1 HOURS FASTING 01/27/20 11 10:49-04 00 9 hours Final 2 Triglyceride 01/27/20 11 22:06-04 00 204 60-245 mg/dL Final 3 Cholesterol 01/27/20 11 22:06-04 00 206 H <200 mg/dL Final 4 HDL 01/27/20 11 22:06-04 00 36 L 40-59 mg/dL Final 5 Cholesterol / HDL ratio 01/27/20 11 22:06-04 00 5.7 Final 6 LDL (calculated) 01/27/20 11 22:06-04 00 129 0-129 mg/dL Final 7 LDL (calculated) 01/27/20 11 22:06-04 00 Final 8 LDL (calculated) 01/27/20 11 22:06-04 00 LIPID PANEL REFERENCE RANGES (mg/dL) Final 9 LDL (calculated) 01/27/20 11 22:06-04 00 Final 10 LDL (calculated) 01/27/20 11 22:06-04 00 LDL CHOLESTEROL Final 11 LDL (calculated) 01/27/20 11 22:06-04 00 <100 OPTIMAL GOAL FOR HIGH RISK PATIENTS Final 12 LDL (calculated) 01/27/20 11 22:06-04 00 100-129 NEAR OR ABOVE NORMAL Final 13 LDL (calculated) 01/27/20 11 22:06-04 00 130-159 BORDERLINE HIGH Final 14 LDL (calculated) 01/27/20 11 22:06-04 00 160-189 HIGH Final 15 LDL (calculated) 01/27/20 11 22:06-04 00 >189 VERY HIGH Final 16 LDL (calculated) 01/27/20 11 22:06-04 00 Final 17 LDL (calculated) 01/27/20 11 22:06-04 00 TOTAL CHOLESTEROL Final 18 LDL (calculated) 01/27/20 11 22:06-04 00 <200 DESIRABLE Final 19 LDL (calculated) 01/27/20 11 22:06-04 00 200-239 BORDERLINE HIGH Final 20 LDL (calculated) 01/27/20 11 22:06-04 00 >239 HIGH Final 21 LDL (calculated) 01/27/20 11 22:06-04 00 Final 22 LDL (calculated) 01/27/20 11 22:06-04 00 HDL [id number] Final 23 LDL (calculated) 01/27/20 11 22:06-04 00 <40 LOW Final 24 LDL (calculated) 01/27/20 11 22:06-04 00 40-59 NORMAL Final 25 LDL (calculated) 01/27/20 11 22:06-04 00 >59 HIGH Final
--- OUTSIDE RECORDS SUMMARY | 2023-05-10 23:49 | External Medical Summary ---
Author Name Unknown Organization K01:[facility], [address] [facility] [address] Support Name Relationship Address Phone DEVENDRA GRIFFIN MD PROV Unknown Unavail able Laboratory Report Ordering Provider Test Date Status DEVENDRA GRIFFIN MD 01/26/2011 10:47-0400 Final Obs # Observation Date Value ABNL Reference Status Pe rforming Location 1 BUN 01/26/2011 22:06-0400 11 6-20 mg/dL Final 2 Creatinine 01/26/2011 22:06-0400 0.9 0.7-1.5 mg/dL Final 3 Sodium 01/26/2011 22:06-0400 141 135-146 mmol/L Final 4 Potassium 01/26/2011 22:06-0400 4.1 3.5-5.1 mmol/L Final 5 Cl 01/26/2011 22:06-0400 101 98-111 mmol/L Final 6 CO2 01/26/2011 22:06-0400 28 22-32 mmol/L Final 7 Glucose 01/26/2011 22:06-0400 101 70-120 mg/dL Final 8 Albumin, Serum 01/26/2011 22:06-0400 4.4 3.8-5.0 g/dL Final 9 AST (Aspartate aminotransferase) 01/26/2011 22:06-0400 33 10-35 U/L Final 10 Alk Phos 01/26/2011 22:06-0400 76 25-125 U/L Final 11 Bilirubin, Total 01/26/2011 22:06-0400 0.4 0.3-1.3 mg/dL Final 12 Calcium 01/26/2011 22:06-0400 9.4 8.3-10.5 mg/dL Final 13 Protein 01/26/2011 22:06-0400 7.1 6.0-8.3 g/dL Final 14 ALT (Alanine aminotransferase) 01/26/2011 22:06-0400 30 10-35 U/L Final 15 Anion gap 01/26/2011 22:06-0400 12 7-15 mmol/L Final 16 GFR / 1.73 sq M.predicted 01/26/2011 22:06-0400 >60.0 >60 mL/min Final
--- OUTSIDE RECORDS SUMMARY | 2023-05-10 23:49 | External Medical Summary ---
Author Name Unknown Organization [employer] [facility] tem Support Name Relationship Address Phone Unavailable PROV Unknown Unavailable Laboratory Report Ordering Provider Test Date Status 06/24/2010 08:56-0400 F Obs # Observation Date Value ABNL Reference Status Pe rforming Location 1 HOURS FASTING 06/24/2010 08:56-0400 12 hours Final 2 Trigl SerPl-mCnc 06/24/2010 14:42-0400 160 60-245 mg/dL Final 3 Cholest SerPl-mCnc 06/24/2010 14:42-0400 200 H <200 mg/dL Final 4 HDLc SerPl-mCnc 06/24/2010 14:42-0400 55 40-59 mg/dL Final 5 Cholest/HDLc SerPl-mRto 06/24/2010 14:42-0400 3.6 Final 6 LDLc SerPl Calc-mCnc 06/24/2010 14:42-0400 113 H 0-100 mg/dL Final
--- OUTSIDE RECORDS SUMMARY | 2023-05-10 23:49 | External Medical Summary ---
Author Name ALEJANDRA WILKERSON Organization K01:[facility], [address] [address] Support Name Relationship Address Phone ALEJANDRA WILKERSON, P PROV Unknown Unavailable Laboratory Report Ordering Provider Test Date Status P ALEJANDRA WILKERSON 01/26/2012 10:18:00-0400 Final Obs # Observation Date Value ABNL Reference Status Pe rforming Location 1 BUN 01/26/2012 23:15-0400 14 6-20 mg/dL Final 2 Creatinine 01/26/2012 23:15-0400 0.8 0.5-1.1 mg/dL Final GFR should be used to assess renal function. Plasma/Serum creatinine may not be able to properly reflect renal function in some cases.
--- OUTSIDE RECORDS SUMMARY | 2023-05-10 23:49 | External Medical Summary ---
Author Name GABY WILKERSON Organization [id number] Support Name Relationship Address Phone GABY WILKERSON, DEVENDRA MONTANEZ Unknown Unavaila ble Laboratory Report Ordering Provider Test Date Status DEVENDRA GRIFFIN MD 11/03/2011 08:09:00-0500 Marry l Obs # Observation Date Value ABNL Reference Status Pe rforming Location 1 hours fasting 11/03/2011 08:10-0500 12 hours Final 2 Triglyceride 11/03/2011 14:30-0500 140 <200 mg/dL Final TRIGLYCERIDE REFERENCE RANGES (mg/dL) [...]
--- OUTSIDE RECORDS SUMMARY | 2023-05-10 23:49 | External Medical Summary ---
Author Name ALEJANDRA WILKERSON Organization K01:[facility], [address] [address] Support Name Relationship Address Phone ALEJANDRA WILKERSON, P PROV Unknown Unavailable Laboratory Report Ordering Provider Test Date Status Nancy ROBERTS MD 01/26/2012 10:18:00-0400 Final Obs # Observation Date Value ABNL Reference Status Pe rforming Location 1 ESR 01/26/2012 23:05-0400 14 0-20 mm/hour Final
--- OUTSIDE RECORDS SUMMARY | 2023-05-10 23:49 | External Medical Summary ---
Author Name ALEJANDRA WILKERSON Organization K01:[facility], [address] [address] Support Name Relationship Address Phone ALEJANDRA WILKERSON, P PROV Unknown Unavailable Laboratory Report Ordering Provider Test Date Status Nancy ROBERTS MD 01/26/2012 10:18:00-0400 Final Obs # Observation Date Value ABNL Reference Status Pe rforming Location 1 CK 01/26/2012 23:15-0400 181 H 34-174 U/L Final
--- OUTSIDE RECORDS SUMMARY | 2023-05-10 23:49 | External Medical Summary ---
Author Name Unknown Organization K01:[facility], [address] [address] Support Name Relationship Address Phone DEVENDRA GRIFFIN MD PROV Unknown Unavail able Laboratory Report Ordering Provider Test Date Status DEVENDRA GRIFFIN MD 01/26/2011 10:47-0400 Final Obs # Observation Date Value ABNL Reference Status Pe rforming Location 1 TSH 01/26/2011 22:13-0400 7.34 H 0.27-4.2 uIU/mL Final
[2023-05-11] MEDS: LINACLOTIDE 145 MCG CAPSULE PO SCH (06:14)
[2023-05-11] MEDS: LEVOTHYROXINE SODIUM 150 MCG TABLET PO SCH (06:14)
[2023-05-11] MEDS: HEPARIN 100 UNIT/ML 5ML FLUSH FLUSH PRN (06:40)
[2023-05-11] MEDS: ALBUT/IPRATROP 3MG/0.5MG NEB 3 ML VIAL NEB SCH ×4 (06:58→18:29)
[2023-05-11 07:10] LABS: Hematocrit (blood only) 31.9 % (37.0-47.0); Mean Corpuscular Hemoglobin 35.8 pg (25.0-34.0); Mean Corpuscular Hgb Conc 31.3 g/dL (32.0-36.0); Mean Corpuscular Volume 114.3 fL (80.0-100.0); Mean Platelet Volume 12.8 fL (9.4-12.4); Nucleated RBC # (auto) 0.03 K/uL (0.00-0.12); Nucleated RBC % (auto) 0.7 %; Platelet Count 65 K/uL (130-400); RDW Coefficient of Variation 17.6 % (11.5-14.5); RDW Standard Deviation 74.2 fL (36.4-46.3); Red Blood Count 2.79 M/uL (4.20-5.40); White Blood Count 4.35 K/ul (4.8-10.8)
[2023-05-11 07:35] LABS: Albumin Globulin Ratio 0.8 (0.9-2); Albumin Level 2.7 gm/dl (3.4-5.0); BUN Creatinine Ratio 35.3 (10-20); Bilirubin,Total 2.1 mg/dl (0.2-1.0); Calcium 8.8 mg/dl (8.6-10.3); Creatinine Clr Calc Pharmacy 70.2 ml/min; Est GFR (African American) 81.6 ml/min; Est GFR (Non-African American) 70.4 ml/min; Globulin 3.4 gm/dl (2.5-4.0); Magnesium 2.1 mg/dl (1.7-2.4); Phosphorus 2.5 mg/dl (2.5-4.9); Potassium 3.8 mmol/L (3.5-5.1); Total Protein 6.1 gm/dl (6.0-8.3)
[2023-05-11] MEDS: predniSONE 20 MG TAB PO SCH (09:40)
[2023-05-11] MEDS: ESCITALOPRAM OXALATE 20 MG TAB PO SCH (09:40)
[2023-05-11] MEDS: ASPIRIN 81 MG CHEW PO SCH (09:40)
[2023-05-11] MEDS: CETIRIZINE HCL 10 MG TABLET PO SCH (09:40)
[2023-05-11] MEDS: DOXYCYCLINE HYCLATE 100 MG CAP PO SCH ×2 (09:41→20:32)
[2023-05-11] MEDS: DOCUSATE SODIUM 100 MG CAP PO SCH (09:41)
[2023-05-11] MEDS: FLUTICASONE/VILANTEROL 200/25MCG 14 PUFFS/INHALER INH SCH (09:41)
[2023-05-11] MEDS: PANTOprazole 40 MG TAB PO SCH ×2 (09:41→20:32)
[2023-05-11] MEDS: oxyBUTYnin chloride 5 MG TAB PO SCH ×2 (09:41→20:32)
[2023-05-11] MEDS: INSULIN ASPART PER UNIT CHARGE SC SCH ×4 (09:42→20:39)
[2023-05-11] MEDS: FLUTICASONE PROPIONATE NA SPR 16 GM BTL SCH (09:42)
[2023-05-11] MEDS: LACTULOSE SYRUP 30 GM/45 ML UDP PO SCH ×3 (09:42→20:32)
[2023-05-11] MEDS: LANTUS PER UNIT CHARGE SQ SCH (09:43)
--- NOTE | 2023-05-11 10:41 | Hospitalist Progress Note ---
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 Got IVF bolus, Lactate peaked at 5. Considering history of cirrhosis and abd CT showing moderate ascites, IR evaluated for possible diagnostic tap but noted scant ascites to tap Get ID consult in view of ESBL Hyperkalemia on admission may be related to home potassium/aldactone. Holding home po potassium for now Was reported to have had confusion per on day of admission CT head did not show any acute abnormalities Encephalopathy may be related to current illness Hypotension BP was low on admission. Hypotension resolved for now Continue to monitor NAFLD Cirrhosis Continue lactulose Resume lasix, aldactone Continue to hold home potassium for now Mood disorder Fibromyalgia Continue home medication Hyperlipidemia On atorvastatin Chronic pancytopenia Likely secondary to cirrhosis Gets regular PRBC approximately every 2 weeks per patient via chest port Hemoglobin at baseline Monitor Hypothyroidism Continue levothyroxine Diabetes mellitus Hold home antidiabetic agents Continue ISS per protocol Monitor Elevated troponin Maybe due to demand ischemia from infection TTE noted technically difficult, conc LVH, EF 65-70%, mildly dilated LA DVT prophylaxis. SCDs RE thrombocytopenia Full code Patient requesting updates from providers. Mr. Syed Bustos, contact numbers [phone]. I spent a total of 50 minutes coordinating, documenting and providing care for this patient excluding time spent in performance of separately billed services Admission and Anticipated Discharge Date Admission Date: May 09, 2023 Subjective Patient seen and examined Reports weakness Denied abd pain, nausea or vomiting today Still reports nonproductive cough. 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 Physical Exam Constitutional: + well hydrated and + obese; no acute distress Eyes: PERRL, conjunctivae normal, anicteric sclerae ENMT: external ear and nose normal, oropharynx normal Respiratory: normal respiratory effort; no respiratory distress Diminished breath sounds Cardiovascular: Rate/Rhythm: regular rate and regular rhythm S1 S2 Gastrointestinal (Abdomen): normal bowel sounds, soft, nontender, no hepatosplenomegaly Musculoskeletal: +ALEX Neurologic: PERRL, EOMI, accommodation nl, no face palsy, no dysarthria Psychiatric: A+Ox3, euthymic affect Alert and oriented to person, place, day,month but not year Genitourinary: Cline in situ Results & Data Results & Data Vital Signs (Past 12 Hours) Vital Signs Temp Pulse Pulse Resp BP Pulse Ox O2 Del Method 05/11/23 08:23 37.0 C 77 18 126/88 92 Nasal Cannula 05/11/23 06:59 75 17 93 Nasal Cannula 05/11/23 03:40 37.2 C 79 18 107/71 94 Nasal Cannula 05/10/23 23:52 78 05/10/23 23:36 37.0 C 83 20 118/73 94 Nasal Cannula O2 Flow Rate 05/11/23 08:23 3 05/11/23 06:59 3 05/11/23 03:40 3.0 05/10/23 23:52 05/10/23 23:36 3.0 Laboratory Results Abnormal lab results 05/10/23 05/10/23 05/10/23 Range/Units 05:55 11:22 16:17 WBC (4.8-10.8) K/ul RBC (4.20-5.40) M/uL Hgb (12.0-16.0) g/dl Hct (37.0-47.0) % MCV (80.0-100.0) fL MCH (25.0-34.0) pg MCHC (32.0-36.0) g/dL RDW Std Deviation (36.4-46.3) fL RDW Coeff of Bradley (11.5-14.5) % Plt Count (130-400) K/uL MPV (9.4-12.4) fL Chloride (98-107) mmol/L BUN (6-23) mg/dl BUN/Creatinine Ratio (10-20) Glucose (70-99(Fasting)) mg/dl POC Glucose 251 H 195 H (70-99) mg/dl Total Bilirubin (0.2-1.0) mg/dl AST (13-39) U/L ALT (7-52) U/L Lactate Dehydrogenase 355 H (86-244) U/L Albumin (3.4-5.0) gm/dl Albumin/Globulin Ratio (0.9-2) 05/10/23 05/11/23 05/11/23 Range/Units 21:39 06:19 06:19 WBC 4.35 L (4.8-10.8) K/ul RBC 2.79 L (4.20-5.40) M/uL Hgb 10.0 L (12.0-16.0) g/dl Hct 31.9 L (37.0-47.0) % MCV 114.3 H (80.0-100.0) fL MCH 35.8 H (25.0-34.0) pg MCHC 31.3 L (32.0-36.0) g/dL RDW Std Deviation 74.2 H (36.4-46.3) fL RDW Coeff of Bradley 17.6 H (11.5-14.5) % Plt Count 65 L (130-400) K/uL MPV 12.8 H (9.4-12.4) fL Chloride 111 H (98-107) mmol/L BUN 30 H (6-23) mg/dl BUN/Creatinine Ratio 35.3 H (10-20) Glucose 207 H (70-99(Fasting)) mg/dl POC Glucose 257 H (70-99) mg/dl Total Bilirubin 2.1 H (0.2-1.0) mg/dl AST 86 H (13-39) U/L ALT 69 H (7-52) U/L Lactate Dehydrogenase (86-244) U/L Albumin 2.7 L (3.4-5.0) gm/dl Albumin/Globulin Ratio 0.8 L (0.9-2) 05/11/23 Range/Units 07:44 WBC (4.8-10.8) K/ul RBC (4.20-5.40) M/uL Hgb (12.0-16.0) g/dl Hct (37.0-47.0) % MCV (80.0-100.0) fL MCH (25.0-34.0) pg MCHC (32.0-36.0) g/dL RDW Std Deviation (36.4-46.3) fL RDW Coeff of Bradley (11.5-14.5) % Plt Count (130-400) K/uL MPV (9.4-12.4) fL Chloride (98-107) mmol/L BUN (6-23) mg/dl BUN/Creatinine Ratio (10-20) Glucose (70-99(Fasting)) mg/dl POC Glucose 191 H (70-99) mg/dl Total Bilirubin (0.2-1.0) mg/dl AST (13-39) U/L ALT (7-52) U/L Lactate Dehydrogenase (86-244) U/L Albumin (3.4-5.0) gm/dl Albumin/Globulin Ratio (0.9-2)
[2023-05-11] MEDS: SPIRONOLACTONE 25 MG TAB PO SCH (12:06)
[2023-05-11] MEDS: FUROSEMIDE 20 MG TAB PO SCH (12:06)
[2023-05-11] MEDS: CEROVITE ADV FORMULA TAB PO SCH (12:10)
--- NOTE | 2023-05-11 12:51 | Infectious Disease Consult ---
Date of Consultation May 11, 2023 Assessment & Plan (1) Acute hypoxemic respiratory failure: (2) Urinary tract infection due to ESBL Klebsiella: Plan Continue ertapenem while inpatient and discontinue doxycycline if legionella is negative .Can consider switching to ciprofloxacin and zyvox on discharge to complete 7-10 days if no contra-indication such as QT prolongation of DDI .Patient reports she tolerated amoxicillin previousl could consider augmentin if this is verified.Thank you for allowing us to participate in the care of this patient ID will sign off Consultation Information Consultation was provided via telemedicine using two-way real-time interactive telecommunication between the patient and the telemedicine provider. For the duration of the visit, the provider was performing the assessment from a different facility than the patient. This includesuse of bluetooth stethoscope forauscultationperformed by the telepresenter that the telemedicine provider can hear if described in the physical exam. Camper Assembler contact information: Please call [facility] . (Phone Number For Physician Use Only) After establishing a telemedicine visit, patient was: Patient was verified with two unique identifiers, Patient/authorized rep acknowledged consent and understanding and Gave permission to continue telehealth session Time Spent with Patient: Initial => 75 min History of Present Illness Reason for Consultation: ESBL UTI and aspn pneumonia on ertapenem. Abx rec Attending Physician: Leesa Mcarthur MD History of Present Illness 68 y/o F PMHx asthma/restrictive lung disease , mood disorder,fibromyalgia, hypertension, hyperlipidemia, NAFLD cirrhosis, THAD on BiPAP,DM2 insulin requiring, chronic pancytopenia, hypothyroidism, history of MRSA, hx ESBL UTI p/w SOB ,cough and abdominal pain .Patient was found to have ESBL Klebsiella in her urine cultures and has been started on ertapenem and doxycycline Allergies Allergy/AdvReac Type Severity Reaction Status Date / Time adhesive tape Allergy Intermediate ITCHING Verified 05/09/23 21:28 Penicillins Allergy Intermediate Rash Verified 05/09/23 21:28 perflutren AdvReac Intermediate LOWER BACK Verified 05/09/23 21:28 PAIN Home Medications Medication Instructions Recorded Confirmed Type albuterol sulfate 2.5 mg/3 mL 2.5 mg inhalation Q6H PRN Wheezing 04/30/22 05/09/23 History (0.083 %) solution for nebulization aspirin 81 mg chewable tablet 81 mg PO DAILY 04/30/22 05/09/23 History atorvastatin 80 mg tablet 80 mg PO PM 04/30/22 05/09/23 History escitalopram oxalate 20 mg tablet 20 mg PO DAILY 04/30/22 05/09/23 History fluticasone propionate 50 2 spray intranasal DAILY 04/30/22 05/09/23 History mcg/actuation nasal spray,suspension (Flonase Allergy Relief) furosemide 20 mg tablet 20 mg PO DAILY 04/30/22 05/09/23 History gabapentin 300 mg capsule 300 mg PO BID 04/30/22 05/09/23 History gabapentin 300 mg capsule 600 mg PO QPM 04/30/22 05/09/23 History insulin aspart U-100 100 unit/mL See Rx Instructions .Route .COMPLEX 04/30/22 05/09/23 History (3 mL) subcutaneous pen (Novolog FlexPen U-100 Insulin aspart) insulin glargine 100 unit/mL (3 46 unit subcut DAILY 04/30/22 05/09/23 History mL) subcutaneous pen (Lantus Solostar U-100 Insulin) isosorbide mononitrate 30 mg 30 mg PO DAILY 04/30/22 05/09/23 History tablet,extended release 24 hr lidocaine-prilocaine 2.5 %-2.5 % 1 applic topical DIRECTED PRN 04/30/22 05/09/23 History topical cream MEDI-PORT nadolol 40 mg tablet 40 mg PO DAILY 04/30/22 05/09/23 History pantoprazole 20 mg tablet,delayed 40 mg PO BID 04/30/22 05/09/23 History release potassium chloride 10 mEq 10 meq PO QAM 04/30/22 05/09/23 History tablet,extended release silver sulfadiazine 1 % topical 1 applic topical DAILY apply to 04/30/22 05/09/23 History cream wound spironolactone 25 mg tablet 50 mg PO DAILY 04/30/22 05/09/23 History trazodone 50 mg tablet 50 mg PO HS 04/30/22 05/09/23 History metformin 500 mg tablet,extended 500 mg PO DAILY 06/04/22 05/09/23 History release 24 hr lactulose 20 gram/30 mL oral 30 g (45 mL) PO TID #1,200 mL 06/08/22 05/09/23 Rx solution dulaglutide 4.5 mg/0.5 mL 4.5 mg subcut WK 09/21/22 05/09/23 History subcutaneous pen injector (Trulicity) levothyroxine 150 mcg tablet 150 mcg PO DAILYBB 09/21/22 05/09/23 History oxybutynin chloride 5 mg tablet 5 mg PO BID 09/21/22 05/09/23 History benzonatate 200 mg capsule 200 mg PO TID PRN Cough 02/25/23 05/09/23 History cetirizine 10 mg tablet (Zyrtec) 5 mg PO DAILY 02/25/23 05/09/23 History docusate sodium 100 mg capsule 100 mg PO DAILY 02/25/23 05/09/23 History fluticasone 250 mcg-salmeterol 50 1 inh inhalation BID 02/25/23 05/09/23 History mcg/dose blistr powdr for inhalation (Advair Diskus) linaclotide 290 mcg capsule 290 mcg PO DAILYBB 02/25/23 05/09/23 History (Linzess) nitroglycerin 0.4 mg sublingual 0.4 mg sublingual DIRECTED PRN 02/25/23 05/09/23 History tablet (Nitrostat) Chest Pain nystatin 100,000 unit/gram topical 1 applic topical TID PRN NEEDED 02/25/23 05/09/23 History powder doxycycline hyclate 100 mg capsule 100 mg PO BID 05/09/23 05/09/23 History [id number]-[id number] ac 400 1 tab PO QAM 05/09/23 05/09/23 History mcg-calcium carb 500 mg-vit K1 20 mcg tablet (Women's 50 Plus Multivitamin) prednisone 20 mg tablet 40 mg PO DAILY 05/09/23 05/09/23 History Patient History Medical History Ambulatory dysfunction Asthma DOES NOT USE INH. REPORTS USING NEB TREATMENTS BID. Bilateral lower extremity edema Cardiac murmur does not follow w/ cardio; echo 11/2017 [place] Cerebral palsy Chronic back pain Chronic pain Dark stools Diplopia reports intermittent x 1-2 weeks. pt reports PCP aware and scheduled for brain MRI 03/11 at [place]. 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 Major depressive disorder, recurrent, moderate Morbid obesity with BMI of 50.0-59.9, adult Obstructive sleep apnea CPAP + OXYGEN AT 2 LPM @ NIGHT On home oxygen therapy 2 LPM @ NIGHT + CPAP Osteoarthritis Pancreatic cyst Poor historian SOB (shortness of breath) on exertion Venous insufficiency Wheelchair bound Surgical History H/O wisdom tooth extraction History of Achilles tendon repair History of section History of colonoscopy History of dilatation and curettage History of esophagogastroduodenoscopy (EGD) EUS 02/22/2019 [facility] History of hip surgery History of strabismus surgery History of tooth extraction Family History Father Family history of diabetes mellitus Myocardial infarction, Onset Age: 61 Mother Myocardial infarction, Onset Age: 72 Sister Myocardial infarction Social History Smoking Status: Never smoker Second Hand Exposure: No; Do You Dip or Chew Tobacco: No; Tobacco Cessation Education Requested by Patient: No Hx Alcohol Use: No Hx Substance Use: No Preferred Language: Cantonese Swedish Communication Ability: Effective Communication Ability Comment: Cerberal Palsy Group Home Worker Required: No Beliefs That Will Affect Care: None marital status: Current Living Situation: Spouse Current Living Situation Comment: Reports home health assists 5 times a week Other Information That Helps Us Care for You: No Feels Safe at Home: Yes Safety Concerns: Feels Safe At This Time Assistive Devices: CPAP, Hospital Bed, Mechanical Lift, Oxygen - at Night, Scooter/Electric Scooter and Wheelchair Review of System Constitutional: as per Subjective / HPI, + fatigue and + weakness Respiratory: as per Subjective / HPI and + dyspnea on exertion Physical Exam Constitutional: WD/WN, vitals as above well developed and well nourished Eyes: EOM intact bilaterally Respiratory: normal respiratory effort Results & Data Vital Signs (Past 12 Hours) Vital Signs Temp Pulse Pulse Resp BP Pulse Ox O2 Del Method 05/11/23 08:00 74 05/11/23 08:00 Nasal Cannula 05/11/23 11:50 37.0 C 85 18 120/79 95 Nasal Cannula 05/11/23 11:02 79 17 93 Nasal Cannula 05/11/23 08:23 37.0 C 77 18 126/88 92 Nasal Cannula 05/11/23 06:59 75 17 93 Nasal Cannula 05/11/23 03:40 37.2 C 79 18 107/71 94 Nasal Cannula O2 Flow Rate 05/11/23 08:00 05/11/23 08:00 05/11/23 11:50 3 05/11/23 11:02 3 05/11/23 08:23 3 05/11/23 06:59 3 05/11/23 03:40 3.0 Laboratory Results ESBL K pne E faecalis RX M.I.C. RX M.I.C. --- --------- --- --------- Amox/Clav S <=8/4 Ampicillin S <=2 Amp/Sul I 16/8 Cefazolin R >16 Cefepime R >16 Cefotaxime R >16 Ceftriaxone R >2 Ciprofloxacin S <=0.25 I 2 Daptomycin S 2 Ertapenem S <=0.5 Gentamicin S <=4 Gent Synergy S <=500 Levofloxacin S <=0.5 S 2 Meropenem S <=1 Nitrofurantoin I 64 S <=32 Penicillin S 2 Strep Synergy S <=1000 Tetracycline R >8 Tobramycin S <=4 Trimeth/Sulfa R >2/38 Pip/Tazo S <=16 Vancomycin S 2 Enterococcus faecalis: Positive Combo 33 Streptomycin Synergy Screen S Gentamicin Synergy Screen S S = SENSITIVE I = INTERMEDIATE R = RESISTANT Diagnostic Findings IMPRESSION: 1. Moderate right lower lobe airspace opacity with volume loss. This could reflect pneumonia or atelectasis. Radiographic follow-up to ensure resolution is recommended. 2. Cardiomegaly. No evidence for pulmonary edema.
--- NOTE | 2023-05-11 15:03 | Fluoroscopy Report ---
MODIFIED BARIUM SWALLOW CLINICAL HISTORY: assess for aspiration COMPARISON STUDY: None. FLUOROSCOPY TIME: 1.45 minutes. Ka, r: 19 mGy. TECHNIQUE: A modified barium swallow was performed in conjunction with Speech Pathology. The patient ingested varying consistencies of barium containing material. Video fluoroscopy was performed. FINDINGS: This exam was mildly compromised given difficulty positioning. No tracheal aspiration was i dentified with thin liquids, nectar thick liquids, pudding or cracker with pudding consistency. Penet ration was noted with multiple consistencies. Residuals were noted with crackers and cracker pudding consistencies. Epiglottic inversion was normal. Laryngeal elevation was normal. IMPRESSION: 1. Exam mildly compromised given difficulty positioning. However, no tracheal aspiration identified. Penetration with multiple consistencies. 2. Full recommendations by Speech pathology to follow. ACT 112: Negative or not required by law. Electronically signed by: Lucas Lambert M.D. 05/11/2023 3:02 PM
[2023-05-11] MEDS ORDERED: VANCOMYCIN CONSULT ACTIVE PRN (15:22)
[2023-05-11] MEDS ORDERED: VANCOMYCIN HCL 2,500 MG in SODIUM CHLORIDE 0.9% 500 ML IV SCH (16:00)
[2023-05-11] MEDS: ATORVASTATIN 40 MG TAB PO SCH (20:32)
[2023-05-11] MEDS: ERTAPENEM SODIUM 1,000 MG in SYRINGE 0 ML IV SCH (22:38)
[2023-05-12] MEDS: LINACLOTIDE 145 MCG CAPSULE PO SCH (05:02)
[2023-05-12] MEDS: LEVOTHYROXINE SODIUM 150 MCG TABLET PO SCH (05:43)
[2023-05-12 06:29] LABS: Hematocrit (blood only) 30.6 % (37.0-47.0); Hemoglobin 9.8 g/dl (12.0-16.0); Mean Corpuscular Hemoglobin 36.3 pg (25.0-34.0); Mean Corpuscular Volume 113.3 fL (80.0-100.0); Mean Platelet Volume 12.6 fL (9.4-12.4); Nucleated RBC # (auto) 0.02 K/uL (0.00-0.12); Nucleated RBC % (auto) 0.3 %; Platelet Count 65 K/uL (130-400); RDW Coefficient of Variation 17.8 % (11.5-14.5); RDW Standard Deviation 74.2 fL (36.4-46.3)
[2023-05-12 06:31] LABS: BUN Creatinine Ratio 36.7 (10-20); Calcium 8.7 mg/dl (8.6-10.3); Creatinine Clr Calc Pharmacy 75.1 ml/min; Est GFR (African American) 89.1 ml/min; Est GFR (Non-African American) 76.9 ml/min; Magnesium 2.1 mg/dl (1.7-2.4); Phosphorus 2.3 mg/dl (2.5-4.9); Potassium 3.9 mmol/L (3.5-5.1)
[2023-05-12 06:38] LABS: Troponin I High Sensitivity 34.8 pg/ml (0-14)
--- NOTE | 2023-05-12 07:19 | XRay Report ---
XR chest 1V portable CLINICAL HISTORY: Shortness of breath. COMPARISON STUDY: Chest CT October 16, 2022. Chest radiograph May 10, 2023. FINDINGS: Right internal jugular [id number] is in place. There is no pneumothorax. Possible small right pleural effusion. Extensive right lower lung airspace opacity with volume loss has progressed. Cardiomegaly is noted. There is no evidence for pulmonary edema. IMPRESSION: 1. Progression of extensive right lower lung airspace opacity with volume loss. This may reflect pneu monia or atelectasis. Continued radiographic follow-up is recommended. 2. Cardiomegaly without evidence for pulmonary edema. ACT 112: Negative or not required by law. Electronically signed by: Lucas Lambert M.D. 05/12/2023 7:16 AM
[2023-05-12] MEDS: ALBUT/IPRATROP 3MG/0.5MG NEB 3 ML VIAL NEB SCH ×4 (07:48→19:48)
[2023-05-12] MEDS: LANTUS PER UNIT CHARGE SQ SCH (08:32)
[2023-05-12] MEDS: ASPIRIN 81 MG CHEW PO SCH (08:32)
[2023-05-12] MEDS: INSULIN ASPART PER UNIT CHARGE SC SCH ×4 (08:33→21:11)
[2023-05-12] MEDS: oxyBUTYnin chloride 5 MG TAB PO SCH ×2 (08:34→21:06)
[2023-05-12] MEDS: FUROSEMIDE 20 MG TAB PO SCH (08:34)
[2023-05-12] MEDS: ESCITALOPRAM OXALATE 20 MG TAB PO SCH (08:34)
[2023-05-12] MEDS: LACTULOSE SYRUP 30 GM/45 ML UDP PO SCH ×3 (08:34→21:06)
[2023-05-12] MEDS: DOXYCYCLINE HYCLATE 100 MG CAP PO SCH ×2 (08:34→21:06)
[2023-05-12] MEDS: SPIRONOLACTONE 25 MG TAB PO SCH (08:34)
[2023-05-12] MEDS: FLUTICASONE/VILANTEROL 200/25MCG 14 PUFFS/INHALER INH SCH (08:35)
[2023-05-12] MEDS: FLUTICASONE PROPIONATE NA SPR 16 GM BTL SCH (08:35)
[2023-05-12] MEDS: PANTOprazole 40 MG TAB PO SCH ×2 (08:35→21:06)
[2023-05-12] MEDS: CETIRIZINE HCL 10 MG TABLET PO SCH (08:36)
[2023-05-12] MEDS: predniSONE 20 MG TAB PO SCH (08:50)
--- NOTE | 2023-05-12 10:15 | Hospitalist Progress Note ---
Date of Service May 12, 2023 Assessment & Plan (1) Acute hypoxemic respiratory failure: Plan: Aspiration pneumonia Reported vomiting episodes at home CXR noted chronic interstitial thickening, bibasilar scarring/atelectasis CT abd/pelvis noted dependent consolidation in right greater than left lower lobes Had coughing bouts while eating and diet changed to pureed Patient and also acknowledged this had worsened in the past week Video swallow study was limited due to difficulty positioning but did show penetration with multiple consistencies TRAFFIC COORDINATOR had recommended continuing pureed with thin liquids However, with deterioration today, TRAFFIC COORDINATOR recommends NPO for now and monitor Aspiration precautions Abdominal pain resolved Urinary Tract Infection UA suggestive of UTI History of ESBL UTI Though patient did not meet 2 SIRS criteria on admission (Had only leukopenia), Sepsis is still a possibility considering possible UTI/pneumonia and lactic acidosis Urine culture growing ESBL Klebsiella and Enterococcus fecalis Lactic acidosis likely due to infectious process in the background of cirrhosis and home metformin. Got IVF bolus, Lactate peaked at 5. Considering history of cirrhosis and abd CT showing moderate ascites, IR evaluated for possible diagnostic tap but noted scant ascites to tap ID recs noted. ID discussed with Pharm today and recommended to continue Ertapenem and vanco for now. Plan to switch to Augmentin once able to do po Plan to stop doxycycline if legionella is negative Hyperkalemia on admission may be related to home potassium/aldactone. Holding home po potassium for now Was reported to have had confusion per on day of admission CT head did not show any acute abnormalities Encephalopathy may be related to current illness Hypotension BP was low on admission. Hypotension resolved for now Home nadolol on hold NAFLD Cirrhosis Continue lactulose On lasix, aldactone Continue to hold home potassium for now Mood disorder Fibromyalgia Continue home medication Hyperlipidemia On atorvastatin Chronic pancytopenia Likely secondary to cirrhosis Gets regular PRBC approximately every 2 weeks per patient via chest port Hemoglobin at baseline Monitor Hypothyroidism Continue levothyroxine Diabetes mellitus Hold home antidiabetic agents Continue ISS per protocol Monitor Elevated troponin Maybe due to demand ischemia from infection TTE noted technically difficult, conc LVH, EF 65-70%, mildly dilated LA Card consulted in viewed of NSVT Metoprolol started by Cardiology. Will monitor DVT prophylaxis. SCDs RE thrombocytopenia Full code Palliative consult for [facility] Patient requesting updates from providers. Mr. Syed Bustos, contact numbers [phone]. I spent a total of 55 minutes coordinating, documenting and providing care for this patient excluding time spent in performance of separately billed services Admission and Anticipated Discharge Date Admission Date: May 09, 2023 Subjective Patient seen and examined Had NSVT this AM on tele Increasing oxygen requirement today upto 6L/min She reports cough, shortness of breath Denied dizziness, headache Denied nausea, vomiting, abd pain Reports weakness Physical Exam Constitutional: + ill appearing, + well hydrated and + obese; no acute distress Eyes: PERRL, conjunctivae normal, anicteric sclerae ENMT: external ear and nose normal, oropharynx normal Respiratory: normal respiratory effort; no respiratory distress +rhonchi. Nasal cannula at 6l/min Cardiovascular: Rate/Rhythm: regular rate and regular rhythm S1 S2 Gastrointestinal (Abdomen): normal bowel sounds, soft, nontender, no hepatosplenomegaly Musculoskeletal: +pedal edema Neurologic: PERRL, EOMI, accommodation nl, no face palsy, no dysarthria Psychiatric: A+Ox3, euthymic affect Results & Data Results & Data Vital Signs (Past 12 Hours) Vital Signs Temp Pulse Pulse Resp BP Pulse Ox Pulse Ox 05/12/23 08:05 81 20 93 05/12/23 07:49 36.9 C 78 20 126/63 91 05/12/23 06:19 93 05/12/23 06:18 78 24 147/82 H 93 05/12/23 02:49 36.8 C 71 24 134/64 94 05/11/23 23:00 76 05/11/23 23:30 05/11/23 23:27 37 C 73 22 122/90 94 O2 Del Method O2 Del Method O2 Flow Rate O2 Flow Rate 05/12/23 08:05 Nasal Cannula 3 05/12/23 07:49 Nasal Cannula 6 05/12/23 06:19 Nasal Cannula 6 05/12/23 06:18 Nasal Cannula 6 05/12/23 02:49 Nasal Cannula 4 05/11/23 23:00 05/11/23 23:30 Nasal Cannula 3 05/11/23 23:27 Nasal Cannula 3 Laboratory Results Abnormal lab results 05/11/23 05/11/23 05/12/23 Range/Units 16:25 20:31 06:00 RBC 2.70 L (4.20-5.40) M/uL Hgb 9.8 L (12.0-16.0) g/dl Hct 30.6 L (37.0-47.0) % MCV 113.3 H (80.0-100.0) fL MCH 36.3 H (25.0-34.0) pg RDW Std Deviation 74.2 H (36.4-46.3) fL RDW Coeff of Bradley 17.8 H (11.5-14.5) % Plt Count 65 L (130-400) K/uL MPV 12.6 H (9.4-12.4) fL Chloride (98-107) mmol/L BUN (6-23) mg/dl BUN/Creatinine Ratio (10-20) Glucose (70-99(Fasting)) mg/dl POC Glucose 228 H 225 H (70-99) mg/dl Phosphorus (2.5-4.9) mg/dl Troponin I High Sens (0-14) pg/ml 05/12/23 05/12/23 05/12/23 Range/Units 06:00 07:27 11:07 RBC (4.20-5.40) M/uL Hgb (12.0-16.0) g/dl Hct (37.0-47.0) % MCV (80.0-100.0) fL MCH (25.0-34.0) pg RDW Std Deviation (36.4-46.3) fL RDW Coeff of Bradley (11.5-14.5) % Plt Count (130-400) K/uL MPV (9.4-12.4) fL Chloride 113 H (98-107) mmol/L BUN 29 H (6-23) mg/dl BUN/Creatinine Ratio 36.7 H (10-20) Glucose 159 H (70-99(Fasting)) mg/dl POC Glucose 160 H 180 H (70-99) mg/dl Phosphorus 2.3 L (2.5-4.9) mg/dl Troponin I High Sens 34.8 H (0-14) pg/ml
--- NOTE | 2023-05-12 10:46 | Cardiology Consultation ---
Date of Consultation May 12, 2023 Assessment & Plan (1) Ventricular tachyarrhythmia: (2) Acute respiratory failure with hypoxia: (3) Aspiration pneumonia: (4) Sepsis: Plan IMPRESSION: Medically complex 68 year old female admitted for hypoxic respiratory failure secondary to aspiration pneumonia, sepsis, and UTI. VT >1 min this morning on telemetry- per nursing asymptomatic. Electrolytes WNL. On nadolol as an outpatient for NAFLD- currently on hold PLAN: Ventricular tachycardia: Ventricular ectopy likely being driven by underlying acute illness. Start metoprolol succinate 12.5 mg BID for suppression of ventricular ectopy. Monitor on telemetry while inpatient Trend renal function- potassium goal of 4.0 and mag of 2.0- replace as necessary. Treat underlying hypoxia/pneumonia per primary team. Case discussed with Dr. Hagen- will follow. Supervising Physician Co-Signing Physician Notes Patient was seen and personally examined, chart and telemetry reviewed Assessment and plan as outlined Episode of nonsustained ventricular tachycardia on monitor early a.m. this morning Suspect being driven by underlying hypoxia and respiratory issues question hypoventilation We will begin beta-roxana if sustained arrhythmias occur could consider amiodarone Echocardiogram demonstrated grossly preserved LV systolic function History of Present Illness Reason for Consultation: Ventricular tachycardia Requesting Physician: Chance Slate Cutter Attending Physician: Leesa Mcarthur MD History of Present Illness Medically complex 68 year old female who initially presented to [facility] ED on 05/09 due to cough and worsening dyspnea +nausea/vomiting x1 week. Patient dx with hypoxic respiratory failure secondary to aspiration pneumonia and possible sepsis. UA was also suggestive of UTI. Currently being treated with IV antibiotics. Echo 05/10/2023: Technically difficult study. LVEF 65-70%, moderate concentric LVH, possible moderate . Cardiology consulted today due to episodes of ventricular tachycardia on telemetry. At approximately 05:53 till 05:54am patient had a run of VT then 2-3 short salvos of VT there to follow. Per nursing patient was asymptomatic. Otherwise tele revealing NSR 70-80s. Patient evaluated at bedside, appears acutely ill. ROS limited due to cognitive status. Notable shortness of breath at rest. +cough. Requiring supplemental o2. Per nursing- able to take pills, crushed in apple sauce. 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 Type 2 DM on insulin 12. ALEC- follows with heme for iron infusions. Allergies Allergy/AdvReac Type Severity Reaction Status Date / Time adhesive tape Allergy Intermediate ITCHING Verified 05/09/23 21:28 Penicillins Allergy Intermediate Rash Verified 05/09/23 21:28 perflutren AdvReac Intermediate LOWER BACK Verified 05/09/23 21:28 PAIN Home Medications Medication Instructions Recorded Confirmed Type albuterol sulfate 2.5 mg/3 mL 2.5 mg inhalation Q6H PRN Wheezing 04/30/22 05/09/23 History (0.083 %) solution for nebulization aspirin 81 mg chewable tablet 81 mg PO DAILY 04/30/22 05/09/23 History atorvastatin 80 mg tablet 80 mg PO PM 04/30/22 05/09/23 History escitalopram oxalate 20 mg tablet 20 mg PO DAILY 04/30/22 05/09/23 History fluticasone propionate 50 2 spray intranasal DAILY 04/30/22 05/09/23 History mcg/actuation nasal spray,suspension (Flonase Allergy Relief) furosemide 20 mg tablet 20 mg PO DAILY 04/30/22 05/09/23 History gabapentin 300 mg capsule 300 mg PO BID 04/30/22 05/09/23 History gabapentin 300 mg capsule 600 mg PO QPM 04/30/22 05/09/23 History insulin aspart U-100 100 unit/mL See Rx Instructions .Route .COMPLEX 04/30/22 05/09/23 History (3 mL) subcutaneous pen (Novolog FlexPen U-100 Insulin aspart) insulin glargine 100 unit/mL (3 46 unit subcut DAILY 04/30/22 05/09/23 History mL) subcutaneous pen (Lantus Solostar U-100 Insulin) isosorbide mononitrate 30 mg 30 mg PO DAILY 04/30/22 05/09/23 History tablet,extended release 24 hr lidocaine-prilocaine 2.5 %-2.5 % 1 applic topical DIRECTED PRN 04/30/22 05/09/23 History topical cream MEDI-PORT nadolol 40 mg tablet 40 mg PO DAILY 04/30/22 05/09/23 History pantoprazole 20 mg tablet,delayed 40 mg PO BID 04/30/22 05/09/23 History release potassium chloride 10 mEq 10 meq PO QAM 04/30/22 05/09/23 History tablet,extended release silver sulfadiazine 1 % topical 1 applic topical DAILY apply to 04/30/22 05/09/23 History cream wound spironolactone 25 mg tablet 50 mg PO DAILY 04/30/22 05/09/23 History trazodone 50 mg tablet 50 mg PO HS 04/30/22 05/09/23 History metformin 500 mg tablet,extended 500 mg PO DAILY 06/04/22 05/09/23 History release 24 hr lactulose 20 gram/30 mL oral 30 g (45 mL) PO TID #1,200 mL 06/08/22 05/09/23 Rx solution dulaglutide 4.5 mg/0.5 mL 4.5 mg subcut WK 09/21/22 05/09/23 History subcutaneous pen injector (Trulicity) levothyroxine 150 mcg tablet 150 mcg PO DAILYBB 09/21/22 05/09/23 History oxybutynin chloride 5 mg tablet 5 mg PO BID 09/21/22 05/09/23 History benzonatate 200 mg capsule 200 mg PO TID PRN Cough 02/25/23 05/09/23 History cetirizine 10 mg tablet (Zyrtec) 5 mg PO DAILY 02/25/23 05/09/23 History docusate sodium 100 mg capsule 100 mg PO DAILY 02/25/23 05/09/23 History fluticasone 250 mcg-salmeterol 50 1 inh inhalation BID 02/25/23 05/09/23 History mcg/dose blistr powdr for inhalation (Advair Diskus) linaclotide 290 mcg capsule 290 mcg PO DAILYBB 02/25/23 05/09/23 History (Linzess) nitroglycerin 0.4 mg sublingual 0.4 mg sublingual DIRECTED PRN 02/25/23 05/09/23 History tablet (Nitrostat) Chest Pain nystatin 100,000 unit/gram topical 1 applic topical TID PRN NEEDED 02/25/23 05/09/23 History powder doxycycline hyclate 100 mg capsule 100 mg PO BID 05/09/23 05/09/23 History umlexkbi-fqr-nwsat ac 400 1 tab PO QAM 05/09/23 05/09/23 History mcg-calcium carb 500 mg-vit K1 20 mcg tablet (Women's 50 Plus Multivitamin) prednisone 20 mg tablet 40 mg PO DAILY 05/09/23 05/09/23 History Patient History Medical History Ambulatory dysfunction Asthma DOES NOT USE INH. REPORTS USING NEB TREATMENTS BID. Bilateral lower extremity edema Cardiac murmur does not follow w/ cardio; echo 11/2017 [facility] Cerebral palsy Chronic back pain Chronic pain Dark stools Diplopia reports intermittent x 1-2 weeks. pt reports PCP aware and scheduled for brain MRI 03/11 at [facility]. 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 Major depressive disorder, recurrent, moderate Morbid obesity with BMI of 50.0-59.9, adult Obstructive sleep apnea CPAP + OXYGEN AT 2 LPM @ NIGHT On home oxygen therapy 2 LPM @ NIGHT + CPAP Osteoarthritis Pancreatic cyst Poor historian SOB (shortness of breath) on exertion Venous insufficiency Wheelchair bound Surgical History H/O wisdom tooth extraction History of Achilles tendon repair History of section History of colonoscopy History of dilatation and curettage History of esophagogastroduodenoscopy (EGD) EUS 02/22/2019 [facility] History of hip surgery History of strabismus surgery History of tooth extraction Family History Father Family history of diabetes mellitus Myocardial infarction, Onset Age: 61 Mother Myocardial infarction, Onset Age: 72 Sister Myocardial infarction Social History Smoking Status: Never smoker Second Hand Exposure: No; Do You Dip or Chew Tobacco: No; Tobacco Cessation Education Requested by Patient: No Hx Alcohol Use: No Hx Substance Use: No Preferred Language: [place]ones[place] Citizen [place] Communication Ability: Effective Communication Ability Comment: Cerberal Palsy Procurement Analyst Required: No Beliefs That Will Affect Care: None marital status: Current Living Situation: Spouse Current Living Situation Comment: Reports home health assists 5 times a week Other Information That Helps Us Care for You: No Feels Safe at Home: Yes Safety Concerns: Feels Safe At This Time Assistive Devices: CPAP, Hospital Bed, Mechanical Lift, Oxygen - at Night, Scooter/Electric Scooter and Wheelchair Review of Systems Review of Systems: Unobtainable due to cognitive status Physical Exam Constitutional: + ill appearing and + morbidly obese; no acute distress Respiratory: + labored breathing, + cough and + tachypneic Auscultation: + rhonchi and + wheezes Cardiovascular: Rate/Rhythm: regular rate and regular rhythm Extremities: + edema (BLLE lymphadema) Results & Data Vital Signs (Past 12 Hours) Vital Signs Temp Pulse Pulse Resp BP Pulse Ox Pulse Ox 05/12/23 08:05 81 20 93 05/12/23 07:49 36.9 C 78 20 126/63 91 05/12/23 06:19 93 05/12/23 06:18 78 24 147/82 H 93 05/12/23 02:49 36.8 C 71 24 134/64 94 05/11/23 23:00 76 05/11/23 23:30 05/11/23 23:27 37 C 73 22 122/90 94 O2 Del Method O2 Del Method O2 Flow Rate O2 Flow Rate 05/12/23 08:05 Nasal Cannula 3 05/12/23 07:49 Nasal Cannula 6 05/12/23 06:19 Nasal Cannula 6 05/12/23 06:18 Nasal Cannula 6 05/12/23 02:49 Nasal Cannula 4 05/11/23 23:00 05/11/23 23:30 Nasal Cannula 3 05/11/23 23:27 Nasal Cannula 3 Laboratory Results Cardiac Enzymes 05/12/23 Range/Units 06:00 Troponin I High Sens 34.8 H (0-14) pg/ml CBC 05/12/23 Range/Units 06:00 WBC 6.20 (4.8-10.8) K/ul RBC 2.70 L (4.20-5.40) M/uL Hgb 9.8 L (12.0-16.0) g/dl Hct 30.6 L (37.0-47.0) % Plt Count 65 L (130-400) K/uL Comprehensive Metabolic Panel 05/12/23 Range/Units 06:00 Sodium 142 (136-145) mmol/L Potassium 3.9 (3.5-5.1) mmol/L Chloride 113 H (98-107) mmol/L Carbon Dioxide 23 (21-32) mmol/L BUN 29 H (6-23) mg/dl Creatinine 0.79 (0.6-1.2) mg/dl Glucose 159 H (70-99(Fasting)) mg/dl Calcium 8.7 (8.6-10.3) mg/dl Intake and Output 05/11/23 05/12/23 05/12/23 22:59 06:59 14:59 Intake Total 910 / 940 30 / 940 Output Total 400 / 1101 701 / 1101 Balance 510 / -161 -671 / -161 Intake: IV 550 / 550 Vancomycin HCl 2,500 mg In 550 / 550 Sodium Chloride 0.9% 500 ml @ 180 mls/hr IV TODAY@1600 [facility] Rx #:[id number] Oral 360 / 390 30 / 390 Output: Urine 550 / 550 Urine Amount (Catheter) 400 / 550 150 / 550 External 150 / 150 Cline/Indwelling 400 / 400 # Bowel Movements Other: Weight 106.2 kg Weight Measurement Method Built in [facility] (4) Sepsis Sepsis acute organ dysfunction status: unspecified Sepsis type: sepsis due to unspecified organism Qualified Code(s): A41.9 - Sepsis, unspecified organism
--- NOTE | 2023-05-12 10:52 | Pharmacy Report ---
Pharmacy Vanc AUC Short Note - Date of Service May 12, 2023 - Assessment & Plan Assessment * 68 year old F receiving VANCOMYCIN + DOXYCYCLINE + ERTAPENEM for treatment of complicated UTI / aspiration PNA. Pharmacy has been consulted to dose vancomycin. * Pertinent microbiologic data includes: Positive MRSA Nasal Swab; urine culture growing enterococcus faecalis (susceptible PCN, ampicillin, vancomycin, daptomycin, levofloxacin) as well as ESBL klebsiella (susceptible ertapenem), procal elevation 0.97 05/09. * Day # 2 of VANCOMYCIN * ID is consulted Plan Vancomycin * AUC/BRADFORD is the preferred PK/PD target for vancomycin * AUC guided dosing is effective and associated with decreased risk of nephrotoxicity compared to traditional trough targets * Loading dose: 2500mg x 1 given 831 PM * Begin maint dose: 1500mg Q 24 hr at 1600 today. This regimen is estimated to produce AUC24 b/w 400-600 with ~8% risk of nephrotoxicity * Will assess level on: 9/3 AM should therapy continue Pharmacy will continue to follow and will adjust dose/frequency as necessary. Thank you.
[2023-05-12] MEDS: DOCUSATE SODIUM 100 MG CAP PO SCH (10:53)
[2023-05-12] MEDS ORDERED: METOPROLOL SUCC 25MG EXT REL TAB PO SCH (11:30)
--- NOTE | 2023-05-12 11:47 | Palliative Care Consultation ---
Date of Consultation May 12, 2023 Assessment & Plan (1) Dyspnea and respiratory abnormalities: (2) Cough productive of purulent sputum: (3) Aspiration into respiratory tract: (4) Palliative care by specialist: Met with pt at bedside. Provided overview of Palliative Medicine, a subspecialty that provides specialized medical care for people living with a serious illness by offering a focus on quality of life. Palliative Medicine is often conflated with hospice: I advised patient/family that Palliative and hospice can be partners but we are not the same. It is important to understand the difference so that we may be informed, and not afraid. Palliative Medicine works to improve QOL through reduction of symptom burden/more control over their illness, for both the patient and family. Palliative medicine clinicians are board certified, specially-trained and another member of the patient's medical care team. We often provide an extra layer of support because our care is based on the needs of the patient, not the prognosis; as such, it's appropriate at any age/advancing stage of a serious illness and can be provided along with curative treatment. Palliative Medicine clinicians are also trained in advanced communication methodologies, to facilitate complex discussions about advanced illness planning, which are needed to help assure that the treatment choices match the patient's goals, aka delivering Goal Concordant care. Finally, we discussed that hospice is a visiting nurse service that focuses on care delivered at the very end of life for patients with terminal illness, with life expectancy less than 6 month. (5) Advanced care planning/counseling discussion: 40-minute [id number] advance care planning discussion was held with patient at the bedside. There was no other family present. She feels that she has a fixable problem. She notes that her symptoms began relatively recent, approximately 1 week before admission. She does not feel that this is an unfixable problem. She believes that there may be some therapy or interventions that will improve her swallowing. She cannot identify a reason why her swallow is impaired. She states that she would be willing to do speech therapy if needed but when questioned about a feeding tube, she indicated that she would not want to have a feeding tube placed. We reviewed that all chronic/progressive disease has a declining trajectory over time where facets of patient self- identity and independence are lost. Every acute event leads to a further decline, resulting- many times, in a new baseline. Advised that the greatest priority is to determine what matters most to pt, then family and to develop a plan of care that is aligned with those priorities. We discussed CODE STATUS and I reviewed CPR survival: Only about 10% of patients who have elz-af-dstozjav sudden cardiac arrest survive to hospital discharge, with many survivors having neurologic impairment. This rate is even lower among patients with serious coexisting conditions, ie chance of survival to hospital discharge for in-hospital CPR in older people is low to moderate (15%) and decreases with age, comorbidities, performance status and frailty: for pts > 70 yo, more than half of the patients who initially survived resuscitation in the hospital before hospital discharge. The pooled survival to discharge after in-hospital CPR was 18% for patients between 70 and 79 years old, 15% for patients between 80 and 89 years old and 11% for patients of 90 years and older. (Milton PERAZA, Saravanan LJ, Amy F, et al. Trends in short- and long-term survival among zpx-ii-[id number] cardiac arrest patients alive at hospital arrival. Cir culation 2014;130:3163-9036. AND Freddy C, Simon T, Patrick R, et al. Performance of clinical risk scores to predict mortality and neurological outcome in cardiac arrest patients. Resuscitation 2019;136:21-29.) For now, patient insists on having "at least 1 round of everything to try and bring me back." When asked if she would want aggressive interventions like CPR and mechanical intubation if it was felt that she was in a clear end-of-life process, she replied " I would still want them to try 1 time to bring me back." Plan * Patient believes that her swallow issues can be improved. How this is possible is more of an issue. She has not tolerated dietary texture changes and continues to demonstrate overt aspiration. She remains on n.p.o. status with just sips of water and ice chips. * She desires to remain a full code as outlined above in the advance care planning discussion. * Further information will be required with regards to what options are available to patient at this junction. Is unclear to me at this time if we can do a video swallow to gather more information. Her respiratory status overall remains tenuous. She wishes to remain a full code and wants to have a trial of advanced and escalated medical therapies to try and save her. She is not ready or willing to consider any issues with regards to an advanced or end-of-life planning process. Additionally, she does not perceive any of her issues to be of an advanced or indicative of an end-of-life issue. * I have updated the primary team and nursing. * Please note: the above document was generated using voice recognition software. It may contain unintentional grammatical, syntax or spelling errors. Any formal questions or concerns about the content, text or information contained within the body of this dictation should be directly addressed to the provider for clarification. Thank you for allowing us to participate in the ongoing care of this patient. Please don't hesitate to call or page with any additional concerns. Dr. Rachel Giles DNP Director, Palliative Care History of Present Illness Reason for Consultation: Goals of care. Aspn. Hypoxia. Comorbidities Attending Physician: Leesa Mcarthur MD History of Present Illness Shaina Bustos is a 68yo female who came to [facility] ED 05/09/23 via EMS for worsening dyspnea with cough and inc sputum SO2 room air 60% Pt was able to tell ED teams she had episode of emesis which preceded her symptom onset. Per staff, there is some concern she may not be completely or thoroughly chewing her food. CXR noted chronic interstitial thickening, bibasilar scarring/atelectasis CT abd/pelvis noted dependent consolidation in right greater than left lower lobes Aspiration PNA is suspected diet changed to pureed Since admission, pt has been choling with all PO intake along with rising oxygen demands now on 6lpm NC She cannot mobilize her secretions CXR is worsening Liquids modified to mildly thick but sx persisted She is now NPO PMH: cerebral palsy, Thompson cirrhosis, fibromyalgia, obesity, chronic pain, nonambulatory at baseline, migraines, THAD, hyperlipidemia Allergies Allergy/AdvReac Type Severity Reaction Status Date / Time adhesive tape Allergy Intermediate ITCHING Verified 05/09/23 21:28 Penicillins Allergy Intermediate Rash Verified 05/09/23 21:28 perflutren AdvReac Intermediate LOWER BACK Verified 05/09/23 21:28 PAIN Home Medications Medication Instructions Recorded Confirmed Type albuterol sulfate 2.5 mg/3 mL 2.5 mg inhalation Q6H PRN Wheezing 04/30/22 05/09/23 History (0.083 %) solution for nebulization aspirin 81 mg chewable tablet 81 mg PO DAILY 04/30/22 05/09/23 History atorvastatin 80 mg tablet 80 mg PO PM 04/30/22 05/09/23 History escitalopram oxalate 20 mg tablet 20 mg PO DAILY 04/30/22 05/09/23 History fluticasone propionate 50 2 spray intranasal DAILY 04/30/22 05/09/23 History mcg/actuation nasal spray,suspension (Flonase Allergy Relief) furosemide 20 mg tablet 20 mg PO DAILY 04/30/22 05/09/23 History gabapentin 300 mg capsule 300 mg PO BID 04/30/22 05/09/23 History gabapentin 300 mg capsule 600 mg PO QPM 04/30/22 05/09/23 History insulin aspart U-100 100 unit/mL See Rx Instructions .Route .COMPLEX 04/30/22 05/09/23 History (3 mL) subcutaneous pen (Novolog FlexPen U-100 Insulin aspart) insulin glargine 100 unit/mL (3 46 unit subcut DAILY 04/30/22 05/09/23 History mL) subcutaneous pen (Lantus Solostar U-100 Insulin) isosorbide mononitrate 30 mg 30 mg PO DAILY 04/30/22 05/09/23 History tablet,extended release 24 hr lidocaine-prilocaine 2.5 %-2.5 % 1 applic topical DIRECTED PRN 04/30/22 05/09/23 History topical cream MEDI-PORT nadolol 40 mg tablet 40 mg PO DAILY 04/30/22 05/09/23 History pantoprazole 20 mg tablet,delayed 40 mg PO BID 04/30/22 05/09/23 History release potassium chloride 10 mEq 10 meq PO QAM 04/30/22 05/09/23 History tablet,extended release silver sulfadiazine 1 % topical 1 applic topical DAILY apply to 04/30/22 05/09/23 History cream wound spironolactone 25 mg tablet 50 mg PO DAILY 04/30/22 05/09/23 History trazodone 50 mg tablet 50 mg PO HS 04/30/22 05/09/23 History metformin 500 mg tablet,extended 500 mg PO DAILY 06/04/22 05/09/23 History release 24 hr lactulose 20 gram/30 mL oral 30 g (45 mL) PO TID #1,200 mL 06/08/22 05/09/23 Rx solution dulaglutide 4.5 mg/0.5 mL 4.5 mg subcut WK 09/21/22 05/09/23 History subcutaneous pen injector (Trulicity) levothyroxine 150 mcg tablet 150 mcg PO DAILYBB 09/21/22 05/09/23 History oxybutynin chloride 5 mg tablet 5 mg PO BID 09/21/22 05/09/23 History benzonatate 200 mg capsule 200 mg PO TID PRN Cough 02/25/23 05/09/23 History cetirizine 10 mg tablet (Zyrtec) 5 mg PO DAILY 02/25/23 05/09/23 History docusate sodium 100 mg capsule 100 mg PO DAILY 02/25/23 05/09/23 History fluticasone 250 mcg-salmeterol 50 1 inh inhalation BID 02/25/23 05/09/23 History mcg/dose blistr powdr for inhalation (Advair Diskus) linaclotide 290 mcg capsule 290 mcg PO DAILYBB 02/25/23 05/09/23 History (Linzess) nitroglycerin 0.4 mg sublingual 0.4 mg sublingual DIRECTED PRN 02/25/23 05/09/23 History tablet (Nitrostat) Chest Pain nystatin 100,000 unit/gram topical 1 applic topical TID PRN NEEDED 02/25/23 05/09/23 History powder doxycycline hyclate 100 mg capsule 100 mg PO BID 05/09/23 05/09/23 History zmcifzrm-psm-vhvrz ac 400 1 tab PO QAM 05/09/23 05/09/23 History mcg-calcium carb 500 mg-vit K1 20 mcg tablet (Women's 50 Plus Multivitamin) prednisone 20 mg tablet 40 mg PO DAILY 05/09/23 05/09/23 History Patient History Medical History Ambulatory dysfunction Asthma DOES NOT USE INH. REPORTS USING NEB TREATMENTS BID. Bilateral lower extremity edema Cardiac murmur does not follow w/ cardio; echo 11/2017 [place] Cerebral palsy Chronic back pain Chronic pain Dark stools Diplopia reports intermittent x 1-2 weeks. pt reports PCP aware and scheduled for brain MRI 03/11 at [place]. 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 Major depressive disorder, recurrent, moderate Morbid obesity with BMI of 50.0-59.9, adult Obstructive sleep apnea CPAP + OXYGEN AT 2 LPM @ NIGHT On home oxygen therapy 2 LPM @ NIGHT + CPAP Osteoarthritis Pancreatic cyst Poor historian SOB (shortness of breath) on exertion Venous insufficiency Wheelchair bound Surgical History H/O wisdom tooth extraction History of Achilles tendon repair History of section History of colonoscopy History of dilatation and curettage History of esophagogastroduodenoscopy (EGD) EUS 02/22/2019 [facility] History of hip surgery History of strabismus surgery History of tooth extraction Family History Father Family history of diabetes mellitus Myocardial infarction, Onset Age: 61 Mother Myocardial infarction, Onset Age: 72 Sister Myocardial infarction Social History Smoking Status: Never smoker Second Hand Exposure: No; Do You Dip or Chew Tobacco: No; Tobacco Cessation Education Requested by Patient: No Hx Alcohol Use: No Hx Substance Use: No Preferred Language: Cantonese Sami Communication Ability: Effective Communication Ability Comment: Cerberal Palsy Structural Design Engineer Required: No Beliefs That Will Affect Care: None marital status: Current Living Situation: Spouse Current Living Situation Comment: Reports home health assists 5 times a week Other Information That Helps Us Care for You: No Feels Safe at Home: Yes Safety Concerns: Feels Safe At This Time Assistive Devices: CPAP, Hospital Bed, Mechanical Lift, Oxygen - at Night, Scooter/Electric Scooter and Wheelchair Review of Systems Review of Systems: All systems reviewed & are unremarkable except as noted in Subjective Physical Exam Constitutional: + acute distress, + ill appearing and + edematous Eyes: PERRL, conjunctivae normal, anicteric sclerae ENMT: Mouth: + poor dentition Mallampati Class: III Throat: uvula midline Neck: trachea midline, no thyromegaly Respiratory: + respiratory distress (estiven with coughing), + uses accessory muscles, + cough, able to speak in complete sentences and symmetric chest movement Auscultation: + rhonchi (coarse bilat rhonchi, faint wheezing) very bronchitic cough, deep and rattling; pt unable to expectorate secretions Cardiovascular: RRR, no murmur, no edema Gastrointestinal (Abdomen): normal bowel sounds, soft, nontender, no hepatosplenomegaly Musculoskeletal: generalized weakness Skin: pale, cool, scattered ecchymoses Neurologic: AAOx3. garbled speech at times Results & Data Vital Signs (Past 12 Hours) Vital Signs Temp Pulse Resp BP Pulse Ox Pulse Ox O2 Del Method 05/12/23 11:28 78 16 90 Nasal Cannula 05/12/23 11:16 36.9 C 86 21 115/79 90 Nasal Cannula 05/12/23 08:05 81 20 93 Nasal Cannula 05/12/23 07:49 36.9 C 78 20 126/63 91 Nasal Cannula 05/12/23 06:19 93 05/12/23 06:18 78 24 147/82 H 93 Nasal Cannula 05/12/23 02:49 36.8 C 71 24 134/64 94 Nasal Cannula O2 Del Method O2 Flow Rate O2 Flow Rate 05/12/23 11:28 6 05/12/23 11:16 6 05/12/23 08:05 3 05/12/23 07:49 6 05/12/23 06:19 Nasal Cannula 6 05/12/23 06:18 6 05/12/23 02:49 4 Laboratory Results Data reviewed, see HPI Diagnostic Findings Data reviewed, see HPI PG Care Time/CCT Total # of Minutes Spent Total Time Spent: 110 Total Time Spent with Patient: Total time spent is greater than 50% in coordination of care (as documented) at patient's floor/unit and/or counseling patient: I spent 110 minutes overall addressing this case: 15in medical data review/discussion with referring provider(s) and/or preparation for the visit 30 in direct interaction with the patient 40 Advance Care Planning/Goals of Care discussions as detailed above in note (must be >16min) 10 in subsequent review and synthesis of assessment and plan 15 in communicating with other providers regarding the patient's case: Primary team, nursing. Advanced Care Planning 25604 Advanced Care Planning 30 Min 18423 Advanced Care Planning Additional 30 [place] [address] IN/OBS CONSULT LVL 5,80M Patient Type New History Comprehensive Exam Comprehensive Medical Decision Making High Complexity Diagnoses Dyspnea and respiratory abnormalities R06.00; R06.89 Cough productive of purulent sputum R05.8 Aspiration into respiratory tract T17.908A Palliative care by specialist Z51.5 Advanced care planning/counseling discussion Z71.89 Additional Codes Advanced Care Planning - 65965 Advanced Care Planning 30 Min: 11160 Advanced Care Planning 30 Min ([id number]) Advanced Care Planning - 78058 Advanced Care Planning Additional 30 Min: 82100 Advanced Care Planning Additional 30 Min ([id number])
[2023-05-12] MEDS: CEROVITE ADV FORMULA TAB PO SCH (13:35)
[2023-05-12] MEDS: METOPROLOL TARTRATE 1 MG/ML VIAL IV SCH ×2 (15:43→21:05)
[2023-05-12] MEDS: VANCOMYCIN HCL 1,500 MG in SODIUM CHLORIDE 0.9% 500 ML IV SCH (17:32)
[2023-05-12] MEDS: ATORVASTATIN 40 MG TAB PO SCH (21:06)
[2023-05-12] MEDS: ERTAPENEM SODIUM 1,000 MG in SYRINGE 0 ML IV SCH (22:38)
[2023-05-12] MEDS: HEPARIN 100 UNIT/ML 5ML FLUSH FLUSH PRN (23:09)
[2023-05-13] MEDS: METOPROLOL TARTRATE 1 MG/ML VIAL IV SCH ×4 (02:10→19:53)
[2023-05-13] MEDS: ALBUT/IPRATROP 3MG/0.5MG NEB 3 ML VIAL NEB SCH ×4 (07:27→18:56)
[2023-05-13 07:57] LABS: Hematocrit (blood only) 29.9 % (37.0-47.0); Hemoglobin 9.7 g/dl (12.0-16.0); Mean Corpuscular Hemoglobin 36.7 pg (25.0-34.0); Mean Corpuscular Hgb Conc 32.4 g/dL (32.0-36.0); Mean Corpuscular Volume 113.3 fL (80.0-100.0); Mean Platelet Volume 11.7 fL (9.4-12.4); Nucleated RBC # (auto) 0.04 K/uL (0.00-0.12); Nucleated RBC % (auto) 0.8 %; Platelet Count 56 K/uL (130-400); RDW Coefficient of Variation 18.4 % (11.5-14.5); RDW Standard Deviation 74.9 fL (36.4-46.3); Red Blood Count 2.64 M/uL (4.20-5.40); White Blood Count 5.14 K/ul (4.8-10.8)
[2023-05-13] MEDS: LEVOTHYROXINE SODIUM 150 MCG TABLET PO SCH (08:10)
[2023-05-13] MEDS: DOCUSATE SODIUM 100 MG CAP PO SCH (08:10)
[2023-05-13] MEDS: LINACLOTIDE 145 MCG CAPSULE PO SCH (08:10)
[2023-05-13] MEDS: ASPIRIN 81 MG CHEW PO SCH (08:10)
[2023-05-13] MEDS: CETIRIZINE HCL 10 MG TABLET PO SCH (08:10)
[2023-05-13] MEDS: LACTULOSE SYRUP 30 GM/45 ML UDP PO SCH ×3 (08:11→20:03)
[2023-05-13] MEDS: oxyBUTYnin chloride 5 MG TAB PO SCH ×2 (08:11→20:04)
[2023-05-13] MEDS: PANTOprazole 40 MG TAB PO SCH ×2 (08:11→20:04)
[2023-05-13] MEDS: predniSONE 20 MG TAB PO SCH (08:11)
[2023-05-13] MEDS: FUROSEMIDE 20 MG TAB PO SCH (08:11)
[2023-05-13] MEDS: SPIRONOLACTONE 25 MG TAB PO SCH (08:11)
[2023-05-13] MEDS: DOXYCYCLINE HYCLATE 100 MG CAP PO SCH ×2 (08:11→20:03)
[2023-05-13] MEDS: ESCITALOPRAM OXALATE 20 MG TAB PO SCH (08:11)
[2023-05-13] MEDS: INSULIN ASPART PER UNIT CHARGE SC SCH ×3 (08:12→18:12)
[2023-05-13 08:35] LABS: Albumin Level 2.7 gm/dl (3.4-5.0); Calcium 8.8 mg/dl (8.6-10.3); Potassium 3.6 mmol/L (3.5-5.1)
[2023-05-13 08:41] LABS: Albumin Globulin Ratio 0.9 (0.9-2); BUN Creatinine Ratio 37.5 (10-20); Creatinine Clr Calc Pharmacy 79.3 ml/min; Est GFR (African American) 99.7 ml/min; Est GFR (Non-African American) 86.1 ml/min; Globulin 3.1 gm/dl (2.5-4.0); Total Protein 5.8 gm/dl (6.0-8.3)
[2023-05-13] MEDS: FLUTICASONE PROPIONATE NA SPR 16 GM BTL SCH (09:37)
[2023-05-13] MEDS: FLUTICASONE/VILANTEROL 200/25MCG 14 PUFFS/INHALER INH SCH (09:37)
[2023-05-13] MEDS: LANTUS PER UNIT CHARGE SQ SCH (09:37)
--- NOTE | 2023-05-13 11:00 | Hospitalist Progress Note ---
Date of Service May 13, 2023 Assessment & Plan (1) Acute hypoxemic respiratory failure: Plan: Aspiration pneumonia Reported vomiting episodes at home CXR noted chronic interstitial thickening, bibasilar scarring/atelectasis CT abd/pelvis noted dependent consolidation in right greater than left lower lobes Had coughing bouts while eating and diet was initially changed to pureed Video swallow study was limited due to difficulty positioning but did show penetration with multiple consistencies INSPECTOR RAW QUARTZ reevaluated and made NPO on 05/12/23 Aspiration precautions Discussed with INSPECTOR RAW QUARTZ Ruchi today. She will reassess on monday Discussed findings and plans with patient today. We reviewed options at this time. She is ok with NPO till INSPECTOR RAW QUARTZ reeval Gentle maintenance IVF while NPO Urinary Tract Infection Abdominal pain resolved UA suggestive of UTI History of ESBL UTI Though patient did not meet 2 SIRS criteria on admission (Had only leukopenia), Sepsis is still a possibility considering possible UTI/pneumonia and lactic aci dosis Possible Sepsis due to aspiration pneumonia and UTI Urine culture growing ESBL Klebsiella and Enterococcus fecalis Lactic acidosis likely due to infectious process in the background of cirrhosis and home metformin. Lactate peaked at 5. Considering history of cirrhosis and abd CT showing moderate ascites, IR evaluated for possible diagnostic tap but noted scant ascites too small to tap ID recs noted. On 05/12/23, Pharm discussed with ID and recommended to continue Ertapenem and vanco for now. Plan to switch to Augmentin once able to do po Plan to stop doxycycline if legionella is negative Hyperkalemia on admission may be related to home potassium/aldactone. Holding home po potassium for now Was reported to have had confusion per on day of admission CT head did not show any acute abnormalities Encephalopathy may be related to current illness Hypotension BP was low on admission. BP normotensive to low normal Home nadolol on hold NAFLD Cirrhosis On lactulose On lasix, aldactone Continue to hold home potassium for now Po meds on hold today as above Mood disorder Fibromyalgia PO med on hold today as above Hyperlipidemia Po med on hold today as above Chronic pancytopenia Likely secondary to cirrhosis Gets regular PRBC approximately every 2 weeks per patient via chest port Hemoglobin at baseline Monitor Hypothyroidism Will do IV levothyroxine while npo Diabetes mellitus Hold home antidiabetic agents Continue ISS per protocol Monitor Elevated troponin Maybe due to demand ischemia from infection TTE noted technically difficult, conc LVH, EF 65-70%, mildly dilated LA Card consulted in viewed of NSVT on tele on 05/12/23 Metoprolol started by Cardiology. DVT prophylaxis. SCDs RE thrombocytopenia Full code Palliative consult for [facility] Patient requesting updates from providers. Mr. Syed Bustos, contact numbers [phone]. I spent a total of 50 minutes coordinating, documenting and providing care for this patient excluding time spent in performance of separately billed services Admission and Anticipated Discharge Date Admission Date: May 09, 2023 Subjective Patient seen and examined Has cough. Cough is productive of mucus Reports shortness of breath Denied nausea, vomiting, abd pain, fever, chills, chest pain Reports weakness Physical Exam Constitutional: + ill appearing, + well hydrated and + obese; no acute distress Eyes: PERRL, conjunctivae normal, anicteric sclerae ENMT: external ear and nose normal, oropharynx normal Respiratory: normal respiratory effort; no respiratory distress +cough, crackles and transmitted sounds Cardiovascular: Rate/Rhythm: regular rate and regular rhythm S1 S2 Gastrointestinal (Abdomen): normal bowel sounds, soft, nontender, no hepatosplenomegaly Musculoskeletal: +trace pedal edema/stasis changes Neurologic: PERRL, EOMI, accommodation nl, no face palsy, no dysarthria Psychiatric: A+Ox3, euthymic affect Results & Data Results & Data Vital Signs (Past 12 Hours) Vital Signs Temp Pulse Pulse Resp BP BP Pulse Ox 05/13/23 10:50 63 18 92 05/13/23 09:54 59 L 99/61 L 05/13/23 09:39 68 124/79 05/13/23 08:04 36.9 C 69 17 115/70 90 05/13/23 07:28 69 18 91 05/13/23 03:28 36.9 C 69 16 111/68 90 O2 Del Method O2 Flow Rate 05/13/23 10:50 Nasal Cannula 4 05/13/23 09:54 05/13/23 09:39 05/13/23 08:04 Nasal Cannula 4 05/13/23 07:28 Nasal Cannula 4 05/13/23 03:28 Nasal Cannula Laboratory Results Abnormal lab results 05/12/23 05/12/23 05/13/23 Range/Units 16:31 19:58 06:04 RBC (4.20-5.40) M/uL Hgb (12.0-16.0) g/dl Hct (37.0-47.0) % MCV (80.0-100.0) fL MCH (25.0-34.0) pg RDW Std Deviation (36.4-46.3) fL RDW Coeff of Bradley (11.5-14.5) % Plt Count (130-400) K/uL Sodium (136-145) mmol/L Chloride (98-107) mmol/L BUN (6-23) mg/dl BUN/Creatinine Ratio (10-20) Glucose (70-99(Fasting)) mg/dl POC Glucose 197 H 180 H 121 H (70-99) mg/dl Total Bilirubin (0.2-1.0) mg/dl AST (13-39) U/L ALT (7-52) U/L Total Protein (6.0-8.3) gm/dl Albumin (3.4-5.0) gm/dl 05/13/23 05/13/23 Range/Units 07:29 07:29 RBC 2.64 L (4.20-5.40) M/uL Hgb 9.7 L (12.0-16.0) g/dl Hct 29.9 L (37.0-47.0) % MCV 113.3 H (80.0-100.0) fL MCH 36.7 H (25.0-34.0) pg RDW Std Deviation 74.9 H (36.4-46.3) fL RDW Coeff of Bradley 18.4 H (11.5-14.5) % Plt Count 56 L (130-400) K/uL Sodium 146 H (136-145) mmol/L Chloride 117 H (98-107) mmol/L BUN 27 H (6-23) mg/dl BUN/Creatinine Ratio 37.5 H (10-20) Glucose 136 H (70-99(Fasting)) mg/dl POC Glucose (70-99) mg/dl Total Bilirubin 2.0 H (0.2-1.0) mg/dl AST 97 H (13-39) U/L ALT 84 H (7-52) U/L Total Protein 5.8 L (6.0-8.3) gm/dl Albumin 2.7 L (3.4-5.0) gm/dl
[2023-05-13] MEDS: D5W AND NSS 1,000 ML IV SCH (12:38)
[2023-05-13] MEDS: CEROVITE ADV FORMULA TAB PO SCH (12:56)
--- NOTE | 2023-05-13 14:02 | Cardiology Progress Note ---
Date of Service May 13, 2023 Assessment & Plan (1) Ventricular tachyarrhythmia: (2) Acute respiratory failure with hypoxia: (3) Aspiration pneumonia: (4) Sepsis: Plan IMPRESSION: Medically complex 68 year old female admitted for hypoxic respiratory failure secondary to aspiration pneumonia, sepsis, and UTI. Klebsiella pneumoniae ESBL , Enterocossus faecalis on urine culture. No recurrence of wide complex tachycardia since episode that happened 05/12/23 at 5:54 am an lasted 1 minutes. Of note , the QRS complexes are different in appearance than the PVCs noted raising concerns that the tachycardia could be a non-sustained VT or supraventricular tachycardia with aberrant conduction. Electrolytes WNL. On nadolol as an outpatient for NAFLD- currently on hold PLAN: Ventricular tachycardia: Ventricular ectopy likely being driven by underlying acute illness. Patient is on IV metoprolol 2.5 mg IV Q 6 hours will NPO due to concerns of difficulty swallowing / aspiration . Admission and Anticipated Discharge Date Admission Date: May 09, 2023 Subjective Patient seen in cardiology follow up. No complaints. Physical Exam Constitutional: + ill appearing and + morbidly obese; no acute distress Respiratory: + labored breathing, + cough and + tachypneic Auscultation: + rhonchi and + wheezes Cardiovascular: Rate/Rhythm: regular rate and regular rhythm Extremities: + edema (trace bilateral lower extremity edema, venous stasis changes ) Results & Data Vital Signs (Past 12 Hours) Vital Signs Temp Pulse Pulse Resp BP BP Pulse Ox 05/13/23 11:45 36.8 C 65 18 118/73 90 05/13/23 10:50 63 18 92 05/13/23 08:00 70 05/13/23 08:00 05/13/23 09:54 59 L 99/61 L 05/13/23 09:39 68 124/79 05/13/23 08:04 36.9 C 69 17 115/70 90 05/13/23 07:28 69 18 91 05/13/23 03:28 36.9 C 69 16 111/68 90 O2 Del Method O2 Flow Rate 05/13/23 11:45 Nasal Cannula 4 05/13/23 10:50 Nasal Cannula 4 05/13/23 08:00 05/13/23 08:00 Nasal Cannula 4 05/13/23 09:54 05/13/23 09:39 05/13/23 08:04 Nasal Cannula 4 05/13/23 07:28 Nasal Cannula 4 05/13/23 03:28 Nasal Cannula Laboratory Results Cardiac Enzymes 05/13/23 Range/Units 07:29 AST 97 H (13-39) U/L CBC 05/13/23 Range/Units 07:29 WBC 5.14 (4.8-10.8) K/ul RBC 2.64 L (4.20-5.40) M/uL Hgb 9.7 L (12.0-16.0) g/dl Hct 29.9 L (37.0-47.0) % Plt Count 56 L (130-400) K/uL Comprehensive Metabolic Panel 05/13/23 Range/Units 07:29 Sodium 146 H (136-145) mmol/L Potassium 3.6 (3.5-5.1) mmol/L Chloride 117 H (98-107) mmol/L Carbon Dioxide 25 (21-32) mmol/L BUN 27 H (6-23) mg/dl Creatinine 0.72 (0.6-1.2) mg/dl Glucose 136 H (70-99(Fasting)) mg/dl Calcium 8.8 (8.6-10.3) mg/dl AST 97 H (13-39) U/L ALT 84 H (7-52) U/L Alkaline Phosphatase 87 (34-104) U/L Total Protein 5.8 L (6.0-8.3) gm/dl Albumin 2.7 L (3.4-5.0) gm/dl Intake and Output 05/12/23 05/13/23 05/13/23 22:59 06:59 14:59 Intake Total 530 / 630 Output Total 350 / 500 150 / 500 Balance 180 / 130 -150 / 130 Intake: IV 530 / 530 Vancomycin HCl 1,500 mg In 530 / 530 Sodium Chloride 0.9% 500 ml @ 200 mls/hr IV Q24H [facility] Rx#: [id number] Output: Urine 150 / 150 Urine Amount (Catheter) 350 / 350 External 350 / 350 Other: # Unmeasured Voids 1 Weight 99.6 kg Weight Measurement Method Built in [facility] (4) Sepsis Sepsis acute organ dysfunction status: unspecified Sepsis type: sepsis due to unspecified organism Qualified Code(s): A41.9 - Sepsis, unspecified organism
[2023-05-13] MEDS: VANCOMYCIN HCL 1,500 MG in SODIUM CHLORIDE 0.9% 500 ML IV SCH (17:01)
[2023-05-13] MEDS: ATORVASTATIN 40 MG TAB PO SCH (20:03)
--- NOTE | 2023-05-13 21:58 | Electrocardiogram Report ---
Test Reason : Blood Pressure : / mmHG Vent. Rate : 092 BPM Atrial Rate : 092 BPM P-R Int : 218 ms QRS Dur : 096 ms QT Int : 380 ms P-R-T Axes : 049 -10 033 degrees QTc Int : 469 ms Sinus rhythm with sinus arrhythmia with 1st degree A-V block Low voltage QRS Borderline ECG When compared with ECG of 25-FEB-2023 19:06, Criteria for Anterior infarct are no longer Present Criteria for Anterolateral infarct are no longer Present Inferior infarct is no longer Present Confirmed by Fausto Headley ([id number]) on 05/13/2023 9:57:41 PM Referred By: REFERRED SELF Confirmed By:Fausto Headley
[2023-05-13] MEDS: ERTAPENEM SODIUM 1,000 MG in SYRINGE 0 ML IV SCH (23:11)
[2023-05-13] MEDS: HEPARIN 100 UNIT/ML 5ML FLUSH FLUSH PRN (23:18)
[2023-05-14] MEDS: INSULIN ASPART PER UNIT CHARGE SC SCH ×4 (00:51→18:16)
[2023-05-14] MEDS: METOPROLOL TARTRATE 1 MG/ML VIAL IV SCH ×4 (02:05→21:20)
[2023-05-14] MEDS: HEPARIN 100 UNIT/ML 5ML FLUSH FLUSH PRN (05:24)
[2023-05-14 05:55] LABS: Hematocrit (blood only) 31.2 % (37.0-47.0); Hemoglobin 9.8 g/dl (12.0-16.0); Mean Corpuscular Hemoglobin 36.6 pg (25.0-34.0); Mean Corpuscular Hgb Conc 31.4 g/dL (32.0-36.0); Mean Corpuscular Volume 116.4 fL (80.0-100.0); Mean Platelet Volume 12.8 fL (9.4-12.4); Nucleated RBC # (auto) 0.06 K/uL (0.00-0.12); Nucleated RBC % (auto) 1.1 %; Platelet Count 70 K/uL (130-400); RDW Coefficient of Variation 18.3 % (11.5-14.5); Red Blood Count 2.68 M/uL (4.20-5.40)
[2023-05-14 06:02] LABS: BUN Creatinine Ratio 34.4 (10-20); C Reactive Protein 3.27 mg/dl (0-0.5); Calcium 8.5 mg/dl (8.6-10.3); Creatinine Clr Calc Pharmacy 91.8 ml/min; Est GFR (African American) 106.3 ml/min; Est GFR (Non-African American) 91.7 ml/min; Phosphorus 2.2 mg/dl (2.5-4.9); Potassium 3.4 mmol/L (3.5-5.1)
[2023-05-14] MEDS: LINACLOTIDE 145 MCG CAPSULE PO SCH (06:25)
[2023-05-14] MEDS: ALBUT/IPRATROP 3MG/0.5MG NEB 3 ML VIAL NEB SCH ×4 (07:19→18:55)
[2023-05-14] MEDS ORDERED: POTASSIUM PHOS 3 MMOL/1 ML INFUSION IV STA (07:42)
[2023-05-14] MEDS ORDERED: POTASSIUM PHOSPHATE 15 MMOL in SODIUM CHLORIDE 0.9% 250 ML IV ONE (08:00)
[2023-05-14] MEDS: D5W AND NSS 1,000 ML IV SCH ×2 (09:11→09:56)
[2023-05-14] MEDS: LANTUS PER UNIT CHARGE SQ SCH (09:18)
[2023-05-14] MEDS: FLUTICASONE PROPIONATE NA SPR 16 GM BTL SCH (09:22)
[2023-05-14] MEDS: FLUTICASONE/VILANTEROL 200/25MCG 14 PUFFS/INHALER INH SCH (09:22)
[2023-05-14] MEDS: LEVOTHYROXINE SODIUM 75 MCG in SYRINGE 0 ML IV SCH (09:55)
--- NOTE | 2023-05-14 09:55 | Hospitalist Progress Note ---
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 Lactate peaked at 5. Considering history of cirrhosis and abd CT showing moderate ascites, IR evaluated for possible diagnostic tap but noted scant ascites too small to tap ID recs noted. On 05/12/23, Pharm discussed with ID and recommended to continue Ertapenem and vanco for now. Plan to switch to Augmentin once able to do po Plan to stop doxycycline if legionella is negative Hyperkalemia on admission may be related to home potassium/aldactone. Hypokalemia and hypophosphatemia today. Replete and monitor Was reported to have had confusion per on day of admission CT head did not show any acute abnormalities Encephalopathy, now resolved, may be related to current illness Hypotension BP was low on admission. Home nadolol on hold NAFLD Cirrhosis On lactulose On lasix, aldactone Continue to hold home potassium for now Po meds on hold today as above Mood disorder Fibromyalgia PO med on hold today as above Hyperlipidemia Po med on hold today as above Chronic pancytopenia Likely secondary to cirrhosis Gets regular PRBC approximately every 2 weeks per patient via chest port Hemoglobin at baseline Monitor Hypothyroidism IV levothyroxine while npo Diabetes mellitus Hold home antidiabetic agents Continue ISS per protocol Monitor Elevated troponin Maybe due to demand ischemia from infection TTE noted technically difficult, conc LVH, EF 65-70%, mildly dilated LA Card consulted in viewed of NSVT on tele on 05/12/23 Metoprolol started by Cardiology. DVT prophylaxis. Hep sq. Monitor thrombocytopenia Palliative evaluated for GOC. Full code Patient is mostly bedbound at home. Regular turn/skin care Patient requesting updates from providers. Mr. Syed Bustos, contact numbers [phone]. I spent a total of 50 minutes coordinating, documenting and providing care for this patient excluding time spent in performance of separately billed services Admission and Anticipated Discharge Date Admission Date: May 09, 2023 Subjective Patient seen and examined Reports cough and SOB are still present but mildly improved today Denied nausea, vomiting, abd pain, fever, chills, chest pain Reports weakness, pains in toes and back Physical Exam Constitutional: + ill appearing, + well hydrated and + obese; no acute distress Eyes: PERRL, conjunctivae normal, anicteric sclerae ENMT: external ear and nose normal, oropharynx normal Respiratory: normal respiratory effort; no respiratory distress Cardiovascular: Rate/Rhythm: regular rate and regular rhythm Gastrointestinal (Abdomen): normal bowel sounds, soft, nontender, no hepatosplenomegaly Neurologic: PERRL, EOMI, accommodation nl, no face palsy, no dysarthria Psychiatric: A+Ox3, euthymic affect Results & Data Results & Data Vital Signs (Past 12 Hours) Vital Signs Temp Pulse Pulse Resp BP BP Pulse Ox 05/14/23 09:11 65 112/62 05/14/23 08:08 36.8 C 56 L 20 112/62 93 05/14/23 07:19 67 18 93 05/14/23 03:44 36.9 C 61 17 116/63 92 05/14/23 02:40 60 114/60 05/14/23 02:17 05/14/23 02:05 67 131/59 L 05/13/23 22:19 68 05/13/23 23:30 36.9 C 66 21 109/59 L 93 O2 Del Method O2 Flow Rate 05/14/23 09:11 05/14/23 08:08 Nasal Cannula 6 05/14/23 07:19 Nasal Cannula 4 05/14/23 03:44 Nasal Cannula 4 05/14/23 02:40 05/14/23 02:17 Nasal Cannula 05/14/23 02:05 05/13/23 22:19 05/13/23 23:30 Nasal Cannula 6
[2023-05-14 10:30] LABS: Folate (Folic Acid),Ser orPlas 17.38 ng/ml (>5.38)
[2023-05-14] MEDS ORDERED: MoRPHine SULFATE 2 MG/ML CARP IV PRN ×2 (11:04→11:06)
[2023-05-14] MEDS: CETIRIZINE HCL 10 MG TABLET PO SCH (11:07)
[2023-05-14] MEDS: DOCUSATE SODIUM 100 MG CAP PO SCH (11:07)
[2023-05-14] MEDS: ESCITALOPRAM OXALATE 20 MG TAB PO SCH (11:07)
[2023-05-14] MEDS: DOXYCYCLINE HYCLATE 100 MG CAP PO SCH (11:07)
[2023-05-14] MEDS: ASPIRIN 81 MG CHEW PO SCH (11:07)
[2023-05-14] MEDS: oxyBUTYnin chloride 5 MG TAB PO SCH ×2 (11:08→21:21)
[2023-05-14] MEDS: PANTOprazole 40 MG TAB PO SCH ×2 (11:08→21:22)
[2023-05-14] MEDS: FUROSEMIDE 20 MG TAB PO SCH (11:08)
[2023-05-14] MEDS: SPIRONOLACTONE 25 MG TAB PO SCH (11:08)
[2023-05-14] MEDS: LACTULOSE SYRUP 30 GM/45 ML UDP PO SCH ×3 (11:08→21:21)
[2023-05-14] MEDS: LIDOCAINE 5% 1 PATCH TD SCH (11:57)
[2023-05-14] MEDS: CEROVITE ADV FORMULA TAB PO SCH (12:01)
--- NOTE | 2023-05-14 12:50 | Pharmacy Report ---
Pharmacy PK ABX Note - Date of Service May 14, 2023 - Assessment and Plan Assessment 05/14: Sputum from 05/13 with staph species, + MRSA nasal swab. Continues on ertapenem/vancomycin/doxycycline * Random level this morning suggests lower therapeutic achievement, will adjust dose slightly to target higher end of goal range * Renal function has been stable 05/12: 68 year old F receiving VANCOMYCIN + DOXYCYCLINE + ERTAPENEM for treatment of complicated UTI / aspiration PNA. Pharmacy has been consulted to dose vancomycin. * Pertinent microbiologic data includes: Positive MRSA Nasal Swab; urine culture growing enterococcus faecalis (susceptible PCN, ampicillin, vancomycin, daptom ycin, levofloxacin) as well as ESBL klebsiella (susceptible ertapenem), procal elevation 0.97 05/09. * Day # 2 of VANCOMYCIN * ID is consulted Plan Vancomycin * Loading dose: 2500 mg IV x 1 * Prior dose: 1500 mg IV every 24 hours * Change dose to: 1500 mg q18 hours * Regimen is predicted to achieve target AUC/BRADFORD of 400-600 mg/L.hr * Random level in 1-2 days or with changes in renal function. Pharmacy will continue to follow and will adjust dose/frequency as necessary. Thank you. Pharmacy has transitioned to AUC monitoring for vancomycin. AUC/BRADFORD is the preferred PK/PD target and is associated with decreased risk of nephrotoxicity compared to traditional trough targets.
[2023-05-14] MEDS: DOXYCYCLINE HYCLATE 100 MG in DEXTROSE 5% 100 ML IV SCH ×2 (13:22→23:25)
--- NOTE | 2023-05-14 16:32 | Cardiology Progress Note ---
Date of Service May 14, 2023 Assessment & Plan (1) Ventricular tachyarrhythmia: (2) Acute respiratory failure with hypoxia: (3) Aspiration pneumonia: (4) Sepsis: Plan IMPRESSION: Medically complex 68 year old female admitted for hypoxic respiratory failure secondary to aspiration pneumonia, sepsis, and UTI. Klebsiella pneumoniae ESBL , Enterocossus faecalis on urine culture. No recurrence of wide complex tachycardia since episode that happened 05/12/23 at 5:54 am an lasted 1 minutes. Of note , the QRS complexes are different in appearance than the PVCs noted raising concerns that the tachycardia could be a non-sustained VT or supraventricular tachycardia with aberrant conduction. Electrolytes WNL. On nadolol as an outpatient for NAFLD- currently on hold PLAN: Ventricular tachycardia: Ventricular ectopy likely being driven by underlying acute illness. Patient is on IV metoprolol 2.5 mg IV Q 6 hours will NPO due to concerns of difficulty swallowing / aspiration . Admission and Anticipated Discharge Date Admission Date: May 09, 2023 Subjective Patient seen in cardiology follow-up. Ongoing cough observed. Subjectively she states that she is feeling a little bit better. Review of Systems Review of Systems: Unobtainable due to cognitive status Physical Exam Constitutional: + ill appearing and + morbidly obese; no acute distress Respiratory: + labored breathing, + cough and + tachypneic Auscultation: + rhonchi and + wheezes Cardiovascular: Rate/Rhythm: regular rate and regular rhythm Extremities: + edema (trace bilateral lower extremity edema, venous stasis changes ) Results & Data Vital Signs (Past 12 Hours) Vital Signs Temp Pulse Pulse Resp BP BP Pulse Ox 05/14/23 15:46 64 18 95 05/14/23 15:20 65 118/80 05/14/23 14:55 63 18 94 05/14/23 09:26 73 118/67 05/14/23 11:28 36.8 C 72 20 118/67 92 05/14/23 11:13 63 18 94 05/14/23 10:09 05/14/23 09:11 65 112/62 05/14/23 08:08 36.8 C 56 L 20 112/62 93 05/14/23 07:19 67 18 93 O2 Del Method O2 Flow Rate 05/14/23 15:46 Nasal Cannula 6 05/14/23 15:20 05/14/23 14:55 Nasal Cannula 4 05/14/23 09:26 05/14/23 11:28 Nasal Cannula 6 05/14/23 11:13 Nasal Cannula 4 05/14/23 10:09 Nasal Cannula 4 05/14/23 09:11 05/14/23 08:08 Nasal Cannula 6 05/14/23 07:19 Nasal Cannula 4 Laboratory Results CBC 05/14/23 Range/Units 05:14 WBC 5.70 (4.8-10.8) K/ul RBC 2.68 L (4.20-5.40) M/uL Hgb 9.8 L (12.0-16.0) g/dl Hct 31.2 L (37.0-47.0) % Plt Count 70 L (130-400) K/uL Comprehensive Metabolic Panel 05/14/23 Range/Units 05:14 Sodium 148 H (136-145) mmol/L Potassium 3.4 L (3.5-5.1) mmol/L Chloride 120 H (98-107) mmol/L Carbon Dioxide 25 (21-32) mmol/L BUN 22 (6-23) mg/dl Creatinine 0.64 (0.6-1.2) mg/dl Glucose 143 H (70-99(Fasting)) mg/dl Calcium 8.5 L (8.6-10.3) mg/dl Intake and Output 05/14/23 05/14/23 05/14/23 06:59 14:59 22:59 Intake Total 1255 / 1365 110 / 1365 Output Total 50 / 200 100 / 100 Balance -50 / 330 1155 / 1265 110 / 1265 Intake: IV 1255 / 1365 110 / 1365 D5w and Nss 1,000 ml @ 50 mls/ 1000 / 1000 hr IV .Q20H [facility] Rx#:[id number] Doxycycline Hyclate 100 mg In 110 / 110 Dextrose 5% 100 ml @ 50 mls/hr IV Q12H [facility] Rx#:[id number] Potassium Phosphate 15 mmol In 255 / 255 Sodium Chloride 0.9% 250 ml @ 88 mls/hr IV [facility] Rx#: [id number] Output: Urine Amount (Catheter) 50 / 150 100 / 100 External 50 / 150 100 / 100 Other: Other Intake Source NPO Weight 104.5 kg Weight Measurement Method Built in [facility] (4) Sepsis Sepsis acute organ dysfunction status: unspecified Sepsis type: sepsis due to unspecified organism Qualified Code(s): A41.9 - Sepsis, unspecified organism
[2023-05-14] MEDS: VANCOMYCIN HCL 1,500 MG in SODIUM CHLORIDE 0.9% 500 ML IV SCH (16:50)
[2023-05-14] MEDS: ATORVASTATIN 40 MG TAB PO SCH (21:21)
[2023-05-14] MEDS: HEPARIN SOD 5,000 UNIT/0.5 ML VIAL SQ SCH (21:30)
[2023-05-14] MEDS: PANTOprazole 40 MG in SYRINGE 0 ML IV SCH (22:55)
[2023-05-14] MEDS: ERTAPENEM SODIUM 1,000 MG in SYRINGE 0 ML IV SCH (22:55)
[2023-05-15] MEDS: INSULIN ASPART PER UNIT CHARGE SC SCH ×4 (00:20→17:50)
[2023-05-15] MEDS: METOPROLOL TARTRATE 1 MG/ML VIAL IV SCH ×4 (02:15→20:38)
[2023-05-15] MEDS: D5W AND NSS 1,000 ML IV SCH (05:46)
[2023-05-15] MEDS: LINACLOTIDE 145 MCG CAPSULE PO SCH (05:46)
[2023-05-15] MEDS: ALBUT/IPRATROP 3MG/0.5MG NEB 3 ML VIAL NEB SCH ×4 (07:28→19:17)
[2023-05-15 08:16] LABS: Hematocrit (blood only) 31.5 % (37.0-47.0); Hemoglobin 9.8 g/dl (12.0-16.0); Mean Corpuscular Hemoglobin 36.7 pg (25.0-34.0); Mean Corpuscular Hgb Conc 31.1 g/dL (32.0-36.0); Mean Platelet Volume 12.1 fL (9.4-12.4); Nucleated RBC # (auto) 0.04 K/uL (0.00-0.12); Nucleated RBC % (auto) 0.9 %; Platelet Count 63 K/uL (130-400); RDW Standard Deviation 79.7 fL (36.4-46.3); Red Blood Count 2.67 M/uL (4.20-5.40); White Blood Count 4.56 K/ul (4.8-10.8)
[2023-05-15 08:20] LABS: Albumin Level 2.5 gm/dl (3.4-5.0); BUN Creatinine Ratio 27.6 (10-20); Bilirubin Direct 0.9 mg/dl (0-0.2); Bilirubin,Total 2.1 mg/dl (0.2-1.0); C Reactive Protein 3.12 mg/dl (0-0.5); Calcium 8.2 mg/dl (8.6-10.3); Creatinine Clr Calc Pharmacy 97.5 ml/min; Est GFR (African American) 109.8 ml/min; Est GFR (Non-African American) 94.7 ml/min; Magnesium 1.8 mg/dl (1.7-2.4); Phosphorus 2.5 mg/dl (2.5-4.9); Potassium 3.3 mmol/L (3.5-5.1); Total Protein 5.3 gm/dl (6.0-8.3)
[2023-05-15] MEDS: FUROSEMIDE INJ 20 MG/2 ML VIAL IV SCH (09:39)
[2023-05-15] MEDS: FLUTICASONE PROPIONATE NA SPR 16 GM BTL SCH (09:42)
[2023-05-15] MEDS: FLUTICASONE/VILANTEROL 200/25MCG 14 PUFFS/INHALER INH SCH (09:43)
[2023-05-15] MEDS: LANTUS PER UNIT CHARGE SQ SCH (09:48)
[2023-05-15] MEDS: CETIRIZINE HCL 10 MG TABLET PO SCH (09:53)
[2023-05-15] MEDS: ESCITALOPRAM OXALATE 20 MG TAB PO SCH (09:53)
[2023-05-15] MEDS: ASPIRIN 300 MG SUPP PR SCH (09:53)
[2023-05-15] MEDS: DOCUSATE SODIUM 100 MG CAP PO SCH (09:53)
[2023-05-15] MEDS: oxyBUTYnin chloride 5 MG TAB PO SCH (09:54)
[2023-05-15] MEDS: LACTULOSE SYRUP 30 GM/45 ML UDP PO SCH ×2 (09:54→13:25)
[2023-05-15] MEDS: VANCOMYCIN HCL 1,500 MG in SODIUM CHLORIDE 0.9% 500 ML IV SCH (09:54)
[2023-05-15] MEDS: SPIRONOLACTONE 25 MG TAB PO SCH (09:54)
[2023-05-15] MEDS: PANTOprazole 40 MG in SYRINGE 0 ML IV SCH ×2 (10:00→20:42)
[2023-05-15] MEDS: LIDOCAINE 5% 1 PATCH TD SCH (10:33)
[2023-05-15] MEDS: HEPARIN SOD 5,000 UNIT/0.5 ML VIAL SQ SCH ×2 (10:35→20:42)
[2023-05-15] MEDS: CEROVITE ADV FORMULA TAB PO SCH (10:36)
--- NOTE | 2023-05-15 10:36 | Hospitalist Progress Note ---
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 IVF changed to D5W. Recheck in afternoon Urinary Tract Infection Abdominal pain resolved UA suggestive of UTI History of ESBL UTI Though patient did not meet 2 SIRS criteria on admission (Had only leukopenia), Sepsis is still a possibility considering possible UTI/pneumonia and lactic acidosis Possible Sepsis due to aspiration pneumonia and UTI Urine culture growing ESBL Klebsiella and Enterococcus fecalis Lactic acidosis likely due to infectious process in the background of cirrhosis and home metformin. Lactate peaked at 5. Considering history of cirrhosis and abd CT showing moderate ascites, IR evaluated for possible diagnostic tap but noted scant ascites too small to tap ID recs noted. On 05/12/23, Pharm discussed with ID and recommended to continue Ertapenem and vanco for now. Plan to switch to Augmentin once able to do po Plan to stop doxycycline if legionella is negative Hyperkalemia on admission may be related to home potassium/aldactone. Hypokalemia. Replete and monitor Was reported to have had confusion per on day of admission CT head did not show any acute abnormalities Encephalopathy, now resolved, may be related to current illness Hypotension BP was low on admission. Home nadolol on hold NAFLD Cirrhosis On lactulose On lasix, aldactone Continue to hold home potassium for now Po meds on hold today as above Mood disorder Fibromyalgia PO med on hold today as above Hyperlipidemia Po med on hold today as above Chronic pancytopenia Likely secondary to cirrhosis Gets regular PRBC approximately every 2 weeks per patient via chest port Hemoglobin at baseline Monitor Hypothyroidism IV levothyroxine while npo Diabetes mellitus Hold home antidiabetic agents Continue ISS per protocol Monitor Elevated troponin Maybe due to demand ischemia from infection TTE noted technically difficult, conc LVH, EF 65-70%, mildly dilated LA Card consulted in viewed of NSVT on tele on 05/12/23 Metoprolol started by Cardiology. DVT prophylaxis. Hep sq. Monitor thrombocytopenia Palliative evaluated for GOC. Full code Patient is mostly bedbound at home. Regular turn/skin care Will do IV tylenol 500mg q8h prn for back pain. Opioid trial yesterday did not help Patient requesting updates from providers. Mr. Syed Bustos, contact numbers [phone]. I spent a total of 45 minutes coordinating, documenting and providing care for this patient excluding time spent in performance of separately billed services Admission and Anticipated Discharge Date Admission Date: May 09, 2023 Subjective Patient seen and examined Reports cough and SOB are mildly improving Reports low back pain Denied nausea, vomiting, abd pain, fever, chills, chest pain Physical Exam Constitutional: + well hydrated and + obese; no acute distress Eyes: PERRL, conjunctivae normal, anicteric sclerae ENMT: external ear and nose normal, oropharynx normal Respiratory: normal respiratory effort; no respiratory distress +crackles, +transmitted sounds On nasal cannula, +cough Cardiovascular: Rate/Rhythm: regular rate and regular rhythm S1 S2 Gastrointestinal (Abdomen): normal bowel sounds, soft, nontender, no hepatosplenomegaly Musculoskeletal: +chronic pedal edema Neurologic: PERRL, EOMI, accommodation nl, no face palsy, no dysarthria Psychiatric: A+Ox3, euthymic affect Results & Data Results & Data Vital Signs (Past 12 Hours) Vital Signs Temp Pulse Pulse Resp BP BP Pulse Ox 05/15/23 10:04 63 136/71 05/15/23 09:49 68 133/75 05/15/23 07:43 37.0 C 69 17 133/75 92 05/15/23 07:28 58 L 18 96 05/15/23 07:27 55 L 05/15/23 06:31 05/15/23 03:35 36.8 C 59 L 16 122/84 94 05/15/23 02:15 56 L 05/15/23 00:00 65 05/14/23 22:44 69 20 125/63 91 Pulse Ox O2 Del Method O2 Del Method O2 Flow Rate O2 Flow Rate 05/15/23 10:04 05/15/23 09:49 05/15/23 07:43 Nasal Cannula 5 05/15/23 07:28 Nasal Cannula 5 05/15/23 07:27 05/15/23 06:31 95 Nasal Cannula 4 05/15/23 03:35 Nasal Cannula 6 05/15/23 02:15 05/15/23 00:00 05/14/23 22:44 Nasal Cannula 6 Laboratory Results Abnormal lab results 05/14/23 05/15/23 05/15/23 Range/Units 17:50 00:07 06:01 WBC (4.8-10.8) K/ul RBC (4.20-5.40) M/uL Hgb (12.0-16.0) g/dl Hct (37.0-47.0) % MCV (80.0-100.0) fL MCH (25.0-34.0) pg MCHC (32.0-36.0) g/dL RDW Std Deviation (36.4-46.3) fL RDW Coeff of Bradley (11.5-14.5) % Plt Count (130-400) K/uL Sodium (136-145) mmol/L Potassium (3.5-5.1) mmol/L Chloride (98-107) mmol/L Creatinine (0.6-1.2) mg/dl BUN/Creatinine Ratio (10-20) Glucose (70-99(Fasting)) mg/dl POC Glucose 171 H 153 H 146 H (70-99) mg/dl Calcium (8.6-10.3) mg/dl Total Bilirubin (0.2-1.0) mg/dl Direct Bilirubin (0-0.2) mg/dl AST (13-39) U/L ALT (7-52) U/L C-Reactive Protein (0-0.5) mg/dl Total Protein (6.0-8.3) gm/dl Albumin (3.4-5.0) gm/dl 05/15/23 05/15/23 Range/Units 07:39 07:39 WBC 4.56 L (4.8-10.8) K/ul RBC 2.67 L (4.20-5.40) M/uL Hgb 9.8 L (12.0-16.0) g/dl Hct 31.5 L (37.0-47.0) % MCV 118.0 H (80.0-100.0) fL MCH 36.7 H (25.0-34.0) pg MCHC 31.1 L (32.0-36.0) g/dL RDW Std Deviation 79.7 H (36.4-46.3) fL RDW Coeff of Bradley 19.0 H (11.5-14.5) % Plt Count 63 L (130-400) K/uL Sodium 150 H (136-145) mmol/L Potassium 3.3 L (3.5-5.1) mmol/L Chloride 122 H (98-107) mmol/L Creatinine 0.58 L (0.6-1.2) mg/dl BUN/Creatinine Ratio 27.6 H (10-20) Glucose 154 H (70-99(Fasting)) mg/dl POC Glucose (70-99) mg/dl Calcium 8.2 L (8.6-10.3) mg/dl Total Bilirubin 2.1 H (0.2-1.0) mg/dl Direct Bilirubin 0.9 H (0-0.2) mg/dl AST 68 H (13-39) U/L ALT 70 H (7-52) U/L C-Reactive Protein 3.12 H (0-0.5) mg/dl Total Protein 5.3 L (6.0-8.3) gm/dl Albumin 2.5 L (3.4-5.0) gm/dl
[2023-05-15] MEDS ORDERED: POTASSIUM PHOS 3 MMOL/1 ML INFUSION IV STA (11:02)
[2023-05-15] MEDS: DEXTROSE 5% 1,000 ML IV SCH (11:09)
[2023-05-15] MEDS ORDERED: POTASSIUM PHOSPHATE 15 MMOL in SODIUM CHLORIDE 0.9% 250 ML IV ONE (11:15)
--- NOTE | 2023-05-15 11:42 | Communication Note ---
Date of Service: May 15, 2023 Chart and telemetry reviewed. No further arrhythmias. Would continue IV metoprolol until able to take p.o. recommend optimizing electrolytes
[2023-05-15] MEDS: DOXYCYCLINE HYCLATE 100 MG in DEXTROSE 5% 100 ML IV SCH ×2 (12:53→23:09)
[2023-05-15 16:00] LABS: BUN Creatinine Ratio 26.2 (10-20); Calcium 8.2 mg/dl (8.6-10.3); Creatinine Clr Calc Pharmacy 92.7 ml/min; Est GFR (Non-African American) 93.1 ml/min; Potassium 3.4 mmol/L (3.5-5.1)
--- NOTE | 2023-05-15 16:01 | Electrocardiogram Report ---
Test Reason : Blood Pressure : / mmHG Vent. Rate : 073 BPM Atrial Rate : 073 BPM P-R Int : 194 ms QRS Dur : 092 ms QT Int : 428 ms P-R-T Axes : 050 -09 023 degrees QTc Int : 471 ms Normal sinus rhythm Cannot rule out Anterior infarct , age undetermined Nonspecific T wave abnormality Abnormal ECG When compared with ECG of 09-MAY-2023 20:34, No significant change was found Confirmed by Fausto Headley ([id number]) on 05/15/2023 4:01:13 PM Referred By: REFERRED SELF Confirmed By:Fausto Headley
[2023-05-15] MEDS: ACETAMINOPHEN 10MG/ML Custom 500 MG in EMPTY BAG 0 ML IV PRN (18:18)
[2023-05-15] MEDS: ERTAPENEM SODIUM 1,000 MG in SYRINGE 0 ML IV SCH (23:04)
[2023-05-16] MEDS: INSULIN ASPART PER UNIT CHARGE SC SCH ×4 (00:46→17:58)
[2023-05-16] MEDS: METOPROLOL TARTRATE 1 MG/ML VIAL IV SCH ×4 (01:56→20:32)
[2023-05-16] MEDS ORDERED: FUROSEMIDE INJ 20 MG/2 ML VIAL IV ONE (01:58)
[2023-05-16] MEDS ORDERED: VANCOMYCIN LEVEL ONE (03:30)
[2023-05-16] MEDS: VANCOMYCIN HCL 1,500 MG in SODIUM CHLORIDE 0.9% 500 ML IV SCH (03:58)
[2023-05-16 04:15] LABS: Hematocrit (blood only) 31.6 % (37.0-47.0); Hemoglobin 10.1 g/dl (12.0-16.0); Mean Corpuscular Volume 115.8 fL (80.0-100.0); Mean Platelet Volume 12.2 fL (9.4-12.4); Nucleated RBC # (auto) 0.02 K/uL (0.00-0.12); Nucleated RBC % (auto) 0.4 %; Platelet Count 63 K/uL (130-400); RDW Standard Deviation 78.3 fL (36.4-46.3); Red Blood Count 2.73 M/uL (4.20-5.40); White Blood Count 4.61 K/ul (4.8-10.8)
[2023-05-16 04:17] LABS: BUN Creatinine Ratio 24.2 (10-20); C Reactive Protein 3.37 mg/dl (0-0.5); Calcium 8.5 mg/dl (8.6-10.3); Creatinine Clr Calc Pharmacy 91.2 ml/min; Est GFR (African American) 107.4 ml/min; Est GFR (Non-African American) 92.7 ml/min; Magnesium 1.6 mg/dl (1.7-2.4); Phosphorus 2.9 mg/dl (2.5-4.9); Potassium 3.1 mmol/L (3.5-5.1)
[2023-05-16] MEDS: MAGNESIUM SULFATE / D5W 1 GM/100 ML BAG IV SCH ×2 (05:30→07:27)
[2023-05-16] MEDS: POTASSIUM CHLORIDE / WTR 10 MEQ/100 ML PLCT IV SCH ×4 (05:30→08:33)
[2023-05-16] MEDS: DEXTROSE 5% 1,000 ML IV SCH (06:26)
[2023-05-16] MEDS: ALBUT/IPRATROP 3MG/0.5MG NEB 3 ML VIAL NEB SCH ×4 (07:20→18:55)
--- NOTE | 2023-05-16 08:09 | XRay Report ---
XR chest 1V portable HISTORY: Shortness of breath. COMPARISON: 05/12/2023. FINDINGS: No pneumothorax. Rotated study. Right Port-A-Cath terminates at the superior cavoatrial konrad ction. Bibasilar densities and small bilateral pleural effusions persist. Mild congestive changes aga in noted. Volume loss within the right hemithorax and a right basilar density have slightly improved. The heart remains enlarged. IMPRESSION: 1. Slight improved aeration within the right hemithorax and right basilar density. 2. Small bilateral pleural effusions and bibasilar densities again noted. 3. Hepatomegaly with mild congestive change. ACT 112: Negative or not required by law. Electronically signed by: Cecil Matthew M.D. 05/16/2023 8:07 AM
[2023-05-16] MEDS: FLUTICASONE/VILANTEROL 200/25MCG 14 PUFFS/INHALER INH SCH (08:55)
[2023-05-16] MEDS: ASPIRIN 300 MG SUPP PR SCH (08:55)
[2023-05-16] MEDS: LANTUS PER UNIT CHARGE SQ SCH (08:55)
[2023-05-16] MEDS: HEPARIN SOD 5,000 UNIT/0.5 ML VIAL SQ SCH ×2 (08:56→20:41)
[2023-05-16] MEDS: FLUTICASONE PROPIONATE NA SPR 16 GM BTL SCH (08:56)
[2023-05-16] MEDS: PANTOprazole 40 MG in SYRINGE 0 ML IV SCH ×2 (08:56→20:41)
[2023-05-16] MEDS: LIDOCAINE 5% 1 PATCH TD SCH (08:57)
[2023-05-16] MEDS: FUROSEMIDE INJ 20 MG/2 ML VIAL IV SCH (08:59)
--- NOTE | 2023-05-16 09:14 | Pharmacy Report ---
Pharmacy PK ABX Note - Date of Service May 16, 2023 - Assessment and Plan Assessment 05/14: Sputum from 05/13 with staph species, + MRSA nasal swab. Continues on ertapenem/vancomycin/doxycycline * Random level this morning suggests lower therapeutic achievement, will adjust dose slightly to target higher end of goal range * Renal function has been stable 05/12: 68 year old F receiving VANCOMYCIN + DOXYCYCLINE + ERTAPENEM for treatment of complicated UTI / aspiration PNA. Pharmacy has been consulted to dose vancomycin. * Pertinent microbiologic data includes: Positive MRSA Nasal Swab; urine culture growing enterococcus faecalis (susceptible PCN, ampicillin, vancomycin, daptom ycin, levofloxacin) as well as ESBL klebsiella (susceptible ertapenem), procal elevation 0.97 05/09. * Day # 2 of VANCOMYCIN * ID is consulted 05/13:Level this morning is elevated. Will decrease interval back to q24h. Two strains of MRSA growing from the sputum culture. Plan Vancomycin * Trough level this morning is 21.2 mcg/ml * Prior dose: 1500 mg IV every 18 hours * Change dose to: 1500 mg q24 hours * Regimen is predicted to achieve target AUC/BRADFORD of 400-600 mg/L.hr * Random level 05/19 @0530 Pharmacy will continue to follow and will adjust dose/frequency as necessary. Thank you. Pharmacy has transitioned to AUC monitoring for vancomycin. AUC/BRADFORD is the preferred PK/PD target and is associated with decreased risk of nephrotoxicity compared to traditional trough targets.
--- NOTE | 2023-05-16 10:47 | Hospitalist Progress Note ---
Date of Service May 16, 2023 Assessment & Plan (1) Acute hypoxemic respiratory failure: Plan: Aspiration pneumonia Reported vomiting episodes at home CXR noted chronic interstitial thickening, bibasilar scarring/atelectasis CT abd/pelvis noted dependent consolidation in right greater than left lower lobes Had coughing bouts while eating and diet was initially changed to pureed Video swallow study was limited due to difficulty positioning but did show penetration with multiple consistencies BICYCLE FITTER reevaluated and made NPO on 05/12/23 Aspiration precautions Did not do well with BICYCLE FITTER evaluation yesterday Hypernatremia improving, Na is 147 today. continue D5W IVF Urinary Tract Infection Abdominal pain resolved UA suggestive of UTI History of ESBL UTI Though patient did not meet 2 SIRS criteria on admission (Had only leukopenia), Sepsis is still a possibility considering possible UTI/pneumonia and lactic acidosis Possible Sepsis due to aspiration pneumonia and UTI Urine culture growing ESBL Klebsiella and Enterococcus fecalis Lactic acidosis likely due to infectious process in the background of cirrhosis and home metformin. Lactate peaked at 5. Considering history of cirrhosis and abd CT showing moderate ascites, IR evaluated for possible diagnostic tap but noted scant ascites too small to tap ID recs noted. On 05/12/23, Pharm discussed with ID and recommended to continue Ertapenem and vanco for now. Plan to switch to Augmentin once able to do po Plan to stop doxycycline if legionella is negative Hyperkalemia on admission may be related to home potassium/aldactone. Hypokalemia. Replete and monitor Was reported to have had confusion per on day of admission CT head did not show any acute abnormalities Encephalopathy, now resolved, may be related to current illness Hypotension BP was low on admission. Home nadolol on hold NAFLD Cirrhosis On lactulose On lasix, aldactone Continue to hold home potassium for now Po meds on hold today as above Mood disorder Fibromyalgia PO med on hold today as above Hyperlipidemia Po med on hold today as above Chronic pancytopenia Likely secondary to cirrhosis Gets regular PRBC approximately every 2 weeks per patient via chest port Hemoglobin at baseline Monitor Hypothyroidism IV levothyroxine while npo Diabetes mellitus Hold home antidiabetic agents Continue ISS per protocol Monitor Elevated troponin Maybe due to demand ischemia from infection TTE noted technically difficult, conc LVH, EF 65-70%, mildly dilated LA Card consulted in viewed of NSVT on tele on 05/12/23 Metoprolol started by Cardiology. DVT prophylaxis. Hep sq. Monitor thrombocytopenia Goals of care I discussed her diagnoses and aspiration with her We reviewed options for management considering persisting aspiration. She stated she will ultimately want to go home We discussed other enteral feeding options including NGT (she is not interested in this) and PEG, though these will not stop aspiration but will only serve to provide route for enteral feeing and meds. She will like to discuss with her and Palliative team later Patient requesting updates from providers. Mr. Syed Bustos, contact numbers [phone]. Called and updated I spent a total of 50 minutes coordinating, documenting and providing care for this patient excluding time spent in performance of separately billed services Admission and Anticipated Discharge Date Admission Date: May 09, 2023 Subjective Failed BICYCLE FITTER eval yesterday Digital Marketing Lead gave a dose of lasix and put a nova in Patient seen and examined Still coughing and has SOB Currently on nasal oxygen Denied nausea, vomiting, abd pain, fever, chills, chest pain Physical Exam Constitutional: + ill appearing, + well hydrated and + obese; no acute distress Eyes: PERRL, conjunctivae normal, anicteric sclerae ENMT: external ear and nose normal, oropharynx normal Respiratory: normal respiratory effort; no respiratory distress On nasal oxygen +crackles,+transmitted sounds, coughing Cardiovascular: Rate/Rhythm: regular rate and regular rhythm S1 S2 Gastrointestinal (Abdomen): normal bowel sounds, soft, nontender, no hepatosplenomegaly Musculoskeletal: +pedal edema Neurologic: PERRL, EOMI, accommodation nl, no face palsy, no dysarthria Psychiatric: A+Ox3, euthymic affect Genitourinary: Nova in situ Results & Data Results & Data Vital Signs (Past 12 Hours) Vital Signs Temp Pulse Pulse Resp BP BP BP 05/16/23 09:20 68 108/64 05/16/23 08:59 66 113/62 05/16/23 08:10 36.3 C L 65 16 113/62 05/16/23 07:20 61 18 05/16/23 05:50 61 05/16/23 03:33 37.0 C 65 21 129/85 05/16/23 01:56 54 L 128/63 05/16/23 01:55 54 L 128/63 05/16/23 00:07 113/62 05/15/23 22:53 37.0 C 61 21 98/74 L Pulse Ox O2 Del Method O2 Flow Rate 05/16/23 09:20 05/16/23 08:59 05/16/23 08:10 95 Room Air 05/16/23 07:20 95 Nasal Cannula 5 05/16/23 05:50 05/16/23 03:33 93 Nasal Cannula 5.0 05/16/23 01:56 05/16/23 01:55 05/16/23 00:07 05/15/23 22:53 93 Nasal Cannula 5.0
[2023-05-16] MEDS: DOXYCYCLINE HYCLATE 100 MG in DEXTROSE 5% 100 ML IV SCH (12:41)
--- NOTE | 2023-05-16 14:24 | Cardiology Progress Note ---
Date of Service May 16, 2023 Assessment & Plan (1) Ventricular tachyarrhythmia: (2) Acute respiratory failure with hypoxia: (3) Aspiration pneumonia: (4) Sepsis: Plan IMPRESSION: Medically complex 68 year old female admitted for hypoxic respiratory failure secondary to aspiration pneumonia, sepsis, and UTI. Klebsiella pneumoniae ESBL , Enterocossus faecalis on urine culture. No recurrence of wide complex tachycardia since episode that happened 05/12/23 at 5:54 am an lasted 1 minutes. Of note , the QRS complexes are different in appearance than the PVCs noted raising concerns that the tachycardia could be a non-sustained VT or supraventricular tachycardia with aberrant conduction. Electrolytes WNL. On nadolol as an outpatient for NAFLD- currently on hold PLAN: Ventricular tachycardia: Ventricular ectopy likely being driven by underlying acute illness. Patient is on IV metoprolol 2.5 mg IV Q 6 hours will NPO due to concerns of difficulty swallowing / aspiration . Admission and Anticipated Discharge Date Admission Date: May 09, 2023 Subjective Patient seen in cardiology follow-up. Still with productive cough. Remains n.p.o. of both food and medication due to aspiration issues. Physical Exam Constitutional: + ill appearing and + morbidly obese; no acute distress Respiratory: + labored breathing, + cough and + tachypneic Auscultation: + rhonchi and + wheezes Cardiovascular: Rate/Rhythm: regular rate and regular rhythm Extremities: + edema (trace bilateral lower extremity edema, venous stasis changes ) Results & Data Vital Signs (Past 12 Hours) Vital Signs Temp Pulse Pulse Resp BP BP Pulse Ox 05/16/23 13:10 56 L 05/16/23 12:04 37.1 C 68 14 121/60 94 05/16/23 08:00 56 L 05/16/23 10:54 60 20 92 05/16/23 09:20 68 108/64 05/16/23 08:59 66 113/62 05/16/23 08:10 36.3 C L 65 16 113/62 95 05/16/23 07:20 61 18 95 05/16/23 05:50 61 05/16/23 03:33 37.0 C 65 21 129/85 93 O2 Del Method O2 Flow Rate 05/16/23 13:10 05/16/23 12:04 Room Air 05/16/23 08:00 05/16/23 10:54 Nasal Cannula 5 05/16/23 09:20 05/16/23 08:59 05/16/23 08:10 Room Air 05/16/23 07:20 Nasal Cannula 5 05/16/23 05:50 05/16/23 03:33 Nasal Cannula 5.0 (4) Sepsis Sepsis acute organ dysfunction status: unspecified Sepsis type: sepsis due to unspecified organism Qualified Code(s): A41.9 - Sepsis, unspecified organism
[2023-05-16 19:03] LABS: BUN Creatinine Ratio 18.5 (10-20); Calcium 8.2 mg/dl (8.6-10.3); Creatinine Clr Calc Pharmacy 85.2 ml/min; Est GFR (African American) 105.7 ml/min; Est GFR (Non-African American) 91.2 ml/min; Potassium 3.3 mmol/L (3.5-5.1)
[2023-05-16] MEDS: ERTAPENEM SODIUM 1,000 MG in SYRINGE 0 ML IV SCH (23:01)
[2023-05-17] MEDS: INSULIN ASPART PER UNIT CHARGE SC SCH ×5 (00:21→21:45)
[2023-05-17] MEDS: DOXYCYCLINE HYCLATE 100 MG in DEXTROSE 5% 100 ML IV SCH ×3 (00:29→23:14)
[2023-05-17] MEDS: METOPROLOL TARTRATE 1 MG/ML VIAL IV SCH ×4 (02:18→20:19)
[2023-05-17] MEDS: DEXTROSE 5% 1,000 ML IV SCH ×2 (02:50→23:00)
[2023-05-17] MEDS: VANCOMYCIN HCL 1,500 MG in SODIUM CHLORIDE 0.9% 500 ML IV SCH (05:29)
[2023-05-17 07:07] LABS: Hematocrit (blood only) 28.9 % (37.0-47.0); Hemoglobin 9.5 g/dl (12.0-16.0); Mean Corpuscular Hemoglobin 36.8 pg (25.0-34.0); Mean Corpuscular Hgb Conc 32.9 g/dL (32.0-36.0); Nucleated RBC # (auto) 0.03 K/uL (0.00-0.12); Nucleated RBC % (auto) 0.6 %; Platelet Count 58 K/uL (130-400); RDW Coefficient of Variation 18.2 % (11.5-14.5); Red Blood Count 2.58 M/uL (4.20-5.40)
[2023-05-17] MEDS: ALBUT/IPRATROP 3MG/0.5MG NEB 3 ML VIAL NEB SCH ×4 (07:27→19:51)
[2023-05-17 07:32] LABS: BUN Creatinine Ratio 21.1 (10-20); Calcium 7.8 mg/dl (8.6-10.3); Creatinine Clr Calc Pharmacy 101.4 ml/min; Est GFR (African American) 110.4 ml/min; Est GFR (Non-African American) 95.3 ml/min; Magnesium 1.7 mg/dl (1.7-2.4); Phosphorus 2.1 mg/dl (2.5-4.9); Potassium 3.1 mmol/L (3.5-5.1)
[2023-05-17 07:44] LABS: Partial Thromboplastin Ratio 1.4
[2023-05-17 07:46] LABS: Partial Thromboplastin Time 40.6 Seconds (21.0-31.0)
[2023-05-17] MEDS: LANTUS PER UNIT CHARGE SQ SCH (08:15)
[2023-05-17] MEDS: FLUTICASONE/VILANTEROL 200/25MCG 14 PUFFS/INHALER INH SCH (08:53)
[2023-05-17] MEDS: FLUTICASONE PROPIONATE NA SPR 16 GM BTL SCH (08:53)
[2023-05-17] MEDS: ASPIRIN 300 MG SUPP PR SCH (09:04)
[2023-05-17] MEDS: HEPARIN SOD 5,000 UNIT/0.5 ML VIAL SQ SCH ×2 (09:05→20:22)
[2023-05-17] MEDS: FUROSEMIDE INJ 20 MG/2 ML VIAL IV SCH (09:05)
[2023-05-17] MEDS: PANTOprazole 40 MG in SYRINGE 0 ML IV SCH ×2 (09:05→20:22)
[2023-05-17] MEDS: LIDOCAINE 5% 1 PATCH TD SCH (09:06)
[2023-05-17] MEDS: POTASSIUM CHLORIDE / WTR 10 MEQ/100 ML PLCT IV SCH ×4 (09:23→13:14)
[2023-05-17] MEDS: LEVOTHYROXINE SODIUM 75 MCG in SYRINGE 0 ML IV SCH (10:17)
--- NOTE | 2023-05-17 10:56 | Cardiology Progress Note ---
Date of Service May 17, 2023 Assessment & Plan (1) Ventricular tachyarrhythmia: (2) Acute respiratory failure with hypoxia: (3) Aspiration pneumonia: (4) Sepsis: Plan IMPRESSION: Medically complex 68 year old female admitted for hypoxic respiratory failure secondary to aspiration pneumonia, sepsis, and UTI. Klebsiella pneumoniae ESBL , Enterocossus faecalis on urine culture. No recurrence of wide complex tachycardia since episode that happened 05/12/23 at 5:54 am an lasted 1 minutes. Of note , the QRS complexes are different in appearance than the PVCs noted raising concerns that the tachycardia could be a non-sustained VT or supraventricular tachycardia with aberrant conduction. Electrolytes WNL. On nadolol as an outpatient for NAFLD- currently on hold PLAN: Ventricular tachycardia: Ventricular ectopy likely being driven by underlying acute illness. Patient is on IV metoprolol 2.5 mg IV Q 6 hours will NPO due to concerns of difficulty swallowing / aspiration with holds in place for low HR and BP . Admission and Anticipated Discharge Date Admission Date: May 09, 2023 Subjective Patient with ongoing cough. Remains n.p.o. due to aspiration. Telemetry revealed sinus bradycardia down to the 50s overnight. Most recently sinus rhythm 60s. Systolic blood pressures also been on the lower side and due to low heart rate low blood pressure IV metoprolol was held this morning. Physical Exam Constitutional: + ill appearing and + morbidly obese; no acute distress Respiratory: + labored breathing, + cough and + tachypneic Auscultation: + rhonchi and + wheezes Cardiovascular: Rate/Rhythm: regular rate and regular rhythm Extremities: + edema (trace bilateral lower extremity edema, venous stasis changes ) Results & Data Vital Signs (Past 12 Hours) Vital Signs Temp Pulse Pulse Resp BP BP Pulse Ox 05/17/23 08:00 36.6 C 58 L 18 93/44 L 97 05/17/23 08:52 58 L 93/44 L 05/17/23 07:27 58 L 19 92 05/17/23 03:29 36.8 C 52 L 20 96/49 L 94 05/17/23 02:18 58 L 107/61 05/17/23 00:07 37.0 C 62 18 104/45 L 94 O2 Del Method O2 Flow Rate 05/17/23 08:00 Nasal Cannula 4 05/17/23 08:52 05/17/23 07:27 Nasal Cannula 4 05/17/23 03:29 Nasal Cannula 5.0 05/17/23 02:18 05/17/23 00:07 Nasal Cannula 5.0 (4) Sepsis Sepsis acute organ dysfunction status: unspecified Sepsis type: sepsis due to unspecified organism Qualified Code(s): A41.9 - Sepsis, unspecified organism
--- NOTE | 2023-05-17 12:01 | CT Scan Report ---
CT head/brain wo con CLINICAL HISTORY: 68 years-old Female with dysphagia, r/o cva. Acute stroke like symptoms TECHNIQUE: Multiple axial CT images of the head were obtained without contrast. A dose lowering tech nique was utilized adhering to the principles of ALARA. CT DOSE: 547.75 mGy.cm COMPARISON: 05/10/2023 FINDINGS: No acute intracranial hemorrhage, midline shift, intracranial mass, hydrocephalus, territorial ischem ia or abnormal extra-axial collection. 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 White m atter hypodensities suggestive of chronic microvascular ischemic disease. Motion degraded exam. The calvarium is intact. Moderate mucosal thickening in the left sphenoid sinus with air-fluid level . Mastoid air cells are clear. IMPRESSION: Chronic findings as above without acute intracranial abnormality. ACT 112: Negative or not required by law. The above report was generated using voice recognition software. It may contain grammatical, syntax o r spelling errors. Electronically signed by: Serg Torres M.D. 05/17/2023 11:58 AM
--- NOTE | 2023-05-17 15:44 | Hospitalist Progress Note ---
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 continue D5W IVF 05/17 discussed case at length with speech therapy service today, including VFSS, recent bedside eval presentation felt to be a possible brainstem infarct patient may not do well with MRI, Repeat CT head ordered Neuro eval also requested repeat bedside speech eval today requested , patient did better, taking in food, no overt signs of aspiration i also assessed patient myself- given chocolate pudding and water- no signs of aspiration speech Tx recommending pureed diet with mild thickened liquids will advance diet on Vanco + Ertapenem + Doxycycline IV Urinary Tract Infection Abdominal pain resolved UA suggestive of UTI History of ESBL UTI Though patient did not meet 2 SIRS criteria on admission (Had only leukopenia), Sepsis is still a possibility considering possible UTI/pneumonia and lactic acidosis Possible Sepsis due to aspiration pneumonia and UTI Urine culture growing ESBL Klebsiella and Enterococcus fecalis Lactic acidosis likely due to infectious process in the background of cirrhosis and home metformin. Lactate peaked at 5. Considering history of cirrhosis and abd CT showing moderate ascites, IR evaluated for possible diagnostic tap but noted scant ascites too small to tap ID recs noted. On 05/12/23, Pharm discussed with ID and recommended to continue Ertapenem and vanco for now. Plan to switch to Augmentin once able to do po Plan to stop doxycycline if legionella is negative 05/17 on above antibiotics Hyperkalemia on admission may be related to home potassium/aldactone. Hypokalemia. Replete and monitor Was reported to have had confusion per on day of admission CT head did not show any acute abnormalities Encephalopathy, now resolved, may be related to current illness Episode of SVT on Metoprolol IV 2.5mg IV q6h Cardiology on board Hypotension BP was low on admission. Home nadolol on hold NAFLD Cirrhosis On lactulose On lasix, aldactone Continue to hold home potassium for now Po meds on hold today as above Mood disorder Fibromyalgia PO med on hold today as above Hyperlipidemia Po med on hold today as above Chronic pancytopenia Likely secondary to cirrhosis Gets regular PRBC approximately every 2 weeks per patient via chest port Hemoglobin at baseline Monitor Hypothyroidism IV levothyroxine while npo Diabetes mellitus Hold home antidiabetic agents Continue ISS per protocol Monitor Elevated troponin Maybe due to demand ischemia from infection TTE noted technically difficult, conc LVH, EF 65-70%, mildly dilated LA Card consulted in viewed of NSVT on tele on 05/12/23 Metoprolol started by Cardiology. DVT prophylaxis. Hep sq. Monitor thrombocytopenia plan of care discussed with patient and her in detail and at length all questions answered they are understanding, agreeable, comfortable with the plan of care Admission and Anticipated Discharge Date Admission Date: May 09, 2023 Subjective ff up for dysphagia, pneumonia, UTI, etc seen resting in bed, awake, alert oriented, answers questions appropriately states she feels ok overall states she is very hungry and would like to eat no chest pain, dyspnea, palpitations, dizziness no new neurologic symptoms Review of Systems Review of Systems: all noted and negative except for above Physical Exam Physical Exam: General- oriented x 2, not in distress, speaks in sentences with no effort or accessory muscle use Eyes- anicteric Neck- no JVD Lungs- clear breath sounds bilaterally, no crackles or wheezing Heart- normal rate, regular rhythm; no murmurs Abdomen- normal bowel sounds, nondistended, soft, no tenderness Extremities- no pretibial edema, no calf tenderness Neuro- alert, oriented x 2; no gross focal neurologic deficits Skin- warm & dry Results & Data Results & Data Vital Signs (Past 12 Hours) Vital Signs Temp Pulse Pulse Resp BP BP Pulse Ox 05/17/23 15:22 87 20 90 05/17/23 08:00 05/17/23 08:00 58 L 05/17/23 13:21 70 104/66 05/17/23 11:56 36.7 C 87 16 101/73 97 05/17/23 11:15 77 19 88 L 05/17/23 08:00 36.6 C 58 L 18 93/44 L 97 05/17/23 13:14 87 101/73 05/17/23 08:52 58 L 93/44 L 09/06/23 07:27 58 L 19 92 O2 Del Method O2 Flow Rate 05/17/23 15:22 Nasal Cannula 4 05/17/23 08:00 Nasal Cannula 4 05/17/23 08:00 05/17/23 13:21 05/17/23 11:56 Room Air 05/17/23 11:15 Nasal Cannula 4 05/17/23 08:00 Nasal Cannula 4 05/17/23 13:14 05/17/23 08:52 05/17/23 07:27 Nasal Cannula 4 all noted and reviewed including below
[2023-05-17] MEDS ORDERED: Nursing to Pharmacy Communication SCH (17:00)
[2023-05-17] MEDS: ACETAMINOPHEN 10MG/ML Custom 500 MG in EMPTY BAG 0 ML IV PRN (18:24)
--- NOTE | 2023-05-18 00:01 | Communication Note ---
Date of Service: May 17, 2023 Brief palliative medicine note Attempted to see patient earlier this morning, but she was out of the room and not available. Her case was discussed in detail with primary team and PAPER STACKER. Concerns reviewed regarding her waxing and waning aspiration and dysphagia. Today she tolerated p.o. safely and appeared to swallow without overt aspiration. She tolerated pudding repeatedly through the day. Goals of care remain unclear. Patient had previously stated she does not wish to have a feeding tube. However, her swallow remains inconsistent. It is unclear if she will benefit from speech and swallow therapy. CT of the head today was unremarkable we are unable to proceed with a brain MRI due to her body habitus. We will continue to follow patient and attempt to revisit a dialogue about advanced illness planning. Extent of her family's involvement in her care remains unclear and patient has not been able to fully outline or clarify this for me when I have asked. TS; 20min Patient not seen/she was unavailable and off the unit, no charge submitted. Thank you for allowing us to participate in the ongoing care of this patient. Please don't hesitate to call or page with any additional concerns. Dr. Rachel Giles DNP Director, Palliative Care
[2023-05-18] MEDS ORDERED: ALBUMIN 25% 25 GM/100 ML VIAL IV ONE (01:00)
[2023-05-18 01:41] LABS: Basophils # (auto) 0.01 K/uL (0.00-0.20); Basophils % (auto) 0.2 %; Eosinophils # (auto) 0.24 K/uL (0.00-0.50); Eosinophils % (auto) 4.9 %; Hematocrit (blood only) 28.1 % (37.0-47.0); Hemoglobin 9.2 g/dl (12.0-16.0); Immature Granulocytes # (auto) 0.05 K/uL (0.01-0.20); Lymphocytes # (auto) 0.75 K/uL (1.20-3.40); Lymphocytes % (auto) 15.3 %; Mean Corpuscular Hemoglobin 36.8 pg (25.0-34.0); Mean Corpuscular Hgb Conc 32.7 g/dL (32.0-36.0); Mean Corpuscular Volume 112.4 fL (80.0-100.0); Mean Platelet Volume 12.5 fL (9.4-12.4); Monocytes # (auto) 0.39 K/uL (0.11-0.59); Neutrophils # (auto) 3.46 K/uL (1.40-6.50); Neutrophils % (auto) 70.6 %; Nucleated RBC # (auto) 0.02 K/uL (0.00-0.12); Nucleated RBC % (auto) 0.4 %; Platelet Count 53 K/uL (130-400); RDW Coefficient of Variation 18.6 % (11.5-14.5); RDW Standard Deviation 75.2 fL (36.4-46.3)
[2023-05-18 01:54] LABS: BUN Creatinine Ratio 16.9 (10-20); Calcium 7.9 mg/dl (8.6-10.3); Creatinine Clr Calc Pharmacy 88.9 ml/min; Est GFR (African American) 105.7 ml/min; Est GFR (Non-African American) 91.2 ml/min; Potassium 3.4 mmol/L (3.5-5.1)
[2023-05-18] MEDS: METOPROLOL TARTRATE 1 MG/ML VIAL IV SCH ×4 (02:56→21:04)
[2023-05-18 03:52] LABS: Partial Thromboplastin Time 57.1 Seconds (21.0-31.0)
[2023-05-18] MEDS: VANCOMYCIN HCL 1,500 MG in SODIUM CHLORIDE 0.9% 500 ML IV SCH (05:29)
[2023-05-18] MEDS: ALBUT/IPRATROP 3MG/0.5MG NEB 3 ML VIAL NEB SCH ×4 (07:04→19:45)
[2023-05-18 08:09] LABS: Partial Thromboplastin Ratio 1.8
[2023-05-18] MEDS: INSULIN ASPART PER UNIT CHARGE SC SCH ×4 (08:36→21:08)
[2023-05-18] MEDS: FLUTICASONE PROPIONATE NA SPR 16 GM BTL SCH (08:50)
[2023-05-18] MEDS: FLUTICASONE/VILANTEROL 200/25MCG 14 PUFFS/INHALER INH SCH (08:50)
[2023-05-18] MEDS: HEPARIN SOD 5,000 UNIT/0.5 ML VIAL SQ SCH ×2 (08:51→21:11)
[2023-05-18] MEDS: PANTOprazole 40 MG in SYRINGE 0 ML IV SCH ×2 (08:56→21:08)
[2023-05-18] MEDS: ASPIRIN 300 MG SUPP PR SCH (08:59)
[2023-05-18] MEDS: LIDOCAINE 5% 1 PATCH TD SCH (08:59)
[2023-05-18] MEDS: FUROSEMIDE INJ 20 MG/2 ML VIAL IV SCH (08:59)
[2023-05-18] MEDS: LANTUS PER UNIT CHARGE SQ SCH (09:08)
--- NOTE | 2023-05-18 10:31 | Neurology Consultation ---
Date of Consultation May 18, 2023 Assessment & Plan (1) Dysphagia: (2) Cerebral palsy: (3) Dysgenesis of corpus callosum: Plan 68-year-old female with a history of paraplegic cerebral palsy, partial dysgenesis of the corpus callosum, obstructive sleep apnea, admitted with hy poxic respiratory failure, pneumonia, urosepsis, now with dysphagia of uncertain onset. Patient does not have signs or symptoms that would otherwise suggest a brainstem stroke. Although I suspect her dysphagia is multifactorial and at least in part related to her cerebral palsy and current medical status, a small brainstem stroke cannot be completely excluded in spite of lack of other associated findings on neurological examination. Would recommend a noncontrast brain MRI. Again, this patient did have a brain MRI completed in March 2020 and I think she would be able to have an up-to-date brain MRI completed in the context of this hospitalization. She is already on daily low-dose aspirin and atorvastatin and should continue with these medications. Would also check acetylcholine receptor antibodies, binding, blocking, and modulating, although my suspicion for myasthenia gravis is low. I will advise further, if necessary, depending on results of follow-up brain MRI and above labs. Otherwise, continue with supportive medical care, speech and swallowing consultation recommendations. History of Present Illness Reason for Consultation: dysphagia Requesting Physician: [place] Attending Physician: Gildardo Rand MD History of Present Illness The patient is a 68-year-old female admitted to the [facility] with hypoxic respiratory failure, pneumonia, urosepsis, history of paraplegic cerebral palsy and obstructive sleep apnea who has been exhibiting dysphagia prompting question as to whether or not she may have had a brainstem stroke. Onset of patient's dysphagia is not entirely clear and she does not really complain of overt swallowing difficulty, choking, or pain with swallowing. She did have a CT of the head completed on May 10 in the context of altered mental status, the study was negative for hemorrhage or acute process but did reveal generalized atrophy and associated enlargement of the ventricular system. A follow-up CT of the head completed May 17 was also without acute change, revealing atrophy, partial dysgenesis of the corpus callosum, which had also been seen on a prior brain MRI done in March 2020 in the context of diplopia and headache. That particular study was negative for acute or subacute stroke as well. I did independently review these images. Allergies Allergy/AdvReac Type Severity Reaction Status Date / Time adhesive tape Allergy Intermediate ITCHING Verified 05/09/23 21:28 Penicillins Allergy Intermediate Rash Verified 05/09/23 21:28 perflutren AdvReac Intermediate LOWER BACK Verified 05/09/23 21:28 PAIN Home Medications Medication Instructions Recorded Confirmed Type albuterol sulfate 2.5 mg/3 mL 2.5 mg inhalation Q6H PRN Wheezing 04/30/22 05/09/23 History (0.083 %) solution for nebulization aspirin 81 mg chewable tablet 81 mg PO DAILY 04/30/22 05/09/23 History atorvastatin 80 mg tablet 80 mg PO PM 04/30/22 05/09/23 History escitalopram oxalate 20 mg tablet 20 mg PO DAILY 04/30/22 05/09/23 History fluticasone propionate 50 2 spray intranasal DAILY 04/30/22 05/09/23 History mcg/actuation nasal spray,suspension (Flonase Allergy Relief) furosemide 20 mg tablet 20 mg PO DAILY 04/30/22 05/09/23 History gabapentin 300 mg capsule 300 mg PO BID 04/30/22 05/09/23 History gabapentin 300 mg capsule 600 mg PO QPM 04/30/22 05/09/23 History insulin aspart U-100 100 unit/mL See Rx Instructions .Route .COMPLEX 04/30/22 05/09/23 History (3 mL) subcutaneous pen (Novolog FlexPen U-100 Insulin aspart) insulin glargine 100 unit/mL (3 46 unit subcut DAILY 04/30/22 05/09/23 History mL) subcutaneous pen (Lantus Solostar U-100 Insulin) isosorbide mononitrate 30 mg 30 mg PO DAILY 04/30/22 05/09/23 History tablet,extended release 24 hr lidocaine-prilocaine 2.5 %-2.5 % 1 applic topical DIRECTED PRN 04/30/22 05/09/23 History topical cream MEDI-PORT nadolol 40 mg tablet 40 mg PO DAILY 04/30/22 05/09/23 History pantoprazole 20 mg tablet,delayed 40 mg PO BID 04/30/22 05/09/23 History release potassium chloride 10 mEq 10 meq PO QAM 04/30/22 05/09/23 History tablet,extended release silver sulfadiazine 1 % topical 1 applic topical DAILY apply to 04/30/22 3 History cream wound spironolactone 25 mg tablet 50 mg PO DAILY 04/30/22 05/09/23 History trazodone 50 mg tablet 50 mg PO HS 04/30/22 05/09/23 History metformin 500 mg tablet,extended 500 mg PO DAILY 06/04/22 05/09/23 History release 24 hr lactulose 20 gram/30 mL oral 30 g (45 mL) PO TID #1,200 mL 06/08/22 05/09/23 Rx solution dulaglutide 4.5 mg/0.5 mL 4.5 mg subcut WK 09/21/22 05/09/23 History subcutaneous pen injector (Trulicity) levothyroxine 150 mcg tablet 150 mcg PO DAILYBB 09/21/22 05/09/23 History oxybutynin chloride 5 mg tablet 5 mg PO BID 09/21/22 05/09/23 History benzonatate 200 mg capsule 200 mg PO TID PRN Cough 02/25/23 05/09/23 History cetirizine 10 mg tablet (Zyrtec) 5 mg PO DAILY 02/25/23 05/09/23 History docusate sodium 100 mg capsule 100 mg PO DAILY 02/25/23 05/09/23 History fluticasone 250 mcg-salmeterol 50 1 inh inhalation BID 02/25/23 05/09/23 History mcg/dose blistr powdr for inhalation (Advair Diskus) linaclotide 290 mcg capsule 290 mcg PO DAILYBB 02/25/23 05/09/23 History (Linzess) nitroglycerin 0.4 mg sublingual 0.4 mg sublingual DIRECTED PRN 02/25/23 05/09/23 History tablet (Nitrostat) Chest Pain nystatin 100,000 unit/gram topical 1 applic topical TID PRN NEEDED 02/25/23 05/09/23 History powder doxycycline hyclate 100 mg capsule 100 mg PO BID 05/09/23 05/09/23 History kwgxywgn-xhm-eweik ac 400 1 tab PO QAM 05/09/23 05/09/23 History mcg-calcium carb 500 mg-vit K1 20 mcg tablet (Women's 50 Plus Multivitamin) prednisone 20 mg tablet 40 mg PO DAILY 05/09/23 05/09/23 History Patient History Medical History Ambulatory dysfunction Asthma DOES NOT USE INH. REPORTS USING NEB TREATMENTS BID. Bilateral lower extremity edema Cardiac murmur does not follow w/ cardio; echo 11/2017 [place] Cerebral palsy Chronic back pain Chronic pain Dark stools Diplopia reports intermittent x 1-2 weeks. pt reports PCP aware and scheduled for brain MRI 03/11 at [place]. 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 Major depressive disorder, recurrent, moderate Morbid obesity with BMI of 50.0-59.9, adult Obstructive sleep apnea CPAP + OXYGEN AT 2 LPM @ NIGHT On home oxygen therapy 2 LPM @ NIGHT + CPAP Osteoarthritis Pancreatic cyst Poor historian SOB (shortness of breath) on exertion Venous insufficiency Wheelchair bound Surgical History H/O wisdom tooth extraction History of Achilles tendon repair History of section History of colonoscopy History of dilatation and curettage History of esophagogastroduodenoscopy (EGD) EUS 02/22/2019 [facility] History of hip surgery History of strabismus surgery History of tooth extraction Family History Father Family history of diabetes mellitus Myocardial infarction, Onset Age: 61 Mother Myocardial infarction, Onset Age: 72 Sister Myocardial infarction Social History Smoking Status: Never smoker Second Hand Exposure: No; Do You Dip or Chew Tobacco: No; Tobacco Cessation Education Requested by Patient: No Hx Alcohol Use: No Hx Substance Use: No Preferred Language: Cantonese Swazi Communication Ability: Effective Communication Ability Comment: [employer] Required: No Beliefs That Will Affect Care: None marital status: Current Living Situation: Spouse Current Living Situation Comment: Reports home health assists 5 times a week Other Information That Helps Us Care for You: No Feels Safe at Home: Yes Safety Concerns: Feels Safe At This Time Assistive Devices: CPAP, Hospital Bed, Mechanical Lift, Oxygen - at Night, Scooter/Electric Scooter and Wheelchair Review of Systems Constitutional: no fever and no chills Eyes: no blind spots and no diplopia Ear, Nose, Mouth, Throat: no hearing loss Respiratory: + cough and + dyspnea Cardiovascular: no chest pain and no palpitations Gastrointestinal: no nausea and no vomiting Genitourinary: no dysuria Musculoskeletal: + muscle weakness; no neck pain and no myalgia Integumentary: no rash and no lesions Neurologic: + gait abnormality and + localized weakness; no headache(s) Psychiatric: no depression and no anxiety Hematologic / Lymphatic: no easy bleeding and no easy bruising Exam (Neuro) Constitutional: well nourished; no acute distress Eyes: normal visual tuttle by confrontation, PERRL and EOM intact bilaterally Neurologic: Oriented to:: Person and Place; negative Time Memory: Short Term Intact and Remote Intact Attention: Span Intact and Concentration Intact Speech Fluency: negative Dysarthria or Dysfluency Speech Aphasia: negative Aphasia Fund of Knowledge: Past History and Vocabulary Cranial Nerves: Normal II, III, IV, , V, VII, VIII, IX, X, XI and XII Motor Strength: Normal Upper Extremities; negative Normal Lower Extremities Motor Tone: Normal Upper Extremities; negative Normal Lower Extremities Muscle Bulk/Involuntary Movements: No Involuntary Movements and Muscle Atrophy Sensation: Light Touch Intact, Pain/Temperature Intact and Proprioception Intact Coordination: Heel-Sommers Abnormal; negative Dysdiadochokinesia or Finger-Nose Abnormal Deep Tendon Reflexes: Rt Triceps: 2+, Lt Triceps: 2+, Rt Biceps: 2+, Lt Biceps: 2+, Rt Brachioradialis: 2+, Lt Brachioradialis: 2+, Rt Patellar: 2+, Lt Patellar: 2+, Rt Ankle: 1+ and Lt Ankle: 1+ Special Tests: negative Babinski Present Details: Lower extremity paraplegia noted, right greater than left Results & Data Vital Signs (Past 12 Hours) Vital Signs Temp Pulse Pulse Resp BP BP BP 05/18/23 08:38 82 98/71 L 05/18/23 07:43 37 C 82 22 98/71 L 05/18/23 07:04 71 16 05/18/23 04:04 37.4 C 72 18 103/78 05/18/23 03:07 70 16 103/76 05/18/23 02:56 72 92/52 L 05/18/23 01:54 72 92/52 L 05/18/23 00:13 36.7 C 80 20 85/64 L Pulse Ox O2 Del Method O2 Flow Rate 05/18/23 08:38 05/18/23 07:43 92 Nasal Cannula 3 05/18/23 07:04 91 Nasal Cannula 2.5 05/18/23 04:04 93 Nasal Cannula 3.0 05/18/23 03:07 94 Nasal Cannula 4 05/18/23 02:56 05/18/23 01:54 92 Nasal Cannula 4 05/18/23 00:13 93 Nasal Cannula 3.0 Laboratory Results WBC 4.90, hemoglobin 9.2, hematocrit 28.1, platelet count 53, sodium 139, potassium 3.4, BUN 11, creatinine 0.65, glucose 133, calcium 1.[address] of the head completed May 17 and May 10 as well as brain MRI completed March 11, 2020 reviewed and are as described in the history of present illness. Electrocardiogram completed May 12 revealed a normal sinus rhythm. An echocardiogram completed May 10 was technically limited, normal left ventricular size, moderate concentric LVH, EF 65 to 70%, left atrium mildly dilated, no ASD Coding Level of Care Code 28868 INT INP/OBS CARE MIN Diagnoses Dysphagia R13.10 Cerebral palsy G80.9 Cerebral palsy type: unspecified type Dysgenesis of corpus callosum Q04.8 (2) Cerebral palsy Cerebral palsy type: unspecified type Qualified Code(s): G80.9 - Cerebral palsy, unspecified
[2023-05-18] MEDS: ERTAPENEM SODIUM 1,000 MG in SYRINGE 0 ML IV SCH (11:19)
[2023-05-18] MEDS: DOXYCYCLINE HYCLATE 100 MG in DEXTROSE 5% 100 ML IV SCH (12:31)
--- NOTE | 2023-05-18 14:51 | Palliative Care Progress Note ---
Date of Service May 18, 2023 Assessment & Plan (1) Dysphagia: (2) Cough productive of purulent sputum: (3) Dyspnea and respiratory abnormalities: (4) Palliative care by specialist: (5) Advanced care planning/counseling discussion: Plan: ACP x 40min at bedside, face to face with pt We discussed the recurrent dysphagia and aspiration She si very clear she does not want tube feedings or ARMEN she would prefer to aspirate and eat for comfort and pleasure primary team made aware we spoke about code status. Reviewed CPR survival: Only about 10% of patients who have agf-qs-gwgesrib sudden cardiac arrest survive to hospital discharge, with many survivors having neurologic impairment. This rate is even lower among patients with serious coexisting conditions, ie chance of survival to hospital discharge for in-hospital CPR in older people is low to moderate (15%) and decreases with age, comorbidities, performance status and frailty: for pts > 70 yo, more than half of the patients who initially survived resuscitation in the hospital before hospital discharge. The pooled survival to discharge after in-hospital CPR was 18% for patients between 70 and 79 years old, 15% for patients between 80 and 89 years old and 11% for patients of 90 years and older. (Milton ALCARAZY, Saravanan LJ, Amy F, et al. Trends in short- and long-term survival among ghy-ey-kkehfftb cardiac arrest patients alive at hospital arrival. Circulation 2014;130:7819-8843. AND Freddy C, Simon T, Patrick R, et al. Performance of clinical risk scores to predict mortality and neurological outcome in cardiac arrest patients. Resuscitation 2019;136:21-29.) Discussed that her chronic aspiration = chronic resp failure = leads to need for poss CPR which ultimately will not reverse or cure the issues creating the need for CPR. She wants to think about this but is sure she does not want prolonged life support or on machines. She perceives life support as an intervention she can have for "one round" or a defined time such as a few hours to make things better and recover to better baseline, which i advised would not be the case. She is leaning towards DNR/DNI but wants to review with today/tomorrow. Plan ACP as noted above NO peg desired Remains full code for now, wants to speak more with next 1-2 days Thank you for allowing us to participate in the ongoing care of this patient. Please don't hesitate to call or page with any additional concerns. Dr. 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 denies nausea +bronchitic cough Review of Systems Review of Systems: All systems reviewed & are unremarkable except as noted in Subjective Physical Exam Constitutional: + acute distress, + ill appearing and + edematous Eyes: PERRL, conjunctivae normal, anicteric sclerae ENMT: Mouth: + poor dentition Mallampati Class: III Throat: uvula midline Neck: trachea midline, no thyromegaly Respiratory: + respiratory distress (estiven with coughing), + uses accessory muscles, + cough, able to speak in complete sentences and symmetric chest movement Auscultation: + rhonchi (coarse bilat rhonchi, faint wheezing) very bronchitic cough, deep and rattling; pt unable to expectorate secretions Cardiovascular: RRR, no murmur, no edema Gastrointestinal (Abdomen): normal bowel sounds, soft, nontender, no hepatosplenomegaly Musculoskeletal: generalized weakness Skin: pale, cool, scattered ecchymoses Neurologic: AAOx3. garbled speech at times Results & Data Vital Signs (Past 12 Hours) Vital Signs Temp Pulse Pulse Resp BP BP BP 05/18/23 13:01 37.3 C 76 22 102/49 L 05/18/23 11:13 74 18 05/18/23 10:54 67 05/18/23 10:46 05/18/23 08:38 82 98/71 L 05/18/23 07:43 37 C 82 22 98/71 L 05/18/23 07:04 71 16 05/18/23 04:04 37.4 C 72 18 103/78 05/18/23 03:07 70 16 103/76 05/18/23 02:56 72 92/52 L Pulse Ox O2 Del Method O2 Flow Rate 05/18/23 13:01 91 Nasal Cannula 3 05/18/23 11:13 91 Nasal Cannula 2 05/18/23 10:54 05/18/23 10:46 Nasal Cannula 4 05/18/23 08:38 05/18/23 07:43 92 Nasal Cannula 3 05/18/23 07:04 91 Nasal Cannula 2.5 05/18/23 04:04 93 Nasal Cannula 3.0 05/18/23 03:07 94 Nasal Cannula 4 05/18/23 02:56 Laboratory Results data reviewed Diagnostic Findings data reviewed PG Care Time/CCT Total # of Minutes Spent Total Time Spent: 70 Total Time Spent with Patient: Total time spent is greater than 50% in coordination of care (as documented) at patient's floor/unit and/or counseling patient: Advanced Care Planning 02625 Advanced Care Planning 30 Min [place] [address] SUB INP/OBS CARE 3/50MIN Patient Type Established History Comprehensive Exam Comprehensive Medical Decision Making High Complexity Diagnoses Dysphagia R13.10 Cough productive of purulent sputum R05.8 Dyspnea and respiratory abnormalities R06.00; R06.89 Palliative care by specialist Z51.5 Advanced care planning/counseling discussion Z71.89 Additional Codes Advanced Care Planning - 99028 Advanced Care Planning 30 Min: 02599 Advanced C are Planning 30 Min ([id number])
[2023-05-18] MEDS ORDERED: SODIUM CHLORIDE 0.9% 250 ML IV ONE (17:45)
[2023-05-18] MEDS: D5NSS + 20MEQ KCL 20 MEQ/1,000 ML BAG IV SCH (17:56)
--- NOTE | 2023-05-18 18:19 | Hospitalist Progress Note ---
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 continue D5W IVF 05/17 discussed case at length with speech therapy service today, including VFSS, recent bedside eval presentation felt to be a possible brainstem infarct patient may not do well with MRI, Repeat CT head ordered Neuro eval also requested repeat bedside speech eval today requested , patient did better, taking in food, no overt signs of aspiration i also assessed patient myself- given chocolate pudding and water- no signs of aspiration speech Tx recommending pureed diet with mild thickened liquids will advance diet 05/18 tolerating pureed diet Speech therapy recommend further advancing diet today monitor closely on Vanco + Ertapenem + Doxycycline IV day 05/21 Urinary Tract Infection Abdominal pain resolved UA suggestive of UTI History of ESBL UTI Though patient did not meet 2 SIRS criteria on admission (Had only leukopenia), Sepsis is still a possibility considering possible UTI/pneumonia and lactic acidosis Possible Sepsis due to aspiration pneumonia and UTI Urine culture growing ESBL Klebsiella and Enterococcus fecalis Lactic acidosis likely due to infectious process in the background of cirrhosis and home metformin. Lactate peaked at 5. Considering history of cirrhosis and abd CT showing moderate ascites, IR evaluated for possible diagnostic tap but noted scant ascites too small to tap ID recs noted. On 05/12/23, Pharm discussed with ID and recommended to continue Ertapenem and vanco for now. Plan to switch to Augmentin once able to do po Plan to stop doxycycline if legionella is negative 05/18 on above antibiotics Hyperkalemia on admission may be related to home potassium/aldactone. Hypokalemia. Replete and monitor Was reported to have had confusion per on day of admission CT head did not show any acute abnormalities Encephalopathy, now resolved, may be related to current illness Episode of SVT on Metoprolol IV 2.5mg IV q6h Cardiology on board Hypotension BP was low on admission. Home nadolol on hold 05/18 gently IV fluids NAFLD Cirrhosis On lactulose On lasix, aldactone Continue to hold home potassium for now Po meds on hold today as above Mood disorder Fibromyalgia PO med on hold today as above Hyperlipidemia Po med on hold today as above Chronic pancytopenia Likely secondary to cirrhosis Gets regular PRBC approximately every 2 weeks per patient via chest port Hemoglobin at baseline Monitor Hypothyroidism IV levothyroxine while npo Diabetes mellitus Hold home antidiabetic agents Continue ISS per protocol Monitor Elevated troponin Maybe due to demand ischemia from infection TTE noted technically difficult, conc LVH, EF 65-70%, mildly dilated LA Card consulted in viewed of NSVT on tele on 05/12/23 Metoprolol started by Cardiology. DVT prophylaxis. Hep sq. Monitor thrombocytopenia plan of care discussed with patient in detail all questions answered she is understanding, agreeable, comfortable with the plan of care Admission and Anticipated Discharge Date Admission Date: May 09, 2023 Subjective ff up for pneumonia, UTI, dysphagia, etc seen resting in bed, comfortable sitting up on 2 L states she feels ok overall tolerating pureed diet, denies coughing, choking hungry, requesting to advance diet no dyspnea, chest pain, palpitations, dizziness no other symptoms Review of Systems Review of Systems: all noted and negative except for above Physical Exam Physical Exam: General- oriented x 2, not in distress, speaks in sentences with no effort or accessory muscle use Eyes- anicteric Neck- no JVD Lungs- clear breath sounds bilaterally, no rales/wheezes Heart- normal rate, regular rhythm; no murmurs Abdomen- normal bowel sounds, nondistended, soft, nontender Extremities- mild pretibial edema, no calf tenderness Neuro- alert, oriented x 3; no gross focal neurologic deficits Skin- warm & dry Results & Data Results & Data Vital Signs (Past 12 Hours) Vital Signs Temp Pulse Pulse Resp BP BP BP 05/18/23 15:42 37.4 C 79 17 84/54 L 05/18/23 15:16 72 18 05/18/23 13:01 37.3 C 76 22 102/49 L 05/18/23 11:13 74 18 05/18/23 10:54 67 05/18/23 10:46 05/18/23 08:38 82 98/71 L 05/18/23 07:43 37 C 82 22 98/71 L 05/18/23 07:04 71 16 Pulse Ox O2 Del Method O2 Flow Rate 05/18/23 15:42 91 Nasal Cannula 2 05/18/23 15:16 92 Nasal Cannula 2 05/18/23 13:01 91 Nasal Cannula 3 05/18/23 11:13 91 Nasal Cannula 2 05/18/23 10:54 05/18/23 10:46 Nasal Cannula 4 05/18/23 08:38 05/18/23 07:43 92 Nasal Cannula 3 05/18/23 07:04 91 Nasal Cannula 2.5 all noted and reviewed including below
--- NOTE | 2023-05-19 00:14 | Magnetic Resonance Report ---
Exam(s): MRI HEAD Without Contrast EXAM: MR Head Without Intravenous Contrast CLINICAL HISTORY: Reason for exam: dysphagia, r/o acute cva. TECHNIQUE: Magnetic resonance images of the head/brain without intravenous contrast in multiple planes. COMPARISON: Head CT of 05/10/2023 and 05/17/2023 FINDINGS: Brain: Mild periventricular white matter changes, likely related to chronic microangiopathy. No hemorrhage. No acute infarct. Ventricles: Unremarkable. No ventriculomegaly. Bones/joints: Unremarkable. Sinuses: Near complete opacification of bilateral sphenoid sinuses. No acute sinusitis. Mastoid air cells: Unremarkable as visualized. No mastoid effusion. Orbits: Unremarkable as visualized. IMPRESSION: 1. Mild periventricular white matter changes, likely related to chronic microangiopathy. 2. Near complete opacification of bilateral sphenoid sinuses. Electronically signed by: Biju Sanchez M.D. 05/19/23 00:13 AM
[2023-05-19] MEDS: DOXYCYCLINE HYCLATE 100 MG in DEXTROSE 5% 100 ML IV SCH ×2 (00:29→12:24)
[2023-05-19] MEDS: METOPROLOL TARTRATE 1 MG/ML VIAL IV SCH ×4 (02:54→21:07)
[2023-05-19] MEDS: VANCOMYCIN HCL 1,500 MG in SODIUM CHLORIDE 0.9% 500 ML IV SCH (05:08)
[2023-05-19 06:15] LABS: Partial Thromboplastin Ratio 1.6
[2023-05-19 06:18] LABS: Partial Thromboplastin Time 44.7 Seconds (21.0-31.0)
--- NOTE | 2023-05-19 06:19 | Pharmacy Report ---
Pharmacy Health system Short Note - Date of Service May 19, 2023 - Assessment & Plan Short Note: Received notification from floor RN that "critical" vancomycin level returned this AM. "Random" vancomycin level of 26.2 was reported by lab, however upon discussion further discussion with RN it was discovered that level was drawn while vancomycin was infusing thru the patient's port. Patient also is receiving vancomycin via this port. Advised RN that it would be okay to continue remainder of vancomycin dose and we will check another level to determine if dose adjustment needed. Will pass on report to floor based h at shift change for f/u level ordering. Pharmacy will continue to follow and will adjust dose/frequency as necessary. Thank you.
[2023-05-19] MEDS: D5NSS + 20MEQ KCL 20 MEQ/1,000 ML BAG IV SCH (06:53)
[2023-05-19] MEDS: ALBUT/IPRATROP 3MG/0.5MG NEB 3 ML VIAL NEB SCH ×4 (07:13→19:21)
[2023-05-19] MEDS: PANTOprazole 40 MG in SYRINGE 0 ML IV SCH ×2 (07:50→21:29)
[2023-05-19] MEDS: FUROSEMIDE INJ 20 MG/2 ML VIAL IV SCH (07:50)
[2023-05-19] MEDS: FLUTICASONE/VILANTEROL 200/25MCG 14 PUFFS/INHALER INH SCH (07:51)
[2023-05-19] MEDS: FLUTICASONE PROPIONATE NA SPR 16 GM BTL SCH (07:51)
[2023-05-19] MEDS: HEPARIN SOD 5,000 UNIT/0.5 ML VIAL SQ SCH ×2 (07:52→21:05)
[2023-05-19] MEDS: LIDOCAINE 5% 1 PATCH TD SCH (07:52)
[2023-05-19] MEDS: LANTUS PER UNIT CHARGE SQ SCH (07:55)
[2023-05-19] MEDS: INSULIN ASPART PER UNIT CHARGE SC SCH ×4 (07:55→21:11)
[2023-05-19 08:51] LABS: BUN Creatinine Ratio 14.3 (10-20); Creatinine Clr Calc Pharmacy 100.9 ml/min; Est GFR (Non-African American) 95.8 ml/min; Potassium 3.5 mmol/L (3.5-5.1)
[2023-05-19] MEDS: ADVANCED PROBIOTIC 1250 MG CAPSULE PO SCH (09:28)
[2023-05-19] MEDS: ASPIRIN 300 MG SUPP PR SCH (10:25)
[2023-05-19] MEDS: ERTAPENEM SODIUM 1,000 MG in SYRINGE 0 ML IV SCH (12:24)
--- NOTE | 2023-05-19 14:17 | Communication Note ---
Date of Service: May 19, 2023 Telemetry reviewed. Sinus rhythm in the 60s noted without recurrent ventricular tachycardia since 1 minute episode noted at 5:55 AM on 05/12/2023. Patient intermittently receiving IV metoprolol, with hold parameters for heart rate less than 60 and systolic blood pressure less than 100 mm Hg. Her episode of wide-complex tachycardia is felt to have been due to her underlying acute illness, and has noted no recurrence observed. Patient still not tolerating oral pills. Would recommend transitioning her to metoprolol succinate at a dose of 12.5 mg daily, titrating to 25 mg daily as heart rate and blood pressure allows when able to tolerate oral medications. Call with questions or concerns.
--- NOTE | 2023-05-19 17:52 | Hospitalist Progress Note ---
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 continue D5W IVF 05/17 discussed case at length with speech therapy service today, including VFSS, recent bedside eval presentation felt to be a possible brainstem infarct patient may not do well with MRI, Repeat CT head ordered Neuro eval also requested repeat bedside speech eval today requested , patient did better, taking in food, no overt signs of aspiration i also assessed patient myself- given chocolate pudding and water- no signs of aspiration speech Tx recommending pureed diet with mild thickened liquids will advance diet 05/19 tolerating minced and moist diet Still on 4 L of oxygen via nasal cannula on Vanco + Ertapenem + Doxycycline IV day 06/20 We will start reintroducing oral medications Urinary Tract Infection Abdominal pain resolved UA suggestive of UTI History of ESBL UTI Though patient did not meet 2 SIRS criteria on admission (Had only leukopenia), Sepsis is still a possibility considering possible UTI/pneumonia and lactic acidosis Possible Sepsis due to aspiration pneumonia and UTI Urine culture growing ESBL Klebsiella and Enterococcus fecalis Lactic acidosis likely due to infectious process in the background of cirrhosis and home metformin. Lactate peaked at 5. Considering history of cirrhosis and abd CT showing moderate ascites, IR evaluated for possible diagnostic tap but noted scant ascites too small to tap ID recs noted. On 05/12/23, Pharm discussed with ID and recommended to continue Ertapenem and vanco for now. Plan to switch to Augmentin once able to do po Plan to stop doxycycline if legionella is negative 05/19 on above antibiotics Hyperkalemia on admission may be related to home potassium/aldactone. Hypokalemia. Replete and monitor Was reported to have had confusion per on day of admission CT head did not show any acute abnormalities Encephalopathy, now resolved, may be related to current illness Episode of SVT on Metoprolol IV 2.5mg IV q6h Cardiology on board Transition to metoprolol succinate 2.5 mg p.o. daily starting tomorrow Hypotension BP was low on admission. Home nadolol on hold 05/19 Improving, stop IV fluids NAFLD Cirrhosis On lactulose--> resume On lasix, aldactone--> on hold Mood disorder Fibromyalgia PO med on hold today as above Hyperlipidemia Po med on hold today as above Chronic pancytopenia Likely secondary to cirrhosis Gets regular PRBC approximately every 2 weeks per patient via chest port Hemoglobin at baseline Monitor Hypothyroidism IV levothyroxine while npo Diabetes mellitus Hold home antidiabetic agents Continue ISS per protocol Monitor Elevated troponin Maybe due to demand ischemia from infection TTE noted technically difficult, conc LVH, EF 65-70%, mildly dilated LA Card consulted in viewed of NSVT on tele on 05/12/23 Metoprolol started by Cardiology. DVT prophylaxis. Hep sq. Monitor thrombocytopenia Disposition pending plan of care discussed with patient in detail all questions answered she is understanding, agreeable, comfortable with the plan of care Admission and Anticipated Discharge Date Admission Date: May 09, 2023 Subjective Follow-up for aspiration pneumonia, UTI, etc. Seen resting in bed, comfortable, not in distress On 4 L of oxygen by nasal cannula Awake and alert, conversant, answering questions appropriately States she is tolerating soft diet well Appetite improving but still not great Denies shortness of breath, cough, chest pain No other new symptom Review of Systems Review of Systems: all noted and negative except for above Physical Exam Physical Exam: General- oriented x 2, not in distress, speaks in sentences with no effort or accessory muscle use Eyes- anicteric Neck- no JVD Lungs-mild rhonchi at the bases, no wheezing, good air entry bilaterally Heart- normal rate, regular rhythm; no murmurs Abdomen- normal bowel sounds, nondistended, soft, nontender Extremities- no pretibial edema, no calf tenderness Neuro- alert, oriented x2; no gross focal neurologic deficits Skin- warm & dry Results & Data Results & Data Vital Signs (Past 12 Hours) Vital Signs Temp Pulse Pulse Resp BP BP Pulse Ox 05/19/23 15:45 66 100/66 05/19/23 15:43 36.6 C 63 20 134/63 95 05/19/23 15:36 66 05/19/23 15:12 67 18 96 05/19/23 12:28 37.0 C 77 20 113/61 90 05/19/23 11:13 67 20 91 05/19/23 08:00 73 05/19/23 08:00 05/19/23 08:00 36.7 C 66 21 95/67 L 93 05/19/23 07:14 77 18 91 O2 Del Method O2 Flow Rate 05/19/23 15:45 05/19/23 15:43 Nasal Cannula 4 05/19/23 15:36 05/19/23 15:12 Nasal Cannula 4 05/19/23 12:28 Nasal Cannula 4 05/19/23 11:13 Nasal Cannula 4 05/19/23 08:00 05/19/23 08:00 Nasal Cannula 3 05/19/23 08:00 Nasal Cannula 3 05/19/23 07:14 Nasal Cannula 3 all noted and reviewed including below
[2023-05-19] MEDS: LACTULOSE SYRUP 30 GM/45 ML UDP PO SCH (21:20)
[2023-05-19] MEDS: oxyBUTYnin chloride 5 MG TAB PO SCH (23:01)
[2023-05-19] MEDS: PANTOprazole 40 MG TAB PO SCH (23:01)
[2023-05-20] MEDS: DOXYCYCLINE HYCLATE 100 MG in DEXTROSE 5% 100 ML IV SCH ×2 (02:10→12:05)
[2023-05-20] MEDS: METOPROLOL TARTRATE 1 MG/ML VIAL IV SCH ×2 (03:37→08:34)
[2023-05-20] MEDS: VANCOMYCIN HCL 1,500 MG in SODIUM CHLORIDE 0.9% 500 ML IV SCH (06:32)
[2023-05-20] MEDS: ALBUT/IPRATROP 3MG/0.5MG NEB 3 ML VIAL NEB SCH ×4 (07:04→19:32)
[2023-05-20] MEDS: LEVOTHYROXINE SODIUM 150 MCG TABLET PO SCH (07:58)
[2023-05-20] MEDS: oxyBUTYnin chloride 5 MG TAB PO SCH ×2 (08:01→21:07)
[2023-05-20] MEDS: PANTOprazole 40 MG TAB PO SCH ×2 (08:01→21:07)
[2023-05-20] MEDS: FLUTICASONE PROPIONATE NA SPR 16 GM BTL SCH (08:02)
[2023-05-20] MEDS: FLUTICASONE/VILANTEROL 200/25MCG 14 PUFFS/INHALER INH SCH (08:02)
[2023-05-20] MEDS: HEPARIN SOD 5,000 UNIT/0.5 ML VIAL SQ SCH ×2 (08:02→21:07)
[2023-05-20 08:17] LABS: Hematocrit (blood only) 27.7 % (37.0-47.0); Hemoglobin 9.1 g/dl (12.0-16.0); Mean Corpuscular Hemoglobin 36.8 pg (25.0-34.0); Mean Corpuscular Hgb Conc 32.9 g/dL (32.0-36.0); Mean Corpuscular Volume 112.1 fL (80.0-100.0); Mean Platelet Volume 13.6 fL (9.4-12.4); Platelet Count 43 K/uL (130-400); RDW Coefficient of Variation 18.7 % (11.5-14.5); RDW Standard Deviation 76.4 fL (36.4-46.3); Red Blood Count 2.47 M/uL (4.20-5.40); White Blood Count 4.36 K/ul (4.8-10.8)
[2023-05-20 08:33] LABS: Partial Thromboplastin Ratio 1.3; Partial Thromboplastin Time 35.5 Seconds (21.0-31.0)
[2023-05-20] MEDS: INSULIN ASPART PER UNIT CHARGE SC SCH ×4 (09:20→21:27)
[2023-05-20] MEDS: LIDOCAINE 5% 1 PATCH TD SCH (09:25)
[2023-05-20] MEDS: LACTULOSE SYRUP 30 GM/45 ML UDP PO SCH ×3 (09:31→21:02)
[2023-05-20] MEDS: ADVANCED PROBIOTIC 1250 MG CAPSULE PO SCH (09:31)
[2023-05-20] MEDS: ASPIRIN 300 MG SUPP PR SCH (09:34)
[2023-05-20] MEDS: LANTUS PER UNIT CHARGE SQ SCH (09:59)
[2023-05-20] MEDS: ACETAMINOPHEN 500 MG TAB PO PRN (13:46)
--- NOTE | 2023-05-20 16:19 | Hospitalist Progress Note ---
Date of Service May 20, 2023 Assessment & Plan (1) Acute hypoxemic respiratory failure: Plan: per previous attending notes with addendum: Aspiration pneumonia Reported vomiting episodes at home CXR noted chronic interstitial thickening, bibasilar scarring/atelectasis CT abd/pelvis noted dependent consolidation in right greater than left lower lobes Had coughing bouts while eating and diet was initially changed to pureed Video swallow study was limited due to difficulty positioning but did show penetration with multiple consistencies [employer] reevaluated and made NPO on 05/12/23 Aspiration precautions Hypernatremia improving, Na is 147 today. continue D5W IVF 05/17 discussed case at length with speech therapy service today, including VFSS, recent bedside eval presentation felt to be a possible brainstem infarct patient may not do well with MRI, Repeat CT head ordered Neuro eval also requested repeat bedside speech eval today requested , patient did better, taking in food, no overt signs of aspiration i also assessed patient myself- given chocolate pudding and water- no signs of aspiration speech Tx recommending pureed diet with mild thickened liquids will advance diet 05/19 tolerating minced and moist diet Still on 4 L of oxygen via nasal cannula on Vanco + Ertapenem + Doxycycline IV day 06/20 We will start reintroducing oral medications tolerating diet well completed Vanco last day of Ertapenem 4 more days of Doxy Urinary Tract Infection Abdominal pain resolved UA suggestive of UTI History of ESBL UTI Though patient did not meet 2 SIRS criteria on admission (Had only leukopenia), Sepsis is still a possibility considering possible UTI/pneumonia and lactic acidosis Possible Sepsis due to aspiration pneumonia and UTI Urine culture growing ESBL Klebsiella and Enterococcus fecalis Lactic acidosis likely due to infectious process in the background of cirrhosis and home metformin. Lactate peaked at 5. Considering history of cirrhosis and abd CT showing moderate ascites, IR evaluated for possible diagnostic tap but noted scant ascites too small to tap ID recs noted. On 05/12/23, Pharm discussed with ID and recommended to continue Ertapenem and vanco for now. Plan to switch to Augmentin once able to do po Plan to stop doxycycline if legionella is negative 05/19 on above antibiotics Hyperkalemia on admission may be related to home potassium/aldactone. Hypokalemia. Replete and monitor Was reported to have had confusion per on day of admission CT head did not show any acute abnormalities Encephalopathy, now resolved, may be related to current illness Tenderness, L Big toe no signs of infection on clinical exam obtain xray of the foot/toes Episode of SVT on Metoprolol IV 2.5mg IV q6h Cardiology on board Transition to metoprolol succinate 2.5 mg p.o. daily Hypotension BP was low on admission. Home nadolol on hold 05/20 Improving, stop IV fluids NAFLD Cirrhosis On lactulose--> resume On lasix, aldactone--> on hold Mood disorder Fibromyalgia PO med on hold today as above Hyperlipidemia Po med on hold today as above Chronic pancytopenia Likely secondary to cirrhosis Gets regular PRBC approximately every 2 weeks per patient via chest port Hemoglobin at baseline Monitor Hypothyroidism levothyroxine Diabetes mellitus Hold home antidiabetic agents Continue ISS per protocol Monitor Elevated troponin Maybe due to demand ischemia from infection TTE noted technically difficult, conc LVH, EF 65-70%, mildly dilated LA Card consulted in viewed of NSVT on tele on 05/12/23 Metoprolol started by Cardiology. DVT prophylaxis. Hep sq. Monitor thrombocytopenia Disposition patient's would like patient to return home when medically stable plan of care discussed with patient in detail all questions answered she is understanding, agreeable, comfortable with the plan of care Admission and Anticipated Discharge Date Admission Date: May 09, 2023 Subjective ff up for pneumonia, etc seen resting in bed, comfortable on 2 L at bedside states she feels fine overall tolerating diet well but appetite not great no chest pain, dyspnea, palpitations, dizziness reports L toe tenderness no other symptoms Review of Systems Review of Systems: all noted and negative except for above Physical Exam Physical Exam: General- oriented x 3, not in distress, speaks in sentences with no effort or accessory muscle use Eyes- anicteric Neck- no JVD Lungs- clear breath sounds bilaterally, no rales/wheezes Heart- normal rate, regular rhythm; no murmurs Abdomen- normal bowel sounds, nondistended, soft, nontender Extremities- no pretibial edema, no calf tenderness Left foot- big toe: no edema, warmth, erythema, (+) tenderness Neuro- alert, oriented x 3; no gross focal neurologic deficits Skin- warm & dry Results & Data Results & Data Vital Signs (Past 12 Hours) Vital Signs Temp Pulse Pulse Resp BP BP Pulse Ox 05/20/23 15:21 70 16 95 05/20/23 11:44 59 L 05/20/23 11:23 36.9 C 72 19 99/53 L 96 05/20/23 11:16 72 16 96 05/20/23 09:35 05/20/23 08:34 73 91/54 L 05/20/23 07:44 36.7 C 63 19 91/54 L 95 05/20/23 07:06 63 18 96 O2 Del Method O2 Flow Rate 05/20/23 15:21 Nasal Cannula 2 05/20/23 11:44 05/20/23 11:23 Nebulizer 05/20/23 11:16 Nasal Cannula 3 05/20/23 09:35 Nasal Cannula 3 05/20/23 08:34 05/20/23 07:44 Nasal Cannula 3 05/20/23 07:06 Nasal Cannula 4 all noted and reviewed including below
--- NOTE | 2023-05-20 17:21 | XRay Report ---
LEFT FOOT 2 VIEWS CLINICAL HISTORY: Left first toe pain. FINDINGS: AP oblique and crosstable lateral portable views of the left foot are compared to study jay ed 11/07/2017. The examination is degraded by inability to properly position the patient. The skeletal structures are heterogeneously osteopenic. No acute fracture is seen. Moderate osteoarthritic change is noted throughout the foot. A high arch is observed. No erosive disease is identified. Soft tissue edema is noted. Soft tissue calcifications are seen along the course of the Achilles tendon. IMPRESSION: No acute bony abnormality is identified. Electronically signed by: Selvin Barroso M.D. 05/20/2023 5:19 PM
[2023-05-21] MEDS: DOXYCYCLINE HYCLATE 100 MG in DEXTROSE 5% 100 ML IV SCH (01:48)
[2023-05-21] MEDS: VANCOMYCIN HCL 1,500 MG in SODIUM CHLORIDE 0.9% 500 ML IV SCH (06:16)
[2023-05-21] MEDS: LEVOTHYROXINE SODIUM 150 MCG TABLET PO SCH (06:20)
[2023-05-21 06:54] LABS: Creatinine Clr Calc Pharmacy 84.2 ml/min; Est GFR (African American) 106.3 ml/min; Est GFR (Non-African American) 91.7 ml/min
[2023-05-21] MEDS: ALBUT/IPRATROP 3MG/0.5MG NEB 3 ML VIAL NEB SCH ×4 (07:02→19:44)
[2023-05-21 07:11] LABS: Partial Thromboplastin Ratio 1.2
[2023-05-21] MEDS: ADVANCED PROBIOTIC 1250 MG CAPSULE PO SCH (09:04)
[2023-05-21] MEDS: PANTOprazole 40 MG TAB PO SCH ×2 (09:04→21:08)
[2023-05-21] MEDS: FLUTICASONE PROPIONATE NA SPR 16 GM BTL SCH (09:04)
[2023-05-21] MEDS: HEPARIN SOD 5,000 UNIT/0.5 ML VIAL SQ SCH ×2 (09:05→21:09)
[2023-05-21] MEDS: oxyBUTYnin chloride 5 MG TAB PO SCH ×2 (09:05→21:10)
[2023-05-21] MEDS: METOPROLOL SUCC 25MG EXT REL TAB PO SCH (09:05)
[2023-05-21] MEDS: LACTULOSE SYRUP 30 GM/45 ML UDP PO SCH ×3 (09:06→21:08)
[2023-05-21] MEDS: FLUTICASONE/VILANTEROL 200/25MCG 14 PUFFS/INHALER INH SCH (09:06)
--- NOTE | 2023-05-21 09:22 | Hospitalist Progress Note ---
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 continue D5W IVF 05/17 discussed case at length with speech therapy service today, including VFSS, recent bedside eval presentation felt to be a possible brainstem infarct patient may not do well with MRI, Repeat CT head ordered Neuro eval also requested repeat bedside speech eval today requested , patient did better, taking in food, no overt signs of aspiration i also assessed patient myself- given chocolate pudding and water- no signs of aspiration speech Tx recommending pureed diet with mild thickened liquids will advance diet 05/19 tolerating minced and moist diet Still on 4 L of oxygen via nasal cannula on Vanco + Ertapenem + Doxycycline IV day 06/20 We will start reintroducing oral medications 05/20 tolerating diet well completed Vanco last day of Ertapenem 4 more days of Doxy 05/21 Tolerating diet well Remains on 2 L of oxygen Completed vancomycin and ertapenem Continue doxycycline Anticipate discharge tomorrow Urinary Tract Infection Abdominal pain resolved UA suggestive of UTI History of ESBL UTI Though patient did not meet 2 SIRS criteria on admission (Had only leukopenia), Sepsis is still a possibility considering possible UTI/pneumonia and lactic acidosis Possible Sepsis due to aspiration pneumonia and UTI Urine culture growing ESBL Klebsiella and Enterococcus fecalis Lactic acidosis likely due to infectious process in the background of cirrhosis and home metformin. Lactate peaked at 5. Considering history of cirrhosis and abd CT showing moderate ascites, IR evaluated for possible diagnostic tap but noted scant ascites too small to tap ID recs noted. On 05/12/23, Pharm discussed with ID and recommended to continue Ertapenem and vanco for now. Plan to switch to Augmentin once able to do po Plan to stop doxycycline if legionella is negative 05/19 on above antibiotics Hyperkalemia on admission may be related to home potassium/aldactone. Hypokalemia. Replete and monitor Was reported to have had confusion per on day of admission CT head did not show any acute abnormalities Encephalopathy, now resolved, may be related to current illness Tenderness, L Big toe no signs of infection on clinical exam xray of the foot/toes: No fractures Likely secondary to arthritis Episode of SVT on Metoprolol IV 2.5mg IV q6h Cardiology on board Transition to metoprolol succinate 2.5 mg p.o. daily Hypotension BP was low on admission. Home nadolol on hold 05/21 Improving, given IV fluids NAFLD Cirrhosis On lactulose--> resume On lasix, aldactone--> on hold Mood disorder Fibromyalgia PO med on hold today as above Hyperlipidemia Po med on hold today as above Chronic pancytopenia Likely secondary to cirrhosis Gets regular PRBC approximately every 2 weeks per patient via chest port Hemoglobin at baseline Monitor Hypothyroidism levothyroxine Diabetes mellitus Hold home antidiabetic agents Continue ISS per protocol Monitor Elevated troponin Maybe due to demand ischemia from infection TTE noted technically difficult, conc LVH, EF 65-70%, mildly dilated LA Card consulted in viewed of NSVT on tele on 05/12/23 Metoprolol started by Cardiology. DVT prophylaxis. Hep sq. Monitor thrombocytopenia Disposition patient's would like patient to return home when medically stable plan of care discussed with patient in detail all questions answered she is understanding, agreeable, comfortable with the plan of care Admission and Anticipated Discharge Date Admission Date: May 09, 2023 Subjective Follow-up for pneumonia, etc. Seen resting in bed, sitting up on 2 L of oxygen In good spirits Talking over the cell phone with her States she feels fine overall Breathing is okay Denies any other new symptom Review of Systems Review of Systems: all noted and negative except for above Physical Exam Physical Exam: General- oriented x 3, not in distress, speaks in sentences with no effort or accessory muscle use Eyes- anicteric Neck- no JVD Lungs- clear breath sounds bilaterally, no wheezing, no crackles noted Heart- normal rate, regular rhythm; no murmurs Abdomen- normal bowel sounds, nondistended, soft, no tenderness Extremities- no pretibial edema, no calf tenderness Neuro- alert, oriented x 3; no gross focal neurologic deficits Skin- warm & dry Results & Data Results & Data Vital Signs (Past 12 Hours) Vital Signs Temp Pulse Pulse Resp BP BP Pulse Ox 05/21/23 07:20 37.0 C 75 18 95/52 L 97 05/21/23 07:18 70 05/21/23 07:03 69 18 92 05/21/23 02:53 37.0 C 80 22 107/68 93 05/20/23 23:17 79 05/20/23 23:27 36.5 C 83 16 95/62 L 93 O2 Del Method O2 Flow Rate 05/21/23 07:20 Nebulizer 6 05/21/23 07:18 05/21/23 07:03 Nasal Cannula 3 05/21/23 02:53 Nasal Cannula 3 05/20/23 23:17 05/20/23 23:27 Nasal Cannula 2 all noted and reviewed including below
[2023-05-21] MEDS: LANTUS PER UNIT CHARGE SQ SCH (10:36)
[2023-05-21] MEDS: INSULIN ASPART PER UNIT CHARGE SC SCH ×4 (10:36→21:07)
[2023-05-21] MEDS: LIDOCAINE 5% 1 PATCH TD SCH (11:26)
[2023-05-22] MEDS: LEVOTHYROXINE SODIUM 150 MCG TABLET PO SCH (06:19)
[2023-05-22] MEDS: ALBUT/IPRATROP 3MG/0.5MG NEB 3 ML VIAL NEB SCH ×2 (07:10→11:02)
[2023-05-22] MEDS: METOPROLOL SUCC 25MG EXT REL TAB PO SCH (07:41)
[2023-05-22] MEDS: LIDOCAINE 5% 1 PATCH TD SCH (07:51)
[2023-05-22] MEDS: ADVANCED PROBIOTIC 1250 MG CAPSULE PO SCH (07:52)
[2023-05-22] MEDS: LACTULOSE SYRUP 30 GM/45 ML UDP PO SCH ×2 (07:52→15:37)
[2023-05-22] MEDS: HEPARIN SOD 5,000 UNIT/0.5 ML VIAL SQ SCH (07:52)
[2023-05-22] MEDS: oxyBUTYnin chloride 5 MG TAB PO SCH (07:53)
[2023-05-22] MEDS: PANTOprazole 40 MG TAB PO SCH (07:53)
[2023-05-22 08:00] LABS: Creatinine Clr Calc Pharmacy 83.6 ml/min; Est GFR (African American) 103.7 ml/min; Est GFR (Non-African American) 89.4 ml/min
[2023-05-22] MEDS: FLUTICASONE/VILANTEROL 200/25MCG 14 PUFFS/INHALER INH SCH (08:02)
[2023-05-22] MEDS: FLUTICASONE PROPIONATE NA SPR 16 GM BTL SCH (08:02)
[2023-05-22 08:04] LABS: Partial Thromboplastin Ratio 1.2; Partial Thromboplastin Time 34.9 Seconds (21.0-31.0)
[2023-05-22] MEDS: INSULIN ASPART PER UNIT CHARGE SC SCH ×2 (09:55→14:35)
[2023-05-22] MEDS: LANTUS PER UNIT CHARGE SQ SCH (09:55)
--- NOTE | 2023-05-22 12:31 | Discharge Summary ---
Discharge Summary Date of Service May 22, 2023 Notes For Next Care Provider Medication Changes From Visit Metoprolol XL 12.5 mg p.o. daily Hold atenolol, isosorbide mononitrate at this time. Admission HPI Per Admitting Provider History obtained from patient, family, and records. Limited history from patient secondary to CPAP. Medical history significant for asthma/restrictive lung disease as per records, mood disorder, fibromyalgia, hypertension, hyperlipidemia, NAFLD cirrhosis, THAD on BiPAP, DM2 insulin requiring, chronic pancytopenia (baseline hemoglobin 10-11), cerebral palsy as per records, hypothyroidism, history of MRSA, hx ESBL UTI. Recent confinement October 2022 for UTI. Patient noted to have junky cough symptoms for about a week. Not sure about sick contacts because she had a recent birthday alliance party. Coughing occasional choking with swallowing. No headache, no chest pain. Achy left-sided abdominal pain with hematuria symptoms as per . Some emesis. Outpatient prednisone and doxycycline course recommended by outpatient provider yesterday. Patient yet to start prescription. Patient noted to be somewhat confused and weak today as per . Worsening respiratory distress at home. O2 sats 60s on room air. Patient coughing out yellow-green sputum. CPAP initiated. Patient brought to the ER for evaluation. IV cefepime, Solu-Medrol, neb treatment administered at the ER. MEDICAL HISTORY: As above. SURGICAL HISTORY: She has had dental surgery, gynecologic section, hip surgery, and tendon repair. FAMILY HISTORY: Heart disease. Diabetes PERSONAL AND SOCIAL HISTORY: Nonsmoker. No chronic intake of alcoholic beverages, disabled. Admission Exam Per Admitting Provider GENERAL: comfortable, obese, no respiratory distress, CPAP in place SKIN: Pallor, warm HEENT: Pale palpebral conjunctivae, no ptosis, dry buccal mucosa NECK : Supple, short neck, no tenderness CHEST : Decreased breath sounds , no tenderness HEART : RRR, no obvious murmurs ABDOMEN: Marked distention, central abdominal tenderness EXTREMITIES : Bilateral LE swelling, no LE tenderness, no other conspicuous deformities noted NEUROLOGIC : Coherent, no facial asymmetry, gait and stance not assessed Principal Dx & Hospital Course #1 = Principal Diagnosis (1) Acute hypoxemic respiratory failure: per previous attending notes with addendum: Aspiration pneumonia Reported vomiting episodes at home CXR noted chronic interstitial thickening, bibasilar scarring/atelectasis CT abd/pelvis noted dependent consolidation in right greater than left lower lobes Sputum culture: MRSA Had coughing bouts while eating and diet was initially changed to pureed Video swallow study was limited due to difficulty positioning but did show penetration with multiple consistencies [employer] reevaluated and made NPO on 05/12/23 discussed case at length with speech therapy service today, including VFSS, recent bedside eval presentation felt to be a possible brainstem infarct patient may not do well with MRI, Repeat CT head ordered: Negative Neuro eval also requested repeat bedside speech eval today requested , patient did better, taking in food, no overt signs of aspiration tolerating minced and moist diet Still on 3 L of oxygen via nasal cannula Completed Vanco + Ertapenem x10 days Will need strict aspiration precautions at home Urinary Tract Infection Abdominal pain resolved UA suggestive of UTI History of ESBL UTI Though patient did not meet 2 SIRS criteria on admission (Had only leukopenia), Sepsis is still a possibility considering possible UTI/pneumonia and lactic acidosis Possible Sepsis due to aspiration pneumonia and UTI Urine culture growing ESBL Klebsiella and Enterococcus fecalis Lactic acidosis likely due to infectious process in the background of cirrhosis and home metformin. Lactate peaked at 5. Considering history of cirrhosis and abd CT showing moderate ascites, IR evaluated for possible diagnostic tap but noted scant ascites too small to tap ID recs noted Completed above antibiotics Encephalopathy, metabolic secondary to above Was reported to have had confusion per on day of admission CT head did not show any acute abnormalities Encephalopathy, now resolved, may be related to current illness Tenderness, L Big toe no signs of infection on clinical exam xray of the foot/toes: No fractures Likely secondary to arthritis Episode of SVT on Metoprolol IV 2.5mg IV q6h Cardiology on board Transition to metoprolol succinate 2.5 mg p.o. daily Hypotension Blood pressure on the lower side Hold nadolol, ISMN for now Reevaluate on follow-up with PCP NAFLD Cirrhosis Resume lactulose and diuretics Mood disorder Fibromyalgia Hyperlipidemia Chronic pancytopenia Likely secondary to cirrhosis Gets regular PRBC approximately every 2 weeks per patient via chest port Hemoglobin at baseline Monitor Hypothyroidism levothyroxine Diabetes mellitus resume home meds Elevated troponin Maybe due to demand ischemia from infection TTE noted technically difficult, conc LVH, EF 65-70%, mildly dilated LA Card consulted in viewed of NSVT on tele on 05/12/23 Disposition d/c home with home health per patient and 's request PCP in 1 week plan of care discussed with patient in detail all questions answered she is understanding, agreeable, comfortable with the plan of care Discharge Exam General- oriented x 3, not in distress, speaks in sentences with no effort or accessory muscle use Eyes- anicteric Neck- no JVD Lungs- clear breath sounds bilaterally, no rales/wheezes Heart- normal rate, regular rhythm; no murmurs Abdomen- normal bowel sounds, nondistended, soft, nontender Extremities- no pretibial edema, no calf tenderness Neuro- alert, oriented x 3; no gross focal neurologic deficits Skin- warm & dry Updated Medication List Medication Instructions Recorded Confirmed Type albuterol sulfate 2.5 mg/3 mL 2.5 mg inhalation Q6H PRN Wheezing 04/30/22 0 05/09/23 History (0.083 %) solution for nebulization aspirin 81 mg chewable tablet 81 mg PO DAILY 04/30/22 05/09/23 History atorvastatin 80 mg tablet 80 mg PO PM 04/30/22 05/09/23 History escitalopram oxalate 20 mg tablet 20 mg PO DAILY 04/30/22 05/09/23 History fluticasone propionate 50 2 spray intranasal DAILY 04/30/22 05/09/23 History mcg/actuation nasal spray,suspension (Flonase Allergy Relief) furosemide 20 mg tablet 20 mg PO DAILY 04/30/22 05/09/23 History gabapentin 300 mg capsule 300 mg PO BID 04/30/22 05/09/23 History gabapentin 300 mg capsule 600 mg PO QPM 04/30/22 05/09/23 History insulin aspart U-100 100 unit/mL See Rx Instructions .Route .COMPLEX 04/30/22 05/09/23 History (3 mL) subcutaneous pen (Novolog FlexPen U-100 Insulin aspart) insulin glargine 100 unit/mL (3 46 unit subcut DAILY 04/30/22 05/09/23 History mL) subcutaneous pen (Lantus Solostar U-100 Insulin) isosorbide mononitrate 30 mg 30 mg PO DAILY 04/30/22 05/09/23 History tablet,extended release 24 hr lidocaine-prilocaine 2.5 %-2.5 % 1 applic topical DIRECTED PRN 04/30/22 05/09/23 History topical cream MEDI-PORT nadolol 40 mg tablet 40 mg PO DAILY 04/30/22 05/09/23 History pantoprazole 20 mg tablet,delayed 40 mg PO BID 04/30/22 05/09/23 History release potassium chloride 10 mEq 10 meq PO QAM 04/30/22 05/09/23 History tablet,extended release silver sulfadiazine 1 % topical 1 applic topical DAILY apply to 04/30/22 05/09/23 History cream wound spironolactone 25 mg tablet 50 mg PO DAILY 04/30/22 05/09/23 History trazodone 50 mg tablet 50 mg PO HS 04/30/22 05/09/23 History metformin 500 mg tablet,extended 500 mg PO DAILY 06/04/22 05/09/23 History release 24 hr lactulose 20 gram/30 mL oral 30 g (45 mL) PO TID #1,200 mL 06/08/22 05/09/23 Rx solution dulaglutide 4.5 mg/0.5 mL 4.5 mg subcut WK 09/21/22 05/09/23 History subcutaneous pen injector (Trulicity) levothyroxine 150 mcg tablet 150 mcg PO DAILYBB 09/21/22 05/09/23 History oxybutynin chloride 5 mg tablet 5 mg PO BID 09/21/22 05/09/23 History benzonatate 200 mg capsule 200 mg PO TID PRN Cough 02/25/23 05/09/23 History cetirizine 10 mg tablet (Zyrtec) 5 mg PO DAILY 02/25/23 05/09/23 History docusate sodium 100 mg capsule 100 mg PO DAILY 02/25/23 05/09/23 History fluticasone 250 mcg-salmeterol 50 1 inh inhalation BID 02/25/23 05/09/23 History mcg/dose blistr powdr for inhalation (Advair Diskus) linaclotide 290 mcg capsule 290 mcg PO DAILYBB 02/25/23 05/09/23 History (Linzess) nitroglycerin 0.4 mg sublingual 0.4 mg sublingual DIRECTED PRN 02/25/23 05/09/23 History tablet (Nitrostat) Chest Pain nystatin 100,000 unit/gram topical 1 applic topical TID PRN NEEDED 02/25/23 0 05/09/23 History powder doxycycline hyclate 100 mg capsule 100 mg PO BID 05/09/23 05/09/23 History wyrtkrts-mwh-zftdl ac 400 1 tab PO QAM 05/09/23 05/09/23 History mcg-calcium carb 500 mg-vit K1 20 mcg tablet (Women's 50 Plus Multivitamin) prednisone 20 mg tablet 40 mg PO DAILY 05/09/23 05/09/23 History L.acidop,casei,lactis,rham-B.lact,holly 2 cap PO DAILY 30 days #60 caps 05/22/23 Rx 625 mg (10 billion cell) capsule (Advanced Probiotic) metoprolol succinate 25 mg 12.5 mg PO QAM 30 days #15 tabs 05/22/23 Rx tablet,extended release 24 hr Hospital Stay Data Consultations 05/09/23 22:13 ED Decision to Admit Stat 05/11/23 10:58 Consult Infectious Diseases Routine 05/12/23 09:55 Consult Cardiology Routine 05/12/23 11:37 Consult Palliative Care Routine 05/17/23 14:17 Consult Neurology Routine Diagnostic Imagining Performed Laboratory Results WBC 4.36 K/ul (4.8-10.8) L 05/20/23 07:33 RBC 2.47 M/uL (4.20-5.40) L 05/20/23 07:33 Hgb 9.1 g/dl (12.0-16.0) L 05/20/23 07:33 Hct 27.7 % (37.0-47.0) L 05/20/23 07:33 MCV 112.1 fL (80.0-100.0) H 05/20/23 07:33 MCH 36.8 pg (25.0-34.0) H 05/20/23 07:33 MCHC 32.9 g/dL (32.0-36.0) 05/20/23 07:33 RDW Std Deviation 76.4 fL (36.4-46.3) H 05/20/23 07:33 RDW Coeff of Bradley 18.7 % (11.5-14.5) H 05/20/23 07:33 Plt Count 43 K/uL (130-400) L 05/20/23 07:33 MPV 13.6 fL (9.4-12.4) H 05/20/23 07:33 Immature Gran % (Auto) 1.0 % 05/18/23 01:15 Neut % (Auto) 70.6 % 05/18/23 01:15 Lymph % (Auto) 15.3 % 05/18/23 01:15 Dawes % (Auto) 8.0 % 05/18/23 01:15 Eos % (Auto) 4.9 % 05/18/23 01:15 Baso % (Auto) 0.2 % 05/18/23 01:15 Neut # (Auto) 3.46 K/uL (1.40-6.50) 05/18/23 01:15 Lymph # (Auto) 0.75 K/uL (1.20-3.40) L 05/18/23 01:15 Dawes # (Auto) 0.39 K/uL (0.11-0.59) 05/18/23 01:15 Eos # (Auto) 0.24 K/uL (0.00-0.50) 05/18/23 01:15 Baso # (Auto) 0.01 K/uL (0.00-0.20) 05/18/23 01:15 Immature Gran # (Auto) 0.05 K/uL (0.01-0.20) 05/18/23 01:15 Absolute Nucleated RBC 0.02 K/uL (0.00-0.12) 05/18/23 01:15 Nucleated RBC % (auto) 0.4 % 05/18/23 01:15 Polychromasia 1+ 05/10/23 02:00 Tear Drop Cells 2+ 05/10/23 02:00 Echinocytes 2+ 05/10/23 02:00 PT 15.4 Seconds (9.0-12.0) H 05/09/23 20:59 INR 1.4 (0.9-1.1) H 05/09/23 20:59 APTT 34.9 Seconds (21.0-31.0) H 05/22/23 07:04 PTT Ratio 1.2 05/22/23 07:04 ABG pH 7.34 (7.35-7.45) L 05/09/23 23:14 ABG pCO2 40 mmHg (35-46) 05/09/23 23:14 ABG pO2 88 mmHg (80-95) 05/09/23 23:14 ABG HCO3 22 mmol/L (19-24) 05/09/23 23:14 ABG O2 Saturation 96.7 % (90-95) H 05/09/23 23:14 ABG Base Excess -3.9 mEq/L (-9-1.8) 05/09/23 23:14 Jorge Test Pos (Pos) 05/09/23 23:14 VBG pH 7.28 (7.36-7.41) L 05/09/23 21:04 VBG pCO2 40 mmHg (38-50) 05/09/23 21:04 VBG pO2 71 mmHg 05/09/23 21:04 VBG HCO3 19 mmol/L 05/09/23 21:04 VBG O2 Saturation 93.5 % 05/09/23 21:04 VBG Base Excess -7.5 mEq/L 05/09/23 21:04 Oxygen Given CPAP 40% 05/09/23 23:14 Sodium 140 mmol/L (136-145) 05/19/23 05:17 Potassium 3.5 mmol/L (3.5-5.1) 05/19/23 05:17 Chloride 112 mmol/L (98-107) H 05/19/23 05:17 Carbon Dioxide 24 mmol/L (21-32) 05/19/23 05:17 Anion Gap 4 (3-11) 05/19/23 05:17 BUN 8 mg/dl (6-23) 05/19/23 05:17 Creatinine 0.69 mg/dl (0.6-1.2) 05/22/23 07:04 Est Cr Clr Drug Dosing 83.6 ml/min 05/22/23 07:04 Est GFR ( Amer) 103.7 ml/min 05/22/23 07:04 Est GFR (Non-Af Amer) 89.4 ml/min 05/22/23 07:04 BUN/Creatinine Ratio 14.3 (10-20) 05/19/23 05:17 Glucose 117 mg/dl (70-99(Fasting)) H 05/19/23 05:17 POC Glucose 142 mg/dl (70-99) H 05/22/23 11:54 Lactate 1.9 mmol/L (0.4-2.0) 05/18/23 01:15 Calcium 8.0 mg/dl (8.6-10.3) L 05/19/23 05:17 Phosphorus 2.1 mg/dl (2.5-4.9) L 05/17/23 06:33 Magnesium 1.7 mg/dl (1.7-2.4) 05/17/23 06:33 Total Bilirubin 2.1 mg/dl (0.2-1.0) H 05/15/23 07:39 Direct Bilirubin 0.9 mg/dl (0-0.2) H 05/15/23 07:39 AST 68 U/L (13-39) H 05/15/23 07:39 ALT 70 U/L (7-52) H 05/15/23 07:39 Alkaline Phosphatase 81 U/L (34-104) 05/15/23 07:39 Ammonia 28.0 umol/L (18-72) 05/16/23 03:38 Lactate Dehydrogenase 355 U/L (86-244) H 05/10/23 05:55 Troponin I High Sens 34.8 pg/ml (0-14) H 05/12/23 06:00 C-Reactive Protein 3.37 mg/dl (0-0.5) H 05/16/23 03:38 Total Protein 5.3 gm/dl (6.0-8.3) L 05/15/23 07:39 Albumin 2.5 gm/dl (3.4-5.0) L 05/15/23 07:39 Globulin 3.1 gm/dl (2.5-4.0) 05/13/23 07:29 Albumin/Globulin Ratio 0.9 (0.9-2) 05/13/23 07:29 Lipase 8 U/L (11-82) L 05/09/23 20:59 Lipase Cancelled 05/09/23 20:59 Vitamin B12 1487 pg/ml (180-914) H 05/14/23 05:14 Folate 17.38 ng/ml (>5.38) 05/14/23 05:14 Procalcitonin 0.14 ng/ml (0-0.5) 05/16/23 03:38 Urine Color [place] 05/09/23 21:20 Urine Appearance Cloudy (Clear) A 05/09/23 21:20 Urine pH 5.5 (4.5-7.5) 05/09/23 21:20 Ur Specific [place] 1.026 (1.000-1.030) 05/09/23 21:20 Urine Protein 3+ (Negative) H 05/09/23 21:20 Urine Glucose (UA) Negative (Negative) 05/09/23 21:20 Urine Ketones Trace (Negative) H 05/09/23 21:20 Urine Blood 3+ (Negative) H 05/09/23 21:20 Urine Nitrite Positive (Negative) A 05/09/23 21:20 Urine Bilirubin 1+ (Negative) H 05/09/23 21:20 Urine Urobilinogen Negative (Negative) 05/09/23 21:20 Ur Leukocyte Esterase 1+ (Negative) H 05/09/23 21:20 Urine WBC (Auto) >30 /hpf (0-5) H 05/09/23 21:20 Urine RBC (Auto) >30 /hpf (0-4) H 05/09/23 21:20 U Hyaline Cast (Auto) 1-5 /lpf (0-5) 05/09/23 21:20 U Epithel Cells (Auto) >30 /lpf (0-5) H 05/09/23 21:20 Urine Bacteria (Auto) 3+ (Negative) H 05/09/23 21:20 Urine Yeast Not Reportable 05/09/23 21:20 Nasal Screen MRSA (PCR) Positive (Negative) A 05/09/23 22:40 Random Vancomycin 28.2 mcg/ml (10-20) H* 05/19/23 12:58 Adenovirus (PCR) Not Detected (NotDetected) 05/09/23 21:00 B. pertussis DNA (PCR) Not Detected (NotDetected) 05/09/23 21:00 B.parapertussis DNA PCR Not Detected (NotDetected) 05/09/23 21:00 C. pneumoniae DNA (PCR) Not Detected (NotDetected) 05/09/23 21:00 Coronavirus OC43 (PCR) Not Detected (NotDetected) 05/09/23 21:00 Coronavirus HKU1 (PCR) Not Detected (NotDetected) 05/09/23 21:00 Coronavirus 229E (PCR) Not Detected (NotDetected) 05/09/23 21:00 SARS-CoV-2 (PCR) Not Detected (NotDetected) 05/09/23 21:00 Coronavirus NL63 (PCR) Not Detected (NotDetected) 05/09/23 21:00 Human Metapneumovir PCR Not Detected (NotDetected) 05/09/23 21:00 Influenza Type A (PCR) Not Detected (NotDetected) 05/09/23 21:00 Influenza Type B (PCR) Not Detected (NotDetected) 05/09/23 21:00 Urine Legionella Ag SEE NOTE 05/15/23 06:27 M. pneumoniae (PCR) Not Detected (NotDetected) 05/09/23 21:00 Parainfluenza 1 (PCR) Not Detected (NotDetected) 05/09/23 21:00 Parainfluenza 2 (PCR) Not Detected (NotDetected) 05/09/23 21:00 Parainfluenza 3 (PCR) Not Detected (NotDetected) 05/09/23 21:00 Parainfluenza 4 (PCR) Not Detected (NotDetected) 05/09/23 21:00 RSV (PCR) Not Detected (NotDetected) 05/09/23 21:00 Entero/Rhino (PCR) Not Detected (NotDetected) 05/09/23 21:00 Blood Type A Positive 05/10/23 05:55 Antibody Screen NEGATIVE 05/10/23 05:55 Impressions Abdomen/Pelvis CT 05/10/23 00:14 Exam(s): CT ABDOMEN + PELVIS Without Contrast EXAM: CT Abdomen and Pelvis Without Intravenous Contrast CLINICAL HISTORY: Reason for exam: hematuria. TECHNIQUE: Axial computed tomography images of the abdomen and pelvis without intravenous contrast. Automated exposure control was utilized for the study. A dose lowering technique was utilized adhering to the principles of ALARA. COMPARISON: No relevant prior studies available. FINDINGS: Limitations: Limited evaluation in the absence of contrast. Lung bases: Dependent consolidation within the right greater than left lower lobes which likely relates to infection/aspiration changes. ABDOMEN: Liver: Cirrhotic morphology of the liver. Gallbladder and bile ducts: Unremarkable. No calcified stones. No ductal dilation. Pancreas: Unremarkable. No ductal dilation. Spleen: Unremarkable. The spleen measures 13.4 cm in maximum dimension. Adrenals: Unremarkable. No mass. Kidneys and ureters: No evidence of obstructive renal calculi or signs of collecting system dilatation. Nonobstructive calculi noted within the kidneys, the largest within the interpolar left kidney measuring up to 6 mm. Small foci of gas noted within the left renal collecting system. Findings may be due to sequelae of ascending urinary tract infection. Consider correlation with laboratory values. Stomach and bowel: Unremarkable. No obstruction. No mucosal thickening. PELVIS: Appendix: No findings to suggest acute appendicitis. Bladder: Cline within the bladder with gas the bladder dome. This may be due to Cline placement. Cystitis also possible. No stones. Reproductive: IUD in situ. ABDOMEN and PELVIS: Intraperitoneal space: Moderate volume of abdominal and pelvic ascites. No free air. Bones/joints: Degenerative changes in the spine. No acute fracture. No dislocation. Soft tissues: Unremarkable. Vasculature: Atherosclerotic disease. Esophageal, gastric, and splenic varices. No abdominal aortic aneurysm. Lymph nodes: Unremarkable. No enlarged lymph nodes. IMPRESSION: 1. No evidence of obstructive renal calculi or signs of collecting system dilatation. Nonobstructive calculi noted within the kidneys, the largest within the interpolar left kidney measuring up to 6 mm. 2. Small foci of gas noted within the left renal collecting system. Findings may be due to sequelae of ascending urinary tract infection. Consider correlation with laboratory values. 3. Cline within the bladder with gas the bladder dome. This may be due to Cline placement. Cystitis also possible. 4. Cirrhotic morphology of the liver with sequela of portal hypertension including moderate mesenteric ascites and esophageal, gastric, and splenic varices. Additional splenomegaly noted. 5. Moderate volume of abdominal and pelvic ascites. 6. No other acute findings. Electronically signed by: Jarett Zarate MD 05/10/23 06:37 AM Abdomen Ultrasound 05/10/23 10:43 ULTRASOUND ASCITES CHECK CLINICAL HISTORY: Paracentesis to evaluate for spontaneous bacterial peritonitis. COMPARISON STUDY: Abdominal CT dated 05/10/2023. FINDINGS: Real-time grayscale sonography of all 4 quadrants of the abdomen is performed to evaluate abdominal ascites in preparation for a paracentesis procedure. There is a small volume of abdominal ascites, greatest overlying the liver. This was insufficient for paracentesis. IMPRESSION: Small volume of abdominal ascites, which was insufficient for paracentesis. The procedure was deferred. Electronically signed by: Selvin Barroso M.D. 05/10/2023 2:54 PM Videofluoroscopic Swallow 05/11/23 13:30 MODIFIED BARIUM SWALLOW CLINICAL HISTORY: assess for aspiration COMPARISON STUDY: None. FLUOROSCOPY TIME: 1.45 minutes. Ka, r: 19 mGy. TECHNIQUE: A modified barium swallow was performed in conjunction with Speech Pathology. The patient ingested varying consistencies of barium containing material. Video fluoroscopy was performed. FINDINGS: This exam was mildly compromised given difficulty positioning. No tracheal aspiration was identified with thin liquids, nectar thick liquids, pudding or cracker with pudding consistency. Penetration was noted with multiple consistencies. Residuals were noted with crackers and cracker pudding consistencies. Epiglottic inversion was normal. Laryngeal elevation was normal. IMPRESSION: 1. Exam mildly compromised given difficulty positioning. However, no tracheal aspiration identified. Penetration with multiple consistencies. 2. Full recommendations by Speech pathology to follow. ACT 112: Negative or not required by law. Electronically signed by: Lucas Lambert M.D. 05/11/2023 3:02 PM Chest X-Ray 05/15/23 23:21 XR chest 1V portable HISTORY: Shortness of breath. COMPARISON: 05/12/2023. FINDINGS: No pneumothorax. Rotated study. Right Port-A-Cath terminates at the superior cavoatrial junction. Bibasilar densities and small bilateral pleural effusions persist. Mild congestive changes again noted. Volume loss within the right hemithorax and a right basilar density have slightly improved. The heart remains enlarged. IMPRESSION: 1. Slight improved aeration within the right hemithorax and right basilar density. 2. Small bilateral pleural effusions and bibasilar densities again noted. 3. Hepatomegaly with mild congestive change. ACT 112: Negative or not required by law. Electronically signed by: Cecil Matthew M.D. 05/16/2023 8:[address] 05/17/23 10:34 CT head/brain wo con CLINICAL HISTORY: 68 years-old Female with dysphagia, r/o cva. Acute stroke like symptoms TECHNIQUE: Multiple axial CT images of the head were obtained without contrast. A dose lowering technique was utilized adhering to the principles of ALARA. CT DOSE: 547.75 mGy.cm COMPARISON: 05/10/2023 FINDINGS: No acute intracranial hemorrhage, midline shift, intracranial mass, hydrocephalus, territorial ischemia or abnormal extra-axial collection. 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 White matter hypodensities suggestive of chronic microvascular ischemic disease. Motion degraded exam. The calvarium is intact. Moderate mucosal thickening in the left sphenoid sinus with air-fluid level. Mastoid air cells are clear. IMPRESSION: Chronic findings as above without acute intracranial abnormality. ACT 112: Negative or not required by law. The above report was generated using voice recognition software. It may contain grammatical, syntax or spelling errors. Electronically signed by: Serg Torres M.D. 05/17/2023 11:58 AM Brain MRI 05/18/23 18:14 Exam(s): MRI HEAD Without Contrast EXAM: MR Head Without Intravenous Contrast CLINICAL HISTORY: Reason for exam: dysphagia, r/o acute cva. TECHNIQUE: Magnetic resonance images of the head/brain without intravenous contrast in multiple planes. COMPARISON: Head CT of 05/10/2023 and 05/17/2023 FINDINGS: Brain: Mild periventricular white matter changes, likely related to chronic microangiopathy. No hemorrhage. No acute infarct. Ventricles: Unremarkable. No ventriculomegaly. Bones/joints: Unremarkable. Sinuses: Near complete opacification of bilateral sphenoid sinuses. No acute sinusitis. Mastoid air cells: Unremarkable as visualized. No mastoid effusion. Orbits: Unremarkable as visualized. IMPRESSION: 1. Mild periventricular white matter changes, likely related to chronic microangiopathy. 2. Near complete opacification of bilateral sphenoid sinuses. Electronically signed by: Biju Sanchez M.D. 05/19/23 00:13 AM Foot X-Ray 05/20/23 16:14 LEFT FOOT 2 VIEWS CLINICAL HISTORY: Left first toe pain. FINDINGS: AP oblique and crosstable lateral portable views of the left foot are compared to study dated 11/07/2017. The examination is degraded by inability to properly position the patient. The skeletal structures are heterogeneously osteopenic. No acute fracture is seen. Moderate osteoarthritic change is noted throughout the foot. A high arch is observed. No erosive disease is identified. Soft tissue edema is noted. Soft tissue calcifications are seen along the course of the Achilles tendon. IMPRESSION: No acute bony abnormality is identified. Electronically signed by: Selvin Barroso M.D. 05/20/2023 5:19 PM 05/10/23 00:14 CT abd pelvis wo con Stat CT head/brain wo con Stat 05/10/23 10:43 US abdomen ltd ascites Urgent 05/11/23 13:30 FL video swallow Routine 05/17/23 10:34 CT head/brain wo con Routine 05/18/23 18:14 MRI Brain [MR brain wo con] Routine Pending Results Patient Have Any Pending Studies at Discharge: No Discharge Instructions Given to Patient (Per Discharging Provider) Please follow aspiration precautions strictly. Minced and moist diet, mildly thick liquids Patient must be upright for all oral intake including taking medication. Complete mouth care at least twice a day Alternate solids and liquids Supervised meals Fully alert and upright Oral hygiene Single bites/small sips/slow rate Use 3 L of oxygen at all times. PLEASE REFER TO YOUR NEW MEDICATION LIST AND FOLLOW INSTRUCTIONS CAREFULLY. YOUR NEW MEDICATION INCLUDE: Metoprolol XL 12.5 mg p.o. daily in the morning next Hold atenolol, isosorbide mononitrate at this time. Further advised to be given by primary care physician on follow-up visit. PLEASE CALL YOUR PRIMARY CARE PHYSICIAN OR RETURN TO THE ER IF WITH WORSENING OF SYMPTOMS, INCLUDING Shortness of breath, cough, fevers or chills, chest pain, palpitations, etc. FOLLOW UP WITH PRIMARY CARE PHYSICIAN OUTLINED ABOVE. Total Time Total Time Spent Total Time Spent (In Minutes): >30 minutes
[2023-05-22] MEDS: HEPARIN 100 UNIT/ML 5ML FLUSH FLUSH PRN (15:40)
== END 2023-05-22 16:10 | disposition home health service (06) | DRG 871 ==
LOC: ED 20:29 → 2E 23:51 → SUATTDRO 23:51 → 2E 05-10 03:34 → 2N 05-19 19:52